=== PATIENT | male | born 1945 | race Caucasian/White ===

== ENCOUNTER 2018-04-17 08:20 | Day surgery (SDC) | payer MEDICARE, SELFPAY ==
[2018-04-17 08:44] VITALS: BP 129/64; PULSE 76; RESP 16; TEMP 36.2; O2SAT 94; BMI 36.3
[2018-04-17 09:40] LABS: Bedside Glucose 201 mg/dL (70-110)
--- NOTE | 2018-04-17 10:11 | PCM.OPRPT ---
Problem List (1) Personal history of colonic polyps Status: Acute Report of Operation Date of Procedure: 04/17/18 Pre-Operative Diagnosis: z86.010 personal history of colonic polyps Post-Operative Diagnosis: Same Surgery/Procedure Performed:: [id number] colonoscopy Type of Anesthesia:: MAC Description of Procedure: Patient was brought into the endoscopy suite. Placed in the left lateral decubitus position. Patient was given graded anesthesia. Colonoscope was inserted into the rectum. It was directed through the rectum, sigmoid colon, descending colon, transverse colon, ascending colon, to the cecum without difficulty operative findings: 1. Cecum: Normal appearance no mass lesions normal ileocecal valve. 2. Ascending colon: Normal appearance no mass lesions. 3. Transverse colon: Normal appearance no mass lesions 4. Descending colon: Normal in appearance no mass lesions. 5. Sigmoid colon: Normal appearance no mass lesions. 6. Rectum: Normal appearance no mass lesions retroflexion did show some internal hemorrhoids. Rectal exam showed no masses smooth prostate He will need another colonoscopy in 10 years - Admit VTE Documentation VTE Present on Admission: No VTE Mechan Device Prophylaxis: None VTE Pharm Prophylaxis ordered?: No Reason prophylaxis not ordered:: Treatment Not Indicated
--- NOTE | 2018-04-17 10:14 | OP.PCM_ITS ---
Problem List (1) Personal history of colonic polyps Status: Acute Report of Operation Date of Procedure: 04/17/18 Pre-Operative Diagnosis: z86.010 personal history of colonic polyps Post-Operative Diagnosis: Same Surgery/Procedure Performed:: [id number] colonoscopy Type of Anesthesia:: MAC Description of Procedure: Patient was brought into the endoscopy suite. Placed in the left lateral decubitus position. Patient was given graded anesthesia. Colonoscope was inserted into the rectum. It was directed through the rectum, sigmoid colon, descending colon, transverse colon, ascending colon, to the cecum without difficulty operative findings: 1. Cecum: Normal appearance no mass lesions normal ileocecal valve. 2. Ascending colon: Normal appearance no mass lesions. 3. Transverse colon: Normal appearance no mass lesions 4. Descending colon: Normal in appearance no mass lesions. 5. Sigmoid colon: Normal appearance no mass lesions. 6. Rectum: Normal appearance no mass lesions retroflexion did show some internal hemorrhoids. Rectal exam showed no masses smooth prostate He will need another colonoscopy in 10 years - Admit VTE Documentation VTE Present on Admission: No VTE Mechan Device Prophylaxis: None VTE Pharm Prophylaxis ordered?: No Reason prophylaxis not ordered:: Treatment Not Indicated
[2018-04-17 10:15] VITALS: BP 116/67; BP 129/64; PULSE 74; RESP 18; TEMP 36.7; O2SAT 94
[2018-04-17 10:20] VITALS: BP 107/80; BP 129/64; PULSE 124; RESP 18; O2SAT 95
[2018-04-17 10:25] VITALS: BP 123/72; BP 129/64; PULSE 73; RESP 18; O2SAT 93
[2018-04-17 10:29] VITALS: BP 123/72; BP 129/64; PULSE 79; RESP 18; TEMP 36.1; O2SAT 94
[2018-04-17 10:43] VITALS: BP 129/64
== END 2018-04-17 10:44 | disposition home or self-care (01) ==
LOC: EN 08:21 → AC 08:21
PROVIDERS: Family Provider Family Medicine; PCP Family Medicine; Visit Provider Surgery
PROC: 0DJD8ZZ Inspection of Lower Intestinal Tract, Via Natural or Artificial Opening Endoscopic (ICD-10-PCS; CPT 45378; principal; 2018-04-17 09:55)
DX: K64.8 Other hemorrhoids (principal); E11.9 Type 2 diabetes mellitus without complications; E78.00 Pure hypercholesterolemia, unspecified; I10 Essential (primary) hypertension; Z87.891 Personal history of nicotine dependence; Z86.010 Personal history of colon polyps
CPT/HCPCS: 45378; 82962; J7120; J1610

== ENCOUNTER → 2019-01-08 14:58 | Outpatient (CLI) | payer MEDICARE, SELFPAY ==
--- NOTE | 2019-01-08 15:02 | CT_ITS ---
We are attempting to reach Joaquim Travis, TANIA to discuss findings. An addendum with communication details will be sent when the communication is complete. STUDY: CT ABDOMEN AND PELVIS WITH CONTRAST REASON FOR EXAM: Male, 73 years old. Suspected partial intestinal obstruction RADIATION DOSAGE (If Supplied By Facility): CTDIvol = ( 19.34 ) mGy, DLP = ( 2257.15 ) mGycm TECHNIQUE: Transaxial images were obtained from the dome of the diaphragm to the symphysis pubis with oral contrast. 100 IV/Oral Isovue 300 was administered. Sagittal and coronal images were reconstructed. Individualized dose optimization techniques were used for this CT. COMPARISON: None. FINDINGS: The visualized lung bases are unremarkable. The visualized portions of the heart are within normal limits. Normal liver. There are layering gallstones within the otherwise normal gallbladder. Normal biliary ductal system. Normal spleen. Normal pancreas. Normal bilateral adrenal glands. There is mild stranding of the right. Nephric fat. The kidney appears grossly normal. There is no renal calculi and hydronephrosis. Normal right ureter. There is mild stranding of the left perinephric fat. There is there are at least 3 cortical cysts, 2 of which appear exophytic. There is no renal calculi. The left ureter appears minimally prominent at. There is a irregular calcific density at the level of the left UVJ which may be partially obstructing the ureter. Normal visualized stomach. Normal small intestine. Normal colon. The appendix is visualized and appears normal. There is diffuse atherosclerotic calcification of the abdominal aorta, without a demonstrated aneurysm. Normal inferior vena cava. Normal retroperitoneum. Urinary bladder is well distended. The prostate is enlarged and invaginates into the bladder floor. In the left pelvis adjacent to the projecting prostate is irregular star shaped calcification measuring 2.4 x 2.6 x 2 cm which is thought to partially obstruct the left ureter. No other masses are seen in the bladder lumen. No pelvic lymphadenopathy. No free air or free fluid is seen within the peritoneal cavity. Normal abdominal wall. There are diffuse degenerative changes of the visualized lumbar spine. CT/Abdomen/Pelvis WITH Contrast IMPRESSION: 1. Large irregular calcification left pelvis. This may be causing partial obstruction of the left ureter. This is thought to represent a bladder calculus. 2. Markedly enlarged prostate which invaginates in the bladder floor. 3. Mild stranding of the bilateral perinephric fat. 4. Left renal calculi. 5. Gallstones without acute cholecystitis. 6. Degenerative changes of the lumbar spine Electronically Signed: Arben Simmons DO at 16:01 EDT Tel [phone], Service support ,
[2019-01-08 15:16] LABS: CREATININE FINGERSTICK 1.2 mg/dL (0.70-1.30); EGFR FINGERSTICK > 60.0000 mL/min (>60)
== END ==
PROVIDERS: Family Provider Family Medicine; PCP Family Medicine; Referring Provider Physician Assistant; Visit Provider Physician Assistant
DX: K56.600 Partial intestinal obstruction, unspecified as to cause (principal)
CPT/HCPCS: 74177; Q9967

== ENCOUNTER 2019-02-07 10:22 | Day surgery (SDC) | payer MEDICARE, SELFPAY ==
[2019-02-07 11:14] VITALS: BP 143/66; PULSE 68; RESP 18; TEMP 36.4; O2SAT 99; BMI 36.4
[2019-02-07] MEDS: Cefazolin 2 GM in 0.9% Normal Saline 100 ML IV (13:35)
--- NOTE | 2019-02-07 13:39 | DCINST_ITS ---
Discharge Diet: Light diet - advance as tolerated Discharge Activity: Return to Normal Activity Call your doctor if you observe: Fever of 101 or Higher Suture Line Care: Avoid Pulling/Pushing, Avoid Pinching/Bending Instructions: Cystoscopy Allergies/Adverse Reactions: Allergies amoxicillin Allergy (Verified 02/07/19 11:13) Rash Medications to take at Discharge Atenolol [Tenormin (beta Marcela)] 50 mg PO DAILY 04/21/15 Glimepiride [Amaryl] 4 mg PO BID 04/21/15 Insulin Glargine,Hum.rec.anlog [Lantus] 70 unit SQ QHS 04/21/15 Lisinopril [Zestril] 10 mg PO DAILY 04/21/15 Metformin HCl [Glucophage] 1,000 mg PO BIDCM 04/21/15 Simvastatin [Zocor] 40 mg PO QHS 04/21/15 Ciprofloxacin [Cipro] 500 mg PO BID #6 tab 02/07/19 Primary Care Physician: Jeff Subramanian MD [Primary Care Provider] - Test Results: Test results from this visit will be discussed in further detail at your follow- up appointment, if applicable. Please Follow Up With: Tom Daley MD When: in 2 weeks, please call to make an appointment.
--- NOTE | 2019-02-07 14:20 | OP.PCM_ITS ---
Report of Operation Date of Procedure: 02/07/19 Pre-Operative Diagnosis: Bladder stone and BPH with obstruction Post-Operative Diagnosis: Same Surgery/Procedure Performed:: Cystoscopy and cystolitholapaxy and laser of a very large bladder stone and evacuation of stone fragments Description of Surgical Findings:: 73-year-old male with a large bladder stone presents to the office with frequency urgency in terms and BPH and obstructive symptoms in the office we found a very large bladder stone large obstructive prostate today we will proceed with a cystoscopy to evaluate the bladder stone removal bladder stones and then will just discuss options for treatment for his prostate. Patient was taken back to the operating room at the smooth induction of anesthesia he was placed in dorsolithotomy position the penis testicles were prepped and draped in usual sterile fashion. Went into the bladder with a 26 [place]inean continuous flow resectoscope put in the obturator sheath with the laser bridge to the resectoscope I then used a 2000 laser fiber encountered a large stone with multiple branches in the bladder base I then used the laser and laser the stone little tiny pieces all the stones then were flushed out of the bladder took quite a long time the laser the stone it was a very large stone and then once I got done lasering the stone then looked at the anatomy he had a very heavily trabeculated bladder with left lateral diverticuli a lot of heavy trabeculation the prostate was obstructed he had a large median lobe large lateral lobes probably his best treatment option would be a TURP I will talk to the patient after words regarding this for now we will start him on medical therapy with Flomax. At the end of the case he had a significant amount of trauma within the bladder and prostate because of the lesion is large stone I do not think he will be able to urinate successfully we left a 20 Guinean catheter into help drain the bladder over the weekend and he will be back on Sunday or Sunday to remove the catheter patient's anesthetic is currently being reversed. Type of Anesthesia:: General Drains: askew - Admit VTE Documentation VTE Present on Admission: No VTE Mechan Device Prophylaxis: SCD's
[2019-02-07 14:30] VITALS: BP 136/83; BP 143/66; PULSE 75; RESP 16; TEMP 36.6; O2SAT 94
[2019-02-07 14:45] VITALS: BP 143/66; BP 147/76; PULSE 71; RESP 18; O2SAT 93
[2019-02-07 14:56] LABS: Bedside Glucose 94 mg/dL (70-110)
[2019-02-07 15:00] VITALS: BP 143/66; BP 149/80; PULSE 77; RESP 18; TEMP 36.2; O2SAT 94
[2019-02-07 15:35] VITALS: BP 143/66; BP 152/75; PULSE 68; RESP 16; TEMP 36.1; O2SAT 94
[2019-02-11 05:06] LABS: Bedside Glucose 128 mg/dL (70-110)
== END 2019-02-07 16:55 | disposition home or self-care (01) ==
LOC: SDC 10:24 → AC 10:25
PROVIDERS: Family Provider Family Medicine; PCP Family Medicine; Referring Provider Urology; Visit Provider Urology
PROC: (CPT 52318; principal; 2019-02-07 12:40)
DX: N40.1 Benign prostatic hyperplasia with lower urinary tract symptoms (principal); N21.0 Calculus in bladder; N32.89 Other specified disorders of bladder; R33.8 Other retention of urine; R35.0 Frequency of micturition; R39.15 Urgency of urination; N13.8 Other obstructive and reflux uropathy; E11.9 Type 2 diabetes mellitus without complications; I10 Essential (primary) hypertension; Z87.891 Personal history of nicotine dependence; G47.30 Sleep apnea, unspecified; H26.9 Unspecified cataract; H91.90 Unspecified hearing loss, unspecified ear; E66.9 Obesity, unspecified; Z68.38 Body mass index [BMI] 38.0-38.9, adult
CPT/HCPCS: 00910; 52318; 82962; J7120; J2405

== ENCOUNTER 2019-11-18 08:38 | Emergency (ER) | payer MEDICARE, SELFPAY ==
[2019-11-18 08:41] VITALS: BP 168/89; PULSE 79; RESP 16; TEMP 36.4; O2SAT 96; BMI 37.3
--- NOTE | 2019-11-18 08:54 | CT_ITS ---
STUDY: CT ABDOMEN AND PELVIS WITH CONTRAST REASON FOR EXAM: Male, 74 years old. PT STATED LOWER ABDOM PAIN, HX OF HTN, DIABETIC RADIATION DOSAGE (If Supplied By Facility): CTDIvol = ( 16.98 ) mGy, DLP = ( 1501.70 ) mGycm TECHNIQUE: Transaxial images were obtained from the dome of the diaphragm to the symphysis pubis with oral contrast. Oral and amp; IV Gastrografin and amp; 100mL Isovue-300 was administered. Sagittal and coronal images were reconstructed. Individualized dose optimization techniques were used for this CT. COMPARISON: Comparison is made with prior study dated January 08, 2019. FINDINGS: Stable minimal increased markings at the lung bases suggestive of mild scarring. Coronary artery calcification. There is decreased attenuation of the liver consistent with steatosis. Multiple small layering gallstones along the dependent portion of the neck of the gallbladder. Normal spleen. Normal pancreas. Normal bilateral adrenal glands. Normal right kidney. Stable 1 cm cyst in the lower pole of the left kidney. Mild degree of nonspecific bilateral perinephric stranding. There is a small hiatal hernia. Normal small intestine. Normal colon. The appendix is visualized and appears normal. There is diffuse atherosclerotic calcification of the abdominal aorta, without a demonstrated aneurysm. Normal inferior vena cava. Normal retroperitoneum. Distended urinary bladder. Multiple tiny calculi are seen along the posterior bladder base. There are prostatic calcifications. Mild prostatic enlargement with indentation at the bladder base. There is a small umbilical hernia containing fat. Small bilateral inguinal hernias containing fat. There are degenerative changes of the visualized lumbar spine. CT/Abdomen/Pelvis WITH Contrast IMPRESSION: Fatty infiltration of the liver. Multiple small layering gallstones. Distended urinary bladder. Small calculi are seen at the base of the urinary bladder. Mild prostatic hypertrophy with prostatic calcifications. Electronically Signed: Александр Lei, at 11:08 EST , Service support ,
--- NOTE | 2019-11-18 08:56 | ED.VISSUMM ---
- ER Visit Summary Date of Service: 11/18/19 Chief Complaint: Abdominal pain History of Present Illness: The patient is a 74 M who presents with abdominal pain that began earlier this morning. Patient states the pain is constant throughout the morning. Patient describes the pain as aching. Patient states pain is over the lower abdomen. Patient states nothing makes it better or worse. Patient admits to some nausea and vomiting with dry heaves. Patient denies any hematemesis or coffee-ground emesis. Patient denies any diarrhea, melena, or hematochezia. Patient denies any dysuria or hematuria. Physical Examination: Vital signs are stable. Patient is afebrile. Patient is in no acute distress. Oral mucosa is pink and moist. Neck is supple. Trachea is midline. There is no JVD. Heart was regular rate and rhythm. Lungs are clear and equal bilateral. Abdomen is soft. Bowel sounds are normal. There is diffuse tenderness but worse over the lower abdomen. There is no rebound or guarding noted. There are no masses palpated. Cranial nerves II through XII are intact. There are no focal motor or sensory deficits noted. Test Results: CBC showed a mild leukocytosis of 17.4. Comprehensive metabolic profile showed a slightly elevated glucose of 220. CT scan of the abdomen and pelvis was obtained. There is a distended bladder. There is no acute process. Emergency Department Course and Treatment: Patient was given morphine and Zofran here. A straight cath was ordered. Patient was able to urinate 500 cc of urine prior to the straight catheter being placed. Patient felt better after this. Patient was advised of his findings. Patient was instructed to follow-up with his primary care physician in 5 to 7 days. Patient understood and was agreeable with the plan. All questions were answered. Disposition: Discharge home Impression: Abdominal pain This note was generated with [email or web address] dictation software. It may contain incorrect words, spelling, and punctuation that were not noted in review of the chart prior to signing ED Disposition - Plan for ED Patient: Disposition: Home or Assisted Living Diagnosis: Abdominal pain Instructions: URINARY RETENTION, Male, ABDOMINAL PAIN, Unkown Cause, (Male) Referrals: Jeff Subramanian MD [Primary Care Provider] - 5-7 Days
[2019-11-18] MEDS: 0.9% Normal Saline 1,000 ML 1000 ML IV (09:09)
[2019-11-18] MEDS: Morphine 4 MG/ML Syringe IV (09:10)
[2019-11-18] MEDS: Ondansetron 4 MG/2 ML Vial IV ×2 (09:10→11:05)
[2019-11-18 09:27] LABS: Absolute Lymphocyte Count 0.91 X10^3/uL (0.83-4.51); Absolute Neutrophil Count 15.4 X10^3/uL (2.0-7.7); Basophil# 0.04 X10^3/uL; Basophil% 0.2 % (0-1); Eosinophil# 0.03 X10^3/uL; Eosinophils% 0.2 % (0-5); Hematocrit 45.5 % (40-54); Hemoglobin 15.2 g/dL (13.0-16.5); Lymphocyte # 0.91 X10^3/ul (4.0); Lymphocyte % 5.2 % (19-41); Mean Corp Hgb Conc 33.4 g/dL (32-36); Mean Corpuscular Hgb 28.5 pg (27.0-32.0); Mean Corpuscular Volume 85.4 fL (80-94); Mean Platelet Vol. 11.4 fl (6.2-12.0); Monocyte# 0.91 X10^3/uL; Monocyte% 5.2 % (0-10); NRBC Flagged by Analyzer 0 % (0-5); Neutrophil # 15.41 X10^3/uL (2.7-7.7); Neutrophil % 88.8 % (47-70); Platelet Count 195 K/mm3 (150-450); RBC Distribution Width CV 12.6 % (11.6-14.6); RBC Distribution Width SD 38.7 fl (35.1-43.9); Red Blood Count 5.33 M/mm3 (4.6-6.2); White Blood Count 17.4 K/mm3 (4.4-11.0)
[2019-11-18 09:45] LABS: AST(SGOT) 20 U/L (15-37); Alanine Aminotransfer ALT/SGPT 38 U/L (16-61); Albumin, Serum 3.7 g/dL (3.2-5.0); Alkaline Phosphatase 79 U/L (45-117); Anion Gap 6 (5-15); BUN 17 mg/dL (7-18); BUN/Creat Ratio 16.5 RATIO (10-20); Calcium,Total 8.8 mg/dL (8.5-10.1); Chloride 104 mmol/L (98-107); Creatinine, Serum 1.03 mg/dL (0.70-1.30); EST Glomerular Filtration Rate 75 mL/min (>60); Est Glom Filt Rate - Afr Amer 90 mL/min (>60); Estimated Creatinine Clearance 70.03 ml/min; Globulin 3.7 g/dL (2.2-4.2); Glucose 220 mg/dL (74-106); Lipase 130 U/L (73-393); Protein, Total 7.4 g/dL (6.4-8.2); Sodium Level 136 mmol/L (136-145)
[2019-11-18] MEDS: HYDROmorphone 0.5 MG/0.5 ML SYRINGE IV (11:05)
[2019-11-18 11:08] VITALS: BP 145/76; PULSE 82; RESP 16; O2SAT 97
[2019-11-18 11:37] VITALS: BP 196/73; PULSE 91; RESP 19; O2SAT 98
--- NOTE | 2019-11-18 11:43 | NURSING ---
bladder scanned the pt and he had about 201 ml of urine in his bladder. doctor made aware and states that we will be placing a catheter.
--- NOTE | 2019-11-18 12:48 | NURSING ---
THE PT WAS ABLE TO URINATE WITHOUT HAVING TO BE STRAIGHT CATH, 500 CC OUT.
[2019-11-18 13:00] VITALS: BP 174/66; PULSE 92; RESP 16; O2SAT 93
[2019-11-18 13:27] VITALS: BP 174/66; PULSE 92; RESP 16; O2SAT 93
== END 2019-11-18 13:47 | disposition home or self-care (01) ==
PROVIDERS: Emergency Provider Emergency Medicine; PCP Family Medicine
DX: R10.9 Unspecified abdominal pain (principal); N32.89 Other specified disorders of bladder; J34.89 Other specified disorders of nose and nasal sinuses; E66.9 Obesity, unspecified; R11.2 Nausea with vomiting, unspecified; E11.9 Type 2 diabetes mellitus without complications; I10 Essential (primary) hypertension; N40.0 Benign prostatic hyperplasia without lower urinary tract symptoms; E78.00 Pure hypercholesterolemia, unspecified
CPT/HCPCS: 74177; 80053; 83690; 85025; 96361; 96374; 96375; 96376; 99283; Q9967; J2405

== ENCOUNTER 2019-11-19 09:27 | Observation (INO) | payer MEDICARE, SELFPAY ==
[2019-11-18 08:41] VITALS: BMI 37.3
[2019-11-19] VITALS (9 sets, daily range): BP systolic 142–166; BP diastolic 61–84; PULSE 74–109; RESP 16–18; TEMP 36.4–36.9; O2SAT 93–96; BMI 36.7
--- NOTE | 2019-11-19 09:31 | US_ITS ---
STUDY: ABDOMINAL ULTRASOUND - RIGHT UPPER QUADRANT REASON FOR VISIT: Male, 74 years old right abdominal pain x2 days TECHNIQUE: Ultrasound evaluation of the right upper quadrant was performed with real-time and static cesar-scale imaging. TECHNICAL QUALITY: Limited. Examination limited by bowel gas. COMPARISON: None. FINDINGS: Liver: The liver measures 21.2 cm. There is increased echogenicity consistent with fatty infiltration. The bile ducts are within normal limits. There is hepatic color flow. The direction of portal flow is hepatopetal. There is no demonstrated mass lesion. Gallbladder: Distended gallbladder. The gallbladder wall measures 3.1 mm. There is a positive sonographic Rivera''s sign. There is pericholecystic fluid. There are multiple echogenic structures within the gallbladder, consistent with multiple gallstones. Common Bile Duct (C.B.D.): The common bile duct measures 4.0 mm. Pancreas: Normal size of the head, body and tail of the pancreas. There is increased echogenicity of the pancreas. There is no demonstrated pancreatic mass or cyst. Right Kidney: Normal size of the right kidney. The right kidney measures 13.8 x 6.1 x 7.9 cm. Normal renal cortex. The right cortex measures 1.8 cm. There is no demonstrated renal mass or cyst. There is no right hydronephrosis. US/Abdomen Limited IMPRESSION: Cholelithiasis with gallbladder wall thickening, pericholecystic fluid, and electrical tech/project manager notes a positive Rivera sign. Findings are consistent with acute cholecystitis, surgical consultation recommended Hepatomegaly with diffuse fatty infiltration of the liver Nonspecific echogenic pancreas Electronically Signed: Jason Fitzgerald MD at 11:28 EST , Service support ,
[2019-11-19 10:04] LABS: Absolute Lymphocyte Count 1.08 X10^3/uL (0.83-4.51); Absolute Neutrophil Count 16.4 X10^3/uL (2.0-7.7); Basophil# 0.04 X10^3/uL; Basophil% 0.2 % (0-1); Hematocrit 47.2 % (40-54); Hemoglobin 15.6 g/dL (13.0-16.5); Lymphocyte # 1.08 X10^3/ul (4.0); Lymphocyte % 5.4 % (19-41); Mean Corp Hgb Conc 33.1 g/dL (32-36); Mean Corpuscular Hgb 28.2 pg (27.0-32.0); Mean Corpuscular Volume 85.4 fL (80-94); Mean Platelet Vol. 11.5 fl (6.2-12.0); Monocyte# 2.41 X10^3/uL; NRBC Flagged by Analyzer 0 % (0-5); Neutrophil # 16.42 X10^3/uL (2.7-7.7); Neutrophil % 81.9 % (47-70); POSITIVE DIFFERENTIAL YES; Platelet Count 203 K/mm3 (150-450); RBC Distribution Width SD 39.8 fl (35.1-43.9); Red Blood Count 5.53 M/mm3 (4.6-6.2); White Blood Count 20.1 K/mm3 (4.4-11.0)
[2019-11-19 10:13] LABS: Differential Indicated SCAN CRITERIA MET
[2019-11-19 10:16] LABS: ALB/GLOB Ratio 0.9 RATIO (0.9-2.4); AST(SGOT) 26 U/L (15-37); Alanine Aminotransfer ALT/SGPT 36 U/L (16-61); Albumin, Serum 3.7 g/dL (3.2-5.0); Alkaline Phosphatase 72 U/L (45-117); Anion Gap 9 (5-15); BUN 15 mg/dL (7-18); Calcium,Total 9.2 mg/dL (8.5-10.1); Chloride 106 mmol/L (98-107); Creatinine, Serum 1.07 mg/dL (0.70-1.30); EST Glomerular Filtration Rate 72 mL/min (>60); Est Glom Filt Rate - Afr Amer 87 mL/min (>60); Estimated Creatinine Clearance 67.41 ml/min; Globulin 4.1 g/dL (2.2-4.2); Glucose 172 mg/dL (74-106); Lipase 56 U/L (73-393); Potassium 3.9 mmol/L (3.5-5.1); Protein, Total 7.8 g/dL (6.4-8.2); Sodium Level 137 mmol/L (136-145)
[2019-11-19] MEDS: Morphine 4 MG/ML Syringe IV (10:18)
[2019-11-19] MEDS: 0.9% Normal Saline 1,000 ML 1000 ML IV (10:19)
[2019-11-19] MEDS: Ondansetron 4 MG/2 ML Vial IV (10:19)
[2019-11-19 11:09] LABS: Platelet Estimate ADEQUATE (ADEQ); Platelet Morphology LARGE; Red Cell Morphology NORM C+C NORMAL (NORM C&C)
[2019-11-19 11:50] LABS: Color, Urine Yellow (Yellow); Glucose, Dipstick 100 mg/dl (Normal); Leukocyte Esterase-Dipstick Negative /ul (Negative); Nitrite-Dipstick Negative (Negative); Occult Blood-Urine 25 /ul (Negative); Protein-Dipstick 30 mg/dl (Negative); Specific Gravity, Urine 1.025 (1.002-1.030); Urine Bilirubin Dipstick Negative (Negative); Urine Clarity Clear (Clear); Urine Urobilinogen Normal (Normal)
[2019-11-19 12:03] LABS: Ketone-Dipstick 150 mg/dl (Negative)
[2019-11-19 12:05] LABS: Bacteria 1+ /hpf (None Seen); Mucous, Urine 4+ /hpf (<or=2+); Red Blood Cells-Urine 0-5 SEEN /hpf (0-5); Squamous Epithelial Cells - UA 0-5 SEEN /hpf (0-5); White Blood Cells 0-5 SEEN /hpf (0-5)
--- NOTE | 2019-11-19 13:47 | ED.VISSUMM ---
- ER Visit Summary Date of Service: 11/19/19 Chief Complaint: Abdominal pain History of Present Illness: The patient is a 74 M who presents with abdominal pain that became worse today. Patient was seen here yesterday for lower abdominal pain. At that time CT scan showed a distended bladder and the patient felt better after urinating. CT scan also showed some gallstones but there was no pericholecystic fluid at that time. Patient states today the pain has progressed up to the right upper quadrant. Patient states his last meal was 230 yesterday afternoon and was toast. Patient states that he does not feel hungry. Patient denies any fevers or chills. Physical Examination: Vital signs are stable. Patient is afebrile. Patient is in no acute distress. Oral mucosa is pink and moist. Neck is supple. Trachea is midline. There is no JVD. Heart was regular rate and rhythm. Lungs are clear and equal bilateral. Abdomen is soft. Bowel sounds are normal. There is right upper quadrant tenderness. There is no rebound or guarding noted. Cranial nerves II through XII are intact. There are no focal motor or sensory deficits noted. Test Results: CBC shows a leukocytosis of 20.1. Comprehensive metabolic profile was essentially within normal limits. Right upper quadrant ultrasound was obtained. There are gallstones with pericholecystic fluid, gallbladder wall thickening, and a positive sonographic Rivera sign. Emergency Department Course and Treatment: Patient was given morphine and Zofran here. Message was left for Dr. Valle who was in surgery. Patient will be admitted to the service of Dr. Nuñez is a surgical outpatient for cholecystectomy. Patient and family understood and were agreeable with the plan. All questions were answered. Disposition: Admit for surgery Impression: Acute cholecystitis This note was generated with [employer] dictation software. It may contain incorrect words, spelling, and punctuation that were not noted in review of the chart prior to signing ED Disposition - Plan for ED Patient: Disposition: [facility] Care [facility] Diagnosis: Acute cholecystitis Referrals: Jeff Subramanian MD [Primary Care Provider] -
--- NOTE | 2019-11-19 14:03 | EKG12_ITS ---
Test Reason : PRE-OP Blood Pressure : / mmHG Vent. Rate : 130 BPM Atrial Rate : 130 BPM P-R Int : 196 ms QRS Dur : 128 ms QT Int : 316 ms P-R-T Axes : 038 263 -08 degrees QTc Int : 465 ms Sinus tachycardia with Premature atrial complexes Right bundle branch block Abnormal ECG When compared with ECG of 26-OCT-2001 05:01, Premature atrial complexes are now Present Right bundle branch block is now Present Confirmed by ROLAND SAMUEL, MIGUEL ANGEL ([id number]), pictures editor IFTIKHAR PEDRO ([id number]) on 11/24/2019 4:08:56 PM Referred By: Hayden Nuñez Confirmed By:MIGUEL ANGEL WATKINS MD
--- NOTE | 2019-11-19 14:28 | PCM.HP.STD ---
Problem List (1) Acute cholecystitis Status: Acute History of Present Illness Date of Admission: 11/19/19 The patient is a 74 year old M who reports that he has been having right upper quadrant pain since yesterday afternoon. He had nausea but no vomiting. No fevers or chills. He is never had anything like this in the past. Past Medical History Medical History: Medical History (Last Reviewed 04/06/18 @ 11:[address] Fito Mendez MD) Diabetes E11.9 hypercholesterolemia HTN (hypertension) I10 Allergies amoxicillin Allergy (Verified 11/19/19 09:29) Rash Home Medications: Ambulatory Orders Medication Instructions Recorded Atenolol [Tenormin (beta Marcela)] 50 mg PO DAILY 04/21/15 Glimepiride [Amaryl] 4 mg PO BID 04/21/15 Insulin Glargine,Hum.rec.anlog 70 unit SQ QHS 04/21/15 [Lantus] Lisinopril [Zestril] 10 mg PO DAILY 04/21/15 Simvastatin [Zocor] 40 mg PO QHS 04/21/15 metFORMIN HCl [Glucophage] 1,000 mg PO BIDCM 04/21/15 Tamsulosin HCl [Flomax] 0.4 mg PO DAILY #30 cap 02/07/19 Finasteride 5 mg PO DAILY 11/18/19 Surgical History: Surgical History (Last Reviewed 04/06/18 @ 11:[address] Fito Mendez MD) H/O hemorrhoidectomy Z98.890 h/o wrist surgery Surgical History: - - Umbilical hernia repair Smoking Status: Former smoker Tobacco Use: Cigarettes Review of Systems Constitutional: Denies: Anorexia, Fever, Night Sweats Cardiovascular: Denies: Chest Pain Respiratory: Denies: Cough, Shortness of Breath Gastrointestinal: Reports: Abdominal Pain, Nausea. Denies: Vomiting Musculoskeletal: Denies: Arm Pain, Back Pain, Joint Tenderness Skin: Denies: Dryness, Jaundice Neurological: Denies: Balance problems VTE Information - Inpt Only VTE Present on Admission: No VTE Mechan Device Prophylaxis: SCD's Patient Problems: Active and Suspected Problems (Last Reviewed 04/06/18 @ 11:[address] Fito Mendez MD) Acute cholecystitis (Acute) - Physical Exam Vitals/I&O's: Vital Signs Temp Pulse Resp BP Pulse Ox 98.4 F 74 16 152/74 H 95 11/19/19 14:04 11/19/19 14:04 11/19/19 14:04 11/19/19 14:04 11/19/19 14:04 Oxygen Delivery Method Room Air Weight: 278 lb 3.574 oz Body Mass Index (BMI) 36.7 Finger Stick Blood Glucose 94 Intake and Output for Last 24 Hours 11/17/19 11/18/19 11/19/19 23:59 23:59 23:59 Intake Total 1000 / 1000 Balance 1000 / 1000 General: Alert, Oriented x3 Neck: No JVD Lungs: Normal air movement Cardiovascular: Regular rate, Regular Rhythm Abdomen: Soft, Non-Distended, Tender - Tender in the right upper quadrant with no guarding Neurological: Cranial nerves II-XII grossly intact Psych/Mental Status: Normal Affect Laboratory Results 11/19/19 09:45: WBC 20.1 H, RBC 5.53, Hgb 15.6, Hct 47.2, MCV 85.4, MCH 28.2, MCHC 33.1, RDW Std Deviation 39.8, RDW Coeff of Lucia 13.0, Plt Count 203, MPV 11.5, Immature Gran % (Auto) 0.500, Neut % (Auto) 81.9 H, Lymph % (Auto) 5.4 L, [place] % (Auto) 12.0 H, Eos % (Auto) 0.0, Baso % (Auto) 0.2, Absolute Neuts (auto) 16.4 H, Absolute Lymphs (auto) 1.08, Nucleated RBC % 0, Diff Path Review January, Platelet Estimate ADEQUATE, Plt Morphology Comment LARGE, RBC Morphology NORM C+C 11/19/19 09:45: Sodium 137, Potassium 3.9, Chloride 106, Carbon Dioxide 22.0, Anion Gap 9, BUN 15, Creatinine 1.07, Estim Creat Clear Calc 67.41, Est GFR (MDRD) Af Amer 87, Est GFR (MDRD) Non-Af 72, BUN/Creatinine Ratio 14.0, Glucose 172 H, Calcium 9.2, Total Bilirubin 0.90, AST 26, ALT 36, Alkaline Phosphatase 72, Total Protein 7.8, Albumin 3.7, Globulin 4.1, Albumin/Globulin Ratio 0.9, Lipase 56 L 11/19/19 11:35: Urine Color Yellow, Urine Clarity Clear, Urine pH 5.0, Ur Specific [place] 1.025, Urine Protein 30 H, Urine Glucose (UA) 100 H, Urine Ketones 150 H, Urine Occult Blood 25 H, Urine Nitrite Negative, Urine Bilirubin Negative, Urine Urobilinogen Normal, Ur Leukocyte Esterase Negative, Urine RBC 0-5 SEEN, Urine WBC 0-5 SEEN, Ur Squamous Epith Cells 0-5 SEEN, Urine Bacteria 1+, Urine Mucus 4+ Clinical Impression(s) from Imaging Studies Abdomen Ultrasound 11/19/19 09:31 IMPRESSION: Cholelithiasis with gallbladder wall thickening, pericholecystic fluid, and wellness coordinator notes a positive Rivera sign. Findings are consistent with acute cholecystitis, surgical consultation recommended Hepatomegaly with diffuse fatty infiltration of the liver Nonspecific echogenic pancreas Electronically Signed: Jason Fitzgerald MD at 11:28 EST , Service support , Current Medications Clindamycin Phosphate 900 mg/ (Dextrose) 106 mls @ 150 mls/hr IV PREOP ONE Stop: 11/19/19 15:01 Assessment/Plan All Active Problems (Last Reviewed 04/06/18 @ 11:[address] Fito Mendez MD) Personal history of colonic polyps (Acute) Acute cholecystitis (Acute) 74-year-old male with acute cholecystitis 1. The patient has thickening of his gallbladder with pericholecystic fluid on the ultrasound. Patient also has an elevated white count with left shift. Patient likely has acute cholecystitis. I discussed this with the patient in detail and recommended laparoscopic cholecystectomy today. Patient is diabetic and will need diabetic management after surgery. Patient will be given clindamycin due to his amoxicillin allergy. Plan to take the patient today for laparoscopic cholecystectomy. 2. I discussed the procedure in detail with the patient. I discussed the risks, benefits, and alternatives of the procedure. I discussed the risks including but not limited to bleeding, infection, injury to surrounding organs such as the liver, bile duct, bowels. I did discuss the possibility of having to convert to an open procedure as well as the possibility that if any injuries occurred this may necessitate further surgery at a tertiary care center. Hayden Nuñez MD Pager: [facility] [address] [place] [address], [address] [place] [address] Office:
[2019-11-19 14:31] LABS: Bedside Glucose 189 mg/dL (70-110)
--- NOTE | 2019-11-19 14:45 | RAD_ITS ---
STUDY: INTRAOPERATIVE CHOLANGIOGRAM. REASON FOR EXAM: Male, 74 years old. LAP KRISTIAN -- 5 CINE RUNS, 81.14mGy, 77.8 FLUORO SEC FLUOROSCOPY TIME (if supplied): ( 77.8 seconds ) minutes/seconds TECHNIQUE: An intraoperative Cholangiogram was performed by the surgeon. Imaging was submitted. COMPARISON: None. FINDINGS: Contrast is seen within the gallbladder and the cystic duct. There is faint opacification of the common bile duct. RAD/Cholangiogram/ O R,Initial IMPRESSION: Limited examination. Electronically Signed: Александр Lei, at 11:10 EST , Service support ,
--- NOTE | 2019-11-19 15:05 | GALL_PTH ---
PATIENT: INGRIS BALBUENA LOC: MS3 U#:[id number] AGE/SX: 74/M [place] [facility] [place]: Dr. Hayden Nuñez MD : [id number] BED: 1 DIS: 11/21/2019 SPEC #: [id number] RECD: 11/20/19 09:11 STATUS: GIORGIO HDZ #: [id number] CHELSI: 11/19/19 15:[address]: Hayden Nuñez DEPT: SURGICAL PATHOLOGY RECD BY: Zeferino Bianchi ENTERED: 11/20/19 09:36 SP TYPE: DEN ESPOSITO DR: Dr. Jeff Subramanian MD Tissues: Gallbladder, NOS Procedures: Surgery Specimen Level III HEADER OPERATION: Laparoscopic cholecystectomy with IOC PRE-OP DIAGNOSIS: Acute cholecystitis TISSUE SUBMITTED: Gallbladder MICROSCOPIC DIAGNOSIS Gallbladder, cholecystectomy: Acute and chronic hemorrhagic and ulcerated cholecystitis and cholelithiasis. SJ:eugene 11/21/19 MICROSCOPIC DESCRIPTION Slides are reviewed. GROSS DESCRIPTION Received is one container labeled with the patient's name and designated gallbladder. The specimen consists of a gallbladder measuring 8 cm in length and up to 4 cm in diameter. The external surface is pink-pratt, smooth and glistening for the most part. Focally it is granular, hemorrhagic and contains cautery artifact. The gallbladder contains a small amount of hemorrhagic bile and multiple black-brown, slightly irregular stones measuring in aggregate 4 x 3 x 1 cm and 0.1 to 0.3 cm in greatest dimension. The mucosa is congested and ulcerated. The gallbladder wall measures up to 0.5 cm in thickness. Sections of the gallbladder wall reveal congested and hemorrhagic cut surfaces. Sample Grader sections from the gallbladder and the cystic duct are submitted in one cassette. / KAIN:eugene 11/20/19 TC:2 CPT: 98112
[2019-11-19] MEDS: Bupiv/Epi 0.25% 30 ML Vial (15:55)
--- NOTE | 2019-11-19 16:16 | PCM.OPRPT ---
Problem List (1) Acute cholecystitis Status: Acute Report of Operation Date of Procedure: 11/19/19 Pre-Operative Diagnosis: Acute cholecystitis Post-Operative Diagnosis: Same Surgery/Procedure Performed:: Laparoscopic cholecystectomy with attempted cholangiogram Specimen's removed: Gallbladder and contents Description of Procedure: After obtaining informed consent patient was brought back to the operating room. General anesthesia was induced. The abdomen was prepped and draped in usual sterile fashion. A small midline incision was made superior to the umbilicus and deepened to the level of fascia. The fascia was elevated and incised. Next the peritoneum was elevated and incised in the same fashion. Finger sweep was performed and the Rodriges trocar was placed into the abdomen. The balloon was inflated. The abdomen was inflated to 15 mmHg. Next a camera was introduced into the abdomen and the abdomen was inspected. Next under direct visualization three 5-mm ports were placed one subxiphoid and 2 subcostal. The gallbladder was very inflamed and gangrenous at the fundus. The contents were aspirated using an aspiration needle. Next the gallbladder was elevated and retracted toward the right shoulder. The peritoneum was stripped from the gallbladder. The infundibulum was located and retracted laterally. Next the triangle of Calot was dissected and the cystic duct and cystic artery were identified. Cholangiograms were performed. The Hunter clamp was used to clamp across the infundibulum and the catheter needle was inserted into the gallbladder. Under fluoroscopy contrast was instilled into the gallbladder. The contrast mostly flowed up into the gallbladder. Not much flow down into the cystic duct and into the common duct. There was a small trickle of contrast that went into the common bile duct indicating that this was in fact the cystic duct but not enough contrast entered the duct to show filling of the small bowel. The clamp was removed as well as the needle and the infundibulum was grasped once more. Three hemolock clips were placed across the cystic duct. The cystic duct was then divided leaving 2 clips on the stump. The cystic artery was clipped and divided in the same fashion. The hook cautery was then used to take the gallbladder off of the gallbladder bed. Hemostasis was obtained. Gallbladder fossa was irrigated and no active bleeding or bile leakage was noted. There was some spillage of stones from the gallbladder during dissection of the gallbladder fossa. These were suctioned up as much as possible. Next the camera was introduced in the subxiphoid port. An Endopouch bag was placed through the umbilical port and the gallbladder was placed into it. The gallbladder was then removed through the umbilical incision. The camera was then reinserted through the umbilical port. The gallbladder fossa was inspected once more and noted to be hemostatic with no leaking bile. The abdomen was suctioned dry. The 5 mm ports were removed under direct visualization. The umbilical port was then removed and the air was removed from the abdomen. Next using an 0 Vicryl suture the umbilical fascia was closed in a [id number] fashion. The umbilical port site was irrigated local anesthetic was administered to all the incisions. All the incisions were closed with interrupted subcuticular 4-0 Monocryl sutures followed by Steri-Strips and dressings. The patient was awoken and taken to PACU in stable condition. - Admit VTE Documentation VTE Mechan Device Prophylaxis: SCD's
[2019-11-19 16:36] LABS: Bedside Glucose 194 mg/dL (70-110)
[2019-11-19] MEDS: Lactated Ringers 1,000 ML 80 ML IV (16:49)
[2019-11-19] MEDS: Insulin Lispro 100 UNIT/ML INSULN.PEN SC ×2 (17:45→23:23)
[2019-11-19 17:55] LABS: Bedside Glucose 257 mg/dL (70-110)
[2019-11-19] MEDS: Atorvastatin Calcium 20 MG Tablet PO (20:46)
[2019-11-19 23:31] LABS: Bedside Glucose 195 mg/dL (70-110)
[2019-11-20] MEDS: oxyCODONE 5 MG Tablet PO (02:28)
--- NOTE | 2019-11-20 02:42 | NURSING ---
Patient walked 3 laps in the hallway with this RN at this time, tolerated well.
[2019-11-20 02:43] VITALS: BP 173/94; PULSE 88; RESP 18; TEMP 37.1; O2SAT 94
[2019-11-20] MEDS: Lactated Ringers 1,000 ML 80 ML IV ×2 (05:27→17:22)
[2019-11-20 05:45] LABS: Absolute Neutrophil Count 12.4 X10^3/uL (2.0-7.7); Basophil# 0.02 X10^3/uL; Basophil% 0.1 % (0-1); Eosinophil# 0.02 X10^3/uL; Eosinophils% 0.1 % (0-5); Hematocrit 43.4 % (40-54); Lymphocyte % 8.9 % (19-41); Mean Corp Hgb Conc 32.3 g/dL (32-36); Mean Corpuscular Hgb 27.8 pg (27.0-32.0); Mean Corpuscular Volume 86.3 fL (80-94); Mean Platelet Vol. 11.5 fl (6.2-12.0); Monocyte# 1.81 X10^3/uL; Monocyte% 11.5 % (0-10); NRBC Flagged by Analyzer 0 % (0-5); Neutrophil # 12.39 X10^3/uL (2.7-7.7); POSITIVE DIFFERENTIAL YES; Platelet Count 171 K/mm3 (150-450); RBC Distribution Width CV 13.1 % (11.6-14.6); RBC Distribution Width SD 40.8 fl (35.1-43.9); Red Blood Count 5.03 M/mm3 (4.6-6.2); White Blood Count 15.7 K/mm3 (4.4-11.0)
[2019-11-20] MEDS: Insulin Lispro 100 UNIT/ML INSULN.PEN SC ×3 (06:03→21:59)
[2019-11-20 06:11] LABS: Bedside Glucose 150 mg/dL (70-110)
[2019-11-20 06:18] LABS: Differential Indicated SCAN CRITERIA MET
[2019-11-20 06:26] LABS: ALB/GLOB Ratio 0.7 RATIO (0.9-2.4); AST(SGOT) 50 U/L (15-37); Alanine Aminotransfer ALT/SGPT 38 U/L (16-61); Albumin, Serum 2.9 g/dL (3.2-5.0); Alkaline Phosphatase 60 U/L (45-117); Anion Gap 5 (5-15); BUN 13 mg/dL (7-18); BUN/Creat Ratio 15.3 RATIO (10-20); Calcium,Total 8.3 mg/dL (8.5-10.1); Chloride 106 mmol/L (98-107); Creatinine, Serum 0.85 mg/dL (0.70-1.30); EST Glomerular Filtration Rate 93 mL/min (>60); Est Glom Filt Rate - Afr Amer 113 mL/min (>60); Estimated Creatinine Clearance 84.86 ml/min; Globulin 4.1 g/dL (2.2-4.2); Glucose 136 mg/dL (74-106); Potassium 3.7 mmol/L (3.5-5.1); Sodium Level 138 mmol/L (136-145)
[2019-11-20 08:03] VITALS: BP 158/77; PULSE 73; RESP 18; TEMP 36.2; O2SAT 95
[2019-11-20] MEDS: Finasteride 5 MG Tablet PO (08:09)
[2019-11-20] MEDS: Tamsulosin HCl 0.4 MG Capsule PO (08:09)
[2019-11-20] MEDS: Lisinopril 10 MG Tablet PO (08:10)
[2019-11-20] MEDS: Atenolol 50 MG Tablet PO (08:10)
[2019-11-20 09:24] LABS: Pathologist Review Reviewed
[2019-11-20 12:50] LABS: Bedside Glucose 179 mg/dL (70-110)
[2019-11-20 13:08] LABS: Pathologist Review Reviewed
[2019-11-20 14:20] VITALS: BP 120/70; PULSE 84; RESP 18; TEMP 36.7; O2SAT 95
--- NOTE | 2019-11-20 14:54 | CASEMGMT ---
NILDA BELLA NOTE: To room to review ADLER form. Pt sitting up in chair in room, sitting beside pt visiting. Pt states he is [place] and asks RN SHAYNE to review with his . ADLER form reviewed with and questions answered. Form signed by , copy made and placed on chart, and original given to . made aware if she has any further questions to ask for CM. She voices understanding. Cj SHINE RN CM
[2019-11-20] MEDS: metFORMIN HCl 1,000 MG Tablet 1000 MG PO (17:21)
[2019-11-20 17:25] LABS: Bedside Glucose 124 mg/dL (70-110)
[2019-11-20 21:54] VITALS: BP 135/68; PULSE 90; RESP 20; TEMP 36.5; O2SAT 98
[2019-11-20] MEDS: Atorvastatin Calcium 20 MG Tablet PO (21:59)
[2019-11-20 22:26] LABS: Bedside Glucose 181 mg/dL (70-110)
[2019-11-21 02:06] VITALS: BP 139/68; PULSE 87; RESP 18; TEMP 36.7; O2SAT 94
[2019-11-21 06:45] LABS: Bedside Glucose 137 mg/dL (70-110)
[2019-11-21 07:50] VITALS: BP 140/67; PULSE 78; RESP 18; TEMP 36.7; O2SAT 93
[2019-11-21] MEDS: Tamsulosin HCl 0.4 MG Capsule PO (07:51)
[2019-11-21] MEDS: Finasteride 5 MG Tablet PO (07:51)
[2019-11-21] MEDS: metFORMIN HCl 1,000 MG Tablet 1000 MG PO (07:56)
[2019-11-21] MEDS: Atenolol 50 MG Tablet PO (07:56)
[2019-11-21] MEDS: Lisinopril 10 MG Tablet PO (07:56)
--- NOTE | 2019-11-21 09:11 | DCINST_ITS ---
Discharge Diet: Light diet - advance as tolerated Discharge Activity: Return to Normal Activity, May Not Drive - for 2-3 days or while taking narcotic pain medicataions., - - Do not drive, work heavy equipment or sign legal documents for 24 hours. May shower in (days): 1 - with the bandage in place. Lifting Restrictions: 20 lbs for 2 weeks Additional Activity Instructions:: Pain medication may cause nausea. You should typically eat light foods as you take your pain medications. Pain medication may also cause constipation. If this is a problem for you, please discuss with your doctor. Call your doctor if your incision/area has: Continuous Slow Oozing, Sudden Increased Bleeding, Increased Pain/ Swelling, Increased Redness, Foul Smelling Discharge, Fever of 101 or Higher Call your doctor if you observe: Fever of 101 or Higher Suture Line Care: Avoid Pulling/Pushing, Avoid Pinching/Bending Additional Dressing/Incision Instructions:: Leave operative bandaids on for 2 days. When you remove dressing, leave Steri-Strips on until your follow-up appointment, or until the Steri-Strips fall off on their own. Allergies/Adverse Reactions: Allergies amoxicillin Allergy (Verified 11/19/19 09:29) Rash Medications to take at Discharge Atenolol [Tenormin (beta Marcela)] 50 mg PO DAILY 04/21/15 Glimepiride [Amaryl] 4 mg PO BID 04/21/15 Insulin Glargine,Hum.rec.anlog [Lantus] 70 unit SQ QHS 04/21/15 Lisinopril [Zestril] 10 mg PO DAILY 04/21/15 Simvastatin [Zocor] 40 mg PO QHS 04/21/15 metFORMIN HCl [Glucophage] 1,000 mg PO BIDCM 04/21/15 Tamsulosin HCl [Flomax] 0.4 mg PO DAILY #30 cap 02/07/19 Finasteride 5 mg PO DAILY 11/18/19 Test Results: Test results from this visit will be discussed in further detail at your follow- up appointment, if applicable. Please Follow Up With: Hayden Nuñez MD When: Please call to schedule 2 week follow up appointment. [phone]
--- NOTE | 2019-11-21 10:03 | DS.PCM_ITS ---
Discharge Date and Diagnosis Date of Admission: 11/19/19 Date of Discharge: 11/21/19 Hospital Course and Treatment Imaging Results: Clinical Impression(s) from Imaging Studies Abdomen Ultrasound 11/19/19 09:31 IMPRESSION: Cholelithiasis with gallbladder wall thickening, pericholecystic fluid, and director security management notes a positive Rivera sign. Findings are consistent with acute cholecystitis, surgical consultation recommended Hepatomegaly with diffuse fatty infiltration of the liver Nonspecific echogenic pancreas Electronically Signed: Jason Fitzgerald MD at 11:28 EST , Service support , Cholangiogram 11/19/19 14:45 IMPRESSION: Limited examination. Electronically Signed: Александр Lei, at 11:10 EST , Service support , Operations: cholecystecomy Procedures: None Summary of Care Provided: The patient is a 74 year old M presented with right upper quadrant pain and ultrasound and lab work confirmed acute cholecystitis. He was taken to the operating room for laparoscopic cholecystectomy and he was found to have gangrenous cholecystitis. Surgery went well and he was admitted to the floor but the following day he was not passing any flatus. He was kept on clear liquids until he started passing flatus in the evening and started on a regular diet. The following morning he was tolerating a regular diet and was discharged home in stable condition. - Physical Exam Vitals/I&O's: Vital Signs Temp Pulse Resp BP Pulse Ox 98.0 F 78 18 140/67 H 93 11/21/19 07:50 11/21/19 07:50 11/21/19 07:50 11/21/19 07:50 11/21/19 07:50 Oxygen Flow Rate (L/min) 4 Oxygen Delivery Method Room Air Weight: 278 lb 3.574 oz Body Mass Index (BMI) 36.7 Finger Stick Blood Glucose 194 Intake and Output for Last 24 Hours 11/19/19 11/20/19 11/21/19 23:59 23:59 23:59 Intake Total 1106 / 1106 2797.33 / 3254.33 694 / 694 Output Total 1750 / 1750 1750 / 1750 Balance -644 / -644 1047.33 / 1504.33 694 / 694 Laboratory Results 11/20/19 05:15: Diff Path Review Reviewed 11/20/19 11:37: POC Glucose 179 H 11/20/19 17:16: POC Glucose 124 H 11/20/19 21:49: POC Glucose 181 H 11/21/19 06:35: POC Glucose 137 H Discharge Diet: Light diet - advance as tolerated Discharge Activity: Return to Normal Activity, May Not Drive - for 2-3 days or while taking narcotic pain medicataions., - - Do not drive, work heavy equipment or sign legal documents for 24 hours. May shower in (days): 1 - with the bandage in place. Additional Activity Instructions:: Pain medication may cause nausea. You should typically eat light foods as you take your pain medications. Pain medication may also cause constipation. If this is a problem for you, please discuss with your doctor. Call your doctor if your incision/area has: Continuous Slow Oozing, Sudden Increased Bleeding, Increased Pain/ Swelling, Increased Redness, Foul Smelling Discharge, Fever of 101 or Higher Call your doctor if you observe: Fever of 101 or Higher Suture Line Care: Avoid Pulling/Pushing, Avoid Pinching/Bending Additional Dressing/Incision Instructions:: Leave operative bandaids on for 2 days. When you remove dressing, leave Steri-Strips on until your follow-up appointment, or until the Steri-Strips fall off on their own. Home Medications: Medications to take at Discharge Atenolol [Tenormin (beta salvador)] 50 mg PO DAILY 04/21/15 Glimepiride [Amaryl] 4 mg PO BID 04/21/15 Insulin Glargine,Hum.rec.anlog [Lantus] 70 unit SQ QHS 04/21/15 Lisinopril [Zestril] 10 mg PO DAILY 04/21/15 Simvastatin [Zocor] 40 mg PO QHS 04/21/15 metFORMIN HCl [Glucophage] 1,000 mg PO BIDCM 04/21/15 Tamsulosin HCl [Flomax] 0.4 mg PO DAILY #30 cap 02/07/19 Finasteride 5 mg PO DAILY 11/18/19 Acetaminophen [Tylenol Tablet] 650 mg PO Q4H PRN PRN tab 11/21/19 Primary Care Physician: Jeff Subramanian MD [Primary Care Provider] - Please Follow Up With: Hayden Nuñez MD When: Please call to schedule 2 week follow up appointment. [phone] Medical Necessity - Tobacco Use Smoking Status: Former smoker Tobacco Use: Cigarettes Meaningful Use Info Meaningful Use Diagnoses (Choose all that apply): None applicable
== END 2019-11-21 09:32 | disposition home or self-care (01) ==
LOC: ED 13:52 → SDC 13:59 → AC 13:59 → SDC 16:41 → MS3 16:41
PROVIDERS: Admitting Provider Surgery; Emergency Provider Emergency Medicine; PCP Family Medicine; Referring Provider Surgery; Visit Provider Surgery
PROC: (CPT 47610; principal; 2019-11-19 14:45)
DX: K80.12 Calculus of gallbladder with acute and chronic cholecystitis without obstruction (principal); E11.9 Type 2 diabetes mellitus without complications; I10 Essential (primary) hypertension; E78.00 Pure hypercholesterolemia, unspecified; F32.9 Major depressive disorder, single episode, unspecified; K76.0 Fatty (change of) liver, not elsewhere classified; I45.10 Unspecified right bundle-branch block; R00.0 Tachycardia, unspecified; I49.1 Atrial premature depolarization; Z79.899 Other long term (current) drug therapy; Z79.4 Long term (current) use of insulin; Z87.891 Personal history of nicotine dependence
CPT/HCPCS: 47563; 36415; 74300; 76000; 76705; 80053; 81001; 82962; 83690; 85025; 88304; 93005; 96361; 96374; 96375; 99218; 99251; 99284; J7030; J7120; A4216; G0378; G0463; J2405

== ENCOUNTER → 2019-12-20 07:22 | Outpatient (CLI) | payer MEDICARE, SELFPAY ==
[2019-11-19 17:01] VITALS: BMI 36.7
[2019-12-20 07:44] LABS: Absolute Lymphocyte Count 2.09 X10^3/uL (0.83-4.51); Absolute Neutrophil Count 5.1 X10^3/uL (2.0-7.7); Basophil# 0.05 X10^3/uL; Basophil% 0.6 % (0-1); Eosinophil# 0.45 X10^3/uL; Eosinophils% 5.3 % (0-5); Hematocrit 44.6 % (40-54); Hemoglobin 14.6 g/dL (13.0-16.5); Lymphocyte # 2.09 X10^3/ul (4.0); Lymphocyte % 24.4 % (19-41); Mean Corp Hgb Conc 32.7 g/dL (32-36); Mean Corpuscular Hgb 28.1 pg (27.0-32.0); Mean Corpuscular Volume 85.8 fL (80-94); Mean Platelet Vol. 11.3 fl (6.2-12.0); Monocyte# 0.88 X10^3/uL; Monocyte% 10.3 % (0-10); NRBC Flagged by Analyzer 0 % (0-5); Neutrophil # 5.07 X10^3/uL (2.7-7.7); Platelet Count 179 K/mm3 (150-450); RBC Distribution Width CV 12.6 % (11.6-14.6); RBC Distribution Width SD 39.1 fl (35.1-43.9); White Blood Count 8.6 K/mm3 (4.4-11.0)
[2019-12-20 08:12] LABS: ALB/GLOB Ratio 1.1 RATIO (0.9-2.4); AST(SGOT) 24 U/L (15-37); Alanine Aminotransfer ALT/SGPT 44 U/L (16-61); Albumin, Serum 3.7 g/dL (3.2-5.0); Alkaline Phosphatase 73 U/L (45-117); Anion Gap 7 (5-15); BUN 17 mg/dL (7-18); BUN/Creat Ratio 17.2 RATIO (10-20); Calcium,Total 8.7 mg/dL (8.5-10.1); Chloride 106 mmol/L (98-107); Creatinine, Serum 0.99 mg/dL (0.70-1.30); EST Glomerular Filtration Rate 78 mL/min (>60); Est Glom Filt Rate - Afr Amer 95 mL/min (>60); Globulin 3.5 g/dL (2.2-4.2); Glucose 298 mg/dL (74-106); Protein, Total 7.2 g/dL (6.4-8.2); Sodium Level 137 mmol/L (136-145)
== END ==
PROVIDERS: PCP Family Medicine; Referring Provider Surgery; Visit Provider Surgery
DX: K81.0 Acute cholecystitis (principal)
CPT/HCPCS: 36415; 80053; 85025

== ENCOUNTER → 2021-01-24 14:49 | Outpatient (CLI) | payer MEDICARE, SELFPAY ==
[2019-11-19 17:01] VITALS: BMI 36.7
[2021-01-24 15:36] LABS: Absolute Neutrophil Count 5.6 X10^3/uL (2.0-7.7); Basophil# 0.03 X10^3/uL; Basophil% 0.4 % (0-1); Eosinophil# 0.25 X10^3/uL; Eosinophils% 3.1 % (0-5); Hematocrit 45.6 % (40-54); Hemoglobin 14.9 g/dL (13.0-16.5); Lymphocyte % 18.4 % (19-41); Mean Corp Hgb Conc 32.7 g/dL (32-36); Mean Corpuscular Hgb 28.1 pg (27.0-32.0); Mean Corpuscular Volume 85.9 fL (80-94); Mean Platelet Vol. 11.3 fl (6.2-12.0); Monocyte# 0.78 X10^3/uL; Monocyte% 9.5 % (0-10); NRBC Flagged by Analyzer 0 % (0-5); Neutrophil # 5.59 X10^3/uL (2.7-7.7); Neutrophil % 68.4 % (47-70); Platelet Count 215 K/mm3 (150-450); RBC Distribution Width CV 12.5 % (11.6-14.6); RBC Distribution Width SD 38.9 fl (35.1-43.9); Red Blood Count 5.31 M/mm3 (4.6-6.2); White Blood Count 8.2 K/mm3 (4.4-11.0)
[2021-01-24 15:43] LABS: ALB/GLOB Ratio 0.9 RATIO (0.9-2.4); AST(SGOT) 17 U/L (15-37); Alanine Aminotransfer ALT/SGPT 30 U/L (16-61); Albumin, Serum 3.6 g/dL (3.2-5.0); Alkaline Phosphatase 93 U/L (45-117); Anion Gap 5 (5-15); BUN 18 mg/dL (7-18); Calcium,Total 9.1 mg/dL (8.5-10.1); Chloride 105 mmol/L (98-107); Creatinine, Serum 1.06 mg/dL (0.70-1.30); EST Glomerular Filtration Rate 72 mL/min (>60); Est Glom Filt Rate - Afr Amer 87 mL/min (>60); Globulin 3.8 g/dL (2.2-4.2); Glucose 210 mg/dL (74-106); Potassium 4.1 mmol/L (3.5-5.1); Protein, Total 7.4 g/dL (6.4-8.2); Sodium Level 136 mmol/L (136-145)
[2021-01-24 15:52] LABS: Erythrocyte Sedimentation Rate 20 mm/hr (0-20)
[2021-01-24 15:54] LABS: D-Dimer Quantitative (DVT/PE) <= 0.27 FEU/ug/m (0.27-0.49)
[2021-01-24 16:05] LABS: BNP,B-Type NATRIURETIC PEPTIDE 33.9 pg/mL (0-100)
== END ==
PROVIDERS: PCP Family Medicine; Visit Provider Nurse Practitioner Family
DX: R06.02 Shortness of breath (principal)
CPT/HCPCS: 36415; 80053; 83880; 85025; 85379; 85652

== ENCOUNTER 2021-02-05 18:12 | Inpatient (IN) | payer MEDICARE, SELFPAY ==
[2019-11-19 17:01] VITALS: BMI 36.7
[2021-02-05] VITALS (10 sets, daily range): BP systolic 146–185; BP diastolic 68–103; PULSE 89–114; RESP 13–23; TEMP 35.8–36.7; O2SAT 93–96; BMI 37.8; BMI 40.0
--- NOTE | 2021-02-05 18:19 | EKG12_ITS ---
Test Reason : CP Blood Pressure : / mmHG Vent. Rate : 104 BPM Atrial Rate : 326 BPM P-R Int : 000 ms QRS Dur : 138 ms QT Int : 366 ms P-R-T Axes : 000 -84 036 degrees QTc Int : 481 ms Atrial flutter with variable A-V block Left axis deviation Right bundle branch block Abnormal ECG Confirmed by LAURA SAMUEL, SMITHA ([id number]), chief of surgery [facility] ([id number]) on 02/08/2021 9:11:29 AM Referred By: Confirmed By:LUANA SANCHEZ MD
[2021-02-05 18:34] LABS: Absolute Lymphocyte Count 2.15 X10^3/uL (0.83-4.51); Absolute Neutrophil Count 5.7 X10^3/uL (2.0-7.7); Basophil# 0.05 X10^3/uL; Basophil% 0.5 % (0-1); Eosinophils% 3.3 % (0-5); Hemoglobin 15.6 g/dL (13.0-16.5); Lymphocyte # 2.15 X10^3/ul (0.83-4.51); Lymphocyte % 23.3 % (19-41); Mean Corp Hgb Conc 33.9 g/dL (32-36); Mean Corpuscular Hgb 28.5 pg (27.0-32.0); Mean Corpuscular Volume 83.9 fL (80-94); Mean Platelet Vol. 11.4 fl (6.2-12.0); Monocyte# 1.05 X10^3/uL; Monocyte% 11.4 % (0-10); NRBC Flagged by Analyzer 0 % (0-5); Neutrophil # 5.65 X10^3/uL (2.7-7.7); Neutrophil % 61.2 % (47-70); Platelet Count 228 K/mm3 (150-450); RBC Distribution Width SD 36.1 fl (35.1-43.9); Red Blood Count 5.48 M/mm3 (4.6-6.2); White Blood Count 9.2 K/mm3 (4.4-11.0)
--- NOTE | 2021-02-05 18:45 | RAD_ITS ---
STUDY: X-RAY CHEST REASON FOR EXAM: Male, 75 years old. chest pain, having a heart cath done on Sunday. TECHNIQUE: Single AP portable view of the chest. COMPARISON: None. FINDINGS: EKG leads project over the chest. The lungs are clear and expanded. There is no demonstrated pleural abnormality. Normal size heart. Normal mediastinum and shashi. Normal visualized pulmonary arteries. Normal visualized aortic arch and descending thoracic aorta. Normal visualized thoracic spine. Normal visualized ribs, clavicles, and shoulders. There is no demonstrated abnormality of the visualized soft tissue structures of the upper abdomen. RAD/Chest 1 View (Portable) IMPRESSION: Nonacute portable x-ray examination of the chest. Electronically Signed: Lázaro Koehler MD (Brooks) at 18:58 EDT , Service support ,
[2021-02-05 18:52] LABS: Anion Gap 9 (5-15); BUN 25 mg/dL (7-18); BUN/Creat Ratio 22.9 RATIO (10-20); Calcium,Total 9.4 mg/dL (8.5-10.1); Chloride 99 mmol/L (98-107); Creatinine, Serum 1.09 mg/dL (0.70-1.30); EST Glomerular Filtration Rate 70 mL/min (>60); Est Glom Filt Rate - Afr Amer 84 mL/min (>60); Estimated Creatinine Clearance 63.28 ml/min; Glucose 272 mg/dL (74-106); Potassium 4.1 mmol/L (3.5-5.1); Sodium Level 131 mmol/L (136-145)
--- NOTE | 2021-02-05 19:16 | EDS_ITS ---
HPI History of Present Illness Chief Complaint: Chest Pain Informant: patient Narrative Narrative: Patient is a 75-year-old male with a past medical history of diabetes, hypertension, hyperlipidemia who presents to the emergency department for right-sided chest pressure. He currently rates this as a 1 out of 10. He supposed to have a heart catheterization on Sunday. He was told to come to get checked out if he develops any worsening symptoms. He has been having exertional shortness of breath which prompted an echocardiogram and EKG. This is why they are doing the heart catheterization. He denies any shortness of breath past his baseline. No heart palpitations. He does take a baby aspirin daily which she took today. He denies any leg swelling or calf pain. No nausea or diaphoresis. Denies any recent illness. No radiation of the pain into his back or abdomen. Patient has a former smoking history. No history of heart attack, stroke or DVT/PE. He is not on blood thinning medications. [facility] Medical History (Updated 02/05/21 @ 23:[address] Ryland Freire DO) Diabetes Enlarged prostate HTN (hypertension) hypercholesterolemia Home Medications metformin 1,000 mg PO BIDCM 04/21/15 [History Last Taken Unknown] simvastatin 40 mg PO QHS 04/21/15 [History Last Taken Unknown] tamsulosin 0.4 mg PO DAILY #30 cap 02/07/19 [Rx Last Taken Unknown] Finasteride 5 mg PO DAILY 11/18/19 [History Last Taken Unknown] carvedilol [Coreg] 12.5 mg PO BID 02/05/21 [History Last Taken Unknown] colestipol 1 g PO DAILY 02/05/21 [History Last Taken Unknown] insulin glargine [Lantus Solostar U-100 Insulin] 66 unit SUBCUT QPM 02/05/21 [History Last Taken Unknown] insulin lispro [Humalog KwikPen Insulin] 4 unit SUBCUT TID 02/05/21 [History Last Taken Unknown] losartan 12.5 mg PO DAILY 02/05/21 [History Last Taken Unknown] Allergy/AdvReac Type Severity Reaction Status Date / Time amoxicillin Allergy Rash Verified 02/05/21 18:13 Family History (Updated 02/05/21 @ 21:[address] Mariza Stevenson MD) Sister Colon cancer Brother Diabetes Mother Diabetes Heart disease Cancer Father Heart disease Cancer Diabetes Surgical History H/O hemorrhoidectomy h/o wrist surgery Hx of cholecystectomy Hx of umbilical hernia repair Status post surgical manipulation of ankle joint Social History (Updated 02/05/21 @ 21:[address] Mariza Stevenson MD) household members: spouse Smoking Status: Former smoker alcohol intake: never substance use type: does not use ROS ROS ED Constitutional Constitutional ED: Denies chills or fever(s) Eyes Eyes: Denies change in vision ENT ENT ED: Denies epistaxis or rhinorrhea Cardiovascular Cardiovascular: Reports chest pain; Denies palpitations Respiratory/Chest Respiratory/Chest: Reports dyspnea on exertion; Denies cough or dyspnea Gastrointestinal Gastrointestinal: Denies abdominal pain, diarrhea, nausea or vomiting Genitourinary Genitourinary ED: Denies dysuria, hematuria or urinary frequency Musculoskeletal Musculoskeletal: Denies back pain or neck pain Integumentary Denies rash Neurologic Neurologic: Denies dizziness, headache(s) or weakness EXAM Physical Exam Const Vital Signs: 02/05/21 18:13 02/05/21 18:37 02/05/21 19:00 Temperature 96.5 F L Temperature Source Temporal Pulse Rate 89 99 Respiratory Rate 22 H 20 H Respiratory Effort Short of Breath Respiratory Pattern Normal Blood Pressure 153/100 H 185/79 H Blood Pressure Mean 117 114 Blood Pressure Source Blood Pressure Position Blood Pressure Location Pulse Ox 95 96 94 Oxygen Delivery Method Room Air Room Air Room Air 02/05/21 20:00 02/05/21 21:00 02/05/21 21:03 Temperature Temperature Source Pulse Rate 110 H 99 114 H Respiratory Rate 20 H 23 H 22 H Respiratory Effort Respiratory Pattern Blood Pressure 153/103 H 155/73 H 155/73 H Blood Pressure Mean 119 100 100 Blood Pressure Source Monitor Blood Pressure Position Semi-Fowlers Blood Pressure Location Right Arm Pulse Ox 95 94 94 Oxygen Delivery Method Room Air Room Air Positive well nourished and well developed General Appearance ED: well developed and NAD HEENT Reports normocephalic, head/scalp atraumatic and moist mucous membranes Eyes PERRL and EOMs intact bilaterally Neck supple Chest Wall inspection of chest normal Resp normal respiratory effort and clear to auscultation bilaterally Auscultation: Negative for rales, rhonchi or wheezes Cardio regular rate and no murmurs Rhythm: abnormal rhythm GI normal to inspection, nondistended, normoactive bowel sounds and non-tender Palpation: soft; Negative for guarding or rebound tenderness present Extremity normal to inspection General Extremety ED: Negative for edema or tenderness General Extremity: Negative for edema Neuro oriented x3, CN's II-XII intact bilaterally and no sensory deficits noted Sensorium / Orientation: alert Motor Exam: strength 5/5 throughout Psych mental status grossly normal Skin no rashes or lesions noted MDM MDM MDM Narrative Medical decision making narrative: Patient presents to the ED for chest discomfort. He supposed have a heart cath this coming Sunday. Upon arrival to the emergency department he is in an irregular heart rhythm. He denies any history of A. fib or a flutter in the past. He is not anticoagulated. He states that his pressure is currently minimal is a 1 out of 10. Basic lab work being obtained. He is supposed to go to [facility] for his further evaluation. Patient has remained in A. fib. His rates have gotten into the 120s and 130s. He is given a IV dose of Cardizem and started on an infusion for this. His glu cose is elevated but otherwise no significant acute abnormality. His troponin is negative. 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 Ramirez. He feels that the patient can be admitted to [place] for further evaluation and management and does not need to come to [facility] as patient has a preference to go there. I did discuss with the patient and his daughter and they are okay with being admitted here. He otherwise has been stable throughout ED stay. Lab Data Labs: Laboratory Results - last 24 hr 02/05/21 02/05/21 02/05/21 18:25 18:25 18:25 WBC 9.2 RBC 5.48 Hgb 15.6 Hct 46.0 MCV 83.9 MCH 28.5 MCHC 33.9 RDW Std Deviation 36.1 RDW Coeff of Lucia 12.0 Plt Count 228 MPV 11.4 Immature Gran % (Auto) 0.300 Neut % (Auto) 61.2 Lymph % (Auto) 23.3 Tillman % (Auto) 11.4 H Eos % (Auto) 3.3 Baso % (Auto) 0.5 Absolute Neuts (auto) 5.7 Absolute Lymphs (auto) 2.15 Nucleated RBC % 0 Sodium 131 L Potassium 4.1 Chloride 99 Carbon Dioxide 23.0 Anion Gap 9 BUN 25 H Creatinine 1.09 Estim Creat Clear Calc 63.28 Est GFR (MDRD) Af Amer 84 Est GFR (MDRD) Non-Af 70 BUN/Creatinine Ratio 22.9 H Glucose 272 H Calcium 9.4 Magnesium 1.9 Troponin I < 0.015 Radiography Chest X-Ray - ED: Read by ED Physician (Single view portable x-ray. Clear lung henderson. No large effusion. Normal mediastinum. Agree with radiologist interpretation.) Diagnostic Testing: Radiology Impression Chest X-Ray 02/05/21 18:45 IMPRESSION: Nonacute portable x-ray examination of the chest. Electronically Signed: Lázaro Koehler MD (Brooks) at 18:58 EDT , Service support , EKG Initial EKG: Attestation: I personally reviewed and interpreted this EKG as follows: (Rate of 104 bpm and an irregularly irregular rhythm. QRS prolonged with right bundle branch block.. Left axis deviation. No significant ST elevations or depressions.) Discharge Plan Dx/Rx/DC Orders Clinical Impression: Atrial fibrillation with RVR, Chest pain Disposition Disposition: Acute Care Hospital [facility] Discharge Date/Time: 02/05/21 22:26
[2021-02-05] MEDS: dilTIAZem 25 MG/5 ML Vial 10 MG IV BOLUS (21:00)
--- NOTE | 2021-02-05 21:06 | HP.PCM.HOS_ITS ---
HPI - General General Date of Admission: 02/05/21 Chief Complaint: Chest pain, dyspnea, irregular beat sensation. HPI Narrative The patient is a 75 y/o M w/ PMHx: Diabetes mellitus type II, HTN, HLD, Obesity, BPH who presents to the [facility] ED on 02/05/21 with onset chest pain ~ 1 hour prior to ED arrival noted to be midsternal, aching and pressure like in sensation with history of onset recently exertional dyspnea concurrently with outside evaluation including EKG and ECHO with planned 02/07/21 cardiac catheterization at [facility] per Dr. Cardenas.' Patient noted chest pain /10 in severity upon ED arrival. He denied any nausea, emesis, diaphoresis with his chest pressure onset. He did note mildly worsened sensation of dyspnea and also felt as though his heart was beating irregularly. He does report being told that his rhythm was irregular at his recent outside cardiology evaluation but unclear if atrial fib/flutter. Work-up in the ED included T 96.5, heart rate 89, BP 153/100, respiratory rate 22, 95% on room air, CBC with WC 9.2, hemoglobin 15.6, platelet 228 without marked shift, BMP with sodium 131, BUN/creatinine 25/1.06, glucose 272, troponin less than 0.015, chest x-rays no acute cardiopulmonary findings, EKG with AFlutter w/ RBBB with no acute evidence of ischemia with no prior history. In the ED initiated on cardizem drip. ED discussed case with [facility] Hand Almond Blancher who agreed for admission to [facility] and catheterization. [facility] Medical History (Updated 02/05/21 @ 21:[address] Mariza Stevenson MD) Diabetes Enlarged prostate HTN (hypertension) hypercholesterolemia Home Medications metformin 1,000 mg PO BIDCM 04/21/15 [History Last Taken Unknown] simvastatin 40 mg PO QHS 04/21/15 [History Last Taken Unknown] tamsulosin 0.4 mg PO DAILY #30 cap 02/07/19 [Rx Last Taken Unknown] Finasteride 5 mg PO DAILY 11/18/19 [History Last Taken Unknown] carvedilol [Coreg] 12.5 mg PO BID 02/05/21 [History Last Taken Unknown] colestipol 1 g PO DAILY 02/05/21 [History Last Taken Unknown] insulin glargine [Lantus Solostar U-100 Insulin] 66 unit SUBCUT QPM 02/05/21 [History Last Taken Unknown] insulin lispro [Humalog KwikPen Insulin] 4 unit SUBCUT TID 02/05/21 [History Last Taken Unknown] losartan 12.5 mg PO DAILY 02/05/21 [History Last Taken Unknown] Allergy/AdvReac Type Severity Reaction Status Date / Time amoxicillin Allergy Rash Verified 02/05/21 18:13 Family History (Updated 02/05/21 @ 21:[address] Mariza Stevenson MD) Sister Colon cancer Brother Diabetes Mother Diabetes Heart disease Cancer Father Heart disease Cancer Diabetes Surgical History (Updated 02/05/21 @ 21:[address] Mariza Stevenson MD) H/O hemorrhoidectomy h/o wrist surgery Hx of cholecystectomy Hx of umbilical hernia repair Status post surgical manipulation of ankle joint Social History (Updated 02/05/21 @ 21:[address] Mariza Stevenson MD) household members: spouse Smoking Status: Former smoker alcohol intake: never substance use type: does not use ROS ROS Narrative Admission Review of Systems: CONSTITUTIONAL: No weight loss, fever, chills, + weakness or fatigue. HEENT: Eyes: No visual loss, blurred vision, double vision or yellow sclerae. Ears, Nose, Throat: No hearing loss, sneezing, congestion, runny nose or sore throat. SKIN: No rash or itching, lesions, wounds. CARDIOVASCULAR: + chest pain, chest pressure or chest discomfort, palpitations, No edema, orthopnea, syncopal events. RESPIRATORY: + shortness of breath, No cough or sputum, wheezing, hemoptysis. GASTROINTESTINAL: No anorexia, nausea, vomiting or diarrhea, abdominal pain, melena, BRBPR. GENITOURINARY: + Chronic frequency, No urgency or retention. NEUROLOGICAL: No headache, dizziness, syncope, paralysis, ataxia, numbness or tingling in the extremities, focal weakness, change in bowel or bladder control, seizure. MUSCULOSKELETAL: + muscle, back pain, joint pain or stiffness. HEMATOLOGIC: No anemia, bleeding or bruising. LYMPHATICS: No enlarged nodes. No history of splenectomy. PSYCHIATRIC: No history of depression or anxiety. ENDOCRINOLOGIC: No reports of sweating, cold or heat intolerance. No polyuria or polydipsia. ALLERGIES: No history of asthma, hives, eczema or rhinitis. Vital Signs Vital Signs Vital Signs: 02/05/21 18:13 02/05/21 18:37 02/05/21 19:00 Temperature 96.5 F L Temperature Source Temporal Pulse Rate 89 99 Respiratory Rate 22 H 20 H Respiratory Effort Short of Breath Respiratory Pattern Normal Blood Pressure 153/100 H 185/79 H Blood Pressure Mean 117 114 Blood Pressure Source Blood Pressure Position Blood Pressure Location Pulse Ox 95 96 94 Oxygen Delivery Method Room Air Room Air Room Air 02/05/21 20:00 02/05/21 21:03 Temperature Temperature Source Pulse Rate 110 H 114 H Respiratory Rate 20 H 22 H Respiratory Effort Respiratory Pattern Blood Pressure 153/103 H 155/73 H Blood Pressure Mean 119 100 Blood Pressure Source Monitor Blood Pressure Position Semi-Fowlers Blood Pressure Location Right Arm Pulse Ox 95 94 Oxygen Delivery Method Room Air Physical Exam Narrative Physical Examination: General: awake, alert, oriented x 3 and cooperative, seated upright in the ED bed in no apparent distress, notes chest discomfort is subsiding. Skin: normal color, turgor, no icterus, cyanosis. HEENT: AT/NC, EOMI, PERRLA, mildly dry MM, no carotid bruits or JVD noted; however, thickened neck makes exam difficult. Lungs: CTA bilaterally, moderate effort, mild decrease BL bases, no rales, ronchi or wheezing. Heart: Irregular irregular; no gallop, rub audible. Abdomen: soft, obese, NTTP, ND, mildly hyperactive BS, no obvious HSM; however, habitus makes examination difficult. Extremities: no cyanosis, no clubbing, mild ankle nonpitting edema. Neurological: patient awake, alert, oriented as noted, cognitive function intact; pupils equally reactive to light and accommodation, cranial nerves II-XI I grossly normal, moving all 4 extremities, no focal deficits, strength mildly global decrease secondary to acute presentation. Psychiatric: affect appears normal, no acute evidence of depressive or anxiety feelings. Lab / Micro Data Result Diagrams: 02/05/21 18:25 02/05/21 18:25 Labs: Laboratory Results - last 24 hr 02/05/21 02/05/21 18:25 18:25 WBC 9.2 RBC 5.48 Hgb 15.6 Hct 46.0 MCV 83.9 MCH 28.5 MCHC 33.9 RDW Std Deviation 36.1 RDW Coeff of Lucia 12.0 Plt Count 228 MPV 11.4 Immature Gran % (Auto) 0.300 Neut % (Auto) 61.2 Lymph % (Auto) 23.3 Knott % (Auto) 11.4 H Eos % (Auto) 3.3 Baso % (Auto) 0.5 Absolute Neuts (auto) 5.7 Absolute Lymphs (auto) 2.15 Nucleated RBC % 0 Sodium 131 L Potassium 4.1 Chloride 99 Carbon Dioxide 23.0 Anion Gap 9 BUN 25 H Creatinine 1.09 Estim Creat Clear Calc 63.28 Est GFR (MDRD) Af Amer 84 Est GFR (MDRD) Non-Af 70 BUN/Creatinine Ratio 22.9 H Glucose 272 H Calcium 9.4 Troponin I < 0.015 Radiology Impression Chest X-Ray 02/05/21 18:45 IMPRESSION: Nonacute portable x-ray examination of the chest. Electronically Signed: Lázaro Koehler MD (Brooks) at 18:58 EDT , Service support , Assessment & Plan Assessment/Plan (1) Chest pain: QUALIFIERS: Chest pain type: unspecified Qualified Code(s): R07.9 - Chest pain, unspecified PLAN: The patient is a 75 y/o M w/ PMHx: Diabetes mellitus type II, HTN, HLD, Obesity, BPH who presents to the [facility] ED on 02/05/21 with onset chest pain ~ 1 hour prior to ED arrival noted to be midsternal, aching and pressure like in sensation with history of onset recently exertional dyspnea concurrently with outside evaluation including EKG and ECHO with planned 02/07/21 cardiac catheterization at [facility] per Dr. Cardenas.' 1 chest Pain: EKG in ED new onset atrial fibrillation eventually with RVR as noted, CXR w/ no acute cardiopulmonary findings, initial trop less than 0.015. Will admit to PCU, place on a monitored bed to assure no acute myocardial infarction with serial cardiac enzymes and EKGs. FLP in AM. Mag pending. Pending Cardiology assessment. NPO after midnight for cardiac catheterization Sunday. ASA, NG, morphine. 2. Paroxsymal atrial flutter: EKG in ED w/ atrial flutter with RVR. Increased rate in the ED eventually placed on cardizem drip which will be maintained. Will maintain on telemetry, obtain cardiac enzyme serial set, obtain magnesium level, ECHO reportedly recent obtained thus will attempt to obtain records, obtain TSH level. Maintain on therapeutic lovenox pending Cardiology evaluation, will need hold prior to OR sunday. 3. Diabetes mellitus type II: Hold oral home regimen, continue home insulin regimen, ADA diet, accu checks w/ ISS. 4. Hypertension: Continue home regimen including Coreg, losartan with hold parameters and alterations as needed pending further BP and rate/rhythm assessments, PRN hydralazine. 5. Hyperlipidemia: Continue home statin regimen. AM FLP. 6. Obesity: Weight loss and lifestyle changes encouraged. 7. BPH: We will continue patient home finasteride and Flomax regimen. 8. DVT prophylaxis: SCDs, Lovenox. 9. CODE status: Patient CORINE is his who is present and living will is currently in place. Discussed CODE status at length including difference between FULL code, DNR-CCA and DNR-CC status. Following discussions about the differences in these status, requested full CODE STATUS. Advanced Care Planning Face to Face Time: 16 minutes. Visit Charges Inpatient E&M: 06939 Init Hosp L3 Procedures Hospitalists Procedures: 45513 Advncd Care Plan 30 Min
[2021-02-05 22:06] LABS: Magnesium 1.9 mg/dL (1.6-2.6)
[2021-02-05] MEDS: Insulin Lispro 100 UNIT/ML INSULN.PEN SC ×2 (23:04→23:05)
[2021-02-05 23:10] LABS: Bedside Glucose 207 mg/dL (70-110)
[2021-02-06] VITALS (26 sets, daily range): BP systolic 112–183; BP diastolic 63–98; PULSE 72–155; RESP 16–24; TEMP 36.1–36.8; O2SAT 94–98
[2021-02-06] MEDS: Enoxaparin 150 MG/ML Syringe 130 MG SC ×3 (00:55→21:26)
[2021-02-06 04:13] LABS: Absolute Lymphocyte Count 2.66 X10^3/uL (0.83-4.51); Absolute Neutrophil Count 5.7 X10^3/uL (2.0-7.7); Basophil# 0.06 X10^3/uL; Basophil% 0.6 % (0-1); Eosinophil# 0.34 X10^3/uL; Eosinophils% 3.4 % (0-5); Hematocrit 47.1 % (40-54); Hemoglobin 15.9 g/dL (13.0-16.5); Lymphocyte # 2.66 X10^3/ul (0.83-4.51); Lymphocyte % 26.9 % (19-41); Mean Corp Hgb Conc 33.8 g/dL (32-36); Mean Corpuscular Hgb 28.5 pg (27.0-32.0); Mean Corpuscular Volume 84.4 fL (80-94); Mean Platelet Vol. 11.1 fl (6.2-12.0); Monocyte# 1.09 X10^3/uL; NRBC Flagged by Analyzer 0 % (0-5); Neutrophil % 57.8 % (47-70); Platelet Count 219 K/mm3 (150-450); RBC Distribution Width CV 12.2 % (11.6-14.6); RBC Distribution Width SD 37.3 fl (35.1-43.9); Red Blood Count 5.58 M/mm3 (4.6-6.2); White Blood Count 9.9 K/mm3 (4.4-11.0)
[2021-02-06 04:22] LABS: Prothrombin Time (Protime)PT. 12.3 SECONDS (11.7-14.9)
[2021-02-06 04:23] LABS: Partial Thromboplast Time 24.1 Seconds (24.1-36.2)
[2021-02-06 04:41] LABS: ALB/GLOB Ratio 0.9 RATIO (0.9-2.4); AST(SGOT) 19 U/L (15-37); Alanine Aminotransfer ALT/SGPT 29 U/L (16-61); Albumin, Serum 3.5 g/dL (3.2-5.0); Alkaline Phosphatase 88 U/L (45-117); Anion Gap 8 (5-15); BUN 21 mg/dL (7-18); BUN/Creat Ratio 21.5 RATIO (10-20); Calcium,Total 8.6 mg/dL (8.5-10.1); Chloride 100 mmol/L (98-107); Cholesterol 136 mg/dL (200); Creatinine, Serum 0.98 mg/dL (0.70-1.30); EST Glomerular Filtration Rate 79 mL/min (>60); Est Glom Filt Rate - Afr Amer 96 mL/min (>60); Estimated Creatinine Clearance 70.39 ml/min; Globulin 3.8 g/dL (2.2-4.2); Glucose 235 mg/dL (74-106); High Density Lipoprotein 42 mg/dL; Potassium 3.9 mmol/L (3.5-5.1); Protein, Total 7.3 g/dL (6.4-8.2); Sodium Level 133 mmol/L (136-145); Thyroid Stim Hormone (TSH) 3.15 uIU/mL (0.358-3.74); Triglycerides 187 mg/dL; Very Low Density Lipoprotein 37 mg/dL (5-40)
[2021-02-06 07:45] LABS: Bedside Glucose 195 mg/dL (70-110)
[2021-02-06] MEDS: Insulin Lispro 100 UNIT/ML INSULN.PEN SC ×6 (08:27→17:00)
[2021-02-06] MEDS: Aspirin 81 MG TAB.CHEW PO (09:42)
[2021-02-06] MEDS: Tamsulosin HCl 0.4 MG Capsule PO (09:44)
[2021-02-06] MEDS: Losartan Potassium 25 MG Tablet 12.5 MG PO (09:44)
[2021-02-06] MEDS: Carvedilol 12.5 MG Tablet PO ×2 (09:44→21:28)
[2021-02-06] MEDS: Famotidine 20 MG Tablet PO ×2 (09:45→21:28)
[2021-02-06] MEDS: Finasteride 5 MG Tablet PO (09:46)
[2021-02-06] MEDS: dilTIAZem 60 MG Tablet PO ×2 (09:58→16:59)
--- NOTE | 2021-02-06 11:39 | PN.HOSP_ITS ---
Documented by User: Deirdre Amaya NP, EMBEDDED SOFTWARE MANAGER-C 02/06/21 11:47 Subjective Subjective Patient seen and examined. Denies chest pain, palpitations, shortness of breath. Currently sinus rhythm. Objective Data Objective Data Vital Signs: Vital Signs Temp Pulse Resp BP Pulse Ox 98.3 F 85 20 H 161/77 H 95 02/06/21 07:52 02/06/21 07:52 02/06/21 07:52 02/06/21 07:52 02/06/21 11:39 Oxygen Delivery Method Room Air Weight: 289 lb 3.944 oz Body Mass Index (BMI) 40.0 Intake & Output: Intake and Output for Last 24 Hours 02/04/21 02/05/21 02/06/21 23:59 23:59 23:59 Intake Total 12.92 / 517.92 555.0 / 555.0 Balance 12.92 / 517.92 555.0 / 555.0 Lab / Micro Data Result Diagrams: 02/06/21 04:00 02/06/21 04:00 Labs: Laboratory Results - last 24 hr 02/05/21 02/05/21 02/05/21 18:25 18:25 18:25 WBC 9.2 RBC 5.48 Hgb 15.6 Hct 46.0 MCV 83.9 MCH 28.5 MCHC 33.9 RDW Std Deviation 36.1 RDW Coeff of Lucia 12.0 Plt Count 228 MPV 11.4 Immature Gran % (Auto) 0.300 Neut % (Auto) 61.2 Lymph % (Auto) 23.3 Jenkins % (Auto) 11.4 H Eos % (Auto) 3.3 Baso % (Auto) 0.5 Absolute Neuts (auto) 5.7 Absolute Lymphs (auto) 2.15 Nucleated RBC % 0 PT INR APTT Sodium 131 L Potassium 4.1 Chloride 99 Carbon Dioxide 23.0 Anion Gap 9 BUN 25 H Creatinine 1.09 Estim Creat Clear Calc 63.28 Est GFR (MDRD) Af Amer 84 Est GFR (MDRD) Non-Af 70 BUN/Creatinine Ratio 22.9 H Glucose 272 H Calcium 9.4 Magnesium 1.9 Total Bilirubin AST ALT Alkaline Phosphatase Troponin I < 0.015 Total Protein Albumin Globulin Albumin/Globulin Ratio Triglycerides Cholesterol LDL Cholesterol VLDL Cholesterol HDL Cholesterol TSH POC Glucose 02/05/21 02/05/21 02/06/21 22:58 23:10 04:00 WBC 9.9 RBC 5.58 Hgb 15.9 Hct 47.1 MCV 84.4 MCH 28.5 MCHC 33.8 RDW Std Deviation 37.3 RDW Coeff of Lucia 12.2 Plt Count 219 MPV 11.1 Immature Gran % (Auto) 0.300 Neut % (Auto) 57.8 Lymph % (Auto) 26.9 Jenkins % (Auto) 11.0 H Eos % (Auto) 3.4 Baso % (Auto) 0.6 Absolute Neuts (auto) 5.7 Absolute Lymphs (auto) 2.66 Nucleated RBC % 0 PT INR APTT Sodium Potassium Chloride Carbon Dioxide Anion Gap BUN Creatinine Estim Creat Clear Calc Est GFR (MDRD) Af Amer Est GFR (MDRD) Non-Af BUN/Creatinine Ratio Glucose Calcium Magnesium Total Bilirubin AST ALT Alkaline Phosphatase Troponin I < 0.015 Total Protein Albumin Globulin Albumin/Globulin Ratio Triglycerides Cholesterol LDL Cholesterol VLDL Cholesterol HDL Cholesterol TSH POC Glucose 207 H 02/06/21 02/06/21 02/06/21 04:00 04:00 04:00 WBC RBC Hgb Hct MCV MCH MCHC RDW Std Deviation RDW Coeff of Lucia Plt Count MPV Immature Gran % (Auto) Neut % (Auto) Lymph % (Auto) Jenkins % (Auto) Eos % (Auto) Baso % (Auto) Absolute Neuts (auto) Absolute Lymphs (auto) Nucleated RBC % PT 12.3 INR 1.0 APTT 24.1 Sodium 133 L Potassium 3.9 Chloride 100 Carbon Dioxide 25.0 Anion Gap 8 BUN 21 H Creatinine 0.98 Estim Creat Clear Calc 70.39 Est GFR (MDRD) Af Amer 96 Est GFR (MDRD) Non-Af 79 BUN/Creatinine Ratio 21.5 H Glucose 235 H Calcium 8.6 Magnesium Total Bilirubin 0.40 AST 19 ALT 29 Alkaline Phosphatase 88 Troponin I < 0.015 Total Protein 7.3 Albumin 3.5 Globulin 3.8 Albumin/Globulin Ratio 0.9 Triglycerides 187 Cholesterol 136 LDL Cholesterol 57 VLDL Cholesterol 37 HDL Cholesterol 42 TSH 3.15 POC Glucose 02/06/21 07:39 WBC RBC Hgb Hct MCV MCH MCHC RDW Std Deviation RDW Coeff of Lucia Plt Count MPV Immature Gran % (Auto) Neut % (Auto) Lymph % (Auto) Jenkins % (Auto) Eos % (Auto) Baso % (Auto) Absolute Neuts (auto) Absolute Lymphs (auto) Nucleated RBC % PT INR APTT Sodium Potassium Chloride Carbon Dioxide Anion Gap BUN Creatinine Estim Creat Clear Calc Est GFR (MDRD) Af Amer Est GFR (MDRD) Non-Af BUN/Creatinine Ratio Glucose Calcium Magnesium Total Bilirubin AST ALT Alkaline Phosphatase Troponin I Total Protein Albumin Globulin Albumin/Globulin Ratio Triglycerides Cholesterol LDL Cholesterol VLDL Cholesterol HDL Cholesterol TSH POC Glucose 195 H Radiography Diagnostic Testing: Radiology Impression Chest X-Ray 02/05/21 18:45 IMPRESSION: Nonacute portable x-ray examination of the chest. Electronically Signed: Lázaro Koehler MD (Brooks) at 18:58 EDT , Service support , Physical Exam Const alert, oriented x3 and no apparent distress Orientation / Consciousness: awake, oriented to person, oriented to place and oriented to time HEENT normocephalic and moist oral mucous membranes Eyes PERRL, EOMs intact bilaterally and conjunctivae normal Neck no lymphadenopathy Resp normal respiratory effort and clear to auscultation bilaterally Cardio regular rate, regular rhythm and no murmurs Peripheral Pulses: pulses 2+ throughout GI normal to inspection, nondistended, normoactive bowel sounds, non-tender and non-distended Extremity normal to inspection Skin no rashes or lesions noted Lesions: no lesions Rashes: no rashes Trauma: no lacerations or abrasions Neuro CN's II-XII intact bilaterally, no focal motor deficits, no sensory deficits noted and deep tendon reflexes 2+ bilaterally Psych mental status grossly normal and affect normal Assessment & Plan Assessment/Plan (1) Atrial fibrillation with RVR: (2) Chest pain: QUALIFIERS: Chest pain type: unspecified Qualified Code(s): R07.9 - Chest pain, unspecified PLAN: 1. New onset atrial fibrillation/atrial flutter-placed on Cardizem drip on admission. Patient currently sinus rhythm. Transition to oral Cardizem. Echocardiogram ordered. 2. Chest pain-previously planned for cardiac cath at [facility] 02/07/2021 for ongoing exertional dyspnea. Cardiology consulted. Troponin negative. Continue aspirin, statin, carvedilol. 3. Type 2 diabetes [id number] with sliding scale insulin. Continue home insulin regimen. 4. Hypertension-continue Coreg, losartan. 5. Hyperlipidemia-continue statin. 6. Obesity-encouraged diet lifestyle modifications. 7. BPH-on finasteride, Flomax. DVT prophylaxis-Lovenox This patient was seen by Deirdre Amaya NP-C under the supervision of Dr. Duncan. Documented by User: Dr. Jase Duncan, DO 02/06/21 12:36 Objective Data Lab / Micro Data Result Diagrams: 02/06/21 04:00 02/06/21 04:00 Addendum Addendum: Patient was seen and examined independently of Deirdre Amaya today, he has been at times in sinus rhythm today but currently he is in atrial fib with a well-controlled rate. I transitioned him over to oral Cardizem, he remains on a beta-salvador at this time also. Patient denies any shortness of breath or any chest discomfort. On examination he appeared in good health and spirits. Vital signs as documented. Skin warm and dry and without overt rashes. Neck without JVD, neck was supple, trachea midline, thyroid was normal. Lungs clear bilaterally, normal air movement was noted. Heart exam notable for irregular rhythm, normal sounds and absence of murmurs, rubs or gallops. Abdomen unremarkable and without evidence of organomegaly, masses, or abdominal aortic enlargement. Bowel sounds are present, abdomen is not distended. Extremities nonedematous, no cyanosis was noted, no clubbing was noted. Neuro: Cranial nerves II through XII are rick ssly intact, no focal motor deficits were noted, sensation to light touch and pinprick intact, motor exam 5/5 throughout. Psych: Patient is alert and oriented x3, he does not appear anxious or depressed, he does not appear agitated. Patient will be seen by cardiology today in consultation, I have reviewed Deirdre Amaya's progress note including her medical assessment and plan of care and endorse it. Visit Charges Inpatient E&M: 09554 Subs Hosp L2
--- NOTE | 2021-02-06 13:00 | NURSING ---
pt's lunch tray delivered to pt while this RN in [place] w/another pt. He has eaten nearly all of his tray. disc w/J Jose Luis ARRIAZA. orders recd
[2021-02-06 14:21] LABS: Bedside Glucose 335 mg/dL (70-110)
--- NOTE | 2021-02-06 14:51 | CON.PCM.CA_ITS ---
Assessment & Plan Assessment/Plan (1) Atrial fibrillation with RVR: PLAN: Continue beta-salvador. Patient will benefit from anticoagulation. He also needs coronary angiography. We can decide on anticoagulation after coronary angiography. (2) Chest pain: QUALIFIERS: Chest pain type: unspecified Qualified Code(s): R07.9 - Chest pain, unspecified PLAN: As an outpatient patient was scheduled for coronary angiography. Since patient presented with chest pain we will proceed with coronary angiography tomorrow. Risks and benefits discussed with the patient in detail. HPI Consult Data Date of Consult: 02/06/21 HPI Narrative Reason for Consultation: Chest pain, A. fib HPI Narrative: INGRIS BALBUENA, is a 75 M who presents with pressure-like retrosternal chest discomfort that started when he was working in the kitchen. He has been having the symptoms on and off over the last 1 month. He was scheduled to have coronary angiography at [facility] tomorrow. When he presented to the emergency room he was in A. fib with a heart rate of around 120 bpm. His heart rate is now controlled. Review of systems: All systems reviewed. All else is negative except that in the [facility] Medical History (Updated 02/05/21 @ 23:[address] Ryland Freire, DO) Diabetes Enlarged prostate HTN (hypertension) hypercholesterolemia Home Medications metformin 1,000 mg PO BIDCM 04/21/15 [History Last Taken Unknown] simvastatin 40 mg PO QHS 04/21/15 [History Last Taken Unknown] tamsulosin 0.4 mg PO DAILY #30 cap 02/07/19 [Rx Last Taken Unknown] Finasteride 5 mg PO DAILY 11/18/19 [History Last Taken Unknown] carvedilol [Coreg] 12.5 mg PO BID 02/05/21 [History Last Taken Unknown] colestipol 1 g PO DAILY 02/05/21 [History Last Taken Unknown] insulin glargine [Lantus Solostar U-100 Insulin] 66 unit SUBCUT QPM 02/05/21 [History Last Taken Unknown] insulin lispro [Humalog KwikPen Insulin] 4 unit SUBCUT TID 02/05/21 [History Last Taken Unknown] losartan 12.5 mg PO DAILY 02/05/21 [History Last Taken Unknown] Allergy/AdvReac Type Severity Reaction Status Date / Time amoxicillin Allergy Rash Verified 02/05/21 18:13 Family History (Updated 02/05/21 @ 21:[address] Mariza Stevenson MD) Sister Colon cancer Brother Diabetes Mother Diabetes Heart disease Cancer Father Heart disease Cancer Diabetes Surgical History H/O hemorrhoidectomy h/o wrist surgery Hx of cholecystectomy Hx of umbilical hernia repair Status post surgical manipulation of ankle joint Social History (Updated 02/05/21 @ 21:[address] Mariza Stevenson MD) household members: spouse Smoking Status: Former smoker alcohol intake: never substance use type: does not use Physical Exam Const alert and oriented x3 Orientation / Consciousness: awake HEENT normocephalic Eyes no scleral icterus Neck supple Chest inspection of chest normal Resp normal respiratory effort Cardio Cardio Narrative: Irregular Extremity no pedal edema Skin no rashes or lesions noted Neuro oriented x3 Psych mental status grossly normal Charges/Coding Visit Charges Inpatient E&M: 25292 Init Hosp L3
--- NOTE | 2021-02-06 14:53 | NURSING ---
report called to ULTRASOUND MANAGERNILDA Peacock. to PCU 103 per chair. LACE MENDER in attendance
[2021-02-06 16:40] LABS: Bedside Glucose 250 mg/dL (70-110)
[2021-02-06] MEDS: 0.9% Saline Lock 10 ML Syringe IV (21:28)
[2021-02-06] MEDS: Atorvastatin Calcium 20 MG Tablet PO (21:28)
[2021-02-06 21:40] LABS: Bedside Glucose 250 mg/dL (70-110)
[2021-02-07] VITALS (14 sets, daily range): BP systolic 112–144; BP diastolic 67–100; PULSE 66–88; RESP 16–18; TEMP 35.6–36.7; O2SAT 93–97
[2021-02-07] MEDS: dilTIAZem 60 MG Tablet PO ×2 (00:16→05:34)
[2021-02-07] MEDS: Nystatin Powder 15gm Bottle 1 APPLIC TOPICAL ×2 (00:16→05:34)
--- NOTE | 2021-02-07 05:00 | EKG12_ITS ---
Test Reason : AM EKG Blood Pressure : / mmHG Vent. Rate : 085 BPM Atrial Rate : 085 BPM P-R Int : 170 ms QRS Dur : 142 ms QT Int : 418 ms P-R-T Axes : 030 -86 008 degrees QTc Int : 497 ms Normal sinus rhythm Right bundle branch block Left anterior fascicular block Bifascicular block Abnormal ECG Confirmed by ALEXANDREA SAMUEL, REGAN ([id number]), book or script editor ENID CLINTON ([id number]) on 02/09/2021 9:48:19 AM Referred By: SCAR Confirmed By:REGAN LECHUGA MD
[2021-02-07 05:33] LABS: Absolute Lymphocyte Count 2.93 X10^3/uL (0.83-4.51); Absolute Neutrophil Count 5.5 X10^3/uL (2.0-7.7); Basophil# 0.07 X10^3/uL; Basophil% 0.7 % (0-1); Hematocrit 49.5 % (40-54); Hemoglobin 16.7 g/dL (13.0-16.5); Lymphocyte # 2.93 X10^3/ul (0.83-4.51); Lymphocyte % 29.4 % (19-41); Mean Corp Hgb Conc 33.7 g/dL (32-36); Mean Corpuscular Hgb 28.5 pg (27.0-32.0); Mean Corpuscular Volume 84.5 fL (80-94); Mean Platelet Vol. 11.1 fl (6.2-12.0); Monocyte# 1.02 X10^3/uL; Monocyte% 10.2 % (0-10); NRBC Flagged by Analyzer 0 % (0-5); Neutrophil # 5.52 X10^3/uL (2.7-7.7); Neutrophil % 55.4 % (47-70); Platelet Count 242 K/mm3 (150-450); RBC Distribution Width CV 12.2 % (11.6-14.6); RBC Distribution Width SD 37.3 fl (35.1-43.9); Red Blood Count 5.86 M/mm3 (4.6-6.2)
[2021-02-07] MEDS: Aspirin 81 MG TAB.CHEW PO (05:34)
[2021-02-07] MEDS: Carvedilol 12.5 MG Tablet PO (05:34)
[2021-02-07] MEDS: Losartan Potassium 25 MG Tablet 12.5 MG PO (05:34)
[2021-02-07 05:43] LABS: Prothrombin Time (Protime)PT. 12.8 SECONDS (11.7-14.9)
[2021-02-07 05:48] LABS: Anion Gap 8 (5-15); BUN 16 mg/dL (7-18); BUN/Creat Ratio 15.2 RATIO (10-20); Chloride 101 mmol/L (98-107); Creatinine, Serum 1.05 mg/dL (0.70-1.30); EST Glomerular Filtration Rate 73 mL/min (>60); Est Glom Filt Rate - Afr Amer 88 mL/min (>60); Estimated Creatinine Clearance 65.69 ml/min; Glucose 186 mg/dL (74-106); Potassium 3.9 mmol/L (3.5-5.1); Sodium Level 135 mmol/L (136-145)
[2021-02-07 06:10] LABS: Bedside Glucose 215 mg/dL (70-110)
--- NOTE | 2021-02-07 08:14 | PN.CARD_ITS ---
Subjective Subjective Patient seen and evaluated. Underwent cardiac catheterization today. Objective Data Vital Signs: Vital Signs Temp Pulse Resp BP Pulse Ox 96.8 F L 86 18 144/79 H 95 02/07/21 05:31 02/07/21 05:31 02/07/21 05:31 02/07/21 05:31 02/07/21 07:32 Oxygen Delivery Method Room Air Weight: 286 lb 9.615 oz Body Mass Index (BMI) 40.0 Intake & Output: Intake and Output for Last 24 Hours 02/05/21 02/06/21 02/07/21 23:59 23:59 23:59 Intake Total 12.92 / 517.92 1520.0 / 1620.0 100 / 100 Balance 12.92 / 517.92 1520.0 / 1620.0 100 / 100 Lab / Micro Data Result Diagrams: 02/07/21 05:26 02/07/21 05:26 Labs: Laboratory Results - last 24 hr 02/06/21 02/06/21 02/06/21 14:09 16:38 21:25 WBC RBC Hgb Hct MCV MCH MCHC RDW Std Deviation RDW Coeff of Lucia Plt Count MPV Immature Gran % (Auto) Neut % (Auto) Lymph % (Auto) Colbert % (Auto) Eos % (Auto) Baso % (Auto) Absolute Neuts (auto) Absolute Lymphs (auto) Nucleated RBC % PT INR Sodium Potassium Chloride Carbon Dioxide Anion Gap BUN Creatinine Estim Creat Clear Calc Est GFR (MDRD) Af Amer Est GFR (MDRD) Non-Af BUN/Creatinine Ratio Glucose Calcium POC Glucose 335 H 250 H 250 H 02/07/21 02/07/21 02/07/21 05:26 05:26 05:26 WBC 10.0 RBC 5.86 Hgb 16.7 H Hct 49.5 MCV 84.5 MCH 28.5 MCHC 33.7 RDW Std Deviation 37.3 RDW Coeff of Lucia 12.2 Plt Count 242 MPV 11.1 Immature Gran % (Auto) 0.300 Neut % (Auto) 55.4 Lymph % (Auto) 29.4 Colbert % (Auto) 10.2 H Eos % (Auto) 4.0 Baso % (Auto) 0.7 Absolute Neuts (auto) 5.5 Absolute Lymphs (auto) 2.93 Nucleated RBC % 0 PT 12.8 INR 1.0 Sodium 135 L Potassium 3.9 Chloride 101 Carbon Dioxide 26.0 Anion Gap 8 BUN 16 Creatinine 1.05 Estim Creat Clear Calc 65.69 Est GFR (MDRD) Af Amer 88 Est GFR (MDRD) Non-Af 73 BUN/Creatinine Ratio 15.2 Glucose 186 H Calcium 9.0 POC Glucose 02/07/21 06:05 WBC RBC Hgb Hct MCV MCH MCHC RDW Std Deviation RDW Coeff of Lucia Plt Count MPV Immature Gran % (Auto) Neut % (Auto) Lymph % (Auto) Colbert % (Auto) Eos % (Auto) Baso % (Auto) Absolute Neuts (auto) Absolute Lymphs (auto) Nucleated RBC % PT INR Sodium Potassium Chloride Carbon Dioxide Anion Gap BUN Creatinine Estim Creat Clear Calc Est GFR (MDRD) Af Amer Est GFR (MDRD) Non-Af BUN/Creatinine Ratio Glucose Calcium POC Glucose 215 H Cardiology Labs/Tests 02/07/21 05:26: WBC 10.0, RBC 5.86, Hgb 16.7 H, Hct 49.5, MCV 84.5, MCH 28.5, MCHC 33.7, Plt Count 242, MPV 11.1, Immature Gran % (Auto) 0.300, Neut % (Auto) 55.4, Lymph % (Auto) 29.4, Colbert % (Auto) 10.2 H, Eos % (Auto) 4.0, Baso % (Auto) 0.7, Absolute Neuts (auto) 5.5, Nucleated RBC % 0 02/07/21 05:26: PT 12.8, INR 1.0 02/07/21 05:26: Sodium 135 L, Potassium 3.9, Chloride 101, Carbon Dioxide 26.0, Anion Gap 8, BUN 16, Creatinine 1.05, Est GFR (MDRD) Af Amer 88, Est GFR (MDRD) Non-Af 73, BUN/Creatinine Ratio 15.2, Glucose 186 H, Calcium 9.0 Rhythm: EKG: ECHO: Stress Test: Cardiac Cath: PCI: CT Surgery: Holter monitor: EPS: PPM: CXR: Chest CT Scan: Physical Exam Const oriented x3 and healthy appearing Orientation / Consciousness: awake HEENT normocephalic Eyes PERRL and conjunctivae normal Neck supple, no JVD and no carotid bruits Chest inspection of chest normal Resp normal respiratory effort and clear to auscultation bilaterally Cardio Palpation: normal PMI Rate: regular rate Rhythm: regular rhythm and abnormal rhythm irregularly irregular Heart Sounds: S1 normal and S2 normal Peripheral Pulses: pulses 2+ throughout GI normal to inspection, nondistended, normoactive bowel sounds Extremity normal to inspection and no clubbing, cyanosis or edema Psych mental status grossly normal Assessment & Plan Assessment/Plan (1) Atrial fibrillation with RVR: PLAN: He does have atrial fibrillation with a rapid ventricular response rate. This appears to be controlled at this time. * Would recommend continuing carvedilol at 25 mg twice a day * [place] diltiazem long-acting at 120 mg once a day * Will recommend anticoagulation starting from tomorrow. This can be instituted by his primary care physician as an outpatient. (2) Chest pain: QUALIFIERS: Chest pain type: unspecified Qualified Code(s): R07.9 - Chest pain, unspecified PLAN: He underwent cardiac catheterization today which demonstrated minimal coronary artery disease. He can follow-up with his molecular biology scientist at the clinic if need be. Stable for discharge later today.
--- NOTE | 2021-02-07 08:20 | CL.D_ITS ---
Patient Name: INGRIS BALBUENA Study Date: 02/07/2021 Performing: Devante Ponce MD Ht: 72.04 inches 183 cm : 1945 Wt: 286.6 lbs 130 kg Age: 75 Gender: male BSA: 2.48 PROCEDURE(S) PERFORMED HH11-OWK/COR/LV CLINICAL PROFILE AND INDICATIONS Indications: Suspected CAD Heart Failure: None Stress/Imaging Stress/Image Study Performed: No CAD Presentations: Stable angina. CONCLUSIONS Mild nonobstructive CAD. Preserved left ventricular function. Atrial fibrillation. RECOMMENDATIONS Medical therapy DESCRIPTION OF PROCEDURE The patient arrived to the procedure lab. The risks and benefits of the procedure as well as a full d escription of our services here and current unavailability of surgical backup were fully explained to the patient and/or their significant other prior to the catheterization. The Timeout was completed, verifying the correct patient and procedure. The patient's procedural site was prepped and draped in the usual fashion. Local anesthetic was given subcutaneously to right radial region with Lidocaine 2% . Local anesthetic was given subcutaneously to right groin region with Lidocaine 2%. Using a modified Seldinger technique, arterial access was obtained via the right radial artery, a 6Fr sheath was inse rted., arterial access was obtained via the right femoral artery, a 5Fr sheath was inserted. Left Co ronary Artery selective angiography was performed in multiple views using a 5 Fr. JL4 catheter. Right Coronary Artery selective angiography was then performed in multiple views using a 5 Fr. 3DRC (Jethro) catheter. Left Ventriculography was performed in HERNANDEZ projection using a 5 Fr. Pigtail catheter. LV to AO pullback pressures were then recorded.Contrast was injected through the sheath an d the Right Iliac and Femoral artery were assessed for possible closure device.The arterial sheath wa s pulled and a Mynx closure device was deployed for hemostasis. The arterial sheath was pulled and a TR Band was applied for hemostasis 8cc air inserted CORONARY ANGIOGRAPHY DOMINANCE: Right Dominant LEFT HEART ASSESSMENT Left Ventricular Ejection Fraction: by LV Gram 65 % Normal LV wall motion Normal Left Ventricular systolic function LEFT MAIN: Non-obstructive LEFT ANTERIOR DESCENDING ARTERY: PROX LAD: smooth 40 % Stenosis CIRCUMFLEX ARTERY: Mild luminal irregularities RIGHT CORONARY ARTERY: Mild luminal irregularities COMPLICATIONS No Complications PROCEDURE MEDICATIONS Fentanyl 50 mcg IV Versed 1 mg IV Oxygen: 2 L/min via nasal cannula Heparin given IA 02/07/2021 07:41:05 Verapamil 2.5mg, Ntg 100mcgs, 3000 units of Heparin given IA 02/07/2021 07:41:05 SUMMARY OF HEMODYNAMIC DATA Time AIR REST ECG 07:24:47 Art 145/69 (95) 07:38:57 AO 112/77 (94) SA 07:48:29 LV 114/9, 13 08:02:25 LV 111/7, 14 08:02:37 LV 113/11, 19 08:03:15 LVp 108/12, 16 08:03:23 Signed By Devante Ponce MD On 02/07/2021 08:19:31 Devante Ponce MD
[2021-02-07] MEDS: Insulin Lispro 100 UNIT/ML INSULN.PEN SC ×4 (08:56→11:48)
[2021-02-07] MEDS: 0.9% Normal Saline 1,000 ML 75 ML IV (08:57)
[2021-02-07] MEDS: Finasteride 5 MG Tablet PO (09:00)
[2021-02-07] MEDS: Carvedilol 25 MG Tablet PO (09:00)
[2021-02-07] MEDS: Famotidine 20 MG Tablet PO (09:00)
[2021-02-07] MEDS: Tamsulosin HCl 0.4 MG Capsule PO (09:00)
[2021-02-07] MEDS: dilTIAZem CD 120 MG Capsule PO (09:03)
--- NOTE | 2021-02-07 09:20 | CASEMGMT ---
According to the [facility] website, the following are in-network tertiary facilities: [facility], [facility], [facility], and . Imelda MUNGUIA CM
[2021-02-07 10:20] LABS: Bedside Glucose 217 mg/dL (70-110)
--- NOTE | 2021-02-07 10:49 | DCINST_ITS ---
Discharge Instructions Diet Discharge Diet: Low fat / Low cholesterol Activity Discharge Activity: - (Follow post cath activity instructions) Dressing / Incision Call your doctor if you observe: Shortness of breath, Dizziness, Chest pain and Increased palpitations (irregular heartbeat) Follow Up Care Test Results: Test results from this visit will be discussed in further detail at your follow-up appointment, if applicable. Discharge Plan Admission Admit Date/Time: 02/05/21 21:21 Primary Reason for Your Visit: Chest pain, Atrial fibrillation Attending Provider: Marcelo Dixon Primary Care Provider: Jeff Subramanian Consulting Providers: Chloe Campuzano Discharge Orders/Prescriptions Prescriptions: New carvedilol 25 mg Tablet 25 mg PO BID Qty: 60 RF: 0 aspirin 81 mg Tablet,Chewable 81 mg PO DAILY@0800 Qty: 30 RF: 0 diltiazem HCl 120 mg Capsule,Extended Release 24hr 120 mg PO DAILY Qty: 30 RF: 0 Eliquis 5 mg tablet 5 mg PO BID Qty: 60 RF: 0 Continued simvastatin 40 MG tablet 40 mg PO QHS RF: 0 tamsulosin 0.4 MG capsule 0.4 mg PO DAILY Qty: 30 RF: 0 Finasteride 5 MG tablet 5 mg PO DAILY RF: 0 losartan 25 mg Tablet 12.5 mg PO DAILY RF: 0 colestipol 1 gram Tablet 1 g PO DAILY RF: 0 insulin lispro [Humalog KwikPen Insulin] 100 unit/mL Insulin Pen 4 unit SUBCUT TID RF: 0 Lantus Solostar U-100 Insulin 100 unit/mL (3 mL) Insulin Pen 66 unit SUBCUT QPM RF: 0 Held metformin 1,000 MG tablet 1,000 mg PO BIDCM RF: 0 Hold Instructions: Resume on 02/09/21. Discontinued carvedilol [Coreg] 12.5 mg Tablet 12.5 mg PO BID RF: 0 Referrals / Follow Up: Devante Ponce MD [STAFF PHYSICIAN] - See Referral Note (Follow-up with INTERNAL MEDICINE PHYSICIAN ASSISTANT/PA in 2 weeks.) Jeff Subramanian MD [Primary Care Provider] - In 1 Week Disposition Disposition (needs filled in before D/C Order can be placed): Home, self care
--- NOTE | 2021-02-07 10:53 | CASEMGMT ---
NILDA BELLA assessment: Face to Face with patient for initial transition planning/care coordination assessment. NILDA BELLA introduced self and role at [facility], pt voices understanding and consents to assessment. Pt is lying in bed in no distress. Pt is A/Ox4 and answers all questions appropriately. Care providers, pharmacy, and demographics verified. 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 Preferred Pharmacy: [facility] Insurance: [employer] Prescription Benefit: [employer] Living Will/HPOA: Pt states has LW/HPOA and is aware that they are not on file at [facility]. Pt states his daughter, Kaur Brooks, is HPOA. LNOK: Kaur Brooks, daughter/HPOA Living Arrangements: Pt states lives alone in mobile home with 7 steps in and states no concerns at home. Pt states is independent with ADL's. Transportation: Pt states drives self and states no transportation concerns. DME/HHC: Pt states has the following DME: cane, walker, w/c x2, grab bars, and shower chair. Pt states no need for any further DME. Pt states no hx of HHC or SNF in the past. Pt states no concerns with going home at time of discharge. Pt is retired. Pt states does not smoke cigarettes or drink ETOH. Pt states no further concerns or needs. CM to follow for Eliquis cost and any further discharge planning/needs. Pt was provided with 30 day free trial card. Advised pt to ask for CM if any further questions/concerns/needs arise, voices understanding. Pt Goal: Home Plan: [place] NILDA BELLA
--- NOTE | 2021-02-07 10:59 | DS.PCM_ITS ---
Documented by User: Deirdre Amaya NP, SYSTEM VALIDATION ENGINEER-C 02/07/21 11:04 Providers Date of Admission: 02/05/21 Date of Discharge: 02/07/21 Primary Care Physician: Dr. Jeff Subramanian MD Consultations 02/05/21 22:43 Consult: Cardiology Routine Consulting Provider: Chloe Campuzano Reason for Consult: Chest pain (recent [facility] eval, planned cath sunday), Afib RVR EMERGENT Consult: No MD Notified: Yes Date Notified:: 02/05/21 Time Notified: 21:19 Method of Notification: Text Reason For Visit: CHEST PAIN, PAF WITH RVR Diagnosis Discharge Diagnosis (1) Atrial fibrillation with RVR: Status: Acute Code(s): I48.91 - Unspecified atrial fibrillation (2) Chest pain: Status: Acute Code(s): R07.9 - Chest pain, unspecified Qualifiers: Chest pain type: unspecified Qualified Code(s): R07.9 - Chest pain, unspecified Medications at Discharge Home Medications metformin 1,000 mg PO BIDCM 04/21/15 simvastatin 40 mg PO QHS 04/21/15 tamsulosin 0.4 mg PO DAILY #30 cap 02/07/19 Finasteride 5 mg PO DAILY 11/18/19 Lantus Solostar U-100 Insulin 66 unit SUBCUT QPM 02/05/21 colestipol 1 g PO DAILY 02/05/21 insulin lispro [Humalog KwikPen Insulin] 4 unit SUBCUT TID 02/05/21 losartan 12.5 mg PO DAILY 02/05/21 apixaban [Eliquis] 5 mg PO BID #60 tab 02/07/21 aspirin 81 mg PO DAILY@0800 #30 tab 02/07/21 carvedilol 25 mg PO BID #60 tab 02/07/21 diltiazem HCl 120 mg PO DAILY #30 cap 02/07/21 Hospital Course Operations None Procedures Cardiac catheterization Summary of Care Provided Minutes Spent on Discharge: 35 Hospital Course: Patient is a 75-year-old male admitted 02/05/2021 due to chest pain, dyspnea and palpitations. 1. New onset atrial fibrillation/atrial flutter-placed on Cardizem drip on admission. Converted to sinus rhythm. Continue carvedilol 25 mg twice daily and long-acting Cardizem 120 mg daily. Begin Eliquis 5 mg twice daily starting 02/08/2021. Follow-up with cardiology in 2 weeks. 2. Chest pain-cardiology consulted. Patient underwent heart cath which demonstrated minimal CAD. Continue aspirin, statin, beta-salvador. Routine foll ow-up with cardiology as noted above. 3. Type 2 diabetes mellitus-continue home oral and insulin regimen. 4. Hypertension-continue Coreg, losartan. 5. Hyperlipidemia-continue statin. 6. Obesity-encouraged diet lifestyle modifications. 7. BPH-on finasteride, Flomax. Physical Exam Const alert, oriented x3 and no apparent distress Orientation / Consciousness: awake, oriented to person, oriented to place and oriented to time HEENT normocephalic and moist oral mucous membranes Eyes PERRL, EOMs intact bilaterally and conjunctivae normal Neck no lymphadenopathy Resp normal respiratory effort and clear to auscultation bilaterally Cardio regular rate, regular rhythm and no murmurs Peripheral Pulses: pulses 2+ throughout GI normal to inspection, nondistended, normoactive bowel sounds, non-tender and non-distended Extremity normal to inspection Skin no rashes or lesions noted Lesions: no lesions Rashes: no rashes Trauma: no lacerations or abrasions Neuro CN's II-XII intact bilaterally, no focal motor deficits, no sensory deficits noted and deep tendon reflexes 2+ bilaterally Psych mental status grossly normal and affect normal Patient seen and examined prior to discharge. Physical assessment as noted above. Patient is stable for discharge with follow up recommendations as noted above. This patient was seen by EZRA Mclain under the supervision of Dr. Dixon. ABG / Lab / Microbiology Data Result Diagrams: 02/07/21 05:26 02/07/21 05:26 Laboratory: Laboratory Results - last 24 hr 02/06/21 02/06/21 02/06/21 14:09 16:38 21:25 WBC RBC Hgb Hct MCV MCH MCHC RDW Std Deviation RDW Coeff of Lucia Plt Count MPV Immature Gran % (Auto) Neut % (Auto) Lymph % (Auto) Maverick % (Auto) Eos % (Auto) Baso % (Auto) Absolute Neuts (auto) Absolute Lymphs (auto) Nucleated RBC % PT INR Sodium Potassium Chloride Carbon Dioxide Anion Gap BUN Creatinine Estim Creat Clear Calc Est GFR (MDRD) Af Amer Est GFR (MDRD) Non-Af BUN/Creatinine Ratio Glucose Calcium POC Glucose 335 H 250 H 250 H 02/07/21 02/07/21 02/07/21 05:26 05:26 05:26 WBC 10.0 RBC 5.86 Hgb 16.7 H Hct 49.5 MCV 84.5 MCH 28.5 MCHC 33.7 RDW Std Deviation 37.3 RDW Coeff of Lucia 12.2 Plt Count 242 MPV 11.1 Immature Gran % (Auto) 0.300 Neut % (Auto) 55.4 Lymph % (Auto) 29.4 Maverick % (Auto) 10.2 H Eos % (Auto) 4.0 Baso % (Auto) 0.7 Absolute Neuts (auto) 5.5 Absolute Lymphs (auto) 2.93 Nucleated RBC % 0 PT 12.8 INR 1.0 Sodium 135 L Potassium 3.9 Chloride 101 Carbon Dioxide 26.0 Anion Gap 8 BUN 16 Creatinine 1.05 Estim Creat Clear Calc 65.69 Est GFR (MDRD) Af Amer 88 Est GFR (MDRD) Non-Af 73 BUN/Creatinine Ratio 15.2 Glucose 186 H Calcium 9.0 POC Glucose 02/07/21 02/07/21 06:05 08:52 WBC RBC Hgb Hct MCV MCH MCHC RDW Std Deviation RDW Coeff of Lucia Plt Count MPV Immature Gran % (Auto) Neut % (Auto) Lymph % (Auto) Maverick % (Auto) Eos % (Auto) Baso % (Auto) Absolute Neuts (auto) Absolute Lymphs (auto) Nucleated RBC % PT INR Sodium Potassium Chloride Carbon Dioxide Anion Gap BUN Creatinine Estim Creat Clear Calc Est GFR (MDRD) Af Amer Est GFR (MDRD) Non-Af BUN/Creatinine Ratio Glucose Calcium POC Glucose 215 H 217 H D/C Instructions Discharge Diet: Low fat / Low cholesterol Discharge Activity: - (Follow post cath activity instructions) Call your doctor if you observe: Shortness of breath, Dizziness, Chest pain and Increased palpitations (irregular heartbeat) Meaningful Use Info Meaningful Use Diagnoses (Choose all that apply): None applicable Discharge Plan Admission Admit Date/Time: 02/05/21 21:21 Primary Reason for Your Visit: Chest pain, Atrial fibrillation Attending Provider: Marcelo Dixon Primary Care Provider: Jeff Subramanian Consulting Providers: Nagajothi,Nagapradee Instructions Additional Instructions / Restrictions: Patient Problems: Altered Health Status related to Hospitalization Patient Goals: *Optimal Level of Health *Keep Appointments *Medication Compliance *Remain Safe Discharge Orders/Prescriptions Prescriptions: New carvedilol 25 mg Tablet 25 mg PO BID Qty: 60 RF: 0 aspirin 81 mg Tablet,Chewable 81 mg PO DAILY@0800 Qty: 30 RF: 0 diltiazem HCl 120 mg Capsule,Extended Release 24hr 120 mg PO DAILY Qty: 30 RF: 0 Eliquis 5 mg tablet 5 mg PO BID Qty: 60 RF: 0 Continued simvastatin 40 MG tablet 40 mg PO QHS RF: 0 tamsulosin 0.4 MG capsule 0.4 mg PO DAILY Qty: 30 RF: 0 Finasteride 5 MG tablet 5 mg PO DAILY RF: 0 losartan 25 mg Tablet 12.5 mg PO DAILY RF: 0 colestipol 1 gram Tablet 1 g PO DAILY RF: 0 insulin lispro [Humalog KwikPen Insulin] 100 unit/mL Insulin Pen 4 unit SUBCUT TID RF: 0 Lantus Solostar U-100 Insulin 100 unit/mL (3 mL) Insulin Pen 66 unit SUBCUT QPM RF: 0 Held metformin 1,000 MG tablet 1,000 mg PO BIDCM RF: 0 Hold Instructions: Resume on 02/09/21. Discontinued carvedilol [Coreg] 12.5 mg Tablet 12.5 mg PO BID RF: 0 Referrals / Follow Up: Devante Ponce MD [STAFF PHYSICIAN] - 02/22/21 2:30 pm (Follow-up with SYSTEM VALIDATION ENGINEER/PA in 2 weeks. Will have appointment with CASIMIRO Gilbert) Jeff Subramanian MD [Primary Care Provider] - 02/15/21 2:40 pm Disposition Disposition (needs filled in before D/C Order can be placed): Home, self care Documented by User: Dr. Marcelo Dixon DO 02/07/21 16:57 Providers Date of Admission: 02/05/21 Reason For Visit: CHEST PAIN, PAF WITH RVR Medications at Discharge Home Medications metformin 1,000 mg PO BIDCM 04/21/15 simvastatin 40 mg PO QHS 04/21/15 tamsulosin 0.4 mg PO DAILY #30 cap 02/07/19 Finasteride 5 mg PO DAILY 11/18/19 Lantus Solostar U-100 Insulin 66 unit SUBCUT QPM 02/05/21 colestipol 1 g PO DAILY 02/05/21 insulin lispro [Humalog KwikPen Insulin] 4 unit SUBCUT TID 02/05/21 losartan 12.5 mg PO DAILY 02/05/21 apixaban [Eliquis] 5 mg PO BID #60 tab 02/07/21 aspirin 81 mg PO DAILY@0800 #30 tab 02/07/21 carvedilol 25 mg PO BID #60 tab 02/07/21 diltiazem HCl 120 mg PO DAILY #30 cap 02/07/21 Hospital Course Operations None Procedures Cardiac catheterization Summary of Care Provided Minutes Spent on Discharge: 33 Hospital Course: Patient seen and examined independently. Data reviewed. I agree with the above note by the nurse practitioner. This is a 75-year-old male who presented with chest pain, dyspnea palpitations. Patient was found to be in A. fib/a flutter. Did convert to sinus rhythm with a diltiazem infusion. Patient would be discharged with carvedilol 25 mg twice daily plus diltiazem 120 mg daily. Patient also be anticoagulated with apixaban 5 mg twice daily. Patient will follow up with cardiology in 2 weeks. Patient with chest pain underwent work-up including a left heart catheterization that showed minimal coronary artery disease. No intervention was performed. Patient will be discharged home in stable condition. Physical Exam Const alert and oriented x3 General Appearance: cooperative Cardio regular rate, regular rhythm, S1 normal heart sound and S2 normal heart sound GI normal to inspection, nondistended, normoactive bowel sounds, non-tender and non-distended ABG / Lab / Microbiology Data Result Diagrams: 02/07/21 05:26 02/07/21 05:26 Discharge Plan Admission Admit Date/Time: 02/05/21 21:21 Primary Reason for Your Visit: Chest pain, Atrial fibrillation Attending Provider: Marcelo Dixon Primary Care Provider: Jeff Subramanian Consulting Providers: Nagajothi,Nagapradee Instructions Additional Instructions / Restrictions: Patient Problems: Altered Health Status related to Hospitalization Patient Goals: *Optimal Level of Health *Keep Appointments *Medication Compliance *Remain Safe Discharge Orders/Prescriptions Prescriptions: New carvedilol 25 mg Tablet 25 mg PO BID Qty: 60 RF: 0 aspirin 81 mg Tablet,Chewable 81 mg PO DAILY@0800 Qty: 30 RF: 0 diltiazem HCl 120 mg Capsule,Extended Release 24hr 120 mg PO DAILY Qty: 30 RF: 0 Eliquis 5 mg tablet 5 mg PO BID Qty: 60 RF: 0 Continued simvastatin 40 MG tablet 40 mg PO QHS RF: 0 tamsulosin 0.4 MG capsule 0.4 mg PO DAILY Qty: 30 RF: 0 Finasteride 5 MG tablet 5 mg PO DAILY RF: 0 losartan 25 mg Tablet 12.5 mg PO DAILY RF: 0 colestipol 1 gram Tablet 1 g PO DAILY RF: 0 insulin lispro [Humalog KwikPen Insulin] 100 unit/mL Insulin Pen 4 unit SUBCUT TID RF: 0 Lantus Solostar U-100 Insulin 100 unit/mL (3 mL) Insulin Pen 66 unit SUBCUT QPM RF: 0 Held metformin 1,000 MG tablet 1,000 mg PO BIDCM RF: 0 Hold Instructions: Resume on 02/09/21. Discontinued carvedilol [Coreg] 12.5 mg Tablet 12.5 mg PO BID RF: 0 Referrals / Follow Up: Devante Ponce MD [STAFF PHYSICIAN] - 02/22/21 2:30 pm (Follow-up with SYSTEM VALIDATION ENGINEER/PA in 2 weeks. Will have appointment with CASIMIRO Gilbert) Jeff Subramanian MD [Primary Care Provider] - 02/15/21 2:40 pm Disposition Disposition (needs filled in before D/C Order can be placed): Home, self care Visit Charges Inpatient E&M: 95421 Disch Hosp
--- NOTE | 2021-02-07 11:49 | CASEMGMT ---
Pt to be sent home on Eliquis at discharge and med e-scribe to [facility] previously. Call to [place] at [facility] and he states pt's co-pay is $42. Pt already provided with a 30 day free trial card. Imelda MUNGUIA CM
[2021-02-07 12:00] LABS: Bedside Glucose 223 mg/dL (70-110)
--- NOTE | 2021-02-07 14:16 | PHA.DC.MC ---
Pharmacy Service has performed discharge medication reconciliation and counseling for this patient. 1. ASPIRIN 81MG PO DAILY 2. DILTIAZEM CD 120MG PO DAILY 3. APIXABAN 5MG PO BID The patient's discharge medication list was reviewed for discrepancies and discrepancies were resolved. Home Medications metformin 1,000 mg PO BIDCM 04/21/15 simvastatin 40 mg PO QHS 04/21/15 tamsulosin 0.4 mg PO DAILY #30 cap 02/07/19 Finasteride 5 mg PO DAILY 11/18/19 Lantus Solostar U-100 Insulin 66 unit SUBCUT QPM 02/05/21 colestipol 1 g PO DAILY 02/05/21 insulin lispro [Humalog KwikPen Insulin] 4 unit SUBCUT TID 02/05/21 losartan 12.5 mg PO DAILY 02/05/21 apixaban [Eliquis] 5 mg PO BID #60 tab 02/07/21 aspirin 81 mg PO DAILY@0800 #30 tab 02/07/21 carvedilol 25 mg PO BID #60 tab 02/07/21 diltiazem HCl 120 mg PO DAILY #30 cap 02/07/21 The patient was counseled on the following discharge medications and changes in medications for homegoing were reviewed. The Reason for Use, instructions for use, and potential side effects were reviewed for all new medications. The patient's questions regarding all of their medications were answered. The patient was able to verbally demonstrate an understanding of their discharge medications. Patient counseled by customs collector
--- NOTE | 2021-02-08 12:05 | CASEMGMT ---
RN CM Discharge Follow Up Phone Call: JERO: Katerin Strata: 3 Call Date: 02.08.21 Discharge Date: 02.07.21 Time of Call: 1204 Duration:<1 min Admitting Dx: CP, PAF with RVR RN SHAYNE attempted to complete follow up phone call after recent hospitalization. Pt has a voicemail box that is not set up, unable to leave a message.
== END 2021-02-07 14:06 | disposition home or self-care (01) | DRG 287 ==
LOC: ED 19:03 → ICU 21:33 → PCU 02-06 15:31
PROVIDERS: Internal Medicine; Nurse Practitioner Family; Admitting Provider Family Medicine; Emergency Provider Emergency Medicine; PCP Family Medicine
DX: I48.91 Unspecified atrial fibrillation (principal); Z68.41 Body mass index [BMI] 40.0-44.9, adult; E11.9 Type 2 diabetes mellitus without complications; I48.92 Unspecified atrial flutter; I25.10 Atherosclerotic heart disease of native coronary artery without angina pectoris; E78.5 Hyperlipidemia, unspecified; I10 Essential (primary) hypertension; I45.10 Unspecified right bundle-branch block; E78.00 Pure hypercholesterolemia, unspecified; N40.0 Benign prostatic hyperplasia without lower urinary tract symptoms; E66.9 Obesity, unspecified; Z79.4 Long term (current) use of insulin; Z66 Do not resuscitate; Z79.01 Long term (current) use of anticoagulants; Z79.82 Long term (current) use of aspirin; Z79.899 Other long term (current) drug therapy; Z80.0 Family history of malignant neoplasm of digestive organs; Z82.49 Family history of ischemic heart disease and other diseases of the circulatory system; Z83.3 Family history of diabetes mellitus; Z87.891 Personal history of nicotine dependence; Z88.0 Allergy status to penicillin; Z90.49 Acquired absence of other specified parts of digestive tract
CPT/HCPCS: 36415; 71045; 80048; 80053; 80061; 82962; 83735; 84443; 84484; 85025; 85610; 85730; 93005; 93458; 99152; 99153; 99251; 99285; C1760; J7030; Q9967; A4216; C1769; C1894; G0463

== ENCOUNTER 2021-02-22 19:53 | Emergency (ER) | payer MEDICARE, SELFPAY ==
[2021-02-22 14:33] VITALS: BMI 38.0
[2021-02-22 19:53] VITALS: BP 161/69; PULSE 83; RESP 22; TEMP 36.4; O2SAT 95; BMI 38.0
--- NOTE | 2021-02-22 20:45 | RAD_ITS ---
STUDY: X-RAY CHEST REASON FOR EXAM: Male, 75 years old. Chest pain TECHNIQUE: Single frontal view of the chest. COMPARISON: 02/05/2021 FINDINGS: There is no new focal consolidation. Normal size heart. Normal mediastinum and shashi. Normal visualized pulmonary arteries. Normal visualized aortic arch and descending thoracic aorta. Normal visualized thoracic spine. Normal visualized ribs, clavicles, and shoulders. There is no demonstrated abnormality of the visualized soft tissue structures of the upper abdomen. RAD/Chest 1 View (Portable) IMPRESSION: No acute cardiopulmonary process. Electronically Signed: Maggie Thornton MD at 22:36 EDT Tel , Service support ,
--- NOTE | 2021-02-22 20:45 | EKG12_ITS ---
Test Reason : PALPS Blood Pressure : / mmHG Vent. Rate : 088 BPM Atrial Rate : 394 BPM P-R Int : 000 ms QRS Dur : 142 ms QT Int : 382 ms P-R-T Axes : 000 -75 045 degrees QTc Int : 462 ms Atrial fibrillation Right bundle branch block Left anterior fascicular block Bifascicular block Abnormal ECG Confirmed by ROLAND SAMUEL, MIGUEL ANGEL ([id number]), purchasing expeditor BALDOMERO HARRIS ([id number]) on 02/25/2021 8:34:01 AM Referred By: CANDICE Confirmed By:MIGUEL ANGEL WATKINS MD
--- NOTE | 2021-02-22 20:46 | EX.ED.DYSGE1 ---
HPI History of Present Illness Chief Complaint: Palpitations Informant: patient Narrative Narrative: Patient is a 75-year-old male with a past medical history of diabetes, hypertension, hyperlipidemia, A. fib who presents to the emergency department for an episode of chest discomfort and palpitations. This started just prior to arrival emergency department. He believes that it only lasted a few minutes. It was substernal. He is currently asymptomatic. He did have palpitations during that time. Patient actually saw his workforce development assistant today. He was in A. fib on their EKG. He is anticoagulated for this. They did increase his carvedilol to twice a day as he was only on it once a day previously. Shortly after taking the second dose today he developed the symptoms. He denies any recent illness including any cough, fever/chills. Denies any shortness of breath. No leg swelling or calf pain. He has not been nauseous or vomiting. No change in moving bowels. He states he has been compliant with all of his medications. [facility] Medical History (Updated 02/22/21 @ 22:[address] Ryland Freire, ) Arteriosclerotic heart disease (ASHD) Atrial fibrillation Atrial fibrillation with RVR (02/05/21) BPH (benign prostatic hyperplasia) Enlarged prostate Essential (primary) hypertension Hyperlipidemia Irregular heart beat New onset atrial fibrillation (02/05/21) Obesity Type 2 diabetes mellitus Home Medications metformin 1,000 mg PO BIDCM 04/21/15 [History Last Taken Unknown] simvastatin 40 mg PO QHS 04/21/15 [History Last Taken Unknown] tamsulosin 0.4 mg PO DAILY #30 cap 02/07/19 [Rx Last Taken Unknown] Finasteride 5 mg PO DAILY 11/18/19 [History Last Taken Unknown] Lantus Solostar U-100 Insulin 66 unit SUBCUT QPM 02/05/21 [History Last Taken Unknown] colestipol 1 g PO DAILY 02/05/21 [History Last Taken Unknown] insulin lispro [Humalog KwikPen Insulin] 4 unit SUBCUT TID 02/05/21 [History Last Taken Unknown] losartan 12.5 mg PO DAILY 02/05/21 [History Last Taken Unknown] apixaban 5 mg tablet 5 mg PO BID #180 tab 02/22/21 [Rx Last Taken Unknown] aspirin 81 mg tablet,delayed release 81 mg PO DAILY #90 tab 02/22/21 [Rx Last Taken Unknown] carvedilol 25 mg tablet 25 mg PO BID #180 tab 02/22/21 [Rx Last Taken Unknown] diltiazem HCl 120 mg capsule,extended release 24 hr 120 mg PO BID #180 cap 02/22/21 [Rx Last Taken Unknown] Allergy/AdvReac Type Severity Reaction Status Date / Time amoxicillin Allergy Rash Verified 02/22/21 19:53 Family History Sister Colon cancer Brother Diabetes Mother Diabetes Heart disease Cancer Father Heart disease Cancer Diabetes Surgical History H/O hemorrhoidectomy h/o wrist surgery History of left heart catheterization (02/07/21) Hx of cholecystectomy Hx of umbilical hernia repair Status post surgical manipulation of ankle joint Social History household members: spouse Smoking Status: Former smoker alcohol intake: never substance use type: does not use ROS ROS ED Constitutional Constitutional ED: Denies chills or fever(s) Eyes Eyes: Denies change in vision ENT ENT ED: Denies epistaxis or rhinorrhea Cardiovascular Cardiovascular: Reports chest pain and palpitations Respiratory/Chest Respiratory/Chest: Denies cough, dyspnea or dyspnea on exertion Gastrointestinal Gastrointestinal: Denies abdominal pain, diarrhea, nausea or vomiting Genitourinary Genitourinary ED: Denies dysuria, hematuria or urinary frequency Musculoskeletal Musculoskeletal: Denies back pain or neck pain Integumentary Denies rash Neurologic Neurologic: Denies dizziness, headache(s) or weakness EXAM Physical Exam Const Vital Signs: 02/22/21 19:53 02/22/21 20:09 02/22/21 21:00 Temperature 97.6 F L Temperature Source Temporal Pulse Rate 83 80 Respiratory Rate 22 H 22 H Respiratory Effort Normal Non-Labored Blood Pressure 161/69 H 146/77 H Blood Pressure Mean 99 100 Pulse Ox 95 93 Oxygen Delivery Method Room Air Room Air 02/22/21 22:15 Temperature Temperature Source Pulse Rate 76 Respiratory Rate 19 H Respiratory Effort Blood Pressure 142/72 H Blood Pressure Mean Pulse Ox 93 Oxygen Delivery Method Positive well nourished and well developed General Appearance ED: well developed and NAD HEENT Reports normocephalic, head/scalp atraumatic and moist mucous membranes Eyes PERRL and EOMs intact bilaterally Neck supple Resp normal respiratory effort and clear to auscultation bilaterally Auscultation: Negative for rales, rhonchi or wheezes Cardio regular rate and no murmurs Cardio Narrative: Irregularly irregular rhythm GI normal to inspection, nondistended, normoactive bowel sounds and non-tender Palpation: soft; Negative for guarding or rebound tenderness present Back/Spine no CVA tenderness Extremity normal to inspection General Extremety ED: Negative for edema or tenderness General Extremity: Negative for edema Neuro oriented x3, CN's II-XII intact bilaterally and no sensory deficits noted Sensorium / Orientation: alert Motor Exam: strength 5/5 throughout Psych mental status grossly normal Skin no rashes or lesions noted MDM MDM MDM Narrative Medical decision making narrative: Patient presents to the ED for short episode of chest pain and palpitations. Upon arrival to the emergency department he is in A. fib. He has been in this without symptoms earlier today. He is currently asymptomatic. The episode lasted a short while. Will check basic lab work and continue on networking administrator. Patient did just recently have a heart catheterization performed last month. This did not require any intervention. Single view chest x-ray interpreted by myself. Clear lung henderson bilaterally. No effusions. Normal cardiac silhouette. Normal mediastinum. Agree with radiologist. Patient has converted to normal sinus rhythm and bounce back into A. fib. No evidence of RVR. At time of reexamination he is back in normal sinus rhythm. Lab work did not reveal a significant acute abnormality. Has been asymptomatic throughout ED stay. With the recent negative heart cath and negative troponin without any signs of ischemia I have very low concern for CAD, PE, aortic catastrophe. I did offer her a repeat troponin test but they did not want to be discharged home at this time. They understand the reason for the repeat troponin test and still do not want it. They are going to follow-up with his workforce development assistant. Return precautions are reviewed. They understand and are agreeable this plan. All questions answered Lab Data Labs: Laboratory Results - last 24 hr 02/22/21 02/22/21 20:10 20:10 WBC 10.2 RBC 5.21 Hgb 14.9 Hct 44.0 MCV 84.5 MCH 28.6 MCHC 33.9 RDW Std Deviation 38.1 RDW Coeff of Lucia 12.4 Plt Count 221 MPV 11.3 Immature Gran % (Auto) 0.300 Neut % (Auto) 63.7 Lymph % (Auto) 22.0 [place] % (Auto) 9.0 Eos % (Auto) 4.2 Baso % (Auto) 0.8 Absolute Neuts (auto) 6.5 Absolute Lymphs (auto) 2.25 Nucleated RBC % 0 Sodium 135 L Potassium 3.6 Chloride 103 Carbon Dioxide 24.0 Anion Gap 8 BUN 15 Creatinine 0.95 Estim Creat Clear Calc 72.61 Est GFR (MDRD) Af Amer 99 Est GFR (MDRD) Non-Af 82 BUN/Creatinine Ratio 15.8 Glucose 196 H Calcium 9.1 Magnesium 1.8 Troponin I < 0.015 Radiography Diagnostic Testing: Radiology Impression Chest X-Ray 02/22/21 20:45 IMPRESSION: No acute cardiopulmonary process. Electronically Signed: Maggie Thornton MD at 22:36 EDT Tel , Service support , EKG Initial EKG: Attestation: I personally reviewed and interpreted this EKG as follows: (Rate of 88 bpm and an irregularly irregular rhythm. Prolonged QRS of 142 with right bundle branch block. Otherwise left axis deviation. No significant ST elevations or depressions.) Discharge Plan Triage Chief Complaint: Palpitations ED Provider: Ryland Freire Dx/Rx/DC Orders Clinical Impression: Atrial fibrillation, Heart palpitations Instructions: ED AFIB, ED Palpitations Prescriptions: No Action Eliquis 5 mg tablet 5 mg PO BID Qty: 180 RF: 3 aspirin 81 mg tablet,delayed release (DR/EC) 81 mg PO DAILY Qty: 90 RF: 3 carvedilol 25 mg tablet 25 mg PO BID Qty: 180 RF: 3 diltiazem HCl 120 mg capsule,extended release 24hr 120 mg PO BID Qty: 180 RF: 3 simvastatin 40 MG tablet 40 mg PO QHS RF: 0 metformin 1,000 MG tablet 1,000 mg PO BIDCM RF: 0 Hold Instructions: Resume on 02/09/21. tamsulosin 0.4 MG capsule 0.4 mg PO DAILY Qty: 30 RF: 0 Finasteride 5 MG tablet 5 mg PO DAILY RF: 0 losartan 25 mg Tablet 12.5 mg PO DAILY RF: 0 colestipol 1 gram Tablet 1 g PO DAILY RF: 0 insulin lispro [Humalog KwikPen Insulin] 100 unit/mL Insulin Pen 4 unit SUBCUT TID RF: 0 Lantus Solostar U-100 Insulin 100 unit/mL (3 mL) Insulin Pen 66 unit SUBCUT QPM RF: 0 Primary Care Provider: Jeff Subramanian Referrals: Jeff Subramanian MD [Primary Care Provider] - 2 Days Disposition Disposition: Home, self care Discharge Date/Time: 02/22/21 22:16
[2021-02-22 21:00] VITALS: BP 146/77; PULSE 80; RESP 22; O2SAT 93
[2021-02-22 21:07] LABS: Absolute Lymphocyte Count 2.25 X10^3/uL (0.83-4.51); Absolute Neutrophil Count 6.5 X10^3/uL (2.0-7.7); Basophil# 0.08 X10^3/uL; Basophil% 0.8 % (0-1); Eosinophil# 0.43 X10^3/uL; Eosinophils% 4.2 % (0-5); Hemoglobin 14.9 g/dL (13.0-16.5); Lymphocyte # 2.25 X10^3/ul (0.83-4.51); Mean Corp Hgb Conc 33.9 g/dL (32-36); Mean Corpuscular Hgb 28.6 pg (27.0-32.0); Mean Corpuscular Volume 84.5 fL (80-94); Mean Platelet Vol. 11.3 fl (6.2-12.0); Monocyte# 0.92 X10^3/uL; NRBC Flagged by Analyzer 0 % (0-5); Neutrophil # 6.53 X10^3/uL (2.7-7.7); Neutrophil % 63.7 % (47-70); Platelet Count 221 K/mm3 (150-450); RBC Distribution Width CV 12.4 % (11.6-14.6); RBC Distribution Width SD 38.1 fl (35.1-43.9); Red Blood Count 5.21 M/mm3 (4.6-6.2); White Blood Count 10.2 K/mm3 (4.4-11.0)
[2021-02-22 21:24] LABS: Anion Gap 8 (5-15); BUN 15 mg/dL (7-18); BUN/Creat Ratio 15.8 RATIO (10-20); Calcium,Total 9.1 mg/dL (8.5-10.1); Chloride 103 mmol/L (98-107); Creatinine, Serum 0.95 mg/dL (0.70-1.30); EST Glomerular Filtration Rate 82 mL/min (>60); Est Glom Filt Rate - Afr Amer 99 mL/min (>60); Estimated Creatinine Clearance 72.61 ml/min; Glucose 196 mg/dL (74-106); Magnesium 1.8 mg/dL (1.6-2.6); Potassium 3.6 mmol/L (3.5-5.1); Sodium Level 135 mmol/L (136-145)
[2021-02-22 22:15] VITALS: BP 142/72; PULSE 76; RESP 19; O2SAT 93
== END 2021-02-22 22:16 | disposition home or self-care (01) ==
PROVIDERS: Emergency Provider Emergency Medicine; PCP Family Medicine
DX: I48.91 Unspecified atrial fibrillation (principal); R00.2 Palpitations; I45.10 Unspecified right bundle-branch block; Z87.891 Personal history of nicotine dependence; Z90.49 Acquired absence of other specified parts of digestive tract; Z79.01 Long term (current) use of anticoagulants; Z79.4 Long term (current) use of insulin; Z79.82 Long term (current) use of aspirin; Z79.899 Other long term (current) drug therapy; N40.0 Benign prostatic hyperplasia without lower urinary tract symptoms; E11.9 Type 2 diabetes mellitus without complications; E78.5 Hyperlipidemia, unspecified; I10 Essential (primary) hypertension; I25.10 Atherosclerotic heart disease of native coronary artery without angina pectoris
CPT/HCPCS: 71045; 80048; 83735; 84484; 85025; 93005; 99285; A4216

== ENCOUNTER → 2021-05-18 14:53 | Outpatient (CLI) | payer MEDICARE, SELFPAY ==
--- NOTE | 2021-05-18 15:03 | US_ITS ---
HISTORY: renal calc TECHNIQUE: Ultrasound examination of the kidneys and bladder with b-mode, duplex, and color doppler. Prostate gland also imaged. COMPARISON: None FINDINGS: # of images incl. paperwork: 86 Enlarged prostate gland impressing upon the floor of urinary bladder. Prostate gland measures 7.5 x 4.8 x 5.6 cm. Right Kidney: Is normal in size and shape The right kidney measures 13.4 x 7.8 x 6.2 cm with cortical thickness of 1.4 cm. There is no evidence of renal mass, shadowing stones or cyst. There is no right hydronephrosis. Left Kidney: Is normal in size and shape. The left kidney measures 13.7 x 6.9 x 6.6 cm with cortical thickness of 1.7 cm. There are 2 separate anechoic, exophytic cysts arising from lower pole left kidney, largest measuring 2.1 x 1.4 x 1.6 cm and smaller measuring 1.4 x 1.2 x 1.2 cm. No shadowing stones demonstrated. There is no left hydronephrosis. Bladder: Prevoid distended urinary bladder volume of 427 mL with significant postvoid residual of 398 mL. Right but not left ureteral jet visualized. Cluster of mobile hyperechoic and shadowing stones within the dependent bladder lumen measuring up to 1.8 cm diameter. US/Kidney and Bladder IMPRESSION: 1. Enlarged prostate gland with significant urinary bladder postvoid residual. 2. Urolithiasis but no obstructing nephrolithiasis demonstrated. 3. Couple small, anechoic exophytic cysts at lower pole left kidney. No additional follow-up of renal cysts recommended at this time, based on these images. at [id number] Reported and signed by: Jase Gongora MD Electronically Signed: Jase Gongroa MD at 7:56 EDT Tel , Service support ,
== END ==
PROVIDERS: PCP Family Medicine; Visit Provider Urology
DX: Z87.442 Personal history of urinary calculi (principal); Z12.5 Encounter for screening for malignant neoplasm of prostate
CPT/HCPCS: 76770

== ENCOUNTER → 2021-05-26 12:20 | Outpatient (CLI) | payer MEDICARE, SELFPAY ==
[2021-05-26 13:06] LABS: Hematocrit 45.8 % (40-54); Hemoglobin 14.8 g/dL (13.0-16.5); Mean Corp Hgb Conc 32.3 g/dL (32-36); Mean Corpuscular Hgb 27.9 pg (27.0-32.0); Mean Corpuscular Volume 86.3 fL (80-94); Mean Platelet Vol. 11.1 fl (6.2-12.0); Platelet Count 238 K/mm3 (150-450); RBC Distribution Width CV 12.9 % (11.6-14.6); RBC Distribution Width SD 40.4 fl (35.1-43.9); Red Blood Count 5.31 M/mm3 (4.6-6.2); White Blood Count 9.8 K/mm3 (4.4-11.0)
[2021-05-26 13:25] LABS: Anion Gap 5 (5-15); BUN 24 mg/dL (7-18); BUN/Creat Ratio 22.9 RATIO (10-20); Calcium,Total 8.9 mg/dL (8.5-10.1); Chloride 104 mmol/L (98-107); Creatinine, Serum 1.05 mg/dL (0.70-1.30); EST Glomerular Filtration Rate 73 mL/min (>60); Est Glom Filt Rate - Afr Amer 88 mL/min (>60); Glucose 209 mg/dL (74-106); Sodium Level 135 mmol/L (136-145)
== END ==
PROVIDERS: PCP Family Medicine; Referring Provider Urology; Visit Provider Urology
DX: Z03.818 Encounter for observation for suspected exposure to other biological agents ruled out (principal); Z01.812 Encounter for preprocedural laboratory examination
CPT/HCPCS: 36415; 80048; 85027; 87635; C9803; U0005; U0003

== ENCOUNTER 2021-07-29 09:34 | Day surgery (SDC) | payer MEDICARE, SELFPAY ==
--- NOTE | 2021-07-28 11:59 | EKG12_ITS ---
Test Reason : PREOP Blood Pressure : / mmHG Vent. Rate : 081 BPM Atrial Rate : 081 BPM P-R Int : 196 ms QRS Dur : 144 ms QT Int : 416 ms P-R-T Axes : 026 -77 045 degrees QTc Int : 483 ms Normal sinus rhythm Right bundle branch block Left anterior fascicular block Bifascicular block Abnormal ECG Confirmed by ALEXANDREA SAMUEL, REGAN ([id number]), fashion editor ENID CLINTON ([id number]) on 07/29/2021 6:49:31 AM Referred By: Tom Daley Confirmed By:REGAN LECHUGA MD
[2021-07-28 12:58] LABS: Hematocrit 43.4 % (40-54); Hemoglobin 14.7 g/dL (13.0-16.5); Mean Corp Hgb Conc 33.9 g/dL (32-36); Mean Corpuscular Hgb 28.3 pg (27.0-32.0); Mean Corpuscular Volume 83.6 fL (80-94); Mean Platelet Vol. 11.1 fl (6.2-12.0); Platelet Count 270 K/mm3 (150-450); RBC Distribution Width CV 13.2 % (11.6-14.6); RBC Distribution Width SD 40.7 fl (35.1-43.9); Red Blood Count 5.19 M/mm3 (4.6-6.2); White Blood Count 11.3 K/mm3 (4.4-11.0)
[2021-07-28 13:25] LABS: Anion Gap 9 (5-15); BUN 21 mg/dL (7-18); BUN/Creat Ratio 19.4 RATIO (10-20); Chloride 105 mmol/L (98-107); Creatinine, Serum 1.08 mg/dL (0.70-1.30); EST Glomerular Filtration Rate 70 mL/min (>60); Est Glom Filt Rate - Afr Amer 85 mL/min (>60); Estimated Creatinine Clearance 62.87 ml/min; Glucose 119 mg/dL (74-106); Potassium 4.3 mmol/L (3.5-5.1); Sodium Level 137 mmol/L (136-145)
[2021-07-28 13:26] LABS: Hemoglobin A1c 8.6 % (3.8-5.6)
[2021-07-29] VITALS (13 sets, daily range): BP systolic 117–161; BP diastolic 42–108; PULSE 62–92; RESP 15–18; TEMP 35.8–37.1; O2SAT 92–99; BMI 39.6
--- NOTE | 2021-07-29 | PROS_PTH ---
PATIENT: INGRIS BALBUENA LOC: [facility] [place] U#:[id number] AGE/SX: 76/M ROOM: RE07/29/[address]: Dr. Tom Daley MD : 1945 BED: DIS: 07/30/2021 SPEC #: [id number] RECD: 07/29/21 15:57 STATUS: GIORGIO HDZ #: [id number] CHELSI: 07/29/21 00:[address]: Tom Daley DEPT: SURGICAL PATHOLOGY RECD BY: Triston Dubose ENTERED: 08/01/21 08:57 SP TYPE: TURP OTHR DR: Dr. Jeff Subramanian MD Tissues: Prostate, NOS Procedures: Surgery Specimen Level V HEADER OPERATION: Cysto, TUR prostate, Olymp[employer] PRE-OP DIAGNOSIS: BPH, bladder stones TISSUE SUBMITTED: Prostate chips MICROSCOPIC DIAGNOSIS Prostate chips, TUR: Prostatic adenocarcinoma. Benign prostatic hyperplasia, glandular and stromal type. Acute and chronic inflammation. Fragments of stone, clinically bladder stones. See cancer summary in the comment section. SJ:rg 08/03/2021 COMMENT PROSTATE CANCER (TUR) SUMMARY: Procedure - transurethral resection of prostate (TURP) Specimen size ? acinar adenocarcinoma Histologic type ? grade group 1 (Ada score 3+3=6) Estimated percentage of prostatic tissue involved by tumor - <5% Number of positive chips ? 8 Number of chips involved - ~120 Periprostatic fat invasion ? not applicable Seminal vesicle invasion ? not applicable Lymphvascular invasion ? not identified Perineural invasion ? not identified Additional pathologic findings ? benign prostatic hyperplasia, glandular and stromal type. - Acute and chronic inflammation. - Fragments of stone, clinically bladder stones. Treatment effect ? no known presurgical therapy. The above summary is in compliance with [employer] [place] [employer] (CAP) Cancer Protocols Checklist and [place] Joint Committee on Cancer (AJCC), Staging Manual, 8th Ed. Immunohistochemistry ([id number]) supports the above diagnosis. Clinical correlation and appropriate follow up are necessary. Case has been reviewed in consultation with Dr. Christianson who concurs with the above diagnosis. IDC:AM MICROSCOPIC DESCRIPTION Slides are reviewed. GROSS DESCRIPTION Received is one container labeled with the patient's name and designated prostate chips. The specimen consists of multiple irregular fragments of pink-pratt, rubbery, soft tissue that in aggregate weigh 27.7 gm and measure in aggregate 7 x 7 x 3 cm. A few fragments of pratt-brown stones are also present. Jack Strip Assembler tissue is submitted in ten cassettes. / KAIN:eugene 08/01/21 TC:0 CPT: 31683
--- NOTE | 2021-07-29 | IMM_PTH ---
PATIENT: INGRIS BALBUENA LOC: [facility] [place] U#:[id number] AGE/SX: 76/M ROOM: RE07/29/[address]: Dr. Tom Daley MD : 1945 BED: DIS: 07/30/2021 SPEC #: [id number] RECD: 08/02/21 13:00 STATUS: GIORGIO REQ #: [id number] CHELSI: 07/29/21 00:[address]: Tom Daley DEPT: IMMUNOHISTOCHEMISTRY RECD BY: Neva Watts ENTERED: 08/02/21 13:01 SP TYPE: IMMUNO OTHR DR: Dr. Jeff Subramanian MD Tissues: Prostate, NOS Procedures: 34BE12 (add) P40 (add) 34BE12 (initial) PHYSICIAN & INSTITUTION [place] [id number] SPECIMEN INFORMATION: Tissue Source: Prostate chips Clinical Info: BPH, bladder stones Specimen Number: [id number] #3-6, 8 & 9 CPT code: 16974, 97538 x11 METHODOLOGY: Deparaffinized sections of prefer/formalin-fixed tissue or PAP/DQ stained slides are incubated with monoclonal/polyclonal antibodies/oligonucleotide probes. Localization is made via biotin free immunoperoxidase method. Appropriate controls are performed and reacted as expected. Results on target cell population are indicated in the following table: RESULTS: ANTIBODY / CLONE RESULT Block 3 P40 (BC28) negative 34BE12 (34BE12) negative Block 4 P40 (BC28) negative 34BE12 (34BE12) negative Block 5 P40 (BC28) negative 34BE12 (34BE12) negative Block 6 P40 (BC28) negative 34BE12 (34BE12) negative Block 8 P40 (BC28) negative 34BE12 (34BE12) negative Block 9 P40 (BC28) negative 34BE12 (34BE12) negative These tests were developed and their performance characteristics determined by [facility]. They may not have been cleared or approved by the U.S. Food and Drug Administration. The FDA has determined that such clearance or approval is not necessary. The above immunohistochemical/dualISH markers are ordered and reviewed by the Pathologist. INTERPRETATION: Prostate chips, TUR: Adenocarcinoma. KAIN:eugene 08/03/2021
[2021-07-29] MEDS: Lactated Ringers 1,000 ML 15 ML IV (10:10)
--- NOTE | 2021-07-29 11:38 | PCM.HP.STD ---
HPI - General HPI Narrative 76-year-old male with large prostate and bladder stones presents today for treatment of the bladder stones with the laser and a transurethral section of prostate [facility] Medical History (Updated 07/22/21 @ 11:42 by Ashley Swift) Atrial fibrillation with RVR (02/05/21) Back pain BPH (benign prostatic hyperplasia) Cardiology follow-up encounter Dietary restriction Enlarged prostate Essential (primary) hypertension Former smoker High cholesterol History of atrial fibrillation Hyperlipidemia Hypertension Injury of back Insulin dependent diabetes mellitus New onset atrial fibrillation (02/05/21) Nonobstructive atherosclerosis of coronary artery Obesity Paroxysmal atrial fibrillation Prostate disease Psoriasis Restless legs Right bundle branch 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 Shortness of breath on exertion Type 2 diabetes mellitus Wears glasses Wears hearing aid Home Medications metformin 1,000 mg PO BIDCM 04/21/15 [History Last Taken Unknown] simvastatin 40 mg PO QHS 04/21/15 [History Last Taken Unknown] Lantus Solostar U-100 Insulin 72 unit SUBCUT QPM 02/05/21 [History Last Taken Unknown] colestipol 1 g PO DAILY 02/05/21 [History Last Taken Unknown] insulin lispro [Humalog KwikPen Insulin] 4 unit SUBCUT TID 02/05/21 [History Last Taken Unknown] apixaban 5 mg tablet 5 mg PO BID #180 tab 02/22/21 [Rx Last Taken Unknown] aspirin 81 mg tablet,delayed release 81 mg PO DAILY #90 tab 02/22/21 [Rx Last Taken 07/22/21] carvedilol 25 mg tablet 25 mg PO BID #180 tab 02/22/21 [Rx Last Taken Unknown] losartan 100 mg-hydrochlorothiazide 12.5 mg tablet 1 tab PO DAILY tab 06/23/21 [History Last Taken Unknown] diltiazem HCl 120 mg capsule,extended release 24 hr 120 mg PO DAILY #90 cap 07/18/21 [Rx Last Taken Unknown] albuterol sulfate 1 inh INHALATION Q6H PRN 07/25/21 [History Last Taken Unknown] doxycycline monohydrate 100 mg PO BID 07/25/21 [History Last Taken Unknown] Allergy/AdvReac Type Severity Reaction Status Date / Time amoxicillin Allergy Rash Verified 07/22/21 11:11 Family History Sister Colon cancer Brother Diabetes Mother Diabetes Heart disease Cancer Father Heart disease Cancer Diabetes Surgical History (Updated 07/22/21 @ 11:42 by Ashley Swift) H/O hemorrhoidectomy H/O wrist surgery History of left heart catheterization (02/07/21) Hx of cholecystectomy Hx of umbilical hernia repair Status post surgical manipulation of ankle joint Social History household members: spouse Smoking Status: Former smoker alcohol intake: never substance use type: does not use Vital Signs Vital Signs Vital Signs: 07/29/21 10:10 Temperature 96.4 F L Temperature Source Temporal Pulse Rate 75 Respiratory Rate 18 Respiratory Pattern Normal Blood Pressure 150/74 H Blood Pressure Mean 99 Blood Pressure Source Monitor Blood Pressure Position Sitting Blood Pressure Location Right Arm Pulse Ox 96 Oxygen Delivery Method Room Air Weight Weight: 132.7 kg Body Mass Index (BMI) 39.6 Results Lab / Micro Data Result Diagrams: 07/28/21 12:19 07/28/21 12:19 Labs: Laboratory Results - last 24 hr 07/28/21 12:19: Sodium 137, Potassium 4.3, Chloride 105, Carbon Dioxide 23.0, Anion Gap 9, BUN 21 H, Creatinine 1.08, Estim Creat Clear Calc 62.87, Est GFR (MDRD) Af Amer 85, Est GFR (MDRD) Non-Af 70, BUN/Creatinine Ratio 19.4, Glucose 119 H, Calcium 9.0 07/28/21 12:19: Hemoglobin A1c 8.6 H 07/28/21 12:19: WBC 11.3 H, RBC 5.19, Hgb 14.7, Hct 43.4, MCV 83.6, MCH 28.3, MCHC 33.9, RDW Std Deviation 40.7, RDW Coeff of Lucia 13.2, Plt Count 270, MPV 11.1 Micro: Microbiology 07/28/21 12:40 Interface Orders SARS-CoV-2 Antigen (Rapid) - Final
--- NOTE | 2021-07-29 11:39 | PCM.DC ---
Discharge Instructions Diet Discharge Diet: No restrictions Activity Discharge Activity: Return to Normal Activity and May Not Drive (while taking narcotic pain medications.) Dressing / Incision Call your doctor if you observe: Fever of 101 or Higher Follow Up Care Please Follow Up With: Tom Daley MD When: Call [phone] for an appointment Test Results: Test results from this visit will be discussed in further detail at your follow-up appointment, if applicable. Discharge Plan Admission Primary Reason for Your Visit: turp , laser bladder stones Attending Provider: Tom Daley Primary Care Provider: Jeff Subramanian Instructions Patient Instructions: TURP Home Recovery Discharge Orders/Prescriptions Prescriptions: Continued carvedilol 25 mg tablet 25 mg PO BID Qty: 180 RF: 3 losartan-hydrochlorothiazide 100-12.5 mg tablet 1 tab PO DAILY RF: 0 simvastatin 40 MG tablet 40 mg PO QHS RF: 0 metformin 1,000 MG tablet 1,000 mg PO BIDCM RF: 0 Hold Instructions: Resume on 02/09/21. colestipol 1 gram Tablet 1 g PO DAILY RF: 0 insulin lispro [Humalog KwikPen Insulin] 100 unit/mL Insulin Pen 4 unit SUBCUT TID RF: 0 Lantus Solostar U-100 Insulin 100 unit/mL (3 mL) Insulin Pen 72 unit SUBCUT QPM RF: 0 doxycycline monohydrate 100 mg Capsule 100 mg PO BID RF: 0 albuterol sulfate 90 mcg/actuation Hfa Aerosol Inhaler 1 inh INHALATION Q6H PRN (Reason: SOB) RF: 0 diltiazem HCl 120 mg capsule,extended release 24hr 120 mg PO DAILY Qty: 90 RF: 3 Held Eliquis 5 mg tablet 5 mg PO BID Qty: 180 RF: 3 Hold Instructions: Resume on 08/12/21. aspirin 81 mg tablet,delayed release (DR/EC) 81 mg PO DAILY Qty: 90 RF: 3 Hold Instructions: Resume on 08/12/21. Discontinued finasteride 5 mg tablet 5 mg PO DAILY RF: 0 tamsulosin 0.4 MG capsule 0.4 mg PO DAILY Qty: 30 RF: 0 Referrals / Follow Up: Tom Daley MD [STAFF PHYSICIAN] - Jeff Subramanian MD [Primary Care Provider] - Disposition Disposition (needs filled in before D/C Order can be placed): Home, Self Care
[2021-07-29] MEDS: Lactated Ringers 1,000 ML 100 ML IV ×2 (12:16→15:27)
--- NOTE | 2021-07-29 12:54 | PCM.OPRPT ---
Report of Operation Date of Procedure: 07/29/21 Pre-Operative Diagnosis: bph with obstruction and bladder stone Post-Operative Diagnosis: same Surgery/Procedure Performed:: TurP and cystolithalopaxy Description of Surgical Findings:: In the preoperative setting I discussed with the patient how the surgery would be done with expect afterwards. We discussed how a prostate resection is done and we discussed the risk of the surgery including, bleeding, infection, retrograde ejaculation, changes with ejaculation or intercourse,. We discussed the possibility that the resection of the prostate may not alleviate his urinary symptoms. We discussed the small risk of developing scar tissue along the urethral channel and strictures. We also discussed the chance of the prostate could grow back and he may need further surgery or treatment in the future for prostate problems. Patient was taken back to the operating room, timeout procedure was performed, he was identified and marked and placed on the operating room table. He underwent general anesthesia. He was placed in dorsolithotomy position. Penis and testicles were prepped and draped in usual sterile fashion. The urethra and genitals were prepped and draped in usual sterile fashion. Went into the bladder using a 24 Montenegrin cystoscope. We used the laser bridge through the scope for continuous irrigation. He had a multitude of stones in the base of the bladder and largest stone measured about 21/2cm in size. The stone was were then removed from the bladder in small little pieces all the pieces were evacuated on the bladder. After all the stones were removed then the scope was removed there was minimal bleeding. Went into the bladder using the visual obturator with a resectoscope. Once inside the bladder identified the right and left ureteral orifice. I then identified the prostate and the anatomy of the prostate. I marked out the area of the sphincter and the verumontanum was identified. I then proceeded with the prostate resection first resected the median lobe. And then resected the right lobe of the prostate. Then to resect the left lobe of the prostate. I then resected the apical tissue of the prostate. Made sure that there was no injury to the sphincter or the verumontanum was still intact. At the end of the resection all the chips were Ellik out of the bladder. I then identified the left and right ureteral orifice and these were confirmed to be in good position and effluxing and not injured. The resectoscope was removed, a 22 Montenegrin catheter was placed into the bladder on continuous irrigation. And the urine was fairly light pink color and draining normally. He was taken back to the PACU in good condition. Surgeon: renu Type of Anesthesia: General Drains: 22fr [address] way Admit VTE Documentation VTE Present on Admission: No VTE Mechan Device Prophylaxis: SCD's VTE Pharm Prophylaxis ordered?: No
[2021-07-29 15:31] LABS: Bedside Glucose 94 mg/dL (70-110)
[2021-07-29 17:05] LABS: Bedside Glucose 94 mg/dL (70-110)
[2021-07-29] MEDS: Insulin Lispro 100 UNIT/ML INSULN.PEN SC (17:33)
[2021-07-29] MEDS: metFORMIN HCl 1,000 MG Tablet 1000 MG PO (17:33)
[2021-07-29] MEDS: Ciprofloxacin 500 MG Tablet PO (21:03)
[2021-07-29] MEDS: Carvedilol 25 MG Tablet PO (21:04)
[2021-07-29] MEDS: Doxycycline 100 MG CAPSULE PO (21:05)
[2021-07-29] MEDS: Atorvastatin Calcium 20 MG Tablet PO (21:05)
[2021-07-29 21:06] LABS: Bedside Glucose 113 mg/dL (70-110)
[2021-07-30 03:50] VITALS: BP 132/61; PULSE 84; RESP 15; TEMP 36.3; O2SAT 94
--- NOTE | 2021-07-30 04:21 | NURSING ---
This RN reviewed SN charting and agree with charting.
[2021-07-30 08:00] VITALS: BP 144/71; PULSE 86; RESP 18; TEMP 36.9; O2SAT 92
[2021-07-30] MEDS: dilTIAZem CD 120 MG Capsule PO (08:07)
[2021-07-30] MEDS: Carvedilol 25 MG Tablet PO (08:07)
[2021-07-30] MEDS: Ciprofloxacin 500 MG Tablet PO (08:07)
[2021-07-30] MEDS: Doxycycline 100 MG CAPSULE PO (08:08)
[2021-07-30] MEDS: metFORMIN HCl 1,000 MG Tablet 1000 MG PO (08:08)
[2021-07-30] MEDS: Losartan Potassium 100 MG Tablet PO (08:09)
[2021-07-30] MEDS: hydroCHLOROthiazide 12.5mg 12.5 MG PO (08:09)
[2021-07-30 08:36] LABS: Bedside Glucose 107 mg/dL (70-110)
[2021-07-30] MEDS: Insulin Lispro 100 UNIT/ML INSULN.PEN SC (09:33)
== END 2021-07-30 11:00 | disposition home or self-care (01) ==
LOC: SDC 09:34 → AC 11:36 → MS3 07-30 09:08 → AC 08-01 09:47 → MS3 08-01 09:47
PROVIDERS: Anesthesiology; PCP Family Medicine; Referring Provider Urology; Visit Provider Urology
PROC: (CPT 52317; principal; 2021-07-29 11:30)
DX: N40.1 Benign prostatic hyperplasia with lower urinary tract symptoms (principal); C61 Malignant neoplasm of prostate; N21.0 Calculus in bladder; N13.8 Other obstructive and reflux uropathy; I10 Essential (primary) hypertension; E78.00 Pure hypercholesterolemia, unspecified; E11.9 Type 2 diabetes mellitus without complications; I48.0 Paroxysmal atrial fibrillation; I25.10 Atherosclerotic heart disease of native coronary artery without angina pectoris; Z87.891 Personal history of nicotine dependence; E78.5 Hyperlipidemia, unspecified; G25.81 Restless legs syndrome; Z79.4 Long term (current) use of insulin; Z79.01 Long term (current) use of anticoagulants; Z79.82 Long term (current) use of aspirin; Z90.49 Acquired absence of other specified parts of digestive tract
CPT/HCPCS: 00914; 52317; 52601; 36415; 80048; 82962; 83036; 85027; 87426; 88305; 88307; 88341; 88342; 93005; C9803; J7120; J2405

== ENCOUNTER 2021-09-19 15:33 | Inpatient (IN) | payer MEDICARE, SELFPAY ==
[2021-09-19 15:34] VITALS: BP 130/89; PULSE 93; RESP 22; TEMP 35.6; O2SAT 93; BMI 40.0
[2021-09-19 16:46] LABS: Bedside Glucose 146 mg/dL (70-110)
--- NOTE | 2021-09-19 17:19 | ED.RN ---
REPORTED TO TRIAGE NURSE, URINATING BLOOD. HAS BEEN FOR A LITTLE WHILE. DENIES DIZZINESS. VS REMAINS STABLE
[2021-09-19 18:09] VITALS: BP 113/85; PULSE 96; RESP 23; O2SAT 96
--- NOTE | 2021-09-19 19:01 | EKG12_ITS ---
Test Reason : ABD PAIN Blood Pressure : / mmHG Vent. Rate : 094 BPM Atrial Rate : 094 BPM P-R Int : 184 ms QRS Dur : 142 ms QT Int : 390 ms P-R-T Axes : 012 -83 043 degrees QTc Int : 487 ms Sinus rhythm with occasional Premature ventricular complexes Right bundle branch block INFERIOR GA , AGE UNDETERMINED, CANNOT BE EXCLUDED Abnormal ECG Confirmed by ALEXANDREA SAMUEL, REGAN ([id number]), restaurant expeditor CARLOTA SUTTON ([id number]) on 09/20/2021 11:24:53 AM Referred By: SMITH Confirmed By:REGAN LECHUGA MD
--- NOTE | 2021-09-19 19:02 | CT_ITS ---
STUDY: CT ABDOMEN AND PELVIS WITH CONTRAST REASON FOR EXAM: Male, 76 years old. left sided abd pain RADIATION DOSAGE (If Supplied By Facility): CTDIvol = ( 21.99 ) mGy, DLP = ( 1357.77 ) mGycm TECHNIQUE: Transaxial images were obtained from the dome of the diaphragm to the symphysis pubis without oral contrast. IV 100mL Isovue-370 was administered. Sagittal and coronal images were reconstructed. Individualized dose optimization techniques were used for this CT. COMPARISON: CT of abdomen and pelvis dated November 18, 2019. Chest x-ray dated September 19, 2021 FINDINGS: A small irregular focus of consolidation is present in the posterior lateral aspect of the left lower lobe. Mild diffuse interstitial thickening and several additional infiltrates are seen throughout the remaining bilateral lung henderson. Some of this may represent chronic scarring. The lungs are hyperinflated with cystic emphysematous changes. A small 3.3 mm semisolid nodule is present in the posterior lateral aspect of the right right upper lobe, see image 1/137 Normal liver. Normal gallbladder and extrahepatic biliary system. Normal spleen. Normal pancreas. Normal bilateral adrenal glands. Normal right kidney. There is mild cortical atrophy of the left kidney, consistent with chronic medical renal disease. Several cysts of the left kidney are present which are benign and stable and do not require any additional evaluation. There is a small hiatal hernia. Normal small intestine. Normal colon. The appendix is visualized and appears normal. There is diffuse atherosclerotic calcification of the abdominal aorta, without a demonstrated aneurysm. Normal inferior vena cava. Normal retroperitoneum. There is mild concentric thickening of the wall of the bladder with trabeculation. No visualized bladder masses or stones. The trigone of the bladder and ureteral junction is mildly dilated as well. These are new findings when compared to the prior study. Previously seen small bladder stones are no longer present. Small bilateral fat-containing inguinal hernias reidentified. There are diffuse degenerative changes of the visualized lumbar spine. IMPRESSION: Left lower lobe pneumonic infiltrate 1. A small irregular focus of consolidation is present in the posterior lateral aspect of the left lower lobe. Mild diffuse interstitial thickening and several additional infiltrates are seen throughout the remaining bilateral lung henderson. Some of this may represent chronic scarring. The lungs are hyperinflated with cystic emphysematous changes. 2. There is mild concentric thickening of the wall of the bladder with trabeculation. No visualized bladder masses or stones. The trigone of the bladder and ureteral junction is mildly dilated as well. These are new findings when compared to the prior study. Previously seen small bladder stones are no longer present. Electronically Signed: Toni Kee MD at 22:22 EST , Service support , CT/Abdomen/Pelvis W IV Cont ONLY
--- NOTE | 2021-09-19 19:37 | EX.ED.DYSGE1 ---
HPI History of Present Illness Chief Complaint: General Illness Informant: patient Narrative Narrative: Patient is a 76-year-old male with history of atrial fibrillation, on chronic anticoagulation, BPH status post TURP, schizophrenia, diabetes mellitus, hypertension and hyperlipidemia presenting with left-sided abdominal pain. Patient states that started at 10 AM this morning. He describes it as sharp in nature. He denies any radiation. Is worse with movement or cough. He has noticed that his urine is been darker and he is concerned there is been blood in it for some time. He denies any blood clots or bright red blood in his urine. He has had some mild associated nausea but no vomiting. Denies any fever. Does feel short of breath in the sense that it hurts to take a deep breath. Has had a prior cholecystectomy. Has not had a bowel movement today and is not passing gas today. No other complaints at this time. Prior similar symptoms: No PFSH PFS Medical History Atrial fibrillation with RVR (02/05/21) Back pain BPH (benign prostatic hyperplasia) Cardiology follow-up encounter Dietary restriction Enlarged prostate Essential (primary) hypertension Former smoker High cholesterol History of atrial fibrillation Hyperlipidemia Hypertension Injury of back Insulin dependent diabetes mellitus New onset atrial fibrillation (02/05/21) Nonobstructive atherosclerosis of coronary artery Obesity Paroxysmal atrial fibrillation Prostate disease Psoriasis Restless legs Right bundle branch 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 Shortness of breath on exertion Type 2 diabetes mellitus Wears glasses Wears hearing aid Home Medications metformin 1,000 mg PO BIDCM 04/21/15 [History Last Taken Unknown] simvastatin 40 mg PO QHS 04/21/15 [History Last Taken Unknown] Lantus Solostar U-100 Insulin 72 unit SUBCUT QPM 02/05/21 [History Last Taken Unknown] colestipol 1 g PO DAILY 02/05/21 [History Last Taken Unknown] insulin lispro [Humalog KwikPen Insulin] 17 unit SUBCUT TID 02/05/21 [History Last Taken Unknown] apixaban 5 mg tablet 5 mg PO BID #180 tab 02/22/21 [Rx Last Taken Unknown] aspirin 81 mg tablet,delayed release 81 mg PO DAILY #90 tab 02/22/21 [Rx Last Taken 07/22/21] carvedilol 25 mg tablet 25 mg PO BID #180 tab 02/22/21 [Rx Last Taken Unknown] losartan 100 mg-hydrochlorothiazide 12.5 mg tablet 1 tab PO DAILY tab 06/23/21 [History Last Taken Unknown] diltiazem HCl 120 mg capsule,extended release 24 hr 120 mg PO DAILY #90 cap 07/18/21 [Rx Last Taken Unknown] albuterol sulfate 1 inh INHALATION Q6H PRN 07/25/21 [History Last Taken Unknown] benzonatate 100 - 200 mg PO TID 09/20/21 [History Last Taken Unknown] finasteride 5 mg PO DAILY 09/20/21 [History Last Taken Unknown] Allergy/AdvReac Type Severity Reaction Status Date / Time amoxicillin Allergy Rash Verified 09/19/21 15:36 Family History Sister Colon cancer Brother Diabetes Mother Diabetes Heart disease Cancer Father Heart disease Cancer Diabetes Surgical History H/O hemorrhoidectomy H/O wrist surgery History of left heart catheterization (02/07/21) Hx of cholecystectomy Hx of umbilical hernia repair Status post surgical manipulation of ankle joint Social History household members: spouse Smoking Status: Former smoker alcohol intake: never substance use type: does not use ROS ROS ED Constitutional Constitutional ED: Denies chills or fever(s) Eyes Eyes: Denies change in vision ENT ENT ED: Denies ear pain or rhinorrhea Cardiovascular Cardiovascular: Denies chest pain Respiratory/Chest Respiratory/Chest: Reports cough and dyspnea; Denies dyspnea on exertion or sputum Gastrointestinal Gastrointestinal: Reports abdominal pain, constipation and nausea; Denies diarrhea or vomiting Genitourinary Genitourinary ED: Reports hematuria; Denies dysuria Musculoskeletal Musculoskeletal: Denies arthralgias or myalgias Integumentary Denies rash Neurologic Neurologic: Denies headache(s) or weakness Psychiatric Psychiatric: Denies depression EXAM Physical Exam Const Vital Signs: 09/19/21 15:34 09/19/21 18:04 09/19/21 18:09 Temperature 96.1 F L Temperature Source Temporal Pulse Rate 93 96 Respiratory Rate 22 H 23 H Respiratory Effort Normal Respiratory Pattern Normal Blood Pressure 130/89 H 113/85 H Blood Pressure Mean 102 94 Pulse Ox 93 96 Oxygen Delivery Method Room Air Room Air Oxygen Flow Rate (L/min) 09/19/21 20:07 09/19/21 23:03 09/19/21 23:37 Temperature Temperature Source Pulse Rate 98 109 H Respiratory Rate 25 H 18 Respiratory Effort Respiratory Pattern Blood Pressure 156/79 H Blood Pressure Mean 104 Pulse Ox 92 94 94 Oxygen Delivery Method Room Air Nasal Cannula Oxygen Flow Rate (L/min) 2 Positive well nourished, well developed and obese General Appearance ED: well developed Nutritional Appearance: obese HEENT Reports moist mucous membranes Negative for trauma Eyes PERRL Neck no lymphadenopathy and supple Chest Wall inspection of chest normal Resp normal respiratory effort and clear to auscultation bilaterally Auscultation: Negative for wheezes Cardio regular rate, regular rhythm and no murmurs GI Inspection: abdominal distention Auscultation: hypoactive bowel sounds Palpation: soft and tender LLQ; Negative for guarding or rebound tenderness present Back/Spine no CVA tenderness Extremity normal to inspection General Extremety ED: Negative for edema or tenderness General Extremity: Negative for edema Neuro oriented x3 Sensorium / Orientation: alert Motor Exam: general weakness Psych mental status grossly normal Skin no rashes or lesions noted and no wounds MDM MDM MDM Narrative Medical decision making narrative: Patient evaluated for left-sided abdominal pain that started at 10 AM. He also has been having blood in his urine states has been going on since he had a TURP procedure. He notes his abdominal pain is worse with movement and coughing. Describes as sharp in nature. Is also worse to take a deep breath. He denies any fever or chills. The pain seems to be more pleuritic in nature and is not reproducible on abdominal exam. He is mildly tachypneic in the ER. His Covid test came back positive and his CT showed a left lower lobe pulmonic infiltrate as well as mild diffuse interstitial thickening and additional infiltrates. He does not have a leukocytosis or fever but given the significant pleuritic pain my concern is that he has infiltrate superimposed on COVID-19 infection. He is given a dose of Rocephin and azithromycin. He is also given Decadron. Patient takes his home insulin. He takes his evening medications. He does go into atrial fibrillation when the emergency room but he has known history of this. Patient is ambulated and desaturates to 88%. Patient be admitted for IV antibiotics for concern for bacterial pneumonia as well as viral pneumonia. He is hemodynamically stable in the emergency room. He is placed on 2 L of nasal cannula. Lab Data Labs: Laboratory Results - last 24 hr 09/19/21 09/19/21 09/19/21 16:42 19:45 19:45 WBC 7.1 RBC 5.12 Hgb 14.3 Hct 41.4 MCV 80.9 MCH 27.9 MCHC 34.5 RDW Std Deviation 39.6 RDW Coeff of Lucia 13.6 Plt Count 207 MPV 11.4 Immature Gran % (Auto) 0.400 Neut % (Auto) 67.4 Lymph % (Auto) 17.9 L [place] % (Auto) 13.2 H Eos % (Auto) 1.0 Baso % (Auto) 0.1 Absolute Neuts (auto) 4.8 Absolute Lymphs (auto) 1.27 Nucleated RBC % 0 Sodium 135 L Potassium 3.6 Chloride 102 Carbon Dioxide 23.0 Anion Gap 10 BUN 24 H Creatinine 1.07 Estim Creat Clear Calc 63.46 Est GFR (MDRD) Af Amer 86 Est GFR (MDRD) Non-Af 71 BUN/Creatinine Ratio 22.4 H Glucose 198 H Lactic Acid Calcium 8.7 Total Bilirubin 0.50 AST 22 ALT 33 Alkaline Phosphatase 91 Troponin I High Sens 11 Total Protein 7.6 Albumin 3.3 Globulin 4.3 H Albumin/Globulin Ratio 0.8 L Lipase 73 POC Glucose 146 H 09/19/21 09/20/21 19:45 00:03 WBC RBC Hgb Hct MCV MCH MCHC RDW Std Deviation RDW Coeff of Lucia Plt Count MPV Immature Gran % (Auto) Neut % (Auto) Lymph % (Auto) [place] % (Auto) Eos % (Auto) Baso % (Auto) Absolute Neuts (auto) Absolute Lymphs (auto) Nucleated RBC % Sodium Potassium Chloride Carbon Dioxide Anion Gap BUN Creatinine Estim Creat Clear Calc Est GFR (MDRD) Af Amer Est GFR (MDRD) Non-Af BUN/Creatinine Ratio Glucose Lactic Acid 1.6 Calcium Total Bilirubin AST ALT Alkaline Phosphatase Troponin I High Sens Total Protein Albumin Globulin Albumin/Globulin Ratio Lipase POC Glucose 163 H Radiography Chest X-Ray - ED: 1 View, Read by ED Physician, Read by Radiologist, Right Infiltrate and Left Infiltrate Diagnostic Testing: Clinical Impression(s) from Imaging Studies Abdomen/Pelvis CT 09/19/21 19:02 Chest X-Ray 09/19/21 20:55 IMPRESSION: Mild patchy pneumonic infiltrates of both lungs. Electronically Signed: Toni Kee MD at 22:02 EST , Service support , Rhythm Strip Rhythm Strip: Sinus Rhythm Rate: 94 Ectopy: PVC(s) EKG Initial EKG: Attestation: I personally reviewed and interpreted this EKG as follows: Interpretation: Sinus Rhythm, RBBB and LAFB Comments: Normal sinus rhythm at a rate of 94 with PVCs Bifascicular block Normal intervals No left axis deviation Normal ST segments Follow-up EKG: Attestation: I personally reviewed and interpreted this EKG as follows: Interpretation: Atrial Fibrillation Comments: Atrial fibrillation at a rate of 113 Left axis Right bundle branch block Prolonged QTC at [address] segments Discharge Plan Dx/Rx/DC Orders Clinical Impression: Acute respiratory failure with hypoxia, COVID-19 virus infection, Left lower lobe pneumonia, Pleuritic chest pain Disposition Disposition: Acute Care Hospital [facility]
[2021-09-19] MEDS: Morphine 4 MG/ML Syringe IV (19:49)
[2021-09-19] MEDS: Ondansetron 4 MG/2 ML Vial IV (19:50)
[2021-09-19 20:07] VITALS: BP 156/79; PULSE 98; RESP 25; O2SAT 92
[2021-09-19 20:14] LABS: Absolute Lymphocyte Count 1.27 X10^3/uL (0.83-4.51); Absolute Neutrophil Count 4.8 X10^3/uL (2.0-7.7); Basophil# 0.01 X10^3/uL; Basophil% 0.1 % (0-1); Eosinophil# 0.07 X10^3/uL; Hematocrit 41.4 % (40-54); Hemoglobin 14.3 g/dL (13.0-16.5); Lymphocyte # 1.27 X10^3/ul (0.83-4.51); Lymphocyte % 17.9 % (19-41); Mean Corp Hgb Conc 34.5 g/dL (32-36); Mean Corpuscular Hgb 27.9 pg (27.0-32.0); Mean Corpuscular Volume 80.9 fL (80-94); Mean Platelet Vol. 11.4 fl (6.2-12.0); Monocyte# 0.94 X10^3/uL; Monocyte% 13.2 % (0-10); NRBC Flagged by Analyzer 0 % (0-5); Neutrophil # 4.78 X10^3/uL (2.7-7.7); Neutrophil % 67.4 % (47-70); Platelet Count 207 K/mm3 (150-450); RBC Distribution Width CV 13.6 % (11.6-14.6); RBC Distribution Width SD 39.6 fl (35.1-43.9); Red Blood Count 5.12 M/mm3 (4.6-6.2); White Blood Count 7.1 K/mm3 (4.4-11.0)
[2021-09-19 20:37] LABS: ALB/GLOB Ratio 0.8 RATIO (0.9-2.4); AST(SGOT) 22 U/L (15-37); Alanine Aminotransfer ALT/SGPT 33 U/L (16-61); Albumin, Serum 3.3 g/dL (3.2-5.0); Alkaline Phosphatase 91 U/L (45-117); Anion Gap 10 (5-15); BUN 24 mg/dL (7-18); BUN/Creat Ratio 22.4 RATIO (10-20); Calcium,Total 8.7 mg/dL (8.5-10.1); Chloride 102 mmol/L (98-107); Creatinine, Serum 1.07 mg/dL (0.70-1.30); EST Glomerular Filtration Rate 71 mL/min (>60); Est Glom Filt Rate - Afr Amer 86 mL/min (>60); Estimated Creatinine Clearance 63.46 ml/min; Globulin 4.3 g/dL (2.2-4.2); Glucose 198 mg/dL (74-106); Lipase 73 U/L (73-393); Potassium 3.6 mmol/L (3.5-5.1); Protein, Total 7.6 g/dL (6.4-8.2); Sodium Level 135 mmol/L (136-145); Troponin-I HS 11 pg/mL (3.0-78.0)
--- NOTE | 2021-09-19 20:55 | RAD_ITS ---
STUDY: X-RAY CHEST REASON FOR EXAM: Male, 76 years old. left side abdominal pain and cough TECHNIQUE: Single AP portable view of the chest. COMPARISON: February FINDINGS: Mild patchy infiltrates are scattered throughout both lungs sparing the apices. The lungs are hyperinflated with cystic emphysematous changes. There is no demonstrated pleural abnormality. There is mild cardiac enlargement. Normal mediastinum and shashi. Normal visualized pulmonary arteries. Normal visualized aortic arch and descending thoracic aorta. Normal visualized thoracic spine. Normal visualized ribs, clavicles, and shoulders. There is no demonstrated abnormality of the visualized soft tissue structures of the upper abdomen. RAD/Chest 1 View (Portable) IMPRESSION: Mild patchy pneumonic infiltrates of both lungs. Electronically Signed: Toni Kee MD at 22:02 EST , Service support ,
[2021-09-19 20:57] LABS: Lactic Acid 1.6 mmol/L (0.4-1.9)
[2021-09-19 23:03] VITALS: PULSE 109; RESP 18; O2SAT 94
[2021-09-19 23:37] VITALS: O2SAT 94
[2021-09-20] VITALS (10 sets, daily range): BP systolic 127–154; BP diastolic 59–67; PULSE 79–94; RESP 16–19; TEMP 35.6–36.6; O2SAT 89–95; BMI 37.8
--- NOTE | 2021-09-20 | EKG12_ITS ---
Test Reason : REPEAT Blood Pressure : / mmHG Vent. Rate : 113 BPM Atrial Rate : 163 BPM P-R Int : 000 ms QRS Dur : 140 ms QT Int : 384 ms P-R-T Axes : 000 -88 041 degrees QTc Int : 526 ms Atrial fibrillation Left axis deviation Right bundle branch block Inferior infarct , age undetermined CANNOT BE EXCLUDED Abnormal ECG Confirmed by ROLAND SAMUEL, MIGUEL ANGEL ([id number]), newspaper managing editor CARLOTA SUTTON ([id number]) on 09/21/2021 11:37:07 AM Referred By: SMITH Confirmed By:MIGUEL ANGEL WATKINS MD
--- NOTE | 2021-09-20 00:06 | ED.RN ---
under the encouragement of ed dr pt has taken his home medications for his pill pack. pt glucose 163 prior to giving himself [address] informed and plan of care is to admit patient to hospital. maria eugenia olson rn [id number]
[2021-09-20 00:10] LABS: Bedside Glucose 163 mg/dL (70-110)
--- NOTE | 2021-09-20 00:39 | PCM.HP.STD ---
HPI - General General Date of Admission: 09/20/21 HPI Narrative INGRIS BALBUENA, is a 76 M with a significant history of schizophrenia and atrial fibrillation who presents to the emergency department with progressively worsening left upper quadrant pain that started on the same day of presentation. He described the pain as severe. The pain is nonradiating. The pain worsens with movements. There are no ameliorating factors to the pain. Also reportedly patient has had a Covid-like symptoms. Home Covid test 6 days ago was positive. Patient does not know when his Covid-like symptoms started. Further patient has generalized weakness. Nurse reported and documented that with ambulation patient oxygen saturation dropped to 88%. Patient required supplemental oxygenation. Also patient reports dark urine to ED doctor. Reportedly patient reported to ED nurse that he has been having bloody urination. History is limited by patient history of schizophrenia. [facility] Medical History Atrial fibrillation with RVR (02/05/21) Back pain BPH (benign prostatic hyperplasia) Cardiology follow-up encounter Dietary restriction Enlarged prostate Essential (primary) hypertension Former smoker High cholesterol History of atrial fibrillation Hyperlipidemia Hypertension Injury of back Insulin dependent diabetes mellitus New onset atrial fibrillation (02/05/21) Nonobstructive atherosclerosis of coronary artery Obesity Paroxysmal atrial fibrillation Prostate disease Psoriasis Restless legs Right bundle branch 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 Shortness of breath on exertion Type 2 diabetes mellitus Wears glasses Wears hearing aid Home Medications metformin 1,000 mg PO BIDCM 04/21/15 [History Last Taken Unknown] simvastatin 40 mg PO QHS 04/21/15 [History Last Taken Unknown] Lantus Solostar U-100 Insulin 72 unit SUBCUT QPM 02/05/21 [History Last Taken Unknown] colestipol 1 g PO DAILY 02/05/21 [History Last Taken Unknown] insulin lispro [Humalog KwikPen Insulin] 17 unit SUBCUT TID 02/05/21 [History Last Taken Unknown] apixaban 5 mg tablet 5 mg PO BID #180 tab 02/22/21 [Rx Last Taken Unknown] aspirin 81 mg tablet,delayed release 81 mg PO DAILY #90 tab 02/22/21 [Rx Last Taken 07/22/21] carvedilol 25 mg tablet 25 mg PO BID #180 tab 02/22/21 [Rx Last Taken Unknown] losartan 100 mg-hydrochlorothiazide 12.5 mg tablet 1 tab PO DAILY tab 06/23/21 [History Last Taken Unknown] diltiazem HCl 120 mg capsule,extended release 24 hr 120 mg PO DAILY #90 cap 07/18/21 [Rx Last Taken Unknown] albuterol sulfate 1 inh INHALATION Q6H PRN 07/25/21 [History Last Taken Unknown] benzonatate 100 - 200 mg PO TID 09/20/21 [History Last Taken Unknown] finasteride 5 mg PO DAILY 09/20/21 [History Last Taken Unknown] Allergy/AdvReac Type Severity Reaction Status Date / Time amoxicillin Allergy Rash Verified 09/19/21 15:36 Family History Sister Colon cancer Brother Diabetes Mother Diabetes Heart disease Cancer Father Heart disease Cancer Diabetes Surgical History H/O hemorrhoidectomy H/O wrist surgery History of left heart catheterization (02/07/21) Hx of cholecystectomy Hx of umbilical hernia repair Status post surgical manipulation of ankle joint Social History household members: spouse Smoking Status: Former smoker alcohol intake: never substance use type: does not use ROS Review of Systems ROS Unobtainable: due to mental condition Vital Signs Vital Signs Vital Signs: 09/19/21 15:34 09/19/21 18:04 09/19/21 18:09 Temperature 96.1 F L Temperature Source Temporal Pulse Rate 93 96 Respiratory Rate 22 H 23 H Respiratory Effort Normal Respiratory Pattern Normal Blood Pressure 130/89 H 113/85 H Blood Pressure Mean 102 94 Pulse Ox 93 96 Oxygen Delivery Method Room Air Room Air Oxygen Flow Rate (L/min) 09/19/21 20:07 09/19/21 23:03 09/19/21 23:37 Temperature Temperature Source Pulse Rate 98 109 H Respiratory Rate 25 H 18 Respiratory Effort Respiratory Pattern Blood Pressure 156/79 H Blood Pressure Mean 104 Pulse Ox 92 94 94 Oxygen Delivery Method Room Air Nasal Cannula Oxygen Flow Rate (L/min) 2 Weight Weight: 133.81 kg Body Mass Index (BMI) 40.0 Physical Exam Narrative Physical exam: General: Well-nourished, well-developed. Head: Normocephalic, atraumatic, no tenderness Eyes: PERRLA, EOMI ENT, no trauma, moist mucous membranes, no rhinorrhea Neck: Nontender, full range of motion, no spinal tenderness, deformities, step-off CVS: Tachycardia irregularly irregular rate and rhythm.. S1-S2 present. No murmur, gallop or rub. Respiratory : Rales. Chest wall nontender, no wheezing Abdomen: Soft, nontender, nondistended, normal bowel sounds, no masses : Deferred Back: Nontender, no CVA tenderness, no midline spinal tenderness, deformities, step-offs Extremities: Nontender full range of motion, no trauma Skin: Normal color, no trauma, abrasions Neuro: Alert, oriented, cranial nerves II through XII grossly intact. Psychiatry: Normal mood. Normal affect. Not depressed. Not anxious. Results Lab / Micro Data Result Diagrams: 09/19/21 19:45 09/19/21 19:45 Labs: Laboratory Results - last 24 hr 09/19/21 16:42: POC Glucose 146 H 09/19/21 19:45: WBC 7.1, RBC 5.12, Hgb 14.3, Hct 41.4, MCV 80.9, MCH 27.9, MCHC 34.5, RDW Std Deviation 39.6, RDW Coeff of Lucia 13.6, Plt Count 207, MPV 11.4, Immature Gran % (Auto) 0.400, Neut % (Auto) 67.4, Lymph % (Auto) 17.9 L, [place] % (Auto) 13.2 H, Eos % (Auto) 1.0, Baso % (Auto) 0.1, Absolute Neuts (auto) 4.8, Absolute Lymphs (auto) 1.27, Nucleated RBC % 0 09/19/21 19:45: Sodium 135 L, Potassium 3.6, Chloride 102, Carbon Dioxide 23.0, Anion Gap 10, BUN 24 H, Creatinine 1.07, Estim Creat Clear Calc 63.46, Est GFR (MDRD) Af Amer 86, Est GFR (MDRD) Non-Af 71, BUN/Creatinine Ratio 22.4 H, Glucose 198 H, Calcium 8.7, Total Bilirubin 0.50, AST 22, ALT 33, Alkaline Phosphatase 91, Troponin I High Sens 11, Total Protein 7.6, Albumin 3.3, Globulin 4.3 H, Albumin/Globulin Ratio 0.8 L, Lipase 73 09/19/21 19:45: Lactic Acid 1.6 09/20/21 00:03: POC Glucose 163 H Micro: Microbiology 09/19/21 19:43 Nasal Secretion SARS-CoV-2 Antigen (Rapid) - Final SARS-CoV-2 (COVID 19) Rhythm Strip Rhythm Strip: Sinus Rhythm Rate: 94 Ectopy: PVC(s) Radiology Impression Abdomen/Pelvis CT 09/19/21 19:02 Chest X-Ray 09/19/21 20:55 IMPRESSION: Mild patchy pneumonic infiltrates of both lungs. Electronically Signed: Toni Kee MD at 22:02 EST , Service support , Assessment & Plan Assessment/Plan (1) Pneumonia due to COVID-19 virus: (2) Left lower lobe pneumonia: QUALIFIERS: Pneumonia type: due to unspecified organism Qualified Code(s): J18.9 - Pneumonia, unspecified organism (3) Paroxysmal atrial fibrillation: PLAN: Acute hypoxemic respiratory failure secondary to SARS- COV 2 Oxygen saturation of 88% with ambulation reported and documented by nurse. Reported positive home Covid test 6 days ago and positive rapid antigen on presentation. Chest x-ray independently interpreted showed patchy infiltrates and I agree with radiologist interpretation. Decadron started emergency department and continued. Procalcitonin was ordered. Unclear when patient symptoms started. Remdesivir would not be ordered at this time. Tylenol for fever PRN tessalon perlmadie ordered Pneumonia Gram-positive, gram-negative or viral. Per radiologist reputation abdomen pelvis CT with small irregular focus of consolidation in posterior aspect of left lung. Mild diffuse interstitial thickening and several infiltrates in bilateral lungs. Review of CBC showed normal white count with lymphopenia and monocytosis. Azithromycin and ceftriaxone started emergency department and continued. Will check procalcitonin. Incentive parameter and chest physiotherapy ordered. Strep pneumonia and Legionella urine antigen ordered. Atrial fibrillation with RVR. Telemetric strip at the emergency department showed A. fib with RVR. Discussed with medical doctor who gave atenolol Cardizem bolus. Will continue home Cardizem p.o. Continue carvedilol. Will admit to progressive care unit on telemetry. Eliquis continued. Generalized weakness PT and OT to work with patient for strengthening balance training. Thickened bladder wall with trabeculations/dilated bladder and ureteral junction/hematuria After Covid symptoms resolve recommend follow-up with urology. In the past patient has seen urologist Review of labs did not show anemia. Will continue Eliquis and aspirin at this time. DVT prophylaxis: Not indicated since patient is on Eliquis Eliquis continued. Charges/Coding Visit Charges Inpatient E&M: 62742 Init Hosp L3
[2021-09-20] MEDS: Ceftriaxone 1 GM/50 ML BAG IV (00:54)
[2021-09-20] MEDS: dexAMETHasone 4 MG Tablet 6 MG PO ×2 (00:54→09:13)
[2021-09-20] MEDS: Morphine 4 MG/ML Syringe IV (00:55)
[2021-09-20] MEDS: dilTIAZem 25 MG/5 ML Vial 10 MG IV BOLUS (01:27)
--- NOTE | 2021-09-20 02:10 | PCS.PANDOC ---
PANDEMIC DOCUMENTATION INITIATED: Date: 09/20/21 Time: 0200
[2021-09-20 02:51] LABS: Bedside Glucose 200 mg/dL (70-110)
[2021-09-20 04:10] LABS: Mucous, Urine 0 SEEN /hpf (<or=2+)
[2021-09-20 04:14] LABS: Color, Urine Yellow (Yellow); Glucose, Dipstick Normal (Normal); Ketone-Dipstick 5 mg/dl (Negative); Leukocyte Esterase-Dipstick 500 /ul (Negative); Nitrite-Dipstick Negative (Negative); Occult Blood-Urine 250 /ul (Negative); Protein-Dipstick 100 mg/dl (Negative); Urine Bilirubin Dipstick Negative (Negative); Urine Clarity Sl. Cloudy (Clear); Urine Urobilinogen Normal (Normal)
[2021-09-20 04:38] LABS: Red Blood Cells-Urine 25-50 SEEN /hpf (0-5); White Blood Cells 50-100 SEEN /hpf (0-5)
[2021-09-20 04:39] LABS: Amorphous Sediment 2+; Bacteria 2+ /hpf (None Seen); Squamous Epithelial Cells - UA 0-5 SEEN /hpf (0-5)
[2021-09-20 07:53] LABS: Absolute Lymphocyte Count 0.61 X10^3/uL (0.83-4.51); Absolute Neutrophil Count 5.4 X10^3/uL (2.0-7.7); Basophil# 0.01 X10^3/uL; Basophil% 0.2 % (0-1); Eosinophil# 0.01 X10^3/uL; Eosinophils% 0.2 % (0-5); Hematocrit 42.9 % (40-54); Lymphocyte # 0.61 X10^3/ul (0.83-4.51); Lymphocyte % 9.7 % (19-41); Mean Corp Hgb Conc 32.6 g/dL (32-36); Mean Corpuscular Hgb 27.5 pg (27.0-32.0); Mean Corpuscular Volume 84.3 fL (80-94); Mean Platelet Vol. 11.3 fl (6.2-12.0); Monocyte# 0.26 X10^3/uL; Monocyte% 4.1 % (0-10); NRBC Flagged by Analyzer 0 % (0-5); Neutrophil # 5.41 X10^3/uL (2.7-7.7); Neutrophil % 85.5 % (47-70); Platelet Count 223 K/mm3 (150-450); RBC Distribution Width CV 13.7 % (11.6-14.6); RBC Distribution Width SD 42.5 fl (35.1-43.9); Red Blood Count 5.09 M/mm3 (4.6-6.2); White Blood Count 6.3 K/mm3 (4.4-11.0)
[2021-09-20 08:29] LABS: ALB/GLOB Ratio 0.8 RATIO (0.9-2.4); AST(SGOT) 23 U/L (15-37); Alanine Aminotransfer ALT/SGPT 34 U/L (16-61); Albumin, Serum 3.3 g/dL (3.2-5.0); Alkaline Phosphatase 91 U/L (45-117); Anion Gap 10 (5-15); BUN 27 mg/dL (7-18); BUN/Creat Ratio 25.5 RATIO (10-20); Calcium,Total 8.8 mg/dL (8.5-10.1); Chloride 101 mmol/L (98-107); Creatinine, Serum 1.06 mg/dL (0.70-1.30); EST Glomerular Filtration Rate 72 mL/min (>60); Est Glom Filt Rate - Afr Amer 87 mL/min (>60); Estimated Creatinine Clearance 65.96 ml/min; Globulin 4.3 g/dL (2.2-4.2); Glucose 199 mg/dL (74-106); Potassium 4.3 mmol/L (3.5-5.1); Protein, Total 7.6 g/dL (6.4-8.2); Sodium Level 135 mmol/L (136-145)
[2021-09-20 09:00] LABS: Procalcitonin < 0.04 ng/mL (0.00-0.09)
[2021-09-20] MEDS: Carvedilol 25 MG Tablet PO (09:12)
[2021-09-20] MEDS: Insulin Lispro 100 UNIT/ML INSULN.PEN 15 UNIT SC ×2 (09:12→10:55)
[2021-09-20] MEDS: dilTIAZem CD 120 MG Capsule PO (09:12)
[2021-09-20] MEDS: Aspirin E.C. 81 MG Tablet PO (09:12)
[2021-09-20 09:20] LABS: Bedside Glucose 238 mg/dL (70-110)
[2021-09-20] MEDS: Finasteride 5 MG Tablet PO (10:51)
[2021-09-20] MEDS: hydroCHLOROthiazide 12.5mg 12.5 MG PO (10:51)
[2021-09-20] MEDS: Losartan Potassium 100 MG Tablet PO (10:51)
[2021-09-20] MEDS: APIXABAN 5 MG TABLET PO (10:51)
--- NOTE | 2021-09-20 14:00 | CASEMGMT ---
NILDA BELLA assessment: Face to Face with patient for initial transition planning/care coordination assessment. RN SHAYNE introduced self and role at [facility], pt voices understanding and consents to assessment. Pt is sitting up in chair in no distress on 2L nc. Pt is A/Ox4 and answers all questions appropriately. Pt states took at home test 6 days prior to presentation. Pt states no concerns getting resources at discharge and states daughter is not symptomatic. Care providers, pharmacy, and demographics verified. Presentation: Left sided abd pain with cough Admitting dx: COVID PCP: Marilynn Specialists: Rosario cardio Preferred Pharmacy: [facility] Insurance: [employer] Prescription Benefit: [employer] Living Will/HPOA: Pt has LW/HPOA and is aware that they are on file at [facility]. Pt's daughter, Kaur Brooks, is HPOA. LNOK: Kaur Brooks, daughter/HPOA Living Arrangements: Pt lives alone in mobile home with 7 steps in and states no concerns at home. Pt is independent with ADL's. Transportation: Pt states drives self and states no transportation concerns. DME/HHC: Pt has the following DME: cane, walker, w/c x2, grab bars, and shower chair. Pt states no need for any further DME and states no preference for DME company, if qualifies for home oxygen at discharge. Pt states no hx of HHC or SNF. Pt states no concerns with going home at time of discharge and states is ready for d/c at this time. Dr. Yadira grullon, voices understanding. Pt is retired. Pt states does not smoke cigarettes or drink ETOH. Pt voices no further concerns/needs. CM to follow for any further discharge planning/needs. Advised pt to ask for CM if any further questions/concerns/needs arise, voices understanding. Pt Goal: Home Plan[place] NILDA BELLA
[2021-09-20 14:51] LABS: Bedside Glucose 329 mg/dL (70-110)
--- NOTE | 2021-09-20 15:24 | CASEMGMT ---
Per therapy, pt does not need any further therapy at discharge and per Deirdre MUNGUIA, pt does not qualify for home oxygen at discharge. Pt voices no further questions/concerns/needs. Imelda MUNGUIA CM
--- NOTE | 2021-09-20 15:28 | PCM.DC.SUM ---
Providers Date of Admission: 09/20/21 Primary Care Physician: Dr. Jeff Subramanian MD Reason For Visit: COVID Diagnosis Discharge Diagnosis (1) Pneumonia due to COVID-19 virus: Status: Acute Code(s): U07.1 - COVID-19; J12.82 - Pneumonia due to coronavirus disease 2019 (2) Left lower lobe pneumonia: Status: Acute Code(s): J18.9 - Pneumonia, unspecified organism Qualifiers: Pneumonia type: due to unspecified organism Qualified Code(s): J18.9 - Pneumonia, unspecified organism (3) Paroxysmal atrial fibrillation: Status: Acute Code(s): I48.0 - Paroxysmal atrial fibrillation Medications at Discharge Home Medications metformin 1,000 mg PO BIDCM 04/21/15 simvastatin 40 mg PO QHS 04/21/15 Lantus Solostar U-100 Insulin 72 unit SUBCUT QPM 02/05/21 colestipol 1 g PO DAILY 02/05/21 insulin lispro [Humalog KwikPen Insulin] 17 unit SUBCUT TID 02/05/21 apixaban 5 mg tablet 5 mg PO BID #180 tab 02/22/21 aspirin 81 mg tablet,delayed release 81 mg PO DAILY #90 tab 02/22/21 carvedilol 25 mg tablet 25 mg PO BID #180 tab 02/22/21 losartan 100 mg-hydrochlorothiazide 12.5 mg tablet 1 tab PO DAILY tab 06/23/21 diltiazem HCl 120 mg capsule,extended release 24 hr 120 mg PO DAILY #90 cap 07/18/21 albuterol sulfate 1 inh INHALATION Q6H PRN 07/25/21 benzonatate 100 - 200 mg PO TID 09/20/21 dexamethasone 6 mg PO DAILY 8 Days #12 tab 09/20/21 finasteride 5 mg PO DAILY 09/20/21 Hospital Course Operations None Procedures None Summary of Care Provided Minutes Spent on Discharge: 45 Hospital Course: 76-year-old who presented with abdominal pain and Covid-like symptoms. Patient tested positive for Covid 6 days ago. Was found to be saturating 88% on room air. Patient was admitted to PCU, managed on oxygen, started on dexamethasone. Chest x-ray showed bilateral infiltrates. Patient's was started on IV antibiotics. Procalcitonin was negative. Antibiotics were stopped. Patient also had A. fib with RVR on admission that improved with Cardizem bolus. Patient continued to be rate controlled throughout his hospital stay. Shortly after his admission, patient improved and was off oxygen. He was eager to be discharged. He was evaluated for home oxygen and did not qualify. He refused to stay on further for monitoring. He was encouraged to use his incentive spirometer and monitor his blood sugars on the dexamethasone. He was encouraged to continue to quarantine for total of 20 days. Physical Exam Narrative Physical exam: General: Alert, Oriented x3, Cooperative, No apparent distress, Well developed HEENT: Atraumatic Oral: Moist Mucosa Neck: Supple Lungs: Clear to auscultation Cardiovascular: HS I+II, regular, no murmurs Abdomen: Bowel Sounds Present, Soft, Non Tender Extremities: No edema Weight / BMI Weight Weight: 130.1 kg Body Mass Index (BMI) 37.8 ABG / Lab / Microbiology Data Result Diagrams: 09/20/21 07:00 09/20/21 07:00 Laboratory: Laboratory Results - last 24 hr 09/19/21 16:42: POC Glucose 146 H 09/19/21 19:45: WBC 7.1, RBC 5.12, Hgb 14.3, Hct 41.4, MCV 80.9, MCH 27.9, MCHC 34.5, RDW Std Deviation 39.6, RDW Coeff of Lucia 13.6, Plt Count 207, MPV 11.4, Immature Gran % (Auto) 0.400, Neut % (Auto) 67.4, Lymph % (Auto) 17.9 L, [place] % (Auto) 13.2 H, Eos % (Auto) 1.0, Baso % (Auto) 0.1, Absolute Neuts (auto) 4.8, Absolute Lymphs (auto) 1.27, Nucleated RBC % 0 09/19/21 19:45: Sodium 135 L, Potassium 3.6, Chloride 102, Carbon Dioxide 23.0, Anion Gap 10, BUN 24 H, Creatinine 1.07, Estim Creat Clear Calc 63.46, Est GFR (MDRD) Af Amer 86, Est GFR (MDRD) Non-Af 71, BUN/Creatinine Ratio 22.4 H, Glucose 198 H, Calcium 8.7, Total Bilirubin 0.50, AST 22, ALT 33, Alkaline Phosphatase 91, Troponin I High Sens 11, Total Protein 7.6, Albumin 3.3, Globulin 4.3 H, Albumin/Globulin Ratio 0.8 L, Lipase 73 09/19/21 19:45: Lactic Acid 1.6 09/20/21 00:03: POC Glucose 163 H 09/20/21 02:27: POC Glucose 200 H 09/20/21 03:45: Urine Color Yellow, Urine Clarity Sl. Cloudy, Urine pH 5.0, Ur Specific [place] 1.020, Urine Protein 100 H, Urine Glucose (UA) Normal, Urine Ketones 5 H, Urine Occult Blood 250 H, Urine Nitrite Negative, Urine Bilirubin Negative, Urine Urobilinogen Normal, Ur Leukocyte Esterase 500 H, Urine RBC 25-50 SEEN, Urine WBC 50-100 SEEN, Ur Squamous Epith Cells 0-5 SEEN, Amorphous Sediment 2+, Urine Bacteria 2+, Urine Mucus 0 SEEN 09/20/21 07:00: Procalcitonin < 0.04 09/20/21 07:00: WBC 6.3, RBC 5.09, Hgb 14.0, Hct 42.9, MCV 84.3, MCH 27.5, MCHC 32.6 D, RDW Std Deviation 42.5, RDW Coeff of Lucia 13.7, Plt Count 223, MPV 11.3, Immature Gran % (Auto) 0.300, Neut % (Auto) 85.5 H, Lymph % (Auto) 9.7 L, [place] % (Auto) 4.1, Eos % (Auto) 0.2, Baso % (Auto) 0.2, Absolute Neuts (auto) 5.4, Absolute Lymphs (auto) 0.61 L, Nucleated RBC % 0 09/20/21 07:00: Sodium 135 L, Potassium 4.3, Chloride 101, Carbon Dioxide 24.0, Anion Gap 10, BUN 27 H, Creatinine 1.06, Estim Creat Clear Calc 65.96, Est GFR (MDRD) Af Amer 87, Est GFR (MDRD) Non-Af 72, BUN/Creatinine Ratio 25.5 H, Glucose 199 H, Calcium 8.8, Total Bilirubin 0.30, AST 23, ALT 34, Alkaline Phosphatase 91, Total Protein 7.6, Albumin 3.3, Globulin 4.3 H, Albumin/Globulin Ratio 0.8 L 09/20/21 09:02: POC Glucose 238 H 09/20/21 10:49: POC Glucose 329 H Microbiology: Microbiology 09/20/21 03:45 Urine, Clean Catch Legionella Antigen - Final 09/20/21 03:45 Urine, Clean Catch Streptococcus pneumoniae Antigen (M - Final 09/19/21 19:43 Nasal Secretion SARS-CoV-2 Antigen (Rapid) - Final SARS-CoV-2 (COVID 19) Radiography Diagnostic Testing: Radiology Impression Abdomen/Pelvis CT 09/19/21 19:02 Chest X-Ray 09/19/21 20:55 IMPRESSION: Mild patchy pneumonic infiltrates of both lungs. Electronically Signed: Toni Kee MD at 22:02 EST , Service support , D/C Instructions Discharge Diet: Low fat / Low cholesterol, 1800 Calorie Control Diet and 2000 mg Sodium Diet Weight Bearing Status: Weight bearing as tolerated Meaningful Use Info Meaningful Use Diagnoses (Choose all that apply): None applicable Discharge Plan Admission Admit Date/Time: 09/20/21 00:21 Primary Reason for Your Visit: Acute hypoxic respiratory failure secondary to COVID-19 pneumonia Attending Provider: Elaine May Primary Care Provider: Jeff Subramanian Instructions Additional Instructions / Restrictions: Continue to use your incentive spirometer. Continue to remain active and eat healthy. Let your doctor know if you develop fever >101.3F or have progressive worsening shortness of breath. Follow-up with your primary care doctor. Complete your Decadron as prescribed. Continue to use your inhaler as needed for shortness of breath. Continue to quarantine for 20 days total from the start of your symptoms. Discharge Orders/Prescriptions Prescriptions: New dexamethasone 4 mg Tablet 6 mg PO DAILY 8 Days Qty: 12 RF: 0 Continued Eliquis 5 mg tablet 5 mg PO BID Qty: 180 RF: 3 Hold Instructions: Resume on 08/12/21. aspirin 81 mg tablet,delayed release (DR/EC) 81 mg PO DAILY Qty: 90 RF: 3 Hold Instructions: Resume on 08/12/21. carvedilol 25 mg tablet 25 mg PO BID Qty: 180 RF: 3 losartan-hydrochlorothiazide 100-12.5 mg tablet 1 tab PO DAILY RF: 0 simvastatin 40 MG tablet 40 mg PO QHS RF: 0 metformin 1,000 MG tablet 1,000 mg PO BIDCM RF: 0 Hold Instructions: Resume on 02/09/21. colestipol 1 gram Tablet 1 g PO DAILY RF: 0 insulin lispro [Humalog KwikPen Insulin] 100 unit/mL Insulin Pen 17 unit SUBCUT TID RF: 0 Lantus Solostar U-100 Insulin 100 unit/mL (3 mL) Insulin Pen 72 unit SUBCUT QPM RF: 0 albuterol sulfate 90 mcg/actuation Hfa Aerosol Inhaler 1 inh INHALATION Q6H PRN (Reason: SOB) RF: 0 benzonatate 100 mg capsule 100 - 200 mg PO TID RF: 0 finasteride 5 mg tablet 5 mg PO DAILY RF: 0 diltiazem HCl 120 mg capsule,extended release 24hr 120 mg PO DAILY Qty: 90 RF: 3 Referrals / Follow Up: Jeff Subramanian MD [Primary Care Provider] - Disposition Disposition (needs filled in before D/C Order can be placed): Home, Self Care Charges/Coding Visit Charges Inpatient E&M: 43411 Disch Hosp
[2021-09-20 15:45] LABS: Bedside Glucose 341 mg/dL (70-110)
== END 2021-09-20 16:32 | disposition home or self-care (01) | DRG 177 ==
LOC: ED 09-20 00:43 → PCU 09-20 02:36
PROVIDERS: Admitting Provider Hospitalist; Emergency Provider Emergency Medicine; PCP Family Medicine; Visit Provider Internal Medicine
DX: U07.1 COVID-19 (principal); J12.82 Pneumonia due to coronavirus disease 2019; J96.01 Acute respiratory failure with hypoxia; Z68.41 Body mass index [BMI] 40.0-44.9, adult; I48.0 Paroxysmal atrial fibrillation; F20.9 Schizophrenia, unspecified; E78.5 Hyperlipidemia, unspecified; I10 Essential (primary) hypertension; E11.9 Type 2 diabetes mellitus without complications; E66.9 Obesity, unspecified; E78.00 Pure hypercholesterolemia, unspecified; I25.10 Atherosclerotic heart disease of native coronary artery without angina pectoris; G25.81 Restless legs syndrome; N40.0 Benign prostatic hyperplasia without lower urinary tract symptoms; Z79.4 Long term (current) use of insulin; Z79.01 Long term (current) use of anticoagulants; Z80.0 Family history of malignant neoplasm of digestive organs; Z82.49 Family history of ischemic heart disease and other diseases of the circulatory system; Z88.0 Allergy status to penicillin; Z97.4 Presence of external hearing-aid; Z87.891 Personal history of nicotine dependence; Z83.3 Family history of diabetes mellitus; Z90.49 Acquired absence of other specified parts of digestive tract
CPT/HCPCS: 36415; 71045; 74177; 80053; 81001; 82962; 83605; 83690; 84145; 84484; 85025; 87426; 87449; 93005; 94667; 97162; 99251; 99283; J7030; Q9967; G0463; J2405

== ENCOUNTER 2021-10-09 21:38 | Emergency (ER) | payer MEDICARE, SELFPAY ==
[2021-10-09 21:39] VITALS: BP 96/69; PULSE 135; RESP 23; TEMP 36.1; O2SAT 95; BMI 40.8
[2021-10-09 21:46] VITALS: BP 119/56; PULSE 118; RESP 25; O2SAT 95
--- NOTE | 2021-10-09 21:49 | EKG12_ITS ---
Test Reason : PALPS Blood Pressure : / mmHG Vent. Rate : 094 BPM Atrial Rate : 094 BPM P-R Int : 184 ms QRS Dur : 136 ms QT Int : 374 ms P-R-T Axes : 026 -84 049 degrees QTc Int : 467 ms Normal sinus rhythm Right bundle branch block Left anterior fascicular block Bifascicular block Abnormal ECG Confirmed by ROLAND SAMUEL, MIGUEL ANGEL ([id number]), videotape editor ENID CLINTON ([id number]) on 10/11/2021 9:40:11 AM Referred By: RAMYA Confirmed By:MIGUEL ANGEL WATKINS MD
[2021-10-09 22:09] VITALS: PULSE 131
--- NOTE | 2021-10-09 22:10 | ED.VIS.CHEST ---
HPI History of Present Illness Chief Complaint: Palpitations Narrative Narrative: 76-year-old male presenting with palpitations which started this evening. Patient states he has a history of atrial fibrillation and is anticoagulated on Eliquis. He denies any chest pain. He states he is not short of breath. He has no lower extremity edema. Patient is unsure what he takes for rate control but notes that he does take his Eliquis as prescribed. Patient previously had COVID-19 and was diagnosed on the third of this month. Previously had hypoxic respiratory failure and is now coming from home for evaluation of palpitations. Patient denies any fever, chills, cough. [facility] Medical History Atrial fibrillation with RVR (02/05/21) Back pain BPH (benign prostatic hyperplasia) Cardiology follow-up encounter Dietary restriction Enlarged prostate Essential (primary) hypertension Former smoker High cholesterol History of atrial fibrillation Hyperlipidemia Hypertension Injury of back Insulin dependent diabetes mellitus New onset atrial fibrillation (02/05/21) Nonobstructive atherosclerosis of coronary artery Obesity Paroxysmal atrial fibrillation Prostate disease Psoriasis Restless legs Right bundle branch 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 Shortness of breath on exertion Type 2 diabetes mellitus Wears glasses Wears hearing aid Home Medications metformin 1,000 mg PO BIDCM 04/21/15 [History Last Taken Unknown] simvastatin 40 mg PO QHS 04/21/15 [History Last Taken Unknown] Lantus Solostar U-100 Insulin 72 unit SUBCUT QPM 02/05/21 [History Last Taken Unknown] colestipol 1 g PO DAILY 02/05/21 [History Last Taken Unknown] insulin lispro [Humalog KwikPen Insulin] 17 unit SUBCUT TID 02/05/21 [History Last Taken Unknown] apixaban 5 mg tablet 5 mg PO BID #180 tab 02/22/21 [Rx Last Taken Unknown] aspirin 81 mg tablet,delayed release 81 mg PO DAILY #90 tab 02/22/21 [Rx Last Taken 07/22/21] carvedilol 25 mg tablet 25 mg PO BID #180 tab 02/22/21 [Rx Last Taken Unknown] losartan 100 mg-hydrochlorothiazide 12.5 mg tablet 1 tab PO DAILY tab 06/23/21 [History Last Taken Unknown] diltiazem HCl 120 mg capsule,extended release 24 hr 120 mg PO DAILY #90 cap 07/18/21 [Rx Last Taken Unknown] albuterol sulfate 1 inh INHALATION Q6H PRN 07/25/21 [History Last Taken Unknown] benzonatate 100 - 200 mg PO TID 09/20/21 [History Last Taken Unknown] dexamethasone 6 mg PO DAILY 8 Days #12 tab 09/20/21 [Rx Last Taken Unknown] finasteride 5 mg PO DAILY 09/20/21 [History Last Taken Unknown] Allergy/AdvReac Type Severity Reaction Status Date / Time amoxicillin Allergy Rash Verified 10/09/21 21:43 Family History Sister Colon cancer Brother Diabetes Mother Diabetes Heart disease Cancer Father Heart disease Cancer Diabetes Surgical History H/O hemorrhoidectomy H/O wrist surgery History of left heart catheterization (02/07/21) Hx of cholecystectomy Hx of umbilical hernia repair Status post surgical manipulation of ankle joint Social History household members: spouse Smoking Status: Former smoker alcohol intake: never substance use type: does not use ROS ROS ED Constitutional Constitutional ED: Denies chills or fever(s) Eyes Eyes: Denies blurry vision or change in vision ENT ENT ED: Denies rhinorrhea or sore throat Cardiovascular Cardiovascular: Reports palpitations and racing heartbeat; Denies chest pain Respiratory/Chest Respiratory/Chest: Denies cough or dyspnea Gastrointestinal Gastrointestinal: Denies abdominal pain, nausea or vomiting Genitourinary Genitourinary ED: Denies dysuria or hematuria Musculoskeletal Musculoskeletal: Denies arthralgias or myalgias Integumentary Denies Abrasions or rash Neurologic Neurologic: Denies headache(s), paresthesias or weakness EXAM Physical Exam Const Vital Signs: 10/09/21 21:39 10/09/21 21:46 10/09/21 21:57 Temperature 97.0 F L Temperature Source Oral Pulse Rate 135 H 118 H Respiratory Rate 23 H 25 H Respiratory Effort Normal Non-Labored Blood Pressure 96/69 119/56 L Blood Pressure Mean 78 77 Pulse Ox 95 95 Oxygen Delivery Method Room Air Room Air 10/09/21 22:09 10/09/21 22:17 10/09/21 22:29 Temperature Temperature Source Pulse Rate 131 H 88 100 Respiratory Rate Respiratory Effort Blood Pressure Blood Pressure Mean Pulse Ox 94 Oxygen Delivery Method Room Air 10/09/21 23:00 10/10/21 00:00 10/10/21 01:25 Temperature Temperature Source Pulse Rate 95 101 H 95 Respiratory Rate 21 H 22 H 18 Respiratory Effort Blood Pressure 123/77 H 135/81 H 151/80 H Blood Pressure Mean 92 99 Pulse Ox 93 93 96 Oxygen Delivery Method Room Air Room Air Positive obese General Appearance ED: NAD; Negative for pallor Nutritional Appearance: obese HEENT Reports moist mucous membranes normocephalic and atraumatic Eyes PERRL and EOMs intact bilaterally General Eye ED: Negative for pale conjunctiva Resp normal respiratory effort Effort and Inspection: respiratory distress Cardio Rate: tachycardic Rhythm: abnormal rhythm irregularly irregular Extremity normal to inspection General Extremety ED: Negative for edema or tenderness General Extremity: Negative for edema Neuro oriented x3 Sensorium / Orientation: awake and alert Psych mental status grossly normal Skin General Skin Exam: Negative for jaundice or pallor MDM MDM MDM Narrative Medical decision making narrative: Patient presenting with palpitations. Has a history of atrial fibrillation and is anticoagulated. Patient denying any chest pain. Patient does not have shortness of breath either. He states he feels otherwise well. EKG is obtained and on my interpretation his initial EKG looks like a normal sinus rhythm with right bundle branch block at a rate of 94 bpm. Chest x-ray on my interpretation shows patchy groundglass opacities however patient recently had COVID-19 pneumonia. High-sensitivity troponin is initially 14 and delta troponin is 13. I do believe this rules out ACS. D-dimer was not checked because patient is anticoagulated and I have low suspicion for PE. Patient is not hypoxic tachycardic or tachypneic currently. Renal function and electrolytes are normal. Magnesium is normal. Patient was given Cardizem because his initial heart rate was 135 and his repeat EKG shows a sinus rhythm with a ventricular rate of 90 bpm with PACs. I reviewed the EKGs with Dr. Hodge and he states that he believes this is a sinus rhythm and he did not recommend any medication changes. 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 Brent arreguin. Patient given return precautions. Impression: 1. Palpitations 2. History of A. fib 3. History of anticoagulation. 4. History of COVID-19 Lab Data Attestation: I reviewed the patient's lab results. Labs: Laboratory Results - last 24 hr 10/09/21 10/09/21 10/09/21 21:22 21:22 21:22 WBC 10.2 RBC 5.27 Hgb 14.3 Hct 44.0 MCV 83.5 MCH 27.1 MCHC 32.5 RDW Std Deviation 43.3 RDW Coeff of Lucia 14.5 Plt Count 184 MPV 11.7 Immature Gran % (Auto) 0.400 Neut % (Auto) 66.0 Lymph % (Auto) 20.9 [place] % (Auto) 9.5 Eos % (Auto) 2.9 Baso % (Auto) 0.3 Absolute Neuts (auto) 6.7 Absolute Lymphs (auto) 2.13 Nucleated RBC % 0 Sodium 137 Potassium 3.9 Chloride 106 Carbon Dioxide 22.0 Anion Gap 9 BUN 25 H Creatinine 1.21 Estim Creat Clear Calc 56.12 Est GFR (MDRD) Af Amer 75 Est GFR (MDRD) Non-Af 62 BUN/Creatinine Ratio 20.7 H Glucose 167 H Calcium 9.1 Magnesium Troponin I High Sens 14 B-Natriuretic Peptide 92.1 10/09/21 10/10/21 21:22 00:00 WBC RBC Hgb Hct MCV MCH MCHC RDW Std Deviation RDW Coeff of Lucia Plt Count MPV Immature Gran % (Auto) Neut % (Auto) Lymph % (Auto) [place] % (Auto) Eos % (Auto) Baso % (Auto) Absolute Neuts (auto) Absolute Lymphs (auto) Nucleated RBC % Sodium Potassium Chloride Carbon Dioxide Anion Gap BUN Creatinine Estim Creat Clear Calc Est GFR (MDRD) Af Amer Est GFR (MDRD) Non-Af BUN/Creatinine Ratio Glucose Calcium Magnesium 1.7 Troponin I High Sens 13 B-Natriuretic Peptide Radiography Diagnostic Testing: Clinical Impression(s) from Imaging Studies Chest X-Ray 10/09/21 22:19 IMPRESSION: Patchy ground glass opacities involving multiple lobes bilaterally. Consider pneumonia in the appropriate clinical setting. Electronically Signed: Mani Mujica MD at 22:57 EST Tel , Service support , Discharge Plan Triage Chief Complaint: Palpitations ED Provider: Tre Johnosn Dx/Rx/DC Orders Instructions: ED AFIB Prescriptions: No Action Eliquis 5 mg tablet 5 mg PO BID Qty: 180 RF: 3 Hold Instructions: Resume on 08/12/21. aspirin 81 mg tablet,delayed release (DR/EC) 81 mg PO DAILY Qty: 90 RF: 3 Hold Instructions: Resume on 08/12/21. carvedilol 25 mg tablet 25 mg PO BID Qty: 180 RF: 3 losartan-hydrochlorothiazide 100-12.5 mg tablet 1 tab PO DAILY RF: 0 simvastatin 40 MG tablet 40 mg PO QHS RF: 0 metformin 1,000 MG tablet 1,000 mg PO BIDCM RF: 0 Hold Instructions: Resume on 02/09/21. colestipol 1 gram Tablet 1 g PO DAILY RF: 0 insulin lispro [Humalog KwikPen Insulin] 100 unit/mL Insulin Pen 17 unit SUBCUT TID RF: 0 Lantus Solostar U-100 Insulin 100 unit/mL (3 mL) Insulin Pen 72 unit SUBCUT QPM RF: 0 albuterol sulfate 90 mcg/actuation Hfa Aerosol Inhaler 1 inh INHALATION Q6H PRN (Reason: SOB) RF: 0 benzonatate 100 mg capsule 100 - 200 mg PO TID RF: 0 finasteride 5 mg tablet 5 mg PO DAILY RF: 0 dexamethasone 4 mg Tablet 6 mg PO DAILY 8 Days Qty: 12 RF: 0 diltiazem HCl 120 mg capsule,extended release 24hr 120 mg PO DAILY Qty: 90 RF: 3 Primary Care Provider: Jeff Subramanian Referrals: Devante Ponce MD [STAFF PHYSICIAN] - As soon as possible Jeff Subramanian MD [Primary Care Provider] - Disposition Disposition: Home, Self Care
[2021-10-09] MEDS: dilTIAZem 25 MG/5 ML Vial 20 MG IV BOLUS (22:14)
[2021-10-09 22:17] VITALS: PULSE 88; O2SAT 94
[2021-10-09 22:18] LABS: Absolute Lymphocyte Count 2.13 X10^3/uL (0.83-4.51); Absolute Neutrophil Count 6.7 X10^3/uL (2.0-7.7); Basophil# 0.03 X10^3/uL; Basophil% 0.3 % (0-1); Eosinophils% 2.9 % (0-5); Hemoglobin 14.3 g/dL (13.0-16.5); Lymphocyte # 2.13 X10^3/ul (0.83-4.51); Lymphocyte % 20.9 % (19-41); Mean Corp Hgb Conc 32.5 g/dL (32-36); Mean Corpuscular Hgb 27.1 pg (27.0-32.0); Mean Corpuscular Volume 83.5 fL (80-94); Mean Platelet Vol. 11.7 fl (6.2-12.0); Monocyte# 0.97 X10^3/uL; Monocyte% 9.5 % (0-10); NRBC Flagged by Analyzer 0 % (0-5); Neutrophil # 6.71 X10^3/uL (2.7-7.7); Platelet Count 184 K/mm3 (150-450); RBC Distribution Width CV 14.5 % (11.6-14.6); RBC Distribution Width SD 43.3 fl (35.1-43.9); Red Blood Count 5.27 M/mm3 (4.6-6.2); White Blood Count 10.2 K/mm3 (4.4-11.0)
--- NOTE | 2021-10-09 22:19 | RAD_ITS ---
EXAM: XR CHEST, 1 VIEW CLINICAL INDICATION: chest pain TECHNIQUE: Frontal view of the chest. This report was created using [employer] report generation technology. COMPARISON: 09/19/2021 FINDINGS: LUNGS AND PLEURAL SPACES: Patchy ground glass opacities involving multiple lobes bilaterally. Consider pneumonia in the appropriate clinical setting. Subsegmental atelectasis and/or scarring at the lung bases. Age-indeterminate bronchitis suggested. No pneumothorax. No effusion. HEART: Unremarkable. Cardiac silhouette not enlarged. MEDIASTINUM: Central airways and mediastinal contour are unremarkable. BONES/JOINTS: Degenerative changes of the spine. SOFT TISSUES: Unremarkable. RAD/Chest 1 View (Portable) IMPRESSION: Patchy ground glass opacities involving multiple lobes bilaterally. Consider pneumonia in the appropriate clinical setting. Electronically Signed: Mani Mujica MD at 22:57 EST Tel , Service support ,
[2021-10-09 22:29] VITALS: PULSE 100
[2021-10-09 22:33] LABS: Anion Gap 9 (5-15); BUN 25 mg/dL (7-18); BUN/Creat Ratio 20.7 RATIO (10-20); Calcium,Total 9.1 mg/dL (8.5-10.1); Chloride 106 mmol/L (98-107); Creatinine, Serum 1.21 mg/dL (0.70-1.30); EST Glomerular Filtration Rate 62 mL/min (>60); Est Glom Filt Rate - Afr Amer 75 mL/min (>60); Estimated Creatinine Clearance 56.12 ml/min; Glucose 167 mg/dL (74-106); Potassium 3.9 mmol/L (3.5-5.1); Sodium Level 137 mmol/L (136-145); Troponin-I HS 14 pg/mL (3.0-78.0)
[2021-10-09 22:44] LABS: BNP,B-Type NATRIURETIC PEPTIDE 92.1 pg/mL (0-100)
[2021-10-09 22:57] LABS: Magnesium 1.7 mg/dL (1.6-2.6)
[2021-10-09 23:00] VITALS: BP 123/77; PULSE 95; RESP 21; O2SAT 93
--- NOTE | 2021-10-09 23:44 | EKG12_ITS ---
Test Reason : REPEAT Blood Pressure : / mmHG Vent. Rate : 090 BPM Atrial Rate : 090 BPM P-R Int : 166 ms QRS Dur : 136 ms QT Int : 422 ms P-R-T Axes : 050 -82 074 degrees QTc Int : 516 ms Sinus rhythm with Premature atrial complexes Right bundle branch block Left anterior fascicular block Bifascicular block Abnormal ECG Confirmed by ROLAND SAMUEL, MIGUEL ANGEL ([id number]), assistant editor ENID CLINTON ([id number]) on 10/11/2021 9:37:10 AM Referred By: CHAO Confirmed By:MIGUEL ANGEL WATKINS MD
[2021-10-10] VITALS: BP 135/81; PULSE 101; RESP 22; O2SAT 93
[2021-10-10 00:15] LABS: Troponin-I HS 13 pg/mL (3.0-78.0)
[2021-10-10 01:25] VITALS: BP 151/80; PULSE 95; RESP 18; O2SAT 96
== END 2021-10-10 01:36 | disposition home or self-care (01) ==
PROVIDERS: Emergency Provider Student in an Organized Health Care Education/Training Program; PCP Family Medicine; Visit Provider Student in an Organized Health Care Education/Training Program
DX: R00.2 Palpitations (principal); I48.0 Paroxysmal atrial fibrillation; Z68.41 Body mass index [BMI] 40.0-44.9, adult; Z79.4 Long term (current) use of insulin; E11.9 Type 2 diabetes mellitus without complications; L40.9 Psoriasis, unspecified; E78.5 Hyperlipidemia, unspecified; I10 Essential (primary) hypertension; I25.10 Atherosclerotic heart disease of native coronary artery without angina pectoris; Z87.891 Personal history of nicotine dependence; E78.00 Pure hypercholesterolemia, unspecified; N40.0 Benign prostatic hyperplasia without lower urinary tract symptoms; G25.81 Restless legs syndrome; E66.9 Obesity, unspecified; Z79.01 Long term (current) use of anticoagulants; Z79.899 Other long term (current) drug therapy; Z79.84 Long term (current) use of oral hypoglycemic drugs; Z79.82 Long term (current) use of aspirin; Z86.16 Personal history of COVID-19; I49.1 Atrial premature depolarization
CPT/HCPCS: 71045; 80048; 83735; 83880; 84484; 85025; 93005; 99285

== ENCOUNTER 2021-11-09 09:19 | Outpatient (CLI) | payer MEDICARE, SELFPAY ==
--- NOTE | 2021-11-09 13:23 | PFT ---
INTRODUCTION: The patient is a 76-year-old male that presents for pulmonary function studies secondary to a diagnosis of shortness of breath. Respiratory therapy reported good patient effort. Bronchodilators were used during testing. INTERPRETATION: Forced expiration spirometry demonstrates no evidence of a large airways obstructive ventilatory defect. There was no significant response to aerosolized bronchodilators. Spirograms are of good quality and plateau normally. Body plethysmography was performed and revealed a decreased TLC to 5.37 L, 75% of predicted, indicative of a mild restrictive ventilatory impairment. Diffusing capacity by single breath CO was within normal limits. IMPRESSION: Isolated mild restrictive ventilatory impairment, likely secondary to body habitus.
== END 2021-11-09 23:59 | disposition home or self-care (01) ==
LOC: PSN 09:20
PROVIDERS: PCP Family Medicine; Referring Provider Internal Medicine Critical Care Medicine; Visit Provider Internal Medicine Critical Care Medicine
DX: R06.02 Shortness of breath (principal)
CPT/HCPCS: 94060; 94726; 94729

== ENCOUNTER 2021-11-10 12:52 | Outpatient (CLI) | payer MEDICARE, SELFPAY ==
[2021-11-10 13:18] VITALS: PULSE 81; PULSE 84; PULSE 87; PULSE 88; PULSE 89; PULSE 93; PULSE 98; O2SAT 90; O2SAT 91; O2SAT 93; O2SAT 94; O2SAT 96
--- NOTE | 2021-11-11 10:07 | WT_ITS ---
PSN 6 Minute Walk Test 6 Minute Walk Test 6 Minute Walk Test: 6 Minute Walk Test PSN:6-Minute Walk Test Start: 11/10/21 13:17 Freq: Status: Active Protocol: RESP.6MINW Document 11/10/21 13:18 REPLACED BY [facility] (Rec: 11/10/21 13:22 REPLACED BY [facility] [id number]) 6 Minute Walk Test Date Performed 11/10/21 Time Performed 13:00 Height 6 ft 1 in Weight: 135.624 kg Weight in Pounds 299.[address]: Marvin Oliva Assistive device used: None Pre-test Oxygen Delivery Method Room Air Pulse Ox (%) 94 Pulse Rate (60-100 beats/min) 81 Dyspnea Bruce Scale (0-10) 0 1st minute Oxygen Delivery Method Room Air Pulse Ox (%) 93 Pulse Rate (60-100 beats/min) 84 Dyspnea Bruce Scale (0-10) 2 Number of Rests Taken 0 Reported Symptoms Increased Work of Breathing 2nd minute Oxygen Delivery Method Room Air Pulse Ox (%) 90 Pulse Rate (60-100 beats/min) 89 Dyspnea Bruce Scale (0-10) 3 Number of Rests Taken 1 Reported Symptoms Increased Work of Breathing 3rd minute Oxygen Delivery Method Room Air Pulse Ox (%) 91 Pulse Rate (60-100 beats/min) 87 Dyspnea Bruce Scale (0-10) 3 Number of Rests Taken 0 Reported Symptoms Increased Work of Breathing 4th minute Oxygen Delivery Method Room Air Pulse Ox (%) 94 Pulse Rate (60-100 beats/min) 88 Dyspnea Bruce Scale (0-10) 3 Number of Rests Taken 0 Reported Symptoms Increased Work of Breathing 5th minute Oxygen Delivery Method Room Air Pulse Ox (%) 94 Pulse Rate (60-100 beats/min) 93 Dyspnea Bruce Scale (0-10) 3 Number of Rests Taken 0 Reported Symptoms Increased Work of Breathing 6th minute Oxygen Delivery Method Room Air Pulse Ox (%) 93 Pulse Rate (60-100 beats/min) 98 Dyspnea Bruce Scale (0-10) 3 Number of Rests Taken 0 Reported Symptoms Increased Work of Breathing Post-test Oxygen Delivery Method Room Air Pulse Ox (%) 96 Pulse Rate (60-100 beats/min) 87 Dyspnea Bruce Scale (0-10) 1 Full Laps Walked 14 Partial Lap, Number of Tiles Walked 0 Total Distance Walked (ft) 826 Interpretation Interpretation: The patient ambulated 826 feet over the course of 6 minutes beginning on room air without assistive devices. Pretesting oxygen saturation was noted to be 94% on room air. With ambulation, the dylon oxygen saturation was 90%. This represents a significant exertional oxygen desaturation. Recommendations Recommendations: There is no indication for the use of supplemental oxygen at this time. However, close interval follow-up is recommended, given the degree of oxygen desaturation noted during this study.
== END 2021-11-10 23:59 | disposition home or self-care (01) ==
LOC: PSN 12:54
PROVIDERS: PCP Family Medicine; Referring Provider Internal Medicine Critical Care Medicine; Visit Provider Internal Medicine Critical Care Medicine
DX: R06.02 Shortness of breath (principal)
CPT/HCPCS: 94618

== ENCOUNTER → 2022-02-07 | Outpatient (CLI) | payer MEDICARE, SELFPAY ==
[2022-02-07 08:55] LABS: Anion Gap 7 (5-15); BUN 18 mg/dL (7-18); BUN/Creat Ratio 16.8 RATIO (10-20); Calcium,Total 8.8 mg/dL (8.5-10.1); Chloride 104 mmol/L (98-107); Creatinine, Serum 1.07 mg/dL (0.70-1.30); EST Glomerular Filtration Rate 71 mL/min (>60); Est Glom Filt Rate - Afr Amer 86 mL/min (>60); Glucose 197 mg/dL (74-106); Potassium 3.9 mmol/L (3.5-5.1); Sodium Level 136 mmol/L (136-145)
== END | disposition home or self-care (01) ==
LOC: LAB 08:08
PROVIDERS: PCP Family Medicine; Referring Provider Nurse Practitioner Family; Visit Provider Nurse Practitioner Family
DX: R06.00 Dyspnea, unspecified (principal); I48.0 Paroxysmal atrial fibrillation; I10 Essential (primary) hypertension
CPT/HCPCS: 36415; 80048

== ENCOUNTER 2022-04-08 15:01 | Emergency (ER) | payer MEDICARE, SELFPAY ==
[2022-04-08] VITALS (8 sets, daily range): BP systolic 106–154; BP diastolic 54–77; PULSE 74–78; RESP 15–21; TEMP 36.6; O2SAT 96–98; BMI 39.8
--- NOTE | 2022-04-08 15:29 | EKG12_ITS ---
Test Reason : cp Blood Pressure : / mmHG Vent. Rate : 076 BPM Atrial Rate : 076 BPM P-R Int : 248 ms QRS Dur : 166 ms QT Int : 432 ms P-R-T Axes : 002 -83 041 degrees QTc Int : 486 ms Sinus rhythm with 1st degree A-V block Right bundle branch block Left anterior fascicular block Bifascicular block Abnormal ECG Confirmed by ROLAND SAMUEL, MIGUEL ANGEL ([id number]), script editor ENID CLINTON ([id number]) on 04/11/2022 9:27:21 AM Referred By: Confirmed By:MIGUEL ANGEL WATKINS MD
--- NOTE | 2022-04-08 15:30 | ED.VIS.CHEST ---
HPI History of Present Illness Chief Complaint: Chest Pain Informant: patient Onset/Context/Timing Onset: Hours (1.5) Activity at onset: sudden, onset and rest Timing: Continuous Quality: Positive for Pain Location: Left Parasternal Current Severity: Moderate Maximum Severity: Moderate Worsened By: Nothing; Not Worsened By Movement of Arm, Movement of Torso or Breathing Relieved By: Nothing Associated Symptoms: Negative for Nausea, Vomiting, Diaphoresis, Dyspnea, Lightheadedness or Palpitations Narrative Narrative: Patient presents with chest discomfort a started at rest this morning. This is unusual for him. He has history of A. fib for which he is on apixaban and carvedilol, he does not have a history of coronary disease that he knows of and had a negative stress test several months ago. He states this morning he took his morning medications, then around noon he accidentally took his nighttime medications which include his second dose of a apixaban and second dose of carvedilol both of which he already took earlier this morning. He states chest discomfort started maybe about an hour later, he is not sure if it is related or not. He denies any dyspnea although he has chronic dyspnea with exertion, lightheadedness, palpitations, or other systemic symptoms with this today. [facility] Medical History Atrial fibrillation with RVR (02/05/21) Back pain BPH (benign prostatic hyperplasia) Cardiology follow-up encounter Dietary restriction Enlarged prostate Essential (primary) hypertension Former smoker High cholesterol History of atrial fibrillation Hyperlipidemia Hypertension Injury of back Insulin dependent diabetes mellitus New onset atrial fibrillation (02/05/21) Nonobstructive atherosclerosis of coronary artery Obesity Paroxysmal atrial fibrillation Prostate disease Psoriasis Restless legs Right bundle branch 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 Shortness of breath on exertion Type 2 diabetes mellitus Wears glasses Wears hearing aid Home Medications simvastatin 40 mg tablet 40 mg PO QHS cholesterol 04/21/15 [History Last Taken Unknown] apixaban 5 mg tablet (Eliquis) 5 mg PO BID #180 tabs 02/22/21 [Rx Last Taken Unknown] aspirin 81 mg tablet,delayed release 81 mg PO DAILY #90 tabs 02/22/21 [Rx Last Taken 07/22/21] carvedilol 25 mg tablet 25 mg PO BID #180 tabs 02/22/21 [Rx Last Taken Unknown] losartan 100 mg-hydrochlorothiazide 12.5 mg tablet 1 tab PO DAILY 06/23/21 [History Last Taken Unknown] diltiazem HCl 120 mg capsule,extended release 24 hr 120 mg PO DAILY #90 caps 07/18/21 [Rx Last Taken Unknown] flecainide 150 mg tablet 150 mg PO Q12H #60 tabs 10/10/21 [Rx Last Taken Unknown] dutasteride 0.5 mg capsule 0.5 mg PO DAILY 10/24/21 [History Last Taken Unknown] insulin lispro 100 unit/mL subcutaneous pen (Humalog KwikPen (U-100) Insulin) 26 unit subcut TID diabetes 10/24/21 [History Last Taken Unknown] metformin 500 mg tablet,extended release 24 hr 1,000 mg PO BID 10/24/21 [History Last Taken Unknown] albuterol sulfate 90 mcg/actuation aerosol inhaler 1 inh inhalation Q6H PRN SOB #8.5 grams 11/30/21 [Rx Last Taken Unknown] colestipol 1 gram tablet 1 g PO DAILY 01/30/22 [History Last Taken Unknown] insulin glargine 100 unit/mL (3 mL) subcutaneous pen (Lantus Solostar U-100 Insulin) 90 unit subcut QPM diabetes 01/30/22 [History Last Taken Unknown] spironolactone 25 mg tablet 25 mg PO DAILY #30 tabs 01/30/22 [Rx Last Taken Unknown] isosorbide mononitrate 30 mg tablet,extended release 24 hr 30 mg PO DAILY #30 tabs 04/08/22 [Rx Last Taken Unknown] Allergy/AdvReac Type Severity Reaction Status Date / Time amoxicillin Allergy Rash Verified 03/02/22 10:35 Family History Sister Colon cancer Brother Diabetes Mother Diabetes Heart disease Cancer Father Heart disease Cancer Diabetes Surgical History H/O hemorrhoidectomy H/O wrist surgery History of left heart catheterization (02/07/21) Hx of cholecystectomy Hx of umbilical hernia repair Status post surgical manipulation of ankle joint Social History household members: spouse Smoking Status: Former smoker how long ago did patient quit smokin years ago alcohol intake: never substance use type: does not use caffeine: Yes ROS ROS ED Constitutional Constitutional ED: Denies chills or fever(s) Eyes Eyes: Denies change in vision or diplopia ENT ENT ED: Denies rhinorrhea or sore throat Cardiovascular Cardiovascular: Reports chest pain; Denies palpitations Respiratory/Chest Respiratory/Chest: Reports dyspnea on exertion; Denies cough or dyspnea Gastrointestinal Gastrointestinal: Denies abdominal pain, diarrhea, nausea or vomiting Genitourinary Genitourinary ED: Denies dysuria or hematuria Musculoskeletal Musculoskeletal: Denies back pain or neck pain Integumentary Denies abscess or rash Neurologic Neurologic: Denies headache(s), paresthesias or weakness Psychiatric Psychiatric: Denies anxiety or suicidal thoughts EXAM Physical Exam Const Vital Signs: 04/08/22 15:02 04/08/22 15:43 04/08/22 16:02 Temperature 97.8 F Temperature Source Oral Pulse Rate 75 76 Respiratory Rate 15 Blood Pressure 154/65 H 138/62 H Blood Pressure Mean 94 Pulse Ox 98 96 Oxygen Delivery Method Room Air Room Air 04/08/22 16:03 04/08/22 16:11 04/08/22 17:28 Temperature Temperature Source Pulse Rate 76 77 74 Respiratory Rate 21 H 16 Blood Pressure 138/62 H 106/59 L 154/77 H Blood Pressure Mean 87 102 Pulse Ox 96 96 Oxygen Delivery Method Room Air Room Air 04/08/22 18:04 Temperature Temperature Source Pulse Rate 75 Respiratory Rate 16 Blood Pressure 145/76 H Blood Pressure Mean 99 Pulse Ox 96 Oxygen Delivery Method Room Air Positive well nourished, well developed and obese General Appearance ED: well developed and NAD Nutritional Appearance: obese HEENT Reports moist mucous membranes normocephalic and atraumatic Eyes PERRL and EOMs intact bilaterally Neck full ROM and supple Resp normal respiratory effort and clear to auscultation bilaterally Cardio regular rate, regular rhythm and no murmurs Rate: Negative for bradycardia or tachycardic GI non-tender and non-distended Auscultation: normoactive bowel sounds Palpation: soft Back/Spine no CVA tenderness General Back: other FROM Extremity normal to inspection General Extremety ED: Negative for edema, pulses abnormal or tenderness General Extremity: Negative for edema or pulses abnormal Neuro oriented x3, CN's II-XII intact bilaterally and no sensory deficits noted Sensorium / Orientation: awake and alert Motor Exam: strength 5/5 throughout Skin no rashes or lesions noted and no wounds Heart Score History: Moderately Suspicious ECG: Nonspecific Repolarization Age: >/= 65 years Risk Factors: >/= 3 Risk Factors or History of CAD Troponin: </= Normal Limit Score: 6 MDM MDM MDM Narrative Medical decision making narrative: EKG shows nothing acute and is unchanged compared with his old, his initial troponin is within normal limits at 10, he was given 2 nitroglycerin which made his discomfort completely resolve and he felt much better. Chest x-ray 1 view on my interpretation nothing acute. We did a delta troponin, it went from 10-9, he is still chest pain-free and feeling well. I discussed with Dr. Hodge. He advises discharging the patient home under the circumstances, prescribing him Imdur 30 mg daily just in case and have him follow-up for stress test in the near future. His family is concerned that his accidental ingestion of his usual medications early caused all this, I really do not think that they did. I think he can skip his nighttime doses tonight, we discussed that, and he can start Imdur tomorrow. Lab Data Attestation: I reviewed the patient's lab results. Labs: Laboratory Results - last 24 hr 04/08/22 04/08/22 04/08/22 15:10 15:10 17:26 WBC 10.4 RBC 5.10 Hgb 14.0 Hct 43.4 MCV 85.1 MCH 27.5 MCHC 32.3 RDW Std Deviation 45.3 H RDW Coeff of Lucia 14.5 Plt Count 247 MPV 11.5 Immature Gran % (Auto) 0.400 Neut % (Auto) 68.6 Lymph % (Auto) 16.4 L [place] % (Auto) 11.1 H Eos % (Auto) 3.1 Baso % (Auto) 0.4 Absolute Neuts (auto) 7.1 Absolute Lymphs (auto) 1.70 Nucleated RBC % 0 Sodium 137 Potassium 4.6 Chloride 103 Carbon Dioxide 26.0 Anion Gap 8 BUN 20 H Creatinine 1.16 Estim Creat Clear Calc 59.31 Est GFR (MDRD) Af Amer 78 Est GFR (MDRD) Non-Af 65 BUN/Creatinine Ratio 17.2 Glucose 138 H Calcium 9.2 Troponin I High Sens 10 9 Radiography Diagnostic Testing: Clinical Impression(s) from Imaging Studies Chest X-Ray 04/08/22 16:10 IMPRESSION: Nonacute portable x-ray examination of the chest. Electronically Signed: Lázaro Koehler MD ([place]) at 16:58 EDT Reading Location ID and State: [facility] / [place] , Service support , Rhythm Strip Rhythm Strip: Sinus Rhythm Rate: 75 Ectopy: None EKG Initial EKG: Attestation: I personally reviewed and interpreted this EKG as follows: Interpretation: Sinus Rhythm, No Acute Injury Pattern, AV Block (1st deg) and Non-Specific ST Changes Prior EKG tracings: available for review Prior: Unchanged Discharge Plan Triage Chief Complaint: Chest Pain ED Provider: [place] Dx/Rx/DC Orders Clinical Impression: Chest pain, Accidental drug ingestion Instructions: ED Chest Pain, Uncertain Cause Prescriptions: New isosorbide mononitrate 30 mg tablet extended release 24 hr 30 mg PO DAILY Qty: 30 0RF No Action Eliquis 5 mg tablet 5 mg PO BID Qty: 180 3RF Hold Instructions: Resume on 08/12/21. aspirin 81 mg tablet,delayed release (DR/EC) 81 mg PO DAILY Qty: 90 3RF Hold Instructions: Resume on 08/12/21. carvedilol 25 mg tablet 25 mg PO BID Qty: 180 3RF losartan-hydrochlorothiazide 100-12.5 mg tablet 1 tab PO DAILY dutasteride 0.5 mg capsule 0.5 mg PO DAILY Label Comments: take 1 capsule by mouth once daily metformin 500 mg tablet extended release 24 hr 1,000 mg PO BID flecainide 150 mg tablet 150 mg PO Q12H Qty: 60 6RF spironolactone 25 mg tablet 25 mg PO DAILY Qty: 30 2RF albuterol sulfate 90 mcg/actuation HFA aerosol inhaler 1 inh INHALATION Q6H PRN (Reason: SOB) Qty: 8.5 6RF simvastatin 40 MG tablet 40 mg PO QHS insulin lispro [Humalog KwikPen Insulin] 100 unit/mL insulin pen 26 unit SUBCUT TID colestipol 1 gram tablet 1 g PO DAILY Lantus Solostar U-100 Insulin 100 unit/mL (3 mL) insulin pen 90 unit SUBCUT QPM diltiazem HCl 120 mg capsule,extended release 24hr 120 mg PO DAILY Qty: 90 3RF Primary Care Provider: Jeff Subramanian Referrals: Devante Ponce MD [STAFF PHYSICIAN] - (Next week, call for appointment) Jeff Subraamnian MD [Primary Care Provider] - Activity Restrictions/Additional Instructions: Since you already took your nighttime medications, do not repeat them tonight; resume in the a.m. Disposition Disposition: Home, Self Care
[2022-04-08] MEDS: Nitroglycerin SL (ED/IMG/CATH) 0.4 MG TABLET SL ×2 (16:02→16:11)
--- NOTE | 2022-04-08 16:10 | RAD_ITS ---
STUDY: X-RAY CHEST REASON FOR EXAM: Male, 77 years old. chest pain TECHNIQUE: AP COMPARISON: 10/09/2021 FINDINGS: EKG leads project over the chest. There are interstitial fibrotic changes of the lungs. No airspace consolidation or pleural effusion. There is no demonstrated pleural abnormality. Normal size heart. Normal mediastinum and shashi. Normal visualized pulmonary arteries. Normal visualized aortic arch and descending thoracic aorta. Normal visualized thoracic spine. Normal visualized ribs, clavicles, and shoulders. There is no demonstrated abnormality of the visualized soft tissue structures of the upper abdomen. RAD/Chest 1 View (Portable) IMPRESSION: Nonacute portable x-ray examination of the chest. Electronically Signed: Lázaro Koehler MD ([place]) at 16:58 EDT ,
[2022-04-08 16:14] LABS: Absolute Neutrophil Count 7.1 X10^3/uL (2.0-7.7); Basophil# 0.04 X10^3/uL; Basophil% 0.4 % (0-1); Eosinophil# 0.32 X10^3/uL; Eosinophils% 3.1 % (0-5); Hematocrit 43.4 % (40-54); Lymphocyte % 16.4 % (19-41); Mean Corp Hgb Conc 32.3 g/dL (32-36); Mean Corpuscular Hgb 27.5 pg (27.0-32.0); Mean Corpuscular Volume 85.1 fL (80-94); Mean Platelet Vol. 11.5 fl (6.2-12.0); Monocyte# 1.15 X10^3/uL; Monocyte% 11.1 % (0-10); NRBC Flagged by Analyzer 0 % (0-5); Neutrophil # 7.14 X10^3/uL (2.7-7.7); Neutrophil % 68.6 % (47-70); Platelet Count 247 K/mm3 (150-450); RBC Distribution Width CV 14.5 % (11.6-14.6); RBC Distribution Width SD 45.3 fl (35.1-43.9); White Blood Count 10.4 K/mm3 (4.4-11.0)
[2022-04-08 16:40] LABS: Anion Gap 8 (5-15); BUN 20 mg/dL (7-18); BUN/Creat Ratio 17.2 RATIO (10-20); Calcium,Total 9.2 mg/dL (8.5-10.1); Chloride 103 mmol/L (98-107); Creatinine, Serum 1.16 mg/dL (0.70-1.30); EST Glomerular Filtration Rate 65 mL/min (>60); Est Glom Filt Rate - Afr Amer 78 mL/min (>60); Estimated Creatinine Clearance 59.31 ml/min; Glucose 138 mg/dL (74-106); Potassium 4.6 mmol/L (3.5-5.1); Sodium Level 137 mmol/L (136-145); Troponin-I HS (w/2H Reflex) 10 pg/mL (3.0-78.0)
[2022-04-08 18:10] LABS: Reflex Troponin-HS? (from REC) Y
[2022-04-08 18:44] LABS: Troponin-I HS 9 pg/mL (3.0-78.0)
[2022-04-08 19:11] LABS: Bedside Glucose 93 mg/dL (74-106)
== END 2022-04-08 19:08 | disposition home or self-care (01) ==
PROVIDERS: Emergency Provider Emergency Medicine; PCP Family Medicine; Visit Provider Emergency Medicine
DX: R07.9 Chest pain, unspecified (principal); I48.91 Unspecified atrial fibrillation; E11.9 Type 2 diabetes mellitus without complications; Z79.4 Long term (current) use of insulin; E78.5 Hyperlipidemia, unspecified; Z87.891 Personal history of nicotine dependence; I10 Essential (primary) hypertension; E78.00 Pure hypercholesterolemia, unspecified; I25.10 Atherosclerotic heart disease of native coronary artery without angina pectoris; T50.901A Poisoning by unspecified drugs, medicaments and biological substances, accidental (unintentional), initial encounter
CPT/HCPCS: 36415; 71045; 80048; 82962; 84484; 85025; 93005; 99284; A4216

== ENCOUNTER 2022-08-08 08:47 | Emergency (ER) | payer MEDICARE, SELFPAY ==
[2022-08-08 08:49] VITALS: BP 160/65; PULSE 86; RESP 14; TEMP 36.4; O2SAT 96; BMI 39.5
--- NOTE | 2022-08-08 09:17 | EX.ED.DYSGE1 ---
HPI History of Present Illness Chief Complaint: Foreign Body Informant: patient and family Narrative Narrative: 77-year-old male presenting to the emergency department with a chief complaint of foreign body. Patient states that on Sunday he gave himself an insulin shot and since that time has had discomfort just to the right lower aspect of his abdomen by his umbilicus. Family states they can feel a bump. He notes some discomfort there. He is on apixaban due to atrial fibrillation. He denies any fevers or drainage from the site. [facility] Medical History Atrial fibrillation with RVR (02/05/21) Back pain BPH (benign prostatic hyperplasia) Cardiology follow-up encounter Dietary restriction Enlarged prostate Essential (primary) hypertension Former smoker High cholesterol History of atrial fibrillation Hyperlipidemia Hypertension Injury of back Insulin dependent diabetes mellitus New onset atrial fibrillation (02/05/21) Nonobstructive atherosclerosis of coronary artery Obesity Paroxysmal atrial fibrillation Prostate disease Psoriasis Restless legs Right bundle branch 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 Shortness of breath on exertion Type 2 diabetes mellitus Wears glasses Wears hearing aid Home Medications simvastatin 40 mg tablet 40 mg PO QHS cholesterol 04/21/15 [History Last Taken Unknown] apixaban 5 mg tablet (Eliquis) 5 mg PO BID #180 tabs 02/22/21 [Rx Last Taken Unknown] aspirin 81 mg tablet,delayed release 81 mg PO DAILY #90 tabs 02/22/21 [Rx Last Taken 07/22/21] carvedilol 25 mg tablet 25 mg PO BID #180 tabs 02/22/21 [Rx Last Taken Unknown] losartan 100 mg-hydrochlorothiazide 12.5 mg tablet 1 tab PO DAILY 06/23/21 [History Last Taken Unknown] diltiazem HCl 120 mg capsule,extended release 24 hr 120 mg PO DAILY #90 caps 07/18/21 [Rx Last Taken Unknown] dutasteride 0.5 mg capsule 0.5 mg PO DAILY 10/24/21 [History Last Taken Unknown] insulin lispro 100 unit/mL subcutaneous pen (Humalog KwikPen (U-100) Insulin) 26 unit subcut TID diabetes 10/24/21 [History Last Taken Unknown] metformin 500 mg tablet,extended release 24 hr 1,000 mg PO BID 10/24/21 [History Last Taken Unknown] albuterol sulfate 90 mcg/actuation aerosol inhaler 1 inh inhalation Q6H PRN SOB #8.5 grams 11/30/21 [Rx Last Taken Unknown] colestipol 1 gram tablet 1 g PO DAILY 01/30/22 [History Last Taken Unknown] insulin glargine 100 unit/mL (3 mL) subcutaneous pen (Lantus Solostar U-100 Insulin) 90 unit subcut QPM diabetes 01/30/22 [History Last Taken Unknown] spironolactone 25 mg tablet 25 mg PO DAILY #30 tabs 01/30/22 [Rx Last Taken Unknown] flecainide 150 mg tablet 150 mg PO Q12H #60 tabs 05/08/22 [Rx Last Taken Unknown] Allergy/AdvReac Type Severity Reaction Status Date / Time amoxicillin Allergy Rash Verified 08/08/22 08:50 Family History Sister Colon cancer Brother Diabetes Mother Diabetes Heart disease Cancer Father Heart disease Cancer Diabetes Surgical History H/O hemorrhoidectomy H/O wrist surgery History of left heart catheterization (02/07/21) Hx of cholecystectomy Hx of umbilical hernia repair Status post surgical manipulation of ankle joint Social History household members: spouse Smoking Status: Former smoker how long ago did patient quit smokin years ago alcohol intake: never substance use type: does not use caffeine: Yes Type: coffee Number of servings: 1 ROS ROS ED Constitutional Constitutional ED: Denies chills or weight loss Eyes Eyes: Denies change in vision or diplopia ENT ENT ED: Denies ear pain, rhinorrhea or sore throat Cardiovascular Cardiovascular: Denies chest pain, orthopnea, palpitations or racing heartbeat Respiratory/Chest Respiratory/Chest: Denies cough, dyspnea or orthopnea Gastrointestinal Gastrointestinal: Reports abdominal pain; Denies diarrhea, nausea or vomiting Genitourinary Genitourinary ED: Denies dysuria, hematuria or urinary frequency Musculoskeletal Musculoskeletal: Denies arthralgias or myalgias Integumentary Denies abscess or rash Neurologic Neurologic: Denies headache(s) or weakness Psychiatric Psychiatric: Denies anxiety, depression, suicidal ideation or suicidal thoughts Endocrine Endocrinology: Denies polydipsia, polyphagia or polyuria Allergic/Immunologic Allergic/Immunologic ED: Denies mouth swelling, tongue swelling or urticaria EXAM Physical Exam Const Vital Signs: 08/08/22 08:49 Temperature 97.5 F L Temperature Source Temporal Pulse Rate 86 Respiratory Rate 14 Blood Pressure 160/65 H Blood Pressure Mean 96 Pulse Ox 96 Oxygen Delivery Method Room Air Positive well nourished, well developed and obese General Appearance ED: well developed Nutritional Appearance: obese HEENT Reports normocephalic, head/scalp atraumatic and moist mucous membranes Eyes PERRL and EOMs intact bilaterally Neck no lymphadenopathy, supple and no JVD Resp normal respiratory effort and clear to auscultation bilaterally Cardio regular rate, regular rhythm and no murmurs GI normal to inspection, nondistended, normoactive bowel sounds and non-tender Palpation: soft Back/Spine no CVA tenderness and normal ROM Extremity normal to inspection General Extremety ED: Negative for edema General Extremity: Negative for edema Neuro oriented x3 and CN's II-XII intact bilaterally Sensorium / Orientation: alert Motor Exam: strength 5/5 throughout Psych mental status grossly normal Mood & Affect: Negative for depressed or tearful Skin no rashes or lesions noted Skin Narrative: Located just a few finger breaths inferior and right lateral to the umbilicus is a small red skin lesion consistent with a puncture site. I do not appreciate any abscess or signs of secondary infection. I do not palpate any foreign body. He states it is mildly tender. MDM MDM MDM Narrative Medical decision making narrative: My impression of the lateral x-ray of the abdominal soft tissues is no obvious foreign bodies. Radiology concurs. At this point patient will be discharged home. Return if worsening or concerns Radiography Diagnostic Testing: Clinical Impression(s) from Imaging Studies KUB X-Ray 08/08/22 09:20 IMPRESSION: No radiopaque foreign body identified in the anterior abdominal wall. Electronically Signed: Amira Brewster MD at 9:44 EST , Discharge Plan Triage Chief Complaint: Foreign Body ED Provider: Fito Villalobos Dx/Rx/DC Orders Clinical Impression: Abdominal wall pain Instructions: ED Hematoma Prescriptions: No Action Eliquis 5 mg tablet 5 mg PO BID Qty: 180 3RF Hold Instructions: Resume on 08/12/21. aspirin 81 mg tablet,delayed release (DR/EC) 81 mg PO DAILY Qty: 90 3RF Hold Instructions: Resume on 08/12/21. carvedilol 25 mg tablet 25 mg PO BID Qty: 180 3RF losartan-hydrochlorothiazide 100-12.5 mg tablet 1 tab PO DAILY dutasteride 0.5 mg capsule 0.5 mg PO DAILY Label Comments: take 1 capsule by mouth once daily metformin 500 mg tablet extended release 24 hr 1,000 mg PO BID spironolactone 25 mg tablet 25 mg PO DAILY Qty: 30 2RF albuterol sulfate 90 mcg/actuation HFA aerosol inhaler 1 inh INHALATION Q6H PRN (Reason: SOB) Qty: 8.5 6RF simvastatin 40 MG tablet 40 mg PO QHS insulin lispro [Humalog KwikPen Insulin] 100 unit/mL insulin pen 26 unit SUBCUT TID colestipol 1 gram tablet 1 g PO DAILY Lantus Solostar U-100 Insulin 100 unit/mL (3 mL) insulin pen 90 unit SUBCUT QPM diltiazem HCl 120 mg capsule,extended release 24hr 120 mg PO DAILY Qty: 90 3RF flecainide 150 mg tablet 150 mg PO Q12H Qty: 60 6RF Primary Care Provider: Jeff Subramanian Referrals: Jeff Subramanian MD [Primary Care Provider] - As Needed Disposition Disposition: Home, Self Care
--- NOTE | 2022-08-08 09:20 | RAD_ITS ---
HISTORY: FOREIGN BODY -- LATERAL VIEW ATTN TO SOFT TISSUE OF THE UMBILICUS. TECHNIQUE: XR Abdomen 1 View. COMPARISON: CT 09/19/2021. FINDINGS: BOWEL GAS PATTERN: No dilated bowel loops identified. SOFT TISSUES: No radiopaque foreign body seen in the anterior abdominal wall. RAD/Abdomen Single View IMPRESSION: No radiopaque foreign body identified in the anterior abdominal wall. Electronically Signed: Amira Brewster MD at 9:44 EST ,
== END 2022-08-08 10:37 | disposition home or self-care (01) ==
PROVIDERS: Emergency Provider Emergency Medicine; PCP Family Medicine; Visit Provider Emergency Medicine
DX: R10.9 Unspecified abdominal pain (principal); I48.91 Unspecified atrial fibrillation; E11.9 Type 2 diabetes mellitus without complications; Z79.4 Long term (current) use of insulin; I25.10 Atherosclerotic heart disease of native coronary artery without angina pectoris; I10 Essential (primary) hypertension; E78.5 Hyperlipidemia, unspecified; Z87.891 Personal history of nicotine dependence; E78.00 Pure hypercholesterolemia, unspecified
CPT/HCPCS: 74018; 99282

== ENCOUNTER 2022-11-20 23:58 | Emergency (ER) | payer MEDICARE, SELFPAY ==
[2022-11-20 23:59] VITALS: BP 134/74; PULSE 80; RESP 25; TEMP 36.6; O2SAT 95; BMI 40.8
--- NOTE | 2022-11-21 00:13 | EKG12_ITS ---
Test Reason : CP Blood Pressure : / mmHG Vent. Rate : 079 BPM Atrial Rate : 079 BPM P-R Int : 228 ms QRS Dur : 160 ms QT Int : 438 ms P-R-T Axes : 022 -83 029 degrees QTc Int : 502 ms Sinus rhythm with 1st degree A-V block Right bundle branch block Left anterior fascicular block Bifascicular block Abnormal ECG Confirmed by ALEXANDREA SAMUEL, REGAN ([id number]), industrial editor ENID CLINTON ([id number]) on 11/22/2022 10:24:52 AM Referred By: PL Confirmed By:REGAN LECHUGA MD
--- NOTE | 2022-11-21 00:13 | RAD_ITS ---
EXAM: XR CHEST, 1 VIEW CLINICAL INDICATION: chest pain TECHNIQUE: Frontal view of the chest. This report was created using [employer] report generation technology. COMPARISON: April 08, 2022, September 19, 2021. FINDINGS: LUNGS AND PLEURAL SPACES: Stable mildly increased interstitial markings in the lungs. No pneumothorax. No effusion. HEART: Stable borderline cardiomegaly. MEDIASTINUM: Central airways and mediastinal contour are unremarkable. BONES/JOINTS: Unremarkable. SOFT TISSUES: Unremarkable. RAD/Chest 1 View (Portable) IMPRESSION: Stable chest. Mild chronic changes. Electronically Signed: Jie Malone MD at 1:43 EST ,
[2022-11-21 00:23] LABS: Absolute Lymphocyte Count 2.17 X10^3/uL (0.83-4.51); Absolute Neutrophil Count 7.9 X10^3/uL (2.0-7.7); Basophil# 0.06 X10^3/uL; Basophil% 0.5 % (0-1); Eosinophils% 3.3 % (0-5); Hemoglobin 14.7 g/dL (13.0-16.5); Lymphocyte # 2.17 X10^3/ul (0.83-4.51); Lymphocyte % 17.9 % (19-41); Mean Corp Hgb Conc 34.2 g/dL (32-36); Mean Corpuscular Hgb 29.2 pg (27.0-32.0); Mean Corpuscular Volume 85.5 fL (80-94); Mean Platelet Vol. 11.2 fl (6.2-12.0); Monocyte% 12.4 % (0-10); NRBC Flagged by Analyzer 0 % (0-5); Neutrophil # 7.92 X10^3/uL (2.7-7.7); Neutrophil % 65.5 % (47-70); Platelet Count 249 K/mm3 (150-450); RBC Distribution Width CV 13.2 % (11.6-14.6); RBC Distribution Width SD 41.1 fl (35.1-43.9); Red Blood Count 5.03 M/mm3 (4.6-6.2); White Blood Count 12.1 K/mm3 (4.4-11.0)
[2022-11-21 00:45] LABS: Anion Gap 8 (5-15); BUN 25 mg/dL (7-18); BUN/Creat Ratio 20.5 RATIO (10-20); Chloride 102 mmol/L (98-107); Creatinine, Serum 1.22 mg/dL (0.70-1.30); EST Glomerular Filtration Rate 61 mL/min (>60); Est Glom Filt Rate - Afr Amer 74 mL/min (>60); Glucose 153 mg/dL (74-106); Potassium 3.9 mmol/L (3.5-5.1); Sodium Level 134 mmol/L (136-145); Troponin-I HS (w/2H Reflex) 8 pg/mL (3.0-78.0)
[2022-11-21 01:08] VITALS: BP 136/76; PULSE 73; RESP 18; O2SAT 94
--- NOTE | 2022-11-21 01:08 | EDS_ITS ---
HPI History of Present Illness Chief Complaint: Chest Pain Informant: patient and spouse/S.O. Narrative Narrative: Patient presents with chest pain. This patient has a history of A-fib on Eliquis. He has had nonobstructive coronary artery disease. He always gets dyspneic on exertion. He states today at around 4:00 he walked a lot farther than he normally would or he should. He did get dyspnea on exertion. He had to pause a few times which is typical. But he also developed some left-sided chest pain that is not typical for him. He did not get diaphoretic or nauseated. The pain stayed there until ambulance gave him nitroglycerin in which case it went completely away and he is asymptomatic now. No change in medicines. He was feeling normal up to this and he is feeling normal now. He sees Dr. Ponce The following info was historic data taken from a recent cardiology outpatient visit: Echocardiogram from 01/27/2021: Conclusions: ?Technically difficult exam due to body habitus. ?Exam dictation: Shortness of breath ?The left ventricle is normal in size.? There is mild concentric left ventricular perjury.? Left ventricle systolic function is normal.? EF equals 65?5% (visual EST.)? Grade 1 left ventricular diastolic dysfunction. ?The right ventricle is normal in size.? Right ventricular systolic function is normal. ?There is no significant valvular abnormalities. ?Definity contrast could not be administered due to unavailability of staff. ?The patient has not had a prior [facility] echocardiographic exam for comparison. CORONARY ANGIOGRAPHY 01/2021: CONCLUSIONS Mild nonobstructive CAD.? Preserved left ventricular function.? Atrial fibrillation. RECOMMENDATIONS Medical therapy DOMINANCE:? Right Dominant LEFT HEART ASSESSMENT Left Ventricular Ejection Fraction: by LV Gram 65 % Normal LV wall motion Normal Left Ventricular systolic function LEFT MAIN: Non-obstructive LEFT ANTERIOR DESCENDING ARTERY: PROX LAD: smooth 40 % Stenosis CIRCUMFLEX ARTERY: Mild luminal irregularities RIGHT CORONARY ARTERY: Mild luminal irregularities [facility] Medical History (Updated 11/21/22 @ 01:[address] Kodi Taylor MD) Acute respiratory failure with hypoxia Atrial fibrillation with RVR (02/05/21) Back pain BPH (benign prostatic hyperplasia) Dietary restriction Enlarged prostate Essential (primary) hypertension Former smoker High cholesterol Hyperlipidemia Hypertension Injury of back Insulin dependent diabetes mellitus Left lower lobe pneumonia Morbid obesity Nonobstructive atherosclerosis of coronary artery Obesity Pneumonia due to COVID-19 virus Psoriasis Restless legs Restrictive airway disease Right bundle branch 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 Shortness of breath on exertion Type 2 diabetes mellitus Wears glasses Wears hearing aid Home Medications simvastatin 40 mg tablet 40 mg PO QHS cholesterol 04/21/15 [History Last Taken Unknown] apixaban 5 mg tablet (Eliquis) 5 mg PO BID #180 tabs 02/22/21 [Rx Last Taken Unknown] aspirin 81 mg tablet,delayed release 81 mg PO DAILY #90 tabs 02/22/21 [Rx Last Taken 07/22/21] carvedilol 25 mg tablet 25 mg PO BID #180 tabs 02/22/21 [Rx Last Taken Unknown] losartan 100 mg-hydrochlorothiazide 12.5 mg tablet 1 tab PO DAILY 06/23/21 [History Last Taken Unknown] diltiazem HCl 120 mg capsule,extended release 24 hr 120 mg PO DAILY #90 caps 07/18/21 [Rx Last Taken Unknown] insulin lispro 100 unit/mL subcutaneous pen (Humalog KwikPen (U-100) Insulin) 26 unit subcut TID diabetes 10/24/21 [History Last Taken Unknown] metformin 500 mg tablet,extended release 24 hr 1,000 mg PO BID 10/24/21 [History Last Taken Unknown] albuterol sulfate 90 mcg/actuation aerosol inhaler 1 inh inhalation Q6H PRN SOB #8.5 grams 11/30/21 [Rx Last Taken Unknown] colestipol 1 gram tablet 1 g PO DAILY 01/30/22 [History Last Taken Unknown] insulin glargine 100 unit/mL (3 mL) subcutaneous pen (Lantus Solostar U-100 Insulin) 90 unit subcut QPM diabetes 01/30/22 [History Last Taken Unknown] spironolactone 25 mg tablet 25 mg PO DAILY #30 tabs 01/30/22 [Rx Last Taken Unknown] flecainide 150 mg tablet 150 mg PO Q12H #60 tabs 05/08/22 [Rx Last Taken Unknown] finasteride 5 mg tablet 5 mg PO DAILY 10/27/22 [History Last Taken Unknown] Allergy/AdvReac Type Severity Reaction Status Date / Time amoxicillin Allergy Rash Verified 11/21/22 00:04 Family History Sister Colon cancer Brother Diabetes Mother Diabetes Heart disease Cancer Father Heart disease Cancer Diabetes Surgical History H/O hemorrhoidectomy H/O wrist surgery History of left heart catheterization (02/07/21) Hx of cholecystectomy Hx of umbilical hernia repair Status post surgical manipulation of ankle joint Social History household members: spouse Smoking Status: Former smoker how long ago did patient quit smokin years ago alcohol intake: never substance use type: does not use caffeine: Yes Type: coffee Number of servings: 1 ROS ROS ED Constitutional Constitutional ED: Denies chills, fever(s) or subjective Eyes Eyes: Denies change in vision ENT ENT ED: Denies rhinorrhea or sore throat Cardiovascular Cardiovascular: Reports chest pain Respiratory/Chest Respiratory/Chest: Reports dyspnea; Denies cough Gastrointestinal Gastrointestinal: Denies nausea or vomiting Genitourinary Genitourinary ED: Denies dysuria Musculoskeletal Musculoskeletal: Denies myalgias Integumentary Denies rash Neurologic Neurologic: Denies headache(s) Endocrine Endocrinology: Denies polydipsia or polyuria Hematologic/Lymphatic Hematologic/Lymphatic: Reports easy bleeding and easy bruising Allergic/Immunologic Allergic/Immunologic ED: Denies urticaria EXAM Physical Exam Narrative Exam Narrative: Patient is sitting in bed in no acute distress. Carries on normal conversation. HEENT shows no trauma Neck shows no obvious JVD but is difficult to assess due to size Lungs are clear to auscultation. No rales. Saturations are 94 to 96% on room air showing no hypoxia. Heart is regular. Has a rate about 75. No ectopy is noted on the monitor. Abdomen is obese but overall benign Extremities show no marked edema. They are not small but no significant edema and they are normal per patient Const Vital Signs: 11/20/22 23:59 11/21/22 00:09 11/21/22 00:23 Temperature 97.9 F Temperature Source Oral Pulse Rate 80 Respiratory Rate 25 H Respiratory Effort Normal Non-Labored Blood Pressure 134/74 H Blood Pressure Mean 94 Pulse Ox 95 Oxygen Delivery Method Room Air Room Air 11/21/22 01:08 Temperature Temperature Source Pulse Rate 73 Respiratory Rate 18 Respiratory Effort Blood Pressure 136/76 H Blood Pressure Mean 96 Pulse Ox 94 Oxygen Delivery Method Room Air MDM MDM MDM Narrative Medical decision making narrative: My independent interpretation of the patient's single view AP chest shows some increased markings that might be due to body habitus. But no other acute process. Radiology reading was similar. White count was minimally up at 12.1 which is nonspecific. Hemoglobin platelets are normal. Electrolytes showed no marked abnormalities. Sodium was minimally low at 134. Glucose was slightly up at 150. He may have minimal dehydration with a BUN to creatinine ratio of 20.5. I do not think this needs acute treatment. I rechecked the patient. He still asymptomatic. I did discuss the case with his sales department clerk, Dr. Ponce. This patient has exertional symptoms all the time and has had it for quite some time. He has a heart cath that shows no acute abnormality within the last 2 years. He did have 1 area of stenosis but it was only 40% and very smooth. Since he is asymptomatic, completely negative troponin, on all appropriate medications, has this heart cath, we will get him home with close follow-up at this time. We did discuss reasons to return. He should continue all his medications. Lab Data Attestation: I reviewed the patient's lab results. Labs: Laboratory Results - last 24 hr 11/21/22 11/21/22 00:05 00:05 WBC 12.1 H RBC 5.03 Hgb 14.7 Hct 43.0 MCV 85.5 MCH 29.2 MCHC 34.2 RDW Std Deviation 41.1 RDW Coeff of Lucia 13.2 Plt Count 249 MPV 11.2 Immature Gran % (Auto) 0.400 Neut % (Auto) 65.5 Lymph % (Auto) 17.9 L Rooks % (Auto) 12.4 H Eos % (Auto) 3.3 Baso % (Auto) 0.5 Absolute Neuts (auto) 7.9 H Absolute Lymphs (auto) 2.17 Nucleated RBC % 0 Sodium 134 L Potassium 3.9 Chloride 102 Carbon Dioxide 24.0 Anion Gap 8 BUN 25 H Creatinine 1.22 Estim Creat Clear Calc 56.40 Est GFR (MDRD) Af Amer 74 Est GFR (MDRD) Non-Af 61 BUN/Creatinine Ratio 20.5 H Glucose 153 H Calcium 9.0 Troponin I High Sens 8 Radiography Diagnostic Testing: Clinical Impression(s) from Imaging Studies Chest X-Ray 11/21/22 00:13 IMPRESSION: Stable chest. Mild chronic changes. Electronically Signed: Jie Malone MD at 1:43 EST , EKG Initial EKG: Comments: My independent interpretation of the patient's EKG shows sinus rhythm with first-degree AV block and overall rate of 79. There is a right bundle branch block with secondary changes but no sign of acute ST elevation or depression. DC interval QRS duration and QTc are all long. However, this EKG is quite similar to 1 from 08 April 2022 Discharge Plan Triage Chief Complaint: Chest Pain ED Provider: Kdoi Taylor Dx/Rx/DC Orders Clinical Impression: Chest pain, Exertional shortness of breath Instructions: ED Chest Pain, Uncertain Cause Prescriptions: No Action Eliquis 5 mg tablet 5 mg PO BID Qty: 180 3RF Hold Instructions: Resume on 08/12/21. aspirin 81 mg tablet,delayed release (DR/EC) 81 mg PO DAILY Qty: 90 3RF Hold Instructions: Resume on 08/12/21. carvedilol 25 mg tablet 25 mg PO BID Qty: 180 3RF losartan-hydrochlorothiazide 100-12.5 mg tablet 1 tab PO DAILY metformin 500 mg tablet extended release 24 hr 1,000 mg PO BID spironolactone 25 mg tablet 25 mg PO DAILY Qty: 30 2RF albuterol sulfate 90 mcg/actuation HFA aerosol inhaler 1 inh INHALATION Q6H PRN (Reason: SOB) Qty: 8.5 6RF simvastatin 40 MG tablet 40 mg PO QHS insulin lispro [Humalog KwikPen Insulin] 100 unit/mL insulin pen 26 unit SUBCUT TID colestipol 1 gram tablet 1 g PO DAILY Lantus Solostar U-100 Insulin 100 unit/mL (3 mL) insulin pen 90 unit SUBCUT QPM diltiazem HCl 120 mg capsule,extended release 24hr 120 mg PO DAILY Qty: 90 3RF flecainide 150 mg tablet 150 mg PO Q12H Qty: 60 6RF finasteride 5 mg tablet 5 mg PO DAILY Primary Care Provider: Jeff Subramanian Referrals: Devante Ponce MD [Med Staff - Active Staff] - 3-5 Days Jeff Subramanian MD [Primary Care Provider] - Disposition Disposition: Home, Self Care
[2022-11-21 01:50] VITALS: BP 150/77; PULSE 89; RESP 15; O2SAT 99
[2022-11-21 02:21] LABS: Reflex Troponin-HS? (from REC) Y
== END 2022-11-21 02:06 | disposition home or self-care (01) ==
PROVIDERS: Emergency Provider Emergency Medicine; PCP Family Medicine; Visit Provider Emergency Medicine
DX: R07.9 Chest pain, unspecified (principal); I48.91 Unspecified atrial fibrillation; Z79.4 Long term (current) use of insulin; E11.9 Type 2 diabetes mellitus without complications; Z87.891 Personal history of nicotine dependence; E86.0 Dehydration; E78.00 Pure hypercholesterolemia, unspecified; I10 Essential (primary) hypertension; I25.10 Atherosclerotic heart disease of native coronary artery without angina pectoris; E78.5 Hyperlipidemia, unspecified; R06.02 Shortness of breath
CPT/HCPCS: 71045; 80048; 84484; 85025; 93005; 99285; J7030; A4216

== ENCOUNTER 2022-11-21 06:10 | Observation (INO) | payer MEDICARE, SELFPAY ==
[2022-11-21 06:11] VITALS: BP 168/78; PULSE 82; RESP 26; TEMP 36.8; O2SAT 94; BMI 40.4
--- NOTE | 2022-11-21 06:20 | EKG12_ITS ---
Test Reason : CP Blood Pressure : / mmHG Vent. Rate : 080 BPM Atrial Rate : 080 BPM P-R Int : 250 ms QRS Dur : 162 ms QT Int : 436 ms P-R-T Axes : 045 -79 034 degrees QTc Int : 502 ms Sinus rhythm with 1st degree A-V block Right bundle branch block Left anterior fascicular block Bifascicular block Abnormal ECG Confirmed by ALEXANDREA SAMUEL, REGAN ([id number]), acquisitions editor ENID CLINTON ([id number]) on 11/23/2022 9:04:55 AM Referred By: NADINE Confirmed By:REGAN LECHUGA MD
--- NOTE | 2022-11-21 06:23 | EDS_ITS ---
HPI History of Present Illness Chief Complaint: Chest Pain Informant: patient Narrative Narrative: Arben presents with another episode of chest pain. I saw this patient last night. He had chest pain with exertion. He had negative work-up here. We did discuss the case with his placement coordinator. We all agreed to try outpatient follow-up. Patient states that he felt fine when he went home. But he woke up at around 5:00. He had a little bit of pain in his mid left chest. No shortness of breath with this. No nausea vomiting or diaphoresis. He states he might of had a little bit of lightheadedness. But it was so minor he should even mention it. The pain is better now but he still has some of it. No other changes. [facility] Medical History Acute respiratory failure with hypoxia Atrial fibrillation with RVR (02/05/21) Back pain BPH (benign prostatic hyperplasia) Dietary restriction Enlarged prostate Essential (primary) hypertension Former smoker High cholesterol Hyperlipidemia Hypertension Injury of back Insulin dependent diabetes mellitus Left lower lobe pneumonia Morbid obesity Nonobstructive atherosclerosis of coronary artery Obesity Pneumonia due to COVID-19 virus Psoriasis Restless legs Restrictive airway disease Right bundle branch 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 Shortness of breath on exertion Type 2 diabetes mellitus Wears glasses Wears hearing aid Home Medications simvastatin 40 mg tablet 40 mg PO QHS cholesterol 04/21/15 [History Last Taken Unknown] apixaban 5 mg tablet (Eliquis) 5 mg PO BID #180 tabs 02/22/21 [Rx Last Taken Unknown] aspirin 81 mg tablet,delayed release 81 mg PO DAILY #90 tabs 02/22/21 [Rx Last Taken 07/22/21] carvedilol 25 mg tablet 25 mg PO BID #180 tabs 02/22/21 [Rx Last Taken Unknown] losartan 100 mg-hydrochlorothiazide 12.5 mg tablet 1 tab PO DAILY 06/23/21 [History Last Taken Unknown] diltiazem HCl 120 mg capsule,extended release 24 hr 120 mg PO DAILY #90 caps 07/18/21 [Rx Last Taken Unknown] insulin lispro 100 unit/mL subcutaneous pen (Humalog KwikPen (U-100) Insulin) 26 unit subcut TID diabetes 10/24/21 [History Last Taken Unknown] metformin 500 mg tablet,extended release 24 hr 1,000 mg PO BID 10/24/21 [History Last Taken Unknown] albuterol sulfate 90 mcg/actuation aerosol inhaler 1 inh inhalation Q6H PRN SOB #8.5 grams 11/30/21 [Rx Last Taken Unknown] colestipol 1 gram tablet 1 g PO DAILY 01/30/22 [History Last Taken Unknown] insulin glargine 100 unit/mL (3 mL) subcutaneous pen (Lantus Solostar U-100 Insulin) 90 unit subcut QPM diabetes 01/30/22 [History Last Taken Unknown] spironolactone 25 mg tablet 25 mg PO DAILY #30 tabs 01/30/22 [Rx Last Taken Unknown] flecainide 150 mg tablet 150 mg PO Q12H #60 tabs 05/08/22 [Rx Last Taken Unknown] finasteride 5 mg tablet 5 mg PO DAILY 10/27/22 [History Last Taken Unknown] Allergy/AdvReac Type Severity Reaction Status Date / Time amoxicillin Allergy Rash Verified 11/21/22 06:16 Family History Sister Colon cancer Brother Diabetes Mother Diabetes Heart disease Cancer Father Heart disease Cancer Diabetes Surgical History H/O hemorrhoidectomy H/O wrist surgery History of left heart catheterization (02/07/21) Hx of cholecystectomy Hx of umbilical hernia repair Status post surgical manipulation of ankle joint Social History household members: spouse Smoking Status: Former smoker how long ago did patient quit smokin years ago alcohol intake: never substance use type: does not use caffeine: Yes Type: coffee Number of servings: 1 ROS ROS ED Constitutional Constitutional ED: Denies fever(s) ENT ENT ED: Denies rhinorrhea or sore throat Cardiovascular Cardiovascular: Reports as per HPI Respiratory/Chest Respiratory/Chest: Denies cough or dyspnea Gastrointestinal Gastrointestinal: Denies nausea or vomiting Musculoskeletal Musculoskeletal: Denies back pain or neck pain Neurologic Neurologic: Denies headache(s), paresthesias or weakness Hematologic/Lymphatic Hematologic/Lymphatic: Reports easy bleeding and easy bruising Allergic/Immunologic Allergic/Immunologic ED: Denies urticaria EXAM Physical Exam Narrative Exam Narrative: Patient is awake alert. He looks comfortable. He does not look ill or toxic. Pleasant. Carries on a normal conversation. HEENT shows no trauma. Mucous membranes moist. Neck is difficult to assess but no obvious JVD. Lungs are clear. Saturations are normal at 94% on room air. Heart sounds are regular. I am not hearing murmur. It is regular even though he has a history of intermittent A-fib. On the monitor he looks like sinus rhythm with bundle branch block. I see a rare PVC on the monitor. Abdomen is obese but benign. Extremities are at baseline. Mild edema but no pain. Neurologically he is awake alert and appropriate. He is hard of hearing which is not new. Const Vital Signs: 11/21/22 06:11 Temperature 98.2 F Temperature Source Temporal Pulse Rate 82 Respiratory Rate 26 H Blood Pressure 168/78 H Blood Pressure Mean 108 Pulse Ox 94 Oxygen Delivery Method Room Air MDM MDM MDM Narrative Medical decision making narrative: This patient Simona presents with chest pain. He did have a heart cath within the last 2 years. This showed 40% smooth obstruction and a single vessel. But he also has multiple risk factors. Since he has now had recurrent chest pain when he normally does not get chest pain and this episode occurred at rest rather than with exertion I will call about bringing him in the hospital for further evaluation. I am pending troponin at this time. But his repeat EKG while he is having some discomfort although less, shows no acute process and it looks similar to prior. Lab Data Labs: Laboratory Results - last 24 hr 11/21/22 11/21/22 06:35 06:35 Magnesium 2.0 Troponin I High Sens 8 EKG Initial EKG: Comments: My independent interpretation of the patient's EKG shows a sinus rhythm with first-degree AV block. Overall rate of 80. There is also a right bundle branch block. [place] interval, QRS duration and QTc are all long. This is similar to prior including subtle ST changes in lead III. Management Discussion w/another healthcare provider: Hospitalist Discharge Plan Dx/Rx/DC Orders Clinical Impression: Chest pain, History of atrial fibrillation, Dyspnea on minimal exertion Disposition Disposition: [facility]
--- NOTE | 2022-11-21 06:44 | PCM.HP.STD ---
HPI - General General Date of Admission: 11/21/22 Date of Service: 11/21/22 Chief Complaint: Chest pain. HPI Narrative The patient is a 77 y/o M w/ PMHx: PAF, BPH, HTN, HLD, IDDM, Nonobstructive CAD, Morbid obesity, Former tobacco use who presents to the [facility] ED on 11/21/22 initially earlier in the morning with dyspnea, worse with exertion which is chronic for him however he had onset of chest discomfort in the mid left chest region with no nausea, emesis or diaphoresis with but this subsided and his initial first ED evaluation was unremarkable with discharge to home with plan follow-up outpatient with agreement per Dr. Ponce who Dr. Taylor discussed the case was unfortunately upon returning home the patient had onset of recurrent chest discomfort upon awakening at 5 AM again in the left mid chest but denied specifically any severe dyspnea with this again nor any nausea, emesis or diaphoresis but mild lightheadedness somewhat improved upon ED arrival but still continued with EKG. patient noted his chest discomfort was approximately 3-4 out of 10 in severity initially but now is down to a 1 out of 10. He describes it more as an aching discomfort. Work-up in the ED included T98.2, heart rate 82, BP 160/78, respiratory rate 26, 94% on room air upon evaluation earlier in the morning, pending repeat troponin upon current presentation 6:30 AM, earlier in the morning labs included CBC with WC 12.1 coming 114.7, platelet 249 with left shift, BMP with sodium 134, BUN/creatinine 25/1.22, glucose 153, troponin 8, chest x-ray with stable mild chronic changes with no acute cardiopulmonary findings, previous EKG was sinus rhythm with first-degree AV block with right bundle branch block with no acute evidence of ischemia similar to prior EKGs and repeat this a.m. upon review presentation similar. In the ED patient administered NG. [facility] Medical History Acute respiratory failure with hypoxia Atrial fibrillation with RVR (02/05/21) Back pain BPH (benign prostatic hyperplasia) Dietary restriction Enlarged prostate Essential (primary) hypertension Former smoker High cholesterol Hyperlipidemia Hypertension Injury of back Insulin dependent diabetes mellitus Left lower lobe pneumonia Morbid obesity Nonobstructive atherosclerosis of coronary artery Obesity Pneumonia due to COVID-19 virus Psoriasis Restless legs Restrictive airway disease Right bundle branch 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 Shortness of breath on exertion Type 2 diabetes mellitus Wears glasses Wears hearing aid Home Medications simvastatin 40 mg tablet 40 mg PO QHS cholesterol 04/21/15 [History Last Taken Unknown] apixaban 5 mg tablet (Eliquis) 5 mg PO BID #180 tabs 02/22/21 [Rx Last Taken Unknown] aspirin 81 mg tablet,delayed release 81 mg PO DAILY #90 tabs 02/22/21 [Rx Last Taken 07/22/21] carvedilol 25 mg tablet 25 mg PO BID #180 tabs 02/22/21 [Rx Last Taken Unknown] losartan 100 mg-hydrochlorothiazide 12.5 mg tablet 1 tab PO DAILY 06/23/21 [History Last Taken Unknown] diltiazem HCl 120 mg capsule,extended release 24 hr 120 mg PO DAILY #90 caps 07/18/21 [Rx Last Taken Unknown] insulin lispro 100 unit/mL subcutaneous pen (Humalog KwikPen (U-100) Insulin) 26 unit subcut TID diabetes 10/24/21 [History Last Taken Unknown] metformin 500 mg tablet,extended release 24 hr 1,000 mg PO BID 10/24/21 [History Last Taken Unknown] albuterol sulfate 90 mcg/actuation aerosol inhaler 1 inh inhalation Q6H PRN SOB #8.5 grams 11/30/21 [Rx Last Taken Unknown] colestipol 1 gram tablet 1 g PO DAILY 01/30/22 [History Last Taken Unknown] insulin glargine 100 unit/mL (3 mL) subcutaneous pen (Lantus Solostar U-100 Insulin) 90 unit subcut QPM diabetes 01/30/22 [History Last Taken Unknown] spironolactone 25 mg tablet 25 mg PO DAILY #30 tabs 01/30/22 [Rx Last Taken Unknown] flecainide 150 mg tablet 150 mg PO Q12H #60 tabs 05/08/22 [Rx Last Taken Unknown] finasteride 5 mg tablet 5 mg PO DAILY 10/27/22 [History Last Taken Unknown] Allergy/AdvReac Type Severity Reaction Status Date / Time amoxicillin Allergy Rash Verified 11/21/22 06:16 Family History Sister Colon cancer Brother Diabetes Mother Diabetes Heart disease Cancer Father Heart disease Cancer Diabetes Surgical History H/O hemorrhoidectomy H/O wrist surgery History of left heart catheterization (02/07/21) Hx of cholecystectomy Hx of umbilical hernia repair Status post surgical manipulation of ankle joint Social History household members: spouse Smoking Status: Former smoker how long ago did patient quit smokin years ago alcohol intake: never substance use type: does not use caffeine: Yes Type: coffee Number of servings: 1 ROS ROS Narrative Admission Review of Systems: CONSTITUTIONAL: No weight loss, fever, chills, +weakness or fatigue. HEENT: Eyes: No visual loss, blurred vision, double vision or yellow sclerae. Ears, Nose, Throat: No hearing loss, sneezing, congestion, runny nose or sore throat. SKIN: No rash or itching, lesions, wounds. CARDIOVASCULAR: + Chest pain, lightheadedness. No palpitations, edema, orthopnea, syncopal events. RESPIRATORY: + shortness of breath. No cough or sputum, wheezing, hemoptysis. GASTROINTESTINAL: No anorexia, nausea, vomiting or diarrhea, abdominal pain, melena, BRBPR. GENITOURINARY: + Chronic frequency with BPH, unchanged. No dysuria, urgency or retention. NEUROLOGICAL: + lightheadedness. No headache, syncope, paralysis, ataxia, numbness or tingling in the extremities, focal weakness, change in bowel or bladder control, seizure. MUSCULOSKELETAL: + muscle, back pain, joint pain or stiffness. HEMATOLOGIC: + Easy bleeding or bruising. LYMPHATICS: No enlarged nodes. No history of splenectomy. PSYCHIATRIC: No history of depression or anxiety. ENDOCRINOLOGIC: No reports of sweating, cold or heat intolerance. No polyuria or polydipsia. ALLERGIES: No history of asthma, hives, eczema or rhinitis. Vital Signs Vital Signs Vital Signs: 11/21/22 06:11 Temperature 98.2 F Temperature Source Temporal Pulse Rate 82 Respiratory Rate 26 H Blood Pressure 168/78 H Blood Pressure Mean 108 Pulse Ox 94 Oxygen Delivery Method Room Air Weight Weight: 306 lb 14.135 oz Body Mass Index (BMI) 40.4 Physical Exam Narrative Physical Examination: General: Awake, alert, oriented x 3, extremely hard of hearing, cooperative, seated upright in the ED bed, fatigued but notes chest discomfort improved, currently 1 out of 10. Skin: Normal color, normal turgor, no icterus, no cyanosis. HEENT: AT/NC, EOMI, PERRLA, MMM, no carotid bruits or JVD noted; however, thickened neck makes evaluation difficult. Lungs: Mildly diminished, greater bases, appropriate effort, no rales, ronchi or wheezing. Heart: Regular rate and rhythm; no gallop, rub audible. Abdomen: Soft, morbidly obese, NTTP, difficult to assess distention given habitus, mildly hyperactive bowel sounds, unable to discern HSM secondary to habitus. Extremities: No cyanosis, clubbing, or any marked edema. Neurological: Patient awake, alert, oriented as noted, cognitive function intact; pupils equally reactive to light and accommodation, cranial nerves II-XII grossly normal, moving all 4 extremities, no focal deficits, strength mildly to moderately globally decreased secondary to acute complaints. Psychiatric: Affect appears mildly fatigued otherwise normal, no acute evidence of depressive or anxiety feelings. Assessment & Plan Assessment/Plan (1) Chest pain: PLAN: Plan The patient is a 77 y/o M w/ PMHx: PAF, BPH, HTN, HLD, IDDM, Nonobstructive CAD, Morbid obesity, Former tobacco use who presents to the [facility] ED on 11/21/22 initially earlier in the morning with dyspnea, worse with exertion which is chronic for him however he had onset of chest discomfort in the mid left chest region with no nausea, emesis or diaphoresis with mild lightheadedness but this subsided and his initial first ED evaluation was unremarkable with discharge to home with plan follow-up outpatient with agreement per Dr. Ponce who Dr. Taylor discussed the case was unfortunately upon returning home the patient had onset of recurrent chest discomfort upon awakening at 5 AM again in the left mid chest but denied specifically any severe dyspnea with this again nor any nausea, emesis or diaphoresis but mild lightheadedness somewhat improved upon ED arrival but still continued with EKG. #1. Chest Pain: EKG in ED initial and repeat upon representation with sinus rhythm with right bundle branch block with first-degree AV with no acute evidence of ischemia, CXR w/ chronic changes with no acute cardiopulmonary findings, initial troponin 8 upon prior presentation with repeat pending upon representation early this a.m. Will admit to PCU, place on a monitored bed to assure no acute myocardial infarction with serial cardiac enzymes and EKGs. If repeat serial cardiac enzymes and EKGs remain unremarkable will pursue a.m. cardiac stress testing. FLP in AM. Magnesium level requested. ASA, NG, morphine. #2. Nonobstructive CAD: Patient with prior cardiac catheterization with nonobstructive CAD, will continue aspirin, Eliquis, Coreg, losartan, statin Home regimen. #3. Diabetes mellitus type II: Hold oral home regimen, continue home insulin regimen, n.p.o. status given planned stress testing as noted, accu checks w/ ISS. #4. PAF: We will continue patient home Eliquis, flecainide and diltiazem and Coreg regimen. #5. Hypertension: Continue home regimen including Coreg, losartan, hydrochlorothiazide, spironolactone, diltiazem, PRN hydralazine. #6. Hyperlipidemia: We will continue patient on statin therapy, FLP in AM. #7. Morbid Obesity: Weight loss and lifestyle changes encouraged, nutrition consulted. #8. BPH: We will continue patient home finasteride regimen. #9. Former tobacco use: Encourage continued tobacco cessation. #10. DVT prophylaxis: SCDs, will continue patient on Eliquis regimen. #11. CODE status: Patient CORINE is his daughter who is present and living will is currently in place. Discussed CODE status at length including difference between FULL code, DNR-CCA and DNR-CC status. Following discussions about the differences in these status, requested Full Code status. Advanced Care Planning Face to Face Time: 16 minutes. Admission Evaluation Time spent evaluating chart, patient history, patient evaluation, care planning and discussion with specialists: 55 minutes. Charges/Coding Visit Charges Inpatient E&M: 31792 Init Hosp L2 Procedures Hospitalists Procedures: 52931 Advncd Care Plan 30 Min
--- NOTE | 2022-11-21 06:50 | NURSING ---
pcu obs white cp at rest
[2022-11-21 07:04] VITALS: BP 188/80; PULSE 80; RESP 18; TEMP 36.6; O2SAT 97
[2022-11-21 07:06] LABS: Troponin-I HS 8 pg/mL (3.0-78.0)
--- NOTE | 2022-11-21 08:08 | EKG12_ITS ---
Test Reason : Blood Pressure : / mmHG Vent. Rate : 073 BPM Atrial Rate : 073 BPM P-R Int : 240 ms QRS Dur : 164 ms QT Int : 440 ms P-R-T Axes : 046 -80 028 degrees QTc Int : 484 ms Sinus rhythm with 1st degree A-V block Left axis deviation Right bundle branch block Inferior infarct , age undetermined , cannot be excluded Abnormal ECG Confirmed by ALEXANDREA SAMUEL, REGAN ([id number]), scientific publications editor ENID CLINTON ([id number]) on 11/23/2022 9:10:42 AM Referred By: HERNAN Confirmed By:REGAN LECHUGA MD
[2022-11-21 08:28] VITALS: BMI 39.9
[2022-11-21 08:29] VITALS: BP 163/66; PULSE 77; RESP 16; TEMP 36.3; O2SAT 95
[2022-11-21 08:47] VITALS: BP 152/76; PULSE 82; RESP 16; TEMP 36.3; O2SAT 93
[2022-11-21] MEDS: 0.9% Normal Saline 1,000 ML 100 ML IV (09:21)
[2022-11-21] MEDS: Losartan Potassium 100 MG Tablet PO (09:23)
[2022-11-21] MEDS: Flecainide 150 MG Tablet PO (09:23)
[2022-11-21 09:33] LABS: Troponin-I HS 8 pg/mL (3.0-78.0)
[2022-11-21 09:51] LABS: Bedside Glucose 137 mg/dL (74-106)
[2022-11-21 12:11] LABS: Bedside Glucose 137 mg/dL (74-106)
--- NOTE | 2022-11-21 14:25 | STRESSREP ---
Stress Test Report Date: 11-21-2022 Procedure: Pharmacologic stress nuclear imaging study Indications: Chest pain; abnormal ECG/right bundle branch block pattern; history of CAD Consent: Per the patient Procedure: The patient underwent pharmacologic (Regadenoson 0.4mg ) evaluation with a peak heart rate of 87 beats per minute (61%predicted maximal heart rate) and a resting blood pressure of 150/78 mmHg and a peak blood pressure of 150/78 mmHg. The baseline ECG demonstrated normal sinus rhythm; right bundle branch block. The peak pharmacologic ECG demonstrated continued right bundle branch block with no obvious ECG changes. There were no cardiac dysrhythmias pretest, during pharmacologic infusion, or recovery. There was no complaint of chest discomfort during pharmacologic infusion or recovery. The examination was discontinued secondary to completion of protocol. Impression: 1. Pharmacologic (Regadenoson) evaluation 2. Peak pharmacologic ECG with continued right bundle branch block with no obvious ECG changes. 3. There were no cardiac dysrhythmias pretest, during pharmacologic infusion, or recovery. 4. Nuclear images pending Myocardial perfusion imaging study: Technique: The patient was injected with 14.0 millicuries of technetium 99m Cardiolite and subsequently rest SPECT Cardiolite nuclear imaging was obtained in the horizontal long, vertical long, and short axis views. The patient underwent pharmacologic (Regadenoson) evaluation with a peak heart rate of 87 beats per minute (61% percent predicted maximal heart rate) and a resting blood pressure of 150/78 mmHg and a peak blood pressure of 150/70 mmHg. The patient was injected with 45.0 millicuries of technetium 99m Cardiolite and subsequently stress SPECT Cardiolite nuclear imaging was obtained in the horizontal long, vertical long, and short axis views. A gated Cardiolite study at peak stress was obtained. Interpretation: Rest and stress SPECT Cardiolite nuclear imaging status post realignment, normalization, and attenuation correction demonstrate relative uniform tracer uptake and myocardial perfusion appearing within normal limits. There is end systolic thickening and brightening. The gated Cardiolite study demonstrates myocardial thickening and inward wall motion. The reported LVEF is 57%. Impression: 1. Rest and stress SPECT Cardiolite nuclear imaging demonstrate relative uniform tracer uptake and myocardial perfusion appearing within normal limits. 2. The gated Cardiolite study reports an LVEF of 57%. This note was generated with [employer] software. It may contain incorrect words, spelling, and punctuation that were not noted in checking the note before signing.
[2022-11-21 14:33] LABS: Troponin-I HS 8 pg/mL (3.0-78.0)
[2022-11-21 14:44] VITALS: BP 145/74; PULSE 78; RESP 16; TEMP 36.5; O2SAT 94
[2022-11-21] MEDS: Aspirin E.C. 81 MG Tablet PO (14:46)
[2022-11-21] MEDS: Carvedilol 25 MG Tablet PO (14:46)
[2022-11-21] MEDS: Finasteride 5 MG Tablet PO (14:46)
[2022-11-21] MEDS: dilTIAZem CD 120 MG Capsule PO (14:46)
--- NOTE | 2022-11-21 14:52 | CHAPLAIN ---
Type of Pastoral Visit _x__ Initial Visit ___ Follow-up Visit ___ On-call Visit ___ General Patient Visit ___ Spiritual Assessment ___ Family Conference ___ Bereavement ___ Rapid Response ___ Code Blue ___ Other (describe below) Pastoral Care Referral From _x__ Patient ___ Family ___ Nurse ___ Physician ___ Traffic Warehouse Supervisor ___ Epic Willow Analyst ___ Other (describe below) Sacrament/Intervention _x__ Active listening ___ Anointing ___ Mu-Ism ___ Bereavement ___ Communion _x__ Stephanie exploration ___ _x__ Life review _x__ Prayer ___ Reconciliation ___ Sacrament of Sick _x__ Supportive presence ___ Wedding ___ Other (describe below) Pastoral Comments patient has been seen before; pt reviews the of his two years ago and about his vacations with his daughter since that time; pt welcomes presence and prayer
--- NOTE | 2022-11-21 15:38 | EKG12_ITS ---
Test Reason : Blood Pressure : / mmHG Vent. Rate : 076 BPM Atrial Rate : 076 BPM P-R Int : 246 ms QRS Dur : 168 ms QT Int : 450 ms P-R-T Axes : 045 -80 036 degrees QTc Int : 506 ms Sinus rhythm with 1st degree A-V block Right bundle branch block Left anterior fascicular block Bifascicular block Abnormal ECG Confirmed by ALEXANDREA SAMUEL, REGAN ([id number]), continuity editor ENID CLINTON ([id number]) on 11/23/2022 9:11:25 AM Referred By: HERNAN Confirmed By:REGAN LECHUGA MD
--- NOTE | 2022-11-21 16:25 | PCM.DC.SUM ---
Providers Date of Admission: 11/21/22 Date of Discharge: 11/21/22 Primary Care Physician: Dr. Jeff Subramanian MD Reason For Visit: CHEST PAIN Diagnosis Discharge Diagnosis (1) Chest pain: Status: Acute Code(s): R07.9 - Chest pain, unspecified Medications at Discharge Home Medications simvastatin 40 mg tablet 40 mg PO QHS cholesterol 04/21/15 apixaban 5 mg tablet (Eliquis) 5 mg PO BID #180 tabs 02/22/21 aspirin 81 mg tablet,delayed release 81 mg PO DAILY #90 tabs 02/22/21 carvedilol 25 mg tablet 25 mg PO BID #180 tabs 02/22/21 losartan 100 mg-hydrochlorothiazide 12.5 mg tablet 1 tab PO DAILY 06/23/21 diltiazem HCl 120 mg capsule,extended release 24 hr 120 mg PO DAILY #90 caps 07/18/21 insulin lispro 100 unit/mL subcutaneous pen (Humalog KwikPen (U-100) Insulin) 26 unit subcut TID diabetes 10/24/21 metformin 500 mg tablet,extended release 24 hr 1,000 mg PO BID 10/24/21 albuterol sulfate 90 mcg/actuation aerosol inhaler 1 inh inhalation Q6H PRN SOB #8.5 grams 11/30/21 colestipol 1 gram tablet 1 g PO DAILY 01/30/22 insulin glargine 100 unit/mL (3 mL) subcutaneous pen (Lantus Solostar U-100 Insulin) 90 unit subcut QPM diabetes 01/30/22 spironolactone 25 mg tablet 25 mg PO DAILY #30 tabs 01/30/22 flecainide 150 mg tablet 150 mg PO Q12H #60 tabs 05/08/22 finasteride 5 mg tablet 5 mg PO DAILY 10/27/22 Hospital Course Summary of Care Provided Minutes Spent on Discharge: 35 Hospital Course: Patient is a 77-year-old gentleman with multiple comorbidities admitted with chest discomfort 1. Chest pain The patient was placed on a monitored bed [place] was ruled out with serial cardiac enzymes subsequently underwent nuclear stress test which was negative for stress-induced ischemia 2.Diabetes mellitus type II -patient's oral hypoglycemics held. Placed on long acting insulin, Accu-Cheks a.c. and at bedtime and covered with sliding scale insulin 3. Class II obesity with BMI of 39.9 ? Weight loss advised 4. Paroxysmal atrial fibrillation ? Rate controlled on flecainide diltiazem as well as Coreg patient is also on systemic anticoagulation with apixaban continue 5. Hypertension - Blood pressure controlled, home medications continued with dose adjustment as needed 6. Diabetes mellitus type II -patient's oral hypoglycemics held. Placed on long acting insulin, Accu-Cheks a.c. and at bedtime and covered with sliding scale insulin 7. Dyslipidemia -Patient is on statin therapy, continued at home dose 8. BPH ? Patient is on finasteride did continue 9. DVT prophylaxis ? Patient is on apixaban Weight / BMI Weight Weight: 137.3 kg Body Mass Index (BMI) 39.9 ABG / Lab / Microbiology Data Laboratory: Laboratory Results - last 24 hr 11/21/22 06:35: Troponin I High Sens 8 11/21/22 06:35: Magnesium 2.0 11/21/22 09:08: Troponin I High Sens 8 11/21/22 09:27: POC Glucose 137 H 11/21/22 11:52: POC Glucose 137 H 11/21/22 14:07: Troponin I High Sens 8 Meaningful Use Info Meaningful Use Diagnoses (Choose all that apply): None applicable Discharge Plan Admission Admit Date/Time: 11/21/22 06:45 Attending Provider: Sachin Kebede Primary Care Provider: Jeff Subramanian Consulting Providers: Mariza Stevenson Discharge Orders/Prescriptions Prescriptions: Continued Eliquis 5 mg tablet 5 mg PO BID Qty: 180 3RF Hold Instructions: Resume on 08/12/21. aspirin 81 mg tablet,delayed release (DR/EC) 81 mg PO DAILY Qty: 90 3RF Hold Instructions: Resume on 08/12/21. carvedilol 25 mg tablet 25 mg PO BID Qty: 180 3RF losartan-hydrochlorothiazide 100-12.5 mg tablet 1 tab PO DAILY metformin 500 mg tablet extended release 24 hr 1,000 mg PO BID spironolactone 25 mg tablet 25 mg PO DAILY Qty: 30 2RF albuterol sulfate 90 mcg/actuation HFA aerosol inhaler 1 inh INHALATION Q6H PRN (Reason: SOB) Qty: 8.5 6RF simvastatin 40 MG tablet 40 mg PO QHS insulin lispro [Humalog KwikPen Insulin] 100 unit/mL insulin pen 26 unit SUBCUT TID colestipol 1 gram tablet 1 g PO DAILY Lantus Solostar U-100 Insulin 100 unit/mL (3 mL) insulin pen 90 unit SUBCUT QPM diltiazem HCl 120 mg capsule,extended release 24hr 120 mg PO DAILY Qty: 90 3RF flecainide 150 mg tablet 150 mg PO Q12H Qty: 60 6RF finasteride 5 mg tablet 5 mg PO DAILY Referrals / Follow Up: Jeff Subramanian MD [Primary Care Provider] - Within 2 Weeks Disposition Disposition (needs filled in before D/C Order can be placed): Home, Self Care Charges/Coding Visit Charges Inpatient E&M: 43373 Disch Hosp >30min
[2022-11-21 17:35] LABS: Bedside Glucose 160 mg/dL (74-106)
== END 2022-11-21 18:06 | disposition home or self-care (01) ==
LOC: ED 06:28 → PCU 06:58
PROVIDERS: Admitting Provider Family Medicine; Emergency Provider Emergency Medicine; PCP Family Medicine; Visit Provider Internal Medicine
DX: R07.89 Other chest pain (principal); I48.0 Paroxysmal atrial fibrillation; E66.01 Morbid (severe) obesity due to excess calories; Z79.4 Long term (current) use of insulin; E11.9 Type 2 diabetes mellitus without complications; Z68.39 Body mass index [BMI] 39.0-39.9, adult; E78.00 Pure hypercholesterolemia, unspecified; I10 Essential (primary) hypertension; Z79.01 Long term (current) use of anticoagulants; I25.10 Atherosclerotic heart disease of native coronary artery without angina pectoris; Z87.891 Personal history of nicotine dependence; N40.0 Benign prostatic hyperplasia without lower urinary tract symptoms; Z79.899 Other long term (current) drug therapy; Z79.82 Long term (current) use of aspirin; I44.0 Atrioventricular block, first degree
CPT/HCPCS: 36415; 78452; 82962; 83735; 84484; 93005; 93017; 96360; 96361; 99221; 99285; A9500; J7030; A4216; G0378; J2785

== ENCOUNTER 2023-02-24 21:55 | Emergency (ER) | payer MEDICARE, SELFPAY ==
[2023-02-24 21:56] VITALS: BP 139/69; PULSE 65; RESP 27; TEMP 35.9; O2SAT 94; BMI 40.8
--- NOTE | 2023-02-24 22:12 | EKG12_ITS ---
Test Reason : SYNCOPE Blood Pressure : / mmHG Vent. Rate : 063 BPM Atrial Rate : 063 BPM P-R Int : 260 ms QRS Dur : 182 ms QT Int : 494 ms P-R-T Axes : -06 -74 016 degrees QTc Int : 505 ms Sinus rhythm with 1st degree A-V block Right bundle branch block Left anterior fascicular block Bifascicular block Abnormal ECG Confirmed by ROLAND SAMUEL, MIGUEL ANGEL ([id number]), assistant editor ENID CLINTON ([id number]) on 02/26/2023 1:26:27 PM Referred By: PANCHO Confirmed By:MIGUEL ANGEL WATKINS MD
[2023-02-24] MEDS: Dextrose 50%-Water 25 GM/50 ML DISP.SYRIN IV (22:17)
[2023-02-24 22:21] LABS: Bedside Glucose 79 mg/dL (74-106)
[2023-02-24 22:24] LABS: Absolute Lymphocyte Count 1.89 X10^3/uL (0.83-4.51); Absolute Neutrophil Count 6.7 X10^3/uL (2.0-7.7); Basophil# 0.04 X10^3/uL; Basophil% 0.4 % (0-1); Eosinophil# 0.44 X10^3/uL; Eosinophils% 4.3 % (0-5); Hematocrit 41.9 % (40-54); Hemoglobin 13.9 g/dL (13.0-16.5); Lymphocyte # 1.89 X10^3/ul (0.83-4.51); Lymphocyte % 18.5 % (19-41); Mean Corp Hgb Conc 33.2 g/dL (32-36); Mean Corpuscular Hgb 28.8 pg (27.0-32.0); Mean Corpuscular Volume 86.9 fL (80-94); Mean Platelet Vol. 10.7 fl (6.2-12.0); Monocyte# 1.09 X10^3/uL; Monocyte% 10.7 % (0-10); NRBC Flagged by Analyzer 0 % (0-5); Neutrophil % 65.7 % (47-70); Platelet Count 234 K/mm3 (150-450); RBC Distribution Width CV 13.4 % (11.6-14.6); RBC Distribution Width SD 42.4 fl (35.1-43.9); Red Blood Count 4.82 M/mm3 (4.6-6.2); White Blood Count 10.2 K/mm3 (4.4-11.0)
--- NOTE | 2023-02-24 22:41 | EX.ED.DYSGE1 ---
HPI History of Present Illness Chief Complaint: Hypoglycemia Informant: patient and EMS Narrative Narrative: Patient is a 77-year-old male with past medical history of paroxysmal atrial fibrillation hypertension hyperlipidemia and insulin-dependent diabetes. He states he takes Humalog after every meal and Lantus at night. He states that he did not check his blood sugars this evening but felt like he needed to use his medication so he injected what he believes was his Humalog into his abdomen as he normally does. He states he awoke a little while later feeling lightheaded and dizzy and secondary to his EMS was called. EMS reports when they arrived that the patient was awake and alert but just slow to respond and they checked his blood sugar and it was low at 40. Patient states that there has been no recent sick symptoms such as nausea vomiting fevers chills cough congestion or dysuria PFSH [facility] Medical History Acute respiratory failure with hypoxia Atrial fibrillation with RVR (02/05/21) Back pain BPH (benign prostatic hyperplasia) Dietary restriction Enlarged prostate Essential (primary) hypertension Former smoker High cholesterol Hyperlipidemia Hypertension Injury of back Insulin dependent diabetes mellitus Left lower lobe pneumonia Morbid obesity Nonobstructive atherosclerosis of coronary artery Obesity Pneumonia due to COVID-19 virus Psoriasis Restless legs Restrictive airway disease Right bundle branch 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 Shortness of breath on exertion Type 2 diabetes mellitus Wears glasses Wears hearing aid Home Medications simvastatin 40 mg tablet 40 mg PO QHS cholesterol 04/21/15 [History Last Taken Unknown] apixaban 5 mg tablet (Eliquis) 5 mg PO BID #180 tabs 02/22/21 [Rx Last Taken Unknown] aspirin 81 mg tablet,delayed release 81 mg PO DAILY #90 tabs 02/22/21 [Rx Last Taken 07/22/21] carvedilol 25 mg tablet 25 mg PO BID #180 tabs 02/22/21 [Rx Last Taken Unknown] losartan 100 mg-hydrochlorothiazide 12.5 mg tablet 1 tab PO DAILY 06/23/21 [History Last Taken Unknown] diltiazem HCl 120 mg capsule,extended release 24 hr 120 mg PO DAILY #90 caps 07/18/21 [Rx Last Taken Unknown] insulin lispro 100 unit/mL subcutaneous pen (Humalog KwikPen (U-100) Insulin) 26 unit subcut TID diabetes 02/07/22 [History Last Taken Unknown] metformin 500 mg tablet,extended release 24 hr 1,000 mg PO BID 10/24/21 [History Last Taken Unknown] albuterol sulfate 90 mcg/actuation aerosol inhaler 1 inh inhalation Q6H PRN SOB #8.5 grams 11/30/21 [Rx Last Taken Unknown] colestipol 1 gram tablet 1 g PO DAILY 01/30/22 [History Last Taken Unknown] insulin glargine 100 unit/mL (3 mL) subcutaneous pen (Lantus Solostar U-100 Insulin) 90 unit subcut QPM diabetes 01/30/22 [History Last Taken Unknown] spironolactone 25 mg tablet 25 mg PO DAILY #30 tabs 01/30/22 [Rx Last Taken Unknown] finasteride 5 mg tablet 5 mg PO DAILY 10/27/22 [History Last Taken Unknown] flecainide 150 mg tablet 150 mg PO Q12H #60 tabs 12/06/22 [Rx Last Taken Unknown] Allergy/AdvReac Type Severity Reaction Status Date / Time amoxicillin Allergy Rash Verified 02/24/23 21:59 Family History Sister Colon cancer Brother Diabetes Mother Diabetes Heart disease Cancer Father Heart disease Cancer Diabetes Surgical History H/O hemorrhoidectomy H/O wrist surgery History of left heart catheterization (02/07/21) Hx of cholecystectomy Hx of umbilical hernia repair Status post surgical manipulation of ankle joint Social History household members: spouse Smoking Status: Former smoker how long ago did patient quit smokin years ago alcohol intake: never substance use type: does not use caffeine: Yes Type: coffee Number of servings: 1 ROS ROS ED Constitutional Constitutional ED: Denies chills or fever(s) Eyes Eyes: Denies change in vision ENT ENT ED: Denies sore throat Cardiovascular Cardiovascular: Denies chest pain, palpitations or racing heartbeat Respiratory/Chest Respiratory/Chest: Denies cough or dyspnea Gastrointestinal Gastrointestinal: Reports nausea; Denies abdominal pain, diarrhea or vomiting Genitourinary Genitourinary ED: Denies dysuria or hematuria Musculoskeletal Musculoskeletal: Denies myalgias Integumentary Denies rash Neurologic Neurologic: Reports weakness; Denies headache(s) or paresthesias Hematologic/Lymphatic Hematologic/Lymphatic: Reports easy bleeding and easy bruising EXAM Physical Exam Const Vital Signs: 02/24/23 21:56 02/24/23 22:02 02/25/23 00:30 Temperature 96.6 F L Temperature Source Temporal Pulse Rate 65 62 Respiratory Rate 27 H 17 Respiratory Pattern Tachypnea Blood Pressure 139/69 H 160/80 H Blood Pressure Mean 92 104 Pulse Ox 94 98 Oxygen Delivery Method Room Air 02/25/23 01:15 02/25/23 01:30 02/25/23 01:45 Temperature Temperature Source Pulse Rate 60 61 62 Respiratory Rate 16 15 17 Respiratory Pattern Blood Pressure 152/77 H 144/75 H 145/74 H Blood Pressure Mean 98 96 95 Pulse Ox 98 97 98 Oxygen Delivery Method 02/25/23 02:00 02/25/23 02:53 Temperature Temperature Source Pulse Rate 67 69 Respiratory Rate 15 16 Respiratory Pattern Blood Pressure 148/78 H 151/67 H Blood Pressure Mean 101 95 Pulse Ox 95 95 Oxygen Delivery Method Room Air Room Air Positive well nourished, well developed and obese General Appearance ED: well developed Nutritional Appearance: obese HEENT Reports moist mucous membranes HEENT Narrative: No signs of infection noted in the posterior pharynx Eyes PERRL and EOMs intact bilaterally General Eye ED: Negative for scleral icterus Neck supple Resp normal respiratory effort and clear to auscultation bilaterally Cardio regular rate and regular rhythm Rate: other Other Details: Radial pulses are plus 2 out of 4 bilaterally are equal and symmetric GI normal to inspection, nondistended, normoactive bowel sounds, non-tender, non-distended and no masses GI Narrative: No voluntary guarding or rigidity no pulsatile mass or fluid wave Auscultation: normoactive bowel sounds Palpation: soft Extremity normal to inspection Neuro oriented x3, CN's II-XII intact bilaterally and no sensory deficits noted Neuro Narrative: Cranial nerves II through XII are grossly intact there are no focal neurologic deficits . No pronator drift no dysmetria no truncal ataxia . NIH stroke scale score of 0 Sensorium / Orientation: alert Motor Exam: strength 5/5 throughout Psych Psych Narrative: Patient has a depressed/flat affect Skin no rashes or lesions noted MDM MDM MDM Narrative Medical decision making narrative: Patient presented to the ER afebrile but slightly obtunded and Accu-Chek revealed a blood sugar of 46 consistent with the EMS report. Secondary to this patient had an IV established and was given an amp of D50. With improvement of the blood sugar the patient's mental status also improved. He reported that he did inject himself with insulin without checking his blood sugar but he cannot remember if he used his long-acting Lantus versus his postmeal Humalog. Based on the fact that his blood sugar dropped precipitously this is most likely Humalog that he used. In order to ensure that there is no other cause for his hypoglycemia such as UTI or pancreatitis basic labs were obtained. The patient does have a past medical history of atrial fibrillation but is currently on Eliquis and by exam there is no focal neurologic deficit to suggest stroke. Patient blood work was obtained and revealed no clinically significant findings other than his low blood sugar. However after receiving his amp of D50 his sugar increased to approximately 230 and he was watched in the ER for approximately 5 hours and his blood sugar only trended down to approximately 130. On reevaluation he is awake and alert and states he feels much better. His lipase was just slightly elevated by approximately 20 points but he does not have any midepigastric pain and he has not been having bouts of nausea or vomiting and therefore do not feel there is need for a CT scan. Also patient has been mildly hypertensive but has a history of this and blood pressures in each arm are relatively similar going against any type of dissection and patient has no chest discomfort to suggest this either. Therefore at this time as the patient's blood sugar has remained stable his mental status stable and his work-up overall negative other than hypoglycemia he is otherwise safe for discharge Lab Data Attestation: I reviewed the patient's lab results. Labs: Laboratory Results - last 24 hr 02/24/23 02/24/23 02/24/23 22:03 22:03 22:03 WBC 10.2 RBC 4.82 Hgb 13.9 Hct 41.9 MCV 86.9 MCH 28.8 MCHC 33.2 RDW Std Deviation 42.4 RDW Coeff of Lucia 13.4 Plt Count 234 MPV 10.7 Immature Gran % (Auto) 0.400 Neut % (Auto) 65.7 Lymph % (Auto) 18.5 L Reeves % (Auto) 10.7 H Eos % (Auto) 4.3 Baso % (Auto) 0.4 Absolute Neuts (auto) 6.7 Absolute Lymphs (auto) 1.89 Nucleated RBC % 0 Sodium 138 Potassium 3.9 Chloride 106 Carbon Dioxide 24.0 Anion Gap 8 BUN 20 H Creatinine 1.00 Estim Creat Clear Calc 68.80 Est GFR (MDRD) Af Amer 93 Est GFR (MDRD) Non-Af 77 BUN/Creatinine Ratio 20.0 Glucose 66 L Calcium 8.9 Total Bilirubin 0.20 Direct Bilirubin 0.10 AST 21 ALT 33 Alkaline Phosphatase 61 Troponin I High Sens 7 Total Protein 6.9 Albumin 3.3 Globulin 3.6 Lipase 96 H POC Glucose 79 02/24/23 02/25/23 02/25/23 22:41 00:01 01:50 WBC RBC Hgb Hct MCV MCH MCHC RDW Std Deviation RDW Coeff of Lucia Plt Count MPV Immature Gran % (Auto) Neut % (Auto) Lymph % (Auto) Reeves % (Auto) Eos % (Auto) Baso % (Auto) Absolute Neuts (auto) Absolute Lymphs (auto) Nucleated RBC % Sodium Potassium Chloride Carbon Dioxide Anion Gap BUN Creatinine Estim Creat Clear Calc Est GFR (MDRD) Af Amer Est GFR (MDRD) Non-Af BUN/Creatinine Ratio Glucose Calcium Total Bilirubin Direct Bilirubin AST ALT Alkaline Phosphatase Troponin I High Sens Total Protein Albumin Globulin Lipase POC Glucose 162 H 233 H 115 H Discharge Plan Triage Chief Complaint: Hypoglycemia ED Provider: Mani Esquivel Dx/Rx/DC Orders Clinical Impression: Hypoglycemia, Essential (primary) hypertension, Paroxysmal atrial fibrillation, Insulin dependent diabetes mellitus Instructions: Hypoglycemia (Low Blood Sugar), Blood Sugar Check Steps Prescriptions: No Action Eliquis 5 mg tablet 5 mg PO BID Qty: 180 3RF Hold Instructions: Resume on 08/12/21. aspirin 81 mg tablet,delayed release (DR/EC) 81 mg PO DAILY Qty: 90 3RF Hold Instructions: Resume on 08/12/21. carvedilol 25 mg tablet 25 mg PO BID Qty: 180 3RF losartan-hydrochlorothiazide 100-12.5 mg tablet 1 tab PO DAILY metformin 500 mg tablet extended release 24 hr 1,000 mg PO BID spironolactone 25 mg tablet 25 mg PO DAILY Qty: 30 2RF albuterol sulfate 90 mcg/actuation HFA aerosol inhaler 1 inh INHALATION Q6H PRN (Reason: SOB) Qty: 8.5 6RF simvastatin 40 MG tablet 40 mg PO QHS insulin lispro [Humalog KwikPen Insulin] 100 unit/mL insulin pen 26 unit SUBCUT TID colestipol 1 gram tablet 1 g PO DAILY Lantus Solostar U-100 Insulin 100 unit/mL (3 mL) insulin pen 90 unit SUBCUT QPM diltiazem HCl 120 mg capsule,extended release 24hr 120 mg PO DAILY Qty: 90 3RF finasteride 5 mg tablet 5 mg PO DAILY flecainide 150 mg tablet 150 mg PO Q12H Qty: 60 11RF Primary Care Provider: Jeff Subramanian Referrals: Jeff Subramanian MD [Primary Care Provider] - Disposition Disposition: Home, Self Care Discharge Date/Time: 02/25/23 03:09
[2023-02-24 23:00] LABS: Bedside Glucose 162 mg/dL (74-106)
[2023-02-24 23:12] LABS: AST(SGOT) 21 U/L (15-37); Alanine Aminotransfer ALT/SGPT 33 U/L (16-61); Albumin, Serum 3.3 g/dL (3.2-5.0); Alkaline Phosphatase 61 U/L (45-117); Anion Gap 8 (5-15); BUN 20 mg/dL (7-18); Calcium,Total 8.9 mg/dL (8.5-10.1); Chloride 106 mmol/L (98-107); EST Glomerular Filtration Rate 77 mL/min (>60); Est Glom Filt Rate - Afr Amer 93 mL/min (>60); Globulin 3.6 g/dL (2.2-4.2); Glucose 66 mg/dL (74-106); Lipase 96 U/L (13-75); Potassium 3.9 mmol/L (3.5-5.1); Protein, Total 6.9 g/dL (6.4-8.2); Sodium Level 138 mmol/L (136-145); Troponin-I HS 7 pg/mL (3.0-78.0)
[2023-02-25] VITALS (7 sets, daily range): BP systolic 144–160; BP diastolic 67–80; PULSE 60–69; RESP 14–22; O2SAT 95–98
[2023-02-25 00:22] LABS: Bedside Glucose 233 mg/dL (74-106)
[2023-02-25 02:09] LABS: Bedside Glucose 115 mg/dL (74-106)
[2023-02-25 03:04] LABS: Bedside Glucose 132 mg/dL (74-106)
== END 2023-02-25 03:09 | disposition home or self-care (01) ==
PROVIDERS: Emergency Provider Emergency Medicine; PCP Family Medicine; Visit Provider Emergency Medicine
DX: E11.649 Type 2 diabetes mellitus with hypoglycemia without coma (principal); I48.0 Paroxysmal atrial fibrillation; Z79.4 Long term (current) use of insulin; I10 Essential (primary) hypertension; I25.10 Atherosclerotic heart disease of native coronary artery without angina pectoris; E78.00 Pure hypercholesterolemia, unspecified; Z87.891 Personal history of nicotine dependence
CPT/HCPCS: 80048; 80076; 82962; 83690; 84484; 85025; 93005; 99285; A4216

== ENCOUNTER 2023-03-01 20:28 | Emergency (ER) | payer MEDICARE, SELFPAY ==
[2023-03-01 20:28] VITALS: BP 152/51; PULSE 85; RESP 18; TEMP 36.6; O2SAT 94; BMI 40.0
--- NOTE | 2023-03-01 20:49 | EKG12_ITS ---
Test Reason : ABD PAIN Blood Pressure : / mmHG Vent. Rate : 076 BPM Atrial Rate : 076 BPM P-R Int : 184 ms QRS Dur : 168 ms QT Int : 428 ms P-R-T Axes : 019 -77 028 degrees QTc Int : 481 ms Normal sinus rhythm Right bundle branch block Left anterior fascicular block Bifascicular block Abnormal ECG Confirmed by LAURA SAMUEL, SMITHA ([id number]), editor publications [employer] [place] ([id number]) on 03/05/2023 10:44:02 A M Referred By: Confirmed By:LUANA SANCHEZ MD
--- NOTE | 2023-03-01 20:50 | EDS_ITS ---
HPI HPI - GI History of Present Illness Chief Complaint: Abd Pain Informant: patient and family Narrative Narrative: Patient presents with a nauseated feeling in his abdomen. Patient denies any pain to me. He states his abdomen does not hurt but he feels like he might throw up. This started today. He did eat dinner but did not finish it because the nausea. But he has never vomited. His last bowel movement was yesterday and seemed normal. He does not think he has passed gas this afternoon but not 100% sure. He has no back pain. He has history of cholecystectomy but no other abdominal surgery. He denies known history of AAA. He was in the hospital here Sunday for low sugars. But that has been better. He was eating and drinking and doing well between then and now. He is on Eliquis but reports no bleeding that he knows of. No blood in the stool. Nothing specifically makes this better or worse. [facility] Medical History Acute respiratory failure with hypoxia Atrial fibrillation with RVR (02/05/21) Back pain BPH (benign prostatic hyperplasia) Dietary restriction Enlarged prostate Essential (primary) hypertension Former smoker High cholesterol Hyperlipidemia Hypertension Injury of back Insulin dependent diabetes mellitus Left lower lobe pneumonia Morbid obesity Nonobstructive atherosclerosis of coronary artery Obesity Pneumonia due to COVID-19 virus Psoriasis Restless legs Restrictive airway disease Right bundle branch 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 Shortness of breath on exertion Type 2 diabetes mellitus Wears glasses Wears hearing aid Home Medications simvastatin 40 mg tablet 40 mg PO QHS cholesterol 04/21/15 [History Last Taken Unknown] apixaban 5 mg tablet (Eliquis) 5 mg PO BID #180 tabs 02/22/21 [Rx Last Taken Unknown] aspirin 81 mg tablet,delayed release 81 mg PO DAILY #90 tabs 02/22/21 [Rx Last Taken 07/22/21] carvedilol 25 mg tablet 25 mg PO BID #180 tabs 02/22/21 [Rx Last Taken Unknown] losartan 100 mg-hydrochlorothiazide 12.5 mg tablet 1 tab PO DAILY 06/23/21 [History Last Taken Unknown] diltiazem HCl 120 mg capsule,extended release 24 hr 120 mg PO DAILY #90 caps 07/18/21 [Rx Last Taken Unknown] insulin lispro 100 unit/mL subcutaneous pen (Humalog KwikPen (U-100) Insulin) 26 unit subcut TID diabetes 10/24/21 [History Last Taken Unknown] metformin 500 mg tablet,extended release 24 hr 1,000 mg PO BID 10/24/21 [History Last Taken Unknown] albuterol sulfate 90 mcg/actuation aerosol inhaler 1 inh inhalation Q6H PRN SOB #8.5 grams 11/30/21 [Rx Last Taken Unknown] colestipol 1 gram tablet 1 g PO DAILY 01/30/22 [History Last Taken Unknown] insulin glargine 100 unit/mL (3 mL) subcutaneous pen (Lantus Solostar U-100 Insulin) 90 unit subcut QPM diabetes 01/30/22 [History Last Taken Unknown] spironolactone 25 mg tablet 25 mg PO DAILY #30 tabs 01/30/22 [Rx Last Taken Unknown] finasteride 5 mg tablet 5 mg PO DAILY 10/27/22 [History Last Taken Unknown] flecainide 150 mg tablet 150 mg PO Q12H #60 tabs 12/06/22 [Rx Last Taken Unknown] ondansetron 4 mg disintegrating tablet 4 mg PO Q8H PRN PRN Nausea #10 tabs 03/01/23 [Rx Last Taken Unknown] Allergy/AdvReac Type Severity Reaction Status Date / Time amoxicillin Allergy Rash Verified 03/01/23 20:35 Family History Sister Colon cancer Brother Diabetes Mother Diabetes Heart disease Cancer Father Heart disease Cancer Diabetes Surgical History H/O hemorrhoidectomy H/O wrist surgery History of left heart catheterization (02/07/21) Hx of cholecystectomy Hx of umbilical hernia repair Status post surgical manipulation of ankle joint Social History household members: spouse Smoking Status: Former smoker how long ago did patient quit smokin years ago alcohol intake: never substance use type: does not use caffeine: Yes Type: coffee Number of servings: 1 ROS ROS ED ROS Narrative A complete review of systems was performed and is negative except as documented in the history of present illness. Some specific details below. Constitutional: No recent fevers or chills. EYE: No visual complaints or pain. ENT: No difficulty swallowing. No swelling. No pain. No GERD. CV: No chest pain or palpitations. Respiratory: No dyspnea. No hemoptysis. No difficulty taking breaths. He has chronic dyspnea but is no different than normal. GI: Please see history of present illness. : No frequency dysuria or hematuria. Musculoskeletal: No recent trauma. No pains. No pain in his back. Skin: No rash. Nondiaphoretic. Neuro: No weakness or numbness. No paresthesias in his extremities. Endocrine: No polyuria or polydipsia. EXAM Physical Exam Narrative Exam Narrative: CONSTITUTIONAL: Patient is nontoxic in appearance. The patient looks comfortable. HEENT: No notable trauma. Mucous membranes minimally dry. No sinus tenderness. No indication of pain with swallowing. EYES: No conjunctival injection. No icterus. CARDIOVASCULAR: Regular rate. He has a history of atrial fibrillation but at this time it sounds like he has a regular rhythm. An EKG will also be done. No notable murmur. No JVD. RESPIRATORY: No respiratory distress. Breathing is unlabored. No wheezes. No rhonchi. No rales. No pain with a deep breath. GASTROINTESTINAL: Obesity limits exam but he and family member states that his abdomen does not look distended. Bowel sounds are hard to hear but do sound somewhat normal.. No tenderness in any area.. No guarding. No rebound. No palpable mass. No bruit. I do not feel any inguinal, umbilical or other hernia. GENITOURINARY: No tenderness over the bladder. No CVA tenderness. No erythema or tenderness or swelling. MUSCULOSKELETAL: Atraumatic. Trace equal peripheral edema. No cord. No tenderness along the deep venous system. No asymmetry. No mottling or indication of poor blood flow. NEUROLOGICAL: Patient is alert and appropriate. No focal deficit noted. SKIN: No noted rashes. No diaphoresis. PSYCHIATRIC: Patient is calm. Mood is appropriate. Const Vital Signs: 03/01/23 20:28 Temperature 97.8 F Temperature Source Temporal Pulse Rate 85 Respiratory Rate 18 Blood Pressure 152/51 H Blood Pressure Mean 84 Pulse Ox 94 Oxygen Delivery Method Room Air MDM MDM MDM Narrative Medical decision making narrative: Patient CBC shows a minimal nonspecific elevation in the white count. Hemoglobin is normal at 14. Platelets are normal. Patient's electrolytes are relatively normal other than he does have a slight bump of his BUN and creatinine. He was given a little bit of IV fluids here. Glucose is well controlled at 132. LFTs show no marked abnormalities. Lipase is 82 but this is down lower than a was on Sunday. Patient's urinalysis shows no sign of infection My independent interpretation of the CT of the abdomen really shows no acute process. No sign of obstruction or ileus or diverticulitis. Final reading does show some thickening of the bladder. But his urine is clean and he is not having dysuria so I do not think this represents an acute UTI. This can be followed as an outpatient. I checked with the patient again. He states his nausea essentially gone and he wants to go home. His was concerned why his sugars have been high and low and his blood pressures been high and low at home. I am not exactly sure the cause of this. Everything has been stable here. It is even possible that they are having problems with the machine at home which I think should be checked. We did discuss reasons to return. I will write for some Zofran to go. Lab Data Attestation: I reviewed the patient's lab results. Labs: Laboratory Results - last 24 hr 03/01/23 03/01/23 03/01/23 20:37 21:00 21:00 WBC 11.4 H RBC 4.89 Hgb 14.0 Hct 42.1 MCV 86.1 MCH 28.6 MCHC 33.3 RDW Std Deviation 41.3 RDW Coeff of Lucia 13.2 Plt Count 266 MPV 10.9 Immature Gran % (Auto) 0.300 Neut % (Auto) 62.9 Lymph % (Auto) 21.9 [place] % (Auto) 11.2 H Eos % (Auto) 3.2 Baso % (Auto) 0.5 Absolute Neuts (auto) 7.2 Absolute Lymphs (auto) 2.50 Nucleated RBC % 0 Sodium 133 L Potassium 3.8 Chloride 101 Carbon Dioxide 24.0 Anion Gap 8 BUN 35 H Creatinine 1.41 H Estim Creat Clear Calc 48.80 Est GFR (MDRD) Af Amer 62 Est GFR (MDRD) Non-Af 52 L BUN/Creatinine Ratio 24.8 H Glucose 132 H Calcium 9.1 Total Bilirubin 0.30 AST 16 ALT 33 Alkaline Phosphatase 73 Troponin I High Sens 7 Total Protein 7.1 Albumin 3.5 Globulin 3.6 Albumin/Globulin Ratio 1.0 Lipase 82 H Urine Color Yellow Urine Clarity Clear Urine pH 5.0 Ur Specific [place] 1.025 Urine Protein 15 H Urine Glucose (UA) 250 H Urine Ketones 5 H Urine Occult Blood 50 H Urine Nitrite Negative Urine Bilirubin Negative Urine Urobilinogen Normal Ur Leukocyte Esterase Negative Urine RBC 0-5 SEEN Urine WBC 0-5 SEEN Ur Squamous Epith Cells 0-5 SEEN Urine Bacteria 0 SEEN Hyaline Casts 0-5 SEEN Urine Mucus 0 SEEN Radiography Diagnostic Testing: Clinical Impression(s) from Imaging Studies Abdomen/Pelvis CT 03/01/23 21:38 IMPRESSION: Circumferential urinary bladder wall thickening suspicious for acute cystitis. Electronically Signed: Robert Almeida MD at 22:00 EDT , EKG Initial EKG: Comments: My independent interpretation the patient's EKG done for generalized weakness nausea in an elderly male shows normal sinus rhythm with a rate of 76. He does have a right bundle branch block. Mild nonspecific ST and T wave changes related to his bundle branch blocks but no sign of acute ST elevation or depression. LA interval is normal. QRS duration and QTc are bit long. Discharge Plan Triage Chief Complaint: Abd Pain ED Provider: Kodi Taylor Dx/Rx/DC Orders Clinical Impression: Nausea, Mild dehydration, Creatinine elevation Instructions: ED Dehydration (Adult) Prescriptions: New ondansetron [ondansetron] 4 mg tablet,disintegrating 4 mg PO Q8H PRN PRN (Reason: Nausea) Qty: 10 0RF No Action Eliquis 5 mg tablet 5 mg PO BID Qty: 180 3RF Hold Instructions: Resume on 08/12/21. aspirin 81 mg tablet,delayed release (DR/EC) 81 mg PO DAILY Qty: 90 3RF Hold Instructions: Resume on 08/12/21. carvedilol 25 mg tablet 25 mg PO BID Qty: 180 3RF losartan-hydrochlorothiazide 100-12.5 mg tablet 1 tab PO DAILY metformin 500 mg tablet extended release 24 hr 1,000 mg PO BID spironolactone 25 mg tablet 25 mg PO DAILY Qty: 30 2RF albuterol sulfate 90 mcg/actuation HFA aerosol inhaler 1 inh INHALATION Q6H PRN (Reason: SOB) Qty: 8.5 6RF simvastatin 40 MG tablet 40 mg PO QHS insulin lispro [Humalog KwikPen Insulin] 100 unit/mL insulin pen 26 unit SUBCUT TID colestipol 1 gram tablet 1 g PO DAILY Lantus Solostar U-100 Insulin 100 unit/mL (3 mL) insulin pen 90 unit SUBCUT QPM diltiazem HCl 120 mg capsule,extended release 24hr 120 mg PO DAILY Qty: 90 3RF finasteride 5 mg tablet 5 mg PO DAILY flecainide 150 mg tablet 150 mg PO Q12H Qty: 60 11RF Primary Care Provider: Jeff Subramanian Referrals: Jeff Subramanian MD [Primary Care Provider] - 3-5 Days Disposition Disposition: Home, Self Care
[2023-03-01] MEDS: Ondansetron 4 MG/2 ML Vial IV (21:04)
[2023-03-01 21:09] LABS: Absolute Neutrophil Count 7.2 X10^3/uL (2.0-7.7); Basophil# 0.06 X10^3/uL; Basophil% 0.5 % (0-1); Eosinophil# 0.36 X10^3/uL; Eosinophils% 3.2 % (0-5); Hematocrit 42.1 % (40-54); Lymphocyte % 21.9 % (19-41); Mean Corp Hgb Conc 33.3 g/dL (32-36); Mean Corpuscular Hgb 28.6 pg (27.0-32.0); Mean Corpuscular Volume 86.1 fL (80-94); Mean Platelet Vol. 10.9 fl (6.2-12.0); Monocyte# 1.28 X10^3/uL; Monocyte% 11.2 % (0-10); NRBC Flagged by Analyzer 0 % (0-5); Neutrophil # 7.16 X10^3/uL (2.7-7.7); Neutrophil % 62.9 % (47-70); Platelet Count 266 K/mm3 (150-450); RBC Distribution Width CV 13.2 % (11.6-14.6); RBC Distribution Width SD 41.3 fl (35.1-43.9); Red Blood Count 4.89 M/mm3 (4.6-6.2); White Blood Count 11.4 K/mm3 (4.4-11.0)
[2023-03-01 21:17] LABS: Color, Urine Yellow (Yellow); Glucose, Dipstick 250 mg/dl (Normal); Ketone-Dipstick 5 mg/dl (Negative); Leukocyte Esterase-Dipstick Negative /ul (Negative); Nitrite-Dipstick Negative (Negative); Occult Blood-Urine 50 /ul (Negative); Protein-Dipstick 15 mg/dl (Negative); Specific Gravity, Urine 1.025 (1.002-1.030); Urine Bilirubin Dipstick Negative (Negative); Urine Clarity Clear (Clear); Urine Urobilinogen Normal (Normal)
[2023-03-01 21:18] LABS: Bacteria 0 SEEN /hpf (None Seen); Mucous, Urine 0 SEEN /hpf (<or=2+)
[2023-03-01 21:25] LABS: Hyaline Cast 0-5 SEEN /lpf (0-5); Red Blood Cells-Urine 0-5 SEEN /hpf (0-5); Squamous Epithelial Cells - UA 0-5 SEEN /hpf (0-5); White Blood Cells 0-5 SEEN /hpf (0-5)
[2023-03-01 21:28] LABS: AST(SGOT) 16 U/L (15-37); Alanine Aminotransfer ALT/SGPT 33 U/L (16-61); Albumin, Serum 3.5 g/dL (3.2-5.0); Alkaline Phosphatase 73 U/L (45-117); Anion Gap 8 (5-15); BUN 35 mg/dL (7-18); BUN/Creat Ratio 24.8 RATIO (10-20); Calcium,Total 9.1 mg/dL (8.5-10.1); Chloride 101 mmol/L (98-107); Creatinine, Serum 1.41 mg/dL (0.70-1.30); EST Glomerular Filtration Rate 52 mL/min (>60); Est Glom Filt Rate - Afr Amer 62 mL/min (>60); Globulin 3.6 g/dL (2.2-4.2); Glucose 132 mg/dL (74-106); Lipase 82 U/L (13-75); Potassium 3.8 mmol/L (3.5-5.1); Protein, Total 7.1 g/dL (6.4-8.2); Sodium Level 133 mmol/L (136-145); Troponin-I HS 7 pg/mL (3.0-78.0)
--- NOTE | 2023-03-01 21:38 | CT_ITS ---
STUDY: CT ABDOMEN AND PELVIS WITH CONTRAST REASON FOR EXAM: Male, 77 years old. Pain, nausea RADIATION DOSAGE (If Supplied By Facility): CTDIvol = ( 17.05 ) mGy, DLP = ( 1458.46 ) mGycm TECHNIQUE: IV 100mL Isovue-370 was administered. Transaxial images were obtained from the dome of the diaphragm to the symphysis pubis. Multiplanar coronal and sagittal images were reformatted. Individualized Dose Optimization Techniques Were Used For This CT. COMPARISON: 09/19/2021 FINDINGS: Bibasilar chronic lung disease. Normal liver. Normal gallbladder and extrahepatic biliary system. Normal spleen. Normal pancreas. Normal bilateral adrenal glands. Normal visualized stomach. Normal small intestine. Normal colon. The appendix is visualized and appears normal. Normal abdominal aorta. No retroperitoneal adenopathy. Normal right kidney. Normal left kidney. Circumferential urinary bladder wall thickening. Normal visualized prostate gland. Normal abdominal wall. There are diffuse degenerative changes of the visualized lumbar spine. CT/Abdomen/Pelvis W IV Cont ONLY IMPRESSION: Circumferential urinary bladder wall thickening suspicious for acute cystitis. Electronically Signed: Robert Almeida MD at 22:00 EDT ,
[2023-03-01 22:57] VITALS: BP 132/67; PULSE 73; RESP 16; O2SAT 95
== END 2023-03-01 23:06 | disposition home or self-care (01) ==
PROVIDERS: Emergency Provider Emergency Medicine; PCP Family Medicine; Visit Provider Emergency Medicine
DX: R11.0 Nausea (principal); I48.91 Unspecified atrial fibrillation; Z79.4 Long term (current) use of insulin; E11.9 Type 2 diabetes mellitus without complications; E86.0 Dehydration; I10 Essential (primary) hypertension; I25.10 Atherosclerotic heart disease of native coronary artery without angina pectoris; Z87.891 Personal history of nicotine dependence; E78.00 Pure hypercholesterolemia, unspecified; R79.89 Other specified abnormal findings of blood chemistry; Z79.01 Long term (current) use of anticoagulants; Z79.899 Other long term (current) drug therapy; Z79.82 Long term (current) use of aspirin; Z79.84 Long term (current) use of oral hypoglycemic drugs; N40.0 Benign prostatic hyperplasia without lower urinary tract symptoms; Z90.49 Acquired absence of other specified parts of digestive tract
CPT/HCPCS: 74177; 80053; 81001; 83690; 84484; 85025; 93005; 96361; 96374; 99282; J7040; Q9967; A4216; J2405

== ENCOUNTER 2023-03-31 00:16 | Emergency (ER) | payer MEDICARE, SELFPAY ==
[2023-03-31 00:17] VITALS: BP 121/57; PULSE 67; RESP 18; TEMP 36.6; O2SAT 94
--- NOTE | 2023-03-31 00:40 | CT_ITS ---
STUDY: CT ABDOMEN AND PELVIS WITH CONTRAST - URINARY TRACT REASON FOR EXAM: Male, 77 years old. abd pain RADIATION DOSAGE (If Supplied By Facility): CTDIvol = ( 22.07 ) mGy, DLP = ( 1420.54 ) mGycm TECHNIQUE: IV 100mL Isovue-300 was administered. Transaxial images were obtained from the dome of the diaphragm to the symphysis pubis in the arterial, nephrographic and excretory phases. Multiplanar coronal and sagittal images were reformatted. Individualized Dose Optimization Techniques Were Used For This CT. COMPARISON: Mar 01 2023 FINDINGS: Subpleural reticular interstitial opacities in the lung bases suggesting mild chronic interstitial lung disease. The visualized portions of the heart are within normal limits. Normal liver. Normal gallbladder and extrahepatic biliary system. Normal spleen. Normal pancreas. Normal bilateral adrenal glands. Normal visualized stomach. Normal small intestine. Normal colon. The appendix is visualized and appears normal. Normal abdominal aorta. No retroperitoneal adenopathy. Normal right kidney. Normal left kidney. Normal urinary bladder. Normal abdominal wall. Normal osseous structures. CT/Abdomen/Pelvis W IV Cont ONLY IMPRESSION: There is no acute abnormality in the abdomen or pelvis. Electronically Signed: Zahira Wilson MD at 2:59 EDT ,
[2023-03-31 00:49] LABS: Absolute Lymphocyte Count 1.83 X10^3/uL (0.83-4.51); Absolute Neutrophil Count 8.5 X10^3/uL (2.0-7.7); Basophil# 0.06 X10^3/uL; Basophil% 0.5 % (0-1); Eosinophil# 0.42 X10^3/uL; Eosinophils% 3.4 % (0-5); Hematocrit 41.8 % (40-54); Hemoglobin 13.6 g/dL (13.0-16.5); Lymphocyte # 1.83 X10^3/ul (0.83-4.51); Lymphocyte % 14.8 % (19-41); Mean Corp Hgb Conc 32.5 g/dL (32-36); Mean Corpuscular Hgb 28.7 pg (27.0-32.0); Mean Corpuscular Volume 88.2 fL (80-94); Monocyte# 1.55 X10^3/uL; Monocyte% 12.5 % (0-10); NRBC Flagged by Analyzer 0 % (0-5); Neutrophil # 8.46 X10^3/uL (2.7-7.7); Neutrophil % 68.4 % (47-70); POSITIVE DIFFERENTIAL YES; Platelet Count 249 K/mm3 (150-450); RBC Distribution Width CV 13.1 % (11.6-14.6); RBC Distribution Width SD 42.4 fl (35.1-43.9); Red Blood Count 4.74 M/mm3 (4.6-6.2); White Blood Count 12.4 K/mm3 (4.4-11.0)
[2023-03-31] MEDS: 0.9% Normal Saline 1,000 ML 999 ML IV (00:58)
[2023-03-31 01:10] LABS: AST(SGOT) 27 U/L (15-37); Alanine Aminotransfer ALT/SGPT 32 U/L (16-61); Albumin, Serum 3.4 g/dL (3.2-5.0); Alkaline Phosphatase 72 U/L (45-117); Anion Gap 7 (5-15); BUN 25 mg/dL (7-18); BUN/Creat Ratio 14.8 RATIO (10-20); Bilirubin, Direct 0.07 mg/dL (0.00-0.30); Calcium,Total 8.7 mg/dL (8.5-10.1); Chloride 103 mmol/L (98-107); Creatinine, Serum 1.69 mg/dL (0.70-1.30); EST Glomerular Filtration Rate 42 mL/min (>60); Est Glom Filt Rate - Afr Amer 51 mL/min (>60); Globulin 3.8 g/dL (2.2-4.2); Glucose 81 mg/dL (74-106); Lipase 433 U/L (13-75); Potassium 4.6 mmol/L (3.5-5.1); Protein, Total 7.2 g/dL (6.4-8.2); Sodium Level 135 mmol/L (136-145)
[2023-03-31 01:12] LABS: Differential Indicated SCAN CRITERIA MET
[2023-03-31 01:16] LABS: Differential Comment SCANNED
[2023-03-31 04:25] VITALS: BP 133/63; PULSE 71; RESP 18; O2SAT 96
--- NOTE | 2023-03-31 04:37 | EX.ED.DYSGE1 ---
HPI History of Present Illness Chief Complaint: General Illness Informant: patient and family Narrative Narrative: Patient is a 77-year-old male with past medical history of paroxysmal atrial fibrillation hypertension hyperlipidemia as well as diabetes. Patient states that today he just did not feel good. Daughter states she was checking his blood pressure during this and he was running low at approximately 90/50. Patient does have a history of hypertension but daughter states she is the one that sets out his pills and that there is little chance he had an inadvertent overdose. Because the patient feels unwell and blood pressure has been low there was concern for an infectious process and secondary to his he presents to the hospital for evaluation [facility] Medical History Acute respiratory failure with hypoxia Atrial fibrillation with RVR (02/05/21) Back pain BPH (benign prostatic hyperplasia) Dietary restriction Enlarged prostate Essential (primary) hypertension Former smoker High cholesterol Hyperlipidemia Hypertension Injury of back Insulin dependent diabetes mellitus Left lower lobe pneumonia Morbid obesity Nonobstructive atherosclerosis of coronary artery Obesity Pneumonia due to COVID-19 virus Psoriasis Restless legs Restrictive airway disease Right bundle branch 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 Shortness of breath on exertion Type 2 diabetes mellitus Wears glasses Wears hearing aid Home Medications simvastatin 40 mg tablet 40 mg PO QHS cholesterol 04/21/15 [History Last Taken Unknown] apixaban 5 mg tablet (Eliquis) 5 mg PO BID #180 tabs 02/22/21 [Rx Last Taken Unknown] aspirin 81 mg tablet,delayed release 81 mg PO DAILY #90 tabs 02/22/21 [Rx Last Taken 07/22/21] carvedilol 25 mg tablet 25 mg PO BID #180 tabs 02/22/21 [Rx Last Taken Unknown] losartan 100 mg-hydrochlorothiazide 12.5 mg tablet 1 tab PO DAILY 06/23/21 [History Last Taken Unknown] diltiazem HCl 120 mg capsule,extended release 24 hr 120 mg PO DAILY #90 caps 07/18/21 [Rx Last Taken Unknown] insulin lispro 100 unit/mL subcutaneous pen (Humalog KwikPen (U-100) Insulin) 26 unit subcut TID diabetes 10/24/21 [History Last Taken Unknown] metformin 500 mg tablet,extended release 24 hr 1,000 mg PO BID 10/24/21 [History Last Taken Unknown] albuterol sulfate 90 mcg/actuation aerosol inhaler 1 inh inhalation Q6H PRN SOB #8.5 grams 11/30/21 [Rx Last Taken Unknown] colestipol 1 gram tablet 1 g PO DAILY 01/30/22 [History Last Taken Unknown] insulin glargine 100 unit/mL (3 mL) subcutaneous pen (Lantus Solostar U-100 Insulin) 90 unit subcut QPM diabetes 01/30/22 [History Last Taken Unknown] spironolactone 25 mg tablet 25 mg PO DAILY #30 tabs 01/30/22 [Rx Last Taken Unknown] finasteride 5 mg tablet 5 mg PO DAILY 10/27/22 [History Last Taken Unknown] flecainide 150 mg tablet 150 mg PO Q12H #60 tabs 12/06/22 [Rx Last Taken Unknown] ondansetron 4 mg disintegrating tablet 4 mg PO Q8H PRN PRN Nausea #10 tabs 03/01/23 [Rx Last Taken Unknown] Allergy/AdvReac Type Severity Reaction Status Date / Time amoxicillin Allergy Rash Verified 03/01/23 20:35 Family History Sister Colon cancer Brother Diabetes Mother Diabetes Heart disease Cancer Father Heart disease Cancer Diabetes Surgical History H/O hemorrhoidectomy H/O wrist surgery History of left heart catheterization (02/07/21) Hx of cholecystectomy Hx of umbilical hernia repair Status post surgical manipulation of ankle joint Social History household members: spouse Smoking Status: Former smoker how long ago did patient quit smokin years ago alcohol intake: never substance use type: does not use caffeine: Yes Type: coffee Number of servings: 1 ROS ROS ED Constitutional Constitutional ED: Denies chills or fever(s) Eyes Eyes: Denies change in vision ENT ENT ED: Denies sore throat Cardiovascular Cardiovascular: Denies chest pain, palpitations or racing heartbeat Respiratory/Chest Respiratory/Chest: Denies cough or dyspnea Gastrointestinal Gastrointestinal: Reports nausea; Denies abdominal pain, diarrhea or vomiting Genitourinary Genitourinary ED: Denies dysuria Musculoskeletal Musculoskeletal: Denies myalgias Integumentary Denies rash Neurologic Neurologic: Reports weakness; Denies headache(s) Hematologic/Lymphatic Hematologic/Lymphatic: Reports easy bleeding and easy bruising EXAM Physical Exam Const Vital Signs: 03/31/23 00:17 03/31/23 00:26 03/31/23 04:25 Temperature 97.8 F Temperature Source Oral Pulse Rate 67 71 Respiratory Rate 18 18 Respiratory Effort Normal Respiratory Pattern Normal Blood Pressure 121/57 H 133/63 H Blood Pressure Mean 78 86 Pulse Ox 94 96 Oxygen Delivery Method Room Air Room Air Positive well nourished, well developed and obese General Appearance ED: well developed Nutritional Appearance: obese HEENT Reports dry mucous membranes HEENT Narrative: Mucous membranes are dry and tacky. No tongue or lip swelling no oral lesions no airway edema or compromise. Mouth ED: Yes dry mucous membranes Mouth: dry mucous membranes Eyes PERRL and EOMs intact bilaterally General Eye ED: Negative for scleral icterus Neck supple and no JVD Resp normal respiratory effort and clear to auscultation bilaterally Resp Narrative: Breath sounds are diminished throughout but overall clear to auscultation without nasal flaring retractions tachypnea or accessory muscle use Cardio regular rate and regular rhythm Rate: other Other Details: Radial pulses are plus 2 out of 4 bilaterally are equal and symmetric GI non-distended GI Narrative: Abdomen is obese soft and nondistended with normal active bowel sounds. Patient has pain on palpation towards the left mid to lower portion of the abdomen. There is no voluntary guarding or rigidity. No pulsatile mass Auscultation: normoactive bowel sounds Palpation: soft Extremity normal to inspection Neuro oriented x3, CN's II-XII intact bilaterally and no sensory deficits noted Sensorium / Orientation: alert Motor Exam: strength 5/5 throughout Psych mental status grossly normal Skin no rashes or lesions noted Skin Narrative: Skin turgor is increased No jaundice noted No overlying soft tissue changes to suggest infection MDM MDM MDM Narrative Medical decision making narrative: Patient presented to the ER with spontaneous improvement of his blood pressure. He is a diabetic and blood sugar was checked and was normal as well. Daughter reported multiple readings of hypotension at home and as the patient also states he feels unwell and has pain towards the mid to left lower abdomen there is concern this could be an infectious process such as diverticulitis or atypical pancreatitis. Patient also could have inadvertently taken an extra blood pressure medication or developed acute kidney injury as his exam shows dehydration or potentially DKA as he is a diabetic. Blood work showed no elevation to his anion gap or decreased to his bicarb going against DKA. His lipase is elevated concerning for pancreatitis even though this is not clinically correlate with the location of his pain. However the CT report documents that the radiologist visualizes the pancreas and there is no signs of inflammation going against acute pancreatitis. The patient's physical exam showed dehydration and after he was given a liter of fluid had improvement of his blood pressure. He also reported feeling better. His neuro exam was normal and after IV hydration he was ambulated and did so without any difficulty. Therefore at this time as physical exam and work-up indicates this is most likely dehydration and has been improved with IV fluids and patient cannot ambulate without any difficulty or sensation of weakness he is otherwise safe for discharge History & Record Review Discussion w/independent historian: Patient and Family Lab Data Attestation: I reviewed the patient's lab results. Labs: Laboratory Results - last 24 hr 03/31/23 00:35 WBC 12.4 H RBC 4.74 Hgb 13.6 Hct 41.8 MCV 88.2 MCH 28.7 MCHC 32.5 RDW Std Deviation 42.4 RDW Coeff of Lucia 13.1 Plt Count 249 MPV 11.0 Immature Gran % (Auto) 0.400 Neut % (Auto) 68.4 Lymph % (Auto) 14.8 L Harris % (Auto) 12.5 H Eos % (Auto) 3.4 Baso % (Auto) 0.5 Absolute Neuts (auto) 8.5 H Absolute Lymphs (auto) 1.83 Nucleated RBC % 0 Differential Comment SCANNED Diff Path Review May foll Sodium 135 L Potassium 4.6 Chloride 103 Carbon Dioxide 25.0 Anion Gap 7 BUN 25 H Creatinine 1.69 H Est GFR (MDRD) Af Amer 51 L Est GFR (MDRD) Non-Af 42 L BUN/Creatinine Ratio 14.8 Glucose 81 Calcium 8.7 Total Bilirubin 0.30 Direct Bilirubin 0.07 AST 27 ALT 32 Alkaline Phosphatase 72 Total Protein 7.2 Albumin 3.4 Globulin 3.8 Lipase 433 H Radiography Diagnostic Testing: Clinical Impression(s) from Imaging Studies Abdomen/Pelvis CT 03/31/23 00:40 IMPRESSION: There is no acute abnormality in the abdomen or pelvis. Electronically Signed: Zahira Wilson MD at 2:59 EDT Reading Location ID and State: [facility] / [place] Tel , Service support , Discharge Plan Triage Chief Complaint: General Illness ED Provider: Mani Esquivel Dx/Rx/DC Orders Clinical Impression: Dehydration, Current use of senior care anticoagulation, Hyperlipidemia, History of atrial fibrillation Instructions: Dehydration Prescriptions: No Action Eliquis 5 mg tablet 5 mg PO BID Qty: 180 3RF Hold Instructions: Resume on 08/12/21. aspirin 81 mg tablet,delayed release (DR/EC) 81 mg PO DAILY Qty: 90 3RF Hold Instructions: Resume on 08/12/21. carvedilol 25 mg tablet 25 mg PO BID Qty: 180 3RF losartan-hydrochlorothiazide 100-12.5 mg tablet 1 tab PO DAILY metformin 500 mg tablet extended release 24 hr 1,000 mg PO BID spironolactone 25 mg tablet 25 mg PO DAILY Qty: 30 2RF albuterol sulfate 90 mcg/actuation HFA aerosol inhaler 1 inh INHALATION Q6H PRN (Reason: SOB) Qty: 8.5 6RF simvastatin 40 MG tablet 40 mg PO QHS insulin lispro [Humalog KwikPen Insulin] 100 unit/mL insulin pen 26 unit SUBCUT TID colestipol 1 gram tablet 1 g PO DAILY Lantus Solostar U-100 Insulin 100 unit/mL (3 mL) insulin pen 90 unit SUBCUT QPM ondansetron [ondansetron] 4 mg tablet,disintegrating 4 mg PO Q8H PRN PRN (Reason: Nausea) Qty: 10 0RF diltiazem HCl 120 mg capsule,extended release 24hr 120 mg PO DAILY Qty: 90 3RF finasteride 5 mg tablet 5 mg PO DAILY flecainide 150 mg tablet 150 mg PO Q12H Qty: 60 11RF Primary Care Provider: Jeff Subramanian Referrals: Jeff Subramanian MD [Primary Care Provider] - Activity Restrictions/Additional Instructions: Please continue all of your home medications as previously directed but keep yourself well-hydrated as your exam and laboratory studies showed elevation to your kidney function consistent with dehydration. If you have any further concerns please return the hospital for repeat evaluation Disposition Disposition: Home, Self Care Discharge Date/Time: 03/31/23 04:42
[2023-03-31 04:41] VITALS: BP 138/68; PULSE 65; RESP 16; O2SAT 98
[2023-04-03 12:19] LABS: Pathologist Review Reviewed
== END 2023-03-31 04:42 | disposition home or self-care (01) ==
PROVIDERS: Emergency Provider Emergency Medicine; PCP Family Medicine; Visit Provider Emergency Medicine
DX: E86.0 Dehydration (principal); I48.91 Unspecified atrial fibrillation; Z79.4 Long term (current) use of insulin; E11.9 Type 2 diabetes mellitus without complications; I10 Essential (primary) hypertension; Z79.01 Long term (current) use of anticoagulants; E78.00 Pure hypercholesterolemia, unspecified; Z87.891 Personal history of nicotine dependence; I25.10 Atherosclerotic heart disease of native coronary artery without angina pectoris; Z79.899 Other long term (current) drug therapy; Z79.82 Long term (current) use of aspirin; Z79.84 Long term (current) use of oral hypoglycemic drugs; N40.0 Benign prostatic hyperplasia without lower urinary tract symptoms; Z90.49 Acquired absence of other specified parts of digestive tract
CPT/HCPCS: 74177; 80048; 80076; 83690; 85025; 96360; 99284; J7030; Q9967; A4216

== ENCOUNTER 2023-06-26 10:33 | Outpatient (CLI) | payer MEDICARE, SELFPAY ==
--- NOTE | 2023-06-25 | LES_PTH ---
PATIENT: INGRIS BALBUENA LOC: [facility]#:[id number] AGE/SX: 78/M ROOM: RE06/26/[address]: Dr. Chris Faulkner MD : 1945 BED: DIS: 06/26/2023 SPEC #: [id number] RECD: 06/26/23 10:54 STATUS: GIORGIO REQ #: [id number] CHELSI: 06/25/23 00:[address]: Chris Faulkner DEPT: SURGICAL PATHOLOGY RECD BY: Triston Dubose ENTERED: 06/26/23 10:55 SP TYPE: Lesion OTHR DR: Dr. Jeff Subramanian MD Tissues: A - Skin of eyelid, NOS B - Skin of eyelid, NOS C - Skin of eyelid, NOS Procedures: Surgery Specimen Level III HEADER OPERATION: Right upper lid excisional biopsy PRE-OP DIAGNOSIS: Right upper lid lesions TISSUE SUBMITTED: A - Right lateral canthus, B - Right upper lid medial, C - Right upper lid lesion MICROSCOPIC DIAGNOSIS A. Right lateral canthus lesion, biopsy: Benign fibroepithelial polyp. B. Skin lesion of right upper medial eyelid, biopsy: Benign fibroepithelial polyp, mildly inflamed. C. Skin lesion of right upper eyelid, biopsy: Benign fibroepithelial polyp, mildly inflamed. AM:eugene 06/27/2023 MICROSCOPIC DESCRIPTION Slides are reviewed. GROSS DESCRIPTION A - Received in fixative is one container labeled with the patient's name and designated right lateral canthus. The specimen consists of an irregular fragment of light pratt soft tissue measuring 0.4 x 0.3 x 0.2 cm. The specimen is totally submitted in one cassette. B - Received in fixative is one container labeled with the patient's name and designated right upper lid medial. The specimen consists of an irregular fragment of light pratt soft tissue measuring 0.2 x 0.2 x 0.1 cm. The specimen is totally submitted in one cassette. C - Received in fixative is one container labeled with the patient's name and designated right upper lid lesion. The specimen consists of an irregular fragment of light pratt soft tissue measuring 0.7 x 0.5 x 0.3 cm. The specimen is totally submitted in one cassette. / AM:eugene 06/26/2023 TC:5 CPT: 38615 x3
== END 2023-06-26 23:59 | disposition home or self-care (01) ==
LOC: LABSPEC 10:38
PROVIDERS: PCP Family Medicine; Referring Provider Ophthalmology; Visit Provider Ophthalmology
DX: L91.8 Other hypertrophic disorders of the skin (principal)
CPT/HCPCS: 88304; 88305

== ENCOUNTER → 2023-07-11 | Outpatient (CLI) | payer MEDICARE, SELFPAY ==
--- NOTE | 2023-07-11 11:38 | LES_PTH ---
PATIENT: INGRIS BALBUENA [facility][id number] AGE/SX: 78/M ROOM: RE07/11/[address]: Dr. Chris Faulkner MD : 1945 BED: DIS: 07/11/2023 SPEC #: [id number] RECD: 07/11/23 15:27 STATUS: GIORGIO WILDER #: [id number] CHELSI: 07/11/23 11:[address]: Chris Faulkner DEPT: SURGICAL PATHOLOGY RECD BY: Lelia Bai ENTERED: 07/12/23 08:20 SP TYPE: Lesion OTHR DR: Dr. Jeff Subramanian MD Tissues: A - Skin of eyelid, NOS B - Skin of eyelid, NOS C - Skin of eyelid, NOS Procedures: Surgery Specimen Level IV HEADER OPERATION: Lesion removal PRE-OP DIAGNOSIS: Neoplasm TISSUE SUBMITTED: A - Left lower lid lesion, B - Left upper lid lesion, C - Left upper lid lesion MICROSCOPIC DIAGNOSIS A. Left lower lid lesion, biopsy: Squamous papilloma. B. Left upper lid lesion, biopsy: Squamous papilloma. C. Left upper lid lesion, biopsy: Fragments of squamous papilloma. KAIN:eugene 07/13/2023 MICROSCOPIC DESCRIPTION Slides are reviewed. GROSS DESCRIPTION A - Received in fixative is one container labeled with the patient's name and designated left lower lid. The specimen consists of two pieces of pratt-white skin measuring 0.4 x 0.4 x 0.3 cm and 0.2 x 0.2 x 0.1 cm. The specimen is totally submitted in one cassette. B - Received in fixative is one container labeled with the patient's name and designated left upper lid lesion. The specimen consists of a piece of pratt-white skin measuring 0.5 x 0.5 x 0.3 cm. The specimen is totally submitted in one cassette. C - Received in fixative is one container labeled with the patient's name and designated left upper lid lesion. The specimen consists of four variable sized pieces of pratt-white skin measuring in aggregate 1.0 x 1.0 x 0.4 cm and 0.2 to 0.6 cm in greatest dimension. The specimen is totally submitted in one cassette. / KAIN:eugene 07/12/2023 TC:1 CPT: 91577 x3
== END | disposition home or self-care (01) ==
LOC: LABSPEC 16:19
PROVIDERS: PCP Family Medicine; Visit Provider Ophthalmology
DX: D23.121 Other benign neoplasm of skin of left upper eyelid, including canthus (principal); D23.122 Other benign neoplasm of skin of left lower eyelid, including canthus
CPT/HCPCS: 88305

== ENCOUNTER 2023-09-22 10:12 | Emergency (ER) | payer MEDICARE, SELFPAY ==
[2023-09-22 10:13] VITALS: BP 157/67; PULSE 88; RESP 24; TEMP 36.1; O2SAT 94; BMI 38.2
--- NOTE | 2023-09-22 10:22 | EKG12_ITS ---
Test Reason : CP Blood Pressure : / mmHG Vent. Rate : 086 BPM Atrial Rate : 086 BPM P-R Int : 240 ms QRS Dur : 156 ms QT Int : 422 ms P-R-T Axes : 028 -76 046 degrees QTc Int : 504 ms Sinus rhythm with 1st degree A-V block with occasional Premature ventricular complexes Right bundle branch block Left anterior fascicular block Bifascicular block Abnormal ECG Confirmed by ROLAND SAMUEL, MIGUEL ANGEL ([id number]), development editor CARLOTA SUTTON ([id number]) on 09/24/2023 8:41:55 AM Referred By: BIANCA/SONI Confirmed By:MIGUEL ANGEL WATKINS MD
[2023-09-22] MEDS: Aspirin 81 MG TAB.CHEW 324 MG PO (10:41)
--- NOTE | 2023-09-22 10:56 | ED.VIS.CHEST ---
HPI History of Present Illness Chief Complaint: Chest Pain Narrative Narrative: 78-year-old male presenting with chest pain. Patient states chest pain started about 9. He believes his chest pain lasted about 10 minutes. He denies radiation of pain but points to his sternum where the pain is. He cannot describe the pain with anything other than it hurt. Patient denied feeling lightheaded, nauseous, dizziness. He denies that his heart was racing. He denies feeling short of breath. He states that EMS came and evaluated him and his symptoms were gone upon their arrival. He received no medication via EMS. Patient states he has a history of A-fib and is on Eliquis and available/diltiazem. Patient has not missed any medication. Patient denies fever, chills, cough. States he felt otherwise well up until this morning. Last meal was 6 PM yesterday and he states he ate a big Mac and fries. [facility] Medical History Acute respiratory failure with hypoxia Atrial fibrillation with RVR (02/05/21) Back pain BPH (benign prostatic hyperplasia) Dietary restriction Enlarged prostate Essential (primary) hypertension Former smoker High cholesterol Hyperlipidemia Hypertension Injury of back Insulin dependent diabetes mellitus Left lower lobe pneumonia Morbid obesity Nonobstructive atherosclerosis of coronary artery Obesity Pneumonia due to COVID-19 virus Psoriasis Restless legs Restrictive airway disease Right bundle branch 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 Shortness of breath on exertion Type 2 diabetes mellitus Wears glasses Wears hearing aid Home Medications simvastatin 40 mg tablet 40 mg PO QHS cholesterol 04/21/15 [History Last Taken Unknown] apixaban 5 mg tablet (Eliquis) 5 mg PO BID #180 tabs 02/22/21 [Rx Last Taken Unknown] aspirin 81 mg tablet,delayed release 81 mg PO DAILY #90 tabs 02/22/21 [Rx Last Taken 07/22/21] carvedilol 25 mg tablet 25 mg PO BID #180 tabs 02/22/21 [Rx Last Taken Unknown] losartan 100 mg-hydrochlorothiazide 12.5 mg tablet 1 tab PO DAILY 06/23/21 [History Last Taken Unknown] diltiazem HCl 120 mg capsule,extended release 24 hr 120 mg PO DAILY #90 caps 07/18/21 [Rx Last Taken Unknown] insulin lispro 100 unit/mL subcutaneous pen (Humalog KwikPen (U-100) Insulin) 26 unit subcut TID diabetes 10/24/21 [History Last Taken Unknown] metformin 500 mg tablet,extended release 24 hr 1,000 mg PO BID 10/24/21 [History Last Taken Unknown] albuterol sulfate 90 mcg/actuation aerosol inhaler 1 inh inhalation Q6H PRN SOB #8.5 grams 11/30/21 [Rx Last Taken Unknown] colestipol 1 gram tablet 1 g PO DAILY 01/30/22 [History Last Taken Unknown] insulin glargine 100 unit/mL (3 mL) subcutaneous pen (Lantus Solostar U-100 Insulin) 90 unit subcut QPM diabetes 01/30/22 [History Last Taken Unknown] spironolactone 25 mg tablet 25 mg PO DAILY #30 tabs 01/30/22 [Rx Last Taken Unknown] finasteride 5 mg tablet 5 mg PO DAILY 10/27/22 [History Last Taken Unknown] NUVOFLEX 2 cap PO DAILY 09/22/23 [History Last Taken Unknown] TUMERIC 1,000 mg PO DAILY 09/22/23 [History Last Taken Unknown] famotidine 20 mg tablet 20 mg PO BID 09/22/23 [History Last Taken Unknown] insulin glargine 100 unit/mL (3 mL) subcutaneous pen (Basaglar KwikPen U-100 Insulin) 90 unit subcut QHS 09/22/23 [History Last Taken Unknown] Allergy/AdvReac Type Severity Reaction Status Date / Time amoxicillin Allergy Rash Verified 03/01/23 20:35 Family History Sister Colon cancer Brother Diabetes Mother Diabetes Heart disease Cancer Father Heart disease Cancer Diabetes Surgical History H/O hemorrhoidectomy H/O wrist surgery History of left heart catheterization (02/07/21) Hx of cholecystectomy Hx of umbilical hernia repair Status post surgical manipulation of ankle joint Social History household members: spouse Smoking Status: Former smoker how long ago did patient quit smokin years ago alcohol intake: never substance use type: does not use caffeine: Yes Type: coffee Number of servings: 1 ROS ROS ED Constitutional Constitutional ED: Denies chills, fever(s) or sweats Eyes Eyes: Denies blurry vision or change in vision ENT ENT ED: Denies ear pain or sore throat Cardiovascular Cardiovascular: Reports chest pain; Denies palpitations or racing heartbeat Respiratory/Chest Respiratory/Chest: Denies cough, dyspnea or sputum Gastrointestinal Gastrointestinal: Denies abdominal pain, constipation, diarrhea, nausea or vomiting Genitourinary Genitourinary ED: Denies dysuria, hematuria or urinary frequency Musculoskeletal Musculoskeletal: Denies arthralgias, myalgias or neck pain Integumentary Denies abscess, Abrasions or rash Neurologic Neurologic: Denies headache(s), paresthesias or weakness Psychiatric Psychiatric: Denies anxiety, depression, suicidal ideation or suicidal thoughts Endocrine Endocrinology: Denies polydipsia or polyuria EXAM Physical Exam Const Vital Signs: 09/22/23 10:13 09/22/23 10:17 09/22/23 10:43 Temperature 96.9 F L Temperature Source Temporal Pulse Rate 88 Respiratory Rate 24 H Respiratory Effort Normal Non-Labored Blood Pressure 157/67 H Blood Pressure Mean 97 Pulse Ox 94 Oxygen Delivery Method Room Air Room Air 09/22/23 12:00 09/22/23 13:00 09/22/23 14:00 Temperature Temperature Source Pulse Rate 78 78 74 Respiratory Rate 12 16 16 Respiratory Effort Blood Pressure 154/91 H 163/87 H 117/57 L Blood Pressure Mean 112 112 77 Pulse Ox 95 93 97 Oxygen Delivery Method Room Air Room Air Room Air Positive well nourished General Appearance ED: NAD; Negative for pallor HEENT Reports moist mucous membranes normocephalic Eyes PERRL and EOMs intact bilaterally Resp normal respiratory effort and clear to auscultation bilaterally Auscultation: Negative for rales, rhonchi or wheezes Cardio regular rate and regular rhythm GI normal to inspection, nondistended, normoactive bowel sounds Neuro oriented x3 and CN's II-XII intact bilaterally Sensorium / Orientation: awake and alert Psych mental status grossly normal Skin no rashes or lesions noted General Skin Exam: Negative for jaundice or pallor Heart Score History: Slightly/Non-Suspicious ECG: Normal Age: >/= 65 years Risk Factors: >/= 3 Risk Factors or History of CAD Score: 4 MDM MDM MDM Narrative Medical decision making narrative: Patient presenting with resolved chest pain. Differential includes A-fib, a flutter, ACS, CHF, pneumonia, costochondritis, dehydration, anemia, or light abnormalities. Patient on Eliquis so low suspicion for PE. Patient's pain is resolved. Vital signs are stable he is afebrile. Patient declines any analgesia. CBC was obtained to assess white blood cell count, hemoglobin, platelets. BMP to assess renal function, electrolytes. High-sensitivity troponin EKG to assess for ischemia/dysrhythmia. Chest x-ray to rule out pneumonia. HEART score 4. Patient had normal stress test in November of last year. CBC shows mild leukocytosis 12.0. Hemoglobin stable 14.1. Platelets are normal at 210. Renal function electrolytes within normal limits. High-sensitivity troponin is 10. Delta troponin 9. There is no significant interval difference. EKG on my interpretation shows a normal sinus rhythm at a ventricular of 86 bpm with first-degree AV block. Chest x-ray my interpretation is no acute process. Given patient's workup is ultimately negative I feel he safe for discharge home. Return precautions were discussed. Impression: 1. Chest pain Lab Data Attestation: I reviewed the patient's lab results. Labs: Laboratory Results - last 24 hr 09/22/23 09/22/23 10:35 12:43 WBC 12.0 H RBC 5.22 Hgb 14.1 Hct 43.6 MCV 83.5 MCH 27.0 MCHC 32.3 RDW Std Deviation 43.0 RDW Coeff of Lucia 14.2 Plt Count 210 MPV 10.9 Immature Gran % (Auto) 0.400 Neut % (Auto) 71.2 H Lymph % (Auto) 14.7 L [place] % (Auto) 9.9 Eos % (Auto) 3.4 Baso % (Auto) 0.4 Absolute Neuts (auto) 8.5 H Absolute Lymphs (auto) 1.76 Nucleated RBC % 0 Sodium 137 Potassium 4.0 Chloride 106 Carbon Dioxide 25.0 Anion Gap 6 BUN 18 Creatinine 1.07 Estim Creat Clear Calc 63.26 Est GFR (MDRD) Af Amer 86 Est GFR (MDRD) Non-Af 71 BUN/Creatinine Ratio 16.8 Glucose 168 H Calcium 9.4 Troponin I High Sens 10 9 Radiography Diagnostic Testing: Clinical Impression(s) from Imaging Studies Chest X-Ray 09/22/23 11:11 IMPRESSION: No acute cardiopulmonary process identified. Electronically Signed: Amira Brewster MD at 11:54 EST , Discharge Plan Triage Chief Complaint: Chest Pain ED Provider: Tre Johnson Dx/Rx/DC Orders Instructions: ED Chest Pain, Uncertain Cause Prescriptions: No Action Eliquis 5 mg tablet 5 mg PO BID Qty: 180 3RF Hold Instructions: Resume on 08/12/21. aspirin 81 mg tablet,delayed release (DR/EC) 81 mg PO DAILY Qty: 90 3RF Hold Instructions: Resume on 08/12/21. carvedilol 25 mg tablet 25 mg PO BID Qty: 180 3RF losartan-hydrochlorothiazide 100-12.5 mg tablet 1 tab PO DAILY metformin 500 mg tablet extended release 24 hr 1,000 mg PO BID spironolactone 25 mg tablet 25 mg PO DAILY Qty: 30 2RF albuterol sulfate 90 mcg/actuation HFA aerosol inhaler 1 inh INHALATION Q6H PRN (Reason: SOB) Qty: 8.5 6RF simvastatin 40 MG tablet 40 mg PO QHS insulin lispro [Humalog KwikPen Insulin] 100 unit/mL insulin pen 26 unit SUBCUT TID colestipol 1 gram tablet 1 g PO DAILY Lantus Solostar U-100 Insulin 100 unit/mL (3 mL) insulin pen 90 unit SUBCUT QPM famotidine 20 mg tablet 20 mg PO BID Patient Comments: take 1 tablet by mouth twice a day TUMERIC 1,000 mg capsule 1,000 mg PO DAILY insulin glargine [Basaglar KwikPen U-100 Insulin] 100 unit/mL (3 mL) insulin pen 90 unit subcut QHS NUVOFLEX 2 cap PO DAILY diltiazem HCl 120 mg capsule,extended release 24hr 120 mg PO DAILY Qty: 90 3RF finasteride 5 mg tablet 5 mg PO DAILY Primary Care Provider: Jeff Subramanian Referrals: Jeff Subramanian MD [Primary Care Provider] - Disposition Disposition: Home, Self Care
[2023-09-22 10:59] LABS: Anion Gap 6 (5-15); BUN 18 mg/dL (7-18); BUN/Creat Ratio 16.8 RATIO (10-20); Calcium,Total 9.4 mg/dL (8.5-10.1); Chloride 106 mmol/L (98-107); Creatinine, Serum 1.07 mg/dL (0.70-1.30); EST Glomerular Filtration Rate 71 mL/min (>60); Est Glom Filt Rate - Afr Amer 86 mL/min (>60); Estimated Creatinine Clearance 63.26 ml/min; Glucose 168 mg/dL (74-106); Sodium Level 137 mmol/L (136-145); Troponin-I HS (w/2H Reflex) 10 pg/mL (3.0-78.0)
[2023-09-22 11:00] LABS: Absolute Lymphocyte Count 1.76 X10^3/uL (0.83-4.51); Absolute Neutrophil Count 8.5 X10^3/uL (2.0-7.7); Basophil# 0.05 X10^3/uL; Basophil% 0.4 % (0-1); Eosinophil# 0.41 X10^3/uL; Eosinophils% 3.4 % (0-5); Hematocrit 43.6 % (40-54); Hemoglobin 14.1 g/dL (13.0-16.5); Lymphocyte # 1.76 X10^3/ul (0.83-4.51); Lymphocyte % 14.7 % (19-41); Mean Corp Hgb Conc 32.3 g/dL (32-36); Mean Corpuscular Volume 83.5 fL (80-94); Mean Platelet Vol. 10.9 fl (6.2-12.0); Monocyte# 1.18 X10^3/uL; Monocyte% 9.9 % (0-10); NRBC Flagged by Analyzer 0 % (0-5); Neutrophil % 71.2 % (47-70); POSITIVE COUNT YES; RBC Distribution Width CV 14.2 % (11.6-14.6); Red Blood Count 5.22 M/mm3 (4.6-6.2)
--- OUTSIDE RECORDS SUMMARY | 2023-09-22 11:00 | XMS RPT_ITS | CCD ---
Author Name Unknown Address [address] [place] [address] Organization [facility] Care Team Providers Care Inspectors And Regulatory Officers Name Role Phone Jeff Virgen MD Primary Care Provider [phone] [facility], Keti Unavailable [facility], Kaitlyn Unavailable Jeff Virgen MD Primary Care Provider [facility], Kaitlyn Unavailable JEFF VIRGEN Primary Care Unavailable ANUM CHEUNG Attending Unavailable JEFF VIRGEN Primary Care Unavailable JARVIS NICOLE Referring Unavailab JEFF Kwong Primary Care Unavailable JEFF VIRGEN Referring Unavailable FITO RIVERA Attending Unavailable JEFF VIRGEN Primary Care Unavailable FITO RIVERA Attending Unavailable JEFF VIRGEN Primary Care Unavailable JEFF VIRGEN Attending Unavailable JEFF VIRGEN Primary Care Unavailable JARVIS NICOLE Attending Unavailab JEFF Kwong Referring Unavailable JEFF VIRGEN Primary Care Unavailable JEFF VIRGEN Primary Care Unavailable JEFF VIRGEN Primary Care Unavailable Osvaldo TRAVIS Attending Unavailable JEFF VIRGEN Primary Care Unavailable JEFF VIRGEN Primary Care Unavailable ANUM CHEUNG Referring Unavailable DENISHA SHEPARD Referring Unavailable JEFF VIRGEN Primary Care Unavailable JEFF VIRGEN Primary Care Unavailable JEFF VIRGEN Attending Unavailable DENISHA SHEPARD Attending Unavailable JEFF VIRGEN Primary Care Unavailable Osvaldo TRAVIS Attending Unavailable JEFF VIRGEN Primary Care Unavailable JEFF VIRGEN Primary Care Unavailable JEFF VIRGEN Referring Unavailable JEFF VIRGEN Referring Unavailable JEFF VIRGEN Primary Care Unavailable JEFF VIRGEN Attending Unavailable JEFF VIRGEN Primary Care Unavailable JEFF VIRGEN Primary Care Unavailable JARVIS NICOLE Attending UnavailOsvaldo Judd Attending Unavailable JEFF VIRGEN Primary Care Unavailable JEFF VIRGEN Primary Care Unavailable JEFF VIRGEN Attending Unavailable JEFF VIRGEN Primary Care Unavailable JEFF VIRGEN Referring Unavailable JEFF VIRGEN Primary Care Unavailable JARVIS NICOLE Referring Unavailab morris Allergies Allergy Classification Reported Allergen(s) Allergy Type Date of Onset Reaction(s) Facility (20 sources) Amoxicillin; Translations: [AMOXICILLIN] Drug Allergy 05-11-2005 [facility] Medications Current Medications Medication Drug Class(es) Dates Sig (Normalized) Sig (Original) colestipol hydrochloride 1000 mg oral tablet (20 sources) Bile Acid Sequestrant Start: 03-06-2022 End: 06-06-2024 take 1 tablet by mouth once daily colestipol (COLESTID) 1 gram tablet Indications: Diarrhea, unspecified type Take 1 tablet by mouth once daily. 90 tablet 3 06/07/2023 06/06/2024 Active Completed/Discontinued Medications Medication Drug Class(es) Dates Sig (Normalized) Sig (Original) [id number] 200 actuat albuterol 0.09 mg/actuat metered dose inhaler (7 sources) beta2-Adrenergic Agonist Start: 06-09-2023 take 2 puff(s) by inhalation every four hours as needed albuterol HFA (VENTOLIN HFA) 90 mcg/actuation inhaler Indications: Viral URI with cough , Bronchitis Inhale 2 Puffs as instructed every 4 hours as needed. 1 Each 1 06/09/2023 Active Problems Active Problems Problem Classification Problem Date Documented Da te Episodic/Chronic Blindness and vision defects (20 sources) Blindness AND/OR vision impairment level; Translations: [Blindness, one eye, unspecified eye] Onset: 11-24-2009 11-24-2009 Chronic Cardiac dysrhythmias (20 sources) Paroxysmal atrial fibrillation; Translations: [Paroxysmal atrial fibrillation] Onset: 02-15-2021 05-06-2021 Chronic Chronic obstructive pulmonary disease and bronchiectasis (2 sources) Bronchitis; Translations: [Bronchitis, not specified as acute or chronic] Onset: 09-06-2023 06-09-2023 Episodic Conduction disorders (10 sources) 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 fascicular block; Translations: [Bifascicular block] Onset: 06-06-2023 06-06-2023 Chronic Coronary atherosclerosis and other heart disease (10 sources) Non-obstructive atherosclerosis of coronary artery; Translations: [Atherosclerotic heart disease of [place] coronary artery without angina pectoris] Onset: 06-06-2023 06-06-2023 Chronic Diabetes mellitus with complications (20 sources) Type 2 diabetes mellitus; Translations: [Type 2 diabetes mellitus with other diabetic kidney complication] Onset: 05-11-2005 08-18-2021 Chronic Diabetes mellitus without complication (11 sources) Type 2 diabetes mellitus without complication; Translations: [Type 2 diabetes mellitus without complications] Chronic Diseases of white blood cells (4 sources) Monocytosis; 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)] Onset: 03-02-2023 Chronic Disorders of lipid metabolism (20 sources) Pure hypercholesterolemia; Translations: [Pure hypercholesterolemia, unspecified] Onset: 06-13-2005 06-09-2009 Chronic Essential hypertension (20 sources) Essential hypertension; Translations: [Essential (primary) hypertension] Onset: 05-11-2005 09-29-2015 Chronic Hyperplasia of prostate (1 source) Benign prostatic hyperplasia; Translations: [Benign prostatic hyperplasia with lower urinary tract symptoms] Chronic Immunizations and screening for infectious disease (4 sources) Viral screening status; Translations: [Encounter for screening for other viral diseases] Episodic Nonspecific chest pain (2 sources) Chest pain; Translations: [Chest pain, unspecified] Episodic Other aftercare (1 source) Wound ; Translations: [Encounter for other specified surgical aftercare] 05-01-2023 Episodic Other endocrine disorders (1 source) Hypoglycemia; Translations: [Hypoglycemia, unspecified] Chronic Other gastrointestinal disorders (3 sources) Diarrhea; Translations: [Diarrhea, unspecified] Episodic Other gastrointestinal disorders (1 source) Acute constipation; Translations: [Constipation, unspecified] Episodic Other inflammatory condition of skin (20 sources) Psoriasis; Translations: [Other psoriasis] Onset: 05-11-2005 05-11-2005 Chronic Other non-traumatic joint disorders (1 source) Acute ankle pain; Translations: [Pain in left ankle and joints of left foot] Episodic Other non-traumatic joint disorders (1 source) Hip pain; Translations: [Pain in right hip] 07-23-2023 Episodic Other non-traumatic joint disorders (1 source) Pain in right hip; Translations: [Acute hip pain, right] Onset: 07-23-2023 Episodic Other nutritional; endocrine; and metabolic disorders (20 sources) Obesity; Translations: [Obesity, unspecified] Onset: 05-11-2005 05-11-2005 Chronic Other nutritional; endocrine; and metabolic disorders (20 sources) Cholesterol level - finding; Translations: [Lipoprotein deficiency] Onset: 06-09-2011 06-09-2011 Chronic Other nutritional; endocrine; and metabolic disorders (20 sources) Obese class II; Translations: [Obesity, unspecified] Onset: 01-31-2021 01-31-2021 Chronic Other nutritional; endocrine; and metabolic disorders (3 sources) Morbid obesity; Translations: [Morbid (severe) obesity due to excess calories] Onset: 05-11-2005 05-18-2023 Chronic Other nutritional; endocrine; and metabolic disorders (1 source) Morbid (severe) obesity due to excess calories; Translations: [Morbid obesity (HCC)] Onset: 05-18-2023 Chronic Other skin disorders (1 source) Mass of skin; Translations: [Localized swelling, mass and lump, unspecified] Episodic Other skin disorders (1 source) Disorder of subcutaneous tissue; Translations: [Disorder of the skin and subcutaneous tissue, unspecified] Episodic Other skin disorders (1 source) Skin tag; Translations: [Other hypertrophic disorders of the skin] 04-30-2023 Episodic Other skin disorders (1 source) Inflamed seborrheic keratosis; Translations: [Inflamed seborrheic keratosis] 04-30-2023 Episodic Other upper respiratory infections (1 source) Chronic sinusitis, unspecified; Translations: [Sinobronchitis] Onset: 09-06-2023 Chronic Poisoning by other medications and drugs (1 source) Poisoning by unspecified drugs, medicaments and biological substances, accidental (unintentional), initial encounter; Translations: [Poisoning by unspecified drug or medicinal substance] Episodic Residual codes; unclassified (20 sources) Sleep apnea; Translations: [Sleep apnea, unspecified] Onset: 03-31-2009 01-10-2018 Chronic Schizophrenia and other psychotic disorders (20 sources) Chronic schizophrenia; Translations: [Schizophrenia, unspecified] Onset: 04-23-2017 04-23-2017 Chronic Spondylosis; intervertebral disc disorders; other back problems (20 sources) Intervertebral disc disorder of lumbar region with myelopathy; Translations: [Intervertebral disc disorders with myelopathy, lumbar region] Onset: 09-22-2005 09-22-2005 Chronic Sprains and strains (2 sources) Strain of calf muscle; Translations: [Strain of other muscle(s) and tendon(s) at lower leg level, right leg, initial encounter] Episodic Unclassified (1 source) OPENED IN ERROR Past or Other Problems Problem Classification Problem Date Documented Da te Episodic/Chronic E Codes: Fall (2 sources) Fall; Translations: [Unspecified fall, initial encounter] Onset: 05-18-2023 05-18-2023 Episodic Genitourinary symptoms and ill-defined conditions (2 sources) Retention of urine; Translations: [Retention of urine, unspecified] Onset: 08-18-2021 Episodic Nausea and vomiting (3 sources) Nausea; Translations: [Nausea] Onset: 03-02-2023 Episodic Other aftercare (20 sources) Long-term current use of anticoagulant; Translations: [shelter (current) use of anticoagulants] Onset: 02-15-2021 02-15-2021 Episodic Other aftercare (1 source) Encounter for other specified surgical aftercare; Translations: [Encounter for post surgical wound check] Onset: 05-01-2023 Episodic Other aftercare (1 source) roasterman (current) use of insulin; Translations: [Type 2 diabetes mellitus with microalbuminuria, with long-term current use of insulin (HCC)] Onset: 08-18-2021 Episodic Other and unspecified benign neoplasm (20 sources) Tubular adenoma of colon; Translations: [Benign neoplasm of colon, unspecified] Onset: 06-02-2015 06-02-2015 Episodic Other and unspecified benign neoplasm (10 sources) History of polyp of colon; Translations: [Personal history of colonic polyps] Onset: 06-06-2023 06-06-2023 Episodic Other liver diseases (1 source) Abnormal levels of other serum enzymes; Translations: [Abnormal serum level of lipase] Onset: 03-02-2023 Episodic Other lower respiratory disease (11 sources) Restrictive lung disease; Translations: [Other disorders of lung] Onset: 06-06-2023 06-06-2023 Episodic Other non-traumatic joint disorders (1 source) Pain in left ankle and joints of left foot; Translations: [Acute left ankle pain] Onset: 02-16-2023 Episodic Other screening for suspected conditions (not mental disorders or infectious disease) (14 sources) Liver function tests abnormal; Translations: [Abnormal results of liver function studies] Onset: 03-31-2009 04-02-2009 Episodic Other skin disorders (1 source) Other hypertrophic disorders of the skin; Translations: [Inflamed acrochordon] Onset: 04-30-2023 Episodic Other skin disorders (1 source) Inflamed seborrheic keratosis; Translations: [Seborrheic keratoses, inflamed] Onset: 04-30-2023 Episodic Other skin disorders (1 source) Disorder of the skin and subcutaneous tissue, unspecified; Translations: [Lesion of subcutaneous tissue] Onset: 02-06-2023 Episodic Other skin disorders (1 source) Localized swelling, mass and lump, unspecified; Translations: [Skin mass] Onset: 01-23-2023 Episodic Other upper respiratory infections (3 sources) Acute upper respiratory infection; Translations: [Acute upper respiratory infection, unspecified] Onset: 05-18-2023 05-18-2023 Episodic Syncope (2 sources) Near syncope; Translations: [Syncope and collapse] Onset: 05-18-2023 05-18-2023 Episodic Results Test Name Value Interpretation Reference Range Facil ity Vital Signs Date Time Vital Sign Value Performing Clinician Faci piper 07-23-2023 14:18-0500 Diastolic blood pressure 70 mm[Hg] Jarvis Nicole MD Work Phone: [facility] 07-23-2023 14:18-0500 Heart rate 64 /min Jarvis Nicole MD Work Phone: [facility] 07-23-2023 14:18-0500 Respiratory rate 20 /min Jarvis Nicole MD Work Phone: [facility] 07-23-2023 14:18-0500 SaO2% (BldA) [Mass fraction] 96 % Jarvis Nicole MD Work Phone: [facility] 07-23-2023 14:18-0500 Systolic blood pressure 128 mm[Hg] Jarvis Nicole MD Work Phone: [facility] 06-09-2023 10:41-0400 Body temperature 98.6 [degF] Jarvis Nicole MD Work Phone: [facility] 06-09-2023 10:41-0400 Body weight 132.45 kg Jarvis Nicole MD Work Phone: [facility] 06-09-2023 10:41-0400 Diastolic blood pressure 68 mm[Hg] Jarvis Nicole MD Work Phone: [facility] 06-09-2023 10:41-0400 Heart rate 79 /min Jarvis Nicole MD Work Phone: [facility] 06-09-2023 10:41-0400 Respiratory rate 30 /min Jarvis Nicole MD Work Phone: [facility] 06-09-2023 10:41-0400 SaO2% (BldA) [Mass fraction] 93 % Jarvis Nicole MD Work Phone: [facility] 06-09-2023 10:41-0400 Systolic blood pressure 124 mm[Hg] Jarvis Nicole MD Work Phone: [facility] 06-06-2023 10:25-0400 Body height 185.4 cm Jeff Virgen MD Work Phone: [facility] 06-06-2023 10:25-0400 Body weight 134.17 kg Jeff Virgen MD Work Phone: [facility] 06-06-2023 10:25-0400 Diastolic blood pressure 64 mm[Hg] Jeff Virgen MD Work Phone: [facility] 06-06-2023 10:25-0400 Heart rate 77 /min Jeff Virgen MD Work Phone: [facility] 06-06-2023 10:25-0400 SaO2% (BldA) [Mass fraction] 97 % Jeff Virgen MD Work Phone: [facility] 06-06-2023 10:25-0400 Systolic blood pressure 130 mm[Hg] Jeff Virgen MD Work Phone: [facility] 05-18-2023 15:03-0400 Body height 185.4 cm NA Travis PA-C Work Phone: [facility] 05-18-2023 15:03-0400 Body temperature 97.11 [degF] NA Travis PA-C Work Phone: [facility] 05-18-2023 15:03-0400 Body weight 131 kg NA Travis PA-C Work Phone: [facility] 05-18-2023 15:03-0400 Diastolic blood pressure 64 mm[Hg] NA Travis PA-C Work Phone: [facility] 05-18-2023 15:03-0400 Heart rate 72 /min NA Travis PA-C Work Phone: [facility] 05-18-2023 15:03-0400 SaO2% (BldA) [Mass fraction] 96 % NA Travis PA-C Work Phone: [facility] 05-18-2023 15:03-0400 Systolic blood pressure 104 mm[Hg] NA Travis PA-C Work Phone: [facility] 05-01-2023 14:23-0400 Body temperature 97.9 [degF] NA Travis PA-C Work Phone: [facility] 05-01-2023 14:23-0400 Diastolic blood pressure 70 mm[Hg] NA Travis PA-C Work Phone: [facility] 05-01-2023 14:23-0400 Heart rate 80 /min NA Travis PA-C Work Phone: [facility] 05-01-2023 14:23-0400 Respiratory rate 20 /min NA Travis PA-C Work Phone: [facility] 05-01-2023 14:23-0400 SaO2% (BldA) [Mass fraction] 96 % NA Travis PA-C Work Phone: [facility] 05-01-2023 14:23-0400 Systolic blood pressure 118 mm[Hg] NA Travis PA-C Work Phone: [facility] 04-30-2023 14:11-0400 Body weight 132.9 kg NA Travis PA-C Work Phone: [facility] 04-30-2023 14:11-0400 Diastolic blood pressure 68 mm[Hg] NA Travis PA-C Work Phone: [facility] 04-30-2023 14:11-0400 Heart rate 75 /min NA Travis PA-C Work Phone: [facility] 04-30-2023 14:11-0400 Respiratory rate 18 /min NA Travis PA-C Work Phone: [facility] 04-30-2023 14:11-0400 SaO2% (BldA) [Mass fraction] 95 % NA Travis PA-C Work Phone: [facility] 04-30-2023 14:11-0400 Systolic blood pressure 114 mm[Hg] NA Travis PA-C Work Phone: [facility] 03-05-2023 15:22-0400 Body temperature 97.3 [degF] Andrew Pendlebury [employer].MANAGER OF [employer]PLICATIONS DEVELOPMENT Work Phone: [facility] 03-05-2023 15:22-0400 Body weight 138.26 kg Andrew Pendlebury [employer] CEO.MANAGER OF [employer]PLICATIONS DEVELOPMENT Work Phone: [facility] 03-05-2023 15:22-0400 Diastolic blood pressure 62 mm[Hg] Andrew Pendlebury [employer]ER [employer] CEO.MANAGER OF [employer]PLICATIONS DEVELOPMENT Work Phone: [facility] 03-05-2023 15:22-0400 Heart rate 82 /min Andrew Pendlebury [employer]ER [employer] CEO.MANAGER OF [employer]PLICATIONS DEVELOPMENT Work Phone: [facility] 03-05-2023 15:22-0400 Respiratory rate 20 /min Andrew Pendlebury [employer]ER [employer] CEO.MANAGER OF [employer]PLICATIONS DEVELOPMENT Work Phone: [facility] 03-05-2023 15:22-0400 SaO2% (BldA) [Mass fraction] 94 % Andrew Pendlebury [employer] CEO.MANAGER OF [employer]PLICATIONS DEVELOPMENT Work Phone: [facility] 03-05-2023 15:22-0400 Systolic blood pressure 120 mm[Hg] Andrew Guallpa [employer]ER [employer] CEO.MANAGER OF [employer]PLICATIONS DEVELOPMENT Work Phone: [facility] 03-02-2023 16:23-0400 Body weight 137.44 kg Jeff Virgen MD Work Phone: [facility] 03-02-2023 16:23-0400 Diastolic blood pressure 60 mm[Hg] Jeff Virgen MD Work Phone: [facility] 03-02-2023 16:23-0400 Heart rate 76 /min Jeff Virgen MD Work Phone: [facility] 03-02-2023 16:23-0400 SaO2% (BldA) [Mass fraction] 93 % Jeff Virgen MD Work Phone: [facility] 03-02-2023 16:23-0400 Systolic blood pressure 112 mm[Hg] Jeff Virgen MD Work Phone: [facility] 02-16-2023 14:38-0400 Diastolic blood pressure 80 mm[Hg] Denisha Haagen [employer]ER [employer] CEO.MANAGER OF [employer]S DEVELOPMENT Work Phone: [facility] 02-16-2023 14:38-0400 Heart rate 82 /min Denisha Haagen [employer]ER [employer] CEO.MANAGER OF [employer]S DEVELOPMENT Work Phone: [facility] 02-16-2023 14:38-0400 Respiratory rate 16 /min Denisha Haagen [employer] F[employer]ER [employer] CEO.MANAGER OF [employer]PLICATIONS DEVELOPMENT Work Phone: [facility] 02-16-2023 14:38-0400 SaO2% (BldA) [Mass fraction] 94 % Denisha Haagen [employer] F[employer]ER [employer] CEO.MANAGER OF [employer]PLICATIONS DEVELOPMENT Work Phone: [facility] 02-16-2023 14:38-0400 Systolic blood pressure 142 mm[Hg] Denisha Haagen [employer] FOUNDER [employer] CEO.MANAGER OF [employer]PLICATIONS DEVELOPMENT Work Phone: [facility] 01-19-2023 14:18-0400 Body weight 137.44 kg Jeff Virgen MD Work Phone: [facility] 01-19-2023 14:18-0400 Diastolic blood pressure 72 mm[Hg] Jeff Virgen MD Work Phone: [facility] 01-19-2023 14:18-0400 Heart rate 86 /min Jeff Virgen MD Work Phone: [facility] 01-19-2023 14:18-0400 Respiratory rate 16 /min Jeff Virgen MD Work Phone: [facility] 01-19-2023 14:18-0400 Systolic blood pressure 134 mm[Hg] Jeff Virgen MD Work Phone: [facility] 11-29-2022 09:33-0400 Body height 185.4 cm Jeff Virgen MD Work Phone: [facility] 11-29-2022 09:33-0400 Body weight 137.89 kg Jeff Virgen MD Work Phone: [facility] 11-29-2022 09:33-0400 Diastolic blood pressure 68 mm[Hg] Jeff Virgen MD Work Phone: [facility] 11-29-2022 09:33-0400 Heart rate 85 /min Jeff Virgen MD Work Phone: [facility] 11-29-2022 09:33-0400 SaO2% (BldA) [Mass fraction] 96 % Jeff Virgen MD Work Phone: [facility] 11-29-2022 09:33-0400 Systolic blood pressure 136 mm[Hg] Jeff Virgen MD Work Phone: [facility] 05-31-2022 10:38-0400 Body height 185.4 cm Jeff Virgen MD Work Phone: [facility] 05-31-2022 10:38-0400 Body weight 136.08 kg Jeff Virgen MD Work Phone: [facility] 05-31-2022 10:38-0400 Diastolic blood pressure 68 mm[Hg] Jeff Virgen MD Work Phone: [facility] 05-31-2022 10:38-0400 Heart rate 87 /min Jeff Virgen MD Work Phone: [facility] 05-31-2022 10:38-0400 SaO2% (BldA) [Mass fraction] 94 % Jeff Virgen MD Work Phone: [facility] 05-31-2022 10:38-0400 Systolic blood pressure 136 mm[Hg] Jeff Virgen MD Work Phone: [facility] 04-08-2022 14:43-0400 Body temperature 97.5 [degF] Andrew Pendlebury [employer] CEO.MANAGER OF [employer] DEVELOPMENT Work Phone: [facility] 04-08-2022 14:43-0400 Body weight 137.26 kg Andrew Pendlebury [employer]ER [employer] CEO.MANAGER OF [employer]S DEVELOPMENT Work Phone: [facility] 04-08-2022 14:43-0400 Diastolic blood pressure 60 mm[Hg] Andrew Pendlebury [employer]ER [employer] CEO.MANAGER OF [employer]S DEVELOPMENT Work Phone: [facility] 04-08-2022 14:43-0400 Heart rate 80 /min Andrew Pendlebury [employer]ER [employer] CEO.MANAGER OF [employer]S DEVELOPMENT Work Phone: [facility] 04-08-2022 14:43-0400 Respiratory rate 21 /min Andrew Pendlebury [employer]ER [employer] CEO.MANAGER OF [employer] DEVELOPMENT Work Phone: [facility] 04-08-2022 14:43-0400 SaO2% (BldA) [Mass fraction] 97 % Andrew Pendlebury [employer]ER [employer] CEO.MANAGER OF [employer] DEVELOPMENT Work Phone: [facility] 04-08-2022 14:43-0400 Systolic blood pressure 136 mm[Hg] Andrew Pendlebury [employer]ER [employer] CEO.MANAGER OF [employer] DEVELOPMENT Work Phone: [facility] 03-03-2022 10:26-0400 Body weight 136.53 kg Jeff Virgen MD Work Phone: [facility] 03-03-2022 10:26-0400 Diastolic blood pressure 74 mm[Hg] Jeff Virgen MD Work Phone: [facility] 03-03-2022 10:26-0400 Heart rate 78 /min Jeff Virgen MD Work Phone: [facility] 03-03-2022 10:26-0400 SaO2% (BldA) [Mass fraction] 95 % Jeff Virgen MD Work Phone: [facility] 03-03-2022 10:26-0400 Systolic blood pressure 124 mm[Hg] Jeff Virgen MD Work Phone: [facility] 01-27-2022 14:46-0400 Body temperature 97.9 [degF] Saad Xavier [employer]ER [employer] CEO.MANAGER OF [employer]ELOPMENT Work Phone: [facility] 01-27-2022 14:46-0400 Body weight 136.62 kg Saad Xavier [employer] F[employer]ER [employer] CEO.MANAGER OF [employer] DEVELOPMENT Work Phone: [facility] 01-27-2022 14:46-0400 Diastolic blood pressure 74 mm[Hg] Saad Xavier [employer] F[employer]ER [employer] CEO.MANAGER OF [employer]S DEVELOPMENT Work Phone: [facility] 01-27-2022 14:46-0400 Heart rate 85 /min Saad Xavier [employer] FOUNDER [employer] CEO.MANAGER OF [employer] DEVELOPMENT Work Phone: [facility] 01-27-2022 14:46-0400 Respiratory rate 18 /min Saad Xavier [employer] FOUNDER [employer] CEO.MANAGER OF [employer]S DEVELOPMENT Work Phone: [facility] 01-27-2022 14:46-0400 SaO2% (BldA) [Mass fraction] 95 % Saad Xavier [employer] FOUNDER [employer] CEO.MANAGER OF [employer]S DEVELOPMENT Work Phone: [facility] 01-27-2022 14:46-0400 Systolic blood pressure 128 mm[Hg] Saad Xavier [employer] FOUNDER [employer] CEO.MANAGER OF [employer]S DEVELOPMENT Work Phone: [facility] 01-12-2022 14:41-0400 Diastolic blood pressure 75 mm[Hg] Kaitlyn Hernández [facility]ly [facility] Work Phone: [facility] 01-12-2022 14:41-0400 Heart rate 74 /min Kaitlyn Hernández [facility] Work Phone: [facility] 01-12-2022 14:41-0400 Systolic blood pressure 132 mm[Hg] Kaitlyn Hernández [facility] Work Phone: [facility] Encounters Encounter Date Encounter Type Care Provider Facility Start: 09-06-2023 End: 09-06-2023 ambulatory Jeff Virgen MD Work Phone: [facility] Procedures Date Procedure Procedure Detail Performing Clinician Start: 06-06-2023 INFLUENZA VACCINE, P RSV FREE, AGE 65+ YR, HIGH DOSE, QUADRIVALENT (FLUZONE HIGH-DOSE) Jeff Virgen MD Work Phone: Start: 05-31-2022 INFLUENZA SEASONAL QUADRIVALENT HIGH DOSE AGE 65+ Jeff Virgen MD Work Phone: Start: 03-03-2022 Adult depression screening assessment Jeff Virgen MD Work Phone: Start: 07-16-2018 Adult depression screening assessment Jeff Virgen MD Work Phone: Laboratory test resu lt abnormal Abnormal serum level of lipase Jeff Virgen MD Work Phone: Plan of Treatment Date Care Activity Detail Author Start: 09-06-2024 Annual PCP Team Cota myriam Disease Visit Annual PCP Team Chronic Disease Visit [facility] Start: 09-06-2024 BP Controlled (<130/80) BP Controlle d (<130/80) [facility] Start: 09-06-2024 RSV Vaccine (1 - 1-d ose 60+ series) RSV Vaccine (1 - 1-dose 60+ series) [facility] Immunizations Immunization Date Immunization Notes Care Provider Fa nadege 06-06-2023 influenza (HD-IIV4) vaccine, age 65+ yr, high dose, quadrivalent, PF (FLUZONE HIGH-DOSE) Jeff Virgen MD Work Phone: [facility] 05-31-2022 influenza, high-dose , quadrivalent vaccine (FLUZONE HIGH DOSE QUADRIVALENT) Jeff Viregn MD Work Phone: [facility] 05-31-2022 influenza virus vacc ine, unspecified formulation Jeff Virgen MD Work Phone: [facility] 06-17-2021 influenza, seasonal, injectable Jeff Virgen MD Work Phone: [facility] 06-17-2021 influenza, seasonal, injectable, preservative free Jeff Virgen MD Work Phone: [facility] 07-26-2020 influenza, high-dose , quadrivalent vaccine (FLUZONE HIGH DOSE QUADRIVALENT) Jeff Virgen MD Work Phone: [facility] 08-21-2019 influenza, seasonal, injectable Jeff Virgen MD Work Phone: [facility] 08-21-2019 influenza, seasonal, injectable, preservative free Jeff Virgen MD Work Phone: [facility] Work Phone: 07-04-2019 influenza, high dose seasonal, preservative-free Jeff Virgen MD Work Phone: [facility] 07-16-2018 influenza, high dose seasonal, preservative-free Jeff Virgen MD Work Phone: [facility] 08-27-2017 influenza, high dose seasonal, preservative-free Jeff Virgen MD Work Phone: [facility] 08-17-2016 pneumococcal polysaccharide vaccine, 23 valent Jeff Virgen MD Work Phone: [facility] 06-14-2016 influenza, high dose seasonal, preservative-free Jeff Virgen MD Work Phone: [facility] Work Phone: 07-14-2015 influenza, high dose seasonal, preservative-free Jeff Virgen MD Work Phone: [facility] Work Phone: 06-16-2015 pneumococcal conjuga te vaccine, 13 valent Jeff Virgen MD Work Phone: [facility] Work Phone: 06-25-2014 influenza, seasonal, injectable Jeff Virgen MD Work Phone: [facility] 07-12-2013 influenza virus vacc ine, unspecified formulation Jeff Virgen MD Work Phone: [facility] 06-15-2012 influenza virus vacc ine, unspecified formulation eJff Virgen MD Work Phone: [facility] Work Phone: 06-07-2011 influenza virus vacc ine, unspecified formulation Jeff Virgen MD Work Phone: [facility] Work Phone: 07-02-2010 influenza virus vacc ine, unspecified formulation Jeff Virgen MD Work Phone: [facility] Work Phone: 07-14-2009 pneumococcal polysaccharide vaccine, 23 valent Jeff Virgen MD Work Phone: [facility] 06-09-2009 influenza virus vacc ine, unspecified formulation Jeff Virgen MD Work Phone: [facility] 07-22-2008 influenza virus vacc ine, unspecified formulation Jeff Virgen MD Work Phone: [facility] 07-27-2007 influenza virus vacc ine, unspecified formulation Jeff Virgen MD Work Phone: [facility] Work Phone: 07-23-2006 influenza virus vacc ine, unspecified formulation Jeff Virgen MD Work Phone: [facility] Work Phone: 07-13-2005 influenza virus vacc ine, unspecified formulation Jeff Virgen MD Work Phone: [facility] Work Phone: Payers Date Payer Category Payer Unknown PRIMETIME PRIMET WES O POS [id number] 2014-Present [phone] [address] [place] [address] O [id number] 2014 Unknown [id number] 2014 Unknown [id number] Social History Date Type Detail Facility Start: 08-17-2016 End: 11-29-2022 Tobacco smoking status NHIS Ex-smoker [facility] End: 09-17-1980 History of tobacco use Current smoker [facility] End: 09-17-1980 History of tobacco use Cigarette Smoker [facility] Start: 11-21-2021 End: 09-06-2023 Alcohol intake Current non-drinker of alcohol (finding) [facility] Start: 1945 Sex Assigned At Not on file [facility] Start: 10-19-2021 End: 05-31-2022 Exposure to SARS-CoV-2 (event) Not sure [facility] Start: 03-29-2022 End: 04-08-2022 Exposure to SARS-CoV-2 (event) Unable to assess [facility] Work Phone: Start: 08-17-2016 End: 01-18-2023 Cigarettes smoked current (pack per day) - Reported 2 [facility] Start: 08-17-2016 End: 11-29-2022 Tobacco use and exposure Smokeless tobacco non-user [facility] Start: 01-19-2023 History SDOH Alcohol Frequency 1 [facility] Start: 01-19-2023 History SDOH Alcohol Std Drinks 0 [facility] Start: 01-19-2023 History SDOH Social Connections Phone 5 [facility] Start: 01-19-2023 History SDOH Social Connections Get Together 3 [facility] Start: 01-19-2023 History SDOH Social Connections Membership 2 [facility] Start: 01-19-2023 History SDOH Social Connections Living 4 [facility] Start: 1945 Sex Assigned At Male C [facility] Start: 01-18-2023 End: 06-06-2023 Social connection and isolation panel [facility] Do you belong to any clubs or organizations such as faith groups, unions, fraternal or athletic groups, or school groups? No [facility] Are you now , , , , never or living with a partner? [facility] How often to you hav e a drink containing alcohol? Never [facility] How many standard dr inks containing alcohol do you have on a typical day? Patient does not drink [facility] How hard is it for y ou to pay for the very basics like food, housing, medical care, and heating Not very hard [facility] Do you feel stress - tense, restless, nervous, or anxious, or unable to sleep at night because your mind is troubled all the time - these days [OSQ] Not at all [facility] (I/We) worried wheth er (my/our) food would run out before (I/we) got money to buy more. Never true [facility] Start: 01-18-2023 Gender identity Identifies as male gender (finding) [facility] Medical Equipment Procedure Code Equipment Code Equipment Origin al Text Equipment Identifier Dates 1 Each twice mónica ly. Accucheck compact test strips, dx-NIDDM Start: 08-20-2013 Clinical Notes 01-31-2021 to 09-06-2023 Telephone Encounter - Liyah Monroy RN - 09/06/2023 10:18 AM ESTTelephone Encounter - Christine Bob - 08/27/2023 7:18 PM ESTTelephone Encounter - Lulu Walls - 08/07/2023 2:34 PM EST Note Date & Type Note Facility 09-06-2023 Note HNO ID: [id number] Author: Hellen Lynch RT(R) Service: ? Author Type: Respiratory Care Program Director Type: Progress Notes Filed: 09/06/2023 3:28 PM Note Text: Radiology Service Progress Note PATIENT NAME: Faisal Alarcon DATE OF SERVICE: September 06, 2023 TIME: 3:17 PM PATIENT IDENTITY VERIFICATION COMPLETED USING TWO (2) IDENTIFIERS: Name and Date of confirmed by patient verbally. FALL SCREENING: Has the patient had 2 falls in the last year or 1 fall with injury or currently using an Ambulatory Assistive Device (Walker, Cane, Wheelchair, Crutches, etc.)? No PATIENT GENDER DATA: Male PATIENT RELEVANT IMPLANT DATA REVIEWED: Yes RADIOLOGY DEPARTMENT: General X-ray: Exam(s) Completed: Chest X-Ray PERIPHERAL IV DATA: Not applicable SIGNED BY: RT Margarita(R) September 06, 2023 3:17 PM [facility] 09-06-2023 Note HNO ID: [id number] Author: Anum Cheung APRN.MANAGER OF APPLICATIONS DEVELOPMENT Service: ? Author Type: Nurse Practitioner Type: Progress Notes Filed: 09/06/2023 3:13 PM Note Text: Chief Complaint Patient presents with: cough: Started 2-3 weeks ago , sinus drainage, so sore throat fevers or chills or body aches HPI Faisal Alarcon is a 78 year old male who presents here today for Above Complaints.. Faisal is an established patient of Dr. Marilynn MD. He is a new patient to me today. Concerns today... Per triage from today: Reason for Disposition [1] MILD difficulty breathing (e.g., minimal/no SOB at rest, SOB with walking, pulse <100) AND [2] still present when not coughing Answer Assessment - Initial Assessment Questions 1. ONSET: The cough began about a month ago. 2. SEVERITY: The cough today he states he has coughing spells it's pretty bad, but he can go a while in between. 3. SPUTUM: The color of his sputum clear/white and thick. 4. HEMOPTYSIS: Pt denies coughing up any blood. He states he is blowing out blood through his nose 2 in mucus from his nose and had a medium red cast to it. 5. DIFFICULTY BREATHING: - MILD: No SOB at rest, mild SOB with walking, speaks normally in sentences, can lie down, no retractions, pulse < 100. - MODERATE: SOB at rest, SOB with minimal exertion and prefers to sit, cannot lie down flat, speaks in phrases, mild retractions, audible wheezing, pulse 100-120. - SEVERE: Very SOB at rest, speaks in single words, struggling to breathe, sitting hunched forward, retractions, pulse > 120 Pt denies difficulty breathing, O2 96% HR 70s, mild SOB with exertion. 6. FEVER: Denies, but has not been checking. 7. CARDIAC HISTORY: Pt reports history of heart disease congestive heart failure. Pt denies heart attack. 8. LUNG HISTORY: Pt denies any history of lung disease such as pulmonary embolus, asthma, emphysema. 9. PE RISK FACTORS: Pt denies a history of blood clots, has not had recent major surgery, recent prolonged travel, bedridden. 10. OTHER SYMPTOMS: Pt reports a runny nose but now it's thick and he has now noticed a bloody cat to the mucus, weakness, and fatigue. Pt denies wheezing or chest pain. 11. : N/A 12. TRAVEL: Pt denies travel out of the country in the last month. Today in office... Congestion and cough with mucous x 2-3 weeks. Started as yellow/clear and now has blood streaks in the sputum. Hx of recurrent pneumonia. Last dx last year/winter. Pt reports wheezing just started today. No worsening SOB from baseline. No fevers/chills. Pt also reports R ear ache. No other concerns or complaints. Past medical history, appointments, medications, allergies reviewed. 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 Stable for years. Sleep apnea 03/31/2009 Pt declined my recs for testing as of 03-25 Previous Surgical History PAST SURGICAL HISTORY Procedure Laterality Date COLONOSCOPY FLX DX W/COLLJ SPEC WHEN PFRMD 01/12/2010 Colonoscopy COLSC FLX W/REMOVAL LESION BY HOT BX FORCEPS 04/21/15 CYSTOURETHROSCOPY 02/07/2019 Cystoscopy and cystolitholapaxy and laser of bladder stone with evacuation of stone fragments Dr Daley PAST SURGICAL HISTORY OF RIGHT WRIST SURGERY, had repair of fx RPR UMBILICAL HERNIA < 5 YRS REDUCIBLE Hernia repair, umbilical Family History FAMILY HISTORY Problem Relation Age of Onset Heart Father Hypertension Father Cancer Mother Colon Cancer Sister Cancer Sister Colon Cancer Brother Patient Allergies ALLERGIES Allergen Reactions Amoxicillin generalized erythema Current Medications Current Outpatient Medications on File Prior to Visit Medication Sig simvastatin (ZOCOR) 40 mg tablet Take 1 tablet by mouth daily at bedtime. flecainide (TAMBOCOR) 150 mg tablet Take 1 tablet by mouth every 12 hours. Prescribed by outside damage cutter famotidine (PEPCID) 20 mg tablet Take 1 tablet by mouth two times a day. albuterol HFA (VENTOLIN HFA) 90 mcg/actuation inhaler Inhale 2 Puffs as instructed every 4 hours as needed. colestipol (COLESTID) 1 gram tablet Take 1 tablet by mouth once daily. ELIQUIS 5 mg tab(s) Take 1 tablet by mouth twice daily. spironolactone (ALDACTONE) 25 mg tablet Take 1 tablet by mouth once daily. carvedilol (COREG) 25 mg tablet Take 1 tablet by mouth twice daily. senna (SENOKOT) 8.6 mg tab Take 1 tablet by mouth twice daily as needed for constipation. dilTIAZem CD (CARDIZEM CD, CARTIA XT) 120 mg 24 hr capsule Take 1 capsule by mouth once daily. insulin lispro (HUMALOG KWIKPEN INSULIN) 100 unit/mL Inject 22 Units subcutane (more content not included)... [facility] 09-06-2023 Miscellaneous Notes Reason for Disposition [1] MILD difficulty breathing (e.g., minimal/no SOB at rest, SOB with walking, pulse <100) AND [2] still present when not coughing Answer Assessment - Initial Assessment Questions 1. ONSET: The cough began about a month ago. 2. SEVERITY: The cough today he states he has coughing spells it's pretty bad, but he can go a while in between. 3. SPUTUM: The color of his sputum clear/white and thick. 4. HEMOPTYSIS: Pt denies coughing up any blood. He states he is blowing out blood through his nose 2 in mucus from his nose and had a medium red cast to it. 5. DIFFICULTY BREATHING: - MILD: No SOB at rest, mild SOB with walking, speaks normally in sentences, can lie down, no retractions, pulse < 100. - MODERATE: SOB at rest, SOB with minimal exertion and prefers to sit, cannot lie down flat, speaks in phrases, mild retractions, audible wheezing, pulse 100-120. - SEVERE: Very SOB at rest, speaks in single words, struggling to breathe, sitting hunched forward, retractions, pulse > 120 Pt denies difficulty breathing, O2 96% HR 70s, mild SOB with exertion. 6. FEVER: Denies, but has not been checking. 7. CARDIAC HISTORY: Pt reports history of heart disease congestive heart failure. Pt denies heart attack. 8. LUNG HISTORY: Pt denies any history of lung disease such as pulmonary embolus, asthma, emphysema. 9. PE RISK FACTORS: Pt denies a history of blood clots, has not had recent major surgery, recent prolonged travel, bedridden. 10. OTHER SYMPTOMS: Pt reports a runny nose but now it's thick and he has now noticed a bloody cat to the mucus, weakness, and fatigue. Pt denies wheezing or chest pain. 11. : N/A 12. TRAVEL: Pt denies travel out of the country in the last month. Protocols used: Cough - Acute [id number] documented in this encounter [facility] 08-27-2023 Miscellaneous Notes Patient phones requesting refills as follows: Requested Prescriptions Pending Prescriptions Disp Refills simvastatin (ZOCOR) 40 mg tablet 90 tablet 3 Sig: Take 1 tablet by mouth daily at bedtime. ALFA 07/23/23 NOV 12/05/23 Please review and advise. Christine Bob documented in this encounter [facility] 08-07-2023 Miscellaneous Notes Forms completed and signed and faxed back to [employer] at [phone]. Patient informed. Lulu Walls Type of form: Patient Assistance. [employer] Care Form received via walk in When form is completed, Fax form to number on form. Form has been forwarded to Physician Desk: Dr. Virgen. Lulu Walls documented in this encounter [facility] 07-23-2023 Note HNO ID: [id number] Author: Brenda Arrington RT(R) Service: Radiology Author Type: Technologist Type: Progress Notes Filed: 07/23/2023 3:10 PM Note Text: Radiology Service Progress Note PATIENT NAME: Faisal Alarcon DATE OF SERVICE: July 23, 2023 TIME: 2:55 PM PATIENT IDENTITY VERIFICATION COMPLETED USING TWO (2) IDENTIFIERS: Name and Date of confirmed by patient verbally. FALL SCREENING: Has the patient had 2 falls in the last year or 1 fall with injury or currently using an Ambulatory Assistive Device (Walker, Cane, Wheelchair, Crutches, etc.)? Yes, Patient High Risk for Falls What interventions were put in place to prevent falls during this visit? Instructed Patient to Call for Help if Needed, Offered Assistance with Transfers/Clothing, and Increased Observations by Caregivers PATIENT GENDER DATA: Male PATIENT RELEVANT IMPLANT DATA REVIEWED: Yes RADIOLOGY DEPARTMENT: General X-ray: Exam(s) Completed: Pelvis X-Ray: Pelvis with Hip Right PERIPHERAL IV DATA: Not applicable SIGNED BY: Brenda Arrington, RT(R) July 23, 2023 2:55 PM [facility] 07-23-2023 Note HNO ID: [id number] Author: Jarvis Nicole MD Service: ? Author Type: Physician Type: Progress Notes Filed: 07/23/2023 3:36 PM Note Text: Chief Complaint Patient presents with: Pain: Right hip pain x 3 days. Making walking difficult. Patient reports walker is helpful. HPI Faisal Alarcon is a 78 year old male who presents here today for Above Complaints.. Patient complaining of pain in his right hip which radiates down his right leg to his toes which started about 3 days ago without injury.Hip pain described as intermittent light throbbing, currently 10. Radiating pain described as a light shock. Exacerbated with walking. Improved with use of his walker. Has not tried OTC analgesics, ice/heat. Denies fall/injury to hip, erythema, swelling, fever/chills, back pain, loss of bowel or bladder control, saddle anesthesia, LE weakness. Past medical history, appointments, medications, allergies reviewed. 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 Stable for years. Sleep apnea 03/31/2009 Pt declined my recs for testing as of 03-25 Previous Surgical History PAST SURGICAL HISTORY Procedure Laterality Date COLONOSCOPY FLX DX W/COLLJ SPEC WHEN PFRMD 01/12/2010 Colonoscopy COLSC FLX W/REMOVAL LESION BY HOT BX FORCEPS 04/21/15 CYSTOURETHROSCOPY 02/07/2019 Cystoscopy and cystolitholapaxy and laser of bladder stone with evacuation of stone fragments Dr Daley PAST SURGICAL HISTORY OF RIGHT WRIST SURGERY, had repair of fx RPR UMBILICAL HERNIA < 5 YRS REDUCIBLE Hernia repair, umbilical Family History FAMILY HISTORY Problem Relation Age of Onset Heart Father Hypertension Father Cancer Mother Colon Cancer Sister Cancer Sister Colon Cancer Brother Patient Allergies ALLERGIES Allergen Reactions Amoxicillin generalized erythema Current Medications Current Outpatient Medications on File Prior to Visit Medication Sig flecainide (TAMBOCOR) 150 mg tablet Take 1 tablet by mouth every 12 hours. Prescribed by outside damage cutter famotidine (PEPCID) 20 mg tablet Take 1 tablet by mouth two times a day. albuterol HFA (VENTOLIN HFA) 90 mcg/actuation inhaler Inhale 2 Puffs as instructed every 4 hours as needed. colestipol (COLESTID) 1 gram tablet Take 1 tablet by mouth once daily. ELIQUIS 5 mg tab(s) Take 1 tablet by mouth twice daily. spironolactone (ALDACTONE) 25 mg tablet Take 1 tablet by mouth once daily. carvedilol (COREG) 25 mg tablet Take 1 tablet by mouth twice daily. dilTIAZem CD (CARDIZEM CD, CARTIA XT) 120 mg 24 hr capsule Take 1 capsule by mouth once daily. insulin lispro (HUMALOG KWIKPEN INSULIN) 100 unit/mL Inject 22 Units subcutaneously three times daily before meals. Getting [facility] metFORMIN ER (GLUCOPHAGE XR) 500 mg 24 hr tablet Take 2 tablets by mouth twice daily before meals. insulin glargine (BASAGLAR KWIKPEN U-100 INSULIN) 100 unit/mL (3 mL) Inject 90 Units subcutaneously daily at bedtime. simvastatin (ZOCOR) 40 mg tablet Take 1 tablet by mouth daily at bedtime. finasteride (PROSCAR) 5 mg tablet aspirin 81 mg chewable tablet Take 81 mg by mouth once daily. insulin needles, DISPOSABLE, (1ST TIER UNIFINE PENTIPS) 31 gauge x 5/16 ndle 1 Each once daily. DX: E11.9 Insulin: Yes Insulin Syringe-Needle U-100 1/2 mL 29 x 1/2 syrg 1 Each once daily. USE ONE SYRINGE FOR EACH DOSE/1PER DAY, (E11.9, Z79.4) Diabetes mellitus type 2, insulin dependent. Lancets (ACCU-CHEK SOFTCLIX LANCETS) lancets Test blood sugar(s) 1 times daily. Dx: 250.00. Insulin: Yes COMPOUNDED PRESCRIPTION 1 Each twice daily. Accucheck compact test strips, dx-NIDDM senna (SENOKOT) 8.6 mg tab Take 1 tablet by mouth twice daily as needed for constipation. losartan-hydroCHLOROthiazide (HYZAAR) 100-12.5 mg per tablet Take 1 tablet by mouth once daily. No current facility-administered medications on file prior to visit. Social History Social History Tobacco Use Smoking status: Former Packs/day: 2.00 Years: 10.00 Additional pack years: 0.00 Total pack years: 20.00 Types: Cigarettes Quit date: 09/17/1980 Years since quittin.8 Smokeless tobacco: Never Vaping Use Vaping Use: Never used Substance Use Topics Alcohol use: No Drug use: No Review of Symptoms REVIEW OF SYSTEMS See HPI EXAM: BP 128/70 Pulse 64 Resp 20 SpO2 96% General Appearance: Well appearing, alert, in no acute distress, well-hydrated, well nourished.. Skin: Skin color, texture, turgor normal, no suspicious rashes or lesions. Back:no pain to palpation of vertebrae, good flexion and extension, good (more content not included)... [facility] 07-23-2023 History of Presen t illness Narrative Chief Complaint Patient presents with: Pain: Right hip pain x 3 days. Making walking difficult. Patient reports walker is helpful. HPI Faisal Alarcon is a 78 year old male who presents here today for Above Complaints.. Patient complaining of pain in his right hip which radiates down his right leg to his toes which started about 3 days ago without injury.Hip pain described as intermittent light throbbing, currently 1/10. Radiating pain described as a light shock. Exacerbated with walking. Improved with use of his walker. Has not tried OTC analgesics, ice/heat. Denies fall/injury to hip, erythema, swelling, fever/chills, back pain, loss of bowel or bladder control, saddle anesthesia, LE weakness. Past medical history, appointments, medications, allergies reviewed. 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 Stable for years. Sleep apnea 03/31/2009 Pt declined my recs for testing as of 03-25 Previous Surgical History PAST SURGICAL HISTORY Procedure Laterality Date COLONOSCOPY FLX DX W/COLLJ SPEC WHEN PFRMD 01/12/2010 Colonoscopy COLSC FLX W/REMOVAL LESION BY HOT BX FORCEPS 04/21/15 CYSTOURETHROSCOPY 02/07/2019 Cystoscopy and cystolitholapaxy and laser of bladder stone with evacuation of stone fragments Dr Daley PAST SURGICAL HISTORY OF RIGHT WRIST SURGERY, had repair of fx RPR UMBILICAL HERNIA < 5 YRS REDUCIBLE Hernia repair, umbilical Family History FAMILY HISTORY Problem Relation Age of Onset Heart Father Hypertension Father Cancer Mother Colon Cancer Sister Cancer Sister Colon Cancer Brother Patient Allergies ALLERGIES Allergen Reactions Amoxicillin generalized erythema Current Medications Current Outpatient Medications on File Prior to Visit Medication Sig flecainide (TAMBOCOR) 150 mg tablet Take 1 tablet by mouth every 12 hours. Prescribed by outside damage cutter famotidine (PEPCID) 20 mg tablet Take 1 tablet by mouth two times a day. albuterol HFA (VENTOLIN HFA) 90 mcg/actuation inhaler Inhale 2 Puffs as instructed every 4 hours as needed. colestipol (COLESTID) 1 gram tablet Take 1 tablet by mouth once daily. ELIQUIS 5 mg tab(s) Take 1 tablet by mouth twice daily. spironolactone (ALDACTONE) 25 mg tablet Take 1 tablet by mouth once daily. carvedilol (COREG) 25 mg tablet Take 1 tablet by mouth twice daily. dilTIAZem CD (CARDIZEM CD, CARTIA XT) 120 mg 24 hr capsule Take 1 capsule by mouth once daily. insulin lispro (HUMALOG KWIKPEN INSULIN) 100 unit/mL Inject 22 Units subcutaneously three times daily before meals. Getting through [facility] metFORMIN ER (GLUCOPHAGE XR) 500 mg 24 hr tablet Take 2 tablets by mouth twice daily before meals. insulin glargine (BASAGLAR KWIKPEN U-100 INSULIN) 100 unit/mL (3 mL) Inject 90 Units subcutaneously daily at bedtime. simvastatin (ZOCOR) 40 mg tablet Take 1 tablet by mouth daily at bedtime. finasteride (PROSCAR) 5 mg tablet aspirin 81 mg chewable tablet Take 81 mg by mouth once daily. insulin needles, DISPOSABLE, (1ST TIER UNIFINE PENTIPS) 31 gauge x 5/16 ndle 1 Each once daily. DX: E11.9 Insulin: Yes Insulin Syringe-Needle U-100 1/2 mL 29 x 1/2 syrg 1 Each once daily. USE ONE SYRINGE FOR EACH DOSE/1PER DAY, (E11.9, Z79.4) Diabetes mellitus type 2, insulin dependent. Lancets (ACCU-CHEK SOFTCLIX LANCETS) lancets Test blood sugar(s) 1 times daily. Dx: 250.00. Insulin: Yes COMPOUNDED PRESCRIPTION 1 Each twice daily. Accucheck compact test strips, dx-NIDDM senna (SENOKOT) 8.6 mg tab Take 1 tablet by mouth twice daily as needed for constipation. losartan-hydroCHLOROthiazide (HYZAAR) 100-12.5 mg per tablet Take 1 tablet by mouth once daily. No current facility-administered medications on file prior to visit. Social History Social History Tobacco Use Smoking status: Former Packs/day: 2.00 Years: 10.00 Additional pack years: 0.00 Total pack years: 20.00 Types: Cigarettes Quit date: 09/17/1980 Years since quittin.8 Smokeless tobacco: Never Vaping Use Vaping Use: Never used Substance Use Topics Alcohol use: No Drug use: No Review of Symptoms REVIEW OF SYSTEMS See HPI EXAM: BP 128/70 Pulse 64 Resp 20 SpO2 96% General Appearance: Well appearing, alert, in no acute distress, well-hydrated, well nourished.. Skin: Skin color, texture, turgor normal, no suspicious rashes or lesions. Back:no pain to palpation of vertebrae, good flexion and extension, good range of motion, no muscle tenderness, reflexes are 2+ and symmetric, motor and sensory appear to be normal, no evidence of scoliosis HIP: Location: Right Redness: No. Warmth: No. Range of motion: Limited Tenderness over trochanteric bursa: No Pain with movement: Yes. Health Maintenance List RSV Vaccine(1 - 1-dose 60+ series) Never done Dilated Retinal Exam due on 10/18/2022 DTaP,Tdap,Td Vaccine(1 - Tdap) due on 04/30/2024 Shingrix Vaccine(1 of 2) due on 04/30/2024 Covid-19 Vaccine(1) due on 04/30/2024 Hepatitis B Vaccine(1 of 3 - Risk 3-dose series) due on 06/06/2024 HbA1C due on 11/16/2023 Urine Albumin:Creatinine Ratio due on 11/28/2023 LDL Cholesterol due on 11/28/2023 Diabetic Foot Exam due on 06/06/2024 Annual PCP Team Chronic Disease Visit due on 06/09/2024 BP Controlled (<130/80) due on 06/09/2024 Influenza Vaccine Completed Advance Directive Discussion Completed Depression Assessment Completed Pneumococcal Vaccine: 65+ Completed Colorectal Cancer Screening Discontinued ASSESSMENT/PLAN: 1. Acute hip pain, right - ICD9: 719.45, ICD10: M25.551 Suspect pain 2/2 OA of right hip vs sciatica. Will obtain xray to confirm and rule out AVN. Unable to take NSAIDs while on anticoagulation. Discussed OTC tylenol, ice/heat. If OA present, will refer to PT or ortho depending on severity. Continue use of walker with ambulation. - XR HIP GENERAL 3V PELV/AP/LAT RIGHT Jarvis Nicole MD documented in this encounter [facility] 07-13-2023 Miscellaneous Notes Notified that will place in medical records for package pick up. Can package pick up starting tomorrow 07/14/23. Printed. Received notification that patient will be due for re-enrollment for the [facility] patient assistance programs of Humalog and Basaglar starting 09/17/23. Call to daughter and advised her of this. She will start the process and get it to us. She is asking for a handicap placard to be completed for pt. Once done, call her for package pick up. Janet King Ma documented in this encounter [facility] 06-19-2023 Miscellaneous Notes Patient has been identified by name and date of : Yes, Jackelin Tinajero RN Date 06/19/2023 Time Daughter phones for refill(s): Requested Prescriptions Pending Prescriptions Disp Refills famotidine (PEPCID) 20 mg tablet 60 tablet 2 Sig: Take 1 tablet by mouth two times a day. Date of last office visit with pcp: 06/06/2023 Future appt: 12/04/2022 Last 2 Encounter Wt Readings: Date: Wt: 06/09/2023 132.5 kg (292 lb) 06/06/2023 134.2 kg (295 lb 12.8 oz) Previous labs/tests for medication: Blood Pressure: BUN (mg/dL) Date Value 05/18/2023 31 08/16/2021 20 Sodium (mmol/L) Date Value 05/18/2023 132 08/16/2021 134 Last 1 Encounter BP Readings: Date: BP: 06/09/2023 124/68 Liver Function: ALT (U/L) Date Value 05/18/2023 24 08/16/2021 17 AST (U/L) Date Value 05/18/2023 23 08/16/2021 19 Please advise. Thank you. Jackelin Tinajero RN documented in this encounter [facility] 06-09-2023 Note HNO ID: [id number] Author: Hellen Lynch RT(R) Service: ? Author Type: Respiratory Care Program Director Type: Progress Notes Filed: 06/09/2023 11:43 AM Note Text: Radiology Service Progress Note PATIENT NAME: Faisal Alarcon DATE OF SERVICE: June 09, 2023 TIME: 11:33 AM PATIENT IDENTITY VERIFICATION COMPLETED USING TWO (2) IDENTIFIERS: Name and Date of confirmed by patient verbally. FALL SCREENING: Has the patient had 2 falls in the last year or 1 fall with injury or currently using an Ambulatory Assistive Device (Walker, Cane, Wheelchair, Crutches, etc.)? No PATIENT GENDER DATA: Male PATIENT RELEVANT IMPLANT DATA REVIEWED: Yes RADIOLOGY DEPARTMENT: General X-ray: Exam(s) Completed: Chest X-Ray PERIPHERAL IV DATA: Not applicable SIGNED BY: Hellen Lynch RT(R) June 09, 2023 11:33 AM [facility] 06-09-2023 Note HNO ID: [id number] Author: Jarvis Nicole MD Service: ? Author Type: Physician Type: Progress Notes Filed: 06/09/2023 11:31 AM Note Text: Chief Complaint Patient presents with: Cough: X 3 days Fatigue: Slept most of the day yesterday Wheezing Shortness of Breath HPI Faisal Alarcon is a 78 year old male who presents here today for Above Complaints. Accompanied today by daughter Loan. COVID positive on 05/18. Too late to treat with antiviral at that time. Symptoms today are different than when he had COVID. Patient complaining of productive cough with yellow/clear sputum, wheezing, SOB, chest congestion, fatigue, new loss of taste or smell, nasal congestion, rhinorrhea. for the last 3 days. Started Mucinex yesterday, not sure if this is helping. Denies fever/chills, sore throat, headache, myalgias, chest pain, hemoptysis, nausea, vomiting, diarrhea. Symptoms stable. Has not been tested for COVID in the last 3 days. No sick contacts. Noted he got the flu shot 3 days ago. Past medical history, appointments, medications, allergies reviewed. 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 Stable for years. Sleep apnea 03/31/2009 Pt declined my recs for testing as of 03-25 Previous Surgical History PAST SURGICAL HISTORY Procedure Laterality Date COLONOSCOPY FLX DX W/COLLJ SPEC WHEN PFRMD 01/12/2010 Colonoscopy COLSC FLX W/REMOVAL LESION BY HOT BX FORCEPS 04/21/15 CYSTOURETHROSCOPY 02/07/2019 Cystoscopy and cystolitholapaxy and laser of bladder stone with evacuation of stone fragments Dr Daley PAST SURGICAL HISTORY OF RIGHT WRIST SURGERY, had repair of fx RPR UMBILICAL HERNIA < 5 YRS REDUCIBLE Hernia repair, umbilical Family History FAMILY HISTORY Problem Relation Age of Onset Heart Father Hypertension Father Cancer Mother Colon Cancer Sister Cancer Sister Colon Cancer Brother Patient Allergies ALLERGIES Allergen Reactions Amoxicillin generalized erythema Current Medications Current Outpatient Medications on File Prior to Visit Medication Sig colestipol (COLESTID) 1 gram tablet Take 1 tablet by mouth once daily. ELIQUIS 5 mg tab(s) Take 1 tablet by mouth twice daily. spironolactone (ALDACTONE) 25 mg tablet Take 1 tablet by mouth once daily. carvedilol (COREG) 25 mg tablet Take 1 tablet by mouth twice daily. senna (SENOKOT) 8.6 mg tab Take 1 tablet by mouth twice daily as needed for constipation. dilTIAZem CD (CARDIZEM CD, CARTIA XT) 120 mg 24 hr capsule Take 1 capsule by mouth once daily. insulin lispro (HUMALOG KWIKPEN INSULIN) 100 unit/mL Inject 22 Units subcutaneously three times daily before meals. Getting through [facility] metFORMIN ER (GLUCOPHAGE XR) 500 mg 24 hr tablet Take 2 tablets by mouth twice daily before meals. insulin glargine (BASAGLAR KWIKPEN U-100 INSULIN) 100 unit/mL (3 mL) Inject 90 Units subcutaneously daily at bedtime. simvastatin (ZOCOR) 40 mg tablet Take 1 tablet by mouth daily at bedtime. finasteride (PROSCAR) 5 mg tablet flecainide (TAMBOCOR) 150 mg tablet Take 1 tablet by mouth every 12 hours. Prescribed by outside damage cutter aspirin 81 mg chewable tablet Take 81 mg by mouth once daily. insulin needles, DISPOSABLE, (1ST TIER UNIFINE PENTIPS) 31 gauge x 5/16 ndle 1 Each once daily. DX: E11.9 Insulin: Yes Insulin Syringe-Needle U-100 1/2 mL 29 x 1/2 syrg 1 Each once daily. USE ONE SYRINGE FOR EACH DOSE/1PER DAY, (E11.9, Z79.4) Diabetes mellitus type 2, insulin dependent. Lancets (ACCU-CHEK SOFTCLIX LANCETS) lancets Test blood sugar(s) 1 times daily. Dx: 250.00. Insulin: Yes COMPOUNDED PRESCRIPTION 1 Each twice daily. Accucheck compact test strips, dx-NIDDM losartan-hydroCHLOROthiazide (HYZAAR) 100-12.5 mg per tablet Take 1 tablet by mouth once daily. No current facility-administered medications on file prior to visit. Social History Social History Tobacco Use Smoking status: Former Packs/day: 2.00 Years: 10.00 Additional pack years: 0.00 Total pack years: 20.00 Types: Cigarettes Quit date: 09/17/1980 Years since quittin.7 Smokeless tobacco: Never Vaping Use Vaping Use: Never used Substance Use Topics Alcohol use: No Drug use: No Review of Symptoms REVIEW OF SYSTEMS See HPI EXAM: BP 124/68 Pulse 79 Temp 37 ?C (98.6 ?F) Resp 30 Wt 132.5 kg (292 lb) SpO2 93% BMI 38.52 kg/m? General Appearance: Ill appearing. No acute distress. Skin: Skin color, texture, turgor normal, no suspicious rashes or lesions. Head: Normocephalic, no masses, lesions, tenderness or abnormalities. Eyes: Anicteric (more content not included)... [facility] 06-09-2023 History of Presen t illness Narrative Chief Complaint Patient presents with: Cough: X 3 days Fatigue: Slept most of the day yesterday Wheezing Shortness of Breath HPI Faisal Alarcon is a 78 year old male who presents here today for Above Complaints. Accompanied today by daughter Loan. COVID positive on 05/18. Too late to treat with antiviral at that time. Symptoms today are different than when he had COVID. Patient complaining of productive cough with yellow/clear sputum, wheezing, SOB, chest congestion, fatigue, new loss of taste or smell, nasal congestion, rhinorrhea. for the last 3 days. Started Mucinex yesterday, not sure if this is helping. Denies fever/chills, sore throat, headache, myalgias, chest pain, hemoptysis, nausea, vomiting, diarrhea. Symptoms stable. Has not been tested for COVID in the last 3 days. No sick contacts. Noted he got the flu shot 3 days ago. Past medical history, appointments, medications, allergies reviewed. 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 Stable for years. Sleep apnea 03/31/2009 Pt declined my recs for testing as of 03-25 Previous Surgical History PAST SURGICAL HISTORY Procedure Laterality Date COLONOSCOPY FLX DX W/COLLJ SPEC WHEN PFRMD 01/12/2010 Colonoscopy COLSC FLX W/REMOVAL LESION BY HOT BX FORCEPS 04/21/15 CYSTOURETHROSCOPY 02/07/2019 Cystoscopy and cystolitholapaxy and laser of bladder stone with evacuation of stone fragments Dr Daley PAST SURGICAL HISTORY OF RIGHT WRIST SURGERY, had repair of fx RPR UMBILICAL HERNIA < 5 YRS REDUCIBLE Hernia repair, umbilical Family History FAMILY HISTORY Problem Relation Age of Onset Heart Father Hypertension Father Cancer Mother Colon Cancer Sister Cancer Sister Colon Cancer Brother Patient Allergies ALLERGIES Allergen Reactions Amoxicillin generalized erythema Current Medications Current Outpatient Medications on File Prior to Visit Medication Sig colestipol (COLESTID) 1 gram tablet Take 1 tablet by mouth once daily. ELIQUIS 5 mg tab(s) Take 1 tablet by mouth twice daily. spironolactone (ALDACTONE) 25 mg tablet Take 1 tablet by mouth once daily. carvedilol (COREG) 25 mg tablet Take 1 tablet by mouth twice daily. senna (SENOKOT) 8.6 mg tab Take 1 tablet by mouth twice daily as needed for constipation. dilTIAZem CD (CARDIZEM CD, CARTIA XT) 120 mg 24 hr capsule Take 1 capsule by mouth once daily. insulin lispro (HUMALOG KWIKPEN INSULIN) 100 unit/mL Inject 22 Units subcutaneously three times daily before meals. Getting through [facility] metFORMIN ER (GLUCOPHAGE XR) 500 mg 24 hr tablet Take 2 tablets by mouth twice daily before meals. insulin glargine (BASAGLAR KWIKPEN U-100 INSULIN) 100 unit/mL (3 mL) Inject 90 Units subcutaneously daily at bedtime. simvastatin (ZOCOR) 40 mg tablet Take 1 tablet by mouth daily at bedtime. finasteride (PROSCAR) 5 mg tablet flecainide (TAMBOCOR) 150 mg tablet Take 1 tablet by mouth every 12 hours. Prescribed by outside damage cutter aspirin 81 mg chewable tablet Take 81 mg by mouth once daily. insulin needles, DISPOSABLE, (1ST TIER UNIFINE PENTIPS) 31 gauge x 5/16 ndle 1 Each once daily. DX: E11.9 Insulin: Yes Insulin Syringe-Needle U-100 1/2 mL 29 x 1/2 syrg 1 Each once daily. USE ONE SYRINGE FOR EACH DOSE/1PER DAY, (E11.9, Z79.4) Diabetes mellitus type 2, insulin dependent. Lancets (ACCU-CHEK SOFTCLIX LANCETS) lancets Test blood sugar(s) 1 times daily. Dx: 250.00. Insulin: Yes COMPOUNDED PRESCRIPTION 1 Each twice daily. Accucheck compact test strips, dx-NIDDM losartan-hydroCHLOROthiazide (HYZAAR) 100-12.5 mg per tablet Take 1 tablet by mouth once daily. No current facility-administered medications on file prior to visit. Social History Social History Tobacco Use Smoking status: Former Packs/day: 2.00 Years: 10.00 Additional pack years: 0.00 Total pack years: 20.00 Types: Cigarettes Quit date: 09/17/1980 Years since quittin.7 Smokeless tobacco: Never Vaping Use Vaping Use: Never used Substance Use Topics Alcohol use: No Drug use: No Review of Symptoms REVIEW OF SYSTEMS See HPI EXAM: BP 124/68 Pulse 79 Temp 37 C (98.6 F) Resp 30 Wt 132.5 kg (292 lb) SpO2 93% BMI 38.52 kg/m General Appearance: Ill appearing. No acute distress. Skin: Skin color, texture, turgor normal, no suspicious rashes or lesions. Head: Normocephalic, no masses, lesions, tenderness or abnormalities. Eyes: Anicteric sclera. Pupils are equally round and reactive to light. Extraocular movements are intact. . Ears: External ears normal, canals clear. Nose/Sinuses: Nares normal, septum midline, mucosa normal, no drainage or sinus tenderness. Oropharynx: Lips, mucosa, and tongue normal, teeth and gums normal, oropharynx normal. Neck: Supple, no adenopathy; thyroid symmetric, normal size, no bruits. Lungs: mildly decreased lung sounds bilaterally due to habitus. No wheezing, rhonchi, rales.. Heart: RRR without murmur, gallop, or rubs. No ectopy. Health Maintenance List BP Controlled (<130/80) Never done Dilated Retinal Exam due on 10/18/2022 DTaP,Tdap,Td Vaccine(1 - Tdap) due on 04/30/2024 Shingrix Vaccine(1 of 2) due on 04/30/2024 Covid-19 Vaccine(1) due on 04/30/2024 Hepatitis B Vaccine(1 of 3 - Risk 3-dose series) due on 06/06/2024 HbA1C due on 11/16/2023 Urine Albumin:Creatinine Ratio due on 11/28/2023 LDL Cholesterol due on 11/28/2023 Diabetic Foot Exam due on 06/06/2024 Annual PCP Team Chronic Disease Visit due on 06/06/2024 Influenza Vaccine Completed Advance Directive Discussion Completed Depression Assessment Completed Pneumococcal Vaccine: 65+ Completed Colorectal Cancer Screening Discontinued ASSESSMENT/PLAN: 1. Viral URI with cough - ICD9: 465.9, ICD10: J06.9 (primary diagnosis) - Discussed viral etiology and rationale for treatment. - Symptomatic treatment with prn analgesia - Supportive care with fluids and rest - The patient may also use OTC cough and cold meds as needed and nasal saline gtts and suction prn. - ALBUTEROL SULFATE HFA 90 MCG/ACTUATION AEROSOL INHALER - BENZONATATE 100 MG CAPSULE - XR CHEST 2V FRONTAL/LAT 2. Suspected COVID-19 virus infection - ICD9: V01.79, ICD10: Z20.822 Patient may have rebound COVID based on symptoms today. Will have him isolate and wear mask until results come back. Test for flu and RSV as well. See above for treatment and will call with results. Red flags for re-assessment reviewed with patient in detail. - COVID & INFLUENZA A/B & RSV NAAT, ROUTINE - COVID NAAT, UPPER RESPIRATORY, ROUTINE - ROUTINE FLU A/B + RSV 3. Bronchitis - ICD9: 490, ICD10: J40 Start albuterol PRN and obtain CXR today to rule out pneumonia. - ALBUTEROL SULFATE HFA 90 MCG/ACTUATION AEROSOL INHALER - BENZONATATE 100 MG CAPSULE - XR CHEST 2V FRONTAL/LAT Jarvis Nicole MD documented in this encounter [facility] 06-09-2023 Miscellaneous Notes Reason for Call: Cough, runny nose, chest congestion Outcome: Call PCP within [address] Jeff Sosa's office/[place] . Reason for Disposition Patient is HIGH RISK (e.g., age > 64 years, , HIV+, or chronic medical condition) Answer Assessment - Initial Assessment Questions 1. WORST SYMPTOM: Cough, chest congestion 2. ONSET: 06/07/23 3. COUGH: Productive, yellow mucus 4. RESPIRATORY DISTRESS: Wheezing 5. FEVER: Denies any fever 6. EXPOSURE: Denies any known exposure 7. FLU VACCINE 06/06/23 8. HIGH RISK DISEASE: Heart issues 9. : N/A 10. OTHER SYMPTOMS: Runny nose No medication changes within the last 30 days. Protocols used: Influenza - [id number] documented in this encounter [facility] 06-07-2023 Miscellaneous Notes Patient has been identified by name and date of : Yes, Provider Dr. Virgen Date 06/07/23 Time 1:51 pm Patient phones for refill(s): Requested Prescriptions Pending Prescriptions Disp Refills colestipol (COLESTID) 1 gram tablet 90 tablet 3 Sig: Take 1 tablet by mouth once daily. Date of last office visit in primary care: 06/06/23 next apt 12/05/23 Last 2 Encounter Wt Readings: Date: Wt: 06/06/2023 134.2 kg (295 lb 12.8 oz) 05/18/2023 131 kg (288 lb 12.8 oz) Previous labs/tests for medication: Not applicable Thank you. Kennedi Frey LPN documented in this encounter [facility] documented as of this encounter (statuses as of 06/06/2023) [facility] History of Past illness Narrative* Problem Noted Date Diagnosed Date Resolved Date Acute cholecystitis 06/06/2023 06/06/2023 06/06/20 Acute respiratory failure 06/06/2023 06/06/2023 History of atrial fibrillation 06/06/2023 06/06/2023 06/06/2023 Left lower lobe pneumonia 06/06/2023 06/06/2023 Mild dehydration 04/04/2023 06/06/2023 06/06/2023 Nausea 03/06/2023 06/06/2023 06/06/2023 Abdominal pain 08/18/2022 06/06/2023 06/06/2023 SOB (shortness of breath) 01/31/2021 Abnormal EKG 01/31/2021 05/06/2021 Low HDL (under 40) 06/09/2011 Nonspecific abnormal results of liver function study 03/31/2009 03/03/2022 Overview: ALT 57 in 02-22, 83 in 09-25, 75 in 03-25 Clarify when Crestor started as labs first abnl on 09-19-08 US 03-25: multiple, small GS with no GB wall thickening, liver with fatty infiltration Sciatica 06/15/2005 05/06/2021 Pure hypercholesterolemia 06/13/2005 Overview: LDL 62, HDL 31, TG 130 in 05-26 Morbid obesity 05/11/2005 06/06/2023 Paranoid schizophrenia, subc hronic condition with acute exacerbation 05/11/2005 04/23/2017 documented as of this encounter (statuses as of 06/08/2023) [facility] History of Past illness Narrative* Problem Noted Date Diagnosed Date Resolved Date Acute cholecystitis 06/06/2023 06/06/2023 06/06/20 23 Acute respiratory failure 06/06/2023 06/06/2023 History of atrial fibrillation 06/06/2023 06/06/2023 06/06/2023 Left lower lobe pneumonia 06/06/2023 06/06/2023 Mild dehydration 04/04/2023 06/06/2023 06/06/2023 Nausea 03/06/2023 06/06/2023 06/06/2023 Abdominal pain 08/18/2022 06/06/2023 06/06/2023 SOB (shortness of breath) 01/31/2021 Abnormal EKG 01/31/2021 05/06/2021 Low HDL (under 40) 06/09/2011 Nonspecific abnormal results of liver function study 03/31/2009 03/03/2022 Overview: ALT 57 in 02-22, 83 in 09-25, 75 in 03-25 Clarify when Crestor started as labs first abnl on 09-19-08 US 03-25: multiple, small GS with no GB wall thickening, liver with fatty infiltration Sciatica 06/15/2005 05/06/2021 Pure hypercholesterolemia 06/13/2005 Overview: LDL 62, HDL 31, TG 130 in 05-26 Morbid obesity 05/11/2005 06/06/2023 Paranoid schizophrenia, subc hronic condition with acute exacerbation 05/11/2005 04/23/2017 documented as of this encounter (statuses as of 06/09/2023) [facility] History of Past illness Narrative* Problem Noted Date Diagnosed Date Resolved Date Acute cholecystitis 06/06/2023 06/06/2023 06/06/20 Acute respiratory failure 06/06/2023 06/06/2023 History of atrial fibrillation 06/06/2023 06/06/2023 06/06/2023 Left lower lobe pneumonia 06/06/2023 06/06/2023 Mild dehydration 04/04/2023 06/06/2023 06/06/2023 Nausea 03/06/2023 06/06/2023 06/06/2023 Abdominal pain 08/18/2022 06/06/2023 06/06/2023 SOB (shortness of breath) 01/31/2021 Abnormal EKG 01/31/2021 05/06/2021 Low HDL (under 40) 06/09/2011 3 Nonspecific abnormal results of liver function study 03/31/2009 03/03/2022 Overview: ALT 57 in 6-08, 83 in 09-25, 75 in 03-25 Clarify when Crestor started as labs first abnl on 09-19-08 US 03-25: multiple, small GS with no GB wall thickening, liver with fatty infiltration Sciatica 06/15/2005 05/06/2021 Pure hypercholesterolemia 06/13/2005 Overview: LDL 62, HDL 31, TG 130 in 05-26 Morbid obesity 05/11/2005 06/06/2023 Paranoid schizophrenia, subc hronic condition with acute exacerbation 05/11/2005 04/23/2017 documented as of this encounter (statuses as of 06/09/2023) [facility] History of Past illness Narrative* Problem Noted Date Diagnosed Date Resolved Date Acute cholecystitis 06/06/2023 06/06/2023 06/06/20 Acute respiratory failure 06/06/2023 06/06/2023 History of atrial fibrillation 06/06/2023 06/06/2023 06/06/2023 Left lower lobe pneumonia 06/06/2023 06/06/2023 Mild dehydration 04/04/2023 06/06/2023 06/06/2023 Nausea 03/06/2023 06/06/2023 06/06/2023 Abdominal pain 08/18/2022 06/06/2023 06/06/2023 SOB (shortness of breath) 01/31/2021 Abnormal EKG 01/31/2021 05/06/2021 Low HDL (under 40) 06/09/2011 3 Nonspecific abnormal results of liver function study 03/31/2009 03/03/2022 Overview: ALT 57 in 6-08, 83 in 09-25, 75 in 03-25 Clarify when Crestor started as labs first abnl on 09-19-08 US 03-25: multiple, small GS with no GB wall thickening, liver with fatty infiltration Sciatica 06/15/2005 05/06/2021 Pure hypercholesterolemia 06/13/2005 Overview: LDL 62, HDL 31, TG 130 in 05-26 Morbid obesity 05/11/2005 06/06/2023 Paranoid schizophrenia, subc hronic condition with acute exacerbation 05/11/2005 04/23/2017 documented as of this encounter (statuses as of 06/21/2023) [facility] [facility] History of Past illness Narrative* Problem Noted Date Diagnosed Date Resolved Date Acute cholecystitis 06/06/2023 06/06/2023 06/06/20 Acute respiratory failure 06/06/2023 06/06/2023 History of atrial fibrillation 06/06/2023 06/06/2023 06/06/2023 Left lower lobe pneumonia 06/06/2023 06/06/2023 Mild dehydration 04/04/2023 06/06/2023 06/06/2023 Nausea 03/06/2023 06/06/2023 06/06/2023 Abdominal pain 08/18/2022 06/06/2023 06/06/2023 SOB (shortness of breath) 01/31/2021 Abnormal EKG 01/31/2021 05/06/2021 Low HDL (under 40) 06/09/2011 Nonspecific abnormal results of liver function study 03/31/2009 03/03/2022 Overview: ALT 57 in 02-22, 83 in 09-25, 75 in 03-25 Clarify when Crestor started as labs first abnl on 09-19-08 03-25: multiple, small GS with no GB wall thickening, liver with fatty infiltration Sciatica 06/15/2005 05/06/2021 Pure hypercholesterolemia 06/13/2005 Overview: LDL 62, HDL 31, TG 130 in 05-26 Morbid obesity 05/11/2005 06/06/2023 Paranoid schizophrenia, subc hronic condition with acute exacerbation 05/11/2005 04/23/2017 documented as of this encounter (statuses as of 07/13/2023) [facility] History of Past illness Narrative* Problem Noted Date Diagnosed Date Resolved Date Acute cholecystitis 06/06/2023 06/06/2023 06/06/20 Acute respiratory failure 06/06/2023 06/06/2023 History of atrial fibrillation 06/06/2023 06/06/2023 06/06/2023 Left lower lobe pneumonia 06/06/2023 06/06/2023 Mild dehydration 04/04/2023 06/06/2023 06/06/2023 Nausea 03/06/2023 06/06/2023 06/06/2023 Abdominal pain 08/18/2022 06/06/2023 06/06/2023 SOB (shortness of breath) 01/31/2021 Abnormal EKG 01/31/2021 05/06/2021 Low HDL (under 40) 06/09/2011 Nonspecific abnormal results of liver function study 03/31/2009 03/03/2022 Overview: ALT 57 in 02-22, 83 in 09-25, 75 in 03-25 Clarify when Crestor started as labs first abnl on 09-19-08 [place] 03-25: multiple, small GS with no GB wall thickening, liver with fatty infiltration Sciatica 06/15/2005 05/06/2021 Pure hypercholesterolemia 06/13/2005 Overview: LDL 62, HDL 31, TG 130 in 05-26 Morbid obesity 05/11/2005 06/06/2023 Paranoid schizophrenia, subc hronic condition with acute exacerbation 05/11/2005 04/23/2017 documented as of this encounter (statuses as of 07/24/2023) [facility]09[facility] History of Past illness Narrative* Problem Noted Date Diagnosed Date Resolved Date Acute cholecystitis 06/06/2023 06/06/2023 06/06/20 Acute respiratory failure 06/06/2023 06/06/2023 History of atrial fibrillation 06/06/2023 06/06/2023 06/06/2023 Left lower lobe pneumonia 06/06/2023 06/06/2023 Mild dehydration 04/04/2023 06/06/2023 06/06/2023 Nausea 03/06/2023 06/06/2023 06/06/2023 Abdominal pain 08/18/2022 06/06/2023 06/06/2023 SOB (shortness of breath) 01/31/2021 Abnormal EKG 01/31/2021 05/06/2021 Low HDL (under 40) 06/09/2011 Nonspecific abnormal results of liver function study 03/31/2009 03/03/2022 Overview: ALT 57 in 02-22, 83 in 09-25, 75 in 03-25 Clarify when Crestor started as labs first abnl on 09-19-08 [place] 03-25: multiple, small GS with no GB wall thickening, liver with fatty infiltration Sciatica 06/15/2005 05/06/2021 Pure hypercholesterolemia 06/13/2005 Overview: LDL 62, HDL 31, TG 130 in 05-26 Morbid obesity 05/11/2005 06/06/2023 Paranoid schizophrenia, subc hronic condition with acute exacerbation 05/11/2005 04/23/2017 documented as of this encounter (statuses as of 08/08/2023) [facility]09-20-[facility] History of Past illness Narrative* Problem Noted Date Diagnosed Date Resolved Date Acute cholecystitis 06/06/2023 06/06/2023 06/06/20 Acute respiratory failure 06/06/2023 06/06/2023 History of atrial fibrillation 06/06/2023 06/06/2023 06/06/2023 Left lower lobe pneumonia 06/06/2023 06/06/2023 Mild dehydration 04/04/2023 06/06/2023 06/06/2023 Nausea 03/06/2023 06/06/2023 06/06/2023 Abdominal pain 08/18/2022 06/06/2023 06/06/2023 SOB (shortness of breath) 01/31/2021 Abnormal EKG 01/31/2021 05/06/2021 Low HDL (under 40) 06/09/2011 3 Nonspecific abnormal results of liver function study 03/31/2009 03/03/2022 Overview: ALT 57 in 02-22, 83 in 09-25, 75 in 03-25 Clarify when Crestor started as labs first abnl on 09-19-08 [place] 03-25: multiple, small GS with no GB wall thickening, liver with fatty infiltration Sciatica 06/15/2005 05/06/2021 Pure hypercholesterolemia 06/13/2005 Overview: LDL 62, HDL 31, TG 130 in 05-26 Morbid obesity 05/11/2005 06/06/2023 Paranoid schizophrenia, subc hronic condition with acute exacerbation 05/11/2005 04/23/2017 documented as of this encounter (statuses as of 08/29/2023) [facility]09-20-2023 History of Past illness Narrative* Problem Noted Date Diagnosed Date Resolved Date Acute cholecystitis 06/06/2023 06/06/2023 06/06/20 Acute respiratory failure 06/06/2023 06/06/2023 History of atrial fibrillation 06/06/2023 06/06/2023 06/06/2023 Left lower lobe pneumonia 06/06/2023 06/06/2023 Mild dehydration 04/04/2023 06/06/2023 06/06/2023 Nausea 03/06/2023 06/06/2023 06/06/2023 Abdominal pain 08/18/2022 06/06/2023 06/06/2023 SOB (shortness of breath) 01/31/2021 Abnormal EKG 01/31/2021 05/06/2021 Low HDL (under 40) 06/09/2011 3 Nonspecific abnormal results of liver function study 03/31/2009 03/03/2022 Overview: ALT 57 in 02-22, 83 in 09-25, 75 in 03-25 Clarify when Crestor started as labs first abnl on 09-19-08 [place] 03-25: multiple, small GS with no GB wall thickening, liver with fatty infiltration Sciatica 06/15/2005 05/06/2021 Pure hypercholesterolemia 06/13/2005 Overview: LDL 62, HDL 31, TG 130 in 05-26 Morbid obesity 05/11/2005 06/06/2023 Paranoid schizophrenia, subc hronic condition with acute exacerbation 05/11/2005 04/23/2017 documented as of this encounter (statuses as of 09/07/2023) [facility]09-20-2023 NoteHNO ID: [id number] Author: Jeff Virgen MD Service: ? Author Type: Physician Type: Progress Notes Filed: 06/06/2023 12:35 PM Note Text: Patient presents with: 6 Month Exam HPI: Patient presents today for office visit for follow up. HTN: Patient is compliant with meds Yes Monitors bp at home: No. Denies side effects: Yes. Chest pain: No. Dyspnea: Yes. With exertion Edema: No. Palpitations: No. Syncope: No. Headache: No. Dizziness: No. DM: Reports overall feeling well. Medication side effects: No. Home sugar check frequency/results:does not check very often. Readings are fairly good when he does check. Hypoglycemic spells: No. Watching diet: No. Unexpected weight loss: No. Polyuria, polydipsia: No. Vision Changes: No. Foot lesions or numbness or pain: No. Still seeing Cardiology Still on Eliquis No bleeding risks. Reviewed recent visit with [facility]. His covid had been positive. Doing much better. No fever or chills. No cough. No dizziness. Component Latest Ref Rng AND Units 05/18/2023 05/18/2023 05/18/2023 05/18/2023 4:19 PM 4:29 PM 4:37 PM 4:37 PM WBC 3.70 - 11.00 k/uL 12.21 (H) RBC 4.20 - 6.00 m/uL 4.92 Hemoglobin 13.0 - 17.0 g/dL 14.0 Hematocrit 39.0 - 51.0 % 42.8 MCV 80.0 - 100.0 fL 87.0 MCH 26.0 - 34.0 pg 28.5 MCHC 30.5 - 36.0 g/dL 32.7 RDW-CV 11.5 - 15.0 % 13.2 Platelet Count 150 - 400 k/uL 255 MPV 9.0 - 12.7 fL 11.1 NRBC /100 WBC 0.0 Absolute nRBC <0.01 k/uL <0.01 Neut% % 76.7 Abs Neut (ANC) 1.45 - 7.50 k/uL 9.37 (H) Lymph% % 12.1 Abs Lymph 1.00 - 4.00 k/uL 1.48 Comal% % 9.5 Abs Comal <0.87 k/uL 1.16 (H) Eosin% % 1.7 Abs Eosin <0.46 k/uL 0.21 Baso% % 0.0 Abs Baso <0.11 k/uL 0.00 Platelet Estimate Adequate Red Cell Morph Reviewed: see results of individual morphologies Polychromasia Slight Ovalocytes Few DTYPE Manual Protein, Total 6.3 - 8.0 g/dL 7.0 Albumin 3.9 - 4.9 g/dL 4.1 Calcium 8.5 - 10.2 mg/dL 9.0 Bilirubin, Total 0.2 - 1.3 mg/dL 0.3 Alkaline Phosphatase 38 - 113 U/L 70 AST 14 - 40 U/L 23 ALT 10 - 54 U/L 24 Glucose 74 - 99 mg/dL 110 (H) BUN 9 - 24 mg/dL 31 (H) Creatinine 0.73 - 1.22 mg/dL 1.22 Sodium 136 - 144 mmol/L 132 (L) Potassium 3.7 - 5.1 mmol/L 4.3 Chloride 97 - 105 mmol/L 95 (L) CO2 22 - 30 mmol/L 24 Anion Gap 9 - 18 mmol/L 13 eGFR >=60 mL/min/1.73mA? 60 Color Yellow Light Yellow Light Yellow Clarity Clear Clear Clear Glucose, Urine Trace, Negative Negative Negative Bilirubin, Urine Negative Negative Negative Ketones, Urine Trace, Negative Negative Negative Specific Elizabeth, Ur 1.005 - 1.030 1.022 1.022 Hemoglobin/Blood,Ur Negative, Trace Negative Negative pH, Urine 5.0 - 8.0 5.5 5.5 Protein, Urine Trace, Negative Negative Trace Urobilinogen Negative Negative Negative Nitrites Negative Negative Negative Leukest Negative, 25 Rock/uL Negative Negative WBC, Urine 0-5 /HPF 0-5 /HPF RBC, Urine 0-3 /HPF 0-3 /HPF Epithelial Cells /HPF Few Hemoglobin A1C 4.3 - 5.6 % 7.2 (H) Estimated Average Glucose mg/dL 160 COVID 19 Result See comment Detected (A) CK 51 - 298 U/L 224 MEDICATIONS: Current Outpatient Medications Medication Sig ELIQUIS 5 mg tab(s) Take 1 tablet by mouth twice daily. spironolactone (ALDACTONE) 25 mg tablet Take 1 tablet by mouth once daily. carvedilol (COREG) 25 mg tablet Take 1 tablet by mouth twice daily. senna (SENOKOT) 8.6 mg tab Take 1 tablet by mouth twice daily as needed for constipation. dilTIAZem CD (CARDIZEM CD, CARTIA XT) 120 mg 24 hr capsule Take 1 capsule by mouth once daily. insulin lispro (HUMALOG KWIKPEN INSULIN) 100 unit/mL Inject 22 Units subcutaneously three times daily before meals. Getting through [facility] losartan-hydroCHLOROthiazide (HYZAAR) 100-12.5 mg per tablet Take 1 tablet by mouth once daily. metFORMIN ER (GLUCOPHAGE XR) 500 mg 24 hr tablet Take 2 tablets by mouth twice daily before meals. insulin glargine (BASAGLAR KWIKPEN U-100 INSULIN) 100 unit/mL (3 mL) Inject 90 Units subcutaneously daily at bedtime. simvastatin (ZOCOR) 40 mg tablet Take 1 tablet by mouth daily at bedtime. colestipol (COLESTID) 1 gram tablet Take 1 tablet by mouth once daily. finasteride (PROSCAR) 5 mg tablet flecainide (TAMBOCOR) 150 mg tablet Take 1 tablet by mouth every 12 hours. Prescribed by outside damage cutter aspirin 81 mg chewable tablet Take 81 mg by mouth once daily. insulin needles, DISPOSABLE, (1ST TIER UNIFINE PENTIPS) 31 gauge x 5/16 ndle 1 Each once daily. DX: E11.9 Insulin: Yes Insulin Syringe-Needle U-100 1/2 mL 29 x 1/2 syrg 1 Each once daily. USE ONE SYRINGE FOR EACH DOSE/1PER DAY, (E11.9, Z79.4) Diabetes mellitus type 2, insulin dependent. Lancets (ACCU-CHEK SOFTCLIX LANCETS) lancets Test blood sugar(s) 1 times daily. Dx: 250.00. Insulin: Yes COMPOUNDED PRESCRIPTION 1 Each twice daily. Accucheck compact test strips, dx-NIDDM No current facility-administered medications for this visit. ALLERGIES: (more content not included)...[facility]09-20-2023 History of Present illness Narrative* Jeff Virgen MD - 06/06/2023 10:25 AM EDT Patient presents with: 6 Month Exam HPI: Patient presents today for office visit for follow up. HTN: Patient is compliant with meds Yes Monitors bp at home: No. Denies side effects: Yes. Chest pain: No. Dyspnea: Yes. With exertion Edema: No. Palpitations: No. Syncope: No. Headache: No. Dizziness: No. DM: Reports overall feeling well. Medication side effects: No. Home sugar check frequency/results:does not check very often. Readings are fairly good when he does check. Hypoglycemic spells: No. Watching diet: No. Unexpected weight loss: No. Polyuria, polydipsia: No. Vision Changes: No. Foot lesions or numbness or pain: No. Still seeing Cardiology Still on Eliquis No bleeding risks. Reviewed recent visit with [facility]. His covid had been positive. Doing much better. No fever or chills. No cough. No dizziness. Component Latest Ref Rng & Units 05/18/2023 05/18/2023 05/18/2023 05/18/2023 4:19 PM 4:29 PM 4:37 PM 4:37 PM WBC 3.70 - 11.00 k/uL 12.21 (H) RBC 4.20 - 6.00 m/uL 4.92 Hemoglobin 13.0 - 17.0 g/dL 14.0 Hematocrit 39.0 - 51.0 % 42.8 MCV 80.0 - 100.0 fL 87.0 MCH 26.0 - 34.0 pg 28.5 MCHC 30.5 - 36.0 g/dL 32.7 RDW-CV 11.5 - 15.0 % 13.2 Platelet Count 150 - 400 k/uL 255 MPV 9.0 - 12.7 fL 11.1 NRBC /100 WBC 0.0 Absolute nRBC <0.01 k/uL <0.01 Neut% % 76.7 Abs Neut (ANC) 1.45 - 7.50 k/uL 9.37 (H) Lymph% % 12.1 Abs Lymph 1.00 - 4.00 k/uL 1.48 Comal% % 9.5 Abs Comal <0.87 k/uL 1.16 (H) Eosin% % 1.7 Abs Eosin <0.46 k/uL 0.21 Baso% % 0.0 Abs Baso <0.11 k/uL 0.00 Platelet Estimate Adequate Red Cell Morph Reviewed: see results of individual morphologies Polychromasia Slight Ovalocytes Few DTYPE Manual Protein, Total 6.3 - 8.0 g/dL 7.0 Albumin 3.9 - 4.9 g/dL 4.1 Calcium 8.5 - 10.2 mg/dL 9.0 Bilirubin, Total 0.2 - 1.3 mg/dL 0.3 Alkaline Phosphatase 38 - 113 U/L 70 AST 14 - 40 U/L 23 ALT 10 - 54 U/L 24 Glucose 74 - 99 mg/dL 110 (H) BUN 9 - 24 mg/dL 31 (H) Creatinine 0.73 - 1.22 mg/dL 1.22 Sodium 136 - 144 mmol/L 132 (L) Potassium 3.7 - 5.1 mmol/L 4.3 Chloride 97 - 105 mmol/L 95 (L) CO2 22 - 30 mmol/L 24 Anion Gap 9 - 18 mmol/L 13 eGFR >=60 mL/min/1.73m 60 Color Yellow Light Yellow Light Yellow Clarity Clear Clear Clear Glucose, Urine Trace, Negative Negative Negative Bilirubin, Urine Negative Negative Negative Ketones, Urine Trace, Negative Negative Negative Specific Elizabeth, Ur 1.005 - 1.030 1.022 1.022 Hemoglobin/Blood,Ur Negative, Trace Negative Negative pH, Urine 5.0 - 8.0 5.5 5.5 Protein, Urine Trace, Negative Negative Trace Urobilinogen Negative Negative Negative Nitrites Negative Negative Negative Leukest Negative, 25 Rock/uL Negative Negative WBC, Urine 0-5 /HPF 0-5 /HPF RBC, Urine 0-3 /HPF 0-3 /HPF Epithelial Cells /HPF Few Hemoglobin A1C 4.3 - 5.6 % 7.2 (H) Estimated Average Glucose mg/dL 160 COVID 19 Result See comment Detected (A) CK 51 - 298 U/L 224 MEDICATIONS: Current Outpatient Medications Medication Sig ELIQUIS 5 mg tab(s) Take 1 tablet by mouth twice daily. spironolactone (ALDACTONE) 25 mg tablet Take 1 tablet by mouth once daily. carvedilol (COREG) 25 mg tablet Take 1 tablet by mouth twice daily. senna (SENOKOT) 8.6 mg tab Take 1 tablet by mouth twice daily as needed for constipation. dilTIAZem CD (CARDIZEM CD, CARTIA XT) 120 mg 24 hr capsule Take 1 capsule by mouth once daily. insulin lispro (HUMALOG KWIKPEN INSULIN) 100 unit/mL Inject 22 Units subcutaneously three times daily before meals. Getting through [facility] losartan-hydroCHLOROthiazide (HYZAAR) 100-12.5 mg per tablet Take 1 tablet by mouth once daily. metFORMIN ER (GLUCOPHAGE XR) 500 mg 24 hr tablet Take 2 tablets by mouth twice daily before meals. insulin glargine (BASAGLAR KWIKPEN U-100 INSULIN) 100 unit/mL (3 mL) Inject 90 Units subcutaneouslydaily at bedtime. simvastatin (ZOCOR) 40 mg tablet Take 1 tablet by mouth daily at bedtime. colestipol (COLESTID) 1 gram tablet Take 1 tablet by mouth once daily. finasteride (PROSCAR) 5 mg tablet flecainide (TAMBOCOR) 150 mg tablet Take 1 tablet by mouth every 12 hours. Prescribed by outside damage cutter aspirin 81 mg chewable tablet Take 81 mg by mouth once daily. insulin needles, DISPOSABLE, (1ST TIER UNIFINE PENTIPS) 31 gauge x 5/16 ndle 1 Each once daily. DX: E11.9 Insulin: Yes Insulin Syringe-Needle U-100 1/2 mL 29 x 1/2 syrg 1 Each once daily. USE ONE SYRINGE FOR EACH DOSE/1PER DAY, (E11.9, Z79.4) Diabetes mellitus type 2, insulin dependent. Lancets (ACCU-CHEK SOFTCLIX LANCETS) lancets Test blood sugar(s) 1 times daily. Dx: 250.00. Insulin: Yes COMPOUNDED PRESCRIPTION 1 Each twice daily. Accucheck compact test strips, dx-NIDDM No current facility-administered medications for this visit. 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 Stable for years. Sleep apnea 03/31/2009 Pt declined my recs for testing as of 03-25 PAST SURGICAL HISTORY Procedure Laterality Date COLONOSCOPY FLX DX W/COLLJ SPEC WHEN PFRMD 01/12/2010 Colonoscopy COLSC FLX W/REMOVAL LESION BY HOT BX FORCEPS 04/21/15 CYSTOURETHROSCOPY 02/07/2019 Cystoscopy and cystolitholapaxy and laser of bladder stone with evacuation of stone fragments Dr Daley PAST SURGICAL HISTORY OF RIGHT WRIST SURGERY, had repair of fx RPR UMBILICAL HERNIA < 5 YRS REDUCIBLE Hernia repair, umbilical FAMILY HISTORY Problem Relation Age of Onset Heart Father Hypertension Father Cancer Mother Colon Cancer Sister Cancer Sister Colon Cancer Brother Social History Tobacco Use Smoking status: Former Packs/day: 2.00 Years: 10.00 Additional pack years: 0.00 Total pack years: 20.00 Types: Cigarettes Quit date: 09/17/1980 Years since quittin.7 Smokeless tobacco: Never Vaping Use Vaping Use: Never used Substance Use Topics Alcohol use: No Drug use: No Reviewed current medications, allergies, past medical history, surgical history, family history andsocial history today. REVIEW OF SYSTEMS All other reviewed and negative other than HPI. HEALTH MAINTENANCE: Reviewed health maintenance issues today and recommended the following in detail. Hepatitis B Vaccine(1 of 3 - Risk 3-dose series) Never done Depression Assessment Never done Dilated Retinal Exam -recommended. Influenza Vaccine(1) due on 05/18/2023 Diabetic Foot Exam due on 05/31/2023 VITALS: BP 130/64 Pulse 77 Ht 185.4 cm (6' 1 ) Wt 134.2 kg (295 lb 12.8 oz) SpO2 97% BMI 39.03 kg/m Last 4 Encounter Wt Readings: Date: Wt: 05/18/2023 131 kg (288 lb 12.8 oz) 04/30/2023 132.9 kg (293 lb) 03/05/2023 138.3 kg (304 lb 12.8 oz) 03/02/2023 137.4 kg (303 lb) PHYSICAL EXAMINATION: General appearance: Well appearing, alert, in no acute distress, well-hydrated, well nourished. Skin: Skin color, texture, turgor normal, no suspicious rashes or lesions Head: Normocephalic, no masses, lesions, tenderness or abnormalities Neck: Supple, no adenopathy; thyroid symmetric, normal size, no bruits Lungs: Lungs clear to auscultation. No wheezing, rhonchi, rales Heart: RRR without murmur, gallop, or rubs. No ectopy Abdomen: Normal abdominal exam, Abdomen soft, non-tender. Bowel sounds normal. No masses, organomegaly Extremities: No deformities, edema, skin discoloration, clubbing or cyanosis. Good capillary refill. Feet:Shoes and socks removed, No deformities, ulcers, calluses, normal distal pulses, and sensitiveto 10 gm monofilament ASSESSMENT/PLAN: 1. Essential hypertension - ICD9: 401.9, ICD10: I10 (primary diagnosis) - continue meds. - Continue current medications 2. Encounter for immunization - ICD9: V03.89, ICD10: Z23 - INFLUENZA VACCINE, PRSV FREE, AGE 65+ YR, HIGH DOSE, QUADRIVALENT (FLUZONE HIGH-DOSE) 3. Paroxysmal atrial fibrillation (HCC) - ICD9: 427.31, ICD10: I48.0 - stable. Stay on meds. See [facility] in the winter again. 4. Mixed hyperlipidemia - ICD9: 272.2, ICD10: E78.2 - Controlled - Continue current medications 5. Schizophrenia, chronic condition (HCC) - ICD9: 295.62, ICD10: F20.9 -stable. 6. Chronic anticoagulation - ICD9: V58.61, ICD10: Z79.01 - no issues. 7. Type 2 diabetes mellitus with microalbuminuria, with long-term current use of insulin (HCC) - ICD9: 250.40, 791.0, V58.67, ICD10: E11.29, R80.9, Z79.4 - doing well - CONSULT TO OPHTHALMOLOGY - CBC + DIFF - BASIC METABOLIC PNL - HGB A1C 8. Restrictive lung disease - ICD9: 518.89, ICD10: J98.4 - thought to be due to body habitus. See pulmonary if any worsening dyspnea or cough. Jeff Virgen MD documented in [facility] Miscellaneous Notes* Telephone Encounter - Angelina Bliss RN - 06/04/2023 2:00 PM EDT Daughter Loan returned call and given provider's message below. Angelina Bliss RN * Telephone Encounter - Jaylene Henley LPN - 06/04/2023 11:57 AM EDT Attempted to call and mailbox is full. * Telephone Encounter - Jeff Virgen MD - 06/04/2023 11:29 AM EDT no * Telephone Encounter - Kristina Higuera LPN - 06/04/2023 11:25 AM EDT Pt's daughter is calling about lab for A1C that pt was supposed to get done for 6 month f/u on 06/06. Chart shows lab was done on 05/18 along with other labs. Daughter is asking if pt needs to do anything before appt then on . Please review and advise. Kristina Higuera LPN documented in this encounterW[facility]09-[facility]23 NoteHNO ID: [id number] Author: Osvaldo Travis PA-C Service: ? Author Type: Physician Movie Shot Cameraman Type: Progress Notes Filed: 05/18/2023 5:46 PM Note Text: 78 year old male with c/o having URI sx over last 2 days with nausea, cough, nasal, and chest congestion. Nauseated, no vomiting. Did eat some today, chicken salad sandwich. No fever but didn't check. While mowing yesterday felt weak, dizzy, got off tractor and collapsed, not unconscious. Hollered for help and finally a neighbor came over to help. Refused to go to ER. No chest pain but SOB. Daughter checked BP later which was 110/65, blood sugar was 157. Had eaten before mowed, Biscuit and gravy from [employer]. Feels better today, but not quite right. More nauseated. 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 Stable for years. Sleep apnea 03/31/2009 Pt declined my recs for testing as of 03-25 PAST SURGICAL HISTORY Procedure Laterality Date COLONOSCOPY FLX DX W/COLLJ SPEC WHEN PFRMD 01/12/2010 Colonoscopy COLSC FLX W/REMOVAL LESION BY HOT BX FORCEPS 04/21/15 CYSTOURETHROSCOPY 02/07/2019 Cystoscopy and cystolitholapaxy and laser of bladder stone with evacuation of stone fragments Dr Daley PAST SURGICAL HISTORY OF RIGHT WRIST SURGERY, had repair of fx RPR UMBILICAL HERNIA < 5 YRS REDUCIBLE Hernia repair, umbilical Social History Tobacco Use Smoking status: Former Packs/day: 2.00 Years: 10.00 Additional pack years: 0.00 Total pack years: 20.00 Types: Cigarettes Quit date: 09/17/1980 Years since quittin.6 Smokeless tobacco: Never Vaping Use Vaping Use: Never used Substance Use Topics Alcohol use: No Drug use: No ACTIVE PROBLEM LIST Other Psoriasis Essential Hypertension Obesity, Unspecified 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) Pure Hypercholesterolemia Intervertebral Lumbar Disc Disorder With Myelopathy, Lumbar Region Sleep Apnea Blind One Eye Low Hdl (Under 40) Tubular Adenoma of Colon Schizophrenia, Chronic Condition (Hcc) Obesity, Class II, Bmi 35-39.9 Paroxysmal Atrial Fibrillation (Hcc) Chronic Anticoagulation Current Outpatient Medications Medication Sig Dispense Refill ELIQUIS 5 mg tab(s) Take 1 tablet by mouth twice daily. 28 tablet 0 spironolactone (ALDACTONE) 25 mg tablet Take 1 tablet by mouth once daily. 90 tablet 1 carvedilol (COREG) 25 mg tablet Take 1 tablet by mouth twice daily. 180 tablet 1 senna (SENOKOT) 8.6 mg tab Take 1 tablet by mouth twice daily as needed for constipation. 12 tablet 0 famotidine (PEPCID) 20 mg tablet Take 1 tablet by mouth twice daily. 60 tablet 2 dilTIAZem CD (CARDIZEM CD, CARTIA XT) 120 mg 24 hr capsule Take 1 capsule by mouth once daily. 90 capsule 3 insulin lispro (HUMALOG KWIKPEN INSULIN) 100 unit/mL Inject 22 Units subcutaneously three times daily before meals. Getting through [facility] 5 Each 1 losartan-hydroCHLOROthiazide (HYZAAR) 100-12.5 mg per tablet Take 1 tablet by mouth once daily. 90 tablet 1 metFORMIN ER (GLUCOPHAGE XR) 500 mg 24 hr tablet Take 2 tablets by mouth twice daily before meals. 360 tablet 3 insulin glargine (BASAGLAR KWIKPEN U-100 INSULIN) 100 unit/mL (3 mL) Inject 90 Units subcutaneously daily at bedtime. 15 mL 3 simvastatin (ZOCOR) 40 mg tablet Take 1 tablet by mouth daily at bedtime. 90 tablet 3 colestipol (COLESTID) 1 gram tablet Take 1 tablet by mouth once daily. 90 tablet 3 finasteride (PROSCAR) 5 mg tablet flecainide (TAMBOCOR) 150 mg tablet Take 1 tablet by mouth every 12 hours. Prescribed by outside damage cutter aspirin 81 mg chewable tablet Take 81 mg by mouth once daily. insulin needles, DISPOSABLE, (1ST TIER UNIFINE PENTIPS) 31 gauge x 5/16 ndle 1 Each once daily. DX: E11.9 Insulin: Yes 100 Each 11 Insulin Syringe-Needle U-100 1/2 mL 29 x 1/2 syrg 1 Each once daily. USE ONE SYRINGE FOR EACH DOSE/1PER DAY, (E11.9, Z79.4) Diabetes mellitus type 2, insulin dependent. 50 Syringe 11 Lancets (ACCU-CHEK SOFTCLIX LANCETS) lancets Test blood sugar(s) 1 times daily. Dx: 250.00. Insulin: Yes 100 Each 3 COMPOUNDED PRESCRIPTION 1 Each twice daily. Accucheck compact test strips, dx-NIDDM 6 Units 11 No current facility-administered medications for this visit. DEPRESSION ASSESSMENT Never done DILATED RETINAL EXAM due on 10/18/2022 INFLUENZA(1) due on 05/18/2023 DIABETIC FOOT EXAM due on 05/31/2023 EXAM: BP 104/64 Pulse 72 Temp 36.2 ?C (97.1 ?F) Ht 185.4 cm (6' (more content not included)...[facility]09-01-2023 Instructions* Patient Instructions* Osvaldo Travis PA-C - 05/18/2023 4:12 PM EDT Please push fluids with water, non-caffeinated and non-alcoholic beverages, 6-8 glasses today. If you feel weak, faint, or have chest pain, call 911 and have the squad take you to ER. Try to stay cool for the next few days and rest. documented in this encounterW[facility] History of Present illness Narrative* Osvaldo Travis PA-C - 05/18/2023 3:11 PM EDT 78 year old male with c/o having URI sx over last 2 days with nausea, cough, nasal, and chest congestion. Nauseated, no vomiting. Did eat some today, chicken salad sandwich. No fever but didn't check. While mowing yesterday felt weak, dizzy, got off tractor and collapsed, not unconscious. Hollered for help and finally a neighbor came over to help. Refused to go to ER. No chest pain but SOB. Daughter checked BP later which was 110/65, blood sugar was 157. Had eaten before mowed, Biscuit and gravy from [employer]. Feels better today, but not quite right. More nauseated. 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 Stable for years. Sleep apnea 03/31/2009 Pt declined my recs for testing as of 03-25 PAST SURGICAL HISTORY Procedure Laterality Date COLONOSCOPY FLX DX W/COLLJ SPEC WHEN PFRMD 01/12/2010 Colonoscopy COLSC FLX W/REMOVAL LESION BY HOT BX FORCEPS 04/21/15 CYSTOURETHROSCOPY 02/07/2019 Cystoscopy and cystolitholapaxy and laser of bladder stone with evacuation of stone fragments Dr Daley PAST SURGICAL HISTORY OF RIGHT WRIST SURGERY, had repair of fx RPR UMBILICAL HERNIA < 5 YRS REDUCIBLE Hernia repair, umbilical Social History Tobacco Use Smoking status: Former Packs/day: 2.00 Years: 10.00 Additional pack years: 0.00 Total pack years: 20.00 Types: Cigarettes Quit date: 09/17/1980 Years since quittin.6 Smokeless tobacco: Never Vaping Use Vaping Use: Never used Substance Use Topics Alcohol use: No Drug use: No ACTIVE PROBLEM LIST Other Psoriasis Essential Hypertension Obesity, Unspecified 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) Pure Hypercholesterolemia Intervertebral Lumbar Disc Disorder With Myelopathy, Lumbar Region Sleep Apnea Blind One Eye Low Hdl (Under 40) Tubular Adenoma of Colon Schizophrenia, Chronic Condition (Hcc) Obesity, Class II, Bmi 35-39.9 Paroxysmal Atrial Fibrillation (Hcc) Chronic Anticoagulation Current Outpatient Medications Medication Sig Dispense Refill ELIQUIS 5 mg tab(s) Take 1 tablet by mouth twice daily. 28 tablet 0 spironolactone (ALDACTONE) 25 mg tablet Take 1 tablet by mouth once daily. 90 tablet 1 carvedilol (COREG) 25 mg tablet Take 1 tablet by mouth twice daily. 180 tablet 1 senna (SENOKOT) 8.6 mg tab Take 1 tablet by mouth twice daily as needed for constipation. 12 tablet0 famotidine (PEPCID) 20 mg tablet Take 1 tablet by mouth twice daily. 60 tablet 2 dilTIAZem CD (CARDIZEM CD, CARTIA XT) 120 mg 24 hr capsule Take 1 capsule by mouth once daily. 90 capsule 3 insulin lispro (HUMALOG KWIKPEN INSULIN) 100 unit/mL Inject 22 Units subcutaneously three times daily before meals. Getting through [employer] Cares 5 Each 1 losartan-hydroCHLOROthiazide (HYZAAR) 100-12.5 mg per tablet Take 1 tablet by mouth once daily. 90 tablet 1 metFORMIN ER (GLUCOPHAGE XR) 500 mg 24 hr tablet Take 2 tablets by mouth twice daily before meals. 360 tablet 3 insulin glargine (BASAGLAR KWIKPEN U-100 INSULIN) 100 unit/mL (3 mL) Inject 90 Units subcutaneouslydaily at bedtime. 15 mL 3 simvastatin (ZOCOR) 40 mg tablet Take 1 tablet by mouth daily at bedtime. 90 tablet 3 colestipol (COLESTID) 1 gram tablet Take 1 tablet by mouth once daily. 90 tablet 3 finasteride (PROSCAR) 5 mg tablet flecainide (TAMBOCOR) 150 mg tablet Take 1 tablet by mouth every 12 hours. Prescribed by outside damage cutter aspirin 81 mg chewable tablet Take 81 mg by mouth once daily. insulin needles, DISPOSABLE, (1ST TIER UNIFINE PENTIPS) 31 gauge x 5/16 ndle 1 Each once daily. DX: E11.9 Insulin: Yes 100 Each 11 Insulin Syringe-Needle U-100 1/2 mL 29 x 1/2 syrg 1 Each once daily. USE ONE SYRINGE FOR EACH DOSE/1PER DAY, (E11.9, Z79.4) Diabetes mellitus type 2, insulin dependent. 50 Syringe 11 Lancets (ACCU-CHEK SOFTCLIX LANCETS) lancets Test blood sugar(s) 1 times daily. Dx: 250.00. Insulin: Yes 100 Each 3 COMPOUNDED PRESCRIPTION 1 Each twice daily. Accucheck compact test strips, dx- NIDDM 6 Units 11 No current facility-administered medications for this visit. DEPRESSION ASSESSMENT Never done DILATED RETINAL EXAM due on 10/18/2022 INFLUENZA(1) due on 05/18/2023 DIABETIC FOOT EXAM due on 05/31/2023 EXAM: BP 104/64 Pulse 72 Temp 36.2 C (97.1 F) Ht 185.4 cm (6' 1 ) Wt 131 kg (288 lb 12.8 oz) SpO2 96% BMI 38.10 kg/m Pleasant obese adult man in no acute distress. Alert and oriented all spheres. Normal affect and cognition. Speech normal. No deficits to learning or comprehension. Skin warm, dry, pink to lips and nailbeds. Normal turgor. Respirations regular and unlabored. HEENT: NCAT. No scleral icterus or conjunctival injection. TM's clear. Nose and oropharynx free from injection or lesion. Oral membranes moist and pink. No cervical lymph nodes. Thyroid non-tender, no masses, or enlargement. Carotids pulses 2+/4+ without bruits. No JVD with HOB at 30 degrees. Chest is normal shape. Lungs are clear to all henderson with good air exchange through out. HRRR without murmur or gallop. No lifts, heaves, or rubs. Abdomen: active bowel sounds throughout, soft, nontender, no masses or organomegaly. No CVAT. Extrem: no clubbing or cyanosis. Edema: none. Extremities are warm and pink with prompt capillary refill. Neuro: Cranial nerves II through XII are grossly intact. Has no evidence of pronator drift. No focal weakness upper or lower extremities. DTRs are blunted upper and lower, 0-1+, symmetric. Patient isable to walk on tiptoes and heels, shallow squat without difficulty. Does have some slight gait insecurity with turning on standing from a chair. Negative Romberg. No past-pointing, normal [id number]. Seems stiff which I think is affecting his gait. EKG demonstrates normal sinus rhythm with first-degree AV block with DC of 222 MS, otherwise metrics are normal. 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 There is no change from prior EKG 03/01/2023 online under [facility]: I was able to download and will have it scanned. ASSESSMENT/PLAN: 1. Near syncope - ICD9: 780.2, ICD10: R55 (primary diagnosis) Improved today - CBC + DIFF - COMP METABOLIC PANEL - URINALYSIS, DIPSTICK ONLY - ECG COMPLETE - CK CREATINE KINASE Unable to void in office. 2. Fall, initial encounter - ICD9: E888.9, ICD10: W19.XXXA Near syncope, weakness. - ECG COMPLETE 3. Acute upper respiratory infection - ICD9: 465.9, ICD10: J06.9 - Discussed viral etiology and rationale for treatment. - Symptomatic treatment with prn analgesia - Supportive care with fluids and rest - COVID NAAT, ROUTINE Patient is advised in the future if he is this week and particularly if he has falls should be seenin the emergency department to make sure there is been no cardiovascular event or cerebrovascular event. Strongly urged to push fluids of all kinds 6 to 8 glasses a day. Follow-up with any persistent symptoms. Patient states he will not be able to urinate here today despite drinking 4 to 5 glasses of water. He is going to the lab to have his blood work drawn and we will try there. Osvaldo Travis PA-C documented in this encounterWright[facility]08-30-2023 Miscellaneous Notes* Telephone Encounter - Jeff Virgen MD - 05/16/2023 2:25 PM EDT We have not filled his proscar here. Very current dose. * Telephone Encounter - Gin Khan - 05/16/2023 1:41 PM EDT Pt needs to get a short term dose of Eliquis 5 mg. He is out of the medication currently. His daughter is waiting for approved to get it at a discount cost but wanted some sent to the pharmacy until that got approved. Patient has been identified by name and date of : Yes Last office visit in this department: 05/01/2023 RX INSTRUCTIONS: Patient aware RX will be sent to pharmacy. No need to notify patient. Patient phones requesting refills as follows: Requested Prescriptions Pending Prescriptions Disp Refills finasteride (PROSCAR) 5 mg tablet ELIQUIS 5 mg tab(s) 28 tablet 0 Sig: Take 1 tablet by mouth twice daily. Please review and advise. Gin Khan documented in this encounterWright-[facility]08-25-2023 Miscellaneous Notes* Telephone Encounter - Jaylene Henley LPN - 05/11/2023 3:48 PM EDT Forms completed and faxed. * Telephone Encounter - Jaylene Henley LPN - 05/11/2023 3:08 PM EDT Type of form: Prescription Assistance Form received via walk in When form is completed, Fax form to [phone] Form has been forwarded to Physician Desk: Dr. Marilynn Henley LPN documented in this encounterWright-[facility]08-15-2023 NoteHNO ID: [id number] Author: Osvaldo Travsi PA-C Service: ? Author Type: Physician Movie Shot Cameraman Type: Progress Notes Filed: 05/01/2023 3:28 PM Note Text: Here to review bleeding area from largest skin tag removal yesterday. No areas bleeding on exam. Instructed if bleeding, hold pressure solidly for 5 minutes and recheck. BP 118/70 Pulse 80 Temp 36.6 ?C (97.9 ?F) (Left Tympanic) Resp 20 SpO2 96% [facility] History of Present illness Narrative* Osvaldo Travis PA-C - 05/01/2023 3:24 PM EDT Here to review bleeding area from largest skin tag removal yesterday. No areas bleeding on exam. Instructed if bleeding, hold pressure solidly for 5 minutes and recheck. BP 118/70 Pulse 80 Temp 36.6 C (97.9 F) (Left Tympanic) Resp 20 SpO2 96% Osvaldo Travis PA-C documented in this encounterWright-[facility]08-14-2023 NoteHNO ID: [id number] Author: Osvaldo Travis PA-C Service: ? Author Type: Physician Movie Shot Cameraman Type: Progress Notes Filed: 04/30/2023 8:18 PM Note Text: 78 year old male with c/o skin tag removal: multiple tags, worse one in groin area. Has multiple in axillae and groin bilaterallly. Also asking for lesion on right upper back be removed. Lesions are irritating, get caught on clothes or rubbed and then bleed or itch. 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 Stable for years. Sleep apnea 03/31/2009 Pt declined my recs for testing as of 03-25 PAST SURGICAL HISTORY Procedure Laterality Date COLONOSCOPY FLX DX W/COLLJ SPEC WHEN PFRMD 01/12/2010 Colonoscopy COLSC FLX W/REMOVAL LESION BY HOT BX FORCEPS 04/21/15 CYSTOURETHROSCOPY 02/07/2019 Cystoscopy and cystolitholapaxy and laser of bladder stone with evacuation of stone fragments Dr Daley PAST SURGICAL HISTORY OF RIGHT WRIST SURGERY, had repair of fx RPR UMBILICAL HERNIA < 5 YRS REDUCIBLE Hernia repair, umbilical Social History Tobacco Use Smoking status: Former Packs/day: 2.00 Years: 10.00 Additional pack years: 0.00 Total pack years: 20.00 Types: Cigarettes Quit date: 09/17/1980 Years since quittin.6 Smokeless tobacco: Never Vaping Use Vaping Use: Never used Substance Use Topics Alcohol use: No Drug use: No ACTIVE PROBLEM LIST Other Psoriasis Essential Hypertension Obesity, Unspecified 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 90 tablet 1 carvedilol (COREG) 25 mg tablet Take 1 tablet by mouth twice daily. 180 tablet 1 senna (SENOKOT) 8.6 mg tab Take 1 tablet by mouth twice daily as needed for constipation. 12 tablet 0 famotidine (PEPCID) 20 mg tablet Take 1 tablet by mouth twice daily. 60 tablet 2 dilTIAZem CD (CARDIZEM CD, CARTIA XT) 120 mg 24 hr capsule Take 1 capsule by mouth once daily. 90 capsule 3 insulin lispro (HUMALOG KWIKPEN INSULIN) 100 unit/mL Inject 22 Units subcutaneously three times daily before meals. Getting through [employer] Cares 5 Each 1 ELIQUIS 5 mg tab(s) Take 1 tablet by mouth twice daily. 180 tablet 3 losartan-hydroCHLOROthiazide (HYZAAR) 100-12.5 mg per tablet Take 1 tablet by mouth once daily. 90 tablet 1 metFORMIN ER (GLUCOPHAGE XR) 500 mg 24 hr tablet Take 2 tablets by mouth twice daily before meals. 360 tablet 3 insulin glargine (BASAGLAR KWIKPEN U-100 INSULIN) 100 unit/mL (3 mL) Inject 90 Units subcutaneously daily at bedtime. 15 mL 3 simvastatin (ZOCOR) 40 mg tablet Take 1 tablet by mouth daily at bedtime. 90 tablet 3 colestipol (COLESTID) 1 gram tablet Take 1 tablet by mouth once daily. 90 tablet 3 finasteride (PROSCAR) 5 mg tablet flecainide (TAMBOCOR) 150 mg tablet Take 1 tablet by mouth every 12 hours. Prescribed by outside damage cutter aspirin 81 mg chewable tablet Take 81 mg by mouth once daily. insulin needles, DISPOSABLE, (1ST TIER UNIFINE PENTIPS) 31 gauge x 5/16 ndle 1 Each once daily. DX: E11.9 Insulin: Yes 100 Each 11 Insulin Syringe-Needle U-100 1/2 mL 29 x 1/2 syrg 1 Each once daily. USE ONE SYRINGE FOR EACH DOSE/1PER DAY, (E11.9, Z79.4) Diabetes mellitus type 2, insulin dependent. 50 Syringe 11 Lancets (ACCU-CHEK SOFTCLIX LANCETS) lancets Test blood sugar(s) 1 times daily. Dx: 250.00. Insulin: Yes 100 Each 3 COMPOUNDED PRESCRIPTION 1 Each twice daily. Accucheck compact test strips, dx-NIDDM 6 Units 11 No current facility-administered medications for this visit. COVID-19 VACCINE(1) Never done DTAP,TDAP,TD(1 - Tdap) Never done SHINGRIX VACCINE(1 of 2) Never done ADVANCE DIRECTIVE DISCUSSION due on 09/17/2022 DEPRESSION ASSESSMENT Never done DILATED RETINAL EXAM due on 10/18/2022 EXAM: BP 114/68 Pulse 75 Resp 18 Wt 132.9 kg (293 lb) SpO2 95% BMI 38.66 kg/m? Pleasant obese older man in no acute distress. Alert and oriented all spheres. Normal affect and cognition. Speech normal. No deficits to learning or comprehension. Skin warm, dry, pink to lips and nailbe (more content not included)...[facility]08-14-[facility] Instructions* Patient Instructions* Osvaldo Travis PA-C - 04/30/2023 3:11 PM EDT Report any unusual symptoms. Area frozen: Areas should blister and peel over several days. Anticipate tenderness over treated areas. Using a corn pad or callus pad to alleviate pressure may help. If areas are draining, cover with Bacitracin ointment OTC and a dry sterile dressing. Usually areaswill not drain. If any unusual symptoms such as fever, pus, red streaks or signs of infections, call the office. Otherwise, recheck in three weeks. documented in this encounterW[facility]08-14-2023 History of Present illness Narrative* Osvaldo Travis PA-C - 04/30/2023 2:00 PM EDT 78 year old male with c/o skin tag removal: multiple tags, worse one in groin area. Has multiple in axillae and groin bilaterallly. Also asking for lesion on right upper back be removed. Lesions are irritating, get caught on clothes or rubbed and then bleed or itch. 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 Stable for years. Sleep apnea 03/31/2009 Pt declined my recs for testing as of 03-25 PAST SURGICAL HISTORY Procedure Laterality Date COLONOSCOPY FLX DX W/COLLJ SPEC WHEN PFRMD 01/12/2010 Colonoscopy COLSC FLX W/REMOVAL LESION BY HOT BX FORCEPS 04/21/15 CYSTOURETHROSCOPY 02/07/2019 Cystoscopy and cystolitholapaxy and laser of bladder stone with evacuation of stone fragments Dr Daley PAST SURGICAL HISTORY OF RIGHT WRIST SURGERY, had repair of fx RPR UMBILICAL HERNIA < 5 YRS REDUCIBLE Hernia repair, umbilical Social History Tobacco Use Smoking status: Former Packs/day: 2.00 Years: 10.00 Additional pack years: 0.00 Total pack years: 20.00 Types: Cigarettes Quit date: 09/17/1980 Years since quittin.6 Smokeless tobacco: Never Vaping Use Vaping Use: Never used Substance Use Topics Alcohol use: No Drug use: No ACTIVE PROBLEM LIST Other Psoriasis Essential Hypertension Obesity, Unspecified 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 90 tablet 1 carvedilol (COREG) 25 mg tablet Take 1 tablet by mouth twice daily. 180 tablet 1 senna (SENOKOT) 8.6 mg tab Take 1 tablet by mouth twice daily as needed for constipation. 12 tablet0 famotidine (PEPCID) 20 mg tablet Take 1 tablet by mouth twice daily. 60 tablet 2 dilTIAZem CD (CARDIZEM CD, CARTIA XT) 120 mg 24 hr capsule Take 1 capsule by mouth once daily. 90 capsule 3 insulin lispro (HUMALOG KWIKPEN INSULIN) 100 unit/mL Inject 22 Units subcutaneously three times daily before meals. Getting through [employer] [facility] 5 Each 1 ELIQUIS 5 mg tab(s) Take 1 tablet by mouth twice daily. 180 tablet 3 losartan-hydroCHLOROthiazide (HYZAAR) 100-12.5 mg per tablet Take 1 tablet by mouth once daily. 90 tablet 1 metFORMIN ER (GLUCOPHAGE XR) 500 mg 24 hr tablet Take 2 tablets by mouth twice daily before meals. 360 tablet 3 insulin glargine (BASAGLAR KWIKPEN U-100 INSULIN) 100 unit/mL (3 mL) Inject 90 Units subcutaneouslydaily at bedtime. 15 mL 3 simvastatin (ZOCOR) 40 mg tablet Take 1 tablet by mouth daily at bedtime. 90 tablet 3 colestipol (COLESTID) 1 gram tablet Take 1 tablet by mouth once daily. 90 tablet 3 finasteride (PROSCAR) 5 mg tablet flecainide (TAMBOCOR) 150 mg tablet Take 1 tablet by mouth every 12 hours. Prescribed by outside damage cutter aspirin 81 mg chewable tablet Take 81 mg by mouth once daily. insulin needles, DISPOSABLE, (1ST TIER UNIFINE PENTIPS) 31 gauge x 5/16 ndle 1 Each once daily. DX: E11.9 Insulin: Yes 100 Each 11 Insulin Syringe-Needle U-100 1/2 mL 29 x 1/2 syrg 1 Each once daily. USE ONE SYRINGE FOR EACH DOSE/1PER DAY, (E11.9, Z79.4) Diabetes mellitus type 2, insulin dependent. 50 Syringe 11 Lancets (ACCU-CHEK SOFTCLIX LANCETS) lancets Test blood sugar(s) 1 times daily. Dx: 250.00. Insulin: Yes 100 Each 3 COMPOUNDED PRESCRIPTION 1 Each twice daily. Accucheck compact test strips, dx- NIDDM 6 Units 11 No current facility-administered medications for this visit. COVID-19 VACCINE(1) Never done DTAP,TDAP,TD(1 - Tdap) Never done SHINGRIX VACCINE(1 of 2) Never done ADVANCE DIRECTIVE DISCUSSION due on 09/17/2022 DEPRESSION ASSESSMENT Never done DILATED RETINAL EXAM due on 10/18/2022 EXAM: BP 114/68 Pulse 75 Resp 18 Wt 132.9 kg (293 lb) SpO2 95% BMI 38.66 kg/m Pleasant obese older man in no acute distress. Alert and oriented all spheres. Normal affect and cognition. Speech normal. No deficits to learning or comprehension. Skin warm, dry, pink to lips and nailbeds. Normal turgor.multiple acrochordons in bilateral axilla and left groin, varying sizes and stalks. 1.5 x 1.6 x 0.5cm dark brown SK which is mild red on one edge Respirations regular and unlabored. Chest is normal shape. Lungs are clear to all henderson with good air exchange through out. HRRR without murmur or gallop. No lifts, heaves, or rubs. Extrem: no clubbing or cyanosis. Extremities are warm and pink with prompt capillary refill. UNIVERSAL PROTOCOL / SAFETY CHECKLIST Procedure to be Performed: removal and/ or cryo for above achrocordons, large SK on right upper back Sign In: A Moment of CARE was completed. Personnel directly involved with the procedure wore the appropriate PPE (Personal Protective Equipment). Patient/Surrogate Stated/Verified: PATIENT VERIFIED(optional for EMERGENT procedures): Patient name, Date of , Relevant allergies, and The intended procedure Time Out Communication: Intended patient and procedure match the source documents. Consent documented and matches the intended procedure. Sign Out: SIGN OUT (optional for EMERGENT procedures): No specimen collected. Osvaldo Travis PA-C PROCEDURE NOTE: Procedure explained in detail with review of cryotherapy Some of this note may have been copied and pasted for the purpose of history context and comparison. Areas prepped with Chlorprep bilateral axilla and left groin. Larger acrochordons were anesthestized with Xylocaine with Epi 1%, a total of 5mL 29 acrochordons removed with electric cautery SK on back treated with cryotherapy 15 sec x 2 ASSESSMENT/PLAN: 1. Inflamed acrochordon - ICD9: 701.9, 686.9, ICD10: L91.8 (primary diagnosis) Keep areas clean and dry Bandaids applied to a few lesions still bleeding. 2. Seborrheic keratoses, inflamed - ICD9: 702.11, ICD10: L82.0 Educated on expectation of bullous formation, possible purplish hue, anticipated discomfort, and eventual sloughing. He expressed understanding. 50 minute appointment Osvaldo Travis PA-C documented in this encounterWright-[facility]07-28-2023 Miscellaneous Notes* Telephone Encounter - Shaye Schafer OCCA - 04/13/2023 9:30 AM EDT Patient has been identified by name and date of : Yes Patient phones for refill(s): Requested Prescriptions Pending Prescriptions Disp Refills spironolactone (ALDACTONE) 25 mg tablet 90 tablet 1 Sig: Take 1 tablet by mouth once daily. Date of last office visit in primary care: ALFA 03/02/23 NOV 06/06/23 Last 2 Encounter Wt Readings: Date: Wt: 03/05/2023 138.3 kg (304 lb 12.8 oz) 03/02/2023 137.4 kg (303 lb) Please advise. Thank you. MANDI Santos documented in this encounterWright-Pat[facility]07-06-2023 Miscellaneous Notes* Telephone Encounter - Denisha Shepard APRN.CNP - 03/22/2023 12:48 PM EDT This encounter was opened in error. documented in this encounterWright-Patterson [facility]06-19-[facility]23 NoteHNO ID: [id number] Author: Andrew Guallpa APRN.CAESAR Service: ? Author Type: Nurse Practitioner Type: Progress Notes Filed: 03/05/2023 3:50 PM Note Text: Subjective HPI Nontoxic-appearing male presents urgent care chief complaint constipation issues. Duration of symptoms 5 days. Associated symptoms inability to have a soft bowel movement. Patient states has had issues with constipation of the last 5 days. Presents today for evaluation. Has not tried any OTC medications. Denies any abdominal pain or leaking of stool. No pain with bowel movements. No blood in bowel movements. No nausea or vomiting. Denies any fevers headaches body aches chills cough sore throat. Past medical history prescription medication use allergies reviewed. 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 Stable for years. Sleep apnea 03/31/2009 Pt declined my recs for testing as of 03-25 PAST SURGICAL HISTORY Procedure Laterality Date COLONOSCOPY FLX DX W/COLLJ SPEC WHEN PFRMD 01/12/2010 Colonoscopy COLSC FLX W/REMOVAL LESION BY HOT BX FORCEPS 04/21/15 CYSTOURETHROSCOPY 02/07/2019 Cystoscopy and cystolitholapaxy and laser of bladder stone with evacuation of stone fragments Dr Daley PAST SURGICAL HISTORY OF RIGHT WRIST SURGERY, had repair of fx RPR UMBILICAL HERNIA < 5 YRS REDUCIBLE Hernia repair, umbilical ALLERGIES Amoxicillin MEDICATIONS famotidine (PEPCID) 20 mg tablet Take 1 tablet by mouth twice daily. dilTIAZem CD (CARDIZEM CD, CARTIA XT) 120 mg 24 hr capsule Take 1 capsule by mouth once daily. insulin lispro (HUMALOG KWIKPEN INSULIN) 100 unit/mL Inject 22 Units subcutaneously three times daily before meals. Getting through [facility] ELIQUIS 5 mg tab(s) Take 1 tablet by mouth twice daily. losartan-hydroCHLOROthiazide (HYZAAR) 100-12.5 mg per tablet Take 1 tablet by mouth once daily. spironolactone (ALDACTONE) 25 mg tablet Take 1 tablet by mouth once daily. carvedilol (COREG) 25 mg tablet Take 1 tablet by mouth twice daily. metFORMIN ER (GLUCOPHAGE XR) 500 mg 24 hr tablet Take 2 tablets by mouth twice daily before meals. insulin glargine (BASAGLAR KWIKPEN U-100 INSULIN) 100 unit/mL (3 mL) Inject 90 Units subcutaneously daily at bedtime. simvastatin (ZOCOR) 40 mg tablet Take 1 tablet by mouth daily at bedtime. colestipol (COLESTID) 1 gram tablet Take 1 tablet by mouth once daily. finasteride (PROSCAR) 5 mg tablet flecainide (TAMBOCOR) 150 mg tablet Take 1 tablet by mouth every 12 hours. Prescribed by outside damage cutter aspirin 81 mg chewable tablet Take 81 mg by mouth once daily. insulin needles, DISPOSABLE, (1ST TIER UNIFINE PENTIPS) 31 gauge x 5/16 ndle 1 Each once daily. DX: E11.9 Insulin: Yes Insulin Syringe-Needle U-100 1/2 mL 29 x 1/2 syrg 1 Each once daily. USE ONE SYRINGE FOR EACH DOSE/1PER DAY, (E11.9, Z79.4) Diabetes mellitus type 2, insulin dependent. Lancets (ACCU-CHEK SOFTCLIX LANCETS) lancets Test blood sugar(s) 1 times daily. Dx: 250.00. Insulin: Yes COMPOUNDED PRESCRIPTION 1 Each twice daily. Accucheck compact test strips, dx-NIDDM FAMILY HISTORY Problem Relation Age of Onset Heart Father Hypertension Father Cancer Mother Colon Cancer Sister Cancer Sister Colon Cancer Brother Social History Tobacco Use Smoking status: Former Packs/day: 2.00 Years: 10.00 Pack years: 20.00 Types: Cigarettes Quit date: 09/17/1980 Years since quittin.4 Smokeless tobacco: Never Vaping Use Vaping Use: Never used Substance Use Topics Alcohol use: No Drug use: No BP 120/62 Pulse 82 Temp 36.3 ?C (97.3 ?F) Resp 20 Wt (!) 138.3 kg (304 lb 12.8 oz) SpO2 94% BMI 40.21 kg/m? Review of Systems Constitutional: Negative for chills, fever and malaise/fatigue. HENT: Negative for congestion, ear discharge, ear pain, sinus pain and sore throat. Eyes: Negative for blurred vision, pain, discharge and redness. Respiratory: Negative for cough, hemoptysis, sputum production, shortness of breath, wheezing and stridor. Cardiovascular: Negative for chest pain. Gastrointestinal: Positive for constipation. Negative for abdominal pain, blood in stool, diarrhea, melena, nausea and vomiting. Musculoskeletal: Negative for myalgias. Skin: Negative for itching and rash. Neurological: Negative for dizziness and headaches. Objective Physical Exam Constitutional: General: He is not in acute distress. Appearance: He is not diaphoretic. HENT: Head: Normocephalic. Mouth/Throat: Mouth: Mucous membranes are moist. Pharynx: Oropharynx is clear. No oropharyngeal exuda (more content not included)...[facility]06-19-2023 Instructions* Patient Instructions* Andrewdeirdre Guallpa APRN.[facility] - 03/05/2023 3:37 PM EDT Constipation Constipation can be an unpleasant topic to talk about. Most people have experienced constipation atsome point in their life. Though typically not serious, constipation can be both painful and frustrating. What is constipation? Constipation occurs when bowel movements become difficult or less frequent than normal. The frequency or time between bowel movements ranges widely from person to person. Some people have bowel movements several times a day while others only one to two times a week. Going longer than three days without a bowel movement is too long. After three days, the stool becomes harder and more difficult to pass. What causes constipation? Constipation is most commonly caused by inadequate fiber in the diet or a disruption of the regulardiet or routine. Chronic constipation may be due to a poor diet, dehydration, certain medications (such as antidepressants, strong pain medications), stress, or the pressure of other activities that force you to ignore the urge to empty the bowel. Various medical conditions can also cause or aggravate constipation. Some of the more common medical conditions that cause constipation include endocrine problems, such as decreased function of the thyroid gland or diabetes. Colorectal cancer is another medical condition that can cause constipationbut it usually also accompanied by other symptoms including blood in the stool and weight loss. Common causes of constipation include the following: A diet low in fiber Not drinking enough water Lack of exercise Travel or another change in routine Eating large amounts of milk or cheese Stress or resisting the urge to have a bowel movement Medications strong pain medicines such as narcotics antidepressants antacids containing calcium or aluminum such as TUMS iron pills allergy medications such as antihistamines certain blood pressure medicines psychiatric medications herbal supplements Irritable bowel syndrome (IBS) Neurologic disorders including spinal cord injury and multiple sclerosis (MS) Slow transit of the colon How is constipation evaluated? Most people do not need extensive testing to evaluate constipation. Only a small number of patientswith constipation have a serious underlying medical problem (such as poor function of the thyroid gland, diabetes, or colorectal cancer). If you have constipation that has persisted for more than two weeks, you should see a doctor to determine if you need further evaluation. For a patient who has colorectal cancer, early detection and treatment may be life-saving. Standard evaluation for constipation includes performing blood tests and examining the colon by colonoscopy, particularly for patients older than 50 years.. Other tests include colonic transit studies (time it takes for stools to move through the colon) and anal manometry (measures pressure and muscle function in the rectum and anus). Most patients with serious constipation, and without any obvious illness to explain their symptoms,suffer from one of two problems: Colonic inertia (also called lazy colon): a condition in which the colon contracts poorly and retains stool. This can be determined by colon transit studies. Obstructed defecation: a condition in which the colon contracts normally, but the patient is unableto expel stool from the rectum. This condition can be confirmed by a test called anal manometry. How can I prevent constipation? Eat a well-balanced diet with plenty of fiber. Good sources of fiber are fruits, vegetables, legumes, and whole-grain breads and cereals. Fiber and water help the colon pass stool. Most of the fiber in fruits is found in the skins, such as in apples. Fruits with seeds you can eat, like strawberries, have the most fiber. Bran is a great source of fiber: eat bran cereal or add bran cereal to other foods, like soup and yogurt. Drink eight 8-ounce glasses of water a day. (Note: Milk can cause constipation in some people.) Liquids that contain caffeine, such as coffee and soft drinks, have a dehydrating effect and may need to be avoided until your bowel habits return to normal. Exercise regularly. Move your bowels when you feel the urge. How is constipation treated? Drink two to four extra glasses of water a day. Try warm liquids, especially in the morning. Add fruits and vegetables to your diet. Eat prunes and/or bran cereal. Add supplemental fiber to your diet (there are several types, such as Metamucil, Citrucel, and Benefiber). If needed, use a very mild stool softener or laxative (such as colace [docusate] or Milk of Magnesia). Do not use laxatives for more than two weeks without calling your health care provider, as laxative overuse can aggravate your symptoms. When should I call my health care provider? Call your health care provider if: Constipation is a new problem for you. You have blood in your stool. You are losing weight unintentionally. You have severe pain with bowel movements. Your constipation has lasted more than three weeks. Where can I learn more? National Digestive Diseases Information Clearinghouse2 Information [place], [place] [address] www.digestive.niddk.nih.gov email: References: National Digestive Diseases Information Clearinghouse. Constipation. digestive.niddk.nih.gov Accessed June 21, 2012. [employer]. Understanding Constipation. www.gastro.org. Accessed June 21, 2012. Copyright 0848-9336 The [facility]. All rights reserved This information is provided by the [facility] and is not intended to replace the medical advice of your doctor or health care provider. Please consult your health care provider for advice about a specific medical condition. For additional health information, please contact the Center for Consumer Health Information at the [facility] or toll-free extension [phone]. If you prefer, you may visit [email or web address] or [email or web address]. This document was last reviewed on: 2012 index #[id number] documented in this encounterWright-Patterson [facility]06-19-2023 History of Present illness Narrative* Andrew Guallpa APRN.CNP - 03/05/2023 3:28 PM EDT Subjective HPI Nontoxic-appearing male presents urgent care chief complaint constipation issues. Duration of symptoms 5 days. Associated symptoms inability to have a soft bowel movement. Patient states has had issues with constipation of the last 5 days. Presents today for evaluation. Has not tried any OTC medications. Denies any abdominal pain or leaking of stool. No pain with bowel movements. No blood in bowel movements. No nausea or vomiting. Denies any fevers headaches body aches chills cough sore throat.Past medical history prescription medication use allergies reviewed. 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 Stable for years. Sleep apnea 03/31/2009 Pt declined my recs for testing as of 03-25 PAST SURGICAL HISTORY Procedure Laterality Date COLONOSCOPY FLX DX W/COLLJ SPEC WHEN PFRMD 01/12/2010 Colonoscopy COLSC FLX W/REMOVAL LESION BY HOT BX FORCEPS 04/21/15 CYSTOURETHROSCOPY 02/07/2019 Cystoscopy and cystolitholapaxy and laser of bladder stone with evacuation of stone fragments Dr Daley PAST SURGICAL HISTORY OF RIGHT WRIST SURGERY, had repair of fx RPR UMBILICAL HERNIA < 5 YRS REDUCIBLE Hernia repair, umbilical ALLERGIES Amoxicillin MEDICATIONS famotidine (PEPCID) 20 mg tablet Take 1 tablet by mouth twice daily. dilTIAZem CD (CARDIZEM CD, CARTIA XT) 120 mg 24 hr capsule Take 1 capsule by mouth once daily. insulin lispro (HUMALOG KWIKPEN INSULIN) 100 unit/mL Inject 22 Units subcutaneously three times daily before meals. Getting through [facility] ELI[facility]IS 5 mg tab(s) Take 1 tablet by mouth twice daily. losartan-hydroCHLOROthiazide (HYZAAR) 100-12.5 mg per tablet Take 1 tablet by mouth once daily. spironolactone (ALDACTONE) 25 mg tablet Take 1 tablet by mouth once daily. carvedilol (COREG) 25 mg tablet Take 1 tablet by mouth twice daily. metFORMIN ER (GLUCOPHAGE XR) 500 mg 24 hr tablet Take 2 tablets by mouth twice daily before meals. insulin glargine (BASAGLAR KWIKPEN U-100 INSULIN) 100 unit/mL (3 mL) Inject 90 Units subcutaneouslydaily at bedtime. simvastatin (ZOCOR) 40 mg tablet Take 1 tablet by mouth daily at bedtime. colestipol (COLESTID) 1 gram tablet Take 1 tablet by mouth once daily. finasteride (PROSCAR) 5 mg tablet flecainide (TAMBOCOR) 150 mg tablet Take 1 tablet by mouth every 12 hours. Prescribed by outside damage cutter aspirin 81 mg chewable tablet Take 81 mg by mouth once daily. insulin needles, DISPOSABLE, (1ST TIER UNIFINE PENTIPS) 31 gauge x 5/16 ndle 1 Each once daily. DX: E11.9 Insulin: Yes Insulin Syringe-Needle U-100 1/2 mL 29 x 1/2 syrg 1 Each once daily. USE ONE SYRINGE FOR EACH DOSE/1PER DAY, (E11.9, Z79.4) Diabetes mellitus type 2, insulin dependent. Lancets (ACCU-CHEK SOFTCLIX LANCETS) lancets Test blood sugar(s) 1 times daily. Dx: 250.00. Insulin: Yes COMPOUNDED PRESCRIPTION 1 Each twice daily. Accucheck compact test strips, dx-NIDDM FAMILY HISTORY Problem Relation Age of Onset Heart Father Hypertension Father Cancer Mother Colon Cancer Sister Cancer Sister Colon Cancer Brother Social History Tobacco Use Smoking status: Former Packs/day: 2.00 Years: 10.00 Pack years: 20.00 Types: Cigarettes Quit date: 09/17/1980 Years since quittin.4 Smokeless tobacco: Never Vaping Use Vaping Use: Never used Substance Use Topics Alcohol use: No Drug use: No BP 120/62 Pulse 82 Temp 36.3 C (97.3 F) Resp 20 Wt (!) 138.3 kg (304 lb 12.8 oz) SpO2 94% BMI 40.21 kg/m Review of Systems Constitutional: Negative for chills, fever and malaise/fatigue. HENT: Negative for congestion, ear discharge, ear pain, sinus pain and sore throat. Eyes: Negative for blurred vision, pain, discharge and redness. Respiratory: Negative for cough, hemoptysis, sputum production, shortness of breath, wheezing and stridor. Cardiovascular: Negative for chest pain. Gastrointestinal: Positive for constipation. Negative for abdominal pain, blood in stool, diarrhea,melena, nausea and vomiting. Musculoskeletal: Negative for myalgias. Skin: Negative for itching and rash. Neurological: Negative for dizziness and headaches. Objective Physical Exam Constitutional: General: He is not in acute distress. Appearance: He is not diaphoretic. HENT: Head: Normocephalic. Mouth/Throat: Mouth: Mucous membranes are moist. Pharynx: Oropharynx is clear. No oropharyngeal exudate or posterior oropharyngeal erythema. Eyes: Conjunctiva/sclera: Conjunctivae normal. Pupils: Pupils are equal, round, and reactive to light. Cardiovascular: Rate and Rhythm: Normal rate and regular rhythm. Heart sounds: Normal heart sounds. Pulmonary: Effort: Pulmonary effort is normal. No tachypnea, accessory muscle usage or respiratory distress. Breath sounds: Normal breath sounds. No stridor. No wheezing, rhonchi or rales. Abdominal: Palpations: Abdomen is soft. Tenderness: There is no abdominal tenderness. There is no right CVA tenderness, left CVA tenderness, guarding or rebound. Musculoskeletal: Cervical back: Normal range of motion and neck supple. No rigidity or tenderness. Lymphadenopathy: Cervical: No cervical adenopathy. Skin: General: Skin is warm and dry. Neurological: Mental Status: He is alert and oriented to person, place, and time. ASSESSMENT/PLAN: 1. Acute constipation - ICD9: 564.00, ICD10: K59.00 Patient diagnosed with acute constipation. No nausea vomiting or leaking of stool. No abdominal pain. We will treat conservatively at this time. Increase oral fluids and movement. Use OTC stool softener medications if no successful use Senokot. Red flags prompt reevaluation discussed. Patient was educated on supportive therapies. Patient will follow up with primary care provider as needed. Patient was instructed to immediately proceed to emergency room for any new, worsening, or symptoms lasting longer than anticipated. The patient's clinical presentation is otherwise unremarkable at this time. Based on exam and clinical finding, the patient is stable for discharge. Plan of care was discusse d with patient. Patient verbalizes understanding and agrees to plan of care. This note was generated using [employer] software. It may contain errors in wording, punctuation, or spelling. Andrew Guallpa APRN.CAESAR documented in this encounterWright-Patterson [facility] Center06-16-2023 NoteHNO ID: [id number] Author: Jeff Virgen MD Service: ? Author Type: Physician Type: Progress Notes Filed: 03/02/2023 5:07 PM Note Text: Patient presents with: ED Follow-up HPI: Patient presents today for office visit for ER follow up. HOSPITAL/ER FOLLOW UP: Reason for visit: 02/26/23 hypoglycemia (40) 03/01/23 abd pain and nausea Which facility: [facility] Diagnosis: mild dehydration, abd pain Testing done: CT abd/pelvis Treatment given: zofran Current symptoms: nausea but is improved, glucose is running high now today was 296 Denies any unusual shortness of breath, cough, fever. CT was negative other than circumferential bladder wall thickening. White count minimally up and renal function slightly down they felt due to dehydration. Lipase was very minimally up but ct was negative for pancreas issues. Has seen Dr Daley for urinary retention and bph He was seen the first time for a hypoglycemic episode. Squad gave him an amp of D50. They had thought he may have given himself short acting insulin before bed rather than long acting. Patient said it was possible. Had been a little nauseated and his appetite dropped. Currently: he is feeling better but he is taking zofran. Nausea medicine is making it better but still has some No vomiting. No fever. No diarrhea, constipation. No bloody or black stools. No one around him is ill. No hematuria. No dysuria. No frequency. No prostate pain. No cough. No shortness of breath. No med adjustments recently or med changes. No current abd pain. No chest pain. Drinking fluids well. No heartburn. No etoh. No saids. MEDICATIONS: Current Outpatient Medications Medication Sig dilTIAZem CD (CARDIZEM CD, CARTIA XT) 120 mg 24 hr capsule Take 1 capsule by mouth once daily. insulin lispro (HUMALOG KWIKPEN INSULIN) 100 unit/mL Inject 22 Units subcutaneously three times daily before meals. Getting through [facility] ELIQUIS 5 mg tab(s) Take 1 tablet by mouth twice daily. losartan-hydroCHLOROthiazide (HYZAAR) 100-12.5 mg per tablet Take 1 tablet by mouth once daily. spironolactone (ALDACTONE) 25 mg tablet Take 1 tablet by mouth once daily. carvedilol (COREG) 25 mg tablet Take 1 tablet by mouth twice daily. metFORMIN ER (GLUCOPHAGE XR) 500 mg 24 hr tablet Take 2 tablets by mouth twice daily before meals. insulin glargine (BASAGLAR KWIKPEN U-100 INSULIN) 100 unit/mL (3 mL) Inject 90 Units subcutaneously daily at bedtime. simvastatin (ZOCOR) 40 mg tablet Take 1 tablet by mouth daily at bedtime. colestipol (COLESTID) 1 gram tablet Take 1 tablet by mouth once daily. finasteride (PROSCAR) 5 mg tablet flecainide (TAMBOCOR) 150 mg tablet Take 1 tablet by mouth every 12 hours. Prescribed by outside damage cutter aspirin 81 mg chewable tablet Take 81 mg by mouth once daily. insulin needles, DISPOSABLE, (1ST TIER UNIFINE PENTIPS) 31 gauge x 5/16 ndle 1 Each once daily. DX: E11.9 Insulin: Yes Insulin Syringe-Needle U-100 1/2 mL 29 x 1/2 syrg 1 Each once daily. USE ONE SYRINGE FOR EACH DOSE/1PER DAY, (E11.9, Z79.4) Diabetes mellitus type 2, insulin dependent. Lancets (ACCU-CHEK SOFTCLIX LANCETS) lancets Test blood sugar(s) 1 times daily. Dx: 250.00. Insulin: Yes COMPOUNDED PRESCRIPTION 1 Each twice daily. Accucheck compact test strips, dx-NIDDM No current facility-administered medications for this visit. 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 Stable for years. Sleep apnea 03/31/2009 Pt declined my recs for testing as of 03-25 PAST SURGICAL HISTORY Procedure Laterality Date COLONOSCOPY FLX DX W/COLLJ SPEC WHEN PFRMD 01/12/2010 Colonoscopy COLSC FLX W/REMOVAL LESION BY HOT BX FORCEPS 04/21/15 CYSTOURETHROSCOPY 02/07/2019 Cystoscopy and cystolitholapaxy and laser of bladder stone with evacuation of stone fragments Dr Daley PAST SURGICAL HISTORY OF RIGHT WRIST SURGERY, had repair of fx RPR UMBILICAL HERNIA < 5 YRS REDUCIBLE Hernia repair, umbilical FAMILY HISTORY Problem Relation Age of Onset Heart Father Hypertension Father Cancer Mother Colon Cancer Sister Cancer Sister Colon Cancer Brother Social History Tobacco Use Smoking status: Former Packs/day: 2.00 Years: 10.00 Pack years: 20.00 Types: Cigarettes Quit date: 09/17/1980 Years since quittin.4 Smokeless tobacco: Never Vaping Use Vaping Use: Never used Substance Use Topics Alcohol use: No Drug use: No Reviewed current medications, allergies, past medical history, surgical history, family history and social history tod (more content not included)... [facility]06-16-2023 History of Present illness Narrative* Jeff Virgen MD - 03/02/2023 4:21 PM EDT Patient presents with: ED Follow-up HPI: Patient presents today for office visit for ER follow up. HOSPITAL/ER FOLLOW UP: Reason for visit: 02/26/23 hypoglycemia (40) 03/01/23 abd pain and nausea Which facility: [facility] Diagnosis: mild dehydration, abd pain Testing done: CT abd/pelvis Treatment given: zofran Current symptoms: nausea but is improved, glucose is running high now today was 296 Denies any unusual shortness of breath, cough, fever. CT was negative other than circumferential bladder wall thickening. White count minimally up and renal function slightly down they felt due to dehydration. Lipase was very minimally up but ct was negative for pancreas issues. Has seen Dr Daley for urinary retention and bph He was seen the first time for a hypoglycemic episode. Squad gave him an amp of D50. They had thought he may have given himself short acting insulin before bed rather than long acting.Patient said it was possible. Had been a little nauseated and his appetite dropped. Currently: he is feeling better but he is taking zofran. Nausea medicine is making it better but still has some No vomiting. No fever. No diarrhea, constipation. No bloody or black stools. No one around him is ill. No hematuria. No dysuria. No frequency. No prostate pain. No cough. No shortness of breath. No med adjustments recently or med changes. No current abd pain. No chest pain. Drinking fluids well. No heartburn. No etoh. No saids. MEDICATIONS: Current Outpatient Medications Medication Sig dilTIAZem CD (CARDIZEM CD, CARTIA XT) 120 mg 24 hr capsule Take 1 capsule by mouth once daily. insulin lispro (HUMALOG KWIKPEN INSULIN) 100 unit/mL Inject 22 Units subcutaneously three times daily before meals. Getting through [facility] ELI[facility]IS 5 mg tab(s) Take 1 tablet by mouth twice daily. losartan-hydroCHLOROthiazide (HYZAAR) 100-12.5 mg per tablet Take 1 tablet by mouth once daily. spironolactone (ALDACTONE) 25 mg tablet Take 1 tablet by mouth once daily. carvedilol (COREG) 25 mg tablet Take 1 tablet by mouth twice daily. metFORMIN ER (GLUCOPHAGE XR) 500 mg 24 hr tablet Take 2 tablets by mouth twice daily before meals. insulin glargine (BASAGLAR KWIKPEN U-100 INSULIN) 100 unit/mL (3 mL) Inject 90 Units subcutaneouslydaily at bedtime. simvastatin (ZOCOR) 40 mg tablet Take 1 tablet by mouth daily at bedtime. colestipol (COLESTID) 1 gram tablet Take 1 tablet by mouth once daily. finasteride (PROSCAR) 5 mg tablet flecainide (TAMBOCOR) 150 mg tablet Take 1 tablet by mouth every 12 hours. Prescribed by outside damage cutter aspirin 81 mg chewable tablet Take 81 mg by mouth once daily. insulin needles, DISPOSABLE, (1ST TIER UNIFINE PENTIPS) 31 gauge x 5/16 ndle 1 Each once daily. DX: E11.9 Insulin: Yes Insulin Syringe-Needle U-100 1/2 mL 29 x 1/2 syrg 1 Each once daily. USE ONE SYRINGE FOR EACH DOSE/1PER DAY, (E11.9, Z79.4) Diabetes mellitus type 2, insulin dependent. Lancets (ACCU-CHEK SOFTCLIX LANCETS) lancets Test blood sugar(s) 1 times daily. Dx: 250.00. Insulin: Yes COMPOUNDED PRESCRIPTION 1 Each twice daily. Accucheck compact test strips, dx-NIDDM No current facility-administered medications for this visit. 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 Stable for years. Sleep apnea 03/31/2009 Pt declined my recs for testing as of 03-25 PAST SURGICAL HISTORY Procedure Laterality Date COLONOSCOPY FLX DX W/COLLJ SPEC WHEN PFRMD 01/12/2010 Colonoscopy COLSC FLX W/REMOVAL LESION BY HOT BX FORCEPS 04/21/15 CYSTOURETHROSCOPY 02/07/2019 Cystoscopy and cystolitholapaxy and laser of bladder stone with evacuation of stone fragments Dr Daley PAST SURGICAL HISTORY OF RIGHT WRIST SURGERY, had repair of fx RPR UMBILICAL HERNIA < 5 YRS REDUCIBLE Hernia repair, umbilical FAMILY HISTORY Problem Relation Age of Onset Heart Father Hypertension Father Cancer Mother Colon Cancer Sister Cancer Sister Colon Cancer Brother Social History Tobacco Use Smoking status: Former Packs/day: 2.00 Years: 10.00 Pack years: 20.00 Types: Cigarettes Quit date: 09/17/1980 Years since quittin.4 Smokeless tobacco: Never Vaping Use Vaping Use: Never used Substance Use Topics Alcohol use: No Drug use: No Reviewed current medications, allergies, past medical history, surgical history, family history andsocial history today. REVIEW OF SYSTEMS All other reviewed and negative other than HPI. VITALS: BP 112/60 Pulse 76 Wt (!) 137.4 kg (303 lb) SpO2 93% BMI 39.98 kg/m Last 4 Encounter Wt Readings: Date: Wt: 01/23/2023 137.3 kg (302 lb 9.6 oz) 01/19/2023 137.4 kg (303 lb) 11/29/2022 137.9 kg (304 lb) 05/31/2022 136.1 kg (300 lb) PHYSICAL EXAMINATION: General appearance: Well appearing, alert, in no acute distress, well-hydrated, well nourished. Skin: Skin color, texture, turgor normal, no suspicious rashes or lesions Head: Normocephalic, no masses, lesions, tenderness or abnormalities Back: no cva tenderness. Lungs: Lungs clear to auscultation. No wheezing, rhonchi, rales Heart: RRR without murmur, gallop, or rubs. No ectopy Abdomen: Normal abdominal exam, Abdomen soft, non-tender. Bowel sounds normal. No masses, organomegaly Extremities: No deformities, edema, skin discoloration, clubbing or cyanosis. Good capillary refill. ASSESSMENT/PLAN: 1. Nausea - ICD9: 787.02, ICD10: R11.0 (primary diagnosis) - rule out gastritis or viral syndrome. Abd pain is better. Monitor intake. Red flags for re-assessment reviewed with patient in detail. - add pepcid. Follow up when I am back in town in 2 weeks or sooner prn. - CBC + DIFF - COMP METABOLIC PANEL - FAMOTIDINE 20 MG TABLET 2. Hypoglycemia - ICD9: 251.2, ICD10: E16.2 - monitor use of his insulin. Call if any issues. 3. Type 2 diabetes mellitus with microalbuminuria, with long-term current use of insulin (HCC) - ICD9: 250.40, 791.0, V58.67, ICD10: E11.29, R80.9, Z79.4 - has been o 4. Leukocytosis, unspecified type - ICD9: 288.60, ICD10: D72.829 - recheck labs. - CBC + DIFF 5. Abnormal serum level of lipase - ICD9: 790.5, ICD10: R74.8 - recheck labs. - LIPASE BLD 6. Benign prostatic hyperplasia with lower urinary tract symptoms, symptom details unspecified - ICD9: 600.01, ICD10: N40.1 - due to see his urologist anyway, his issues are likely what his thickened bladder wall is from - CONSULT TO UROLOGY 7. Urinary retention - ICD9: 788.20, ICD10: R33.9 - CONSULT TO UROLOGY Jeff Virgen MD documented in this encounterW[facility] Miscellaneous Notes* Telephone Encounter - Tammy Davies LPN - 02/22/2023 9:26 AM EDT Patient daughter Loan calling father can not get Diltiazem rx refilled the rx had been cancelled at the pharmacy. He has none left to take for his dose this morning. Computer shows rx had been cancelled, and Cartia XT showing on medication list. Daughter questioning he is to continue taking daily?If so will need new rx to [facility] pharmacy. Please advise documented in this encounterWright-Patterson [facility]06-02-2023 NoteHNO ID: [id number] Author: RT Margarita(R) Service: ? Author Type: Respiratory Care Program Director Type: Progress Notes Filed: 02/16/2023 3:30 PM Note Text: Radiology Service Progress Note PATIENT NAME: Faisal Alarcon DATE OF SERVICE: February 16, 2023 TIME: 3:18 PM PATIENT IDENTITY VERIFICATION COMPLETED USING TWO (2) IDENTIFIERS: Name and Date of confirmed by patient verbally. FALL SCREENING: Has the patient had 2 falls in the last year or 1 fall with injury or currently using an Ambulatory Assistive Device (Walker, Cane, Wheelchair, Crutches, etc.)? Yes, Patient High Risk for Falls What interventions were put in place to prevent falls during this visit? Instructed Patient to Remain Seated (Not on Exam Table) Until Exam PATIENT GENDER DATA: Male PATIENT RELEVANT IMPLANT DATA REVIEWED: Yes RADIOLOGY DEPARTMENT: General X-ray: Exam(s) Completed: Lower Extremity X-Ray(s): Ankle, Left PERIPHERAL IV DATA: Not applicable SIGNED BY: RT Margarita(R) February 16, 2023 3:18 [facility]06-02-2023 NoteHNO ID: [id number] Author: Denisha Shepard APRN.MANAGER OF APPLICATIONS DEVELOPMENT Service: ? Author Type: Nurse Practitioner Type: Progress Notes Filed: 02/16/2023 6:03 PM Note Text: This is a 77 year old male who presents today with: Patient presents with: Ankle Pain: L ankle pain- started yesterday; no known injury HISTORY OF PRESENT ILLNESS: Faisal Alarcon is a 77 year old male. Patient presents with: Ankle Pain: L ankle pain- started yesterday; no known injury Pt presents today with complaint of left ankle pain. Refers that it started yesterday. No known injury. Refers that it is on the medial aspect of the left ankle. Started when he was trying to raise from a seated position. Getting up is painful -- when he has to get to a standing position. Able to bear weight, but is uncomfortable, but not as painful as actually going through the motion of standing. Currently is aching . Never goes away. Hasn't taken anything for the pain. 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 Stable for years. Sleep apnea 03/31/2009 Pt declined my recs for testing as of 03-25 PAST SURGICAL HISTORY Procedure Laterality Date COLONOSCOPY FLX DX W/COLLJ SPEC WHEN PFRMD 01/12/2010 Colonoscopy COLSC FLX W/REMOVAL LESION BY HOT BX FORCEPS 04/21/15 CYSTOURETHROSCOPY 02/07/2019 Cystoscopy and cystolitholapaxy and laser of bladder stone with evacuation of stone fragments Dr Daley PAST SURGICAL HISTORY OF RIGHT WRIST SURGERY, had repair of fx RPR UMBILICAL HERNIA < 5 YRS REDUCIBLE Hernia repair, umbilical ALLERGIES Amoxicillin MEDICATIONS Current Outpatient Medications Medication Sig dilTIAZem CD (CARDIZEM CD, CARTIA XT) 120 mg 24 hr capsule insulin lispro (HUMALOG KWIKPEN INSULIN) 100 unit/mL Inject 22 Units subcutaneously three times daily before meals. Getting through [facility] ELIQUIS 5 mg tab(s) Take 1 tablet by mouth twice daily. losartan-hydroCHLOROthiazide (HYZAAR) 100-12.5 mg per tablet Take 1 tablet by mouth once daily. spironolactone (ALDACTONE) 25 mg tablet Take 1 tablet by mouth once daily. carvedilol (COREG) 25 mg tablet Take 1 tablet by mouth twice daily. metFORMIN ER (GLUCOPHAGE XR) 500 mg 24 hr tablet Take 2 tablets by mouth twice daily before meals. insulin glargine (BASAGLAR KWIKPEN U-100 INSULIN) 100 unit/mL (3 mL) Inject 90 Units subcutaneously daily at bedtime. simvastatin (ZOCOR) 40 mg tablet Take 1 tablet by mouth daily at bedtime. colestipol (COLESTID) 1 gram tablet Take 1 tablet by mouth once daily. finasteride (PROSCAR) 5 mg tablet flecainide (TAMBOCOR) 150 mg tablet Take 1 tablet by mouth every 12 hours. Prescribed by outside damage cutter aspirin 81 mg chewable tablet Take 81 mg by mouth once daily. insulin needles, DISPOSABLE, (1ST TIER UNIFINE PENTIPS) 31 gauge x 5/16 ndle 1 Each once daily. DX: E11.9 Insulin: Yes Insulin Syringe-Needle U-100 1/2 mL 29 x 1/2 syrg 1 Each once daily. USE ONE SYRINGE FOR EACH DOSE/1PER DAY, (E11.9, Z79.4) Diabetes mellitus type 2, insulin dependent. Lancets (ACCU-CHEK SOFTCLIX LANCETS) lancets Test blood sugar(s) 1 times daily. Dx: 250.00. Insulin: Yes COMPOUNDED PRESCRIPTION 1 Each twice daily. Accucheck compact test strips, dx-NIDDM No current facility-administered medications for this visit. FAMILY HISTORY Problem Relation Age of Onset Heart Father Hypertension Father Cancer Mother Colon Cancer Sister Cancer Sister Colon Cancer Brother Social History Tobacco Use Smoking status: Former Packs/day: 2.00 Years: 10.00 Pack years: 20.00 Types: Cigarettes Quit date: 09/17/1980 Years since quittin.4 Smokeless tobacco: Never Vaping Use Vaping Use: Never used Substance Use Topics Alcohol use: No Drug use: No EXAM: BP 142/80 Pulse 82 Resp 16 SpO2 94% PHYSICAL EXAM: General Appearance: Well appearing, alert, in no acute distress, well-hydrated, well nourished.. Skin: Skin color, texture, turgor normal, no suspicious rashes or lesions. Head: Normocephalic, no masses, lesions, tenderness or abnormalities. Eyes: Anicteric sclera. Extraocular movements are intact. . Extremities: No deformities, mild swelling of the LLE. No skin discoloration, clubbing or cyanosis. Good capillary refill. Mild tenderness to the the area below the medial malleolus. ROM intact, but with some discomfort with flexion and eversion/inversion. ASSESSMENT/PLAN: 1. Acute left ankle pain - ICD9: 719.47, ICD10: M25.572 Will get xray to r/o any fx. Suspect sprain. Discussed RICE. Discussed exercises for ROM. Tylenol as needed for pain. - XR ANKLE GENERAL 3V AP/LA (more content not included)...[facility]06-02-2023 Miscellaneous Notes* Telephone Encounter - Janet King Ma - 02/16/2023 4:16 PM EDT Patient was made aware of the results. Patient verbalizes understanding. Janet King Ma * Telephone Encounter - Denisha Shepard APRN.MANAGER OF APPLICATIONS DEVELOPMENT - 02/16/2023 3:54 PM EDT Can please let patient/daughter know that his xrays were reviewed by the radiologist and there wereno fractures seen in the ankle. There are some arthritic changes in the ankle and this could be a flare of that as well. However, with where the discomfort was located, I suspect moreso of an inflamed ligament or sprain. Please continue with our current plan with the compression, ice, and elevation. If the symptoms are persisting, then the xray should be repeated in 10-14 days. documented in this encounterWright[facility]06-02-2023 Instructions* Patient Instructions* Denisha Shepard APRN.CNP - 02/16/2023 3:08 PM EDT Tim wrap. Rest Ice Prop the foot. Tylenol as needed. documented in this encounterWright-[facility]06-02-2023 History of Present illness Narrative* Denisha Shepard APRN.CNP - 02/16/2023 2:43 PM EDT This is a 77 year old male who presents today with: Patient presents with: Ankle Pain: L ankle pain- started yesterday; no known injury HISTORY OF PRESENT ILLNESS: Faisal Alarcon is a 77 year old male. Patient presents with: Ankle Pain: L ankle pain- started yesterday; no known injury Pt presents today with complaint of left ankle pain. Refers that it started yesterday. No known injury. Refers that it is on the medial aspect of the left ankle. Started when he was trying to raise from a seated position. Getting up is painful -- when he has to get to a standing position. Able to bear weight, but is uncomfortable, but not as painful as actually going through the motion of standing. Currently is aching . Never goes away. Hasn't taken anything for the pain. 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 Stable for years. Sleep apnea 03/31/2009 Pt declined my recs for testing as of 03-25 PAST SURGICAL HISTORY Procedure Laterality Date COLONOSCOPY FLX DX W/COLLJ SPEC WHEN PFRMD 01/12/2010 Colonoscopy COLSC FLX W/REMOVAL LESION BY HOT BX FORCEPS 04/21/15 CYSTOURETHROSCOPY 02/07/2019 Cystoscopy and cystolitholapaxy and laser of bladder stone with evacuation of stone fragments Dr Daley PAST SURGICAL HISTORY OF RIGHT WRIST SURGERY, had repair of fx RPR UMBILICAL HERNIA < 5 YRS REDUCIBLE Hernia repair, umbilical ALLERGIES Amoxicillin MEDICATIONS Current Outpatient Medications Medication Sig dilTIAZem CD (CARDIZEM CD, CARTIA XT) 120 mg 24 hr capsule insulin lispro (HUMALOG KWIKPEN INSULIN) 100 unit/mL Inject 22 Units subcutaneously three times daily before meals. Getting through [facility] ELIQUIS 5 mg tab(s) Take 1 tablet by mouth twice daily. losartan-hydroCHLOROthiazide (HYZAAR) 100-12.5 mg per tablet Take 1 tablet by mouth once daily. spironolactone (ALDACTONE) 25 mg tablet Take 1 tablet by mouth once daily. carvedilol (COREG) 25 mg tablet Take 1 tablet by mouth twice daily. metFORMIN ER (GLUCOPHAGE XR) 500 mg 24 hr tablet Take 2 tablets by mouth twice daily before meals. insulin glargine (BASAGLAR KWIKPEN U-100 INSULIN) 100 unit/mL (3 mL) Inject 90 Units subcutaneouslydaily at bedtime. simvastatin (ZOCOR) 40 mg tablet Take 1 tablet by mouth daily at bedtime. colestipol (COLESTID) 1 gram tablet Take 1 tablet by mouth once daily. finasteride (PROSCAR) 5 mg tablet flecainide (TAMBOCOR) 150 mg tablet Take 1 tablet by mouth every 12 hours. Prescribed by outside damage cutter aspirin 81 mg chewable tablet Take 81 mg by mouth once daily. insulin needles, DISPOSABLE, (1ST TIER UNIFINE PENTIPS) 31 gauge x 5/16 ndle 1 Each once daily. DX: E11.9 Insulin: Yes Insulin Syringe-Needle U-100 1/2 mL 29 x 1/2 syrg 1 Each once daily. USE ONE SYRINGE FOR EACH DOSE/1PER DAY, (E11.9, Z79.4) Diabetes mellitus type 2, insulin dependent. Lancets (ACCU-CHEK SOFTCLIX LANCETS) lancets Test blood sugar(s) 1 times daily. Dx: 250.00. Insulin: Yes COMPOUNDED PRESCRIPTION 1 Each twice daily. Accucheck compact test strips, dx-NIDDM No current facility-administered medications for this visit. FAMILY HISTORY Problem Relation Age of Onset Heart Father Hypertension Father Cancer Mother Colon Cancer Sister Cancer Sister Colon Cancer Brother Social History Tobacco Use Smoking status: Former Packs/day: 2.00 Years: 10.00 Pack years: 20.00 Types: Cigarettes Quit date: 09/17/1980 Years since quittin.4 Smokeless tobacco: Never Vaping Use Vaping Use: Never used Substance Use Topics Alcohol use: No Drug use: No EXAM: BP 142/80 Pulse 82 Resp 16 SpO2 94% PHYSICAL EXAM: General Appearance: Well appearing, alert, in no acute distress, well-hydrated, well nourished.. Skin: Skin color, texture, turgor normal, no suspicious rashes or lesions. Head: Normocephalic, no masses, lesions, tenderness or abnormalities. Eyes: Anicteric sclera. Extraocular movements are intact. . Extremities: No deformities, mild swelling of the LLE. No skin discoloration, clubbing or cyanosis.Good capillary refill. Mild tenderness to the the area below the medial malleolus. ROM intact, but with some discomfort with flexion and eversion/inversion. ASSESSMENT/PLAN: 1. Acute left ankle pain - ICD9: 719.47, ICD10: M25.572 Will get xray to r/o any fx. Suspect sprain. Discussed RICE. Discussed exercises for ROM. Tylenol as needed for pain. - XR ANKLE GENERAL 3V AP/LAT/OBL LEFT Discussed treatment plan and patient voices understanding. Patient's questions answered appropriately. Medications and potential side effects were discussed and patient voices understanding. Return to the office as scheduled or as needed for worsening/no improvement. Denisha Shepard APRN.MANAGER OF APPLICATIONS DEVELOPMENT The patient indicates understanding of these issues and agrees with the plan. documented in this encounterWright[facility]05-31-2023 Nurse Note* Michelle Jara RN - 02/14/2023 10:05 AM EDT Faisal is here for a suture removal from his chest wall excision. The wound is clean, dry and intact with two sutures. The edges of the wound are well approximated and pink in color. Sutures were removed without difficulty and steri-strips were placed. Patient and were instructed on wound care, both voiced understanding. Pathology was reviewed with CASIMIRO Sands and reported to patient as a benign cyst. Patient tolerated the procedure well. Michelle Jara RN documented in this encounterWright-[facility]05-23-2023 NoteHNO ID: [id number] Author: Fito Rivera MD Service: ? Author Type: Physician Type: Progress Notes Filed: 02/10/2023 11:05 AM Note Text: Preoperative diagnosis: 2 cm subcutaneous lesion to anterior chest Postoperative diagnosis: The same Procedure: Excision of a 2 cm subcutaneous lesion to anterior chest Surgeon: Vanessa Procedure: Anterior chest sterilely prepped draped in usual fashion 1% lidocaine plain was injected. 2-1/2 cm incision was made. Dissection was carried down. Cystic lesion was removed in its entirety. I brought the wound together with deep dermal stitches of 3-0 Vicryl. 2 interrupted sutures of 4-0 nylon on the skin. Sterile dressings were applied and the patient tolerated the procedure well.[facility]05-[facility] Note HNO ID: [id number] Author: Fito Rivera MD Service: ? Author Type: Physician Type: Progress Notes Filed: 01/23/2023 3:08 PM Note Text: HISTORY AND PHYSICAL Faisal Alarcon 1945 REFERRING PHYSICIAN: Jeff Virgen MD CHIEF COMPLAINT: Consult (Chest mass) HPI: The patient is a 77 year old male with a complaint of subcutaneous lesion on his center chest. Is been gradually increasing in size its never been infected.. The patient is being seen by me today at the request of Dr. Jeff Virgen MD for my opinion and advice regarding Skin mass Lesion of subcutaneous tissue (primary encounter diagnosis). 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 Stable for years. Sleep apnea 03/31/2009 Pt declined my recs for testing as of 03-25 PAST SURGICAL HISTORY Procedure Laterality Date COLONOSCOPY FLX DX W/COLLJ SPEC WHEN PFRMD 01/12/2010 Colonoscopy COLSC FLX W/REMOVAL LESION BY HOT BX FORCEPS 04/21/15 CYSTOURETHROSCOPY 02/07/2019 Cystoscopy and cystolitholapaxy and laser of bladder stone with evacuation of stone fragments Dr Daley PAST SURGICAL HISTORY OF RIGHT WRIST SURGERY, had repair of fx RPR UMBILICAL HERNIA < 5 YRS REDUCIBLE Hernia repair, umbilical Current Outpatient Medications Medication Sig dilTIAZem CD (CARDIZEM CD, CARTIA XT) 120 mg 24 hr capsule insulin lispro (HUMALOG KWIKPEN INSULIN) 100 unit/mL Inject 22 Units subcutaneously three times daily before meals. Getting through [facility] EL[facility] 5 mg tab(s) Take 1 tablet by mouth twice daily. losartan-hydroCHLOROthiazide (HYZAAR) 100-12.5 mg per tablet Take 1 tablet by mouth once daily. spironolactone (ALDACTONE) 25 mg tablet Take 1 tablet by mouth once daily. carvedilol (COREG) 25 mg tablet Take 1 tablet by mouth twice daily. metFORMIN ER (GLUCOPHAGE XR) 500 mg 24 hr tablet Take 2 tablets by mouth twice daily before meals. insulin glargine (BASAGLAR KWIKPEN U-100 INSULIN) 100 unit/mL (3 mL) Inject 90 Units subcutaneously daily at bedtime. simvastatin (ZOCOR) 40 mg tablet Take 1 tablet by mouth daily at bedtime. colestipol (COLESTID) 1 gram tablet Take 1 tablet by mouth once daily. finasteride (PROSCAR) 5 mg tablet flecainide (TAMBOCOR) 150 mg tablet Take 1 tablet by mouth every 12 hours. Prescribed by outside damage cutter aspirin 81 mg chewable tablet Take 81 mg by mouth once daily. insulin needles, DISPOSABLE, (1ST TIER UNIFINE PENTIPS) 31 gauge x 5/16 ndle 1 Each once daily. DX: E11.9 Insulin: Yes Insulin Syringe-Needle U-100 1/2 mL 29 x 1/2 syrg 1 Each once daily. USE ONE SYRINGE FOR EACH DOSE/1PER DAY, (E11.9, Z79.4) Diabetes mellitus type 2, insulin dependent. Lancets (ACCU-CHEK SOFTCLIX LANCETS) lancets Test blood sugar(s) 1 times daily. Dx: 250.00. Insulin: Yes COMPOUNDED PRESCRIPTION 1 Each twice daily. Accucheck compact test strips, dx-NIDDM No current facility-administered medications for this visit. ALLERGIES: Amoxicillin PERSONAL HISTORY: Social History Tobacco Use Smoking status: Former Packs/day: 2.00 Years: 10.00 Pack years: 20.00 Types: Cigarettes Quit date: 09/17/1980 Years since quittin.3 Smokeless tobacco: Never Vaping Use Vaping Use: Never used Substance Use Topics Alcohol use: No Drug use: No FAMILY HISTORY: FAMILY HISTORY Problem Relation Age of Onset Heart Father Hypertension Father Cancer Mother Colon Cancer Sister Cancer Sister Colon Cancer Brother REVIEW OF SYMPTOMS: The review of systems data was entered by the nurse and reviewed by ne Nursing Notes: Neetu Winchester RN 01/23/2023 9:08 AM Signed REVIEW OF SYSTEMS: General: The patient NOTES fatigue, denies weight loss, denies weight gain, denies feeling hot, and denies feelings of cold. Eyes: The patient denies glaucoma, NOTES eye injury/surgery, wears glasses or contacts. Ear/Nose/Throat: The patient denies allergies, denies hayfever, denies ear infections, and denies bloody noses. Cardiovascular: The patient denies chest pain, denies heart disease, NOTES high blood pressure,denies cardiac stent, denies prior heart attack, NOTES irregular heart beat, denies high cholesterol, denies poor circulation, denies heart failure, other cardiac issues, denies claudication, denies cold feet, denies peripheral arterial stent. Respiratory: The patient denies tuberculosis, denies pneumonia, denies frequent cough, denies pulmonary embolism, denies shortness of breath, and denies coughing up blood. Gastrointestinal: The patient denies difficulty swallowing, denies acid reflux, denies ulcers, denies vomiting, denies jaundice/hepatitis, NOTES (more content not included)...[facility]05-05-2023 NoteHNO ID: [id number] Author: Jeff Virgen MD Service: ? Author Type: Physician Type: Progress Notes Filed: 01/19/2023 2:30 PM Note Text: Patient presents with: lump on chest HPI: Patient presents today for office visit for follow up. May have noticed it about a month ago. Seems to be enlarging Not hot or red. No drainage. No itching. No trauma. No pain. MEDICATIONS: Current Outpatient Medications Medication Sig insulin lispro (HUMALOG KWIKPEN INSULIN) 100 unit/mL Inject 22 Units subcutaneously three times daily before meals. Getting through [facility] ELIQUIS 5 mg tab(s) Take 1 tablet by mouth twice daily. dilTIAZem CD (CARDIZEM CD) 120 mg 24 hr capsule Take 1 capsule by mouth once daily. losartan-hydroCHLOROthiazide (HYZAAR) 100-12.5 mg per tablet Take 1 tablet by mouth once daily. spironolactone (ALDACTONE) 25 mg tablet Take 1 tablet by mouth once daily. carvedilol (COREG) 25 mg tablet Take 1 tablet by mouth twice daily. metFORMIN ER (GLUCOPHAGE XR) 500 mg 24 hr tablet Take 2 tablets by mouth twice daily before meals. insulin glargine (BASAGLAR KWIKPEN U-100 INSULIN) 100 unit/mL (3 mL) Inject 90 Units subcutaneously daily at bedtime. simvastatin (ZOCOR) 40 mg tablet Take 1 tablet by mouth daily at bedtime. colestipol (COLESTID) 1 gram tablet Take 1 tablet by mouth once daily. finasteride (PROSCAR) 5 mg tablet flecainide (TAMBOCOR) 150 mg tablet Take 1 tablet by mouth every 12 hours. Prescribed by outside damage cutter aspirin 81 mg chewable tablet Take 81 mg by mouth once daily. insulin needles, DISPOSABLE, (1ST TIER UNIFINE PENTIPS) 31 gauge x 5/16 ndle 1 Each once daily. DX: E11.9 Insulin: Yes Insulin Syringe-Needle U-100 1/2 mL 29 x 1/2 syrg 1 Each once daily. USE ONE SYRINGE FOR EACH DOSE/1PER DAY, (E11.9, Z79.4) Diabetes mellitus type 2, insulin dependent. Lancets (ACCU-CHEK SOFTCLIX LANCETS) lancets Test blood sugar(s) 1 times daily. Dx: 250.00. Insulin: Yes COMPOUNDED PRESCRIPTION 1 Each twice daily. Accucheck compact test strips, dx-NIDDM No current facility-administered medications for this visit. 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 Stable for years. Sleep apnea 03/31/2009 Pt declined my recs for testing as of 03-25 PAST SURGICAL HISTORY Procedure Laterality Date COLONOSCOPY FLX DX W/COLLJ SPEC WHEN PFRMD 01/12/2010 Colonoscopy COLSC FLX W/REMOVAL LESION BY HOT BX FORCEPS 04/21/15 CYSTOURETHROSCOPY 02/07/2019 Cystoscopy and cystolitholapaxy and laser of bladder stone with evacuation of stone fragments Dr Daley PAST SURGICAL HISTORY OF RIGHT WRIST SURGERY, had repair of fx RPR UMBILICAL HERNIA < 5 YRS REDUCIBLE Hernia repair, umbilical FAMILY HISTORY Problem Relation Age of Onset Heart Father Hypertension Father Cancer Mother Colon Cancer Sister Cancer Sister Colon Cancer Brother Social History Tobacco Use Smoking status: Former Packs/day: 2.00 Years: 10.00 Pack years: 20.00 Types: Cigarettes Quit date: 09/17/1980 Years since quittin.3 Smokeless tobacco: Never Vaping Use Vaping Use: Never used Substance Use Topics Alcohol use: No Drug use: No Reviewed current medications, allergies, past medical history, surgical history, family history and social history today. REVIEW OF SYSTEMS All other reviewed and negative other than HPI. VITALS: BP 134/72 Pulse 86 Resp 16 Wt (!) 137.4 kg (303 lb) BMI 39.98 kg/m? Last 4 Encounter Wt Readings: Date: Wt: 01/19/2023 137.4 kg (303 lb) 11/29/2022 137.9 kg (304 lb) 05/31/2022 136.1 kg (300 lb) 04/08/2022 137.3 kg (302 lb 9.6 oz) PHYSICAL EXAMINATION: General appearance: Well appearing, alert, in no acute distress, well-hydrated, well nourished. Skin: small lipoma like lesion on anterior chest. No redness or warmth. ASSESSMENT/PLAN: 1. Skin mass - ICD9: 782.2, ICD10: R22.9 - suspect lipoma. Since enlarging, asks to see surgery to have removed. - CONSULT TO GENERAL SURGERY Jeff Virgen [facility]05-05-2023 History of Present illness Narrative* Jeff Virgen MD - 01/19/2023 2:24 PM EDT Patient presents with: lump on chest HPI: Patient presents today for office visit for follow up. May have noticed it about a month ago. Seems to be enlarging Not hot or red. No drainage. No itching. No trauma. No pain. MEDICATIONS: Current Outpatient Medications Medication Sig insulin lispro (HUMALOG KWIKPEN INSULIN) 100 unit/mL Inject 22 Units subcutaneously three times daily before meals. Getting through [facility] ELIQUIS 5 mg tab(s) Take 1 tablet by mouth twice daily. dilTIAZem CD (CARDIZEM CD) 120 mg 24 hr capsule Take 1 capsule by mouth once daily. losartan-hydroCHLOROthiazide (HYZAAR) 100-12.5 mg per tablet Take 1 tablet by mouth once daily. spironolactone (ALDACTONE) 25 mg tablet Take 1 tablet by mouth once daily. carvedilol (COREG) 25 mg tablet Take 1 tablet by mouth twice daily. metFORMIN ER (GLUCOPHAGE XR) 500 mg 24 hr tablet Take 2 tablets by mouth twice daily before meals. insulin glargine (BASAGLAR KWIKPEN U-100 INSULIN) 100 unit/mL (3 mL) Inject 90 Units subcutaneouslydaily at bedtime. simvastatin (ZOCOR) 40 mg tablet Take 1 tablet by mouth daily at bedtime. colestipol (COLESTID) 1 gram tablet Take 1 tablet by mouth once daily. finasteride (PROSCAR) 5 mg tablet flecainide (TAMBOCOR) 150 mg tablet Take 1 tablet by mouth every 12 hours. Prescribed by outside damage cutter aspirin 81 mg chewable tablet Take 81 mg by mouth once daily. insulin needles, DISPOSABLE, (1ST TIER UNIFINE PENTIPS) 31 gauge x 5/16 ndle 1 Each once daily. DX: E11.9 Insulin: Yes Insulin Syringe-Needle U-100 1/2 mL 29 x 1/2 syrg 1 Each once daily. USE ONE SYRINGE FOR EACH DOSE/1PER DAY, (E11.9, Z79.4) Diabetes mellitus type 2, insulin dependent. Lancets (ACCU-CHEK SOFTCLIX LANCETS) lancets Test blood sugar(s) 1 times daily. Dx: 250.00. Insulin: Yes COMPOUNDED PRESCRIPTION 1 Each twice daily. Accucheck compact test strips, dx-NIDDM No current facility-administered medications for this visit. 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 Stable for years. Sleep apnea 03/31/2009 Pt declined my recs for testing as of 03-25 PAST SURGICAL HISTORY Procedure Laterality Date COLONOSCOPY FLX DX W/COLLJ SPEC WHEN PFRMD 01/12/2010 Colonoscopy COLSC FLX W/REMOVAL LESION BY HOT BX FORCEPS 04/21/15 CYSTOURETHROSCOPY 02/07/2019 Cystoscopy and cystolitholapaxy and laser of bladder stone with evacuation of stone fragments Dr Daley PAST SURGICAL HISTORY OF RIGHT WRIST SURGERY, had repair of fx RPR UMBILICAL HERNIA < 5 YRS REDUCIBLE Hernia repair, umbilical FAMILY HISTORY Problem Relation Age of Onset Heart Father Hypertension Father Cancer Mother Colon Cancer Sister Cancer Sister Colon Cancer Brother Social History Tobacco Use Smoking status: Former Packs/day: 2.00 Years: 10.00 Pack years: 20.00 Types: Cigarettes Quit date: 09/17/1980 Years since quittin.3 Smokeless tobacco: Never Vaping Use Vaping Use: Never used Substance Use Topics Alcohol use: No Drug use: No Reviewed current medications, allergies, past medical history, surgical history, family history andsocial history today. REVIEW OF SYSTEMS All other reviewed and negative other than HPI. VITALS: BP 134/72 Pulse 86 Resp 16 Wt (!) 137.4 kg (303 lb) BMI 39.98 kg/m Last 4 Encounter Wt Readings: Date: Wt: 01/19/2023 137.4 kg (303 lb) 11/29/2022 137.9 kg (304 lb) 05/31/2022 136.1 kg (300 lb) 04/08/2022 137.3 kg (302 lb 9.6 oz) PHYSICAL EXAMINATION: General appearance: Well appearing, alert, in no acute distress, well-hydrated, well nourished. Skin: small lipoma like lesion on anterior chest. No redness or warmth. ASSESSMENT/PLAN: 1. Skin mass - ICD9: 782.2, ICD10: R22.9 - suspect lipoma. Since enlarging, asks to see surgery to have removed. - CONSULT TO GENERAL SURGERY Jeff Virgen MD documented in this encounterWright[facility]03-[facility] NoteHNO ID: [id number] Author: Jeff Virgen MD Service: ? Author Type: Physician Type: Progress Notes Filed: 11/29/2022 10:08 AM Note Text: Patient presents with: Transition Of Care HPI: Patient presents today for office visit for hospital follow up. Seen in [facility] on 11/21/22. Discharged 11/21/22 Chest pain. No change in meds. Stress test negative. EF57% WBC elevated. Had previous heart cath. Had walked an excessive amount that he is not used to prior to the pain and overdid it. No cough or heart burn. Denies current chest pain. States he's always short of breath. No edema. Overall is doing better. Sugars are much better! He is watching his diet. Has seen pulmonary in the past for his shortness of breath. TCM note: TRANSITION CARE MANAGEMENT (TCM) INITIAL CONTACT [facility] Provider Action/FYI: -pt admitted to [facility] on 11/21/22 for 24hr observation d/t chest pain -stress testing negative -no change in meds -pt currently scheduled for follow up with PCP on 11/29 -phoned pt, no answer, unable to leave message. Initial contact with patient post discharge, contact not made. Phoned pt, no answer, unable to leave message. Patient identified by name and . Component Latest Ref Rng AND Units 11/27/2022 WBC 3.70 - 11.00 k/uL 11.08 (H) RBC 4.20 - 6.00 m/uL 5.26 Hemoglobin 13.0 - 17.0 g/dL 14.8 Hematocrit 39.0 - 51.0 % 45.3 MCV 80.0 - 100.0 fL 86.1 MCH 26.0 - 34.0 pg 28.1 MCHC 30.5 - 36.0 g/dL 32.7 RDW-CV 11.5 - 15.0 % 13.3 Platelet Count 150 - 400 k/uL 277 MPV 9.0 - 12.7 fL 11.3 Neut% % 67.5 Abs Neut (ANC) 1.45 - 7.50 k/uL 7.49 Lymph% % 17.6 Abs Lymph 1.00 - 4.00 k/uL 1.95 Comal% % 9.8 Abs Comal <0.87 k/uL 1.09 (H) Eosin% % 4.1 Abs Eosin <0.46 k/uL 0.45 Baso% % 0.5 Abs Baso <0.11 k/uL 0.05 Immature Gran % % 0.5 IMMATURE GRANS (ABS) <0.10 k/uL 0.05 NRBC /100 WBC 0.0 Absolute nRBC <0.01 k/uL <0.01 DTYPE Auto Protein, Total 6.3 - 8.0 g/dL 7.2 Albumin 3.9 - 4.9 g/dL 4.3 Calcium 8.5 - 10.2 mg/dL 9.4 Bilirubin, Total 0.2 - 1.3 mg/dL 0.4 Alkaline Phosphatase 38 - 113 U/L 66 AST 14 - 40 U/L 21 ALT 10 - 54 U/L 21 Glucose 74 - 99 mg/dL 164 (H) BUN 9 - 24 mg/dL 17 Creatinine 0.73 - 1.22 mg/dL 0.96 Sodium 136 - 144 mmol/L 135 (L) Potassium 3.7 - 5.1 mmol/L 4.5 Chloride 97 - 105 mmol/L 100 CO2 22 - 30 mmol/L 23 Anion Gap 9 - 18 mmol/L 12 eGFR >=60 mL/min/1.73mA? 81 Cholesterol, Total <200 mg/dL 117 Triglyceride <150 mg/dL 132 HDL Cholesterol >39 mg/dL 42 Non HDL Cholesterol <130 mg/dL 75 Fasting Time hrs 8 VLDL Cholesterol <30 mg/dL 26 TC:HDL Ratio <5.10 2.79 LDL Cholesterol <100 mg/dL 49 LDL:HDL Ratio <2.54 1.17 Creatinine, Ur Random (UCRR) 20.0 - 300.0 mg/dL 226.0 Albumin, Urine Random mg/L 25.1 Albumin/Creat Ratio <30 mg/g 11 Hemoglobin A1C 4.3 - 5.6 % 7.5 (H) Estimated Average Glucose mg/dL 169 MEDICATIONS: Current Outpatient Medications Medication Sig dilTIAZem CD (CARDIZEM CD) 120 mg 24 hr capsule Take 1 capsule by mouth once daily. losartan-hydroCHLOROthiazide (HYZAAR) 100-12.5 mg per tablet Take 1 tablet by mouth once daily. spironolactone (ALDACTONE) 25 mg tablet Take 1 tablet by mouth once daily. insulin glargine (LANTUS SOLOSTAR U-100 INSULIN) 100 unit/mL (3 mL) Inject 90 Units subcutaneously daily at bedtime. carvedilol (COREG) 25 mg tablet Take 1 tablet by mouth twice daily. metFORMIN ER (GLUCOPHAGE XR) 500 mg 24 hr tablet Take 2 tablets by mouth twice daily before meals. insulin glargine (BASAGLAR KWIKPEN U-100 INSULIN) 100 unit/mL (3 mL) Inject 90 Units subcutaneously daily at bedtime. simvastatin (ZOCOR) 40 mg tablet Take 1 tablet by mouth daily at bedtime. colestipol (COLESTID) 1 gram tablet Take 1 tablet by mouth once daily. insulin lispro (HUMALOG KWIKPEN INSULIN) 100 unit/mL Inject 26 Units subcutaneously three times daily before meals. finasteride (PROSCAR) 5 mg tablet ELIQUIS 5 mg tab(s) Take 1 tablet by mouth twice daily. flecainide (TAMBOCOR) 150 mg tablet Take 1 tablet by mouth every 12 hours. Prescribed by outside damage cutter aspirin 81 mg chewable tablet Take 81 mg by mouth once daily. insulin needles, DISPOSABLE, (1ST TIER UNIFINE PENTIPS) 31 gauge x 5/16 ndle 1 Each once daily. DX: E11.9 Insulin: Yes Insulin Syringe-Needle U-100 1/2 mL 29 x 1/2 syrg 1 Each once daily. USE ONE SYRINGE FOR EACH DOSE/1PER DAY, (E11.9, Z79.4) Diabetes mellitus type 2, insulin dependent. Lancets (ACCU-CHEK SOFTCLIX LANCETS) lancets Test blood sugar(s) 1 times daily. Dx: 250.00. Insulin: Yes COMPOUNDED PRESCRIPTION 1 Each twice daily. Accucheck compact test strips, dx-NIDDM No current facility-administered medications for this visit. ALLERGIES: ALLERGIES Allergen Reactions Amoxicillin generalized erythema PAST MEDICAL HISTORY Diagnosis Date DIABETES MELLITUS TYPE II UNCONTR UNCOMPL 05/11/2005 Diverticulosis of colon (without mention of hemorrhage) (more content not included)...[facility]03-15-2023 History of Present illness Narrative* Jeff Virgen MD - 11/29/2022 9:33 AM EDT Patient presents with: Transition Of Care HPI: Patient presents today for office visit for hospital follow up. Seen in [facility] on 11/21/22. Discharged 11/21/22 Chest pain. No change in meds. Stress test negative. EF57% WBC elevated. Had previous heart cath. Had walked an excessive amount that he is not used to prior to the pain and overdid it. No cough or heart burn. Denies current chest pain. States he's always short of breath. No edema. Overall is doing better. Sugars are much better! He is watching his diet. Has seen pulmonary in the past for his shortness of breath. TCM note: TRANSITION CARE MANAGEMENT (TCM) INITIAL CONTACT [facility] Provider Action/FYI: -pt admitted to [facility] on 11/21/22 for 24hr observation d/t chest pain -stress testing negative -no change in meds -pt currently scheduled for follow up with PCP on 11/29 -phoned pt, no answer, unable to leave message. Initial contact with patient post discharge, contact not made. Phoned pt, no answer, unable to leave message. Patient identified by name and . Component Latest Ref Rng & Units 11/27/2022 WBC 3.70 - 11.00 k/uL 11.08 (H) RBC 4.20 - 6.00 m/uL 5.26 Hemoglobin 13.0 - 17.0 g/dL 14.8 Hematocrit 39.0 - 51.0 % 45.3 MCV 80.0 - 100.0 fL 86.1 MCH 26.0 - 34.0 pg 28.1 MCHC 30.5 - 36.0 g/dL 32.7 RDW-CV 11.5 - 15.0 % 13.3 Platelet Count 150 - 400 k/uL 277 MPV 9.0 - 12.7 fL 11.3 Neut% % 67.5 Abs Neut (ANC) 1.45 - 7.50 k/uL 7.49 Lymph% % 17.6 Abs Lymph 1.00 - 4.00 k/uL 1.95 Comal% % 9.8 Abs Comal <0.87 k/uL 1.09 (H) Eosin% % 4.1 Abs Eosin <0.46 k/uL 0.45 Baso% % 0.5 Abs Baso <0.11 k/uL 0.05 Immature Gran % % 0.5 IMMATURE GRANS (ABS) <0.10 k/uL 0.05 NRBC /100 WBC 0.0 Absolute nRBC <0.01 k/uL <0.01 DTYPE Auto Protein, Total 6.3 - 8.0 g/dL 7.2 Albumin 3.9 - 4.9 g/dL 4.3 Calcium 8.5 - 10.2 mg/dL 9.4 Bilirubin, Total 0.2 - 1.3 mg/dL 0.4 Alkaline Phosphatase 38 - 113 U/L 66 AST 14 - 40 U/L 21 ALT 10 - 54 U/L 21 Glucose 74 - 99 mg/dL 164 (H) BUN 9 - 24 mg/dL 17 Creatinine 0.73 - 1.22 mg/dL 0.96 Sodium 136 - 144 mmol/L 135 (L) Potassium 3.7 - 5.1 mmol/L 4.5 Chloride 97 - 105 mmol/L 100 CO2 22 - 30 mmol/L 23 Anion Gap 9 - 18 mmol/L 12 eGFR >=60 mL/min/1.73m 81 Cholesterol, Total <200 mg/dL 117 Triglyceride <150 mg/dL 132 HDL Cholesterol >39 mg/dL 42 Non HDL Cholesterol <130 mg/dL 75 Fasting Time hrs 8 VLDL Cholesterol <30 mg/dL 26 TC:HDL Ratio <5.10 2.79 LDL Cholesterol <100 mg/dL 49 LDL:HDL Ratio <2.54 1.17 Creatinine, Ur Random (UCRR) 20.0 - 300.0 mg/dL 226.0 Albumin, Urine Random mg/L 25.1 Albumin/Creat Ratio <30 mg/g 11 Hemoglobin A1C 4.3 - 5.6 % 7.5 (H) Estimated Average Glucose mg/dL 169 MEDICATIONS: Current Outpatient Medications Medication Sig dilTIAZem CD (CARDIZEM CD) 120 mg 24 hr capsule Take 1 capsule by mouth once daily. losartan-hydroCHLOROthiazide (HYZAAR) 100-12.5 mg per tablet Take 1 tablet by mouth once daily. spironolactone (ALDACTONE) 25 mg tablet Take 1 tablet by mouth once daily. insulin glargine (LANTUS SOLOSTAR U-100 INSULIN) 100 unit/mL (3 mL) Inject 90 Units subcutaneously daily at bedtime. carvedilol (COREG) 25 mg tablet Take 1 tablet by mouth twice daily. metFORMIN ER (GLUCOPHAGE XR) 500 mg 24 hr tablet Take 2 tablets by mouth twice daily before meals. insulin glargine (BASAGLAR KWIKPEN U-100 INSULIN) 100 unit/mL (3 mL) Inject 90 Units subcutaneouslydaily at bedtime. simvastatin (ZOCOR) 40 mg tablet Take 1 tablet by mouth daily at bedtime. colestipol (COLESTID) 1 gram tablet Take 1 tablet by mouth once daily. insulin lispro (HUMALOG KWIKPEN INSULIN) 100 unit/mL Inject 26 Units subcutaneously three times daily before meals. finasteride (PROSCAR) 5 mg tablet ELIQUIS 5 mg tab(s) Take 1 tablet by mouth twice daily. flecainide (TAMBOCOR) 150 mg tablet Take 1 tablet by mouth every 12 hours. Prescribed by outside damage cutter aspirin 81 mg chewable tablet Take 81 mg by mouth once daily. insulin needles, DISPOSABLE, (1ST TIER UNIFINE PENTIPS) 31 gauge x 5/16 ndle 1 Each once daily. DX: E11.9 Insulin: Yes Insulin Syringe-Needle U-100 1/2 mL 29 x 1/2 syrg 1 Each once daily. USE ONE SYRINGE FOR EACH DOSE/1PER DAY, (E11.9, Z79.4) Diabetes mellitus type 2, insulin dependent. Lancets (ACCU-CHEK SOFTCLIX LANCETS) lancets Test blood sugar(s) 1 times daily. Dx: 250.00. Insulin: Yes COMPOUNDED PRESCRIPTION 1 Each twice daily. Accucheck compact test strips, dx-NIDDM No current facility-administered medications for this visit. 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 Stable for years. Sleep apnea 03/31/2009 Pt declined my recs for testing as of 03-25 PAST SURGICAL HISTORY Procedure Laterality Date COLONOSCOPY FLX DX W/COLLJ SPEC WHEN PFRMD 01/12/2010 Colonoscopy COLSC FLX W/REMOVAL LESION BY HOT BX FORCEPS 04/21/15 CYSTOURETHROSCOPY 02/07/2019 Cystoscopy and cystolitholapaxy and laser of bladder stone with evacuation of stone fragments Dr Daley PAST SURGICAL HISTORY OF RIGHT WRIST SURGERY, had repair of fx RPR UMBILICAL HERNIA < 5 YRS REDUCIBLE Hernia repair, umbilical FAMILY HISTORY Problem Relation Age of Onset Heart Father Hypertension Father Cancer Mother Colon Cancer Sister Cancer Sister Colon Cancer Brother Social History Tobacco Use Smoking status: Former Packs/day: 2.00 Years: 10.00 Pack years: 20.00 Types: Cigarettes Quit date: 09/17/1980 Years since quittin.2 Smokeless tobacco: Never Vaping Use Vaping Use: Never used Substance Use Topics Alcohol use: No Drug use: No Reviewed current medications, allergies, past medical history, surgical history, family history andsocial history today. REVIEW OF SYSTEMS All other reviewed and negative other than HPI. VITALS: BP 136/68 Pulse 85 Ht 185.4 cm (6' 1 ) Wt (!) 137.9 kg (304 lb) SpO2 96% BMI 40.11 kg/m Last 4 Encounter Wt Readings: Date: Wt: 05/31/2022 136.1 kg (300 lb) 04/08/2022 137.3 kg (302 lb 9.6 oz) 03/03/2022 136.5 kg (301 lb) 01/27/2022 136.6 kg (301 lb 3.2 oz) PHYSICAL EXAMINATION: General appearance: Well appearing, alert, in no acute distress, well-hydrated, well nourished. Skin: Skin color, texture, turgor normal, no suspicious rashes or lesions Head: Normocephalic, no masses, lesions, tenderness or abnormalities Lungs: Lungs clear to auscultation. No wheezing, rhonchi, rales Heart: RRR without murmur, gallop, or rubs. No ectopy Abdomen: Normal abdominal exam, Abdomen soft, non-tender. Bowel sounds normal. No masses, organomegaly Extremities: No deformities, edema, skin discoloration, clubbing or cyanosis. Good capillary refill. ASSESSMENT/PLAN: 1. Chest pain, unspecified type - ICD9: 786.50, ICD10: R07.9 (primary diagnosis) - call if recurs. 2. Leukocytosis, unspecified type - ICD9: 288.60, ICD10: D72.829 - PATHOLOGIST INTERPRETATION WITH CBC AND DIFF- do labs in one month 3. Type 2 diabetes mellitus with microalbuminuria, with long-term current use of insulin (HCC) - ICD9: 250.40, 791.0, V58.67, ICD10: E11.29, R80.9, Z79.4 - Improving control! - recheck labs in six months 4. Schizophrenia, chronic condition (HCC) - ICD9: 295.62, ICD10: F20.9 - stable. 5. Paroxysmal atrial fibrillation (HCC) - ICD9: 427.31, ICD10: I48.0 6. Essential hypertension - ICD9: 401.9, ICD10: I10 - good control - Continue current medication(s) - Goal of BP <130/80 7. Pure hypercholesterolemia - ICD9: 272.0, ICD10: E78.00 - stable. Jeff Virgen MD documented in this encounterWright-Pat[facility]03-13-2023 Miscellaneous Notes* Telephone Encounter - Sheila Twin WALKER - 11/27/2022 9:43 AM EDT PATIENT NOTIFIED OF SAME. * Telephone Encounter - Jeff Virgen MD - 11/27/2022 8:11 AM EDT Placed. * Telephone Encounter - Kennedi Frey LPN - 11/27/2022 8:06 AM EDT Daughter called back and requesting Hgb A1C and anything else you feel needed. Pt wants to come in as soon as you get the lab in. Pt is fasting now. Please call as soon as the lab orders are in. PH> [phone]. Kennedi Frey LPN * Telephone Encounter - Tammy Davies LPN - 11/27/2022 8:05 AM EDT Patient calling has appt scheduled with PCP for 11/29/2022 and is fasting this morning asking if anylab work is needed? Last labs were done 05/2022, pending orders if wanted, needs diagnosis. Please advise * Telephone Encounter - Michaelle Rudd - 11/25/2022 8:19 AM EST Pt came in for labs 11/25. No labs in active request to be done. Please advise and call patient if there are labs that need done. Thank you, Michaelle HERBERT documented in this encounterWright-Patterson [facility] Center03-08-2023 NotePatient Outreach (FAMPWS) ESHAFAISAL Leslee ([id number]) 1945 M Date Time Provider Department 11/22/22 JEFF VIRGEN During your visit today, we recorded the following information about you: Christine Bob PENSION FUND MANAGER 11/22/2022 9:37 AM Signed TRANSITION CARE MANAGEMENT (TCM) INITIAL CONTACT [facility] Provider Action/FYI: -pt admitted to [facility] on 11/21/22 for 24hr observation d/t chest pain -stress testing negative -no change in meds -pt currently scheduled for follow up with PCP on 11/29 -phoned pt, no answer, unable to leave message. Initial contact with patient post discharge, contact not made. Phoned pt, no answer, unable to leave message. Patient identified by name and . TRANSITION CARE MANAGEMENT INITIAL OUTREACH DOCUMENTATION: No flowsheet data found. SUMMARY: -Pt discharged from [facility] on 11/21/22. -Admitted for: Chest Pain Do you have a hospital follow up appointment with your PCP? Appointment on 11/[address] Virgen. Yes. Remind patient of appointment date, time, and location. If not within 14 calendar days of discharge - please reschedule accordingly. Medical records from recent hospitalization: [place] Placed in provider mailbox for further review. Allergies As of Date: 11/22/2022 Noted Allergy Reaction AMOXICILLIN 05/11/2005 Comments: generalized erythema Date Reviewed: 05/31/2022 Reviewed by: Lulu Walls - Fully Assessed Reason for Visit: Transition Of Care [4074] Cmt: [facility] 11/21-11/21 dx: chest pain Prescriptions as of 11/22/2022 - losartan-hydroCHLOROthiazide (HYZAAR) 100-12.5 mg per tablet Take 1 tablet by mouth once daily. - spironolactone (ALDACTONE) 25 mg tablet Take 1 tablet by mouth once daily. - insulin glargine (LANTUS SOLOSTAR U-100 INSULIN) 100 unit/mL (3 mL) Inject 90 Units subcutaneously daily at bedtime. - carvedilol (COREG) 25 mg tablet Take 1 tablet by mouth twice daily. - metFORMIN ER (GLUCOPHAGE XR) 500 mg 24 hr tablet Take 2 tablets by mouth twice daily before meals. - insulin glargine (BASAGLAR KWIKPEN U-100 INSULIN) 100 unit/mL (3 mL) Inject 90 Units subcutaneously daily at bedtime. - simvastatin (ZOCOR) 40 mg tablet Take 1 tablet by mouth daily at bedtime. - empagliflozin (JARDIANCE) 10 mg tablet Take 1 tablet by mouth daily with breakfast. - dilTIAZem CD (CARDIZEM CD) 120 mg 24 hr capsule Take 1 capsule by mouth once daily. - colestipol (COLESTID) 1 gram tablet Take 1 tablet by mouth once daily. - insulin lispro (HUMALOG KWIKPEN INSULIN) 100 unit/mL Inject 26 Units subcutaneously three times daily before meals. - finasteride (PROSCAR) 5 mg tablet - ELIQUIS 5 mg tab(s) Take 1 tablet by mouth twice daily. - flecainide (TAMBOCOR) 150 mg tablet Take 1 tablet by mouth every 12 hours. Prescribed by outside damage cutter - aspirin 81 mg chewable tablet Take 81 mg by mouth once daily. - insulin needles, DISPOSABLE, (1ST TIER UNIFINE PENTIPS) 31 gauge x 5/16 ndle 1 Each once daily. DX: E11.9 Insulin: Yes - tamsulosin ER (FLOMAX) 0.4 mg cap Take 0.4 mg by mouth once daily. Prescribed by Dr. Daley, Urologist - Insulin Syringe-Needle U-100 1/2 mL 29 x 1/2 syrg 1 Each once daily. USE ONE SYRINGE FOR EACH DOSE/1PER DAY, (E11.9, Z79.4) Diabetes mellitus type 2, insulin dependent. - Lancets (ACCU-CHEK SOFTCLIX LANCETS) lancets Test blood sugar(s) 1 times daily. Dx: 250.00. Insulin: Yes - COMPOUNDED PRESCRIPTION 1 Each twice daily. 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 Author Type: ? Type: Progress Notes Filed: 11/22/2022 9:37 AM Note Text: TRANSITION CARE MANAGEMENT (TCM) INITIAL CONTACT [facility] Provider Action/FYI: -pt admitted to [facility] on 11/21/22 for 24hr observation d/t chest pain -stress testing negative -no change in meds -pt currently scheduled for follow up with PCP on 11/29 -phoned pt, no answer, unable to leave message. Initial contact with patient post discharge, contact not made. Phoned pt, no answer, unable to leave message. Patient identified by name and . TRANSITION CARE MANAGEMENT INITIAL OUTREACH DOCUMENTATION: No flowsheet data found. SUMMARY: -Pt discharged from [facility] on 11/21/22. -Admitted for: Chest Pain Do you have a hospital follow up appointment with your PCP? Appointment on 11/[address] Virgen. Yes. Remind patient of appointment date, time, and location. If not within 14 calendar days of discharge - please reschedule accordingly. Medical records from recent hospitalization: Epic Placed in provider mailbox for further review.[facility] 11-22-2022 History of Present illness Narrative* Christine Bob LPN - 11/22/2022 9:23 AM EST TRANSITION CARE MANAGEMENT (TCM) INITIAL CONTACT [facility] Provider Action/FYI: -pt admitted to [facility] on 11/21/22 for 24hr observation d/t chest pain -stress testing negative -no change in meds -pt currently scheduled for follow up with PCP on 11/29 -phoned pt, no answer, unable to leave message. Initial contact with patient post discharge, contact not made. Phoned pt, no answer, unable to leave message. Patient identified by name and . TRANSITION CARE MANAGEMENT INITIAL OUTREACH DOCUMENTATION: No flowsheet data found. SUMMARY: -Pt discharged from [facility] on 11/21/22. -Admitted for: Chest Pain Do you have a hospital follow up appointment with your PCP? Appointment on 11/[address] Virgen. Yes. Remind patient of appointment date, time, and location. If not within 14 calendar days of discharge - please reschedule accordingly. Medical records from recent hospitalization: Epic Placed in provider mailbox for further review. documented in this encounterWright-Patterson [facility]02-25-2023 Miscellaneous Notes* Telephone Encounter - Christine Bob LPN - 11/11/2022 10:44 AM EST Patient phones requesting refills as follows: Requested Prescriptions Pending Prescriptions Disp Refills losartan-hydroCHLOROthiazide (HYZAAR) 100-12.5 mg per tablet 90 tablet 1 Sig: Take 1 tablet by mouth once daily. Please review and advise. Christine Bob LPN documented in this encounterWright-Patterson Medical Center02-24-2023 Miscellaneous Notes* Telephone Encounter - Gin Herbert - 11/10/2022 11:30 AM EST Pharmacy verified in Epic Patient has been identified by name and date of : Yes Patient aware RX will be sent to pharmacy. No need to notify patient. Loan phones for refill(s): Requested Prescriptions Pending Prescriptions Disp Refills losartan-hydroCHLOROthiazide (HYZAAR) 100-12.5 mg per tablet 90 tablet 1 Sig: Take 1 tablet by mouth once daily. Date of last office visit : 05/31/2022 Labs -05/26/22 Date of next office visit : 11/29/2022 Last 2 Encounter Wt Readings: Date: Wt: 05/31/2022 136.1 kg (300 lb) 04/08/2022 137.3 kg (302 lb 9.6 oz) Please advise. Gin Longoria Pss documented in this encounterWright-Patterson Medical Center02-09-2023 Miscellaneous Notes* Telephone Encounter - Kaitlyn Hernández RPh - 10/26/2022 3:29 PM EST Patient daughter, Loan, called and LMOM wanting to know what needs done to reapply for Eliquis PAPapplication for 2022. States patient will be out of medication next week. Returned call to daughter. Informed her that patient would need to spend at least 3% out of pocket before being eligible for the PAP. Reviewed med list, appears patient should still have active script of Eliquis at pharmacy. Advised daughter to call pharmacy to ensure patient can get med refilled. If script is , advised to contact PCP office to request new refill. Daughter expressed understanding. Kaitlyn Hernández PharmD, BCPS Primary Care Clinical Pharmacist documented in this encounterWright-Patterson Medical Center01-30-2023 Miscellaneous Notes* Addendum Note - Kaitlyn Hernández RPh - 10/16/2022 12:50 PM ESTAddended by: KAITLYN HERNÁNDEZ on: 10/16/2022 12:50 PM Modules accepted: Orders * Telephone Encounter - Kaitlyn Hernández RPh - 10/16/2022 12:46 PM EST Daughter returned call, states insurance needs a PA for Basaglar ([facility] reviewed formulary online and Basaglar is not a preferred insulin - Lantus, Toujeo, and Tresiba are). Patient used to be on Lantus. Discussed with daughter - will order Lantus to see what copay is. If affordable, she will package pick up supply. If not affordable, she will let me know and we will order Toujeo. The following approved medication requests have been transmitted electronically. Requested Prescriptions Signed Prescriptions Disp Refills insulin glargine (LANTUS SOLOSTAR U-100 INSULIN) 100 unit/mL (3 mL) 9 Each 5 Sig: Inject 90 Units subcutaneously daily at bedtime. Authorizing Provider: JEFF VIRGEN Ordering User: KAITLYN HERNÁNDEZ Will await daughter's call. Kaitlyn Hernández PharmD, [facility] Primary Care Clinical Pharmacist * Telephone Encounter - Kaitlyn Hernández RPh - 10/16/2022 12:24 PM EST Patient's daughter, Loan, called [facility] and LMOM stating patient will be running out of insulin tomorrow, needs another free trial card. Patient has application in for [employer] PAP. She called [employer] this AM, states they still have not processed application and it can take up to 30 days. States patient is going to be out of insulin tomorrow. She reports that she did not provide the pharmacy with the coupon card but the copayearlier this month was $0. Uncertain if pharmacy used their own coupon or if patient's insurance covered the cost of insulin. [facility] advised daughter to contact [employer] and ask them to process the Basaglar prescription on file. If there is a high copay, ask if the Free Trial offer card was utilized with last fill. If free trial card was NOT utilized, advised to use it. If the free trial card was previously used, advised her to contact me so a different insulin (likely Toujeo) could be ordered in the interim as a replacement). Daughter agreed to keep me informed. Kaitlyn Hernández PharmD, [facility] Primary Care Clinical Pharmacist documented in this encounterWright-Patterson Medical Center01-18-2023 Miscellaneous Notes* Telephone Encounter - Christine Bob LPN - 10/04/2022 9:32 AM EST Patient phones requesting refills as follows: Requested Prescriptions Pending Prescriptions Disp Refills metFORMIN ER (GLUCOPHAGE XR) 500 mg 24 hr tablet 360 tablet 3 Sig: Take 2 tablets by mouth twice daily before meals. ALFA 05/31/22 11/29/22 Please review and advise. Christine Bob LPN documented in this encounterWright-Patterson Medical Center01-18-2023 Miscellaneous Notes* Telephone Encounter - Christine Bob LPN - 10/04/2022 9:31 AM EST Patient phones requesting refills as follows: Requested Prescriptions Pending Prescriptions Disp Refills carvedilol (COREG) 25 mg tablet 180 tablet 1 Sig: Take 1 tablet by mouth twice daily. ALFA 05/31/22 11/29/22 Please review and advise. Christine Bob LPN documented in this encounterWright-Patterson Medical Center01-13-2023 Miscellaneous Notes* Telephone Encounter - Kaitlyn Hernández RPh - 09/29/2022 9:18 AM EST Patient's daughter, Loan, called PharmD and LMOM stating the [employer] application for insulins was submitted this week though likely won't be processed for a couple of weeks. Patient will run outof Lantus this coming Sunday but is not expecting to get shipment of new insulin in until next Sunday. Daughter wondering if there is an option for getting him insulin to last until his shipment arrives. Called and spoke with patient's daughter. Sent her a [employer] message with a Basaglar Free Trial Offer. Advised her to check with the pharmacy this morning to make sure the prescription goes through and to let me know by midday today if there is any issues. She expressed understanding. The following approved medication requests have been transmitted electronically. Requested Prescriptions Signed Prescriptions Disp Refills insulin glargine (BASAGLAR KWIKPEN U-100 INSULIN) 100 unit/mL (3 mL) 15 mL 3 Sig: Inject 90 Units subcutaneously daily at bedtime. Authorizing Provider: JEFF VIRGEN Ordering User: KAITLYN HERNÁNDEZ RPh documented in this encounterWright-Patterson Medical Center01-10-2023 Miscellaneous Notes* Telephone Encounter - Janet King Ma - 09/26/2022 9:51 AM EST Talked to daughter and advised of time and fax number. Janet King Ma * Telephone Encounter - Jaylene Henley LPN - 09/25/2022 8:01 PM EST Sent from [phone] at 8:00pm. (If no error report in the morning can let patient daughter know they were sent.) * Telephone Encounter - Jeff Virgen MD - 09/25/2022 5:53 PM EST done * Telephone Encounter - Janet King Ma - 09/25/2022 4:52 PM EST Daughter drops off forms. Needs forms to be filled out VASILE. Pt has a week's worth of insulin left. Need to document the time and fax number that the forms were faxed and give to daughter so she can have meds edon shipped for this week. * Telephone Encounter - Janet King Ma - 09/25/2022 1:08 PM EST Unable to locate forms. Advised daughter. She will reprint forms and fill them out and drop them off today. Janet King Ma * Telephone Encounter - Reanna Brannon RN - 09/25/2022 10:09 AM EST Patient's daughter Loan states that a month or so ago she had dropped of medications assistance forms for insulins through [employer]. Asking if these were received and fill out? Please fax this [phone]. Please contact Loan back either way. If provider does not have form Loan can come by and drop of other form. Please review and advise, Reanna Brannon RN documented in this encounterWright-Patterson Medical Center12-05-2022 Miscellaneous Notes* Telephone Encounter - Alejandrina Herbert - 08/21/2022 3:43 PM EST Patient has been identified by name and date of : Yes Requested Prescriptions Pending Prescriptions Disp Refills simvastatin (ZOCOR) 40 mg tablet 90 tablet 3 Sig: Take 1 tablet by mouth daily at bedtime. RX INSTRUCTIONS: Patient aware RX will be sent to pharmacy. No need to notify patient. Alejandrina Herbert documented in this encounterWright-Patterson Medical Center11-21-2022 Miscellaneous Notes* Telephone Encounter - Reanna Brannon RN - 08/07/2022 4:08 PM EST Patient call in for insulin needle broke off in abdomen. Unable to remove needle. Patient has hard area where needle was. No complaints of pain, denies it being red. Nurse Triage assessment completedwith protocol recommending for disposition of Go to ED now. Care advice reviewed with patient's daughter, patient's daughter stated understanding. Reason for Disposition Deeply embedded FB (e.g., needle or toothpick in foot) Answer Assessment - Initial Assessment Questions 1. MECHANISM: Patient was giving insulin and when patient pulled out the needle there was no needle in syringe 2. LOCATION: Right side of belly button 3. OBJECT: Insulin Needle 4. DEPTH: 1/4 inch 5. ONSET: Yesterday around 6 pm 6. PAIN: Has no pain 7. TETANUS: When was the last tetanus booster? Unsure Protocols used: Skin Foreign [id number] documented in this encounterWright-Patterson Medical Center10-06-2022 Miscellaneous Notes* Telephone Encounter - Kaitlyn Hernández RPh - 06/22/2022 11:52 AM EDT [facility] sent request to PAP technicians to assist with [employer] application for Jardiance 10mg daily. Kaitlyn Hernández PharmD, [facility] Primary Care Clinical Pharmacist documented in this encounterWright-Patterson Medical Center10-06-2022 History of Present illness Narrative* Kaitlyn Hernández RPh - 06/22/2022 11:00 AM EDT Primary Care Pharmacy Visit CC (Reason for Consult): Diabetes Goal: A1c < 7% Collaborating Provider: Dr. Virgen Last Provider Visit: 05/31/22 Faisal Alarcon is a 77 year old male presenting for follow up visit in person. Patient consents to pharmacy collaborative practice agreement. Patient is presenting today for f/up pharmacotherapy management appointment for diabetes. At last PharmD visit on 03/23, no med changes made because patient refused insulin dose adjustments and wanted to focus on dietary changes. Home BP monitoring encouraged. [facility] to concern of taking evening carvedilol dose 5 hours too early. Was encouraged to beseen in ED for chest pain work-up. At last PCP appt, no med changes made. Subjective: HPI: Reports sugars have not been great. He has been eating a lot of fair food. I need to watch myself. Says the fair is over this week. States his sugars are good if he does good with his diet. Desiresnot to add more medication. Big concern is cost of meds. Waking 1-2x/night to urinate. Personal goals: doesn't want sugars to be too bad so it causes problems; wants to avoid any problems with limbs or eyesight Current DM Medications: Metformin ER 500mg tabs - 1000mg BID Insulin glargine (Lantus) 90 units daily at bedtime (takes 2 injections of 45 units) Insulin lispro (Humalog) 26 units TIDCC Past DM Medications: Trulicity 0.75mg - GI issues (d/c'd in January 2019) GLYCEMIC CONTROL: Glucometer present at visit: Yes SMBG s: 14 day average: 190; 30 day avg 184 mg/dL Date Early AM Fasting AM 2 hr PP Before Lunch 2 hr PP Before Dinner 2 hr PP Bedtime 06/22 137 157 06/18 217 06/11 233 157 06/10 207 225 06/08 163 05/29 241 151 Hypoglycemia: none Preventative Medications: On TIM/ARB: Yes On Statin: Yes ROS: Patient denies CP, THAYER, blurred vision, dizziness or lightheadedness; reports SOB which is baseline for patient Patient denies symptoms of hypoglycemia (sweating, anxiety, palpitations, hunger, and tremor) Patient denies symptoms of hyperglycemia (polyuria, polydipsia, polyphagia) Patient denies potential medication adverse effects DIET/EXERCISE/SOCIAL Hx: Has been eating fair food a lot this summer; went to [employer] daily; goes several times per week Fried veggies, sandwiches Breakfast: couple of eggs, 4 pieces muñoz; occasionally will have waffle Lunch: yesterday had small serving mashed potatoes, baked beans, and steak Dinner: usually the same as lunch; occasionally will have salad No exercise MEDICATIONS: Pill bottles are not present Adherence: denies missed doses Pharmacy: [facility] in [place] Rx coverage: [employer] Affordability: Gets Eliquis, Humalog, and [employer] through PAPs Diabetes supplies: [employer] System: daughter sets up pill box, 2 weeks at a time ACTIVE PROBLEM LIST Other Psoriasis Essential Hypertension Obesity, Unspecified 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) Pure Hypercholesterolemia Intervertebral Lumbar Disc Disorder With Myelopathy, Lumbar Region Sleep Apnea Blind One Eye Low Hdl (Under 40) Tubular Adenoma of Colon Schizophrenia, Chronic Condition (Hcc) Obesity, Class II, Bmi 35-39.9 Paroxysmal Atrial Fibrillation (Hcc) Chronic Anticoagulation PAST MEDICAL HISTORY Diagnosis Date DIABETES MELLITUS TYPE II UNCONTR UNCOMPL 05/11/2005 Diverticulosis of colon (without mention of hemorrhage) HYPERTENSION NOS 05/11/2005 Low HDL (under 40) 06/09/2011 OBESITY NOS 05/11/2005 Other psoriasis 05/11/2005 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 Stable for years. Sleep apnea 03/31/2009 Pt declined my recs for testing as of 03-25 Past medical, family and social history reviewed and updated. ALLERGIES Allergen Reactions Amoxicillin generalized erythema Medication List Medication Directions Comments Action/Plan aspirin 81 mg chewable tablet Take 81 mg by mouth once daily. carvedilol (COREG) 25 mg tablet Take 1 tablet by mouth twice daily. colestipol (COLESTID) 1 gram tablet Take 1 tablet by mouth once daily. COMPOUNDED PRESCRIPTION 1 Each twice daily. Accucheck compact test strips, dx-NIDDM dilTIAZem CD (CARDIZEM CD) 120 mg 24 hr capsule Take 1 capsule by mouth once daily. ELIQUIS 5 mg tab(s) Take 1 tablet by mouth twice daily. finasteride (PROSCAR) 5 mg tablet None Entered flecainide (TAMBOCOR) 150 mg tablet Take 1 tablet by mouth every 12 hours. Prescribed by outside damage cutter insulin glargine (LANTUS SOLOSTAR U-100 INSULIN) 100 unit/mL (3 mL) Inject 90 Units subcutaneously daily at bedtime. Use this OR Semglee, not both. insulin lispro (HUMALOG KWIKPEN INSULIN) 100 unit/mL Inject 26 Units subcutaneously three times daily before meals. insulin needles, DISPOSABLE, (1ST TIER UNIFINE PENTIPS) 31 gauge x 5/16 ndle 1 Each once daily. DX: E11.9 Insulin: Yes Insulin Syringe-Needle U-100 1/2 mL 29 x 1/2 syrg 1 Each once daily. USE ONE SYRINGE FOR EACH DOSE/1PER DAY, (E11.9, Z79.4) Diabetes mellitus type 2, insulin dependent. Lancets (ACCU-CHEK SOFTCLIX LANCETS) lancets Test blood sugar(s) 1 times daily. Dx: 250.00. Insulin: Yes losartan-hydroCHLOROthiazide (HYZAAR) 100-12.5 mg per tablet Take 1 tablet by mouth once daily. metFORMIN ER (GLUCOPHAGE XR) 500 mg 24 hr tablet Take 2 tablets by mouth twice daily before meals. simvastatin (ZOCOR) 40 mg tablet Take 1 tablet by mouth daily at bedtime. spironolactone (ALDACTONE) 25 mg tablet Take 1 tablet by mouth once daily. tamsulosin ER (FLOMAX) 0.4 mg cap Take 0.4 mg by mouth once daily. Prescribed by Dr. Daley, Urologist Objective: Exam: Last 3 Encounter BP Readings: Date: BP: 05/31/2022 136/68 04/08/2022 136/60 03/03/2022 124/74 Wt: 136.1 kg (300 lb) BMI: 39.58 kg/(m^2) LABS: Reviewed Lab Results Component Value Date HBA1C 8.1 05/26/2022 HBA1C 7.9 02/27/2022 HBA1C 8.1 11/14/2021 HBA1C 8.6 08/16/2021 HBA1C 8.6 07/28/2021 HBA1C 8.8 05/03/2021 CMP: Glucose 130 05/26/2022 BUN 23 05/26/2022 Creatinine 0.99 05/26/2022 Sodium 134 05/26/2022 Potassium 4.4 05/26/2022 Chloride 99 05/26/2022 CO2 21 05/26/2022 Protein, Total 6.9 08/16/2021 Albumin 3.9 08/16/2021 Calcium 9.6 05/26/2022 Alkaline Phosphatase 86 08/16/2021 Bilirubin, Total 0.3 08/16/2021 AST 19 08/16/2021 ALT 17 08/16/2021 Estimated Creatinine Clearance: 89.1 mL/min (based on SCr of 0.99 mg/dL). Lab Results Component Value Date CHOL 115 08/16/2021 LDL 53 08/16/2021 HDL 36 08/16/2021 TG 130 08/16/2021 The ASCVD Risk score (Mariann DK, et al., 2019) failed to calculate for the following reasons: The valid total cholesterol range is 130 to 320 mg/dL Albumin/Creat Ratio (mg/g) Date Value 08/16/2021 231 (H) PHARMACOTHERAPY ASSESSMENT/PLAN: 1. Type 2 diabetes mellitus without complication, with long-term current use of insulin (HCC) - ICD9: 250.00, V58.67, ICD10: E11.9, Z79.4 A1c goal < 7%; uncontrolled (last A1c 8.1%); SMBGs show PPGs often elevated >200 mg/dL; patient has not been watching diet, eating a lot of fair food, doesn't seem to have much control or motivation to eat healthier; no issues with lows; patient would highly benefit from weight loss; personalgoals are better BG control to avoid complications; patient agreeable to trying Jardiance if not too expensive - he would also benefit from it weight loss benefits, kidney, and CV protections; renal fxn and LFTs sufficient for use INITIATE Jardiance 10mg daily Discussed potential risks of dehydration and genital bacterial/mycotic infxns - counseled to maintain good hydration and personal hygiene; advised patient to stop medication and contact doctor immediately if notices genital or perianal pain, erythema, tenderness, or swelling; counseled on risk of diabetic ketoacidosis - advised to go to ED if develops sudden nausea/vomiting, fatigue, confusion, SOB, and/or weakness If too costly, patient advised to contact PharmD --> will likely increase mealtime insulin at that time. Will schedule PharmD f/up accordingly. PharmD will start PAP application for Jardiance BMP with next round of labs CONTINUE metformin ER 1000mg BID, Lantus 90 units daily, and Humalog 26 units TIDAC Discussed with patient how dietary changes are important, and he continues to say he will make changes but he doesn't. Patient feels diet will improve with the fair being over this weekend. Encouraged him to create a plan of how to avoid over-eating with the upcoming holidays HbA1c: due 08/25 Follow-up Patient is scheduled to see PCP team on 11/29/22. Patient verbalized understanding of instructions. Kaitlyn Hernández PharmD, BCPS Primary Care Clinical Pharmacist The majority of the pharmacy visit (> 50%) was spent counseling and/or coordinating care for thepatient. interaction: face to face time was 35 minutes. documented in this encounterWright-Patterson Medical Center10-06-2022 Instructions* Patient Instructions* Kaitlyn Hernández RPh - 06/22/2022 11:00 AM EDT START Jardiance 10mg daily. If it is too expensive, let me know. Start to work on your diet. We want all blood sugars to be less than 200 mg/dL. documented in this encounterWright-Patterson Medical Center09-14-2022 History of Present illness Narrative* Jeff Virgen MD - 05/31/2022 10:33 AM EDT Patient presents with: Follow Up HPI: Patient presents today for office visit for 3 month follow up. HTN: Patient is compliant with meds Yes Monitors bp at home: No. Chest pain: No. Edema: No. Palpitations: No. Headache: No. Dizziness: No. DM: Reports overall feeling well. Medication side effects: No. Home sugar check frequency/results:Checks sugars every few days maybe. Watching diet: No. Unexpected weight loss: No. No Hypoglycemic spells His urine has been good. Breathing good. O2 around 95%. No dizziness or syncope. Remains on Eliquis. No bleeding issues. Had seen pulmonary. Still seeing cardiology. Still on eliquis. No bleeding issues. Has minimal monocytosis this time. Will follow. Component Latest Ref Rng & Units 05/26/2022 WBC 3.70 - 11.00 k/uL 10.19 RBC 4.20 - 6.00 m/uL 5.19 Hemoglobin 13.0 - 17.0 g/dL 14.9 Hematocrit 39.0 - 51.0 % 44.5 MCV 80.0 - 100.0 fL 85.7 MCH 26.0 - 34.0 pg 28.7 MCHC 30.5 - 36.0 g/dL 33.5 RDW-CV 11.5 - 15.0 % 14.2 Platelet Count 150 - 400 k/uL 262 MPV 9.0 - 12.7 fL 11.4 Neut% % 67.5 Abs Neut (ANC) 1.45 - 7.50 k/uL 6.88 Lymph% % 16.4 Abs Lymph 1.00 - 4.00 k/uL 1.67 Comal% % 11.8 Abs Comal <0.87 k/uL 1.20 (H) Eosin% % 3.3 Abs Eosin <0.46 k/uL 0.34 Baso% % 0.6 Abs Baso <0.11 k/uL 0.06 Immature Gran % % 0.4 IMMATURE GRANS (ABS) <0.10 k/uL 0.04 NRBC /100 WBC 0.0 Absolute nRBC <0.01 k/uL <0.01 DTYPE Auto Glucose 74 - 99 mg/dL 130 (H) BUN 9 - 24 mg/dL 23 Creatinine 0.73 - 1.22 mg/dL 0.99 Sodium 136 - 144 mmol/L 134 (L) Potassium 3.7 - 5.1 mmol/L 4.4 Chloride 97 - 105 mmol/L 99 CO2 22 - 30 mmol/L 21 (L) Anion Gap 9 - 18 mmol/L 14 Calcium 8.5 - 10.2 mg/dL 9.6 eGFR >=60 mL/min/1.73m 78 Hemoglobin A1C 4.3 - 5.6 % 8.1 (H) Estimated Average Glucose mg/dL 186 Hep C Antibody IA Negative Negative MEDICATIONS: Current Outpatient Medications Medication Sig losartan-hydroCHLOROthiazide (HYZAAR) 100-12.5 mg per tablet Take 1 tablet by mouth once daily. spironolactone (ALDACTONE) 25 mg tablet Take 1 tablet by mouth once daily. dilTIAZem CD (CARDIZEM CD) 120 mg 24 hr capsule Take 1 capsule by mouth once daily. carvedilol (COREG) 25 mg tablet Take 1 tablet by mouth twice daily. colestipol (COLESTID) 1 gram tablet Take 1 tablet by mouth once daily. insulin glargine (LANTUS SOLOSTAR U-100 INSULIN) 100 unit/mL (3 mL) Inject 90 Units subcutaneously daily at bedtime. Use this OR Semglee, not both. insulin lispro (HUMALOG KWIKPEN INSULIN) 100 unit/mL Inject 26 Units subcutaneously three times daily before meals. finasteride (PROSCAR) 5 mg tablet metFORMIN ER (GLUCOPHAGE XR) 500 mg 24 hr tablet Take 2 tablets by mouth twice daily before meals. ELIQUIS 5 mg tab(s) Take 1 tablet by mouth twice daily. flecainide (TAMBOCOR) 150 mg tablet Take 1 tablet by mouth every 12 hours. Prescribed by outside damage cutter simvastatin (ZOCOR) 40 mg tablet Take 1 tablet by mouth daily at bedtime. aspirin 81 mg chewable tablet Take 81 mg by mouth once daily. insulin needles, DISPOSABLE, (1ST TIER UNIFINE PENTIPS) 31 gauge x 5/16 ndle 1 Each once daily. DX: E11.9 Insulin: Yes tamsulosin ER (FLOMAX) 0.4 mg cap Take 0.4 mg by mouth once daily. Prescribed by Dr. Daley, Urologist Insulin Syringe-Needle U-100 1/2 mL 29 x 1/2 syrg 1 Each once daily. USE ONE SYRINGE FOR EACH DOSE/1PER DAY, (E11.9, Z79.4) Diabetes mellitus type 2, insulin dependent. Lancets (ACCU-CHEK SOFTCLIX LANCETS) lancets Test blood sugar(s) 1 times daily. Dx: 250.00. Insulin: Yes COMPOUNDED PRESCRIPTION 1 Each twice daily. Accucheck compact test strips, dx-NIDDM No current facility-administered medications for this visit. 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 Stable for years. Sleep apnea 03/31/2009 Pt declined my recs for testing as of 03-25 PAST SURGICAL HISTORY Procedure Laterality Date COLONOSCOPY FLX DX W/COLLJ SPEC WHEN PFRMD 01/12/2010 Colonoscopy COLSC FLX W/REMOVAL LESION BY HOT BX FORCEPS 04/21/15 CYSTOURETHROSCOPY 02/07/2019 Cystoscopy and cystolitholapaxy and laser of bladder stone with evacuation of stone fragments Dr Daley PAST SURGICAL HISTORY OF RIGHT WRIST SURGERY, had repair of fx RPR UMBILICAL HERNIA < 5 YRS REDUCIBLE Hernia repair, umbilical FAMILY HISTORY Problem Relation Age of Onset Heart Father Hypertension Father Cancer Mother Colon Cancer Sister Cancer Sister Colon Cancer Brother Social History Tobacco Use Smoking status: Former Packs/day: 2.00 Years: 10.00 Pack years: 20.00 Types: Cigarettes Quit date: 09/17/1980 Years since quittin.7 Smokeless tobacco: Never Vaping Use Vaping Use: Never used Substance Use Topics Alcohol use: No Drug use: No Reviewed current medications, allergies, past medical history, surgical history, family history andsocial history today. REVIEW OF SYSTEMS GI: no bowel changes. All other reviewed and negative other than HPI. HEALTH MAINTENANCE: Reviewed health maintenance issues today and recommended the following in detail. DIABETIC FOOT EXAM due on 05/06/2022 INFLUENZA(1) due on 05/18/2022 VITALS: BP 136/68 Pulse 87 Ht 185.4 cm (6' 1 ) Wt 136.1 kg (300 lb) SpO2 94% BMI 39.58 kg/m Last 4 Encounter Wt Readings: Date: Wt: 04/08/2022 137.3 kg (302 lb 9.6 oz) 03/03/2022 136.5 kg (301 lb) 01/27/2022 136.6 kg (301 lb 3.2 oz) 12/15/2021 133.8 kg (295 lb) PHYSICAL EXAMINATION: General appearance: Well appearing, alert, in no acute distress, well-hydrated, well nourished. Skin: Skin color, texture, turgor normal, no suspicious rashes or lesions Head: Normocephalic, no masses, lesions, tenderness or abnormalities Neck: Supple, no adenopathy; thyroid symmetric, normal size, no bruits Lungs: Lungs clear to auscultation. No wheezing, rhonchi, rales Heart: RRR without murmur, gallop, or rubs. No ectopy Abdomen: Normal abdominal exam, Abdomen soft, non-tender. Bowel sounds normal. No masses, organomegaly Extremities: No deformities, edema, skin discoloration, clubbing or cyanosis. Good capillary refill. Feet:Shoes and socks removed, No deformities, ulcers, calluses, normal distal pulses, and sensitiveto 10 gm monofilament ASSESSMENT/PLAN: 1. Essential hypertension - ICD9: 401.9, ICD10: I10 (primary diagnosis) - good control - Continue current medication(s) - Goal of BP <130/80 2. Paroxysmal atrial fibrillation (HCC) - ICD9: 427.31, ICD10: I48.0 - continue meds. 3. Pure hypercholesterolemia - ICD9: 272.0, ICD10: E78.00 - continue meds. 4. Type 2 diabetes mellitus with microalbuminuria, with long-term current use of insulin (HCC) - ICD9: 250.40, 791.0, V58.67, ICD10: E11.29, R80.9, Z79.4 poorly controlled - continue to follow with pharm d. - check labs in three months. Check sugars and bring list to see pharm d in JUN - HGB A1C 5. Chronic anticoagulation - ICD9: V58.61, ICD10: Z79.01 - stable 6. Monocytosis - ICD9: 288.63, ICD10: D72.82 - PATHOLOGIST INTERPRETATION WITH CBC AND DIFF 7. Need for influenza vaccination - ICD9: V04.81, ICD10: Z23 - INFLUENZA SEASONAL QUADRIVALENT HIGH DOSE AGE 65+ Jeff Virgen MD RTO in six month documented in this encounterWright[facility]08-22-[facility]22 Miscellaneous Notes* Telephone Encounter - Christine Bob LPN - 05/08/2022 5:59 PM EDT Patient phones requesting refills as follows: Requested Prescriptions Pending Prescriptions Disp Refills losartan-hydroCHLOROthiazide (HYZAAR) 100-12.5 mg per tablet 90 tablet 1 Sig: Take 1 tablet by mouth once daily. ALFA 03/03/22 NOV 05/31/22 Please review and advise. Christine Bob LPN documented in this encounterWright-Patterson [facility]07-23-2022 History of Present illness Narrative* Andrew Guallpa APRN.MANAGER OF APPLICATIONS DEVELOPMENT - 04/08/2022 2:52 PM EDT Subjective HPI Nontoxic-appearing male presents urgent care chief complaint medication concerns. Patient states hetook his evening carvedilol 4 to 5 hours to earlier today. States he is concerned because his heart feels funny . States my heart hurts . States for lunch he accidentally took his evening dose of carvedilol 5 hours too early and is concerned this is causing his chest pain. Denies any other concerns. States he is actively having chest pain. Denies any shortness of breath cough fever body aches chills nausea vomiting abdominal pain change in bowel or bladder habits. Past medical history prescription medication use allergies reviewed. 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 Stable for years. Sleep apnea 03/31/2009 Pt declined my recs for testing as of 03-25 PAST SURGICAL HISTORY Procedure Laterality Date COLONOSCOPY FLX DX W/COLLJ SPEC WHEN PFRMD 01/12/2010 Colonoscopy COLSC FLX W/REMOVAL LESION BY HOT BX FORCEPS 04/21/15 CYSTOURETHROSCOPY 02/07/2019 Cystoscopy and cystolitholapaxy and laser of bladder stone with evacuation of stone fragments Dr Daley PAST SURGICAL HISTORY OF RIGHT WRIST SURGERY, had repair of fx RPR UMBILICAL HERNIA < 5 YRS REDUCIBLE Hernia repair, umbilical ALLERGIES Amoxicillin MEDICATIONS spironolactone (ALDACTONE) 25 mg tablet Take 1 tablet by mouth once daily. losartan-hydroCHLOROthiazide (HYZAAR) 100-12.5 mg per tablet Take 1 tablet by mouth once daily. dilTIAZem CD (CARDIZEM CD) 120 mg 24 hr capsule Take 1 capsule by mouth once daily. carvedilol (COREG) 25 mg tablet Take 1 tablet by mouth twice daily. colestipol (COLESTID) 1 gram tablet Take 1 tablet by mouth once daily. insulin glargine (LANTUS SOLOSTAR U-100 INSULIN) 100 unit/mL (3 mL) Inject 90 Units subcutaneously daily at bedtime. Use this OR Semglee, not both. insulin lispro (HUMALOG KWIKPEN INSULIN) 100 unit/mL Inject 26 Units subcutaneously three times daily before meals. finasteride (PROSCAR) 5 mg tablet metFORMIN ER (GLUCOPHAGE XR) 500 mg 24 hr tablet Take 2 tablets by mouth twice daily before meals. ELIQUIS 5 mg tab(s) Take 1 tablet by mouth twice daily. flecainide (TAMBOCOR) 150 mg tablet Take 1 tablet by mouth every 12 hours. Prescribed by outside damage cutter simvastatin (ZOCOR) 40 mg tablet Take 1 tablet by mouth daily at bedtime. aspirin 81 mg chewable tablet Take 81 mg by mouth once daily. insulin needles, DISPOSABLE, (1ST TIER UNIFINE PENTIPS) 31 gauge x 5/16 ndle 1 Each once daily. DX: E11.9 Insulin: Yes tamsulosin ER (FLOMAX) 0.4 mg cap Take 0.4 mg by mouth once daily. Prescribed by Dr. Daley, Urologist Insulin Syringe-Needle U-100 1/2 mL 29 x 1/2 syrg 1 Each once daily. USE ONE SYRINGE FOR EACH DOSE/1PER DAY, (E11.9, Z79.4) Diabetes mellitus type 2, insulin dependent. Lancets (ACCU-CHEK SOFTCLIX LANCETS) lancets Test blood sugar(s) 1 times daily. Dx: 250.00. Insulin: Yes COMPOUNDED PRESCRIPTION 1 Each twice daily. Accucheck compact test strips, dx-NIDDM FAMILY HISTORY Problem Relation Age of Onset Heart Father Hypertension Father Cancer Mother Colon Cancer Sister Cancer Sister Colon Cancer Brother Social History Tobacco Use Smoking status: Former Smoker Packs/day: 2.00 Years: 10.00 Pack years: 20.00 Types: Cigarettes Quit date: 09/17/1980 Years since quittin.5 Smokeless tobacco: Never Used Vaping Use Vaping Use: Never used Substance Use Topics Alcohol use: No Drug use: No BP 136/60 Pulse 80 Temp 36.4 C (97.5 F) Resp 21 Wt (!) 137.3 kg (302 lb 9.6 oz) SpO2 97% BMI 39.92 kg/m Review of Systems Constitutional: Negative for chills, fever and malaise/fatigue. HENT: Negative for congestion, ear discharge, ear pain, sinus pain and sore throat. Eyes: Negative for blurred vision, pain, discharge and redness. Respiratory: Negative for cough, hemoptysis, sputum production, shortness of breath, wheezing and stridor. Cardiovascular: Positive for chest pain. Gastrointestinal: Negative for abdominal pain, diarrhea, nausea and vomiting. Musculoskeletal: Negative for myalgias. Skin: Negative for itching and rash. Neurological: Negative for dizziness and headaches. Objective Physical Exam Constitutional: General: He is not in acute distress. Appearance: He is not diaphoretic. HENT: Head: Normocephalic. Mouth/Throat: Mouth: Mucous membranes are moist. Pharynx: Oropharynx is clear. No oropharyngeal exudate or posterior oropharyngeal erythema. Eyes: Conjunctiva/sclera: Conjunctivae normal. Pupils: Pupils are equal, round, and reactive to light. Cardiovascular: Rate and Rhythm: Normal rate and regular rhythm. Heart sounds: Normal heart sounds. Pulmonary: Effort: Pulmonary effort is normal. No tachypnea, accessory muscle usage or respiratory distress. Breath sounds: Normal breath sounds. No stridor. Abdominal: Palpations: Abdomen is soft. Tenderness: There is no abdominal tenderness. Musculoskeletal: Cervical back: Normal range of motion and neck supple. No rigidity or tenderness. Lymphadenopathy: Cervical: No cervical adenopathy. Skin: General: Skin is warm and dry. Neurological: Mental Status: He is alert and oriented to person, place, and time. ASSESSMENT/PLAN: 1. Chest pain, unspecified type - ICD9: 786.50, ICD10: R07.9 (primary diagnosis) 2. Accidental medication error, initial encounter - ICD9: 977.9, E858.9, ICD10: T50.901A We discussed medication. Patient does take carvedilol 25 mg 2 times daily. We discussed taking medication 4 to 5 hours too early. I did explain the patient that I do not feel this is the cause of hischest pain. We discussed supportive therapies. I explained to patient if he is experiencing chest pain this is a concerning symptom must be seen in ED for further evaluation care. Patient/significantother verbalized understanding agrees with plan of care. Andrew Guallpa APRN.CAESAR documented in this encounterWright-[facility]07-07-2022 Miscellaneous Notes* Telephone Encounter - Kaitlyn Hernández RPh - 03/23/2022 1:22 PM EDT Lisy completed Rx section of [employer] inTouch application for Basaglar (to replace Lantus). Full application not required since patient already enrolled and receiving free Humalog. Rx placed on PCP's desk for signature. Kaitlyn Hernández PharmD, BCPS Primary Care Clinical Pharmacist Lisa Souza [facility] documented in this encounterWright-[facility]07-07-2022 History of Present illness Narrative* Kaitlyn Hernándze RPh - 03/23/2022 11:00 AM EDT Primary Care Pharmacy Visit CC (Reason for Consult): Diabetes Goal: A1c < 7% Collaborating Provider: Dr. Virgen Last Provider Visit: 03/03/22 Faisal Alarcon is a 76 year old male presenting for follow up visit in person. Patient consents to pharmacy collaborative practice agreement. . Patient is presenting today for f/up pharmacotherapy management appointment for diabetes. At last PharmD visit on 01/12, no med changes made at patient's request but dietary modifications encouraged and patient was advised to see if qualifies for Medicad. At last PCP appt, no med changes made. Subjective: HPI: Patient here with daughter. Needs refills on losartan, diltiazem, spironolactone, and carvedilol. Overall feels well. Is happy BGs are coming down with decreasing portion sizes. Patient doesn't qualify for Medicaid. Daughter asking about timing of BP medications. Says some of his BP meds (Carvedilol) are taken with breakfast and dinner, is concerned there is not enough separation. Patient has BP monitor at home but is not checking. Current DM Medications: Metformin ER 500mg tabs - 1000mg BID Insulin glargine (Lantus) 90 units daily at bedtime (takes 2 injections of 45 units) Insulin lispro (Humalog) 26 units TIDCC Past DM Medications: Trulicity 0.75mg - GI issues (d/c'd in January 2019) GLYCEMIC CONTROL: Glucometer present at visit: Yes SMBG s: 14 day average 168, 30 day average 171 Date Fasting AM 2 hr PP Before Lunch 2 hr PP Before Dinner 2 hr PP Bedtime 03/22 170 7/ 184 03/16 146 178 03/11 162 03/04 220 Hypoglycemia: none Preventative Medications: On TIM/ARB: Yes On Statin: Yes ROS: Patient denies CP, SOB, THAYER, blurred vision, dizziness or lightheadedness Patient denies symptoms of hypoglycemia (sweating, anxiety, palpitations, hunger, and tremor) Patient denies symptoms of hyperglycemia (polyuria, polydipsia, polyphagia) Patient denies potential medication adverse effects DIET/EXERCISE/SOCIAL Hx: Reports eating similar foods but having smaller portions MEDICATIONS: Pill bottles are not present Adherence: denies missed doses [facility]: [facility] Rx coverage: [employer] Affordability: Gets Eliquis, Humalog, and [employer] through PAPs Diabetes supplies: [employer] System: daughter sets up pill box, 2 weeks at a time ACTIVE PROBLEM LIST Other Psoriasis Essential Hypertension Obesity, Unspecified 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) Pure Hypercholesterolemia Intervertebral Lumbar Disc Disorder With Myelopathy, Lumbar Region Sleep Apnea Blind One Eye Low Hdl (Under 40) Tubular Adenoma of Colon Schizophrenia, Chronic Condition (Hcc) Obesity, Class II, Bmi 35-39.9 Paroxysmal Atrial Fibrillation (Hcc) Chronic Anticoagulation PAST MEDICAL HISTORY Diagnosis Date DIABETES MELLITUS TYPE II UNCONTR UNCOMPL 05/11/2005 Diverticulosis of colon (without mention of hemorrhage) HYPERTENSION NOS 05/11/2005 Low HDL (under 40) 06/09/2011 OBESITY NOS 05/11/2005 Other psoriasis 05/11/2005 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 Stable for years. Sleep apnea 03/31/2009 Pt declined my recs for testing as of 03-25 Past medical, family and social history reviewed and updated. ALLERGIES Allergen Reactions Amoxicillin generalized erythema Medication List Medication Directions Comments Action/Plan aspirin 81 mg chewable tablet Take 81 mg by mouth once daily. carvedilol (COREG) 25 mg tablet Take 25 mg by mouth twice daily. colestipol (COLESTID) 1 gram tablet Take 1 tablet by mouth once daily. COMPOUNDED PRESCRIPTION 1 Each twice daily. Accucheck compact test strips, dx-NIDDM dilTIAZem CD (CARDIZEM CD) 120 mg 24 hr capsule Take 1 capsule by mouth once daily. ELIQUIS 5 mg tab(s) Take 1 tablet by mouth twice daily. finasteride (PROSCAR) 5 mg tablet None Entered flecainide (TAMBOCOR) 150 mg tablet Take 1 tablet by mouth every 12 hours. Prescribed by outside damage cutter insulin glargine (LANTUS SOLOSTAR U-100 INSULIN) 100 unit/mL (3 mL) Inject 90 Units subcutaneously daily at bedtime. Use this OR Semglee, not both. insulin glargine-yfgn (SEMGLEE,INSULIN GLARG-YFGN,PEN) 100 unit/mL (3 mL) insulin pen Inject 90 Units subcutaneously daily at bedtime. Use this OR Lantus, not both. insulin lispro (HUMALOG KWIKPEN INSULIN) 100 unit/mL Inject 26 Units subcutaneously three times daily before meals. insulin needles, DISPOSABLE, (1ST TIER UNIFINE PENTIPS) 31 gauge x 5/16 ndle 1 Each once daily. DX: E11.9 Insulin: Yes Insulin Syringe-Needle U-100 1/2 mL 29 x 1/2 syrg 1 Each once daily. USE ONE SYRINGE FOR EACH DOSE/1PER DAY, (E11.9, Z79.4) Diabetes mellitus type 2, insulin dependent. Lancets (ACCU-CHEK SOFTCLIX LANCETS) lancets Test blood sugar(s) 1 times daily. Dx: 250.00. Insulin: Yes Losartan-hydroCHLOROthiazide 100-12.5 mg per tablet Take 1 tablet by mouth once daily. metFORMIN ER (GLUCOPHAGE XR) 500 mg 24 hr tablet Take 2 tablets by mouth twice daily before meals. simvastatin (ZOCOR) 40 mg tablet Take 1 tablet by mouth daily at bedtime. spironolactone (ALDACTONE) 25 mg tablet Take 25 mg by mouth once daily. tamsulosin ER (FLOMAX) 0.4 mg cap Take 0.4 mg by mouth once daily. Prescribed by Dr. Daley, Urologist Objective: Exam: VITALS: There were no vitals taken for this visit. (BP monitor malfunctioned) Last 3 Encounter BP Readings: Date: BP: 03/03/2022 124/74 01/27/2022 128/74 01/12/2022 132/75 Wt: 136.5 kg (301 lb) BMI: 39.71 kg/(m^2) LABS: Reviewed Lab Results Component Value Date HBA1C 7.9 02/27/2022 HBA1C 8.1 11/14/2021 HBA1C 8.6 08/16/2021 HBA1C 8.6 07/28/2021 HBA1C 8.8 05/03/2021 CMP: Glucose 205 02/27/2022 BUN 24 02/27/2022 Creatinine 0.96 02/27/2022 Sodium 133 02/27/2022 Potassium 4.5 02/27/2022 Chloride 98 02/27/2022 CO2 22 02/27/2022 Protein, Total 6.9 08/16/2021 Albumin 3.9 08/16/2021 Calcium 10.0 02/27/2022 Alkaline Phosphatase 86 08/16/2021 Bilirubin, Total 0.3 08/16/2021 AST 19 08/16/2021 ALT 17 08/16/2021 eGFR 81 (per BMP 02/27/22) Lab Results Component Value Date CHOL 115 08/16/2021 LDL 53 08/16/2021 HDL 36 08/16/2021 TG 130 08/16/2021 The ASCVD Risk score (Lucian PÉREZ Jr., et al., 2013) failed to calculate for the following reasons: The valid total cholesterol range is 130 to 320 mg/dL Albumin/Creat Ratio (mg/g) Date Value 08/16/2021 231 (H) PHARMACOTHERAPY ASSESSMENT/PLAN: 1. Type 2 diabetes mellitus without complication, with long-term current use of insulin (HCC) - ICD9: 250.00, V58.67, ICD10: E11.9, Z79.4 (primary diagnosis) A1c goal < 7% though could consider less strict goal of <7.5% or 8% given age and comorbidities; uncontrolled (last A1c 7.9%); minimal SMBGs to review but recorded readings are reasonably controlled; patient working to cut back on portion sizes; sounds like still eating a fair amount of carbs; patient only checking BG several times per week due to concerns about test strip cost; not having any lows; discussed either increasing insulin or focusing on lifestyle modifications - patient greatly prefers no med changes and to focus on lifestyle modification to see if A1c continues to come down in 3 mo; therefore no med changes today but will f/up after next A1c; renal fxn and LFTs sufficient for use CONTINUE current regimen PharmD will fill out Rx for Basaglar so he can get it through [employer] Cares to replace Lantus Applauded on reducing portion sizes. Strongly encouraged cutting back on high carb meals Encouraged more frequent SMBG, 2-3x/day is ideal ACEi/ARB for renal protection: yes Statin: yes HbA1c: due 05/30 2. Essential hypertension - ICD9: 401.9, ICD10: I10 BP goal < 130/80; unable to check BP today due to technical issues though BP was last checked several weeks ago and reading have been consistently well controlled; no sx of high or low BP; daughter concerned that he takes too many BP meds in AM which could be stacking up and causing some tiredness during the day, also concerned that carvedilol is not spaced exactly 12 hours apart; tolerating meds well; has BP monitor at home but not using it; no med changes today but will place refills at patient request; renal fxn and K+ sufficient for use CONTINUE current regimen Refilled losartan, diltiazem, spironolactone, and carvedilol Recommend home blood pressure monitoring, to bring results in on next visit. Requested he check BP today, if >140/90 advised to contact PharmD o Advised checking BP QAM before meds; if BP frequently >140/90 advised to switch his 2nd carvedilol tab from dinner to HS and/or switch timing of diltiazem from QAM to QPM Discussed need and benefit for weight loss Recommended no refined sugar, low refined starch, healthy oil intake (olive oil), healthy protein (fish) along the lines of the Mediterranean diet Patient is scheduled to see PCP on 05/31. Patient to have PharmD f/u on 06/22. Patient verbalized understanding of instructions. Kaitlyn Hernández PharmD, [facility] Primary Care Clinical Pharmacist Lisa Souza [facility] The majority of the pharmacy visit (> 50%) was spent counseling and/or coordinating care for thepatient. interaction: face to face time was 35 minutes. documented in this encounterWright-[facility]07-07-2022 Instructions* Patient Instructions* Kaitlyn Hernández RPh - 03/23/2022 11:00 AM EDT Images from the original note were not included. Start checking BP in the morning before your medications. If AM readings are elevated, try changingthe timing of your evening carvedilol from dinner to bedtime. You may also try changing the timing of diltiazem to evening. Check BP at home. If >140/90 please contact PharmD office. No medication changes today. Home Blood Pressure Monitoring: - Don't smoke, drink caffeinated beverages, or exercise for 30 minutes prior to checking your BP. Empty your bladder and allow for a minimum of 5 minutes of quiet rest. - Sit correctly with your feet flat on the floor and your back straight and supported. Rest your arm on a flat surface (ie a table) with your upper arm at heart level. Make sure your cuff is placed directly above the bend of your elbow. - Measure your blood pressure at the same time every day (morning, evening, before meds, after meds, etc). - Take multiple readings. Check your blood pressure 2-3 times in a row, waiting 1 minute between checks. Then calculate the average of your BP readings and record that result. - Don't take your measurement overtop of your clothing. - In general, arm cuffs are more accurate than wrist cuffs. documented in this encounterWright-Patterson Medical Center06-20-2022 Miscellaneous Notes* Telephone Encounter - Jeff Virgen MD - 03/06/2022 5:25 PM EDT He had told us at one point he was only taking it every other day which is how we have had it for some time. I will adjust since taking it every day * Telephone Encounter - Gin Longoria Pss - 03/06/2022 4:58 PM EDT Daughter is calling about patient's Colestid. The prescription currently reads every other day, but he should be taking it every day. Please review and resend to the [facility]. Daughter, Loan, can be reached at [phone] documented in this encounterWright-Patterson Medical Center06-20-2022 Miscellaneous Notes* Telephone Encounter - Jaylene Henley LPN - 03/06/2022 12:13 PM EDT Patient has been identified by name and date of : Yes Type of form: Prescription Assistance [facility] [employer] (humalog travon) Form received via: at visit form was given to Dr Marilynn Virgen completed form When form is completed, fax form to fax number provided. Form has been forwarded to: Nurse and faxed 03/06/22 Jaylene Henley LPN documented in this encounterWright-Patterson Medical Center06-17-2022 History of Present illness Narrative* Jeff Virgen MD - 03/03/2022 10:40 AM EDT Patient presents with: Follow Up: 3 month follow up diabetes HPI: Patient presents today for office visit for follow up Has followed with pharm d to help with DM control. Saw Dr. Castano recently for gastroc strain. In November saw Dr. Daley for bph Saw [facility] for shortness of breath. They feel is due to body habitus. Saw Cardiology for his a fib. He is doing better with his sugars. He has dropped his a1c an entire point in the last year. He is eating smaller portions. Checks sugars once in a while. No hypoglycemic spells. Breathing is about the same. No chest pain or palpitations. No dizziness or syncope. Remains on eliquis. No bleeding issues. His urine has been good. He has hearing aids. See previous ov: Can't hear recently. Pharmacy is adjusting insulin. Sugars are improving. Seeing cardiology and pulmonary. Cardiology felt his heart is stable. Pulmonary is working him up for shortness of breath. He had wondered if diastolic dysfunction could be contributing. No chest pain. No edema. No bleeding or bruising issues. No issues with cholesterol meds. Component Latest Ref Rng & Units 02/27/2022 Glucose 74 - 99 mg/dL 205 (H) BUN 9 - 24 mg/dL 24 Creatinine 0.73 - 1.22 mg/dL 0.96 Sodium 136 - 144 mmol/L 133 (L) Potassium 3.7 - 5.1 mmol/L 4.5 Chloride 97 - 105 mmol/L 98 CO2 22 - 30 mmol/L 22 Anion Gap 9 - 18 mmol/L 13 Calcium 8.5 - 10.2 mg/dL 10.0 eGFR >=60 mL/min/1.73m 81 Hemoglobin A1C 4.3 - 5.6 % 7.9 (H) Estimated Average Glucose mg/dL 180 MEDICATIONS: Current Outpatient Medications Medication Sig spironolactone (ALDACTONE) 25 mg tablet Take 25 mg by mouth once daily. insulin glargine-yfgn (SEMGLEE,INSULIN GLARG-YFGN,PEN) 100 unit/mL (3 mL) insulin pen Inject 90 Units subcutaneously daily at bedtime. Use this OR Lantus, not both. insulin glargine (LANTUS SOLOSTAR U-100 INSULIN) 100 unit/mL (3 mL) Inject 90 Units subcutaneously daily at bedtime. Use this OR Semglee, not both. colestipol (COLESTID) 1 gram tablet Take 1 tablet by mouth every other day. (Patient taking differently: Take 1 g by mouth once daily. ) insulin lispro (HUMALOG KWIKPEN INSULIN) 100 unit/mL Inject 26 Units subcutaneously three times daily before meals. finasteride (PROSCAR) 5 mg tablet metFORMIN ER (GLUCOPHAGE XR) 500 mg 24 hr tablet Take 2 tablets by mouth twice daily before meals. ELIQUIS 5 mg tab(s) Take 1 tablet by mouth twice daily. trimethoprim-polymyxin (POLYTRIM) 10,000 unit- 1 mg/mL ophthalmic solution Use 1 Drop in both eyes four times daily. Do not fill after 12/16/2021. (Patient not taking: Reported on 02/03/2022 ) flecainide (TAMBOCOR) 150 mg tablet Take 1 tablet by mouth every 12 hours. Prescribed by outside damage cutter Losartan-hydroCHLOROthiazide 100-12.5 mg per tablet Take 1 tablet by mouth once daily. simvastatin (ZOCOR) 40 mg tablet Take 1 tablet by mouth daily at bedtime. dilTIAZem CD (CARDIZEM CD) 120 mg 24 hr capsule Take 1 capsule by mouth once daily. carvedilol (COREG) 25 mg tablet Take 25 mg by mouth twice daily. aspirin 81 mg chewable tablet Take 81 mg by mouth once daily. insulin needles, DISPOSABLE, (1ST TIER UNIFINE PENTIPS) 31 gauge x 5/16 ndle 1 Each once daily. DX: E11.9 Insulin: Yes tamsulosin ER (FLOMAX) 0.4 mg cap Take 0.4 mg by mouth once daily. Prescribed by Dr. Daley, Urologist Insulin Syringe-Needle U-100 1/2 mL 29 x 1/2 syrg 1 Each once daily. USE ONE SYRINGE FOR EACH DOSE/1PER DAY, (E11.9, Z79.4) Diabetes mellitus type 2, insulin dependent. Lancets (ACCU-CHEK SOFTCLIX LANCETS) lancets Test blood sugar(s) 1 times daily. Dx: 250.00. Insulin: Yes COMPOUNDED PRESCRIPTION 1 Each twice daily. Accucheck compact test strips, dx-NIDDM Current Facility-Administered Medications Medication Dose Route Frequency perflutren lipid microspheres 1.3 mL in NaCl (PF) 0.9% 10 mL injection (DEFINITY) INTRAVENOUS DIRECTED PRN sodium chloride 0.9 % (flush) 10 mL (BD POSIFLUSH) 10 mL INTRAVENOUS DIRECTED PRN ALLERGIES: ALLERGIES Allergen Reactions Amoxicillin generalized erythema PAST MEDICAL HISTORY Diagnosis Date DIABETES MELLITUS TYPE II UNCONTR UNCOMPL 05/11/2005 Diverticulosis of colon (without mention of hemorrhage) HYPERTENSION NOS 05/11/2005 Low HDL (under 40) 06/09/2011 OBESITY NOS 05/11/2005 Other psoriasis 05/11/2005 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 Stable for years. Sleep apnea 03/31/2009 Pt declined my recs for testing as of 03-25 PAST SURGICAL HISTORY Procedure Laterality Date COLONOSCOPY FLX DX W/COLLJ SPEC WHEN PFRMD 01/12/2010 Colonoscopy COLSC FLX W/REMOVAL LESION BY HOT BX FORCEPS 04/21/15 CYSTOURETHROSCOPY 02/07/2019 Cystoscopy and cystolitholapaxy and laser of bladder stone with evacuation of stone fragments Dr Daley PAST SURGICAL HISTORY OF RIGHT WRIST SURGERY, had repair of fx RPR UMBILICAL HERNIA < 5 YRS REDUCIBLE Hernia repair, umbilical FAMILY HISTORY Problem Relation Age of Onset Heart Father Hypertension Father Cancer Mother Colon Cancer Sister Cancer Sister Colon Cancer Brother Social History Tobacco Use Smoking status: Former Smoker Packs/day: 2.00 Years: 10.00 Pack years: 20.00 Types: Cigarettes Quit date: 09/17/1980 Years since quittin.4 Smokeless tobacco: Never Used Vaping Use Vaping Use: Never used Substance Use Topics Alcohol use: No Drug use: No Reviewed current medications, allergies, past medical history, surgical history, family history andsocial history today. REVIEW OF SYSTEMS All other reviewed and negative other than HPI. HEALTH MAINTENANCE: Reviewed health maintenance issues today and recommended the following in detail. HEPATITIS C SCREENING Never done DEPRESSION SCREENING-. Depression Screening 04/13/2016 04/23/2017 07/16/2018 03/03/2022 PHQ-2 Score 0 0 0 0 Depression screening tool completed and reviewed. Based on score and interview, patient is not at risk for depression. Screening tool discussed with patient, and I recommended no further interventionat this time. ADVANCE DIRECTIVE DISCUSSION -on file. VITALS: BP 124/74 Pulse 78 Wt (!) 136.5 kg (301 lb) SpO2 95% BMI 39.71 kg/m Last 4 Encounter Wt Readings: Date: Wt: 03/03/2022 136.5 kg (301 lb) 01/27/2022 136.6 kg (301 lb 3.2 oz) 12/15/2021 133.8 kg (295 lb) 11/18/2021 137.4 kg (303 lb) PHYSICAL EXAMINATION: General appearance: Well appearing, alert, in no acute distress, well-hydrated, well nourished. Skin: Skin color, texture, turgor normal, no suspicious rashes or lesions Head: Normocephalic, no masses, lesions, tenderness or abnormalities Lungs: Lungs clear to auscultation. No wheezing, rhonchi, rales Heart: RRR without murmur, gallop, or rubs. No ectopy Abdomen: Normal abdominal exam, Abdomen soft, non-tender. Bowel sounds normal. No masses, organomegaly Extremities: No deformities, edema, skin discoloration, clubbing or cyanosis. Good capillary refill. Musculoskeletal: No joint swelling, deformity, or tenderness Peripheral pulses: Normal Neuro: Negative. ASSESSMENT/PLAN: 1. Essential hypertension - ICD9: 401.9, ICD10: I10 (primary diagnosis) - good control - Continue current medication(s) - Goal of BP <130/80 2. Pure hypercholesterolemia - ICD9: 272.0, ICD10: E78.00 - continue labs. 3. Paroxysmal atrial fibrillation (HCC) - ICD9: 427.31, ICD10: I48.0 - continue to see cardiology 4. Type 2 diabetes mellitus with microalbuminuria, with long-term current use of insulin (HCC) - ICD9: 250.40, 791.0, V58.67, ICD10: E11.29, R80.9, Z79.4 Controlled. - Continue current medications - CBC + DIFF - BASIC METABOLIC PNL - HGB A1C 5. Chronic anticoagulation - ICD9: V58.61, ICD10: Z79.01 - stable. 6. Need for hepatitis C screening test - ICD9: V73.89, ICD10: Z11.59 - HEP C AB IA W/CONF SCRN Jeff Virgen RTO in three months and prn. documented in this encounterWright-Patterson Medical Center05-26-2022 Miscellaneous Notes* Telephone Encounter - Jaylene Henley LPN - 02/09/2022 11:36 AM EDT [facility] [address] Chart Copy of medications dispensed to patient for home use February 09, 2022 Physician Initial: MIRANDA Alarcon Medication: Lantus Qty: 5 boxes Directions: Inject 90 units daily. Medications administered, dispensed and verified on the date indicated above Patient has been notified to package pick up medication in Dr. Virgen's office. Jaylene Henley LPN documented in this encounterWright-Patterson Medical Center05-24-2022 Miscellaneous Notes* Telephone Encounter - Kaitlyn Hernández RPh - 02/07/2022 10:17 AM EDT PharmClovis called daughter. She said they were able to get Lantus yesterday, got full box of Lantus for$35 (insurance covered it). PharmClovis spoke with daughter, will plan to apply for Basaglar PAP [facility] [employer] in March at next PharmD appt so patient doesn't have this issue again with [employer]. Kaitlyn Hernández PharmD, [facility] Primary Care Clinical Pharmacist [facility] * Telephone Encounter - Kaitlyn Hernández RP - 02/06/2022 4:01 PM EDT Daughter, Loan, called and said pharmacy can't give her a lee quote on insulins unless they havea prescription. Daughter requesting a prescription for a box of Semglee and Lantus to compare prices. PharmD sent over both scripts with very clear instructions that only 1 of these insulins should be used. Daughter is aware and plans to cancel out the script that she does not plan to use. Daughteragreed to keep me updated on status. Kaitlyn Hernández PharmD, [facility] Primary Care Clinical Pharmacist Lisa Souza [facility] * Telephone Encounter - Kaitlyn Hernández RP - 02/06/2022 2:37 PM EDT PharmD called and spoke with Loan. States patient is in need of 1 Lantus pen (which will last 3 more days). Will be out of insulin tonight. Shipment is today, will receive in 3-5 clinic days. She isvery frustrated because she said she called the office every day last week requesting refill for Lantus but refill didn't get submitted until Sunday and shipment will be today. PharmD informed patient of a Lantus generic called Semglee - can purchase a vial from [employer] with a GoodRx coupon for ~$60. Patient says patient can't afford that. She says that pharmacy can split abox of Lantus but cost per pen is too pricey. Semglee does come in pens, 1 box of 5 pens costs ~$92with GoodRx coupon (~$18/pen). Patient states this would be affordable for patient. PharmD advised her to call pharmacy, see if would be willing to split a box of Semglee so he could purchase 1 pen for ~$18. Daughter agreed to call this afternoon with plans to inform PharmD (PharmD will then send prescription to pharmacy). Patient has issues getting Lantus through [employer]. She has no issues getting Humalog through [employer]. Briefly discussed possibly switching patient from Lantus to Basaglar later this summer so no longer has issues with insulin supply. Daughter thought this would be a good idea so will do paperwork later this summer. PharmD will await daughter's call. Kaitlyn Hernández PharmD, [facility] Primary Care Clinical Pharmacist Kamala LUNSFORD [facility] * Telephone Encounter - Jaylene Henley LPN - 02/06/2022 1:26 PM EDT Spoke with Loan and given number for [employer]. She is also going to check with pharmacy about cost of medication. * Telephone Encounter - GURPREET Murray - 02/06/2022 10:41 AM EDT does not have any vouchers for Lantus that would work with patient insurance. Family could checkwith [employer]([phone]) for short term cost assistance. Negrita will also send note to Diana as Sw noted that patient follows with Kaitlyn in regards to hisdiabetes care and see if she has any short term assistance ideas. * Telephone Encounter - Jaylene Henley LPN - 02/06/2022 10:02 AM EDT Patient daughter states that [employer] sends refill form to our office 1 month ago. Our office is not receiving these forms? Sunday these forms did arrive in our mailbox and were completed as requested.We had processed her refill requests but the daughter feels we did not because [employer] tells her we did not. She is asking if there is any way to get some assistance for them to get a short term fill at pharmacy while waiting on this shipment? * Telephone Encounter - Nisha Wilson - 02/06/2022 8:24 AM EDT Patient's daughter, Loan,calling In regard this request; Refills have been requested for the following medications: insulin glargine (LANTUS SOLOSTAR U-100 INSULIN) 100 unit/mL (3 mL) [Jeff Virgen MD] Preferred pharmacy: [facility] [place] [address] - [address] - [phone] Delivery method: MailD Daughter says patient will be out of the medication tonight. The shipment for this medication does not go out until today so she is asking for a pen that he could have. Please return call to daughter, [phone] documented in this encounterWright-Patterson Medical Center05-20-2022 Instructions* Patient Instructions* Papito Castano V, DO - 02/03/2022 2:02 PM EDT Thank you for choosing the [facility] for your acute care needs. Express Care treats minor infections, rashes and injuries. It is our mission for our patients to be healthy. A primary care relationship with the physician allows for continuity of care, counseling, and maintenance of preventive health care needs. Express Care does not replace the relationship or need for a primary care physician. For information about establishing with a primary care physician or booking an appointment, please call [phone] or speak with any Patient Thermal Intelligence Analyst. Hours: Sunday through Sunday 7:30 am to 7:00 pm. Sunday and Sunday: 8:00 am to 2:30 pm. documented in this encounterWright-Patterson Medical Center05-20-2022 History of Present illness Narrative* Papito Castano V, DO - 02/03/2022 1:59 PM EDT SUBJECTIVE: Faisal Alarcon is a 76 year old male who is here for a right calf injury. It occurred 1 week ago today when he was climbing onto his riding lawnmower and felt a pop in the back of his calf followedby pain. Symptoms include swelling and bruising of the calf and leg. [facility]. 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 Stable for years. Sleep apnea 03/31/2009 Pt declined my recs for testing as of 03-25 PAST SURGICAL HISTORY Procedure Laterality Date COLONOSCOPY FLX DX W/COLLJ SPEC WHEN PFRMD 01/12/2010 Colonoscopy COLSC FLX W/REMOVAL LESION BY HOT BX FORCEPS 04/21/15 CYSTOURETHROSCOPY 02/07/2019 Cystoscopy and cystolitholapaxy and laser of bladder stone with evacuation of stone fragments Dr Daley PAST SURGICAL HISTORY OF RIGHT WRIST SURGERY, had repair of fx RPR UMBILICAL HERNIA < 5 YRS REDUCIBLE Hernia repair, umbilical Current Outpatient Medications on File Prior to Visit Medication Sig insulin glargine (LANTUS SOLOSTAR U-100 INSULIN) 100 unit/mL (3 mL) Inject 90 Units subcutaneously daily at bedtime. colestipol (COLESTID) 1 gram tablet Take 1 tablet by mouth every other day. insulin lispro (HUMALOG KWIKPEN INSULIN) 100 unit/mL Inject 26 Units subcutaneously three times daily before meals. finasteride (PROSCAR) 5 mg tablet metFORMIN ER (GLUCOPHAGE XR) 500 mg 24 hr tablet Take 2 tablets by mouth twice daily before meals. ELIQUIS 5 mg tab(s) Take 1 tablet by mouth twice daily. flecainide (TAMBOCOR) 150 mg tablet Take 1 tablet by mouth every 12 hours. Prescribed by outside damage cutter Losartan-hydroCHLOROthiazide 100-12.5 mg per tablet Take 1 tablet by mouth once daily. simvastatin (ZOCOR) 40 mg tablet Take 1 tablet by mouth daily at bedtime. dilTIAZem CD (CARDIZEM CD) 120 mg 24 hr capsule Take 1 capsule by mouth once daily. carvedilol (COREG) 25 mg tablet Take 25 mg by mouth twice daily. aspirin 81 mg chewable tablet Take 81 mg by mouth once daily. tamsulosin ER (FLOMAX) 0.4 mg cap Take 0.4 mg by mouth once daily. Prescribed by Dr. Daley, Urologist trimethoprim-polymyxin (POLYTRIM) 10,000 unit- 1 mg/mL ophthalmic solution Use 1 Drop in both eyes four times daily. Do not fill after 12/16/2021. (Patient not taking: Reported on 02/03/2022 ) flecainide (TAMBOCOR) 150 mg tablet Take 150 mg by mouth twice daily. insulin needles, DISPOSABLE, (1ST TIER UNIFINE PENTIPS) 31 gauge x 5/16 ndle 1 Each once daily. DX: E11.9 Insulin: Yes Insulin Syringe-Needle U-100 1/2 mL 29 x 1/2 syrg 1 Each once daily. USE ONE SYRINGE FOR EACH DOSE/1PER DAY, (E11.9, Z79.4) Diabetes mellitus type 2, insulin dependent. Lancets (ACCU-CHEK SOFTCLIX LANCETS) lancets Test blood sugar(s) 1 times daily. Dx: 250.00. Insulin: Yes COMPOUNDED PRESCRIPTION 1 Each twice daily. Accucheck compact test strips, dx-NIDDM Current Facility-Administered Medications on File Prior to Visit Medication perflutren lipid microspheres 1.3 mL in NaCl (PF) 0.9% 10 mL injection (DEFINITY) sodium chloride 0.9 % (flush) 10 mL (BD POSIFLUSH) Social History Tobacco Use Smoking status: Former Smoker Packs/day: 2.00 Years: 10.00 Pack years: 20.00 Types: Cigarettes Quit date: 09/17/1980 Years since quittin.4 Smokeless tobacco: Never Used Vaping Use Vaping Use: Never used Substance Use Topics Alcohol use: No Drug use: No EXAM: General: cooperative and NAD Location: Right leg: Ecchymosis and swelling along the calf region with tenderness over the medial head of the gastrocnemius muscle. No significant palpable deficit in the Achilles tendon. Patient isable to dorsiflex and plantarflex against resistance. IMPRESSION: Medial head gastrocnemius muscle tear right leg PLAN: Contrast treatment with alternating ice and heat 2-3 times per day Continue with ankle range of motion exercises, elevation, and compression wrapping Patient is referred for physical therapy to started about 2 weeks once he has had a chance to allowfor some healing to occur Recheck in 2 weeks Discussed risk of compartment syndrome and DVT from this type of injury. Patient is on Eliquis for anticoagulation and is recommended to continue on that as ordered. Papito Castano DO * Jimena Upton Ma - 02/03/2022 1:35 PM EDT AMB ROOMING INTAKE FLOWSHEET DATA Pain Pain Level: (unable to rate) Pain Location: Leg-Right Description: Aching, Sharp Duration Amount of Time: 1 Duration Units: Weeks Frequency: Continuous Intervention/Comfort measure: Medication documented in this encounterWright-Patterson Medical Center05-18-2022 Miscellaneous Notes* Telephone Encounter - Tammy Davies LPN - 02/01/2022 10:28 AM EDT Patient daughter Loan calling asking for refill on father Lantus insulin 90 day supply from Patient assistance with [employer]. Yesterday request was not sent correctly. She said gets faxed to [employer]. The Insulin gets mailed to his home. She did not have the fax number, she gave me phone number for [employer] [phone]. Father has 4 days Lantus left. Please advise documented in this encounterWright-Patterson Medical Center05-17-2022 Miscellaneous Notes* Telephone Encounter - Janet King Ma - 01/31/2022 4:54 PM EDT ALFA 11/21/21 NOV 03/03/22 Has pending labs due before next appt Being sent to mail order pahrmacy * Telephone Encounter - Radha Herbert - 01/31/2022 4:44 PM EDT Patient has been identified by name and date of : Yes Pending Prescriptions Disp Refills LANTUS SOLOSTAR U-100 INSULIN 100 UNIT/ML (3 ML) SUBCUTANEOUS PEN 27 Pen 1 Sig: Inject 90 Units subcutaneously daily at bedtime. JANET: No RX INSTRUCTIONS: Patient aware RX will be sent to pharmacy. No need to notify patient. Radha Frey Pss documented in this encounterWright-Patterson Medical Center05-13-2022 History of Present illness Narrative* Saad Park APRN.MANAGER OF APPLICATIONS DEVELOPMENT - 01/27/2022 3:27 PM EDT Images from the original note were not included. 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 This started today. Has tried nothing for relief. Symptoms are worsened by walking. Denies numbness/tingling of right lower extremity. 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 Stable for years. Sleep apnea 03/31/2009 Pt declined my recs for testing as of 03-25 PAST SURGICAL HISTORY Procedure Laterality Date COLONOSCOPY FLX DX W/COLLJ SPEC WHEN PFRMD 01/12/2010 Colonoscopy COLSC FLX W/REMOVAL LESION BY HOT BX FORCEPS 04/21/15 CYSTOURETHROSCOPY 02/07/2019 Cystoscopy and cystolitholapaxy and laser of bladder stone with evacuation of stone fragments Dr Daley PAST SURGICAL HISTORY OF RIGHT WRIST SURGERY, had repair of fx RPR UMBILICAL HERNIA < 5 YRS REDUCIBLE Hernia repair, umbilical ALLERGIES Amoxicillin MEDICATIONS colestipol (COLESTID) 1 gram tablet Take 1 tablet by mouth every other day. insulin lispro (HUMALOG KWIKPEN INSULIN) 100 unit/mL Inject 26 Units subcutaneously three times daily before meals. finasteride (PROSCAR) 5 mg tablet metFORMIN ER (GLUCOPHAGE XR) 500 mg 24 hr tablet Take 2 tablets by mouth twice daily before meals. ELIQUIS 5 mg tab(s) Take 1 tablet by mouth twice daily. trimethoprim-polymyxin (POLYTRIM) 10,000 unit- 1 mg/mL ophthalmic solution Use 1 Drop in both eyes four times daily. Do not fill after 12/16/2021. flecainide (TAMBOCOR) 150 mg tablet Take 150 mg by mouth twice daily. flecainide (TAMBOCOR) 150 mg tablet Take 1 tablet by mouth every 12 hours. Prescribed by outside damage cutter insulin glargine (LANTUS SOLOSTAR U-100 INSULIN) 100 unit/mL (3 mL) Inject 90 Units subcutaneously daily at bedtime. Losartan-hydroCHLOROthiazide 100-12.5 mg per tablet Take 1 tablet by mouth once daily. simvastatin (ZOCOR) 40 mg tablet Take 1 tablet by mouth daily at bedtime. dilTIAZem CD (CARDIZEM CD) 120 mg 24 hr capsule Take 1 capsule by mouth once daily. carvedilol (COREG) 25 mg tablet Take 25 mg by mouth twice daily. aspirin 81 mg chewable tablet Take 81 mg by mouth once daily. insulin needles, DISPOSABLE, (1ST TIER UNIFINE PENTIPS) 31 gauge x 5/16 ndle 1 Each once daily. DX: E11.9 Insulin: Yes tamsulosin ER (FLOMAX) 0.4 mg cap Take 0.4 mg by mouth once daily. Prescribed by Dr. Daley, Urologist Insulin Syringe-Needle U-100 1/2 mL 29 x 1/2 syrg 1 Each once daily. USE ONE SYRINGE FOR EACH DOSE/1PER DAY, (E11.9, Z79.4) Diabetes mellitus type 2, insulin dependent. Lancets (ACCU-CHEK SOFTCLIX LANCETS) lancets Test blood sugar(s) 1 times daily. Dx: 250.00. Insulin: Yes COMPOUNDED PRESCRIPTION 1 Each twice daily. Accucheck compact test strips, dx-NIDDM FAMILY HISTORY Problem Relation Age of Onset Heart Father Hypertension Father Cancer Mother Colon Cancer Sister Cancer Sister Colon Cancer Brother Social History Tobacco Use Smoking status: Former Smoker Packs/day: 2.00 Years: 10.00 Pack years: 20.00 Types: Cigarettes Quit date: 09/17/1980 Years since quittin.3 Smokeless tobacco: Never Used Substance Use Topics Alcohol use: No Drug use: No ROS Objective Blood pressure 128/74, pulse 85, temperature 36.6 C (97.9 F), temperature source Tympanic, resp. rate 18, weight (!) 136.6 kg (301 lb 3.2 oz), SpO2 95 %. Physical Exam Constitutional: General: He is not in acute distress. Appearance: He is not toxic-appearing or diaphoretic. HENT: Head: Normocephalic and atraumatic. Cardiovascular: Pulses: Dorsalis pedis pulses are 1+ on the right side. Posterior tibial pulses are 1+ on the right side. Pulmonary: Effort: Pulmonary effort is normal. No accessory muscle usage or respiratory distress. Musculoskeletal: Right knee: Normal. Right lower leg: Tenderness present. No swelling, deformity, lacerations or bony tenderness. No edema. Right ankle: Normal. Legs: Neurological: Mental Status: He is alert and oriented to person, place, and time. ASSESSMENT/PLAN: 1. Strain of calf muscle, right, initial encounter - ICD9: 844.8, ICD10: S86.811A Compression applied/tim Pain relief and rest discussed Has a walking boot at home can try for comfort. F/u for worsening symptoms Has walker at home advised to use. - CONSULT TO ORTHOPAEDICS - Agrees to plan Saad Park APRN.CNP documented in this encounterW[facility]04-28-[facility]22 Miscellaneous Notes* Telephone Encounter - Kaitlyn Hernández RPh - 01/12/2022 3:09 PM EDT During PharmD visit for DM today, patient's daughter reported patient needs a refill of colestipol.Refill order pended for PCP signature if appropriate. Pending Prescriptions Disp Refills COLESTIPOL 1 GRAM TABLET 60 tablet 5 Sig: Take 1 tablet by mouth twice daily. JANET: No Kaitlyn Hernández RPh documented in this encounterWright-Patterson [facility]04-28-2022 History of Present illness Narrative* Kaitlyn Hernández RPh - 01/12/2022 2:00 PM EDT Primary Care Pharmacy Visit CC (Reason for Consult): Diabetes Goal: A1c < 7% Collaborating Provider: Dr. Virgen Last Provider Visit: 11/21/21 Faisal Alarcon is a 76 year old male presenting for follow up visit in person. Patient consents to pharmacy collaborative practice agreement. . Patient is presenting today for f/up pharmacotherapy management appointment for diabetes. At PharmDvisit on 09/01, mealtime insulin was increased and dietary modifications recommended (particularly reviewing nutrition labels and trying to limit carb intake). PharmD also mailed patient's daughter, Loan Brooks, the PAP applications for Lantus, Eliquis, and Humalog. On 09/19 patient went to urgent care for severe abdominal pain from coughing - he was referred to ED for evaluation. Diagnosed with COVID pneumonia, spent a night at the hospital and was given steroids. Patient was advised to stay off metformin for [address] dye leaves system. Daughter called office yesterday to inform of elevated BGs. PCP increased mealtime insulin by 3 units. At PharmD visit on 09/22, BGs were very elevated as a result of steroids but PCP had just made med changes and metformin was restarted so no med changes were made. At PharmD visit on 11/03, Lantus was increased. At last PCP appt on 11/18, no med changesmade. At last PharmD visit on 12/15, PAP was started for Jardiance and daughter expressed interest in CGM. Subjective: HPI: Daughter called insurance, they would only cover 80% of CGM which is not affordable. Daughter is going to try to get him qualified for Medicaid, hopefully he would qualify. If qualifies, she would like to see if patient can get a CGM at this time. Daughter stated she talked with urologist about SGLT2i, said it would be OK to try. Patient not interested in trying new medication at this time. Feels his energy level is not great. Gets a lot of SOB because of A fib. Has some dry mouth occasionally. Waking up once at night to urinate. Was waking up every 2-3 hours prior to surgery. No new orworsening tingling/numbness of hands or feet. Not checking feet. Daughter gives him pedicure monthly Checking BP at home. Daughter states home readings are running a little high (in the 140s). Uses anarm cuff. Gets checked every 3 weeks. Patient stepped out of room to use the bathroom. Daughter informed PharmD that patient had really changed his eating habits because of money issues. Stopped eating out so much and instead is buying alot of cheap processed foods. She thinks she can help him to eat better and plans to talk to him after visit. Current DM Medications: Metformin ER 500mg tabs - 1000mg BID Insulin glargine (Lantus) 90 units daily at bedtime (takes 2 injections of 45 units) Insulin lispro (Humalog) 26 units TIDCC Past DM Medications: Trulicity 0.75mg - GI issues (d/c'd in January 2019) GLYCEMIC CONTROL: Glucometer present at visit: Yes SMBG s: 14 day average: 152 mg/dL; 30 day average: 162 mg/dL Date Fasting AM 2 hr PP Before Lunch 2 hr PP Before Dinner 2 hr PP Bedtime 01/12 184 01/11 163 01/10 175 01/07 240 01/06 131 01/05 145 01/04 130 01/02 114 01/01 112 12/31 167 12/30 115 12/29 135 155 Hypoglycemia: none Preventative Medications: On TIM/ARB: Yes On Statin: Yes ROS: Patient denies CP, SOB, THAYER, blurred vision, dizziness or lightheadedness Patient denies symptoms of hypoglycemia (sweating, anxiety, palpitations, hunger, and tremor) Patient denies symptoms of hyperglycemia (polyuria, polydipsia, polyphagia) Patient denies potential medication adverse effects DIET/EXERCISE/SOCIAL Hx: Sometimes gets a very early AM snack when wakes up Breakfast: 2 waffles and muñoz sandwich (2 slices bread) Lunch: can chicken noodle soup Snack: toast (2 slices) with butter Dinner: 1 baked potato with butter and muñoz bits, cup of coffee Snack: pretzels with peanut butter (eats a handful); Cheetos occasionally Beverages: coffee with milk and caffeine free diet coke; maybe has 1 glass of water per day (with meds) Exercise: not physically active MEDICATIONS: Pill bottles are not present Adherence: denies missed doses Pharmacy: [facility] Rx coverage: [employer] Affordability: Gets Eliquis, Humalog, and [employer] through PAPs Diabetes supplies: [employer] System: daughter sets up pill box, 2 weeks at a time ACTIVE PROBLEM LIST Other Psoriasis Essential Hypertension Obesity, Unspecified 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) Pure Hypercholesterolemia Intervertebral Lumbar Disc Disorder With Myelopathy, Lumbar Region Sleep Apnea Nonspecific Abnormal Results of Liver Function Study Blind One Eye Low Hdl (Under 40) Tubular Adenoma of Colon Schizophrenia, Chronic Condition (Hcc) Obesity, Class II, Bmi 35-39.9 Paroxysmal Atrial Fibrillation (Hcc) Chronic Anticoagulation PAST MEDICAL HISTORY Diagnosis Date DIABETES MELLITUS TYPE II UNCONTR UNCOMPL 05/11/2005 Diverticulosis of colon (without mention of hemorrhage) HYPERTENSION NOS 05/11/2005 Low HDL (under 40) 06/09/2011 OBESITY NOS 05/11/2005 Other psoriasis 05/11/2005 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 Stable for years. Sleep apnea 03/31/2009 Pt declined my recs for testing as of 03-25 Past medical, family and social history reviewed and updated. ALLERGIES Allergen Reactions Amoxicillin generalized erythema Medication List Medication Directions Comments Action/Plan aspirin 81 mg chewable tablet Take 81 mg by mouth once daily. carvedilol (COREG) 25 mg tablet Take 25 mg by mouth twice daily. colestipol (COLESTID) 1 gram tablet Take 1 tablet by mouth twice daily. Patient taking differently: Take 1 g by mouth every other day. COMPOUNDED PRESCRIPTION 1 Each twice daily. Accucheck compact test strips, dx-NIDDM dilTIAZem CD (CARDIZEM CD) 120 mg 24 hr capsule Take 1 capsule by mouth once daily. ELIQUIS 5 mg tab(s) Take 1 tablet by mouth twice daily. finasteride (PROSCAR) 5 mg tablet None Entered flecainide (TAMBOCOR) 150 mg tablet Take 1 tablet by mouth every 12 hours. Prescribed by outside damage cutter flecainide (TAMBOCOR) 150 mg tablet Take 150 mg by mouth twice daily. insulin glargine (LANTUS SOLOSTAR U-100 INSULIN) 100 unit/mL (3 mL) Inject 90 Units subcutaneously daily at bedtime. insulin lispro (HUMALOG KWIKPEN INSULIN) 100 unit/mL Inject 26 Units subcutaneously three times daily before meals. insulin needles, DISPOSABLE, (1ST TIER UNIFINE PENTIPS) 31 gauge x 5/16 ndle 1 Each once daily. DX: E11.9 Insulin: Yes Insulin Syringe-Needle U-100 1/2 mL 29 x 1/2 syrg 1 Each once daily. USE ONE SYRINGE FOR EACH DOSE/1PER DAY, (E11.9, Z79.4) Diabetes mellitus type 2, insulin dependent. Lancets (ACCU-CHEK SOFTCLIX LANCETS) lancets Test blood sugar(s) 1 times daily. Dx: 250.00. Insulin: Yes Losartan-hydroCHLOROthiazide 100-12.5 mg per tablet Take 1 tablet by mouth once daily. metFORMIN ER (GLUCOPHAGE XR) 500 mg 24 hr tablet Take 2 tablets by mouth twice daily before meals. simvastatin (ZOCOR) 40 mg tablet Take 1 tablet by mouth daily at bedtime. tamsulosin ER (FLOMAX) 0.4 mg cap Take 0.4 mg by mouth once daily. Prescribed by Dr. Daley, Urologist trimethoprim-polymyxin (POLYTRIM) 10,000 unit- 1 mg/mL ophthalmic solution Use 1 Drop in both eyes four times daily. Do not fill after 12/16/2021. Objective: Exam: VITALS: BP 132/75 Pulse 74 Last 3 Encounter BP Readings: Date: BP: 11/21/2021 124/70 11/18/2021 130/76 11/03/2021 126/72 Wt: 133.8 kg (295 lb) BMI: 38.92 kg/(m^2) LABS: Reviewed Lab Results Component Value Date HBA1C 8.1 11/14/2021 HBA1C 8.6 08/16/2021 HBA1C 8.6 07/28/2021 HBA1C 8.8 05/03/2021 CMP: Glucose 171 11/18/2021 BUN 13 11/18/2021 Creatinine 1.04 11/18/2021 Sodium 138 11/18/2021 Potassium 4.7 11/18/2021 Chloride 102 11/18/2021 CO2 24 11/18/2021 Protein, Total 6.9 08/16/2021 Albumin 3.9 08/16/2021 Calcium 9.4 11/18/2021 Alkaline Phosphatase 86 08/16/2021 Bilirubin, Total 0.3 08/16/2021 AST 19 08/16/2021 ALT 17 08/16/2021 eGFR 74 (per BMP on 11/18/21) Lab Results Component Value Date CHOL 115 08/16/2021 LDL 53 08/16/2021 HDL 36 08/16/2021 TG 130 08/16/2021 The ASCVD Risk score (Lucian PÉREZ Jr., et al., 2013) failed to calculate for the following reasons: The valid total cholesterol range is 130 to 320 mg/dL Albumin/Creat Ratio (mg/g) Date Value 08/16/2021 231 (H) PHARMACOTHERAPY ASSESSMENT/PLAN: 1. Type 2 diabetes mellitus without complication, with long-term current use of insulin (HCC) - ICD9: 250.00, V58.67, ICD10: E11.9, Z79.4 A1c goal < 7%; uncontrolled (last A1c 8.1%); SMBGs are minimal though most are <200 mg/dL; patient's diet is very high in carbs with little nutritional value - hardly any vegetables or protein;patient very hesitant for medication changes; discuss starting an SGLT2i for BG/weight reduction and kidney protection, also discussed increasing insulin but patient refused at this time; patient prefers to work on lifestyle modifications; therefore no med changes today at patient's request; will f/up after next PCP appt and labwork; renal fxn and LFTs sufficient for use CONTINUE metformin ER 1000mg BID, Lantus 90 units nightly, and Humalog 26 units TIDAC Educated on dietary modifications Try to limit to 30-45g of carbs/meal Eat more protein, vegetables Drink more water If eating canned fruit, get fruit in JUICE instead of syrup Discussed importance of DM control on overall health and importance for reducing complications Counseled on preventative foot health, advised to check feet daily HbA1c: due 02/11 Patient requesting refill of colestipol - will send refill request to PCP. Patient is scheduled to see PCP on 03/03. Patient to have PharmD f/u on 03/23. Patient verbalized understanding of instructions. Kaitlyn Hernández PharmD, [facility] Primary Care Clinical Pharmacist Lisa Souza [facility] The majority of the pharmacy visit (> 50%) was spent counseling and/or coordinating care for thepatient. interaction: face to face time was 35 minutes. documented in this encounterWright-Pat[facility]04-28-2022 Instructions* Patient Instructions* Kaitlyn Hernández RPh - 01/12/2022 2:00 PM EDT Try to limit your carbohydrate intake to 30-45g per meal. Try to eat more eggs and less waffles and toast for breakfast. Eat more protein with lunch and dinner. Eat lean meat, cheeses, nuts, etc. Try to incorporate more vegetables into your diet. It is OK to eat fruit. If eating canned fruit, get fruit in JUICE, NOT syrup. Ideas for snacks: Unsalted nuts Cottage cheese with nuts 1 slice toast with cheese or a nut butter Apple with cheese or nut butter DRINK MORE WATER documented in this encounterWright-Pat[facility]04-18-2022 Miscellaneous Notes* Telephone Encounter - Kaitlyn Hernández RPh - 01/02/2022 2:42 PM EDT [facility] called [facility] ([phone]) and spoke with a helpful branch service representative. She stated patient is due to have a shipment tomorrow. Packaging Specialist changed the delivery information so this shipment will be shipped to patient's home. PharmD called patient's daughter, Loan, and informed of the above information. Kaitlyn Hernández PharmD, [facility] Primary Care Clinical Pharmacist Lisa Souza [facility] * Telephone Encounter - Denisha Shepard APRN.CNP - 12/30/2021 5:51 PM EDT Is this something that can be done, or does it need to come here? * Telephone Encounter - Nisha Wilson - 12/30/2021 12:05 PM EDT Patient's daughter calling regarding patient's request for medicationi rebelulin lispro (HUMALOG KWIKPEN INSULIN) 100 unit/mL . Daughter, Loan says the medication is shipped by [facility], . Medication is being sent to [facility] instead of patient's home. Daughter is asking for this to be changed to being delivered to patient's home. Please return call to Loan ([phone]) when corrected. documented in this encounterWright-[facility]04-14-2022 Miscellaneous Notes* Telephone Encounter - Leslie Herbert - 12/29/2021 3:38 PM EDT Patient has been identified by name and date of : Yes Pending Prescriptions Disp Refills INSULIN LISPRO (U-100) 100 UNIT/ML SUBCUTANEOUS PEN 5 Pen 1 Sig: Inject 26 Units subcutaneously three times daily before meals. JANET: No RX INSTRUCTIONS: Patient aware RX escripted to mail away pharmacy. No need to notify patient. Leslie Herbert documented in this encounterWright-Pat[facility]04-14-2022 Miscellaneous Notes* Telephone Encounter - Janet King Ma - 12/29/2021 3:12 PM EDT refaxed to [facility] * Telephone Encounter - Julianna Lynn LPN - 12/13/2021 4:13 PM EDT Faxed to number provided. * Telephone Encounter - Jeff Virgen MD - 12/13/2021 4:02 PM EDT done * Telephone Encounter - Lila Mandel Ma - 12/13/2021 3:57 PM EDT Please print/sign rx and than fax to [facility] Lila Mandel Ma * Telephone Encounter - Grace Greene - 12/13/2021 3:45 PM EDT Faisal Alarcon's daughter is calling Jeff Virgen MD office today requesting a corrected script for Humalog is sent to [facility]. The last script sent was for 16 units and not 26 units. He is going to run out of insulin Please advise insulin lispro (HUMALOG KWIKPEN INSULIN) 100 unit/mL 5 Pen 1 11/03/2021 Sig: Inject 26 Units subcutaneously three times daily before meals. Class: Med Update Route: SUBCUTANEOUS documented in this encounterWright-Patterson [facility] Center03-31-2022 Miscellaneous Notes* Telephone Encounter - Janet King Ma - 12/15/2021 6:02 PM EDT PCP portion signed and returned to PharmD * Telephone Encounter - Kaitlyn Hernández RPh - 12/15/2021 3:12 PM EDT PharmD started PAP application for Jardiance today. Domenico completed by patient, only requires PCP signature. Domenico placed on PCP's desk for signature with instructions to return to PharmD office. Other portion of domenico is saved in PharmD file cabinet. Will plan to wait until patient's daughter, Loan, returns call regarding their decision to officially pursue Jardiance PAP (they plan to discuss with patient's urologist - can see PharmD note from 12/15 for details). Kaitlyn Hernández PharmD, BCPS Primary Care Clinical Pharmacist Lisa Souza [facility] documented in this encounterWright-Patterson [facility] Center05-17-2021 History of Past illness Narrative* Problem Noted Date Resolved Date SOB (shortness of breath) 01/31/20212020 Abnormal EKG 01/31/2021 05/06/2021 Sciatica 06/15/2005 05/06/2021 Paranoid schizophrenia, subc hronic condition with acute exacerbation 05/11/2005 04/23/2017 documented as of this encounter (statuses as of 12/12/2021) [address]17-2021 History of Past illness Narrative* Problem Noted Date Resolved Date SOB (shortness of breath) 01/31/20212020 Abnormal EKG 01/31/2021 05/06/2021 Sciatica 06/15/2005 05/06/2021 Paranoid schizophrenia, subc hronic condition with acute exacerbation 05/11/2005 04/23/2017 documented as of this encounter (statuses as of 12/15/2021) [address]17-2021 History of Past illness Narrative* Problem Noted Date Resolved Date SOB (shortness of breath) 01/31/20212020 Abnormal EKG 01/31/2021 05/06/2021 Sciatica 06/15/2005 05/06/2021 Paranoid schizophrenia, subc hronic condition with acute exacerbation 05/11/2005 04/23/2017 documented as of this encounter (statuses as of 12/29/2021) [address]17-2021 History of Past illness Narrative* Problem Noted Date Resolved Date SOB (shortness of breath) 01/31/20212020 Abnormal EKG 01/31/2021 05/06/2021 Sciatica 06/15/2005 05/06/2021 Paranoid schizophrenia, subc hronic condition with acute exacerbation 05/11/2005 04/23/2017 documented as of this encounter (statuses as of 01/02/2022) [address]17-2021 History of Past illness Narrative* Problem Noted Date Resolved Date SOB (shortness of breath) 01/31/20212020 Abnormal EKG 01/31/2021 05/06/2021 Sciatica 06/15/2005 05/06/2021 Paranoid schizophrenia, subc hronic condition with acute exacerbation 05/11/2005 04/23/2017 documented as of this encounter (statuses as of 01/12/2022) [facility] Narrative* Problem Noted Date Resolved Date SOB (shortness of breath) 01/31/20212020 Abnormal EKG 01/31/2021 05/06/2021 Sciatica 06/15/2005 05/06/2021 Paranoid schizophrenia, subc hronic condition with acute exacerbation 05/11/2005 04/23/2017 documented as of this encounter (statuses as of 01/12/2022) [facility] of [facility] illness Narrative* Problem Noted Date Resolved Date SOB (shortness of breath) 01/31/20212020 Abnormal EKG 01/31/2021 05/06/2021 Sciatica 06/15/2005 05/06/2021 Paranoid schizophrenia, subc hronic condition with acute exacerbation 05/11/2005 04/23/2017 documented as of this encounter (statuses as of 01/27/2022) [facility] Narrative* Problem Noted Date Resolved Date SOB (shortness of breath) 01/31/20212020 Abnormal EKG 01/31/2021 05/06/2021 Sciatica 06/15/2005 05/06/2021 Paranoid schizophrenia, subc hronic condition with acute exacerbation 05/11/2005 04/23/2017 documented as of this encounter (statuses as of 01/31/2022) [facility] illness Narrative* Problem Noted Date Resolved Date SOB (shortness of breath) 01/31/20212020 Abnormal EKG 01/31/2021 05/06/2021 Sciatica 06/15/2005 05/06/2021 Paranoid schizophrenia, subc hronic condition with acute exacerbation 05/11/2005 04/23/2017 documented as of this encounter (statuses as of 02/01/2022) [address]17-2021 History of Past illness Narrative* Problem Noted Date Resolved Date SOB (shortness of breath) 01/31/20212020 Abnormal EKG 01/31/2021 05/06/2021 Sciatica 06/15/2005 05/06/2021 Paranoid schizophrenia, subc hronic condition with acute exacerbation 05/11/2005 04/23/2017 documented as of this encounter (statuses as of 02/02/2022) [address]17-2021 History of Past illness Narrative* Problem Noted Date Resolved Date SOB (shortness of breath) 01/31/20212020 Abnormal EKG 01/31/2021 05/06/2021 Sciatica 06/15/2005 05/06/2021 Paranoid schizophrenia, subc hronic condition with acute exacerbation 05/11/2005 04/23/2017 documented as of this encounter (statuses as of 02/03/2022) [facility] Narrative* Problem Noted Date Resolved Date SOB (shortness of breath) 01/31/20212020 Abnormal EKG 01/31/2021 05/06/2021 Sciatica 06/15/2005 05/06/2021 Paranoid schizophrenia, subc hronic condition with acute exacerbation 05/11/2005 04/23/2017 documented as of this encounter (statuses as of 02/07/2022) [facility] Narrative* Problem Noted Date Resolved Date SOB (shortness of breath) 01/31/20212020 Abnormal EKG 01/31/2021 05/06/2021 Sciatica 06/15/2005 05/06/2021 Paranoid schizophrenia, subc hronic condition with acute exacerbation 05/11/2005 04/23/2017 documented as of this encounter (statuses as of 02/09/2022) [facility] Narrative* Problem Noted Date Resolved Date SOB (shortness of breath) 01/31/20212020 Abnormal EKG 01/31/2021 05/06/2021 Nonspecific abnormal results of liver function s andrewdy 03/31/2009 03/03/2022 Overview: ALT 57 in 02-22, 83 in 09-25, 75 in 03-25 Clarify when Crestor started as labs first abnl on 09-19-08 US 03-25: multiple, small GS with no GB wall thickening, liver with fatty infiltration Sciatica 06/15/2005 05/06/2021 Paranoid schizophrenia, subc hronic condition with acute exacerbation 05/11/2005 04/23/2017 documented as of this encounter (statuses as of 03/03/2022) [facility] Narrative* Problem Noted Date Resolved Date SOB (shortness of breath) 01/31/20212020 Abnormal EKG 01/31/2021 05/06/2021 Nonspecific abnormal results of liver function s dy 03/31/2009 03/03/2022 Overview: ALT 57 in 6-08, 83 in 1-09, 75 in 7- Clarify when Crestor started as labs first abnl on 09-19-08 US 7: multiple, small GS with no GB wall thickening, liver with fatty infiltration Sciatica 06/15/2005 05/06/2021 Paranoid schizophrenia, subc hronic condition with acute exacerbation 05/11/2005 04/23/2017 documented as of this encounter (statuses as of 03/06/2022) [facility] Narrative* Problem Noted Date Resolved Date SOB (shortness of breath) 01/31/20212020 Abnormal EKG 01/31/2021 05/06/2021 Nonspecific abnormal results of liver function s dy 03/31/2009 03/03/2022 Overview: ALT 57 in 6-08, 83 in -, 75 in - Clarify when Crestor started as labs first abnl on 09-19-08 US 7: multiple, small GS with no GB wall thickening, liver with fatty infiltration Sciatica 06/15/2005 05/06/2021 Paranoid schizophrenia, subc hronic condition with acute exacerbation 05/11/2005 04/23/2017 documented as of this encounter (statuses as of 03/06/2022) [facility]05-17-2021 History of Past illness Narrative* Problem Noted Date Resolved Date SOB (shortness of breath) 01/31/20212020 Abnormal EKG 01/31/2021 05/06/2021 Nonspecific abnormal results of liver function s [facility] 03/31/2009 03/03/2022 Overview: ALT 57 in 6-08, 83 in 09-25, 75 in 03-25 Clarify when [facility] started as labs first abnl on 09-19-08 US 03-25: multiple, small GS with no GB wall thickening, liver with fatty infiltration Sciatica 06/15/2005 05/06/2021 Paranoid schizophrenia, subc hronic condition with acute exacerbation 05/11/2005 04/23/2017 documented as of this encounter (statuses as of 03/23/2022) [facility]05[facility]21 History of Past illness Narrative* Problem Noted Date Resolved Date SOB (shortness of breath) 01/31/20212020 Abnormal EKG 01/31/2021 05/06/2021 Nonspecific abnormal results of liver function s [facility] 03/31/2009 03/03/2022 Overview: ALT 57 in 6-08, 83 in 09-25, 75 in 03-25 Clarify when [facility] started as labs first abnl on 09-19-08 03-25: multiple, small GS with no GB wall thickening, liver with fatty infiltration Sciatica 06/15/2005 05/06/2021 Paranoid schizophrenia, subc hronic condition with acute exacerbation 05/11/2005 04/23/2017 documented as of this encounter (statuses as of 03/23/2022) [facility]21 History of Past illness Narrative* Problem Noted Date Resolved Date SOB (shortness of breath) 01/31/20212020 Abnormal EKG 01/31/2021 05/06/2021 Nonspecific abnormal results of liver function s dy 03/31/2009 03/03/2022 Overview: ALT 57 in 6-08, 83 in 09-25, 75 in 03-25 Clarify when C[facility] started as labs first abnl on 09-19-08 US 03-25: multiple, small GS with no GB wall thickening, liver with fatty infiltration Sciatica 06/15/2005 05/06/2021 Paranoid schizophrenia, subc hronic condition with acute exacerbation 05/11/2005 04/23/2017 documented as of this encounter (statuses as of 04/08/2022) [facility]21 History of Past illness Narrative* Problem Noted Date Resolved Date SOB (shortness of breath) 01/31/20212020 Abnormal EKG 01/31/2021 05/06/2021 Nonspecific abnormal results of liver function s dy 03/31/2009 03/03/2022 Overview: ALT 57 in 6-08, 83 in -, 75 in - Clarify when [facility] started as labs first abnl on 09-19-08 US 03-25: multiple, small GS with no GB wall thickening, liver with fatty infiltration Sciatica 06/15/2005 05/06/2021 Paranoid schizophrenia, subc hronic condition with acute exacerbation 05/11/2005 04/23/2017 documented as of this encounter (statuses as of 05/08/2022) [facility] History of Past illness Narrative* Problem Noted Date Resolved Date SOB (shortness of breath) 01/31/20212020 Abnormal EKG 01/31/2021 05/06/2021 Nonspecific abnormal results of liver function s dy 03/31/2009 03/03/2022 Overview: ALT 57 in 6-08, 83 in 09-25, 75 in - Clarify when [facility] started as labs first abnl on 09-19-08 US 7: multiple, small GS with no GB wall thickening, liver with fatty infiltration Sciatica 06/15/2005 05/06/2021 Paranoid schizophrenia, subc hronic condition with acute exacerbation 05/11/2005 04/23/2017 documented as of this encounter (statuses as of 05/31/2022) [facility] History of Past illness Narrative* Problem Noted Date Resolved Date SOB (shortness of breath) 01/31/20212020 Abnormal EKG 01/31/2021 05/06/2021 Nonspecific abnormal results of liver function s dy 03/31/2009 03/03/2022 Overview: ALT 57 in 6-08, 83 in -, 75 in 7- Clarify when [facility] started as labs first abnl on 09-19-08 US 03-25: multiple, small GS with no GB wall thickening, liver with fatty infiltration Sciatica 06/15/2005 05/06/2021 Paranoid schizophrenia, subc hronic condition with acute exacerbation 05/11/2005 04/23/2017 documented as of this encounter (statuses as of 06/22/2022) [facility]21 History of Past illness Narrative* Problem Noted Date Resolved Date SOB (shortness of breath) 01/31/20212020 Abnormal EKG 01/31/2021 05/06/2021 Nonspecific abnormal results of liver function s dy 03/31/2009 03/03/2022 Overview: ALT 57 in -08, 83 in 09-25, 75 in 03-25 Clarify when [facility] started as labs first abnl on 09-19-08 US 03-25: multiple, small GS with no GB wall thickening, liver with fatty infiltration Sciatica 06/15/2005 05/06/2021 Paranoid schizophrenia, subc hronic condition with acute exacerbation 05/11/2005 04/23/2017 documented as of this encounter (statuses as of 06/22/2022) [facility]21 History of Past illness Narrative* Problem Noted Date Resolved Date SOB (shortness of breath) 01/31/20212020 Abnormal EKG 01/31/2021 05/06/2021 Nonspecific abnormal results of liver function s dy 03/31/2009 03/03/2022 Overview: ALT 57 in -, 83 in 09-25, 75 in 03-25 Clarify when [facility] started as labs first abnl on 09-19-08 US 03-25: multiple, small GS with no GB wall thickening, liver with fatty infiltration Sciatica 06/15/2005 05/06/2021 Paranoid schizophrenia, subc hronic condition with acute exacerbation 05/11/2005 04/23/2017 documented as of this encounter (statuses as of 08/14/2022) [facility]21 History of Past illness Narrative* Problem Noted Date Resolved Date SOB (shortness of breath) 01/31/20212020 Abnormal EKG 01/31/2021 05/06/2021 Nonspecific abnormal results of liver function s dy 03/31/2009 03/03/2022 Overview: ALT 57 in 6-08, 83 in 1-09, 75 in 03-25 Clarify when [facility] started as labs first abnl on 09-19-08 US 03-25: multiple, small GS with no GB wall thickening, liver with fatty infiltration Sciatica 06/15/2005 05/06/2021 Paranoid schizophrenia, subc hronic condition with acute exacerbation 05/11/2005 04/23/2017 documented as of this encounter (statuses as of 08/21/2022) [facility]21 History of Past illness Narrative* Problem Noted Date Resolved Date SOB (shortness of breath) 01/31/20212020 Abnormal EKG 01/31/2021 05/06/2021 Nonspecific abnormal results of liver function s dy 03/31/2009 03/03/2022 Overview: ALT 57 in 6-08, 83 in 09-25, 75 in 03-25 Clarify when [facility] started as labs first abnl on 09-19-08 US 03-25: multiple, small GS with no GB wall thickening, liver with fatty infiltration Sciatica 06/15/2005 05/06/2021 Paranoid schizophrenia, subc hronic condition with acute exacerbation 05/11/2005 04/23/2017 documented as of this encounter (statuses as of 09/26/2022) [facility]21 History of Past illness Narrative* Problem Noted Date Resolved Date SOB (shortness of breath) 01/31/20212020 Abnormal EKG 01/31/2021 05/06/2021 Nonspecific abnormal results of liver function s dy 03/31/2009 03/03/2022 Overview: ALT 57 in 6-08, 83 in 1-, 75 in 03-25 Clarify when [facility] started as labs first abnl on 09-19-08 US 03-25: multiple, small GS with no GB wall thickening, liver with fatty infiltration Sciatica 06/15/2005 05/06/2021 Paranoid schizophrenia, subc hronic condition with acute exacerbation 05/11/2005 04/23/2017 documented as of this encounter (statuses as of 09/29/2022) [facility]21 History of Past illness Narrative* Problem Noted Date Resolved Date SOB (shortness of breath) 01/31/20212020 Abnormal EKG 01/31/2021 05/06/2021 Nonspecific abnormal results of liver function s dy 03/31/2009 03/03/2022 Overview: ALT 57 in 6-08, 83 in 1-09, 75 in 7- Clarify when [facility] started as labs first abnl on 09-19-08 7: multiple, small GS with no GB wall thickening, liver with fatty infiltration Sciatica 06/15/2005 05/06/2021 Paranoid schizophrenia, subc hronic condition with acute exacerbation 05/11/2005 04/23/2017 documented as of this encounter (statuses as of 10/04/2022) [facility] History of Past illness Narrative* Problem Noted Date Resolved Date SOB (shortness of breath) 01/31/20212020 Abnormal EKG 01/31/2021 05/06/2021 Nonspecific abnormal results of liver function s dy 03/31/2009 03/03/2022 Overview: ALT 57 in 6-08, 83 in -, 75 in - Clarify when [facility] started as labs first abnl on 09-19-08 7: multiple, small GS with no GB wall thickening, liver with fatty infiltration Sciatica 06/15/2005 05/06/2021 Paranoid schizophrenia, subc hronic condition with acute exacerbation 05/11/2005 04/23/2017 documented as of this encounter (statuses as of 10/04/2022) [facility] History of Past illness Narrative* Problem Noted Date Resolved Date SOB (shortness of breath) 01/31/20212020 Abnormal EKG 01/31/2021 05/06/2021 Nonspecific abnormal results of liver function s dy 03/31/2009 03/03/2022 Overview: ALT 57 in 6-08, 83 in 09-25, 75 in 03-25 Clarify when [facility] started as labs first abnl on 09-19-08 US 03-25: multiple, small GS with no GB wall thickening, liver with fatty infiltration Sciatica 06/15/2005 05/06/2021 Paranoid schizophrenia, subc hronic condition with acute exacerbation 05/11/2005 04/23/2017 documented as of this encounter (statuses as of 10/16/2022) [facility] History of Past illness Narrative* Problem Noted Date Resolved Date SOB (shortness of breath) 01/31/20212020 Abnormal EKG 01/31/2021 05/06/2021 Nonspecific abnormal results of liver function s dy 03/31/2009 03/03/2022 Overview: ALT 57 in 6-08, 83 in 09-25, 75 in 03-25 Clarify when [facility] started as labs first abnl on 09-19-08 03-25: multiple, small GS with no GB wall thickening, liver with fatty infiltration Sciatica 06/15/2005 05/06/2021 Paranoid schizophrenia, subc hronic condition with acute exacerbation 05/11/2005 04/23/2017 documented as of this encounter (statuses as of 10/16/2022) [facility] History of Past illness Narrative* Problem Noted Date Resolved Date SOB (shortness of breath) 01/31/20212020 Abnormal EKG 01/31/2021 05/06/2021 Nonspecific abnormal results of liver function s dy 03/31/2009 03/03/2022 Overview: ALT 57 in 6-08, 83 in 09-25, 75 in 03-25 Clarify when [facility] started as labs first abnl on 09-19-08 US 03-25: multiple, small GS with no GB wall thickening, liver with fatty infiltration Sciatica 06/15/2005 05/06/2021 Paranoid schizophrenia, subc hronic condition with acute exacerbation 05/11/2005 04/23/2017 documented as of this encounter (statuses as of 10/26/2022) [facility]21 History of Past illness Narrative* Problem Noted Date Resolved Date SOB (shortness of breath) 01/31/20212020 Abnormal EKG 01/31/2021 05/06/2021 Nonspecific abnormal results of liver function s dy 03/31/2009 03/03/2022 Overview: ALT 57 in 6-08, 83 in -, 75 in - Clarify when [facility] started as labs first abnl on 09-19-08 03-25: multiple, small GS with no GB wall thickening, liver with fatty infiltration Sciatica 06/15/2005 05/06/2021 Paranoid schizophrenia, subc hronic condition with acute exacerbation 05/11/2005 04/23/2017 documented as of this encounter (statuses as of 11/10/2022) [facility] History of Past illness Narrative* Problem Noted Date Resolved Date SOB (shortness of breath) 01/31/20212020 Abnormal EKG 01/31/2021 05/06/2021 Nonspecific abnormal results of liver function s dy 03/31/2009 03/03/2022 Overview: ALT 57 in 6-08, 83 in 09-25, 75 in 03-25 Clarify when [facility] started as labs first abnl on 09-19-08 US 7: multiple, small GS with no GB wall thickening, liver with fatty infiltration Sciatica 06/15/2005 05/06/2021 Paranoid schizophrenia, subc hronic condition with acute exacerbation 05/11/2005 04/23/2017 documented as of this encounter (statuses as of 11/13/2022) [facility] History of Past illness Narrative* Problem Noted Date Resolved Date SOB (shortness of breath) 01/31/20212020 Abnormal EKG 01/31/2021 05/06/2021 Nonspecific abnormal results of liver function s dy 03/31/2009 03/03/2022 Overview: ALT 57 in 6-08, 83 in -, 75 in -09 Clarify when [facility] started as labs first abnl on 09-19-08 US 03-25: multiple, small GS with no GB wall thickening, liver with fatty infiltration Sciatica 06/15/2005 05/06/2021 Paranoid schizophrenia, subc hronic condition with acute exacerbation 05/11/2005 04/23/2017 documented as of this encounter (statuses as of 11/22/2022) [facility] History of Past illness Narrative* Problem Noted Date Resolved Date SOB (shortness of breath) 01/31/20212020 Abnormal EKG 01/31/2021 05/06/2021 Nonspecific abnormal results of liver function s dy 03/31/2009 03/03/2022 Overview: ALT 57 in 6-08, 83 in 09-25, 75 in 03-25 Clarify when [facility] started as labs first abnl on 09-19-08 US 03-25: multiple, small GS with no GB wall thickening, liver with fatty infiltration Sciatica 06/15/2005 05/06/2021 Paranoid schizophrenia, subc hronic condition with acute exacerbation 05/11/2005 04/23/2017 documented as of this encounter (statuses as of 11/27/2022) [facility] History of Past illness Narrative* Problem Noted Date Resolved Date SOB (shortness of breath) 01/31/20212020 Abnormal EKG 01/31/2021 05/06/2021 Nonspecific abnormal results of liver function s dy 03/31/2009 03/03/2022 Overview: ALT 57 in 6-08, 83 in 09-25, 75 in 03-25 Clarify when [facility] started as labs first abnl on 09-19-08 US 03-25: multiple, small GS with no GB wall thickening, liver with fatty infiltration Sciatica 06/15/2005 05/06/2021 Paranoid schizophrenia, subc hronic condition with acute exacerbation 05/11/2005 04/23/2017 documented as of this encounter (statuses as of 11/29/2022) [facility] History of Past illness Narrative* Problem Noted Date Resolved Date SOB (shortness of breath) 01/31/20212020 Abnormal EKG 01/31/2021 05/06/2021 Nonspecific abnormal results of liver function s dy 03/31/2009 03/03/2022 Overview: ALT 57 in 6-08, 83 in 1-09, 75 in - Clarify when [facility] started as labs first abnl on 09-19-08 US 7: multiple, small GS with no GB wall thickening, liver with fatty infiltration Sciatica 06/15/2005 05/06/2021 Paranoid schizophrenia, subc hronic condition with acute exacerbation 05/11/2005 04/23/2017 documented as of this encounter (statuses as of 01/19/2023) [facility] History of Past illness Narrative* Problem Noted Date Resolved Date SOB (shortness of breath) 01/31/20212020 Abnormal EKG 01/31/2021 05/06/2021 Nonspecific abnormal results of liver function s dy 03/31/2009 03/03/2022 Overview: ALT 57 in 6-08, 83 in 09-25, 75 in 03-25 Clarify when [facility] started as labs first abnl on 09-19-08 US 03-25: multiple, small GS with no GB wall thickening, liver with fatty infiltration Sciatica 06/15/2005 05/06/2021 Paranoid schizophrenia, subc hronic condition with acute exacerbation 05/11/2005 04/23/2017 documented as of this encounter (statuses as of 02/14/2023) [facility] History of Past illness Narrative* Problem Noted Date Resolved Date SOB (shortness of breath) 01/31/20212020 Abnormal EKG 01/31/2021 05/06/2021 Nonspecific abnormal results of liver function s dy 03/31/2009 03/03/2022 Overview: ALT 57 in 6-08, 83 in -, 75 in - Clarify when [facility] started as labs first abnl on 09-19-08 US 7: multiple, small GS with no GB wall thickening, liver with fatty infiltration Sciatica 06/15/2005 05/06/2021 Paranoid schizophrenia, subc hronic condition with acute exacerbation 05/11/2005 04/23/2017 documented as of this encounter (statuses as of 02/16/2023) [facility] History of Past illness Narrative* Problem Noted Date Resolved Date SOB (shortness of breath) 01/31/20212020 Abnormal EKG 01/31/2021 05/06/2021 Nonspecific abnormal results of liver function s paty 03/31/2009 03/03/2022 Overview: ALT 57 in 6-08, 83 in 1-09, 75 in 7- Clarify when [facility] started as labs first abnl on 09-19-08 US 7: multiple, small GS with no GB wall thickening, liver with fatty infiltration Sciatica 06/15/2005 05/06/2021 Paranoid schizophrenia, subc hronic condition with acute exacerbation 05/11/2005 04/23/2017 documented as of this encounter (statuses as of 02/17/2023) [facility] History of Past illness Narrative* Problem Noted Date Resolved Date SOB (shortness of breath) 01/31/20212020 Abnormal EKG 01/31/2021 05/06/2021 Nonspecific abnormal results of liver function s paty 03/31/2009 03/03/2022 Overview: ALT 57 in 6-08, 83 in 1-, 75 in - Clarify when [facility] started as labs first abnl on 09-19-08 US 7: multiple, small GS with no GB wall thickening, liver with fatty infiltration Sciatica 06/15/2005 05/06/2021 Paranoid schizophrenia, subc hronic condition with acute exacerbation 05/11/2005 04/23/2017 documented as of this encounter (statuses as of 02/22/2023) [facility] History of Past illness Narrative* Problem Noted Date Resolved Date SOB (shortness of breath) 01/31/20212020 Abnormal EKG 01/31/2021 05/06/2021 Nonspecific abnormal results of liver function s paty 03/31/2009 03/03/2022 Overview: ALT 57 in 6-08, 83 in 1-, 75 in 03-25 Clarify when [facility] started as labs first abnl on 09-19-08 US 03-25: multiple, small GS with no GB wall thickening, liver with fatty infiltration Sciatica 06/15/2005 05/06/2021 Paranoid schizophrenia, subc hronic condition with acute exacerbation 05/11/2005 04/23/2017 documented as of this encounter (statuses as of 03/03/2023) [facility] History of Past illness Narrative* Problem Noted Date Resolved Date SOB (shortness of breath) 01/31/20212020 Abnormal EKG 01/31/2021 05/06/2021 Nonspecific abnormal results of liver function s dy 03/31/2009 03/03/2022 Overview: ALT 57 in 6-08, 83 in 09-25, 75 in 03-25 Clarify when [facility] started as labs first abnl on 09-19-08 US 03-25: multiple, small GS with no GB wall thickening, liver with fatty infiltration Sciatica 06/15/2005 05/06/2021 Paranoid schizophrenia, subc hronic condition with acute exacerbation 05/11/2005 04/23/2017 documented as of this encounter (statuses as of 03/06/2023) [facility] History of Past illness Narrative* Problem Noted Date Resolved Date SOB (shortness of breath) 01/31/20212020 Abnormal EKG 01/31/2021 05/06/2021 Nonspecific abnormal results of liver function s dy 03/31/2009 03/03/2022 Overview: ALT 57 in 6-08, 83 in -, 75 in - Clarify when [facility] started as labs first abnl on 09-19-08 US 03-25: multiple, small GS with no GB wall thickening, liver with fatty infiltration Sciatica 06/15/2005 05/06/2021 Paranoid schizophrenia, subc hronic condition with acute exacerbation 05/11/2005 04/23/2017 documented as of this encounter (statuses as of 03/20/2023) [facility] History of Past illness Narrative* Problem Noted Date Resolved Date SOB (shortness of breath) 01/31/20212020 Abnormal EKG 01/31/2021 05/06/2021 Nonspecific abnormal results of liver function s tudy 03/31/2009 03/03/2022 Overview: ALT 57 in 6-08, 83 in 1-, 75 in - Clarify when [facility] started as labs first abnl on 09-19-08 7: multiple, small GS with no GB wall thickening, liver with fatty infiltration Sciatica 06/15/2005 05/06/2021 Paranoid schizophrenia, subc hronic condition with acute exacerbation 05/11/2005 04/23/2017 documented as of this encounter (statuses as of 03/22/2023) [facility] History of Past illness Narrative* Problem Noted Date Diagnosed Date Resolved Date SOB (shortness of breath) 01/31/2021 Abnormal EKG 01/31/2021 05/06/2021 Nonspecific abnormal results of liver function study 03/31/2009 03/03/2022 Overview: ALT 57 in 6-08, 83 in 09-25, 75 in - Clarify when [facility] started as labs first abnl on 09-19-08 7: multiple, small GS with no GB wall thickening, liver with fatty infiltration Sciatica 06/15/2005 05/06/2021 Paranoid schizophrenia, subc hronic condition with acute exacerbation 05/11/2005 04/23/2017 documented as of this encounter (statuses as of 04/13/2023) [facility] History of Past illness Narrative* Problem Noted Date Diagnosed Date Resolved Date SOB (shortness of breath) 01/31/2021 Abnormal EKG 01/31/2021 05/06/2021 Nonspecific abnormal results of liver function study 03/31/2009 03/03/2022 Overview: ALT 57 in 6-08, 83 in 1-09, 75 in 7-09 Clarify when [facility] started as labs first abnl on 09-19-08 US 03-25: multiple, small GS with no GB wall thickening, liver with fatty infiltration Sciatica 06/15/2005 05/06/2021 Paranoid schizophrenia, subc hronic condition with acute exacerbation 05/11/2005 04/23/2017 documented as of this encounter (statuses as of 04/26/2023) [facility] History of Past illness Narrative* Problem Noted Date Diagnosed Date Resolved Date SOB (shortness of breath) 01/31/2021 Abnormal EKG 01/31/2021 05/06/2021 Nonspecific abnormal results of liver function study 03/31/2009 03/03/2022 Overview: ALT 57 in 6-08, 83 in 09-25, 75 in 03-25 Clarify when [facility] started as labs first abnl on 09-19-08 US 03-25: multiple, small GS with no GB wall thickening, liver with fatty infiltration Sciatica 06/15/2005 05/06/2021 Paranoid schizophrenia, subc hronic condition with acute exacerbation 05/11/2005 04/23/2017 documented as of this encounter (statuses as of 05/01/2023) [facility] History of Past illness Narrative* Problem Noted Date Diagnosed Date Resolved Date SOB (shortness of breath) 01/31/2021 Abnormal EKG 01/31/2021 05/06/2021 Nonspecific abnormal results of liver function study 03/31/2009 03/03/2022 Overview: ALT 57 in 6-08, 83 in 09-25, 75 in 03-25 Clarify when [facility] started as labs first abnl on 09-19-08 US 03-25: multiple, small GS with no GB wall thickening, liver with fatty infiltration Sciatica 06/15/2005 05/06/2021 Paranoid schizophrenia, subc hronic condition with acute exacerbation 05/11/2005 04/23/2017 documented as of this encounter (statuses as of 05/02/2023) [facility] History of Past illness Narrative* Problem Noted Date Diagnosed Date Resolved Date SOB (shortness of breath) 01/31/2021 Abnormal EKG 01/31/2021 05/06/2021 Nonspecific abnormal results of liver function study 03/31/2009 03/03/2022 Overview: ALT 57 in 6-08, 83 in 1-, 75 in 7- Clarify when [facility] started as labs first abnl on 09-19-08 US 03-25: multiple, small GS with no GB wall thickening, liver with fatty infiltration Sciatica 06/15/2005 05/06/2021 Paranoid schizophrenia, subc hronic condition with acute exacerbation 05/11/2005 04/23/2017 documented as of this encounter (statuses as of 05/12/2023) [facility] History of Past illness Narrative* Problem Noted Date Diagnosed Date Resolved Date SOB (shortness of breath) 01/31/2021 Abnormal EKG 01/31/2021 05/06/2021 Nonspecific abnormal results of liver function study 03/31/2009 03/03/2022 Overview: ALT 57 in 6-08, 83 in 09-25, 75 in 03-25 Clarify when [facility] started as labs first abnl on 09-19-08 US 03-25: multiple, small GS with no GB wall thickening, liver with fatty infiltration Sciatica 06/15/2005 05/06/2021 Paranoid schizophrenia, subc hronic condition with acute exacerbation 05/11/2005 04/23/2017 documented as of this encounter (statuses as of 05/17/2023) [facility] of Past illness Narrative* Problem Noted Date Diagnosed Date Resolved Date SOB (shortness of breath) 01/31/2021 Abnormal EKG 01/31/2021 05/06/2021 Nonspecific abnormal results of liver function study 03/31/2009 03/03/2022 Overview: ALT 57 in 6-08, 83 in -, 75 in 03-25 Clarify when [facility] started as labs first abnl on 09-19-08 US 03-25: multiple, small GS with no GB wall thickening, liver with fatty infiltration Sciatica 06/15/2005 05/06/2021 Paranoid schizophrenia, subc hronic condition with acute exacerbation 05/11/2005 04/23/2017 documented as of this encounter (statuses as of 05/19/2023) [facility] of Past illness Narrative* Problem Noted Date Diagnosed Date Resolved Date SOB (shortness of breath) 01/31/2021 Abnormal EKG 01/31/2021 05/06/2021 Nonspecific abnormal results of liver function study 03/31/2009 03/03/2022 Overview: ALT 57 in -, 82 in 09-25, 74 in 03-25 Clarify when Crestor started as labs first abnl on 09-19-08 [place] 03-25: multiple, small GS with no GB wall thickening, liver with fatty infiltration Sciatica 06/15/2005 05/06/2021 Paranoid schizophrenia, subc hronic condition with acute exacerbation 05/11/2005 04/23/2017 documented as of this encounter (statuses as of 06/04/2023) [facility] Diagnosis Type 2 diabetes mellitus without complication, with long-term current use of insulin ([facility]) documented [facility] this [facility] Diagnosis Type 2 diabetes mellitus without complication, with long-term current use of insulin ([facility]) documented [facility] Diagnosis Type 2 diabetes mellitus without complication, with long-term current use of insulin ([facility]) [facility] Diagnosis Type 2 diabetes mellitus without complication, with long-term current use of insulin ([facility])- Primary documented in this [facility]* Diagnosis Diarrhea, unspecified type [facility] Diagnosis Strain of calf muscle, right, initial encounter- Primary [facility] Diagnosis Type 2 diabetes mellitus without complication, with long-term current use of insulin ([facility]) [facility] Diagnosis Gastrocnemius tear, right, initial encounter- Primary [facility] Diagnosis Type 2 diabetes mellitus without complication, with long-term current use of insulin ([facility]) documented [facility] Diagnosis Essential hypertension- Primary Unspecified essential hypertension Pure hypercholesterolemia Paroxysmal atrial fibrillation (HCC) Atrial fibrillation Type 2 diabetes mellitus with microalbuminuria, with long-term current use of insulin (HCC) Chronic anticoagulation Long-term (current) use of anticoagulants Need for hepatitis C screening test Special screening examination for other specified viral diseases [facility] Diagnosis Diarrhea, unspecified type [facility] Diagnosis Type 2 diabetes mellitus without complication, with long-term current use of insulin (HCC)- Primary Essential hypertension Unspecified essential hypertension [facility]* Diagnosis Chest pain, unspecified type- Primary Accidental medication error, initial encounter [facility] Diagnosis Essential hypertension Unspecified essential hypertension [facility] Diagnosis Essential hypertension- Primary Unspecified essential hypertension Paroxysmal atrial fibrillation (HCC) Atrial fibrillation Pure hypercholesterolemia Type 2 diabetes mellitus with microalbuminuria, with long-term current use of insulin (HCC) Chronic anticoagulation Long-term (current) use of anticoagulants Monocytosis Monocytosis (symptomatic) Need for influenza vaccination Need for prophylactic vaccination and inoculation against influenza [facility] Diagnosis Type 2 diabetes mellitus without complication, with long-term current use of insulin (HCC)- Primary [facility] Diagnosis Pure hypercholesterolemia [facility]* Diagnosis Type 2 diabetes mellitus without complication, with long-term current use of insulin (HCC) [facility]* Diagnosis Type 2 diabetes mellitus with microalbuminuria, with long-term current use of insulin (HCC)- Primary [facility]* Diagnosis Chest pain, unspecified type- Primary Leukocytosis, unspecified type Type 2 diabetes mellitus with microalbuminuria, 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, 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, chronic condition Paroxysmal atrial fibrillation (HCC) Atrial fibrillation Essential hypertension Unspecified essential hypertension Pure hypercholesterolemia [facility] Diagnosis Skin mass- Primary Localized superficial swelling, mass, or lump [facility] Diagnosis Lesion of subcutaneous tissue- Primary Unspecified disorder of skin and subcutaneous tissue documented [facility] Diagnosis Acute left ankle pain- Primary documented [facility]* Diagnosis Nausea- Primary Nausea alone Hypoglycemia Hypoglycemia, unspecified Type 2 diabetes mellitus with microalbuminuria, with long-term current use of insulin (HCC) Leukocytosis, unspecified type Abnormal serum level of lipase Other nonspecific abnormal serum enzyme levels Benign prostatic hyperplasia with lower urinary tract symptoms, symptom details unspecified Urinary retention Retention of urine, unspecified documented [facility] Diagnosis Acute constipation- Primary Unspecified constipation documented [facility] Diagnosis OPENED IN ERROR- Primary To allow closing an encounter opened in error (used in SmartSet) documented [facility] this encounter [facility]* Diagnosis Inflamed acrochordon- Primary Unspecified hypertrophic and atrophic condition of skin Seborrheic keratoses, inflamed Inflamed seborrheic keratosis documented [facility]* Diagnosis Encounter for post surgical wound check- Primary documented [facility] this encounter [facility]* Diagnosis Near syncope- Primary Syncope and collapse Fall, initial encounter Acute upper respiratory infection Acute upper respiratory infections of unspecified site Morbid obesity (HCC) Morbid obesity documented [facility] this [facility]* Diagnosis Essential hypertension- Primary Unspecified essential hypertension Encounter for immunization Need for other specified prophylactic vaccination against single bacterial disease Paroxysmal atrial fibrillation (HCC) Atrial fibrillation Mixed hyperlipidemia Schizophrenia, 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, chronic condition Chronic anticoagulation Long-term (current) use of anticoagulants Type 2 diabetes mellitus with microalbuminuria, with long-term current use of insulin (HCC) Restrictive lung disease Other diseases of lung, not elsewhere classified documented [facility] this encounter [facility]* Diagnosis Diarrhea, unspecified type documented [facility]* Diagnosis Viral URI with cough- Primary Acute upper respiratory infections of unspecified site Suspected COVID-19 virus infection Bronchitis Bronchitis, not specified as acute or chronic documented [facility] this encounter [facility]* Diagnosis Nausea Nausea alone documented [facility] this [facility]* Diagnosis Acute hip pain, right- Primary documented [facility] this encounter [facility]* Diagnosis Pure hypercholesterolemia documented in this encounter [facility] for referral (narrative)* Diagnostic Procedure Only (Urgent) - Closed Specialty Diagnoses / Procedures Referred By Shara t Referred To Contact XR IMAGING Diagnoses Acute left ankle pain Procedures XR ANKLE GENERAL 3V AP/LAT/OBL LEFT RADEX ANKLE COMPLETE MINIMUM 3 VIEWS Denisha Shepard APRN.CNP [address] [place] [address] Xr Imaging Referral ID Status Reason Start Date Expiration Date V isits Requested Visits Authorized [id number] Closed Auto-Generate d Referral 02/16/2023 03/17/2024 1 1 [facility] for referral (narrative)* Outpatient Procedure (Routine) - Authorized Specialty Diagnoses / Procedures Referred By Contac t Referred To Contact [facility] Diagnoses Near syncope Fall, initial encounter Procedures ECG COMPLETE ECG ROUTINE ECG W/LEAST 12 LDS W/I&R Osvaldo Travis PA-C [address] [place] [address] [facility] [place] [address] [place] [address] Referral ID Status Reason Start Date Expiration Date Visits Requested Visits Authorized [id number] Authorized Auto-Generat ed Referral 05/18/2023 05/17/2024 1 1 [facility] for referral (narrative)* Diagnostic Procedure Only (Routine) - Closed Specialty Diagnoses / Procedures Referred By Contac t Referred To Contact XR IMAGING Diagnoses Acute hip pain, right Procedures XR HIP GENERAL 3V PELV/AP/LAT RIGHT RADEX HIP UNILATERAL WITH PELVIS 2-3 VIEWS Jarvis Nicole MD [address] [place] [address] Xr Imaging [id number] Referral ID Status Reason Start Date Expiration Date V isits Requested Visits Authorized [id number] Closed Auto-Generate d Referral 07/23/2023 08/21/2024 1 1 [facility] Summary Purpose Family History No Family History Records FoundNo Family History Records Found Advance Directives No Advanced Directives Records FoundDocuments on File Type Date Recorded 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 Advance Directive(s) Advance Directive(s) 03/14/2021 10:51 AM Documents on File Type Date Recorded 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 Advance Directive(s) Advance Directive(s) 03/14/2021 10:51 AM Documents on File Type Date Recorded 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 Advance Directive(s) 03/14/2021 10:51 AM Documents on File Type Date Recorded 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 Advance Directive(s) 03/14/2021 10:51 AM Reason for Referral Specialty Diagnoses / Procedures Referred By Contac t Referred To Contact Orthopedics Diagnoses Strain of calf muscle, right, initial encounter Procedures CONSULT TO ORTHOPAEDICS OFFICE/OUTPATIENT [facility] 60-74 MINUTES Saad Park APRN.CNP [address] [place] [address] Referral ID Status Reason Start Date Expiration Date Visits Requested Visits Authorized [id number] Pending Review PCP Requested Referral 01/27/2022 01/27/2023 1 1 Specialty Diagnoses / Procedures Referred By Contac t Referred To Contact [facility] Diagnoses Gastrocnemius tear, right, initial encounter Procedures CONSULT TO PHYSICAL THERAPY PHYSICAL THERAPY EVALUATION HIGH COMPLEX 45 MINS Papito Castano V, DO [address] [place] [address] [facility] [place] [address] [place] [address] Referral ID Status Reason Start Date Expiration Date Visits Requested Visits Authorized [id number] Pending Review Auto-Generat ed Referral 02/03/2022 02/03/2023 1 1 Specialty Diagnoses / Procedures Referred By Contac t Referred To Contact General Surgery Diagnoses Skin mass Procedures CONSULT TO GENERAL SURGERY OFFICE/OUTPATIENT [facility] 60-74 MINUTES Jeff Virgen MD [address] [place] [address] Referral ID Status Reason Start Date Expiration Date Visits Requested Visits Authorized [id number] Pending Review PCP Requested Referral 01/19/2023 01/19/2024 1 1 Specialty Diagnoses / Procedures Referred By Contac t Referred To Contact Urology Diagnoses Benign prostatic hyperplasia with lower urinary tract symptoms, symptom details unspecified Urinary retention Procedures CONSULT TO UROLOGY Jeff Virgen MD [address] [place] [address] Referral ID Status Reason Start Date Expiration Date Visits Requested Visits Authorized [id number] Ref Not Required PCP Requested Referral 03/02/2023 03/01/2024 1 1 Specialty Diagnoses / Procedures Referred By Contluz maria t Referred To Contact Ophthalmology Diagnoses Type 2 diabetes mellitus with microalbuminuria, with long-term current use of insulin (HCC) Procedures CONSULT TO OPHTHALMOLOGY OFFICE/OUTPATIENT NEW HIGH MDM 60-74 MINUTES Jeff Virgen MD [address] [place] [address] Referral ID Status Reason Start Date Expiration Date Visits Requested Visits Authorized [id number] Pending Review PCP Requested Referral 06/06/2023 06/05/2024 1 1 Additional Source Comments (unrecognized sect ion and content) No Status Records FoundNo Status Records Found INFORMATION SOURCE (unrecogn ized section and content) DATE CREATED AUTHOR AUTHOR'S ORGANIZ ATION 09/13/2023 [facility] Source Comments (unrecognize d section and content) In the event this informatio n is protected by the Federal Confidentiality of Alcohol and Drug Abuse Patient Records regulations: The Federal rules restrict any use of the information to criminally investigate or prosecute any alcohol or drug abuse patient.[facility] the event this information is protected by the Federal Confidentiality of Alcohol and Drug Abuse Patient Records regulations: The Federal rules restrict any use of the information to criminally investigate or prosecute any alcohol or drug abuse patient.[facility] Center[facility] the event this information is protected by the Federal Confidentiality of Alcohol and Drug Abuse Patient Records regulations: The Federal rules restrict any use of the information to criminally investigate or prosecute any alcohol or drug abuse patient.[facility] Center[facility] the event this information is protected by the Federal Confidentiality of Alcohol and Drug Abuse Patient Records regulations: The Federal rules restrict any use of the information to criminally investigate or prosecute any alcohol or drug abuse patient.[facility] CenterIn the event this information is protected by the Federal Confidentiality of Alcohol and Drug Abuse Patient Records regulations: The Federal rules restrict any use of the information to criminally investigate or prosecute any alcohol or drug abuse patient.[facility] CenterIn the event this information is protected by the Federal Confidentiality of Alcohol and Drug Abuse Patient Records regulations: The Federal rules restrict any use of the information to criminally investigate or prosecute any alcohol or drug abuse patient.[facility] CenterIn the event this information is protected by the Federal Confidentiality of Alcohol and Drug Abuse Patient Records regulations: The Federal rules restrict any use of the information to criminally investigate or prosecute any alcohol or drug abuse patient.[facility] CenterIn the event this information is protected by the Federal Confidentiality of Alcohol and Drug Abuse Patient Records regulations: The Federal rules restrict any use of the information to criminally investigate or prosecute any alcohol or drug abuse patient.[facility] CenterIn the event this information is protected by the Federal Confidentiality of Alcohol and Drug Abuse Patient Records regulations: The Federal rules restrict any use of the information to criminally investigate or prosecute any alcohol or drug abuse patient.[facility] CenterIn the event this information is protected by the Federal Confidentiality of Alcohol and Drug Abuse Patient Records regulations: The Federal rules restrict any use of the information to criminally investigate or prosecute any alcohol or drug abuse patient.[facility] CenterIn the event this information is protected by the Federal Confidentiality of Alcohol and Drug Abuse Patient Records regulations: The Federal rules restrict any use of the information to criminally investigate or prosecute any alcohol or drug abuse patient.[facility] CenterIn the event this information is protected by the Federal Confidentiality of Alcohol and Drug Abuse Patient Records regulations: The Federal rules restrict any use of the information to criminally investigate or prosecute any alcohol or drug abuse patient.[facility] CenterIn the event this information is protected by the Federal Confidentiality of Alcohol and Drug Abuse Patient Records regulations: The Federal rules restrict any use of the information to criminally investigate or prosecute any alcohol or drug abuse patient.[facility] CenterIn the event this information is protected by the Federal Confidentiality of Alcohol and Drug Abuse Patient Records regulations: The Federal rules restrict any use of the information to criminally investigate or prosecute any alcohol or drug abuse patient.[facility] CenterIn the event this information is protected by the Federal Confidentiality of Alcohol and Drug Abuse Patient Records regulations: The Federal rules restrict any use of the information to criminally investigate or prosecute any alcohol or drug abuse patient.[facility] CenterIn the event this information is protected by the Federal Confidentiality of Alcohol and Drug Abuse Patient Records regulations: The Federal rules restrict any use of the information to criminally investigate or prosecute any alcohol or drug abuse patient.[facility] CenterIn the event this information is protected by the Federal Confidentiality of Alcohol and Drug Abuse Patient Records regulations: The Federal rules restrict any use of the information to criminally investigate or prosecute any alcohol or drug abuse patient.[facility] CenterIn the event this information is protected by the Federal Confidentiality of Alcohol and Drug Abuse Patient Records regulations: The Federal rules restrict any use of the information to criminally investigate or prosecute any alcohol or drug abuse patient.[facility] CenterIn the event this information is protected by the Federal Confidentiality of Alcohol and Drug Abuse Patient Records regulations: The Federal rules restrict any use of the information to criminally investigate or prosecute any alcohol or drug abuse patient.[facility] CenterIn the event this information is protected by the Federal Confidentiality of Alcohol and Drug Abuse Patient Records regulations: The Federal rules restrict any use of the information to criminally investigate or prosecute any alcohol or drug abuse patient.[facility] CenterIn the event this information is protected by the Federal Confidentiality of Alcohol and Drug Abuse Patient Records regulations: The Federal rules restrict any use of the information to criminally investigate or prosecute any alcohol or drug abuse patient.[facility] CenterIn the event this information is protected by the Federal Confidentiality of Alcohol and Drug Abuse Patient Records regulations: The Federal rules restrict any use of the information to criminally investigate or prosecute any alcohol or drug abuse patient.[facility] CenterIn the event this information is protected by the Federal Confidentiality of Alcohol and Drug Abuse Patient Records regulations: The Federal rules restrict any use of the information to criminally investigate or prosecute any alcohol or drug abuse patient.[facility] CenterIn the event this information is protected by the Federal Confidentiality of Alcohol and Drug Abuse Patient Records regulations: The Federal rules restrict any use of the information to criminally investigate or prosecute any alcohol or drug abuse patient.[facility] CenterIn the event this information is protected by the Federal Confidentiality of Alcohol and Drug Abuse Patient Records regulations: The Federal rules restrict any use of the information to criminally investigate or prosecute any alcohol or drug abuse patient.[facility] CenterIn the event this information is protected by the Federal Confidentiality of Alcohol and Drug Abuse Patient Records regulations: The Federal rules restrict any use of the information to criminally investigate or prosecute any alcohol or drug abuse patient.[facility] CenterIn the event this information is protected by the Federal Confidentiality of Alcohol and Drug Abuse Patient Records regulations: The Federal rules restrict any use of the information to criminally investigate or prosecute any alcohol or drug abuse patient.[facility] CenterIn the event this information is protected by the Federal Confidentiality of Alcohol and Drug Abuse Patient Records regulations: The Federal rules restrict any use of the information to criminally investigate or prosecute any alcohol or drug abuse patient.[facility] CenterIn the event this information is protected by the Federal Confidentiality of Alcohol and Drug Abuse Patient Records regulations: The Federal rules restrict any use of the information to criminally investigate or prosecute any alcohol or drug abuse patient.[facility] CenterIn the event this information is protected by the Federal Confidentiality of Alcohol and Drug Abuse Patient Records regulations: The Federal rules restrict any use of the information to criminally investigate or prosecute any alcohol or drug abuse patient.[facility] CenterIn the event this information is protected by the Federal Confidentiality of Alcohol and Drug Abuse Patient Records regulations: The Federal rules restrict any use of the information to criminally investigate or prosecute any alcohol or drug abuse patient.[facility] CenterIn the event this information is protected by the Federal Confidentiality of Alcohol and Drug Abuse Patient Records regulations: The Federal rules restrict any use of the information to criminally investigate or prosecute any alcohol or drug abuse patient.[facility] CenterIn the event this information is protected by the Federal Confidentiality of Alcohol and Drug Abuse Patient Records regulations: The Federal rules restrict any use of the information to criminally investigate or prosecute any alcohol or drug abuse patient.[facility] CenterIn the event this information is protected by the Federal Confidentiality of Alcohol and Drug Abuse Patient Records regulations: The Federal rules restrict any use of the information to criminally investigate or prosecute any alcohol or drug abuse patient.[facility] CenterIn the event this information is protected by the Federal Confidentiality of Alcohol and Drug Abuse Patient Records regulations: The Federal rules restrict any use of the information to criminally investigate or prosecute any alcohol or drug abuse patient.[facility] CenterIn the event this information is protected by the Federal Confidentiality of Alcohol and Drug Abuse Patient Records regulations: The Federal rules restrict any use of the information to criminally investigate or prosecute any alcohol or drug abuse patient.[facility] CenterIn the event this information is protected by the Federal Confidentiality of Alcohol and Drug Abuse Patient Records regulations: The Federal rules restrict any use of the information to criminally investigate or prosecute any alcohol or drug abuse patient.[facility] CenterIn the event this information is protected by the Federal Confidentiality of Alcohol and Drug Abuse Patient Records regulations: The Federal rules restrict any use of the information to criminally investigate or prosecute any alcohol or drug abuse patient.[facility] CenterIn the event this information is protected by the Federal Confidentiality of Alcohol and Drug Abuse Patient Records regulations: The Federal rules restrict any use of the information to criminally investigate or prosecute any alcohol or drug abuse patient.[facility] CenterIn the event this information is protected by the Federal Confidentiality of Alcohol and Drug Abuse Patient Records regulations: The Federal rules restrict any use of the information to criminally investigate or prosecute any alcohol or drug abuse patient.[facility] CenterIn the event this information is protected by the Federal Confidentiality of Alcohol and Drug Abuse Patient Records regulations: The Federal rules restrict any use of the information to criminally investigate or prosecute any alcohol or drug abuse patient.[facility] CenterIn the event this information is protected by the Federal Confidentiality of Alcohol and Drug Abuse Patient Records regulations: The Federal rules restrict any use of the information to criminally investigate or prosecute any alcohol or drug abuse patient.[facility] CenterIn the event this information is protected by the Federal Confidentiality of Alcohol and Drug Abuse Patient Records regulations: The Federal rules restrict any use of the information to criminally investigate or prosecute any alcohol or drug abuse patient.[facility] CenterIn the event this information is protected by the Federal Confidentiality of Alcohol and Drug Abuse Patient Records regulations: The Federal rules restrict any use of the information to criminally investigate or prosecute any alcohol or drug abuse patient.[facility] CenterIn the event this information is protected by the Federal Confidentiality of Alcohol and Drug Abuse Patient Records regulations: The Federal rules restrict any use of the information to criminally investigate or prosecute any alcohol or drug abuse patient.[facility] the event this information is protected by the Federal Confidentiality of Alcohol and Drug Abuse Patient Records regulations: The Federal rules restrict any use of the information to criminally investigate or prosecute any alcohol or drug abuse patient.[facility] CenterIn the event this information is protected by the Federal Confidentiality of Alcohol and Drug Abuse Patient Records regulations: The Federal rules restrict any use of the information to criminally investigate or prosecute any alcohol or drug abuse patient.[facility] CenterIn the event this information is protected by the Federal Confidentiality of Alcohol and Drug Abuse Patient Records regulations: The Federal rules restrict any use of the information to criminally investigate or prosecute any alcohol or drug abuse patient.[facility] CenterIn the event this information is protected by the Federal Confidentiality of Alcohol and Drug Abuse Patient Records regulations: The Federal rules restrict any use of the information to criminally investigate or prosecute any alcohol or drug abuse patient.[facility] CenterIn the event this information is protected by the Federal Confidentiality of Alcohol and Drug Abuse Patient Records regulations: The Federal rules restrict any use of the information to criminally investigate or prosecute any alcohol or drug abuse patient.[facility] CenterIn the event this information is protected by the Federal Confidentiality of Alcohol and Drug Abuse Patient Records regulations: The Federal rules restrict any use of the information to criminally investigate or prosecute any alcohol or drug abuse patient.[facility] CenterIn the event this information is protected by the Federal Confidentiality of Alcohol and Drug Abuse Patient Records regulations: The Federal rules restrict any use of the information to criminally investigate or prosecute any alcohol or drug abuse patient.[facility] CenterIn the event this information is protected by the Federal Confidentiality of Alcohol and Drug Abuse Patient Records regulations: The Federal rules restrict any use of the information to criminally investigate or prosecute any alcohol or drug abuse patient.[facility] CenterIn the event this information is protected by the Federal Confidentiality of Alcohol and Drug Abuse Patient Records regulations: The Federal rules restrict any use of the information to criminally investigate or prosecute any alcohol or drug abuse patient.[facility] CenterIn the event this information is protected by the Federal Confidentiality of Alcohol and Drug Abuse Patient Records regulations: The Federal rules restrict any use of the information to criminally investigate or prosecute any alcohol or drug abuse patient.[facility] CenterIn the event this information is protected by the Federal Confidentiality of Alcohol and Drug Abuse Patient Records regulations: The Federal rules restrict any use of the information to criminally investigate or prosecute any alcohol or drug abuse patient.[facility] CenterIn the event this information is protected by the Federal Confidentiality of Alcohol and Drug Abuse Patient Records regulations: The Federal rules restrict any use of the information to criminally investigate or prosecute any alcohol or drug abuse patient.[facility] CenterIn the event this information is protected by the Federal Confidentiality of Alcohol and Drug Abuse Patient Records regulations: The Federal rules restrict any use of the information to criminally investigate or prosecute any alcohol or drug abuse patient.[facility] CenterIn the event this information is protected by the Federal Confidentiality of Alcohol and Drug Abuse Patient Records regulations: The Federal rules restrict any use of the information to criminally investigate or prosecute any alcohol or drug abuse patient.[facility] CenterIn the event this information is protected by the Federal Confidentiality of Alcohol and Drug Abuse Patient Records regulations: The Federal rules restrict any use of the information to criminally investigate or prosecute any alcohol or drug abuse patient.[facility] CenterIn the event this information is protected by the Federal Confidentiality of Alcohol and Drug Abuse Patient Records regulations: The Federal rules restrict any use of the information to criminally investigate or prosecute any alcohol or drug abuse patient.[facility] CenterIn the event this information is protected by the Federal Confidentiality of Alcohol and Drug Abuse Patient Records regulations: The Federal rules restrict any use of the information to criminally investigate or prosecute any alcohol or drug abuse patient.[facility] CenterIn the event this information is protected by the Federal Confidentiality of Alcohol and Drug Abuse Patient Records regulations: The Federal rules restrict any use of the information to criminally investigate or prosecute any alcohol or drug abuse patient.[facility] CenterIn the event this information is protected by the Federal Confidentiality of Alcohol and Drug Abuse Patient Records regulations: The Federal rules restrict any use of the information to criminally investigate or prosecute any alcohol or drug abuse patient.[facility] CenterIn the event this information is protected by the Federal Confidentiality of Alcohol and Drug Abuse Patient Records regulations: The Federal rules restrict any use of the information to criminally investigate or prosecute any alcohol or drug abuse patient.[facility] Reason for Visit (unrecogniz ed section and content) Reason Comments Forms Jardiance PAP Reason Comments Medication Problem Reason Onset Date Comments Refill Request 12/29/2021 Reason Comments Diabetes Reason Onset Date Comments Refill Request 01/12/2022 Reason Comments right calf pain x 2 hours-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 Reason 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 Refills Reason Onset Date Comments Refill Request 02/01/2022 patient assistan ce Reason Onset Date Comments Refill Request 02/02/2022 Reason Comments New Patient Right calf muscle st rain REF: [facility] [place] Reason Comments Patient Request Reason Comments indigent med Reason Comments Follow Up 3 month follow up di abetes Reason Comments Forms Ashley Cares applicat ion Reason Comments Medication Question Reason Comments Forms Basaglar PAP Reason Comments Acute Visit took evening meds to [facility], worried about having affects with carvedilol Reason Onset Date Comments Refill Request 05/08/2022 Reason Onset Date Comments Follow Up Immunizations 05/31/2022 Flu vaccination Reason Comments Forms Jardiance patient as sistance application Reason Comments Insulin Needle broke in stomach Reason Onset Date Comments Refill Request 08/21/2022 Reason Comments Ashley Care Forms for Insulin Reason Onset Date Comments Refill Request 10/03/2022 Reason Onset Date Comments Refill Request 11/10/2022 Reason Onset Date Comments Transition Of Care 11/22/2022 [facility] 37-3 d x: chest pain Reason Comments Orders Reason Comments Transition Of Care Reason Comments lump on chest Reason Comments Nurse Visit Suture removal and r eview pathology. Reason Comments Results Reason Comments Ankle Pain L ankle pain- starte d yesterday; no known injury Reason Onset Date Comments Refill Request 02/22/2023 medication quest ion Reason Comments ED Follow-up Reason Comments Constipation X5 days Reason Onset Date Comments Opened In Error 03/22/2023 Reason Onset Date Comments Refill Request 04/12/2023 Reason Comments Derm Problem Skin tags Reason Comments Forms Reason Comments Refill Request Reason Comments Syncope Weakness Reason Comments patient question/labs Reason Comments 6 Month Exam Reason Onset Date Comments Refill Request 06/07/2023 Reason Comments Viral Syndrome Reason Comments Cough X 3 days Fatigue Slept most of the da y yesterday Wheezing Shortness of Breath Reason Onset Date Comments Refill Request 06/19/2023 Reason Comments Pain Right hip pain x 3 d ays. Making walking difficult. Patient reports walker is helpful. Reason Comments Patient Assistance Ashley Cares (Basagla r and Humalog) Reason Onset Date Comments Refill Request 08/27/2023 Reason Comments Coughing Up Blood Care Teams (unrecognized sec tion and content) Inspectors And Regulatory Officers Relationship Specialty Start Date End Date Jeff Virgen MD [address] [place] [address] PCP - General Family Practice 01/10/18 [facility] [address] [place] [address] Pharmacist Pharmacy 05/24/20 Kaitlyn HernándezCap[facility] [address] [place] [address] Pharmacist Pharmacy 03/31/21 Inspectors And Regulatory Officers Relationship Specialty Start Date End Date Jeff Virgen MD [address] [place], [place] [address] PCP - General Family Practice 01/10/18 [facility] [address] [place] [address] Pharmacist Pharmacy 05/24/20 Kaitlyn Hernández[facility] [address] [place] [address] Pharmacist Pharmacy 03/31/21 Inspectors And Regulatory Officers Relationship Specialty Start Date End Date Jeff Virgen MD [address] [place] [address] PCP - General Family Practice 01/10/18 [facility] [address] [place] [address] Pharmacist Pharmacy 05/24/20 Jaqueline HernándezilyCapital [facility] [address] [place] [address] Pharmacist Pharmacy 03/31/21 Inspectors And Regulatory Officers Relationship Specialty Start Date End Date Jeff Virgen MD [address] [place] [address] PCP - General Family Practice 01/10/18 [facility] [address] [place] [address] Pharmacist Pharmacy 05/24/20 Kaitlyn Hern[facility] [address] [place] [address] Pharmacist Pharmacy 03/31/21 Inspectors And Regulatory Officers Relationship Specialty Start Date End Date Jeff Virgen MD [address] [place] [address] PCP - General Family Practice 01/10/18 [facility] [address] [place] [address] Pharmacist Pharmacy 05/24/20 Kaitlyn Hernández, [facility] [address] [place] [address] Pharmacist Pharmacy 03/31/21 Inspectors And Regulatory Officers Relationship Specialty Start Date End Date Jeff Virgen MD [address] [place] [address] PCP - General Family Practice 01/10/18 [facility] [address] [place] [address] Pharmacist Pharmacy 05/24/20 Kaitlyn HernándezCap[facility] [address] [place] [address] Pharmacist Pharmacy 03/31/21 Inspectors And Regulatory Officers Relationship Specialty Start Date End Date Jeff Virgen MD [address] [place] [address] PCP - General Family Practice 01/10/18 [facility] [address] [place] [address] Pharmacist Pharmacy 05/24/20 Kaitlyn Hernández[facility] [address] [place] [address] Pharmacist Pharmacy 03/31/21 Inspectors And Regulatory Officers Relationship Specialty Start Date End Date Jeff Virgen MD [address] [place] [address] PCP - General Family Practice 01/10/18 [facility] [address] [place] [address] Pharmacist Pharmacy 05/24/20 Kaitlyn Hernández, [facility] [address] [place] [address] Pharmacist Pharmacy 03/31/21 Inspectors And Regulatory Officers Relationship Specialty Start Date End Date Jeff Virgen MD [address] [place] [address] PCP - General Family Practice 01/10/18 Asad Rothman, [facility] [address] [place] [address] Pharmacist Pharmacy 05/24/20 Kaitlyn Hernández [facility] [address] [place] [address] Pharmacist Pharmacy 03/31/21 Inspectors And Regulatory Officers Relationship Specialty Start Date End Date Jeff Virgen MD [address] [place] [address] PCP - General Family Practice 01/10/18 Asad Rothman, [facility] [address] [place] [address] Pharmacist Pharmacy 05/24/20 Kaitlyn Hernández, [facility] [address] [place] [address] Pharmacist Pharmacy 03/31/21 Inspectors And Regulatory Officers Relationship Specialty Start Date End Date Jeff Virgen MD [address] [place] [address] PCP - General Family Practice 01/10/18 Asad Rothman, [facility] [address] [place] [address] Pharmacist Pharmacy 05/24/20 [facility]lyn [facility] [address] [place] [address] Pharmacist Pharmacy 03/31/21 Inspectors And Regulatory Officers Relationship Specialty Start Date End Date Jeff Virgen MD [address] [place] [address] PCP - General Family Practice 01/10/18 Asad Rothman [facility] [address] [place] [address] Pharmacist Pharmacy 05/24/20 Kaitlyn Hernández, [facility] [address] [place] [address] Pharmacist Pharmacy 03/31/21 Inspectors And Regulatory Officers Relationship Specialty Start Date End Date Jeff Virgen MD [address] [place] [address] PCP - General Family Practice 01/10/18 [facility] [address] [facility] [place] [address] Pharmacist Pharmacy 05/24/20 Kaitlyn Hern[facility] [address] [facility] [place] [address] Pharmacist Pharmacy 03/31/21 Inspectors And Regulatory Officers Relationship Specialty Start Date End Date Jeff Virgen MD [address] [facility] [place] [address] PCP - General Family Medicine 01/10/18 [facility] [address] [facility] [place] [address] Pharmacist Pharmacy 05/24/20 Kaitlyn HernándezCap[facility] [address] [facility] [place] [address] Pharmacist Pharmacy 03/31/21 Inspectors And Regulatory Officers Relationship Specialty Start Date End Date Jeff Virgen MD [address] [place] [address] PCP - General Family Medicine 01/10/18 [facility] [address] [place] [address] Pharmacist Pharmacy 05/24/20 Kaitlyn Hernán[facility] [address] [place] [address] Pharmacist Pharmacy 03/31/21 Inspectors And Regulatory Officers Relationship Specialty Start Date End Date Jeff Virgen MD [address] [place] [address] PCP - General Family Medicine 01/10/18 [facility] [address] [facility] [place] [address] Pharmacist Pharmacy 05/24/20 Edgar, KaitlynCap[facility] [address] [facility] [place] [address] Pharmacist Pharmacy 03/31/21 Inspectors And Regulatory Officers Relationship Specialty Start Date End Date Jeff Virgen MD [address] [place] [address] PCP - General Family Medicine 01/10/18 [facility] [address] [place] [address] Pharmacist Pharmacy 05/24/20 Kaitlyn Hernán[facility]Cap[facility] [address] [place] [address] Pharmacist Pharmacy 03/31/21 Inspectors And Regulatory Officers Relationship Specialty Start Date End Date Jeff Virgen MD [address] [place] [address] PCP - General Family Medicine 01/10/18 Asad Rothman, [facility] [address] [place] [address] Pharmacist Pharmacy 05/24/20 Kaitlyn Hernández, [facility] [address] [place] [address] Pharmacist Pharmacy 03/31/21 Inspectors And Regulatory Officers Relationship Specialty Start Date End Date Jeff Virgen MD [address] [place] [address] PCP - General Family Medicine 01/10/18 Asad Rothman, [facility] [address] [place] [address] Pharmacist Pharmacy 05/24/20 [place], Kaitlyn, [facility] [address] [place] [address] Pharmacist Pharmacy 03/31/21 Inspectors And Regulatory Officers Relationship Specialty Start Date End Date Jeff Virgen MD [address] [place] [address] PCP - General Family Medicine 01/10/18 Asad Rothman, [facility] [address] [place] [address] Pharmacist Pharmacy 05/24/20 Kaitlyn Hernández, [facility] [address] [place] [address] Pharmacist Pharmacy 03/31/21 Inspectors And Regulatory Officers Relationship Specialty Start Date End Date Jeff Virgen MD [address] [place] [address] PCP - General Family Medicine 01/10/18 Asad Rothman, [facility] [address] [place] [address] Pharmacist Pharmacy 05/24/20 Kaitlyn Hernández, [facility] [address] [place] [address] Pharmacist Pharmacy 03/31/21 Inspectors And Regulatory Officers Relationship Specialty Start Date End Date Jeff Virgen MD [address] [place] [address] PCP - General Family Medicine 01/10/18 Asad Rothman, [facility] [address] [place] [address] Pharmacist Pharmacy 05/24/20 Kaitlyn Hernández, [facility] [address] [place] [address] Pharmacist Pharmacy 03/31/21 Inspectors And Regulatory Officers Relationship Specialty Start Date End Date Jeff Virgen MD [address] [facility] [place] [address] PCP - General Family Medicine 01/10/18 [facility] [address] [place] [address] Pharmacist Pharmacy 05/24/20 Kaitlyn Hernán[facility] [address] [facility] [place] [address] Pharmacist Pharmacy 03/31/21 Inspectors And Regulatory Officers Relationship Specialty Start Date End Date Jeff Virgen MD [address] [place] [address] PCP - General Family Medicine 01/10/18 Asad RtohmanCap[facility] [address] [facility] [place] [address] Pharmacist Pharmacy 05/24/20 Kaitlyn HernándezCap[facility] [address] [facility] [place] [address] Pharmacist Pharmacy 03/31/21 Inspectors And Regulatory Officers Relationship Specialty Start Date End Date Jeff Virgen MD [address] [facility] [place] [address] PCP - General Family Medicine 01/10/18 [facility] [address] [place] [address] Pharmacist Pharmacy 05/24/20 Kaitlyn HernándezCap[facility] [address] [facility] [place] [address] Pharmacist Pharmacy 03/31/21 Inspectors And Regulatory Officers Relationship Specialty Start Date End Date Jeff Virgen MD [address] [place] [address] PCP - General Family Medicine 01/10/18 [facility] [address] [place] [address] Pharmacist Pharmacy 05/24/20 Kaitlyn HernándezCap[facility] [address] [place] [address] Pharmacist Pharmacy 03/31/21 Inspectors And Regulatory Officers Relationship Specialty Start Date End Date Jeff Virgen MD [address] [place] [address] PCP - General Family Medicine 01/10/18 Asad Rothman, [facility] [address] [place] [address] Pharmacist Pharmacy 05/24/20 Kaitlyn Hernández[facility] [address] [place] [address] Pharmacist Pharmacy 03/31/21 Inspectors And Regulatory Officers Relationship Specialty Start Date End Date Jeff Virgen MD [address] [place] [address] PCP - General Family Medicine 01/10/18 [facility] [address] [place] [address] Pharmacist Pharmacy 05/24/20 Kaitlyn HernándezCap[facility] [address] [place] [address] Pharmacist Pharmacy 03/31/21 Inspectors And Regulatory Officers Relationship Specialty Start Date End Date Jeff Virgen MD [address] [place] [address] PCP - General Family Medicine 01/10/18 Asad Rothman, [facility] [address] [place] [address] Pharmacist Pharmacy 05/24/20 EdgarKaitlyn, [facility] [address] [place] [address] Pharmacist Pharmacy 03/31/21 Inspectors And Regulatory Officers Relationship Specialty Start Date End Date Jeff Virgen MD [address] [place] [address] PCP - General Family Medicine 01/10/18 Stephan Gregoriocj, [facility] [address] [place] [address] Pharmacist Pharmacy 05/24/20 [place], Kaitlyn, [facility] [address] [place] [address] Pharmacist Pharmacy 03/31/21 Inspectors And Regulatory Officers Relationship Specialty Start Date End Date Jeff Virgen MD [address] [place] [address] PCP - General Family Medicine 01/10/18 Asad Rothman, [facility] [address] [place] [address] Pharmacist Pharmacy 05/24/20 Edgar, Kaitlyn, [facility] [address] [place] [address] Pharmacist Pharmacy 03/31/21 Inspectors And Regulatory Officers Relationship Specialty Start Date End Date Jeff Virgen MD [address] [place] [address] PCP - General Family Medicine 01/10/18 Stephan Gregoriocj, [facility] [address] [place] [address] Pharmacist Pharmacy 05/24/20 Jaqueline Hernándezily, [facility] [address] [place] [address] Pharmacist Pharmacy 03/31/21 Inspectors And Regulatory Officers Relationship Specialty Start Date End Date Jeff Virgen MD [address] [place] [address] PCP - General Family Medicine 01/10/18 Faizandarcie Gregoriocj, [facility] [address] [place] [address] Pharmacist Pharmacy 05/24/20 Jaqueline HernándezilyCap[facility] [address] [place] [address] Pharmacist Pharmacy 03/31/21 Inspectors And Regulatory Officers Relationship Specialty Start Date End Date Jeff Virgen MD [address] [place] [address] PCP - General Family Medicine 01/10/18 Stephan Gregoriocj, Formerly [facility] [address] [place] [address] Pharmacist Pharmacy 05/24/20 Kaitlyn Hernández, Formerly [facility] [address] [place] [address] Pharmacist Pharmacy 03/31/21 [employer]ors [employer]ulatory Officers Relationship Specialty Start Date End Date Jeff Virgen MD [address] [place] [address] PCP - General Family Medicine 01/10/18 Stephan Gregoriocj, Formerly [facility] [address] [place] [address] Pharmacist Pharmacy 05/24/20 Kaitlyn Hernández, Formerly [facility] [address] [place] [address] Pharmacist Pharmacy 03/31/21 Inspectors And Regulatory Officers Relationship Specialty Start Date End Date Jeff Virgen MD [address] [place] [address] PCP - General Family Medicine 01/10/18 Stephan Gregoriocj, Formerly [facility] [address] [place] [address] Pharmacist Pharmacy 05/24/20 [facility] [address] [place] [address] Pharmacist Pharmacy 03/31/21 Inspectors And Regulatory Officers Relationship Specialty Start Date End Date Jeff Virgen MD [address] [place] [address] PCP - General Family Medicine 01/10/18 Asad Rothman, Formerly [facility] [address] [place] [address] Pharmacist Pharmacy 05/24/20 Kaitlyn Hernández, Formerly [facility] [address] [place] [address] Pharmacist Pharmacy 03/31/21 Inspectors And Regulatory Officers Relationship Specialty Start Date End Date Jeff Virgen MD [address] [place] [address] PCP - General Family Medicine 01/10/18 Asad Rothman, Formerly [facility] [address] [place] [address] Pharmacist Pharmacy 05/24/20 Kaitlyn Hernández, Formerly [facility] [address] [place] [address] Pharmacist Pharmacy 03/31/21 Inspectors And Regulatory Officers Relationship Specialty Start Date End Date Jeff Virgen MD [address] [place] [address] PCP - General Family Medicine 01/10/18 FaizanAsad sprague, Formerly [facility] [address] [place] [address] Pharmacist Pharmacy 05/24/20 [place] [address] [place] [address] Pharmacist Pharmacy 03/31/21 Inspectors And Regulatory Officers Relationship Specialty Start Date End Date Jeff Virgen MD [address] [place] [address] PCP - General Family Medicine 01/10/18 FaizanAsad sprague, Formerly [facility] [address] [place] [address] Pharmacist Pharmacy 05/24/20 Jaqueline Hernándezily, Formerly [facility] [address] [place] [address] Pharmacist Pharmacy 03/31/21 Inspectors And Regulatory Officers Relationship Specialty Start Date End Date Jeff Virgen MD [address] [place] [address] PCP - General Family Medicine 01/10/18 Stephan Gregoriocj, Formerly [facility] [address] [place] [address] Pharmacist Pharmacy 05/24/20 Jaqueline Hernándezily, Formerly [facility] [address] [place] [address] Pharmacist Pharmacy 03/31/21 Inspectors And Regulatory Officers Relationship Specialty Start Date End Date Jeff Virgen MD [address] [place] [address] PCP - General Family Medicine 01/10/18 Kaitlyn Hernández, Formerly [facility] [address] [place] [address] Pharmacist Pharmacy 03/31/21 Inspectors And Regulatory Officers Relationship Specialty Start Date End Date Jeff Virgen MD [address] [place] [address] PCP - General Family Medicine 01/10/18 Edgar Kaitlyn, Formerly [facility] [address] [place] [address] Pharmacist Pharmacy 03/31/21 Inspectors [employer] Regulatory Officers Relationship Specialty Start Date End Date Jeff Virgen MD [address] [place] [address] PCP - General Family Medicine 01/10/18 FOR RECORDS PERTAINING TO PATIENTS WHO ARE OR HAVE BEEN ENROLLED IN A CHEMICAL DEPENDENCY/SUBSTANCEABUSE PROGRAM, SOME INFORMATION MAY BE OMITTED. This clinical summary was aggregated from multiple sources. Caution should be exercised in using it in the provision of clinical care. This summary normalizes information from multiple sources, and as a consequence, information in this document may materially change the coding, format and clinical context of patient data. In addition, data may be omitted in some cases. CLINICAL DECISIONS SHOULD BE BASED ON THE PRIMARY CLINICAL RECORDS. [facility]. provides no warranty or guarantee of the accuracy or completeness of information in this document.
--- NOTE | 2023-09-22 11:11 | RAD_ITS ---
HISTORY: chest pain. TECHNIQUE: XR Chest 1 View. COMPARISON: 11/21/2022. FINDINGS: CARDIOMEDIASTINAL BORDERS: Cardiac silhouette and mediastinal contour unchanged with mild cardiomegaly. LUNGS: Chronic scarring in the lung bases. PLEURA: No pleural effusion or pneumothorax seen. OSSEOUS STRUCTURES: Old left seventh rib fracture. RAD/Chest 1 View (Portable) IMPRESSION: No acute cardiopulmonary process identified. Electronically Signed: Amira Brewster MD at 11:54 EST ,
[2023-09-22 11:22] LABS: Platelet Count 210 K/mm3 (150-450)
[2023-09-22 12:00] VITALS: BP 154/91; PULSE 78; RESP 12; O2SAT 95
[2023-09-22 12:38] LABS: Reflex Troponin-HS? (from REC) Y
[2023-09-22 13:00] VITALS: BP 163/87; PULSE 78; RESP 16; O2SAT 93
[2023-09-22 13:08] LABS: Troponin-I HS 9 pg/mL (3.0-78.0)
[2023-09-22 14:00] VITALS: BP 117/57; PULSE 74; RESP 16; O2SAT 97
[2023-09-22 14:49] VITALS: BP 121/56; PULSE 75; RESP 16; O2SAT 96
== END 2023-09-22 14:55 | disposition home or self-care (01) ==
PROVIDERS: Emergency Provider Student in an Organized Health Care Education/Training Program; PCP Family Medicine; Visit Provider Student in an Organized Health Care Education/Training Program
DX: R07.9 Chest pain, unspecified (principal); I48.91 Unspecified atrial fibrillation; Z79.4 Long term (current) use of insulin; E11.9 Type 2 diabetes mellitus without complications; Z87.891 Personal history of nicotine dependence; Z79.01 Long term (current) use of anticoagulants; I10 Essential (primary) hypertension; E78.00 Pure hypercholesterolemia, unspecified; Z79.899 Other long term (current) drug therapy; Z79.84 Long term (current) use of oral hypoglycemic drugs; N40.0 Benign prostatic hyperplasia without lower urinary tract symptoms; Z90.49 Acquired absence of other specified parts of digestive tract
CPT/HCPCS: 71045; 80048; 84484; 85025; 93005; 99284; A4216

== ENCOUNTER 2024-04-10 16:41 | Emergency (ER) | payer MEDICARE, SELFPAY ==
[2024-04-10] VITALS (15 sets, daily range): BP systolic 136–172; BP diastolic 62–112; PULSE 73–81; RESP 14–24; TEMP 35.9–37.1; O2SAT 92–95; BMI 40.8
[2024-04-10 17:49] LABS: Absolute Lymphocyte Count 1.77 X10^3/uL (0.83-4.51); Absolute Neutrophil Count 6.7 X10^3/uL (2.0-7.7); Basophil# 0.03 X10^3/uL; Basophil% 0.3 % (0-1); Eosinophil# 0.28 X10^3/uL; Eosinophils% 2.8 % (0-5); Hematocrit 38.9 % (40-54); Hemoglobin 12.7 g/dL (13.0-16.5); Lymphocyte # 1.77 X10^3/ul (0.83-4.51); Lymphocyte % 17.7 % (19-41); Mean Corp Hgb Conc 32.6 g/dL (32-36); Mean Corpuscular Volume 85.9 fL (80-94); Mean Platelet Vol. 10.6 fl (6.2-12.0); Monocyte# 1.14 X10^3/uL; Monocyte% 11.4 % (0-10); NRBC Flagged by Analyzer 0 % (0-5); Neutrophil # 6.71 X10^3/uL (2.7-7.7); Neutrophil % 67.3 % (47-70); Platelet Count 253 K/mm3 (150-450); RBC Distribution Width CV 13.2 % (11.6-14.6); RBC Distribution Width SD 41.4 fl (35.1-43.9); Red Blood Count 4.53 M/mm3 (4.6-6.2)
[2024-04-10 17:53] LABS: ALB/GLOB Ratio 0.8 RATIO (0.9-2.4); AST(SGOT) 19 U/L (15-37); Alanine Aminotransfer ALT/SGPT 28 U/L (16-61); Albumin, Serum 3.4 g/dL (3.2-5.0); Alkaline Phosphatase 74 U/L (45-117); Anion Gap 4 (5-15); BUN 23 mg/dL (7-18); BUN/Creat Ratio 18.5 RATIO (10-20); Calcium,Total 9.4 mg/dL (8.5-10.1); Chloride 102 mmol/L (98-107); Creatinine, Serum 1.24 mg/dL (0.70-1.30); EST Glomerular Filtration Rate 60 mL/min (>60); Est Glom Filt Rate - Afr Amer 72 mL/min (>60); Estimated Creatinine Clearance 70.02 ml/min; Glucose 129 mg/dL (74-106); Potassium 4.2 mmol/L (3.5-5.1); Protein, Total 7.4 g/dL (6.4-8.2); Sodium Level 134 mmol/L (136-145)
--- NOTE | 2024-04-10 18:36 | CT_ITS ---
EXAM: CT ABDOMEN AND PELVIS WITHOUT INTRAVENOUS CONTRAST CLINICAL INDICATION: back pain TECHNIQUE: Helically acquired images were obtained of the abdomen and pelvis without intravenous contrast. This CT exam was performed using one or more of the following dose reduction techniques: automated exposure control, adjustment of the mA and/or kV according to patient size, and/or use of iterative reconstruction technique. COMPARISON: 03/31/2023 FINDINGS: LOWER THORAX: Coronary artery calcifications. Mild dependent atelectasis and/or scarring in the basilar dependent lungs. No cardiomegaly. No significant pericardial effusion. ABDOMEN: LIVER: No significant abnormality. Homogeneous. GALLBLADDER AND BILE DUCTS: Status post cholecystectomy. No intra- or extrahepatic biliary ductal dilation. PANCREAS: No significant abnormality. No focal cystic mass. SPLEEN: No significant abnormality. Normal size without focal cystic or solid mass. ADRENALS: No significant abnormality. No nodules. KIDNEYS AND URETERS: There is no urolithiasis or hydronephrosis. Nonspecific bilateral perinephric stranding is similar to the prior examination. Left renal cysts are similar to the prior examination for which no follow-up is indicated. Normal renal size and position. STOMACH AND BOWEL: No significant abnormality. No stomach or bowel distention. No focal inflammatory change. PELVIS: APPENDIX: Normal appendix in the right lower quadrant. BLADDER: The urinary bladder is mostly decompressed. REPRODUCTIVE: Normal as visualized. No mass. ABDOMEN and PELVIS: INTRAPERITONEAL SPACE: No significant abnormality. No ascites or other fluid collection. No free air. BONES/JOINTS: Degenerative changes in the spine. Bilateral hip joint arthrosis, right greater than left. No suspicious lytic or blastic abnormality. SOFT TISSUES: Fat-containing bilateral inguinal hernias and small fat-containing umbilical hernia. VASCULATURE: Atherosclerosis of the aorta without aneurysm. LYMPH NODES: No significant abnormality. No enlarged lymph nodes. CT/Abdomen/Pelvis without Cont IMPRESSION: No urolithiasis or hydronephrosis and no additional acute renal pathology. No additional acute pathology in the abdomen or pelvis. Electronically Signed: Ever Nunez DO at 19:46 EDT ,
--- NOTE | 2024-04-10 18:39 | EDS_ITS ---
HPI History of Present Illness Chief Complaint: Complaint Narrative Narrative: 79-year-old male with history of bladder stones presenting with hematuria. He states has been ongoing for 4 days. He has urinary frequency as well. No fevers or chills. No systemic signs or symptoms. Patient states he was seen by Dr. Daley today and he was told that he does not blood in his urine. He was told that he would have to follow-up for scope. Patient is on Eliquis. Patient was told his urinalysis was negative for infection today. Patient developed back pain today in the lower back. He states it is more in the central region. [facility] Medical History Restrictive airway disease Morbid obesity Pneumonia due to COVID-19 virus Left lower lobe pneumonia Acute respiratory failure with hypoxia Wears hearing aid Wears glasses Insulin dependent diabetes mellitus Psoriasis High cholesterol Restless legs Back pain Injury of back Dietary restriction Former smoker Shortness of breath on exertion Hypertension Right bundle branch 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 Nonobstructive atherosclerosis of coronary artery Type 2 diabetes mellitus Obesity BPH (benign prostatic hyperplasia) Hyperlipidemia Essential (primary) hypertension Atrial fibrillation with RVR (02/05/21) Enlarged prostate Home Medications ?Medication ?Instructions ?Recorded ?Last Taken ?Type simvastatin 40 mg tablet 40 mg PO QHS cholesterol 04/21/15 Unknown History apixaban 5 mg tablet (Eliquis) 5 mg PO BID #180 tabs 02/22/21 Unknown Rx aspirin 81 mg tablet,delayed 81 mg PO DAILY #90 tabs 02/22/21 07/22/21 Rx release carvedilol 25 mg tablet 25 mg PO BID #180 tabs 02/22/21 Unknown Rx losartan 100 1 tab PO DAILY 06/23/21 Unknown History mg-hydrochlorothiazide 12.5 mg tablet diltiazem HCl 120 mg 120 mg PO DAILY #90 caps 07/18/21 Unknown Rx capsule,extended release 24 hr insulin lispro 100 unit/mL 26 unit subcut TID diabetes 10/24/21 Unknown History subcutaneous pen (Humalog KwikPen (U-100) Insulin) metformin 500 mg tablet,extended 1,000 mg PO BID 10/24/21 Unknown History release 24 hr albuterol sulfate 90 mcg/actuation 1 inh inhalation Q6H PRN SOB #8.5 11/30/21 Unknown Rx aerosol inhaler grams colestipol 1 gram tablet 1 g PO DAILY 01/30/22 Unknown History spironolactone 25 mg tablet 25 mg PO DAILY #30 tabs 01/30/22 Unknown Rx finasteride 5 mg tablet 5 mg PO DAILY 10/27/22 Unknown History NUVOFLEX 2 cap PO DAILY 09/22/23 Unknown History famotidine 20 mg tablet 20 mg PO BID 09/22/23 Unknown History insulin glargine 100 unit/mL (3 90 unit subcut QHS 09/22/23 Unknown History mL) subcutaneous pen (Basaglar KwikPen U-100 Insulin) flecainide 150 mg tablet 150 mg PO Q12H 10/24/23 Unknown History turmeric root extract 500 mg 1,000 mg PO DAILY 10/24/23 Unknown History capsule Allergy/AdvReac Type Severity Reaction Status Date / Time amoxicillin Allergy Rash Verified 04/10/24 16:43 Family History Sister Colon cancer Brother Diabetes Mother Diabetes Heart disease Cancer Father Heart disease Cancer Diabetes Surgical History H/O wrist surgery History of left heart catheterization (02/07/21) Hx of umbilical hernia repair Hx of cholecystectomy Status post surgical manipulation of ankle joint H/O hemorrhoidectomy Social History household members: spouse Smoking Status: Former smoker how long ago did patient quit smokin years ago alcohol intake: never substance use type: does not use caffeine: Yes Type: coffee Number of servings: 1 ROS ROS ED Constitutional Constitutional ED: Denies chills, fever(s) or sweats Eyes Eyes: Denies blurry vision or change in vision ENT ENT ED: Denies ear pain or sore throat Cardiovascular Cardiovascular: Denies chest pain, palpitations or racing heartbeat Respiratory/Chest Respiratory/Chest: Denies cough, dyspnea or sputum Gastrointestinal Gastrointestinal: Denies abdominal pain, constipation, diarrhea, nausea or vomiting Genitourinary Genitourinary ED: Reports hematuria and urinary frequency Musculoskeletal Musculoskeletal: Denies arthralgias, myalgias or neck pain Integumentary Denies abscess, Abrasions or rash Neurologic Neurologic: Denies headache(s), paresthesias or weakness Psychiatric Psychiatric: Denies anxiety, depression, suicidal ideation or suicidal thoughts Endocrine Endocrinology: Denies polydipsia or polyuria EXAM Physical Exam Const Vital Signs: 04/10/24 16:43 04/10/24 17:55 04/10/24 18:04 Temperature 98.7 F 97.6 F L Temperature Source Temporal Oral Pulse Rate 80 79 79 Respiratory Rate 18 16 21 H Blood Pressure 155/68 H 148/62 H Blood Pressure Mean 97 90 Pulse Ox 94 92 93 Oxygen Delivery Method Room Air Room Air 04/10/24 18:15 04/10/24 18:30 04/10/24 18:54 Temperature 96.6 F L Temperature Source Temporal Pulse Rate 78 77 81 Respiratory Rate 19 H 17 14 Blood Pressure 149/62 H 136/67 H 142/112 H Blood Pressure Mean 83 85 122 Pulse Ox 94 95 94 Oxygen Delivery Method Room Air 04/10/24 18:54 04/10/24 18:55 04/10/24 19:00 Temperature Temperature Source Pulse Rate 81 79 Respiratory Rate 14 21 H Blood Pressure 142/112 H 149/66 H Blood Pressure Mean 122 88 Pulse Ox 93 94 Oxygen Delivery Method 04/10/24 19:15 04/10/24 19:30 04/10/24 19:45 Temperature Temperature Source Pulse Rate 79 78 Respiratory Rate 21 H 22 H 15 Blood Pressure 171/87 H 152/98 H 160/80 H Blood Pressure Mean 110 104 102 Pulse Ox 93 93 94 Oxygen Delivery Method Room Air Room Air 04/10/24 20:00 04/10/24 20:15 04/10/24 20:30 Temperature Temperature Source Pulse Rate 78 77 78 Respiratory Rate 24 H 19 H 22 H Blood Pressure 164/105 H 149/78 H 172/93 H Blood Pressure Mean 119 100 116 Pulse Ox 93 94 93 Oxygen Delivery Method Room Air Room Air Room Air 04/10/24 21:00 Temperature 98.4 F Temperature Source Pulse Rate 73 Respiratory Rate 20 H Blood Pressure 168/80 H Blood Pressure Mean 109 Pulse Ox 93 Oxygen Delivery Method Positive well nourished General Appearance ED: NAD; Negative for pallor HEENT Reports moist mucous membranes Eyes PERRL and EOMs intact bilaterally Resp normal respiratory effort Cardio regular rate and regular rhythm GI non-tender and non-distended no CVA tenderness Back/Spine Back/Spine Narrative: Tenderness to palpation lower midline lumbar spine. No deformities or step-off. No rashes. Extremity normal to inspection Neuro oriented x3, CN's II-XII intact bilaterally, moves all extremities, no focal motor deficits and no sensory deficits noted Sensorium / Orientation: alert Motor Exam: strength 5/5 throughout Psych mental status grossly normal Skin General Skin Exam: Negative for jaundice or pallor MDM MDM MDM Narrative Medical decision making narrative: 29-year-old male presenting with hematuria and frequency. Differential includes UTI, pyelonephritis, kidney stone, bladder stone. IM established. Patient declines analgesia. CBC and CMP are obtained and within normal limits. Urinalysis is pending. Will obtain a CT of the abdomen pelvis to rule out kidney stone or other acute pathology. CBC was obtained which shows a normal white blood cell count 10.0. Hemoglobin 12.7. Platelets are 253. Renal function and electrolytes within normal limits. LFTs are normal. Urinalysis negative for infection but does show occult blood. Patient was able to urinate without any difficulty. We obtained a CT of the abdomen pelvis without contrast to rule out kidney stone as an etiology and there is nothing acute on the CT. Patient counseled he will need to follow-up with Dr. Daley at his scheduled appointment in April. Return precautions were discussed. Impression: 1. Hematuria 2. Back pain Lab Data Attestation: I reviewed the patient's lab results. Labs: Laboratory Results - last 24 hr 04/10/24 04/10/24 17:28 18:45 WBC 10.0 RBC 4.53 L Hgb 12.7 L Hct 38.9 L MCV 85.9 MCH 28.0 MCHC 32.6 RDW Std Deviation 41.4 RDW Coeff of Lucia 13.2 Plt Count 253 MPV 10.6 Immature Gran % (Auto) 0.500 Neut % (Auto) 67.3 Lymph % (Auto) 17.7 L [place] % (Auto) 11.4 H Eos % (Auto) 2.8 Baso % (Auto) 0.3 Absolute Neuts (auto) 6.7 Absolute Lymphs (auto) 1.77 Nucleated RBC % 0 Sodium 134 L Potassium 4.2 Chloride 102 Carbon Dioxide 28.0 Anion Gap 4 L BUN 23 H Creatinine 1.24 Estim Creat Clear Calc 70.02 Est GFR (MDRD) Af Amer 72 Est GFR (MDRD) Non-Af 60 BUN/Creatinine Ratio 18.5 Glucose 129 H Calcium 9.4 Total Bilirubin 0.30 AST 19 ALT 28 Alkaline Phosphatase 74 Total Protein 7.4 Albumin 3.4 Globulin 4.0 Albumin/Globulin Ratio 0.8 L Urine Color Yellow Urine Clarity Cloudy Urine pH 6.5 Ur Specific [place] 1.010 Urine Protein 30 H Urine Glucose (UA) Normal Urine Ketones Negative Urine Occult Blood 250 H Urine Nitrite Negative Urine Bilirubin Negative Urine Urobilinogen Normal Ur Leukocyte Esterase 25 H Urine RBC > 100 SEEN Urine WBC 0-5 SEEN Ur Squamous Epith Cells 0-5 SEEN Urine Bacteria 1+ Urine Mucus 0 SEEN Radiography Diagnostic Testing: Clinical Impression(s) from Imaging Studies Abdomen/Pelvis CT 04/10/24 18:36 IMPRESSION: No urolithiasis or hydronephrosis and no additional acute renal pathology. No additional acute pathology in the abdomen or pelvis. Electronically Signed: Ever Nunez DO at 19:46 EDT , Discharge Plan Triage Chief Complaint: Complaint ED Provider: Tre Johnson Dx/Rx/DC Orders Instructions: ED Back Care Tips, ED Hematuria Prescriptions: No Action Eliquis 5 mg tablet 5 mg PO BID Qty: 180 3RF aspirin 81 mg tablet,delayed release (DR/EC) 81 mg PO DAILY Qty: 90 3RF carvedilol 25 mg tablet 25 mg PO BID Qty: 180 3RF losartan-hydrochlorothiazide 100-12.5 mg tablet 1 tab PO DAILY metformin 500 mg tablet extended release 24 hr 1,000 mg PO BID spironolactone 25 mg tablet 25 mg PO DAILY Qty: 30 2RF albuterol sulfate 90 mcg/actuation HFA aerosol inhaler 1 inh INHALATION Q6H PRN (Reason: SOB) Qty: 8.5 6RF flecainide 150 mg tablet 150 mg PO Q12H turmeric root extract 500 mg capsule 1,000 mg PO DAILY simvastatin 40 MG tablet 40 mg PO QHS insulin lispro [Humalog KwikPen Insulin] 100 unit/mL insulin pen 26 unit SUBCUT TID colestipol 1 gram tablet 1 g PO DAILY famotidine 20 mg tablet 20 mg PO BID Patient Comments: take 1 tablet by mouth twice a day insulin glargine [Basaglar KwikPen U-100 Insulin] 100 unit/mL (3 mL) insulin pen 90 unit subcut QHS NUVOFLEX 2 cap PO DAILY diltiazem HCl 120 mg capsule,extended release 24hr 120 mg PO DAILY Qty: 90 3RF finasteride 5 mg tablet 5 mg PO DAILY Primary Care Provider: Jeff Subramanian Referrals: Jeff Subramanian MD [Primary Care Provider] - Print Language: St Helen[place] Disposition Disposition: Home, Self Care Discharge Date/Time: 04/10/24 21:08
[2024-04-10 19:02] LABS: Mucous, Urine 0 SEEN /hpf (<or=2+)
[2024-04-10 19:07] LABS: Color, Urine Yellow (Yellow); Glucose, Dipstick Normal (Normal); Ketone-Dipstick Negative (Negative); Leukocyte Esterase-Dipstick 25 /ul (Negative); Nitrite-Dipstick Negative (Negative); Occult Blood-Urine 250 /ul (Negative); Protein-Dipstick 30 mg/dl (Negative); Urine Bilirubin Dipstick Negative (Negative); Urine Clarity Cloudy (Clear); Urine Urobilinogen Normal (Normal); Urine pH 6.5 (5.0 - 8.0)
[2024-04-10 19:17] LABS: Red Blood Cells-Urine > 100 SEEN /hpf (0-5); Squamous Epithelial Cells - UA 0-5 SEEN /hpf (0-5); White Blood Cells 0-5 SEEN /hpf (0-5)
[2024-04-10 19:19] LABS: Bacteria 1+ /hpf (None Seen)
== END 2024-04-10 21:08 | disposition home or self-care (01) ==
PROVIDERS: Emergency Provider Student in an Organized Health Care Education/Training Program; PCP Family Medicine; Visit Provider Student in an Organized Health Care Education/Training Program
DX: M54.9 Dorsalgia, unspecified (principal); E11.9 Type 2 diabetes mellitus without complications; Z79.4 Long term (current) use of insulin; I25.10 Atherosclerotic heart disease of native coronary artery without angina pectoris; R35.0 Frequency of micturition; E78.5 Hyperlipidemia, unspecified; Z87.891 Personal history of nicotine dependence; I10 Essential (primary) hypertension; Z79.01 Long term (current) use of anticoagulants; R31.9 Hematuria, unspecified; Z86.16 Personal history of COVID-19
CPT/HCPCS: 74176; 80053; 81001; 85025; 99282; A4216

== ENCOUNTER 2024-05-07 10:40 | Day surgery (SDC) | payer MEDICARE, SELFPAY ==
[2024-05-07] VITALS (11 sets, daily range): BP systolic 103–175; BP diastolic 44–107; PULSE 61–69; RESP 14–18; TEMP 36–36.8; O2SAT 92–98; BMI 39.9
--- NOTE | 2024-05-07 | IMM_PTH ---
PATIENT: INGRIS BALBUENA LOC: [facility] U#:[id number] AGE/SX: 79/M ROOM: RE05/07/[address]: Dr. Tom Daley MD : [id number] BED: DIS: 05/07/2024 SPEC #: [id number] RECD: 05/09/24 10:08 STATUS: GIORGIO REQ #: [id number] CHELSI: 05/07/24 00:[address]: Tom Daley DEPT: IMMUNOHISTOCHEMISTRY RECD BY: Markos Mcgarry ENTERED: 05/09/24 10:09 SP TYPE: IMMUNO OTHR DR: Dr. Jeff Subramanian MD Tissues: Urinary bladder, NOS Procedures: CD31 (initial) DESMIN (add) FACTOR VIII (add) PHYSICIAN & INSTITUTION [place] [id number] SPECIMEN INFORMATION: Tissue Source: Bladder tumor Clinical Info: Bladder tumor and enlarged prostate Specimen Number: [id number] CPT code: 15383,97331q1 METHODOLOGY: Deparaffinized sections of prefer/formalin-fixed tissue or PAP/DQ stained slides are incubated with monoclonal/polyclonal antibodies/oligonucleotide probes. Localization is made via biotin free immunoperoxidase method. Appropriate controls are performed and reacted as expected. Results on target cell population are indicated in the following table: RESULTS: ANTIBODY / CLONE RESULT CD31 (SHAY/70A) negative Factor VIII (R Ag) negative Desmin (CE-R-11) positive These tests were developed and their performance characteristics determined by [facility]. They may not have been cleared or approved by the U.S. Food and Drug Administration. The FDA has determined that such clearance or approval is not necessary. The above immunohistochemical/dualISH markers are ordered and reviewed by the Pathologist. INTERPRETATION: Urinary bladder tumor, transurethral resection: Papillary urothelial carcinoma. Case has been reviewed in consultation with Dr. Arteaga who concurs with the above diagnosis. IDC:[id number] VAUGHN/ 05/12/2024
[2024-05-07] MEDS: Lactated Ringers 1,000 ML 15 ML IV (11:32)
--- NOTE | 2024-05-07 11:43 | PCM.PRE.AN2 ---
ASA Classification* ASA Classification ASA Classification: 3 Assessment & Plan Anesthesia* Anesthesia Assessment Anesthesia Assessment: Discussed sedation and/or anesthesia options, risks, benefits, and alternatives with patient/parents/legal guardian/POA. Questions invited. The patient/parents/legal guardian/POA seems to understand and agrees to proceed with anesthesia plan. Reviewed the physical assessment, medical history, allergy history and patient home medications list prior to surgery/procedure/anesthetic and documented any changes. Performed airway and anesthesia risk assessments. Anesthesia Type Anesthesia Type: General (see written pre anesthesia record for full assessment) Anesthesia Focused Assessment* Temperature: 97 F Pulse Rate: 69 Blood Pressure: 156/76 Respiratory Rate: 16 Pulse Ox: 95 Airway Assessment Mouth opens: >3 cm Mallampati Score: III Focused Labs Anesthesia Preop lab: CBC WBC 10.0 K/mm3 (4.4-11.0) 04/10/24 17:28 RBC 4.53 M/mm3 (4.6-6.2) L 04/10/24 17:28 Hgb 12.7 g/dL (13.0-16.5) L 04/10/24 17:28 Hct 38.9 % (40-54) L 04/10/24 17:28 Plt Count 253 K/mm3 (150-450) 04/10/24 17:28 CHEMISTRY Potassium 4.2 mmol/L (3.5-5.1) 04/10/24 17:28 Sodium 134 mmol/L (136-145) L 04/10/24 17:28 Magnesium 2.0 mg/dL (1.6-2.6) 11/21/22 06:35 BUN 23 mg/dL (7-18) H 04/10/24 17:28 Creatinine 1.24 mg/dL (0.70-1.30) 04/10/24 17:28 Glucose 129 mg/dL (74-106) H 04/10/24 17:28 POC Glucose 132 mg/dL (74-106) H 02/25/23 02:44 TSH 3.15 uIU/mL (0.358-3.74) 02/06/21 04:00 COAG PT 12.8 SECONDS (11.7-14.9) 02/07/21 05:26 Pre-Assessment Diagnosis/Proposed Procedure Planned Operative Procedure(s): TURBT LARGE MITOMYCIN C TURP Anesthesia History Anesthesia History - apprentice painter brush: Anesthesia History - apprentice painter brush Hx Hospitalization No 05/05/24 14:46 Any Problems With Anesthesia No 05/05/24 14:46 Cholinesterase deficiency No 05/05/24 14:46 You/Your Family Experience No 05/05/24 14:46 fever (hyperthermia) with Relationship Recent Exposure to Contagious No 05/07/24 11:15 Disease Does patient have nerve No 05/05/24 14:46 stimulator Patient instructed to have device shut off --Does patient have Pacemaker No 05/07/24 11:15 or ICD? When Was Last Pacemaker Check QUESTION #4 FULL TEXT: You/Your Family Experience fever (hyperthermia) with Anesthesia Last Oral Intake Last Oral intake: Last Oral Intake NPO since 09:30 05/07/24 11:15 Meds taken in AM with sips of Yes 05/07/24 11:15 water? Meds patient instructed to SEE MAR 05/07/24 11:15 take am of surgery PONV PONV - apprentice painter brush: PONV - apprentice painter brush Female No 05/05/24 14:46 HX of Motion Sickness No 05/05/24 14:46 HX of N/V After Surgery No 05/05/24 14:46 Non-Smoker Yes 05/05/24 14:46 Duration of Surgery greater Yes 05/05/24 14:46 than 60 minutes Number of Risk Factors 2 05/05/24 14:46 PONV Score Moderate Risk 05/05/24 14:46 Height & Weight Height & Weight: Anesthesia: Height & Weight Height 6 ft 1 in 05/07/24 11:15 Weight: 137.438 kg 05/07/24 11:15 Body Mass Index (BMI) 39.9 05/07/24 11:15 Respiratory Assessment Respiratory Assessment - apprentice painter brush: Respiratory Tract Infection Hx - apprentice painter brush Hx Respiratory Tract Infection No 05/05/24 14:46 STOP Sleep Apnea STOP Sleep Apnea - apprentice painter brush: STOP Sleep Apnea - apprentice painter brush Hx Hypertension Yes: CONTROLLED WITH MEDS 05/05/24 14:46 Hx Sleep Apnea Yes 05/05/24 14:46 CPAP Yes: NONCOMPLIANT 05/05/24 14:46 BIPAP No 05/05/24 14:46 Do you snore loudly (louder than talking or can be heard Do you often feel tired/ fatigued/ sleepy during daytime? Has anyone observed you stop breathing during sleep? STOP Results Positive 05/05/24 14:46 QUESTION #5 FULL TEXT : Do you snore loudly (louder than talking or can be heard through closed doors)? 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 Specify any problems Hx of Preganancy in last 3 N/A 05/05/24 14:46 Months Nurse Filling Out Transfusion DSCHRIBER 05/05/24 14:46 & Questions: Date: 05/05/24 05/05/24 14:46 Time: 14:48 05/05/24 14:46 Patient unable to answer at this time (ie. confused, unrespo /Reproduction History /Reproductive History - apprentice painter brush: /Reproductive Hx- apprentice painter brush Hx Now No 05/05/24 14:46 Gestational Age (in weeks): EDC: Hx Hx Para Hx Section SAB No 05/05/24 14:46 Active Medications Active Medications: Current Medications Generic Name Dose Route Start Last Admin Trade Name Freq PRN Reason Stop Dose Admin Cefazolin Sodium 3 gm/ Sodium 115 mls @ 150 mls/hr 05/07/24 14:00 Chloride IV 05/07/24 14:45 PREOP ONE Mitomycin 40 mg/ N/A 40 mls @ 2,400 mls/hr 05/07/24 14:00 INSTILLAT 05/07/24 14:01 X1 ONE Lactated Ringer's 1,000 mls @ 15 mls/hr 05/07/24 11:00 05/07/24 11:32 IV 15 mls/hr .Q48H SATYA Administration PFSH Medical History Cancer Walker as ambulation aid Arthritis Bladder disease Prostate disease Complete edentulism, class III Gastric reflux CPAP (continuous positive airway pressure) dependence History of pain when walking History of edema History of echocardiogram History of stress test Cardiology follow-up encounter Blindness Bladder cancer Restrictive airway disease Morbid obesity Pneumonia due to COVID-19 virus Left lower lobe pneumonia Acute respiratory failure with hypoxia Wears hearing aid Wears glasses Insulin dependent diabetes mellitus Psoriasis High cholesterol Restless legs Back pain Injury of back Dietary restriction Former smoker Shortness of breath on exertion Hypertension Right bundle branch 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 Nonobstructive atherosclerosis of coronary artery Obesity BPH (benign prostatic hyperplasia) Hyperlipidemia Essential (primary) hypertension Atrial fibrillation with RVR (02/05/21) Home Medications ?Medication ?Instructions ?Recorded ?Last Taken ?Type simvastatin 40 mg tablet 40 mg PO QHS cholesterol 04/21/15 Unknown History apixaban 5 mg tablet (Eliquis) 5 mg PO BID #180 tabs 02/22/21 05/03/24 Rx aspirin 81 mg tablet,delayed 81 mg PO DAILY #90 tabs 02/22/21 04/30/24 Rx release carvedilol 25 mg tablet 25 mg PO BID #180 tabs 02/22/21 05/07/24 09:30 Rx losartan 100 1 tab PO DAILY 06/23/21 Unknown History mg-hydrochlorothiazide 12.5 mg tablet diltiazem HCl 120 mg 120 mg PO DAILY #90 caps 07/18/21 05/07/24 09:30 Rx capsule,extended release 24 hr insulin lispro 100 unit/mL 26 unit subcut TID diabetes 10/24/21 Unknown History subcutaneous pen (Humalog KwikPen (U-100) Insulin) metformin 500 mg tablet,extended 1,000 mg PO BID 10/24/21 Unknown History release 24 hr albuterol sulfate 90 mcg/actuation 1 inh inhalation Q6H PRN SOB #8.5 11/30/21 Unknown Rx aerosol inhaler grams colestipol 1 gram tablet 1 g PO DAILY 01/30/22 Unknown History spironolactone 25 mg tablet 25 mg PO DAILY #30 tabs 01/30/22 Unknown Rx finasteride 5 mg tablet 5 mg PO DAILY 10/27/22 Unknown History NUVOFLEX 1 cap PO DAILY 09/22/23 Unknown History famotidine 20 mg tablet 20 mg PO BID 09/22/23 05/07/24 09:30 History insulin glargine 100 unit/mL (3 90 unit subcut QHS 09/22/23 Unknown History mL) subcutaneous pen (Basaglar KwikPen U-100 Insulin) flecainide 150 mg tablet 150 mg PO Q12H 10/24/23 05/07/24 09:30 History turmeric root extract 500 mg 1,000 mg PO DAILY 10/24/23 Unknown History capsule oxybutynin chloride 10 mg 10 mg PO DAILY 05/05/24 Unknown History tablet,extended release 24 hr Allergy/AdvReac Type Severity Reaction Status Date / Time amoxicillin Allergy Rash Verified 05/07/24 11:11 Family History Sister Colon cancer Brother Diabetes Mother Diabetes Heart disease Cancer Father Heart disease Cancer Diabetes Surgical History Hx of right cataract extraction Hx of colonoscopy Hx of transurethral resection of prostate H/O wrist surgery History of left heart catheterization (02/07/21) Hx of umbilical hernia repair Hx of cholecystectomy Status post surgical manipulation of ankle joint H/O hemorrhoidectomy Social History household members: spouse Smoking Status: Former smoker how long ago did patient quit smokin years ago alcohol intake: never substance use type: does not use caffeine: Yes Type: coffee Number of servings: 1 Review of Systems (Anesthesia) ROS Narrative System reviewed and no additional complaints, except as documented.
[2024-05-07 11:49] LABS: Bedside Glucose 155 mg/dL (74-106)
[2024-05-07 12:00] LABS: Hemoglobin A1c 7.2 % (3.8-5.6)
--- NOTE | 2024-05-07 12:32 | PCM.POST.ANE ---
Anesthesia: Postop Eval I Current Vital Signs Temperature: 98.2 F Pulse Rate: 61 Blood Pressure: 117/44 Respiratory Rate: 14 Pulse Ox: 98 Oxygen Delivery Method: Nasal Cannula Oxygen Flow Rate (L/min): 3 Assessment Airway patent: Yes Spontaneous unlabored respirations: Yes Mental status: Awake and Calm nausea: No Vomiting: No Anesthesia Complication: No Fluid Hydration Crystalloid volume administer (ml): 600 Total IV fluid infused: 600 Progress Note Anesthesia document: Postop Eval 1 completed: Yes
[2024-05-07] MEDS: Cefazolin 3 GM in 0.9% Normal Saline (100mL Bag) 100 ML IV (12:45)
--- NOTE | 2024-05-07 12:54 | HP.PCM_ITS ---
HPI - General General Date of Service: 05/07/24 Chief Complaint: Bladder tumor and enlarged prostate HPI Narrative INGRIS BALBUENA, is a 79 M who presents for transurethral section of bladder tumor and redo TURP for some regrowth in the channel [facility] Medical History Cancer Walker as ambulation aid Arthritis Bladder disease Prostate disease Complete edentulism, class III Gastric reflux CPAP (continuous positive airway pressure) dependence History of pain when walking History of edema History of echocardiogram History of stress test Cardiology follow-up encounter Blindness Bladder cancer Restrictive airway disease Morbid obesity Pneumonia due to COVID-19 virus Left lower lobe pneumonia Acute respiratory failure with hypoxia Wears hearing aid Wears glasses Insulin dependent diabetes mellitus Psoriasis High cholesterol Restless legs Back pain Injury of back Dietary restriction Former smoker Shortness of breath on exertion Hypertension Right bundle branch 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 Nonobstructive atherosclerosis of coronary artery Obesity BPH (benign prostatic hyperplasia) Hyperlipidemia Essential (primary) hypertension Atrial fibrillation with RVR (02/05/21) Home Medications ?Medication ?Instructions ?Recorded ?Last Taken ?Type simvastatin 40 mg tablet 40 mg PO QHS cholesterol 04/21/15 Unknown History apixaban 5 mg tablet (Eliquis) 5 mg PO BID #180 tabs 02/22/21 05/03/24 Rx aspirin 81 mg tablet,delayed 81 mg PO DAILY #90 tabs 02/22/21 04/30/24 Rx release carvedilol 25 mg tablet 25 mg PO BID #180 tabs 02/22/21 05/07/24 09:30 Rx losartan 100 1 tab PO DAILY 06/23/21 Unknown History mg-hydrochlorothiazide 12.5 mg tablet diltiazem HCl 120 mg 120 mg PO DAILY #90 caps 07/18/21 05/07/24 09:30 Rx capsule,extended release 24 hr insulin lispro 100 unit/mL 26 unit subcut TID diabetes 10/24/21 Unknown History subcutaneous pen (Humalog KwikPen (U-100) Insulin) metformin 500 mg tablet,extended 1,000 mg PO BID 10/24/21 Unknown History release 24 hr albuterol sulfate 90 mcg/actuation 1 inh inhalation Q6H PRN SOB #8.5 11/30/21 Unknown Rx aerosol inhaler grams colestipol 1 gram tablet 1 g PO DAILY 01/30/22 Unknown History spironolactone 25 mg tablet 25 mg PO DAILY #30 tabs 01/30/22 Unknown Rx finasteride 5 mg tablet 5 mg PO DAILY 10/27/22 Unknown History NUVOFLEX 1 cap PO DAILY 09/22/23 Unknown History famotidine 20 mg tablet 20 mg PO BID 09/22/23 05/07/24 09:30 History insulin glargine 100 unit/mL (3 90 unit subcut QHS 09/22/23 Unknown History mL) subcutaneous pen (Basaglar KwikPen U-100 Insulin) flecainide 150 mg tablet 150 mg PO Q12H 10/24/23 05/07/24 09:30 History turmeric root extract 500 mg 1,000 mg PO DAILY 10/24/23 Unknown History capsule oxybutynin chloride 10 mg 10 mg PO DAILY 05/05/24 Unknown History tablet,extended release 24 hr Allergy/AdvReac Type Severity Reaction Status Date / Time amoxicillin Allergy Rash Verified 05/07/24 11:11 Family History Sister Colon cancer Brother Diabetes Mother Diabetes Heart disease Cancer Father Heart disease Cancer Diabetes Surgical History Hx of right cataract extraction Hx of colonoscopy Hx of transurethral resection of prostate H/O wrist surgery History of left heart catheterization (02/07/21) Hx of umbilical hernia repair Hx of cholecystectomy Status post surgical manipulation of ankle joint H/O hemorrhoidectomy Social History household members: spouse Smoking Status: Former smoker how long ago did patient quit smokin years ago alcohol intake: never substance use type: does not use caffeine: Yes Type: coffee Number of servings: 1 Vital Signs Vital Signs Vital Signs: 05/07/24 11:15 05/07/24 11:15 05/07/24 11:43 Temperature 97 F L 97 F L Temperature Source Temporal Pulse Rate 69 69 Respiratory Rate 16 16 Respiratory Pattern Normal Blood Pressure 156/76 H 156/76 H Blood Pressure Mean 102 Blood Pressure Source Monitor Blood Pressure Position Semi-Fowlers Blood Pressure Location Left Arm Pulse Ox 95 95 Oxygen Delivery Method Room Air Oxygen Flow Rate (L/min) 05/07/24 12:33 Temperature 98.2 F Temperature Source Pulse Rate 61 Respiratory Rate 14 Respiratory Pattern Blood Pressure 117/44 L Blood Pressure Mean Blood Pressure Source Blood Pressure Position Blood Pressure Location Pulse Ox 98 Oxygen Delivery Method Nasal Cannula Oxygen Flow Rate (L/min) 3 Weight Weight: 137.438 kg Body Mass Index (BMI) 39.9 Results Lab / Micro Data Labs: Laboratory Results - last 24 hr 05/07/24 11:17: POC Glucose 155 H 05/07/24 11:27: Hemoglobin A1c 7.2 H
--- NOTE | 2024-05-07 12:55 | DCINST_ITS ---
Discharge Instructions Diet Discharge Diet: No restrictions Activity Discharge Activity: Return to Normal Activity and May Not Drive (while taking narcotic pain medications.) Follow Up Care Please Follow Up With: Tom Daley MD When: Call [phone] for an appointment Test Results: Test results from this visit will be discussed in further detail at your follow- up appointment, if applicable. Discharge Plan Admission Primary Reason for Your Visit: turbt Attending Provider: Tom Daley Primary Care Provider: Jeff Subramanian Instructions Patient Instructions: Bladder Cancer TUR, Transurethral Bladder Tumor Dc Print Language: [place] Discharge Orders/Prescriptions Prescriptions: Continued aspirin 81 mg tablet,delayed release (DR/EC) 81 mg PO DAILY Qty: 90 3RF carvedilol 25 mg tablet 25 mg PO BID Qty: 180 3RF losartan-hydrochlorothiazide 100-12.5 mg tablet 1 tab PO DAILY metformin 500 mg tablet extended release 24 hr 1,000 mg PO BID spironolactone 25 mg tablet 25 mg PO DAILY Qty: 30 2RF albuterol sulfate 90 mcg/actuation HFA aerosol inhaler 1 inh INHALATION Q6H PRN (Reason: SOB) Qty: 8.5 6RF flecainide 150 mg tablet 150 mg PO Q12H turmeric root extract 500 mg capsule 1,000 mg PO DAILY simvastatin 40 MG tablet 40 mg PO QHS insulin lispro [Humalog KwikPen Insulin] 100 unit/mL insulin pen 26 unit SUBCUT TID colestipol 1 gram tablet 1 g PO DAILY famotidine 20 mg tablet 20 mg PO BID Patient Comments: take 1 tablet by mouth twice a day insulin glargine [Basaglar KwikPen U-100 Insulin] 100 unit/mL (3 mL) insulin pen 90 unit subcut QHS NUVOFLEX 1 cap PO DAILY oxybutynin chloride 10 mg tablet extended release 24hr 10 mg PO DAILY diltiazem HCl 120 mg capsule,extended release 24hr 120 mg PO DAILY Qty: 90 3RF finasteride 5 mg tablet 5 mg PO DAILY Held Eliquis 5 mg tablet 5 mg PO BID Qty: 180 3RF Hold Instructions: Resume on 05/21/24. Referrals / Follow Up: Tom Daley MD [Med Staff - Active Staff] - Jeff Subramanian MD [Primary Care Provider] - Disposition Disposition (needs filled in before D/C Order can be placed): Home, Self Care
--- NOTE | 2024-05-07 13:05 | BLB_PTH ---
PATIENT: INGRIS BALBUENA [place] [facility] [id number] AGE/SX: 79/M ROOM: RE05/07/[address]: Dr. Tom Daley MD : 1945 BED: DIS: 05/07/2024 SPEC #: [id number] RECD: 05/07/24 16:59 STATUS: GIORGIO HDZ #: [id number] CHELSI: 05/07/24 13:[address]: Tom Daley DEPT: SURGICAL PATHOLOGY RECD BY: Germán Ortiz ENTERED: 05/08/24 09:14 SP TYPE: TURB OTHR DR: Dr. Jeff Subramanian MD Tissues: Urinary bladder, NOS Procedures: Surgery Specimen Level V HEADER OPERATION: Transurethral resection bladder tumor PRE-OP DIAGNOSIS: Bladder tumor and enlarged prostate TISSUE SUBMITTED: Bladder tumor MICROSCOPIC DIAGNOSIS Urinary bladder tumor, transurethral resection: Urothelial carcinoma. See synoptic report below. AM/mr 05/09/2024 COMMENT BLADDER CANCER (TUR) SUMMARY Procedure: Transurethral resection of bladder tumor (TURBT) Tumor site: Not specified Histologic type: Papillary urothelial carcinoma Associated epithelial lesions: None identified Histologic grade: 1/3 (WHO low grade) Tumor configuration: Papillary Muscularis propria presence: Focally present and free of carcinoma Lymph vascular invasion: Not identified Tumor extension: Confined to urothelium Additional pathologic findings: Focal chronic inflammation PATHOLOGIC STAGE: The above summary is in compliance with [employer] [place] Path[employer] (CAP) Cancer Protocols Checklist and [place] Joint Committee on Cancer (AJCC), Staging Manual, 8th Ed. Immunohistochemistry ([id number]) supports the above diagnosis. Case has been reviewed in consultation with Dr. Arteaga who concurs with the above diagnosis. IDC:SJ MICROSCOPIC DESCRIPTION Slides are reviewed. GROSS DESCRIPTION Received in fixative is one container labeled with the patient's name and designated Bladder tumor. The specimen consists of multiple irregular fragments of light pratt soft tissue that in aggregate measure 3.0 x 1.0 x 0.3 cm. The specimen is totally submitted in one cassette. SJ.mr 05/08/2024 TC:0 CPT:34841
[2024-05-07] MEDS: MitoMYcin 40 MG in Syringe 1 EACH 2400 MG INSTILLAT (13:48)
--- NOTE | 2024-05-07 13:54 | PCM.OPRPT ---
Report of Operation Date of Procedure: 05/07/24 Pre-Operative Diagnosis: Multiple large bladder tumors extensive throughout the bladder Post-Operative Diagnosis: Same Surgery/Procedure Performed:: Transurethral section of bladder tumors multiple Description of Surgical Findings:: Patient presented to the hospital for treatment of a tumor that was found in the bladder with a very large bladder tumor. Patient understands is possible it may not be able to resect the entire tumor. Patient also understands is possible that the patient may need multiple procedures or more invasive procedures to cure him of this cancer. Patient was taken back to the operating room after smooth induction of anesthesia the patient was placed supine on the table. The patient was placed in dorsolithotomy position. The urethra and genitals prepped and draped in usual sterile fashion. I went into the bladder with a 30 degree lens and a cystoscope was performed and identified the tumor the tumors which was about 5 centimeters in size and occupying the entire floor, posterior wall, lateral reyes the of the bladder. Like a large carpet of tumors about 5x 7 x 0.5 cm in size. He had a wide open channel from prior turp for TUrP was not done. I then switched over to the 70 degree lens and inspected the rest of the bladder with a 70 degree lens to make sure there is no other tumors in the bladder and to identify all the tumor locations. The right and left ureteral orifice were identified. The tumor was involved in the both ureteral orifice. I then placed the Olympus bipolar resectoscope with a large loop into the bladder. I then started resected the tumor and started superficially shaving small little pieces working my way to the base of the tumor. As I went along I then cauterize any bleeders that were encountered during the resection. The tumor pieces were then flushed out of the bladder and continued resecting the tumor until finally I got down to the base of the tumor and the muscle of the bladder was then identified a small little bit of muscle was taken with the resection. The Ellik was used then to evacuate all the tumor pieces out of the bladder. I then cauterized extensively the tumor base and also circumferentially around where the tumor was. Again we made sure to evacuate all the pieces out the bladder. I made sure there was no more bleeding from the base of the bladder and then over the tumor pieces were then evacuated out and sent off as a specimen. After the resection of the entire tumor was completed then treatment with Mitomycin-C was performed. We then placed the catheter in the bladder and the patient was taken back to the PACU in stable condition. Surgeon: Tom Daley Type of Anesthesia: General Drains: 18 fr askew Estimated Blood Loss (mL): 0 Admit VTE Documentation VTE Present on Admission: No VTE Mechan Device Prophylaxis: SCD's VTE Pharm Prophylaxis ordered?: No
--- NOTE | 2024-05-07 14:03 | PCM.POST.ANE ---
Anesthesia: Postop Eval I Current Vital Signs Temperature: 97.8 F Pulse Rate: 67 Blood Pressure: 103/57 Respiratory Rate: 14 Pulse Ox: 93 Oxygen Delivery Method: Room Air Assessment Airway patent: Yes Spontaneous unlabored respirations: Yes Mental status: Awake and Calm nausea: No Vomiting: No Anesthesia Complication: No Fluid Hydration Crystalloid volume administer (ml): 500 Total IV fluid infused: 500 Progress Note Anesthesia document: Postop Eval 1 completed: Yes
[2024-05-07] MEDS: Ketorolac 15 MG/ML Vial IV (14:28)
--- NOTE | 2024-05-07 14:32 | POSTOPAN2_ITS ---
Anesthesia Postop Eval I Sum Postop Eval Completion status Anesthesia document: Postop Eval 1 completed: Yes Anesthesia Postop Eval I Summary Anesthesia Postop Eval I Summary: Anesthesia Postop Eval I: Assessment Summary Airway patent Yes 05/07/24 14:11 [email or web address] Spontaneous unlabored Yes 05/07/24 14:11 GYM [email or web address] respirations Mental status Awake,Calm 05/07/24 14:11 GYM [email or web address] nausea No 05/07/24 14:11 GYM [email or web address] Vomiting No 05/07/24 14:11 GYM [email or web address] Anesthesia Postop Eval I: Fluid Summary Crystalloid volume administer 500 05/07/24 14:11 GYM [email or web address] (ml) Colloids volume administered ( ml) Blood Product volume administered (ml) Total IV fluid infused 500 05/07/24 14:11 GYM [email or web address] Anesthesia Postop Eval I: Summary Notes Anesthesia Complication No 05/07/24 14:11 GYM [email or web address] Anesthesia Complication Comment: Post-operative progress note Anesthesia: Postop Eval II Evaluation Mental status: Awake Pain Level: 0 nausea: No Vomiting: No
--- NOTE | 2024-05-07 14:32 | PCM.POSTANE2 ---
Anesthesia Postop Eval I Sum Postop Eval Completion status Anesthesia document: Postop Eval 1 completed: Yes Anesthesia Postop Eval I Summary Anesthesia Postop Eval I Summary: Anesthesia Postop Eval I: Assessment Summary Airway patent Yes 05/07/24 14:11 [email or web address] [email or web address] Spontaneous unlabored Yes 05/07/24 14:11 SEAM [email or web address] respirations Mental status Awake,Calm 05/07/24 14:11 SEAM [email or web address] nausea No 05/07/24 14:11 SEAM [email or web address] Vomiting No 05/07/24 14:11 SEAM [email or web address] Anesthesia Postop Eval I: Fluid Summary Crystalloid volume administer 500 05/07/24 14:11 SEAM [email or web address] (ml) Colloids volume administered ( ml) Blood Product volume administered (ml) Total IV fluid infused 500 05/07/24 14:11 SEAM [email or web address] Anesthesia Postop Eval I: Summary Notes Anesthesia Complication No 05/07/24 14:11 SEAM [email or web address].LISETH Anesthesia Complication Comment: Post-operative progress note Anesthesia: Postop Eval II Evaluation Mental status: Awake Pain Level: 0 nausea: No Vomiting: No
--- NOTE | 2024-05-07 14:43 | SUR.PHASEI ---
1440 ROSADO CATHETER UNCLAMPED, DRAINS RED URINE
== END 2024-05-07 17:02 | disposition home or self-care (01) ==
LOC: SDC 10:41 → AC 10:43
PROVIDERS: Anesthesiology; PCP Family Medicine; Referring Provider Urology; Visit Provider Urology
PROC: 0T5B8ZZ Destruction of Bladder, Via Natural or Artificial Opening Endoscopic (ICD-10-PCS; CPT 51720; principal; 2024-05-07 12:55)
DX: C67.9 Malignant neoplasm of bladder, unspecified (principal); I48.0 Paroxysmal atrial fibrillation; Z79.4 Long term (current) use of insulin; E11.9 Type 2 diabetes mellitus without complications; E78.00 Pure hypercholesterolemia, unspecified; Z87.891 Personal history of nicotine dependence; Z86.16 Personal history of COVID-19; Z80.0 Family history of malignant neoplasm of digestive organs; I25.10 Atherosclerotic heart disease of native coronary artery without angina pectoris; I10 Essential (primary) hypertension; R97.20 Elevated prostate specific antigen [PSA]; Z90.49 Acquired absence of other specified parts of digestive tract; Z87.19 Personal history of other diseases of the digestive system; I35.0 Nonrheumatic aortic (valve) stenosis
CPT/HCPCS: 52240; 00912; 51720; 82962; 83036; 88307; 88341; 88342; J7120; J9280; J0744; J2405

== ENCOUNTER 2024-05-08 04:02 | Observation (INO) | payer MEDICARE, SELFPAY ==
[2024-05-08] VITALS (11 sets, daily range): BP systolic 133–190; BP diastolic 45–113; PULSE 72–86; RESP 15–20; TEMP 36.2–37.1; O2SAT 90–98; BMI 40.6
--- NOTE | 2024-05-08 04:13 | EDS_ITS ---
HPI History of Present Illness Chief Complaint: Complaint Narrative Narrative: 79-year-old male past medical history of bladder carcinoma, presents with his daughter because of gross hematuria and frequent urination status post bladder surgery yesterday at 1 PM. This was approximately 15 hours ago. They state that he had bladder carcinoma and Dr. Daley perform cystoscopy and removed a bunch of masses and did chemotherapy washing of the bladder surface. Patient went home, and in the middle of the night, he has had bloody urination. He states that he has the urge to go and then cannot make it to the bathroom in time and urinates gross red blood everywhere. He denies any fevers or chills. While he used to take a blood thinner, it was held prior to his surgery. His daughter states that she called Dr. Daley and was told that he needs to come to the emergency department for Perez catheter placement. [facility] Medical History Cancer Walker as ambulation aid Arthritis Bladder disease Prostate disease Complete edentulism, class III Gastric reflux CPAP (continuous positive airway pressure) dependence History of pain when walking History of edema History of echocardiogram History of stress test Cardiology follow-up encounter Blindness Bladder cancer Restrictive airway disease Morbid obesity Pneumonia due to COVID-19 virus Left lower lobe pneumonia Acute respiratory failure with hypoxia Wears hearing aid Wears glasses Insulin dependent diabetes mellitus Psoriasis High cholesterol Restless legs Back pain Injury of back Dietary restriction Former smoker Shortness of breath on exertion Hypertension Right bundle branch 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 Nonobstructive atherosclerosis of coronary artery Obesity BPH (benign prostatic hyperplasia) Hyperlipidemia Essential (primary) hypertension Atrial fibrillation with RVR (02/05/21) Home Medications ?Medication ?Instructions ?Recorded ?Last Taken ?Type simvastatin 40 mg tablet 40 mg PO QHS cholesterol 04/21/15 Unknown History apixaban 5 mg tablet (Eliquis) 5 mg PO BID #180 tabs 02/22/21 05/03/24 Rx aspirin 81 mg tablet,delayed 81 mg PO DAILY #90 tabs 02/22/21 04/30/24 Rx release carvedilol 25 mg tablet 25 mg PO BID #180 tabs 02/22/21 05/07/24 09:30 Rx losartan 100 1 tab PO DAILY 06/23/21 Unknown History mg-hydrochlorothiazide 12.5 mg tablet diltiazem HCl 120 mg 120 mg PO DAILY #90 caps 07/18/21 05/07/24 09:30 Rx capsule,extended release 24 hr insulin lispro 100 unit/mL 26 unit subcut TID diabetes 10/24/21 Unknown History subcutaneous pen (Humalog KwikPen (U-100) Insulin) metformin 500 mg tablet,extended 1,000 mg PO BID 10/24/21 Unknown History release 24 hr albuterol sulfate 90 mcg/actuation 1 inh inhalation Q6H PRN SOB #8.5 11/30/21 Unknown Rx aerosol inhaler grams colestipol 1 gram tablet 1 g PO DAILY 01/30/22 Unknown History spironolactone 25 mg tablet 25 mg PO DAILY #30 tabs 01/30/22 Unknown Rx finasteride 5 mg tablet 5 mg PO DAILY 10/27/22 Unknown History NUVOFLEX 1 cap PO DAILY 09/22/23 Unknown History famotidine 20 mg tablet 20 mg PO BID 09/22/23 05/07/24 09:30 History insulin glargine 100 unit/mL (3 90 unit subcut QHS 09/22/23 Unknown History mL) subcutaneous pen (Basaglar KwikPen U-100 Insulin) flecainide 150 mg tablet 150 mg PO Q12H 10/24/23 05/07/24 09:30 History turmeric root extract 500 mg 1,000 mg PO DAILY 10/24/23 Unknown History capsule oxybutynin chloride 10 mg 10 mg PO DAILY 05/05/24 Unknown History tablet,extended release 24 hr Allergy/AdvReac Type Severity Reaction Status Date / Time amoxicillin Allergy Rash Verified 05/08/24 04:03 Family History Sister Colon cancer Brother Diabetes Mother Diabetes Heart disease Cancer Father Heart disease Cancer Diabetes Surgical History Hx of right cataract extraction Hx of colonoscopy Hx of transurethral resection of prostate H/O wrist surgery History of left heart catheterization (02/07/21) Hx of umbilical hernia repair Hx of cholecystectomy Status post surgical manipulation of ankle joint H/O hemorrhoidectomy Social History household members: spouse Smoking Status: Former smoker how long ago did patient quit smokin years ago alcohol intake: never substance use type: does not use caffeine: Yes Type: coffee Number of servings: 1 ROS ROS ED ROS Narrative Constitutional: No fever, no chills. HEENT: No sore throat. No neck pain. No loss of vision. No rhinorrhea. Cardiovascular: No chest pain. No palpitations. No pedal edema. Respiratory: No cough, no shortness of breath. Abdominal: No abdominal pain. No nausea. No vomiting. Genitourinary: No dysuria. Positive hematuria. Urinary frequency. Musculoskeletal: No myalgias. No arthralgias. Neurologic: No headaches. No dizziness. No lightheadedness. Skin: No rash. No change in color. Psychiatric: No depression. No anxiety. EXAM Physical Exam Narrative Exam Narrative: Afebrile. Vital signs noted. HEENT: Normocephalic. Atraumatic. PERRL, EOMI. Neck soft and supple. No point tenderness or step off. Cardiovascular: Regular rate and rhythm. No murmurs, rubs, or gallops appreciated. Respiratory: No tachypnea. Lungs clear to auscultation bilaterally. Gastrointestinal: Abdomen soft, nontender, with normoactive bowel sounds. No rebound or guarding. Genitourinary: Visual inspection shows no active bleeding, no blood at meatus of penis. Neurological: Awake. Alert. Nonfocal, nonlateralizing. Hard of hearing. Skin: No rash. Normal color. No pallor. Musculoskeletal: No pedal edema. Full range of motion extremities. Const Vital Signs: 05/08/24 04:03 05/08/24 04:07 05/08/24 04:46 Temperature 97.6 F L 97.6 F L Temperature Source Temporal Temporal Pulse Rate 83 83 Respiratory Rate 16 16 Blood Pressure 190/113 H 190/113 H 159/69 H Blood Pressure Mean 138 138 99 Pulse Ox 98 93 Oxygen Delivery Method Room Air Room Air 05/08/24 05:07 05/08/24 06:00 05/08/24 07:00 Temperature 98.6 F 98.6 F 97.5 F L Temperature Source Oral Oral Temporal Pulse Rate 86 72 72 Respiratory Rate 18 18 15 Blood Pressure 166/76 H 159/73 H 163/75 H Blood Pressure Mean 106 101 104 Pulse Ox 90 98 Oxygen Delivery Method Room Air Room Air MDM MDM MDM Narrative Medical decision making narrative: I reviewed the patient's prior outpatient records. Perez catheter/three-way will be placed. I will check a CBC and a BMP to look at his kidney function and his hemoglobin to make sure he is not grossly anemic. I do feel this is more likely postoperative bleeding. I reviewed the patient's laboratory work and he has slightly elevated white count of 12.6 which I think is nonspecific, hemoglobin stable at 12.6 with hematocrit 39.4. Platelet count normal at 247. Sodium slightly low at 131 with potassium normal at 4.9, BUN of 26 and creatinine 1.22. Glucose is elevated at 186 but he has normal anion gap of 6. Urinalysis was obtained and sent and is positive for red blood cells but 0 WBCs. I do not feel antibiotics are indicated. His Perez catheter after placement with Uro-Jet is draining dark red urine. I discussed patient with Dr. Daley, who requested that the bladder be irrigated. After 1 L of manual irrigation, while more clear there are in termittent periods where is turning darker red. He will be hooked up to the constant bladder irrigation. Initially after half of the 3 L bag, his urine became more clear, but when the bag was clamped, it turned dark red again. As he was almost done with the second half of the 3 L bag, small clot started to pass, and his urine started to turn darker again. Given that he has been irrigated with 4 L, I will discuss patient with Dr. Daley. Dr. Daley states he will come to the emergency department and evaluate the patient. He will assign the patient to observation on the medical surgical floor. Patient is in stable condition. History & Record Review Discussion w/independent historian: Patient and Family (Daughter) Additional record(s) reviewed:: Prior ED visit and Prior labs Lab Data Attestation: I reviewed the patient's lab results. Labs: Laboratory Results - last 24 hr 05/08/24 05/08/24 04:27 04:40 WBC 12.6 H RBC 4.57 L Hgb 12.6 L Hct 39.4 L MCV 86.2 MCH 27.6 MCHC 32.0 RDW Std Deviation 42.3 RDW Coeff of Lucia 13.4 Plt Count 247 MPV 10.7 Immature Gran % (Auto) 0.400 Neut % (Auto) 85.5 H Lymph % (Auto) 6.7 L [place] % (Auto) 7.1 Eos % (Auto) 0.1 Baso % (Auto) 0.2 Absolute Neuts (auto) 10.8 H Absolute Lymphs (auto) 0.84 Nucleated RBC % 0 Sodium 131 L Potassium 4.9 Chloride 100 Carbon Dioxide 25.0 Anion Gap 6 BUN 26 H Creatinine 1.22 Estim Creat Clear Calc 70.94 Est GFR (MDRD) Af Amer 74 Est GFR (MDRD) Non-Af 61 BUN/Creatinine Ratio 21.3 H Glucose 186 H Calcium 9.1 Urine Color Red Urine Clarity Turbid Urine pH 7.0 Ur Specific [place] 1.015 Urine Protein 500 H Urine Glucose (UA) Normal Urine Ketones 5 H Urine Occult Blood 150 H Urine Nitrite Negative Urine Bilirubin Negative Urine Urobilinogen Normal Ur Leukocyte Esterase Negative Urine RBC > 100 SEEN Urine WBC 0 SEEN Ur Squamous Epith Cells 0 SEEN Urine Bacteria 2+ Urine Mucus 0 SEEN Discharge Plan Dx/Rx/DC Orders Clinical Impression: Gross hematuria, Bladder cancer, Post-op bleeding Disposition Disposition: Acute Care Hospital [facility]
[2024-05-08] MEDS: Lidocaine Jelly 2% 20 ML Syringe (URO-JET) 1 APPLIC TOPICAL (04:26)
[2024-05-08 04:45] LABS: Mucous, Urine 0 SEEN /hpf (<or=2+); Squamous Epithelial Cells - UA 0 SEEN /hpf (0-5); White Blood Cells 0 SEEN /hpf (0-5)
[2024-05-08 04:46] LABS: Absolute Lymphocyte Count 0.84 X10^3/uL (0.83-4.51); Absolute Neutrophil Count 10.8 X10^3/uL (2.0-7.7); Basophil# 0.02 X10^3/uL; Basophil% 0.2 % (0-1); Eosinophil# 0.01 X10^3/uL; Eosinophils% 0.1 % (0-5); Hematocrit 39.4 % (40-54); Hemoglobin 12.6 g/dL (13.0-16.5); Lymphocyte # 0.84 X10^3/ul (0.83-4.51); Lymphocyte % 6.7 % (19-41); Mean Corpuscular Hgb 27.6 pg (27.0-32.0); Mean Corpuscular Volume 86.2 fL (80-94); Mean Platelet Vol. 10.7 fl (6.2-12.0); Monocyte% 7.1 % (0-10); NRBC Flagged by Analyzer 0 % (0-5); Neutrophil # 10.78 X10^3/uL (2.7-7.7); Neutrophil % 85.5 % (47-70); Platelet Count 247 K/mm3 (150-450); RBC Distribution Width CV 13.4 % (11.6-14.6); RBC Distribution Width SD 42.3 fl (35.1-43.9); Red Blood Count 4.57 M/mm3 (4.6-6.2); White Blood Count 12.6 K/mm3 (4.4-11.0)
[2024-05-08 04:48] LABS: Color, Urine Red (Yellow); Glucose, Dipstick Normal (Normal); Ketone-Dipstick 5 mg/dl (Negative); Leukocyte Esterase-Dipstick Negative /ul (Negative); Nitrite-Dipstick Negative (Negative); Occult Blood-Urine 150 /ul (Negative); Protein-Dipstick 500 mg/dl (Negative); Specific Gravity, Urine 1.015 (1.002-1.030); Urine Bilirubin Dipstick Negative (Negative); Urine Clarity Turbid (Clear); Urine Urobilinogen Normal (Normal)
[2024-05-08 05:02] LABS: Bacteria 2+ /hpf (None Seen); Red Blood Cells-Urine > 100 SEEN /hpf (0-5)
[2024-05-08 05:03] LABS: Anion Gap 6 (5-15); BUN 26 mg/dL (7-18); BUN/Creat Ratio 21.3 RATIO (10-20); Calcium,Total 9.1 mg/dL (8.5-10.1); Chloride 100 mmol/L (98-107); Creatinine, Serum 1.22 mg/dL (0.70-1.30); EST Glomerular Filtration Rate 61 mL/min (>60); Est Glom Filt Rate - Afr Amer 74 mL/min (>60); Estimated Creatinine Clearance 70.94 ml/min; Glucose 186 mg/dL (74-106); Potassium 4.9 mmol/L (3.5-5.1); Sodium Level 131 mmol/L (136-145)
--- NOTE | 2024-05-08 07:22 | ED.RN ---
another bag of fluids hung for cbi. as soon as the 1st bag ran out his urine became bright red.
--- NOTE | 2024-05-08 07:33 | PCM.HP.STD ---
HPI - General General Date of Service: 05/08/24 Chief Complaint: s/p TURBT HPI Narrative INGRIS BALBUENA, is a 79 M who presents with bleeding s/p turbt admit for hematuria and irrigation. [facility], [facility] Medical History Cancer Walker as ambulation aid Arthritis Bladder disease Prostate disease Complete edentulism, class III Gastric reflux CPAP (continuous positive airway pressure) dependence History of pain when walking History of edema History of echocardiogram History of stress test Cardiology follow-up encounter Blindness Bladder cancer Restrictive airway disease Morbid obesity Pneumonia due to COVID-19 virus Left lower lobe pneumonia Acute respiratory failure with hypoxia Wears hearing aid Wears glasses Insulin dependent diabetes mellitus Psoriasis High cholesterol Restless legs Back pain Injury of back Dietary restriction Former smoker Shortness of breath on exertion Hypertension Right bundle branch 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 Nonobstructive atherosclerosis of coronary artery Obesity BPH (benign prostatic hyperplasia) Hyperlipidemia Essential (primary) hypertension Atrial fibrillation with RVR (02/05/21) Home Medications ?Medication ?Instructions ?Recorded ?Last Taken ?Type simvastatin 40 mg tablet 40 mg PO QHS cholesterol 04/21/15 Unknown History apixaban 5 mg tablet (Eliquis) 5 mg PO BID #180 tabs 02/22/21 05/03/24 Rx aspirin 81 mg tablet,delayed 81 mg PO DAILY #90 tabs 02/22/21 04/30/24 Rx release carvedilol 25 mg tablet 25 mg PO BID #180 tabs 02/22/21 05/07/24 09:30 Rx losartan 100 1 tab PO DAILY 06/23/21 Unknown History mg-hydrochlorothiazide 12.5 mg tablet diltiazem HCl 120 mg 120 mg PO DAILY #90 caps 07/18/21 05/07/24 09:30 Rx capsule,extended release 24 hr insulin lispro 100 unit/mL 26 unit subcut TID diabetes 10/24/21 Unknown History subcutaneous pen (Humalog KwikPen (U-100) Insulin) metformin 500 mg tablet,extended 1,000 mg PO BID 10/24/21 Unknown History release 24 hr albuterol sulfate 90 mcg/actuation 1 inh inhalation Q6H PRN SOB #8.5 11/30/21 Unknown Rx aerosol inhaler grams colestipol 1 gram tablet 1 g PO DAILY 01/30/22 Unknown History spironolactone 25 mg tablet 25 mg PO DAILY #30 tabs 01/30/22 Unknown Rx finasteride 5 mg tablet 5 mg PO DAILY 10/27/22 Unknown History NUVOFLEX 1 cap PO DAILY 09/22/23 Unknown History famotidine 20 mg tablet 20 mg PO BID 09/22/23 05/07/24 09:30 History insulin glargine 100 unit/mL (3 90 unit subcut QHS 09/22/23 Unknown History mL) subcutaneous pen (Basaglar KwikPen U-100 Insulin) flecainide 150 mg tablet 150 mg PO Q12H 10/24/23 05/07/24 09:30 History turmeric root extract 500 mg 1,000 mg PO DAILY 10/24/23 Unknown History capsule oxybutynin chloride 10 mg 10 mg PO DAILY 05/05/24 Unknown History tablet,extended release 24 hr Allergy/AdvReac Type Severity Reaction Status Date / Time amoxicillin Allergy Rash Verified 05/08/24 04:03 Family History Sister Colon cancer Brother Diabetes Mother Diabetes Heart disease Cancer Father Heart disease Cancer Diabetes Surgical History Hx of right cataract extraction Hx of colonoscopy Hx of transurethral resection of prostate H/O wrist surgery History of left heart catheterization (02/07/21) Hx of umbilical hernia repair Hx of cholecystectomy Status post surgical manipulation of ankle joint H/O hemorrhoidectomy Social History household members: spouse Smoking Status: Former smoker how long ago did patient quit smokin years ago alcohol intake: never substance use type: does not use caffeine: Yes Type: coffee Number of servings: 1 Vital Signs Vital Signs Vital Signs: 05/08/24 04:03 05/08/24 04:07 05/08/24 04:46 Temperature 97.6 F L 97.6 F L Temperature Source Temporal Temporal Pulse Rate 83 83 Respiratory Rate 16 16 Blood Pressure 190/113 H 190/113 H 159/69 H Blood Pressure Mean 138 138 99 Pulse Ox 98 93 Oxygen Delivery Method Room Air Room Air 05/08/24 05:07 05/08/24 06:00 05/08/24 07:00 Temperature 98.6 F 98.6 F 97.5 F L Temperature Source Oral Oral Temporal Pulse Rate 86 72 72 Respiratory Rate 18 18 15 Blood Pressure 166/76 H 159/73 H 163/75 H Blood Pressure Mean 106 101 104 Pulse Ox 90 98 Oxygen Delivery Method Room Air Room Air Weight Weight: 139.8 kg Body Mass Index (BMI) 40.6 Results Lab / Micro Data 05/08/24 04:27 05/08/24 04:27 Labs: Laboratory Results - last 24 hr 05/08/24 04:27: WBC 12.6 H, RBC 4.57 L, Hgb 12.6 L, Hct 39.4 L, MCV 86.2, MCH 27.6, MCHC 32.0, RDW Std Deviation 42.3, RDW Coeff of Lucia 13.4, Plt Count 247, MPV 10.7, Immature Gran % (Auto) 0.400, Neut % (Auto) 85.5 H, Lymph % (Auto) 6.7 L, [place] % (Auto) 7.1, Eos % (Auto) 0.1, Baso % (Auto) 0.2, Absolute Neuts (auto) 10.8 H, Absolute Lymphs (auto) 0.84, Nucleated RBC % 0, Sodium 131 L, Potassium 4.9, Chloride 100, Carbon Dioxide 25.0, Anion Gap 6, BUN 26 H, Creatinine 1.22, Estim Creat Clear Calc 70.94, Est GFR (MDRD) Af Amer 74, Est GFR (MDRD) Non-Af 61, BUN/Creatinine Ratio 21.3 H, Glucose 186 H, Calcium 9.1 05/08/24 04:40: Urine Color Red, Urine Clarity Turbid, Urine pH 7.0, Ur Specific [place] 1.015, Urine Protein 500 H, Urine Glucose (UA) Normal, Urine Ketones 5 H, Urine Occult Blood 150 H, Urine Nitrite Negative, Urine Bilirubin Negative, Urine Urobilinogen Normal, Ur Leukocyte Esterase Negative, Urine RBC > 100 SEEN, Urine WBC 0 SEEN, Ur Squamous Epith Cells 0 SEEN, Urine Bacteria 2+, Urine Mucus 0 SEEN Assessment & Plan Assessment/Plan (1) Post-op bleeding: PLAN: reg diet admit for bleeding. (2) Gross hematuria:
[2024-05-08] MEDS: Cefazolin 1 GM/50 ML BAG IV ×2 (08:08→13:35)
--- NOTE | 2024-05-08 08:32 | ED.RN ---
#3 bag of cbi fluids hung
[2024-05-08 08:57] LABS: Bedside Glucose 161 mg/dL (74-106)
[2024-05-08] MEDS: Insulin Lispro 100 UNIT/ML INSULN.PEN 26 UNIT SC ×3 (08:58→16:36)
--- NOTE | 2024-05-08 10:00 | EKG12_ITS ---
Test Reason : FILIPPO Blood Pressure : / mmHG Vent. Rate : 081 BPM Atrial Rate : 081 BPM P-R Int : 266 ms QRS Dur : 168 ms QT Int : 432 ms P-R-T Axes : 036 -79 036 degrees QTc Int : 501 ms Sinus rhythm with 1st degree A-V block with occasional Premature ventricular complexes Right bundle branch block Left anterior fascicular block Bifascicular block Abnormal ECG Confirmed by LAURA SAMUEL, SMITHA ([id number]), pictures editor CARLOTA SUTTON ([id number]) on 05/09/2024 6:52:08 AM Referred By: Confirmed By:LUANA SANCHEZ MD
[2024-05-08] MEDS: Losartan Potassium 100 MG Tablet PO (10:40)
[2024-05-08] MEDS: Finasteride 5 MG Tablet PO (10:40)
[2024-05-08] MEDS: Colestipol 1 GM TABLET PO (10:40)
[2024-05-08] MEDS: Famotidine 20 MG Tablet PO ×2 (10:40→22:02)
[2024-05-08] MEDS: Flecainide 150 MG Tablet PO ×2 (10:40→22:03)
[2024-05-08] MEDS: dilTIAZem CD 120 MG Capsule PO (10:40)
[2024-05-08] MEDS: Spironolactone 25 MG Tablet PO (10:40)
[2024-05-08] MEDS: 0.9% Saline Lock 10 ML Syringe IV (10:40)
[2024-05-08] MEDS: Tolterodine Tartrate 2 MG CAP.SA PO (10:40)
[2024-05-08] MEDS: Carvedilol 25 MG Tablet PO ×2 (10:40→22:01)
[2024-05-08] MEDS: hydroCHLOROthiazide 12.5mg 12.5 MG PO (10:40)
--- NOTE | 2024-05-08 10:58 | NURSING ---
aware pt c/o chestpain. in to see pt. pt states was midsternal chest pressure. CPS completed EKG. printed old ekg for comparison and paged Dr. Daley
--- NOTE | 2024-05-08 11:09 | NURSING ---
left message w/ Dr. Daley's nurse regarding pt's c/o chest pressure with EKG obtained.
[2024-05-08] MEDS: Lactated Ringers 1,000 ML 125 ML IV ×2 (11:23→22:18)
[2024-05-08 11:48] LABS: Bedside Glucose 269 mg/dL (74-106)
[2024-05-08 12:40] LABS: Troponin-I HS 8 pg/mL (3.0-78.0)
--- NOTE | 2024-05-08 12:54 | PCM.PN.HOSP ---
Reason for Visit Reason for Visit: Diagnoses Gross hematuria (05/08/24) Subjective Subjective Patient admitted per urology secondary to gross hematuria following recent bladder surgery the day prior to presentation as well as frequent urination. Unfortunately following admission patient had onset of midsternal chest discomfort but denied any concurrent dyspnea, diaphoresis or nausea which quickly abated but given this presentation hospitalist consultation requested. Upon current evaluation patient reports complete resolution of chest discomfort and has had no reoccurrence. Discussed further his recent evaluation with unremarkable EKG and initial unremarkable cardiac enzymes. Patient denies fevers, chills, nausea, emesis, abdominal pain. Objective Data Objective Data Vital Signs: Vital Signs Temp Pulse Resp BP Pulse Ox O2 Del Method 98.7 F 85 20 H 160/65 H 96 Room Air 05/08/24 09:50 05/08/24 09:50 05/08/24 09:50 05/08/24 09:50 05/08/24 09:50 05/08/24 09:50 Oxygen Delivery Method Room Air Weight: 308 lb 3.3 oz Body Mass Index (BMI) 40.6 Intake & Output: Intake and Output for Last 24 Hours 05/06/24 05/07/24 05/08/24 23:59 23:59 23:59 Intake Total 50 / 50 Output Total 230 / 230 Balance -180 / -180 Lab / Micro Data 05/08/24 04:27 05/08/24 04:27 Labs: Laboratory Results - last 24 hr 05/08/24 04:27: WBC 12.6 H, RBC 4.57 L, Hgb 12.6 L, Hct 39.4 L, MCV 86.2, MCH 27.6, MCHC 32.0, RDW Std Deviation 42.3, RDW Coeff of Lucia 13.4, Plt Count 247, MPV 10.7, Immature Gran % (Auto) 0.400, Neut % (Auto) 85.5 H, Lymph % (Auto) 6.7 L, [place] % (Auto) 7.1, Eos % (Auto) 0.1, Baso % (Auto) 0.2, Absolute Neuts (auto) 10.8 H, Absolute Lymphs (auto) 0.84, Nucleated RBC % 0, Sodium 131 L, Potassium 4.9, Chloride 100, Carbon Dioxide 25.0, Anion Gap 6, BUN 26 H, Creatinine 1.22, Estim Creat Clear Calc 70.94, Est GFR (MDRD) Af Amer 74, Est GFR (MDRD) Non-Af 61, BUN/Creatinine Ratio 21.3 H, Glucose 186 H, Calcium 9.1 05/08/24 04:40: Urine Color Red, Urine Clarity Turbid, Urine pH 7.0, Ur Specific [place] 1.015, Urine Protein 500 H, Urine Glucose (UA) Normal, Urine Ketones 5 H, Urine Occult Blood 150 H, Urine Nitrite Negative, Urine Bilirubin Negative, Urine Urobilinogen Normal, Ur Leukocyte Esterase Negative, Urine RBC > 100 SEEN, Urine WBC 0 SEEN, Ur Squamous Epith Cells 0 SEEN, Urine Bacteria 2+, Urine Mucus 0 SEEN 05/08/24 08:39: POC Glucose 161 H 05/08/24 11:22: POC Glucose 269 H 05/08/24 12:13: Troponin I High Sens 8 Physical Exam Narrative Physical Examination: General: Awake, alert, oriented x 3 and cooperative, seated upright in the MS bed, no acute complaints, no recurrent chest discomfort. Skin: Normal color, normal turgor, no icterus, no cyanosis except occasional stage ecchymoses, mild bilateral lower extremity venous skin changes. HEENT: AT/NC, EOMI, PERRLA, MMM. Lungs: CTA bilaterally, moderate effort, mild decrease BL bases, no rales, ronchi or wheezing. Heart: Regular rate and rhythm; no gallop, rub audible. Abdomen: Soft, morbidly obese, NTTP, difficult to appreciate distention given habitus, distant BS. Extremities: No cyanosis, no clubbing, mild ankle not markedly pitting edema, see skin. Neurological: Patient awake, alert, oriented as noted, cognitive function intact; pupils equally reactive to light and accommodation, cranial nerves grossly normal, moving all 4 extremities, no focal deficits, strength mildly globally creased although difficult given patient currently maintained on constant bladder irrigation Psychiatric: Affect appears normal, no acute evidence of depressive or anxiety feelings. Assessment & Plan Assessment/Plan (1) Gross hematuria: PLAN: Plan The patient is an 79 y/o M w/ PMHx: HTN, HLD, Nonobstructive CAD, Diabetes mellitus type II, Morbid obesity, GERD, PAF, Former tobacco use, Bladder cancer with 05/07/24 transurethral resection of bladder tumors, multiple per Dr. Daley who presents to the [facility] ED on 05/08/2024 with onset of hematuria and urinary frequency with referral per urology to present to the ED for further evaluation. #1. Acute hematuria with frequent urination status post recent bladder surgery with history of underlying bladder carcinoma: Admitted per urology, ongoing continuous bladder irrigation per surgery discretion, recommend hold on aspirin and apixaban until clinically improved and amenable for resumption by surgery service, admission presentation hemoglobin 12.6 with most recently noted prior to this 04/10/2024 hemoglobin 12.7, continue to trend. #2. Chest pain, resolved: Noted onset of chest pain following presentation/admission, EKG with no acute concerning findings, magnesium 2.1, initial troponin 8 with repeat delta 8, will continue to trend cardiac enzymes, maintain on telemetry monitoring in the interim, temporarily holding aspirin, Eliquis as noted above number 1, add back once appropriate, continue Coreg, losartan as BP allows. #3. Hypertension: Continue home regimen including Coreg, losartan, hydrochlorothiazide, diltiazem with hold parameters as needed. #4. PAF: We will continue patient home flecainide regimen, given #1 hospital service amenable to temporarily holding apixaban, resume once hematuria has resolved per urology discretion. #5. Nonobstructive CAD: Temporally hold aspirin, Eliquis, continue losartan, Coreg and statin therapy. #6. Diabetes mellitus type II: May consider holding oral home regimen, continue home insulin regimen, ADA diet, accu checks w/ ISS. #7. Hyperlipidemia: Continue patient home statin therapy. #8. BPH: Continue patient home finasteride regimen. #9. GERD: Continue patient on famotidine regimen. #10. Former tobacco use: Encourage continued tobacco cessation #11. CJ: Continue CPAP therapy nightly. #12. DVT prophylaxis: Encourage SCDs, amenable to holding Eliquis given presentation #1, resume once hematuria completely resolved. Charges/Coding Visit Charges Inpatient E&M: 11411 [facility] L3
[2024-05-08 13:19] LABS: Magnesium 2.1 mg/dL (1.6-2.6)
[2024-05-08 14:09] LABS: Troponin-I HS 8 pg/mL (3.0-78.0)
--- NOTE | 2024-05-08 16:03 | CHAPLAIN ---
Type of Pastoral Visit _x__ Initial Visit ___ Follow-up Visit ___ On-call Visit ___ General Patient Visit ___ Spiritual Assessment ___ Family Conference ___ Bereavement ___ Rapid Response ___ Code Blue ___ Other (describe below) Pastoral Care Referral From _x__ Patient _x__ Family ___ Nurse ___ Physician ___ Geoscience Specialist ___ Firestopper Installer ___ Other (describe below) Sacrament/Intervention _x__ Active listening ___ Anointing ___ Mandaen ___ Bereavement ___ Communion _x__ Stephanie exploration ___ _x__ Life review _x__ Prayer ___ Reconciliation ___ Sacrament of Sick _x__ Supportive presence ___ Wedding ___ Other (describe below) Pastoral Comments patient has been seen previously in past admissions; pt gives updates on his health; daughter is present and adds to the information and conversation; pt shows humor throughout the visit and also affirms his stephanie in God for his future; daughter is interactive and very supportive with her father; prayers and presence were welcomed
[2024-05-08] MEDS: Insulin Lispro 100 UNIT/ML INSULN.PEN SC ×2 (16:36→21:50)
[2024-05-08] MEDS: metFORMIN (XR) 500 MG Tablet 1000 MG PO (16:37)
[2024-05-08 17:01] LABS: Bedside Glucose 290 mg/dL (74-106)
[2024-05-08 19:21] LABS: Troponin-I HS 10 pg/mL (3.0-78.0)
[2024-05-08] MEDS: Insulin Glargine-YFGN 100 UNIT/ML Pen 90 UNIT SC (21:48)
[2024-05-08] MEDS: Docusate Sodium 100 MG Capsule 200 MG PO (22:00)
[2024-05-08] MEDS: Atorvastatin Calcium 20 MG Tablet PO (22:02)
[2024-05-08 22:31] LABS: Bedside Glucose 192 mg/dL (74-106)
[2024-05-09 00:25] VITALS: BP 121/52; PULSE 71; RESP 16; TEMP 36.4; O2SAT 95
--- NOTE | 2024-05-09 03:05 | CPS ---
Patient refused PAP therapy for the night.
[2024-05-09 05:48] VITALS: BP 168/88; PULSE 72; RESP 22; TEMP 36; O2SAT 99
[2024-05-09 05:53] VITALS: BP 168/88; PULSE 72
[2024-05-09] MEDS: hydrALAZINE 20 MG/ML Vial 10 MG IV (05:53)
[2024-05-09] MEDS: 0.9% Saline Lock 10 ML Syringe IV ×2 (05:53→11:52)
[2024-05-09] MEDS: Lactated Ringers 1,000 ML 125 ML IV (06:00)
--- NOTE | 2024-05-09 06:18 | PN.HOSP_ITS ---
Reason for Visit Reason for Visit: Diagnoses Gross hematuria (05/08/24) Subjective Subjective Patient with no acute events overnight per self and per nursing report. He denies any recurrent chest discomfort but does report ongoing dark red appearing urine in the catheter. Discussed recent EKG which was unremarkable and full serial cardiac enzyme remained normal range. Also discussed that despite urine findings hemoglobin is remained stable fortunately. Patient denies fevers, chills, nausea, emesis, abdominal pain, chest pain or dyspnea. Objective Data Objective Data Vital Signs: Vital Signs Temp Pulse Resp BP Pulse Ox O2 Del Method 96.8 F L 72 22 H 168/88 H 99 Room Air 05/09/24 05:48 05/09/24 05:53 05/09/24 05:48 05/09/24 05:53 05/09/24 05:48 05/09/24 05:48 Oxygen Delivery Method Room Air Weight: 308 lb 3.3 oz Body Mass Index (BMI) 40.6 Intake & Output: Intake and Output for Last 24 Hours 05/07/24 05/08/24 05/09/24 23:59 23:59 23:59 Intake Total 1100 / 1300 1262.5 / 1262.5 Output Total 230 / 1930 3600 / 3600 Balance 870 / -630 -2337.5 / -2337.5 Lab / Micro Data 05/09/24 06:17 05/09/24 06:17 Labs: Laboratory Results - last 24 hr 05/08/24 08:39: POC Glucose 161 H 05/08/24 11:22: POC Glucose 269 H 05/08/24 12:13: Magnesium 2.1, Troponin I High Sens 8 05/08/24 13:32: Troponin I High Sens 8 05/08/24 16:33: POC Glucose 290 H 05/08/24 18:22: Troponin I High Sens 10 05/08/24 21:42: POC Glucose 192 H Physical Exam Narrative Physical Examination: General: Awake, alert, oriented x 3 and cooperative, seated upright in the [place] bed off the side, no acute complaints, denies any recurrent chest discomfort. Skin: Normal color, normal turgor, no icterus, no cyanosis except occasional stage ecchymoses, mild bilateral lower extremity venous skin changes. HEENT: AT/NC, EOMI, PERRLA, MMM. Lungs: CTA bilaterally, moderate effort, mild decrease BL bases, no rales, ronchi or wheezing. Heart: Regular rate and rhythm; no gallop, rub audible. Abdomen: Soft, morbidly obese, NTTP, difficult to appreciate distention given habitus, distant BS, Perez bag in place with still dark red appearing urine. Extremities: No cyanosis, no clubbing, mild ankle not markedly pitting edema, see skin. Neurological: Patient awake, alert, oriented as noted, cognitive function intact; pupils equally reactive to light and accommodation, cranial nerves grossly normal, moving all four extremities, no focal deficits, strength mildly globally creased. Psychiatric: Affect appears normal, no acute evidence of depressive or anxiety feelings. Assessment & Plan Assessment/Plan (1) Gross hematuria: PLAN: Plan The patient is an 79 y/o M w/ PMHx: HTN, HLD, Nonobstructive CAD, Diabetes mellitus type II, Morbid obesity, GERD, PAF, Former tobacco use, Bladder cancer with 05/07/24 transurethral resection of bladder tumors, multiple per Dr. Daley who presents to the [facility] ED on 05/08/2024 with onset of hematuria and urinary frequency with referral per urology to present to the ED for further evaluation. #1. Acute hematuria with frequent urination status post recent bladder surgery with history of underlying bladder carcinoma: Admitted per urology, ongoing continuous bladder irrigation per surgery discretion, recommend hold on aspirin and apixaban until clinically improved and amenable for resumption by surgery service, admission presentation hemoglobin 12.6 with most recently noted prior to this 04/10/2024 hemoglobin 12.7, 05/09/2024 hemoglobin 12.6, has remained stable. Unclear given ongoing hematuria if urology will opt to perform a cystoscopy to further assess. #2. Chest pain, resolved: Noted onset of chest pain following presentation/admission, EKG with no acute concerning findings, magnesium 2.1, initial troponin 8 with repeat delta 8-->10, no further events, at this point de-escalate off cardiac monitoring. Given presentation patient aspirin, Eliquis being held as noted #1, add back once appropriate. #3. Hypertension: Continue home regimen including Coreg, losartan, hydrochlorothiazide, diltiazem with hold parameters as needed. #4. PAF: We will continue patient home flecainide regimen, given #1 hospital service amenable to temporarily holding apixaban, resume once hematuria has resolved per urology discretion. #5. Nonobstructive CAD: Temporally hold aspirin, Eliquis, continue losartan, Coreg and statin therapy. #6. Diabetes mellitus type II: May consider holding oral home regimen, continue home insulin regimen, ADA diet, accu checks w/ ISS. #7. Hyperlipidemia: Continue patient home statin therapy. #8. BPH: Continue patient home finasteride regimen. #9. GERD: Continue patient on famotidine regimen. #10. Former tobacco use: Encourage continued tobacco cessation #11. CJ: Continue CPAP therapy nightly. #12. DVT prophylaxis: Encourage SCDs, amenable to holding Eliquis given presentation #1, resume once hematuria completely resolved. Charges/Coding Visit Charges Inpatient E&M: 31832 Subs Hosp L2
[2024-05-09 07:07] LABS: Absolute Neutrophil Count 12.2 X10^3/uL (2.0-7.7); Basophil# 0.05 X10^3/uL; Basophil% 0.3 % (0-1); Eosinophil# 0.09 X10^3/uL; Eosinophils% 0.6 % (0-5); Hemoglobin 12.6 g/dL (13.0-16.5); Lymphocyte % 12.9 % (19-41); Mean Corp Hgb Conc 32.3 g/dL (32-36); Mean Corpuscular Hgb 27.9 pg (27.0-32.0); Mean Corpuscular Volume 86.5 fL (80-94); Mean Platelet Vol. 10.9 fl (6.2-12.0); Monocyte# 1.73 X10^3/uL; Monocyte% 10.6 % (0-10); NRBC Flagged by Analyzer 0 % (0-5); Neutrophil # 12.23 X10^3/uL (2.7-7.7); Neutrophil % 75.1 % (47-70); POSITIVE DIFFERENTIAL YES; Platelet Count 251 K/mm3 (150-450); RBC Distribution Width CV 13.6 % (11.6-14.6); Red Blood Count 4.51 M/mm3 (4.6-6.2); White Blood Count 16.3 K/mm3 (4.4-11.0)
[2024-05-09 07:16] LABS: Differential Indicated SCAN CRITERIA MET
[2024-05-09 08:03] LABS: ALB/GLOB Ratio 0.9 RATIO (0.9-2.4); AST(SGOT) 33 U/L (15-37); Alanine Aminotransfer ALT/SGPT 26 U/L (16-61); Albumin, Serum 3.4 g/dL (3.2-5.0); Alkaline Phosphatase 67 U/L (45-117); Anion Gap 7 (5-15); BUN 23 mg/dL (7-18); BUN/Creat Ratio 21.9 RATIO (10-20); Calcium,Total 9.1 mg/dL (8.5-10.1); Chloride 102 mmol/L (98-107); Creatinine, Serum 1.05 mg/dL (0.70-1.30); EST Glomerular Filtration Rate 72 mL/min (>60); Est Glom Filt Rate - Afr Amer 87 mL/min (>60); Estimated Creatinine Clearance 82.43 ml/min; Globulin 3.7 g/dL (2.2-4.2); Glucose 134 mg/dL (74-106); Potassium 4.2 mmol/L (3.5-5.1); Protein, Total 7.1 g/dL (6.4-8.2); Sodium Level 135 mmol/L (136-145)
[2024-05-09] MEDS: Insulin Lispro 100 UNIT/ML INSULN.PEN 26 UNIT SC ×3 (08:32→17:00)
[2024-05-09] MEDS: metFORMIN (XR) 500 MG Tablet 1000 MG PO ×2 (08:37→17:07)
[2024-05-09] MEDS: Spironolactone 25 MG Tablet PO (08:37)
[2024-05-09] MEDS: Carvedilol 25 MG Tablet PO (08:37)
[2024-05-09] MEDS: Docusate Sodium 100 MG Capsule 200 MG PO (08:38)
[2024-05-09] MEDS: dilTIAZem CD 120 MG Capsule PO (08:38)
[2024-05-09] MEDS: Losartan Potassium 100 MG Tablet PO (08:38)
[2024-05-09] MEDS: Colestipol 1 GM TABLET PO (08:38)
[2024-05-09] MEDS: Flecainide 150 MG Tablet PO (08:40)
[2024-05-09] MEDS: Famotidine 20 MG Tablet PO (08:40)
[2024-05-09] MEDS: Tolterodine Tartrate 2 MG CAP.SA PO (08:40)
[2024-05-09] MEDS: hydroCHLOROthiazide 12.5mg 12.5 MG PO (08:40)
[2024-05-09] MEDS: Finasteride 5 MG Tablet PO (08:40)
[2024-05-09 09:00] VITALS: BP 132/62; PULSE 72; RESP 20; TEMP 36.8; O2SAT 98
--- NOTE | 2024-05-09 10:27 | CASEMGMT ---
Met with patient to complete ADLER form. ADLER form explained to patient who voiced understanding and signed form. Original form placed in pt?s chart and copy provided to patient. Julia Gonzalez, Discharge Planning Asst
[2024-05-09 11:03] LABS: Bedside Glucose 129 mg/dL (74-106)
[2024-05-09] MEDS: Insulin Lispro 100 UNIT/ML INSULN.PEN SC (11:55)
[2024-05-09 11:57] LABS: Bedside Glucose 291 mg/dL (74-106)
[2024-05-09 12:11] LABS: Pathologist Review Reviewed
--- NOTE | 2024-05-09 12:56 | NURSING ---
This RN spoke with Daughter that is in the room at this time regarding visiting hours. Daughter was confused as she was told different times. Visiting Hours policy printed and given to daughter and she is aware. Dr. Daley called to check on pt. Order from Dr. Daley to stop CBI at this time and depending how he does will send him home with askew. Daughter and pt updated but daughter stated, i'd rather him not go home with that. This RN listened to daughter but then education given and also reminded daughter that pt is A&OX3 and can make desciions.
[2024-05-09 17:17] VITALS: BP 109/83; PULSE 82; RESP 20; TEMP 37; O2SAT 97
--- NOTE | 2024-05-09 17:18 | PCM.DC ---
Discharge Instructions Diet Discharge Diet: No restrictions Activity Discharge Activity: Return to Normal Activity and May Not Drive (while taking narcotic pain medications.) Dressing / Incision Call your doctor if you observe: Fever of 101 or Higher Catheter: Perez to large bag Drain: [place] Follow Up Care Please Follow Up With: Tom Daley MD When: Call [phone] for an appointment Test Results: Test results from this visit will be discussed in further detail at your follow-up appointment, if applicable. Discharge Plan Admission Admit Date/Time: 05/08/24 07:32 Attending Provider: Tom Daley Primary Care Provider: Jeff Subramanian Consulting Providers: Mariza Stevenson Instructions Patient Instructions: ED Perez Catheter, Care, ED Hematuria Discharge Orders/Prescriptions Prescriptions: No Action Eliquis 5 mg tablet 5 mg PO BID Qty: 180 3RF aspirin 81 mg tablet,delayed release (DR/EC) 81 mg PO DAILY Qty: 90 3RF carvedilol 25 mg tablet 25 mg PO BID Qty: 180 3RF losartan-hydrochlorothiazide 100-12.5 mg tablet 1 tab PO DAILY metformin 500 mg tablet extended release 24 hr 1,000 mg PO BID spironolactone 25 mg tablet 25 mg PO DAILY Qty: 30 2RF albuterol sulfate 90 mcg/actuation HFA aerosol inhaler 1 inh INHALATION Q6H PRN (Reason: SOB) Qty: 8.5 6RF flecainide 150 mg tablet 150 mg PO Q12H turmeric root extract 500 mg capsule 1,000 mg PO DAILY simvastatin 40 MG tablet 40 mg PO QHS insulin lispro [Humalog KwikPen Insulin] 100 unit/mL insulin pen 26 unit SUBCUT TID colestipol 1 gram tablet 1 g PO DAILY famotidine 20 mg tablet 20 mg PO BID Patient Comments: take 1 tablet by mouth twice a day insulin glargine [Basaglar KwikPen U-100 Insulin] 100 unit/mL (3 mL) insulin pen 90 unit subcut QHS NUVOFLEX 1 cap PO DAILY oxybutynin chloride 10 mg tablet extended release 24hr 10 mg PO DAILY diltiazem HCl 120 mg capsule,extended release 24hr 120 mg PO DAILY Qty: 90 3RF finasteride 5 mg tablet 5 mg PO DAILY Referrals / Follow Up: Tom Daley MD [Med Staff - Active Staff] - 3-5 Days Jeff Subramanian MD [Primary Care Provider] -
[2024-05-09 17:25] LABS: Bedside Glucose 125 mg/dL (74-106)
--- NOTE | 2024-05-09 17:48 | CASEMGMT ---
RN SHAYNE note: Discharge order is in. Pt to discharge home w/ F/C and to f/u with Dr Daley next week. NILDA BELLA to room. Introduced self and role. Loan Ortiz, @ bedside. She is aware nursing to educate on F/C care prior to discharge. She states plan is for pt to discharge home to her home for a few weeks so she can assist pt. She has 4 steps to get into her home and states she will be able to assist him in. Pt is indep @ baseline, uses a WW PRN. Pt currently ambulating in room from BR w/[employer], using no WW or DME. Gait steady. Pt not homebound & does not qualify for [facility]. Loan Ortiz, is aware and voices understanding. She feels comfortable being educated on F/C care. Cj DOYLEN RN CM
== END 2024-05-09 18:51 | disposition home or self-care (01) ==
LOC: ED 07:36 → MS3 08:23
PROVIDERS: Family Medicine; Admitting Provider Urology; Emergency Provider Emergency Medicine; PCP Family Medicine; Visit Provider Urology
DX: N99.820 Postprocedural hemorrhage of a genitourinary system organ or structure following a genitourinary system procedure (principal); C67.9 Malignant neoplasm of bladder, unspecified; I48.91 Unspecified atrial fibrillation; E66.01 Morbid (severe) obesity due to excess calories; Z68.41 Body mass index [BMI] 40.0-44.9, adult; E11.9 Type 2 diabetes mellitus without complications; Z79.4 Long term (current) use of insulin; R31.0 Gross hematuria; I25.10 Atherosclerotic heart disease of native coronary artery without angina pectoris; Z87.891 Personal history of nicotine dependence; E78.00 Pure hypercholesterolemia, unspecified; I10 Essential (primary) hypertension; E78.5 Hyperlipidemia, unspecified; K21.9 Gastro-esophageal reflux disease without esophagitis; Z79.899 Other long term (current) drug therapy; Z79.01 Long term (current) use of anticoagulants; Z79.82 Long term (current) use of aspirin
CPT/HCPCS: 36415; 51702; 80048; 80053; 81001; 82962; 83735; 84484; 85025; 93005; 94668; 96361; 96365; 96366; 96375; 99221; 99284; J7120; A4216; G0378

== ENCOUNTER 2024-05-31 09:12 | Emergency (ER) | payer MEDICARE, SELFPAY ==
[2024-05-31 09:14] VITALS: BP 111/45; PULSE 73; RESP 18; TEMP 36.1; O2SAT 94
[2024-05-31 09:15] VITALS: BMI 39.3
--- NOTE | 2024-05-31 10:14 | EKG12_ITS ---
Test Reason : GENERAL Blood Pressure : / mmHG Vent. Rate : 071 BPM Atrial Rate : 071 BPM P-R Int : 246 ms QRS Dur : 160 ms QT Int : 438 ms P-R-T Axes : 100 -78 018 degrees QTc Int : 475 ms Sinus rhythm with 1st degree A-V block Right bundle branch block Left anterior fascicular block Bifascicular block Abnormal ECG Confirmed by Gabriel Lin ([id number]), editor dictionary CARLOTA SUTTON ([id number]) on 06/02/2024 10:06:32 AM Referred By: Confirmed By:Gabriel Lin
--- NOTE | 2024-05-31 10:16 | EDS_ITS ---
HPI History of Present Illness Chief Complaint: Weakness Informant: patient and family Narrative Narrative: 79-year-old male presenting with generalized weakness for the past 4 hours since he got up this morning. When he tried to stand up he was lightheaded, he did not have a syncopal episode. States he had some diarrhea this morning no blood or melena. Some nausea but no vomiting. No abdominal pain. No other symptoms other than just feeling generally weak and having trouble standing. Was okay but he went to bed last night. 3-4 weeks ago he had bladder tumor resection that went well and has been urinating normally. Daughter states he is on a medication to dehydrates him so he is usually dehydrated when they check. Patient states he has been drinking fluids recently. [facility] Medical History Dyspnea Diabetes Sleep apnea Atrial fibrillation Cancer Walker as ambulation aid Arthritis Bladder disease Prostate disease Complete edentulism, class III Gastric reflux CPAP (continuous positive airway pressure) dependence History of pain when walking History of edema History of echocardiogram History of stress test Cardiology follow-up encounter Blindness Bladder cancer Restrictive airway disease Morbid obesity Pneumonia due to COVID-19 virus Left lower lobe pneumonia Acute respiratory failure with hypoxia Wears hearing aid Wears glasses Insulin dependent diabetes mellitus Psoriasis High cholesterol Restless legs Back pain Injury of back Dietary restriction Former smoker Shortness of breath on exertion Hypertension Right bundle branch 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 Nonobstructive atherosclerosis of coronary artery Obesity BPH (benign prostatic hyperplasia) Hyperlipidemia Essential (primary) hypertension Atrial fibrillation with RVR (02/05/21) Home Medications ?Medication ?Instructions ?Recorded ?Last Taken ?Type simvastatin 40 mg tablet 40 mg PO QHS cholesterol 04/21/15 Unknown History apixaban 5 mg tablet (Eliquis) 5 mg PO BID #180 tabs 02/22/21 05/03/24 Rx aspirin 81 mg tablet,delayed 81 mg PO DAILY #90 tabs 02/22/21 04/30/24 Rx release carvedilol 25 mg tablet 25 mg PO BID #180 tabs 02/22/21 05/07/24 09:30 Rx losartan 100 1 tab PO DAILY 06/23/21 Unknown History mg-hydrochlorothiazide 12.5 mg tablet diltiazem HCl 120 mg 120 mg PO DAILY #90 caps 07/18/21 05/07/24 09:30 Rx capsule,extended release 24 hr insulin lispro 100 unit/mL 26 unit subcut TID diabetes 10/24/21 Unknown History subcutaneous pen (Humalog KwikPen (U-100) Insulin) metformin 500 mg tablet,extended 1,000 mg PO BID 10/24/21 Unknown History release 24 hr albuterol sulfate 90 mcg/actuation 1 inh inhalation Q6H PRN SOB #8.5 11/30/21 Unknown Rx aerosol inhaler grams colestipol 1 gram tablet 1 g PO DAILY 01/30/22 Unknown History spironolactone 25 mg tablet 25 mg PO DAILY #30 tabs 01/30/22 Unknown Rx finasteride 5 mg tablet 5 mg PO DAILY 10/27/22 Unknown History NUVOFLEX 1 cap PO DAILY 09/22/23 Unknown History famotidine 20 mg tablet 20 mg PO BID 09/22/23 05/07/24 09:30 History insulin glargine 100 unit/mL (3 90 unit subcut QHS 09/22/23 Unknown History mL) subcutaneous pen (Basaglar KwikPen U-100 Insulin) flecainide 150 mg tablet 150 mg PO Q12H 10/24/23 05/07/24 09:30 History turmeric root extract 500 mg 1,000 mg PO DAILY 10/24/23 Unknown History capsule oxybutynin chloride 10 mg 10 mg PO DAILY 05/05/24 Unknown History tablet,extended release 24 hr cephalexin 500 mg capsule 500 mg PO Q6 #28 CAPSULES 05/31/24 Unknown Rx Allergy/AdvReac Type Severity Reaction Status Date / Time amoxicillin Allergy Rash Verified 05/08/24 04:03 Family History Sister Colon cancer Brother Diabetes Mother Diabetes Heart disease Cancer Father Heart disease Cancer Diabetes Surgical History Hx of right cataract extraction Hx of colonoscopy Hx of transurethral resection of prostate H/O wrist surgery History of left heart catheterization (02/07/21) Hx of umbilical hernia repair Hx of cholecystectomy Status post surgical manipulation of ankle joint H/O hemorrhoidectomy Social History household members: spouse Smoking Status: Former smoker how long ago did patient quit smokin years ago alcohol intake: never substance use type: does not use caffeine: Yes Type: coffee Number of servings: 1 ROS ROS ED Constitutional Constitutional ED: Reports weakness; Denies chills or fever(s) Eyes Eyes: Denies change in vision or diplopia ENT ENT ED: Denies rhinorrhea or sore throat Cardiovascular Cardiovascular: Reports orthostatic symptoms; Denies chest pain, palpitations or syncope Respiratory/Chest Respiratory/Chest: Denies cough or dyspnea Gastrointestinal Gastrointestinal: Reports diarrhea and nausea; Denies abdominal pain or vomiting Genitourinary Genitourinary ED: Denies dysuria or hematuria Musculoskeletal Musculoskeletal: Denies back pain or neck pain Integumentary Denies abscess or rash Neurologic Neurologic: Denies headache(s), paresthesias or weakness Psychiatric Psychiatric: Denies anxiety or suicidal thoughts EXAM Physical Exam Const Vital Signs: 05/31/24 09:14 05/31/24 11:13 Temperature 96.9 F L Temperature Source Temporal Pulse Rate 73 68 Respiratory Rate 18 19 H Blood Pressure 111/45 L 158/81 H Blood Pressure Mean 67 106 Pulse Ox 94 98 Oxygen Delivery Method Room Air Room Air Positive well nourished, well developed and obese General Appearance ED: well developed and NAD Nutritional Appearance: obese HEENT Reports moist mucous membranes normocephalic and atraumatic Eyes PERRL and EOMs intact bilaterally Neck full ROM and supple Resp normal respiratory effort and clear to auscultation bilaterally Cardio regular rate and regular rhythm Cardio Narrative: Faint heart sounds GI non-tender and non-distended Auscultation: normoactive bowel sounds Palpation: soft Back/Spine no CVA tenderness General Back: other FROM Extremity normal to inspection General Extremety ED: Negative for edema, pulses abnormal or tenderness General Extremity: Negative for edema or pulses abnormal Neuro oriented x3, CN's II-XII intact bilaterally and no sensory deficits noted Sensorium / Orientation: awake and alert Motor Exam: strength 5/5 throughout Psych mental status grossly normal Skin no rashes or lesions noted and no wounds MDM MDM MDM Narrative Medical decision making narrative: Reviewed some history, he is on apixaban for a history of paroxysmal atrial fibrillation, and the only diuretic it appears he is on a spironolactone. We did run labs, his some mild renal insufficiency but no more dry than he usually is. A mild leukocytosis, COVID/influenza/RSV is negative, 1 view chest x-ray my interpretation negative for pneumonia, but his urinalysis shows multiple indicators for infection including pyuria and bacteriuria. He is having no acute urinary symptoms. He recently had a bladder procedure 3 weeks ago which is not likely to be immediately responsible for this if this is causing his weakness, but I feel it is best to treat this infection. I am sending for culture given a dose of IV Rocephin, and after some IV fluids we got him up out of bed and he is able to stand and walk, I offered admission he declines and prefers to go home. Placed him on cephalexin due to medication interactions with Cipro and sulfa medications, we will follow-up with Dr. Daley per daughter request for this. Lab Data Attestation: I reviewed the patient's lab results. Labs: Laboratory Results - last 24 hr 05/31/24 05/31/24 10:30 11:22 WBC 11.7 H RBC 4.73 Hgb 12.8 L Hct 40.0 MCV 84.6 MCH 27.1 MCHC 32.0 RDW Std Deviation 40.3 RDW Coeff of Lucia 13.1 Plt Count 301 MPV 10.5 Immature Gran % (Auto) 0.300 Neut % (Auto) 71.4 H Lymph % (Auto) 14.1 L Bowman % (Auto) 10.3 H Eos % (Auto) 3.5 Baso % (Auto) 0.4 Absolute Neuts (auto) 8.4 H Absolute Lymphs (auto) 1.65 Nucleated RBC % 0 Sodium 131 L Potassium 4.3 Chloride 97 L Carbon Dioxide 25.0 Anion Gap 9 BUN 24 H Creatinine 1.33 H Estim Creat Clear Calc 63.90 Est GFR (MDRD) Af Amer 67 Est GFR (MDRD) Non-Af 55 L BUN/Creatinine Ratio 18.0 Glucose 201 H Calcium 9.9 Total Bilirubin 0.30 AST 15 ALT 23 Alkaline Phosphatase 92 Troponin I High Sens 7 Total Protein 7.5 Albumin 3.3 Globulin 4.2 Albumin/Globulin Ratio 0.8 L Urine Color Yellow Urine Clarity Sl. Cloudy Urine pH 6.0 Ur Specific [place] 1.015 Urine Protein 30 H Urine Glucose (UA) Normal Urine Ketones Negative Urine Occult Blood 250 H Urine Nitrite Negative Urine Bilirubin Negative Urine Urobilinogen Normal Ur Leukocyte Esterase 500 H Urine RBC 5-10 SEEN Urine WBC 50-100 SEEN Ur Squamous Epith Cells 0 SEEN Urine Bacteria 1+ Urine Mucus 0 SEEN Radiography Diagnostic Testing: Clinical Impression(s) from Imaging Studies Chest X-Ray 05/31/24 10:40 IMPRESSION: Stable, nonacute portable x-ray examination of the chest. Electronically Signed: Lázaro Koehler MD ([place]) at 11:00 EDT Reading Location ID and State: [facility] / [place] , Service support , Rhythm Strip Rhythm Strip: Sinus Rhythm Rate: 70 Ectopy: None EKG Initial EKG: Attestation: I personally reviewed and interpreted this EKG as follows: Interpretation: Sinus Rhythm, No Acute Injury Pattern, RBBB and AV Block (1st deg) Prior EKG tracings: available for review Prior: Unchanged Discharge Plan Triage Chief Complaint: Weakness ED Provider: [place] Dx/Rx/DC Orders Clinical Impression: Acute UTI, Generalized weakness, Acute diarrhea Instructions: ED Bladder Infection, Male (Adult) Prescriptions: New cephalexin 500 mg capsule 500 mg PO Q6 Qty: 28 0RF No Action Eliquis 5 mg tablet 5 mg PO BID Qty: 180 3RF aspirin 81 mg tablet,delayed release (DR/EC) 81 mg PO DAILY Qty: 90 3RF carvedilol 25 mg tablet 25 mg PO BID Qty: 180 3RF losartan-hydrochlorothiazide 100-12.5 mg tablet 1 tab PO DAILY metformin 500 mg tablet extended release 24 hr 1,000 mg PO BID spironolactone 25 mg tablet 25 mg PO DAILY Qty: 30 2RF albuterol sulfate 90 mcg/actuation HFA aerosol inhaler 1 inh INHALATION Q6H PRN (Reason: SOB) Qty: 8.5 6RF flecainide 150 mg tablet 150 mg PO Q12H turmeric root extract 500 mg capsule 1,000 mg PO DAILY simvastatin 40 MG tablet 40 mg PO QHS insulin lispro [Humalog KwikPen Insulin] 100 unit/mL insulin pen 26 unit SUBCUT TID colestipol 1 gram tablet 1 g PO DAILY famotidine 20 mg tablet 20 mg PO BID Patient Comments: take 1 tablet by mouth twice a day insulin glargine [Basaglar KwikPen U-100 Insulin] 100 unit/mL (3 mL) insulin pen 90 unit subcut QHS NUVOFLEX 1 cap PO DAILY oxybutynin chloride 10 mg tablet extended release 24hr 10 mg PO DAILY diltiazem HCl 120 mg capsule,extended release 24hr 120 mg PO DAILY Qty: 90 3RF finasteride 5 mg tablet 5 mg PO DAILY Primary Care Provider: Jeff Subramanian Referrals: Jeff Subramanian MD [Primary Care Provider] - 3-5 Days (or Dr. Daley) Print Language: Tamazight Disposition Disposition: Home, Self Care
[2024-05-31] MEDS: 0.9% Normal Saline (500mL Bag) 500 ML 1000 ML IV (10:33)
[2024-05-31] MEDS: Ondansetron 4 MG/2 ML Vial IV (10:33)
--- NOTE | 2024-05-31 10:40 | RAD_ITS ---
STUDY: X-RAY CHEST REASON FOR EXAM: Male, 79 years old. weakness TECHNIQUE: Single AP portable view of the chest. COMPARISON: 09/22/2023. FINDINGS: EKG leads project over the chest. The lungs are clear and expanded. There is no demonstrated pleural abnormality. There is mild cardiac enlargement. Normal mediastinum and shashi. Normal visualized pulmonary arteries. Normal visualized aortic arch and descending thoracic aorta. Normal visualized thoracic spine. Normal visualized ribs, clavicles, and shoulders. There is no demonstrated abnormality of the visualized soft tissue structures of the upper abdomen. RAD/Chest 1 View (Portable) IMPRESSION: Stable, nonacute portable x-ray examination of the chest. Electronically Signed: Lázaro Koehler MD ([place]) at 11:00 EDT ,
[2024-05-31 10:41] LABS: Absolute Lymphocyte Count 1.65 X10^3/uL (0.83-4.51); Absolute Neutrophil Count 8.4 X10^3/uL (2.0-7.7); Basophil# 0.05 X10^3/uL; Basophil% 0.4 % (0-1); Eosinophil# 0.41 X10^3/uL; Eosinophils% 3.5 % (0-5); Hemoglobin 12.8 g/dL (13.0-16.5); Lymphocyte # 1.65 X10^3/ul (0.83-4.51); Lymphocyte % 14.1 % (19-41); Mean Corpuscular Hgb 27.1 pg (27.0-32.0); Mean Corpuscular Volume 84.6 fL (80-94); Mean Platelet Vol. 10.5 fl (6.2-12.0); Monocyte% 10.3 % (0-10); NRBC Flagged by Analyzer 0 % (0-5); Neutrophil # 8.35 X10^3/uL (2.7-7.7); Neutrophil % 71.4 % (47-70); Platelet Count 301 K/mm3 (150-450); RBC Distribution Width CV 13.1 % (11.6-14.6); RBC Distribution Width SD 40.3 fl (35.1-43.9); Red Blood Count 4.73 M/mm3 (4.6-6.2); White Blood Count 11.7 K/mm3 (4.4-11.0)
[2024-05-31 10:59] LABS: ALB/GLOB Ratio 0.8 RATIO (0.9-2.4); AST(SGOT) 15 U/L (15-37); Alanine Aminotransfer ALT/SGPT 23 U/L (16-61); Albumin, Serum 3.3 g/dL (3.2-5.0); Alkaline Phosphatase 92 U/L (45-117); Anion Gap 9 (5-15); BUN 24 mg/dL (7-18); Calcium,Total 9.9 mg/dL (8.5-10.1); Chloride 97 mmol/L (98-107); Creatinine, Serum 1.33 mg/dL (0.70-1.30); EST Glomerular Filtration Rate 55 mL/min (>60); Est Glom Filt Rate - Afr Amer 67 mL/min (>60); Globulin 4.2 g/dL (2.2-4.2); Glucose 201 mg/dL (74-106); Potassium 4.3 mmol/L (3.5-5.1); Protein, Total 7.5 g/dL (6.4-8.2); Sodium Level 131 mmol/L (136-145); Troponin-I HS 7 pg/mL (3.0-78.0)
[2024-05-31 11:13] VITALS: BP 158/81; PULSE 68; RESP 19; O2SAT 98
[2024-05-31 11:30] LABS: Mucous, Urine 0 SEEN /hpf (<or=2+); Squamous Epithelial Cells - UA 0 SEEN /hpf (0-5)
[2024-05-31 11:33] LABS: Color, Urine Yellow (Yellow); Glucose, Dipstick Normal (Normal); Ketone-Dipstick Negative (Negative); Leukocyte Esterase-Dipstick 500 /ul (Negative); Nitrite-Dipstick Negative (Negative); Occult Blood-Urine 250 /ul (Negative); Protein-Dipstick 30 mg/dl (Negative); Specific Gravity, Urine 1.015 (1.002-1.030); Urine Bilirubin Dipstick Negative (Negative); Urine Clarity Sl. Cloudy (Clear); Urine Urobilinogen Normal (Normal)
[2024-05-31 11:49] LABS: Bacteria 1+ /hpf (None Seen); Red Blood Cells-Urine 5-10 SEEN /hpf (0-5); White Blood Cells 50-100 SEEN /hpf (0-5)
[2024-05-31] MEDS: Ceftriaxone 1 GM/50 ML BAG IV (12:14)
[2024-05-31 13:00] VITALS: BP 126/69; PULSE 88
[2024-05-31 13:16] VITALS: BP 137/85; PULSE 79; RESP 16; TEMP 36.7; O2SAT 100
== END 2024-05-31 13:16 | disposition home or self-care (01) ==
PROVIDERS: Emergency Provider Emergency Medicine; PCP Family Medicine; Visit Provider Emergency Medicine
DX: R53.1 Weakness (principal); I48.0 Paroxysmal atrial fibrillation; Z79.4 Long term (current) use of insulin; E11.9 Type 2 diabetes mellitus without complications; N39.0 Urinary tract infection, site not specified; E78.00 Pure hypercholesterolemia, unspecified; R19.7 Diarrhea, unspecified; I25.10 Atherosclerotic heart disease of native coronary artery without angina pectoris; Z87.891 Personal history of nicotine dependence; I10 Essential (primary) hypertension; Z85.51 Personal history of malignant neoplasm of bladder; Z79.899 Other long term (current) drug therapy; Z79.01 Long term (current) use of anticoagulants; Z79.82 Long term (current) use of aspirin; Z79.84 Long term (current) use of oral hypoglycemic drugs; N40.0 Benign prostatic hyperplasia without lower urinary tract symptoms; Z98.41 Cataract extraction status, right eye; Z90.49 Acquired absence of other specified parts of digestive tract
CPT/HCPCS: 71045; 80053; 81001; 84484; 85025; 87086; 87631; 93005; 96365; 96375; 99283; J7050; A4216; J2405

== ENCOUNTER 2024-06-08 05:09 | Emergency (ER) | payer MEDICARE, SELFPAY ==
[2024-06-08 05:09] VITALS: BP 121/70; PULSE 70; RESP 20; TEMP 36.6; O2SAT 97; BMI 39.5
--- NOTE | 2024-06-08 05:34 | EKG12_ITS ---
Test Reason : CP Blood Pressure : / mmHG Vent. Rate : 069 BPM Atrial Rate : 069 BPM P-R Int : 280 ms QRS Dur : 174 ms QT Int : 440 ms P-R-T Axes : 002 -73 016 degrees QTc Int : 471 ms Sinus rhythm with 1st degree A-V block Right bundle branch block Left anterior fascicular block Bifascicular block Abnormal ECG Confirmed by Gabriel Lin ([id number]), script editor CARLOTA SUTTON ([id number]) on 06/10/2024 10:07:16 AM Referred By: BETSY Confirmed By:Gabriel Lin
--- NOTE | 2024-06-08 05:34 | RAD_ITS ---
INDICATION: chest pain EXAMINATION/TECHNIQUE: X-RAY - XR Chest 1 View COMPARISON: None. FINDINGS: LINES/DEVICES: None. LUNGS: No consolidation, edema or effusion. No pneumothorax. MEDIASTINUM AND CARDIOVASCULAR STRUCTURES: Mild cardiomegaly. BONES AND SOFT TISSUES: Unremarkable. RAD/Chest 1 View (Portable) IMPRESSION: Mild cardiomegaly without florid edema. No radiographic evidence of acute cardiopulmonary disease. Electronically Signed: Justin Cheney MD at 6:18 EDT ,
--- NOTE | 2024-06-08 05:35 | EDS_ITS ---
HPI History of Present Illness Chief Complaint: Chest Pain Informant: patient Onset/Context/Timing Onset: Hours (1.5) Activity at onset: - (after getting up to use toilet and sitting in chair) Timing: Continuous Quality: Positive for Pressure Location: Left Chest Current Severity: Gone Maximum Severity: Moderate Worsened By: Nothing Relieved By: Nothing Associated Symptoms: Positive for - (just didn't feel well); Negative for Nausea, Vomiting, Diaphoresis, Dyspnea or Palpitations Narrative Narrative: 79-year-old male presenting 1.5 hours after having discomfort in his chest that started after sitting in a chair after he got up to use the toilet in the middle of the night around 0330. Daughter presents most of the history saying that after he complained of that, he said he did not feel well, and he did not feel well and his head possibly suggesting he was lightheaded but he is not using those words or confirming that. He then described it moving down toward his left upper quadrant/abdomen, the patient states all of his symptoms are gone now. He did not feel near syncopal or syncopal. He denies any other associated symptoms. He was seen here recently for urinary infection and states that is doing better. Daughter concerned about a blood clot in his heart; states he recently had bleeding after bladder surgery and has had to hold his Eliquis lately. [facility] Medical History Dyspnea Diabetes Sleep apnea Atrial fibrillation Cancer Walker as ambulation aid Arthritis Bladder disease Prostate disease Complete edentulism, class III Gastric reflux CPAP (continuous positive airway pressure) dependence History of pain when walking History of edema History of echocardiogram History of stress test Cardiology follow-up encounter Blindness Bladder cancer Restrictive airway disease Morbid obesity Pneumonia due to COVID-19 virus Left lower lobe pneumonia Acute respiratory failure with hypoxia Wears hearing aid Wears glasses Insulin dependent diabetes mellitus Psoriasis High cholesterol Restless legs Back pain Injury of back Dietary restriction Former smoker Shortness of breath on exertion Hypertension Right bundle branch 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 Nonobstructive atherosclerosis of coronary artery Obesity BPH (benign prostatic hyperplasia) Hyperlipidemia Essential (primary) hypertension Atrial fibrillation with RVR (02/05/21) Home Medications ?Medication ?Instructions ?Recorded ?Last Taken ?Type simvastatin 40 mg tablet 40 mg PO QHS cholesterol 04/21/15 Unknown History apixaban 5 mg tablet (Eliquis) 5 mg PO BID #180 tabs 02/22/21 05/03/24 Rx aspirin 81 mg tablet,delayed 81 mg PO DAILY #90 tabs 02/22/21 04/30/24 Rx release carvedilol 25 mg tablet 25 mg PO BID #180 tabs 02/22/21 05/07/24 09:30 Rx losartan 100 1 tab PO DAILY 06/23/21 Unknown History mg-hydrochlorothiazide 12.5 mg tablet insulin lispro 100 unit/mL 26 unit subcut TID diabetes 10/24/21 Unknown History subcutaneous pen (Humalog KwikPen (U-100) Insulin) metformin 500 mg tablet,extended 1,000 mg PO BID 10/24/21 Unknown History release 24 hr albuterol sulfate 90 mcg/actuation 1 inh inhalation Q6H PRN SOB #8.5 11/30/21 Unknown Rx aerosol inhaler grams colestipol 1 gram tablet 1 g PO DAILY 01/30/22 Unknown History spironolactone 25 mg tablet 25 mg PO DAILY #30 tabs 01/30/22 Unknown Rx finasteride 5 mg tablet 5 mg PO DAILY 10/27/22 Unknown History NUVOFLEX 1 cap PO DAILY 09/22/23 Unknown History famotidine 20 mg tablet 20 mg PO BID 09/22/23 05/07/24 09:30 History insulin glargine 100 unit/mL (3 90 unit subcut QHS 09/22/23 Unknown History mL) subcutaneous pen (Basaglar KwikPen U-100 Insulin) flecainide 150 mg tablet 150 mg PO Q12H 10/24/23 05/07/24 09:30 History turmeric root extract 500 mg 1,000 mg PO DAILY 10/24/23 Unknown History capsule oxybutynin chloride 10 mg 15 mg PO DAILY 05/05/24 Unknown History tablet,extended release 24 hr cephalexin 500 mg capsule 500 mg PO Q6 06/08/24 Unknown History diltiazem HCl 120 mg 120 mg PO DAILY 06/08/24 Unknown History capsule,extended release 24 hr (Cartia XT) Allergy/AdvReac Type Severity Reaction Status Date / Time amoxicillin Allergy Rash Verified 06/08/24 05:09 Family History Sister Colon cancer Brother Diabetes Mother Diabetes Heart disease Cancer Father Heart disease Cancer Diabetes Surgical History Hx of right cataract extraction Hx of colonoscopy Hx of transurethral resection of prostate H/O wrist surgery History of left heart catheterization (02/07/21) Hx of umbilical hernia repair Hx of cholecystectomy Status post surgical manipulation of ankle joint H/O hemorrhoidectomy Social History household members: spouse Smoking Status: Former smoker how long ago did patient quit smokin years ago alcohol intake: never substance use type: does not use caffeine: Yes Type: coffee Number of servings: 1 ROS ROS ED Constitutional Constitutional ED: Denies chills or fever(s) Eyes Eyes: Denies change in vision or diplopia ENT ENT ED: Denies rhinorrhea or sore throat Cardiovascular Cardiovascular: Reports as per HPI and chest pain; Denies palpitations Respiratory/Chest Respiratory/Chest: Denies cough or dyspnea Gastrointestinal Gastrointestinal: Denies abdominal pain, diarrhea, nausea or vomiting Genitourinary Genitourinary ED: Denies dysuria or hematuria Musculoskeletal Musculoskeletal: Denies back pain or neck pain Integumentary Denies abscess or rash Neurologic Neurologic: Denies headache(s), paresthesias or weakness Psychiatric Psychiatric: Denies suicidal thoughts EXAM Physical Exam Const Vital Signs: 06/08/24 05:09 06/08/24 05:39 Temperature 97.9 F Temperature Source Oral Pulse Rate 70 Respiratory Rate 20 H Blood Pressure 121/70 H Blood Pressure Mean 87 Pulse Ox 97 Oxygen Delivery Method Room Air Positive well nourished and well developed Constitutional Narrative: well-appearing General Appearance ED: well developed and NAD HEENT Reports moist mucous membranes normocephalic and atraumatic Eyes PERRL and EOMs intact bilaterally Neck full ROM and supple Resp normal respiratory effort and clear to auscultation bilaterally Cardio regular rate and regular rhythm Peripheral Pulses: pulses 2+ throughout and radial pulses present GI non-tender and non-distended Auscultation: normoactive bowel sounds Palpation: soft Back/Spine no CVA tenderness General Back: other FROM Extremity normal to inspection General Extremety ED: Negative for edema, pulses abnormal or tenderness General Extremity: Negative for edema or pulses abnormal Neuro oriented x3, CN's II-XII intact bilaterally and no sensory deficits noted Sensorium / Orientation: awake and alert Motor Exam: strength 5/5 throughout Skin no rashes or lesions noted and no wounds Heart Score History: Moderately Suspicious ECG: Normal (same as prior 1 wk ago) Age: >/= 65 years Risk Factors: >/= 3 Risk Factors or History of CAD Troponin: </= Normal Limit Score: 5 MDM MDM MDM Narrative Medical decision making narrative: At this time patient is asymptomatic in a sinus rhythm with normal vital signs blood pressure 121/70, and he is asymptomatic. Differential includes an episode of A-fib, he has a history of paroxysmal A-fib; reflux; unstable angina thought to be less likely given the appearance of his EKG and the symptoms are fairly atypical; PE thought not to be the case since he is not tachycardic and his symptoms were very short-lived and transient, gone; not likely to be pericarditis or pleurisy since his symptoms are resolved. 1 view chest x-ray my interpretation shows a chronic changes, no change compared with his prior, no acute process including pneumonia or pneumothorax or widened mediastinum. Labs noted, initial troponin negative. Patient still asymptomatic with stable vital signs. Plan is to obtain a 2-hour repeat troponin, if negative, and patient develops no recurrent issues, I would support discharging home with close outpatient follow-up. This repeat level will be checked out to the morning physician at shift change. Lab Data Attestation: I reviewed the patient's lab results. Labs: Laboratory Results - last 24 hr 06/08/24 05:37 WBC 11.0 RBC 4.77 Hgb 13.0 Hct 40.6 MCV 85.1 MCH 27.3 MCHC 32.0 RDW Std Deviation 40.9 RDW Coeff of Lucia 13.2 Plt Count 323 MPV 10.8 Immature Gran % (Auto) 0.800 Neut % (Auto) 66.0 Lymph % (Auto) 15.9 L [place] % (Auto) 12.4 H Eos % (Auto) 4.5 Baso % (Auto) 0.4 Absolute Neuts (auto) 7.3 Absolute Lymphs (auto) 1.75 Nucleated RBC % 0 Sodium 134 L Potassium 4.2 Chloride 99 Carbon Dioxide 30.0 Anion Gap 5 BUN 27 H Creatinine 1.24 Estim Creat Clear Calc 68.78 Est GFR (MDRD) Af Amer 72 Est GFR (MDRD) Non-Af 60 BUN/Creatinine Ratio 21.8 H Glucose 128 H Calcium 9.6 Troponin I High Sens 6 Radiography Diagnostic Testing: Clinical Impression(s) from Imaging Studies Chest X-Ray 06/08/24 05:34 IMPRESSION: Mild cardiomegaly without florid edema. No radiographic evidence of acute cardiopulmonary disease. Electronically Signed: Justin Cheney MD at 6:18 EDT , Rhythm Strip Rhythm Strip: Sinus Rhythm Rate: 70 Ectopy: None EKG Initial EKG: Attestation: I personally reviewed and interpreted this EKG as follows: Interpretation: Sinus Rhythm, No Acute Injury Pattern, LBBB and LAFB Prior EKG tracings: available for review Prior: Unchanged Discharge Plan Triage Chief Complaint: Chest Pain ED Provider: [place] Dx/Rx/DC Orders Clinical Impression: Left-sided chest pain Instructions: ED Chest Pain, Uncertain Cause Prescriptions: No Action Eliquis 5 mg tablet 5 mg PO BID Qty: 180 3RF aspirin 81 mg tablet,delayed release (DR/EC) 81 mg PO DAILY Qty: 90 3RF carvedilol 25 mg tablet 25 mg PO BID Qty: 180 3RF losartan-hydrochlorothiazide 100-12.5 mg tablet 1 tab PO DAILY metformin 500 mg tablet extended release 24 hr 1,000 mg PO BID spironolactone 25 mg tablet 25 mg PO DAILY Qty: 30 2RF albuterol sulfate 90 mcg/actuation HFA aerosol inhaler 1 inh INHALATION Q6H PRN (Reason: SOB) Qty: 8.5 6RF flecainide 150 mg tablet 150 mg PO Q12H turmeric root extract 500 mg capsule 1,000 mg PO DAILY simvastatin 40 MG tablet 40 mg PO QHS insulin lispro [Humalog KwikPen Insulin] 100 unit/mL insulin pen 26 unit SUBCUT TID colestipol 1 gram tablet 1 g PO DAILY famotidine 20 mg tablet 20 mg PO BID Patient Comments: take 1 tablet by mouth twice a day insulin glargine [Basaglar KwikPen U-100 Insulin] 100 unit/mL (3 mL) insulin pen 90 unit subcut QHS NUVOFLEX 1 cap PO DAILY oxybutynin chloride 10 mg tablet extended release 24hr 15 mg PO DAILY diltiazem HCl [Cartia XT] 120 mg capsule,extended release 24hr 120 mg PO DAILY cephalexin 500 mg capsule 500 mg PO Q6 Rx Instructions: on more dose finasteride 5 mg tablet 5 mg PO DAILY Primary Care Provider: Jeff Subramanian Referrals: Jeff Subramanian MD [Primary Care Provider] - Print Language: Wolof
[2024-06-08] MEDS: Aspirin 81 MG TAB.CHEW 324 MG PO (05:42)
[2024-06-08 06:09] VITALS: BP 138/73; PULSE 68; RESP 18; O2SAT 95
[2024-06-08 06:11] LABS: Absolute Lymphocyte Count 1.75 X10^3/uL (0.83-4.51); Absolute Neutrophil Count 7.3 X10^3/uL (2.0-7.7); Basophil# 0.04 X10^3/uL; Basophil% 0.4 % (0-1); Eosinophil# 0.49 X10^3/uL; Eosinophils% 4.5 % (0-5); Hematocrit 40.6 % (40-54); Lymphocyte # 1.75 X10^3/ul (0.83-4.51); Lymphocyte % 15.9 % (19-41); Mean Corpuscular Hgb 27.3 pg (27.0-32.0); Mean Corpuscular Volume 85.1 fL (80-94); Mean Platelet Vol. 10.8 fl (6.2-12.0); Monocyte# 1.36 X10^3/uL; Monocyte% 12.4 % (0-10); NRBC Flagged by Analyzer 0 % (0-5); Neutrophil # 7.26 X10^3/uL (2.7-7.7); Platelet Count 323 K/mm3 (150-450); RBC Distribution Width CV 13.2 % (11.6-14.6); RBC Distribution Width SD 40.9 fl (35.1-43.9); Red Blood Count 4.77 M/mm3 (4.6-6.2)
[2024-06-08 06:26] LABS: Anion Gap 5 (5-15); BUN 27 mg/dL (7-18); BUN/Creat Ratio 21.8 RATIO (10-20); Calcium,Total 9.6 mg/dL (8.5-10.1); Chloride 99 mmol/L (98-107); Creatinine, Serum 1.24 mg/dL (0.70-1.30); EST Glomerular Filtration Rate 60 mL/min (>60); Est Glom Filt Rate - Afr Amer 72 mL/min (>60); Estimated Creatinine Clearance 68.78 ml/min; Glucose 128 mg/dL (74-106); Potassium 4.2 mmol/L (3.5-5.1); Sodium Level 134 mmol/L (136-145); Troponin-I HS (w/2H Reflex) 6 pg/mL (3.0-78.0)
[2024-06-08 07:00] VITALS: BP 139/74; PULSE 66; RESP 15; O2SAT 94
[2024-06-08 07:54] LABS: Reflex Troponin-HS? (from REC) Y
[2024-06-08 08:00] VITALS: BP 143/67; PULSE 67; RESP 14; O2SAT 96
[2024-06-08 08:32] LABS: Troponin-I HS 7 pg/mL (3.0-78.0)
[2024-06-08 09:12] VITALS: BP 128/68; PULSE 71; RESP 14; TEMP 36.1; O2SAT 97
== END 2024-06-08 09:13 | disposition home or self-care (01) ==
LOC: ED 06:00
PROVIDERS: Emergency Provider Emergency Medicine; PCP Family Medicine; Visit Provider Emergency Medicine
DX: R07.9 Chest pain, unspecified (principal); I48.0 Paroxysmal atrial fibrillation; E11.9 Type 2 diabetes mellitus without complications; Z79.4 Long term (current) use of insulin; Z87.891 Personal history of nicotine dependence; I10 Essential (primary) hypertension; I25.10 Atherosclerotic heart disease of native coronary artery without angina pectoris; E78.00 Pure hypercholesterolemia, unspecified; G47.30 Sleep apnea, unspecified; Z99.89 Dependence on other enabling machines and devices; Z79.899 Other long term (current) drug therapy; Z79.82 Long term (current) use of aspirin; Z79.84 Long term (current) use of oral hypoglycemic drugs; Z85.51 Personal history of malignant neoplasm of bladder; N40.0 Benign prostatic hyperplasia without lower urinary tract symptoms; Z98.41 Cataract extraction status, right eye; Z90.49 Acquired absence of other specified parts of digestive tract
CPT/HCPCS: 71045; 80048; 84484; 85025; 93005; 99283; A4216

== ENCOUNTER 2024-06-24 01:42 | Emergency (ER) | payer MEDICARE, SELFPAY ==
[2024-06-24 01:43] VITALS: BP 111/54; PULSE 63; RESP 16; TEMP 36.6; O2SAT 95; BMI 40.6
[2024-06-24 02:08] LABS: Bedside Glucose 84 mg/dL (74-106)
[2024-06-24 02:18] LABS: Absolute Lymphocyte Count 2.17 X10^3/uL (0.83-4.51); Absolute Neutrophil Count 6.9 X10^3/uL (2.0-7.7); Basophil# 0.07 X10^3/uL; Basophil% 0.6 % (0-1); Eosinophil# 0.51 X10^3/uL; Eosinophils% 4.6 % (0-5); Hematocrit 38.7 % (40-54); Hemoglobin 12.2 g/dL (13.0-16.5); Lymphocyte # 2.17 X10^3/ul (0.83-4.51); Lymphocyte % 19.5 % (19-41); Mean Corp Hgb Conc 31.5 g/dL (32-36); Mean Corpuscular Hgb 26.9 pg (27.0-32.0); Mean Corpuscular Volume 85.4 fL (80-94); Mean Platelet Vol. 10.4 fl (6.2-12.0); Monocyte% 12.6 % (0-10); NRBC Flagged by Analyzer 0 % (0-5); Neutrophil # 6.91 X10^3/uL (2.7-7.7); Neutrophil % 62.1 % (47-70); Platelet Count 314 K/mm3 (150-450); RBC Distribution Width CV 13.7 % (11.6-14.6); RBC Distribution Width SD 42.8 fl (35.1-43.9); Red Blood Count 4.53 M/mm3 (4.6-6.2); White Blood Count 11.1 K/mm3 (4.4-11.0)
[2024-06-24] MEDS: Dextrose 10%-Water 250 ML 999 ML IV (02:25)
[2024-06-24 02:32] LABS: Anion Gap 9 (5-15); BUN 21 mg/dL (7-18); BUN/Creat Ratio 19.3 RATIO (10-20); Calcium,Total 9.2 mg/dL (8.5-10.1); Chloride 102 mmol/L (98-107); Creatinine, Serum 1.09 mg/dL (0.70-1.30); EST Glomerular Filtration Rate 69 mL/min (>60); Est Glom Filt Rate - Afr Amer 84 mL/min (>60); Estimated Creatinine Clearance 79.37 ml/min; Glucose 56 mg/dL (74-106); Potassium 3.5 mmol/L (3.5-5.1); Sodium Level 136 mmol/L (136-145)
[2024-06-24 02:42] VITALS: BP 137/84; PULSE 74; RESP 16; O2SAT 99
[2024-06-24 03:00] VITALS: BP 138/85; PULSE 74; RESP 16; TEMP 36.6; O2SAT 97
[2024-06-24 03:25] LABS: Bedside Glucose 150 mg/dL (74-106)
--- NOTE | 2024-06-24 03:32 | EX.ED.DYSGE1 ---
HPI History of Present Illness Chief Complaint: Confusion Informant: patient and EMS Narrative Narrative: Patient is an 79-year-old male with past medical history of hypertension hyperlipidemia paroxysmal atrial fibrillation currently on Eliquis and insulin-dependent diabetes. He states that he was with his daughter throughout the day and ate dinner at her house. He states he took his insulin as directed. He reports he went to bed and then woke a few hours later not feeling right. He states he was trying to check his blood sugar but could not get a read and therefore he called EMS. EMS states when they arrived the patient was awake but slightly confused and they checked his blood sugar and it was low at 42 and secondary to this they tried giving him oral glucose tablets but his blood sugar was not improving so he was brought to the hospital for evaluation. Upon arrival to the ER the blood sugar is not elevated to 84 and patient has no complaints He denies taking any extra medication or feeling sick in any way [facility] Medical History Dyspnea Diabetes Sleep apnea Atrial fibrillation Cancer Walker as ambulation aid Arthritis Bladder disease Prostate disease Complete edentulism, class III Gastric reflux CPAP (continuous positive airway pressure) dependence History of pain when walking History of edema History of echocardiogram History of stress test Cardiology follow-up encounter Blindness Bladder cancer Restrictive airway disease Morbid obesity Pneumonia due to COVID-19 virus Left lower lobe pneumonia Acute respiratory failure with hypoxia Wears hearing aid Wears glasses Insulin dependent diabetes mellitus Psoriasis High cholesterol Restless legs Back pain Injury of back Dietary restriction Former smoker Shortness of breath on exertion Hypertension Right bundle branch 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 Nonobstructive atherosclerosis of coronary artery Obesity BPH (benign prostatic hyperplasia) Hyperlipidemia Essential (primary) hypertension Atrial fibrillation with RVR (02/05/21) Home Medications ?Medication ?Instructions ?Recorded ?Last Taken ?Type simvastatin 40 mg tablet 40 mg PO QHS cholesterol 04/21/15 Unknown History apixaban 5 mg tablet (Eliquis) 5 mg PO BID #180 tabs 02/22/21 05/03/24 Rx aspirin 81 mg tablet,delayed 81 mg PO DAILY #90 tabs 02/22/21 04/30/24 Rx release carvedilol 25 mg tablet 25 mg PO BID #180 tabs 02/22/21 05/07/24 09:30 Rx losartan 100 1 tab PO DAILY 06/23/21 Unknown History mg-hydrochlorothiazide 12.5 mg tablet insulin lispro 100 unit/mL 26 unit subcut TID diabetes 10/24/21 Unknown History subcutaneous pen (Humalog KwikPen (U-100) Insulin) metformin 500 mg tablet,extended 1,000 mg PO BID 10/24/21 Unknown History release 24 hr albuterol sulfate 90 mcg/actuation 1 inh inhalation Q6H PRN SOB #8.5 11/30/21 Unknown Rx aerosol inhaler grams colestipol 1 gram tablet 1 g PO DAILY 01/30/22 Unknown History finasteride 5 mg tablet 5 mg PO DAILY 10/27/22 Unknown History NUVOFLEX 1 cap PO DAILY 09/22/23 Unknown History famotidine 20 mg tablet 20 mg PO BID 09/22/23 05/07/24 09:30 History insulin glargine 100 unit/mL (3 90 unit subcut QHS 09/22/23 Unknown History mL) subcutaneous pen (Basaglar KwikPen U-100 Insulin) flecainide 150 mg tablet 150 mg PO Q12H 10/24/23 05/07/24 09:30 History turmeric root extract 500 mg 1,000 mg PO DAILY 10/24/23 Unknown History capsule oxybutynin chloride 10 mg 15 mg PO DAILY 05/05/24 Unknown History tablet,extended release 24 hr cephalexin 500 mg capsule 500 mg PO Q6 06/08/24 Unknown History diltiazem HCl 120 mg 120 mg PO DAILY 06/08/24 Unknown History capsule,extended release 24 hr (Cartia XT) Allergy/AdvReac Type Severity Reaction Status Date / Time amoxicillin Allergy Rash Verified 06/24/24 01:42 Family History Sister Colon cancer Brother Diabetes Mother Diabetes Heart disease Cancer Father Heart disease Cancer Diabetes Surgical History Hx of right cataract extraction Hx of colonoscopy Hx of transurethral resection of prostate H/O wrist surgery History of left heart catheterization (02/07/21) Hx of umbilical hernia repair Hx of cholecystectomy Status post surgical manipulation of ankle joint H/O hemorrhoidectomy Social History household members: spouse Smoking Status: Former smoker how long ago did patient quit smokin years ago alcohol intake: never substance use type: does not use caffeine: Yes Type: coffee Number of servings: 1 ROS ROS ED Constitutional Constitutional ED: Denies chills or fever(s) Eyes Eyes: Denies blurry vision or change in vision ENT ENT ED: Denies rhinorrhea or sore throat Cardiovascular Cardiovascular: Denies chest pain Respiratory/Chest Respiratory/Chest: Denies cough or dyspnea Gastrointestinal Gastrointestinal: Denies abdominal pain, diarrhea, nausea or vomiting Genitourinary Genitourinary ED: Denies dysuria Musculoskeletal Musculoskeletal: Denies myalgias Integumentary Denies rash Neurologic Neurologic: Denies headache(s) Hematologic/Lymphatic Hematologic/Lymphatic: Reports easy bleeding and easy bruising EXAM Physical Exam Const Vital Signs: 06/24/24 01:43 Temperature 98 F Temperature Source Temporal Pulse Rate 63 Respiratory Rate 16 Blood Pressure 111/54 L Blood Pressure Mean 73 Pulse Ox 95 Positive well nourished, well developed and obese General Appearance ED: well developed; Negative for pallor Nutritional Appearance: obese HEENT Reports moist mucous membranes HEENT Narrative: No tongue or lip swelling no oral lesions no airway edema or compromise No secondary findings to suggest infection in the posterior pharynx Eyes PERRL and EOMs intact bilaterally General Eye ED: Negative for scleral icterus Neck supple Neck Narrative: No nuchal rigidity or meningeal signs Chest Wall palpation of chest normal Resp normal respiratory effort and clear to auscultation bilaterally Resp Narrative: Breath sounds are diminished throughout but overall clear to auscultation without signs of respiratory distress Cardio regular rate and regular rhythm GI normal to inspection, nondistended, normoactive bowel sounds, non-tender, non-distended and no masses GI Narrative: No voluntary guarding or rigidity or pulsatile mass Auscultation: normoactive bowel sounds Palpation: soft Extremity Extremity Narrative: +1 pitting edema to the bilateral lower extremities that is equal and symmetric Neuro oriented x3, CN's II-XII intact bilaterally and no sensory deficits noted Neuro Narrative: Patient is awake alert and oriented to person place and time GCS of 15 No focal neurologic deficit noted Sensorium / Orientation: alert Motor Exam: strength 5/5 throughout Psych mental status grossly normal Skin no rashes or lesions noted General Skin Exam: Negative for jaundice or pallor MDM MDM MDM Narrative Medical decision making narrative: Patient arrived to the ER with stable vitals and had improvement in his mental status with his blood sugar increasing from approximately 40-80. He stated he took his medications as directed and denies any excessive medication use and also reports he has not been sick in any way. In order to ensure there is no signs of acute kidney injury or electrolyte abnormality or acute blood loss anemia or DKA or HHS I did elect to perform basic labs. Patient was given 25 g of D10 secondary to the hypoglycemia. Lab work revealed no clinically significant findings with stable H&H no left shift no signs of acute kidney injury or severe electro abnormality or derangement to his bicarb or anion gap. He was also able to eat and drink in the ER. On reevaluation his blood sugar is holding stable at 150. Therefore as he is not persistently hypoglycemic he does not need admitted for a D5 half-normal drip. He does not have physical exam findings or laboratory studies to suggest infection or metabolic derangement. Therefore he is otherwise safe for discharge History & Record Review Discussion w/independent historian: EMS personnel and Patient Lab Data Attestation: I reviewed the patient's lab results. Labs: Laboratory Results - last 24 hr 06/24/24 06/24/24 06/24/24 01:30 01:49 03:06 WBC 11.1 H RBC 4.53 L Hgb 12.2 L Hct 38.7 L MCV 85.4 MCH 26.9 L MCHC 31.5 L RDW Std Deviation 42.8 RDW Coeff of Lucia 13.7 Plt Count 314 MPV 10.4 Immature Gran % (Auto) 0.600 Neut % (Auto) 62.1 Lymph % (Auto) 19.5 [place] % (Auto) 12.6 H Eos % (Auto) 4.6 Baso % (Auto) 0.6 Absolute Neuts (auto) 6.9 Absolute Lymphs (auto) 2.17 Nucleated RBC % 0 Sodium 136 Potassium 3.5 Chloride 102 Carbon Dioxide 25.0 Anion Gap 9 BUN 21 H Creatinine 1.09 Estim Creat Clear Calc 79.37 Est GFR (MDRD) Af Amer 84 Est GFR (MDRD) Non-Af 69 BUN/Creatinine Ratio 19.3 Glucose 56 L Calcium 9.2 POC Glucose 84 150 H Discharge Plan Triage Chief Complaint: Confusion ED Provider: Mani Esquivel Dx/Rx/DC Orders Clinical Impression: Hypoglycemia, Essential (primary) hypertension, Hyperlipidemia, Paroxysmal atrial fibrillation, Current use of filler leaf cutter long anticoagulation Instructions: Hypoglycemia (Low Blood Sugar) Prescriptions: No Action Eliquis 5 mg tablet 5 mg PO BID Qty: 180 3RF aspirin 81 mg tablet,delayed release (DR/EC) 81 mg PO DAILY Qty: 90 3RF carvedilol 25 mg tablet 25 mg PO BID Qty: 180 3RF losartan-hydrochlorothiazide 100-12.5 mg tablet 1 tab PO DAILY metformin 500 mg tablet extended release 24 hr 1,000 mg PO BID albuterol sulfate 90 mcg/actuation HFA aerosol inhaler 1 inh INHALATION Q6H PRN (Reason: SOB) Qty: 8.5 6RF flecainide 150 mg tablet 150 mg PO Q12H turmeric root extract 500 mg capsule 1,000 mg PO DAILY simvastatin 40 MG tablet 40 mg PO QHS insulin lispro [Humalog KwikPen Insulin] 100 unit/mL insulin pen 26 unit SUBCUT TID colestipol 1 gram tablet 1 g PO DAILY famotidine 20 mg tablet 20 mg PO BID Patient Comments: take 1 tablet by mouth twice a day insulin glargine [Basaglar KwikPen U-100 Insulin] 100 unit/mL (3 mL) insulin pen 90 unit subcut QHS NUVOFLEX 1 cap PO DAILY oxybutynin chloride 10 mg tablet extended release 24hr 15 mg PO DAILY diltiazem HCl [Cartia XT] 120 mg capsule,extended release 24hr 120 mg PO DAILY cephalexin 500 mg capsule 500 mg PO Q6 Rx Instructions: on more dose finasteride 5 mg tablet 5 mg PO DAILY Primary Care Provider: Jeff Subramanian Referrals: Jeff Subramanian MD [Primary Care Provider] - Print Language: Micronesian Disposition Disposition: Home, Self Care
== END 2024-06-24 03:49 | disposition home or self-care (01) ==
PROVIDERS: Emergency Provider Emergency Medicine; PCP Family Medicine; Visit Provider Emergency Medicine
DX: E11.649 Type 2 diabetes mellitus with hypoglycemia without coma (principal); I48.0 Paroxysmal atrial fibrillation; Z79.4 Long term (current) use of insulin; I10 Essential (primary) hypertension; Z79.01 Long term (current) use of anticoagulants; Z87.891 Personal history of nicotine dependence; I25.10 Atherosclerotic heart disease of native coronary artery without angina pectoris; E78.5 Hyperlipidemia, unspecified; E66.9 Obesity, unspecified; Z90.49 Acquired absence of other specified parts of digestive tract; N40.0 Benign prostatic hyperplasia without lower urinary tract symptoms; Z86.16 Personal history of COVID-19
CPT/HCPCS: 80048; 82962; 85025; 99284; A4216

== ENCOUNTER → 2024-07-04 | Outpatient (CLI) | payer MEDICARE, SELFPAY ==
[2024-07-04 17:06] LABS: Anion Gap 5 (5-15); BUN 19 mg/dL (7-18); BUN/Creat Ratio 16.7 RATIO (10-20); Calcium,Total 9.6 mg/dL (8.5-10.1); Chloride 102 mmol/L (98-107); Creatinine, Serum 1.14 mg/dL (0.70-1.30); EST Glomerular Filtration Rate 66 mL/min (>60); Est Glom Filt Rate - Afr Amer 79 mL/min (>60); Glucose 111 mg/dL (74-106); Sodium Level 134 mmol/L (136-145)
== END | disposition home or self-care (01) ==
LOC: LAB 16:10
PROVIDERS: PCP Family Medicine; Referring Provider Nurse Practitioner Family; Visit Provider Nurse Practitioner Family
DX: E87.6 Hypokalemia (principal)
CPT/HCPCS: 36415; 80048

== ENCOUNTER → 2024-07-08 | Outpatient (CLI) | payer MEDICARE, SELFPAY | END | disposition home or self-care (01) | LOC: LABSPEC 15:41 | PROVIDERS: PCP Family Medicine; Referring Provider Urology; Visit Provider Urology | DX: R31.0 Gross hematuria (principal) | CPT/HCPCS: 87086; 87088 ==

== ENCOUNTER 2024-07-10 03:35 | Observation (INO) | payer MEDICARE, SELFPAY ==
[2024-07-10] VITALS (9 sets, daily range): BP systolic 130–163; BP diastolic 55–77; PULSE 74–88; RESP 14–26; TEMP 36.2–36.6; O2SAT 90–94; BMI 40.1; BMI 37.0
--- NOTE | 2024-07-10 03:47 | EKG12_ITS ---
Test Reason : REPEAT CP Blood Pressure : / mmHG Vent. Rate : 087 BPM Atrial Rate : 087 BPM P-R Int : 240 ms QRS Dur : 158 ms QT Int : 414 ms P-R-T Axes : 084 -73 039 degrees QTc Int : 498 ms Sinus rhythm with 1st degree A-V block Right bundle branch block Left anterior fascicular block Bifascicular block Abnormal ECG Confirmed by ROLAND SAMUEL, MIGUEL ANGEL ([id number]), story editor ENID CLINTON ([id number]) on 07/11/2024 10:08:44 AM Referred By: Confirmed By:MIGUEL ANGEL WATKINS MD
--- NOTE | 2024-07-10 03:48 | ED.VIS.CHEST ---
HPI History of Present Illness Chief Complaint: Chest Pain Narrative Narrative: 79-year-old male past medical history of atrial fibrillation on Eliquis, hypertension, presents with chest pain that began in the middle of the night and it woke him up from sleep. He states everything was fine when he went to bed. He awoke with sharp stabbing pain in the middle of his chest. No recent fevers or chills, no cough, no shortness of breath, no nausea or vomiting with this, no diaphoresis. He denies any leg swelling. He states that the symptoms only lasted for about 4 minutes. He called his daughter who told him to call 911. He states he is currently pain-free and that his chest pain has resolved. [facility] Medical History Dyspnea Diabetes Sleep apnea Atrial fibrillation Cancer Walker as ambulation aid Arthritis Bladder disease Prostate disease Complete edentulism, class III Gastric reflux CPAP (continuous positive airway pressure) dependence History of pain when walking History of edema History of echocardiogram History of stress test Cardiology follow-up encounter Blindness Bladder cancer Restrictive airway disease Morbid obesity Pneumonia due to COVID-19 virus Left lower lobe pneumonia Acute respiratory failure with hypoxia Wears hearing aid Wears glasses Insulin dependent diabetes mellitus Psoriasis High cholesterol Restless legs Back pain Injury of back Dietary restriction Former smoker Shortness of breath on exertion Hypertension Right bundle branch 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 Nonobstructive atherosclerosis of coronary artery Obesity BPH (benign prostatic hyperplasia) Hyperlipidemia Essential (primary) hypertension Atrial fibrillation with RVR (02/05/21) Home Medications ?Medication ?Instructions ?Recorded ?Last Taken ?Type simvastatin 40 mg tablet 40 mg PO QHS cholesterol 04/21/15 Unknown History apixaban 5 mg tablet (Eliquis) 5 mg PO BID #180 tabs 02/22/21 05/03/24 Rx aspirin 81 mg tablet,delayed 81 mg PO DAILY #90 tabs 02/22/21 04/30/24 Rx release carvedilol 25 mg tablet 25 mg PO BID #180 tabs 02/22/21 05/07/24 09:30 Rx losartan 100 1 tab PO DAILY 06/23/21 Unknown History mg-hydrochlorothiazide 12.5 mg tablet insulin lispro 100 unit/mL 26 unit subcut TID diabetes 10/24/21 Unknown History subcutaneous pen (Humalog KwikPen (U-100) Insulin) metformin 500 mg tablet,extended 1,000 mg PO BID 10/24/21 Unknown History release 24 hr albuterol sulfate 90 mcg/actuation 1 inh inhalation Q6H PRN SOB #8.5 11/30/21 Unknown Rx aerosol inhaler grams colestipol 1 gram tablet 1 g PO DAILY 01/30/22 Unknown History finasteride 5 mg tablet 5 mg PO DAILY 10/27/22 Unknown History NUVOFLEX 1 cap PO DAILY 09/22/23 Unknown History famotidine 20 mg tablet 20 mg PO BID 09/22/23 05/07/24 09:30 History insulin glargine 100 unit/mL (3 90 unit subcut QHS 09/22/23 Unknown History mL) subcutaneous pen (Basaglar KwikPen U-100 Insulin) flecainide 150 mg tablet 150 mg PO Q12H 10/24/23 05/07/24 09:30 History turmeric root extract 500 mg 1,000 mg PO DAILY 10/24/23 Unknown History capsule oxybutynin chloride 10 mg 15 mg PO DAILY 05/05/24 Unknown History tablet,extended release 24 hr diltiazem HCl 120 mg 120 mg PO DAILY 06/08/24 Unknown History capsule,extended release 24 hr (Cartia XT) Allergy/AdvReac Type Severity Reaction Status Date / Time amoxicillin Allergy Rash Verified 07/10/24 03:36 Family History Sister Colon cancer Brother Diabetes Mother Diabetes Heart disease Cancer Father Heart disease Cancer Diabetes Surgical History Hx of right cataract extraction Hx of colonoscopy Hx of transurethral resection of prostate H/O wrist surgery History of left heart catheterization (02/07/21) Hx of umbilical hernia repair Hx of cholecystectomy Status post surgical manipulation of ankle joint H/O hemorrhoidectomy Social History household members: spouse Smoking Status: Former smoker how long ago did patient quit smokin years ago alcohol intake: never substance use type: does not use caffeine: Yes Type: coffee Number of servings: 1 ROS ROS ED ROS Narrative Constitutional: No fever, no chills. HEENT: No sore throat. No neck pain. No loss of vision. No rhinorrhea. Cardiovascular: Positive midsternal, nonradiating chest pain. No palpitations. No pedal edema. Respiratory: No cough, no shortness of breath. Abdominal: No abdominal pain. No nausea. No vomiting. Genitourinary: No dysuria. No hematuria. Musculoskeletal: No myalgias. No arthralgias. Neurologic: No headaches. No dizziness. No lightheadedness. Skin: No rash. No change in color. Psychiatric: No depression. No anxiety. EXAM Physical Exam Narrative Exam Narrative: Afebrile. Vital signs noted. Regular rate and rhythm. Distant heart sounds. Positive murmur. Lungs clear to auscultation bilaterally. Abdomen soft and nontender with normal active bowel sounds. Neurological examination shows him to be awake, alert, and is nonfocal and nonlateralizing. Const Vital Signs: 07/10/24 03:36 07/10/24 03:40 07/10/24 04:02 Temperature 97.6 F L Temperature Source Oral Pulse Rate 87 Respiratory Rate 14 Respiratory Pattern Tachypnea Blood Pressure 153/73 H Blood Pressure Mean 99 Pulse Ox 90 Oxygen Delivery Method Room Air 07/10/24 04:47 Temperature Temperature Source Pulse Rate 87 Respiratory Rate 22 H Respiratory Pattern Blood Pressure 163/73 H Blood Pressure Mean 103 Pulse Ox 92 Oxygen Delivery Method Room Air MDM MDM MDM Narrative Medical decision making narrative: Differential diagnosis includes but not limited to acute coronary syndrome versus GERD versus pneumothorax versus pneumonia. Clinically, history and physical does not support pneumonia either, and I doubt pneumothorax as he has equal breath sounds bilaterally. Initial EKG was obtained and interpreted by myself independently as normal sinus rhythm at 87 bpm with bifascicular block, no acute ST changes. No STEMI. No significant change from prehospital EKG, no significant change from previous EKG from a month ago. I reviewed his initial laboratory work that returned and he has slightly elevated white count of 17.5/leukocytosis which I think is nonspecific thus far and when compared to previous laboratories, he almost has a chronic leukocytosis., hemoglobin stable at 12.5, hematocrit 39.2. Platelet count normal at 255. Review of his BMP shows BUN slightly elevated 27 with creatinine 1.24, glucose elevated 152 with a normal anion gap of 5. BNP is normal at 54.9 and initial high-sensitivity troponin is 8. Chest x-ray in 1 view interpreted by myself shows no acute process, no pneumothorax. I was called to the room to evaluate the patient because he stated to the RN that he was having excruciating left-sided chest pain. He states it happened 3 times, and although he might be having chest pain currently, he was asking for something to drink. Repeat EKG was performed. Second EKG interpreted by myself independently shows normal sinus rhythm at 87 bpm with a bifascicular block, no acute ST changes. No significant change from previous EKG. I reviewed his prior outpatient record. He did have an echocardiogram performed in March of this year which showed he had aortic stenosis from calcified valve which explains his holosystolic murmur. He has not had a stress test since November 2022, over a year and a half ago. Repeat troponin is also 8. However, since he continued to have chest pain intermittently in the emergency department, I discussed patient with Dr. Mcgrath for observation in the PCU. Given the patient's leukocytosis he would like a urinalysis added. Disposition is assigned observation. Patient is in stable condition. History & Record Review Discussion w/independent historian: Patient and Family (Daughter) Additional record(s) reviewed:: Prior labs Lab Data Attestation: I reviewed the patient's lab results. Labs: Laboratory Results - last 24 hr 07/10/24 03:40 WBC 17.5 H RBC 4.55 L Hgb 12.5 L Hct 39.2 L MCV 86.2 MCH 27.5 MCHC 31.9 L RDW Std Deviation 42.7 RDW Coeff of Lucia 13.7 Plt Count 255 MPV 11.3 Immature Gran % (Auto) 0.400 Neut % (Auto) 81.9 H Lymph % (Auto) 7.5 L [place] % (Auto) 7.9 Eos % (Auto) 2.0 Baso % (Auto) 0.3 Absolute Neuts (auto) 14.3 H Absolute Lymphs (auto) 1.31 Nucleated RBC % 0 Sodium 137 Potassium 3.8 Chloride 103 Carbon Dioxide 29.0 Anion Gap 5 BUN 27 H Creatinine 1.24 Estim Creat Clear Calc 69.31 Est GFR (MDRD) Af Amer 72 Est GFR (MDRD) Non-Af 60 BUN/Creatinine Ratio 21.8 H Glucose 152 H Calcium 9.4 Troponin I High Sens 8 B-Natriuretic Peptide 54.9 Radiography Chest X-Ray - ED: 1 View, Read by ED Physician and Read by Radiologist Diagnostic Testing: Clinical Impression(s) from Imaging Studies Chest X-Ray 07/10/24 04:00 IMPRESSION: Stable cardiomegaly. Interval development of slight blunting of the costophrenic angles suspicious for small pleural effusions. No pneumonia or pulmonary edema. Electronically Signed: Otis Bryan MD at 5:55 EDT , Management Discussion w/another healthcare provider: Hospitalist (Dr. Mcgrath) Discharge Plan Dx/Rx/DC Orders Clinical Impression: Chest pain, Right bundle branch 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, Leukocytosis Disposition Disposition: Acute Care Hospital [facility] Discharge Date/Time: 07/10/24 07:40
[2024-07-10 03:54] LABS: Absolute Lymphocyte Count 1.31 X10^3/uL (0.83-4.51); Absolute Neutrophil Count 14.3 X10^3/uL (2.0-7.7); Basophil# 0.05 X10^3/uL; Basophil% 0.3 % (0-1); Eosinophil# 0.35 X10^3/uL; Hematocrit 39.2 % (40-54); Hemoglobin 12.5 g/dL (13.0-16.5); Lymphocyte # 1.31 X10^3/ul (0.83-4.51); Lymphocyte % 7.5 % (19-41); Mean Corp Hgb Conc 31.9 g/dL (32-36); Mean Corpuscular Hgb 27.5 pg (27.0-32.0); Mean Corpuscular Volume 86.2 fL (80-94); Mean Platelet Vol. 11.3 fl (6.2-12.0); Monocyte# 1.37 X10^3/uL; Monocyte% 7.9 % (0-10); NRBC Flagged by Analyzer 0 % (0-5); Neutrophil % 81.9 % (47-70); Platelet Count 255 K/mm3 (150-450); RBC Distribution Width CV 13.7 % (11.6-14.6); RBC Distribution Width SD 42.7 fl (35.1-43.9); Red Blood Count 4.55 M/mm3 (4.6-6.2); White Blood Count 17.5 K/mm3 (4.4-11.0)
--- NOTE | 2024-07-10 04:00 | RAD_ITS ---
EXAM: XR CHEST, 1 VIEW CLINICAL INDICATION: chest pain TECHNIQUE: Frontal view of the chest. COMPARISON: Previous chest radiographs of 06/08/2024, 09/22/2023, and 11/21/2022. FINDINGS: LUNGS AND PLEURAL SPACES: Stable mild fibrotic changes in the mid to lower lungs. No consolidation or edema. No pneumothorax. Interval development of slight blunting of the costophrenic angles consistent with small pleural effusions. HEART: Heart size remains mildly enlarged. Normal pulmonary vasculature. MEDIASTINUM: Central airways and mediastinal contour are unremarkable. BONES/JOINTS: Thoracic degenerative spurring. No acute osseous abnormality. SOFT TISSUES: Unremarkable. RAD/Chest 1 View (Portable) IMPRESSION: Stable cardiomegaly. Interval development of slight blunting of the costophrenic angles suspicious for small pleural effusions. No pneumonia or pulmonary edema. Electronically Signed: Otis Bryan MD at 5:55 EDT ,
--- NOTE | 2024-07-10 04:15 | EKG12_ITS ---
Test Reason : CP Blood Pressure : / mmHG Vent. Rate : 087 BPM Atrial Rate : 000 BPM P-R Int : 000 ms QRS Dur : 160 ms QT Int : 418 ms P-R-T Axes : 000 -73 048 degrees QTc Int : 502 ms Normal sinus rhythm with 1st degree A-V block Right bundle branch block Left anterior fascicular block Bifascicular block Abnormal ECG Confirmed by ROLAND SAMUEL, MIGUEL ANGEL ([id number]), story editor ENID CLINTON ([id number]) on 07/11/2024 10:09:23 AM Referred By: LATOYA Confirmed By:MIGUEL ANGEL WATKINS MD
--- OUTSIDE RECORDS SUMMARY | 2024-07-10 04:19 | XMS RPT_ITS | CCD ---
Author Organization [facility] Care Team Providers Care Student Services Counselor Name Role Phone Jeff Virgen MD Primary Care Provider [facility], Keti Unavailable [facility], Kaitlyn Unavailable Jeff Virgen MD Primary Care Provider [facility], Kaitlyn Unavailable Jeff Virgen MD Primary Care Provider MELVIN BINGHAM Attending Unavailable JEFF VIRGEN Primary Care Unavailable [facility], Keti Unavailable [facility], Kaitlyn Unavailable JEFF VIRGEN Primary Care Unavailable JEFF VIRGEN Referring Unavailable ANUM CHEUNG Attending Unavailable JEFF VIRGEN Primary Care Unavailable ANUM CHEUNG Referring Unavailable JEFF VIRGEN Primary Care Unavailable JEFF VIRGEN Primary Care Unavailable JARVIS NICOLE Attending Unavailab JEFF Kwong Primary Care Unavailable JEFF VIRGEN Referring Unavailable JEFF VIRGEN Attending Unavailable JEFF VIRGEN Primary Care Unavailable Osvaldo TRAVIS Attending Unavailable JEFF VIRGEN Primary Care Unavailable Osvaldo TRAVIS Referring Unavailable SUNNY DUVAL Attending Unavailable JEFF VIRGEN Primary Care Unavailable JEFF VIRGEN Primary Care Unavailable JEFF VIRGEN Primary Care Unavailable JARVIS NICOLE Referring Unavailab Osvaldo Lewis Referring Unavailable JEFF VIRGEN Primary Care Unavailable Osvaldo TRAVIS Referring Unavailable JEFF VIRGEN Primary Care Unavailable Osvaldo TRAVIS Attending Unavailable JEFF VIRGEN Primary Care Unavailable Osvaldo TRAVIS Referring Unavailable JEFF VIRGEN Primary Care Unavailable Osvaldo TRAVIS Referring Unavailable JEFF VIRGEN Primary Care Unavailable Osvaldo TRAVIS Referring Unavailable JEFF VIRGEN Primary Care Unavailable JEFF VIRGEN Primary Care Unavailable JEFF VIRGEN Primary Care Unavailable JEFF VIRGEN Referring Unavailable JEFF VIRGEN Primary Care Unavailable JEFF VIRGEN Attending Unavailable Allergies Allergy Classification Reported Allergen(s) Allergy Type Date of Onset Reaction(s) Facility Penicillins (antibiotic) (2 sources) Amoxicillin Drug Allergy 05-11-2005 [facility] (20 sources) Amoxicillin; Translations: [AMOXICILLIN] Drug Allergy 05-11-2005 [facility] Medications Current Medications Medication Drug Class(es) Dates Sig (Normalized) Sig (Original) [id number] 200 actuat albuterol 0.09 mg/actuat metered dose inhaler (20 sources) beta2-Adrenergic Agonist Start: 06-09-2023 End: 01-18-2024 take 2 puff(s) by inhalation every four hours as needed albuterol HFA (VENTOLIN HFA) 90 mcg/actuation inhaler Indications: Viral URI with cough , Bronchitis Inhale 2 Puffs as instructed every 4 hours as needed. 1 Each 1 01/18/2024 Active Comment on above: Inhale 2 Puffs as in structed every 4 hours as needed. apixaban 5 mg oral tablet (20 sources) Factor Xa Inhibitor Start: 10-17-2021 End: 06-20-2025 take 1 tablet by mouth twice daily ELIQUIS 5 mg tab(s) Indications: Paroxysmal atrial fibrillation (HCC) Take 1 tablet by mouth two times a day. 60 tablet 11 06/20/2024 06/20/2025 Active Start: 02-07-2021 End: 10-14-2021 take 1 tablet by mouth twice daily ELIQUIS 5 mg tab(s) Take 5 mg by mouth twice daily. 02/07/2021 10/14/2021 Discontinued Comment on above: Take 1 tablet by srikanth th twice daily. Take 1 tablet by srikanth th two times a day. aspirin 81 mg chewable tablet (20 sources) Platelet Aggregation Inhibitor, Nonsteroidal Anti-inflammatory Drug Start: 02-08-20 take 1 tablet by mouth once daily aspirin 81 mg chewable tablet Take 81 mg by mouth once daily. 02/07/2021 Active Comment on above: Take 81 mg by mouth once daily. 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 6 Each 4 Active carvedilol 25 mg oral tablet (20 sources) alpha-Adrenergic Salvador, beta-Adrenergic Salvador Start: 04-09-20 End: 07-09-20 take 1 tablet by mouth twice daily carvedilol (COREG) 25 mg tablet Take 1 tablet by mouth two times a day. 180 tablet 1 07/09/2024 Active Start: 02-07-2021 End: 10-03-2022 take 1 tablet by mouth twice daily carvedilol (COREG) 25 mg tablet Take 25 mg by mouth twice daily. 02/07/2021 03/23/2022 Discontinued Comment on above: Take 25 mg by mouth twice daily. Take 1 tablet by srikanth th twice daily. Take 1 tablet by srikanth th two times a day. colestipol hydrochloride 1000 mg oral tablet (20 sources) Bile Acid Sequestrant Start: End: take 1 tablet by mouth once daily colestipol (COLESTID) 1 gram tablet Indications: Diarrhea, unspecified type Take 1 tablet by mouth once daily. 90 tablet 3 06/09/2024 06/09/2025 Active Start: 03-06-2022 End: 06-06-2024 take 1 tablet by mouth once daily colestipol (COLESTID) 1 gram tablet Indications: Diarrhea, unspecified type Take 1 tablet by mouth once daily. 90 tablet 3 06/07/2023 06/06/2024 Active Start: 01-12-2022 End: 01-12-2023 take 1 tablet by mouth every other day colestipol (COLESTID) 1 gram tablet Indications: Diarrhea, unspecified type Take 1 tablet by mouth every other day. 45 tablet 3 01/12/2022 03/06/2022 Discontinued Start: 07-26-2020 End: 01-12-2022 take 1 tablet by mouth twice daily colestipol (COLESTID) 1 gram tablet Indications: Diarrhea, unspecified type Take 1 tablet by mouth twice daily. 60 tablet 5 07/26/2020 01/12/2022 Discontinued Comment on above: Take 1 tablet by srikanth twice daily. Take 1 tablet by srikanth every other day. Take 1 tablet by srikanth once daily. 24 hr dilTIAZem hydrochloride 120 mg extended release oral capsule (20 sources) Calcium Channel Salvador Start: 02-22-2023 End: 11-13-2024 take 1 capsule by mouth once daily dilTIAZem CD (CARDIZEM CD, CARTIA XT) 120 mg 24 hr capsule Take 1 capsule by mouth once daily. 90 capsule 3 11/14/2023 11/13/2024 Active Start: 11-23-2022 End: 02-22-2023 dilTIAZem CD (CARDIZEM CD, C ARTIA XT) 120 mg 24 hr capsule Start: 11-23-2022 End: 01-19-2023 take 1 capsule by mouth once daily dilTIAZem CD (CARDIZEM CD) 120 mg 24 hr capsule Take 1 capsule by mouth once daily. 90 capsule 1 11/23/2022 01/19/2023 Discontinued Start: 03-02-2021 End: 03-23-2022 take 1 capsule by mouth once daily dilTIAZem CD (CARDIZEM CD) 120 mg 24 hr capsule Take 1 capsule by mouth once daily. 03/02/2021 03/23/2022 Discontinued Comment on above: Take 1 capsule by [facility] once daily. doxycycline hyclate 100 mg oral tablet (2 sources) Tetracycline-clas s Drug Start: 06-11-2023 End: 06-21-2023 take 1 tablet by mouth twice daily doxycycline (VIBRA-TABS) 100 mg tablet Take 1 tablet by mouth twice daily for 10 days. 20 tablet 0 06/11/2023 06/21/2023 Active Start: 05-21-2021 End: 05-31-2021 take 1 tablet by mouth twice daily doxycycline monohydrate 100 mg tablet Indications: Sebaceous cyst Take 1 tablet by mouth twice daily for 10 days. 20 tablet 05/21/2021 05/31/2021 Comment on above: Take 1 tablet by srikanth th twice daily for 10 days. famotidine 20 mg oral tablet (20 sources) Histamine-2 Receptor Antagonist Start: 01-18-2024 take 1 tablet by mouth twice daily famotidine (PEPCID) 20 mg tablet Indications: Nausea Take 1 tablet by mouth two times a day. 180 tablet 1 01/18/2024 Active Start: 09-24-2023 End: 12-23-2023 take 1 tablet by mouth twice daily famotidine (PEPCID) 20 mg tablet Indications: Nausea Take 1 tablet by mouth two times a day. 60 tablet 2 09/24/2023 12/23/2023 Active Start: 06-19-2023 End: 09-22-2023 take 1 tablet by mouth twice daily famotidine (PEPCID) 20 mg tablet Indications: Nausea Take 1 tablet by mouth two times a day. 60 tablet 2 06/19/2023 09/22/2023 Discontinued Start: 03-02-2023 End: 05-31-2023 take 1 tablet by mouth twice daily famotidine (PEPCID) 20 mg tablet Indications: Nausea Take 1 tablet by mouth twice daily. 60 tablet 2 03/02/2023 05/31/2023 Active Comment on above: Take 1 tablet by srikanth th twice daily. Take 1 tablet by srikanth th two times a day. finasteride 5 mg oral tablet (20 sources) 5-alpha Reductase Inhibitor Start: 12-13-2021 finasteride (PROSCAR) 5 mg tablet 12/13/2021 Active End: 11-03-2021 take 1 tablet by mouth once daily finasteride (PROSCAR) 5 mg tablet Take 5 mg by mouth once daily. Prescribed by Dr. Daley, Urologist 11/03/2021 Discontinued flecainide acetate 150 mg oral tablet (20 sources) Antiarrhythmic Start: 07-12-2023 End: 08-11-2023 take 1 tablet by mouth every twelve hours flecainide (TAMBOCOR) 150 mg tablet Take 1 tablet by mouth every 12 hours. Prescribed by outside fundraising specialist 60 tablet 07/12/2023 Active Start: 10-10-2021 take 1 tablet by srikanth th every twelve hours flecainide (TAMBOCOR) 150 mg tablet Take 1 tablet by mouth every 12 hours. Prescribed by outside fundraising specialist 0 10/10/2021 Active Start: 10-10-2021 End: 02-03-2022 take 1 tablet by mouth twice daily flecainide (TAMBOCOR) 150 mg tablet Take 150 mg by mouth twice daily. 0 10/10/2021 02/03/2022 Discontinued (Course of therapy completed) Comment on above: Take 1 tablet by srikanth th every 12 hours. Prescribed by outside fundraising specialist Take 150 mg by mouth twice daily. hydroCHLOROthiazide 12.5 mg / losartan potassium 100 mg oral tablet (20 sources) Thiazide Diuretic, Angiotensin 2 Receptor Salvador Start: End: 025 take 1 tablet by mouth once daily losartan-hydroCHLORO thiazide (HYZAAR) 100-12.5 mg per tablet Indications: Essential hypertension Take 1 tablet by mouth once daily. 90 tablet 1 05/05/2024 11/01/2024 Active Comment on above: Take 1 tablet by srikanth th once daily. 3 ml insulin glargine 100 unt/ml pen injector (20 sources) Insulin Analog Start: 023 insulin glargine (BASAGLAR KWIKPEN U-100 INSULIN) 100 unit/mL (3 mL) Inject 90 Units subcutaneously daily at bedtime. 15 mL 3 09/29/2022 Active Start: 11-03-2021 End: 09-29-2022 insulin glargine (BASAGLAR K CODYEN U-100 INSULIN) 100 unit/mL (3 mL) Inject 90 Units subcutaneously daily at bedtime. 15 mL 3 09/29/2022 Active Start: 04-21-2021 End: 09-23-2021 insulin glargine (LANTUS MARGARET OSTAR U-100 INSULIN) 100 unit/mL (3 mL) Indications: Type 2 diabetes mellitus without complication, with long-term current use of insulin (HCC) Inject 72 Units subcutaneously daily at bedtime. 8 Pen 5 07/07/2021 09/23/2021 Discontinued (Adjust Sig - Block E-Cancel) Start: 11-05-2020 End: 04-21-2021 insulin glargine (LANTUS MARGARET OSTAR U-100 INSULIN) 100 unit/mL (3 mL) Indications: Type 2 diabetes mellitus without complication, with long-term current use of insulin (HCC) Inject 66 Units subcutaneously daily at bedtime. 7 Pen 5 11/05/2020 04/21/2021 Discontinued Comment on above: Inject 90 Units subc utaneously daily at bedtime. Inject 90 Units subc utaneously daily at bedtime. Use this OR Semglee, not both. 3 ml insulin lispro 100 unt/ml pen injector (20 sources) Insulin Analog Start: 12-25-2023 insulin lispro (HUMALOG KWIKPEN INSULIN) 100 unit/mL Indications: Type 2 diabetes mellitus without complication, with long-term current use of insulin ([facility]) Inject 20 Units subcutaneously three times a day before meals. Getting through [employer] 5 Each 1 12/25/2023 Active Start: 12-06-2022 End: 12-25-2023 insulin lispro (HUMALOG KWIK PEN INSULIN) 100 unit/mL Indications: Type 2 diabetes mellitus without complication, with long-term current use of insulin ([facility]) Inject 22 Units subcutaneously three times daily before meals. Getting through [employer] 5 Each 1 12/06/2022 12/25/2023 Discontinued Start: 11-03-2021 End: 12-29-2021 insulin lispro (HUMALOG KWIK PEN INSULIN) 100 unit/mL Indications: Type 2 diabetes mellitus without complication, with long-term current use of insulin (HCC) Inject 26 Units subcutaneously three times daily before meals. 5 Pen 1 12/29/2021 Active Start: 05-25-2021 End: 08-18-2021 insulin lispro (HUMALOG KWIK PEN INSULIN) 100 unit/mL Indications: Type 2 diabetes mellitus without complication, with long-term current use of insulin (HCC) Inject 15 Units subcutaneously three times daily before meals for 14 days. 5 Pen 1 05/27/2021 08/18/2021 Discontinued Comment on above: Inject 26 Units subc utaneously three times daily before meals. Inject 22 Units subc utaneously three times daily before meals. Getting through [employer] Inject 20 Units subc utaneously three times a day before meals. Getting through [employer] Insulin Syringe-Needle U-100 1/2 mL 29 x 1/2 syrg (20 sources) Start: 2014 Insulin Syringe-Needle U-100 1/2 mL 29 x 1/2 syrg Indications: Diabetes mellitus type 2, insulin dependent (HCC) 1 Each once daily. USE ONE SYRINGE FOR EACH DOSE/1PER DAY, (E11.9, Z79.4) Diabetes mellitus type 2, insulin dependent. 50 Syringe 11 07/23/2015 Active Comment on above: 1 Each once daily. U SE ONE SYRINGE FOR EACH DOSE/1PER DAY, (E11.9, Z79.4) Diabetes mellitus type 2, insulin dependent. 24 hr metFORMIN hydrochloride 500 mg extended release oral tablet (20 sources) Biguanide Start: 2020 End: 2024 take 2 tablets by mouth twice daily before mealtime metFORMIN ER (GLUCOPHAGE XR) 500 mg 24 hr tablet Indications: Type 2 diabetes mellitus without complication, with long-term current use of insulin (HCC) Take 2 tablets by mouth two times a day before meals. 360 tablet 3 09/20/2023 09/19/2024 Active Comment on above: Take 2 tablets by mo ut twice daily before meals. Take 2 tablets by mo ut two times a day before meals. mupirocin 0.02 mg/mg topical ointment (5 sources) RNA Synthetase Inhibitor Antibacterial Start: 2023 End: 2023 mupirocin (BACTROBAN) 2 % ointment Apply to affected area three times a day for 5 days. 30 g 0 04/09/2024 04/14/2024 Active simvastatin 40 mg oral tablet (20 sources) HMG-CoA Reductase Inhibitor Start: 2019 End: 2022 take 1 tablet by mouth once daily at bedtime simvastatin (ZOCOR) 40 mg tablet Indications: Pure hypercholesterolemia Take 1 tablet by mouth daily at bedtime. 90 tablet 3 08/28/2023 Active Comment on above: Take 1 tablet by srikanth daily at bedtime. Completed/Discontinued Medications Medication Drug Class(es) Dates Sig (Normalized) Sig (Original) atenolol 50 mg oral tablet (1 source) beta-Adrenergic Salvador Start: 07-26-2020 End: 01-31-2021 take 1 tablet by mouth once daily atenolol (TENORMIN) 50 mg tablet Indications: Essential hypertension with goal blood pressure less than 140/90 Take 1 tablet by mouth once daily. 90 tablet 3 07/26/2020 01/31/2021 Discontinued (Course of therapy completed) benzonatate 100 mg oral capsule (2 sources) Non-narcotic Antitussive Start: 06-09-2023 End: 06-19-2023 take 1 capsule by mouth three times daily as needed benzonatate (TESSALON PERLE) 100 mg capsule Indications: Viral URI with cough , Bronchitis Take 1 capsule by mouth three times daily as needed for up to 10 days. 30 capsule 0 06/09/2023 06/19/2023 Comment on above: Take 1 capsule by [facility] three times daily as needed for up to 10 days. diclofenac sodium 0.01 mg/mg topical gel (20 sources) Nonsteroidal Anti-inflammatory Drug Start: 12-25-2023 End: 12-24-2024 diclofenac (VOLTAREN ARTHRITIS PAIN) 1 % topical gel Indications: Pain of right hip , Psoriatic arthritis (HCC) Apply 2 g to affected area four times daily. 240 g 11 12/25/2023 06/20/2024 Discontinued Comment on above: Apply 2 g to affecte d area four times daily. dutasteride 0.5 mg oral capsule (2 sources) 5-alpha Reductase Inhibitor Start: 09-22-2021 End: 12-15-2021 take 1 capsule by mouth once daily dutasteride (AVODART) 0.5 mg capsule Take 0.5 mg by mouth once daily. 0 09/22/2021 12/15/2021 Discontinued (Discontinued by another Health Care Provider) Comment on above: Take 0.5 mg by mouth once daily. empagliflozin 10 mg oral tablet (16 sources) Sodium-Glucose Cotransporter 2 Inhibitor Start: 06-22-2022 End: 11-29-2022 take 1 tablet by mouth once daily at breakfast empagliflozin (JARDIANCE) 10 mg tablet Take 1 tablet by mouth daily with breakfast. 30 tablet 5 06/22/2022 11/29/2022 Discontinued Comment on above: Take 1 tablet by srikanth daily with breakfast. furosemide 40 mg oral tablet (20 sources) Loop Diuretic Start: 02-04-2024 End: 06-20-2024 take 1 tablet by mouth once daily furosemide (LASIX) 40 mg tablet Indications: Varicose veins of both lower extremities with inflammation , Venous incompetence , Bilateral leg edema Take 1 tablet by mouth once daily. 3 tablet 02/28/2024 06/20/2024 Discontinued insulin glargine-yfgn (SEMGLEE,INSULIN GLARG-YFGN,PEN) 100 unit/mL (3 mL) insulin pen (6 sources) Start: 02-06-2022 End: 03-23-2022 insulin glargine-yfgn (SEMGLEE,INSULIN GLARG-YFGN,PEN) 100 unit/mL (3 mL) insulin pen Inject 90 Units subcutaneously daily at bedtime. Use this OR Lantus, not both. 5 Pen 0 02/06/2022 03/23/2022 Discontinued (Course of therapy completed) Start: 02-06-2022 insulin glargi ne-yfgn (SEMGLEE,INSULIN GLARG-YFGN,PEN) 100 unit/mL (3 mL) insulin pen Inject 90 Units subcutaneously daily at bedtime. Use this OR Lantus, not both. 5 Pen 0 02/06/2022 Active Comment on above: Inject 90 Units subc utaneously daily at bedtime. Use this OR Lantus, not both. lisinopril 20 mg oral tablet (1 source) Angiotensin Converting Enzyme Inhibitor Start: End: take 1 tablet by mouth once daily lisinopril (ZESTRIL) 20 mg tablet Indications: Essential hypertension Take 1 tablet by mouth once daily. 30 tablet 2 01/24/2021 01/31/2021 Discontinued (Course of therapy completed) perflutren lipid microspheres 1.3 mL in NaCl (PF) 0.9% 10 mL injection (DEFINITY) (20 sources) Start: End: perflutren lipid microspheres 1.3 mL in NaCl (PF) 0.9% 10 mL injection (DEFINITY) polymyxin b [id number] unt/ml / trimethoprim 1 mg/ml ophthalmic solution (17 sources) Dihydrofolate Reductase Inhibitor Antibacterial, Polymyxin-class Antibacterial Start: End: take 1 drop(s) into the eye(s) four times daily trimethoprim-polymyxi n (POLYTRIM) 10,000 unit- 1 mg/mL ophthalmic solution Indications: Conjunctivitis of both eyes, unspecified conjunctivitis type Use 1 Drop in both eyes four times daily. Do not fill after 12/16/2021. 10 mL 0 11/21/2021 03/06/2022 Discontinued Comment on above: Use 1 Drop in both e yes four times daily. Do not fill after 12/16/2021. sennosides, long-term 8.6 mg oral tablet (20 sources) Start: End: take 1 tablet by mouth every twelve hours as needed senna (SENOKOT) 8.6 mg tab Take 1 tablet by mouth twice daily as needed for constipation. 12 tablet 03/05/2023 11/14/2023 Discontinued Comment on above: Take 1 tablet by srikanth th twice daily as needed for constipation. 125 ml sodium chloride 9 mg/ml prefilled syringe (20 sources) Start: End: sodium chloride 0.9 % (flush) 10 mL (BD POSIFLUSH) spironolactone 25 mg oral tablet (20 sources) Aldosterone Antagonist Start: End: take 1 tablet by mouth once daily spironolactone (ALDACTONE) 25 mg tablet Take 1 tablet by mouth once daily. 90 tablet 1 04/14/2024 06/20/2024 Discontinued Start: 10-23-2022 End: 10-12-2023 take 1 tablet by mouth once daily spironolactone (ALDACTONE) 25 mg tablet Take 1 tablet by mouth once daily. 90 tablet 1 04/13/2023 10/12/2023 Discontinued Start: 02-22-2022 End: 03-23-2022 take 1 tablet by mouth once daily spironolactone (ALDACTONE) 25 mg tablet Take 1 tablet by mouth once daily. 90 tablet 1 03/23/2022 Active Comment on above: Take 25 mg by mouth once daily. Take 1 tablet by srikanth th once daily. tamsulosin hydrochloride 0.4 mg oral capsule (20 sources) alpha-Adrenergic Salvador End: take 1 capsule by mouth once daily tamsulosin ER (FLOMAX) 0.4 mg cap Take 0.4 mg by mouth once daily. Prescribed by Dr. Daley, Urologist 11/29/2022 Discontinued Comment on above: Take 0.4 mg by mouth once daily. Prescribed by Dr. Daley, Urologist Problems Active Problems Problem Classification Problem Date Documented Da te Episodic/Chronic Blindness and vision defects (20 sources) Blindness AND/OR vision impairment level; Translations: [Blindness, one eye, unspecified eye] Onset: 11-24-2009 11-24-2009 Chronic Cancer of bladder (8 sources) H/O: malignant neoplasm; Translations: [Personal history of malignant neoplasm of bladder] Onset: 06-20-2024 06-20-2024 Episodic Cardiac dysrhythmias (20 sources) Paroxysmal atrial fibrillation; Translations: [Paroxysmal atrial fibrillation] Onset: 02-15-2021 05-06-2021 Chronic Conditions associated with dizziness or vertigo (1 source) Dizziness and giddiness; Translations: [Lightheadedness] Onset: 04-12-2024 Episodic Conduction disorders (20 sources) 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 fascicular block; Translations: [Bifascicular block] Onset: 06-06-2023 06-06-2023 Chronic Coronary atherosclerosis and other heart disease (20 sources) Non-obstructive atherosclerosis of coronary artery; Translations: [Atherosclerotic heart disease of [place] coronary artery without angina pectoris] Onset: 06-06-2023 06-06-2023 Chronic Diabetes mellitus with complications (20 sources) Type 2 diabetes mellitus; Translations: [Type 2 diabetes mellitus with other diabetic kidney complication] Onset: 05-11-2005 08-18-2021 Chronic Diabetes mellitus without complication (14 sources) Type 2 diabetes mellitus without complication; Translations: [Type 2 diabetes mellitus without complications] Onset: 11-28-2023 Chronic Diseases of white blood cells (3 sources) Monocytosis; 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)] Chronic Disorders of lipid metabolism (20 sources) Pure hypercholesterolemia; Translations: [Pure hypercholesterolemia, unspecified] Onset: 06-13-2005 Resolved: 06-06-2023 06-09-2009 Chronic E Codes: Fall (1 source) Fall; Translations: [Unspecified fall, initial encounter] 05-18-2023 Episodic Essential hypertension (20 sources) Essential hypertension; Translations: [Essential (primary) hypertension] Onset: 05-11-2005 09-29-2015 Chronic Genitourinary symptoms and ill-defined conditions (6 sources) Retention of urine; Translations: [Retention of urine, unspecified] Onset: 08-18-2021 Episodic Hyperplasia of prostate (9 sources) Benign prostatic hyperplasia; Translations: [Benign prostatic hyperplasia with lower urinary tract symptoms] Onset: 06-20-2024 Chronic Immunizations and screening for infectious disease (6 sources) Viral screening status; Translations: [Encounter for screening for other viral diseases] Onset: 06-20-2024 Episodic Malaise and fatigue (3 sources) Asthenia; Translations: [Weakness] Onset: 06-20-2024 05-31-2024 Episodic Nonspecific chest pain (2 sources) Chest pain; Translations: [Chest pain, unspecified] Episodic Other aftercare (1 source) Wound ; Translations: [Encounter for other specified surgical aftercare] 05-01-2023 Episodic Other bone disease and musculoskeletal deformities (1 source) Disorder of bone, unspecified; Translations: [Disorder of bone] Onset: 06-20-2024 Episodic Other bone disease and musculoskeletal deformities (1 source) Disorder of bone; Translations: [Disorder of bone, unspecified] 06-20-2024 Episodic Other diseases of veins and lymphatics (2 sources) Lymphedema of left lower limb; Translations: [Lymphedema, not elsewhere classified] 03-21-2024 Chronic Other diseases of veins and lymphatics (1 source) Lymphedema, not elsewhere classified; Translations: [Lymphedema of left leg] Onset: 06-20-2024 Chronic Other diseases of veins and lymphatics (2 sources) Peripheral venous insufficiency; Translations: [Venous insufficiency (chronic) (peripheral)] 02-28-2024 Episodic Other endocrine disorders (1 source) Hypoglycemia; Translations: [Hypoglycemia, unspecified] Chronic Other gastrointestinal disorders (4 sources) Diarrhea; Translations: [Diarrhea, unspecified] Episodic Other gastrointestinal disorders (1 source) Acute constipation; Translations: [Constipation, unspecified] Episodic Other inflammatory condition of skin (20 sources) Psoriasis; Translations: [Other psoriasis] Onset: 05-11-2005 05-11-2005 Chronic Other inflammatory condition of skin (3 sources) Psoriatic arthritis; 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, unspecified] 12-25-2023 Chronic Other inflammatory condition of skin (1 source) Other psoriasis; Translations: [Other psoriasis] Onset: 05-11-2005 Chronic Other inflammatory condition of skin (1 source) Arthropathic psoriasis, unspecified; Translations: [Psoriatic arthritis (HCC)] Onset: 06-11-2024 Chronic Other lower respiratory disease (1 source) Rib pain; Translations: [Pleurodynia] 05-25-2021 Episodic Other lower respiratory disease (1 source) Snoring; Translations: [Snoring] Onset: 06-23-2024 Episodic Other lower respiratory disease (1 source) Apnea, not elsewhere classified; Translations: [Witnessed episode of apnea] Onset: 06-23-2024 Episodic Other lower respiratory disease (1 source) Snoring; Translations: [Snoring] 06-23-2024 Episodic Other lower respiratory disease (1 source) Apnea; Translations: [Apnea, not elsewhere classified] 06-23-2024 Episodic Other nervous system disorders (1 source) Other abnormal involuntary movements; Translations: [Nocturnal leg movements] Onset: 06-23-2024 Episodic Other nervous system disorders (1 source) Neurological finding; Translations: [Other abnormal involuntary movements] 06-23-2024 Episodic Other non-traumatic joint disorders (2 sources) Acute ankle pain; Translations: [Pain in left ankle and joints of left foot] Episodic Other non-traumatic joint disorders (2 sources) Hip pain; Translations: [Pain in right hip] 07-23-2023 Episodic Other non-traumatic joint disorders (2 sources) Pain in right hip joint; Translations: [Pain in right hip] 12-25-2023 Episodic Other nutritional; endocrine; and metabolic disorders (20 sources) Obesity; Translations: [Obesity, unspecified] Onset: 05-11-2005 05-11-2005 Chronic Other nutritional; endocrine; and metabolic disorders (20 sources) Obese class II; Translations: [Obesity, unspecified] Onset: 01-31-2021 01-31-2021 Chronic Other nutritional; endocrine; and metabolic disorders (3 sources) Weight gain; Translations: [Abnormal weight gain] 02-04-2024 Episodic Other skin disorders (1 source) Mass of [...] keratosis] 04-30-2023 Episodic Other upper respiratory infections (2 sources) Chronic sinusitis; Translations: [Chronic sinusitis, unspecified] Onset: 09-06-2023 09-06-2023 Chronic Other upper respiratory infections (4 sources) Acute upper respiratory infection; Translations: [Acute upper respiratory infection, unspecified] 05-18-2023 Episodic Poisoning by other medications and drugs (1 source) Poisoning by unspecified drugs, medicaments and biological substances, accidental (unintentional), initial encounter; Translations: [Poisoning by unspecified drug or medicinal substance] Episodic Residual codes; unclassified (20 sources) Sleep apnea; Translations: [Sleep apnea, unspecified] Onset: 03-31-2009 01-10-2018 Chronic Residual codes; unclassified (1 source) Obstructive sleep apnea syndrome; Translations: [Obstructive sleep apnea (adult) (pediatric)] 02-28-2024 Chronic Residual codes; unclassified (1 source) Hypersomnia; Translations: [Hypersomnia, unspecified] 02-28-2024 Chronic Residual codes; unclassified (3 sources) Bilateral lower limb edema; Translations: [Localized edema] 02-04-2024 Episodic Residual codes; unclassified (1 source) Cushingoid facies; Translations: [Other general symptoms and signs] 02-28-2024 Episodic Residual codes; unclassified (1 source) Insomnia, unspecified; Translations: [Frequent nocturnal awakening] Onset: 06-23-2024 Episodic Residual codes; unclassified (1 source) Frequent night waking; Translations: [Insomnia, unspecified] 06-23-2024 Episodic Schizophrenia and other psychotic disorders (20 sources) Chronic schizophrenia; Translations: [Schizophrenia, unspecified] Onset: 05-11-2005 Resolved: 04-23-2017 04-23-2017 Chronic Spondylosis; intervertebral disc disorders; other back problems (20 sources) Intervertebral disc disorder of lumbar region with myelopathy; Translations: [Intervertebral disc disorders with myelopathy, lumbar region] Onset: 09-22-2005 09-22-2005 Chronic Sprains and strains (2 sources) Strain of calf muscle; Translations: [Strain of other muscle(s) and tendon(s) at lower leg level, right leg, initial encounter] Episodic Superficial injury; contusion (1 source) Abrasion of left hand, initial encounter; Translations: [Abrasion or friction burn of hand(s) except finger(s) alone, without mention of infection] 04-09-2024 Episodic Syncope (1 source) Near syncope; Translations: [Syncope and collapse] 05-18-2023 Episodic Unclassified (1 source) OPENED IN ERROR Unclassified (1 source) Obesity, Class II, BMI 35-39.9; Translations: [Obesity, Class II, BMI 35-39.9] Onset: 01-31-2021 Past or Other Problems Problem Classification Problem Date Documented Date Episodic/Chronic Abdominal pain (20 sources) Abdominal pain; Translations: [Unspecified abdominal pain] Onset: 08-18-2022 Resolved: 06-06-2023 06-06-2023 Episodic Biliary tract disease (20 sources) Acute cholecystitis; Translations: [Acute cholecystitis] Onset: 06-06-2023 Resolved: 06-06-2023 06-06-2023 Episodic Chronic obstructive pulmonary disease and bronchiectasis (4 sources) Bronchitis; Translations: [Bronchitis, not specified as acute or chronic] Onset: 09-06-2023 06-09-2023 Episodic Fluid and electrolyte disorders (20 sources) Mild dehydration; Translations: [Dehydration] Onset: 04-04-2023 Resolved: 06-06-2023 06-06-2023 Episodic Nausea and vomiting (20 sources) Nausea; Translations: [Nausea] Onset: 03-06-2023 Resolved: 06-06-2023 Episodic Other aftercare (20 sources) Long-term current use of anticoagulant; Translations: [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] Onset: 02-15-2021 02-15-2021 Episodic Other aftercare (1 source) 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; Translations: [Chronic anticoagulation] Onset: 02-15-2021 Episodic Other aftercare (2 sources) 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 (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) use of insulin; Translations: [Type 2 diabetes mellitus with microalbuminuria, with long-term current use of insulin (HCC)] Onset: 08-18-2021 Episodic Other and unspecified benign neoplasm (20 sources) Tubular adenoma of colon; Translations: [Benign neoplasm of colon, unspecified] Onset: 06-02-2015 06-02-2015 Episodic Other and unspecified benign neoplasm (20 sources) History of polyp of colon; Translations: [Personal history of colonic polyps] Onset: 06-06-2023 06-06-2023 Episodic Other circulatory disease (20 sources) H/O: atrial fibrillation; Translations: [Personal history of other diseases of the circulatory system] Onset: 06-06-2023 Resolved: 06-06-2023 06-06-2023 Episodic Other diseases of veins and lymphatics (1 source) Venous insufficiency (chronic) (peripheral); Translations: [Venous incompetence] Onset: 02-28-2024 Episodic Other lower respiratory disease (20 sources) Restrictive lung disease; Translations: [Other disorders of lung] Onset: 06-06-2023 06-06-2023 Episodic Other lower respiratory disease (20 sources) Dyspnea; Translations: [Shortness of breath] Onset: 01-31-2021 Resolved: 05-06-2021 05-06-2021 Episodic Other lower respiratory disease (1 source) Shortness of breath; Translations: [SOB (shortness of breath)] Onset: 02-04-2024 Episodic Other non-traumatic joint disorders (1 source) Pain in right hip; Translations: [Acute hip pain, right] Onset: 07-23-2023 Episodic Other nutritional; endocrine; and metabolic disorders (20 sources) Cholesterol level - finding; Translations: [Lipoprotein deficiency] Onset: 06-09-2011 Resolved: 06-06-2023 06-09-2011 Chronic Other nutritional; endocrine; and metabolic disorders (20 sources) Morbid obesity; Translations: [Morbid (severe) obesity due to excess calories] Onset: 05-11-2005 Resolved: 06-06-2023 05-18-2023 Chronic Other nutritional; endocrine; and metabolic disorders (2 sources) Abnormal weight gain; Translations: [Weight gain] Onset: 02-04-2024 Episodic Other screening for suspected conditions (not mental disorders or infectious disease) (20 sources) Liver function tests abnormal; Translations: [Abnormal results of liver function studies] Onset: 03-31-2009 Resolved: 03-03-2022 04-02-2009 Episodic Pneumonia (except that caused by tuberculosis or sexually transmitted disease) (20 sources) Left lower zone pneumonia; Translations: [Pneumonia, unspecified organism] Onset: 06-06-2023 Resolved: 06-06-2023 06-06-2023 Episodic Residual codes; unclassified (1 source) Localized edema; Translations: [Bilateral leg edema] Onset: 02-04-2024 Episodic Respiratory failure; insufficiency; arrest (adult) (20 sources) Acute respiratory failure; Translations: [Acute respiratory failure, unspecified whether with hypoxia or hypercapnia] Onset: 06-06-2023 Resolved: 06-06-2023 06-06-2023 Episodic Spondylosis; intervertebral disc disorders; other back problems (20 sources) Sciatica; Translations: [Sciatica, unspecified side] Onset: 06-15-2005 Resolved: 05-06-2021 05-06-2021 Episodic Varicose veins of lower extremity (4 sources) Varicose vein of leg with phlebitis; Translations: [Varicose veins of right lower extremity with inflammation] Onset: 02-28-2024 02-28-2024 Episodic Results Test Name Value Interpretation Reference Range Facility CNOV 06-23-2024 CNOV Office Visit (SLEWST ) -------- FAISAL ALARCON ([id number]) 1945 M Date Time Provider Department 06/23/24 2:30 PM SUNNY DUVAL During your visit today, we recorded the following information about you: Pulse Respiration Blood pressure Weight 82/minute 18/minute 155/77 136 kg Sunny Duval APRN.CNP 06/23/2024 4:46 PM Signed [facility] New Patient Evaluation PATIENT NAME: Faisal Alarcon DATE OF SERVICE: June 22, 2024 CONSULTING PROVIDER: Osvaldo Travis [address] [facility] [address] REASON FOR CONSULT: Osvaldo Travis sends the patient for an opinion about CJ. My findings and recommendations will be transmitted electronically via shared medical record to the consulting provider. HPI: Faisal Alarcon is a 79 year old male. Accompanied by his daughter Loan. Sleep-related history: CJ, unclear if he has had a sleep study, never treated if he ever was officially diagnosed. He knew he didn't want CPAP. Per PCP note 06/20/24 he is tired. SLEEP-WAKE SCHEDULE Bedtime: 9 PM. He does not have a hard time falling asleep. Wake time: 9 AM After falling asleep: he wakes up 2 time(s) per night, because of the need to urinate. On weekends, he maintains the same sleep schedule. Average total sleep time (in a 24 hour period): 8 hours. SLEEP-RELATED DETAILS Preferred sleep position: side Breathing disturbances and other behaviors during sleep: snoring and stopping breathing during sleep and leg movements GERD or aspiration: No Waking up with heart pounding or racing: No Anxiety or rumination: No He does not report having an urge to move the legs in the evening (when resting) that is accompanied or caused by uncomfortable and/or unpleasant sensations in the legs. He has been told that he has leg kicking during sleep. He denies any history of parasomnias. Daytime sleepiness is not a problem. He does report sleep paralysis or sleep-related hallucinations WAKE-RELATED DETAILS He does not work. He does not have difficulty with memory or concentration. He denies falling asleep or dozing off when driving. He does take naps. Frequency: daily, Duration: 20 min to 2 hrs. Naps are refreshing. He does not drink caffeinated beverages. He has lost 10 pounds since 3 mos. Patient Questionnaires Sleep Scores 06/19/2024 PHQ-9 Score 5 06/19/2024 PROMIS Global Health - (T-Scores - the mean of general population = 50. Five points is a clinically meaningful difference.) Physical T-Score 26.7 26.7 Mental T-Score 45.8 45.8 Multiple values from one day are sorted in reverse-chronological order PAST TREATMENTS: None PRIOR SLEEP STUDIES: ? 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, Lumbar Region Sleep Apnea Blind One Eye Tubular Adenoma of Colon Schizophrenia, Chronic Condition (Hcc) Obesity, Class II, Bmi 35-39.9 Paroxysmal Atrial Fibrillation (Hcc) Chronic Anticoagulation History of Colonic Polyps Hyperlipidemia Nonobstructive Atherosclerosis of Coronary Artery Restrictive Lung Disease Right Bundle Branch Block (Rbbb) With Left Anterior Fascicular Block (Lafb) History of Bladder Cancer Benign Prostatic Hyperplasia Without Lower Urinary Tract Symptoms 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 Blood-Glucose Meter,Continuous (FREESTYLE JAMES 3 READER) [facility] Use to check blood sugar at least four (4) times daily. Uses insulin Blood-Glucose Sensor (FREESTYLE JAMES 3 PLUS SENSOR) sayra Apply new sensor every fifteen (15) days to upper arm. colestipol (COLESTID) 1 gram tablet Take 1 tablet (more content not included)... Normal [facility] Ema 06-23-2024 CAESARN Telephone (FAMPWS) -------- FAISAL ALARCON ([id number]) 1945 M Date Time Provider Department 06/23/24 JEFF VIRGEN During your visit today, we recorded the following information about you: Kennedi Frey LPN 06/23/2024 2:07 PM Signed ----- Message from Julianna Hood sent at 06/23/2024 1:51 PM EDT ----- Your vitamin D level is very low. Please consider [id number] vitamin D3-2000 units daily. Your white blood count is improving but now developing some mild anemia. Please recheck CBC in a month again. Kennedi Frey LPN 06/23/2024 2:08 PM Signed Attempted to reach pt by phone without success. Mailbox is full. Try later. DENISE Sams Kathryn, MA 06/24/2024 9:52 AM Signed Tried to reach pt, VM full, unable to leave message or call back number. [employer] message sent to pt, asking them to call back for results. JOSE ARMANDO Corrales M Robin, RN 06/24/2024 4:24 PM Signed Daughter returned call and given provider's message below with verbalized understanding. Daughter agreeable. Scheduled lab appt in 1 mth. Allergies As of Date: 06/23/2024 Noted Allergy Reaction AMOXICILLIN 05/11/2005 Comments: generalized erythema Date Reviewed: 06/23/2024 Reviewed by: Sunny Duval APRN.PECAN SHELLER - Fully Assessed Reason for Visit: Results [95] Prescriptions as of 06/24/2024 - ELIQUIS 5 mg tab(s) Take 1 tablet by mouth two times a day. - Blood-Glucose Meter,Continuous (FREESTYLE JAMES 3 READER) [facility] Use to check blood sugar at least four (4) times daily. Uses insulin - Blood-Glucose Sensor (FREESTYLE JAMES 3 PLUS SENSOR) sayra Apply new sensor every fifteen (15) days to upper arm. - colestipol (COLESTID) 1 gram tablet Take 1 tablet by mouth once daily. - losartan-hydroCHLOROthia zide (HYZAAR) 100-12.5 mg per tablet Take 1 tablet by mouth once daily. - carvedilol (COREG) 25 mg tablet Take 1 tablet by mouth two times a day. - albuterol HFA (VENTOLIN HFA) 90 mcg/actuation inhaler Inhale 2 Puffs as instructed every 4 hours as needed. - famotidine (PEPCID) 20 mg tablet Take 1 tablet by mouth two times a day. - insulin lispro (HUMALOG KWIKPEN INSULIN) 100 unit/mL Inject 20 Units subcutaneously three times a day before meals. Getting through [facility] - dilTIAZem CD (CARDIZEM CD, CARTIA XT) 120 mg 24 hr capsule Take 1 capsule by mouth once daily. - metFORMIN ER (GLUCOPHAGE XR) 500 mg 24 hr tablet Take 2 tablets by mouth two times a day before meals. - simvastatin (ZOCOR) 40 mg tablet Take 1 tablet by mouth daily at bedtime. - flecainide (TAMBOCOR) 150 mg tablet Take 1 tablet by mouth every 12 hours. Prescribed by outside fundraising specialist - insulin glargine (BASAGLAR KWIKPEN U-100 INSULIN) 100 unit/mL (3 mL) Inject 90 Units subcutaneously daily at bedtime. - finasteride (PROSCAR) 5 mg tablet - aspirin 81 mg chewable tablet Take 81 mg by mouth once daily. - insulin needles, DISPOSABLE, (1ST TIER UNIFINE PENTIPS) 31 gauge x 5/16 ndle 1 Each once daily. DX: E11.9 Insulin: Yes - Insulin Syringe-Needle U-100 1/2 mL 29 [...] of 08/20/2013: Problem List As Of Date 06/23/2024 Noted Resolved OTHER PSORIASIS [L40.8] 05/11/2005 Essential hypertension [I10] 05/11/2005 Morbid obesity (HCC) [E66.01] 05/11/2005 06/06/2023 Paranoid schizophrenia, subchronic condition wi*05/11/2005 04/23/2017 Type 2 diabetes mellitus with microalbuminuria *05/11/2005 Pure hypercholesterolemia [E78.00] 06/13/2005 06/06/2023 Sciatica [M54.30] 06/15/2005 05/06/2021 LUMB DISC DIS W MYELOPAT [M51.06] 09/22/2005 Sleep apnea [G47.30] 03/31/2009 Nonspecific abnormal results of liver function *03/31/2009 03/03/2022 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/24/2009 Low HDL (under 40) [E78.6] 06/09/2011 06/06/2023 Tubular adenoma of colon [D12.6] 06/02/2015 Schizophrenia, chronic condition (HCC) [F20.9] 04/23/2017 Obesity, Class II, BMI 35-39.9 [E66.812] 01/31/2021 SOB (shortness of breath) [R06.02] 01/31/2021 05/06/2021 Abnormal EKG [R94.31] 01/31/2021 05/06/2021 Paroxysmal atrial fibrillation (HCC) [I48.0] 02/15/2021 Chronic anticoagulation [Z79.01] 02/15/2021 Acute cholecystitis [K81.0] 06/06/2023 06/06/2023 Diagnosed: 06/06/2023 Acute respiratory failure (HCC) [J96.00] 06/06/2023 06/06/2023 Diagnosed: 06/06/2023 History of atrial fibrillation [Z86.79] 06/06/2023 06/06/2023 Diagnosed: 06/06/2023 History of colonic polyps [Z86.0100] 06/06/2023 Diagnosed: 06/06/2023 Hyperlipidemia [E78.5] 06/06/2023 Diagnosed: 06/06/2023 Left lower lobe pneumonia [J18.9] 09 (more content not included)... Normal [facility] 25-hydroxyvitamin D3 [Mass/Vol] 15.7 ng/mL Low 31.0-80.0 [facility] Comment on above: Order Comment: Speci men Type: BLOOD SPECIMENOrdering Facility: [facility] Address: [address] [place] [address] Result Comment: Clas sification of 25 OH Vitamin D status: Deficiency/Insufficiency: < or = 30 ng/ml. Sufficiency/Optimal Levels: 31-80 ng/mL Toxicity: > 100 ng/mL. Test performed by chemiluminescent immunoassay. Performed By: #### 1 989-3 ####[facility] LABCLIA [id number] [place] [address] [place] CBC W Auto Differential pane l (Bld)on 06-20-2024 Basophils (Bld) [#/Vol] 0.06 10*3/uL Normal <0.11 [facility] Comment on above: Order Comment: Speci men Type: BLOOD SPECIMENOrdering Facility: [facility] Address: [address] [place] [address] Performed By: #### 5 7021-8 ####[facility] LABCLIA [id number] [place] [address] [place] Basophils/100 WBC (Bld) 0.5 % Normal [facility] Comment on above: Order Comment: Speci men Type: BLOOD SPECIMENOrdering Facility: [facility] Address: [address] [place] [address] Performed By: #### 5 7021-8 ####[facility] LABIA [id number] [place] [address] [place] Differential cell count method Nom (Bld) Auto Normal [facility] Comment on above: Order Comment: Speci men Type: BLOOD SPECIMENOrdering Facility: [facility] Address: [address] [place] [address] Performed By: #### 5 7021-8 ####[facility] LABIA [id number] [place] [address] [place] Eosinophils (Bld) [#/Vol] 0.41 10*3/uL Normal <0.46 [facility] Comment on above: Order Comment: Speci men Type: BLOOD SPECIMENOrdering Facility: [facility] Address: [address] [place] [address] Performed By: #### 5 7021-8 ####[facility] LABCLIA [id number] [place] [address] [place] Eosinophils/100 WBC (Bld) 3.5 % Normal [facility] Comment on above: Order Comment: Speci men Type: BLOOD SPECIMENOrdering Facility: [facility] Address: [address] [place] [address] Performed By: #### 5 7021-8 ####[facility] LABIA [id number] [place] [address] [place] Erythrocyte distribution width (RBC) [Ratio] 13.7 % Normal 11.5-15.0 [facility] Comment on above: Order Comment: Speci men Type: BLOOD SPECIMENOrdering Facility: [facility] Address: [address] [place] [address] Performed By: #### 5 7021-8 ####[facility] LABIA [id number] [place] [address] [place] Hematocrit (Bld) [Volume fraction] 38.9 % Low 39.0-51.0 [facility] Comment on above: Order Comment: Speci men Type: BLOOD SPECIMENOrdering Facility: [facility] Address: [address] [place] [address] Performed By: #### 5 7021-8 ####[facility] LABIA [id number] [place] [address] [place] Hemoglobin (Bld) [Mass/Vol] 12.4 g/dL Low 13.0-17.0 [facility] Comment on above: Order Comment: Speci men Type: BLOOD SPECIMENOrdering Facility: [facility] Address: [address] [place] [address] Performed By: #### 5 7021-8 ####[facility] LABIA [id number] [place] [id number] [place] Immature granulocytes (Bld) [#/Vol] 0.05 10*3/uL Normal <0.10 [facility] Comment on above: Order Comment: Speci men Type: BLOOD SPECIMENOrdering Facility: [facility] Address: [address] [place] [address] Performed By: #### 5 7021-8 ####[facility] LABCLIA [id number] [place] [address] [place] Immature granulocytes/100 WBC (Bld) 0.4 % Normal [facility] Comment on above: Order Comment: Speci men Type: BLOOD SPECIMENOrdering Facility: [facility] Address: [address] [place] [address] Performed By: #### 5 7021-8 ####[facility] LABCLIA [id number] [place] [address] [place] Lymphocytes (Bld) [#/Vol] 1.53 10*3/uL Normal 1.00-4.00 [facility] Comment on above: Order Comment: Speci men Type: BLOOD SPECIMENOrdering Facility: [facility] Address: [address] [place] [address] Performed By: #### 5 7021-8 ####[facility] LABCLIA [id number] [place] [address] [place] Lymphocytes/100 WBC (Bld) 13.0 % Normal [facility] Comment on above: Order Comment: Speci men Type: BLOOD SPECIMENOrdering Facility: [facility] Address: [address] [place] [address] Performed By: #### 5 7021-8 ####[facility] LABCLIA [id number] [place] [address] [place] MCH (RBC) [Entitic mass] 27.7 pg Normal 26.0-34.0 [facility] Comment on above: Order Comment: Speci men Type: BLOOD SPECIMENOrdering Facility: [facility] Address: [address] [place] [address] Performed By: #### 5 7021-8 ####[facility] LABCLIA [id number] [place] [address] [place] MCHC (RBC) [Mass/Vol] 31.9 g/dL Normal 30.5-36.0 [facility] Comment on above: Order Comment: Speci men Type: BLOOD SPECIMENOrdering Facility: [facility] Address: [address] [place] [address] Performed By: #### 5 7021-8 ####[facility] LABIA [id number] [place] [address] [place] MCV (RBC) [Entitic vol] 86.8 fL Normal 80.0-100.0 [facility] Comment on above: Order Comment: Speci men Type: BLOOD SPECIMENOrdering Facility: [facility] Address: [address] [place] [address] Performed By: #### 5 7021-8 ####[facility] LABCLIA [id number] [place] [address] [place] Monocytes (Bld) [#/Vol] 1.41 10*3/uL High <0.87 [facility] Comment on above: Order Comment: Speci men Type: BLOOD SPECIMENOrdering Facility[facility] Address: [address] [place] [address] Performed By: #### 5 7021-8 ####[facility] LABCLIA [id number] [place] [address] [place] Monocytes/100 WBC (Bld) 12.0 % Normal [facility] Comment on above: Order Comment: Speci men Type: BLOOD SPECIMENOrdering Facility: [facility] Address: [address] [place] [address] Performed By: #### 5 7021-8 ####[facility] LABCLIA [id number] [place] [address] [place] Neutrophils (Bld) [#/Vol] 8.29 10*3/uL High 1.45-7.50 [facility] Comment on above: Order Comment: Speci men Type: BLOOD SPECIMENOrdering Facility: [facility] Address: [address] [place] [address] Performed By: #### 5 7021-8 ####[facility] LABCLIA [id number] [place] [address] [place] Neutrophils/100 WBC (Bld) 70.6 % Normal [facility] Comment on above: Order Comment: Speci men Type: BLOOD SPECIMENOrdering Facility: [facility] Address: [address] [place] [address] Performed By: #### 5 7021-8 ####[facility] LABCLIA [id number] [place] [address] [place] Nucleated RBC (Bld) [#/Vol] 10*3/uL Normal <0.01 [facility] Comment on above: Order Comment: Speci men Type: BLOOD SPECIMENOrdering Facility: [facility] Address: [address] [place] [address] Performed By: #### 5 7021-8 ####[facility] LABCLIA [id number] [place] [address] [place] Nucleated RBC/100 WBC (Bld) [Ratio] 0.0 /100 WBC Normal [facility] Comment on above: Order Comment: Speci men Type: BLOOD SPECIMENOrdering Facility: [facility] Address: [address] [place] [address] Performed By: #### 5 7021-8 ####[facility] LABCLIA [id number] [place] [address] [place] Platelet mean volume (Bld) [Entitic vol] 11.1 fL Normal 9.0-12.7 [facility] Comment on above: Order Comment: Speci men Type: BLOOD SPECIMENOrdering Facility: [facility] Address: [address] [place] [address] Performed By: #### 5 7021-8 ####[facility] LABIA [id number] [place] [address] [place] Platelets (Bld) [#/Vol] 294 10*3/uL Normal 150-400 [facility] Comment on above: Order Comment: Speci men Type: BLOOD SPECIMENOrdering Facility: [facility] Address: [address] [place] [address] Performed By: #### 5 7021-8 ####[facility] LABIA [id number] [place] [address] [place] RBC (Bld) [#/Vol] 4.48 10*6/uL Normal 4.20-6.00 [facility] Comment on above: Order Comment: Speci men Type: BLOOD SPECIMENOrdering Facility: [facility] Address: [address] [place] [address] Performed By: #### 5 7021-8 ####[facility] [id number] [place] [address] [place] WBC (Bld) [#/Vol] 11.75 10*3/uL High 3.70-11.00 [facility] Comment on above: Order Comment: Speci men Type: BLOOD SPECIMENOrdering Facility: [facility] Address: [address] [place] [address] Performed By: #### 5 7021-8 ####[facility] LABIA [id number] [place] [address] [place] CK SerPl-cCncon 06-20-2024 CK [Catalytic activity/Vol] 164 U/L Normal 51-298 [facility] Comment on above: Order Comment: Speci men Type: BLOOD SPECIMENOrdering Facility: [facility] Address: [address] [place] [address] Performed By: #### 3 016-3, 2157-6 ####[facility] RADHA [id number] [id number] [id number] [facility] [place] CNOVon 06-20-2024 CNOV Office Visit (FAMPWS ) -------- FAISAL ALARCON ([id number]) 1945 M Date Time Provider Department 06/20/24 3:40 PM [facility] During your visit today, we recorded the following information about you: Pulse Blood pressure Weight Height 80/minute 132/56 136.7 kg 1.854 m Jeff Virgen MD 06/20/2024 5:18 PM Signed Patient presents with: Diabetes HPI: Patient presents today for office visit for follow up on sugars. DM: Currently on Humalog 26 units with every meal Basaglar 90 units qhs Metformin 500 mg (2 tabs) BI A1c 7.4 Checking his sugars at least 4 x a day Admits to not watching his diet Denies any unexpected weight loss No hypoglycemic spells No vision concerns. Saw eye doctor today. No wounds on his feet. Denies any numbness or pain in feet. Had transurethral resection of a bladder tumor by Dr Daley. He is having issues with bladder control. They are waiting to hear back yet on next steps. Heart is doing doing well. Seeing cardiology. No new shortness of breath. No new chest pain No new palpitations. Work up in er recently for short lived discomfort was negative. Family had him stop the spironolactone. They are waiting to hear back from Dr Ponce. Discussed daily weights and reasons for recheck. No worsening swelling. Wants to have vit d tested. Is very tired. Does not treat his sleep apnea. Sees sleep medicine on Sunday. Free style james script needs sent through [employer] He is wanting us to send his scooter request to [employer]. They had requested a letter in the past for one but did not perform a face to face eval. Latest Ref Rng 06/11/2024 Protein, Total 6.3 - 8.0 g/dL 7.4 Albumin 3.9 - 4.9 g/dL 3.9 Calcium 8.5 - 10.2 mg/dL 9.8 Bilirubin, Total 0.2 - 1.3 mg/dL <0.2 (L) Alkaline Phosphatase 38 - 113 U/L 81 AST 14 - 40 U/L 26 ALT 10 - 54 U/L 23 Glucose 74 - 99 mg/dL 169 (H) BUN 9 - 24 mg/dL 28 (H) Creatinine 0.73 - 1.22 mg/dL 1.19 Sodium 136 - 144 mmol/L 133 (L) Potassium 3.7 - 5.1 mmol/L 4.8 Chloride 98 - 107 mmol/L 98 CO2 22 - 30 mmol/L 20 (L) Anion Gap 8 - 15 mmol/L 15 eGFR >=60 mL/min/1.73m? 62 Hemoglobin A1C 4.3 - 5.6 % 7.4 (H) Estimated Average Glucose mg/dL 166 MEDICATIONS: Current Outpatient Medications Medication Sig ELIQUIS 5 mg tab(s) Take 1 tablet by mouth two times a day. colestipol (COLESTID) 1 gram tablet Take 1 tablet by mouth once daily. losartan-hydroCHLOROthia zide (HYZAAR) 100-12.5 mg per tablet Take 1 tablet by mouth once daily. spironolactone (ALDACTONE) 25 mg tablet Take 1 tablet by mouth once daily. carvedilol (COREG) 25 mg tablet Take 1 tablet by mouth two times a day. albuterol HFA (VENTOLIN HFA) 90 mcg/actuation inhaler Inhale 2 Puffs as instructed every 4 hours as needed. famotidine (PEPCID) 20 mg tablet Take 1 tablet by mouth two times a day. insulin lispro (HUMALOG KWIKPEN INSULIN) 100 unit/mL Inject 20 Units subcutaneously three times a day before meals. Getting through [facility] dilTIAZem CD (CARDIZEM CD, CARTIA XT) 120 mg 24 hr capsule Take 1 capsule by mouth once daily. metFORMIN ER (GLUCOPHAGE XR) 500 mg 24 hr tablet Take 2 tablets by mouth two times a day before meals. simvastatin (ZOCOR) 40 mg tablet Take 1 tablet by mouth daily at bedtime. insulin glargine (BASAGLAR KWIKPEN U-100 INSULIN) 100 unit/mL (3 mL) Inject 90 Units subcutaneously daily at bedtime. finasteride (PROSCAR) 5 mg [...] twice daily. Accucheck compact test strips, dx-NIDDM flecainide (TAMBOCOR) 150 mg tablet Take 1 tablet by mouth every 12 hours. Prescribed by outside fundraising specialist No current facility-administered medications for this visit. [...] COLSC FLX W/REMOVAL LESION BY HOT BX FOR (more content not included)... Normal [facility] TSH SerPl-aCncon 06-20-2024 TSH Qn 1.840 m[IU]/L Normal 0.270-4.200 [facility] Comment on above: Order Comment: Speci men Type: BLOOD SPECIMENOrdering Facility: [facility] Address: [address] [place] [id number] Performed By: #### 3 016-3, 2157-6 ####[facility] LABNATALIIA [id number] [id number] [id number] [place] Ema 06-18-2024 [facility] -------- FAISAL ALARCON ([id number]) 1945 M Date Time Provider Department 06/18/24 JEFF VIRGEN [facility] During your visit today, we recorded the following information about you: Angelina Bliss RN 06/18/2024 4:31 PM Signed Patient's daughter Loan Brooks calling and requesting to speak specifically with PCP nurse, Anthony. This is in regard to patient's scooter and pt's insurance. Loan [phone]. Thank you. Anthony Henley LPN 06/20/2024 11:24 AM Signed Patient has visit today. Clinical staff can follow up with daughter at visit. Anthony Henley LPN 06/25/2024 3:34 PM Signed As of today order for scooter and last OV was faxed to [employer]. Allergies As of Date: 06/18/2024 Noted Allergy Reaction AMOXICILLIN 05/11/2005 Comments: generalized erythema Date Reviewed: 04/12/2024 Reviewed by: Izzy Vargas, NILDA - Fully Assessed Reason for Visit: Patient Question [1427] Prescriptions as of 06/25/2024 - ELIQUIS 5 mg tab(s) Take 1 tablet by mouth two times a day. - Blood-Glucose Meter,Continuous (FREESTYLE JAMES 3 READER) [facility] Use to check blood sugar at least four (4) times daily. Uses insulin - Blood-Glucose Sensor (FREESTYLE JAMES 3 PLUS SENSOR) [facility] Apply new sensor every fifteen (15) days to upper arm. - colestipol (COLESTID) 1 gram tablet Take 1 tablet by mouth once daily. - losartan-hydroCHLOROthia zide (HYZAAR) 100-12.5 mg per tablet Take 1 tablet by mouth once daily. - carvedilol (COREG) 25 mg tablet Take 1 tablet by mouth two times a day. - albuterol HFA (VENTOLIN HFA) 90 mcg/actuation inhaler Inhale 2 Puffs as instructed every 4 hours as needed. - famotidine (PEPCID) 20 mg tablet Take 1 tablet by mouth two times a day. - insulin lispro (HUMALOG KWIKPEN INSULIN) 100 unit/mL Inject 20 Units subcutaneously three times a day before meals. Getting through [facility] - dilTIAZem CD (CARDIZEM CD, CARTIA XT) 120 mg 24 hr capsule Take 1 capsule by mouth once daily. - metFORMIN ER (GLUCOPHAGE XR) 500 mg 24 hr tablet Take 2 tablets by mouth two times a day before meals. - simvastatin (ZOCOR) 40 mg tablet Take 1 tablet by mouth daily at bedtime. - flecainide (TAMBOCOR) 150 mg tablet Take 1 tablet by mouth every 12 hours. Prescribed by outside fundraising specialist - insulin glargine (BASAGLAR KWIKPEN U-100 INSULIN) 100 unit/mL (3 mL) Inject 90 Units subcutaneously daily at bedtime. - finasteride (PROSCAR) 5 mg tablet - aspirin 81 mg chewable tablet Take 81 mg by mouth once daily. - insulin needles, DISPOSABLE, (1ST TIER UNIFINE PENTIPS) 31 gauge x 5/16 ndle 1 Each once daily. DX: E11.9 Insulin: Yes - Insulin Syringe-Needle U-100 1/2 mL 29 [...] of 08/20/2013: Problem List As Of Date 06/18/2024 Noted Resolved OTHER PSORIASIS [L40.8] 05/11/2005 Essential hypertension [I10] 05/11/2005 Morbid obesity (HCC) [E66.01] 05/11/2005 06/06/2023 Paranoid schizophrenia, subchronic condition wi*05/11/2005 04/23/2017 Type 2 diabetes mellitus with microalbuminuria *05/11/2005 Pure hypercholesterolemia [E78.00] 06/13/2005 06/06/2023 Sciatica [M54.30] 06/15/2005 05/06/2021 LUMB DISC DIS W MYELOPAT [M51.06] 09/22/2005 Sleep apnea [G47.30] 03/31/2009 Nonspecific abnormal results of liver function *03/31/2009 03/03/2022 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/24/2009 Low HDL (under 40) [E78.6] 06/09/2011 06/06/2023 Tubular adenoma of colon [D12.6] 06/02/2015 Schizophrenia, chronic condition (HCC) [F20.9] 04/23/2017 Obesity, Class II, BMI 35-39.9 [E66.812] 01/31/2021 SOB (shortness of breath) [R06.02] 01/31/2021 05/06/2021 Abnormal EKG [R94.31] 01/31/2021 05/06/2021 Paroxysmal atrial fibrillation (HCC) [I48.0] 02/15/2021 Chronic anticoagulation [Z79.01] 02/15/2021 Acute cholecystitis [K81.0] 06/06/2023 06/06/2023 Diagnosed: 06/06/2023 Acute respiratory failure (HCC) [J96.00] 06/06/2023 06/06/2023 Diagnosed: 06/06/2023 History of atrial fibrillation [Z86.79] 06/06/2023 06/06/2023 Diagnosed: 06/06/2023 History of colonic polyps [Z86.0100] 06/06/2023 Diagnosed: 06/06/2023 Hyperlipidemia [E78.5] 06/06/2023 Diagnosed: 06/06/2023 Left lower lobe pneumonia [J18.9] 06/06/2023 06/06/2023 Diagnosed: 06/06/2023 Mild dehydration [E86.0] 04/04/2023 06/06/2023 Diagnosed: 06/06/2023 Nausea [R11.0] 03/06/2023 06/06/2023 Diagnosed: 06/06/2023 Nonobstructive atherosclerosis of coronary luis*06/06/2023 Diagnosed: 06/06/2023 Abdominal pain [R10.9] 08/18/2022 06/06/2023 Diagnosed: 06/06/2023 Restrictive lung disease [J98.4] 06/06/2023 Diagnosed: 06/06/20 (more content not included)... Normal [facility] CNPNon 06-17-2024 [facility] Telephone ([facility]) -------- FAISAL ALARCON ([id number]) 1945 Date Time Provider Department 06/17/24 JEFF VIRGEN [facility] During your visit today, we recorded the following information about you: Kennedi Frey LPN 06/17/2024 10:15 AM Signed Received a call from Alison with [facility]. PH: [phone]. She reports receiving information on a scooter. Alison reports this has to go thru pt's [employer] company and they will fax all information with details to [facility] to be done. I called daughter Loan and she reports they are using [employer] fax:[phone] PH: [phone] Spoke with [employer] and after they received the fax they will go thru it and send forms to be filled out and once those have been returned they will send to [facility] . Information fas been faxed. Kennedi Frey LPN Allergies As of Date: 06/17/2024 Noted Allergy Reaction AMOXICILLIN 05/11/2005 Comments: generalized erythema Date Reviewed: 04/12/2024 Reviewed by: Izzy Vargas, NILDA - Fully Assessed Prescriptions as of 06/17/2024 - colestipol (COLESTID) 1 gram tablet Take 1 tablet by mouth once daily. - losartan-hydroCHLOROthia zide (HYZAAR) 100-12.5 mg per tablet Take 1 tablet by mouth once daily. - spironolactone (ALDACTONE) 25 mg tablet Take 1 tablet by mouth once daily. - carvedilol (COREG) 25 mg tablet Take 1 tablet by mouth two times a day. - ELIQUIS 5 mg tab(s) take 1 tablet by mouth twice a day - furosemide (LASIX) 40 mg tablet Take 1 tablet by mouth once daily. - furosemide (LASIX) 40 mg tablet Take 1 tablet by mouth once daily. - blood sugar diagnostic (BLOOD GLUCOSE TEST) test strip Test blood sugar(s) two times daily. Dx: Type 2 DM - Controlled E11.9 Insulin: Yes - albuterol HFA (VENTOLIN HFA) 90 mcg/actuation inhaler Inhale 2 Puffs as instructed every 4 hours as needed. - famotidine (PEPCID) 20 mg tablet Take 1 tablet by mouth two times a day. - diclofenac (VOLTAREN ARTHRITIS PAIN) 1 % topical gel Apply 2 g to affected area four times daily. - insulin lispro (HUMALOG KWIKPEN INSULIN) 100 unit/mL Inject 20 Units subcutaneously three times a day before meals. [facility] - dilTIAZem CD (CARDIZEM CD, CARTIA XT) 120 mg 24 hr capsule Take 1 capsule by mouth once daily. - metFORMIN ER (GLUCOPHAGE XR) 500 mg 24 hr tablet Take 2 tablets by mouth two times a day before meals. - simvastatin (ZOCOR) 40 mg tablet Take 1 tablet by mouth daily at bedtime. - flecainide (TAMBOCOR) 150 mg tablet Take 1 tablet by mouth every 12 hours. Prescribed by outside fundraising specialist - insulin glargine (BASAGLAR KWIKPEN U-100 INSULIN) 100 unit/mL (3 mL) Inject 90 Units subcutaneously daily at bedtime. - finasteride (PROSCAR) 5 mg tablet - aspirin 81 mg chewable tablet Take 81 mg by mouth once daily. - insulin needles, DISPOSABLE, (1ST TIER UNIFINE PENTIPS) 31 gauge x 5/16 ndle 1 Each once daily. DX: E11.9 Insulin: Yes - Insulin Syringe-Needle U-100 1/2 mL 29 [...] of 08/20/2013: Problem List As Of Date 06/17/2024 Noted Resolved OTHER PSORIASIS [L40.8] 05/11/2005 Essential hypertension [I10] 05/11/2005 Morbid obesity (HCC) [E66.01] 05/11/2005 06/06/2023 Paranoid schizophrenia, subchronic condition wi*05/11/2005 04/23/2017 Type 2 diabetes mellitus with microalbuminuria *05/11/2005 Pure hypercholesterolemia [E78.00] 06/13/2005 06/06/2023 Sciatica [M54.30] 06/15/2005 05/06/2021 LUMB DISC DIS W MYELOPAT [M51.06] 09/22/2005 Sleep apnea [G47.30] 03/31/2009 Nonspecific abnormal results of liver function *03/31/2009 03/03/2022 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/24/2009 Low HDL (under 40) [E78.6] 06/09/2011 06/06/2023 Tubular adenoma of colon [D12.6] 06/02/2015 Schizophrenia, chronic condition (HCC) [F20.9] 04/23/2017 Obesity, Class II, BMI 35-39.9 [E66.812] 01/31/2021 SOB (shortness of breath) [R06.02] 01/31/2021 05/06/2021 Abnormal EKG [R94.31] 01/31/2021 05/06/2021 Paroxysmal atrial fibrillation (HCC) [I48.0] 02/15/2021 Chronic anticoagulation [Z79.01] 02/15/2021 Acute cholecystitis [K81.0] 06/06/2023 06/06/2023 Diagnosed: 06/06/2023 Acute respiratory failure (HCC) [J96.00] 06/06/2023 06/06/2023 Diagnosed: 06/06/2023 History of atrial fibrillation [Z86.79] 06/06/2023 06/06/2023 Diagnosed: 06/06/2023 History of colonic polyps [Z86.0100] 06/06/2023 Diagnosed: 06/06/2023 Hyperlipidemia [E78.5] 06/06/2023 Diagnosed: 06/06/2023 Left lower lobe pneumonia [J18.9] 06/06/2023 06/06/2023 Diagnosed: 06/06/2023 Mild dehydration [E (more content not included)... Normal [facility] Comprehensive metabolic 2000 panelon 06-11-2024 Albumin [Mass/Vol] 3.9 g/dL Normal 3.9-4.9 [facility] Comment on above: Order Comment: Speci men Type: BLOOD SPECIMENOrdering Facility: [facility] Address: [address] [place] [address] Performed By: #### 2 4323-8 ####[facility] LABCLIA [id number] [place] [address] [place] ALP [Catalytic activity/Vol] 81 U/L Normal 38-113 [facility] Comment on above: Order Comment: Speci men Type: BLOOD SPECIMENOrdering Facility: [facility] Address: [address] [place] [address] Performed By: #### 2 4323-8 ####[facility] LABCLIA [id number] [place] [address] [place] ALT [Catalytic activity/Vol] 23 U/L Normal 10-54 [facility] Comment on above: Order Comment: Speci men Type: BLOOD SPECIMENOrdering Facility: [facility] Address: [address] [place] [address] Performed By: #### 2 4323-8 ####[facility] LABCLIA [id number] [place] [address] [place] Anion gap [Moles/Vol] 15 mmol/L Normal 8-15 [facility] Comment on above: Order Comment: Speci men Type: BLOOD SPECIMENOrdering Facility: [facility] Address: [address] [place] [address] Performed By: #### 2 4323-8 ####[facility] LABCLIA [id number] [place] [address] [place] AST [Catalytic activity/Vol] 26 U/L Normal 14-40 [facility] Comment on above: Order Comment: Speci men Type: BLOOD SPECIMENOrdering Facility: [facility] Address: [address] [place] [address] Performed By: #### 2 4323-8 ####[facility] LABCLIA [id number] [place] [address] [place] Bilirubin [Mass/Vol] mg/dL Low 0.2-1.3 [facility] Comment on above: Order Comment: Speci men Type: BLOOD SPECIMENOrdering Facility: [facility] Address: [address] [place] [address] Performed By: #### 2 4323-8 ####[facility] LABCLIA [id number] [place] [address] [place] Calcium [Mass/Vol] 9.8 mg/dL Normal 8.5-10.2 [facility] Comment on above: Order Comment: Speci men Type: BLOOD SPECIMENOrdering Facility: [facility] Address: [address] [place] [address] Performed By: #### 2 4323-8 ####[facility] LABCLIA [id number] [place] [address] [place] Chloride [Moles/Vol] 98 mmol/L Normal 98-107 [facility] Comment on above: Order Comment: Speci men Type: BLOOD SPECIMENOrdering Facility: [facility] Address: [address] [place] [address] Performed By: #### 2 4323-8 ####[facility] LABCLIA [id number] [place] [address] [place] CO2 [Moles/Vol] 20 mmol/L Low 22-30 [facility] Comment on above: Order Comment: Speci men Type: BLOOD SPECIMENOrdering Facility: [facility] Address: [address] [place] [address] Performed By: #### 2 4323-8 ####[facility] LABCLIA [id number] [place] [address] [place] Creatinine [Mass/Vol] 1.19 mg/dL Normal 0.73-1.22 [facility] Comment on above: Order Comment: Speci men Type: BLOOD SPECIMENOrdering Facility: [facility] Address: [address] [place] [address] Performed By: #### 2 4323-8 ####[facility] LABIA [id number] [place] [address] [place] Creatinine and Glomerular filtration rate.predicted panel (S/P/Bld) 62 mL/min/1.73m??? Normal >=60 [facility] Comment on above: Order Comment: Speci men Type: BLOOD SPECIMENOrdering Facility: [facility] Address: [address] [place] [address] Result Comment: Racquel mated Glomerular Filtration Rate (eGFR) is calculated using the 2020 CKD-EPI creatinine equation. This equation utilizes serum creatinine, sex, and age as parameters. The creatinine assay has traceable calibration to isotope dilution-mass spectrometry. Refer to KDIGO guidelines for clinical interpretation. In patients with unstable renal function, e.g. those with acute kidney injury, the eGFR may not accurately reflect actual GFR. Performed By: #### 2 4323-8 ####[facility] LABCLIA [id number] [place] [address] [place] Glucose [Mass/Vol] 169 mg/dL High 74-99 [facility] Comment on above: Order Comment: Speci men Type: BLOOD SPECIMENOrdering Facility: [facility] Address: [address] [place] [address] Result Comment: The [place] [employer] (ADA) provides guidance for cutoff values for fasting glucose and random glucose. The ADA defines fasting as no caloric intake for at least 8 hours. Fasting plasma glucose results between 100 to 125 mg/dL indicate increased risk for diabetes (prediabetes). Fasting plasma glucose results greater than or equal to 126 mg/dL meet the criteria for diagnosis of diabetes. In the absence of unequivocal hyperglycemia, results should be confirmed by repeat testing. In a patient with classic symptoms of hyperglycemia or hyperglycemic crisis, random plasma glucose results greater than or equal to 200 mg/dL meet the criteria for diagnosis of diabetes. Reference: Standards of Medical Care in Diabetes 2016, [place] [employer]. Diabetes Care. 2016.39(Suppl 1). Performed By: #### 2 4323-8 ####[facility] LABCLIA [id number] [place] [address] [place] Potassium [Moles/Vol] 4.8 mmol/L Normal 3.7-5.1 [facility] Comment on above: Order Comment: Speci men Type: BLOOD SPECIMENOrdering Facility: [facility] Address: [address] [place] [address] Performed By: #### 2 4323-8 ####[facility] LABCLIA [id number] [place] [address] [place] Protein [Mass/Vol] 7.4 g/dL Normal 6.3-8.0 [facility] Comment on above: Order Comment: Speci men Type: BLOOD SPECIMENOrdering Facility: [facility] Address: [address] [place] [address] Performed By: #### 2 4323-8 ####[facility] LABCLIA [id number] [place] [address] [place] Sodium [Moles/Vol] 133 mmol/L Low 136-144 [facility] Comment on above: Order Comment: Speci men Type: BLOOD SPECIMENOrdering Facility: [facility] Address: [address] [place] [address] Performed By: #### 2 4323-8 ####[facility] LABCLIA [id number] [place] [address] [place] Urea nitrogen [Mass/Vol] 28 mg/dL High 9-24 [facility] Comment on above: Order Comment: Speci men Type: BLOOD SPECIMENOrdering Facility: [facility] Address: [address] [place] [address] Performed By: #### 2 4323-8 ####[facility] LABCLIA [id number] [place] [address] [place] HbA1c (Bld)on 06-11-2024 Average glucose Estimated from glycated hemoglobin (Bld) [Mass/Vol] 166 mg/dL Normal [facility] Comment on above: Order Comment: Speci men Type: BLOOD SPECIMENOrdering Facility: [facility] Address: [address] [place] [address] Result Comment: eAG: (Estimated average glucose) is a calculated value from HgbA1c and is car sales representative of the average blood glucose level in the last 2-3 month period. Performed By: #### 5 5454-3 ####[facility] LABCLIA [id number] [place] [address] [place] HbA1c (Bld) [Mass fraction] 7.4 % High 4.3-5.6 [facility] Comment on above: Order Comment: Speci men Type: BLOOD SPECIMENOrdering Facility: [facility] Address: [address] [place] [address] Result Comment: Amer ican Diabetes Association guidelines indicate that patients with HgbA1c in the range 5.7-6.4% are at increased risk for development of diabetes, and intervention by lifestyle modification may be beneficial. HgbA1c greater or equal to 6.5% is considered diagnostic of diabetes. Performed By: #### 5 5454-3 ####[facility] LABCLIA [id number] [place] [address] [place] CNOVon 05-31-2024 CNOV Office Visit (UCWSTR ) -------- FAISAL ALARCON ([id number]) 1945 Date Time Provider Department 05/31/24 9:00 AM AMAIRANI MCCLENDON [facility] During your visit today, we recorded the following information about you: Amairani Mcclendon APRN.PECAN SHELLER 05/31/2024 8:58 AM Signed Patient came in with complaints of lightheadedness dizziness and weakness. Patient says he feels like he collapsed. Patient does have significant cardiac history including A-fib. At this time patient is being referred to the ER for full evaluation. Patient was okay with this care plan. Patient's caregiver will take him now. Allergies As of Date: 05/31/2024 Noted Allergy Reaction AMOXICILLIN 05/11/2005 Comments: generalized erythema Date Reviewed: 04/12/2024 Reviewed by: Izzy Vargas, NILDA - Fully Assessed Primary Visit Diagnosis:Generalized weakness [R53.1] Prescriptions as of 05/31/2024 - losartan-hydroCHLOROthia zide (HYZAAR) 100-12.5 mg per tablet Take 1 tablet by mouth once daily. - spironolactone (ALDACTONE) 25 mg tablet Take 1 tablet by mouth once daily. - carvedilol (COREG) 25 mg tablet Take 1 tablet by mouth two times a day. - ELIQUIS 5 mg tab(s) take 1 tablet by mouth twice a day - furosemide (LASIX) 40 mg tablet Take 1 tablet by mouth once daily. - furosemide (LASIX) 40 mg tablet Take 1 tablet by mouth once daily. - blood sugar diagnostic (BLOOD GLUCOSE TEST) test strip Test blood sugar(s) two times daily. Dx: Type 2 DM - Controlled E11.9 Insulin: Yes - albuterol HFA (VENTOLIN HFA) 90 mcg/actuation inhaler Inhale 2 Puffs as instructed every 4 hours as needed. - famotidine (PEPCID) 20 mg tablet Take 1 tablet by mouth two times a day. - diclofenac (VOLTAREN ARTHRITIS PAIN) 1 % topical gel Apply 2 g to affected area four times daily. - insulin lispro (HUMALOG KWIKPEN INSULIN) 100 unit/mL Inject 20 Units subcutaneously three times a day before meals. [facility] dilTIAZem CD (CARDIZEM CD, CARTIA XT) 120 mg 24 hr capsule Take 1 capsule by mouth once daily. - metFORMIN ER (GLUCOPHAGE XR) 500 mg 24 hr tablet Take 2 tablets by mouth two times a day before meals. - simvastatin (ZOCOR) 40 mg tablet Take 1 tablet by mouth daily at bedtime. - flecainide (TAMBOCOR) 150 mg tablet Take 1 tablet by mouth every 12 hours. Prescribed by outside fundraising specialist - colestipol (COLESTID) 1 gram tablet Take 1 tablet by mouth once daily. - insulin glargine (BASAGLAR KWIKPEN U-100 INSULIN) 100 unit/mL (3 mL) Inject 90 Units subcutaneously daily at bedtime. - finasteride (PROSCAR) 5 mg tablet - aspirin 81 mg chewable tablet Take 81 mg by mouth once daily. - insulin needles, DISPOSABLE, (1ST TIER UNIFINE PENTIPS) 31 gauge x 5/16 ndle 1 Each once daily. DX: E11.9 Insulin: Yes - Insulin Syringe-Needle U-100 1/2 mL 29 [...] of 08/20/2013: Problem List As Of Date 05/31/2024 Noted Resolved OTHER PSORIASIS [L40.8] 05/11/2005 Essential hypertension [I10] 05/11/2005 Morbid obesity (HCC) [E66.01] 05/11/2005 06/06/2023 Paranoid schizophrenia, subchronic condition wi*05/11/2005 04/23/2017 Type 2 diabetes mellitus with microalbuminuria *05/11/2005 Pure hypercholesterolemia [E78.00] 06/13/2005 06/06/2023 Sciatica [M54.30] 06/15/2005 05/06/2021 LUMB DISC DIS W MYELOPAT [M51.06] 09/22/2005 Sleep apnea [G47.30] 03/31/2009 Nonspecific abnormal results of liver function *03/31/2009 03/03/2022 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/24/2009 Low HDL (under 40) [E78.6] 06/09/2011 06/06/2023 Tubular adenoma of colon [D12.6] 06/02/2015 Schizophrenia, chronic condition (HCC) [F20.9] 04/23/2017 Obesity, Class II, BMI 35-39.9 [E66.9] 01/31/2021 SOB (shortness of breath) [R06.02] 01/31/2021 05/06/2021 Abnormal EKG [R94.31] 01/31/2021 05/06/2021 Paroxysmal atrial fibrillation (HCC) [I48.0] 02/15/2021 Chronic anticoagulation [Z79.01] 02/15/2021 Acute cholecystitis [K81.0] 06/06/2023 06/06/2023 Diagnosed: 06/06/2023 Acute respiratory failure (HCC) [J96.00] 06/06/2023 06/06/2023 Diagnosed: 06/06/2023 History of atrial fibrillation [Z86.79] 06/06/2023 06/06/2023 Diagnosed: 06/06/2023 History of colonic polyps [Z86.010] 06/06/2023 Diagnosed: 06/06/2023 Hyperlipidemia [E78.5] 06/06/2023 Diagnosed: 06/06/2023 Left lower lobe pneumonia [J18.9] 06/06/2023 06/06/2023 Diagnosed: 06/06/2023 Mild dehydration [E86.0] 04/04/2023 06/06/2023 Diagnosed: 06/06/2023 Nausea [R11.0] 03/06/2023 06/06/2023 Diagnosed: 06/06/2023 Nonobstructive atherosclerosis of coronary luis*06/06/2023 Diagnosed: 06/06/2023 (more content not included)... Normal [facility] HBA1C (OUTSIDE)on 05-07-2024 HbA1c (Bld) [Mass fraction] 7.2 % [facility] Basic metabolic 2000 panelon 04-12-2024 Anion gap [Moles/Vol] 14 mmol/L Normal 8-15 [facility] Comment on above: Order Comment: Speci men Type: BLOOD SPECIMEN [facility] Address: [address] [place] [address] Performed By: #### 2 4321-2 #### [facility] CLIA [id number] 1 [place] [address] [place] Calcium [Mass/Vol] 9.6 mg/dL Normal 8.5-10.2 [facility] Comment on above: Order Comment: Speci men Type: BLOOD SPECIMEN [facility] Address: [address] [place] [address] Performed By: #### 2 4321-2 #### [facility] CLIA [id number] 1 [place] [address] [place] Chloride [Moles/Vol] 97 mmol/L Low 98-107 [facility] Comment on above: Order Comment: Speci men Type: BLOOD SPECIMEN [facility] Address: [address] [place] [address] Performed By: #### 2 4321-2 #### [facility] CLIA [id number] 1 [place] [address] [place] CO2 [Moles/Vol] 22 mmol/L Normal 22-30 [facility] Comment on above: Order Comment: Speci men Type: BLOOD SPECIMEN [facility] Address: [address] [place] [address] Performed By: #### 2 4321-2 #### [facility] CLIA [id number] 1 [place] [address] [place] Creatinine [Mass/Vol] 1.10 mg/dL Normal 0.73-1.22 [facility] Comment on above: Order Comment: Kayycj de la rosa Type: BLOOD SPECIMEN [facility] Address: [address] [place] [address] Performed By: #### 2 4321-2 #### [facility] CLIA [id number] [address] [place] Creatinine and Glomerular filtration rate.predicted panel (S/P/Bld) 68 mL/min/1.73m??? Normal >=60 [facility] Comment on above: Order Comment: Salvatore estrella Type: BLOOD SPECIMEN [facility] Address: [address] [place] [address] Result Comment: Racquel mated Glomerular Filtration Rate (eGFR) is calculated using the 2020 CKD-EPI creatinine equation. This equation utilizes serum creatinine, sex, and age as parameters. The creatinine assay has traceable calibration to isotope dilution-mass spectrometry. Refer to KDIGO guidelines for clinical interpretation. In patients with unstable renal function, e.g. those with acute kidney injury, the eGFR may not accurately reflect actual GFR. Performed By: #### 2 4321-2 #### [facility] CLIA [id number] [address] [place] [address] [place] Glucose [Mass/Vol] 199 mg/dL High 74-99 [facility] Comment on above: Order Comment: Salvatore de la rosa Type: BLOOD SPECIMEN [facility] Address: [address] [place] [address] Result Comment: The [place] Diabetes Association (ADA) provides guidance for cutoff values for fasting glucose and random glucose. The ADA defines fasting as no caloric intake for at least 8 hours. Fasting plasma glucose results between 100 to 125 mg/dL indicate increased risk for diabetes (prediabetes). Fasting plasma glucose results greater than or equal to 126 mg/dL meet the criteria for diagnosis of diabetes. In the absence of unequivocal hyperglycemia, results should be confirmed by repeat testing. In a patient with classic symptoms of hyperglycemia or hyperglycemic crisis, random plasma glucose results greater than or equal to 200 mg/dL meet the criteria for diagnosis of diabetes. Reference: Standards of Medical Care in Diabetes 2016, [place] Diabetes Association. Diabetes Care. 2016.39(Suppl 1). Performed By: #### 2 4321-2 #### [facility] CLIA [id number] 1 [place] [address] [place] Potassium [Moles/Vol] 4.2 mmol/L Normal 3.7-5.1 [facility] Comment on above: Order Comment: Speci men Type: BLOOD SPECIMEN [facility] Address: [address] [place] [address] Performed By: #### 2 4321-2 #### [facility] CLIA [id number] [address] [place] Sodium [Moles/Vol] 133 mmol/L Low 136-144 [facility] Comment on above: Order Comment: Speci men Type: BLOOD SPECIMEN [facility] Address: [address] [place] [address] Performed By: #### 2 4321-2 #### [facility] CLIA [id number] [address] [place] Urea nitrogen [Mass/Vol] 27 mg/dL High 9-24 [facility] Comment on above: Order Comment: Speci men Type: BLOOD SPECIMEN [facility] Address: [address] [place] [address] Performed By: #### 2 4321-2 #### [facility] CLIA [id number] [address] [place] CBC W Auto Differential pane l (Bld)on 04-12-2024 Basophils (Bld) [#/Vol] 0.06 10*3/uL Normal <0.11 [facility] Comment on above: Order Comment: Speci men Type: BLOOD SPECIMEN [facility] Address: [address] [place] [address] Performed By: #### 5 7021-8 #### [facility] CLIA [id number] [address] [place] Basophils/100 WBC (Bld) 0.5 % Normal [facility] Comment on above: Order Comment: Speci men Type: BLOOD SPECIMEN [facility] Address: [address] [place] [address] Performed By: #### 5 7021-8 #### [facility] CLIA [id number] [address] Differential cell count method Nom (Bld) Auto Normal [facility] Comment on above: Order Comment: Speci men Type: BLOOD SPECIMEN [facility] Address: [address] [place] [address] Performed By: #### 5 7021-8 #### [facility] CLIA [id number] [address] [place] Eosinophils (Bld) [#/Vol] 0.39 10*3/uL Normal <0.46 [facility] Comment on above: Order Comment: Speci men Type: BLOOD SPECIMEN [facility] Address: [address] [place] [address] Performed By: #### 5 7021-8 #### [facility] CLIA [id number] [address] Eosinophils/100 WBC (Bld) 3.2 % Normal [facility] Comment on above: Order Comment: Speci men Type: BLOOD SPECIMEN [facility] Address: [address] [place] [address] Performed By: #### 5 7021-8 #### [facility] CLIA [id number] [address] Erythrocyte distribution width (RBC) [Ratio] 13.3 % Normal 11.5-15.0 [facility] Comment on above: Order Comment: Speci men Type: BLOOD SPECIMEN [facility] Address: [address] [place] [address] Performed By: #### 5 7021-8 #### [facility] CLIA [id number] [address] [place] Hematocrit (Bld) [Volume fraction] 40.6 % Normal 39.0-51.0 [facility] Comment on above: Order Comment: Speci men Type: BLOOD SPECIMEN [facility] Address: [address] [place] [address] Performed By: #### 5 7021-8 #### [facility] CLIA [id number] [address] [place] Hemoglobin (Bld) [Mass/Vol] 13.4 g/dL Normal 13.0-17.0 [facility] Comment on above: Order Comment: Speci men Type: BLOOD SPECIMEN [facility] Address: [address] [place] [address] Performed By: #### 5 7021-8 #### [facility] CLIA [id number] [address] [place] Immature granulocytes (Bld) [#/Vol] 0.05 10*3/uL Normal <0.10 [facility] Comment on above: Order Comment: Speci men Type: BLOOD SPECIMEN [facility] Address: [address] [place] [address] Performed By: #### 5 7021-8 #### [facility] CLIA [id number] [address] [place] Immature granulocytes/100 WBC (Bld) 0.4 % Normal [facility] Comment on above: Order Comment: Speci men Type: BLOOD SPECIMEN [facility] Address: [address] [place] [address] Performed By: #### 5 7021-8 #### [facility] CLIA [id number] [address] [place] Lymphocytes (Bld) [#/Vol] 2.34 10*3/uL Normal 1.00-4.00 [facility] Comment on above: Order Comment: Speci men Type: BLOOD SPECIMEN [facility] Address: [address] [place] [address] Performed By: #### 5 7021-8 #### [facility] CLIA [id number] [address] [place] Lymphocytes/100 WBC (Bld) 19.1 % Normal [facility] Comment on above: Order Comment: Speci men Type: BLOOD SPECIMEN [facility] Address: [address] [place] [address] Performed By: #### 5 7021-8 #### [facility] CLIA [id number] [address] MCH (RBC) [Entitic mass] 28.4 pg Normal 26.0-34.0 [facility] Comment on above: Order Comment: Speci men Type: BLOOD SPECIMEN [facility] Address: [address] [place] [address] Performed By: #### 5 7021-8 #### [facility] CLIA [id number] [address] MCHC (RBC) [Mass/Vol] 33.0 g/dL Normal 30.5-36.0 [facility] Comment on above: Order Comment: Speci men Type: BLOOD SPECIMEN [facility] Address: [address] [place] [address] Performed By: #### 5 7021-8 #### [facility] CLIA [id number] [address] MCV (RBC) [Entitic vol] 86.0 fL Normal 80.0-100.0 [facility] Comment on above: Order Comment: Speci men Type: BLOOD SPECIMEN [facility] Address: [address] [place] [address] Performed By: #### 5 7021-8 #### [facility] CLIA [id number] [address] Monocytes (Bld) [#/Vol] 1.38 10*3/uL High <0.87 [facility] Comment on above: Order Comment: Speci men Type: BLOOD SPECIMEN [facility] Address: [address] [place] [address] Performed By: #### 5 7021-8 #### [facility] CLIA [id number] [address] [place] Monocytes/100 WBC (Bld) 11.3 % Normal [facility] Comment on above: Order Comment: Speci men Type: BLOOD SPECIMEN [facility] Address: [address] [place] [address] Performed By: #### 5 7021-8 #### [facility] CLIA [id number] [address] [place] Neutrophils (Bld) [#/Vol] 8.02 10*3/uL High 1.45-7.50 [facility] Comment on above: Order Comment: Speci men Type: BLOOD SPECIMEN [facility] Address: [address] [place] [address] Performed By: #### 5 7021-8 #### [facility] CLIA [id number] [address] Neutrophils/100 WBC (Bld) 65.5 % Normal [facility] Comment on above: Order Comment: Speci men Type: BLOOD SPECIMEN [facility] Address: [address] [place] [address] Performed By: #### 5 7021-8 #### [facility] CLIA [id number] [address] [place] Nucleated RBC (Bld) [#/Vol] 10*3/uL Normal <0.01 [facility] Comment on above: Order Comment: Speci men Type: BLOOD SPECIMEN [facility] Address: [address] [place] [address] Performed By: #### 5 7021-8 #### [facility] CLIA [id number] [address] [place] Nucleated RBC/100 WBC (Bld) [Ratio] 0.0 /100 WBC Normal [facility] Comment on above: Order Comment: Speci men Type: BLOOD SPECIMEN [facility] Address: [address] [place] [address] Performed By: #### 5 7021-8 #### [facility] CLIA [id number] [address] Platelet mean volume (Bld) [Entitic vol] 10.7 fL Normal 9.0-12.7 [facility] Comment on above: Order Comment: Speci men Type: BLOOD SPECIMEN [facility] Address: [address] [place] [address] Performed By: #### 5 7021-8 #### [facility] CLIA [id number] [address] Platelets (Bld) [#/Vol] 268 10*3/uL Normal 150-400 [facility] Comment on above: Order Comment: Speci men Type: BLOOD SPECIMEN [facility] Address: [address] [place] [address] Performed By: #### 5 7021-8 #### [facility] CLIA [id number] [address] RBC (Bld) [#/Vol] 4.72 10*6/uL Normal 4.20-6.00 [facility] Comment on above: Order Comment: Speci men Type: BLOOD SPECIMEN [facility] Address: [address] [place] [address] Performed By: #### 5 7021-8 #### [facility] CLIA [id number] [address] WBC (Bld) [#/Vol] 12.24 10*3/uL High 3.70-11.00 [facility] Comment on above: Order Comment: Speci men Type: BLOOD SPECIMEN [facility] Address: [address] [place] [address] Performed By: #### 5 7021-8 #### [facility] CLIA [id number] [address] ED PROV NOTEon 04-12-2024 ED PROV NOTE HNO ID: [id number] Author: MELVIN BINGHAM MD Service: Emergency Medicine Author Type: Resident Type: ED Provider Notes Filed: 05/18/2024 00:10 Note Text: -------- Attestation signed by Melvin Bingham MD at 05/18/2024 12:10 AM Attending Note I personally saw the patient and performed a substantive portion of the visit including all aspects of the medical decision making. I supervised and was present for jennings portions of any procedures performed by the resident. I agree with the resident's findings and plan with the following revisions and/or additions: Signature: Melvin Bingham MD -------- ED Provider Note Patient Name: Faisal Alarcon : 1945 SERVICE DATE: 04/12/24 History Patient presents with: Hematuria: Pt arrives with family stating patient has been having hematuria since Sunday- was seen in [place] ER and urologist this week. Pt states he is supposed to be getting scoped but tonight began feeling light headed, dizzy and legs felt weak. Pt does take eliquis. This is an 79-year-old male who presents to the emergency department for hematuria. History obtained from patient and daughter at bedside. Sunday of last week patient passed 4 inch blood clot. He went to the emergency department in [place] and was told to follow-up with urology outpatient. Patient had urology appointment in [place] on of this past week who planned for cystoscopy on April 29. They were told that if he had any new symptoms to go to the emergency department. Patient went back to the emergency department in [place] where they performed lab work that was negative for anemia. The patient is now reporting continued dizziness and headache. Patient inquiring if they can see urology for cystoscopy on a more urgent basis here at [facility]. Patient is well appearing in no acute distress upon my examination of him. PAST MEDICAL HISTORY Diagnosis Date DIABETES MELLITUS [...] 09/17/1980 Years since quittin.5 Smokeless tobacco: Never Vaping Use Vaping Use: Never used Substance and Sexual Activity Alcohol use: No Drug use: No Sexual activity: Not on file ALLERGIES Allergen Reactions Amoxicillin generalized erythema Review of Systems Constitutional: Negative for fatigue and fever. Respiratory: Negative for cough, choking, chest tightness and shortness of breath. Cardiovascular: Negative for chest pain and palpitations. Gastrointestinal: Negative for abdominal pain, constipation, diarrhea, nausea and vomiting. Genitourinary: Positive for hematuria. Negative for difficulty urinating, dysuria and urgency. Musculoskeletal: Negative for back pain and neck stiffness. Neurological: Positive for light-headedness and headaches. Negative for syncope, weakness and numbness. Physical Exam Vitals [04/12/24 0228] BP Pulse Temp Temp src Resp SpO2 Weight Height 146/56 78 36.5 ?C (97.7 ?F) Oral 16 100 % (!) 140.2 kg (309 lb) -- Physical Exam Constitutional: Appearance: Normal appearance. HENT: Head: Normocephalic and atraumatic. Cardiovascular: Rate and Rhythm: Normal rate and regular rhythm. Pulmonary: Effort: Pulmonary effort is normal. No respiratory distress. Breath sounds: Normal breath sounds. No wheezing. Abdominal: General: Abdomen is flat. Bowel sounds are normal. There is no distension. Tenderness: There is no abdominal tenderness. Skin: General: Skin is warm and dry. Coloration: Skin is not pale. Neurological: General: No focal deficit present. Mental Status: He is alert and oriented to person, place, and time. Diagnostic Testi (more content not included)... Normal [facility] Urinalysis complete panel (U )on 04-12-2024 Bacteria LM.HPF (Urine sed) [#/Area] Few Abnormal None Seen [facility] Comment on above: Order Comment: Speci men Type: URINE SPECIMEN Ordering Facility[facility] Address: [address] [place] [address] Performed By: #### 2 4356-8 #### [facility] CLIA [id number] [address] Bilirubin Ql (U) 1+ Abnormal Negative [facility] Comment on above: Order Comment: Speci men Type: URINE SPECIMEN Ordering Facility: [facility] Address: [address] [place] [address] Result Comment: Sugg est correlation with clinical findings and serum bilirubin if clinically indicated. Performed By: #### 2 4356-8 #### [facility] CLIA [id number] [address] OF [facility] Clarity (Unsp spec) Cloudy Abnormal Clear [facility] Comment on above: Order Comment: Speci men Type: URINE SPECIMEN Ordering Facility: [facility] Address: [facility] [place] [address] Performed By: #### 2 4356-8 #### [facility] CLIA [id number] [address] Color (U) Yellow Normal Yellow [facility] Comment on above: Order Comment: Speci men Type: URINE SPECIMEN Ordering Facility: [facility] Address: [address] [place] [address] Performed By: #### 2 4356-8 #### [facility] CLIA [id number] [address] Glucose Test strip (U) [Mass/Vol] Trace Abnormal Negative [facility] [facility] Comment on above: Order Comment: Speci men Type: URINE SPECIMEN Ordering Facility: [facility] Address: [address] [place] [address] Performed By: #### 2 4356-8 #### [facility] CLIA [id number] [address] Hemoglobin Ql (U) 3+ Abnormal Negative [facility] Comment on above: Order Comment: Speci men Type: URINE SPECIMEN Ordering Facility: [facility] Address: [address] [place] [address] Performed By: #### 2 4356-8 #### [facility] CLIA [id number] [address] Ketones Ql (U) Trace Abnormal Negative [facility] Comment on above: Order Comment: Speci men Type: URINE SPECIMEN Ordering Facility: [facility] Address: [address] [place] [address] Performed By: #### 2 4356-8 #### [facility] CLIA [id number] [address] Leukocyte esterase Test strip Ql (U) Negative Normal Negative [facility] Comment on above: Order Comment: Speci men Type: URINE SPECIMEN Ordering Facility: [facility] Address: [address] [place] [address] Performed By: #### 2 4356-8 #### [facility] CLIA [id number] [address] [place] Nitrite Ql (U) Negative Normal Negative [facility] Comment on above: Order Comment: Speci men Type: URINE SPECIMEN Ordering Facility: [facility] Address: [address] [place] [address] Performed By: #### 2 4356-8 #### [facility] CLIA [id number] [address] pH (U) 6.0 [pH] Normal 5.0-8.0 [facility] Comment on above: Order Comment: Speci men Type: URINE SPECIMEN Ordering Facility: [facility] Address: [address] [place] [address] Performed By: #### 2 4356-8 #### [facility] CLIA [id number] [address] Protein (U) [Mass/Vol] 1+ Abnormal Negative [facility] Comment on above: Order Comment: Speci men Type: URINE SPECIMEN Ordering Facility: [facility] Address: [address] [place] [address] Performed By: #### 2 4356-8 #### [facility] CLIA [id number] [address] RBC LM.HPF (Urine sed) [#/Area] /[HPF] Abnormal 0-3 /HPF [facility] Comment on above: Order Comment: Speci men Type: URINE SPECIMEN Ordering Facility: [facility] Address: [address] [place] [address] Performed By: #### 2 4356-8 #### [facility] CLIA [id number] [address] Specific gravity (U) [Rel density] >=1.030 High 1.005-1.030 [facility] Comment on above: Order Comment: Speci men Type: URINE SPECIMEN Ordering Facility: [facility] Address: [address] [place] [address] Performed By: #### 2 4356-8 #### [facility] CLIA [id number] [address] Urobilinogen Ql (U) 0.2 EU/dL Normal 0.2 EU/d L, 1.0 EU/dL [facility] Comment on above: Order Comment: Speci men Type: URINE SPECIMEN Ordering Facility: [facility] Address: [address] [facility] [place] [address] Performed By: #### 2 4356-8 #### [facility] CLIA [id number] [address] WBC LM.HPF (Urine sed) [#/Area] 6-10 /HPF Abnormal 0-5 /HPF [facility] Comment on above: Order Comment: Speci men Type: URINE SPECIMEN Ordering Facility: [facility] Address: [address] [address] Performed By: #### 2 4356-8 #### [facility] CLIA [id number] [address] CNOVon 04-09-2024 CNOV Office Visit (UCWSTR ) -------- FAISAL ALARCON ([id number]) 1945 M Date Time Provider Department 04/09/24 2:30 PM ANDREW GUALLPA [facility] During your visit today, we recorded the following information about you: Temperature Pulse Respiration Blood pressure 98.8 degrees 94/minute 20/minute 128/84 Weight 140.6 kg Andrew Guallpa, PAIGE.PECAN SHELLER 04/09/2024 2:44 PM Signed Subjective HPI Nontoxic-appearing male presents urgent care chief complaint left hand injury. Patient states was shutting door when he scraped his hand on the door frame. Presents today for evaluation. Has an abrasion on his hand. Does take blood thinning medications. States area was more swollen and swelling has improved. No numbness no tingling. Denies any other injuries. Overall feels well. Denies any fever body aches chills productive cough chest pain shortness of breath pleuritic pain hemoptysis nausea vomiting abdominal pain change in bowel or bladder habits. Past medical history prescription medication use and allergies reviewed. .Patient presents with: Edema: Left hand swollen x 1 day PAST MEDICAL HISTORY Diagnosis Date DIABETES MELLITUS [...] REDUCIBLE Hernia repair, umbilical ALLERGIES Amoxicillin MEDICATIONS ELIQUIS 5 mg tab(s) take 1 tablet by mouth twice a day blood sugar diagnostic (BLOOD GLUCOSE TEST) test strip Test blood sugar(s) two times daily. Dx: Type 2 DM - Controlled E11.9 Insulin: Yes albuterol HFA (VENTOLIN HFA) 90 mcg/actuation inhaler Inhale 2 Puffs as instructed every 4 hours as needed. famotidine (PEPCID) 20 mg tablet Take 1 tablet by mouth two times a day. diclofenac (VOLTAREN ARTHRITIS PAIN) 1 % topical gel Apply 2 g to affected area four times daily. insulin lispro (HUMALOG KWIKPEN INSULIN) 100 unit/mL Inject 20 Units subcutaneously three times a day before meals. Getting through [facility] dilTIAZem CD (CARDIZEM CD, CARTIA XT) 120 mg 24 hr capsule Take 1 capsule by mouth once daily. losartan-hydroCHLOROthia zide (HYZAAR) 100-12.5 mg per tablet Take 1 tablet by mouth once daily. spironolactone (ALDACTONE) 25 mg tablet Take 1 tablet by mouth once daily. carvedilol (COREG) 25 mg tablet Take 1 tablet by mouth two times a day. metFORMIN ER (GLUCOPHAGE XR) 500 mg 24 hr tablet Take 2 tablets by mouth two times a day before meals. simvastatin (ZOCOR) 40 mg tablet Take 1 tablet by mouth daily at bedtime. flecainide (TAMBOCOR) 150 mg tablet Take 1 tablet by mouth every 12 hours. Prescribed by outside fundraising specialist colestipol (COLESTID) 1 gram tablet Take 1 tablet by mouth once daily. insulin glargine (BASAGLAR KWIKPEN U-100 INSULIN) 100 unit/mL (3 mL) Inject 90 Units subcutaneously daily at bedtime. finasteride (PROSCAR) 5 mg [...] twice daily. Accucheck compact test strips, dx-NIDDM furosemide (LASIX) 40 mg tablet Take 1 tablet by mouth once daily. (Patient not taking: Reported on 04/09/2024) furosemide (LASIX) 40 mg tablet Take 1 tablet by mouth once daily. (Patient not taking: Reported on 02/28/2024) FAMILY HISTORY Problem Relation Age of Onset Heart Father Hypertension Father Cancer Mother Colon Cancer Sister Cancer Sister Colon Cancer Brother Social History Tobacco Use Smoking status: Former Packs/day: 2.00 Years: 10.00 Additional pack years: 0.00 Total pack years: 20.00 Types: Cigarettes Quit date: 09/17/1980 Years since quittin.5 Smokeless tobacco: Never Vaping Use Vaping Use: Never used Substance Use Topics Alcohol use: No Drug use: No BP 128/84 Pulse 94 Temp 37.1 ?C (98.8 ?F (more content not included)... Normal [facility] Ema 03-21-2024 [facility] Tele[facility] (FAMHamWS) -------- FAISAL ALARCON ([id number]) 1945 M Date Time Provider Department 03/21/24 Osvaldo TRAVIS During your visit today, we recorded the following information about you: Osvaldo Travis PA-C 03/21/2024 9:09 AM Signed Please advise: Ultrasound showed as expected venous incompetence in the left leg. None in the right and no blood clots. Both sides with large varicosities. Options for treatment would be: 1. compression stockings- they would need to be measured and fitted: zippered stockings would be easier to get on. 2. PT consult for lymphedema and possible home leg pumps to reduce swelling. Telephone on 03/21/24 VAIROX W ZIP KNEE HI 30-40WT CONSULT TO LYMPHEDEMA THERAPY Venous incompetence (primary encounter diagnosis) Lymphedema of left leg Varicose veins of both legs with edema Prosper Patel PA-C Hudson, M Robin, NILDA 03/21/2024 1:06 PM Signed Left vm on daughters vm to return call to nurse for provider's message, regarding patient's US results. Reanna Greenberg RN 03/21/2024 1:18 PM Signed Patient's daughter notified of results and provider's instructions. Patient daughter verbalizes understanding. 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 - furosemide (LASIX) 40 mg tablet Take 1 tablet by mouth once daily. - blood sugar diagnostic (BLOOD GLUCOSE TEST) test strip Test blood sugar(s) two times daily. Dx: Type 2 DM - Controlled E11.9 Insulin: Yes - albuterol HFA (VENTOLIN HFA) 90 mcg/actuation inhaler Inhale 2 Puffs as instructed every 4 hours as needed. - famotidine (PEPCID) 20 mg tablet Take 1 tablet by mouth two times a day. - diclofenac (VOLTAREN ARTHRITIS PAIN) 1 % topical gel Apply 2 g to affected area four times daily. - insulin lispro (HUMALOG KWIKPEN INSULIN) 100 unit/mL Inject 20 Units subcutaneously three times a day before meals. Getting through [facility] - dilTIAZem CD (CARDIZEM CD, CARTIA XT) 120 mg 24 hr capsule Take 1 capsule by mouth once daily. - losartan-hydroCHLOROthia zide (HYZAAR) 100-12.5 mg per tablet Take 1 tablet by mouth once daily. - spironolactone (ALDACTONE) 25 mg tablet Take 1 tablet by mouth once daily. - carvedilol (COREG) 25 mg tablet Take 1 tablet by mouth two times a day. - metFORMIN ER (GLUCOPHAGE XR) 500 mg 24 hr tablet Take 2 tablets by mouth two times a day before meals. - simvastatin (ZOCOR) 40 mg tablet Take 1 tablet by mouth daily at bedtime. - flecainide (TAMBOCOR) 150 mg tablet Take 1 tablet by mouth every 12 hours. Prescribed by outside fundraising specialist - colestipol (COLESTID) 1 gram tablet Take 1 tablet by mouth once daily. - insulin glargine (BASAGLAR KWIKPEN U-100 INSULIN) 100 unit/mL (3 mL) Inject 90 Units subcutaneously daily at bedtime. - finasteride (PROSCAR) 5 mg tablet - aspirin 81 mg chewable tablet Take 81 mg by mouth once daily. - insulin needles, DISPOSABLE, (1ST TIER UNIFINE PENTIPS) 31 gauge x 5/16 ndle 1 Each once daily. DX: E11.9 Insulin: Yes - Insulin Syringe-Needle U-100 1/2 mL 29 [...] of 08/20/2013: Problem List As Of Date 03/21/2024 Noted Resolved OTHER PSORIASIS [L40.8] 05/11/2005 Essential hypertension [I10] 05/11/2005 Morbid obesity (HCC) [E66.01] 05/11/2005 06/06/2023 Paranoid schizophrenia, subchronic condition wi*05/11/2005 04/23/2017 Type 2 diabetes mellitus with microalbuminuria *05/11/2005 Pure hypercholesterolemia [E78.00] 06/13/2005 06/06/2023 Sciatica [M54.30] 06/15/2005 05/06/2021 LUMB DISC DIS W MYELOPAT [M51.06] 09/22/2005 Sleep apnea [G47.30] 03/31/2009 Nonspecific abnormal results of liver function *03/31/2009 03/03/2022 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 Normal [facility] Ema 03-19-2024 CNPN Telephone (FAMPWS) -------- ESHAFAISAL Huirton ([id number]) 1945 Date Time Provider Department 03/19/24 Osvaldo TRAVIS During your visit today, we recorded the following information about you: Osvaldo Travis PA-C 03/19/2024 6:02 AM Signed Please advise Faisal that his echo shows normal pumping power though slightly less than prior study. The left ventricle is a little beefy which usually comes from high blood pressure, but he also mild to moderate aortic valve stenosis meaning the heart has to work harder to pump through that narrowed space: also a little worse than last time with some calcification on the valve. The peak gradient is 32mmHg, up from 13 mmHg. He follows with [facility]: please have him follow up with them in next few months and please have the echo sent there for them to review. Thanks, JERMAINE Godniez M Robin, NILDA 03/19/2024 8:20 AM Signed Phoned patient and given provider's message below. Patient reports he is [place] and asked this nurse to call his daughter, Loan, to give her the message. Left vm on Loan's vm asking her to return call to triage nurse for provider's message. Kennedi Frey LPN 03/19/2024 9:20 AM Signed Daughter notified with results below and report faxed to [facility]. Kennedi Frey LPN Allergies As of Date: 03/19/2024 Noted Allergy Reaction AMOXICILLIN 05/11/2005 Comments: generalized erythema Date Reviewed: 02/28/2024 Reviewed by: Carol Ann Lara LPN - Fully Assessed Reason for Visit: Results [95] Prescriptions as of 03/19/2024 - ELIQUIS 5 mg tab(s) take 1 tablet by mouth twice a day - furosemide (LASIX) 40 mg tablet Take 1 tablet by mouth once daily. - furosemide (LASIX) 40 mg tablet Take 1 tablet by mouth once daily. - blood sugar diagnostic (BLOOD GLUCOSE TEST) test strip Test blood sugar(s) two times daily. Dx: Type 2 DM - Controlled E11.9 Insulin: Yes - albuterol HFA (VENTOLIN HFA) 90 mcg/actuation inhaler Inhale 2 Puffs as instructed every 4 hours as needed. - famotidine (PEPCID) 20 mg tablet Take 1 tablet by mouth two times a day. - diclofenac (VOLTAREN ARTHRITIS PAIN) 1 % topical gel Apply 2 g to affected area four times daily. - insulin lispro (HUMALOG KWIKPEN INSULIN) 100 unit/mL Inject 20 Units subcutaneously three times a day before meals. Getting through [facility] - dilTIAZem CD (CARDIZEM CD, CARTIA XT) 120 mg 24 hr capsule Take 1 capsule by mouth once daily. - losartan-hydroCHLOROthia zide (HYZAAR) 100-12.5 mg per tablet Take 1 tablet by mouth once daily. - spironolactone (ALDACTONE) 25 mg tablet Take 1 tablet by mouth once daily. - carvedilol (COREG) 25 mg tablet Take 1 tablet by mouth two times a day. - metFORMIN ER (GLUCOPHAGE XR) 500 mg 24 hr tablet Take 2 tablets by mouth two times a day before meals. - simvastatin (ZOCOR) 40 mg tablet Take 1 tablet by mouth daily at bedtime. - flecainide (TAMBOCOR) 150 mg tablet Take 1 tablet by mouth every 12 hours. Prescribed by outside fundraising specialist - colestipol (COLESTID) 1 gram tablet Take 1 tablet by mouth once daily. - insulin glargine (BASAGLAR KWIKPEN U-100 INSULIN) 100 unit/mL (3 mL) Inject 90 Units subcutaneously daily at bedtime. - finasteride (PROSCAR) 5 mg tablet - aspirin 81 mg chewable tablet Take 81 mg by mouth once daily. - insulin needles, DISPOSABLE, (1ST TIER UNIFINE PENTIPS) 31 gauge x 5/16 ndle 1 Each once daily. DX: E11.9 Insulin: Yes - Insulin Syringe-Needle U-100 1/2 mL 29 [...] of 08/20/2013: Problem List As Of Date 03/19/2024 Noted Resolved OTHER PSORIASIS [L40.8] 05/11/2005 Essential hypertension [I10] 05/11/2005 Morbid obesity (HCC) [E66.01] 05/11/2005 06/06/2023 Paranoid schizophrenia, subchronic condition wi*05/11/2005 04/23/2017 Type 2 diabetes mellitus with microalbuminuria *05/11/2005 Pure hypercholesterolemia [E78.00] 06/13/2005 06/06/2023 Sciatica [M54.30] 06/15/2005 05/06/2021 LUMB DISC DIS W MYELOPAT [M51.06] 09/22/2005 Sleep apnea [G47.30] 03/31/2009 Nonspecific abnormal results of liver function *03/31/2009 03/03/2022 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 Normal [facility] VENOUS INCOMPETENCY JABARI V LABon 03-19-2024 VENOUS INCOMPETENCY JABARI VAS LAB Non-Invasive [facility] Venous Valvular Incompetency Bilateral/Complete Date of service/time: 03/19/2024 12:34:08 PM Name: MR. FAISAL ALARCON Date of : 1945 Age: 78 years Gender: M Clinical Indication Lower extremity swelling and varicose veins. TECHNIQUE -------- A venous duplex ultrasound examination was performed, including grayscale imaging with compression maneuvers and color Doppler and spectral Doppler examination with augmentation maneuvers and response to respiration of the below mentioned veins. FINDINGS -------- Patient position reverse Trendelenburg 45 degrees. RIGHT SIDE Method of augmentation: manual. Common femoral vein Doppler: normal flow. Compression: normal. Femoral vein Doppler: normal flow. Compression: normal. Popliteal vein Doppler: normal flow. Compression: normal. Great saphenous vein Compression: normal. Small saphenous vein Compression: normal. RIGHT GREAT SAPHENOUS VEIN Saphenofemoral junction Augmentation reflux none. Valsalva reflux none. Size 0.93 cm. Proximal thigh Augmentation reflux none. Valsalva reflux none. Size 0.31 cm. Mid thigh Augmentation reflux none. Valsalva reflux none. Size 0.27 cm. Distal thigh Augmentation reflux none. Valsalva reflux none. Size 0.32 cm. At Knee Augmentation reflux none. Size 0.24 cm. Proximal calf Augmentation reflux none. Size 0.24 cm. Mid calf Augmentation reflux none. Size 0.34 cm. Distal calf Augmentation reflux none. Size 0.29 cm. RIGHT SMALL SAPHENOUS VEIN Saphenopopliteal junction Augmentation reflux none. Size 0.40 cm. Proximal calf Augmentation reflux none. Size 0.29 cm. Mid calf Augmentation reflux none. Size 0.28 cm. Distal calf Augmentation reflux none. Size 0.22 cm. RIGHT BRANCHES AND PERFORATORS Varicosity mid calf Augmentation reflux none. Size 0.26 cm. Greenstone Polisher Operator vein distal calf Augmentation reflux none. Valsalva reflux none. Size 0.22 cm. Depth 0.19 cm. LEFT SIDE Method of augmentation: manual. Common femoral vein Doppler: normal flow. Compression: normal. Femoral vein Doppler: normal flow. Compression: normal. Popliteal vein Doppler: normal flow. Compression: normal. Great saphenous vein Compression: normal. Small saphenous vein Compression: normal. LEFT GREAT SAPHENOUS VEIN Saphenofemoral junction Augmentation reflux none. Valsalva reflux none. Size 0.59 cm. Proximal thigh Augmentation reflux none. Valsalva reflux none. Size 0.53 cm. Mid thigh Augmentation reflux none. Valsalva reflux none. Size 0.42 cm. Distal thigh Augmentation reflux none. Valsalva reflux none. Size 0.38 cm. At Knee Augmentation reflux greater than or equal to 0.5 second. Size 0.39 cm. Proximal calf Augmentation reflux none. Size 0.28 cm. Mid calf Augmentation reflux none. Size 0.30 cm. Distal calf Augmentation reflux none. Size 0.33 cm. LEFT SMALL SAPHENOUS VEIN Saphenopopliteal junction Augmentation reflux none. Size 0.33 cm. Proximal calf Augmentation reflux none. Size 0.28 cm. Mid calf Augmentation reflux none. Size 0.27 cm. Distal calf Augmentation reflux none. Size 0.19 cm. LEFT BRANCHES AND PERFORATORS Varicosity distal calf Augmentation reflux none. Size 0.28 cm. Greenstone Polisher Operator vein distal calf Augmentation reflux none. Valsalva reflux none. Size 0.32 cm. Depth 0.78 cm. IMPRESSION RIGHT SIDE - DEEP VEINS Negative for acute deep vein thrombosis in vessels visualized. RIGHT SIDE - SUPERFICIAL VEINS Negative for valvular incompetency in the great saphenous vein. Varicosities mid to distal calf. Negative for valvular incompetency in the small saphenous vein. LEFT SIDE - DEEP VEINS Negative for acute deep vein thrombosis in vessels visualized. LEFT SIDE - SUPERFICIAL VEINS Positive for valvular incompetency in the great saphenous vein. Reflux noted AT THE KNEE ONLY. Varicosities noted distal calf. Negative for valvular incompetency in the small saphenous vein. Technologist: Chrissy Mireles RVT, SHAMEKATX Ordering physician: Osvaldo TRAVIS Interpreting physician: Italo Neil MD, RPVI Final CC [employer] [facility] : [id number] ID See Link below for Image Normal [facility] ECHOon 03-17-2024 Echocardiography Echocardiography Rep ort: [facility]ansthoracic [facility] Date of service: 03/17/2024 2:48:35 PM INSPECTOR Ordering physician: Osvaldo TRAVIS Indication: Atrial fibrallation Technologist: Reanna Corcoran RD Interpreting physician: Halle Lake MD PATIENT: Name: MR. FAISAL WAITEN: [id number] : 1945 Age: 78 years Gender: M History of hypertension, diabetes mellitus and dyslipidemia. Primary rhythm: sinus. Height: 185.40 cm BSA: 2.68 m Weight: 139.89 kg BMI: 40.7 kg/m Heart rate 84 bpm Technically difficult exam due to body habitus and lung interference. Color Doppler was utilized to interrogate the cardiac valves assessed and spectral Doppler was utilized to determine the flow velocities and pressure gradients reported in this exam. MEASUREMENTS: Value Indexed Normal Max aortic dimension 3.7 cm Ao < 3.8 Left atrial volume 91 ml (biplane A-L) 34 ml/m Dior <= 34 LV ID (diastole) 4.9 cm (2D) 1.81 cm/m LV ID (systole) 2.8 cm (2D) 1.05 cm/m IVS, leaflet tips 1.2 cm (2D) Posterior wall thickness 1.3 cm (2D) Left ventricular mass 231 g (2D) 86 g/m LV stroke volume 79 ml (2D 4-ch.) LVOT stroke volume 65 ml 25 ml/m LV end diastolic volume 142 ml (2D 4-ch.) 52.9 ml/m 34<=EDVi<75 LV end systolic volume 63 ml (2D 4-ch.) 23.3 ml/m Ejection Fraction 56 % (2D 4-ch.) EF > 52 FINDINGS: LEFT VENTRICLE The left ventricle is normal in size. There is mild concentric left ventricular hypertrophy. Left ventricular systolic function is normal. Indeterminate left ventricular diastolic dysfunction. Mitral annular lateral E/e': 15.0. Wall Motion: All scored segments are normal. RIGHT VENTRICLE The right ventricle is normal in size. Right ventricular systolic function is normal. RV systolic tissue Doppler velocity is 14.0 cm/s. Tricuspid annular displacement is 2.1 cm. Estimated right ventricular systolic pressure is 46 mmHg consistent with mild pulmonary hypertension. Estimated right atrial pressure is 3 mmHg (although IVC not seen). LEFT ATRIUM The left atrial cavity is normal in size. RIGHT ATRIUM The right atrial cavity is normal in size. Inferior Vena Cava: The inferior vena cava appears normal measuring 1.9 cm. MITRAL VALVE There is mild mitral annular calcification observed anterior and posterior. There is mild (1+) mitral valve regurgitation. The pressure half time is 50 msec. The peak mitral E/A ratio is 1.20. The average mitral E/e' ratio is 15.0. The mitral flow deceleration time is 173 msec. TRICUSPID VALVE The tricuspid valve leaflets are structurally normal. There is trace (trace - 1+) tricuspid valve regurgitation. AORTIC VALVE There is mild to moderate aortic valve stenosis caused by calcified valve. There is no aortic valve regurgitation. There is mild thickening. There is moderate calcification. The peak gradient is 32 mmHg (peak velocity = 282.1 cm/s). The mean gradient is 17 mmHg. The LVOT mean velocity is 69.5 cm/s. The LVOT diameter is 2.0 cm. The aortic VTI is 50.6 cm. The mean velocity in the aortic valve is 195.7 cm/s. The dimensionless valve index is 0.42. AV area is 1.29 cm (0.48 cm /m ) by continuity, VTI. The LVOT stroke volume index is 25 ml/m . PULMONIC VALVE The pulmonic valve cusps are structurally normal. There is trace pulmonic valve regurgitation. AORT Measurements - Mid ascending aorta 3.4 cm. Distal ascending aorta 3.7 cm. PERICARDIUM There is no pericardial effusion. There is an epicardial fat pad. CONCLUSIONS: - Technically difficult exam due to body habitus and lung interference. - Exam indication: Atrial fibrallation - The left ventricle is normal in size. There is mild concentric left ventricular hypertrophy. Left ventricular systolic function is normal. EF = 56 5% (2D 4-ch.) Indeterminate left ventricular diastolic dysfunction. - The right ventricle is normal in size. Right ventricular systolic function is normal. - There is mild to moderate aortic valve stenosis caused by calcified valve. AV area is 1.29 cm (0.48 cm /m ) by continuity, VTI. The peak gradient is 32 mmHg, the mean gradient is 17 mmHg and the dimensionless valve index is 0.42. - Distal ascending aorta measured 3.7cm. - Exam was compared with the prior echocardiographic exam performed on 01/27/2021. Prior EF was reported to be 65%. * * * Final * * * [employer] : [id number] Normal [facility] Basic metabolic 2000 panelon 02-28-2024 Anion gap [Moles/Vol] 13 mmol/L Normal 8-15 [facility] Comment on above: Order Comment: Speci men Type: BLOOD SPECIMENOrdering Facility: [facility] Address: [address] [place] [address] Performed By: #### 2 4321-2, 20855-7 ####[facility] LABCLIA [id number] [place] [address] [place] Calcium [Mass/Vol] 10.0 mg/dL Normal 8.5-10.2 [facility] Comment on above: Order Comment: Speci men Type: BLOOD SPECIMENOrdering Facility: [facility] Address: [address] [place] [address] Performed By: #### 2 4321-2, 10118-1 ####[facility] LABCLIA [id number] [place] [address] [place] Chloride [Moles/Vol] 99 mmol/L Normal 98-107 [facility] Comment on above: Order Comment: Speci men Type: BLOOD SPECIMENOrdering Facility: [facility] Address: [address] [place] [address] Performed By: #### 2 4321-2, 97701-2 ####[facility] LABCLIA [id number] [place] [address] [place] CO2 [Moles/Vol] 22 mmol/L Normal 22-30 [facility] Comment on above: Order Comment: Speci men Type: BLOOD SPECIMENOrdering Facility: [facility] Address: [address] [place] [address] Performed By: #### 2 4321-2, 76398-2 ####[facility] LABCLIA [id number] [place] [address] [place] Creatinine [Mass/Vol] 1.04 mg/dL Normal 0.73-1.22 [facility] Comment on above: Order Comment: Salvatore de la rosa Type: BLOOD SPECIMENOrdering Facility: [facility] Address: [address] [place] [address] Performed By: #### 2 4321-2, 35249-1 ####[facility] LABCLIA [id number] [place] [address] [place] Creatinine and Glomerular filtration rate.predicted panel (S/P/Bld) 73 mL/min/1.73m??? Normal >=60 [facility] Comment on above: Order Comment: Salvatore de la rosa Type: BLOOD SPECIMENOrdering Facility: [facility] Address: [address] [place] [address] Result Comment: Racquel mated Glomerular Filtration Rate (eGFR) is calculated using the 2020 CKD-EPI creatinine equation. This equation utilizes serum creatinine, sex, and age as parameters. The creatinine assay has traceable calibration to isotope dilution-mass spectrometry. Refer to KDIGO guidelines for clinical interpretation. In patients with unstable renal function, e.g. those with acute kidney injury, the eGFR may not accurately reflect actual GFR. Performed By: #### 2 4321-2, 05481-4 ####[facility] LABCLIA [id number] [place] [address] [place] Glucose [Mass/Vol] 231 mg/dL High 74-99 [facility] Comment on above: Order Comment: Salvatore de la rosa Type: BLOOD SPECIMENOrdering Facility: [facility] Address: [address] [place] [address] Result Comment: The [place] [employer] (ADA) provides guidance for cutoff values for fasting glucose and random glucose. The ADA defines fasting as no caloric intake for at least 8 hours. Fasting plasma glucose results between 100 to 125 mg/dL indicate increased risk for diabetes (prediabetes). Fasting plasma glucose results greater than or equal to 126 mg/dL meet the criteria for diagnosis of diabetes. In the absence of unequivocal hyperglycemia, results should be confirmed by repeat testing. In a patient with classic symptoms of hyperglycemia or hyperglycemic crisis, random plasma glucose results greater than or equal to 200 mg/dL meet the criteria for diagnosis of diabetes. Reference: Standards of Medical Care in Diabetes 2016, [place] [employer]. Diabetes Care. 2016.39(Suppl 1). Performed By: #### 2 4321-2, 41916-5 ####[facility] LABCLIA [id number] [place] [address] [place] Potassium [Moles/Vol] 4.9 mmol/L Normal 3.7-5.1 [facility] Comment on above: Order Comment: Kayyi men Type: BLOOD SPECIMENOrdering Facility: [facility] Address: [address] [place] [address] Performed By: #### 2 4321-2, 37196-3 ####[facility] LABIA [id number] [place] [address] [place] Sodium [Moles/Vol] 134 mmol/L Low 136-144 [facility] Comment on above: Order Comment: Kayyi men Type: BLOOD SPECIMENOrdering Facility: [facility] Address: [address] [place] [address] Performed By: #### 2 4321-2, 45452-1 ####[facility] LABIA [id number] [place] [address] [place] Urea nitrogen [Mass/Vol] 28 mg/dL High 9-24 [facility] Comment on above: Order Comment: Salvatore men Type: BLOOD SPECIMENOrdering Facility: [facility] Address: [address] [place] [address] Performed By: #### 2 4321-2, 22620-6 ####[facility] LABIA [id number] [address] [place] CNOVon 02-28-2024 CNOV Office Visit (FAMPWS ) -------- ESHAFAISAL Huitron ([id number]) 1945 M Date Time Provider Department 02/28/24 11:00 AM Osvaldo TRAVIS During your visit today, we recorded the following information about you: Pulse Blood pressure Weight 85/minute 148/86 139.9 kg Osvaldo Travis PA-C 02/28/2024 2:02 PM Signed 78 year old male with c/ohx non-obstructive coronary artery disease, HTN, pAF on anticoag, restrictive lung disease here for 4 week follow up on SOB, leg swelling Lasix 40mg daily x 5 without change in weight , leg edema. From last visit notes: SOB if he tries to do anything, nothing new- attributes to beta salvador, but daughter states preceded. Reaffirms the following: Sleeps in bed, one pillow, usually lays on right side No chest/ neck/ shoulder or arm pain Not feeling weak. No recent colds or infections. No lower leg pain or tenderness 500 feet walking with dyspnea- not new. Sees [facility], last visit 10/24/2023: Notes identified paroxysmal atrial fibrillation appears stable, continue same medications, discussed repeating echo and stress EKG, no other changes. 09/22/2023 twelve-lead ECG: Normal sinus rhythm first-degree AV block 86 bpm, RBBB, QRS 156 11/21/2022 stress test negative for ischemia 01/27/2021 echocardiogram: LV size WNL, mild concentric LVH, LV SF WNL: EF 65?5%, grade 1 LVDD RV normal in size and RV SF, insufficient TR to estimate RVSP. RAP 8 mmHg per IVC LA size WNL RA size unable to measure due to technical limitation No significant valvular abnormalities 02/05/2024 CXR: No developing or acute process Today state always is this SOB, nothing new No recent infections or illness sx. Latest Ref Rng 11/28/2023 02/04/2024 WBC 3.70 - 11.00 k/uL 10.24 11.18 (H) RBC 4.20 - 6.00 m/uL 5.01 4.75 Hemoglobin 13.0 - 17.0 g/dL 14.1 13.5 Hematocrit 39.0 - 51.0 % 43.7 41.9 MCV 80.0 - 100.0 fL 87.2 88.2 MCH 26.0 - 34.0 pg 28.1 28.4 MCHC 30.5 - 36.0 g/dL 32.3 32.2 RDW-CV 11.5 - 15.0 % 13.9 12.9 Platelet Count 150 - 400 k/uL 280 256 MPV 9.0 - 12.7 fL 11.3 11.4 Neut% % 61.9 70.9 Abs Neut (ANC) 1.45 - 7.50 k/uL 6.34 7.91 (H) Lymph% % 22.6 14.2 Abs Lymph 1.00 - 4.00 k/uL 2.31 1.59 Shannon% % 11.1 11.1 Abs Shannon <0.87 k/uL 1.14 (H) 1.24 (H) Eosin% % 3.4 3.0 Abs Eosin <0.46 k/uL 0.35 0.34 Baso% % 0.5 0.4 Abs Baso <0.11 k/uL 0.05 0.05 Immature Gran % % 0.5 0.4 IMMATURE GRANS (ABS) <0.10 k/uL 0.05 0.05 NRBC /100 WBC 0.0 0.0 Absolute nRBC <0.01 k/uL <0.01 <0.01 DTYPE Auto Auto Protein, Total 6.3 - 8.0 g/dL 6.8 Albumin 3.9 - 4.9 g/dL 4.0 Calcium 8.5 - 10.2 mg/dL 9.8 9.4 Bilirubin, Total 0.2 - 1.3 mg/dL 0.3 Alkaline Phosphatase 38 - 113 U/L 78 AST 14 - 40 U/L 22 ALT 10 - 54 U/L 19 Glucose 74 - 99 mg/dL 117 (H) 150 (H) BUN 9 - 24 mg/dL 25 (H) 26 (H) Creatinine 0.73 - 1.22 mg/dL 1.06 0.90 Sodium 136 - 144 mmol/L 135 (L) 135 (L) Potassium 3.7 - 5.1 mmol/L 4.3 4.8 Chloride 97 - 105 mmol/L 100 98 CO2 22 - 30 mmol/L 24 21 (L) Anion Gap 9 - 18 mmol/L 11 16 eGFR >=60 mL/min/1.73m? 71 87 Cholesterol, Total <200 mg/dL 118 Triglyceride <150 mg/dL 131 HDL Cholesterol >39 mg/dL 37 (L) Non HDL Cholesterol <130 mg/dL 81 Fasting Time hrs 12 VLDL Cholesterol <30 mg/dL 26 TC:HDL Ratio <5.10 3.19 LDL Cholesterol <100 mg/dL 55 LDL:HDL Ratio <2.54 1.49 Creatinine, Ur Random (UCRR) 20.0 - 300.0 mg/dL 61.6 Albumin, Urine Random mg/L <12.0 Albumin/Creat Ratio <30 mg/g <19 Hemoglobin A1C 4.3 - 5.6 % 8.0 (H) Estimated Average Glucose mg/dL 183 NT Pro BNP <450 pg/mL 83 TSH 0.270 - 4.200 mIU/L 1.670 HISTORIES FAMILY HISTORY Problem Relation Age of [...] Types: Cigarettes Quit date: 09/17/1980 Years since quitting (more content not included)... Normal [facility] NT-proBNP [facility] 02-27 Natriuretic peptide.B prohormone N-Terminal [Mass/Vol] 142 pg/mL Normal <450 [facility] Comment on above: Order Comment: Speci men Type: BLOOD SPECIMENOrdering Facility: [facility] Address: [address] [place] [address] Performed By: #### 2 4321-2, 31887-1 ####[facility] LABCLIA [id number] [facility] [id number] [place] [address] OF [facility] XR Chest PA and Lateralon IMPRESSION: No developing abnormality or acute process Hog Killer: [facility] Transcribe Date/Time: Feb 05 2024 8:15A Dictated by : TRES CARSON MD This examination was interpreted and the report reviewed and electronically signed by: TRES CARSON MD on Feb 05 2024 8:16AM [facility] DIVISION OF RADIOLOGY * * *Final Report* * * DATE OF EXAM: Feb 04 2024 12:26PM WOX [id number] - XR CHEST 2V FRONTAL/LAT / PROCEDURE REASON: multiple diagnoses * * * * Physician Interpretation * * * * EXAMINATION: CHEST RADIOGRAPH (2 VIEW FRONTAL & LATERAL) CLINICAL HISTORY: SOB (shortness of breath) Bilateral leg edema MQ: XC2_6 EXAM DATE/TIME: 02/04/2024 12:26 PM COMPARISON: 09/06/2023 RESULT: Lines, tubes, and devices: None. Lungs and pleura: No consolidation. No lung mass. No pleural effusion. No pneumothorax. Minimal stable atelectasis or fibrosis at the lung bases. Mild stable coarsening of the lung markings. Cardiomediastinal silhouette: Stable cardiomediastinal silhouette. Bones and soft tissues: Multilevel degenerative change and osteophytosis. DIVISION OF RADIOLOGY Provider, [facility] Joel Barahona - 02/05/2024 * * *Final Report* * * DATE OF EXAM: Feb 04 2024 12:26PM WOX [id number] - XR CHEST 2V FRONTAL/LAT / PROCEDURE REASON: multiple diagnoses * * * * Physician Interpretation * * * * EXAMINATION: CHEST RADIOGRAPH (2 VIEW FRONTAL & LATERAL) CLINICAL HISTORY: SOB (shortness of breath) Bilateral leg edema MQ: XC2_6 EXAM DATE/TIME: 02/04/2024 12:26 PM COMPARISON: 09/06/2023 RESULT: Lines, tubes, and devices: None. Lungs and pleura: No consolidation. No lung mass. No pleural effusion. No pneumothorax. Minimal stable atelectasis or fibrosis at the lung bases. Mild stable coarsening of the lung markings. Cardiomediastinal silhouette: Stable cardiomediastinal silhouette. Bones and soft tissues: Multilevel degenerative change and osteophytosis. IMPRESSION IMPRESSION: No developing abnormality or acute process Hog Killer: [facility] Transcribe Date/Time: Feb 05 2024 8:15A Dictated by : TRES CARSON MD This examination was interpreted and the report reviewed and electronically signed by: TRES CARSON MD on Feb 05 2024 8:16AM EST [facility] XR Chest PA and LateralOrder ed By: [facility] Provider on 02-05-2024 [facility] CBC W Auto Differential pane l (Bld)on 02-04-2024 Basophils (Bld) [#/Vol] 0.05 10*3/uL [facility] Basophils/100 WBC (Bld) 0.4 % [facility] Differential cell count method Nom (Bld) Auto [facility] Eosinophils (Bld) [#/Vol] 0.34 10*3/uL [facility] Eosinophils/100 WBC (Bld) 3.0 % [facility] Erythrocyte distribution width (RBC) [Ratio] 12.9 % 11.5 - 15.0 % [facility] Hematocrit (Bld) [Volume fraction] 41.9 % 39.0 - 51.0 % [facility] Hemoglobin (Bld) [Mass/Vol] 13.5 g/dL 13.0 - 17.0 g/dL [facility] Immature granulocytes (Bld) [#/Vol] 0.05 10*3/uL [facility] Immature granulocytes/100 WBC (Bld) 0.4 % [facility] Interpretation and review of laboratory results Abnormal [facility] Lymphocytes (Bld) [#/Vol] 1.59 10*3/uL [facility] Lymphocytes/100 WBC (Bld) 14.2 % [facility] MCH (RBC) [Entitic mass] 28.4 pg 26.0 - 34.0 pg [facility] MCHC (RBC) [Mass/Vol] 32.2 g/dL 30.5 - 36.0 g/dL [facility] MCV (RBC) [Entitic vol] 88.2 fL 80.0 - 100.0 fL [facility] Monocytes (Bld) [#/Vol] 1.24 10*3/uL High NINF [facility] Monocytes/100 WBC (Bld) 11.1 % [facility] Neutrophils (Bld) [#/Vol] 7.91 10*3/uL High [facility] Neutrophils/100 WBC (Bld) 70.9 % [facility] Nucleated RBC (Bld) [#/Vol] NINF [facility] Nucleated RBC/100 WBC (Bld) [Ratio] 0.0 % /100 WBC [facility] Platelet mean volume (Bld) [Entitic vol] 11.4 fL 9.0 - 12.7 fL [facility] Platelets (Bld) [#/Vol] 256 10*3/uL [facility] RBC (Bld) [#/Vol] 4.75 10*6/uL 4.20 - 6.0 0 m/uL [facility] WBC (Bld) [#/Vol] 11.18 10*3/uL High [facility] Basophils (Bld) [#/Vol] 0.05 10*3/uL Normal <0.11 [facility] Comment on above: Order Comment: Speci men Type: BLOOD SPECIMENOrdering Facility: [facility] Address: [address] [place] [address] Performed By: #### 5 7021-8 ####[facility] LABCLIA [id number] [place] [address] [place] Basophils/100 WBC (Bld) 0.4 % Normal [facility] Comment on above: Order Comment: Speci men Type: BLOOD SPECIMENOrdering Facility: [facility] Address: [address] [place] [address] Performed By: #### 5 7021-8 ####[facility] LABCLIA [id number] [place] [address] [place] Differential cell count method Nom (Bld) Auto Normal [facility] Comment on above: Order Comment: Speci men Type: BLOOD SPECIMENOrdering Facility: [facility] Address: [address] [place] [address] Performed By: #### 5 7021-8 ####[facility] LABCLIA [id number] [place] [address] [place] Eosinophils (Bld) [#/Vol] 0.34 10*3/uL Normal <0.46 [facility] Comment on above: Order Comment: Speci men Type: BLOOD SPECIMENOrdering Facility: [facility] Address: [address] [place] [address] Performed By: #### 5 7021-8 ####[facility] LABIA [id number] [place] [address] [place] Eosinophils/100 WBC (Bld) 3.0 % Normal [facility] Comment on above: Order Comment: Speci men Type: BLOOD SPECIMENOrdering Facility: [facility] Address: [address] [place] [address] Performed By: #### 5 7021-8 ####[facility] LABIA [id number] [place] [address] [place] Erythrocyte distribution width (RBC) [Ratio] 12.9 % Normal 11.5-15.0 [facility] Comment on above: Order Comment: Speci men Type: BLOOD SPECIMENOrdering Facility: [facility] Address: [address] [place] [address] Performed By: #### 5 7021-8 ####[facility] LABIA [id number] [place] [address] [place] Hematocrit (Bld) [Volume fraction] 41.9 % Normal 39.0-51.0 [facility] Comment on above: Order Comment: Speci men Type: BLOOD SPECIMENOrdering Facility: [facility] Address: [address] [place] [address] Performed By: #### 5 7021-8 ####[facility] LABCLIA [id number] [place] [address] [place] Hemoglobin (Bld) [Mass/Vol] 13.5 g/dL Normal 13.0-17.0 [facility] Comment on above: Order Comment: Speci men Type: BLOOD SPECIMENOrdering Facility: [facility] Address: [address] [place] [address] Performed By: #### 5 7021-8 ####[facility] LABCLIA [id number] [place] [address] [place] Immature granulocytes (Bld) [#/Vol] 0.05 10*3/uL Normal <0.10 [facility] Comment on above: Order Comment: Speci men Type: BLOOD SPECIMENOrdering Facility: [facility] Address: [address] [place] [address] Performed By: #### 5 7021-8 ####[facility] LABIA [id number] [place] [address] [place] Immature granulocytes/100 WBC (Bld) 0.4 % Normal [facility] Comment on above: Order Comment: Speci men Type: BLOOD SPECIMENOrdering Facility: [facility] Address: [address] [place] [address] Performed By: #### 5 7021-8 ####[facility] LABIA [id number] [place] [address] [place] Lymphocytes (Bld) [#/Vol] 1.59 10*3/uL Normal 1.00-4.00 [facility] Comment on above: Order Comment: Speci men Type: BLOOD SPECIMENOrdering Facility: [facility] Address: [address] [place] [address] Performed By: #### 5 7021-8 ####[facility] LABIA [id number] [place] [address] [place] Lymphocytes/100 WBC (Bld) 14.2 % Normal [facility] Comment on above: Order Comment: Speci men Type: BLOOD SPECIMENOrdering Facility: [facility] Address: [address] [place] [address] Performed By: #### 5 7021-8 ####[facility] LABIA [id number] [place] [address] [place] MCH (RBC) [Entitic mass] 28.4 pg Normal 26.0-34.0 [facility] Comment on above: Order Comment: Speci men Type: BLOOD SPECIMENOrdering Facility: [facility] Address: [address] [place] [address] Performed By: #### 5 7021-8 ####[facility] LABIA [id number] [place] [address] [place] MCHC (RBC) [Mass/Vol] 32.2 g/dL Normal 30.5-36.0 [facility] Comment on above: Order Comment: Speci men Type: BLOOD SPECIMENOrdering Facility: [facility] Address: [address] [place] [address] Performed By: #### 5 7021-8 ####[facility] LABIA [id number] [place] [address] [place] MCV (RBC) [Entitic vol] 88.2 fL Normal 80.0-100.0 [facility] Comment on above: Order Comment: Speci men Type: BLOOD SPECIMENOrdering Facility: [facility] Address: [address] [place] [address] Performed By: #### 5 7021-8 ####[facility] LABIA [id number] [place] [address] [place] Monocytes (Bld) [#/Vol] 1.24 10*3/uL High <0.87 [facility] Comment on above: Order Comment: Speci men Type: BLOOD SPECIMENOrdering Facility: [facility] Address: [address] [place] [address] Performed By: #### 5 7021-8 ####[facility] LABCLIA [id number] [place] [address] [place] Monocytes/100 WBC (Bld) 11.1 % Normal [facility] Comment on above: Order Comment: Speci men Type: BLOOD SPECIMENOrdering Facility: [facility] Address: [address] [place] [address] Performed By: #### 5 7021-8 ####[facility] LABCLIA [id number] [place] [address] [place] Neutrophils (Bld) [#/Vol] 7.91 10*3/uL High 1.45-7.50 [facility] Comment on above: Order Comment: Speci men Type: BLOOD SPECIMENOrdering Facility: [facility] Address: [address] [place] [address] Performed By: #### 5 7021-8 ####[facility] LABCLIA [id number] [place] [address] [place] Neutrophils/100 WBC (Bld) 70.9 % Normal [facility] Comment on above: Order Comment: Speci men Type: BLOOD SPECIMENOrdering Facility: [facility] Address: [address] [place] [address] Performed By: #### 5 7021-8 ####[facility] LABCLIA [id number] [place] [address] [place] Nucleated RBC (Bld) [#/Vol] 10*3/uL Normal <0.01 [facility] Comment on above: Order Comment: Speci men Type: BLOOD SPECIMENOrdering Facility: [facility] Address: [address] [place] [address] Performed By: #### 5 7021-8 ####[facility] LABCLIA [id number] [place] [address] [place] Nucleated RBC/100 WBC (Bld) [Ratio] 0.0 /100 WBC Normal [facility] Comment on above: Order Comment: Speci men Type: BLOOD SPECIMENOrdering Facility: [facility] Address: [address] [place] [address] Performed By: #### 5 7021-8 ####[facility] LABCLIA [id number] [place] [address] [place] Platelet mean volume (Bld) [Entitic vol] 11.4 fL Normal 9.0-12.7 [facility] Comment on above: Order Comment: Speci men Type: BLOOD SPECIMENOrdering Facility: [facility] Address: [address] [place] [address] Performed By: #### 5 7021-8 ####[facility] LABCLIA [id number] [place] [address] [place] Platelets (Bld) [#/Vol] 256 10*3/uL Normal 150-400 [facility] Comment on above: Order Comment: Speci men Type: BLOOD SPECIMENOrdering Facility: [facility] Address: [address] [place] [address] Performed By: #### 5 7021-8 ####[facility] LABCLIA [id number] [place] [address] [place] RBC (Bld) [#/Vol] 4.75 10*6/uL Normal 4.20-6.00 [facility] Comment on above: Order Comment: Speci men Type: BLOOD SPECIMENOrdering Facility: [facility] Address: [address] [place] [address] Performed By: #### 5 7021-8 ####[facility] LABCLIA [id number] [place] [address] [place] WBC (Bld) [#/Vol] 11.18 10*3/uL High 3.70-11.00 [facility] Comment on above: Order Comment: Speci men Type: BLOOD SPECIMENOrdering Facility: [facility] Address: [address] [place] [address] Performed By: #### 5 7021-8 ####[facility] LABCLIA [id number] [place]EN [id number] [id number] [place] [facility] CNOVon 02-04-2024 CNOV Office Visit (FAMPWS ) -------- FAISAL ALARCON ([id number]) 1945 M Date Time Provider Department 02/04/24 11:20 AM [facility] visit today, we recorded the following information about you: Pulse Respiration Blood pressure Weight 73/minute 18/minute 113/69 134.7 kg Osvaldo Travis PA-C 02/04/2024 1:25 PM Signed 78 year old male with hx non-obstructive coronary artery disease, HTN, pAF on anticoag, restrictive lung disease c/o swelling in both legs over last three days SOB if he tries to do anything, nothing new- attributes to beta salvador. Sleeps in bed, one pillow, usually lays on right side No chest/ neck/ shoulder or arm pain Not feeling weak. No recent colds or infections. No lower leg pain or tenderness 500 feet walking with dyspnea- not new. Sees [facility], last visit 10/24/2023: Notes identified paroxysmal atrial fibrillation appears stable, continue same medications, discussed repeating echo and stress EKG, no other changes. 09/22/2023 twelve-lead ECG: Normal sinus rhythm first-degree AV block 86 bpm, RBBB, QRS 156 11/21/2022 stress test negative for ischemia 01/27/2021 echocardiogram: LV size WNL, mild concentric LVH, LV SF WNL: EF 65?5%, grade 1 LVDD RV normal in size and RV SF, insufficient TR to estimate RVSP. 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 Dx: Type 2 DM - Controlled E11.9 Insulin: Yes 200 Strip 3 albuterol HFA (VENTOLIN HFA) 90 mcg/actuation inhaler Inhale 2 Puffs as instructed every 4 hours as needed. 1 Each 1 famotidine (PEPCID) 20 mg tablet Take 1 tablet by mouth two times a day. 180 tablet 1 ELIQUIS 5 mg tab(s) Take 1 tablet by mouth two times a day. 60 tablet 1 diclofenac (VOLTAREN ARTHRITIS PAIN) 1 % topical gel Apply 2 g to affected area four times daily. 240 g 11 insulin lispro (HUMALOG KWIKPEN INSULIN) 100 unit/mL Inject 20 Units subcutaneously three times a day before meals. Getting through [facility] 5 Each 1 dilTIAZem CD (CARDIZEM CD, CARTIA XT) 120 mg 24 hr capsule Take 1 capsule by mouth once daily. 90 capsule 3 losartan-hydroCHLOROthia zide (HYZAAR) 100-12.5 mg per tablet Take 1 tablet by mouth once daily. 90 tablet 1 spironolactone (ALDACTONE) 25 mg tablet Take 1 tablet by mouth once daily. 90 tablet 1 carvedilol (COREG) 25 mg tablet Take 1 tablet by mouth two times a day. 180 tablet 1 metFORMIN ER (GLUCOPHAGE XR) 500 mg 24 hr tablet Take 2 tablets by mouth two times a day before meals. 360 tablet 3 simvastatin (ZOCOR) 40 mg tablet Take 1 tablet by mouth daily at bedtime. 90 tablet 3 colestipol (COLESTID) 1 gram tablet Take 1 tablet by mouth (more content not included)... Normal [facility] Comprehensive metabolic 2000 panelon 02-04-2024 Albumin [Mass/Vol] 4.0 g/dL Normal 3.9-4.9 [facility] Comment on above: Order Comment: Speci men Type: BLOOD SPECIMENOrdering Facility: [facility] Address: [address] [place] [address] Performed By: #### 3 3762-6, 70886-3, 3016-3 ####[facility] LABCLIA [id number] [place] [address] [place] ALP [Catalytic activity/Vol] 78 U/L Normal 38-113 [facility] Comment on above: Order Comment: Speci men Type: BLOOD SPECIMENOrdering Facility: [facility] Address: [address] [place] [address] Performed By: #### 3 3762-6, 81693-8, 3016-3 ####[facility] LABCLIA [id number] [place] [address] [place] ALT [Catalytic activity/Vol] 19 U/L Normal 10-54 [facility] Comment on above: Order Comment: Speci men Type: BLOOD SPECIMENOrdering Facility: [facility] Address: [address] [place] [address] Performed By: #### 3 3762-6, 46083-6, 3016-3 ####[facility] LABIA [id number] [place] [address] [place] Anion gap [Moles/Vol] 16 mmol/L Normal 9-18 [facility] Comment on above: Order Comment: Speci men Type: BLOOD SPECIMENOrdering Facility: [facility] Address: [address] [place] [address] Performed By: #### 3 3762-6, 53685-9, 3016-3 ####[facility] [id number] [place] [address] [place] AST [Catalytic activity/Vol] 22 U/L Normal 14-40 [facility] Comment on above: Order Comment: Speci men Type: BLOOD SPECIMENOrdering Facility: [facility] Address: [address] [place] [address] Result Comment: Resu lts may be falsely increased due to interference from hemolysis. Suggest reorder as clinically indicated. Performed By: #### 3 3762-6, 94008-2, 3016-3 ####[facility] LABIA [id number] [place] [address] [place] Bilirubin [Mass/Vol] 0.3 mg/dL Normal 0.2-1.3 [facility] Comment on above: Order Comment: Speci men Type: BLOOD SPECIMENOrdering Facility: [facility] Address: [address] [place] [address] Performed By: #### 3 3762-6, 25964-8, 6-3 ####[facility] LABCLIA [id number] [address] [address] [place] Calcium [Mass/Vol] 9.4 mg/dL Normal 8.5-10.2 [facility] Comment on above: Order Comment: Speci men Type: BLOOD SPECIMENOrdering Facility: [facility] Address: [address] [place], [place] [address] Performed By: #### 3 3762-6, 74584-5, 6-3 ####[facility] LABCLIA [id number] [place] [address] [place] Chloride [Moles/Vol] 98 mmol/L Normal 97-105 [facility] Comment on above: Order Comment: Speci men Type: BLOOD SPECIMENOrdering Facility: [facility] Address: [address] [place], [place] [address] Performed By: #### 3 3762-6, 44438-2, 6-3 ####[facility] LABCLIA [id number] [place] [address] [place] CO2 [Moles/Vol] 21 mmol/L Low 22-30 [facility] Comment on above: Order Comment: Speci men Type: BLOOD SPECIMENOrdering Facility: [facility] Address: [address] [place], [place] [address] Performed By: #### 3 3762-6, 17002-7, 6-3 ####[facility] LABCLIA [id number] [address] [address] [place] Creatinine [Mass/Vol] 0.90 mg/dL Normal 0.73-1.22 [facility] Comment on above: Order Comment: Speci men Type: BLOOD SPECIMENOrdering Facility: [facility] Address: [address] [place], [place] [address] Performed By: #### 3 3762-6, 51436-2, 3016-3 ####[facility] LABCLIA [id number] [place] [address] [place] Creatinine and Glomerular filtration rate.predicted panel (S/P/Bld) 87 mL/min/1.73m??? Normal >=60 [facility] Comment on above: Order Comment: Salvatore de la rosa Type: BLOOD SPECIMENOrdering Facility: [facility] Address: [address] [place] [address] Result Comment: Racquel mated Glomerular Filtration Rate (eGFR) is calculated using the 2020 CKD-EPI creatinine equation. This equation utilizes serum creatinine, sex, and age as parameters. The creatinine assay has traceable calibration to isotope dilution-mass spectrometry. Refer to KDIGO guidelines for clinical interpretation. In patients with unstable renal function, e.g. those with acute kidney injury, the eGFR may not accurately reflect actual GFR. Performed By: #### 3 3762-6, 28739-9, 3015-3 ####[facility] LABIA [id number] [place] [address] [place] Glucose [Mass/Vol] 150 mg/dL High 74-99 [facility] Comment on above: Order Comment: Salvatore de la rosa Type: BLOOD SPECIMENOrdering Facility: [facility] Address: [address] [place] [address] Result Comment: The [place] Diabetes [employer] (ADA) provides guidance for cutoff values for fasting glucose and random glucose. The ADA defines fasting as no caloric intake for at least 8 hours. Fasting plasma glucose results between 100 to 125 mg/dL indicate increased risk for diabetes (prediabetes). Fasting plasma glucose results greater than or equal to 126 mg/dL meet the criteria for diagnosis of diabetes. In the absence of unequivocal hyperglycemia, results should be confirmed by repeat testing. In a patient with classic symptoms of hyperglycemia or hyperglycemic crisis, random plasma glucose results greater than or equal to 200 mg/dL meet the criteria for diagnosis of diabetes. Reference: Standards of Medical Care in Diabetes 2016, [place] Diabetes Association. Diabetes Care. 2016.39(Suppl 1). Performed By: #### 3 3762-6, 70005-1, 3015-3 ####[facility] LABCLIA [id number] [address] [address] [place] Potassium [Moles/Vol] 4.8 mmol/L Normal 3.7-5.1 [facility] Comment on above: Order Comment: Speci men Type: BLOOD SPECIMENOrdering Facility: [facility] Address: [address] [place] [address] Performed By: #### 3 3762-6, 93947-4, 6-3 ####[facility] LABCLIA [id number] [place] [address] [place] Protein [Mass/Vol] 6.8 g/dL Normal 6.3-8.0 [facility] Comment on above: Order Comment: Speci men Type: BLOOD SPECIMENOrdering Facility: [facility] Address: [address] [place] [address] Performed By: #### 3 3762-6, 54709-5, 6-3 ####[facility] LABIA [id number] [place] [address] [place] Sodium [Moles/Vol] 135 mmol/L Low 136-144 [facility] Comment on above: Order Comment: Speci men Type: BLOOD SPECIMENOrdering Facility: [facility] Address: [address] [place] [address] Performed By: #### 3 3762-6, 39421-9, 6-3 ####[facility] LABIA [id number] [place] [id number] [place] Urea nitrogen [Mass/Vol] 26 mg/dL High 9-24 [facility] Comment on above: Order Comment: Speci men Type: BLOOD SPECIMENOrdering Facility: [facility] Address: [address] [place] [address] Performed By: #### 3 3762-6, 49735-9, 3016-3 ####[facility] LABIA [id number] [place] ECG COMPLETEon 02-04-2024 ECG COMPLETE Ventricular Rate : 7 2 BPM Atrial Rate : 72 BPM P-R Interval : 240 ms QRS Duration : 168 ms Q-T Interval : 446 ms QTC Calculation(Bazett) : 488 ms Calculated P [place] : 7 degrees Calculated R [place] : -77 degrees Calculated T [place] : 17 degrees SINUS RHYTHM WITH 1ST DEGREE AV BLOCK COMPLETE RIGHT BUNDLE BRANCH BLOCK LEFT ANTERIOR FASCICULAR BLOCK BIFASCICULAR BLOCK ABNORMAL ECG Confirmed by MD VICKERS GREGORY () on 02/05/2024 8:19:01 AM NAME : FAISAL ALARCON PID : [id number] : 1945 Gender : Male Race : ORD : [id number] Procedure Date : Feb 04 2024 11:01:53 Edit Date : Feb 05 2024 08:19:07 Diagnosis: SINUS RHYTHM WITH 1ST DEGREE AV BLOCK COMPLETE RIGHT BUNDLE BRANCH BLOCK LEFT ANTERIOR FASCICULAR BLOCK BIFASCICULAR BLOCK ABNORMAL ECG Confirmed by MD VICKERS GREGORY () on 02/05/2024 8:19:01 AM Test Reason : R06.02 SOB (shortness of breath) Location : 185 : [facility] Overread By : MD VICKERS GREGORY Edited By : MD VICKERS GREGORY Referred By : , Acquired by : , Normal [facility] NT-proBNP SerPl-mCncon 02-03 Natriuretic peptide.B prohormone N-Terminal [Mass/Vol] 83 pg/mL Normal <450 [facility] Comment on above: Order Comment: Speci men Type: BLOOD SPECIMENOrdering Facility: [facility] Address: [address] [place] [address] Performed By: #### 3 3762-6, 36998-3, 3016-3 ####[facility] LABCLIA [id number] [place] [address] [place] TSH SerPl-aCncon 02-04-2024 TSH Qn 1.670 m[IU]/L Normal 0.270-4.200 [facility] Comment on above: Order Comment: Speci men Type: BLOOD SPECIMENOrdering Facility: [facility] Address: [address] [place] [address] Performed By: #### 3 3762-6, 13491-7, 3016-3 ####[facility] LABCLIA [id number] [facility] [id number] [address] [place] XR CHEST 2V FRONTAL/LATon XR CHEST 2V FRONTAL/LAT * * *Final Report* * * DATE OF EXAM: Feb 04 2024 12:26PM WOX [id number] - XR CHEST 2V FRONTAL/LAT / PROCEDURE REASON: multiple diagnoses * * * * Physician Interpretation * * * * EXAMINATION: CHEST RADIOGRAPH (2 VIEW FRONTAL and LATERAL) CLINICAL HISTORY: SOB (shortness of breath) Bilateral leg edema MQ: XC2_6 EXAM DATE/TIME: 02/04/2024 12:26 PM COMPARISON: 09/06/2023 RESULT: Lines, tubes, and devices: None. Lungs and pleura: No consolidation. No lung mass. No pleural effusion. No pneumothorax. Minimal stable atelectasis or fibrosis at the lung bases. Mild stable coarsening of the lung markings. Cardiomediastinal silhouette: Stable cardiomediastinal silhouette. Bones and soft tissues: Multilevel degenerative change and osteophytosis. IMPRESSION: No developing abnormality or acute process Hog Killer: BERNIE Transcribe Date/Time: Feb 05 2024 8:15A Dictated by : TRES CARSON MD This examination was interpreted and the report reviewed and electronically signed by: TRES CARSON MD on Feb 05 2024 8:16AM EST [id number] Normal [facility] XR Chest PA and Lateralon Radiology Study observation (narrative) [facility] CNCOon 01-01-2024 CNCO Letter Text Normal [facility] CNPNon 01-01-2024 CNPN Telephone ([facility]) -------- FAISAL ALARCON ([id number]) 1945 M Date Time Provider Department 01/01/24 JEFF VIRGEN During your visit today, we recorded the following information about you: Osvaldo Regalado, RN 01/01/2024 12:11 PM Signed Daughter, Loan, reports she spoke with [employer] insurance, who informed her pcp would need to write a Prior Auth letter stating condition and diagnoses, and specify patient needs a lite weight, and fax [facility] at fax # [phone]. [facility] would then decide if they will cover it. Please phone Loan with any questions. Jeff Virgen MD 01/01/2024 2:12 PM Signed See other note Allergies As of Date: 01/01/2024 Noted Allergy Reaction AMOXICILLIN 05/11/2005 Comments: generalized erythema Date Reviewed: 12/25/2023 Reviewed by: Alice Haji MA - Fully Assessed Reason for Visit: Epi Gonzalez PA letter [Other] Prescriptions as of 01/01/2024 - diclofenac (VOLTAREN ARTHRITIS PAIN) 1 % topical gel Apply 2 g to affected area four times daily. - insulin lispro (HUMALOG KWIKPEN INSULIN) 100 unit/mL Inject 20 Units subcutaneously three times a day before meals. Getting through [facility] - ELIQUIS 5 mg tab(s) Take 1 tablet by mouth two times a day. - dilTIAZem CD (CARDIZEM CD, CARTIA XT) 120 mg 24 hr capsule Take 1 capsule by mouth once daily. - losartan-hydroCHLOROthia zide (HYZAAR) 100-12.5 mg per tablet Take 1 tablet by mouth once daily. - spironolactone (ALDACTONE) 25 mg tablet Take 1 tablet by mouth once daily. - carvedilol (COREG) 25 mg tablet Take 1 tablet by mouth two times a day. - metFORMIN ER (GLUCOPHAGE XR) 500 mg 24 hr tablet Take 2 tablets by mouth two times a day before meals. - simvastatin (ZOCOR) 40 mg tablet Take 1 tablet by mouth daily at bedtime. - flecainide (TAMBOCOR) 150 mg tablet Take 1 tablet by mouth every 12 hours. Prescribed by outside fundraising specialist - albuterol HFA (VENTOLIN HFA) 90 mcg/actuation inhaler Inhale 2 Puffs as instructed every 4 hours as needed. - colestipol (COLESTID) 1 gram tablet Take 1 tablet by mouth once daily. - insulin glargine (BASAGLAR KWIKPEN U-100 INSULIN) 100 unit/mL (3 mL) Inject 90 Units subcutaneously daily at bedtime. - finasteride (PROSCAR) 5 mg tablet - aspirin 81 mg chewable tablet Take 81 mg by mouth once daily. - insulin needles, DISPOSABLE, (1ST TIER UNIFINE PENTIPS) 31 gauge x 5/16 ndle 1 Each once daily. DX: E11.9 Insulin: Yes - Insulin Syringe-Needle U-100 1/2 mL 29 [...] of 08/20/2013: Problem List As Of Date 01/01/2024 Noted Resolved OTHER PSORIASIS [L40.8] 05/11/2005 Essential hypertension [I10] 05/11/2005 Morbid obesity (HCC) [E66.01] 05/11/2005 06/06/2023 Paranoid schizophrenia, subchronic condition wi*05/11/2005 04/23/2017 Type 2 diabetes mellitus with microalbuminuria *05/11/2005 Pure hypercholesterolemia [E78.00] 06/13/2005 06/06/2023 Sciatica [M54.30] 06/15/2005 05/06/2021 LUMB DISC DIS W MYELOPAT [M51.06] 09/22/2005 Sleep apnea [G47.30] 03/31/2009 Nonspecific abnormal results of liver function *03/31/2009 03/03/2022 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/24/2009 Low HDL (under 40) [E78.6] 06/09/2011 06/06/2023 Tubular adenoma of colon [D12.6] 06/02/2015 Schizophrenia, chronic condition (HCC) [F20.9] 04/23/2017 Obesity, Class II, BMI 35-39.9 [E66.9] 01/31/2021 SOB (shortness of breath) [R06.02] 01/31/2021 05/06/2021 Abnormal EKG [R94.31] 01/31/2021 05/06/2021 Paroxysmal atrial fibrillation (HCC) [I48.0] 02/15/2021 Chronic anticoagulation [Z79.01] 02/15/2021 Acute cholecystitis [K81.0] 06/06/2023 06/06/2023 Acute respiratory failure (HCC) [J96.00] 06/06/2023 06/06/2023 History of atrial fibrillation [Z86.79] 06/06/2023 06/06/2023 History of colonic polyps [Z86.010] 06/06/2023 Hyperlipidemia [E78.5] 06/06/2023 Left lower lobe pneumonia [J18.9] 06/06/2023 06/06/2023 Mild dehydration [E86.0] 04/04/2023 06/06/2023 Nausea [R11.0] 03/06/2023 06/06/2023 Nonobstructive atherosclerosis of coronary luis*06/06/2023 Abdominal pain [R10.9] 08/18/2022 06/06/2023 Restrictive lung disease [J98.4] 06/06/2023 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 CNCOon 12-25-2023 CNCO Letter Text Normal [facility] CNOVon 12-25-2023 CNOV Office Visit ([facility] ) -------- FAISAL ALARCON ([id number]) 1945 M Date Time Provider Department 12/25/23 1:40 PM EJFF VIRGEN During your visit today, we recorded the following information about you: Pulse Respiration Blood pressure Weight 73/minute 18/minute 122/80 130.2 kg Jeff Virgen MD 12/25/2023 2:10 PM Signed Patient presents with: F/U 6 months HPI: Patient presents today for office visit for follow up. Still with hip pain. Has psoriatic arthritis. Was using oral ibu. Advised to avoid oral antiinflammatories. Rec rheum vs ortho vs therapy. Declines all of them. Bp is good. No chest pain No new shortness of breath. Has seen pulmonary. Sugars are up but he had decreased his humalog when he should not have to avoid lows. It is still 8 which is probably ok given his age. Sugars are doing better since have adjusted meds. Still seeing cardiology. No bleeding or bruising issues. See previous ov: HTN: Patient is compliant with meds Yes [...] fever or chills. No cough. No dizziness. Latest Ref Rng 11/28/2023 WBC 3.70 - 11.00 k/uL 10.24 RBC 4.20 - 6.00 m/uL 5.01 Hemoglobin 13.0 - 17.0 g/dL 14.1 Hematocrit 39.0 - 51.0 % 43.7 MCV 80.0 - 100.0 fL 87.2 MCH 26.0 - 34.0 pg 28.1 MCHC 30.5 - 36.0 g/dL 32.3 RDW-CV 11.5 - 15.0 % 13.9 Platelet Count 150 - 400 k/uL 280 MPV 9.0 - 12.7 fL 11.3 Neut% % 61.9 Abs Neut (ANC) 1.45 - 7.50 k/uL 6.34 Lymph% % 22.6 Abs Lymph 1.00 - 4.00 k/uL 2.31 Shannon% % 11.1 Abs Shannon <0.87 k/uL 1.14 (H) Eosin% % 3.4 Abs Eosin <0.46 k/uL 0.35 Baso% % 0.5 Abs Baso <0.11 k/uL 0.05 Immature Gran % % 0.5 IMMATURE GRANS (ABS) <0.10 k/uL 0.05 NRBC /100 WBC 0.0 Absolute nRBC <0.01 k/uL <0.01 DTYPE Auto Glucose 74 - 99 mg/dL 117 (H) BUN 9 - 24 mg/dL 25 (H) Creatinine 0.73 - 1.22 mg/dL 1.06 Sodium 136 - 144 mmol/L 135 (L) Potassium 3.7 - 5.1 mmol/L 4.3 Chloride 97 - 105 mmol/L 100 CO2 22 - 30 mmol/L 24 Anion Gap 9 - 18 mmol/L 11 Calcium 8.5 - 10.2 mg/dL 9.8 eGFR >=60 mL/min/1.73m? 71 Cholesterol, Total <200 mg/dL 118 Triglyceride <150 mg/dL 131 HDL Cholesterol >39 mg/dL 37 (L) Non HDL Cholesterol <130 mg/dL 81 Fasting Time hrs 12 VLDL Cholesterol <30 mg/dL 26 TC:HDL Ratio <5.10 3.19 LDL Cholesterol <100 mg/dL 55 LDL:HDL Ratio <2.54 1.49 Creatinine, Ur Random (UCRR) 20.0 - 300.0 mg/dL 61.6 Albumin, Urine Random mg/L <12.0 Albumin/Creat Ratio <30 mg/g <19 Hemoglobin A1C 4.3 - 5.6 % 8.0 (H) Estimated Average Glucose mg/dL 183 Legend: (H) High (L) Low MEDICATIONS: Current Outpatient Medications Medication Sig ELIQUIS 5 mg tab(s) Take 1 tablet by mouth two times a day. dilTIAZem CD (CARDIZEM CD, CARTIA XT) 120 mg 24 hr capsule Take 1 capsule by mouth once daily. losartan-hydroCHLOROthia zide (HYZAAR) 100-12.5 mg per tablet Take 1 tablet by mouth once daily. spironolactone (ALDACTONE) 25 mg tablet Take 1 tablet by mouth once daily. carvedilol (COREG) 25 mg tablet Take 1 tablet by mouth two times a day. metFORMIN ER (GLUCOPHAGE XR) 500 mg 24 hr tablet Take 2 tablets by mouth two times a day before meals. simvastatin (ZOCOR) 40 mg tablet Take 1 tablet by mouth daily at bedtime. albuterol HFA (VENTOLIN HFA) 90 mcg/actuation inhaler Inhale 2 Puffs as instructed every 4 hours as needed. colestipol (COLESTID) 1 gram tablet Take 1 tablet by mouth once daily. insulin lispro (HUMALOG KWIKPEN INSULIN) 100 unit/mL Inject 22 Units subcutaneously three times daily before meals. Getting through [facility] (Patient taking differently: Inject 26 Units subcutaneously three times a day before meals. Getting through [facility]) insulin glargine (BASAGLAR KWIKPEN U-100 INSULIN) 100 unit/mL (3 mL) Inject 90 Units subcutaneously daily at bedtime. finasteride (PROSCAR) 5 mg [...] 2, insulin dependent. Lancets (ACCU-CHEK SOFTCLIX LANCETS) zbigniew (more content not included)... Normal [facility] ALBUMIN/CREAT RATIO RND URon 11-28-2023 Albumin DL <= 20 mg/L (U) [Mass/Vol] mg/dL Normal [facility] Comment on above: Order Comment: Speci men Type: URINE SPECIMENOrdering Facility: [facility] Address: [address] [place] [address] Performed By: #### U ACR ####[facility] LABCLIA [id number] [place] [address] [place] Albumin/Creatinine (U) [Mass ratio] <19 Normal <30 [facility] Comment on above: Order Comment: Speci men Type: URINE SPECIMENOrdering Facility: [facility] Address: [address] [place] [address] Result Comment: Adul t Male and Female Nephrotic Criteria: <30 mg/g is considered normal to mildly increased 30-300 mg/g is considered moderately increased >300 mg/g is considered severely increased KDIGO. (2013). KDIGO 2012 Clinical Practice Guideline for the Evaluation and Management of Chronic Kidney Disease. Official Journal of the International Society of Nephrology, 3(1), 1-150. Performed By: #### U ACR ####[facility] LABCLIA [id number] [place] [address] [place] Creatinine (U) [Mass/Vol] 61.6 mg/dL Normal 20.0-300.0 [facility] Comment on above: Order Comment: Speci men Type: URINE SPECIMENOrdering Facility: [facility] Address: [address] [place] [address] Performed By: #### U ACR ####[facility] LABCLIA [id number] [place] [address] [place] Basic metabolic 2000 panelon 11-28-2023 Anion gap [Moles/Vol] 11 mmol/L Normal 9-18 [facility] Comment on above: Order Comment: Speci men Type: BLOOD SPECIMENOrdering Facility: [facility] Address: [address] [place] [address] Performed By: #### 2 4331-1, 61465-3 ####[facility] LABCLIA [id number] [place] [address] [place] Calcium [Mass/Vol] 9.8 mg/dL Normal 8.5-10.2 [facility] Comment on above: Order Comment: Speci men Type: BLOOD SPECIMENOrdering Facility: [facility] Address: [address] [place] [address] Performed By: #### 2 4331-1, 30647-2 ####[facility] LABCLIA [id number] [place] [id number] [place] Chloride [Moles/Vol] 100 mmol/L Normal 97-105 [facility] Comment on above: Order Comment: Speci men Type: BLOOD SPECIMENOrdering Facility: [facility] Address: [address] [place] [address] Performed By: #### 2 4331-1, 65628-7 ####[facility] LABCLIA [id number] [place] [address] [place] CO2 [Moles/Vol] 24 mmol/L Normal 22-30 [facility] Comment on above: Order Comment: Speci men Type: BLOOD SPECIMENOrdering Facility: [facility] Address: [address] [place] [address] Performed By: #### 2 4331-1, 98039-9 ####[facility] LABCLIA [id number] [place] [address] [place] Creatinine [Mass/Vol] 1.06 mg/dL Normal 0.73-1.22 [facility] Comment on above: Order Comment: Speci men Type: BLOOD SPECIMENOrdering Facility: [facility] Address: [address] [place] [address] Performed By: #### 2 4331-1, 56228-1 ####[facility] LABIA [id number] [place] [address] [place] Creatinine and Glomerular filtration rate.predicted panel (S/P/Bld) 71 mL/min/1.73m??? Normal >=60 [facility] Comment on above: Order Comment: Speci men Type: BLOOD SPECIMENOrdering Facility: [facility] Address: [address] [place] [address] Result Comment: Racquel mated Glomerular Filtration Rate (eGFR) is calculated using the 2020 CKD-EPI creatinine equation. This equation utilizes serum creatinine, sex, and age as parameters. The creatinine assay has traceable calibration to isotope dilution-mass spectrometry. Refer to KDIGO guidelines for clinical interpretation. In patients with unstable renal function, e.g. those with acute kidney injury, the eGFR may not accurately reflect actual GFR. Performed By: #### 2 4331-1, 76250-3 ####[facility] LABCLIA [id number] [place] [address] [place] Glucose [Mass/Vol] 117 mg/dL High 74-99 [facility] Comment on above: Order Comment: Salvatore de la rosa Type: BLOOD SPECIMENOrdering Facility: [facility] Address: [address] [place] [address] Result Comment: The [place] Diabetes Association (ADA) provides guidance for cutoff values for fasting glucose and random glucose. The ADA defines fasting as no caloric intake for at least 8 hours. Fasting plasma glucose results between 100 to 125 mg/dL indicate increased risk for diabetes (prediabetes). Fasting plasma glucose results greater than or equal to 126 mg/dL meet the criteria for diagnosis of diabetes. In the absence of unequivocal hyperglycemia, results should be confirmed by repeat testing. In a patient with classic symptoms of hyperglycemia or hyperglycemic crisis, random plasma glucose results greater than or equal to 200 mg/dL meet the criteria for diagnosis of diabetes. Reference: Standards of Medical Care in Diabetes 2016, [place] Diabetes Association. Diabetes Care. 2016.39(Suppl 1). Performed By: #### 2 433-, 97817-5 ####[facility] LABCLIA [id number] [place] [address] [place] Potassium [Moles/Vol] 4.3 mmol/L Normal 3.7-5.1 [facility] Comment on above: Order Comment: Salvatore de la rosa Type: BLOOD SPECIMENOrdering Facility: [facility] Address: [address] [place] [address] Performed By: #### 2 4331-1, 27236-0 ####[facility] LABCLIA [id number] [place] [address] [place] Sodium [Moles/Vol] 135 mmol/L Low 136-144 [facility] Comment on above: Order Comment: Speci men Type: BLOOD SPECIMENOrdering Facility: [facility] Address: [address] [place] [address] Performed By: #### 2 4331-1, 94971-3 ####[facility] LABCLIA [id number] [place] [address] [place] Urea nitrogen [Mass/Vol] 25 mg/dL High 9-24 [facility] Comment on above: Order Comment: Speci men Type: BLOOD SPECIMENOrdering Facility: [facility] Address: [address] [place] [address] Performed By: #### 2 4331-1, 67943-7 ####[facility] LABCLIA [id number] [place] [address] [place] CBC W Auto Differential pane l (Bld)on 11-28-2023 Basophils (Bld) [#/Vol] 0.05 10*3/uL Normal <0.11 [facility] Comment on above: Order Comment: Speci men Type: BLOOD SPECIMENOrdering Facility: [facility] Address: [address] [place] [address] Performed By: #### 5 7021-8 ####[facility] LABCLIA [id number] [place] [address] [place] Basophils/100 WBC (Bld) 0.5 % Normal [facility] Comment on above: Order Comment: Speci men Type: BLOOD SPECIMENOrdering Facility: [facility] Address: [address] [place] [address] Performed By: #### 5 7021-8 ####[facility] LABCLIA [id number] [place] [address] [place] Differential cell count method Nom (Bld) Auto Normal [facility] Comment on above: Order Comment: Speci men Type: BLOOD SPECIMENOrdering Facility: [facility] Address: [address] [place] [address] Performed By: #### 5 7021-8 ####[facility] LABCLIA [id number] [place] [address] [place] Eosinophils (Bld) [#/Vol] 0.35 10*3/uL Normal <0.46 [facility] Comment on above: Order Comment: Speci men Type: BLOOD SPECIMENOrdering Facility: [facility] Address: [address] [place] [address] Performed By: #### 5 7021-8 ####[facility] LABCLIA [id number] [place] [address] [place] Eosinophils/100 WBC (Bld) 3.4 % Normal [facility] Comment on above: Order Comment: Speci men Type: BLOOD SPECIMENOrdering Facility: [facility] Address: [address] [place] [address] Performed By: #### 5 7021-8 ####[facility] LABCLIA [id number] [place] [address] [place] Erythrocyte distribution width (RBC) [Ratio] 13.9 % Normal 11.5-15.0 [facility] Comment on above: Order Comment: Speci men Type: BLOOD SPECIMENOrdering Facility: [facility] Address: [address] [place] [address] Performed By: #### 5 7021-8 ####[facility] LABCLIA [id number] [place] [address] [place] Hematocrit (Bld) [Volume fraction] 43.7 % Normal 39.0-51.0 [facility] Comment on above: Order Comment: Speci men Type: BLOOD SPECIMENOrdering Facility: [facility] Address: [address] [place] [address] Performed By: #### 5 7021-8 ####[facility] LABCLIA [id number] [address] [address] [place] Hemoglobin (Bld) [Mass/Vol] 14.1 g/dL Normal 13.0-17.0 [facility] Comment on above: Order Comment: Speci men Type: BLOOD SPECIMENOrdering Facility: [facility] Address: [address] [place] [address] Performed By: #### 5 7021-8 ####[facility] LABCLIA [id number] [place] [address] [place] Immature granulocytes (Bld) [#/Vol] 0.05 10*3/uL Normal <0.10 [facility] Comment on above: Order Comment: Speci men Type: BLOOD SPECIMENOrdering Facility: [facility] Address: [address] [place] [address] Performed By: #### 5 7021-8 ####[facility] LABCLIA [id number] [place] [address] [place] Immature granulocytes/100 WBC (Bld) 0.5 % Normal [facility] Comment on above: Order Comment: Speci men Type: BLOOD SPECIMENOrdering Facility: [facility] Address: [address] [place] [address] Performed By: #### 5 7021-8 ####[facility] LABCLIA [id number] [place] [address] [place] Lymphocytes (Bld) [#/Vol] 2.31 10*3/uL Normal 1.00-4.00 [facility] Comment on above: Order Comment: Speci men Type: BLOOD SPECIMENOrdering Facility: [facility] Address: [address] [place] [address] Performed By: #### 5 7021-8 ####[facility] LABCLIA [id number] [place] [address] [place] Lymphocytes/100 WBC (Bld) 22.6 % Normal [facility] Comment on above: Order Comment: Speci men Type: BLOOD SPECIMENOrdering Facility: [facility] Address: [address] [place] [address] Performed By: #### 5 7021-8 ####[facility] LABCLIA [id number] [place] [address] [place] MCH (RBC) [Entitic mass] 28.1 pg Normal 26.0-34.0 [facility] Comment on above: Order Comment: Speci men Type: BLOOD SPECIMENOrdering Facility: [facility] Address: [address] [place] [address] Performed By: #### 5 7021-8 ####[facility] LABIA [id number] [place] [address] [place] MCHC (RBC) [Mass/Vol] 32.3 g/dL Normal 30.5-36.0 [facility] Comment on above: Order Comment: Speci men Type: BLOOD SPECIMENOrdering Facility: [facility] Address: [address] [place] [address] Performed By: #### 5 7021-8 ####[facility] LABIA [id number] [place] [address] [place] MCV (RBC) [Entitic vol] 87.2 fL Normal 80.0-100.0 [facility] Comment on above: Order Comment: Speci men Type: BLOOD SPECIMENOrdering Facility: [facility] Address: [address] [place] [address] Performed By: #### 5 7021-8 ####[facility] LABCLIA [id number] [place] [address] [place] Monocytes (Bld) [#/Vol] 1.14 10*3/uL High <0.87 [facility] Comment on above: Order Comment: Speci men Type: BLOOD SPECIMENOrdering Facility: [facility] Address: [address] [place] [address] Performed By: #### 5 7021-8 ####[facility] LABCLIA [id number] [place] [address] [place] Monocytes/100 WBC (Bld) 11.1 % Normal [facility] Comment on above: Order Comment: Speci men Type: BLOOD SPECIMENOrdering Facility: [facility] Address: [address] [place] [address] Performed By: #### 5 7021-8 ####[facility] LABCLIA [id number] [place] [address] [place] Neutrophils (Bld) [#/Vol] 6.34 10*3/uL Normal 1.45-7.50 [facility] Comment on above: Order Comment: Speci men Type: BLOOD SPECIMENOrdering Facility: [facility] Address: [address] [place] [address] Performed By: #### 5 7021-8 ####[facility] LABCLIA [id number] [place] [address] [place] Neutrophils/100 WBC (Bld) 61.9 % Normal [facility] Comment on above: Order Comment: Speci men Type: BLOOD SPECIMENOrdering Facility: [facility] Address: [address] [place] [address] Performed By: #### 5 7021-8 ####[facility] LABIA [id number] [place] [address] [place] Nucleated RBC (Bld) [#/Vol] 10*3/uL Normal <0.01 [facility] Comment on above: Order Comment: Speci men Type: BLOOD SPECIMENOrdering Facility: [facility] Address: [address] [place] [address] Performed By: #### 5 7021-8 ####[facility] LABCLIA [id number] [place] [address] [place] Nucleated RBC/100 WBC (Bld) [Ratio] 0.0 /100 WBC Normal [facility] Comment on above: Order Comment: Speci men Type: BLOOD SPECIMENOrdering Facility: [facility] Address: [address] [place] [address] Performed By: #### 5 7021-8 ####[facility] LABIA [id number] [place] [address] [place] Platelet mean volume (Bld) [Entitic vol] 11.3 fL Normal 9.0-12.7 [facility] Comment on above: Order Comment: Speci men Type: BLOOD SPECIMENOrdering Facility: [facility] Address: [address] [place] [address] Performed By: #### 5 7021-8 ####[facility] LABIA [id number] [place] [address] [place] Platelets (Bld) [#/Vol] 280 10*3/uL Normal 150-400 [facility] Comment on above: Order Comment: Speci men Type: BLOOD SPECIMENOrdering Facility: [facility] Address: [address] [place] [address] Performed By: #### 5 7021-8 ####[facility] LABCLIA [id number] [place] [address] [place] RBC (Bld) [#/Vol] 5.01 10*6/uL Normal 4.20-6.00 [facility] Comment on above: Order Comment: Speci men Type: BLOOD SPECIMENOrdering Facility: [facility] Address: [address] [place] [address] Performed By: #### 5 7021-8 ####[facility] LABCLIA [id number] [place] [address] [place] WBC (Bld) [#/Vol] 10.24 10*3/uL Normal 3.70-11.00 [facility] Comment on above: Order Comment: Speci men Type: BLOOD SPECIMENOrdering Facility: [facility] Address: [address] [place] [address] Performed By: #### 5 7021-8 ####[facility] LABCLIA [id number] [address] OF [facility] HbA1c (Bld)on 11-28-2023 Average glucose Estimated from glycated hemoglobin (Bld) [Mass/Vol] 183 mg/dL Normal [facility] Comment on above: Order Comment: Salvatore de la rosa Type: BLOOD SPECIMENOrdering Facility: [facility] Address: [address] [place] [address] Result Comment: eAG: (Estimated average glucose) is a calculated value from HgbA1c and is car sales representative of the average blood glucose level in the last 2-3 month period. Performed By: #### 5 5454-3 ####[facility] LABIA [id number] [address] STATES [facility] HbA1c (Bld) [Mass fraction] 8.0 % High 4.3-5.6 [facility] Comment on above: Order Comment: Salvatore de la rosa Type: BLOOD SPECIMENOrdering Facility: [facility] Address: [address] [place] [address] Result Comment: Amer [place] Diabetes Association guidelines indicate that patients with HgbA1c in the range 5.7-6.4% are at increased risk for development of diabetes, and intervention by lifestyle modification may be beneficial. HgbA1c greater or equal to 6.5% is considered diagnostic of diabetes. Performed By: #### 5 5454-3 ####[facility] LABCLIA [id number] [address] [place] Lipid 1996 panelon 4 Cholesterol [Mass/Vol] 118 mg/dL Normal <200 [facility] Comment on above: Order Comment: Salvatore de la rosa Type: BLOOD SPECIMENOrdering Facility: [facility] Address: [address] [place] [address] Result Comment: <200 mg/dL, Desirable 200-239 mg/dL, Borderline high >239 mg/dL, High Performed By: #### 2 4331-1, 23499-1 ####[facility] LABCLIA [id number] [address] [place] Cholesterol in HDL [Mass/Vol] 37 mg/dL Low >39 [facility] Comment on above: Order Comment: Salvatore de la rosa Type: BLOOD SPECIMENOrdering Facility: [facility] Address: [address] [place] [address] Result Comment: 40-5 9 mg/dL, Acceptable >59 mg/dL, High: Negative risk factor for coronary heart disease <40 mg/dL, Low: Positive risk factor for coronary heart disease Performed By: #### 2 4331-1, 60341-9 ####[facility] LABCLIA [id number] [address] STATES [facility] Cholesterol in LDL [Mass/Vol] 55 mg/dL Normal <100 [facility] Comment on above: Order Comment: Salvatore de la rosa Type: BLOOD SPECIMENOrdering Facility: [facility] Address: [address] [place] [address] Result Comment: <100 mg/dL, Optimal 100-129 mg/dL, Near optimal/above optimal 130-159 mg/dL, Borderline high 160-189 mg/dL, High >189 mg/dL, Very high Secondary prevention optimal LDL Cholesterol levels are recommended to be < 70 mg/dL Performed By: #### 2 4331-1, 09698-1 ####[facility] LABCLIA [id number] [address] Cholesterol in LDL/Cholesterol in HDL [Mass ratio] 1.49 {ratio} Normal <2.54 [facility] Comment on above: Order Comment: Salvatore estrella Type: BLOOD SPECIMENOrdering Facility: [facility] Address: [address] [place] [address] Result Comment: David arshad: 1. National Cholesterol Education Program ATP III Guideline At-A-Glance Quick Desk Reference: National Heart, Lung, and Blood Benedict. National Institutes of Health. 2001: NIH Publication No. 01-3305. 2. An International Atherosclerosis Society position paper: global recommendations for the management of dyslipidemia: executive summary, Atherosclerosis. 2014: 232(2):410-413. Performed By: #### 2 4331-1, 37175-6 ####[facility] LABCLIA [id number] [place] [address] [place] Cholesterol in VLDL [Mass/Vol] 26 mg/dL Normal <30 [facility] Comment on above: Order Comment: Speci men Type: BLOOD SPECIMENOrdering Facility: [facility] Address: [address] [place] [address] Performed By: #### 2 4331-1, 45529-6 ####[facility] LABCLIA [id number] [place] [address] [place] Cholesterol non HDL [Mass/Vol] 81 mg/dL Normal <130 [facility] Comment on above: Order Comment: Speci men Type: BLOOD SPECIMENOrdering Facility: [facility] Address: [address] [place] [address] Result Comment: <130 mg/dL, Optimal 130-159 mg/dL, Near optimal/above optimal 160-189 mg/dL, Borderline high 190-219 mg/dL, High >219 mg/dL, Very high Secondary prevention optimal non HDL Cholesterol levels are recommended to be <100 mg/dL Performed By: #### 2 4331-1, 62488-1 ####[facility] LABCLIA [id number] [address] [address] [place] Cholesterol.total/Ch olesterol in HDL [Mass ratio] 3.19 {ratio} Normal <5.10 [facility] Comment on above: Order Comment: Speci men Type: BLOOD SPECIMENOrdering Facility: [facility] Address: [address] [place] [id number] Performed By: #### 2 4331-1, 39832-2 ####[facility] LABCLIA [id number] [place] [address] [place] FASTING TIME 12 hrs Normal [facility] Comment on above: Order Comment: Speci men Type: BLOOD SPECIMENOrdering Facility: [facility] Address: [address] [place] [address] Performed By: #### 2 4331-1, ####[facility] LABCLIA [id number] [place] [address] [place] Triglyceride [Mass/Vol] 131 mg/dL Normal <150 [facility] Comment on above: Order Comment: Speci men Type: BLOOD SPECIMENOrdering Facility: [facility] Address: [address] [place] [address] Result Comment: <150 mg/dL, Normal 150-199 mg/dL, Borderline high 200-499 mg/dL, High >499 mg/dL, Very high Performed By: #### 2 4331-1, 01677-4 ####[facility] LABCLIA [id number] [address] [place] CNPSharlene 11-14-2023 [facility] FAISAL ALARCON ([id number]) 1945 Date Time Provider Department 11/14/23 Osvaldo TRAVIS [facility] During your visit today, we recorded the following information about you: Julia Chilel LPN 11/14/2023 3:21 PM Signed Pt's daughter Loan Brooks calling in regarding Cartia XT 120mg. Med no longer on med list AND it looks like med was d/c'd on 09/06/24. Loan states pt is still taking it AND wonders if he is suppose to be taking it? If he is, he will need a refill. Pt has 6 tabs left, he will be out of meds before pcp returns to office. Please advise. Pt uses [facility] in [place]. DENISE Sal M Gregory, PA-C 11/14/2023 4:01 PM Signed It was d/c'd on 09/06/2023 by Bibiana Cheung CNP, not clear why. The following approved medication requests have been transmitted electronically. Requested Prescriptions Signed Prescriptions Disp Refills dilTIAZem CD (CARDIZEM CD, CARTIA XT) 120 mg 24 hr capsule 90 capsule 3 Sig: Take 1 capsule by mouth once daily. Authorizing Provider: Osvaldo TRAVIS PA-C Quattrocchi, Beth, LPN 11/14/2023 4:18 PM Signed Phoned patient daughter Loan went over notes below from Prosper KIRKPATRICK and aware rx sent to pharmacy. Allergies As of Date: 11/14/2023 Noted Allergy Reaction AMOXICILLIN 05/11/2005 Comments: generalized erythema Date Reviewed: 09/06/2023 Reviewed by: Anum Cheung APRN.PECAN SHELLER - Fully Assessed Reason for Visit: Medication Question [Other] Order(s):dilTIAZem CD (CARDIZEM CD, CARTIA XT) 120 mg 24 hr capsuleTake 1 capsule by mouth once daily.Disp: 90 capsuleRfl: 3 Prescriptions as of 11/14/2023 - ELIQUIS 5 mg tab(s) Take 1 tablet by mouth two times a day. - dilTIAZem CD (CARDIZEM CD, CARTIA XT) 120 mg 24 hr capsule Take 1 capsule by mouth once daily. - losartan-hydroCHLOROthia zide (HYZAAR) 100-12.5 mg per tablet Take 1 tablet by mouth once daily. - spironolactone (ALDACTONE) 25 mg tablet Take 1 tablet by mouth once daily. - carvedilol (COREG) 25 mg tablet Take 1 tablet by mouth two times a day. - famotidine (PEPCID) 20 mg tablet Take 1 tablet by mouth two times a day. - metFORMIN ER (GLUCOPHAGE XR) 500 mg 24 hr tablet Take 2 tablets by mouth two times a day before meals. - simvastatin (ZOCOR) 40 mg tablet Take 1 tablet by mouth daily at bedtime. - flecainide (TAMBOCOR) 150 mg tablet Take 1 tablet by mouth every 12 hours. Prescribed by outside fundraising specialist - albuterol HFA (VENTOLIN HFA) 90 mcg/actuation inhaler Inhale 2 Puffs as instructed every 4 hours as needed. - colestipol (COLESTID) 1 gram tablet Take 1 tablet by mouth once daily. - insulin lispro (HUMALOG KWIKPEN INSULIN) 100 unit/mL Inject 22 Units subcutaneously three times daily before meals. Getting through [facility] - insulin glargine (BASAGLAR KWIKPEN U-100 INSULIN) 100 unit/mL (3 mL) Inject 90 Units subcutaneously daily at bedtime. - finasteride (PROSCAR) 5 mg tablet - aspirin 81 mg chewable tablet Take 81 mg by mouth once daily. - insulin needles, DISPOSABLE, (1ST TIER UNIFINE PENTIPS) 31 gauge x 5/16 ndle 1 Each once daily. DX: E11.9 Insulin: Yes - Insulin Syringe-Needle U-100 1/2 mL 29 [...] of 08/20/2013: Problem List As Of Date 11/14/2023 Noted Resolved OTHER PSORIASIS [L40.8] 05/11/2005 Essential hypertension [I10] 05/11/2005 Morbid obesity (HCC) [E66.01] 05/11/2005 06/06/2023 Paranoid schizophrenia, subchronic condition wi*05/11/2005 04/23/2017 Type 2 diabetes mellitus with microalbuminuria *05/11/2005 Pure hypercholesterolemia [E78.00] 06/13/2005 06/06/2023 Sciatica [M54.30] 06/15/2005 05/06/2021 LUMB DISC DIS W MYELOPAT [M51.06] 09/22/2005 Sleep apnea [G47.30] 03/31/2009 Nonspecific abnormal results of liver function *03/31/2009 03/03/2022 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/24/2009 Low HDL (under 40) [E78.6] 06/09/2011 06/06/2023 Tubular adenoma of colon [D12.6] 06/02/2015 Schizophrenia, chronic condition (HCC) [F20.9] 04/23/2017 Obesity, Class II, BMI 35-39.9 [E66.9] 01/31/2021 SOB (shortness of breath) [R06.02] 01/31/2021 05/06/2021 Abnormal EKG [R94.31] 01/31/2021 05/06/2021 Paroxysmal atrial fibrillation (HCC) [I48.0] 02/15/2021 Chronic anticoagulation [Z79.01] 02/15/2021 Acute cholecystitis [K81.0] 06/06/2023 06/06/2023 Acute respiratory failure (HCC) [J96.00] 06/06/2023 06/06/2023 History of atrial fibrillation [Z86.79] 06/06/2023 06/06/2023 History of colonic polyps [Z86.010] 06/06/2023 Hyperlipidemia [E78.5] 06/06/2023 Left lower lobe pneumonia [J18.9] more content not included)... Normal [facility] CNPN Telephone ([facility]) -------- FAISAL ALARCON ([id number]) 1945 Date Time Provider Department 11/14/23 JEFF VIRGEN [facility] During your visit today, we recorded the following information about you: Tammy Davies LPN 11/14/2023 8:45 AM Signed Patient daughter Loan calling asking to have order for Albumin Creat urine put in computer for her father to complete on 11/28/2023 when he comes in to get his lab work done. Pending order to file. Please advise Julianna Hood APRN.SOCIAL MEDIA SR STRATEGY MANAGER 11/15/2023 12:49 PM Signed Ordered. Allergies As of Date: 11/14/2023 Noted Allergy Reaction AMOXICILLIN 05/11/2005 Comments: generalized erythema Date Reviewed: 09/06/2023 Reviewed by: Anum Cheung APRN.PECAN SHELLER - Fully Assessed Reason for Visit: Orders [681] Primary Visit Diagnosis:Type 2 diabetes mellitus without complication, with long-term current use of insulin (HCC) [E11.9, Z79.4] Order(s):ALBUMIN/CREAT RATIO RND UR [SQUACR] Order #: [id number] FUTURE Prescriptions as of 11/15/2023 - ELIQUIS 5 mg tab(s) Take 1 tablet by mouth two times a day. - dilTIAZem CD (CARDIZEM CD, CARTIA XT) 120 mg 24 hr capsule Take 1 capsule by mouth once daily. - losartan-hydroCHLOROthia zide (HYZAAR) 100-12.5 mg per tablet Take 1 tablet by mouth once daily. - spironolactone (ALDACTONE) 25 mg tablet Take 1 tablet by mouth once daily. - carvedilol (COREG) 25 mg tablet Take 1 tablet by mouth two times a day. - famotidine (PEPCID) 20 mg tablet Take 1 tablet by mouth two times a day. - metFORMIN ER (GLUCOPHAGE XR) 500 mg 24 hr tablet Take 2 tablets by mouth two times a day before meals. - simvastatin (ZOCOR) 40 mg tablet Take 1 tablet by mouth daily at bedtime. - flecainide (TAMBOCOR) 150 mg tablet Take 1 tablet by mouth every 12 hours. Prescribed by outside fundraising specialist - albuterol HFA (VENTOLIN HFA) 90 mcg/actuation inhaler Inhale 2 Puffs as instructed every 4 hours as needed. - colestipol (COLESTID) 1 gram tablet Take 1 tablet by mouth once daily. - insulin lispro (HUMALOG KWIKPEN INSULIN) 100 unit/mL Inject 22 Units subcutaneously three times daily before meals. Getting through [facility] - insulin glargine (BASAGLAR KWIKPEN U-100 INSULIN) 100 unit/mL (3 mL) Inject 90 Units subcutaneously daily at bedtime. - finasteride (PROSCAR) 5 mg tablet - aspirin 81 mg chewable tablet Take 81 mg by mouth once daily. - insulin needles, DISPOSABLE, (1ST TIER UNIFINE PENTIPS) 31 gauge x 5/16 ndle 1 Each once daily. DX: E11.9 Insulin: Yes - Insulin Syringe-Needle U-100 1/2 mL 29 [...] of 08/20/2013: Problem List As Of Date 11/14/2023 Noted Resolved OTHER PSORIASIS [L40.8] 05/11/2005 Essential hypertension [I10] 05/11/2005 Morbid obesity (HCC) [E66.01] 05/11/2005 06/06/2023 Paranoid schizophrenia, subchronic condition wi*05/11/2005 04/23/2017 Type 2 diabetes mellitus with microalbuminuria *05/11/2005 Pure hypercholesterolemia [E78.00] 06/13/2005 06/06/2023 Sciatica [M54.30] 06/15/2005 05/06/2021 LUMB DISC DIS W MYELOPAT [M51.06] 09/22/2005 Sleep apnea [G47.30] 03/31/2009 Nonspecific abnormal results of liver function *03/31/2009 03/03/2022 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/24/2009 Low HDL (under 40) [E78.6] 06/09/2011 06/06/2023 Tubular adenoma of colon [D12.6] 06/02/2015 Schizophrenia, chronic condition (HCC) [F20.9] 04/23/2017 Obesity, Class II, BMI 35-39.9 [E66.9] 01/31/2021 SOB (shortness of breath) [R06.02] 01/31/2021 05/06/2021 Abnormal EKG [R94.31] 01/31/2021 05/06/2021 Paroxysmal atrial fibrillation (HCC) [I48.0] 02/15/2021 Chronic anticoagulation [Z79.01] 02/15/2021 Acute cholecystitis [K81.0] 06/06/2023 06/06/2023 Acute respiratory failure (HCC) [J96.00] 06/06/2023 06/06/2023 History of atrial fibrillation [Z86.79] 06/06/2023 06/06/2023 History of colonic polyps [Z86.010] 06/06/2023 Hyperlipidemia [E78.5] 06/06/2023 Left lower lobe pneumonia [J18.9] 06/06/2023 06/06/2023 Mild dehydration [E86.0] 04/04/2023 06/06/2023 Nausea [R11.0] 03/06/2023 06/06/2023 Nonobstructive atherosclerosis of coronary luis*06/06/2023 Abdominal pain [R10.9] 08/18/2022 06/06/2023 Restrictive lung disease [J98.4] 06/06/2023 Right bundle branch block (RBBB) with left ante*06/06/2023 Encounter Status:Closed by JULIANNA HOOD on 11/15/23 [facility] Ema 09-12-2023 [facility] FAISAL ALARCON ([id number]) 1945 M Date Time Provider Department 09/12/23 [facility] During your visit today, we recorded the following information about you: Anum Cheung APRN.CAESAR 09/12/2023 2:44 PM Signed Please call patient and let him know that chest x-ray does not show any pneumonia. Continue regimen as is. Notify office if worsening symptoms. Thank you, Anum Cheung APRN.Alice Rosen 09/12/2023 6:26 PM Signed Attempted to contact pt with no answer or VM. Please try again. JOSE ARMANDO Mcbride Stephanie, RN 09/13/2023 9:07 AM Signed Patient notified of results and provider's instructions. Patient verbalizes understanding. Reanna Greenberg RN Allergies As of Date: 09/12/2023 Noted Allergy Reaction AMOXICILLIN 05/11/2005 Comments: generalized erythema Date Reviewed: 09/06/2023 Reviewed by: Anum Cheung APRN.PECAN SHELLER - Fully Assessed Reason for Visit: Results [95] Prescriptions as of 09/13/2023 - benzonatate (TESSALON PERLES) 100 mg capsule Take 1 capsule by mouth three times a day as needed. - doxycycline (VIBRA-TABS) 100 mg tablet Take 1 tablet by mouth two times a day for 10 days. - simvastatin (ZOCOR) 40 mg tablet Take 1 tablet by mouth daily at bedtime. - flecainide (TAMBOCOR) 150 mg tablet Take 1 tablet by mouth every 12 hours. Prescribed by outside fundraising specialist - famotidine (PEPCID) 20 mg tablet Take 1 tablet by mouth two times a day. - albuterol HFA (VENTOLIN HFA) 90 mcg/actuation inhaler Inhale 2 Puffs as instructed every 4 hours as needed. - colestipol (COLESTID) 1 gram tablet Take 1 tablet by mouth once daily. - ELIQUIS 5 mg tab(s) Take 1 tablet by mouth twice daily. - spironolactone (ALDACTONE) 25 mg tablet Take 1 tablet by mouth once daily. - carvedilol (COREG) 25 mg tablet Take 1 tablet by mouth twice daily. - senna (SENOKOT) 8.6 mg tab Take 1 tablet by mouth twice daily as needed for constipation. - insulin lispro (HUMALOG KWIKPEN INSULIN) 100 unit/mL Inject 22 Units subcutaneously three times daily before meals. Getting through [facility] - losartan-hydroCHLOROthia zide (HYZAAR) 100-12.5 mg per tablet Take 1 tablet by mouth once daily. - metFORMIN ER (GLUCOPHAGE XR) 500 mg 24 hr tablet Take 2 tablets by mouth twice daily before meals. - insulin glargine (BASAGLAR KWIKPEN U-100 INSULIN) 100 unit/mL (3 mL) Inject 90 Units subcutaneously daily at bedtime. - finasteride (PROSCAR) 5 mg tablet - aspirin 81 mg chewable tablet Take 81 mg by mouth once daily. - insulin needles, DISPOSABLE, (1ST TIER UNIFINE PENTIPS) 31 gauge x 5/16 ndle 1 Each once daily. DX: E11.9 Insulin: Yes - Insulin Syringe-Needle U-100 1/2 mL 29 [...] of 08/20/2013: Problem List As Of Date 09/12/2023 Noted Resolved OTHER PSORIASIS [L40.8] 05/11/2005 Essential hypertension [I10] 05/11/2005 Morbid obesity (HCC) [E66.01] 05/11/2005 06/06/2023 Paranoid schizophrenia, subchronic condition wi*05/11/2005 04/23/2017 Type 2 diabetes mellitus with microalbuminuria *05/11/2005 Pure hypercholesterolemia [E78.00] 06/13/2005 06/06/2023 Sciatica [M54.30] 06/15/2005 05/06/2021 LUMB DISC DIS W MYELOPAT [M51.06] 09/22/2005 Sleep apnea [G47.30] 03/31/2009 Nonspecific abnormal results of liver function *03/31/2009 03/03/2022 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/24/2009 Low HDL (under 40) [E78.6] 06/09/2011 06/06/2023 Tubular adenoma of colon [D12.6] 06/02/2015 Schizophrenia, chronic condition (HCC) [F20.9] 04/23/2017 Obesity, Class II, BMI 35-39.9 [E66.9] 01/31/2021 SOB (shortness of breath) [R06.02] 01/31/2021 05/06/2021 Abnormal EKG [R94.31] 01/31/2021 05/06/2021 Paroxysmal atrial fibrillation (HCC) [I48.0] 02/15/2021 Chronic anticoagulation [Z79.01] 02/15/2021 Acute cholecystitis [K81.0] 06/06/2023 06/06/2023 Acute respiratory failure (HCC) [J96.00] 06/06/2023 06/06/2023 History of atrial fibrillation [Z86.79] 06/06/2023 06/06/2023 History of colonic polyps [Z86.010] 06/06/2023 Hyperlipidemia [E78.5] 06/06/2023 Left lower lobe pneumonia [J18.9] 06/06/2023 06/06/2023 Mild dehydration [E86.0] 04/04/2023 06/06/2023 Nausea [R11.0] 03/06/2023 06/06/2023 Nonobstructive atherosclerosis of coronary luis*06/06/2023 Abdominal pain [R10.9] 08/18/2022 06/06/2023 Restrictive lung disease [J98.4] 06/06/2023 Right bundle branch block (RBBB) with left ante*06/06/2023 Encounter Status:Closed by REANNA GREENBERG on 09/13/23 Normal [facility] XR Chest PA and Lateralon IMPRESSION: Diffuse coarsening of the lung markings, with areas of linear atelectasis or fibrosis. Stable Cardiomegaly Hog Killer: BERNIE Transcribe Date/Time: Sep 11 2023 12:08P Dictated by : TRES CARSON MD This examination was interpreted and the report reviewed and electronically signed by: TRES CARSON MD on Sep 11 2023 12:10PM [facility] DIVISION OF RADIOLOGY * * *Final Report* * * DATE OF EXAM: Sep 06 2023 3:30PM WOX [id number] - XR CHEST 2V FRONTAL/LAT / PROCEDURE REASON: multiple diagnoses * * * * Physician Interpretation * * * * EXAMINATION: CHEST RADIOGRAPH (2 VIEW FRONTAL & LATERAL) CLINICAL HISTORY: Sinobronchitis MQ: XC2_6 EXAM DATE/TIME: 09/06/2023 3:30 PM COMPARISON: 06/09/2023 RESULT: Lines, tubes, and devices: None. Lungs and pleura: Diffuse coarsening of the lung markings with areas of linear atelectasis or fibrosis. No new significant collapse or consolidation. No pleural fluid or pneumothorax Cardiomediastinal silhouette: Mildly enlarged cardiomediastinal silhouette. Bones and soft tissues: Multilevel degenerative change. DIVISION OF RADIOLOGY Provider, Austin Barahona - 09/11/2023 * * *Final Report* * * DATE OF EXAM: Sep 06 2023 3:30PM WOX [id number] - XR CHEST 2V FRONTAL/LAT / PROCEDURE REASON: multiple diagnoses * * * * Physician Interpretation * * * * EXAMINATION: CHEST RADIOGRAPH (2 VIEW FRONTAL & LATERAL) CLINICAL HISTORY: Sinobronchitis MQ: XC2_6 EXAM DATE/TIME: 09/06/2023 3:30 PM COMPARISON: 06/09/2023 RESULT: Lines, tubes, and devices: None. Lungs and pleura: Diffuse coarsening of the lung markings with areas of linear atelectasis or fibrosis. No new significant collapse or consolidation. No pleural fluid or pneumothorax Cardiomediastinal silhouette: Mildly enlarged cardiomediastinal silhouette. Bones and soft tissues: Multilevel degenerative change. IMPRESSION IMPRESSION: Diffuse coarsening of the lung markings, with areas of linear atelectasis or fibrosis. Stable Cardiomegaly Hog Killer: PSCB Transcribe Date/Time: Sep 11 2023 12:08P Dictated by : TRES CARSON MD This examination was interpreted and the report reviewed and electronically signed by: TRES CARSON MD on Sep 11 2023 12:10PM [facility] XR Chest PA and LateralOrder ed By: Cc Provider on 09-11-2023 [facility] 09-07-2023 [facility] Telephone ([facility]) -------- FAISAL ALARCON ([id number]) 1945 M Date Time Provider Department 09/07/23 [facility] During your visit today, we recorded the following information about you: Reanna Greenberg, NILDA 09/07/2023 12:59 PM Signed Patient's daughter calls upset because chest x ray has not been read yet. Daughter states that she needs to know whether her father is contagious or not so that he can go to holiday gatherings. Daughter states that she needs to know whether or not patient has bronchitis or pneumonia. Patient was started on doxycycline, methylprednisolone, and benzonatate at appointment with Anum yesterday. Please advise on whether patient should go to family gatherings or not. Please review and advise, NILDA Colbert William J, MD 09/07/2023 1:02 PM Signed We have no control over radiology at [facility]. If he is sick, he is contagious no matter what it shows and is being treated for both. Reanna Greenberg RN 09/07/2023 1:11 PM Signed Loan notified of provider recommendations. Loan voices understanding. Reanna Greenberg RN Allergies As of Date: 09/07/2023 Noted Allergy Reaction AMOXICILLIN 05/11/2005 Comments: generalized erythema Date Reviewed: 09/06/2023 Reviewed by: Anum Cheung APRN.PECAN SHELLER - Fully Assessed Reason for Visit: Patient Update [1234] Prescriptions as of 09/07/2023 - benzonatate (TESSALON PERLES) 100 mg capsule Take 1 capsule by mouth three times a day as needed. - methylPREDNISolone (MEDROL, BINA,) 4 mg Dose-Pack Follow dosing instructions, take with food. - doxycycline (VIBRA-TABS) 100 mg tablet Take 1 tablet by mouth two times a day for 10 days. - simvastatin (ZOCOR) 40 mg tablet Take 1 tablet by mouth daily at bedtime. - flecainide (TAMBOCOR) 150 mg tablet Take 1 tablet by mouth every 12 hours. Prescribed by outside fundraising specialist - famotidine (PEPCID) 20 mg tablet Take 1 tablet by mouth two times a day. - albuterol HFA (VENTOLIN HFA) 90 mcg/actuation inhaler Inhale 2 Puffs as instructed every 4 hours as needed. - colestipol (COLESTID) 1 gram tablet Take 1 tablet by mouth once daily. - ELIQUIS 5 mg tab(s) Take 1 tablet by mouth twice daily. - spironolactone (ALDACTONE) 25 mg tablet Take 1 tablet by mouth once daily. - carvedilol (COREG) 25 mg tablet Take 1 tablet by mouth twice daily. - senna (SENOKOT) 8.6 mg tab Take 1 tablet by mouth twice daily as needed for constipation. - insulin lispro (HUMALOG KWIKPEN INSULIN) 100 unit/mL Inject 22 Units subcutaneously three times daily before meals. Getting through [facility] - losartan-hydroCHLOROthia zide (HYZAAR) 100-12.5 mg per tablet Take 1 tablet by mouth once daily. - metFORMIN ER (GLUCOPHAGE XR) 500 mg 24 hr tablet Take 2 tablets by mouth twice daily before meals. - insulin glargine (BASAGLAR KWIKPEN U-100 INSULIN) 100 unit/mL (3 mL) Inject 90 Units subcutaneously daily at bedtime. - finasteride (PROSCAR) 5 mg tablet - aspirin 81 mg chewable tablet Take 81 mg by mouth once daily. - insulin needles, DISPOSABLE, (1ST TIER UNIFINE PENTIPS) 31 gauge x 5/16 ndle 1 Each once daily. DX: E11.9 Insulin: Yes - Insulin Syringe-Needle U-100 1/2 mL 29 [...] of 08/20/2013: Problem List As Of Date 09/07/2023 Noted Resolved OTHER PSORIASIS [L40.8] 05/11/2005 Essential hypertension [I10] 05/11/2005 Morbid obesity (HCC) [E66.01] 05/11/2005 06/06/2023 Paranoid schizophrenia, subchronic condition wi*05/11/2005 04/23/2017 Type 2 diabetes mellitus with microalbuminuria *05/11/2005 Pure hypercholesterolemia [E78.00] 06/13/2005 06/06/2023 Sciatica [M54.30] 06/15/2005 05/06/2021 LUMB DISC DIS W MYELOPAT [M51.06] 09/22/2005 Sleep apnea [G47.30] 03/31/2009 Nonspecific abnormal results of liver function *03/31/2009 03/03/2022 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/24/2009 Low HDL (under 40) [E78.6] 06/09/2011 06/06/2023 Tubular adenoma of colon [D12.6] 06/02/2015 Schizophrenia, chronic condition (HCC) [F20.9] 04/23/2017 Obesity, Class II, BMI 35-39.9 [E66.9] 01/31/2021 SOB (shortness of breath) [R06.02] 01/31/2021 05/06/2021 Abnormal EKG [R94.31] 01/31/2021 05/06/2021 Paroxysmal atrial fibrillation (HCC) [I48.0] 02/15/2021 Chronic anticoagulation [Z79.01] 02/15/2021 Acute cholecystitis [K81.0] 06/06/2023 06/06/2023 Acute respiratory failure (HCC) [J96.00] 06/06/2023 06/06/2023 History of atrial fibrillation [Z86.79] 06/06/2023 06/06/2023 History of colonic polyps [Z86.010] 06/06/2023 Hyperlipidemia [E78.5] 06/06/2023 Left lower lobe pneumonia (more content not included)... Normal [facility] CNOVon 09-06-2023 CNOV Office Visit (FAMPWS ) -------- FAISAL ALARCON ([id number]) 1945 M Date Time Provider Department 09/06/23 2:40 PM ANUM CHEUNGPWS During your visit today, we recorded the following information about you: Temperature Pulse Respiration Blood pressure 96.4 degrees 68/minute 14/minute 120/64 Weight 132.4 kg Anum Cheung PAIGE.PECAN SHELLER 09/06/2023 3:13 PM Signed Chief Complaint Patient presents with: cough: Started [...] mouth every 12 hours. Prescribed by outside fundraising specialist famotidine (PEPCID) 20 mg tablet Take 1 [...] mg tablet Take 1 tablet by mouth (more content not included)... Normal [facility] XR CHEST 2V FRONTAL/LATon XR CHEST 2V FRONTAL/LAT * * *Final Report* * * DATE OF EXAM: Sep 06 2023 3:30PM WOX [id number] - XR CHEST 2V FRONTAL/LAT / PROCEDURE REASON: multiple diagnoses * * * * Physician Interpretation * * * * EXAMINATION: CHEST RADIOGRAPH (2 VIEW FRONTAL and LATERAL) CLINICAL HISTORY: Sinobronchitis MQ: XC2_6 EXAM DATE/TIME: 09/06/2023 3:30 PM COMPARISON: 06/09/2023 RESULT: Lines, tubes, and devices: None. Lungs and pleura: Diffuse coarsening of the lung markings with areas of linear atelectasis or fibrosis. No new significant collapse or consolidation. No pleural fluid or pneumothorax Cardiomediastinal silhouette: Mildly enlarged cardiomediastinal silhouette. Bones and soft tissues: Multilevel degenerative change. IMPRESSION: Diffuse coarsening of the lung markings, with areas of linear atelectasis or fibrosis. Stable Cardiomegaly Hog Killer: BERNIE Transcribe Date/Time: Sep 11 2023 12:08P Dictated by : TRES CARSON MD This examination was interpreted and the report reviewed and electronically signed by: TRES CARSON MD on Sep 11 2023 12:10PM EST [id number] Normal [facility] XR Chest PA and Lateralon Radiology Study observation (narrative) [facility] Ema 08-07-2023 [facility] Telephone ([facility]) -------- FAISAL ALARCON ([id number]) 1945 M Date Time Provider Department 08/07/23 JEFF VIRGEN During your visit today, we recorded the following information about you: Lulu Cleary 08/07/2023 2:16 PM Signed Type of form: Patient Assistance. [facility] Form received via walk in When form is completed, Fax form to number on form. Form has been forwarded to Physician Desk: Dr. Virgen. Lulu Liz 08/07/2023 2:34 PM Signed Forms completed and signed and faxed back to [place] at [phone]. Patient informed. Lulu Cleary Allergies As of Date: 08/07/2023 Noted Allergy Reaction AMOXICILLIN 05/11/2005 Comments: generalized erythema Date Reviewed: 07/23/2023 Reviewed by: Julia Lopez LPN - Fully Assessed Reason for Visit: Patient Assistance [8985] Cmt: [facility] (Basaglar and Humalog) Prescriptions as of 08/07/2023 - flecainide (TAMBOCOR) 150 mg tablet Take 1 tablet by mouth every 12 hours. Prescribed by outside fundraising specialist - famotidine (PEPCID) 20 mg tablet Take 1 tablet by mouth two times a day. - albuterol HFA (VENTOLIN HFA) 90 mcg/actuation inhaler Inhale 2 Puffs as instructed every 4 hours as needed. - colestipol (COLESTID) 1 gram tablet Take 1 tablet by mouth once daily. - ELIQUIS 5 mg tab(s) Take 1 tablet by mouth twice daily. - spironolactone (ALDACTONE) 25 mg tablet Take 1 tablet by mouth once daily. - carvedilol (COREG) 25 mg tablet Take 1 tablet by mouth twice daily. - senna (SENOKOT) 8.6 mg tab Take 1 tablet by mouth twice daily as needed for constipation. - dilTIAZem CD (CARDIZEM CD, CARTIA XT) 120 mg 24 hr capsule Take 1 capsule by mouth once daily. - insulin lispro (HUMALOG KWIKPEN INSULIN) 100 unit/mL Inject 22 Units subcutaneously three times daily before meals. Getting through [facility] - losartan-hydroCHLOROthia zide (HYZAAR) 100-12.5 mg per tablet Take 1 tablet by mouth once daily. - metFORMIN ER (GLUCOPHAGE XR) 500 mg 24 hr tablet Take 2 tablets by mouth twice daily before meals. - insulin glargine (BASAGLAR KWIKPEN U-100 INSULIN) 100 unit/mL (3 mL) Inject 90 Units subcutaneously daily at bedtime. - simvastatin (ZOCOR) 40 mg tablet Take 1 tablet by mouth daily at bedtime. - finasteride (PROSCAR) 5 mg tablet - aspirin 81 mg chewable tablet Take 81 mg by mouth once daily. - insulin needles, DISPOSABLE, (1ST TIER UNIFINE PENTIPS) 31 gauge x 5/16 ndle 1 Each once daily. DX: E11.9 Insulin: Yes - Insulin Syringe-Needle U-100 1/2 mL 29 [...] of 08/20/2013: Problem List As Of Date 08/07/2023 Noted Resolved OTHER PSORIASIS [L40.8] 05/11/2005 Essential hypertension [I10] 05/11/2005 Morbid obesity (HCC) [E66.01] 05/11/2005 06/06/2023 Paranoid schizophrenia, subchronic condition wi*05/11/2005 04/23/2017 Type 2 diabetes mellitus with microalbuminuria *05/11/2005 Pure hypercholesterolemia [E78.00] 06/13/2005 06/06/2023 Sciatica [M54.30] 06/15/2005 05/06/2021 LUMB DISC DIS W MYELOPAT [M51.06] 09/22/2005 Sleep apnea [G47.30] 03/31/2009 Nonspecific abnormal results of liver function *03/31/2009 03/03/2022 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/24/2009 Low HDL (under 40) [E78.6] 06/09/2011 06/06/2023 Tubular adenoma of colon [D12.6] 06/02/2015 Schizophrenia, chronic condition (HCC) [F20.9] 04/23/2017 Obesity, Class II, BMI 35-39.9 [E66.9] 01/31/2021 SOB (shortness of breath) [R06.02] 01/31/2021 05/06/2021 Abnormal EKG [R94.31] 01/31/2021 05/06/2021 Paroxysmal atrial fibrillation (HCC) [I48.0] 02/15/2021 Chronic anticoagulation [Z79.01] 02/15/2021 Acute cholecystitis [K81.0] 06/06/2023 06/06/2023 Acute respiratory failure (HCC) [J96.00] 06/06/2023 06/06/2023 History of atrial fibrillation [Z86.79] 06/06/2023 06/06/2023 History of colonic polyps [Z86.010] 06/06/2023 Hyperlipidemia [E78.5] 06/06/2023 Left lower lobe pneumonia [J18.9] 06/06/2023 06/06/2023 Mild dehydration [E86.0] 04/04/2023 06/06/2023 Nausea [R11.0] 03/06/2023 06/06/2023 Nonobstructive atherosclerosis of coronary luis*06/06/2023 Abdominal pain [R10.9] 08/18/2022 06/06/2023 Restrictive lung disease [J98.4] 06/06/2023 Right bundle branch block (RBBB) with left ante*06/06/2023 Encounter Status:Closed by LULU CLEARY on 08/07/23 Normal [facility] XR Pelvis and Hip - right AP and Lateral frogon 07-25-2023 IMPRESSION: Minimal right hip osteoarthritis without acute osseous abnormality. Hog Killer: PSCB Transcribe Date/Time: Jul 25 2023 9:21A Dictated by : CARINA IGLESIAS DO This examination was interpreted and the report reviewed and electronically signed by: CARINA IGLESIAS DO on Jul 25 2023 9:22AM [facility] DIVISION OF RADIOLOGY * * *Final Report* * * DATE OF EXAM: Jul 23 2023 3:10PM WOX [id number] - XR HIP 3V PELV+ AP/LAT RT / PROCEDURE REASON: Acute hip pain, right * * * * Physician Interpretation * * * * EXAMINATION: XR HIP 3V PELV+ AP/LAT RT CLINICAL HISTORY: Right posterior hip pain x 3-4 days without injury Acute hip pain, right Technique: XR HIP 3V PELV+ AP/LAT RT -- RIGHT with 3 views on 3 images Comparison: None RESULT: No acute fracture or dislocation. Minimal degenerative changes of the right hip with minimal axial joint space narrowing and small marginal osteophytes. Sacroiliac joints are maintained. Degenerative changes of the lower lumbar spine. Pelvic enthesopathy. DIVISION OF RADIOLOGY Provider, [facility] - 07/25/2023 * * *Final Report* * * DATE OF EXAM: Jul 23 2023 3:10PM WOX [id number] - XR HIP 3V PELV+ AP/LAT RT / PROCEDURE REASON: Acute hip pain, right * * * * Physician Interpretation * * * * EXAMINATION: XR HIP 3V PELV+ AP/LAT RT CLINICAL HISTORY: Right posterior hip pain x 3-4 days without injury Acute hip pain, right Technique: XR HIP 3V PELV+ AP/LAT RT -- RIGHT with 3 views on 3 images Comparison: None RESULT: No acute fracture or dislocation. Minimal degenerative changes of the right hip with minimal axial joint space narrowing and small marginal osteophytes. Sacroiliac joints are maintained. Degenerative changes of the lower lumbar spine. Pelvic enthesopathy. IMPRESSION IMPRESSION: Minimal right hip osteoarthritis without acute osseous abnormality. Hog Killer: PSCB Transcribe Date/Time: Jul 25 2023 9:21A Dictated by : CARINA IGLESIAS DO This examination was interpreted and the report reviewed and electronically signed by: CARINA IGLESIAS DO on Jul 25 2023 9:22AM EST [facility] XR Pelvis and Hip - right AP and Lateral frogOrdered By: Ccf Provider on 07-25-2023 [facility] CNOVon 07-23-2023 CNOV Office Visit (FAMPWS ) -------- FAISAL ALARCON ([id number]) 1945 M Date Time Provider Department 07/23/23 2:20 PM JARVIS NICOLE During your visit today, we recorded the following information about you: Pulse Respiration Blood pressure 64/minute 20/minute 128/70 Jarvis Nicole MD 07/23/2023 3:36 PM Signed Chief Complaint Patient presents with: Pain: Right [...] mouth every 12 hours. Prescribed by outside fundraising specialist famotidine (PEPCID) 20 mg tablet Take 1 [...] times daily before meals. Getting through [facility] metFORMIN ER (GLUCOPHAGE XR) 500 mg 24 [...] mouth twice daily as needed for constipation. losartan-hydroCHLOROthia zide (HYZAAR) 100-12.5 mg per tablet Take 1 [...] EXAM: BP 128/70 Pulse 64 Resp 20 (more content not included)... Normal [facility] XR HIP 3V PELV+ AP/LAT RTon 07-23-2023 XR HIP 3V PELV+ AP/LAT RT * * *Final Report* * * DATE OF EXAM: Jul 23 2023 3:10PM WOX [id number] - XR HIP 3V PELV+ AP/LAT RT / PROCEDURE REASON: Acute hip pain, right * * * * Physician Interpretation * * * * EXAMINATION: XR HIP 3V PELV+ AP/LAT RT CLINICAL HISTORY: Right posterior hip pain x 3-4 days without injury Acute hip pain, right Technique: XR HIP 3V PELV+ AP/LAT RT -- RIGHT with 3 views on 3 images Comparison: None RESULT: No acute fracture or dislocation. Minimal degenerative changes of the right hip with minimal axial joint space narrowing and small marginal osteophytes. Sacroiliac joints are maintained. Degenerative changes of the lower lumbar spine. Pelvic enthesopathy. IMPRESSION: Minimal right hip osteoarthritis without acute osseous abnormality. Hog Killer: PSCB Transcribe Date/Time: Jul 25 2023 9:21A Dictated by : CARINA IGLESIAS DO This examination was interpreted and the report reviewed and electronically signed by: CARINA IGLESIAS DO on Jul 25 2023 9:22AM EST [id number] Normal [facility] XR Pelvis and Hip - right AP and Lateral frogon 07-23-2023 Radiology Study observation (narrative) [facility] SEBASTIANOon 07-13-2023 [facility] (F[facility] -------- ESHAFAISAL PYLE ([id number]) 1945 M Date Time Provider Department 07/13/23 JEFF VIRGEN [facility] During your visit today, we recorded the following information about you: Janet King Ma 07/13/2023 1:55 PM Signed Received notification that patient will be due for re-enrollment for the [facility] patient assistance programs of Humalog and Basjillianar starting 09/17/23. Call to daughter and advised her of this. She will start the process and get it to us. She is asking for a handicap placard to be completed for pt. Once done, call her for shredder picker. Jeff Bray Ma, MD 07/13/2023 2:10 PM Signed Printed. Anthony Henley LPN 07/13/2023 4:20 PM Signed Notified that will place in medical records for shredder picker. Can shredder picker starting tomorrow 07/14/23. Allergies As of Date: 07/13/2023 Noted Allergy Reaction AMOXICILLIN 05/11/2005 Comments: generalized erythema Date Reviewed: 06/09/2023 Reviewed by: Julia Lopez LPN - Fully Assessed Prescriptions as of 07/13/2023 - flecainide (TAMBOCOR) 150 mg tablet Take 1 tablet by mouth every 12 hours. Prescribed by outside fundraising specialist - famotidine (PEPCID) 20 mg tablet Take 1 tablet by mouth two times a day. - albuterol HFA (VENTOLIN HFA) 90 mcg/actuation inhaler Inhale 2 Puffs as instructed every 4 hours as needed. - colestipol (COLESTID) 1 gram tablet Take 1 tablet by mouth once daily. - ELIQUIS 5 mg tab(s) Take 1 tablet by mouth twice daily. - spironolactone (ALDACTONE) 25 mg tablet Take 1 tablet by mouth once daily. - carvedilol (COREG) 25 mg tablet Take 1 tablet by mouth twice daily. - senna (SENOKOT) 8.6 mg tab Take 1 tablet by mouth twice daily as needed for constipation. - dilTIAZem CD (CARDIZEM CD, CARTIA XT) 120 mg 24 hr capsule Take 1 capsule by mouth once daily. - insulin lispro (HUMALOG KWIKPEN INSULIN) 100 unit/mL Inject 22 Units subcutaneously three times daily before meals. Getting through [facility] - losartan-hydroCHLOROthia zide (HYZAAR) 100-12.5 mg per tablet Take 1 tablet by mouth once daily. - metFORMIN ER (GLUCOPHAGE XR) 500 mg 24 hr tablet Take 2 tablets by mouth twice daily before meals. - insulin glargine (BASAGLAR KWIKPEN U-100 INSULIN) 100 unit/mL (3 mL) Inject 90 Units subcutaneously daily at bedtime. - simvastatin (ZOCOR) 40 mg tablet Take 1 tablet by mouth daily at bedtime. - finasteride (PROSCAR) 5 mg tablet - aspirin 81 mg chewable tablet Take 81 mg by mouth once daily. - insulin needles, DISPOSABLE, (1ST TIER UNIFINE PENTIPS) 31 gauge x 5/16 ndle 1 Each once daily. DX: E11.9 Insulin: Yes - Insulin Syringe-Needle U-100 1/2 mL 29 [...] of 08/20/2013: Problem List As Of Date 07/13/2023 Noted Resolved OTHER PSORIASIS [L40.8] 05/11/2005 Essential hypertension [I10] 05/11/2005 Morbid obesity (HCC) [E66.01] 05/11/2005 06/06/2023 Paranoid schizophrenia, subchronic condition wi*05/11/2005 04/23/2017 Type 2 diabetes mellitus with microalbuminuria *05/11/2005 Pure hypercholesterolemia [E78.00] 06/13/2005 06/06/2023 Sciatica [M54.30] 06/15/2005 05/06/2021 LUMB DISC DIS W MYELOPAT [M51.06] 09/22/2005 Sleep apnea [G47.30] 03/31/2009 Nonspecific abnormal results of liver function *03/31/2009 03/03/2022 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/24/2009 Low HDL (under 40) [E78.6] 06/09/2011 06/06/2023 Tubular adenoma of colon [D12.6] 06/02/2015 Schizophrenia, chronic condition (HCC) [F20.9] 04/23/2017 Obesity, Class II, BMI 35-39.9 [E66.9] 01/31/2021 SOB (shortness of breath) [R06.02] 01/31/2021 05/06/2021 Abnormal EKG [R94.31] 01/31/2021 05/06/2021 Paroxysmal atrial fibrillation (HCC) [I48.0] 02/15/2021 Chronic anticoagulation [Z79.01] 02/15/2021 Acute cholecystitis [K81.0] 06/06/2023 06/06/2023 Acute respiratory failure (HCC) [J96.00] 06/06/2023 06/06/2023 History of atrial fibrillation [Z86.79] 06/06/2023 06/06/2023 History of colonic polyps [Z86.010] 06/06/2023 Hyperlipidemia [E78.5] 06/06/2023 Left lower lobe pneumonia [J18.9] 06/06/2023 06/06/2023 Mild dehydration [E86.0] 04/04/2023 06/06/2023 Nausea [R11.0] 03/06/2023 06/06/2023 Nonobstructive atherosclerosis of coronary luis*06/06/2023 Abdominal pain [R10.9] 08/18/2022 06/06/2023 Restrictive lung disease [J98.4] 06/06/2023 Right bundle branch block (RBBB) with left ante*06/06/2023 Encounter Status:Closed by ANTHONY HENLEY LPN on 07/13/23 [facility]LATon [facility] XR Chest PA and Lateralon IMPRESSION: Question of some mild bilateral perihilar infiltrate. Hog Killer: BERNIE Transcribe Date/Time: Jun 09 2023 12:07P Dictated by : MAN ROSADO DO This examination was interpreted and the report reviewed and electronically signed by: MAN ROSADO DO on Jun 09 2023 12:08PM [facility] DIVISION OF RADIOLOGY * * *Final Report* * * DATE OF EXAM: Jun 09 2023 11:44AM WOX 5291 - XR CHEST 2V FRONTAL/LAT / PROCEDURE REASON: multiple diagnoses * * * * Physician Interpretation * * * * EXAMINATION: CHEST RADIOGRAPH (2 VIEW FRONTAL & LATERAL) CLINICAL HISTORY: Viral URI with cough Bronchitis MQ: XC2_6 EXAM DATE/TIME: 06/09/2023 11:44 AM COMPARISON: 07/13/2021 RESULT: Lines, tubes, and devices: None. Lungs and pleura: Suggestion some mild perihilar haziness bilaterally. No focal consolidation. No lung mass. No pleural effusion. No pneumothorax. Cardiomediastinal silhouette: Normal cardiomediastinal silhouette. Bones and soft tissues: Unremarkable. DIVISION OF RADIOLOGY Provider, Jammie Joel Barahona - 06/09/2023 * * *Final Report* * * DATE OF EXAM: Jun 09 2023 11:44AM WOX 5291 - XR CHEST 2V FRONTAL/LAT / PROCEDURE REASON: multiple diagnoses * * * * Physician Interpretation * * * * EXAMINATION: CHEST RADIOGRAPH (2 VIEW FRONTAL & LATERAL) CLINICAL HISTORY: Viral URI with cough Bronchitis MQ: XC2_6 EXAM DATE/TIME: 06/09/2023 11:44 AM COMPARISON: 07/13/2021 RESULT: Lines, tubes, and devices: None. Lungs and pleura: Suggestion some mild perihilar haziness bilaterally. No focal consolidation. No lung mass. No pleural effusion. No pneumothorax. Cardiomediastinal silhouette: Normal cardiomediastinal silhouette. Bones and soft tissues: Unremarkable. IMPRESSION IMPRESSION: Question of some mild bilateral perihilar infiltrate. Hog Killer: BERNIE Transcribe Date/Time: Jun 09 2023 12:07P Dictated by : MAN ROSADO DO This examination was interpreted and the report reviewed and electronically signed by: MAN ROSADO DO on Jun 09 2023 12:08PM EST [facility] Radiology Study observation (narrative) [facility] XR Chest PA and LateralOrder ed By: Ccf Provider on 06-09-2023 [facility] CBC W Auto Differential pane l (Bld)on 03-02-2023 Basophils (Bld) [#/Vol] 0.06 10*3/uL <0.11 k/uL [facility] Basophils/100 WBC (Bld) 0.5 % [facility] Differential cell count method Nom (Bld) Auto [facility] Eosinophils (Bld) [#/Vol] 0.44 10*3/uL <0.46 k/uL [facility] Eosinophils/100 WBC (Bld) 4.0 % [facility] Erythrocyte distribution width (RBC) [Ratio] 13.3 % 11.5 - 15.0 % [facility] Hematocrit (Bld) [Volume fraction] 44.9 % 39.0 - 51.0 % [facility] Hemoglobin (Bld) [Mass/Vol] 14.4 g/dL 13.0 - 17.0 g/dL [facility] Immature granulocytes (Bld) [#/Vol] 0.04 10*3/uL <0.10 k/uL [facility] Immature granulocytes/100 WBC (Bld) 0.4 % [facility] Lymphocytes (Bld) [#/Vol] 2.03 10*3/uL 1.00 - 4.00 k/uL [facility] Lymphocytes/100 WBC (Bld) 18.5 % [facility] MCH (RBC) [Entitic mass] 28.7 pg 26.0 - 34.0 pg [facility] MCHC (RBC) [Mass/Vol] 32.1 g/dL 30.5 - 36.0 g/dL [facility] MCV (RBC) [Entitic vol] 89.4 fL 80.0 - 100.0 fL [facility] Monocytes (Bld) [#/Vol] 1.22 10*3/uL High <0.87 k/uL [facility] Monocytes/100 WBC (Bld) 11.1 % [facility] Neutrophils (Bld) [#/Vol] 7.19 10*3/uL 1.45 - 7.50 k/uL [facility] Neutrophils/100 WBC (Bld) 65.5 % [facility] Nucleated RBC (Bld) [#/Vol] <0.01 k/uL [facility] Nucleated RBC/100 WBC (Bld) [Ratio] 0.0 /100 WBC [facility] Platelet mean volume (Bld) [Entitic vol] 11.5 fL 9.0 - 12.7 fL [facility] Platelets (Bld) [#/Vol] 259 10*3/uL 150 - 400 k/uL [facility] RBC (Bld) [#/Vol] 5.02 10*6/uL 4.20 - 6.0 0 m/uL [facility] WBC (Bld) [#/Vol] 10.98 10*3/uL 3.70 - 11 .00 k/uL [facility] XR ANKLE GENERAL 3V AP/LAT/O BL LEFTon 02-16-2023 [facility] XR Ankle - left AP and Later al and obliqueon 02-16-2023 IMPRESSION: Degenera tive changes in the left ankle with mild soft tissue swelling. No acute fracture seen. Patient can be reevaluated in 10-14 days if symptoms persist. Hog Killer: PSCB Transcribe Date/Time: Feb 16 2023 3:38P Dictated by : XOCHITL SHIPMAN MD This examination was interpreted and the report reviewed and electronically signed by: XOCHITL SHIPMAN MD on Feb 16 2023 3:40PM [facility] DIVISION OF RADIOLOGY * * *Final Report* * * DATE OF EXAM: Feb 16 2023 3:32PM WOX 5298 - XR ANKLE 3V AP/LAT/OBL LT / PROCEDURE REASON: Acute left ankle pain * * * * Physician Interpretation * * * * EXAM TITLE: XR ANKLE 3V AP/LAT/OBL LT EXAM DATE/TIME: 02/16/2023 3:32 PM COMPARISON: None. CLINICAL INDICATION/HISTORY: Acute ankle pain. TECHNIQUE: AP, mortise and lateral views of the left ankle are presented. FINDINGS: No acute fractures or subluxations are noted. Osteophyte formation noted. Calcaneal enthesophyte formation is present. The mortise joint spaces are well preserved. There is no ankle joint effusion. There appears be mild soft tissue swelling along the lateral malleolus. DIVISION OF RADIOLOGY Provider, [facility] - 02/16/2023 * * *Final Report* * * DATE OF EXAM: Feb 16 2023 3:32PM WOX 5298 - XR ANKLE 3V AP/LAT/OBL LT / PROCEDURE REASON: Acute left ankle pain * * * * Physician Interpretation * * * * EXAM TITLE: XR ANKLE 3V AP/LAT/OBL LT EXAM DATE/TIME: 02/16/2023 3:32 PM COMPARISON: None. CLINICAL INDICATION/HISTORY: Acute ankle pain. TECHNIQUE: AP, mortise and lateral views of the left ankle are presented. FINDINGS: No acute fractures or subluxations are noted. Osteophyte formation noted. Calcaneal enthesophyte formation is present. The mortise joint spaces are well preserved. There is no ankle joint effusion. There appears be mild soft tissue swelling along the lateral malleolus. IMPRESSION IMPRESSION: Degenerative changes in the left ankle with mild soft tissue swelling. No acute fracture seen. Patient can be reevaluated in 10-14 days if symptoms persist. Hog Killer: BERNIE Transcribe Date/Time: Feb 16 2023 3:38P Dictated by : XOCHITL SHIPMAN MD This examination was interpreted and the report reviewed and electronically signed by: XOCHITL SHIPMAN MD on Feb 16 2023 3:40PM [facility] Radiology Study observation (narrative) [facility] XR Ankle - left AP and Later al and obliqueOrdered By: Cc Provider on 02-16-2023 [facility] XR Chest PA and Lateralon IMPRESSION: No acute radiographic abnormality. [facility] Transcribe Date/Time: Jul 13 2021 10:18A Dictated by : SILVIO WORTHY MD This examination was interpreted and the report reviewed and electronically signed by: SILVIO WORTHY MD on Jul 13 2021 10:19AM [facility] DIVISION OF RADIOLOGY * * *Final Report* * * DATE OF EXAM: Jul 13 2021 10:16AM WOX 5291 - XR CHEST 2V FRONTAL/LAT / PROCEDURE REASON: multiple diagnoses * * * * Physician Interpretation * * * * EXAMINATION: CHEST RADIOGRAPH (2 VIEW FRONTAL & LATERAL) CLINICAL HISTORY: SOB (shortness of breath) LRTI (lower respiratory tract infection) MQ: XC2_6 EXAM DATE/TIME: 07/13/2021 10:16 AM COMPARISON: Chest x-ray dated January 24, 2021 RESULT: Lines, tubes, and devices: None. Lungs and pleura: No consolidation. No lung mass. No pleural effusion. No pneumothorax. Cardiomediastinal silhouette: Normal cardiomediastinal silhouette. Bones and soft tissues: Osteopenia and degenerative changes in the spine. DIVISION OF RADIOLOGY Provider, [facility] - 07/13/2021 * * *Final Report* * * DATE OF EXAM: Jul 13 2021 10:16AM WOX 5291 - XR CHEST 2V FRONTAL/LAT / PROCEDURE REASON: multiple diagnoses * * * * Physician Interpretation * * * * EXAMINATION: CHEST RADIOGRAPH (2 VIEW FRONTAL & LATERAL) CLINICAL HISTORY: SOB (shortness of breath) LRTI (lower respiratory tract infection) MQ: XC2_6 EXAM DATE/TIME: 07/13/2021 10:16 AM COMPARISON: Chest x-ray dated January 24, 2021 RESULT: Lines, tubes, and devices: None. Lungs and pleura: No consolidation. No lung mass. No pleural effusion. No pneumothorax. Cardiomediastinal silhouette: Normal cardiomediastinal silhouette. Bones and soft tissues: Osteopenia and degenerative changes in the spine. IMPRESSION IMPRESSION: No acute radiographic abnormality. Hog Killer: BERNIE Transcribe Date/Time: Jul 13 2021 10:18A Dictated by : SILVIO WORTHY MD This examination was interpreted and the report reviewed and electronically signed by: SILVIO WORTHY MD on Jul 13 2021 10:19AM EST [facility] Radiology Study observation (narrative) [facility] XR Chest PA and LateralOrder ed By: Ccf Provider on 07-13-2021 [facility] XR Ribs - right Views and est PAon 05-25-2021 IMPRESSION: No acute process is seen. Hog Killer: BERNIE Transcribe Date/Time: May 25 2021 4:16P Dictated by : SHAR ESTEBAN MD This examination was interpreted and the report reviewed and electronically signed by: SHAR ESTEBAN MD on May 25 2021 4:18PM EST DIVISION OF RADIOLOGY * * *Final Report* * * DATE OF EXAM: May 25 2021 3:14PM WOX 5244 - XR RIB/CHST 3V AP RIB/OBL/CHST R / PROCEDURE REASON: Rib pain * * * * Physician Interpretation * * * * History: Rib pain FINDINGS: Frontal view of the chest and additional views of the right ribs have been obtained. Correlation is made with prior chest x-ray of 01/24/2021. No acute parenchymal or pleural process is seen. There is no pleural effusion or pneumothorax. Visualized osseous structures demonstrate no acute bony abnormality. Degenerative change of the right acromioclavicular joint with narrowing and spurring noted. Degenerative changes of the thoracic spine appear stable. DIVISION OF RADIOLOGY Provider, Austin Maldonado [facility] - 05/25/2021 * * *Final Report* * * DATE OF EXAM: May 25 2021 3:14PM WOX 5244 - XR RIB/CHST 3V AP RIB/OBL/CHST R / PROCEDURE REASON: Rib pain * * * * Physician Interpretation * * * * History: Rib pain FINDINGS: Frontal view of the chest and additional views of the right ribs have been obtained. Correlation is made with prior chest x-ray of 01/24/2021. No acute parenchymal or pleural process is seen. There is no pleural effusion or pneumothorax. Visualized osseous structures demonstrate no acute bony abnormality. Degenerative change of the right acromioclavicular joint with narrowing and spurring noted. Degenerative changes of the thoracic spine appear stable. IMPRESSION IMPRESSION: No acute process is seen. Hog Killer: BERNIE Transcribe Date/Time: May 25 2021 4:16P Dictated by : SHAR ESTEBAN MD This examination was interpreted and the report reviewed and electronically signed by: SHAR ESTEBAN MD on May 25 2021 4:18PM EST [facility] Radiology Study observation (narrative) [facility] XR Ribs - right Views and Ch est PAOrdered By: Ccf Provider on 05-25-2021 [facility] XR Chest PA and Lateralon IMPRESSION: No acute radiographic abnormality is evident. Hog Killer: PSCB Transcribe Date/Time: Jan 24 2021 2:44P Dictated by : LILA SABA MD This examination was interpreted and the report reviewed and electronically signed by: LILA SABA MD on Jan 24 2021 2:47PM [facility] DIVISION OF RADIOLOGY * * *Final Report* * * DATE OF EXAM: Jan 24 2021 2:41PM WOX 5291 - XR CHEST 2V FRONTAL/LAT / PROCEDURE REASON: SOB (shortness of breath) * * * * Physician Interpretation * * * * EXAMINATION: CHEST RADIOGRAPH (2 VIEW FRONTAL & LATERAL) CLINICAL HISTORY: SOB (shortness of breath) MQ: XC2_6 EXAM DATE/TIME: 01/24/2021 2:41 PM COMPARISON: 04/02/2013 RESULT: Lines, tubes, and devices: None. Lungs and pleura: No focal consolidation, pleural effusion or pneumothorax. Cardiomediastinal silhouette: Stable Bones and soft tissues: No acute osseous abnormality. Degenerative changes are present in the thoracic spine. DIVISION OF RADIOLOGY Provider, [facility] - 01/24/2021 * * *Final Report* * * DATE OF EXAM: Jan 24 2021 2:41PM WOX 5291 - XR CHEST 2V FRONTAL/LAT / PROCEDURE REASON: SOB (shortness of breath) * * * * Physician Interpretation * * * * EXAMINATION: CHEST RADIOGRAPH (2 VIEW FRONTAL & LATERAL) CLINICAL HISTORY: SOB (shortness of breath) MQ: XC2_6 EXAM DATE/TIME: 01/24/2021 2:41 PM COMPARISON: 04/02/2013 RESULT: Lines, tubes, and devices: None. Lungs and pleura: No focal consolidation, pleural effusion or pneumothorax. Cardiomediastinal silhouette: Stable Bones and soft tissues: No acute osseous abnormality. Degenerative changes are present in the thoracic spine. IMPRESSION IMPRESSION: No acute radiographic abnormality is evident. Hog Killer: PSCB Transcribe Date/Time: Jan 24 2021 2:44P Dictated by : LILA SABA MD This examination was interpreted and the report reviewed and electronically signed by: LILA SABA MD on Jan 24 2021 2:47PM [facility] Radiology Study observation (narrative) [facility] XR Chest PA and LateralOrder ed By: Ccf Provider on 01-24-2021 [facility] Vital Signs Date Time Vital Sign Value Performing Clinician Lucho saldaña 06-23-2024 14:37-0400 Body mass index (BMI) [Ratio] 39.56 kg/m2 Sunny Simin SWEATBAND DECORATING 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.[employer]CAN SHELLER Work Phone: [facility] 06-23-2024 14:37-0400 Body weight 136 kg Sunny Simin SWEATBAND DECORATING 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.PECAN SHELLER Work Phone: [facility] 06-23-2024 14:37-0400 Diastolic blood pressure 77 mm[Hg] Sunny Simin SWEATBAND DECORATING 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.PECAN SHELLER Work Phone: [facility] 06-23-2024 14:37-0400 Heart rate 82 /min Sunny Simin SWEATBAND DECORATING 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.PECAN SHELLER Work Phone: [facility] 06-23-2024 14:37-0400 Respiratory rate 18 /min Sunny Simin SWEATBAND DECORATING 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.PECAN SHELLER Work Phone: [facility] 06-23-2024 14:37-0400 SaO2% (BldA) [Mass fraction] 95 % Sunny Simin SWEATBAND DECORATING 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.PECAN SHELLER Work Phone: [facility] 06-23-2024 14:37-0400 Systolic blood pressure 155 mm[Hg] Sunny Simin SWEATBAND DECORATING 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.PECAN SHELLER Work Phone: [facility] 06-20-2024 15:38-0400 Body height 185.4 cm Jeff Vigren MD Work Phone: [facility] 06-20-2024 15:38-0400 Body mass index (BMI) [Ratio] 39.76 kg/m2 Jeff Virgen MD Work Phone: [facility] 06-20-2024 15:38-0400 Body weight 136.71 kg Jeff Virgen MD Work Phone: [facility] 06-20-2024 15:38-0400 Diastolic blood pressure 56 mm[Hg] Jeff Virgen MD Work Phone: [facility] 06-20-2024 15:38-0400 Heart rate 80 /min Jeff Virgen MD Work Phone: [facility] 06-20-2024 15:38-0400 SaO2% (BldA) [Mass fraction] 94 % Jeff Virgen MD Work Phone: [facility] 06-20-2024 15:38-0400 Systolic blood pressure 132 mm[Hg] Jeff Virgen MD Work Phone: [facility] 04-09-2024 14:25-0400 Body mass index (BMI) [Ratio] 40.9 kg/m2 Andrew Pendlebury SWEATBAND DECORATING 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.PECAN SHELLER Work Phone: [facility] 04-09-2024 14:25-0400 Body temperature 98.8 [degF] [facility] SWEATBAND DECORATING 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.PECAN SHELLER Work Phone: [facility] 04-09-2024 14:25-0400 Body weight 140.6 kg [facility] SWEATBAND DECORATING 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.PECAN SHELLER Work Phone: [facility] 04-09-2024 14:25-0400 Diastolic blood pressure 84 mm[Hg] Andrew Pendlebury SWEATBAND DECORATING 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.PECAN SHELLER Work Phone: [facility] 04-09-2024 14:25-0400 Heart rate 94 /min Andrew Pendlebury SWEATBAND DECORATING 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.PECAN SHELLER Work Phone: [facility] 04-09-2024 14:25-0400 Respiratory rate 20 /min [facility] SWEATBAND DECORATING 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.PECAN SHELLER Work Phone: [facility] 04-09-2024 14:25-0400 SaO2% (BldA) [Mass fraction] 93 % [facility] SWEATBAND DECORATING 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.PECAN SHELLER Work Phone: [facility] 04-09-2024 14:25-0400 Systolic blood pressure 128 mm[Hg] Andrew Pendlebury SWEATBAND DECORATING 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.PECAN SHELLER Work Phone: [facility] 02-28-2024 11:50-0400 Diastolic blood pressure 86 mm[Hg] FERNY Travis PA-C Work Phone: [facility] 02-28-2024 11:50-0400 Systolic blood pressure 148 mm[Hg] NA Travis PA-C Work Phone: [facility] 02-28-2024 11:00-0400 Body mass index (BMI) [Ratio] 40.69 kg/m2 NA Travis PA-C Work Phone: [facility] 02-28-2024 11:00-0400 Body weight 139.89 kg NA Travis PA-C Work Phone: [facility] 02-28-2024 11:00-0400 Heart rate 85 /min NA Travis PA-C Work Phone: [facility] 02-28-2024 11:00-0400 SaO2% (BldA) [Mass fraction] 94 % NA Travis PA-C Work Phone: [facility] 02-04-2024 11:33-0400 Body mass index (BMI) [Ratio] 39.18 kg/m2 NA Travis PA-C Work Phone: [facility] 02-04-2024 11:33-0400 Body weight 134.72 kg NA Travis PA-C Work Phone: [facility] 02-04-2024 11:33-0400 Diastolic blood pressure 69 mm[Hg] NA Travis PA-C Work Phone: [facility] 02-04-2024 11:33-0400 Heart rate 73 /min NA Travis PA-C Work Phone: [facility] 02-04-2024 11:33-0400 Respiratory rate 18 /min NA Travis PA-C Work Phone: [facility] 02-04-2024 11:33-0400 SaO2% (BldA) [Mass fraction] 94 % NA Travis PA-C Work Phone: [facility] 02-04-2024 11:33-0400 Systolic blood pressure 113 mm[Hg] NA Travis PA-C Work Phone: [facility] 12-25-2023 13:44-0400 Body weight 130.18 kg Jeff Virgen MD Work Phone: [facility] 12-25-2023 13:44-0400 Diastolic blood pressure 80 mm[Hg] Jeff Virgen MD Work Phone: [facility] 12-25-2023 13:44-0400 Heart rate 73 /min Jeff Virgen MD Work Phone: [facility] 12-25-2023 13:44-0400 Respiratory rate 18 /min Jeff Virgen MD Work Phone: [facility] 12-25-2023 13:44-0400 SaO2% (BldA) [Mass fraction] 96 % Jeff Virgen MD Work Phone: [facility] 12-25-2023 13:44-0400 Systolic blood pressure 122 mm[Hg] Jeff Virgen MD Work Phone: [facility] 07-23-2023 14:18-0500 Diastolic blood pressure 70 mm[Hg] Jarvis Nicole MD Work Phone: [facility] 07-23-2023 14:18-0500 Heart rate 64 /min Jarvis Nicole MD Work Phone: [facility] 07-23-2023 14:18-0500 Respiratory rate 20 /min Jarvis Nicole MD Work Phone: [facility] 07-23-2023 14:18-0500 SaO2% (BldA) [Mass fraction] 96 % Jarvis Nicole MD Work Phone: [facility] 07-23-2023 14:18-0500 Systolic blood pressure 128 mm[Hg] Jarvis Nicole MD Work Phone: [facility] 06-09-2023 10:41-0400 Body temperature 98.6 [degF] Jarvis Nicole MD Work Phone: [facility] 06-09-2023 10:41-0400 Body weight 132.45 kg Jarvis Nicole MD Work Phone: [facility] 06-09-2023 10:41-0400 Diastolic blood pressure 68 mm[Hg] Jarvis Nicole MD Work Phone: [facility] 06-09-2023 10:41-0400 Heart rate 79 /min Jarvis Nicole MD Work Phone: [facility] 06-09-2023 10:41-0400 Respiratory rate 30 /min Jarvis Nicole MD Work Phone: [facility] 06-09-2023 10:41-0400 SaO2% (BldA) [Mass fraction] 93 % Jarvis Nicole MD Work Phone: [facility] 06-09-2023 10:41-0400 Systolic blood pressure 124 mm[Hg] Jarvis Nicole MD Work Phone: [facility] 06-06-2023 10:25-0400 Body height 185.4 cm Jeff Virgen MD Work Phone: [facility] 06-06-2023 10:25-0400 Body weight 134.17 kg Jeff Virgen MD Work Phone: [facility] 06-06-2023 10:25-0400 Diastolic blood pressure 64 mm[Hg] Jeff Virgen MD Work Phone: [facility] 06-06-2023 10:25-0400 Heart rate 77 /min Jeff Virgen MD Work Phone: [facility] 06-06-2023 10:25-0400 SaO2% (BldA) [Mass fraction] 97 % Jeff Virgen MD Work Phone: [facility] 06-06-2023 10:25-0400 Systolic blood pressure 130 mm[Hg] Jeff Virgen MD Work Phone: [facility] 05-18-2023 15:03-0400 Body height 185.4 cm NA Travis PA-C Work Phone: [facility] 05-18-2023 15:03-0400 Body temperature 97.11 [degF] NA Travis PA-C Work Phone: [facility] 05-18-2023 15:03-0400 Body weight 131 kg NA Travis PA-C Work Phone: [facility] 05-18-2023 15:03-0400 Diastolic blood pressure 64 mm[Hg] NA Travis PA-C Work Phone: [facility] 05-18-2023 15:03-0400 Heart rate 72 /min NA Travis PA-C Work Phone: [facility] 05-18-2023 15:03-0400 SaO2% (BldA) [Mass fraction] 96 % NA Travis PA-C Work Phone: [facility] 05-18-2023 15:03-0400 Systolic blood pressure 104 mm[Hg] NA Travis PA-C Work Phone: [facility] 05-01-2023 14:23-0400 Body temperature 97.9 [degF] NA Travis PA-C Work Phone: [facility] 05-01-2023 14:23-0400 Diastolic blood pressure 70 mm[Hg] NA Travis PA-C Work Phone: [facility] 05-01-2023 14:23-0400 Heart rate 80 /min NA Travis PA-C Work Phone: [facility] 05-01-2023 14:23-0400 Respiratory rate 20 /min NA Travis PA-C Work Phone: [facility] 05-01-2023 14:23-0400 SaO2% (BldA) [Mass fraction] 96 % NA Travis PA-C Work Phone: [facility] 05-01-2023 14:23-0400 Systolic blood pressure 118 mm[Hg] NA Travis PA-C Work Phone: [facility] 04-30-2023 14:11-0400 Body weight 132.9 kg NA Travis PA-C Work Phone: [facility] 04-30-2023 14:11-0400 Diastolic blood pressure 68 mm[Hg] NA Travis PA-C Work Phone: [facility] 04-30-2023 14:11-0400 Heart rate 75 /min NA Travis PA-C Work Phone: [facility] 04-30-2023 14:11-0400 Respiratory rate 18 /min NA Travis PA-C Work Phone: [facility] 04-30-2023 14:11-0400 SaO2% (BldA) [Mass fraction] 95 % NA Travis PA-C Work Phone: [facility] 04-30-2023 14:11-0400 Systolic blood pressure 114 mm[Hg] NA Travis PA-C Work Phone: [facility] 03-05-2023 15:22-0400 Body temperature 97.3 [degF] [facility] SWEATBAND DECORATING 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.PECAN SHELLER Work Phone: [facility] 03-05-2023 15:22-0400 Body weight 138.26 [facility] SWEATBAND DECORATING 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.PECAN SHELLER Work Phone: [facility] 03-05-2023 15:22-0400 Diastolic blood pressure 62 mm[Hg] Andrew Pendlebury SWEATBAND DECORATING 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.PECAN SHELLER Work Phone: [facility] 03-05-2023 15:22-0400 Heart rate 82 /min Andrew Pendlebury SWEATBAND DECORATING 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.PECAN SHELLER Work Phone: [facility] 03-05-2023 15:22-0400 Respiratory rate 20 /min [facility] SWEATBAND DECORATING 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.PECAN SHELLER Work Phone: [facility] 03-05-2023 15:22-0400 SaO2% (BldA) [Mass fraction] 94 % [facility] SWEATBAND DECORATING 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.PECAN SHELLER Work Phone: [facility] 03-05-2023 15:22-0400 Systolic blood pressure 120 mm[Hg] [facility] SWEATBAND DECORATING 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.PECAN SHELLER Work Phone: [facility] 03-02-2023 16:23-0400 Body weight 137.44 kg Jeff Virgen MD Work Phone: [facility] 03-02-2023 16:23-0400 Diastolic blood pressure 60 mm[Hg] Jeff Virgen MD Work Phone: [facility] 03-02-2023 16:23-0400 Heart rate 76 /min Jeff Virgen MD Work Phone: [facility] 03-02-2023 16:23-0400 SaO2% (BldA) [Mass fraction] 93 % Jeff Virgen MD Work Phone: [facility] 03-02-2023 16:23-0400 Systolic blood pressure 112 mm[Hg] Jeff Virgen MD Work Phone: [facility] 02-16-2023 14:38-0400 Diastolic blood pressure 80 mm[Hg] Denisha Haagen SWEATBAND DECORATING 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.PECAN SHELLER Work Phone: [facility] 02-16-2023 14:38-0400 Heart rate 82 /min Denisha Haagen SWEATBAND DECORATING 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.PECAN SHELLER Work Phone: [facility] 02-16-2023 14:38-0400 Respiratory rate 16 /min Denisha Haagen SWEATBAND DECORATING 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.PECAN SHELLER Work Phone: [facility] 02-16-2023 14:38-0400 SaO2% (BldA) [Mass fraction] 94 % Denisha Haagen SWEATBAND DECORATING 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.PECAN SHELLER Work Phone: [facility] 02-16-2023 14:38-0400 Systolic blood pressure 142 mm[Hg] Denisha Haagen SWEATBAND DECORATING 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.PECAN SHELLER Work Phone: [facility] 01-19-2023 14:18-0400 Body weight 137.44 kg Jeff Virgen MD Work Phone: [facility] 01-19-2023 14:18-0400 Diastolic blood pressure 72 mm[Hg] Jeff Virgen MD Work Phone: [facility] 01-19-2023 14:18-0400 Heart rate 86 /min Jeff Virgen MD Work Phone: [facility] 01-19-2023 14:18-0400 Respiratory rate 16 /min Jeff Virgen MD Work Phone: [facility] 01-19-2023 14:18-0400 Systolic blood pressure 134 mm[Hg] Jeff Virgen MD Work Phone: [facility] 11-29-2022 09:33-0400 Body height 185.4 cm Jeff Virgen MD Work Phone: [facility] 11-29-2022 09:33-0400 Body weight 137.89 kg Jeff Virgen MD Work Phone: [facility] 11-29-2022 09:33-0400 Diastolic blood pressure 68 mm[Hg] Jeff Virgen MD Work Phone: [facility] 11-29-2022 09:33-0400 Heart rate 85 /min Jeff Virgen MD Work Phone: [facility] 11-29-2022 09:33-0400 SaO2% (BldA) [Mass fraction] 96 % Jeff Virgen MD Work Phone: [facility] 11-29-2022 09:33-0400 Systolic blood pressure 136 mm[Hg] Jeff Virgen MD Work Phone: [facility] 05-31-2022 10:38-0400 Body height 185.4 cm Jeff Virgen MD Work Phone: [facility] 05-31-2022 10:38-0400 Body weight 136.08 kg Jeff Virgen MD Work Phone: [facility] 05-31-2022 10:38-0400 Diastolic blood pressure 68 mm[Hg] Jeff Virgen MD Work Phone: [facility] 05-31-2022 10:38-0400 Heart rate 87 /min Jeff Viregn MD Work Phone: [facility] 05-31-2022 10:38-0400 SaO2% (BldA) [Mass fraction] 94 % Jeff Virgen MD Work Phone: [facility] 05-31-2022 10:38-0400 Systolic blood pressure 136 mm[Hg] Jeff Virgen MD Work Phone: [facility] 04-08-2022 14:43-0400 Body temperature 97.5 [degF] Andrew Pendlebury SWEATBAND DECORATING 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.PECAN SHELLER Work Phone: [facility] 04-08-2022 14:43-0400 Body weight 137.26 kg [facility] SWEATBAND DECORATING 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.PECAN SHELLER Work Phone: [facility] 04-08-2022 14:43-0400 Diastolic blood pressure 60 mm[Hg] Andrew Pendlebury SWEATBAND DECORATING 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.PECAN SHELLER Work Phone: [facility] 04-08-2022 14:43-0400 Heart rate 80 /min Andrew Pendlebury SWEATBAND DECORATING 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.PECAN SHELLER Work Phone: [facility] 04-08-2022 14:43-0400 Respiratory rate 21 /min [facility] SWEATBAND DECORATING 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.PECAN SHELLER Work Phone: [facility] 04-08-2022 14:43-0400 SaO2% (BldA) [Mass fraction] 97 % [facility] SWEATBAND DECORATING 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.PECAN SHELLER Work Phone: [facility] 04-08-2022 14:43-0400 Systolic blood pressure 136 mm[Hg] Andrew Pendlebury SWEATBAND DECORATING 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.PECAN SHELLER Work Phone: [facility] 03-03-2022 10:26-0400 Body weight 136.53 kg Jeff Virgen MD Work Phone: [facility] 03-03-2022 10:26-0400 Diastolic blood pressure 74 mm[Hg] Jeff Virgen MD Work Phone: [facility] 03-03-2022 10:26-0400 Heart rate 78 /min Jeff Virgen MD Work Phone: [facility] 03-03-2022 10:26-0400 SaO2% (BldA) [Mass fraction] 95 % Jeff Virgen MD Work Phone: [facility] 03-03-2022 10:26-0400 Systolic blood pressure 124 mm[Hg] Jeff Virgen MD Work Phone: [facility] 01-27-2022 14:46-0400 Body temperature 97.9 [degF] Saad Park SWEATBAND DECORATING 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.PECAN SHELLER Work Phone: [facility] 01-27-2022 14:46-0400 Body weight 136.62 kg Saad Park SWEATBAND DECORATING 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.PECAN SHELLER Work Phone: [facility] 01-27-2022 14:46-0400 Diastolic blood pressure 74 mm[Hg] Saad Park SWEATBAND DECORATING 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.PECAN SHELLER Work Phone: [facility] 01-27-2022 14:46-0400 Heart rate 85 /min Saad Park SWEATBAND DECORATING 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.PECAN SHELLER Work Phone: [facility] 01-27-2022 14:46-0400 Respiratory rate 18 /min Saad Park SWEATBAND DECORATING 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.PECAN SHELLER Work Phone: [facility] 01-27-2022 14:46-0400 SaO2% (BldA) [Mass fraction] 95 % Saad Park SWEATBAND DECORATING 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.PECAN SHELLER Work Phone: [facility] 01-27-2022 14:46-0400 Systolic blood pressure 128 mm[Hg] Saad Park SWEATBAND DECORATING 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.PECAN SHELLER Work Phone: [facility] 01-12-2022 14:41-0400 Diastolic blood pressure 75 mm[Hg] Kaitlyn Cuevasgo formerly [facility] Work Phone: [facility] 01-12-2022 14:41-0400 Heart rate 74 [facility] 01-12-2022 14:41-0400 Systolic blood pressure 132 mm[Hg] [facility] Encounters Encounter Date Encounter Type Care Provider Facility Start: 07-09-2024 End: 07-09-2024 Refill Jeff Virgen MD Work Phone: [facility] Comment on above: Refill Request Start: 06-23-2024 End: 06-23-2024 ambulatory M LUIS TRAVIS Facility:[facility] Start: 06-23-2024 End: 06-23-2024 Patient encounter procedure Sunny Duval SWEATBAND DECORATING 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.PECAN SHELLER Work Phone: Neurology Comment on above: Snoring (Primary Dx) ; Witnessed episode of apnea; Nocturnal leg movements; Frequent nocturnal awakening; Nocturia Start: 06-23-2024 End: 06-24-2024 Telephone encounter Jeff Virgen MD Work Phone: [facility] Comment on above: Results Start: 06-20-2024 End: 06-20-2024 Refill Zoila Wright APRN.PECAN SHELLER Work Phone: [facility] Comment on above: Refill Request Essential hypertensi on (Primary Dx); Paroxysmal atrial fibrillation (HCC); Right bundle branch 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 (LAFB); 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); Other psoriasis; Schizophrenia, chronic condition (HCC); Obesity, Class II, BMI 35-39.9; Chronic anticoagulation; History of bladder cancer; Benign prostatic hyperplasia without lower urinary tract symptoms; Fatigue, unspecified type; Mixed hyperlipidemia; Disorder of bone; 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, macular edema presence unspecified, unspecified laterality (HCC); Need for vaccination; Lymphedema of left leg; Psoriatic arthritis (HCC) Start: 06-18-2024 End: 06-23-2024 Telephone encounter Jeff Virgen MD Work Phone: [facility] [place] Comment on above: Patient Question Start: 06-17-2024 End: 06-17-2024 Telephone encounter Jeff Virgen MD Work Phone: [facility] Start: 06-16-2024 End: 06-16-2024 ambulatory Jeff Virgen MD Work Phone: [facility] Comment on above: Scooter Start: 06-11-2024 End: 06-11-2024 ambulatory JEFF VIRGEN Facility:[facility] Start: 06-08-2024 End: 06-09-2024 Refill Jeff Virgen MD Work Phone: [facility] Comment on above: Refill Request Start: 05-31-2024 End: 05-31-2024 ambulatory Sachin Theodore RN NURSE SINTER FEEDER Comment on above: Dizziness Start: 05-31-2024 End: 05-31-2024 Patient encounter procedure Amairani Mcclendon APRN.PECAN SHELLER Work Phone: [facility] Comment on above: Generalized weakness (Primary Dx) Start: 05-07-2024 End: 05-07-2024 Chart abstracting Jeff Virgen MD Work Phone: [facility] Start: 05-05-2024 End: 05-05-2024 Refill Jeff Virgen MD Work Phone: [facility] [place] Comment on above: Refill Request Start: 04-14-2024 Refill Jeff Virgen MD Work Phone: [facility] Comment on above: Refill Request Start: 04-12-2024 End: 04-12-2024 [facility] Start: 04-11-2024 ambulatory Randi Turner RN NURSE SINTER FEEDER Comment on above: Patient Update; Bloo d In Urine Encounter for medica l assessment (Primary Dx) Start: 04-11-2024 Patient encounter status Magalie Bardales DO Work Phone: [facility] Work Phone: Start: 04-11-2024 Telemedicine consult ation with patient Magalie Bardaels DO Work Phone: [facility] Medicine Start: 04-10-2024 Refill Jeff Virgen MD Work Phone: [facility] Comment on above: Refill Request Start: 04-09-2024 End: 04-09-2024 ambulatory JEFF VIRGEN Facility:[facility] Start: 04-09-2024 End: 04-09-2024 Office outpatient visit 15 minutes Andrew Guallpa APRN.PECAN SHELLER Work Phone: [facility] Comment on above: Abrasion of left verma d, initial encounter (Primary Dx) Start: 04-08-2024 ambulatory Jeff Virgen MD Work Phone: [facility] [place] Comment on above: Scooter Start: 03-21-2024 ambulatory M Luis Brett on PA-C Work Phone: [facility] Comment on above: Test Results Start: 03-21-2024 Telephone encounter Osvaldo Travis PA-C Work Phone: [facility] [place] Start: 03-19-2024 Telephone encounter Osvaldo Travis PA-C Work Phone: [facility] [place] Comment on above: Results Start: 03-19-2024 End: 03-19-2024 ambulatory Osvaldo TRAVIS Facility:[facility] Start: 03-17-2024 End: 03-17-2024 ambulatory Osvaldo TRAVIS Facility:[facility] Start: 03-06-2024 Refill Zoila Wright APRN.CNP Work Phone: [facility] Comment on above: Refill Request Start: 02-28-2024 End: 02-28-2024 ambulatory Osvaldo TRAVIS Facility:[facility] Start: 02-28-2024 End: 02-28-2024 Patient encounter procedure Osvaldo Travis PA-C Work Phone: [facility] Comment on above: 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); Venous incompetence; Bilateral leg edema; SOB (shortness of breath); Weight gain; CJ (obstructive sleep apnea); Hypersomnolence; Cushingoid facies Start: 02-12-2024 End: 02-12-2024 ambulatory Nurse [facility] Work Phone: Nurse Phone Triage Start: 02-12-2024 End: 02-12-2024 Telephone follow-up Nurse Intm/[facility] Work Phone: Nurse Phone Triage Comment on above: Follow Up Start: 02-10-2024 ambulatory Osvaldo ruth PA-C Work Phone: [facility] [place] Start: 02-10-2024 Follow-up encounter Osvaldo Travis PA-C Work Phone: [facility] Comment on above: Follow Up Weight Start: 02-04-2024 End: 02-04-2024 ambulatory Jeff Virgen MD Work Phone: [facility] Comment on above: Edema Start: 02-04-2024 End: 02-04-2024 Subsequent hospital visit by physician [facility] Work Phone: Radiology Comment on above: SOB (shortness of br eath) [R06.02] Start: 02-04-2024 End: 02-04-2024 Patient encounter procedure Osvaldo Travis PA-C Work Phone: [facility] [place] Comment on above: SOB (shortness of br eath) (Primary Dx); Bilateral leg edema; Weight increase Start: 01-26-2024 ambulatory Jeff Virgen MD Work Phone: [facility] [place] Comment on above: ACCU CHECK TEST STRI PS Start: 01-18-2024 Refill Jarvis Nicole MD Work Phone: [facility] Comment on above: Refill Request Famotidine Start: 01-09-2024 Refill Zoila Wright SWEATBAND DECORATING 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.PECAN SHELLER Work Phone: [facility] [place] Comment on above: Refill Request Start: 01-01-2024 ambulatory Jeff Virgen MD Work Phone: [facility] [place] Comment on above: Scooter Start: 01-01-2024 Telephone encounter Jeff Virgen MD Work Phone: [facility] [place] Comment on above: Epi méndez Start: 12-30-2023 ambulatory Jeff Virgen MD Work Phone: [facility] Comment on above: Scooter Start: 12-25-2023 End: 12-25-2023 ambulatory JEFF VIRGEN Facility:[facility] Start: 12-25-2023 End: 12-25-2023 Patient encounter procedure Jeff Virgen MD Work Phone: [facility] [place] Comment on above: Paroxysmal atrial fi brillation (HCC) (Primary Dx); Essential hypertension; Mixed hyperlipidemia; Sleep apnea, unspecified type; Restrictive lung disease; 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); Schizophrenia, chronic condition (HCC); Obesity, Class II, BMI 35-39.9; Chronic anticoagulation; Pain of right hip; Psoriatic arthritis (HCC); Type 2 diabetes mellitus without complication, with long-term current use of insulin (HCC) Start: 11-28-2023 End: 11-28-2023 ambulatory JEFF VIRGEN Facility:[facility] Start: 11-14-2023 Refill Jeff Virgen MD Work Phone: [facility] Comment on above: Refill Request Medication Question Orders Start: 11-02-2023 Refill Osvaldo Warren Brett on PA-C Work Phone: [facility] Comment on above: Refill Request Start: 10-12-2023 Refill Jeff Virgen MD Work Phone: [facility] Comment on above: Refill Request Start: 09-06-2023 End: 09-06-2023 Subsequent hospital visit by physician [facility] Work Phone: Radiology Comment on above: Sinobronchitis [J32. 9, J40] Start: 09-06-2023 End: 09-06-2023 ambulatory [facility] MD [facility] Comment on above: Coughing Up Blood Start: 08-27-2023 Refill Jeff Virgen MD Work Phone[facility] Comment on above: Refill Request Start: 08-07-2023 Telephone encounter Jeff Virgen MD [facility] Comment on above: Patient Assistance ( [employer] (Basaglar and Humalog)) Start: 07-23-2023 End: 07-23-2023 Subsequent hospital visit by physician [facility] Work Phone: Radiology Comment on above: Acute hip pain, righ t [M25.551] Start: 07-23-2023 End: 07-23-2023 Patient encounter procedure Jarvis Nicole MD Work Phone: [facility] Comment on above: Acute hip pain, righ t (Primary Dx) Start: 07-23-2023 End: 07-23-2023 ambulatory JEFF VIRGEN Facility:[facility] Start: 07-13-2023 Telephone encounter Jeff Virgen MD Work Phone: [facility] Start: 06-19-2023 Refill Jeff Virgen MD Work Phone: [facility] Comment on above: Refill Request Start: 06-09-2023 ambulatory Adele murrieta RN NURSE [employer] FE[employer]ER Comment on above: Viral Syndrome Start: 06-09-2023 End: 06-09-2023 Subsequent hospital visit by physician [facility] Work Phone: Radiology Comment on above: Viral URI with cough [J06.9] Start: 06-09-2023 End: 06-09-2023 Patient encounter procedure Jarvis Nicole MD Work Phone: [facility] Comment on above: Viral URI with cough (Primary Dx); Suspected COVID-19 virus infection; Bronchitis Start: 06-07-2023 Refill Jeff Virgen MD Work Phone: [facility] [place] Comment on above: Refill Request Start: 06-06-2023 End: 06-06-2023 Patient encounter procedure Jeff Virgen MD Work Phone: [facility] Comment on above: Essential hypertensi on (Primary Dx); Encounter for immunization; Paroxysmal atrial fibrillation (HCC); Mixed hyperlipidemia; Schizophrenia, chronic condition (HCC); Chronic anticoagulation; Type 2 diabetes mellitus with microalbuminuria, with long-term current use of insulin (HCC); Restrictive lung disease Start: 06-04-2023 Telephone encounter Jeff Virgen MD Work Phone: [facility] Comment on above: patient question/lab s Start: 05-18-2023 End: 05-18-2023 Patient encounter procedure Osvaldo Travis PA-C Work Phone: [facility] Comment on above: Near syncope (Primar y Dx); Fall, initial encounter; Acute upper respiratory infection; Morbid obesity (HCC) Start: 05-16-2023 Refill Jeff Virgen MD Work Phone: [facility] Comment on above: Refill Request Start: 05-11-2023 Telephone encounter Jeff Virgen MD Work Phone: [facility] Comment on above: Forms Start: 05-01-2023 End: 05-01-2023 Patient encounter procedure Osvaldo Travis PA-C Work Phone: [facility] Comment on above: Encounter for post s urgical wound check (Primary Dx) Start: 04-30-2023 End: 04-30-2023 Patient encounter procedure Osvaldo Travis PA-C Work Phone: [facility] Comment on above: Inflamed acrochordon (Primary Dx); Seborrheic keratoses, inflamed Start: 04-26-2023 ambulatory Jeff Virgen MD Work Phone: [facility] Comment on above: Skin Tags Removal Start: 04-12-2023 Refill Jeff Virgen MD Work Phone: [facility] Comment on above: Refill Request Start: 03-19-2023 ambulatory Jeff Virgen MD Work Phone: [facility] Start: 03-19-2023 Patient encounter procedure Shannon Virgen MD Work Phone: [facility] Comment on above: Appointment Start: 03-05-2023 End: 03-05-2023 Office outpatient visit 15 minutes Andrew Guallpa APRN.CNP Work Phone: [facility] Comment on above: Acute constipation ( Primary Dx) Start: 03-02-2023 End: 03-02-2023 Patient encounter procedure Jeff Virgen MD Work Phone: [facility] Comment on above: Nausea (Primary Dx); Hypoglycemia; Type 2 diabetes mellitus with microalbuminuria, with long-term current use of insulin (HCC); Leukocytosis, unspecified type; Abnormal serum level of lipase; Benign prostatic hyperplasia with lower urinary tract symptoms, symptom details unspecified; Urinary retention Start: 02-22-2023 Refill Jeff Virgen MD Work Phone: [facility] Comment on above: Refill Request (medi cation question ) Start: 02-16-2023 End: 02-16-2023 Subsequent hospital visit by physician [facility] [place] Work Phone: Radiology Comment on above: Acute left ankle stone n [M25.572] Start: 02-16-2023 End: 02-16-2023 Office outpatient visit 15 minutes Denisha Shepard APRN.PECAN SHELLER Work Phone: [facility] Comment on above: Acute left ankle stone n (Primary Dx) Start: 02-16-2023 Telephone encounter Denisha hess APRN.PECAN SHELLER Work Phone: [facility] [place] Comment on above: Results Start: 02-16-2023 Unlisted evaluation and management service Denisha Shepard APRN.PECAN SHELLER Work Phone: [facility] Comment on above: Opened In Error Start: 02-14-2023 End: 02-14-2023 Nursing evaluation of patient and report Nurse [facility] Work Phone: General Surgery Comment on above: Lesion of subcutaneo us tissue (Primary Dx) Start: 01-19-2023 End: 01-19-2023 Patient encounter procedure Jeff Virgen MD Work Phone: [facility] Comment on above: Skin mass (Primary D x) Start: 11-29-2022 End: 11-29-2022 Patient encounter procedure Jeff Virgen MD Work Phone[facility] [facility] Comment on above: Chest pain, unspecif ied type (Primary Dx); Leukocytosis, unspecified type; Type 2 diabetes mellitus with microalbuminuria, with long-term current use of insulin (HCC); Schizophrenia, chronic condition (HCC); Paroxysmal atrial fibrillation (HCC); Essential hypertension; Pure hypercholesterolemia Start: 11-25-2022 Telephone encounter Jeff Virgen MD Work Phone: [facility] [place] Comment on above: Orders Start: 11-22-2022 Patient Outreach Jeff perez MD Work Phone: [facility] Comment on above: Transition Of Care ( [facility] 11/21-11/21 dx: chest pain) Start: 11-10-2022 Refill Jeff Virgen MD Work Phone: [facility] [place] Comment on above: Refill Request Start: 10-26-2022 Telephone encounter Kaitlyn perez formerly [facility] Work Phone: [facility] Comment on above: Medication Question Start: 10-16-2022 ambulatory Kaitlyn Hernández [facility] Work Phone: [facility] Comment on above: Carmela free trial ca rd Start: 10-16-2022 E-mail encounter deloris m caregiver Kaitlyn Hernández formerly [facility] Work Phone: [facility] Start: 10-16-2022 Telephone encounter Kaitlyn perez formerly [facility] Work Phone: [facility] Comment on above: Medication Question Start: 10-03-2022 Refill Jeff Virgen MD Work Phone: [facility] [place] Comment on above: Refill Request Start: 09-29-2022 Telephone encounter Kaitlyn perez formerly [facility] Work Phone: [facility] Comment on above: Medication Question Start: 09-25-2022 Telephone encounter Jeff Virgen MD Work Phone: [facility] [place] Comment on above: Ashley [employer] Forms for Insulin Start: 08-21-2022 Refill Jeff Virgen MD Work Phone: [facility] [place] Comment on above: Refill Request Start: 08-07-2022 ambulatory Jeff Virgen MD Work Phone: [facility] [place] Comment on above: Insulin Needle broke in stomach Start: 06-22-2022 Telephone encounter Kaitlyn perez formerly [facility] Work Phone: [facility] Comment on above: Forms (Wilmar good assistance application) Start: 06-22-2022 End: 06-22-2022 Patient encounter procedure Kaitlyn Hernández formerly [facility] Work Phone: [facility] Comment on above: Type 2 diabetes debbie itus without complication, with long-term current use of insulin ([facility]) (Primary Dx) Start: 05-31-2022 End: 05-31-2022 Patient encounter procedure Jeff Virgen MD Work Phone: [facility] [place] Comment on above: Essential hypertensi on (Primary Dx); Paroxysmal atrial fibrillation (HCC); Pure hypercholesterolemia; Type 2 diabetes mellitus with microalbuminuria, with long-term current use of insulin (HCC); Chronic anticoagulation; Monocytosis; Need for influenza vaccination Start: 05-08-2022 Refill Jeff Virgen MD Work Phone: [facility] Comment on above: Refill Request Start: 04-08-2022 End: 04-08-2022 Patient encounter procedure Andrew Guallpa APRN.[facility] Work Phone: [facility] Comment on above: Chest pain, unspecif ied type (Primary Dx); Accidental medication error, initial encounter Start: 03-23-2022 Telephone encounter Kaitlyn perez formerly [facility] Work Phone: [facility] Comment on above: Forms (Basaglar PAP) Start: 03-23-2022 End: 03-23-2022 Patient encounter procedure Kaitlyn Hernández formerly [facility] Work Phone: [facility] Comment on above: Type 2 diabetes debbie itus without complication, with long-term current use of insulin (HCC) (Primary Dx); Essential hypertension Start: 03-06-2022 Telephone encounter Jeff Virgen MD Work Phone: [facility] [place] Comment on above: Forms (Ashley [employer] a pplication) Medication Question Start: 03-03-2022 End: 03-03-2022 Patient encounter procedure Jeff Virgen MD Work Phone: [facility] [place] Comment on above: Essential hypertensi on (Primary Dx); Pure hypercholesterolemia; Paroxysmal atrial fibrillation (HCC); Type 2 diabetes mellitus with microalbuminuria, with long-term current use of insulin (HCC); Chronic anticoagulation; Need for hepatitis C screening test Start: 02-09-2022 Telephone encounter Jeff Virgen MD Work Phone: [facility] [place] Comment on above: indigent med Start: 02-06-2022 Telephone encounter Jeff Virgen MD Work Phone: [facility] [place] Comment on above: Patient Request Start: 02-03-2022 End: 02-03-2022 Patient encounter procedure Papito Castnao DO Work Phone: [facility] [place] Comment on above: Gastrocnemius tear, right, initial encounter (Primary Dx) Start: 02-02-2022 Refill Jeff Virgen MD Work Phone: Family [facility] [place] Comment on above: Refill Request Start: 02-01-2022 Refill Jeff Virgen MD Work Phone: [facility] [place] Comment on above: Refill Request (michael ent assistance ) Start: 01-31-2022 Refill Jeff Virgen MD Work Phone: [facility] [place] Comment on above: Prescription Refills Start: 01-27-2022 End: 01-27-2022 Patient encounter procedure Saad Park APRN.CNP Work Phone: [facility] Comment on above: Strain of calf muscl e, right, initial encounter (Primary Dx) Start: 01-12-2022 End: 01-12-2022 Patient encounter procedure Kaitlyn Hernández formerly [facility] Work Phone: [facility] Comment on above: Type 2 diabetes debbie itus without complication, with long-term current use of insulin (HCC) (Primary Dx) Refill Request Start: 12-30-2021 Telephone encounter Jeff Virgen MD Work Phone: Family [facility] [place] Comment on above: Medication Problem Start: 12-29-2021 Refill Jeff Virgen MD Work Phone: [facility] [place] Comment on above: Refill Request Start: 12-15-2021 Telephone encounter Kaitlyn perez formerly [facility] Work Phone: [facility] Comment on above: Forms (Jardiance PAP ) Start: 12-13-2021 Telephone encounter Jeff Virgen MD Work Phone: [facility] [place] Comment on above: Medication Problem Start: 12-12-2021 Refill Jeff Virgen MD Work Phone: [facility] [place] Comment on above: Refill Request Start: 07-13-2021 End: 07-13-2021 Subsequent hospital visit by physician [facility] [place] Work Phone: Radiology Comment on above: SOB (shortness of br eath) [R06.02] Start: 05-25-2021 End: 05-25-2021 Subsequent hospital visit by physician [facility] [place] Work Phone: Radiology Comment on above: phone apt Start: 01-24-2021 End: 01-24-2021 Subsequent hospital visit by physician [facility] [place] Work Phone: Radiology Comment on above: SOB (shortness of br eath) [R06.02] Procedures Date Procedure Procedure Detail Performing Clinician Start: 05-07-2024 Hemoglobin A1c/Hemoglobin.total in Blood [facility] Provider Start: 02-04-2024 Radiologic exam ches t 2 views M [place] Travis PA-C Work Phone: Start: 02-04-2024 Ecg routine ecg w/le ast 12 lds i&r only M [place] Travis PA-C Work Phone: Start: 12-25-2023 Adult depression screening assessment Jeff Virgen MD Work Phone: Start: 09-06-2023 Radiologic exam ches t 2 views Anum Cheung SWEATBAND DECORATING 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.PECAN SHELLER Work Phone: Start: 07-23-2023 Radex hip unilateral with pelvis 2-3 views Jarvis Nicole MD Work Phone: Start: 06-09-2023 Radiologic exam ches t 2 views Jarvis Nicole MD Work Phone: Start: 06-06-2023 INFLUENZA VACCINE, P RSV FREE, AGE 65+ YR, HIGH DOSE, QUADRIVALENT (FLUZONE HIGH-DOSE) Jeff Virgen MD Work Phone: Start: 02-16-2023 Radex ankle complete minimum 3 views Denisha Shepard SWEATBAND DECORATING 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.PECAN SHELLER Work Phone: Start: 05-31-2022 INFLUENZA SEASONAL QUADRIVALENT HIGH DOSE AGE 65+ Jeff Virgen MD Work Phone: Start: 03-03-2022 Adult depression screening assessment Jeff Virgen MD Work Phone: Start: 07-13-2021 Radiologic exam ches t 2 views Jeannette Garcia PA-C Work Phone: Start: 05-25-2021 Radex ribs uni w/posteroant ch minimum 3 views Jeff Virgen MD Work Phone: Start: 01-24-2021 Radiologic exam ches t 2 views Fito Membreno SWEATBAND DECORATING 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.PECAN SHELLER, DNP Work Phone: Start: 07-16-2018 Adult depression screening assessment Jeff Virgen MD Work Phone: Laboratory test resu lt abnormal Abnormal serum level of lipase Jeff Virgen MD Work Phone: Plan of Treatment Date Care Activity Detail Author Start: 06-20-2025 Annual PCP Team Acid Pumper myriam Disease Visit Annual PCP Team Chronic Disease Visit [facility] Start: 06-20-2025 Covid-19 Vaccine ( season) Covid-19 Vaccine ( season) [facility] Comment on above: Postponed from 05/18 (Declined at this time) Start: 06-20-2025 Diabetic foot examination Diabetic F oot Exam [facility] Start: 06-20-2025 Glaucoma screening Dilated Retinal E xam [facility] Start: 06-20-2025 Shingrix Vaccine (1 of 2) So grix Vaccine (1 of 2) [facility] Comment on above: Postponed from 04/07 (Declined at this time) Start: 06-20-2025 Urine microalbumin profile DTaP,Tdap,Td Vaccine (1 - Tdap) [facility] Comment on above: Postponed from 04/07 (Declined at this time) Start: 02-27-2025 Annual PCP Team Acid Pumper myriam Disease Visit Annual PCP Team Chronic Disease Visit [facility] Start: 02-03-2025 Annual PCP Team Acid Pumper myriam Disease Visit Annual PCP Team Chronic Disease Visit [facility] Start: 02-03-2025 BP Controlled (<130/80) BP Controlle d (<130/80) [facility] Start: 12-24-2024 Annual PCP Team Acid Pumper myriam Disease Visit Annual PCP Team Chronic Disease Visit [facility] Start: 12-24-2024 Anxiety Screening Anxiety Screening [facility] Start: 12-24-2024 Covid-19 Vaccine ( season) Covid-19 Vaccine ( season) [facility] Comment on above: Postponed from 05/18 (Declined at this time) Start: 12-24-2024 Depression Screening Depression Scre ening [facility] Start: 12-19-2024 End: 12-19-2024 Patient encounter procedure 12/19/2024 1:40 PM EDT Office Visit Family [facility] [address] [place] [id number] Jeff Virgen MD [address] [place] [id number] 6 mo follow up Family [facility] Comment on above: 6 mo follow up Start: 12-09-2024 Hemoglobin A1c measurement HbA1C [facility] Start: 11-27-2024 Hepatitis B screening Urine Al bumin:Creatinine Ratio [facility] Start: 11-27-2024 Hepatitis B surface antibody level LDL Cholesterol [facility] Start: 11-07-2024 Hemoglobin A1c measurement HbA1C [facility] Start: 09-06-2024 Annual PCP Team Acid Pumper myriam Disease Visit Annual PCP Team Chronic Disease Visit [facility] Start: 09-06-2024 BP Controlled (<130/80) BP Controlle d (<130/80) [facility] Start: 09-06-2024 RSV Vaccine (1 - 1-d ose 60+ series) RSV Vaccine (1 - 1-dose 60+ series) [facility] Comment on above: Postponed from 04/07 (Declined at this time) Start: 09-06-2024 RSV Vaccine (1 - 1-d ose 75+ series) RSV Vaccine (1 - 1-dose 75+ series) [facility] Comment on above: Postponed from 04/07 (Declined at this time) Start: 07-25-2024 End: 07-25-2024 ambulatory 07/25/2024 1:15 PM EST Results Only [facility] [address] [place] [address] Labs [facility] Comment on above: Labs Start: 07-23-2024 Annual PCP Team Acid Pumper myriam Disease Visit Annual PCP Team Chronic Disease Visit [facility] Start: 07-23-2024 BP Controlled (<130/80) BP Controlle d (<130/80) [facility] Start: 06-25-2024 End: 09-24-2024 Comprehensive metabolic 2000 panel - Serum or Plasma COMP METABOLIC PANEL Lab Routine Psoriatic arthritis (HCC) Expected: 06/25/2024, Expires: 09/24/2024 [facility] Work Phone: Comment on above: Expected: 06/25/2024 , Expires: 09/24/2024 Start: 06-25-2024 End: 09-24-2024 Hemoglobin A1c in Blood HGB A1C Lab Routine Type 2 diabetes mellitus without complication, with long-term current use of insulin ([facility]LY [facility]) Expected: 06/25/2024, Expires: 09/24/2024 [facility] Work Phone: Comment on above: Expected: 06/25/2024 , Expires: 09/24/2024 Start: 06-23-2024 End: 06-23-2024 Patient encounter procedure 06/23/2024 2:30 PM EDT Office Visit Neurology [address] [place], [place] [id number] Sunny Duval APRN.PECAN SHELLER [address] [place] [address] CJ (obstructive sleep apnea) [G47.33] Neurology Comment on above: CJ (obstructive sle ep apnea) [G47.33] Start: 06-20-2024 End: 06-20-2024 Patient encounter procedure 06/20/2024 3:40 PM EDT Office Visit [facility] [address] [place], [place] [id number] Jeff Virgen MD [address] [place], [place] [id number] Blood sugar levels [facility] [place] Comment on above: Blood sugar levels Start: 06-20-2024 End: 09-19-2024 25-hydroxyvitamin D3 [Mass/volume] in Serum or Plasma [facility] Work Phone: Comment on above: Expected: 06/20/2024 , Expires: 09/19/2024 Start: 06-20-2024 End: 09-19-2024 CBC W Auto Differential panel - Blood [facility] Comment on above: Expected: 06/20/2024 , Expires: 09/19/2024 Start: 06-20-2024 End: 09-19-2024 Creatine kinase [Enzymatic activity/volume] in Serum or Plasma [facility] Comment on above: Expected: 06/20/2024 , Expires: 09/19/2024 Start: 06-20-2024 End: 09-19-2024 Thyrotropin [Units/volume] in Serum or Plasma [facility] Comment on above: Expected: 06/20/2024 , Expires: 09/19/2024 Start: 06-18-2024 Glaucoma screening Dilated Retinal E xam [facility] Start: 06-09-2024 Annual PCP Team Acid Pumper myriam Disease Visit Annual PCP Team Chronic Disease Visit [facility] Start: 06-09-2024 BP Controlled (<130/80) BP Controlle d (<130/80) [facility] Start: 06-06-2024 3 comp foot exam completed Diabetic Foot Exam [facility] Start: 06-06-2024 Annual PCP Team Acid Pumper myriam Disease Visit Annual PCP Team Chronic Disease Visit [facility] Start: 06-06-2024 Diabetic foot examination Diabetic F oot Exam [facility] Start: 06-06-2024 Hepatitis B Vaccine (1 of 3 - Risk 3-dose series) Hepatitis B Vaccine (1 of 3 - Risk 3-dose series) [facility] Comment on above: Postponed from 04/07 (Declined at this time) Start: 05-18-2024 ANNUAL PCP TEAM 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 MYRIAM DISEASE VISIT ANNUAL PCP TEAM CHRONIC DISEASE VISIT [facility] Start: 05-18-2024 BP CONTROLLED (<130/80) BP CONTROLLE D (<130/80) [facility] Start: 05-18-2024 Covid-19 Vaccine (1 - 2023-24 season) Covid-19 Vaccine ( season) [facility] Start: 05-18-2024 Covid-19 Vaccine ( season) Covid-19 Vaccine () [facility] Start: 05-18-2024 Influenza vaccination Influenza Vacc ine (#1) [facility] Start: 05-01-2024 ANNUAL PCP TEAM 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 MYRIAM DISEASE VISIT ANNUAL PCP TEAM CHRONIC DISEASE VISIT [facility] Start: 05-01-2024 BP CONTROLLED (<130/80) BP CONTROLLE D (<130/80) [facility] Start: 04-30-2024 COVID-19 VACCINE (#1) COVID-19 VACCI NE (#1) [facility] Comment on above: Postponed from 10/08 (Declined at this time) Start: 04-30-2024 SHINGRIX VACCINE (1 of 2) SO GRIX VACCINE (1 of 2) [facility] Comment on above: Postponed from 04/07 (Insurance Coverage) Start: 04-30-2024 Urine microalbumin profile [facility] Comment on above: Postponed from 04/07 (Insurance Coverage) Start: 04-30-2024 End: 04-30-2024 ambulatory 04/30/2024 9:45 AM EDT OT/PT/Speech Visit [facility] [address] [place], [place] [phone] Rosa Orta, PT Venous incompetence [I87.2] [facility] Comment on above: Venous incompetence [I87.2] Start: 04-14-2024 End: 04-14-2024 Patient encounter procedure 04/14/2024 1:40 PM EDT Office Visit Family [facility] [place] [address] [place], [place] [phone] Julianna Hood APRN.PECAN SHELLER [address] [place], [place] [phone] Blood in Urine Family [facility] Comment on above: Blood in Urine Start: 04-10-2024 End: 04-10-2024 Patient encounter procedure 04/10/2024 11:40 AM EDT Office Visit Family Medicine [place] [address] [place] [address] Osvaldo Travis PA-C [address] [place] [address] 6 week f/u [facility] [place] Comment on above: 6 week f/u Start: 03-19-2024 End: 03-19-2024 Patient encounter procedure 03/19/2024 12:30 PM EDT Office Visit Vasculary Surgery [address] 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]; Venous incompetence [I87.2] [facility] Comment on above: Varicose veins of twila th lower extremities with inflammation [I83.11, I83.12]; Venous incompetence [I87.2] Start: 03-17-2024 End: 03-17-2024 Patient encounter procedure 03/17/2024 2:40 PM EDT Office Visit Cardiology [address] [place] [address] Bilateral leg edema [R60.0]; SOB (shortness of breath) [R06.02]; Weight gain [R63.5] Cardiology Comment on above: Bilateral leg edema [R60.0]; SOB (shortness of breath) [R06.02]; Weight gain [R63.5] Start: 03-05-2024 BP CONTROLLED (<130/80) BP CONTROLLE D (<130/80) [facility] Start: 03-02-2024 ANNUAL PCP TEAM 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 MYRIAM DISEASE VISIT ANNUAL PCP TEAM CHRONIC DISEASE VISIT [facility] Start: 03-02-2024 BP CONTROLLED (<130/80) BP CONTROLLE D (<130/80) [facility] Start: 02-28-2024 End: 05-29-2024 Basic metabolic 2000 panel - Serum or Plasma [facility] Work Phone: Comment on above: Expected: 02/28/2024 , Expires: 05/29/2024 Start: 02-28-2024 End: 05-29-2024 Cortisol [Mass/volume] in Serum or Plasma CORTISOL, SERUM Lab Routine Weight gain Hypersomnolence Cushingoid facies Expected: 02/28/2024, Expires: 05/29/2024 [facility] Comment on above: Expected: 02/28/2024 , Expires: 05/29/2024 Start: 02-28-2024 Hemoglobin A1c measurement HbA1C [facility] Start: 02-28-2024 End: 05-29-2024 Natriuretic peptide.B prohormone N-Terminal [Mass/volume] in Serum or Plasma [facility] Comment on above: Expected: 02/28/2024 , Expires: 05/29/2024 Start: 02-28-2024 End: 02-28-2024 Patient encounter procedure 02/28/2024 11:00 AM EDT Office Visit [facility] [place] [address] [place], [place] [phone] Osvaldo Travis PA-C [address] [place], [place] [phone] 4 week follow up [facility] [place] Comment on above: 4 week follow up Start: 02-17-2024 ANNUAL PCP TEAM 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 MYRIAM DISEASE VISIT ANNUAL PCP TEAM CHRONIC DISEASE VISIT [facility] Start: 02-04-2024 End: 05-05-2024 Comprehensive metabolic 2000 panel - Serum or Plasma [facility] Work Phone: Comment on above: Expected: 02/04/2024 , Expires: 05/05/2024 Start: 02-04-2024 End: 05-05-2024 Natriuretic peptide.B prohormone N-Terminal [Mass/volume] in Serum or Plasma [facility] Comment on above: Expected: 02/04/2024 , Expires: 05/05/2024 Start: 02-04-2024 End: 05-05-2024 Thyrotropin [Units/volume] in Serum or Plasma [facility] Comment on above: Expected: 02/04/2024 , Expires: 05/05/2024 Start: 01-20-2024 ANNUAL PCP TEAM 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 MYRIAM DISEASE VISIT ANNUAL PCP TEAM CHRONIC DISEASE VISIT [facility] Start: 12-05-2023 End: 02-04-2024 Basic metabolic 2000 panel - Serum or Plasma BASIC METABOLIC PNL Lab Routine Type 2 diabetes mellitus with microalbuminuria, with long-term current use of insulin (HCC) Expected: 12/05/2023, Expires: 02/04/2024 [facility] Work Phone: Comment on above: Expected: 12/05/2023 , Expires: 02/04/2024 Start: 12-05-2023 End: 02-04-2024 CBC W Auto Differential panel - Blood CBC + DIFF Lab Routine Type 2 diabetes mellitus with microalbuminuria, with long-term current use of insulin (HCC) Expected: 12/05/2023, Expires: 02/04/2024 [facility] Work Phone: Comment on above: Expected: 12/05/2023 , Expires: 02/04/2024 Start: 12-05-2023 End: 02-04-2024 Hemoglobin A1c in Blood HGB A1C Lab Routine Type 2 diabetes mellitus with microalbuminuria, with long-term current use of insulin (HCC) Expected: 12/05/2023, Expires: 02/04/2024 [facility] Work Phone: Comment on above: Expected: 12/05/2023 , Expires: 02/04/2024 Start: 12-05-2023 End: 02-04-2024 Lipid 1996 panel - Serum or Plasma LIPID PANEL BASIC Lab Routine Mixed hyperlipidemia Expected: 12/05/2023, Expires: 02/04/2024 [facility] Work Phone: Comment on above: Expected: 12/05/2023 , Expires: 02/04/2024 Start: 11-30-2023 ANNUAL PCP TEAM 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 MYRIAM DISEASE VISIT ANNUAL PCP TEAM CHRONIC DISEASE VISIT [facility] Start: 11-28-2023 End: 02-27-2024 ALBUMIN/CREAT RATIO RND UR ALBUMIN/CREAT RATIO RND UR Lab Routine Type 2 diabetes mellitus without complication, with long-term current use of insulin (HCC) Expected: 11/28/2023, Expires: 02/27/2024 [facility] Work Phone: Comment on above: Expected: 11/28/2023 , Expires: 02/27/2024 Start: 11-28-2023 Hepatitis B screening URINE AL BUMIN:CREATININE RATIO [facility] Start: 11-28-2023 Hepatitis B surface antibody level LDL CHOLESTEROL [facility] Start: 11-16-2023 Hemoglobin A1c measurement HbA1C [facility] Start: 11-16-2023 Hemoglobin A1c/Hemoglobin.total in Blood HbA1C [facility] Start: 09-17-2023 Advance Directive Discussion Advance Directive Discussion [facility] Start: 09-17-2023 Depression Assessment Depression Ass essment [facility] Start: 06-01-2023 End: 08-01-2023 Hemoglobin A1c in Blood HGB A1C Lab Routine Type 2 diabetes mellitus with microalbuminuria, with long-term current use of insulin (HCC) Expected: 06/01/2023, Expires: 08/01/2023 [facility] Work Phone: Comment on above: Expected: 06/01/2023 , Expires: 08/01/2023 Start: 05-31-2023 3 comp foot exam completed DIABETIC FOOT EXAM [facility] Start: 05-31-2023 ANNUAL PCP TEAM 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 MYRIAM DISEASE VISIT ANNUAL PCP TEAM CHRONIC DISEASE VISIT [facility] Start: 05-30-2023 Hemoglobin A1c/Hemoglobin.total in Blood HBA1C [facility] Start: 05-30-2023 End: 07-30-2023 Lipid 1996 panel - Serum or Plasma LIPID PANEL BASIC Lab Routine Type 2 diabetes mellitus with microalbuminuria, with long-term current use of insulin (HCC) Expected: 05/30/2023, Expires: 07/30/2023 [facility] Work Phone: Comment on above: Expected: 05/30/2023 , Expires: 07/30/2023 Start: 05-18-2023 End: 07-18-2023 Comprehensive metabolic 2000 panel - Serum or Plasma [facility] Work Phone: Comment on above: Expected: 05/18/2023 , Expires: 07/18/2023 Start: 05-18-2023 End: 07-18-2023 Creatine kinase [Enzymatic activity/volume] in Serum or Plasma [facility] Work Phone: Comment on above: Expected: 05/18/2023 , Expires: 07/18/2023 Start: 05-18-2023 Influenza vaccination C [facility] Start: 05-18-2023 End: 07-18-2023 Urinalysis complete panel - Urine [facility] Work Phone: Comment on above: Expected: 05/18/2023 , Expires: 07/18/2023 Start: 05-18-2023 End: 07-18-2023 URINALYSIS, DIPSTICK ONLY [facility] Work Phone: Comment on above: Expected: 05/18/2023 , Expires: 07/18/2023 Start: 03-03-2023 Adult depression screening assessment DEPRESSION SCREENING [facility] Start: 03-03-2023 ANNUAL PCP TEAM 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 MYRIAM DISEASE VISIT ANNUAL PCP TEAM CHRONIC DISEASE VISIT [facility] Start: 03-03-2023 BP CONTROLLED (<130/80) BP CONTROLLE D (<130/80) [facility] Start: 03-02-2023 End: 05-02-2023 Comprehensive metabolic 2000 panel - Serum or Plasma [facility] Work Phone: Comment on above: Expected: 03/02/2023 , Expires: 05/02/2023 Start: 03-02-2023 End: 05-02-2023 Lipase [Enzymatic activity/volume] in Serum or Plasma [facility] Work Phone: Comment on above: Expected: 03/02/2023 , Expires: 05/02/2023 Start: 01-27-2023 BP CONTROLLED (<130/80) BP CONTROLLE D (<130/80) [facility] Start: 11-29-2022 End: 01-29-2023 CBC W Ordered Manual Differential panel - Blood PATHOLOGIST INTERPRETATION WITH CBC AND DIFF Lab Routine Leukocytosis, unspecified type Expected: 11/29/2022, Expires: 01/29/2023 [facility] Work Phone: Comment on above: Expected: 11/29/2022 , Expires: 01/29/2023 Start: 11-27-2022 End: 01-27-2023 ALBUMIN/CREAT RATIO RND UR [facility] Work Phone: Comment on above: Expected: 11/27/2022 , Expires: 01/27/2023 Start: 11-27-2022 End: 01-27-2023 CBC W Auto Differential panel - Blood [facility] Work Phone: Comment on above: Expected: 11/27/2022 , Expires: 01/27/2023 Start: 11-27-2022 End: 01-27-2023 Comprehensive metabolic 2000 panel - Serum or Plasma [facility] Work Phone: Comment on above: Expected: 11/27/2022 , Expires: 01/27/2023 Start: 11-27-2022 End: 01-27-2023 Hemoglobin A1c in Blood [facility] Work Phone: Comment on above: Expected: 11/27/2022 , Expires: 01/27/2023 Start: 11-21-2022 ANNUAL PCP TEAM 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 MYRIAM DISEASE VISIT ANNUAL PCP TEAM CHRONIC DISEASE VISIT [facility] Start: 11-21-2022 BP CONTROLLED (<130/80) BP CONTROLLE D (<130/80) [facility] Start: 10-18-2022 Glaucoma screening Dilated Retinal E xam [facility] Start: 10-18-2022 Hepatitis C antibody , confirmatory test DILATED RETINAL EXAM [facility] Start: 09-17-2022 ADVANCE DIRECTIVE DISCUSSION ADVANCE DIRECTIVE DISCUSSION [facility] Start: 09-17-2022 DEPRESSION ASSESSMENT DEPRESSION ASS ESSMENT [facility] Start: 08-30-2022 End: 10-30-2022 Basic metabolic 2000 panel - Serum or Plasma BASIC METABOLIC PNL Lab Routine Type 2 diabetes mellitus without complication, with long-term current use of insulin (HCC) Expected: 08/30/2022, Expires: 10/30/2022 [facility] Work Phone: Comment on above: Expected: 08/30/2022 , Expires: 10/30/2022 Start: 08-30-2022 End: 10-30-2022 CBC W Ordered Manual Differential panel - Blood PATHOLOGIST INTERPRETATION WITH CBC AND DIFF Lab Routine Monocytosis Expected: 08/30/2022, Expires: 10/30/2022 [facility] Work Phone: Comment on above: Expected: 08/30/2022 , Expires: 10/30/2022 Start: 08-30-2022 End: 10-30-2022 Hemoglobin A1c in Blood HGB A1C Lab Routine Type 2 diabetes mellitus with microalbuminuria, with long-term current use of insulin (HCC) Expected: 08/30/2022, Expires: 10/30/2022 [facility] Work Phone: Comment on above: Expected: 08/30/2022 , Expires: 10/30/2022 Start: 08-29-2022 Hemoglobin A1c/Hemoglobin.total in Blood HBA1C [facility] Start: 08-25-2022 Hemoglobin A1c/Hemoglobin.total in Blood HBA1C [facility] Start: 08-16-2022 Hepatitis B screening URINE AL BUMIN:CREATININE RATIO [facility] Start: 08-16-2022 Hepatitis B surface antibody level LDL CHOLESTEROL [facility] Start: 06-03-2022 End: 08-03-2022 Basic metabolic 2000 panel - Serum or Plasma BASIC METABOLIC PNL Lab Routine Type 2 diabetes mellitus with microalbuminuria, with long-term current use of insulin (HCC) Expected: 06/03/2022, Expires: 08/03/2022 [facility] Work Phone: Comment on above: Expected: 06/03/2022 , Expires: 08/03/2022 Start: 06-03-2022 End: 08-03-2022 CBC W Auto Differential panel - Blood CBC + DIFF Lab Routine Type 2 diabetes mellitus with microalbuminuria, with long-term current use of insulin (HCC) Expected: 06/03/2022, Expires: 08/03/2022 [facility] Work Phone: Comment on above: Expected: 06/03/2022 , Expires: 08/03/2022 Start: 06-03-2022 End: 08-03-2022 Hemoglobin A1c in Blood HGB A1C Lab Routine Type 2 diabetes mellitus with microalbuminuria, with long-term current use of insulin (HCC) Expected: 06/03/2022, Expires: 08/03/2022 [facility] Work Phone: Comment on above: Expected: 06/03/2022 , Expires: 08/03/2022 Start: 06-03-2022 End: 08-03-2022 Hepatitis C virus Ab [Presence] in Serum HEP C AB IA W/CONF SCRN Lab Routine Need for hepatitis C screening test Expected: 06/03/2022, Expires: 08/03/2022 [facility] Work Phone: Comment on above: Expected: 06/03/2022 , Expires: 08/03/2022 Start: 05-18-2022 Influenza vaccination INFLUENZA (#1) [facility] Start: 05-06-2022 3 comp foot exam completed DIABETIC FOOT EXAM [facility] Start: 02-11-2022 End: 04-13-2022 Hemoglobin A1c/Hemoglobin.total in Blood [facility] Comment on above: Expected: 02/11/2022 , Expires: 04/13/2022 Start: 01-12-2022 End: 03-14-2022 Basic metabolic 2000 panel - Serum or Plasma BASIC METABOLIC PNL Lab Routine Type 2 diabetes mellitus without complication, with long-term current use of insulin (HCC) Expected: 01/12/2022, Expires: 03/14/2022 [facility] Work Phone: Comment on above: Expected: 01/12/2022 , Expires: 03/14/2022 Start: 09-17-2021 ADVANCE DIRECTIVE DISCUSSION ADVANCE DIRECTIVE DISCUSSION [facility] Start: 09-17-2021 DEPRESSION ASSESSMENT DEPRESSION ASS ESSMENT [facility] Start: 07-16-2019 Adult depression screening assessment DEPRESSION SCREENING [facility] Start: 2004 Hepatitis B Vaccine (1 of 3 - Risk 3-dose series) Hepatitis B Vaccine (1 of 3 - Risk 3-dose series) [facility] Start: 2004 RSV Vaccine (1 - 1-d ose 60+ series) RSV Vaccine (1 - 1-dose 60+ series) [facility] Start: 1994 SHINGRIX VACCINE (1 of 2) SO GRIX VACCINE (1 of 2) [facility] Start: 1963 Urine microalbumin profile [facility] Start: 1962 BP CONTROLLED (<130/80) BP CONTROLLE D (<130/80) [facility] Start: 1962 HEPATITIS C SCREENING HEPATITIS C SC REENING [facility] Start: 1950 PNEUMOCOCCAL: 65+ (1 - PCV) PNEUMOCOCCAL: 65+ (1 - PCV) [facility] Start: 1949 COVID-19 VACCINE (#1) COVID-19 VACCI NE (#1) [facility] Start: 1949 COVID-19 VACCINE (1) COVID-19 VACCIN E (1) [facility] Start: 1944 COVID-19 VACCINE (#1) COVID-19 VACCI NE (#1) [facility] CBC W Auto Different ial panel - Blood CBC + DIFF Lab Routine Near syncope 05/18/2023 4:29 PM EDT [facility] Work Phone: COVID & INFLUENZA A/ B & RSV NAAT, ROUTINE COVID & INFLUENZA A/B & RSV NAAT, ROUTINE Microbiology Routine Suspected COVID-19 virus infection 06/09/2023 11:25 AM EDT [facility] Work Phone: End: 05-18-2024 ECG COMPLETE ECG COMPLETE ECG Routine Near syncope Fall, initial encounter 1 Occurrences starting 05/18/2023 until 05/18/2024 [facility] Work Phone: Comment on above: 1 Occurrences starti ng 05/18/2023 until 05/18/2024 ECG COMPLETE ECG COMPLETE ECG Routine SOB (shortness of breath) Bilateral leg edema Weight increase 02/04/2024 11:01 AM EDT [facility] End: 02-27-2025 Echocardiography ECHO Cardiology Routine Bilateral leg edema SOB (shortness of breath) Weight gain 1 Occurrences starting 02/28/2024 until 02/27/2025 [facility] Comment on above: 1 Occurrences starti ng 02/28/2024 until 02/27/2025 Lipid 1996 panel - S leatha or Plasma LIPID PANEL BASIC Lab Routine Type 2 diabetes mellitus with microalbuminuria, with long-term current use of insulin ([facility]) 11/27/2022 9:20 AM EDT [facility] Work Phone: ROUTINE FLU A/B + RSV ROUTINE FL U A/B + RSV Lab Routine Suspected COVID-19 virus infection 06/09/2023 11:25 AM EDT [facility] Work Phone: SARS-CoV-2 (COVID-19 ) RNA [Presence] in Respiratory specimen by DARRIAN with probe detection COVID NAAT, ROUTINE Microbiology Routine Acute upper respiratory infection 05/18/2023 4:19 PM EDT [facility] Work Phone: SARS-CoV-2 (COVID-19 ) RNA [Presence] in Respiratory specimen by DARRIAN with probe detection COVID NAAT, UPPER RESPIRATORY, ROUTINE Microbiology Routine Suspected COVID-19 virus infection 06/09/2023 11:25 AM EDT [facility] Work Phone: End: 02-27-2025 US Vein - bilateral US VENOUS INCOMPETENCY [facility] Vascular Lab Routine Varicose veins of both lower extremities with inflammation 1 Occurrences starting 02/28/2024 until 02/27/2025 [facility] Comment on above: 1 Occurrences starti ng 02/28/2024 until 02/27/2025 End: 03-05-2025 XR Chest PA and Lateral XR CHEST 2V FRONTAL/LAT Radiology Routine SOB (shortness of breath) Bilateral leg edema Weight increase 1 Occurrences starting 02/04/2024 until 03/05/2025 [facility] Comment on above: 1 Occurrences starti ng 02/04/2024 until 03/05/2025 XR Chest PA and Lateral XR CHEST 2V FRONTAL/LAT Radiology Routine SOB (shortness of breath) Bilateral leg edema Weight increase 02/04/2024 12:26 PM EDT [facility] End: 08-21-2024 XR HIP GENERAL 3V PELV/AP/LAT RIGHT XR HIP GENERAL 3V PELV/AP/LAT RIGHT Radiology Routine Acute hip pain, right 1 Occurrences starting 07/23/2023 until 08/21/2024 [facility] Work Phone: Comment on above: 1 Occurrences starti ng 07/23/2023 until 08/21/2024 XR HIP GENERAL 3V PELV/AP/LAT RIGHT XR HIP GENERAL 3V PELV/AP/LAT RIGHT Radiology Routine Acute hip pain, right 07/23/2023 3:10 PM EST [facility] Work Phone: [facility] Immunizations Immunization Date Immunization Notes Care Provider Rashida light 06-20-2024 influenza, high dose seasonal, preservative-free Zoila Dickerhoof SWEATBAND DECORATING 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.PECAN SHELLER Work Phone: [facility] 06-06-2023 influenza (HD-IIV4) vaccine, age 65+ yr, high dose, quadrivalent, PF (FLUZONE HIGH-DOSE) Jeff Virgen MD Work Phone: [facility] 06-06-2023 influenza virus vacc ine, unspecified formulation FERNY Travis PA-C Work Phone: [facility] 05-31-2022 influenza, high-dose , quadrivalent vaccine (FLUZONE HIGH DOSE QUADRIVALENT) Jeff Virgen MD Work Phone: [facility] 05-31-2022 influenza virus vacc ine, unspecified formulation Jeff Virgen MD Work Phone: [facility] 06-17-2021 influenza, injectabl e, quadrivalent, preservative free Zoila Dickerhoof 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.PECAN SHELLER Work Phone: [facility] 06-17-2021 influenza, seasonal, injectable Jeff Virgen MD Work Phone: [facility] 06-17-2021 influenza, seasonal, injectable, preservative free Jeff Virgen MD Work Phone: [facility] 07-26-2020 influenza, high-dose , quadrivalent vaccine (FLUZONE HIGH DOSE QUADRIVALENT) Jeff Virgen MD Work Phone: [facility] 08-21-2019 influenza, injectabl e, quadrivalent, preservative free Zoila Dickerhoof 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.PECAN SHELLER Work Phone: [facility] 08-21-2019 influenza, seasonal, injectable Jeff Virgen MD Work Phone: [facility] 08-21-2019 influenza, seasonal, injectable, preservative free Jeff Virgen MD Work Phone: [facility] Work Phone: 07-04-2019 influenza, high dose seasonal, preservative-free Jeff Virgen MD Work Phone: [facility] 07-16-2018 influenza, high dose seasonal, preservative-free Jeff Virgen MD Work Phone: [facility] 08-27-2017 influenza, high dose seasonal, preservative-free Jeff Virgen MD Work Phone: [facility] 08-17-2016 pneumococcal polysaccharide vaccine, 23 valent Jeff Virgen MD Work Phone: [facility] 06-14-2016 influenza, high dose seasonal, preservative-free Jeff Virgen MD Work Phone: [facility] Work Phone: 07-14-2015 influenza, high dose seasonal, preservative-free Jeff Virgen MD Work Phone: [facility] Work Phone: 06-16-2015 pneumococcal conjuga te vaccine, 13 valent Jeff Virgen MD Work Phone: [facility] Work Phone: 06-25-2014 influenza, seasonal, injectable Jeff Virgen MD Work Phone: [facility] 07-12-2013 influenza virus vacc ine, unspecified formulation Jeff Virgen MD Work Phone: [facility] 06-15-2012 influenza virus vacc ine, unspecified formulation Jeff Virgen MD Work Phone: [facility] Work Phone: 06-07-2011 influenza virus vacc ine, unspecified formulation Jeff Virgen MD Work Phone: [facility] Work Phone: 07-02-2010 influenza virus vacc ine, unspecified formulation Jeff Virgen MD Work Phone: [facility] Work Phone: 07-14-2009 pneumococcal polysaccharide vaccine, 23 valent Jeff Virgen MD Work Phone: [facility] 06-09-2009 influenza virus vacc ine, unspecified formulation Jeff Virgen MD Work Phone: [facility] 07-22-2008 influenza virus vacc ine, unspecified formulation Jeff Virgen MD Work Phone: [facility] 07-27-2007 influenza virus vacc ine, unspecified formulation Jeff Virgen MD Work Phone: [facility] Work Phone: 07-23-2006 influenza virus vacc ine, unspecified formulation Jeff Virgen MD Work Phone: [facility] Work Phone: 07-13-2005 influenza virus vacc ine, unspecified formulation Jeff Virgen MD Work Phone: [facility] Work Phone: Payers Date Payer Category Payer Unknown PRIMETIME PRIMET WES HMO POS [id number] 2014-Present [phone] [address] [place] [address] O [id number] 2014 Unknown [id number] 2014 Unknown [id number] Social History Date Type Detail Facility Start: 08-17-2016 End: 06-20-2024 Tobacco smoking status NHIS Ex-smoker [facility] Start: 09-17-1970 End: 09-17-1980 History of tobacco use Current smoker [facility] Start: 09-17-1970 End: 09-17-1980 History of tobacco use Cigarette Smoker [facility] Start: 11-21-2021 End: 06-23-2024 Alcohol intake Current non-drinker of alcohol (finding) [facility] Start: 1945 Sex Assigned At Not on file [facility] Start: 12-25-2020 End: 05-31-2022 Exposure to SARS-CoV-2 (event) Not sure [facility] Start: 03-29-2022 End: 04-08-2022 Exposure to SARS-CoV-2 (event) Unable to assess [facility] Work Phone: Start: 08-17-2016 End: 01-18-2023 Cigarettes smoked current (pack per day) - Reported 2 [facility] Start: 08-17-2016 End: 06-20-2024 Tobacco use and exposure Smokeless tobacco non-user [facility] Start: 01-19-2023 History SDOH Alcohol Frequency 1 [facility] Start: 01-19-2023 History SDOH Alcohol Std Drinks 0 [facility] Start: 01-19-2023 History SDOH Social Connections Phone 5 [facility] Start: 01-19-2023 History SDOH Social Connections Get Together 3 [facility] Start: 01-19-2023 History SDOH Social Connections Membership 2 [facility] Start: 01-19-2023 History SDOH Social Connections Living 4 [facility] Start: 1945 Sex Assigned At Male C [facility] Start: 01-18-2023 End: 06-19-2024 Social connection and isolation panel [facility] Do you belong to any clubs or organizations such as muslim groups, unions, fraternal or athletic groups, or school groups? No [facility] Are you now , , , , never or living with a partner? [facility] How often to you hav e a drink containing alcohol? Never [facility] How many standard dr inks containing alcohol do you have on a typical day? Patient does not drink [facility] How hard is it for y ou to pay for the very basics like food, housing, medical care, and heating Not very hard [facility] Do you feel stress - tense, restless, nervous, or anxious, or unable to sleep at night because your mind is troubled all the time - these days [OSQ] Not at all [facility] (I/We) worried wheth er (my/our) food would run out before (I/we) got money to buy more. Never true [facility] Start: 01-18-2023 Gender identity Identifies as male gender (finding) [facility] Medical Equipment Procedure Code Equipment Code Equipment Origin al Text Equipment Identifier Dates 1 Each twice daily. Accucheck compact test strips, dx-NIDDM [id number] Start: 08-20-2013 Comment on above: 1 Each twice daily. Accucheck compact test strips, dx-NIDDM [id number], [id number], [id number] Start: 08-20-2013 End: 06-20-2024 Comment on above: 1 Each once daily. D X: E11.9 Insulin: Yes Test blood sugar(s) 1 times daily. Dx: 250.00. Insulin: Yes Clinical Notes 01-24-2021 to 07-09-2024 Telephone Encounter - Anthony Henley LPN - 07/09/2024 10:37 AM EDTTelephone Encounter - Anthony Henley LPN - 07/09/2024 10:37 AM EDTTelephone Encounter - Osvaldo Regalado RN - 06/24/2024 4:23 PM EDT Note Date & Type Note Facility 07-09-2024 Telephone encounter Note Prescription Refill Information The patient has been identified by name and date of : Yes Caregiver verified no other encounters exist for this prescription request: Yes Caregiver confirmed with patient/requestor that no other refills are due, in the near future, with this provider at this time: Yes The last office visit in the department: 06/20/24 Does the patient have a future office visit with this provider/department: Yes Requested Prescriptions Pending Prescriptions Disp Refills carvedilol (COREG) 25 mg tablet 180 tablet 1 Sig: Take 1 tablet by mouth two times a day. Anthony Henley LPN July 09, 2024 10:38 AM [facility] 07-09-2024 Miscellaneous Notes Prescription Refill Information The patient has been identified by name and date of : Yes Caregiver verified no other encounters exist for this prescription request: Yes Caregiver confirmed with patient/requestor that no other refills are due, in the near future, with this provider at this time: Yes The last office visit in the department: 06/20/24 Does the patient have a future office visit with this provider/department: Yes Requested Prescriptions Pending Prescriptions Disp Refills carvedilol (COREG) 25 mg tablet 180 tablet 1 Sig: Take 1 tablet by mouth two times a day. Anthony Henley LPN July 09, 2024 10:38 AM documented in this encounter [facility] 06-24-2024 Telephone encounter Note Daughter returned call and given provider's message below with verbalized understanding. Daughter agreeable. Scheduled lab appt in 1 mth. [facility] 06-24-2024 Miscellaneous Notes Daughter returned call and given provider's message below with verbalized understanding. Daughter agreeable. Scheduled lab appt in 1 mth. Tried to reach pt, VM full, unable to leave message or call back number. [employer] message sent to pt, asking them to call back for results. Miley Pemberton MA Attempted to reach pt by phone without success. Mailbox is full. Try later. Kennedi Frey LPN ----- Message from Julianna Hood sent at 06/23/2024 1:51 PM EDT ----- Your vitamin D level is very low. Please consider [id number] vitamin D3-2000 units daily. Your white blood count is improving but now developing some mild anemia. Please recheck CBC in a month again. documented in this encounter [facility] 06-24-2024 Telephone encounter Note Tried to reach pt, VM full, unable to leave message or call back number. [employer] message sent to pt, asking them to call back for results. Miley Pemberton MA [facility] 06-23-2024 Instructions Sunny Duval APRN.CAESAR - 06/23/2024 3:20 PM EDT Let me know if you would like to schedule a sleep study. We can have it done at [place] or [place]. documented in this encounter [facility] 06-23-2024 History of Presen t illness Narrative Images from the original note were not included. [facility] New Patient Evaluation PATIENT NAME: Faisal Alarcon DATE OF SERVICE: June 22, 2024 CONSULTING PROVIDER: Osvaldo Travis [address] [facility] [address] REASON FOR CONSULT: Osvaldo Travis sends the patient for an opinion about CJ. My findings and recommendations will be transmitted electronically via shared medical record to the consulting provider. HPI: Faisal Alarcon is a 79 year old male. Accompanied by his daughter Loan. Sleep-related history: CJ, unclear if he has had a sleep study, never treated if he ever was officially diagnosed. He knew he didn't want CPAP. Per PCP note 06/20/24 he is tired. SLEEP-WAKE SCHEDULE Bedtime: 9 PM. He does not have a hard time falling asleep. Wake time: 9 AM After falling asleep: he wakes up 2 time(s) per night, because of the need to urinate. On weekends, he maintains the same sleep schedule. Average total sleep time (in a 24 hour period): 8 hours. SLEEP-RELATED DETAILS Preferred sleep position: side Breathing disturbances and other behaviors during sleep: snoring and stopping breathing during sleep and leg movements GERD or aspiration: No Waking up with heart pounding or racing: No Anxiety or rumination: No He does not report having an urge to move the legs in the evening (when resting) that is accompanied or caused by uncomfortable and/or unpleasant sensations in the legs. He has been told that he has leg kicking during sleep. He denies any history of parasomnias. Daytime sleepiness is not a problem. He does report sleep paralysis or sleep-related hallucinations WAKE-RELATED DETAILS He does not work. He does not have difficulty with memory or concentration. He denies falling asleep or dozing off when driving. He does take naps. Frequency: daily, Duration: 20 min to 2 hrs. Naps are refreshing. He does not drink caffeinated beverages. He has lost 10 pounds since 3 mos. Patient Questionnaires Sleep Scores 06/19/2024 PHQ-9 Score 5 06/19/2024 PROMIS Global Health - (T-Scores - the mean of general population = 50. Five points is a clinically meaningful difference.) Physical T-Score 26.7 26.7 Mental T-Score 45.8 45.8 Multiple values from one day are sorted in reverse-chronological order PAST TREATMENTS: None PRIOR SLEEP STUDIES: ? 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 Schizophrenia, Chronic Condition (Hcc) Obesity, Class II, Bmi 35-39.9 Paroxysmal Atrial Fibrillation (Hcc) Chronic Anticoagulation History of Colonic Polyps Hyperlipidemia Nonobstructive Atherosclerosis of Coronary Artery Restrictive Lung Disease Right Bundle Branch Block (Rbbb) With Left Anterior Fascicular Block (Lafb) History of Bladder Cancer Benign Prostatic Hyperplasia Without Lower Urinary Tract Symptoms 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 Blood-Glucose Meter,Continuous (FREESTYLE JAMES 3 READER) [facility] Use to check blood sugar at least four (4) times daily. Uses insulin Blood-Glucose Sensor (FREESTYLE JAMES 3 PLUS SENSOR) sayra Apply new sensor every fifteen (15) days to upper arm. colestipol (COLESTID) 1 gram tablet Take 1 tablet by mouth once daily. losartan-hydroCHLOROthiazide (HYZAAR) 100-12.5 mg per tablet Take 1 tablet by mouth once daily. carvedilol (COREG) 25 mg tablet Take 1 tablet by mouth two times a day. albuterol HFA (VENTOLIN HFA) 90 mcg/actuation inhaler Inhale 2 Puffs as instructed every 4 hours as needed. famotidine (PEPCID) 20 mg tablet Take 1 tablet by mouth two times a day. insulin lispro (HUMALOG KWIKPEN INSULIN) 100 unit/mL Inject 20 Units subcutaneously three times a day before meals. Getting through [facility] [facility] dilTIAZem CD (CARDIZEM CD, CARTIA XT) 120 mg 24 hr capsule Take 1 capsule by mouth once daily. metFORMIN ER (GLUCOPHAGE XR) 500 mg 24 hr tablet Take 2 tablets by mouth two times a day before meals. simvastatin (ZOCOR) 40 mg tablet Take 1 tablet by mouth daily at bedtime. insulin glargine (BASAGLAR KWIKPEN U-100 INSULIN) 100 unit/mL (3 mL) Inject 90 Units subcutaneously daily at bedtime. finasteride (PROSCAR) 5 mg [...] twice daily. Accucheck compact test strips, dx-NIDDM flecainide (TAMBOCOR) 150 mg tablet Take 1 tablet by mouth every 12 hours. Prescribed by outside fundraising specialist Review of Systems Cardiovascular: Negative for palpitations. Gastrointestinal: Negative for heartburn (controlled with med). Genitourinary: Positive for nocturia. Musculoskeletal: Positive for arthralgias. Neurological: Negative for headaches and memory loss. SOCIAL HISTORY: Social History Tobacco Use Smoking status: Former Current packs/day: 0.00 Average packs/day: 2.0 packs/day for 10.0 years (20.0 ttl pk-yrs) Types: Cigarettes Start date: 09/17/1970 Quit date: 09/17/1980 Years since quittin.7 Smokeless tobacco: Never Vaping Use Vaping status: Never Used Substance Use Topics Alcohol use: No Drug use: No FAMILY HISTORY: FAMILY HISTORY Problem Relation Age of Onset Heart Father Hypertension Father Cancer Mother Colon Cancer Sister Cancer Sister Colon Cancer Brother There is no family history of sleep disorders. PHYSICAL EXAMINATION: Vital Signs: BP 155/77 Pulse 82 Resp 18 Wt 136 kg (299 lb 13.2 oz) SpO2 95% BMI 39.56 kg/m PHYSICAL EXAM: General appearance: pleasant, NAD Mental status: alert and oriented, able to provide own history Constitutional: obese Edentulous ENT : Posterior airspace: Henley tongue position 4, High arched palate present. Tongue scalloping/ridging present. IMPRESSION/PLAN: R06.83 Snoring (primary encounter diagnosis) R06.81 Witnessed episode of apnea R25.8 Nocturnal leg movements G47.00 Frequent nocturnal awakening R35.1 Nocturia Faisal Alarcon is a delightful 79 year old male with snoring, witnessed apneas, nocturnal leg movements, frequent nocturnal awakenings, nocturia. PMH of HTN, atrial fibrillation, HLD, CAD, DM2, bladder cancer, schizophrenia, obesity. We discussed CJ, risks of untreated CJ including but not limited to NH/HF/CVA, testing for CJ, treatment with PAP therapy. Not a candidate for OAT since he is edentulous. Briefly discussed hypoglossal nerve stimulation ([employer]). We discussed different mask options for PAP. He will consider a PSG, could schedule at [place] or [place], daughter Loan uses [employer] for him, she will let me know. Sunny Duval APRN.PECAN SHELLER documented in this encounter [facility] 06-23-2024 Note HNO ID: [id number] Author: SUNNY DUVAL APRN.CAESAR Service: ? Author Type: Nurse Practitioner Type: Progress Notes Filed: 06/23/2024 16:46 Note Text: [facility] New Patient Evaluation PATIENT NAME: Faisal Alarcon DATE OF SERVICE: June 22, 2024 CONSULTING PROVIDER: Osvaldo Travis [address] [facility] [address] REASON FOR CONSULT: Osvaldo Travis sends the patient for an opinion about CJ. My findings and recommendations will be transmitted electronically via shared medical record to the consulting provider. HPI: Faisal Alarcon is a 79 year old male. Accompanied by his daughter Loan. Sleep-related history: CJ, unclear if he has had a sleep study, never treated if he ever was officially diagnosed. He knew he didn't want CPAP. Per PCP note 06/20/24 he is tired. SLEEP-WAKE SCHEDULE Bedtime: 9 PM. He does not have a hard time falling asleep. Wake time: 9 AM After falling asleep: he wakes up 2 time(s) per night, because of the need to urinate. On weekends, he maintains the same sleep schedule. Average total sleep time (in a 24 hour period): 8 hours. SLEEP-RELATED DETAILS Preferred sleep position: side Breathing disturbances and other behaviors during sleep: snoring and stopping breathing during sleep and leg movements GERD or aspiration: No Waking up with heart pounding or racing: No Anxiety or rumination: No He does not report having an urge to move the legs in the evening (when resting) that is accompanied or caused by uncomfortable and/or unpleasant sensations in the legs. He has been told that he has leg kicking during sleep. He denies any history of parasomnias. Daytime sleepiness is not a problem. He does report sleep paralysis or sleep-related hallucinations WAKE-RELATED DETAILS He does not work. He does not have difficulty with memory or concentration. He denies falling asleep or dozing off when driving. He does take naps. Frequency: daily, Duration: 20 min to 2 hrs. Naps are refreshing. He does not drink caffeinated beverages. He has lost 10 pounds since 3 mos. Patient Questionnaires Sleep Scores 06/19/2024 PHQ-9 Score 5 06/19/2024 PROMIS Global Health - (T-Scores - the mean of general population = 50. Five points is a clinically meaningful difference.) Physical T-Score 26.7 26.7 Mental T-Score 45.8 45.8 Multiple values from one day are sorted in reverse-chronological order PAST TREATMENTS: None PRIOR SLEEP STUDIES: ? 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 Schizophrenia, Chronic Condition (Hcc) Obesity, Class II, Bmi 35-39.9 Paroxysmal Atrial Fibrillation (Hcc) Chronic Anticoagulation History of Colonic Polyps Hyperlipidemia Nonobstructive Atherosclerosis of Coronary Artery Restrictive Lung Disease Right Bundle Branch Block (Rbbb) With Left Anterior Fascicular Block (Lafb) History of Bladder Cancer Benign Prostatic Hyperplasia Without Lower Urinary Tract Symptoms 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 Blood-Glucose Meter,Continuous (FREESTYLE JAMES 3 READER) [facility] Use to check blood sugar at least four (4) times daily. Uses insulin Blood-Glucose Sensor (FREESTYLE JAMES 3 PLUS SENSOR) sayra Apply new sensor every fifteen (15) days to upper arm. colestipol (COLESTID) 1 gram tablet Take 1 tablet by mouth once daily. losartan-hydroCHLOROthiazide (HYZAAR) 100-12.5 mg per tablet Take 1 tablet by mouth once daily. carvedilol (COREG) 25 mg tablet Take 1 tablet by mouth two times a day. albuterol HFA (VENTOLIN HFA) 90 mcg/actuation inhaler Inhale 2 Puf (more content not included)... [facility] 06-23-2024 Telephone encounter Note Attempted to reach pt by phone without success. Mailbox is full. Try later. Kennedi Frey LPN [facility] 06-23-2024 Telephone encounter Note ----- Message from Julianna Hood sent at 06/23/2024 1:51 PM EDT ----- Your vitamin D level is very low. Please consider [id number] vitamin D3-2000 units daily. Your white blood count is improving but now developing some mild anemia. Please recheck CBC in a month again. [facility] 06-20-2024 Note HNO ID: [id number] Author: JEFF VIRGEN MD Service: ? Author Type: Physician Type: Progress Notes Filed: 06/20/2024 17:18 Note Text: Patient presents with: Diabetes HPI: Patient presents today for office visit for follow up on sugars. DM: Currently on Humalog 26 units with every meal Basaglar 90 units qhs Metformin 500 mg (2 tabs) BI A1c 7.4 Checking his sugars at least 4 x a day Admits to not watching his diet Denies any unexpected weight loss No hypoglycemic spells No vision concerns. Saw eye doctor today. No wounds on his feet. Denies any numbness or pain in feet. Had transurethral resection of a bladder tumor by Dr Daley. He is having issues with bladder control. They are waiting to hear back yet on next steps. Heart is doing doing well. Seeing cardiology. No new shortness of breath. No new chest pain No new palpitations. Work up in er recently for short lived discomfort was negative. Family had him stop the spironolactone. They are waiting to hear back from Dr Ponce. Discussed daily weights and reasons for recheck. No worsening swelling. Wants to have vit d tested. Is very tired. Does not treat his sleep apnea. Sees sleep medicine on Sunday. Free style james script needs sent through [employer] He is wanting us to send his scooter request to [employer]. They had requested a letter in the past for one but did not perform a face to face eval. Latest Ref Rng 06/11/2024 Protein, Total 6.3 - 8.0 g/dL 7.4 Albumin 3.9 - 4.9 g/dL 3.9 Calcium 8.5 - 10.2 mg/dL 9.8 Bilirubin, Total 0.2 - 1.3 mg/dL <0.2 (L) Alkaline Phosphatase 38 - 113 U/L 81 AST 14 - 40 U/L 26 ALT 10 - 54 U/L 23 Glucose 74 - 99 mg/dL 169 (H) BUN 9 - 24 mg/dL 28 (H) Creatinine 0.73 - 1.22 mg/dL 1.19 Sodium 136 - 144 mmol/L 133 (L) Potassium 3.7 - 5.1 mmol/L 4.8 Chloride 98 - 107 mmol/L 98 CO2 22 - 30 mmol/L 20 (L) Anion Gap 8 - 15 mmol/L 15 eGFR >=60 mL/min/1.73m? 62 Hemoglobin A1C 4.3 - 5.6 % 7.4 (H) Estimated Average Glucose mg/dL 166 MEDICATIONS: Current Outpatient Medications Medication Sig ELIQUIS 5 mg tab(s) Take 1 tablet by mouth two times a day. colestipol (COLESTID) 1 gram tablet Take 1 [...] as instructed every 4 hours as needed. famotidine (PEPCID) 20 mg tablet Take 1 tablet by mouth two times a day. insulin lispro (HUMALOG KWIKPEN INSULIN) 100 unit/mL Inject 20 Units subcutaneously three times a day before meals. Getting through [facility] dilTIAZem CD (CARDIZEM CD, CARTIA XT) 120 mg 24 hr capsule Take 1 capsule by mouth once daily. metFORMIN ER (GLUCOPHAGE XR) 500 mg 24 hr tablet Take 2 tablets by mouth two times a day before meals. simvastatin (ZOCOR) 40 mg tablet Take 1 tablet by mouth daily at bedtime. insulin glargine (BASAGLAR KWIKPEN U-100 INSULIN) 100 unit/mL (3 mL) Inject 90 Units subcutaneously daily at bedtime. finasteride (PROSCAR) 5 mg [...] twice daily. Accucheck compact test strips, dx-NIDDM flecainide (TAMBOCOR) 150 mg tablet Take 1 tablet by mouth every 12 hours. Prescribed by outside fundraising specialist No current facility-administered medications for this visit. [...] UMBILICAL HERNIA < 5 YRS REDUCIBLE Hernia r (more content not included)... [facility] 06-20-2024 History of Presen t illness Narrative Patient presents with: Diabetes HPI: Patient presents today for office visit for follow up on sugars. DM: Currently on Humalog 26 units with every meal Basaglar 90 units qhs Metformin 500 mg (2 tabs) BI A1c 7.4 Checking his sugars at least 4 x a day Admits to not watching his diet Denies any unexpected weight loss No hypoglycemic spells No vision concerns. Saw eye doctor today. No wounds on his feet. Denies any numbness or pain in feet. Had transurethral resection of a bladder tumor by Dr Daley. He is having issues with bladder control. They are waiting to hear back yet on next steps. Heart is doing doing well. Seeing cardiology. No new shortness of breath. No new chest pain No new palpitations. Work up in er recently for short lived discomfort was negative. Family had him stop the spironolactone. They are waiting to hear back from Dr Ponce. Discussed daily weights and reasons for recheck. No worsening swelling. Wants to have vit d tested. Is very tired. Does not treat his sleep apnea. Sees sleep medicine on Sunday. Free style james script needs [facility] He is wanting us to send his scooter request to [employer]. They had requested a letter in the past for one but did not perform a face to face eval. Latest Ref Rng 06/11/2024 Protein, Total 6.3 - 8.0 g/dL 7.4 Albumin 3.9 - 4.9 g/dL 3.9 Calcium 8.5 - 10.2 mg/dL 9.8 Bilirubin, Total 0.2 - 1.3 mg/dL <0.2 (L) Alkaline Phosphatase 38 - 113 U/L 81 AST 14 - 40 U/L 26 ALT 10 - 54 U/L 23 Glucose 74 - 99 mg/dL 169 (H) BUN 9 - 24 mg/dL 28 (H) Creatinine 0.73 - 1.22 mg/dL 1.19 Sodium 136 - 144 mmol/L 133 (L) Potassium 3.7 - 5.1 mmol/L 4.8 Chloride 98 - 107 mmol/L 98 CO2 22 - 30 mmol/L 20 (L) Anion Gap 8 - 15 mmol/L 15 eGFR >=60 mL/min/1.73m 62 Hemoglobin A1C 4.3 - 5.6 % 7.4 (H) Estimated Average Glucose mg/dL 166 MEDICATIONS: Current Outpatient Medications Medication Sig ELIQUIS 5 mg tab(s) Take 1 tablet by mouth two times a day. colestipol (COLESTID) 1 gram tablet Take 1 [...] as instructed every 4 hours as needed. famotidine (PEPCID) 20 mg tablet Take 1 tablet by mouth two times a day. insulin lispro (HUMALOG KWIKPEN INSULIN) 100 unit/mL Inject 20 Units subcutaneously three times a day before meals. Getting through [facility] dilTIAZem CD (CARDIZEM CD, CARTIA XT) 120 mg 24 hr capsule Take 1 capsule by mouth once daily. metFORMIN ER (GLUCOPHAGE XR) 500 mg 24 hr tablet Take 2 tablets by mouth two times a day before meals. simvastatin (ZOCOR) 40 mg tablet Take 1 tablet by mouth daily at bedtime. insulin glargine (BASAGLAR KWIKPEN U-100 INSULIN) 100 unit/mL (3 mL) Inject 90 Units subcutaneously daily at bedtime. finasteride (PROSCAR) 5 mg [...] twice daily. Accucheck compact test strips, dx-NIDDM flecainide (TAMBOCOR) 150 mg tablet Take 1 tablet by mouth every 12 hours. Prescribed by outside fundraising specialist No current facility-administered medications for this visit. [...] Social History Tobacco Use Smoking status: Former Current packs/day: 0.00 Average packs/day: 2.0 packs/day for 10.0 years (20.0 ttl pk-yrs) Types: Cigarettes Start date: 09/17/1970 Quit date: 09/17/1980 Years since quittin.7 Smokeless tobacco: Never Vaping Use Vaping status: Never Used Substance Use Topics Alcohol use: No Drug use: No Reviewed current medications, allergies, past medical history, surgical history, family history and social history today. REVIEW OF SYSTEMS Just saw eye doc and had some retinopathy. All other reviewed and negative other than HPI. HEALTH MAINTENANCE: Reviewed health maintenance issues today and recommended the following in detail. BP Controlled (<130/80) Never done DTaP,Tdap,Td Vaccine(1 - Tdap) Never done Shingrix Vaccine(1 of 2) Never done Influenza Vaccine(1) due on 05/18/2024 Covid-19 Vaccine( season) Never done Diabetic Foot Exam due on 06/06/2024 VITALS: BP 132/56 Pulse 80 Ht 185.4 cm (6' 1 ) Wt (!) 136.7 kg (301 lb 6.4 oz) SpO2 94% BMI 39.76 kg/m Last 4 Encounter Wt Readings: Date: Wt: 04/12/2024 140.2 kg (309 lb) 04/09/2024 140.6 kg (309 lb 15.5 oz) 02/28/2024 139.9 kg (308 lb 6.4 oz) 02/04/2024 134.7 kg (297 lb) PHYSICAL EXAMINATION: General appearance: Well appearing, alert, in no acute distress, well-hydrated, well nourished. Skin: Skin color, texture, turgor normal, no suspicious rashes or lesions Lungs: Lungs clear to auscultation. No wheezing, rhonchi, rales Heart: RRR without murmur, gallop, or rubs. No ectopy Abdomen: Normal abdominal exam, Abdomen soft, non-tender. Bowel sounds normal. No masses, organomegaly Extremities: No deformities,edema, skin discoloration, clubbing or cyanosis. Good capillary refill. Musculoskeletal: No joint swelling, deformity, or tenderness Feet:Shoes and socks removed, No deformities, ulcers, calluses, normal distal pulses, and sensitive to 10 gm monofilament ASSESSMENT/PLAN: 1. Essential hypertension - ICD9: 401.9, ICD10: I10 (primary diagnosis) - Controlled - Continue current medications 2. Paroxysmal atrial fibrillation (HCC) - ICD9: 427.31, ICD10: I48.0 - Continue current medications. Notify us if any difficulties are noted. - ELIQUIS 5 MG TABLET - COMPLETE BLOOD COUNT AND DIFFERENTIAL 3. Right bundle branch 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 (LAFB) - ICD9: 426.52, ICD10: I45.2 - stable. 4. 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 Other psoriasis - ICD9: 696.1, ICD10: L40.8 - stable. 6. Schizophrenia, chronic condition (HCC) - ICD9: 295.62, ICD10: F20.9 - stable. 7. Obesity, Class II, BMI 35-39.9 - ICD9: 278.00, ICD10: E66.812 - VITAMIN D 25 HYDROXY 8. Chronic anticoagulation - ICD9: V58.61, ICD10: Z79.01 - pau. 9. History of bladder cancer - ICD9: V10.51, ICD10: Z85.51 - per urology 10. Benign prostatic hyperplasia without lower urinary tract symptoms - ICD9: 600.00, ICD10: N40.0 - as above. 11. Fatigue, unspecified type - ICD9: 780.79, ICD10: R53.83 - check labs. - THYROID STIMULATING HORMONE 12. Mixed hyperlipidemia - ICD9: 272.2, ICD10: E78.2 - continue meds. - CREATINE KINASE/CK 13. Disorder of bone - ICD9: 733.90, ICD10: M89.9 - VITAMIN D 25 HYDROXY 14. 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, macular edema presence unspecified, unspecified laterality (HCC) - ICD9: 250.50, 362.05, ICD10: E11.3399 - per optho. 15. Need for vaccination - ICD9: V05.9, ICD10: Z23 - INFLUENZA VACCINE, PRSV FREE, AGE 65+ YR, HIGH DOSE, TRIVALENT (FLUZONE HIGH-DOSE) 16. Lymphedema of left leg - ICD9: 457.1, ICD10: I89. - DME SUPPLY OR ACCESSORY, NOS 17. Psoriatic arthritis (HCC) - ICD9: 696.0, ICD10: L40.50 - DME SUPPLY OR ACCESSORY, NOS Jeff Virgen MD documented in this encounter [facility] 06-20-2024 Telephone encounter Note Patient phones requesting refills as follows: Requested Prescriptions Pending Prescriptions Disp Refills ELIQUIS 5 mg tab(s) 60 tablet 1 Sig: Take 1 tablet by mouth two times a day. Please review and advise. Renetta Gant MA [facility] 06-20-2024 Miscellaneous Notes Patient phones requesting refills as follows: Requested Prescriptions Pending Prescriptions Disp Refills ELIQUIS 5 mg tab(s) 60 tablet 1 Sig: Take 1 tablet by mouth two times a day. Please review and advise. Renetta Gant MA documented in this encounter [facility] 06-20-2024 Telephone encounter Note Patient has visit today. Clinical staff can follow up with daughter at visit. [facility] 06-20-2024 Miscellaneous Notes Patient has visit today. Clinical staff can follow up with daughter at visit. Patient's daughter Loan Brooks calling and requesting to speak specifically with PCP nurse, Anthony. This is in regard to patient's scooter and pt's insurance. Loan [phone]. Thank you. documented in this encounter [facility] 06-18-2024 Telephone encounter Note Patient's daughter Loan Brooks calling and requesting to speak specifically with PCP nurse, Anthony. This is in regard to patient's scooter and pt's insurance. Loan [phone]. Thank you. [facility] 06-17-2024 Telephone encounter Note Received a call from Alison with [employer]. PH: [phone]. She reports receiving information on a scooter. Alison reports this has to go thru pt's [employer] [facility] and they will fax all information with details to [employer] to be done. I called daughter Loan and she reports they are using [employer] fax:[phone] PH: [phone] Spoke with Amairani and after they received the fax they will go thru it and send forms to be filled out and once those have been returned they will send to [facility] . Information fas been faxed. Kennedi Frey LPN [facility] 06-17-2024 Miscellaneous Notes Received a call from Alison with [employer]. PH: [phone]. She reports receiving information on a scooter. Alison reports this has to go thru pt's [employer] and they will fax all information with details to [employer] for [facility] to be done. I called caesar Cates and she reports they are using [employer] fax:[phone] PH: [phone] Spoke with Amairani and after they received the fax they will go thru it and send forms to be filled out and once those have been returned they will send to [facility] . Information fas been faxed. Kennedi Frey LPN documented in this encounter [facility] 06-16-2024 Telephone encounter Note Will fax letter again as requested. [facility] 06-16-2024 Miscellaneous Notes Will fax letter again as requested. documented in this encounter [facility] 06-09-2024 Telephone encounter Note Prescription Refill Information The patient has been identified by name and date of : Yes Caregiver verified no other encounters exist for this prescription request: Yes Caregiver confirmed with patient/requestor that no other refills are due, in the near future, with this provider at this time: Yes The last office visit in the department: 02/28/2024 Does the patient have a future office visit with this provider/department: Yes Requested Prescriptions Pending Prescriptions Disp Refills colestipol (COLESTID) 1 gram tablet 90 tablet 3 Sig: Take 1 tablet by mouth once daily. Julianna Lynn LPN June 09, 2024 8:49 AM [facility] 06-09-2024 Miscellaneous Notes Prescription Refill Information The patient has been identified by name and date of : Yes Caregiver verified no other encounters exist for this prescription request: Yes Caregiver confirmed with patient/requestor that no other refills are due, in the near future, with this provider at this time: Yes The last office visit in the department: 02/28/2024 Does the patient have a future office visit with this provider/department: Yes Requested Prescriptions Pending Prescriptions Disp Refills colestipol (COLESTID) 1 gram tablet 90 tablet 3 Sig: Take 1 tablet by mouth once daily. Julianna Lynn LPN June 09, 2024 8:49 AM documented in this encounter [facility] 05-31-2024 Note HNO ID: [id number] Author: AMAIRANI MCCLENDON APRN.PECAN SHELLER Service: ? Author Type: Nurse Practitioner Type: Progress Notes Filed: 05/31/2024 08:58 Note Text: Patient came in with complaints of lightheadedness dizziness and weakness. Patient says he feels like he collapsed. Patient does have significant cardiac history including A-fib. At this time patient is being referred to the ER for full evaluation. Patient was okay with this care plan. Patient's caregiver will take him now. [facility] 05-31-2024 History of Presen t illness Narrative Patient came in with complaints of lightheadedness dizziness and weakness. Patient says he feels like he collapsed. Patient does have significant cardiac history including A-fib. At this time patient is being referred to the ER for full evaluation. Patient was okay with this care plan. Patient's caregiver will take him now. documented in this encounter [facility] 05-31-2024 Telephone encounter Note Reason for Call: Family states that patient feels dizzy and near syncopal at this time and too week to stand with a blood pressure of 101/49. Outcome: Family advised to call 911 now for patient per guidelines. Family verbalized understanding of recommendation and care advice and will be calling 911 immediately. Reason for Disposition Shock suspected (e.g., cold/pale/clammy skin, too weak to stand, low BP, rapid pulse) Protocols used: Dizziness - [id number] [facility] 05-31-2024 Miscellaneous Notes Reason for Call: Family states that patient feels dizzy and near syncopal at this time and too week to stand with a blood pressure of 101/49. Outcome: Family advised to call 911 now for patient per guidelines. Family verbalized understanding of recommendation and care advice and will be calling 911 immediately. Reason for Disposition Shock suspected (e.g., cold/pale/clammy skin, too weak to stand, low BP, rapid pulse) Protocols used: Dizziness - [id number] documented in this encounter [facility] 05-05-2024 Telephone encounter Note Prescription Refill Information The patient has been identified by name and date of : Yes Caregiver verified no other encounters exist for this prescription request: Yes Caregiver confirmed with patient/requestor that no other refills are due, in the near future, with this provider at this time: Yes The last office visit in the department: 02/28/24 Does the patient have a future office visit with this provider/department: Yes, 06/20/24 Requested Prescriptions Pending Prescriptions Disp Refills losartan-hydroCHLOROthiazide (HYZAAR) 100-12.5 mg per tablet 90 tablet 1 Sig: Take 1 tablet by mouth once daily. Christian Bob LPN May 05, 2024 5:34 PM [facility] 05-05-2024 Miscellaneous Notes Prescription Refill Information The patient has been identified by name and date of : Yes Caregiver verified no other encounters exist for this prescription request: Yes Caregiver confirmed with patient/requestor that no other refills are due, in the near future, with this provider at this time: Yes The last office visit in the department: 02/28/24 Does the patient have a future office visit with this provider/department: Yes, 06/20/24 Requested Prescriptions Pending Prescriptions Disp Refills losartan-hydroCHLOROthiazide (HYZAAR) 100-12.5 mg per tablet 90 tablet 1 Sig: Take 1 tablet by mouth once daily. Christian Bob LPN May 05, 2024 5:34 PM documented in this encounter [facility] 04-14-2024 Telephone encounter Note Prescription Refill Information The patient has been identified by name and date of : Yes Caregiver verified no other encounters exist for this prescription request: Yes Caregiver confirmed with patient/requestor that no other refills are due, in the near future, with this provider at this time: Yes The last office visit in the department: 02/28/24 Does the patient have a future office visit with this provider/department: Yes, 06/20/24 Requested Prescriptions Pending Prescriptions Disp Refills spironolactone (ALDACTONE) 25 mg tablet 90 tablet 1 Sig: Take 1 tablet by mouth once daily. Christian Bob LPN April 14, 2024 11:53 AM [facility] 04-14-2024 Miscellaneous Notes Prescription Refill Information The patient has been identified by name and date of : Yes Caregiver verified no other encounters exist for this prescription request: Yes Caregiver confirmed with patient/requestor that no other refills are due, in the near future, with this provider at this time: Yes The last office visit in the department: 02/28/24 Does the patient have a future office visit with this provider/department: Yes, 06/20/24 Requested Prescriptions Pending Prescriptions Disp Refills spironolactone (ALDACTONE) 25 mg tablet 90 tablet 1 Sig: Take 1 tablet by mouth once daily. Christian Bob LPN April 14, 2024 11:53 AM documented in this encounter [facility] 04-11-2024 Note HNO ID: [id number] Author: MAGALIE BARDALES, DO Service: ? Author Type: Physician Type: Progress Notes Filed: 04/11/2024 17:32 Note Text: Virtualist Progress Note Triage Call I have communicated my name and active licensure. The patient's identity and physical location were verified at the time of this visit. Either the patient or their legal car sales representative has been informed of the risks and benefits of -- and alternatives to -- treatment through a remote evaluation and consents to proceed with the evaluation remotely. Triage source: Triage Call (Nurse Wardrobe Consultant, [facility] N[facility] Triage, [facility] Triage, [facility] Phone Triage) Was patient downgraded (i.e. disposition other than go to the ED was advised)? Yes Mode of contact: Audio Only Visit History/Physical Exam: 79 y/o male presents with hematuria. Went to ER in [place] yesterday. No records on care everywhere. Daughter states that urine showed blood but no infection. No stones or masses seen on xray. Advised to follow up with urology for cystoscopy. Cannot get in for an appt until April 29. Pt states he does not feel well but cannot put into words how he feels. I suggested getting an appt next week with pcp for follow up and repeat of BW but his daughter is considering taking him to [facility] ER to see if he can have cystoscopy. I stated that if he does not feel well that is a good option. Also rec scheduling an appt for next week and she can always cancel if not needed Nurse Triage Disposition (If call is from [facility], [facility] nurse triage, or an [facility] Care, the disposition is Go to ED Now ): Go to ED Now (or PCP Triage) Virtualist Recommended Disposition: See Provider > 2 days Signed in as Primary Virtualist, Secondary Virtualist, or [facility] Telehealth provider: [facility] 04-11-2024 History of Presen t illness Narrative Virtualist Progress Note Triage Call I have communicated my name and active licensure. The patient's identity and physical location were verified at the time of this visit. Either the patient or their legal car sales representative has been informed of the risks and benefits of -- and alternatives to -- treatment through a remote evaluation and consents to proceed with the evaluation remotely. Triage source: Triage Call (Nurse Wardrobe Consultant, [facility] Triage, [facility] Triage, [facility] Phone Triage) Was patient downgraded (i.e. disposition other than go to the ED was advised)? Yes Mode of contact: Audio Only Visit History/Physical Exam: 79 y/o male presents with hematuria. Went to ER in [place] yesterday. No records on care everywhere. Daughter states that urine showed blood but no infection. No stones or masses seen on xray. Advised to follow up with urology for cystoscopy. Cannot get in for an appt until April 29. Pt states he does not feel well but cannot put into words how he feels. I suggested getting an appt next week with pcp for follow up and repeat of BW but his daughter is considering taking him to [facility] ER to see if he can have cystoscopy. I stated that if he does not feel well that is a good option. Also rec scheduling an appt for next week and she can always cancel if not needed Nurse Triage Disposition (If call is from [facility], [facility] nurse triage, or an [facility] Care, the disposition is Go to ED Now ): Go to ED Now (or PCP Triage) Virtualist Recommended Disposition: See Provider > 2 days Signed in as Primary Virtualist, Secondary Virtualist, or [facility] Telehealth provider: Secondary documented in this encounter [facility] 04-11-2024 Telephone encounter Note Reason for Call: Patient and daughter calling with concerns of blood in urine Outcome: Recommendation to see HCP or PCP Triage within 4 hours Daughter refused ED. Stated they went to [place] ED yesterday and they could not do a Cystoscopy. Has appointment with Urology 04/29. Recommended [facility] ED, daughter wanted to speak to provider Name of Provider contacted for further advice: Dr. Magalie Bardales Provider's recommendation: PCP office visit Sunday or Sunday, go to ED if worsening symptoms Patient was conferenced to [facility] for Sunday appointment scheduling. Reason for Disposition Taking Coumadin (warfarin) or other strong blood thinner, or known bleeding disorder (e.g., thrombocytopenia) Answer Assessment - Initial Assessment Questions 1. COLOR of URINE: Blood in urine 04/10 went to Urologist then to ED in the afternoon, unable to do cystoscopy, scheduled with Urology for 04/29 2. ONSET: 04/06 3. EPISODES: Every urination 4. PAIN with URINATION: Denies 5. FEVER: Denies 6. ASSOCIATED SYMPTOMS: Denies 7. OTHER SYMPTOMS: 04/10 lower back pain , no pain today Protocols used: Urine - Blood In-ADULT- [facility] 04-11-2024 Miscellaneous Notes Reason for Call: Patient and daughter calling with concerns of blood in urine Outcome: Recommendation to see HCP or PCP Triage within 4 hours Daughter refused ED. Stated they went to [place] ED yesterday and they could not do a Cystoscopy. Has appointment with Urology 04/29. Recommended [facility] ED, daughter wanted to speak to provider Name of Provider contacted for further advice: Dr. Magalie Bardales Provider's recommendation: PCP office visit Sunday or Sunday, go to ED if worsening symptoms Patient was conferenced to [facility] for Sunday appointment scheduling. Reason for Disposition Taking Coumadin (warfarin) or other strong blood thinner, or known bleeding disorder (e.g., thrombocytopenia) Answer Assessment - Initial Assessment Questions 1. COLOR of URINE: Blood in urine 04/10 went to Urologist then to ED in the afternoon, unable to do cystoscopy, scheduled with Urology for 04/29 2. ONSET: 04/06 3. EPISODES: Every urination 4. PAIN with URINATION: Denies 5. FEVER: Denies 6. ASSOCIATED SYMPTOMS: Denies 7. OTHER SYMPTOMS: 04/10 lower back pain , no pain today Protocols used: Urine - Blood In-ADULT- documented in this encounter [facility] 04-11-2024 Telephone encounter Note Prescription Refill Information The patient has been identified by name and date of : Yes Caregiver verified no other encounters exist for this prescription request: Yes Caregiver confirmed with patient/requestor that no other refills are due, in the near future, with this provider at this time: Yes The last office visit in the department: 02/2024 Does the patient have a future office visit with this provider/department: Yes 06/2024 Last refill: 09/2023 Requested Prescriptions Pending Prescriptions Disp Refills carvedilol (COREG) 25 mg tablet 180 tablet 1 Sig: Take 1 tablet by mouth two times a day. Najma Mcclendon MA April 11, 2024 8:02 AM [facility] 04-11-2024 Miscellaneous Notes Prescription Refill Information The patient has been identified by name and date of : Yes Caregiver verified no other encounters exist for this prescription request: Yes Caregiver confirmed with patient/requestor that no other refills are due, in the near future, with this provider at this time: Yes The last office visit in the department: 02/2024 Does the patient have a future office visit with this provider/department: Yes 06/2024 Last refill: 09/2023 Requested Prescriptions Pending Prescriptions Disp Refills carvedilol (COREG) 25 mg tablet 180 tablet 1 Sig: Take 1 tablet by mouth two times a day. Najma Mcclendon MA April 11, 2024 8:02 AM documented in this encounter [facility] 04-09-2024 Note HNO ID: [id number] Author: ANDREW GUALLPA APRN.[employer]CAN SHELLER Service: ? Author Type: Nurse Practitioner Type: Progress Notes Filed: 04/09/2024 14:44 Note Text: Subjective HPI Nontoxic-appearing male presents urgent care chief complaint left hand injury. Patient states was shutting door when he scraped his hand on the door frame. Presents today for evaluation. Has an abrasion on his hand. Does take blood thinning medications. States area was more swollen and swelling has improved. No numbness no tingling. Denies any other injuries. Overall feels well. Denies any fever body aches chills productive cough chest pain shortness of breath pleuritic pain hemoptysis nausea vomiting abdominal pain change in bowel or bladder habits. Past medical history prescription medication use and allergies reviewed. .Patient presents with: Edema: Left hand swollen x 1 day PAST MEDICAL HISTORY Diagnosis Date DIABETES MELLITUS [...] REDUCIBLE Hernia repair, umbilical ALLERGIES Amoxicillin MEDICATIONS ELIQUIS 5 mg tab(s) take 1 tablet by mouth twice a day blood sugar diagnostic (BLOOD GLUCOSE TEST) test strip Test blood sugar(s) two times daily. Dx: Type 2 DM - Controlled E11.9 Insulin: Yes albuterol HFA (VENTOLIN HFA) 90 mcg/actuation inhaler Inhale 2 Puffs as instructed every 4 hours as needed. famotidine (PEPCID) 20 mg tablet Take 1 tablet by mouth two times a day. diclofenac (VOLTAREN ARTHRITIS PAIN) 1 % topical gel Apply 2 g to affected area four times daily. insulin lispro (HUMALOG KWIKPEN INSULIN) 100 unit/mL Inject 20 Units subcutaneously three times a day before meals. Getting through [facility] dilTIAZem CD (CARDIZEM CD, CARTIA XT) 120 mg 24 hr capsule Take 1 capsule by mouth once daily. losartan-hydroCHLOROthiazide (HYZAAR) 100-12.5 mg per tablet Take 1 tablet by mouth once daily. spironolactone (ALDACTONE) 25 mg tablet Take 1 tablet by mouth once daily. carvedilol (COREG) 25 mg tablet Take 1 tablet by mouth two times a day. metFORMIN ER (GLUCOPHAGE XR) 500 mg 24 hr tablet Take 2 tablets by mouth two times a day before meals. simvastatin (ZOCOR) 40 mg tablet Take 1 tablet by mouth daily at bedtime. flecainide (TAMBOCOR) 150 mg tablet Take 1 tablet by mouth every 12 hours. Prescribed by outside fundraising specialist colestipol (COLESTID) 1 gram tablet Take 1 tablet by mouth once daily. insulin glargine (BASAGLAR KWIKPEN U-100 INSULIN) 100 unit/mL (3 mL) Inject 90 Units subcutaneously daily at bedtime. finasteride (PROSCAR) 5 mg [...] twice daily. Accucheck compact test strips, dx-NIDDM furosemide (LASIX) 40 mg tablet Take 1 tablet by mouth once daily. (Patient not taking: Reported on 04/09/2024) furosemide (LASIX) 40 mg tablet Take 1 tablet by mouth once daily. (Patient not taking: Reported on 02/28/2024) FAMILY HISTORY Problem Relation Age of Onset Heart Father Hypertension Father Cancer Mother Colon Cancer Sister Cancer Sister Colon Cancer Brother Social History Tobacco Use Smoking status: Former Packs/day: 2.00 Years: 10.00 Additional pack years: 0.00 Total pack years: 20.00 Types: Cigarettes Quit date: 09/17/1980 Years since quittin.5 Smokeless tobacco: Never Vaping Use Vaping Use: Never used Substance Use Topics Alcohol use: No Drug use: No BP 128/84 Pulse 94 Temp 37.1 ?C (98.8 ?F) Resp 20 Wt (!) 140.6 kg (309 lb 15.5 oz) SpO2 93% BMI 40.90 kg/m? Review of Systems Constitutional: Negative for chills, fever and malaise/fatigue. HENT: Negative for congestion, ear discharge, ear pain, sinus pain and sore throat. Eyes: Negative for blurred vision, pain, dis (more content not included)... [facility] 04-09-2024 History of Presen t illness Narrative Images from the original note were not included. Subjective HPI Nontoxic-appearing male presents urgent care chief complaint left hand injury. Patient states was shutting door when he scraped his hand on the door frame. Presents today for evaluation. Has an abrasion on his hand. Does take blood thinning medications. States area was more swollen and swelling has improved. No numbness no tingling. Denies any other injuries. Overall feels well. Denies any fever body aches chills productive cough chest pain shortness of breath pleuritic pain hemoptysis nausea vomiting abdominal pain change in bowel or bladder habits. Past medical history prescription medication use and allergies reviewed. .Patient presents with: Edema: Left hand swollen x 1 day PAST MEDICAL HISTORY Diagnosis Date DIABETES MELLITUS [...] REDUCIBLE Hernia repair, umbilical ALLERGIES Amoxicillin MEDICATIONS ELIQUIS 5 mg tab(s) take 1 tablet by mouth twice a day blood sugar diagnostic (BLOOD GLUCOSE TEST) test strip Test blood sugar(s) two times daily. Dx: Type 2 DM - Controlled E11.9 Insulin: Yes albuterol HFA (VENTOLIN HFA) 90 mcg/actuation inhaler Inhale 2 Puffs as instructed every 4 hours as needed. famotidine (PEPCID) 20 mg tablet Take 1 tablet by mouth two times a day. diclofenac (VOLTAREN ARTHRITIS PAIN) 1 % topical gel Apply 2 g to affected area four times daily. insulin lispro (HUMALOG KWIKPEN INSULIN) 100 unit/mL Inject 20 Units subcutaneously three times a day before meals. Getting through [facility] dilTIAZem CD (CARDIZEM CD, CARTIA XT) 120 mg 24 hr capsule Take 1 capsule by mouth once daily. losartan-hydroCHLOROthiazide (HYZAAR) 100-12.5 mg per tablet Take 1 tablet by mouth once daily. spironolactone (ALDACTONE) 25 mg tablet Take 1 tablet by mouth once daily. carvedilol (COREG) 25 mg tablet Take 1 tablet by mouth two times a day. metFORMIN ER (GLUCOPHAGE XR) 500 mg 24 hr tablet Take 2 tablets by mouth two times a day before meals. simvastatin (ZOCOR) 40 mg tablet Take 1 tablet by mouth daily at bedtime. flecainide (TAMBOCOR) 150 mg tablet Take 1 tablet by mouth every 12 hours. Prescribed by outside fundraising specialist colestipol (COLESTID) 1 gram tablet Take 1 tablet by mouth once daily. insulin glargine (BASAGLAR KWIKPEN U-100 INSULIN) 100 unit/mL (3 mL) Inject 90 Units subcutaneously daily at bedtime. finasteride (PROSCAR) 5 mg [...] twice daily. Accucheck compact test strips, dx-NIDDM furosemide (LASIX) 40 mg tablet Take 1 tablet by mouth once daily. (Patient not taking: Reported on 04/09/2024) furosemide (LASIX) 40 mg tablet Take 1 tablet by mouth once daily. (Patient not taking: Reported on 02/28/2024) FAMILY HISTORY Problem Relation Age of Onset Heart Father Hypertension Father Cancer Mother Colon Cancer Sister Cancer Sister Colon Cancer Brother Social History Tobacco Use Smoking status: Former Packs/day: 2.00 Years: 10.00 Additional pack years: 0.00 Total pack years: 20.00 Types: Cigarettes Quit date: 09/17/1980 Years since quittin.5 Smokeless tobacco: Never Vaping Use Vaping Use: Never used Substance Use Topics Alcohol use: No Drug use: No BP 128/84 Pulse 94 Temp 37.1 C (98.8 F) Resp 20 Wt (!) 140.6 kg (309 lb 15.5 oz) SpO2 93% BMI 40.90 kg/m Review of Systems Constitutional: Negative for chills, fever and malaise/fatigue. HENT: Negative for congestion, ear discharge, ear pain, sinus pain and sore throat. Eyes: Negative for blurred vision, pain, discharge and redness. Respiratory: Negative for cough, hemoptysis, sputum production, shortness of breath, wheezing and stridor. Cardiovascular: Negative for chest pain. Gastrointestinal: Negative for abdominal pain, diarrhea, nausea and vomiting. Musculoskeletal: Negative for myalgias. Left hand abrasion Skin: Negative for itching and rash. Neurological: Negative for dizziness and headaches. Objective Physical Exam Constitutional: General: He is not in acute distress. Appearance: He is not toxic-appearing. HENT: Head: Normocephalic. Nose: Nose normal. Eyes: Pupils: Pupils are equal, round, and reactive to light. Cardiovascular: Rate and Rhythm: Normal rate. Pulmonary: Effort: Pulmonary effort is normal. No respiratory distress. Musculoskeletal: Hands: Cervical back: Normal range of motion. Comments: A 5 mm x 5 mm abrasion noted. Surrounding ecchymosis noted. No erythema. Mild edema. Neurovascular intact. No tenderness with palpation to metacarpals or phalanges. Skin: General: Skin is warm and dry. Neurological: General: No focal deficit present. Mental Status: He is alert. ASSESSMENT/PLAN: 1. Abrasion of left hand, initial encounter - ICD9: 914.0, ICD10: S60.512A Diagnosed with left hand abrasion. Placed on mupirocin. At this time no evidence of bacterial infection noted. Will treat conservatively. Patient was educated on supportive therapies. Patient will follow up with primary care provider as needed. Patient was instructed to immediately proceed to emergency room for any new, worsening, or symptoms lasting longer than anticipated. The patient's clinical presentation is otherwise unremarkable at this time. Based on exam and clinical finding, the patient is stable for discharge. Plan of care was discussed with patient. Patient verbalizes understanding and agrees to plan of care. This note was generated using localbacon software. It may contain errors in wording, punctuation, or spelling. Andrew Guallpa APRN.PECAN SHELLER documented in this encounter [facility] 03-24-2024 Telephone encounter Note Reviewed venous insuffiencey and labs. His diltiazem may be contributing. Offered to see him if need be. Discussed compression hose. Keep cool and elevated. Offered vascular eval as well. Daughter's questions answered. [facility] 03-24-2024 Miscellaneous Notes Reviewed venous insuffiencey and labs. His diltiazem may be contributing. Offered to see him if need be. Discussed compression hose. Keep cool and elevated. Offered vascular eval as well. Daughter's questions answered. This is her response to the message that Prosper sent from his lab results on 02/28/24. Please review message regarding pt. Marilin Stein MA documented in this encounter [facility] 03-24-2024 Telephone encounter Note This is her response to the message that Prosper sent from his lab results on 02/28/24. [facility] 03-22-2024 Telephone encounter Note Please review message regarding pt. Marilin Stein MA [facility] 03-21-2024 Telephone encounter Note Patient's daughter notified of results and provider's instructions. Patient daughter verbalizes understanding. Reanna Greenberg RN [facility] 03-21-2024 Miscellaneous Notes Patient's daughter notified of results and provider's instructions. Patient daughter verbalizes understanding. Reanna Greenberg RN Left vm on daughters vm to return call to nurse for provider's message, regarding patient's US results. Please advise: Ultrasound showed as expected venous incompetence in the left leg. None in the right and no blood clots. Both sides with large varicosities. Options for treatment would be: 1. compression stockings- they would need to be measured and fitted: zippered stockings would be easier to get on. 2. PT consult for lymphedema and possible home leg pumps to reduce swelling. [facility] 03[facility]21/24 [facility] CONSULT TO LYMPHEDEMA THERAPY Venous incompetence (primary encounter diagnosis) Lymphedema of left leg Varicose veins of both legs with edema Prosper Patel PA-C documented in this encounter [facility] 03-21-2024 Telephone encounter Note Left vm on daughters vm to return call to nurse for provider's message, regarding patient's US results. [facility] 03-21-2024 Telephone encounter Note Please advise: Ultrasound showed as expected venous incompetence in the left leg. None in the right and no blood clots. Both sides with large varicosities. Options for treatment would be: 1. compression stockings- they would need to be measured and fitted: zippered stockings would be easier to get on. 2. PT consult for lymphedema and possible home leg pumps to reduce swelling. Telephone on 03/21/24 [employer] KNEE HI 30-40WT CONSULT TO LYMPHEDEMA THERAPY Venous incompetence (primary encounter diagnosis) Lymphedema of left leg Varicose veins of both legs with edema Prosper Patel PA-C [facility] 03-19-2024 Telephone encounter Note Daughter notified with results below and report faxed to [facility]. Kennedi Frey LPN [facility] 03-19-2024 Miscellaneous Notes Daughter notified with results below and report faxed to [facility]. Kennedi Frey LPN Phoned patient and given provider's message below. Patient reports he is [employer] and asked this nurse to call his daughter, Loan, to give her the message. Left vm on Loan's vm asking her to return call to triage nurse for provider's message. Please advise Faisal that his echo shows normal pumping power though slightly less than prior study. The left ventricle is a little beefy which usually comes from high blood pressure, but he also mild to moderate aortic valve stenosis meaning the heart has to work harder to pump through that narrowed space: also a little worse than last time with some calcification on the valve. The peak gradient is 32mmHg, up from 13 mmHg. He follows with [facility]: please have him follow up with them in next few months and please have the echo sent there for them to review. Thanks, Prosper Travis PA-C documented in this encounter [facility] 03-19-2024 Telephone encounter Note Phoned patient and given provider's message below. Patient reports he is [employer] and asked this nurse to call his daughter, Loan, to give her the message. Left vm on Loan's vm asking her to return call to triage nurse for provider's message. [facility] 03-19-2024 Telephone encounter Note Please advise Faisal that his echo shows normal pumping power though slightly less than prior study. The left ventricle is a little beefy which usually comes from high blood pressure, but he also mild to moderate aortic valve stenosis meaning the heart has to work harder to pump through that narrowed space: also a little worse than last time with some calcification on the valve. The peak gradient is 32mmHg, up from 13 mmHg. He follows with [facility]: please have him follow up with them in next few months and please have the echo sent there for them to review. Thanks, Prosper Travis PA-C [facility] 03-06-2024 Telephone encounter Note Patient contacted pharmacy and requests refills as follows: Requested Prescriptions Pending Prescriptions Disp Refills ELIQUIS 5 mg tab(s) [Pharmacy Med Name: ELIQUIS 5 MG TABLET] 60 tablet 1 Sig: take 1 tablet by mouth twice a day TRX INSTRUCTIONS: Patient aware RX will be sent to pharmacy. No need to notify patient. Patient has been identified by name and date of : No Nasra Muñiz LPN [facility] 03-06-2024 Miscellaneous Notes Patient contacted pharmacy and requests refills as follows: Requested Prescriptions Pending Prescriptions Disp Refills ELIQUIS 5 mg tab(s) [Pharmacy Med Name: ELIQUIS 5 MG TABLET] 60 tablet 1 Sig: take 1 tablet by mouth twice a day TRX INSTRUCTIONS: Patient aware RX will be sent to pharmacy. No need to notify patient. Patient has been identified by name and date of : No Nasra Muñiz LPN documented in this encounter [facility] 02-28-2024 History of Presen t illness Narrative 78 year old male with c/ohx non-obstructive coronary artery disease, HTN, pAF on anticoag, restrictive lung disease here for 4 week follow up on SOB, leg swelling Lasix 40mg daily x 5 without change in weight , leg edema. From last visit notes: SOB if he tries to do anything, nothing new- attributes to beta salvador, but daughter states preceded. Reaffirms the following: Sleeps in bed, one pillow, usually lays on right side No chest/ neck/ shoulder or arm pain Not feeling weak. No recent colds or infections. No lower leg pain or tenderness 500 feet walking with dyspnea- not new. Sees [facility], last visit 10/24/2023: Notes identified paroxysmal atrial fibrillation appears stable, continue same medications, discussed repeating echo and stress EKG, no other changes. 09/22/2023 twelve-lead ECG: Normal sinus rhythm first-degree AV block 86 bpm, RBBB, QRS 156 11/21/2022 stress test negative for ischemia 01/27/2021 echocardiogram: LV size WNL, mild concentric LVH, LV SF WNL: EF 65 5%, grade 1 LVDD RV normal in size and RV SF, insufficient TR to estimate RVSP. RAP 8 mmHg per IVC LA size WNL RA size unable to measure due to technical limitation No significant valvular abnormalities 02/05/2024 CXR: No developing or acute process Today state always is this SOB, nothing new No recent infections or illness sx. Latest Ref Rng 11/28/2023 02/04/2024 WBC 3.70 - 11.00 k/uL 10.24 11.18 (H) RBC 4.20 - 6.00 m/uL 5.01 4.75 Hemoglobin 13.0 - 17.0 g/dL 14.1 13.5 Hematocrit 39.0 - 51.0 % 43.7 41.9 MCV 80.0 - 100.0 fL 87.2 88.2 MCH 26.0 - 34.0 pg 28.1 28.4 MCHC 30.5 - 36.0 g/dL 32.3 32.2 RDW-CV 11.5 - 15.0 % 13.9 12.9 Platelet Count 150 - 400 k/uL 280 256 MPV 9.0 - 12.7 fL 11.3 11.4 Neut% % 61.9 70.9 Abs Neut (ANC) 1.45 - 7.50 k/uL 6.34 7.91 (H) Lymph% % 22.6 14.2 Abs Lymph 1.00 - 4.00 k/uL 2.31 1.59 Shannon% % 11.1 11.1 Abs Shannon <0.87 k/uL 1.14 (H) 1.24 (H) Eosin% % 3.4 3.0 Abs Eosin <0.46 k/uL 0.35 0.34 Baso% % 0.5 0.4 Abs Baso <0.11 k/uL 0.05 0.05 Immature Gran % % 0.5 0.4 IMMATURE GRANS (ABS) <0.10 k/uL 0.05 0.05 NRBC /100 WBC 0.0 0.0 Absolute nRBC <0.01 k/uL <0.01 <0.01 DTYPE Auto Auto Protein, Total 6.3 - 8.0 g/dL 6.8 Albumin 3.9 - 4.9 g/dL 4.0 Calcium 8.5 - 10.2 mg/dL 9.8 9.4 Bilirubin, Total 0.2 - 1.3 mg/dL 0.3 Alkaline Phosphatase 38 - 113 U/L 78 AST 14 - 40 U/L 22 ALT 10 - 54 U/L 19 Glucose 74 - 99 mg/dL 117 (H) 150 (H) BUN 9 - 24 mg/dL 25 (H) 26 (H) Creatinine 0.73 - 1.22 mg/dL 1.06 0.90 Sodium 136 - 144 mmol/L 135 (L) 135 (L) Potassium 3.7 - 5.1 mmol/L 4.3 4.8 Chloride 97 - 105 mmol/L 100 98 CO2 22 - 30 mmol/L 24 21 (L) Anion Gap 9 - 18 mmol/L 11 16 eGFR >=60 mL/min/1.73m 71 87 Cholesterol, Total <200 mg/dL 118 Triglyceride <150 mg/dL 131 HDL Cholesterol >39 mg/dL 37 (L) Non HDL Cholesterol <130 mg/dL 81 Fasting Time hrs 12 VLDL Cholesterol <30 mg/dL 26 TC:HDL Ratio <5.10 3.19 LDL Cholesterol <100 mg/dL 55 LDL:HDL Ratio <2.54 1.49 Creatinine, Ur Random (UCRR) 20.0 - 300.0 mg/dL 61.6 Albumin, Urine Random mg/L <12.0 Albumin/Creat Ratio <30 mg/g <19 Hemoglobin A1C 4.3 - 5.6 % 8.0 (H) Estimated Average Glucose mg/dL 183 NT Pro BNP <450 pg/mL 83 TSH 0.270 - 4.200 mIU/L 1.670 HISTORIES FAMILY HISTORY Problem Relation Age of [...] ACTIVE PROBLEM LIST Other Psoriasis Essential Hypertension 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 5 tablet 0 blood sugar diagnostic (BLOOD GLUCOSE TEST) test strip Test blood sugar(s) two times daily. Dx: Type 2 DM - Controlled E11.9 Insulin: Yes 200 Strip 3 albuterol HFA (VENTOLIN HFA) 90 mcg/actuation inhaler Inhale 2 Puffs as instructed every 4 hours as needed. 1 Each 1 famotidine (PEPCID) 20 mg tablet Take 1 tablet by mouth two times a day. 180 tablet 1 ELIQUIS 5 mg tab(s) Take 1 tablet by mouth two times a day. 60 tablet 1 diclofenac (VOLTAREN ARTHRITIS PAIN) 1 % topical gel Apply 2 g to affected area four times daily. 240 g 11 insulin lispro (HUMALOG KWIKPEN INSULIN) 100 unit/mL Inject 20 Units subcutaneously three times a day before meals. Getting through [employer] [facility] 5 Each 1 dilTIAZem CD (CARDIZEM CD, CARTIA XT) 120 mg 24 hr capsule Take 1 capsule by mouth once daily. 90 capsule 3 losartan-hydroCHLOROthiazide (HYZAAR) 100-12.5 mg per tablet Take 1 tablet by mouth once daily. 90 tablet 1 spironolactone (ALDACTONE) 25 mg tablet Take 1 tablet by mouth once daily. 90 tablet 1 carvedilol (COREG) 25 mg tablet Take 1 tablet by mouth two times a day. 180 tablet 1 metFORMIN ER (GLUCOPHAGE XR) 500 mg 24 hr tablet Take 2 tablets by mouth two times a day before meals. 360 tablet 3 simvastatin (ZOCOR) 40 mg tablet Take 1 tablet by mouth daily at bedtime. 90 tablet 3 flecainide (TAMBOCOR) 150 mg tablet Take 1 tablet by mouth every 12 hours. Prescribed by outside fundraising specialist 60 tablet 0 colestipol (COLESTID) 1 gram tablet Take 1 tablet by mouth once daily. 90 tablet 3 insulin glargine (BASAGLAR KWIKPEN U-100 INSULIN) 100 unit/mL (3 mL) Inject 90 Units subcutaneously daily at bedtime. 15 mL 3 finasteride (PROSCAR) 5 mg tablet aspirin 81 [...] No current facility-administered medications for this visit. There are no preventive care reminders to display for this patient. EXAM: BP 162/68 (BP Site: Left Arm) Pulse 85 Wt (!) 139.9 kg (308 lb 6.4 oz) SpO2 94% BMI 40.69 kg/m BP 148/86 (BP Site: Left Arm, BP Position: Sitting) Pulse 85 Wt (!) 139.9 kg (308 lb 6.4 oz) SpO2 94% BMI 40.69 kg/m Pleasant morbidly obese adult man in no acute distress. Alert and oriented all spheres. Normal affect and cognition. Speech normal. No deficits to learning or comprehension. Hyper somnolent: drowsed 3-4 times during interview. Somewhat cushingoid facies, striae,increasing weight and edema. Skin warm, dry, pink to lips and nailbeds. Normal turgor. Respirations regular and unlabored. HEENT: NCAT. No scleral icterus or conjunctival injection. TM's clear. Nose and oropharynx free from injection or lesion. Oral membranes moist and pink. No cervical lymph nodes. Thyroid non-tender, no masses, or enlargement. Carotids pulses 2+/4+ without bruits. No JVD with HOB at 30 degrees. Extrem: no clubbing or cyanosis. Edema: 0-1/4+ RLL, 2/4+ LLL. Extremities are warm and pink with prompt capillary refill. Legs are non-tender. Multiple varicosities. ASSESSMENT/PLAN: 1. Varicose veins of both lower extremities with inflammation - ICD9: 454.1, ICD10: I83.11, I83.12 (primary diagnosis) Suspect incompetence Take lasix 40mg x 3 days with weight prior to starting and then daily until completed and report through mychart - FUROSEMIDE 40 MG TABLET - BASIC METABOLIC PANEL - NT PRO BNP - US VENOUS INCOMPETENCY [facility] 2. Venous incompetence - ICD9: 459.81, ICD10: I87.2 - FUROSEMIDE 40 MG TABLET - BASIC METABOLIC PANEL - NT PRO BNP 3. Bilateral leg edema - ICD9: 782.3, ICD10: R60.0 - FUROSEMIDE 40 MG TABLET - BASIC METABOLIC PANEL - NT PRO BNP - ECHO - PERFLUTREN LIPID MICROSPHERES 1.1 MG/ML INJECTION IN NS 10 ML - SODIUM CHLORIDE 0.9 % (FLUSH) INJECTION SYRINGE 4. SOB (shortness of breath) - ICD9: 786.05, ICD10: R06.02 - ECHO - PERFLUTREN LIPID MICROSPHERES 1.1 MG/ML INJECTION IN NS 10 ML - SODIUM CHLORIDE 0.9 % (FLUSH) INJECTION SYRINGE 5. Weight gain - ICD9: 783.1, ICD10: R63.5 - ECHO - PERFLUTREN LIPID MICROSPHERES 1.1 MG/ML INJECTION IN NS 10 ML - SODIUM CHLORIDE 0.9 % (FLUSH) INJECTION SYRINGE - CORTISOL, SERUM 6. CJ (obstructive sleep apnea) - ICD9: 327.23, ICD10: G47.33 - CONSULT TO SLEEP MEDICINE - ADULT 7. Hypersomnolence - ICD9: 780.54, ICD10: G47.10 - CONSULT TO SLEEP MEDICINE - ADULT - CORTISOL, SERUM 8. Cushingoid facies - ICD9: 799.89, ICD10: R68.89 - CORTISOL, SERUM F/u 6 weeks after testing completed. Osvaldo Travis PA-C documented in this encounter [facility] 02-28-2024 Note HNO ID: [id number] Author: Osvaldo TRAVIS PA-C Service: ? Author Type: Physician Quick Service Technician Type: Progress Notes Filed: 02/28/2024 14:02 Note Text: 78 year old male with c/ohx non-obstructive coronary artery disease, HTN, pAF on anticoag, restrictive lung disease here for 4 week follow up on SOB, leg swelling Lasix 40mg daily x 5 without change in weight , leg edema. From last visit notes: SOB if he tries to do anything, nothing new- attributes to beta salvador, but daughter states preceded. Reaffirms the following: Sleeps in bed, one pillow, usually lays on right side No chest/ neck/ shoulder or arm pain Not feeling weak. No recent colds or infections. No lower leg pain or tenderness 500 feet walking with dyspnea- not new. Sees [facility], last visit 10/24/2023: Notes identified paroxysmal atrial fibrillation appears stable, continue same medications, discussed repeating echo and stress EKG, no other changes. 09/22/2023 twelve-lead ECG: Normal sinus rhythm first-degree AV block 86 bpm, RBBB, QRS 156 11/21/2022 stress test negative for ischemia 01/27/2021 echocardiogram: LV size WNL, mild concentric LVH, LV SF WNL: EF 65?5%, grade 1 LVDD RV normal in size and RV SF, insufficient TR to estimate RVSP. RAP 8 mmHg per IVC LA size WNL RA size unable to measure due to technical limitation No significant valvular abnormalities 02/05/2024 CXR: No developing or acute process Today state always is this SOB, nothing new No recent infections or illness sx. Latest Ref Rng 11/28/2023 02/04/2024 WBC 3.70 - 11.00 k/uL 10.24 11.18 (H) RBC 4.20 - 6.00 m/uL 5.01 4.75 Hemoglobin 13.0 - 17.0 g/dL 14.1 13.5 Hematocrit 39.0 - 51.0 % 43.7 41.9 MCV 80.0 - 100.0 fL 87.2 88.2 MCH 26.0 - 34.0 pg 28.1 28.4 MCHC 30.5 - 36.0 g/dL 32.3 32.2 RDW-CV 11.5 - 15.0 % 13.9 12.9 Platelet Count 150 - 400 k/uL 280 256 MPV 9.0 - 12.7 fL 11.3 11.4 Neut% % 61.9 70.9 Abs Neut (ANC) 1.45 - 7.50 k/uL 6.34 7.91 (H) Lymph% % 22.6 14.2 Abs Lymph 1.00 - 4.00 k/uL 2.31 1.59 Shannon% % 11.1 11.1 Abs Shannon <0.87 k/uL 1.14 (H) 1.24 (H) Eosin% % 3.4 3.0 Abs Eosin <0.46 k/uL 0.35 0.34 Baso% % 0.5 0.4 Abs Baso <0.11 k/uL 0.05 0.05 Immature Gran % % 0.5 0.4 IMMATURE GRANS (ABS) <0.10 k/uL 0.05 0.05 NRBC /100 WBC 0.0 0.0 Absolute nRBC <0.01 k/uL <0.01 <0.01 DTYPE Auto Auto Protein, Total 6.3 - 8.0 g/dL 6.8 Albumin 3.9 - 4.9 g/dL 4.0 Calcium 8.5 - 10.2 mg/dL 9.8 9.4 Bilirubin, Total 0.2 - 1.3 mg/dL 0.3 Alkaline Phosphatase 38 - 113 U/L 78 AST 14 - 40 U/L 22 ALT 10 - 54 U/L 19 Glucose 74 - 99 mg/dL 117 (H) 150 (H) BUN 9 - 24 mg/dL 25 (H) 26 (H) Creatinine 0.73 - 1.22 mg/dL 1.06 0.90 Sodium 136 - 144 mmol/L 135 (L) 135 (L) Potassium 3.7 - 5.1 mmol/L 4.3 4.8 Chloride 97 - 105 mmol/L 100 98 CO2 22 - 30 mmol/L 24 21 (L) Anion Gap 9 - 18 mmol/L 11 16 eGFR >=60 mL/min/1.73m? 71 87 Cholesterol, Total <200 mg/dL 118 Triglyceride <150 mg/dL 131 HDL Cholesterol >39 mg/dL 37 (L) Non HDL Cholesterol <130 mg/dL 81 Fasting Time hrs 12 VLDL Cholesterol <30 mg/dL 26 TC:HDL Ratio <5.10 3.19 LDL Cholesterol <100 mg/dL 55 LDL:HDL Ratio <2.54 1.49 Creatinine, Ur Random (UCRR) 20.0 - 300.0 mg/dL 61.6 Albumin, Urine Random mg/L <12.0 Albumin/Creat Ratio <30 mg/g <19 Hemoglobin A1C 4.3 - 5.6 % 8.0 (H) Estimated Average Glucose mg/dL 183 NT Pro BNP <450 pg/mL 83 TSH 0.270 - 4.200 mIU/L 1.670 HISTORIES FAMILY HISTORY Problem Relation Age of [...] ACTIVE PROBLEM LIST Other Psoriasis Essential Hypertension 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 [facility] 02-12-2024 Telephone encounter Note Patient's daughter was made aware of the results and verbalizes understanding. Janet King Ma [facility] 02-12-2024 Miscellaneous Notes Patient's daughter was made aware of the results and verbalizes understanding. Janet King Ma Check weight daily and call if weight goes up over three lbs in 24 hours. Call if worsening swelling or shortness of breath. His EKG is unchanged. It was read the day he was here when Prosper saw him. Triage protocol Recommended: Provider to Advise. Please call pt's daughter Loan Brooks with response. Thank you. Reason for Disposition Nursing judgment or information in reference Answer Assessment - Initial Assessment Questions Spoke with pt's daughter Loan Brooks and patient-both were on phone together. 1. Daughter would like to inform Prosper Travis that patient completed his 5 day Lasix regimen that Prosper ordered for last week. Pt is down a total of 5 lbs since OV on 02/03 but legs and ankles remain swollen but a little bit better . SOB with exertion continues, has not worsened. No SOB at rest, currently. NO chest, neck, arm or shoulder pain. Pt has no complaints this morning. Pt to see Prosper on 02/27 for 4 week follow up. Daughter asking Prosper if pt needs more Lasix? 2. Daughter asking Prosper to advise on pt's recent EKG result. 1. REASON FOR CALL: see message from 02/09, as copied below. 2. ONSET: see OV note 02/03 3. SEVERITY: unchanged 4. FEVER: no 5. OTHER SYMPTOMS: as above 6. TREATMENTS AND RESPONSE: completed Lasix x 5 days as ordered Protocols used: No Guideline [id number] Message left for pt's daughter Loan Brooks, to call provider's office and ask for a nurse to discuss MC message received on 01/11/24, regarding patient, as copied: Faisal Alarcon to P [facility] My Chart Rx Pool (supporting M Luis Travis PA-C) 02/10/24 2:56 PM Hi Mr. Travis, After the five days of being on lasiks, dad has only lost three pounds. His ankles and feet are still swollen. So still have concern regarding this. Also, his EKG Rhythm Strip is quite concerning to me. Please advise! Angelina Bliss RN documented in this encounter [facility] 02-12-2024 Telephone encounter Note Check weight daily and call if weight goes up over three lbs in 24 hours. Call if worsening swelling or shortness of breath. His EKG is unchanged. It was read the day he was here when Prosper saw him. [facility] 02-12-2024 Telephone encounter Note Triage protocol Recommended: Provider to Advise. Please call pt's daughter Loan Brooks with response. Thank you. Reason for Disposition Nursing judgment or information in reference Answer Assessment - Initial Assessment Questions Spoke with pt's daughter Loan Brooks and patient-both were on phone together. 1. Daughter would like to inform Prosper Travis that patient completed his 5 day Lasix regimen that Prosper ordered for last week. Pt is down a total of 5 lbs since OV on 02/03 but legs and ankles remain swollen but a little bit better . SOB with exertion continues, has not worsened. No SOB at rest, currently. NO chest, neck, arm or shoulder pain. Pt has no complaints this morning. Pt to see Prosper on 02/27 for 4 week follow up. Daughter asking Prosper if pt needs more Lasix? 2. Daughter asking Prosper to advise on pt's recent EKG result. 1. REASON FOR CALL: see MC message from 02/09, as copied below. 2. ONSET: see OV note 02/03 3. SEVERITY: unchanged 4. FEVER: no 5. OTHER SYMPTOMS: as above 6. TREATMENTS AND RESPONSE: completed Lasix x 5 days as ordered Protocols used: No Guideline [id number] [facility] 02-12-2024 Telephone encounter Note Message left for pt's daughter Loan Brooks, to call provider's office and ask for a nurse to discuss MC message received on 01/11/24, regarding patient, as copied: Faisal Alarcon to P [facility] My Chart Rx Pool (supporting Osvaldo Travis PA-C) 02/10/24 2:56 PM Hi Mr. Travis, After the five days of being on lasiks, dad has only lost three pounds. His ankles and feet are still swollen. So still have concern regarding this. Also, his EKG Rhythm Strip is quite concerning to me. Please advise! Angelina Bliss RN [facility] 02-04-2024 Instructions Osvaldo Travis PA-C - 02/04/2024 12:49 PM EDT Trial lasix 40mg daily x 5 days Check weight at home prior to starting Recheck weight in 5 days and report to me documented in this encounter [facility] 02-04-2024 History of Presen t illness Narrative Radiology Service Progress Note PATIENT NAME: Faisal Alarcon DATE OF SERVICE: February 04, 2024 TIME: 12:16 PM PATIENT IDENTITY VERIFICATION COMPLETED USING TWO [...] Male PATIENT RELEVANT IMPLANT DATA REVIEWED: Yes PATIENT PRESENTS WITH AN IMPLANTABLE OR ATTACHED BOMB TECHNICIAN: No RADIOLOGY DEPARTMENT: General X-ray: Exam(s) Completed: Chest X-Ray PERIPHERAL IV DATA: Not applicable SIGNED BY: RT Griselda(Leslee) February 04, 2024 12:16 PM documented in this encounter [facility] 02-04-2024 Note HNO ID: [id number] Author: KAMERON ARRINGTON RT(R) Service: Radiology Author Type: Technologist Type: Progress Notes Filed: 02/04/2024 12:27 Note Text: Radiology Service Progress Note PATIENT NAME: Faisal Alarcon DATE OF SERVICE: February 04, 2024 TIME: 12:16 PM PATIENT IDENTITY VERIFICATION COMPLETED USING TWO [...] Male PATIENT RELEVANT IMPLANT DATA REVIEWED: Yes PATIENT PRESENTS WITH AN IMPLANTABLE OR ATTACHED BOMB TECHNICIAN: No RADIOLOGY DEPARTMENT: General X-ray: Exam(s) Completed: Chest X-Ray PERIPHERAL IV DATA: Not applicable SIGNED BY: RT Griselda(Leslee) February 04, 2024 12:16 PM [facility] 02-04-2024 Note HNO ID: [id number] Author: Osvaldo TRAVIS PA-C Service: ? Author Type: Physician Quick Service Technician Type: Progress Notes Filed: 02/04/2024 13:25 Note Text: 78 year old male with hx non-obstructive coronary artery disease, HTN, pAF on anticoag, restrictive lung disease c/o swelling in both legs over last three days SOB if he tries to do anything, nothing new- attributes to beta salvador. Sleeps in bed, one pillow, usually lays on right side No chest/ neck/ shoulder or arm pain Not feeling weak. No recent colds or infections. No lower leg pain or tenderness 500 feet walking with dyspnea- not new. Sees [facility], last visit 10/24/2023: Notes identified paroxysmal atrial fibrillation appears stable, continue same medications, discussed repeating echo and stress EKG, no other changes. 09/22/2023 twelve-lead ECG: Normal sinus rhythm first-degree AV block 86 bpm, RBBB, QRS 156 11/21/2022 stress test negative for ischemia 01/27/2021 echocardiogram: LV size WNL, mild concentric LVH, LV SF WNL: EF 65?5%, grade 1 LVDD RV normal in size and RV SF, insufficient TR to estimate RVSP. 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 Dx: Type 2 DM - Controlled E11.9 Insulin: Yes 200 Strip 3 albuterol HFA (VENTOLIN HFA) 90 mcg/actuation inhaler Inhale 2 Puffs as instructed every 4 hours as needed. 1 Each 1 famotidine (PEPCID) 20 mg tablet Take 1 tablet by mouth two times a day. 180 tablet 1 ELIQUIS 5 mg tab(s) Take 1 tablet by mouth two times a day. 60 tablet 1 diclofenac (VOLTAREN ARTHRITIS PAIN) 1 % topical gel Apply 2 g to affected area four times daily. 240 g 11 insulin lispro (HUMALOG KWIKPEN INSULIN) 100 unit/mL Inject 20 Units subcutaneously three times a day before meals. Getting through [employer] 5 Each 1 dilTIAZem CD (CARDIZEM CD, CARTIA XT) 120 mg 24 hr capsule Take 1 capsule by mouth once daily. 90 capsule 3 losartan-hydroCHLOROthiazide (HYZAAR) 100-12.5 mg per tablet Take 1 tablet by mouth once daily. 90 tablet 1 spironolactone (ALDACTONE) 25 mg tablet Take 1 tablet by mouth once daily. 90 tablet 1 carvedilol (COREG) 25 mg tablet Take 1 tablet by mouth two times a day. 180 tablet 1 metFORMIN ER (GLUCOPHAGE XR) 500 mg 24 hr tablet Take 2 tablets by mouth two times a day before meals. 360 tablet 3 simvastatin (ZOCOR) 40 mg tablet Take 1 tablet by mouth daily at bedtime. 90 tablet 3 colestipol (COLESTID) 1 gram tablet Take 1 tablet by mouth once daily. 90 tablet 3 insulin glargine (BASAGLAR KWIKPEN U-100 INSULIN) 100 unit/mL (3 mL) Inject 90 Units subcutaneously daily at bedtime. 15 mL 3 finasteride (PROSCAR) 5 mg tablet aspirin 81 mg chewable tablet Take 81 mg by mouth once daily. insulin needles, (more content not included)... [facility] 02-04-2024 History of Presen t illness Narrative 78 year old male with hx non-obstructive coronary artery disease, HTN, pAF on anticoag, restrictive lung disease c/o swelling in both legs over last three days SOB if he tries to do anything, nothing new- attributes to beta salvador. Sleeps in bed, one pillow, usually lays on right side No chest/ neck/ shoulder or arm pain Not feeling weak. No recent colds or infections. No lower leg pain or tenderness 500 feet walking with dyspnea- not new. Sees [facility], last visit 10/24/2023: Notes identified paroxysmal atrial fibrillation appears stable, continue same medications, discussed repeating echo and stress EKG, no other changes. 09/22/2023 twelve-lead ECG: Normal sinus rhythm first-degree AV block 86 bpm, RBBB, QRS 156 11/21/2022 stress test negative for ischemia 01/27/2021 echocardiogram: LV size WNL, mild concentric LVH, LV SF WNL: EF 65 5%, grade 1 LVDD RV normal in size and RV SF, insufficient TR to estimate RVSP. 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 Dx: Type 2 DM - Controlled E11.9 Insulin: Yes 200 Strip 3 albuterol HFA (VENTOLIN HFA) 90 mcg/actuation inhaler Inhale 2 Puffs as instructed every 4 hours as needed. 1 Each 1 famotidine (PEPCID) 20 mg tablet Take 1 tablet by mouth two times a day. 180 tablet 1 ELIQUIS 5 mg tab(s) Take 1 tablet by mouth two times a day. 60 tablet 1 diclofenac (VOLTAREN ARTHRITIS PAIN) 1 % topical gel Apply 2 g to affected area four times daily. 240 g 11 insulin lispro (HUMALOG KWIKPEN INSULIN) 100 unit/mL Inject 20 Units subcutaneously three times a day before meals. Getting through [facility] 5 Each 1 dilTIAZem CD (CARDIZEM CD, CARTIA XT) 120 mg 24 hr capsule Take 1 capsule by mouth once daily. 90 capsule 3 losartan-hydroCHLOROthiazide (HYZAAR) 100-12.5 mg per tablet Take 1 tablet by mouth once daily. 90 tablet 1 spironolactone (ALDACTONE) 25 mg tablet Take 1 tablet by mouth once daily. 90 tablet 1 carvedilol (COREG) 25 mg tablet Take 1 tablet by mouth two times a day. 180 tablet 1 metFORMIN ER (GLUCOPHAGE XR) 500 mg 24 hr tablet Take 2 tablets by mouth two times a day before meals. 360 tablet 3 simvastatin (ZOCOR) 40 mg tablet Take 1 tablet by mouth daily at bedtime. 90 tablet 3 colestipol (COLESTID) 1 gram tablet Take 1 tablet by mouth once daily. 90 tablet 3 insulin glargine (BASAGLAR KWIKPEN U-100 INSULIN) 100 unit/mL (3 mL) Inject 90 Units subcutaneously daily at bedtime. 15 mL 3 finasteride (PROSCAR) 5 mg tablet aspirin 81 [...] compact test strips, dx-NIDDM 6 Units 11 flecainide (TAMBOCOR) 150 mg tablet Take 1 tablet by mouth every 12 hours. Prescribed by outside fundraising specialist 60 tablet 0 No current facility-administered medications for this visit. BP Controlled (<130/80) Never done EXAM: BP 113/69 Pulse 73 Resp 18 Wt 134.7 kg (297 lb) SpO2 94% BMI 39.18 kg/m Pleasant morbidly obese adult male in no acute distress. Alert and oriented all spheres. Normal affect and cognition. Speech normal. No deficits to learning or comprehension. Skin warm, dry, pink to lips and nailbeds. Normal turgor. Respirations regular and unlabored. No resting shortness of breath or accessory muscle use. Mildly short of breath with walking and getting on and off table. HEENT: NCAT. No scleral icterus or conjunctival injection. TM's clear. Nose and oropharynx free from injection or lesion. Oral membranes moist and pink. No cervical lymph nodes. Thyroid non-tender, no masses, or enlargement. Carotids pulses 2+/4+ without bruits. No JVD with HOB at 30 degrees. Chest is normal shape. No dullness to percussion. Mildly diminished lung sounds in the bases otherwise lungs are clear to all henderson without rales or rhonchi. HRRR without murmur or gallop. Abdomen is morbidly obese causing difficulty for exam, no HJR, no abdominal edema. Extrem: no clubbing or cyanosis. Edema: Mid calf to foot with 2+ out of 4 pitting edema. Extremities are warm and pink with prompt capillary refill. Dorsal pedal pulses 2 out of 4 plus., Capillary refill. Mildly thick nails. 12 lead ECG: no significant change from 05/18/2023, NSR 1 degree AVB, LAFB pending fundraising specialist review. ASSESSMENT/PLAN: 1. SOB (shortness of breath) - ICD9: 786.05, ICD10: R06.02 (primary diagnosis) Suspect r/t body habitus and deconditioning, chronic lung disease In no acute distress. No chest pain or evidence of DVT. EKG stable Due to sudden weight gain will trial lasix 40mg daily x 5 days with weight onb 5th day to be reported through [facility]- daughter will see this gets completed If chest pain, worsening SOB, feeling worse:go to ER Will send note to [facility] for continuity of care. - COMPLETE BLOOD COUNT AND DIFFERENTIAL - COMPREHENSIVE METABOLIC PANEL - NT PRO BNP - ECG COMPLETE - XR CHEST 2V FRONTAL/LAT - THYROID STIMULATING HORMONE 2. Bilateral leg edema - ICD9: 782.3, ICD10: R60.0 As above, possibly stasis has has been sitting for hours with legs down - COMPLETE BLOOD COUNT AND DIFFERENTIAL - COMPREHENSIVE METABOLIC PANEL - NT PRO BNP - ECG COMPLETE - XR CHEST 2V FRONTAL/LAT - THYROID STIMULATING HORMONE 3. Weight increase - ICD9: 783.1, ICD10: R63.5 As above - COMPLETE BLOOD COUNT AND DIFFERENTIAL - COMPREHENSIVE METABOLIC PANEL - NT PRO BNP - ECG COMPLETE - XR CHEST 2V FRONTAL/LAT - THYROID STIMULATING HORMONE Will notify when labs are completed. 40 minute visit, 15 minutes in face to face counseling, education, and question answering Some of this note may have been copied and pasted for the purpose of history context and comparison. All questions listed were asked and adjusted for changes in prior data. Osvaldo Travis PA-C documented in this encounter [facility] 02-04-2024 Telephone encounter Note Daughter reports patient has swelling in jabari feet/ankles for 3 days, and never has swelling. No idea what is causing it- pt does eat salt b/c he has low sodium for about a year. Protocol recommends see provider in 4 hours. Patient agreeable. Appt scheduled. Reason for Disposition Swelling of both ankles (i.e., pedal edema) [1] Thigh, calf, or ankle swelling AND [2] bilateral AND [3] 1 side is more swollen Answer Assessment - Initial Assessment Questions 1. LOCATION: Jabari ankle and pedal edema. L > R. Top where toes are leaves a dent when pushed in. 2. ONSET: 3 days ago 3. SWELLING: Moderate. Limping. Limps on right side b/c right hip arthritis. 4. PAIN: No pain just tightness. 5. CAUSE: No idea. Patient eats salt b/c he has low sodium for about a year. 6. OTHER SYMPTOMS: No other symptoms. Hx afib- in control with medication- can tell when it's acting up and it's not acting up right now, restrictive lung disease. 7. : N/A Protocols used: Ankle Dupyzoym-OXVBC-AA, Leg Swelling and Yeyxt-[id number]-HP [facility] 02-04-2024 Miscellaneous Notes Daughter reports patient has swelling in jabari feet/ankles for 3 days, and never has swelling. No idea what is causing it- pt does eat salt b/c he has low sodium for about a year. Protocol recommends see provider in 4 hours. Patient agreeable. Appt scheduled. Reason for Disposition Swelling of both ankles (i.e., pedal edema) [1] Thigh, calf, or ankle swelling AND [2] bilateral AND [3] 1 side is more swollen Answer Assessment - Initial Assessment Questions 1. LOCATION: Jabari ankle and pedal edema. L > R. Top where toes are leaves a dent when pushed in. 2. ONSET: 3 days ago 3. SWELLING: Moderate. Limping. Limps on right side b/c right hip arthritis. 4. PAIN: No pain just tightness. 5. CAUSE: No idea. Patient eats salt b/c he has low sodium for about a year. 6. OTHER SYMPTOMS: No other symptoms. Hx afib- in control with medication- can tell when it's acting up and it's not acting up right now, restrictive lung disease. 7. : N/A Protocols used: Ankle Gfdronby-TFRXP-JE, Leg Swelling and Ifytl-VQJXA-NX documented in this encounter [facility] 01-18-2024 Telephone encounter Note Patient has been identified by name and date of : Yes Patient phones for refill(s): Requested Prescriptions Pending Prescriptions Disp Refills albuterol HFA (VENTOLIN HFA) 90 mcg/actuation inhaler 1 Each 1 Sig: Inhale 2 Puffs as instructed every 4 hours as needed. Date of last office visit in primary care: 12/25/2023 Date of next office visit in primary care: 06/20/2024 Please advise. Thank you. Christian Bob LPN. [facility] 01-18-2024 Miscellaneous Notes Patient has been identified by name and date of : Yes Patient phones for refill(s): Requested Prescriptions Pending Prescriptions Disp Refills albuterol HFA (VENTOLIN HFA) 90 mcg/actuation inhaler 1 Each 1 Sig: Inhale 2 Puffs as instructed every 4 hours as needed. Date of last office visit in primary care: 12/25/2023 Date of next office visit in primary care: 06/20/2024 Please advise. Thank you. Christian Bob LPN. documented in this encounter [facility] 01-09-2024 Miscellaneous Notes Patient phones requesting refills as follows: Requested Prescriptions Pending Prescriptions Disp Refills ELIQUIS 5 mg tab(s) 60 tablet 1 Sig: Take 1 tablet by mouth two times a day. Please review and advise. Renetta Gant MA documented in this encounter [facility] 01-09-2024 Telephone encounter Note Patient phones requesting refills as follows: Requested Prescriptions Pending Prescriptions Disp Refills ELIQUIS 5 mg tab(s) 60 tablet 1 Sig: Take 1 tablet by mouth two times a day. Please review and advise. Renetta Gant MA [facility] 01-01-2024 Miscellaneous Notes See letter. documented in this encounter [facility] 01-01-2024 Miscellaneous Notes See other note Daughter, Loan, reports she spoke with [employer] insurance, who informed her pcp would need to write a Prior Auth letter stating condition and diagnoses, and specify patient needs a lite weight, and [facility] fax # [phone]. [employer] would then decide if they will cover it. Please phone Loan with any questions. documented in this encounter [facility] 12-31-2023 Miscellaneous Notes Printed. See MyChart message needs it to be for this scooter please. documented in this encounter [facility] 12-25-2023 Miscellaneous Notes Addended by: JEFF VIRGEN on: 12/25/2023 02:15 PM Modules accepted: Orders documented in this encounter [facility] 12-25-2023 Note HNO ID: [id number] Author: JEFF VIRGEN MD Service: ? Author Type: Physician Type: Progress Notes Filed: 12/25/2023 14:15 Note Text: Wants scooter. Uses a walker. Does not have a walker. Wants a scooter to use groceries. Daughter says they they will cover it for that. [facility] 12-25-2023 History of Presen t illness Narrative Wants scooter. Uses a walker. Does not have a walker. Wants a scooter to use groceries. Daughter says they they will cover it for that. Patient presents with: F/U 6 months HPI: Patient presents today for office visit for follow up. Still with hip pain. Has psoriatic arthritis. Was using oral ibu. Advised to avoid oral antiinflammatories. Rec rheum vs ortho vs therapy. Declines all of them. Bp is good. No chest pain No new shortness of breath. Has seen pulmonary. Sugars are up but he had decreased his humalog when he should not have to avoid lows. It is still 8 which is probably ok given his age. Sugars are doing better since have adjusted meds. Still seeing cardiology. No bleeding or bruising issues. See previous ov: HTN: Patient is compliant with meds Yes [...] fever or chills. No cough. No dizziness. Latest Ref [facility] 11/28/2023 WBC 3.70 - 11.00 k/uL 10.24 RBC 4.20 - 6.00 m/uL 5.01 Hemoglobin 13.0 - 17.0 g/dL 14.1 Hematocrit 39.0 - 51.0 % 43.7 MCV 80.0 - 100.0 fL 87.2 MCH 26.0 - 34.0 pg 28.1 MCHC 30.5 - 36.0 g/dL 32.3 RDW-CV 11.5 - 15.0 % 13.9 Platelet Count 150 - 400 k/uL 280 MPV 9.0 - 12.7 fL 11.3 Neut% % 61.9 Abs Neut (ANC) 1.45 - 7.50 k/uL 6.34 Lymph% % 22.6 Abs Lymph 1.00 - 4.00 k/uL 2.31 Shannon% % 11.1 Abs Shannon <0.87 k/uL 1.14 (H) Eosin% % 3.4 Abs Eosin <0.46 k/uL 0.35 Baso% % 0.5 Abs Baso <0.11 k/uL 0.05 Immature Gran % % 0.5 IMMATURE GRANS (ABS) <0.10 k/uL 0.05 NRBC /100 WBC 0.0 Absolute nRBC <0.01 k/uL <0.01 DTYPE Auto Glucose 74 - 99 mg/dL 117 (H) BUN 9 - 24 mg/dL 25 (H) Creatinine 0.73 - 1.22 mg/dL 1.06 Sodium 136 - 144 mmol/L 135 (L) Potassium 3.7 - 5.1 mmol/L 4.3 Chloride 97 - 105 mmol/L 100 CO2 22 - 30 mmol/L 24 Anion Gap 9 - 18 mmol/L 11 Calcium 8.5 - 10.2 mg/dL 9.8 eGFR >=60 mL/min/1.73m 71 Cholesterol, Total <200 mg/dL 118 Triglyceride <150 mg/dL 131 HDL Cholesterol >39 mg/dL 37 (L) Non HDL Cholesterol <130 mg/dL 81 Fasting Time hrs 12 VLDL Cholesterol <30 mg/dL 26 TC:HDL Ratio <5.10 3.19 LDL Cholesterol <100 mg/dL 55 LDL:HDL Ratio <2.54 1.49 Creatinine, Ur Random (UCRR) 20.0 - 300.0 mg/dL 61.6 Albumin, Urine Random mg/L <12.0 Albumin/Creat Ratio <30 mg/g <19 Hemoglobin A1C 4.3 - 5.6 % 8.0 (H) Estimated Average Glucose mg/dL 183 Legend: (H) High (L) Low MEDICATIONS: Current Outpatient Medications Medication Sig ELIQUIS 5 mg tab(s) Take 1 tablet by mouth two times a day. dilTIAZem CD (CARDIZEM CD, CARTIA XT) 120 mg 24 hr capsule Take 1 capsule by mouth once daily. losartan-hydroCHLOROthiazide (HYZAAR) 100-12.5 mg per tablet Take 1 tablet by mouth once daily. spironolactone (ALDACTONE) 25 mg tablet Take 1 tablet by mouth once daily. carvedilol (COREG) 25 mg tablet Take 1 tablet by mouth two times a day. metFORMIN ER (GLUCOPHAGE XR) 500 mg 24 hr tablet Take 2 tablets by mouth two times a day before meals. simvastatin (ZOCOR) 40 mg tablet Take 1 tablet by mouth daily at bedtime. albuterol HFA (VENTOLIN HFA) 90 mcg/actuation inhaler Inhale 2 Puffs as instructed every 4 hours as needed. colestipol (COLESTID) 1 gram tablet Take 1 tablet by mouth once daily. insulin lispro (HUMALOG KWIKPEN INSULIN) 100 unit/mL Inject 22 Units subcutaneously three times daily before meals. Getting through [facility] (Patient taking differently: Inject 26 Units subcutaneously three times a day before meals. Getting through [facility]) insulin glargine (BASAGLAR KWIKPEN U-100 INSULIN) 100 unit/mL (3 mL) Inject 90 Units subcutaneously daily at bedtime. finasteride (PROSCAR) 5 mg [...] twice daily. Accucheck compact test strips, dx-NIDDM flecainide (TAMBOCOR) 150 mg tablet Take 1 tablet by mouth every 12 hours. Prescribed by outside fundraising specialist No current facility-administered medications for this visit. [...] and social history today. REVIEW OF SYSTEMS No issues with urine or bowels Saw optho recently. All other reviewed and negative other than HPI. HEALTH MAINTENANCE: Reviewed health maintenance issues today and recommended the following in detail. Covid-19 Vaccine( season) Never done Advance Directive Discussion due on 09/17/2023 Behavioral Health Screening Never done VITALS: BP 122/80 (BP Site: Left Arm, BP Position: Sitting, BP Cuff Size: Regular Adult) Pulse 73 Resp 18 Wt 130.2 kg (287 lb) SpO2 96% BMI 37.87 kg/m Last 4 Encounter Wt Readings: Date: Wt: 12/25/2023 130.2 kg (287 lb) 09/06/2023 132.4 kg (291 lb 12.8 oz) 06/09/2023 132.5 kg (292 lb) 06/06/2023 134.2 kg (295 lb 12.8 oz) PHYSICAL EXAMINATION: General appearance: Well appearing, [...] Musculoskeletal: No joint swelling, deformity, or tenderness ASSESSMENT/PLAN: 1. Paroxysmal atrial fibrillation (HCC) - ICD9: 427.31, ICD10: I48.0 (primary diagnosis) - doing well. Avoid ibu while on meds. See cardiology. 2. Essential hypertension - ICD9: 401.9, ICD10: I10 - Controlled - Continue current medications 3. Mixed hyperlipidemia - ICD9: 272.2, ICD10: E78.2 - Controlled - Continue current medications 4. Sleep apnea, unspecified type - ICD9: 780.57, ICD10: G47.30 - declines testing. 5. Restrictive lung disease - ICD9: 518.89, ICD10: J98.4 - has seen pulmonary, ? Related to build. 6. 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 Follow labs 7. Schizophrenia, chronic condition (HCC) - ICD9: 295.62, ICD10: F20.9 - stable. 8. Obesity, Class II, BMI 35-39.9 - ICD9: 278.00, ICD10: E66.9 - watch diet. 9. Chronic anticoagulation - ICD9: V58.61, ICD10: Z79.01 - avoid nsaids. 10. Pain of right hip - ICD9: 719.45, ICD10: M25.551 - Discussed risks and benefits of new medication with the patient. Advised them to call if any side effects or questions. - DICLOFENAC 1 % TOPICAL GEL 11. Psoriatic arthritis (HCC) - ICD9: 696.0, ICD10: L40.50 -as above. - DICLOFENAC 1 % TOPICAL GEL - COMP METABOLIC PANEL 12. Type 2 diabetes mellitus without complication, with long-term current use of insulin (HCC) - ICD9: 250.00, V58.67, ICD10: E11.9, Z79.4 - INSULIN LISPRO (U-100) 100 UNIT/ML SUBCUTANEOUS PEN - HGB A1C Jeff Virgen MD RTO in six months or prn documented in this encounter [facility] 12-25-2023 Note HNO ID: [id number] Author: JEFF VIRGEN MD Service: ? Author Type: Physician Type: Progress Notes Filed: 12/25/2023 14:10 Note Text: Patient presents with: F/U 6 months HPI: Patient presents today for office visit for follow up. Still with hip pain. Has psoriatic arthritis. Was using oral ibu. Advised to avoid oral antiinflammatories. Rec rheum vs ortho vs therapy. Declines all of them. Bp is good. No chest pain No new shortness of breath. Has seen pulmonary. Sugars are up but he had decreased his humalog when he should not have to avoid lows. It is still 8 which is probably ok given his age. Sugars are doing better since have adjusted meds. Still seeing cardiology. No bleeding or bruising issues. See previous ov: HTN: Patient is compliant with meds Yes [...] fever or chills. No cough. No dizziness. Latest Ref [facility] 11/28/2023 WBC 3.70 - 11.00 k/uL 10.24 RBC 4.20 - 6.00 m/uL 5.01 Hemoglobin 13.0 - 17.0 g/dL 14.1 Hematocrit 39.0 - 51.0 % 43.7 MCV 80.0 - 100.0 fL 87.2 MCH 26.0 - 34.0 pg 28.1 MCHC 30.5 - 36.0 g/dL 32.3 RDW-CV 11.5 - 15.0 % 13.9 Platelet Count 150 - 400 k/uL 280 MPV 9.0 - 12.7 fL 11.3 Neut% % 61.9 Abs Neut (ANC) 1.45 - 7.50 k/uL 6.34 Lymph% % 22.6 Abs Lymph 1.00 - 4.00 k/uL 2.31 Shannon% % 11.1 Abs Shannon <0.87 k/uL 1.14 (H) Eosin% % 3.4 Abs Eosin <0.46 k/uL 0.35 Baso% % 0.5 Abs Baso <0.11 k/uL 0.05 Immature Gran % % 0.5 IMMATURE GRANS (ABS) <0.10 k/uL 0.05 NRBC /100 WBC 0.0 Absolute nRBC <0.01 k/uL <0.01 DTYPE Auto Glucose 74 - 99 mg/dL 117 (H) BUN 9 - 24 mg/dL 25 (H) Creatinine 0.73 - 1.22 mg/dL 1.06 Sodium 136 - 144 mmol/L 135 (L) Potassium 3.7 - 5.1 mmol/L 4.3 Chloride 97 - 105 mmol/L 100 CO2 22 - 30 mmol/L 24 Anion Gap 9 - 18 mmol/L 11 Calcium 8.5 - 10.2 mg/dL 9.8 eGFR >=60 mL/min/1.73m? 71 Cholesterol, Total <200 mg/dL 118 Triglyceride <150 mg/dL 131 HDL Cholesterol >39 mg/dL 37 (L) Non HDL Cholesterol <130 mg/dL 81 Fasting Time hrs 12 VLDL Cholesterol <30 mg/dL 26 TC:HDL Ratio <5.10 3.19 LDL Cholesterol <100 mg/dL 55 LDL:HDL Ratio <2.54 1.49 Creatinine, Ur Random (UCRR) 20.0 - 300.0 mg/dL 61.6 Albumin, Urine Random mg/L <12.0 Albumin/Creat Ratio <30 mg/g <19 Hemoglobin A1C 4.3 - 5.6 % 8.0 (H) Estimated Average Glucose mg/dL 183 Legend: (H) High (L) Low MEDICATIONS: Current Outpatient Medications Medication Sig ELIQUIS 5 mg tab(s) Take 1 tablet by mouth two times a day. dilTIAZem CD (CARDIZEM CD, CARTIA XT) 120 mg 24 hr capsule Take 1 capsule by mouth once daily. losartan-hydroCHLOROthiazide (HYZAAR) 100-12.5 mg per tablet Take 1 tablet by mouth once daily. spironolactone (ALDACTONE) 25 mg tablet Take 1 tablet by mouth once daily. carvedilol (COREG) 25 mg tablet Take 1 tablet by mouth two times a day. metFORMIN ER (GLUCOPHAGE XR) 500 mg 24 hr tablet Take 2 tablets by mouth two times a day before meals. simvastatin (ZOCOR) 40 mg tablet Take 1 tablet by mouth daily at bedtime. albuterol HFA (VENTOLIN HFA) 90 mcg/actuation inhaler Inhale 2 Puffs as instructed every 4 hours as needed. colestipol (COLESTID) 1 gram tablet Take 1 tablet by mouth once daily. insulin lispro (HUMALOG KWIKPEN INSULIN) 100 unit/mL Inject 22 Units subcutaneously three times daily before meals. Getting through [facility] (Patient taking differently: Inject 26 Units subcutaneously three times a day before meals. Getting through [facility]) insulin glargine (BASAGLAR KWIKPEN U-100 INSULIN) 100 unit/mL (3 mL) Inject 90 Units subcutaneously daily at bedtime. finasteride (PROSCAR) 5 mg [...] twice daily. Accucheck compact test strips, dx-NIDDM flecainide (TAMBOCOR) 150 mg tablet Take 1 tablet by mouth every 12 hours. Prescribed by outside fundraising specialist No cu (more content not included)... [facility] 11-15-2023 Miscellaneous Notes Ordered. Patient daughter Loan calling asking to have order for Albumin Creat urine put in computer for her father to complete on 11/28/2023 when he comes in to get his lab work done. Pending order to file. Please advise documented in this encounter [facility] 11-14-2023 Miscellaneous Notes Phoned patient daughter Loan went over notes below from Prosper KIRKPATRICK and aware rx sent to pharmacy. It was d/c'd on 09/06/2023 by Bibiana Cheung CNP, not clear why. The following approved medication requests have been transmitted electronically. Requested Prescriptions Signed Prescriptions Disp Refills dilTIAZem CD (CARDIZEM CD, CARTIA XT) 120 mg 24 hr capsule 90 capsule 3 Sig: Take 1 capsule by mouth once daily. Authorizing Provider: Osvaldo TRAVIS PA-C Pt's daughter Loan Brooks calling in regarding Cartia XT 120mg. Med no longer on med list & it looks like med was d/c'd on 09/06/24. Loan states pt is still taking it & wonders if he is suppose to be taking it? If he is, he will need a refill. Pt has 6 tabs left, he will be out of meds before pcp returns to office. Please advise. Pt uses [facility] in [place]. Julia Chilel LPN documented in this encounter [facility] 11-14-2023 Miscellaneous Notes Patient daughter Loan calling father has one pill left and wanted to make sure request was taken care of today. She said father is not getting the medication free any longer asking for 30 day rx. Aware PCP is out of the office. Please advise Patient has been identified by name and date of : daughter phones for refill(s): Requested Prescriptions Pending Prescriptions Disp Refills ELIQUIS 5 mg tab(s) 60 tablet Sig: Take 1 tablet by mouth two times a day. Date of last office visit in primary care: 09/06/2023 Date of next office visit in primary care: 12/05/2023 Please advise. Thank you. Tammy Davies LPN. documented in this encounter [facility] 11-02-2023 Miscellaneous Notes Patient has been identified by name and date of : Yes Requested Prescriptions Pending Prescriptions Disp Refills losartan-hydroCHLOROthiazide (HYZAAR) 100-12.5 mg per tablet 90 tablet 1 Sig: Take 1 tablet by mouth once daily. RX INSTRUCTIONS: Patient aware RX will be sent to pharmacy. No need to notify patient. [facility] 06/06/23 Scheduled 12/05/23 Anthony Henley LPN documented in this encounter [facility] 10-13-2023 Miscellaneous Notes Patient has been identified by name and date of : Yes, Provider Jeff Virgen MD Date October 13, 2023 Time now Patient phones for refill(s): Requested Prescriptions Pending Prescriptions Disp Refills spironolactone (ALDACTONE) 25 mg tablet 90 tablet 1 Sig: Take 1 tablet by mouth once daily. Date of last office visit in primary care: 09/06/23 Date of next office visit in primary care: 12/05/23 Please advise. Thank you. Miley Pemberton Ma. documented in this encounter [facility] 09-06-2023 Note HNO ID: [id number] Author: Hellen Lynch RT(R) Service: ? Author Type: Manager Animal Type: Progress Notes Filed: 09/06/2023 3:28 PM [...] RT Margarita(R) September 06, 2023 3:17 PM [facility] 09-06-2023 Note HNO ID: [id number] Author: Anum Cheung APRN.PECAN SHELLER Service: ? Author Type: Nurse Practitioner Type: [...] mouth every 12 hours. Prescribed by outside fundraising specialist famotidine (PEPCID) 20 mg tablet Take 1 [...] 22 Units subcutane (more content not included)... [facility] 09-06-2023 Miscellaneous Notes Reason for Disposition [1] [...] last month. Protocols used: Cough - Acute [id number] documented in this encounter [facility] 08-27-2023 Miscellaneous Notes Patient phones requesting refills as follows: Requested Prescriptions Pending Prescriptions Disp Refills simvastatin (ZOCOR) 40 mg tablet 90 tablet 3 Sig: Take 1 tablet by mouth daily at bedtime. [facility] 07/23/23 NOV 12/05/23 Please review and advise. Christian Bob documented in this encounter [facility] 08-07-2023 Miscellaneous Notes Forms completed and signed and faxed back to [place] at [phone]. Patient informed. Lulu Cleary Type of form: Patient Assistance. [place] [facility] Form received via walk in When form is completed, Fax form to number on form. Form has been forwarded to Physician Desk: Dr. Virgen. Lulu Cleary documented in this encounter [facility] 07-23-2023 History of Presen t illness Narrative Radiology Service Progress Note PATIENT NAME: Faisal [...] PERIPHERAL IV DATA: Not applicable SIGNED BY: MIKE Villalobos) July 23, 2023 2:55 PM documented in this encounter [facility] 07-23-2023 Note HNO ID: [id number] Author: Kameron Arrington RT(R) Service: Radiology Author Type: Technologist [...] PERIPHERAL IV DATA: Not applicable SIGNED BY: Kameron Arrington, RT(R) July 23, 2023 2:55 PM [facility] 07-23-2023 Note HNO ID: [id number] Author: Jarvis Nicole MD Service: ? Author [...] pain described as intermittent light throbbing, currently 09/26. Radiating pain described as a light shock. [...] mouth every 12 hours. Prescribed by outside fundraising specialist famotidine (PEPCID) 20 mg tablet Take 1 [...] three times daily before meals. Getting through [facility] metFORMIN ER (GLUCOPHAGE XR) 500 mg 24 [...] Yes COMPOUNDED PRESCRIPTION 1 Each twice daily. AccuchIdea Device compact test strips, dx-NIDDM senna (SENOKOT) 8.6 [...] and extension, good (more content not included)... [facility] 07-23-2023 History of Presen t illness Narrative [...] pain described as intermittent light throbbing, currently 09/26. Radiating pain described as a light shock. [...] mouth every 12 hours. Prescribed by outside fundraising specialist famotidine (PEPCID) 20 mg tablet Take 1 [...] times daily before meals. Getting through [facility] metFORMIN ER (GLUCOPHAGE XR) 500 mg 24 [...] Jarvis Nicole MD documented in this encounter [facility] 07-13-2023 Miscellaneous Notes Notified that will place in medical records for shredder picker. Can shredder picker starting tomorrow 07/14/23. Printed. Received notification that patient will be due for re-enrollment for the [facility] patient assistance programs of Humalog and Basaglar starting 09/17/23. Call to daughter and advised her of this. She will start the process and get it to us. She is asking for a handicap placard to be completed for pt. Once done, call her for shredder picker. Janet King Ma documented in this encounter [facility] 06-19-2023 Miscellaneous Notes Patient has been identified [...] Jackelin Tinajero RN documented in this encounter [facility] 06-09-2023 History of Presen t illness [...] three times daily before meals. Getting through [facility] metFORMIN ER (GLUCOPHAGE XR) 500 mg 24 [...] mouth every 12 hours. Prescribed by outside fundraising specialist aspirin 81 mg chewable tablet Take 81 [...] Jarvis Nicole MD documented in this encounter [facility] 06-09-2023 Miscellaneous Notes Reason for Call: Cough, [...] last 30 days. Protocols used: Influenza - [id number] documented in this encounter [facility] 06-07-2023 Miscellaneous Notes Patient has been identified [...] Kennedi Frey LPN documented in this encounter [facility] 06-06-2023 History of Past i llness Narrative Problem Noted Date Diagnosed Date Resolved Date [...] of this encounter (statuses as of 06/06/2023) [facility] Narrative* Problem Noted [...] of this encounter (statuses as of 06/08/2023) [facility] Narrative* Problem Noted [...] of this encounter (statuses as of 06/09/2023) [facility] Narrative* Problem Noted [...] of this encounter (statuses as of 06/09/2023) [facility] Narrative* Problem Noted [...] of this encounter (statuses as of 06/21/2023) [facility] Narrative* Problem Noted [...] of this encounter (statuses as of 07/13/2023) [facility] Narrative* Problem Noted [...] of this encounter (statuses as of 07/24/2023) [facility] Narrative* Problem Noted [...] of this encounter (statuses as of 08/08/2023) [facility] N[facility]ative* Problem Noted [...] of this encounter (statuses as of 08/29/2023) [facility] N[facility]ative* Problem Noted [...] of this encounter (statuses as of 09/07/2023) [facility] Narrative* Problem Noted [...] as of this encounter (statuses as of 10/14/2023) [facility] N[facility]* Problem Noted [...] as of this encounter (statuses as of 11/02/2023) [facility] Narrative* Problem Noted Date Diagnosed Date Resolved Date Acute cholecystitis 06/06/2023 06/06/2023 06/06/20 23 Acute respiratory failure 06/06/2023 06/06/2023 History of atrial fibrillation 06/06/2023 06/06/202306/0606/06/2023 Left lower lobe pneumonia 06/06/2023 06/06/2023 Mild [...] as of this encounter (statuses as of 11/15/2023) [facility] Narrative* Problem Noted [...] as of this encounter (statuses as of 11/15/2023) [facility] Narrative* Problem Noted [...] as of this encounter (statuses as of 12/26/2023) [facility] Narrative* Problem Noted [...] as of this encounter (statuses as of 01/01/2024) [facility] N[facility]ative* Problem Noted [...] as of this encounter (statuses as of 01/02/2024) [facility] N[facility]ative* Problem Noted [...] as of this encounter (statuses as of 01/02/2024) [facility] of Present [facility] Narrative* Jeff [...] Abs Lymph 1.00 - 4.00 k/uL 1.48 Shannon% % 9.5 Abs Shannon <0.87 k/uL 1.16 (H) Eosin% % 1.7 [...] Ketones, Urine Trace, Negative Negative Negative Specific [place], Ur 1.005 - 1.030 1.022 1.022 Hemoglobin/Blood,Ur [...] three times daily before meals. Getting through [facility] losartan-hydroCHLOROthiazide (HYZAAR) 100-12.5 mg per tablet Take [...] mouth every 12 hours. Prescribed by outside fundraising specialist aspirin 81 mg chewable tablet Take 81 [...] I48.0 - stable. Stay on meds. See [place] [facility] in the winter again. 4. [...] cough. Jeff Virgen MD [facility] Miscellaneous Notes* Telephone Encounter - Angelina Bliss RN - 06/04/2023 2:00 PM EDT Daughter Loan returned call and given provider's message below. Angelina Bliss RN * Telephone Encounter - Anthony Henley LPN - 06/04/2023 11:57 AM EDT [...] advise. Kristina Higuera LPN documented [facility] Instructions* Patient Instructions* Osvaldo Travis PA-C - 05/18/2023 4:12 PM EDT Please push fluids with water, non-caffeinated and non-alcoholic beverages, 6-8 glasses today. If you feel weak, faint, or have chest pain, call 911 and have the squad take you to ER. Try to stay cool for the next few days and rest. documented in this [facility] History of Present illness Narrative* Osvaldo Travis [...] times daily before meals. Getting through [facility] 5 Each 1 losartan-hydroCHLOROthiazide (HYZAAR) 100-12.5 [...] mouth every 12 hours. Prescribed by outside fundraising specialist aspirin 81 mg chewable tablet Take 81 [...] a chair. Negative Romberg. No past-pointing, normal [id number]. Seems stiff which I think is affecting his gait. EKG demonstrates normal sinus rhythm with first-degree AV block with TN of 222 MS, otherwise metrics are normal. 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 There is no change from prior EKG 03/01/2023 online under [facility]: I was able to download and will [...] there. Osvaldo Travis PA-C documented in this [facility]23 Miscellaneous Notes* Telephone Encounter - Jeff Virgen [...] and advise. Gin Khan documented in this [facility]08-25-2023 Miscellaneous Notes* Telephone Encounter - Anthony Henley LPN - 05/11/2023 3:48 PM EDT Forms completed and faxed. * Telephone Encounter - Anthony Henley LPN - 05/11/2023 3:08 PM EDT Type of form: Prescription Assistance Form received via walk in When form is completed, Fax form to [phone] Form has been forwarded to Physician Desk: Dr. Marilynn Henley LPN documented in this [facility]08-15-2023 History of Present illness Narrative* Osvaldo Travis PA-C - 05/01/2023 3:24 PM EDT Here to review bleeding area from largest skin tag removal yesterday. No areas bleeding on exam. Instructed if bleeding, hold pressure solidly for 5 minutes and recheck. BP 118/70 Pulse 80 Temp 36.6 C (97.9 F) (Left Tympanic) Resp 20 SpO2 96% Osvaldo Travis PA-C documented in this [facility]-14-2023 Instructions* Patient Instructions* Osvaldo Travis PA-C [...] recheck in three weeks. documented in this encounter[facility]08-[facility]23 History of Present illness Narrative* Osvaldo Travis [...] three times daily before meals. Getting through [employer] 5 Each 1 ELIQUIS 5 mg tab(s) [...] mouth every 12 hours. Prescribed by outside fundraising specialist aspirin 81 mg chewable tablet Take 81 [...] appointment Osvaldo Travis PA-C documented in this [facility]23 Miscellaneous Notes* Telephone Encounter - Shaye Schafer [...] Thank you. MANDI Santos documented in this encounterDo[facility]07-[facility]-2023 Miscellaneous Notes* Telephone Encounter - Denisha Shepard APRN.CNP - 03/22/2023 12:48 PM EDT This encounter was opened in error. documented in this encounterDo[facility]06-19-2023 Instructions* Patient Instructions* Andrew Guallpa APRN.CNP - 03/05/2023 3:37 PM EDT Constipation Constipation [...] more? National Digestive Diseases Information Clearinghouse2 Information [place], [place] [address] www.digestive.niddk.nih.gov email: References: National Digestive Diseases Information Clearinghouse. Constipation. digestive.niddk.nih.gov Accessed June 21, 2012. [employer]. Understanding Constipation. www.gastro.org. Accessed June 21, 2012. Copyright 7084-0346 The [facility]. All rights reserved This information is provided by the [facility] and is not intended to replace the medical advice of your doctor or health care provider. Please consult your health care provider for advice about a specific medical condition. For additional health information, please contact the Center for Consumer Health Information at the [facility] or toll-free extension [phone]. If you prefer, you may visit [email or web address] or [email or web address]. This document was last reviewed on: 2012 index #4055 documented in this encounterDo[facility]06-[facility]-2023 History of Present illness Narrative* Andrew Guallpa [...] mouth every 12 hours. Prescribed by outside fundraising specialist aspirin 81 mg chewable tablet Take 81 [...] of care. This note was generated using localbacon software. It may contain errors in wording, punctuation, or spelling. Andrew Guallpa APRN.CAESAR documented in this encounterDo[facility] Hospital06-16-2023 History of Present illness Narrative* Jeff Virgen MD - 03/02/2023 4:21 PM EDT Patient presents with: ED Follow-up HPI: Patient presents today for office visit for ER follow up. HOSPITAL/ER FOLLOW UP: Reason for visit: 02/26/23 hypoglycemia (40) 03/01/23 abd pain and nausea Which facility: [facility] Diagnosis: mild dehydration, abd pain Testing [...] daily before meals. Getting through [facility] ELIQUIS 5 mg tab(s) Take 1 tablet [...] mouth every 12 hours. Prescribed by outside fundraising specialist aspirin 81 mg chewable tablet Take 81 [...] UROLOGY Jeff Virgen MD documented in this encounterDoctors Hospital06-08-2023 Miscellaneous Notes* Telephone Encounter - Tammy Davies [...] daily?If so will need new rx to [facility] pharmacy. Please advise documented in this encounterDoctors Hospital06-02-2023 Miscellaneous Notes* Telephone Encounter - Janet King Ma - 02/16/2023 4:16 PM EDT Patient was made aware of the results. Patient verbalizes understanding. Janet King Ma * Telephone Encounter - Denisha Shepard APRN.CAESAR - 02/16/2023 3:54 PM EDT Can please [...] repeated in 10-14 days. documented in this encounterDoctors Hospital06-02-2023 Instructions* Patient Instructions* Denisha Shepard APRN.CNP - 02/16/2023 3:08 PM EDT Tim wrap. Rest Ice Prop the foot. Tylenol as needed. documented in this encounterDoctors Hospital06-02-2023 History of Present illness Narrative* Denisha Shepard [...] mouth every 12 hours. Prescribed by outside fundraising specialist aspirin 81 mg chewable tablet Take 81 [...] as needed for worsening/no improvement. Denisha Shepard APRN.CAESAR The patient indicates understanding of these issues and agrees with the plan. documented in this encounterDoctors Hospital05-31-2023 Nurse Note* Michelle Jara RN - 02/14/2023 [...] well. Michelle Jara RN documented in this encounterDo[facility] Hospital05-05-2023 History of Present illness Narrative* Jeff Virgen [...] times daily before meals. Getting through [facility] ELIQUIS 5 mg tab(s) Take 1 [...] mouth every 12 hours. Prescribed by outside fundraising specialist aspirin 81 mg chewable tablet Take 81 [...] SURGERY Jeff Virgen MD documented in this encounterDoctors Hospital03-15-2023 History of Present illness Narrative* Jeff Virgen MD - 11/29/2022 9:33 AM EDT Patient presents with: Transition Of Care HPI: Patient presents today for office visit for hospital follow up. Seen in [facility] on 11/21/22. Discharged 11/21/22 Chest pain. [...] note: TRANSITION CARE MANAGEMENT (TCM) INITIAL CONTACT [employer] Extension Agent Outreach Provider Action/FYI: -pt admitted to [facility] on 11/21/22 for 24hr observation d/t [...] Abs Lymph 1.00 - 4.00 k/uL 1.95 Shannon% % 9.8 Abs Shannon <0.87 k/uL 1.09 (H) Eosin% % 4.1 [...] mouth every 12 hours. Prescribed by outside fundraising specialist aspirin 81 mg chewable tablet Take 81 [...] stable. Jeff Virgen MD documented in this encounterDoctors Hospital03-13-2023 Miscellaneous Notes* Telephone Encounter - Sheila Murcia LPN - 11/27/2022 9:43 AM EDT PATIENT NOTIFIED [...] as the lab orders are in. PH> [phone]. Kennedi Frey LPN * Telephone Encounter - [...] Thank you, Michaelle HERBERT documented in this encounterDoctors Hospital03-08-2023 History of Present illness Narrative* Christian Bob LPN - 11/22/2022 9:23 AM EST TRANSITION CARE MANAGEMENT (TCM) INITIAL CONTACT Marine Extension Agent Outreach Provider Action/FYI: -pt admitted to [facility] on 11/21/22 for 24hr observation d/t [...] flowsheet data found. SUMMARY: -Pt discharged from [facility] on 11/21/22. -Admitted for: Chest Pain Do you have a hospital follow up appointment with your PCP? Appointment on 11/[address] Virgen. Yes. Remind patient of appointment date, time, and location. If not within 14 calendar days of discharge - please reschedule accordingly. Medical records from recent hospitalization: Epic Placed in provider mailbox for further review. documented in this encounterDoctors Hospital02-25-2023 Miscellaneous Notes* Telephone Encounter - Christian Bob LPN - 11/11/2022 10:44 AM EST Patient phones requesting refills as follows: Requested Prescriptions Pending Prescriptions Disp Refills losartan-hydroCHLOROthiazide (HYZAAR) 100-12.5 mg per tablet 90 tablet 1 Sig: Take 1 tablet by mouth once daily. Please review and advise. Christian Bob LPN documented in this encounterDoctors Hospital02-24-2023 Miscellaneous Notes* Telephone Encounter - Gin Herbert [...] advise. Gin Longoria Pss documented in this encounterDoctors Hospital02-09-2023 Miscellaneous Notes* Telephone Encounter - Kaitlyn Hernández [...] refill. Daughter expressed understanding. Kaitlyn Hernández PharmD, [facility] Primary Care Clinical Pharmacist documented in this encounterDoctors Hospital01-30-2023 Miscellaneous Notes* Addendum Note - Kaitlyn Hernández RPh - 10/16/2022 12:50 PM ESTAddended by: KAITLYN HERNÁNDEZ on: 10/16/2022 12:50 PM Modules accepted: Orders * Telephone Encounter - Kaitlyn Hernández RPh - 10/16/2022 12:46 PM EST Daughter returned call, states insurance needs a PA for Basaglar (PharmD reviewed formulary online and Basaglar is not a preferred insulin - Lantus, Toujeo, and Tresiba are). Patient used to be on Lantus. Discussed with daughter - will order Lantus to see what copay is. If affordable, she will shredder picker supply. If not affordable, she will let [...] Will await daughter's call. Kaitlyn Hernández PharmD, [facility] Primary Care Clinical Pharmacist * Telephone Encounter - Kaitlyn Hernández RPh - 10/16/2022 12:24 PM EST Patient's daughter, Loan, called PharmD and LMOM stating patient will be running out of insulin tomorrow, needs another free trial card. Patient has application in for [employer] PAP. She called [employer] this AM, states they still have not [...] of insulin. PharmClovis advised daughter to contact [facility] Espar[facility] and ask them to process the Basaglar [...] to keep me informed. Kaitlyn Hernández PharmD, [facility] Primary Care Clinical Pharmacist documented in this encounterDoctors Hospital01-18-2023 Miscellaneous Notes* Telephone Encounter - Christian Bob LPN - 10/04/2022 9:32 AM EST Patient phones requesting refills as follows: Requested Prescriptions Pending Prescriptions Disp Refills metFORMIN ER (GLUCOPHAGE XR) 500 mg 24 hr tablet 360 tablet 3 Sig: Take 2 tablets by mouth twice daily before meals. ALFA 05/31/22 11/29/22 Please review and advise. Christian Bob LPN documented in this encounterDoctors Hospital01-18-2023 Miscellaneous Notes* Telephone Encounter - Christian Bob LPN - 10/04/2022 9:31 AM EST Patient phones requesting refills as follows: Requested Prescriptions Pending Prescriptions Disp Refills carvedilol (COREG) 25 mg tablet 180 tablet 1 Sig: Take 1 tablet by mouth twice daily. ALFA 05/31/22 11/29/22 Please review and advise. Christian Bob LPN documented in this encounterDoctors Hospital01-13-2023 Miscellaneous Notes* Telephone Encounter - Kaitlyn Edgar, formerly [facility] - 09/29/2022 9:18 AM EST Patient's daughter, Loan, called PharmD and LMOM stating the [employer] [facility] application for insulins was submitted this week [...] spoke with patient's daughter. Sent her a [employer] message with a Basaglar Free Trial Offer. [...] User: KAITLYN HERNÁNDEZ RPh documented in this encounterDoctors Hospital01-10-2023 Miscellaneous Notes* Telephone Encounter - Janet King Ma - 09/26/2022 9:51 AM EST Talked to daughter and advised of time and fax number. Janet King Ma * Telephone Encounter - Anthony Henley LPN - 09/25/2022 8:01 PM EST Sent from [phone] at 8:00pm. (If no error report in [...] give to daughter so she can have [facility] shipped for this week. * Telephone Encounter - Janet King Ma - 09/25/2022 1:08 PM EST Unable to locate forms. Advised daughter. She will reprint forms and fill them out and drop them off today. Janet King Ma * Telephone Encounter - Reanna Greenberg RN - 09/25/2022 10:09 AM EST Patient's daughter oLan states that a month or so ago she had dropped of medications assistance forms for insulins through [employer]. Asking if these were received and fill out? Please fax this [phone]. Please contact Loan back either way. If provider does not have form Loan can come by and drop of other form. Please review and advise, Reanna Greenberg RN documented in this encounterDoctors Hospital12-05-2022 Miscellaneous Notes* Telephone Encounter - Alejandrina Emmanuel Pss - 08/21/2022 3:43 PM EST Patient has been identified by name and date of : Yes Requested Prescriptions Pending Prescriptions Disp Refills simvastatin (ZOCOR) 40 mg tablet 90 tablet 3 Sig: Take 1 tablet by mouth daily at bedtime. RX INSTRUCTIONS: Patient aware RX will be sent to pharmacy. No need to notify patient. Alejandrina Emmanuel Pss documented in this encounterDoctors Hospital11-21-2022 Miscellaneous Notes* Telephone Encounter - Reanna Greenberg RN - 08/07/2022 4:08 PM EST Patient [...] tetanus booster? Unsure Protocols used: Skin Foreign [id number] documented in this encounterDoctors Hospital10-06-2022 Miscellaneous Notes* Telephone Encounter - Kaitlyn Hernández RP - 06/22/2022 11:52 AM EDT PharmD sent request to PAP technicians to assist with j[employer]store application for Jardiance 10mg daily. Kaitlyn Hernández PharmD, [facility] Primary Care Clinical Pharmacist documented in this encounterDoctors Hospital10-06-2022 History of Present illness Narrative* Kaitlyn Hernández formerly [facility] - 06/22/2022 11:00 AM EDT Primary Care Pharmacy Visit CC (Reason for Consult): Diabetes Goal: A1c < 7% Collaborating Provider: Dr. Virgen Last Provider Visit: 05/31/22 Faisal Alracon is a 77 year old male presenting [...] adverse effects DIET/EXERCISE/SOCIAL Hx: Has been eating [employer] food a lot this summer; went to [place] [employer] daily; goes several times per week Fried veggies, sandwiches Breakfast: couple of eggs, 4 pieces muñoz; occasionally will have waffle Lunch: yesterday had small serving mashed potatoes, baked beans, and steak Dinner: usually the same as lunch; occasionally will have salad No exercise MEDICATIONS: Pill bottles are not present Adherence: denies missed doses Pharmacy: [facility] in [place] Rx coverage: [employer] Affordability: Gets Eliquis, Humalog, and Sanofi through [employer] Diabetes supplies: [employer] System: daughter sets up pill box, [...] mouth every 12 hours. Prescribed by outside fundraising specialist insulin glargine (LANTUS SOLOSTAR U-100 INSULIN) 100 [...] verbalized understanding of instructions. Kaitlyn Hernández PharmD, [facility] Primary Care Clinical Pharmacist The majority of the pharmacy visit (> 50%) was spent counseling and/or coordinating care for thepatient. interaction: face to face time was 35 minutes. documented in this encounterDoctors Hospital10-06-2022 Instructions* Patient Instructions* Kaitlyn Hernández RPh - 06/22/2022 11:00 AM EDT START Jardiance 10mg daily. If it is too expensive, let me know. Start to work on your diet. We want all blood sugars to be less than 200 mg/dL. documented in this encounterDoctors Hospital09-14-2022 History of Present illness Narrative* Jeff Virgen [...] Abs Lymph 1.00 - 4.00 k/uL 1.67 Shannon% % 11.8 Abs Shannon <0.87 k/uL 1.20 (H) Eosin% % 3.3 [...] mouth every 12 hours. Prescribed by outside fundraising specialist simvastatin (ZOCOR) 40 mg tablet Take 1 [...] RTO in six month documented in this encounterDoctors Hospital08-22-2022 Miscellaneous Notes* Telephone Encounter - Christian Bob LPN - 05/08/2022 5:59 PM EDT Patient phones requesting refills as follows: Requested Prescriptions Pending Prescriptions Disp Refills losartan-hydroCHLOROthiazide (HYZAAR) 100-12.5 mg per tablet 90 tablet 1 Sig: Take 1 tablet by mouth once daily. ALFA 03/03/22 NOV 05/31/22 Please review and advise. Christian Bob LPN documented in this encounterDoctors Hospital07-23-2022 History of Present illness Narrative* Andrew Guallpa APRN.PECAN SHELLER - 04/08/2022 2:52 PM EDT Subjective HPI [...] mouth every 12 hours. Prescribed by outside fundraising specialist simvastatin (ZOCOR) 40 mg tablet Take 1 [...] care. Andrew Guallpa APRN.CAESAR documented in this encounterDoctors Hospital07-07-2022 Miscellaneous Notes* Telephone Encounter - Kaitlyn Hernández RPh - 03/23/2022 1:22 PM EDT PharmD completed Rx section of [employer] application for Basaglar (to replace Lantus). Full application not required since patient already enrolled and receiving free Humalog. Rx placed on PCP's desk for signature. Kaitlyn Hernández PharmD, [facility] Primary Care Clinical Pharmacist Lisa [facility] documented in this encounterDoctors Hospital07-07-2022 History of Present illness Narrative* Kaitlyn Hernández, formerly [facility] - 03/23/2022 11:00 AM EDT Primary Care [...] Dinner 2 hr PP Bedtime 03/22 170 / 184 03/16 146 178 03/11 162 03/04 [...] Adherence: denies missed doses Pharmacy: [facility] [place] Rx coverage: [employer] Affordability: Gets Eliquis, Humalog, and Sanofi through PAPs Diabetes supplies: [employer] System: daughter sets up pill box, 2 [...] mouth every 12 hours. Prescribed by outside fundraising specialist insulin glargine (LANTUS SOLOSTAR U-100 INSULIN) 100 [...] TG 130 08/16/2021 The ASCVD Risk score (Lucianboaz PÉREZ Jr., et al., 2013) failed to [...] Basaglar so he can get it through [employer] to replace Lantus Applauded on reducing portion [...] BCPS Primary Care Clinical Pharmacist Lisa Souza [facility] The majority of the pharmacy visit (> 50%) was spent counseling and/or coordinating care for thepatient. interaction: face to face time was 35 minutes. documented in this encounterDoctors Hospital07-07-2022 Instructions* Patient Instructions* Kaitlyn Hernández RPh - [...] accurate than wrist cuffs. documented in this encounterDoctors Hospital06-20-2022 Miscellaneous Notes* Telephone Encounter - Jeff Virgen [...] day. Please review and resend to the [facility]. Daughter, Loan, can be reached at [phone] documented in this encounterDoctors Hospital06-20-2022 Miscellaneous Notes* Telephone Encounter - Anthony Henley LPN - 03/06/2022 12:13 PM EDT Patient has been identified by name and date of : Yes Type of form: Prescription Assistance Ashley [employer]ares (humalog kwikpen) Form received via: at visit form was given to Dr Marilynn Virgen completed form When form is completed, fax form to fax number provided. Form has been forwarded to: Nurse and faxed 03/06/22 Anthony Henley LPN documented in this encounterDoctors Hospital06-17-2022 History of Present illness Narrative* Jeff Virgen [...] mouth every 12 hours. Prescribed by outside fundraising specialist Losartan-hydroCHLOROthiazide 100-12.5 mg per tablet Take 1 [...] three months and prn. documented in this encounterDoctors Hospital05-26-2022 Miscellaneous Notes* Telephone Encounter - Anthony Henley LPN - 02/09/2022 11:36 AM EDT [facility] [address] Chart Copy of medications dispensed to patient for home use February 09, 2022 Physician Initial: MIRANDA Alarcon Medication: Lantus Qty: 5 boxes Directions: Inject 90 units daily. Medications administered, dispensed and verified on the date indicated above Patient has been notified to shredder picker medication in Dr. Virgen's office. Anthony Henley LPN documented in this encounterDoctors Hospital05-24-2022 Miscellaneous Notes* Telephone Encounter - Kaitlyn Hernández RPh - 02/07/2022 10:17 AM EDT PharmClovis called daughter. She said they were able to get Lantus yesterday, got full box of Lantus for$35 (insurance covered it). PharmClovis spoke with daughter, will plan to apply for Basaglar PAP [place] [employer] in March at next PharmD appt so patient doesn't have this issue again with Sanofi. Kaitlyn Hernández PharmD, [facility] Primary Care Clinical Pharmacist Kamala [facility] * Telephone Encounter - Kaitlyn Hernández RPh - 02/06/2022 4:01 PM EDT Daughter, Loan, [...] me updated on status. Kaitlyn Hernández PharmD, [facility] Primary Care Clinical Pharmacist Lisa Souza [facility] * Telephone Encounter - Kaitlyn Hernández RPh - 02/06/2022 2:37 PM EDT PharmClovis called and spoke with Loan. States patient [...] Semglee - can purchase a vial from [employer] with a GoodRx coupon for ~$60. Patient says patient can't afford that. She says that pharmacy can split abox of Lantus but cost per pen is too pricey. Semglee does come in pens, 1 box of 5 pens costs ~$92with GoodRx coupon (~$18/pen). Patient states this would be affordable for patient. PharmClovis advised her to call pharmacy, see if would be willing to split a box of Semglee so he could purchase 1 pen for ~$18. Daughter agreed to call this afternoon with plans to inform PharmD (PharmClovis will then send prescription to pharmacy). Patient has issues getting Lantus through Sanofi. She has no issues getting Humalog through [employer]. Briefly discussed possibly switching patient from Lantus to Basaglar later this summer so no longer has issues with insulin supply. Daughter thought this would be a good idea so will do paperwork later this summer. PharmClovis will await daughter's call. Kaitlyn Hernández PharmD, [facility] Primary Care Clinical Pharmacist Kamala LUN[place]ORD Lisa [facility] * Telephone Encounter - Anthony Henley LPN - 02/06/2022 1:26 PM EDT Spoke with Loan and given number for [employer]. She is also going to check with pharmacy about cost of medication. * Telephone Encounter - GURPREET Murray - 02/06/2022 10:41 AM EDT [facility] does not have any vouchers for Lantus that would work with patient insurance. Family could checkwith [employer]([phone]) for short term cost assistance. Negrita will also send note to Diana as Sw noted that patient follows with Kaitlyn in regards to hisdiabetes care and see if she has any short term assistance ideas. * Telephone Encounter - Anthony Henley LPN - 02/06/2022 10:02 AM EDT Patient daughter states that [email or web address] sends refill form to our office 1 [...] Virgen MD] Preferred pharmacy: [facility] [address] - [address] - [phone] Delivery method: MailD Daughter says patient will be out of the medication tonight. The shipment for this medication does not go out until today so she is asking for a pen that he could have. Please return call to daughter, [phone] documented in this encounterDoctors Hospital05-20-2022 Instructions* Patient Instructions* Papito Castano V, DO - 02/03/2022 2:02 PM EDT [facility] for your [facility] [...] physician or booking an appointment, please call [phone] or speak with any Patient Bed Teacher. Hours: Sunday through Sunday 7:30 am to 7:00 pm. Sunday and Sunday: 8:00 am to 2:30 pm. documented in this encounterDoctors Hospital05-20-2022 History of Present illness Narrative* Papito Castano [...] calf [facility] leg. [facility]. PAST MEDICAL HISTORY [...] mouth every 12 hours. Prescribed by outside fundraising specialist Losartan-hydroCHLOROthiazide 100-12.5 mg per tablet Take 1 [...] Continuous Intervention/Comfort measure: Medication documented in this encounterDoctors Hospital05-18-2022 Miscellaneous Notes* Telephone Encounter - Tammy Davies LPN - 02/01/2022 10:28 AM EDT Patient daughter Loan calling asking for refill on father Lantus insulin 90 day supply from Patient assistance with [employer]. Yesterday request was not sent correctly. She said gets faxed to [employer]. The Insulin gets mailed to his home. She did not have the fax number, she gave me phone number for [email or web address] [phone]. Father has 4 days Lantus left. Please advise documented in this encounterDoctors Hospital05-17-2022 Miscellaneous Notes* Telephone Encounter - Janet King Ma - 01/31/2022 4:54 PM EDT ALFA 11/21/21 NOV 03/03/22 Has pending labs due before next appt Being sent to mail order pahrmacy * Telephone Encounter - Radha Frey Pss - 01/31/2022 4:44 PM EDT Patient has [...] patient. Radha Frey Pss documented in this encounterDoctors Hospital05-13-2022 History of Present illness Narrative* Saad Park APRN.PECAN SHELLER - 01/27/2022 3:27 PM EDT Images from the original note were not included. 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 This started today. Has tried nothing for relief. Symptoms are worsened by walking. Denies numbness/tingling of right lower extremity. 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 Prescribed by outside fundraising specialist insulin glargine (LANTUS SOLOSTAR U-100 INSULIN) 100 [...] ORTHOPAEDICS - Agrees to plan Saad Park APRN.CAESAR documented in this encounterDoctors Hospital04-28-2022 Miscellaneous Notes* Telephone Encounter - Kaitlyn Hernández RPh - 01/12/2022 3:09 PM EDT During PharmD visit for DM today, patient's daughter reported patient needs a refill of colestipol.Refill order pended for PCP signature if appropriate. Pending Prescriptions Disp Refills COLESTIPOL 1 GRAM TABLET 60 tablet 5 Sig: Take 1 tablet by mouth twice daily. JANET: No Kaitlyn Hernández RPh documented in this encounterDoctors Hospital04-28-2022 History of Present illness Narrative* Kaitlyn Hernández [...] Humalog, and Sanofi through PAPs Diabetes supplies: [employer] System: daughter sets up pill box, [...] mouth every 12 hours. Prescribed by outside fundraising specialist flecainide (TAMBOCOR) 150 mg tablet Take 150 [...] TG 130 08/16/2021 The ASCVD Risk score (Lucianboaz PÉREZ Jr., et al., 2013) failed to calculate for the following reasons: The valid total cholesterol range is 130 to 320 mg/dL Albumin/Creat Ratio (mg/g) Date Value 08/16/2021 231 (H) PHARMACOTHERAPY ASSESSMENT/PLAN: 1. Type 2 diabetes mellitus without complication, with long-term current use of insulin ([facility]) - ICD9: 250.00, V58.67, ICD10: E11.9, Z79.4 [...] BCPS Primary Care Clinical Pharmacist Lisa Souza [facility] The majority of the pharmacy visit (> 50%) was spent counseling and/or coordinating care for thepatient. interaction: face to face time was 35 minutes. documented in this encounterDoctors Hospital04-28-2022 Instructions* Patient Instructions* Kaitlyn Hernández RPh - [...] butter DRINK MORE WATER documented in this encounterDoctors Hospital04-18-2022 Miscellaneous Notes* Telephone Encounter - Kaitlyn Hernández RPh - 01/02/2022 2:42 PM EDT PharmClovis called [facility] ([phone]) and spoke with a helpful car sales representative. She stated patient is due to have a shipment tomorrow. Vacation Planner changed the delivery information so this shipment will be shipped to patient's home. PharmD called patient's daughter, Loan, and informed of the above information. Kaitlyn Hernández PharmD, [facility] Primary Care Clinical Pharmacist Lisa Souza [facility] * Telephone Encounter - Denisha Shepard APRN.CNP - 12/30/2021 5:51 PM EDT Is this something that can be done, or does it need to come here? * Telephone Encounter - Nisha Wilson - 12/30/2021 12:05 PM EDT Patient's daughter calling regarding patient's request for medicationi nsulin lispro (HUMALOG KWIKPEN INSULIN) 100 unit/mL . DaughterLoan says the medication is shipped by [facility], . Medication is being sent to [facility] instead of patient's home. Daughter is asking for this to be changed to being delivered to patient's home. Please return call to Loan ([phone]) when corrected. documented in this encounterDoctors Hospital04-14-2022 Miscellaneous Notes* Telephone Encounter - Leslie Herbert [...] notify patient. Leslie Herbert documented in this encounterDoctors Hospital04-14-2022 Miscellaneous Notes* Telephone Encounter - Janet King [...] corrected script for Humalog is sent to [facility] Patient [facility]. The last script sent was for 16 units and not 26 units. He is going to run out of insulin Please advise insulin lispro (HUMALOG KWIKPEN INSULIN) 100 unit/mL 5 Pen 1 11/03/2021 Sig: Inject 26 Units subcutaneously three times daily before meals. Class: Med Update Route: SUBCUTANEOUS documented in this encounterDoctors Hospital03-31-2022 Miscellaneous Notes* Telephone Encounter - Janet King Ma - 12/15/2021 6:02 PM EDT PCP portion signed and returned to PharmD * Telephone Encounter - Kaitlyn Hernández RPh - 12/15/2021 3:12 PM EDT PharmClovis started PAP application for Jardiance today. Domenico [...] BCPS Primary Care Clinical Pharmacist Lisa Souza [facility] documented in this encounterDoctors Hospital10-27-2021 History of Present illness Narrative* Maisha Ortiz RT(R) - 07/13/2021 10:10 AM EDT Radiology Service Progress Note PATIENT NAME: Faisal Alarcon DATE OF SERVICE: July 13, 2021 TIME: 10:08 AM PATIENT IDENTITY VERIFICATION COMPLETED USING TWO (2) IDENTIFIERS: Name and Date of confirmedby patient verbally. FALL SCREENING: Has the patient had 2 falls in the last year or 1 fall with injury or currently using an Ambulatory Assistive Device (Walker, Cane, Wheelchair, Crutches, etc.)? No PATIENT GENDER DATA: Male PATIENT RELEVANT IMPLANT DATA REVIEWED: Not Applicable RADIOLOGY DEPARTMENT: General X-ray: Exam(s) Completed: Chest X-Ray PERIPHERAL IV DATA: Not applicable SIGNED BY: RT Natalie(R) July 13, 2021 10:08 AM documented in this encounterDoctors Hospital09-08-2021 History of Present illness Narrative* Kameron Arrington RT(Leslee) - 05/25/2021 2:50 PM EDT Radiology Service Progress Note PATIENT NAME: Faisal Alarcon DATE OF SERVICE: May 25, 2021 TIME: 2:53 PM PATIENT IDENTITY VERIFICATION COMPLETED USING TWO (2) IDENTIFIERS: Name and Date of confirmedby patient verbally. FALL SCREENING: Has the patient had 2 falls in the last year or 1 fall with injury or currently using an Ambulatory Assistive Device (Walker, Cane, Wheelchair, Crutches, etc.)? No PATIENT GENDER DATA: Male PATIENT RELEVANT IMPLANT DATA REVIEWED: Yes RADIOLOGY DEPARTMENT: General X-ray: Exam(s) Completed: Rib X-Ray: Right PERIPHERAL IV DATA: Not applicable SIGNED BY: RT Griselda(Leslee) May 25, 2021 2:53 PM documented in this encounterDoctors Hospital05-17-2021 History of Past illness Narrative* Problem Noted Date Resolved Date SOB (shortness of breath) 01/31/20212020 Abnormal EKG 01/31/2021 05/06/2021 Sciatica 06/15/2005 05/06/2021 Paranoid schizophrenia, subc hronic condition with acute exacerbation 05/11/2005 04/23/2017 documented as of this encounter (statuses as of 12/12/2021) [address]17-2021 History of Past illness Narrative* Problem Noted Date Resolved Date SOB (shortness of breath) 01/31/20212020 Abnormal EKG 01/31/2021 05/06/2021 Sciatica 06/15/2005 05/06/2021 Paranoid schizophrenia, subc hronic condition with acute exacerbation 05/11/2005 04/23/2017 documented as of this encounter (statuses as of 12/15/2021) [facility] of Past illness Narrative* Problem Noted Date Resolved Date SOB (shortness of breath) 01/31/20212020 Abnormal EKG 01/31/2021 05/06/2021 Sciatica 06/15/2005 05/06/2021 Paranoid schizophrenia, subc hronic condition with acute exacerbation 05/11/2005 04/23/2017 documented as of this encounter (statuses as of 12/29/2021) [facility] History of Past illness Narrative* Problem Noted Date Resolved Date SOB (shortness of breath) 01/31/20212020 Abnormal EKG 01/31/2021 05/06/2021 Sciatica 06/15/2005 05/06/2021 Paranoid schizophrenia, subc hronic condition with acute exacerbation 05/11/2005 04/23/2017 documented as of this encounter (statuses as of 01/02/2022) [facility] of Past illness Narrative* Problem Noted Date Resolved Date SOB (shortness of breath) 01/31/20212020 Abnormal EKG 01/31/2021 05/06/2021 Sciatica 06/15/2005 05/06/2021 Paranoid schizophrenia, subc hronic condition with acute exacerbation 05/11/2005 04/23/2017 documented as of this encounter (statuses as of 01/12/2022) [facility] of Past illness Narrative* Problem Noted Date Resolved Date SOB (shortness of breath) 01/31/20212020 Abnormal EKG 01/31/2021 05/06/2021 Sciatica 06/15/2005 05/06/2021 Paranoid schizophrenia, subc hronic condition with acute exacerbation 05/11/2005 04/23/2017 documented as of this encounter (statuses as of 01/12/2022) [facility] of Past illness Narrative* Problem Noted Date Resolved Date SOB (shortness of breath) 01/31/20212020 Abnormal EKG 01/31/2021 05/06/2021 Sciatica 06/15/2005 05/06/2021 Paranoid schizophrenia, subc hronic condition with acute exacerbation 05/11/2005 04/23/2017 documented as of this encounter (statuses as of 01/27/2022) [facility] of Past illness Narrative* Problem Noted Date Resolved Date SOB (shortness of breath) 01/31/20212020 Abnormal EKG 01/31/2021 05/06/2021 Sciatica 06/15/2005 05/06/2021 Paranoid schizophrenia, subc hronic condition with acute exacerbation 05/11/2005 04/23/2017 documented as of this encounter (statuses as of 01/31/2022) [facility] Past illness Narrative* Problem Noted Date Resolved Date SOB (shortness of breath) 01/31/20212020 Abnormal EKG 01/31/2021 05/06/2021 Sciatica 06/15/2005 05/06/2021 Paranoid schizophrenia, subc hronic condition with acute exacerbation 05/11/2005 04/23/2017 documented as of this encounter (statuses as of 02/01/2022) [facility] Narrative* Problem Noted Date Resolved Date SOB (shortness of breath) 01/31/20212020 Abnormal EKG 01/31/2021 05/06/2021 Sciatica 06/15/2005 05/06/2021 Paranoid schizophrenia, subc hronic condition with acute exacerbation 05/11/2005 04/23/2017 documented as of this encounter (statuses as of 02/02/2022) [facility] Narrative* Problem Noted Date Resolved Date SOB (shortness of breath) 01/31/20212020 Abnormal EKG 01/31/2021 05/06/2021 Sciatica 06/15/2005 05/06/2021 Paranoid schizophrenia, subc hronic condition with acute exacerbation 05/11/2005 04/23/2017 documented as of this encounter (statuses as of 02/03/2022) [facility] Narrative* Problem Noted Date Resolved Date SOB (shortness of breath) 01/31/20212020 Abnormal EKG 01/31/2021 05/06/2021 Sciatica 06/15/2005 05/06/2021 Paranoid schizophrenia, subc hronic condition with acute exacerbation 05/11/2005 04/23/2017 documented as of this encounter (statuses as of 02/07/2022) [facility] Narrative* Problem Noted Date Resolved Date SOB (shortness of breath) 01/31/20212020 Abnormal EKG 01/31/2021 05/06/2021 Sciatica 06/15/2005 05/06/2021 Paranoid schizophrenia, subc hronic condition with acute exacerbation 05/11/2005 04/23/2017 documented as of this encounter (statuses as of 02/09/2022) [facility] Narrative* Problem Noted Date Resolved Date SOB (shortness of breath) 01/31/20212020 Abnormal EKG 01/31/2021 05/06/2021 Nonspecific abnormal results of liver function s julia 03/31/2009 03/03/2022 Overview: ALT 57 in -, 83 in 09-25, 75 in 03-25 Clarify when Crestor started as labs first abnl on 09-19-08 US 03-25: multiple, small GS with no GB wall thickening, liver with fatty infiltration Sciatica 06/15/2005 05/06/2021 Paranoid schizophrenia, subc hronic condition with acute exacerbation 05/11/2005 04/23/2017 documented as of this encounter (statuses as of 03/03/2022) [facility] Narrative* Problem Noted [...] of this encounter (statuses as of 03/06/2022) [facility] Narrative* Problem Noted [...] of this encounter (statuses as of 03/06/2022) [facility] Narrative* Problem Noted [...] of this encounter (statuses as of 03/23/2022) [facility] Narrative* Problem Noted [...] of this encounter (statuses as of 03/23/2022) [facility] Narrative* Problem Noted [...] of this encounter (statuses as of 04/08/2022) [facility] Narrative* Problem Noted [...] of this encounter (statuses as of 05/08/2022) [facility] Narrative* Problem Noted [...] of this encounter (statuses as of 05/31/2022) [facility] Narrative* Problem Noted [...] of this encounter (statuses as of 06/22/2022) [facility] Narrative* Problem Noted [...] of this encounter (statuses as of 06/22/2022) [facility] Narrative* Problem Noted [...] of this encounter (statuses as of 08/14/2022) [facility] Narrative* Problem Noted [...] of this encounter (statuses as of 08/21/2022) [facility] Narrative* Problem Noted [...] of this encounter (statuses as of 09/26/2022) [facility] Narrative* Problem Noted [...] of this encounter (statuses as of 09/29/2022) [facility] Narrative* Problem Noted [...] of this encounter (statuses as of 10/04/2022) [facility] Narrative* Problem Noted [...] of this encounter (statuses as of 10/04/2022) [facility] Narr[facility]* Problem Noted Date Resolved Date SOB (shortness of breath) 01/31/20212020 Abnormal EKG 01/31/2021 05/06/2021 Nonspecific abnormal results of liver function s dy 03/31/2009 03/03/2022 Overview: ALT 57 in 6-08, 83 in -, 75 in - Clarify when Crestor started as labs first abnl on 09-19-08 US 7-09: multiple, small GS with no GB wall thickening, liver with fatty infiltration Sciatica 06/15/2005 05/06/2021 Paranoid schizophrenia, subc hronic condition with acute exacerbation 05/11/2005 04/23/2017 documented as of this encounter (statuses as of 10/16/2022) [facility] Narr[facility]* Problem Noted [...] of this encounter (statuses as of 10/16/2022) [facility]* Problem Noted [...] of this encounter (statuses as of 10/26/2022) [facility]* Problem Noted [...] of this encounter (statuses as of 11/10/2022) [facility] Narrative* Problem Noted [...] of this encounter (statuses as of 11/13/2022) [facility] Narrative* Problem Noted [...] of this encounter (statuses as of 11/22/2022) [facility] Narrative* Problem Noted [...] of this encounter (statuses as of 11/27/2022) [facility] Narrative* Problem Noted [...] of this encounter (statuses as of 11/29/2022) [facility] Narrative* Problem Noted [...] of this encounter (statuses as of 01/19/2023) [facility] Narr[facility]* Problem Noted [...] of this encounter (statuses as of 02/14/2023) [facility]arr[facility]* Problem Noted [...] of this encounter (statuses as of 02/16/2023) [facility]* Problem Noted [...] of this encounter (statuses as of 02/17/2023) [facility]arr[facility]* Problem Noted [...] of this encounter (statuses as of 02/22/2023) [facility]* Problem Noted [...] of this encounter (statuses as of 03/03/2023) [facility]arr[facility]* Problem Noted [...] of this encounter (statuses as of 03/06/2023) [facility]* Problem Noted [...] of this encounter (statuses as of 03/20/2023) [facility]* Problem Noted Date Resolved Date SOB (shortness of breath) 01/31/20212020 Abnormal EKG 01/31/2021 05/06/2021 Nonspecific abnormal results of liver function s julia 03/31/2009 03/03/2022 Overview: ALT 57 in 6-08, 83 in 09-25, 75 in 03-25 Clarify when Crestor started as labs first abnl on 09-19-08 US 03-25: multiple, small GS with no GB wall thickening, liver with fatty infiltration Sciatica 06/15/2005 05/06/2021 Paranoid schizophrenia, subc hronic condition with acute exacerbation 05/11/2005 04/23/2017 documented as of this encounter (statuses as of 03/22/2023) [facility] N[facility]* Problem Noted [...] of this encounter (statuses as of 04/13/2023) [facility] History of Past illness Narrative* Problem Noted [...] of this encounter (statuses as of 04/26/2023) [facility] History of Past illness Narrative* Problem Noted [...] of this encounter (statuses as of 05/01/2023) [facility] History of Past illness Narrative* Problem Noted [...] of this encounter (statuses as of 05/02/2023) [facility] History of Past illness Narrative* Problem Noted [...] of this encounter (statuses as of 05/12/2023) [facility] History of Past illness Narrative* Problem Noted [...] of this encounter (statuses as of 05/17/2023) [facility] of Past illness Narrative* Problem Noted [...] of this encounter (statuses as of 05/19/2023) [facility] History of Past illness Narrative* Problem Noted [...] of this encounter (statuses as of 06/04/2023) [facility] History of Present illness Narrative* Maisha Ortiz RT(R) - 01/24/2021 2:40 PM EDT Radiology Service Progress Note PATIENT NAME: Faisal Alarcon DATE OF SERVICE: January 24, 2021 TIME: 2:41 PM PATIENT IDENTITY VERIFICATION COMPLETED USING TWO (2) IDENTIFIERS: Name and Date of confirmedby patient verbally. FALL SCREENING: Has the patient had 2 falls in the last year or 1 fall with injury or currently using an Ambulatory Assistive Device (Walker, Cane, Wheelchair, Crutches, etc.)? No PATIENT GENDER DATA: Male PATIENT RELEVANT IMPLANT DATA REVIEWED: Not Applicable RADIOLOGY DEPARTMENT: General X-ray: Exam(s) Completed: Chest X-Ray PERIPHERAL IV DATA: Not applicable SIGNED BY: RT Natalie(R) January 24, 2021 2:41 PM [facility] Diagnosis Type 2 diabetes mellitus without complication, with long-term current use of insulin (HCC) [facility] Diagnosis Type 2 diabetes mellitus without complication, with long-term current use of insulin (HCC) [facility] Diagnosis Type 2 diabetes mellitus without complication, with long-term current use of insulin (HCC) [facility] Diagnosis Type 2 diabetes mellitus without complication, with long-term current use of insulin (HCC)- Primary [facility] Diagnosis Diarrhea, unspecified type [facility] Diagnosis Strain of calf muscle, right, initial encounter- Primary [facility] Diagnosis Type 2 diabetes mellitus without complication, with long-term current use of insulin (HCC) [facility] Diagnosis Gastrocnemius tear, right, initial encounter- Primary [facility] Diagnosis Type 2 diabetes mellitus without complication, with long-term current use of insulin (HCC) [facility] Diagnosis Essential hypertension- Primary Unspecified essential hypertension Pure hypercholesterolemia Paroxysmal atrial fibrillation (HCC) Atrial fibrillation Type 2 diabetes mellitus with microalbuminuria, with long-term current use of insulin (HCC) Chronic anticoagulation Long-term (current) use of anticoagulants Need for hepatitis C screening test Special screening examination for other specified viral diseases [facility] Diagnosis Diarrhea, unspecified type [facility] Diagnosis Type 2 diabetes mellitus without complication, with long-term current use of insulin (HCC)- Primary Essential hypertension Unspecified essential hypertension [facility] Diagnosis Chest pain, unspecified type- Primary Accidental medication error, initial encounter [facility] Diagnosis Essential hypertension Unspecified essential hypertension [facility] Diagnosis Essential hypertension- Primary Unspecified essential hypertension Paroxysmal atrial fibrillation (HCC) Atrial fibrillation Pure hypercholesterolemia Type 2 diabetes mellitus with microalbuminuria, with long-term current use of insulin (HCC) Chronic anticoagulation Long-term (current) use of anticoagulants Monocytosis Monocytosis (symptomatic) Need for influenza vaccination Need for prophylactic vaccination and inoculation against influenza [facility] Diagnosis Type 2 diabetes mellitus without complication, with long-term current use of insulin (HCC)- Primary [facility] Diagnosis Pure hypercholesterolemia [facility] Diagnosis Type 2 diabetes mellitus without complication, with long-term current use of insulin (HCC) [facility] Diagnosis Type 2 diabetes mellitus with microalbuminuria, with long-term current use of insulin (HCC)- Primary [facility] Diagnosis Chest pain, unspecified type- Primary Leukocytosis, unspecified type Type 2 diabetes mellitus with microalbuminuria, 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, 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, chronic condition Paroxysmal atrial fibrillation (HCC) Atrial fibrillation Essential hypertension Unspecified essential hypertension Pure hypercholesterolemia [facility] Diagnosis Skin mass- Primary Localized superficial swelling, mass, or lump [facility] Diagnosis Lesion of subcutaneous tissue- Primary Unspecified disorder of skin and subcutaneous tissue [facility] Diagnosis Acute left ankle pain- Primary [facility] Diagnosis Nausea- Primary Nausea alone Hypoglycemia Hypoglycemia, unspecified Type 2 diabetes mellitus with microalbuminuria, with long-term current use of insulin (HCC) Leukocytosis, unspecified type Abnormal serum level of lipase Other nonspecific abnormal serum enzyme levels Benign prostatic hyperplasia with lower urinary tract symptoms, symptom details unspecified Urinary retention Retention of urine, unspecified [facility] Diagnosis Acute constipation- Primary Unspecified constipation [facility] Diagnosis OPENED IN ERROR- Primary To allow closing an encounter opened in error (used in SmartSet) [facility] Diagnosis Inflamed acrochordon- Primary Unspecified hypertrophic and atrophic condition of skin Seborrheic keratoses, inflamed Inflamed seborrheic keratosis [facility]* Diagnosis Encounter for post surgical wound check- Primary [facility] Diagnosis Near syncope- Primary Syncope and collapse Fall, initial encounter Acute upper respiratory infection Acute upper respiratory infections of unspecified site Morbid obesity (HCC) Morbid obesity [facility] Diagnosis Essential hypertension- Primary Unspecified essential [...] not elsewhere classified [facility]* Diagnosis Diarrhea, unspecified type [facility]* Diagnosis Viral URI with cough- Primary Acute upper respiratory infections of unspecified site Suspected COVID-19 virus infection Bronchitis Bronchitis, not specified as acute or chronic [facility]* Diagnosis Nausea Nausea alone [facility]* Diagnosis Acute hip pain, right- Primary [facility] Diagnosis Pure hypercholesterolemia [facility]* Diagnosis Essential hypertension Unspecified essential hypertension [facility]* Diagnosis Type 2 diabetes mellitus without complication, with long-term current use of insulin (HCC)- Primary [facility]* Diagnosis Paroxysmal atrial fibrillation (HCC)- Primary Atrial fibrillation Essential hypertension Unspecified essential hypertension Mixed hyperlipidemia Sleep apnea, unspecified type Restrictive lung disease Other diseases of lung, not elsewhere classified 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, 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, chronic condition Obesity, Class II, BMI 35-39.9 Obesity, unspecified Chronic anticoagulation Long-term (current) use of anticoagulants Pain of right hip Psoriatic arthritis (HCC) Psoriatic arthropathy Type 2 diabetes mellitus without complication, with long-term current use of insulin (HCC) [facility] Diagnosis Paroxysmal atrial fibrillation (HCC)- Primary Atrial fibrillation Restrictive lung disease Other diseases of lung, not elsewhere classified Pain of right hip Psoriatic arthritis (HCC) Psoriatic arthropathy [facility]* Diagnosis Viral URI with cough Acute upper respiratory infections of unspecified site Bronchitis Bronchitis, not specified as acute or chronic [facility]* Diagnosis Nausea Nausea alone [facility]* Diagnosis SOB (shortness of breath)- Primary Shortness of breath Bilateral leg edema Edema Weight increase Abnormal weight gain [facility] Diagnosis 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 Venous incompetence Unspecified venous (peripheral) insufficiency Bilateral leg edema Edema SOB (shortness of breath) Shortness of breath Weight gain Abnormal weight gain CJ (obstructive sleep apnea) Obstructive sleep apnea (adult) (pediatric) Hypersomnolence Hypersomnia, unspecified Cushingoid facies Other ill-defined conditions [facility] Diagnosis Venous incompetence- Primary Unspecified venous (peripheral) insufficiency Lymphedema of left leg Other lymphedema Varicose veins of both legs with edema documented in this encounter [facility]* Diagnosis Abrasion of left hand, initial encounter- Primary documented in this encounter [facility] note* Diagnosis Encounter for medical assessment- Primary [facility]* Diagnosis Essential hypertension Unspecified essential hypertension [facility]* Diagnosis SOB (shortness of breath) Shortness of breath Bilateral leg edema Edema Weight increase Abnormal weight gain [facility]* Diagnosis Generalized weakness- Primary Other malaise and fatigue [facility]* Diagnosis Sinobronchitis Unspecified sinusitis (chronic) [facility]* Diagnosis Viral URI with cough Acute upper respiratory infections of unspecified site Bronchitis Bronchitis, not specified as acute or chronic [facility]* Diagnosis Acute hip pain, right [facility]* Diagnosis Acute left ankle pain [facility]* Diagnosis Diarrhea, unspecified type documented in this encounter [facility] note* Diagnosis Rib pain Chest pain, unspecified [facility]* Diagnosis SOB (shortness of breath) Shortness of breath [facility]* Diagnosis Essential hypertension- Primary Unspecified essential hypertension Paroxysmal atrial fibrillation (HCC) Atrial fibrillation 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) Other psoriasis Schizophrenia, 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, chronic condition Obesity, Class II, BMI 35-39.9 Obesity, unspecified Chronic anticoagulation Long-term (current) use of anticoagulants History of bladder cancer Personal history of malignant neoplasm of bladder Benign prostatic hyperplasia without lower urinary tract symptoms Fatigue, unspecified type Mixed hyperlipidemia Disorder of bone Disorder of bone and cartilage, unspecified 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, macular edema presence unspecified, unspecified laterality (HCC) Need for vaccination Need for prophylactic vaccination and inoculation against unspecified single disease Lymphedema of left leg Other lymphedema Psoriatic arthritis (HCC) Psoriatic arthropathy [facility] Diagnosis Snoring- Primary Other dyspnea and respiratory abnormality Witnessed episode of apnea Nocturnal leg movements Abnormal involuntary movements Frequent nocturnal awakening Other sleep disturbances Nocturia documented in this encounter [facility] for referral (narrative)* Diagnostic Procedure Only (Urgent) - Closed Specialty Diagnoses / Procedures Referred By Contac t Referred To Contact XR IMAGING Diagnoses Acute left ankle pain Procedures XR ANKLE GENERAL 3V AP/LAT/OBL LEFT RADEX ANKLE COMPLETE MINIMUM 3 VIEWS Denisha Shepard APRN.CNP [address] [place] [address] Xr Imaging Referral ID Status Reason Start Date Expiration Date V isits Requested Visits Authorized [id number] Closed Auto-Generate d Referral 02/16/2023 03/17/2024 1 1 [facility] for referral (narrative)* Outpatient Procedure (Routine) - Authorized Specialty Diagnoses / Procedures [facility] Diagnoses Near syncope Fall, initial encounter Procedures ECG COMPLETE ECG ROUTINE ECG W/LEAST 12 LDS W/I&R Osvaldo Travis PA-C [address] [place] [address] [facility] [address] [place] [address] Referral ID Status Reason Start Date Expiration Date Visits Requested Visits Authorized [id number] Authorized Auto-Generat ed Referral 05/18/2023 05/17/2024 1 1 [facility] for referral (narrative)* Diagnostic Procedure Only (Routine) - Closed Specialty Diagnoses / Procedures Referred By Contac t Referred To Contact XR IMAGING Diagnoses Acute hip pain, right Procedures XR HIP GENERAL 3V PELV/AP/LAT RIGHT RADEX HIP UNILATERAL WITH PELVIS 2-3 VIEWS Jarvis Nicole MD [address] [place] [address] Xr Imaging [facility] Referral ID Status Reason Start Date Expiration Date V isits Requested Visits Authorized [id number] Closed Auto-Generate d Referral 07/23/2023 08/21/2024 1 1 [facility] for referral (narrative)* Outpatient Procedure (Routine) - Pending Review Specialty Diagnoses / Procedures Referred By Contac t Referred To Contact [facility] Diagnoses SOB (shortness of breath) Bilateral leg edema Weight increase Procedures ECG COMPLETE ECG ROUTINE ECG W/LEAST 12 LDS W/I&R Osvaldo Travis PA-C [address] [place] [address] [id number] [place] [address] Referral ID Status Reason Start Date Expiration Date Visits Requested Visits Authorized [id number] Pending Review Auto-Generat ed Referral 02/04/2024 02/03/2025 1 1 [facility] for referral (narrative)* Outpatient Procedure (Routine) - Pending Review Specialty Diagnoses / Procedures Referred By Contac t Referred To Contact [facility] Diagnoses Varicose veins of both lower extremities with inflammation Procedures US VENOUS INCOMPETENCY JABARI VAS LAB DUP-SCAN XTR VEINS COMPLETE BILATERAL STUDY Osvaldo Travis PA-C [address] [place] [address] [id number] [place] [address] Referral ID Status Reason Start Date Expiration Date Visits Requested Visits Authorized [id number] Pending Review Auto-Generat ed Referral 02/28/2024 02/27/2025 1 1 * Consult, Test, Treat (Routine) - Authorized Specialty Diagnoses / Procedures Referred By Contac t Referred To Contact Diagnoses CJ (obstructive sleep apnea) Hypersomnolence Procedures CONSULT TO SLEEP MEDICINE - ADULT OFFICE/OUTPATIENT [facility] 60 MINUTES Osvaldo Travis PA-C [address] [place] [address] Referral ID Status Reason Start Date Expiration Date Visits Requested Visits Authorized [id number] Authorized PCP Requested Referral 02/28/2024 02/27/2025 1 1 * Outpatient Procedure (Routine) - Authorized Specialty Diagnoses / Procedures Referred By Contac t Referred To Contact [facility] Diagnoses Bilateral leg edema SOB (shortness of breath) Weight gain Procedures ECHO ECHO TTHRC R-T 2D W/WOM-MODE COMPL SPEC&COLR D Osvaldo Travis PA-C [address] [place] [address] [facility] [address] [place] [address] Referral ID Status Reason Start Date Expiration Date Visits Requested Visits Authorized [id number] Authorized Auto-Generat ed Referral 02/28/2024 02/27/2025 1 1 [facility] for referral (narrative)* Diagnostic Procedure Only (Routine) - Closed Specialty Diagnoses / Procedures Referred By Contac t Referred To Contact XR IMAGING Diagnoses Acute hip pain, right Procedures XR HIP GENERAL 3V PELV/AP/LAT RIGHT RADEX HIP UNILATERAL WITH PELVIS 2-3 VIEWS Jarvis Nicole MD [address] [place] [address] [place] [address] Referral ID Status Reason Start Date Expiration Date V isits Requested Visits Authorized [id number] Closed Auto-Generate d Referral 07/23/2023 08/21/2024 1 1 [facility] for referral (narrative)* Diagnostic Procedure Only (Urgent) - Closed Specialty Diagnoses / Procedures Referred By Contac t Referred To Contact XR IMAGING Diagnoses Acute left ankle pain Procedures XR ANKLE GENERAL 3V AP/LAT/OBL LEFT RADEX ANKLE COMPLETE MINIMUM 3 VIEWS Denisha Shepard APRN.[employer] [address] [place] [address] [place] [address] Referral ID Status Reason Start Date Expiration Date V isits Requested Visits Authorized [id number] Closed Auto-Generate d Referral 02/16/2023 03/17/2024 1 1 [facility] for referral (narrative)* Diagnostic Procedure Only (Routine) - Closed Specialty Diagnoses / Procedures Referred By Contac t Referred To Contact XR IMAGING Diagnoses Rib pain Procedures XR RIBS/CHEST 3V AP RIB/OBLS/CXR RT X-RAY RIBS, CHEST 3+ VW Jeff Virgen MD [address] [place] [address] [place] [address] Referral ID Status Reason Start Date Expiration Date V isits Requested Visits Authorized [id number] Closed Auto-Generate d Referral 05/25/2021 09/16/2021 99 99 [facility] for visit Narrative* Diagnostic Procedure Only (Routine) - Closed Specialty Diagnoses / Procedures Referred By Contac t Referred To Contact XR IMAGING Diagnoses Acute hip pain, right Procedures XR HIP GENERAL 3V PELV/AP/LAT RIGHT RADEX HIP UNILATERAL WITH PELVIS 2-3 VIEWS Jarvis Nicole MD [address] [place] [address] [place] [address] Referral ID Status Reason Start Date Expiration Date V isits Requested Visits Authorized [id number] Closed Auto-Generate d Referral 07/23/2023 08/21/2024 1 1 [facility] for visit Narrative* Diagnostic Procedure Only (Urgent) - Closed Specialty Diagnoses / Procedures Referred By Contac t Referred To Contact XR IMAGING Diagnoses Acute left ankle pain Procedures XR ANKLE GENERAL 3V AP/LAT/OBL LEFT RADEX ANKLE COMPLETE MINIMUM 3 VIEWS Denisha Shepard APRN.[employer] [address] [place] [address] [place] [address] Referral ID Status Reason Start Date Expiration Date V isits Requested Visits Authorized [id number] Closed Auto-Generate d Referral 02/16/2023 03/17/2024 1 1 [facility] Diagnostic Procedure Only (Routine) - Closed Specialty Diagnoses / Procedures Referred By Contac t Referred To Contact XR IMAGING Diagnoses Rib pain Procedures XR RIBS/CHEST 3V AP RIB/OBLS/CXR RT X-RAY RIBS, CHEST 3+ VW Jeff Virgen MD [address] [place] [address] [place] [address] Referral ID Status Reason Start Date Expiration Date V isits Requested Visits Authorized [id number] Closed Auto-Generate d Referral 05/25/2021 09/16/2021 99 99 [facility] Advance Directives Documents on File Type Date Recorded 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 Advance Directive(s) Advance Directive(s) 03/14/2021 10:51 AM Documents on File Type Date Recorded 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 Advance Directive(s) Advance Directive(s) 03/14/2021 10:51 AM Documents on File Type Date Recorded 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 Advance Directive(s) 03/14/2021 10:51 AM Documents on File Type Date Recorded 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 Advance Directive(s) 03/14/2021 10:51 AM Reason for Referral Specialty Diagnoses / Procedures Referred By Contac t Referred To Contact Orthopedics Diagnoses Strain of calf muscle, right, initial encounter Procedures CONSULT TO ORTHOPAEDICS OFFICE/OUTPATIENT [facility] 60-74 MINUTES Saad Park APRN.[employer]ER [address] [place] [address] Referral ID Status Reason Start Date Expiration Date Visits Requested Visits Authorized [id number] Pending Review PCP Requested Referral 01/27/2022 01/27/2023 1 1 Specialty Diagnoses / Procedures Referred By Contac t Referred To Contact [facility] Diagnoses Gastrocnemius tear, right, initial encounter Procedures CONSULT TO PHYSICAL THERAPY PHYSICAL THERAPY EVALUATION HIGH COMPLEX 45 MINS Papito Castano, Aisha, DO [address] [place] [address] [facility] [address] [place] [address] Referral ID Status Reason Start Date Expiration Date Visits Requested Visits Authorized [id number] Pending Review Auto-Generat ed Referral 02/03/2022 02/03/2023 1 1 Specialty Diagnoses / Procedures Referred By Contac t Referred To Contact General Surgery Diagnoses Skin mass Procedures CONSULT TO GENERAL SURGERY OFFICE/OUTPATIENT [facility] 60-74 MINUTES Jeff Virgen MD [address] [place] [address] Referral ID Status Reason Start Date Expiration Date Visits Requested Visits Authorized [id number] Pending Review PCP Requested Referral 01/19/2023 01/19/2024 1 1 Specialty Diagnoses / Procedures Referred By Contac t Referred To Contact Urology Diagnoses Benign prostatic hyperplasia with lower urinary tract symptoms, symptom details unspecified Urinary retention Procedures CONSULT TO UROLOGY Jeff Virgen MD [address] [place] [address] Referral ID Status Reason Start Date Expiration Date Visits Requested Visits Authorized [id number] Ref Not Required PCP Requested Referral 03/02/2023 03/01/2024 1 1 Specialty Diagnoses / Procedures Referred By Contac t Referred To Contact Ophthalmology Diagnoses Type 2 diabetes mellitus with microalbuminuria, with long-term current use of insulin (HCC) Procedures CONSULT TO OPHTHALMOLOGY OFFICE/OUTPATIENT [facility]) 60-74 MINUTES Jeff Virgen MD [address] [place] [address] Referral ID Status Reason Start Date Expiration Date Visits Requested Visits Authorized [id number] Pending Review PCP Requested Referral 06/06/2023 06/05/2024 1 1 Specialty Diagnoses / Procedures Referred By Contac t Referred To Contact [facility] Diagnoses Venous incompetence Lymphedema of left leg Varicose veins of both legs with edema Procedures CONSULT TO LYMPHEDEMA THERAPY OFFICE/OUTPATIENT [facility] MDM 60 MINUTES Osvaldo Travis PA-C [address] [place] [address] [facility] [address] [place] [address] Referral ID Status Reason Start Date Expiration Date Visits Requested Visits Authorized [id number] Authorized Auto-Generat ed Referral 03/21/2024 03/21/2025 1 1 Summary Purpose Family History No Family History Records FoundNo Family History Records Found Additional Source Comments Source Comments (unrecognize d section and content) In the event this informatio n is protected by the Federal Confidentiality of Alcohol and Drug Abuse Patient Records regulations: The Federal rules restrict any use of the information to criminally investigate or prosecute any alcohol or drug abuse patient.[facility] HospitalIn the event this information is protected by the Federal Confidentiality of Alcohol and Drug Abuse Patient Records regulations: The Federal rules restrict any use of the information to criminally investigate or prosecute any alcohol or drug abuse patient.[facility] HospitalIn the event this information is protected by the Federal Confidentiality of Alcohol and Drug Abuse Patient Records regulations: The Federal rules restrict any use of the information to criminally investigate or prosecute any alcohol or drug abuse patient.[facility] HospitalIn the event this information is protected by the Federal Confidentiality of Alcohol and Drug Abuse Patient Records regulations: The Federal rules restrict any use of the information to criminally investigate or prosecute any alcohol or drug abuse patient.[facility] HospitalIn the event this information is protected by the Federal Confidentiality of Alcohol and Drug Abuse Patient Records regulations: The Federal rules restrict any use of the information to criminally investigate or prosecute any alcohol or drug abuse patient.[facility] HospitalIn the event this information is protected by the Federal Confidentiality of Alcohol and Drug Abuse Patient Records regulations: The Federal rules restrict any use of the information to criminally investigate or prosecute any alcohol or drug abuse patient.[facility] HospitalIn the event this information is protected by the Federal Confidentiality of Alcohol and Drug Abuse Patient Records regulations: The Federal rules restrict any use of the information to criminally investigate or prosecute any alcohol or drug abuse patient.[facility] HospitalIn the event this information is protected by the Federal Confidentiality of Alcohol and Drug Abuse Patient Records regulations: The Federal rules restrict any use of the information to criminally investigate or prosecute any alcohol or drug abuse patient.[facility] HospitalIn the event this information is protected by the Federal Confidentiality of Alcohol and Drug Abuse Patient Records regulations: The Federal rules restrict any use of the information to criminally investigate or prosecute any alcohol or drug abuse patient.[facility] HospitalIn the event this information is protected by the Federal Confidentiality of Alcohol and Drug Abuse Patient Records regulations: The Federal rules restrict any use of the information to criminally investigate or prosecute any alcohol or drug abuse patient.[facility] HospitalIn the event this information is protected by the Federal Confidentiality of Alcohol and Drug Abuse Patient Records regulations: The Federal rules restrict any use of the information to criminally investigate or prosecute any alcohol or drug abuse patient.[facility] HospitalIn the event this information is protected by the Federal Confidentiality of Alcohol and Drug Abuse Patient Records regulations: The Federal rules restrict any use of the information to criminally investigate or prosecute any alcohol or drug abuse patient.[facility] HospitalIn the event this information is protected by the Federal Confidentiality of Alcohol and Drug Abuse Patient Records regulations: The Federal rules restrict any use of the information to criminally investigate or prosecute any alcohol or drug abuse patient.[facility] HospitalIn the event this information is protected by the Federal Confidentiality of Alcohol and Drug Abuse Patient Records regulations: The Federal rules restrict any use of the information to criminally investigate or prosecute any alcohol or drug abuse patient.[facility] HospitalIn the event this information is protected by the Federal Confidentiality of Alcohol and Drug Abuse Patient Records regulations: The Federal rules restrict any use of the information to criminally investigate or prosecute any alcohol or drug abuse patient.[facility] HospitalIn the event this information is protected by the Federal Confidentiality of Alcohol and Drug Abuse Patient Records regulations: The Federal rules restrict any use of the information to criminally investigate or prosecute any alcohol or drug abuse patient.[facility] HospitalIn the event this information is protected by the Federal Confidentiality of Alcohol and Drug Abuse Patient Records regulations: The Federal rules restrict any use of the information to criminally investigate or prosecute any alcohol or drug abuse patient.[facility] HospitalIn the event this information is protected by the Federal Confidentiality of Alcohol and Drug Abuse Patient Records regulations: The Federal rules restrict any use of the information to criminally investigate or prosecute any alcohol or drug abuse patient.[facility] HospitalIn the event this information is protected by the Federal Confidentiality of Alcohol and Drug Abuse Patient Records regulations: The Federal rules restrict any use of the information to criminally investigate or prosecute any alcohol or drug abuse patient.[facility] HospitalIn the event this information is protected by the Federal Confidentiality of Alcohol and Drug Abuse Patient Records regulations: The Federal rules restrict any use of the information to criminally investigate or prosecute any alcohol or drug abuse patient.[facility] HospitalIn the event this information is protected by the Federal Confidentiality of Alcohol and Drug Abuse Patient Records regulations: The Federal rules restrict any use of the information to criminally investigate or prosecute any alcohol or drug abuse patient.[facility] HospitalIn the event this information is protected by the Federal Confidentiality of Alcohol and Drug Abuse Patient Records regulations: The Federal rules restrict any use of the information to criminally investigate or prosecute any alcohol or drug abuse patient.[facility] HospitalIn the event this information is protected by the Federal Confidentiality of Alcohol and Drug Abuse Patient Records regulations: The Federal rules restrict any use of the information to criminally investigate or prosecute any alcohol or drug abuse patient.[facility] HospitalIn the event this information is protected by the Federal Confidentiality of Alcohol and Drug Abuse Patient Records regulations: The Federal rules restrict any use of the information to criminally investigate or prosecute any alcohol or drug abuse patient.[facility] HospitalIn the event this information is protected by the Federal Confidentiality of Alcohol and Drug Abuse Patient Records regulations: The Federal rules restrict any use of the information to criminally investigate or prosecute any alcohol or drug abuse patient.[facility] HospitalIn the event this information is protected by the Federal Confidentiality of Alcohol and Drug Abuse Patient Records regulations: The Federal rules restrict any use of the information to criminally investigate or prosecute any alcohol or drug abuse patient.[facility] HospitalIn the event this information is protected by the Federal Confidentiality of Alcohol and Drug Abuse Patient Records regulations: The Federal rules restrict any use of the information to criminally investigate or prosecute any alcohol or drug abuse patient.[facility] HospitalIn the event this information is protected by the Federal Confidentiality of Alcohol and Drug Abuse Patient Records regulations: The Federal rules restrict any use of the information to criminally investigate or prosecute any alcohol or drug abuse patient.[facility] HospitalIn the event this information is protected by the Federal Confidentiality of Alcohol and Drug Abuse Patient Records regulations: The Federal rules restrict any use of the information to criminally investigate or prosecute any alcohol or drug abuse patient.[facility] HospitalIn the event this information is protected by the Federal Confidentiality of Alcohol and Drug Abuse Patient Records regulations: The Federal rules restrict any use of the information to criminally investigate or prosecute any alcohol or drug abuse patient.[facility] HospitalIn the event this information is protected by the Federal Confidentiality of Alcohol and Drug Abuse Patient Records regulations: The Federal rules restrict any use of the information to criminally investigate or prosecute any alcohol or drug abuse patient.[facility] HospitalIn the event this information is protected by the Federal Confidentiality of Alcohol and Drug Abuse Patient Records regulations: The Federal rules restrict any use of the information to criminally investigate or prosecute any alcohol or drug abuse patient.[facility] HospitalIn the event this information is protected by the Federal Confidentiality of Alcohol and Drug Abuse Patient Records regulations: The Federal rules restrict any use of the information to criminally investigate or prosecute any alcohol or drug abuse patient.[facility] HospitalIn the event this information is protected by the Federal Confidentiality of Alcohol and Drug Abuse Patient Records regulations: The Federal rules restrict any use of the information to criminally investigate or prosecute any alcohol or drug abuse patient.[facility] HospitalIn the event this information is protected by the Federal Confidentiality of Alcohol and Drug Abuse Patient Records regulations: The Federal rules restrict any use of the information to criminally investigate or prosecute any alcohol or drug abuse patient.[facility] HospitalIn the event this information is protected by the Federal Confidentiality of Alcohol and Drug Abuse Patient Records regulations: The Federal rules restrict any use of the information to criminally investigate or prosecute any alcohol or drug abuse patient.[facility] HospitalIn the event this information is protected by the Federal Confidentiality of Alcohol and Drug Abuse Patient Records regulations: The Federal rules restrict any use of the information to criminally investigate or prosecute any alcohol or drug abuse patient.[facility] HospitalIn the event this information is protected by the Federal Confidentiality of Alcohol and Drug Abuse Patient Records regulations: The Federal rules restrict any use of the information to criminally investigate or prosecute any alcohol or drug abuse patient.[facility] HospitalIn the event this information is protected by the Federal Confidentiality of Alcohol and Drug Abuse Patient Records regulations: The Federal rules restrict any use of the information to criminally investigate or prosecute any alcohol or drug abuse patient.[facility] HospitalIn the event this information is protected by the Federal Confidentiality of Alcohol and Drug Abuse Patient Records regulations: The Federal rules restrict any use of the information to criminally investigate or prosecute any alcohol or drug abuse patient.[facility] HospitalIn the event this information is protected by the Federal Confidentiality of Alcohol and Drug Abuse Patient Records regulations: The Federal rules restrict any use of the information to criminally investigate or prosecute any alcohol or drug abuse patient.[facility] HospitalIn the event this information is protected by the Federal Confidentiality of Alcohol and Drug Abuse Patient Records regulations: The Federal rules restrict any use of the information to criminally investigate or prosecute any alcohol or drug abuse patient.[facility] HospitalIn the event this information is protected by the Federal Confidentiality of Alcohol and Drug Abuse Patient Records regulations: The Federal rules restrict any use of the information to criminally investigate or prosecute any alcohol or drug abuse patient.[facility] HospitalIn the event this information is protected by the Federal Confidentiality of Alcohol and Drug Abuse Patient Records regulations: The Federal rules restrict any use of the information to criminally investigate or prosecute any alcohol or drug abuse patient.[facility] HospitalIn the event this information is protected by the Federal Confidentiality of Alcohol and Drug Abuse Patient Records regulations: The Federal rules restrict any use of the information to criminally investigate or prosecute any alcohol or drug abuse patient.[facility] HospitalIn the event this information is protected by the Federal Confidentiality of Alcohol and Drug Abuse Patient Records regulations: The Federal rules restrict any use of the information to criminally investigate or prosecute any alcohol or drug abuse patient.[facility] HospitalIn the event this information is protected by the Federal Confidentiality of Alcohol and Drug Abuse Patient Records regulations: The Federal rules restrict any use of the information to criminally investigate or prosecute any alcohol or drug abuse patient.[facility] HospitalIn the event this information is protected by the Federal Confidentiality of Alcohol and Drug Abuse Patient Records regulations: The Federal rules restrict any use of the information to criminally investigate or prosecute any alcohol or drug abuse patient.[facility] HospitalIn the event this information is protected by the Federal Confidentiality of Alcohol and Drug Abuse Patient Records regulations: The Federal rules restrict any use of the information to criminally investigate or prosecute any alcohol or drug abuse patient.[facility] HospitalIn the event this information is protected by the Federal Confidentiality of Alcohol and Drug Abuse Patient Records regulations: The Federal rules restrict any use of the information to criminally investigate or prosecute any alcohol or drug abuse patient.[facility] HospitalIn the event this information is protected by the Federal Confidentiality of Alcohol and Drug Abuse Patient Records regulations: The Federal rules restrict any use of the information to criminally investigate or prosecute any alcohol or drug abuse patient.[facility] HospitalIn the event this information is protected by the Federal Confidentiality of Alcohol and Drug Abuse Patient Records regulations: The Federal rules restrict any use of the information to criminally investigate or prosecute any alcohol or drug abuse patient.[facility] HospitalIn the event this information is protected by the Federal Confidentiality of Alcohol and Drug Abuse Patient Records regulations: The Federal rules restrict any use of the information to criminally investigate or prosecute any alcohol or drug abuse patient.[facility] HospitalIn the event this information is protected by the Federal Confidentiality of Alcohol and Drug Abuse Patient Records regulations: The Federal rules restrict any use of the information to criminally investigate or prosecute any alcohol or drug abuse patient.[facility] HospitalIn the event this information is protected by the Federal Confidentiality of Alcohol and Drug Abuse Patient Records regulations: The Federal rules restrict any use of the information to criminally investigate or prosecute any alcohol or drug abuse patient.[facility] HospitalIn the event this information is protected by the Federal Confidentiality of Alcohol and Drug Abuse Patient Records regulations: The Federal rules restrict any use of the information to criminally investigate or prosecute any alcohol or drug abuse patient.[facility] HospitalIn the event this information is protected by the Federal Confidentiality of Alcohol and Drug Abuse Patient Records regulations: The Federal rules restrict any use of the information to criminally investigate or prosecute any alcohol or drug abuse patient.[facility] HospitalIn the event this information is protected by the Federal Confidentiality of Alcohol and Drug Abuse Patient Records regulations: The Federal rules restrict any use of the information to criminally investigate or prosecute any alcohol or drug abuse patient.[facility] HospitalIn the event this information is protected by the Federal Confidentiality of Alcohol and Drug Abuse Patient Records regulations: The Federal rules restrict any use of the information to criminally investigate or prosecute any alcohol or drug abuse patient.[facility] HospitalIn the event this information is protected by the Federal Confidentiality of Alcohol and Drug Abuse Patient Records regulations: The Federal rules restrict any use of the information to criminally investigate or prosecute any alcohol or drug abuse patient.[facility] HospitalIn the event this information is protected by the Federal Confidentiality of Alcohol and Drug Abuse Patient Records regulations: The Federal rules restrict any use of the information to criminally investigate or prosecute any alcohol or drug abuse patient.[facility] HospitalIn the event this information is protected by the Federal Confidentiality of Alcohol and Drug Abuse Patient Records regulations: The Federal rules restrict any use of the information to criminally investigate or prosecute any alcohol or drug abuse patient.[facility] HospitalIn the event this information is protected by the Federal Confidentiality of Alcohol and Drug Abuse Patient Records regulations: The Federal rules restrict any use of the information to criminally investigate or prosecute any alcohol or drug abuse patient.[facility] HospitalIn the event this information is protected by the Federal Confidentiality of Alcohol and Drug Abuse Patient Records regulations: The Federal rules restrict any use of the information to criminally investigate or prosecute any alcohol or drug abuse patient.[facility] HospitalIn the event this information is protected by the Federal Confidentiality of Alcohol and Drug Abuse Patient Records regulations: The Federal rules restrict any use of the information to criminally investigate or prosecute any alcohol or drug abuse patient.[facility] HospitalIn the event this information is protected by the Federal Confidentiality of Alcohol and Drug Abuse Patient Records regulations: The Federal rules restrict any use of the information to criminally investigate or prosecute any alcohol or drug abuse patient.[facility] HospitalIn the event this information is protected by the Federal Confidentiality of Alcohol and Drug Abuse Patient Records regulations: The Federal rules restrict any use of the information to criminally investigate or prosecute any alcohol or drug abuse patient.[facility] HospitalIn the event this information is protected by the Federal Confidentiality of Alcohol and Drug Abuse Patient Records regulations: The Federal rules restrict any use of the information to criminally investigate or prosecute any alcohol or drug abuse patient.[facility] HospitalIn the event this information is protected by the Federal Confidentiality of Alcohol and Drug Abuse Patient Records regulations: The Federal rules restrict any use of the information to criminally investigate or prosecute any alcohol or drug abuse patient.[facility] HospitalIn the event this information is protected by the Federal Confidentiality of Alcohol and Drug Abuse Patient Records regulations: The Federal rules restrict any use of the information to criminally investigate or prosecute any alcohol or drug abuse patient.[facility] HospitalIn the event this information is protected by the Federal Confidentiality of Alcohol and Drug Abuse Patient Records regulations: The Federal rules restrict any use of the information to criminally investigate or prosecute any alcohol or drug abuse patient.[facility] HospitalIn the event this information is protected by the Federal Confidentiality of Alcohol and Drug Abuse Patient Records regulations: The Federal rules restrict any use of the information to criminally investigate or prosecute any alcohol or drug abuse patient.[facility] HospitalIn the event this information is protected by the Federal Confidentiality of Alcohol and Drug Abuse Patient Records regulations: The Federal rules restrict any use of the information to criminally investigate or prosecute any alcohol or drug abuse patient.[facility] HospitalIn the event this information is protected by the Federal Confidentiality of Alcohol and Drug Abuse Patient Records regulations: The Federal rules restrict any use of the information to criminally investigate or prosecute any alcohol or drug abuse patient.[facility] HospitalIn the event this information is protected by the Federal Confidentiality of Alcohol and Drug Abuse Patient Records regulations: The Federal rules restrict any use of the information to criminally investigate or prosecute any alcohol or drug abuse patient.[facility] HospitalIn the event this information is protected by the Federal Confidentiality of Alcohol and Drug Abuse Patient Records regulations: The Federal rules restrict any use of the information to criminally investigate or prosecute any alcohol or drug abuse patient.[facility] HospitalIn the event this information is protected by the Federal Confidentiality of Alcohol and Drug Abuse Patient Records regulations: The Federal rules restrict any use of the information to criminally investigate or prosecute any alcohol or drug abuse patient.[facility] HospitalIn the event this information is protected by the Federal Confidentiality of Alcohol and Drug Abuse Patient Records regulations: The Federal rules restrict any use of the information to criminally investigate or prosecute any alcohol or drug abuse patient.[facility] HospitalIn the event this information is protected by the Federal Confidentiality of Alcohol and Drug Abuse Patient Records regulations: The Federal rules restrict any use of the information to criminally investigate or prosecute any alcohol or drug abuse patient.[facility] HospitalIn the event this information is protected by the Federal Confidentiality of Alcohol and Drug Abuse Patient Records regulations: The Federal rules restrict any use of the information to criminally investigate or prosecute any alcohol or drug abuse patient.[facility] HospitalIn the event this information is protected by the Federal Confidentiality of Alcohol and Drug Abuse Patient Records regulations: The Federal rules restrict any use of the information to criminally investigate or prosecute any alcohol or drug abuse patient.[facility] HospitalIn the event this information is protected by the Federal Confidentiality of Alcohol and Drug Abuse Patient Records regulations: The Federal rules restrict any use of the information to criminally investigate or prosecute any alcohol or drug abuse patient.[facility] HospitalIn the event this information is protected by the Federal Confidentiality of Alcohol and Drug Abuse Patient Records regulations: The Federal rules restrict any use of the information to criminally investigate or prosecute any alcohol or drug abuse patient.[facility] HospitalIn the event this information is protected by the Federal Confidentiality of Alcohol and Drug Abuse Patient Records regulations: The Federal rules restrict any use of the information to criminally investigate or prosecute any alcohol or drug abuse patient.[facility] HospitalIn the event this information is protected by the Federal Confidentiality of Alcohol and Drug Abuse Patient Records regulations: The Federal rules restrict any use of the information to criminally investigate or prosecute any alcohol or drug abuse patient.[facility] HospitalIn the event this information is protected by the Federal Confidentiality of Alcohol and Drug Abuse Patient Records regulations: The Federal rules restrict any use of the information to criminally investigate or prosecute any alcohol or drug abuse patient.[facility] HospitalIn the event this information is protected by the Federal Confidentiality of Alcohol and Drug Abuse Patient Records regulations: The Federal rules restrict any use of the information to criminally investigate or prosecute any alcohol or drug abuse patient.[facility] HospitalIn the event this information is protected by the Federal Confidentiality of Alcohol and Drug Abuse Patient Records regulations: The Federal rules restrict any use of the information to criminally investigate or prosecute any alcohol or drug abuse patient.[facility] HospitalIn the event this information is protected by the Federal Confidentiality of Alcohol and Drug Abuse Patient Records regulations: The Federal rules restrict any use of the information to criminally investigate or prosecute any alcohol or drug abuse patient.[facility] HospitalIn the event this information is protected by the Federal Confidentiality of Alcohol and Drug Abuse Patient Records regulations: The Federal rules restrict any use of the information to criminally investigate or prosecute any alcohol or drug abuse patient.[facility] HospitalIn the event this information is protected by the Federal Confidentiality of Alcohol and Drug Abuse Patient Records regulations: The Federal rules restrict any use of the information to criminally investigate or prosecute any alcohol or drug abuse patient.[facility] HospitalIn the event this information is protected by the Federal Confidentiality of Alcohol and Drug Abuse Patient Records regulations: The Federal rules restrict any use of the information to criminally investigate or prosecute any alcohol or drug abuse patient.[facility] HospitalIn the event this information is protected by the Federal Confidentiality of Alcohol and Drug Abuse Patient Records regulations: The Federal rules restrict any use of the information to criminally investigate or prosecute any alcohol or drug abuse patient.[facility] HospitalIn the event this information is protected by the Federal Confidentiality of Alcohol and Drug Abuse Patient Records regulations: The Federal rules restrict any use of the information to criminally investigate or prosecute any alcohol or drug abuse patient.[facility] HospitalIn the event this information is protected by the Federal Confidentiality of Alcohol and Drug Abuse Patient Records regulations: The Federal rules restrict any use of the information to criminally investigate or prosecute any alcohol or drug abuse patient.[facility] HospitalIn the event this information is protected by the Federal Confidentiality of Alcohol and Drug Abuse Patient Records regulations: The Federal rules restrict any use of the information to criminally investigate or prosecute any alcohol or drug abuse patient.[facility] HospitalIn the event this information is protected by the Federal Confidentiality of Alcohol and Drug Abuse Patient Records regulations: The Federal rules restrict any use of the information to criminally investigate or prosecute any alcohol or drug abuse patient.[facility] HospitalIn the event this information is protected by the Federal Confidentiality of Alcohol and Drug Abuse Patient Records regulations: The Federal rules restrict any use of the information to criminally investigate or prosecute any alcohol or drug abuse patient.[facility] HospitalIn the event this information is protected by the Federal Confidentiality of Alcohol and Drug Abuse Patient Records regulations: The Federal rules restrict any use of the information to criminally investigate or prosecute any alcohol or drug abuse patient.[facility] HospitalIn the event this information is protected by the Federal Confidentiality of Alcohol and Drug Abuse Patient Records regulations: The Federal rules restrict any use of the information to criminally investigate or prosecute any alcohol or drug abuse patient.[facility] HospitalIn the event this information is protected by the Federal Confidentiality of Alcohol and Drug Abuse Patient Records regulations: The Federal rules restrict any use of the information to criminally investigate or prosecute any alcohol or drug abuse patient.[facility] HospitalIn the event this information is protected by the Federal Confidentiality of Alcohol and Drug Abuse Patient Records regulations: The Federal rules restrict any use of the information to criminally investigate or prosecute any alcohol or drug abuse patient.[facility] HospitalIn the event this information is protected by the Federal Confidentiality of Alcohol and Drug Abuse Patient Records regulations: The Federal rules restrict any use of the information to criminally investigate or prosecute any alcohol or drug abuse patient.[facility] HospitalIn the event this information is protected by the Federal Confidentiality of Alcohol and Drug Abuse Patient Records regulations: The Federal rules restrict any use of the information to criminally investigate or prosecute any alcohol or drug abuse patient.[facility] HospitalIn the event this information is protected by the Federal Confidentiality of Alcohol and Drug Abuse Patient Records regulations: The Federal rules restrict any use of the information to criminally investigate or prosecute any alcohol or drug abuse patient.[facility] HospitalIn the event this information is protected by the Federal Confidentiality of Alcohol and Drug Abuse Patient Records regulations: The Federal rules restrict any use of the information to criminally investigate or prosecute any alcohol or drug abuse patient.[facility] HospitalIn the event this information is protected by the Federal Confidentiality of Alcohol and Drug Abuse Patient Records regulations: The Federal rules restrict any use of the information to criminally investigate or prosecute any alcohol or drug abuse patient.[facility] HospitalIn the event this information is protected by the Federal Confidentiality of Alcohol and Drug Abuse Patient Records regulations: The Federal rules restrict any use of the information to criminally investigate or prosecute any alcohol or drug abuse patient.[facility] HospitalIn the event this information is protected by the Federal Confidentiality of Alcohol and Drug Abuse Patient Records regulations: The Federal rules restrict any use of the information to criminally investigate or prosecute any alcohol or drug abuse patient.[facility] HospitalIn the event this information is protected by the Federal Confidentiality of Alcohol and Drug Abuse Patient Records regulations: The Federal rules restrict any use of the information to criminally investigate or prosecute any alcohol or drug abuse patient.[facility] HospitalIn the event this information is protected by the Federal Confidentiality of Alcohol and Drug Abuse Patient Records regulations: The Federal rules restrict any use of the information to criminally investigate or prosecute any alcohol or drug abuse patient.[facility] HospitalIn the event this information is protected by the Federal Confidentiality of Alcohol and Drug Abuse Patient Records regulations: The Federal rules restrict any use of the information to criminally investigate or prosecute any alcohol or drug abuse patient.[facility] HospitalIn the event this information is protected by the Federal Confidentiality of Alcohol and Drug Abuse Patient Records regulations: The Federal rules restrict any use of the information to criminally investigate or prosecute any alcohol or drug abuse patient.Do[facility] HospitalIn the event this information is protected by the Federal Confidentiality of Alcohol and Drug Abuse Patient Records regulations: The Federal rules restrict any use of the information to criminally investigate or prosecute any alcohol or drug abuse patient.[facility] Reason for Visit (unrecogniz ed section and content) Reason Onset Date Comments Refill Request 12/12/2021 Reason Comments Forms [employer] PAP Reason Comments Medication Problem Reason Onset Date Comments Refill Request 12/29/2021 Reason Comments Diabetes Reason Onset Date Comments Refill Request 01/12/2022 Reason Comments right calf 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 Reason Onset Date [...] Onset Date Comments Transition Of Care 11/22/2022 [facility] 3/7-37 d x: chest pain Reason Comments Orders [...] Request 08/27/2023 Reason Comments Coughing Up Blood Reason Onset Date Comments Refill Request 10/12/2023 Reason Onset Date Comments Refill Request 11/02/2023 Reason Onset Date Comments Refill Request 11/14/2023 Reason Comments F/U 6 months Reason Comments Epi Gonzalez PA letter Reason Onset Date Comments Refill Request 01/09/2024 Reason Onset Date Comments Refill Request 01/18/2024 Reason Comments Edema Reason Comments Edema B/L ankles and feet L>R x 3 days Reason Comments Follow Up Reason Comments Recheck 4 week f/u edema in bilateral legs, SOB Reason Comments Edema Left hand swollen x 1 day Reason Onset Date Comments Refill Request 04/10/2024 Reason Comments Patient Update Blood In Urine Reason Onset Date Comments Escalation of Care 04/11/2024 Reason Onset Date Comments Refill Request 04/14/2024 Reason Onset Date Comments Refill Request 05/05/2024 Reason Comments Dizziness Reason Onset Date Comments Refill Request 06/08/2024 Reason Onset Date Comments Refill Request 06/20/2024 Reason Comments Patient Question Reason Comments New Patient Evaluation Specialty Diagnoses / Procedures Referred By Shara t Referred To Contact Diagnoses CJ (obstructive sleep apnea) Hypersomnolence Procedures CONSULT TO SLEEP MEDICINE - ADULT OFFICE/OUTPATIENT [facility] 60 MINUTES Osvaldo Travis PA-C [address] [place] [address] Referral ID Status Reason Start Date Expiration Date V isits Requested Visits Authorized [id number] Closed PCP Requested Referral 02/28/2024 02/27/2025 1 1 Reason Onset Date Comments Refill Request 07/09/2024 Care Teams (unrecognized sec tion and content) Student Services Counselor Relationship Specialty Start Date End Date Jeff Virgen MD [address] [place], [place] [id number] PCP - General Family Practice 01/10/18 Asad Rothman, formerly [facility] [address] [place], [place] [id number] Pharmacist Pharmacy 05/24/20 Kaitlyn eHrnández, formerly [facility] [address] [place], [place] [address] Pharmacist Pharmacy 03/31/21 Student Services Counselor Relationship Specialty Start Date End Date Jeff Virgen MD [address] [place] [address] PCP - General Family Practice 01/10/18 [facility] [address] [facility] [place] [address] Pharmacist Pharmacy 05/24/20 [facility] [address] [facility] [place] [address] Pharmacist Pharmacy 03/31/21 Student Services Counselor Relationship Specialty Start Date End Date Jeff Virgen MD [address] [facility] [place] [address] PCP - General Family Practice 01/10/18 [facility] [address] [facility] [place] [address] Pharmacist Pharmacy 05/24/20 [facility]lyn [facility] [address] [place] [address] Pharmacist Pharmacy 03/31/21 Student Services Counselor Relationship Specialty Start Date End Date Jeff Virgen MD [address] [place] [address] PCP - General Family Practice 01/10/18 [facility] [address] [facility] [place] [address] Pharmacist Pharmacy 05/24/20 [facility]lyn [facility] [address] [place] [address] Pharmacist Pharmacy 03/31/21 Student Services Counselor Relationship Specialty Start Date End Date Jeff Virgen MD [address] [facility] [place] [address] PCP - General Family Practice 01/10/18 [facility] [address] [place] [address] Pharmacist Pharmacy 05/24/20 Kaitlyn Hernández, formerly [facility] [address] [facility] [place] [address] Pharmacist Pharmacy 03/31/21 Student Services Counselor Relationship Specialty Start Date End Date Jeff Virgen MD [address] [facility] [place] [address] PCP - General Family Practice 01/10/18 [facility] [address] [facility] [place] [address] Pharmacist Pharmacy 05/24/20 Kaitlyn Hernández, formerly [facility] [address] [facility] [place] [address] Pharmacist Pharmacy 03/31/21 Student Services Counselor Relationship Specialty Start Date End Date Jeff Virgen MD [address] [facility] [place] [address] PCP - General Family Practice 01/10/18 [facility] [address] [facility] [place] [address] Pharmacist Pharmacy 05/24/20 [facility]lyn [facility] [address] [facility] [place] [address] Pharmacist Pharmacy 03/31/21 Student Services Counselor Relationship Specialty Start Date End Date Jeff Virgen MD [address] [facility] [place] [address] PCP - General Family Practice 01/10/18 Asad Rothman, formerly [facility] [address] [facility] [place] [address] Pharmacist Pharmacy 05/24/20 [facility]lyn [facility] [address] [facility] [place] [address] Pharmacist Pharmacy 03/31/21 Student Services Counselor Relationship Specialty Start Date End Date Jeff Virgen MD [address] [facility] [place] [address] PCP - General Family Practice 01/10/18 [facility] [address] [place] [address] Pharmacist Pharmacy 05/24/20 Kaitlyn [facility] [address] [place] [address] Pharmacist Pharmacy 03/31/21 Student Services Counselor Relationship Specialty Start Date End Date Jeff Virgen MD [address] [place] [address] PCP - General Family Practice 01/10/18 [facility] [address] [place] [address] Pharmacist Pharmacy 05/24/20 Kaitlyn [facility] [address] [place] [address] Pharmacist Pharmacy 03/31/21 Student Services Counselor Relationship Specialty Start Date End Date Jeff Virgen MD [address] [facility] [place] [address] PCP - General Family Practice 01/10/18 [facility] [address] [place] [address] Pharmacist Pharmacy 05/24/20 [facility]lyn [facility] [address] [place] [address] Pharmacist Pharmacy 03/31/21 Student Services Counselor Relationship Specialty Start Date End Date Jeff Virgen MD [address] [facility] [place] [address] PCP - General Family Practice 01/10/18 Faizandarcie Asad, formerly [facility] [address] [facility] [place] [address] Pharmacist Pharmacy 05/24/20 [place], [facility] [address] [facility] [place] [address] Pharmacist Pharmacy 03/31/21 Student Services Counselor Relationship Specialty Start Date End Date Jeff Virgen MD [address] [place] [address] PCP - General Family Practice 01/10/18 Stephna GregoriocjRay [facility] Hospital [address] [facility] [place] [address] Pharmacist Pharmacy 05/24/20 Kaitlyn [facility] [address] [place] [address] Pharmacist Pharmacy 03/31/21 Student Services Counselor Relationship Specialty Start Date End Date Jeff Virgen MD [address] [facility] [place] [address] PCP - General Family Practice 01/10/18 FaizanGregorio spraguecj, formerly [facility] [address] [facility] [place] [address] Pharmacist Pharmacy 05/24/20 Kaitlyn Hernández, formerly [facility] [address] [facility] [place] [address] Pharmacist Pharmacy 03/31/21 Student Services Counselor Relationship Specialty Start Date End Date Jeff Virgen MD [address] [facility] [place] [address] PCP - General Family Medicine 01/10/18 Stephan Gregoriocj, formerly [facility] [address] [place] [address] Pharmacist Pharmacy 05/24/20 Jaqueline Hernándezily, formerly [facility] [address] [facility] [place] [address] Pharmacist Pharmacy 03/31/21 Student Services Counselor Relationship Specialty Start Date End Date Jeff Virgen MD [address] [facility] [place] [address] PCP - General Family Medicine 01/10/18 Asad Rothman, formerly [facility] [address] [place] [address] Pharmacist Pharmacy 05/24/20 Kaitlyn Hernández, formerly [facility] [address] [facility] [place] [address] Pharmacist Pharmacy 03/31/21 Student Services Counselor Relationship Specialty Start Date End Date Jeff Virgen MD [address] [facility] [place] [address] PCP - General Family Medicine 01/10/18 Asad Rothman, formerly [facility] [address] [place] [address] Pharmacist Pharmacy 05/24/20 Kaitlyn Hernández, formerly [facility] [address] [place] [address] Pharmacist Pharmacy 03/31/21 Student Services Counselor Relationship Specialty Start Date End Date Jeff Virgen MD [address] [facility] [place] [address] PCP - General Family Medicine 01/10/18 Asad Rothman, formerly [facility] [address] [place] [address] Pharmacist Pharmacy 05/24/20 Kaitlyn Hernández, formerly [facility] [address] [place] [address] Pharmacist Pharmacy 03/31/21 Student Services Counselor Relationship Specialty Start Date End Date Jeff Virgen MD [address] [facility] [place] [address] PCP - General Family Medicine 01/10/18 [facility] [address] [place] [address] Pharmacist Pharmacy 05/24/20 Kaitlyn [facility]Ray [facility] [address] [place] [address] Pharmacist Pharmacy 03/31/21 Student Services Counselor Relationship Specialty Start Date End Date Jeff Virgen MD [address] [place] [address] PCP - General Family Medicine 01/10/18 [facility] [address] [facility] [place] [address] Pharmacist Pharmacy 05/24/20 Kaitlyn [facility]dez[facility] [address] [facility] [place] [address] Pharmacist Pharmacy 03/31/21 Student Services Counselor Relationship Specialty Start Date End Date Jeff Virgen MD [address] [place] [address] PCP - General Family Medicine 01/10/18 [facility] [address] [facility] [place] [address] Pharmacist Pharmacy 05/24/20 Kaitlyn Hernández, formerly [facility] [address] [facility] [place] [address] Pharmacist Pharmacy 03/31/21 Student Services Counselor Relationship Specialty Start Date End Date Jeff Virgen MD [address] [place] [address] PCP - General Family Medicine 01/10/18 Asad Rothman, formerly [facility] [address] [facility] [place] [address] Pharmacist Pharmacy 05/24/20 Kaitlyn [facility]dez[facility] [address] [facility] [place] [address] Pharmacist Pharmacy 03/31/21 Student Services Counselor Relationship Specialty Start Date End Date Jeff Virgen MD [address] [facility] [place] [address] PCP - General Family Medicine 01/10/18 [facility] [address] [facility] [place] [address] Pharmacist Pharmacy 05/24/20 Kaitlyn Hernández, formerly [facility] [address] [facility] [place] [address] Pharmacist Pharmacy 03/31/21 Student Services Counselor Relationship Specialty Start Date End Date Jeff Virgen MD [address] [facility] [place] [address] PCP - General Family Medicine 01/10/18 Asad Rothman, formerly [facility] [address] [facility] [place] [address] Pharmacist Pharmacy 05/24/20 Kaitlyn [facility]ándezRay [facility] [address] [facility] [place] [address] Pharmacist Pharmacy 03/31/21 Student Services Counselor Relationship Specialty Start Date End Date Jeff Virgen MD [address] [place] [address] PCP - General Family Medicine 01/10/18 Asad Rothman, formerly [facility] [address] [facility] [place] [address] Pharmacist Pharmacy 05/24/20 Kaitlyn Hernández, formerly [facility] [address] [place] [address] Pharmacist Pharmacy 03/31/21 Student Services Counselor Relationship Specialty Start Date End Date Jeff Virgen MD [address] [facility] [place] [address] PCP - General Family Medicine 01/10/18 [facility] [address] [place] [address] Pharmacist Pharmacy 05/24/20 Kaitlyn Hern[facility] [address] [place] [address] Pharmacist Pharmacy 03/31/21 Student Services Counselor Relationship Specialty Start Date End Date Jeff Virgen MD [address] [place] [address] PCP - General Family Medicine 01/10/18 Asad Rothman, formerly [facility] [address] [place] [address] Pharmacist Pharmacy 05/24/20 Kaitlyn [facility] [address] [facility] [place] [address] Pharmacist Pharmacy 03/31/21 Student Services Counselor Relationship Specialty Start Date End Date Jeff Virgen MD [address] [facility] [place] [address] PCP - General Family Medicine 01/10/18 Asad Rothman, formerly [facility] [address] [facility] [place] [address] Pharmacist Pharmacy 05/24/20 Kaitlyn Hernández, formerly [facility] [address] [place] [address] Pharmacist Pharmacy 03/31/21 Student Services Counselor Relationship Specialty Start Date End Date Jeff Virgen MD [address] [facility] [place] [address] PCP - General Family Medicine 01/10/18 Faizandarcie GregoriocjRay [facility] Hospital [address] [place] [address] Pharmacist Pharmacy 05/24/20 Edgar KaitlynRay County Memorial Hospital [address] [place] [address] Pharmacist Pharmacy 03/31/21 Student Services Counselor Relationship Specialty Start Date End Date Jeff Virgen MD [address] [place] [address] PCP - General Family Medicine 01/10/18 Stephan Gregoriocj, formerly [facility] [address] [place] [address] Pharmacist Pharmacy 05/24/20 Kaitlyn HernándezRay [facility] [address] [place] [address] Pharmacist Pharmacy 03/31/21 Student Services Counselor Relationship Specialty Start Date End Date Jeff Virgen MD [address] [place] [address] PCP - General Family Medicine 01/10/18 Asad Rothman, formerly [facility] [address] [place] [address] Pharmacist Pharmacy 05/24/20 Jaqueline Hernándezily, formerly [facility] [address] [place] [address] Pharmacist Pharmacy 03/31/21 Student Services Counselor Relationship Specialty Start Date End Date Jeff Virgen MD [address] [place] [address] PCP - General Family Medicine 01/10/18 Asad Rothman, formerly [facility] [address] [place] [address] Pharmacist Pharmacy 05/24/20 Edgar Kaitlyn, formerly [facility] [address] [place] [address] Pharmacist Pharmacy 03/31/21 Student Services Counselor Relationship Specialty Start Date End Date Jeff Virgen MD [address] [place] [address] PCP - General Family Medicine 01/10/18 Asad Rothman, formerly [facility] [address] [place] [address] Pharmacist Pharmacy 05/24/20 [place], Kaitlyn, formerly [facility] [address] [facility] [place] [address] Pharmacist Pharmacy 03/31/21 Student Services Counselor Relationship Specialty Start Date End Date Jeff Virgen MD [address] [place] [address] PCP - General Family Medicine 01/10/18 FaizanAsad sprague, formerly [facility] [address] [place] [address] Pharmacist Pharmacy 05/24/20 Edgar, Kaitlyn, formerly [facility] [address] [place] [address] Pharmacist Pharmacy 03/31/21 Student Services Counselor Relationship Specialty Start Date End Date Jeff Virgen MD [address] [facility] [place] [address] PCP - General Family Medicine 01/10/18 Faizandarcie Asad, formerly [facility] [address] [facility] [place] [address] Pharmacist Pharmacy 05/24/20 [place], [facility] [address] [place] [address] Pharmacist Pharmacy 03/31/21 Student Services Counselor Relationship Specialty Start Date End Date Jeff Virgen MD [address] [place] [address] PCP - General Family Medicine 01/10/18 [facility] [address] [place] [address] Pharmacist Pharmacy 05/24/20 Jaqueline Hernándezily, formerly [facility] [address] [place] [address] Pharmacist Pharmacy 03/31/21 Student Services Counselor Relationship Specialty Start Date End Date Jeff Virgen MD [address] [place] [address] PCP - General Family Medicine 01/10/18 [facility] [address] [place] [address] Pharmacist Pharmacy 05/24/20 [facility] [address] [facility] [place] [address] Pharmacist Pharmacy 03/31/21 Student Services Counselor Relationship Specialty Start Date End Date Jeff Virgen MD [address] [facility] [place] [address] PCP - General Family Medicine 01/10/18 [facility] [address] [place] [address] Pharmacist Pharmacy 05/24/20 [facility] [address] [place] [address] Pharmacist Pharmacy 03/31/21 Student Services Counselor Relationship Specialty Start Date End Date Jeff Virgen MD [address] [place] [address] PCP - General Family Medicine 01/10/18 Asad Rothman, formerly [facility] [address] [place] [address] Pharmacist Pharmacy 05/24/20 [facility] [address] [facility] [place] [address] Pharmacist Pharmacy 03/31/21 Student Services Counselor Relationship Specialty Start Date End Date Jeff Virgen MD [address] [facility] [place] [address] PCP - General Family Medicine 01/10/18 Asad Rothman, formerly [facility] [address] [facility] [place] [address] Pharmacist Pharmacy 05/24/20 Kaitlyn Hernández, formerly [facility] [address] [place] [address] Pharmacist Pharmacy 03/31/21 Student Services Counselor Relationship Specialty Start Date End Date Jeff Virgen MD [address] [place] [address] PCP - General Family Medicine 01/10/18 Asad Rothman, formerly [facility] [address] [facility] [place] [address] Pharmacist Pharmacy 05/24/20 Kaitlyn Hernández, formerly [facility] [address] [facility] [place] [address] Pharmacist Pharmacy 03/31/21 Student Services Counselor Relationship Specialty Start Date End Date Jeff Virgen MD [address] [place] [address] PCP - General Family Medicine 01/10/18 [facility] [address] [place] [address] Pharmacist Pharmacy 05/24/20 Edgar [facility] [address] [place] [address] Pharmacist Pharmacy 03/31/21 Student Services Counselor Relationship Specialty Start Date End Date Jeff Virgen MD [address] [place] [address] PCP - General Family Medicine 01/10/18 Edgar, [facility] [address] [place] [address] Pharmacist Pharmacy 03/31/21 Student Services Counselor Relationship Specialty Start Date End Date Jeff Virgen MD [address] [place] [address] PCP - General Family Medicine 01/10/18 Edgar [facility] [address] [place] [address] Pharmacist Pharmacy 03/31/21 Student Services Counselor Relationship Specialty Start Date End Date Jeff Virgen MD [address] [place] [address] PCP - General Family Medicine 01/10/18 Student Services Counselor Relationship Specialty Start Date End Date Jeff Virgen MD [address] [place] [address] PCP - General Family Medicine 01/10/18 Student Services Counselor Relationship Specialty Start Date End Date Jeff Virgen MD [address] [place] [address] PCP - General Family Medicine 01/10/18 Student Services Counselor Relationship Specialty Start Date End Date Jeff Virgen MD [address] [place] [address] PCP - General Family Medicine 01/10/18 Student Services Counselor Relationship Specialty Start Date End Date Jeff Virgen MD [address] [place] [address] PCP - General Family Medicine 01/10/18 Student Services Counselor Relationship Specialty Start Date End Date Jeff Virgen MD [address] [place] [address] PCP - General Family Medicine 01/10/18 Student Services Counselor Relationship Specialty Start Date End Date Jeff Virgen MD [address] [place] [address] PCP - General Family Medicine 01/10/18 Student Services Counselor Relationship Specialty Start Date End Date Jeff Virgen MD [address] [place] [address] PCP - General Family Medicine 01/10/18 Student Services Counselor Relationship Specialty Start Date End Date Jeff Virgen MD [address] [place], [place] [address] PCP - General Family Medicine 01/10/18 Student Services Counselor Relationship Specialty Start Date End Date Jeff Virgen MD [address] [place] [address] PCP - General Family Medicine 01/10/18 Student Services Counselor Relationship Specialty Start Date End Date Jeff Virgen MD [address] [place] [address] PCP - General Family Medicine 01/10/18 Student Services Counselor Relationship Specialty Start Date End Date Jeff Virgen MD [address] [place] [address] PCP - General Family Medicine 01/10/18 Student Services Counselor Relationship Specialty Start Date End Date Jeff Virgen MD [address] [place] [address] PCP - General Family Medicine 01/10/18 Student Services Counselor Relationship Specialty Start Date End Date Jeff Virgen MD [address] [place] [address] PCP - General Family Medicine 01/10/18 Student Services Counselor Relationship Specialty Start Date End Date Jeff Virgen MD [address] [place] [address] PCP - General Family Medicine 01/10/18 Student Services Counselor Relationship Specialty Start Date End Date Jeff Virgen MD [address] [place] [address] PCP - General Family Medicine 01/10/18 Student Services Counselor Relationship Specialty Start Date End Date Jeff Virgen MD [address] [place] [address] PCP - General Family Medicine 01/10/18 Student Services Counselor Relationship Specialty Start Date End Date Jeff Virgen MD [address] [place] [address] PCP - General Family Medicine 01/10/18 Student Services Counselor Relationship Specialty Start Date End Date Jeff Virgen MD [address] [place] [address] PCP - General Family Medicine 01/10/18 Asad Rothman, formerly [facility] [address] [place] [address] Pharmacist Pharmacy 05/24/20 07/30/23 Kaitlyn Hernández formerly [facility] [address] [place] [address] Pharmacist Pharmacy 03/31/21 08/29/23 Student Services Counselor Relationship Specialty Start Date End Date Jeff Virgen MD [address] [place] [address] PCP - General Family Medicine 01/10/18 Asad Rothman, formerly [facility] [address] [place] [address] Pharmacist Pharmacy 05/24/20 07/30/23 Kaitlyn Hernández, formerly [facility] [address] [place] [address] Pharmacist Pharmacy 03/31/21 08/29/23 Student Services Counselor Relationship Specialty Start Date End Date Jeff Virgen MD [address] [place] [address] PCP - General Family Medicine 01/10/18 Asad Rothman, formerly [facility] [address] [place] [address] Pharmacist Pharmacy 05/24/20 07/30/23 Kaitlyn Hernández, formerly [facility] [address] [place] [address] Pharmacist Pharmacy 03/31/21 08/29/23 Student Services Counselor Relationship Specialty Start Date End Date Jeff Virgen MD [address] [place] [address] PCP - General Family Medicine 01/10/18 Asad Rothman, formerly [facility] [address] [place] [address] Pharmacist Pharmacy 05/24/20 07/30/23 [place], Kaitlyn, formerly [facility] [address] [place] [address] Pharmacist Pharmacy 03/31/21 08/29/23 Student Services Counselor Relationship Specialty Start Date End Date Jeff Virgen MD [address] [place] [address] PCP - General Family Medicine 01/10/18 Asad Rothman, formerly [facility] [address] [place] [address] Pharmacist Pharmacy 05/24/20 07/30/23 Edgar, Kaitlyn, formerly [facility] [address] [place] [address] Pharmacist Pharmacy 03/31/21 08/29/23 Student Services Counselor Relationship Specialty Start Date End Date Jeff Virgen MD [address] [place] [address] PCP - General Family Medicine 01/10/18 Asad Rothman, formerly [facility] [address] [place] [address] Pharmacist Pharmacy 05/24/20 07/30/23 Student Services Counselor Relationship Specialty Start Date End Date Jeff Virgen MD [address] [place] [address] PCP - General Family Medicine 01/10/18 Student Services Counselor Relationship Specialty Start Date End Date Jeff Virgen MD [address] [place] [address] PCP - General Family Medicine 01/10/18 Student Services Counselor Relationship Specialty Start Date End Date Jeff Virgen MD [address] [place], [place] [address] PCP - General Family Medicine 01/10/18 (unrecognized sect ion and content) No Status Records FoundNo Status Records Found INFORMATION SOURCE (unrecogn ized section and content) DATE CREATED AUTHOR 05/18/2024 [facility] DATE CREATED AUTHOR 'S ORGANIZ ATION 06/27/2024 [facility] FOR RECORDS PERTAINING TO PATIENTS WHO ARE [...] BE BASED ON THE PRIMARY CLINICAL RECORDS. [employer] provides no warranty or guarantee of the accuracy or completeness of information in this document.
[2024-07-10 04:25] LABS: Anion Gap 5 (5-15); BUN 27 mg/dL (7-18); BUN/Creat Ratio 21.8 RATIO (10-20); Calcium,Total 9.4 mg/dL (8.5-10.1); Chloride 103 mmol/L (98-107); Creatinine, Serum 1.24 mg/dL (0.70-1.30); EST Glomerular Filtration Rate 60 mL/min (>60); Est Glom Filt Rate - Afr Amer 72 mL/min (>60); Estimated Creatinine Clearance 69.31 ml/min; Glucose 152 mg/dL (74-106); Potassium 3.8 mmol/L (3.5-5.1); Sodium Level 137 mmol/L (136-145); Troponin-I HS (w/2H Reflex) 8 pg/mL (3.0-78.0)
[2024-07-10 04:35] LABS: BNP,B-Type NATRIURETIC PEPTIDE 54.9 pg/mL (0-100)
[2024-07-10 05:52] LABS: Reflex Troponin-HS? (from REC) Y
--- NOTE | 2024-07-10 06:11 | PCM.HP.STD ---
[facility] - General General Date of Admission: 07/10/24 Date of Service: 07/10/24 Chief Complaint: Chest Pain, SOB and Hematuria. [facility] Narrative INGRIS ALARCON, is a 79 M with a past medical history of essential hypertension, hyperlipidemia, remote history of tobacco abuse; (quit 1975), morbid obesity; with BMI of 40.1 this admission, CJ; on CPAP, DM-2; of unknown control, former tobacco abuse, history of nonobstructive CAD, PAF; on diltiazem, flecainide and Eliquis, history of RBBB with LAFB, history of RAD, history of COVID-19 pneumonia, history of bladder cancer, history of gross hematuria, psoriasis, RLS, history of blindness in the Left eye, BPH; s/p TURP on Finasteride, OAB; on oxybutynin, history of cholecystectomy, history of umbilical hernia; s/p repair, GERD; on famotidine, OA; with chronic back pain and listed allergy to amoxicillin (rash) who presents to [facility] ER complaining of chest pain, SOB and hematuria. Mr. Alarcon reports his symptoms began approximately one hour prior to arrival with the abrupt-onset of chest pain that woke him up from a sound sleep and was substernal, sharp, stabbing and nonradiating with nothing seeming to make the pain better or worse with pain lasting approximately 4 minutes. He then called to inform his daughter who then instructed him to activate EMS. He states he felt fine prior to retiring for the evening. His daughter informed the ER physician that he was already scheduled to have an outpatient NST and she was very concerned about taking him home prior to these tests being done. A review of his records shows he underwent an echocardiogram in 03/2024 for an indication of atrial fibrillation that revealed a LVEF ~65% with [id number] aortic valve stenosis with an ANA of ~1.29 cm? and mild mitral annular calcification with mild 1+ mitral valve regurgitation. He denies associated fever, chills, nausea, vomiting, diaphoresis, lower extremity or edema but he does admit to SOB at rest and ongoing hematuria that seems unchanged from previous - and his chest pain was noted to recur in the ER. In the ER he was noted to have a normal troponin of 8 pg/mL along with an EKG that showed NSR @ 87 bpm with first-degree AV block with RBBB and LAFB and no acute ischemic changes along with Leukocytosis of 17.5 K present on admission with UA pending at this time in the setting of ongoing Hematuria and suspected UTI. His CXR is unremarkable for acute pathologic changes. He was then admitted to the PCU under observation status for ongoing care for a stay that is expected to be less than 2 midnights. [facility] Medical History Dyspnea Diabetes Sleep apnea Atrial fibrillation Cancer Walker as ambulation aid Arthritis Bladder disease Prostate disease Complete edentulism, class III Gastric reflux CPAP (continuous positive airway pressure) dependence History of pain when walking History of edema History of echocardiogram History of stress test Cardiology follow-up encounter Blindness Bladder cancer Restrictive airway disease Morbid obesity Pneumonia due to COVID-19 virus Left lower lobe pneumonia Acute respiratory failure with hypoxia Wears hearing aid Wears glasses Insulin dependent diabetes mellitus Psoriasis High cholesterol Restless legs Back pain Injury of back Dietary restriction Former smoker Shortness of breath on exertion Hypertension Right bundle branch 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 Nonobstructive atherosclerosis of coronary artery Obesity BPH (benign prostatic hyperplasia) Hyperlipidemia Essential (primary) hypertension Atrial fibrillation with RVR (02/05/21) Home Medications ?Medication ?Instructions ?Recorded ?Last Taken ?Type simvastatin 40 mg tablet 40 mg PO QHS cholesterol 04/21/15 Unknown History apixaban 5 mg tablet (Eliquis) 5 mg PO BID #180 tabs 02/22/21 05/03/24 Rx aspirin 81 mg tablet,delayed 81 mg PO DAILY #90 tabs 02/22/21 04/30/24 Rx release carvedilol 25 mg tablet 25 mg PO BID #180 tabs 02/22/21 05/07/24 09:30 Rx losartan 100 1 tab PO DAILY 06/23/21 Unknown History mg-hydrochlorothiazide 12.5 mg tablet insulin lispro 100 unit/mL 26 unit subcut TID diabetes 10/24/21 Unknown History subcutaneous pen (Humalog KwikPen (U-100) Insulin) metformin 500 mg tablet,extended 1,000 mg PO BID 10/24/21 Unknown History release 24 hr albuterol sulfate 90 mcg/actuation 1 inh inhalation Q6H PRN SOB #8.5 11/30/21 Unknown Rx aerosol inhaler grams colestipol 1 gram tablet 1 g PO DAILY 01/30/22 Unknown History finasteride 5 mg tablet 5 mg PO DAILY 10/27/22 Unknown History NUVOFLEX 1 cap PO DAILY 09/22/23 Unknown History famotidine 20 mg tablet 20 mg PO BID 09/22/23 05/07/24 09:30 History insulin glargine 100 unit/mL (3 90 unit subcut QHS 09/22/23 Unknown History mL) subcutaneous pen (Basaglar KwikPen U-100 Insulin) flecainide 150 mg tablet 150 mg PO Q12H 10/24/23 05/07/24 09:30 History turmeric root extract 500 mg 1,000 mg PO DAILY 10/24/23 Unknown History capsule oxybutynin chloride 10 mg 15 mg PO DAILY 05/05/24 Unknown History tablet,extended release 24 hr diltiazem HCl 120 mg 120 mg PO DAILY 06/08/24 Unknown History capsule,extended release 24 hr (Cartia XT) Allergy/AdvReac Type Severity Reaction Status Date / Time amoxicillin Allergy Rash Verified 07/10/24 03:36 Family History Sister Colon cancer Brother Diabetes Mother Diabetes Heart disease Cancer Father Heart disease Cancer Diabetes Surgical History Hx of right cataract extraction Hx of colonoscopy Hx of transurethral resection of prostate H/O wrist surgery History of left heart catheterization (02/07/21) Hx of umbilical hernia repair Hx of cholecystectomy Status post surgical manipulation of ankle joint H/O hemorrhoidectomy Social History household members: spouse Smoking Status: Former smoker how long ago did patient quit smokin years ago alcohol intake: never substance use type: does not use caffeine: Yes Type: coffee Number of servings: 1 ROS ROS Narrative Review of Systems: Constitutional: Patient denies fever or chills. Eyes: Patient is blind in Left eye. ENT: Patient denies runny nose, sore throat or ear pain but he is ycjh-hw-kakbyts. Resp: Patient admits to SOB at rest but he denies cough. CV: Patient admits to chest pain as per HPI. He denies palpitations or heart racing. GI: Patient denies abdominal pain, nausea, vomiting, diarrhea or constipation. : Patient admits to chronic hematuria. MSK: Patient denies arthralgias or myalgias. Skin: Patient denies rash, abscess or jaundice. Psych: Patient denies symptoms of uncontrolled depression or anxiety. Neuro: Patient denies headache, paresthesias or focal neurologic deficits. Allergy: Patient denies lip swelling, tongue swelling or urticaria. Hematology: Patient admits to easy bleeding on Eliquis. Endocrinology: Patient denies polyuria, polydipsia and polyphagia. 14 point ROS otherwise negative except for positives noted above in HPI. Vital Signs Vital Signs Vital Signs: 07/10/24 03:36 07/10/24 03:40 07/10/24 04:02 Temperature 97.6 F L Temperature Source Oral Pulse Rate 87 Respiratory Rate 14 Respiratory Pattern Tachypnea Blood Pressure 153/73 H Blood Pressure Mean 99 Pulse Ox 90 Oxygen Delivery Method Room Air 07/10/24 04:47 Temperature Temperature Source Pulse Rate 87 Respiratory Rate 22 H Respiratory Pattern Blood Pressure 163/73 H Blood Pressure Mean 103 Pulse Ox 92 Oxygen Delivery Method Room Air Weight Weight: 304 lb 3.806 oz Body Mass Index (BMI) 40.1 Physical Exam Const alert, oriented x3 and no apparent distress Constitutional Narrative: Morbidly obese. General Appearance: cooperative HEENT normocephalic, head/scalp atraumatic, hearing grossly normal bilaterally and moist oral mucous membranes Eyes PERRL Eyes Narrative: Patient is blind in Left eye. Neck no lymphadenopathy and supple Resp normal respiratory effort, no retractions, no use of accessory muscles and clear to auscultation bilaterally Resp Narrative: Mildly labored respirations noted. Cardio regular rate and regular rhythm GI normal to inspection, nondistended, normoactive bowel sounds, soft to palpation, non-tender and non-distended GI Narrative: Morbidly obese. Extremity normal to inspection, full ROM and no clubbing, cyanosis or edema Skin Skin Narrative: Patient has no evidence of rash, abscess or jaundice. Neuro oriented x3, CN's II-XII intact bilaterally, moves all extremities and no focal motor deficits Sensorium / Orientation: awake, alert, oriented to person, oriented to place and oriented to time Speech: speech normal Psych affect normal Results Medical Records Data Attestation: I reviewed the patient's medical records Lab / Micro Data Attestation: I reviewed the patient's lab results. 07/10/24 03:40 07/10/24 03:40 Labs: Laboratory Results - last 24 hr 07/10/24 03:40: WBC 17.5 H, RBC 4.55 L, Hgb 12.5 L, Hct 39.2 L, MCV 86.2, MCH 27.5, MCHC 31.9 L, RDW Std Deviation 42.7, RDW Coeff of Lucia 13.7, Plt Count 255, MPV 11.3, Immature Gran % (Auto) 0.400, Neut % (Auto) 81.9 H, Lymph % (Auto) 7.5 L, [place]on % (Auto) 7.9, Eos % (Auto) 2.0, Baso % (Auto) 0.3, Absolute Neuts (auto) 14.3 H, Absolute Lymphs (auto) 1.31, Nucleated RBC % 0, Sodium 137, Potassium 3.8, Chloride 103, Carbon Dioxide 29.0, Anion Gap 5, BUN 27 H, Creatinine 1.24, Estim Creat Clear Calc 69.31, Est GFR (MDRD) Af Amer 72, Est GFR (MDRD) Non-Af 60, BUN/Creatinine Ratio 21.8 H, Glucose 152 H, Calcium 9.4, Troponin I High Sens 8, B-Natriuretic Peptide 54.9 Imaging Radiology Impression Chest X-Ray 07/10/24 04:00 IMPRESSION: Stable cardiomegaly. Interval development of slight blunting of the costophrenic angles suspicious for small pleural effusions. No pneumonia or pulmonary edema. Electronically Signed: Otis Bryan MD at 5:55 EDT , Assessment & Plan Assessment/Plan (1) Chest pain: QUALIFIERS: Chest pain type: unspecified Qualified Code(s): R07.9 - Chest pain, unspecified (2) Leukocytosis: QUALIFIERS: Leukocytosis type: unspecified Qualified Code(s): D72.829 - Elevated white blood cell count, unspecified (3) Acute cystitis with hematuria: (4) Adverse drug reaction: QUALIFIERS: Encounter type: initial encounter Qualified Code(s): T50.905A - Adverse effect of unspecified drugs, medicaments and biological substances, initial encounter (5) Morbid obesity with BMI of 40.0-44.9, adult: (6) Paroxysmal atrial fibrillation: (7) Right bundle branch 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: (8) Essential (primary) hypertension: PLAN: Plan 1. Chest Pain with a history of non-obstructive CAD and bzfc-vn-shgldfie aortic valve stenosis with an ANA of ~1.29 cm? and mild mitral annular calcification with mild 1+ mitral valve regurgitation on recent echocardiogram - Admit to PCU under observation status. Serialize troponin. Check Lexiscan NST in AM to evaluate for underlying ischemia. Give NTG SL prn for angina. Give Tylenol prn for [id number] (level 1-5/10) pain or fever. Give IV Morphine prn for severe (level 6-10/10) pain. Doubt PE with patient already on chronic Eliquis plus BASA. 2. Leukocytosis of 17.5 K present on admission with UA pending at this time complicating #1 in the setting of known BPH; s/p TURP and history of bladder cancer with chronic hematuria likely due to Adverse Drug Reaction to BASA and Plavix with suspected UTI - Patient started on empiric IV Azactam given his listed allergy to Amoxil and possible QT-prolongation concerns with coadministration of quinolones with flecainide. Hold Eliquis and BASA with active hematuria and check CT of abdomen and pelvis to evaluate for possible bladder mass. Stop Azactam if UA is negative with unremarkable CXR and no other obvious source of infection. We will consult urology of CT is suggestive of worsening bladder cancer. 3. History of GERD; with possible esophageal spasm triggering #1 - Continue famotidine as before plus give prn GI cocktail for breakthrough symptoms. 4. Morbid obesity; with BMI of 40.1 this admission plus CJ; on CPAP - Weight loss will be recommended. Resume nocturnal CPAP as previous. Check TSH. This complicates his case and may hamper his recovery. 5. PAF; on diltiazem, flecainide and Eliquis with a known history of LAFB with RBBB - Stable with patient currently in NSR. Hold Eliquis with hematuria but otherwise resume home regimen as previous. 6. Essential hypertension - Maintain current antihypertensive regimen plus give prn IV Hydralazine for systolic blood pressure > 160 mmHg. 7. Hyperlipidemia - Continue statin and check Lipid Profile in light of #1. 8. DM-2; of unknown control - ADA diet after NST. FSBS q. AC/HS plus SSI. Check HgbA1c to objectively assess quality of diabetic control. 9. Remote history of tobacco abuse; (quit 1975) - Noted. 10. History of RAD - Stable with no evidence of active issues at this time. Resume nebulizers prn. 11. History of COVID-19 pneumonia - Noted. 12. History of bladder cancer - Noted. 13. History of gross hematuria - Noted with no signs of recurrence. 14. Psoriasis - Noted. 15. RLS - Stable. 16. History of blindness in the Left eye - Noted. 17. OAB; on oxybutynin - Continue oxybutynin as before. 18. History of cholecystectomy - Noted. 19. History of umbilical hernia; s/p repair - Noted. 20. OA; with chronic back pain - Stable. Give Tylenol prn. 21. DVT prophylaxis - SCD's only with active hematuria. Total time: Approximately (but not less than) 75 minutes. Charges/Coding Visit Charges OBSV E&M: 11183 Observ/hosp same date L2
--- OUTSIDE RECORDS SUMMARY | 2024-07-10 06:37 | XMS RPT_ITS | CCD ---
Author Organization [facility] Care Team Providers Care Manager Human Resources Name Role Phone Jeff Virgen MD Primary Care Provider [facility], Keti Unavailable [facility], Kaitlyn Unavailable Jeff Virgen MD Primary Care Provider [facility], Kaitlyn Unavailable Jeff Virgen MD Primary Care Provider MELVIN BINGHAM Attending Unavailable JEFF VIRGEN Primary Care Unavailable [facility], Keti Unavailable [facility], Kaitlyn Unavailable JEFF VIRGEN Primary Care [...] (antibiotic) (2 sources) Amoxicillin Drug Allergy 05-11-2005 [facility] (20 sources) Amoxicillin; Translations: [AMOXICILLIN] Drug Allergy 05-11-2005 [facility] Medications Current Medications Medication Drug Class(es) Dates Sig (Normalized) Sig (Original) [id number] 200 actuat albuterol 0.09 mg/actuat metered dose [...] Comment on above: Take 1 capsule by [facility] once daily. doxycycline hyclate 100 mg oral [...] mouth every 12 hours. Prescribed by outside financing analyst 60 tablet 07/12/2023 Active Start: 10-10-2021 take 1 tablet by srikanth th every twelve hours flecainide (TAMBOCOR) 150 mg tablet Take 1 tablet by mouth every 12 hours. Prescribed by outside financing analyst 0 10/10/2021 Active Start: 10-10-2021 End: 02-03-2022 take 1 tablet by mouth twice daily flecainide (TAMBOCOR) 150 mg tablet Take 150 mg by mouth twice daily. 0 10/10/2021 02/03/2022 Discontinued (Course of therapy completed) Comment on above: Take 1 tablet by srikanth th every 12 hours. Prescribed by outside financing analyst Take 150 mg by mouth twice daily. [...] complication, with long-term current use of insulin ([facility]) Inject 20 Units subcutaneously three times a day before meals. 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] Onset: 02-15-2021 02-15-2021 Episodic Other aftercare (1 source) 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; Translations: [Chronic anticoagulation] Onset: 02-15-2021 Episodic Other aftercare (2 sources) 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; Translations: [Type 2 [...] Office Visit (SLEWST ) -------- FAISAL ALARCON ([id number]) 1945 M Date Time Provider Department 06/23/24 2:30 PM SUNNY DUVAL During your visit today, we recorded the following information about you: Pulse Respiration Blood pressure Weight 82/minute 18/minute 155/77 136 kg Sunny Duval APRN.CNP 06/23/2024 4:46 PM Signed [facility] New Patient Evaluation PATIENT NAME: Faisal Alarcon DATE OF SERVICE: June 22, 2024 CONSULTING PROVIDER: Osvaldo Travis [id number] [facility] [address] REASON FOR CONSULT: Osvaldo Travis sends the [...] day. Blood-Glucose Meter,Continuous (FREESTYLE JAMES 3 READER) [facility] Use to check blood sugar at least four (4) times daily. Uses insulin Blood-Glucose Sensor (FREESTYLE JAMES 3 PLUS SENSOR) sayra Apply new sensor every fifteen (15) days to upper arm. colestipol (COLESTID) 1 gram tablet Take 1 tablet (more content not included)... Normal [facility] Ema 06-23-2024 CA[place]ARN Telephone (FAMPWS) -------- FAISAL ALARCON ([id number]) 1945 M Date Time Provider Department 06/23/24 JEFF VIRGEN During your visit today, we recorded the following information about you: Kennedi Frey LPN 06/23/2024 2:07 PM Signed ----- Message from Julianna Hood sent at 06/23/2024 1:51 PM EDT ----- Your vitamin D level is very low. Please consider yrus-pdf-gzgcl vitamin D3-2000 units daily. Your white blood [...] to leave message or call back number. [employer]o message sent to pt, asking them to call back for results. JOSE ARMANDO Corrales M Robin, RN 06/24/2024 4:24 PM Signed Daughter returned call and given provider's message below with verbalized understanding. Daughter agreeable. Scheduled lab appt in 1 mth. Allergies As of Date: 06/23/2024 Noted Allergy Reaction AMOXICILLIN 05/11/2005 Comments: generalized erythema Date Reviewed: 06/23/2024 Reviewed by: Sunny Duval APRN.JIG GRINDER - Fully Assessed Reason for Visit: Results [95] Prescriptions as of 06/24/2024 - ELIQUIS 5 mg tab(s) Take 1 tablet by mouth two times a day. - Blood-Glucose Meter,Continuous (FREESTYLE JAMES 3 READER) [facility] Use to check blood sugar at least [...] times a day before meals. Getting through [facility] - dilTIAZem CD (CARDIZEM CD, CARTIA XT) [...] mouth every 12 hours. Prescribed by outside financing analyst - insulin glargine (BASAGLAR KWIKPEN U-100 INSULIN) [...] [J18.9] 09 (more content not included)... Normal [facility] 25(OH)[facility]3 [facility] 25-hydroxyvitamin D3 [Mass/Vol] 15.7 ng/mL Low 31.0-80.0 [facility] Comment on above: Order Comment: Speci men Type: BLOOD SPECIMENOrdering Facility: [facility] Address: [address] [place] [address] Result Comment: Clas sification of 25 OH Vitamin D status: Deficiency/Insufficiency: < or = 30 ng/ml. Sufficiency/Optimal Levels: 31-80 ng/mL Toxicity: > 100 ng/mL. Test performed by chemiluminescent immunoassay. Performed By: #### 1 989-3 ####[facility] LABCLIA [id number] [place] [address] [place] CBC W Auto Differential pane l (Bld)on 06-20-2024 Basophils (Bld) [#/Vol] 0.06 10*3/uL Normal <0.11 [facility] Comment on above: Order Comment: Speci men Type: BLOOD SPECIMENOrdering Facility: [facility] Address: [address] [place] [address] Performed By: #### 5 7021-8 ####[facility] LABCLIA [id number] [place] [address] [place] Basophils/100 WBC (Bld) 0.5 % Normal [facility] Comment on above: Order Comment: Speci men Type: BLOOD SPECIMENOrdering Facility: [facility] Address: [address] [place] [address] Performed By: #### 5 7021-8 ####[facility] LABIA [id number] [place] [address] [place] Differential cell count method Nom (Bld) Auto Normal [facility] Comment on above: Order Comment: Speci men Type: BLOOD SPECIMENOrdering Facility: [facility] Address: [address] [place] [address] Performed By: #### 5 7021-8 ####[facility] LABIA [id number] [place] [address] [place] Eosinophils (Bld) [#/Vol] 0.41 10*3/uL Normal <0.46 [facility] Comment on above: Order Comment: Speci men Type: BLOOD SPECIMENOrdering Facility: [facility] Address: [address] [place] [address] Performed By: #### 5 7021-8 ####[facility] LABCLIA [id number] [place] [address] [place] Eosinophils/100 WBC (Bld) 3.5 % Normal [facility] Comment on above: Order Comment: Speci men Type: BLOOD SPECIMENOrdering Facility: [facility] Address: [address] [place] [address] Performed By: #### 5 7021-8 ####[facility] LABIA [id number] [place] [address] [place] Erythrocyte distribution width (RBC) [Ratio] 13.7 % Normal 11.5-15.0 [facility] Comment on above: Order Comment: Speci men Type: BLOOD SPECIMENOrdering Facility: [facility] Address: [address] [place] [address] Performed By: #### 5 7021-8 ####[facility] LABIA [id number] [place] [address] [place] Hematocrit (Bld) [Volume fraction] 38.9 % Low 39.0-51.0 [facility] Comment on above: Order Comment: Speci men Type: BLOOD SPECIMENOrdering Facility: [facility] Address: [address] [place] [address] Performed By: #### 5 7021-8 ####[facility] LABIA [id number] [place] [address] [place] Hemoglobin (Bld) [Mass/Vol] 12.4 g/dL Low 13.0-17.0 [facility] Comment on above: Order Comment: Speci men Type: BLOOD SPECIMENOrdering Facility: [facility] Address: [address] [place] [address] Performed By: #### 5 7021-8 ####[facility] LABIA [id number] [place] [id number] [place] Immature granulocytes (Bld) [#/Vol] 0.05 10*3/uL Normal <0.10 [facility] Comment on above: Order Comment: Speci men Type: BLOOD SPECIMENOrdering Facility: [facility] Address: [address] [place] [address] Performed By: #### 5 7021-8 ####[facility] LABCLIA [id number] [place] [address] [place] Immature granulocytes/100 WBC (Bld) 0.4 % Normal [facility] Comment on above: Order Comment: Speci men Type: BLOOD SPECIMENOrdering Facility: [facility] Address: [address] [place] [address] Performed By: #### 5 7021-8 ####[facility] LABCLIA [id number] [place] [address] [place] Lymphocytes (Bld) [#/Vol] 1.53 10*3/uL Normal 1.00-4.00 [facility] Comment on above: Order Comment: Speci men Type: BLOOD SPECIMENOrdering Facility: [facility] Address: [address] [place] [address] Performed By: #### 5 7021-8 ####[facility] LABCLIA [id number] [place] [address] [place] Lymphocytes/100 WBC (Bld) 13.0 % Normal [facility] Comment on above: Order Comment: Speci men Type: BLOOD SPECIMENOrdering Facility: [facility] Address: [address] [place] [address] Performed By: #### 5 7021-8 ####[facility] LABCLIA [id number] [place] [address] [place] MCH (RBC) [Entitic mass] 27.7 pg Normal 26.0-34.0 [facility] Comment on above: Order Comment: Speci men Type: BLOOD SPECIMENOrdering Facility: [facility] Address: [address] [place] [address] Performed By: #### 5 7021-8 ####[facility] LABCLIA [id number] [place] [address] [place] MCHC (RBC) [Mass/Vol] 31.9 g/dL Normal 30.5-36.0 [facility] Comment on above: Order Comment: Speci men Type: BLOOD SPECIMENOrdering Facility: [facility] Address: [address] [place] [address] Performed By: #### 5 7021-8 ####[facility] LABIA [id number] [place] [address] [place] MCV (RBC) [Entitic vol] 86.8 fL Normal 80.0-100.0 [facility] Comment on above: Order Comment: Speci men Type: BLOOD SPECIMENOrdering Facility: [facility] Address: [address] [place] [address] Performed By: #### 5 7021-8 ####[facility] LABCLIA [id number] [place] [address] [place] Monocytes (Bld) [#/Vol] 1.41 10*3/uL High <0.87 [facility] Comment on above: Order Comment: Speci men Type: BLOOD SPECIMENOrdering Facility: [facility] Address: [address] [place] [address] Performed By: #### 5 7021-8 ####[facility] LABCLIA [id number] [place] [address] [place] Monocytes/100 WBC (Bld) 12.0 % Normal [facility] Comment on above: Order Comment: Speci men Type: BLOOD SPECIMENOrdering Facility: [facility] Address: [address] [place] [address] Performed By: #### 5 7021-8 ####[facility] LABCLIA [id number] [place] [address] [place] Neutrophils (Bld) [#/Vol] 8.29 10*3/uL High 1.45-7.50 [facility] Comment on above: Order Comment: Speci men Type: BLOOD SPECIMENOrdering Facility: [facility] Address: [address] [place] [address] Performed By: #### 5 7021-8 ####[facility] LABCLIA [id number] [place] [address] [place] Neutrophils/100 WBC (Bld) 70.6 % Normal [facility] Comment on above: Order Comment: Speci men Type: BLOOD SPECIMENOrdering Facility: [facility] Address: [address] [place] [address] Performed By: #### 5 7021-8 ####[facility] LABCLIA [id number] [place] [address] [place] Nucleated RBC (Bld) [#/Vol] 10*3/uL Normal <0.01 [facility] Comment on above: Order Comment: Speci men Type: BLOOD SPECIMENOrdering Facility: [facility] Address: [address] [place] [address] Performed By: #### 5 7021-8 ####[facility] LABCLIA [id number] [place] [address] [place] Nucleated RBC/100 WBC (Bld) [Ratio] 0.0 /100 WBC Normal [facility] Comment on above: Order Comment: Speci men Type: BLOOD SPECIMENOrdering Facility: [facility] Address: [address] [place] [address] Performed By: #### 5 7021-8 ####[facility] LABCLIA [id number] [place] [address] [place] Platelet mean volume (Bld) [Entitic vol] 11.1 fL Normal 9.0-12.7 [facility] Comment on above: Order Comment: Speci men Type: BLOOD SPECIMENOrdering Facility: [facility] Address: [address] [place] [address] Performed By: #### 5 7021-8 ####[facility] LABIA [id number] [place] [address] [place] Platelets (Bld) [#/Vol] 294 10*3/uL Normal 150-400 [facility] Comment on above: Order Comment: Speci men Type: BLOOD SPECIMENOrdering Facility: [facility] Address: [address] [place] [address] Performed By: #### 5 7021-8 ####[facility] LABIA [id number] [place] [address] [place] RBC (Bld) [#/Vol] 4.48 10*6/uL Normal 4.20-6.00 [facility] Comment on above: Order Comment: Speci men Type: BLOOD SPECIMENOrdering Facility: [facility] Address: [address] [place] [address] Performed By: #### 5 7021-8 ####[facility] [id number] [place] [address] [place] WBC (Bld) [#/Vol] 11.75 10*3/uL High 3.70-11.00 [facility] Comment on above: Order Comment: Speci men Type: BLOOD SPECIMENOrdering Facility: [facility] Address: [address] [place] [address] Performed By: #### 5 7021-8 ####[facility] LABIA [id number] [place] [address] [place] CK SerPl-cCncon 06-20-2024 CK [Catalytic activity/Vol] 164 U/L Normal 51-298 [facility] Comment on above: Order Comment: Speci men Type: BLOOD SPECIMENOrdering Facility: [facility] Address: [address] [place] [address] Performed By: #### 3 016-3, 2157-6 ####[facility] RADHA [id number] [id number] [id number] [facility] [place] CNOVon 06-20-2024 CNOV Office Visit (FAMPWS ) -------- FAISAL ALARCON ([id number]) 1945 M Date Time Provider Department 06/20/24 3:40 PM [facility] During your visit today, we recorded the [...] Free style james script needs sent through [employer] He is wanting us to send his [...] mouth every 12 hours. Prescribed by outside financing analyst No current facility-administered medications for this visit. [...] BX FOR (more content not included)... Normal [facility] TSH SerPl-aCncon 06-20-2024 TSH Qn 1.840 m[IU]/L Normal 0.270-4.200 [facility] Comment on above: Order Comment: Speci men Type: BLOOD SPECIMENOrdering Facility: [facility] Address: [address] [place] [id number] Performed By: #### 3 016-3, 2157-6 ####[facility] LABNATALIIA [id number] [id number] [id number] [place] Ema 06-18-2024 CNPN [facility] FAISAL ALARCON ([id number]) 1945 M Date Time Provider Department 06/18/24 JEFF VIRGEN [facility] During your visit today, we recorded the following information about you: Angelina Bliss RN 06/18/2024 4:31 PM Signed Patient's daughter Loan Brooks calling and requesting to speak specifically with PCP nurse, Anthony. This is in regard to patient's scooter and pt's insurance. Loan [phone]. Thank you. Anthony Henley LPN 06/20/2024 11:24 AM Signed Patient has visit today. Clinical staff can follow up with daughter at visit. Anthony Henley LPN 06/25/2024 3:34 PM Signed As of today order for scooter and last OV was faxed to [employer]. Allergies As of Date: 06/18/2024 Noted Allergy Reaction AMOXICILLIN 05/11/2005 Comments: generalized erythema Date Reviewed: 04/12/2024 Reviewed by: Izzy Vargas, NILDA - Fully Assessed Reason for Visit: Patient Question [2087] Prescriptions as of 06/25/2024 - ELIQUIS 5 mg tab(s) Take 1 tablet by mouth two times a day. - Blood-Glucose Meter,Continuous (FREESTYLE JAMES 3 READER) [facility] Use to check blood sugar at least [...] times a day before meals. Getting through [facility] - dilTIAZem CD (CARDIZEM CD, CARTIA XT) [...] mouth every 12 hours. Prescribed by outside financing analyst - insulin glargine (BASAGLAR KWIKPEN U-100 INSULIN) [...] Diagnosed: 06/06/20 (more content not included)... Normal [facility] CNPNon 06-17-2024 [facility] ([facility]) -------- FAISAL ALARCON ([id number]) 1945 Date Time Provider Department 06/17/24 JEFF VIRGEN [facility] During your visit today, we recorded the following information about you: Kennedi Frey LPN 06/17/2024 10:15 AM Signed Received a call from Alison with [facility]. PH: [phone]. She reports receiving information on a scooter. Alison reports this has to go thru pt's [employer] company and they will fax all information with details to [facility] for [place] to be done. I called daughter Loan and she reports they are using [employer] fax:[phone] PH: [phone] Spoke with [employer] and after they received the fax they will go thru it and send forms to be filled out and once those have been returned they will send to [facility] for [facility] . Information fas been [...] times a day before meals. Getting through [facility] - dilTIAZem CD (CARDIZEM CD, CARTIA XT) [...] mouth every 12 hours. Prescribed by outside financing analyst - insulin glargine (BASAGLAR KWIKPEN U-100 INSULIN) [...] dehydration [E (more content not included)... Normal [facility] Comprehensive metabolic 2000 panelon 06-11-2024 Albumin [Mass/Vol] 3.9 g/dL Normal 3.9-4.9 [facility] Comment on above: Order Comment: Speci men Type: BLOOD SPECIMENOrdering Facility: [facility] Address: [address] [place] [address] Performed By: #### 2 4323-8 ####[facility] LABCLIA [id number] [place] [address] [place] ALP [Catalytic activity/Vol] 81 U/L Normal 38-113 [facility] Comment on above: Order Comment: Speci men Type: BLOOD SPECIMENOrdering Facility: [facility] Address: [address] [place] [address] Performed By: #### 2 4323-8 ####[facility] LABCLIA [id number] [place] [address] [place] ALT [Catalytic activity/Vol] 23 U/L Normal 10-54 [facility] Comment on above: Order Comment: Speci men Type: BLOOD SPECIMENOrdering Facility: [facility] Address: [address] [place] [address] Performed By: #### 2 4323-8 ####[facility] LABCLIA [id number] [place] [address] [place] Anion gap [Moles/Vol] 15 mmol/L Normal 8-15 [facility] Comment on above: Order Comment: Speci men Type: BLOOD SPECIMENOrdering Facility: [facility] Address: [address] [place] [address] Performed By: #### 2 4323-8 ####[facility] LABCLIA [id number] [place] [address] [place] AST [Catalytic activity/Vol] 26 U/L Normal 14-40 [facility] Comment on above: Order Comment: Speci men Type: BLOOD SPECIMENOrdering Facility: [facility] Address: [address] [place] [address] Performed By: #### 2 4323-8 ####[facility] LABCLIA [id number] [place] [address] [place] Bilirubin [Mass/Vol] mg/dL Low 0.2-1.3 [facility] Comment on above: Order Comment: Speci men Type: BLOOD SPECIMENOrdering Facility: [facility] Address: [address] [place] [address] Performed By: #### 2 4323-8 ####[facility] LABCLIA [id number] [place] [address] [place] Calcium [Mass/Vol] 9.8 mg/dL Normal 8.5-10.2 [facility] Comment on above: Order Comment: Speci men Type: BLOOD SPECIMENOrdering Facility: [facility] Address: [address] [place] [address] Performed By: #### 2 4323-8 ####[facility] LABCLIA [id number] [place] [address] [place] Chloride [Moles/Vol] 98 mmol/L Normal 98-107 [facility] Comment on above: Order Comment: Speci men Type: BLOOD SPECIMENOrdering Facility: [facility] Address: [address] [place] [address] Performed By: #### 2 4323-8 ####[facility] LABCLIA [id number] [place] [address] [place] CO2 [Moles/Vol] 20 mmol/L Low 22-30 [facility] Comment on above: Order Comment: Speci men Type: BLOOD SPECIMENOrdering Facility: [facility] Address: [address] [place] [address] Performed By: #### 2 4323-8 ####[facility] LABCLIA [id number] [place] [address] [place] Creatinine [Mass/Vol] 1.19 mg/dL Normal 0.73-1.22 [facility] Comment on above: Order Comment: Speci men Type: BLOOD SPECIMENOrdering Facility: [facility] Address: [address] [place] [address] Performed By: #### 2 4323-8 ####[facility] LABIA [id number] [place] [address] [place] Creatinine and Glomerular filtration rate.predicted panel (S/P/Bld) 62 mL/min/1.73m??? Normal >=60 [facility] Comment on above: Order Comment: Speci men Type: BLOOD SPECIMENOrdering Facility: [facility] Address: [address] [place] [address] Result Comment: Racquel mated Glomerular Filtration Rate [...] actual GFR. Performed By: #### 2 4323-8 ####[facility] LABCLIA [id number] [place] [address] [place] Glucose [Mass/Vol] 169 mg/dL High 74-99 [facility] Comment on above: Order Comment: Speci men Type: BLOOD SPECIMENOrdering Facility: [facility] Address: [address] [place] [address] Result Comment: The [place] [employer] Association (ADA) provides guidance for cutoff [...] Standards of Medical Care in Diabetes 2016, [place] [employer]. Diabetes Care. 2016.39(Suppl 1). Performed By: #### 2 4323-8 ####[facility] LABCLIA [id number] [place] [address] [place] Potassium [Moles/Vol] 4.8 mmol/L Normal 3.7-5.1 [facility] Comment on above: Order Comment: Speci men Type: BLOOD SPECIMENOrdering Facility: [facility] Address: [address] [place] [address] Performed By: #### 2 4323-8 ####[facility] LABCLIA [id number] [place] [address] [place] Protein [Mass/Vol] 7.4 g/dL Normal 6.3-8.0 [facility] Comment on above: Order Comment: Speci men Type: BLOOD SPECIMENOrdering Facility: [facility] Address: [address] [place] [address] Performed By: #### 2 4323-8 ####[facility] LABCLIA [id number] [place] [address] [place] Sodium [Moles/Vol] 133 mmol/L Low 136-144 [facility] Comment on above: Order Comment: Speci men Type: BLOOD SPECIMENOrdering Facility: [facility] Address: [address] [place] [address] Performed By: #### 2 4323-8 ####[facility] [id number] [place] [address] [place] Urea nitrogen [Mass/Vol] 28 mg/dL High 9-24 [facility] Comment on above: Order Comment: Speci men Type: BLOOD SPECIMENOrdering Facility: [facility] Address: [address] [place] [address] Performed By: #### 2 4323-8 ####[facility] [id number] [place] [address] [place] HbA1c (Bld)on 06-11-2024 Average glucose Estimated from glycated hemoglobin (Bld) [Mass/Vol] 166 mg/dL Normal [facility] Comment on above: Order Comment: Speci men Type: BLOOD SPECIMENOrdering Facility: [facility] Address: [address] [place] [address] Result Comment: eAG: (Estimated average glucose) is a calculated value from HgbA1c and is sales training representative of the average blood glucose level in the last 2-3 month period. Performed By: #### 5 5454-3 ####[facility] [id number] [place] [address] [place] HbA1c (Bld) [Mass fraction] 7.4 % High 4.3-5.6 [facility] Comment on above: Order Comment: Speci men Type: BLOOD SPECIMENOrdering Facility: [facility] Address: [address] [place] [address] Result Comment: Amer ican Diabetes Association guidelines indicate that patients with HgbA1c in the range 5.7-6.4% are at increased risk for development of diabetes, and intervention by lifestyle modification may be beneficial. HgbA1c greater or equal to 6.5% is considered diagnostic of diabetes. Performed By: #### 5 5454-3 ####[facility] [id number] [place] [address] [place] CNOVon 05-31-2024 CNOV Office Visit (UCWSTR ) -------- FAISAL ALARCON ([id number]) 1945 Date Time Provider Department 05/31/24 9:[address] [facility] During your visit today, we recorded the following information about you: Amairani Mcclendon APRN.JIG GRINDER 05/31/2024 8:58 AM Signed Patient came in [...] times a day before meals. Getting through [facility] - dilTIAZem CD (CARDIZEM CD, CARTIA XT) [...] mouth every 12 hours. Prescribed by outside financing analyst - colestipol (COLESTID) 1 gram tablet Take [...] Diagnosed: 06/06/2023 (more content not included)... Normal [facility] HBA1C (OUTSIDE)on 05-07-2024 HbA1c (Bld) [Mass fraction] 7.2 % [facility] Basic metabolic 2000 panelon 04-12-2024 Anion gap [Moles/Vol] 14 mmol/L Normal 8-15 [facility] Comment on above: Order Comment: Speci men Type: BLOOD SPECIMEN [facility] Address: [address] [place] [address] Performed By: #### 2 4321-2 #### [facility] CLIA [id number] 1 [place] [address] [place] Calcium [Mass/Vol] 9.6 mg/dL Normal 8.5-10.2 [facility] Comment on above: Order Comment: Speci men Type: BLOOD SPECIMEN [facility] Address: [address] [place] [address] Performed By: #### 2 4321-2 #### [facility] CLIA [id number] 1 [place] [address] [place] Chloride [Moles/Vol] 97 mmol/L Low 98-107 [facility] Comment on above: Order Comment: Speci men Type: BLOOD SPECIMEN [facility] Address: [address] [place] [address] Performed By: #### 2 4321-2 #### [facility] CLIA [id number] 1 [place] [address] [place] CO2 [Moles/Vol] 22 mmol/L Normal 22-30 [facility] Comment on above: Order Comment: Speci men Type: BLOOD SPECIMEN [facility] Address: [address] [place] [address] Performed By: #### 2 4321-2 #### [facility] CLIA [id number] 1 [place] [address] [place] Creatinine [Mass/Vol] 1.10 mg/dL Normal 0.73-1.22 [facility] Comment on above: Order Comment: Kayycj de la rosa Type: BLOOD SPECIMEN [facility] Address: [address] [place] [address] Performed By: #### 2 4321-2 #### [facility] CLIA [id number] [address] [place] Creatinine and Glomerular filtration rate.predicted panel (S/P/Bld) 68 mL/min/1.73m??? Normal >=60 [facility] Comment on above: Order Comment: Salvatore estrella Type: BLOOD SPECIMEN [facility] Address: [address] [place] [address] Result Comment: Racquel mated Glomerular Filtration Rate [...] GFR. Performed By: #### 2 4321-2 #### [facility] CLIA [id number] [address] [place] [address] [place] Glucose [Mass/Vol] 199 mg/dL High 74-99 [facility] Comment on above: Order Comment: Salvatore de la rosa Type: BLOOD SPECIMEN [facility] Address: [address] [place] [address] Result Comment: The [place] Diabetes Association (ADA) provides guidance for cutoff [...] Standards of Medical Care in Diabetes 2016, [place] Diabetes Association. Diabetes Care. 2016.39(Suppl 1). Performed By: #### 2 4321-2 #### [facility] CLIA [id number] 1 [place] [address] [place] Potassium [Moles/Vol] 4.2 mmol/L Normal 3.7-5.1 [facility] Comment on above: Order Comment: Speci men Type: BLOOD SPECIMEN [facility] Address: [address] [place] [address] Performed By: #### 2 4321-2 #### [facility] CLIA [id number] [address] [place] Sodium [Moles/Vol] 133 mmol/L Low 136-144 [facility] Comment on above: Order Comment: Speci men Type: BLOOD SPECIMEN [facility] Address: [address] [place] [address] Performed By: #### 2 4321-2 #### [facility] CLIA [id number] [address] [place] Urea nitrogen [Mass/Vol] 27 mg/dL High 9-24 [facility] Comment on above: Order Comment: Speci men Type: BLOOD SPECIMEN [facility] Address: [address] [place] [address] Performed By: #### 2 4321-2 #### [facility] CLIA [id number] [address] [place] CBC W Auto Differential pane l (Bld)on 04-12-2024 Basophils (Bld) [#/Vol] 0.06 10*3/uL Normal <0.11 [facility] Comment on above: Order Comment: Speci men Type: BLOOD SPECIMEN [facility] Address: [address] [place] [address] Performed By: #### 5 7021-8 #### [facility] CLIA [id number] [address] [place] Basophils/100 WBC (Bld) 0.5 % Normal [facility] Comment on above: Order Comment: Speci men Type: BLOOD SPECIMEN [facility] Address: [address] [place] [address] Performed By: #### 5 7021-8 #### [facility] CLIA [id number] [address] Differential cell count method Nom (Bld) Auto Normal [facility] Comment on above: Order Comment: Speci men Type: BLOOD SPECIMEN [facility] Address: [address] [place] [address] Performed By: #### 5 7021-8 #### [facility] CLIA [id number] [address] [place] Eosinophils (Bld) [#/Vol] 0.39 10*3/uL Normal <0.46 [facility] Comment on above: Order Comment: Speci men Type: BLOOD SPECIMEN [facility] Address: [address] [place] [address] Performed By: #### 5 7021-8 #### [facility] CLIA [id number] [address] Eosinophils/100 WBC (Bld) 3.2 % Normal [facility] Comment on above: Order Comment: Speci men Type: BLOOD SPECIMEN [facility] Address: [address] [place] [address] Performed By: #### 5 7021-8 #### [facility] CLIA [id number] [address] Erythrocyte distribution width (RBC) [Ratio] 13.3 % Normal 11.5-15.0 [facility] Comment on above: Order Comment: Speci men Type: BLOOD SPECIMEN [facility] Address: [address] [place] [address] Performed By: #### 5 7021-8 #### [facility] CLIA [id number] [address] [place] Hematocrit (Bld) [Volume fraction] 40.6 % Normal 39.0-51.0 [facility] Comment on above: Order Comment: Speci men Type: BLOOD SPECIMEN [facility] Address: [address] [place] [address] Performed By: #### 5 7021-8 #### [facility] CLIA [id number] [address] [place] Hemoglobin (Bld) [Mass/Vol] 13.4 g/dL Normal 13.0-17.0 [facility] Comment on above: Order Comment: Speci men Type: BLOOD SPECIMEN [facility] Address: [address] [place] [address] Performed By: #### 5 7021-8 #### [facility] CLIA [id number] [address] [place] Immature granulocytes (Bld) [#/Vol] 0.05 10*3/uL Normal <0.10 [facility] Comment on above: Order Comment: Speci men Type: BLOOD SPECIMEN [facility] Address: [address] [place] [address] Performed By: #### 5 7021-8 #### [facility] CLIA [id number] [address] [place] Immature granulocytes/100 WBC (Bld) 0.4 % Normal [facility] Comment on above: Order Comment: Speci men Type: BLOOD SPECIMEN [facility] Address: [address] [place] [address] Performed By: #### 5 7021-8 #### [facility] CLIA [id number] [address] [place] Lymphocytes (Bld) [#/Vol] 2.34 10*3/uL Normal 1.00-4.00 [facility] Comment on above: Order Comment: Speci men Type: BLOOD SPECIMEN [facility] Address: [address] [place] [address] Performed By: #### 5 7021-8 #### [facility] CLIA [id number] [address] [place] Lymphocytes/100 WBC (Bld) 19.1 % Normal [facility] Comment on above: Order Comment: Speci men Type: BLOOD SPECIMEN [facility] Address: [address] [place] [address] Performed By: #### 5 7021-8 #### [facility] CLIA [id number] [address] MCH (RBC) [Entitic mass] 28.4 pg Normal 26.0-34.0 [facility] Comment on above: Order Comment: Speci men Type: BLOOD SPECIMEN [facility] Address: [address] [place] [address] Performed By: #### 5 7021-8 #### [facility] CLIA [id number] [address] MCHC (RBC) [Mass/Vol] 33.0 g/dL Normal 30.5-36.0 [facility] Comment on above: Order Comment: Speci men Type: BLOOD SPECIMEN [facility] Address: [address] [place] [address] Performed By: #### 5 7021-8 #### [facility] CLIA [id number] [address] MCV (RBC) [Entitic vol] 86.0 fL Normal 80.0-100.0 [facility] Comment on above: Order Comment: Speci men Type: BLOOD SPECIMEN [facility] Address: [address] [place] [address] Performed By: #### 5 7021-8 #### [facility] CLIA [id number] [address] Monocytes (Bld) [#/Vol] 1.38 10*3/uL High <0.87 [facility] Comment on above: Order Comment: Speci men Type: BLOOD SPECIMEN [facility] Address: [address] [place] [address] Performed By: #### 5 7021-8 #### [facility] CLIA [id number] [address] [place] Monocytes/100 WBC (Bld) 11.3 % Normal [facility] Comment on above: Order Comment: Speci men Type: BLOOD SPECIMEN [facility] Address: [address] [place] [address] Performed By: #### 5 7021-8 #### [facility] CLIA [id number] [address] [place] Neutrophils (Bld) [#/Vol] 8.02 10*3/uL High 1.45-7.50 [facility] Comment on above: Order Comment: Speci men Type: BLOOD SPECIMEN [facility] Address: [address] [place] [address] Performed By: #### 5 7021-8 #### [facility] CLIA [id number] [address] Neutrophils/100 WBC (Bld) 65.5 % Normal [facility] Comment on above: Order Comment: Speci men Type: BLOOD SPECIMEN [facility] Address: [address] [place] [address] Performed By: #### 5 7021-8 #### [facility] CLIA [id number] [address] [place] Nucleated RBC (Bld) [#/Vol] 10*3/uL Normal <0.01 [facility] Comment on above: Order Comment: Speci men Type: BLOOD SPECIMEN [facility] Address: [address] [place] [address] Performed By: #### 5 7021-8 #### [facility] CLIA [id number] [address] [place] Nucleated RBC/100 WBC (Bld) [Ratio] 0.0 /100 WBC Normal [facility] Comment on above: Order Comment: Speci men Type: BLOOD SPECIMEN [facility] Address: [address] [place] [address] Performed By: #### 5 7021-8 #### [facility] CLIA [id number] [address] Platelet mean volume (Bld) [Entitic vol] 10.7 fL Normal 9.0-12.7 [facility] Comment on above: Order Comment: Speci men Type: BLOOD SPECIMEN [facility] Address: [address] [place] [address] Performed By: #### 5 7021-8 #### [facility] CLIA [id number] [address] Platelets (Bld) [#/Vol] 268 10*3/uL Normal 150-400 [facility] Comment on above: Order Comment: Speci men Type: BLOOD SPECIMEN [facility] Address: [address] [place] [address] Performed By: #### 5 7021-8 #### [facility] CLIA [id number] [address] RBC (Bld) [#/Vol] 4.72 10*6/uL Normal 4.20-6.00 [facility] Comment on above: Order Comment: Speci men Type: BLOOD SPECIMEN [facility] Address: [address] [place] [address] Performed By: #### 5 7021-8 #### [facility] CLIA [id number] [address] WBC (Bld) [#/Vol] 12.24 10*3/uL High 3.70-11.00 [facility] Comment on above: Order Comment: Speci men Type: BLOOD SPECIMEN [facility] Address: [address] [place] [address] Performed By: #### 5 7021-8 #### [facility] CLIA [id number] [address] ED PROV NOTEon 04-12-2024 ED PROV NOTE HNO ID: [id number] Author: MELVIN BINGHAM MD Service: Emergency Medicine [...] having hematuria since Sunday- was seen in [place] [facility] and urologist this week. Pt states [...] He went to the emergency department in [place] and was told to follow-up with urology outpatient. Patient had urology appointment in [place] on of this past week who planned for cystoscopy on April 29. They were told that if he had any new symptoms to go to the emergency department. Patient went back to the emergency department in [place] where they performed lab work that was negative for anemia. The patient is now reporting continued dizziness and headache. Patient inquiring if they can see urology for cystoscopy on a more urgent basis here at [facility]. Patient is well appearing in no [...] Diagnostic Testi (more content not included)... Normal [facility] Urinalysis complete panel (U )on 04-12-2024 Bacteria LM.HPF (Urine sed) [#/Area] Few Abnormal None Seen [facility] Comment on above: Order Comment: Speci men Type: URINE SPECIMEN [facility] Address: [address] [place] [address] Performed By: #### 2 4356-8 #### [facility] CLIA [id number] [address] Bilirubin Ql (U) 1+ Abnormal Negative [facility] Comment on above: Order Comment: Speci men Type: URINE SPECIMEN [facility] Address: [address] [place] [address] Result Comment: Sugg est correlation with clinical findings and serum bilirubin if clinically indicated. Performed By: #### 2 4356-8 #### [facility] CLIA [id number] [address] [facility] Clarity (Unsp spec) Cloudy Abnormal Clear [facility] Comment on above: Order Comment: Speci men Type: URINE SPECIMEN [facility] Address: [facility] [place] [address] Performed By: #### 2 4356-8 #### [facility] CLIA [id number] [address] Color (U) Yellow Normal Yellow [facility] Comment on above: Order Comment: Speci men Type: URINE SPECIMEN [facility] Address: [address] [place] [address] Performed By: #### 2 4356-8 #### [facility] CLIA [id number] [address] Glucose Test strip (U) [Mass/Vol] Trace Abnormal Negative [facility] Comment on above: Order Comment: Speci men Type: URINE SPECIMEN [facility] Address: [address] [place] [address] Performed By: #### 2 4356-8 #### [facility] CLIA [id number] [address] Hemoglobin Ql (U) 3+ Abnormal Negative [facility] Comment on above: Order Comment: Speci men Type: URINE SPECIMEN [facility] Address: [address] [place] [address] Performed By: #### 2 4356-8 #### [facility] CLIA [id number] [address] Ketones Ql (U) Trace Abnormal Negative [facility] Comment on above: Order Comment: Speci men Type: URINE SPECIMEN [facility] Address: [address] [place] [address] Performed By: #### 2 4356-8 #### [facility] CLIA [id number] [address] Leukocyte esterase Test strip Ql (U) Negative Normal Negative [facility] Comment on above: Order Comment: Speci men Type: URINE SPECIMEN [facility] Address: [address] [place] [address] Performed By: #### 2 4356-8 #### [facility] CLIA [id number] [address] [place] Nitrite Ql (U) Negative Normal Negative [facility] Comment on above: Order Comment: Speci men Type: URINE SPECIMEN [facility] Address: [address] [place] [address] Performed By: #### 2 4356-8 #### [facility] CLIA [id number] [address] pH (U) 6.0 [pH] Normal 5.0-8.0 [facility] Comment on above: Order Comment: Speci men Type: URINE SPECIMEN [facility] Address: [address] [place] [address] Performed By: #### 2 4356-8 #### [facility] CLIA [id number] [address] Protein (U) [Mass/Vol] 1+ Abnormal Negative [facility] Comment on above: Order Comment: Speci men Type: URINE SPECIMEN [facility] Address: [address] [place] [address] Performed By: #### 2 4356-8 #### [facility] CLIA [id number] [address] RBC LM.HPF (Urine sed) [#/Area] /[HPF] Abnormal 0-3 /HPF [facility] Comment on above: Order Comment: Speci men Type: URINE SPECIMEN [facility] Address: [address] [place] [address] Performed By: #### 2 4356-8 #### [facility] CLIA [id number] [address] Specific gravity (U) [Rel density] >=1.030 High 1.005-1.030 [facility] Comment on above: Order Comment: Speci men Type: URINE SPECIMEN [facility] Address: [address] [place] [address] Performed By: #### 2 4356-8 #### [facility] CLIA [id number] [address] Urobilinogen Ql (U) 0.2 EU/dL Normal 0.2 EU/d L, 1.0 EU/dL [facility] Comment on above: Order Comment: Speci men Type: URINE SPECIMEN [facility]: [address] [facility] [place] [address] Performed By: #### 2 4356-8 #### [facility] CLIA [id number] [address] WBC LM.HPF (Urine sed) [#/Area] 6-10 /HPF Abnormal 0-5 /HPF [facility] Comment on above: Order Comment: Speci men Type: URINE SPECIMEN [facility] Address: [address] [place] [address] Performed By: #### 2 4356-8 #### [facility] CLIA [id number] [address] CNOVon 04-09-2024 CNOV Office Visit (UCWSTR ) -------- FAISAL ALARCON ([id number]) 1945 M Date Time Provider Department 04/09/24 2:[address] [facility] During your visit today, we recorded the following information about you: Temperature Pulse Respiration Blood pressure 98.8 degrees 94/minute 20/minute 128/84 Weight 140.6 kg Andrew Guallpa, PAIGE.JIG GRINDER 04/09/2024 2:44 PM Signed Subjective HPI Nontoxic-appearing [...] times a day before meals. Getting through [facility] dilTIAZem CD (CARDIZEM CD, CARTIA XT) [...] mouth every 12 hours. Prescribed by outside financing analyst colestipol (COLESTID) 1 gram tablet Take 1 [...] (98.8 ?F (more content not included)... Normal [facility] FAISAL ALARCON ([id number]) 1945 M Date Time Provider Department 03/21/24 [...] [I83.893] Order(s):VAIROX W ZIP KNEE HI 30-40WT [[id number]] Order #: [id number] CONSULT TO LYMPHEDEMA THERAPY [[id number]] Order #: [id number]: 1 FUTURE Prescriptions as of 03/21/2024 - [...] times a day before meals. Getting through [facility] - dilTIAZem CD (CARDIZEM CD, CARTIA XT) [...] mouth every 12 hours. Prescribed by outside financing analyst - colestipol (COLESTID) 1 gram tablet Take [...] breath) [R (more content not included)... Normal [facility] Ema 03-19-2024 [facility] Telephone (FAMPWS) -------- ESHAFAISAL Huitron ([id number]) 1945 Date Time Provider Department 03/19/24 Osvaldo [...] up from 13 mmHg. He follows with [facility]: please have him follow up with them in next few months and please have the echo sent there for them to review. Thanks, JERMAINE Godinez M Robin, NILDA 03/19/2024 8:20 AM Signed Phoned patient and given provider's message below. Patient reports [place] and asked this nurse to call his [...] times a day before meals. Getting through [facility] - dilTIAZem CD (CARDIZEM CD, CARTIA XT) [...] mouth every 12 hours. Prescribed by outside financing analyst - colestipol (COLESTID) 1 gram tablet Take [...] anticoagulation [Z79.0 (more content not included)... Normal [facility] VENOUS INCOMPETENCY JABARI V LABon 03-19-2024 VENOUS INCOMPETENCY JABARI VAS LAB Non-Invasive Vascular Laboratory [facility] Venous Valvular Incompetency Bilateral/Complete Date of service/time: [...] calf Augmentation reflux none. Size 0.26 cm. Green End Worker vein distal calf Augmentation reflux none. Valsalva [...] calf Augmentation reflux none. Size 0.28 cm. Green End Worker vein distal calf Augmentation reflux none. Valsalva [...] small saphenous vein. Technologist: Chrissy Mireles RVT, [place] Ordering physician: Osvaldo TRAVIS Interpreting physician: Italo Neil MD, RPVI Final CC [facility] Image : [id number] ID See Link below for Image Normal [facility] ECHOon 03-17-2024 Echocardiography Echocardiography Rep ort: Transthoracic Echo [facility] Date of service: 03/17/2024 2:48:35 PM [employer] Ordering physician: Osvaldo TRAVIS Indication: Atrial fibrallation Technologist: Reanna Corcoran RD Interpreting physician: Halle Lake MD PATIENT: Name: MR. FAISAL WAITEN: [id number] : 1945 Age: 78 years Gender: M [...] * * * Final * * * [facility] : [id number] [facility] Basic metabolic 2000 panelon 02-28-2024 Anion gap [Moles/Vol] 13 mmol/L Normal 8-15 [facility] Comment on above: Order Comment: Speci men Type: BLOOD SPECIMENOrdering Facility: [facility] Address: [address] [place] [address] Performed By: #### 2 4321-2, 53728-0 ####[facility] LABCLIA [id number] [place] [address] [place] Calcium [Mass/Vol] 10.0 mg/dL Normal 8.5-10.2 [facility] Comment on above: Order Comment: Speci men Type: BLOOD SPECIMENOrdering Facility: [facility] Address: [address] [place] [address] Performed By: #### 2 4321-2, 35538-9 ####[facility] LABCLIA [id number] [place] [address] [place] Chloride [Moles/Vol] 99 mmol/L Normal 98-107 [facility] Comment on above: Order Comment: Speci men Type: BLOOD SPECIMENOrdering Facility: [facility] Address: [address] [place] [address] Performed By: #### 2 4321-2, 65890-7 ####[facility] LABCLIA [id number] [place] [address] [place] CO2 [Moles/Vol] 22 mmol/L Normal 22-30 [facility] Comment on above: Order Comment: Speci men Type: BLOOD SPECIMENOrdering Facility: [facility] Address: [address] [place] [address] Performed By: #### 2 4321-2, 95692-1 ####[facility] LABCLIA [id number] [place] [address] [place] Creatinine [Mass/Vol] 1.04 mg/dL Normal 0.73-1.22 [facility] Comment on above: Order Comment: Salvatore de la rosa Type: BLOOD SPECIMENOrdering Facility: [facility] Address: [address] [place] [address] Performed By: #### 2 4321-2, 73656-9 ####[facility] LABCLIA [id number] [place] [address] [place] Creatinine and Glomerular filtration rate.predicted panel (S/P/Bld) 73 mL/min/1.73m??? Normal >=60 [facility] Comment on above: Order Comment: Salvatore de la rosa Type: BLOOD SPECIMENOrdering Facility: [facility] Address: [address] [place] [address] Result Comment: Racquel mated Glomerular Filtration Rate [...] actual GFR. Performed By: #### 2 4321-2, 54480-1 ####[facility] LABCLIA [id number] [place] [address] [place] Glucose [Mass/Vol] 231 mg/dL High 74-99 [facility] Comment on above: Order Comment: Salvatore de la rosa Type: BLOOD SPECIMENOrdering Facility: [facility] Address: [address] [place] [address] Result Comment: The [place] Diabetes Association (ADA) provides guidance for cutoff [...] Standards of Medical Care in Diabetes 2016, [place] [employer]. Diabetes Care. 2016.39(Suppl 1). Performed By: #### 2 4321-2, 52850-7 ####[facility] LABCLIA [id number] [place] [address] [place] Potassium [Moles/Vol] 4.9 mmol/L Normal 3.7-5.1 [facility] Comment on above: Order Comment: Kayyi men Type: BLOOD SPECIMENOrdering Facility: [facility] Address: [address] [place] [address] Performed By: #### 2 4321-2, 72873-5 ####[facility] LABIA [id number] [place] [address] [place] Sodium [Moles/Vol] 134 mmol/L Low 136-144 [facility] Comment on above: Order Comment: Kayyi men Type: BLOOD SPECIMENOrdering Facility: [facility] Address: [address] [place] [address] Performed By: #### 2 4321-2, 69849-1 ####[facility] LABIA [id number] [place] [address] [place] Urea nitrogen [Mass/Vol] 28 mg/dL High 9-24 [facility] Comment on above: Order Comment: Salvatore men Type: BLOOD SPECIMENOrdering Facility: [facility] Address: [address] [place] [address] Performed By: #### 2 4321-2, 78241-6 ####[facility] LABIA [id number] [address] [place] CNOVon 02-28-2024 CNOV Office Visit (FAMPWS ) -------- ESHAFAISAL Huitron ([id number]) 1945 M Date Time Provider Department 02/28/24 [...] feet walking with dyspnea- not new. Sees [facility], last visit 10/24/2023: Notes identified paroxysmal [...] Lymph 1.00 - 4.00 k/uL 2.31 1.59 [place]% % 11.1 11.1 Abs [place] <0.87 k/uL 1.14 (H) 1.24 (H) Eosin% [...] since quitting (more content not included)... Normal [facility] NT-proBNP [facility] 02-27 Natriuretic peptide.B prohormone N-Terminal [Mass/Vol] 142 pg/mL Normal <450 [facility] Comment on above: Order Comment: Speci men Type: BLOOD SPECIMENOrdering Facility: [facility] Address: [address] [place] [address] Performed By: #### 2 4321-2, 92362-8 ####[facility] LABCLIA [id number] [facility] [id number] [place] [address] [facility] XR Chest PA and Lateralon IMPRESSION: No developing abnormality or acute process Head Of Visual Merchandising: [facility] Transcribe Date/Time: Feb 05 2024 8:15A Dictated by : TRES CARSON MD This examination was interpreted and the report reviewed and electronically signed by: TRES CARSON MD on Feb 05 2024 8:16AM [facility] DIVISION OF RADIOLOGY * * *Final [...] change and osteophytosis. DIVISION OF RADIOLOGY Provider, [facility] Joel Barahona - 02/05/2024 * * [...] IMPRESSION: No developing abnormality or acute process Head Of Visual Merchandising: [facility] Transcribe Date/Time: Feb 05 2024 8:15A Dictated by : TRES CARSON MD This examination was interpreted and the report reviewed and electronically signed by: TRES CARSON MD on Feb 05 2024 8:16AM EST [facility] XR Chest PA and LateralOrder ed By: Ccf Provider on 02-05-2024 [facility] CBC W Auto Differential pane l (Bld)on 02-04-2024 Basophils (Bld) [#/Vol] 0.05 10*3/uL [facility] Basophils/100 WBC (Bld) 0.4 % [facility] Differential cell count method Nom (Bld) Auto [facility] Eosinophils (Bld) [#/Vol] 0.34 10*3/uL [facility] Eosinophils/100 WBC (Bld) 3.0 % [facility] Erythrocyte distribution width (RBC) [Ratio] 12.9 % 11.5 - 15.0 % [facility] Hematocrit (Bld) [Volume fraction] 41.9 % 39.0 - 51.0 % [facility] Hemoglobin (Bld) [Mass/Vol] 13.5 g/dL 13.0 - 17.0 g/dL [facility] Immature granulocytes (Bld) [#/Vol] 0.05 10*3/uL [facility] Immature granulocytes/100 WBC (Bld) 0.4 % [facility] Interpretation and review of laboratory results Abnormal [facility] Lymphocytes (Bld) [#/Vol] 1.59 10*3/uL [facility] Lymphocytes/100 WBC (Bld) 14.2 % [facility] MCH (RBC) [Entitic mass] 28.4 pg 26.0 - 34.0 pg [facility] MCHC (RBC) [Mass/Vol] 32.2 g/dL 30.5 - 36.0 g/dL [facility] MCV (RBC) [Entitic vol] 88.2 fL 80.0 - 100.0 fL [facility] Monocytes (Bld) [#/Vol] 1.24 10*3/uL High NINF [facility] Monocytes/100 WBC (Bld) 11.1 % [facility] Neutrophils (Bld) [#/Vol] 7.91 10*3/uL High [facility] Neutrophils/100 WBC (Bld) 70.9 % [facility] Nucleated RBC (Bld) [#/Vol] NINF [facility] Nucleated RBC/100 WBC (Bld) [Ratio] 0.0 % /100 WBC [facility] Platelet mean volume (Bld) [Entitic vol] 11.4 fL 9.0 - 12.7 fL [facility] Platelets (Bld) [#/Vol] 256 10*3/uL [facility] RBC (Bld) [#/Vol] 4.75 10*6/uL 4.20 - 6.0 0 m/uL [facility] WBC (Bld) [#/Vol] 11.18 10*3/uL High [facility] Basophils (Bld) [#/Vol] 0.05 10*3/uL Normal <0.11 [facility] Comment on above: Order Comment: Speci men Type: BLOOD SPECIMENOrdering Facility: [facility] Address: [address] [place] [address] Performed By: #### 5 7021-8 ####[facility] LABCLIA [id number] [place] [address] [place] Basophils/100 WBC (Bld) 0.4 % Normal [facility] Comment on above: Order Comment: Speci men Type: BLOOD SPECIMENOrdering Facility: [facility] Address: [address] [place] [address] Performed By: #### 5 7021-8 ####[facility] LABCLIA [id number] [place] [address] [place] Differential cell count method Nom (Bld) Auto Normal [facility] Comment on above: Order Comment: Speci men Type: BLOOD SPECIMENOrdering Facility: [facility] Address: [address] [place] [address] Performed By: #### 5 7021-8 ####[facility] LABCLIA [id number] [place] [address] [place] Eosinophils (Bld) [#/Vol] 0.34 10*3/uL Normal <0.46 [facility] Comment on above: Order Comment: Speci men Type: BLOOD SPECIMENOrdering Facility: [facility] Address: [address] [place] [address] Performed By: #### 5 7021-8 ####[facility] LABIA [id number] [place] [address] [place] Eosinophils/100 WBC (Bld) 3.0 % Normal [facility] Comment on above: Order Comment: Speci men Type: BLOOD SPECIMENOrdering Facility: [facility] Address: [address] [place] [address] Performed By: #### 5 7021-8 ####[facility] LABIA [id number] [place] [address] [place] Erythrocyte distribution width (RBC) [Ratio] 12.9 % Normal 11.5-15.0 [facility] Comment on above: Order Comment: Speci men Type: BLOOD SPECIMENOrdering Facility: [facility] Address: [address] [place] [address] Performed By: #### 5 7021-8 ####[facility] LABIA [id number] [place] [address] [place] Hematocrit (Bld) [Volume fraction] 41.9 % Normal 39.0-51.0 [facility] Comment on above: Order Comment: Speci men Type: BLOOD SPECIMENOrdering Facility: [facility] Address: [address] [place] [address] Performed By: #### 5 7021-8 ####[facility] LABCLIA [id number] [place] [address] [place] Hemoglobin (Bld) [Mass/Vol] 13.5 g/dL Normal 13.0-17.0 [facility] Comment on above: Order Comment: Speci men Type: BLOOD SPECIMENOrdering Facility: [facility] Address: [address] [place] [address] Performed By: #### 5 7021-8 ####[facility] LABCLIA [id number] [place] [address] [place] Immature granulocytes (Bld) [#/Vol] 0.05 10*3/uL Normal <0.10 [facility] Comment on above: Order Comment: Speci men Type: BLOOD SPECIMENOrdering Facility: [facility] Address: [address] [place] [address] Performed By: #### 5 7021-8 ####[facility] LABIA [id number] [place] [address] [place] Immature granulocytes/100 WBC (Bld) 0.4 % Normal [facility] Comment on above: Order Comment: Speci men Type: BLOOD SPECIMENOrdering Facility: [facility] Address: [address] [place] [address] Performed By: #### 5 7021-8 ####[facility] LABIA [id number] [place] [address] [place] Lymphocytes (Bld) [#/Vol] 1.59 10*3/uL Normal 1.00-4.00 [facility] Comment on above: Order Comment: Speci men Type: BLOOD SPECIMENOrdering Facility: [facility] Address: [address] [place] [address] Performed By: #### 5 7021-8 ####[facility] LABIA [id number] [place] [address] [place] Lymphocytes/100 WBC (Bld) 14.2 % Normal [facility] Comment on above: Order Comment: Speci men Type: BLOOD SPECIMENOrdering Facility: [facility] Address: [address] [place] [address] Performed By: #### 5 7021-8 ####[facility] LABIA [id number] [place] [address] [place] MCH (RBC) [Entitic mass] 28.4 pg Normal 26.0-34.0 [facility] Comment on above: Order Comment: Speci men Type: BLOOD SPECIMENOrdering Facility: [facility] Address: [address] [place] [address] Performed By: #### 5 7021-8 ####[facility] LABIA [id number] [place] [address] [place] MCHC (RBC) [Mass/Vol] 32.2 g/dL Normal 30.5-36.0 [facility] Comment on above: Order Comment: Speci men Type: BLOOD SPECIMENOrdering Facility: [facility] Address: [address] [place] [address] Performed By: #### 5 7021-8 ####[facility] LABIA [id number] [place] [address] [place] MCV (RBC) [Entitic vol] 88.2 fL Normal 80.0-100.0 [facility] Comment on above: Order Comment: Speci men Type: BLOOD SPECIMENOrdering Facility: [facility] Address: [address] [place] [address] Performed By: #### 5 7021-8 ####[facility] LABIA [id number] [place] [address] [place] Monocytes (Bld) [#/Vol] 1.24 10*3/uL High <0.87 [facility] Comment on above: Order Comment: Speci men Type: BLOOD SPECIMENOrdering Facility: [facility] Address: [address] [place] [address] Performed By: #### 5 7021-8 ####[facility] LABCLIA [id number] [place] [address] [place] Monocytes/100 WBC (Bld) 11.1 % Normal [facility] Comment on above: Order Comment: Speci men Type: BLOOD SPECIMENOrdering Facility: [facility] Address: [address] [place] [address] Performed By: #### 5 7021-8 ####[facility] LABCLIA [id number] [place] [address] [place] Neutrophils (Bld) [#/Vol] 7.91 10*3/uL High 1.45-7.50 [facility] Comment on above: Order Comment: Speci men Type: BLOOD SPECIMENOrdering Facility: [facility] Address: [address] [place] [address] Performed By: #### 5 7021-8 ####[facility] LABCLIA [id number] [place] [address] [place] Neutrophils/100 WBC (Bld) 70.9 % Normal [facility] Comment on above: Order Comment: Speci men Type: BLOOD SPECIMENOrdering Facility: [facility] Address: [address] [place] [address] Performed By: #### 5 7021-8 ####[facility] LABCLIA [id number] [place] [address] [place] Nucleated RBC (Bld) [#/Vol] 10*3/uL Normal <0.01 [facility] Comment on above: Order Comment: Speci men Type: BLOOD SPECIMENOrdering Facility: [facility] Address: [address] [place] [address] Performed By: #### 5 7021-8 ####[facility] LABCLIA [id number] [place] [address] [place] Nucleated RBC/100 WBC (Bld) [Ratio] 0.0 /100 WBC Normal [facility] Comment on above: Order Comment: Speci men Type: BLOOD SPECIMENOrdering Facility: [facility] Address: [address] [place] [address] Performed By: #### 5 7021-8 ####[facility] LABCLIA [id number] [place] [address] [place] Platelet mean volume (Bld) [Entitic vol] 11.4 fL Normal 9.0-12.7 [facility] Comment on above: Order Comment: Speci men Type: BLOOD SPECIMENOrdering Facility: [facility] Address: [address] [place] [address] Performed By: #### 5 7021-8 ####[facility] LABCLIA [id number] [place] [address] [place] Platelets (Bld) [#/Vol] 256 10*3/uL Normal 150-400 [facility] Comment on above: Order Comment: Speci men Type: BLOOD SPECIMENOrdering Facility: [facility] Address: [address] [place] [address] Performed By: #### 5 7021-8 ####[facility] LABCLIA [id number] [place] [address] [place] RBC (Bld) [#/Vol] 4.75 10*6/uL Normal 4.20-6.00 [facility] Comment on above: Order Comment: Speci men Type: BLOOD SPECIMENOrdering Facility: [facility] Address: [address] [place] [address] Performed By: #### 5 7021-8 ####[facility] LABCLIA [id number] [place] [address] [place] WBC (Bld) [#/Vol] 11.18 10*3/uL High 3.70-11.00 [facility] Comment on above: Order Comment: Speci men Type: BLOOD SPECIMENOrdering Facility: [facility] Address: [address] [place] [address] Performed By: #### 5 7021-8 ####[facility] LABCLIA [id number] KAREN LOCKHART [id number] [id number] [place] [facility] CNOVon 02-04-2024 CNOV Office Visit (FAMPWS ) -------- FAISAL ALARCON ([id number]) 1945 M Date Time Provider Department 02/04/24 11:20 AM [facility] visit today, we recorded the [...] feet walking with dyspnea- not new. Sees [facility], last visit 10/24/2023: Notes identified paroxysmal [...] by mouth (more content not included)... Normal [facility] Comprehensive metabolic 2000 panelon 02-04-2024 Albumin [Mass/Vol] 4.0 g/dL Normal 3.9-4.9 [facility] Comment on above: Order Comment: Speci men Type: BLOOD SPECIMENOrdering Facility: [facility] Address: [address] [place] [address] Performed By: #### 3 3762-6, 09611-4, 3016-3 ####[facility] LABCLIA [id number] [place] [address] [place] ALP [Catalytic activity/Vol] 78 U/L Normal 38-113 [facility] Comment on above: Order Comment: Speci men Type: BLOOD SPECIMENOrdering Facility: [facility] Address: [address] [place] [address] Performed By: #### 3 3762-6, 14743-6, 3016-3 ####[facility] LABCLIA [id number] [place] [address] [place] ALT [Catalytic activity/Vol] 19 U/L Normal 10-54 [facility] Comment on above: Order Comment: Speci men Type: BLOOD SPECIMENOrdering Facility: [facility] Address: [address] [place] [address] Performed By: #### 3 3762-6, 40103-6, 3016-3 ####[facility] LABIA [id number] [place] [address] [place] Anion gap [Moles/Vol] 16 mmol/L Normal 9-18 [facility] Comment on above: Order Comment: Speci men Type: BLOOD SPECIMENOrdering Facility: [facility] Address: [address] [place] [address] Performed By: #### 3 3762-6, 25304-9, 3016-3 ####[facility] [id number] [place] [address] [place] AST [Catalytic activity/Vol] 22 U/L Normal 14-40 [facility] Comment on above: Order Comment: Speci men Type: BLOOD SPECIMENOrdering Facility: [facility] Address: [address] [place] [address] Result Comment: Resu lts may be falsely increased due to interference from hemolysis. Suggest reorder as clinically indicated. Performed By: #### 3 3762-6, 00816-7, 3016-3 ####[facility] LABIA [id number] [place] [address] [place] Bilirubin [Mass/Vol] 0.3 mg/dL Normal 0.2-1.3 [facility] Comment on above: Order Comment: Speci men Type: BLOOD SPECIMENOrdering Facility: [facility] Address: [address] [place] [address] Performed By: #### 3 3762-6, 35883-0, 6-3 ####[facility] LABCLIA [id number] [address] [address] [place] Calcium [Mass/Vol] 9.4 mg/dL Normal 8.5-10.2 [facility] Comment on above: Order Comment: Speci men Type: BLOOD SPECIMENOrdering Facility: [facility] Address: [address] [place], [place] [address] Performed By: #### 3 3762-6, 86316-7, 6-3 ####[facility] LABCLIA [id number] [place] [address] [place] Chloride [Moles/Vol] 98 mmol/L Normal 97-105 [facility] Comment on above: Order Comment: Speci men Type: BLOOD SPECIMENOrdering Facility: [facility] Address: [address] [place], [place] [address] Performed By: #### 3 3762-6, 46105-2, 6-3 ####[facility] LABCLIA [id number] [place] [address] [place] CO2 [Moles/Vol] 21 mmol/L Low 22-30 [facility] Comment on above: Order Comment: Speci men Type: BLOOD SPECIMENOrdering Facility: [facility] Address: [address] [place], [place] [address] Performed By: #### 3 3762-6, 85276-7, 6-3 ####[facility] LABCLIA [id number] [address] [address] [place] Creatinine [Mass/Vol] 0.90 mg/dL Normal 0.73-1.22 [facility] Comment on above: Order Comment: Speci men Type: BLOOD SPECIMENOrdering Facility: [facility] Address: [address] [place], [place] [address] Performed By: #### 3 3762-6, 33026-1, 3016-3 ####[facility] LABCLIA [id number] [place] [address] [place] Creatinine and Glomerular filtration rate.predicted panel (S/P/Bld) 87 mL/min/1.73m??? Normal >=60 [facility] Comment on above: Order Comment: Salvatore de la rosa Type: BLOOD SPECIMENOrdering Facility: [facility] Address: [address] [place] [address] Result Comment: Racquel mated Glomerular Filtration Rate [...] actual GFR. Performed By: #### 3 3762-6, 47830-4, 3015-3 ####[facility] LABIA [id number] [place] [address] [place] Glucose [Mass/Vol] 150 mg/dL High 74-99 [facility] Comment on above: Order Comment: Salvatore de la rosa Type: BLOOD SPECIMENOrdering Facility: [facility] Address: [address] [place] [address] Result Comment: The [place] Diabetes [employer] (ADA) provides guidance for cutoff [...] Standards of Medical Care in Diabetes 2016, [place] [employer]. Diabetes Care. 2016.39(Suppl 1). Performed By: #### 3 3762-6, 89406-6, 3015-3 ####[facility] LABCLIA [id number] [address] [address] [place] Potassium [Moles/Vol] 4.8 mmol/L Normal 3.7-5.1 [facility] Comment on above: Order Comment: Speci men Type: BLOOD SPECIMENOrdering Facility: [facility] Address: [address] [place] [address] Performed By: #### 3 3762-6, 31822-4, 6-3 ####[facility] LABCLIA [id number] [place] [address] [place] Protein [Mass/Vol] 6.8 g/dL Normal 6.3-8.0 [facility] Comment on above: Order Comment: Speci men Type: BLOOD SPECIMENOrdering Facility: [facility] Address: [address] [place] [address] Performed By: #### 3 3762-6, 84614-0, 6-3 ####[facility] LABIA [id number] [place] [address] [place] Sodium [Moles/Vol] 135 mmol/L Low 136-144 [facility] Comment on above: Order Comment: Speci men Type: BLOOD SPECIMENOrdering Facility: [facility] Address: [address] [place] [address] Performed By: #### 3 3762-6, 25899-9, 6-3 ####[facility] LABIA [id number] [place] [id number] [place] Urea nitrogen [Mass/Vol] 26 mg/dL High 9-24 [facility] Comment on above: Order Comment: Speci men Type: BLOOD SPECIMENOrdering Facility: [facility] Address: [address] [place] [address] Performed By: #### 3 3762-6, 39804-6, 3016-3 ####[facility] LABIA [id number] [place] ECG COMPLETEon 02-04-2024 ECG COMPLETE Ventricular Rate : 7 2 BPM Atrial Rate : 72 BPM P-R Interval : 240 ms QRS Duration : 168 ms Q-T Interval : 446 ms QTC Calculation(Bazett) : 488 ms Calculated P Altura : 7 degrees Calculated R Altura : -77 degrees Calculated T Altura : 17 degrees SINUS RHYTHM WITH 1ST DEGREE AV BLOCK COMPLETE RIGHT BUNDLE BRANCH BLOCK LEFT ANTERIOR FASCICULAR BLOCK BIFASCICULAR BLOCK ABNORMAL ECG Confirmed by MD VICKERS GREGORY () on 02/05/2024 8:19:01 AM NAME : FAISAL ALARCON PID : [id number] : 1945 Gender : Male Race : ORD : [id number] Procedure Date : Feb 04 2024 11:01:53 Edit Date : Feb 05 2024 08:19:07 Diagnosis: SINUS RHYTHM WITH 1ST DEGREE AV BLOCK COMPLETE RIGHT BUNDLE BRANCH BLOCK LEFT ANTERIOR FASCICULAR BLOCK BIFASCICULAR BLOCK ABNORMAL ECG Confirmed by MD VICKERS GREGORY () on 02/05/2024 8:19:01 AM Test Reason : R06.02 SOB (shortness of breath) Location : [facility] Overread By : MD VICKERS GREGORY Edited By : MD VICKERS GREGORY Referred By : , Acquired by : , Normal [facility] NT-proBNP SerPl-mCncon 02-03 Natriuretic peptide.B prohormone N-Terminal [Mass/Vol] 83 pg/mL Normal <450 [facility] Comment on above: Order Comment: Speci men Type: BLOOD SPECIMENOrdering Facility[facility] Address: [address] [place] [address] Performed By: #### 3 3762-6, 01771-8, 3016-3 ####[facility] LABCLIA [id number] [place] [address] [place] TSH SerPl-aCncon 02-04-2024 TSH Qn 1.670 m[IU]/L Normal 0.270-4.200 [facility] Comment on above: Order Comment: Speci men Type: BLOOD SPECIMENOrdering Facility: [facility] Address: [address] [place] [address] Performed By: #### 3 3762-6, 64403-6, 3016-3 ####[facility] LABCLIA [id number] [facility] [place] [address] [place] XR CHEST 2V [...] IMPRESSION: No developing abnormality or acute process Head Of Visual Merchandising: BERNIE Transcribe Date/Time: Feb 05 2024 8:15A Dictated by : TRES CARSON MD This examination was interpreted and the report reviewed and electronically signed by: TRES CARSON MD on Feb 05 2024 8:16AM EST [id number] Normal [facility] XR Chest PA and Lateralon Radiology Study observation (narrative) [facility] CNCOon 01-01-2024 CNCO Letter Text Normal [facility] CNPNon 01-01-2024 CNPN Telephone ([facility]) -------- FAISAL ALARCON ([id number]) 1945 M Date Time Provider Department 01/01/24 JEFF VIRGEN During your visit today, we recorded the following information about you: Osvaldo Regalado, RN 01/01/2024 12:11 PM Signed Daughter, Loan, reports she spoke with [employer], who informed her pcp would need to write a Prior Auth letter stating condition and diagnoses, and specify patient needs a lite weight, and fax it to [facility] at fax # [phone]. [facility] would then decide if they will [...] mouth every 12 hours. Prescribed by outside financing analyst - albuterol HFA (VENTOLIN HFA) 90 mcg/actuation [...] Encounter Status:Closed by JEFF VIRGEN on 01/01/24 [facility] CNCOon 12-25-2023 CNCO Letter Text Normal [facility] CNOVon 12-25-2023 CNOV Office Visit ([facility] ) -------- FAISAL ALARCON ([id number]) 1945 M Date Time Provider Department 12/25/23 1:40 PM JEFF VIRGEN During your visit today, we [...] Abs Lymph 1.00 - 4.00 k/uL 2.31 Sweet [place]% % 11.1 Abs [place] <0.87 k/uL 1.14 (H) Eosin% % 3.4 [...] LANCETS) zbigniew (more content not included)... Normal [facility] ALBUMIN/CREAT RATIO RND URon 11-28-2023 Albumin DL <= 20 mg/L (U) [Mass/Vol] mg/dL Normal [facility] Comment on above: Order Comment: Speci men Type: URINE SPECIMENOrdering Facility: [facility] Address: [address] [place] [address] Performed By: #### U ACR ####[facility] LABCLIA [id number] [place] [address] [place] Albumin/Creatinine (U) [Mass ratio] <19 Normal <30 [facility] Comment on above: Order Comment: Speci men Type: URINE SPECIMENOrdering Facility: [facility] Address: [address] [place] [address] Result Comment: Adul t Male and Female Nephrotic Criteria: <30 mg/g is considered normal to mildly increased 30-300 mg/g is considered moderately increased >300 mg/g is considered severely increased KDIGO. (2013). KDIGO 2012 Clinical Practice Guideline for the Evaluation and Management of Chronic Kidney Disease. Official Journal of the International Society of Nephrology, 3(1), 1-150. Performed By: #### U ACR ####[facility] LABCLIA [id number] [place] [address] [place] Creatinine (U) [Mass/Vol] 61.6 mg/dL Normal 20.0-300.0 [facility] Comment on above: Order Comment: Speci men Type: URINE SPECIMENOrdering Facility: [facility] Address: [address] [place] [address] Performed By: #### U ACR ####[facility] LABCLIA [id number] [place] [address] [place] Basic metabolic 2000 panelon 11-28-2023 Anion gap [Moles/Vol] 11 mmol/L Normal 9-18 [facility] Comment on above: Order Comment: Speci men Type: BLOOD SPECIMENOrdering Facility: [facility] Address: [address] [place] [address] Performed By: #### 2 4331-1, 78375-3 ####[facility] LABCLIA [id number] [place] [address] [place] Calcium [Mass/Vol] 9.8 mg/dL Normal 8.5-10.2 [facility] Comment on above: Order Comment: Speci men Type: BLOOD SPECIMENOrdering Facility: [facility] Address: [address] [place] [address] Performed By: #### 2 4331-1, 01657-5 ####[facility] LABCLIA [id number] [place] [id number] [place] Chloride [Moles/Vol] 100 mmol/L Normal 97-105 [facility] Comment on above: Order Comment: Speci men Type: BLOOD SPECIMENOrdering Facility: [facility] Address: [address] [place] [address] Performed By: #### 2 4331-1, 52394-6 ####[facility] LABCLIA [id number] [place] [address] [place] CO2 [Moles/Vol] 24 mmol/L Normal 22-30 [facility] Comment on above: Order Comment: Speci men Type: BLOOD SPECIMENOrdering Facility: [facility] Address: [address] [place] [address] Performed By: #### 2 4331-1, 11090-3 ####[facility] LABCLIA [id number] [place] [address] [place] Creatinine [Mass/Vol] 1.06 mg/dL Normal 0.73-1.22 [facility] Comment on above: Order Comment: Speci men Type: BLOOD SPECIMENOrdering Facility: [facility] Address: [address] [place] [address] Performed By: #### 2 4331-1, 51490-2 ####[facility] LABIA [id number] [place] [address] [place] Creatinine and Glomerular filtration rate.predicted panel (S/P/Bld) 71 mL/min/1.73m??? Normal >=60 [facility] Comment on above: Order Comment: Speci men Type: BLOOD SPECIMENOrdering Facility: [facility] Address: [address] [place] [address] Result Comment: Racquel mated Glomerular Filtration Rate [...] actual GFR. Performed By: #### 2 4331-1, 81631-1 ####[facility] LABCLIA [id number] [place] [address] [place] Glucose [Mass/Vol] 117 mg/dL High 74-99 [facility] Comment on above: Order Comment: Salvatore de la rosa Type: BLOOD SPECIMENOrdering Facility: [facility] Address: [address] [place] [address] Result Comment: The [place] Diabetes Association (ADA) provides guidance for cutoff [...] Standards of Medical Care in Diabetes 2016, [place] Diabetes Association. Diabetes Care. 2016.39(Suppl 1). Performed By: #### 2 433-, 84520-5 ####[facility] LABCLIA [id number] [place] [address] [place] Potassium [Moles/Vol] 4.3 mmol/L Normal 3.7-5.1 [facility] Comment on above: Order Comment: Salvatore de la rosa Type: BLOOD SPECIMENOrdering Facility: [facility] Address: [address] [place] [address] Performed By: #### 2 4331-1, 70932-9 ####[facility] LABCLIA [id number] [place] [address] [place] Sodium [Moles/Vol] 135 mmol/L Low 136-144 [facility] Comment on above: Order Comment: Speci men Type: BLOOD SPECIMENOrdering Facility: [facility] Address: [address] [place] [address] Performed By: #### 2 4331-1, 88690-9 ####[facility] LABCLIA [id number] [place] [address] [place] Urea nitrogen [Mass/Vol] 25 mg/dL High 9-24 [facility] Comment on above: Order Comment: Speci men Type: BLOOD SPECIMENOrdering Facility: [facility] Address: [address] [place] [address] Performed By: #### 2 4331-1, 36082-5 ####[facility] LABCLIA [id number] [place] [address] [place] CBC W Auto Differential pane l (Bld)on 11-28-2023 Basophils (Bld) [#/Vol] 0.05 10*3/uL Normal <0.11 [facility] Comment on above: Order Comment: Speci men Type: BLOOD SPECIMENOrdering Facility: [facility] Address: [address] [place] [address] Performed By: #### 5 7021-8 ####[facility] LABCLIA [id number] [place] [address] [place] Basophils/100 WBC (Bld) 0.5 % Normal [facility] Comment on above: Order Comment: Speci men Type: BLOOD SPECIMENOrdering Facility: [facility] Address: [address] [place] [address] Performed By: #### 5 7021-8 ####[facility] LABCLIA [id number] [place] [address] [place] Differential cell count method Nom (Bld) Auto Normal [facility] Comment on above: Order Comment: Speci men Type: BLOOD SPECIMENOrdering Facility: [facility] Address: [address] [place] [address] Performed By: #### 5 7021-8 ####[facility] LABCLIA [id number] [place] [address] [place] Eosinophils (Bld) [#/Vol] 0.35 10*3/uL Normal <0.46 [facility] Comment on above: Order Comment: Speci men Type: BLOOD SPECIMENOrdering Facility: [facility] Address: [address] [place] [address] Performed By: #### 5 7021-8 ####[facility] LABCLIA [id number] [place] [address] [place] Eosinophils/100 WBC (Bld) 3.4 % Normal [facility] Comment on above: Order Comment: Speci men Type: BLOOD SPECIMENOrdering Facility: [facility] Address: [address] [place] [address] Performed By: #### 5 7021-8 ####[facility] LABCLIA [id number] [place] [address] [place] Erythrocyte distribution width (RBC) [Ratio] 13.9 % Normal 11.5-15.0 [facility] Comment on above: Order Comment: Speci men Type: BLOOD SPECIMENOrdering Facility: [facility] Address: [address] [place] [address] Performed By: #### 5 7021-8 ####[facility] LABCLIA [id number] [place] [address] [place] Hematocrit (Bld) [Volume fraction] 43.7 % Normal 39.0-51.0 [facility] Comment on above: Order Comment: Speci men Type: BLOOD SPECIMENOrdering Facility: [facility] Address: [address] [place] [address] Performed By: #### 5 7021-8 ####[facility] LABCLIA [id number] [id number] [address] [place] Hemoglobin (Bld) [Mass/Vol] 14.1 g/dL Normal 13.0-17.0 [facility] Comment on above: Order Comment: Speci men Type: BLOOD SPECIMENOrdering Facility: [facility] Address: [address] [place] [address] Performed By: #### 5 7021-8 ####[facility] LABCLIA [id number] [place] [address] [place] Immature granulocytes (Bld) [#/Vol] 0.05 10*3/uL Normal <0.10 [facility] Comment on above: Order Comment: Speci men Type: BLOOD SPECIMENOrdering Facility: [facility] Address: [address] [place] [address] Performed By: #### 5 7021-8 ####[facility] LABCLIA [id number] [place] [address] [place] Immature granulocytes/100 WBC (Bld) 0.5 % Normal [facility] Comment on above: Order Comment: Speci men Type: BLOOD SPECIMENOrdering Facility: [facility] Address: [address] [place] [address] Performed By: #### 5 7021-8 ####[facility] LABCLIA [id number] [place] [address] [place] Lymphocytes (Bld) [#/Vol] 2.31 10*3/uL Normal 1.00-4.00 [facility] Comment on above: Order Comment: Speci men Type: BLOOD SPECIMENOrdering Facility: [facility] Address: [address] [place] [address] Performed By: #### 5 7021-8 ####[facility] LABCLIA [id number] [place] [address] [place] Lymphocytes/100 WBC (Bld) 22.6 % Normal [facility] Comment on above: Order Comment: Speci men Type: BLOOD SPECIMENOrdering Facility: [facility] Address: [address] [place] [address] Performed By: #### 5 7021-8 ####[facility] LABCLIA [id number] [place] [address] [place] MCH (RBC) [Entitic mass] 28.1 pg Normal 26.0-34.0 [facility] Comment on above: Order Comment: Speci men Type: BLOOD SPECIMENOrdering Facility: [facility] Address: [address] [place] [address] Performed By: #### 5 7021-8 ####[facility] LABIA [id number] [place] [address] [place] MCHC (RBC) [Mass/Vol] 32.3 g/dL Normal 30.5-36.0 [facility] Comment on above: Order Comment: Speci men Type: BLOOD SPECIMENOrdering Facility: [facility] Address: [address] [place] [address] Performed By: #### 5 7021-8 ####[facility] LABIA [id number] [place] [address] [place] MCV (RBC) [Entitic vol] 87.2 fL Normal 80.0-100.0 [facility] Comment on above: Order Comment: Speci men Type: BLOOD SPECIMENOrdering Facility: [facility] Address: [address] [place] [address] Performed By: #### 5 7021-8 ####[facility] LABCLIA [id number] [place] [address] [place] Monocytes (Bld) [#/Vol] 1.14 10*3/uL High <0.87 [facility] Comment on above: Order Comment: Speci men Type: BLOOD SPECIMENOrdering Facility: [facility] Address: [address] [place] [address] Performed By: #### 5 7021-8 ####[facility] LABCLIA [id number] [place] [address] [place] Monocytes/100 WBC (Bld) 11.1 % Normal [facility] Comment on above: Order Comment: Speci men Type: BLOOD SPECIMENOrdering Facility: [facility] Address: [address] [place] [address] Performed By: #### 5 7021-8 ####[facility] LABCLIA [id number] [place] [address] [place] Neutrophils (Bld) [#/Vol] 6.34 10*3/uL Normal 1.45-7.50 [facility] Comment on above: Order Comment: Speci men Type: BLOOD SPECIMENOrdering Facility: [facility] Address: [address] [place] [address] Performed By: #### 5 7021-8 ####[facility] LABCLIA [id number] [place] [address] [place] Neutrophils/100 WBC (Bld) 61.9 % Normal [facility] Comment on above: Order Comment: Speci men Type: BLOOD SPECIMENOrdering Facility: [facility] Address: [address] [place] [address] Performed By: #### 5 7021-8 ####[facility] LABIA [id number] [place] [address] [place] Nucleated RBC (Bld) [#/Vol] 10*3/uL Normal <0.01 [facility] Comment on above: Order Comment: Speci men Type: BLOOD SPECIMENOrdering Facility: [facility] Address: [address] [place] [address] Performed By: #### 5 7021-8 ####[facility] LABCLIA [id number] [place] [address] [place] Nucleated RBC/100 WBC (Bld) [Ratio] 0.0 /100 WBC Normal [facility] Comment on above: Order Comment: Speci men Type: BLOOD SPECIMENOrdering Facility: [facility] Address: [address] [place] [address] Performed By: #### 5 7021-8 ####[facility] LABIA [id number] [place] [address] [place] Platelet mean volume (Bld) [Entitic vol] 11.3 fL Normal 9.0-12.7 [facility] Comment on above: Order Comment: Speci men Type: BLOOD SPECIMENOrdering Facility: [facility] Address: [address] [place] [address] Performed By: #### 5 7021-8 ####[facility] LABIA [id number] [place] [address] [place] Platelets (Bld) [#/Vol] 280 10*3/uL Normal 150-400 [facility] Comment on above: Order Comment: Speci men Type: BLOOD SPECIMENOrdering Facility: [facility] Address: [address] [place] [address] Performed By: #### 5 7021-8 ####[facility] LABCLIA [id number] [place] [address] [place] RBC (Bld) [#/Vol] 5.01 10*6/uL Normal 4.20-6.00 [facility] Comment on above: Order Comment: Speci men Type: BLOOD SPECIMENOrdering Facility: [facility] Address: [address] [place] [address] Performed By: #### 5 7021-8 ####[facility] LABCLIA [id number] [place] [address] [place] WBC (Bld) [#/Vol] 10.24 10*3/uL Normal 3.70-11.00 [facility] Comment on above: Order Comment: Speci men Type: BLOOD SPECIMENOrdering Facility: [facility] Address: [address] [place] [address] Performed By: #### 5 7021-8 ####[facility] LABCLIA [id number] [address] [facility] HbA1c (Bld)on 11-28-2023 Average glucose Estimated from glycated hemoglobin (Bld) [Mass/Vol] 183 mg/dL Normal [facility] Comment on above: Order Comment: Salvatore de la rosa Type: BLOOD SPECIMENOrdering Facility: [facility] Address: [address] [place] [address] Result Comment: eAG: (Estimated average glucose) is a calculated value from HgbA1c and is sales training representative of the average blood glucose level in the last 2-3 month period. Performed By: #### 5 5454-3 ####[facility] LABIA [id number] [address] STATES [facility] HbA1c (Bld) [Mass fraction] 8.0 % High 4.3-5.6 [facility] Comment on above: Order Comment: Salvatore de la rosa Type: BLOOD SPECIMENOrdering Facility: [facility] Address: [address] [place] [address] Result Comment: Amer [place] Diabetes Association guidelines indicate that patients with HgbA1c in the range 5.7-6.4% are at increased risk for development of diabetes, and intervention by lifestyle modification may be beneficial. HgbA1c greater or equal to 6.5% is considered diagnostic of diabetes. Performed By: #### 5 5454-3 ####[facility] LABCLIA [id number] [address] [place] Lipid 1996 panelon 4 Cholesterol [Mass/Vol] 118 mg/dL Normal <200 [facility] Comment on above: Order Comment: Salvatore de la rosa Type: BLOOD SPECIMENOrdering Facility: [facility] Address: [address] [place] [address] Result Comment: <200 mg/dL, Desirable 200-239 mg/dL, Borderline high >239 mg/dL, High Performed By: #### 2 4331-1, 70269-7 ####[facility] LABCLIA [id number] [address] [place] Cholesterol in HDL [Mass/Vol] 37 mg/dL Low >39 [facility] Comment on above: Order Comment: Salvatore de la rosa Type: BLOOD SPECIMENOrdering Facility: [facility] Address: [address] [place] [address] Result Comment: 40-5 9 mg/dL, Acceptable >59 mg/dL, High: Negative risk factor for coronary heart disease <40 mg/dL, Low: Positive risk factor for coronary heart disease Performed By: #### 2 4331-1, 77499-7 ####[facility] LABCLIA [id number] [address] STATES [facility] Cholesterol in LDL [Mass/Vol] 55 mg/dL Normal <100 [facility] Comment on above: Order Comment: Salvatore de la rosa Type: BLOOD SPECIMENOrdering Facility: [facility] Address: [address] [place] [address] Result Comment: <100 mg/dL, Optimal 100-129 mg/dL, Near optimal/above optimal 130-159 mg/dL, Borderline high 160-189 mg/dL, High >189 mg/dL, Very high Secondary prevention optimal LDL Cholesterol levels are recommended to be < 70 mg/dL Performed By: #### 2 4331-1, 38104-5 ####[facility] LABCLIA [id number] [address] Cholesterol in LDL/Cholesterol in HDL [Mass ratio] 1.49 {ratio} Normal <2.54 [facility] Comment on above: Order Comment: Salvatore estrella Type: BLOOD SPECIMENOrdering Facility: [facility] Address: [address] [place] [address] Result Comment: David arshad: 1. National Cholesterol Education Program ATP III Guideline At-A-Glance Quick Desk Reference: National Heart, Lung, and Blood [place]. National Institutes of Health. 2001: NIH Publication No. 01-3305. 2. An International Atherosclerosis Society position paper: global recommendations for the management of dyslipidemia: executive summary, Atherosclerosis. 2014: 232(2):410-413. Performed By: #### 2 4331-1, 85998-7 ####[facility] LABCLIA [id number] [place] [address] [place] Cholesterol in VLDL [Mass/Vol] 26 mg/dL Normal <30 [facility] Comment on above: Order Comment: Speci men Type: BLOOD SPECIMENOrdering Facility: [facility] Address: [address] [place] [address] Performed By: #### 2 4331-1, 14734-4 ####[facility] LABCLIA [id number] [place] [address] [place] Cholesterol non HDL [Mass/Vol] 81 mg/dL Normal <130 [facility] Comment on above: Order Comment: Speci men Type: BLOOD SPECIMENOrdering Facility: [facility] Address: [address] [place] [address] Result Comment: <130 mg/dL, Optimal 130-159 mg/dL, Near optimal/above optimal 160-189 mg/dL, Borderline high 190-219 mg/dL, High >219 mg/dL, Very high Secondary prevention optimal non HDL Cholesterol levels are recommended to be <100 mg/dL Performed By: #### 2 4331-1, 24349-4 ####[facility] LABCLIA [id number] [address] [address] [place] Cholesterol.total/Ch olesterol in HDL [Mass ratio] 3.19 {ratio} Normal <5.10 [facility] Comment on above: Order Comment: Speci men Type: BLOOD SPECIMENOrdering Facility: [facility] Address: [address] [place] [id number] Performed By: #### 2 4331-1, 08570-6 ####[facility] LABCLIA [id number] [place] [id number] [place] FASTING TIME 12 hrs Normal [facility] Comment on above: Order Comment: Speci men Type: BLOOD SPECIMENOrdering Facility: [facility] Address: [address] [place] [address] Performed By: #### 2 4331-1, ####[facility] LABCLIA [id number] [place] [address] [place] Triglyceride [Mass/Vol] 131 mg/dL Normal <150 [facility] Comment on above: Order Comment: Speci men Type: BLOOD SPECIMENOrdering Facility: [facility] Address: [address] [place] [address] Result Comment: <150 mg/dL, Normal 150-199 mg/dL, Borderline high 200-499 mg/dL, High >499 mg/dL, Very high Performed By: #### 2 4331-1, 47182-7 ####[facility] LABCLIA [id number] [address] [place] CNPSharlene 11-14-2023 [facility] FAISAL ALARCON ([id number]) 1945 Date Time Provider Department 11/14/23 Osvaldo TRAVIS [facility] During your visit today, we recorded [...] Date Reviewed: 09/06/2023 Reviewed by: Anum Cheung APRN.JIG GRINDER - Fully Assessed Reason for Visit: Medication [...] mouth every 12 hours. Prescribed by outside financing analyst - albuterol HFA (VENTOLIN HFA) 90 mcg/actuation [...] pneumonia [J18.9] more content not included)... Normal [facility] CNPN Telephone ([facility]) -------- FAISAL ALARCON ([id number]) 1945 Date Time Provider Department 11/14/23 JEFF VIRGEN [facility] During your visit today, we recorded the following information about you: Tammy Davies LPN 11/14/2023 8:45 AM Signed Patient daughter Loan calling asking to have order for Albumin Creat urine put in computer for her father to complete on 11/28/2023 when he comes in to get his lab work done. Pending order to file. Please advise Julianna Hood APRN.CAKE ICER 11/15/2023 12:49 PM Signed Ordered. Allergies As of Date: 11/14/2023 Noted Allergy Reaction AMOXICILLIN 05/11/2005 Comments: generalized erythema Date Reviewed: 09/06/2023 Reviewed by: Anum Cheung APRN.JIG GRINDER - Fully Assessed Reason for Visit: Orders [681] Primary Visit Diagnosis:Type 2 diabetes mellitus without complication, with long-term current use of insulin (HCC) [E11.9, Z79.4] Order(s):ALBUMIN/CREAT RATIO RND UR [SQUACR] Order #: [id number] FUTURE Prescriptions as of 11/15/2023 - ELIQUIS [...] mouth every 12 hours. Prescribed by outside financing analyst - albuterol HFA (VENTOLIN HFA) 90 mcg/actuation [...] Encounter Status:Closed by JULIANNA HOOD on 11/15/23 [facility] FAISAL ALARCON ([id number]) 1945 M Date Time Provider Department 09/12/23 ANUM CHEUNG [place] [facility] During your visit today, we recorded [...] Date Reviewed: 09/06/2023 Reviewed by: Anum Cheung APRN.JIG GRINDER - Fully Assessed Reason for Visit: Results [...] mouth every 12 hours. Prescribed by outside financing analyst - famotidine (PEPCID) 20 mg tablet Take [...] three times daily before meals. Getting through [facility] - losartan-hydroCHLOROthia zide (HYZAAR) 100-12.5 mg per [...] Status:Closed by REANNA GREENBERG on 09/13/23 Normal [facility] XR Chest PA and Lateralon IMPRESSION: Diffuse coarsening of the lung markings, with areas of linear atelectasis or fibrosis. Stable Cardiomegaly Head Of Visual Merchandising: BERNIE Transcribe Date/Time: Sep 11 2023 12:08P Dictated by : TRES CARSON MD This examination was interpreted and the report reviewed and electronically signed by: TRES CARSON MD on Sep 11 2023 12:10PM [facility] DIVISION OF RADIOLOGY * * *Final [...] of linear atelectasis or fibrosis. Stable Cardiomegaly Head Of Visual Merchandising: PSCB Transcribe Date/Time: Sep 11 2023 12:08P Dictated by : TRES CARSON MD This examination was interpreted and the report reviewed and electronically signed by: TRES CARSON MD on Sep 11 2023 12:10PM [facility] XR Chest PA and LateralOrder ed By: Cc Provider on 09-11-2023 [facility] 09-07-2023 [facility] Telephone (COLIN) -------- FAISAL ALARCON ([id number]) 1945 M Date Time Provider Department 09/07/23 [facility] During your visit today, we recorded the [...] We have no control over radiology at [facility]. If he is sick, he is contagious no matter what it shows and is being treated for both. Reanna Greenberg RN 09/07/2023 1:11 PM Signed Loan notified of provider recommendations. Loan voices understanding. Reanna Greenberg RN Allergies As of Date: 09/07/2023 Noted Allergy Reaction AMOXICILLIN 05/11/2005 Comments: generalized erythema Date Reviewed: 09/06/2023 Reviewed by: Anum Cheung APRN.JIG GRINDER - Fully Assessed Reason for Visit: Patient [...] mouth every 12 hours. Prescribed by outside financing analyst - famotidine (PEPCID) 20 mg tablet Take [...] three times daily before meals. Getting through [facility] - losartan-hydroCHLOROthia zide (HYZAAR) 100-12.5 mg per [...] lobe pneumonia (more content not included)... Normal [facility] CNOVon 09-06-2023 CNOV Office Visit (FAMPWS ) -------- FAISAL ALARCON ([id number]) 1945 M Date Time Provider Department 09/06/23 2:40 PM ANUM CHEUNGPWS During your visit today, we recorded the following information about you: Temperature Pulse Respiration Blood pressure 96.4 degrees 68/minute 14/minute 120/64 Weight 132.4 kg Anum Cheung PAIGE.JIG GRINDER 09/06/2023 3:13 PM Signed Chief Complaint Patient [...] mouth every 12 hours. Prescribed by outside financing analyst famotidine (PEPCID) 20 mg tablet Take 1 [...] by mouth (more content not included)... Normal [facility] XR CHEST 2V FRONTAL/LATon XR [...] of linear atelectasis or fibrosis. Stable Cardiomegaly Head Of Visual Merchandising: BERNIE Transcribe Date/Time: Sep 11 2023 12:08P Dictated by : TRES CARSON MD This examination was interpreted and the report reviewed and electronically signed by: TRES CARSON MD on Sep 11 2023 12:10PM EST [id number] Normal [facility] XR Chest PA and Lateralon Radiology Study observation (narrative) [facility] Ema 08-07-2023 CNPN Telephone (FAMWS) -------- FAISAL ALARCON ([id number]) 1945 M Date Time Provider Department 08/07/23 JEFF VIRGEN During your visit today, we recorded the following information about you: Lulu Cleary 08/07/2023 2:16 PM Signed Type of form: Patient Assistance. [facility] Form received via walk in When form is completed, Fax form to number on form. Form has been forwarded to Physician Desk: Dr. Virgen. Lulu Liz 08/07/2023 2:34 PM Signed Forms completed and signed and faxed back to [place] at [phone]. Patient informed. Lulu Cleary Allergies As of Date: 08/07/2023 Noted Allergy Reaction AMOXICILLIN 05/11/2005 Comments: generalized erythema Date Reviewed: 07/23/2023 Reviewed by: Julia Lopez LPN - Fully Assessed Reason for Visit: Patient Assistance [4028] Cmt: [facility] (Basaglar and Humalog) Prescriptions as of 08/07/2023 - flecainide (TAMBOCOR) 150 mg tablet Take 1 tablet by mouth every 12 hours. Prescribed by outside financing analyst - famotidine (PEPCID) 20 mg tablet Take [...] three times daily before meals. Getting through [facility] - losartan-hydroCHLOROthia zide (HYZAAR) 100-12.5 mg per [...] Status:Closed by LULU CLEARY on 08/07/23 Normal [facility] XR Pelvis and Hip - right AP and Lateral frogon 07-25-2023 IMPRESSION: Minimal right hip osteoarthritis without acute osseous abnormality. Head Of Visual Merchandising: PSCB Transcribe Date/Time: Jul 25 2023 9:21A Dictated by : CARINA IGLESIAS DO This examination was interpreted and the report reviewed and electronically signed by: CARINA IGLESIAS DO on Jul 25 2023 9:22AM [facility] DIVISION OF RADIOLOGY * * *Final [...] spine. Pelvic enthesopathy. DIVISION OF RADIOLOGY Provider, [facility] - 07/25/2023 * * *Final Report* * [...] right hip osteoarthritis without acute osseous abnormality. Head Of Visual Merchandising: PSCB Transcribe Date/Time: Jul 25 2023 9:21A Dictated by : CARIAN IGLESIAS DO This examination was interpreted and the report reviewed and electronically signed by: CARINA IGLESIAS DO on Jul 25 2023 9:22AM EST [facility] XR Pelvis and Hip - right AP and Lateral frogOrdered By: Ccf Provider on 07-25-2023 [facility] CNOVon 07-23-2023 CNOV Office Visit (FAMPWS ) -------- FAISAL ALARCON ([id number]) 1945 M Date Time Provider Department 07/23/23 [...] mouth every 12 hours. Prescribed by outside financing analyst famotidine (PEPCID) 20 mg tablet Take 1 [...] times daily before meals. Getting through [facility] metFORMIN ER (GLUCOPHAGE XR) 500 [...] Resp 20 (more content not included)... Normal [facility] XR HIP 3V PELV+ AP/LAT [...] right hip osteoarthritis without acute osseous abnormality. Head Of Visual Merchandising: PSCB Transcribe Date/Time: Jul 25 2023 9:21A Dictated by : CARINA IGLESIAS DO This examination was interpreted and the report reviewed and electronically signed by: CARINA IGLESIAS DO on Jul 25 2023 9:22AM EST [id number] Normal [facility] XR Pelvis and Hip - right AP and Lateral frogon 07-23-2023 Radiology Study observation (narrative) [facility] SEBASTIANOon 07-13-2023 [facility] ESHAFAISAL PYLE ([id number]) 1945 M Date Time Provider Department 07/13/23 JEFF VIRGEN [facility] During your visit today, we recorded the following information about you: Janet King Ma 07/13/2023 1:55 PM Signed Received notification that patient will be due for re-enrollment for the [facility] patient assistance programs of Humalog and Basjillianar starting 09/17/23. Call to daughter and advised her of this. She will start the process and get it to us. She is asking for a handicap placard to be completed for pt. Once done, call her for cloth picker. Jeff Bray Ma, MD 07/13/2023 2:10 PM Signed Printed. Anthony Henley LPN 07/13/2023 4:20 PM Signed Notified that will place in medical records for cloth picker. Can cloth picker starting tomorrow 07/14/23. Allergies As of Date: 07/13/2023 Noted Allergy Reaction AMOXICILLIN 05/11/2005 Comments: generalized erythema Date Reviewed: 06/09/2023 Reviewed by: Julia Lopez LPN - Fully Assessed Prescriptions as of 07/13/2023 - flecainide (TAMBOCOR) 150 mg tablet Take 1 tablet by mouth every 12 hours. Prescribed by outside financing analyst - famotidine (PEPCID) 20 mg tablet Take [...] three times daily before meals. Getting through [facility] - losartan-hydroCHLOROthia zide (HYZAAR) 100-12.5 mg per [...] by ANTHONY HENLEY LPN on 07/13/23 [facility]/LATon [facility] XR Chest PA and Lateralon IMPRESSION: Question of some mild bilateral perihilar infiltrate. Head Of Visual Merchandising: BERNIE Transcribe Date/Time: Jun 09 2023 12:07P Dictated by : MAN ROSADO DO This examination was interpreted and the report reviewed and electronically signed by: MAN ROSADO DO on Jun 09 2023 12:08PM [facility] DIVISION OF RADIOLOGY * * *Final [...] Question of some mild bilateral perihilar infiltrate. Head Of Visual Merchandising: BERNIE Transcribe Date/Time: Jun 09 2023 12:07P Dictated by : MAN ROSADO DO This examination was interpreted and the report reviewed and electronically signed by: MAN ROSADO DO on Jun 09 2023 12:08PM EST [facility] Radiology Study observation (narrative) [facility] XR Chest PA and LateralOrder ed By: Ccf Provider on 06-09-2023 [facility] CBC W Auto Differential pane l (Bld)on 03-02-2023 Basophils (Bld) [#/Vol] 0.06 10*3/uL <0.11 k/uL [facility] Basophils/100 WBC (Bld) 0.5 % [facility] Differential cell count method Nom (Bld) Auto [facility] Eosinophils (Bld) [#/Vol] 0.44 10*3/uL <0.46 k/uL [facility] Eosinophils/100 WBC (Bld) 4.0 % [facility] Erythrocyte distribution width (RBC) [Ratio] 13.3 % 11.5 - 15.0 % [facility] Hematocrit (Bld) [Volume fraction] 44.9 % 39.0 - 51.0 % [facility] Hemoglobin (Bld) [Mass/Vol] 14.4 g/dL 13.0 - 17.0 g/dL [facility] Immature granulocytes (Bld) [#/Vol] 0.04 10*3/uL <0.10 k/uL [facility] Immature granulocytes/100 WBC (Bld) 0.4 % [facility] Lymphocytes (Bld) [#/Vol] 2.03 10*3/uL 1.00 - 4.00 k/uL [facility] Lymphocytes/100 WBC (Bld) 18.5 % [facility] MCH (RBC) [Entitic mass] 28.7 pg 26.0 - 34.0 pg [facility] MCHC (RBC) [Mass/Vol] 32.1 g/dL 30.5 - 36.0 g/dL [facility] MCV (RBC) [Entitic vol] 89.4 fL 80.0 - 100.0 fL [facility] Monocytes (Bld) [#/Vol] 1.22 10*3/uL High <0.87 k/uL [facility] Monocytes/100 WBC (Bld) 11.1 % [facility] Neutrophils (Bld) [#/Vol] 7.19 10*3/uL 1.45 - 7.50 k/uL [facility] Neutrophils/100 WBC (Bld) 65.5 % [facility] Nucleated RBC (Bld) [#/Vol] <0.01 k/uL [facility] Nucleated RBC/100 WBC (Bld) [Ratio] 0.0 /100 WBC [facility] Platelet mean volume (Bld) [Entitic vol] 11.5 fL 9.0 - 12.7 fL [facility] Platelets (Bld) [#/Vol] 259 10*3/uL 150 - 400 k/uL [facility] RBC (Bld) [#/Vol] 5.02 10*6/uL 4.20 - 6.0 0 m/uL [facility] WBC (Bld) [#/Vol] 10.98 10*3/uL 3.70 - 11 .00 k/uL [facility] XR ANKLE GENERAL 3V AP/LAT/O BL LEFTon 02-16-2023 [facility] XR Ankle - left AP and Later al and obliqueon 02-16-2023 IMPRESSION: Degenera tive changes in the left ankle with mild soft tissue swelling. No acute fracture seen. Patient can be reevaluated in 10-14 days if symptoms persist. Head Of Visual Merchandising: PSCB Transcribe Date/Time: Feb 16 2023 3:38P Dictated by : XOCHITL SHIPMAN MD This examination was interpreted and the report reviewed and electronically signed by: XOCHITL SHIPMAN MD on Feb 16 2023 3:40PM [facility] DIVISION OF RADIOLOGY * * *Final [...] the lateral malleolus. DIVISION OF RADIOLOGY Provider, [facility] - 02/16/2023 * * *Final Report* * [...] reevaluated in 10-14 days if symptoms persist. Head Of Visual Merchandising: BERNIE Transcribe Date/Time: Feb 16 2023 3:38P Dictated by : XOCHITL SHIPMAN MD This examination was interpreted and the report reviewed and electronically signed by: XOCHITL SHIPMAN MD on Feb 16 2023 3:40PM [facility] Radiology Study observation (narrative) [facility] XR Ankle - left AP and Later al and obliqueOrdered By: Cc Provider on 02-16-2023 [facility] XR Chest PA and Lateralon IMPRESSION: No acute radiographic abnormality. Head Of Visual Merchandising: [facility] Transcribe Date/Time: Jul 13 2021 10:18A Dictated by : SILVIO WORTHY MD This examination was interpreted and the report reviewed and electronically signed by: SILVIO WORTHY MD on Jul 13 2021 10:19AM [facility] DIVISION OF RADIOLOGY * * *Final [...] in the spine. DIVISION OF RADIOLOGY Provider, [facility] - 07/13/2021 * * *Final Report* * [...] spine. IMPRESSION IMPRESSION: No acute radiographic abnormality. Head Of Visual Merchandising: BERNIE Transcribe Date/Time: Jul 13 2021 10:18A Dictated by : SILVIO WORTHY MD This examination was interpreted and the report reviewed and electronically signed by: SILVIO WORTHY MD on Jul 13 2021 10:19AM EST [facility] Radiology Study observation (narrative) [facility] XR Chest PA and LateralOrder ed By: Ccf Provider on 07-13-2021 [facility] XR Ribs - right Views and est PAon 05-25-2021 IMPRESSION: No acute process is seen. Head Of Visual Merchandising: BERNIE Transcribe Date/Time: May 25 2021 4:16P [...] stable. DIVISION OF RADIOLOGY Provider, [facility] Maldonado [facility] - 05/25/2021 * * *Final Report* * [...] IMPRESSION IMPRESSION: No acute process is seen. Head Of Visual Merchandising: BERNIE Transcribe Date/Time: May 25 2021 4:16P Dictated by : SHAR ESTEBAN MD This examination was interpreted and the report reviewed and electronically signed by: SHAR ESTEBAN MD on May 25 2021 4:18PM EST [facility] Radiology Study observation (narrative) [facility] XR Ribs - right Views and Ch est PAOrdered By: Ccf Provider on 05-25-2021 [facility] XR Chest PA and Lateralon IMPRESSION: No acute radiographic abnormality is evident. Head Of Visual Merchandising: PSCB Transcribe Date/Time: Jan 24 2021 2:44P Dictated by : LILA SABA MD This examination was interpreted and the report reviewed and electronically signed by: LILA SABA MD on Jan 24 2021 2:47PM [facility] DIVISION OF RADIOLOGY * * *Final [...] the thoracic spine. DIVISION OF RADIOLOGY Provider, [facility] - 01/24/2021 * * *Final Report* * [...] IMPRESSION: No acute radiographic abnormality is evident. Head Of Visual Merchandising: PSCB Transcribe Date/Time: Jan 24 2021 2:44P Dictated by : LILA SABA MD This examination was interpreted and the report reviewed and electronically signed by: LILA SABA MD on Jan 24 2021 2:47PM [facility] Radiology Study observation (narrative) [facility] XR Chest PA and LateralOrder ed By: Ccf Provider on 01-24-2021 [facility] Vital Signs Date Time Vital Sign Value Performing Clinician Lucho saldaña 06-23-2024 14:37-0400 Body mass index (BMI) [Ratio] 39.56 kg/m2 Sunny Simin BIOMEDICAL ENGINEERING PROFESSOR.JIG GRINDER Work Phone: [facility] 06-23-2024 14:37-0400 Body weight 136 kg Sunny Simin BIOMEDICAL ENGINEERING PROFESSOR.JIG GRINDER Work Phone: [facility] 06-23-2024 14:37-0400 Diastolic blood pressure 77 mm[Hg] Sunny Simin BIOMEDICAL ENGINEERING PROFESSOR.JIG GRINDER Work Phone: [facility] 06-23-2024 14:37-0400 Heart rate 82 /min Sunny Simin BIOMEDICAL ENGINEERING PROFESSOR.JIG GRINDER Work Phone: [facility] 06-23-2024 14:37-0400 Respiratory rate 18 /min Sunny Simin BIOMEDICAL ENGINEERING PROFESSOR.JIG GRINDER Work Phone: [facility] 06-23-2024 14:37-0400 SaO2% (BldA) [Mass fraction] 95 % Sunny Simin BIOMEDICAL ENGINEERING PROFESSOR.JIG GRINDER Work Phone: [facility] 06-23-2024 14:37-0400 Systolic blood pressure 155 mm[Hg] Sunny Simin BIOMEDICAL ENGINEERING PROFESSOR.JIG GRINDER Work Phone: [facility] 06-20-2024 15:38-0400 Body height 185.4 cm Jeff Virgen MD Work Phone: [facility] 06-20-2024 15:38-0400 Body mass index (BMI) [Ratio] 39.76 kg/m2 Jeff Virgen MD Work Phone: [facility] 06-20-2024 15:38-0400 Body weight 136.71 kg Jeff Virgen MD Work Phone: [facility] 06-20-2024 15:38-0400 Diastolic blood pressure 56 mm[Hg] Jeff Virgen MD Work Phone: [facility] 06-20-2024 15:38-0400 Heart rate 80 /min Jeff Virgen MD Work Phone: [facility] 06-20-2024 15:38-0400 SaO2% (BldA) [Mass fraction] 94 % Jeff Virgen MD Work Phone: [facility] 06-20-2024 15:38-0400 Systolic blood pressure 132 mm[Hg] Jeff Virgen MD Work Phone: [facility] 04-09-2024 14:25-0400 Body mass index (BMI) [Ratio] 40.9 kg/m2 Andrew Pendlebury BIOMEDICAL ENGINEERING PROFESSOR.JIG GRINDER Work Phone: [facility] 04-09-2024 14:25-0400 Body temperature 98.8 [degF] [facility] BIOMEDICAL ENGINEERING PROFESSOR.JIG GRINDER Work Phone: [facility] 04-09-2024 14:25-0400 Body weight 140.6 kg [facility] BIOMEDICAL ENGINEERING PROFESSOR.JIG GRINDER Work Phone: [facility] 04-09-2024 14:25-0400 Diastolic blood pressure 84 mm[Hg] Andrew Pendlebury BIOMEDICAL ENGINEERING PROFESSOR.JIG GRINDER Work Phone: [facility] 04-09-2024 14:25-0400 Heart rate 94 /min Andrew Pendlebury BIOMEDICAL ENGINEERING PROFESSOR.JIG GRINDER Work Phone: [facility] 04-09-2024 14:25-0400 Respiratory rate 20 /min [facility] BIOMEDICAL ENGINEERING PROFESSOR.JIG GRINDER Work Phone: [facility] 04-09-2024 14:25-0400 SaO2% (BldA) [Mass fraction] 93 % [facility] BIOMEDICAL ENGINEERING PROFESSOR.JIG GRINDER Work Phone: [facility] 04-09-2024 14:25-0400 Systolic blood pressure 128 mm[Hg] Andrew Pendlebury BIOMEDICAL ENGINEERING PROFESSOR.JIG GRINDER Work Phone: [facility] 02-28-2024 11:50-0400 Diastolic blood pressure 86 mm[Hg] FERNY Travis PA-C Work Phone: [facility] 02-28-2024 11:50-0400 Systolic blood pressure 148 mm[Hg] NA Travis PA-C Work Phone: [facility] 02-28-2024 11:00-0400 Body mass index (BMI) [Ratio] 40.69 kg/m2 NA Travis PA-C Work Phone: [facility] 02-28-2024 11:00-0400 Body weight 139.89 kg NA Travis PA-C Work Phone: [facility] 02-28-2024 11:00-0400 Heart rate 85 /min NA Travis PA-C Work Phone: [facility] 02-28-2024 11:00-0400 SaO2% (BldA) [Mass fraction] 94 % NA Travis PA-C Work Phone: [facility] 02-04-2024 11:33-0400 Body mass index (BMI) [Ratio] 39.18 kg/m2 NA Travis PA-C Work Phone: [facility] 02-04-2024 11:33-0400 Body weight 134.72 kg NA Travis PA-C Work Phone: [facility] 02-04-2024 11:33-0400 Diastolic blood pressure 69 mm[Hg] NA Travis PA-C Work Phone: [facility] 02-04-2024 11:33-0400 Heart rate 73 /min NA Travis PA-C Work Phone: [facility] 02-04-2024 11:33-0400 Respiratory rate 18 /min NA Travis PA-C Work Phone: [facility] 02-04-2024 11:33-0400 SaO2% (BldA) [Mass fraction] 94 % NA Travis PA-C Work Phone: [facility] 02-04-2024 11:33-0400 Systolic blood pressure 113 mm[Hg] NA Travis PA-C Work Phone: [facility] 12-25-2023 13:44-0400 Body weight 130.18 kg Jeff Virgen MD Work Phone: [facility] 12-25-2023 13:44-0400 Diastolic blood pressure 80 mm[Hg] Jeff Virgen MD Work Phone: [facility] 12-25-2023 13:44-0400 Heart rate 73 /min Jeff Virgen MD Work Phone: [facility] 12-25-2023 13:44-0400 Respiratory rate 18 /min Jeff Virgen MD Work Phone: [facility] 12-25-2023 13:44-0400 SaO2% (BldA) [Mass fraction] 96 % Jeff Virgen MD Work Phone: [facility] 12-25-2023 13:44-0400 Systolic blood pressure 122 mm[Hg] Jeff Virgen MD Work Phone: [facility] 07-23-2023 14:18-0500 Diastolic blood pressure 70 mm[Hg] Jarvis Nicole MD Work Phone: [facility] 07-23-2023 14:18-0500 Heart rate 64 /min Jarvis Nicole MD Work Phone: [facility] 07-23-2023 14:18-0500 Respiratory rate 20 /min Jarvis Nicole MD Work Phone: [facility] 07-23-2023 14:18-0500 SaO2% (BldA) [Mass fraction] 96 % Jarvis Nicole MD Work Phone: [facility] 07-23-2023 14:18-0500 Systolic blood pressure 128 mm[Hg] Jarvis Nicole MD Work Phone: [facility] 06-09-2023 10:41-0400 Body temperature 98.6 [degF] Jarvis Nicole MD Work Phone: [facility] 06-09-2023 10:41-0400 Body weight 132.45 kg Jarvis Nicole MD Work Phone: [facility] 06-09-2023 10:41-0400 Diastolic blood pressure 68 mm[Hg] Jarvis Nicole MD Work Phone: [facility] 06-09-2023 10:41-0400 Heart rate 79 /min Jarvis Nicole MD Work Phone: [facility] 06-09-2023 10:41-0400 Respiratory rate 30 /min Jarvis Nicole MD Work Phone: [facility] 06-09-2023 10:41-0400 SaO2% (BldA) [Mass fraction] 93 % Jarvis Nicole MD Work Phone: [facility] 06-09-2023 10:41-0400 Systolic blood pressure 124 mm[Hg] Jarvis Nicole MD Work Phone: [facility] 06-06-2023 10:25-0400 Body height 185.4 cm Jeff Virgen MD Work Phone: [facility] 06-06-2023 10:25-0400 Body weight 134.17 kg Jeff Virgen MD Work Phone: [facility] 06-06-2023 10:25-0400 Diastolic blood pressure 64 mm[Hg] Jeff Virgen MD Work Phone: [facility] 06-06-2023 10:25-0400 Heart rate 77 /min Jeff Virgen MD Work Phone: [facility] 06-06-2023 10:25-0400 SaO2% (BldA) [Mass fraction] 97 % Jeff Virgen MD Work Phone: [facility] 06-06-2023 10:25-0400 Systolic blood pressure 130 mm[Hg] Jeff Virgen MD Work Phone: [facility] 05-18-2023 15:03-0400 Body height 185.4 cm NA Travis PA-C Work Phone: [facility] 05-18-2023 15:03-0400 Body temperature 97.11 [degF] NA Travis PA-C Work Phone: [facility] 05-18-2023 15:03-0400 Body weight 131 kg NA Travis PA-C Work Phone: [facility] 05-18-2023 15:03-0400 Diastolic blood pressure 64 mm[Hg] NA Travis PA-C Work Phone: [facility] 05-18-2023 15:03-0400 Heart rate 72 /min NA Travis PA-C Work Phone: [facility] 05-18-2023 15:03-0400 SaO2% (BldA) [Mass fraction] 96 % NA Travis PA-C Work Phone: [facility] 05-18-2023 15:03-0400 Systolic blood pressure 104 mm[Hg] NA Travis PA-C Work Phone: [facility] 05-01-2023 14:23-0400 Body temperature 97.9 [degF] NA Travis PA-C Work Phone: [facility] 05-01-2023 14:23-0400 Diastolic blood pressure 70 mm[Hg] NA Travis PA-C Work Phone: [facility] 05-01-2023 14:23-0400 Heart rate 80 /min NA Travis PA-C Work Phone: [facility] 05-01-2023 14:23-0400 Respiratory rate 20 /min NA Travis PA-C Work Phone: [facility] 05-01-2023 14:23-0400 SaO2% (BldA) [Mass fraction] 96 % NA Travis PA-C Work Phone: [facility] 05-01-2023 14:23-0400 Systolic blood pressure 118 mm[Hg] NA Travis PA-C Work Phone: [facility] 04-30-2023 14:11-0400 Body weight 132.9 kg NA Travis PA-C Work Phone: [facility] 04-30-2023 14:11-0400 Diastolic blood pressure 68 mm[Hg] NA Travis PA-C Work Phone: [facility] 04-30-2023 14:11-0400 Heart rate 75 /min NA Travis PA-C Work Phone: [facility] 04-30-2023 14:11-0400 Respiratory rate 18 /min NA Travis PA-C Work Phone: [facility] 04-30-2023 14:11-0400 SaO2% (BldA) [Mass fraction] 95 % NA Travis PA-C Work Phone: [facility] 04-30-2023 14:11-0400 Systolic blood pressure 114 mm[Hg] NA Travis PA-C Work Phone: [facility] 03-05-2023 15:22-0400 Body temperature 97.3 [degF] [facility] BIOMEDICAL ENGINEERING PROFESSOR.JIG GRINDER Work Phone: [facility] 03-05-2023 15:22-0400 Body weight 138.26 kg [facility] BIOMEDICAL ENGINEERING PROFESSOR.JIG GRINDER Work Phone: [facility] 03-05-2023 15:22-0400 Diastolic blood pressure 62 mm[Hg] Andrew Pendlebury BIOMEDICAL ENGINEERING PROFESSOR.JIG GRINDER Work Phone: [facility] 03-05-2023 15:22-0400 Heart rate 82 /min Andrew Pendlebury BIOMEDICAL ENGINEERING PROFESSOR.JIG GRINDER Work Phone: [facility] 03-05-2023 15:22-0400 Respiratory rate 20 /min [facility] BIOMEDICAL ENGINEERING PROFESSOR.JIG GRINDER Work Phone: [facility] 03-05-2023 15:22-0400 SaO2% (BldA) [Mass fraction] 94 % [facility] BIOMEDICAL ENGINEERING PROFESSOR.JIG GRINDER Work Phone: [facility] 03-05-2023 15:22-0400 Systolic blood pressure 120 mm[Hg] [facility] BIOMEDICAL ENGINEERING PROFESSOR.JIG GRINDER Work Phone: [facility] 03-02-2023 16:23-0400 Body weight 137.44 kg Jeff Virgen MD Work Phone: [facility] 03-02-2023 16:23-0400 Diastolic blood pressure 60 mm[Hg] Jeff Virgen MD Work Phone: [facility] 03-02-2023 16:23-0400 Heart rate 76 /min Jeff Virgen MD Work Phone: [facility] 03-02-2023 16:23-0400 SaO2% (BldA) [Mass fraction] 93 % Jeff Virgen MD Work Phone: [facility] 03-02-2023 16:23-0400 Systolic blood pressure 112 mm[Hg] Jeff Virgen MD Work Phone: [facility] 02-16-2023 14:38-0400 Diastolic blood pressure 80 mm[Hg] Denisha Haagen BIOMEDICAL ENGINEERING PROFESSOR.JIG GRINDER Work Phone: [facility] 02-16-2023 14:38-0400 Heart rate 82 /min Denisha Haagen BIOMEDICAL ENGINEERING PROFESSOR.JIG GRINDER Work Phone: [facility] 02-16-2023 14:38-0400 Respiratory rate 16 /min Denisha Haagen BIOMEDICAL ENGINEERING PROFESSOR.JIG GRINDER Work Phone: [facility] 02-16-2023 14:38-0400 SaO2% (BldA) [Mass fraction] 94 % Denisha Haagen BIOMEDICAL ENGINEERING PROFESSOR.JIG GRINDER Work Phone: [facility] 02-16-2023 14:38-0400 Systolic blood pressure 142 mm[Hg] Denisha Haagen BIOMEDICAL ENGINEERING PROFESSOR.JIG GRINDER Work Phone: [facility] 01-19-2023 14:18-0400 Body weight 137.44 kg Jeff Virgen MD Work Phone: [facility] 01-19-2023 14:18-0400 Diastolic blood pressure 72 mm[Hg] Jeff Virgen MD Work Phone: [facility] 01-19-2023 14:18-0400 Heart rate 86 /min Jeff Virgen MD Work Phone: [facility] 01-19-2023 14:18-0400 Respiratory rate 16 /min Jeff Virgen MD Work Phone: [facility] 01-19-2023 14:18-0400 Systolic blood pressure 134 mm[Hg] Jeff Virgen MD Work Phone: [facility] 11-29-2022 09:33-0400 Body height 185.4 cm Jeff Virgen MD Work Phone: [facility] 11-29-2022 09:33-0400 Body weight 137.89 kg Jeff Virgen MD Work Phone: [facility] 11-29-2022 09:33-0400 Diastolic blood pressure 68 mm[Hg] Jeff Virgen MD Work Phone: [facility] 11-29-2022 09:33-0400 Heart rate 85 /min Jeff Virgen MD Work Phone: [facility] 11-29-2022 09:33-0400 SaO2% (BldA) [Mass fraction] 96 % Jeff Virgen MD Work Phone: [facility] 11-29-2022 09:33-0400 Systolic blood pressure 136 mm[Hg] Jeff Virgen MD Work Phone: [facility] 05-31-2022 10:38-0400 Body height 185.4 cm Jeff Virgen MD Work Phone: [facility] 05-31-2022 10:38-0400 Body weight 136.08 kg Jeff Virgen MD Work Phone: [facility] 05-31-2022 10:38-0400 Diastolic blood pressure 68 mm[Hg] Jeff Virgen MD Work Phone: [facility] 05-31-2022 10:38-0400 Heart rate 87 /min Jeff Virgen MD Work Phone: [facility] 05-31-2022 10:38-0400 SaO2% (BldA) [Mass fraction] 94 % Jeff Virgen MD Work Phone: [facility] 05-31-2022 10:38-0400 Systolic blood pressure 136 mm[Hg] Jeff Virgen MD Work Phone: [facility] 04-08-2022 14:43-0400 Body temperature 97.5 [degF] Andrew Pendlebury BIOMEDICAL ENGINEERING PROFESSOR.JIG GRINDER Work Phone: [facility] 04-08-2022 14:43-0400 Body weight 137.26 kg [facility] BIOMEDICAL ENGINEERING PROFESSOR.JIG GRINDER Work Phone: [facility] 04-08-2022 14:43-0400 Diastolic blood pressure 60 mm[Hg] Andrew Pendlebury BIOMEDICAL ENGINEERING PROFESSOR.JIG GRINDER Work Phone: [facility] 04-08-2022 14:43-0400 Heart rate 80 /min Andrew Pendlebury BIOMEDICAL ENGINEERING PROFESSOR.JIG GRINDER Work Phone: [facility] 04-08-2022 14:43-0400 Respiratory rate 21 /min [facility] BIOMEDICAL ENGINEERING PROFESSOR.JIG GRINDER Work Phone: [facility] 04-08-2022 14:43-0400 SaO2% (BldA) [Mass fraction] 97 % [facility] BIOMEDICAL ENGINEERING PROFESSOR.JIG GRINDER Work Phone: [facility] 04-08-2022 14:43-0400 Systolic blood pressure 136 mm[Hg] Andrew Pendlebury BIOMEDICAL ENGINEERING PROFESSOR.JIG GRINDER Work Phone: [facility] 03-03-2022 10:26-0400 Body weight 136.53 kg Jeff Virgen MD Work Phone: [facility] 03-03-2022 10:26-0400 Diastolic blood pressure 74 mm[Hg] Jeff Virgen MD Work Phone: [facility] 03-03-2022 10:26-0400 Heart rate 78 /min Jeff Virgen MD Work Phone: [facility] 03-03-2022 10:26-0400 SaO2% (BldA) [Mass fraction] 95 % Jeff Virgen MD Work Phone: [facility] 03-03-2022 10:26-0400 Systolic blood pressure 124 mm[Hg] Jeff Virgen MD Work Phone: [facility] 01-27-2022 14:46-0400 Body temperature 97.9 [degF] Saad Park BIOMEDICAL ENGINEERING PROFESSOR.JIG GRINDER Work Phone: [facility] 01-27-2022 14:46-0400 Body weight 136.62 kg Saad Park BIOMEDICAL ENGINEERING PROFESSOR.JIG GRINDER Work Phone: [facility] 01-27-2022 14:46-0400 Diastolic blood pressure 74 mm[Hg] Saad Park BIOMEDICAL ENGINEERING PROFESSOR.JIG GRINDER Work Phone: [facility] 01-27-2022 14:46-0400 Heart rate 85 /min Saad Park BIOMEDICAL ENGINEERING PROFESSOR.JIG GRINDER Work Phone: [facility] 01-27-2022 14:46-0400 Respiratory rate 18 /min Saad Park BIOMEDICAL ENGINEERING PROFESSOR.JIG GRINDER Work Phone: [facility] 01-27-2022 14:46-0400 SaO2% (BldA) [Mass fraction] 95 % Saad Park BIOMEDICAL ENGINEERING PROFESSOR.JIG GRINDER Work Phone: [facility] 01-27-2022 14:46-0400 Systolic blood pressure 128 mm[Hg] Saad Park BIOMEDICAL ENGINEERING PROFESSOR.JIG GRINDER Work Phone: [facility] 01-12-2022 14:41-0400 Diastolic blood pressure 75 mm[Hg] Kaitlyn Cuevasgo [facility] Work Phone: [facility] 01-12-2022 14:41-0400 Heart rate 74 /[facility] 01-12-2022 14:41-0400 Systolic blood pressure 132 mm[Hg] [facility] Encounters Encounter Date Encounter Type Care Provider Facility Start: 07-09-2024 End: 07-09-2024 Refill Jeff Virgen MD Work Phone: [facility] Comment on above: Refill Request Start: 06-23-2024 End: 06-23-2024 ambulatory M LUIS TRAVIS Facility:[facility] Start: 06-23-2024 End: 06-23-2024 Patient encounter procedure Sunny Duval BIOMEDICAL ENGINEERING PROFESSOR.JIG GRINDER Work Phone: Neurology Comment on above: Snoring (Primary Dx) ; Witnessed episode of apnea; Nocturnal leg movements; Frequent nocturnal awakening; Nocturia Start: 06-23-2024 End: 06-24-2024 Telephone encounter Jeff Virgen MD Work Phone: [facility] [place] Comment on above: Results Start: 06-20-2024 End: 06-20-2024 Refill Zoila Wright APRN.JIG GRINDER Work Phone: [facility] Comment on above: Refill Request Essential [...] Telephone encounter Jeff Virgen MD Work Phone: [facility] [place] Comment on above: Patient Question Start: 06-17-2024 End: 06-17-2024 Telephone encounter Jeff Virgen MD Work Phone: [facility] [place] Start: 06-16-2024 End: 06-16-2024 ambulatory Jeff Virgen MD Work Phone: [facility] [place] Comment on above: Scooter Start: 06-11-2024 End: 06-11-2024 ambulatory JEFF VIRGEN Facility:[facility] Start: 06-08-2024 End: 06-09-2024 Refill Jeff Virgen MD Work Phone: [facility] [place] Comment on above: Refill Request Start: 05-31-2024 End: 05-31-2024 ambulatory Sachin Theodore RN NURSE [facility]OOK UP Comment on above: Dizziness Start: 05-31-2024 End: 05-31-2024 Patient encounter procedure Amairani Mcclendon APRN.JIG GRINDER Work Phone: [facility] Comment on above: Generalized weakness (Primary Dx) Start: 05-07-2024 End: 05-07-2024 Chart abstracting Jeff Virgen MD Work Phone: [facility] [place] Start: 05-05-2024 End: 05-05-2024 Refill Jeff Virgen MD Work Phone: [facility] [place] Comment on above: Refill Request Start: 04-14-2024 Refill Jeff Virgen MD Work Phone: [facility] Comment on above: Refill Request Start: 04-12-2024 End: 04-12-2024 Emergency department patient visit MELVINCOX BRANSON Facility:[facility] Start: 04-11-2024 ambulatory Randi Turner RN NURSE [facility] UP Comment on above: Patient Update; Bloo d In Urine Encounter for medica l assessment (Primary Dx) Start: 04-11-2024 Patient encounter status Magalie Bardales DO Work Phone: [facility] Work Phone: Start: 04-11-2024 Telemedicine consult ation with patient Magalie Bardales DO Work Phone: [facility] Start: 04-10-2024 Refill Jeff Virgen MD Work Phone: [facility] Comment on above: Refill Request Start: 04-09-2024 End: 04-09-2024 ambulatory JEFF VIRGEN Facility:[facility] Start: 04-09-2024 End: 04-09-2024 Office outpatient visit 15 minutes Andrew Guallpa APRN.JIG GRINDER Work Phone: [facility] Comment on above: Abrasion of left verma d, initial encounter (Primary Dx) Start: 04-08-2024 ambulatory Jeff Virgen MD Work Phone: [facility] [place] Comment on above: Scooter Start: 03-21-2024 ambulatory M Luis Brett on PA-C Work Phone: [facility] [place] Comment on above: Test Results Start: 03-21-2024 Telephone encounter Osvaldo Travis PA-C Work Phone: [facility] [place] Start: 03-19-2024 Telephone encounter Osvaldo Travis PA-C Work Phone: [facility] [place] Comment on above: Results Start: 03-19-2024 End: 03-19-2024 ambulatory Osvaldo TRAVIS Facility:[facility] Start: 03-17-2024 End: 03-17-2024 ambulatory Osvaldo TRAVIS Facility:[facility] Start: 03-06-2024 Refill Zoila Wright APRN.CNP Work Phone: [facility] [place] Comment on above: Refill Request Start: 02-28-2024 End: 02-28-2024 ambulatory Osvaldo TRAVIS Facility:[facility] Start: 02-28-2024 End: 02-28-2024 Patient encounter procedure Osvaldo Travis PA-C Work Phone: [facility] [place] Comment on above: 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); Venous incompetence; Bilateral leg edema; SOB (shortness of breath); Weight gain; CJ (obstructive sleep apnea); Hypersomnolence; Cushingoid facies Start: 02-12-2024 End: 02-12-2024 ambulatory Nurse Intm/Famp Triage [facility] Work Phone: Nurse Phone Triage Start: 02-12-2024 End: 02-12-2024 Telephone follow-up Nurse Intm/Famp Triage [facility] Work Phone: Nurse Phone Triage Comment on above: Follow Up Start: 02-10-2024 ambulatory Osvaldo ruth PA-C Work Phone: [facility] [place] Start: 02-10-2024 Follow-up encounter Osvaldo Travis PA-C Work Phone: [facility] [place] Comment on above: Follow Up Weight Start: 02-04-2024 End: 02-04-2024 ambulatory Jeff Virgen MD Work Phone: [facility] [place] Comment on above: Edema Start: 02-04-2024 End: 02-04-2024 Subsequent hospital visit by physician Dominick [facility] [place] Work Phone: Radiology Comment on above: SOB (shortness of br eath) [R06.02] Start: 02-04-2024 End: 02-04-2024 Patient encounter procedure Osvaldo Travis PA-C Work Phone: [facility] [place] Comment on above: SOB (shortness of br eath) (Primary Dx); Bilateral leg edema; Weight increase Start: 01-26-2024 ambulatory Jeff Virgen MD Work Phone: [facility] [place] Comment on above: ACCU CHECK TEST STRI PS Start: 01-18-2024 Refill Jarvis Nicole MD Work Phone: [facility] [place] Comment on above: Refill Request Famotidine Start: 01-09-2024 Refill Zoila Wright BIOMEDICAL ENGINEERING PROFESSOR.JIG GRINDER Work Phone: [facility] [place] Comment on above: Refill Request Start: 01-01-2024 ambulatory Jeff Virgen MD Work Phone: [facility] [place] Comment on above: Scooter Start: 01-01-2024 Telephone encounter Jeff Virgen MD Work Phone: [facility] [place] Comment on above: Epi méndez Start: 12-30-2023 ambulatory Jeff Virgen MD Work Phone: [facility] [place] Comment on above: Scooter Start: 12-25-2023 End: 12-25-2023 ambulatory JEFF VIRGEN Facility:[facility] Start: 12-25-2023 End: 12-25-2023 Patient encounter procedure Jeff Virgen MD Work Phone: [facility] [place] Comment on above: Paroxysmal atrial fi brillation [...] Start: 11-28-2023 End: 11-28-2023 ambulatory JEFF VIRGEN Facility:[facility] Start: 11-14-2023 Refill Jeff Virgen MD Work Phone: [facility] [place] Comment on above: Refill Request Medication Question Orders Start: 11-02-2023 Refill Osvaldo Warren Brett on PA-C Work Phone: [facility] [place] Comment on above: Refill Request Start: 10-12-2023 Refill Jeff Virgen MD Work Phone: [facility] Comment on above: Refill Request Start: 09-06-2023 End: 09-06-2023 Subsequent hospital visit by physician Xr [facility] [place] Work Phone: Radiology Comment on above: Sinobronchitis [J32. 9, J40] Start: 09-06-2023 End: 09-06-2023 ambulatory [facility] MD [facility] Comment on above: Coughing Up Blood Start: 08-27-2023 Refill [facility] MD [facility] Comment on above: Refill Request Start: 08-07-2023 Telephone encounter Jeff [facility]gen MD [facility] Comment on above: Patient Assistance ( [employer] (Basaglar and Humalog)) Start: 07-23-2023 End: 07-23-2023 Subsequent hospital visit by physician Xr [facility] [place] Work Phone: Radiology Comment on above: Acute hip pain, righ t [M25.551] Start: 07-23-2023 End: 07-23-2023 Patient encounter procedure Jarvis Nicole MD [facility] Comment on above: Acute hip pain, righ t (Primary Dx) Start: 07-23-2023 End: 07-23-2023 ambulatory JEFF VIRGEN Facility:[facility] Start: 07-13-2023 Telephone encounter Jeff Virgen MD Work Phone: [facility] [place] Start: 06-19-2023 Refill Jeff Virgen MD Work Phone: [facility] [place] Comment on above: Refill Request Start: 06-09-2023 ambulatory Adele murrieta RN NURSE [facility] UP Comment on above: Viral Syndrome Start: 06-09-2023 End: 06-09-2023 Subsequent hospital visit by physician Xr [facility] [place] Work Phone: Radiology Comment on above: Viral URI with cough [J06.9] Start: 06-09-2023 End: 06-09-2023 Patient encounter procedure Jarvis Nicole MD Work Phone: [facility] [place] Comment on above: Viral URI with cough (Primary Dx); Suspected COVID-19 virus infection; Bronchitis Start: 06-07-2023 Refill Jeff Virgen MD Work Phone: [facility] [place] Comment on above: Refill Request Start: 06-06-2023 End: 06-06-2023 Patient encounter procedure Jeff Virgen MD Work Phone: [facility] [place] Comment on above: Essential hypertensi on (Primary Dx); Encounter for immunization; Paroxysmal atrial fibrillation (HCC); Mixed hyperlipidemia; Schizophrenia, chronic condition (HCC); Chronic anticoagulation; Type 2 diabetes mellitus with microalbuminuria, with long-term current use of insulin (HCC); Restrictive lung disease Start: 06-04-2023 Telephone encounter Jeff Virgen MD Work Phone: [facility] [place] Comment on above: patient question/lab s Start: 05-18-2023 End: 05-18-2023 Patient encounter procedure Osvaldo Travis PA-C Work Phone: [facility] [place] Comment on above: Near syncope (Primar y Dx); Fall, initial encounter; Acute upper respiratory infection; Morbid obesity (HCC) Start: 05-16-2023 Refill Jeff Virgen MD Work Phone: [facility] [place] Comment on above: Refill Request Start: 05-11-2023 Telephone encounter Jeff Virgen MD Work Phone: [facility] Comment on above: Forms Start: 05-01-2023 End: 05-01-2023 Patient encounter procedure Osvaldo Travis PA-C Work Phone: [facility] [place] Comment on above: Encounter for post s urgical wound check (Primary Dx) Start: 04-30-2023 End: 04-30-2023 Patient encounter procedure Osvaldo Travis PA-C Work Phone: [facility] [place] Comment on above: Inflamed acrochordon (Primary Dx); Seborrheic keratoses, inflamed Start: 04-26-2023 ambulatory Jeff Virgen MD Work Phone: [facility] [place] Comment on above: Skin Tags Removal Start: 04-12-2023 Refill Jeff Virgen MD Work Phone: [facility] Comment on above: Refill Request Start: 03-19-2023 ambulatory Jeff Virgen MD Work Phone: [facility] Start: 03-19-2023 Patient encounter procedure Shannon Virgen MD Work Phone: [facility] [place] Comment on above: Appointment Start: 03-05-2023 End: 03-05-2023 Office outpatient visit 15 minutes Andrew Guallpa APRN.CNP Work Phone: [facility] Comment on above: Acute constipation ( Primary Dx) Start: 03-02-2023 End: 03-02-2023 Patient encounter procedure Jeff Virgen MD Work Phone: [facility] [place] Comment on above: Nausea (Primary Dx); Hypoglycemia; Type 2 diabetes mellitus with microalbuminuria, with long-term current use of insulin (HCC); Leukocytosis, unspecified type; Abnormal serum level of lipase; Benign prostatic hyperplasia with lower urinary tract symptoms, symptom details unspecified; Urinary retention Start: 02-22-2023 Refill Jeff Virgen MD Work Phone: [facility] [place] Comment on above: Refill Request (medi cation question ) Start: 02-16-2023 End: 02-16-2023 Subsequent hospital visit by physician Dominick [facility] [place] Work Phone: Radiology Comment on above: Acute left ankle stone n [M25.572] Start: 02-16-2023 End: 02-16-2023 Office outpatient visit 15 minutes Denisha Shepard APRN.JIG GRINDER Work Phone: [facility] [place] Comment on above: Acute left ankle stone n (Primary Dx) Start: 02-16-2023 Telephone encounter Denisha hess APRN.JIG GRINDER Work Phone: [facility] [place] Comment on above: Results Start: 02-16-2023 Unlisted evaluation and management service Denisha Shepard APRN.JIG GRINDER Work Phone: [facility] [place] Comment on above: Opened In Error Start: 02-14-2023 End: 02-14-2023 Nursing evaluation of patient and report Nurse Jerilyn [facility] Work Phone: General Surgery Comment on above: Lesion of subcutaneo us tissue (Primary Dx) Start: 01-19-2023 End: 01-19-2023 Patient encounter procedure Jeff Virgen MD Work Phone: [facility] [place] Comment on above: Skin mass (Primary D x) Start: 11-29-2022 End: 11-29-2022 Patient encounter procedure Jeff Virgen MD Work Phone: [facility] Comment on above: Chest pain, unspecif ied type (Primary Dx); Leukocytosis, unspecified type; Type 2 diabetes mellitus with microalbuminuria, with long-term current use of insulin (HCC); Schizophrenia, chronic condition (HCC); Paroxysmal atrial fibrillation (HCC); Essential hypertension; Pure hypercholesterolemia Start: 11-25-2022 Telephone encounter Jeff Virgen MD Work Phone: [facility] [place] Comment on above: Orders Start: 11-22-2022 Patient Outreach Jeff perez MD Work Phone: [facility] Comment on above: Transition Of Care ( [facility] 11/21-11/21 dx: chest pain) Start: 11-10-2022 Refill Jeff Virgen MD Work Phone: [facility] [place] Comment on above: Refill Request Start: 10-26-2022 Telephone encounter Kaitlyn perez [facility] Work Phone: [facility] Comment on above: Medication Question Start: 10-16-2022 ambulatory Kaitlyn Hernández [facility] Work Phone: [facility] Comment on above: Carmela free trial ca rd Start: 10-16-2022 E-mail encounter deloris m caregiver Kaitlyn Hernández [facility] Work Phone: [facility] Start: 10-16-2022 Telephone encounter Kaitlyn perez [facility] Work Phone: [facility] Comment on above: Medication Question Start: 10-03-2022 Refill Jeff Virgen MD Work Phone: [facility] [place] Comment on above: Refill Request Start: 09-29-2022 Telephone encounter Kaitlyn perez [facility] Work Phone: [facility] Comment on [...] stomach Start: 06-22-2022 Telephone encounter Kaitlyn perez [facility] Work Phone: [facility] Comment on above: Forms ([place] good assistance application) Start: 06-22-2022 End: 06-22-2022 Patient encounter procedure Kaitlyn Hernández [facility] Work Phone: [facility] Comment on above: Type 2 diabetes debbie itus without complication, with long-term current use of insulin ([facility]) (Primary Dx) Start: 05-31-2022 End: 05-31-2022 Patient encounter procedure Jeff Virgen MD Work Phone: [facility] [place] Comment on above: Essential hypertensi on (Primary Dx); Paroxysmal atrial fibrillation (HCC); Pure hypercholesterolemia; Type 2 diabetes mellitus with microalbuminuria, with long-term current use of insulin (HCC); Chronic anticoagulation; Monocytosis; Need for influenza vaccination Start: 05-08-2022 Refill Jeff Virgen MD Work Phone: [facility] Comment on above: Refill Request Start: 04-08-2022 End: 04-08-2022 Patient encounter procedure Andrew Guallpa APRN.[facility] Work Phone: [facility] Comment on above: Chest pain, unspecif ied type (Primary Dx); Accidental medication error, initial encounter Start: 03-23-2022 Telephone encounter Kaitlyn perez [facility] Work Phone: [facility] Comment on above: Forms (Basaglar PAP) Start: 03-23-2022 End: 03-23-2022 Patient encounter procedure Kaitlyn Hernández [facility] Work Phone: [facility] Comment on above: Type 2 diabetes debbie itus without complication, with long-term current use of insulin (HCC) (Primary Dx); Essential hypertension Start: 03-06-2022 Telephone encounter Jeff Virgen MD Work Phone: [facility] [place] Comment on above: Forms ([employer] a pplication) Medication Question Start: 03-03-2022 End: 03-03-2022 Patient encounter procedure Jeff Virgen MD Work Phone: [facility] [place] Comment on above: Essential hypertensi on (Primary Dx); Pure hypercholesterolemia; Paroxysmal atrial fibrillation (HCC); Type 2 diabetes mellitus with microalbuminuria, with long-term current use of insulin (HCC); Chronic anticoagulation; Need for hepatitis C screening test Start: 02-09-2022 Telephone encounter Jeff Virgen MD Work Phone: [facility] [place] Comment on above: indigent med Start: 02-06-2022 Telephone encounter Jeff Virgen MD Work Phone: [facility] [place] Comment on above: Patient Request Start: 02-03-2022 End: 02-03-2022 Patient encounter procedure Papito Castano DO Work Phone: [facility] [place] Comment on above: Gastrocnemius tear, right, initial encounter (Primary Dx) Start: 02-02-2022 Refill Jeff Virgen MD Work Phone: [facility] [place] Comment on above: Refill Request Start: 02-01-2022 Refill Jeff Virgen MD Work Phone: [facility] [place] Comment on above: Refill Request (michael ent assistance ) Start: 01-31-2022 Refill Jeff Virgen MD Work Phone: [facility] [place] Comment on above: Prescription Refills Start: 01-27-2022 End: 01-27-2022 Patient encounter procedure Saad Park APRN.CNP Work Phone: [facility] Comment on above: Strain of calf muscl e, right, initial encounter (Primary Dx) Start: 01-12-2022 End: 01-12-2022 Patient encounter procedure Kaitlyn Hern[facility]dez [facility] [facility] Work Phone: [facility] Comment on above: Type 2 diabetes debbie itus without complication, with long-term current use of insulin (HCC) (Primary Dx) Refill Request Start: 12-30-2021 Telephone encounter Jeff Virgen MD Work Phone: [facility] [place] Comment on above: Medication Problem Start: 12-29-2021 Refill Jeff Virgen MD Work Phone: [facility] [place] Comment on above: Refill Request Start: 12-15-2021 Telephone encounter Kaitlyn perez [facility] Work Phone: [facility] Comment on above: Forms ([employer] PAP ) Start: 12-13-2021 Telephone encounter Jeff Virgen MD Work Phone: [facility] [place] Comment on above: Medication Problem Start: 12-12-2021 Refill Jeff Virgen MD Work Phone: [facility] [place] Comment on above: Refill Request Start: 07-13-2021 End: 07-13-2021 Subsequent hospital visit by physician [facility]r [facility] [place] Work Phone: Radiology Comment on above: SOB (shortness of br eath) [R06.02] Start: 05-25-2021 End: 05-25-2021 Subsequent hospital visit by physician [facility] [place] Work Phone: Radiology Comment on above: phone apt Start: 01-24-2021 End: 01-24-2021 Subsequent hospital visit by physician [facility]r [facility] [place] Work Phone: Radiology Comment on [...] exam ches t 2 views Anum Cheung BIOMEDICAL ENGINEERING PROFESSOR.JIG GRINDER Work Phone: Start: 07-23-2023 Radex hip unilateral with pelvis 2-3 views Jarvis Nicole MD Work Phone: Start: 06-09-2023 Radiologic exam ches t 2 views Jarvis Nicole MD Work Phone: Start: 06-06-2023 INFLUENZA VACCINE, P RSV FREE, AGE 65+ YR, HIGH DOSE, QUADRIVALENT (FLUZONE HIGH-DOSE) Jeff Virgen MD Work Phone: Start: 02-16-2023 Radex ankle complete minimum 3 views Denisha Shepard BIOMEDICAL ENGINEERING PROFESSOR.JIG GRINDER Work Phone: Start: 05-31-2022 INFLUENZA SEASONAL QUADRIVALENT [...] exam ches t 2 views Fito Membreno BIOMEDICAL ENGINEERING PROFESSOR.JIG GRINDER, DNP Work Phone: Start: 07-16-2018 Adult depression screening assessment Jeff Virgen MD Work Phone: Laboratory test resu lt abnormal Abnormal serum level of lipase Jeff Virgen MD Work Phone: Plan of Treatment Date Care Activity Detail Author Start: 06-20-2025 Annual PCP Team People Greeter myriam Disease Visit Annual PCP Team Chronic Disease Visit [facility] Start: 06-20-2025 Covid-19 Vaccine ( season) Covid-19 Vaccine ( season) [facility] Comment on above: Postponed from 05/18 (Declined at this time) Start: 06-20-2025 Diabetic foot examination Diabetic F oot Exam [facility] Start: 06-20-2025 Glaucoma screening Dilated Retinal E xam [facility] Start: 06-20-2025 Shingrix Vaccine (1 of 2) So grix Vaccine (1 of 2) [facility] Comment on above: Postponed from 04/07 (Declined at this time) Start: 06-20-2025 Urine microalbumin profile DTaP,Tdap,Td Vaccine (1 - Tdap) [facility] Comment on above: Postponed from 04/07 (Declined at this time) Start: 02-27-2025 Annual PCP Team People Greeter myriam Disease Visit Annual PCP Team Chronic Disease Visit [facility] Start: 02-03-2025 Annual PCP Team People Greeter myriam Disease Visit Annual PCP Team Chronic Disease Visit [facility] Start: 02-03-2025 BP Controlled (<130/80) BP Controlle d (<130/80) [facility] Start: 12-24-2024 Annual PCP Team People Greeter myriam Disease Visit Annual PCP Team Chronic Disease Visit [facility] Start: 12-24-2024 Anxiety Screening Anxiety Screening [facility] Start: 12-24-2024 Covid-19 Vaccine ( season) Covid-19 Vaccine ( season) [facility] Comment on above: Postponed from 05/18 (Declined at this time) Start: 12-24-2024 Depression Screening Depression Scre ening [facility] Start: 12-19-2024 End: 12-19-2024 Patient encounter procedure 12/19/2024 1:40 PM EDT Office Visit Family [facility] [address] [place] [phone] Jeff Virgen MD [address] [place] [id number] 6 mo follow up Family [facility] Comment on above: 6 mo follow up Start: 12-09-2024 Hemoglobin A1c measurement HbA1C [facility] Start: 11-27-2024 Hepatitis B screening Urine Al bumin:Creatinine Ratio [facility] Start: 11-27-2024 Hepatitis B surface antibody level LDL Cholesterol [facility] Start: 11-07-2024 Hemoglobin A1c measurement HbA1C [facility] Start: 09-06-2024 Annual PCP Team People Greeter myriam Disease Visit Annual PCP Team Chronic Disease Visit [facility] Start: 09-06-2024 BP Controlled (<130/80) BP Controlle d (<130/80) [facility] Start: 09-06-2024 RSV Vaccine (1 - 1-d ose 60+ series) RSV Vaccine (1 - 1-dose 60+ series) [facility] Comment on above: Postponed from 04/07 (Declined at this time) Start: 09-06-2024 RSV Vaccine (1 - 1-d ose 75+ series) RSV Vaccine (1 - 1-dose 75+ series) [facility] Comment on above: Postponed from 04/07 (Declined at this time) Start: 07-25-2024 End: 07-25-2024 ambulatory 07/25/2024 1:15 PM EST Results Only [facility] [address] [place] [address] Labs [facility] Comment on above: Labs Start: 07-23-2024 Annual PCP Team People Greeter myriam Disease Visit Annual PCP Team Chronic Disease Visit [facility] Start: 07-23-2024 BP Controlled (<130/80) BP Controlle d (<130/80) [facility] Start: 06-25-2024 End: 09-24-2024 Comprehensive metabolic 2000 panel - Serum or Plasma COMP METABOLIC PANEL Lab Routine Psoriatic arthritis (HCC) Expected: 06/25/2024, Expires: 09/24/2024 [facility] Work Phone: Comment on above: Expected: 06/25/2024 , Expires: 09/24/2024 Start: 06-25-2024 End: 09-24-2024 Hemoglobin A1c in Blood HGB A1C Lab Routine Type 2 diabetes mellitus without complication, with long-term current use of insulin ([facility]) Expected: 06/25/2024, Expires: 09/24/2024 [facility] Work Phone: Comment on above: Expected: 06/25/2024 , Expires: 09/24/2024 Start: 06-23-2024 End: 06-23-2024 Patient encounter procedure 06/23/2024 2:30 PM EDT Office Visit Neurology [address] [place], [place] [id number] Sunny Duval APRN.JIG GRINDER [address] [place] [address] CJ (obstructive sleep apnea) [G47.33] Neurology Comment on above: CJ (obstructive sle ep apnea) [G47.33] Start: 06-20-2024 End: 06-20-2024 Patient encounter procedure 06/20/2024 3:40 PM EDT Office Visit [facility] [address] [place], [place] [address] Jeff Virgen MD [address] [place], [place] [id number] Blood sugar levels [facility] [place] Comment on above: Blood sugar levels Start: 06-20-2024 End: 09-19-2024 25-hydroxyvitamin D3 [Mass/volume] in Serum or Plasma [facility] Work Phone: Comment on above: Expected: 06/20/2024 , Expires: 09/19/2024 Start: 06-20-2024 End: 09-19-2024 CBC W Auto Differential panel - Blood [facility] Comment on above: Expected: 06/20/2024 , Expires: 09/19/2024 Start: 06-20-2024 End: 09-19-2024 Creatine kinase [Enzymatic activity/volume] in Serum or Plasma [facility] Comment on above: Expected: 06/20/2024 , Expires: 09/19/2024 Start: 06-20-2024 End: 09-19-2024 Thyrotropin [Units/volume] in Serum or Plasma [facility] Comment on above: Expected: 06/20/2024 , Expires: 09/19/2024 Start: 06-18-2024 Glaucoma screening Dilated Retinal E xam [facility] Start: 06-09-2024 Annual PCP Team People Greeter myriam Disease Visit Annual PCP Team Chronic Disease Visit [facility] Start: 06-09-2024 BP Controlled (<130/80) BP Controlle d (<130/80) [facility] Start: 06-06-2024 3 comp foot exam completed Diabetic Foot Exam [facility] Start: 06-06-2024 Annual PCP Team People Greeter myriam Disease Visit Annual PCP Team Chronic Disease Visit [facility] Start: 06-06-2024 Diabetic foot examination Diabetic F oot Exam [facility] Start: 06-06-2024 Hepatitis B Vaccine (1 of 3 - Risk 3-dose series) Hepatitis B Vaccine (1 of 3 - Risk 3-dose series) [facility] Comment on above: Postponed from 04/07 (Declined at this time) Start: 05-18-2024 ANNUAL PCP TEAM SAP TECHNICAL DEVELOPER MYRIAM DISEASE VISIT ANNUAL PCP TEAM CHRONIC DISEASE VISIT [facility] Start: 05-18-2024 BP CONTROLLED (<130/80) BP CONTROLLE D (<130/80) [facility] Start: 05-18-2024 Covid-19 Vaccine (1 - 2023-24 season) Covid-19 Vaccine ( season) [facility] Start: 05-18-2024 Covid-19 Vaccine ( season) Covid-19 Vaccine () [facility] Start: 05-18-2024 Influenza vaccination Influenza Vacc ine (#1) [facility] Start: 05-01-2024 ANNUAL PCP TEAM SAP TECHNICAL DEVELOPER MYRIAM DISEASE VISIT ANNUAL PCP TEAM CHRONIC DISEASE VISIT [facility] Start: 05-01-2024 BP CONTROLLED (<130/80) BP CONTROLLE D (<130/80) [facility] Start: 04-30-2024 COVID-19 VACCINE (#1) COVID-19 VACCI NE (#1) [facility] Comment on above: Postponed from 10/08 (Declined at this time) Start: 04-30-2024 SHINGRIX VACCINE (1 of 2) SO GRIX VACCINE (1 of 2) [facility] Comment on above: Postponed from 04/07 (Insurance Coverage) Start: 04-30-2024 Urine microalbumin profile [facility] Comment on above: Postponed from 04/07 (Insurance Coverage) Start: 04-30-2024 End: 04-30-2024 ambulatory 04/30/2024 9:45 AM EDT OT/PT/Speech Visit [facility] [address] [place], [place] [address] Rosa Orta, PT Venous incompetence [I87.2] [facility] Comment on above: Venous incompetence [I87.2] Start: 04-14-2024 End: 04-14-2024 Patient encounter procedure 04/14/2024 1:40 PM EDT Office Visit Family [facility] [place] [address] [place], [place] [phone] Julianna Hood APRN.JIG GRINDER [address] [place], [place] [phone] Blood in Urine Family [facility] Comment on above: Blood in Urine Start: 04-10-2024 End: 04-10-2024 Patient encounter procedure 04/10/2024 11:40 AM EDT Office Visit Family [facility] [place] [address] [place] [address] Osvaldo rTavis PA-C [address] [facility] [place] [address] 6 week f/u [facility] [place] Comment on above: 6 week f/u Start: 03-19-2024 End: 03-19-2024 Patient encounter procedure 03/19/2024 12:30 PM EDT Office Visit Vasculary Surgery [address] [place] [address] 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, 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]; Venous incompetence [I87.2] Vasculary Surgery Comment on above: Varicose veins of twila th lower extremities with inflammation [I83.11, I83.12]; Venous incompetence [I87.2] Start: 03-17-2024 End: 03-17-2024 Patient encounter procedure 03/17/2024 2:40 PM EDT Office Visit Cardiology [address] [place] [address] Bilateral leg edema [R60.0]; SOB (shortness of breath) [R06.02]; Weight gain [R63.5] Cardiology Comment on above: Bilateral leg edema [R60.0]; SOB (shortness of breath) [R06.02]; Weight gain [R63.5] Start: 03-05-2024 BP CONTROLLED (<130/80) BP CONTROLLE D (<130/80) [facility] Start: 03-02-2024 ANNUAL PCP TEAM SAP TECHNICAL DEVELOPER MYRIAM DISEASE VISIT ANNUAL PCP TEAM CHRONIC DISEASE VISIT [facility] Start: 03-02-2024 BP CONTROLLED (<130/80) BP CONTROLLE D (<130/80) [facility] Start: 02-28-2024 End: 05-29-2024 Basic metabolic 2000 panel - Serum or Plasma [facility] Work Phone: Comment on above: Expected: 02/28/2024 , Expires: 05/29/2024 Start: 02-28-2024 End: 05-29-2024 Cortisol [Mass/volume] in Serum or Plasma CORTISOL, SERUM Lab Routine Weight gain Hypersomnolence Cushingoid facies Expected: 02/28/2024, Expires: 05/29/2024 [facility] Comment on above: Expected: 02/28/2024 , Expires: 05/29/2024 Start: 02-28-2024 Hemoglobin A1c measurement HbA1C [facility] Start: 02-28-2024 End: 05-29-2024 Natriuretic peptide.B prohormone N-Terminal [Mass/volume] in Serum or Plasma [facility] Comment on above: Expected: 02/28/2024 , Expires: 05/29/2024 Start: 02-28-2024 End: 02-28-2024 Patient encounter procedure 02/28/2024 11:00 AM EDT Office Visit [facility] [place] [address] [place], [place] [address] Osvaldo Travis PA-C [address] [place], [place] [phone] 4 week follow up [facility] [place] Comment on above: 4 week follow up Start: 02-17-2024 ANNUAL PCP TEAM SAP TECHNICAL DEVELOPER MYRIAM DISEASE VISIT ANNUAL PCP TEAM CHRONIC DISEASE VISIT [facility] Start: 02-04-2024 End: 05-05-2024 Comprehensive metabolic 2000 panel - Serum or Plasma [facility] Work Phone: Comment on above: Expected: 02/04/2024 , Expires: 05/05/2024 Start: 02-04-2024 End: 05-05-2024 Natriuretic peptide.B prohormone N-Terminal [Mass/volume] in Serum or Plasma [facility] Comment on above: Expected: 02/04/2024 , Expires: 05/05/2024 Start: 02-04-2024 End: 05-05-2024 Thyrotropin [Units/volume] in Serum or Plasma [facility] Comment on above: Expected: 02/04/2024 , Expires: 05/05/2024 Start: 01-20-2024 ANNUAL PCP TEAM SAP TECHNICAL DEVELOPER MYRIAM DISEASE VISIT ANNUAL PCP TEAM CHRONIC DISEASE VISIT [facility] Start: 12-05-2023 End: 02-04-2024 Basic metabolic 2000 panel - Serum or Plasma BASIC METABOLIC PNL Lab Routine Type 2 diabetes mellitus with microalbuminuria, with long-term current use of insulin (HCC) Expected: 12/05/2023, Expires: 02/04/2024 [facility] Work Phone: Comment on above: Expected: 12/05/2023 , Expires: 02/04/2024 Start: 12-05-2023 End: 02-04-2024 CBC W Auto Differential panel - Blood CBC + DIFF Lab Routine Type 2 diabetes mellitus with microalbuminuria, with long-term current use of insulin (HCC) Expected: 12/05/2023, Expires: 02/04/2024 [facility] Work Phone: Comment on above: Expected: 12/05/2023 , Expires: 02/04/2024 Start: 12-05-2023 End: 02-04-2024 Hemoglobin A1c in Blood HGB A1C Lab Routine Type 2 diabetes mellitus with microalbuminuria, with long-term current use of insulin (HCC) Expected: 12/05/2023, Expires: 02/04/2024 [facility] Work Phone: Comment on above: Expected: 12/05/2023 , Expires: 02/04/2024 Start: 12-05-2023 End: 02-04-2024 Lipid 1996 panel - Serum or Plasma LIPID PANEL BASIC Lab Routine Mixed hyperlipidemia Expected: 12/05/2023, Expires: 02/04/2024 [facility] Work Phone: Comment on above: Expected: 12/05/2023 , Expires: 02/04/2024 Start: 11-30-2023 ANNUAL PCP TEAM SAP TECHNICAL DEVELOPER MYRIAM DISEASE VISIT ANNUAL PCP TEAM CHRONIC DISEASE VISIT [facility] Start: 11-28-2023 End: 02-27-2024 ALBUMIN/CREAT RATIO RND UR ALBUMIN/CREAT RATIO RND UR Lab Routine Type 2 diabetes mellitus without complication, with long-term current use of insulin (HCC) Expected: 11/28/2023, Expires: 02/27/2024 [facility] Work Phone: Comment on above: Expected: 11/28/2023 , Expires: 02/27/2024 Start: 11-28-2023 Hepatitis B screening URINE AL BUMIN:CREATININE RATIO [facility] Start: 11-28-2023 Hepatitis B surface antibody level LDL CHOLESTEROL [facility] Start: 11-16-2023 Hemoglobin A1c measurement HbA1C [facility] Start: 11-16-2023 Hemoglobin A1c/Hemoglobin.total in Blood HbA1C [facility] Start: 09-17-2023 Advance Directive Discussion Advance Directive Discussion [facility] Start: 09-17-2023 Depression Assessment Depression Ass essment [facility] Start: 06-01-2023 End: 08-01-2023 Hemoglobin A1c in Blood HGB A1C Lab Routine Type 2 diabetes mellitus with microalbuminuria, with long-term current use of insulin (HCC) Expected: 06/01/2023, Expires: 08/01/2023 [facility] Work Phone: Comment on above: Expected: 06/01/2023 , Expires: 08/01/2023 Start: 05-31-2023 3 comp foot exam completed DIABETIC FOOT EXAM [facility] Start: 05-31-2023 ANNUAL PCP TEAM SAP TECHNICAL DEVELOPER MYRIAM DISEASE VISIT ANNUAL PCP TEAM CHRONIC DISEASE VISIT [facility] Start: 05-30-2023 Hemoglobin A1c/Hemoglobin.total in Blood HBA1C [facility] Start: 05-30-2023 End: 07-30-2023 Lipid 1996 panel - Serum or Plasma LIPID PANEL BASIC Lab Routine Type 2 diabetes mellitus with microalbuminuria, with long-term current use of insulin (HCC) Expected: 05/30/2023, Expires: 07/30/2023 [facility] Work Phone: Comment on above: Expected: 05/30/2023 , Expires: 07/30/2023 Start: 05-18-2023 End: 07-18-2023 Comprehensive metabolic 2000 panel - Serum or Plasma [facility] Work Phone: Comment on above: Expected: 05/18/2023 , Expires: 07/18/2023 Start: 05-18-2023 End: 07-18-2023 Creatine kinase [Enzymatic activity/volume] in Serum or Plasma [facility] Work Phone: Comment on above: Expected: 05/18/2023 , Expires: 07/18/2023 Start: 05-18-2023 Influenza vaccination [facility] Start: 05-18-2023 End: 07-18-2023 Urinalysis complete panel - Urine [facility] Work Phone: Comment on above: Expected: 05/18/2023 , Expires: 07/18/2023 Start: 05-18-2023 End: 07-18-2023 URINALYSIS, DIPSTICK ONLY [facility] Work Phone: Comment on above: Expected: 05/18/2023 , Expires: 07/18/2023 Start: 03-03-2023 Adult depression screening assessment DEPRESSION SCREENING [facility] Start: 03-03-2023 ANNUAL PCP TEAM SAP TECHNICAL DEVELOPER MYRIAM DISEASE VISIT ANNUAL PCP TEAM CHRONIC DISEASE VISIT [facility] Start: 03-03-2023 BP CONTROLLED (<130/80) BP CONTROLLE D (<130/80) [facility] Start: 03-02-2023 End: 05-02-2023 Comprehensive metabolic 2000 panel - Serum or Plasma [facility] Work Phone: Comment on above: Expected: 03/02/2023 , Expires: 05/02/2023 Start: 03-02-2023 End: 05-02-2023 Lipase [Enzymatic activity/volume] in Serum or Plasma [facility] Work Phone: Comment on above: Expected: 03/02/2023 , Expires: 05/02/2023 Start: 01-27-2023 BP CONTROLLED (<130/80) BP CONTROLLE D (<130/80) [facility] Start: 11-29-2022 End: 01-29-2023 CBC W Ordered Manual Differential panel - Blood PATHOLOGIST INTERPRETATION WITH CBC AND DIFF Lab Routine Leukocytosis, unspecified type Expected: 11/29/2022, Expires: 01/29/2023 [facility] Work Phone: Comment on above: Expected: 11/29/2022 , Expires: 01/29/2023 Start: 11-27-2022 End: 01-27-2023 ALBUMIN/CREAT RATIO RND UR [facility] Work Phone: Comment on above: Expected: 11/27/2022 , Expires: 01/27/2023 Start: 11-27-2022 End: 01-27-2023 CBC W Auto Differential panel - Blood [facility] Work Phone: Comment on above: Expected: 11/27/2022 , Expires: 01/27/2023 Start: 11-27-2022 End: 01-27-2023 Comprehensive metabolic 2000 panel - Serum or Plasma [facility] Work Phone: Comment on above: Expected: 11/27/2022 , Expires: 01/27/2023 Start: 11-27-2022 End: 01-27-2023 Hemoglobin A1c in Blood [facility] Work Phone: Comment on above: Expected: 11/27/2022 , Expires: 01/27/2023 Start: 11-21-2022 ANNUAL PCP TEAM SAP TECHNICAL DEVELOPER MYRIAM DISEASE VISIT ANNUAL PCP TEAM CHRONIC DISEASE VISIT [facility] Start: 11-21-2022 BP CONTROLLED (<130/80) BP CONTROLLE D (<130/80) [facility] Start: 10-18-2022 Glaucoma screening Dilated Retinal E xam [facility] Start: 10-18-2022 Hepatitis C antibody , confirmatory test DILATED RETINAL EXAM [facility] Start: 09-17-2022 ADVANCE DIRECTIVE DISCUSSION ADVANCE DIRECTIVE DISCUSSION [facility] Start: 09-17-2022 DEPRESSION ASSESSMENT DEPRESSION ASS ESSMENT [facility] Start: 08-30-2022 End: 10-30-2022 Basic metabolic 2000 panel - Serum or Plasma BASIC METABOLIC PNL Lab Routine Type 2 diabetes mellitus without complication, with long-term current use of insulin (HCC) Expected: 08/30/2022, Expires: 10/30/2022 [facility] Work Phone: Comment on above: Expected: 08/30/2022 , Expires: 10/30/2022 Start: 08-30-2022 End: 10-30-2022 CBC W Ordered Manual Differential panel - Blood PATHOLOGIST INTERPRETATION WITH CBC AND DIFF Lab Routine Monocytosis Expected: 08/30/2022, Expires: 10/30/2022 [facility] Work Phone: Comment on above: Expected: 08/30/2022 , Expires: 10/30/2022 Start: 08-30-2022 End: 10-30-2022 Hemoglobin A1c in Blood HGB A1C Lab Routine Type 2 diabetes mellitus with microalbuminuria, with long-term current use of insulin (HCC) Expected: 08/30/2022, Expires: 10/30/2022 [facility] Work Phone: Comment on above: Expected: 08/30/2022 , Expires: 10/30/2022 Start: 08-29-2022 Hemoglobin A1c/Hemoglobin.total in Blood HBA1C [facility] Start: 08-25-2022 Hemoglobin A1c/Hemoglobin.total in Blood HBA1C [facility] Start: 08-16-2022 Hepatitis B screening URINE AL BUMIN:CREATININE RATIO [facility] Start: 08-16-2022 Hepatitis B surface antibody level LDL CHOLESTEROL [facility] Start: 06-03-2022 End: 08-03-2022 Basic metabolic 2000 panel - Serum or Plasma BASIC METABOLIC PNL Lab Routine Type 2 diabetes mellitus with microalbuminuria, with long-term current use of insulin (HCC) Expected: 06/03/2022, Expires: 08/03/2022 [facility] Work Phone: Comment on above: Expected: 06/03/2022 , Expires: 08/03/2022 Start: 06-03-2022 End: 08-03-2022 CBC W Auto Differential panel - Blood CBC + DIFF Lab Routine Type 2 diabetes mellitus with microalbuminuria, with long-term current use of insulin (HCC) Expected: 06/03/2022, Expires: 08/03/2022 [facility] Work Phone: Comment on above: Expected: 06/03/2022 , Expires: 08/03/2022 Start: 06-03-2022 End: 08-03-2022 Hemoglobin A1c in Blood HGB A1C Lab Routine Type 2 diabetes mellitus with microalbuminuria, with long-term current use of insulin (HCC) Expected: 06/03/2022, Expires: 08/03/2022 [facility] Work Phone: Comment on above: Expected: 06/03/2022 , Expires: 08/03/2022 Start: 06-03-2022 End: 08-03-2022 Hepatitis C virus Ab [Presence] in Serum HEP C AB IA W/CONF SCRN Lab Routine Need for hepatitis C screening test Expected: 06/03/2022, Expires: 08/03/2022 [facility] Work Phone: Comment on above: Expected: 06/03/2022 , Expires: 08/03/2022 Start: 05-18-2022 Influenza vaccination INFLUENZA (#1) [facility] Start: 05-06-2022 3 comp foot exam completed DIABETIC FOOT EXAM [facility] Start: 02-11-2022 End: 04-13-2022 Hemoglobin A1c/Hemoglobin.total in Blood [facility] Comment on above: Expected: 02/11/2022 , Expires: 04/13/2022 Start: 01-12-2022 End: 03-14-2022 Basic metabolic 2000 panel - Serum or Plasma BASIC METABOLIC PNL Lab Routine Type 2 diabetes mellitus without complication, with long-term current use of insulin (HCC) Expected: 01/12/2022, Expires: 03/14/2022 [facility] Work Phone: Comment on above: Expected: 01/12/2022 , Expires: 03/14/2022 Start: 09-17-2021 ADVANCE DIRECTIVE DISCUSSION ADVANCE DIRECTIVE DISCUSSION [facility] Start: 09-17-2021 DEPRESSION ASSESSMENT DEPRESSION ASS ESSMENT [facility] Start: 07-16-2019 Adult depression screening assessment DEPRESSION SCREENING [facility] Start: 2004 Hepatitis B Vaccine (1 of 3 - Risk 3-dose series) Hepatitis B Vaccine (1 of 3 - Risk 3-dose series) [facility] Start: 2004 RSV Vaccine (1 - 1-d ose 60+ series) RSV Vaccine (1 - 1-dose 60+ series) [facility] Start: 1994 SHINGRIX VACCINE (1 of 2) SO GRIX VACCINE (1 of 2) [facility] Start: 1963 Urine microalbumin profile [facility] Start: 1962 BP CONTROLLED (<130/80) BP CONTROLLE D (<130/80) [facility] Start: 1962 HEPATITIS C SCREENING HEPATITIS C SC REENING [facility] Start: 1950 PNEUMOCOCCAL: 65+ (1 - PCV) PNEUMOCOCCAL: 65+ (1 - PCV) [facility] Start: 1949 COVID-19 VACCINE (#1) COVID-19 VACCI NE (#1) [facility] Start: 1949 COVID-19 VACCINE (1) COVID-19 VACCIN E (1) [facility] Start: 1944 COVID-19 VACCINE (#1) COVID-19 VACCI NE (#1) [facility] CBC W Auto Different ial panel - Blood CBC + DIFF Lab Routine Near syncope 05/18/2023 4:29 PM EDT [facility] Work Phone: COVID & INFLUENZA A/ B & RSV NAAT, ROUTINE COVID & INFLUENZA A/B & RSV NAAT, ROUTINE Microbiology Routine Suspected COVID-19 virus infection 06/09/2023 11:25 AM EDT [facility] Work Phone: End: 05-18-2024 ECG COMPLETE ECG COMPLETE ECG Routine Near syncope Fall, initial encounter 1 Occurrences starting 05/18/2023 until 05/18/2024 [facility] Work Phone: Comment on above: 1 Occurrences starti ng 05/18/2023 until 05/18/2024 ECG COMPLETE ECG COMPLETE ECG Routine SOB (shortness of breath) Bilateral leg edema Weight increase 02/04/2024 11:01 AM EDT [facility] End: 02-27-2025 Echocardiography ECHO Cardiology Routine Bilateral leg edema SOB (shortness of breath) Weight gain 1 Occurrences starting 02/28/2024 until 02/27/2025 [facility] Comment on above: 1 Occurrences starti ng 02/28/2024 until 02/27/2025 Lipid 1996 panel - S leatha or Plasma LIPID PANEL BASIC Lab Routine Type 2 diabetes mellitus with microalbuminuria, with long-term current use of insulin ([facility]) 11/27/2022 9:20 AM EDT [facility] Work Phone: ROUTINE FLU A/B + RSV ROUTINE FL U A/B + RSV Lab Routine Suspected COVID-19 virus infection 06/09/2023 11:25 AM EDT [facility] Work Phone: SARS-CoV-2 (COVID-19 ) RNA [Presence] in Respiratory specimen by DARRIAN with probe detection COVID NAAT, ROUTINE Microbiology Routine Acute upper respiratory infection 05/18/2023 4:19 PM EDT [facility] Work Phone: SARS-CoV-2 (COVID-19 ) RNA [Presence] in Respiratory specimen by DARRIAN with probe detection COVID NAAT, UPPER RESPIRATORY, ROUTINE Microbiology Routine Suspected COVID-19 virus infection 06/09/2023 11:25 AM EDT [facility] Work Phone: End: 02-27-2025 US Vein - bilateral US VENOUS INCOMPETENCY [facility] Vascular Lab Routine Varicose veins of both lower extremities with inflammation 1 Occurrences starting 02/28/2024 until 02/27/2025 [facility] Comment on above: 1 Occurrences starti ng 02/28/2024 until 02/27/2025 End: 03-05-2025 XR Chest PA and Lateral XR CHEST 2V FRONTAL/LAT Radiology Routine SOB (shortness of breath) Bilateral leg edema Weight increase 1 Occurrences starting 02/04/2024 until 03/05/2025 [facility] Comment on above: 1 Occurrences starti ng 02/04/2024 until 03/05/2025 XR Chest PA and Lateral XR CHEST 2V FRONTAL/LAT Radiology Routine SOB (shortness of breath) Bilateral leg edema Weight increase 02/04/2024 12:26 PM EDT [facility] End: 08-21-2024 XR HIP GENERAL 3V PELV/AP/LAT RIGHT XR HIP GENERAL 3V PELV/AP/LAT RIGHT Radiology Routine Acute hip pain, right 1 Occurrences starting 07/23/2023 until 08/21/2024 [facility] Work Phone: Comment on above: 1 Occurrences starti ng 07/23/2023 until 08/21/2024 XR HIP GENERAL 3V PELV/AP/LAT RIGHT XR HIP GENERAL 3V PELV/AP/LAT RIGHT Radiology Routine Acute hip pain, right 07/23/2023 3:10 PM EST [facility] Work Phone: [facility] Immunizations Immunization Date Immunization Notes Care Provider Rashida light 06-20-2024 influenza, high dose seasonal, preservative-free Zoila Dickerhoof BIOMEDICAL ENGINEERING PROFESSOR.JIG GRINDER Work Phone: [facility] 06-06-2023 influenza (HD-IIV4) vaccine, age 65+ yr, high dose, quadrivalent, PF (FLUZONE HIGH-DOSE) Jeff Virgen MD Work Phone: [facility] 06-06-2023 influenza virus vacc ine, unspecified formulation FERNY Travis PA-C Work Phone: [facility] 05-31-2022 influenza, high-dose , quadrivalent vaccine (FLUZONE HIGH DOSE QUADRIVALENT) Jeff Virgen MD Work Phone: [facility] 05-31-2022 influenza virus vacc ine, unspecified formulation Jeff Virgen MD Work Phone: [facility] 06-17-2021 influenza, injectabl e, quadrivalent, preservative free Zoila Dickerhoof BIOMEDICAL ENGINEERING PROFESSOR.JIG GRINDER Work Phone: [facility] 06-17-2021 influenza, seasonal, injectable Jeff Virgen MD Work Phone: [facility] 06-17-2021 influenza, seasonal, injectable, preservative free Jeff Virgen MD Work Phone: [facility] 07-26-2020 influenza, high-dose , quadrivalent vaccine (FLUZONE HIGH DOSE QUADRIVALENT) Jeff Virgen MD Work Phone: [facility] 08-21-2019 influenza, injectabl e, quadrivalent, preservative free Zoila Dickerhoof BIOMEDICAL ENGINEERING PROFESSOR.JIG GRINDER Work Phone: [facility] 08-21-2019 influenza, seasonal, injectable Jeff Virgen MD Work Phone: [facility] 08-21-2019 influenza, seasonal, injectable, preservative free Jeff Virgen MD Work Phone: [facility] Work Phone: 07-04-2019 influenza, high dose seasonal, preservative-free Jeff Virgen MD Work Phone: [facility] 07-16-2018 influenza, high dose seasonal, preservative-free Jeff Virgen MD Work Phone: [facility] 08-27-2017 influenza, high dose seasonal, preservative-free Jeff Virgen MD Work Phone: [facility] 08-17-2016 pneumococcal polysaccharide vaccine, 23 valent Jeff Virgen MD Work Phone: [facility] 06-14-2016 influenza, high dose seasonal, preservative-free Jeff Virgen MD Work Phone: [facility] Work Phone: 07-14-2015 influenza, high dose seasonal, preservative-free Jeff Virgen MD Work Phone: [facility] Work Phone: 06-16-2015 pneumococcal conjuga te vaccine, 13 valent Jeff Virgen MD Work Phone: [facility] Work Phone: 06-25-2014 influenza, seasonal, injectable Jeff Virgen MD Work Phone: [facility] 07-12-2013 influenza virus vacc ine, unspecified formulation Jeff Virgen MD Work Phone: [facility] 06-15-2012 influenza virus vacc ine, unspecified formulation Jeff Virgen MD Work Phone: [facility] Work Phone: 06-07-2011 influenza virus vacc ine, unspecified formulation Jeff Virgen MD Work Phone: [facility] Work Phone: 07-02-2010 influenza virus vacc ine, unspecified formulation Jeff Virgen MD Work Phone: [facility] Work Phone: 07-14-2009 pneumococcal polysaccharide vaccine, 23 valent Jeff Virgen MD Work Phone: [facility] 06-09-2009 influenza virus vacc ine, unspecified formulation Jeff Virgen MD Work Phone: [facility] 07-22-2008 influenza virus vacc ine, unspecified formulation Jeff Virgen MD Work Phone: [facility] 07-27-2007 influenza virus vacc ine, unspecified formulation Jeff Virgen MD Work Phone: [facility] Work Phone: 07-23-2006 influenza virus vacc ine, unspecified formulation Jeff Virgen MD Work Phone: [facility] Work Phone: 07-13-2005 influenza virus vacc ine, unspecified formulation Jeff Virgen MD Work Phone: [facility] Work Phone: Payers Date Payer Category Payer Unknown [employer]IM[employer] WES HMO POS [id number] 2014-Present [phone] [address] [place] [address] O [id number] 2014 Unknown [id number] 2014 Unknown [id number] Social History Date Type Detail Facility Start: 08-17-2016 End: 06-20-2024 Tobacco smoking status NHIS Ex-smoker [facility] Start: 09-17-1970 End: 09-17-1980 History of tobacco use Current smoker [facility] Start: 09-17-1970 End: 09-17-1980 History of tobacco use Cigarette Smoker [facility] Start: 11-21-2021 End: 06-23-2024 Alcohol intake Current non-drinker of alcohol (finding) [facility] Start: 1945 Sex Assigned At Not on file [facility] Start: 12-25-2020 End: 05-31-2022 Exposure to SARS-CoV-2 (event) Not sure [facility] Start: 03-29-2022 End: 04-08-2022 Exposure to SARS-CoV-2 (event) Unable to assess [facility] Work Phone: Start: 08-17-2016 End: 01-18-2023 Cigarettes smoked current (pack per day) - Reported 2 [facility] Start: 08-17-2016 End: 06-20-2024 Tobacco use and exposure Smokeless tobacco non-user [facility] Start: 01-19-2023 History SDOH Alcohol Frequency 1 [facility] Start: 01-19-2023 History SDOH Alcohol Std Drinks 0 [facility] Start: 01-19-2023 History SDOH Social Connections Phone 5 [facility] Start: 01-19-2023 History SDOH Social Connections Get Together 3 [facility] Start: 01-19-2023 History SDOH Social Connections Membership 2 [facility] Start: 01-19-2023 History SDOH Social Connections Living 4 [facility] Start: 1945 Sex Assigned At Male [facility] Start: 01-18-2023 End: 06-19-2024 Social connection and isolation panel [facility] Do you belong to any clubs or organizations such as adventism groups, unions, fraternal or athletic groups, or school groups? No [facility] Are you now , , , , never or living with a partner? [facility] How often to you hav e a drink containing alcohol? Never [facility] How many standard dr inks containing alcohol do you have on a typical day? Patient does not drink [facility] How hard is it for y ou to pay for the very basics like food, housing, medical care, and heating Not very hard [facility] Do you feel stress - tense, restless, nervous, or anxious, or unable to sleep at night because your mind is troubled all the time - these days [OSQ] Not at all [facility] (I/We) worried wheth er (my/our) food would run out before (I/we) got money to buy more. Never true [facility] Start: 01-18-2023 Gender identity Identifies as male gender (finding) [facility] Medical Equipment Procedure Code Equipment Code Equipment Origin al Text Equipment Identifier Dates 1 Each twice daily. Accucheck compact test strips, dx-NIDDM [id number] Start: 08-20-2013 Comment on above: 1 Each twice daily. Accucheck compact test strips, dx-NIDDM [id number], [id number], [id number] Start: 08-20-2013 End: 06-20-2024 Comment on above: [...] Henley LPN July 09, 2024 10:38 AM [facility] 07-09-2024 Miscellaneous Notes Prescription Refill Information The [...] 2024 10:38 AM documented in this encounter [facility] 06-24-2024 Telephone encounter Note Daughter returned call and given provider's message below with verbalized understanding. Daughter agreeable. Scheduled lab appt in 1 mth. [facility] 06-24-2024 Miscellaneous Notes Daughter returned call and given provider's message below with verbalized understanding. Daughter agreeable. Scheduled lab appt in 1 mth. Tried to reach pt, VM full, unable to leave message or call back number. Kumo message sent to pt, asking them to call back for results. Miley Pemberton MA Attempted to reach pt by phone without success. Mailbox is full. Try later. Kennedi Frey LPN ----- Message from Julianna Hood sent at 06/23/2024 1:51 PM EDT ----- Your vitamin D level is very low. Please consider [id number] vitamin D3-2000 units daily. Your white blood count is improving but now developing some mild anemia. Please recheck CBC in a month again. documented in this encounter [facility] 06-24-2024 Telephone encounter Note Tried to reach pt, VM full, unable to leave message or call back number. Kumo message sent to pt, asking them to call back for results. Miley Pemberton MA [facility] 06-23-2024 Instructions Sunny Duval APRN.CAESAR - 06/23/2024 3:20 PM EDT Let me know if you would like to schedule a sleep study. We can have it done at [place] or [place]. documented in this encounter [facility] 06-23-2024 History of Presen t illness Narrative Images from the original note were not included. [facility] New Patient Evaluation PATIENT NAME: Faisal Alarcon DATE OF SERVICE: June 22, 2024 CONSULTING PROVIDER: Osvaldo Travis [address] [facility] [address] REASON FOR CONSULT: Osvaldo Travis sends the [...] 05/11/2005 PARAN SCHIZO-SUBCHR/EXAC 05/11/2005 Schizophrenia, chronic condition ([facility]) 04/23/2017 Well controlled, Dr Abebe. Stable for [...] day. Blood-Glucose Meter,Continuous (FREESTYLE JAMES 3 READER) [facility] Use to check blood sugar at least [...] mouth every 12 hours. Prescribed by outside financing analyst Review of Systems Cardiovascular: Negative for palpitations. [...] untreated CJ including but not limited to NV/HF/CVA, testing for CJ, treatment with PAP therapy. Not a candidate for OAT since he is edentulous. Briefly discussed hypoglossal nerve stimulation ([employer]). We discussed different mask options for PAP. He will consider a PSG, could schedule at [place] or [place], daughter Loan uses [employer] for him, she will let me know. Sunny Duval APRN.JIG GRINDER documented in this encounter [facility] 06-23-2024 Note HNO ID: [id number] Author: SUNNY DUVAL APRN.CAESAR Service: ? Author Type: Nurse Practitioner Type: Progress Notes Filed: 06/23/2024 16:46 Note Text: [facility] New Patient Evaluation PATIENT NAME: Faisal Alarcon DATE OF SERVICE: June 22, 2024 CONSULTING PROVIDER: Osvaldo Travis [address] [facility] [id number] REASON FOR CONSULT: Osvaldo Travis sends the [...] 05/11/2005 PARAN SCHIZO-SUBCHR/EXAC 05/11/2005 Schizophrenia, chronic condition ([facility]) 04/23/2017 Well controlled, Dr Abebe. Stable for [...] day. Blood-Glucose Meter,Continuous (FREESTYLE JAMES 3 READER) [facility] Use to check blood sugar at least [...] Inhale 2 Puf (more content not included)... [facility] 06-23-2024 Telephone encounter Note Attempted to reach pt by phone without success. Mailbox is full. Try later. Kennedi Frey LPN [facility] 06-23-2024 Telephone encounter Note ----- Message from Julianna Hood sent at 06/23/2024 1:51 PM EDT ----- Your vitamin D level is very low. Please consider ztrd-tnz-[id number] vitamin D3-2000 units daily. Your white blood count is improving but now developing some mild anemia. Please recheck CBC in a month again. [facility] 06-20-2024 Note HNO ID: [id number] Author: JEFF VIRGEN MD Service: ? Author [...] Free style james script needs sent through [employer] He is wanting us to send his scooter request to [employer]. They had requested a letter in the [...] mouth every 12 hours. Prescribed by outside financing analyst No current facility-administered medications for this visit. [...] REDUCIBLE Hernia r (more content not included)... [facility] 06-20-2024 History of Presen t [...] mouth every 12 hours. Prescribed by outside financing analyst No current facility-administered medications for this visit. [...] Jeff Virgen MD documented in this encounter [facility] 06-20-2024 Telephone encounter Note Patient phones requesting refills as follows: Requested Prescriptions Pending Prescriptions Disp Refills ELIQUIS 5 mg tab(s) 60 tablet 1 Sig: Take 1 tablet by mouth two times a day. Please review and advise. Renetta Gant MA [facility] 06-20-2024 Miscellaneous Notes Patient phones requesting refills as follows: Requested Prescriptions Pending Prescriptions Disp Refills ELIQUIS 5 mg tab(s) 60 tablet 1 Sig: Take 1 tablet by mouth two times a day. Please review and advise. Renetta Gant MA documented in this encounter [facility] 06-20-2024 Telephone encounter Note Patient has visit today. Clinical staff can follow up with daughter at visit. [facility] 06-20-2024 Miscellaneous Notes Patient has visit today. Clinical staff can follow up with daughter at visit. Patient's daughter Loan Brooks calling and requesting to speak specifically with PCP nurse, Anthony. This is in regard to patient's scooter and pt's insurance. Loan [phone]. Thank you. documented in this encounter [facility] 06-18-2024 Telephone encounter Note Patient's daughter Loan Brooks calling and requesting to speak specifically with PCP nurse, Anthony. This is in regard to patient's scooter and pt's insurance. Loan [phone]. Thank you. [facility] 06-17-2024 Telephone encounter Note Received a call from Alison with [employer]. PH: [phone]. She reports receiving information on a scooter. Alison reports this has to go thru pt's [employer] and they will fax all information with details to [employer] for PA to be done. I called daughter Loan and she reports they are using [employer] fax:[phone] PH: [phone] Spoke with Amairani and after they received the fax they will go thru it and send forms to be filled out and once those have been returned they will send to [facility] for PA . Information fas been faxed. Kennedi Frey LPN [facility] 06-17-2024 Miscellaneous Notes Received a call from Alison with [employer]. PH: [phone]. She reports receiving information on a scooter. Alison reports this has to go thru pt's [employer] and they will fax all information with details to [employer] for PA to be done. I called caesar Cates and she reports they are using [employer] fax:[phone] PH: [phone] Spoke with [employer] and after they received the fax they will go thru it and send forms to be filled out and once those have been returned they will send to [facility] for PA . Information fas been faxed. Kennedi Frey LPN documented in this encounter [facility] 06-16-2024 Telephone encounter Note Will fax letter again as requested. [facility] 06-16-2024 Miscellaneous Notes Will fax letter again as requested. documented in this encounter [facility] 06-09-2024 Telephone encounter Note Prescription Refill Information [...] Lynn LPN June 09, 2024 8:49 AM [facility] 06-09-2024 Miscellaneous Notes Prescription Refill Information The [...] 2024 8:49 AM documented in this encounter [facility] 05-31-2024 Note HNO ID: [id number] Author: AMAIRANI MCCLENDON APRN.JIG GRINDER Service: ? Author Type: Nurse Practitioner Type: [...] plan. Patient's caregiver will take him now. [facility] 05-31-2024 History of Presen t [...] take him now. documented in this encounter [facility] 05-31-2024 Telephone encounter Note Reason for Call: [...] BP, rapid pulse) Protocols used: Dizziness - [id number] [facility] 05-31-2024 Miscellaneous Notes Reason for Call: Family [...] BP, rapid pulse) Protocols used: Dizziness - [id number] documented in this encounter [facility] 05-05-2024 Telephone encounter Note Prescription Refill Information [...] Bob LPN May 05, 2024 5:34 PM [facility] 05-05-2024 Miscellaneous Notes Prescription Refill Information The [...] 2024 5:34 PM documented in this encounter [facility] 04-14-2024 Telephone encounter Note Prescription Refill Information [...] Bob LPN April 14, 2024 11:53 AM [facility] 04-14-2024 Miscellaneous Notes Prescription Refill Information The [...] 2024 11:53 AM documented in this encounter [facility] 04-11-2024 Note HNO ID: [id number] Author: MAGALIE BARDALES, DO Service: ? Author Type: Physician Type: Progress Notes Filed: 04/11/2024 17:32 Note Text: Virtualist Progress Note Triage Call I have communicated my name and active licensure. The patient's identity and physical location were verified at the time of this visit. Either the patient or their legal sales training representative has been informed of the risks and benefits of -- and alternatives to -- treatment through a remote evaluation and consents to proceed with the evaluation remotely. Triage source: Triage Call (Nurse Principal Automation Engineer, [facility] - NOC Triage, [facility] Triage, [facility] Phone Triage) Was patient downgraded (i.e. disposition other than go to the ED was advised)? Yes Mode of contact: Audio Only Visit History/Physical Exam: 79 y/o male presents with hematuria. Went to ER in [place] yesterday. No records on care everywhere. Daughter [...] his daughter is considering taking him to [facility] ER to see if he can have cystoscopy. I stated that if he does not feel well that is a good option. Also rec scheduling an appt for next week and she can always cancel if not needed Nurse Triage Disposition (If call is from [facility], [facility] nurse triage, or an [facility] Care, the disposition is Go to ED Now ): Go to ED Now (or PCP Triage) Virtualist Recommended Disposition: See Provider > 2 days Signed in as Primary Virtualist, Secondary Virtualist, or [facility] Telehealth provider: [facility] 04-11-2024 History of Presen t illness Narrative Virtualist Progress Note Triage Call I have communicated my name and active licensure. The patient's identity and physical location were verified at the time of this visit. Either the patient or their legal sales training representative has been informed of the risks and benefits of -- and alternatives to -- treatment through a remote evaluation and consents to proceed with the evaluation remotely. Triage source: Triage Call (Nurse Principal Automation Engineer, [facility] - NOC Triage, [facility] Triage, [facility] Phone Triage) Was patient downgraded (i.e. disposition other than go to the ED was advised)? Yes Mode of contact: Audio Only Visit History/Physical Exam: 79 y/o male presents with hematuria. Went to ER in [place] yesterday. No records on care everywhere. Daughter [...] his daughter is considering taking him to [facility] ER to see if he can have cystoscopy. I stated that if he does not feel well that is a good option. Also rec scheduling an appt for next week and she can always cancel if not needed Nurse Triage Disposition (If call is from [facility], [facility] nurse triage, or an [facility] Care, the disposition is Go to ED Now ): Go to ED Now (or PCP Triage) Virtualist Recommended Disposition: See Provider > 2 days Signed in as Primary Virtualist, Secondary Virtualist, or [facility] Telehealth provider: Secondary documented in this encounter [facility] 04-11-2024 Telephone encounter Note Reason for Call: Patient and daughter calling with concerns of blood in urine Outcome: Recommendation to see HCP or PCP Triage within 4 hours Daughter refused ED. Stated they went to [place] ED yesterday and they could not do a Cystoscopy. Has appointment with Urology 04/29. Recommended [facility] ED, daughter wanted to speak to provider Name of Provider contacted for further advice: Dr. Magalie Bardales Provider's recommendation: PCP office visit Sunday or Sunday, go to ED if worsening symptoms Patient was conferenced to [facility] in Appointment Center for Sunday appointment scheduling. [...] today Protocols used: Urine - Blood In-ADULT- [facility] 04-11-2024 Miscellaneous Notes Reason for Call: Patient and daughter calling with concerns of blood in urine Outcome: Recommendation to see HCP or PCP Triage within 4 hours Daughter refused ED. Stated they went to [place] ED yesterday and they could not do a Cystoscopy. Has appointment with Urology 04/29. Recommended [facility] ED, daughter wanted to speak to provider Name of Provider contacted for further advice: Dr. Magalie Bardales Provider's recommendation: PCP office visit Sunday or Sunday, go to ED if worsening symptoms Patient was conferenced to [facility] App[facility]ment Center for Sunday appointment scheduling. Reason [...] - Blood In-ADULT- documented in this encounter [facility] 04-11-2024 Telephone encounter Note Prescription Refill Information [...] Mcclendon MA April 11, 2024 8:02 AM [facility] 04-11-2024 Miscellaneous Notes Prescription Refill Information The [...] 2024 8:02 AM documented in this encounter [facility] 04-09-2024 Note HNO ID: [id number] Author: ANDREW GUALLPA APRN.JIG GRINDER Service: ? Author Type: Nurse Practitioner Type: [...] a day before meals. Getting through [facility] dilTIAZem CD (CARDIZEM CD, CARTIA XT) 120 [...] mouth every 12 hours. Prescribed by outside financing analyst colestipol (COLESTID) 1 gram tablet Take 1 [...] vision, pain, dis (more content not included)... [facility] 04-09-2024 History of Presen t [...] times a day before meals. Getting through [facility] dilTIAZem CD (CARDIZEM CD, CARTIA [...] mouth every 12 hours. Prescribed by outside financing analyst colestipol (COLESTID) 1 gram tablet Take 1 [...] of care. This note was generated using [employer] software. It may contain errors in wording, punctuation, or spelling. Andrew Guallpa APRN.JIG GRINDER documented in this encounter [facility] 03-24-2024 Telephone encounter Note Reviewed venous insuffiencey and labs. His diltiazem may be contributing. Offered to see him if need be. Discussed compression hose. Keep cool and elevated. Offered vascular eval as well. Daughter's questions answered. [facility] 03-24-2024 Miscellaneous Notes Reviewed venous insuffiencey and labs. His diltiazem may be contributing. Offered to see him if need be. Discussed compression hose. Keep cool and elevated. Offered vascular eval as well. Daughter's questions answered. This is her response to the message that Prosper sent from his lab results on 02/28/24. Please review message regarding pt. Marilin Stein MA documented in this encounter [facility] 03-24-2024 Telephone encounter Note This is her response to the message that Prosper sent from his lab results on 02/28/24. [facility] 03-22-2024 Telephone encounter Note Please review message regarding pt. Marilin Stein MA [facility] 03-21-2024 Telephone encounter Note Patient's daughter notified of results and provider's instructions. Patient daughter verbalizes understanding. Reanna Greenberg RN [facility] 03-21-2024 Miscellaneous Notes Patient's daughter notified of [...] pumps to reduce swelling. Telephone on 03/21/24 [facility] KNEE HI 30-40WT CONSULT TO LYMPHEDEMA THERAPY Venous incompetence (primary encounter diagnosis) Lymphedema of left leg Varicose veins of both legs with edema Prosper Patel PA-C documented in this encounter [facility] 03-21-2024 Telephone encounter Note Left vm on daughters vm to return call to nurse for provider's message, regarding patient's US results. [facility] 03-21-2024 Telephone encounter Note Please advise: Ultrasound [...] pumps to reduce swelling. Telephone on 03/21/24 [place] KNEE HI 30-40WT CONSULT TO LYMPHEDEMA THERAPY Venous incompetence (primary encounter diagnosis) Lymphedema of left leg Varicose veins of both legs with edema Prosper Patel PA-C [facility] 03-19-2024 Telephone encounter Note Daughter notified with results below and report faxed to [facility]. Kennedi Frey LPN [facility] 03-19-2024 Miscellaneous Notes Daughter notified with results below and report faxed to [facility]. Kennedi Frey LPN Phoned patient and given provider's message below. Patient [place] and asked this nurse to call his [...] up from 13 mmHg. He follows with [facility]: please have him follow up with them in next few months and please have the echo sent there for them to review. Thanks, Prosper Travis PA-C documented in this encounter [facility] 03-19-2024 Telephone encounter Note Phoned patient and given provider's message below. Patient reports he [place] and asked this nurse to call his daughter, Loan, to give her the message. Left vm on Loan's vm asking her to return call to triage nurse for provider's message. [facility] 03-19-2024 Telephone encounter Note Please advise Faisal [...] up from 13 mmHg. He follows with [facility]: please have him follow up with them in next few months and please have the echo sent there for them to review. Thanks, Prosper Travis PA-C [facility] 03-06-2024 Telephone encounter Note Patient contacted pharmacy [...] date of : No Nasra Muñiz LPN [facility] 03-06-2024 Miscellaneous Notes Patient contacted pharmacy and [...] Nasra Muñiz LPN documented in this encounter [facility] 02-28-2024 History of Presen t illness Narrative [...] feet walking with dyspnea- not new. Sees [facility], last visit 10/24/2023: Notes identified paroxysmal [...] Lymph 1.00 - 4.00 k/uL 2.31 1.59 [place]% % 11.1 11.1 Abs [place] <0.87 k/uL 1.14 (H) 1.24 (H) Eosin% [...] times a day before meals. Getting through [facility] 5 Each 1 dilTIAZem CD (CARDIZEM CD, [...] mouth every 12 hours. Prescribed by outside financing analyst 60 tablet 0 colestipol (COLESTID) 1 gram [...] Osvaldo Travis PA-C documented in this encounter [facility] 02-28-2024 Note HNO ID: [id number] Author: Osvaldo TRAVIS PA-C Service: ? Author Type: Physician Director Design Type: Progress Notes Filed: 02/28/2024 14:02 Note [...] feet walking with dyspnea- not new. Sees [facility], last visit 10/24/2023: Notes identified paroxysmal [...] Lymph 1.00 - 4.00 k/uL 2.31 1.59 [place]% % 11.1 11.1 Abs [place] <0.87 k/uL 1.14 (H) 1.24 (H) Eosin% [...] Microalbuminuria (Hcc) Int (more content not included)... [facility] 02-12-2024 Telephone encounter Note Patient's daughter was made aware of the results and verbalizes understanding. Janet King Ma [facility] 02-12-2024 Miscellaneous Notes Patient's daughter was made [...] days as ordered Protocols used: No Guideline Lnybnwtcq-VIHUJ-VX Message left for pt's daughter Loan Brooks, [...] Angelina Bliss RN documented in this encounter [facility] 02-12-2024 Telephone encounter Note Check weight daily and call if weight goes up over three lbs in 24 hours. Call if worsening swelling or shortness of breath. His EKG is unchanged. It was read the day he was here when Prosper saw him. [facility] 02-12-2024 Telephone encounter Note Triage protocol Recommended: [...] days as ordered Protocols used: No Guideline Fcfkuotje-SQNHT-GX [facility] 02-12-2024 Telephone encounter Note Message left for pt's daughter Loan Brooks, to call provider's office and ask for a nurse to discuss MC message received on 01/11/24, regarding patient, as copied: Faisal Alarcon to [facility] My Chart Rx Pool (supporting Osvaldo Travis PA-C) 02/10/24 2:56 PM Hi Mr. Travis, After the five days of being on lasiks, dad has only lost three pounds. His ankles and feet are still swollen. So still have concern regarding this. Also, his EKG Rhythm Strip is quite concerning to me. Please advise! Angelina Bliss RN [facility] 02-04-2024 Instructions Osvaldo Travis PA-C - 02/04/2024 12:49 PM EDT Trial lasix 40mg daily x 5 days Check weight at home prior to starting Recheck weight in 5 days and report to me documented in this encounter [facility] 02-04-2024 History of Presen t illness Narrative [...] PATIENT PRESENTS WITH AN IMPLANTABLE OR ATTACHED OPERATIONS LIAISON: No RADIOLOGY DEPARTMENT: General X-ray: Exam(s) Completed: Chest X-Ray PERIPHERAL IV DATA: Not applicable SIGNED BY: RT Griselda(Leslee) February 04, 2024 12:16 PM documented in this encounter [facility] 02-04-2024 Note HNO ID: [id number] Author: KAMERON ARRINGTON RT(R) Service: Radiology Author [...] PATIENT PRESENTS WITH AN IMPLANTABLE OR ATTACHED OPERATIONS LIAISON: No RADIOLOGY DEPARTMENT: General X-ray: Exam(s) Completed: Chest X-Ray PERIPHERAL IV DATA: Not applicable SIGNED BY: RT Griselda(Leslee) February 04, 2024 12:16 PM [facility] 02-04-2024 Note HNO ID: [id number] Author: Osvaldo TRAVIS PA-C Service: ? Author Type: Physician Director Design Type: Progress Notes Filed: 02/04/2024 13:25 Note [...] feet walking with dyspnea- not new. Sees [facility], last visit 10/24/2023: Notes identified paroxysmal [...] times a day before meals. Getting through [employer] 5 Each 1 dilTIAZem CD (CARDIZEM CD, [...] daily. insulin needles, (more content not included)... [facility] 02-04-2024 History of Presen t [...] feet walking with dyspnea- not new. Sees [facility], last visit 10/24/2023: Notes identified paroxysmal [...] mouth every 12 hours. Prescribed by outside financing analyst 60 tablet 0 No current facility-administered medications [...] 05/18/2023, NSR 1 degree AVB, LAFB pending financing analyst review. ASSESSMENT/PLAN: 1. SOB (shortness of breath) - ICD9: 786.05, ICD10: R06.02 (primary diagnosis) Suspect r/t body habitus and deconditioning, chronic lung disease In no acute distress. No chest pain or evidence of DVT. EKG stable Due to sudden weight gain will trial lasix 40mg daily x 5 days with weight onb 5th day to be reported through [employer]- daughter will see this gets completed If chest pain, worsening SOB, feeling worse:go to ER Will send note to [facility] for continuity of care. - COMPLETE [...] Osvaldo Travis PA-C documented in this encounter [facility] 02-04-2024 Telephone encounter Note Daughter reports patient [...] disease. 7. : N/A Protocols used: Ankle Mmvrqmff-HHJTA-WF, Leg Swelling and Xuluu-MGCHQ-ZM [facility] 02-04-2024 Miscellaneous Notes Daughter reports patient has [...] disease. 7. : N/A Protocols used: Ankle Ykzstgfg-MBPIB-EE, Leg Swelling and Uhtxx-YTKWD-TV documented in this encounter [facility] 01-18-2024 Telephone encounter Note Patient has been [...] Please advise. Thank you. Christian Bob LPN. [facility] 01-18-2024 Miscellaneous Notes Patient has been identified [...] Christian Bob LPN. documented in this encounter [facility] 01-09-2024 Miscellaneous Notes Patient phones requesting refills as follows: Requested Prescriptions Pending Prescriptions Disp Refills ELIQUIS 5 mg tab(s) 60 tablet 1 Sig: Take 1 tablet by mouth two times a day. Please review and advise. Renetta Gant MA documented in this encounter [facility] 01-09-2024 Telephone encounter Note Patient phones requesting refills as follows: Requested Prescriptions Pending Prescriptions Disp Refills ELIQUIS 5 mg tab(s) 60 tablet 1 Sig: Take 1 tablet by mouth two times a day. Please review and advise. Renetta Gant MA [facility] 01-01-2024 Miscellaneous Notes See letter. documented in this encounter [facility] 01-01-2024 Miscellaneous Notes See other note Daughter, Loan, reports she spoke with [employer], who informed her pcp would need to write a Prior Auth letter stating condition and diagnoses, and specify patient needs a lite weight, and [facility] at fax # [phone]. [employer] would then decide if they will cover it. Please phone Loan with any questions. documented in this encounter [facility] 12-31-2023 Miscellaneous Notes Printed. See MyChart message needs it to be for this scooter please. documented in this encounter [facility] 12-25-2023 Miscellaneous Notes Addended by: JEFF VIRGEN on: 12/25/2023 02:15 PM Modules accepted: Orders documented in this encounter [facility] 12-25-2023 Note HNO ID: [id number] Author: JEFF VIRGEN MD Service: ? Author Type: Physician Type: Progress Notes Filed: 12/25/2023 14:15 Note Text: Wants scooter. Uses a walker. Does not have a walker. Wants a scooter to use groceries. Daughter says they they will cover it for that. [facility] 12-25-2023 History of Presen t [...] chills. No cough. No dizziness. Latest Ref [facility] 11/28/2023 WBC 3.70 - 11.00 k/uL 10.24 [...] Abs Lymph 1.00 - 4.00 k/uL 2.31 Sweet Grass% % 11.1 Abs Sweet [place] <0.87 k/uL 1.14 (H) Eosin% % 3.4 [...] mouth every 12 hours. Prescribed by outside financing analyst No current facility-administered medications for this visit. [...] months or prn documented in this encounter [facility] 12-25-2023 Note HNO ID: [id number] Author: JEFF VIRGEN MD Service: ? Author [...] chills. No cough. No dizziness. Latest Ref [facility] 11/28/2023 WBC 3.70 - 11.00 k/uL 10.24 [...] Abs Lymph 1.00 - 4.00 k/uL 2.31 [place]% % 11.1 Abs [place] <0.87 k/uL 1.14 (H) Eosin% % 3.4 [...] mouth every 12 hours. Prescribed by outside financing analyst No cu (more content not included)... [facility] 11-15-2023 Miscellaneous Notes Ordered. Patient daughter Loan calling asking to have order for Albumin Creat urine put in computer for her father to complete on 11/28/2023 when he comes in to get his lab work done. Pending order to file. Please advise documented in this encounter [facility] 11-14-2023 Miscellaneous Notes Phoned patient daughter Loan [...] Please advise. Pt uses [facility] in [place]. Julia Chilel LPN documented in this encounter [facility] 11-14-2023 Miscellaneous Notes Patient daughter Loan calling [...] Tammy Davies LPN. documented in this encounter [facility] 11-02-2023 Miscellaneous Notes Patient has been identified by name and date of : Yes Requested Prescriptions Pending Prescriptions Disp Refills losartan-hydroCHLOROthiazide (HYZAAR) 100-12.5 mg per tablet 90 tablet 1 Sig: Take 1 tablet by mouth once daily. RX INSTRUCTIONS: Patient aware RX will be sent to pharmacy. No need to notify patient. [facility] 06/06/23 Scheduled 12/05/23 Anthony Henley LPN documented in this encounter [facility] 10-13-2023 Miscellaneous Notes Patient has been identified [...] Miley Pemberton Ma. documented in this encounter [facility] 09-06-2023 Note HNO ID: [id number] Author: Hellen Lynch RT(R) Service: ? Author Type: Wet Finisher Type: Progress Notes Filed: 09/06/2023 3:28 PM [...] RT Margarita(R) September 06, 2023 3:17 PM [facility] 09-06-2023 Note HNO ID: [id number] Author: Anum Cheung APRN.JIG GRINDER Service: ? Author Type: Nurse Practitioner Type: [...] mouth every 12 hours. Prescribed by outside financing analyst famotidine (PEPCID) 20 mg tablet Take 1 [...] 22 Units subcutane (more content not included)... [facility] 09-06-2023 Miscellaneous Notes Reason for [...] last month. Protocols used: Cough - Acute Xurpdulitq-DJZQU-AN documented in this encounter [facility] 08-27-2023 Miscellaneous Notes Patient phones requesting refills as follows: Requested Prescriptions Pending Prescriptions Disp Refills simvastatin (ZOCOR) 40 mg tablet 90 tablet 3 Sig: Take 1 tablet by mouth daily at bedtime. [facility] 07/23/23 NOV 12/05/23 Please review and advise. Christian Bob documented in this encounter [facility] 08-07-2023 Miscellaneous Notes Forms completed and signed and faxed back to [place] at [phone]. Patient informed. Lulu Cleary Type of form: Patient Assistance. [place] [employer] Form received via walk in When form is completed, Fax form to number on form. Form has been forwarded to Physician Desk: Dr. Virgen. Lulu Cleary documented in this encounter [facility] 07-23-2023 History of Presen t illness Narrative [...] 2023 2:55 PM documented in this encounter [facility] 07-23-2023 Note HNO ID: [id number] Author: Kameron Arrington RT(R) Service: Radiology Author [...] Arrington, RT(R) July 23, 2023 2:55 PM [facility] 07-23-2023 Note HNO ID: [id number] Author: Jarvis Nicole MD Service: ? Author [...] mouth every 12 hours. Prescribed by outside financing analyst famotidine (PEPCID) 20 mg tablet Take 1 [...] three times daily before meals. Getting through [facility] metFORMIN ER (GLUCOPHAGE XR) 500 [...] Yes COMPOUNDED PRESCRIPTION 1 Each twice daily. [employer] compact test strips, dx-NIDDM senna (SENOKOT) 8.6 [...] and extension, good (more content not included)... [facility] 07-23-2023 History of Presen t [...] mouth every 12 hours. Prescribed by outside financing analyst famotidine (PEPCID) 20 mg tablet Take 1 [...] times daily before meals. Getting through [facility] metFORMIN ER (GLUCOPHAGE XR) 500 [...] Jarvis Nicole MD documented in this encounter [facility] 07-13-2023 Miscellaneous Notes Notified that will place in medical records for cloth picker. Can cloth picker starting tomorrow 07/14/23. Printed. Received notification that patient will be due for re-enrollment for the [facility] patient assistance programs of Humalog and Basaglar starting 09/17/23. Call to daughter and advised her of this. She will start the process and get it to us. She is asking for a handicap placard to be completed for pt. Once done, call her for cloth picker. Janet King Ma documented in this encounter [facility] 06-19-2023 Miscellaneous Notes Patient has been identified [...] Jackelin Tinajero RN documented in this encounter [facility] 06-09-2023 History of Presen t illness Narrative [...] three times daily before meals. Getting through [facility] metFORMIN ER (GLUCOPHAGE XR) 500 [...] mouth every 12 hours. Prescribed by outside financing analyst aspirin 81 mg chewable tablet Take 81 [...] Jarvis Nicole MD documented in this encounter [facility] 06-09-2023 Miscellaneous Notes Reason for Call: Cough, [...] last 30 days. Protocols used: Influenza - Ucxtoipy-TFULC-MI documented in this encounter [facility] 06-07-2023 Miscellaneous Notes Patient has been identified [...] Kennedi Frey LPN documented in this encounter [facility] 06-06-2023 History of Past i llness Narrative [...] of this encounter (statuses as of 06/06/2023) [facility] History of Past illness Narrative* Problem Noted [...] of this encounter (statuses as of 06/08/2023) [facility] of Past illness Narrative* Problem Noted [...] of this encounter (statuses as of 06/09/2023) [facility] of Past illness Narrative* Problem Noted [...] of this encounter (statuses as of 06/09/2023) [facility] History of Past illness Narrative* Problem Noted [...] of this encounter (statuses as of 06/21/2023) [facility] History of Past illness Narrative* Problem Noted [...] of this encounter (statuses as of 07/13/2023) [facility] History of Past illness Narrative* Problem Noted [...] of this encounter (statuses as of 07/24/2023) [facility] History of Past illness Narrative* Problem Noted [...] of this encounter (statuses as of 08/08/2023) [facility] History of Past illness Narrative* Problem Noted [...] of this encounter (statuses as of 08/29/2023) [facility] History of Past illness Narrative* Problem Noted [...] of this encounter (statuses as of 09/07/2023) [facility] of Past illness Narrative* Problem Noted [...] of this encounter (statuses as of 10/14/2023) [facility] History of Past illness Narrative* Problem Noted [...] of this encounter (statuses as of 11/02/2023) [facility] of Past illness Narrative* Problem Noted [...] of this encounter (statuses as of 11/15/2023) [facility] of Past illness Narrative* Problem Noted [...] of this encounter (statuses as of 11/15/2023) [facility] History of Past illness Narrative* Problem Noted [...] of this encounter (statuses as of 12/26/2023) [facility] of Past illness Narrative* Problem Noted [...] of this encounter (statuses as of 01/01/2024) [facility] of Past illness Narrative* Problem Noted [...] of this encounter (statuses as of 01/02/2024) [facility] of Past illness Narrative* Problem Noted [...] of this encounter (statuses as of 01/02/2024) [facility] History of Present illness Narrative* Jeff Virgen [...] Abs Lymph 1.00 - 4.00 k/uL 1.48 Sweet Grass% % 9.5 Abs [place] <0.87 k/uL 1.16 (H) Eosin% % 1.7 [...] Ketones, Urine Trace, Negative Negative Negative Specific [place], Ur 1.005 - 1.030 1.022 1.022 Hemoglobin/Blood,Ur [...] three times daily before meals. Getting through [facility] losartan-hydroCHLOROthiazide (HYZAAR) 100-12.5 mg per tablet [...] mouth every 12 hours. Prescribed by outside financing analyst aspirin 81 mg chewable tablet Take 81 [...] I48.0 - stable. Stay on meds. See [facility] in the winter again. 4. [...] cough. Jeff Virgen MD [facility] Miscellaneous Notes* Telephone Encounter - Angelina Bliss [...] advise. Kristina Higuera LPN [facility] Instructions* Patient Instructions* Osvaldo Travis PA-C - 05/18/2023 4:12 PM EDT Please push fluids with water, non-caffeinated and non-alcoholic beverages, 6-8 glasses today. If you feel weak, faint, or have chest pain, call 911 and have the squad take you to ER. Try to stay cool for the next few days and rest. [facility] History of Present illness Narrative* Osvaldo Travis [...] times daily before meals. Getting through [facility] 5 Each 1 losartan-hydroCHLOROthiazide (HYZAAR) 100-12.5 mg [...] mouth every 12 hours. Prescribed by outside financing analyst aspirin 81 mg chewable tablet Take 81 [...] a chair. Negative Romberg. No past-pointing, normal zfxi-wy-ofje. Seems stiff which I think is affecting his gait. EKG demonstrates normal sinus rhythm with first-degree AV block with VA of 222 MS, otherwise metrics are normal. 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 There is no change from prior EKG 03/01/2023 online under [facility]: I was able to download [...] there. Osvaldo Travis PA-C [facility] Miscellaneous Notes* Telephone Encounter - Jeff Virgen [...] and advise. Gin Khan documented in this [facility]08-25-2023 Miscellaneous Notes* Telephone Encounter - Anthony Henley LPN - 05/11/2023 3:48 PM EDT Forms completed and faxed. * Telephone Encounter - Anthony Henley LPN - 05/11/2023 3:08 PM EDT Type of form: Prescription Assistance Form received via walk in When form is completed, Fax form to [phone] Form has been forwarded to Physician Desk: Dr. Marilynn Henley LPN documented in this [facility]08-15-2023 History of Present illness Narrative* Osvaldo Travis PA-C - 05/01/2023 3:24 PM EDT Here to review bleeding area from largest skin tag removal yesterday. No areas bleeding on exam. Instructed if bleeding, hold pressure solidly for 5 minutes and recheck. BP 118/70 Pulse 80 Temp 36.6 C (97.9 F) (Left Tympanic) Resp 20 SpO2 96% Osvaldo Travis PA-C documented in this [facility]08-14-2023 Instructions* Patient Instructions* Osvaldo Travis PA-C - [...] recheck in three weeks. [facility] History of Present illness Narrative* Osvaldo Travis [...] three times daily before meals. Getting through [employer] 5 Each 1 ELIQUIS 5 mg tab(s) [...] mouth every 12 hours. Prescribed by outside financing analyst aspirin 81 mg chewable tablet Take 81 [...] appointment Osvaldo Travis PA-C [facility] Miscellaneous Notes* Telephone Encounter - Shaye Schafer [...] Thank you. MANDI Santos [facility] Miscellaneous Notes* Telephone Encounter - Denisha Shepard APRN.CNP - 03/22/2023 12:48 PM EDT This encounter was opened in error. documented in [facility] Instructions* Patient Instructions* Andrew Guallpa APRN.CNP - [...] more? National Digestive Diseases Information Clearinghouse2 Information [place], [place] [address] www.digestive.niddk.nih.gov email: References: National Digestive Diseases Information Clearinghouse. Constipation. digestive.niddk.nih.gov Accessed June 21, 2012. [employer]. Understanding Constipation. www.gastro.org. Accessed June 21, 2012. Copyright 4641-9639 [facility]. All rights reserved This information is provided by the [facility] and is not intended to replace the medical advice of your doctor or health care provider. Please consult your health care provider for advice about a specific medical condition. For additional health information, please contact the Center for Consumer Health Information at the [facility] or toll-free extension [phone]. If you prefer, you may visit [email or web address] or [email or web address]. This document was last reviewed on: 2012 index #4051 documented in this encounterKindred Healthcare06-19-2023 History of Present illness Narrative* Andrew Guallpa [...] mouth every 12 hours. Prescribed by outside financing analyst aspirin 81 mg chewable tablet Take 81 [...] of care. This note was generated using [employer] software. It may contain errors in wording, punctuation, or spelling. Andrew Guallpa APRN.CAESAR documented in this encounterKindred Healthcare06-16-2023 History of Present illness Narrative* Jeff Virgen MD - 03/02/2023 4:21 PM EDT Patient presents with: ED Follow-up HPI: Patient presents today for office visit for ER follow up. HOSPITAL/ER FOLLOW UP: Reason for visit: 02/26/23 hypoglycemia (40) 03/01/23 abd pain and nausea Which facility: [facility] Diagnosis: mild dehydration, abd pain Testing done: [...] mouth every 12 hours. Prescribed by outside financing analyst aspirin 81 mg chewable tablet Take 81 [...] UROLOGY Jeff Virgen MD documented in this encounterKindred Healthcare06-08-2023 Miscellaneous Notes* Telephone Encounter - Tammy Davies [...] daily?If so will need new rx to [facility] pharmacy. Please advise documented in this encounterKindred Healthcare06-02-2023 Miscellaneous Notes* Telephone Encounter - Janet King [...] repeated in 10-14 days. documented in this encounterKindred Healthcare06-02-2023 Instructions* Patient Instructions* Denisha Shepard APRN.CNP - 02/16/2023 3:08 PM EDT Tim wrap. Rest Ice Prop the foot. Tylenol as needed. documented in this encounterKindred Healthcare06-02-2023 History of Present illness Narrative* Denisha Shepard [...] mouth every 12 hours. Prescribed by outside financing analyst aspirin 81 mg chewable tablet Take 81 [...] agrees with the plan. documented in this encounterKindred Healthcare05-31-2023 Nurse Note* Michelle Jara RN - 02/14/2023 [...] well. Michelle Jara RN documented in this encounterKindred Healthcare05-05-2023 History of Present illness Narrative* Jeff Virgen [...] times daily before meals. Getting through [facility] ELIQUIS 5 mg tab(s) Take 1 tablet [...] mouth every 12 hours. Prescribed by outside financing analyst aspirin 81 mg chewable tablet Take 81 [...] SURGERY Jeff Virgen MD documented in this encounterKindred Healthcare03-15-2023 History of Present illness Narrative* Jeff Virgen MD - 11/29/2022 9:33 AM EDT Patient presents with: Transition Of Care HPI: Patient presents today for office visit for hospital follow up. Seen in [facility] on 11/21/22. Discharged 11/21/22 Chest pain. No [...] note: TRANSITION CARE MANAGEMENT (TCM) INITIAL CONTACT Service Person Outreach Provider Action/FYI: -pt admitted to [facility] on 11/21/22 for 24hr observation d/t chest [...] Abs Lymph 1.00 - 4.00 k/uL 1.95 Sweet Grass% % 9.8 Abs Sweet Grass <0.87 k/uL 1.09 (H) Eosin% % 4.1 [...] mouth every 12 hours. Prescribed by outside financing analyst aspirin 81 mg chewable tablet Take 81 [...] stable. Jeff Virgen MD documented in this encounterKindred Healthcare03-13-2023 Miscellaneous Notes* Telephone Encounter - Sheila Murcia [...] as the lab orders are in. PH> [phone]. Kennedi Frey LPN * Telephone Encounter - [...] Thank you, Michaelle HERBERT documented in this encounterKindred Healthcare03-08-2023 History of Present illness Narrative* Christian Bob LPN - 11/22/2022 9:23 AM EST TRANSITION CARE MANAGEMENT (TCM) INITIAL CONTACT Service Person Outreach Provider Action/FYI: -pt admitted to [facility] on 11/21/22 for 24hr observation d/t chest [...] flowsheet data found. SUMMARY: -Pt discharged from [facility] on 11/21/22. -Admitted for: Chest Pain Do you have a hospital follow up appointment with your PCP? Appointment on 11/[address] Virgen. Yes. Remind patient of appointment date, time, and location. If not within 14 calendar days of discharge - please reschedule accordingly. Medical records from recent hospitalization: Epic Placed in provider mailbox for further review. documented in this encounterKindred Healthcare02-25-2023 Miscellaneous Notes* Telephone Encounter - Christian Bob LPN - 11/11/2022 10:44 AM EST Patient phones requesting refills as follows: Requested Prescriptions Pending Prescriptions Disp Refills losartan-hydroCHLOROthiazide (HYZAAR) 100-12.5 mg per tablet 90 tablet 1 Sig: Take 1 tablet by mouth once daily. Please review and advise. Christian Bob LPN documented in this encounterKindred Healthcare02-24-2023 Miscellaneous Notes* Telephone Encounter - Gin Herbert [...] advise. Gin Longoria Pss documented in this encounterKindred Healthcare02-09-2023 Miscellaneous Notes* Telephone Encounter - Kaitlyn Hernández [...] refill. Daughter expressed understanding. Kaitlyn Hernández PharmD, [facility] Primary Care Clinical Pharmacist documented in this encounterKindred Healthcare01-30-2023 Miscellaneous Notes* Addendum Note - Kaitlyn Hernández [...] what copay is. If affordable, she will cloth picker supply. If not affordable, she will [...] Will await daughter's call. Kaitlyn Hernández PharmD, [facility] Primary Care Clinical Pharmacist * Telephone Encounter - Kaitlyn Hernández RPh - 10/16/2022 12:24 PM EST Patient's daughter, Loan, called PharmD and LMOM stating patient will be running out of insulin tomorrow, needs another free trial card. Patient has application in for [employer] P[employer]. She called [employer] this AM, states they still have not [...] to keep me informed. Kaitlyn Hernández PharmD, [facility] Primary Care Clinical Pharmacist documented in this encounterKindred Healthcare01-18-2023 Miscellaneous Notes* Telephone Encounter - Christian Bob LPN - 10/04/2022 9:32 AM EST Patient phones requesting refills as follows: Requested Prescriptions Pending Prescriptions Disp Refills metFORMIN ER (GLUCOPHAGE XR) 500 mg 24 hr tablet 360 tablet 3 Sig: Take 2 tablets by mouth twice daily before meals. ALFA 05/31/22 11/29/22 Please review and advise. Christian Bob LPN documented in this encounterKindred Healthcare01-18-2023 Miscellaneous Notes* Telephone Encounter - Christian Bob LPN - 10/04/2022 9:31 AM EST Patient phones requesting refills as follows: Requested Prescriptions Pending Prescriptions Disp Refills carvedilol (COREG) 25 mg tablet 180 tablet 1 Sig: Take 1 tablet by mouth twice daily. ALFA 05/31/22 11/29/22 Please review and advise. Christian Bob LPN documented in this encounterKindred Healthcare01-13-2023 Miscellaneous Notes* Telephone Encounter - Kaitlyn Edgar, [facility] - 09/29/2022 9:18 AM EST Patient's daughter, Loan, called PharmD and LMOM stating the [facility] application for insulins was submitted this week [...] spoke with patient's daughter. Sent her a Kumo message with a Basaglar Free Trial Offer. [...] User: KAITLYN HERNÁNDEZ RPh documented in this encounterKindred Healthcare01-10-2023 Miscellaneous Notes* Telephone Encounter - Janet King Ma - 09/26/2022 9:51 AM EST Talked to daughter and advised of time and fax number. Janet King Ma * Telephone Encounter - Anthony Henley LPN - 09/25/2022 8:01 PM EST Sent from [phone] at 8:00pm. (If no error report in [...] give to daughter so she can have [facility] shipped for this week. * Telephone Encounter [...] of medications assistance forms for insulins through [employer]. Asking if these were received and fill out? Please fax this [phone]. Please contact Loan back either way. If provider does not have form Loan can come by and drop of other form. Please review and advise, Reanna Greenberg RN documented in this encounterKindred Healthcare12-05-2022 Miscellaneous Notes* Telephone Encounter - Alejandrina Emmanuel [...] patient. Alejandrina Emmanuel Pss documented in this encounterKindred Healthcare11-21-2022 Miscellaneous Notes* Telephone Encounter - Reanna Greenberg [...] tetanus booster? Unsure Protocols used: Skin Foreign [id number] documented in this encounterKindred Healthcare10-06-2022 Miscellaneous Notes* Telephone Encounter - Kaitlyn Hernández RP - 06/22/2022 11:52 AM EDT PharmD sent request to PAP technicians to assist with [facility] application for Jardiance 10mg daily. Kaitlyn Hernández PharmD, [facility] Primary Care Clinical Pharmacist Electronically signed by Kaitlyn Hernández [facility] at 06/22/2022 11:53 AM EDT documented in this encounterKindred Healthcare10-06-2022 History of Present illness Narrative* Kaitlyn Hernández [facility] - 06/22/2022 11:00 AM EDT Primary Care [...] adverse effects DIET/EXERCISE/SOCIAL Hx: Has been eating [employer] food a lot this summer; went to [place] [employer] daily; goes several times per week Fried veggies, sandwiches Breakfast: couple of eggs, 4 pieces muñoz; occasionally will have waffle Lunch: yesterday had small serving mashed potatoes, baked beans, and steak Dinner: usually the same as lunch; occasionally will have salad No exercise MEDICATIONS: Pill bottles are not present Adherence: denies missed doses Pharmacy: [facility] [place] Rx coverage: [employer] Affordability: Gets Eliquis, Humalog, [...] mouth every 12 hours. Prescribed by outside financing analyst insulin glargine (LANTUS SOLOSTAR U-100 INSULIN) 100 [...] verbalized understanding of instructions. Kaitlyn Hernández PharmD, [facility] Primary Care Clinical Pharmacist The majority of the pharmacy visit (> 50%) was spent counseling and/or coordinating care for thepatient. interaction: face to face time was 35 minutes. documented in this encounterKindred Healthcare10-06-2022 Instructions* Patient Instructions* Kaitlyn Hernández RPh - 06/22/2022 11:00 AM EDT START Jardiance 10mg daily. If it is too expensive, let me know. Start to work on your diet. We want all blood sugars to be less than 200 mg/dL. documented in this encounterKindred Healthcare09-14-2022 History of Present illness Narrative* Jeff Virgen [...] Abs Lymph 1.00 - 4.00 k/uL 1.67 Sweet Grass% % 11.8 Abs Sweet Grass <0.87 k/uL 1.20 (H) Eosin% % 3.3 [...] mouth every 12 hours. Prescribed by outside financing analyst simvastatin (ZOCOR) 40 mg tablet Take 1 [...] RTO in six month documented in this encounterKindred Healthcare08-22-2022 Miscellaneous Notes* Telephone Encounter - Christian Bob LPN - 05/08/2022 5:59 PM EDT Patient phones requesting refills as follows: Requested Prescriptions Pending Prescriptions Disp Refills losartan-hydroCHLOROthiazide (HYZAAR) 100-12.5 mg per tablet 90 tablet 1 Sig: Take 1 tablet by mouth once daily. ALFA 03/03/22 NOV 05/31/22 Please review and advise. Christian Bob LPN documented in this encounterKindred Healthcare07-23-2022 History of Present illness Narrative* Andrew Guallpa APRN.JIG GRINDER - 04/08/2022 2:52 PM EDT Subjective HPI [...] mouth every 12 hours. Prescribed by outside financing analyst simvastatin (ZOCOR) 40 mg tablet Take 1 [...] care. Andrew Guallpa APRN.CAESAR documented in this encounterKindred Healthcare07-07-2022 Miscellaneous Notes* Telephone Encounter - Kaitlyn Hernández RPh - 03/23/2022 1:22 PM EDT PharmD completed Rx section of [employer] application for Basaglar (to replace Lantus). Full application not required since patient already enrolled and receiving free Humalog. Rx placed on PCP's desk for signature. Kaitlyn Hernández PharmD, [facility] Primary Care Clinical Pharmacist Lisa Souza [facility] documented in this encounterKindred Healthcare07-07-2022 History of Present illness Narrative* Kaitlyn Hernández, [facility] - 03/23/2022 11:00 AM EDT Primary Care [...] Adherence: denies missed doses Pharmacy: [facility] [place] Rx coverage: [employer] Affordability: Gets Eliquis, Humalog, and Sanofi through [employer] Diabetes supplies: [employer] System: daughter sets up pill box, 2 [...] mouth every 12 hours. Prescribed by outside financing analyst insulin glargine (LANTUS SOLOSTAR U-100 INSULIN) 100 [...] Basaglar so he can get it through [employer] to replace Lantus Applauded on reducing portion [...] [facility]PS Primary Care Clinical Pharmacist Lisa Souza [facility] The majority of the pharmacy visit (> 50%) was spent counseling and/or coordinating care for thepatient. interaction: face to face time was 35 minutes. documented in this encounterKindred Healthcare07-07-2022 Instructions* Patient Instructions* Kaitlyn Hernández RPh - [...] cuffs are more accurate than wrist cuffs. Electronically signed by Kaitlyn Hernández [facility] at 03/23/2022 11:40 AM EDT documented in this encounterKindred Healthcare06-20-2022 Miscellaneous Notes* Telephone Encounter - Jeff Virgen [...] and resend to the [facility] on [address]. Daughter, Loan, can be reached at [phone] documented in this encounterKindred Healthcare06-20-2022 Miscellaneous Notes* Telephone Encounter - Anthony Helney LPN - 03/06/2022 12:13 PM EDT Patient [...] 03/06/22 Anthony Henley LPN documented in this encounterKindred Healthcare06-17-2022 History of Present illness Narrative* Jeff Virgen [...] mouth every 12 hours. Prescribed by outside financing analyst Losartan-hydroCHLOROthiazide 100-12.5 mg per tablet Take 1 [...] three months and prn. documented in this encounterKindred Healthcare05-26-2022 Miscellaneous Notes* Telephone Encounter - Anthony Henley LPN - 02/09/2022 11:36 AM EDT [facility] [address] Chart Copy of medications dispensed to patient for home use February 09, 2022 Physician Initial: MIRANDA Alarcon Medication: Lantus Qty: 5 boxes Directions: Inject 90 units daily. Medications administered, dispensed and verified on the date indicated above Patient has been notified to cloth picker medication in Dr. Virgen's office. Anthony Henley LPN documented in this encounterKindred Healthcare05-24-2022 Miscellaneous Notes* Telephone Encounter - Kaitlyn Hernández RPh - 02/07/2022 10:17 AM EDT PharmClovis called daughter. She said they were able to get Lantus yesterday, got full box of Lantus for$35 (insurance covered it). PharmClovis spoke with daughter, will plan to apply for Basaglar PAP [employer] in March at next PharmD appt so patient doesn't have this issue again with Sanofi. Kaitlyn Hernández PharmD, [facility] Primary Care Clinical Pharmacist Kamala [facility] * Telephone Encounter - Kaitlyn Hernández RPh [...] me updated on status. Kaitlyn Hernández PharmD, [facility] Primary Care Clinical Pharmacist Lisa Souza [facility] * Telephone Encounter - Kaitlyn Hernández RPh [...] Semglee - can purchase a vial from [employer] with a GoodRx coupon for ~$60. Patient [...] She has no issues getting Humalog through [employer]. Briefly discussed possibly switching patient from Lantus to Basaglar later this summer so no longer has issues with insulin supply. Daughter thought this would be a good idea so will do paperwork later this summer. PharmClovis will await daughter's call. Kaitlyn Hernández PharmD, [facility] Primary Care Clinical Pharmacist Kamala LUNSFORD Lisa [facility] * Telephone Encounter - Anthony Henley LPN [...] patient insurance. Family could checkwith [employer]([phone]) for short term cost assistance. Negrita will also send note to Diana as Sw noted that patient follows with Kaitlyn in regards to hisdiabetes care and see if she has any short term assistance ideas. * Telephone Encounter - Anthony Henley LPN - 02/06/2022 10:02 AM EDT Patient daughter states that [employer] sends refill form to our office 1 [...] MD] Preferred pharmacy: [facility] [address] - [address] - [phone] Delivery method: MailD Daughter says patient will be out of the medication tonight. The shipment for this medication does not go out until today so she is asking for a pen that he could have. Please return call to daughter, [phone] documented in this encounterKindred Healthcare05-20-2022 Instructions* Patient Instructions* Papito Castano V, DO - 02/03/2022 2:02 PM EDT Thank you for choosing the [facility] for your acute care needs. [...] physician or booking an appointment, please call [phone] or speak with any Patient [facility]. Hours: Sunday through Sunday 7:30 am to 7:00 pm. Sunday and Sunday: 8:00 am to 2:30 pm. documented in this encounterKindred Healthcare05-20-2022 History of Present illness Narrative* Papito Castano [...] [facility]. [facility] PAST MEDICAL HISTORY [...] mouth every 12 hours. Prescribed by outside financing analyst Losartan-hydroCHLOROthiazide 100-12.5 mg per tablet Take 1 [...] Continuous Intervention/Comfort measure: Medication documented in this encounterKindred Healthcare05-18-2022 Miscellaneous Notes* Telephone Encounter - Tammy Davies LPN - 02/01/2022 10:28 AM EDT Patient daughter Loan calling asking for refill on father Lantus insulin 90 day supply from Patient assistance with [employer]. Yesterday request was not sent correctly. She said gets faxed to [employer]. The Insulin gets mailed to his home. She did not have the fax number, she gave me phone number for [employer] [phone]. Father has 4 days Lantus left. Please advise documented in this encounterKindred Healthcare05-17-2022 Miscellaneous Notes* Telephone Encounter - Janet King [...] patient. Radha Frey Pss documented in this encounterKindred Healthcare05-13-2022 History of Present illness Narrative* Saad Park APRN.JIG GRINDER - 01/27/2022 3:27 PM EDT Images from the original note were not included. Subjective HPI HPI Faisal Alarcon is a 76 year old male who presents today for CC of sudden right calf pain while getting onto ancillary specialist. This started today. Has tried nothing for relief. Symptoms are worsened by walking. Denies numbness/tingling of right lower extremity. .Patient presents with: right calf pain: x 2 hours-pulled something getting on ancillary specialist PAST MEDICAL HISTORY Diagnosis Date DIABETES MELLITUS [...] mouth every 12 hours. Prescribed by outside financing analyst insulin glargine (LANTUS SOLOSTAR U-100 INSULIN) 100 [...] plan Saad Park APRN.CAESAR documented in this encounterKindred Healthcare04-28-2022 Miscellaneous Notes* Telephone Encounter - Kaitlyn Hernández RPh - 01/12/2022 3:09 PM EDT During PharmD visit for DM today, patient's daughter reported patient needs a refill of colestipol.Refill order pended for PCP signature if appropriate. Pending Prescriptions Disp Refills COLESTIPOL 1 GRAM TABLET 60 tablet 5 Sig: Take 1 tablet by mouth twice daily. JANET: No Kaitlyn Hernández RPh documented in this encounterKindred Healthcare04-28-2022 History of Present illness Narrative* Kaitlyn Hernández [...] mouth every 12 hours. Prescribed by outside financing analyst flecainide (TAMBOCOR) 150 mg tablet Take 150 [...] complication, with long-term current use of insulin ([facility]) - ICD9: 250.00, V58.67, ICD10: E11.9, Z79.4 [...] [facility] Primary Care Clinical Pharmacist Lisa Souza [facility] The majority of the pharmacy visit (> 50%) was spent counseling and/or coordinating care for thepatient. interaction: face to face time was 35 minutes. documented in this encounterKindred Healthcare04-28-2022 Instructions* Patient Instructions* Kaitlyn Hernández RPh - [...] butter DRINK MORE WATER documented in this encounterKindred Healthcare04-18-2022 Miscellaneous Notes* Telephone Encounter - Kaitlyn Hernández RPh - 01/02/2022 2:42 PM EDT PharmClovis called [facility] ([phone]) and spoke with a helpful sales training representative. She stated patient is due to have a shipment tomorrow. [employer] changed the delivery information so this shipment will be shipped to patient's home. PharmD called patient's daughter, Loan, and informed of the above information. Kaitlyn Hernández PharmD, [facility] Primary Care Clinical Pharmacist Lisa Souza [facility] * Telephone Encounter - Denisha Shepard APRN.CNP - 12/30/2021 5:51 PM EDT Is this something that can be done, or does it need to come here? * Telephone Encounter - Nisha Wilson - 12/30/2021 12:05 PM EDT Patient's daughter calling regarding patient's request for medicationi nsulin lispro (HUMALOG KWIKPEN INSULIN) 100 unit/mL . DaughterLoan says the medication is shipped by [employer], . Medication is being sent to [facility] instead of patient's home. Daughter is asking for this to be changed to being delivered to patient's home. Please return call to Loan ([phone]) when corrected. documented in this encounterKindred Healthcare04-14-2022 Miscellaneous Notes* Telephone Encounter - Leslie Herbert [...] notify patient. Leslie Herbert documented in this encounterKindred Healthcare04-14-2022 Miscellaneous Notes* Telephone Encounter - Janet King [...] corrected script for Humalog is sent to [facility]. The last script sent was for 16 units and not 26 units. He is going to run out of insulin Please advise insulin lispro (HUMALOG KWIKPEN INSULIN) 100 unit/mL 5 Pen 1 11/03/2021 Sig: Inject 26 Units subcutaneously three times daily before meals. Class: Med Update Route: SUBCUTANEOUS documented in this encounterKindred Healthcare03-31-2022 Miscellaneous Notes* Telephone Encounter - Janet King [...] [facility] Primary Care Clinical Pharmacist Lisa Souza [facility] documented in this encounterKindred Healthcare10-27-2021 History of Present illness Narrative* Maisha Ortiz [...] 13, 2021 10:08 AM documented in this encounterKindred Healthcare09-08-2021 History of Present illness Narrative* Kameron Arrington [...] 25, 2021 2:53 PM documented in this encounterKindred Healthcare05-17-2021 History of Past illness Narrative* Problem Noted Date Resolved Date SOB (shortness of breath) 01/31/20212020 Abnormal EKG 01/31/2021 05/06/2021 Sciatica 06/15/2005 05/06/2021 Paranoid schizophrenia, subc hronic condition with acute exacerbation 05/11/2005 04/23/2017 documented as of this encounter (statuses as of 12/12/2021) [address]17-2021 History of Past illness Narrative* Problem Noted Date Resolved Date SOB (shortness of breath) 01/31/20212020 Abnormal EKG 01/31/2021 05/06/2021 Sciatica 06/15/2005 05/06/2021 Paranoid schizophrenia, subc hronic condition with acute exacerbation 05/11/2005 04/23/2017 documented as of this encounter (statuses as of 12/15/2021) [facility] of Past illness Narrative* Problem Noted Date Resolved Date SOB (shortness of breath) 01/31/20212020 Abnormal EKG 01/31/2021 05/06/2021 Sciatica 06/15/2005 05/06/2021 Paranoid schizophrenia, subc hronic condition with acute exacerbation 05/11/2005 04/23/2017 documented as of this encounter (statuses as of 12/29/2021) [facility]17[facility] History of Past illness Narrative* Problem Noted Date Resolved Date SOB (shortness of breath) 01/31/20212020 Abnormal EKG 01/31/2021 05/06/2021 Sciatica 06/15/2005 05/06/2021 Paranoid schizophrenia, subc hronic condition with acute exacerbation 05/11/2005 04/23/2017 documented as of this encounter (statuses as of 01/02/2022) [facility]-17-[facility] History of Past illness Narrative* Problem Noted Date Resolved Date SOB (shortness of breath) 01/31/20212020 Abnormal EKG 01/31/2021 05/06/2021 Sciatica 06/15/2005 05/06/2021 Paranoid schizophrenia, subc hronic condition with acute exacerbation 05/11/2005 04/23/2017 documented as of this encounter (statuses as of 01/12/2022) [facility] History of Past illness Narrative* Problem Noted Date Resolved Date SOB (shortness of breath) 01/31/20212020 Abnormal EKG 01/31/2021 05/06/2021 Sciatica 06/15/2005 05/06/2021 Paranoid schizophrenia, subc hronic condition with acute exacerbation 05/11/2005 04/23/2017 documented as of this encounter (statuses as of 01/12/2022) [facility] History of Past illness Narrative* Problem Noted Date Resolved Date SOB (shortness of breath) 01/31/20212020 Abnormal EKG 01/31/2021 05/06/2021 Sciatica 06/15/2005 05/06/2021 Paranoid schizophrenia, subc hronic condition with acute exacerbation 05/11/2005 04/23/2017 documented as of this encounter (statuses as of 01/27/2022) [facility] History of Past illness Narrative* Problem Noted Date Resolved Date SOB (shortness of breath) 01/31/20212020 Abnormal EKG 01/31/2021 05/06/2021 Sciatica 06/15/2005 05/06/2021 Paranoid schizophrenia, subc hronic condition with acute exacerbation 05/11/2005 04/23/2017 documented as of this encounter (statuses as of 01/31/2022) [facility] History of Past illness Narrative* Problem Noted Date Resolved Date SOB (shortness of breath) 01/31/20212020 Abnormal EKG 01/31/2021 05/06/2021 Sciatica 06/15/2005 05/06/2021 Paranoid schizophrenia, subc hronic condition with acute exacerbation 05/11/2005 04/23/2017 documented as of this encounter (statuses as of 02/01/2022) [facility] History of Past illness Narrative* Problem Noted Date Resolved Date SOB (shortness of breath) 01/31/20212020 Abnormal EKG 01/31/2021 05/06/2021 Sciatica 06/15/2005 05/06/2021 Paranoid schizophrenia, subc hronic condition with acute exacerbation 05/11/2005 04/23/2017 documented as of this encounter (statuses as of 02/02/2022) [facility] History of Past illness Narrative* Problem Noted Date Resolved Date SOB (shortness of breath) 01/31/20212020 Abnormal EKG 01/31/2021 05/06/2021 Sciatica 06/15/2005 05/06/2021 Paranoid schizophrenia, subc hronic condition with acute exacerbation 05/11/2005 04/23/2017 documented as of this encounter (statuses as of 02/03/2022) [facility] History of Past illness Narrative* Problem Noted Date Resolved Date SOB (shortness of breath) 01/31/20212020 Abnormal EKG 01/31/2021 05/06/2021 Sciatica 06/15/2005 05/06/2021 Paranoid schizophrenia, subc hronic condition with acute exacerbation 05/11/2005 04/23/2017 documented as of this encounter (statuses as of 02/07/2022) [facility] History of Past illness Narrative* Problem Noted Date Resolved Date SOB (shortness of breath) 01/31/20212020 Abnormal EKG 01/31/2021 05/06/2021 Sciatica 06/15/2005 05/06/2021 Paranoid schizophrenia, subc hronic condition with acute exacerbation 05/11/2005 04/23/2017 documented as of this encounter (statuses as of 02/09/2022) [facility] History of Past illness Narrative* Problem Noted [...] of this encounter (statuses as of 03/03/2022) [facility] History of Past illness Narrative* Problem Noted [...] of this encounter (statuses as of 03/06/2022) [facility] History of Past illness Narrative* Problem Noted [...] of this encounter (statuses as of 03/06/2022) [facility] History of Past illness Narrative* Problem Noted [...] of this encounter (statuses as of 03/23/2022) [facility] History of Past illness Narrative* Problem Noted [...] of this encounter (statuses as of 03/23/2022) [facility] History of Past illness Narrative* Problem Noted [...] of this encounter (statuses as of 04/08/2022) [facility] History of Past illness Narrative* Problem Noted [...] of this encounter (statuses as of 05/08/2022) [facility] History of Past illness Narrative* Problem Noted [...] of this encounter (statuses as of 05/31/2022) [facility] History of Past illness Narrative* Problem Noted [...] of this encounter (statuses as of 06/22/2022) [facility] History of Past illness Narrative* Problem Noted [...] of this encounter (statuses as of 06/22/2022) [facility] History of Past illness Narrative* Problem Noted [...] of this encounter (statuses as of 08/14/2022) [facility] History of Past illness Narrative* Problem Noted [...] of this encounter (statuses as of 08/21/2022) [facility] History of Past illness Narrative* Problem Noted [...] of this encounter (statuses as of 09/26/2022) [facility] History of Past illness Narrative* Problem Noted [...] of this encounter (statuses as of 09/29/2022) [facility] History of Past illness Narrative* Problem Noted [...] of this encounter (statuses as of 10/04/2022) [facility] History of Past illness Narrative* Problem Noted [...] of this encounter (statuses as of 10/04/2022) [facility] History of Past illness Narrative* Problem Noted [...] of this encounter (statuses as of 10/16/2022) [facility] History of Past illness Narrative* Problem Noted [...] of this encounter (statuses as of 10/16/2022) [facility] History of Past illness Narrative* Problem Noted [...] of this encounter (statuses as of 10/26/2022) [facility] History of Past illness Narrative* Problem Noted [...] of this encounter (statuses as of 11/10/2022) [facility] History of Past illness Narrative* Problem Noted [...] of this encounter (statuses as of 11/13/2022) [facility] History [facility] Past illness Narrative* Problem Noted [...] of this encounter (statuses as of 11/22/2022) [facility] History of Past illness Narrative* Problem Noted [...] of this encounter (statuses as of 11/27/2022) [facility] History of Past illness Narrative* Problem Noted [...] of this encounter (statuses as of 11/29/2022) [facility] History of Past illness Narrative* Problem Noted [...] of this encounter (statuses as of 01/19/2023) [facility] History of Past illness Narrative* Problem Noted [...] of this encounter (statuses as of 02/14/2023) [facility] History of Past illness Narrative* Problem Noted [...] of this encounter (statuses as of 02/16/2023) [facility] History of Past illness Narrative* Problem Noted [...] of this encounter (statuses as of 02/17/2023) [facility] History of Past illness Narrative* Problem Noted [...] of this encounter (statuses as of 02/22/2023) [facility] History of Past illness Narrative* Problem Noted [...] of this encounter (statuses as of 03/03/2023) [facility] History of Past illness Narrative* Problem Noted [...] of this encounter (statuses as of 03/06/2023) [facility] History of Past illness Narrative* Problem Noted [...] of this encounter (statuses as of 03/20/2023) [facility] History of Past illness Narrative* Problem Noted [...] of this encounter (statuses as of 03/22/2023) [facility] History of Past illness Narrative* Problem Noted [...] of this encounter (statuses as of 04/13/2023) [facility] Past illness Narrative* Problem Noted [...] of this encounter (statuses as of 04/26/2023) [facility] of Past illness Narrative* Problem Noted [...] of this encounter (statuses as of 05/01/2023) [facility] History of Past illness Narrative* Problem Noted [...] of this encounter (statuses as of 05/02/2023) [facility] History of Past illness Narrative* Problem Noted [...] of this encounter (statuses as of 05/12/2023) [facility] History of Past illness Narrative* Problem Noted [...] of this encounter (statuses as of 05/17/2023) [facility] History of Past illness Narrative* Problem Noted [...] of this encounter (statuses as of 05/19/2023) [facility] History of Past illness Narrative* Problem Noted [...] of this encounter (statuses as of 06/04/2023) [facility] History of Present illness Narrative* Maisha Ortiz [...] 24, 2021 2:41 PM [facility] Diagnosis Type 2 diabetes mellitus without complication, with long-term current use of insulin (HCC) [facility] Diagnosis Type 2 diabetes mellitus without complication, with long-term current use of insulin (HCC) [facility] Diagnosis Type 2 diabetes mellitus without complication, with long-term current use of insulin (HCC) [facility] Diagnosis Type 2 diabetes mellitus without complication, with long-term current use of insulin (HCC)- Primary [facility] Diagnosis Diarrhea, unspecified type [facility] Diagnosis Strain of calf muscle, right, initial encounter- Primary [facility] Diagnosis Type 2 diabetes mellitus without complication, with long-term current use of insulin (HCC) [facility] Diagnosis Gastrocnemius tear, right, initial encounter- Primary [facility] Diagnosis Type 2 diabetes mellitus without complication, with long-term current use of insulin (HCC) [facility] Diagnosis Essential hypertension- Primary Unspecified essential hypertension Pure hypercholesterolemia Paroxysmal atrial fibrillation (HCC) Atrial fibrillation Type 2 diabetes mellitus with microalbuminuria, with long-term current use of insulin (HCC) Chronic anticoagulation Long-term (current) use of anticoagulants Need for hepatitis C screening test Special screening examination for other specified viral diseases [facility] Diagnosis Diarrhea, unspecified type [facility] Diagnosis Type 2 diabetes mellitus without complication, with long-term current use of insulin (HCC)- Primary Essential hypertension Unspecified essential hypertension [facility] Diagnosis Chest pain, unspecified type- Primary Accidental medication error, initial encounter [facility] Diagnosis Essential hypertension Unspecified essential hypertension [facility] Diagnosis Essential hypertension- Primary Unspecified essential hypertension Paroxysmal atrial fibrillation (HCC) Atrial fibrillation Pure hypercholesterolemia Type 2 diabetes mellitus with microalbuminuria, with long-term current use of insulin (HCC) Chronic anticoagulation Long-term (current) use of anticoagulants Monocytosis Monocytosis (symptomatic) Need for influenza vaccination Need for prophylactic vaccination and inoculation against influenza [facility] Diagnosis Type 2 diabetes mellitus without complication, with long-term current use of insulin (HCC)- Primary [facility] Diagnosis Pure hypercholesterolemia [facility] Diagnosis Type 2 diabetes mellitus without complication, with long-term current use of insulin (HCC) [facility] Diagnosis Type 2 diabetes mellitus with microalbuminuria, with long-term current use of insulin (HCC)- Primary [facility] Diagnosis Chest pain, unspecified type- Primary Leukocytosis, unspecified type Type 2 diabetes mellitus with microalbuminuria, 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, 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, chronic condition Paroxysmal atrial fibrillation (HCC) Atrial fibrillation Essential hypertension Unspecified essential hypertension Pure hypercholesterolemia [facility] Diagnosis Skin mass- Primary Localized superficial swelling, mass, or lump [facility] Diagnosis Lesion of subcutaneous tissue- Primary Unspecified disorder of skin and subcutaneous tissue [facility] Diagnosis Acute left ankle pain- Primary [facility] Diagnosis Nausea- Primary Nausea alone Hypoglycemia Hypoglycemia, unspecified Type 2 diabetes mellitus with microalbuminuria, with long-term current use of insulin (HCC) Leukocytosis, unspecified type Abnormal serum level of lipase Other nonspecific abnormal serum enzyme levels Benign prostatic hyperplasia with lower urinary tract symptoms, symptom details unspecified Urinary retention Retention of urine, unspecified [facility] Diagnosis Acute constipation- Primary Unspecified constipation [facility] Diagnosis OPENED IN ERROR- Primary To allow closing an encounter opened in error (used in SmartSet) [facility] Diagnosis Inflamed acrochordon- Primary Unspecified hypertrophic and atrophic condition of skin Seborrheic keratoses, inflamed Inflamed seborrheic keratosis [facility] Diagnosis Encounter for post surgical wound check- Primary [facility] Diagnosis Near syncope- Primary Syncope and collapse Fall, initial encounter Acute upper respiratory infection Acute upper respiratory infections of unspecified site Morbid obesity (HCC) Morbid obesity [facility] Diagnosis Essential hypertension- Primary Unspecified essential [...] not elsewhere classified [facility] Diagnosis Diarrhea, unspecified type [facility] Diagnosis Viral URI with cough- Primary Acute upper respiratory infections of unspecified site Suspected COVID-19 virus infection Bronchitis Bronchitis, not specified as acute or chronic [facility] Diagnosis Nausea Nausea alone [facility] Diagnosis Acute hip pain, right- Primary [facility] Diagnosis Pure hypercholesterolemia [facility] Diagnosis Essential hypertension Unspecified essential hypertension [facility] Diagnosis Type 2 diabetes mellitus without complication, with long-term current use of insulin (HCC)- Primary [facility]* Diagnosis Paroxysmal atrial fibrillation (HCC)- [...] of insulin (HCC) [facility] Diagnosis Paroxysmal atrial fibrillation (HCC)- [...] Nausea Nausea alone [facility] Diagnosis SOB (shortness of breath)- [...] Other ill-defined conditions [facility] Diagnosis Venous incompetence- Primary Unspecified venous (peripheral) insufficiency Lymphedema of left leg Other lymphedema Varicose veins of both legs with edema documented in this encounter [facility]* Diagnosis Abrasion of left hand, initial encounter- Primary documented in this encounter [facility] note* Diagnosis Encounter for medical assessment- Primary [facility] Diagnosis Essential hypertension Unspecified essential hypertension [facility]* Diagnosis SOB (shortness of breath) Shortness of breath Bilateral leg edema Edema Weight increase Abnormal weight gain [facility] Diagnosis Generalized weakness- Primary Other malaise and fatigue [facility]* Diagnosis Sinobronchitis Unspecified sinusitis (chronic) [facility]* Diagnosis Viral URI with cough Acute upper respiratory infections of unspecified site Bronchitis Bronchitis, not specified as acute or chronic [facility] Diagnosis Acute hip pain, right [facility] Diagnosis Acute left ankle pain [facility] Diagnosis Diarrhea, unspecified type documented in this encounter [facility] note* Diagnosis Rib pain Chest pain, unspecified [facility]* Diagnosis SOB (shortness of breath) Shortness of breath [facility] Diagnosis Essential hypertension- Primary Unspecified essential [...] (HCC) Psoriatic arthropathy [facility] Diagnosis Snoring- Primary Other dyspnea and respiratory abnormality Witnessed episode of apnea Nocturnal leg movements Abnormal involuntary movements Frequent nocturnal awakening Other sleep disturbances Nocturia documented in this encounter [facility] for referral (narrative)* Diagnostic Procedure Only (Urgent) - Closed Specialty Diagnoses / Procedures Referred By Contac t Referred To Contact XR IMAGING Diagnoses Acute left ankle pain Procedures XR ANKLE GENERAL 3V AP/LAT/OBL LEFT RADEX ANKLE COMPLETE MINIMUM 3 VIEWS Denisha Shepard APRN.CNP [address] [place] [address] Xr Imaging Referral ID Status Reason Start Date Expiration Date V isits Requested Visits Authorized [id number] Closed Auto-Generate d Referral 02/16/2023 03/17/2024 1 1 [facility] for referral (narrative)* Outpatient Procedure (Routine) - Authorized Specialty Diagnoses / Procedures [facility] Diagnoses Near syncope Fall, initial encounter Procedures ECG COMPLETE ECG ROUTINE ECG W/LEAST 12 LDS W/I&R Osvaldo Travis PA-C [address] [place] [address] [facility] [address] [place] [address] Referral ID Status Reason Start Date Expiration Date Visits Requested Visits Authorized [id number] Authorized Auto-Generat ed Referral 05/18/2023 05/17/2024 1 1 [facility] for referral (narrative)* Diagnostic Procedure Only (Routine) - Closed Specialty Diagnoses / Procedures Referred By Contac t Referred To Contact XR IMAGING Diagnoses Acute hip pain, right Procedures XR HIP GENERAL 3V PELV/AP/LAT RIGHT RADEX HIP UNILATERAL WITH PELVIS 2-3 VIEWS Jarvis Nicole MD [address] [place] [address] Xr Imaging [id number] Referral ID Status Reason Start Date Expiration Date V isits Requested Visits Authorized [id number] Closed Auto-Generate d Referral 07/23/2023 08/21/2024 1 1 [facility] for referral (narrative)* Outpatient Procedure (Routine) - Pending Review Specialty Diagnoses / Procedures Referred By Contac t Referred To Contact [facility] [place] Diagnoses SOB (shortness of breath) Bilateral leg edema Weight increase Procedures ECG COMPLETE ECG ROUTINE ECG W/LEAST 12 LDS W/I&R Osvaldo Travis PA-C [address] [place] [address] [id number] [place] [address] Referral ID Status Reason Start Date Expiration Date Visits Requested Visits Authorized [id number] Pending Review Auto-Generat ed Referral 02/04/2024 02/03/2025 1 1 [facility] for referral (narrative)* Outpatient Procedure (Routine) - Pending Review Specialty Diagnoses / Procedures Referred By Contac t Referred To Contact [facility] [place] Diagnoses Varicose veins of both lower extremities with inflammation Procedures US VENOUS INCOMPETENCY JABARI VAS LAB DUP-SCAN XTR VEINS COMPLETE BILATERAL STUDY Osvaldo Travis PA-C [address] [place] [address] [id number] [place] [address] Referral ID Status Reason Start Date Expiration Date Visits Requested Visits Authorized [id number] Pending Review Auto-Generat ed Referral 02/28/2024 02/27/2025 1 1 * Consult, Test, Treat (Routine) - Authorized Specialty Diagnoses / Procedures Referred By Contac t Referred To Contact Diagnoses CJ (obstructive sleep apnea) Hypersomnolence Procedures CONSULT TO SLEEP MEDICINE - ADULT OFFICE/OUTPATIENT [facility] 60 MINUTES Osvaldo Travis PA-C [address] [place] [address] Referral ID Status Reason Start Date Expiration Date Visits Requested Visits Authorized [id number] Authorized PCP Requested Referral 02/28/2024 02/27/2025 1 1 * Outpatient Procedure (Routine) - Authorized Specialty Diagnoses / Procedures Referred By Contac t Referred To Contact [facility] [place] Diagnoses Bilateral leg edema SOB (shortness of breath) Weight gain Procedures ECHO ECHO TTHRC R-T 2D W/WOM-MODE COMPL SPEC&COLR D Osvaldo Travis PA-C [address] [place] [address] [facility] [place] [address] [place] [address] Referral ID Status Reason Start Date Expiration Date Visits Requested Visits Authorized [id number] Authorized Auto-Generat ed Referral 02/28/2024 02/27/2025 1 1 [facility] for referral (narrative)* Diagnostic Procedure Only (Routine) - Closed Specialty Diagnoses / Procedures Referred By Contac t Referred To Contact XR IMAGING Diagnoses Acute hip pain, right Procedures XR HIP GENERAL 3V PELV/AP/LAT RIGHT RADEX HIP UNILATERAL WITH PELVIS 2-3 VIEWS Jarvis Nicole MD [address] [place] [address] [place] [address] Referral ID Status Reason Start Date Expiration Date V isits Requested Visits Authorized [id number] Closed Auto-Generate d Referral 07/23/2023 08/21/2024 1 1 [facility] for referral (narrative)* Diagnostic Procedure Only (Urgent) - Closed Specialty Diagnoses / Procedures Referred By Contac t Referred To Contact XR IMAGING Diagnoses Acute left ankle pain Procedures XR ANKLE GENERAL 3V AP/LAT/OBL LEFT RADEX ANKLE COMPLETE MINIMUM 3 VIEWS Denisha Shepard APRN.JIG GRINDER [address] [place] [address] [place] [address] Referral ID Status Reason Start Date Expiration Date V isits Requested Visits Authorized [id number] Closed Auto-Generate d Referral 02/16/2023 03/17/2024 1 1 [facility] for referral (narrative)* Diagnostic Procedure Only (Routine) - Closed Specialty Diagnoses / Procedures Referred By Contac t Referred To Contact XR IMAGING Diagnoses Rib pain Procedures XR RIBS/CHEST 3V AP RIB/OBLS/CXR RT X-RAY RIBS, CHEST 3+ VW Jeff Virgen MD [address] [place] [address] [place] [address] Referral ID Status Reason Start Date Expiration Date V isits Requested Visits Authorized [id number] Closed Auto-Generate d Referral 05/25/2021 09/16/2021 99 99 [facility] for visit Narrative* Diagnostic Procedure Only (Routine) - Closed Specialty Diagnoses / Procedures Referred By Contac t Referred To Contact XR IMAGING Diagnoses Acute hip pain, right Procedures XR HIP GENERAL 3V PELV/AP/LAT RIGHT RADEX HIP UNILATERAL WITH PELVIS 2-3 VIEWS Jarvis Nicole MD [address] [place] [address] [place] [address] Referral ID Status Reason Start Date Expiration Date V isits Requested Visits Authorized [id number] Closed Auto-Generate d Referral 07/23/2023 08/21/2024 1 1 [facility] for visit Narrative* Diagnostic Procedure Only (Urgent) - Closed Specialty Diagnoses / Procedures Referred By Contac t Referred To Contact XR IMAGING Diagnoses Acute left ankle pain Procedures XR ANKLE GENERAL 3V AP/LAT/OBL LEFT RADEX ANKLE COMPLETE MINIMUM 3 VIEWS Denisha Shepard APRN.JIG GRINDER [address] [place] [address] [place] [address] Referral ID Status Reason Start Date Expiration Date V isits Requested Visits Authorized [id number] Closed Auto-Generate d Referral 02/16/2023 03/17/2024 1 1 [facility] Diagnostic Procedure Only (Routine) - Closed Specialty Diagnoses / Procedures Referred By Contac t Referred To Contact XR IMAGING Diagnoses Rib pain Procedures XR RIBS/CHEST 3V AP RIB/OBLS/CXR RT X-RAY RIBS, CHEST 3+ VW Jeff Virgen MD [address] [place] [address] [place] [address] Referral ID Status Reason Start Date Expiration Date V isits Requested Visits Authorized [id number] Closed Auto-Generate d Referral 05/25/2021 09/16/2021 99 99 [facility] Advance Directives Documents on File Type Date 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) Advance Directive(s) 03/14/2021 10:51 AM Documents on File Type Date 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) Advance Directive(s) 03/14/2021 10:51 AM Documents on File Type Date 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) 03/14/2021 10:51 AM Documents on File Type Date 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) 03/14/2021 10:51 AM Reason for Referral Specialty Diagnoses / Procedures Referred By Contac t Referred To Contact Orthopedics Diagnoses Strain of calf muscle, right, initial encounter Procedures CONSULT TO ORTHOPAEDICS OFFICE/OUTPATIENT [facility] 60-74 MINUTES Saad Park APRN.J[employer]INDER [address] [place] [address] Referral ID Status Reason Start Date Expiration Date Visits Requested Visits Authorized [id number] Pending Review PCP Requested Referral 01/27/2022 01/27/2023 1 1 Specialty Diagnoses / Procedures Referred By Contac t Referred To Contact [facility] Diagnoses Gastrocnemius tear, right, initial encounter Procedures CONSULT TO PHYSICAL THERAPY PHYSICAL THERAPY EVALUATION HIGH COMPLEX 45 MINS Papito Castano, Aisha, DO [address] [place] [address] [facility] [address] [place] [address] Referral ID Status Reason Start Date Expiration Date Visits Requested Visits Authorized [id number] Pending Review Auto-Generat ed Referral 02/03/2022 02/03/2023 1 1 Specialty Diagnoses / Procedures Referred By Contac t Referred To Contact General Surgery Diagnoses Skin mass Procedures CONSULT TO GENERAL SURGERY OFFICE/OUTPATIENT [facility] 60-74 MINUTES Jeff Virgen MD [address] [place] [address] Referral ID Status Reason Start Date Expiration Date Visits Requested Visits Authorized [id number] Pending Review PCP Requested Referral 01/19/2023 01/19/2024 1 1 Specialty Diagnoses / Procedures Referred By Contac t Referred To Contact Urology Diagnoses Benign prostatic hyperplasia with lower urinary tract symptoms, symptom details unspecified Urinary retention Procedures CONSULT TO UROLOGY Jeff Virgen MD [address] [place] [address] Referral ID Status Reason Start Date Expiration Date Visits Requested Visits Authorized [id number] Ref Not Required PCP Requested Referral 03/02/2023 03/01/2024 1 1 Specialty Diagnoses / Procedures Referred By Contac t Referred To Contact Ophthalmology Diagnoses Type 2 diabetes mellitus with microalbuminuria, with long-term current use of insulin (HCC) Procedures CONSULT TO OPHTHALMOLOGY OFFICE/OUTPATIENT [facility] 60-74 MINUTES Jeff Virgen MD [address] [place] [address] Referral ID Status Reason Start Date Expiration Date Visits Requested Visits Authorized [id number] Pending Review PCP Requested Referral 06/06/2023 06/05/2024 1 1 Specialty Diagnoses / Procedures Referred By Contac t Referred To Contact [facility] Diagnoses Venous incompetence Lymphedema of left leg Varicose veins of both legs with edema Procedures CONSULT TO LYMPHEDEMA THERAPY OFFICE/OUTPATIENT [facility] MDM 60 MINUTES Osvaldo Travis PA-C [address] [place] [address] [facility] [place] [address] [place] [address] Referral ID Status Reason Start Date Expiration Date Visits Requested Visits Authorized [id number] Authorized Auto-Generat ed Referral 03/21/2024 03/21/2025 1 [...] or prosecute any alcohol or drug abuse patient.[facility] the event this information is protected by the Federal Confidentiality of Alcohol and Drug Abuse Patient Records regulations: The Federal rules restrict any use of the information to criminally investigate or prosecute any alcohol or drug abuse patient.[facility] HealthcareIn the event this information is protected by the Federal Confidentiality of Alcohol and Drug Abuse Patient Records regulations: The Federal rules restrict any use of the information to criminally investigate or prosecute any alcohol or drug abuse patient.[facility] HealthcareIn the event this information is protected by the Federal Confidentiality of Alcohol and Drug Abuse Patient Records regulations: The Federal rules restrict any use of the information to criminally investigate or prosecute any alcohol or drug abuse patient.[facility] HealthcareIn the event this information is protected by the Federal Confidentiality of Alcohol and Drug Abuse Patient Records regulations: The Federal rules restrict any use of the information to criminally investigate or prosecute any alcohol or drug abuse patient.[facility] HealthcareIn the event this information is protected by the Federal Confidentiality of Alcohol and Drug Abuse Patient Records regulations: The Federal rules restrict any use of the information to criminally investigate or prosecute any alcohol or drug abuse patient.[facility] HealthcareIn the event this information is protected by the Federal Confidentiality of Alcohol and Drug Abuse Patient Records regulations: The Federal rules restrict any use of the information to criminally investigate or prosecute any alcohol or drug abuse patient.[facility] HealthcareIn the event this information is protected by the Federal Confidentiality of Alcohol and Drug Abuse Patient Records regulations: The Federal rules restrict any use of the information to criminally investigate or prosecute any alcohol or drug abuse patient.[facility] HealthcareIn the event this information is protected by the Federal Confidentiality of Alcohol and Drug Abuse Patient Records regulations: The Federal rules restrict any use of the information to criminally investigate or prosecute any alcohol or drug abuse patient.[facility] HealthcareIn the event this information is protected by the Federal Confidentiality of Alcohol and Drug Abuse Patient Records regulations: The Federal rules restrict any use of the information to criminally investigate or prosecute any alcohol or drug abuse patient.[facility] HealthcareIn the event this information is protected by the Federal Confidentiality of Alcohol and Drug Abuse Patient Records regulations: The Federal rules restrict any use of the information to criminally investigate or prosecute any alcohol or drug abuse patient.[facility] HealthcareIn the event this information is protected by the Federal Confidentiality of Alcohol and Drug Abuse Patient Records regulations: The Federal rules restrict any use of the information to criminally investigate or prosecute any alcohol or drug abuse patient.[facility] HealthcareIn the event this information is protected by the Federal Confidentiality of Alcohol and Drug Abuse Patient Records regulations: The Federal rules restrict any use of the information to criminally investigate or prosecute any alcohol or drug abuse patient.[facility] HealthcareIn the event this information is protected by the Federal Confidentiality of Alcohol and Drug Abuse Patient Records regulations: The Federal rules restrict any use of the information to criminally investigate or prosecute any alcohol or drug abuse patient.[facility] HealthcareIn the event this information is protected by the Federal Confidentiality of Alcohol and Drug Abuse Patient Records regulations: The Federal rules restrict any use of the information to criminally investigate or prosecute any alcohol or drug abuse patient.[facility] HealthcareIn the event this information is protected by the Federal Confidentiality of Alcohol and Drug Abuse Patient Records regulations: The Federal rules restrict any use of the information to criminally investigate or prosecute any alcohol or drug abuse patient.[facility] HealthcareIn the event this information is protected by the Federal Confidentiality of Alcohol and Drug Abuse Patient Records regulations: The Federal rules restrict any use of the information to criminally investigate or prosecute any alcohol or drug abuse patient.[facility] HealthcareIn the event this information is protected by the Federal Confidentiality of Alcohol and Drug Abuse Patient Records regulations: The Federal rules restrict any use of the information to criminally investigate or prosecute any alcohol or drug abuse patient.[facility] HealthcareIn the event this information is protected by the Federal Confidentiality of Alcohol and Drug Abuse Patient Records regulations: The Federal rules restrict any use of the information to criminally investigate or prosecute any alcohol or drug abuse patient.[facility] HealthcareIn the event this information is protected by the Federal Confidentiality of Alcohol and Drug Abuse Patient Records regulations: The Federal rules restrict any use of the information to criminally investigate or prosecute any alcohol or drug abuse patient.[facility] HealthcareIn the event this information is protected by the Federal Confidentiality of Alcohol and Drug Abuse Patient Records regulations: The Federal rules restrict any use of the information to criminally investigate or prosecute any alcohol or drug abuse patient.[facility] HealthcareIn the event this information is protected by the Federal Confidentiality of Alcohol and Drug Abuse Patient Records regulations: The Federal rules restrict any use of the information to criminally investigate or prosecute any alcohol or drug abuse patient.[facility] HealthcareIn the event this information is protected by the Federal Confidentiality of Alcohol and Drug Abuse Patient Records regulations: The Federal rules restrict any use of the information to criminally investigate or prosecute any alcohol or drug abuse patient.[facility] HealthcareIn the event this information is protected by the Federal Confidentiality of Alcohol and Drug Abuse Patient Records regulations: The Federal rules restrict any use of the information to criminally investigate or prosecute any alcohol or drug abuse patient.[facility] HealthcareIn the event this information is protected by the Federal Confidentiality of Alcohol and Drug Abuse Patient Records regulations: The Federal rules restrict any use of the information to criminally investigate or prosecute any alcohol or drug abuse patient.[facility] HealthcareIn the event this information is protected by the Federal Confidentiality of Alcohol and Drug Abuse Patient Records regulations: The Federal rules restrict any use of the information to criminally investigate or prosecute any alcohol or drug abuse patient.[facility] HealthcareIn the event this information is protected by the Federal Confidentiality of Alcohol and Drug Abuse Patient Records regulations: The Federal rules restrict any use of the information to criminally investigate or prosecute any alcohol or drug abuse patient.[facility] HealthcareIn the event this information is protected by the Federal Confidentiality of Alcohol and Drug Abuse Patient Records regulations: The Federal rules restrict any use of the information to criminally investigate or prosecute any alcohol or drug abuse patient.[facility] HealthcareIn the event this information is protected by the Federal Confidentiality of Alcohol and Drug Abuse Patient Records regulations: The Federal rules restrict any use of the information to criminally investigate or prosecute any alcohol or drug abuse patient.[facility] HealthcareIn the event this information is protected by the Federal Confidentiality of Alcohol and Drug Abuse Patient Records regulations: The Federal rules restrict any use of the information to criminally investigate or prosecute any alcohol or drug abuse patient.[facility] HealthcareIn the event this information is protected by the Federal Confidentiality of Alcohol and Drug Abuse Patient Records regulations: The Federal rules restrict any use of the information to criminally investigate or prosecute any alcohol or drug abuse patient.[facility] HealthcareIn the event this information is protected by the Federal Confidentiality of Alcohol and Drug Abuse Patient Records regulations: The Federal rules restrict any use of the information to criminally investigate or prosecute any alcohol or drug abuse patient.[facility] HealthcareIn the event this information is protected by the Federal Confidentiality of Alcohol and Drug Abuse Patient Records regulations: The Federal rules restrict any use of the information to criminally investigate or prosecute any alcohol or drug abuse patient.[facility] HealthcareIn the event this information is protected by the Federal Confidentiality of Alcohol and Drug Abuse Patient Records regulations: The Federal rules restrict any use of the information to criminally investigate or prosecute any alcohol or drug abuse patient.[facility] HealthcareIn the event this information is protected by the Federal Confidentiality of Alcohol and Drug Abuse Patient Records regulations: The Federal rules restrict any use of the information to criminally investigate or prosecute any alcohol or drug abuse patient.[facility] HealthcareIn the event this information is protected by the Federal Confidentiality of Alcohol and Drug Abuse Patient Records regulations: The Federal rules restrict any use of the information to criminally investigate or prosecute any alcohol or drug abuse patient.[facility] HealthcareIn the event this information is protected by the Federal Confidentiality of Alcohol and Drug Abuse Patient Records regulations: The Federal rules restrict any use of the information to criminally investigate or prosecute any alcohol or drug abuse patient.[facility] HealthcareIn the event this information is protected by the Federal Confidentiality of Alcohol and Drug Abuse Patient Records regulations: The Federal rules restrict any use of the information to criminally investigate or prosecute any alcohol or drug abuse patient.[facility] HealthcareIn the event this information is protected by the Federal Confidentiality of Alcohol and Drug Abuse Patient Records regulations: The Federal rules restrict any use of the information to criminally investigate or prosecute any alcohol or drug abuse patient.[facility] HealthcareIn the event this information is protected by the Federal Confidentiality of Alcohol and Drug Abuse Patient Records regulations: The Federal rules restrict any use of the information to criminally investigate or prosecute any alcohol or drug abuse patient.[facility] HealthcareIn the event this information is protected by the Federal Confidentiality of Alcohol and Drug Abuse Patient Records regulations: The Federal rules restrict any use of the information to criminally investigate or prosecute any alcohol or drug abuse patient.[facility] HealthcareIn the event this information is protected by the Federal Confidentiality of Alcohol and Drug Abuse Patient Records regulations: The Federal rules restrict any use of the information to criminally investigate or prosecute any alcohol or drug abuse patient.[facility] HealthcareIn the event this information is protected by the Federal Confidentiality of Alcohol and Drug Abuse Patient Records regulations: The Federal rules restrict any use of the information to criminally investigate or prosecute any alcohol or drug abuse patient.[facility] HealthcareIn the event this information is protected by the Federal Confidentiality of Alcohol and Drug Abuse Patient Records regulations: The Federal rules restrict any use of the information to criminally investigate or prosecute any alcohol or drug abuse patient.[facility] HealthcareIn the event this information is protected by the Federal Confidentiality of Alcohol and Drug Abuse Patient Records regulations: The Federal rules restrict any use of the information to criminally investigate or prosecute any alcohol or drug abuse patient.[facility] HealthcareIn the event this information is protected by the Federal Confidentiality of Alcohol and Drug Abuse Patient Records regulations: The Federal rules restrict any use of the information to criminally investigate or prosecute any alcohol or drug abuse patient.[facility] HealthcareIn the event this information is protected by the Federal Confidentiality of Alcohol and Drug Abuse Patient Records regulations: The Federal rules restrict any use of the information to criminally investigate or prosecute any alcohol or drug abuse patient.[facility] HealthcareIn the event this information is protected by the Federal Confidentiality of Alcohol and Drug Abuse Patient Records regulations: The Federal rules restrict any use of the information to criminally investigate or prosecute any alcohol or drug abuse patient.[facility] HealthcareIn the event this information is protected by the Federal Confidentiality of Alcohol and Drug Abuse Patient Records regulations: The Federal rules restrict any use of the information to criminally investigate or prosecute any alcohol or drug abuse patient.[facility] HealthcareIn the event this information is protected by the Federal Confidentiality of Alcohol and Drug Abuse Patient Records regulations: The Federal rules restrict any use of the information to criminally investigate or prosecute any alcohol or drug abuse patient.[facility] HealthcareIn the event this information is protected by the Federal Confidentiality of Alcohol and Drug Abuse Patient Records regulations: The Federal rules restrict any use of the information to criminally investigate or prosecute any alcohol or drug abuse patient.[facility]In the event this information is protected by the Federal Confidentiality of Alcohol and Drug Abuse Patient Records regulations: The Federal rules restrict any use of the information to criminally investigate or prosecute any alcohol or drug abuse patient.[facility]In the event this information is protected by the Federal Confidentiality of Alcohol and Drug Abuse Patient Records regulations: The Federal rules restrict any use of the information to criminally investigate or prosecute any alcohol or drug abuse patient.[facility]In the event this information is protected by the Federal Confidentiality of Alcohol and Drug Abuse Patient Records regulations: The Federal rules restrict any use of the information to criminally investigate or prosecute any alcohol or drug abuse patient.[facility] HealthcareIn the event this information is protected by the Federal Confidentiality of Alcohol and Drug Abuse Patient Records regulations: The Federal rules restrict any use of the information to criminally investigate or prosecute any alcohol or drug abuse patient.[facility] HealthcareIn the event this information is protected by the Federal Confidentiality of Alcohol and Drug Abuse Patient Records regulations: The Federal rules restrict any use of the information to criminally investigate or prosecute any alcohol or drug abuse patient.[facility] HealthcareIn the event this information is protected by the Federal Confidentiality of Alcohol and Drug Abuse Patient Records regulations: The Federal rules restrict any use of the information to criminally investigate or prosecute any alcohol or drug abuse patient.[facility] HealthcareIn the event this information is protected by the Federal Confidentiality of Alcohol and Drug Abuse Patient Records regulations: The Federal rules restrict any use of the information to criminally investigate or prosecute any alcohol or drug abuse patient.[facility] HealthcareIn the event this information is protected by the Federal Confidentiality of Alcohol and Drug Abuse Patient Records regulations: The Federal rules restrict any use of the information to criminally investigate or prosecute any alcohol or drug abuse patient.[facility] HealthcareIn the event this information is protected by the Federal Confidentiality of Alcohol and Drug Abuse Patient Records regulations: The Federal rules restrict any use of the information to criminally investigate or prosecute any alcohol or drug abuse patient.[facility] HealthcareIn the event this information is protected by the Federal Confidentiality of Alcohol and Drug Abuse Patient Records regulations: The Federal rules restrict any use of the information to criminally investigate or prosecute any alcohol or drug abuse patient.[facility] HealthcareIn the event this information is protected by the Federal Confidentiality of Alcohol and Drug Abuse Patient Records regulations: The Federal rules restrict any use of the information to criminally investigate or prosecute any alcohol or drug abuse patient.[facility] HealthcareIn the event this information is protected by the Federal Confidentiality of Alcohol and Drug Abuse Patient Records regulations: The Federal rules restrict any use of the information to criminally investigate or prosecute any alcohol or drug abuse patient.[facility] HealthcareIn the event this information is protected by the Federal Confidentiality of Alcohol and Drug Abuse Patient Records regulations: The Federal rules restrict any use of the information to criminally investigate or prosecute any alcohol or drug abuse patient.[facility] HealthcareIn the event this information is protected by the Federal Confidentiality of Alcohol and Drug Abuse Patient Records regulations: The Federal rules restrict any use of the information to criminally investigate or prosecute any alcohol or drug abuse patient.[facility] HealthcareIn the event this information is protected by the Federal Confidentiality of Alcohol and Drug Abuse Patient Records regulations: The Federal rules restrict any use of the information to criminally investigate or prosecute any alcohol or drug abuse patient.[facility] HealthcareIn the event this information is protected by the Federal Confidentiality of Alcohol and Drug Abuse Patient Records regulations: The Federal rules restrict any use of the information to criminally investigate or prosecute any alcohol or drug abuse patient.[facility] HealthcareIn the event this information is protected by the Federal Confidentiality of Alcohol and Drug Abuse Patient Records regulations: The Federal rules restrict any use of the information to criminally investigate or prosecute any alcohol or drug abuse patient.[facility]red HealthcareIn the event this information is protected by the Federal Confidentiality of Alcohol and Drug Abuse Patient Records regulations: The Federal rules restrict any use of the information to criminally investigate or prosecute any alcohol or drug abuse patient.[facility] HealthcareIn the event this information is protected by the Federal Confidentiality of Alcohol and Drug Abuse Patient Records regulations: The Federal rules restrict any use of the information to criminally investigate or prosecute any alcohol or drug abuse patient.[facility] HealthcareIn the event this information is protected by the Federal Confidentiality of Alcohol and Drug Abuse Patient Records regulations: The Federal rules restrict any use of the information to criminally investigate or prosecute any alcohol or drug abuse patient.[facility] HealthcareIn the event this information is protected by the Federal Confidentiality of Alcohol and Drug Abuse Patient Records regulations: The Federal rules restrict any use of the information to criminally investigate or prosecute any alcohol or drug abuse patient.[facility] HealthcareIn the event this information is protected by the Federal Confidentiality of Alcohol and Drug Abuse Patient Records regulations: The Federal rules restrict any use of the information to criminally investigate or prosecute any alcohol or drug abuse patient.[facility] HealthcareIn the event this information is protected by the Federal Confidentiality of Alcohol and Drug Abuse Patient Records regulations: The Federal rules restrict any use of the information to criminally investigate or prosecute any alcohol or drug abuse patient.[facility] HealthcareIn the event this information is protected by the Federal Confidentiality of Alcohol and Drug Abuse Patient Records regulations: The Federal rules restrict any use of the information to criminally investigate or prosecute any alcohol or drug abuse patient.[facility] HealthcareIn the event this information is protected by the Federal Confidentiality of Alcohol and Drug Abuse Patient Records regulations: The Federal rules restrict any use of the information to criminally investigate or prosecute any alcohol or drug abuse patient.[facility] HealthcareIn the event this information is protected by the Federal Confidentiality of Alcohol and Drug Abuse Patient Records regulations: The Federal rules restrict any use of the information to criminally investigate or prosecute any alcohol or drug abuse patient.[facility] HealthcareIn the event this information is protected by the Federal Confidentiality of Alcohol and Drug Abuse Patient Records regulations: The Federal rules restrict any use of the information to criminally investigate or prosecute any alcohol or drug abuse patient.[facility] HealthcareIn the event this information is protected by the Federal Confidentiality of Alcohol and Drug Abuse Patient Records regulations: The Federal rules restrict any use of the information to criminally investigate or prosecute any alcohol or drug abuse patient.[facility] HealthcareIn the event this information is protected by the Federal Confidentiality of Alcohol and Drug Abuse Patient Records regulations: The Federal rules restrict any use of the information to criminally investigate or prosecute any alcohol or drug abuse patient.[facility] HealthcareIn the event this information is protected by the Federal Confidentiality of Alcohol and Drug Abuse Patient Records regulations: The Federal rules restrict any use of the information to criminally investigate or prosecute any alcohol or drug abuse patient.[facility] HealthcareIn the event this information is protected by the Federal Confidentiality of Alcohol and Drug Abuse Patient Records regulations: The Federal rules restrict any use of the information to criminally investigate or prosecute any alcohol or drug abuse patient.[facility] HealthcareIn the event this information is protected by the Federal Confidentiality of Alcohol and Drug Abuse Patient Records regulations: The Federal rules restrict any use of the information to criminally investigate or prosecute any alcohol or drug abuse patient.[facility] HealthcareIn the event this information is protected by the Federal Confidentiality of Alcohol and Drug Abuse Patient Records regulations: The Federal rules restrict any use of the information to criminally investigate or prosecute any alcohol or drug abuse patient.[facility] HealthcareIn the event this information is protected by the Federal Confidentiality of Alcohol and Drug Abuse Patient Records regulations: The Federal rules restrict any use of the information to criminally investigate or prosecute any alcohol or drug abuse patient.[facility] HealthcareIn the event this information is protected by the Federal Confidentiality of Alcohol and Drug Abuse Patient Records regulations: The Federal rules restrict any use of the information to criminally investigate or prosecute any alcohol or drug abuse patient.[facility] HealthcareIn the event this information is protected by the Federal Confidentiality of Alcohol and Drug Abuse Patient Records regulations: The Federal rules restrict any use of the information to criminally investigate or prosecute any alcohol or drug abuse patient.[facility] HealthcareIn the event this information is protected by the Federal Confidentiality of Alcohol and Drug Abuse Patient Records regulations: The Federal rules restrict any use of the information to criminally investigate or prosecute any alcohol or drug abuse patient.[facility] HealthcareIn the event this information is protected by the Federal Confidentiality of Alcohol and Drug Abuse Patient Records regulations: The Federal rules restrict any use of the information to criminally investigate or prosecute any alcohol or drug abuse patient.[facility] HealthcareIn the event this information is protected by the Federal Confidentiality of Alcohol and Drug Abuse Patient Records regulations: The Federal rules restrict any use of the information to criminally investigate or prosecute any alcohol or drug abuse patient.[facility] HealthcareIn the event this information is protected by the Federal Confidentiality of Alcohol and Drug Abuse Patient Records regulations: The Federal rules restrict any use of the information to criminally investigate or prosecute any alcohol or drug abuse patient.[facility] HealthcareIn the event this information is protected by the Federal Confidentiality of Alcohol and Drug Abuse Patient Records regulations: The Federal rules restrict any use of the information to criminally investigate or prosecute any alcohol or drug abuse patient.[facility] HealthcareIn the event this information is protected by the Federal Confidentiality of Alcohol and Drug Abuse Patient Records regulations: The Federal rules restrict any use of the information to criminally investigate or prosecute any alcohol or drug abuse patient.[facility] HealthcareIn the event this information is protected by the Federal Confidentiality of Alcohol and Drug Abuse Patient Records regulations: The Federal rules restrict any use of the information to criminally investigate or prosecute any alcohol or drug abuse patient.[facility] HealthcareIn the event this information is protected by the Federal Confidentiality of Alcohol and Drug Abuse Patient Records regulations: The Federal rules restrict any use of the information to criminally investigate or prosecute any alcohol or drug abuse patient.[facility] HealthcareIn the event this information is protected by the Federal Confidentiality of Alcohol and Drug Abuse Patient Records regulations: The Federal rules restrict any use of the information to criminally investigate or prosecute any alcohol or drug abuse patient.[facility] HealthcareIn the event this information is protected by the Federal Confidentiality of Alcohol and Drug Abuse Patient Records regulations: The Federal rules restrict any use of the information to criminally investigate or prosecute any alcohol or drug abuse patient.[facility] HealthcareIn the event this information is protected by the Federal Confidentiality of Alcohol and Drug Abuse Patient Records regulations: The Federal rules restrict any use of the information to criminally investigate or prosecute any alcohol or drug abuse patient.[facility] HealthcareIn the event this information is protected by the Federal Confidentiality of Alcohol and Drug Abuse Patient Records regulations: The Federal rules restrict any use of the information to criminally investigate or prosecute any alcohol or drug abuse patient.[facility] HealthcareIn the event this information is protected by the Federal Confidentiality of Alcohol and Drug Abuse Patient Records regulations: The Federal rules restrict any use of the information to criminally investigate or prosecute any alcohol or drug abuse patient.[facility] HealthcareIn the event this information is protected by the Federal Confidentiality of Alcohol and Drug Abuse Patient Records regulations: The Federal rules restrict any use of the information to criminally investigate or prosecute any alcohol or drug abuse patient.[facility] HealthcareIn the event this information is protected by the Federal Confidentiality of Alcohol and Drug Abuse Patient Records regulations: The Federal rules restrict any use of the information to criminally investigate or prosecute any alcohol or drug abuse patient.[facility] HealthcareIn the event this information is protected by the Federal Confidentiality of Alcohol and Drug Abuse Patient Records regulations: The Federal rules restrict any use of the information to criminally investigate or prosecute any alcohol or drug abuse patient.[facility] HealthcareIn the event this information is protected by the Federal Confidentiality of Alcohol and Drug Abuse Patient Records regulations: The Federal rules restrict any use of the information to criminally investigate or prosecute any alcohol or drug abuse patient.[facility] HealthcareIn the event this information is protected by the Federal Confidentiality of Alcohol and Drug Abuse Patient Records regulations: The Federal rules restrict any use of the information to criminally investigate or prosecute any alcohol or drug abuse patient.[facility] HealthcareIn the event this information is protected by the Federal Confidentiality of Alcohol and Drug Abuse Patient Records regulations: The Federal rules restrict any use of the information to criminally investigate or prosecute any alcohol or drug abuse patient.[facility] HealthcareIn the event this information is protected by the Federal Confidentiality of Alcohol and Drug Abuse Patient Records regulations: The Federal rules restrict any use of the information to criminally investigate or prosecute any alcohol or drug abuse patient.[facility] HealthcareIn the event this information is protected by the Federal Confidentiality of Alcohol and Drug Abuse Patient Records regulations: The Federal rules restrict any use of the information to criminally investigate or prosecute any alcohol or drug abuse patient.[facility] HealthcareIn the event this information is protected by the Federal Confidentiality of Alcohol and Drug Abuse Patient Records regulations: The Federal rules restrict any use of the information to criminally investigate or prosecute any alcohol or drug abuse patient.[facility] HealthcareIn the event this information is protected by the Federal Confidentiality of Alcohol and Drug Abuse Patient Records regulations: The Federal rules restrict any use of the information to criminally investigate or prosecute any alcohol or drug abuse patient.[facility] HealthcareIn the event this information is protected by the Federal Confidentiality of Alcohol and Drug Abuse Patient Records regulations: The Federal rules restrict any use of the information to criminally investigate or prosecute any alcohol or drug abuse patient.[facility] HealthcareIn the event this information is protected by the Federal Confidentiality of Alcohol and Drug Abuse Patient Records regulations: The Federal rules restrict any use of the information to criminally investigate or prosecute any alcohol or drug abuse patient.[facility] HealthcareIn the event this information is protected by the Federal Confidentiality of Alcohol and Drug Abuse Patient Records regulations: The Federal rules restrict any use of the information to criminally investigate or prosecute any alcohol or drug abuse patient.[facility] HealthcareIn the event this information is protected by the Federal Confidentiality of Alcohol and Drug Abuse Patient Records regulations: The Federal rules restrict any use of the information to criminally investigate or prosecute any alcohol or drug abuse patient.[facility] Reason for Visit (unrecogniz ed section and content) Reason Onset Date Comments Refill Request 12/12/2021 Reason Comments Forms Jardiance PAP Reason Comments Medication Problem Reason Onset Date Comments Refill Request 12/29/2021 Reason Comments Diabetes Reason Onset Date Comments Refill Request 01/12/2022 Reason Comments right calf pain x 2 hours-pulled joe ething getting on ancillary specialist Reason 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 Refills Reason Onset Date [...] Onset Date Comments Transition Of Care 11/22/2022 [facility] 3/7-37 d x: chest pain Reason Comments [...] CONSULT TO SLEEP MEDICINE - ADULT OFFICE/OUTPATIENT [facility] 60 MINUTES Osvaldo Travis PA-C [address] [place] [address] Referral ID Status Reason Start Date Expiration Date V isits Requested Visits Authorized [id number] Closed PCP Requested Referral 02/28/2024 02/27/2025 1 1 Reason Onset Date Comments Refill Request 07/09/2024 Care Teams (unrecognized sec tion and content) Manager Human Resources Relationship Specialty Start Date End Date Jeff Virgen MD [address] [place], [place] [address] PCP - General Family Practice 01/10/18 Asad Rothman, [facility] [address] [place], [place] [id number] Pharmacist Pharmacy 05/24/20 Kaitlyn Hernández, [facility] [address] [place], [place] [address] Pharmacist Pharmacy 03/31/21 Manager Human Resources Relationship Specialty Start Date End Date Jeff Virgen MD [address] [place] [address] PCP - General Family Practice 01/10/18 [facility] [address] [place] [address] Pharmacist Pharmacy 05/24/20 [facility] [address] [place] [address] Pharmacist Pharmacy 03/31/21 Manager Human Resources Relationship Specialty Start Date End Date Jeff Virgen MD [address] [facility] [place] [address] PCP - General Family Practice 01/10/18 [facility] [address] [place] [address] Pharmacist Pharmacy 05/24/20 [facility] [address] [place] [address] Pharmacist Pharmacy 03/31/21 Manager Human Resources Relationship Specialty Start Date End Date Jeff Virgen MD [address] [facility] [place] [address] PCP - General Family Practice 01/10/18 [facility] [address] [place] [address] Pharmacist Pharmacy 05/24/20 [facility] [address] [facility] [place] [address] Pharmacist Pharmacy 03/31/21 Manager Human Resources Relationship Specialty Start Date End Date Jeff Virgen MD [address] [facility] [place] [address] PCP - General Family Practice 01/10/18 [facility] [address] [place] [address] Pharmacist Pharmacy 05/24/20 Kaitlyn Hernández, [facility] [address] [facility] [place] [address] Pharmacist Pharmacy 03/31/21 Manager Human Resources Relationship Specialty Start Date End Date Jeff Virgen MD [address] [facility] [place] [address] PCP - General Family Practice 01/10/18 [facility] [address] [facility] [place] [address] Pharmacist Pharmacy 05/24/20 Kaitlyn Hernández, [facility] [address] [facility] [place] [address] Pharmacist Pharmacy 03/31/21 Manager Human Resources Relationship Specialty Start Date End Date Jeff Virgen MD [address] [facility] [place] [address] PCP - General Family Practice 01/10/18 [facility] [address] [facility] [place] [address] Pharmacist Pharmacy 05/24/20 [facility] [address] [facility] [place] [address] Pharmacist Pharmacy 03/31/21 Manager Human Resources Relationship Specialty Start Date End Date Jeff Virgen MD [address] [facility] [place] [address] PCP - General Family Practice 01/10/18 Asad Rothman, [facility] [address] [facility] [place] [address] Pharmacist Pharmacy 05/24/20 [facility] [address] [facility] [place] [address] Pharmacist Pharmacy 03/31/21 Manager Human Resources Relationship Specialty Start Date End Date Jeff Virgen MD [address] [facility] [place] [address] PCP - General Family Practice 01/10/18 [facility] [address] [place] [address] Pharmacist Pharmacy 05/24/20 [facility] [address] [place] [address] Pharmacist Pharmacy 03/31/21 Manager Human Resources Relationship Specialty Start Date End Date Jeff Virgen MD [address] [place] [address] PCP - General Family Practice 01/10/18 [facility] [address] [place] [address] Pharmacist Pharmacy 05/24/20 [facility] [address] [facility] [place] [address] Pharmacist Pharmacy 03/31/21 Manager Human Resources Relationship Specialty Start Date End Date Jeff Virgen MD [address] [facility] [place] [address] PCP - General Family Practice 01/10/18 [facility] [address] [place] [address] Pharmacist Pharmacy 05/24/20 [facility] [address] [place] [address] Pharmacist Pharmacy 03/31/21 Manager Human Resources Relationship Specialty Start Date End Date Jeff Virgen MD [address] [facility] [place] [address] PCP - General Family Practice 01/10/18 Faizandarcie Asad, [facility] [address] [place] [address] Pharmacist Pharmacy 05/24/20 [place], [facility]lynSc[facility] [address] [place] [address] Pharmacist Pharmacy 03/31/21 Manager Human Resources Relationship Specialty Start Date End Date Jeff Virgen MD [address] [facility] [place] [address] PCP - General Family Practice 01/10/18 Stephan [facility]ocjSc[facility] [address] [place] [address] Pharmacist Pharmacy 05/24/20 [facility] [address] [place] [address] Pharmacist Pharmacy 03/31/21 Manager Human Resources Relationship Specialty Start Date End Date Jeff Virgen MD [address] [facility] [place] [address] PCP - General Family Practice 01/10/18 FaizanGregorio spraguecj, [facility] [address] [place] [address] Pharmacist Pharmacy 05/24/20 Kaitlyn Hernández, [facility] [address] [place] [address] Pharmacist Pharmacy 03/31/21 Manager Human Resources Relationship Specialty Start Date End Date Jeff Virgen MD [address] [facility] [place] [address] PCP - General Family Medicine 01/10/18 Stephan Gregoriocj, [facility] [address] [facility] [place] [address] Pharmacist Pharmacy 05/24/20 Jaqueline Hernándezily, [facility] [address] [facility] [place] [address] Pharmacist Pharmacy 03/31/21 Manager Human Resources Relationship Specialty Start Date End Date Jeff Virgen MD [address] [facility] [place] [address] PCP - General Family Medicine 01/10/18 Asad Rothman, [facility] [address] [facility] [place] [address] Pharmacist Pharmacy 05/24/20 Kaitlyn Hernández, [facility] [address] [facility] [place] [address] Pharmacist Pharmacy 03/31/21 Manager Human Resources Relationship Specialty Start Date End Date Jeff Virgen MD [address] [facility] [place] [address] PCP - General Family Medicine 01/10/18 Asad Rothman, [facility] [address] [place] [address] Pharmacist Pharmacy 05/24/20 Kaitlyn Hernández, [facility] [address] [facility] [place] [address] Pharmacist Pharmacy 03/31/21 Manager Human Resources Relationship Specialty Start Date End Date Jeff Virgen MD [address] [facility] [place] [address] PCP - General Family Medicine 01/10/18 Asad Rothman, [facility] [address] [facility] [place] [address] Pharmacist Pharmacy 05/24/20 Kaitlyn Hernández, [facility] [address] [facility] [place] [address] Pharmacist Pharmacy 03/31/21 Manager Human Resources Relationship Specialty Start Date End Date Jeff Virgen MD [address] [place] [address] PCP - General Family Medicine 01/10/18 [facility] [address] [place] [address] Pharmacist Pharmacy 05/24/20 [facility]Sc[facility] [address] [place] [address] Pharmacist Pharmacy 03/31/21 Manager Human Resources Relationship Specialty Start Date End Date Jeff Virgen MD [address] [place] [address] PCP - General Family Medicine 01/10/18 [facility] [address] [place] [address] Pharmacist Pharmacy 05/24/20 [facility]Sc[facility] [address] [place] [address] Pharmacist Pharmacy 03/31/21 Manager Human Resources Relationship Specialty Start Date End Date Jeff Virgen MD [address] [place] [address] PCP - General Family Medicine 01/10/18 [facility] [address] [place] [address] Pharmacist Pharmacy 05/24/20 Kaitlyn Hernández, [facility] [address] [place] [address] Pharmacist Pharmacy 03/31/21 Manager Human Resources Relationship Specialty Start Date End Date Jeff Virgen MD [address] [place] [address] PCP - General Family Medicine 01/10/18 Asad Rothman, [facility] [address] [place] [address] Pharmacist Pharmacy 05/24/20 [facility] [address] [place] [address] Pharmacist Pharmacy 03/31/21 Manager Human Resources Relationship Specialty Start Date End Date Jeff Virgen MD [address] [place] [address] PCP - General Family Medicine 01/10/18 [facility] [address] [place] [address] Pharmacist Pharmacy 05/24/20 Kaitlyn Hernández, [facility] [address] [place] [address] Pharmacist Pharmacy 03/31/21 Manager Human Resources Relationship Specialty Start Date End Date Jeff Virgen MD [address] [place] [address] PCP - General Family Medicine 01/10/18 Asad Rothman, Formerly [facility] [address] [place] [address] Pharmacist Pharmacy 05/24/20 [facility]lyn [facility] [address] [place] [address] Pharmacist Pharmacy 03/31/21 Manager Human Resources Relationship Specialty Start Date End Date Jfef Virgen MD [address] [facility] [place] [address] PCP - General Family Medicine 01/10/18 Asad Rothman, Formerly [facility] [address] [place] [address] Pharmacist Pharmacy 05/24/20 Kaitlyn Hernández, Formerly [facility] [address] [place] [address] Pharmacist Pharmacy 03/31/21 Manager Human Resources Relationship Specialty Start Date End Date Jeff Virgen MD [address] [place] [address] PCP - General Family Medicine 01/10/18 [facility] [address] [facility] [place] [address] Pharmacist Pharmacy 05/24/20 Kaitlyn [facility] [address] [facility] [place] [address] Pharmacist Pharmacy 03/31/21 Manager Human Resources Relationship Specialty Start Date End Date Jeff Virgen MD [address] [facility] [place] [address] PCP - General Family Medicine 01/10/18 Asad Rothman, Formerly [facility] [address] [facility] [place] [address] Pharmacist Pharmacy 05/24/20 Kaitlyn [facility] [address] [place] [address] Pharmacist Pharmacy 03/31/21 Manager Human Resources Relationship Specialty Start Date End Date Jeff Virgen MD [address] [facility] [place] [address] PCP - General Family Medicine 01/10/18 Asad Rothman, Formerly [facility] [address] [facility] [place] [address] Pharmacist Pharmacy 05/24/20 Kaitlyn Hernández, Formerly [facility] [address] [facility] [place] [address] Pharmacist Pharmacy 03/31/21 Manager Human Resources Relationship Specialty Start Date End Date Jeff Virgen MD [address] [facility] [place] [address] PCP - General Family Medicine 01/10/18 Faizandarcie GregoriocjSc[facility] [address] [place] [address] Pharmacist Pharmacy 05/24/20 Edgar KaitlynSc[facility] [address] [place] [address] Pharmacist Pharmacy 03/31/21 Manager Human Resources Relationship Specialty Start Date End Date Jeff Virgen MD [address] [place] [address] PCP - General Family Medicine 01/10/18 Stephan Gregoriocj, Formerly [facility] [address] [place] [address] Pharmacist Pharmacy 05/24/20 Kaitlyn [facility] [address] [place] [address] Pharmacist Pharmacy 03/31/21 Manager Human Resources Relationship Specialty Start Date End Date Jeff Virgen MD [address] [place] [address] PCP - General Family Medicine 01/10/18 Asad Rothman, Formerly [facility] [address] [place] [address] Pharmacist Pharmacy 05/24/20 Jaqueline Hernándezily, Formerly [facility] [address] [place] [address] Pharmacist Pharmacy 03/31/21 Manager Human Resources Relationship Specialty Start Date End Date Jeff Virgen MD [address] [place] [address] PCP - General Family Medicine 01/10/18 Asad Rothman, Formerly [facility] [address] [place] [address] Pharmacist Pharmacy 05/24/20 Edgar Kaitlyn, Formerly [facility] [address] [place] [address] Pharmacist Pharmacy 03/31/21 Manager Human Resources Relationship Specialty Start Date End Date Jeff Virgen MD [address] [place] [address] PCP - General Family Medicine 01/10/18 Asad Rothman, Formerly [facility] [address] [place] [address] Pharmacist Pharmacy 05/24/20 [place], Kaitlyn, Formerly [facility] [address] [place] [address] Pharmacist Pharmacy 03/31/21 Manager Human Resources Relationship Specialty Start Date End Date Jeff Virgen MD [address] [place] [address] PCP - General Family Medicine 01/10/18 FaizanAsad sprague, Formerly [facility] [address] [place] [address] Pharmacist Pharmacy 05/24/20 Edgar, Kaitlyn, Formerly [facility] [address] [place] [address] Pharmacist Pharmacy 03/31/21 Manager Human Resources Relationship Specialty Start Date End Date Jeff Virgen MD [address] [place] [address] PCP - General Family Medicine 01/10/18 Faizandarcie Asad, Formerly [facility] [address] [place] [address] Pharmacist Pharmacy 05/24/20 [place], [facility]lynSc[facility] [address] [place] [address] Pharmacist Pharmacy 03/31/21 Manager Human Resources Relationship Specialty Start Date End Date Jeff Virgen MD [address] [place] [address] PCP - General Family Medicine 01/10/18 [facility] CenterAs[facility] spragueSc[facility] [address] [place] [address] Pharmacist Pharmacy 05/24/20 Jaqueline Hernándezily, Formerly [facility] [address] [place] [address] Pharmacist Pharmacy 03/31/21 Manager Human Resources Relationship Specialty Start Date End Date Jeff Virgen MD [address] [place] [address] PCP - General Family Medicine 01/10/18 Asad [facility]manSc[facility] [address] [place] [address] Pharmacist Pharmacy 05/24/20 Kaitlyn HernándezSc[facility] [address] [place] [address] Pharmacist Pharmacy 03/31/21 Manager Human Resources Relationship Specialty Start Date End Date Jeff Virgen MD [address] [place] [address] PCP - General Family Medicine 01/10/18 Asad [facility]manSc[facility] [address] [place] [address] Pharmacist Pharmacy 05/24/20 Kaitlyn HernándezSc[facility] [address] [facility] [place] [address] Pharmacist Pharmacy 03/31/21 Manager Human Resources Relationship Specialty Start Date End Date Jeff Virgen MD [address] [place] [address] PCP - General Family Medicine 01/10/18 Asad Rothman, Formerly [facility] [address] [place] [address] Pharmacist Pharmacy 05/24/20 Kaitlyn Hern[facility]dezSc[facility] [address] [place] [address] Pharmacist Pharmacy 03/31/21 Manager Human Resources Relationship Specialty Start Date End Date Jeff Virgen MD [address] [place] [address] PCP - General Family Medicine 01/10/18 Asad Rothman, Formerly [facility] [address] [place] [address] Pharmacist Pharmacy 05/24/20 Kaitlyn Hernández, Formerly [facility] [address] [place] [address] Pharmacist Pharmacy 03/31/21 Manager Human Resources Relationship Specialty Start Date End Date Jeff Virgen MD [address] [facility] [place] [address] PCP - General Family Medicine 01/10/18 Asad Rothman, Formerly [facility] [address] [place] [address] Pharmacist Pharmacy 05/24/20 Kaitlyn Hernández, Formerly [facility] [address] [place] [address] Pharmacist Pharmacy 03/31/21 Manager Human Resources Relationship Specialty Start Date End Date Jeff Virgen MD [address] [place] [address] PCP - General Family Medicine 01/10/18 [facility] [address] [place] [address] Pharmacist Pharmacy 05/24/20 Edgar KaitlynScotland County [facility] [address] [place] [address] Pharmacist Pharmacy 03/31/21 Manager Human Resources Relationship Specialty Start Date End Date Jeff Virgen MD [address] [place] [address] PCP - General Family Medicine 01/10/18 [place], [facility]lynSc[facility] [address] [place] [address] Pharmacist Pharmacy 03/31/21 Manager Human Resources Relationship Specialty Start Date End Date Jeff Virgen MD [address] [place] [address] PCP - General Family Medicine 01/10/18 Edgar [facility]lynSc[facility] [address] [place] [address] Pharmacist Pharmacy 03/31/21 Manager Human Resources Relationship Specialty Start Date End Date Jeff Virgen MD [address] [place] [address] PCP - General Family Medicine 01/10/18 Manager Human Resources Relationship Specialty Start Date End Date Jeff Virgen MD [address] [place] [address] PCP - General Family Medicine 01/10/18 Manager Human Resources Relationship Specialty Start Date End Date Jeff Virgen MD [address] [place] [address] PCP - General Family Medicine 01/10/18 Manager Human Resources Relationship Specialty Start Date End Date Jeff Virgen MD [address] [place] [address] PCP - General Family Medicine 01/10/18 Manager Human Resources Relationship Specialty Start Date End Date Jeff Virgen MD [address] [place] [address] PCP - General Family Medicine 01/10/18 Manager Human Resources Relationship Specialty Start Date End Date Jeff Virgen MD [address] [place] [address] PCP - General Family Medicine 01/10/18 Manager Human Resources Relationship Specialty Start Date End Date Jeff Virgen MD [address] [place] [address] PCP - General Family Medicine 01/10/18 Manager Human Resources Relationship Specialty Start Date End Date Jeff Virgen MD [address] [place] [address] PCP - General Family Medicine 01/10/18 Manager Human Resources Relationship Specialty Start Date End Date Jeff Virgen MD [address] [place], [place] [address] PCP - General Family Medicine 01/10/18 Manager Human Resources Relationship Specialty Start Date End Date Jeff Virgen MD [address] [place] [address] PCP - General Family Medicine 01/10/18 Manager Human Resources Relationship Specialty Start Date End Date Jeff Virgen MD [address] [place] [address] PCP - General Family Medicine 01/10/18 Manager Human Resources Relationship Specialty Start Date End Date Jeff Virgen MD [address] [place] [address] PCP - General Family Medicine 01/10/18 Manager Human Resources Relationship Specialty Start Date End Date Jeff Virgen MD [address] [place] [address] PCP - General Family Medicine 01/10/18 Manager Human Resources Relationship Specialty Start Date End Date Jeff Virgen MD [address] [place] [address] PCP - General Family Medicine 01/10/18 Manager Human Resources Relationship Specialty Start Date End Date Jeff Virgen MD [address] [place] [address] PCP - General Family Medicine 01/10/18 Manager Human Resources Relationship Specialty Start Date End Date Jeff Virgen MD [address] [place] [address] PCP - General Family Medicine 01/10/18 Manager Human Resources Relationship Specialty Start Date End Date Jeff Virgen MD [address] [place] [address] PCP - General Family Medicine 01/10/18 Manager Human Resources Relationship Specialty Start Date End Date Jeff Virgen MD [address] [place] [address] PCP - General Family Medicine 01/10/18 Manager Human Resources Relationship Specialty Start Date End Date Jeff Virgen MD [address] [place] [address] PCP - General Family Medicine 01/10/18 Asad Rothman, Formerly [facility] [address] [place] [address] Pharmacist Pharmacy 05/24/20 07/30/23 Kaitlyn Hernández Formerly [facility] [address] [place] [address] Pharmacist Pharmacy 03/31/21 08/29/23 Manager Human Resources Relationship Specialty Start Date End Date Jeff Virgen MD [address] [place] [address] PCP - General Family Medicine 01/10/18 Asad Rothman, Formerly [facility] [address] [place] [address] Pharmacist Pharmacy 05/24/20 07/30/23 Kaitlyn Hernández, Formerly [facility] [address] [place] [address] Pharmacist Pharmacy 03/31/21 08/29/23 Manager Human Resources Relationship Specialty Start Date End Date Jeff Virgen MD [address] [place] [address] PCP - General Family Medicine 01/10/18 Asad Rothman, Formerly [facility] [address] [place] [address] Pharmacist Pharmacy 05/24/20 07/30/23 Kaitlyn Hernández, Formerly [facility] [address] [place] [address] Pharmacist Pharmacy 03/31/21 08/29/23 Manager Human Resources Relationship Specialty Start Date End Date Jeff Virgen MD [address] [place] [address] PCP - General Family Medicine 01/10/18 Asad Rothman, Formerly [facility] [address] [place] [address] Pharmacist Pharmacy 05/24/20 07/30/23 [place], Kaitlyn, Formerly [facility] [address] [place] [address] Pharmacist Pharmacy 03/31/21 08/29/23 Manager Human Resources Relationship Specialty Start Date End Date Jeff Virgen MD [address] [place] [address] PCP - General Family Medicine 01/10/18 Asad Rothman, Formerly [facility] [address] [place] [address] Pharmacist Pharmacy 05/24/20 07/30/23 [place], Kaitlyn, Formerly [facility] [address] [place] [address] Pharmacist Pharmacy 03/31/21 08/29/23 Manager Human Resources Relationship Specialty Start Date End Date Jeff Virgen MD [address] [place] [address] PCP - General Family Medicine 01/10/18 Asad Rothman, Formerly [facility] [address] [place] [address] Pharmacist Pharmacy 05/24/20 07/30/23 Manager Human Resources Relationship Specialty Start Date End Date Jeff Virgen MD [address] [place] [address] PCP - General Family Medicine 01/10/18 Manager Human Resources Relationship Specialty Start Date End Date Jeff Virgen MD [address] [place] [address] PCP - General Family Medicine 01/10/18 Manager Human Resources Relationship Specialty Start Date End Date Jeff Virgen MD [address] [place], [place] [address] PCP - General Family Medicine 01/10/18 (unrecognized sect ion and content) No Status Records FoundNo Status Records Found INFORMATION SOURCE (unrecogn ized section and content) DATE CREATED AUTHOR 05/18/2024 [facility] DATE CREATED AUTHOR 'S ORGANIZ ATION 06/27/2024 [facility] FOR RECORDS PERTAINING TO PATIENTS [...] BE BASED ON THE PRIMARY CLINICAL RECORDS. [employer] provides no warranty or guarantee of the accuracy or completeness of information in this document.
[2024-07-10 07:05] LABS: Troponin-I HS 8 pg/mL (3.0-78.0)
--- NOTE | 2024-07-10 07:41 | CT_ITS ---
STUDY: CT ABDOMEN AND PELVIS WITHOUT CONTRAST REASON FOR EXAM: Male, 79 years old. Hematuria with history of Bladder CA and UTI. RADIATION DOSAGE (If Supplied By Facility): CTDIvol = ( 23.79 ) mGy, DLP = ( 1301.75 ) mGycm TECHNIQUE: Transaxial images were obtained from the dome of the diaphragm to the symphysis pubis without oral contrast, and without intravenous contrast. Sagittal and coronal images were reconstructed. Individualized dose optimization techniques were used for this CT. COMPARISON: Comparison is made with prior study dated April 10, 2024. FINDINGS: Minimal right pleural thickening. Increased interstitial markings at the lung bases slightly more prominent at the right lung base suggestive of a linear scarring. Coronary artery calcification. There is hepatomegaly with diffuse hepatic enlargement. The patient is status post cholecystectomy. Normal spleen. Normal pancreas. Normal bilateral adrenal glands. Normal right kidney. 1.5 cm cyst in the posterior midportion of the left kidney. Nonspecific bilateral perinephric stranding. Normal visualized stomach. Normal small intestine. Normal colon. The appendix is visualized and appears normal. There is diffuse atherosclerotic calcification of the abdominal aorta, without a demonstrated aneurysm. Normal inferior vena cava. Normal retroperitoneum. Diffuse heterogeneous bladder wall thickening. This is worse along the left lateral wall and the base of the bladder on the left side. Central prostatic calcifications. Small bilateral inguinal hernias containing fat. There are diffuse degenerative changes of the visualized lumbar spine. Straightening of the normal lumbar lordosis. Bilateral hip osteoarthritis. CT/Abdomen/Pelvis without Cont IMPRESSION: Diffuse irregular bladder wall thickening. Hepatomegaly. Status post cholecystectomy. Nonspecific bilateral perinephric stranding. Electronically Signed: Александр Lei MD at 9:13 EDT ,
[2024-07-10] MEDS: Losartan Potassium 100 MG Tablet PO (08:31)
[2024-07-10] MEDS: dilTIAZem CD 120 MG Capsule PO (08:31)
[2024-07-10] MEDS: Carvedilol 25 MG Tablet PO ×2 (08:31→21:41)
[2024-07-10] MEDS: Colestipol 1 GM TABLET PO (08:31)
[2024-07-10] MEDS: Tolterodine Tartrate 4 MG CAP.SA PO (08:31)
[2024-07-10] MEDS: Flecainide 150 MG Tablet PO ×2 (08:31→21:41)
[2024-07-10] MEDS: Famotidine 20 MG Tablet PO ×2 (08:31→21:41)
[2024-07-10] MEDS: Finasteride 5 MG Tablet PO (08:31)
[2024-07-10] MEDS: AZTREONAM IV ×3 (08:41→21:52)
[2024-07-10] MEDS: NORMAL SALINE 0.9% IV ×3 (08:41→21:52)
--- NOTE | 2024-07-10 08:45 | NURSING ---
Per nuclear med there will be no add on stress tests today, patients will be tomorrow, okay to give all meds today.
[2024-07-10 08:50] LABS: Cholesterol 93 mg/dL (200); High Density Lipoprotein 38 mg/dL; Triglycerides 77 mg/dL; Very Low Density Lipoprotein 15 mg/dL (5-40)
[2024-07-10 09:11] LABS: D-Dimer Quantitative (DVT/PE) 0.39 FEU/ug/m (0.27-0.49)
--- NOTE | 2024-07-10 09:15 | EKG12_ITS ---
Test Reason : Blood Pressure : / mmHG Vent. Rate : 087 BPM Atrial Rate : 087 BPM P-R Int : 232 ms QRS Dur : 160 ms QT Int : 420 ms P-R-T Axes : 002 -70 038 degrees QTc Int : 505 ms Sinus rhythm with 1st degree A-V block Right bundle branch block Left anterior fascicular block Bifascicular block Abnormal ECG When compared with ECG of 10-JUL-2024 04:15, MANUAL COMPARISON REQUIRED, DATA IS UNCONFIRMED Confirmed by ROLAND SAMUEL, MIGUEL ANGEL ([id number]), online editor ENID CLINTON ([id number]) on 07/10/2024 2:12:37 PM Referred By: STEPHANIE Confirmed By:MIGUEL ANGEL WATKINS MD
[2024-07-10] MEDS: Mag Hydrox/Al Hydrox/Simeth 30 ML UDC PO (09:19)
[2024-07-10] MEDS: Lidocaine 2% Viscous15 ML UDC 15 ML PO (09:19)
[2024-07-10 09:57] LABS: Troponin-I HS 6 pg/mL (3.0-78.0)
[2024-07-10] MEDS: hydroCHLOROthiazide 12.5mg 12.5 MG PO (10:31)
[2024-07-10 12:12] LABS: Bedside Glucose 173 mg/dL (74-106)
[2024-07-10] MEDS: Insulin Lispro 100 UNIT/ML INSULN.PEN 16 UNIT SC ×2 (12:13→16:48)
[2024-07-10 17:09] LABS: Bedside Glucose 155 mg/dL (74-106)
[2024-07-10 21:37] LABS: Color, Urine Red (Yellow); Glucose, Dipstick 50 mg/dl (Normal); Ketone-Dipstick Negative (Negative); Leukocyte Esterase-Dipstick 500 /ul (Negative); Nitrite-Dipstick Negative (Negative); Occult Blood-Urine 250 /ul (Negative); Protein-Dipstick 100 mg/dl (Negative); Urine Bilirubin Dipstick Negative (Negative); Urine Clarity Turbid (Clear); Urine Urobilinogen Normal (Normal)
[2024-07-10] MEDS: Atorvastatin Calcium 20 MG Tablet PO (21:41)
[2024-07-10] MEDS: Insulin Glargine-YFGN 100 UNIT/ML Pen 60 UNIT SC (21:42)
[2024-07-10 21:45] LABS: Bacteria 1+ /hpf (None Seen); Mucous, Urine 1+ /hpf (<or=2+); Red Blood Cells-Urine > 100 SEEN /hpf (0-5); Squamous Epithelial Cells - UA 5-10 SEEN /hpf (0-5); White Blood Cells 50-100 SEEN /hpf (0-5)
[2024-07-10] MEDS: 0.9% Saline Lock 10 ML Syringe IV (21:45)
[2024-07-10] MEDS: Tamsulosin HCl 0.4 MG Capsule PO (22:43)
[2024-07-11 01:01] LABS: Bedside Glucose 272 mg/dL (74-106)
[2024-07-11 02:20] VITALS: BP 148/43; PULSE 71; RESP 18; TEMP 36.3; O2SAT 92
[2024-07-11 05:51] LABS: Absolute Lymphocyte Count 1.67 X10^3/uL (0.83-4.51); Absolute Neutrophil Count 7.7 X10^3/uL (2.0-7.7); Basophil# 0.03 X10^3/uL; Basophil% 0.3 % (0-1); Eosinophil# 0.32 X10^3/uL; Eosinophils% 2.9 % (0-5); Hematocrit 34.7 % (40-54); Hemoglobin 11.2 g/dL (13.0-16.5); Lymphocyte # 1.67 X10^3/ul (0.83-4.51); Lymphocyte % 15.3 % (19-41); Mean Corp Hgb Conc 32.3 g/dL (32-36); Mean Corpuscular Hgb 27.2 pg (27.0-32.0); Mean Corpuscular Volume 84.2 fL (80-94); Mean Platelet Vol. 10.7 fl (6.2-12.0); NRBC Flagged by Analyzer 0 % (0-5); Neutrophil # 7.68 X10^3/uL (2.7-7.7); Platelet Count 239 K/mm3 (150-450); RBC Distribution Width CV 13.7 % (11.6-14.6); RBC Distribution Width SD 41.8 fl (35.1-43.9); Red Blood Count 4.12 M/mm3 (4.6-6.2)
--- NOTE | 2024-07-11 05:55 | EKG12_ITS ---
Test Reason : AM EKG Blood Pressure : / mmHG Vent. Rate : 071 BPM Atrial Rate : 071 BPM P-R Int : 250 ms QRS Dur : 166 ms QT Int : 442 ms P-R-T Axes : 010 -69 033 degrees QTc Int : 480 ms Sinus rhythm with 1st degree A-V block Right bundle branch block Left anterior fascicular block Bifascicular block Cannot rule out Inferior infarct (masked by fascicular block?) , age undetermined Abnormal ECG When compared with ECG of 10-JUL-2024 07:45, No significant change was found Confirmed by ROLAND SAMUEL, MIGUEL ANGEL ([id number]), social media editor ENID CLINTON ([id number]) on 07/11/2024 10:09:32 AM Referred By: PERZE Confirmed By:MIGUEL ANGEL WATKINS MD
[2024-07-11 06:30] VITALS: BP 116/46; PULSE 71; RESP 18; TEMP 36.4; O2SAT 93
[2024-07-11] MEDS: NORMAL SALINE 0.9% IV (06:41)
[2024-07-11] MEDS: AZTREONAM IV (06:41)
[2024-07-11 06:58] LABS: ALB/GLOB Ratio 0.8 RATIO (0.9-2.4); AST(SGOT) 14 U/L (15-37); Alanine Aminotransfer ALT/SGPT 18 U/L (16-61); Alkaline Phosphatase 69 U/L (45-117); Anion Gap 4 (5-15); BUN 22 mg/dL (7-18); Calcium,Total 8.7 mg/dL (8.5-10.1); Chloride 101 mmol/L (98-107); Cholesterol 97 mg/dL (200); EST Glomerular Filtration Rate 76 mL/min (>60); Est Glom Filt Rate - Afr Amer 92 mL/min (>60); Estimated Creatinine Clearance 82.35 ml/min; Globulin 3.8 g/dL (2.2-4.2); Glucose 185 mg/dL (74-106); High Density Lipoprotein 41 mg/dL; Magnesium 2.1 mg/dL (1.6-2.6); Phosphorus 2.7 mg/dL (2.5-4.9); Potassium 3.6 mmol/L (3.5-5.1); Protein, Total 6.8 g/dL (6.4-8.2); Sodium Level 132 mmol/L (136-145); Triglycerides 108 mg/dL; Very Low Density Lipoprotein 22 mg/dL (5-40)
[2024-07-11 07:10] LABS: Bedside Glucose 185 mg/dL (74-106)
[2024-07-11] MEDS: hydroCHLOROthiazide 12.5mg 12.5 MG PO (09:44)
[2024-07-11] MEDS: Tamsulosin HCl 0.4 MG Capsule PO (09:44)
[2024-07-11] MEDS: Flecainide 150 MG Tablet PO (09:44)
[2024-07-11] MEDS: Losartan Potassium 100 MG Tablet PO (09:44)
[2024-07-11] MEDS: dilTIAZem CD 120 MG Capsule PO (09:45)
[2024-07-11] MEDS: Carvedilol 25 MG Tablet PO (09:45)
[2024-07-11] MEDS: Tolterodine Tartrate 4 MG CAP.SA PO (09:45)
[2024-07-11] MEDS: Insulin Lispro 100 UNIT/ML INSULN.PEN 16 UNIT SC (09:45)
[2024-07-11] MEDS: Finasteride 5 MG Tablet PO (09:45)
[2024-07-11] MEDS: Colestipol 1 GM TABLET PO (09:45)
[2024-07-11] MEDS: Famotidine 20 MG Tablet PO (09:45)
--- NOTE | 2024-07-11 10:37 | STRESSREP_ITS ---
Stress Test Report Pharmacologic/Lexiscan myocardial perfusion stress test. Indication; 79-year-old patient history of hypertension, hyperlipidemia, remote history of tobacco abuse Had a history of nonobstructive CAD paroxysmal A-fib and CJ Based on the clinical presentation of symptoms of shortness of breath and chest pain he was evaluated with Lexiscan sestamibi. Stress protocol: Resting EKG demonstrates. Normal sinus rhythm. Right bundle branch block, left anterior fascicular block 0.4 mg of regadenoson was infused per usual protocol followed by rapid intravenous saline flush injection continuous EKG monitoring was performed. The maximum heart rate attained was 80 bpm which was 57% of maximum predicted heart . Stress EKG showed[, no significant change from the resting EKG, with maximum heart rate of 80 bpm. Arrhythmia: No arrhythmia demonstrated Symptoms: Patient had no symptoms of chest pain Blood pressure at rest: 138/72 mmHg blood pressure at the end of stress: 138/72 mmHg Myocardial perfusion protocol. [10 mCi ]of Technetium 99m Sestamibi was injected at rest. [ 0.4 mg ]of Regadenoson was infused per usual protocol peak infusion[32.9 mCi ]of Technetium 99m sestamibi was injected. Stress images were obtained stress and rest images were reconstructed and compared in the short axis vertical and horizontal long axis. Gated images were also obtained Perfusion SPECT analysis: Review of the images demonstrate normal uptake of sestamibi at rest, post stress images demonstrate similar uptake of sestamibi to the resting images, homogeneous tracer uptake With no evidence of reversible myocardial ischemia. Gated SPECT analysis: The gated ejection fraction is 66%. Normal LV wall motion and LV systolic function Conclusion: Negative Lexiscan sestamibi myocardial perfusion study with no evidence of fixed or reversible defect Normal LV systolic function No prior study to compare. Patient had no symptoms reported during the Lexiscan stress test. Marcus Hodge MD,FACC,[facility]
--- NOTE | 2024-07-11 11:13 | DCINST_ITS ---
Discharge Instructions Diet Discharge Diet: Low fat / Low cholesterol and Carb Control Diet Activity Discharge Activity: Return to Normal Activity Dressing / Incision Call your doctor if you observe: Fever of 101 or Higher, Shortness of breath, Dizziness, Fainting spells, Swelling in the ankles, Chest pain and Increased palpitations (irregular heartbeat) Follow Up Care Test Results: Test results from this visit will be discussed in further detail at your follow- up appointment, if applicable. Discharge Plan Admission Admit Date/Time: 07/10/24 06:13 Attending Provider: Ramiro Suárez Primary Care Provider: Jeff Subramanian Consulting Providers: Sachin Prather Discharge Orders/Prescriptions Prescriptions: New nitrofurantoin monohyd/m-cryst [Macrobid] 100 mg capsule 100 mg PO Q12H 3 Days Qty: 6 0RF Rx Instructions: must administer with a meal/food Continued carvedilol 25 mg tablet 25 mg PO BID Qty: 180 3RF losartan-hydrochlorothiazide 100-12.5 mg tablet 1 tab PO DAILY metformin 500 mg tablet extended release 24 hr 1,000 mg PO BID albuterol sulfate 90 mcg/actuation HFA aerosol inhaler 1 inh INHALATION Q6H PRN (Reason: SOB) Qty: 8.5 6RF flecainide 150 mg tablet 150 mg PO Q12H turmeric root extract 500 mg capsule 1,000 mg PO DAILY simvastatin 40 MG tablet 40 mg PO QHS insulin lispro [Humalog KwikPen Insulin] 100 unit/mL insulin pen 26 unit SUBCUT TID colestipol 1 gram tablet 1 g PO DAILY famotidine 20 mg tablet 20 mg PO BID Patient Comments: take 1 tablet by mouth twice a day insulin glargine [Basaglar KwikPen U-100 Insulin] 100 unit/mL (3 mL) insulin pen 90 unit subcut QHS NUVOFLEX 1 cap PO DAILY diltiazem HCl [Cartia XT] 120 mg capsule,extended release 24hr 120 mg PO DAILY tamsulosin 0.4 mg capsule 0.4 mg PO BID finasteride 5 mg tablet 5 mg PO DAILY Held Eliquis 5 mg tablet 5 mg PO BID Qty: 180 3RF Hold Instructions: Resume on 07/14/24. aspirin 81 mg tablet,delayed release (DR/EC) 81 mg PO DAILY Qty: 90 3RF Hold Instructions: Resume on 07/14/24. Referrals / Follow Up: Jeff Subramanian MD [Primary Care Provider] - Within 1 Week Disposition Disposition (needs filled in before D/C Order can be placed): Home, Self Care
--- NOTE | 2024-07-11 13:36 | PCM.DC.SUM ---
Providers Date of Admission: 07/10/24 Primary Care Physician: Dr. Jeff Subramanian MD Reason For Visit: CHEST PAIN AND LEUKOCYTOSIS Diagnosis Discharge Diagnosis (1) Chest pain: Status: Acute Code(s): R07.9 - Chest pain, unspecified Qualifiers: Chest pain type: unspecified Qualified Code(s): R07.9 - Chest pain, unspecified (2) Leukocytosis: Status: Acute Code(s): D72.829 - Elevated white blood cell count, unspecified Qualifiers: Leukocytosis type: unspecified Qualified Code(s): D72.829 - Elevated white blood cell count, unspecified (3) Acute cystitis with hematuria: Status: Acute Code(s): N30.01 - Acute cystitis with hematuria (4) Adverse drug reaction: Status: Acute Code(s): T50.905A - Adverse effect of unspecified drugs, medicaments and biological substances, initial encounter Qualifiers: Encounter type: initial encounter Qualified Code(s): T50.905A - Adverse effect of unspecified drugs, medicaments and biological substances, initial encounter (5) Morbid obesity with BMI of 40.0-44.9, adult: Status: Acute Code(s): E66.01 - Morbid (severe) obesity due to excess calories; Z68.41 - Body mass index [BMI] 40.0-44.9, adult (6) Paroxysmal atrial fibrillation: Status: Chronic Code(s): I48.0 - Paroxysmal atrial fibrillation (7) Right bundle branch 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: Status: Chronic Code(s): I45.2 - Bifascicular block (8) Essential (primary) hypertension: Status: Chronic Code(s): I10 - Essential (primary) hypertension Medications at Discharge Home Medications simvastatin 40 mg tablet 40 mg PO QHS cholesterol 04/21/15 apixaban 5 mg tablet (Eliquis) 5 mg PO BID #180 tabs 02/22/21 aspirin 81 mg tablet,delayed release 81 mg PO DAILY #90 tabs 02/22/21 carvedilol 25 mg tablet 25 mg PO BID #180 tabs 02/22/21 losartan 100 mg-hydrochlorothiazide 12.5 mg tablet 1 tab PO DAILY 06/23/21 insulin lispro 100 unit/mL subcutaneous pen (Humalog KwikPen (U-100) Insulin) 26 unit subcut TID diabetes 10/24/21 metformin 500 mg tablet,extended release 24 hr 1,000 mg PO BID 10/24/21 albuterol sulfate 90 mcg/actuation aerosol inhaler 1 inh inhalation Q6H PRN SOB #8.5 grams 11/30/21 colestipol 1 gram tablet 1 g PO DAILY 01/30/22 finasteride 5 mg tablet 5 mg PO DAILY 10/27/22 NUVOFLEX 1 cap PO DAILY 09/22/23 famotidine 20 mg tablet 20 mg PO BID 09/22/23 insulin glargine 100 unit/mL (3 mL) subcutaneous pen (Basaglar KwikPen U-100 Insulin) 90 unit subcut QHS 09/22/23 flecainide 150 mg tablet 150 mg PO Q12H 10/24/23 turmeric root extract 500 mg capsule 1,000 mg PO DAILY 10/24/23 diltiazem HCl 120 mg capsule,extended release 24 hr (Cartia XT) 120 mg PO DAILY 06/08/24 tamsulosin 0.4 mg capsule 0.4 mg PO BID 07/10/24 nitrofurantoin monohydrate/macrocrystals 100 mg capsule (Macrobid) 100 mg PO Q12H 3 days #6 caps 07/11/24 Hospital Course Operations None Procedures Stress test Summary of Care Provided Minutes Spent on Discharge: 37 Hospital Course: Per HPI: INGRIS ALARCON, is a 79 M with a past medical history of essential hypertension, hyperlipidemia, remote history of tobacco abuse; (quit 1975), morbid obesity; with BMI of 40.1 this admission, CJ; on CPAP, DM-2; of unknown control, former tobacco abuse, history of nonobstructive CAD, PAF; on diltiazem, flecainide and Eliquis, history of RBBB with LAFB, history of RAD, history of COVID-19 pneumonia, history of bladder cancer, history of gross hematuria, psoriasis, RLS, history of blindness in the Left eye, BPH; s/p TURP on Finasteride, OAB; on oxybutynin, history of cholecystectomy, history of umbilical hernia; s/p repair, GERD; on famotidine, OA; with chronic back pain and listed allergy to amoxicillin (rash) who presents to [facility] ER complaining of chest pain, SOB and hematuria. Mr. Alarcon reports his symptoms began approximately one hour prior to arrival with the abrupt-onset of chest pain that woke him up from a sound sleep and was substernal, sharp, stabbing and nonradiating with nothing seeming to make the pain better or worse with pain lasting approximately 4 minutes. He then called to inform his daughter who then instructed him to activate EMS. He states he felt fine prior to retiring for the evening. His daughter informed the ER physician that he was already scheduled to have an outpatient NST and she was very concerned about taking him home prior to these tests being done. A review of his records shows he underwent an echocardiogram in 03/2024 for an indication of atrial fibrillation that revealed a LVEF ~65% with [id number] aortic valve stenosis with an ANA of ~1.29 cm? and mild mitral annular calcification with mild 1+ mitral valve regurgitation. He denies associated fever, chills, nausea, vomiting, diaphoresis, lower extremity or edema but he does admit to SOB at rest and ongoing hematuria that seems unchanged from previous - and his chest pain was noted to recur in the ER. In the ER he was noted to have a normal troponin of 8 pg/mL along with an EKG that showed NSR @ 87 bpm with first-degree AV block with RBBB and LAFB and no acute ischemic changes along with Leukocytosis of 17.5 K present on admission with UA pending at this time in the setting of ongoing Hematuria and suspected UTI. His CXR is unremarkable for acute pathologic changes. He was then admitted to the PCU under observation status for ongoing care for a stay that is expected to be less than 2 midnights. Hospital course: 1. Chest pain with a history of nonobstructive CAD/paroxysmal A-fib/essential HTN/HLD?79-year-old male presents to the hospital with chest pain that was nonradiating for about 4 minutes. He presented yesterday morning however we did not have enough nuclear medicine material for stress test yesterday so he had it today. Stress test came back is nonischemic and his chest pain has completely resolved. I discussed with him the plan for discharge she expressed understanding the risk benefits going home and would like to go home today. Will resume all of his home medications except for his Eliquis as he was having a little bit of hematuria on the day of discharge which she states is chronic, hemoglobin is stable but will hold his Eliquis for a couple of days on discharge which was communicated to him. I do recommend they follow-up with his PCP in 3 to 5 days to monitor outpatient lab work and make any changes necessary. 2. UTI?thought to have a UTI on admission, his squamous cells were little bit elevated and it did come back as a mixed culture however with the hematuria and his white count on admission of 17 he was started on aztreonam and white count resolved to 11. Will provide him with Macrobid for a few more days on discharge as well. 3. Type 2 diabetes, history of bladder cancer, psoriasis, RLS all chronic medical conditions which complicates care. His home medications were continued where appropriate Physical Exam Narrative General: Alert, Oriented x3, Cooperative, No apparent distress HEENT: Atraumatic, blind in left eye, Normocephalic Oral: Moist Mucosa Neck: Supple, No JVD Lungs: Diminished, Normal air movement, No rhonchi, No wheeze, No rales Cardiovascular: Regular rate, Regular Rhythm, Normal S1, Normal S2, No murmurs Abdomen: Soft, Non Tender, Non-Distended, No Hepato-splenomegaly Extremities: No edema, Capillary Refill Less than 3 Seconds Skin: No rashes, No breakdown Musculoskeletal: No Tenderness to Palpation of Joints or Extremities Neurological: No focal neurological deficits, Motor Exam 5/5 strength throughout, Sensory exam intact to light touch and pain Psych/Mental Status: Normal Affect, Appropriate Weight / BMI Weight Weight: 280 lb 6.848 oz Body Mass Index (BMI) 37.0 ABG / Lab / Microbiology Data 07/11/24 05:25 07/11/24 05:25 Laboratory: Laboratory Results - last 24 hr 07/10/24 09:20: Hemoglobin A1c 7.0 H 07/10/24 16:47: POC Glucose 155 H 07/10/24 20:10: Urine Color Red, Urine Clarity Turbid, Urine pH 5.0, Ur Specific [place] 1.020, Urine Protein 100 H, Urine Glucose (UA) 50 H, Urine Ketones Negative, Urine Occult Blood 250 H, Urine Nitrite Negative, Urine Bilirubin Negative, Urine Urobilinogen Normal, Ur Leukocyte Esterase 500 H, Urine RBC > 100 SEEN, Urine WBC 50-100 SEEN, Ur Squamous Epith Cells 5-10 SEEN, Urine Bacteria 1+, Urine Mucus 1+ 07/10/24 21:39: POC Glucose 272 H 07/11/24 05:25: WBC 11.0, RBC 4.12 L, Hgb 11.2 L, Hct 34.7 L, MCV 84.2, MCH 27.2, MCHC 32.3, RDW Std Deviation 41.8, RDW Coeff of [place] 13.7, Plt Count 239, MPV 10.7, Immature Gran % (Auto) 0.500, Neut % (Auto) 70.0, Lymph % (Auto) 15.3 L, [place] % (Auto) 11.0 H, Eos % (Auto) 2.9, Baso % (Auto) 0.3, Absolute Neuts (auto) 7.7, Absolute Lymphs (auto) 1.67, Nucleated RBC % 0, Sodium 132 L, Potassium 3.6, Chloride 101, Carbon Dioxide 26.0, Anion Gap 4 L, BUN 22 H, Creatinine 1.00, Estim Creat Clear Calc 82.35, Est GFR (MDRD) Af Amer 92, Est GFR (MDRD) Non-Af 76, BUN/Creatinine Ratio 22.0 H, Glucose 185 H, Hemoglobin A1c 7.0 H, Calcium 8.7, Phosphorus 2.7, Magnesium 2.1, Total Bilirubin 0.40, AST 14 L, ALT 18, Alkaline Phosphatase 69, Total Protein 6.8, Albumin 3.0 L, Globulin 3.8, Albumin/Globulin Ratio 0.8 L, Triglycerides 108, Cholesterol 97, LDL Cholesterol 34, VLDL Cholesterol 22, HDL Cholesterol 41, TSH 1.450 07/11/24 06:38: POC Glucose 185 H D/C Instructions Discharge Diet: Low fat / Low cholesterol and Carb Control Diet Call your doctor if you observe: Fever of 101 or Higher, Shortness of breath, Dizziness, Fainting spells, Swelling in the ankles, Chest pain and Increased palpitations (irregular heartbeat) Meaningful Use Info Meaningful Use Meaningful Use Diagnoses (Choose all that apply): None applicable Ischemic Stroke Statin Dosing Therapy Reference: STATIN DOSE THERAPY REFERENCE: * Patients > 75 years receive moderate or high dose statin therapy. * Patients 75 years or YOUNGER should receive HIGH intensity statin dose unless contraindicated. You will be required to document reason for non-treatment if statin daily dose does not meet guidelines. HIGH DOSE STATIN THERAPY DAILY Atorvastatin > than or = to 40 mg Rosuvastatin > than or = to 20 mg Amlodipine + Atorvastatin > than or = to 2.5/40 mg Ezetimibe + Simvastatin 10/80 mg Simvastatin 80mg Discharge Plan Admission Admit Date/Time: 07/10/24 06:13 Attending Provider: Ramiro Suárez Primary Care Provider: Jeff Subramanian Consulting Providers: Sachin Prather Discharge Orders/Prescriptions Prescriptions: New nitrofurantoin monohyd/m-cryst [Macrobid] 100 mg capsule 100 mg PO Q12H 3 Days Qty: 6 0RF Rx Instructions: must administer with a meal/food Continued carvedilol 25 mg tablet 25 mg PO BID Qty: 180 3RF losartan-hydrochlorothiazide 100-12.5 mg tablet 1 tab PO DAILY metformin 500 mg tablet extended release 24 hr 1,000 mg PO BID albuterol sulfate 90 mcg/actuation HFA aerosol inhaler 1 inh INHALATION Q6H PRN (Reason: SOB) Qty: 8.5 6RF flecainide 150 mg tablet 150 mg PO Q12H turmeric root extract 500 mg capsule 1,000 mg PO DAILY simvastatin 40 MG tablet 40 mg PO QHS insulin lispro [Humalog KwikPen Insulin] 100 unit/mL insulin pen 26 unit SUBCUT TID colestipol 1 gram tablet 1 g PO DAILY famotidine 20 mg tablet 20 mg PO BID Patient Comments: take 1 tablet by mouth twice a day insulin glargine [Basaglar KwikPen U-100 Insulin] 100 unit/mL (3 mL) insulin pen 90 unit subcut QHS NUVOFLEX 1 cap PO DAILY diltiazem HCl [Cartia XT] 120 mg capsule,extended release 24hr 120 mg PO DAILY tamsulosin 0.4 mg capsule 0.4 mg PO BID finasteride 5 mg tablet 5 mg PO DAILY Held Eliquis 5 mg tablet 5 mg PO BID Qty: 180 3RF Hold Instructions: Resume on 07/14/24. aspirin 81 mg tablet,delayed release (DR/EC) 81 mg PO DAILY Qty: 90 3RF Hold Instructions: Resume on 07/14/24. Referrals / Follow Up: Jeff Subramanian MD [Primary Care Provider] - Within 1 Week Disposition Disposition (needs filled in before D/C Order can be placed): Home, Self Care Charges/Coding Visit Charges Inpatient E&M: 50139 Disch Hosp >30min
--- NOTE | 2024-07-11 14:04 | CASEMGMT ---
Patient has order for discharge. RN CM in to discuss needs at discharge, daugther at bedside. Patient denies needs or help at discharge. Patient and daughter had no further questions or concerns.
[2024-07-11 14:43] VITALS: BP 128/81; PULSE 70; RESP 18; TEMP 36.7; O2SAT 92
== END 2024-07-11 14:43 | disposition home or self-care (01) ==
LOC: ED 04:25 → PCU 06:33
PROVIDERS: Admitting Provider Internal Medicine; Emergency Provider Emergency Medicine; PCP Family Medicine; Visit Provider Family Medicine
DX: R07.89 Other chest pain (principal); I48.0 Paroxysmal atrial fibrillation; Z68.41 Body mass index [BMI] 40.0-44.9, adult; E66.01 Morbid (severe) obesity due to excess calories; Z79.4 Long term (current) use of insulin; E11.9 Type 2 diabetes mellitus without complications; I45.2 Bifascicular block; I44.0 Atrioventricular block, first degree; I25.10 Atherosclerotic heart disease of native coronary artery without angina pectoris; N30.01 Acute cystitis with hematuria; Z87.891 Personal history of nicotine dependence; D72.829 Elevated white blood cell count, unspecified; G47.33 Obstructive sleep apnea (adult) (pediatric); I10 Essential (primary) hypertension; G89.29 Other chronic pain; E78.00 Pure hypercholesterolemia, unspecified; Z79.899 Other long term (current) drug therapy; Z79.82 Long term (current) use of aspirin; Z79.84 Long term (current) use of oral hypoglycemic drugs; Z79.01 Long term (current) use of anticoagulants; K21.9 Gastro-esophageal reflux disease without esophagitis; R06.02 Shortness of breath
CPT/HCPCS: 36415; 71045; 74176; 78452; 80048; 80053; 80061; 81001; 82962; 83036; 83735; 83880; 84100; 84443; 84484; 85025; 85379; 93005; 93017; 94668; 96365; 96366; 97162; 97802; 99221; 99285; A9500; A4216; G0378; J2785

== ENCOUNTER 2024-07-22 12:12 | Inpatient (IN) | payer MEDICARE, SELFPAY ==
[2024-07-22] VITALS (11 sets, daily range): BP systolic 126–162; BP diastolic 48–86; PULSE 70–84; RESP 17–25; TEMP 35.9–36.6; O2SAT 88–97; BMI 43.1; BMI 39.7
--- NOTE | 2024-07-22 13:15 | RAD_ITS ---
STUDY: X-RAY CHEST REASON FOR EXAM: Male, 79 years old. Chest pain TECHNIQUE: Single AP portable view of the chest. COMPARISON: Comparison is made with prior study dated July 10, 2024. FINDINGS: EKG electrodes are seen. Vascular congestion and CHF. There is no demonstrated pleural abnormality. There is moderate cardiac enlargement. Normal mediastinum and shashi. Normal visualized pulmonary arteries. Normal visualized aortic arch and descending thoracic aorta. Normal visualized thoracic spine. Normal visualized ribs, clavicles, and shoulders. There is no demonstrated abnormality of the visualized soft tissue structures of the upper abdomen. RAD/Chest 1 View (Portable) IMPRESSION: Moderate cardiomegaly. Thoracic congestion and CHF. Electronically Signed: Александр Lei MD at 13:34 EST ,
--- NOTE | 2024-07-22 13:15 | EKG12_ITS ---
Test Reason : SOB Blood Pressure : */* mmHG Vent. Rate : 73 BPM Atrial Rate : 73 BPM P-R Int : 218 ms QRS Dur : 162 ms QT Int : 442 ms P-R-T Axes : 9 -66 41 degrees QTcB Int : 486 ms Sinus rhythm with 1st degree A-V block Right bundle branch block Left anterior fascicular block Bifascicular block Abnormal ECG Confirmed by Gabriel Lin ([id number]), editorial cartoonist ENID CLINTON ([id number]) on 07/23/2024 11:41:49 AM Referred By: Confirmed By: Gabriel Lin
[2024-07-22 13:29] LABS: Absolute Lymphocyte Count 0.98 X10^3/uL (0.83-4.51); Absolute Neutrophil Count 13.9 X10^3/uL (2.0-7.7); Basophil# 0.04 X10^3/uL; Basophil% 0.2 % (0-1); Eosinophil# 0.14 X10^3/uL; Eosinophils% 0.9 % (0-5); Hematocrit 40.3 % (40-54); Hemoglobin 12.6 g/dL (13.0-16.5); Lymphocyte # 0.98 X10^3/ul (0.83-4.51); Mean Corp Hgb Conc 31.3 g/dL (32-36); Mean Corpuscular Hgb 26.6 pg (27.0-32.0); Mean Corpuscular Volume 85.2 fL (80-94); Mean Platelet Vol. 10.9 fl (6.2-12.0); Monocyte# 1.27 X10^3/uL; Monocyte% 7.7 % (0-10); NRBC Flagged by Analyzer 0 % (0-5); Neutrophil # 13.89 X10^3/uL (2.7-7.7); Neutrophil % 84.7 % (47-70); Platelet Count 350 K/mm3 (150-450); RBC Distribution Width CV 14.1 % (11.6-14.6); RBC Distribution Width SD 43.6 fl (35.1-43.9); Red Blood Count 4.73 M/mm3 (4.6-6.2); White Blood Count 16.4 K/mm3 (4.4-11.0)
--- NOTE | 2024-07-22 13:36 | ED.VIS.DYS ---
HPI History of Present Illness Chief Complaint: Shortness of Breath Informant: patient and family Onset/Context/Timing Onset: Today Context: gradual Timing: Continuous Quality: Positive for Dyspnea on exertion and Wheezing Current Severity: Mild Maximum Severity: Mild Worsened by: Exertion Relieved by: Oxygen Associated Symptoms cough Chest Pain: Positive for None Narrative Narrative: 79-year-old male history of A-fib, CAD, right bundle branch block was on Eliquis recently stopped due to bladder cancer surgery through the scope. Typically not on home O2 with a history of restrictive lung disease. No history of DVT or PE. No history of leg pain or swelling. No chest pain or hemoptysis. He was in his urologist office today. They noted he was short of breath and sent in the ER for evaluation. Patient has had a recent nonproductive cough. PE Risk Factors: Negative for Cancer, OCP + Smoking + > 35, Prior DVT or PE or Recent travel Prior similar symptoms: Yes Recent Illness/Hospitalization: Yes PFSH PFSH Medical History Dyspnea Diabetes Sleep apnea Atrial fibrillation Cancer Walker as ambulation aid Arthritis Bladder disease Prostate disease Complete edentulism, class III Gastric reflux CPAP (continuous positive airway pressure) dependence History of pain when walking History of edema History of echocardiogram History of stress test Cardiology follow-up encounter Blindness Bladder cancer Restrictive airway disease Morbid obesity Pneumonia due to COVID-19 virus Left lower lobe pneumonia Acute respiratory failure with hypoxia Wears hearing aid Wears glasses Insulin dependent diabetes mellitus Psoriasis High cholesterol Restless legs Back pain Injury of back Dietary restriction Former smoker Shortness of breath on exertion Hypertension Right bundle branch 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 Nonobstructive atherosclerosis of coronary artery Obesity BPH (benign prostatic hyperplasia) Hyperlipidemia Essential (primary) hypertension Atrial fibrillation with RVR (02/05/21) Home Medications ?Medication ?Instructions ?Recorded ?Last Taken ?Type simvastatin 40 mg tablet 40 mg PO QHS cholesterol 04/21/15 Unknown History apixaban 5 mg tablet (Eliquis) 5 mg PO BID #180 tabs 02/22/21 05/03/24 Rx aspirin 81 mg tablet,delayed 81 mg PO DAILY #90 tabs 02/22/21 04/30/24 Rx release carvedilol 25 mg tablet 25 mg PO BID #180 tabs 02/22/21 05/07/24 09:30 Rx losartan 100 1 tab PO DAILY 06/23/21 Unknown History mg-hydrochlorothiazide 12.5 mg tablet insulin lispro 100 unit/mL 26 unit subcut TID diabetes 10/24/21 Unknown History subcutaneous pen (Humalog KwikPen (U-100) Insulin) metformin 500 mg tablet,extended 1,000 mg PO BID 10/24/21 Unknown History release 24 hr albuterol sulfate 90 mcg/actuation 1 inh inhalation Q6H PRN SOB #8.5 11/30/21 Unknown Rx aerosol inhaler grams colestipol 1 gram tablet 1 g PO DAILY 01/30/22 Unknown History finasteride 5 mg tablet 5 mg PO DAILY 10/27/22 Unknown History NUVOFLEX 1 cap PO DAILY 09/22/23 Unknown History famotidine 20 mg tablet 20 mg PO BID 09/22/23 05/07/24 09:30 History insulin glargine 100 unit/mL (3 90 unit subcut QHS 09/22/23 Unknown History mL) subcutaneous pen (Basaglar KwikPen U-100 Insulin) flecainide 150 mg tablet 150 mg PO Q12H 10/24/23 05/07/24 09:30 History turmeric root extract 500 mg 1,000 mg PO DAILY 10/24/23 Unknown History capsule diltiazem HCl 120 mg 120 mg PO DAILY 06/08/24 Unknown History capsule,extended release 24 hr (Cartia XT) tamsulosin 0.4 mg capsule 0.4 mg PO BID 07/10/24 07/09/24 History nitrofurantoin 100 mg PO Q12H 3 days #6 caps 07/11/24 Unknown Rx monohydrate/macrocrystals 100 mg capsule (Macrobid) Allergy/AdvReac Type Severity Reaction Status Date / Time amoxicillin Allergy Rash Verified 07/10/24 03:36 Family History Sister Colon cancer Brother Diabetes Mother Diabetes Heart disease Cancer Father Heart disease Cancer Diabetes Surgical History Hx of right cataract extraction Hx of colonoscopy Hx of transurethral resection of prostate H/O wrist surgery History of left heart catheterization (02/07/21) Hx of umbilical hernia repair Hx of cholecystectomy Status post surgical manipulation of ankle joint H/O hemorrhoidectomy Social History household members: spouse Smoking Status: Former smoker how long ago did patient quit smokin years ago alcohol intake: never substance use type: does not use caffeine: Yes Type: coffee Number of servings: 1 ROS ROS ED ROS Narrative Cough. Shortness of breath. Wheezing. No chest pain or leg swelling. Constitutional Constitutional ED: Denies chills or fever(s) Eyes Eyes: Denies blurry vision ENT ENT ED: Denies ear pain Cardiovascular Cardiovascular: Denies chest pain Respiratory/Chest Respiratory/Chest: Reports cough, dyspnea and dyspnea on exertion; Denies sputum Gastrointestinal Gastrointestinal: Reports diarrhea and nausea; Denies abdominal pain, constipation, melena or vomiting Genitourinary Genitourinary ED: Denies dysuria or hematuria Musculoskeletal Musculoskeletal: Denies arthralgias Integumentary Denies abscess Neurologic Neurologic: Denies headache(s) Psychiatric Psychiatric: Denies anxiety Endocrine Endocrinology: Denies cold intolerance Hematologic/Lymphatic Hematologic/Lymphatic: Denies easy bleeding Allergic/Immunologic Allergic/Immunologic ED: Denies mouth swelling EXAM Physical Exam Narrative Exam Narrative: 79-year-old male vital signs are stable he is afebrile. He does not look septic toxic. On room air his pulse ox is 88% consistent with hypoxia. On 2 L he is 93%. He does not look septic or toxic. H EENT exam unremarkable. Neck nontender JVD. Lungs few scattered wheezes. No rales or rhonchi. Equal symmetrical. Heart regular rate about 70. No murmur. Chest wall nontender. Abdomen soft nontender. Moving all 4 extremities. Calves are nontender with 1+ pitting edema bilaterally. Calves nontender. No cords. Normal ec teacher strength. Normal dorsi plantarflexion. He is awake and alert. Const Vital Signs: 07/22/24 12:15 07/22/24 12:30 07/22/24 12:39 Temperature 96.7 F L Temperature Source Temporal Pulse Rate 74 Respiratory Rate 19 H Respiratory Effort Respiratory Depth Respiratory Pattern Blood Pressure 141/68 H Blood Pressure Mean 92 Pulse Ox 93 88 95 Oxygen Delivery Method Room Air Room Air Nasal Cannula Oxygen Flow Rate (L/min) 3 07/22/24 12:39 07/22/24 13:15 07/22/24 13:45 Temperature Temperature Source Pulse Rate 73 Respiratory Rate 20 H Respiratory Effort Short of Breath Labored Accessory Muscle Use Respiratory Depth Shallow Respiratory Pattern Tachypnea Normal Blood Pressure Blood Pressure Mean Pulse Ox Oxygen Delivery Method Nasal Cannula Nasal Cannula Oxygen Flow Rate (L/min) 3 3 07/22/24 14:15 Temperature Temperature Source Pulse Rate 70 Respiratory Rate 17 Respiratory Effort Respiratory Depth Respiratory Pattern Blood Pressure 162/48 H Blood Pressure Mean 86 Pulse Ox 94 Oxygen Delivery Method Nasal Cannula Oxygen Flow Rate (L/min) 2 Positive well nourished and well developed; Negative for cachectic, contractures or unkempt General Appearance ED: well developed; Negative for unkempt, cachectic, contractures, NAD or pallor Nutritional Appearance: Negative for cachectic HEENT Reports moist mucous membranes atraumatic; Negative for trauma or tenderness Eyes PERRL and EOMs intact bilaterally General Eye ED: Negative for pale conjunctiva Neck no lymphadenopathy, supple, no meningeal signs and no JVD General: Negative for tenderness Resp No normal respiratory effort and No clear to auscultation bilaterally Resp Narrative: Increased respiratory rate. Expiratory wheezes. Prolonged expiratory phase. Auscultation: wheezes; Negative for rales or rhonchi Cardio regular rate, regular rhythm, S1 normal heart sound, S2 normal heart sound and no murmurs Rhythm: Negative for abnormal rhythm GI non-tender, non-distended and no masses Auscultation: normoactive bowel sounds Palpation: soft; Negative for tender, guarding or rebound tenderness present Back/Spine no CVA tenderness and normal to inspection Extremity Negative for normal to inspection Extremity Narrative: Bilateral lower extremities 1+ pitting edema. Patient states this is chronic. General Extremety ED: Yes edema; Negative for tenderness General Extremity: edema Neuro oriented x3 and CN's II-XII intact bilaterally Sensorium / Orientation: alert, oriented to person, oriented to place and oriented to time; Negative for orientation impaired Motor Exam: strength 5/5 throughout Psych mental status grossly normal Appearance: Negative for unkempt Attitude: No agitated Mood & Affect: Negative for depressed Thought Process: No normal thought process Skin no wounds and skin turgor normal General Skin Exam: Negative for jaundice or pallor Lesions: no lesions Rashes: no rashes MDM MDM MDM Narrative Medical decision making narrative: 79-year-old male with shortness of breath and wheezing. He has underlying restrictive lung disease. Clinically this could be respiratory infection versus role pneumonia versus possibly CHF with his lower extremity edema. Cardiac workup. COVID test. Chest x-ray and labs. Treated with DuoNeb and albuterol aerosols and Solu-Medrol IV. Repeat exam at 3:15 PM patient is resting comfortably on oxygen he is 93%. He and I discussed his test results. He is hypoxic without oxygen. He does not have oxygen at home. I think this is a combination of pulmonary edema, CHF and some underlying restrictive lung disease. I will speak to the hospitalist about admission. I written for Lasix. He has already received aerosols and Solu-Medrol. Patient is comfortable with the plan and okay with the admission. History & Record Review Discussion w/independent historian: Patient and Family Additional record(s) reviewed:: Prior inpatient record, Prior outpatient record, Prior ED visit and Prior labs Lab Data Attestation: I reviewed the patient's lab results. Lab results narrative: CBC shows a white count 16.4. H&H 12.6 and 40. Platelets 350. Chemistries show potassium of 3.2. Gap 4. BUN of 32 creatinine 0.9. Glucose 78. Troponin 14. Labs: Laboratory Results - last 24 hr 07/22/24 12:37 WBC 16.4 H RBC 4.73 Hgb 12.6 L Hct 40.3 MCV 85.2 MCH 26.6 L MCHC 31.3 L RDW Std Deviation 43.6 RDW Coeff of Lucia 14.1 Plt Count 350 MPV 10.9 Immature Gran % (Auto) 0.500 Neut % (Auto) 84.7 H Lymph % (Auto) 6.0 L Bath % (Auto) 7.7 Eos % (Auto) 0.9 Baso % (Auto) 0.2 Absolute Neuts (auto) 13.9 H Absolute Lymphs (auto) 0.98 Nucleated RBC % 0 Sodium 139 Potassium 3.2 L Chloride 107 Carbon Dioxide 29.0 Anion Gap 4 L BUN 32 H Creatinine 0.92 Est GFR (MDRD) Af Amer 102 Est GFR (MDRD) Non-Af 84 BUN/Creatinine Ratio 34.7 H Glucose 78 Calcium 9.2 Troponin I High Sens 14 Radiography Chest X-Ray - ED: 1 View, Read by ED Physician, Read by Radiologist, Mediastinum, Bony Structures, Chronic Changes, Cardiomegaly and CHF Diagnostic Testing: Clinical Impression(s) from Imaging Studies Chest X-Ray 07/22/24 13:15 IMPRESSION: Moderate cardiomegaly. Thoracic congestion and CHF. Electronically Signed: Александр Lei MD at 13:34 EST , Chest x-ray, portable, single view shows cardiomegaly with pulmonary edema. No effusion. No obvious pneumonia. Rhythm Strip Rhythm Strip: Sinus Rhythm Rate: 73 Ectopy: None EKG Initial EKG: Attestation: I personally reviewed and interpreted this EKG as follows: Interpretation: Sinus Rhythm and No Acute Injury Pattern Comments: Normal sinus rhythm rate of 70. No acute signs of ME or ischemia. Right bundle branch and left anterior fascicular block. Discharge Plan Triage Chief Complaint: Shortness of Breath ED Provider: Trung Faust Dx/Rx/DC Orders Clinical Impression: Acute dyspnea, History of atrial fibrillation, Hypoxia, Pulmonary edema, History of CAD (coronary artery disease) Prescriptions: No Action Eliquis 5 mg tablet 5 mg PO BID Qty: 180 3RF aspirin 81 mg tablet,delayed release (DR/EC) 81 mg PO DAILY Qty: 90 3RF carvedilol 25 mg tablet 25 mg PO BID Qty: 180 3RF losartan-hydrochlorothiazide 100-12.5 mg tablet 1 tab PO DAILY metformin 500 mg tablet extended release 24 hr 1,000 mg PO BID albuterol sulfate 90 mcg/actuation HFA aerosol inhaler 1 inh INHALATION Q6H PRN (Reason: SOB) Qty: 8.5 6RF flecainide 150 mg tablet 150 mg PO Q12H turmeric root extract 500 mg capsule 1,000 mg PO DAILY simvastatin 40 MG tablet 40 mg PO QHS insulin lispro [Humalog KwikPen Insulin] 100 unit/mL insulin pen 26 unit SUBCUT TID colestipol 1 gram tablet 1 g PO DAILY famotidine 20 mg tablet 20 mg PO BID Patient Comments: take 1 tablet by mouth twice a day insulin glargine [Basaglar KwikPen U-100 Insulin] 100 unit/mL (3 mL) insulin pen 90 unit subcut QHS NUVOFLEX 1 cap PO DAILY diltiazem HCl [Cartia XT] 120 mg capsule,extended release 24hr 120 mg PO DAILY tamsulosin 0.4 mg capsule 0.4 mg PO BID nitrofurantoin monohyd/m-cryst [Macrobid] 100 mg capsule 100 mg PO Q12H 3 Days Qty: 6 0RF Rx Instructions: must administer with a meal/food finasteride 5 mg tablet 5 mg PO DAILY Primary Care Provider: Jeff Subramanian Referrals: Jeff Subramanian MD [Primary Care Provider] - Print Language: Armenian Disposition Disposition: Acute Care Hospital [facility]
[2024-07-22] MEDS: MethylPREDNISolone 125 MG/2 ML Vial IV (13:39)
[2024-07-22] MEDS: Ipratropium/Albuterol Sulfate 3 ML AMPUL.NEB INHALATION (13:40)
[2024-07-22] MEDS: Albuterol 2.5 MG/3 ML VIAL.NEB. INHALATION (13:40)
[2024-07-22 13:48] LABS: Anion Gap 4 (5-15); BUN 32 mg/dL (7-18); BUN/Creat Ratio 34.7 RATIO (10-20); Calcium,Total 9.2 mg/dL (8.5-10.1); Chloride 107 mmol/L (98-107); Creatinine, Serum 0.92 mg/dL (0.70-1.30); EST Glomerular Filtration Rate 84 mL/min (>60); Est Glom Filt Rate - Afr Amer 102 mL/min (>60); Glucose 78 mg/dL (74-106); Potassium 3.2 mmol/L (3.5-5.1); Sodium Level 139 mmol/L (136-145); Troponin-I HS 14 pg/mL (3.0-78.0)
[2024-07-22] MEDS: Furosemide 20 MG/2 ML VIAL IV ×2 (15:16→18:05)
--- NOTE | 2024-07-22 15:56 | PCM.HP.STD ---
HPI - General General Date of Admission: 07/22/24 Date of Service: 07/22/24 Chief Complaint: Shortness of breath HPI Narrative INGRIS BALBUENA, is a 79 M with history of A-fib, sleep apnea, diabetes, bladder cancer with tumor resection, hypertension, chronic diarrhea who presented [facility] ED 07/22/2024 with increased work of breathing. Patient went to his urologist office today who sent him to the ED due to his increased work of breathing, in the ED he had slight elevation of BNP to 108.4 but did have chest x-ray concerning for overload as well as crackles and some peripheral edema. O2 sat 88% and patient placed on 3 L with improvement in saturations. There was initial concern that there may be some wheezing so he was given albuterol and methylprednisone however also given Lasix as he appears fluid overloaded. Hospitalist contacted for admission. Patient evaluated with daughter at bedside, he reports he has been short of breath for years but over the past several days has had increased work of breathing to the point where it is difficult for him to go room to room in his house, at home he was intermittently 88% and he does not wear home O2. Has had a little bit of a dry cough without any production of sputum, has had some bilateral lower extremity swelling more so than usual for him. A little bit of nausea, has had some diarrhea on and off for 4 days however he usually takes colestipol for that and had not taken it due to briefly being constipated. Does have history of CJ per patient and daughter but does not wear CPAP. No history of COPD or asthma. Is supposed to be on Eliquis chronically however this was stopped for tumor resection for his bladder cancer and has not yet been restarted. Patient denies any fevers or chills, denies any acute changes in urination, no other focal or acute complaints [facility] Medical History Dyspnea Diabetes Sleep apnea Atrial fibrillation Cancer Walker as ambulation aid Arthritis Bladder disease Prostate disease Complete edentulism, class III Gastric reflux CPAP (continuous positive airway pressure) dependence History of pain when walking History of edema History of echocardiogram History of stress test Cardiology follow-up encounter Blindness Bladder cancer Restrictive airway disease Morbid obesity Pneumonia due to COVID-19 virus Left lower lobe pneumonia Acute respiratory failure with hypoxia Wears hearing aid Wears glasses Insulin dependent diabetes mellitus Psoriasis High cholesterol Restless legs Back pain Injury of back Dietary restriction Former smoker Shortness of breath on exertion Hypertension Right bundle branch 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 Nonobstructive atherosclerosis of coronary artery Obesity BPH (benign prostatic hyperplasia) Hyperlipidemia Essential (primary) hypertension Atrial fibrillation with RVR (02/05/21) Home Medications ?Medication ?Instructions ?Recorded ?Last Taken ?Type simvastatin 40 mg tablet 40 mg PO QHS cholesterol 04/21/15 Unknown History apixaban 5 mg tablet (Eliquis) 5 mg PO BID blood thinner #180 tabs 02/22/21 05/03/24 Rx aspirin 81 mg tablet,delayed 81 mg PO DAILY #90 tabs 02/22/21 04/30/24 Rx release carvedilol 25 mg tablet 25 mg PO BID heart #180 tabs 02/22/21 05/07/24 09:30 Rx losartan 100 1 tab PO DAILY bp 06/23/21 Unknown History mg-hydrochlorothiazide 12.5 mg tablet insulin lispro 100 unit/mL 26 unit subcut TID diabetes 10/24/21 Unknown History subcutaneous pen (Humalog KwikPen (U-100) Insulin) metformin 500 mg tablet,extended 1,000 mg PO BID blood sugar 10/24/21 Unknown History release 24 hr albuterol sulfate 90 mcg/actuation 1 inh inhalation Q6H PRN SOB #8.5 11/30/21 Unknown Rx aerosol inhaler grams colestipol 1 gram tablet 1 g PO DAILY [facility] 01/30/22 Unknown History finasteride 5 mg tablet 5 mg PO DAILY bph 10/27/22 Unknown History NUVOFLEX 1 cap PO DAILY 09/22/23 Unknown History famotidine 20 mg tablet 20 mg PO BID misti 09/22/23 05/07/24 09:30 History insulin glargine 100 unit/mL (3 90 unit subcut QHS diabete 09/22/23 Unknown History mL) subcutaneous pen (Basaglar KwikPen U-100 Insulin) flecainide 150 mg tablet 150 mg PO Q12H 10/24/23 05/07/24 09:30 History turmeric root extract 500 mg 1,000 mg PO DAILY viatmin 10/24/23 Unknown History capsule diltiazem HCl 120 mg 120 mg PO DAILY heart 06/08/24 Unknown History capsule,extended release 24 hr (Cartia XT) tamsulosin 0.4 mg capsule 0.4 mg PO BID bph 07/10/24 07/09/24 History nitrofurantoin 100 mg PO Q12H 3 days #6 caps 07/11/24 Unknown Rx monohydrate/macrocrystals 100 mg capsule (Macrobid) Allergy/AdvReac Type Severity Reaction Status Date / Time amoxicillin Allergy Rash Verified 07/10/24 03:36 Family History Sister Colon cancer Brother Diabetes Mother Diabetes Heart disease Cancer Father Heart disease Cancer Diabetes Surgical History Hx of right cataract extraction Hx of colonoscopy Hx of transurethral resection of prostate H/O wrist surgery History of left heart catheterization (02/07/21) Hx of umbilical hernia repair Hx of cholecystectomy Status post surgical manipulation of ankle joint H/O hemorrhoidectomy Social History household members: spouse Smoking Status: Former smoker how long ago did patient quit smokin years ago alcohol intake: never substance use type: does not use caffeine: Yes Type: coffee Number of servings: 1 ROS ROS Narrative General: Denies fever/chills HENT: Denies headache EYES: Denies changes in vision Resp: Increased shortness of breath especially on exertion, dry cough Cardiac: Will feel a dull feeling in his chest at times GI: Denies abdominal pain, some chronic diarrhea has had episodes over the past several days due to stopping his colestipol, occasionally gets nausea : Denies changes in urination Extremity: Reports lower extremity swelling bilaterally MSK: Denies weakness Neuro: Denies any numbness/tingling Heme: Denies any bleeding or bruising Skin: Denies rashes Psychiatric: No complaints voiced Vital Signs Vital Signs Vital Signs: 07/22/24 12:15 07/22/24 12:30 07/22/24 12:39 Temperature 96.7 F L Temperature Source Temporal Pulse Rate 74 Respiratory Rate 19 H Respiratory Effort Respiratory Depth Respiratory Pattern Blood Pressure 141/68 H Blood Pressure Mean 92 Pulse Ox 93 88 95 Oxygen Delivery Method Room Air Room Air Nasal Cannula Oxygen Flow Rate (L/min) 3 07/22/24 12:39 07/22/24 13:15 07/22/24 13:45 Temperature Temperature Source Pulse Rate 73 Respiratory Rate 20 H Respiratory Effort Short of Breath Labored Accessory Muscle Use Respiratory Depth Shallow Respiratory Pattern Tachypnea Normal Blood Pressure Blood Pressure Mean Pulse Ox Oxygen Delivery Method Nasal Cannula Nasal Cannula Oxygen Flow Rate (L/min) 3 3 07/22/24 14:15 07/22/24 15:33 07/22/24 15:34 Temperature 97.9 F 98 F Temperature Source Temporal Pulse Rate 70 70 76 Respiratory Rate 17 17 25 H Respiratory Effort Respiratory Depth Respiratory Pattern Blood Pressure 162/48 H 162/48 H 126/86 H Blood Pressure Mean 86 86 99 Pulse Ox 94 94 94 Oxygen Delivery Method Nasal Cannula Nasal Cannula Oxygen Flow Rate (L/min) 2 3 Weight Weight: 148.2 kg Body Mass Index (BMI) 43.1 Physical Exam Narrative General: Alert HEENT: Atraumatic, normocephalic Eyes: Anicteric, normal conjunctiva, extraocular movements grossly intact Neck: Supple Respiratory: Crackles at the bases bilaterally, increased respiratory effort Cardiovascular: Regular rate and rhythm GI: Soft, nontender, nondistended Extremities: Mild bilateral lower extremity edema Musculoskeletal: Moving all extremities Neuro: No overt focal neurological deficits Skin: Patient with rash under abdominal pannus Psych: Cooperative Results Lab / Micro Data 07/22/24 12:37 07/22/24 12:37 Labs: Laboratory Results - last 24 hr 07/22/24 12:37: WBC 16.4 H, RBC 4.73, Hgb 12.6 L, Hct 40.3, MCV 85.2, MCH 26.6 L, MCHC 31.3 L, RDW Std Deviation 43.6, RDW Coeff of Lucia 14.1, Plt Count 350, MPV 10.9, Immature Gran % (Auto) 0.500, Neut % (Auto) 84.7 H, Lymph % (Auto) 6.0 L, [place] % (Auto) 7.7, Eos % (Auto) 0.9, Baso % (Auto) 0.2, Absolute Neuts (auto) 13.9 H, Absolute Lymphs (auto) 0.98, Nucleated RBC % 0, Sodium 139, Potassium 3.2 L, Chloride 107, Carbon Dioxide 29.0, Anion Gap 4 L, BUN 32 H, Creatinine 0.92, Est GFR (MDRD) Af Amer 102, Est GFR (MDRD) Non-Af 84, BUN/Creatinine Ratio 34.7 H, Glucose 78, Calcium 9.2, Troponin I High Sens 14 Micro: Microbiology 07/22/24 13:44 Mucosa - Nose SARS-CoV-2, Influenza & RSV (PCR) - Final Rhythm Strip Rhythm Strip: Sinus Rhythm Rate: 73 Ectopy: None Imaging Radiology Impression Chest X-Ray 07/22/24 13:15 IMPRESSION: Moderate cardiomegaly. Thoracic congestion and CHF. Electronically Signed: Александр Lei MD at 13:34 EST , Assessment & Plan Assessment/Plan (1) Acute dyspnea: PLAN: Plan #Hypoxemia suspected 2/2 fluid overload -Admit to telemetry -BNP 108 however CXR appears congested and pt w/ peripheral edema -Continue IV lasix -Last echo-per cardiology note patient had echo September 2021 with an EF of 65% and subsequent coronary angiogram with mild nonobstructive coronary disease -Repeat echo ordered -Daily weights, I's and O's -Fluid restriction, heart healthy diet -Patient with previous PFTs with mild restrictive disease, albuterol as needed, do not necessarily think patient needs steroids at this time, will diurese -Patient's symptoms were gradual and he does not have any unilateral swelling in his legs, if he does not improve with these measures could always consider workup for PE but with no tachycardia, stable blood pressure, chest x-ray overloaded with BNP mildly elevated from previous feel this is more consistent with fluid overload than PE #Leukocytosis -Unclear etiology, patient without productive cough, no fevers, no identified focal complaints aside from his worsening shortness of breath -COVID-negative, check respiratory panel -Will check UA -Repeat in a.m., will hold off on empiric antibiotics unless source identified or patient develops fever/other concerns for infection # Sleep apnea -Patient reportedly noncompliant with CPAP therapy but per patient and family he does have history of sleep apnea #hx afib -Continue home carvedilol and Cardizem, patient presently normal sinus rhythm -Patient's Eliquis has been on hold and he reports it is still on hold -Flecainide is on home med list and does appear that this had been filled within the past 90 days for 90-day supply, will continue #Hypertension -Continue home medications # Chronic diarrhea -Continue home colestipol -Patient had some intermittent diarrhea over the past 4 days however he had held his colestipol because he ate cheese and was constipated #Type 2 diabetes mellitus -Glucose checks and sliding scale insulin -Will start lower dose of patient's long-acting insulin and can uptitrate as tolerated but will be important to avoid hypoglycemia -Hold metformin #Bladder cancer -s/p resection, awaiting healing for BCG infusion -Follows w/ Dr. Daley #GERD -Continue famotidine #Chronic BPH with obstruction -Continue home medications #DVT ppx: Lovenox subcu twice daily Sara Landry MD Charges/Coding Visit Charges Inpatient E&M: 28935 Init Hosp L2
[2024-07-22 16:01] LABS: BNP,B-Type NATRIURETIC PEPTIDE 108.4 pg/mL (0-100)
--- NOTE | 2024-07-22 16:48 | ECHOCS_ITS ---
Reason For Study: CHF Procedure This was a 2D Doppler, Color Flow transthoracic echocardiogram. The study was technically difficult. Contrast injection was performed. Patient unable to hold still or stay in position for testing. Exam performed portable in patient room. Left Ventricle Mild concentric left ventricular hypertrophy. Normal LV size. The left ventricular ejection fraction is 70 %. Stage 2 diastolic dysfunction. Right Ventricle Normal right ventricle. Atria The left atrium is severely enlarged. Normal right atrium. Mitral Valve Mild mitral annular calcification. Mild (1+) mitral valve insufficiency. Tricuspid Valve Mild tricuspid valve insufficiency. Right ventricular systolic pressure estimated to be 50 mmHg. Aortic Valve Mild diffuse aortic valve calcification. Mild aortic stenosis. Pulmonic Valve The pulmonic valve is not well visualized. Great Vessels Normal sized aortic root. Pericardium/Pleural Trivial pericardial effusion. Medication Diluted definity 6.5ml given slow IV push to enhance endocardial definition. MMode/2D Measurements & Calculations LVIDd: 5.6 cm IVSd: 1.3 cm LVOT diam: 2.1 cm LVIDs: 3.6 cm LVPWd: 1.2 cm RVDd: 3.8 cm FS: 36.0 % LVOT area: 3.5 cm2 Ao root diam: 3.2 cm asc Aorta Diam: 3.3 cm LAV(MOD-bp): 77.1 ml LA dimension: 5.1 cm LAV(MOD-bp) Indexed: 30.4 ml/m2 LAV(MOD-sp2): 72.0 ml LAV(MOD-sp4): 78.2 ml SV(MOD-sp4): 54.7 ml SV(sp4-el): 56.2 ml LVAd ap4: 29.6 cm2 LVLd ap4: 8.1 cm SI(MOD-sp4): 21.6 ml/m2 EDV(MOD-sp4): 91.0 ml EDV(sp4-el): 91.9 ml LVAs ap4: 17.2 cm2 LVLs ap4: 7.0 cm ESV(MOD-sp4): 36.3 ml ESV(sp4-el): 35.7 ml EF(MOD-sp4): 60.1 % EF(sp4-el): 61.1 % LA A4 area: 25.7 cm2 RA A4 area: 25.2 cm2 TAPSE: 2.2 cm Time Measurements MV dec time: 0.21 sec Doppler Measurements & Calculations MV E max spenser: 116.5 cm/sec Lat Peak E' Spenser: 6.9 cm/sec Med Peak E' Spenser: 6.1 cm/sec MV A max spenser: 73.5 cm/sec E/E' lat: 16.8 E/E' med: 19.1 MV E/A: 1.6 MV V2 max: 140.6 cm/sec MV P1/2t max spenser: 140.9 cm/sec Ao V2 max: 232.5 cm/sec MV max P.0 mmHg MV P1/2t: 80.0 msec Ao max P.6 mmHg MV V2 mean: 71.1 cm/sec MV dec slope: 515.7 cm/sec2 Ao V2 mean: 160.6 cm/sec MV mean P.6 mmHg MVA(P1/2t): 2.7 cm2 Ao mean P.7 mmHg MV V2 VTI: 36.0 cm Ao V2 VTI: 51.3 cm MVA(VTI): 2.6 cm2 AV (velocity ratio): 0.52 ANA(I,D): 1.8 cm2 ANA(V,D): 1.8 cm2 LV V1 max: 121.3 cm/sec MR max spenser: 550.5 cm/sec SV(LVOT): 93.7 ml LV V1 max P.9 mmHg MR max P.3 mmHg LV V1 mean P.0 mmHg LV V1 mean: 80.6 cm/sec LV V1 VTI: 26.5 cm PA V2 max: 128.9 cm/sec TR max spenser: 294.1 cm/sec PA max PG (full): 2.2 mmHg TR max P.6 mmHg ECHO/Echo Complete W/ Contrast Interpretation Summary The left ventricular ejection fraction is 70 %. Stage 2 diastolic dysfunction. The left atrium is severely enlarged. Mild (1+) mitral valve insufficiency. Mild tricuspid valve insufficiency. Right ventricular systolic pressure estimated to be 50 mmHg. Mild aortic stenosis. Ordering Physician: Sara Landry Performed By: Clif Higuera and Student
[2024-07-22] MEDS: Potassium Chloride Oral Tablet 20 MEQ 60 MEQ PO (18:04)
[2024-07-22] MEDS: 0.9% Saline Lock 10 ML Syringe IV ×2 (18:05→20:13)
[2024-07-22 18:17] LABS: Bedside Glucose 206 mg/dL (74-106)
[2024-07-22] MEDS: Carvedilol 25 MG Tablet PO (20:20)
[2024-07-22] MEDS: Atorvastatin Calcium 20 MG Tablet PO (20:20)
[2024-07-22] MEDS: Famotidine 20 MG Tablet PO (20:20)
[2024-07-22] MEDS: Flecainide 150 MG Tablet PO (20:20)
[2024-07-22] MEDS: Tamsulosin HCl 0.4 MG Capsule PO (20:20)
[2024-07-22] MEDS: Nystatin Ointment 1 APPLIC TOPICAL (20:21)
[2024-07-22] MEDS: Nystatin Powder 15gm Bottle 1 APPLIC TOPICAL (20:23)
[2024-07-22] MEDS: Insulin Lispro 100 UNIT/ML INSULN.PEN SC (20:27)
[2024-07-22] MEDS: Insulin Glargine-YFGN 100 UNIT/ML Pen 60 UNIT SC (20:29)
[2024-07-22 21:00] LABS: Bedside Glucose 370 mg/dL (74-106)
[2024-07-22 21:29] LABS: Mucous, Urine 0 SEEN /hpf (<or=2+)
[2024-07-22 21:37] LABS: Color, Urine Yellow (Yellow); Glucose, Dipstick Normal (Normal); Ketone-Dipstick Negative (Negative); Leukocyte Esterase-Dipstick 25 /ul (Negative); Nitrite-Dipstick Negative (Negative); Occult Blood-Urine Negative /ul (Negative); Protein-Dipstick Negative (Negative); Urine Bilirubin Dipstick Negative (Negative); Urine Clarity Clear (Clear); Urine Urobilinogen Normal (Normal)
[2024-07-22 21:58] LABS: Red Blood Cells-Urine 0-5 SEEN /hpf (0-5); White Blood Cells 0-5 SEEN /hpf (0-5)
[2024-07-22 22:01] LABS: Bacteria RARE /hpf (None Seen); Squamous Epithelial Cells - UA 0-5 SEEN /hpf (0-5)
[2024-07-23 04:00] VITALS: BP 145/74; PULSE 78; RESP 18; TEMP 36.3; O2SAT 96
[2024-07-23 05:25] VITALS: BMI 39.0
[2024-07-23 05:26] LABS: Absolute Lymphocyte Count 0.66 X10^3/uL (0.83-4.51); Absolute Neutrophil Count 10.7 X10^3/uL (2.0-7.7); Basophil# 0.01 X10^3/uL; Basophil% 0.1 % (0-1); Hematocrit 37.3 % (40-54); Hemoglobin 11.7 g/dL (13.0-16.5); Lymphocyte # 0.66 X10^3/ul (0.83-4.51); Lymphocyte % 5.6 % (19-41); Mean Corp Hgb Conc 31.4 g/dL (32-36); Mean Corpuscular Hgb 26.4 pg (27.0-32.0); Mean Platelet Vol. 10.6 fl (6.2-12.0); Monocyte# 0.41 X10^3/uL; Monocyte% 3.5 % (0-10); NRBC Flagged by Analyzer 0 % (0-5); Neutrophil # 10.71 X10^3/uL (2.7-7.7); Neutrophil % 90.3 % (47-70); Platelet Count 339 K/mm3 (150-450); RBC Distribution Width SD 43.2 fl (35.1-43.9); Red Blood Count 4.44 M/mm3 (4.6-6.2); White Blood Count 11.9 K/mm3 (4.4-11.0)
[2024-07-23] MEDS: Nystatin Ointment 1 APPLIC TOPICAL ×3 (05:31→21:37)
[2024-07-23] MEDS: Insulin Lispro 100 UNIT/ML INSULN.PEN SC ×4 (05:32→21:33)
[2024-07-23 06:36] LABS: Anion Gap 7 (5-15); BUN 31 mg/dL (7-18); BUN/Creat Ratio 28.7 RATIO (10-20); Chloride 103 mmol/L (98-107); Cholesterol 114 mg/dL (200); Creatinine, Serum 1.08 mg/dL (0.70-1.30); EST Glomerular Filtration Rate 70 mL/min (>60); Est Glom Filt Rate - Afr Amer 85 mL/min (>60); Estimated Creatinine Clearance 78.41 ml/min; Glucose 330 mg/dL (74-106); High Density Lipoprotein 47 mg/dL; Potassium 3.9 mmol/L (3.5-5.1); Sodium Level 137 mmol/L (136-145); Triglycerides 57 mg/dL; Very Low Density Lipoprotein 11 mg/dL (5-40)
[2024-07-23 07:16] LABS: Bedside Glucose 301 mg/dL (74-106)
[2024-07-23 07:22] VITALS: O2SAT 96
--- NOTE | 2024-07-23 08:55 | PN.HOSP_ITS ---
Reason for Visit Reason for Visit: Shortness of breath Subjective Subjective Mr. Alarcon patient is a 79-year-old white male who presents emergency department at [facility] on 07/22/2024 with a chief complaint of shortness of breath and increased work of breathing. Daughter reported on admission that he has been short of breath for years but over the last several days he had a significant increase in his work of breathing to the point where is difficult for him to go from room to room. They measured his oxygen saturation at home and intermittently was 88%. He does not wear oxygen at home. A small amount of a dry cough was reported with no sputum production and he has had lower extremity edema that his family reported that was greater than his baseline. He is on Eliquis chronically for atrial fibrillation however it was recently held due to tumor resection with bladder cancer and has not yet been reinitiated. He does also have a diagnosis of obstructive sleep apnea but is not compliant with CPAP. Vital signs on presentation demonstrated temperature of 96.7, heart rate 74, respiratory rate 19, blood pressure 141/68, and pulse ox was 88% on room air with improvement to 95% on 3 L nasal cannula. CBC on presentation showed a leukocytosis with white count of 16.4, mild stable anemia with a hemoglobin of 12.6 and a left shift with an 84.7% neutrophilia. Chemistry panel showed normal electrolytes and baseline renal function. Troponin was 14 and BNP was 108.4. Lipid panel was obtained and his total cholesterol is 114, LDL 56, HDL 47 and triglycerides 57. COVID/flu/RSV was unremarkable. Respiratory viral panel was within normal limits. Chest x-ray showed moderate cardiomegaly with thoracic congestion and CHF. He was admitted to the telemetry floor and treated for suspected fluid overload with IV Lasix, daily I's and O's and weights, fluid restriction and repeat echocardiogram was ordered. Patient states he is feeling much better today. Feels like his breathing is better overall. Denies any complaints at this time. Is currently negative almost 2 L and his weight is down about 2.5 kg. Objective Data Objective Data Vital Signs: Vital Signs Temp Pulse Resp BP Pulse Ox O2 Del Method O2 Flow Rate 97.4 F L 78 18 145/74 H 96 Nasal Cannula 3 07/23/24 04:00 07/23/24 04:00 07/23/24 04:00 07/23/24 04:00 07/23/24 04:00 07/23/24 04:00 07/23/24 04:00 Oxygen Flow Rate (L/min) 3 Oxygen Delivery Method Nasal Cannula Weight: 134.2 kg Body Mass Index (BMI) 39.0 Intake & Output: Intake and Output for Last 24 Hours 07/21/24 07/22/24 07/23/24 23:59 23:59 23:59 Intake Total 240 / 490 450 / 450 Output Total 1450 / 1450 0 / 0 Balance -1210 / -960 450 / 450 Lab / Micro Data 07/23/24 04:45 07/23/24 04:45 Labs: Laboratory Results - last 24 hr 07/22/24 12:37: WBC 16.4 H, RBC 4.73, Hgb 12.6 L, Hct 40.3, MCV 85.2, MCH 26.6 L , MCHC 31.3 L, RDW Std Deviation 43.6, RDW Coeff of Lucia 14.1, Plt Count 350, MPV 10.9, Immature Gran % (Auto) 0.500, Neut % (Auto) 84.7 H, Lymph % (Auto) 6.0 L, [place] % (Auto) 7.7, Eos % (Auto) 0.9, Baso % (Auto) 0.2, Absolute Neuts (auto) 13.9 H, Absolute Lymphs (auto) 0.98, Nucleated RBC % 0, Sodium 139, Potassium 3.2 L, Chloride 107, Carbon Dioxide 29.0, Anion Gap 4 L, BUN 32 H, Creatinine 0.92, Est GFR (MDRD) Af Amer 102, Est GFR (MDRD) Non-Af 84, BUN/Creatinine Ratio 34.7 H, Glucose 78, Calcium 9.2, Troponin I High Sens 14, B-Natriuretic Peptide 108.4 H 07/22/24 16:57: Urine Color Yellow, Urine Clarity Clear, Urine pH 6.0, Ur Specific [place] 1.010, Urine Protein Negative, Urine Glucose (UA) Normal, Urine Ketones Negative, Urine Occult Blood Negative, Urine Nitrite Negative, Urine Bilirubin Negative, Urine Urobilinogen Normal, Ur Leukocyte Esterase 25 H, Urine RBC 0-5 SEEN, Urine WBC 0-5 SEEN, Ur Squamous Epith Cells 0-5 SEEN, Urine Bacteria RARE, Urine Mucus 0 SEEN 07/22/24 17:04: POC Glucose 206 H 07/22/24 20:25: POC Glucose 370 H 07/23/24 04:45: WBC 11.9 H, RBC 4.44 L, Hgb 11.7 L, Hct 37.3 L, MCV 84.0, MCH 26.4 L, MCHC 31.4 L, RDW Std Deviation 43.2, RDW Coeff of Lucia 14.0, Plt Count 339, MPV 10.6, Immature Gran % (Auto) 0.500, Neut % (Auto) 90.3 H, Lymph % (Auto) 5.6 L, [place] % (Auto) 3.5, Eos % (Auto) 0.0, Baso % (Auto) 0.1, Absolute Neuts (auto) 10.7 H, Absolute Lymphs (auto) 0.66 L, Nucleated RBC % 0, Sodium 137, Potassium 3.9, Chloride 103, Carbon Dioxide 27.0, Anion Gap 7, BUN 31 H, Creatinine 1.08, Estim Creat Clear Calc 78.41, Est GFR (MDRD) Af Amer 85, Est GFR (MDRD) Non-Af 70, BUN/Creatinine Ratio 28.7 H, Glucose 330 H, Calcium 9.0, Magnesium 2.0, Triglycerides 57, Cholesterol 114, LDL Cholesterol 56, VLDL Cholesterol 11, HDL Cholesterol 47 07/23/24 05:28: POC Glucose 301 H Micro: Microbiology 07/22/24 19:55 Mucosa - Nasopharyngeal Respiratory Panel (PCR) - Final 07/22/24 13:44 Mucosa - Nose SARS-CoV-2, Influenza & RSV (PCR) - Final Radiography Diagnostic Testing: Radiology Impression Chest X-Ray 07/22/24 13:15 IMPRESSION: Moderate cardiomegaly. Thoracic congestion and CHF. Electronically Signed: Александр Lei MD at 13:34 EST , Rhythm Strip Rhythm Strip: Sinus Rhythm Rate: 73 Ectopy: None Physical Exam Const alert, oriented x3, no apparent distress and well nourished; Negative for average body habitus or healthy appearing Constitutional Narrative: Morbidly obese, white male, sitting up in a chair at the bedside, dozing off while watching television, awakens easily and interacts appropriately, appears comfortable, nontoxic, currently stable on 2 L nasal cannula HEENT head/scalp atraumatic and moist oral mucous membranes HEENT Narrative: Mallampati 3-4, no thrush, moderate hearing loss Resp normal respiratory effort, no retractions, no use of accessory muscles and clear to auscultation bilaterally Resp Narrative: Diminished but clear, distant due to body habitus Auscultation: Negative for rales, rhonchi or wheezes Cardio regular rate, regular rhythm, S1 normal heart sound, S2 normal heart sound, no rub, no gallops and no clicks; Negative for no murmurs Cardio Narrative: Distant due to body habitus, 2+ systolic murmur loudest at right upper sternal border GI normal to inspection, nondistended, normoactive bowel sounds, soft to palpation and non-tender GI Narrative: Large protuberant abdomen Extremity Extremity Narrative: Trace bilateral lower extremity edema that is pitting in nature, no cyanosis or clubbing, radial and pedal pulses are 2+ bilaterally Neuro oriented x3 and moves all extremities Speech: speech normal Psych affect normal Psych Narrative: Very pleasant, interacts appropriately Assessment & Plan Assessment/Plan (1) Hypoxia: (2) Acute dyspnea: (3) Pulmonary edema: PLAN: Plan Acute hypoxia secondary to CHF of unknown type -Highly suspect this will be HFpEF with possible diastolic dysfunction and suspected RV dysfunction with pulmonary hypertension -Repeat echocardiogram is pending -Patient did have an echo in March 2024 that did show an EF of 56?5%, mild to moderate aortic valve stenosis, and normal RV at that time -Continue Lasix but increase from 40 daily to 40 twice daily IV push -Continue fluid restricted diet -Continue sodium restricted diet -Continue daily weights -Continue supplemental oxygen--> currently on 3 L -Wean as able -Check ambulatory pulse ox prior to discharge -BNP only mildly elevated however given his obesity this is likely more significant -Weight per our documentation July 10, 2024 was 127.2 kg--> current weight is 134.2 kg down from 136.8 kg on presentation. Leukocytosis -Etiology is unclear and infection highly suspected -COVID/flu/respiratory viral panel unremarkable -UA is not consistent with infection -White count has trended down despite steroids being given on admission Mild anemia -Hemoglobin appears to be stable when compared to previous -no further workup -Monitor Hypokalemia -Resolved -Will need to monitor with diuresis DM-2 with hyperglycemia -Marked blood sugar elevation this morning -Hold home oral agents -Patient is a known diabetic at baseline -likely related to steroid dosing yesterday in the emergency department should trend down as steroid wears off -Will hold off any insulin adjustments for now -Continue basal insulin 60 units at bedtime -Continue prandial insulin 26 units 3 times daily -SSI -Accu-Cheks as ordered CJ -Noncompliant at baseline -monitor overnight sats Paroxysmal atrial fibrillation -continue home carvedilol -Continue home Cardizem -continue home flecainide -Anticoagulation on hold due to recent bladder surgery -Restart as directed by urologist Essential hypertension/hyperlipidemia -Continue home statin -Continue home beta-salvador -continue home calcium channel salvador Overactive bladder -Continue home Solifenacin BPH with obstruction -Home Flomax on hold Can continue home finasteride -Ongoing outpatient follow-up with urology Bladder cancer -Status post resection -Awaiting healing for initiation of BCG infusion -Follows as an outpatient with Dr. Thuy CARO -Continue famotidine Obesity -BMI 39 -recommend weight loss -complicates treatment, prognosis, outcomes DVT prophylaxis -Lovenox subcu twice daily due to BMI CODE STATUS Full code as verified on admission Charges/Coding Visit Charges Inpatient E&M: 63700 Subs Hosp L2
[2024-07-23 10:00] VITALS: O2SAT 95
--- NOTE | 2024-07-23 10:00 | EKG12_ITS ---
Test Reason : AM EKG Blood Pressure : */* mmHG Vent. Rate : 77 BPM Atrial Rate : 77 BPM P-R Int : 240 ms QRS Dur : 160 ms QT Int : 454 ms P-R-T Axes : 49 -69 43 degrees QTcB Int : 513 ms Sinus rhythm with 1st degree A-V block with occasional Premature ventricular complexes Right bundle branch block Left anterior fascicular block Bifascicular block Abnormal ECG When compared with ECG of 22-Jul-2024 13:20, MANUAL COMPARISON REQUIRED DATA IS UNCONFIRMED Confirmed by Gabriel Lin ([id number]), market editor ENID CLINTON ([id number]) on 07/23/2024 1:10:12 PM Referred By: Confirmed By: Gabriel Lin
[2024-07-23 10:14] VITALS: BP 145/87; PULSE 79; RESP 24; TEMP 36.5; O2SAT 98
[2024-07-23] MEDS: Insulin Lispro 100 UNIT/ML INSULN.PEN 10 UNIT SC ×3 (10:17→16:31)
[2024-07-23] MEDS: Furosemide 40 MG/4 ML Vial IV ×2 (10:18→16:32)
[2024-07-23] MEDS: Carvedilol 25 MG Tablet PO ×2 (10:19→21:36)
[2024-07-23] MEDS: Tamsulosin HCl 0.4 MG Capsule PO ×2 (10:19→21:36)
[2024-07-23] MEDS: Losartan Potassium 100 MG Tablet PO (10:19)
[2024-07-23] MEDS: Nystatin Powder 15gm Bottle 1 APPLIC TOPICAL ×2 (10:20→21:36)
[2024-07-23] MEDS: Colestipol 1 GM TABLET PO (10:20)
[2024-07-23] MEDS: dilTIAZem CD 120 MG Capsule PO (10:20)
[2024-07-23] MEDS: Flecainide 150 MG Tablet PO ×2 (10:20→21:36)
[2024-07-23] MEDS: Finasteride 5 MG Tablet PO (10:20)
[2024-07-23] MEDS: Famotidine 20 MG Tablet PO ×2 (10:20→21:36)
[2024-07-23] MEDS: Cholecalciferol (VIT D3) 25 MCG TABLET (1,000 UNITS) 50 MCG PO (10:35)
[2024-07-23] MEDS: Tolterodine Tartrate 4 MG CAP.SA PO (10:36)
[2024-07-23] MEDS: Aspirin E.C. 81 MG Tablet PO (10:36)
--- NOTE | 2024-07-23 11:00 | CASEMGMT ---
NILDA BELLA Face to Face with patient for initial transition planning/care coordination assessment. RN CM introduced self and role at [facility]. Patient sitting in chair, alert and oriented. Patient willing to participate in assessment and is able to answer all questions appropriately. Care providers, pharmacy, and demographics verified. Strata: 3 PCP: Marilynn Specialists: Rosario, hydrogen cell tender; Thuy, urologist; Preferred Pharmacy: [facility] Insurance: [employer]. Prescription Benefit: yes Living Will/HPOA: yes, daughter Loan Brooks LNOK: daughter Living Arrangements: Patient lives alone in a mobile home with 7 steps and railing x2 to enter the home. Patient states he is independent at home. Transportation: self, daughter DME/HHC: Patient has shower chair, walker, and glucometer at home. No previous HHC or SNF. Will monitor for home oxygen, patient had no preferences for DME agency Patient wishes to discharge home, denies need for home health at this time. Patient states he has no further needs or concerns at this time. CM to follow for discharge planning needs that may arise. Disposition Plan: Patient to discharge home with family support and follow-up plans in place, will monitor for home oxygen. Ella SHINE, RN, CM
[2024-07-23 15:12] LABS: Bedside Glucose 350 mg/dL (74-106)
[2024-07-23 16:00] VITALS: BP 135/69; PULSE 71; RESP 20; TEMP 36.6; O2SAT 96
[2024-07-23] MEDS: 0.9% Saline Lock 10 ML Syringe IV ×2 (16:41→21:43)
[2024-07-23 17:09] LABS: Bedside Glucose 409 mg/dL (74-106)
[2024-07-23 21:30] VITALS: BP 146/68; PULSE 73; RESP 18; TEMP 36.3; O2SAT 94
[2024-07-23] MEDS: Insulin Glargine-YFGN 100 UNIT/ML Pen 60 UNIT SC (21:34)
[2024-07-23] MEDS: Atorvastatin Calcium 20 MG Tablet PO (21:36)
[2024-07-23 22:46] LABS: Bedside Glucose 352 mg/dL (74-106)
[2024-07-24] VITALS (10 sets, daily range): BP systolic 112–148; BP diastolic 55–84; PULSE 63–76; RESP 16–18; TEMP 36.3–36.7; O2SAT 87–97; BMI 39.1
[2024-07-24] MEDS: Insulin Lispro 100 UNIT/ML INSULN.PEN SC ×3 (06:59→18:07)
[2024-07-24] MEDS: Nystatin Ointment 1 APPLIC TOPICAL ×3 (06:59→22:36)
[2024-07-24 07:10] LABS: Absolute Neutrophil Count 8.9 X10^3/uL (2.0-7.7); Basophil# 0.04 X10^3/uL; Basophil% 0.3 % (0-1); Eosinophil# 0.12 X10^3/uL; Hemoglobin 11.5 g/dL (13.0-16.5); Mean Corp Hgb Conc 31.1 g/dL (32-36); Mean Corpuscular Hgb 26.6 pg (27.0-32.0); Mean Corpuscular Volume 85.6 fL (80-94); Mean Platelet Vol. 11.5 fl (6.2-12.0); Monocyte# 1.43 X10^3/uL; Monocyte% 11.4 % (0-10); NRBC Flagged by Analyzer 0 % (0-5); Neutrophil # 8.86 X10^3/uL (2.7-7.7); Neutrophil % 70.7 % (47-70); Platelet Count 302 K/mm3 (150-450); RBC Distribution Width CV 14.1 % (11.6-14.6); RBC Distribution Width SD 43.9 fl (35.1-43.9); Red Blood Count 4.32 M/mm3 (4.6-6.2); White Blood Count 12.5 K/mm3 (4.4-11.0)
[2024-07-24 07:20] LABS: Bedside Glucose 227 mg/dL (74-106)
[2024-07-24 07:59] LABS: Anion Gap 7 (5-15); BUN 38 mg/dL (7-18); BUN/Creat Ratio 41.7 RATIO (10-20); Calcium,Total 8.7 mg/dL (8.5-10.1); Chloride 104 mmol/L (98-107); Creatinine, Serum 0.91 mg/dL (0.70-1.30); EST Glomerular Filtration Rate 85 mL/min (>60); Est Glom Filt Rate - Afr Amer 103 mL/min (>60); Estimated Creatinine Clearance 93.17 ml/min; Glucose 221 mg/dL (74-106); Sodium Level 139 mmol/L (136-145)
[2024-07-24] MEDS: Cholecalciferol (VIT D3) 25 MCG TABLET (1,000 UNITS) 50 MCG PO (08:40)
[2024-07-24] MEDS: Colestipol 1 GM TABLET PO (08:40)
[2024-07-24] MEDS: Tolterodine Tartrate 4 MG CAP.SA PO (08:40)
[2024-07-24] MEDS: Flecainide 150 MG Tablet PO ×2 (08:40→22:36)
[2024-07-24] MEDS: Aspirin E.C. 81 MG Tablet PO (08:40)
[2024-07-24] MEDS: dilTIAZem CD 120 MG Capsule PO (08:40)
[2024-07-24] MEDS: Furosemide 40 MG/4 ML Vial IV ×2 (08:40→18:07)
[2024-07-24] MEDS: Losartan Potassium 100 MG Tablet PO (08:40)
[2024-07-24] MEDS: Famotidine 20 MG Tablet PO ×2 (08:40→22:36)
[2024-07-24] MEDS: Tamsulosin HCl 0.4 MG Capsule PO ×2 (08:40→22:35)
[2024-07-24] MEDS: Carvedilol 25 MG Tablet PO ×2 (08:40→22:34)
[2024-07-24] MEDS: Nystatin Powder 15gm Bottle 1 APPLIC TOPICAL ×2 (08:41→22:36)
[2024-07-24] MEDS: Finasteride 5 MG Tablet PO (08:41)
[2024-07-24] MEDS: 0.9% Saline Lock 10 ML Syringe IV ×2 (08:48→18:13)
[2024-07-24] MEDS: hydrALAZINE 25 MG Tablet PO (08:48)
[2024-07-24] MEDS: Insulin Lispro 100 UNIT/ML INSULN.PEN 10 UNIT SC (09:21)
[2024-07-24] MEDS: Empagliflozin 25 MG Tablet PO (12:45)
[2024-07-24 13:09] LABS: Bedside Glucose 227 mg/dL (74-106)
[2024-07-24] MEDS: Insulin Lispro 100 UNIT/ML INSULN.PEN 26 UNIT SC ×2 (14:15→18:07)
--- NOTE | 2024-07-24 15:36 | CHAPLAIN ---
Type of Pastoral Visit _x__ Initial Visit ___ Follow-up Visit ___ On-call Visit ___ General Patient Visit ___ Spiritual Assessment ___ Family Conference ___ Bereavement ___ Rapid Response ___ Code Blue ___ Other (describe below) Pastoral Care Referral From _x__ Patient ___ Family ___ Nurse ___ Physician ___ Cemetery Keeper ___ Premium Service Representative ___ Other (describe below) Sacrament/Intervention _x__ Active listening ___ Anointing ___ Jewish ___ Bereavement ___ Communion _x__ Stephanie exploration ___ _x__ Life review _x__ Prayer ___ Reconciliation ___ Sacrament of Sick _x__ Supportive presence ___ Wedding ___ Other (describe below) Pastoral Comments patient has been seen before and is welcoming of spiritual care; pt is talkative and expressive relief that he is feeling better since yesterday; pt talks about ongoing changes in health; pt speaks of support of daughter and how they have had vacations together in recent years; pt also openly speaks of his L[employer] stephanie and his study and listening to preachers; pt welcomes presence and prayer for support
--- NOTE | 2024-07-24 16:27 | PN.HOSP_ITS ---
Reason for Visit Reason for Visit: Shortness of breath Subjective Subjective Patient states he is overall feeling much better. Still requires oxygen with ambulation. We did discuss that he may ultimately need oxygen with ambulation at discharge however I would like to try to optimize him little bit better prior to this. He is -4-1/2 L for his hospitalization. Weight is down about 3 kg. Objective Data Objective Data Vital Signs: Vital Signs Temp Pulse Resp BP Pulse Ox O2 Del Method O2 Flow Rate 98.0 F 64 18 112/55 L 92 Room Air 2 07/24/24 12:37 07/24/24 12:37 07/24/24 12:37 07/24/24 12:37 07/24/24 12:37 07/24/24 12:37 07/24/24 08:33 Oxygen Flow Rate (L/min) [ 2 AMBULATING with Oxygen #1] Oxygen Flow Rate (L/min) [ 0 AMBULATING on Room Air] Oxygen Flow Rate (L/min) [At 0 REST on Room Air] Oxygen Flow Rate (L/min) 2 Oxygen Delivery Method Room Air Weight: 134.5 kg Body Mass Index (BMI) 39.1 Intake & Output: Intake and Output for Last 24 Hours 07/22/24 07/23/24 07/24/24 23:59 23:59 23:59 Intake Total 240 / 490 1180 / 1180 0 / 0 Output Total 1450 / 1450 4000 / 4000 450 / 450 Balance -1210 / -960 -2820 / -2820 -450 / -450 Lab / Micro Data 07/24/24 06:04 07/24/24 06:04 Labs: Laboratory Results - last 24 hr 07/23/24 16:22: POC Glucose 409 H 07/23/24 21:31: POC Glucose 352 H 07/24/24 06:04: WBC 12.5 H, RBC 4.32 L, Hgb 11.5 L, Hct 37.0 L, MCV 85.6, MCH 26.6 L, MCHC 31.1 L, RDW Std Deviation 43.9, RDW Coeff of Lucia 14.1, Plt Count 302, MPV 11.5, Immature Gran % (Auto) 0.600, Neut % (Auto) 70.7 H, Lymph % (Auto) 16.0 L, [place] % (Auto) 11.4 H, Eos % (Auto) 1.0, Baso % (Auto) 0.3, A bsolute Neuts (auto) 8.9 H, Absolute Lymphs (auto) 2.00, Nucleated RBC % 0, Sodium 139, Potassium 4.0, Chloride 104, Carbon Dioxide 28.0, Anion Gap 7, BUN 38 H, Creatinine 0.91, Estim Creat Clear Calc 93.17, Est GFR (MDRD) Af Amer 103, Est GFR (MDRD) Non-Af 85, BUN/Creatinine Ratio 41.7 H, Glucose 221 H, Calcium 8.7 07/24/24 06:57: POC Glucose 227 H 07/24/24 12:43: POC Glucose 227 H Micro: Microbiology 07/22/24 19:55 Mucosa - Nasopharyngeal Respiratory Panel (PCR) - Final 07/22/24 13:44 Mucosa - Nose SARS-CoV-2, Influenza & RSV (PCR) - Final Rhythm Strip Rhythm Strip: Sinus Rhythm Rate: 73 Ectopy: None Physical Exam Const alert, oriented x3, no apparent distress and well nourished; Negative for average body habitus or healthy appearing Constitutional Narrative: Morbidly obese, white male, sitting up in a chair at the bedside, daughter at the bedside, appears comfortable, nontoxic, currently on room air at rest HEENT head/scalp atraumatic and moist oral mucous membranes HEENT Narrative: Mallampati 3-4, no thrush Resp normal respiratory effort, no retractions, no use of accessory muscles and clear to auscultation bilaterally Resp Narrative: Diminished but clear, distant due to body habitus Auscultation: Negative for rales, rhonchi or wheezes Cardio regular rate, regular rhythm, S1 normal heart sound, S2 normal heart sound, no rub, no gallops and no clicks; Negative for no murmurs Cardio Narrative: Distant due to body habitus, 2+ systolic murmur loudest at right upper sternal border GI normal to inspection, nondistended, normoactive bowel sounds, soft to palpation and non-tender GI Narrative: Large protuberant abdomen Extremity no clubbing, cyanosis or edema Extremity Narrative: Pedal pulses and radial pulses are 2+, edema has resolved Neuro oriented x3 and moves all extremities Speech: speech normal Psych affect normal Psych Narrative: Very pleasant, interacts appropriately Assessment & Plan Assessment/Plan (1) Hypoxia: (2) Acute dyspnea: (3) Pulmonary edema: PLAN: Plan Acute hypoxia secondary to CHF of unknown type -Highly suspect this will be HFpEF with possible diastolic dysfunction and suspected RV dysfunction with pulmonary hypertension -Echocardiogram showed an EF of 70%, stage II diastolic dysfunction, severe left atrial enlargement, mild tricuspid valve insufficiency and a right ventricular systolic pressure of 50 mmHg with mild -Continue IV Lasix twice daily -Patient is down about 3 kg and negative about 4-1/2 L for the hospital stay thus far -Continue fluid restricted diet -Continue sodium restricted diet -Continue daily weights -Continue supplemental oxygen--> currently on room air at rest but did require oxygen with exertion as he dropped to 86% -Wean as able -Check ambulatory pulse ox prior to discharge--> daughter states he has been dropping to 88% at home with exertion will repeat tomorrow -BNP only mildly elevated however given his obesity this is likely more significant Leukocytosis -Still mildly elevated but no signs of infection and stable -COVID/flu/respiratory viral panel unremarkable -UA is not consistent with infection -White count has trended down despite steroids being given on admission Mild anemia -Remained stable -no further workup -Monitor DM-2 with hyperglycemia -Blood sugars remain elevated -Hold home oral agents -Patient is a known diabetic at baseline -Patient did receive steroids at admission -Continue basal insulin 60 units at bedtime -Increase prandial insulin from 10 units 3 times daily to 26 units 3 times daily -SSI -Accu-Cheks as ordered -Jardiance added and this should be beneficial for both his heart failure and his hyperglycemia -Will continue this at discharge if has insurance benefits for this medication or [facility] CJ -Noncompliant at baseline -Discussed extensively with the patient and his daughter and highly recommend repeat evaluation -Daughter states that he has been evaluated and does have sleep apnea but had not been compliant previously -monitor overnight sats Paroxysmal atrial fibrillation -continue home carvedilol -Continue home Cardizem -continue home flecainide -Anticoagulation on hold due to recent bladder surgery -Per documentation it appears that a restart date of 07/14/2024 was reported so we will go ahead and restart today Essential hypertension/hyperlipidemia -Continue home statin -Continue home beta-salvador -continue home calcium channel salvador Overactive bladder -Continue home Solifenacin BPH with obstruction -Home Flomax on hold -continue home finasteride -Ongoing outpatient follow-up with urology Bladder cancer -Status post resection -Awaiting healing for initiation of BCG infusion -Follows as an outpatient with Dr. Daley GERD -Continue famotidine Obesity -BMI 39 -recommend weight loss -complicates treatment, prognosis, outcomes DVT prophylaxis -Discontinue Lovenox as okay to restart home Eliquis CODE STATUS Full code as verified on admission Charges/Coding Visit Charges Inpatient E&M: 95683 Subs Hosp L2
[2024-07-24 17:35] LABS: Bedside Glucose 192 mg/dL (74-106)
[2024-07-24] MEDS: APIXABAN 5 MG TABLET PO (22:34)
[2024-07-24] MEDS: Insulin Glargine-YFGN 100 UNIT/ML Pen 60 UNIT SC (22:35)
[2024-07-24] MEDS: Atorvastatin Calcium 20 MG Tablet PO (22:36)
[2024-07-24 23:05] LABS: Bedside Glucose 108 mg/dL (74-106)
[2024-07-25 03:25] VITALS: BP 125/60; PULSE 70; RESP 16; TEMP 36; O2SAT 92
[2024-07-25 03:58] VITALS: BMI 39.2
[2024-07-25] MEDS: Nystatin Ointment 1 APPLIC TOPICAL ×2 (06:01→12:44)
[2024-07-25 08:02] LABS: Absolute Lymphocyte Count 2.18 X10^3/uL (0.83-4.51); Absolute Neutrophil Count 9.3 X10^3/uL (2.0-7.7); Basophil# 0.05 X10^3/uL; Basophil% 0.4 % (0-1); Eosinophil# 0.32 X10^3/uL; Eosinophils% 2.4 % (0-5); Hematocrit 38.3 % (40-54); Hemoglobin 12.3 g/dL (13.0-16.5); Lymphocyte # 2.18 X10^3/ul (0.83-4.51); Lymphocyte % 16.4 % (19-41); Mean Corp Hgb Conc 32.1 g/dL (32-36); Mean Corpuscular Hgb 26.6 pg (27.0-32.0); Mean Corpuscular Volume 82.9 fL (80-94); Mean Platelet Vol. 10.9 fl (6.2-12.0); Monocyte# 1.39 X10^3/uL; Monocyte% 10.5 % (0-10); NRBC Flagged by Analyzer 0 % (0-5); Neutrophil # 9.25 X10^3/uL (2.7-7.7); Neutrophil % 69.5 % (47-70); Platelet Count 360 K/mm3 (150-450); RBC Distribution Width CV 14.1 % (11.6-14.6); RBC Distribution Width SD 42.3 fl (35.1-43.9); Red Blood Count 4.62 M/mm3 (4.6-6.2); White Blood Count 13.3 K/mm3 (4.4-11.0)
[2024-07-25 08:31] VITALS: O2SAT 91
[2024-07-25 08:37] LABS: Anion Gap 8 (5-15); BUN 37 mg/dL (7-18); BUN/Creat Ratio 34.6 RATIO (10-20); Calcium,Total 8.9 mg/dL (8.5-10.1); Chloride 101 mmol/L (98-107); Creatinine, Serum 1.07 mg/dL (0.70-1.30); EST Glomerular Filtration Rate 71 mL/min (>60); Est Glom Filt Rate - Afr Amer 86 mL/min (>60); Glucose 114 mg/dL (74-106); Potassium 3.2 mmol/L (3.5-5.1); Sodium Level 138 mmol/L (136-145)
[2024-07-25 09:31] VITALS: O2SAT 90
[2024-07-25 09:45] VITALS: O2SAT 86; O2SAT 92
[2024-07-25 10:26] VITALS: BP 121/55; PULSE 79; RESP 18; TEMP 36.6; O2SAT 92
[2024-07-25] MEDS: Flecainide 150 MG Tablet PO (10:32)
[2024-07-25] MEDS: Colestipol 1 GM TABLET PO (10:32)
[2024-07-25] MEDS: Tamsulosin HCl 0.4 MG Capsule PO (10:32)
[2024-07-25] MEDS: Empagliflozin 25 MG Tablet PO (10:32)
[2024-07-25] MEDS: Tolterodine Tartrate 4 MG CAP.SA PO (10:32)
[2024-07-25] MEDS: Carvedilol 25 MG Tablet PO (10:32)
[2024-07-25] MEDS: Finasteride 5 MG Tablet PO (10:32)
[2024-07-25] MEDS: dilTIAZem CD 120 MG Capsule PO (10:32)
[2024-07-25] MEDS: APIXABAN 5 MG TABLET PO (10:32)
[2024-07-25] MEDS: Aspirin E.C. 81 MG Tablet PO (10:32)
[2024-07-25] MEDS: Cholecalciferol (VIT D3) 25 MCG TABLET (1,000 UNITS) 50 MCG PO (10:32)
[2024-07-25] MEDS: Famotidine 20 MG Tablet PO (10:32)
[2024-07-25] MEDS: Furosemide 40 MG/4 ML Vial IV (10:32)
[2024-07-25] MEDS: Nystatin Powder 15gm Bottle 1 APPLIC TOPICAL (10:33)
[2024-07-25] MEDS: 0.9% Saline Lock 10 ML Syringe IV (10:39)
[2024-07-25 11:52] LABS: Bedside Glucose 277 mg/dL (74-106)
[2024-07-25] MEDS: Insulin Lispro 100 UNIT/ML INSULN.PEN SC (12:41)
[2024-07-25] MEDS: Insulin Lispro 100 UNIT/ML INSULN.PEN 26 UNIT SC (12:42)
--- NOTE | 2024-07-25 12:49 | PCM.DC.SUM ---
Providers Date of Admission: 07/22/24 Primary Care Physician: Dr. Jeff Subramanian MD Reason For Visit: HYPOXIA, PUMNONARY EDEMA, CHF Diagnosis Discharge Diagnosis (1) Hypoxia: Status: Acute Code(s): R09.02 - Hypoxemia (2) Acute dyspnea: Status: Acute Code(s): R06.00 - Dyspnea, unspecified (3) Pulmonary edema: Status: Acute Code(s): J81.1 - Chronic pulmonary edema Plan Acute hypoxia secondary to CHF of unknown type -Highly suspect this will be HFpEF with possible diastolic dysfunction and suspected RV dysfunction with pulmonary hypertension -Echocardiogram showed an EF of 70%, stage II diastolic dysfunction, severe left atrial enlargement, mild tricuspid valve insufficiency and a right ventricular systolic pressure of 50 mmHg with mild -Continue IV Lasix twice daily -Patient is down about 3 kg and negative about 4-1/2 L for the hospital stay thus far -Continue fluid restricted diet -Continue sodium restricted diet -Continue daily weights -Continue supplemental oxygen--> currently on room air at rest but did require oxygen with exertion as he dropped to 86% -Wean as able -Check ambulatory pulse ox prior to discharge--> daughter states he has been dropping to 88% at home with exertion will repeat tomorrow -BNP only mildly elevated however given his obesity this is likely more significant Leukocytosis -Still mildly elevated but no signs of infection and stable -COVID/flu/respiratory viral panel unremarkable -UA is not consistent with infection -White count has trended down despite steroids being given on admission Mild anemia -Remained stable -no further workup -Monitor DM-2 with hyperglycemia -Blood sugars remain elevated -Hold home oral agents -Patient is a known diabetic at baseline -Patient did receive steroids at admission -Continue basal insulin 60 units at bedtime -Increase prandial insulin from 10 units 3 times daily to 26 units 3 times daily -SSI -Accu-Cheks as ordered -Jardiance added and this should be beneficial for both his heart failure and his hyperglycemia -Will continue this at discharge if has insurance benefits for this medication or Farxiga CJ -Noncompliant at baseline -Discussed extensively with the patient and his daughter and highly recommend repeat evaluation -Daughter states that he has been evaluated and does have sleep apnea but had not been compliant previously -monitor overnight sats Paroxysmal atrial fibrillation -continue home carvedilol -Continue home Cardizem -continue home flecainide -Anticoagulation on hold due to recent bladder surgery -Per documentation it appears that a restart date of 07/14/2024 was reported so we will go ahead and restart today Essential hypertension/hyperlipidemia -Continue home statin -Continue home beta-salvador -continue home calcium channel salvador Overactive bladder -Continue home Solifenacin BPH with obstruction -Home Flomax on hold -continue home finasteride -Ongoing outpatient follow-up with urology Bladder cancer -Status post resection -Awaiting healing for initiation of BCG infusion -Follows as an outpatient with Dr. Thuy CARO -Continue famotidine Obesity -BMI 39 -recommend weight loss -complicates treatment, prognosis, outcomes DVT prophylaxis -Discontinue Lovenox as okay to restart home Eliquis CODE STATUS Full code as verified on admission Medications at Discharge Home Medications simvastatin 40 mg tablet 40 mg PO QHS cholesterol 04/21/15 apixaban 5 mg tablet (Eliquis) 5 mg PO BID blood thinner #180 tabs 02/22/21 aspirin 81 mg tablet,delayed release 81 mg PO DAILY hematuria #90 tabs 02/22/21 carvedilol 25 mg tablet 25 mg PO BID heart #180 tabs 02/22/21 insulin lispro 100 unit/mL subcutaneous pen (Humalog KwikPen (U-100) Insulin) 26 unit subcut TID diabetes 10/24/21 metformin 500 mg tablet,extended release 24 hr 1,000 mg PO BID blood sugar 10/24/21 albuterol sulfate 90 mcg/actuation aerosol inhaler 1 inh inhalation Q6H PRN SOB #8.5 grams 11/30/21 colestipol 1 gram tablet 1 g PO DAILY gen health 01/30/22 finasteride 5 mg tablet 5 mg PO DAILY bph 10/27/22 NUVOFLEX 1 cap PO DAILY arthritis 09/22/23 famotidine 20 mg tablet 20 mg PO BID misti 09/22/23 insulin glargine 100 unit/mL (3 mL) subcutaneous pen (Basaglar KwikPen U-100 Insulin) 60 unit subcut QHS diabete 09/22/23 flecainide 150 mg tablet 150 mg PO Q12H heart 10/24/23 turmeric root extract 500 mg capsule 1,000 mg PO DAILY viatmin 10/24/23 diltiazem HCl 120 mg capsule,extended release 24 hr (Cartia XT) 120 mg PO DAILY heart 06/08/24 tamsulosin 0.4 mg capsule 0.4 mg PO BID bph 07/10/24 cholecalciferol (vitamin D3) 50 mcg (2,000 unit) capsule (Vitamin D3) 2,000 unit PO DAILY supplement 07/22/24 solifenacin 10 mg tablet 10 mg PO DAILY bladder 07/22/24 empagliflozin 25 mg tablet (Jardiance) 25 mg PO DAILY #30 tabs 07/25/24 furosemide 40 mg tablet (Lasix) 40 mg PO DAILY #30 tabs 07/25/24 losartan 100 mg tablet 100 mg PO DAILY #30 tabs 07/25/24 Weight / BMI Weight Weight: 134.7 kg Body Mass Index (BMI) 39.2 ABG / Lab / Microbiology Data 07/25/24 07:05 07/25/24 07:05 Laboratory: Laboratory Results - last 24 hr 07/24/24 12:43: POC Glucose 227 H 07/24/24 17:17: POC Glucose 192 H 07/24/24 22:28: POC Glucose 108 H 07/25/24 07:05: WBC 13.3 H, RBC 4.62, Hgb 12.3 L, Hct 38.3 L, MCV 82.9, MCH 26.6 L, MCHC 32.1, RDW Std Deviation 42.3, RDW Coeff of Lucia 14.1, Plt Count 360, MPV 10.9, Immature Gran % (Auto) 0.800, Neut % (Auto) 69.5, Lymph % (Auto) 16.4 L, [place] % (Auto) 10.5 H, Eos % (Auto) 2.4, Baso % (Auto) 0.4, Absolute Neuts (auto) 9.3 H, Absolute Lymphs (auto) 2.18, Nucleated RBC % 0, Sodium 138, Potassium 3.2 L, Chloride 101, Carbon Dioxide 30.0, Anion Gap 8, BUN 37 H, Creatinine 1.07, Estim Creat Clear Calc 79.30, Est GFR (MDRD) Af Amer 86, Est GFR (MDRD) Non-Af 71, BUN/Creatinine Ratio 34.6 H, Glucose 114 H, Calcium 8.9 07/25/24 11:05: POC Glucose 277 H Microbiology: Microbiology 07/22/24 19:55 Mucosa - Nasopharyngeal Respiratory Panel (PCR) - Final 07/22/24 13:44 Mucosa - Nose SARS-CoV-2, Influenza & RSV (PCR) - Final D/C Instructions Discharge Diet: Low fat / Low cholesterol (Limit fluid intake to 2 L or less daily/try to limit salt intake to 3 g or less daily) and 1800 Calorie Control Diet Discharge Activity: Return to Normal Activity Meaningful Use Info Meaningful Use Meaningful Use Diagnoses (Choose all that apply): None applicable Ischemic Stroke Statin Dosing Therapy Reference: STATIN DOSE THERAPY REFERENCE: * Patients > 75 years receive moderate or high dose statin therapy. * Patients 75 years or YOUNGER should receive HIGH intensity statin dose unless contraindicated. You will be required to document reason for non-treatment if statin daily dose does not meet guidelines. HIGH DOSE STATIN THERAPY DAILY Atorvastatin > than or = to 40 mg Rosuvastatin > than or = to 20 mg Amlodipine + Atorvastatin > than or = to 2.5/40 mg Ezetimibe + Simvastatin 10/80 mg Simvastatin 80mg Discharge Plan Admission Admit Date/Time: 07/22/24 15:56 Primary Reason for Your Visit: Shortness of breath Attending Provider: Miley Rodriguez Primary Care Provider: Jeff Subramanian Consulting Providers: Sara Landry Instructions Additional Instructions / Restrictions: 1. I would highly recommend you follow-up to get a sleep apnea test as I suspect this may be contributing to you retaining extra fluid 2. Please weigh yourself daily in the morning without clothes on and if you gain more than 2 to 3 pounds in a 24-hour period please take the extra dose of Lasix and call the heart doctor's office 3. Limit your fluid intake to 2 L or less daily 4. Please limit your salt intake to 3 g or less daily 5. Please ask the lung doctor or your primary care physician to recheck a basic metabolic profile in the next 5 to 7 days to check your kidney function and electrolytes with the addition of the Lasix 6. You need to wear oxygen of 2 L when you are exerting yourself. No oxygen is required at rest. Discharge Orders/Prescriptions Prescriptions: New Jardiance 25 mg Tablet 25 mg PO DAILY Qty: 30 2RF losartan 100 mg Tablet 100 mg PO DAILY Qty: 30 0RF furosemide [Lasix] 40 mg tablet 40 mg PO DAILY Qty: 30 0RF Continued Eliquis 5 mg tablet 5 mg PO BID Qty: 180 3RF aspirin 81 mg tablet,delayed release (DR/EC) 81 mg PO DAILY Qty: 90 3RF carvedilol 25 mg tablet 25 mg PO BID Qty: 180 3RF metformin 500 mg tablet extended release 24 hr 1,000 mg PO BID albuterol sulfate 90 mcg/actuation HFA aerosol inhaler 1 inh INHALATION Q6H PRN (Reason: SOB) Qty: 8.5 6RF flecainide 150 mg tablet 150 mg PO Q12H turmeric root extract 500 mg capsule 1,000 mg PO DAILY simvastatin 40 MG tablet 40 mg PO QHS insulin lispro [Humalog KwikPen Insulin] 100 unit/mL insulin pen 26 unit SUBCUT TID colestipol 1 gram tablet 1 g PO DAILY famotidine 20 mg tablet 20 mg PO BID Patient Comments: take 1 tablet by mouth twice a day insulin glargine [Basaglar KwikPen U-100 Insulin] 100 unit/mL (3 mL) insulin pen 60 unit subcut QHS NUVOFLEX 1 cap PO DAILY solifenacin 10 mg tablet 10 mg PO DAILY Patient Comments: per daughter hasn't started taking yet; Dr. Daley just added cholecalciferol (vitamin D3) [Vitamin D3] 50 mcg (2,000 unit) capsule 2,000 unit PO DAILY diltiazem HCl [Cartia XT] 120 mg capsule,extended release 24hr 120 mg PO DAILY tamsulosin 0.4 mg capsule 0.4 mg PO BID Patient Comments: per family hasn't started at home as was in & out of hospital though had prev taken during prev hospitalization. finasteride 5 mg tablet 5 mg PO DAILY Discontinued losartan-hydrochlorothiazide 100-12.5 mg tablet 1 tab PO DAILY Referrals / Follow Up: Julianna Craig CNS [Non-Staff] - 07/29/24 11:20 am Halle Pina NP, MALE INFERTILITY SPECIALIST-C [Med Staff - Adv Practice Prof] - (o/p sleep study) Megan Macario MALE INFERTILITY SPECIALIST-C [Med Staff - Adv Practice Prof] - 07/31/24 11:15 am Disposition Disposition (needs filled in before D/C Order can be placed): Home, Self Care Charges/Coding Visit Charges Inpatient E&M: 34515 Disch Hosp >30min
--- NOTE | 2024-07-25 12:58 | PCM.DC.SUM ---
Providers Date of Admission: 07/22/24 Date of Discharge: 07/25/24 Primary Care Physician: Dr. Jeff Subramanian MD Reason For Visit: HYPOXIA, PUMNONARY EDEMA, CHF Diagnosis Discharge Diagnosis (1) Hypoxia: Status: Acute Code(s): R09.02 - Hypoxemia (2) Acute dyspnea: Status: Acute Code(s): R06.00 - Dyspnea, unspecified (3) Pulmonary edema: Status: Acute Code(s): J81.1 - Chronic pulmonary edema Medications at Discharge Home Medications simvastatin 40 mg tablet 40 mg PO QHS cholesterol 04/21/15 apixaban 5 mg tablet (Eliquis) 5 mg PO BID blood thinner #180 tabs 02/22/21 aspirin 81 mg tablet,delayed release 81 mg PO DAILY hematuria #90 tabs 02/22/21 carvedilol 25 mg tablet 25 mg PO BID heart #180 tabs 02/22/21 insulin lispro 100 unit/mL subcutaneous pen (Humalog KwikPen (U-100) Insulin) 26 unit subcut TID diabetes 10/24/21 metformin 500 mg tablet,extended release 24 hr 1,000 mg PO BID blood sugar 10/24/21 albuterol sulfate 90 mcg/actuation aerosol inhaler 1 inh inhalation Q6H PRN SOB #8.5 grams 11/30/21 colestipol 1 gram tablet 1 g PO DAILY gen health 01/30/22 finasteride 5 mg tablet 5 mg PO DAILY bph 10/27/22 NUVOFLEX 1 cap PO DAILY arthritis 09/22/23 famotidine 20 mg tablet 20 mg PO BID misti 09/22/23 insulin glargine 100 unit/mL (3 mL) subcutaneous pen (Basaglar KwikPen U-100 Insulin) 60 unit subcut QHS diabete 09/22/23 flecainide 150 mg tablet 150 mg PO Q12H heart 10/24/23 turmeric root extract 500 mg capsule 1,000 mg PO DAILY viatmin 10/24/23 diltiazem HCl 120 mg capsule,extended release 24 hr (Cartia XT) 120 mg PO DAILY heart 06/08/24 tamsulosin 0.4 mg capsule 0.4 mg PO BID bph 07/10/24 cholecalciferol (vitamin D3) 50 mcg (2,000 unit) capsule (Vitamin D3) 2,000 unit PO DAILY supplement 07/22/24 solifenacin 10 mg tablet 10 mg PO DAILY bladder 07/22/24 empagliflozin 25 mg tablet (Jardiance) 25 mg PO DAILY #30 tabs 07/25/24 furosemide 40 mg tablet (Lasix) 40 mg PO DAILY #30 tabs 07/25/24 losartan 100 mg tablet 100 mg PO DAILY #30 tabs 07/25/24 Hospital Course Operations None Procedures 2-D Echocardiogram, EKG and - (Chest x-ray) Summary of Care Provided Minutes Spent on Discharge: 39 Hospital Course: Mr. Alarcon patient is a 79-year-old white male who presents emergency department at [facility] on 07/22/2024 with a chief complaint of shortness of breath and increased work of breathing. Daughter reported on admission that he has been short of breath for years but over the last several days he had a significant increase in his work of breathing to the point where is difficult for him to go from room to room. They measured his oxygen saturation at home and intermittently was 88%. He does not wear oxygen at home. A small amount of a dry cough was reported with no sputum production and he has had lower extremity edema that his family reported that was greater than his baseline. He is on Eliquis chronically for atrial fibrillation however it was recently held due to tumor resection with bladder cancer and has not yet been reinitiated. He does also have a diagnosis of obstructive sleep apnea but is not compliant with CPAP. Vital signs on presentation demonstrated temperature of 96.7, heart rate 74, respiratory rate 19, blood pressure 141/68, and pulse ox was 88% on room air with improvement to 95% on 3 L nasal cannula. CBC on presentation showed a leukocytosis with white count of 16.4, mild stable anemia with a hemoglobin of 12.6 and a left shift with an 84.7% neutrophilia. Chemistry panel showed normal electrolytes and baseline renal function. Troponin was 14 and BNP was 108.4. Lipid panel was obtained and his total cholesterol is 114, LDL 56, HDL 47 and triglycerides 57. COVID/flu/RSV was unremarkable. Respiratory viral panel was within normal limits. Chest x-ray showed moderate cardiomegaly with thoracic congestion and CHF. He was admitted to the telemetry floor and treated for suspected fluid overload with IV Lasix, daily I's and O's and weights, fluid restriction and repeat echocardiogram was ordered. Echocardiogram was performed on 07/22/2024 and showed a left ventricular ejection fraction of 70% with stage II diastolic dysfunction, severe left atrial enlargement, and a right ventricular systolic pressure of 50 mmHg with mild aortic stenosis. He responded well to IV diuretics. He was about 5 L negative for his hospital stay and lost about 6 to 8 pounds. I highly suspect his volume overload related to HFpEF is from his stage II diastolic dysfunction as well as his elevated right ventricular systolic pressure probably secondary to untreated sleep apnea. I did talk to the patient and his daughter extensively about obtaining a polysomnography in his outpatient and we did schedule an appointment for pulmonary medicine for follow-up to address this. We also added Jardiance to his medications for his heart failure and this should also help with his glycemic control. We discontinued the HCTZ component of his losartan HCTZ combo and kept him on losartan and added Lasix 40 mg daily. This may need to be uptitrated depending on clinical response as an outpatient. I have asked him to check daily weights in the morning without clothes on and keep track of these. 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 I do think if we can get him treated for sleep apnea this will markedly help decrease his right ventricular systolic pressure and his overall lower extremity edema. Prescriptions were sent to local pharmacy prior to discharge. Home O2 testing was performed and I have reviewed this testing. He did need no oxygen at rest but with ambulation his oxygen saturations dropped to 86%. Given the fact that he qualifies for home oxygen equipment with portability due to the fact that he is mobile in the home in the community case management set him up with home oxygen to be utilized with exertion. He is to follow-up with his primary care physician within the next 1 to 2 weeks, cardiology as recommended previously, and pulmonary medicine for assessment for sleep study. Patient was discharged home in stable condition on 07/25/2024. Discharge diagnoses: Acute hypoxia Acute on chronic HFpEF Stage II diastolic dysfunction Elevated right ventricular systolic pressures Physical Exam Narrative Patient states he feels better and wants to go home. Const alert, oriented x3, no apparent distress, no limitations and well nourished; Negative for average body habitus or healthy appearing Constitutional Narrative: Morbidly obese, white male, sitting up in a chair at the bedside, watching television, appears comfortable nontoxic General Appearance: cooperative, comfortable, well kempt and well developed Exam Limitations: no limitations Nutritional Appearance: morbidly obese HEENT normocephalic, head/scalp atraumatic and moist oral mucous membranes HEENT Narrative: Moderate hearing loss, Mallampati 3-4, no thrush, edentulous Eyes EOMs intact bilaterally and conjunctivae normal Eyes Narrative: No scleral icterus Neck no lymphadenopathy and supple Neck Narrative: Neck is short and thick, trachea midline Resp normal respiratory effort, no retractions, no use of accessory muscles and clear to auscultation bilaterally Resp Narrative: Diminished but clear, distant due to body habitus Auscultation: Negative for rales, rhonchi or wheezes Cardio regular rate, regular rhythm, S1 normal heart sound, S2 normal heart sound, no rub, no gallops and no clicks; Negative for no murmurs Cardio Narrative: Distant due to body habitus, 2+ systolic murmur loudest at right upper sternal border GI normal to inspection, nondistended, normoactive bowel sounds, soft to palpation and non-tender GI Narrative: Large protuberant abdomen Extremity Extremity Narrative: Pedal pulses and radial pulses are 2+, trace bilateral lower extremity edema Skin skin turgor normal, no jaundice, no petechiae and no mottling Neuro oriented x3, moves all extremities and no focal motor deficits Speech: speech normal Psych affect normal Psych Narrative: Very pleasant, interacts appropriately Weight / BMI Weight Weight: 134.7 kg Body Mass Index (BMI) 39.2 ABG / Lab / Microbiology Data 07/25/24 07:05 07/25/24 07:05 Laboratory: Laboratory Results - last 24 hr 07/24/24 12:43: POC Glucose 227 H 07/24/24 17:17: POC Glucose 192 H 07/24/24 22:28: POC Glucose 108 H 07/25/24 07:05: WBC 13.3 H, RBC 4.62, Hgb 12.3 L, Hct 38.3 L, MCV 82.9, MCH 26.6 L, MCHC 32.1, RDW Std Deviation 42.3, RDW Coeff of Lucia 14.1, Plt Count 360, MPV 10.9, Immature Gran % (Auto) 0.800, Neut % (Auto) 69.5, Lymph % (Auto) 16.4 L, Dade % (Auto) 10.5 H, Eos % (Auto) 2.4, Baso % (Auto) 0.4, Absolute Neuts (auto) 9.3 H, Absolute Lymphs (auto) 2.18, Nucleated RBC % 0, Sodium 138, Potassium 3.2 L, Chloride 101, Carbon Dioxide 30.0, Anion Gap 8, BUN 37 H, Creatinine 1.07, Estim Creat Clear Calc 79.30, Est GFR (MDRD) Af Amer 86, Est GFR (MDRD) Non-Af 71, BUN/Creatinine Ratio 34.6 H, Glucose 114 H, Calcium 8.9 07/25/24 11:05: POC Glucose 277 H Microbiology: Microbiology 07/22/24 19:55 Mucosa - Nasopharyngeal Respiratory Panel (PCR) - Final 07/22/24 13:44 Mucosa - Nose SARS-CoV-2, Influenza & RSV (PCR) - Final D/C Instructions Discharge Diet: Low fat / Low cholesterol (Limit fluid intake to 2 L or less daily/try to limit salt intake to 3 g or less daily) and 1800 Calorie Control Diet Meaningful Use Info Meaningful Use Meaningful Use Diagnoses (Choose all that apply): None applicable Ischemic Stroke Statin Dosing Therapy Reference: STATIN DOSE THERAPY REFERENCE: * Patients > 75 years receive moderate or high dose statin therapy. * Patients 75 years or YOUNGER should receive HIGH intensity statin dose unless contraindicated. You will be required to document reason for non-treatment if statin daily dose does not meet guidelines. HIGH DOSE STATIN THERAPY DAILY Atorvastatin > than or = to 40 mg Rosuvastatin > than or = to 20 mg Amlodipine + Atorvastatin > than or = to 2.5/40 mg Ezetimibe + Simvastatin 10/80 mg Simvastatin 80mg Discharge Plan Admission Admit Date/Time: 07/22/24 15:56 Primary Reason for Your Visit: Shortness of breath Attending Provider: Miley Rodriguez Primary Care Provider: Jeff Subramanian Consulting Providers: Sara Landry Instructions Additional Instructions / Restrictions: 1. I would highly recommend you follow-up to get a sleep apnea test as I suspect this may be contributing to you retaining extra fluid 2. Please weigh yourself daily in the morning without clothes on and if you gain more than 2 to 3 pounds in a 24-hour period please take the extra dose of Lasix and call the heart doctor's office 3. Limit your fluid intake to 2 L or less daily 4. Please limit your salt intake to 3 g or less daily 5. Please ask the lung doctor or your primary care physician to recheck a basic metabolic profile in the next 5 to 7 days to check your kidney function and electrolytes with the addition of the Lasix 6. You need to wear oxygen of 2 L when you are exerting yourself. No oxygen is required at rest. 7. I did review your discharge paperwork from your last hospitalization with regards to your aspirin and Eliquis. It is okay to restart these and these were continued at the time of your discharge. Discharge Orders/Prescriptions Prescriptions: New Jardiance 25 mg Tablet 25 mg PO DAILY Qty: 30 2RF losartan 100 mg Tablet 100 mg PO DAILY Qty: 30 0RF furosemide [Lasix] 40 mg tablet 40 mg PO DAILY Qty: 30 0RF Continued Eliquis 5 mg tablet 5 mg PO BID Qty: 180 3RF aspirin 81 mg tablet,delayed release (DR/EC) 81 mg PO DAILY Qty: 90 3RF carvedilol 25 mg tablet 25 mg PO BID Qty: 180 3RF metformin 500 mg tablet extended release 24 hr 1,000 mg PO BID albuterol sulfate 90 mcg/actuation HFA aerosol inhaler 1 inh INHALATION Q6H PRN (Reason: SOB) Qty: 8.5 6RF flecainide 150 mg tablet 150 mg PO Q12H turmeric root extract 500 mg capsule 1,000 mg PO DAILY simvastatin 40 MG tablet 40 mg PO QHS insulin lispro [Humalog KwikPen Insulin] 100 unit/mL insulin pen 26 unit SUBCUT TID colestipol 1 gram tablet 1 g PO DAILY famotidine 20 mg tablet 20 mg PO BID Patient Comments: take 1 tablet by mouth twice a day insulin glargine [Basaglar KwikPen U-100 Insulin] 100 unit/mL (3 mL) insulin pen 60 unit subcut QHS NUVOFLEX 1 cap PO DAILY solifenacin 10 mg tablet 10 mg PO DAILY Patient Comments: per daughter hasn't started taking yet; Dr. Daley just added cholecalciferol (vitamin D3) [Vitamin D3] 50 mcg (2,000 unit) capsule 2,000 unit PO DAILY diltiazem HCl [Cartia XT] 120 mg capsule,extended release 24hr 120 mg PO DAILY tamsulosin 0.4 mg capsule 0.4 mg PO BID Patient Comments: per family hasn't started at home as was in & out of hospital though had prev taken during prev hospitalization. finasteride 5 mg tablet 5 mg PO DAILY Discontinued losartan-hydrochlorothiazide 100-12.5 mg tablet 1 tab PO DAILY Referrals / Follow Up: Julianna Craig CNS [Non-Staff] - 07/29/24 11:20 am Megan Macario UNIX ANALYST-C [Med Staff - Adv Practice Prof] - 07/31/24 11:15 am (o/p sleep study) Disposition Disposition (needs filled in before D/C Order can be placed): Home, Self Care Charges/Coding Visit Charges Inpatient E&M: 59847 Disch Hosp >30min
[2024-07-25] MEDS: Potassium Chloride Oral Tablet 20 MEQ 60 MEQ PO (13:08)
--- NOTE | 2024-07-25 14:40 | CASEMGMT ---
NILDA BELLA NOTE: Pt being discharged. Home O2 testing has been completed. Pt qualifies for 2 l/m w/exertion. Script for O2 has been obtained from Dr Rodriguez and sent to [facility] via [employer]. Diego from [employer] aware and to deliver O2 to pt's room. NILDA CM to room. Pt sitting up in chair. Daughter, Loan, @ bedside. They are aware pt qualifies for 2l/m O2 w/exertion. Questions answered and they voice understanding. Pt verifies he has a pulse ox at home and does monitor this. Discussed Pt Link for hospital f/u, CHF. Questions answered. Both pt and daughter interested in referral. Referral order placed. Pt and daughter deny having other discharge needs or concerns. Cj SHINE RN CM
[2024-07-25 15:04] VITALS: BP 128/59; PULSE 71; RESP 18; TEMP 36.6; O2SAT 92
--- NOTE | 2024-07-25 16:32 | PHA.DC.MC.R ---
Pharmacy [facility] has performed discharge medication reconciliation and counseling for this patient. The patient's discharge medication list was reviewed for discrepancies and discrepancies were resolved. The patient was counseled on the following discharge medications and changes in medications for homegoing were reviewed. 1. LASIX 2. JARDIANCE 3. LOSARTAN The Reason for Use, instructions for use, and potential side effects were reviewed for all new medications. The patient's questions regarding all of their medications were answered. The patient was able to verbally demonstrate an understanding of their discharge medications. The patient was counselled by Zeferino galeas PharmD Candidate Medications at Discharge Home Medications simvastatin 40 mg tablet 40 mg PO QHS cholesterol 04/21/15 apixaban 5 mg tablet (Eliquis) 5 mg PO BID blood thinner #180 tabs 02/22/21 aspirin 81 mg tablet,delayed release 81 mg PO DAILY hematuria #90 tabs 02/22/21 carvedilol 25 mg tablet 25 mg PO BID heart #180 tabs 02/22/21 insulin lispro 100 unit/mL subcutaneous pen (Humalog KwikPen (U-100) Insulin) 26 unit subcut TID diabetes 10/24/21 metformin 500 mg tablet,extended release 24 hr 1,000 mg PO BID blood sugar 10/24/21 albuterol sulfate 90 mcg/actuation aerosol inhaler 1 inh inhalation Q6H PRN SOB #8.5 grams 11/30/21 colestipol 1 gram tablet 1 g PO DAILY gen health 01/30/22 finasteride 5 mg tablet 5 mg PO DAILY bph 10/27/22 NUVOFLEX 1 cap PO DAILY arthritis 09/22/23 famotidine 20 mg tablet 20 mg PO BID misti 09/22/23 insulin glargine 100 unit/mL (3 mL) subcutaneous pen (Basaglar KwikPen U-100 Insulin) 60 unit subcut QHS diabete 09/22/23 flecainide 150 mg tablet 150 mg PO Q12H heart 10/24/23 turmeric root extract 500 mg capsule 1,000 mg PO DAILY viatmin 10/24/23 diltiazem HCl 120 mg capsule,extended release 24 hr (Cartia XT) 120 mg PO DAILY heart 06/08/24 tamsulosin 0.4 mg capsule 0.4 mg PO BID bph 07/10/24 cholecalciferol (vitamin D3) 50 mcg (2,000 unit) capsule (Vitamin D3) 2,000 unit PO DAILY supplement 07/22/24 solifenacin 10 mg tablet 10 mg PO DAILY bladder 07/22/24 empagliflozin 25 mg tablet (Jardiance) 25 mg PO DAILY #30 tabs 07/25/24 furosemide 40 mg tablet (Lasix) 40 mg PO DAILY #30 tabs 07/25/24 losartan 100 mg tablet 100 mg PO DAILY #30 tabs 07/25/24
--- NOTE | 2024-07-28 10:11 | CCN.REFER ---
AGREEABLE TO CCN AND PATIENT LINK SERVICES.
--- NOTE | 2024-08-04 09:17 | CCN.REFER ---
HOME VISIT MADE TO SET UP PATIENT LINK DEVICE AND ADMIT INTO CCN. PATIENT HAS CHANGED HIS MIND, AND HE DOES NOT FEEL HE NEEDS DEVICE OR CCN TO MONITOR. PATIENT WAS PLEASANT, BUT HE WAS ADMANT TO [employer] OPERATOR THAT HE IS DECLINING SERVICES. T/C TO PATIENT'S DTR WHO WAS ORIGINALLY AGREEABLE TO SERVICES AND LEFT DETAILED VM MAKING HER AWARE OF PATIENTS DECISION AT SCHEDULED HOME VISIT.
== END 2024-07-25 17:07 | disposition home or self-care (01) | DRG 291 ==
LOC: ED 15:23 → PCU 15:55
PROVIDERS: Admitting Provider Internal Medicine; Emergency Provider Emergency Medicine; PCP Family Medicine; Visit Provider Internal Medicine
DX: I11.0 Hypertensive heart disease with heart failure (principal); I50.33 Acute on chronic diastolic (congestive) heart failure; N13.8 Other obstructive and reflux uropathy; J81.1 Chronic pulmonary edema; I27.20 Pulmonary hypertension, unspecified; C67.9 Malignant neoplasm of bladder, unspecified; D64.9 Anemia, unspecified; E11.65 Type 2 diabetes mellitus with hyperglycemia; I35.0 Nonrheumatic aortic (valve) stenosis; E66.9 Obesity, unspecified; I48.0 Paroxysmal atrial fibrillation; K21.9 Gastro-esophageal reflux disease without esophagitis; I25.10 Atherosclerotic heart disease of native coronary artery without angina pectoris; G47.33 Obstructive sleep apnea (adult) (pediatric); E78.5 Hyperlipidemia, unspecified; E87.6 Hypokalemia; Z79.4 Long term (current) use of insulin; I25.84 Coronary atherosclerosis due to calcified coronary lesion; D72.829 Elevated white blood cell count, unspecified; R19.7 Diarrhea, unspecified; Z79.01 Long term (current) use of anticoagulants; Z11.52 Encounter for screening for COVID-19; Z87.891 Personal history of nicotine dependence; Z80.0 Family history of malignant neoplasm of digestive organs; R09.02 Hypoxemia; Z86.16 Personal history of COVID-19; N32.81 Overactive bladder; Z68.39 Body mass index [BMI] 39.0-39.9, adult; Z79.84 Long term (current) use of oral hypoglycemic drugs; Z79.899 Other long term (current) drug therapy; N40.1 Benign prostatic hyperplasia with lower urinary tract symptoms
CPT/HCPCS: 36415; 71045; 80048; 80061; 81001; 82962; 83735; 83880; 84484; 85025; 87631; 87633; 93005; 93306; 94640; 94668; 97162; 97166; 97530; 97535; 99285; Q9957; A4216; C8929; J1940

== ENCOUNTER → 2024-07-28 | Outpatient (CLI) | payer MEDICARE, SELFPAY ==
[2024-07-28 16:10] LABS: Absolute Lymphocyte Count 1.39 X10^3/uL (0.83-4.51); Absolute Neutrophil Count 7.2 X10^3/uL (2.0-7.7); Basophil# 0.04 X10^3/uL; Basophil% 0.4 % (0-1); Hematocrit 38.9 % (40-54); Hemoglobin 12.1 g/dL (13.0-16.5); Lymphocyte # 1.39 X10^3/ul (0.83-4.51); Lymphocyte % 13.8 % (19-41); Mean Corp Hgb Conc 31.1 g/dL (32-36); Mean Corpuscular Hgb 26.1 pg (27.0-32.0); Mean Platelet Vol. 10.6 fl (6.2-12.0); Monocyte# 1.06 X10^3/uL; Monocyte% 10.6 % (0-10); NRBC Flagged by Analyzer 0 % (0-5); Neutrophil # 7.21 X10^3/uL (2.7-7.7); Neutrophil % 71.8 % (47-70); Platelet Count 321 K/mm3 (150-450); RBC Distribution Width CV 14.1 % (11.6-14.6); RBC Distribution Width SD 42.7 fl (35.1-43.9); Red Blood Count 4.63 M/mm3 (4.6-6.2)
[2024-07-28 16:49] LABS: Vitamin B12 310 pg/mL (211-911)
[2024-07-28 16:51] LABS: Ferritin 27 ng/mL (26-388); Iron 50 ug/dL (65-175); Iron Binding Capacity,Total 397 ug/dL (250-450); PERCENT IRON SATURATION 12.6 % (15.0-55.0)
== END | disposition home or self-care (01) ==
LOC: LAB 15:40
PROVIDERS: PCP Family Medicine; Referring Provider Clinical Nurse Specialist Adult Health; Visit Provider Clinical Nurse Specialist Adult Health
DX: R79.9 Abnormal finding of blood chemistry, unspecified (principal)
CPT/HCPCS: 36415; 82607; 82728; 82746; 83540; 83550; 85025

== ENCOUNTER → 2024-07-31 | Outpatient (CLI) | payer MEDICARE, SELFPAY ==
[2024-07-31 13:18] LABS: Absolute Lymphocyte Count 1.13 X10^3/uL (0.83-4.51); Absolute Neutrophil Count 6.1 X10^3/uL (2.0-7.7); Basophil# 0.03 X10^3/uL; Basophil% 0.4 % (0-1); Eosinophil# 0.22 X10^3/uL; Eosinophils% 2.6 % (0-5); Hemoglobin 11.8 g/dL (13.0-16.5); Lymphocyte # 1.13 X10^3/ul (0.83-4.51); Lymphocyte % 13.3 % (19-41); Mean Corp Hgb Conc 31.1 g/dL (32-36); Mean Corpuscular Hgb 26.3 pg (27.0-32.0); Mean Corpuscular Volume 84.8 fL (80-94); Mean Platelet Vol. 11.4 fl (6.2-12.0); Monocyte# 0.98 X10^3/uL; Monocyte% 11.5 % (0-10); NRBC Flagged by Analyzer 0 % (0-5); Neutrophil # 6.14 X10^3/uL (2.7-7.7); Platelet Count 282 K/mm3 (150-450); RBC Distribution Width CV 14.1 % (11.6-14.6); RBC Distribution Width SD 43.7 fl (35.1-43.9); Red Blood Count 4.48 M/mm3 (4.6-6.2); White Blood Count 8.5 K/mm3 (4.4-11.0)
[2024-07-31 13:38] LABS: Anion Gap 7 (5-15); BUN 22 mg/dL (7-18); BUN/Creat Ratio 17.5 RATIO (10-20); Chloride 107 mmol/L (98-107); Creatinine, Serum 1.26 mg/dL (0.70-1.30); EST Glomerular Filtration Rate 59 mL/min (>60); Est Glom Filt Rate - Afr Amer 71 mL/min (>60); Glucose 119 mg/dL (74-106); Magnesium 2.9 mg/dL (1.6-2.6); Potassium 3.6 mmol/L (3.5-5.1); Sodium Level 141 mmol/L (136-145)
== END | disposition home or self-care (01) ==
LOC: LAB 12:38
PROVIDERS: PCP Family Medicine; Referring Provider Clinical Nurse Specialist Adult Health; Visit Provider Clinical Nurse Specialist Adult Health
DX: I50.20 Unspecified systolic (congestive) heart failure (principal)
CPT/HCPCS: 36415; 80048; 83735; 85025

== ENCOUNTER → 2024-08-11 | Outpatient (CLI) | payer MEDICARE, SELFPAY ==
[2024-08-11 16:35] LABS: Absolute Lymphocyte Count 1.24 X10^3/uL (0.83-4.51); Basophil# 0.04 X10^3/uL; Basophil% 0.4 % (0-1); Eosinophil# 0.24 X10^3/uL; Eosinophils% 2.3 % (0-5); Hematocrit 42.3 % (40-54); Hemoglobin 13.4 g/dL (13.0-16.5); Lymphocyte # 1.24 X10^3/ul (0.83-4.51); Lymphocyte % 11.8 % (19-41); Mean Corp Hgb Conc 31.7 g/dL (32-36); Mean Corpuscular Hgb 26.4 pg (27.0-32.0); Mean Corpuscular Volume 83.3 fL (80-94); Mean Platelet Vol. 11.4 fl (6.2-12.0); Monocyte# 0.98 X10^3/uL; Monocyte% 9.3 % (0-10); NRBC Flagged by Analyzer 0 % (0-5); Neutrophil % 75.7 % (47-70); Platelet Count 241 K/mm3 (150-450); RBC Distribution Width CV 14.5 % (11.6-14.6); RBC Distribution Width SD 43.5 fl (35.1-43.9); Red Blood Count 5.08 M/mm3 (4.6-6.2); White Blood Count 10.6 K/mm3 (4.4-11.0)
[2024-08-11 17:30] LABS: ALB/GLOB Ratio 0.9 RATIO (0.9-2.4); AST(SGOT) 14 U/L (15-37); Alanine Aminotransfer ALT/SGPT 19 U/L (16-61); Albumin, Serum 3.6 g/dL (3.2-5.0); Alkaline Phosphatase 91 U/L (45-117); Anion Gap 8 (5-15); BUN 35 mg/dL (7-18); BUN/Creat Ratio 25.5 RATIO (10-20); Calcium,Total 9.6 mg/dL (8.5-10.1); Chloride 104 mmol/L (98-107); Creatinine, Serum 1.37 mg/dL (0.70-1.30); EST Glomerular Filtration Rate 53 mL/min (>60); Est Glom Filt Rate - Afr Amer 64 mL/min (>60); Globulin 3.9 g/dL (2.2-4.2); Glucose 168 mg/dL (74-106); Magnesium 2.2 mg/dL (1.6-2.6); Potassium 4.2 mmol/L (3.5-5.1); Protein, Total 7.5 g/dL (6.4-8.2); Sodium Level 136 mmol/L (136-145)
== END | disposition home or self-care (01) ==
LOC: LAB 15:46
PROVIDERS: PCP Family Medicine; Referring Provider Nurse Practitioner Family; Visit Provider Nurse Practitioner Family
DX: E87.6 Hypokalemia (principal); I48.0 Paroxysmal atrial fibrillation; I10 Essential (primary) hypertension; I49.3 Ventricular premature depolarization; R53.83 Other fatigue; Z79.01 Long term (current) use of anticoagulants
CPT/HCPCS: 36415; 80053; 83735; 84443; 85025

== ENCOUNTER → 2024-08-25 | Outpatient (CLI) | payer MEDICARE, SELFPAY | END | disposition home or self-care (01) | PROVIDERS: PCP Family Medicine; Referring Provider Nurse Practitioner Family; Visit Provider Nurse Practitioner Family | DX: G47.33 Obstructive sleep apnea (adult) (pediatric) (principal) | CPT/HCPCS: 95810 ==

== ENCOUNTER 2024-09-01 04:37 | Emergency (ER) | payer MEDICARE, SELFPAY ==
[2024-09-01 04:38] VITALS: BP 124/71; PULSE 72; RESP 21; TEMP 36.6; O2SAT 96; BMI 38.7
--- NOTE | 2024-09-01 05:01 | CT_ITS ---
INDICATION: LLQ pain COMPARISON: 07/10/[address] IV Contrast dosage and agent: 100 cc [id number] IV. A radiation dose optimization technique was used for this scan. RADIATION DOSAGE (If Supplied By Facility): CTDIvol/DLP = ( 23.59 ) / ( 1314.09 ) mGy/mGycm FINDINGS: Contrast enhanced serial CT axial images through the abdomen and pelvis with coronal and sagittal reformatted series. PANCREAS: No peripancreatic fat stranding. BOWEL/MESENTERY: No dilated bowel loops. No significant free fluid. No free air. GALLBLADDER: No pericholecystic fat stranding. LIVER/STOMACH: No obvious abnormality. URINARY COLLECTING SYSTEM/ KIDNEYS: No obstructing ureteral calculus. Simple fluid attenuating left renal lesions, likely renal cysts. APPENDIX: Normal caliber appendix. UTERUS/ADNEXA: Unremarkable CT appearance of the uterus and adnexae. LUNG BASES: Unremarkable. BONES: Moderate L5-S1 degenerative disc disease. CT/Abdomen/Pelvis W IV Cont ONLY IMPRESSION: No acute abdominal abnormality is identified, to include no evidence of obstructing ureteral calculus. Electronically Signed: Hayden Ayers MD at 6:51 EST ,
--- NOTE | 2024-09-01 05:01 | EKG12_ITS ---
Test Reason : CP Blood Pressure : */* mmHG Vent. Rate : 72 BPM Atrial Rate : 72 BPM P-R Int : 212 ms QRS Dur : 164 ms QT Int : 446 ms P-R-T Axes : 14 -79 17 degrees QTcB Int : 488 ms Sinus rhythm with 1st degree A-V block Right bundle branch block Left anterior fascicular block Bifascicular block Abnormal ECG Confirmed by ROLAND SAMUEL, MIGUEL ANGEL ([id number]), news videotape editor ENID CLINTON ([id number]) on 09/03/2024 6:29:17 AM Referred By: GRACY Confirmed By: MIGUEL ANGEL WATKINS MD
--- NOTE | 2024-09-01 05:01 | RAD_ITS ---
INDICATION: chest pain EXAMINATION/TECHNIQUE: X-RAY - XR Chest 2 Views COMPARISON: Chest radiograph 07/22/2024. Findings: Frontal and lateral views of the chest. LUNG PARENCHYMA: Streaky bilateral lower lung airspace disease. PLEURA: No pleural effusion. No pneumothorax. HEART/GREAT VESSELS: Cardiomediastinal silhouette is unremarkable. BONES: Osseous structures are unremarkable for age. RAD/Chest PA and Lateral IMPRESSION: Streaky bilateral lower lung airspace disease, to include pneumonia. Recommend follow-up to resolution is neoplastic process is not excluded. Electronically Signed: Hayden Ayers MD at 6:59 EST ,
--- NOTE | 2024-09-01 05:03 | EX.ED.DYSGE1 ---
HPI History of Present Illness Chief Complaint: Chest Pain Informant: patient and family Narrative Narrative: Patient is a 79-year-old male with past medical history of paroxysmal atrial fibrillation currently on Eliquis as well as hypertension hyperlipidemia and diabetes. He states he woke around 230/3 in the morning with left sided chest pain. He states the pain lasted for 15 to 30 minutes but there was no radiation. He states there is no nausea vomiting diaphoresis or shortness of breath associated with this. He states there is been no recent trauma or excessive activity. He does have a history of CAD and was concerned this could be cardiac and therefore presents for evaluation Of note patient states upon arrival to the hospital the pain has completely resolved [facility] Medical History Dyspnea Diabetes Sleep apnea Atrial fibrillation Cancer Walker as ambulation aid Arthritis Prostate disease Complete edentulism, class III Gastric reflux CPAP (continuous positive airway pressure) dependence History of pain when walking History of edema History of echocardiogram History of stress test Cardiology follow-up encounter Blindness Bladder cancer Restrictive airway disease Morbid obesity Pneumonia due to COVID-19 virus Left lower lobe pneumonia Acute respiratory failure with hypoxia Wears hearing aid Wears glasses Insulin dependent diabetes mellitus Psoriasis High cholesterol Restless legs Back pain Injury of back Dietary restriction Former smoker Shortness of breath on exertion Hypertension Right bundle branch 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 Nonobstructive atherosclerosis of coronary artery Obesity BPH (benign prostatic hyperplasia) Hyperlipidemia Essential (primary) hypertension Atrial fibrillation with RVR (02/05/21) Home Medications ?Medication ?Instructions ?Recorded ?Last Taken ?Type apixaban 5 mg tablet (Eliquis) 5 mg PO BID blood thinner #180 tabs 02/22/21 05/03/24 Rx aspirin 81 mg tablet,delayed 81 mg PO DAILY hematuria #90 tabs 02/22/21 04/30/24 Rx release carvedilol 25 mg tablet 25 mg PO BID heart #180 tabs 02/22/21 05/07/24 09:30 Rx insulin lispro 100 unit/mL 26 unit subcut TID diabetes 10/24/21 Unknown History subcutaneous pen (Humalog KwikPen (U-100) Insulin) metformin 500 mg tablet,extended 1,000 mg PO BID blood sugar 10/24/21 Unknown History release 24 hr albuterol sulfate 90 mcg/actuation 1 inh inhalation Q6H PRN SOB #8.5 11/30/21 Unknown Rx aerosol inhaler grams colestipol 1 gram tablet 1 g PO DAILY [facility] 01/30/22 Unknown History finasteride 5 mg tablet 5 mg PO DAILY bph 10/27/22 Unknown History NUVOFLEX 1 cap PO DAILY arthritis 09/22/23 Unknown History famotidine 20 mg tablet 20 mg PO BID misti 09/22/23 05/07/24 09:30 History insulin glargine 100 unit/mL (3 60 unit subcut QHS diabete 09/22/23 Unknown History mL) subcutaneous pen (Basaglar KwikPen U-100 Insulin) turmeric root extract 500 mg 1,000 mg PO DAILY viatmin 10/24/23 Unknown History capsule diltiazem HCl 120 mg 120 mg PO DAILY heart 06/08/24 Unknown History capsule,extended release 24 hr (Cartia XT) tamsulosin 0.4 mg capsule 0.4 mg PO BID bph 07/10/24 07/09/24 History cholecalciferol (vitamin D3) 50 2,000 unit PO DAILY supplement 07/22/24 Unknown History mcg (2,000 unit) capsule (Vitamin D3) solifenacin 10 mg tablet 10 mg PO DAILY bladder 07/22/24 Unknown History empagliflozin 25 mg tablet 25 mg PO DAILY #30 tabs 07/25/24 Unknown Rx (Jardiance) furosemide 40 mg tablet (Lasix) 40 mg PO DAILY #30 tabs 07/25/24 Unknown Rx flecainide 100 mg tablet 100 mg PO Q12H heart #180 tabs 08/13/24 Unknown Rx losartan 50 mg tablet 50 mg PO DAILY #90 tabs 08/13/24 Unknown Rx atorvastatin 20 mg tablet 20 mg PO DAILY 09/01/24 Unknown History cephalexin 500 mg capsule 500 mg PO TID 7 days #21 caps 09/01/24 Unknown Rx isosorbide mononitrate 30 mg 30 mg PO DAILY chest pain 09/01/24 Unknown History tablet,extended release 24 hr losartan 100 1 tab PO DAILY 09/01/24 Unknown History mg-hydrochlorothiazide 12.5 mg tablet Allergy/AdvReac Type Severity Reaction Status Date / Time amoxicillin Allergy Rash Verified 09/01/24 04:42 Family History Sister Colon cancer Brother Diabetes Mother Diabetes Heart disease Cancer Father Heart disease Cancer Diabetes Surgical History Bladder disease Hx of right cataract extraction Hx of colonoscopy Hx of transurethral resection of prostate H/O wrist surgery History of left heart catheterization (02/07/21) Hx of umbilical hernia repair Hx of cholecystectomy Status post surgical manipulation of ankle joint H/O hemorrhoidectomy Social History household members: spouse Smoking Status: Former smoker how long ago did patient quit smokin years ago alcohol intake: never substance use type: does not use caffeine: Yes Type: coffee Number of servings: 1 ROS ROS ED Constitutional Constitutional ED: Denies chills or fever(s) Eyes Eyes: Denies blurry vision or change in vision ENT ENT ED: Denies sore throat Cardiovascular Cardiovascular: Reports chest pain; Denies palpitations or racing heartbeat Respiratory/Chest Respiratory/Chest: Denies cough or dyspnea Gastrointestinal Gastrointestinal: Denies abdominal pain, diarrhea, nausea or vomiting Genitourinary Genitourinary ED: Denies dysuria, hematuria or urinary frequency Musculoskeletal Musculoskeletal: Denies back pain Integumentary Denies rash Neurologic Neurologic: Denies headache(s) Hematologic/Lymphatic Hematologic/Lymphatic: Reports easy bleeding and easy bruising EXAM Physical Exam Const Vital Signs: 09/01/24 04:38 09/01/24 04:44 09/01/24 05:38 Temperature 97.8 F Temperature Source Axillary Pulse Rate 72 70 Respiratory Rate 21 H 16 Respiratory Effort Normal Blood Pressure 124/71 H 114/55 L Blood Pressure Mean 88 74 Pulse Ox 96 96 Oxygen Delivery Method Nasal Cannula Nasal Cannula Oxygen Flow Rate (L/min) 2 2 09/01/24 06:00 09/01/24 06:57 Temperature Temperature Source Pulse Rate 68 68 Respiratory Rate 20 H 19 H Respiratory Effort Blood Pressure 132/50 H 114/72 Blood Pressure Mean 77 86 Pulse Ox 93 97 Oxygen Delivery Method Nasal Cannula Room Air Oxygen Flow Rate (L/min) 2 Positive well nourished, well developed and obese General Appearance ED: well developed; Negative for pallor Nutritional Appearance: obese HEENT HEENT Narrative: Normocephalic atraumatic Eyes PERRL and EOMs intact bilaterally General Eye ED: Negative for scleral icterus Neck supple and no JVD Neck Narrative: No nuchal rigidity or meningeal sign Chest Wall palpation of chest normal Chest Narrative: No reproducible pain with palpation No bony deformity or crepitance No overlying soft tissue changes to suggest trauma or infection Resp normal respiratory effort Resp Narrative: Breath sounds are diminished throughout with faint crackles noted in the bilateral bases No nasal flaring retractions or accessory muscle use Cardio regular rate and regular rhythm Rate: other Other Details: Heart is regular rate and rhythm Radial and carotid pulses are equal and symmetric GI non-distended and no masses GI Narrative: Abdomen is obese soft and nondistended with normal active bowel sounds. There is pain on palpation in the left lower quadrant and voluntary guarding at this site No pulsatile mass or fluid wave Auscultation: normoactive bowel sounds Palpation: soft Back/Spine no CVA tenderness Extremity Extremity Narrative: +2 pitting edema to the bilateral lower extremities that is equal and symmetric and chronic per patient Negative Homans' sign bilaterally Neuro oriented x3, CN's II-XII intact bilaterally and no sensory deficits noted Sensorium / Orientation: alert Psych mental status grossly normal Skin no rashes or lesions noted General Skin Exam: Negative for jaundice or pallor MDM MDM MDM Narrative Medical decision making narrative: Patient arrived to ER with stable vitals and had reported spontaneous improvement of his chest pain from this morning. Differential diagnosis is for acute coronary syndrome versus cardiac dysrhythmia versus lung pathology such as pneumonia pneumothorax or CHF exacerbation. Patient also had pain on physical exam with palpation in the left lower quadrant concerning for potential kidney stone or diverticulitis. Secondary to this a basic workup was obtained as well as a CT scan with IV contrast of the abdomen and pelvis. The patient's EKG was sinus without ischemic changes and similar nature to the EKG from July of this year and his troponins were normal and flat going against acute coronary syndrome. There was potential that the patient could have went into a bout of paroxysmal atrial fibrillation at home but on the monitor and there was no dysrhythmia noted. His urine does show changes concerning for potential infection versus contamination and therefore will be sent for culture and as he is a diabetic with large amount of glucose in the urine I will place him on antibiotics. However he does not have signs of acute kidney injury or urosepsis. CT scan does not show signs of urinary retention or hydronephrosis. The patient's chest x-ray does show CHF changes and the radiology questions bilateral lower airspace disease. However the patient is not coughing he is not febrile he is not requiring an increase above his baseline oxygen and therefore I feel this is most likely CHF and atelectasis and not a secondary infection. Therefore at this time as the patient's EKG is normal sinus without ischemic or STEMI changes he does not have changing troponins and his pain has spontaneously resolved and his workup does not show signs of urosepsis or CANDICE there is no need for further intervention and he is otherwise safe for discharge. History & Record Review Discussion w/independent historian: Patient and Family Lab Data Attestation: I reviewed the patient's lab results. Labs: Laboratory Results - last 24 hr 09/01/24 09/01/24 09/01/24 04:52 05:21 06:56 WBC 11.3 H RBC 5.00 Hgb 13.1 Hct 41.4 MCV 82.8 MCH 26.2 L MCHC 31.6 L RDW Std Deviation 46.0 H RDW Coeff of Lucia 15.3 H Plt Count 301 MPV 11.2 Immature Gran % (Auto) 0.300 Neut % (Auto) 66.4 Lymph % (Auto) 18.2 L Glenn % (Auto) 11.8 H Eos % (Auto) 2.9 Baso % (Auto) 0.4 Absolute Neuts (auto) 7.5 Absolute Lymphs (auto) 2.06 Nucleated RBC % 0 Sodium 138 Potassium 3.6 Chloride 106 Carbon Dioxide 24.0 Anion Gap 7 BUN 32 H Creatinine 1.14 Estim Creat Clear Calc 73.93 Est GFR (MDRD) Af Amer 79 Est GFR (MDRD) Non-Af 66 BUN/Creatinine Ratio 28.1 H Glucose 98 Calcium 9.3 Magnesium 2.2 Troponin I High Sens 10 11 Urine Color Yellow Urine Clarity Cloudy Urine pH 5.0 Ur Specific [place] 1.025 Urine Protein 30 H Urine Glucose (UA) 1000 H Urine Ketones Negative Urine Occult Blood 150 H Urine Nitrite Negative Urine Bilirubin Negative Urine Urobilinogen Normal Ur Leukocyte Esterase 500 H Urine RBC 10-25 SEEN Urine WBC 25-50 SEEN Ur Squamous Epith Cells 5-10 SEEN Urine Bacteria 4+ Urine Mucus 0 SEEN Radiography Diagnostic Testing: Clinical Impression(s) from Imaging Studies Abdomen/Pelvis CT 09/01/24 05:01 IMPRESSION: No acute abdominal abnormality is identified, to include no evidence of obstructing ureteral calculus. Electronically Signed: Hayden Ayers MD at 6:51 EST , ADDENDUM: 09/01/24 0708 IMPRESSION: undefined Chest X-Ray 09/01/24 05:01 IMPRESSION: Streaky bilateral lower lung airspace disease, to include pneumonia. Recommend follow-up to resolution is neoplastic process is not excluded. Electronically Signed: Haydne Ayers MD at 6:59 EST , 2 view chest x-ray as interpreted by the emergency medicine physician reveals mild cardiomegaly and mild vascular congestion consistent with underlying CHF without acute infiltrate pneumothorax or pleural effusion Discharge Plan Triage Chief Complaint: Chest Pain ED Provider: Mani Esquivel Dx/Rx/DC Orders Clinical Impression: Nonspecific chest pain, Congestive heart failure, UTI (urinary tract infection), Essential (primary) hypertension, Insulin dependent diabetes mellitus, Current use of assisted anticoagulation Instructions: Urinary Tract Infections in Men, ED Chest Pain, Uncertain Cause Prescriptions: New cephalexin 500 mg capsule 500 mg PO TID 7 Days Qty: 21 0RF No Action Eliquis 5 mg tablet 5 mg PO BID Qty: 180 3RF aspirin 81 mg tablet,delayed release (DR/EC) 81 mg PO DAILY Qty: 90 3RF carvedilol 25 mg tablet 25 mg PO BID Qty: 180 3RF metformin 500 mg tablet extended release 24 hr 1,000 mg PO BID albuterol sulfate 90 mcg/actuation HFA aerosol inhaler 1 inh INHALATION Q6H PRN (Reason: SOB) Qty: 8.5 6RF turmeric root extract 500 mg capsule 1,000 mg PO DAILY flecainide 100 mg tablet 100 mg PO Q12H Qty: 180 3RF losartan 50 mg tablet 50 mg PO DAILY Qty: 90 3RF insulin lispro [Humalog KwikPen Insulin] 100 unit/mL insulin pen 26 unit SUBCUT TID colestipol 1 gram tablet 1 g PO DAILY famotidine 20 mg tablet 20 mg PO BID Patient Comments: take 1 tablet by mouth twice a day insulin glargine [Basaglar KwikPen U-100 Insulin] 100 unit/mL (3 mL) insulin pen 60 unit subcut QHS NUVOFLEX 1 cap PO DAILY solifenacin 10 mg tablet 10 mg PO DAILY Patient Comments: per daughter hasn't started taking yet; Dr. Daley just added cholecalciferol (vitamin D3) [Vitamin D3] 50 mcg (2,000 unit) capsule 2,000 unit PO DAILY Jardiance 25 mg Tablet 25 mg PO DAILY Qty: 30 2RF furosemide [Lasix] 40 mg tablet 40 mg PO DAILY Qty: 30 0RF diltiazem HCl [Cartia XT] 120 mg capsule,extended release 24hr 120 mg PO DAILY tamsulosin 0.4 mg capsule 0.4 mg PO BID Patient Comments: per family hasn't started at home as was in & out of hospital though had prev taken during prev hospitalization. isosorbide mononitrate 30 mg tablet extended release 24 hr 30 mg PO DAILY atorvastatin 20 mg tablet 20 mg PO DAILY losartan-hydrochlorothiazide 100-12.5 mg tablet 1 tab PO DAILY finasteride 5 mg tablet 5 mg PO DAILY Primary Care Provider: Jeff Subramanian Referrals: Jeff Subramanian MD [Primary Care Provider] - Activity Restrictions/Additional Instructions: Your workup showed no signs of active heart damage. It did show changes consistent with urinary tract infection and therefore take the antibiotic as directed to help resolve this. If you have any further concerns or worsening symptoms please return to the ER for repeat evaluation. Also please continue all of your home medications as directed by your doctor Print Language: [place] Disposition Disposition: Home, Self Care
[2024-09-01 05:09] LABS: Absolute Lymphocyte Count 2.06 X10^3/uL (0.83-4.51); Absolute Neutrophil Count 7.5 X10^3/uL (2.0-7.7); Basophil# 0.05 X10^3/uL; Basophil% 0.4 % (0-1); Eosinophil# 0.33 X10^3/uL; Eosinophils% 2.9 % (0-5); Hematocrit 41.4 % (40-54); Hemoglobin 13.1 g/dL (13.0-16.5); Lymphocyte # 2.06 X10^3/ul (0.83-4.51); Lymphocyte % 18.2 % (19-41); Mean Corp Hgb Conc 31.6 g/dL (32-36); Mean Corpuscular Hgb 26.2 pg (27.0-32.0); Mean Corpuscular Volume 82.8 fL (80-94); Mean Platelet Vol. 11.2 fl (6.2-12.0); Monocyte# 1.33 X10^3/uL; Monocyte% 11.8 % (0-10); NRBC Flagged by Analyzer 0 % (0-5); Neutrophil % 66.4 % (47-70); Platelet Count 301 K/mm3 (150-450); RBC Distribution Width CV 15.3 % (11.6-14.6); White Blood Count 11.3 K/mm3 (4.4-11.0)
--- NOTE | 2024-09-01 05:25 | ED.RN ---
This RN entered room to collect urine sample and change pt into a gown before going to radiology. After changing pt into gown, pt's daughter informed this RN that pt's dexcom had been removed from left upper arm. Daughter stated that's not cool. RN apologized for accident occurring and placed dexcom needle in the sharps bin.
[2024-09-01 05:26] LABS: Mucous, Urine 0 SEEN /hpf (<or=2+)
[2024-09-01 05:27] LABS: Anion Gap 7 (5-15); BUN 32 mg/dL (7-18); BUN/Creat Ratio 28.1 RATIO (10-20); Calcium,Total 9.3 mg/dL (8.5-10.1); Chloride 106 mmol/L (98-107); Creatinine, Serum 1.14 mg/dL (0.70-1.30); EST Glomerular Filtration Rate 66 mL/min (>60); Est Glom Filt Rate - Afr Amer 79 mL/min (>60); Estimated Creatinine Clearance 73.93 ml/min; Glucose 98 mg/dL (74-106); Magnesium 2.2 mg/dL (1.6-2.6); Potassium 3.6 mmol/L (3.5-5.1); Sodium Level 138 mmol/L (136-145); Troponin-I HS 10 pg/mL (3.0-78.0)
[2024-09-01 05:27] LABS: Color, Urine Yellow (Yellow); Glucose, Dipstick 1000 mg/dl (Normal); Ketone-Dipstick Negative (Negative); Leukocyte Esterase-Dipstick 500 /ul (Negative); Nitrite-Dipstick Negative (Negative); Occult Blood-Urine 150 /ul (Negative); Protein-Dipstick 30 mg/dl (Negative); Specific Gravity, Urine 1.025 (1.002-1.030); Urine Bilirubin Dipstick Negative (Negative); Urine Clarity Cloudy (Clear); Urine Urobilinogen Normal (Normal)
[2024-09-01 05:36] LABS: Bacteria 4+ /hpf (None Seen); Red Blood Cells-Urine 10-25 SEEN /hpf (0-5); Squamous Epithelial Cells - UA 5-10 SEEN /hpf (0-5); White Blood Cells 25-50 SEEN /hpf (0-5)
[2024-09-01 05:38] VITALS: BP 114/55; PULSE 70; RESP 16; O2SAT 96
[2024-09-01 06:00] VITALS: BP 132/50; PULSE 68; RESP 20; O2SAT 93
[2024-09-01 06:57] VITALS: BP 114/72; PULSE 68; RESP 19; O2SAT 97
[2024-09-01] MEDS: Ceftriaxone 1 GM/50 ML BAG IV (07:18)
[2024-09-01 07:23] LABS: Troponin-I HS 11 pg/mL (3.0-78.0)
[2024-09-01 07:39] VITALS: BP 101/78; PULSE 65; RESP 18; TEMP 36.8; O2SAT 97
== END 2024-09-01 07:55 | disposition home or self-care (01) ==
PROVIDERS: Emergency Provider Emergency Medicine; PCP Family Medicine; Visit Provider Emergency Medicine
DX: R07.9 Chest pain, unspecified (principal); I50.9 Heart failure, unspecified; I11.0 Hypertensive heart disease with heart failure; I48.0 Paroxysmal atrial fibrillation; E11.9 Type 2 diabetes mellitus without complications; Z79.4 Long term (current) use of insulin; N39.0 Urinary tract infection, site not specified; E78.00 Pure hypercholesterolemia, unspecified; Z87.891 Personal history of nicotine dependence; I25.10 Atherosclerotic heart disease of native coronary artery without angina pectoris; Z79.01 Long term (current) use of anticoagulants; G47.30 Sleep apnea, unspecified; Z99.89 Dependence on other enabling machines and devices; Z79.82 Long term (current) use of aspirin; Z79.899 Other long term (current) drug therapy; Z79.84 Long term (current) use of oral hypoglycemic drugs; N40.0 Benign prostatic hyperplasia without lower urinary tract symptoms; Z98.41 Cataract extraction status, right eye; Z90.49 Acquired absence of other specified parts of digestive tract
CPT/HCPCS: 71046; 74177; 80048; 81001; 83735; 84484; 85025; 87086; 87088; 93005; 96365; 99282; Q9967; A4216

== ENCOUNTER 2024-09-20 15:45 | Emergency (ER) | payer MEDICARE, SELFPAY ==
[2024-09-20] VITALS (10 sets, daily range): BP systolic 114–132; BP diastolic 63–79; PULSE 74–79; RESP 16–25; TEMP 36.8; O2SAT 91–97; BMI 37.8
--- NOTE | 2024-09-20 16:03 | EKG12_ITS ---
Test Reason : CP Blood Pressure : */* mmHG Vent. Rate : 77 BPM Atrial Rate : 77 BPM P-R Int : 226 ms QRS Dur : 164 ms QT Int : 434 ms P-R-T Axes : 12 -82 15 degrees QTcB Int : 491 ms Sinus rhythm with 1st degree A-V block Right bundle branch block Left anterior fascicular block Bifascicular block Abnormal ECG Confirmed by MIGUEL ANGEL WATKINS MD ([id number]), film editor CARLOTA SUTTON ([id number]) on 09/22/2024 7:02:09 AM Referred By: AR/BB Confirmed By: MIGUEL ANGEL WATKINS MD
--- NOTE | 2024-09-20 16:03 | ED.VIS.CHEST ---
HPI History of Present Illness Chief Complaint: Chest Pain Narrative Narrative: 79-year-old male past medical history of coronary artery disease presents via EMS with chest pain that he has had since 830 this morning. He states when he awoke this morning he had little bit of pain that was intermittent throughout the day. He denies any nausea or vomiting, no diaphoresis or shortness of breath. However, prior to arrival he states that the pain on the left side of his chest became very intense. He rated it a 10 out of 10. He called EMS who gave him nitroglycerin and now he states his pain is now 1 out of 10 if present at all. He denies any exacerbating or alleviating factors until he received nitroglycerin. No exertional component. No recent leg swelling. Pain did not go through to his back or radiate. [facility] Medical History Dyspnea Diabetes Sleep apnea Atrial fibrillation Cancer Walker as ambulation aid Arthritis Prostate disease Complete edentulism, class III Gastric reflux CPAP (continuous positive airway pressure) dependence History of pain when walking History of edema History of echocardiogram History of stress test Cardiology follow-up encounter Blindness Bladder cancer Restrictive airway disease Morbid obesity Pneumonia due to COVID-19 virus Left lower lobe pneumonia Acute respiratory failure with hypoxia Wears hearing aid Wears glasses Insulin dependent diabetes mellitus Psoriasis High cholesterol Restless legs Back pain Injury of back Dietary restriction Former smoker Shortness of breath on exertion Hypertension Right bundle branch 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 Nonobstructive atherosclerosis of coronary artery Obesity BPH (benign prostatic hyperplasia) Hyperlipidemia Essential (primary) hypertension Atrial fibrillation with RVR (02/05/21) Home Medications ?Medication ?Instructions ?Recorded ?Last Taken ?Type apixaban 5 mg tablet (Eliquis) 5 mg PO BID blood thinner #180 tabs 02/22/21 05/03/24 Rx aspirin 81 mg tablet,delayed 81 mg PO DAILY hematuria #90 tabs 02/22/21 04/30/24 Rx release carvedilol 25 mg tablet 25 mg PO BID heart #180 tabs 02/22/21 05/07/24 09:30 Rx insulin lispro 100 unit/mL 26 unit subcut TID diabetes 10/24/21 Unknown History subcutaneous pen (Humalog KwikPen (U-100) Insulin) metformin 500 mg tablet,extended 1,000 mg PO BID blood sugar 10/24/21 Unknown History release 24 hr albuterol sulfate 90 mcg/actuation 1 inh inhalation Q6H PRN SOB #8.5 11/30/21 Unknown Rx aerosol inhaler grams finasteride 5 mg tablet 5 mg PO DAILY bph 10/27/22 Unknown History NUVOFLEX 1 cap PO DAILY arthritis 09/22/23 Unknown History famotidine 20 mg tablet 20 mg PO BID misti 09/22/23 05/07/24 09:30 History insulin glargine 100 unit/mL (3 60 unit subcut QHS diabete 09/22/23 Unknown History mL) subcutaneous pen (Basaglar KwikPen U-100 Insulin) turmeric root extract 500 mg 1,000 mg PO DAILY viatmin 10/24/23 Unknown History capsule diltiazem HCl 120 mg 120 mg PO DAILY heart 06/08/24 Unknown History capsule,extended release 24 hr (Cartia XT) tamsulosin 0.4 mg capsule 0.4 mg PO BID bph 07/10/24 07/09/24 History cholecalciferol (vitamin D3) 50 2,000 unit PO DAILY supplement 07/22/24 Unknown History mcg (2,000 unit) capsule (Vitamin D3) solifenacin 10 mg tablet 10 mg PO DAILY bladder 07/22/24 Unknown History empagliflozin 25 mg tablet 25 mg PO DAILY #30 tabs 07/25/24 Unknown Rx (Jardiance) flecainide 100 mg tablet 100 mg PO Q12H heart #180 tabs 08/13/24 Unknown Rx atorvastatin 20 mg tablet 20 mg PO DAILY 09/01/24 Unknown History cephalexin 500 mg capsule 500 mg PO TID 7 days #21 caps 09/01/24 Unknown Rx isosorbide mononitrate 30 mg 30 mg PO DAILY chest pain 09/01/24 Unknown History tablet,extended release 24 hr colestipol 1 gram tablet 1 g PO DAILY PRN gen health 09/03/24 Unknown History furosemide 40 mg tablet (Lasix) 40 mg PO BID #60 tabs 09/03/24 Unknown Rx losartan 25 mg tablet 25 mg PO DAILY #90 tabs 09/03/24 Unknown Rx potassium chloride 20 mEq 20 meq PO BID #60 tabs 09/03/24 Unknown Rx tablet,extended release isosorbide mononitrate 30 mg 30 mg PO DAILY #30 tabs 09/20/24 Unknown Rx tablet,extended release 24 hr Allergy/AdvReac Type Severity Reaction Status Date / Time amoxicillin Allergy Rash Verified 09/20/24 15:49 Family History Sister Colon cancer Brother Diabetes Mother Diabetes Heart disease Cancer Father Heart disease Cancer Diabetes Surgical History Bladder disease Hx of right cataract extraction Hx of colonoscopy Hx of transurethral resection of prostate H/O wrist surgery History of left heart catheterization (02/07/21) Hx of umbilical hernia repair Hx of cholecystectomy Status post surgical manipulation of ankle joint H/O hemorrhoidectomy Social History household members: spouse Smoking Status: Former smoker how long ago did patient quit smokin years ago alcohol intake: never substance use type: does not use caffeine: Yes Type: coffee Number of servings: 1 ROS ROS ED ROS Narrative Constitutional: No fever, no chills. No diaphoresis. HEENT: No sore throat. No neck pain. No loss of vision. No rhinorrhea. Cardiovascular: Left-sided chest pain. No palpitations. No pedal edema. Respiratory: No cough, no shortness of breath. Abdominal: No abdominal pain. No nausea. No vomiting. Genitourinary: No dysuria. No hematuria. Musculoskeletal: No myalgias. No arthralgias. Neurologic: No headaches. No dizziness. No lightheadedness. EXAM Physical Exam Narrative Exam Narrative: Afebrile. Vital signs noted. Cardiovascular examination feels a regular rate and rhythm. Lungs are clear to auscultation bilaterally. Abdomen is soft and nontender, and obese with positive bowel sounds. Neurological examination is nonfocal and nonlateralizing. Patient mildly hard of hearing. No noted pedal edema bilaterally. Const Vital Signs: 09/20/24 15:46 09/20/24 15:51 09/20/24 16:07 Temperature 98.2 F Temperature Source Oral Pulse Rate 79 Respiratory Rate 19 H Respiratory Effort Normal Non-Labored Blood Pressure 122/66 H Blood Pressure Mean 84 Pulse Ox 91 Oxygen Delivery Method Room Air Nasal Cannula Oxygen Flow Rate (L/min) 2 09/20/24 16:45 09/20/24 16:47 09/20/24 16:58 Temperature Temperature Source Pulse Rate 77 74 76 Respiratory Rate 25 H 20 H Respiratory Effort Blood Pressure 132/79 H 132/79 H Blood Pressure Mean 96 Pulse Ox 96 97 Oxygen Delivery Method Nasal Cannula Oxygen Flow Rate (L/min) 2 09/20/24 17:00 09/20/24 17:30 09/20/24 18:00 Temperature Temperature Source Pulse Rate 79 76 76 Respiratory Rate 20 H 21 H 20 H Respiratory Effort Blood Pressure 132/79 H 127/75 H 127/75 H Blood Pressure Mean 96 88 92 Pulse Ox 96 96 96 Oxygen Delivery Method Nasal Cannula Room Air Oxygen Flow Rate (L/min) 2 09/20/24 18:15 09/20/24 19:00 Temperature Temperature Source Pulse Rate 74 79 Respiratory Rate 16 19 H Respiratory Effort Blood Pressure 114/63 118/72 Blood Pressure Mean 79 87 Pulse Ox 97 96 Oxygen Delivery Method Oxygen Flow Rate (L/min) MDM MDM MDM Narrative Medical decision making narrative: Differential diagnosis includes but not limited to acute coronary syndrome/STEMI/non-STEMI versus pulmonary embolism versus aortic dissection versus pneumonia. History and physical does not support pneumonia, or pulmonary embolism. I do not think he has an aortic dissection as his blood pressure is appropriate in the ED, and pain did not radiate to his back. It was relieved with nitroglycerin. Comprehensive workup was pursued. EKG was obtained and interpreted by myself independently as normal sinus rhythm at 77 bpm with first-degree AV block and a bifascicular block. There is no significant change from the EKG dated 09/01/2024 on my review. I reviewed his laboratory work and he has slightly elevated white count of 11.4 with hemoglobin normal at 13.9, hematocrit 43.8, platelet count 284. BUN elevated at 27 with normal creatinine of 1.26, glucose 147 with anion gap normal at 8. Initial high-sensitivity troponin is 10. Patient reportedly had another set of chest pain so he was given nitroglycerin and EKG was obtained and interpreted by myself independently as sinus rhythm at [address] changes. No STEMI with his recent pain. While his second troponin is pending, I reviewed his previous inpatient and outpatient workup. He had a stress test in June of last year. He has normal ejection fraction of 66% and no inducible ischemia. He has history of atrial fibrillation on Eliquis and nonobstructive coronary artery disease as well. Daughter states that he also has history of pericardial effusion for which his Lasix had been increased. His repeat high-sensitivity troponin is 8. I will discuss patient with cardiology on-call, Dr. Ponce. In discussion with cardiology, he has had 2 negative enzymes, no significant change on his EKG, and in review of his echocardiogram in July of last year, approximately 1 month ago to 1-1/2 months ago, the pericardial effusion was trivial. Cardiology suggests placing the patient on Imdur 30 mg orally daily and outpatient follow-up with cardiology as it was thought that this was most likely noncardiac chest pain/atypical. Return instructions to the emergency department were reviewed. Disposition is discharged home in stable condition. History & Record Review Discussion w/independent historian: Patient and Family Lab Data Attestation: I reviewed the patient's lab results. Labs: Laboratory Results - last 24 hr 09/20/24 09/20/24 15:55 18:46 WBC 11.4 H RBC 5.45 Hgb 13.9 Hct 43.8 MCV 80.4 MCH 25.5 L MCHC 31.7 L RDW Std Deviation 43.9 RDW Coeff of Lucia 15.0 H Plt Count 284 MPV 11.3 Immature Gran % (Auto) 0.400 Neut % (Auto) 66.0 Lymph % (Auto) 16.3 L [place] % (Auto) 14.0 H Eos % (Auto) 2.9 Baso % (Auto) 0.4 Absolute Neuts (auto) 7.5 Absolute Lymphs (auto) 1.85 Nucleated RBC % 0 Differential Comment SCANNED Diff Path Review May foll Sodium 137 Potassium 3.8 Chloride 102 Carbon Dioxide 27.0 Anion Gap 8 BUN 27 H Creatinine 1.26 Estim Creat Clear Calc 66.12 Est GFR (MDRD) Af Amer 71 Est GFR (MDRD) Non-Af 59 L BUN/Creatinine Ratio 21.4 H Glucose 147 H Calcium 9.5 Troponin I High Sens 10 8 Radiography Chest X-Ray - ED: Read by ED Physician and Read by Radiologist Diagnostic Testing: Clinical Impression(s) from Imaging Studies Chest X-Ray 09/20/24 16:33 IMPRESSION: 1. Borderline cardiomegaly and/or pericardial effusion. 2. Interstitial prominence particularly in the basilar lungs likely secondary to scarring or other chronic interstitial changes rather than pneumonia. This is similar to the prior exam. Electronically Signed: Ever Nunez, DO at 17:03 EST , Management Discussion w/another healthcare provider: [employer] Super[employer] (Dr. Ponce, cardiology) Discharge Plan Triage Chief Complaint: Chest Pain ED Provider: Reji Smith Dx/Rx/DC Orders Clinical Impression: Chest pain, History of CAD (coronary artery disease), Atypical chest pain Instructions: ED Chest Pain, Uncertain Cause Prescriptions: New isosorbide mononitrate 30 mg tablet extended release 24 hr 30 mg PO DAILY Qty: 30 0RF No Action Eliquis 5 mg tablet 5 mg PO BID Qty: 180 3RF aspirin 81 mg tablet,delayed release (DR/EC) 81 mg PO DAILY Qty: 90 3RF carvedilol 25 mg tablet 25 mg PO BID Qty: 180 3RF metformin 500 mg tablet extended release 24 hr 1,000 mg PO BID albuterol sulfate 90 mcg/actuation HFA aerosol inhaler 1 inh INHALATION Q6H PRN (Reason: SOB) Qty: 8.5 6RF turmeric root extract 500 mg capsule 1,000 mg PO DAILY flecainide 100 mg tablet 100 mg PO Q12H Qty: 180 3RF losartan 25 mg tablet 25 mg PO DAILY Qty: 90 3RF furosemide [Lasix] 40 mg tablet 40 mg PO BID Qty: 60 11RF potassium chloride 20 mEq tablet extended release 20 meq PO BID Qty: 60 11RF insulin lispro [Humalog KwikPen Insulin] 100 unit/mL insulin pen 26 unit SUBCUT TID colestipol 1 gram tablet 1 g PO DAILY PRN (Reason: gen health) famotidine 20 mg tablet 20 mg PO BID Patient Comments: take 1 tablet by mouth twice a day insulin glargine [Basaglar KwikPen U-100 Insulin] 100 unit/mL (3 mL) insulin pen 60 unit subcut QHS NUVOFLEX 1 cap PO DAILY solifenacin 10 mg tablet 10 mg PO DAILY Patient Comments: per daughter hasn't started taking yet; Dr. Daley just added cholecalciferol (vitamin D3) [Vitamin D3] 50 mcg (2,000 unit) capsule 2,000 unit PO DAILY Jardiance 25 mg Tablet 25 mg PO DAILY Qty: 30 2RF diltiazem HCl [Cartia XT] 120 mg capsule,extended release 24hr 120 mg PO DAILY tamsulosin 0.4 mg capsule 0.4 mg PO BID Patient Comments: per family hasn't started at home as was in & out of hospital though had prev taken during prev hospitalization. isosorbide mononitrate 30 mg tablet extended release 24 hr 30 mg PO DAILY atorvastatin 20 mg tablet 20 mg PO DAILY cephalexin 500 mg capsule 500 mg PO TID 7 Days Qty: 21 0RF finasteride 5 mg tablet 5 mg PO DAILY Primary Care Provider: Jeff Subramanian Referrals: Jeff Subramanian MD [Primary Care Provider] - 3-5 Days Sergey Carreon NP, CERTIFIED FIRE INVESTIGATOR-C [Med Staff - Adv Practice Prof] - 1-2 Weeks Activity Restrictions/Additional Instructions: Return with fever, increased pain, new or worsening symptoms. Print Language: Liberian Disposition Disposition: Home, Self Care
[2024-09-20 16:16] LABS: Absolute Lymphocyte Count 1.85 X10^3/uL (0.83-4.51); Absolute Neutrophil Count 7.5 X10^3/uL (2.0-7.7); Basophil# 0.04 X10^3/uL; Basophil% 0.4 % (0-1); Eosinophil# 0.33 X10^3/uL; Eosinophils% 2.9 % (0-5); Hematocrit 43.8 % (40-54); Hemoglobin 13.9 g/dL (13.0-16.5); Lymphocyte # 1.85 X10^3/ul (0.83-4.51); Lymphocyte % 16.3 % (19-41); Mean Corp Hgb Conc 31.7 g/dL (32-36); Mean Corpuscular Hgb 25.5 pg (27.0-32.0); Mean Corpuscular Volume 80.4 fL (80-94); Mean Platelet Vol. 11.3 fl (6.2-12.0); Monocyte# 1.59 X10^3/uL; NRBC Flagged by Analyzer 0 % (0-5); POSITIVE DIFFERENTIAL YES; Platelet Count 284 K/mm3 (150-450); RBC Distribution Width SD 43.9 fl (35.1-43.9); Red Blood Count 5.45 M/mm3 (4.6-6.2); White Blood Count 11.4 K/mm3 (4.4-11.0)
[2024-09-20 16:19] LABS: Differential Indicated SCAN CRITERIA MET
[2024-09-20 16:33] LABS: Anion Gap 8 (5-15); BUN 27 mg/dL (7-18); BUN/Creat Ratio 21.4 RATIO (10-20); Calcium,Total 9.5 mg/dL (8.5-10.1); Chloride 102 mmol/L (98-107); Creatinine, Serum 1.26 mg/dL (0.70-1.30); EST Glomerular Filtration Rate 59 mL/min (>60); Est Glom Filt Rate - Afr Amer 71 mL/min (>60); Estimated Creatinine Clearance 66.12 ml/min; Glucose 147 mg/dL (74-106); Potassium 3.8 mmol/L (3.5-5.1); Sodium Level 137 mmol/L (136-145); Troponin-I HS (w/2H Reflex) 10 pg/mL (3.0-78.0)
--- NOTE | 2024-09-20 16:33 | RAD_ITS ---
EXAM: XR CHEST, 1 VIEW CLINICAL INDICATION: chest pain TECHNIQUE: Frontal view of the chest. COMPARISON: 09/01/2024 FINDINGS: LUNGS AND PLEURAL SPACES: Interstitial prominence particularly in the basilar lungs likely secondary to scarring or other chronic interstitial changes rather than pneumonia. This is similar to the prior exam. No pneumothorax. No effusion. HEART: Borderline cardiomegaly and/or pericardial effusion. MEDIASTINUM: Central airways and mediastinal contour are unremarkable. BONES/JOINTS: No significant abnormality. No acute fracture. SOFT TISSUES: No significant abnormality. RAD/Chest 1 View (Portable) IMPRESSION: 1. Borderline cardiomegaly and/or pericardial effusion. 2. Interstitial prominence particularly in the basilar lungs likely secondary to scarring or other chronic interstitial changes rather than pneumonia. This is similar to the prior exam. Electronically Signed: Ever Nunez DO at 17:03 EST ,
--- NOTE | 2024-09-20 16:42 | EKG12_ITS ---
Test Reason : REPEAT Blood Pressure : */* mmHG Vent. Rate : 75 BPM Atrial Rate : 75 BPM P-R Int : 224 ms QRS Dur : 162 ms QT Int : 426 ms P-R-T Axes : 8 -81 2 degrees QTcB Int : 475 ms Sinus rhythm with 1st degree A-V block Right bundle branch block Left anterior fascicular block Bifascicular block Cannot rule out Inferior infarct (masked by fascicular block?) , age undetermined Abnormal ECG Confirmed by MIGUEL ANGEL WATKINS MD ([id number]), television news video editor CARLOTA SUTTON ([id number]) on 09/22/2024 7:02:20 AM Referred By: Confirmed By: MIGUEL NAGEL WATKINS MD
[2024-09-20] MEDS: Nitroglycerin SL (ED/IMG/CATH) 0.4 MG TABLET SL (16:58)
[2024-09-20 17:02] LABS: Differential Comment SCANNED
[2024-09-20 18:11] LABS: Reflex Troponin-HS? (from REC) Y
[2024-09-20 19:13] LABS: Troponin-I HS 8 pg/mL (3.0-78.0)
[2024-09-22 13:21] LABS: Pathologist Review Reviewed
== END 2024-09-20 19:39 | disposition home or self-care (01) ==
PROVIDERS: Emergency Provider Emergency Medicine; PCP Family Medicine; Visit Provider Emergency Medicine
DX: R07.89 Other chest pain (principal); E11.9 Type 2 diabetes mellitus without complications; Z79.4 Long term (current) use of insulin; I25.10 Atherosclerotic heart disease of native coronary artery without angina pectoris; E78.00 Pure hypercholesterolemia, unspecified; Z87.891 Personal history of nicotine dependence; I10 Essential (primary) hypertension; Z79.82 Long term (current) use of aspirin; Z79.01 Long term (current) use of anticoagulants; Z90.49 Acquired absence of other specified parts of digestive tract; Z86.16 Personal history of COVID-19; Z99.89 Dependence on other enabling machines and devices; I45.2 Bifascicular block
CPT/HCPCS: 36415; 71045; 80048; 84484; 85025; 93005; 99285; A4216

== ENCOUNTER → 2024-10-07 | Outpatient (CLI) | payer MEDICARE, SELFPAY ==
[2024-10-07 11:05] LABS: Anion Gap 6 (5-15); BUN 32 mg/dL (7-18); BUN/Creat Ratio 26.7 RATIO (10-20); Calcium,Total 9.6 mg/dL (8.5-10.1); Chloride 104 mmol/L (98-107); EST Glomerular Filtration Rate 62 mL/min (>60); Est Glom Filt Rate - Afr Amer 75 mL/min (>60); Glucose 142 mg/dL (74-106); Potassium 4.3 mmol/L (3.5-5.1); Sodium Level 136 mmol/L (136-145)
== END | disposition home or self-care (01) ==
LOC: LAB 10:11
PROVIDERS: PCP Family Medicine; Referring Provider Physician Assistant Medical; Visit Provider Physician Assistant Medical
DX: I51.89 Other ill-defined heart diseases (principal)
CPT/HCPCS: 36415; 80048

== ENCOUNTER → 2024-10-23 | Outpatient (CLI) | payer MEDICARE, SELFPAY ==
[2024-10-23] MEDS: Zolpidem Tartrate 5 MG Tablet PO (21:48)
== END | disposition home or self-care (01) ==
LOC: SL 19:54
PROVIDERS: PCP Family Medicine; Visit Provider Nurse Practitioner Family
DX: G47.33 Obstructive sleep apnea (adult) (pediatric) (principal)
CPT/HCPCS: 95811

== ENCOUNTER 2024-11-03 00:03 | Emergency (ER) | payer MEDICARE, SELFPAY ==
[2024-11-03 00:05] VITALS: BP 132/85; PULSE 72; RESP 18; TEMP 37; O2SAT 97; BMI 35.9
[2024-11-03 00:25] LABS: Bedside Glucose 55 mg/dL (74-106)
--- NOTE | 2024-11-03 00:44 | EX.ED.DYSGE1 ---
HPI History of Present Illness Chief Complaint: Overdose Detail of Chief Complaint: Accidental insulin overdose Informant: patient Narrative Narrative: Patient presents with concern for hypoglycemia. He states that he had EMS out to his house yesterday because his blood sugar dropped down in the 50s. He refused to come in at that time. His daughter told him to take 60 units of Lantus as he was normally used to taking 80 units. He forgot to do the 60 units tonight and accidentally gave himself 80 units of the Lantus. He did not feel quite right so he checked his blood sugar and called EMS. Per EMS his blood sugar was 47. On arrival he was given orange juice and a meal. He really otherwise has no complaints. He has not been ill. He is been eating normally. He does live alone. [facility] Medical History (Updated 11/03/24 @ 02:[address] Qasim Senior, ) Diastolic dysfunction Dyspnea Diabetes Sleep apnea Atrial fibrillation Cancer Walker as ambulation aid Arthritis Prostate disease Complete edentulism, class III Gastric reflux CPAP (continuous positive airway pressure) dependence History of pain when walking History of edema History of echocardiogram History of stress test Cardiology follow-up encounter Blindness Bladder cancer Restrictive airway disease Morbid obesity Pneumonia due to COVID-19 virus Left lower lobe pneumonia Acute respiratory failure with hypoxia Wears hearing aid Wears glasses Insulin dependent diabetes mellitus Psoriasis High cholesterol Restless legs Back pain Injury of back Dietary restriction Former smoker Shortness of breath on exertion Hypertension Right bundle branch 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 Nonobstructive atherosclerosis of coronary artery Obesity BPH (benign prostatic hyperplasia) Hyperlipidemia Essential (primary) hypertension Atrial fibrillation with RVR (02/05/21) Home Medications ?Medication ?Instructions ?Recorded ?Last Taken ?Type apixaban 5 mg tablet (Eliquis) 5 mg PO BID blood thinner #180 tabs 02/22/21 05/03/24 Rx aspirin 81 mg tablet,delayed 81 mg PO DAILY hematuria #90 tabs 02/22/21 04/30/24 Rx release carvedilol 25 mg tablet 25 mg PO BID heart #180 tabs 02/22/21 05/07/24 09:30 Rx insulin lispro 100 unit/mL 26 unit subcut TID diabetes 10/24/21 Unknown History subcutaneous pen (Humalog KwikPen (U-100) Insulin) metformin 500 mg tablet,extended 1,000 mg PO BID blood sugar 10/24/21 Unknown History release 24 hr albuterol sulfate 90 mcg/actuation 1 inh inhalation Q6H PRN SOB #8.5 11/30/21 Unknown Rx aerosol inhaler grams finasteride 5 mg tablet 5 mg PO DAILY bph 10/27/22 Unknown History NUVOFLEX 1 cap PO DAILY arthritis 09/22/23 Unknown History famotidine 20 mg tablet 20 mg PO BID misti 09/22/23 05/07/24 09:30 History insulin glargine 100 unit/mL (3 60 unit subcut QHS diabete 09/22/23 Unknown History mL) subcutaneous pen (Basaglar KwikPen U-100 Insulin) turmeric root extract 500 mg 1,000 mg PO DAILY viatmin 10/24/23 Unknown History capsule diltiazem HCl 120 mg 120 mg PO DAILY heart 06/08/24 Unknown History capsule,extended release 24 hr (Cartia XT) tamsulosin 0.4 mg capsule 0.4 mg PO BID bph 07/10/24 07/09/24 History cholecalciferol (vitamin D3) 50 2,000 unit PO DAILY supplement 07/22/24 Unknown History mcg (2,000 unit) capsule (Vitamin D3) solifenacin 10 mg tablet 10 mg PO DAILY bladder 07/22/24 Unknown History empagliflozin 25 mg tablet 25 mg PO DAILY #30 tabs 07/25/24 Unknown Rx (Jardiance) flecainide 100 mg tablet 100 mg PO Q12H heart #180 tabs 08/13/24 Unknown Rx atorvastatin 20 mg tablet 20 mg PO DAILY 09/01/24 Unknown History colestipol 1 gram tablet 1 g PO DAILY PRN gen health 09/03/24 Unknown History losartan 25 mg tablet 25 mg PO DAILY #90 tabs 09/03/24 Unknown Rx furosemide 40 mg tablet (Lasix) 40 mg PO QAM #60 tabs 09/23/24 Unknown Rx spironolactone 25 mg tablet 25 mg PO DAILY #30 tabs 09/23/24 Unknown Rx isosorbide mononitrate 30 mg 30 mg PO DAILY #90 tabs 10/22/24 Unknown Rx tablet,extended release 24 hr Allergy/AdvReac Type Severity Reaction Status Date / Time amoxicillin Allergy Rash Verified 11/03/24 00:04 Family History Sister Colon cancer Brother Diabetes Mother Diabetes Heart disease Cancer Father Heart disease Cancer Diabetes Surgical History Bladder disease Hx of right cataract extraction Hx of colonoscopy Hx of transurethral resection of prostate H/O wrist surgery History of left heart catheterization (02/07/21) Hx of umbilical hernia repair Hx of cholecystectomy Status post surgical manipulation of ankle joint H/O hemorrhoidectomy Social History household members: spouse Smoking Status: Former smoker how long ago did patient quit smokin years ago alcohol intake: never substance use type: does not use caffeine: Yes Type: coffee Number of servings: 1 ROS ROS ED ROS Narrative Hypoglycemia Review of Systems ROS Unobtainable: other Constitutional Constitutional ED: Reports lethargy; Denies chills, fever(s), sweats or weight loss Eyes Eyes: Denies blurry vision, change in vision or diplopia ENT ENT ED: Denies rhinorrhea or sore throat Cardiovascular Cardiovascular: Denies chest pain, orthopnea or racing heartbeat Respiratory/Chest Respiratory/Chest: Reports dyspnea on exertion; Denies cough, dyspnea, orthopnea or sputum Gastrointestinal Gastrointestinal: Denies abdominal pain, diarrhea, nausea or vomiting Genitourinary Genitourinary ED: Denies dysuria, hematuria or urinary frequency Musculoskeletal Musculoskeletal: Denies arthralgias, back pain, myalgias or neck pain Integumentary Denies abscess, Abrasions or rash Neurologic Neurologic: Denies headache(s) or weakness Psychiatric Psychiatric: Denies anxiety, depression or suicidal thoughts Endocrine Endocrinology: Denies polydipsia, polyphagia or polyuria Hematologic/Lymphatic Hematologic/Lymphatic: Denies easy bleeding, easy bruising or lymphadenopathy Allergic/Immunologic Allergic/Immunologic ED: Denies mouth swelling, tongue swelling or urticaria EXAM Physical Exam Const Vital Signs: 11/03/24 00:05 Temperature 98.6 F Temperature Source Oral Pulse Rate 72 Respiratory Rate 18 Blood Pressure 132/85 H Blood Pressure Mean 100 Pulse Ox 97 Oxygen Delivery Method Room Air Positive well nourished and well developed General Appearance ED: well developed and NAD HEENT Reports TM's clear and moist mucous membranes normocephalic and atraumatic; Negative for trauma or tenderness Tympanic Membrane ED: Yes TM's clear Eyes PERRL and EOMs intact bilaterally General Eye ED: Negative for pale conjunctiva or scleral icterus Neck no lymphadenopathy, supple and no JVD General: Negative for tenderness Chest Wall inspection of chest normal and palpation of chest normal Chest: Negative for tenderness Resp normal respiratory effort and clear to auscultation bilaterally Effort and Inspection: Negative for respiratory distress or pain with movement Auscultation: Negative for rhonchi, wheezes or diminished lung sounds Cardio regular rate, regular rhythm, S1 normal heart sound, S2 normal heart sound and no murmurs Peripheral Pulses: pulses 2+ throughout GI normal to inspection, nondistended, normoactive bowel sounds, soft to palpation, non-tender, non-distended and no masses Back/Spine no CVA tenderness and no thoracic nor lumbar tenderness Extremity normal to inspection General Extremety ED: Negative for edema General Extremity: Negative for edema Neuro oriented x3, CN's II-XII intact bilaterally, no sensory deficits noted and gait normal Sensorium / Orientation: awake, alert, oriented to person, oriented to place and oriented to time Motor Exam: strength 5/5 throughout and strength abnormal Psych mental status grossly normal Skin no rashes or lesions noted and no wounds MDM MDM MDM Narrative Medical decision making narrative: Patient presents with hypoglycemia after accidentally given himself too much insulin Lantus. Patient awake and alert on arrival. Looks well. We did give him a meal tray. He was observed for 2 hours and blood glucose in the 130s. At this point I feel he can be safely discharged to home. I advised him to follow-up with his primary care physician within the next 1 to 2 days. I advised that he take 50 of Lantus at night instead of the 80 that he accidentally gave himself today. I advised him to eat protein throughout the day Lab Data Attestation: I reviewed the patient's lab results. Labs: Laboratory Results - last 24 hr 11/03/24 00:07 POC Glucose 55 L Discharge Plan Triage Chief Complaint: Overdose ED Provider: Qasim Senior Dx/Rx/DC Orders Clinical Impression: Hypoglycemia Instructions: Hypoglycemia (Low Blood Sugar) Prescriptions: No Action Eliquis 5 mg tablet 5 mg PO BID Qty: 180 3RF aspirin 81 mg tablet,delayed release (DR/EC) 81 mg PO DAILY Qty: 90 3RF carvedilol 25 mg tablet 25 mg PO BID Qty: 180 3RF metformin 500 mg tablet extended release 24 hr 1,000 mg PO BID albuterol sulfate 90 mcg/actuation HFA aerosol inhaler 1 inh INHALATION Q6H PRN (Reason: SOB) Qty: 8.5 6RF turmeric root extract 500 mg capsule 1,000 mg PO DAILY flecainide 100 mg tablet 100 mg PO Q12H Qty: 180 3RF losartan 25 mg tablet 25 mg PO DAILY Qty: 90 3RF furosemide [Lasix] 40 mg tablet 40 mg PO QAM Qty: 60 11RF spironolactone 25 mg tablet 25 mg PO DAILY Qty: 30 11RF insulin lispro [Humalog KwikPen Insulin] 100 unit/mL insulin pen 26 unit SUBCUT TID colestipol 1 gram tablet 1 g PO DAILY PRN (Reason: gen health) famotidine 20 mg tablet 20 mg PO BID Patient Comments: take 1 tablet by mouth twice a day insulin glargine [Basaglar KwikPen U-100 Insulin] 100 unit/mL (3 mL) insulin pen 60 unit subcut QHS NUVOFLEX 1 cap PO DAILY solifenacin 10 mg tablet 10 mg PO DAILY Patient Comments: per daughter hasn't started taking yet; Dr. Daley just added cholecalciferol (vitamin D3) [Vitamin D3] 50 mcg (2,000 unit) capsule 2,000 unit PO DAILY Jardiance 25 mg Tablet 25 mg PO DAILY Qty: 30 2RF diltiazem HCl [Cartia XT] 120 mg capsule,extended release 24hr 120 mg PO DAILY tamsulosin 0.4 mg capsule 0.4 mg PO BID Patient Comments: per family hasn't started at home as was in & out of hospital though had prev taken during prev hospitalization. atorvastatin 20 mg tablet 20 mg PO DAILY finasteride 5 mg tablet 5 mg PO DAILY isosorbide mononitrate 30 mg tablet extended release 24 hr 30 mg PO DAILY Qty: 90 3RF Primary Care Provider: Jeff Subramanian Referrals: Jeff Subramanian MD [Primary Care Provider] - Activity Restrictions/Additional Instructions: Recommend you take 50 units of Lantus at night instead of 80 units. Make sure you eat protein throughout the day. Print Language: [place] Disposition Disposition: Home, Self Care
[2024-11-03 01:08] LABS: Bedside Glucose 108 mg/dL (74-106)
[2024-11-03 02:03] VITALS: BP 127/103; PULSE 98; RESP 13; O2SAT 98
[2024-11-03 02:21] VITALS: BP 121/72; PULSE 72; RESP 18; TEMP 36.7; O2SAT 96
[2024-11-03 02:30] LABS: Bedside Glucose 132 mg/dL (74-106)
--- NOTE | 2024-11-03 02:31 | ED.RN ---
PT. STATES HIS DAUGHTER IS COMING TO GET HIM. TRANSPORT CANCELED AT THIS TIME.
== END 2024-11-03 02:31 | disposition home or self-care (01) ==
PROVIDERS: Emergency Provider Emergency Medicine; PCP Family Medicine; Visit Provider Emergency Medicine
DX: E11.649 Type 2 diabetes mellitus with hypoglycemia without coma (principal); Z79.4 Long term (current) use of insulin; E78.5 Hyperlipidemia, unspecified; I10 Essential (primary) hypertension; I25.10 Atherosclerotic heart disease of native coronary artery without angina pectoris; Z87.891 Personal history of nicotine dependence; Z99.89 Dependence on other enabling machines and devices; Z85.51 Personal history of malignant neoplasm of bladder; Z86.16 Personal history of COVID-19; Z90.49 Acquired absence of other specified parts of digestive tract
CPT/HCPCS: 82962; 99284

== ENCOUNTER → 2024-11-10 | Outpatient (CLI) | payer MEDICARE, SELFPAY | END | disposition home or self-care (01) | LOC: SL 11:03 | PROVIDERS: PCP Family Medicine; Visit Provider Nurse Practitioner Family | DX: Z46.89 Encounter for fitting and adjustment of other specified devices (principal) ==

== ENCOUNTER → 2024-11-27 | Outpatient (CLI) | payer MEDICARE, SELFPAY ==
[2024-11-27 10:46] LABS: Hematocrit 43.7 % (40-54); Hemoglobin 14.3 g/dL (13.0-16.5); Mean Corp Hgb Conc 32.7 g/dL (32-36); Mean Corpuscular Hgb 26.3 pg (27.0-32.0); Mean Corpuscular Volume 80.5 fL (80-94); Mean Platelet Vol. 10.6 fl (6.2-12.0); Platelet Count 272 K/mm3 (150-450); RBC Distribution Width SD 49.5 fl (35.1-43.9); Red Blood Count 5.43 M/mm3 (4.6-6.2); White Blood Count 11.5 K/mm3 (4.4-11.0)
[2024-11-27 23:52] LABS: Magnesium 2.3 mg/dL (1.5-2.2)
[2024-11-27 23:55] LABS: Anion Gap 17 (5-15); BUN 22 mg/dL (4-19); BUN/Creat Ratio 18.3 RATIO (10-20); Calcium,Total 9.3 mg/dL (7.6-11.0); Carbon Dioxide 18.9 mmol/L (21.0-32.0); Chloride 100 mmol/L (98-108); Creatinine, Serum 1.19 mg/dL (0.70-1.20); EST Glomerular Filtration Rate 62 (>60); Glucose 142 mg/dL (70-99); Sodium Level 136 mmol/L (133-145)
== END | disposition home or self-care (01) ==
LOC: LAB 10:19
PROVIDERS: PCP Family Medicine; Referring Provider Family Medicine; Visit Provider Family Medicine
DX: E11.29 Type 2 diabetes mellitus with other diabetic kidney complication (principal); R80.9 Proteinuria, unspecified; I10 Essential (primary) hypertension
CPT/HCPCS: 36415; 80048; 83735; 85027

== ENCOUNTER → 2024-11-28 | Outpatient (CLI) | payer MEDICARE, SELFPAY ==
[2024-11-28 13:33] LABS: Microalbumin:Creatinine Ratio 187.6 mg/g CRE
[2024-11-28 14:13] LABS: ALB/GLOB Ratio 1.2 RATIO (0.9-2.4); AST(SGOT) 19 U/L (<=37); Alanine Aminotransfer ALT/SGPT 15 U/L (<=46); Alkaline Phosphatase 110 U/L (40-129); Anion Gap 13 (5-15); BUN 20 mg/dL (4-19); BUN/Creat Ratio 19.6 RATIO (10-20); Calcium,Total 9.3 mg/dL (7.6-11.0); Carbon Dioxide 21.4 mmol/L (21.0-32.0); Chloride 101 mmol/L (98-108); Cholesterol 110 mg/dL (<=200); EST Glomerular Filtration Rate 76 (>60); Globulin 3.3 g/dL (2.2-4.2); Glucose 121 mg/dL (70-99); High Density Lipoprotein 36 mg/dL; Low Density Lipoprotein Calc. 52 mg/dL; Potassium 4.3 mmol/L (3.3-5.1); Protein, Total 7.3 g/dL (5.9-8.4); Sodium Level 136 mmol/L (133-145); Total Bilirubin 0.49 mg/dL (0.00-1.30); Triglycerides 108 mg/dL; Very Low Density Lipoprotein 22 mg/dL (5-40); cholesterol:hdl ratio screen 3.06
[2024-11-29 14:25] LABS: Hematocrit 44.1 % (40-54); Hemoglobin 14.6 g/dL (13.0-16.5); Mean Corp Hgb Conc 33.1 g/dL (32-36); Mean Corpuscular Hgb 26.6 pg (27.0-32.0); Mean Corpuscular Volume 80.3 fL (80-94); Mean Platelet Vol. 11.2 fl (6.2-12.0); Platelet Count 282 K/mm3 (150-450); RBC Distribution Width SD 49.3 fl (35.1-43.9); Red Blood Count 5.49 M/mm3 (4.6-6.2); White Blood Count 12.1 K/mm3 (4.4-11.0)
== END | disposition home or self-care (01) ==
LOC: LAB 12:08
PROVIDERS: PCP Family Medicine; Referring Provider Family Medicine; Visit Provider Family Medicine
DX: E11.29 Type 2 diabetes mellitus with other diabetic kidney complication (principal); R80.9 Proteinuria, unspecified; I10 Essential (primary) hypertension
CPT/HCPCS: 36415; 80053; 80061; 82043; 82570; 83036; 85027

== ENCOUNTER 2025-01-19 22:42 | Emergency (ER) | payer MEDICARE, SELFPAY ==
[2025-01-19 22:43] VITALS: BP 133/80; PULSE 82; RESP 15; TEMP 36; O2SAT 93; BMI 35.4
[2025-01-19 22:57] VITALS: O2SAT 91
--- NOTE | 2025-01-19 22:57 | EKG12_ITS ---
Test Reason : CP Blood Pressure : */* mmHG Vent. Rate : 75 BPM Atrial Rate : 75 BPM P-R Int : 228 ms QRS Dur : 164 ms QT Int : 442 ms P-R-T Axes : 78 -78 24 degrees QTcB Int : 493 ms Sinus rhythm with 1st degree A-V block Right bundle branch block Left anterior fascicular block Bifascicular block Abnormal ECG Confirmed by Gabriel Lin ([id number]), news editor CARLOTA SUTTON ([id number]) on 01/23/2025 11:56:28 AM Referred By: JASWANT Confirmed By: Gabriel Lin
[2025-01-19 23:06] LABS: Absolute Neutrophil Count 8.3 X10^3/uL (2.0-7.7); Basophil# 0.06 X10^3/uL; Basophil% 0.5 % (0-1); Eosinophil# 0.34 X10^3/uL; Eosinophils% 2.7 % (0-5); Hematocrit 44.8 % (40-54); Lymphocyte % 19.7 % (19-41); Mean Corp Hgb Conc 33.5 g/dL (32-36); Mean Corpuscular Hgb 26.9 pg (27.0-32.0); Mean Corpuscular Volume 80.3 fL (80-94); Mean Platelet Vol. 10.9 fl (6.2-12.0); Monocyte# 1.44 X10^3/uL; Monocyte% 11.4 % (0-10); NRBC Flagged by Analyzer 0 % (0-5); Neutrophil # 8.27 X10^3/uL (2.7-7.7); Neutrophil % 65.2 % (47-70); Platelet Count 273 K/mm3 (150-450); RBC Distribution Width SD 46.3 fl (35.1-43.9); Red Blood Count 5.58 M/mm3 (4.6-6.2); White Blood Count 12.7 K/mm3 (4.4-11.0)
--- NOTE | 2025-01-19 23:15 | RAD_ITS ---
PROCEDURE: CHEST 1 VIEW (PORTABLE) 01/19/2025 REASON FOR EXAM: CHEST PAIN TECHNIQUE: Frontal view of the chest. COMPARISON: 09/20/2019 FINDINGS: Hardware: None Heart: Stable mild cardiomegaly. Lungs: Patchy opacities in the lung base, compatible with atelectasis. Mild bilateral interstitial thickening. No pneumothorax. No pleural effusion. Bones: The bones are unremarkable. Other: RAD/Chest 1 View (Portable) IMPRESSION: Findings suggestive of vascular congestion. Reading Location: [facility]
[2025-01-19 23:30] VITALS: BP 145/81; PULSE 78; RESP 18; O2SAT 93
[2025-01-19 23:30] LABS: Anion Gap 14 (5-15); BUN 31 mg/dL (4-19); Calcium,Total 9.9 mg/dL (7.6-11.0); Carbon Dioxide 22.5 mmol/L (21.0-32.0); Chloride 98 mmol/L (98-108); Creatinine, Serum 1.25 mg/dL (0.70-1.20); EST Glomerular Filtration Rate 58 (>60); Glucose 156 mg/dL (70-99); Potassium 3.9 mmol/L (3.3-5.1); Sodium Level 134 mmol/L (133-145); Troponin T High Sensitivity 49 ng/L (<=22)
[2025-01-19] MEDS: Aspirin 81 MG TAB.CHEW 324 MG PO (23:41)
[2025-01-20] VITALS: BP 135/78; PULSE 75; RESP 18; O2SAT 92
--- NOTE | 2025-01-20 00:10 | ED.VIS.CHEST ---
HPI History of Present Illness Chief Complaint: Chest Pain Informant: patient and spouse/S.O. Narrative Narrative: Presents achy chest pain 45 minutes prior to arrival. With sitting when symptoms occurred. No dyspnea no nausea no diaphoresis. No radicular symptoms. History of paroxysmal A-fib on Eliquis compliant except has not taken tonight's dose. Symptoms subsided currently pain 1-2. Unclear if he has been cath. He has had stress test in the past. He is followed by cardiology Dr. Ponce. suspected yeah so they can information so symptoms control also toxic we will move this Prior Similar Symptoms: No PFSH PFSH Medical History Diastolic dysfunction Dyspnea Diabetes Sleep apnea Atrial fibrillation Cancer Walker as ambulation aid Arthritis Prostate disease Complete edentulism, class III Gastric reflux CPAP (continuous positive airway pressure) dependence History of pain when walking History of edema History of echocardiogram History of stress test Cardiology follow-up encounter Blindness Bladder cancer Restrictive airway disease Morbid obesity Pneumonia due to COVID-19 virus Left lower lobe pneumonia Acute respiratory failure with hypoxia Wears hearing aid Wears glasses Insulin dependent diabetes mellitus Psoriasis High cholesterol Restless legs Back pain Injury of back Dietary restriction Former smoker Shortness of breath on exertion Hypertension Right bundle branch 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 Nonobstructive atherosclerosis of coronary artery Obesity BPH (benign prostatic hyperplasia) Hyperlipidemia Essential (primary) hypertension Atrial fibrillation with RVR (02/05/21) Home Medications ?Medication ?Instructions ?Recorded ?Last Taken ?Type apixaban 5 mg tablet (Eliquis) 5 mg PO BID blood thinner #180 tabs 02/22/21 05/03/24 Rx carvedilol 25 mg tablet 25 mg PO BID heart #180 tabs 02/22/21 05/07/24 09:30 Rx metformin 500 mg tablet,extended 1,000 mg PO BID blood sugar 10/24/21 Unknown History release 24 hr albuterol sulfate 90 mcg/actuation 1 inh inhalation Q6H PRN SOB #8.5 11/30/21 Unknown Rx aerosol inhaler grams finasteride 5 mg tablet 5 mg PO DAILY bph 10/27/22 Unknown History NUVOFLEX 1 cap PO DAILY arthritis 09/22/23 Unknown History famotidine 20 mg tablet 20 mg PO BID misti 09/22/23 05/07/24 09:30 History insulin glargine 100 unit/mL (3 40 unit subcut QHS diabete 09/22/23 Unknown History mL) subcutaneous pen (Basaglar KwikPen U-100 Insulin) turmeric root extract 500 mg 1,000 mg PO DAILY viatmin 10/24/23 Unknown History capsule diltiazem HCl 120 mg 120 mg PO DAILY heart 06/08/24 Unknown History capsule,extended release 24 hr (Cartia XT) tamsulosin 0.4 mg capsule 0.4 mg PO BID bph 07/10/24 07/09/24 History cholecalciferol (vitamin D3) 50 2,000 unit PO DAILY supplement 07/22/24 Unknown History mcg (2,000 unit) capsule (Vitamin D3) solifenacin 10 mg tablet 10 mg PO DAILY bladder 07/22/24 Unknown History empagliflozin 25 mg tablet 25 mg PO DAILY #30 tabs 07/25/24 Unknown Rx (Jardiance) flecainide 100 mg tablet 100 mg PO Q12H heart #180 tabs 08/13/24 Unknown Rx atorvastatin 20 mg tablet 20 mg PO DAILY 09/01/24 Unknown History colestipol 1 gram tablet 1 g PO DAILY PRN gen health 09/03/24 Unknown History furosemide 40 mg tablet (Lasix) 40 mg PO QAM #60 tabs 09/23/24 Unknown Rx spironolactone 25 mg tablet 25 mg PO DAILY #30 tabs 09/23/24 Unknown Rx isosorbide mononitrate 30 mg 30 mg PO DAILY #90 tabs 10/22/24 Unknown Rx tablet,extended release 24 hr insulin aspart 22 unit subcut TID 01/19/25 Unknown History (niacinamide)(U-100) 100 unit/mL(3 mL) subcutaneous pen (Fiasp FlexTouch U-100 Insulin) mecobalamin (vitamin B12) 1,000 1,000 mcg PO DAILY 01/19/25 Unknown History mcg chewable tablet Allergy/AdvReac Type Severity Reaction Status Date / Time amoxicillin Allergy Rash Verified 01/19/25 22:43 Family History Sister Colon cancer Brother Diabetes Mother Diabetes Heart disease Cancer Father Heart disease Cancer Diabetes Surgical History Bladder disease Hx of right cataract extraction Hx of colonoscopy Hx of transurethral resection of prostate H/O wrist surgery History of left heart catheterization (02/07/21) Hx of umbilical hernia repair Hx of cholecystectomy Status post surgical manipulation of ankle joint H/O hemorrhoidectomy Social History household members: spouse Smoking Status: Former smoker how long ago did patient quit smokin years ago alcohol intake: never substance use type: does not use caffeine: Yes Type: coffee Number of servings: 1 ROS ROS ED Constitutional Constitutional ED: Denies chills, fever(s) or sweats ENT ENT ED: Denies sore throat Cardiovascular Cardiovascular: Reports chest pain; Denies leg edema, palpitations or racing heartbeat Respiratory/Chest Respiratory/Chest: Denies cough, dyspnea or dyspnea on exertion Gastrointestinal Gastrointestinal: Denies abdominal pain, diarrhea, nausea or vomiting Genitourinary Genitourinary ED: Denies dysuria, hematuria or urinary frequency Musculoskeletal Musculoskeletal: Denies back pain, extremity pain or neck pain Integumentary Denies rash or wounds Neurologic Neurologic: Denies headache(s), paresthesias or weakness EXAM Physical Exam Const Vital Signs: 01/19/25 22:43 01/19/25 22:57 01/19/25 23:30 Temperature 96.8 F L Temperature Source Temporal Pulse Rate 82 78 Respiratory Rate 15 18 Respiratory Effort Respiratory Pattern Blood Pressure 133/80 H 145/81 H Blood Pressure Mean 97 102 Pulse Ox 93 91 93 Oxygen Delivery Method Room Air Room Air Room Air 01/19/25 23:33 01/20/25 00:00 01/20/25 01:00 Temperature Temperature Source Pulse Rate 75 74 Respiratory Rate 18 17 Respiratory Effort Normal Non-Labored Respiratory Pattern Normal Blood Pressure 135/78 H 135/78 H Blood Pressure Mean 97 97 Pulse Ox 92 93 Oxygen Delivery Method Room Air Room Air 01/20/25 02:00 01/20/25 03:00 01/20/25 03:54 Temperature 98.1 F Temperature Source Pulse Rate 73 72 70 Respiratory Rate 16 16 18 Respiratory Effort Respiratory Pattern Blood Pressure 135/69 H 138/79 H 135/59 H Blood Pressure Mean 91 98 84 Pulse Ox 94 92 95 Oxygen Delivery Method Room Air Room Air Positive well nourished and well developed General Appearance ED: well developed and NAD HEENT Reports moist mucous membranes normocephalic and atraumatic Eyes General Eye ED: Yes normal appearance of both eyes Neck full ROM Chest Wall Chest: Negative for tenderness Resp normal respiratory effort and normal air movement Effort and Inspection: symmetric chest movement; Negative for respiratory distress Cardio regular rate, regular rhythm and no murmurs Peripheral Pulses: pulses 2+ throughout GI normal to inspection, nondistended, normoactive bowel sounds and non-tender Palpation: Negative for guarding or rebound tenderness present Extremity normal to inspection General Extremety ED: Negative for edema or tenderness General Extremity: Negative for edema Neuro oriented x3 and no sensory deficits noted Sensorium / Orientation: awake and alert Skin no rashes or lesions noted and no wounds MDM MDM MDM Narrative Medical decision making narrative: Interventions / MDM: Differential diagnosis: Atypical chest pain, history of paroxysmal A-fib, chronic anticoagulation Diagnosis considered but do not suspect: Pulmonary embolism however chronic anticoagulation. ACS however negative workup with labs, EKG with no ischemic findings. My EKG interpretation: Sinus first-degree AV block, no ST changes. Right bundle branch block with left anterior fascicular block. Similar EKG findings September 2024 Imaging independently reviewed and interpreted by myself: 1 view chest x-ray: Mild vascular congestion, also read by radiology. External documents reviewed: N/A Test considered but not ordered:N/A ED course: Patient reports chest achiness 45 minutes prior to arrival of symptoms without to a 1-2 at this time. EKG chronic findings. Cardiac workup initiated. Aspirin ordered. 2330: Initial troponin 49 creatinine 1.25. Hemoglobin 15. 0110: Patient currently symptom-free awaiting results of delta troponin. 0245: Delta troponin from 49 up to 51. He still remains symptom-free. Vague symptoms with aching on arrival. Will monitor and obtain a 4-hour troponin prior to disposition. 0344: 4-hour troponin 53. Per hospital algorithm delta change of less than 6. Repeat chest pain-free. ACS ruled out. He will follow-up with his cardiology team for further workup as needed. Return precaution discussed. All questions were answered. Re-evaluation: stable Disposition discussed with patient/family/significant other: Patient and spouse. Case discussed with consulting clinician: N/A This note was generated with Snaptripation software. It may contain incorrect words, spelling, and punctuation that were not noted in checking the note before signing. Lab Data Attestation: I reviewed the patient's lab results. Labs: Laboratory Results - last 24 hr 01/19/25 01/20/25 01/20/25 23:00 01:06 03:07 WBC 12.7 H RBC 5.58 Hgb 15.0 Hct 44.8 MCV 80.3 MCH 26.9 L MCHC 33.5 RDW Std Deviation 46.3 H RDW Coeff of Lucia 16.0 H Plt Count 273 MPV 10.9 Immature Gran % (Auto) 0.500 Neut % (Auto) 65.2 Lymph % (Auto) 19.7 [place] % (Auto) 11.4 H Eos % (Auto) 2.7 Baso % (Auto) 0.5 Absolute Neuts (auto) 8.3 H Absolute Lymphs (auto) 2.50 Nucleated RBC % 0 Sodium 134 Potassium 3.9 Chloride 98 Carbon Dioxide 22.5 Anion Gap 14 BUN 31 H Creatinine 1.25 H Estim Creat Clear Calc 64.50 Est GFR (MDRD) Non-Af 58 L BUN/Creatinine Ratio 25.0 H Glucose 156 H Calcium 9.9 Troponin T High Sens 49 H Troponin T Hi Sens 2 Hr 51 H Troponin T Hi Sens 4Hr 53 H Radiography Diagnostic Testing: Clinical Impression(s) from Imaging Studies Chest X-Ray 01/19/25 23:15 IMPRESSION: Findings suggestive of vascular congestion. Reading Location: [facility] Discharge Plan Triage Chief Complaint: Chest Pain ED Provider: Abraham Tierney Dx/Rx/DC Orders Clinical Impression: Chest pain, Paroxysmal atrial fibrillation, Chronic anticoagulation Instructions: ED Chest Pain, Uncertain Cause Prescriptions: No Action Eliquis 5 mg tablet 5 mg PO BID Qty: 180 3RF carvedilol 25 mg tablet 25 mg PO BID Qty: 180 3RF metformin 500 mg tablet extended release 24 hr 1,000 mg PO BID albuterol sulfate 90 mcg/actuation HFA aerosol inhaler 1 inh INHALATION Q6H PRN (Reason: SOB) Qty: 8.5 6RF turmeric root extract 500 mg capsule 1,000 mg PO DAILY flecainide 100 mg tablet 100 mg PO Q12H Qty: 180 3RF furosemide [Lasix] 40 mg tablet 40 mg PO QAM Qty: 60 11RF Patient Comments: takes two pills for weight gain >4lbs spironolactone 25 mg tablet 25 mg PO DAILY Qty: 30 11RF colestipol 1 gram tablet 1 g PO DAILY PRN (Reason: gen health) famotidine 20 mg tablet 20 mg PO BID Patient Comments: take 1 tablet by mouth twice a day insulin glargine [Basaglar KwikPen U-100 Insulin] 100 unit/mL (3 mL) insulin pen 40 unit subcut QHS NUVOFLEX 1 cap PO DAILY solifenacin 10 mg tablet 10 mg PO DAILY cholecalciferol (vitamin D3) [Vitamin D3] 50 mcg (2,000 unit) capsule 2,000 unit PO DAILY Jardiance 25 mg Tablet 25 mg PO DAILY Qty: 30 2RF Fiasp FlexTouch U-100 Insulin 100 unit/mL (3 mL) insulin pen 22 unit subcut TID mecobalamin (vitamin B12) 1,000 mcg tablet,chewable 1,000 mcg PO DAILY diltiazem HCl [Cartia XT] 120 mg capsule,extended release 24hr 120 mg PO DAILY tamsulosin 0.4 mg capsule 0.4 mg PO BID Patient Comments: per family hasn't started at home as was in & out of hospital though had prev taken during prev hospitalization. atorvastatin 20 mg tablet 20 mg PO DAILY finasteride 5 mg tablet 5 mg PO DAILY isosorbide mononitrate 30 mg tablet extended release 24 hr 30 mg PO DAILY Qty: 90 3RF Primary Care Provider: Jeff Subramanian Referrals: Devante Ponce MD [Med Staff - Active Staff] - 3-5 Days Jeff Subramanian MD [Primary Care Provider] - Activity Restrictions/Additional Instructions: Workup negative. Follow-up with your cardiology team. If you develop recurrent worsening symptoms, return to the ED for reevaluation. Print Language: [place] Disposition Disposition: Home, Self Care Discharge Date/Time: 01/20/25 03:54
[2025-01-20 01:00] VITALS: BP 135/78; PULSE 74; RESP 17; O2SAT 93
[2025-01-20 02:00] VITALS: BP 135/69; PULSE 73; RESP 16; O2SAT 94
[2025-01-20 03:00] VITALS: BP 138/79; PULSE 72; RESP 16; O2SAT 92
[2025-01-20 03:44] LABS: Troponin T High Sens 2 HR 51 ng/L (<=22)
[2025-01-20 03:51] LABS: Troponin T High Sens 4 HR 53 ng/L (<=22)
[2025-01-20 03:54] VITALS: BP 135/59; PULSE 70; RESP 18; TEMP 36.7; O2SAT 95
== END 2025-01-20 03:54 | disposition home or self-care (01) ==
PROVIDERS: Emergency Provider Emergency Medicine; PCP Family Medicine; Visit Provider Emergency Medicine
DX: R07.9 Chest pain, unspecified (principal); I48.0 Paroxysmal atrial fibrillation; Z79.4 Long term (current) use of insulin; E11.9 Type 2 diabetes mellitus without complications; E78.00 Pure hypercholesterolemia, unspecified; I44.0 Atrioventricular block, first degree; I45.2 Bifascicular block; Z79.01 Long term (current) use of anticoagulants; I25.10 Atherosclerotic heart disease of native coronary artery without angina pectoris; Z87.891 Personal history of nicotine dependence; Z90.49 Acquired absence of other specified parts of digestive tract; Z86.16 Personal history of COVID-19; Z99.89 Dependence on other enabling machines and devices
CPT/HCPCS: 71045; 80048; 84484; 85025; 93005; 99284; A4216

== ENCOUNTER → 2025-01-21 | Outpatient (CLI) | payer MEDICARE, SELFPAY ==
[2025-01-21 17:44] LABS: Absolute Lymphocyte Count 1.71 X10^3/uL (0.83-4.51); Absolute Neutrophil Count 7.3 X10^3/uL (2.0-7.7); Basophil# 0.03 X10^3/uL; Basophil% 0.3 % (0-1); Eosinophil# 0.25 X10^3/uL; Eosinophils% 2.4 % (0-5); Hematocrit 43.5 % (40-54); Hemoglobin 14.4 g/dL (13.0-16.5); Lymphocyte # 1.71 X10^3/ul (0.83-4.51); Lymphocyte % 16.5 % (19-41); Mean Corp Hgb Conc 33.1 g/dL (32-36); Mean Corpuscular Volume 81.5 fL (80-94); Mean Platelet Vol. 10.6 fl (6.2-12.0); Monocyte# 1.06 X10^3/uL; Monocyte% 10.2 % (0-10); NRBC Flagged by Analyzer 0 % (0-5); Neutrophil # 7.25 X10^3/uL (2.7-7.7); Neutrophil % 70.1 % (47-70); Platelet Count 241 K/mm3 (150-450); RBC Distribution Width CV 15.9 % (11.6-14.6); RBC Distribution Width SD 47.5 fl (35.1-43.9); Red Blood Count 5.34 M/mm3 (4.6-6.2); White Blood Count 10.4 K/mm3 (4.4-11.0)
[2025-01-22 07:47] LABS: Pathologist Review May foll
== END | disposition home or self-care (01) ==
LOC: LAB 17:06
PROVIDERS: PCP Family Medicine; Referring Provider Family Medicine; Visit Provider Family Medicine
DX: D72.829 Elevated white blood cell count, unspecified (principal)
CPT/HCPCS: 36415; 85025

== ENCOUNTER → 2025-01-30 | Outpatient (CLI) | payer MEDICARE, SELFPAY | END | disposition home or self-care (01) | LOC: PSN 09:26 | PROVIDERS: PCP Family Medicine; Referring Provider Nurse Practitioner Family; Visit Provider Nurse Practitioner Family | DX: R06.02 Shortness of breath (principal) | CPT/HCPCS: 94060; 94726; 94729 ==

== ENCOUNTER → 2025-02-26 | Outpatient (CLI) | payer MEDICARE, SELFPAY ==
[2025-02-26 14:00] VITALS: PULSE 82; PULSE 84; PULSE 87; PULSE 88; PULSE 89; PULSE 90; PULSE 91; O2SAT 89; O2SAT 90; O2SAT 91; O2SAT 92; O2SAT 94; O2SAT 95
--- NOTE | 2025-02-26 14:07 | CPS ---
PATIENT ARRIVED FOR WALK TESTING VIA MOTORIZED SCOOTER. HE SAID HE USES IT FOR LONG DISTANCES AND CAN WALK SHORT DISTANCES WITHOUT ASSISTANCE. HE DECLINED OFFER OF PUSHING W/C OR WHEELED WALKER FOR TESTING. HE WAS STABLE ON HIS FEET, WALKED SLOW, AND WAS ABLE TO WALK 366 FEET DURING THE TEST. HE STOPPED TO REST AT 4 MINUTES INTO TESTING AND RESTED FOR THE REMAINDER OF THE 6 MINUTES. REST WAS TAKEN D/T INCREASED WOB AND LEG FATIGUE. HE SAID HE DOESN'T USUALLY WALK THAT MUCH.
--- NOTE | 2025-03-02 10:15 | WT_ITS ---
PSN 6 Minute Walk Test 6 Minute Walk Test 6 Minute Walk Test: 6 Minute Walk Test PSN:6-Minute Walk Test Start: 02/26/25 14:00 Freq: Status: Active Protocol: [id number] Document 02/26/25 14:00 [facility] (Rec: 02/26/25 14:37 [facility] [id number]) 6 Minute Walk Test Date Performed 02/26/25 Time Performed 13:45 Height 6 ft 1 in Weight: 264 lb Weight in Pounds 264.[address]: Megan Macario Assistive device None used: Pre-test Oxygen Delivery Room Air Method Pulse Ox (%) 94 Pulse Rate (60-100 82 beats/min) Dyspnea Bruce Scale ( 0 0-10) Exertion Bruce Scale 6 (6-20) 1st minute Oxygen Delivery Room Air Method Pulse Ox (%) 95 Pulse Rate (60-100 88 beats/min) Dyspnea Bruce Scale ( 1 0-10) Number of Rests 0 Taken 2nd minute Oxygen Delivery Room Air Method Pulse Ox (%) 92 Pulse Rate (60-100 90 beats/min) Dyspnea Bruce Scale ( 1 0-10) Number of Rests 0 Taken 3rd minute Oxygen Delivery Room Air Method Pulse Ox (%) 91 Pulse Rate (60-100 89 beats/min) Dyspnea Bruce Scale ( 3 0-10) Number of Rests 0 Taken Reported Symptoms Increased Work of Breathing 4th minute Oxygen Delivery Room Air Method Pulse Ox (%) 89 Pulse Rate (60-100 91 beats/min) Dyspnea Bruce Scale ( 3 0-10) Exertion Bruce Scale 10 (6-20) Number of Rests 1 Taken Reported Symptoms Increased Work of Breathing 5th minute Oxygen Delivery Room Air Method Pulse Ox (%) 90 Pulse Rate (60-100 89 beats/min) Dyspnea Bruce Scale ( 3 0-10) Number of Rests 1 Taken Reported Symptoms Increased Work of Breathing 6th minute Oxygen Delivery Room Air Method Pulse Ox (%) 91 Pulse Rate (60-100 87 beats/min) Dyspnea Bruce Scale ( 2 0-10) Number of Rests 1 Taken Reported Symptoms Increased Work of Breathing Post-test Oxygen Delivery Room Air Method Pulse Ox (%) 95 Pulse Rate (60-100 84 beats/min) Dyspnea Bruce Scale ( 0 0-10) Full Laps Walked 6 Partial Lap, Number 12 of Tiles Walked Total Distance 366 Walked (ft) 02/26/25 14:07 Cardiopulmonary Services by Amna Richter PATIENT ARRIVED FOR WALK TESTING VIA MOTORIZED SCOOTER. HE SAID HE USES IT FOR LONG DISTANCES AND CAN WALK SHORT DISTANCES WITHOUT ASSISTANCE. HE DECLINED OFFER OF PUSHING W/C OR WHEELED WALKER FOR TESTING. HE WAS STABLE ON HIS FEET, WALKED SLOW, AND WAS ABLE TO WALK 366 FEET DURING THE TEST. HE STOPPED TO REST AT 4 MINUTES INTO TESTING AND RESTED FOR THE REMAINDER OF THE 6 MINUTES. REST WAS TAKEN D/T INCREASED WOB AND LEG FATIGUE. HE SAID HE DOESN'T USUALLY WALK THAT MUCH. Initialized on 02/26/25 14:07 - END OF NOTE Interpretation Interpretation: The patient ambulated 366 feet over the course of 6 minutes beginning on room air without assistive devices. Pretesting oxygen saturation was noted to be 94% on room air. With ambulation, the dylon oxygen saturation was 89%. This represents a significant exertional oxygen desaturation, consistent with a pulmonary limitation to exercise tolerance. Recommendations Recommendations: There is no indication for the use of supplemental oxygen at this time. However, close interval follow-up is recommended, given the degree of oxygen desaturation noted during this study.
== END | disposition home or self-care (01) ==
LOC: PSN 13:37
PROVIDERS: PCP Family Medicine; Referring Provider Nurse Practitioner Family; Visit Provider Nurse Practitioner Family
DX: R09.02 Hypoxemia (principal); R06.02 Shortness of breath
CPT/HCPCS: 94618

== ENCOUNTER → 2025-04-01 | Outpatient (CLI) | payer MEDICARE, SELFPAY ==
--- NOTE | 2025-04-01 15:45 | CT_ITS ---
PROCEDURE: CHEST WITHOUT CONTRAST 04/01/2025 REASON FOR EXAM: RESTRICTIVE LUNG DISEASE AND SHORTNESS OF BREATH TECHNIQUE: Chest CT without contrast. Coronal and Sagittal reconstruction series were provided. One or more dose reduction techniques were used (e.g., Automated exposure control, adjustment of the mA and/or kV according to patient size, use of iterative reconstruction technique COMPARISON: None FINDINGS: Mild cardiomegaly. Moderate LAD and circumflex coronary artery calcifications. Aortic valve calcifications. No significant pericardial effusion. Calcified nonaneurysmal thoracic aorta. Normal caliber pulmonary arteries. No bulky mediastinal or hilar adenopathy. Several calcified lymph nodes consistent with old granulomatous disease. No significant findings in the visualized upper abdomen. Gynecomastia. Central airways are patent. Mild diffuse bilateral subpleural reticulation, greatest at the bases. Mild middle and lower lobe bronchiectasis. No significant honeycombing at this time. Minimal punctate ground-glass subpleural nodules in the upper lobes. No focal consolidation, pleural effusion or pneumothorax. No dominant pulmonary mass. No acute osseous abnormality. Diffuse idiopathic skeletal hyperostosis. CT/Chest without Contrast IMPRESSION: 1. Mild pulmonary fibrotic changes as detailed above. No definite acute airspa ce abnormality. 2. Cardiomegaly and coronary artery disease. Reading Location: [facility]
== END | disposition home or self-care (01) ==
LOC: CT 15:41
PROVIDERS: PCP Family Medicine; Referring Provider Nurse Practitioner Family; Visit Provider Nurse Practitioner Family
DX: R06.02 Shortness of breath (principal)
CPT/HCPCS: 71250

== ENCOUNTER → 2025-04-08 | Outpatient (CLI) | payer MEDICARE, SELFPAY ==
[2025-04-08 11:57] LABS: Ferritin 44 ng/mL (37-417)
[2025-04-09 13:08] LABS: ANTINUCLEAR ANTIBODIES DIRECT Negative (Negative)
[2025-04-09 16:09] LABS: Cytoplasmic Ab (C-ANCA) <1:20 titer (Neg:<1:20); Perinuclear Ab (P-ANCA) <1:20 titer (Neg:<1:20)
== END | disposition home or self-care (01) ==
LOC: LAB 10:21
PROVIDERS: PCP Family Medicine; Referring Provider Nurse Practitioner Family; Visit Provider Nurse Practitioner Family
DX: R06.02 Shortness of breath (principal); D64.9 Anemia, unspecified
CPT/HCPCS: 36415; 82728; 86037; 86038; 86200; 86225; 86235; 86431

== ENCOUNTER 2025-04-29 15:27 | Observation (INO) | payer MEDICARE, SELFPAY ==
[2025-04-29] VITALS (8 sets, daily range): BP systolic 107–138; BP diastolic 55–75; PULSE 68–78; RESP 13–22; TEMP 36.1–36.6; O2SAT 94–98; BMI 33.5; BMI 33.2
--- NOTE | 2025-04-29 16:00 | EX.ED.DYSGE1 ---
HPI History of Present Illness Chief Complaint: Syncope Narrative Narrative: Patient is an 80-year-old male presenting to emergency department for a syncopal event. Patient has an extensive past medical history as below including A-fib, restrictive lung disease, sleep apnea, frequent PVCs, CAD and hypertension. Patient states that for the past month he has been off his Eliquis because of financial reasons. Reports that today he was exerting himself outside when he came in to talk to his daughter. States he was leaning against the counter talking to her when he lost consciousness. Daughter states it lasted less than a minute. Patient denies any prodromal symptoms including lightheadedness, dizziness, visual changes, chest pain. Patient reports that he has been short of breath for the past few months. He normally wears oxygen at nighttime only. Denies fever or chills. Denies productive cough. Denies abdominal pain, nausea, vomiting, diarrhea. Denies any dysuria or hematuria. States this is never happened to him before. He did eat and drink today. [facility] Medical History Diastolic dysfunction Dyspnea Diabetes Sleep apnea Atrial fibrillation Cancer Walker as ambulation aid Arthritis Prostate disease Complete edentulism, class III Gastric reflux CPAP (continuous positive airway pressure) dependence History of pain when walking History of edema History of echocardiogram History of stress test Cardiology follow-up encounter Blindness Bladder cancer Restrictive airway disease Morbid obesity Pneumonia due to COVID-19 virus Left lower lobe pneumonia Acute respiratory failure with hypoxia Wears hearing aid Wears glasses Insulin dependent diabetes mellitus Psoriasis High cholesterol Restless legs Back pain Injury of back Dietary restriction Former smoker Shortness of breath on exertion Hypertension Right bundle branch 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 Nonobstructive atherosclerosis of coronary artery Obesity BPH (benign prostatic hyperplasia) Hyperlipidemia Essential (primary) hypertension Atrial fibrillation with RVR (02/05/21) Home Medications ?Medication ?Instructions ?Recorded ?Last Taken ?Type apixaban 5 mg tablet (Eliquis) 5 mg PO BID blood thinner #180 tabs 02/22/21 05/03/24 Rx carvedilol 25 mg tablet 25 mg PO BID heart #180 tabs 02/22/21 05/07/24 09:30 Rx metformin 500 mg tablet,extended 1,000 mg PO BID blood sugar 10/24/21 Unknown History release 24 hr albuterol sulfate 90 mcg/actuation 1 inh inhalation Q6H PRN SOB #8.5 11/30/21 Unknown Rx aerosol inhaler grams finasteride 5 mg tablet 5 mg PO DAILY bph 10/27/22 Unknown History NUVOFLEX 1 cap PO DAILY arthritis 09/22/23 Unknown History famotidine 20 mg tablet 20 mg PO BID misti 09/22/23 05/07/24 09:30 History insulin glargine 100 unit/mL (3 40 unit subcut QHS diabete 09/22/23 Unknown History mL) subcutaneous pen (Basaglar KwikPen U-100 Insulin) turmeric root extract 500 mg 1,000 mg PO DAILY viatmin 10/24/23 Unknown History capsule diltiazem HCl 120 mg 120 mg PO DAILY heart 06/08/24 Unknown History capsule,extended release 24 hr (Cartia XT) tamsulosin 0.4 mg capsule 0.4 mg PO BID bph 07/10/24 07/09/24 History cholecalciferol (vitamin D3) 50 2,000 unit PO DAILY supplement 07/22/24 Unknown History mcg (2,000 unit) capsule (Vitamin D3) solifenacin 10 mg tablet 10 mg PO DAILY bladder 07/22/24 Unknown History empagliflozin 25 mg tablet 25 mg PO DAILY #30 tabs 07/25/24 Unknown Rx (Jardiance) flecainide 100 mg tablet 100 mg PO Q12H heart #180 tabs 08/13/24 Unknown Rx atorvastatin 20 mg tablet 20 mg PO DAILY 09/01/24 Unknown History colestipol 1 gram tablet 1 g PO DAILY PRN [facility] 09/03/24 Unknown History furosemide 40 mg tablet (Lasix) 40 mg PO QAM #60 tabs 09/23/24 Unknown Rx spironolactone 25 mg tablet 25 mg PO DAILY #30 tabs 09/23/24 Unknown Rx isosorbide mononitrate 30 mg 30 mg PO DAILY #90 tabs 10/22/24 Unknown Rx tablet,extended release 24 hr insulin aspart 22 unit subcut TID 01/19/25 Unknown History (niacinamide)(U-100) 100 unit/mL(3 mL) subcutaneous pen (Fiasp FlexTouch U-100 Insulin) mecobalamin (vitamin B12) 1,000 1,000 mcg PO DAILY 01/19/25 Unknown History mcg chewable tablet ferrous gluconate 324 mg (37.5 mg 324 mg PO BID #60 tabs 04/08/25 Unknown Rx iron) tablet Allergy/AdvReac Type Severity Reaction Status Date / Time amoxicillin Allergy Rash Verified 04/29/25 15:29 Family History Sister Colon cancer Brother Diabetes Mother Diabetes Heart disease Cancer Father Heart disease Cancer Diabetes Surgical History Bladder disease Hx of right cataract extraction Hx of colonoscopy Hx of transurethral resection of prostate H/O wrist surgery History of left heart catheterization (02/07/21) Hx of umbilical hernia repair Hx of cholecystectomy Status post surgical manipulation of ankle joint H/O hemorrhoidectomy Social History household members: spouse Smoking Status: Former smoker how long ago did patient quit smokin years ago alcohol intake: never substance use type: does not use caffeine: Yes Type: coffee Number of servings: 1 ROS ROS ED ROS Narrative see HPI EXAM Physical Exam Narrative Exam Narrative: Vital signs: Reviewed General: Alert and oriented. No acute distress. Chronically unwell appearing. HEENT: Head is normocephalic and atraumatic, sinuses nontender, pupils equal round and reactive. Nares are patent. Oropharynx and throat exams normal. Dry mucous membranes. Neck: Supple without lymphadenopathy nontender Cardiovascular: Regular rate and rhythm, no murmurs. No rubs or gallops. Normal S1 and S2 Respiratory: Clear to auscultation bilaterally. No wheezes, rales, rhonchi. On 2 L NC. Abdominal: Soft and nontender. Normal bowel sounds. No guarding or rebound. Nonsurgical abdomen Extremities: No tenderness. No lower extremity edema. No bruising. Normal range of motion. Normal sensation. Skin: No rash or redness. Neurological: Cranial nerves II through XII are grossly intact. Normal strength and sensation. Normal cerebellar function The rest of the physical exam is unremarkable Const Vital Signs: 04/29/25 15:29 04/29/25 15:44 04/29/25 15:44 Temperature 98 F Temperature Source Oral Pulse Rate 78 Respiratory Rate 20 H Respiratory Effort Respiratory Pattern Blood Pressure 115/65 Blood Pressure Mean 81 Pulse Ox 94 95 95 Oxygen Delivery Method Nasal Cannula Room Air Nasal Cannula Oxygen Flow Rate (L/min) 2 2 04/29/25 15:44 04/29/25 16:05 04/29/25 17:28 Temperature Temperature Source Pulse Rate 73 Respiratory Rate 13 Respiratory Effort Normal Non-Labored Respiratory Pattern Normal Blood Pressure 113/75 Blood Pressure Mean 87 Pulse Ox 97 Oxygen Delivery Method Nasal Cannula Nasal Cannula Oxygen Flow Rate (L/min) 2 2 MDM MDM MDM Narrative Medical decision making narrative: Patient is an 80-year-old male presenting to the emergency department for syncopal event. Patient was seen and examined. Vitals are stable. Patient resting in bed comfortably no acute distress. Differential includes but not limited to: ACS, PE, orthostatic hypotension, vasovagal episode, electrolyte abnormality EKG shows sinus rhythm with first-degree AV block. Bifascicular block. No significant ST elevation or depression. No arrhythmia. CBC with no leukocytosis and a normal hemoglobin. BMP with slightly elevated BUN of 24, otherwise no significant abnormalities. Troponin and reflex are baseline for him at 43 and 42. Magnesium within normal limits. CT shows no evidence of pulmonary embolism. No pneumonia or pneumothorax. Fluid bolus given, appears dry on exam and labs appear to be slightly hemoconcentrated. Will be slow with fluids given heart failure history. Discussed findings with patient and daughter at bedside. Recommended admission for further syncopal workup. They were agreeable. Admitted to the hospitalist for further management. Impression syncope hx of CAD Reactive lymph nodes hx of a fib Lab Data Attestation: I reviewed the patient's lab results. Labs: Laboratory Results - last 24 hr 04/29/25 04/29/25 16:00 17:50 WBC 10.3 RBC 5.23 Hgb 14.3 Hct 42.8 MCV 81.8 MCH 27.3 MCHC 33.4 RDW Std Deviation 44.9 H RDW Coeff of Lucia 14.9 H Plt Count 327 MPV 10.5 Immature Gran % (Auto) 0.400 Neut % (Auto) 71.4 H Lymph % (Auto) 14.5 L Trigg % (Auto) 10.5 H Eos % (Auto) 2.8 Baso % (Auto) 0.4 Absolute Neuts (auto) 7.3 Absolute Lymphs (auto) 1.49 Nucleated RBC % 0 Sodium 135 Potassium 4.1 Chloride 100 Carbon Dioxide 19.9 L Anion Gap 15 BUN 24 H Creatinine 1.20 Estim Creat Clear Calc 64.29 Est GFR (MDRD) Non-Af 61 BUN/Creatinine Ratio 19.8 Glucose 155 H Calcium 9.3 Magnesium 2.3 H Troponin T High Sens 43 H D Troponin T Hi Sens 2 Hr 42 H Radiography Diagnostic Testing: Clinical Impression(s) from Imaging Studies Chest CTA 04/29/25 17:15 IMPRESSION: 1. No pulmonary embolism. 2. Scattered mediastinal lymph nodes some of which are upper limits of normal in size and are most likely reactive lymph nodes. Reading Location: [id number] Management Discussion w/another healthcare provider: Hospitalist Discharge Plan Triage Chief Complaint: Syncope ED Provider: Yola Canales Dx/Rx/DC Orders Prescriptions: No Action Eliquis 5 mg tablet 5 mg PO BID Qty: 180 3RF carvedilol 25 mg tablet 25 mg PO BID Qty: 180 3RF metformin 500 mg tablet extended release 24 hr 1,000 mg PO BID albuterol sulfate 90 mcg/actuation HFA aerosol inhaler 1 inh INHALATION Q6H PRN (Reason: SOB) Qty: 8.5 6RF turmeric root extract 500 mg capsule 1,000 mg PO DAILY flecainide 100 mg tablet 100 mg PO Q12H Qty: 180 3RF furosemide [Lasix] 40 mg tablet 40 mg PO QAM Qty: 60 11RF Patient Comments: takes two pills for weight gain >4lbs spironolactone 25 mg tablet 25 mg PO DAILY Qty: 30 11RF ferrous gluconate 324 mg (37.5 mg iron) tablet 324 mg PO BID Qty: 60 3RF colestipol 1 gram tablet 1 g PO DAILY PRN (Reason: [facility]) famotidine 20 mg tablet 20 mg PO BID Patient Comments: take 1 tablet by mouth twice a day insulin glargine [Basaglar KwikPen U-100 Insulin] 100 unit/mL (3 mL) insulin pen 40 unit subcut QHS NUVOFLEX 1 cap PO DAILY solifenacin 10 mg tablet 10 mg PO DAILY cholecalciferol (vitamin D3) [Vitamin D3] 50 mcg (2,000 unit) capsule 2,000 unit PO DAILY Jardiance 25 mg Tablet 25 mg PO DAILY Qty: 30 2RF Fiasp FlexTouch U-100 Insulin 100 unit/mL (3 mL) insulin pen 22 unit subcut TID mecobalamin (vitamin B12) 1,000 mcg tablet,chewable 1,000 mcg PO DAILY diltiazem HCl [Cartia XT] 120 mg capsule,extended release 24hr 120 mg PO DAILY tamsulosin 0.4 mg capsule 0.4 mg PO BID Patient Comments: per family hasn't started at home as was in & out of hospital though had prev taken during prev hospitalization. atorvastatin 20 mg tablet 20 mg PO DAILY finasteride 5 mg tablet 5 mg PO DAILY isosorbide mononitrate 30 mg tablet extended release 24 hr 30 mg PO DAILY Qty: 90 3RF Primary Care Provider: Jeff Subramanian Referrals: Jeff Subramanian MD [Primary Care Provider] - Print Language: Indonesian
[2025-04-29 16:47] LABS: Hematocrit 42.8 % (40-54); Hemoglobin 14.3 g/dL (13.0-16.5); Immature Granulocytes Count 0.040 X10^3/uL (0.0-0.0); Mean Corp Hgb Conc 33.4 g/dL (32-36); Mean Corpuscular Volume 81.8 fL (80-94); Mean Platelet Vol. 10.5 fl (6.2-12.0); NRBC Flagged by Analyzer 0 % (0-5); Platelet Count 327 K/mm3 (150-450); RBC Distribution Width CV 14.9 % (11.6-14.6); RBC Distribution Width SD 44.9 fl (35.1-43.9); Red Blood Count 5.23 M/mm3 (4.6-6.2); White Blood Count 10.3 K/mm3 (4.4-11.0)
[2025-04-29 16:57] LABS: Anion Gap 15 (5-15); BUN 24 mg/dL (4-19); BUN/Creat Ratio 19.8 RATIO (10-20); Calcium,Total 9.3 mg/dL (7.6-11.0); Carbon Dioxide 19.9 mmol/L (21.0-32.0); Chloride 100 mmol/L (98-108); Estimated Creatinine Clearance 64.29 ml/min (50-250); Glucose 155 mg/dL (70-99); Magnesium 2.3 mg/dL (1.5-2.2); Potassium 4.1 mmol/L (3.3-5.1); Troponin T High Sensitivity 43 ng/L (<=22)
--- NOTE | 2025-04-29 17:15 | CT_ITS ---
EXAM: CT Angiography Chest Without and With Intravenous Contrast CLINICAL INDICATION: RULE OUT PE TECHNIQUE: Axial computed tomographic angiography images of the chest without and with intravenous contrast. This CT exam was performed using one or more of the following dose reduction techniques: automated exposure control, adjustment of the mA and/or kV according to patient size, and/or use of iterative reconstruction technique. MIP reconstructed images were created and reviewed. COMPARISON: No relevant prior studies available. FINDINGS: PULMONARY ARTERIES: Unremarkable. No pulmonary embolism. AORTA: No acute findings. No thoracic aortic aneurysm. LUNGS AND PLEURAL SPACES: Unremarkable. No mass. No consolidation. No significant effusion. No pneumothorax. HEART: Unremarkable. No cardiomegaly. No significant pericardial effusion. No evidence of RV dysfunction. MEDIASTINUM: Scattered mediastinal lymph nodes some of which are upper limits of normal in size and are most likely reactive lymph nodes. BONES/JOINTS: No acute fracture. No dislocation. SOFT TISSUES: Unremarkable. LYMPH NODES: See above. CT/CTA Chest W/WO Contrast IMPRESSION: 1. No pulmonary embolism. 2. Scattered mediastinal lymph nodes some of which are upper limits of normal in size and are most likely reactive lymph nodes. Reading Location: [id number]
[2025-04-29] MEDS: 0.9% Normal Saline (1000mL) 1,000 ML 1000 ML IV (17:29)
[2025-04-29 18:31] LABS: Troponin T High Sens 2 HR 42 ng/L (<=22)
--- NOTE | 2025-04-29 19:05 | PCM.HP.STD ---
[facility] - General General Date of Admission: 04/29/25 Date of Service: 04/29/25 Chief Complaint: Syncope. [facility] Narrative INGRIS ALARCON, is a 80 M with a past medical history of essential hypertension; on carvedilol, furosemide and spironolactone, hyperlipidemia; on atorvastatin and colestipol, remote history of tobacco abuse (quit 1975); with subsequent restrictive lung disease, chronic hypoxic respiratory failure; on 2L NC nocturnal, obesity (class I); with BMI of 33.6 this admission, CJ; on CPAP, CAD; nonobstructive on ISMO, paroxysmal atrial fibrillation; on diltiazem, flecainide and with patient noncompliant with apixaban due to prohibitive cost, history of RBBB with LAFB, history of frequent PVCs, DM-2; of unknown control on metformin, empagliflozin, insulin aspart 22 units subcu 3 times daily AC and insulin glargine 40 units SQ at bedtime, history of blindness in Left eye, JASMIN; on ferrous sulfate twice daily, RLS, history of pneumonia due to COVID-19, history of bladder cancer; s/p excision, OAB; on solifenacin, BPH; s/p TURP (2020) on finasteride and tamsulosin twice daily, GERD; on famotidine twice daily, psoriatic arthritis and OA; with chronic back pain on new nuvoflex causing patient to ambulate with a walker prn at baseline who presents to [facility] ER complaining of syncopal event. Mr. Alarcon reports his symptoms began earlier today when he was exerting himself outside and came in to talk to his daughter and was leaning against the counter talking when he suddenly lost consciousness without warning with no significant head injury or other trauma. His daughter informed the ER physician that he lost consciousness for ~1 minute with patient denying lightheadedness, dizziness, visual changes, chest pain, palpitations, heart racing or lower extremity edema but he does admit to increasing shortness of breath over the past few months. The patient states that he did eat and drink today. He denies similar previous episodes. He also denies associated fever, chills, runny nose, sore throat, ear pain, shortness of breath, productive cough, abdominal pain, nausea, vomiting, diarrhea, dysuria, hematuria, headache, rash, recent illness or recent medication changes other than patient stopping apixaban ~1 month ago. In the ER he underwent CTA of the chest with IV contrast that revealed no pulmonary embolism with scattered mediastinal lymph nodes some of which are upper limits of normal size and are most likely reactive with a mildly elevated troponin T of 43 ng/L suspected to be due to acute cardiac strain with otherwise unremarkable laboratory studies and vital signs and he was then admitted to the PCU under observation status for ongoing care for state that is expected to be less than 2 midnights. [facility] Medical History (Updated 04/29/25 @ 20:[address] Sachin Prather, DO) Chronic pain Kidney stones GERD (gastroesophageal reflux disease) Non-smoker Diastolic dysfunction Dyspnea Diabetes Sleep apnea Atrial fibrillation Cancer Walker as ambulation aid Arthritis Prostate disease Complete edentulism, class III Gastric reflux CPAP (continuous positive airway pressure) dependence History of pain when walking History of edema History of echocardiogram History of stress test Cardiology follow-up encounter Blindness Bladder cancer Restrictive airway disease Morbid obesity Pneumonia due to COVID-19 virus Left lower lobe pneumonia Acute respiratory failure with hypoxia Wears hearing aid Wears glasses Insulin dependent diabetes mellitus Psoriasis High cholesterol Restless legs Back pain Injury of back Dietary restriction Former smoker Shortness of breath on exertion Hypertension Right bundle branch 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 Nonobstructive atherosclerosis of coronary artery Obesity BPH (benign prostatic hyperplasia) Hyperlipidemia Essential (primary) hypertension Atrial fibrillation with RVR (02/05/21) Home Medications ?Medication ?Instructions ?Recorded ?Last Taken ?Type apixaban 5 mg tablet (Eliquis) 5 mg PO BID blood thinner #180 tabs 02/22/21 05/03/24 Rx carvedilol 25 mg tablet 25 mg PO BID heart #180 tabs 02/22/21 05/07/24 09:30 Rx metformin 500 mg tablet,extended 1,000 mg PO BID blood sugar 10/24/21 Unknown History release 24 hr albuterol sulfate 90 mcg/actuation 1 inh inhalation Q6H PRN SOB #8.5 11/30/21 Unknown Rx aerosol inhaler grams finasteride 5 mg tablet 5 mg PO DAILY bph 10/27/22 Unknown History NUVOFLEX 1 cap PO DAILY arthritis 09/22/23 Unknown History famotidine 20 mg tablet 20 mg PO BID misti 01/06/24 08/21/24 09:30 History insulin glargine 100 unit/mL (3 40 unit subcut QHS diabete 09/22/23 Unknown History mL) subcutaneous pen (Basaglar KwikPen U-100 Insulin) turmeric root extract 500 mg 1,000 mg PO DAILY viatmin 10/24/23 Unknown History capsule diltiazem HCl 120 mg 120 mg PO DAILY heart 06/08/24 Unknown History capsule,extended release 24 hr (Cartia XT) tamsulosin 0.4 mg capsule 0.4 mg PO BID bph 07/10/24 07/09/24 History cholecalciferol (vitamin D3) 50 2,000 unit PO DAILY supplement 07/22/24 Unknown History mcg (2,000 unit) capsule (Vitamin D3) solifenacin 10 mg tablet 10 mg PO DAILY bladder 07/22/24 Unknown History empagliflozin 25 mg tablet 25 mg PO DAILY #30 tabs 07/25/24 Unknown Rx (Jardiance) flecainide 100 mg tablet 100 mg PO Q12H heart #180 tabs 08/13/24 Unknown Rx atorvastatin 20 mg tablet 20 mg PO DAILY 09/01/24 Unknown History colestipol 1 gram tablet 1 g PO DAILY PRN gen health 09/03/24 Unknown History furosemide 40 mg tablet (Lasix) 40 mg PO QAM #60 tabs 09/23/24 Unknown Rx spironolactone 25 mg tablet 25 mg PO DAILY #30 tabs 09/23/24 Unknown Rx isosorbide mononitrate 30 mg 30 mg PO DAILY #90 tabs 10/22/24 Unknown Rx tablet,extended release 24 hr insulin aspart 22 unit subcut TID 01/19/25 Unknown History (niacinamide)(U-100) 100 unit/mL(3 mL) subcutaneous pen (Fiasp FlexTouch U-100 Insulin) mecobalamin (vitamin B12) 1,000 1,000 mcg PO DAILY 01/19/25 Unknown History mcg chewable tablet ferrous gluconate 324 mg (37.5 mg 324 mg PO BID #60 tabs 04/08/25 Unknown Rx iron) tablet Allergy/AdvReac Type Severity Reaction Status Date / Time amoxicillin Allergy Rash Verified 04/29/25 19:25 Family History Sister Colon cancer Brother Diabetes Mother Diabetes Heart disease Cancer Father Heart disease Cancer Diabetes Surgical History Bladder disease Hx of right cataract extraction Hx of colonoscopy Hx of transurethral resection of prostate H/O wrist surgery History of left heart catheterization (02/07/21) Hx of umbilical hernia repair Hx of cholecystectomy Status post surgical manipulation of ankle joint H/O hemorrhoidectomy Social History household members: spouse Smoking Status: Former smoker how long ago did patient quit smokin years ago alcohol intake: never substance use type: does not use caffeine: Yes Type: coffee Number of servings: 1 ROS ROS Narrative Review of Systems: Constitutional: Patient denies fever or chills. Eyes: Patient denies changes in vision or discharge from eyes with chronic blindness in Left eye as per HPI. ENT: Patient denies runny nose, sore throat or ear pain. Resp: Patient denies shortness of breath or productive cough. CV: Patient admits to syncopal event as per HPI. He denies related chest pain, palpitations, heart racing or lower extremity edema. GI: Patient denies abdominal pain, nausea, vomiting, diarrhea or constipation. : Patient denies dysuria or hematuria. MSK: Patient denies arthralgias or myalgias. Skin: Patient denies rash, abscess, wounds or jaundice. Psych: Patient denies symptoms of uncontrolled depression or anxiety. Neuro: Patient denies headache, paresthesias or focal neurologic deficits. Allergy: Patient denies lip swelling, tongue swelling or urticaria. Hematology: Patient denies easy bleeding or easy bruisability. Endocrinology: Patient denies polyuria, polydipsia, polyphagia or heat/cold intolerance. 14 point ROS otherwise negative except for positives noted above in HPI. Vital Signs Vital Signs Vital Signs: 04/29/25 15:29 04/29/25 15:44 04/29/25 15:44 Temperature 98 F Temperature Source Oral Pulse Rate 78 Respiratory Rate 20 H Respiratory Effort Respiratory Pattern Blood Pressure 115/65 Blood Pressure Mean 81 Pulse Ox 94 95 95 Oxygen Delivery Method Nasal Cannula Room Air Nasal Cannula Oxygen Flow Rate (L/min) 2 2 04/29/25 15:44 04/29/25 16:05 04/29/25 17:28 Temperature Temperature Source Pulse Rate 73 Respiratory Rate 13 Respiratory Effort Normal Non-Labored Respiratory Pattern Normal Blood Pressure 113/75 Blood Pressure Mean 87 Pulse Ox 97 Oxygen Delivery Method Nasal Cannula Nasal Cannula Oxygen Flow Rate (L/min) 2 2 Weight Weight: 254 lb 10.142 oz Body Mass Index (BMI) 33.5 Physical Exam Const alert, oriented x3 and no apparent distress Constitutional Narrative: Obese and nontoxic in appearance. General Appearance: cooperative HEENT normocephalic, head/scalp atraumatic, hearing grossly normal bilaterally and moist oral mucous membranes Eyes PERRL and EOMs intact bilaterally Neck no lymphadenopathy and supple Resp normal respiratory effort, no retractions, no use of accessory muscles and clear to auscultation bilaterally Cardio regular rate and regular rhythm GI normal to inspection, nondistended, normoactive bowel sounds, soft to palpation, non-tender and non-distended GI Narrative: Obese. Extremity normal to inspection, full ROM and no clubbing, cyanosis or edema Skin Skin Narrative: Patient has evidence of rash, abscess, wounds or jaundice. Neuro oriented x3, CN's II-XII intact bilaterally, moves all extremities and no focal motor deficits Sensorium / Orientation: awake, alert, oriented to person, oriented to place and oriented to time Speech: speech normal Psych affect normal Results Medical Records Data Attestation: I reviewed the patient's medical records Lab / Micro Data Attestation: I reviewed the patient's lab results. 04/29/25 16:00 04/29/25 16:00 Labs: Laboratory Results - last 24 hr 04/29/25 16:00: WBC 10.3, RBC 5.23, Hgb 14.3, Hct 42.8, MCV 81.8, MCH 27.3, MCHC 33.4, RDW Std Deviation 44.9 H, RDW Coeff of Lucia 14.9 H, Plt Count 327, MPV 10.5, Immature Gran % (Auto) 0.400, Neut % (Auto) 71.4 H, Lymph % (Auto) 14.5 L, Rains % (Auto) 10.5 H, Eos % (Auto) 2.8, Baso % (Auto) 0.4, Absolute Neuts (auto) 7.3, Absolute Lymphs (auto) 1.49, Nucleated RBC % 0, Sodium 135, Potassium 4.1, Chloride 100, Carbon Dioxide 19.9 L, Anion Gap 15, BUN 24 H, Creatinine 1.20, Estim Creat Clear Calc 64.29, Est GFR (MDRD) Non-Af 61, BUN/Creatinine Ratio 19.8, Glucose 155 H, Calcium 9.3, Magnesium 2.3 H, Troponin T High Sens 43 H D 04/29/25 17:50: Troponin T Hi Sens 2 Hr 42 H Imaging Radiology Impression Chest CTA 04/29/25 17:15 IMPRESSION: 1. No pulmonary embolism. 2. Scattered mediastinal lymph nodes some of which are upper limits of normal in size and are most likely reactive lymph nodes. Reading Location: [facility] Assessment & Plan Assessment/Plan (1) Syncope: QUALIFIERS: Syncope type: unspecified Qualified Code(s): R55 - Syncope and collapse (2) Medical non-compliance: (3) Elevated troponin: (4) Paroxysmal atrial fibrillation: (5) History of CAD (coronary artery disease): PLAN: Plan 1. Syncope - Admit to PCU under observation status. Check echocardiogram to evaluate LVEF. Check carotid Doppler to evaluate for stenosis. Check chemical stress test to evaluate for possible underlying ischemia. Serializes troponin. Give ondansetron IV as needed for nausea vomiting. Give acetaminophen as needed for pain or fever. 2. Paroxysmal atrial fibrillation; on diltiazem, flecainide and with patient noncompliant with apixaban due to prohibitive cost complicating #1 - Patient will be re-started on full regimen including apixaban. Patient strongly encouraged to take his medications as prescribed. 3. CAD; nonobstructive on ISMO compounding #1 & #2 - Resume ISMO as previous. 4. Obesity (class I); with BMI of 33.6 this admission plus CJ; on CPAP adding to the burden of disease outlined from #1 - #3 - Weight loss we recommended. Check TSH. Maintain nocturnal CPAP as before. This complicates his case and may hamper recovery. 5. Remote history of tobacco abuse (quit 1975); with subsequent restrictive lung disease plus chronic hypoxic respiratory failure; on 2L NC nocturnal adding to the medical complexity of #1 - #4 - Stable with no evidence of acute flare at this time. Continue as needed nebulizers. 6. Essential hypertension; on carvedilol, furosemide and spironolactone - Maintain current therapy. Give IV hydralazine as needed for systolic blood pressure greater than 160 mmHg. 7. History of RBBB with LAFB - Noted. 8. History of frequent PVCs - Noted. We will monitor closely on PCU for possible recurrence. 9. DM-2; of unknown control on metformin, empagliflozin, insulin aspart 22 units SQ 3 times daily AC and insulin glargine 40 units SQ at bedtime - ADA/cardiac diet. FSBS q. AC/HS plus SSI. Continue long and short acting insulins at ~60% of previous dose to prevent hypoglycemia. 10. Hyperlipidemia; on atorvastatin and colestipol - Resume present treatment and check Lipid Profile in light of #1. 11. History of blindness in Left eye - Noted. 12. JASMIN; on ferrous sulfate twice daily - Stable with hemoglobin of 14.3 g/dL and MCV of 81.8 fL present on admission. 13. RLS - Stable. 14. History of pneumonia due to COVID-19 - Noted with no signs of recurrence at this time. 15. History of bladder cancer; s/p excision - Noted. 16. OAB; on solifenacin - Continue solifenacin as before. 17. BPH; s/p TURP (2020) on finasteride and tamsulosin twice daily - Present treatment to be continued. 18. GERD; on famotidine twice daily - Maintain H2 salvador as before. 19. Psoriatic arthritis and OA; with chronic back pain on new nuvoflex causing patient to ambulate with a walker prn at baseline - Stable. PT/OT and case management consult treat on rounds in the a.m. further recommendations without appreciated in advance. 20. DVT prophylaxis - Patient re-started on apixaban for #2. Total time: Approximately (but not less than) 85 minutes. Charges/Coding Visit Charges OBSV E&M: 89256 Observ/hosp same date L3
--- NOTE | 2025-04-29 19:27 | ED.RN ---
Family worried about Pt getting too much IV fluids. Per Dr Canales ok to stop fluids at 500 ML
--- NOTE | 2025-04-29 19:45 | CDU_ITS ---
Reason For Study Reason For Study: Syncope Rt. Velocities/BP Lt. Velocities/BP Prox CCA 107.0/17.5 cm/sec. Prox CCA 103.4/17.5 cm/sec. Mid CCA 116.2/15.7 cm/sec. Mid CCA 121.6/21.2 cm/sec. Dist CCA 99.7/15.7 cm/sec. Dist CCA 112.5/17.5 cm/sec. Prox ICA 57.7/13.9 cm/sec. Prox ICA 66.6/21.5 cm/sec. Mid ICA 76.0/19.4 cm/sec. Mid ICA 86.4/19.3 cm/sec. Dist ICA 72.3/17.5 cm/sec. Dist ICA 77.2/21.7 cm/sec. Rt. ICA/CCA = 0.7. Lt. ICA/CCA = 0.7. Prox ECA 132.6/10.2 cm/sec. Prox ECA 94.2/8.4 cm/sec. Rt. Vert. 37.2/5.8 cm/sec. Lt. Vert. 45.0/6.6 cm/sec. Right Extracranial There is heterogeneous, irregular atherosclerotic plaque noted in the right common carotid artery. There is heterogeneous, irregular atherosclerotic plaque noted in the right internal carotid artery. There is heterogeneous, irregular atherosclerotic plaque noted in the right external carotid artery. Antegrade flow is noted in the right vertebral artery. Left Extracranial There is heterogeneous, irregular atherosclerotic plaque noted in the left common carotid artery. There is heterogeneous, irregular atherosclerotic plaque noted in the left internal carotid artery. There is heterogeneous, irregular atherosclerotic plaque noted in the left external carotid artery. Antegrade flow is noted in the left vertebral artery. Procedure Carotid Duplex 07122. This is a Carotid Duplex examination using B-mode, color flow and specral Doppler. The exam was diagnostic. Exam performed in department. VL/Carotid Duplex Ultrasound Interpretation Summary Mild (<50%) stenosis right extracranial internal carotid. Mild (<50%) stenosis left extracranial internal carotid. Acoustic shadowing is noted in the proximal internal carotid arteries bilateral ly, particularly on the right, which obscures cesar-scale imaging of the arterial lumens. Determination of the degree of stenosis is based solely upon velocity criteria. If additional evaluation is desired, an alternative imaging modality could be considered. Flow within the vertebral arteries is antegrade bilaterally. Ordering Physician: Sachin Prather Referring Physician: Yola Canales Performed By: Anoop Liu RVT
--- NOTE | 2025-04-29 19:45 | ECHOD_ITS ---
Reason For Study Reason For Study: SYNCOPE/NEAR SYNCOPE Procedure This was a 2D Doppler, Color Flow transthoracic echocardiogram. Exam performed in department. Left Ventricle Normal LV size. Mild concentric left ventricular hypertrophy. The estimated ejection fraction is 60 %. Normal diastololic function. Right Ventricle Normal RV size. Normal systolic function. Atria The left and right atria are normal. Mitral Valve The mitral valve is structurally normal. No prolapse or stenosis seen. Mild (1+) eccentric mitral valve insufficiency. Tricuspid Valve The tricuspid valve is not well visualized. Normal pulmonary artery pressure. Mild tricuspid valve insufficiency. Aortic Valve Trisinus/trileaflet aortic valve. Mild diffuse aortic valve thickening. Mild focal aortic valve calcification. Mild to moderate aortic stenosis. Peak aortic valve gradient 34 mmHg. Mean aortic valve gradient 17 mmHg. The aortic valve area dimensionless index is 0.46. Pulmonic Valve Trivial pulmonic valve insufficiency. Great Vessels Normal sized aortic root. Normal inferior vena cava. Pericardium/Pleural No pericardial effusion. MMode/2D Measurements & Calculations LVIDd: 5.2 cm IVSd: 1.3 cm LVOT diam: 2.2 cm LVIDs: 3.7 cm LVPWd: 1.3 cm LVOT area: 3.8 cm2 RVDd: 3.7 cm FS: 29.2 % Ao root diam: 3.4 cm LAV(MOD-sp2): 69.0 ml LVAd ap4: 25.7 cm2 LVLd ap4: 7.2 cm EDV(MOD-sp4): 75.1 ml EDV(sp4-el): 78.3 ml LVAs ap4: 15.2 cm2 LVLs ap4: 6.2 cm ESV(MOD-sp4): 30.9 ml ESV(sp4-el): 31.7 ml EF(MOD-sp4): 58.9 % EF(sp4-el): 59.6 % LVAd ap2: 24.0 cm2 SV(MOD-sp4): 44.2 ml SV(MOD-sp2): 42.4 ml LVLd ap2: 6.9 cm SI(MOD-sp4): 18.8 ml/m2 SI(MOD-sp2): 18.1 ml/m2 EDV(MOD-sp2): 69.3 ml EDV(sp2-el): 70.8 ml LVAs ap2: 13.8 cm2 LVLs ap2: 5.9 cm ESV(MOD-sp2): 26.9 ml ESV(sp2-el): 27.1 ml EF(MOD-sp2): 61.1 % SV(sp4-el): 46.7 ml LA dimension(2D): 5.5 cm TAPSE: 2.5 cm Time Measurements MV dec time: 0.21 sec Doppler Measurements & Calculations MV E max spenser: 94.3 cm/sec Lat Peak E' Spenser: 7.5 cm/sec Med Peak E' Spenser: 7.1 cm/sec MV A max spenser: 84.2 cm/sec E/E' lat: 12.5 E/E' med: 13.3 MV E/A: 1.1 MV V2 max: 103.5 cm/sec MV P1/2t max spenser: 114.9 cm/sec Ao V2 max: 286.3 cm/sec MV max P.3 mmHg MV P1/2t: 68.6 msec Ao max P.8 mmHg MV V2 mean: 61.4 cm/sec Ao V2 mean: 205.0 cm/sec MV mean P.7 mmHg MV dec slope: 490.3 cm/sec2 Ao mean P.8 mmHg MV V2 VTI: 27.5 cm MVA(P1/2t): 3.2 cm2 Ao V2 VTI: 67.3 cm AV (velocity ratio): 0.40 MVA(VTI): 3.7 cm2 ANA(I,D): 1.5 cm2 ANA(V,D): 1.6 cm2 LV V1 max: 119.2 cm/sec SV(LVOT): 102.1 ml PA V2 max: 117.9 cm/sec LV V1 max P.7 mmHg PA V2 mean: 85.9 cm/sec LV V1 mean P.2 mmHg LV V1 mean: 85.5 cm/sec LV V1 VTI: 27.0 cm PI dec slope: 121.8 cm/sec2 TR max spenser: 281.9 cm/sec TR max P.8 mmHg ECHO/Echo Complete Interpretation Summary Normal LV size. Mild concentric left ventricular hypertrophy. The estimated ejection fraction is 60 %. Normal diastololic function. Normal RV size. Normal systolic function. Mild (1+) eccentric mitral valve insufficiency. Normal pulmonary artery pressure. Peak aortic valve gradient 34 mmHg. Mean aortic valve gradient 17 mmHg. The aortic valve area dimensionless index is 0.46. When compared to previous echocardiographic study 2023, no significant change e xcept very mild increase in the mean aortic valve gradient from previously 11 to currently 17 Ordering Physician: Sachin Prather Referring Physician: Yola Canales Performed By: Gregoria Pichardo, RDCS, RVT
--- NOTE | 2025-04-29 19:52 | CASEMGMT ---
Care Management Face to Face with patient for initial transition planning/care coordination assessment in the ED.? This instructional writer introduced self and role at [facility]. Patient alert and oriented. Patient willing to have daughter participate in assessment.? Care providers, pharmacy, and demographics verified. Admitting Diagnosis: ?Syncope Other diagnosis history: ?Afib, restrictive lung disease, sleep apnea, PVCs, CAD, hypertension PCP: ?Marilynn Specialists: ?Rosario, Thuy, Modeling Agent ? plans to change after today. Preferred Pharmacy: [facility] Insurance: ?[employer] Prescription Benefit: ?yes Living Will/HPOA: ?Yes, daughter [employer]: daughter Living Arrangements: ?Patient lives alone in a mobile home with 7 steps to enter.? Daughter assists with most ADLs and IADLs.? Goes to patients house daily Transportation: ?daughter DME: O2 at night, 2 Liters thru [employer], shower chair, walker, glucometer, grab bars, scooter HHC: ?none SNF/Rehab: ?none Community Resources: ?none Behavioral Health History: none Patient goals: Patient wishes to discharge home, denies need for home health care at this time. Patient denies any further needs or concerns at this time. Disposition Plan: admission to acute; RN CM/SW to follow for discharge planning needs that may arise. Chelsea Coffey, CLINICAL DATA MANAGER, MANUAL ARTS THERAPY TEACHER
[2025-04-29 20:24] LABS: Troponin T High Sens 4 HR 38 ng/L (<=22)
--- OUTSIDE RECORDS SUMMARY | 2025-04-29 20:57 | XMS RPT_ITS | CCD ---
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, Keti Unavailable [facility], Kaitlyn Unavailable Param, Dr. Aguilar Primary Care Provider Dr. Mathieu Virgen Referring Provider Roof WOOD POLE TREATER, WOOD POLE TREATER-Lonnie Solares Attending Provider Dr. Marvin Reeves Attending Provider Dr. Marvin Reeves Referring Provider Dr. Marvin Reeves Other Provider Yovani WOOD POLE TREATER, ARSALAN-Lonnie Neri Attending Provider Dr. Mathieu Virgen Primary Care Provider Dr. Mathieu Virgen Referring Provider Roof WOOD POLE TREATER, WOOD POLE TREATER-Lonnie Solares Attending Provider Dr. Marvin Reeves Attending Provider Mathieu Virgen MD Primary Care Provider [facility], Keti Unavailable [facility], Kaitlyn Unavailable Mathieu Virgen MD Primary Care Provider [facility], Keti Unavailable [facility], [place] Unavailable Dr. Mathieu Virgen Primary Care Provider Dr. Mathieu Virgen Referring Provider Lauri WOOD POLE TREATER, WOOD POLE TREATER-Lonnie Solares Attending Provider Mathieu Virgen MD Primary Care Provider [facility], Keti Unavailable [facility], [place]aitlyn Unavailable Dr. Mathieu Virgen Primary Care Provider Dr. Mathieu Virgen Referring Provider Dr. Devante Ponce Attending Provider Dr. Kodi Taylor Emergency Provider Dr. Mariza Stevenson Admit Provider Dr. Mariza Stevenson Attending Provider Dr. Mariza Stevenson Other Provider Dr. Narda Kebede Other Provider Unavailable Dr. Robert Mcpherson Attending Provider Dr. Mathieu Virgen Primary Care Provider Dr. Kodi Taylor Emergency Provider Dr. Mariza Stevenson Admit Provider Dr. Mariza Stevenson Attending Provider Dr. Mariza Stevenson Other Provider Dr. Narda Kebede Other Provider Unavailable Dr. Robert Mcpherson Attending Provider Dr. Robert Mcpherson Referring Provider Dr. Mathieu Virgen Referring Provider Yovani WOOD POLE TREATER, WOOD POLE TREATERJosseline Neri Attending Provider [phone] Dr. Mathieu Virgen Primary Care Provider [facility], Keti Unavailable Mathieu Virgen MD Primary Care Provider MELVIN BINGHAM Attending Unavailable MATHIEU VIRGEN Primary Care Unavailable [facility], Keti Unavailable [facility], [place]aitlyn Unavailable [place]agen TOLL LINE INSPECTOR.RN ORTHOPAEDIC, Denisha Unavailable Suppan TOLL LINE INSPECTOR.RN ORTHOPAEDIC, Julianna A Unavailable Suppan TOLL LINE INSPECTOR.RN ORTHOPAEDIC, Julianna A Unavailable Suppan TOLL LINE INSPECTOR.RN ORTHOPAEDIC, Julianna A Unavailable Dr. Mathieu Virgen MD Primary Care Provider Lauri WOOD POLE TREATER-CSergey Attending Provider Lauri ARRIAZA-CSergey Referring Provider Dr. Mathieu Virgen MD Referring Provider Renaldo ARRIAZA-CMegan Attending Provider Renaldo ARRIAZA-CMegan Referring Provider Dr. Mani Esquivel DO Attending Provider Dr. Mani Esquivel DO Emergency Provider Reji Smith MD Attending Provider Reji Smith MD Emergency Provider Tierra Perdomo Attending Provider Tierra Perdomo Referring Provider Dr. Qasim Senior DO Attending Provider Dr. Qasim Senior DO Emergency Provider Dr. Mathieu Virgen MD Attending Provider Dr. Mathieu Vrigen MD Primary Care Provider Tierra Perodmo Attending Provider Renaldo ARRIAZA-Megan Fleming Attending Provider Dr. Mathieu Virgen MD Referring Provider Dr. Devante Ponce MD Attending Provider Dr. Abraham Tierney DO Attending Provider Dr. Abraham Tierney DO Emergency Provider Lauri ARRIAZA-CSergey Attending Provider Renaldo ARRIAZA-CMegan Referring Provider Param SAMUEL, Dr. Aguilar Primary Care Provider Renaldo ARRIAZA-CMegan Attending Provider Megan Blanco Other Provider [phone] Dr. Marvin Reeves DO Attending Provider Param SAMUEL, Dr. Aguilar Primary Care Provider [phone] Dr. Mathieu Virgen MD Referring Provider Renaldo ARRIAZA-CMegan Attending Provider Param SAMUEL, Dr. Aguilar Attending Provider [phone] Dr. Marvin Reeves DO Attending Provider [phone] PARAM, MATHIEU Nix Referring Unavailable PARAM, MATHIEU Nix Primary Care Unavailable ABRIL DUVAL Attending Unavailable CAYDEN TRAVIS Referring Unavailable PARAM, MATHIEU Nix Primary Care Unavailable JULIANNA HOOD Attending Unavailable PARAM, MATHIEU Nix Primary Care Unavailable PARAM, MATHIEU Nix Attending Unavailable PARAM, MATHIEU Nix Primary Care Unavailable DENISHA SHEPARD Attending Unavailable PARAM, MATHIEU Nix Primary Care Unavailable PARAM, MATIHEU Nix Attending Unavailable PARAM, MATHIEU Nix Primary Care Unavailable SUKH HALL Attending Unavailable PARAM, MATHIEU Nix Primary Care Unavailable PARAM, MATHIEU Nix Attending Unavailable PARAM, MATHIEU Nix Primary Care Unavailable PARAM, MATHIEU Nix Referring Unavailable PARAM, MATHIEU Nix Primary Care Unavailable JAMAL MACE Attending Unavailable PARAM, MATHIEU Nix Referring Unavailable PARAM, MATHIEU Nix Primary Care Unavailable JAMAL MACE Referring Unavailable PARAM, MATHIEU Nix Primary Care Unavailable PARAM, MATHIEU Nix Attending Unavailable PARAM, MATHIEU Nix Primary Care Unavailable PARAM, MATHIEU Nix Primary Care Unavailable PARAM, MATHIEU Nix Primary Care Unavailable PARAM, MATHIEU Nix Referring Unavailable PARAM, MATHIEU Nix Primary Care Unavailable Dr. Mathieu Virgen MD Primary Care Provider Dr. Mathieu Virgen MD Referring Provider Tierra Gilbert Attending Unavailabl e Param, Mathieu Primary Care Unavailable Tierra Gilbert Referring Unavailabl e Param, Mathieu Primary Care Unavailable Narda Prather Unavailable Narda Prather Admitting Unavailable Ramiro Suárez Attending Unavailable [facility] Primary Care Unavailable Sara Landry Consulting Unavailable Sara Landry Admitting Unavailable Miley Rodriguez Attending Unavailable [facility] Primary Care Unavailable Mariza Stevenson Attending Unavailable Mariza Stevenson Consulting Unavailable Thuy, Tom Carter Admitting Unavailable Thuy, Silvio Referring Unavailable Thuy, Tom Carter Consulting Unavailable [facility] Primary Care Unavailable Mariza Stevenson Consulting Unavailable Thuy, Silvio Admitting Unavailable Thuy, Tom Carter Attending Unavailable [facility] Primary Care Unavailable [place] Attending Unavailable Megan Macario Attending Unavailable [facility] Primary Care Unavailable [facility] Primary Care Unavailable Sergey Carreon NP Referring Unavailable Sergey Carreon NP Attending Unavailable [facility] Primary Care Unavailable Mani Esquivel Attending Unavailable [facility] Primary Care Unavailable [facility] Attending Unavailable [facility] Referring Unavailable [facility] Primary Care Unavailable Megan Macario Attending Unavailable Megan Macario Referring Unavailable [facility] Primary Care Unavailable Megan Macario Attending Unavailable Megan Macario Referring Unavailable [facility] Primary Care Unavailable [place] Attending Unavailable [facility] Primary Care Unavailable ThuyTom Attending Unavailable Thuy, Silvio Referring Unavailable SuppanHildaJulianna Referring Unavailable SuppJulianna arias Attending Unavailable [facility] Primary Care Unavailable Suppan Julianna Referring Unavailable [facility] Primary Care Unavailable Julianna Hood Attending Unavailable Megan Macario Referring Unavailable Megan Macario Attending Unavailable [facility] Primary Care Unavailable [facility] Primary Care Unavailable Megan Macario Attending Unavailable Megan Macario Referring Unavailable Sara Landry Consulting Unavailable Sara Landry Admitting Unavailable Miley Rodriguez Attending Unavailable [facility] Primary Care Unavailable Miley Rodriguez Consulting Unavailable Mani Esquivel Attending Unavailable [facility] Primary Care Unavailable [facility] Primary Care Unavailable Narda Prather Attending Unavailable Narda Prather Consulting Unavailable Narda Prather Admitting Unavailable Marcus Hodge Attending Unavailable Ramiro Suárez Consulting Unavailable Ramiro Suárez Attending Unavailable Sara Landry Attending Unavailable [place], [facility] Primary Care Unavailable Devante Ponce Attending Unavailable Narda Prather Referring Unavailable [place], [place] Referring Unavailable [place], [facility] Primary Care Unavailable Roof WOOD POLE TREATER, Sergey Solares Attending Unavailable Param, Mathieu Referring Unavailable [place], [facility] Primary Care Unavailable Roof WOOD POLE TREATER, Sergey Solares Attending Unavailable [place], Mathieu Referring Unavailable [place], [facility] Primary Care Unavailable Tierra Gilbert Attending Unavailabl e Devante Ponce Attending Unavailable Param, Mathieu Referring Unavailable Param, [facility] Primary Care Unavailable [place], [facility] Primary Care Unavailable Megan Macario Attending Unavailable [place], Mathieu Referring Unavailable Param, [facility] Primary Care Unavailable [place], Mathieu Referring Unavailable Roof WOOD POLE TREATER, Sergey Solares Attending Unavailable Param, Mathieu Referring Unavailable Megan Macario Attending Unavailable Param, [facility] Primary Care Unavailable Param, [facility] Primary Care Unavailable Talia oLpez Attending Unavailable JohnTalia arias Referring Unavailable Param, [facility] Primary Care Unavailable Megan Macario Referring Unavailable Marvin Reeves Attending Unavailable [place], [facility] Primary Care Unavailable Talia Lopez Attending Unavailable Param, [facility] Primary Care Unavailable Megan Macario Consulting Unavailable Megan Macario Referring Unavailable Marvin Reeves Attending Unavailable Param, [facility] Primary Care Unavailable Megan Macario Attending Unavailable Param, Mathieu Referring Unavailable [place], [facility] Primary Care Unavailable [place], Mathieu Referring Unavailable Roof WOOD POLE TREATER, Sergey Solares Attending Unavailable Param, [facility] Primary Care Unavailable [place], Mathieu Referring Unavailable Roof WOOD POLE TREATER, Sergey Solares Attending Unavailable Reji Smith Attending Unavailable [place], [facility] Primary Care Unavailable Qasim Senior Attending Unavailable [place], [facility] Primary Care Unavailable Abraham Tierney Attending Unavailable [place], [facility] Primary Care Unavailable [place], Mathieu Attending Unavailable [place], Mathieu Referring Unavailable [place], [facility] Primary Care Unavailable Param, [facility] Primary Care Unavailable Tom Daley Referring Unavailable Tom Daley Attending Unavailable [place], [facility] Primary Care Unavailable Megan Macario Attending Unavailable Megan Macario Referring Unavailable Megan Macario Attending Unavailable [place], [facility] Primary Care Unavailable [place], Mathieu Attending Unavailable Param, Mathieu Referring Unavailable [place], Mathieu Primary Care Unavailable [place], [facility] Primary Care Unavailable Roof WOOD POLE TREATER, Sergey Solares Attending Unavailable Roof WOOD POLE TREATER, Sergey Solares Referring Unavailable Allergies Allergy Classification Reported Allergen(s) Allergy Type Date of Onset Reaction(s) Facility Penicillins (antibiotic) (2 sources) Amoxicillin Drug Allergy 05-11-2005 [facility] (20 sources) Amoxicillin; Translations: [AMOXICILLIN] Drug Allergy 05-11-2005 Rash [facility] (1 source) Amoxicillin Drug Allergy 04-08-2025 [facility] Repository Medications Current Medications Medication Drug Class(es) Dates Sig (Normalized) Sig (Original) [id number] 200 actuat albuterol 0.09 mg/actuat metered dose inhaler (20 sources) beta2-Adrenergic Agonist Start: 06-09-2023 End: 01-18-2024 take 2 puff(s) by inhalation every four hours as needed albuterol HFA (VENTOLIN HFA) 90 mcg/actuation inhaler Indications: Viral URI with cough , Bronchitis Inhale 2 Puffs as instructed every 4 hours as needed. 1 Each 1 01/18/2024 Active Start: 11-30-2021 Albuterol Sulf ate Active 1 INH INHALATION EVERY 6 HOURS 8.November 30, 2021 11:36am Start: 07-25-2021 End: 11-30-2021 Albuterol Sulfate Discontinu ed 1 INH INHALATION EVERY 6 HOURS July 25, 2021 5:03pm November 30, 2021 11:37am Start: 07-25-2021 End: 11-30-2021 Albuterol Sulfate 90 mcg/act uation HFA aerosol inhaler Active 1 NMA INHALATION EVERY 6 HOURS as needed for SOB 8.5 6 November 30, 2021 11:36am Start: 07-25-2021 End: 11-30-2021 Albuterol Sulfate Active 1 I NH INHALATION EVERY 6 HOURS 8.5 November 30, 2021 10:36am Comment on above: Inhale 2 Puffs as in structed every 4 hours as needed. apixaban 5 mg oral tablet (20 sources) Factor Xa Inhibitor Start: 02-08-20 End: 03-27-20 26 take 1 tablet by mouth twice daily Apixaban (Eliquis) 5 mg tablet Active 5 mg PO TWICE A DAY 180 3 February 22, 2021 3:05pm blood thinner Comment on above: Take 1 tablet by srikanth th twice daily. Take 1 tablet by srikanth th two times a day. 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 6 Each 4 Active carvedilol 25 mg oral tablet (20 sources) alpha-Adrenergic Salvador, beta-Adrenergic Salvador Start: 02-07-2021 End: 01-13-2025 take 1 tablet by mouth twice daily Carvedilol 25 mg tablet Active 25 mg PO TWICE A DAY 180 3 February 22, 2021 3:06pm heart Start: 02-05-2021 End: 02-07-2021 take 1 tablet by mouth twice daily Carvedilol (Coreg) 12.5 mg Tablet Discontinued 12.5 mg PO TWICE A DAY February 05, 2021 12:00am February 07, 2021 10:53am blood pressure Comment on above: Take 25 mg by mouth twice daily. Take 1 tablet by srikanth twice daily. Take 1 tablet by [facility] two times a day. cholecalciferol 0.05 mg oral capsule (8 sources) Vitamin D Start: take 1 capsule by mouth once daily Cholecalciferol (Vitamin D3) (Vitamin D3) 50 mcg (2,000 unit) capsule Active 2000 U PO DAILY July 22, 2024 1:00am supplement colestipol hydrochloride 1000 mg oral tablet (20 sources) Bile Acid Sequestrant Start: 022 End: Colestipol 1 gram tablet Active 1 g PO DAILY as needed for gen health September 03, 2024 4:32pm Start: 01-12-2022 End: 01-12-2023 take 1 tablet by mouth every other day colestipol (COLESTID) 1 gram tablet Indications: Diarrhea, unspecified type Take 1 tablet by mouth every other day. 45 tablet 3 01/12/2022 03/06/2022 Discontinued Start: 02-05-2021 End: 10-24-2021 Colestipol 1 gram Tablet Discontinued 1 g PO DAILY February 05, 2021 12:00am October 24, 2021 12:27pm cholesterol Start: 07-26-2020 End: 01-30-2022 Colestipol 1 gram tablet Discontinued 1 g PO TWICE A DAY October 24, 2021 12:23pm January 30, 2022 11:32am cholesterol Comment on above: Take 1 tablet by [facility] twice daily. Take 1 tablet by [facility] every other day. Take 1 tablet by [facility] once daily. 24 hr dilTIAZem hydrochloride 120 mg extended release oral capsule (20 sources) Calcium Channel Salvador Start: 11-23-2022 End: 02-22-2023 dilTIAZem CD (CARDIZEM CD, CARTIA XT) 120 mg 24 hr capsule Start: 03-02-2021 End: 11-24-2025 take 1 capsule by mouth once daily Diltiazem Hcl 120 mg capsule,extended release 24hr Discontinued 120 mg PO DAILY 90 3 July 18, 2021 5:20pm June 08, 2024 5:28am Start: 02-22-2021 End: 06-23-2021 take 1 capsule by mouth twice daily Diltiazem Hcl 120 mg capsule,extended release 24hr Discontinued 120 mg PO TWICE A DAY 180 February 22, 2021 3:27pm June 23, 2021 3:35pm Start: 02-07-2021 End: 02-22-2021 take 1 capsule by mouth once daily Diltiazem Hcl 120 mg capsule,extended release 24hr Discontinued 120 mg PO DAILY 90 February 22, 2021 3:06pm February 22, 2021 3:28pm Comment on above: Take 1 capsule by mo [facility] once daily. doxycycline hyclate 100 mg oral tablet (18 sources) Tetracycline-clas s Drug Start: 06-11-2023 End: 06-21-2023 take 1 tablet by mouth twice daily doxycycline (VIBRA-TABS) 100 mg tablet Take 1 tablet by mouth twice daily for 10 days. 20 tablet 0 06/11/2023 06/21/2023 Active Start: 10-10-2021 End: 10-24-2021 take 1 capsule by mouth twice daily Doxycycline Hyclate 100 mg capsule Discontinued 100 mg PO TWICE A DAY October 10, 2021 1:00am October 24, 2021 12:23pm Start: 05-21-2021 End: 05-31-2021 take 1 tablet by mouth twice daily doxycycline monohydrate 100 mg tablet Indications: Sebaceous cyst Take 1 tablet by mouth twice daily for 10 days. 20 tablet 05/21/2021 05/31/2021 Comment on above: [facility] 10 [facility]. empagliflozin 25 mg oral tablet (20 sources) Sodium-Glucose Cotransporter 2 Inhibitor Start: 07-25-20 End: 07-29-20 take 1 tablet by mouth once daily Empagliflozin (Jardiance) 25 mg Tablet Active 25 mg PO DAILY 30 July 25, 2024 1:00am Start: 06-22-2022 End: 11-29-2022 take 1 tablet by mouth once daily at breakfast empagliflozin (JARDIANCE) 10 mg tablet Take 1 tablet by mouth daily with breakfast. 30 tablet 5 06/22/2022 11/29/2022 Discontinued Comment on above: Take 1 tablet by srikanth daily with breakfast. famotidine 20 mg oral tablet (20 sources) Histamine-2 Receptor Antagonist Start: 06-19-2023 End: 01-26-2025 take 1 tablet by mouth twice daily Famotidine 20 mg tablet Active 20 mg PO TWICE A DAY September 22, 2023 1:00am misti Start: 03-02-2023 End: 05-31-2023 take 1 tablet by mouth twice daily famotidine (PEPCID) 20 mg tablet Indications: Nausea Take 1 tablet by mouth twice daily. 60 tablet 2 03/02/2023 05/31/2023 Active Comment on above: Take 1 tablet by srikanth th twice daily. Take 1 tablet by srikanth th two times a day. ferrous gluconate 324 mg oral tablet (1 source) Start: 04-08-2025 take 1 tablet by mouth twice daily Ferrous Gluconate 324 mg (37.5 mg iron) tablet Active 324 mg PO TWICE A DAY 60 April 08, 2025 12:00am finasteride 5 mg oral tablet (20 sources) 5-alpha Reductase Inhibitor Start: 12-13-2021 End: 11-26-2025 take 1 tablet by mouth once daily Finasteride 5 mg tablet Active 5 mg PO DAILY October 27, 2022 1:00am bph Start: 11-18-2019 End: 11-03-2021 take 1 tablet by mouth once daily Finasteride 5 mg tablet Discontinued 5 mg PO DAILY September 20, 2021 1:00am October 24, 2021 12:25pm flecainide acetate 100 mg oral tablet (20 sources) Antiarrhythmic Start: 11-07-2024 take 1 tablet by mouth twice daily flecainide (TAMBOCOR) 100 mg tablet Take 100 mg by mouth two times a day. 11/07/2024 Active Start: 08-13-2024 take 1 tablet by srikanth th every twelve hours Flecainide 100 mg tablet Active 100 mg PO Q12H 180 August 13, 2024 2:53pm heart Start: 10-10-2021 End: 02-03-2022 take 1 tablet by mouth twice daily flecainide (TAMBOCOR) 150 mg tablet Take 150 mg by mouth twice daily. 0 10/10/2021 02/03/2022 Discontinued (Course of therapy completed) Start: 10-10-2021 End: 12-02-2024 take 1 tablet by mouth every twelve hours Flecainide 150 mg tablet Discontinued 150 mg PO Q12H 60 11 July 13, 2023 2:37pm September 22, 2023 11:44am Comment on above: Take 1 tablet by srikanth th every 12 hours. Prescribed by outside envelope folder Take 150 mg by mouth twice daily. 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 15 mL 3 04/03/2025 Active Start: 09-22-2023 Insulin Glargi ne (Basaglar Kwikpen U-100 Insulin) 100 unit/mL (3 mL) insulin pen Active 40 U SC AT BEDTIME September 22, 2023 1:00am diabete Start: 09-22-2023 Insulin Glargi ne (Basaglar Kwikpen U-100 Insulin) 100 unit/mL (3 mL) insulin pen Active 60 U SC AT BEDTIME September 22, 2023 1:00am Start: 09-22-2023 Insulin Glargi ne (Basaglar Kwikpen U-100 Insulin) 100 unit/mL (3 mL) insulin pen Active 90 UNIT SC AT BEDTIME September 22, 2023 12:00am Start: 09-29-2022 insulin glargi ne (BASAGLAR KWIKPEN U-100 INSULIN) 100 unit/mL (3 mL) Inject 90 Units subcutaneously daily at bedtime. 15 mL 3 09/29/2022 Active Start: 01-30-2022 End: 10-24-2023 Insulin Glargine (Lantus Margaret ostar U-100 Insulin) 100 unit/mL (3 mL) insulin pen Discontinued 90 U SC EVERY EVENING January 30, 2022 11:30am October 24, 2023 11:51am diabetes Start: 11-03-2021 End: 12-02-2024 insulin glargine (BASAGLAR K WIKPEN U-100 INSULIN) 100 unit/mL (3 mL) Inject 90 Units subcutaneously daily at bedtime. 15 mL 3 09/29/2022 12/02/2024 Discontinued Start: 10-24-2021 End: 01-30-2022 Insulin Glargine (Lantus Margaret ostar U-100 Insulin) 100 unit/mL (3 mL) insulin pen Discontinued 80 U SC EVERY EVENING October 24, 2021 12:24pm January 30, 2022 11:32am diabetes Start: 04-21-2021 End: 09-23-2021 insulin glargine (LANTUS MARGARET OSTAR U-100 INSULIN) 100 unit/mL (3 mL) Indications: Type 2 diabetes mellitus without complication, with long-term current use of insulin (HCC) Inject 72 Units subcutaneously daily at bedtime. 8 Pen 5 07/07/2021 09/23/2021 Discontinued (Adjust Sig - Block E-Cancel) Start: 02-05-2021 End: 10-24-2021 Insulin Glargine (Lantus Margaret ostar U-100 Insulin) 100 unit/mL (3 mL) Insulin Pen Discontinued 72 U SC EVERY EVENING February 05, 2021 12:00am October 24, 2021 12:27pm diabetes Start: 11-05-2020 End: 04-21-2021 insulin glargine (LANTUS [...] bedtime. Use this OR Semglee, not both. Insulin Syringe-Needle U-100 1/2 mL 29 x 1/2 syrg (20 sources) Start: 07-23-20 15 Insulin Syringe-Needle U-100 1/2 mL 29 x [...] Z79.4) Diabetes mellitus type 2, insulin dependent. mecobalamin 1 mg chewable tablet (6 sources) Start: 01-20-20 25 take 1 tablet by mouth once daily Mecobalamin (Vitamin B12) 1,000 mcg tablet,chewable Active 1000 ug PO DAILY January 19, 2025 12:00am 24 hr metFORMIN hydrochloride 500 mg extended release oral tablet (20 sources) Biguanide Start: 10-24-19 End: 10-09-19 26 Metformin 500 mg tablet extended release 24 hr Active 1000 mg PO TWICE A DAY October 24, 2021 1:00am blood sugar Start: 11-04-2020 End: 09-19-2024 take 2 tablets by mouth twice daily before mealtime metFORMIN ER (GLUCOPHAGE XR) 500 mg 24 hr tablet Indications: Type 2 diabetes mellitus without complication, with long-term current use of insulin (HCC) Take 2 tablets by mouth two times a day before meals. 360 tablet 3 09/20/2023 Active Start: 04-21-2015 End: 10-24-2021 take 1 tablet by mouth twice daily at mealtime Metformin 1,000 MG tablet Discontinued 1000 mg PO TWICE DAILY WITH MEALS April 21, 2015 12:00am October 24, 2021 12:26pm diabetes Comment on above: Take 2 tablets by mo uth twice daily before meals. Take 2 tablets by mo uth two times a day before meals. mupirocin 0.02 mg/mg topical ointment (5 sources) RNA Synthetase Inhibitor Antibacterial Start: 04-09-2024 End: 04-14-2024 mupirocin (BACTROBAN) 2 % ointment Apply to affected area three times a day for 5 days. 30 g 0 04/09/2024 04/14/2024 Active NUVOFLEX (9 sources) Start: 09-22-2023 NUVOFLEX Active 1 NMA PO DAILY September 22, 2023 1:00am arthritis Start: 09-22-2023 NUVOFLEX Activ e 1 NMA PO DAILY September 22, 2023 1:00am Start: 09-22-2023 take 2 capsules by m out once daily NUVOFLEX Active 2 CAP PO DAILY September 22, 2023 12:00am OTC NUTRITIONAL SUPPLEMENT (20 sources) OTC NUTRITIONAL SUPPLEMENT NUVOFLEX Active OXYGEN, HOME THERAPY, (20 sources) Start: 08-05-20 OXYGEN, HOME THERAPY, Indications: Chronic respiratory failure with hypoxia (HCC) 2 L/min by Nasal Cannula route continuous. 1 Each 08/05/2024 Active solifenacin succinate 10 mg oral tablet (20 sources) Cholinergic Muscarinic Antagonist Start: 07-22-20 take 1 tablet by mouth once daily Solifenacin 10 mg tablet Active 10 mg PO DAILY July 22, 2024 1:00am bladder spironolactone 25 mg oral tablet (20 sources) Aldosterone Antagonist Start: 09-23-19 take 1 tablet by mouth once daily Spironolactone 25 mg tablet Active 25 mg PO DAILY 30 September 23, 2024 1:00am Start: 01-30-2022 End: 06-20-2024 take 1 tablet by mouth once daily Spironolactone 25 mg tablet Discontinued 25 mg PO DAILY 30 January 30, 2022 12:00am June 16, 2024 4:48pm Comment on above: Take 25 mg by mouth once daily. Take 1 tablet by srikanth once daily. tamsulosin hydrochloride 0.4 mg oral capsule (20 sources) alpha-Adrenergic Salvador Start: 07-10-2024 take 1 capsule by mouth twice daily Tamsulosin 0.4 mg capsule Active 0.4 mg PO TWICE A DAY July 10, 2024 12:00am bph Start: 07-08-2024 take 1 capsule by mo [facility] every twelve hours tamsulosin (FLOMAX) 0.4 mg Take 1 capsule by mouth every 12 hours. 07/08/2024 Active Start: 02-07-2019 End: 11-29-2022 take 1 capsule by mouth once daily Tamsulosin (Flomax) 0.4 mg capsule Discontinued 0.4 mg PO DAILY October 10, 2021 1:00am January 30, 2022 11:34am Comment on above: Take 0.4 mg by mouth once daily. Prescribed by Dr. Daley, Urologist [facility] (1 source) Start: 09-22-2023 take 1000 mg by mouth once daily TUMERIC Active 1000 MG PO DAILY September 22, 2023 12:00am Turmeric extract (20 sources) TURMERIC ORAL Ta ke by mouth. Active Turmeric Root Extract 500 mg capsule (8 sources) Start: 10-24-2023 take 1 capsule by mouth once daily Turmeric Root Extract 500 mg capsule Active 1000 mg PO DAILY October 24, 2023 1:00am viatmin Start: 10-24-2023 take 1 capsule by mo uth once daily Turmeric Root Extract 500 mg capsule Active 1000 mg PO DAILY October 24, 2023 1:00am vitamin b12 1 mg oral tablet (20 sources) Vitamin B12 Start: 07-29-2024 End: 01-25-2025 take 1 tablet by mouth once daily cyanocobalamin (VITAMIN B-12) 1,000 mcg tab Indications: Vitamin B12 deficiency Take 1 tablet by mouth once daily. 30 tablet 5 07/29/2024 Active Completed/Discontinued Medications Medication Drug Class(es) Dates Sig (Normalized) Sig (Original) amiodarone hydrochloride 200 mg oral tablet (16 sources) Antiarrhythmic Start: 06-23-2021 End: 07-18-2021 take 1 tablet by mouth twice daily Amiodarone 200 mg tablet Discontinued 200 mg PO TWICE A DAY 28 0 June 23, 2021 12:00am July 18, 2021 5:19pm aspirin 81 mg delayed release oral tablet (20 sources) Platelet Aggregation Inhibitor, Nonsteroidal Anti-inflammatory Drug Start: 02-22-2021 End: 12-11-2024 take 1 tablet by mouth once daily Aspirin 81 mg tablet,delayed release (/EC) Discontinued 81 mg PO DAILY 90 3 February 22, 2021 12:00am December 11, 2024 1:40pm hematuria Start: 02-07-2021 End: 02-22-2021 take 1 tablet by mouth once daily Aspirin 81 mg Tablet,Chewable Discontinued 81 mg PO DAILY@0800 30 0 February 07, 2021 12:00am February 22, 2021 3:06pm Comment on above: Take 81 mg by mouth once daily. atenolol 50 mg oral tablet (1 source) beta-Adrenergic Salvador Start: 0 End: 1 take 1 tablet by mouth once daily atenolol (TENORMIN) 50 mg tablet Indications: Essential hypertension with goal blood pressure less than 140/90 Take 1 tablet by mouth once daily. 90 tablet 3 07/26/2020 01/31/2021 Discontinued (Course of therapy completed) benzonatate 100 mg oral capsule (18 sources) Non-narcotic Antitussive Start: 3 End: 3 take 1 capsule by mouth three times daily as needed benzonatate (TESSALON PERLE) 100 mg capsule Indications: Viral URI with cough , Bronchitis Take 1 capsule by mouth three times daily as needed for up to 10 days. 30 capsule 0 06/09/2023 06/19/2023 Start: 09-20-2021 End: 10-24-2021 take 100-200 mg by mouth three times daily Benzonatate 100 mg capsule Discontinued 100 - 200 mg PO THREE TIMES A DAY September 20, 2021 1:00am October 24, 2021 12:27pm Comment on above: Take 1 capsule by [facility] three times daily as needed for up to 10 days. cephalexin 500 mg oral capsule (20 sources) Cephalosporin Antibacterial Start: 4 End: 5 take 1 capsule by mouth three times daily Cephalexin 500 mg capsule Discontinued 500 mg PO THREE TIMES A DAY 21 7 0 September 01, 2024 1:00am September 23, 2024 4:46pm Start: 05-31-2024 End: 07-10-2024 take 1 capsule by mouth every six hours Cephalexin 500 mg capsule Discontinued 500 mg PO EVERY 6 HOURS June 08, 2024 12:00am July 10, 2024 3:45am on more dose dexamethasone 4 mg oral tablet (16 sources) Corticosteroid Start: 09-20-2021 End: 10-24-2021 take 6 mg by mouth once daily Dexamethasone 4 mg Tablet Discontinued 6 mg PO DAILY 12 8 0 September 20, 2021 1:00am October 24, 2021 12:26pm Start: 09-20-2021 End: 10-24-2021 take 6 mg by mouth once daily Dexamethasone Discontinu ed 6 MG PO DAILY 12 September 20, 2021 12:00am October 24, 2021 11:26am diclofenac sodium 0.01 mg/mg topical gel (20 [...] times daily. dutasteride 0.5 mg oral capsule (18 sources) 5-alpha Reductase Inhibitor Start: 09-22-2021 End: 10-27-2022 take 1 capsule by mouth once daily Dutasteride 0.5 mg capsule Discontinued 0.5 mg PO DAILY October 24, 2021 1:00am October 27, 2022 6:09pm Comment on above: Take 0.5 mg by mouth once daily. furosemide 40 mg oral tablet (20 sources) Loop Diuretic Start: 09-03-2024 End: 09-23-2024 take 1 tablet by mouth twice daily Furosemide (Lasix) 40 mg tablet Discontinued 40 mg PO TWICE A DAY 60 September 03, 2024 5:04pm September 23, 2024 4:58pm Start: 07-25-2024 End: 02-18-2025 take 1 tablet by mouth once daily in the morning Furosemide (Lasix) 40 mg tablet Active 40 mg PO EVERY MORNING 60 September 23, 2024 4:56pm Start: 02-04-2024 End: 06-20-2024 take 1 tablet by mouth once daily furosemide (LASIX) 40 mg tablet Indications: Varicose veins of both lower extremities with inflammation , Venous incompetence , Bilateral leg edema Take 1 tablet by mouth once daily. 3 tablet 02/28/2024 06/20/2024 Discontinued hydroCHLOROthiazide 12.5 mg / losartan potassium 100 mg oral tablet (20 sources) Thiazide Diuretic, Angiotensin 2 Receptor Salvador Start: 06-23-2021 take 1 tablet by mouth once daily Losartan-Hydrochlorothiazide Active 1 TABLET PO DAILY June 22, 2021 11:00pm Start: 05-21-2021 End: 11-01-2024 Losartan-Hydrochlorothiazide 100-12.5 mg tablet Discontinued 1 {tbl} PO DAILY September 01, 2024 1:00am September 03, 2024 4:34pm Comment on above: Take 1 tablet by srikanth th once daily. insulin glargine-yfgn (SEMGLEE,INSULIN GLARG-YFGN,PEN) 100 [...] bedtime. Use this OR Lantus, not both. 3 ml insulin lispro 100 unt/ml pen injector (20 sources) Insulin Analog Start: 12-25-2023 End: 12-02-2024 insulin lispro (HUMALOG KWIKPEN INSULIN) 100 unit/mL Indications: Type 2 diabetes mellitus without complication, with long-term current use of insulin (HCC) Inject 20 Units subcutaneously three times a day before meals. Getting through [facility] 5 Each 1 12/25/2023 12/02/2024 Discontinued Start: 12-06-2022 End: 12-25-2023 insulin lispro (HUMALOG KWIK PEN INSULIN) 100 unit/mL Indications: Type 2 diabetes mellitus without complication, with long-term current use of insulin (HCC) Inject 22 Units subcutaneously three times daily before meals. Getting through [facility] 5 Each 1 12/06/2022 12/25/2023 Discontinued Start: 11-03-2021 End: 12-29-2021 insulin lispro (HUMALOG KWIK PEN INSULIN) 100 unit/mL Indications: Type 2 diabetes mellitus without complication, with long-term current use of insulin (HCC) Inject 26 Units subcutaneously three times daily before meals. 5 Pen 1 12/29/2021 Active Start: 10-24-2021 End: 01-19-2025 Insulin Lispro (Humalog Kwik pen Insulin) 100 unit/mL insulin pen Discontinued 26 U SC THREE TIMES A DAY October 24, 2021 12:24pm January 19, 2025 11:35pm diabetes Start: 05-25-2021 End: 08-18-2021 insulin lispro (HUMALOG KWIK PEN INSULIN) 100 unit/mL Indications: Type 2 diabetes mellitus without complication, with long-term current use of insulin ([facility]) Inject 15 Units subcutaneously three times daily before meals for 14 days. 5 Pen 1 05/27/2021 08/18/2021 Discontinued Start: 02-05-2021 End: 10-24-2021 Insulin Lispro (Humalog Kwik pen Insulin) 100 unit/mL Insulin Pen Discontinued 17 U SC THREE TIMES A DAY February 05, 2021 12:00am October 24, 2021 12:27pm diabetes Comment on above: Inject 26 Units subc utaneously three times daily before meals. Inject 22 Units subc utaneously three times daily before meals. Getting through [facility] Inject 20 Units subc utaneously three times a day before meals. Getting through [facility] 24 hr isosorbide mononitrate 30 mg extended release oral tablet (20 sources) Nitrate Vasodilator Start: 09-01-20 End: 10-22-19 take 1 tablet by mouth once daily, then take 1 tablet by mouth every twenty-four hours Isosorbide Mononitrate 30 mg tablet extended release 24 hr Discontinued 30 mg PO DAILY 30 September 20, 2024 1:00am October 22, 2024 12:34pm Start: 04-08-2022 End: 05-04-2022 take 1 tablet by mouth once daily, then take 1 tablet by mouth every twenty-four hours Isosorbide Mononitrate 30 mg tablet extended release 24 hr Discontinued 30 mg PO DAILY 30 0 April 08, 2022 12:00am May 04, 2022 9:04am lisinopril 20 mg oral tablet (1 source) Angiotensin Converting Enzyme Inhibitor Start: 01-24-2021 End: 01-31-2021 take 1 tablet by mouth once daily lisinopril (ZESTRIL) 20 mg tablet Indications: Essential hypertension Take 1 tablet by mouth once daily. 30 tablet 2 01/24/2021 01/31/2021 Discontinued (Course of therapy completed) losartan potassium 25 mg oral tablet (20 sources) Angiotensin 2 Receptor Salvador Start: 12-02-2024 End: 12-02-2025 take 0.5 tablet by mouth once daily losartan (COZAAR) 25 mg tablet Indications: Essential hypertension Take 0.5 tablets by mouth once daily. 45 tablet 3 12/02/2024 01/26/2025 Discontinued Start: 09-03-2024 End: 11-12-2025 take 1 tablet by mouth once daily Losartan 25 mg tablet Discontinued 25 mg PO DAILY 90 3 September 03, 2024 5:04pm December 11, 2024 1:40pm Start: 08-13-2024 End: 09-03-2024 take 1 tablet by mouth once daily Losartan 50 mg tablet Discontinued 50 mg PO DAILY 90 3 August 13, 2024 2:53pm September 03, 2024 5:05pm Start: 07-25-2024 End: 07-29-2025 take 1 tablet by mouth once daily Losartan 100 mg Tablet Discontinued 100 mg PO DAILY 30 0 July 25, 2024 1:00am August 13, 2024 2:54pm Start: 02-05-2021 End: 06-23-2021 Losartan 25 mg Tablet Discon tinued 12.5 mg PO DAILY February 05, 2021 12:00am June 23, 2021 2:59pm blood pressure Start: 02-05-2021 End: 06-23-2021 take 12.5 mg by mouth once daily Losartan Discontinued 12.5 MG PO DAILY February 04, 2021 11:00pm June 23, 2021 1:59pm nitrofurantoin, macrocrystals 25 mg / nitrofurantoin, monohydrate 75 mg oral capsule (8 sources) Nitrofuran Antibacterial Start: 07-11-2024 End: 07-22-2024 take 1 capsule by mouth every twelve hours at mealtime Nitrofurantoin Monohyd/M-Cryst (Macrobid) 100 mg capsule Discontinued 100 mg PO Q12H 6 3 0 July 11, 2024 12:00am July 22, 2024 6:13pm must administer with a meal/food ondansetron 4 mg disintegrating oral tablet (12 sources) Serotonin-3 Receptor Antagonist Start: 03-01-2023 End: 09-22-2023 take 1 tablet by mouth every eight hours as needed for nausea Ondansetron 4 mg tablet,disintegrati ng Discontinued 4 mg PO EVERY 8 HOURS NEEDED as needed for Nausea 10 0 March 01, 2023 12:00am September 22, 2023 11:42am 24 hr oxybutynin chloride 10 mg extended release oral tablet (8 sources) Cholinergic Muscarinic Antagonist Start: 05-05-2024 End: 07-10-2024 take 1 tablet by mouth once daily Oxybutynin Chloride 10 mg tablet extended release 24hr Discontinued 15 mg PO DAILY May 05, 2024 12:00am July 10, 2024 9:36pm perflutren lipid microspheres 1.3 mL in NaCl (PF) 0.9% 10 mL injection ([employer]) (20 sources) Start: 01-24-2021 End: 04-25-2022 perflutren lipid microspheres 1.3 mL in NaCl (PF) 0.9% 10 mL injection (DEFINITY) polymyxin b [id number] unt/ml / trimethoprim 1 mg/ml ophthalmic solution (17 sources) Dihydrofolate Reductase Inhibitor Antibacterial, Polymyxin-class Antibacterial Start: 11-21-2021 End: 03-06-2022 take 1 drop(s) into the eye(s) four times daily trimethoprim-polymy devonte (POLYTRIM) 10,000 unit- 1 mg/mL ophthalmic solution Indications: Conjunctivitis of both eyes, unspecified conjunctivitis type Use 1 Drop in both eyes four times daily. Do not fill after 12/16/2021. 10 mL 0 11/21/2021 03/06/2022 Discontinued Comment on above: Use 1 Drop in both e yes four times daily. Do not fill after 12/16/2021. potassium chloride 20 meq extended release oral tablet (8 sources) Start: 09-03-2024 End: 09-23-2024 take 1 tablet by mouth twice daily Potassium Chloride 20 mEq tablet extended release Discontinued 20 meq PO TWICE A DAY 60 September 03, 2024 1:00am September 23, 2024 4:56pm sennosides[facility] group home 8.6 mg oral tablet (20 sources) Start: 03-05-2023 End: 11-14-2023 take 1 tablet by mouth every twelve hours as needed senna (SENOKOT) 8.6 mg tab Take 1 tablet by mouth twice daily as needed for constipation. 12 tablet 03/05/2023 11/14/2023 Discontinued Comment on above: Take 1 tablet by srikanth th twice daily as needed for constipation. simvastatin 40 mg oral tablet (20 sources) HMG-CoA Reductase Inhibitor Start: 04-21-2015 End: 12-02-2024 take 1 tablet by mouth at bedtime Simvastatin 40 MG tablet Discontinued 40 mg PO AT BEDTIME April 21, 2015 12:00am September 01, 2024 5:49am cholesterol Comment on above: Take 1 tablet by srikanth th daily at bedtime. 125 ml sodium chloride 9 mg/ml prefilled syringe (20 sources) Start: 01-24-2021 End: 04-25-2022 sodium chloride 0.9 % (flush) 10 mL (BD POSIFLUSH) TUMERIC 1,000 mg capsule (8 sources) Start: 09-22-2023 End: 10-24-2023 take 1 capsule by mouth once daily TUMERIC 1,000 mg capsule Discontinued 1000 mg PO DAILY September 22, 2023 1:00am October 24, 2023 11:52am Problems Active Problems Problem Classification Problem Date Documented Da te Episodic/Chronic Abdominal pain (20 sources) Abdominal pain; Translations: [Unspecified abdominal pain] Onset: 08-18-2022 Resolved: 06-06-2023 08-16-2022 Episodic Biliary tract disease (20 sources) Acute cholecystitis; Translations: [Acute cholecystitis] Onset: 06-06-2023 Resolved: 06-06-2023 02-07-2021 Episodic Blindness and vision defects (20 sources) Blindness AND/OR vision impairment level; Translations: [Blindness, one eye, unspecified eye] Onset: 11-24-2009 11-24-2009 Chronic Cancer of bladder (20 sources) Malignant tumor of urinary bladder; Translations: [Malignant neoplasm of bladder, unspecified] Onset: 07-04-2024 12-02-2024 Chronic Cardiac dysrhythmias (20 sources) Paroxysmal atrial fibrillation; Translations: [Paroxysmal atrial fibrillation] Onset: 02-05-2021 05-06-2021 Chronic Chronic obstructive pulmonary disease and bronchiectasis (3 sources) Bronchitis; Translations: [Bronchitis, not specified as acute or chronic] 06-09-2023 Episodic Complications of surgical procedures or medical care (8 sources) Postoperative hemorrhage; Translations: [Hemorrhage complicating a procedure] 05-08-2024 Episodic Conduction disorders (20 sources) 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 fascicular block; Translations: [Bifascicular block] Onset: 06-06-2023 10-25-2022 Chronic Congestive heart failure; nonhypertensive (20 sources) Congestive heart failure; Translations: [Unspecified systolic (congestive) heart failure] Onset: 08-29-2024 07-29-2024 Chronic Coronary atherosclerosis and other heart disease (20 sources) Non-obstructive atherosclerosis of coronary artery; Translations: [Atherosclerotic heart disease of [place] coronary artery without angina pectoris] Onset: 06-06-2023 06-22-2021 Chronic Deficiency and other anemia (1 source) Iron deficiency anemia; Translations: [Iron deficiency anemia, unspecified] 07-29-2024 Episodic Deficiency and other anemia (3 sources) Anemia; Translations: [Anemia, unspecified] 04-08-2025 Episodic Deficiency and other anemia (1 source) Anemia, unspecified; Translations: [Anemia, unspecified] Onset: 04-08-2025 Episodic Diabetes mellitus with complications (20 sources) Type 2 diabetes mellitus; Translations: [Type 2 diabetes mellitus with other diabetic kidney complication] Onset: 05-11-2005 08-18-2021 Chronic Diabetes mellitus without complication (20 sources) Type 2 diabetes mellitus without complication; Translations: [Type 2 diabetes mellitus without complications] Onset: 06-11-2024 Chronic Diseases of white blood cells (20 sources) Monocytosis; 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)] Onset: 07-23-2024 Chronic Disorders of lipid metabolism (20 sources) Pure hypercholesterolemia; Translations: [Pure hypercholesterolemia, unspecified] Onset: 06-13-2005 Resolved: 06-06-2023 06-09-2009 Chronic E Codes: Fall (1 source) Fall; Translations: [Unspecified fall, initial encounter] 05-18-2023 Episodic Essential hypertension (20 sources) Essential hypertension; Translations: [Essential (primary) hypertension] Onset: 05-11-2005 09-29-2015 Chronic Comment on above: CONTROLLED WITH MEDS Fracture of lower limb (6 sources) Closed fracture of foot; Translations: [Unspecified fracture of unspecified foot, initial encounter for closed fracture] Onset: 01-22-2025 01-15-2025 Episodic Hyperplasia of prostate (20 sources) Benign prostatic hyperplasia; Translations: [Benign prostatic hyperplasia with lower urinary tract symptoms] Onset: 06-20-2024 Chronic Nausea and vomiting (20 sources) Nausea; Translations: [Nausea] Onset: 03-06-2023 Resolved: 06-06-2023 03-01-2023 Episodic Nonspecific chest pain (20 sources) Chest pain; Translations: [Chest pain, unspecified] Onset: 07-23-2024 Episodic Nutritional deficiencies (1 source) Cobalamin deficiency; Translations: [Deficiency of other specified B group vitamins] 07-29-2024 Episodic Other aftercare (20 sources) Long-term current use of anticoagulant; Translations: [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] Onset: 02-15-2021 02-15-2021 Episodic Other aftercare (1 source) Wound ; Translations: [Encounter for other specified surgical aftercare] 05-01-2023 Episodic Other and ill-defined heart disease (8 sources) Diastolic dysfunction; Translations: [Other ill-defined heart diseases] 09-23-2024 Chronic Other and ill-defined heart disease (1 source) Other ill-defined heart diseases; Translations: [Other ill-defined heart diseases] Onset: 10-30-2024 Chronic Other and unspecified benign neoplasm (20 sources) History of polyp of colon; Translations: [Personal history of colonic polyps] Onset: 06-06-2023 02-07-2021 Episodic Other bone disease and musculoskeletal deformities (1 source) Disorder of bone; Translations: [Disorder of bone, unspecified] 06-20-2024 Episodic Other circulatory disease (20 sources) H/O: atrial fibrillation; Translations: [Personal history of other diseases of the circulatory system] Onset: 06-06-2023 Resolved: 06-06-2023 11-21-2022 Episodic Other circulatory disease (2 sources) Personal history of other diseases of the circulatory system; Translations: [Personal history of other diseases of circulatory system] 11-21-2022 Episodic Other circulatory disease (8 sources) H/O: heart disorder; Translations: [Personal history of other diseases of the circulatory system] 07-22-2024 Episodic Other connective tissue disease (4 sources) Pain in left foot; Translations: [Pain in left foot] 01-12-2025 Episodic Other connective tissue disease (1 source) Pain in left foot; Translations: [Foot pain, left] Onset: 01-12-2025 Episodic Other diseases of bladder and urethra (8 sources) Disorder of bladder; Translations: [Bladder disorder, unspecified] 08-13-2024 Chronic Comment on above: BLADDER TUMOR excisi on Other diseases of bladder and urethra (1 source) Bladder disorder, unspecified; Translations: [Bladder disorder, unspecified] Onset: 07-23-2024 Chronic Other diseases of veins and lymphatics (2 sources) Lymphedema of left lower limb; Translations: [Lymphedema, not elsewhere classified] 03-21-2024 Chronic Other diseases of veins and lymphatics (1 source) Lymphedema, not elsewhere classified; Translations: [Lymphedema of left leg] Onset: 06-20-2024 Chronic Other diseases of veins and lymphatics (2 sources) Peripheral venous insufficiency; Translations: [Venous insufficiency (chronic) (peripheral)] 02-28-2024 Episodic Other endocrine disorders (20 sources) Hypoglycemia; Translations: [Hypoglycemia, unspecified] 02-25-2023 Chronic Other endocrine disorders (1 source) Hypoglycemia, unspecified; Translations: [Hypoglycemia, unspecified] Onset: 11-18-2024 Chronic Other gastrointestinal disorders (4 sources) Diarrhea; Translations: [Diarrhea, unspecified] Episodic Other gastrointestinal disorders (1 source) Acute constipation; Translations: [Constipation, unspecified] Episodic Other gastrointestinal disorders (8 sources) Acute diarrhea; Translations: [Diarrhea, unspecified] 06-08-2024 Episodic Other inflammatory condition of skin (20 sources) Psoriasis; Translations: [Other psoriasis] Onset: 05-11-2005 05-11-2005 Chronic Other inflammatory condition of skin (20 sources) Psoriatic arthritis; 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, unspecified] Onset: 12-02-2024 12-25-2023 Chronic Other inflammatory condition of skin (1 source) Arthropathic psoriasis, unspecified; Translations: [Psoriatic arthritis (HCC)] Onset: 12-02-2024 Chronic Other inflammatory condition of skin (1 source) Other psoriasis; Translations: [Other psoriasis] Onset: 05-11-2005 Chronic Other lower respiratory disease (8 sources) Pulmonary edema; Translations: [Chronic pulmonary edema] 08-02-2024 Chronic Other lower respiratory disease (1 source) Chronic pulmonary edema; Translations: [Chronic pulmonary edema] Onset: 07-25-2024 Chronic Other lower respiratory disease (20 sources) Dyspnea on exertion; Translations: [Dyspnea, unspecified] 11-21-2022 Episodic Comment on above: WITH ANY EXERTION Other lower respiratory disease (20 sources) Dyspnea; Translations: [Shortness of breath] Onset: 01-31-2021 Resolved: 05-06-2021 11-21-2022 Episodic Other lower respiratory disease (16 sources) Pleuritic pain; Translations: [Pleurodynia] 09-28-2021 Episodic Other lower respiratory disease (6 sources) Shortness of breath; Translations: [Shortness of breath] Onset: 03-14-2025 Episodic Other lower respiratory disease (20 sources) Restrictive lung disease; Translations: [Other disorders of lung] Onset: 06-06-2023 10-25-2022 Episodic Comment on above: PRN INHALER Other lower respiratory disease (3 sources) Other disorders of lung; Translations: [Other diseases of lung, not elsewhere classified] Onset: 06-06-2023 Episodic Other lower respiratory disease (1 source) Rib pain; Translations: [Pleurodynia] 05-25-2021 Episodic Other lower respiratory disease (1 source) Snoring; Translations: [Snoring] 06-23-2024 Episodic Other lower respiratory disease (1 source) Apnea; Translations: [Apnea, not elsewhere classified] 06-23-2024 Episodic Other lower respiratory disease (16 sources) Hypoxia; Translations: [Hypoxemia] 07-22-2024 Episodic Other lower respiratory disease (2 sources) Hypoxemia; Translations: [Hypoxemia] Onset: 03-14-2025 Episodic Other nervous system disorders (1 source) [...] to excess calories] Onset: 05-11-2005 Resolved: 06-06-2023 10-25-2022 Chronic Other nutritional; endocrine; and metabolic disorders (4 sources) Morbid (severe) obesity due to excess calories; Translations: [Morbid obesity] Onset: 07-23-2024 Chronic Other nutritional; endocrine; and metabolic disorders (8 sources) Body mass index 40+ - severely obese; Translations: [Morbid (severe) obesity due to excess calories] 07-10-2024 Chronic Other nutritional; endocrine; and metabolic disorders (16 sources) Body mass index 30+ - obesity; Translations: [Obesity, unspecified] 07-31-2024 Chronic Other nutritional; endocrine; and metabolic disorders (1 source) Body mass index (BMI) 40.0-44.9, adult; Translations: [Body mass index [BMI] 40.0-44.9, adult] Onset: 07-23-2024 Chronic Other nutritional; endocrine; and metabolic disorders [...] Other upper respiratory infections (1 source) Chronic sinusitis; Translations: [Chronic sinusitis, unspecified] 09-06-2023 Chronic Other upper respiratory infections (4 sources) Acute upper respiratory infection; Translations: [Acute upper respiratory infection, unspecified] 05-18-2023 Episodic Pneumonia (except that caused by tuberculosis or sexually transmitted disease) (20 sources) Left lower zone pneumonia; Translations: [Pneumonia, unspecified organism] Onset: 06-06-2023 Resolved: 06-06-2023 10-25-2022 Episodic Poisoning by other medications and drugs (16 sources) Poisoning by unspecified drugs, medicaments and biological substances, accidental (unintentional), initial encounter; Translations: [Accidental drug ingestion] Episodic Rehabilitation care; fitting of prostheses; and adjustment of devices (1 source) Encounter for fitting and adjustment of other specified devices; Translations: [Encounter for fitting and adjustment of other specified devices] Onset: 11-20-2024 Chronic Residual codes; unclassified (20 sources) Sleep apnea; Translations: [Sleep apnea, unspecified] Onset: 03-31-2009 01-10-2018 Chronic Residual codes; unclassified (20 sources) Obstructive sleep apnea syndrome; Translations: [Obstructive sleep apnea (adult) (pediatric)] Onset: 03-31-2009 Resolved: 12-02-2024 02-28-2024 Chronic Comment on above: AHI is 81.9 from Aug Residual codes; unclassified (1 source) Hypersomnia; Translations: [Hypersomnia, unspecified] 02-28-2024 Chronic Residual codes; unclassified (8 sources) Daytime hypersomnia; Translations: [Hypersomnia, unspecified] 07-31-2024 Chronic Residual codes; unclassified (1 source) Sleep apnea, unspecified; Translations: [Sleep apnea, unspecified type] Onset: 01-10-2018 Chronic Residual codes; unclassified (2 sources) Obstructive sleep apnea (adult) (pediatric); Translations: [CJ (obstructive sleep apnea)] Onset: 11-07-2024 Chronic Residual codes; unclassified (1 source) Hypersomnia, unspecified; Translations: [Hypersomnia, unspecified] Onset: 07-31-2024 Chronic Residual codes; unclassified (3 sources) Bilateral lower limb edema; Translations: [Localized edema] 02-04-2024 Episodic Residual codes; unclassified (1 source) Cushingoid facies; Translations: [Other general symptoms and signs] 02-28-2024 Episodic Residual codes; unclassified (1 source) Frequent night waking; Translations: [Insomnia, unspecified] 06-23-2024 Episodic Residual codes; unclassified (8 sources) Creatinine level - finding 03-09-2023 Episodic Respiratory failure; insufficiency; arrest (adult) (1 source) Chronic hypoxemic respiratory failure; Translations: [Chronic respiratory failure with hypoxia] 08-05-2024 Chronic Respiratory failure; insufficiency; arrest (adult) (20 sources) Acute respiratory failure; Translations: [Acute respiratory failure with hypoxia] Onset: 06-06-2023 Resolved: 06-06-2023 10-25-2022 Episodic Schizophrenia and other psychotic disorders (20 sources) Chronic schizophrenia; Translations: [Schizophrenia, unspecified] Onset: 05-11-2005 Resolved: 04-23-2017 04-23-2017 Chronic Screening and history of mental health and substance abuse codes (2 sources) Patient encounter status; Translations: [Encounter for screening examination for other mental health and behavioral disorders] 12-02-2024 Episodic Spondylosis; intervertebral disc disorders; other back problems (20 sources) Intervertebral disc disorder of lumbar region with myelopathy; Translations: [Intervertebral disc disorders with myelopathy, lumbar region] Onset: 09-22-2005 09-22-2005 Chronic Sprains and strains (2 sources) Strain of calf muscle; Translations: [Strain of other muscle(s) and tendon(s) at lower leg level, right leg, initial encounter] Episodic Superficial injury; contusion (4 sources) Abrasion of left hand, initial encounter; Translations: [Abrasion or friction burn of hand(s) except finger(s) alone, without mention of infection] Onset: 01-12-2025 04-09-2024 Episodic Syncope (1 source) Near syncope; Translations: [Syncope and collapse] 05-18-2023 Episodic Unclassified (1 source) OPENED IN ERROR Unclassified (1 source) Obesity, Class II, BMI 35-39.9; Translations: [Obesity, Class II, BMI 35-39.9] Onset: 01-31-2021 Varicose veins of lower extremity (2 sources) Varicose vein of leg with phlebitis; Translations: [Varicose veins of right lower extremity with inflammation] 02-28-2024 Episodic Viral infection (20 sources) Disease caused by 2019-nCoV; Translations: [COVID-19] 11-21-2022 Episodic Past or Other Problems Problem Classification Problem Date Documented Da te Episodic/Chronic Cancer of bladder (20 sources) H/O: malignant neoplasm; Translations: [Personal history of malignant neoplasm of bladder] Onset: 06-20-2024 06-20-2024 Episodic Conditions associated with dizziness or vertigo (4 sources) Dizziness and giddiness; Translations: [Dizziness] Onset: 04-12-2024 09-23-2024 Episodic E Codes: Adverse effects of medical drugs (9 sources) Adverse reaction to drug; Translations: [Adverse effect of unspecified drugs, medicaments and biological substances, initial encounter] Onset: 07-23-2024 07-10-2024 Episodic Fluid and electrolyte disorders (20 sources) Mild dehydration; Translations: [Dehydration] Onset: 04-04-2023 Resolved: 06-06-2023 03-01-2023 Episodic Genitourinary symptoms and ill-defined conditions (15 sources) Retention of urine; Translations: [Retention of urine, unspecified] Onset: 08-18-2021 Episodic Heart valve disorders (1 source) Cardiac murmur, unspecified; Translations: [Cardiac murmur, unspecified] Onset: 07-04-2024 Episodic Immunizations and screening for infectious disease (6 sources) Viral screening status; Translations: [Encounter for screening for other viral diseases] Onset: 06-20-2024 Episodic Malaise and fatigue (12 sources) Asthenia; Translations: [Weakness] Onset: 06-20-2024 05-31-2024 Episodic Other aftercare (1 source) 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; Translations: [Chronic anticoagulation] Onset: 02-15-2021 Episodic Other aftercare (1 source) long-term (current) use of insulin; Translations: [Type 2 diabetes mellitus without complication, with long-term current use of insulin (HCC)] Onset: 06-11-2024 Episodic Other and unspecified benign neoplasm (20 sources) Tubular adenoma of colon; Translations: [Benign neoplasm of colon, unspecified] Onset: 06-02-2015 06-02-2015 Episodic Other bone disease and musculoskeletal deformities (1 source) Disorder of bone, unspecified; Translations: [Disorder of bone] Onset: 06-20-2024 Episodic Other lower respiratory disease (3 sources) Dyspnea, unspecified; Translations: [Other respiratory abnormalities] Onset: 07-25-2024 Episodic Other lower respiratory disease (5 sources) Other forms of dyspnea; Translations: [Other respiratory abnormalities] Onset: 07-04-2024 Episodic Other lower respiratory disease (1 source) Snoring; Translations: [Snoring] Onset: 06-23-2024 Episodic Other lower respiratory disease (1 source) Apnea, not elsewhere classified; Translations: [Witnessed episode of apnea] Onset: 06-23-2024 Episodic Other nervous system disorders (1 source) Other abnormal involuntary movements; Translations: [Nocturnal leg movements] Onset: 06-23-2024 Episodic Other nutritional; endocrine; and metabolic disorders (20 sources) Cholesterol level - finding; Translations: [Lipoprotein deficiency] Onset: 06-09-2011 Resolved: 06-06-2023 06-09-2011 Chronic Other screening for suspected conditions (not mental disorders or infectious disease) (20 sources) Liver function tests abnormal; Translations: [Abnormal results of liver function studies] Onset: 03-31-2009 Resolved: 03-03-2022 04-02-2009 Episodic Residual codes; unclassified (1 source) Insomnia, unspecified; Translations: [Frequent nocturnal awakening] Onset: 06-23-2024 Episodic Residual codes; unclassified (1 source) Disorientation, unspecified; Translations: [Disorientation, unspecified] Onset: 08-01-2024 Episodic Spondylosis; intervertebral disc disorders; other back problems (20 sources) Sciatica; Translations: [Sciatica, unspecified side] Onset: 06-15-2005 Resolved: 05-06-2021 05-06-2021 Episodic Unclassified (2 sources) Contusion of left foot 01-12-2025 Urinary tract infections (20 sources) Urinary tract infectious disease; Translations: [Urinary tract infection, site not specified] Onset: 07-23-2024 09-09-2024 Episodic Results Test Name Value Interpretation Reference Range Facility GAGANDEEP w/ Reflex Mult Confirmon 04-10-2025 ANTI-DNA (DS)AB TNP Normal [facility] Comment on above: Performed By: #### L 505.7010, L503.3550, L3100.5450, L3300.1200, L4600.0100 ####[facility] [address] [place], [place], [phone] ANTI-SS-A TNP Normal [facility] Comment on above: Performed By: #### L 505.7010, L503.6550, L3100.5450, L3300.1200, L4600.0100 ####[facility] [address] [place], [address] ANTI-SS-B TNP Normal [facility] Comment on above: Performed By: #### L 505.7010, L503.6550, L3100.5450, L3300.1200, L4600.0100 ####[facility] [address] [place], [address] ANCAon 04-09-2025 Atypical pANCA <1:20 Normal Neg:<1:20 [facility] Comment on above: Result Comment: The atypical pANCA pattern has been observed in asignificant percentage of patients with ulcerative colitis,primary sclerosing cholangitis and autoimmune hepatitis. Performed By: #### L 505.7010, L503.6550, L3100.5450, L3300.1200, L4600.0100 ####[facility] [address] [place], [address] Cytoplasmic Ab <1:20 Normal Neg:<1:20 [facility] Comment on above: Performed By: #### L 505.7010, L503.6550, L3100.5450, L3300.1200, L4600.0100 ####[facility] [address] [place], [address] Perinuclear Ab. <1:20 Normal Neg:<1:20 [facility] Comment on above: Result Comment: The presence of positive fluorescence exhibiting P-ANCA orC-ANCA patterns alone is not specific for the diagnosis ofWegener's Granulomatosis (WG) or microscopic polyangiitis.Decisions about treatment should not be based solely onANCA IFA results. The International ANCA Group Consensusrecommends follow up testing of positive sera with both AZ-3 and MPO-ANCA enzyme immunoassays. As many as 5% serumsamples are positive only by EIA. Ref. AM J Clin [id number];111:507-513. Performed By: #### L 505.7010, L503.6550, L3100.5450, L3300.1200, L4600.0100 ####[facility] [address] [place], [place], [id number] CCP IgG Antibodieson 025 CCP IgG Ab. 8 units Normal 0-19 [facility] Comment on above: Result Comment: Nega tive <20 Weak positive 20 - 39 Moderate positive 40 - 59 Strong positive >59Performed at: [facility] [employer] [id number] Director: Naresh Pruitt PhD, Phone: [phone] Performed By: #### L 505.7010, L503.6550, L3100.5450, L3300.1200, L4600.0100 ####[facility] [address] [place], [place], [id number] Ferritinon 04-08-2025 Ferritin [Mass/Vol] 44 ng/mL Normal 37-417 [facility] Comment on above: Performed By: #### L 505.7010, L503.6550, L3100.5450, L3300.1200, L4600.0100 ####[facility] [address] [place], [place], [id number] Pulmonary Visit Reporton Pulmonary Visit Report Normal [facility] Rheumatoid Factoron 04-08-20 25 RHEUMATOID FAC < 10.0 Normal <15 [facility] Comment on above: Performed By: #### L 505.7010, L503.6550, L3100.5450, L3300.1200, L4600.0100 ####[facility] [address] [place], [place], [id number] Serum DNA double strand anti body assay (units/volume)Ordered By: ARSALAN Macario on 04-08-2025 DNA double strand Ab Qn (S) TNP [facility] Comment on above: Test not performed Serum Scl-70 antibody assay (units/volume)Ordered By: ARSALAN Macario on 04-08-2025 SCL-70 extractable nuclear Ab Qn (S) [facility] Comment on above: Test not performed Serum classic neutrophil cyt oplasmic antibody assay (units/volume)Ordered By: ARSALAN Macario on 04-08-2025 Neutrophil cytoplasmic Ab.classic Qn (S) <1:20 titer Neg:<1:20 [facility] Serum or plasma cyclic citru llinated peptide IgG antibody assay (units/volume)Ordered By: ARSALAN Macario on 04-08-2025 Cyclic citrullinated peptide IgG Qn 8 units 0-19 [facility] Comment on above: Negative <20 Weak po sitive 20 - 39 Moderate positive 40 - 59 Strong positive >59Performed at: [employer] [place] [id number] Director: Naresh Pruitt PhD, Phone: [phone] Serum or plasma ferritin harsha surement (mass/volume)Ordered By: ARSALAN Macario on 04-08-2025 Ferritin [Mass/Vol] 44 ng/mL 37-417 [facility] Serum perinuclear neutrophil cytoplasmic antibody titer by immunofluorescenceOrdered By: ARSALAN Macario on 04-08-2025 Neutrophil cytoplasmic Ab.perinuclear IF (S) [Titer] <1:20 titer Neg:<1:20 [facility] Comment on above: The presence of posi tive fluorescence exhibiting P-ANCA orC-ANCA patterns alone is not specific for the diagnosis ofWegener's Granulomatosis (WG) or microscopic polyangiitis.Decisions about treatment should not be based solely onANCA IFA results. The [employer] ANCA Group Consensusrecommends follow up testing of positive sera with both AZ-3 and MPO-ANCA enzyme immunoassays. As many as 5% serumsamples are positive only by EIA. Ref. AM J Clin Nfyarx3522;111:507-513. Serum rheumatoid factor dete ctionOrdered By: ARSALAN Macario on 04-08-2025 Rheumatoid factor Ql (S) < 10.0 IU/mL <15 [facility] CNPNon 04-02-2025 CNPN Telephone (GDWYDU) FAISAL ALARCON ([id number]) 1945 M Date Time Provider Department 04/02/25 MATHIEU VIRGEN [facility] During your visit today, we recorded the following information about you: Janet King MA 04/02/2025 4:39 PM Signed Type of form: Prescription Assistance Form received via walk in When form is completed, Fax form to [facility] Form has been forwarded to Physician Desk: Dr. Virgen Prescription pended to go to [facility], as listed on form. JOSE ARMANDO Tee William J, MD 04/03/2025 10:45 AM Signed Jaylene Otoole LPN 04/03/2025 11:11 AM Signed Faxed application. 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 - ELIQUIS 5 mg tab(s) Take 1 tablet by mouth two times a day. - famotidine (PEPCID) 20 mg tablet Take 1 tablet by mouth two times a day. - carvedilol (COREG) 25 mg tablet Take 1 tablet by mouth two times a day. - insulin aspart, niacinamide, (FIASP FLEXTOUCH U-100 INSULIN) 100 unit/mL (3 mL) pen Inject 26 Units subcutaneously three times a day before meals. - finasteride (PROSCAR) 5 mg tablet Take 1 tablet by mouth once daily. - dilTIAZem CD (CARDIZEM CD, CARTIA XT) 120 mg 24 hr capsule Take 1 capsule by mouth once daily. - flecainide (TAMBOCOR) 100 mg tablet Take 100 mg by mouth two times a day. - spironolactone (ALDACTONE) 25 mg tablet Take 25 mg by mouth once daily. - isosorbide mononitrate ER (IMDUR) 30 mg 24 hr tablet Take 1 tablet by mouth every afternoon. Ordered by cardiology - Blood-Glucose Sensor ([employer] G7 SENSOR) sayra Apply new sensor every ten (10) days. - metFORMIN ER (GLUCOPHAGE XR) 500 mg 24 hr tablet Take 2 tablets by mouth two times a day before meals. - furosemide (LASIX) 40 mg tablet Take 1 tablet by mouth once daily. - atorvastatin (LIPITOR) 20 mg tablet Take 1 tablet by mouth once daily. Replaces simvastatin - OXYGEN, HOME THERAPY, 2 L/min by Nasal Cannula route continuous. - OTC NUTRITIONAL SUPPLEMENT NUVOFLEX - TURMERIC ORAL Take by mouth. - tamsulosin (FLOMAX) 0.4 mg Take 1 capsule by mouth every 12 hours. - solifenacin 10 mg tablet Take 1 tablet by mouth every afternoon. - empagliflozin (JARDIANCE) 25 mg tablet Take 1 tablet by mouth once daily. Take 1 tablet once daily in the morning - cyanocobalamin (VITAMIN B-12) 1,000 mcg tab Take 1 tablet by mouth once daily. - colestipol (COLESTID) 1 gram tablet Take 1 tablet by mouth once daily. - albuterol HFA (VENTOLIN HFA) 90 mcg/actuation inhaler Inhale 2 Puffs as instructed every 4 hours as needed. - aspirin 81 mg chewable tablet Take [...] of 08/20/2013: Problem List As Of Date 04/02/2025 Noted Resolved OTHER PSORIASIS [L40.8] 05/11/2005 Essential hypertension [I10] 05/11/2005 Morbid obesity (HCC) [E66.01] 05/11/2005 06/06/2023 Paranoid schizophrenia, subchronic condition wi*05/11/2005 04/23/2017 Type 2 diabetes mellitus with microalbuminuria *05/11/2005 Pure hypercholesterolemia [E78.00] 06/13/2005 06/06/2023 Sciatica [M54.30] 06/15/2005 05/06/2021 LUMB DISC DIS W MYELOPAT [M51.06] 09/22/2005 CJ (obstructive sleep apnea) [G47.33] 03/31/2009 12/02/2024 Nonspecific abnormal results of liver function *03/31/2009 [...] [Z79.01] 02/15/2021 Acute cholecystitis [K81.0] 06/06/2023 06/06/2023 Diagno (more content not included)... Normal [facility] Chest without Contraston Chest without Contrast [facility] 6 Minute Walk Teston 025 6 Minute Walk Test Normal [facility] CNPNon 02-11-2025 YAKOV Telephone (COLIN) ESHAAFISAL PYLE ([id number]) 1945 M Date Time Provider Department 02/11/25 MATHIEU VIRGEN During your visit today, we recorded the following information about you: Jaylene Henley LPN 02/11/2025 9:10 AM Signed [facility] requesting DM note faxed to them documenting diabetes visit. Sent as requested. Allergies As of Date: 02/11/2025 Noted Allergy Reaction AMOXICILLIN 05/11/2005 Comments: generalized erythema Date Reviewed: 01/22/2025 Reviewed by: Pricilla Kuhn LPN - Fully Assessed Reason for Visit: FYI-No Action Needed [265] Cmt: Diabetes note sent to DME Prescriptions as of 02/11/2025 - famotidine (PEPCID) 20 mg tablet Take 1 tablet by mouth two times a day. - carvedilol (COREG) 25 mg tablet Take 1 tablet by mouth two times a day. - insulin glargine (BASAGLAR KWIKPEN U-100 INSULIN) 100 unit/mL (3 mL) Inject 47 Units subcutaneously daily at bedtime. - insulin aspart, niacinamide, (FIASP FLEXTOUCH U-100 INSULIN) 100 unit/mL (3 mL) pen Inject 26 Units subcutaneously three times a day before meals. - finasteride (PROSCAR) 5 mg tablet Take 1 tablet by mouth once daily. - dilTIAZem CD (CARDIZEM CD, CARTIA XT) 120 mg 24 hr capsule Take 1 capsule by mouth once daily. - flecainide (TAMBOCOR) 100 mg tablet Take 100 mg by mouth two times a day. - spironolactone (ALDACTONE) 25 mg tablet Take 25 mg by mouth once daily. - isosorbide mononitrate ER (IMDUR) 30 mg 24 hr tablet Take 1 tablet by mouth every afternoon. Ordered by cardiology - Blood-Glucose Sensor ([employer] G7 SENSOR) sayra Apply new sensor every ten (10) days. - metFORMIN ER (GLUCOPHAGE XR) 500 mg 24 hr tablet Take 2 tablets by mouth two times a day before meals. - furosemide (LASIX) 40 mg tablet Take 1 tablet by mouth once daily. - atorvastatin (LIPITOR) 20 mg tablet Take 1 tablet by mouth once daily. Replaces simvastatin - OXYGEN, HOME THERAPY, 2 L/min by Nasal Cannula route continuous. - OTC NUTRITIONAL SUPPLEMENT NUVOFLEX - TURMERIC ORAL Take by mouth. - tamsulosin (FLOMAX) 0.4 mg Take 1 capsule by mouth every 12 hours. - solifenacin 10 mg tablet Take 1 tablet by mouth every afternoon. - empagliflozin (JARDIANCE) 25 mg tablet Take 1 tablet by mouth once daily. Take 1 tablet once daily in the morning - cyanocobalamin (VITAMIN B-12) 1,000 mcg tab Take 1 tablet by mouth once daily. - ELIQUIS 5 mg tab(s) Take 1 tablet by mouth two times a day. - colestipol (COLESTID) 1 gram tablet Take 1 tablet by mouth once daily. - albuterol HFA (VENTOLIN HFA) 90 mcg/actuation inhaler Inhale 2 Puffs as instructed every 4 hours as needed. - aspirin 81 mg chewable tablet Take [...] of 08/20/2013: Problem List As Of Date 02/11/2025 Noted Resolved OTHER PSORIASIS [L40.8] 05/11/2005 Essential hypertension [I10] 05/11/2005 Morbid obesity (HCC) [E66.01] 05/11/2005 06/06/2023 Paranoid schizophrenia, subchronic condition wi*05/11/2005 04/23/2017 Type 2 diabetes mellitus with microalbuminuria *05/11/2005 Pure hypercholesterolemia [E78.00] 06/13/2005 06/06/2023 Sciatica [M54.30] 06/15/2005 05/06/2021 LUMB DISC DIS W MYELOPAT [M51.06] 09/22/2005 CJ (obstructive sleep apnea) [G47.33] 03/31/2009 12/02/2024 Nonspecific abnormal results of liver function *03/31/2009 [...] 06/06/2023 Diagnosed: 06/06/2023 Nausea [R11.0] 03/06/2023 06/06/2023 Di (more content not included)... Normal [facility] CBC W/Diff, Automatedon - PATH REV Reviewed Normal [facility] Comment on above: Result Comment: SEE REPORT IN PATIENT'S EMR AMENDED REPORT 02/05/25 1603 PATH REV previously reported as: January Performed By: #### L 100.0100 ####[facility] [address] [place], [address] CNOVon 01-26-2025 CNOV Office Visit (FAMWS ) FAISAL ALARCON ([id number]) 1945 M Date Time Provider Department 01/26/25 2:40 PM [facility] During your visit today, we recorded the following information about you: Pulse Blood pressure Weight 82/minute 108/64 122 kg Mathieu Virgen MD 01/26/2025 2:53 PM Signed Patient presents with: Diabetes: A1C right now is 6.8 according to his marielle HPI: Patient presents today for office visit for follow up. Diabetes: Patient denies any low readings. Brings in his marielle which is readding very well. States that he did have a fall today getting out of truck. He just wasn't being careful like he should. Is wearing slide on sandals today. Did see podiatry for his left foot fracture. HTN: breathing is stable. . Denies any swelling. Bp is stable. No chest pain No dizziness. Bp is doing much getter. Still following with cardiology. He did fall getting his scooter off of his vehicle. No head injury. No loc. Has an abrasion on his elbow. No major injury. Is cleaned and covered. Last A1c recently was 7.0 MEDICATIONS: Current Outpatient Medications Medication Sig carvedilol (COREG) 25 mg tablet Take 1 tablet by mouth two times a day. insulin glargine (BASAGLAR KWIKPEN U-100 INSULIN) 100 unit/mL (3 mL) Inject 47 Units subcutaneously daily at bedtime. losartan (COZAAR) 25 mg tablet Take 0.5 tablets by mouth once daily. insulin aspart, niacinamide, (FIASP FLEXTOUCH U-100 INSULIN) 100 unit/mL (3 mL) pen Inject 26 Units subcutaneously three times a day before meals. finasteride (PROSCAR) 5 mg tablet Take 1 tablet by mouth once daily. dilTIAZem CD (CARDIZEM CD, CARTIA XT) 120 mg 24 hr capsule Take 1 capsule by mouth once daily. flecainide (TAMBOCOR) 100 mg tablet Take 100 mg by mouth two times a day. spironolactone (ALDACTONE) 25 mg tablet Take 25 mg by mouth once daily. isosorbide mononitrate ER (IMDUR) 30 mg 24 hr tablet Take 1 tablet by mouth every afternoon. Ordered by cardiology Blood-Glucose Sensor ([employer] G7 SENSOR) sayra Apply new sensor every ten (10) days. metFORMIN ER (GLUCOPHAGE XR) 500 mg 24 hr tablet Take 2 tablets by mouth two times a day before meals. furosemide (LASIX) 40 mg tablet Take 1 tablet by mouth once daily. atorvastatin (LIPITOR) 20 mg tablet Take 1 tablet by mouth once daily. Replaces simvastatin OXYGEN, HOME THERAPY, 2 L/min by Nasal Cannula route continuous. famotidine (PEPCID) 20 mg tablet Take 1 tablet by mouth two times a day. OTC NUTRITIONAL SUPPLEMENT NUVOFLEX TURMERIC ORAL Take by mouth. tamsulosin (FLOMAX) 0.4 mg Take 1 capsule by mouth every 12 hours. solifenacin 10 mg tablet Take 1 tablet by mouth every afternoon. empagliflozin (JARDIANCE) 25 mg tablet Take 1 tablet by mouth once daily. Take 1 tablet once daily in the morning cyanocobalamin (VITAMIN B-12) 1,000 mcg tab Take 1 tablet by mouth once daily. ELIQUIS 5 mg tab(s) Take 1 tablet by mouth two times a day. colestipol (COLESTID) 1 gram tablet Take 1 tablet by mouth once daily. albuterol HFA (VENTOLIN HFA) 90 mcg/actuation inhaler Inhale 2 Puffs as instructed every 4 hours as needed. aspirin 81 mg chewable tablet Take 81 [...] Father Cancer Mother Colon Cancer Sister Cancer (more content not included)... Normal [facility] Cardiology Visit Reporton Cardiology Visit Report Normal [facility] CNOVon 01-22-2025 CNOV Office Visit (PODIWS ) ESHAFAISAL Russo ([id number]) 1945 M Date Time Provider Department 01/22/25 3:15 PM JAMAL MACE PODIWS During your visit today, we recorded the following information about you: Pricilla Kuhn LPN 01/24/2025 7:08 AM Signed AMB ROOMING INTAKE FLOWSHEET DATA Pain Pain Level: 2 Pain Location: Foot-Left Description: Tenderness Duration Amount of Time: 2 Duration Units: Weeks Frequency: Intermittent Intervention/Comfort measure: Relaxation, Reposition Patient presents with: Left Foot - New, Pain, Swelling, Fracture DENISE Milan Matthew 01/22/2025 3:45 PM Signed Get an x-ray of your left foot today to check the healing of your fractured metatarsal necks. Schedule a repeat x-ray in about 3 weeks for follow?up monitoring of your fracture. Wear supportive, well-fitting footwear--avoid flip-flops or going barefoot--to protect your injured foot, especially as you have diabetes. Continue your usual diabetic foot care, checking your feet regularly and avoiding situations that might lead to injury, given the decreased vibratory sensation noted. Jamal Mace 01/24/2025 7:08 AM Signed Consultation requested by Dr. Virgen for an opinion regarding fracture of metatarsal. My final recommendations will be communicated back to the requesting physician by way of shared Medical record or letter to requesting physician via US mail. Subjective Faisal is an 79-year-old male with a history of type 2 diabetes mellitus, presenting for evaluation of left foot fractures. Left Foot Fractures: - Sustained fractures to the left foot after a fall approximately 2-3 weeks ago. - Denies knowing the exact mechanism of the fall. - Initially did not seek immediate medical attention; mentioned the incident to his family doctor, who ordered an X-ray. - X-ray taken on 01/12/2025 revealed minimally displaced fractures of the second, third, and fourth metatarsal necks of the left foot. - Reports feeling something's going on in the foot but denies significant pain. - Unable to obtain a wooden sole shoe due to size availability issues. - Tried using a boot but found it awkward. Type 2 Diabetes Mellitus: - Last HbA1c in May 2024 was 7.4%. - Recent blood glucose readings around 153 mg/dL. - Due for another HbA1c test next week. 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 Stable for years. Sleep apnea 03/31/2009 Pt declined my recs for testing as of 03-25 Current Outpatient Medications Medication Sig Dispense Refill carvedilol (COREG) 25 mg tablet Take 1 tablet by mouth two times a day. 180 tablet 1 insulin glargine (BASAGLAR KWIKPEN U-100 INSULIN) 100 unit/mL (3 mL) Inject 47 Units subcutaneously daily at bedtime. 15 mL 3 losartan (COZAAR) 25 mg tablet Take 0.5 tablets by mouth once daily. 45 tablet 3 insulin aspart, niacinamide, (FIASP FLEXTOUCH U-100 INSULIN) 100 unit/mL (3 mL) pen Inject 26 Units subcutaneously three times a day before meals. 8 Each 11 finasteride (PROSCAR) 5 mg tablet Take 1 tablet by mouth once daily. 90 tablet 3 dilTIAZem CD (CARDIZEM CD, CARTIA XT) 120 mg 24 hr capsule Take 1 capsule by mouth once daily. 90 capsule 3 flecainide (TAMBOCOR) 100 mg tablet Take 100 mg by mouth two times a day. spironolactone (ALDACTONE) 25 mg tablet Take 25 mg by mouth once daily. isosorbide mononitrate ER (IMDUR) 30 mg 24 hr tablet Take 1 tablet by mouth every afternoon. Ordered by cardiology Blood-Glucose Sensor (DEXCOM G7 SENSOR) sayra Apply new sensor every ten (10) days. 1 Each 1 metFORMIN ER (GLUCOPHAGE XR) 500 mg 24 hr tablet Take 2 tablets by mouth two times a day before meals. 360 tablet 3 furosemide (LASIX) 40 mg tablet Take 1 tablet by mouth once daily. 90 tablet 1 atorvastatin (LIPITOR) 20 mg tablet Take 1 tablet by mouth once daily. Replaces simvastatin 90 tablet 3 OXYGEN, HOME THERAPY, 2 L/min by Nasal Cannula route continuous. 1 Each 11 famotidine (PEPCID) 20 mg tablet Take 1 tablet by mouth two times a day. 180 tablet 1 OTC NUTRITIONAL SUPPLEMENT NUVOFLEX TURMERIC ORAL Take by mouth. tamsulosin (FLOMAX) 0.4 mg Take 1 capsule by mouth every 12 hours. solifenacin 10 mg tablet Take 1 tablet by mouth every afternoon. empagliflozin (JARDIANCE) 25 mg tablet Take 1 tablet by mouth once daily. Take 1 tablet once daily in the morning 30 tablet 0 cyanocobalamin (VITAMIN B-12) 1,000 mcg tab Take 1 tablet by mouth once (more content not included)... Normal [facility] 01-22-2025 [facility] Telephone ([facility]) FAISAL ALARCON ([id number]) 1945 M Date Time Provider Department 01/22/25 MATHIEU VIRGEN [facility] During your visit today, we recorded the following information about you: Liyah Monroy RN 01/22/2025 8:23 AM Signed Jacki with [facility] called in and need the diagnosis the provider put on the CBC for the pathologist interpretation. I let her know it was : Leukocytosis, unspecified type [D72.829] Liyah Monroy RN Allergies As of Date: 01/22/2025 Noted Allergy Reaction AMOXICILLIN 05/11/2005 Comments: generalized erythema Date Reviewed: 01/12/2025 Reviewed by: Jaylene Henley LPN - Fully Assessed Prescriptions as of 01/22/2025 - carvedilol (COREG) 25 mg tablet Take 1 tablet by mouth two times a day. - insulin glargine (BASAGLAR KWIKPEN U-100 INSULIN) 100 unit/mL (3 mL) Inject 47 Units subcutaneously daily at bedtime. - losartan (COZAAR) 25 mg tablet Take 0.5 tablets by mouth once daily. - insulin aspart, niacinamide, (FIASP FLEXTOUCH U-100 INSULIN) 100 unit/mL (3 mL) pen Inject 26 Units subcutaneously three times a day before meals. - finasteride (PROSCAR) 5 mg tablet Take 1 tablet by mouth once daily. - dilTIAZem CD (CARDIZEM CD, CARTIA XT) 120 mg 24 hr capsule Take 1 capsule by mouth once daily. - flecainide (TAMBOCOR) 100 mg tablet Take 100 mg by mouth two times a day. - spironolactone (ALDACTONE) 25 mg tablet Take 25 mg by mouth once daily. - isosorbide mononitrate ER (IMDUR) 30 mg 24 hr tablet Take 1 tablet by mouth every afternoon. Ordered by cardiology - Blood-Glucose Sensor ([employer] G7 SENSOR) sayra Apply new sensor every ten (10) days. - metFORMIN ER (GLUCOPHAGE XR) 500 mg 24 hr tablet Take 2 tablets by mouth two times a day before meals. - furosemide (LASIX) 40 mg tablet Take 1 tablet by mouth once daily. - atorvastatin (LIPITOR) 20 mg tablet Take 1 tablet by mouth once daily. Replaces simvastatin - OXYGEN, HOME THERAPY, 2 L/min by Nasal Cannula route continuous. - famotidine (PEPCID) 20 mg tablet Take 1 tablet by mouth two times a day. - OTC NUTRITIONAL SUPPLEMENT NUVOFLEX - TURMERIC ORAL Take by mouth. - tamsulosin (FLOMAX) 0.4 mg Take 1 capsule by mouth every 12 hours. - solifenacin 10 mg tablet Take 1 tablet by mouth every afternoon. - empagliflozin (JARDIANCE) 25 mg tablet Take 1 tablet by mouth once daily. Take 1 tablet once daily in the morning - cyanocobalamin (VITAMIN B-12) 1,000 mcg tab Take 1 tablet by mouth once daily. - ELIQUIS 5 mg tab(s) Take 1 tablet by mouth two times a day. - colestipol (COLESTID) 1 gram tablet Take 1 tablet by mouth once daily. - albuterol HFA (VENTOLIN HFA) 90 mcg/actuation inhaler Inhale 2 Puffs as instructed every 4 hours as needed. - aspirin 81 mg chewable tablet Take [...] of 08/20/2013: Problem List As Of Date 01/22/2025 Noted Resolved OTHER PSORIASIS [L40.8] 05/11/2005 Essential hypertension [I10] 05/11/2005 Morbid obesity (HCC) [E66.01] 05/11/2005 06/06/2023 Paranoid schizophrenia, subchronic condition wi*05/11/2005 04/23/2017 Type 2 diabetes mellitus with microalbuminuria *05/11/2005 Pure hypercholesterolemia [E78.00] 06/13/2005 06/06/2023 Sciatica [M54.30] 06/15/2005 05/06/2021 LUMB DISC DIS W MYELOPAT [M51.06] 09/22/2005 CJ (obstructive sleep apnea) [G47.33] 03/31/2009 12/02/2024 Nonspecific abnormal results of liver function *03/31/2009 [...] pneumonia [J18.9] 06/06/2023 06/06/2023 Diagnosed: 06/06/2023 Mild dehy (more content not included)... Normal [facility] XR FOOT 3V AP/LAT/OBL LTon 0 01-22-2025 XR FOOT 3V AP/LAT/OBL LT * * *Final Repo rt* * * DATE OF EXAM: Jan 22 2025 4:13PM WRX [id number] - XR FOOT 3V AP/LAT/OBL LT / PROCEDURE REASON: Closed fracture of foot, unspecified laterality, initial encounter * * * * Physician Interpretation * * * * PROCEDURE: Left foot INDICATION: Closed fracture of foot, unspecified laterality, initial encounter .2 week follow up for fx to metatarsal necks TECHNIQUE: XR FOOT 3V AP/LAT/OBL LT COMPARISON: 01/12/2025 FINDINGS: Healing 2nd, 3rd, and 4th metatarsal neck fractures in stable alignment. No articular extension. Joint spaces are maintained. Calcaneal spurs. IMPRESSION: Stable 2nd through 4th metatarsal neck fractures Communications Editor: BERNIE Transcribe Date/Time: Jan 28 2025 7:42A Dictated by : DANELLE BHAGAT MD This examination was interpreted and the report reviewed and electronically signed by: DANELLE BHAGAT MD on Jan 28 2025 7:45AM EST [id number] Normal [facility] Absolute lymphocyte countOrd ered By: Mathieu Virgen on 01-21-2025 Lymphocytes Auto (Unsp spec) [#/Vol] 1.71 10*3/uL 0.83-4.51 [facility] Absolute neutrophil countOrd ered By: Mathieu Virgen on 01-21-2025 Neutrophils (Bld) [#/Vol] 7.3 10*3/uL 2.0-7.7 [facility] Automated lymphocyte count a s percentage of total leukocytesOrdered By: Mathieu Virgen on 01-21-2025 Lymphocytes/100 WBC Auto (Unsp spec) 16.5 % Low 19-41 [facility] Basophil percentageOrdered B y: Mathieu Virgen on 01-21-2025 Basophils/100 WBC (Bld) 0.3 % 0-1 [facility] Eosinophil percentageOrdered By: Mathieu Virgen on 01-21-2025 Eosinophils/100 WBC (Bld) 2.4 % 0-5 [facility] Erythrocyte distribution wid th ratioOrdered By: Mathieu Virgen on 01-21-2025 Erythrocyte distribution width (RBC) [Ratio] 15.9 % High 11.6-14.6 [facility] Erythrocyte distribution wid th standard deviationOrdered By: Mathieu Virgen on 01-21-2025 Erythrocyte distribution width (RBC) [Ratio] 47.5 fl High 35.1-43.9 [facility] Hematocrit Auto (Bld) [Volum e fraction]Ordered By: Mathieu Virgen on 01-21-2025 Hematocrit (Bld) [Volume fraction] 43.5 % 40-54 [facility] Hemoglobin measurementOrdere d By: Mathieu Virgen on 01-21-2025 Hemoglobin (Bld) [Mass/Vol] 14.4 g/dL 13.0-16. 5 [facility] Immature granulocytes/100 WB C Auto (Bld)Ordered By: Mathieu Virgen on 01-21-2025 Immature granulocytes/100 WBC (Bld) 0.500 % 0.0-0.9 [facility] Comment on above: IG% - Immature Granu locytes (promyelocytes, myelocytes and metamyelocytes) > 1% indicates that a LEFT SHIFT is Present. MCV (mean corpuscular volume ) determinationOrdered By: Mathieu Virgen on 01-21-2025 MCV (RBC) [Entitic vol] 81.5 fL 80-94 [facility] Mean corpuscular hemoglobin (MCH) determinationOrdered By: Mathieu Virgen on 01-21-2025 MCH (RBC) [Entitic mass] 27.0 pg 27.0-32.0 [facility] Mean corpuscular hemoglobin concentration (MCHC) determinationOrdered By: Mathieu Virgen on 01-21-2025 MCHC (RBC) [Mass/Vol] 33.1 g/dL 32-36 [facility] Mean platelet volume determi nationOrdered By: Mathieu Virgen on 01-21-2025 Platelet mean volume (Bld) [Entitic vol] 10.6 fL 6.2-12.0 [facility] Monocyte percentageOrdered B y: Mathieu Virgen on 01-21-2025 Monocytes/100 WBC (Bld) 10.2 % High 0-10 [facility] Neutrophil percentageOrdered By: Mathieu Virgen on 01-21-2025 Neutrophils/100 WBC (Bld) 70.1 % High 47-70 [facility] Nucleated red blood cell per centageOrdered By: Mathieu Virgen on 01-21-2025 Nucleated RBC/100 WBC (Bld) [Ratio] 0 % 0-5 [facility] Platelet countOrdered By: Shannon Virgen on 01-21-2025 Platelets (Bld) [#/Vol] 241 10*3/uL 150-450 [facility] Pulmonary Visit Reporton Pulmonary Visit Report [facility] RBC Auto (Bld) [#/Vol]Ordere d By: Mathieu Virgen on 01-21-2025 RBC (Bld) [#/Vol] 5.34 10*6/uL 4.6-6.2 [facility] Review by pathologistOrdered By: Mathieu Virgen on 01-21-2025 Pathologist review Rey (Unsp spec) [Interp] Tamara bernard [facility] Pathologist review Rey (Unsp spec) [Interp] Reviewed [facility] Comment on above: Previous reported re sult: Tamara bernard Edited by: IRON on 02/05/25:1603SEE REPORT IN PATIENT'S EMR AMENDED REPORT 02/05/25 1603 PATH REV previously reported as: Tamara bernard White blood cell (WBC) count Ordered By: Mathieu Virgen on 01-21-2025 WBC (Bld) [#/Vol] 10.4 10*3/uL 4.4-11.0 [facility] Emergency Department Summary on 01-20-2025 Emergency Department Summary Normal [facility] L499.0042on 01-20-2025 Trop T High Sen 51 ng/L High <=22 [facility] Comment on above: Order Comment: *THIS IS ACTUALLY 4 HOUR TROP* Result Comment: Crit ical Result(s) Called at: by:??Results read back bysame. Performed By: #### L 499.0042 ####[facility] [address] [place], [place], [id number] L499.0043on 01-20-2025 Trop T High Sen 53 ng/L High <=22 [facility] Comment on above: Order Comment: *THIS IS ACTUALLY 2 HOUR TROP* Result Comment: Crit ical Result(s) Called at: 0349 by: LAUREN DAVIS Results read back by same. AMENDED REPORT 01/20/25 2251 Trop T HS 4HR previously reported as: 51 H ng/L Performed By: #### L 499.0043 ####[facility] [address] [facility] [place], [place], [id number] Troponin T.cardiac [Mass/vol ume] in Serum or Plasma by High sensitivity methodOrdered By: Abraham Tierney on 01-20-2025 Troponin T.cardiac High sensitivity method [Mass/Vol] 51 ng/L High <22 [facility] Comment on above: Critical Result(s) C alled at: by: Results read back by same. Troponin T.cardiac High sensitivity method [Mass/Vol] 53 ng/L High <22 [facility] Comment on above: Critical Result(s) C alled at: 0349 by: LAUREN THOMPSONMERS Results read back by same.Previous reported result: 51 ng/LEdited by: AUTOINS on 01/20/25:0351 AMENDED REPORT 01/20/25350 Trop T HS 4HR previously reported as: 51 H ng/L 12 Lead EKGon 01-19-2025 12 Lead EKG Normal [facility] Absolute lymphocyte countOrd ered By: Abraham Tierney on 01-19-2025 Lymphocytes Auto (Unsp spec) [#/Vol] 2.50 10*3/uL 0.83-4.51 [facility] Absolute neutrophil countOrd ered By: Abraham Tierney on 01-19-2025 Neutrophils (Bld) [#/Vol] 8.3 10*3/uL High 2.0-7.7 [facility] Anion gap in Serum or Plasma Ordered By: Abraham Tierney on 01-19-2025 Anion gap [Moles/Vol] 14 mmol/L 5-15 [facility] Automated blood erythrocyte countOrdered By: Abraham Tierney on 01-19-2025 RBC (Bld) [#/Vol] 5.58 10*6/uL Normal 4.6-6.2 [facility] Comment on above: Performed By: #### L 500.2500, L100.0100, L501.4021 ####[facility] [address] [place], [place], [id number] Automated blood hematocrit ( percentage)Ordered By: Abraham Tierney on 01-19-2025 Hematocrit (Bld) [Volume fraction] 44.8 % Normal 40-54 [facility] Comment on above: Performed By: #### L 500.2500, L100.0100, L501.4021 ####[facility] [address] [place], [address] Automated lymphocyte count a s percentage of total leukocytesOrdered By: Abraham Tierney on 01-19-2025 Lymphocytes/100 WBC Auto (Unsp spec) 19.7 % 19-41 [facility] BUN/creatinine ratioOrdered By: Abraham Tierney on 01-19-2025 Urea nitrogen/Creatinine [Mass ratio] 25.0 mg/mg High 10-20 [facility] Basic Metabolic Profile (BMP )on 01-19-2025 BUN/CRE 25.0 RATIO High -20 [facility] Comment on above: Performed By: #### L 500.2500, L100.0100, L501.4021 ####[facility] [address] [place], [address] ECRCL 64.50 ml/min Normal 50-250 [facility] Comment on above: Performed By: #### L 500.2500, L100.0100, L501.4021 ####[facility] [address] [place], [address] GAP 14 Normal 5-15 [facility] Comment on above: Performed By: #### L 500.2500, L100.0100, L501.4021 ####[facility] [address] [place], [address] Potassium [Moles/Vol] 3.9 mmol/L Normal 3.3-5.1 [facility] Comment on above: Performed By: #### L 500.2500, L100.0100, L501.4021 ####[facility] [address] [place], [address] Basophil percentageOrdered B y: Abraham Tierney on 01-19-2025 Basophils/100 WBC (Bld) 0.5 % Normal 0-1 [facility] Comment on above: Performed By: #### L 500.2500, L100.0100, L501.4021 ####[facility] [address] [place], [address] CBC W/Diff, Automatedon Absolute Lymph 2.50 X10 3/uL Normal 0.83-4.51 [facility] Comment on above: Performed By: #### L 500.2500, L100.0100, L501.4021 ####[facility] [address] [place], [address] Absolute Neut 8.3 X10 3/uL High 2.0-7.7 [facility] Comment on above: Performed By: #### L 500.2500, L100.0100, L501.4021 ####[facility] [address] [place], [address] IG% 0.500 Normal 0.0-0.9 [facility] Comment on above: Result Comment: IG% - Immature Granulocytes (promyelocytes, myelocytes andmetamyelocytes) > 1% indicates that a LEFT SHIFT is Present. Performed By: #### L 500.2500, L100.0100, L501.4021 ####[facility] [address] [place], [address] Lymphocytes/100 WBC (Bld) 19.7 % Normal 19-41 [facility] Comment on above: Performed By: #### L 500.2500, L100.0100, L501.4021 ####[facility] [address] [place], [address] Nucleated RBC (Bld) [#/Vol] 0 10*3/uL Normal 0-5 [facility] Comment on above: Performed By: #### L 500.2500, L100.0100, L501.4021 ####[facility] [address] [place], [address] RDW SD 46.3 fl High 35.1-43.9 [facility] Comment on above: Performed By: #### L 500.2500, L100.0100, L501.4021 ####[facility] [address] [place], [address] Carbon dioxide, total [Moles /volume] in Central venous bloodOrdered By: Abraham Tierney on 01-19-2025 CO2 [Moles/Vol] 22.5 mmol/L Normal 21.0-32.0 [facility] Comment on above: Performed By: #### L 500.2500, L100.0100, L501.4021 ####[facility] [address] [place], [address] Chest 1 View (Portable)on Chest 1 View (Portable) Normal [facility] Chloride assayOrdered By: Pineda Tierney on 01-19-2025 Chloride [Moles/Vol] 98 mmol/L Normal 98-108 [facility] Comment on above: Performed By: #### L 500.2500, L100.0100, L501.4021 ####[facility] [address] [place], [address] Eosinophil percentageOrdered By: Abraham Tierney on 01-19-2025 Eosinophils/100 WBC (Bld) 2.7 % Normal 0-5 [facility] Comment on above: Performed By: #### L 500.2500, L100.0100, L501.4021 ####[facility] [address] [place], [address] Erythrocyte distribution wid th ratioOrdered By: Abraham Tierney on 01-19-2025 Erythrocyte distribution width (RBC) [Ratio] 16.0 % High 11.6-14.6 [facility] Comment on above: Performed By: #### L 500.2500, L100.0100, L501.4021 ####[facility] [address] [place], [address] Erythrocyte distribution wid th standard deviationOrdered By: Abraham Tierney on 01-19-2025 Erythrocyte distribution width (RBC) [Ratio] 46.3 fl High 35.1-43.9 [facility] Glomerular filtration rate ( GFR) estimation/1.73 sq m using serum, plasma, or whole bOrdered By: Abraham Tierney on 01-19-2025 GFR/1.73 sq M.predicted among non-blacks MDRD (S/P/Bld) [Vol rate/Area] 58 mL/min/{1.73_m2} Low >60 [facility] Comment on above: mL/min/1.73m2 CKD-EP I Creatinine Equation (2020) Result Comment: mL/m in/1.73m2 CKD-EPI Creatinine Equation (2020) Performed By: #### L 500.2500, L100.0100, L501.4021 ####[facility] [address] [place], [address] Hemoglobin measurementOrdere d By: Abraham Tierney on 01-19-2025 Hemoglobin (Bld) [Mass/Vol] 15.0 g/dL Normal 13.0-16. 5 [facility] Comment on above: Performed By: #### L 500.2500, L100.0100, L501.4021 ####[facility] [address] [place], [address] Immature granulocytes/100 WB C Auto (Bld)Ordered By: Abraham Tierney on 01-19-2025 Immature granulocytes/100 WBC (Bld) 0.500 % 0.0-0.9 [facility] Comment on above: IG% - Immature Granu locytes (promyelocytes, myelocytes and metamyelocytes) > 1% indicates that a LEFT SHIFT is Present. L501.4021on 01-19-2025 Trop T High Sen 49 ng/L High <=22 [facility] Comment on above: Performed By: #### L 500.2500, L100.0100, L501.4021 ####[facility] [address] [place], [address] MCV (mean corpuscular volume ) determinationOrdered By: Abraham Tierney on 01-19-2025 MCV (RBC) [Entitic vol] 80.3 fL Normal 80-94 [facility] Comment on above: Performed By: #### L 500.2500, L100.0100, L501.4021 ####[facility] [address] [place], [address] Mean corpuscular hemoglobin (MCH) determinationOrdered By: Abraham Tierney on 01-19-2025 MCH (RBC) [Entitic mass] 26.9 pg Low 27.0-32.0 [facility] Comment on above: Performed By: #### L 500.2500, L100.0100, L501.4021 ####[facility] [address] [place], [address] Mean corpuscular hemoglobin concentration (MCHC) determinationOrdered By: Abraham Tierney on 01-19-2025 MCHC (RBC) [Mass/Vol] 33.5 g/dL Normal 32-36 [facility] Comment on above: Performed By: #### L 500.2500, L100.0100, L501.4021 ####[facility] [address] [place], [address] Mean platelet volume determi nationOrdered By: Abraham Tierney on 01-19-2025 Platelet mean volume (Bld) [Entitic vol] 10.9 fL Normal 6.2-12.0 [facility] Comment on above: Performed By: #### L 500.2500, L100.0100, L501.4021 ####[facility] [address] [place], [address] Monocyte percentageOrdered B y: Abraham Tierney on 01-19-2025 Monocytes/100 WBC (Bld) 11.4 % High 0-10 [facility] Comment on above: Performed By: #### L 500.2500, L100.0100, L501.4021 ####[facility] [address] [place], [address] Neutrophil percentageOrdered By: Abraham Tierney on 01-19-2025 Neutrophils/100 WBC (Bld) 65.2 % Normal 47-70 [facility] Comment on above: Performed By: #### L 500.2500, L100.0100, L501.4021 ####[facility] [address] [place], [address] Nucleated red blood cell per centageOrdered By: Abraham Tierney on 01-19-2025 Nucleated RBC/100 WBC (Bld) [Ratio] 0 % 0-5 [facility] Platelet countOrdered By: Pineda kimberly Kelsy on 01-19-2025 Platelets (Bld) [#/Vol] 273 10*3/uL Normal 150-450 [facility] Comment on above: Performed By: #### L 500.2500, L100.0100, L501.4021 ####[facility] [address] [place], [address] Potassium measurement (mass/ volume)Ordered By: Abraham Tierney on 01-19-2025 Potassium (Unsp spec) [Mass/Vol] 3.9 mmol/L 3.3-5.1 [facility] Serum creatinine measurement (mass/volume)Ordered By: Abraham Tierney on 01-19-2025 Creatinine [Mass/Vol] 1.25 mg/dL High 0.70-1.20 [facility] Comment on above: Performed By: #### L 500.2500, L100.0100, L501.4021 ####[facility] [address] [place], [address] Serum glucose measurement (m ass/volume)Ordered By: Abraham Tierney on 01-19-2025 Glucose [Mass/Vol] 156 mg/dL High 70-99 [facility] Comment on above: Performed By: #### L 500.2500, L100.0100, L501.4021 ####[facility] [address] [place], [address] Serum or plasma calcium nahomy urement (mass/volume)Ordered By: Abraham Tierney on 01-19-2025 Calcium [Mass/Vol] 9.9 mg/dL Normal 7.6-11.0 [facility] Comment on above: Performed By: #### L 500.2500, L100.0100, L501.4021 ####[facility] [address] [place], [address] Serum or plasma urea nitroge n measurement (mass/volume)Ordered By: Abraham Tierney on 01-19-2025 Urea nitrogen [Mass/Vol] 31 mg/dL High 4-19 [facility] Comment on above: Performed By: #### L 500.2500, L100.0100, L501.4021 ####[facility] [address] [place], [address] Sodium levelOrdered By: Abraham Tierney on 01-19-2025 Sodium [Moles/Vol] 134 mmol/L Normal 133-145 [facility] Comment on above: Performed By: #### L 500.2500, L100.0100, L501.4021 ####[facility] [address] [place], [address] Troponin T.cardiac [Mass/vol ume] in Serum or Plasma by High sensitivity methodOrdered By: Abraham Tierney on 01-19-2025 Troponin T.cardiac High sensitivity method [Mass/Vol] 49 ng/L High <22 [facility] White blood cell (WBC) count Ordered By: Abraham Tierney on 01-19-2025 WBC (Bld) [#/Vol] 12.7 10*3/uL High 4.4-11.0 [facility] Comment on above: Performed By: #### L 500.2500, L100.0100, L501.4021 ####[facility] [address] [place], [place], [address] CNOVon 01-12-2025 CNOV Office Visit (THERESAPWS ) FAISAL ALARCON ([id number]) 1945 M Date Time Provider Department 01/12/25 5:00 PM [facility] During your visit today, we recorded the following information about you: Pulse Blood pressure Weight 77/minute 112/62 121.6 kg Mathieu Virgen MD 01/12/2025 5:13 PM Signed Patient presents with: Pain (foot): Left foot. Red and swollen. Has been that way for awhile. Has really improved from what it was. Recalls no injury. HPI: Patient presents today for office visit for follow up. Had a fall a week ago. Is much better now. He noted his foot was swollen and red after. He had tripped over cats that he has. Had issues moving his toes. Can bear weight on it. Looks much better or feels much better than it was. Did not check for warmth. No fever. Ankle is fine. No head injury or LOC. Just elevated it. No treatment given. MEDICATIONS: Current Outpatient Medications Medication Sig insulin glargine (BASAGLAR KWIKPEN U-100 INSULIN) 100 unit/mL (3 mL) Inject 47 Units subcutaneously daily at bedtime. losartan (COZAAR) 25 mg tablet Take 0.5 tablets by mouth once daily. insulin aspart, niacinamide, (FIASP FLEXTOUCH U-100 INSULIN) 100 unit/mL (3 mL) pen Inject 26 Units subcutaneously three times a day before meals. finasteride (PROSCAR) 5 mg tablet Take 1 tablet by mouth once daily. dilTIAZem CD (CARDIZEM CD, CARTIA XT) 120 mg 24 hr capsule Take 1 capsule by mouth once daily. flecainide (TAMBOCOR) 100 mg tablet Take 100 mg by mouth two times a day. spironolactone (ALDACTONE) 25 mg tablet Take 25 mg by mouth once daily. isosorbide mononitrate ER (IMDUR) 30 mg 24 hr tablet Take 1 tablet by mouth every afternoon. Ordered by cardiology Blood-Glucose Sensor (DEXCOM G7 SENSOR) sayra Apply new sensor every ten (10) days. metFORMIN ER (GLUCOPHAGE XR) 500 mg 24 hr tablet Take 2 tablets by mouth two times a day before meals. furosemide (LASIX) 40 mg tablet Take 1 tablet by mouth once daily. atorvastatin (LIPITOR) 20 mg tablet Take 1 tablet by mouth once daily. Replaces simvastatin OXYGEN, HOME THERAPY, 2 L/min by Nasal Cannula route continuous. famotidine (PEPCID) 20 mg tablet Take 1 tablet by mouth two times a day. OTC NUTRITIONAL SUPPLEMENT NUVOFLEX TURMERIC ORAL Take by mouth. tamsulosin (FLOMAX) 0.4 mg Take 1 capsule by mouth every 12 hours. solifenacin 10 mg tablet Take 1 tablet by mouth every afternoon. empagliflozin (JARDIANCE) 25 mg tablet Take 1 tablet by mouth once daily. Take 1 tablet once daily in the morning cyanocobalamin (VITAMIN B-12) 1,000 mcg tab Take 1 tablet by mouth once daily. carvedilol (COREG) 25 mg tablet Take 1 tablet by mouth two times a day. ELIQUIS 5 mg tab(s) Take 1 tablet by mouth two times a day. colestipol (COLESTID) 1 gram tablet Take 1 tablet by mouth once daily. albuterol HFA (VENTOLIN HFA) 90 mcg/actuation inhaler Inhale 2 Puffs as instructed every 4 hours as needed. aspirin 81 mg chewable tablet Take 81 [...] packs/day for 10.0 years (20.0 ttl pk-yrs) Ty (more content not included)... [facility] CNPNon 01-12-2025 CNPN Telephone (FAMPWS) FAISAL ALARCON ([id number]) 1945 M Date Time Provider Department 01/12/25 MATHIEU VIRGEN [facility] During your visit today, we recorded the following information about you: Mathieu Virgen MD 01/12/2025 7:32 PM Signed Shows a fracture in his foot. See if can get into podiatry. See if we can get him in a post op shoe. Lulu Walls MA 01/13/2025 8:07 AM Signed Spoke with both patient and his daughter Farida. Informed of result. Farida states patient already has a boot at home he can wear. Sending to schedulers for Podiatry consult. JOSE ARMANDO Ramírez Stephanie 01/13/2025 8:28 AM Signed Attempted to contact daughter, Farida, but no answer and voicemail full. Should she call back, please schedule podiatry consult. Reanna Cloud 01/15/2025 8:44 AM Signed Spoke with daughter to schedule podiatry appointments but she has questions re: what the cytogenetic technician would do. Transferred to clinical for assistance. Mathieu Virgen MD 01/15/2025 12:05 PM Signed Let her know fractures of this type need followed by a specialist to ensure they heal correctly. Liyah Monroy RN 01/15/2025 12:55 PM Signed Pts daughter Farida called and is notified of providers message and instructions. She voices understanding and states they made and appointment for 01/22/25. She states they told them that Pts PCP has to order shoes for Pt for his insurance [employer] to pay for them. I told her I would send a message to provider and ask. Please call and advise. NILDA Montalvo William J, MD 01/15/2025 2:14 PM Signed See below. Already wrote for post op shoe that can be obtained here or elsewhere. Script is on this note. In addition, she said earlier she had a boot at home. ??? Lulu Walls MA 01/16/2025 3:35 PM Signed Patients daughter came into office and picked up hard Rx for post op shoe. Lulu Walls MA Allergies As of Date: 01/12/2025 Noted Allergy Reaction AMOXICILLIN 05/11/2005 Comments: generalized erythema Date Reviewed: 01/12/2025 Reviewed by: Jaylene Henley LPN - Fully Assessed Reason for Visit: Results [95] Primary Visit Diagnosis:Closed fracture of foot, unspecified laterality, initial encounter [S92.909A] Order(s):CONSULT TO PODIATRY [9034] Order #: [id number]: 1 FUTURE POST - OP SHOE [[id number]] Order #: [id number] Prescriptions as of 01/16/2025 - carvedilol (COREG) 25 mg tablet Take 1 tablet by mouth two times a day. - insulin glargine (BASAGLAR KWIKPEN U-100 INSULIN) 100 unit/mL (3 mL) Inject 47 Units subcutaneously daily at bedtime. - losartan (COZAAR) 25 mg tablet Take 0.5 tablets by mouth once daily. - insulin aspart, niacinamide, (FIASP FLEXTOUCH U-100 INSULIN) 100 unit/mL (3 mL) pen Inject 26 Units subcutaneously three times a day before meals. - finasteride (PROSCAR) 5 mg tablet Take 1 tablet by mouth once daily. - dilTIAZem CD (CARDIZEM CD, CARTIA XT) 120 mg 24 hr capsule Take 1 capsule by mouth once daily. - flecainide (TAMBOCOR) 100 mg tablet Take 100 mg by mouth two times a day. - spironolactone (ALDACTONE) 25 mg tablet Take 25 mg by mouth once daily. - isosorbide mononitrate ER (IMDUR) 30 mg 24 hr tablet Take 1 tablet by mouth every afternoon. Ordered by cardiology - Blood-Glucose Sensor (DEXCOM G7 SENSOR) sayra Apply new sensor every ten (10) days. - metFORMIN ER (GLUCOPHAGE XR) 500 mg 24 hr tablet Take 2 tablets by mouth two times a day before meals. - furosemide (LASIX) 40 mg tablet Take 1 tablet by mouth once daily. - atorvastatin (LIPITOR) 20 mg tablet Take 1 tablet by mouth once daily. Replaces simvastatin - OXYGEN, HOME THERAPY, 2 L/min by Nasal Cannula route continuous. - famotidine (PEPCID) 20 mg tablet Take 1 tablet by mouth two times a day. - OTC NUTRITIONAL SUPPLEMENT NUVOFLEX - TURMERIC ORAL Take by mouth. - tamsulosin (FLOMAX) 0.4 mg Take 1 capsule by mouth every 12 hours. - solifenacin 10 mg tablet Take 1 tablet by mouth every afternoon. - empagliflozin (JARDIANCE) 25 mg tablet Take 1 tablet by mouth once daily. Take 1 tablet once daily in the morning - cyanocobalamin (VITAMIN B-12) 1,000 mcg tab Take 1 tablet by mouth once daily. - ELIQUIS 5 mg tab(s) Take 1 tablet by mouth two times a day. - colestipol (COLESTID) 1 gram tablet Take 1 tablet by mouth once daily. - albuterol HFA (VENTOLIN HFA) 90 mcg/actuation inhaler Inhale 2 Puffs as instructed every 4 hours as needed. - aspirin 81 mg chewable tablet Take [...] dependent. - Lancets (ACCU-CHEK SOFTCLIX LANCETS) lancets (more content not included)... [facility] XR FOOT 3V AP/LAT/OBL LTon 0 01-12-2025 XR FOOT 3V AP/LAT/OBL LT * * *Final Repo rt* * * DATE OF EXAM: Jan 12 2025 5:33PM WOX [id number] - XR FOOT 3V AP/LAT/OBL LT / PROCEDURE REASON: multiple diagnoses * * * * Physician Interpretation * * * * EXAMINATION: LEFT FOOT X-RAY SERIES HISTORY: Contusion of left foot, subsequent encounter Foot pain, left COMPARISON: None available. TECHNIQUE: AP, lateral and oblique views. RESULT: There are acute appearing fractures through the distal neck of the second, third and fourth metatarsals. There is a moderate hallux abductovalgus deformity. Mild degenerative changes at the first MTP joint. There is a small plantar calcaneal heel spur and small posterior calcaneal enthesophyte. Mild soft tissue swelling over the dorsum of the forefoot. IMPRESSION: 1. Acute appearing fracture through the distal neck of the second third and fourth metatarsals. 2. Mild bunion deformity with mild degenerative changes at the first MTP joint. 3. Small plantar calcaneal heel spur. Communications Editor: BERNIE Transcribe Date/Time: Jan 12 2025 7:00P Dictated by : NARDA REEVES MD This examination was interpreted and the report reviewed and electronically signed by: NARDA REEVES MD on Jan 12 2025 7:02PM EST [id number] [facility] XR Foot - left AP and Latera l and obliqueon 01-12-2025 IMPRESSION: 1. Acute appearing fracture through the distal neck of the second third and fourth metatarsals. 2. Mild bunion deformity with mild degenerative changes at the first MTP joint. 3. Small plantar calcaneal heel spur. Communications Editor: BERNIE Transcribe Date/Time: Jan 12 2025 7:00P Dictated by : NARDA REEVES MD This examination was interpreted and the report reviewed and electronically signed by: NARDA REEVES MD on Jan 12 2025 7:02PM EST DIVISION OF RADIOLOGY * * *Final Report* * * DATE OF EXAM: Jan 12 2025 5:33PM [id number] - XR FOOT 3V AP/LAT/OBL LT / PROCEDURE REASON: multiple diagnoses * * * * Physician Interpretation * * * * EXAMINATION: LEFT FOOT X-RAY SERIES HISTORY: Contusion of left foot, subsequent encounter Foot pain, left COMPARISON: None available. TECHNIQUE: AP, lateral and oblique views. RESULT: There are acute appearing fractures through the distal neck of the second, third and fourth metatarsals. There is a moderate hallux abductovalgus deformity. Mild degenerative changes at the first MTP joint. There is a small plantar calcaneal heel spur and small posterior calcaneal enthesophyte. Mild soft tissue swelling over the dorsum of the forefoot. DIVISION OF RADIOLOGY Provider, [facility] - 01/12/2025 * * *Final Report* * * DATE OF EXAM: Jan 12 2025 5:33PM WOX [id number] - XR FOOT 3V AP/LAT/OBL LT / PROCEDURE REASON: multiple diagnoses * * * * Physician Interpretation * * * * EXAMINATION: LEFT FOOT X-RAY SERIES HISTORY: Contusion of left foot, subsequent encounter Foot pain, left COMPARISON: None available. TECHNIQUE: AP, lateral and oblique views. RESULT: There are acute appearing fractures through the distal neck of the second, third and fourth metatarsals. There is a moderate hallux abductovalgus deformity. Mild degenerative changes at the first MTP joint. There is a small plantar calcaneal heel spur and small posterior calcaneal enthesophyte. Mild soft tissue swelling over the dorsum of the forefoot. IMPRESSION IMPRESSION: 1. Acute appearing fracture through the distal neck of the second third and fourth metatarsals. 2. Mild bunion deformity with mild degenerative changes at the first MTP joint. 3. Small plantar calcaneal heel spur. Communications Editor: PSCB Transcribe Date/Time: Jan 12 2025 7:00P Dictated by : NARDA REEVES MD This examination was interpreted and the report reviewed and electronically signed by: NARDA REEVES MD on Jan 12 2025 7:02PM EST [facility] Radiology Study observation (narrative) [facility] XR Foot - left AP and Latera l and obliqueOrdered By: Ccf Provider on 01-12-2025 [facility] Cardiology Visit Reporton Cardiology Visit Report [facility] CNPNon 12-03-2024 CNPN Telephone (FAMPWS) ESHAFAISAL Camilo ([id number]) 1945 Date Time Provider Department 12/03/24 [facility] During your visit today, we recorded the following information about you: Aly Mandel MA 12/03/2024 6:43 PM Signed Received PA from pharmacy for Fiasp Flextouch. Tried to complete through [employer] but was instructed to call [employer] at . Spoke to [facility] who will submit info to pharmacy for PA. JOSE ARMANDO Starr Stephanie, RN 12/04/2024 11:18 AM Signed Medardo from [employer] calls and reports that patient's medication is approved until 09/06/2025. [employer]ardo is faxing over approval letter. NILDA Colbert Janice, LPN 12/04/2024 11:53 AM Signed Rec'd and in scanned documents. Pharmacy notified. Tonia Ellis LPN 12/04/2024 4:21 PM Signed Pt and caregiver notified via [employer]. 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 - losartan (COZAAR) 25 mg tablet Take 0.5 tablets by mouth once daily. - insulin aspart, niacinamide, (FIASP FLEXTOUCH U-100 INSULIN) 100 unit/mL (3 mL) pen Inject 26 Units subcutaneously three times a day before meals. - finasteride (PROSCAR) 5 mg tablet Take 1 tablet by mouth once daily. - dilTIAZem CD (CARDIZEM CD, CARTIA XT) 120 mg 24 hr capsule Take 1 capsule by mouth once daily. - flecainide (TAMBOCOR) 100 mg tablet Take 100 mg by mouth two times a day. - spironolactone (ALDACTONE) 25 mg tablet Take 25 mg by mouth once daily. - isosorbide mononitrate ER (IMDUR) 30 mg 24 hr tablet Take 1 tablet by mouth every afternoon. Ordered by cardiology - Blood-Glucose Sensor ([employer] G7 SENSOR) sayra Apply new sensor every ten (10) days. - metFORMIN ER (GLUCOPHAGE XR) 500 mg 24 hr tablet Take 2 tablets by mouth two times a day before meals. - furosemide (LASIX) 40 mg tablet Take 1 tablet by mouth once daily. - atorvastatin (LIPITOR) 20 mg tablet Take 1 tablet by mouth once daily. Replaces simvastatin - OXYGEN, HOME THERAPY, 2 L/min by Nasal Cannula route continuous. - famotidine (PEPCID) 20 mg tablet Take 1 tablet by mouth two times a day. - OTC NUTRITIONAL SUPPLEMENT NUVOFLEX - TURMERIC ORAL Take by mouth. - tamsulosin (FLOMAX) 0.4 mg Take 1 capsule by mouth every 12 hours. - solifenacin 10 mg tablet Take 1 tablet by mouth every afternoon. - empagliflozin (JARDIANCE) 25 mg tablet Take 1 tablet by mouth once daily. Take 1 tablet once daily in the morning - cyanocobalamin (VITAMIN B-12) 1,000 mcg tab Take 1 tablet by mouth once daily. - carvedilol (COREG) 25 mg tablet Take 1 tablet by mouth two times a day. - ELIQUIS 5 mg tab(s) Take 1 tablet by mouth two times a day. - colestipol (COLESTID) 1 gram tablet Take 1 tablet by mouth once daily. - albuterol HFA (VENTOLIN HFA) 90 mcg/actuation inhaler Inhale 2 Puffs as instructed every 4 hours as needed. - aspirin 81 mg chewable tablet Take [...] of 08/20/2013: Problem List As Of Date 12/03/2024 Noted Resolved OTHER PSORIASIS [L40.8] 05/11/2005 Essential hypertension [I10] 05/11/2005 Morbid obesity (HCC) [E66.01] 05/11/2005 06/06/2023 Paranoid schizophrenia, subchronic condition wi*05/11/2005 04/23/2017 Type 2 diabetes mellitus with microalbuminuria *05/11/2005 Pure hypercholesterolemia [E78.00] 06/13/2005 06/06/2023 Sciatica [M54.30] 06/15/2005 05/06/2021 LUMB DISC DIS W MYELOPAT [M51.06] 09/22/2005 CJ (obstructive sleep apnea) [G47.33] 03/31/2009 12/02/2024 Nonspecific abnormal results of liver function *03/31/2009 03/03/2022 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 [facility] CNOVon 12-02-2024 CNOV Office Visit (FAMPWS ) FAISAL ALARCON ([id number]) 1945 M Date Time Provider Department 12/02/24 3:40 PM MATHIEU VIRGENCHANI During your visit today, we recorded the following information about you: Pulse Blood pressure Weight Height 78/minute 92/54 123.8 kg 1.854 m Mathieu Virgen MD 12/02/2024 5:17 PM Signed Patient presents with: Follow Up HPI: Patient presents today for office visit for medication reconciliation per insurance. Labs done. Reviewed overall ar stable. His bmp is stable with gfr of 62. A1c is 7.0. lipids are good. White count is slightly up at 12. Has been following with [facility]. Seeing pulmonary. Uro: follows with Dr Daley. White count has been slightly minimally for the last year up and down. Now using bipap. He is still having some low sugars at night. They changed his basaglar to in the am. Is taking 50 mg of basaglar. Humalog is 26 units tid. Daughter wants to switch him to fiasp that is rapid acting. We discussed limiting hypoglycemic spells. Now diagnosed with diabetic retinopathy. Edema is doing or weight gain. No new shortness of breath. No chest pain. Pharmacist had called concerned that they were not following up on labs and meds etc which is not correct. Daughter is very involved and very much updated on his health. He has seen his specialist. Has seen Sukh recently in and is up to date on labs. His sugar control and labs are very good. Bp has continued to be tight. No symptoms. We talked about decreasing his meds slightly . MEDICATIONS: Current Outpatient Medications Medication Sig finasteride (PROSCAR) 5 mg tablet Take 1 tablet by mouth once daily. dilTIAZem CD (CARDIZEM CD, CARTIA XT) 120 mg 24 hr capsule Take 1 capsule by mouth once daily. flecainide (TAMBOCOR) 100 mg tablet Take 100 mg by mouth two times a day. losartan (COZAAR) 25 mg tablet Take 1 tablet by mouth once daily. spironolactone (ALDACTONE) 25 mg tablet Take 25 mg by mouth once daily. isosorbide mononitrate ER (IMDUR) 30 mg 24 hr tablet Take 1 tablet by mouth every afternoon. Ordered by cardiology Blood-Glucose Sensor (DEXCOM G7 SENSOR) sayra Apply new sensor every ten (10) days. metFORMIN ER (GLUCOPHAGE XR) 500 mg 24 hr tablet Take 2 tablets by mouth two times a day before meals. furosemide (LASIX) 40 mg tablet Take 1 tablet by mouth once daily. atorvastatin (LIPITOR) 20 mg tablet Take 1 tablet by mouth once daily. Replaces simvastatin OXYGEN, HOME THERAPY, 2 L/min by Nasal Cannula route continuous. famotidine (PEPCID) 20 mg tablet Take 1 tablet by mouth two times a day. OTC NUTRITIONAL SUPPLEMENT NUVOFLEX TURMERIC ORAL Take by mouth. tamsulosin (FLOMAX) 0.4 mg Take 1 capsule by mouth every 12 hours. solifenacin 10 mg tablet Take 1 tablet by mouth every afternoon. empagliflozin (JARDIANCE) 25 mg tablet Take 1 tablet by mouth once daily. Take 1 tablet once daily in the morning cyanocobalamin (VITAMIN B-12) 1,000 mcg tab Take 1 tablet by mouth once daily. carvedilol (COREG) 25 mg tablet Take 1 tablet by mouth two times a day. ELIQUIS 5 mg tab(s) Take 1 tablet by mouth two times a day. colestipol (COLESTID) 1 gram tablet Take 1 tablet by mouth once daily. albuterol HFA (VENTOLIN HFA) 90 mcg/actuation inhaler Inhale 2 Puffs as instructed every 4 hours as needed. insulin lispro (HUMALOG KWIKPEN INSULIN) 100 unit/mL Inject 20 Units subcutaneously three times a day before meals. Getting through [facility] insulin glargine (BASAGLAR KWIKPEN U-100 INSULIN) 100 unit/mL (3 mL) Inject 90 Units subcutaneously daily at bedtime. aspirin 81 mg chewable [...] mouth every 12 hours. Prescribed by outside envelope folder No current facility-administered medications for this visit. [...] Pt declined my recs for testing as (more content not included)... [facility] CBC-Complete Blood Cnt No Di ffon 11-29-2024 Erythrocyte distribution width (RBC) [Ratio] 17.0 % High 11.6-14.6 [facility] Comment on above: Performed By: #### L 500.4050, L502.0250, L500.4100, L501.9985, L100.0500 ####[facility] [id number] [place], [address] Hematocrit (Bld) [Volume fraction] 44.1 % Normal 40-54 [facility] Comment on above: Performed By: #### L 500.4050, L502.0250, L500.4100, L501.9985, L100.0500 ####[facility] [id number] [place], [address] Hemoglobin (Bld) [Mass/Vol] 14.6 g/dL Normal 13.0-16. 5 [facility] Comment on above: Performed By: #### L 500.4050, L502.0250, L500.4100, L501.9985, L100.0500 ####[facility] [address] [place], [address] MCH (RBC) [Entitic mass] 26.6 pg Low 27.0-32.0 [facility] Comment on above: Performed By: #### L 500.4050, L502.0250, L500.4100, L501.9985, L100.0500 ####[facility] [address] [place], [address] MCHC (RBC) [Mass/Vol] 33.1 g/dL Normal 32-36 [facility] Comment on above: Performed By: #### L 500.4050, L502.0250, L500.4100, L501.9985, L100.0500 ####[facility] [address] [place], [address] MCV (RBC) [Entitic vol] 80.3 fL Normal 80-94 [facility] Comment on above: Performed By: #### L 500.4050, L502.0250, L500.4100, L501.9985, L100.0500 ####[facility] [address] [place], [address] Platelet mean volume (Bld) [Entitic vol] 11.2 fL Normal 6.2-12.0 [facility] Comment on above: Performed By: #### L 500.4050, L502.0250, L500.4100, L501.9985, L100.0500 ####[facility] [address] [place], [address] Platelets (Bld) [#/Vol] 282 10*3/uL Normal 150-450 [facility] Comment on above: Performed By: #### L 500.4050, L502.0250, L500.4100, L501.9985, L100.0500 ####[facility] [address] [place], [address] RBC (Bld) [#/Vol] 5.49 10*6/uL Normal 4.6-6.2 [facility] Comment on above: Performed By: #### L 500.4050, L502.0250, L500.4100, L501.9985, L100.0500 ####[facility] [address] [place], [address] RDW SD 49.3 fl High 35.1-43.9 [facility] Comment on above: Performed By: #### L 500.4050, L502.0250, L500.4100, L501.9985, L100.0500 ####[facility] [address] [place], [address] WBC (Bld) [#/Vol] 12.1 10*3/uL High 4.4-11.0 [facility] Comment on above: Performed By: #### L 500.4050, L502.0250, L500.4100, L501.9985, L100.0500 ####[facility] [address] [place], [address] Erythrocyte distribution wid th ratioOrdered By: Mathieu Virgen on 11-29-2024 Erythrocyte distribution width (RBC) [Ratio] 17.0 % High 11.6-14.6 [facility] Erythrocyte distribution wid th standard deviationOrdered By: Mathieu Virgen on 11-29-2024 Erythrocyte distribution width (RBC) [Entitic vol] 49.3 fL High 35.1-43.9 [facility] Erythrocyte distribution width (RBC) [Ratio] 49.3 fl High 35.1-43.9 [facility] Hematocrit Auto (Bld) [Volum e fraction]Ordered By: Mathieu Virgen on 11-29-2024 Hematocrit (Bld) [Volume fraction] 44.1 % 40-54 [facility] Hemoglobin measurementOrdere d By: Mathieu Virgen on 11-29-2024 Hemoglobin (Bld) [Mass/Vol] 14.6 g/dL 13.0-16. 5 [facility] MCV (mean corpuscular volume ) determinationOrdered By: Mathieu Virgen on 11-29-2024 MCV (RBC) [Entitic vol] 80.3 fL 80-94 [facility] Mean corpuscular hemoglobin (MCH) determinationOrdered By: Mathieu Virgen on 11-29-2024 MCH (RBC) [Entitic mass] 26.6 pg Low 27.0-32.0 [facility] Mean corpuscular hemoglobin concentration (MCHC) determinationOrdered By: Mathieu Virgen on 11-29-2024 MCHC (RBC) [Mass/Vol] 33.1 g/dL 32-36 [facility] Mean platelet volume determi nationOrdered By: Mathieu Virgen on 11-29-2024 Platelet mean volume (Bld) [Entitic vol] 11.2 fL 6.2-12.0 [facility] Platelet countOrdered By: Shannon Virgen on 11-29-2024 Platelets (Bld) [#/Vol] 282 10*3/uL 150-450 [facility] RBC Auto (Bld) [#/Vol]Ordere d By: Mathieu Virgen on 11-29-2024 RBC (Bld) [#/Vol] 5.49 10*6/uL 4.6-6.2 [facility] White blood cell (WBC) count Ordered By: Mathieu Virgen on 11-29-2024 WBC (Bld) [#/Vol] 12.1 10*3/uL High 4.4-11.0 [facility] Albumin DL <= 20 mg/L (U) [M ass/Vol]Ordered By: Mathieu Virgen on 11-28-2024 Urine Random Microalbumin 17.0 mg/L NO RANGE EST. [facility] Anion gap in Serum or Plasma Ordered By: Mathieu Virgen on 11-28-2024 Anion gap [Moles/Vol] 13 mmol/L -15 [facility] BUN/creatinine ratioOrdered By: Mathieu Virgen on 11-28-2024 Urea nitrogen/Creatinine [Mass ratio] 19.6 mg/mg 10-20 [facility] Bilirubin, totalOrdered By: Mathieu Virgen on 11-28-2024 Bilirubin [Mass/Vol] 0.49 mg/dL 0.00-1.30 [facility] ESHAFAISAL Russo ([id number]) 1945 M Date Time Provider Department 11/28/24 MATHIEU VIRGEN [facility] During your visit today, we recorded the following information about you: Miley Pemberton MA 11/28/2024 4:58 PM Signed Pt had blood work done. View External Labs - Chemistry [ID [id number]] View External Labs - Miscellaneous Lab [ID [id number]] View External Labs - Chemistry [ID [id number]] JOSE ARMANDO Corrales William J, MD 11/29/2024 9:19 AM Signed Reviewed. Coming on . Await appt Allergies As of Date: 11/28/2024 Noted Allergy Reaction AMOXICILLIN 05/11/2005 Comments: generalized erythema Date Reviewed: 10/31/2024 Reviewed by: Miley Pemberton MA - Fully Assessed Reason for Visit: Results [95] Prescriptions as of 11/29/2024 - finasteride (PROSCAR) 5 mg tablet Take 1 tablet by mouth once daily. - dilTIAZem CD (CARDIZEM CD, CARTIA XT) 120 mg 24 hr capsule Take 1 capsule by mouth once daily. - flecainide (TAMBOCOR) 100 mg tablet Take 100 mg by mouth two times a day. - losartan (COZAAR) 25 mg tablet Take 1 tablet by mouth once daily. - spironolactone (ALDACTONE) 25 mg tablet Take 25 mg by mouth once daily. - isosorbide mononitrate ER (IMDUR) 30 mg 24 hr tablet Take 1 tablet by mouth every afternoon. Ordered by cardiology - Blood-Glucose Sensor (DEXCOM G7 SENSOR) sayra Apply new sensor every ten (10) days. - metFORMIN ER (GLUCOPHAGE XR) 500 mg 24 hr tablet Take 2 tablets by mouth two times a day before meals. - furosemide (LASIX) 40 mg tablet Take 1 tablet by mouth once daily. - atorvastatin (LIPITOR) 20 mg tablet Take 1 tablet by mouth once daily. Replaces simvastatin - OXYGEN, HOME THERAPY, 2 L/min by Nasal Cannula route continuous. - famotidine (PEPCID) 20 mg tablet Take 1 tablet by mouth two times a day. - OTC NUTRITIONAL SUPPLEMENT NUVOFLEX - TURMERIC ORAL Take by mouth. - tamsulosin (FLOMAX) 0.4 mg Take 1 capsule by mouth every 12 hours. - solifenacin 10 mg tablet Take 1 tablet by mouth every afternoon. - empagliflozin (JARDIANCE) 25 mg tablet Take 1 tablet by mouth once daily. Take 1 tablet once daily in the morning - cyanocobalamin (VITAMIN B-12) 1,000 mcg tab Take 1 tablet by mouth once daily. - carvedilol (COREG) 25 mg tablet Take 1 tablet by mouth two times a day. - ELIQUIS 5 mg tab(s) Take 1 tablet by mouth two times a day. - colestipol (COLESTID) 1 gram tablet Take 1 tablet by mouth once daily. - albuterol HFA (VENTOLIN HFA) 90 mcg/actuation inhaler Inhale 2 Puffs as instructed every 4 hours as needed. - insulin lispro (HUMALOG KWIKPEN INSULIN) 100 unit/mL Inject 20 Units subcutaneously three times a day before meals. Getting through [facility] - simvastatin (ZOCOR) 40 mg tablet Take 1 tablet by mouth daily at bedtime. - flecainide (TAMBOCOR) 150 mg tablet Take 1 tablet by mouth every 12 hours. Prescribed by outside envelope folder - insulin glargine (BASAGLAR KWIKPEN U-100 INSULIN) 100 unit/mL (3 mL) Inject 90 Units subcutaneously daily at bedtime. - aspirin 81 mg chewable tablet Take [...] of 08/20/2013: Problem List As Of Date 11/28/2024 Noted Resolved OTHER PSORIASIS [L40.8] 05/11/2005 Essential [...] 06/06/2023 Diagnosed: 06/06/2023 History of atrial fibrillation [ (more content not included)... Normal [facility] Calculated very low density lipoprotein (VLDL) cholesterol measurementOrdered By: Mathieu Virgen on 11-28-2024 Calculated very low density lipoprotein (VLDL) cholesterol measurement 22 mg/dL 5-40 [facility] VLDL Cholesterol 22 mg/dL 5-40 [facility] Carbon dioxide, total [Moles /volume] in Central venous bloodOrdered By: Mathieu Virgen on 11-28-2024 CO2 [Moles/Vol] 21.4 mmol/L 21.0-32.0 [facility] Chloride assayOrdered By: Shannon Virgen on 11-28-2024 Chloride [Moles/Vol] 101 mmol/L 98-108 [facility] Comprehensive Metabolic Prof ilon 11-28-2024 Albumin [Mass/Vol] 4.0 g/dL Normal 3.4-4.8 [facility] Comment on above: Order Comment: CBC Performed By: #### L 500.4050, L502.0250, L500.4100, L501.9985, L100.0500 ####[facility] [address] [place], [address] Albumin/Globulin [Mass ratio] 1.2 {ratio} Normal 0.9-2.4 [facility] Comment on above: Order Comment: CBC Performed By: #### L 500.4050, L502.0250, L500.4100, L501.9985, L100.0500 ####[facility] [address] [place], [address] ALK PHOS 110 U/L Normal 40-129 [facility] Comment on above: Order Comment: CBC Performed By: #### L 500.4050, L502.0250, L500.4100, L501.9985, L100.0500 ####[facility] [address] [place], [address] ALT [Catalytic activity/Vol] 15 U/L Normal <=46 [facility] Comment on above: Order Comment: CBC Performed By: #### L 500.4050, L502.0250, L500.4100, L501.9985, L100.0500 ####[facility] [address] [place], [address] AST [Catalytic activity/Vol] 19 U/L Normal <=37 [facility] Comment on above: Order Comment: CBC Performed By: #### L 500.4050, L502.0250, L500.4100, L501.9985, L100.0500 ####[facility] [address] [place], [address] Bilirubin [Mass/Vol] 0.49 mg/dL Normal 0.00-1.30 [facility] Comment on above: Order Comment: CBC Performed By: #### L 500.4050, L502.0250, L500.4100, L501.9985, L100.0500 ####[facility] [address] [place], [address] BUN/CRE 19.6 RATIO Normal 10-20 [facility] Comment on above: Order Comment: CBC Performed By: #### L 500.4050, L502.0250, L500.4100, L501.9985, L100.0500 ####[facility] [address] [place], [address] Calcium [Mass/Vol] 9.3 mg/dL Normal 7.6-11.0 [facility] Comment on above: Order Comment: CBC Performed By: #### L 500.4050, L502.0250, L500.4100, L501.9985, L100.0500 ####[facility] [address] [place], [address] Chloride [Moles/Vol] 101 mmol/L Normal 98-108 [facility] Comment on above: Order Comment: CBC Performed By: #### L 500.4050, L502.0250, L500.4100, L501.9985, L100.0500 ####[facility] [address] [place], [address] CO2 [Moles/Vol] 21.4 mmol/L Normal 21.0-32.0 [facility] Comment on above: Order Comment: CBC Performed By: #### L 500.4050, L502.0250, L500.4100, L501.9985, L100.0500 ####[facility] [address] [place], [address] Creatinine [Mass/Vol] 1.00 mg/dL Normal 0.70-1.20 [facility] Comment on above: Order Comment: CBC Performed By: #### L 500.4050, L502.0250, L500.4100, L501.9985, L100.0500 ####[facility] [address] [place], [address] GAP 13 Normal 5-15 [facility] Comment on above: Order Comment: CBC Performed By: #### L 500.4050, L502.0250, L500.4100, L501.9985, L100.0500 ####[facility] [address] [place], [address] GFR/1.73 sq M.predicted among non-blacks MDRD (S/P/Bld) [Vol rate/Area] 76 mL/min/{1.73_m2} Normal >60 [facility] Comment on above: Order Comment: CBC Result Comment: mL/m in/1.73m2 CKD-EPI Creatinine Equation (2020) Performed By: #### L 500.4050, L502.0250, L500.4100, L501.9985, L100.0500 ####[facility] [address] [place], [address] Globulin (S) [Mass/Vol] 3.3 g/dL Normal 2.2-4.2 [facility] Comment on above: Order Comment: CBC Performed By: #### L 500.4050, L502.0250, L500.4100, L501.9985, L100.0500 ####[facility] [address] [place], [address] Glucose [Mass/Vol] 121 mg/dL High 70-99 [facility] Comment on above: Order Comment: CBC Performed By: #### L 500.4050, L502.0250, L500.4100, L501.9985, L100.0500 ####[facility] [address] [place], [address] Potassium [Moles/Vol] 4.3 mmol/L Normal 3.3-5.1 [facility] Comment on above: Order Comment: CBC Performed By: #### L 500.4050, L502.0250, L500.4100, L501.9985, L100.0500 ####[facility] [address] [place], [address] Sodium [Moles/Vol] 136 mmol/L Normal 133-145 [facility] Comment on above: Order Comment: CBC Performed By: #### L 500.4050, L502.0250, L500.4100, L501.9985, L100.0500 ####[facility] [address] [place], [address] T PROT 7.3 g/dL Normal 5.9-8.4 [facility] Comment on above: Order Comment: CBC Performed By: #### L 500.4050, L502.0250, L500.4100, L501.9985, L100.0500 ####[facility] [address] [place], [address] Urea nitrogen [Mass/Vol] 20 mg/dL High 4-19 [facility] Comment on above: Order Comment: CBC Performed By: #### L 500.4050, L502.0250, L500.4100, L501.9985, L100.0500 ####[facility] [address] [place], [address] Creatinine Unsp time (U) [Ma ss/Vol]Ordered By: Mathieu Virgen on 11-28-2024 Creatinine (U) [Mass/Vol] 90.60 mg/dL 39-259 [facility] GFR/1.73 sq M.predicted ismael g non-blacks MDRD (S/P/Bld) [Vol rate/Area]Ordered By: Mathieu Virgen on 11-28-2024 Estimated GFR (MDRD) Non-Af Amer 76 >60 [facility] Comment on above: mL/min/1.73m2 CKD-EP I Creatinine Equation (2020) Glomerular filtration rate ( GFR) estimation/1.73 sq m using serum, plasma, or whole bOrdered By: Mathieu Virgen on 11-28-2024 GFR/1.73 sq M.predicted among non-blacks MDRD (S/P/Bld) [Vol rate/Area] 76 mL/min/{1.73_m2} >60 [facility] Comment on above: mL/min/1.73m2 CKD-EP I Creatinine Equation (2020) Hemoglobin A1con 11-28-2024 HbA1c (Bld) [Mass fraction] 7.0 % Normal <=5.6 [facility] Comment on above: Performed By: #### L 500.4050, L502.0250, L500.4100, L501.9985, L100.0500 ####[facility] [address] [place], [place], [address] Hemoglobin A1c percentageOrd ered By: Mathieu Virgen on 11-28-2024 HbA1c (Bld) [Mass fraction] 7.0 % >5.7 [facility] LDL calc ser/plasOrdered By: Mathieu Virgen on 11-28-2024 Cholesterol in LDL [Mass/Vol] 52 mg/dL [facility] Comment on above: Oetavpaetj=088-838 m g/dL & Higher Hlje=133 mg/dL or greater LDL Cholesterol, Calculated 52 mg/dL [facility] Comment on above: Ygorjklliy=210-249 m g/dL & Higher Pvqq=015 mg/dL or greater Laboratory - Chemistry and C hemistry - challengeOrdered By: Mathieu Virgen on 11-28-2024 AST [Catalytic activity/Vol] 19 U/L <38 [facility] Lipid Profileon 11-28-2024 CHOL:HDL 3.06 Normal [facility] Comment on above: Performed By: #### L 500.4050, L502.0250, L500.4100, L501.9985, L100.0500 ####[facility] [address] [place], [address] Cholesterol [Mass/Vol] 110 mg/dL Normal <=200 [facility] Comment on above: Result Comment: Chol esterol level, Desirable <200 mg/dLBorderline high cholesterol 200-239 mg/dLHigh cholesterol >=240 mg/dLRecommendations of the NCEP Adult Treatment Panel for thefollowing risk-cutoff thresholds for the [place] [facility]. Performed By: #### L 500.4050, L502.0250, L500.4100, L501.9985, L100.0500 ####[facility] [address] [place], [address] Cholesterol in HDL [Mass/Vol] 36 mg/dL Low [facility] Comment on above: Result Comment: [place] onal Cholesterol Education Program (NCEP) guidelines:<40 mg/dL: Low HDL-cholesterol (major risk factor for CHD)>= 60 mg/dL: High HDL-cholesterol (negative risk factor forCHD)HDL-cholesterol is affected by a number of factors, e.g.smoking, exercise, hormones, sex and age. Performed By: #### L 500.4050, L502.0250, L500.4100, L501.9985, L100.0500 ####[facility] [address] [place], [address] Cholesterol in LDL [Mass/Vol] 52 mg/dL Normal [facility] Comment on above: Result Comment: Bord wvtuhn=251-450 mg/dL Higher Tzac=915 mg/dL or greater Performed By: #### L 500.4050, L502.0250, L500.4100, L501.9985, L100.0500 ####[facility] [address] [place], [address] Cholesterol in VLDL [Mass/Vol] 22 mg/dL Normal 5-40 [facility] Comment on above: Performed By: #### L 500.4050, L502.0250, L500.4100, L501.9985, L100.0500 ####[facility] [address] [place], [address] Triglyceride [Mass/Vol] 108 mg/dL Normal [facility] Comment on above: Result Comment: The drugs N-Acetylcysteine and Metamizole may falselydepress this assay.Normal range: <150 mg/dLBorderline High: 150-199 mg/dLHigh: 200-499 mg/dLVery High: >500 mg/dL Performed By: #### L 500.4050, L502.0250, L500.4100, L501.9985, L100.0500 ####[facility] [address] [place], [address] Microalb:Creat Ratio,Random URon 11-28-2024 MALB:CREAT 187.6 mg/g CRE Normal [facility] Comment on above: Performed By: #### L 500.4050, L502.0250, L500.4100, L501.9985, L100.0500 ####[facility] [address] [place], [address] Creatinine [Mass/Vol] 90.60 mg/dL Normal 39-259 [facility] Comment on above: Performed By: #### L 500.4050, L502.0250, L500.4100, L501.9985, L100.0500 ####[facility] [address] [place], [address] MICROALBUMIN,UR 17.0 mg/L Normal NO RANGE EST. [facility] Comment on above: Performed By: #### L 500.4050, L502.0250, L500.4100, L501.9985, L100.0500 ####[facility] [address] [place], [address] Microalbumin/creat ratio urO rdered By: Mathieu Virgen on 11-28-2024 Urine Microalbumin/Creatinine Ratio 187.6 mg/g CRE [facility] Potassium (Unsp spec) [Mass/ Vol]Ordered By: Mathieu Virgen on 11-28-2024 Potassium [Moles/Vol] 4.3 mmol/L 3.3-5.1 [facility] Potassium measurement (mass/ volume)Ordered By: Mathieu Virgen on 11-28-2024 Potassium (Unsp spec) [Mass/Vol] 4.3 mmol/L 3.3-5.1 [facility] Random urine creatinine nahomy urement (mass/volume)Ordered By: Mathieu Virgen on 11-28-2024 Creatinine Unsp time (U) [Mass/Vol] 90.60 mg/dL 39-259 [facility] Screening total cholesterol/ high density lipoprotein (HDL) cholesterol ratioOrdered By: Mathieu Virgen on 11-28-2024 Cholesterol.total/Cholester ol in HDL [Mass ratio] 3.06 {ratio} [facility] Serum creatinine measurement (mass/volume)Ordered By: Mathieu Virgen on 11-28-2024 Creatinine [Mass/Vol] 1.00 mg/dL 0.70-1.20 [facility] Serum globulin measurementOr dered By: Mathieu Virgen on 11-28-2024 Globulin (S) [Mass/Vol] 3.3 g/dL 2.2-4.2 [facility] Serum glucose measurement (m ass/volume)Ordered By: Mathieu Virgen on 11-28-2024 Glucose [Mass/Vol] 121 mg/dL High 70-99 [facility] Serum or plasma alanine cottrell otransferase (ALT) measurementOrdered By: Mathieu Virgen on 11-28-2024 ALT [Catalytic activity/Vol] 15 U/L <47 [facility] Serum or plasma albumin nahomy urement (mass/volume)Ordered By: Mathieu Virgen on 11-28-2024 Albumin [Mass/Vol] 4.0 g/dL 3.4-4.8 [facility] Serum or plasma albumin/glob ulin mass ratioOrdered By: Mathieu Virgen on 11-28-2024 Albumin/Globulin [Mass ratio] 1.2 {ratio} 0.9-2.4 [facility] Serum or plasma alkaline ahsan sphatase measurementOrdered By: Mathieu Virgen on 11-28-2024 ALP [Catalytic activity/Vol] 110 U/L 40-129 [facility] Serum or plasma calcium nahomy urement (mass/volume)Ordered By: Mathieu Virgen on 11-28-2024 Calcium [Mass/Vol] 9.3 mg/dL 7.6-11.0 [facility] Serum or plasma cholesterol in HDL measurement (mass/volume)Ordered By: Mathieu Virgen on 11-28-2024 Cholesterol in HDL [Mass/Vol] 36 mg/dL Low >40 [facility] Comment on above: National Cholesterol Education Program (NCEP) guidelines:<40 mg/dL: Low HDL-cholesterol (major risk factor for CHD)>= 60 mg/dL: High HDL-cholesterol (negative risk factor for CHD)HDL-cholesterol is affected by a number of factors, e.g. smoking, exercise, hormones, sex and age. Serum or plasma cholesterol measurement (mass/volume)Ordered By: Mathieu Virgne on 11-28-2024 Cholesterol [Mass/Vol] 110 mg/dL <201 [facility] Comment on above: Cholesterol level, D esirable <200 mg/dLBorderline high cholesterol 200-239 mg/dLHigh cholesterol >=240 mg/dLRecommendations of the NCEP Adult Treatment Panel for the following risk-cutoff thresholds for the [place] population. Serum or plasma urea nitroge n measurement (mass/volume)Ordered By: Mathieu Virgen on 11-28-2024 Urea nitrogen [Mass/Vol] 20 mg/dL High 4-19 [facility] Sodium levelOrdered By: Keny Virgen on 03-14-2025 Sodium [Moles/Vol] 136 mmol/L 133-145 [facility] Total proteinOrdered By: Louis lambert Param on 11-28-2024 Protein [Mass/Vol] 7.3 g/dL 5.9-8.4 [facility] Triglycerides measurementOrd ered By: Mathieu Virgen on 11-28-2024 Triglyceride [Mass/Vol] 108 mg/dL <199 [facility] Comment on above: The drugs N-Acetylcy steine and Metamizole may falsely depress this assay. Normal range: <150 mg/dLBorderline High: 150-199 mg/dLHigh: 200-499 mg/dLVery High: >500 mg/dL Urine albumin measurement wi detection limit of 20 mg/L or less (mass/volume)Ordered By: Mathieu Virgen on 11-28-2024 Albumin DL <= 20 mg/L (U) [Mass/Vol] 17.0 mg/L NO RANGE EST. [facility] Anion gap in Serum or Plasma Ordered By: Mathieu Virgen on 11-27-2024 Anion gap [Moles/Vol] 17 mmol/L High 5-15 [facility] BUN/creatinine ratioOrdered By: Mathieu Virgen on 11-27-2024 Urea nitrogen/Creatinine [Mass ratio] 18.3 mg/mg - [facility] Basic Metabolic Profile (BMP )on 11-27-2024 BUN/CRE 18.3 RATIO Normal - [facility] Comment on above: Performed By: #### L 501.5200, L500.2500 ####[facility] [address] [place], [address] Calcium [Mass/Vol] 9.3 mg/dL Normal 7.6-11.0 [facility] Comment on above: Performed By: #### L 501.5200, L500.2500 ####[facility] [address] [place], [address] Chloride [Moles/Vol] 100 mmol/L Normal 98-108 [facility] Comment on above: Performed By: #### L 501.5200, L500.2500 ####[facility] [address] [place], [address] CO2 [Moles/Vol] 18.9 mmol/L Low 21.0-32.0 [facility] Comment on above: Performed By: #### L 501.5200, L500.2500 ####[facility] [address] [place], [address] Creatinine [Mass/Vol] 1.19 mg/dL Normal 0.70-1.20 [facility] Comment on above: Performed By: #### L 501.5200, L500.2500 ####[facility] [address] [place], [address] GAP 17 High 5-15 [facility] Comment on above: Performed By: #### L 501.5200, L500.2500 ####[facility] [address] [place], [address] GFR/1.73 sq M.predicted among non-blacks MDRD (S/P/Bld) [Vol rate/Area] 62 mL/min/{1.73_m2} Normal >60 [facility] Comment on above: Result Comment: mL/m in/1.73m2 CKD-EPI Creatinine Equation (2020) Performed By: #### L 501.5200, L500.2500 ####[facility] [address] [place], [address] Glucose [Mass/Vol] 142 mg/dL High 70-99 [facility] Comment on above: Performed By: #### L 501.5200, L500.2500 ####[facility] [address] [place], [address] Potassium [Moles/Vol] 5.0 mmol/L Normal 3.3-5.1 [facility] Comment on above: Result Comment: Hemo lysis present, Results??could be affected.?? Performed By: #### L 501.5200, L500.2500 ####[facility] [address] [place], [address] Sodium [Moles/Vol] 136 mmol/L Normal 133-145 [facility] Comment on above: Performed By: #### L 501.5200, L500.2500 ####[facility] [address] [place], [address] Urea nitrogen [Mass/Vol] 22 mg/dL High 4-19 [facility] Comment on above: Performed By: #### L 501.5200, L500.2500 ####[facility] [address] [place], [address] BUN Normal 4-19 [facility] Comment on above: Result Comment: NEED REORDERED DUE TO MEDITECH ISSUE. Performed By: #### L 501.5200, L500.2500, L100.0500 ####[facility] [address] [place], [address] BUN/CRE Normal 10-20 [facility] Comment on above: Result Comment: NEED REORDERED DUE TO MEDITECH ISSUE. Performed By: #### L 501.5200, L500.2500, L100.0500 ####[facility] [address] [place], [address] Calcium Normal 7.6-11.0 [facility] Comment on above: Result Comment: NEED REORDERED DUE TO MEDITECH ISSUE. Performed By: #### L 501.5200, L500.2500, L100.0500 ####[facility] [address] [place], [address] CL Normal 98-108 [facility] Comment on above: Result Comment: NEED REORDERED DUE TO MEDITECH ISSUE. Performed By: #### L 501.5200, L500.2500, L100.0500 ####[facility] [address] [place], [address] CO2 Normal 21.0-32.0 [facility] Comment on above: Result Comment: NEED REORDERED DUE TO MEDITECH ISSUE. Performed By: #### L 501.5200, L500.2500, L100.0500 ####[facility] [address] [place], [address] CREAT,SERUM Normal 0.70-1.20 [facility] Comment on above: Result Comment: NEED REORDERED DUE TO MEDITECH ISSUE. Performed By: #### L 501.5200, L500.2500, L100.0500 ####[facility] [address] [place], [address] eGFR Normal >60 [facility] Comment on above: Result Comment: NEED REORDERED DUE TO MEDITECH ISSUE. Performed By: #### L 501.5200, L500.2500, L100.0500 ####[facility] [address] [place], [address] GAP Normal 5-15 [facility] Comment on above: Result Comment: NEED REORDERED DUE TO MEDITECH ISSUE. Performed By: #### L 501.5200, L500.2500, L100.0500 ####[facility] [address] [place], [address] GLU Normal 70-99 [facility] Comment on above: Result Comment: NEED REORDERED DUE TO MEDITECH ISSUE. Performed By: #### L 501.5200, L500.2500, L100.0500 ####[facility] [address] [place], [address] Potassium Normal 3.3-5.1 [facility] Comment on above: Result Comment: NEED REORDERED DUE TO MEDITECH ISSUE. Performed By: #### L 501.5200, L500.2500, L100.0500 ####[facility] [address] [place], [address] Basic Metabolic Profile (BMP) Normal 133-145 [facility] Comment on above: Result Comment: NEED REORDERED DUE TO MEDITECH ISSUE. Performed By: #### L 501.5200, L500.2500, L100.0500 ####[facility] [address] [place], [address] CBC-Complete Blood Cnt No Di ffon 11-27-2024 Erythrocyte distribution width (RBC) [Ratio] 17.0 % High 11.6-14.6 [facility] Comment on above: Performed By: #### L 501.5200, L500.2500, L100.0500 ####[facility] [address] [place], [address] Hematocrit (Bld) [Volume fraction] 43.7 % Normal 40-54 [facility] Comment on above: Performed By: #### L 501.5200, L500.2500, L100.0500 ####[facility] [address] [place], [address] Hemoglobin (Bld) [Mass/Vol] 14.3 g/dL Normal 13.0-16. 5 [facility] Comment on above: Performed By: #### L 501.5200, L500.2500, L100.0500 ####[facility] [address] [place], [address] MCH (RBC) [Entitic mass] 26.3 pg Low 27.0-32.0 [facility] Comment on above: Performed By: #### L 501.5200, L500.2500, L100.0500 ####[facility] [address] [place], [address] MCHC (RBC) [Mass/Vol] 32.7 g/dL Normal 32-36 [facility] Comment on above: Performed By: #### L 501.5200, L500.2500, L100.0500 ####[facility] [address] [place], [address] MCV (RBC) [Entitic vol] 80.5 fL Normal 80-94 [facility] Comment on above: Performed By: #### L 501.5200, L500.2500, L100.0500 ####[facility] [address] [place], [address] Platelet mean volume (Bld) [Entitic vol] 10.6 fL Normal 6.2-12.0 [facility] Comment on above: Performed By: #### L 501.5200, L500.2500, L100.0500 ####[facility] [address] [place], [address] Platelets (Bld) [#/Vol] 272 10*3/uL Normal 150-450 [facility] Comment on above: Performed By: #### L 501.5200, L500.2500, L100.0500 ####[facility] [address] [place], [address] RBC (Bld) [#/Vol] 5.43 10*6/uL Normal 4.6-6.2 [facility] Comment on above: Performed By: #### L 501.5200, L500.2500, L100.0500 ####[facility] [address] [place], [address] RDW SD 49.5 fl High 35.1-43.9 [facility] Comment on above: Performed By: #### L 501.5200, L500.2500, L100.0500 ####[facility] [address] [place], [address] WBC (Bld) [#/Vol] 11.5 10*3/uL High 4.4-11.0 [facility] Comment on above: Performed By: #### L 501.5200, L500.2500, L100.0500 ####[facility] [address] [place], [address] CNPNon 11-27-2024 [facility] Telephone (FAMPWS) FAISAL ALARCON ([id number]) 1945 M Date Time Provider Department 11/27/24 MATHIEU VIRGEN [facility] During your visit today, we recorded the following information about you: Reanna Cloud 11/27/2024 9:56 AM Signed Patient and daughter are here for labs and Aung is stating that the patinet is due for an Urine Albumin:Creatinine Ration, A1C and LDL Cholesterol but those orders are not in the patient's chart. Patient/daughter want them done today while they are here. Please assist. Jaylene Awad LPN 11/27/2024 11:30 AM Signed Labs pending to review and file. Mathieu Virgen MD 11/27/2024 11:37 AM Signed ordered Jaylene Henley LPN 11/27/2024 11:40 AM Signed Left message for Farida that lab orders have been placed. 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 - dilTIAZem CD (CARDIZEM CD, CARTIA XT) 120 mg 24 hr capsule Take 1 capsule by mouth once daily. - flecainide (TAMBOCOR) 100 mg tablet Take 100 mg by mouth two times a day. - losartan (COZAAR) 25 mg tablet Take 1 tablet by mouth once daily. - spironolactone (ALDACTONE) 25 mg tablet Take 25 mg by mouth once daily. - isosorbide mononitrate ER (IMDUR) 30 mg 24 hr tablet Take 1 tablet by mouth every afternoon. Ordered by cardiology - Blood-Glucose Sensor ([employer] G7 SENSOR) sayra Apply new sensor every ten (10) days. - metFORMIN ER (GLUCOPHAGE XR) 500 mg 24 hr tablet Take 2 tablets by mouth two times a day before meals. - furosemide (LASIX) 40 mg tablet Take 1 tablet by mouth once daily. - atorvastatin (LIPITOR) 20 mg tablet Take 1 tablet by mouth once daily. Replaces simvastatin - OXYGEN, HOME THERAPY, 2 L/min by Nasal Cannula route continuous. - famotidine (PEPCID) 20 mg tablet Take 1 tablet by mouth two times a day. - OTC NUTRITIONAL SUPPLEMENT NUVOFLEX - TURMERIC ORAL Take by mouth. - tamsulosin (FLOMAX) 0.4 mg Take 1 capsule by mouth every 12 hours. - solifenacin 10 mg tablet Take 1 tablet by mouth every afternoon. - empagliflozin (JARDIANCE) 25 mg tablet Take 1 tablet by mouth once daily. Take 1 tablet once daily in the morning - cyanocobalamin (VITAMIN B-12) 1,000 mcg tab Take 1 tablet by mouth once daily. - carvedilol (COREG) 25 mg tablet Take 1 tablet by mouth two times a day. - ELIQUIS 5 mg tab(s) Take 1 tablet by mouth two times a day. - Blood-Glucose Meter,Continuous (FREESTYLE MARIELLE 3 READER) [facility] Use to check blood sugar at least four (4) times daily. Uses insulin - Blood-Glucose Sensor (FREESTYLE MARIELLE 3 PLUS SENSOR) sayra Apply new sensor every fifteen (15) days to upper arm. - colestipol (COLESTID) 1 gram tablet Take 1 tablet by mouth once daily. - albuterol HFA (VENTOLIN HFA) 90 mcg/actuation inhaler Inhale 2 Puffs as instructed every 4 hours as needed. - insulin lispro (HUMALOG KWIKPEN INSULIN) 100 unit/mL Inject 20 Units subcutaneously three times a day before meals. Getting through [facility] - simvastatin (ZOCOR) 40 mg tablet Take 1 tablet by mouth daily at bedtime. - flecainide (TAMBOCOR) 150 mg tablet Take 1 tablet by mouth every 12 hours. Prescribed by outside envelope folder - insulin glargine (BASAGLAR KWIKPEN U-100 INSULIN) 100 unit/mL (3 mL) Inject 90 Units subcutaneously daily at bedtime. - aspirin 81 mg chewable tablet Take [...] of 08/20/2013: Problem List As Of Date 11/27/2024 Noted Resolved OTHER PSORIASIS [L40.8] 05/11/2005 Essential hypertension [I10] (more content not included)... Normal [facility] Carbon dioxide, total [Moles /volume] in Central venous bloodOrdered By: Mathieu Virgen on 11-27-2024 CO2 [Moles/Vol] 18.9 mmol/L Low 21.0-32.0 [facility] Chloride assayOrdered By: Shannon Virgen on 11-27-2024 Chloride [Moles/Vol] 100 mmol/L 98-108 [facility] Erythrocyte distribution wid th ratioOrdered By: Mathieu Virgen on 11-27-2024 Erythrocyte distribution width (RBC) [Ratio] 17.0 % High 11.6-14.6 [facility] Erythrocyte distribution wid th standard deviationOrdered By: Mathieu Virgen on 11-27-2024 Erythrocyte distribution width (RBC) [Entitic vol] 49.5 fL High 35.1-43.9 [facility] Erythrocyte distribution width (RBC) [Ratio] 49.5 fl High 35.1-43.9 [facility] GFR/1.73 sq M.predicted ismael g non-blacks MDRD (S/P/Bld) [Vol rate/Area]Ordered By: Mathieu Virgen on 11-27-2024 Estimated GFR (MDRD) Non-Af Amer 62 >60 [facility] Comment on above: mL/min/1.73m2 CKD-EP I Creatinine Equation (2020) Glomerular filtration rate ( GFR) estimation/1.73 sq m using serum, plasma, or whole bOrdered By: Mathieu Virgen on 11-27-2024 GFR/1.73 sq M.predicted among non-blacks MDRD (S/P/Bld) [Vol rate/Area] 62 mL/min/{1.73_m2} >60 [facility] Comment on above: mL/min/1.73m2 CKD-EP I Creatinine Equation (2020) Hematocrit Auto (Bld) [Volum e fraction]Ordered By: Mathieu Virgen on 11-27-2024 Hematocrit (Bld) [Volume fraction] 43.7 % 40-54 [facility] Hemoglobin measurementOrdere d By: Mathieu Virgen on 11-27-2024 Hemoglobin (Bld) [Mass/Vol] 14.3 g/dL 13.0-16. 5 [facility] MCV (mean corpuscular volume ) determinationOrdered By: Mathieu Virgen on 11-27-2024 MCV (RBC) [Entitic vol] 80.5 fL 80-94 [facility] Magnesiumon 11-27-2024 Magnesium [Mass/Vol] 2.3 mg/dL High 1.5-2.2 [facility] Comment on above: Performed By: #### L 501.5200, L500.2500 ####[facility] [address] [place], [address] Magnesium [Mass/Vol] 2.3 mg/dL High 1.5-2.2 [facility] Comment on above: Order Comment: NEED REORDERED DUE TO MEDITECH ISSUE. Result Comment: NEED REORDERED DUE TO MEDITECH ISSUE. Performed By: #### L 501.5200, L500.2500, L100.0500 ####[facility] [address] [place], [address] Magnesium (Unsp spec) [Mass/ Vol]Ordered By: Mathieu Virgen on 11-27-2024 Magnesium [Mass/Vol] 2.3 mg/dL High 1.5-2.2 [facility] Magnesium measurement (mass/ volume)Ordered By: Mathieu Virgen on 11-27-2024 Magnesium (Unsp spec) [Mass/Vol] 2.3 mg/dL High 1.5-2.2 [facility] Mean corpuscular hemoglobin (MCH) determinationOrdered By: Mathieu Virgen on 11-27-2024 MCH (RBC) [Entitic mass] 26.3 pg Low 27.0-32.0 [facility] Mean corpuscular hemoglobin concentration (MCHC) determinationOrdered By: Mathieu Virgen on 11-27-2024 MCHC (RBC) [Mass/Vol] 32.7 g/dL 32-36 [facility] Mean platelet volume determi nationOrdered By: Mathieu Virgen on 11-27-2024 Platelet mean volume (Bld) [Entitic vol] 10.6 fL 6.2-12.0 [facility] Platelet countOrdered By: Shannon Virgen on 11-27-2024 Platelets (Bld) [#/Vol] 272 10*3/uL 150-450 [facility] Potassium (Unsp spec) [Mass/ Vol]Ordered By: Mathieu Virgen on 11-27-2024 Potassium [Moles/Vol] 5.0 mmol/L 3.3-5.1 [facility] Comment on above: Hemolysis present, R esults could be affected. Potassium measurement (mass/ volume)Ordered By: Mathieu Virgen on 11-27-2024 Potassium (Unsp spec) [Mass/Vol] 5.0 mmol/L 3.3-5.1 [facility] Comment on above: Hemolysis present, R esults could be affected. RBC Auto (Bld) [#/Vol]Ordere d By: Mathieu Virgen on 11-27-2024 RBC (Bld) [#/Vol] 5.43 10*6/uL 4.6-6.2 [facility] Serum creatinine measurement (mass/volume)Ordered By: Mathieu Virgen on 11-27-2024 Creatinine [Mass/Vol] 1.19 mg/dL 0.70-1.20 [facility] Serum glucose measurement (m ass/volume)Ordered By: Mathieu Virgen on 11-27-2024 Glucose [Mass/Vol] 142 mg/dL High 70-99 [facility] Serum or plasma calcium nahomy urement (mass/volume)Ordered By: Mathieu Virgen on 11-27-2024 Calcium [Mass/Vol] 9.3 mg/dL 7.6-11.0 [facility] Serum or plasma urea nitroge n measurement (mass/volume)Ordered By: Mathieu Virgen on 11-27-2024 Urea nitrogen [Mass/Vol] 22 mg/dL High 4-19 [facility] Sodium levelOrdered By: Keny Virgen on 11-27-2024 Sodium [Moles/Vol] 136 mmol/L 133-145 [facility] White blood cell (WBC) count Ordered By: Mathieu Virgen on 11-27-2024 WBC (Bld) [#/Vol] 11.5 10*3/uL High 4.4-11.0 [facility] CNPNon 11-26-2024 [facility] Telephone ([facility]) FAISAL ALARCON ([id number]) 1945 M Date Time Provider Department 11/26/24 MATHIEU VIRGEN During your visit today, we recorded the following information about you: Tierra Crawford, RN 11/26/2024 4:01 PM Signed patient daughter is calling in stating that Dr Daley left the office today without filling patients finasteride. daughter is requesting that pcp fill the medication for patient. please review and advise. if ok rx needs to sent to [facility] daughter needs called with information Mathieu Virgen MD 11/26/2024 5:08 PM Signed I am assuming he is taking it once a day. Rx sent Jaylene Henley LPN 11/26/2024 5:18 PM Signed Left detailed message on personalized [employer]. Allergies As of Date: 11/26/2024 Noted Allergy Reaction AMOXICILLIN 05/11/2005 Comments: generalized erythema Date Reviewed: 10/31/2024 Reviewed by: Miley Pemberton MA - Fully Assessed Reason for Visit: Medication Problem [65] Order(s):finasteride (PROSCAR) 5 mg tabletTake 1 tablet by mouth once daily.Disp: 90 tabletRfl: 3 Prescriptions as of 11/26/2024 - finasteride (PROSCAR) 5 mg tablet Take 1 tablet by mouth once daily. - dilTIAZem CD (CARDIZEM CD, CARTIA XT) 120 mg 24 hr capsule Take 1 capsule by mouth once daily. - flecainide (TAMBOCOR) 100 mg tablet Take 100 mg by mouth two times a day. - losartan (COZAAR) 25 mg tablet Take 1 tablet by mouth once daily. - spironolactone (ALDACTONE) 25 mg tablet Take 25 mg by mouth once daily. - isosorbide mononitrate ER (IMDUR) 30 mg 24 hr tablet Take 1 tablet by mouth every afternoon. Ordered by cardiology - Blood-Glucose Sensor ([employer] G7 SENSOR) sayra Apply new sensor every ten (10) days. - metFORMIN ER (GLUCOPHAGE XR) 500 mg 24 hr tablet Take 2 tablets by mouth two times a day before meals. - furosemide (LASIX) 40 mg tablet Take 1 tablet by mouth once daily. - atorvastatin (LIPITOR) 20 mg tablet Take 1 tablet by mouth once daily. Replaces simvastatin - OXYGEN, HOME THERAPY, 2 L/min by Nasal Cannula route continuous. - famotidine (PEPCID) 20 mg tablet Take 1 tablet by mouth two times a day. - OTC NUTRITIONAL SUPPLEMENT NUVOFLEX - TURMERIC ORAL Take by mouth. - tamsulosin (FLOMAX) 0.4 mg Take 1 capsule by mouth every 12 hours. - solifenacin 10 mg tablet Take 1 tablet by mouth every afternoon. - empagliflozin (JARDIANCE) 25 mg tablet Take 1 tablet by mouth once daily. Take 1 tablet once daily in the morning - cyanocobalamin (VITAMIN B-12) 1,000 mcg tab Take 1 tablet by mouth once daily. - carvedilol (COREG) 25 mg tablet Take 1 tablet by mouth two times a day. - ELIQUIS 5 mg tab(s) Take 1 tablet by mouth two times a day. - Blood-Glucose Meter,Continuous (FREESTYLE MARIELLE 3 READER) [facility] Use to check blood sugar at least four (4) times daily. Uses insulin - Blood-Glucose Sensor (FREESTYLE MARIELLE 3 PLUS SENSOR) sayra Apply new sensor every fifteen (15) days to upper arm. - colestipol (COLESTID) 1 gram tablet Take 1 tablet by mouth once daily. - albuterol HFA (VENTOLIN HFA) 90 mcg/actuation inhaler Inhale 2 Puffs as instructed every 4 hours as needed. - insulin lispro (HUMALOG KWIKPEN INSULIN) 100 unit/mL Inject 20 Units subcutaneously three times a day before meals. Getting through [facility] - simvastatin (ZOCOR) 40 mg tablet Take 1 tablet by mouth daily at bedtime. - flecainide (TAMBOCOR) 150 mg tablet Take 1 tablet by mouth every 12 hours. Prescribed by outside envelope folder - insulin glargine (BASAGLAR KWIKPEN U-100 INSULIN) 100 unit/mL (3 mL) Inject 90 Units subcutaneously daily at bedtime. 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 Normal [facility] FAISAL ALARCON ([id number]) 1945 M Date Time Provider Department 11/24/24 MATHIEU VIRGEN [facility] During your visit today, we recorded the following information about you: Nisha Wilson 11/24/2024 9:35 AM Signed Patient's daughter calling asking for an medication: dilTIAZem CD (CARDIZEM CD, CARTIA XT) 120 mg 24 hr capsule () Patient last seen 10/31/23 Future visit scheduled: yes PHARMACY: [facility]. Janet King MA 11/24/2024 10:17 AM Signed Next visit 12/02/24 Allergies As of Date: 11/24/2024 Noted Allergy Reaction AMOXICILLIN 05/11/2005 Comments: generalized erythema Date Reviewed: 10/31/2024 Reviewed by: Miley Pemberton MA - Fully Assessed Reason for Visit: requesting medication that is [Other] Order(s):dilTIAZem CD (CARDIZEM CD, CARTIA XT) 120 mg 24 hr capsuleTake 1 capsule by mouth once daily.Disp: 90 capsuleRfl: 3 Prescriptions as of 11/24/2024 - dilTIAZem CD (CARDIZEM CD, CARTIA XT) 120 mg 24 hr capsule Take 1 capsule by mouth once daily. - flecainide (TAMBOCOR) 100 mg tablet Take 100 mg by mouth two times a day. - losartan (COZAAR) 25 mg tablet Take 1 tablet by mouth once daily. - spironolactone (ALDACTONE) 25 mg tablet Take 25 mg by mouth once daily. - isosorbide mononitrate ER (IMDUR) 30 mg 24 hr tablet Take 1 tablet by mouth every afternoon. Ordered by cardiology - Blood-Glucose Sensor ([employer] G7 SENSOR) sayra Apply new sensor every ten (10) days. - metFORMIN ER (GLUCOPHAGE XR) 500 mg 24 hr tablet Take 2 tablets by mouth two times a day before meals. - furosemide (LASIX) 40 mg tablet Take 1 tablet by mouth once daily. - atorvastatin (LIPITOR) 20 mg tablet Take 1 tablet by mouth once daily. Replaces simvastatin - OXYGEN, HOME THERAPY, 2 L/min by Nasal Cannula route continuous. - famotidine (PEPCID) 20 mg tablet Take 1 tablet by mouth two times a day. - OTC NUTRITIONAL SUPPLEMENT NUVOFLEX - TURMERIC ORAL Take by mouth. - tamsulosin (FLOMAX) 0.4 mg Take 1 capsule by mouth every 12 hours. - solifenacin 10 mg tablet Take 1 tablet by mouth every afternoon. - empagliflozin (JARDIANCE) 25 mg tablet Take 1 tablet by mouth once daily. Take 1 tablet once daily in the morning - cyanocobalamin (VITAMIN B-12) 1,000 mcg tab Take 1 tablet by mouth once daily. - carvedilol (COREG) 25 mg tablet Take 1 tablet by mouth two times a day. - ELIQUIS 5 mg tab(s) Take 1 tablet by mouth two times a day. - Blood-Glucose Meter,Continuous (FREESTYLE MARIELLE 3 READER) [facility] Use to check blood sugar at least four (4) times daily. Uses insulin - Blood-Glucose Sensor (FREESTYLE MARIELLE 3 PLUS SENSOR) sayra Apply new sensor every fifteen (15) days to upper arm. - colestipol (COLESTID) 1 gram tablet Take 1 tablet by mouth once daily. - albuterol HFA (VENTOLIN HFA) 90 mcg/actuation inhaler Inhale 2 Puffs as instructed every 4 hours as needed. - insulin lispro (HUMALOG KWIKPEN INSULIN) 100 unit/mL Inject 20 Units subcutaneously three times a day before meals. Getting through [facility] - simvastatin (ZOCOR) 40 mg tablet Take 1 tablet by mouth daily at bedtime. - flecainide (TAMBOCOR) 150 mg tablet Take 1 tablet by mouth every 12 hours. Prescribed by outside envelope folder - insulin glargine (BASAGLAR KWIKPEN U-100 INSULIN) [...] of 08/20/2013: Problem List As Of Date 11/24/2024 Noted Resolved OTHER PSORIASIS [L40.8] 05/11/2005 Essential [...] [E66.812] 01/31/2021 SOB (shortness of breath) [R06.02] (more content not included)... Normal [facility] 11-12-2024 [facility] FAISAL ALARCON ([id number]) 1945 M Date Time Provider Department 11/12/24 [facility] During your visit today, we recorded the following information about you: Tammy Davies LPN 11/12/2024 3:26 PM Signed Rem from [facility] pharmacist calling patient daughter told her that her father is taking Aspirin 81 mg daily and he is also taking Eliquis 5 mg one tablet twice daily, he is also taking tumeric 500 mg 2 capsules daily, Nuvoflex daily, a joint supplement she is not familiar with. She is concerned since he has lots of medications and lots of providers he is seeing, not sure providers know all the medications he is taking? Patient insurance is making her talk to nurse in PCP office at length about this, having possible medication interactions causing QT elongation and risk of AV block with taking the Solifenacin 10 mg daily and a few others. She is concerned patient daughter is not keeping providers up to date with mediation changes, his Basaglar insulin dose is 50 mg and his Humalog insulin dose is 26 units 3 times daily, Colestipol 1 gram patient is taking as needed but is daughter keeping away from when he is taking other medications. Taking Flecainide 100 mg one tablet twice daily, started on Spironolactone 25 mg once daily, taken off the Potassium, Furosemide dropped to 40 mg once daily, Losartan 25 mg daily. She said his daughter is not checking his blood pressure readings and his blood sugars and getting his lab work done more frequently to monitor his kidneys. She is hoping patient may get more monitoring done with his medications. She plans to call office back tomorrow to see what PCP says with all of this. Please advise Mathieu Virgen MD 11/12/2024 3:38 PM Signed Looks like we were updated on all but the most recent med changes. He has been following aggressively with his labs etc. Most of his med changes are due to his recent cardiac changes and per cardiology. As far as his solifenacin. I do not prescribe that. That should be addressed with the writing provider. I would recommend he stop tumeric and nuvoflex. He literally was just seen by one of our providers who went over everything in the last two weeks See if we can get him into see me in a few weeks Lulu Walls MA 11/12/2024 4:50 PM Signed Has an appointment 12/19/24. Is that out too far? Mathieu Virgen MD 11/12/2024 4:52 PM Signed See if we can get him in sooner. Lulu Walls MA 11/13/2024 2:47 PM Signed Message left for daughter Farida to call back to schedule sooner appointment. JOSE ARMANDO Ramírez Lisa, MA 11/24/2024 10:44 AM Signed Scheduled 12/02/24 Allergies As of Date: 11/12/2024 Noted Allergy Reaction AMOXICILLIN 05/11/2005 Comments: generalized erythema Date Reviewed: 10/31/2024 Reviewed by: Miley Pemberton MA - Fully Assessed Reason for Visit: Medication Question [1478] Visit Diagnosis:Essential hypertension [I10] Order(s):losartan (COZAAR) 25 mg tabletTake 1 tablet by mouth once daily.Disp: 90 tabletRfl: 3 Prescriptions as of 11/24/2024 - dilTIAZem CD (CARDIZEM CD, CARTIA XT) 120 mg 24 hr capsule Take 1 capsule by mouth once daily. - flecainide (TAMBOCOR) 100 mg tablet Take 100 mg by mouth two times a day. - losartan (COZAAR) 25 mg tablet Take 1 tablet by mouth once daily. - spironolactone (ALDACTONE) 25 mg tablet Take 25 mg by mouth once daily. - isosorbide mononitrate ER (IMDUR) 30 mg 24 hr tablet Take 1 tablet by mouth every afternoon. Ordered by cardiology - Blood-Glucose Sensor (MobiVitaCOM G7 SENSOR) sayra Apply new sensor every ten (10) days. - metFORMIN ER (GLUCOPHAGE XR) 500 mg 24 hr tablet Take 2 tablets by mouth two times a day before meals. - furosemide (LASIX) 40 mg tablet Take 1 tablet by mouth once daily. - atorvastatin (LIPITOR) 20 mg tablet Take 1 tablet by mouth once daily. Replaces simvastatin - OXYGEN, HOME THERAPY, 2 L/min by Nasal Cannula route continuous. - famotidine (PEPCID) 20 mg tablet Take 1 tablet by mouth two times a day. - OTC NUTRITIONAL SUPPLEMENT NUVOFLEX - TURMERIC ORAL Take by mouth. - tamsulosin (FLOMAX) 0.4 mg Take 1 capsule by mouth every 12 hours. - solifenacin 10 mg tablet Take 1 tablet by mouth every afternoon. - empagliflozin (JARDIANCE) 25 mg tablet Take 1 tablet by mouth once daily. Take 1 tablet once daily in the morning - cyanocobalamin (VITAMIN B-12) 1,000 mcg tab Take 1 tablet by mouth once daily. - carvedilol (COREG) 25 mg tablet Take 1 tablet by mouth two times a day. - ELIQUIS 5 mg tab(s) Take 1 tablet by mouth two times a day. - Blood-Glucose Meter,Continuous (FREESTYLE MARIELLE 3 READER) [facility] Use to check blood sugar at least four (4) times daily. Uses insulin - Blood-Glucose Sensor (FREESTYLE MARIELLE 3 PLUS SENSOR) sayra Apply new sensor every fifteen (15 (more content not included)... Normal [facility] Bedside Glucoseon 11-03-2024 FINGERSTICK GLU 132 mg/dL High 74-106 [facility] Comment on above: Result Comment: URSULA GEMENT OF PATIENT CARE PER NURSING PROTOCOL Performed By: #### L 501.080 ####[facility] [address] [place], [address] FINGERSTICK GLU 108 mg/dL High 74-106 [facility] Comment on above: Result Comment: URSULA GEMENT OF PATIENT CARE PER NURSING PROTOCOL Performed By: #### L 501.080 ####[facility] [address] [place], [address] FINGERSTICK GLU 55 mg/dL Low 74-106 [facility] Comment on above: Result Comment: URSULA GEMENT OF PATIENT CARE PER NURSING PROTOCOL Performed By: #### L 501.080 ####[facility] [address] [place], [place], [address] Emergency Department Summary on 11-03-2024 Emergency Department Summary Normal [facility] Glucose measurement at [facility] deOrdered By: Qasim Senior on 11-03-2024 [facility] 132 mg/dL High 74-106 [facility] Comment on above: MANAGEMENT OF PATIEN T CARE PER NURSING PROTOCOL Glucose [Mass/Vol] 132 mg/dL High 74-106 [facility] Comment on above: MANAGEMENT OF PATIEN T CARE PER NURSING PROTOCOL CNOVon 10-31-2024 CNOV Office Visit (EIDSWS ) FAISAL ALARCON ([id number]) 1945 M Date Time Provider Department 10/31/24 3:00 PM KNOBLE, SUKH FAMPWS During your visit today, we recorded the following information about you: Pulse Respiration Blood pressure Weight 78/minute 18/minute 114/68 124.3 kg Sukh Hall APRN.RN ORTHOPAEDIC 10/31/2024 3:16 PM Signed Chief Complaint Patient presents with: F/U 3 Month HPI Faisal Alarcon is a 79 year old male who presents here today for Above Complaints.. Patient presents for routine follow up. Patient has been having ongoing dizziness for months. Has been to the ER multiple times and last saw [facility] 09/23/2024. Patient is currently on losartan, spironolactone, isosorbide, furosemide, carvedilol. Patient reports he is currently on 1.5L fluid restriction. Reports if he sticks to his fluid restriction he is dizzy if he increases fluid intake the dizziness goes away. Past medical history, appointments, medications, allergies reviewed. [...] on File Prior to Visit Medication Sig isosorbide mononitrate ER (IMDUR) 30 mg 24 hr tablet Take 1 tablet by mouth every afternoon. Ordered by cardiology Blood-Glucose Sensor (DEXCOM G7 SENSOR) sayra Apply new sensor every ten (10) days. metFORMIN ER (GLUCOPHAGE XR) 500 mg 24 hr tablet Take 2 tablets by mouth two times a day before meals. furosemide (LASIX) 40 mg tablet Take 1 tablet by mouth once daily. atorvastatin (LIPITOR) 20 mg tablet Take 1 tablet by mouth once daily. Replaces simvastatin OXYGEN, HOME THERAPY, 2 L/min by Nasal Cannula route continuous. famotidine (PEPCID) 20 mg tablet Take 1 tablet by mouth two times a day. OTC NUTRITIONAL SUPPLEMENT NUVOFLEX TURMERIC ORAL Take by mouth. tamsulosin (FLOMAX) 0.4 mg Take 1 capsule by mouth every 12 hours. solifenacin 10 mg tablet Take 1 tablet by mouth every afternoon. empagliflozin (JARDIANCE) 25 mg tablet Take 1 tablet by mouth once daily. Take 1 tablet once daily in the morning losartan (COZAAR) 100 mg tablet Take 1 tablet by mouth once daily. cyanocobalamin (VITAMIN B-12) 1,000 mcg tab Take 1 tablet by mouth once daily. carvedilol (COREG) 25 mg tablet Take 1 tablet by mouth two times a day. ELIQUIS 5 mg tab(s) Take 1 tablet by mouth two times a day. Blood-Glucose Meter,Continuous (FREESTYLE MARIELLE 3 READER) [facility] Use to check blood sugar at least four (4) times daily. Uses insulin Blood-Glucose Sensor (FREESTYLE MARIELLE 3 PLUS SENSOR) sayra Apply new sensor every fifteen (15) days to upper arm. colestipol (COLESTID) 1 gram tablet Take 1 tablet by mouth once daily. albuterol HFA (VENTOLIN HFA) 90 mcg/actuation inhaler Inhale 2 Puffs as instructed every 4 hours as needed. insulin lispro (HUMALOG KWIKPEN INSULIN) 100 unit/mL Inject 20 Units subcutaneously three times a day before meals. Getting through [facility] dilTIAZem CD (CARDIZEM CD, CARTIA XT) 120 mg 24 hr capsule Take 1 capsule by mouth once daily. simvastatin (ZOCOR) 40 [...] SOFTCLIX LANCETS) lancets Test blood sugar(s) 1 safia (more content not included)... Normal [facility] FAIS[facility] ([id number]) 1945 Date Time Provider Department 10/31/24 MTAHIEU VIRGEN [facility] During your visit today, we recorded the following information about you: Jackelin Tinajero, NILDA 10/31/2024 2:42 PM Signed Call placed to patient and spoke to daughter (Nisha). Nisha reports that patient has on-going dizziness/light-headed ness and has been to the ER multiple times for syncopal episodes. Patient was seen 09/23/2024 for ER follow up for CP and dizziness. Nisha reports that symptoms are not any worse just not improving. Patient is on fluid restrictions to 3 1/2 bottles of water daily and she thinks some of the problem is that he is dehydrated because he will often have dry lips and if he drinks then he feels better. Dizziness occurs most frequently in the am upon wakening. Nisha believes that to be related to low oxygen levels at night as he is waiting for a new C-pap machine from [facility]. (Nisha is calling them to ask about the machine as she is aware that we are not able to do anything about that). Patient wants to discuss the fluid restriction. Nisha aware that if he is dehydrated and needs fluids he should go to the ER but she said he is not to that point. Appointment remains. Jackelin Tinajero RN Allergies As of Date: 10/31/2024 Noted Allergy Reaction AMOXICILLIN 05/11/2005 Comments: generalized erythema Date Reviewed: 10/31/2024 Reviewed by: Miley Pemberton MA - Fully Assessed Reason for Visit: Appointment [186] Prescriptions as of 10/31/2024 - spironolactone (ALDACTONE) 25 mg tablet Take 25 mg by mouth once daily. - isosorbide mononitrate ER (IMDUR) 30 mg 24 hr tablet Take 1 tablet by mouth every afternoon. Ordered by cardiology - Blood-Glucose Sensor (MobiVitaCOM G7 SENSOR) sayra Apply new sensor every ten (10) days. - metFORMIN ER (GLUCOPHAGE XR) 500 mg 24 hr tablet Take 2 tablets by mouth two times a day before meals. - furosemide (LASIX) 40 mg tablet Take 1 tablet by mouth once daily. - atorvastatin (LIPITOR) 20 mg tablet Take 1 tablet by mouth once daily. Replaces simvastatin - OXYGEN, HOME THERAPY, 2 L/min by Nasal Cannula route continuous. - famotidine (PEPCID) 20 mg tablet Take 1 tablet by mouth two times a day. - OTC NUTRITIONAL SUPPLEMENT NUVOFLEX - TURMERIC ORAL Take by mouth. - tamsulosin (FLOMAX) 0.4 mg Take 1 capsule by mouth every 12 hours. - solifenacin 10 mg tablet Take 1 tablet by mouth every afternoon. - empagliflozin (JARDIANCE) 25 mg tablet Take 1 tablet by mouth once daily. Take 1 tablet once daily in the morning - losartan (COZAAR) 100 mg tablet Take 1 tablet by mouth once daily. - cyanocobalamin (VITAMIN B-12) 1,000 mcg tab Take 1 tablet by mouth once daily. - carvedilol (COREG) 25 mg tablet Take 1 tablet by mouth two times a day. - ELIQUIS 5 mg tab(s) Take 1 tablet by mouth two times a day. - Blood-Glucose Meter,Continuous (FREESTYLE MARIELLE 3 READER) [facility] Use to check blood sugar at least four (4) times daily. Uses insulin - Blood-Glucose Sensor (FREESTYLE MARIELLE 3 PLUS SENSOR) sayra Apply new sensor every fifteen (15) days to upper arm. - colestipol (COLESTID) 1 gram tablet Take 1 tablet by mouth once daily. - albuterol HFA (VENTOLIN HFA) 90 mcg/actuation inhaler Inhale 2 Puffs as instructed every 4 hours as needed. - insulin lispro (HUMALOG KWIKPEN INSULIN) 100 unit/mL Inject 20 Units subcutaneously three times a day before meals. Getting through [facility] - dilTIAZem CD (CARDIZEM CD, CARTIA XT) 120 mg 24 hr capsule Take 1 capsule by mouth once daily. - simvastatin (ZOCOR) 40 mg tablet Take 1 tablet by mouth daily at bedtime. - flecainide (TAMBOCOR) 150 mg tablet Take 1 tablet by mouth every 12 hours. Prescribed by outside envelope folder - insulin glargine (BASAGLAR KWIKPEN U-100 INSULIN) [...] of 08/20/2013: Problem List As Of Date 10/31/2024 Noted Resolved OTHER PSORIASIS [L40.8] 05/11/2005 Essential hypertension [I10] 05/11/2005 Morbid obesity (HCC) [E66.01] 05/11/2005 06/06/2023 Paranoid schizophrenia, subchronic condition wi*05/11/2005 04/23/2017 Type 2 diabetes mellitus with microalbuminuria *04/18 (more content not included)... [facility] (FAMPWS) FAISAL ALARCON ([id number]) 1945 M Date Time Provider Department 10/16/24 MATHIEU VIRGEN During your visit today, we recorded the following information about you: Osvaldo Regalado, RN 10/16/2024 10:34 AM Signed Daughter Farida reports patient had 3 Dexcom G 7 sensors that malfunctioned. They notified the company, but it takes 5-7 days to receive new one. Asking if pcp has samples of these sensors or knows how they can get one. Please phone Farida with reply: [phone] Mathieu Virgen MD 10/16/2024 10:35 AM Signed Do we have anything like that available? Might need to buy one if not Lulu Walls MA 10/16/2024 11:55 AM Signed We do not have samples. Spoke with daughter Farida and informed her of this. She is requesting a Rx for the Dexcom sensors (G7) to the [facility] in [place] while waiting for the [employer] to ship more. Patient has finger stick meter at home but daughter states this is not super convenient for them to check this way. 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 - metFORMIN ER (GLUCOPHAGE XR) 500 mg 24 hr tablet Take 2 tablets by mouth two times a day before meals. - furosemide (LASIX) 40 mg tablet Take 1 tablet by mouth once daily. - atorvastatin (LIPITOR) 20 mg tablet Take 1 tablet by mouth once daily. Replaces simvastatin - OXYGEN, HOME THERAPY, 2 L/min by Nasal Cannula route continuous. - famotidine (PEPCID) 20 mg tablet Take 1 tablet by mouth two times a day. - OTC NUTRITIONAL SUPPLEMENT NUVOFLEX - TURMERIC ORAL Take by mouth. - tamsulosin (FLOMAX) 0.4 mg Take 1 capsule by mouth every 12 hours. - solifenacin 10 mg tablet Take 1 tablet by mouth every afternoon. - empagliflozin (JARDIANCE) 25 mg tablet Take 1 tablet by mouth once daily. Take 1 tablet once daily in the morning - losartan (COZAAR) 100 mg tablet Take 1 tablet by mouth once daily. - cyanocobalamin (VITAMIN B-12) 1,000 mcg tab Take 1 tablet by mouth once daily. - carvedilol (COREG) 25 mg tablet Take 1 tablet by mouth two times a day. - ELIQUIS 5 mg tab(s) Take 1 tablet by mouth two times a day. - Blood-Glucose Meter,Continuous (FREESTYLE MARIELLE 3 READER) [facility] Use to check blood sugar at least four (4) times daily. Uses insulin - Blood-Glucose Sensor (FREESTYLE MARIELLE 3 PLUS SENSOR) sayra Apply new sensor every fifteen (15) days to upper arm. - colestipol (COLESTID) 1 gram tablet Take 1 tablet by mouth once daily. - albuterol HFA (VENTOLIN HFA) 90 mcg/actuation inhaler Inhale 2 Puffs as instructed every 4 hours as needed. - insulin lispro (HUMALOG KWIKPEN INSULIN) 100 unit/mL Inject 20 Units subcutaneously three times a day before meals. Getting through [facility] - dilTIAZem CD (CARDIZEM CD, CARTIA XT) 120 mg 24 hr capsule Take 1 capsule by mouth once daily. - simvastatin (ZOCOR) 40 mg tablet Take 1 tablet by mouth daily at bedtime. - flecainide (TAMBOCOR) 150 mg tablet Take 1 tablet by mouth every 12 hours. Prescribed by outside envelope folder - insulin glargine (BASAGLAR KWIKPEN U-100 INSULIN) [...] of 08/20/2013: Problem List As Of Date 10/16/2024 Noted Resolved OTHER PSORIASIS [L40.8] 05/11/2005 Essential [...] Low HDL (under 40) [E78.6] 06/09/2011 06/06/2023 Tu (more content not included)... Normal [facility] Basic Metabolic Profile (BMP )on 10-07-2024 BUN/CRE 26.7 RATIO High 07-06 [facility] Comment on above: Performed By: #### L 500.2500 ####[facility] [address] [place], [address] CA,Total 9.6 mg/dL Normal 8.5-10.1 [facility] Comment on above: Performed By: #### L 500.2500 ####[facility] [address] [place], [address] Chloride [Moles/Vol] 104 mmol/L Normal 98-107 [facility] Comment on above: Performed By: #### L 500.2500 ####[facility] [address] [place], [address] CO2 [Moles/Vol] 26.0 mmol/L Normal 21.0-32.0 [facility] Comment on above: Performed By: #### L 500.2500 ####[facility] [address] [place], [address] Creatinine [Mass/Vol] 1.20 mg/dL Normal 0.70-1.30 [facility] Comment on above: Result Comment: The validity of the calculated GFR GFRAA in patients over70 years has not been determined. Clinical correlation isessential. Performed By: #### L 500.2500 ####[facility] [address] [place], [address] EST GFR - AA 75 mL/min Normal >60 [facility] Comment on above: Result Comment: Afri can Malagasy GFR Calc Performed By: #### L 500.2500 ####[facility] [address] [place], [address] GAP 6 Normal 5-15 [facility] Comment on above: Performed By: #### L 500.2500 ####[facility] [address] [place], [address] GFR/1.73 sq M.predicted among non-blacks MDRD (S/P/Bld) [Vol rate/Area] 62 mL/min/{1.73_m2} Normal >60 [facility] Comment on above: Result Comment: Non- GFR Calc Performed By: #### L 500.2500 ####[facility] [address] [place], [address] Glucose [Mass/Vol] 142 mg/dL High 74-106 [facility] Comment on above: Result Comment: Fast ing Glucose result greater than or equal to 126 mg/dLsuggests DIABETES MELLITUS per A.D.A. criteria. Performed By: #### L 500.2500 ####[facility] [address] [place], [address] Potassium [Moles/Vol] 4.3 mmol/L Normal 3.5-5.1 [facility] Comment on above: Performed By: #### L 500.2500 ####[facility] [address] [place], [address] Sodium [Moles/Vol] 136 mmol/L Normal 136-145 [facility] Comment on above: Performed By: #### L 500.2500 ####[facility] [address] [place], [address] Urea nitrogen [Mass/Vol] 32 mg/dL High 7-18 [facility] Comment on above: Performed By: #### L 500.2500 ####[facility] [address] [place], [address] Blood urea nitrogen (BUN)/cr eatinine ratioOrdered By: Tierra Gilbert on 10-07-2024 Urea nitrogen/Creatinine [Mass ratio] 26.7 mg/mg High 10-20 [facility] Carbon dioxide measurementOr dered By: Tierra Gilbert on 10-07-2024 CO2 [Moles/Vol] 26.0 mmol/L 21.0-32.0 [facility] Chloride measurementOrdered By: Tierra Gilbert on 10-07-2024 Chloride [Moles/Vol] 104 mmol/L 98-107 [facility] Estimated glomerular filtrat ion rate (GFR) AmericanOrdered By: Tierra Gilbert on 10-07-2024 Estimated GFR (MDRD) Amer 75 mL/min >60 [facility] Comment on above: GFR Calc Glomerular filtration rate ( GFR) estimationOrdered By: Tierra Gilbert on 10-07-2024 Estimated GFR (MDRD) Non-Af Amer 62 mL/min >60 [facility] Comment on above: Non- GFR Calc GFR/1.73 sq M.predicted among non-blacks MDRD (S/P/Bld) [Vol rate/Area] 62 mL/min/{1.73_m2} >60 [facility] Comment on above: Non- GFR Calc Glucose measurementOrdered B y: Tierra Gilbert on 10-07-2024 Glucose [Mass/Vol] 142 mg/dL High 74-106 [facility] Comment on above: Fasting Glucose resu lt greater than or equal to 126 mg/dL suggests DIABETES MELLITUS per A.D.A. criteria. Potassium measurementOrdered By: Tierra Gilbert on 10-07-2024 Potassium [Moles/Vol] 4.3 mmol/L 3.5-5.1 [facility] Serum anion gap measurementO rdered By: Tierra Gilbert on 10-07-2024 Anion gap [Moles/Vol] 6 mmol/L 5-15 [facility] Serum or plasma calcium nahomy urement (mass/volume)Ordered By: Tierra Gilbert on 10-07-2024 Calcium [Mass/Vol] 9.6 mg/dL 8.5-10.1 [facility] Serum or plasma creatinine m easurement (mass/volume)Ordered By: Tierra Gilbert on 10-07-2024 Creatinine [Mass/Vol] 1.20 mg/dL 0.70-1.30 [facility] Comment on above: The validity of the calculated GFR & GFRAA in patients over 70 years has not been determined. Clinical correlation is essential. Serum or plasma urea nitroge n measurement (mass/volume)Ordered By: Tierra Gilbert on 10-07-2024 Urea nitrogen [Mass/Vol] 32 mg/dL High 7-18 [facility] Sodium levelOrdered By: Misbah Gilbert on 10-07-2024 Sodium [Moles/Vol] 136 mmol/L 136-145 [facility]20[facility] ([id number]) 1945 M Date Time Provider Department 09/23/24 2:40 PM DENISHA SHEPARD During your visit today, we recorded the following information about you: Pulse Respiration Blood pressure Weight 79/minute 16/minute 118/68 127.9 kg Denisha Shepard APRN.RN ORTHOPAEDIC 09/23/2024 6:18 PM Signed This is a 79 year old male who presents today with: Patient presents with: ER F/U: [facility] ER 09/20/24 dx:CP HISTORY OF PRESENT ILLNESS: Faisal Alarcon is a 79 year old male. Patient presents with: ER F/U: [facility] ER 09/20/24 dx:CP Patient presents today for emergency room follow-up. He went to the emergency room on 09/20/2024 with complaints of chest discomfort. He had been given nitroglycerin by EMS that did improve his pain. He had negative cardiac enzymes and stable lab work. There was no STEMI. The emergency room did consult patient's envelope folder, and it was recommended to start patient on Imdur. He was to follow-up with cardiology. Since he was in the emergency room they have been noticing some more lightheadedness/dizzin ess. Patient reports his mostly associated with position changes and when he gets up in the morning. They did reach out to cardiology and they have patient holding his losartan. Patient denies any further episodes of chest pain since his ER visit. They did hold his losartan and his dizziness has been improved today. PAST MEDICAL HISTORY: PAST MEDICAL HISTORY Diagnosis Date DIABETES MELLITUS TYPE II UNCONTR UNCOMPL 05/11/2005 Diverticulosis of colon (without mention of hemorrhage) HYPERTENSION NOS 05/11/2005 Low HDL (under 40) 06/09/2011 OBESITY NOS 05/11/2005 Other psoriasis 05/11/2005 PARAN SCHIZO-SUBCHR/EXAC 05/11/2005 Schizophrenia, chronic condition ([facility]) 04/23/2017 Well controlled, Dr Abebe. Stable for [...] Amoxicillin MEDICATIONS Current Outpatient Medications Medication Sig furosemide (LASIX) 40 mg tablet Take 1 tablet by mouth once daily. atorvastatin (LIPITOR) 20 mg tablet Take 1 tablet by mouth once daily. Replaces simvastatin OXYGEN, HOME THERAPY, 2 L/min by Nasal Cannula route continuous. famotidine (PEPCID) 20 mg tablet Take 1 tablet by mouth two times a day. OTC NUTRITIONAL SUPPLEMENT NUVOFLEX TURMERIC ORAL Take by mouth. tamsulosin (FLOMAX) 0.4 mg Take 1 capsule by mouth every 12 hours. solifenacin 10 mg tablet Take 1 tablet by mouth every afternoon. empagliflozin (JARDIANCE) 25 mg tablet Take 1 tablet by mouth once daily. Take 1 tablet once daily in the morning losartan (COZAAR) 100 mg tablet Take 1 tablet by mouth once daily. cyanocobalamin (VITAMIN B-12) 1,000 mcg tab Take 1 tablet by mouth once daily. carvedilol (COREG) 25 mg tablet Take 1 tablet by mouth two times a day. ELIQUIS 5 mg tab(s) Take 1 tablet by mouth two times a day. Blood-Glucose Meter,Continuous (FREESTYLE MARIELLE 3 READER) [facility] Use to check blood sugar at least four (4) times daily. Uses insulin Blood-Glucose Sensor (FREESTYLE MARIELLE 3 PLUS SENSOR) sayra Apply new sensor every fifteen (15) days to upper arm. colestipol (COLESTID) 1 gram tablet Take 1 tablet by mouth once daily. albuterol HFA (VENTOLIN HFA) 90 mcg/actuation inhaler Inhale 2 Puffs as instructed every 4 hours as needed. insulin lispro (HUMALOG KWIKPEN INSULIN) 100 unit/mL Inject 20 Units subcutaneously three times a day before meals. Getting through [facility] (Patient taking differently: Inject 26 Units subcutaneously three times a day before meals. Getting through [facility]) dilTIAZem CD (CARDIZEM CD, CARTIA XT) 120 [...] mouth every 12 hours. Prescribed by outside envelope folder insulin glargine (BASAGLAR KWIKPEN U-100 INSULIN) 100 unit/mL (3 mL) Inject 90 Units subcutaneously daily at bedtime. (Patient taking differently: Inject 60 Units subcutaneously daily at bedtime.) finasteride (PROSCAR) 5 mg tablet aspirin 81 mg chewable tablet Take 81 mg by mouth once daily. insulin needles, DISPOSABLE, (1ST TIER UNIFINE PENTIPS) 31 gauge x 5/16 ndle 1 Each once daily. DX: E11.9 Insulin: Yes Insulin Syri (more content not included)... Normal [facility] Cardiology Visit Reporton Cardiology Visit Report Normal [facility] CBC W/Diff, Automatedon PATH REV Reviewed Normal [facility] Comment on above: Result Comment: Leuk ocytosis.Clinical correlation necessary.Callum Arteaga M.D. 09/22/24 AMENDED REPORT 09/22/24 1321 PATH REV previously reported as: January Performed By: #### L 501.5425, L500.2500, L100.0100 ####[facility] [address] [place], [address] [facility] 09[facility]22-20[facility] FAISAL ALARCON ([id number]) 1945 M Date Time Provider Department 09/22/24 DENISHA SHEPARD During your visit today, we recorded the following information about you: Liyah Monroy, RN 09/22/2024 1:03 PM Signed Pts daughter called in and reports her father was in [facility] ER 09/20/24. She reports Pt was having chest pain and that is why he went to the ER. Pts daughter states they didn't find anything wrong with him, everything was the same as before. Pt scheduled with Denisha Shepard [employer] 09/23/24 at 240 pm. She reports he father has been feeling lightheaded and dizzy, and she thinks it's because on 09/13/[address] Ponce double his dose of Lasix. She said he has been to the ER multiple times and they have told him he has fluid around his heart. She said Pt didn't have any issues breathing, but he is on O2 and if he is off of that he has trouble breathing. She states she thinks the dizziness is from the increased dose of Lasix and Pt being dehydrated. She checked his O2, pulse, and BS today and they were fine. She wasn't able to check his BP as she didn't bring her cuff. She states his BP has been running a little lower at times like 100s/60s. Pt normally runs 120-mid 130s/70-80. I told her to call Cardiology as they would have to change the dosing on that as they prescribe it. She said she was going to, I also told her to see if she could get his appointment with them moved up since it is out a few weeks from now. Denisha Shepard APRN.CNP 09/23/2024 5:14 PM Signed See office notes. Has appt w/ cardiology today. Denisha Shepard APRN.CNP Allergies As of Date: 09/22/2024 Noted Allergy Reaction AMOXICILLIN 05/11/2005 Comments: generalized erythema Date Reviewed: 07/29/2024 Reviewed by: Julianna Hood APRN.CNP - Fully Assessed Reason for Visit: Patient Update [1234] Appointment [186] Prescriptions as of 09/23/2024 - furosemide (LASIX) 40 mg tablet Take 1 tablet by mouth once daily. - atorvastatin (LIPITOR) 20 mg tablet Take 1 tablet by mouth once daily. Replaces simvastatin - OXYGEN, HOME THERAPY, 2 L/min by Nasal Cannula route continuous. - famotidine (PEPCID) 20 mg tablet Take 1 tablet by mouth two times a day. - OTC NUTRITIONAL SUPPLEMENT NUVOFLEX - TURMERIC ORAL Take by mouth. - tamsulosin (FLOMAX) 0.4 mg Take 1 capsule by mouth every 12 hours. - solifenacin 10 mg tablet Take 1 tablet by mouth every afternoon. - empagliflozin (JARDIANCE) 25 mg tablet Take 1 tablet by mouth once daily. Take 1 tablet once daily in the morning - losartan (COZAAR) 100 mg tablet Take 1 tablet by mouth once daily. - cyanocobalamin (VITAMIN B-12) 1,000 mcg tab Take 1 tablet by mouth once daily. - carvedilol (COREG) 25 mg tablet Take 1 tablet by mouth two times a day. - ELIQUIS 5 mg tab(s) Take 1 tablet by mouth two times a day. - Blood-Glucose Meter,Continuous (FREESTYLE MARIELLE 3 READER) [facility] Use to check blood sugar at least four (4) times daily. Uses insulin - Blood-Glucose Sensor (FREESTYLE MARIELLE 3 PLUS SENSOR) sayra Apply new sensor every fifteen (15) days to upper arm. - colestipol (COLESTID) 1 gram tablet Take 1 tablet by mouth once daily. - albuterol HFA (VENTOLIN HFA) 90 mcg/actuation inhaler Inhale 2 Puffs as instructed every 4 hours as needed. - insulin lispro (HUMALOG KWIKPEN INSULIN) 100 unit/mL Inject 20 Units subcutaneously three times a day before meals. Getting through [facility] - dilTIAZem CD (CARDIZEM CD, CARTIA XT) [...] mouth every 12 hours. Prescribed by outside envelope folder - insulin glargine (BASAGLAR KWIKPEN U-100 INSULIN) [...] of 08/20/2013: Problem List As Of Date 09/22/2024 Noted Resolved OTHER PSORIASIS [L40.8] 05/11/2005 Essential hypertension [I10] 05/11/2005 Morbid obesity (HCC) [E66.01] 05/11/2005 06/06/2023 Paranoid schizophrenia, subchronic condition wi* (more content not included)... Normal [facility] 12 Lead EKGon 09-20-2024 12 Lead EKG Normal [facility] 12 Lead EKG Normal [facility] Absolute neutrophil countOrd ered By: Reji Smith on 09-20-2024 Neutrophils (Bld) [#/Vol] 7.5 10*3/uL 2.0-7.7 [facility] Basic Metabolic Profile (BMP )on 09-20-2024 BUN/CRE 21.4 RATIO High 10-20 [facility] Comment on above: Order Comment: 1Y Performed By: #### L 501.5425, L500.2500, L100.0100 ####[facility] [address] [place], [place], [id number] [place],Total 9.5 mg/dL Normal 8.5-10.1 [facility] Comment on above: Order Comment: 1Y Performed By: #### L 501.5425, L500.2500, L100.0100 ####[facility] [address] [place], [address] Chloride [Moles/Vol] 102 mmol/L Normal 98-107 [facility] Comment on above: Order Comment: 1Y Performed By: #### L 501.5425, L500.2500, L100.0100 ####[facility] [address] [place], [address] CO2 [Moles/Vol] 27.0 mmol/L Normal 21.0-32.0 [facility] Comment on above: Order Comment: 1Y Performed By: #### L 501.5425, L500.2500, L100.0100 ####[facility] [address] [place], [address] Creatinine [Mass/Vol] 1.26 mg/dL Normal 0.70-1.30 [facility] Comment on above: Order Comment: 1Y Result Comment: The validity of the calculated GFR GFRAA in patients over70 years has not been determined. Clinical correlation isessential. Performed By: #### L 501.5425, L500.2500, L100.0100 ####[facility] [address] [place], [address] ECRCL 66.12 ml/min Normal [facility] Comment on above: Order Comment: 1Y Performed By: #### L 501.5425, L500.2500, L100.0100 ####[facility] [address] [place], [address] EST GFR - AA 71 mL/min Normal >60 [facility] Comment on above: Order Comment: 1Y Result Comment: Afri can Malagasy GFR Calc Performed By: #### L 501.5425, L500.2500, L100.0100 ####[facility] [address] [place], [address] GAP 8 Normal 5-15 [facility] Comment on above: Order Comment: 1Y Performed By: #### L 501.5425, L500.2500, L100.0100 ####[facility] [address] [place], [address] GFR/1.73 sq M.predicted among non-blacks MDRD (S/P/Bld) [Vol rate/Area] 59 mL/min/{1.73_m2} Low >60 [facility] Comment on above: Order Comment: 1Y Result Comment: Non- GFR Calc Performed By: #### L 501.5425, L500.2500, L100.0100 ####[facility] [address] [place], [address] Glucose [Mass/Vol] 147 mg/dL High 74-106 [facility] Comment on above: Order Comment: 1Y Result Comment: Fast ing Glucose result greater than or equal to 126 mg/dLsuggests DIABETES MELLITUS per A.D.A. criteria. Performed By: #### L 501.5425, L500.2500, L100.0100 ####[facility] [address] [place], [address] Potassium [Moles/Vol] 3.8 mmol/L Normal 3.5-5.1 [facility] Comment on above: Order Comment: 1Y Performed By: #### L 501.5425, L500.2500, L100.0100 ####[facility] [address] [place], [address] Sodium [Moles/Vol] 137 mmol/L Normal 136-145 [facility] Comment on above: Order Comment: 1Y Performed By: #### L 501.5425, L500.2500, L100.0100 ####[facility] [address] [place], [address] Urea nitrogen [Mass/Vol] 27 mg/dL High 7-18 [facility] Comment on above: Order Comment: 1Y Performed By: #### L 501.5425, L500.2500, L100.0100 ####[facility] [address] [place], [address] Basophil percentageOrdered B y: Reji Smith on 09-20-2024 Basophils/100 WBC (Bld) 0.4 % 0-1 [facility] Blood urea nitrogen (BUN)/cr eatinine ratioOrdered By: Reji Smith on 09-20-2024 Urea nitrogen/Creatinine [Mass ratio] 21.4 mg/mg High 10-20 [facility] Carbon dioxide measurementOr dered By: Reji Smith on 09-20-2024 CO2 [Moles/Vol] 27.0 mmol/L 21.0-32.0 [facility] Chest 1 View (Portable)on Chest 1 View (Portable) Normal [facility] Chloride measurementOrdered By: Reji Smith on 09-20-2024 Chloride [Moles/Vol] 102 mmol/L 98-107 [facility] Emergency Department Summary on 09-20-2024 Emergency Department Summary Normal [facility] Eosinophil percentageOrdered By: Reji Smith on 09-20-2024 Eosinophils/100 WBC (Bld) 2.9 % 0-5 [facility] Erythrocyte distribution wid th ratioOrdered By: Reji Smith on 09-20-2024 Erythrocyte distribution width (RBC) [Ratio] 15.0 % High 11.6-14.6 [facility] Erythrocyte distribution wid th standard deviationOrdered By: Reji Smith on 09-20-2024 Erythrocyte distribution width (RBC) [Entitic vol] 43.9 fL 35.1-43.9 [facility] Estimated glomerular filtrat ion rate (GFR) AmericanOrdered By: Reji Smith on 09-20-2024 Estimated GFR (MDRD) Amer 71 mL/min >60 [facility] Comment on above: GFR Calc Estimation of creatinine ashley aranceOrdered By: Reji Smith on 09-20-2024 Estimated Creatinine Clearance Calc 66.12 ml/min [facility] Glomerular filtration rate ( GFR) estimationOrdered By: Reji Smith on 09-20-2024 Estimated GFR (MDRD) Non-Af Amer 59 mL/min Low >60 [facility] Comment on above: Non- GFR Calc Glucose measurementOrdered B y: Reji Alexandradede on 09-20-2024 Glucose [Mass/Vol] 147 mg/dL High 74-106 [facility] Comment on above: Fasting Glucose resu lt greater than or equal to 126 mg/dL suggests DIABETES MELLITUS per A.D.A. criteria. Hematocrit Auto (Bld) [Volum e fraction]Ordered By: Reji Smith on 09-20-2024 Hematocrit (Bld) [Volume fraction] 43.8 % 40-54 [facility] Hemoglobin measurementOrdere d By: Reji Smith on 09-20-2024 Hemoglobin (Bld) [Mass/Vol] 13.9 g/dL 13.0-16. 5 [facility] Immature granulocytes/100 WB C Auto (Bld)Ordered By: Reji Smith on 09-20-2024 Immature granulocytes/100 WBC (Bld) 0.400 % 0.0-0.9 [facility] Comment on above: IG% - Immature Granu locytes (promyelocytes, myelocytes and metamyelocytes) > 1% indicates that a LEFT SHIFT is Present. L501.4020on 09-20-2024 TROPONIN-I HS 8 pg/mL Normal 3.0-78.0 [facility] Comment on above: Result Comment: Plea se Note: New Test Units and Gender Specific Reference Ranges. For more information see Policy Stat Procedure Pierre High Sensitivity Troponin (TNIH) and attachments. Performed By: #### L 501.4020 ####[facility] [address] [place], [place], [address] L501.5425on 09-20-2024 TROPONIN-I HS 10 pg/mL Normal 3.0-78.0 [facility] Comment on above: Order Comment: 1Y Result Comment: Plea se Note: New Test Units and Gender Specific Reference Ranges. For more information see Policy Stat Procedure Pierre High Sensitivity Troponin (TNIH) and attachments. Performed By: #### L 501.5425, L500.2500, L100.0100 ####[facility] [address] [place], [address] Lymphocytes Auto (Unsp spec) [#/Vol]Ordered By: Reji Smith on 09-20-2024 Lymphocytes (Bld) [#/Vol] 1.85 10*3/uL 0.83-4.5 1 [facility] Lymphocytes/100 WBC Auto (Un sp spec)Ordered By: Reji Smith on 09-20-2024 Lymphocytes/100 WBC (Bld) 16.3 % Low 19-41 [facility] MCV (mean corpuscular volume ) determinationOrdered By: Reji Smith on 09-20-2024 MCV (RBC) [Entitic vol] 80.4 fL 80-94 [facility] Manual differential comment Rey (Bld) [Interp]Ordered By: Reji Smith on 09-20-2024 Differential Comment SCANNED [facility] Comment on above: MONOCYTOSIS NOTED Mean corpuscular hemoglobin (MCH) determinationOrdered By: Reji Smith on 09-20-2024 MCH (RBC) [Entitic mass] 25.5 pg Low 27.0-32.0 [facility] Mean corpuscular hemoglobin concentration (MCHC) determinationOrdered By: Reji Smith on 09-20-2024 MCHC (RBC) [Mass/Vol] 31.7 g/dL Low 32-36 [facility] Mean platelet volume determi nationOrdered By: Reji Smith on 09-20-2024 Platelet mean volume (Bld) [Entitic vol] 11.3 fL 6.2-12.0 [facility] Monocyte percentageOrdered B y: Reji Smith on 09-20-2024 Monocytes/100 WBC (Bld) 14.0 % High 0-10 [facility] Neutrophil percentageOrdered By: Reji Smith on 09-20-2024 Neutrophils/100 WBC (Bld) 66.0 % 47-70 [facility] Nucleated red blood cell per centageOrdered By: Reji Smith on 09-20-2024 Nucleated RBC/100 WBC (Bld) [Ratio] 0 % 0-5 [facility] Pathologist review Rey (Unsp spec) [Interp]Ordered By: Reji Smith on 09-20-2024 Differential Pathologist's Review Reviewed [facility] Comment on above: Previous reported re sult: Tamara bernard Edited by: IRON on 09/22/24:1321Leukocytosis.Clinical correlation necessary.Callum Arteaga M.D. 09/22/24 AMENDED REPORT 09/22/24 1321 PATH REV previously reported as: January Platelet countOrdered By: Kevin Smith on 09-20-2024 Platelets (Bld) [#/Vol] 284 10*3/uL 150-450 [facility] Potassium measurementOrdered By: Reji Smith on 09-20-2024 Potassium [Moles/Vol] 3.8 mmol/L 3.5-5.1 [facility] RBC Auto (Bld) [#/Vol]Ordere d By: Reji Smith on 09-20-2024 RBC (Bld) [#/Vol] 5.45 10*6/uL 4.6-6.2 [facility] Serum anion gap measurementO rdered By: Reji Smith on 09-20-2024 Anion gap [Moles/Vol] 8 mmol/L 5-15 [facility] Serum or plasma calcium nahomy urement (mass/volume)Ordered By: Reji Smith on 09-20-2024 Calcium [Mass/Vol] 9.5 mg/dL 8.5-10.1 [facility] Serum or plasma creatinine m easurement (mass/volume)Ordered By: Reji Smith on 09-20-2024 Creatinine [Mass/Vol] 1.26 mg/dL 0.70-1.30 [facility] Comment on above: The validity of the calculated GFR & GFRAA in patients over 70 years has not been determined. Clinical correlation is essential. Serum or plasma urea nitroge n measurement (mass/volume)Ordered By: Reji Smith on 09-20-2024 Urea nitrogen [Mass/Vol] 27 mg/dL High 7-18 [facility] Sodium levelOrdered By: Reji Smith on 09-20-2024 Sodium [Moles/Vol] 137 mmol/L 136-145 [facility] Troponin IOrdered By: Reji sawyer on 09-20-2024 Troponin I High Sensitivity 8 pg/mL 3.0-78.0 [facility] Comment on above: Please Note: New Carmen t Units and Gender Specific Reference Ranges. For more information see Policy Stat Procedure Pierre High Sensitivity Troponin (TNIH) and attachments. White blood cell (WBC) count Ordered By: Reji Smith on 09-20-2024 WBC (Bld) [#/Vol] 11.4 10*3/uL High 4.4-11.0 [facility] Cardiology Visit Reporton Cardiology Visit Report Normal [facility] Urine Cultureon 09-02-2024 [facility] Mixed Gram Positive Organisms Lawrence Count 80,000-100,000 [facility] Mixed contaminants. Submit a new specimen if indicated. Normal [facility] Comment on above: Performed By: #### M 100.2200 ####[facility] [address] [place], [address] 12 Lead EKGon 09-01-2024 12 Lead EKG Normal [facility] Abdomen/Pelvis W IV Cont ONL Yon 09-01-2024 Abdomen/Pelvis W IV Cont ONLY Normal [facility] Absolute neutrophil countOrd ered By: Mani Esquivel on 09-01-2024 Neutrophils (Bld) [#/Vol] 7.5 10*3/uL 2.0-7.7 [facility] Basic Metabolic Profile (BMP )on 09-01-2024 BUN/CRE 28.1 RATIO High 10-20 [facility] Comment on above: Order Comment: 'TROP ' Serial specimen #1, #2 or #3: 1 Performed By: #### L 501.5200, L500.2500, L100.0100, L501.4020 ####[facility] [address] [place], [address] CA,Total 9.3 mg/dL Normal 8.5-10.1 [facility] Comment on above: Order Comment: 'TROP ' Serial specimen #1, #2 or #3: 1 Performed By: #### L 501.5200, L500.2500, L100.0100, L501.4020 ####[facility] [address] [place], [address] Chloride [Moles/Vol] 106 mmol/L Normal 98-107 [facility] Comment on above: Order Comment: 'TROP ' Serial specimen #1, #2 or #3: 1 Performed By: #### L 501.5200, L500.2500, L100.0100, L501.4020 ####[facility] [address] [place], [address] CO2 [Moles/Vol] 24.0 mmol/L Normal 21.0-32.0 [facility] Comment on above: Order Comment: 'TROP ' Serial specimen #1, #2 or #3: 1 Performed By: #### L 501.5200, L500.2500, L100.0100, L501.4020 ####[facility] [address] [place], [address] Creatinine [Mass/Vol] 1.14 mg/dL Normal 0.70-1.30 [facility] Comment on above: Order Comment: 'TROP ' Serial specimen #1, #2 or #3: 1 Result Comment: The validity of the calculated GFR GFRAA in patients over70 years has not been determined. Clinical correlation isessential. Performed By: #### L 501.5200, L500.2500, L100.0100, L501.4020 ####[facility] [address] [place], [address] ECRCL 73.93 ml/min Normal [facility] Comment on above: Order Comment: 'TROP ' Serial specimen #1, #2 or #3: 1 Performed By: #### L 501.5200, L500.2500, L100.0100, L501.4020 ####[facility] [address] [place], [address] EST GFR - AA 79 mL/min Normal >60 [facility] Comment on above: Order Comment: 'TROP ' Serial specimen #1, #2 or #3: 1 Result Comment: Afri can Malagasy GFR Calc Performed By: #### L 501.5200, L500.2500, L100.0100, L501.4020 ####[facility] [address] [place], [address] GAP 7 Normal 5-15 [facility] Comment on above: Order Comment: 'TROP ' Serial specimen #1, #2 or #3: 1 Performed By: #### L 501.5200, L500.2500, L100.0100, L501.4020 ####[facility] [address] [place], [address] GFR/1.73 sq M.predicted among non-blacks MDRD (S/P/Bld) [Vol rate/Area] 66 mL/min/{1.73_m2} Normal >60 [facility] Comment on above: Order Comment: 'TROP ' Serial specimen #1, #2 or #3: 1 Result Comment: Non- GFR Calc Performed By: #### L 501.5200, L500.2500, L100.0100, L501.4020 ####[facility] [address] [place], [address] Glucose [Mass/Vol] 98 mg/dL Normal 74-106 [facility] Comment on above: Order Comment: 'TROP ' Serial specimen #1, #2 or #3: 1 Performed By: #### L 501.5200, L500.2500, L100.0100, L501.4020 ####[facility] [address] [place], [address] Potassium [Moles/Vol] 3.6 mmol/L Normal 3.5-5.1 [facility] Comment on above: Order Comment: 'TROP ' Serial specimen #1, #2 or #3: 1 Performed By: #### L 501.5200, L500.2500, L100.0100, L501.4020 ####[facility] [address] [place], [address] Sodium [Moles/Vol] 138 mmol/L Normal 136-145 [facility] Comment on above: Order Comment: 'TROP ' Serial specimen #1, #2 or #3: 1 Performed By: #### L 501.5200, L500.2500, L100.0100, L501.4020 ####[facility] [address] [place], [address] Urea nitrogen [Mass/Vol] 32 mg/dL High 04-03 [facility] Comment on above: Order Comment: 'TROP ' Serial specimen #1, #2 or #3: 1 Performed By: #### L 501.5200, L500.2500, L100.0100, L501.4020 ####[facility] [address] [place], [address] Basophil percentageOrdered B y: Mani Esquivel on 09-01-2024 Basophils/100 WBC (Bld) 0.4 % 0-1 [facility] Bilirubin Test strip Ql (U)O rdered By: Mani Esquivel on 09-01-2024 Bilirubin Ql (U) Negative Negative [facility] Blood urea nitrogen (BUN)/cr eatinine ratioOrdered By: Mani Esquivel on 09-01-2024 Urea nitrogen/Creatinine [Mass ratio] 28.1 mg/mg High - [facility] CBC W/Diff, Automatedon 08-17 Absolute Lymph 2.06 X10 3/uL Normal 0.83-4.51 [facility] Comment on above: Performed By: #### L 501.5200, L500.2500, L100.0100, L501.4020 ####[facility] [address] [place], [address] Absolute Neut 7.5 X10 3/uL Normal 2.0-7.7 [facility] Comment on above: Performed By: #### L 501.5200, L500.2500, L100.0100, L501.4020 ####[facility] [address] [place], [address] Basophils/100 WBC (Bld) 0.4 % Normal 0-1 [facility] Comment on above: Performed By: #### L 501.5200, L500.2500, L100.0100, L501.4020 ####[facility] [address] [place], [address] Eosinophils/100 WBC (Bld) 2.9 % Normal 0-5 [facility] Comment on above: Performed By: #### L 501.5200, L500.2500, L100.0100, L501.4020 ####[facility] [address] [place], [address] Erythrocyte distribution width (RBC) [Ratio] 15.3 % High 11.6-14.6 [facility] Comment on above: Performed By: #### L 501.5200, L500.2500, L100.0100, L501.4020 ####[facility] [address] [place], [address] Hematocrit (Bld) [Volume fraction] 41.4 % Normal 40-54 [facility] Comment on above: Performed By: #### L 501.5200, L500.2500, L100.0100, L501.4020 ####[facility] [address] [place], [address] Hemoglobin (Bld) [Mass/Vol] 13.1 g/dL Normal 13.0-16. 5 [facility] Comment on above: Performed By: #### L 501.5200, L500.2500, L100.0100, L501.4020 ####[facility] [address] [place], [address] IG% 0.300 Normal 0.0-0.9 [facility] Comment on above: Result Comment: IG% - Immature Granulocytes (promyelocytes, myelocytes andmetamyelocytes) > 1% indicates that a LEFT SHIFT is Present. Performed By: #### L 501.5200, L500.2500, L100.0100, L501.4020 ####[facility] [address] [place], [address] Lymphocytes/100 WBC (Bld) 18.2 % Low 19-41 [facility] Comment on above: Performed By: #### L 501.5200, L500.2500, L100.0100, L501.4020 ####[facility] [address] [place], [address] MCH (RBC) [Entitic mass] 26.2 pg Low 27.0-32.0 [facility] Comment on above: Performed By: #### L 501.5200, L500.2500, L100.0100, L501.4020 ####[facility] [address] [place], [address] MCHC (RBC) [Mass/Vol] 31.6 g/dL Low 32-36 [facility] Comment on above: Performed By: #### L 501.5200, L500.2500, L100.0100, L501.4020 ####[facility] [address] [place], [address] MCV (RBC) [Entitic vol] 82.8 fL Normal 80-94 [facility] Comment on above: Performed By: #### L 501.5200, L500.2500, L100.0100, L501.4020 ####[facility] [address] [place], [address] Monocytes/100 WBC (Bld) 11.8 % High 0-10 [facility] Comment on above: Performed By: #### L 501.5200, L500.2500, L100.0100, L501.4020 ####[facility] [address] [place], [address] Neutrophils/100 WBC (Bld) 66.4 % Normal 47-70 [facility] Comment on above: Performed By: #### L 501.5200, L500.2500, L100.0100, L501.4020 ####[facility] [address] [place], [address] Nucleated RBC (Bld) [#/Vol] 0 10*3/uL Normal 0-5 [facility] Comment on above: Performed By: #### L 501.5200, L500.2500, L100.0100, L501.4020 ####[facility] [address] [place], [address] Platelet mean volume (Bld) [Entitic vol] 11.2 fL Normal 6.2-12.0 [facility] Comment on above: Performed By: #### L 501.5200, L500.2500, L100.0100, L501.4020 ####[facility] [address] [place], [address] Platelets (Bld) [#/Vol] 301 10*3/uL Normal 150-450 [facility] Comment on above: Performed By: #### L 501.5200, L500.2500, L100.0100, L501.4020 ####[facility] [address] [place], [address] RBC (Bld) [#/Vol] 5.00 10*6/uL Normal 4.6-6.2 [facility] Comment on above: Performed By: #### L 501.5200, L500.2500, L100.0100, L501.4020 ####[facility] [address] [place], [address] RDW SD 46.0 fl High 35.1-43.9 [facility] Comment on above: Performed By: #### L 501.5200, L500.2500, L100.0100, L501.4020 ####[facility] [address] [place], [address] WBC (Bld) [#/Vol] 11.3 10*3/uL High 4.4-11.0 [facility] Comment on above: Performed By: #### L 501.5200, L500.2500, L100.0100, L501.4020 ####[facility] [address] [place], [address] Carbon dioxide measurementOr dered By: Mani Esquivel on 09-01-2024 CO2 [Moles/Vol] 24.0 mmol/L 21.0-32.0 [facility] Chest PA and Lateralon 09-01 Chest PA and Lateral Normal [facility] Chloride measurementOrdered By: Mani Esquivel on 09-01-2024 Chloride [Moles/Vol] 106 mmol/L 98-107 [facility] Emergency Department Summary on 09-01-2024 Emergency Department Summary Normal [facility] Eosinophil percentageOrdered By: Mani Esquivel on 09-01-2024 Eosinophils/100 WBC (Bld) 2.9 % 0-5 [facility] Epithelial cells.squamous LM Ql (Urine sed)Ordered By: Mani Esquivel on 09-01-2024 Epithelial cells.squamous LM.HPF (Urine sed) [#/Area] 5 /[HPF] 0-5 [facility] Erythrocyte distribution wid th ratioOrdered By: Mani Esquivel on 09-01-2024 Erythrocyte distribution width (RBC) [Ratio] 15.3 % High 11.6-14.6 [facility] Erythrocyte distribution wid th standard deviationOrdered By: Mani Esquivel on 09-01-2024 Erythrocyte distribution width (RBC) [Entitic vol] 46.0 fL High 35.1-43.9 [facility] Estimated glomerular filtrat ion rate (GFR) AmericanOrdered By: Mani Esquivel on 09-01-2024 Estimated GFR (MDRD) Amer 79 mL/min >60 [facility] Comment on above: GFR Calc Estimation of creatinine ashley aranceOrdered By: Mani Esquivel on 09-01-2024 Estimated Creatinine Clearance Calc 73.93 ml/min [facility] Glomerular filtration rate ( GFR) estimationOrdered By: Mani Esquivel on 09-01-2024 Estimated GFR (MDRD) Non-Af Amer 66 mL/min >60 [facility] Comment on above: Non- GFR Calc Glucose Ql (U)Ordered By: Brigitte Esquivel on 09-01-2024 Glucose (U) [Mass/Vol] 1000 mg/dL High Normal [facility] Glucose measurementOrdered B y: Mani Esquivel on 09-01-2024 Glucose [Mass/Vol] 98 mg/dL 74-106 [facility] Hematocrit Auto (Bld) [Volum e fraction]Ordered By: Mani Esquivel on 09-01-2024 Hematocrit (Bld) [Volume fraction] 41.4 % 40-54 [facility] Hemoglobin measurementOrdere d By: Mani Esquivel on 09-01-2024 Hemoglobin (Bld) [Mass/Vol] 13.1 g/dL 13.0-16. 5 [facility] Immature granulocytes/100 WB C Auto (Bld)Ordered By: Mani Esquivel on 09-01-2024 Immature granulocytes/100 WBC (Bld) 0.300 % 0.0-0.9 [facility] Comment on above: IG% - Immature Granu locytes (promyelocytes, myelocytes and metamyelocytes) > 1% indicates that a LEFT SHIFT is Present. Ketones Test strip Ql (U)Ord ered By: Mani Esquivel on 09-01-2024 Ketones Ql (U) Negative Negative [facility] L501.4020on 09-01-2024 TROPONIN-I HS 11 pg/mL Normal 3.0-78.0 [facility] Comment on above: Order Comment: 'TROP ' Serial specimen #1, #2 or #3: 2 Result Comment: Plea se Note: New Test Units and Gender Specific Reference Ranges. For more information see Policy Stat Procedure Pierre High Sensitivity Troponin (TNIH) and attachments. Performed By: #### L 501.4020 ####[facility] [address] [place], [place], [address] TROPONIN-I HS 10 pg/mL Normal 3.0-78.0 [facility] Comment on above: Order Comment: 'TROP ' Serial specimen #1, #2 or #3: 1 Result Comment: Plea se Note: New Test Units and Gender Specific Reference Ranges. For more information see Policy Stat Procedure Pierre High Sensitivity Troponin (TNIH) and attachments. Performed By: #### L 501.5200, L500.2500, L100.0100, L501.4020 ####[facility] [address] [place], [address] Lymphocytes Auto (Unsp spec) [#/Vol]Ordered By: Mani Esquivel on 09-01-2024 Lymphocytes (Bld) [#/Vol] 2.06 10*3/uL 0.83-4.5 1 [facility] Lymphocytes/100 WBC Auto (Un sp spec)Ordered By: Mani Esquivel on 09-01-2024 Lymphocytes/100 WBC (Bld) 18.2 % Low 19-41 [facility] MCV (mean corpuscular volume ) determinationOrdered By: Mani Esquivel on 09-01-2024 MCV (RBC) [Entitic vol] 82.8 fL 80-94 [facility] Magnesiumon 09-01-2024 Magnesium [Mass/Vol] 2.2 mg/dL Normal 1.6-2.6 [facility] Comment on above: Order Comment: 'TROP ' Serial specimen #1, #2 or #3: 1 Performed By: #### L 501.5200, L500.2500, L100.0100, L501.4020 ####[facility] [address] [place], [address] Magnesium measurementOrdered By: Mani Esquivel on 09-01-2024 Magnesium [Mass/Vol] 2.2 mg/dL 1.6-2.6 [facility] Mean corpuscular hemoglobin (MCH) determinationOrdered By: Mani Esquivel on 09-01-2024 MCH (RBC) [Entitic mass] 26.2 pg Low 27.0-32.0 [facility] Mean corpuscular hemoglobin concentration (MCHC) determinationOrdered By: Mani Esquivel on 09-01-2024 MCHC (RBC) [Mass/Vol] 31.6 g/dL Low 32-36 [facility] Mean platelet volume determi nationOrdered By: Mani Esquivel on 09-01-2024 Platelet mean volume (Bld) [Entitic vol] 11.2 fL 6.2-12.0 [facility] Microscopic analysis of urin e for red blood cells (RBC)Ordered By: Mani Esquivel on 09-01-2024 Urine RBC 10-25 SEEN /hpf 0-5 [facility] Monocyte percentageOrdered B y: Mani Esquivel on 09-01-2024 Monocytes/100 WBC (Bld) 11.8 % High 0-10 [facility] Mucus LM Ql (Urine sed)Order ed By: Mani Esquivel on 09-01-2024 Mucus Ql (Urine sed) 0 SEEN /hpf [facility] Neutrophil percentageOrdered By: Mani Esquivel on 09-01-2024 Neutrophils/100 WBC (Bld) 66.4 % 47-70 [facility] Nitrite Test strip Ql (U)Ord ered By: Mani Esquivel on 09-01-2024 Nitrite Ql (U) Negative Negative [facility] Nucleated red blood cell per centageOrdered By: Mani Esquivel on 09-01-2024 Nucleated RBC/100 WBC (Bld) [Ratio] 0 % 0-5 [facility] Platelet countOrdered By: Brigitte Esquivel on 09-01-2024 Platelets (Bld) [#/Vol] 301 10*3/uL 150-450 [facility] Potassium measurementOrdered By: Mani Esquivel on 09-01-2024 Potassium [Moles/Vol] 3.6 mmol/L 3.5-5.1 [facility] Protein Test strip Ql (U)Ord ered By: Mani Esquivel on 09-01-2024 Protein Ql (U) 30 mg/dl High Negative [facility] RBC Auto (Bld) [#/Vol]Ordere d By: Mani Esquivel on 09-01-2024 RBC (Bld) [#/Vol] 5.00 10*6/uL 4.6-6.2 [facility] Serum anion gap measurementO rdered By: Mani Esquivel on 09-01-2024 Anion gap [Moles/Vol] 7 mmol/L 5-15 [facility] Serum or plasma calcium nahomy urement (mass/volume)Ordered By: Mani Esquivel on 09-01-2024 Calcium [Mass/Vol] 9.3 mg/dL 8.5-10.1 [facility] Serum or plasma creatinine m easurement (mass/volume)Ordered By: Mani Esquivel on 09-01-2024 Creatinine [Mass/Vol] 1.14 mg/dL 0.70-1.30 [facility] Comment on above: The validity of the calculated GFR & GFRAA in patients over 70 years has not been determined. Clinical correlation is essential. Serum or plasma urea nitroge n measurement (mass/volume)Ordered By: Mani Esquivel on 09-01-2024 Urea nitrogen [Mass/Vol] 32 mg/dL High 7-18 [facility] Sodium levelOrdered By: Lit Esquivel on 09-01-2024 Sodium [Moles/Vol] 138 mmol/L 136-145 [facility] Troponin IOrdered By: Mani Esquivel on 09-01-2024 Troponin I High Sensitivity 11 pg/mL 3.0-78.0 [facility] Comment on above: Please Note: New Carmen t Units and Gender Specific Reference Ranges. For more information see Policy Stat Procedure Pierre High Sensitivity Troponin (TNIH) and attachments. Urinalysis, Completeon 09-01 BACTERIA 4+ /hpf Normal None Seen [facility] Comment on above: Order Comment: OG NGUYENOR TO SPECIFY Performed By: #### L 400.0001 ####[facility] [address] [place], [address] EPI,SQUAMOUS 5-10 SEEN Normal 0-5 [facility] Comment on above: Order Comment: GO CTOR TO SPECIFY Performed By: #### L 400.0001 ####[facility] [address] [place], [address] RBC 10-25 SEEN Normal 0-5 [facility] Comment on above: Order Comment: GO CTOR TO SPECIFY Performed By: #### L 400.0001 ####[facility] [address] [place], [address] WBC 25-50 SEEN Normal 0-5 [facility] Comment on above: Order Comment: GO CTOR TO SPECIFY Performed By: #### L 400.0001 ####[facility] [address] [place], [place], [id number] Mucus Ql (Urine sed) 0 SEEN Normal [facility] Comment on above: Order Comment: GO CTOR TO SPECIFY Performed By: #### L 400.0001 ####[facility] [address] [place], [place], [id number] Urine blood detectionOrdered By: Mani Esquivel on 09-01-2024 Urine Occult Blood 150 /ul High Negative [facility] Urine clarityOrdered By: Rashel Esquivel on 09-01-2024 Clarity (U) Cloudy Clear [facility] Urine color determinationOrd ered By: Mani Esquivel on 09-01-2024 Color (U) Yellow Yellow [facility] Urine cultureOrdered By: Rashel Esquivel on 09-01-2024 Bacteria identified Cx Nom (U) Positive Abnormal [facility] Urine leukocyte esterase det ection by dipstickOrdered By: Mani Esquivel on 09-01-2024 Leukocyte esterase Test strip Ql (U) 500 /ul High Negative [facility] Urine pHOrdered By: Mani khanna on 09-01-2024 pH (U) 5.0 [pH] 5.0 - 8.0 [facility] Urine sediment bacteria coun t by microscopy (number/high power field)Ordered By: Mani Esquivel on 09-01-2024 Bacteria LM.HPF (Urine sed) [#/Area] 4 /[HPF] None Seen [facility] Urine specific gravity measu rementOrdered By: Mani Esquivel on 09-01-2024 Specific gravity (U) [Rel density] 1.025 1.002-1.030 [facility] Urobilinogen Ql (U)Ordered B y: Mani Esquivel on 09-01-2024 Urine Urobilinogen Normal mg/dl Normal [facility] White blood cell (WBC) count Ordered By: Mani Esquivel on 09-01-2024 WBC (Bld) [#/Vol] 11.3 10*3/uL High 4.4-11.0 [facility] White blood cell countOrdere d By: Mani Esquivel on 09-01-2024 Urine WBC 25-50 SEEN /hpf 0-5 [facility] CNPSharlene 08-18-2024 YAKOV Telephone (COLIN) ESHAFAISAL ([id number]) 1945 M Date Time Provider Department 08/18/24 MATHIEU VIRGEN During your visit today, we recorded the following information about you: Kristina Higuera LPN 08/18/2024 12:58 PM Signed Kate with [facility] calls to check on status of order form that was faxed last week for Dexcom G7. Kate is asking if office did not receive order form if office would call back and let them know. DENISE Haro Tara, LPN 08/18/2024 1:15 PM Signed We did and faxed it back. Will fax again today. Allergies As of Date: 08/18/2024 Noted Allergy Reaction AMOXICILLIN 05/11/2005 Comments: generalized erythema Date Reviewed: 07/29/2024 Reviewed by: Julianna Hood APRN.RN ORTHOPAEDIC - Fully Assessed Reason for Visit: Orders [681] Prescriptions as of 08/18/2024 - OXYGEN, HOME THERAPY, 2 L/min by Nasal Cannula route continuous. - famotidine (PEPCID) 20 mg tablet Take 1 tablet by mouth two times a day. - OTC NUTRITIONAL SUPPLEMENT NUVOFLEX - TURMERIC ORAL Take by mouth. - tamsulosin (FLOMAX) 0.4 mg Take 1 capsule by mouth every 12 hours. - solifenacin 10 mg tablet Take 1 tablet by mouth every afternoon. - furosemide (LASIX) 40 mg tablet Take 1 tablet by mouth once daily. - empagliflozin (JARDIANCE) 25 mg tablet Take 1 tablet by mouth once daily. Take 1 tablet once daily in the morning - losartan (COZAAR) 100 mg tablet Take 1 tablet by mouth once daily. - cyanocobalamin (VITAMIN B-12) 1,000 mcg tab Take 1 tablet by mouth once daily. - carvedilol (COREG) 25 mg tablet Take 1 tablet by mouth two times a day. - ELIQUIS 5 mg tab(s) Take 1 tablet by mouth two times a day. - Blood-Glucose Meter,Continuous (FREESTYLE MARIELLE 3 READER) [facility] Use to check blood sugar at least four (4) times daily. Uses insulin - Blood-Glucose Sensor (FREESTYLE MARIELLE 3 PLUS SENSOR) sayra Apply new sensor every fifteen (15) days to upper arm. - colestipol (COLESTID) 1 gram tablet Take 1 tablet by mouth once daily. - losartan-hydroCHLOROth iazide (HYZAAR) 100-12.5 mg per tablet Take 1 tablet by mouth once daily. - albuterol HFA (VENTOLIN HFA) 90 mcg/actuation inhaler Inhale 2 Puffs as instructed every 4 hours as needed. - insulin lispro (HUMALOG KWIKPEN INSULIN) 100 unit/mL Inject 20 Units subcutaneously three times a day before meals. Getting through [facility] - dilTIAZem CD (CARDIZEM CD, CARTIA XT) [...] mouth every 12 hours. Prescribed by outside envelope folder - insulin glargine (BASAGLAR KWIKPEN U-100 INSULIN) [...] of 08/20/2013: Problem List As Of Date 08/18/2024 Noted Resolved OTHER PSORIASIS [L40.8] 05/11/2005 Essential [...] 06/06/2023 Diagnosed: 06/06/2023 History of colonic polyps [Z (more content not included)... [facility] E[facility] Leslee ([id number]) 1945 M Date Time Provider Department 08/15/24 MATHIEU VIRGEN [facility] During your visit today, we recorded the following information about you: Angelina Bliss RN 08/15/2024 9:05 AM Signed Summer calling with [employer], the company assisting patient with [employer] G7 CGM. Requesting recent OV note to further proceed with pt's CGM order. Faxed as requested to [phone]. Angelina Bliss RN Allergies As of Date: 08/15/2024 Noted Allergy Reaction AMOXICILLIN 05/11/2005 Comments: generalized erythema Date Reviewed: 07/29/2024 Reviewed by: Julianna Hood APRN.RN ORTHOPAEDIC - Fully Assessed Reason for Visit: CGM Order [Other] Prescriptions as of 08/15/2024 - OXYGEN, HOME THERAPY, 2 L/min by Nasal Cannula route continuous. - famotidine (PEPCID) 20 mg tablet Take 1 tablet by mouth two times a day. - OTC NUTRITIONAL SUPPLEMENT NUVOFLEX - TURMERIC ORAL Take by mouth. - tamsulosin (FLOMAX) 0.4 mg Take 1 capsule by mouth every 12 hours. - solifenacin 10 mg tablet Take 1 tablet by mouth every afternoon. - furosemide (LASIX) 40 mg tablet Take 1 tablet by mouth once daily. - empagliflozin (JARDIANCE) 25 mg tablet Take 1 tablet by mouth once daily. Take 1 tablet once daily in the morning - losartan (COZAAR) 100 mg tablet Take 1 tablet by mouth once daily. - cyanocobalamin (VITAMIN B-12) 1,000 mcg tab Take 1 tablet by mouth once daily. - carvedilol (COREG) 25 mg tablet Take 1 tablet by mouth two times a day. - ELIQUIS 5 mg tab(s) Take 1 tablet by mouth two times a day. - Blood-Glucose Meter,Continuous (FREESTYLE MARIELLE 3 READER) [facility] Use to check blood sugar at least four (4) times daily. Uses insulin - Blood-Glucose Sensor (FREESTYLE MARIELLE 3 PLUS SENSOR) sayra Apply new sensor every fifteen (15) days to upper arm. - colestipol (COLESTID) 1 gram tablet Take 1 tablet by mouth once daily. - losartan-hydroCHLOROth iazide (HYZAAR) 100-12.5 mg per tablet Take 1 tablet by mouth once daily. - albuterol HFA (VENTOLIN HFA) 90 mcg/actuation inhaler Inhale 2 Puffs as instructed every 4 hours as needed. - insulin lispro (HUMALOG KWIKPEN INSULIN) 100 unit/mL Inject 20 Units subcutaneously three times a day before meals. Getting through [facility] - dilTIAZem CD (CARDIZEM CD, CARTIA XT) [...] mouth every 12 hours. Prescribed by outside envelope folder - insulin glargine (BASAGLAR KWIKPEN U-100 INSULIN) [...] of 08/20/2013: Problem List As Of Date 08/15/2024 Noted Resolved OTHER PSORIASIS [L40.8] 05/11/2005 Essential [...] 06/06/2023 Hyperlipidemia [E78.5] 06/06/2023 Diagnosed: 06/06/2023 Left low (more content not included)... Normal [facility] Cardiology Visit Reporton Cardiology Visit Report Normal [facility] Absolute neutrophil countOrd ered By: Sergey Carreon on 08-11-2024 Neutrophils (Bld) [#/Vol] 8.0 10*3/uL High 2.0-7.7 [facility] Albumin to globulin ratioOrd ered By: Sergey Carreon on 08-11-2024 Albumin/Globulin [Mass ratio] 0.9 {ratio} 0.9-2.4 [facility] Basophil percentageOrdered B y: Sergey Carreon on 08-11-2024 Basophils/100 WBC (Bld) 0.4 % 0-1 [facility] Bilirubin, totalOrdered By: Sergey Carreon on 08-11-2024 Bilirubin [Mass/Vol] 0.30 mg/dL 0.20-1.00 [facility] Comment on above: For patients on eltr ombopag therapy, use of Dimension Pierre TBIL is not recommended. Blood urea nitrogen (BUN)/cr eatinine ratioOrdered By: Sergey Carreon on 08-11-2024 Urea nitrogen/Creatinine [Mass ratio] 25.5 mg/mg High 07-06 [facility] CBC W/Diff, Automatedon 07-19 Absolute Lymph 1.24 X10 3/uL Normal 0.83-4.51 [facility] Comment on above: Performed By: #### L 501.5200, L501.9520, L100.0100, L500.4050 ####[facility] [address] [place], [address] Absolute Neut 8.0 X10 3/uL High 2.0-7.7 [facility] Comment on above: Performed By: #### L 501.5200, L501.9520, L100.0100, L500.4050 ####[facility] [address] [place], [address] Basophils/100 WBC (Bld) 0.4 % Normal 0-1 [facility] Comment on above: Performed By: #### L 501.5200, L501.9520, L100.0100, L500.4050 ####[facility] [address] [place], [address] Eosinophils/100 WBC (Bld) 2.3 % Normal 0-5 [facility] Comment on above: Performed By: #### L 501.5200, L501.9520, L100.0100, L500.4050 ####[facility] [address] [place], [address] Erythrocyte distribution width (RBC) [Ratio] 14.5 % Normal 11.6-14.6 [facility] Comment on above: Performed By: #### L 501.5200, L501.9520, L100.0100, L500.4050 ####[facility] [address] [place], [address] Hematocrit (Bld) [Volume fraction] 42.3 % Normal 40-54 [facility] Comment on above: Performed By: #### L 501.5200, L501.9520, L100.0100, L500.4050 ####[facility] [address] [place], [address] Hemoglobin (Bld) [Mass/Vol] 13.4 g/dL Normal 13.0-16. 5 [facility] Comment on above: Performed By: #### L 501.5200, L501.9520, L100.0100, L500.4050 ####[facility] [address] [place], [address] IG% 0.500 Normal 0.0-0.9 [facility] Comment on above: Result Comment: IG% - Immature Granulocytes (promyelocytes, myelocytes andmetamyelocytes) > 1% indicates that a LEFT SHIFT is Present. Performed By: #### L 501.5200, L501.9520, L100.0100, L500.4050 ####[facility] [address] [place], [address] Lymphocytes/100 WBC (Bld) 11.8 % Low 19-41 [facility] Comment on above: Performed By: #### L 501.5200, L501.9520, L100.0100, L500.4050 ####[facility] [address] [place], [address] MCH (RBC) [Entitic mass] 26.4 pg Low 27.0-32.0 [facility] Comment on above: Performed By: #### L 501.5200, L501.9520, L100.0100, L500.4050 ####[facility] [address] [place], [address] MCHC (RBC) [Mass/Vol] 31.7 g/dL Low 32-36 [facility] Comment on above: Performed By: #### L 501.5200, L501.9520, L100.0100, L500.4050 ####[facility] [address] [place], [address] MCV (RBC) [Entitic vol] 83.3 fL Normal 80-94 [facility] Comment on above: Performed By: #### L 501.5200, L501.9520, L100.0100, L500.4050 ####[facility] [address] [place], [address] Monocytes/100 WBC (Bld) 9.3 % Normal 0-10 [facility] Comment on above: Performed By: #### L 501.5200, L501.9520, L100.0100, L500.4050 ####[facility] [address] [place], [address] Neutrophils/100 WBC (Bld) 75.7 % High 47-70 [facility] Comment on above: Performed By: #### L 501.5200, L501.9520, L100.0100, L500.4050 ####[facility] [address] [place], [address] Nucleated RBC (Bld) [#/Vol] 0 10*3/uL Normal 0-5 [facility] Comment on above: Performed By: #### L 501.5200, L501.9520, L100.0100, L500.4050 ####[facility] [address] [place], [address] Platelet mean volume (Bld) [Entitic vol] 11.4 fL Normal 6.2-12.0 [facility] Comment on above: Performed By: #### L 501.5200, L501.9520, L100.0100, L500.4050 ####[facility] [address] [place], [address] Platelets (Bld) [#/Vol] 241 10*3/uL Normal 150-450 [facility] Comment on above: Performed By: #### L 501.5200, L501.9520, L100.0100, L500.4050 ####[facility] [address] [place], [address] RBC (Bld) [#/Vol] 5.08 10*6/uL Normal 4.6-6.2 [facility] Comment on above: Performed By: #### L 501.5200, L501.9520, L100.0100, L500.4050 ####[facility] [address] [place], [address] RDW SD 43.5 fl Normal 35.1-43.9 [facility] Comment on above: Performed By: #### L 501.5200, L501.9520, L100.0100, L500.4050 ####[facility] [address] [place], [address] WBC (Bld) [#/Vol] 10.6 10*3/uL Normal 4.4-11.0 [facility] Comment on above: Performed By: #### L 501.5200, L501.9520, L100.0100, L500.4050 ####[facility] [address] [place], [address] [facility] FAISAL ALARCON ([id number]) 1945 Date Time Provider Department 08/11/24 MATHIEU VIRGEN [facility] During your visit today, we recorded the following information about you: Tammy Davies LPN 08/11/2024 1:12 PM Signed Patient daughter Farida raymond father is very pale, weak, has dizziness, nausea, voice hoarse, feels like he could vomit, says he is not feeling well at all for the past 2 days. He is not eating or drinking any fluids. Advised that he would need evaluated, needs to go to the ER probably will need IV fluids. Aware note is being sent to his PCP. Mathieu Virgen MD 08/11/2024 1:42 PM Signed agree Allergies As of Date: 08/11/2024 Noted Allergy Reaction AMOXICILLIN 05/11/2005 Comments: generalized erythema Date Reviewed: 07/29/2024 Reviewed by: Julianna Hood APRN.RN ORTHOPAEDIC - Fully Assessed Reason for Visit: Patient Update [1234] Prescriptions as of 08/11/2024 - OXYGEN, HOME THERAPY, 2 L/min by Nasal Cannula route continuous. - famotidine (PEPCID) 20 mg tablet Take 1 tablet by mouth two times a day. - OTC NUTRITIONAL SUPPLEMENT NUVOFLEX - TURMERIC ORAL Take by mouth. - tamsulosin (FLOMAX) 0.4 mg Take 1 capsule by mouth every 12 hours. - solifenacin 10 mg tablet Take 1 tablet by mouth every afternoon. - furosemide (LASIX) 40 mg tablet Take 1 tablet by mouth once daily. - empagliflozin (JARDIANCE) 25 mg tablet Take 1 tablet by mouth once daily. Take 1 tablet once daily in the morning - losartan (COZAAR) 100 mg tablet Take 1 tablet by mouth once daily. - cyanocobalamin (VITAMIN B-12) 1,000 mcg tab Take 1 tablet by mouth once daily. - carvedilol (COREG) 25 mg tablet Take 1 tablet by mouth two times a day. - ELIQUIS 5 mg tab(s) Take 1 tablet by mouth two times a day. - Blood-Glucose Meter,Continuous (FREESTYLE MARIELLE 3 READER) [facility] Use to check blood sugar at least four (4) times daily. Uses insulin - Blood-Glucose Sensor (FREESTYLE MARIELLE 3 PLUS SENSOR) sayra Apply new sensor every fifteen (15) days to upper arm. - colestipol (COLESTID) 1 gram tablet Take 1 tablet by mouth once daily. - losartan-hydroCHLOROth iazide (HYZAAR) 100-12.5 mg per tablet Take 1 tablet by mouth once daily. - albuterol HFA (VENTOLIN HFA) 90 mcg/actuation inhaler Inhale 2 Puffs as instructed every 4 hours as needed. - insulin lispro (HUMALOG KWIKPEN INSULIN) 100 unit/mL Inject 20 Units subcutaneously three times a day before meals. Getting through [employer] - dilTIAZem CD (CARDIZEM CD, CARTIA XT) [...] mouth every 12 hours. Prescribed by outside envelope folder - insulin glargine (BASAGLAR KWIKPEN U-100 INSULIN) [...] of 08/20/2013: Problem List As Of Date 08/11/2024 Noted Resolved OTHER PSORIASIS [L40.8] 05/11/2005 Essential [...] 06/06/2023 06/06/2023 Diagnosed: 06/06/2023 History of atrial fibrillatio (more content not included)... Normal [facility] Carbon dioxide measurementOr dered By: Sergey Carreon on 08-11-2024 CO2 [Moles/Vol] 25.0 mmol/L 21.0-32.0 [facility] Chloride measurementOrdered By: Sergey Carreon on 08-11-2024 Chloride [Moles/Vol] 104 mmol/L 98-107 [facility] Comprehensive Metabolic Prof ilon 08-11-2024 Albumin [Mass/Vol] 3.6 g/dL Normal 3.2-5.0 [facility] Comment on above: Performed By: #### L 501.5200, L501.9520, L100.0100, L500.4050 ####[facility] [address] [place], [address] Albumin/Globulin [Mass ratio] 0.9 {ratio} Normal 0.9-2.4 [facility] Comment on above: Performed By: #### L 501.5200, L501.9520, L100.0100, L500.4050 ####[facility] [address] [place], [address] ALK P 91 U/L Normal 45-117 [facility] Comment on above: Performed By: #### L 501.5200, L501.9520, L100.0100, L500.4050 ####[facility] [address] [place], [address] ALT [Catalytic activity/Vol] 19 U/L Normal 16-61 [facility] Comment on above: Performed By: #### L 501.5200, L501.9520, L100.0100, L500.4050 ####[facility] [address] [place], [address] AST [Catalytic activity/Vol] 14 U/L Low 15-37 [facility] Comment on above: Performed By: #### L 501.5200, L501.9520, L100.0100, L500.4050 ####[facility] [address] [place], [address] Bilirubin [Mass/Vol] 0.30 mg/dL Normal 0.20-1.00 [facility] Comment on above: Result Comment: For patients on eltrombopag therapy, use of Dimension Pierre TBIL is not recommended. Performed By: #### L 501.5200, L501.9520, L100.0100, L500.4050 ####[facility] [address] [place], [address] BUN/CRE 25.5 RATIO High 10-20 [facility] Comment on above: Performed By: #### L 501.5200, L501.9520, L100.0100, L500.4050 ####[facility] [address] [place], [address] CA,Total 9.6 mg/dL Normal 8.5-10.1 [facility] Comment on above: Performed By: #### L 501.5200, L501.9520, L100.0100, L500.4050 ####[facility] [address] [place], [address] Chloride [Moles/Vol] 104 mmol/L Normal 98-107 [facility] Comment on above: Performed By: #### L 501.5200, L501.9520, L100.0100, L500.4050 ####[facility] [address] [place], [address] CO2 [Moles/Vol] 25.0 mmol/L Normal 21.0-32.0 [facility] Comment on above: Performed By: #### L 501.5200, L501.9520, L100.0100, L500.4050 ####[facility] [address] [place], [address] Creatinine [Mass/Vol] 1.37 mg/dL High 0.70-1.30 [facility] Comment on above: Result Comment: The validity of the calculated GFR GFRAA in patients over70 years has not been determined. Clinical correlation isessential. Performed By: #### L 501.5200, L501.9520, L100.0100, L500.4050 ####[facility] [address] [place], [address] EST GFR - AA 64 mL/min Normal >60 [facility] Comment on above: Result Comment: Afri can Malagasy GFR Calc Performed By: #### L 501.5200, L501.9520, L100.0100, L500.4050 ####[facility] [address] [place], [address] GAP 8 Normal 5-15 [facility] Comment on above: Performed By: #### L 501.5200, L501.9520, L100.0100, L500.4050 ####[facility] [address] [place], [address] GFR/1.73 sq M.predicted among non-blacks MDRD (S/P/Bld) [Vol rate/Area] 53 mL/min/{1.73_m2} Low >60 [facility] Comment on above: Result Comment: Non- GFR Calc Performed By: #### L 501.5200, L501.9520, L100.0100, L500.4050 ####[facility] [address] [place], [address] Globulin (S) [Mass/Vol] 3.9 g/dL Normal 2.2-4.2 [facility] Comment on above: Performed By: #### L 501.5200, L501.9520, L100.0100, L500.4050 ####[facility] [address] [place], [address] Glucose [Mass/Vol] 168 mg/dL High 74-106 [facility] Comment on above: Result Comment: Fast ing Glucose result greater than or equal to 126 mg/dLsuggests DIABETES MELLITUS per A.D.A. criteria. Performed By: #### L 501.5200, L501.9520, L100.0100, L500.4050 ####[facility] [address] [place], [address] Potassium [Moles/Vol] 4.2 mmol/L Normal 3.5-5.1 [facility] Comment on above: Performed By: #### L 501.5200, L501.9520, L100.0100, L500.4050 ####[facility] [address] [place], [address] Sodium [Moles/Vol] 136 mmol/L Normal 136-145 [facility] Comment on above: Performed By: #### L 501.5200, L501.9520, L100.0100, L500.4050 ####[facility] [address] [place], [address] T PROT 7.5 g/dL Normal 6.4-8.2 [facility] Comment on above: Performed By: #### L 501.5200, L501.9520, L100.0100, L500.4050 ####[facility] [address] [place], [address] Urea nitrogen [Mass/Vol] 35 mg/dL High 7-18 [facility] Comment on above: Performed By: #### L 501.5200, L501.9520, L100.0100, L500.4050 ####[facility] [address] [place], [address] Eosinophil percentageOrdered By: Sergey Carreon on 08-11-2024 Eosinophils/100 WBC (Bld) 2.3 % 0-5 [facility] Erythrocyte distribution wid th ratioOrdered By: Sergey Carreon on 08-11-2024 Erythrocyte distribution width (RBC) [Ratio] 14.5 % 11.6-14.6 [facility] Erythrocyte distribution wid th standard deviationOrdered By: Sergey Carreon on 08-11-2024 Erythrocyte distribution width (RBC) [Entitic vol] 43.5 fL 35.1-43.9 [facility] Estimated glomerular filtrat ion rate (GFR) AmericanOrdered By: Sergey Carreon on 08-11-2024 Estimated GFR (MDRD) Amer 64 mL/min >60 [facility] Comment on above: GFR Calc Glomerular filtration rate ( GFR) estimationOrdered By: Sergey Carreon on 08-11-2024 Estimated GFR (MDRD) Non-Af Amer 53 mL/min Low >60 [facility] Comment on above: Non- GFR Calc Glucose measurementOrdered B y: Sergey Carreon on 08-11-2024 Glucose [Mass/Vol] 168 mg/dL High 74-106 [facility] Comment on above: Fasting Glucose resu lt greater than or equal to 126 mg/dL suggests DIABETES MELLITUS per A.D.A. criteria. Hematocrit Auto (Bld) [Volum e fraction]Ordered By: Sergey Carreon on 08-11-2024 Hematocrit (Bld) [Volume fraction] 42.3 % 40-54 [facility] Hemoglobin measurementOrdere d By: Sergey Carreon on 08-11-2024 Hemoglobin (Bld) [Mass/Vol] 13.4 g/dL 13.0-16. 5 [facility] Immature granulocytes/100 WB C Auto (Bld)Ordered By: Sergey Carreon on 08-11-2024 Immature granulocytes/100 WBC (Bld) 0.500 % 0.0-0.9 [facility] Comment on above: IG% - Immature Granu locytes (promyelocytes, myelocytes and metamyelocytes) > 1% indicates that a LEFT SHIFT is Present. Laboratory - Chemistry and C hemistry - challengeOrdered By: Sergey Carreon on 08-11-2024 AST [Catalytic activity/Vol] 14 U/L Low 15-37 [facility] Lymphocytes Auto (Unsp spec) [#/Vol]Ordered By: Sergey Carreon on 08-11-2024 Lymphocytes (Bld) [#/Vol] 1.24 10*3/uL 0.83-4.5 1 [facility] Lymphocytes/100 WBC Auto (Un sp spec)Ordered By: Sergey Carreon on 08-11-2024 Lymphocytes/100 WBC (Bld) 11.8 % Low 19-41 [facility] MCV (mean corpuscular volume ) determinationOrdered By: Sergey Carreon on 08-11-2024 MCV (RBC) [Entitic vol] 83.3 fL 80-94 [facility] Magnesiumon 08-11-2024 Magnesium [Mass/Vol] 2.2 mg/dL Normal 1.6-2.6 [facility] Comment on above: Performed By: #### L 501.5200, L501.9520, L100.0100, L500.4050 ####[facility] [address] [place], [address] Magnesium measurementOrdered By: Sergey Carreon on 08-11-2024 Magnesium [Mass/Vol] 2.2 mg/dL 1.6-2.6 [facility] Mean corpuscular hemoglobin (MCH) determinationOrdered By: Sergey Carreon on 08-11-2024 MCH (RBC) [Entitic mass] 26.4 pg Low 27.0-32.0 [facility] Mean corpuscular hemoglobin concentration (MCHC) determinationOrdered By: Sergey Carreon on 08-11-2024 MCHC (RBC) [Mass/Vol] 31.7 g/dL Low 32-36 [facility] Mean platelet volume determi nationOrdered By: Sergey Carreon on 08-11-2024 Platelet mean volume (Bld) [Entitic vol] 11.4 fL 6.2-12.0 [facility] Monocyte percentageOrdered B y: Sergey Carreon on 08-11-2024 Monocytes/100 WBC (Bld) 9.3 % 0-10 [facility] Neutrophil percentageOrdered By: Sergey Carreon on 08-11-2024 Neutrophils/100 WBC (Bld) 75.7 % High 47-70 [facility] Nucleated red blood cell per centageOrdered By: Sergey Carreon on 08-11-2024 Nucleated RBC/100 WBC (Bld) [Ratio] 0 % 0-5 [facility] Platelet countOrdered By: Marcelina Carreon on 08-11-2024 Platelets (Bld) [#/Vol] 241 10*3/uL 150-450 [facility] Potassium measurementOrdered By: Sergey Carreon on 08-11-2024 Potassium [Moles/Vol] 4.2 mmol/L 3.5-5.1 [facility] RBC Auto (Bld) [#/Vol]Ordere d By: Sergey Carreon on 08-11-2024 RBC (Bld) [#/Vol] 5.08 10*6/uL 4.6-6.2 [facility] Serum anion gap measurementO rdered By: Sergey Carreon on 08-11-2024 Anion gap [Moles/Vol] 8 mmol/L 5-15 [facility] Serum globulin measurementOr dered By: Sergey Carreon on 08-11-2024 Globulin (S) [Mass/Vol] 3.9 g/dL 2.2-4.2 [facility] Serum or plasma alanine cottrell otransferase (ALT) measurementOrdered By: Sergey Carreon on 08-11-2024 ALT [Catalytic activity/Vol] 19 U/L 16-61 [facility] Serum or plasma albumin nahomy urement (mass/volume)Ordered By: Sergey Carreon on 08-11-2024 Albumin [Mass/Vol] 3.6 g/dL 3.2-5.0 [facility] Serum or plasma alkaline ahsan sphatase measurementOrdered By: Sergey Carreon on 08-11-2024 ALP [Catalytic activity/Vol] 91 U/L 45-117 [facility] Serum or plasma calcium nahomy urement (mass/volume)Ordered By: Sergey Carreon on 08-11-2024 Calcium [Mass/Vol] 9.6 mg/dL 8.5-10.1 [facility] Serum or plasma creatinine m easurement (mass/volume)Ordered By: Sergey Carreon on 08-11-2024 Creatinine [Mass/Vol] 1.37 mg/dL High 0.70-1.30 [facility] Comment on above: The validity of the calculated GFR & GFRAA in patients over 70 years has not been determined. Clinical correlation is essential. Serum or plasma urea nitroge n measurement (mass/volume)Ordered By: Sergey Carreon on 08-11-2024 Urea nitrogen [Mass/Vol] 35 mg/dL High 7-18 [facility] Sodium levelOrdered By: Sergey Carreon on 08-11-2024 Sodium [Moles/Vol] 136 mmol/L 136-145 [facility] TSH QnOrdered By: Sergey Carreon on 08-11-2024 Thyroid Stimulating Hormone (TSH) 1.250 uIU/mL 0.358-3.740 [facility] Thyroid Stim Hormone (TSH)on 08-11-2024 TSH 1.250 uIU/mL Normal 0.358-3.740 [facility] Comment on above: Performed By: #### L 501.5200, L501.9520, L100.0100, L500.4050 ####[facility] [address] [place], [address] Total proteinOrdered By: Morgan Carreon on 08-11-2024 Protein [Mass/Vol] 7.5 g/dL 6.4-8.2 [facility] White blood cell (WBC) count Ordered By: Sergey Carreon on 08-11-2024 WBC (Bld) [#/Vol] 10.6 10*3/uL 4.4-11.0 [facility] Basic Metabolic Profile (BMP )on 07-31-2024 BUN/CRE 17.5 RATIO Normal 10-20 [facility] Comment on above: Performed By: #### L 501.5200, L500.2500, L100.0100 ####[facility] [address] [place], [address] CA,Total 9.0 mg/dL Normal 8.5-10.1 [facility] Comment on above: Performed By: #### L 501.5200, L500.2500, L100.0100 ####[facility] [address] [place], [address] Chloride [Moles/Vol] 107 mmol/L Normal 98-107 [facility] Comment on above: Performed By: #### L 501.5200, L500.2500, L100.0100 ####[facility] [address] [place], [address] CO2 [Moles/Vol] 27.0 mmol/L Normal 21.0-32.0 [facility] Comment on above: Performed By: #### L 501.5200, L500.2500, L100.0100 ####[facility] [address] [place], [address] Creatinine [Mass/Vol] 1.26 mg/dL Normal 0.70-1.30 [facility] Comment on above: Result Comment: The validity of the calculated GFR GFRAA in patients over70 years has not been determined. Clinical correlation isessential. Performed By: #### L 501.5200, L500.2500, L100.0100 ####[facility] [address] [place], [address] EST GFR - AA 71 mL/min Normal >60 [facility] Comment on above: Result Comment: Afri can Malagasy GFR Calc Performed By: #### L 501.5200, L500.2500, L100.0100 ####[facility] [address] [place], [address] GAP 7 Normal 5-15 [facility] Comment on above: Performed By: #### L 501.5200, L500.2500, L100.0100 ####[facility] [address] [place], [address] GFR/1.73 sq M.predicted among non-blacks MDRD (S/P/Bld) [Vol rate/Area] 59 mL/min/{1.73_m2} Low >60 [facility] Comment on above: Result Comment: Non- GFR Calc Performed By: #### L 501.5200, L500.2500, L100.0100 ####[facility] [address] [place], [address] Glucose [Mass/Vol] 119 mg/dL High 74-106 [facility] Comment on above: Result Comment: Fast ing Glucose result from 100 to 125 mg/dLsuggests IMPAIRED HOMEOSTASIS per A.D.A. criteria. Performed By: #### L 501.5200, L500.2500, L100.0100 ####[facility] [address] [place], [address] Potassium [Moles/Vol] 3.6 mmol/L Normal 3.5-5.1 [facility] Comment on above: Performed By: #### L 501.5200, L500.2500, L100.0100 ####[facility] [address] [place], [address] Sodium [Moles/Vol] 141 mmol/L Normal 136-145 [facility] Comment on above: Performed By: #### L 501.5200, L500.2500, L100.0100 ####[facility] [address] [place], [address] Urea nitrogen [Mass/Vol] 22 mg/dL High 7-18 [facility] Comment on above: Performed By: #### L 501.5200, L500.2500, L100.0100 ####[facility] [address] [place], [address] CBC W/Diff, Automatedon 11-1 Absolute Lymph 1.13 X10 3/uL Normal 0.83-4.51 [facility] Comment on above: Performed By: #### L 501.5200, L500.2500, L100.0100 ####[facility] [address] [place], [address] Absolute Neut 6.1 X10 3/uL Normal 2.0-7.7 [facility] Comment on above: Performed By: #### L 501.5200, L500.2500, L100.0100 ####[facility] [address] [place], [address] Basophils/100 WBC (Bld) 0.4 % Normal 0-1 [facility] Comment on above: Performed By: #### L 501.5200, L500.2500, L100.0100 ####[facility] [address] [place], [address] Eosinophils/100 WBC (Bld) 2.6 % Normal 0-5 [facility] Comment on above: Performed By: #### L 501.5200, L500.2500, L100.0100 ####[facility] [address] [place], [address] Erythrocyte distribution width (RBC) [Ratio] 14.1 % Normal 11.6-14.6 [facility] Comment on above: Performed By: #### L 501.5200, L500.2500, L100.0100 ####[facility] [address] [place], [address] Hematocrit (Bld) [Volume fraction] 38.0 % Low 40-54 [facility] Comment on above: Performed By: #### L 501.5200, L500.2500, L100.0100 ####[facility] [address] [place], [address] Hemoglobin (Bld) [Mass/Vol] 11.8 g/dL Low 13.0-16. 5 [facility] Comment on above: Performed By: #### L 501.5200, L500.2500, L100.0100 ####[facility] [address] [place], [address] IG% 0.200 Normal 0.0-0.9 [facility] Comment on above: Result Comment: IG% - Immature Granulocytes (promyelocytes, myelocytes andmetamyelocytes) > 1% indicates that a LEFT SHIFT is Present. Performed By: #### L 501.5200, L500.2500, L100.0100 ####[facility] [address] [place], [address] Lymphocytes/100 WBC (Bld) 13.3 % Low 19-41 [facility] Comment on above: Performed By: #### L 501.5200, L500.2500, L100.0100 ####[facility] [address] [place], [address] MCH (RBC) [Entitic mass] 26.3 pg Low 27.0-32.0 [facility] Comment on above: Performed By: #### L 501.5200, L500.2500, L100.0100 ####[facility] [address] [place], [address] MCHC (RBC) [Mass/Vol] 31.1 g/dL Low 32-36 [facility] Comment on above: Performed By: #### L 501.5200, L500.2500, L100.0100 ####[facility] [address] [place], [address] MCV (RBC) [Entitic vol] 84.8 fL Normal 80-94 [facility] Comment on above: Performed By: #### L 501.5200, L500.2500, L100.0100 ####[facility] [address] [place], [address] Monocytes/100 WBC (Bld) 11.5 % High 0-10 [facility] Comment on above: Performed By: #### L 501.5200, L500.2500, L100.0100 ####[facility] [address] [place], [address] Neutrophils/100 WBC (Bld) 72.0 % High 47-70 [facility] Comment on above: Performed By: #### L 501.5200, L500.2500, L100.0100 ####[facility] [address] [place], [address] Nucleated RBC (Bld) [#/Vol] 0 10*3/uL Normal 0-5 [facility] Comment on above: Performed By: #### L 501.5200, L500.2500, L100.0100 ####[facility] [address] [place], [address] Platelet mean volume (Bld) [Entitic vol] 11.4 fL Normal 6.2-12.0 [facility] Comment on above: Performed By: #### L 501.5200, L500.2500, L100.0100 ####[facility] [address] [place], [address] Platelets (Bld) [#/Vol] 282 10*3/uL Normal 150-450 [facility] Comment on above: Performed By: #### L 501.5200, L500.2500, L100.0100 ####[facility] [address] [place], [address] RBC (Bld) [#/Vol] 4.48 10*6/uL Low 4.6-6.2 [facility] Comment on above: Performed By: #### L 501.5200, L500.2500, L100.0100 ####[facility] [address] [place], [address] RDW SD 43.7 fl Normal 35.1-43.9 [facility] Comment on above: Performed By: #### L 501.5200, L500.2500, L100.0100 ####[facility] [address] [place], [address] WBC (Bld) [#/Vol] 8.5 10*3/uL Normal 4.4-11.0 [facility] Comment on above: Performed By: #### L 501.5200, L500.2500, L100.0100 ####[facility] [address] [place], [address] [facility] FA[facility] ([id number]) 1945 M Date Time Provider Department 07/31/24 [facility] During your visit today, we recorded the following information about you: Julianna Hood APRN.CNP 07/31/2024 5:32 PM Signed Lab work done July 31, 2024: Sodium 141, potassium 3.6, BUN 22, creatinine 1.26, glucose 119 WBC 8.5, hemoglobin 11.8, hematocrit 38.0, platelet count 282 Neutrophils elevated 72, monocytes elevated 11.5 Magnesium 2.9 Please let patient know that his anemia is a little worse and kidney function is slightly worse. Please report any black tarry stools or bright red bleeding. Also, magnesium is high. Stop any magnesium supplements. Janet King MA 08/01/2024 11:26 AM Signed Daughter, Farida, notified of results. Advised her of provider message to keep eye out for tarry, black stools or bright, red blood. She is agreeable with plan. Patient has follow up scheduled in October. Janet King MA August 01, 2024 11:26 AM Allergies As of Date: 07/31/2024 Noted Allergy Reaction AMOXICILLIN 05/11/2005 Comments: generalized erythema Date Reviewed: 07/29/2024 Reviewed by: Julianna Hood APRN.CNP - Fully Assessed Prescriptions as of 08/01/2024 - OTC NUTRITIONAL SUPPLEMENT NUVOFLEX - TURMERIC ORAL Take by mouth. - tamsulosin (FLOMAX) 0.4 mg Take 1 capsule by mouth every 12 hours. - solifenacin 10 mg tablet Take 1 tablet by mouth every afternoon. - furosemide (LASIX) 40 mg tablet Take 1 tablet by mouth once daily. - empagliflozin (JARDIANCE) 25 mg tablet Take 1 tablet by mouth once daily. Take 1 tablet once daily in the morning - losartan (COZAAR) 100 mg tablet Take 1 tablet by mouth once daily. - cyanocobalamin (VITAMIN B-12) 1,000 mcg tab Take 1 tablet by mouth once daily. - carvedilol (COREG) 25 mg tablet Take 1 tablet by mouth two times a day. - ELIQUIS 5 mg tab(s) Take 1 tablet by mouth two times a day. - Blood-Glucose Meter,Continuous (FREESTYLE MARIELLE 3 READER) [facility] Use to check blood sugar at least four (4) times daily. Uses insulin - Blood-Glucose Sensor (FREESTYLE MARIELLE 3 PLUS SENSOR) sayra Apply new sensor every fifteen (15) days to upper arm. - colestipol (COLESTID) 1 gram tablet Take 1 tablet by mouth once daily. - losartan-hydroCHLOROth iazide (HYZAAR) 100-12.5 mg per tablet Take 1 tablet by mouth once daily. - albuterol HFA (VENTOLIN HFA) 90 mcg/actuation inhaler Inhale 2 Puffs as instructed every 4 hours as needed. - famotidine (PEPCID) 20 mg tablet Take 1 tablet by mouth two times a day. - insulin lispro (HUMALOG KWIKPEN INSULIN) 100 unit/mL Inject 20 Units subcutaneously three times a day before meals. Getting through [facility] - dilTIAZem CD (CARDIZEM CD, CARTIA XT) [...] mouth every 12 hours. Prescribed by outside envelope folder - insulin glargine (BASAGLAR KWIKPEN U-100 INSULIN) [...] of 08/20/2013: Problem List As Of Date 07/31/2024 Noted Resolved OTHER PSORIASIS [L40.8] 05/11/2005 Essential [...] 05/06/2021 Paroxysmal atrial fibrillation (HCC) [I48.0] 02/15/2021 (more content not included)... Normal [facility] Pulido Magnesiumon 07-31-2024 Magnesium [Mass/Vol] 2.9 mg/dL High 1.6-2.6 [facility] Comment on above: Performed By: #### L 501.5200, L500.2500, L100.0100 ####[facility] [address] [place], [address] Pulmonary Visit Reporton Pulmonary Visit Report Normal [facility] CNOVon 07-29-2024 CNOV Office Visit (FAMPWS ) FAISAL ALARCON ([id number]) 1945 M Date Time Provider Department 07/29/24 11:20 AM [facility] During your visit today, we recorded the following information about you: Pulse Respiration Blood pressure Weight 70/minute 24/minute 104/50 135.2 kg Julianna Hood APRN.[facility] 07/31/2024 12:43 PM Addendum This is a 79 year old male who presents today with: No chief complaint on file. HISTORY OF PRESENT ILLNESS: Faisal Alarcon is a 79 year old male. No chief complaint on file. Pt. States he had been SOB that was increasing. Went to hospital and found that his heart was weak, Went to urology appt. And they sent him to ER. Feeling a little better since he was sent home. Oxygen has really helped. Wearing it continuous. 2 L continuous. No PND or orthopnea Denies palpitations. Lightheadedness on occasion but improved. No chest pain or pressure. No nausea. No constipation. Admitted to [facility] w/ pulmonary edeam, hypoxia Echo showed EF 70%, stage II diastolic dysfunction Okay I think so yeah looks severe atrial enlargement, mild tricuspid valve insufficiency, right ventricular systolic pressure of 50 mmHg with mild aortic stenosis. He was given IV Lasix, fluid restriction, sodium restriction, daily weights, supplemental oxygen. He was placed on supplemental oxygen with oxygen dropping to 86% with exertion. Daughter says 87 at home with exertion. Brain natruretic peptide was only mildly increased. Leukocytosis- WBC was elevated on discharge but no signs of infection. COVID, flu, respiratory viral panels are unremarkable and urinalysis is not consistent with infection Mild anemia with stable-no workup Blood sugars remain elevated. Home on oral agents and has home insulin. Jardiance was added both the benefit his heart failure and is high glucose. Sleep apnea does have sleep apnea but has been noncompliant. The CPAP machine that he has at home is his 's. Paroxysmal atrial fibrillation, continue carvedilol, Cardizem, flecainide, and DOAC Hypertension Overactive bladder BPH Bladder cancer s/p resection GERD Obesity DVT prophylaxis Medications were reconciled. Lab work: WBC 13.3, hemoglobin 12.3, hematocrit 38.3, platelet count 360 Sodium 138, potassium 3.2, BUN 37, creatinine 1.07, glucose 114 Patient was discharged on fluid restriction, low-fat, low-cholesterol with a 2 L or less daily intake of fluids and 3 g sodium diet, 1800-calorie ADA PAST MEDICAL HISTORY: PAST MEDICAL HISTORY Diagnosis [...] Amoxicillin MEDICATIONS Current Outpatient Medications Medication Sig losartan (COZAAR) 100 mg tablet Take 1 tablet by mouth every afternoon. JARDIANCE 25 mg tablet Take 25 mg by mouth daily with breakfast. furosemide (LASIX) 40 mg tablet Take 1 tablet by mouth every afternoon. OTC NUTRITIONAL SUPPLEMENT NUVOFLEX TURMERIC ORAL Take by mouth. tamsulosin (FLOMAX) 0.4 mg Take 1 capsule by mouth every 12 hours. solifenacin 10 mg tablet Take 1 tablet by mouth every afternoon. carvedilol (COREG) 25 mg tablet Take 1 tablet by mouth two times a day. ELIQUIS 5 mg tab(s) Take 1 tablet by mouth two times a day. Blood-Glucose Meter,Continuous (FREESTYLE MARIELLE 3 READER) [facility] Use to check blood sugar at least four (4) times daily. Uses insulin Blood-Glucose Sensor (FREESTYLE MARIELLE 3 PLUS SENSOR) sayra Apply new sensor every fifteen (15) days to upper arm. colestipol (COLESTID) 1 gram tablet Take 1 tablet by mouth once daily. albuterol HFA (VENTOLIN HFA) 90 mcg/actuation inhaler Inhale 2 Puffs as instructed every 4 hours as needed. famotidine (PEPCID) 20 mg tablet Take 1 tablet by mouth two times a day. insulin lispro (HUMALOG KWIKPEN INSULIN) 100 unit/mL Inject 20 Units subcutaneously three times a day before meals. Getting through [facility] (Patient taking differently: Inject 26 Units subcutaneously three times a day before meals. Getting through [facility]) dilTIAZem CD (CARDI (more content not included)... Normal [facility] CBC W/Diff, Automatedon 07-18 Absolute Lymph 1.39 X10 3/uL Normal 0.83-4.51 [facility] Comment on above: Performed By: #### L 503.2644, L503.0105, L100.0100, L506.0250, L503.6030 ####[facility] [address] [place], [place], [id number] Absolute Neut 7.2 X10 3/uL Normal 2.0-7.7 [facility] Comment on above: Performed By: #### L 503.6550, L503.0105, L100.0100, L506.0250, L503.6030 ####[facility] [address] [place], [address] Basophils/100 WBC (Bld) 0.4 % Normal 0-1 [facility] Comment on above: Performed By: #### L 503.6550, L503.0105, L100.0100, L506.0250, L503.6030 ####[facility] [address] [place], [address] Eosinophils/100 WBC (Bld) 3.0 % Normal 0-5 [facility] Comment on above: Performed By: #### L 503.6550, L503.0105, L100.0100, L506.0250, L503.6030 ####[facility] [address] [place], [address] Erythrocyte distribution width (RBC) [Ratio] 14.1 % Normal 11.6-14.6 [facility] Comment on above: Performed By: #### L 503.6550, L503.0105, L100.0100, L506.0250, L503.6030 ####[facility] [address] [place], [address] Hematocrit (Bld) [Volume fraction] 38.9 % Low 40-54 [facility] Comment on above: Performed By: #### L 503.6550, L503.0105, L100.0100, L506.0250, L503.6030 ####[facility] [address] [place], [address] Hemoglobin (Bld) [Mass/Vol] 12.1 g/dL Low 13.0-16. 5 [facility] Comment on above: Performed By: #### L 503.6550, L503.0105, L100.0100, L506.0250, L503.6030 ####[facility] [address] [place], [address] IG% 0.400 Normal 0.0-0.9 [facility] Comment on above: Result Comment: IG% - Immature Granulocytes (promyelocytes, myelocytes andmetamyelocytes) > 1% indicates that a LEFT SHIFT is Present. Performed By: #### L 503.6550, L503.0105, L100.0100, L506.0250, L503.6030 ####[facility] [address] [place], [address] Lymphocytes/100 WBC (Bld) 13.8 % Low 19-41 [facility] Comment on above: Performed By: #### L 503.6550, L503.0105, L100.0100, L506.0250, L503.6030 ####[facility] [address] [place], [address] MCH (RBC) [Entitic mass] 26.1 pg Low 27.0-32.0 [facility] Comment on above: Performed By: #### L 503.6550, L503.0105, L100.0100, L506.0250, L503.6030 ####[facility] [address] [place], [address] MCHC (RBC) [Mass/Vol] 31.1 g/dL Low 32-36 [facility] Comment on above: Performed By: #### L 503.6550, L503.0105, L100.0100, L506.0250, L503.6030 ####[facility] [address] [place], [address] MCV (RBC) [Entitic vol] 84.0 fL Normal 80-94 [facility] Comment on above: Performed By: #### L 503.6550, L503.0105, L100.0100, L506.0250, L503.6030 ####[facility] [address] [place], [address] Monocytes/100 WBC (Bld) 10.6 % High 0-10 [facility] Comment on above: Performed By: #### L 503.6550, L503.0105, L100.0100, L506.0250, L503.6030 ####[facility] [address] [place], [address] Neutrophils/100 WBC (Bld) 71.8 % High 47-70 [facility] Comment on above: Performed By: #### L 503.6550, L503.0105, L100.0100, L506.0250, L503.6030 ####[facility] [address] [place], [address] Nucleated RBC (Bld) [#/Vol] 0 10*3/uL Normal 0-5 [facility] Comment on above: Performed By: #### L 503.6550, L503.0105, L100.0100, L506.0250, L503.6030 ####[facility] [address] [place], [address] Platelet mean volume (Bld) [Entitic vol] 10.6 fL Normal 6.2-12.0 [facility] Comment on above: Performed By: #### L 503.6550, L503.0105, L100.0100, L506.0250, L503.6030 ####[facility] [address] [place], [address] Platelets (Bld) [#/Vol] 321 10*3/uL Normal 150-450 [facility] Comment on above: Performed By: #### L 503.6550, L503.0105, L100.0100, L506.0250, L503.6030 ####[facility] [address] [place], [address] RBC (Bld) [#/Vol] 4.63 10*6/uL Normal 4.6-6.2 [facility] Comment on above: Performed By: #### L 503.6550, L503.0105, L100.0100, L506.0250, L503.6030 ####[facility] [address] [place], [address] RDW SD 42.7 fl Normal 35.1-43.9 [facility] Comment on above: Performed By: #### L 503.6550, L503.0105, L100.0100, L506.0250, L503.6030 ####[facility] [address] [place], [address] WBC (Bld) [#/Vol] 10.0 10*3/uL Normal 4.4-11.0 [facility] Comment on above: Performed By: #### L 503.6550, L503.0105, L100.0100, L506.0250, L503.6030 ####[facility] [address] [place], [address] Ferritinon 07-28-2024 Ferritin [Mass/Vol] 27 ng/mL Normal 26-388 [facility] Comment on above: Order Comment: N Performed By: #### L 503.6550, L503.0105, L100.0100, L506.0250, L503.6030 ####[facility] [address] [place], [address] Folates, (Folic Acid)on 07-18 FOLATES 14.80 ng/mL Normal 3.1-55.4 [facility] Comment on above: Order Comment: N Performed By: #### L 503.6550, L503.0105, L100.0100, L506.0250, L503.6030 ####[facility] [address] [place], [address] Iron+Iron Binding Capacityon 07-28-2024 Iron [Mass/Vol] 50 ug/dL Low 65-175 [facility] Comment on above: Order Comment: N Performed By: #### L 503.6550, L503.0105, L100.0100, L506.0250, L503.6030 ####[facility] [address] [place], [address] IRON SATURATION 12.6 Low 15.0-55.0 [facility] Comment on above: Order Comment: N Performed By: #### L 503.6550, L503.0105, L100.0100, L506.0250, L503.6030 ####[facility] [address] [place], [address] TIBC 397 ug/dL Normal 250-450 [facility] Comment on above: Order Comment: N Performed By: #### L 503.6550, L503.0105, L100.0100, L506.0250, L503.6030 ####[facility] [address] [place], [address] Vitamin B12on 07-28-2024 Cobalamin (Vitamin B12) [Mass/Vol] 310 pg/mL Normal 211-911 [facility] Comment on above: Performed By: #### L 503.6550, L503.0105, L100.0100, L506.0250, L503.6030 ####[facility] [address] [place], [address] Basic Metabolic Profile (BMP )on 07-25-2024 BUN/CRE 34.6 RATIO High 10-20 [facility] Comment on above: Performed By: #### L 100.0100, L500.2500 ####[facility] [address] [place], [address] CA,Total 8.9 mg/dL Normal 8.5-10.1 [facility] Comment on above: Performed By: #### L 100.0100, L500.2500 ####[facility] [address] [place], [address] Chloride [Moles/Vol] 101 mmol/L Normal 98-107 [facility] Comment on above: Performed By: #### L 100.0100, L500.2500 ####[facility] [address] [place], [address] CO2 [Moles/Vol] 30.0 mmol/L Normal 21.0-32.0 [facility] Comment on above: Performed By: #### L 100.0100, L500.2500 ####[facility] [address] [place], [address] Creatinine [Mass/Vol] 1.07 mg/dL Normal 0.70-1.30 [facility] Comment on above: Result Comment: The validity of the calculated GFR GFRAA in patients over70 years has not been determined. Clinical correlation isessential. Performed By: #### L 100.0100, L500.2500 ####[facility] [address] [place], [address] ECRCL 79.30 ml/min Normal [facility] Comment on above: Performed By: #### L 100.0100, L500.2500 ####[facility] [address] [place], [address] EST GFR - AA 86 mL/min Normal >60 [facility] Comment on above: Result Comment: Afri can Malagasy GFR Calc Performed By: #### L 100.0100, L500.2500 ####[facility] [address] [place], [address] GAP 8 Normal 5-15 [facility] Comment on above: Performed By: #### L 100.0100, L500.2500 ####[facility] [address] [place], [address] GFR/1.73 sq M.predicted among non-blacks MDRD (S/P/Bld) [Vol rate/Area] 71 mL/min/{1.73_m2} Normal >60 [facility] Comment on above: Result Comment: Non- GFR Calc Performed By: #### L 100.0100, L500.2500 ####[facility] [address] [place], [address] Glucose [Mass/Vol] 114 mg/dL High 74-106 [facility] Comment on above: Result Comment: Fast ing Glucose result from 100 to 125 mg/dLsuggests IMPAIRED HOMEOSTASIS per A.D.A. criteria. Performed By: #### L 100.0100, L500.2500 ####[facility] [address] [place], [address] Potassium [Moles/Vol] 3.2 mmol/L Low 3.5-5.1 [facility] Comment on above: Performed By: #### L 100.0100, L500.2500 ####[facility] [address] [place], [address] Sodium [Moles/Vol] 138 mmol/L Normal 136-145 [facility] Comment on above: Performed By: #### L 100.0100, L500.2500 ####[facility] [address] [place], [address] Urea nitrogen [Mass/Vol] 37 mg/dL High 7-18 [facility] Comment on above: Performed By: #### L 100.0100, L500.2500 ####[facility] [address] [place], [address] Bedside Glucoseon 07-25-2024 FINGERSTICK GLU 277 mg/dL High 74-106 [facility] Comment on above: Result Comment: URSULA CHAMBERS OF PATIENT CARE PER NURSING PROTOCOL Performed By: #### L 501.080 ####[facility] [address] [place], [address] CBC W/Diff, Automatedon 11-0 8-4 Absolute Lymph 2.18 X10 3/uL Normal 0.83-4.51 [facility] Comment on above: Performed By: #### L 100.0100, L500.2500 ####[facility] [address] [place], [address] Absolute Neut 9.3 X10 3/uL High 2.0-7.7 [facility] Comment on above: Performed By: #### L 100.0100, L500.2500 ####[facility] [address] [place], [address] Basophils/100 WBC (Bld) 0.4 % Normal 0-1 [facility] Comment on above: Performed By: #### L 100.0100, L500.2500 ####[facility] [address] [place], [address] Eosinophils/100 WBC (Bld) 2.4 % Normal 0-5 [facility] Comment on above: Performed By: #### L 100.0100, L500.2500 ####[facility] [address] [place], [address] Erythrocyte distribution width (RBC) [Ratio] 14.1 % Normal 11.6-14.6 [facility] Comment on above: Performed By: #### L 100.0100, L500.2500 ####[facility] [address] [place], [address] Hematocrit (Bld) [Volume fraction] 38.3 % Low 40-54 [facility] Comment on above: Performed By: #### L 100.0100, L500.2500 ####[facility] [address] [place], [address] Hemoglobin (Bld) [Mass/Vol] 12.3 g/dL Low 13.0-16. 5 [facility] Comment on above: Performed By: #### L 100.0100, L500.2500 ####[facility] [address] [place], [address] IG% 0.800 Normal 0.0-0.9 [facility] Comment on above: Result Comment: IG% - Immature Granulocytes (promyelocytes, myelocytes andmetamyelocytes) > 1% indicates that a LEFT SHIFT is Present. Performed By: #### L 100.0100, L500.2500 ####[facility] [address] [place], [address] Lymphocytes/100 WBC (Bld) 16.4 % Low 19-41 [facility] Comment on above: Performed By: #### L 100.0100, L500.2500 ####[facility] [address] [place], [address] MCH (RBC) [Entitic mass] 26.6 pg Low 27.0-32.0 [facility] Comment on above: Performed By: #### L 100.0100, L500.2500 ####[facility] [address] [place], [address] MCHC (RBC) [Mass/Vol] 32.1 g/dL Normal 32-36 [facility] Comment on above: Performed By: #### L 100.0100, L500.2500 ####[facility] [address] [place], [address] MCV (RBC) [Entitic vol] 82.9 fL Normal 80-94 [facility] Comment on above: Performed By: #### L 100.0100, L500.2500 ####[facility] [address] [place], [address] Monocytes/100 WBC (Bld) 10.5 % High 0-10 [facility] Comment on above: Performed By: #### L 100.0100, L500.2500 ####[facility] [address] [place], [address] Neutrophils/100 WBC (Bld) 69.5 % Normal 47-70 [facility] Comment on above: Performed By: #### L 100.0100, L500.2500 ####[facility] [address] [place], [address] Nucleated RBC (Bld) [#/Vol] 0 10*3/uL Normal 0-5 [facility] Comment on above: Performed By: #### L 100.0100, L500.2500 ####[facility] [address] [place], [address] Platelet mean volume (Bld) [Entitic vol] 10.9 fL Normal 6.2-12.0 [facility] Comment on above: Performed By: #### L 100.0100, L500.2500 ####[facility] [address] [place], [address] Platelets (Bld) [#/Vol] 360 10*3/uL Normal 150-450 [facility] Comment on above: Performed By: #### L 100.0100, L500.2500 ####[facility] [address] [place], [address] RBC (Bld) [#/Vol] 4.62 10*6/uL Normal 4.6-6.2 [facility] Comment on above: Performed By: #### L 100.0100, L500.2500 ####[facility] [address] [place], [address] RDW SD 42.3 fl Normal 35.1-43.9 [facility] Comment on above: Performed By: #### L 100.0100, L500.2500 ####[facility] [address] [place], [address] WBC (Bld) [#/Vol] 13.3 10*3/uL High 4.4-11.0 [facility] Comment on above: Performed By: #### L 100.0100, L500.2500 ####[facility] [address] [place], [address] Basic Metabolic Profile (BMP )on 07-24-2024 BUN/CRE 41.7 RATIO High 10-20 [facility] Comment on above: Performed By: #### L 500.2500, L100.0100 ####[facility] [address] [place], [address] CA,Total 8.7 mg/dL Normal 8.5-10.1 [facility] Comment on above: Performed By: #### L 500.2500, L100.0100 ####[facility] [address] [place], [address] Chloride [Moles/Vol] 104 mmol/L Normal 98-107 [facility] Comment on above: Performed By: #### L 500.2500, L100.0100 ####[facility] [address] [place], [address] CO2 [Moles/Vol] 28.0 mmol/L Normal 21.0-32.0 [facility] Comment on above: Performed By: #### L 500.2500, L100.0100 ####[facility] [address] [place], [address] Creatinine [Mass/Vol] 0.91 mg/dL Normal 0.70-1.30 [facility] Comment on above: Result Comment: The validity of the calculated GFR GFRAA in patients over70 years has not been determined. Clinical correlation isessential. Performed By: #### L 500.2500, L100.0100 ####[facility] [address] [place], [address] ECRCL 93.17 ml/min Normal [facility] Comment on above: Performed By: #### L 500.2500, L100.0100 ####[facility] [address] [place], [address] EST GFR - AA 103 mL/min Normal >60 [facility] Comment on above: Result Comment: Afri can Malagasy GFR Calc Performed By: #### L 500.2500, L100.0100 ####[facility] [address] [place], [address] GAP 7 Normal 5-15 [facility] Comment on above: Performed By: #### L 500.2500, L100.0100 ####[facility] [address] [place], [address] GFR/1.73 sq M.predicted among non-blacks MDRD (S/P/Bld) [Vol rate/Area] 85 mL/min/{1.73_m2} Normal >60 [facility] Comment on above: Result Comment: Non- GFR Calc Performed By: #### L 500.2500, L100.0100 ####[facility] [address] [place], [address] Glucose [Mass/Vol] 221 mg/dL High 74-106 [facility] Comment on above: Result Comment: Gluc ose result greater than or equal to 200 mg/dLsuggests DIABETES MELLITUS per A.D.A. criteria. Performed By: #### L 500.2500, L100.0100 ####[facility] [address] [place], [address] Potassium [Moles/Vol] 4.0 mmol/L Normal 3.5-5.1 [facility] Comment on above: Performed By: #### L 500.2500, L100.0100 ####[facility] [address] [place], [address] Sodium [Moles/Vol] 139 mmol/L Normal 136-145 [facility] Comment on above: Performed By: #### L 500.2500, L100.0100 ####[facility] [address] [place], [address] Urea nitrogen [Mass/Vol] 38 mg/dL High 7-18 [facility] Comment on above: Performed By: #### L 500.2500, L100.0100 ####[facility] [address] [place], [address] Bedside Glucoseon 07-24-2024 FINGERSTICK GLU 108 mg/dL High 74-106 [facility] Comment on above: Result Comment: URSULA GEMENT OF PATIENT CARE PER NURSING PROTOCOL Performed By: #### L 501.080 ####[facility] [address] [place], [address] FINGERSTICK GLU 192 mg/dL High 74-106 [facility] Comment on above: Result Comment: URSULA GEMENT OF PATIENT CARE PER NURSING PROTOCOL Performed By: #### L 501.080 ####[facility] [address] [place], [address] FINGERSTICK GLU 227 mg/dL High 74-106 [facility] Comment on above: Result Comment: URSULA GEMENT OF PATIENT CARE PER NURSING PROTOCOL Performed By: #### L 501.080 ####[facility] [address] [place], [address] FINGERSTICK GLU 227 mg/dL High 74-106 [facility] Comment on above: Result Comment: URSULA GEMENT OF PATIENT CARE PER NURSING PROTOCOL Performed By: #### L 501.080 ####[facility] [address] [place], [address] CBC W/Diff, Automatedon 11-0 Absolute Lymph 2.00 X10 3/uL Normal 0.83-4.51 [facility] Comment on above: Performed By: #### L 500.2500, L100.0100 ####[facility] [address] [place], [address] Absolute Neut 8.9 X10 3/uL High 2.0-7.7 [facility] Comment on above: Performed By: #### L 500.2500, L100.0100 ####[facility] [address] [place], [address] Basophils/100 WBC (Bld) 0.3 % Normal 0-1 [facility] Comment on above: Performed By: #### L 500.2500, L100.0100 ####[facility] [address] [place], [address] Eosinophils/100 WBC (Bld) 1.0 % Normal 0-5 [facility] Comment on above: Performed By: #### L 500.2500, L100.0100 ####[facility] [address] [place], [address] Erythrocyte distribution width (RBC) [Ratio] 14.1 % Normal 11.6-14.6 [facility] Comment on above: Performed By: #### L 500.2500, L100.0100 ####[facility] [address] [place], [address] Hematocrit (Bld) [Volume fraction] 37.0 % Low 40-54 [facility] Comment on above: Performed By: #### L 500.2500, L100.0100 ####[facility] [address] [place], [address] Hemoglobin (Bld) [Mass/Vol] 11.5 g/dL Low 13.0-16. 5 [facility] Comment on above: Performed By: #### L 500.2500, L100.0100 ####[facility] [address] [place], [address] IG% 0.600 Normal 0.0-0.9 [facility] Comment on above: Result Comment: IG% - Immature Granulocytes (promyelocytes, myelocytes andmetamyelocytes) > 1% indicates that a LEFT SHIFT is Present. Performed By: #### L 500.2500, L100.0100 ####[facility] [address] [place], [address] Lymphocytes/100 WBC (Bld) 16.0 % Low 19-41 [facility] Comment on above: Performed By: #### L 500.2500, L100.0100 ####[facility] [address] [place], [address] MCH (RBC) [Entitic mass] 26.6 pg Low 27.0-32.0 [facility] Comment on above: Performed By: #### L 500.2500, L100.0100 ####[facility] [address] [place], [address] MCHC (RBC) [Mass/Vol] 31.1 g/dL Low 32-36 [facility] Comment on above: Performed By: #### L 500.2500, L100.0100 ####[facility] [address] [place], [address] MCV (RBC) [Entitic vol] 85.6 fL Normal 80-94 [facility] Comment on above: Performed By: #### L 500.2500, L100.0100 ####[facility] [address] [place], [address] Monocytes/100 WBC (Bld) 11.4 % High 0-10 [facility] Comment on above: Performed By: #### L 500.2500, L100.0100 ####[facility] [address] [place], [address] Neutrophils/100 WBC (Bld) 70.7 % High 47-70 [facility] Comment on above: Performed By: #### L 500.2500, L100.0100 ####[facility] [address] [place], [address] Nucleated RBC (Bld) [#/Vol] 0 10*3/uL Normal 0-5 [facility] Comment on above: Performed By: #### L 500.2500, L100.0100 ####[facility] [address] [place], [address] Platelet mean volume (Bld) [Entitic vol] 11.5 fL Normal 6.2-12.0 [facility] Comment on above: Performed By: #### L 500.2500, L100.0100 ####[facility] [address] [place], [address] Platelets (Bld) [#/Vol] 302 10*3/uL Normal 150-450 [facility] Comment on above: Performed By: #### L 500.2500, L100.0100 ####[facility] [address] [place], [address] RBC (Bld) [#/Vol] 4.32 10*6/uL Low 4.6-6.2 [facility] Comment on above: Performed By: #### L 500.2500, L100.0100 ####[facility] [address] [place], [address] RDW SD 43.9 fl Normal 35.1-43.9 [facility] Comment on above: Performed By: #### L 500.2500, L100.0100 ####[facility] [address] [place], [address] WBC (Bld) [#/Vol] 12.5 10*3/uL High 4.4-11.0 [facility] Comment on above: Performed By: #### L 500.2500, L100.0100 ####[facility] [address] [place], [address] 12 Lead EKGon 07-23-2024 12 Lead EKG Normal [facility] Basic Metabolic Profile (BMP )on 07-23-2024 BUN/CRE 28.7 RATIO High 10-20 [facility] Comment on above: Performed By: #### L 500.2500, L100.0100, L500.4100, L501.5200 ####[facility] [address] [place], [address] CA,Total 9.0 mg/dL Normal 8.5-10.1 [facility] Comment on above: Performed By: #### L 500.2500, L100.0100, L500.4100, L501.5200 ####[facility] [address] [place], [address] Chloride [Moles/Vol] 103 mmol/L Normal 98-107 [facility] Comment on above: Performed By: #### L 500.2500, L100.0100, L500.4100, L501.5200 ####[facility] [address] [place], [address] CO2 [Moles/Vol] 27.0 mmol/L Normal 21.0-32.0 [facility] Comment on above: Performed By: #### L 500.2500, L100.0100, L500.4100, L501.5200 ####[facility] [address] [place], [address] Creatinine [Mass/Vol] 1.08 mg/dL Normal 0.70-1.30 [facility] Comment on above: Result Comment: The validity of the calculated GFR GFRAA in patients over70 years has not been determined. Clinical correlation isessential. Performed By: #### L 500.2500, L100.0100, L500.4100, L501.5200 ####[facility] [address] [place], [address] ECRCL 78.41 ml/min Normal [facility] Comment on above: Performed By: #### L 500.2500, L100.0100, L500.4100, L501.5200 ####[facility] [address] [place], [address] EST GFR - AA 85 mL/min Normal >60 [facility] Comment on above: Result Comment: Afri can Malagasy GFR Calc Performed By: #### L 500.2500, L100.0100, L500.4100, L501.5200 ####[facility] [address] [place], [address] GAP 7 Normal 5-15 [facility] Comment on above: Performed By: #### L 500.2500, L100.0100, L500.4100, L501.5200 ####[facility] [address] [place], [address] GFR/1.73 sq M.predicted among non-blacks MDRD (S/P/Bld) [Vol rate/Area] 70 mL/min/{1.73_m2} Normal >60 [facility] Comment on above: Result Comment: Non- GFR Calc Performed By: #### L 500.2500, L100.0100, L500.4100, L501.5200 ####[facility] [address] [place], [address] Glucose [Mass/Vol] 330 mg/dL High 74-106 [facility] Comment on above: Result Comment: Gluc ose result greater than or equal to 200 mg/dLsuggests DIABETES MELLITUS per A.D.A. criteria. Performed By: #### L 500.2500, L100.0100, L500.4100, L501.5200 ####[facility] [address] [place], [address] Potassium [Moles/Vol] 3.9 mmol/L Normal 3.5-5.1 [facility] Comment on above: Performed By: #### L 500.2500, L100.0100, L500.4100, L501.5200 ####[facility] [address] [place], [address] Sodium [Moles/Vol] 137 mmol/L Normal 136-145 [facility] Comment on above: Performed By: #### L 500.2500, L100.0100, L500.4100, L501.5200 ####[facility] [address] [place], [address] Urea nitrogen [Mass/Vol] 31 mg/dL High 7-18 [facility] Comment on above: Performed By: #### L 500.2500, L100.0100, L500.4100, L501.5200 ####[facility] [address] [place], [address] Bedside Glucoseon 07-23-2024 FINGERSTICK GLU 352 mg/dL High 74-106 [facility] Comment on above: Result Comment: URSULA GEMENT OF PATIENT CARE PER NURSING PROTOCOL Performed By: #### L 501.080 ####[facility] [address] [place], [address] FINGERSTICK GLU 409 mg/dL High 74-106 [facility] Comment on above: Result Comment: URSULA GEMENT OF PATIENT CARE PER NURSING PROTOCOL Performed By: #### L 501.080 ####[facility] [address] [place], [address] FINGERSTICK GLU 350 mg/dL High 74-106 [facility] Comment on above: Result Comment: URSULA GEMENT OF PATIENT CARE PER NURSING PROTOCOL Performed By: #### L 501.080 ####[facility] [address] [place], [address] FINGERSTICK GLU 301 mg/dL High 74-106 [facility] Comment on above: Result Comment: URSULA GEMENT OF PATIENT CARE PER NURSING PROTOCOL Performed By: #### L 501.080 ####[facility] [address] [place], [address] CBC W/Diff, Automatedon 11-0 6-2024 Absolute Lymph 0.66 X10 3/uL Low 0.83-4.51 [facility] Comment on above: Performed By: #### L 500.2500, L100.0100, L500.4100, L501.5200 ####[facility] [address] [place], [address] Absolute Neut 10.7 X10 3/uL High 2.0-7.7 [facility] Comment on above: Performed By: #### L 500.2500, L100.0100, L500.4100, L501.5200 ####[facility] [address] [place], [address] Basophils/100 WBC (Bld) 0.1 % Normal 0-1 [facility] Comment on above: Performed By: #### L 500.2500, L100.0100, L500.4100, L501.5200 ####[facility] [address] [place], [address] Eosinophils/100 WBC (Bld) 0.0 % Normal 0-5 [facility] Comment on above: Performed By: #### L 500.2500, L100.0100, L500.4100, L501.5200 ####[facility] [address] [place], [address] Erythrocyte distribution width (RBC) [Ratio] 14.0 % Normal 11.6-14.6 [facility] Comment on above: Performed By: #### L 500.2500, L100.0100, L500.4100, L501.5200 ####[facility] [address] [place], [address] Hematocrit (Bld) [Volume fraction] 37.3 % Low 40-54 [facility] Comment on above: Performed By: #### L 500.2500, L100.0100, L500.4100, L501.5200 ####[facility] [address] [place], [address] Hemoglobin (Bld) [Mass/Vol] 11.7 g/dL Low 13.0-16. 5 [facility] Comment on above: Performed By: #### L 500.2500, L100.0100, L500.4100, L501.5200 ####[facility] [address] [place], [address] IG% 0.500 Normal 0.0-0.9 [facility] Comment on above: Result Comment: IG% - Immature Granulocytes (promyelocytes, myelocytes andmetamyelocytes) > 1% indicates that a LEFT SHIFT is Present. Performed By: #### L 500.2500, L100.0100, L500.4100, L501.5200 ####[facility] [address] [place], [address] Lymphocytes/100 WBC (Bld) 5.6 % Low 19-41 [facility] Comment on above: Performed By: #### L 500.2500, L100.0100, L500.4100, L501.5200 ####[facility] [address] [place], [address] MCH (RBC) [Entitic mass] 26.4 pg Low 27.0-32.0 [facility] Comment on above: Performed By: #### L 500.2500, L100.0100, L500.4100, L501.5200 ####[facility] [address] [place], [address] MCHC (RBC) [Mass/Vol] 31.4 g/dL Low 32-36 [facility] Comment on above: Performed By: #### L 500.2500, L100.0100, L500.4100, L501.5200 ####[facility] [address] [place], [address] MCV (RBC) [Entitic vol] 84.0 fL Normal 80-94 [facility] Comment on above: Performed By: #### L 500.2500, L100.0100, L500.4100, L501.5200 ####[facility] [address] [place], [address] Monocytes/100 WBC (Bld) 3.5 % Normal 0-10 [facility] Comment on above: Performed By: #### L 500.2500, L100.0100, L500.4100, L501.5200 ####[facility] [address] [place], [address] Neutrophils/100 WBC (Bld) 90.3 % High 47-70 [facility] Comment on above: Performed By: #### L 500.2500, L100.0100, L500.4100, L501.5200 ####[facility] [address] [place], [address] Nucleated RBC (Bld) [#/Vol] 0 10*3/uL Normal 0-5 [facility] Comment on above: Performed By: #### L 500.2500, L100.0100, L500.4100, L501.5200 ####[facility] [address] [place], [address] Platelet mean volume (Bld) [Entitic vol] 10.6 fL Normal 6.2-12.0 [facility] Comment on above: Performed By: #### L 500.2500, L100.0100, L500.4100, L501.5200 ####[facility] [address] [place], [address] Platelets (Bld) [#/Vol] 339 10*3/uL Normal 150-450 [facility] Comment on above: Performed By: #### L 500.2500, L100.0100, L500.4100, L501.5200 ####[facility] [address] [place], [address] RBC (Bld) [#/Vol] 4.44 10*6/uL Low 4.6-6.2 [facility] Comment on above: Performed By: #### L 500.2500, L100.0100, L500.4100, L501.5200 ####[facility] [address] [place], [address] RDW SD 43.2 fl Normal 35.1-43.9 [facility] Comment on above: Performed By: #### L 500.2500, L100.0100, L500.4100, L501.5200 ####[facility] [address] [place], [address] WBC (Bld) [#/Vol] 11.9 10*3/uL High 4.4-11.0 [facility] Comment on above: Performed By: #### L 500.2500, L100.0100, L500.4100, L501.5200 ####[facility] [address] [place], [address] Lipid Profileon 07-23-2024 Cholesterol [Mass/Vol] 114 mg/dL Normal 200 [facility] Comment on above: Result Comment: <200 mg/dL Desirable 200-240 mg/dL Borderline >240 mg/dL High Risk Performed By: #### L 500.2500, L100.0100, L500.4100, L501.5200 ####[facility] [address] [place], [address] Cholesterol in HDL [Mass/Vol] 47 mg/dL Normal [facility] Comment on above: Result Comment: The drugs N-Acetylcysteine and Metamizole may falselydepress this assay. Reference Range HDL <40 mg/dL Low HDL Cholesterol HDL >or= 60 mg/dL High HDL Cholesterol Performed By: #### L 500.2500, L100.0100, L500.4100, L501.5200 ####[facility] [address] [place], [address] Cholesterol in LDL [Mass/Vol] 56 mg/dL Normal 0-130 [facility] Comment on above: Performed By: #### L 500.2500, L100.0100, L500.4100, L501.5200 ####[facility] [address] [place], [address] Cholesterol in VLDL [Mass/Vol] 11 mg/dL Normal 5-40 [facility] Comment on above: Performed By: #### L 500.2500, L100.0100, L500.4100, L501.5200 ####[facility] [address] [place], [address] Triglyceride [Mass/Vol] 57 mg/dL Normal [facility] Comment on above: Result Comment: The drugs N-Acetylcysteine and Metamizole may falselydepress this assay.Serum Triglycerides Reference Interval Normal <150 mg/dL Borderline high 150 - 199 mg/dL High 200 - 499 mg/dL Very High > or = 500 mg/dL Performed By: #### L 500.2500, L100.0100, L500.4100, L501.5200 ####[facility] [address] [place], [address] Magnesiumon 07-23-2024 Magnesium [Mass/Vol] 2.0 mg/dL Normal 1.6-2.6 [facility] Comment on above: Performed By: #### L 500.2500, L100.0100, L500.4100, L501.5200 ####[facility] [address] [place], [address] RESPIRATORY PANEL MOLECULARo n 07-23-2024 RP PANEL Normal [facility] Comment on above: Performed By: #### M 100.638 ####[facility] [address] [place], [address] 12 Lead EKGon 07-22-2024 12 Lead EKG Normal [facility] BNP,B-Type NATRIURETIC PEPTI Suyapa 07-22-2024 Natriuretic peptide B (Bld) [Mass/Vol] 108.4 pg/mL High 0-100 [facility] Comment on above: Performed By: #### L 503.6676 ####[facility] [address] [place], [address] Basic Metabolic Profile (BMP )on 07-22-2024 BUN/CRE 34.7 RATIO High 10-20 [facility] Comment on above: Order Comment: 'TROP ' Serial specimen #1, #2 or #3: 1 Performed By: #### L 501.4020, L500.2500, L100.0100 ####[facility] [address] [place], [address] CA,Total 9.2 mg/dL Normal 8.5-10.1 [facility] Comment on above: Order Comment: 'TROP ' Serial specimen #1, #2 or #3: 1 Performed By: #### L 501.4020, L500.2500, L100.0100 ####[facility] [address] [place], [address] Chloride [Moles/Vol] 107 mmol/L Normal 98-107 [facility] Comment on above: Order Comment: 'TROP ' Serial specimen #1, #2 or #3: 1 Performed By: #### L 501.4020, L500.2500, L100.0100 ####[facility] [address] [place], [address] CO2 [Moles/Vol] 29.0 mmol/L Normal 21.0-32.0 [facility] Comment on above: Order Comment: 'TROP ' Serial specimen #1, #2 or #3: 1 Performed By: #### L 501.4020, L500.2500, L100.0100 ####[facility] [address] [place], [address] Creatinine [Mass/Vol] 0.92 mg/dL Normal 0.70-1.30 [facility] Comment on above: Order Comment: 'TROP ' Serial specimen #1, #2 or #3: 1 Result Comment: The validity of the calculated GFR GFRAA in patients over70 years has not been determined. Clinical correlation isessential. Performed By: #### L 501.4020, L500.2500, L100.0100 ####[facility] [address] [place], [address] EST GFR - AA 102 mL/min Normal >60 [facility] Comment on above: Order Comment: 'TROP ' Serial specimen #1, #2 or #3: 1 Result Comment: Afri can Malagasy GFR Calc Performed By: #### L 501.4020, L500.2500, L100.0100 ####[facility] [address] [place], [address] GAP 4 Low 5-15 [facility] Comment on above: Order Comment: 'TROP ' Serial specimen #1, #2 or #3: 1 Performed By: #### L 501.4020, L500.2500, L100.0100 ####[facility] [address] [place], [address] GFR/1.73 sq M.predicted among non-blacks MDRD (S/P/Bld) [Vol rate/Area] 84 mL/min/{1.73_m2} Normal >60 [facility] Comment on above: Order Comment: 'TROP ' Serial specimen #1, #2 or #3: 1 Result Comment: Non- GFR Calc Performed By: #### L 501.4020, L500.2500, L100.0100 ####[facility] [address] [place], [address] Glucose [Mass/Vol] 78 mg/dL Normal 74-106 [facility] Comment on above: Order Comment: 'TROP ' Serial specimen #1, #2 or #3: 1 Performed By: #### L 501.4020, L500.2500, L100.0100 ####[facility] [address] [place], [address] Potassium [Moles/Vol] 3.2 mmol/L Low 3.5-5.1 [facility] Comment on above: Order Comment: 'TROP ' Serial specimen #1, #2 or #3: 1 Performed By: #### L 501.4020, L500.2500, L100.0100 ####[facility] [address] [place], [address] Sodium [Moles/Vol] 139 mmol/L Normal 136-145 [facility] Comment on above: Order Comment: 'TROP ' Serial specimen #1, #2 or #3: 1 Performed By: #### L 501.4020, L500.2500, L100.0100 ####[facility] [address] [place], [address] Urea nitrogen [Mass/Vol] 32 mg/dL High 7-18 [facility] Comment on above: Order Comment: 'TROP ' Serial specimen #1, #2 or #3: 1 Performed By: #### L 501.4020, L500.2500, L100.0100 ####[facility] [address] [place], [address] Bedside Glucoseon 07-22-2024 FINGERSTICK GLU 370 mg/dL High 74-106 [facility] Comment on above: Result Comment: URSULA GEMENT OF PATIENT CARE PER NURSING PROTOCOL Performed By: #### L 501.080 ####[facility] [address] [place], [address] FINGERSTICK GLU 206 mg/dL High 74-106 [facility] Comment on above: Result Comment: URSULA GEMENT OF PATIENT CARE PER NURSING PROTOCOL Performed By: #### L 501.080 ####[facility] [address] [place], [address] CBC W/Diff, Automatedon 11-0 5-2024 Absolute Lymph 0.98 X10 3/uL Normal 0.83-4.51 [facility] Comment on above: Performed By: #### L 501.4020, L500.2500, L100.0100 ####[facility] [address] [place], [address] Absolute Neut 13.9 X10 3/uL High 2.0-7.7 [facility] Comment on above: Performed By: #### L 501.4020, L500.2500, L100.0100 ####[facility] [address] [place], [address] Basophils/100 WBC (Bld) 0.2 % Normal 0-1 [facility] Comment on above: Performed By: #### L 501.4020, L500.2500, L100.0100 ####[facility] [address] [place], [address] Eosinophils/100 WBC (Bld) 0.9 % Normal 0-5 [facility] Comment on above: Performed By: #### L 501.4020, L500.2500, L100.0100 ####[facility] [address] [place], [address] Erythrocyte distribution width (RBC) [Ratio] 14.1 % Normal 11.6-14.6 [facility] Comment on above: Performed By: #### L 501.4020, L500.2500, L100.0100 ####[facility] [address] [place], [address] Hematocrit (Bld) [Volume fraction] 40.3 % Normal 40-54 [facility] Comment on above: Performed By: #### L 501.4020, L500.2500, L100.0100 ####[facility] [address] [place], [address] Hemoglobin (Bld) [Mass/Vol] 12.6 g/dL Low 13.0-16. 5 [facility] Comment on above: Performed By: #### L 501.4020, L500.2500, L100.0100 ####[facility] [address] [place], [address] IG% 0.500 Normal 0.0-0.9 [facility] Comment on above: Result Comment: IG% - Immature Granulocytes (promyelocytes, myelocytes andmetamyelocytes) > 1% indicates that a LEFT SHIFT is Present. Performed By: #### L 501.4020, L500.2500, L100.0100 ####[facility] [address] [place], [address] Lymphocytes/100 WBC (Bld) 6.0 % Low 19-41 [facility] Comment on above: Performed By: #### L 501.4020, L500.2500, L100.0100 ####[facility] [address] [place], [address] MCH (RBC) [Entitic mass] 26.6 pg Low 27.0-32.0 [facility] Comment on above: Performed By: #### L 501.4020, L500.2500, L100.0100 ####[facility] [address] [place], [address] MCHC (RBC) [Mass/Vol] 31.3 g/dL Low 32-36 [facility] Comment on above: Performed By: #### L 501.4020, L500.2500, L100.0100 ####[facility] [address] [place], [address] MCV (RBC) [Entitic vol] 85.2 fL Normal 80-94 [facility] Comment on above: Performed By: #### L 501.4020, L500.2500, L100.0100 ####[facility] [address] [place], [address] Monocytes/100 WBC (Bld) 7.7 % Normal 0-10 [facility] Comment on above: Performed By: #### L 501.4020, L500.2500, L100.0100 ####[facility] [address] [place], [address] Neutrophils/100 WBC (Bld) 84.7 % High 47-70 [facility] Comment on above: Performed By: #### L 501.4020, L500.2500, L100.0100 ####[facility] [address] [place], [address] Nucleated RBC (Bld) [#/Vol] 0 10*3/uL Normal 0-5 [facility] Comment on above: Performed By: #### L 501.4020, L500.2500, L100.0100 ####[facility] [address] [place], [address] Platelet mean volume (Bld) [Entitic vol] 10.9 fL Normal 6.2-12.0 [facility] Comment on above: Performed By: #### L 501.4020, L500.2500, L100.0100 ####[facility] [address] [place], [address] Platelets (Bld) [#/Vol] 350 10*3/uL Normal 150-450 [facility] Comment on above: Performed By: #### L 501.4020, L500.2500, L100.0100 ####[facility] [address] [place], [address] RBC (Bld) [#/Vol] 4.73 10*6/uL Normal 4.6-6.2 [facility] Comment on above: Performed By: #### L 501.4020, L500.2500, L100.0100 ####[facility] [address] [place], [address] RDW SD 43.6 fl Normal 35.1-43.9 [facility] Comment on above: Performed By: #### L 501.4020, L500.2500, L100.0100 ####[facility] [address] [place], [address] WBC (Bld) [#/Vol] 16.4 10*3/uL High 4.4-11.0 [facility] Comment on above: Performed By: #### L 501.4020, L500.2500, L100.0100 ####[facility] [address] [place], [address] Chest 1 View (Portable)on Chest 1 View (Portable) Normal [facility] Echo Complete W/ Contraston 07-22-2024 Echo Complete W/ Contrast Normal [facility] Emergency Department Summary on 07-22-2024 Emergency Department Summary Normal [facility] H AND P Exam - Hospitaliston 07-22-2024 H&P Exam - Hospitalist Normal [facility] L501.4020on 07-22-2024 TROPONIN-I HS 14 pg/mL Normal 3.0-78.0 [facility] Comment on above: Order Comment: 'TROP ' Serial specimen #1, #2 or #3: 1 Result Comment: Plea se Note: New Test Units and Gender Specific Reference Ranges. For more information see Policy Stat Procedure Pierre High Sensitivity Troponin (TNIH) and attachments. Performed By: #### L 501.4020, L500.2500, L100.0100 ####[facility] [address] [place], [address] M100.678on 07-22-2024 M100.678 Pending SARS-CoV-2 (COVID 19) Negative INFLUENZA A Negative INFLUENZA B Negative RSV PCR Negative Normal [facility] Comment on above: Performed By: #### M 100.678 ####[facility] [address] [place], [address] Urinalysis, Completeon 07-22 BACTERIA RARE Normal None Seen [facility] Comment on above: Order Comment: CLEAN CATCH Performed By: #### L 400.0001 ####[facility] [address] [place], [address] EPI,SQUAMOUS 0-5 SEEN Normal 0-5 [facility] Comment on above: Order Comment: CLEAN CATCH Performed By: #### L 400.0001 ####[facility] [address] [place], [address] RBC 0-5 SEEN Normal 0-5 [facility] Comment on above: Order Comment: CLEAN CATCH Performed By: #### L 400.0001 ####[facility] [address] [place], [address] WBC 0-5 SEEN Normal 0-5 [facility] Comment on above: Order Comment: CLEAN CATCH Performed By: #### L 400.0001 ####[facility] [address] [place], [address] Mucus Ql (Urine sed) 0 SEEN Normal [facility] Comment on above: Order Comment: CLEAN CATCH Performed By: #### L 400.0001 ####[facility] [address] [place], [address] 12 Lead EKGon 07-11-2024 12 Lead EKG Normal [facility] Bedside Glucoseon 07-11-2024 FINGERSTICK GLU 185 mg/dL High 74-106 [facility] Comment on above: Result Comment: URSULA GEMENT OF PATIENT CARE PER NURSING PROTOCOL Performed By: #### L 501.080 ####[facility] [address] [place], [address] FINGERSTICK GLU 272 mg/dL High 74-106 [facility] Comment on above: Result Comment: URSULA GEMENT OF PATIENT CARE PER NURSING PROTOCOL Performed By: #### L 501.080 ####[facility] [address] [place], [address] CBC W/Diff, Automatedon 10-2 -2023 Absolute Lymph 1.67 X10 3/uL Normal 0.83-4.51 [facility] Comment on above: Performed By: #### L 501.5200, L100.0100, L500.4050, L501.9520, L500.4100, L501.9985, L501.2300 ####[facility] [address] [place], [address] Absolute Neut 7.7 X10 3/uL Normal 2.0-7.7 [facility] Comment on above: Performed By: #### L 501.5200, L100.0100, L500.4050, L501.9520, L500.4100, L501.9985, L501.2300 ####[facility] [address] [place], [address] Basophils/100 WBC (Bld) 0.3 % Normal 0-1 [facility] Comment on above: Performed By: #### L 501.5200, L100.0100, L500.4050, L501.9520, L500.4100, L501.9985, L501.2300 ####[facility] [address] [facility] [place], [address] Eosinophils/100 WBC (Bld) 2.9 % Normal 0-5 [facility] Comment on above: Performed By: #### L 501.5200, L100.0100, L500.4050, L501.9520, L500.4100, L501.9985, L501.2300 ####[facility] [address] [place], [address] Erythrocyte distribution width (RBC) [Ratio] 13.7 % Normal 11.6-14.6 [facility] Comment on above: Performed By: #### L 501.5200, L100.0100, L500.4050, L501.9520, L500.4100, L501.9985, L501.2300 ####[facility] [address] [place], [address] Hematocrit (Bld) [Volume fraction] 34.7 % Low 40-54 [facility] Comment on above: Performed By: #### L 501.5200, L100.0100, L500.4050, L501.9520, L500.4100, L501.9985, L501.2300 ####[facility] [address] [place], [address] Hemoglobin (Bld) [Mass/Vol] 11.2 g/dL Low 13.0-16. 5 [facility] Comment on above: Performed By: #### L 501.5200, L100.0100, L500.4050, L501.9520, L500.4100, L501.9985, L501.2300 ####[facility] [address] [place], [address] IG% 0.500 Normal 0.0-0.9 [facility] Comment on above: Result Comment: IG% - Immature Granulocytes (promyelocytes, myelocytes andmetamyelocytes) > 1% indicates that a LEFT SHIFT is Present. Performed By: #### L 501.5200, L100.0100, L500.4050, L501.9520, L500.4100, L501.9985, L501.2300 ####[facility] [address] [place], [address] Lymphocytes/100 WBC (Bld) 15.3 % Low 19-41 [facility] Comment on above: Performed By: #### L 501.5200, L100.0100, L500.4050, L501.9520, L500.4100, L501.9985, L501.2300 ####[facility] [address] [place], [address] MCH (RBC) [Entitic mass] 27.2 pg Normal 27.0-32.0 [facility] Comment on above: Performed By: #### L 501.5200, L100.0100, L500.4050, L501.9520, L500.4100, L501.9985, L501.2300 ####[facility] [address] [place], [address] MCHC (RBC) [Mass/Vol] 32.3 g/dL Normal 32-36 [facility] Comment on above: Performed By: #### L 501.5200, L100.0100, L500.4050, L501.9520, L500.4100, L501.9985, L501.2300 ####[facility] [address] [place], [address] MCV (RBC) [Entitic vol] 84.2 fL Normal 80-94 [facility] Comment on above: Performed By: #### L 501.5200, L100.0100, L500.4050, L501.9520, L500.4100, L501.9985, L501.2300 ####[facility] [address] [place], [address] Monocytes/100 WBC (Bld) 11.0 % High 0-10 [facility] Comment on above: Performed By: #### L 501.5200, L100.0100, L500.4050, L501.9520, L500.4100, L501.9985, L501.2300 ####[facility] [address] [place], [address] Neutrophils/100 WBC (Bld) 70.0 % Normal 47-70 [facility] Comment on above: Performed By: #### L 501.5200, L100.0100, L500.4050, L501.9520, L500.4100, L501.9985, L501.2300 ####[facility] [address] [place], [address] Nucleated RBC (Bld) [#/Vol] 0 10*3/uL Normal 0-5 [facility] Comment on above: Performed By: #### L 501.5200, L100.0100, L500.4050, L501.9520, L500.4100, L501.9985, L501.2300 ####[facility] [address] [place], [address] Platelet mean volume (Bld) [Entitic vol] 10.7 fL Normal 6.2-12.0 [facility] Comment on above: Performed By: #### L 501.5200, L100.0100, L500.4050, L501.9520, L500.4100, L501.9985, L501.2300 ####[facility] [address] [place], [address] Platelets (Bld) [#/Vol] 239 10*3/uL Normal 150-450 [facility] Comment on above: Performed By: #### L 501.5200, L100.0100, L500.4050, L501.9520, L500.4100, L501.9985, L501.2300 ####[facility] [address] [place], [address] RBC (Bld) [#/Vol] 4.12 10*6/uL Low 4.6-6.2 [facility] Comment on above: Performed By: #### L 501.5200, L100.0100, L500.4050, L501.9520, L500.4100, L501.9985, L501.2300 ####[facility] [address] [place], [address] RDW SD 41.8 fl Normal 35.1-43.9 [facility] Comment on above: Performed By: #### L 501.5200, L100.0100, L500.4050, L501.9520, L500.4100, L501.9985, L501.2300 ####[facility] [address] [place], [address] WBC (Bld) [#/Vol] 11.0 10*3/uL Normal 4.4-11.0 [facility] Comment on above: Performed By: #### L 501.5200, L100.0100, L500.4050, L501.9520, L500.4100, L501.9985, L501.2300 ####[facility] [address] [place], [address] Comprehensive Metabolic Prof ilon 07-11-2024 Albumin [Mass/Vol] 3.0 g/dL Low 3.2-5.0 [facility] Comment on above: Performed By: #### L 501.5200, L100.0100, L500.4050, L501.9520, L500.4100, L501.9985, L501.2300 ####[facility] [address] [place], [address] Albumin/Globulin [Mass ratio] 0.8 {ratio} Low 0.9-2.4 [facility] Comment on above: Performed By: #### L 501.5200, L100.0100, L500.4050, L501.9520, L500.4100, L501.9985, L501.2300 ####[facility] [address] [place], [address] ALK P 69 U/L Normal 45-117 [facility] Comment on above: Performed By: #### L 501.5200, L100.0100, L500.4050, L501.9520, L500.4100, L501.9985, L501.2300 ####[facility] [address] [place], [address] ALT [Catalytic activity/Vol] 18 U/L Normal 16-61 [facility] Comment on above: Performed By: #### L 501.5200, L100.0100, L500.4050, L501.9520, L500.4100, L501.9985, L501.2300 ####[facility] [address] [place], [address] AST [Catalytic activity/Vol] 14 U/L Low 15-37 [facility] Comment on above: Performed By: #### L 501.5200, L100.0100, L500.4050, L501.9520, L500.4100, L501.9985, L501.2300 ####[facility] [address] [place], [place], [phone] Bilirubin [Mass/Vol] 0.40 mg/dL Normal 0.20-1.00 [facility] Comment on above: Result Comment: For patients on eltrombopag therapy, use of Dimension Pierre TBIL is not recommended. Performed By: #### L 501.5200, L100.0100, L500.4050, L501.9520, L500.4100, L501.9985, L501.2300 ####[facility] [address] [place], [place], [phone] BUN/CRE 22.0 RATIO High 10-20 [facility] Comment on above: Performed By: #### L 501.5200, L100.0100, L500.4050, L501.9520, L500.4100, L501.9985, L501.2300 ####[facility] [address] [place], [address] CA,Total 8.7 mg/dL Normal 8.5-10.1 [facility] Comment on above: Performed By: #### L 501.5200, L100.0100, L500.4050, L501.9520, L500.4100, L501.9985, L501.2300 ####[facility] [address] [place], [address] Chloride [Moles/Vol] 101 mmol/L Normal 98-107 [facility] Comment on above: Performed By: #### L 501.5200, L100.0100, L500.4050, L501.9520, L500.4100, L501.9985, L501.2300 ####[facility] [address] [place], [address] CO2 [Moles/Vol] 26.0 mmol/L Normal 21.0-32.0 [facility] Comment on above: Performed By: #### L 501.5200, L100.0100, L500.4050, L501.9520, L500.4100, L501.9985, L501.2300 ####[facility] [address] [place], [address] Creatinine [Mass/Vol] 1.00 mg/dL Normal 0.70-1.30 [facility] Comment on above: Result Comment: The validity of the calculated GFR GFRAA in patients over70 years has not been determined. Clinical correlation isessential. Performed By: #### L 501.5200, L100.0100, L500.4050, L501.9520, L500.4100, L501.9985, L501.2300 ####[facility] [address] [place], [address] ECRCL 82.35 ml/min Normal [facility] Comment on above: Performed By: #### L 501.5200, L100.0100, L500.4050, L501.9520, L500.4100, L501.9985, L501.2300 ####[facility] [address] [place], [address] EST GFR - AA 92 mL/min Normal >60 [facility] Comment on above: Result Comment: Afri can Malagasy GFR Calc Performed By: #### L 501.5200, L100.0100, L500.4050, L501.9520, L500.4100, L501.9985, L501.2300 ####[facility] [address] [place], [place], [phone] GAP 4 Low 5-15 [facility] Comment on above: Performed By: #### L 501.5200, L100.0100, L500.4050, L501.9520, L500.4100, L501.9985, L501.2300 ####[facility] [address] [place], [place], [phone] GFR/1.73 sq M.predicted among non-blacks MDRD (S/P/Bld) [Vol rate/Area] 76 mL/min/{1.73_m2} Normal >60 [facility] Comment on above: Result Comment: Non- GFR Calc Performed By: #### L 501.5200, L100.0100, L500.4050, L501.9520, L500.4100, L501.9985, L501.2300 ####[facility] [address] [place], [place], [phone] Globulin (S) [Mass/Vol] 3.8 g/dL Normal 2.2-4.2 [facility] Comment on above: Performed By: #### L 501.5200, L100.0100, L500.4050, L501.9520, L500.4100, L501.9985, L501.2300 ####[facility] [address] [place], [place], [phone] Glucose [Mass/Vol] 185 mg/dL High 74-106 [facility] Comment on above: Result Comment: Fast ing Glucose result greater than or equal to 126 mg/dLsuggests DIABETES MELLITUS per A.D.A. criteria. Performed By: #### L 501.5200, L100.0100, L500.4050, L501.9520, L500.4100, L501.9985, L501.2300 ####[facility] [address] [place], [address] Potassium [Moles/Vol] 3.6 mmol/L Normal 3.5-5.1 [facility] Comment on above: Performed By: #### L 501.5200, L100.0100, L500.4050, L501.9520, L500.4100, L501.9985, L501.2300 ####[facility] [address] [place], [address] Sodium [Moles/Vol] 132 mmol/L Low 136-145 [facility] Comment on above: Performed By: #### L 501.5200, L100.0100, L500.4050, L501.9520, L500.4100, L501.9985, L501.2300 ####[facility] [address] [place], [address] T PROT 6.8 g/dL Normal 6.4-8.2 [facility] Comment on above: Performed By: #### L 501.5200, L100.0100, L500.4050, L501.9520, L500.4100, L501.9985, L501.2300 ####[facility] [address] [place], [address] Urea nitrogen [Mass/Vol] 22 mg/dL High 7-18 [facility] Comment on above: Performed By: #### L 501.5200, L100.0100, L500.4050, L501.9520, L500.4100, L501.9985, L501.2300 ####[facility] [address] [place], [address] Discharge Instructionon 06-18 Discharge Instruction Normal [facility] Hemoglobin A1con 07-11-2024 HbA1c (Bld) [Mass fraction] 7.0 % High 3.8-5.6 [facility] Comment on above: Result Comment: Norm al < 5.7 % Prediabetic 5.7 - 6.4 % Diabetic >or= 6.5 % Please note range changes. Performed By: #### L 501.5200, L100.0100, L500.4050, L501.9520, L500.4100, L501.9985, L501.2300 ####[facility] [address] [place], [address] Lipid Profileon 07-11-2024 Cholesterol [Mass/Vol] 97 mg/dL Normal 200 [facility] Comment on above: Result Comment: <200 mg/dL Desirable 200-240 mg/dL Borderline >240 mg/dL High Risk Performed By: #### L 501.5200, L100.0100, L500.4050, L501.9520, L500.4100, L501.9985, L501.2300 ####[facility] [address] [place], [place], [phone] Cholesterol in HDL [Mass/Vol] 41 mg/dL Normal [facility] Comment on above: Result Comment: The drugs N-Acetylcysteine and Metamizole may falselydepress this assay. Reference Range HDL <40 mg/dL Low HDL Cholesterol HDL >or= 60 mg/dL High HDL Cholesterol Performed By: #### L 501.5200, L100.0100, L500.4050, L501.9520, L500.4100, L501.9985, L501.2300 ####[facility] [address] [place], [place], [phone] Cholesterol in LDL [Mass/Vol] 34 mg/dL Normal 0-130 [facility] Comment on above: Performed By: #### L 501.5200, L100.0100, L500.4050, L501.9520, L500.4100, L501.9985, L501.2300 ####[facility] [address] [place], [address] Cholesterol in VLDL [Mass/Vol] 22 mg/dL Normal 5-40 [facility] Comment on above: Performed By: #### L 501.5200, L100.0100, L500.4050, L501.9520, L500.4100, L501.9985, L501.2300 ####[facility] [address] [place], [address] Triglyceride [Mass/Vol] 108 mg/dL Normal [facility] Comment on above: Result Comment: The drugs N-Acetylcysteine and Metamizole may falselydepress this assay.Serum Triglycerides Reference Interval Normal <150 mg/dL Borderline high 150 - 199 mg/dL High 200 - 499 mg/dL Very High > or = 500 mg/dL Performed By: #### L 501.5200, L100.0100, L500.4050, L501.9520, L500.4100, L501.9985, L501.2300 ####[facility] [address] [place], [address] Magnesiumon 07-11-2024 Magnesium [Mass/Vol] 2.1 mg/dL Normal 1.6-2.6 [facility] Comment on above: Performed By: #### L 501.5200, L100.0100, L500.4050, L501.9520, L500.4100, L501.9985, L501.2300 ####[facility] [address] [place], [address] Phosphoruson 4 Phosphate [Mass/Vol] 2.7 mg/dL Normal 2.5-4.9 [facility] Comment on above: Performed By: #### L 501.5200, L100.0100, L500.4050, L501.9520, L500.4100, L501.9985, L501.2300 ####[facility] [address] [place], [address] Stress Reporton 07-11-2024 Stress Report Normal [facility] Thyroid Stim Hormone (TSH)on 07-11-2024 TSH 1.450 uIU/mL Normal 0.358-3.740 [facility] Comment on above: Performed By: #### L 501.5200, L100.0100, L500.4050, L501.9520, L500.4100, L501.9985, L501.2300 ####[facility] [address] [place], [address] 12 Lead EKGon 07-10-2024 12 Lead EKG Normal [facility] 12 Lead EKG Normal [facility] 12 Lead EKG Normal [facility] Abdomen/Pelvis without Conto n 07-10-2024 Abdomen/Pelvis without Cont Normal [facility] BNP,B-Type NATRIURETIC PEPTI Suyapa 07-10-2024 Natriuretic peptide B (Bld) [Mass/Vol] 54.9 pg/mL Normal 0-100 [facility] Comment on above: Performed By: #### L 503.6620 ####[facility] [address] [place], [address] Basic Metabolic Profile (BMP )on 07-10-2024 BUN/CRE 21.8 RATIO High - [facility] Comment on above: Order Comment: 1Y Performed By: #### L 500.2500, L100.0100, L501.5425 ####[facility] [address] [place], [address] CA,Total 9.4 mg/dL Normal 8.5-10.1 [facility] Comment on above: Order Comment: 1Y Performed By: #### L 500.2500, L100.0100, L501.5425 ####[facility] [address] [place], [address] Chloride [Moles/Vol] 103 mmol/L Normal 98-107 [facility] Comment on above: Order Comment: 1Y Performed By: #### L 500.2500, L100.0100, L501.5425 ####[facility] [address] [place], [address] CO2 [Moles/Vol] 29.0 mmol/L Normal 21.0-32.0 [facility] Comment on above: Order Comment: 1Y Performed By: #### L 500.2500, L100.0100, L501.5425 ####[facility] [address] [place], [address] Creatinine [Mass/Vol] 1.24 mg/dL Normal 0.70-1.30 [facility] Comment on above: Order Comment: 1Y Result Comment: The validity of the calculated GFR GFRAA in patients over70 years has not been determined. Clinical correlation isessential. Performed By: #### L 500.2500, L100.0100, L501.5425 ####[facility] [address] [place], [address] ECRCL 69.31 ml/min Normal [facility] Comment on above: Order Comment: 1Y Performed By: #### L 500.2500, L100.0100, L501.5425 ####[facility] [address] [place], [address] EST GFR - AA 72 mL/min Normal >60 [facility] Comment on above: Order Comment: 1Y Result Comment: Afri can Malagasy GFR Calc Performed By: #### L 500.2500, L100.0100, L501.5425 ####[facility] [address] [place], [address] GAP 5 Normal 5-15 [facility] Comment on above: Order Comment: 1Y Performed By: #### L 500.2500, L100.0100, L501.5425 ####[facility] [address] [place], [address] GFR/1.73 sq M.predicted among non-blacks MDRD (S/P/Bld) [Vol rate/Area] 60 mL/min/{1.73_m2} Normal >60 [facility] Comment on above: Order Comment: 1Y Result Comment: Non- GFR Calc Performed By: #### L 500.2500, L100.0100, L501.5425 ####[facility] [address] [place], [address] Glucose [Mass/Vol] 152 mg/dL High 74-106 [facility] Comment on above: Order Comment: 1Y Result Comment: Fast ing Glucose result greater than or equal to 126 mg/dLsuggests DIABETES MELLITUS per A.D.A. criteria. Performed By: #### L 500.2500, L100.0100, L501.5425 ####[facility] [address] [place], [address] Potassium [Moles/Vol] 3.8 mmol/L Normal 3.5-5.1 [facility] Comment on above: Order Comment: 1Y Performed By: #### L 500.2500, L100.0100, L501.5425 ####[facility] [address] [place], [address] Sodium [Moles/Vol] 137 mmol/L Normal 136-145 [facility] Comment on above: Order Comment: 1Y Performed By: #### L 500.2500, L100.0100, L501.5425 ####[facility] [address] [place], [address] Urea nitrogen [Mass/Vol] 27 mg/dL High 7-18 [facility] Comment on above: Order Comment: 1Y Performed By: #### L 500.2500, L100.0100, L501.5425 ####[facility] [address] [place], [address] Bedside Glucoseon 10-24-2024 FINGERSTICK GLU 155 mg/dL High 74-106 [facility] Comment on above: Result Comment: URSULA GEMENT OF PATIENT CARE PER NURSING PROTOCOL Performed By: #### L 501.080 ####[facility] [address] [place], [address] FINGERSTICK GLU 173 mg/dL High 74-106 [facility] Comment on above: Result Comment: URSULA GEMENT OF PATIENT CARE PER NURSING PROTOCOL Performed By: #### L 501.080 ####[facility] [address] [place], [address] CBC W/Diff, Automatedon 06-18 Absolute Lymph 1.31 X10 3/uL Normal 0.83-4.51 [facility] Comment on above: Performed By: #### L 500.2500, L100.0100, L501.5425 ####[facility] [address] [place], [address] Absolute Neut 14.3 X10 3/uL High 2.0-7.7 [facility] Comment on above: Performed By: #### L 500.2500, L100.0100, L501.5425 ####[facility] [address] [place], [address] Basophils/100 WBC (Bld) 0.3 % Normal 0-1 [facility] Comment on above: Performed By: #### L 500.2500, L100.0100, L501.5425 ####[facility] [address] [place], [address] Eosinophils/100 WBC (Bld) 2.0 % Normal 0-5 [facility] Comment on above: Performed By: #### L 500.2500, L100.0100, L501.5425 ####[facility] [address] [place], [address] Erythrocyte distribution width (RBC) [Ratio] 13.7 % Normal 11.6-14.6 [facility] Comment on above: Performed By: #### L 500.2500, L100.0100, L501.5425 ####[facility] [address] [place], [address] Hematocrit (Bld) [Volume fraction] 39.2 % Low 40-54 [facility] Comment on above: Performed By: #### L 500.2500, L100.0100, L501.5425 ####[facility] [address] [place], [address] Hemoglobin (Bld) [Mass/Vol] 12.5 g/dL Low 13.0-16. 5 [facility] Comment on above: Performed By: #### L 500.2500, L100.0100, L501.5425 ####[facility] [address] [place], [address] IG% 0.400 Normal 0.0-0.9 [facility] Comment on above: Result Comment: IG% - Immature Granulocytes (promyelocytes, myelocytes andmetamyelocytes) > 1% indicates that a LEFT SHIFT is Present. Performed By: #### L 500.2500, L100.0100, L501.5425 ####[facility] [address] [place], [address] Lymphocytes/100 WBC (Bld) 7.5 % Low 19-41 [facility] Comment on above: Performed By: #### L 500.2500, L100.0100, L501.5425 ####[facility] [address] [place], [address] MCH (RBC) [Entitic mass] 27.5 pg Normal 27.0-32.0 [facility] Comment on above: Performed By: #### L 500.2500, L100.0100, L501.5425 ####[facility] [address] [place], [address] MCHC (RBC) [Mass/Vol] 31.9 g/dL Low 32-36 [facility] Comment on above: Performed By: #### L 500.2500, L100.0100, L501.5425 ####[facility] [address] [place], [address] MCV (RBC) [Entitic vol] 86.2 fL Normal 80-94 [facility] Comment on above: Performed By: #### L 500.2500, L100.0100, L501.5425 ####[facility] [address] [place], [address] Monocytes/100 WBC (Bld) 7.9 % Normal 0-10 [facility] Comment on above: Performed By: #### L 500.2500, L100.0100, L501.5425 ####[facility] [address] [place], [address] Neutrophils/100 WBC (Bld) 81.9 % High 47-70 [facility] Comment on above: Performed By: #### L 500.2500, L100.0100, L501.5425 ####[facility] [address] [place], [address] Nucleated RBC (Bld) [#/Vol] 0 10*3/uL Normal 0-5 [facility] Comment on above: Performed By: #### L 500.2500, L100.0100, L501.5425 ####[facility] [address] [place], [address] Platelet mean volume (Bld) [Entitic vol] 11.3 fL Normal 6.2-12.0 [facility] Comment on above: Performed By: #### L 500.2500, L100.0100, L501.5425 ####[facility] [address] [place], [address] Platelets (Bld) [#/Vol] 255 10*3/uL Normal 150-450 [facility] Comment on above: Performed By: #### L 500.2500, L100.0100, L501.5425 ####[facility] [address] [place], [address] RBC (Bld) [#/Vol] 4.55 10*6/uL Low 4.6-6.2 [facility] Comment on above: Performed By: #### L 500.2500, L100.0100, L501.5425 ####[facility] [address] [place], [address] RDW SD 42.7 fl Normal 35.1-43.9 [facility] Comment on above: Performed By: #### L 500.2500, L100.0100, L501.5425 ####[facility] [address] [place], [address] WBC (Bld) [#/Vol] 17.5 10*3/uL High 4.4-11.0 [facility] Comment on above: Performed By: #### L 500.2500, L100.0100, L501.5425 ####[facility] [address] [place], [address] Chest 1 View (Portable)on Chest 1 View (Portable) Normal [facility] D-Dimer Quantitative (DVT/PE )on 07-10-2024 D-DIMER QUANT 0.39 FEU/ug/m Normal 0.27-0.49 [facility] Comment on above: Result Comment: NORM AL D-Dimer level (<0.50) indicates no DVT or PE. Performed By: #### L 300.8000 ####[facility] [address] [place], [address] Emergency Department Summary on 07-10-2024 Emergency Department Summary Normal [facility] H AND P Exam - Hospitaliston 07-10-2024 H&P Exam - Hospitalist Normal [facility] Hemoglobin A1con 07-10-2024 HbA1c (Bld) [Mass fraction] 7.0 % High 3.8-5.6 [facility] Comment on above: Result Comment: Norm al < 5.7 % Prediabetic 5.7 - 6.4 % Diabetic >or= 6.5 % Please note range changes. Performed By: #### L 501.9985 ####[facility] [address] [place], [address] L501.4020on 07-10-2024 TROPONIN-I HS 6 pg/mL Normal 3.0-78.0 [facility] Comment on above: Order Comment: Comme nts: SPECIMEN #3'TROP' Serial specimen #1, #2 or #3: 3 Result Comment: Plea se Note: New Test Units and Gender Specific Reference Ranges. For more information see Policy Stat Procedure Pierre High Sensitivity Troponin (TNIH) and attachments. Performed By: #### L 501.4020 ####[facility] [address] [place], [address] TROPONIN-I HS 8 pg/mL Normal 3.0-78.0 [facility] Comment on above: Result Comment: Plea se Note: New Test Units and Gender Specific Reference Ranges. For more information see Policy Stat Procedure Pierre High Sensitivity Troponin (TNIH) and attachments. Performed By: #### L [id number] ####[facility] [id number] [place], [address] [id number] 07-10-2024 TROPONIN-I HS 8 pg/mL Normal 3.0-78.0 [facility] Comment on above: Order Comment: 1Y Result Comment: Plea se Note: New Test Units and Gender Specific Reference Ranges. For more information see Policy Stat Procedure Pierre High Sensitivity Troponin (TNIH) and attachments. Performed By: #### L 500.2500, L100.0100, L501.5425 ####[facility] [id number] [place], [address] Lipid Profileon 07-10-2024 Cholesterol [Mass/Vol] 93 mg/dL Normal [facility] Comment on above: Result Comment: <200 mg/dL Desirable 200-240 mg/dL Borderline >240 mg/dL High Risk Performed By: #### L 500.4100 ####[facility] [address] [place], [address] Cholesterol in HDL [Mass/Vol] 38 mg/dL Low [facility] Comment on above: Result Comment: The drugs N-Acetylcysteine and Metamizole may falselydepress this assay. Reference Range HDL <40 mg/dL Low HDL Cholesterol HDL >or= 60 mg/dL High HDL Cholesterol Performed By: #### L 500.4100 ####[facility] [id number] [place], [address] Cholesterol in LDL [Mass/Vol] 40 mg/dL Normal 0-130 [facility] Comment on above: Performed By: #### L 500.4100 ####[facility] [address] [place], [address] Cholesterol in VLDL [Mass/Vol] 15 mg/dL Normal 5-40 [facility] Comment on above: Performed By: #### L 500.4100 ####[facility] [address] [place], [address] Triglyceride [Mass/Vol] 77 mg/dL Normal [facility] Comment on above: Result Comment: The drugs N-Acetylcysteine and Metamizole may falselydepress this assay.Serum Triglycerides Reference Interval Normal <150 mg/dL Borderline high 150 - 199 mg/dL High 200 - 499 mg/dL Very High > or = 500 mg/dL Performed By: #### L 500.4100 ####[facility] [address] [place], [address] Urinalysis, Completeon 07-10 BACTERIA 1+ /hpf Normal None Seen [facility] Comment on above: Order Comment: COLOR OF URINE MAY AFFECT DIPSTICK RESULTS.CLEAN CATCH Performed By: #### L 400.0001 ####[facility] [address] [place], [address] EPI,SQUAMOUS 5-10 SEEN Normal 0-5 [facility] Comment on above: Order Comment: COLOR OF URINE MAY AFFECT DIPSTICK RESULTS.CLEAN CATCH Performed By: #### L 400.0001 ####[facility] [address] [place], [address] Mucus Ql (Urine sed) 1+ /hpf Normal [facility] Comment on above: Order Comment: COLOR OF URINE MAY AFFECT DIPSTICK RESULTS.CLEAN CATCH Performed By: #### L 400.0001 ####[facility] [address] [place], [address] RBC > 100 SEEN Normal 0-5 [facility] Comment on above: Order Comment: COLOR OF URINE MAY AFFECT DIPSTICK RESULTS.CLEAN CATCH Performed By: #### L 400.0001 ####[facility] [address] [place], [address] WBC 50-100 SEEN Normal 0-5 [facility] Comment on above: Order Comment: COLOR OF URINE MAY AFFECT DIPSTICK RESULTS.CLEAN CATCH Performed By: #### L 400.0001 ####[facility] [address] [place], [address] Urine Cultureon 07-10-2024 URC Mixed Gram Positive Organisms Lawrence Count 25,000-50,000 MIXC Mixed contaminants. Submit a new specimen if indicated. Normal [facility] Comment on above: Performed By: #### M 100.2200 ####[facility] [address] [place], [address] Basic Metabolic Profile (BMP )on 07-04-2024 BUN/CRE 16.7 RATIO Normal -20 [facility] Comment on above: Performed By: #### L 500.2500 ####[facility] [address] [place], [address] CA,Total 9.6 mg/dL Normal 8.5-10.1 [facility] Comment on above: Performed By: #### L 500.2500 ####[facility] [address] [place], [address] Chloride [Moles/Vol] 102 mmol/L Normal 98-107 [facility] Comment on above: Performed By: #### L 500.2500 ####[facility] [address] [place], [address] CO2 [Moles/Vol] 26.0 mmol/L Normal 21.0-32.0 [facility] Comment on above: Performed By: #### L 500.2500 ####[facility] [address] [place], [address] Creatinine [Mass/Vol] 1.14 mg/dL Normal 0.70-1.30 [facility] Comment on above: Result Comment: The validity of the calculated GFR GFRAA in patients over70 years has not been determined. Clinical correlation isessential. Performed By: #### L 500.2500 ####[facility] [address] [place], [address] EST GFR - AA 79 mL/min Normal >60 [facility] Comment on above: Result Comment: Afri can Malagasy GFR Calc Performed By: #### L 500.2500 ####[facility] [address] [place], [address] GAP 5 Normal 5-15 [facility] Comment on above: Performed By: #### L 500.2500 ####[facility] [address] [place], [address] GFR/1.73 sq M.predicted among non-blacks MDRD (S/P/Bld) [Vol rate/Area] 66 mL/min/{1.73_m2} Normal >60 [facility] Comment on above: Result Comment: Non- GFR Calc Performed By: #### L 500.2500 ####[facility] [address] [place], [address] Glucose [Mass/Vol] 111 mg/dL High 74-106 [facility] Comment on above: Result Comment: Fast ing Glucose result from 100 to 125 mg/dLsuggests IMPAIRED HOMEOSTASIS per A.D.A. criteria. Performed By: #### L 500.2500 ####[facility] [address] [place], [address] Potassium [Moles/Vol] 4.0 mmol/L Normal 3.5-5.1 [facility] Comment on above: Performed By: #### L 500.2500 ####[facility] [address] [place], [address] Sodium [Moles/Vol] 134 mmol/L Low 136-145 [facility] Comment on above: Performed By: #### L 500.2500 ####[facility] [address] [place], [address] Urea nitrogen [Mass/Vol] 19 mg/dL High 7-18 [facility] Comment on above: Performed By: #### L 500.2500 ####[facility] [address] [place], [address] Cardiology Visit Reporton Cardiology Visit Report Normal [facility] Basic Metabolic Profile (BMP )on 06-24-2024 BUN/CRE 19.3 RATIO Normal 10-20 [facility] Comment on above: Performed By: #### L 500.2500, L100.0100 ####[facility] [address] [place], [address] CA,Total 9.2 mg/dL Normal 8.5-10.1 [facility] Comment on above: Performed By: #### L 500.2500, L100.0100 ####[facility] [address] [place], [address] Chloride [Moles/Vol] 102 mmol/L Normal 98-107 [facility] Comment on above: Performed By: #### L 500.2500, L100.0100 ####[facility] [address] [place], [address] CO2 [Moles/Vol] 25.0 mmol/L Normal 21.0-32.0 [facility] Comment on above: Performed By: #### L 500.2500, L100.0100 ####[facility] [address] [place], [address] Creatinine [Mass/Vol] 1.09 mg/dL Normal 0.70-1.30 [facility] Comment on above: Result Comment: The validity of the calculated GFR GFRAA in patients over70 years has not been determined. Clinical correlation isessential. Performed By: #### L 500.2500, L100.0100 ####[facility] [address] [place], [address] ECRCL 79.37 ml/min Normal [facility] Comment on above: Performed By: #### L 500.2500, L100.0100 ####[facility] [address] [place], [address] EST GFR - AA 84 mL/min Normal >60 [facility] Comment on above: Result Comment: Afri can Malagasy GFR Calc Performed By: #### L 500.2500, L100.0100 ####[facility] [address] [place], [address] GAP 9 Normal 5-15 [facility] Comment on above: Performed By: #### L 500.2500, L100.0100 ####[facility] [address] [place], [address] GFR/1.73 sq M.predicted among non-blacks MDRD (S/P/Bld) [Vol rate/Area] 69 mL/min/{1.73_m2} Normal >60 [facility] Comment on above: Result Comment: Non- GFR Calc Performed By: #### L 500.2500, L100.0100 ####[facility] [address] [place], [address] Glucose [Mass/Vol] 56 mg/dL Low 74-106 [facility] Comment on above: Performed By: #### L 500.2500, L100.0100 ####[facility] [address] [place], [address] Potassium [Moles/Vol] 3.5 mmol/L Normal 3.5-5.1 [facility] Comment on above: Performed By: #### L 500.2500, L100.0100 ####[facility] [address], [address] Sodium [Moles/Vol] 136 mmol/L Normal 136-145 [facility] Comment on above: Performed By: #### L 500.2500, L100.0100 ####[facility] [address] [place], [address] Urea nitrogen [Mass/Vol] 21 mg/dL High 7-18 [facility] Comment on above: Performed By: #### L 500.2500, L100.0100 ####[facility] [address] [place], [address] Bedside Glucoseon 06-24-2024 FINGERSTICK GLU 150 mg/dL High 74-106 [facility] Comment on above: Result Comment: URSULA GEMENT OF PATIENT CARE PER NURSING PROTOCOL Performed By: #### L 501.080 ####[facility] [address] [place], [address] FINGERSTICK GLU 84 mg/dL Normal 74-106 [facility] Comment on above: Result Comment: URSULA GEMENT OF PATIENT CARE PER NURSING PROTOCOL Performed By: #### L 501.080 ####[facility] [address] [place], [address] CBC W/Diff, Automatedon 10-0 8-2024 Absolute Lymph 2.17 X10 3/uL Normal 0.83-4.51 [facility] Comment on above: Performed By: #### L 500.2500, L100.0100 ####[facility] [address] [place], [address] Absolute Neut 6.9 X10 3/uL Normal 2.0-7.7 [facility] Comment on above: Performed By: #### L 500.2500, L100.0100 ####[facility] [address] [place], [address] Basophils/100 WBC (Bld) 0.6 % Normal 0-1 [facility] Comment on above: Performed By: #### L 500.2500, L100.0100 ####[facility] [address] [place], [address] Eosinophils/100 WBC (Bld) 4.6 % Normal 0-5 [facility] Comment on above: Performed By: #### L 500.2500, L100.0100 ####[facility] [address] [place], [address] Erythrocyte distribution width (RBC) [Ratio] 13.7 % Normal 11.6-14.6 [facility] Comment on above: Performed By: #### L 500.2500, L100.0100 ####[facility] [address] [place], [address] Hematocrit (Bld) [Volume fraction] 38.7 % Low 40-54 [facility] Comment on above: Performed By: #### L 500.2500, L100.0100 ####[facility] [address] [place], [address] Hemoglobin (Bld) [Mass/Vol] 12.2 g/dL Low 13.0-16. 5 [facility] Comment on above: Performed By: #### L 500.2500, L100.0100 ####[facility] [address] [place], [address] IG% 0.600 Normal 0.0-0.9 [facility] Comment on above: Result Comment: IG% - Immature Granulocytes (promyelocytes, myelocytes andmetamyelocytes) > 1% indicates that a LEFT SHIFT is Present. Performed By: #### L 500.2500, L100.0100 ####[facility] [address] [place], [address] Lymphocytes/100 WBC (Bld) 19.5 % Normal 19-41 [facility] Comment on above: Performed By: #### L 500.2500, L100.0100 ####[facility] [address] [place], [address] MCH (RBC) [Entitic mass] 26.9 pg Low 27.0-32.0 [facility] Comment on above: Performed By: #### L 500.2500, L100.0100 ####[facility] [address] [place], [address] MCHC (RBC) [Mass/Vol] 31.5 g/dL Low 32-36 [facility] Comment on above: Performed By: #### L 500.2500, L100.0100 ####[facility] [address] [place], [address] MCV (RBC) [Entitic vol] 85.4 fL Normal 80-94 [facility] Comment on above: Performed By: #### L 500.2500, L100.0100 ####[facility] [address] [place], [address] Monocytes/100 WBC (Bld) 12.6 % High 0-10 [facility] Comment on above: Performed By: #### L 500.2500, L100.0100 ####[facility] [address] [place], [address] Neutrophils/100 WBC (Bld) 62.1 % Normal 47-70 [facility] Comment on above: Performed By: #### L 500.2500, L100.0100 ####[facility] [address] [place], [address] Nucleated RBC (Bld) [#/Vol] 0 10*3/uL Normal 0-5 [facility] Comment on above: Performed By: #### L 500.2500, L100.0100 ####[facility] [address] [place], [address] Platelet mean volume (Bld) [Entitic vol] 10.4 fL Normal 6.2-12.0 [facility] Comment on above: Performed By: #### L 500.2500, L100.0100 ####[facility] [address], [address] Platelets (Bld) [#/Vol] 314 10*3/uL Normal 150-450 [facility] Comment on above: Performed By: #### L 500.2500, L100.0100 ####[facility] [address] [place], [address] RBC (Bld) [#/Vol] 4.53 10*6/uL Low 4.6-6.2 [facility] Comment on above: Performed By: #### L 500.2500, L100.0100 ####[facility] [address] [place], [address] RDW SD 42.8 fl Normal 35.1-43.9 [facility] Comment on above: Performed By: #### L 500.2500, L100.0100 ####[facility] [address] [place], [address] WBC (Bld) [#/Vol] 11.1 10*3/uL High 4.4-11.0 [facility] Comment on above: Performed By: #### L 500.2500, L100.0100 ####[facility] [address] [place], [address] Emergency Department Summary on 06-24-2024 Emergency Department Summary Normal [facility] CNOVon 06-23-2024 CNOV Office Visit (SLEWST ) FAISAL ALARCON ([id number]) 1945 M Date Time Provider Department 06/23/24 2:30 PM ABRIL DUVAL During your visit today, we recorded the following information about you: Pulse Respiration Blood pressure Weight 82/minute 18/minute 155/77 136 kg Abril Duval, PAIGE.RN ORTHOPAEDIC 06/23/2024 4:46 PM Signed [facility] New Patient Evaluation PATIENT NAME: Faisal Alarcon DATE OF SERVICE: June 22, 2024 CONSULTING PROVIDER: Osvaldo Travis [address] [facility] [address] REASON FOR CONSULT: Osvaldo Travis sends the patient for an opinion about CJ. My findings and recommendations will be transmitted electronically via shared medical record to the consulting provider. HPI: Faisal Alarcon is a 79 year old male. Accompanied by his daughter Farida. Sleep-related history: CJ, unclear if he has [...] two times a day. Blood-Glucose Meter,Continuous (FREESTYLE MARIELLE 3 READER) [facility] Use to check blood sugar at least four (4) times daily. Uses insulin Blood-Glucose Sensor (FREESTYLE MARIELLE 3 PLUS SENSOR) sayra Apply new sensor every fifteen (15) days to upper arm. colestipol (COLESTID) 1 gram tablet Take 1 tablet (more content not included)... Normal [facility] Ema 06-23-2024 YAKOV Telephone (COLIN) FAISAL ALARCON ([id number]) 1945 M Date Time Provider Department 06/23/24 MATHIEU VIRGEN During your visit today, we recorded the following information about you: Kennedi Frey LPN 06/23/2024 2:07 PM Signed ----- Message from Julianna Hood sent at 06/23/2024 1:51 PM EDT ----- Your vitamin D level is very low. Please consider mhug-rqc-[id number] vitamin D3-2000 units daily. Your white blood [...] to leave message or call back number. Jooobz! message sent to pt, asking them to call back for results. JOSE ARMANDO Corrales M Robin, RN 06/24/2024 4:24 PM Signed Daughter returned call and given provider's message below with verbalized understanding. Daughter agreeable. Scheduled lab appt in 1 mth. Allergies As of Date: 06/23/2024 Noted Allergy Reaction AMOXICILLIN 05/11/2005 Comments: generalized erythema Date Reviewed: 06/23/2024 Reviewed by: Abril Duval APRN.RN ORTHOPAEDIC - Fully Assessed Reason for Visit: Results [95] Prescriptions as of 06/24/2024 - ELIQUIS 5 mg tab(s) Take 1 tablet by mouth two times a day. - Blood-Glucose Meter,Continuous (FREESTYLE MARIELLE 3 READER) [facility] Use to check blood sugar at least four (4) times daily. Uses insulin - Blood-Glucose Sensor (FREESTYLE MARIELLE 3 PLUS SENSOR) sayra Apply new sensor every fifteen (15) days to upper arm. - colestipol (COLESTID) 1 gram tablet Take 1 tablet by mouth once daily. - losartan-hydroCHLOROth iazide (HYZAAR) 100-12.5 mg per tablet Take 1 [...] times a day before meals. Getting through [facility] - dilTIAZem CD (CARDIZEM CD, CARTIA XT) [...] mouth every 12 hours. Prescribed by outside envelope folder - insulin glargine (BASAGLAR KWIKPEN U-100 INSULIN) [...] [J18.9] 09 (more content not included)... Normal [facility] 25(OH)D3 [facility] 2023 25-hydroxyvitamin D3 [Mass/Vol] 15.7 ng/mL Low 31.0-80.0 [facility] Comment on above: Order Comment: Speci men Type: BLOOD SPECIMENOrdering Facility: [facility] Address: [address] [place] [address] Result Comment: Clas sification of 25 [place] Vitamin D status: Deficiency/Insufficiency: < or = 30 ng/ml. Sufficiency/Optimal Levels: 31-80 ng/mL Toxicity: > 100 ng/mL. Test performed by chemiluminescent immunoassay. Performed By: #### 1 989-3 ####[facility] LABCLIA [id number] [address] [id number], [place] [address] [place] CBC W Auto Differential pane l (Bld)on 06-20-2024 Basophils (Bld) [#/Vol] 0.06 10*3/uL Normal <0.11 [facility] Comment on above: Order Comment: Speci men Type: BLOOD SPECIMENOrdering Facility: [facility] Address: [address] [place] [address] Performed By: #### 5 7021-8 ####[facility] LABCLIA [id number] [place] [address] [place] Basophils/100 WBC (Bld) 0.5 % Normal [facility] Comment on above: Order Comment: Speci men Type: BLOOD SPECIMENOrdering Facility: [facility] Address: [address] [place] [address] Performed By: #### 5 7021-8 ####[facility] LABCLIA [id number] [place] [address] [place] Differential cell count method Nom (Bld) Auto Normal [facility] Comment on above: Order Comment: Speci men Type: BLOOD SPECIMENOrdering Facility: [facility] Address: [address] [place] [address] Performed By: #### 5 7021-8 ####[facility] LABCLIA [id number] [place] [address] [place] Eosinophils (Bld) [#/Vol] 0.41 10*3/uL Normal <0.46 [facility] Comment on above: Order Comment: Speci men Type: BLOOD SPECIMENOrdering Facility: [facility] Address: [address] [place] [address] Performed By: #### 5 7021-8 ####[facility] LABCLIA [id number] [place] [address] [place] Eosinophils/100 WBC (Bld) 3.5 % Normal [facility] Comment on above: Order Comment: Speci men Type: BLOOD SPECIMENOrdering Facility: [facility] Address: [address] [place] [address] Performed By: #### 5 7021-8 ####[facility] LABCLIA [id number] [place] [address] [place] Erythrocyte distribution width (RBC) [Ratio] 13.7 % Normal 11.5-15.0 [facility] Comment on above: Order Comment: Speci men Type: BLOOD SPECIMENOrdering Facility: [facility] Address: [address] [place] [address] Performed By: #### 5 7021-8 ####[facility] LABIA [id number] [place] [address] [place] Hematocrit (Bld) [Volume fraction] 38.9 % Low 39.0-51.0 [facility] Comment on above: Order Comment: Speci men Type: BLOOD SPECIMENOrdering Facility: [facility] Address: [address] [place] [address] Performed By: #### 5 7021-8 ####[facility] LABIA [id number] [place] [address] [place] Hemoglobin (Bld) [Mass/Vol] 12.4 g/dL Low 13.0-17. 0 [facility] Comment on above: Order Comment: Speci men Type: BLOOD SPECIMENOrdering Facility: [facility] Address: [address] [place] [address] Performed By: #### 5 7021-8 ####[facility] LABCLIA [id number] [place] [address] [place] Immature granulocytes (Bld) [#/Vol] 0.05 10*3/uL Normal <0.10 [facility] Comment on above: Order Comment: Speci men Type: BLOOD SPECIMENOrdering Facility: [facility] Address: [address] [place] [address] Performed By: #### 5 7021-8 ####[facility] LABCLIA [id number] [place] [address] [place] Immature granulocytes/100 WBC (Bld) 0.4 % Normal [facility] Comment on above: Order Comment: Speci men Type: BLOOD SPECIMENOrdering Facility: [facility] Address: [address] [place] [address] Performed By: #### 5 7021-8 ####[facility] LABCLIA [id number] [place] [address] [place] Lymphocytes (Bld) [#/Vol] 1.53 10*3/uL Normal 1.00-4.0 0 [facility] Comment on above: Order Comment: Speci men Type: BLOOD SPECIMENOrdering Facility: [facility] Address: [address] [place] [address] Performed By: #### 5 7021-8 ####[facility] LABIA [id number] [place] [address] [place] Lymphocytes/100 WBC (Bld) 13.0 % Normal [facility] Comment on above: Order Comment: Speci men Type: BLOOD SPECIMENOrdering Facility: [facility] Address: [address] [place] [address] Performed By: #### 5 7021-8 ####[facility] LABCLIA [id number] [place] [address] [place] MCH (RBC) [Entitic mass] 27.7 pg Normal 26.0-34.0 [facility] Comment on above: Order Comment: Speci men Type: BLOOD SPECIMENOrdering Facility: [facility] Address: [address] [place] [address] Performed By: #### 5 7021-8 ####[facility] LABCLIA [id number] [place] [address] [place] MCHC (RBC) [Mass/Vol] 31.9 g/dL Normal 30.5-36.0 [facility] Comment on above: Order Comment: Speci men Type: BLOOD SPECIMENOrdering Facility: [facility] Address: [address] [place] [address] Performed By: #### 5 7021-8 ####[facility] LABCLIA [id number] [place] [address] [place] MCV (RBC) [Entitic vol] 86.8 fL Normal 80.0-100.0 C [facility] Comment on above: Order Comment: Speci men Type: BLOOD SPECIMENOrdering Facility: [facility] Address: [address] [place] [address] Performed By: #### 5 7021-8 ####[facility] LABIA [id number] [place] [address] [place] Monocytes (Bld) [#/Vol] 1.41 10*3/uL High <0.87 [facility] Comment on above: Order Comment: Speci men Type: BLOOD SPECIMENOrdering Facility: [facility] Address: [address] [place] [address] Performed By: #### 5 7021-8 ####[facility] LABIA [id number] [place] [address] [place] Monocytes/100 WBC (Bld) 12.0 % Normal C [facility] Comment on above: Order Comment: Speci men Type: BLOOD SPECIMENOrdering Facility: [facility] Address: [address] [place] [address] Performed By: #### 5 7021-8 ####[facility] LABIA [id number] [place] [address] [place] Neutrophils (Bld) [#/Vol] 8.29 10*3/uL High 1.45-7.5 0 [facility] Comment on above: Order Comment: Speci men Type: BLOOD SPECIMENOrdering Facility: [facility] Address: [address] [place] [address] Performed By: #### 5 7021-8 ####[facility] LABCLIA [id number] [place] [address] [place] Neutrophils/100 WBC (Bld) 70.6 % Normal [facility] Comment on above: Order Comment: Speci men Type: BLOOD SPECIMENOrdering Facility: [facility] Address: [address] [place] [address] Performed By: #### 5 7021-8 ####[facility] LABCLIA [id number] [place] [address] [place] Nucleated RBC (Bld) [#/Vol] 10*3/uL Normal <0.01 [facility] Comment on above: Order Comment: Speci men Type: BLOOD SPECIMENOrdering Facility: [facility] Address: [address] [place] [address] Performed By: #### 5 7021-8 ####[facility] LABCLIA [id number] [place] [address] [place] Nucleated RBC/100 WBC (Bld) [Ratio] 0.0 /100 WBC Normal [facility] Comment on above: Order Comment: Speci men Type: BLOOD SPECIMENOrdering Facility: [facility] [facility] Address: [address] [place] [address] Performed By: #### 5 7021-8 ####[facility] LABIA [id number] [place] [address] [place] Platelet mean volume (Bld) [Entitic vol] 11.1 fL Normal 9.0-12.7 [facility] Comment on above: Order Comment: Speci men Type: BLOOD SPECIMENOrdering Facility: [facility] Address: [address] [place] [address] Performed By: #### 5 7021-8 ####[facility] LABCLIA [id number] [place] [address] [place] Platelets (Bld) [#/Vol] 294 10*3/uL Normal 150-400 [facility] Comment on above: Order Comment: Speci men Type: BLOOD SPECIMENOrdering Facility: [facility] Address: [address] [place] [address] Performed By: #### 5 7021-8 ####[facility] LABCLIA [id number] [place] [address] [place] RBC (Bld) [#/Vol] 4.48 10*6/uL Normal 4.20-6.00 [facility] Comment on above: Order Comment: Speci men Type: BLOOD SPECIMENOrdering Facility: [facility] Address: [address] [place] [address] Performed By: #### 5 7021-8 ####[facility] LABIA [id number] [place] [address] [place] WBC (Bld) [#/Vol] 11.75 10*3/uL High 3.70-11.00 [facility] Comment on above: Order Comment: Speci men Type: BLOOD SPECIMENOrdering Facility: [facility] Address: [address] [place] [address] Performed By: #### 5 7021-8 ####[facility] LABIA [id number] [place] [address] [place] CK SerPl-cCncon 06-20-2024 CK [Catalytic activity/Vol] 164 U/L Normal 51-298 [facility] Comment on above: Order Comment: Speci men Type: BLOOD SPECIMENOrdering Facility: [facility] Address: [address] [place] [address] Performed By: #### 2 157-6, 3016-3 ####[facility] LABIA [id number] [place] [address] [place] CNOVon 06-20-2024 CNOV Office Visit (FAMPWS ) FAISAL ALARCON ([id number]) 1945 M Date Time Provider Department 06/20/24 3:40 PM MATHIEU VIRGEN During your visit today, we recorded the following information about you: Pulse Blood pressure Weight Height 80/minute 132/56 136.7 kg 1.854 m Mathieu Virgen MD 06/20/2024 5:18 PM Signed Patient [...] Sees sleep medicine on Sunday. Free style marielle script needs sent through [employer] He is wanting us to send his scooter request to [employer]. They had requested a letter in the [...] Take 1 tablet by mouth once daily. losartan-hydroCHLOROth iazide (HYZAAR) 100-12.5 mg per tablet Take 1 [...] times a day before meals. Getting through [facility] dilTIAZem CD (CARDIZEM CD, CARTIA XT) [...] mouth every 12 hours. Prescribed by outside envelope folder No current facility-administered medications for this visit. [...] BX FOR (more content not included)... Normal [facility] TSH SerPl-aCncon 06-20-2024 TSH Qn 1.840 m[IU]/L Normal 0.270-4.200 [facility] Comment on above: Order Comment: Speci men Type: BLOOD SPECIMENOrdering Facility: [facility] Address: [address] [place] [address] Performed By: #### 2 157-6, 3016-3 ####[facility] LABCLIA [id number] [place] [address] [place] CNPSharlene 06-18-2024 [facility]NPN [facility]phone [facility] FAISAL ALARCON ([id number]) 1945 M Date Time Provider Department 06/18/24 MATHIEU VIRGEN During your visit today, we recorded the following information about you: Angleina Bliss RN 06/18/2024 4:31 PM Signed Patient's daughter Farida Beck calling and requesting to speak specifically with PCP nurse, Jaylene. This is in regard to patient's scooter and pt's insurance. Farida [phone]. Thank you. Jaylene Henley LPN 06/20/2024 11:24 AM Signed Patient has visit today. Clinical staff can follow up with daughter at visit. Jaylene Henley LPN 06/25/2024 3:34 PM Signed As of today order for scooter and last OV was faxed to [employer]. Allergies As of Date: 06/18/2024 Noted Allergy Reaction AMOXICILLIN 05/11/2005 Comments: generalized erythema Date Reviewed: 04/12/2024 Reviewed by: Izzy Vargas RN - Fully Assessed Reason for Visit: Patient Question [1017] Prescriptions as of 06/25/2024 - ELIQUIS 5 mg tab(s) Take 1 tablet by mouth two times a day. - Blood-Glucose Meter,Continuous (FREESTYLE MARIELLE 3 READER) [facility] Use to check blood sugar at least four (4) times daily. Uses insulin - Blood-Glucose Sensor (FREESTYLE MARIELLE 3 PLUS SENSOR) [facility]ra Apply new sensor every fifteen (15) days to upper arm. - colestipol (COLESTID) 1 gram tablet Take 1 tablet by mouth once daily. - losartan-hydroCHLOROth iazide (HYZAAR) 100-12.5 mg per tablet Take 1 [...] times a day before meals. Getting through [facility] - dilTIAZem CD (CARDIZEM CD, CARTIA XT) [...] mouth every 12 hours. Prescribed by outside envelope folder - insulin glargine (BASAGLAR KWIKPEN U-100 INSULIN) [...] Diagnosed: 06/06/20 (more content not included)... [facility] YAKOV [facility] ([facility]) ESHAFAISAL PYLE ([id number]) 1945 M Date Time Provider Department 06/17/24 MATHIEU VIRGEN [facility] During your visit today, we recorded the following information about you: Kennedi Frey LPN 06/17/2024 10:15 AM Signed [facility] a [facility] PH: [phone]. She reports receiving information on a scooter. Alison reports this has to go thru pt's [employer] and they will fax all information with details to [facility] for [place] to be done. I called daughter Farida and she reports they are using [employer] fax:[phone] PH: [phone] Spoke with Amairani and after they received the fax they will go thru it and send forms to be filled out and once those have been returned they will [facility] to [facility] . Information fas been faxed. Kennedi Frey LPN Allergies As of Date: 06/17/2024 Noted Allergy Reaction AMOXICILLIN 05/11/2005 Comments: generalized erythema Date Reviewed: 04/12/2024 Reviewed by: Izzy Vargas, NILDA - Fully Assessed Prescriptions as of 06/17/2024 - colestipol (COLESTID) 1 gram tablet Take 1 tablet by mouth once daily. - losartan-hydroCHLOROth iazide (HYZAAR) 100-12.5 mg per tablet Take 1 [...] times a day before meals. Getting through [facility] - dilTIAZem CD (CARDIZEM CD, CARTIA XT) [...] mouth every 12 hours. Prescribed by outside envelope folder - insulin glargine (BASAGLAR KWIKPEN U-100 INSULIN) [...] dehydration [E (more content not included)... Normal [facility] Comprehensive metabolic 2000 panelon 06-11-2024 Albumin [Mass/Vol] 3.9 g/dL Normal 3.9-4.9 [facility] Comment on above: Order Comment: Speci men Type: BLOOD SPECIMENOrdering Facility: [facility] Address: [address] [place] [address] Performed By: #### 2 4323-8 ####[facility] LABCLIA [id number] [place] [address] [place] ALP [Catalytic activity/Vol] 81 U/L Normal 38-113 [facility] Comment on above: Order Comment: Speci men Type: BLOOD SPECIMENOrdering Facility: [facility] Address: [address] [place] [address] Performed By: #### 2 4323-8 ####[facility] LABCLIA [id number] [place] [address] [place] ALT [Catalytic activity/Vol] 23 U/L Normal 10-54 [facility] Comment on above: Order Comment: Speci men Type: BLOOD SPECIMENOrdering Facility: [facility] Address: [address] [place] [address] Performed By: #### 2 4323-8 ####[facility] LABCLIA [id number] [place] [address] [place] Anion gap [Moles/Vol] 15 mmol/L Normal 8-15 [facility] Comment on above: Order Comment: Speci men Type: BLOOD SPECIMENOrdering Facility: [facility] Address: [address] [place] [address] Performed By: #### 2 4323-8 ####[facility] LABCLIA [id number] [address] [id number], [place] [address] [place] AST [Catalytic activity/Vol] 26 U/L Normal 14-40 [facility] Comment on above: Order Comment: Speci men Type: BLOOD SPECIMENOrdering Facility: [facility] Address: [address] [place] [address] Performed By: #### 2 4323-8 ####[facility] LABCLIA [id number] [place] [address] [place] Bilirubin [Mass/Vol] mg/dL Low 0.2-1.3 [facility] Comment on above: Order Comment: Speci men Type: BLOOD SPECIMENOrdering Facility: [facility] Address: [address] [place] [address] Performed By: #### 2 4323-8 ####[facility] LABCLIA [id number] [place] [address] [place] Calcium [Mass/Vol] 9.8 mg/dL Normal 8.5-10.2 [facility] Comment on above: Order Comment: Speci men Type: BLOOD SPECIMENOrdering Facility: [facility] Address: [address] [place] [address] Performed By: #### 2 4323-8 ####[facility] LABCLIA [id number] [place] [address] [place] Chloride [Moles/Vol] 98 mmol/L Normal 98-107 [facility] Comment on above: Order Comment: Speci men Type: BLOOD SPECIMENOrdering Facility: [facility] Address: [address] [place] [address] Performed By: #### 2 4323-8 ####[facility] LABCLIA [id number] [place] [address] [place] CO2 [Moles/Vol] 20 mmol/L Low 22-30 [facility] Comment on above: Order Comment: Speci men Type: BLOOD SPECIMENOrdering Facility: [facility] Address: [address] [place] [address] Performed By: #### 2 4323-8 ####[facility] LABIA [id number] [place] [address] [place] Creatinine [Mass/Vol] 1.19 mg/dL Normal 0.73-1.22 [facility] Comment on above: Order Comment: Speci men Type: BLOOD SPECIMENOrdering Facility: [facility] Address: [address] [place] [address] Performed By: #### 2 4323-8 ####[facility] LABCLIA [id number] [place] [address] [place] Creatinine and Glomerular filtration rate.predicted panel (S/P/Bld) 62 mL/min/1.73m??? Normal >=60 [facility] Comment on above: Order Comment: Speci men Type: BLOOD SPECIMENOrdering Facility: [facility] Address: [address] [place] [address] Result Comment: Racquel mated Glomerular Filtration Rate [...] actual GFR. Performed By: #### 2 4323-8 ####[facility] LABIA [id number] [place] [address] [place] Glucose [Mass/Vol] 169 mg/dL High 74-99 [facility] Comment on above: Order Comment: Speci men Type: BLOOD SPECIMENOrdering Facility: [facility] Address: [address] [place] [address] Result Comment: The [place] Diabetes Association (ADA) provides guidance for cutoff [...] Standards of Medical Care in Diabetes 2016, [place] Diabetes Association. Diabetes Care. 2016.39(Suppl 1). Performed By: #### 2 4323-8 ####[facility] LABCLIA [id number] [place] [address] [place] Potassium [Moles/Vol] 4.8 mmol/L Normal 3.7-5.1 [facility] Comment on above: Order Comment: Speci men Type: BLOOD SPECIMENOrdering Facility: [facility] Address: [address] [place] [address] Performed By: #### 2 4323-8 ####[facility] LABCLIA [id number] [place] [address] [place] Protein [Mass/Vol] 7.4 g/dL Normal 6.3-8.0 [facility] Comment on above: Order Comment: Speci men Type: BLOOD SPECIMENOrdering Facility: [facility] Address: [address] [place] [address] Performed By: #### 2 4323-8 ####[facility] LABCLIA [id number] [place] [address] [place] Sodium [Moles/Vol] 133 mmol/L Low 136-144 [facility] Comment on above: Order Comment: Speci men Type: BLOOD SPECIMENOrdering Facility: [facility] Address: [address] [place] [address] Performed By: #### 2 4323-8 ####[facility] LABCLIA [id number] [place] [address] [place] Urea nitrogen [Mass/Vol] 28 mg/dL High 9-24 [facility] Comment on above: Order Comment: Speci men Type: BLOOD SPECIMENOrdering Facility: [facility] Address: [address] [place] [address] Performed By: #### 2 4323-8 ####[facility] LABIA [id number] [place] [address] [place] HbA1c (Bld)on 06-11-2024 Average glucose Estimated from glycated hemoglobin (Bld) [Mass/Vol] 166 mg/dL Normal [facility] Comment on above: Order Comment: Salvatore estrella Type: BLOOD SPECIMENOrdering Facility: [facility] Address: [address] [place] [address] Result Comment: eAG: (Estimated average glucose) is a calculated value from HgbA1c and is service support representative of the average blood glucose level in the last 2-3 month period. Performed By: #### 5 5454-3 ####[facility] [id number] [place] [address] [place] HbA1c (Bld) [Mass fraction] 7.4 % High 4.3-5.6 [facility] Comment on above: Order Comment: Kayycj de la rosa Type: BLOOD SPECIMENOrdering Facility: [facility] Address: [address] [place] [address] Result Comment: Amer [place] Diabetes Association guidelines indicate that patients with HgbA1c in the range 5.7-6.4% are at increased risk for development of diabetes, and intervention by lifestyle modification may be beneficial. HgbA1c greater or equal to 6.5% is considered diagnostic of diabetes. Performed By: #### 5 5454-3 ####[facility] LABIA [id number] [place] [address] [place] 12 Lead EKGon 06-08-2024 12 Lead EKG Normal [facility] Basic Metabolic Profile (BMP )on 06-08-2024 BUN/CRE 21.8 RATIO High 10-20 [facility] Comment on above: Order Comment: 1Y Performed By: #### L 501.5425, L100.0100, L500.2500 ####[facility] [address] [place], [address] CA,Total 9.6 mg/dL Normal 8.5-10.1 [facility] Comment on above: Order Comment: 1Y Performed By: #### L 501.5425, L100.0100, L500.2500 ####[facility] [address] [place], [address] Chloride [Moles/Vol] 99 mmol/L Normal 98-107 [facility] Comment on above: Order Comment: 1Y Performed By: #### L 501.5425, L100.0100, L500.2500 ####[facility] [address] [place], [address] CO2 [Moles/Vol] 30.0 mmol/L Normal 21.0-32.0 [facility] Comment on above: Order Comment: 1Y Performed By: #### L 501.5425, L100.0100, L500.2500 ####[facility] [address] [place], [address] Creatinine [Mass/Vol] 1.24 mg/dL Normal 0.70-1.30 [facility] Comment on above: Order Comment: 1Y Result Comment: The validity of the calculated GFR GFRAA in patients over70 years has not been determined. Clinical correlation isessential. Performed By: #### L 501.5425, L100.0100, L500.2500 ####[facility] [address] [place], [address] ECRCL 68.78 ml/min Normal [facility] Comment on above: Order Comment: 1Y Performed By: #### L 501.5425, L100.0100, L500.2500 ####[facility] [address] [place], [address] EST GFR - AA 72 mL/min Normal >60 [facility] Comment on above: Order Comment: 1Y Result Comment: Afri can Malagasy GFR Calc Performed By: #### L 501.5425, L100.0100, L500.2500 ####[facility] [address] [place], [address] GAP 5 Normal 5-15 [facility] Comment on above: Order Comment: 1Y Performed By: #### L 501.5425, L100.0100, L500.2500 ####[facility] [address] [place], [address] GFR/1.73 sq M.predicted among non-blacks MDRD (S/P/Bld) [Vol rate/Area] 60 mL/min/{1.73_m2} Normal >60 [facility] Comment on above: Order Comment: 1Y Result Comment: Non- GFR Calc Performed By: #### L 501.5425, L100.0100, L500.2500 ####[facility] [address] [place], [address] Glucose [Mass/Vol] 128 mg/dL High 74-106 [facility] Comment on above: Order Comment: 1Y Result Comment: Fast ing Glucose result greater than or equal to 126 mg/dLsuggests DIABETES MELLITUS per A.D.A. criteria. Performed By: #### L 501.5425, L100.0100, L500.2500 ####[facility] [address] [place], [address] Potassium [Moles/Vol] 4.2 mmol/L Normal 3.5-5.1 [facility] Comment on above: Order Comment: 1Y Performed By: #### L 501.5425, L100.0100, L500.2500 ####[facility] [address] [place], [address] Sodium [Moles/Vol] 134 mmol/L Low 136-145 [facility] Comment on above: Order Comment: 1Y Performed By: #### L 501.5425, L100.0100, L500.2500 ####[facility] [address] [place], [address] Urea nitrogen [Mass/Vol] 27 mg/dL High 7-18 [facility] Comment on above: Order Comment: 1Y Performed By: #### L 501.5425, L100.0100, L500.2500 ####[facility] [address] [place], [address] CBC W/Diff, Automatedon 05-19-2023 Absolute Lymph 1.75 X10 3/uL Normal 0.83-4.51 [facility] Comment on above: Performed By: #### L 501.5425, L100.0100, L500.2500 ####[facility] [address] [place], [address] Absolute Neut 7.3 X10 3/uL Normal 2.0-7.7 [facility] Comment on above: Performed By: #### L 501.5425, L100.0100, L500.2500 ####[facility] [address] [place], [address] Basophils/100 WBC (Bld) 0.4 % Normal 0-1 [facility] Comment on above: Performed By: #### L 501.5425, L100.0100, L500.2500 ####[facility] [address] [place], [address] Eosinophils/100 WBC (Bld) 4.5 % Normal 0-5 [facility] Comment on above: Performed By: #### L 501.5425, L100.0100, L500.2500 ####[facility] [address] [place], [address] Erythrocyte distribution width (RBC) [Ratio] 13.2 % Normal 11.6-14.6 [facility] Comment on above: Performed By: #### L 501.5425, L100.0100, L500.2500 ####[facility] [address] [place], [address] Hematocrit (Bld) [Volume fraction] 40.6 % Normal 40-54 [facility] Comment on above: Performed By: #### L 501.5425, L100.0100, L500.2500 ####[facility] [address] [place], [address] Hemoglobin (Bld) [Mass/Vol] 13.0 g/dL Normal 13.0-16. 5 [facility] Comment on above: Performed By: #### L 501.5425, L100.0100, L500.2500 ####[facility] [address] [place], [address] IG% 0.800 Normal 0.0-0.9 [facility] Comment on above: Result Comment: IG% - Immature Granulocytes (promyelocytes, myelocytes andmetamyelocytes) > 1% indicates that a LEFT SHIFT is Present. Performed By: #### L 501.5425, L100.0100, L500.2500 ####[facility] [address] [place], [address] Lymphocytes/100 WBC (Bld) 15.9 % Low 19-41 [facility] Comment on above: Performed By: #### L 501.5425, L100.0100, L500.2500 ####[facility] [address] [place], [address] MCH (RBC) [Entitic mass] 27.3 pg Normal 27.0-32.0 [facility] Comment on above: Performed By: #### L 501.5425, L100.0100, L500.2500 ####[facility] [address] [place], [address] MCHC (RBC) [Mass/Vol] 32.0 g/dL Normal 32-36 [facility] Comment on above: Performed By: #### L 501.5425, L100.0100, L500.2500 ####[facility] [address] [place], [address] MCV (RBC) [Entitic vol] 85.1 fL Normal 80-94 [facility] Comment on above: Performed By: #### L 501.5425, L100.0100, L500.2500 ####[facility] [address] [place], [address] Monocytes/100 WBC (Bld) 12.4 % High 0-10 [facility] Comment on above: Performed By: #### L 501.5425, L100.0100, L500.2500 ####[facility] [address] [place], [address] Neutrophils/100 WBC (Bld) 66.0 % Normal 47-70 [facility] Comment on above: Performed By: #### L 501.5425, L100.0100, L500.2500 ####[facility] [address] [place], [address] Nucleated RBC (Bld) [#/Vol] 0 10*3/uL Normal 0-5 [facility] Comment on above: Performed By: #### L 501.5425, L100.0100, L500.2500 ####[facility] [address] [place], [address] Platelet mean volume (Bld) [Entitic vol] 10.8 fL Normal 6.2-12.0 [facility] Comment on above: Performed By: #### L 501.5425, L100.0100, L500.2500 ####[facility] [address] [place], [address] Platelets (Bld) [#/Vol] 323 10*3/uL Normal 150-450 [facility] Comment on above: Performed By: #### L 501.5425, L100.0100, L500.2500 ####[facility] [address] [place], [address] RBC (Bld) [#/Vol] 4.77 10*6/uL Normal 4.6-6.2 [facility] Comment on above: Performed By: #### L 501.5425, L100.0100, L500.2500 ####[facility] [address] [place], [address] RDW SD 40.9 fl Normal 35.1-43.9 [facility] Comment on above: Performed By: #### L 501.5425, L100.0100, L500.2500 ####[facility] [address] [place], [address] WBC (Bld) [#/Vol] 11.0 10*3/uL Normal 4.4-11.0 [facility] Comment on above: Performed By: #### L 501.5425, L100.0100, L500.2500 ####[facility] [address] [place], [address] Chest 1 View (Portable)on Chest 1 View (Portable) Normal [facility] Emergency Department Summary on 06-08-2024 Emergency Department Summary Normal [facility] L501.4020on 06-08-2024 TROPONIN-I HS 7 pg/mL Normal 3.0-78.0 [facility] Comment on above: Result Comment: Plea se Note: New Test Units and Gender Specific Reference Ranges. For more information see Policy Stat Procedure Pierre High Sensitivity Troponin (TNIH) and attachments. Performed By: #### L 501.4020 ####[facility] [address] [place], [address] L501.5425on 06-08-2024 TROPONIN-I HS 6 pg/mL Normal 3.0-78.0 [facility] Comment on above: Order Comment: 1Y Result Comment: Plea se Note: New Test Units and Gender Specific Reference Ranges. For more information see Policy Stat Procedure Pierre High Sensitivity Troponin (TNIH) and attachments. Performed By: #### L 501.5425, L100.0100, L500.2500 ####[facility] [address] [place], [address] Urine Cultureon 06-01-2024 URC Culture exhibits no growth. Normal [facility] Comment on above: Performed By: #### M 100.2200 ####[facility] [address] [place], [address] 12 Lead EKGon 05-31-2024 12 Lead EKG Normal [facility] CBC W/Diff, Automatedon 05-18 Absolute Lymph 1.65 X10 3/uL Normal 0.83-4.51 [facility] Comment on above: Performed By: #### L 500.4050, L501.4020, L100.0100 ####[facility] [address] [place], [address] Absolute Neut 8.4 X10 3/uL High 2.0-7.7 [facility] Comment on above: Performed By: #### L 500.4050, L501.4020, L100.0100 ####[facility] [address] [place], [address] Basophils/100 WBC (Bld) 0.4 % Normal 0-1 [facility] Comment on above: Performed By: #### L 500.4050, L501.4020, L100.0100 ####[facility] [address] [place], [address] Eosinophils/100 WBC (Bld) 3.5 % Normal 0-5 [facility] Comment on above: Performed By: #### L 500.4050, L501.4020, L100.0100 ####[facility] [address] [place], [address] Erythrocyte distribution width (RBC) [Ratio] 13.1 % Normal 11.6-14.6 [facility] Comment on above: Performed By: #### L 500.4050, L501.4020, L100.0100 ####[facility] [address] [place], [address] Hematocrit (Bld) [Volume fraction] 40.0 % Normal 40-54 [facility] Comment on above: Performed By: #### L 500.4050, L501.4020, L100.0100 ####[facility] [address] [place], [address] Hemoglobin (Bld) [Mass/Vol] 12.8 g/dL Low 13.0-16. 5 [facility] Comment on above: Performed By: #### L 500.4050, L501.4020, L100.0100 ####[facility] [address] [place], [address] IG% 0.300 Normal 0.0-0.9 [facility] Comment on above: Result Comment: IG% - Immature Granulocytes (promyelocytes, myelocytes andmetamyelocytes) > 1% indicates that a LEFT SHIFT is Present. Performed By: #### L 500.4050, L501.4020, L100.0100 ####[facility] [address] [place], [address] Lymphocytes/100 WBC (Bld) 14.1 % Low 19-41 [facility] Comment on above: Performed By: #### L 500.4050, L501.4020, L100.0100 ####[facility] [address] [place], [address] MCH (RBC) [Entitic mass] 27.1 pg Normal 27.0-32.0 [facility] Comment on above: Performed By: #### L 500.4050, L501.4020, L100.0100 ####[facility] [address] [place], [address] MCHC (RBC) [Mass/Vol] 32.0 g/dL Normal 32-36 [facility] Comment on above: Performed By: #### L 500.4050, L501.4020, L100.0100 ####[facility] [address] [place], [address] MCV (RBC) [Entitic vol] 84.6 fL Normal 80-94 [facility] Comment on above: Performed By: #### L 500.4050, L501.4020, L100.0100 ####[facility] [address] [place], [address] Monocytes/100 WBC (Bld) 10.3 % High 0-10 [facility] Comment on above: Performed By: #### L 500.4050, L501.4020, L100.0100 ####[facility] [address] [place], [address] Neutrophils/100 WBC (Bld) 71.4 % High 47-70 [facility] Comment on above: Performed By: #### L 500.4050, L501.4020, L100.0100 ####[facility] [address] [place], [address] Nucleated RBC (Bld) [#/Vol] 0 10*3/uL Normal 0-5 [facility] Comment on above: Performed By: #### L 500.4050, L501.4020, L100.0100 ####[facility] [address] [place], [address] Platelet mean volume (Bld) [Entitic vol] 10.5 fL Normal 6.2-12.0 [facility] Comment on above: Performed By: #### L 500.4050, L501.4020, L100.0100 ####[facility] [address] [place], [address] Platelets (Bld) [#/Vol] 301 10*3/uL Normal 150-450 [facility] Comment on above: Performed By: #### L 500.4050, L501.4020, L100.0100 ####[facility] [address] [place], [address] RBC (Bld) [#/Vol] 4.73 10*6/uL Normal 4.6-6.2 [facility] Comment on above: Performed By: #### L 500.4050, L501.4020, L100.0100 ####[facility] [address] [place], [address] RDW SD 40.3 fl Normal 35.1-43.9 [facility] Comment on above: Performed By: #### L 500.4050, L501.4020, L100.0100 ####[facility] [address] [place], [address] WBC (Bld) [#/Vol] 11.7 10*3/uL High 4.4-11.0 [facility] Comment on above: Performed By: #### L 500.4050, L501.4020, L100.0100 ####[facility] [address] [place], [address] CNOVon 05-31-2024 [facility] FAISAL ALARCON ([id number]) 1945 M Date Time Provider Department 05/31/24 9:00 AM AMAIRANI MCCLENDON UCWSTR During your visit today, we recorded the following information about you: Amairani Mcclendon APRN.RN ORTHOPAEDIC 05/31/2024 8:58 AM Signed Patient came in [...] erythema Date Reviewed: 04/12/2024 Reviewed by: Izzy Vargas RN - Fully Assessed Primary Visit Diagnosis:Generalized weakness [R53.1] Prescriptions as of 05/31/2024 - losartan-hydroCHLOROth iazide (HYZAAR) 100-12.5 mg per tablet Take 1 [...] times a day before meals. Getting through [facility] - dilTIAZem CD (CARDIZEM CD, CARTIA XT) [...] mouth every 12 hours. Prescribed by outside envelope folder - colestipol (COLESTID) 1 gram tablet Take [...] Diagnosed: 06/06/2023 (more content not included)... Normal [facility] Chest 1 View (Portable)on Chest 1 View (Portable) Normal [facility] Comprehensive Metabolic Prof ilon 05-31-2024 Albumin [Mass/Vol] 3.3 g/dL Normal 3.2-5.0 [facility] Comment on above: Order Comment: 'TROP ' Serial specimen #1, #2 or #3: 1 Performed By: #### L 500.4050, L501.4020, L100.0100 ####[facility] [address] [place], [address] Albumin/Globulin [Mass ratio] 0.8 {ratio} Low 0.9-2.4 [facility] Comment on above: Order Comment: 'TROP ' Serial specimen #1, #2 or #3: 1 Performed By: #### L 500.4050, L501.4020, L100.0100 ####[facility] [address] [place], [address] ALK P 92 U/L Normal 45-117 [facility] Comment on above: Order Comment: 'TROP ' Serial specimen #1, #2 or #3: 1 Performed By: #### L 500.4050, L501.4020, L100.0100 ####[facility] [address] [place], [address] ALT [Catalytic activity/Vol] 23 U/L Normal 16-61 [facility] Comment on above: Order Comment: 'TROP ' Serial specimen #1, #2 or #3: 1 Performed By: #### L 500.4050, L501.4020, L100.0100 ####[facility] [address] [place], [address] AST [Catalytic activity/Vol] 15 U/L Normal 15-37 [facility] Comment on above: Order Comment: 'TROP ' Serial specimen #1, #2 or #3: 1 Performed By: #### L 500.4050, L501.4020, L100.0100 ####[facility] [address] [place], [address] Bilirubin [Mass/Vol] 0.30 mg/dL Normal 0.20-1.00 [facility] Comment on above: Order Comment: 'TROP ' Serial specimen #1, #2 or #3: 1 Result Comment: For patients on eltrombopag therapy, use of Dimension Pierre TBIL is not recommended. Performed By: #### L 500.4050, L501.4020, L100.0100 ####[facility] [address] [place], [address] BUN/CRE 18.0 RATIO Normal 10-20 [facility] Comment on above: Order Comment: 'TROP ' Serial specimen #1, #2 or #3: 1 Performed By: #### L 500.4050, L501.4020, L100.0100 ####[facility] [address] [place], [address] CA,Total 9.9 mg/dL Normal 8.5-10.1 [facility] Comment on above: Order Comment: 'TROP ' Serial specimen #1, #2 or #3: 1 Performed By: #### L 500.4050, L501.4020, L100.0100 ####[facility] [address] [place], [address] Chloride [Moles/Vol] 97 mmol/L Low 98-107 [facility] Comment on above: Order Comment: 'TROP ' Serial specimen #1, #2 or #3: 1 Performed By: #### L 500.4050, L501.4020, L100.0100 ####[facility] [address] [place], [address] CO2 [Moles/Vol] 25.0 mmol/L Normal 21.0-32.0 [facility] Comment on above: Order Comment: 'TROP ' Serial specimen #1, #2 or #3: 1 Performed By: #### L 500.4050, L501.4020, L100.0100 ####[facility] [address] [place], [address] Creatinine [Mass/Vol] 1.33 mg/dL High 0.70-1.30 [facility] Comment on above: Order Comment: 'TROP ' Serial specimen #1, #2 or #3: 1 Result Comment: The validity of the calculated GFR GFRAA in patients over70 years has not been determined. Clinical correlation isessential. Performed By: #### L 500.4050, L501.4020, L100.0100 ####[facility] [address] [place], [address] ECRCL 63.90 ml/min Normal [facility] Comment on above: Order Comment: 'TROP ' Serial specimen #1, #2 or #3: 1 Performed By: #### L 500.4050, L501.4020, L100.0100 ####[facility] [address] [place], [address] EST GFR - AA 67 mL/min Normal >60 [facility] Comment on above: Order Comment: 'TROP ' Serial specimen #1, #2 or #3: 1 Result Comment: Afri can Malagasy GFR Calc Performed By: #### L 500.4050, L501.4020, L100.0100 ####[facility] [address] [place], [address] GAP 9 Normal 5-15 [facility] Comment on above: Order Comment: 'TROP ' Serial specimen #1, #2 or #3: 1 Performed By: #### L 500.4050, L501.4020, L100.0100 ####[facility] [address] [place], [address] GFR/1.73 sq M.predicted among non-blacks MDRD (S/P/Bld) [Vol rate/Area] 55 mL/min/{1.73_m2} Low >60 [facility] Comment on above: Order Comment: 'TROP ' Serial specimen #1, #2 or #3: 1 Result Comment: Non- GFR Calc Performed By: #### L 500.4050, L501.4020, L100.0100 ####[facility] [address] [place], [address] Globulin (S) [Mass/Vol] 4.2 g/dL Normal 2.2-4.2 [facility] Comment on above: Order Comment: 'TROP ' Serial specimen #1, #2 or #3: 1 Performed By: #### L 500.4050, L501.4020, L100.0100 ####[facility] [address], [address] Glucose [Mass/Vol] 201 mg/dL High 74-106 [facility] Comment on above: Order Comment: 'TROP ' Serial specimen #1, #2 or #3: 1 Result Comment: Gluc ose result greater than or equal to 200 mg/dLsuggests DIABETES MELLITUS per A.D.A. criteria. Performed By: #### L 500.4050, L501.4020, L100.0100 ####[facility] [address] [place], [address] Potassium [Moles/Vol] 4.3 mmol/L Normal 3.5-5.1 [facility] Comment on above: Order Comment: 'TROP ' Serial specimen #1, #2 or #3: 1 Performed By: #### L 500.4050, L501.4020, L100.0100 ####[facility] [address] [place], [address] Sodium [Moles/Vol] 131 mmol/L Low 136-145 [facility] Comment on above: Order Comment: 'TROP ' Serial specimen #1, #2 or #3: 1 Performed By: #### L 500.4050, L501.4020, L100.0100 ####[facility] [address] [place], [address] T PROT 7.5 g/dL Normal 6.4-8.2 [facility] Comment on above: Order Comment: 'TROP ' Serial specimen #1, #2 or #3: 1 Performed By: #### L 500.4050, L501.4020, L100.0100 ####[facility] [address] [place], [address] Urea nitrogen [Mass/Vol] 24 mg/dL High 7-18 [facility] Comment on above: Order Comment: 'TROP ' Serial specimen #1, #2 or #3: 1 Performed By: #### L 500.4050, L501.4020, L100.0100 ####[facility] [address] [place], [address] Emergency Department Summary on 05-31-2024 Emergency Department Summary Normal [facility] L501.4020on 05-31-2024 TROPONIN-I HS 7 pg/mL Normal 3.0-78.0 [facility] Comment on above: Order Comment: 'TROP ' Serial specimen #1, #2 or #3: 1 Result Comment: Hannah irwin Note: New Test Units and Gender Specific Reference Ranges. For more information see Policy Stat Procedure Pierre High Sensitivity Troponin (TNIH) and attachments. Performed By: #### L 500.4050, L501.4020, L100.0100 ####[facility] [address] [place], [address] M100.678on 05-31-2024 M100.678 Pending SARS-CoV-2 (COVID 19) Negative INFLUENZA A Negative INFLUENZA B Negative RSV PCR Negative Normal [facility] Comment on above: Performed By: #### M 100.678 ####[facility] [address] [place], [address] Urinalysis, Completeon 05-31 BACTERIA 1+ /hpf Normal None Seen [facility] Comment on above: Order Comment: GO CTOR TO SPECIFY Performed By: #### L 400.0001 ####[facility] [address] [place], [address] RBC 5-10 SEEN Normal 0-5 [facility] Comment on above: Order Comment: COLLE CTOR TO SPECIFY Performed By: #### L 400.0001 ####[facility] [address] [place], [address] WBC 50-100 SEEN Normal 0-5 [facility] Comment on above: Order Comment: COLLE CTOR TO SPECIFY Performed By: #### L 400.0001 ####[facility] [address] [place], [address] EPI,SQUAMOUS 0 SEEN Normal 0-5 [facility] Comment on above: Order Comment: GO CTOR TO SPECIFY Performed By: #### L 400.0001 ####[facility] [address] [place], [address] Mucus Ql (Urine sed) 0 SEEN Normal [facility] Comment on above: Order Comment: GO CTOR TO SPECIFY Performed By: #### L 400.0001 ####[facility] [address] [place], [address] Bedside Glucoseon 05-09-2024 FINGERSTICK GLU 125 mg/dL High 74-106 [facility] Comment on above: Result Comment: URSULA GEMENT OF PATIENT CARE PER NURSING PROTOCOL Performed By: #### L 501.080 ####[facility] [address] [place], [address] FINGERSTICK GLU 291 mg/dL High 74-106 [facility] Comment on above: Result Comment: URSULA GEMENT OF PATIENT CARE PER NURSING PROTOCOL Performed By: #### L 501.080 ####[facility] [address] [place], [address] FINGERSTICK GLU 129 mg/dL High 74-106 [facility] Comment on above: Result Comment: URSULA GEMENT OF PATIENT CARE PER NURSING PROTOCOL Performed By: #### L 501.080 ####[facility] [address] [place], [address] CBC W/Diff, Automatedon 04-18 PATH REV Reviewed Normal [facility] Comment on above: Result Comment: Neut rophilic leukocytosis.Clinical correlation necessary.Callum Arteaga M.D. 05/09/24 AMENDED REPORT 05/09/24 1211 PATH REV previously reported as: May joana Performed By: #### L 500.4050, L100.0100 ####[facility] [address] [place], [address] Comprehensive Metabolic Prof ilon 05-09-2024 Albumin [Mass/Vol] 3.4 g/dL Normal 3.2-5.0 [facility] Comment on above: Performed By: #### L 500.4050, L100.0100 ####[facility] [address] [place], [address] Albumin/Globulin [Mass ratio] 0.9 {ratio} Normal 0.9-2.4 [facility] Comment on above: Performed By: #### L 500.4050, L100.0100 ####[facility] [address] [place], [address] ALK P 67 U/L Normal 45-117 [facility] Comment on above: Performed By: #### L 500.4050, L100.0100 ####[facility] [address] [place], [address] ALT [Catalytic activity/Vol] 26 U/L Normal 16-61 [facility] Comment on above: Performed By: #### L 500.4050, L100.0100 ####[facility] [address] [place], [address] AST [Catalytic activity/Vol] 33 U/L Normal 15-37 [facility] Comment on above: Performed By: #### L 500.4050, L100.0100 ####[facility] [address] [place], [address] Bilirubin [Mass/Vol] 0.30 mg/dL Normal 0.20-1.00 [facility] Comment on above: Result Comment: For patients on eltrombopag therapy, use of Dimension Pierre TBIL is not recommended. Performed By: #### L 500.4050, L100.0100 ####[facility] [address] [place], [address] BUN/CRE 21.9 RATIO High 10-20 [facility] Comment on above: Performed By: #### L 500.4050, L100.0100 ####[facility] [address] [place], [address] CA,Total 9.1 mg/dL Normal 8.5-10.1 [facility] Comment on above: Performed By: #### L 500.4050, L100.0100 ####[facility] [address] [place], [address] Chloride [Moles/Vol] 102 mmol/L Normal 98-107 [facility] Comment on above: Performed By: #### L 500.4050, L100.0100 ####[facility] [address] [place], [address] CO2 [Moles/Vol] 26.0 mmol/L Normal 21.0-32.0 [facility] Comment on above: Performed By: #### L 500.4050, L100.0100 ####[facility] [address] [place], [address] Creatinine [Mass/Vol] 1.05 mg/dL Normal 0.70-1.30 [facility] Comment on above: Result Comment: The validity of the calculated GFR GFRAA in patients over70 years has not been determined. Clinical correlation isessential. Performed By: #### L 500.4050, L100.0100 ####[facility] [address] [place], [address] ECRCL 82.43 ml/min Normal [facility] Comment on above: Performed By: #### L 500.4050, L100.0100 ####[facility] [address] [place], [address] EST GFR - AA 87 mL/min Normal >60 [facility] Comment on above: Result Comment: Afri can Malagasy GFR Calc Performed By: #### L 500.4050, L100.0100 ####[facility] [address] [place], [address] GAP 7 Normal 5-15 [facility] Comment on above: Performed By: #### L 500.4050, L100.0100 ####[facility] [address] [place], [address] GFR/1.73 sq M.predicted among non-blacks MDRD (S/P/Bld) [Vol rate/Area] 72 mL/min/{1.73_m2} Normal >60 [facility] Comment on above: Result Comment: Non- GFR Calc Performed By: #### L 500.4050, L100.0100 ####[facility] [address] [place], [address] Globulin (S) [Mass/Vol] 3.7 g/dL Normal 2.2-4.2 [facility] Comment on above: Performed By: #### L 500.4050, L100.0100 ####[facility] [address] [place], [address] Glucose [Mass/Vol] 134 mg/dL High 74-106 [facility] Comment on above: Result Comment: Fast ing Glucose result greater than or equal to 126 mg/dLsuggests DIABETES MELLITUS per A.D.A. criteria. Performed By: #### L 500.4050, L100.0100 ####[facility] [address] [place], [address] Potassium [Moles/Vol] 4.2 mmol/L Normal 3.5-5.1 [facility] Comment on above: Performed By: #### L 500.4050, L100.0100 ####[facility] [address] [place], [address] Sodium [Moles/Vol] 135 mmol/L Low 136-145 [facility] Comment on above: Performed By: #### L 500.4050, L100.0100 ####[facility] [address] [place], [address] T PROT 7.1 g/dL Normal 6.4-8.2 [facility] Comment on above: Performed By: #### L 500.4050, L100.0100 ####[facility] [address] [place], [address] Urea nitrogen [Mass/Vol] 23 mg/dL High 7-18 [facility] Comment on above: Performed By: #### L 500.4050, L100.0100 ####[facility] [address] [place], [address] Discharge Instructionon 04-18 Discharge Instruction Normal [facility] 12 Lead EKGon 05-08-2024 12 Lead EKG Normal [facility] Basic Metabolic Profile (BMP )on 05-08-2024 BUN/CRE 21.3 RATIO High 10-20 [facility] Comment on above: Performed By: #### L 500.2500, L100.0100 ####[facility] [address] [place], [address] CA,Total 9.1 mg/dL Normal 8.5-10.1 [facility] Comment on above: Performed By: #### L 500.2500, L100.0100 ####[facility] [address] [place], [address] Chloride [Moles/Vol] 100 mmol/L Normal 98-107 [facility] Comment on above: Performed By: #### L 500.2500, L100.0100 ####[facility] [address] [place], [address] CO2 [Moles/Vol] 25.0 mmol/L Normal 21.0-32.0 [facility] Comment on above: Performed By: #### L 500.2500, L100.0100 ####[facility] [address] [place], [address] Creatinine [Mass/Vol] 1.22 mg/dL Normal 0.70-1.30 [facility] Comment on above: Result Comment: The validity of the calculated GFR GFRAA in patients over70 years has not been determined. Clinical correlation isessential. Performed By: #### L 500.2500, L100.0100 ####[facility] [address] [place], [address] ECRCL 70.94 ml/min Normal [facility] Comment on above: Performed By: #### L 500.2500, L100.0100 ####[facility] [address] [place], [address] EST GFR - AA 74 mL/min Normal >60 [facility] Comment on above: Result Comment: Afri can Malagasy GFR Calc Performed By: #### L 500.2500, L100.0100 ####[facility] [address] [place], [address] GAP 6 Normal 5-15 [facility] Comment on above: Performed By: #### L 500.2500, L100.0100 ####[facility] [address] [place], [address] GFR/1.73 sq M.predicted among non-blacks MDRD (S/P/Bld) [Vol rate/Area] 61 mL/min/{1.73_m2} Normal >60 [facility] Comment on above: Result Comment: Non- GFR Calc Performed By: #### L 500.2500, L100.0100 ####[facility] [address] [place], [address] Glucose [Mass/Vol] 186 mg/dL High 74-106 [facility] Comment on above: Result Comment: Fast ing Glucose result greater than or equal to 126 mg/dLsuggests DIABETES MELLITUS per A.D.A. criteria. Performed By: #### L 500.2500, L100.0100 ####[facility] [address] [place], [address] Potassium [Moles/Vol] 4.9 mmol/L Normal 3.5-5.1 [facility] Comment on above: Performed By: #### L 500.2500, L100.0100 ####[facility] [address] [place], [address] Sodium [Moles/Vol] 131 mmol/L Low 136-145 [facility] Comment on above: Performed By: #### L 500.2500, L100.0100 ####[facility] [address] [place], [address] Urea nitrogen [Mass/Vol] 26 mg/dL High 7-18 [facility] Comment on above: Performed By: #### L 500.2500, L100.0100 ####[facility] [address] [place], [address] Bedside Glucoseon 05-08-2024 FINGERSTICK GLU 192 mg/dL High 74-106 [facility] Comment on above: Result Comment: URSULA GEMENT OF PATIENT CARE PER NURSING PROTOCOL Performed By: #### L 501.080 ####[facility] [address] [place], [address] FINGERSTICK GLU 290 mg/dL High 74-106 [facility] Comment on above: Result Comment: URSULA GEMENT OF PATIENT CARE PER NURSING PROTOCOL Performed By: #### L 501.080 ####[facility] [address] [place], [address] FINGERSTICK GLU 269 mg/dL High 74-106 [facility] Comment on above: Result Comment: URSULA GEMENT OF PATIENT CARE PER NURSING PROTOCOL Performed By: #### L 501.080 ####[facility] [address] [place], [address] FINGERSTICK GLU 161 mg/dL High 74-106 [facility] Comment on above: Result Comment: URSULA CHAMBERS OF PATIENT CARE PER NURSING PROTOCOL Performed By: #### L 501.080 ####[facility] [address] [place], [address] CBC W/Diff, Automatedon 08-2 -2023 Absolute Lymph 0.84 X10 3/uL Normal 0.83-4.51 [facility] Comment on above: Performed By: #### L 500.2500, L100.0100 ####[facility] [address] [place], [address] Absolute Neut 10.8 X10 3/uL High 2.0-7.7 [facility] Comment on above: Performed By: #### L 500.2500, L100.0100 ####[facility] [address] [place], [address] Basophils/100 WBC (Bld) 0.2 % Normal 0-1 [facility] Comment on above: Performed By: #### L 500.2500, L100.0100 ####[facility] [address] [place], [address] Eosinophils/100 WBC (Bld) 0.1 % Normal 0-5 [facility] Comment on above: Performed By: #### L 500.2500, L100.0100 ####[facility] [address] [place], [address] Erythrocyte distribution width (RBC) [Ratio] 13.4 % Normal 11.6-14.6 [facility] Comment on above: Performed By: #### L 500.2500, L100.0100 ####[facility] [address] [place], [address] Hematocrit (Bld) [Volume fraction] 39.4 % Low 40-54 [facility] Comment on above: Performed By: #### L 500.2500, L100.0100 ####[facility] [address] [place], [address] Hemoglobin (Bld) [Mass/Vol] 12.6 g/dL Low 13.0-16. 5 [facility] Comment on above: Performed By: #### L 500.2500, L100.0100 ####[facility] [address] [place], [address] IG% 0.400 Normal 0.0-0.9 [facility] Comment on above: Result Comment: IG% - Immature Granulocytes (promyelocytes, myelocytes andmetamyelocytes) > 1% indicates that a LEFT SHIFT is Present. Performed By: #### L 500.2500, L100.0100 ####[facility] [address] [place], [address] Lymphocytes/100 WBC (Bld) 6.7 % Low 19-41 [facility] Comment on above: Performed By: #### L 500.2500, L100.0100 ####[facility] [address] [place], [address] MCH (RBC) [Entitic mass] 27.6 pg Normal 27.0-32.0 [facility] Comment on above: Performed By: #### L 500.2500, L100.0100 ####[facility] [address] [place], [address] MCHC (RBC) [Mass/Vol] 32.0 g/dL Normal 32-36 [facility] Comment on above: Performed By: #### L 500.2500, L100.0100 ####[facility] [address] [place], [address] MCV (RBC) [Entitic vol] 86.2 fL Normal 80-94 [facility] Comment on above: Performed By: #### L 500.2500, L100.0100 ####[facility] [address] [place], [address] Monocytes/100 WBC (Bld) 7.1 % Normal 0-10 [facility] Comment on above: Performed By: #### L 500.2500, L100.0100 ####[facility] [address] [place], [address] Neutrophils/100 WBC (Bld) 85.5 % High 47-70 [facility] Comment on above: Performed By: #### L 500.2500, L100.0100 ####[facility] [address] [place], [address] Nucleated RBC (Bld) [#/Vol] 0 10*3/uL Normal 0-5 [facility] Comment on above: Performed By: #### L 500.2500, L100.0100 ####[facility] [address] [place], [address] Platelet mean volume (Bld) [Entitic vol] 10.7 fL Normal 6.2-12.0 [facility] Comment on above: Performed By: #### L 500.2500, L100.0100 ####[facility] [address] [place], [address] Platelets (Bld) [#/Vol] 247 10*3/uL Normal 150-450 [facility] Comment on above: Performed By: #### L 500.2500, L100.0100 ####[facility] [address] [place], [address] RBC (Bld) [#/Vol] 4.57 10*6/uL Low 4.6-6.2 [facility] Comment on above: Performed By: #### L 500.2500, L100.0100 ####[facility] [address] [place], [address] RDW SD 42.3 fl Normal 35.1-43.9 [facility] Comment on above: Performed By: #### L 500.2500, L100.0100 ####[facility] [address] [place], [address] WBC (Bld) [#/Vol] 12.6 10*3/uL High 4.4-11.0 [facility] Comment on above: Performed By: #### L 500.2500, L100.0100 ####[facility] [address] [place], [address] Emergency Department Summary on 05-08-2024 Emergency Department Summary Normal [facility] L501.4020on 05-08-2024 TROPONIN-I HS 10 pg/mL Normal 3.0-78.0 [facility] Comment on above: Order Comment: 'TROP ' Serial specimen #1, #2 or #3: 3 Result Comment: Plea se Note: New Test Units and Gender Specific Reference Ranges. For more information see Policy Stat Procedure Pierre High Sensitivity Troponin (TNIH) and attachments. Performed By: #### L 501.4020 ####[facility] [address] [place], [address] TROPONIN-I HS 8 pg/mL Normal 3.0-78.0 [facility] Comment on above: Order Comment: 'TROP ' Serial specimen #1, #2 or #3: 2 Result Comment: Plea se Note: New Test Units and Gender Specific Reference Ranges. For more information see Policy Stat Procedure Pierre High Sensitivity Troponin (TNIH) and attachments. Performed By: #### L 501.4020 ####[facility] [address] [place], [address] TROPONIN-I HS 8 pg/mL Normal 3.0-78.0 [facility] Comment on above: Order Comment: 'TROP ' Serial specimen #1, #2 or #3: 1 Result Comment: Plea se Note: New Test Units and Gender Specific Reference Ranges. For more information see Policy Stat Procedure Pierre High Sensitivity Troponin (TNIH) and attachments. Performed By: #### L 501.4020 ####[facility] [address] [place], [address] Magnesiumon 05-08-2024 Magnesium [Mass/Vol] 2.1 mg/dL Normal 1.6-2.6 [facility] Comment on above: Order Comment: Comme nts: may add to ED labs Performed By: #### L 501.5200 ####[facility] [address] [place], [address] Urinalysis, Completeon 05-08 BACTERIA 2+ /hpf Normal None Seen [facility] Comment on above: Order Comment: COLOR OF URINE MAY AFFECT DIPSTICK RESULTS.CATHETER SPECIMEN Performed By: #### L 400.0001 ####[facility] [address] [place], [address] RBC > 100 SEEN Normal 0-5 [facility] Comment on above: Order Comment: COLOR OF URINE MAY AFFECT DIPSTICK RESULTS.CATHETER SPECIMEN Result Comment: Micr oscopic field is filled. Other elements may beobscured. Performed By: #### L 400.0001 ####[facility] [address] [place], [address] EPI,SQUAMOUS 0 SEEN Normal 0-5 [facility] Comment on above: Order Comment: COLOR OF URINE MAY AFFECT DIPSTICK RESULTS.CATHETER SPECIMEN Performed By: #### L 400.0001 ####[facility] [address] [place], [address] Mucus Ql (Urine sed) 0 SEEN Normal [facility] Comment on above: Order Comment: COLOR OF URINE MAY AFFECT DIPSTICK RESULTS.CATHETER SPECIMEN Performed By: #### L 400.0001 ####[facility] [address] [place], [address] WBC 0 SEEN Normal 0-5 [facility] Comment on above: Order Comment: COLOR OF URINE MAY AFFECT DIPSTICK RESULTS.CATHETER SPECIMEN Performed By: #### L 400.0001 ####[facility] [address] [place], [address] Bedside Glucoseon 05-07-2024 FINGERSTICK GLU 155 mg/dL High 74-106 [facility] Comment on above: Result Comment: URSULA CHAMBERS OF PATIENT CARE PER NURSING PROTOCOL Performed By: #### L 501.080 ####[facility] [address] [place], [address] CD31 (initial)on 05-07-2024 CD31 (initial) Normal [facility] Comment on above: Performed By: #### P CD31 ####[facility] [address] [place], [address] Discharge Instructionon 04-18 Discharge Instruction Normal [facility] HBA1C (OUTSIDE)on 05-07-2024 [facility] Hemoglobin A1con 05-07-2024 HbA1c (Bld) [Mass fraction] 7.2 % High 3.8-5.6 [facility] Comment on above: Result Comment: Norm al < 5.7 % Prediabetic 5.7 - 6.4 % Diabetic >or= 6.5 % Please note range changes. Performed By: #### L 501.9985 ####[facility] [address] [place], [address] MR/POSTOP.ANEon 05-07-2024 MR/POSTOP.ANE Normal [facility] MR/POSTOP.ANE Normal [facility] MR/[id number] 05-07-2024 MR/POSTOPAN2 Normal [facility] Operative Reporton Operative Report Normal [facility] Surgery Specimen Level Von 0 05-07-2024 Surgery Specimen Level V Normal [facility] Comment on above: Performed By: #### P SUV ####[facility] [address] [place], [address] Cardiology Visit Reporton Cardiology Visit Report Normal [facility] Basic metabolic 2000 panelon 04-12-2024 Anion gap [Moles/Vol] 14 mmol/L Normal 8-15 [facility] Comment on above: Order Comment: Speci men Type: BLOOD SPECIMEN Ordering Facility: [facility] Address: [address] [place] [address] Performed By: #### 2 4321-2 #### [facility] CLIA [id number] [address] [place] [address] [place] Calcium [Mass/Vol] 9.6 mg/dL Normal 8.5-10.2 [facility] Comment on above: Order Comment: Speci men Type: BLOOD SPECIMEN Ordering Facility: [facility] Address: [address] [place] [address] Performed By: #### 2 4321-2 #### [facility] CLIA [id number] [address] [place] [address] [place] Chloride [Moles/Vol] 97 mmol/L Low 98-107 [facility] Comment on above: Order Comment: Speci men Type: BLOOD SPECIMEN Ordering Facility: [facility] Address: [address] [place] [address] Performed By: #### 2 4321-2 #### [facility] CLIA [id number] [address] [place] [address] [place] CO2 [Moles/Vol] 22 mmol/L Normal 22-30 [facility] Comment on above: Order Comment: Speci men Type: BLOOD SPECIMEN Ordering Facility: [facility] Address: [address] [place] [address] Performed By: #### 2 4321-2 #### [facility] CLIA [id number] [address] [place] [address] [place] Creatinine [Mass/Vol] 1.10 mg/dL Normal 0.73-1.22 [facility] Comment on above: Order Comment: Speci men Type: BLOOD SPECIMEN Ordering Facility: [facility] Address: [address] [place] [address] Performed By: #### 2 4321-2 #### [facility] CLIA [id number] [address] [place] [address] [place] Creatinine and Glomerular filtration rate.predicted panel (S/P/Bld) 68 mL/min/1.73m??? Normal >=60 [facility] Comment on above: Order Comment: Salvatore de la rosa Type: BLOOD SPECIMEN Ordering Facility: [facility] Address: [address] [place] [address] Result Comment: Racquel mated Glomerular Filtration Rate [...] GFR. Performed By: #### 2 4321-2 #### [facility] CLIA [id number] [address] [place] [address] [place] Glucose [Mass/Vol] 199 mg/dL High 74-99 [facility] Comment on above: Order Comment: Speccj de la rosa Type: BLOOD SPECIMEN Ordering Facility: [facility] Address: [address] [place] [address] Result Comment: The [place] [employer] (ADA) provides guidance for cutoff [...] Standards of Medical Care in Diabetes 2016, [place] [employer]. Diabetes Care. 2016.39(Suppl 1). Performed By: #### 2 4321-2 #### [facility] CLIA [id number] [address] [place] [address] [place] Potassium [Moles/Vol] 4.2 mmol/L Normal 3.7-5.1 [facility] Comment on above: Order Comment: Speci men Type: BLOOD SPECIMEN Ordering Facility: [facility] Address: [address] [place] [address] Performed By: #### 2 4321-2 #### [facility] CLIA [id number] [address] [place] Sodium [Moles/Vol] 133 mmol/L Low 136-144 [facility] Comment on above: Order Comment: Speci men Type: BLOOD SPECIMEN Ordering Facility: [facility] Address: [address] [place] [address] Performed By: #### 2 4321-2 #### [facility] CLIA [id number] [address] [place] Urea nitrogen [Mass/Vol] 27 mg/dL High 9-24 [facility] Comment on above: Order Comment: Speci men Type: BLOOD SPECIMEN Ordering Facility: [facility] Address: [address] [place] [address] Performed By: #### 2 4321-2 #### [facility] CLIA [id number] [address] [place] CBC W Auto Differential pane l (Bld)on 04-12-2024 Basophils (Bld) [#/Vol] 0.06 10*3/uL Normal <0.11 [facility] Comment on above: Order Comment: Speci men Type: BLOOD SPECIMEN Ordering Facility: [facility] Address: [address] [place] [address] Performed By: #### 5 7021-8 #### [facility] CLIA [id number] [address] [place] Basophils/100 WBC (Bld) 0.5 % Normal A [facility] Comment on above: Order Comment: Speci men Type: BLOOD SPECIMEN Ordering Facility: [facility] Address: [address] [place] [address] Performed By: #### 5 7021-8 #### [facility] CLIA [id number] [address] [place] [address] [place] Differential cell count method Nom (Bld) Auto Normal [facility] Comment on above: Order Comment: Speci men Type: BLOOD SPECIMEN Ordering Facility: [facility] Address: [address] [place] [address] Performed By: #### 5 7021-8 #### [facility] CLIA [id number] [address] [place] Eosinophils (Bld) [#/Vol] 0.39 10*3/uL Normal <0.46 [facility] Comment on above: Order Comment: Speci men Type: BLOOD SPECIMEN Ordering Facility: [facility] Address: [facility] [place] [address] Performed By: #### 5 7021-8 #### [facility] CLIA [id number] [address] Eosinophils/100 WBC (Bld) 3.2 % Normal [facility] Comment on above: Order Comment: Speci men Type: BLOOD SPECIMEN Ordering Facility: [facility] Address: [address] [place] [address] Performed By: #### 5 7021-8 #### [facility] CLIA [id number] [address] Erythrocyte distribution width (RBC) [Ratio] 13.3 % Normal 11.5-15.0 [facility] Comment on above: Order Comment: Speci men Type: BLOOD SPECIMEN Ordering Facility: [facility] Address: [address] [place] [address] Performed By: #### 5 7021-8 #### [facility] CLIA [id number] [address] [place] Hematocrit (Bld) [Volume fraction] 40.6 % Normal 39.0-51.0 [facility] Comment on above: Order Comment: Speci men Type: BLOOD SPECIMEN Ordering Facility: [facility] Address: [address] [place] [address] Performed By: #### 5 7021-8 #### [facility] CLIA [id number] [address] [place] [address] [place] Hemoglobin (Bld) [Mass/Vol] 13.4 g/dL Normal 13.0-17. 0 [facility] Comment on above: Order Comment: Speci men Type: BLOOD SPECIMEN Ordering Facility: [facility] Address: [facility] [place] [address] Performed By: #### 5 7021-8 #### [facility] CLIA [id number] [address] [place] Immature granulocytes (Bld) [#/Vol] 0.05 10*3/uL Normal <0.10 [facility] Comment on above: Order Comment: Speci men Type: BLOOD SPECIMEN Ordering Facility: [facility] Address: [address] [place] [address] Performed By: #### 5 7021-8 #### [facility] CLIA [id number] [address] [place] Immature granulocytes/100 WBC (Bld) 0.4 % Normal [facility] Comment on above: Order Comment: Speci men Type: BLOOD SPECIMEN Ordering Facility: [facility] Address: [address] [place] [address] Performed By: #### 5 7021-8 #### [facility] CLIA [id number] [address] [place] Lymphocytes (Bld) [#/Vol] 2.34 10*3/uL Normal 1.00-4.0 0 [facility] Comment on above: Order Comment: Speci men Type: BLOOD SPECIMEN Ordering Facility: [facility] Address: [address] [place] [address] Performed By: #### 5 7021-8 #### [facility] CLIA [id number] [address] [place] Lymphocytes/100 WBC (Bld) 19.1 % Normal [facility] Comment on above: Order Comment: Speci men Type: BLOOD SPECIMEN Ordering Facility: [facility] Address: [address] [place] [address] Performed By: #### 5 7021-8 #### [facility] CLIA [id number] [address] MCH (RBC) [Entitic mass] 28.4 pg Normal 26.0-34.0 [facility] Comment on above: Order Comment: Speci men Type: BLOOD SPECIMEN Ordering Facility: [facility] Address: [address] [place] [address] Performed By: #### 5 7021-8 #### [facility] CLIA [id number] [address] OF [facility] MCHC (RBC) [Mass/Vol] 33.0 g/dL Normal 30.5-36.0 [facility] Comment on above: Order Comment: Speci men Type: BLOOD SPECIMEN Ordering Facility: [facility] Address: [address] [place] [address] Performed By: #### 5 7021-8 #### [facility] CLIA [id number] [address] MCV (RBC) [Entitic vol] 86.0 fL Normal 80.0-100.0 [facility] Comment on above: Order Comment: Speci men Type: BLOOD SPECIMEN Ordering Facility: [facility] Address: [address] [place] [address] Performed By: #### 5 7021-8 #### [facility] CLIA [id number] [address] OF [facility] Monocytes (Bld) [#/Vol] 1.38 10*3/uL High <0.87 [facility] Comment on above: Order Comment: Speci men Type: BLOOD SPECIMEN Ordering Facility: [facility] Address: [address] [place] [address] Performed By: #### 5 7021-8 #### [facility] CLIA [id number] [address] Monocytes/100 WBC (Bld) 11.3 % Normal [facility] Comment on above: Order Comment: Speci men Type: BLOOD SPECIMEN Ordering Facility: [facility] Address: [address] [place] [address] Performed By: #### 5 7021-8 #### [facility] CLIA [id number] [address] [place] Neutrophils (Bld) [#/Vol] 8.02 10*3/uL High 1.45-7.5 0 [facility] Comment on above: Order Comment: Speci men Type: BLOOD SPECIMEN Ordering Facility: [facility] Address: [address] [place] [address] Performed By: #### 5 7021-8 #### [facility] CLIA [id number] [address] [place] Neutrophils/100 WBC (Bld) 65.5 % Normal [facility] Comment on above: Order Comment: Speci men Type: BLOOD SPECIMEN Ordering Facility: [facility] Address: [address] [place] [address] Performed By: #### 5 7021-8 #### [facility] CLIA [id number] [address] [place] Nucleated RBC (Bld) [#/Vol] 10*3/uL Normal <0.01 [facility] Comment on above: Order Comment: Speci men Type: BLOOD SPECIMEN Ordering Facility: [facility] Address: [address] [place] [address] Performed By: #### 5 7021-8 #### [facility] CLIA [id number] [address] [place] Nucleated RBC/100 WBC (Bld) [Ratio] 0.0 /100 WBC Normal [facility] Comment on above: Order Comment: Speci men Type: BLOOD SPECIMEN Ordering Facility: [facility] Address: [address] [place] [address] Performed By: #### 5 7021-8 #### [facility] CLIA [id number] [address] [place] Platelet mean volume (Bld) [Entitic vol] 10.7 fL Normal 9.0-12.7 [facility] Comment on above: Order Comment: Speci men Type: BLOOD SPECIMEN Ordering Facility: [facility] Address: [address] [place] [address] Performed By: #### 5 7021-8 #### [facility] CLIA [id number] [address] Platelets (Bld) [#/Vol] 268 10*3/uL Normal 150-400 [facility] Comment on above: Order Comment: Speci men Type: BLOOD SPECIMEN Ordering Facility: [facility] Address: [address] [place] [address] Performed By: #### 5 7021-8 #### [facility] CLIA [id number] [address] RBC (Bld) [#/Vol] 4.72 10*6/uL Normal 4.20-6.00 [facility] Comment on above: Order Comment: Speci men Type: BLOOD SPECIMEN Ordering Facility: [facility] Address: [address] [place] [address] Performed By: #### 5 7021-8 #### [facility] CLIA [id number] [address] WBC (Bld) [#/Vol] 12.24 10*3/uL High 3.70-11.00 [facility] Comment on above: Order Comment: Speci men Type: BLOOD SPECIMEN Ordering Facility: [facility] Address: [address] [place] [address] Performed By: #### 5 7021-8 #### [facility] CLIA [id number] [address] ED PROV NOTEon 04-12-2024 ED PROV NOTE HNO ID: [id number] Author: MELVIN BINGHAM MD Service: Emergency Medicine Author Type: Resident Type: ED Provider Notes Filed: 05/18/2024 00:10 Note Text: Attestation signed by Melvin Bingham MD at [...] revisions and/or additions: Signature: Melvin Bingham MD ED Provider Note Patient Name: Faisal Alarcon : 1945 SERVICE DATE: 04/12/24 History Patient presents with: Hematuria: Pt arrives with family stating patient has been having hematuria since Sunday- was seen [facility] and urologist this week. Pt states [...] He went to the emergency department in [place] and was told to follow-up with urology outpatient. Patient had urology appointment in [place] on of this past week who planned for cystoscopy on April 29. They were told that if he had any new symptoms to go to the emergency department. Patient went back to the emergency department in [place] where they performed lab work that was negative for anemia. The patient is now reporting continued dizziness and headache. Patient inquiring if they can see urology for cystoscopy on a more urgent basis here at [facility]. Patient is well appearing in no [...] Diagnostic Testi (more content not included)... Normal [facility] Urinalysis complete panel (U )on 04-12-2024 Bacteria LM.HPF (Urine sed) [#/Area] Few Abnormal None Seen [facility] Comment on above: Order Comment: Speci men Type: URINE SPECIMEN Ordering Facility: [facility] Address: [address] [place] [address] Performed By: #### 2 4356-8 #### [facility] CLIA [id number] [address] Bilirubin Ql (U) 1+ Abnormal Negative [facility] Comment on above: Order Comment: Speci men Type: URINE SPECIMEN Ordering Facility: [facility] Address: [address] [place] [address] Result Comment: Sugg est correlation with clinical findings and serum bilirubin if clinically indicated. Performed By: #### 2 4356-8 #### [facility] CLIA [id number] [address] Clarity (Unsp spec) Cloudy Abnormal Clear [facility] Comment on above: Order Comment: Speci men Type: URINE SPECIMEN Ordering Facility: [facility] Address: [address] [place] [address] Performed By: #### 2 4356-8 #### [facility] CLIA [id number] [address] Color (U) Yellow Normal Yellow [facility] Comment on above: Order Comment: Speci men Type: URINE SPECIMEN Ordering Facility: [facility] Address: [address] [place] [address] Performed By: #### 2 4356-8 #### [facility] CLIA [id number] [address] Glucose Test strip (U) [Mass/Vol] Trace Abnormal Negative [facility] Comment on above: Order Comment: Speci men Type: URINE SPECIMEN Ordering Facility: [facility] Address: [address] [place] [address] Performed By: #### 2 4356-8 #### [facility] CLIA [id number] [address] Hemoglobin Ql (U) 3+ Abnormal Negative [facility] Comment on above: Order Comment: Speci men Type: URINE SPECIMEN Ordering Facility: [facility] Address: [address] [place] [address] Performed By: #### 2 4356-8 #### [facility] CLIA [id number] [address] Ketones Ql (U) Trace Abnormal Negative [facility] Comment on above: Order Comment: Speci men Type: URINE SPECIMEN Ordering Facility: [facility] Address: [address] [place] [address] Performed By: #### 2 4356-8 #### [facility] CLIA [id number] [address] Leukocyte esterase Test strip Ql (U) Negative Normal Negative [facility] Comment on above: Order Comment: Speci men Type: URINE SPECIMEN Ordering Facility: [facility] Address: [address] [place] [address] Performed By: #### 2 4356-8 #### [facility] CLIA [id number] [address] Nitrite Ql (U) Negative Normal Negative [facility] Comment on above: Order Comment: Speci men Type: URINE SPECIMEN Ordering Facility: [facility] Address: [address] [place] [address] Performed By: #### 2 4356-8 #### [facility] CLIA [id number] [address] pH (U) 6.0 [pH] Normal 5.0-8.0 [facility] Comment on above: Order Comment: Speci men Type: URINE SPECIMEN Ordering Facility: [facility] Address: [address] [place] [address] Performed By: #### 2 4356-8 #### [facility] CLIA [id number] [address] Protein (U) [Mass/Vol] 1+ Abnormal Negative [facility] Comment on above: Order Comment: Speci men Type: URINE SPECIMEN Ordering Facility: [facility] Address: [address] [place] [address] Performed By: #### 2 4356-8 #### [facility] CLIA [id number] [address] RBC LM.HPF (Urine sed) [#/Area] /[HPF] Abnormal 0-3 /HPF [facility] Comment on above: Order Comment: Speci men Type: URINE SPECIMEN Ordering Facility: [facility] Address: [address] [place] [address] Performed By: #### 2 4356-8 #### [facility] CLIA [id number] [address] Specific gravity (U) [Rel density] >=1.030 High 1.005-1.030 [facility] Comment on above: Order Comment: Speci men Type: URINE SPECIMEN Ordering Facility: [facility] Address: [address] [place] [address] Performed By: #### 2 4356-8 #### [facility] CLIA [id number] [address] Urobilinogen Ql (U) 0.2 EU/dL Normal 0.2 EU/d L, 1.0 EU/dL [facility] Comment on above: Order Comment: Speci men Type: URINE SPECIMEN Ordering Facility: [facility] Address: [address] [place] [address] Performed By: #### 2 4356-8 #### [facility] CLIA [id number] [address] [place] [address] [place] WBC LM.HPF (Urine sed) [#/Area] 6-10 /HPF Abnormal 0-5 /HPF [facility] Comment on above: Order Comment: Speci men Type: URINE SPECIMEN Ordering Facility: [facility] Address: [facility] [place] [address] Performed By: #### 2 4356-8 #### [facility] CLIA [id number] [address] [place] [id number] [place] CNOVon 04-09-2024 CNOV Office Visit (UCWSTR ) FAISAL ALARCON ([id number]) 1945 M Date Time Provider Department 04/09/24 2:30 PM ANDREW GUALLPA [facility] During your visit today, we recorded the following information about you: Temperature Pulse Respiration Blood pressure 98.8 degrees 94/minute 20/minute 128/84 Weight 140.6 kg Andrew Guallpa APRN.RN ORTHOPAEDIC 04/09/2024 2:44 PM Signed Subjective HPI Nontoxic-appearing [...] times a day before meals. Getting through [facility] dilTIAZem CD (CARDIZEM CD, CARTIA XT) 120 mg 24 hr capsule Take 1 capsule by mouth once daily. losartan-hydroCHLOROth iazide (HYZAAR) 100-12.5 mg per tablet Take 1 [...] mouth every 12 hours. Prescribed by outside envelope folder colestipol (COLESTID) 1 gram tablet Take 1 [...] (98.8 ?F (more content not included)... Normal [facility] XR Chest PA and Lateralon IMPRESSION: No developing abnormality or acute process Communications Editor: BERNIE Transcribe Date/Time: Feb 05 2024 8:15A Dictated by : TRES CARSON MD This examination was interpreted and the report reviewed and electronically signed by: TRES CARSON MD on Feb 05 2024 8:16AM [facility] DIVISION OF RADIOLOGY * * *Final Report* [...] change and osteophytosis. DIVISION OF RADIOLOGY Provider, [facility] - 02/05/2024 * * *Final Report* * [...] IMPRESSION: No developing abnormality or acute process Communications Editor: BERNIE Transcribe Date/Time: Feb 05 2024 8:15A Dictated by : TRES CARSON MD This examination was interpreted and the report reviewed and electronically signed by: TRES CARSON MD on Feb 05 2024 8:16AM [facility] XR Chest PA and LateralOrder ed By: Cc Provider on 02-05-2024 [facility] CBC W Auto Differential pane l (Bld)on 02-04-2024 Basophils (Bld) [#/Vol] 0.05 10*3/uL [facility] Basophils/100 WBC (Bld) 0.4 % C [facility] Differential cell count method Nom (Bld) Auto [facility] Eosinophils (Bld) [#/Vol] 0.34 10*3/uL [facility] Eosinophils/100 WBC (Bld) 3.0 % [facility] Erythrocyte distribution width (RBC) [Ratio] 12.9 % 11.5 - 15.0 % [facility] Hematocrit (Bld) [Volume fraction] 41.9 % 39.0 - 51.0 % [facility] Hemoglobin (Bld) [Mass/Vol] 13.5 g/dL 13.0 - 17.0 g/dL [facility] Immature granulocytes (Bld) [#/Vol] 0.05 10*3/uL [facility] Immature granulocytes/100 WBC (Bld) 0.4 % [facility] Interpretation and review of laboratory results Abnormal [facility] Lymphocytes (Bld) [#/Vol] 1.59 10*3/uL [facility] Lymphocytes/100 WBC (Bld) 14.2 % [facility] MCH (RBC) [Entitic mass] 28.4 pg 26. 0 - 34.0 pg [facility] MCHC (RBC) [Mass/Vol] 32.2 g/dL 30.5 - 36.0 g/dL [facility] MCV (RBC) [Entitic vol] 88.2 fL 80.0 - 100.0 fL [facility] Monocytes (Bld) [#/Vol] 1.24 10*3/uL High [facility] Monocytes/100 WBC (Bld) 11.1 % C [facility] Neutrophils (Bld) [#/Vol] 7.91 10*3/uL High [facility] Neutrophils/100 WBC (Bld) 70.9 % [facility] Nucleated RBC (Bld) [#/Vol] [facility] Nucleated RBC/100 WBC (Bld) [Ratio] 0.0 % /100 WBC [facility] Platelet mean volume (Bld) [Entitic vol] 11.4 fL 9.0 - 12.7 fL [facility] Platelets (Bld) [#/Vol] 256 10*3/uL [facility] RBC (Bld) [#/Vol] 4.75 10*6/uL 4.20 - 6.0 0 m/uL [facility] WBC (Bld) [#/Vol] 11.18 10*3/uL [facility] XR Chest PA and Lateralon Radiology Study observation (narrative) [facility] Absolute lymphocyte countOrd ered By: Tre Johnson on 09-22-2023 Lymphocytes Auto (Unsp spec) [#/Vol] 1.76 10*3/uL 0.83-4.51 [facility] Basophil percentageOrdered B y: Tre Johnson on 09-22-2023 Basophils/100 WBC (Bld) 0.4 % 0-1 [facility] Chloride [Moles/Vol] 106 mmol/L 98-107 [facility] Eosinophils/100 WBC (Bld) 3.4 % 0-5 [facility] Glucose [Mass/Vol] 168 mg/dL 74-106 [facility] Comment on above: Fasting Glucose resu lt greater than or equal to 126 mg/dL suggests DIABETES MELLITUS per A.D.A. criteria. Neutrophils (Bld) [#/Vol] 8.5 10*3/uL 2.0-7.7 [facility] Neutrophils/100 WBC (Bld) 71.2 % 47-70 [facility] Potassium [Moles/Vol] 4.0 mmol/L 3.5-5.1 [facility] Sodium [Moles/Vol] 137 mmol/L 136-145 [facility] WBC (Bld) [#/Vol] 12.0 10*3/uL 4.4-11.0 [facility] Blood erythrocytes count (nu mber/volume)Ordered By: Tre Johnson on 09-22-2023 RBC (Bld) [#/Vol] 5.22 10*6/uL 4.6-6.2 [facility] Blood hemoglobin measurement (mass/volume)Ordered By: Tre Johnson on 09-22-2023 Hemoglobin (Bld) [Mass/Vol] 14.1 g/dL 13.0-16. 5 [facility] Blood lymphocytes/100 leukoc ytesOrdered By: Tre Johnson on 09-22-2023 Lymphocytes/100 WBC (Bld) 14.7 % 19-41 [facility] Blood monocytes/100 leukocyt esOrdered By: Tre Johnson on 09-22-2023 Monocytes/100 WBC (Bld) 9.9 % 0-10 [facility] Blood platelet mean volumeOr dered By: Tre Johnson on 09-22-2023 Platelet mean volume (Bld) [Entitic vol] 10.9 fL 6.2-12.0 [facility] Determination of erythrocyte mean corpuscular volume (MCV)Ordered By: Tre Johnson on 09-22-2023 MCV (RBC) [Entitic vol] 83.5 fL 80-94 [facility] Hematocrit Auto (Bld) [Volum e fraction]Ordered By: Tre Johnson on 09-22-2023 Hematocrit (Bld) [Volume fraction] 43.6 % 40-54 [facility] - Chemistry and C hemistry - challengeOrdered By: Tre Johnson on 09-22-2023 CO2 [Moles/Vol] 25.0 mmol/L 21.0-32.0 [facility] Urea nitrogen/Creatinine [Mass ratio] 16.8 mg/mg 10-20 [facility] - Hematology and Cell countsOrdered By: Tre Johnson on 09-22-2023 Erythrocyte distribution width (RBC) [Entitic vol] 43.0 fL 35.1-43.9 [facility] Erythrocyte distribution width (RBC) [Ratio] 14.2 % 11.6-14.6 [facility] Immature granulocytes/100 WBC (Bld) 0.400 % 0.0-0.9 [facility] Comment on above: IG% - Immature Granu locytes (promyelocytes, myelocytes and metamyelocytes) > 1% indicates that a LEFT SHIFT is Present. MCH (RBC) [Entitic mass] 27.0 pg 27.0-32.0 [facility] Nucleated RBC/100 WBC (Bld) [Ratio] 0 % 0-5 [facility] MCHC Auto (RBC) [Mass/Vol]Or dered By: Tre Johnson on 09-22-2023 MCHC (RBC) [Mass/Vol] 32.3 g/dL 32-36 [facility] No Panel InformationOrdered By: Tre Johnson on 09-22-2023 Troponin I High Sensitivity 9 pg/mL 3.0-78.0 [facility] Comment on above: Please Note: New [place] t Units and Gender Specific Reference Ranges. For more information see Policy Stat Procedure Pierre High Sensitivity Troponin (TNIH) and attachments. Estimated Creatinine Clearance Calc 63.26 ml/min [facility] Estimated GFR (MDRD) Amer 86 mL/min >60 [facility] Comment on above: GFR Calc Estimated GFR (MDRD) Non-Af Amer 71 mL/min >60 [facility] Comment on above: Non- GFR Calc Platelets bldOrdered By: Tashi Johnson on 09-22-2023 Platelets (Bld) [#/Vol] 210 10*3/uL 150-450 [facility] Comment on above: NO PLATELET CLUMPS Serum or plasma calcium nahomy urement (mass/volume)Ordered By: Tre Johnson on 09-22-2023 Calcium [Mass/Vol] 9.4 mg/dL 8.5-10.1 [facility] Serum or plasma creatinine m easurement (mass/volume)Ordered By: Tre Johnson on 09-22-2023 Creatinine [Mass/Vol] 1.07 mg/dL 0.70-1.30 [facility] Comment on above: The validity of the calculated GFR & GFRAA in patients over 70 years has not been determined. Clinical correlation is essential. Serum or plasma urea nitroge n measurement (mass/volume)Ordered By: Tre Johnson on 09-22-2023 Urea nitrogen [Mass/Vol] 18 mg/dL 7-18 [facility] Thin prep Papanicolaou smear with manual screeningOrdered By: Tre Johnson on 09-22-2023 Thin prep Papanicolaou smear with manual screening 6 5-15 [facility] XR Chest PA and Lateralon IMPRESSION: Diffuse coarsening of the lung markings, with areas of linear atelectasis or fibrosis. Stable Cardiomegaly Communications Editor: BERNIE Transcribe Date/Time: Sep 11 2023 12:08P Dictated by : TRES CARSON MD This examination was interpreted and the report reviewed and electronically signed by: TRES CARSON MD on Sep 11 2023 12:10PM [facility] DIVISION OF RADIOLOGY * * *Final Report* [...] Multilevel degenerative change. DIVISION OF RADIOLOGY Provider, [facility] - 09/11/2023 * * *Final Report* * [...] of linear atelectasis or fibrosis. Stable Cardiomegaly Communications Editor: PSCB Transcribe Date/Time: Sep 11 2023 12:08P Dictated by : TRES CARSON MD This examination was interpreted and the report reviewed and electronically signed by: TRES CARSON MD on Sep 11 2023 12:10PM EST [facility] XR Chest PA and LateralOrder ed By: Ccf Provider on 09-11-2023 [facility] XR Chest PA and Lateralon Radiology Study observation (narrative) [facility] XR Pelvis and Hip - right AP and Lateral frogon 07-25-2023 IMPRESSION: Minimal right hip osteoarthritis without acute osseous abnormality. Communications Editor: BERNIE Transcribe Date/Time: Jul 25 2023 9:21A Dictated by : CARINA IGLESIAS DO This examination was interpreted and the report reviewed and electronically signed by: CARINA IGLESIAS DO on Jul 25 2023 9:22AM [facility] DIVISION OF RADIOLOGY * * *Final Report* [...] spine. Pelvic enthesopathy. DIVISION OF RADIOLOGY Provider, [facility] * * *Final Report* [...] right hip osteoarthritis without acute osseous abnormality. Communications Editor: BERNIE Transcribe Date/Time: Jul 25 2023 9:21A Dictated by : CARINA IGLESIAS DO This examination was interpreted and the report reviewed and electronically signed by: CARINA IGLESIAS DO on Jul 25 2023 9:22AM EST [facility] XR Pelvis and Hip - right AP and Lateral frogOrdered By: Ccf Provider on 07-25-2023 [facility] XR Pelvis and Hip - right AP and Lateral frogon 07-23-2023 Radiology Study observation (narrative) [facility] XR CHEST 2V FRONTAL/LATon [facility] XR Chest PA and Lateralon IMPRESSION: Question of some mild bilateral perihilar infiltrate. Communications Editor: BERNIE Transcribe Date/Time: Jun 09 2023 12:07P Dictated by : MAN ROSADO DO This examination was interpreted and the report reviewed and electronically signed by: MAN ROSADO DO on Jun 09 2023 12:08PM EST DIVISION OF RADIOLOGY * * *Final [...] soft tissues: Unremarkable. DIVISION OF RADIOLOGY Provider, [facility] 06/09/2023 * * *Final Report* * [...] Question of some mild bilateral perihilar infiltrate. Communications Editor: PSCB Transcribe Date/Time: Jun 09 2023 12:07P Dictated by : MAN ROSADO DO This examination was interpreted and the report reviewed and electronically signed by: MAN ROSADO DO on Jun 09 2023 12:08PM EST [facility] Radiology Study observation (narrative) [facility] XR Chest PA and LateralOrder ed By: Ccf Provider on 06-09-2023 [facility] Absolute lymphocyte countOrd ered By: Mani Esquivel on 03-31-2023 Lymphocytes Auto (Unsp spec) [#/Vol] 1.83 10*3/uL 0.83-4.51 [facility] Basophil percentageOrdered B y: aMni Esquivel on 03-31-2023 Basophils/100 WBC (Bld) 0.5 % 0-1 [facility] Bilirubin [Mass/Vol] 0.30 mg/dL 0.20-1.00 [facility] Comment on above: For patients on eltr ombopag therapy, use of Dimension Pierre TBIL is not recommended. Chloride [Moles/Vol] 103 mmol/L 98-107 [facility] Eosinophils/100 WBC (Bld) 3.4 % 0-5 [facility] Glucose [Mass/Vol] 81 mg/dL 74-106 [facility] Neutrophils (Bld) [#/Vol] 8.5 10*3/uL 2.0-7.7 [facility] Neutrophils/100 WBC (Bld) 68.4 % 47-70 [facility] Potassium [Moles/Vol] 4.6 mmol/L 3.5-5.1 [facility] Comment on above: Moderate Hemolysis, Result may be falsely increased. Protein [Mass/Vol] 7.2 g/dL 6.4-8.2 [facility] Sodium [Moles/Vol] 135 mmol/L 136-145 [facility] WBC (Bld) [#/Vol] 12.4 10*3/uL 4.4-11.0 [facility] Blood erythrocytes count (nu mber/volume)Ordered By: Mani Esquivel on 03-31-2023 RBC (Bld) [#/Vol] 4.74 10*6/uL 4.6-6.2 [facility] Blood hemoglobin measurement (mass/volume)Ordered By: Mani Esquivel on 03-31-2023 Hemoglobin (Bld) [Mass/Vol] 13.6 g/dL 13.0-16. 5 [facility] Blood lymphocytes/100 leukoc ytesOrdered By: Mani Esquivel on 03-31-2023 Lymphocytes/100 WBC (Bld) 14.8 % 19-41 [facility] Blood manual differential co mment interpretation (narrative result)Ordered By: Mani Esquivel on 03-31-2023 Manual differential comment Rey (Bld) [Interp] SCANNED [facility] Comment on above: MONOCYTOSIS Blood monocytes/100 leukocyt esOrdered By: Mani Esquivel on 03-31-2023 Monocytes/100 WBC (Bld) 12.5 % 0-10 [facility] Blood platelet mean volumeOr dered By: Mani Esquivel on 03-31-2023 Platelet mean volume (Bld) [Entitic vol] 11.0 fL 6.2-12.0 [facility] Determination of erythrocyte mean corpuscular volume (MCV)Ordered By: Mani Esquivel on 03-31-2023 MCV (RBC) [Entitic vol] 88.2 fL 80-94 [facility] Direct bilirubinOrdered By: Mani Esquivel on 03-31-2023 Bilirubin.direct [Mass/Vol] 0.07 mg/dL 0.00-0.3 0 [facility] Hematocrit Auto (Bld) [Volum e fraction]Ordered By: Mani Esquivel on 03-31-2023 Hematocrit (Bld) [Volume fraction] 41.8 % 40-54 [facility] - Chemistry and C hemistry - challengeOrdered By: Mani Esquivel on 03-31-2023 ALP [Catalytic activity/Vol] 72 U/L 45-117 [facility] ALT [Catalytic activity/Vol] 32 U/L 16-61 [facility] CO2 [Moles/Vol] 25.0 mmol/L 21.0-32.0 [facility] Globulin (S) [Mass/Vol] 3.8 g/dL 2.2-4.2 [facility] Lipase [Catalytic activity/Vol] 433 U/L 13-75 [facility] Comment on above: Please note:LIPASE r evised reference range effective 22. New Lipase methodology. Expected to produce lower values than the previous assay method. NEW Reference Range: 13 - 75 U/L Urea nitrogen/Creatinine [Mass ratio] 14.8 mg/mg 10-20 [facility] - Hematology and Cell countsOrdered By: Mani Esquivel on 03-31-2023 Erythrocyte distribution width (RBC) [Entitic vol] 42.4 fL 35.1-43.9 [facility] Erythrocyte distribution width (RBC) [Ratio] 13.1 % 11.6-14.6 [facility] Immature granulocytes/100 WBC (Bld) 0.400 % 0.0-0.9 [facility] Comment on above: IG% - Immature Granu locytes (promyelocytes, myelocytes and metamyelocytes) > 1% indicates that a LEFT SHIFT is Present. MCH (RBC) [Entitic mass] 28.7 pg 27.0-32.0 [facility] Nucleated RBC/100 WBC (Bld) [Ratio] 0 % 0-5 [facility] MCHC Auto (RBC) [Mass/Vol]Or dered By: Mani Esquivel on 03-31-2023 MCHC (RBC) [Mass/Vol] 32.5 g/dL 32-36 [facility] No Panel InformationOrdered By: Mani Esquivel on 03-31-2023 Estimated GFR (MDRD) Amer 51 mL/min >60 [facility] Comment on above: GFR Calc Estimated GFR (MDRD) Non-Af Amer 42 mL/min >60 [facility] Comment on above: Non- GFR Calc Platelets bldOrdered By: Rashel Esquivel on 03-31-2023 Platelets (Bld) [#/Vol] 249 10*3/uL 150-450 [facility] Review by pathologistOrdered By: Mani Esquivel on 03-31-2023 Pathologist review Rey (Unsp spec) [Interp] Tamara joana [facility] Pathologist review Rey (Unsp spec) [Interp] Reviewed [facility] Comment on above: Previous reported re sult: Tamara joana Edited by: DEEPTHI on 04/03/23:1218Leukocytosis.Clinical correlation necessary.Callum Arteaga M.D. 04/03/23 AMENDED REPORT 04/03/23 1218 PATH REV previously reported as: Tamara bernard Serum or plasma albumin nahomy urement (mass/volume)Ordered By: Mani Esquivel on 03-31-2023 Albumin [Mass/Vol] 3.4 g/dL 3.2-5.0 [facility] Serum or plasma calcium nahomy urement (mass/volume)Ordered By: Mani Esquivel on 03-31-2023 Calcium [Mass/Vol] 8.7 mg/dL 8.5-10.1 [facility] Serum or plasma creatinine m easurement (mass/volume)Ordered By: Mani Esquivel on 03-31-2023 Creatinine [Mass/Vol] 1.69 mg/dL 0.70-1.30 [facility] Comment on above: The validity of the calculated GFR & GFRAA in patients over 70 years has not been determined. Clinical correlation is essential. Serum or plasma urea nitroge n measurement (mass/volume)Ordered By: Mani Esquivel on 03-31-2023 Urea nitrogen [Mass/Vol] 25 mg/dL 04-03 [facility] Thin prep Papanicolaou smear with manual screeningOrdered By: Mani Esquivel on 03-31-2023 Thin prep Papanicolaou smear with manual screening 27 U/L 15- [facility] Comment on above: Moderate Hemolysis, Result may be falsely increased. Thin prep Papanicolaou smear with manual screening 7 - [facility] CBC W Auto Differential pane l (Bld)on 03-02-2023 Basophils (Bld) [#/Vol] 0.06 10*3/uL <0.11 k/uL [facility] Basophils/100 WBC (Bld) 0.5 % C [facility] Differential cell count method Nom (Bld) Auto [facility] Eosinophils (Bld) [#/Vol] 0.44 10*3/uL <0.46 k/ uL [facility] Eosinophils/100 WBC (Bld) 4.0 % [facility] Erythrocyte distribution width (RBC) [Ratio] 13.3 % 11.5 - 15.0 % [facility] Hematocrit (Bld) [Volume fraction] 44.9 % 39.0 - 51.0 % [facility] Hemoglobin (Bld) [Mass/Vol] 14.4 g/dL 13.0 - 17.0 g/dL [facility] Immature granulocytes (Bld) [#/Vol] 0.04 10*3/uL <0.10 k/uL [facility] Immature granulocytes/100 WBC (Bld) 0.4 % [facility] Lymphocytes (Bld) [#/Vol] 2.03 10*3/uL 1. 00 - 4.00 k/uL [facility] Lymphocytes/100 WBC (Bld) 18.5 % [facility] MCH (RBC) [Entitic mass] 28.7 pg 26. 0 - 34.0 pg [facility] MCHC (RBC) [Mass/Vol] 32.1 g/dL 30.5 - 36.0 g/dL [facility] MCV (RBC) [Entitic vol] 89.4 fL 80.0 - 100.0 fL [facility] Monocytes (Bld) [#/Vol] 1.22 10*3/uL High <0.87 k/uL [facility] Monocytes/100 WBC (Bld) 11.1 % C [facility] Neutrophils (Bld) [#/Vol] 7.19 10*3/uL 1. 45 - 7.50 k/uL [facility] Neutrophils/100 WBC (Bld) 65.5 % [facility] Nucleated RBC (Bld) [#/Vol] <0.01 k/ uL [facility] Nucleated RBC/100 WBC (Bld) [Ratio] 0.0 /100 WBC [facility] Platelet mean volume (Bld) [Entitic vol] 11.5 fL 9.0 - 12.7 fL [facility] Platelets (Bld) [#/Vol] 259 10*3/uL 150 - 400 k/uL [facility] RBC (Bld) [#/Vol] 5.02 10*6/uL 4.20 - 6.0 0 m/uL [facility] WBC (Bld) [#/Vol] 10.98 10*3/uL 3.70 - 11.00 k/uL [facility] Absolute lymphocyte countOrd ered By: Dr. Taylor on 03-01-2023 Lymphocytes Auto (Unsp spec) [#/Vol] 2.50 10*3/uL 0.83-4.51 [facility] Basophil percentageOrdered B y: Dr. Taylor on 03-01-2023 Basophils/100 WBC (Bld) 0.5 % 0-1 [facility] Bilirubin [Mass/Vol] 0.30 mg/dL 0.20-1.00 [facility] Comment on above: For patients on eltr ombopag therapy, use of Dimension Pierre TBIL is not recommended. Chloride [Moles/Vol] 101 mmol/L 98-107 [facility] Eosinophils/100 WBC (Bld) 3.2 % 0-5 [facility] Glucose [Mass/Vol] 132 mg/dL 74-106 [facility] Comment on above: Fasting Glucose resu lt greater than or equal to 126 mg/dL suggests DIABETES MELLITUS per A.D.A. criteria. Neutrophils (Bld) [#/Vol] 7.2 10*3/uL 2.0-7.7 [facility] Neutrophils/100 WBC (Bld) 62.9 % 47-70 [facility] Potassium [Moles/Vol] 3.8 mmol/L 3.5-5.1 [facility] Protein [Mass/Vol] 7.1 g/dL 6.4-8.2 [facility] Sodium [Moles/Vol] 133 mmol/L 136-145 [facility] WBC (Bld) [#/Vol] 11.4 10*3/uL 4.4-11.0 [facility] Basophil percentage 0-5 SEEN /hpf 0-5 [facility] Bilirubin Test strip Ql (U)O rdered By: Dr. Taylor on 03-01-2023 Bilirubin Ql (U) Negative Negative [facility] Blood erythrocytes count (nu mber/volume)Ordered By: Dr. Taylor on 03-01-2023 RBC (Bld) [#/Vol] 4.89 10*6/uL 4.6-6.2 [facility] Blood hemoglobin measurement (mass/volume)Ordered By: Dr. Taylor on 03-01-2023 Hemoglobin (Bld) [Mass/Vol] 14.0 g/dL 13.0-16. 5 [facility] Blood lymphocytes/100 leukoc ytesOrdered By: Dr. Taylor on 03-01-2023 Lymphocytes/100 WBC (Bld) 21.9 % 19-41 [facility] Blood monocytes/100 leukocyt esOrdered By: Dr. Taylor on 03-01-2023 Monocytes/100 WBC (Bld) 11.2 % 0-10 [facility] Blood platelet mean volumeOr dered By: Dr. Taylor on 03-01-2023 Platelet mean volume (Bld) [Entitic vol] 10.9 fL 6.2-12.0 [facility] Determination of erythrocyte mean corpuscular volume (MCV)Ordered By: Dr. Taylor on 03-01-2023 MCV (RBC) [Entitic vol] 86.1 fL 80-94 [facility] Hematocrit Auto (Bld) [Volum e fraction]Ordered By: Dr. Taylor on 03-01-2023 Hematocrit (Bld) [Volume fraction] 42.1 % 40-54 [facility] Hyaline casts LM.LPF (Urine sed) [#/Area]Ordered By: Dr. Taylor on 03-01-2023 Hyaline casts (Urine sed) [#/Area] 0 /[LPF] 0-5 [facility] Ketones Test strip Ql (U)Ord ered By: Dr. Taylor on 03-01-2023 Ketones Ql (U) 5 mg/dl Negative [facility] Laboratory - Chemistry and C hemistry - challengeOrdered By: Dr. Taylor on 03-01-2023 ALP [Catalytic activity/Vol] 73 U/L 45-117 [facility] ALT [Catalytic activity/Vol] 33 U/L 16-61 [facility] CO2 [Moles/Vol] 24.0 mmol/L 21.0-32.0 [facility] Globulin (S) [Mass/Vol] 3.6 g/dL 2.2-4.2 [facility] Lipase [Catalytic activity/Vol] 82 U/L 13-75 [facility] Comment on above: Please note:LIPASE r evised reference range effective 22. New Lipase methodology. Expected to produce lower values than the previous assay method. NEW Reference Range: 13 - 75 U/L Urea nitrogen/Creatinine [Mass ratio] 24.8 mg/mg 10-20 [facility] Laboratory - Hematology and Cell countsOrdered By: Dr. Taylor on 03-01-2023 Erythrocyte distribution width (RBC) [Entitic vol] 41.3 fL 35.1-43.9 [facility] Erythrocyte distribution width (RBC) [Ratio] 13.2 % 11.6-14.6 [facility] Immature granulocytes/100 WBC (Bld) 0.300 % 0.0-0.9 [facility] Comment on above: IG% - Immature Granu locytes (promyelocytes, myelocytes and metamyelocytes) > 1% indicates that a LEFT SHIFT is Present. MCH (RBC) [Entitic mass] 28.6 pg 27.0-32.0 [facility] Nucleated RBC/100 WBC (Bld) [Ratio] 0 % 0-5 [facility] MCHC Auto (RBC) [Mass/Vol]Or dered By: Dr. Taylor on 03-01-2023 MCHC (RBC) [Mass/Vol] 33.3 g/dL 32-36 [facility] Mucus LM Ql (Urine sed)Order ed By: Dr. Taylor on 03-01-2023 Mucus Ql (Urine sed) 0 SEEN /hpf [facility] Nitrite Test strip Ql (U)Ord ered By: Dr. Taylor on 03-01-2023 Nitrite Ql (U) Negative Negative [facility] No Panel InformationOrdered By: Dr. Taylor on 03-01-2023 Estimated Creatinine Clearance Calc 48.80 ml/min [facility] Estimated GFR (MDRD) Amer 62 mL/min >60 [facility] Comment on above: GFR Calc Estimated GFR (MDRD) Non-Af Amer 52 mL/min >60 [facility] Comment on above: Non- GFR Calc Troponin I High Sensitivity 7 pg/mL 3.0-78.0 [facility] Comment on above: Please Note: New Carmen t Units and Gender Specific Reference Ranges. For more information see Policy Stat Procedure Pierre High Sensitivity Troponin (TNIH) and attachments. Platelets bldOrdered By: Dr. Taylor on 03-01-2023 Platelets (Bld) [#/Vol] 266 10*3/uL 150-450 [facility] Protein Test strip Ql (U)Ord ered By: Dr. Taylor on 03-01-2023 Protein Ql (U) 15 mg/dl Negative [facility] Serum or plasma albumin nahomy urement (mass/volume)Ordered By: Dr. Taylor on 03-01-2023 Albumin [Mass/Vol] 3.5 g/dL 3.2-5.0 [facility] Serum or plasma albumin/glob ulin mass ratioOrdered By: Dr. Taylor on 03-01-2023 Albumin/Globulin [Mass ratio] 1.0 {ratio} 0.9-2.4 [facility] Serum or plasma calcium nahomy urement (mass/volume)Ordered By: Dr. Taylor on 03-01-2023 Calcium [Mass/Vol] 9.1 mg/dL 8.5-10.1 [facility] Serum or plasma creatinine m easurement (mass/volume)Ordered By: Dr. Taylor on 03-01-2023 Creatinine [Mass/Vol] 1.41 mg/dL 0.70-1.30 [facility] Comment on above: The validity of the calculated GFR & GFRAA in patients over 70 years has not been determined. Clinical correlation is essential. Serum or plasma urea nitroge n measurement (mass/volume)Ordered By: Dr. Taylor on 03-01-2023 Urea nitrogen [Mass/Vol] 35 mg/dL 7-18 [facility] Squamous epithelial cells de tection in urine sediment by light microscopyOrdered By: Dr. Taylor on 03-01-2023 Epithelial cells.squamous LM Ql (Urine sed) 0-5 SEEN /hpf 0-5 [facility] Thin prep Papanicolaou smear with manual screeningOrdered By: Dr. Taylor on 03-01-2023 Thin prep Papanicolaou smear with manual screening 16 U/L 15-37 [facility] Thin prep Papanicolaou smear with manual screening 8 5-15 [facility] Urine blood detectionOrdered By: Dr. Taylor on 03-01-2023 RBC Ql (U) 50 /ul Negative [facility] RBC Ql (U) 0-5 SEEN /hpf 0-5 [facility] Urine clarityOrdered By: Dr. Taylor on 03-01-2023 Clarity (U) Clear Clear [facility] Urine color determinationOrd ered By: Dr. Taylor on 03-01-2023 Color (U) Yellow Yellow [facility] Urine glucose detectionOrder ed By: Dr. Taylor on 03-01-2023 Glucose Ql (U) 250 mg/dl Normal [facility] Urine leukocyte esterase det ection by dipstickOrdered By: Dr. Taylor on 03-01-2023 Leukocyte esterase Test strip Ql (U) Negative Negative [facility] Urine pHOrdered By: Dr. Katlyn burns on 03-01-2023 pH (U) 5.0 [pH] 5.0 - 8.0 [facility] Urine sediment bacteria coun t by microscopy (number/high power field)Ordered By: Dr. Taylor on 03-01-2023 Bacteria LM.HPF (Urine sed) [#/Area] 0 /[HPF] None Seen [facility] Urine specific gravity measu rementOrdered By: Dr. Taylor on 03-01-2023 Specific gravity (U) [Rel density] 1.025 1.002-1.030 [facility] Urobilinogen Auto test strip Ql (U)Ordered By: Dr. Taylor on 03-01-2023 Urobilinogen Ql (U) Normal mg/dl Normal [facility] Glucose Glucometer (BldC) [M ass/Vol]Ordered By: Mani Esquivel on 02-25-2023 Glucose [Mass/Vol] 132 mg/dL 74-106 [facility] Comment on above: MANAGEMENT OF PATIEN T CARE PER NURSING PROTOCOL Absolute lymphocyte countOrd ered By: Mani Esquivel on 02-24-2023 Lymphocytes Auto (Unsp spec) [#/Vol] 1.89 10*3/uL 0.83-4.51 [facility] Basophil percentageOrdered B y: Mani Esquivel on 02-24-2023 Basophils/100 WBC (Bld) 0.4 % 0-1 [facility] Bilirubin [Mass/Vol] 0.20 mg/dL 0.20-1.00 [facility] Comment on above: For patients on eltr ombopag therapy, use of Dimension Pierre TBIL is not recommended. Chloride [Moles/Vol] 106 mmol/L 98-107 [facility] Eosinophils/100 WBC (Bld) 4.3 % 0-5 [facility] Glucose [Mass/Vol] 66 mg/dL 74-106 [facility] Neutrophils (Bld) [#/Vol] 6.7 10*3/uL 2.0-7.7 [facility] Neutrophils/100 WBC (Bld) 65.7 % 47-70 [facility] Potassium [Moles/Vol] 3.9 mmol/L 3.5-5.1 [facility] Protein [Mass/Vol] 6.9 g/dL 6.4-8.2 [facility] Sodium [Moles/Vol] 138 mmol/L 136-145 [facility] WBC (Bld) [#/Vol] 10.2 10*3/uL 4.4-11.0 [facility] Blood erythrocytes count (nu mber/volume)Ordered By: Mani Esquivel on 02-24-2023 RBC (Bld) [#/Vol] 4.82 10*6/uL 4.6-6.2 [facility] Blood hemoglobin measurement (mass/volume)Ordered By: Mani Esquivel on 02-24-2023 Hemoglobin (Bld) [Mass/Vol] 13.9 g/dL 13.0-16. 5 [facility] Blood lymphocytes/100 leukoc ytesOrdered By: Mani Esquivel on 02-24-2023 Lymphocytes/100 WBC (Bld) 18.5 % 19-41 [facility] Blood monocytes/100 leukocyt esOrdered By: Mani Esquivel on 02-24-2023 Monocytes/100 WBC (Bld) 10.7 % 0-10 [facility] Blood platelet mean volumeOr dered By: Mani Esquivel on 02-24-2023 Platelet mean volume (Bld) [Entitic vol] 10.7 fL 6.2-12.0 [facility] Determination of erythrocyte mean corpuscular volume (MCV)Ordered By: Mani Esquivel on 02-24-2023 MCV (RBC) [Entitic vol] 86.9 fL 80-94 [facility] Direct bilirubinOrdered By: Mani Esquivel on 02-24-2023 Bilirubin.direct [Mass/Vol] 0.10 mg/dL 0.00-0.3 0 [facility] Hematocrit Auto (Bld) [Volum e fraction]Ordered By: Mani Esquivel on 02-24-2023 Hematocrit (Bld) [Volume fraction] 41.9 % 40-54 [facility] Laboratory - Chemistry and C hemistry - challengeOrdered By: Mani Esquivel on 02-24-2023 ALP [Catalytic activity/Vol] 61 U/L 45-117 [facility] ALT [Catalytic activity/Vol] 33 U/L 16-61 [facility] CO2 [Moles/Vol] 24.0 mmol/L 21.0-32.0 [facility] Globulin (S) [Mass/Vol] 3.6 g/dL 2.2-4.2 [facility] Lipase [Catalytic activity/Vol] 96 U/L 13-75 [facility] Comment on above: Please note:LIPASE r evised reference range effective 22. New Lipase methodology. Expected to produce lower values than the previous assay method. NEW Reference Range: 13 - 75 U/L Urea nitrogen/Creatinine [Mass ratio] 20.0 mg/mg 10-20 [facility] - Hematology and Cell countsOrdered By: Mani Esquivel on 02-24-2023 Erythrocyte distribution width (RBC) [Entitic vol] 42.4 fL 35.1-43.9 [facility] Erythrocyte distribution width (RBC) [Ratio] 13.4 % 11.6-14.6 [facility] Immature granulocytes/100 WBC (Bld) 0.400 % 0.0-0.9 [facility] Comment on above: IG% - Immature Granu locytes (promyelocytes, myelocytes and metamyelocytes) > 1% indicates that a LEFT SHIFT is Present. MCH (RBC) [Entitic mass] 28.8 pg 27.0-32.0 [facility] Nucleated RBC/100 WBC (Bld) [Ratio] 0 % 0-5 [facility] MCHC Auto (RBC) [Mass/Vol]Or dered By: Mani Esquivel on 02-24-2023 MCHC (RBC) [Mass/Vol] 33.2 g/dL 32-36 [facility] No Panel InformationOrdered By: Mani Esquivel on 02-24-2023 Estimated Creatinine Clearance Calc 68.80 ml/min [facility] Estimated GFR (MDRD) Amer 93 mL/min >60 [facility] Comment on above: GFR Calc Estimated GFR (MDRD) Non-Af Amer 77 mL/min >60 [facility] Comment on above: Non- GFR Calc Troponin I High Sensitivity 7 pg/mL 3.0-78.0 [facility] Comment on above: Please Note: New Carmen t Units and Gender Specific Reference Ranges. For more information see Policy Stat Procedure Pierre High Sensitivity Troponin (TNIH) and attachments. Platelets bldOrdered By: Rashel Esquivel on 02-24-2023 Platelets (Bld) [#/Vol] 234 10*3/uL 150-450 [facility] Serum or plasma albumin nahomy urement (mass/volume)Ordered By: Mani Esquivel on 02-24-2023 Albumin [Mass/Vol] 3.3 g/dL 3.2-5.0 [facility] Serum or plasma calcium nahomy urement (mass/volume)Ordered By: Main Esquivel on 02-24-2023 Calcium [Mass/Vol] 8.9 mg/dL 8.5-10.1 [facility] Serum or plasma creatinine m easurement (mass/volume)Ordered By: Mani Esquivel on 02-24-2023 Creatinine [Mass/Vol] 1.00 mg/dL 0.70-1.30 [facility] Comment on above: The validity of the calculated GFR & GFRAA in patients over 70 years has not been determined. Clinical correlation is essential. Serum or plasma urea nitroge n measurement (mass/volume)Ordered By: Mani Esquivel on 02-24-2023 Urea nitrogen [Mass/Vol] 20 mg/dL 7-18 [facility] Thin prep Papanicolaou smear with manual screeningOrdered By: Mani Esquivel on 02-24-2023 Thin prep Papanicolaou smear with manual screening 21 U/L 15-37 [facility] Thin prep Papanicolaou smear with manual screening 8 5-15 [facility] XR ANKLE GENERAL 3V AP/LAT/O BL LEFTon 02-16-2023 [facility] XR Ankle - left AP and Later al and obliqueon 02-16-2023 IMPRESSION: Degenerative changes in the left ankle with mild soft tissue swelling. No acute fracture seen. Patient can be reevaluated in 10-14 days if symptoms persist. Communications Editor: BERNIE Transcribe Date/Time: Feb 16 2023 3:38P Dictated by : XOCHITL SHIPMAN MD This examination was interpreted and the report reviewed and electronically signed by: XOCHITL SHIPMAN MD on Feb 16 2023 3:40PM [facility] DIVISION OF RADIOLOGY * * *Final Report* [...] the lateral malleolus. DIVISION OF RADIOLOGY Provider, [facility] - 02/16/2023 * * *Final Report* * [...] reevaluated in 10-14 days if symptoms persist. Communications Editor: BERNIE Transcribe Date/Time: Feb 16 2023 3:38P Dictated by : XOCHITL SHIPMAN MD This examination was interpreted and the report reviewed and electronically signed by: XOCHITL SHIPMAN MD on Feb 16 2023 3:40PM EST [facility] Radiology Study observation (narrative) [facility] XR Ankle - left AP and Later al and obliqueOrdered By: [facility] Provider on 02-16-2023 [facility] Absolute lymphocyte countOrd ered By: Dr. Taylor on 11-21-2022 Lymphocytes Auto (Unsp spec) [#/Vol] 2.17 10*3/uL 0.83-4.51 [facility] Basophil percentageOrdered B y: Dr. Taylor on 11-21-2022 Basophils/100 WBC (Bld) 0.5 % 0-1 [facility] Chloride [Moles/Vol] 102 mmol/L 98-107 [facility] Eosinophils/100 WBC (Bld) 3.3 % 0-5 [facility] Glucose [Mass/Vol] 153 mg/dL 74-106 [facility] Comment on above: Fasting Glucose resu lt greater than or equal to 126 mg/dL suggests DIABETES MELLITUS per A.D.A. criteria. Neutrophils (Bld) [#/Vol] 7.9 10*3/uL 2.0-7.7 [facility] Neutrophils/100 WBC (Bld) 65.5 % 47-70 [facility] Potassium [Moles/Vol] 3.9 mmol/L 3.5-5.1 [facility] Sodium [Moles/Vol] 134 mmol/L 136-145 [facility] WBC (Bld) [#/Vol] 12.1 10*3/uL 4.4-11.0 [facility] Blood erythrocytes count (nu mber/volume)Ordered By: Dr. Taylor on 11-21-2022 RBC (Bld) [#/Vol] 5.03 10*6/uL 4.6-6.2 [facility] Blood hemoglobin measurement (mass/volume)Ordered By: Dr. Taylor on 11-21-2022 Hemoglobin (Bld) [Mass/Vol] 14.7 g/dL 13.0-16. 5 [facility] Blood lymphocytes/100 leukoc ytesOrdered By: Dr. Taylor on 11-21-2022 Lymphocytes/100 WBC (Bld) 17.9 % 19-41 [facility] Blood monocytes/100 leukocyt esOrdered By: Dr. Taylor on 11-21-2022 Monocytes/100 WBC (Bld) 12.4 % 0-10 [facility] Blood platelet mean volumeOr dered By: Dr. Taylor on 11-21-2022 Platelet mean volume (Bld) [Entitic vol] 11.2 fL 6.2-12.0 [facility] Determination of erythrocyte mean corpuscular volume (MCV)Ordered By: Dr. Taylor on 11-21-2022 MCV (RBC) [Entitic vol] 85.5 fL 80-94 [facility] Glucose Glucometer (BldC) [M ass/Vol]Ordered By: Dr. Kebede on 11-21-2022 Glucose [Mass/Vol] 160 mg/dL 74-106 [facility] Comment on above: MANAGEMENT OF PATIEN T CARE PER NURSING PROTOCOL Hematocrit Auto (Bld) [Volum e fraction]Ordered By: Dr. Taylor on 11-21-2022 Hematocrit (Bld) [Volume fraction] 43.0 % 40-54 [facility] Laboratory - Chemistry and C hemistry - challengeOrdered By: Dr. Stevenson on 11-21-2022 Magnesium [Mass/Vol] 2.0 mg/dL 1.6-2.6 [facility] Laboratory - Chemistry and C hemistry - challengeOrdered By: Dr. Taylor on 11-21-2022 CO2 [Moles/Vol] 24.0 mmol/L 21.0-32.0 [facility] Urea nitrogen/Creatinine [Mass ratio] 20.5 mg/mg 10-20 [facility] Laboratory - Hematology and Cell countsOrdered By: Dr. Taylor on 11-21-2022 Erythrocyte distribution width (RBC) [Entitic vol] 41.1 fL 35.1-43.9 [facility] Erythrocyte distribution width (RBC) [Ratio] 13.2 % 11.6-14.6 [facility] Immature granulocytes/100 WBC (Bld) 0.400 % 0.0-0.9 [facility] Comment on above: IG% - Immature Granu locytes (promyelocytes, myelocytes and metamyelocytes) > 1% indicates that a LEFT SHIFT is Present. MCH (RBC) [Entitic mass] 29.2 pg 27.0-32.0 [facility] Nucleated RBC/100 WBC (Bld) [Ratio] 0 % 0-5 [facility] MCHC Auto (RBC) [Mass/Vol]Or dered By: Dr. Taylor on 11-21-2022 MCHC (RBC) [Mass/Vol] 34.2 g/dL 32-36 [facility] No Panel InformationOrdered By: Dr. Kebeed on 11-21-2022 Troponin I High Sensitivity 8 pg/mL 3.0-78.0 [facility] Comment on above: Please Note: New Carmen t Units and Gender Specific Reference Ranges. For more information see Policy Stat Procedure Pierre High Sensitivity Troponin (TNIH) and attachments. No Panel InformationOrdered By: Dr. Taylor on 11-21-2022 Estimated Creatinine Clearance Calc 56.40 ml/min [facility] Estimated GFR (MDRD) Amer 74 mL/min >60 [facility] Comment on above: GFR Calc Estimated GFR (MDRD) Non-Af Amer 61 mL/min >60 [facility] Comment on above: Non- GFR Calc Troponin I High Sensitivity 8 pg/mL 3.0-78.0 [facility] Comment on above: Please Note: New Carmen t Units and Gender Specific Reference Ranges. For more information see Policy Stat Procedure Pierre High Sensitivity Troponin (TNIH) and attachments. Platelets bldOrdered By: Dr. Taylor on 11-21-2022 Platelets (Bld) [#/Vol] 249 10*3/uL 150-450 [facility] Serum or plasma calcium nahomy urement (mass/volume)Ordered By: Dr. Taylor on 11-21-2022 Calcium [Mass/Vol] 9.0 mg/dL 8.5-10.1 [facility] Serum or plasma creatinine m easurement (mass/volume)Ordered By: Dr. Taylor on 11-21-2022 Creatinine [Mass/Vol] 1.22 mg/dL 0.70-1.30 [facility] Comment on above: The validity of the calculated GFR & GFRAA in patients over 70 years has not been determined. Clinical correlation is essential. Serum or plasma urea nitroge n measurement (mass/volume)Ordered By: Dr. Taylor on 11-21-2022 Urea nitrogen [Mass/Vol] 25 mg/dL 7-18 [facility] Thin prep Papanicolaou smear with manual screeningOrdered By: Dr. Taylor on 11-21-2022 Thin prep Papanicolaou smear with manual screening 8 5-15 [facility] Absolute lymphocyte counton 04-08-2022 Lymphocytes Auto (Unsp spec) [#/Vol] 1.70 10*3/uL 0.83-4.51 [facility] Work Phone: [phone] Basophil percentageon 2021 Basophils/100 WBC (Bld) 0.4 % 0-1 [facility] Work Phone: [phone] Chloride [Moles/Vol] 103 mmol/L 98-107 [facility] Work Phone: Eosinophils/100 WBC (Bld) 3.1 % 0-5 [facility] Work Phone: [phone] Glucose [Mass/Vol] 138 mg/dL 74-106 [facility] Work Phone: [phone] Comment on above: Fasting Glucose resu lt greater than or equal to 126 mg/dL suggests DIABETES MELLITUS per A.D.A. criteria. Neutrophils (Bld) [#/Vol] 7.1 10*3/uL 2.0-7.7 [facility] Work Phone: Neutrophils/100 WBC (Bld) 68.6 % 47-70 [facility] Work Phone: [phone] Potassium [Moles/Vol] 4.6 mmol/L 3.5-5.1 [facility] Work Phone: [phone] Comment on above: Slight Hemolysis, Re sult may be falsely increased. Sodium [Moles/Vol] 137 mmol/L 136-145 [facility] Work Phone: WBC (Bld) [#/Vol] 10.4 10*3/uL 4.4-11.0 [facility] Work Phone: Blood erythrocytes count (nu mber/volume)on 04-08-2022 RBC (Bld) [#/Vol] 5.10 10*6/uL 4.6-6.2 [facility] Work Phone: Blood hemoglobin measurement (mass/volume)on 04-08-2022 Hemoglobin (Bld) [Mass/Vol] 14.0 g/dL 13.0-16. 5 [facility] Work Phone: Blood lymphocytes/100 leukoc yteson 04-08-2022 Lymphocytes/100 WBC (Bld) 16.4 % 19-41 [facility] Work Phone: Blood monocytes/100 leukocyt eson 04-08-2022 Monocytes/100 WBC (Bld) 11.1 % 0-10 [facility] Work Phone: Blood platelet mean volumeon 04-08-2022 Platelet mean volume (Bld) [Entitic vol] 11.5 fL 6.2-12.0 [facility] Work Phone: [phone] Determination of erythrocyte mean corpuscular volume (MCV)on 04-08-2022 MCV (RBC) [Entitic vol] 85.1 fL 80-94 [facility] Work Phone: Hematocrit Auto (Bld) [Volum e fraction]on 04-08-2022 Hematocrit (Bld) [Volume fraction] 43.4 % 40-54 [facility] Work Phone: [phone] Laboratory - Chemistry and C hemistry - challengeon 04-08-2022 CO2 [Moles/Vol] 26.0 mmol/L 21.0-32.0 [facility] Work Phone: [phone] Urea nitrogen/Creatinine [Mass ratio] 17.2 mg/mg 10-20 [facility] Work Phone: [phone] Laboratory - Hematology and Cell countson 04-08-2022 Erythrocyte distribution width (RBC) [Entitic vol] 45.3 fL 35.1-43.9 [facility] Work Phone: Erythrocyte distribution width (RBC) [Ratio] 14.5 % 11.6-14.6 [facility] Work Phone: Immature granulocytes/100 WBC (Bld) 0.400 % 0.0-0.9 [facility] Work Phone: Comment on above: IG% - Immature Granu locytes (promyelocytes, myelocytes and metamyelocytes) > 1% indicates that a LEFT SHIFT is Present. MCH (RBC) [Entitic mass] 27.5 pg 27.0-32.0 [facility] Work Phone: Nucleated RBC/100 WBC (Bld) [Ratio] 0 % 0-5 [facility] Work Phone: MCHC Auto (RBC) [Mass/Vol]on 04-08-2022 MCHC (RBC) [Mass/Vol] 32.3 g/dL 32-36 [facility] Work Phone: No Panel Informationon 04-08 Troponin I High Sensitivity 9 pg/mL 3.0-78.0 [facility] Work Phone: Comment on above: Please Note: New Carmen t Units and Gender Specific Reference Ranges. For more information see Policy Stat Procedure Pierre High Sensitivity Troponin (TNIH) and attachments. Estimated Creatinine Clearance Calc 59.31 ml/min [facility] Work Phone: Estimated GFR (MDRD) Amer 78 mL/min >60 [facility] Work Phone: Comment on above: GFR Calc Estimated GFR (MDRD) Non-Af Amer 65 mL/min >60 [facility] Work Phone: Comment on above: Non- GFR Calc Platelets bldon 04-08-2022 Platelets (Bld) [#/Vol] 247 10*3/uL 150-450 [facility] Work Phone: Serum or plasma calcium nahomy urement (mass/volume)on 04-08-2022 Calcium [Mass/Vol] 9.2 mg/dL 8.5-10.1 [facility] Work Phone: Serum or plasma creatinine m easurement (mass/volume)on 04-08-2022 Creatinine [Mass/Vol] 1.16 mg/dL 0.70-1.30 [facility] Work Phone: Comment on above: The validity of the calculated GFR & GFRAA in patients over 70 years has not been determined. Clinical correlation is essential. Serum or plasma urea nitroge n measurement (mass/volume)on 04-08-2022 Urea nitrogen [Mass/Vol] 20 mg/dL 7-18 [facility] Work Phone: Thin prep Papanicolaou smear with manual screeningon 04-08-2022 Thin prep Papanicolaou smear with manual screening 8 5-15 [facility] Work Phone: Basophil percentageon 2021 Chloride [Moles/Vol] 104 mmol/L 98-107 [facility] Work Phone: Glucose [Mass/Vol] 197 mg/dL 74-106 [facility] Work Phone: Comment on above: Fasting Glucose resu lt greater than or equal to 126 mg/dL suggests DIABETES MELLITUS per A.D.A. criteria. Potassium [Moles/Vol] 3.9 mmol/L 3.5-5.1 [facility] Work Phone: Sodium [Moles/Vol] 136 mmol/L 136-145 [facility] Work Phone: Laboratory - Chemistry and C hemistry - challengeon 02-07-2022 CO2 [Moles/Vol] 25.0 mmol/L 21.0-32.0 [facility] Work Phone: Urea nitrogen/Creatinine [Mass ratio] 16.8 mg/mg 10-20 [facility] Work Phone: No Panel Informationon 02-07 Estimated GFR (MDRD) Amer 86 mL/min >60 [facility] Work Phone: Comment on above: GFR Calc Estimated GFR (MDRD) Non-Af Amer 71 mL/min >60 [facility] Work Phone: Comment on above: Non- GFR Calc Serum or plasma calcium nahomy urement (mass/volume)on 02-07-2022 Calcium [Mass/Vol] 8.8 mg/dL 8.5-10.1 [facility] Work Phone: Serum or plasma creatinine m easurement (mass/volume)on 02-07-2022 Creatinine [Mass/Vol] 1.07 mg/dL 0.70-1.30 [facility] Work Phone: Comment on above: The validity of the calculated GFR & GFRAA in patients over 70 years has not been determined. Clinical correlation is essential. Serum or plasma urea nitroge n measurement (mass/volume)on 02-07-2022 Urea nitrogen [Mass/Vol] 18 mg/dL 7-18 [facility] Work Phone: Thin prep Papanicolaou smear with manual screeningon 02-07-2022 Thin prep Papanicolaou smear with manual screening 7 5-15 [facility] Work Phone: XR Chest PA and Lateralon IMPRESSION: No acute radiographic abnormality. Communications Editor: BERNIE Transcribe Date/Time: Jul 13 2021 10:18A Dictated by : SILVIO WORTHY MD This examination was interpreted and the report reviewed and electronically signed by: SILVIO WORTHY MD on Jul 13 2021 10:19AM [facility] DIVISION OF RADIOLOGY * * *Final Report* [...] in the spine. DIVISION OF RADIOLOGY Provider, Dara Joel [facility] - 07/13/2021 * * *Final Report* * [...] spine. IMPRESSION IMPRESSION: No acute radiographic abnormality. Communications Editor: BERNIE Transcribe Date/Time: Jul 13 2021 10:18A Dictated by : SILVIO WORTHY MD This examination was interpreted and the report reviewed and electronically signed by: SILVIO WORTHY MD on Jul 13 2021 10:19AM EST [facility] Radiology Study observation (narrative) [facility] XR Chest PA and LateralOrder ed By: [facility] Provider on 07-13-2021 [facility] XR Ribs - right Views and est PAon 05-25-2021 IMPRESSION: No acute process is seen. Communications Editor: [facility] Transcribe Date/Time: May 25 2021 4:16P Dictated by : SHAR ESTEBAN MD This examination was interpreted and the report reviewed and electronically signed by: SHAR ESTEBAN MD on May 25 2021 4:18PM [facility] DIVISION OF RADIOLOGY * * *Final Report* [...] spine appear stable. DIVISION OF RADIOLOGY Provider, [facility] - 05/25/2021 * * *Final Report* * [...] IMPRESSION IMPRESSION: No acute process is seen. Communications Editor: [facility] Transcribe Date/Time: May 25 2021 4:16P Dictated by : SHAR ESTEBAN MD This examination was interpreted and the report reviewed and electronically signed by: SHAR ESTEBAN MD on May 25 2021 4:18PM EST [facility] Radiology Study observation (narrative) [facility] XR Ribs - right Views and Ch est PAOrdered By: [facility] Provider on 05-25-2021 [facility] XR Chest PA and Lateralon IMPRESSION: No acute radiographic abnormality is evident. Communications Editor: [facility] Transcribe Date/Time: Jan 24 2021 2:44P Dictated by : ALY SABA MD This examination was interpreted and the report reviewed and electronically signed by: ALY SABA MD on Jan 24 2021 2:47PM EST DIVISION OF RADIOLOGY * * *Final [...] the thoracic spine. DIVISION OF RADIOLOGY Provider, Dara Maldonado [facility] - 01/24/2021 * * *Final Report* * [...] IMPRESSION: No acute radiographic abnormality is evident. Communications Editor: [facility] Transcribe Date/Time: Jan 24 2021 2:44P Dictated by : ALY SABA MD This examination was interpreted and the report reviewed and electronically signed by: ALY SABA MD on Jan 24 2021 2:47PM EST [facility] Radiology Study observation (narrative) [facility] XR Chest PA and LateralOrder ed By: [facility] Provider on 01-24-2021 [facility] Vital Signs Date Time Vital Sign Value Performing Clinician Facility 04-08-2025 07:17-0400 Body mass index (BMI) [Ratio] 33.1 kg/m2 Dr. Mathieu Virgen MD Work Phone: 4(581)230-030536 [place] [address] 04-08-2025 07:17-0400 Body temperature 97.2 [degF] Dr. Mathieu Virgen MD Work Phone: 6(322)389-629717 [place] [address] 04-08-2025 07:17-0400 Body weight 113.[address] Mathieu Virgen MD Work Phone: 6(158)181-279917 [place] [address] 04-08-2025 07:17-0400 Diastolic blood pressure 59 mm[Hg] Dr. Mathieu Virgen MD Work Phone: 0(436)309-125317 [place] [address] 04-08-2025 07:17-0400 Heart rate 78 /min Dr. Mathieu Virgen MD Work Phone: 2(249)922-427817 [place] [address] 04-08-2025 07:17-0400 Respiratory rate 20 /min Dr. Mathieu Virgen MD Work Phone: 4(323)122-600717 [place] [address] 04-08-2025 07:17-0400 SaO2% (BldA) [Mass fraction] 95 % Dr. Mathieu Virgen MD Work Phone: 9(434)874-094717 [place] [address] 04-08-2025 07:17-0400 Systolic blood pressure 114 mm[Hg] Dr. Mathieu Virgen MD Work Phone: 7(974)274-041517 [place] [address] 02-26-2025 14:00-0400 Body height 185.[address] Mathieu Virgen MD Work Phone: 5(079)409-504117 [place] [address] 02-26-2025 14:00-0400 Body weight 119.[address] Mathieu Virgen MD Work Phone: 8(344)696-275617 [place] [address] 02-26-2025 14:00-0400 Heart rate 82 /min Dr. Mathieu Virgen MD Work Phone: 5(409)012-577617 [place] [address] 02-26-2025 14:00-0400 SaO2% (BldA) [Mass fraction] 94 % Dr. Mathieu Virgen MD Work Phone: 7(597)011-677317 [place] [address] 01-26-2025 14:24-0400 Body mass index (BMI) [Ratio] 35.49 kg/m2 Mathieu Virgen MD Work Phone: [facility] 01-26-2025 14:24-0400 Body weight 122.02 kg Mathieu Virgen MD Work Phone: [facility] 01-26-2025 14:24-0400 Diastolic blood pressure 64 mm[Hg] Mathieu Virgen MD Work Phone: [facility] 01-26-2025 14:24-0400 Heart rate 82 /min Mathieu Virgen MD Work Phone: [facility] 01-26-2025 14:24-0400 SaO2% (BldA) [Mass fraction] 94 % Mathieu Virgen MD Work Phone: [facility] 01-26-2025 14:24-0400 Systolic blood pressure 108 mm[Hg] Mathieu Virgen MD Work Phone: [facility] 01-26-2025 09:39-0400 Body height 185.[address] Mathieu Virgen MD Work Phone: [facility] 01-26-2025 09:39-0400 Body mass index (BMI) [Ratio] 35.2 kg/m2 Dr. Mathieu Virgen MD Work Phone: 5(919)381-596636 [place] [address] 01-26-2025 09:39-0400 Body weight 121.[address] Mathieu Virgen MD Work Phone: [facility] 01-26-2025 09:39-0400 Diastolic blood pressure 73 mm[Hg] Dr. Mathieu Virgen MD Work Phone: [facility] 01-26-2025 09:39-0400 Heart rate 80 /min Dr. Mathieu Virgen MD Work Phone: [facility] 01-26-2025 09:39-0400 Respiratory rate 20 /min Dr. Mathieu Virgen MD Work Phone: [facility] 01-26-2025 09:39-0400 Systolic blood pressure 141 mm[Hg] Dr. Mathieu Virgen MD Work Phone: 6(758)348-363536 [place] [address] 01-21-2025 08:57-0400 Body mass index (BMI) [Ratio] 35.4 kg/m2 Dr. Mathieu Virgen MD Work Phone: 4(204)099-602317 [place] [address] 01-21-2025 08:57-0400 Body temperature 97.7 [degF] Dr. Mathieu Virgen MD Work Phone: 3(445)671-206517 [place] [address] 01-21-2025 08:57-0400 Body weight 122.[address] Mathieu Virgen MD Work Phone: 4(995)445-710217 [place] [address] 01-21-2025 08:57-0400 Diastolic blood pressure 66 mm[Hg] Dr. Mathieu Virgen MD Work Phone: 0(579)537-713817 [place] [address] 01-21-2025 08:57-0400 Heart rate 75 /min Dr. Mahtieu Virgen MD Work Phone: 6(467)868-221017 [place] [address] 01-21-2025 08:57-0400 Respiratory rate 20 /min Dr. Mathieu Virgen MD Work Phone: 9(517)990-288817 [place] [address] 01-21-2025 08:57-0400 SaO2% (BldA) [Mass fraction] 94 % Dr. Mathieu Virgen MD Work Phone: 1(360)120-962317 [place] [address] 01-21-2025 08:57-0400 Systolic blood pressure 124 mm[Hg] Dr. Mathieu Virgen MD Work Phone: 4(873)544-938817 [place] [address] 01-20-2025 03:54-0400 Body temperature 98.1 [degF] Dr. Mathieu Virgen MD Work Phone: 1(282)504-072417 [place] [address] 01-20-2025 03:54-0400 Diastolic blood pressure 59 mm[Hg] Dr. Mathieu Virgen MD Work Phone: 1(021)327-387817 [place] [address] 01-20-2025 03:54-0400 Heart rate 70 /min Dr. Mathieu Virgen MD Work Phone: 4(406)665-001117 [place] [address] 01-20-2025 03:54-0400 Respiratory rate 18 /min Dr. Mathieu Virgen MD Work Phone: 1(868)785-702417 [place] [address] 01-20-2025 03:54-0400 SaO2% (BldA) [Mass fraction] 95 % Dr. Mathieu Virgen MD Work Phone: [facility] 01-20-2025 03:54-0400 Systolic blood pressure 135 mm[Hg] Dr. Mathieu Virgen MD Work Phone: [facility] 01-19-2025 22:43-0400 Body mass index (BMI) [Ratio] 35.4 kg/m2 Dr. Mathieu Virgen MD Work Phone: [facility] 01-19-2025 22:43-0400 Body weight 122.[address] Mathieu Virgen MD Work Phone: [facility] 01-12-2025 16:57-0400 Body mass index (BMI) [Ratio] 35.36 kg/m2 Mathieu Virgen MD Work Phone: [facility] 01-12-2025 16:57-0400 Body weight 121.56 kg Mathieu Virgen MD Work Phone: [facility] 01-12-2025 16:57-0400 Diastolic blood pressure 62 mm[Hg] Mathieu Virgen MD Work Phone: [facility] 01-12-2025 16:57-0400 Heart rate 77 /min Mathieu Virgen MD Work Phone: [facility] 01-12-2025 16:57-0400 SaO2% (BldA) [Mass fraction] 93 % Mathieu Virgen MD Work Phone: [facility] 01-12-2025 16:57-0400 Systolic blood pressure 112 mm[Hg] Mathieu Virgen MD Work Phone: [facility] 12-11-2024 13:10-0400 Body mass index (BMI) [Ratio] 36 kg/m2 Dr. Mathieu Virgen MD Work Phone: [facility] 12-11-2024 13:10-0400 Body weight 123.[address] Mathieu Virgen MD Work Phone: [facility] 12-11-2024 13:10-0400 Diastolic blood pressure 58 mm[Hg] Dr. Mathieu Virgen MD Work Phone: [facility] 12-11-2024 13:10-0400 Heart rate 72 /min Dr. Mathieu Virgen MD Work Phone: [facility] 12-11-2024 13:10-0400 Respiratory rate 18 /min Dr. Mathieu Virgen MD Work Phone: [facility] 12-11-2024 13:10-0400 Systolic blood pressure 113 mm[Hg] Dr. Mathieu Virgen MD Work Phone: [facility] 12-02-2024 15:36-0400 Body height 185.4 cm Mathieu Virgen MD Work Phone: [facility] 12-02-2024 15:36-0400 Body mass index (BMI) [Ratio] 36.02 kg/m2 Mathieu Virgen MD Work Phone: [facility] 12-02-2024 15:36-0400 Body weight 123.83 kg Mathieu Virgen MD Work Phone: [facility] 12-02-2024 15:36-0400 Diastolic blood pressure 54 mm[Hg] Mathieu Virgen MD Work Phone: [facility] 12-02-2024 15:36-0400 Heart rate 78 /min Mathieu Virgen MD Work Phone: [facility] 12-02-2024 15:36-0400 SaO2% (BldA) [Mass fraction] 95 % Mathieu Virgen MD Work Phone: [facility] 12-02-2024 15:36-0400 Systolic blood pressure 92 mm[Hg] Mathieu Virgen MD Work Phone: [facility] 11-03-2024 02:21-0500 Body temperature 98 [degF] Dr. Mathieu Virgen MD Work Phone: [facility] 11-03-2024 02:21-0500 Diastolic blood pressure 72 mm[Hg] Dr. Mathieu Virgen MD Work Phone: [facility] 11-03-2024 02:21-0500 Heart rate 72 /min Dr. Mathieu Virgen MD Work Phone: [facility] 11-03-2024 02:21-0500 Respiratory rate 18 /min Dr. Mathieu Virgen MD Work Phone: [facility] 11-03-2024 02:21-0500 SaO2% (BldA) [Mass fraction] 96 % Dr. Mathieu Virgen MD Work Phone: [facility] 11-03-2024 02:21-0500 Systolic blood pressure 121 mm[Hg] Dr. Mathieu Virgen MD Work Phone: 5(848)444-798036 [place] [address] 11-03-2024 00:05-0500 Body height 185.[address] Mathieu Virgen MD Work Phone: 0(454)381-672436 [place] [address] 11-03-2024 00:05-0500 Body mass index (BMI) [Ratio] 35.9 kg/m2 Dr. Mathieu Virgen MD Work Phone: [facility] 11-03-2024 00:05-0500 Body weight 123.[address] Mathieu Virgen MD Work Phone: [facility] 10-31-2024 14:40-0500 Body mass index (BMI) [Ratio] 36.15 kg/m2 Sukh Hall APRN.RN ORTHOPAEDIC Work Phone: [facility] 10-31-2024 14:40-0500 Body weight 124.29 kg Sukh Hall APRN.RN ORTHOPAEDIC Work Phone: [facility] 10-31-2024 14:40-0500 Diastolic blood pressure 68 mm[Hg] Sukh Hall APRN.RN ORTHOPAEDIC Work Phone: [facility] 10-31-2024 14:40-0500 Heart rate 78 /min Sukh Hall APRN.RN ORTHOPAEDIC Work Phone: [facility] 10-31-2024 14:40-0500 Respiratory rate 18 /min Sukh Hall APRN.RN ORTHOPAEDIC Work Phone: [facility] 10-31-2024 14:40-0500 SaO2% (BldA) [Mass fraction] 97 % Sukh Hall TOLL LINE INSPECTOR.RN ORTHOPAEDIC Work Phone: [facility] 10-31-2024 14:40-0500 Systolic blood pressure 114 mm[Hg] Sukh Hall TOLL LINE INSPECTOR.RN ORTHOPAEDIC Work Phone: [facility] 09-23-2024 15:27-0500 Body mass index (BMI) [Ratio] 37.2 kg/m2 Dr. Mathieu Virgen MD Work Phone: 0(554)827-353636 [place] [address] 09-23-2024 15:27-0500 Body weight 127.[address] Mathieu Virgen MD Work Phone: 5(809)252-554617 [place] [address] 09-23-2024 15:27-0500 Diastolic blood pressure 80 mm[Hg] Dr. Mathieu Virgen MD Work Phone: 4(661)322-158717 [place] [address] 09-23-2024 15:27-0500 Heart rate 74 /min Dr. Mathieu Virgen MD Work Phone: 0(034)951-846217 [place] [address] 09-23-2024 15:27-0500 Respiratory rate 18 /min Dr. Mathieu Virgen MD Work Phone: 1(925)069-502617 [place] [address] 09-23-2024 15:27-0500 SaO2% (BldA) [Mass fraction] 94 % Dr. Mathieu Virgen MD Work Phone: 9(117)475-442436 [place] [address] 09-23-2024 15:27-0500 Systolic blood pressure 162 mm[Hg] Dr. Mathieu Virgen MD Work Phone: [facility] 09-23-2024 14:42-0500 Body mass index (BMI) [Ratio] 37.21 kg/m2 Denisha Shepard TOLL LINE INSPECTOR.RN ORTHOPAEDIC Work Phone: [facility] 09-23-2024 14:42-0500 Body weight 127.91 kg Denisha Shepard TOLL LINE INSPECTOR.RN ORTHOPAEDIC Work Phone: [facility] 09-23-2024 14:42-0500 Diastolic blood pressure 68 mm[Hg] Denisha Shepard TOLL LINE INSPECTOR.RN ORTHOPAEDIC Work Phone: [facility] 09-23-2024 14:42-0500 Heart rate 79 /min Denisha Shepard TOLL LINE INSPECTOR.RN ORTHOPAEDIC Work Phone: [facility] 09-23-2024 14:42-0500 Respiratory rate 16 /min Denisha Shepard TOLL LINE INSPECTOR.RN ORTHOPAEDIC Work Phone: [facility] 09-23-2024 14:42-0500 SaO2% (BldA) [Mass fraction] 99 % Denisha Shepard TOLL LINE INSPECTOR.RN ORTHOPAEDIC Work Phone: [facility] 09-23-2024 14:42-0500 Systolic blood pressure 118 mm[Hg] Denisha Shepard TOLL LINE INSPECTOR.RN ORTHOPAEDIC Work Phone: 2(733)341-072448 [place] [address] 09-20-2024 19:33-0500 Body temperature 98.2 [degF] Dr. Mathieu Virgen MD Work Phone: 5(800)972-392236 [place] [address] 09-20-2024 19:33-0500 Diastolic blood pressure 72 mm[Hg] Dr. Mathieu Virgen MD Work Phone: 7(718)285-068836 [place] [address] 09-20-2024 19:33-0500 Heart rate 79 /min Dr. Mathieu Virgen MD Work Phone: 6(542)406-031936 [place] [address] 09-20-2024 19:33-0500 Respiratory rate 19 /min Dr. Mathieu Virgen MD Work Phone: 7(363)656-833636 [place] [address] 09-20-2024 19:33-0500 SaO2% (BldA) [Mass fraction] 96 % Dr. Mathieu Virgen MD Work Phone: 9(539)881-911436 [place] [address] 09-20-2024 19:33-0500 Systolic blood pressure 118 mm[Hg] Dr. Mathieu Virgen MD Work Phone: 4(529)678-332917 [place] [address] 09-20-2024 17:00-0500 Inhaled oxygen flow rate 2 L/min Dr. Mathieu Virgen MD Work Phone: 6(541)196-454517 [place] [address] 09-20-2024 15:46-0500 Body mass index (BMI) [Ratio] 37.8 kg/m2 Dr. Mathieu Virgen MD Work Phone: 5(298)226-352436 [place] [address] 01-04-2025 15:46-0500 Body weight 130.[address] Mathieu Virgen MD Work Phone: 9(713)368-442517 [place] [address] 09-03-2024 15:19-0500 Body mass index (BMI) [Ratio] 37.5 kg/m2 Dr. Mathieu Virgen MD Work Phone: 0(633)303-210517 [place] [address] 09-03-2024 15:19-0500 Body weight 129.[address] Mathieu Virgen MD Work Phone: 6(063)901-536017 [place] [address] 09-03-2024 15:19-0500 Diastolic blood pressure 69 mm[Hg] Dr. Mathieu Virgen MD Work Phone: 8(865)438-239517 [place] [address] 09-03-2024 15:19-0500 Heart rate 76 /min Dr. Mathieu Virgen MD Work Phone: 0(765)696-468917 [place] [address] 09-03-2024 15:19-0500 Inhaled oxygen flow rate 2 L/min Dr. Mathieu Virgen MD Work Phone: 9(581)194-854217 [place] [address] 09-03-2024 15:19-0500 Respiratory rate 18 /min Dr. Mathieu Virgen MD Work Phone: 5(288)706-760617 [place] [address] 09-03-2024 15:19-0500 Systolic blood pressure 109 mm[Hg] Dr. Mathieu Virgen MD Work Phone: 2(015)678-933717 [place] [address] 09-01-2024 07:39-0500 Body temperature 98.2 [degF] Dr. Mathieu Virgen MD Work Phone: 9(473)818-669417 [place] [address] 09-01-2024 07:39-0500 Diastolic blood pressure 78 mm[Hg] Dr. Mathieu Virgen MD Work Phone: 8(092)377-584517 [place] [address] 09-01-2024 07:39-0500 Heart rate 65 /min Dr. Mathieu Virgen MD Work Phone: 1(309)038-032617 [place] [address] 09-01-2024 07:39-0500 Respiratory rate 18 /min Dr. Mathieu Virgen MD Work Phone: 5(230)376-627017 [place] [address] 09-01-2024 07:39-0500 SaO2% (BldA) [Mass fraction] 97 % Dr. Mathieu Virgen MD Work Phone: 6(524)270-432017 [place] [address] 09-01-2024 07:39-0500 Systolic blood pressure 101 mm[Hg] Dr. Mathieu Virgen MD Work Phone: 9(816)847-987217 [place] [address] 09-01-2024 06:00-0500 Inhaled oxygen flow rate 2 L/min Dr. Mathieu Virgen MD Work Phone: 8(316)872-909717 [place] [address] 09-01-2024 04:38-0500 Body mass index (BMI) [Ratio] 38.7 kg/m2 Dr. Mathieu Virgen MD Work Phone: 2(486)634-530917 [place] [address] 09-01-2024 04:38-0500 Body weight [address] Mathieu Virgen MD Work Phone: 1(413)642-597017 [place] [address] 08-13-2024 13:17-0500 Body mass index (BMI) [Ratio] 38.1 kg/m2 Dr. Mathieu Virgen MD Work Phone: 8(223)024-831017 [place] [address] 08-13-2024 13:17-0500 Body weight 131.[address] Mathieu Virgen MD Work Phone: 0(329)869-141217 [place] [address] 08-13-2024 13:17-0500 Diastolic blood pressure 57 mm[Hg] Dr. Mathieu Virgen MD Work Phone: 1(585)278-793017 [place] [address] 08-13-2024 13:17-0500 Heart rate 73 /min Dr. Mathieu Virgen MD Work Phone: 1(066)475-012017 [place] [address] 08-13-2024 13:17-0500 Respiratory rate 16 /min Dr. Mathieu Virgen MD Work Phone: 6(932)956-447617 [place] [address] 08-13-2024 13:17-0500 Systolic blood pressure 99 mm[Hg] Dr. Mathieu Virgen MD Work Phone: 3(275)310-922817 [place] [address] 07-29-2024 12:14-0500 Diastolic blood pressure 50 mm[Hg] Julianna Hood TOLL LINE INSPECTOR.RN ORTHOPAEDIC Work Phone: 9(722)102-445150 [place] [address] 07-29-2024 12:14-0500 Systolic blood pressure 104 mm[Hg] Julianna Suppan TOLL LINE INSPECTOR.RN ORTHOPAEDIC Work Phone: [facility] 07-29-2024 11:29-0500 Body mass index (BMI) [Ratio] 39.32 kg/m2 Julianna Suppan TOLL LINE INSPECTOR.RN ORTHOPAEDIC Work Phone: [facility] 07-29-2024 11:29-0500 Body weight 135.17 kg Julianna Suppan TOLL LINE INSPECTOR.RN ORTHOPAEDIC Work Phone: [facility] 07-29-2024 11:29-0500 Heart rate 70 /min Julianna Suppan TOLL LINE INSPECTOR.RN ORTHOPAEDIC Work Phone: [facility] 07-29-2024 11:29-0500 Respiratory rate 24 /min Julianna Suppan TOLL LINE INSPECTOR.RN ORTHOPAEDIC Work Phone: [facility] 07-29-2024 11:29-0500 SaO2% (BldA) [Mass fraction] 92 % Julianna Suppan TOLL LINE INSPECTOR.RN ORTHOPAEDIC Work Phone: [facility] Comment on above: 2 liters 06-23-2024 14:37-0400 Body mass index (BMI) [Ratio] 39.56 kg/m2 Abril Simin TOLL LINE INSPECTOR.RN ORTHOPAEDIC Work Phone: [facility] 06-23-2024 14:37-0400 Body weight 136 kg Abril Simin TOLL LINE INSPECTOR.RN ORTHOPAEDIC Work Phone: [facility] 06-23-2024 14:37-0400 Diastolic blood pressure 77 mm[Hg] Abril Simin TOLL LINE INSPECTOR.RN ORTHOPAEDIC Work Phone: [facility] 06-23-2024 14:37-0400 Heart rate 82 /min Abril Simin TOLL LINE INSPECTOR.RN ORTHOPAEDIC Work Phone: [facility] 06-23-2024 14:37-0400 Respiratory rate 18 /min Abril Simin TOLL LINE INSPECTOR.RN ORTHOPAEDIC Work Phone: [facility] 06-23-2024 14:37-0400 SaO2% (BldA) [Mass fraction] 95 % Abril Simin TOLL LINE INSPECTOR.RN ORTHOPAEDIC Work Phone: [facility] 06-23-2024 14:37-0400 Systolic blood pressure 155 mm[Hg] Abril Duval TOLL LINE INSPECTOR.RN ORTHOPAEDIC Work Phone: [facility] 06-20-2024 15:38-0400 Body height 185.4 cm Mathieu Virgen MD Work Phone: [facility] 06-20-2024 15:38-0400 Body mass index (BMI) [Ratio] 39.76 kg/m2 Mathieu Virgen MD Work Phone: [facility] 06-20-2024 15:38-0400 Body weight 136.71 kg Mathieu Virgen MD Work Phone: [facility] 06-20-2024 15:38-0400 Diastolic blood pressure 56 mm[Hg] Mathieu Virgen MD Work Phone: [facility] 06-20-2024 15:38-0400 Heart rate 80 /min Mathieu Virgen MD Work Phone: [facility] 06-20-2024 15:38-0400 SaO2% (BldA) [Mass fraction] 94 % Mathieu Virgen MD Work Phone: [facility] 06-20-2024 15:38-0400 Systolic blood pressure 132 mm[Hg] Mathieu Virgen MD Work Phone: [facility] 04-09-2024 14:25-0400 Body mass index (BMI) [Ratio] 40.9 kg/m2 Andrew Guallpa APRN.RN ORTHOPAEDIC Work Phone: [facility] 04-09-2024 14:25-0400 Body temperature 98.8 [degF] Andrew Guallpa APRN.RN ORTHOPAEDIC Work Phone: [facility] 04-09-2024 14:25-0400 Body weight 140.6 kg Andrew Guallpa APRN.RN ORTHOPAEDIC Work Phone: [facility] 04-09-2024 14:25-0400 Diastolic blood pressure 84 mm[Hg] Andrew Guallpa APRN.RN ORTHOPAEDIC Work Phone: [facility] 04-09-2024 14:25-0400 Heart rate 94 /min Andrew Pendlebury TOLL LINE INSPECTOR.RN ORTHOPAEDIC Work Phone: [facility] 04-09-2024 14:25-0400 Respiratory rate 20 /min Andrew Pendlebury TOLL LINE INSPECTOR.RN ORTHOPAEDIC Work Phone: [facility] 04-09-2024 14:25-0400 SaO2% (BldA) [Mass fraction] 93 % Andrew Jasminbury TOLL LINE INSPECTOR.RN ORTHOPAEDIC Work Phone: [facility] 04-09-2024 14:25-0400 Systolic blood pressure 128 mm[Hg] Andrew Pendlebury TOLL LINE INSPECTOR.RN ORTHOPAEDIC Work Phone: [facility] 02-28-2024 11:50-0400 Diastolic blood pressure 86 mm[Hg] NA Travis PA-C Work Phone: [facility] 02-28-2024 11:50-0400 Systolic blood pressure 148 mm[Hg] NA Travis PA-C Work Phone: [facility] 02-28-2024 11:00-0400 Body mass index (BMI) [Ratio] 40.69 kg/m2 NA Travis PA-C Work Phone: [facility] 02-28-2024 11:00-0400 Body weight 139.89 kg NA Travis PA-C Work Phone: [facility] 02-28-2024 11:00-0400 Heart rate 85 /min NA Travis PA-C Work Phone: [facility] 02-28-2024 11:00-0400 SaO2% (BldA) [Mass fraction] 94 % NA Travis PA-C Work Phone: [facility] 02-04-2024 11:33-0400 Body mass index (BMI) [Ratio] 39.18 kg/m2 NA Travis PA-C Work Phone: [facility] 02-04-2024 11:33-0400 Body weight 134.72 kg NA Travis PA-C Work Phone: [facility] 02-04-2024 11:33-0400 Diastolic blood pressure 69 mm[Hg] NA Travis PA-C Work Phone: [facility] 02-04-2024 11:33-0400 Heart rate 73 /min NA Travis PA-C Work Phone: [facility] 02-04-2024 11:33-0400 Respiratory rate 18 /min NA Travis PA-C Work Phone: [facility] 02-04-2024 11:33-0400 SaO2% (BldA) [Mass fraction] 94 % NA Travis PA-C Work Phone: [facility] 02-04-2024 11:33-0400 Systolic blood pressure 113 mm[Hg] NA Travis PA-C Work Phone: [facility] 12-25-2023 13:44-0400 Body weight 130.18 kg Mathieu Virgen MD Work Phone: [facility] [facility] 12-25-2023 13:44-0400 Diastolic blood pressure 80 mm[Hg] Mathieu Virgen MD Work Phone: [facility] 12-25-2023 13:44-0400 Heart rate 73 /min Mathieu Virgen MD Work Phone: [facility] 12-25-2023 13:44-0400 Respiratory rate 18 /min Mathieu Virgen MD Work Phone: [facility] 12-25-2023 13:44-0400 SaO2% (BldA) [Mass fraction] 96 % Mathieu Virgen MD Work Phone: [facility] 12-25-2023 13:44-0400 Systolic blood pressure 122 mm[Hg] Mathieu Virgen MD Work Phone: [facility] 09-22-2023 14:49-0500 Diastolic blood pressure 56 mm[Hg] [facility] 09-22-2023 14:49-0500 Heart rate 75 /min [facility] 09-22-2023 14:49-0500 Respiratory rate 16 /min [facility] 09-22-2023 14:49-0500 SaO2% (BldA) [Mass fraction] 96 % [facility] 09-22-2023 14:49-0500 Systolic blood pressure 121 mm[Hg] [facility] 09-22-2023 10:13-0500 Body height 185.[address] [facility] 09-22-2023 10:13-0500 Body mass index (BMI) [Ratio] 38.2 kg/m2 [facility] 09-22-2023 10:13-0500 Body temperature 96.9 [degF] [facility] 09-22-2023 10:13-0500 Body weight 131.[address] [facility] 07-23-2023 14:18-0500 Diastolic blood pressure 70 mm[Hg] Pio Nicole MD Work Phone: [facility] 07-23-2023 14:18-0500 Heart rate 64 /min Pio Nicole MD Work Phone: [facility] 07-23-2023 14:18-0500 Respiratory rate 20 /min Pio Nicole MD Work Phone: [facility] 07-23-2023 14:18-0500 SaO2% (BldA) [Mass fraction] 96 % Pio Nicole MD Work Phone: [facility] 07-23-2023 14:18-0500 Systolic blood pressure 128 mm[Hg] Pio Nicole MD Work Phone: [facility] 06-09-2023 10:41-0400 Body temperature 98.6 [degF] Pio Nicole MD Work Phone: [facility] 06-09-2023 10:41-0400 Body weight 132.45 kg Pio Nicole MD Work Phone: [facility] 06-09-2023 10:41-0400 Diastolic blood pressure 68 mm[Hg] Pio Nicole MD Work Phone: [facility] 06-09-2023 10:41-0400 Heart rate 79 /min Pio Nicole MD Work Phone: [facility] 06-09-2023 10:41-0400 Respiratory rate 30 /min Pio Nicole MD Work Phone: [facility] 06-09-2023 10:41-0400 SaO2% (BldA) [Mass fraction] 93 % Pio Nicole MD Work Phone: [facility] 06-09-2023 10:41-0400 Systolic blood pressure 124 mm[Hg] Pio Nicole MD Work Phone: [facility] 06-06-2023 10:25-0400 Body height 185.4 cm Mathieu Virgen MD Work Phone: [facility] 06-06-2023 10:25-0400 Body weight 134.17 kg Mathieu Virgen MD Work Phone: [facility] 06-06-2023 10:25-0400 Diastolic blood pressure 64 mm[Hg] Mathieu Virgen MD Work Phone: [facility] 06-06-2023 10:25-0400 Heart rate 77 /min Mathieu Virgen MD Work Phone: [facility] 06-06-2023 10:25-0400 SaO2% (BldA) [Mass fraction] 97 % Mathieu Virgen MD Work Phone: [facility] 06-06-2023 10:25-0400 Systolic blood pressure 130 mm[Hg] Mathieu Virgen MD Work Phone: [facility] 05-18-2023 15:03-0400 Body height 185.4 cm NA Travis PA-C Work Phone: [facility] 05-18-2023 15:03-0400 Body temperature 97.11 [degF] NA Travis PA-C Work Phone: [facility] 05-18-2023 15:03-0400 Body weight 131 kg NA Travis PA-C Work Phone: [facility] 05-18-2023 15:03-0400 Diastolic blood pressure 64 mm[Hg] NA Travis PA-C Work Phone: [facility] 05-18-2023 15:03-0400 Heart rate 72 /min NA Travis PA-C Work Phone: [facility] 05-18-2023 15:03-0400 SaO2% (BldA) [Mass fraction] 96 % NA Travis PA-C Work Phone: [facility] 05-18-2023 15:03-0400 Systolic blood pressure 104 mm[Hg] NA Travis PA-C Work Phone: [facility] 05-01-2023 14:23-0400 Body temperature 97.9 [degF] NA Travis PA-C Work Phone: [facility] 05-01-2023 14:23-0400 Diastolic blood pressure 70 mm[Hg] NA Travis PA-C Work Phone: [facility] 05-01-2023 14:23-0400 Heart rate 80 /min NA Travis PA-C Work Phone: [facility] 05-01-2023 14:23-0400 Respiratory rate 20 /min NA Travis PA-C Work Phone: [facility] 05-01-2023 14:23-0400 SaO2% (BldA) [Mass fraction] 96 % NA Travis PA-C Work Phone: [facility] 05-01-2023 14:23-0400 Systolic blood pressure 118 mm[Hg] NA Travis PA-C Work Phone: [facility] 04-30-2023 14:11-0400 Body weight 132.9 kg NA Travis PA-C Work Phone: [facility] 04-30-2023 14:11-0400 Diastolic blood pressure 68 mm[Hg] NA Travis PA-C Work Phone: [facility] 04-30-2023 14:11-0400 Heart rate 75 /min NA Travis PA-C Work Phone: [facility] 04-30-2023 14:11-0400 Respiratory rate 18 /min NA Travis PA-C Work Phone: [facility] 04-30-2023 14:11-0400 SaO2% (BldA) [Mass fraction] 95 % NA Travis PA-C Work Phone: [facility] 04-30-2023 14:11-0400 Systolic blood pressure 114 mm[Hg] NA Travis PA-C Work Phone: [facility] 03-31-2023 04:41-0400 Diastolic blood pressure 68 mm[Hg] Dr. Mathieu Virgen Work Phone: [facility] 03-31-2023 04:41-0400 Heart rate 65 /min Dr. Mathieu Virgen Work Phone: [facility] 03-31-2023 04:41-0400 Respiratory rate 16 /min Dr. Mathieu Virgen Work Phone: [facility] 03-31-2023 04:41-0400 SaO2% (BldA) [Mass fraction] 98 % Dr. Mathieu Virgen Work Phone: [facility] 03-31-2023 04:41-0400 Systolic blood pressure 138 mm[Hg] Dr. Mathieu Virgen Work Phone: [facility] 03-31-2023 00:17-0400 Body height 184.[address] Mathieu Virgen Work Phone: [facility] 03-31-2023 00:17-0400 Body temperature 97.8 [degF] Dr. Mathieu Virgen Work Phone: [facility] 03-05-2023 15:22-0400 Body temperature 97.3 [degF] Andrew Guallpa APRN.RN ORTHOPAEDIC Work Phone: [facility] 03-05-2023 15:22-0400 Body weight 138.26 kg Andrew Guallpa APRN.RN ORTHOPAEDIC Work Phone: [facility] 03-05-2023 15:22-0400 Diastolic blood pressure 62 mm[Hg] Andrew Pendlebury TOLL LINE INSPECTOR.RN ORTHOPAEDIC Work Phone: [facility] 03-05-2023 15:22-0400 Heart rate 82 /min Andrew Pendlebury TOLL LINE INSPECTOR.RN ORTHOPAEDIC Work Phone: [facility] 03-05-2023 15:22-0400 Respiratory rate 20 /min [facility] INSPECT[facility].RN ORTHOPAEDIC Work Phone: [facility] 03-05-2023 15:22-0400 SaO2% (BldA) [Mass fraction] 94 % [facility] TOLL LINE INSPECTOR.RN ORTHOPAEDIC Work Phone: [facility] 03-05-2023 15:22-0400 Systolic blood pressure 120 mm[Hg] Andrew Pendlebury TOLL LINE INSPECTOR.RN ORTHOPAEDIC Work Phone: [facility] 03-02-2023 16:23-0400 Body weight 137.44 kg Mathieu Virgen MD Work Phone: [facility] 03-02-2023 16:23-0400 Diastolic blood pressure 60 mm[Hg] Mathieu Virgen MD Work Phone: [facility] 03-02-2023 16:23-0400 Heart rate 76 /min Mathieu Virgen MD Work Phone: [facility] 03-02-2023 16:23-0400 SaO2% (BldA) [Mass fraction] 93 % Mathieu Virgen MD Work Phone: [facility] 03-02-2023 16:23-0400 Systolic blood pressure 112 mm[Hg] Mathieu Virgen MD Work Phone: [facility] 03-01-2023 22:57-0400 Diastolic blood pressure 67 mm[Hg] Dr. Mathieu Virgen Work Phone: [facility] 03-01-2023 22:57-0400 Heart rate 73 /min Dr. Mathieu Virgen Work Phone: [facility] 03-01-2023 22:57-0400 Respiratory rate 16 /min Dr. Mathieu Virgen Work Phone: [facility] 03-01-2023 22:57-0400 SaO2% (BldA) [Mass fraction] 95 % Dr. Mathieu Virgen Work Phone: 8(534)537-030817 [place] [address] 03-01-2023 22:57-0400 Systolic blood pressure 132 mm[Hg] Dr. Mathieu Virgen Work Phone: 2(329)562-514717 [place] [address] 03-01-2023 20:28-0400 Body height 185.[address] Mathieu Virgen Work Phone: 4(001)574-325817 [place] [address] 03-01-2023 20:28-0400 Body mass index (BMI) [Ratio] 40 kg/m2 Dr. Mathieu Virgen Work Phone: 2(327)883-010017 [place] [address] 03-01-2023 20:28-0400 Body temperature 97.8 [degF] Dr. Mathieu Virgen Work Phone: 7(201)227-803117 [place] [address] 03-01-2023 20:28-0400 Body weight 137.[address] Mathieu Virgen Work Phone: 5(009)750-009317 [place] [address] 03-01-2023 07:54-0400 Body mass index (BMI) [Ratio] 39.2 kg/m2 Dr. Mathieu Virgen Work Phone: 0(122)410-588517 [place] [address] 03-01-2023 07:54-0400 Body temperature 97.7 [degF] Dr. Mathieu Virgen Work Phone: 4(203)075-297817 [place] [address] 03-01-2023 07:54-0400 Body weight 134.[address] Mathieu Virgen Work Phone: 7(945)474-624636 [place] [address] 03-01-2023 07:54-0400 Diastolic blood pressure 59 mm[Hg] Dr. Mathieu Virgen Work Phone: 4(983)142-132517 [place] [address] 03-01-2023 07:54-0400 Heart rate 84 /min Dr. Mathieu Virgen Work Phone: 6(371)910-938036 [place] [address] 03-01-2023 07:54-0400 Respiratory rate 20 /min Dr. Mathieu Virgen Work Phone: 8(697)670-126036 [place] [address] 03-01-2023 07:54-0400 SaO2% (BldA) [Mass fraction] 91 % Dr. Mathieu Virgen Work Phone: 7(149)169-928536 [place] [address] 03-01-2023 07:54-0400 Systolic blood pressure 131 mm[Hg] Dr. Mathieu Virgen Work Phone: 5(455)014-387717 [place] [address] 02-25-2023 03:07-0400 Diastolic blood pressure 75 mm[Hg] Dr. Mathieu Virgen Work Phone: 6(240)714-056217 [place] [address] 02-25-2023 03:07-0400 Heart rate 66 /min Dr. Mathieu Virgen Work Phone: 1(562)643-696717 [place] [address] 02-25-2023 03:07-0400 Respiratory rate 22 /min Dr. Mathieu Virgen Work Phone: 0(210)042-221317 [place] [address] 02-25-2023 03:07-0400 SaO2% (BldA) [Mass fraction] 96 % Dr. Mathieu Virgen Work Phone: 7(826)916-953617 [place] [address] 02-25-2023 03:07-0400 Systolic blood pressure 153 mm[Hg] Dr. Mathieu Virgen Work Phone: 9(575)431-168217 [place] [address] 02-24-2023 21:56-0400 Body mass index (BMI) [Ratio] 40.8 kg/m2 Dr. Mathieu Virgen Work Phone: 0(583)072-023817 [place] [address] 02-24-2023 21:56-0400 Body temperature 96.6 [degF] Dr. Mathieu Virgen Work Phone: 6(802)111-458117 [place] [address] 02-24-2023 21:56-0400 Body weight 140.[address] Mathieu Virgen Work Phone: 1(684)139-376036 [place] [address] 02-16-2023 14:38-0400 Diastolic blood pressure 80 mm[Hg] Denisha Shepard TOLL LINE INSPECTOR.RN ORTHOPAEDIC Work Phone: [facility] 02-16-2023 14:38-0400 Heart rate 82 /min Dneisha Shepard TOLL LINE INSPECTOR.RN ORTHOPAEDIC Work Phone: [facility] 02-16-2023 14:38-0400 Respiratory rate 16 /min Denisha Shepard TOLL LINE INSPECTOR.RN ORTHOPAEDIC Work Phone: [facility] 02-16-2023 14:38-0400 SaO2% (BldA) [Mass fraction] 94 % Denisha Shepard TOLL LINE INSPECTOR.RN ORTHOPAEDIC Work Phone: [facility] 02-16-2023 14:38-0400 Systolic blood pressure 142 mm[Hg] Denisha Shepard TOLL LINE INSPECTOR.RN ORTHOPAEDIC Work Phone: [facility] 01-19-2023 14:18-0400 Body weight 137.44 kg Mathieu Virgen MD Work Phone: [facility] 01-19-2023 14:18-0400 Diastolic blood pressure 72 mm[Hg] Mathieu Virgen MD Work Phone: [facility] 01-19-2023 14:18-0400 Heart rate 86 /min Mathieu Virgen MD Work Phone: [facility] 01-19-2023 14:18-0400 Respiratory rate 16 /min Mathieu Virgen MD Work Phone: [facility] 01-19-2023 14:18-0400 Systolic blood pressure 134 mm[Hg] Mathieu Virgen MD Work Phone: [facility] 11-29-2022 09:33-0400 Body height 185.4 cm Mathieu Virgen MD Work Phone: [facility] 11-29-2022 09:33-0400 Body weight 137.89 kg Mathieu Virgen MD Work Phone: [facility] 11-29-2022 09:33-0400 Diastolic blood pressure 68 mm[Hg] Mathieu Virgen MD Work Phone: [facility] 11-29-2022 09:33-0400 Heart rate 85 /min Mathieu Virgen MD Work Phone: [facility] 11-29-2022 09:33-0400 SaO2% (BldA) [Mass fraction] 96 % Mathieu Virgen MD Work Phone: [facility] 11-29-2022 09:33-0400 Systolic blood pressure 136 mm[Hg] Mathieu Virgen MD Work Phone: [facility] 11-21-2022 14:44-0500 Body temperature 97.7 [degF] Dr. Mathieu Virgen Work Phone: [facility] 11-21-2022 14:44-0500 Diastolic blood pressure 74 mm[Hg] Dr. Mathieu Virgen Work Phone: 3(519)554-528436 [place] [address] 11-21-2022 14:44-0500 Heart rate 78 /min Dr. Mathieu Virgen Work Phone: 6(564)899-380817 [place] [address] 11-21-2022 14:44-0500 Respiratory rate 16 /min Dr. Mathieu Virgen Work Phone: 7(765)933-692436 [place] [address] 11-21-2022 14:44-0500 SaO2% (BldA) [Mass fraction] 94 % Dr. Mathieu Virgen Work Phone: 9(716)684-793036 [place] [address] 11-21-2022 14:44-0500 Systolic blood pressure 145 mm[Hg] Dr. Mathieu Virgen Work Phone: 8(439)101-572436 [place] [address] 11-21-2022 08:28-0500 Body height 185.[address] Mathieu Virgen Work Phone: 4(087)439-237017 [place] [address] 11-21-2022 08:28-0500 Body mass index (BMI) [Ratio] 39.9 kg/m2 Dr. Mathieu Virgen Work Phone: 8(635)053-588217 [place] [address] 11-21-2022 08:28-0500 Body weight 137.[address] Mathieu Virgen Work Phone: 5(648)661-490917 [place] [address] 11-21-2022 01:50-0500 Diastolic blood pressure 77 mm[Hg] Dr. Mathieu Virgen Work Phone: 3(384)181-019836 [place] [address] 11-21-2022 01:50-0500 Heart rate 89 /min Dr. Mathieu Virgen Work Phone: 7(867)664-710036 [place] [address] 11-21-2022 01:50-0500 Respiratory rate 15 /min Dr. Mathieu Virgen Work Phone: 0(413)086-142036 [place] [address] 11-21-2022 01:50-0500 SaO2% (BldA) [Mass fraction] 99 % Dr. Mathieu Virgen Work Phone: 4(865)993-561517 [place] [address] 11-21-2022 01:50-0500 Systolic blood pressure 150 mm[Hg] Dr. Mathieu Virgen Work Phone: 8(755)709-094117 [place] [address] 11-20-2022 23:59-0500 Body mass index (BMI) [Ratio] 40.8 kg/m2 Dr. Mathieu Virgen Work Phone: 1(881)844-661017 [place] [address] 11-20-2022 23:59-0500 Body temperature 97.9 [degF] Dr. Mathieu Virgen Work Phone: 1(028)489-231917 [place] [address] 11-20-2022 23:59-0500 Body weight 140.[address] Mathieu Virgen Work Phone: 8(217)171-169417 [place] [address] 10-26-2022 11:24-0500 Body weight 138.[address] Mathieu Virgen Work Phone: 5(158)111-683217 [place] [address] 10-26-2022 11:24-0500 Diastolic blood pressure 66 mm[Hg] Dr. Mathieu Virgen Work Phone: 5(185)557-111917 [place] [address] 10-26-2022 11:24-0500 Heart rate 75 /min Dr. Mathieu Virgen Work Phone: 8(227)284-582817 [place] [address] 10-26-2022 11:24-0500 Respiratory rate 24 /min Dr. Mathieu Virgen Work Phone: 5(807)451-026717 [place] [address] 10-26-2022 11:24-0500 Systolic blood pressure 104 mm[Hg] Dr. Mathieu Virgen Work Phone: 3(865)332-671417 [place] [address] 08-08-2022 08:49-0500 Body height 185.[address] Mathieu Virgen Work Phone: 3(213)364-182417 [place] [address] Work Phone: 08-08-2022 08:49-0500 Body mass index (BMI) [Ratio] 39.5 kg/m2 Dr. Mathieu Virgen Work Phone: 2(174)201-211796 [address] 08-08-2022 08:49-0500 Body temperature 97.5 [degF] Dr. Mathieu Virgen Work Phone: [facility] 08-08-2022 08:49-0500 Body weight 136.[address] Mathieu Virgen Work Phone: [facility] 08-08-2022 08:49-0500 Diastolic blood pressure 65 mm[Hg] Dr. Mathieu Virgen Work Phone: [facility] 08-08-2022 08:49-0500 Heart rate 86 /min Dr. Mathieu Virgen Work Phone: [facility] 08-08-2022 08:49-0500 Respiratory rate 14 /min Dr. Mathieu Virgen Work Phone: [facility] 08-08-2022 08:49-0500 SaO2% (BldA) [Mass fraction] 96 % Dr. Mathieu Virgen Work Phone: [facility] 08-08-2022 08:49-0500 Systolic blood pressure 160 mm[Hg] Dr. Mathieu Virgen Work Phone: [facility] 05-31-2022 10:38-0400 Body height 185.4 cm Mathieu Virgen MD Work Phone: [facility] 05-31-2022 10:38-0400 Body weight 136.08 kg Mathieu Virgen MD Work Phone: [facility] 05-31-2022 10:38-0400 Diastolic blood pressure 68 mm[Hg] Mathieu Virgen MD Work Phone: [facility] 05-31-2022 10:38-0400 Heart rate 87 /min Mathieu Virgen MD Work Phone: [facility] 05-31-2022 10:38-0400 SaO2% (BldA) [Mass fraction] 94 % Mathieu Virgen MD Work Phone: [facility] 05-31-2022 10:38-0400 Systolic blood pressure 136 mm[Hg] Mathieu Virgen MD Work Phone: [facility] 05-04-2022 08:51-0400 Body mass index (BMI) [Ratio] 39.8 kg/m2 Dr. Mathieu Virgen Work Phone: [facility] Work Phone: 05-04-2022 08:51-0400 Body weight 136.[address] Mathieu Virgen Work Phone: [facility] Work Phone: 05-04-2022 08:51-0400 Diastolic blood pressure 69 mm[Hg] Dr. Mathieu Virgen Work Phone: [facility] Work Phone: 05-04-2022 08:51-0400 Heart rate 80 /min Dr. Mathieu Virgen Work Phone: [facility] Work Phone: 05-04-2022 08:51-0400 Respiratory rate 22 /min Dr. Mathieu Virgen Work Phone: [facility] Work Phone: 05-04-2022 08:51-0400 Systolic blood pressure 112 mm[Hg] Dr. Mathieu Virgen Work Phone: [facility] Work Phone: 04-08-2022 19:02-0400 Diastolic blood pressure 54 mm[Hg] Dr. Mathieu Virgen Work Phone: [facility] Work Phone: 04-08-2022 19:02-0400 Heart rate 78 /min Dr. Mathieu Virgen Work Phone: [facility] Work Phone: 04-08-2022 19:02-0400 Systolic blood pressure 137 mm[Hg] Dr. Mathieu Virgen Work Phone: [facility] Work Phone: 04-08-2022 18:04-0400 Respiratory rate 16 /min Dr. Mathieu Virgen Work Phone: [facility] Work Phone: 04-08-2022 18:04-0400 SaO2% (BldA) [Mass fraction] 96 % Dr. Mathieu Virgen Work Phone: [facility] Work Phone: 04-08-2022 15:02-0400 Body height 185.[address] Mathieu Virgen Work Phone: [facility] Work Phone: 04-08-2022 15:02-0400 Body mass index (BMI) [Ratio] 39.8 kg/m2 Dr. Mathieu Virgen Work Phone: [facility] Work Phone: 04-08-2022 15:02-0400 Body temperature 97.8 [degF] Dr. Mathieu Virgen Work Phone: [facility] Work Phone: 04-08-2022 15:02-0400 Body weight [address] Mathieu Virgen Work Phone: [facility] Work Phone: 04-08-2022 14:43-0400 Body temperature 97.5 [degF] Andrew Guallpa TOLL LINE INSPECTOR.RN ORTHOPAEDIC Work Phone: [facility] 04-08-2022 14:43-0400 Body weight 137.26 kg Andrew Guallpa TOLL LINE INSPECTOR.RN ORTHOPAEDIC Work Phone: [facility] 04-08-2022 14:43-0400 Diastolic blood pressure 60 mm[Hg] Andrew Guallpa TOLL LINE INSPECTOR.RN ORTHOPAEDIC Work Phone: [facility] 04-08-2022 14:43-0400 Heart rate 80 /min Andrew Guallpa TOLL LINE INSPECTOR.RN ORTHOPAEDIC Work Phone: [facility] 04-08-2022 14:43-0400 Respiratory rate 21 /min Andrew Guallpa TOLL LINE INSPECTOR.RN ORTHOPAEDIC Work Phone: [facility] 04-08-2022 14:43-0400 SaO2% (BldA) [Mass fraction] 97 % Andrew Guallpa TOLL LINE INSPECTOR.RN ORTHOPAEDIC Work Phone: [facility] 04-08-2022 14:43-0400 Systolic blood pressure 136 mm[Hg] Andrew Ramu GRANTRN ORTHOPAEDIC Work Phone: [facility] 03-03-2022 10:26-0400 Body weight 136.53 kg Mathieu Virgen MD Work Phone: [facility] 03-03-2022 10:26-0400 Diastolic blood pressure 74 mm[Hg] Mathieu Virgen MD Work Phone: [facility] 03-03-2022 10:26-0400 Heart rate 78 /min Mathieu Virgen MD Work Phone: [facility] 03-03-2022 10:26-0400 SaO2% (BldA) [Mass fraction] 95 % Mathieu Virgen MD Work Phone: [facility] 03-03-2022 10:26-0400 Systolic blood pressure 124 mm[Hg] Mathieu Virgen MD Work Phone: [facility] 03-02-2022 10:33-0400 Body mass index (BMI) [Ratio] 39.2 kg/m2 Dr. Mathieu Virgen Work Phone: [facility] Work Phone: 03-02-2022 10:33-0400 Body temperature 97.1 [degF] Dr. Mathieu Virgen Work Phone: [facility] Work Phone: 03-02-2022 10:33-0400 Body weight 134.[address] Mathieu Virgen Work Phone: [facility] Work Phone: 03-02-2022 10:33-0400 Diastolic blood pressure 52 mm[Hg] Dr. Mathieu Virgen Work Phone: [facility] Work Phone: 03-02-2022 10:33-0400 Heart rate 83 /min Dr. Mathieu Virgen Work Phone: [facility] Work Phone: 03-02-2022 10:33-0400 Respiratory rate 17 /min Dr. Mathieu Virgen Work Phone: [facility] Work Phone: 03-02-2022 10:33-0400 SaO2% (BldA) [Mass fraction] 93 % Dr. Mathieu Virgen Work Phone: [facility] Work Phone: 03-02-2022 10:33-0400 Systolic blood pressure 100 mm[Hg] Dr. Mathieu Virgen Work Phone: [facility] Work Phone: 01-30-2022 11:26-0400 Body mass index (BMI) [Ratio] 40.7 kg/m2 Dr. Mathieu Virgen Work Phone: [facility] Work Phone: 01-30-2022 11:26-0400 Body temperature 97.9 [degF] Dr. Mathieu Virgen Work Phone: [facility] Work Phone: 01-30-2022 11:26-0400 Body weight 140.[address] Mathieu Virgen Work Phone: [facility] Work Phone: 01-30-2022 11:26-0400 Diastolic blood pressure 78 mm[Hg] Dr. Mathieu Virgen Work Phone: [facility] Work Phone: 01-30-2022 11:26-0400 Heart rate 83 /min Dr. aMthieu Virgen Work Phone: [facility] Work Phone: 01-30-2022 11:26-0400 Respiratory rate 22 /min Dr. Mathieu Virgen Work Phone: [facility] Work Phone: 01-30-2022 11:26-0400 SaO2% (BldA) [Mass fraction] 93 % Dr. Mathieu Virgen Work Phone: [facility] Work Phone: 01-30-2022 11:26-0400 Systolic blood pressure 126 mm[Hg] Dr. Mathieu Virgen Work Phone: [facility] Work Phone: 01-30-2022 11:26-0400 Body height 185.[address] Mathieu Virgen Work Phone: [facility] Work Phone: 01-30-2022 11:26-0400 Body mass index (BMI) [Ratio] 40.7 kg/m2 Dr. Mathieu Virgen Work Phone: [facility] Work Phone: 01-30-2022 11:26-0400 Body temperature 97.9 [degF] Dr. Mathieu Virgen Work Phone: [facility] Work Phone: 01-30-2022 11:26-0400 Body weight 140.[address] Mathieu Virgen Work Phone: [facility] Work Phone: 01-30-2022 11:26-0400 Diastolic blood pressure 78 mm[Hg] Dr. Mathieu Virgen Work Phone: [facility] Work Phone: 01-30-2022 11:26-0400 Heart rate 83 /min Dr. Mathieu Virgen Work Phone: [facility] Work Phone: 01-30-2022 11:26-0400 Respiratory rate 22 /min Dr. Mathieu Virgen Work Phone: [facility] Work Phone: 01-30-2022 11:26-0400 SaO2% (BldA) [Mass fraction] 93 % Dr. Mathieu Virgen Work Phone: [facility] Work Phone: 01-30-2022 11:26-0400 Systolic blood pressure 126 mm[Hg] Dr. Mathieu Virgen Work Phone: [facility] Work Phone: 01-27-2022 14:46-0400 Body temperature 97.9 [degF] Saad Park TOLL LINE INSPECTOR.RN ORTHOPAEDIC Work Phone: [facility] 01-27-2022 14:46-0400 Body weight 136.62 kg Saad Park TOLL LINE INSPECTOR.RN ORTHOPAEDIC Work Phone: [facility] 01-27-2022 14:46-0400 Diastolic blood pressure 74 mm[Hg] Saad Park TOLL LINE INSPECTOR.RN ORTHOPAEDIC Work Phone: [facility] 01-27-2022 14:46-0400 Heart rate 85 /min Saad Park TOLL LINE INSPECTOR.RN ORTHOPAEDIC Work Phone: [facility] 01-27-2022 14:46-0400 Respiratory rate 18 /min Saad Park TOLL LINE INSPECTOR.RN ORTHOPAEDIC Work Phone: [facility] 01-27-2022 14:46-0400 SaO2% (BldA) [Mass fraction] 95 % Saad Park TOLL LINE INSPECTOR.RN ORTHOPAEDIC Work Phone: [facility] 01-27-2022 14:46-0400 Systolic blood pressure 128 mm[Hg] Saad Park TOLL LINE INSPECTOR.RN ORTHOPAEDIC Work Phone: [facility] 01-12-2022 14:41-0400 Diastolic blood pressure 75 mm[Hg] [facility] Work Phone: [facility] 01-12-2022 14:41-0400 Heart rate 74 /min [facility] Work Phone: [facility] 01-12-2022 14:41-0400 Systolic blood pressure 132 mm[Hg] [facility] Work Phone: [facility] 11-30-2021 11:14-0400 Body mass index (BMI) [Ratio] 39.4 kg/m2 Dr. Mathieu Virgen Work Phone: [facility] Work Phone: 11-30-2021 11:14-0400 Body temperature 96.9 [degF] Dr. Mathieu Virgen Work Phone: [facility] Work Phone: 11-30-2021 11:14-0400 Body weight 135.[address] Mathieu Virgen Work Phone: [facility] Work Phone: 11-30-2021 11:14-0400 Diastolic blood pressure 76 mm[Hg] Dr. Mathieu Virgen Work Phone: [facility] Work Phone: 11-30-2021 11:14-0400 Heart rate 78 /min Dr. Mathieu Virgen Work Phone: [facility] Work Phone: 11-30-2021 11:14-0400 Respiratory rate 18 /min Dr. Mathieu Virgen Work Phone: [facility] Work Phone: 11-30-2021 11:14-0400 SaO2% (BldA) [Mass fraction] 92 % Dr. Mathieu Virgen Work Phone: [facility] Work Phone: 11-30-2021 11:14-0400 Systolic blood pressure 132 mm[Hg] Dr. Mathieu Virgen Work Phone: [facility] Work Phone: 11-10-2021 12:18-0500 Body weight 135.[address] Mathieu Virgen Work Phone: [facility] Work Phone: 11-10-2021 12:18-0500 Heart rate 81 /min Dr. Mathieu Virgen Work Phone: [facility] Work Phone: 11-10-2021 12:18-0500 SaO2% (BldA) [Mass fraction] 94 % Dr. Mathieu Virgen Work Phone: [facility] Work Phone: 10-26-2021 10:42-0500 Body mass index (BMI) [Ratio] 40.4 kg/m2 Dr. Mathieu Virgen Work Phone: [facility] Work Phone: 10-26-2021 10:42-0500 Body temperature 97.5 [degF] Dr. Mathieu Virgen Work Phone: [facility] Work Phone: 10-26-2021 10:42-0500 Body weight 135.[address] Mathieu Virgen Work Phone: [facility] Work Phone: 10-26-2021 10:42-0500 Diastolic blood pressure 79 mm[Hg] Dr. Mathieu Virgen Work Phone: [facility] Work Phone: 10-26-2021 10:42-0500 Heart rate 79 /min Dr. Mathieu Virgen Work Phone: [facility] Work Phone: 10-26-2021 10:42-0500 Respiratory rate 16 /min Dr. Mathieu Virgen Work Phone: [facility] Work Phone: 10-26-2021 10:42-0500 SaO2% (BldA) [Mass fraction] 94 % Dr. Mathieu Virgen Work Phone: [facility] Work Phone: 10-26-2021 10:42-0500 Systolic blood pressure 118 mm[Hg] Dr. Mathieu Virgen Work Phone: [facility] Work Phone: 10-24-2021 10:15-0500 Body mass index (BMI) [Ratio] 40.5 kg/m2 Dr. Matheiu Virgen Work Phone: [facility] Work Phone: 10-24-2021 10:15-0500 Body weight 135.[address] Mathieu Virgen Work Phone: [facility] Work Phone: 10-24-2021 10:15-0500 Diastolic blood pressure 65 mm[Hg] Dr. Mathieu Viregn Work Phone: [facility] Work Phone: 10-24-2021 10:15-0500 Heart rate 76 /min Dr. Mathieu Virgen Work Phone: [facility] Work Phone: 10-24-2021 10:15-0500 Respiratory rate 24 /min Dr. Mathieu Virgen Work Phone: [facility] Work Phone: 10-24-2021 10:15-0500 SaO2% (BldA) [Mass fraction] 95 % Dr. Mathieu Virgen Work Phone: [facility] Work Phone: 10-24-2021 10:15-0500 Systolic blood pressure 123 mm[Hg] Dr. Mathieu Virgen Work Phone: [facility] Work Phone: Encounters Encounter Date Encounter Type Care Provider Facility Start: 04-08-2025 End: 04-08-[address] Mathieu Virgen MD Work Phone: -Laboratory Start: 04-08-2025 End: 04-08-2025 Patient encounter procedure WOOD POLE TREATER Megan aMcario -Laboratory Work Phone: Start: 04-08-2025 End: 04-08-2025 Patient encounter procedure WOOD POLE TREATER Megan Macario -[facility] Work Phone: Start: 04-08-2025 End: 04-08-[address] Mathieu Virgen MD Work Phone: -[facility] Start: 04-08-2025 End: 04-08-2025 ambulatory Mathieu Virgen Facility:[facility] Start: 04-02-2025 End: 04-03-2025 Telephone encounter Mathieu Virgen MD Work Phone: [facility] Comment on above: Patient Assistance ( [employer] form for favian) Start: 04-01-2025 End: 04-01-[address] Mathieu Virgen MD Work Phone: -Cat Scan [facility] Start: 04-01-2025 End: 04-01-2025 Patient encounter procedure WOOD POLE TREATER Megan Macario -Cat Scan [facility] Work Phone: Start: 04-01-2025 End: 04-01-2025 ambulatory [facility] Facility:[facility] Start: 03-27-2025 End: 03-27-2025 ambulatory Mathieu Virgen MD Work Phone: [facility] Comment on above: New Pharmacy Refill Request; refi ll status Start: 03-02-2025 ambulatory [facility] Facility:[facility] Start: 03-02-2025 Non-patient / Non-visit Dr. Marvin Morse own DO -[facility] Start: 02-26-2025 End: 02-26-[address] Mathieu Virgen MD Work Phone: [facility] Work Phone: Start: 02-26-2025 End: 02-26-2025 Patient encounter procedure WOOD POLE TREATER Megan Macario -Pulmonary Services/Neurology Work Phone: Start: 02-26-2025 End: 02-26-2025 ambulatory [facility] Facility:[facility] Start: 02-11-2025 End: 02-11-2025 Telephone encounter Mathieu Virgen MD Work Phone: [facility] Comment on above: FYI-No Action Needed (Diabetes note sent to DME) Start: 01-30-2025 End: 02-02-2025 Follow-up encounter Jamal Mace Work Phone: Podiatry Start: 01-30-2025 Non-patient / Non-visit Dr. Marvin Morse own DO -[facility] Start: 01-30-2025 End: 01-30-[address] 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) Start: 01-26-2025 End: 01-26-2025 ambulatory [facility] Facility:[facility] Start: 01-26-2025 End: 01-26-2025 Patient encounter procedure [facility] Work Phone: Start: 01-26-2025 End: 01-26-2025 ambulatory [facility] Facility:[facility] Start: 01-23-2025 End: 01-23-2025 ambulatory Mathieu Virgen MD Work Phone: [facility] Comment on above: labs Start: 01-23-2025 End: 01-23-2025 E-mail encounter from caregiver Mathieu Virgen MD Work Phone: [facility] [place] Start: 01-22-2025 End: 01-22-2025 Subsequent hospital visit by physician Dominick [facility] Rickey Work Phone: Radiology Comment on above: Closed fracture of f oot, unspecified laterality, initial encounter [S92.909A] Start: 01-22-2025 End: 01-22-2025 Patient encounter procedure Jamal Mace Work Phone: Podiatry Comment on above: Closed fracture of f oot, unspecified laterality, initial encounter Start: 01-22-2025 End: 01-22-2025 ambulatory JAMAL MACE Facility:[facility] Start: 01-22-2025 End: 01-22-2025 Telephone encounter Mathieu Virgen MD Work Phone: [facility] Start: 01-21-2025 End: 01-21-[address] Mathieu Virgen MD Work Phone: [facility] Work Phone: Start: 01-21-2025 End: 01-21-[address] Mathieu Virgen MD -Laboratory Work Phone: Start: 01-21-2025 End: 01-21-2025 Patient encounter procedure WOOD POLE TREATER Megan Macario [facility] Work Phone: Start: 01-21-2025 End: 01-21-2025 ambulatory [facility] Facility:[facility] Start: 01-21-2025 End: 01-21-2025 ambulatory [facility] Facility:[facility] Start: 01-19-2025 End: 01-20-2025 Emergency department patient visit Dr. Abraham Green -Emergency Department Work Phone: Start: 01-13-2025 End: 01-13-2025 Refill Mathieu Virgen MD Work Phone: [facility] Comment on above: Refill Request Start: 01-12-2025 End: 01-12-2025 Subsequent hospital visit by physician Dominick [facility] Work Phone: Radiology Comment on above: Contusion of left fo ot, subsequent encounter [S90.32XD] Start: 01-12-2025 End: 01-12-2025 Patient encounter procedure Mathieu Virgen MD Work Phone: [facility] Comment on above: Contusion of left fo ot, subsequent encounter (Primary Dx); Foot pain, left Start: 01-12-2025 End: 01-12-2025 ambulatory MATHIEU VIRGEN Facility:[facility] Start: 01-12-2025 End: 01-16-2025 Telephone encounter Mathieu Virgen MD Work Phone: [facility] Comment on above: Results Start: 12-11-2024 End: 12-11-[address] Devante Ponce MD -[facility] Work Phone: Start: 12-11-2024 End: 12-11-2024 ambulatory Devantepooja Ponce [facility] Start: 12-03-2024 End: 12-04-2024 Telephone encounter Mathieu Virgen MD Work Phone: [facility] Comment on above: Insurance Authorizat ion Start: 12-02-2024 End: 12-02-2024 ambulatory MATHIEU VIRGEN Facility:[facility] Start: 12-02-2024 End: 12-02-2024 Patient encounter procedure Mathieu Virgen MD Work Phone: [facility] Comment on above: Acute diastolic CHF (congestive heart failure) (HCC) (Primary Dx); Psoriatic arthritis (HCC); Schizophrenia, chronic condition (HCC); 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, macular edema presence unspecified, unspecified laterality (HCC); Paroxysmal atrial fibrillation (HCC); Mixed hyperlipidemia; Sleep apnea, unspecified type; Restrictive lung disease; 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); History of bladder cancer; Chronic anticoagulation; Malignant neoplasm of urinary bladder, unspecified site (HCC); 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 Mathieu Virgen MD Work Phone: [facility] Work Phone: Start: 11-28-2024 End: 11-28-[address] Mathieu Virgen MD -Laboratory Work Phone: Start: 11-27-2024 End: 11-27-2024 Telephone encounter Mathieu Virgen MD Work Phone: [facility] Comment on above: Orders Start: 11-27-2024 End: 11-28-[address] Mathieu Virgen MD Work Phone: [facility] Work Phone: Start: 11-27-2024 End: 11-27-[address] Mathieu Virgen MD -Laboratory Work Phone: Start: 11-26-2024 End: 11-27-2024 ambulatory Mathieu Virgen MD Work Phone: [facility] [place] Start: 11-26-2024 End: 11-27-2024 Patient encounter procedure Mathieu Virgen MD Work Phone: [facility] [place] Comment on above: Clinic Code Start: 11-26-2024 End: 11-26-2024 Telephone encounter Mathieu Virgen MD Work Phone: [facility] Comment on above: Medication Problem Start: 11-24-2024 End: 11-24-2024 Telephone encounter Mathieu Virgen MD Work Phone: Family [facility] Comment on above: requesting medicatio n that is Start: 11-13-2024 End: 11-13-2024 ambulatory Mathieu Virgen MD Work Phone: [facility] Comment on above: Lab Work Start: 11-12-2024 End: 11-24-2024 Telephone encounter Mathieu Virgen MD Work Phone: [facility] Comment on above: Medication Question Start: 11-10-2024 End: 11-10-2024 Patient encounter procedure WOOD POLE TREATER Megan Macario -Sleep Lab Work Phone: Start: 11-10-2024 End: 11-10-2024 ambulatory Megan Macario Facility:[facility] Start: 11-03-2024 End: 11-03-2024 Emergency department patient visit Dr. Qasim Senior DO -Emergency Department Work Phone: Start: 10-31-2024 End: 10-31-2024 ambulatory SUKH HALL Facility:[facility] Start: 10-31-2024 End: 10-31-2024 Patient encounter procedure Sukh Hall TOLL LINE INSPECTOR.RN ORTHOPAEDIC Work Phone: [facility] Comment on above: Essential hypertensi on (Primary Dx); Paroxysmal atrial fibrillation (HCC); Dizziness; Systolic congestive heart failure, unspecified HF chronicity (HCC) Start: 10-31-2024 End: 10-31-2024 Telephone encounter Mathieu Virgen MD Work Phone: [facility] Comment on above: Appointment Start: 10-23-2024 End: 10-23-2024 Patient encounter procedure ARSALAN Macario -Sleep Lab Work Phone: Start: 10-23-2024 End: 10-23-2024 ambulatory Megan Macario Facility:[facility] Start: 10-16-2024 End: 10-16-2024 Telephone encounter Mathieu Virgen MD Work Phone: [facility] Comment on above: Dexcom G7 sensors / issue Start: 10-08-2024 End: 10-09-2024 Refill Mathieu Virgen MD Work Phone: [facility] Comment on above: Refill Request Start: 10-07-2024 End: 10-07-2024 Patient encounter procedure Tierra Gilbert PA -Laboratory Work Phone: Start: 10-07-2024 End: 10-07-2024 ambulatory Tierra Gilbert Facility:[facility] Start: 09-23-2024 End: 09-23-2024 Patient encounter procedure Tierra KIRKPATRICK -[facility] Work Phone: Start: 09-23-2024 End: 09-23-2024 ambulatory Mathieu Virgen Facility:[facility] Start: 09-23-2024 End: 09-23-2024 Office outpatient visit 15 minutes Denisha Shepard APRN.RN ORTHOPAEDIC Work Phone: [facility] Comment on above: Dizziness (Primary D x); Chest pain, unspecified type Start: 09-23-2024 End: 09-23-2024 ambulatory DENISHA SHEPARD Facility:[facility] Start: 09-22-2024 End: 09-23-2024 Telephone encounter Denisha Shepard APRN.CNP Work Phone: [facility] Comment on above: Patient Update; Appo intment Start: 09-20-2024 End: 09-20-2024 Emergency department patient visit Dr. Reji Smith MD -Emergency Department Work Phone: Start: 09-03-2024 End: 09-03-2024 Patient encounter procedure Sergey Carreon NP-[facility] Work Phone: Start: 09-03-2024 End: 09-03-2024 ambulatory [facility] Facility:[facility] Start: 09-02-2024 End: 09-02-2024 ambulatory Mathieu Virgen MD Work Phone: [facility] Comment on above: Constipation Start: 09-01-2024 End: 09-01-2024 Emergency department patient visit Mani Esquivel -Emergency Department Work Phone: Start: 08-25-2024 End: 08-25-2024 Patient encounter procedure ARSALAN Macario -Sleep Lab Work Phone: Start: 08-25-2024 End: 08-25-2024 ambulatory Megan Macario Facility:[facility] Start: 08-22-2024 End: 08-25-2024 Refill Julianna A Suppan TOLL LINE INSPECTOR.RN ORTHOPAEDIC Work Phone: [facility] Comment on above: Refill Request Start: 08-18-2024 End: 08-18-2024 Telephone encounter Mathieu Virgen MD Work Phone: [facility] Comment on above: Orders Start: 08-15-2024 End: 08-15-2024 Refill Julianna A Suppan TOLL LINE INSPECTOR.RN ORTHOPAEDIC Work Phone: [facility] Comment on above: Refill Request CGM Order Start: 08-13-2024 End: 08-13-2024 Patient encounter procedure Sergey MUNGUIA -[facility] Work Phone: Start: 08-13-2024 End: 08-13-2024 ambulatory [facility] Start: 08-11-2024 End: 08-11-2024 Patient encounter procedure Sergey Solares Lauri WOOD POLE TREATER-C -Laboratory Work Phone: Start: 08-11-2024 End: 08-11-2024 Telephone encounter Mathieu Virgen MD Work Phone: [facility] Comment on above: Patient Update Start: 08-11-2024 End: 08-11-2024 ambulatory [facility] Facility:[facility] Start: 08-05-2024 End: 08-08-2024 Nurse Triage Nurse Intm/Famp Triage [facility] Work Phone: Nurse Phone Triage Comment on above: Oxygen Order Request Scooter Start: 08-02-2024 End: 08-04-2024 ambulatory Mathieu Virgen MD Work Phone: [facility] Comment on above: Dexcom G7 CGM Start: 08-01-2024 End: 08-01-2024 Refill Mathieu Virgen MD Work Phone: [facility] Comment on above: Refill Request Start: 07-31-2024 End: 08-01-2024 Telephone encounter Julianna Hood TOLL LINE INSPECTOR.RN ORTHOPAEDIC Work Phone: [facility] Start: 07-31-2024 End: 07-31-2024 ambulatory [facility] Start: 07-31-2024 End: 07-31-2024 ambulatory Julianna Suppan Facility:[facility] Start: 07-29-2024 End: 07-29-2024 ambulatory JULIANNA A SUPPAN Facility:[facility] Start: 07-29-2024 End: 07-29-2024 Office outpatient visit 25 minutes Julianna Dede Swiftan TOLL LINE INSPECTOR.RN ORTHOPAEDIC Work Phone: [facility] Comment on above: Type 2 diabetes debbie itus with microalbuminuria (HCC) (Primary Dx); Systolic congestive heart failure, unspecified HF chronicity (HCC); Essential hypertension; Paroxysmal atrial fibrillation (HCC); Restrictive lung disease; Schizophrenia, chronic condition (HCC); Chronic anticoagulation; Diastolic congestive heart failure, unspecified HF chronicity (HCC); Iron deficiency anemia, unspecified iron deficiency anemia type; Vitamin B12 deficiency Start: 07-28-2024 End: 07-28-2024 ambulatory Julianna Hood Facility:[facility] Start: 07-23-2024 ambulatory [facility] Start: 07-22-2024 ambulatory Sara Landry [facility] Start: 07-22-2024 End: 07-25-2024 Evaluation and management of inpatient [facility] Facility:[facility] Start: 07-10-2024 End: 07-10-2024 ambulatory [facility] Start: 07-10-2024 End: 07-11-2024 ambulatory [facility] Facility:[facility] Start: 07-09-2024 End: 07-09-2024 Refill Mathieu Virgen MD Work Phone: [facility] Comment on above: Refill Request Start: 07-08-2024 End: 07-08-2024 ambulatory [facility] Facility:[facility] Start: 07-04-2024 End: 07-04-2024 ambulatory [facility] Start: 07-04-2024 End: 07-04-2024 ambulatory [facility] Facility:[facility] Start: 06-24-2024 End: 06-24-2024 Emergency department patient visit [facility] Facility:[facility] Start: 06-23-2024 End: 06-23-2024 ambulatory ABRIL DUVAL Facility:[facility] Start: 06-23-2024 End: 06-23-2024 Patient encounter procedure Abril Duval TOLL LINE INSPECTOR.RN ORTHOPAEDIC Work Phone: Neurology Comment on above: Snoring (Primary Dx) ; Witnessed episode of apnea; Nocturnal leg movements; Frequent nocturnal awakening; Nocturia Start: 06-23-2024 End: 06-24-2024 Telephone encounter Mathieu Virgen MD Work Phone: [facility] Comment on above: Results Start: 06-20-2024 End: 06-20-2024 Refill Zoila Wright TOLL LINE INSPECTOR.RN ORTHOPAEDIC Work Phone: Family [facility] [address] Comment on above: Refill Request Essential hypertensi [...] (HCC) Start: 06-18-2024 End: 06-23-2024 Telephone encounter Mathieu Virgen MD Work Phone: [facility] Comment on above: Patient Question Start: 06-17-2024 End: 06-17-2024 Telephone encounter Mathieu Virgen MD Work Phone: [facility] Start: 06-16-2024 End: 06-16-2024 ambulatory Mathieu Virgen MD Work Phone: [facility] Comment on above: Scooter Start: 06-11-2024 End: 06-11-2024 ambulatory MATHIEU PARAM Facility:[facility] Start: 06-08-2024 End: 06-09-2024 Refill Mathieu Virgen MD Work Phone: [facility] Comment on above: Refill Request Start: 06-08-2024 End: 06-08-2024 Emergency department patient visit [facility] Facility:[facility] Start: 05-31-2024 End: 05-31-2024 Emergency department patient visit [facility] Facility:[facility] Start: 05-31-2024 End: 05-31-2024 ambulatory Narda Theodore RN NURSE TIN WORKER Comment on above: Dizziness Start: 05-31-2024 End: 05-31-2024 Patient encounter procedure Amairani Mcclendon APRN.CNP Work Phone: [facility] Comment on above: Generalized weakness (Primary Dx) Start: 05-08-2024 End: 05-08-2024 ambulatory [facility] Start: 05-08-2024 End: 05-09-2024 ambulatory [facility] Facility:[facility] Start: 05-07-2024 End: 05-07-2024 Chart abstracting Mathieu Virgen MD Work Phone: [facility] Start: 05-07-2024 End: 05-07-2024 ambulatory [facility] Facility:[facility] Start: 05-05-2024 End: 05-05-2024 Refill Mathieu Virgen MD Work Phone: [facility] Comment on above: Refill Request Start: 04-30-2024 End: 04-30-2024 ambulatory [facility] Facility:[facility] Start: 04-14-2024 Refill Mathieu Virgen MD Work Phone: [facility] Comment on above: Refill Request Start: 04-12-2024 End: 04-12-2024 Emergency department patient visit [facility] Facility:[facility] Start: 04-11-2024 ambulatory Randi Turner RN NURSE TIN WORKER Comment on above: Patient Update; Bloo d In Urine Encounter for medica l assessment (Primary Dx) Start: 04-11-2024 Patient encounter status Magalie Bardales DO Work Phone: [facility] Work Phone: Start: 04-11-2024 Telemedicine consult ation with patient Magalie Bardales DO Work Phone: [facility] Start: 04-10-2024 Refill Mathieu Virgen MD Work Phone: [facility] Comment on above: Refill Request Start: 04-09-2024 End: 04-09-2024 ambulatory MATHIEU Nix PARAM Facility:[facility] Start: 04-09-2024 End: 04-09-2024 Office outpatient visit 15 minutes Andrew Guallpa APRN.CNP Work Phone: [facility] Comment on above: Abrasion of left verma d, initial encounter (Primary Dx) Start: 04-08-2024 ambulatory Mathieu Virgen MD Work Phone: [facility] Comment on above: Scooter Start: 03-21-2024 ambulatory Osvaldo ruth PA-C Work Phone: [facility] Comment on above: Test Results Start: 03-21-2024 Telephone encounter Osvaldo Travis PA-C Work Phone: [facility] Start: 03-19-2024 Telephone encounter Osvaldo Travis PA-C Work Phone: [facility] Comment on above: Results Start: 03-06-2024 Refill Zoila Wright APRN.CNP Work Phone: [facility] [place] Comment on above: Refill Request Start: 02-28-2024 End: 02-28-2024 Patient encounter procedure Osvaldo Travis PA-C Work Phone: [facility] [place] Comment on above: 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); Venous incompetence; Bilateral leg edema; SOB (shortness of breath); Weight gain; CJ (obstructive sleep apnea); Hypersomnolence; Cushingoid facies Start: 02-12-2024 End: 02-12-2024 ambulatory Nurse Intm/Famp Triage [facility] Work Phone: Nurse Phone Triage Start: 02-12-2024 End: 02-12-2024 Telephone follow-up Nurse Intm/Famp Triage [facility] Work Phone: Nurse Phone Triage Comment on above: Follow Up Start: 02-10-2024 ambulatory Osvaldo ruth PA-C Work Phone: [facility] [place] Start: 02-10-2024 Follow-up encounter Osvaldo Travis PA-C Work Phone: [facility] [place] Comment on above: Follow Up Weight Start: 02-04-2024 ambulatory Mathieu Virgen MD Work Phone: [facility] [place] Comment on above: Edema Start: 02-04-2024 End: 02-04-2024 Subsequent hospital visit by physician Xr [facility] [place] Work Phone: Radiology Comment on above: SOB (shortness of br eath) [R06.02] Start: 02-04-2024 End: 02-04-2024 Patient encounter procedure Osvaldo Travis PA-C Work Phone: [facility] [place] Comment on above: SOB (shortness of br eath) (Primary Dx); Bilateral leg edema; Weight increase Start: 01-26-2024 ambulatory Mathieu Virgen MD Work Phone: [facility] [place] Comment on above: ACCU CHECK TEST STRI PS Start: 01-18-2024 Refill Pio Nicole MD Work Phone: [facility] [place] Comment on above: Refill Request Famotidine Start: 01-09-2024 Refill Zoila Wright APRN.RN ORTHOPAEDIC Work Phone: [facility] [place] Comment on above: Refill Request Start: 01-01-2024 ambulatory Mathieu Virgen MD Work Phone: [facility] [place] Comment on above: Scooter Start: 01-01-2024 Telephone encounter Mathieu Virgen MD Work Phone: [facility] [place] Comment on above: Epi Gonzalez PA donovan er Start: 12-30-2023 ambulatory Mathieu Virgen MD Work Phone: [facility] [place] Comment on above: Scooter Start: 12-25-2023 End: 12-25-2023 Patient encounter procedure Mathieu Virgen MD Work Phone: [facility] [place] Comment on above: Paroxysmal atrial fi brillation (HCC) (Primary Dx); Essential hypertension; Mixed hyperlipidemia; Sleep apnea, unspecified type; Restrictive lung disease; 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); Schizophrenia, chronic condition (HCC); Obesity, Class II, BMI 35-39.9; Chronic anticoagulation; Pain of right hip; Psoriatic arthritis (HCC); Type 2 diabetes mellitus without complication, with long-term current use of insulin (HCC) Start: 11-14-2023 Refill Mathieu Virgen MD Work Phone: [facility] [place] Comment on above: Refill Request Medication Question Orders Start: 11-02-2023 Refill Osvaldo ruth PA-C Work Phone: [facility] Comment on above: Refill Request Start: 10-12-2023 Refill Mathieu Virgen MD Work Phone: [facility] Comment on above: Refill Request Start: 09-22-2023 End: 09-22-2023 Emergency department patient visit [facility] Work Phone: Start: 09-06-2023 End: 09-06-2023 Subsequent hospital visit by physician Xr [facility] Work Phone: Radiology Comment on above: Sinobronchitis [J32. 9, J40] Start: 09-06-2023 ambulatory Mathieu Virgen MD Work Phone: [facility] Comment on above: Coughing Up Blood Start: 08-27-2023 Refill Mathieu Virgen MD Work Phone: [facility] Comment on above: Refill Request Start: 08-07-2023 Telephone encounter Mathieu Virgen MD Work Phone: [facility] Comment on above: Patient Assistance ( [employer] (Basaglar and Humalog)) Start: 07-23-2023 End: 07-23-2023 Subsequent hospital visit by physician Xr [facility] Work Phone: Radiology Comment on above: Acute hip pain, righ t [M25.551] Start: 07-23-2023 End: 07-23-2023 Patient encounter procedure Pio Nicole MD Work Phone: [facility] Comment on above: Acute hip pain, righ t (Primary Dx) Start: 07-13-2023 Telephone encounter Mathieu Virgen MD Work Phone: [facility] Start: 07-11-2023 End: 07-11-2023 Patient encounter procedure [facility] Specimen Work Phone: Start: 06-26-2023 End: 06-26-2023 ambulatory [facility] Work Phone: Start: 06-26-2023 End: 06-26-2023 Patient encounter procedure [facility], Specimen Work Phone: Start: 06-19-2023 Refill Mathieu Virgen MD Work Phone: [facility] [place] Comment on above: Refill Request Start: 06-09-2023 ambulatory Adele murrieta RN NURSE TIN WORKER Comment on above: Viral Syndrome Start: 06-09-2023 End: 06-09-2023 Subsequent hospital visit by physician Xr [facility] [place] Work Phone: Radiology Comment on above: Viral URI with cough [J06.9] Start: 06-09-2023 End: 06-09-2023 Patient encounter procedure Pio Nicole MD Work Phone: [facility] [place] Comment on above: Viral URI with cough (Primary Dx); Suspected COVID-19 virus infection; Bronchitis Start: 06-07-2023 Refill Mathieu Virgen MD Work Phone: [facility] [place] Comment on above: Refill Request Start: 06-06-2023 End: 06-06-2023 Patient encounter procedure Mathieu Virgen MD Work Phone: [facility] [place] Comment on above: Essential hypertensi on (Primary Dx); Encounter for immunization; Paroxysmal atrial fibrillation (HCC); Mixed hyperlipidemia; Schizophrenia, chronic condition (HCC); Chronic anticoagulation; Type 2 diabetes mellitus with microalbuminuria, with long-term current use of insulin (HCC); Restrictive lung disease Start: 06-04-2023 Telephone encounter Mathieu Virgen MD Work Phone: [facility] [place] Comment on above: patient question/lab s Start: 05-18-2023 End: 05-18-2023 Patient encounter procedure Osvaldo Travis PA-C Work Phone: [facility] [place] Comment on above: Near syncope (Primar y Dx); Fall, initial encounter; Acute upper respiratory infection; Morbid obesity (HCC) Start: 05-16-2023 Refill Mathieu Virgen MD Work Phone: [facility] [place] Comment on above: Refill Request Start: 05-11-2023 Telephone encounter Mathieu Virgen MD Work Phone: [facility] Comment on above: Forms Start: 05-01-2023 End: 05-01-2023 Patient encounter procedure Osvaldo Kelvin Travis PA-C Work Phone: [facility] Comment on above: Encounter for post s urgical wound check (Primary Dx) Start: 04-30-2023 End: 04-30-2023 Patient encounter procedure Osvaldo Kelvin Travis PA-C Work Phone: [facility] Comment on above: Inflamed acrochordon (Primary Dx); Seborrheic keratoses, inflamed Start: 04-26-2023 ambulatory Mathieu Virgen MD Work Phone: [facility] Comment on above: Skin Tags Removal Start: 04-12-2023 Refill Mathieu Virgen MD Work Phone: [facility] Comment on above: Refill Request Start: 03-31-2023 End: 03-31-2023 Emergency department patient visit Dr. Mathieu Virgen Work Phone: [facility] Work Phone: Start: 03-19-2023 ambulatory Mathieu Virgen MD Work Phone: [facility] Start: 03-19-2023 Patient encounter procedure Shannon Virgen MD Work Phone: [facility] Comment on above: Appointment Start: 03-05-2023 End: 03-05-2023 Office outpatient visit 15 minutes Andrew Guallpa APRN.CNP Work Phone: [facility] Comment on above: Acute constipation ( Primary Dx) Start: 03-02-2023 End: 03-02-2023 Patient encounter procedure Mathieu Virgen MD Work Phone: [facility] Comment on above: Nausea (Primary Dx); Hypoglycemia; Type 2 diabetes mellitus with microalbuminuria, with long-term current use of insulin (HCC); Leukocytosis, unspecified type; Abnormal serum level of lipase; Benign prostatic hyperplasia with lower urinary tract symptoms, symptom details unspecified; Urinary retention Start: 03-01-2023 End: 03-01-2023 Emergency department patient visit Dr. Mathieu Virgen Work Phone: [facility] Start: 03-01-2023 End: 03-01-[address] [facility] Start: 02-24-2023 End: 02-25-2023 Emergency department patient visit Dr. Mathieu Virgen Work Phone: [facility] Start: 02-22-2023 Refill Mathieu Virgen MD Work Phone: [facility] Comment on above: Refill Request (medi cation question ) Start: 02-16-2023 End: 02-16-2023 Subsequent hospital visit by physician Xr [facility] [place] Work Phone: Radiology Comment on above: Acute left ankle stone n [M25.572] Start: 02-16-2023 End: 02-16-2023 Office outpatient visit 15 minutes Denisha Shepard APRN.RN ORTHOPAEDIC Work Phone: [facility] Comment on above: Acute left ankle stone n (Primary Dx) Start: 02-16-2023 Telephone encounter Denisha hess APRN.RN ORTHOPAEDIC Work Phone: [facility] Comment on above: Results Start: 02-16-2023 Unlisted evaluation and management service Denisha Shepard APRN.RN ORTHOPAEDIC Work Phone: [facility] Comment on above: Opened In Error Start: 02-14-2023 End: 02-14-2023 Nursing evaluation of patient and report Nurse Jerilyn [facility] Work Phone: General Surgery Comment on above: Lesion of subcutaneo us tissue (Primary Dx) Start: 01-19-2023 End: 01-19-2023 Patient encounter procedure Mathieu Virgen MD Work Phone: [facility] Comment on above: Skin mass (Primary D x) Start: 11-29-2022 End: 11-29-2022 Patient encounter procedure Mathieu Virgen MD Work Phone: [facility] Comment on above: Chest pain, unspecif ied type (Primary Dx); Leukocytosis, unspecified type; Type 2 diabetes mellitus with microalbuminuria, with long-term current use of insulin (HCC); Schizophrenia, chronic condition (HCC); Paroxysmal atrial fibrillation (HCC); Essential hypertension; Pure hypercholesterolemia Start: 11-25-2022 Telephone encounter Mathieu Virgen MD Work Phone: [facility] Comment on above: Orders Start: 11-22-2022 Patient Outreach Mathieu perez MD Work Phone: [facility] Comment on above: Transition Of Care ( [facility] 11/21-11/21 dx: chest pain) Start: 11-21-2022 Non-patient / Non-visit Dr. Shannon Virgen Work Phone: [facility] Start: 11-21-2022 Non-patient / Non-visit Dr. Shannon Virgen Work Phone: [facility] Start: 11-21-2022 End: 11-21-2022 Evaluation and management of inpatient Dr. Mathieu Virgen Work Phone: [facility] Start: 11-21-2022 End: 11-21-[address] Mathieu Virgen Work Phone: [facility] Work Phone: Start: 11-20-2022 End: 11-21-2022 Emergency department patient visit Dr. Mathieu Virgen Work Phone: [facility] Start: 11-10-2022 Refill Mathieu Virgen MD Work Phone: [facility] Comment on above: Refill Request Start: 10-26-2022 Telephone encounter Kaitlyn perez [facility] Work Phone: [facility] Comment on above: Medication Question Start: 10-26-2022 End: 10-26-[address] Mathieu Virgen Work Phone: [facility] Start: 10-16-2022 ambulatory Kaitlyn Hernández [facility] Work Phone: [facility] Comment on above: Carmela mustafa trial ca rd Start: 10-16-2022 E-mail encounter deloris bean caregiver Kaitlyn Hernández [facility] Work Phone: [facility] Start: 10-16-2022 Telephone encounter Kaitlyn perez [facility] Work Phone: [facility] Comment on above: Medication Question Start: 10-03-2022 Refill Mathieu Virgen MD Work Phone: [facility] Comment on above: Refill Request Start: 09-29-2022 Telephone encounter Kaitlyn perez [facility] Work Phone: [facility] Comment on above: Medication Question Start: 09-25-2022 Telephone encounter Mathieu Virgen MD Work Phone: [facility] Comment on above: [employer] Forms for Insulin Start: 08-21-2022 Refill Mathieu Virgen MD Work Phone: [facility] Comment on above: Refill Request Start: 08-08-2022 End: 08-08-2022 Emergency department patient visit Dr. Mathieu Virgen Work Phone: [facility] Start: 08-07-2022 ambulatory Mathieu Virgen MD Work Phone: [facility] Comment on above: Insulin Needle broke in stomach Start: 06-22-2022 Telephone encounter Kaitlyn perez [facility] Work Phone: [facility] Comment on above: Forms (Wilmar good assistance application) Start: 06-22-2022 End: 06-22-2022 Patient encounter procedure Kaitlyn Hernández [facility] Work Phone: [facility] Comment on above: Type 2 diabetes debbie itus without complication, with long-term current use of insulin (HCC) (Primary Dx) Start: 05-31-2022 End: 05-31-2022 Patient encounter procedure Mathieu Virgen MD Work Phone: [facility] Comment on above: Essential hypertensi on (Primary Dx); Paroxysmal atrial fibrillation (HCC); Pure hypercholesterolemia; Type 2 diabetes mellitus with microalbuminuria, with long-term current use of insulin (HCC); Chronic anticoagulation; Monocytosis; Need for influenza vaccination Start: 05-08-2022 Refill Mathieu Virgen MD Work Phone: [facility] Comment on above: Refill Request Start: 05-04-2022 End: 05-04-[address] Mathieu Virgen Work Phone: [facility] Start: 04-08-2022 End: 04-08-2022 Emergency department patient visit Dr. Mathieu Virgen Work Phone: [facility] Start: 04-08-2022 End: 04-08-2022 Patient encounter procedure Andrew Guallpa APRN.[facility] Work Phone: [facility] Comment on above: Chest pain, unspecif ied type (Primary Dx); Accidental medication error, initial encounter Start: 03-23-2022 Telephone encounter Kaitlyn perez [facility] Work Phone: [facility] Comment on above: Forms (Basaglar PAP) Start: 03-23-2022 End: 03-23-2022 Patient encounter procedure Kaitlyn Hernández [facility] Work Phone: [facility] Comment on above: Type 2 diabetes debbie itus without complication, with long-term current use of insulin (HCC) (Primary Dx); Essential hypertension Start: 03-06-2022 Telephone encounter Mathieu Virgen MD Work Phone: [facility] Comment on above: Forms ([employer] a pplication) Medication Question Start: 03-03-2022 End: 03-03-2022 Patient encounter procedure Mathieu Virgen MD Work Phone: [facility] Comment on above: Essential hypertensi on (Primary Dx); Pure hypercholesterolemia; Paroxysmal atrial fibrillation (HCC); Type 2 diabetes mellitus with microalbuminuria, with long-term current use of insulin (HCC); Chronic anticoagulation; Need for hepatitis C screening test Start: 03-02-2022 End: 03-02-[address] Math[facility] Start: 02-09-2022 Telephone encounter Mathieu Virgen MD Work Phone: [facility] Comment on above: indigent med Start: 02-07-2022 End: 02-07-[address] Mathieu Virgen Work Phone: [facility] Start: 02-06-2022 Telephone encounter Mathieu Virgen MD Work Phone: [facility] Comment on above: Patient Request Start: 02-03-2022 End: 02-03-2022 Patient encounter procedure Papito Eyad PEDRO Work Phone: [facility] Comment on above: Gastrocnemius tear, right, initial encounter (Primary Dx) Start: 02-02-2022 Refill Mathieu Virgen MD Work Phone: [facility] Comment on above: Refill Request Start: 02-01-2022 Refill Mathieu Virgen MD Work Phone: [facility] Comment on above: Refill Request (michael ent assistance ) Start: 01-31-2022 Refill Mathieu Virgen MD Work Phone: [facility] Comment on above: Prescription Refills Start: 01-30-2022 End: 01-30-[address] Mathieu Virgen Work Phone: [facility] Start: 01-27-2022 End: 01-27-2022 Patient encounter procedure Saad Park APRN.CNP Work Phone: [facility] Comment on above: Strain of calf muscl e, right, initial encounter (Primary Dx) Start: 01-12-2022 End: 01-12-2022 Patient encounter procedure Kaitlyn Hernández [facility] Work Phone: [facility] Comment on above: Type 2 diabetes debbie itus without complication, with long-term current use of insulin (HCC) (Primary Dx) Refill Request Start: 12-30-2021 Telephone encounter Mathieu Virgen MD Work Phone: [facility] Comment on above: Medication Problem Start: 12-29-2021 Refill Mathieu Virgen MD Work Phone: [facility] Comment on above: Refill Request Start: 12-15-2021 Telephone encounter Kaitlyn Weaver ana [facility] Work Phone: [facility] Comment on above: Forms (Jardiance PAP ) Start: 12-13-2021 Telephone encounter Mathieu Virgen MD Work Phone: [facility] Comment on above: Medication Problem Start: 12-12-2021 Refill Mathieu Virgen MD Work Phone: [facility] Comment on above: Refill Request Start: 11-30-2021 End: 11-30-[address] Mathieu Virgen Work Phone: [facility] Start: 11-11-2021 Non-patient / Non-visit Dr. Shannon Virgen Work Phone: [facility] Start: 11-10-2021 End: 11-10-[address] [facility] Start: 11-09-2021 Non-patient / Non-visit Dr. Shannon Virgen Work Phone: [facility] Start: 11-09-2021 End: 11-09-[address] Math[facility] Start: 11-01-2021 End: 11-01-[address] Mathieu Virgen Work Phone: [facility] Start: 10-24-2021 End: 10-24-[address] Mathieu Virgen Work Phone: [facility] Start: 07-13-2021 End: 07-13-2021 Subsequent hospital visit by physician Xr [facility] Work Phone: Radiology Comment on above: SOB (shortness of br eath) [R06.02] Start: 05-25-2021 End: 05-25-2021 Subsequent hospital visit by physician Xr [facility] Work Phone: Radiology Comment on above: phone apt Start: 01-24-2021 End: 01-24-2021 Subsequent hospital visit by physician Xr [facility] Work Phone: Radiology Comment on above: SOB (shortness of br eath) [R06.02] Procedures Date Procedure Procedure Detail Performing Clinician Start: 04-08-[address] Louis Virgen MD Work Phone: Comment on above: Performed at: [place] [id number] Director: Naresh Pruitt PhD, Phone: [phone] Start: 04-08-[address] Roxanna Virgen MD Work Phone: Comment on above: The atypical pANCA p attern has been observed in asignificant percentage of patients with ulcerative colitis,primary sclerosing cholangitis and autoimmune hepatitis. Start: 04-08-2025 Antibody to centrome re measurement Dr. Mathieu Virgen MD Work Phone: Comment on above: Test not performed Start: 04-08-2025 Antibody to extracta ble nuclear antigen measurement Dr. Mathieu Virgen MD Work Phone: Comment on above: Test not performed Start: 04-08-2025 Antibody to MARCELINA-[address] Mathieu Virgen MD Work Phone: Comment on above: Test not performed Start: 04-08-2025 Antibody to lupus La protein measurement Dr. Mathieu Virgen MD Work Phone: Comment on above: Test not performed Start: 04-08-2025 Antibody to SS-A measurement Dr. Mathieu Virgen MD Work Phone: Comment on above: Test not performed Start: 04-08-[address] Mathieu Virgen MD Work Phone: Comment on above: Test not performed Start: 04-08-2025 ASSOCIATE FINANCIAL REPRESENTATIVE antibody measurement Dr. Mathieu Virgen MD Work Phone: Comment on above: Test not performed Start: 04-01-2025 CT of chest without contrast Dr. Mathieu Virgen MD Work Phone: Start: 01-19-2025 Plain chest X-ray Dr. Dung Virgen MD Work Phone: Start: 01-19-[address] Mathieu Virgen MD Work Phone: Start: 01-12-2025 Radex foot complete minimum 3 views Mathieu Virgen MD Work Phone: Start: 12-02-2024 Adult depression screening assessment Mathieu Virgen MD Work Phone: Start: 11-28-2024 Urine microalbumin/creatinine ratio measurement Dr. Mathieu Vrigen MD Work Phone: Start: 10-07-2024 Measurement of renal function Dr. Mathieu Virgen MD Work Phone: Comment on above: GFR Calc Start: 09-20-2024 Plain chest X-ray Dr. Dung Virgen MD Work Phone: Start: 09-01-[address] Augustin Virgen MD Work Phone: Start: 09-01-2024 Computed tomography of abdomen and pelvis with intravenous contrast Dr. Mathieu Virgen MD Work Phone: Start: 09-01-2024 X-ray of chest, PA a nd lateral views Dr. Mathieu Virgen MD Work Phone: Start: 05-07-2024 Hemoglobin A1c/Hemoglobin.total in Blood [facility] Provider Start: 02-04-2024 Radiologic exam ches t 2 views Osvaldo Travis PA-C Work Phone: Start: 02-04-2024 Ecg routine ecg w/le ast 12 lds i&r only Osvaldo SNYDERC Work Phone: Start: 12-25-2023 Adult depression screening assessment Mathieu Virgen MD Work Phone: Start: 09-22-2023 Plain chest X-ray Start: 09-06-2023 Radiologic exam ches t 2 views Anum Cheung TOLL LINE INSPECTOR.RN ORTHOPAEDIC Work Phone: Start: 07-23-2023 Radex hip unilateral with pelvis 2-3 views Pio Nicole MD Work Phone: Start: 06-09-2023 Radiologic exam ches t 2 views Pio Nicole MD Work Phone: Start: 06-06-2023 INFLUENZA VACCINE, P RSV FREE, AGE 65+ YR, HIGH DOSE, QUADRIVALENT (FLUZONE HIGH-DOSE) Mathieu Virgen MD Work Phone: Start: 03-31-2023 Computed tomography of abdomen and pelvis with intravenous contrast Dr. Mathieu Virgen Work Phone: Start: 03-01-2023 Computed tomography of abdomen and pelvis with intravenous contrast Dr. Mathieu Virgen Work Phone: Start: 02-16-2023 Radex ankle complete minimum 3 views Denisha Shepard TOLL LINE INSPECTOR.RN ORTHOPAEDIC Work Phone: Start: 11-21-2022 Cardiovascular stres s test using pharmacologic stress agent Dr. Mathieu Virgen Work Phone: Start: 11-21-2022 Plain chest X-ray Dr. Dung Virgen Work Phone: Start: 08-08-2022 Diagnostic radiograp hy of abdomen Dr. Mathieu Virgen Work Phone: Start: 05-31-2022 INFLUENZA SEASONAL QUADRIVALENT HIGH DOSE AGE 65+ Mathieu Virgen MD Work Phone: Start: 04-08-2022 Plain chest X-ray Dr. Dung Virgen Work Phone: Start: 03-03-2022 Adult depression screening assessment Mathieu Virgen MD Work Phone: Start: 07-13-2021 Radiologic exam ches t 2 views Jeannette Garcia PA-C Work Phone: Start: 05-25-2021 Radex ribs uni w/posteroant ch minimum 3 views Mathieu Virgen MD Work Phone: Start: 01-24-2021 Radiologic exam ches t 2 views Fito Haseeb TOLL LINE INSPECTOR.RN ORTHOPAEDIC, DNP Work Phone: Start: 07-16-2018 Adult depression screening assessment Mathieu Virgen MD Work Phone: H/O: surgery H/O wrist surgery Dr. Judi Virgen Work Phone: Laboratory test resu lt abnormal Abnormal serum level of lipase Mathieu Virgen MD Work Phone: Plan of Treatment Date Care Activity Detail Author Start: 01-26-2026 Annual PCP Team Chronic Disease Visit Annual PCP Team Chronic Disease Visit [facility] Start: 01-26-2026 BP Controlled (<130/80) BP Controlled (<130/80) [facility] Start: 01-12-2026 Annual PCP Team Chronic Disease Visit Annual PCP Team Chronic Disease Visit [facility] Start: 01-12-2026 BP Controlled (<130/80) BP Controlled (<130/80) [facility] Start: 12-02-2025 Annual PCP Team Chronic Disease Visit Annual PCP Team Chronic Disease Visit [facility] Start: 12-02-2025 Anxiety Screening Anxiety Screening [facility] Start: 12-02-2025 BP Controlled (<130/80) BP Controlled (<130/80) [facility] Start: 12-02-2025 Depression Screening Depression Screening [facility] Start: 12-02-2025 RSV Vaccine (1 - 1-dose 75+ series) RSV Vaccine (1 - 1-dose 75+ series) [facility] Comment on above: Postponed from 2019 (Declined at t his time) Start: 10-31-2025 Annual PCP Team Chronic Disease Visit Annual PCP Team Chronic Disease Visit [facility] Start: 10-31-2025 BP Controlled (<130/80) BP Controlled (<130/80) [facility] Start: 09-23-2025 Annual PCP Team Chronic Disease Visit Annual PCP Team Chronic Disease Visit [facility] Start: 09-23-2025 BP Controlled (<130/80) BP Controlled (<130/80) [facility] [facility] Start: 07-29-2025 BP Controlled (<130/80) BP Controlled (<130/80) [facility] Start: 07-08-2025 Measurement of respiratory function [facility] Start: 06-20-2025 Annual PCP Team Chronic Disease Visit Annual PCP Team Chronic Disease Visit [facility] Start: 06-20-2025 Covid-19 Vaccine ( season) Covid-19 Vaccine () [facility] Comment on above: Postponed from 05/18/2024 (Declined at t his time) Start: 06-20-2025 Diabetic foot examination Diabetic Foot Exam [facility] Start: 06-20-2025 Glaucoma screening Dilated Retinal Exam [facility] Start: 06-20-2025 Shingrix Vaccine (1 of 2) Shingrix Vaccine (1 of 2) [facility] Comment on above: Postponed from 1994 (Declined at t his time) Start: 06-20-2025 Urine microalbumin profile DTaP,Tdap,Td Vaccine (1 - Tdap) [facility] Comment on above: Postponed from 1963 (Declined at t his time) Start: 05-18-2025 Influenza vaccination Influenza Vaccine (#1) [facility] Start: 05-13-2025 End: 08-12-2025 Hemoglobin A1c in Blood HEMOGLOBIN A1C Lab Routine 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) Essential hypertension Expected: 05/13/2025, Expires: 08/12/2025 [facility] Comment on above: Expected: 05/13/2025, Expires: Start: 02-27-2025 Annual PCP Team Chronic Disease Visit Annual PCP Team Chronic Disease Visit [facility] Start: 02-26-2025 Walking distance 6 minutes [facility] Start: 02-03-2025 Annual PCP Team Chronic Disease Visit Annual PCP Team Chronic Disease Visit [facility] Start: 02-03-2025 BP Controlled (<130/80) BP Controlled (<130/80) [facility] Start: 01-26-2025 End: 01-26-2025 Patient encounter procedure 01/26/2025 2:40 PM EDT Office Visit Family Medicine [place] [address] [facility] [place] [address] Mathieu Virgen MD [address] [place] [address] Blood sugar regulation, blood pressure not too low [facility] [place] Comment on above: Blood sugar regulation, blood pressure n ot too low Start: 01-22-2025 End: 01-22-2025 Patient encounter procedure 01/22/2025 3:15 PM EDT Office Visit Podiatry [address] [place] [address] Jamal Mace [address] [facility] [place] [address] left foot fracture Podiatry Comment on above: left foot fracture Start: 01-20-2025 [facility] Start: 01-19-2025 [facility] Start: 12-24-2024 Annual PCP Team Chronic Disease Visit Annual PCP Team Chronic Disease Visit [facility] Start: 12-24-2024 Anxiety Screening Anxiety Screening [facility] Start: 12-24-2024 Covid-19 Vaccine () Covid-19 Vaccine () [facility] Comment on above: Postponed from 05/18/2023 (Declined at t his time) Start: 12-24-2024 Depression Screening Depression Screening [facility] Start: 12-19-2024 End: 12-19-2024 Patient encounter procedure 12/19/2024 1:40 PM EDT Office Visit [facility] [place] [address] [place] [address] Mathieu Virgen MD [address] [place] [address] 6 mo follow up [facility] [place] Comment on above: 6 mo follow up Start: 12-09-2024 Hemoglobin A1c measurement HbA1C [facility] Start: 12-02-2024 End: 12-02-2024 Patient encounter procedure 12/02/2024 3:40 PM EDT Office Visit Family Medicine [place] [address] [place] [address] Mathieu Virgen MD [address] [place] [id number] All lab results [facility] [place] Comment on above: All lab results Start: 12-02-2024 End: 03-03-2025 CBC W Ordered Manual Differential panel - Blood PATHOLOGIST INTERPRETATION WITH CBC AND DIFF Lab Routine Leukocytosis, unspecified type Expected: 12/02/2024, Expires: 03/03/2025 [facility] Work Phone: Comment on above: Expected: 12/02/2024, Expires: Start: 11-27-2024 End: 02-26-2025 CBC panel - Blood by Automated count COMPLETE BLOOD COUNT Lab Routine 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) Expected: 11/27/2024, Expires: 02/26/2025 [facility] Comment on above: Expected: 11/27/2024, Expires: Start: 11-27-2024 End: 02-26-2025 Comprehensive metabolic 2000 panel - Serum or Plasma COMPREHENSIVE METABOLIC PANEL Lab Routine 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) Expected: 11/27/2024, Expires: 02/26/2025 [facility] Comment on above: Expected: 11/27/2024, Expires: Start: 11-27-2024 End: 02-26-2025 Hemoglobin A1c in Blood HEMOGLOBIN A1C Lab Routine 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) Expected: 11/27/2024, Expires: 02/26/2025 [facility] Comment on above: Expected: 11/27/2024, Expires: Start: 11-27-2024 Hepatitis B screening Urine Albumin:Creatinine Ratio [facility] Start: 11-27-2024 Hepatitis B surface antibody level LDL Cholesterol [facility] Start: 11-27-2024 End: 02-26-2025 Lipid 1996 panel - Serum or Plasma LIPID PANEL BASIC Lab Routine Nonobstructive atherosclerosis of coronary artery Pure hypercholesterolemia Expected: 11/27/2024, Expires: 02/26/2025 [facility] Work Phone: Comment on above: Expected: 11/27/2024, Expires: Start: 11-27-2024 End: 02-26-2025 Microalbumin/Creatinine [Mass Ratio] in Urine ALBUMIN/CREATININE RATIO, URINE Lab Routine 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) Expected: 11/27/2024, Expires: 02/26/2025 [facility] Comment on above: Expected: 11/27/2024, Expires: Start: 11-13-2024 End: 02-12-2025 Basic metabolic 2000 panel - Serum or Plasma BASIC METABOLIC PANEL Lab Routine 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) Essential hypertension Expected: 11/13/2024, Expires: 02/12/2025 [facility] Comment on above: Expected: 11/13/2024, Expires: Start: 11-13-2024 End: 02-12-2025 CBC panel - Blood by Automated count COMPLETE BLOOD COUNT Lab Routine 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) Essential hypertension Expected: 11/13/2024, Expires: 02/12/2025 [facility] Work Phone: Comment on above: Expected: 11/13/2024, Expires: Start: 11-13-2024 End: 02-12-2025 Magnesium [Mass/volume] in Serum or Plasma MAGNESIUM Lab Routine 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) Essential hypertension Expected: 11/13/2024, Expires: 02/12/2025 [facility] Comment on above: Expected: 11/13/2024, Expires: Start: 11-07-2024 Hemoglobin A1c measurement HbA1C [facility] Start: 11-03-2024 [facility] Start: 10-31-2024 End: 10-31-2024 Patient encounter procedure 10/31/2024 1:40 PM EST Office Visit Family Medicine [place] [address] [place] [address] Mathieu Virgen MD [address] [place], [place] [address] 3 month f/u [facility] [place] Comment on above: 3 month f/u Start: 09-23-2024 Evaluation of diagnostic study results [facility] Start: 09-20-2024 [facility] Start: 09-20-2024 [facility] Start: 09-17-2024 Advance Directive Discussion Advance Directive Discussion [facility] Start: 09-17-2024 Medicare Advantage Annual Wellness Visit Medicare Advantage Annual Wellness Visit [facility] Start: 09-06-2024 Annual PCP Team Chronic Disease Visit Annual PCP Team Chronic Disease Visit [facility] Start: 09-06-2024 BP Controlled (<130/80) BP Controlled (<130/80) [facility] Start: 09-06-2024 RSV Vaccine (1 - 1-dose 60+ series) RSV Vaccine (1 - 1-dose 60+ series) [facility] Comment on above: Postponed from 2004 (Declined at t his time) Start: 09-06-2024 RSV Vaccine (1 - 1-dose 75+ series) RSV Vaccine (1 - 1-dose 75+ series) [facility] Comment on above: Postponed from 2019 (Declined at t his time) Start: 09-01-2024 [facility] Start: 07-29-2024 End: 10-28-2024 Basic metabolic 2000 panel - Serum or Plasma BASIC METABOLIC PANEL Lab Routine Systolic congestive heart failure, unspecified HF chronicity (HCC) Expected: 07/29/2024, Expires: 10/28/2024 [facility] Work Phone: Comment on above: Expected: 07/29/2024, Expires: Start: 07-29-2024 End: 10-28-2024 CBC W Auto Differential panel - Blood COMPLETE BLOOD COUNT AND DIFFERENTIAL Lab Routine Systolic congestive heart failure, unspecified HF chronicity (HCC) Expected: 07/29/2024, Expires: 10/28/2024 [facility] Comment on above: Expected: 07/29/2024, Expires: Start: 07-29-2024 End: 10-28-2024 Magnesium [Mass/volume] in Serum or Plasma MAGNESIUM Lab Routine Systolic congestive heart failure, unspecified HF chronicity (HCC) Expected: 07/29/2024, Expires: 10/28/2024 [facility] Comment on above: Expected: 07/29/2024, Expires: Start: 07-25-2024 End: 07-25-2024 ambulatory 07/25/2024 1:15 PM EST Results Only [facility] [address] [place] [address] Labs [facility] Comment on above: Labs Start: 07-23-2024 Annual PCP Team Chronic Disease Visit Annual PCP Team Chronic Disease Visit [facility] Start: 07-23-2024 BP Controlled (<130/80) BP Controlled (<130/80) [facility] in Start: 06-25-2024 End: 09-24-2024 Comprehensive metabolic 2000 panel - Serum or Plasma COMP METABOLIC PANEL Lab Routine Psoriatic arthritis (HCC) Expected: 06/25/2024, Expires: 09/24/2024 [facility] Work Phone: Comment on above: Expected: 06/25/2024, Expires: Start: 06-25-2024 End: 09-24-2024 Hemoglobin A1c in Blood HGB A1C Lab Routine Type 2 diabetes mellitus without complication, with long-term current use of insulin (HCC) Expected: 06/25/2024, Expires: 09/24/2024 [facility] Work Phone: Comment on above: Expected: 06/25/2024, Expires: Start: 06-23-2024 End: 06-23-2024 Patient encounter procedure 06/23/2024 2:30 PM EDT Office Visit Neurology [address] [place] [address] Abril Duval APRN.RN ORTHOPAEDIC [address] [place] [address] CJ (obstructive sleep apnea) [G47.33] Neurology Comment on above: CJ (obstructive sleep apnea) [G47.33] Start: 06-20-2024 End: 06-20-2024 Patient encounter procedure 06/20/2024 3:40 PM EDT Office Visit [facility] [place] [address] [place] [address] Mathieu Virgen MD [address] [place] [address] Blood sugar levels [facility] [place] Comment on above: Blood sugar levels Start: 06-20-2024 End: 09-19-2024 25-hydroxyvitamin D3 [Mass/volume] in Serum or Plasma [facility] Work Phone: Comment on above: Expected: 06/20/2024, Expires: Start: 06-20-2024 End: 09-19-2024 CBC W Auto Differential panel - Blood [facility] Comment on above: Expected: 06/20/2024, Expires: Start: 06-20-2024 End: 09-19-2024 Creatine kinase [Enzymatic activity/volume] in Serum or Plasma [facility] Comment on above: Expected: 06/20/2024, Expires: Start: 06-20-2024 End: 09-19-2024 Thyrotropin [Units/volume] in Serum or Plasma [facility] Comment on above: Expected: 06/20/2024, Expires: Start: 06-18-2024 Glaucoma screening Dilated Retinal Exam [facility] Start: 06-09-2024 Annual PCP Team Chronic Disease Visit Annual PCP Team Chronic Disease Visit [facility] Start: 06-09-2024 BP Controlled (<130/80) BP Controlled (<130/80) [facility] Start: 06-06-2024 3 comp foot exam completed Diabetic Foot Exam [facility] Start: 06-06-2024 Annual PCP Team Chronic Disease Visit Annual PCP Team Chronic Disease Visit [facility] Start: 06-06-2024 Diabetic foot examination Diabetic Foot Exam [facility] Start: 06-06-2024 Hepatitis B Vaccine (1 of 3 - Risk 3-dose series) Hepatitis B Vaccine (1 of 3 - Risk 3-dose series) [facility] Comment on above: Postponed from 2004 (Declined at t his time) Start: 05-18-2024 ANNUAL PCP TEAM CHRONIC DISEASE VISIT ANNUAL PCP TEAM CHRONIC DISEASE VISIT [facility] Start: 05-18-2024 BP CONTROLLED (<130/80) BP CONTROLLED (<130/80) [facility] Start: 05-18-2024 Covid-19 Vaccine ( season) Covid-19 Vaccine () [facility] Start: 05-18-2024 Covid-19 Vaccine () Covid-19 Vaccine () [facility] Start: 05-18-2024 Influenza vaccination Influenza Vaccine (#1) [facility] Start: 05-01-2024 ANNUAL PCP TEAM CHRONIC DISEASE VISIT ANNUAL PCP TEAM CHRONIC DISEASE VISIT [facility] Start: 05-01-2024 BP CONTROLLED (<130/80) BP CONTROLLED (<130/80) [facility] Start: 04-30-2024 COVID-19 VACCINE (#1) COVID-19 VACCINE (#1) [facility] Comment on above: Postponed from 1944 (Declined at t his time) Start: 04-30-2024 SHINGRIX VACCINE (1 of 2) SHINGRIX VACCINE (1 of 2) [facility] Comment on above: Postponed from 1994 (Insurance Cov erage) Start: 04-30-2024 Urine microalbumin profile [facility] Comment on above: Postponed from 1963 (Insurance Cov erage) Start: 04-30-2024 End: 04-30-2024 ambulatory 04/30/2024 9:45 AM EDT OT/PT/Speech Visit [facility] [address] [place] [address] Rosa Orta, PT Venous incompetence [I87.2] [facility] Comment on above: Venous incompetence [I87.2] Start: 04-14-2024 End: 04-14-2024 Patient encounter procedure 04/14/2024 1:40 PM EDT Office Visit Family Medicine [place] [address] [place] [address] Julianna Hood APRN.RN ORTHOPAEDIC [address] [place] [address] Blood in Urine [facility] [place] Comment on above: Blood in Urine Start: 04-10-2024 End: 04-10-2024 Patient encounter procedure 04/10/2024 11:40 AM EDT Office Visit [facility] Sumeet Gonzalez [address] [place] [address] Osvaldo Travis PA-C [address] [facility] [place] [address] 6 week f/u [facility] [place] Comment on above: 6 week f/u Start: 03-19-2024 End: 03-19-2024 Patient encounter procedure 03/19/2024 12:30 PM EDT Office Visit Vasculary Surgery [address] [place] [address] 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, 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]; Venous incompetence [I87.2] Vasculary Surgery Comment on above: 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, 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]; Venous incompetence [I87.2] Start: 03-17-2024 End: 03-17-2024 Patient encounter procedure 03/17/2024 2:40 PM EDT Office Visit Cardiology [address] [place] [address] Bilateral leg edema [R60.0]; SOB (shortness of breath) [R06.02]; Weight gain [R63.5] Cardiology Comment on above: Bilateral leg edema [R60.0]; SOB (shortn ess of breath) [R06.02]; Weight gain [R63.5] Start: 03-05-2024 BP CONTROLLED (<130/80) BP CONTROLLED (<130/80) [facility] Start: 03-02-2024 ANNUAL PCP TEAM CHRONIC DISEASE VISIT ANNUAL PCP TEAM CHRONIC DISEASE VISIT [facility] Start: 03-02-2024 BP CONTROLLED (<130/80) BP CONTROLLED (<130/80) [facility] Start: 02-28-2024 End: 05-29-2024 Basic metabolic 2000 panel - Serum or Plasma [facility] Work Phone: Comment on above: Expected: 02/28/2024, Expires: Start: 02-28-2024 End: 05-29-2024 Cortisol [Mass/volume] in Serum or Plasma CORTISOL, SERUM Lab Routine Weight gain Hypersomnolence Cushingoid facies Expected: 02/28/2024, Expires: 05/29/2024 [facility] Comment on above: Expected: 02/28/2024, Expires: Start: 02-28-2024 Hemoglobin A1c measurement HbA1C [facility] Start: 02-28-2024 End: 05-29-2024 Natriuretic peptide.B prohormone N-Terminal [Mass/volume] in Serum or Plasma [facility] Comment on above: Expected: 02/28/2024, Expires: Start: 02-28-2024 End: 02-28-2024 Patient encounter procedure 02/28/2024 11:00 AM EDT Office Visit Family Medicine [place] [address] [place] [address] Osvaldo Travis PA-C [address] [place] [address] 4 week follow up [facility] [place] Comment on above: 4 week follow up Start: 02-17-2024 ANNUAL PCP TEAM CHRONIC DISEASE VISIT ANNUAL PCP TEAM CHRONIC DISEASE VISIT [facility] Start: 02-04-2024 End: 05-05-2024 Comprehensive metabolic 2000 panel - Serum or Plasma [facility] Work Phone: Comment on above: Expected: 02/04/2024, Expires: Start: 02-04-2024 End: 05-05-2024 Natriuretic peptide.B prohormone N-Terminal [Mass/volume] in Serum or Plasma [facility] Comment on above: Expected: 02/04/2024, Expires: Start: 02-04-2024 End: 05-05-2024 Thyrotropin [Units/volume] in Serum or Plasma [facility] Comment on above: Expected: 02/04/2024, Expires: Start: 01-20-2024 ANNUAL PCP TEAM CHRONIC DISEASE VISIT ANNUAL PCP TEAM CHRONIC DISEASE VISIT [facility] Start: 12-05-2023 End: 02-04-2024 Basic metabolic 2000 panel - Serum or Plasma BASIC METABOLIC PNL Lab Routine Type 2 diabetes mellitus with microalbuminuria, with long-term current use of insulin (HCC) Expected: 12/05/2023, Expires: 02/04/2024 [facility] Work Phone: Comment on above: Expected: 12/05/2023, Expires: Start: 12-05-2023 End: 02-04-2024 CBC W Auto Differential panel - Blood CBC + DIFF Lab Routine Type 2 diabetes mellitus with microalbuminuria, with long-term current use of insulin (HCC) Expected: 12/05/2023, Expires: 02/04/2024 [facility] Work Phone: Comment on above: Expected: 12/05/2023, Expires: 4 Start: 12-05-2023 End: 02-04-2024 Hemoglobin A1c in Blood HGB A1C Lab Routine Type 2 diabetes mellitus with microalbuminuria, with long-term current use of insulin (HCC) Expected: 12/05/2023, Expires: 02/04/2024 [facility] Work Phone: Comment on above: Expected: 12/05/2023, Expires: 4 Start: 12-05-2023 End: 02-04-2024 Lipid 1996 panel - Serum or Plasma LIPID PANEL BASIC Lab Routine Mixed hyperlipidemia Expected: 12/05/2023, Expires: 02/04/2024 [facility] Work Phone: Comment on above: Expected: 12/05/2023, Expires: Start: 11-30-2023 ANNUAL PCP TEAM CHRONIC DISEASE VISIT ANNUAL PCP TEAM CHRONIC DISEASE VISIT [facility] Start: 11-28-2023 End: 02-27-2024 ALBUMIN/CREAT RATIO RND UR ALBUMIN/CREAT RATIO RND UR Lab Routine Type 2 diabetes mellitus without complication, with long-term current use of insulin (HCC) Expected: 11/28/2023, Expires: 02/27/2024 [facility] Work Phone: Comment on above: Expected: 11/28/2023, Expires: 4 Start: 11-28-2023 Hepatitis B screening URINE ALBUMIN:CREATININE RATIO [facility] Start: 11-28-2023 Hepatitis B surface antibody level LDL CHOLESTEROL [facility] Start: 11-16-2023 Hemoglobin A1c measurement HbA1C [facility] Start: 11-16-2023 Hemoglobin A1c/Hemoglobin.total in Blood HbA1C [facility] Start: 09-22-2023 [facility] Start: 09-22-2023 [facility] Start: 09-17-2023 Advance Directive Discussion Advance Directive Discussion [facility] Start: 09-17-2023 Depression Assessment Depression Assessment [facility] Start: 06-01-2023 End: 08-01-2023 Hemoglobin A1c in Blood HGB A1C Lab Routine Type 2 diabetes mellitus with microalbuminuria, with long-term current use of insulin (HCC) Expected: 06/01/2023, Expires: 08/01/2023 [facility] Work Phone: Comment on above: Expected: 06/01/2023, Expires: 3 Start: 05-31-2023 3 comp foot exam completed DIABETIC FOOT EXAM [facility] Start: 05-31-2023 ANNUAL PCP TEAM CHRONIC DISEASE VISIT ANNUAL PCP TEAM CHRONIC DISEASE VISIT [facility] Start: 05-30-2023 Hemoglobin A1c/Hemoglobin.total in Blood HBA1C [facility] Start: 05-30-2023 End: 07-30-2023 Lipid 1996 panel - Serum or Plasma LIPID PANEL BASIC Lab Routine Type 2 diabetes mellitus with microalbuminuria, with long-term current use of insulin (HCC) Expected: 05/30/2023, Expires: 07/30/2023 [facility] Work Phone: Comment on above: Expected: 05/30/2023, Expires: 3 Start: 05-18-2023 End: 07-18-2023 Comprehensive metabolic 2000 panel - Serum or Plasma [facility] Work Phone: Comment on above: Expected: 05/18/2023, Expires: 3 Start: 05-18-2023 End: 07-18-2023 Creatine kinase [Enzymatic activity/volume] in Serum or Plasma [facility] Work Phone: Comment on above: Expected: 05/18/2023, Expires: 3 Start: 05-18-2023 Influenza vaccination [facility] Start: 05-18-2023 End: 07-18-2023 Urinalysis complete panel - Urine [facility] Work Phone: Comment on above: Expected: 05/18/2023, Expires: 3 Start: 05-18-2023 End: 07-18-2023 URINALYSIS, DIPSTICK ONLY [facility] Work Phone: Comment on above: Expected: 05/18/2023, Expires: 3 Start: 03-03-2023 Adult depression screening assessment DEPRESSION SCREENING [facility] Start: 03-03-2023 ANNUAL PCP TEAM CHRONIC DISEASE VISIT ANNUAL PCP TEAM CHRONIC DISEASE VISIT [facility] Start: 03-03-2023 BP CONTROLLED (<130/80) BP CONTROLLED (<130/80) [facility] Start: 03-02-2023 End: 05-02-2023 Comprehensive metabolic 2000 panel - Serum or Plasma [facility] Work Phone: Comment on above: Expected: 03/02/2023, Expires: 3 Start: 03-02-2023 End: 05-02-2023 Lipase [Enzymatic activity/volume] in Serum or Plasma [facility] Work Phone: Comment on above: Expected: 03/02/2023, Expires: 3 Start: 01-27-2023 BP CONTROLLED (<130/80) BP CONTROLLED (<130/80) [place] [facility] Start: 11-29-2022 End: 01-29-2023 CBC W Ordered Manual Differential panel - Blood PATHOLOGIST INTERPRETATION WITH CBC AND DIFF Lab Routine Leukocytosis, unspecified type Expected: 11/29/2022, Expires: 01/29/2023 [facility] Work Phone: Comment on above: Expected: 11/29/2022, Expires: 3 Start: 11-27-2022 End: 01-27-2023 ALBUMIN/CREAT RATIO RND UR [facility] Work Phone: Comment on above: Expected: 11/27/2022, Expires: 3 Start: 11-27-2022 End: 01-27-2023 CBC W Auto Differential panel - Blood [facility] Work Phone: Comment on above: Expected: 11/27/2022, Expires: 3 Start: 11-27-2022 End: 01-27-2023 Comprehensive metabolic 2000 panel - Serum or Plasma [facility] Work Phone: Comment on above: Expected: 11/27/2022, Expires: 3 Start: 11-27-2022 End: 01-27-2023 Hemoglobin A1c in Blood [facility] Work Phone: Comment on above: Expected: 11/27/2022, Expires: 3 Start: 11-21-2022 Patient discharge [facility] Start: 11-21-2022 ANNUAL PCP TEAM CHRONIC DISEASE VISIT ANNUAL PCP TEAM CHRONIC DISEASE VISIT [facility] Start: 11-21-2022 BP CONTROLLED (<130/80) BP CONTROLLED (<130/80) [facility] Start: 11-21-2022 Following clinical pathway protocol [facility] Start: 11-21-2022 Assessment of risk of venous thromboembolism [facility] Start: 11-21-[address] [facility] Start: 11-21-2022 Fall prevention [facility] Start: 11-21-2022 Incentive spirometry [facility] Start: 11-21-2022 Inhalation therapy procedure [facility] Start: 11-21-2022 Insertion of catheter into peripheral vein [facility] Start: 11-21-2022 Introduction of urinary catheter [facility] Start: 11-21-2022 Measuring intake and output [facility] Start: 11-21-2022 Oxygen therapy [facility] Start: 11-21-2022 Providing care according to standard [facility] Start: 11-21-2022 Provision of activity privileges [facility] Start: 11-21-2022 Referral to service [facility] Start: 11-21-2022 [facility] Start: 11-21-2022 Admission procedure [facility] Start: 11-21-2022 [facility] Start: 10-18-2022 Glaucoma screening Dilated Retinal Exam [facility] Start: 10-18-2022 Hepatitis C antibody, confirmatory test DILATED RETINAL EXAM [facility] Start: 09-17-2022 ADVANCE DIRECTIVE DISCUSSION ADVANCE DIRECTIVE DISCUSSION [facility] Start: 09-17-2022 DEPRESSION ASSESSMENT DEPRESSION ASSESSMENT [facility] Start: 08-30-2022 End: 10-30-2022 Basic metabolic 2000 panel - Serum or Plasma BASIC METABOLIC PNL Lab Routine Type 2 diabetes mellitus without complication, with long-term current use of insulin (HCC) Expected: 08/30/2022, Expires: 10/30/2022 [facility] Work Phone: Comment on above: Expected: 08/30/2022, Expires: 3 Start: 08-30-2022 End: 10-30-2022 CBC W Ordered Manual Differential panel - Blood PATHOLOGIST INTERPRETATION WITH CBC AND DIFF Lab Routine Monocytosis Expected: 08/30/2022, Expires: 10/30/2022 [facility] Work Phone: Comment on above: Expected: 08/30/2022, Expires: 3 Start: 08-30-2022 End: 10-30-2022 Hemoglobin A1c in Blood HGB A1C Lab Routine Type 2 diabetes mellitus with microalbuminuria, with long-term current use of insulin (HCC) Expected: 08/30/2022, Expires: 10/30/2022 [facility] Work Phone: Comment on above: Expected: 08/30/2022, Expires: 3 Start: 08-29-2022 Hemoglobin A1c/Hemoglobin.total in Blood HBA1C [facility] Start: 08-25-2022 Hemoglobin A1c/Hemoglobin.total in Blood HBA1C [facility] Start: 08-16-2022 Hepatitis B screening URINE ALBUMIN:CREATININE RATIO [facility] Start: 08-16-2022 Hepatitis B surface antibody level LDL CHOLESTEROL [facility] Start: 06-03-2022 End: 08-03-2022 Basic metabolic 2000 panel - Serum or Plasma BASIC METABOLIC PNL Lab Routine Type 2 diabetes mellitus with microalbuminuria, with long-term current use of insulin (HCC) Expected: 06/03/2022, Expires: 08/03/2022 [facility] Work Phone: Comment on above: Expected: 06/03/2022, Expires: 2 Start: 06-03-2022 End: 08-03-2022 CBC W Auto Differential panel - Blood CBC + DIFF Lab Routine Type 2 diabetes mellitus with microalbuminuria, with long-term current use of insulin (HCC) Expected: 06/03/2022, Expires: 08/03/2022 [facility] Work Phone: Comment on above: Expected: 06/03/2022, Expires: 2 Start: 06-03-2022 End: 08-03-2022 Hemoglobin A1c in Blood HGB A1C Lab Routine Type 2 diabetes mellitus with microalbuminuria, with long-term current use of insulin (HCC) Expected: 06/03/2022, Expires: 08/03/2022 [facility] Work Phone: Comment on above: Expected: 06/03/2022, Expires: 2 Start: 06-03-2022 End: 08-03-2022 Hepatitis C virus Ab [Presence] in Serum HEP C AB IA W/CONF SCRN Lab Routine Need for hepatitis C screening test Expected: 06/03/2022, Expires: 08/03/2022 [facility] Work Phone: Comment on above: Expected: 06/03/2022, Expires: 2 Start: 05-18-2022 Influenza vaccination INFLUENZA (#1) [facility] Start: 05-06-2022 3 comp foot exam completed DIABETIC FOOT EXAM [facility] Start: 04-08-2022 [facility] Work Phone: Start: 02-11-2022 End: 04-13-2022 Hemoglobin A1c/Hemoglobin.total in Blood [facility] Comment on above: Expected: 02/11/2022, Expires: 2 Start: 01-12-2022 End: 03-14-2022 Basic metabolic 2000 panel - Serum or Plasma BASIC METABOLIC PNL Lab Routine Type 2 diabetes mellitus without complication, with long-term current use of insulin (HCC) Expected: 01/12/2022, Expires: 03/14/2022 [facility] Work Phone: Comment on above: Expected: 01/12/2022, Expires: 2 Start: 09-17-2021 ADVANCE DIRECTIVE DISCUSSION ADVANCE DIRECTIVE DISCUSSION [facility] Start: 09-17-2021 DEPRESSION ASSESSMENT DEPRESSION ASSESSMENT [facility] Start: 07-16-2019 Adult depression screening assessment DEPRESSION SCREENING [facility] Start: 2019 RSV Vaccine (1 - 1-dose 75+ series) RSV Vaccine (1 - 1-dose 75+ series) [facility] Start: 2004 Hepatitis B Vaccine (1 of 3 - Risk 3-dose series) Hepatitis B Vaccine (1 of 3 - Risk 3-dose series) [facility] Start: 2004 RSV Vaccine (1 - 1-dose 60+ series) RSV Vaccine (1 - 1-dose 60+ series) [facility] Start: 1994 SHINGRIX VACCINE (1 of 2) SHINGRIX VACCINE (1 of 2) [facility] Start: 1963 Urine microalbumin profile [facility] Start: 1962 BP CONTROLLED (<130/80) BP CONTROLLED (<130/80) [facility] Start: 1962 HEPATITIS C SCREENING HEPATITIS C SCREENING [facility] Start: 1950 PNEUMOCOCCAL: 65+ (1 - PCV) PNEUMOCOCCAL: 65+ (1 - PCV) [facility] Start: 1949 COVID-19 VACCINE (#1) COVID-19 VACCINE (#1) [facility] Start: 1949 COVID-19 VACCINE (1) COVID-19 VACCINE (1) [facility] Start: 1944 COVID-19 VACCINE (#1) COVID-19 VACCINE (#1) [facility] CBC W Auto Different ial panel - Blood CBC + DIFF Lab Routine Near syncope 05/18/2023 4:29 PM EDT [facility] Work Phone: COVID & INFLUENZA A/ B & RSV NAAT, ROUTINE COVID & INFLUENZA A/B & RSV NAAT, ROUTINE Microbiology Routine Suspected COVID-19 virus infection 06/09/2023 11:25 AM EDT [facility] Work Phone: End: 05-18-2024 ECG COMPLETE ECG COMPLETE ECG Routine Near syncope Fall, initial encounter 1 Occurrences starting 05/18/2023 until 05/18/2024 [facility] Work Phone: Comment on above: 1 Occurrences starting 05/18/2023 until 05/18/2024 ECG COMPLETE ECG COMPLETE ECG Routine SOB (shortness of breath) Bilateral leg edema Weight increase 02/04/2024 11:01 AM EDT [facility] End: 02-27-2025 Echocardiography ECHO Cardiology Routine Bilateral leg edema SOB (shortness of breath) Weight gain 1 Occurrences starting 02/28/2024 until 02/27/2025 [facility] Comment on above: 1 Occurrences starting 02/28/2024 until 02/27/2025 Ferritin [Mass/volum e] in Serum or Plasma [facility] Lipid 1996 panel - S leatha or Plasma LIPID PANEL BASIC Lab Routine Type 2 diabetes mellitus with microalbuminuria, with long-term current use of insulin (HCC) 11/27/2022 9:20 AM EDT [facility] Work Phone: Measurement of respiratory function [facility] Measurement of respiratory function [facility] Patient Education [facility] Work Phone: Patient referral [facility] Work Phone: ROUTINE FLU A/B + RSV ROUTINE FL U A/B + RSV Lab Routine Suspected COVID-19 virus infection 06/09/2023 11:25 AM EDT [facility] Work Phone: SARS-CoV-2 (COVID-19 ) RNA [Presence] in Respiratory specimen by DARRIAN with probe detection COVID NAAT, ROUTINE Microbiology Routine Acute upper respiratory infection 05/18/2023 4:19 PM EDT [facility] Work Phone: SARS-CoV-2 (COVID-19 ) RNA [Presence] in Respiratory specimen by DARRIAN with probe detection COVID NAAT, UPPER RESPIRATORY, ROUTINE Microbiology Routine Suspected COVID-19 virus infection 06/09/2023 11:25 AM EDT [facility] Work Phone: End: 02-27-2025 US Vein - bilateral US VENOUS INCOMPETENCY [facility] V[facility] Lab Routine Varicose veins of both lower extremities with inflammation 1 Occurrences starting 02/28/2024 until 02/27/2025 [facility] Comment on above: 1 Occurrences starting 02/28/2024 until 02/27/2025 Walking distance 6 minutes [facility] End: 03-05-2025 XR Chest PA and Lateral XR CHEST 2V FRONTAL/LAT Radiology Routine SOB (shortness of breath) Bilateral leg edema Weight increase 1 Occurrences starting 02/04/2024 until 03/05/2025 [facility] Comment on above: 1 Occurrences starting 02/04/2024 until 03/05/2025 XR Chest PA and Lateral XR CHEST 2V FRONTAL/LAT Radiology Routine SOB (shortness of breath) Bilateral leg edema Weight increase 02/04/2024 12:26 PM EDT [facility] XR Foot - left AP an d Lateral and oblique XR FOOT GENERAL 3V AP/LAT/OBL LEFT Radiology Routine Closed fracture of foot, unspecified laterality, initial encounter 01/22/2025 4:13 PM EDT [facility] Work Phone: End: 02-21-2026 XR Foot - left AP and Lateral and oblique XR FOOT GENERAL 3V AP/LAT/OBL LEFT Radiology Routine Closed fracture of foot, unspecified laterality, initial encounter 1 Occurrences starting 01/22/2025 until 02/21/2026 [facility] Work Phone: Comment on above: 1 Occurrences starting 01/22/2025 until 02/21/2026 End: 08-21-2024 XR HIP GENERAL 3V PELV/AP/LAT RIGHT XR HIP GENERAL 3V PELV/AP/LAT RIGHT Radiology Routine Acute hip pain, right 1 Occurrences starting 07/23/2023 until 08/21/2024 [facility] Work Phone: Comment on above: 1 Occurrences starting 07/23/2023 until 08/21/2024 XR HIP GENERAL 3V PELV/AP/LAT RIGHT XR HIP GENERAL 3V PELV/AP/LAT RIGHT Radiology Routine Acute hip pain, right 07/23/2023 3:10 PM EST [facility] Work Phone: [facility] Immunizations Immunization Date Immunization Notes Care Provider Rashida light 06-20-2024 influenza, high dose seasonal, preservative-free Zoila Wright APRN.CNP Work Phone: [facility] 06-20-2024 influenza virus vacc ine, unspecified formulation Mathieu Virgen MD Work Phone: [facility] 06-06-2023 influenza (HD-IIV4) vaccine, age 65+ yr, high dose, quadrivalent, PF (FLUZONE HIGH-DOSE) Mathieu Virgen MD Work Phone: [facility] 06-06-2023 influenza virus vacc ine, unspecified formulation FERNY Travis PA-C Work Phone: [facility] 05-31-2022 influenza, high-dose , quadrivalent vaccine (FLUZONE HIGH DOSE QUADRIVALENT) Mathieu Virgen MD Work Phone: [facility] 05-31-2022 influenza virus vacc ine, unspecified formulation Mathieu Virgen MD Work Phone: [facility] 06-17-2021 influenza, injectabl e, quadrivalent, preservative free [facility] 06-17-2021 influenza, seasonal, injectable Mathieu Virgen MD Work Phone: [facility] 06-17-2021 influenza, seasonal, injectable, preservative free Mathieu Virgen MD Work Phone: [facility] 07-26-2020 influenza, high-dose , quadrivalent vaccine (FLUZONE HIGH DOSE QUADRIVALENT) Mathieu Virgen MD Work Phone: [facility] 08-21-2019 influenza, injectabl e, quadrivalent, preservative free [facility] 08-21-2019 influenza, seasonal, injectable Mathieu Virgen MD Work Phone: [facility] 08-21-2019 influenza, seasonal, injectable, preservative free Mathieu Virgen MD Work Phone: [facility] Work Phone: 07-04-2019 influenza, high dose seasonal, preservative-free Mathieu Virgen MD Work Phone: [facility] 07-16-2018 influenza, high dose seasonal, preservative-free Mathieu Virgen MD Work Phone: [facility] 08-27-2017 influenza, high dose seasonal, preservative-free Mathieu Virgen MD Work Phone: [facility] 08-17-2016 pneumococcal polysaccharide vaccine, 23 valent Mathieu Virgen MD Work Phone: [facility] 06-14-2016 influenza, high dose seasonal, preservative-free Mathieu Virgen MD Work Phone: [facility] Work Phone: 07-14-2015 influenza, high dose seasonal, preservative-free Mathieu Virgen MD Work Phone: [facility] Work Phone: 06-16-2015 pneumococcal conjuga te vaccine, 13 valent Mathieu Virgen MD Work Phone: [facility] Work Phone: 06-25-2014 influenza, seasonal, injectable Mathieu Virgen MD Work Phone: [facility] 07-12-2013 influenza virus vacc ine, unspecified formulation Mathieu Virgen MD Work Phone: [facility] 06-15-2012 influenza virus vacc ine, unspecified formulation Mathieu Virgen MD Work Phone: [facility] Work Phone: 06-07-2011 influenza virus vacc ine, unspecified formulation Mathieu Virgen MD Work Phone: [facility] Work Phone: 07-02-2010 influenza virus vacc ine, unspecified formulation Mathieu Virgen MD Work Phone: [facility] Work Phone: 07-14-2009 pneumococcal polysaccharide vaccine, 23 valent Mathieu Virgen MD Work Phone: [facility] 06-09-2009 influenza virus vacc ine, unspecified formulation Mathieu Virgen MD Work Phone: [facility] 07-22-2008 influenza virus vacc ine, unspecified formulation Mathieu Virgen MD Work Phone: [facility] 07-27-2007 influenza virus vacc ine, unspecified formulation Mathieu Virgen MD Work Phone: [facility] Work Phone: 07-23-2006 influenza virus vacc ine, unspecified formulation Mathieu Virgen MD Work Phone: [facility] Work Phone: 07-13-2005 influenza virus vacc ine, unspecified formulation Mathieu Virgen MD Work Phone: [facility] Work Phone: Payers Date Payer Category Payer Self-pay [id number] 2014 Medicare (Managed Care) PRIMETIM E [id number] 2014 Unknown PRIMETIME PRIMET [employer] HMO POS [id number] 2014-Present [phone] [place] [id number] [facility] [id number] 2014 Unknown [id number]. [id number] 2014 Unknown [id number] Unknown [id number] 2.16.840.1.550015.3.579. 2.462 Unknown [id number] 2.16.840.1.118490.3.579. 2.462 Unknown [id number] 2.16.840.1.538498.3.579. 2.462 Unknown [id number] 2.16.840.1.910755.3.579. 2.462 Unknown [id number] 2.16.840.1.440141.3.579. 2.462 Unknown [id number] 2.16.840.1.702135.3.579. 2.462 Unknown [id number] 2.16.840.1.783788.3.579. 2.462 Unknown [id number] 2.16.840.1.601290.3.579. 2.462 Unknown [id number] 2.16.840.1.302456.3.579. 2.462 Unknown [id number] 2.16.840.1.438411.3.579. 2.462 Unknown [id number] 2.16.840.1.194062.3.579. 2.462 Unknown [id number] 2.16.840.1.716656.3.579. 2.462 Unknown [id number] 2.16.840.1.222370.3.579. 2.462 Unknown [id number] 2.16.840.1.800760.3.579. 2.462 Unknown [id number] 2.16.840.1.505165.3.579. 2.462 Unknown [id number] 2.16.840.1.176606.3.579. 2.462 Unknown [id number] 2.16.840.1.153930.3.579. 2.462 Unknown [id number] 2.16.840.1.056910.3.579. 2.462 Unknown [id number] 2.16.840.1.613310.3.579. 2.462 Unknown [id number] 2.16.840.1.503992.3.579. 2.462 Unknown [id number] 2.16840.1.611365.3.579. 2.462 Unknown [id number] 2.16840.1.087307.3.579. 2.462 Unknown [id number] 2.16840.1.036728.3.579. 2.462 Unknown [id number] 2.840.1.231340.3.579. 2.462 Unknown [id number] 2.840.1.739907.3.579. 2.462 Unknown [id number] 2.16840.1.382016.3.579. 2.462 Unknown [id number] 2.16840.1.097902.3.579. 2.462 Unknown [id number] 2.16840.1.026851.3.579. 2.462 Unknown [id number] 2.16840.1.295596.3.579. 2.462 Unknown [id number] 2.16840.1.031547.3.579. 2.462 Unknown [id number] 2.16.840.1.797703.3.579. 2.462 Unknown [id number] 2.16.840.1.796180.3.579. 2.462 Unknown [id number] 2.16.840.1.391315.3.579. 2.462 Unknown [id number] 2.16.840.1.270360.3.579. 2.462 Unknown [id number] 2.16.840.1.024542.3.579. 2.462 Unknown [id number] 2.16.840.1.897641.3.579. 2.462 Unknown [id number] 2.16.840.1.194485.3.579. 2.462 Unknown [id number] 2.16.840.1.816593.3.579. 2.462 Unknown [id number] 2.16.840.1.070751.3.579. 2.462 Unknown [id number] 2.16.840.1.004343.3.579. 2.462 Unknown [id number] 2.16.840.1.435599.3.579. 2.462 Unknown [id number] 2.840.1.267182.3.579. 2.462 Unknown [id number] 2.16840.1.622686.3.579. 2.462 Unknown [id number] 2.16.840.1.520356.3.579. 2.462 Unknown [id number] 2.16.840.1.196273.3.579. 2.462 Unknown [id number] 2.16.840.1.035640.3.579. 2.462 Unknown [id number] 2.16840.1.460816.3.579. 2.462 Unknown [id number] 2.16840.1.361846.3.579. 2.462 Unknown [id number] 2.16840.1.274620.3.579. 2.462 Unknown [id number] 2.16840.1.653151.3.579. 2.462 Unknown [id number] 2.16840.1.877367.3.579. 2.462 Social History Date Type Detail Facility Start: 08-17-2016 End: 01-19-2025 Tobacco smoking status NHIS Ex-smoker [facility] Start: 09-17-1970 End: 09-17-1980 History of tobacco use Current smoker [facility] Start: 09-17-1970 End: 09-17-1980 History of tobacco use Cigarette Smoker [facility] Start: 11-21-2021 End: 01-22-2025 Alcohol intake Current non-drinker of alcohol (finding) [facility] Start: 1945 Sex Assigned At Not on file C [facility] Start: 12-25-2020 End: 05-31-2022 Exposure to SARS-CoV-2 (event) Not sure [facility] Start: 01-30-2022 End: 09-22-2023 Tobacco smoking status [facility] Unknown if ever smoked [facility] Start: 10-26-2021 Cigarettes [facility] Start: 1945 Sex Assigned At Male [facility] Start: 03-29-2022 End: 04-08-2022 Exposure to SARS-CoV-2 (event) Unable to assess [facility] Work Phone: Start: 08-17-2016 End: 01-18-2023 Cigarettes smoked current (pack per day) - Reported 2 [facility] Start: 08-17-2016 End: 06-20-2024 Tobacco use and exposure Smokeless tobacco non-user [facility] Start: 01-19-2023 History SDOH Alcohol Frequency 1 [facility] Start: 01-19-2023 History SDOH Alcohol Std Drinks 0 [facility] Start: 01-19-2023 History SDOH Social Connections Phone 5 [facility] Start: 01-19-2023 History SDOH Social Connections Get Together 3 [facility] Start: 01-19-2023 History SDOH Social Connections Membership 2 [facility] Start: 01-19-2023 History SDOH Social Connections Living 4 [facility] Start: 01-18-2023 End: 06-19-2024 Social connection and isolation panel [facility] Do you belong to any clubs or organizations such as nondenominational groups, unions, fraternal or athletic groups, or school groups? No [facility] Are you now , , , , never or living with a partner? [facility] How often to you hav e a drink containing alcohol? Never [facility] How many standard dr inks containing alcohol do you have on a typical day? Patient does not drink [facility] How hard is it for y ou to pay for the very basics like food, housing, medical care, and heating Not very hard [facility] Do you feel stress - tense, restless, nervous, or anxious, or unable to sleep at night because your mind is troubled all the time - these days [OSQ] Not at all [facility] (I/We) worried wheth er (my/our) food would run out before (I/we) got money to buy more. Never true [facility] Start: 01-18-2023 Gender identity Identifies as male gender (finding) [facility] Start: 12-08-2024 End: 12-09-2024 Sex Male (finding) [facility] Medical Equipment Procedure Code Equipment Code Equipment Original Text Equipment Identifier Dates Total cholecystectomy with exploration of common bile duct CLIP,PRABHA WERI FDA Start: 11-19-2019 Total cholecystectomy with exploration of common bile duct CLIP,HEMMASOOD WEIR FDA Start: 11-19-2019 Total cholecystectomy with exploration of common bile duct CLIP,HEMMASOOD WEIR FDA Start: 11-19-2019 Total cholecystectomy with exploration of common bile duct CLIP,HEMMASOOD WEIR FDA Start: 11-19-2019 Total cholecystectomy with exploration of common bile duct CLIP,HEMMASOOD WEIR FDA Start: 11-19-2019 Total cholecystectomy with exploration of common bile duct CLIP,HEMMASOOD WEIR FDA Start: 11-19-2019 Total cholecystectomy with exploration of common bile duct CLIP,HEMMASOOD WEIR FDA Start: 11-19-2019 Total cholecystectomy with exploration of common bile duct CLIP,HEMMASOOD WEIR FDA Start: 11-19-2019 Total cholecystectomy with exploration of common bile duct CLIP,HEMMASOOD WEIR FDA Start: 11-19-2019 Total cholecystectomy with exploration of common bile duct CLIP,HEMMASOOD WEIR FDA Start: 11-19-2019 Total cholecystectomy with exploration of common bile duct CLIP,HEMMASOOD WEIR FDA Start: 11-19-2019 Total cholecystectomy with exploration of common bile duct CLIP,HEMMASOOD WEIR FDA Start: 11-19-2019 Total cholecystectomy with exploration of common bile duct CLIP,HEMANTHONYConecte Link WECK FDA Start: 11-19-2019 Total cholecystectomy with exploration of common bile duct CLIP,HEMOLOCK ANAHI WECK FDA Start: 11-19-2019 Total cholecystectomy with exploration of common bile duct CLIP,HEMOLOCK ANAHI WECK FDA Start: 11-19-2019 Total cholecystectomy with exploration of common bile duct CLIP,HEMOLOCK ANAHI WECK FDA Start: 11-19-2019 Total cholecystectomy with exploration of common bile duct CLIP,HEMOLOLILIA CHRISTIAN WECK FDA Start: 11-19-2019 Total cholecystectomy with exploration of common bile duct CLIP,HEMOLOCK ANAHI WECK FDA Start: 11-19-2019 Total cholecystectomy with exploration of common bile duct CLIP,HEMOLOCK ANAHI WECK FDA Start: 11-19-2019 Total cholecystectomy with exploration of common bile duct CLIP,HEMOLOCK ANAHI WECK FDA Start: 11-19-2019 Total cholecystectomy with exploration of common bile duct CLIP,HEMOLOLILIA CHRISTIAN WECK FDA Start: 11-19-2019 Total cholecystectomy with exploration of common bile duct CLIP,HEMOLOLILIA MORALESCK FDA Start: 11-19-2019 Total cholecystectomy with exploration of common bile duct CLIP,HEMOLOLILIA CHRISTIAN WECK FDA Start: 11-19-2019 Total cholecystectomy with exploration of common bile duct CLIP,HEMOLOCK ANAHI WECK FDA Start: 11-19-2019 Total cholecystectomy with exploration of common bile duct CLIP,HEMOLOCK ANAHI WECK FDA Start: 11-19-2019 Total cholecystectomy with exploration of common bile duct CLIP,HEMOLOCK ANAHI WECK FDA Start: 11-19-2019 Total cholecystectomy with exploration of common bile duct CLIP,HEMOLOLILIA CHRISTIAN WECK FDA Start: 11-19-2019 Total cholecystectomy with exploration of common bile duct CLIP,HEMOLOCK ANAHI WECK FDA Start: 11-19-2019 Total cholecystectomy with exploration of common bile duct CLIP,HEMOLOCK ANAHI WECK FDA Start: 11-19-2019 Total cholecystectomy with exploration of common bile duct CLIP,HEMOLOCK ANAHI WECK FDA Start: 11-19-2019 Total cholecystectomy with exploration of common bile duct CLIP,HEMOLOCK ANAHI WECK FDA Start: 11-19-2019 Total cholecystectomy with exploration of common bile duct CLIP,HEMOLOCK ANAHI WECK FDA Start: 11-19-2019 1 Each twice daily. Accuchbyyd compact test strips, dx-NIDDM [id number] Start: 08-20-2013 Comment on above: 1 Each twice daily. Accucheck compact test strips, dx-NIDDM [id number], [id number], [id number] Start: 08-20-2013 End: 06-20-2024 Comment on above: 1 Each once daily. D X: E11.9 Insulin: Yes Test blood sugar(s) 1 times daily. Dx: 250.00. Insulin: Yes Goals Date Patient Goal Desired Activity /State Functional Status Date Assessment Result Facility 11-21-2022 Functional status Activity Abili ty Independent [facility] Work Phone: 03-31-2015 Are you deaf, or do you have serious difficulty hearing No 03/31/2015 12:49 PM EDT Gregoria Moeller RN No [facility] 03-31-2015 Are you blind, or do you have serious difficulty seeing, even when wearing glasses No 03/31/2015 12:49 PM EDT Gregoria Moeller RN No [facility] 03-31-2015 Do you have serious difficulty walking or climbing stairs No 03/31/2015 12:49 PM EDT Gregoria Moeller RN No [facility] 03-31-2015 Do you have difficul ty dressing or bathing No 03/31/2015 12:49 PM EDT Gregoria Moeller RN No [facility] 03-31-2015 Because of a physica l, mental, or emotional condition, do you have difficulty doing errands alone such as visiting a physician's office or shopping No 03/31/2015 12:49 PM EDT Gregoria Moeller RN No [facility] Mental Status Date Assessment Result Facility 01-19-2025 Cognitive function Voice/Name [facility] Work Phone: 09-20-2024 Cognitive function Awake;Alert;A ppropriate;Fol lows Commands [facility] Work Phone: 09-01-2024 Cognitive function Level Of Cons ciousness Awake;Alert;Appropriate;Fol lows Commands [facility] Work Phone: 09-22-2023 Cognitive function Level Of Cons ciousness Awake;Alert;Appropriate;Fol lows Commands [facility] Work Phone: 07-15-2023 Cognitive function Level Of Cons ciousness Awake;Alert;Appropriate;Fol lows Commands [facility] Work Phone: 02-24-2023 Cognitive function Level Of Cons ciousness Drowsy [facility] Work Phone: 11-21-2022 Cognitive function Voice/Name [facility] Work Phone: 11-21-2022 Cognitive function Awake;Alert;Appropriat e [facility] Work Phone: 08-08-2022 Cognitive function Level Of Cons ciousness Awake;Alert;Appropriate;Fol lows Commands;Responds to vocal stimuli [facility] Work Phone: 04-08-2022 Cognitive function Level Of Cons ciousness Awake;Alert;Appropriate;Fol lows Commands [facility] Work Phone: 03-31-2015 Because of a physica l, mental, or emotional condition, do you have serious difficulty concentrating, remembering, or making decisions 03/31/2015 12:49 PM EDT Gregoria Moeller RN No [facility] Clinical Notes 01-24-2021 to 04-03-2025 Telephone Encounter - Jaylene Henley LPN - 04/03/2025 11:11 AM EDTTelephone Encounter - Jaylene Henley LPN - 04/03/2025 11:11 AM EDTTelephone Encounter - Mathieu Virgen MD - 04/03/2025 10:45 AM EDT Note Date & Type Note Facility 04-03-2025 Telephone encount er Note Faxed application. [facility] 04-03-2025 Miscellaneous Notes Formattin g of this note might be different from the original. Faxed application. done Type of form: Prescription Assistance Form received via walk in When form is completed, Fax form to [facility] Form has been forwarded to Physician Desk: Dr. Virgen Prescription pended to go to [facility], as listed on form. Janet King MA documented in this encounter [facility] 04-03-2025 Telephone encount er Note done [facility] 04-02-2025 Telephone encount er Note Type of form: Prescription Assistance Form received via walk in When form is completed, Fax form to [facility] Form has been forwarded to Physician Desk: Dr. Virgen Prescription pended to go to [facility], as listed on form. Janet King MA [facility] 04-01-2025 Radiology Diagnostic study note [facility] Imaging Services [address] [place] [id number] Chest without Contrast MR#: [id number] Acct: [id number] Name: FAISAL ALARCON Rep #: [id number] : 1945 M 79 From: Ernst Ngo DO PCP: Dr. Mathieu Virgen MD Status: REG C CLEM Study:Chest without Contrast Date of Exam: 04/01/25 Exam# [id number] Ordering Dr: Megan Macario [employer]-C PROCEDURE: CHEST WITHOUT CONTRAST 04/01/2025 REASON FOR EXAM: RESTRICTIVE LUNG DISEASE AND SHORTNESS OF BREATH TECHNIQUE: Chest CT without contrast. Coronal and Sagittal reconstruction series were provided. One or more dose reduction techniques were used (e.g., Automated exposure control, adjustment of the mA and/or kV according to patient size, use of iterative reconstruction technique COMPARISON: None FINDINGS: Mild cardiomegaly. Moderate LAD and circumflex coronary artery calcifications. Aortic valve calcifications. No significant pericardial effusion. Calcified nonaneurysmal thoracic aorta. Normal caliber pulmonary arteries. No bulky mediastinal or hilar adenopathy. Several calcified lymph nodes consistent with old granulomatous disease. No significant findings in the visualized upper abdomen. Gynecomastia. Central airways are patent. Mild diffuse bilateral subpleural reticulation, greatest at the bases. Mild middle and lower lobe bronchiectasis. No significant honeycombing at this time. Minimal punctate ground-glass subpleural nodules in the upper lobes. No focal consolidation, pleural effusion or pneumothorax. No dominant pulmonarymass. No acute osseous abnormality. Diffuse idiopathic skeletal hyperostosis. CT/Chest without Contrast IMPRESSION: 1. Mild pulmonary fibrotic changes as detailed above. No definite acute airspace abnormality. 2. Cardiomegaly and coronary artery disease. Reading Location: [facility] CC: Dr. Mathieu Virgen MD; Megan Macario NP ~ Communications Editor: Signed [facility] 03-27-2025 Telephone encount er Note Rx(s) need sent to [facility] is closing. Christian Bob LPN [facility] 03-27-2025 Miscellaneous Notes Formattin g of this note might be different from the original. Rx(s) need sent to [facility] is [facility]. Christian Bob LPN Patient's daughter, Farida calling today asking if the medication refill can be completed before the end of the day. Patient is out of the medication. documented in this encounter [facility] 03-27-2025 Telephone encount er Note Patient's daughter, Farida calling today asking if the medication refill can be completed before the end of the day. Patient is out of the medication. [facility] 03-02-2025 Procedure note [facility] 02-11-2025 Miscellaneous Notes [facility] requesting DM note faxed to them documenting diabetes visit. Sent as requested. documented in this encounter [facility] 02-11-2025 Telephone encounter Note [facility] requesting DM note faxed to them documenting diabetes visit. Sent as requested. [facility] 01-26-2025 Note HNO ID: [id number] Author: MATIHEU VIRGEN MD Service: ? Author Type: Physician Type: Progress Notes Filed: 01/26/2025 14:53 Note Text: Patient presents with: Diabetes: A1C right now is 6.8 according to his marielle HPI: Patient presents today for office visit for follow up. Diabetes: Patient denies any low readings. Brings in his marielle which is readding very well. States that he did have a fall today getting out of truck. He just wasn't being careful like he should. Is wearing slide on sandals today. Did see podiatry for his left foot fracture. HTN: breathing is stable. . Denies any swelling. Bp is stable. No chest pain No dizziness. Bp is doing much getter. Still following with cardiology. He did fall getting his scooter off of his vehicle. No head injury. No loc. Has an abrasion on his elbow. No major injury. Is cleaned and covered. Last A1c recently was 7.0 MEDICATIONS: Current Outpatient Medications Medication Sig carvedilol (COREG) 25 mg tablet Take 1 tablet by mouth two times a day. insulin glargine (BASAGLAR KWIKPEN U-100 INSULIN) 100 unit/mL (3 mL) Inject 47 Units subcutaneously daily at bedtime. losartan (COZAAR) 25 mg tablet Take 0.5 tablets by mouth once daily. insulin aspart, niacinamide, (FIASP FLEXTOUCH U-100 INSULIN) 100 unit/mL (3 mL) pen Inject 26 Units subcutaneously three times a day before meals. finasteride (PROSCAR) 5 mg tablet Take 1 tablet by mouth once daily. dilTIAZem CD (CARDIZEM CD, CARTIA XT) 120 mg 24 hr capsule Take 1 capsule by mouth once daily. flecainide (TAMBOCOR) 100 mg tablet Take 100 mg by mouth two times a day. spironolactone (ALDACTONE) 25 mg tablet Take 25 mg by mouth once daily. isosorbide mononitrate ER (IMDUR) 30 mg 24 hr tablet Take 1 tablet by mouth every afternoon. Ordered by cardiology Blood-Glucose Sensor ([employer] G7 SENSOR) sayra Apply new sensor every ten (10) days. metFORMIN ER (GLUCOPHAGE XR) 500 mg 24 hr tablet Take 2 tablets by mouth two times a day before meals. furosemide (LASIX) 40 mg tablet Take 1 tablet by mouth once daily. atorvastatin (LIPITOR) 20 mg tablet Take 1 tablet by mouth once daily. Replaces simvastatin OXYGEN, HOME THERAPY, 2 L/min by Nasal Cannula route continuous. famotidine (PEPCID) 20 mg tablet Take 1 tablet by mouth two times a day. OTC NUTRITIONAL SUPPLEMENT NUVOFLEX TURMERIC ORAL Take by mouth. tamsulosin (FLOMAX) 0.4 mg Take 1 capsule by mouth every 12 hours. solifenacin 10 mg tablet Take 1 tablet by mouth every afternoon. empagliflozin (JARDIANCE) 25 mg tablet Take 1 tablet by mouth once daily. Take 1 tablet once daily in the morning cyanocobalamin (VITAMIN B-12) 1,000 mcg tab Take 1 tablet by mouth once daily. ELIQUIS 5 mg tab(s) Take 1 tablet by mouth two times a day. colestipol (COLESTID) 1 gram tablet Take 1 tablet by mouth once daily. albuterol HFA (VENTOLIN HFA) 90 mcg/actuation inhaler Inhale 2 Puffs as instructed every 4 hours as needed. aspirin 81 mg chewable tablet Take 81 [...] Cigarettes Start date: 09/17/1970 Quit date: 09/17/1980 Year (more content not included)... [facility] 01-26-2025 History of Presen t illness Narrative Patient presents with: Diabetes: A1C right now is 6.8 according to his marielle HPI: Patient presents today for office visit for follow up. Diabetes: Patient denies any low readings. Brings in his marielle which is readding very well. States that he did have a fall today getting out of truck. He just wasn't being careful like he should. Is wearing slide on sandals today. Did see podiatry for his left foot fracture. HTN: breathing is stable. . Denies any swelling. Bp is stable. No chest pain No dizziness. Bp is doing much getter. Still following with cardiology. He did fall getting his scooter off of his vehicle. No head injury. No loc. Has an abrasion on his elbow. No major injury. Is cleaned and covered. Last A1c recently was 7.0 MEDICATIONS: Current Outpatient Medications Medication Sig carvedilol (COREG) 25 mg tablet Take 1 tablet by mouth two times a day. insulin glargine (BASAGLAR KWIKPEN U-100 INSULIN) 100 unit/mL (3 mL) Inject 47 Units subcutaneously daily at bedtime. losartan (COZAAR) 25 mg tablet Take 0.5 tablets by mouth once daily. insulin aspart, niacinamide, (FIASP FLEXTOUCH U-100 INSULIN) 100 unit/mL (3 mL) pen Inject 26 Units subcutaneously three times a day before meals. finasteride (PROSCAR) 5 mg tablet Take 1 tablet by mouth once daily. dilTIAZem CD (CARDIZEM CD, CARTIA XT) 120 mg 24 hr capsule Take 1 capsule by mouth once daily. flecainide (TAMBOCOR) 100 mg tablet Take 100 mg by mouth two times a day. spironolactone (ALDACTONE) 25 mg tablet Take 25 mg by mouth once daily. isosorbide mononitrate ER (IMDUR) 30 mg 24 hr tablet Take 1 tablet by mouth every afternoon. Ordered by cardiology Blood-Glucose Sensor (DEXCOM G7 SENSOR) sayra Apply new sensor every ten (10) days. metFORMIN ER (GLUCOPHAGE XR) 500 mg 24 hr tablet Take 2 tablets by mouth two times a day before meals. furosemide (LASIX) 40 mg tablet Take 1 tablet by mouth once daily. atorvastatin (LIPITOR) 20 mg tablet Take 1 tablet by mouth once daily. Replaces simvastatin OXYGEN, HOME THERAPY, 2 L/min by Nasal Cannula route continuous. famotidine (PEPCID) 20 mg tablet Take 1 tablet by mouth two times a day. OTC NUTRITIONAL SUPPLEMENT NUVOFLEX TURMERIC ORAL Take by mouth. tamsulosin (FLOMAX) 0.4 mg Take 1 capsule by mouth every 12 hours. solifenacin 10 mg tablet Take 1 tablet by mouth every afternoon. empagliflozin (JARDIANCE) 25 mg tablet Take 1 tablet by mouth once daily. Take 1 tablet once daily in the morning cyanocobalamin (VITAMIN B-12) 1,000 mcg tab Take 1 tablet by mouth once daily. ELIQUIS 5 mg tab(s) Take 1 tablet by mouth two times a day. colestipol (COLESTID) 1 gram tablet Take 1 tablet by mouth once daily. albuterol HFA (VENTOLIN HFA) 90 mcg/actuation inhaler Inhale 2 Puffs as instructed every 4 hours as needed. aspirin 81 mg chewable tablet Take 81 [...] date: 09/17/1970 Quit date: 09/17/1980 Years since quittin.3 Smokeless tobacco: Never Vaping Use Vaping status: Never Used Substance Use Topics Alcohol use: No Drug use: No Reviewed current medications, allergies, past medical history, surgical history, family history and social history today. REVIEW OF SYSTEMS All other reviewed and negative other than HPI. HEALTH MAINTENANCE: Reviewed health maintenance issues today and recommended the following in detail. Urine Albumin:Creatinine Ratio due on 11/27/2024 LDL Cholesterol due on 11/27/2024 HbA1C due on 12/09/2024 VITALS: BP 108/64 Pulse 82 Wt 122 kg (269 lb) SpO2 94% BMI 35.49 kg/m Last 4 Encounter Wt Readings: Date: Wt: 01/12/2025 121.6 kg (268 lb) 12/02/2024 123.8 kg (273 lb) 10/31/2024 124.3 kg (274 lb) 09/23/2024 127.9 kg (282 lb) PHYSICAL EXAMINATION: General appearance: Well appearing, alert, in no acute distress, well-hydrated, well nourished. Skin: mild abrasion on elbow. Lungs: Lungs clear to auscultation. No wheezing, rhonchi, rales Heart: RRR without murmur, gallop, or rubs. No ectopy Abdomen: Normal abdominal exam, Abdomen soft, non-tender. Bowel sounds normal. No masses, organomegaly Extremities: No deformities, edema, skin discoloration, clubbing or cyanosis. Good capillary refill. Musculoskeletal: No joint swelling, deformity, or tenderness, elbow appears benign. Red flags for re-assessment reviewed with patient in detail. ASSESSMENT/PLAN: 1. Essential hypertension - ICD9: 401.9, ICD10: I10 (primary diagnosis) - Controlled - Continue current medications 2. Nausea - ICD9: 787.02, ICD10: R11.0 - refille meds. - FAMOTIDINE 20 MG TABLET - doing well. Mathieu Virgen MD documented in this encounter [facility] 01-24-2025 Note HNO ID: [id number] Author: JAMAL MACE, ? Service: ? Author Type: Physician Type: Progress Notes Filed: 01/24/2025 07:08 Note Text: Consultation requested by Dr. Virgen for an opinion regarding fracture of metatarsal. My final recommendations will be communicated back to the requesting physician by way of shared Medical record or letter to requesting physician via US mail. Emma Malone is an 79-year-old male with a history of type 2 diabetes mellitus, presenting for evaluation of left foot fractures. Left Foot Fractures: - Sustained fractures to the left foot after a fall approximately 2-3 weeks ago. - Denies knowing the exact mechanism of the fall. - Initially did not seek immediate medical attention; mentioned the incident to his family doctor, who ordered an X-ray. - X-ray taken on 01/12/2025 revealed minimally displaced fractures of the second, third, and fourth metatarsal necks of the left foot. - Reports feeling something's going on in the foot but denies significant pain. - Unable to obtain a wooden sole shoe due to size availability issues. - Tried using a boot but found it awkward. Type 2 Diabetes Mellitus: - Last HbA1c in May 2024 was 7.4%. - Recent blood glucose readings around 153 mg/dL. - Due for another HbA1c test next week. 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 Stable for years. Sleep apnea 03/31/2009 Pt declined my recs for testing as of 03-25 Current Outpatient Medications Medication Sig Dispense Refill carvedilol (COREG) 25 mg tablet Take 1 tablet by mouth two times a day. 180 tablet 1 insulin glargine (BASAGLAR KWIKPEN U-100 INSULIN) 100 unit/mL (3 mL) Inject 47 Units subcutaneously daily at bedtime. 15 mL 3 losartan (COZAAR) 25 mg tablet Take 0.5 tablets by mouth once daily. 45 tablet 3 insulin aspart, niacinamide, (FIASP FLEXTOUCH U-100 INSULIN) 100 unit/mL (3 mL) pen Inject 26 Units subcutaneously three times a day before meals. 8 Each 11 finasteride (PROSCAR) 5 mg tablet Take 1 tablet by mouth once daily. 90 tablet 3 dilTIAZem CD (CARDIZEM CD, CARTIA XT) 120 mg 24 hr capsule Take 1 capsule by mouth once daily. 90 capsule 3 flecainide (TAMBOCOR) 100 mg tablet Take 100 mg by mouth two times a day. spironolactone (ALDACTONE) 25 mg tablet Take 25 mg by mouth once daily. isosorbide mononitrate ER (IMDUR) 30 mg 24 hr tablet Take 1 tablet by mouth every afternoon. Ordered by cardiology Blood-Glucose Sensor ([employer] G7 SENSOR) sayra Apply new sensor every ten (10) days. 1 Each 1 metFORMIN ER (GLUCOPHAGE XR) 500 mg 24 hr tablet Take 2 tablets by mouth two times a day before meals. 360 tablet 3 furosemide (LASIX) 40 mg tablet Take 1 tablet by mouth once daily. 90 tablet 1 atorvastatin (LIPITOR) 20 mg tablet Take 1 tablet by mouth once daily. Replaces simvastatin 90 tablet 3 OXYGEN, HOME THERAPY, 2 L/min by Nasal Cannula route continuous. 1 Each 11 famotidine (PEPCID) 20 mg tablet Take 1 tablet by mouth two times a day. 180 tablet 1 OTC NUTRITIONAL SUPPLEMENT NUVOFLEX TURMERIC ORAL Take by mouth. tamsulosin (FLOMAX) 0.4 mg Take 1 capsule by mouth every 12 hours. solifenacin 10 mg tablet Take 1 tablet by mouth every afternoon. empagliflozin (JARDIANCE) 25 mg tablet Take 1 tablet by mouth once daily. Take 1 tablet once daily in the morning 30 tablet 0 cyanocobalamin (VITAMIN B-12) 1,000 mcg tab Take 1 tablet by mouth once daily. 30 tablet 5 ELIQUIS 5 mg tab(s) Take 1 tablet by mouth two times a day. 60 tablet 11 colestipol (COLESTID) 1 gram tablet Take 1 tablet by mouth once daily. 90 tablet 3 albuterol HFA (VENTOLIN HFA) 90 mcg/actuation inhaler Inhale 2 Puffs as instructed every 4 hours as needed. 1 Each 1 aspirin 81 mg chewable tablet Take 81 [...] No current facility-administered medications for this visit. Family History Problem Relation Age of Onset Heart Father Hypertension Father Cancer Mother Colon Cancer Sister Cancer Sister Co (more content not included)... [facility] 01-24-2025 History of Presen t illness Narrative Consultation requested by Dr. Virgen for an opinion regarding fracture of metatarsal. My final recommendations will be communicated back to the requesting physician by way of shared Medical record or letter to requesting physician via [place] mail. Emma Malone is an 79-year-old male with a history of type 2 diabetes mellitus, presenting for evaluation of left foot fractures. Left Foot Fractures: - Sustained fractures to the left foot after a fall approximately 2-3 weeks ago. - Denies knowing the exact mechanism of the fall. - Initially did not seek immediate medical attention; mentioned the incident to his family doctor, who ordered an X-ray. - X-ray taken on 01/12/2025 revealed minimally displaced fractures of the second, third, and fourth metatarsal necks of the left foot. - Reports feeling something's going on in the foot but denies significant pain. - Unable to obtain a wooden sole shoe due to size availability issues. - Tried using a boot but found it awkward. Type 2 Diabetes Mellitus: - Last HbA1c in May 2024 was 7.4%. - Recent blood glucose readings around 153 mg/dL. - Due for another HbA1c test next week. 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 Stable for years. Sleep apnea 03/31/2009 Pt declined my recs for testing as of 03-25 Current Outpatient Medications Medication Sig Dispense Refill carvedilol (COREG) 25 mg tablet Take 1 tablet by mouth two times a day. 180 tablet 1 insulin glargine (BASAGLAR KWIKPEN U-100 INSULIN) 100 unit/mL (3 mL) Inject 47 Units subcutaneously daily at bedtime. 15 mL 3 losartan (COZAAR) 25 mg tablet Take 0.5 tablets by mouth once daily. 45 tablet 3 insulin aspart, niacinamide, (FIASP FLEXTOUCH U-100 INSULIN) 100 unit/mL (3 mL) pen Inject 26 Units subcutaneously three times a day before meals. 8 Each 11 finasteride (PROSCAR) 5 mg tablet Take 1 tablet by mouth once daily. 90 tablet 3 dilTIAZem CD (CARDIZEM CD, CARTIA XT) 120 mg 24 hr capsule Take 1 capsule by mouth once daily. 90 capsule 3 flecainide (TAMBOCOR) 100 mg tablet Take 100 mg by mouth two times a day. spironolactone (ALDACTONE) 25 mg tablet Take 25 mg by mouth once daily. isosorbide mononitrate ER (IMDUR) 30 mg 24 hr tablet Take 1 tablet by mouth every afternoon. Ordered by cardiology Blood-Glucose Sensor (DEXCOM G7 SENSOR) sayra Apply new sensor every ten (10) days. 1 Each 1 metFORMIN ER (GLUCOPHAGE XR) 500 mg 24 hr tablet Take 2 tablets by mouth two times a day before meals. 360 tablet 3 furosemide (LASIX) 40 mg tablet Take 1 tablet by mouth once daily. 90 tablet 1 atorvastatin (LIPITOR) 20 mg tablet Take 1 tablet by mouth once daily. Replaces simvastatin 90 tablet 3 OXYGEN, HOME THERAPY, 2 L/min by Nasal Cannula route continuous. 1 Each 11 famotidine (PEPCID) 20 mg tablet Take 1 tablet by mouth two times a day. 180 tablet 1 OTC NUTRITIONAL SUPPLEMENT NUVOFLEX TURMERIC ORAL Take by mouth. tamsulosin (FLOMAX) 0.4 mg Take 1 capsule by mouth every 12 hours. solifenacin 10 mg tablet Take 1 tablet by mouth every afternoon. empagliflozin (JARDIANCE) 25 mg tablet Take 1 tablet by mouth once daily. Take 1 tablet once daily in the morning 30 tablet 0 cyanocobalamin (VITAMIN B-12) 1,000 mcg tab Take 1 tablet by mouth once daily. 30 tablet 5 ELIQUIS 5 mg tab(s) Take 1 tablet by mouth two times a day. 60 tablet 11 colestipol (COLESTID) 1 gram tablet Take 1 tablet by mouth once daily. 90 tablet 3 albuterol HFA (VENTOLIN HFA) 90 mcg/actuation inhaler Inhale 2 Puffs as instructed every 4 hours as needed. 1 Each 1 aspirin 81 mg chewable tablet Take 81 [...] No current facility-administered medications for this visit. Family History Problem Relation Age of Onset Heart Father Hypertension Father Cancer Mother Colon Cancer Sister Cancer Sister Colon Cancer Brother Objective There were no vitals taken for this visit. - Cardiovascular: Dorsalis pedis and posterior tibial pulses palpable bilaterally; capillary refill time <5 seconds; skin temperature warm bilaterally; decreased hair growth. - Musculoskeletal: - Left Foot: - No tenderness to palpation of midfoot; mild swelling noted; moderate bunion deformity noted bilaterally. - Neurological: Protective sensation intact bilaterally; vibratory sensation diminished bilaterally. Labs: - (May 2024) Hemoglobin A1c: 7.4 - Blood sugar: 153 mg/dL Imaging: - (01/12/2025) X-ray of the left foot: Minimally displaced fractures of the second, third, and fourth metatarsal neck. Heel spur noted on the left heel. 1. Closed fracture of foot, unspecified laterality, initial encounter (S92.909A) - X-rays from January 12, 2025, show minimally displaced fractures of the second, third, and fourth metatarsal neck of the left foot; heel spur noted on the left heel. - Mild swelling in the left midfoot; no tenderness to palpation. - Discussed conservative management due to minimal displacement; ordered repeat x-ray today to assess for any changes. - Advised against wearing flip-flops to minimize motion across the fracture site. - Recommended wearing a supportive sneaker (e.g., New Balance, Hoka, Cespedes) if a surgical shoe or boot is not tolerated. - Plan to repeat x-ray in 3 weeks to monitor healing progress. - Educated patient on the importance of protecting the fracture to prevent further displacement. Attestation Recording using [email or web address] software for draft documentation of the visit was discussed with the patient/authorized service support representative; all questions welcomed and answered. Patient/authorized service support representative agreed to proceed Jamal Mace DPM AMB ROOMING INTAKE FLOWSHEET DATA Pain Pain Level: 2 Pain Location: Foot-Left Description: Tenderness Duration Amount of Time: 2 Duration Units: Weeks Frequency: Intermittent Intervention/Comfort measure: Relaxation, Reposition Patient presents with: Left Foot - New, Pain, Swelling, Fracture Pricilla Kuhn LPN documented in this encounter [facility] 01-22-2025 History of Presen t illness Narrative Radiology Service Progress Note PATIENT NAME: Faisal Alarcon DATE OF SERVICE: January 22, 2025 TIME: 4:02 PM PATIENT IDENTITY VERIFICATION COMPLETED USING TWO [...] place to prevent falls during this visit? done on table PATIENT GENDER DATA: Assigned male at PATIENT RELEVANT IMPLANT DATA REVIEWED: Not Applicable PATIENT PRESENTS WITH AN IMPLANTABLE OR ATTACHED BUDGET ASSISTANT: No RADIOLOGY DEPARTMENT: General X-ray: Exam(s) Completed: Lower Extremity X-Ray(s): Foot, Left PERIPHERAL IV DATA: Not applicable SIGNED BY: RT Natalie(Leslee) January 22, 2025 4:02 PM documented in this encounter [facility] 01-22-2025 Note HNO ID: [id number] Author: MALIK LUNA RT(R) Service: Radiology Author Type: Technologist Type: Progress Notes Filed: 01/22/2025 16:12 Note Text: Radiology Service Progress Note PATIENT NAME: Faisal Alarcon DATE OF SERVICE: January 22, 2025 TIME: 4:02 PM PATIENT IDENTITY VERIFICATION COMPLETED USING TWO [...] place to prevent falls during this visit? done on table PATIENT GENDER DATA: Assigned male at PATIENT RELEVANT IMPLANT DATA REVIEWED: Not Applicable PATIENT PRESENTS WITH AN IMPLANTABLE OR ATTACHED BUDGET ASSISTANT: No RADIOLOGY DEPARTMENT: General X-ray: Exam(s) Completed: Lower Extremity X-Ray(s): Foot, Left PERIPHERAL IV DATA: Not applicable SIGNED BY: RT Natalie(R) January 22, 2025 4:02 PM [facility] 01-22-2025 Instructions Jamal Mace - 01/22/2025 3:45 PM EDT Get an x-ray of your left foot today to check the healing of your fractured metatarsal necks. Schedule a repeat x-ray in about 3 weeks for follow?up monitoring of your fracture. Wear supportive, well-fitting footwear--avoid flip-flops or going barefoot--to protect your injured foot, especially as you have diabetes. Continue your usual diabetic foot care, checking your feet regularly and avoiding situations that might lead to injury, given the decreased vibratory sensation noted. documented in this encounter [facility] 01-22-2025 Note HNO ID: [id number] Author: PRICILLA KUHN LPN Service: ? Author Type: LICENSED NURSE Type: Progress Notes Filed: 01/24/2025 07:08 Note Text: AMB ROOMING INTAKE FLOWSHEET DATA Pain Pain Level: 2 Pain Location: Foot-Left Description: Tenderness Duration Amount of Time: 2 Duration Units: Weeks Frequency: Intermittent Intervention/Comfort measure: Relaxation, Reposition Patient presents with: Left Foot - New, Pain, Swelling, Fracture Pricilla Kuhn LPN [facility] 01-22-2025 Telephone encounter Note Jacki with [facility] called in and need the diagnosis the provider put on the CBC for the pathologist interpretation. I let her know it was : Leukocytosis, unspecified type [D72.829] Liyah Monroy RN [facility] 01-22-2025 Miscellaneous Notes Jacki with [facility] called in and need the diagnosis the provider put on the CBC for the pathologist interpretation. I let her know it was : Leukocytosis, unspecified type [D72.829] Liyah Monroy RN documented in this encounter [facility] 01-21-2025 Evaluation note Diagnosis Onset Date Resolution History of atrial fibrillation acute January 21, 2025 2:31pm Hypoxia acute January 21, 2025 2:31pm Obesity (BMI 30-39.9) acute January 21, 2025 2:31pm Obstructive sleep apnea acute M 2024 2:31pm Shortness of breath on exertion acute January 21, 2025 2:31pm Essential (primary) hypertension chronic January 26, 2025 9:38am Nonobstructive atherosclerosis of coronary artery chronic January 26, 2025 9:38am Paroxysmal atrial fibrillation chronic January 26, 2025 9:38am Anemia acute April 08 9:06am History of atrial fibrillation acute April 08, 2025 9:06am Hypoxia acute April 08 9:06am Obesity (BMI 30-39.9) acute Mar 9:06am Obstructive sleep apnea acute J monika2024 9:06am Restrictive lung disease acute April 08, 2025 9:06am Shortness of breath on exertion acute April 08, 2025 9:06am [facility] Work Phone: 1(323) 939-860305-02-2025 Telephone encounter Note* Telephone Encounter - Lulu Walls MA - 01/16/2025 3:35 PM EDT Patients daughter came into office and picked up hard Rx for post op shoe. Lulu Walls MA [facility]05-02-2025 Miscellaneous Notes* Telephone Encounter - Lulu Walls MA - 01/16/2025 3:35 PM EDT Patients daughter came into office and picked up hard Rx for post op shoe. Lulu Walls MA * Telephone Encounter - Mathieu Virgen MD - 01/15/2025 2:13 PM EDT See below. Already wrote for post op shoe that can be obtained here or elsewhere. Script is on thisnote. In addition, she said earlier she had a boot at home. ??? * Telephone Encounter - Liyah Monroy RN - 01/15/2025 12:47 PM EDT Pts daughter Farida called and is notified of providers message and instructions. She voices understanding and states they made and appointment for 01/22/25. She states they told them that Pts PCP has to order shoes for Pt for his insurance [employer] to pay for them. I told her I would send amessage to provider and ask. Please call and advise. Liyah Monroy, NILDA * Telephone Encounter - Mathieu Virgen MD - 01/15/2025 12:04 PM EDT Let her know fractures of this type need followed by a specialist to ensure they heal correctly. * Telephone Encounter - Reanna Cloud - 01/15/2025 8:42 AM EDT Spoke with daughter to schedule podiatry appointments but she has questions re: what the podiatristwould do. Transferred to clinical for assistance. * Telephone Encounter - Reanna Cloud - 01/13/2025 8:28 AM EDT Attempted to contact daughterFarida, but no answer and voicemail full. Should she call back, please schedule podiatry consult. * Telephone Encounter - Lulu Walls MA - 01/13/2025 8:06 AM EDT Spoke with both patient and his daughter Farida. Informed of result. Farida states patient already has a boot at home he can wear. Sending to schedulers for Podiatry consult. Lulu Walls MA * Telephone Encounter - Mathieu Virgen MD - 01/12/2025 7:30 PM EDT Shows a fracture in his foot. See if can get into podiatry. See if we can get him in a post op shoe. [facility] Telephone encounter Note * Telephone Encounter - Mathieu Virgen MD - 01/15/2025 2:13 PM EDT See below. Already wrote for post op shoe that can be obtained here or elsewhere. Script is on thisnote. In addition, she said earlier she had a boot at home. ??? [facility]05-01-2025 Telephone encounter Note* Telephone Encounter - Liyah Monroy RN - 01/15/2025 12:47 PM EDT Pts daughter Farida called and is notified of providers message and instructions. She voices understanding and states they made and appointment for 01/22/25. She states they told them that Pts PCP has to order shoes for Pt for his insurance [employer] to pay for them. I told her I would send amessage to provider and ask. Please call and advise. iLyah Monroy RN [facility]05-01-2025 Telephone encounter Note* Telephone Encounter - Mathieu Virgen MD - 01/15/2025 12:04 PM EDT Let her know fractures of this type need followed by a specialist to ensure they heal correctly. [facility]05-01-2025 Telephone encounter Note* Telephone Encounter - Reanna Cloud - 01/15/2025 8:42 AM EDT Spoke with daughter to schedule podiatry appointments but she has questions re: what the podiatristwould do. Transferred to [facility] for assistance. [facility]04-29-2025 Telephone encounter Note* Telephone Encounter - Reanna Colud - 01/13/2025 8:28 AM EDT Attempted to contact daughter, Farida, but no answer and voicemail full. Should she call back, please schedule podiatry consult. [facility]04-29-2025 Telephone encounter Note* Telephone Encounter - Lulu Walls MA - 01/13/2025 8:06 AM EDT Spoke with both patient and his daughter Farida. Informed of result. Farida states patient already has a boot at home he can wear. Sending to schedulers for Podiatry consult. Lulu Walls MA [facility]04-29-2025 Miscellaneous Notes* Telephone Encounter - Julianna Lynn LPN - 01/13/2025 7:03 AM EDT Prescription Refill Information The patient has been identified by name and date of : Yes Caregiver verified no other encounters exist for this prescription request: Yes Caregiver confirmed with patient/requestor that no other refills are due, in the near future, with this provider at this time: Yes The last office visit in the department: 01/12/2025 Does the patient have a future office visit with this provider/department: Yes Requested Prescriptions Pending Prescriptions Disp Refills carvedilol (COREG) 25 mg tablet 180 tablet 1 Sig: Take 1 tablet by mouth two times a day. Julianna Lynn LPN January 13, 2025 7:03 AM [facility] Telephone encounter Note * Telephone Encounter - Julianna Lynn LPN - 01/13/2025 7:03 AM EDT Prescription Refill Information The patient has been identified by name and date of : Yes Caregiver verified no other encounters exist for this prescription request: Yes Caregiver confirmed with patient/requestor that no other refills are due, in the near future, with this provider at this time: Yes The last office visit in the department: 01/12/2025 Does the patient have a future office visit with this provider/department: Yes Requested Prescriptions Pending Prescriptions Disp Refills carvedilol (COREG) 25 mg tablet 180 tablet 1 Sig: Take 1 tablet by mouth two times a day. Julianna Lynn LPN January 13, 2025 7:03 AM [facility]04-28-2025 Telephone encounter Note* Telephone Encounter - Mathieu Virgen MD - 01/12/2025 7:30 PM EDT Shows a fracture in his foot. See if can get into podiatry. See if we can get him in a post op shoe. [facility]04-28[facility] History of Present illness Narrative* Malik Luna RT(R) - 01/12/2025 5:30 PM EDT Radiology Service Progress Note PATIENT NAME: Faisal Alarcon DATE OF SERVICE: January 12, 2025 TIME: 5:23 PM PATIENT IDENTITY VERIFICATION COMPLETED USING TWO (2) IDENTIFIERS: Name and Date of confirmedby patient verbally. FALL SCREENING: Has the patient had 2 falls in the last year or 1 fall with injury or currently using an Ambulatory Assistive Device (Walker, Cane, Wheelchair, Crutches, etc.)? Yes, Patient High Riskfor Falls What interventions were put in place to prevent falls during this visit? Instructed Patient to Remain Seated (Not on Exam Table) Until Exam and Increased Observations by Caregivers PATIENT GENDER DATA: Assigned male at PATIENT RELEVANT IMPLANT DATA REVIEWED: Not Applicable PATIENT PRESENTS WITH AN IMPLANTABLE OR ATTACHED BUDGET ASSISTANT: No RADIOLOGY DEPARTMENT: General X-ray: Exam(s) Completed: Lower Extremity X- Ray(s): Foot, Left PERIPHERAL IV DATA: Not applicable SIGNED BY: RT Natalie(R) January 12, 2025 5:23 PM documented [facility] encounter[facility] NoteHNO ID: [id number] Author: MALIK LUNA RT(R) Service: Radiology Author Type: Technologist Type: Progress Notes Filed: 01/12/2025 17:32 Note Text: Radiology Service Progress Note PATIENT NAME: Faisal Alarcon DATE OF SERVICE: January 12, 2025 TIME: 5:23 PM PATIENT IDENTITY VERIFICATION COMPLETED USING TWO [...] Seated (Not on Exam Table) Until Exam and Increased Observations by Caregivers PATIENT GENDER DATA: Assigned male at PATIENT RELEVANT IMPLANT DATA REVIEWED: Not Applicable PATIENT PRESENTS WITH AN IMPLANTABLE OR ATTACHED BUDGET ASSISTANT: No RADIOLOGY DEPARTMENT: General X-ray: Exam(s) Completed: Lower Extremity X-Ray(s): Foot, Left PERIPHERAL IV DATA: Not applicable SIGNED BY: RT Natalie(R) January 12, 2025 5:23 [facility]04-28-2025 NoteHNO ID: [id number] Author: MATHIEU VIRGEN MD Service: ? Author Type: Physician Type: Progress Notes Filed: 01/12/2025 17:13 Note Text: Patient presents with: Pain (foot): Left foot. Red and swollen. Has been that way for awhile. Has really improved from what it was. Recalls no injury. HPI: Patient presents today for office visit for follow up. Had a fall a week ago. Is much better now. He noted his foot was swollen and red after. He had tripped over cats that he has. Had issues moving his toes. Can bear weight on it. Looks much better or feels much better than it was. Did not check for warmth. No fever. Ankle is fine. No head injury or LOC. Just elevated it. No treatment given. MEDICATIONS: Current Outpatient Medications Medication Sig insulin glargine (BASAGLAR KWIKPEN U-100 INSULIN) 100 unit/mL (3 mL) Inject 47 Units subcutaneously daily at bedtime. losartan (COZAAR) 25 mg tablet Take 0.5 tablets by mouth once daily. insulin aspart, niacinamide, (FIASP FLEXTOUCH U-100 INSULIN) 100 unit/mL (3 mL) pen Inject 26 Units subcutaneously three times a day before meals. finasteride (PROSCAR) 5 mg tablet Take 1 tablet by mouth once daily. dilTIAZem CD (CARDIZEM CD, CARTIA XT) 120 mg 24 hr capsule Take 1 capsule by mouth once daily. flecainide (TAMBOCOR) 100 mg tablet Take 100 mg by mouth two times a day. spironolactone (ALDACTONE) 25 mg tablet Take 25 mg by mouth once daily. isosorbide mononitrate ER (IMDUR) 30 mg 24 hr tablet Take 1 tablet by mouth every afternoon. Ordered by cardiology Blood-Glucose Sensor (DEXCOM G7 SENSOR) sayra Apply new sensor every ten (10) days. metFORMIN ER (GLUCOPHAGE XR) 500 mg 24 hr tablet Take 2 tablets by mouth two times a day before meals. furosemide (LASIX) 40 mg tablet Take 1 tablet by mouth once daily. atorvastatin (LIPITOR) 20 mg tablet Take 1 tablet by mouth once daily. Replaces simvastatin OXYGEN, HOME THERAPY, 2 L/min by Nasal Cannula route continuous. famotidine (PEPCID) 20 mg tablet Take 1 tablet by mouth two times a day. OTC NUTRITIONAL SUPPLEMENT NUVOFLEX TURMERIC ORAL Take by mouth. tamsulosin (FLOMAX) 0.4 mg Take 1 capsule by mouth every 12 hours. solifenacin 10 mg tablet Take 1 tablet by mouth every afternoon. empagliflozin (JARDIANCE) 25 mg tablet Take 1 tablet by mouth once daily. Take 1 tablet once daily in the morning cyanocobalamin (VITAMIN B-12) 1,000 mcg tab Take 1 tablet by mouth once daily. carvedilol (COREG) 25 mg tablet Take 1 tablet by mouth two times a day. ELIQUIS 5 mg tab(s) Take 1 tablet by mouth two times a day. colestipol (COLESTID) 1 gram tablet Take 1 tablet by mouth once daily. albuterol HFA (VENTOLIN HFA) 90 mcg/actuation inhaler Inhale 2 Puffs as instructed every 4 hours as needed. aspirin 81 mg chewable tablet Take 81 [...] date: 09/17/1970 Quit date: 09/17/1980 Years since quittin.3 Smokeless tobacco: Never Vaping Use Vaping status: Never Used Substance Use Topics Alcohol use: No Drug use: No Reviewed current medications, allergie (more content not included)...[facility]04-28-2025 History of Present illness Narrative* Mathieu Virgen MD - 01/12/2025 5:06 PM EDT Patient presents with: Pain (foot): Left foot. Red and swollen. Has been that way for awhile. Has really improved from what it was. Recalls no injury. HPI: Patient presents today for office visit for follow up. Had a fall a week ago. Is much better now. He noted his foot was swollen and red after. He had tripped over cats that he has. Had issues moving his toes. Can bear weight on it. Looks much better or feels much better than it was. Did not check for warmth. No fever. Ankle is fine. No head injury or LOC. Just elevated it. No treatment given. MEDICATIONS: Current Outpatient Medications Medication Sig insulin glargine (BASAGLAR KWIKPEN U-100 INSULIN) 100 unit/mL (3 mL) Inject 47 Units subcutaneouslydaily at bedtime. losartan (COZAAR) 25 mg tablet Take 0.5 tablets by mouth once daily. insulin aspart, niacinamide, (FIASP FLEXTOUCH U-100 INSULIN) 100 unit/mL (3 mL) pen Inject 26 Unitssubcutaneously three times a day before meals. finasteride (PROSCAR) 5 mg tablet Take 1 tablet by mouth once daily. dilTIAZem CD (CARDIZEM CD, CARTIA XT) 120 mg 24 hr capsule Take 1 capsule by mouth once daily. flecainide (TAMBOCOR) 100 mg tablet Take 100 mg by mouth two times a day. spironolactone (ALDACTONE) 25 mg tablet Take 25 mg by mouth once daily. isosorbide mononitrate ER (IMDUR) 30 mg 24 hr tablet Take 1 tablet by mouth every afternoon. Ordered by cardiology Blood-Glucose Sensor (DEXCOM G7 SENSOR) sayra Apply new sensor every ten (10) days. metFORMIN ER (GLUCOPHAGE XR) 500 mg 24 hr tablet Take 2 tablets by mouth two times a day before meals. furosemide (LASIX) 40 mg tablet Take 1 tablet by mouth once daily. atorvastatin (LIPITOR) 20 mg tablet Take 1 tablet by mouth once daily. Replaces simvastatin OXYGEN, HOME THERAPY, 2 L/min by Nasal Cannula route continuous. famotidine (PEPCID) 20 mg tablet Take 1 tablet by mouth two times a day. OTC NUTRITIONAL SUPPLEMENT NUVOFLEX TURMERIC ORAL Take by mouth. tamsulosin (FLOMAX) 0.4 mg Take 1 capsule by mouth every 12 hours. solifenacin 10 mg tablet Take 1 tablet by mouth every afternoon. empagliflozin (JARDIANCE) 25 mg tablet Take 1 tablet by mouth once daily. Take 1 tablet once daily in the morning cyanocobalamin (VITAMIN B-12) 1,000 mcg tab Take 1 tablet by mouth once daily. carvedilol (COREG) 25 mg tablet Take 1 tablet by mouth two times a day. ELIQUIS 5 mg tab(s) Take 1 tablet by mouth two times a day. colestipol (COLESTID) 1 gram tablet Take 1 tablet by mouth once daily. albuterol HFA (VENTOLIN HFA) 90 mcg/actuation inhaler Inhale 2 Puffs as instructed every 4 hours asneeded. aspirin 81 mg chewable tablet Take 81 [...] date: 09/17/1970 Quit date: 09/17/1980 Years since quittin.3 Smokeless tobacco: Never Vaping Use Vaping status: Never Used Substance Use Topics Alcohol use: No Drug use: No Reviewed current medications, allergies, past medical history, surgical history, family history andsocial history today. REVIEW OF SYSTEMS All other reviewed and negative other than HPI. VITALS: BP 112/62 Pulse 77 Wt 121.6 kg (268 lb) SpO2 93% BMI 35.36 kg/m Last 4 Encounter Wt Readings: Date: Wt: 01/12/2025 121.6 kg (268 lb) 12/02/2024 123.8 kg (273 lb) 10/31/2024 124.3 kg (274 lb) 09/23/2024 127.9 kg (282 lb) PHYSICAL EXAMINATION: General appearance: Well appearing, alert, in no acute distress, well-hydrated, well nourished. Skin: Skin color, texture, turgor normal, no suspicious rashes or lesions Extremities: dorsum of foot shows mild swelling. He has some bruising extending into the toes. No warmth. Slightly pink. Does not look infected. Normal range of motion. No calf tenderness or nusrat's ASSESSMENT/PLAN: 1. Contusion of left foot, subsequent encounter - ICD9: V58.89, 924.20, ICD10: S90.32XD (primary diagnosis) - ice and elevate Get xray. Red flags for re-assessment reviewed with patient in detail. - XR FOOT GENERAL 3V AP/LAT/OBL LEFT 2. Foot pain, left - ICD9: 729.5, ICD10: M79.672 - XR FOOT GENERAL 3V AP/LAT/OBL LEFT Mathieu Virgen MD documented [facility] Evaluation note* Diagnosis Onset Date Resolution Status Admit Date Essential (primary) hypertension [facility] December 11, 2024 1:09pm 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 December 11, 2024 1:09pm Paroxysmal atrial fibrillation [facility] December 11, 2024 1:09pm History of atrial fibrillation acute January 21, 2025 2:31pm Hypoxia acute January 21, 2025 2:31pm Obesity (BMI 30-39.9) acute January 21, 2025 2:31pm Obstructive sleep apnea acute M 2024 2:31pm Shortness of breath on exertion acut e January 21, 2025 2:31pm Essential (primary) hypertension [facility] on January 26, 2025 9:38am 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 January 26, 2025 9 :38am Paroxysmal atrial fibrillation chron ic January 26, 2025 9:38am [facility] Work Phone: 1(971) 120-121403-27-2025 Evaluation note* Diagnosis Onset Date Resolution Status Admit Date Essential (primary) hypertension [facility] on December 11, 2024 1:09pm 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 December 11, 2024 1:09pm Paroxysmal atrial fibrillation chron ic December 11, 2024 1:09pm History of atrial fibrillation acute January 21, 2025 2:31pm Hypoxia acute January 21, 2025 2:31pm Obesity (BMI 30-39.9) acute January 21, 2025 2:31pm Obstructive sleep apnea acute M 2024 2:31pm Shortness of breath on exertion acut e January 21, 2025 2:31pm Essential (primary) hypertension chr onic January 26, 2025 9:38am 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 January 26, 2025 9 :38am Paroxysmal atrial fibrillation chron ic January 26, 2025 9:38am History of atrial fibrillation acute April 08, 2025 9:06am Hypoxia acute April 08 9:06am Obesity (BMI 30-39.9) acute Louis y 2024 9:06am Obstructive sleep apnea acute J monika 2024 9:06am Shortness of breath on exertion acut e April 08, 2025 9:06am [email or web address] [email or web address] Work Phone: 1(287) 508-6802947859-49-2018 Telephone encounter Note* Telephone Encounter - Tonia Ellis LPN - 12/04/2024 4:20 PM EDT Pt and caregiver notified via [employer]. [facility]03-20-2025 Miscellaneous Notes* Telephone Encounter - Tonia Ellis LPN - 12/04/2024 4:20 PM EDT Pt and caregiver notified via [employer]. * Telephone Encounter - Tonia Ellis LPN - 12/04/2024 11:51 AM EDT Rec'd and in scanned documents. Pharmacy notified. * Telephone Encounter - Reanna Brannon RN - 12/04/2024 11:17 AM EDT Medardo from [employer] calls and reports that patient's medication is approved until 09/06/2025. CaseNumber: [id number] Medardo is faxing over approval letter. Reanna Brannon RN * Telephone Encounter - Aly Mandel MA - 12/03/2024 5:55 PM EDT Received PA from pharmacy for Fiasp Flextouch. Tried to complete through [employer]mymeds but was instructed to call [employer] at . Spoke to [facility] who will submit info to pharmacy for PA. Aly Mandel MA documented in this encounterTri[facility] Telephone encounter Note * Telephone Encounter - Tonia Ellis LPN - 12/04/2024 11:51 AM EDT Rec'd and in scanned documents. Pharmacy notified. [facility]03-20-2025 Telephone encounter Note* Telephone Encounter - Reanna Brannon RN - 12/04/2024 11:17 AM EDT Medardo from [employer] calls and reports that patient's medication is approved until 09/06/2025. CaseNumber: [id number] Medardo is faxing over approval letter. Reanna Brannon RN [facility]03-19-2025 Telephone encounter Note* Telephone Encounter - Aly Mandel MA - 12/03/2024 5:55 PM EDT Received PA from pharmacy for Fiasp Flextouch. Tried to complete through [employer]mymeds but was instructed to call [employer] at . Spoke to rep who will submit info to pharmacy for PA. Aly Mandel MA [facility]03-18-2025 NoteHNO ID: [id number] Author: MATHIEU VIRGEN MD Service: ? Author Type: Physician Type: Progress Notes Filed: 12/02/2024 17:17 Note Text: Patient presents with: Follow Up HPI: Patient presents today for office visit for medication reconciliation per insurance. Labs done. Reviewed overall ar stable. His bmp is stable with gfr of 62. A1c is 7.0. lipids are good. White count is slightly up at 12. Has been following with [facility]. Seeing pulmonary. Uro: follows with Dr Daley. White count has been slightly minimally for the last year up and down. Now using bipap. He is still having some low sugars at night. They changed his basaglar to in the am. Is taking 50 mg of basaglar. Humalog is 26 units tid. Daughter wants to switch him to fiasp that is rapid acting. We discussed limiting hypoglycemic spells. Now diagnosed with diabetic retinopathy. Edema is doing or weight gain. No new shortness of breath. No chest pain. Pharmacist had called concerned that they were not following up on labs and meds etc which is not correct. Daughter is very involved and very much updated on his health. He has seen his specialist. Has seen Sukh recently in [place] and is up to date on labs. His sugar control and labs are very good. Bp has continued to be tight. No symptoms. We talked about decreasing his meds slightly . MEDICATIONS: Current Outpatient Medications Medication Sig finasteride (PROSCAR) 5 mg tablet Take 1 tablet by mouth once daily. dilTIAZem CD (CARDIZEM CD, CARTIA XT) 120 mg 24 hr capsule Take 1 capsule by mouth once daily. flecainide (TAMBOCOR) 100 mg tablet Take 100 mg by mouth two times a day. losartan (COZAAR) 25 mg tablet Take 1 tablet by mouth once daily. spironolactone (ALDACTONE) 25 mg tablet Take 25 mg by mouth once daily. isosorbide mononitrate ER (IMDUR) 30 mg 24 hr tablet Take 1 tablet by mouth every afternoon. Ordered by cardiology Blood-Glucose Sensor (DEXCOM G7 SENSOR) sayra Apply new sensor every ten (10) days. metFORMIN ER (GLUCOPHAGE XR) 500 mg 24 hr tablet Take 2 tablets by mouth two times a day before meals. furosemide (LASIX) 40 mg tablet Take 1 tablet by mouth once daily. atorvastatin (LIPITOR) 20 mg tablet Take 1 tablet by mouth once daily. Replaces simvastatin OXYGEN, HOME THERAPY, 2 L/min by Nasal Cannula route continuous. famotidine (PEPCID) 20 mg tablet Take 1 tablet by mouth two times a day. OTC NUTRITIONAL SUPPLEMENT NUVOFLEX TURMERIC ORAL Take by mouth. tamsulosin (FLOMAX) 0.4 mg Take 1 capsule by mouth every 12 hours. solifenacin 10 mg tablet Take 1 tablet by mouth every afternoon. empagliflozin (JARDIANCE) 25 mg tablet Take 1 tablet by mouth once daily. Take 1 tablet once daily in the morning cyanocobalamin (VITAMIN B-12) 1,000 mcg tab Take 1 tablet by mouth once daily. carvedilol (COREG) 25 mg tablet Take 1 tablet by mouth two times a day. ELIQUIS 5 mg tab(s) Take 1 tablet by mouth two times a day. colestipol (COLESTID) 1 gram tablet Take 1 tablet by mouth once daily. albuterol HFA (VENTOLIN HFA) 90 mcg/actuation inhaler Inhale 2 Puffs as instructed every 4 hours as needed. insulin lispro (HUMALOG KWIKPEN INSULIN) 100 unit/mL Inject 20 Units subcutaneously three times a day before meals. Getting through [facility] insulin glargine (BASAGLAR KWIKPEN U-100 INSULIN) 100 unit/mL (3 mL) Inject 90 Units subcutaneously daily at bedtime. aspirin 81 mg chewable [...] mouth every 12 hours. Prescribed by outside envelope folder No current facility-administered medications for this visit. [...] Cystoscopy and cystolitholapaxy and laser of bladder (more content not included)...[facility]03-18-2025 History of Present illness Narrative* Mathieu Virgen MD - 12/02/2024 3:36 PM EDT Patient presents with: Follow Up HPI: Patient presents today for office visit for medication reconciliation per insurance. Labs done. Reviewed overall ar stable. His bmp is stable with gfr of 62. A1c is 7.0. lipids are good. White count is slightly up at 12. Has been following with [facility]. Seeing pulmonary. Uro: follows with Dr Daley. White count has been slightly minimally for the last year up and down. Now using bipap. He is still having some low sugars at night. They changed his basaglar to in the am. Is taking 50 mg of basaglar. Humalog is 26 units tid. Daughter wants to switch him to fiasp that is rapid acting. We discussed limiting hypoglycemic spells. Now diagnosed with diabetic retinopathy. Edema is doing or weight gain. No new shortness of breath. No chest pain. Pharmacist had called concerned that they were not following up on labs and meds etc which is not correct. Daughter is very involved and very much updated on his health. He has seen his specialist. Has seen Sukh recently in and is up to date on labs. His sugar control and labs are very good. Bp has continued to be tight. No symptoms. We talked about decreasing his meds slightly . MEDICATIONS: Current Outpatient Medications Medication Sig finasteride (PROSCAR) 5 mg tablet Take 1 tablet by mouth once daily. dilTIAZem CD (CARDIZEM CD, CARTIA XT) 120 mg 24 hr capsule Take 1 capsule by mouth once daily. flecainide (TAMBOCOR) 100 mg tablet Take 100 mg by mouth two times a day. losartan (COZAAR) 25 mg tablet Take 1 tablet by mouth once daily. spironolactone (ALDACTONE) 25 mg tablet Take 25 mg by mouth once daily. isosorbide mononitrate ER (IMDUR) 30 mg 24 hr tablet Take 1 tablet by mouth every afternoon. Ordered by cardiology Blood-Glucose Sensor (DEXCOM G7 SENSOR) sayra Apply new sensor every ten (10) days. metFORMIN ER (GLUCOPHAGE XR) 500 mg 24 hr tablet Take 2 tablets by mouth two times a day before meals. furosemide (LASIX) 40 mg tablet Take 1 tablet by mouth once daily. atorvastatin (LIPITOR) 20 mg tablet Take 1 tablet by mouth once daily. Replaces simvastatin OXYGEN, HOME THERAPY, 2 L/min by Nasal Cannula route continuous. famotidine (PEPCID) 20 mg tablet Take 1 tablet by mouth two times a day. OTC NUTRITIONAL SUPPLEMENT NUVOFLEX TURMERIC ORAL Take by mouth. tamsulosin (FLOMAX) 0.4 mg Take 1 capsule by mouth every 12 hours. solifenacin 10 mg tablet Take 1 tablet by mouth every afternoon. empagliflozin (JARDIANCE) 25 mg tablet Take 1 tablet by mouth once daily. Take 1 tablet once daily in the morning cyanocobalamin (VITAMIN B-12) 1,000 mcg tab Take 1 tablet by mouth once daily. carvedilol (COREG) 25 mg tablet Take 1 tablet by mouth two times a day. ELIQUIS 5 mg tab(s) Take 1 tablet by mouth two times a day. colestipol (COLESTID) 1 gram tablet Take 1 tablet by mouth once daily. albuterol HFA (VENTOLIN HFA) 90 mcg/actuation inhaler Inhale 2 Puffs as instructed every 4 hours asneeded. insulin lispro (HUMALOG KWIKPEN INSULIN) 100 unit/mL Inject 20 Units subcutaneously three times a day before meals. Getting through [facility] insulin glargine (BASAGLAR KWIKPEN U-100 INSULIN) 100 unit/mL (3 mL) Inject 90 Units subcutaneouslydaily at bedtime. aspirin 81 mg chewable tablet [...] mouth every 12 hours. Prescribed by outside envelope folder No current facility-administered medications for this visit. [...] date: 09/17/1970 Quit date: 09/17/1980 Years since quittin.2 Smokeless tobacco: Never Vaping Use Vaping status: Never Used Substance Use Topics Alcohol use: No Drug use: No Reviewed current medications, allergies, past medical history, surgical history, family history andsocial history today. REVIEW OF SYSTEMS All other reviewed and negative other than HPI. HEALTH MAINTENANCE: Reviewed health maintenance issues today and recommended the following in detail. RSV Vaccine(1 - 1-dose 75+ series) Never done Depression Screening due on 12/24/2024 Anxiety Screening due on 12/24/2024 Has hx of colon polyps. We discussed that once he is further out from recent issues, we can discusswhether or not he wishes to continue to pursue screening given his age. VITALS: BP 92/54 Pulse 78 Ht 185.4 cm (6' 1) Wt 123.8 kg (273 lb) SpO2 95% BMI 36.02 kg/m Last 4 Encounter Wt Readings: Date: Wt: 10/31/2024 124.3 kg (274 lb) 09/23/2024 127.9 kg (282 lb) 07/29/2024 135.2 kg (298 lb) 06/23/2024 136 kg (299 lb 13.2 oz) PHYSICAL EXAMINATION: General appearance: Well appearing, [...] Peripheral pulses: Normal Neuro: Negative. ASSESSMENT/PLAN: 1. Acute diastolic CHF (congestive heart failure) (HCC) - ICD9: 428.31, 428.0, ICD10: I50.31 (primary diagnosis) - no signs of overload. Overall is well compensated. Follow with cardiolgy. Continue current meds. 2. Psoriatic arthritis (HCC) - ICD9: 696.0, ICD10: L40.50 - stable. 3. Schizophrenia, chronic condition (HCC) - ICD9: 295.62, ICD10: F20.9 - doing well. No complaints. 4. 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, macularedema presence unspecified, unspecified laterality (HCC) - ICD9: 250.50, 362.05, ICD10: E11.3399 - following with optho. Discussed decreasing his basaglar slightly to avoid hypoglycemia. Switched to fiasp short acting insulin at daughter's request. Call sugars in two weeks. 5. Paroxysmal atrial fibrillation (HCC) - ICD9: 427.31, ICD10: I48.0 - stable. No signs of issues with meds. 6. Mixed hyperlipidemia - ICD9: 272.2, ICD10: E78.2 - Controlled - Continue current medications 7. Sleep apnea, unspecified type - ICD9: 780.57, ICD10: G47.30 - stable. On bipap 8. Restrictive lung disease - ICD9: 518.89, ICD10: J98.4 - no issues. 9. 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 - BASAGLAR KWIKPEN U-100 INSULIN 100 UNIT/ML (3 ML) SUBCUTANEOUS 10. History of bladder cancer - ICD9: V10.51, ICD10: Z85.51 - per urology 11. Chronic anticoagulation - ICD9: V58.61, ICD10: Z79.01 - stable. 12. Malignant neoplasm of urinary bladder, unspecified site (HCC) - ICD9: 188.9, ICD10: C67.9 No issues. 13. 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 Encounter for screening examination for other mental health and behavioral disorders - ICD9: V79.8, ICD10: Z13.39 - ANXIETY SCREENING 15. Screening for depression - ICD9: V79.0, ICD10: Z13.31 - DEPRESSION SCREENING 16. Leukocytosis, unspecified type - ICD9: 288.60, ICD10: D72.829 - PATHOLOGIST INTERPRETATION WITH CBC AND DIFF 17. Essential hypertension - ICD9: 401.9, ICD10: I10 - very tightly controlled. - Continue current medications - LOSARTAN 25 MG TABLET-cut dose to 12.5 mg a day. Recheck in four to six week or prn Mathieu Virgen documented in this encounterTri[facility] Telephone encounter Note * Telephone Encounter - Mathieu Virgen MD - 11/29/2024 9:18 AM EDT Reviewed. Coming on . Await appt [facility]03-15-2025 Miscellaneous Notes* Telephone Encounter - Mathieu Virgen MD - 11/29/2024 9:18 AM EDT Reviewed. Coming on . Await appt * Telephone Encounter - Miley Pemberton MA - 11/28/2024 4:55 PM EDT Pt had blood work done. View External Labs - Chemistry [ID [id number]] View External Labs - Miscellaneous Lab [ID [id number]] View External Labs - Chemistry [ID [id number]] Miley Pemberton MA documented in this encounterTrihealth [facility]03-[facility] Telephone encounter Note * Telephone Encounter - Miley Pemberton MA - 11/28/2024 4:55 PM EDT Pt had blood work done. View External Labs - Chemistry [ID [id number]] View External Labs - Miscellaneous Lab [ID [id number]] View External Labs - Chemistry [ID [id number]] Miley Pemberton MA [facility]03-13-2025 Telephone encounter Note* Telephone Encounter - Jaylene Henley LPN - 11/27/2024 11:40 AM EDT Left message for Farida that lab orders have been placed. [facility]03-13-2025 Miscellaneous Notes* Telephone Encounter - Jaylene Henley LPN - 11/27/2024 11:40 AM EDT Left message for Afrida that lab orders have been placed. * Telephone Encounter - Mathieu Virgen MD - 11/27/2024 11:37 AM EDT ordered * Telephone Encounter - Jaylene Henley LPN - 11/27/2024 11:30 AM EDT Labs pending to review and file. * Telephone Encounter - Reanna Cloud - 11/27/2024 9:52 AM EDT Patient and daughter are here for labs and MyChart is stating that the patinet is due for an Urine Albumin:Creatinine Ration, A1C and LDL Cholesterol but those orders are not in the patient's chart. Patient/daughter want them done today while they are here. Please assist. Reanna Cloud documented in this encounterTrihealth [facility]03-[facility] Telephone encounter Note * Telephone Encounter - Mathieu Virgen MD - 11/27/2024 11:37 AM EDT ordered [facility]03-13-2025 Telephone encounter Note* Telephone Encounter - Jaylene Henley LPN - 11/27/2024 11:30 AM EDT Labs pending to review and file. [facility]03-13-2025 Telephone encounter Note* Telephone Encounter - Reanna Cloud - 11/27/2024 9:52 AM EDT Patient and daughter are here for labs and MyChart is stating that the patinet is due for an Urine Albumin:Creatinine Ration, A1C and LDL Cholesterol but those orders are not in the patient's chart. Patient/daughter want them done today while they are here. Please assist. Reanna Cloud [facility]03-12-2025 Telephone encounter Note* Telephone Encounter - Jaylene Henley LPN - 11/26/2024 5:17 PM EDT Left detailed message on personalized voicemail. [facility]03-12-2025 Miscellaneous Notes* Telephone Encounter - Jaylene Henley LPN - 11/26/2024 5:17 PM EDT Left detailed message on personalized voicemail. * Telephone Encounter - Mathieu Virgen MD - 11/26/2024 5:07 PM EDT I am assuming he is taking it once a day. Rx sent * Telephone Encounter - Tierra Crawford RN - 11/26/2024 3:58 PM EDT patient daughter is calling in stating that Dr Daley left the office today without filling patients finasteride. daughter is requesting that pcp fill the medication for patient. please review and advise. if ok rx [facility] daughter needs called with information documented in this encounterTrihealth [facility]03[facility] Telephone encounter Note * Telephone Encounter - Mathieu Virgen MD - 11/26/2024 5:07 PM EDT I am assuming he is taking it once a day. Rx sent [facility]03-12-2025 Telephone encounter Note* Telephone Encounter - Tierra Crawford RN - 11/26/2024 3:58 PM EDT patient daughter is calling in stating that Dr Daley left the office today without filling patients finasteride. daughter is requesting that pcp fill the medication for patient. please review and advise. if ok [facility] daughter needs called with information [facility]03-10-2025 Telephone encounter Note* Telephone Encounter - Janet King MA - 11/24/2024 10:44 AM EDT Scheduled 12/02/24 [facility]03-10-2025 Miscellaneous Notes* Telephone Encounter - Janet King MA - 11/24/2024 10:44 AM EDT Scheduled 12/02/24 * Telephone Encounter - Lulu Walls MA - 11/13/2024 2:46 PM EST Message left for daughter Farida to call back to schedule sooner appointment. Lulu Walls MA * Telephone Encounter - Mathieu Virgen MD - 11/12/2024 4:52 PM EST See if we can get him in sooner. * Telephone Encounter - Lulu Walls MA - 11/12/2024 4:50 PM EST Has an appointment 12/19/24. Is that out too far? * Telephone Encounter - Mathieu Virgen MD - 11/12/2024 3:33 PM EST Looks like we were updated on all but the most recent med changes. He has been following aggressively with his labs etc. Most of his med changes are due to his recent cardiac changes and per cardiology. As far as his solifenacin. I do not prescribe that. That should be addressed with the writing provider. I would recommend he stop tumeric and nuvoflex. He literally was just seen by one of our providers who went over everything in the last two weeks See if we can get him into see me in a few weeks * Telephone Encounter - Tammy Davies LPN - 11/12/2024 2:31 PM EST Rem from [facility] pharmacist calling patient daughter told her that her father is taking Aspirin 81 mg daily and he is also taking Eliquis 5 mg one tablet twice daily, he is also taking tumeric 500 mg 2 capsules daily, Nuvoflex daily, a joint supplement she is not familiar with. She is concerned since he has lots of medications and lots of providers he is seeing, not sure providers know all the medications he is taking? Patient insurance is making her talk to nurse in PCP office at length about this, having possible medication interactions causing QT elongation and risk of AV block with taking the Solifenacin 10 mg daily and a few others. She is concerned patient daughter is not keeping providers up to date with mediation changes, his Basaglar insulin dose is 50 mg and his Humalog insulin dose is 26 units 3 times daily, Colestipol 1 gram patient is taking as needed but is daughter keeping away from when he is taking other medications. Taking Flecainide 100 mg one tablet twice daily, started on Spironolactone 25 mg once daily, taken off the Potassium, Furosemide dropped to 40 mg once daily, Losartan 25 mg daily. She said his daughter is not checking his blood pressure readings and his blood sugars and getting his lab work done more frequently to monitor his kidneys. She is hoping patient may get more monitoring done with his m edications. She plans to call office back tomorrow to see what PCP says with all of this. Please advise documented in this encounterTrihealth [facility]03-[facility] Telephone encounter Note * Telephone Encounter - Janet King MA - 11/24/2024 10:16 AM EDT Next visit 12/02/24 [facility]03-10-2025 Miscellaneous Notes* Telephone Encounter - Janet King MA - 11/24/2024 10:16 AM EDT Next visit 12/02/24 * Telephone Encounter - Nisha Wilson - 11/24/2024 9:33 AM EDT Patient's daughter calling asking for an medication: dilTIAZem CD (CARDIZEM CD, CARTIA XT) 120 mg 24 hr capsule () Patient last seen 10/31/23 Future visit scheduled: yes PHARMACY: [facility]. documented in this encounterTrihealth [facility]03-[facility] Telephone encounter Note * Telephone Encounter - Nisha Wilson - 11/24/2024 9:33 AM EDT Patient's daughter calling asking for an medication: dilTIAZem CD (CARDIZEM CD, CARTIA XT) 120 mg 24 hr capsule () Patient last seen 10/31/23 Future visit scheduled: yes PHARMACY: [facility]. [facility]02-27-2025 Telephone encounter Note* Telephone Encounter - Lulu Walls MA - 11/13/2024 2:46 PM EST Message left for daughter Farida to call back to schedule sooner appointment. Lulu Walls MA [facility]02-27-2025 Telephone encounter Note* Telephone Encounter - Marilin Stein MA - 11/13/2024 12:27 PM EST Please see message from pt's Daughter and advise if willing to order labs. Marilin Stein MA [facility]02-27-2025 Miscellaneous Notes* Telephone Encounter - Marilin Stein MA - 11/13/2024 12:27 PM EST Please see message from pt's Daughter and advise if willing to order labs. Marilin Stein MA documented in this encounterTrihealth [facility]02-[facility]25 Telephone encounter Note * Telephone Encounter - Mathieu Virgen MD - 11/12/2024 4:52 PM EST See if we can get him in sooner. [facility]02-26-[facility] Telephone encounter Note* Telephone Encounter - Lulu Walls MA - 11/12/2024 4:50 PM EST Has an appointment 12/19/24. Is that out too far? [facility] Telephone encounter Note* Telephone Encounter - Mathieu Virgen MD - 11/12/2024 3:33 PM EST Looks like we were updated on all but the most recent med changes. He has been following aggressively with his labs etc. Most of his med changes are due to his recent cardiac changes and per cardiology. As far as his solifenacin. I do not prescribe that. That should be addressed with the writing provider. I would recommend he stop tumeric and nuvoflex. He literally was just seen by one of our providers who went over everything in the last two weeks See if we can get him into see me in a few weeks [facility]02[facility]26[facility] Telephone encounter Note* Telephone Encounter - Tammy Davies LPN - 11/12/2024 2:31 PM EST Rem from [facility] pharmacist calling patient daughter told her that her father is taking Aspirin 81 mg daily and he is also taking Eliquis 5 mg one tablet twice daily, he is also taking tumeric 500 mg 2 capsules daily, Nuvoflex daily, a joint supplement she is not familiar with. She is concerned since he has lots of medications and lots of providers he is seeing, not sure providers know all the medications he is taking? Patient insurance is making her talk to nurse in PCP office at length about this, having possible medication interactions causing QT elongation and risk of AV block with taking the Solifenacin 10 mg daily and a few others. She is concerned patient daughter is not keeping providers up to date with mediation changes, his Basaglar insulin dose is 50 mg and his Humalog insulin dose is 26 units 3 times daily, Colestipol 1 gram patient is taking as needed but is daughter keeping away from when he is taking other medications. Taking Flecainide 100 mg one tablet twice daily, started on Spironolactone 25 mg once daily, taken off the Potassium, Furosemide dropped to 40 mg once daily, Losartan 25 mg daily. She said his daughter is not checking his blood pressure readings and his blood sugars and getting his lab work done more frequently to monitor his kidneys. She is hoping patient may get more monitoring done with his m edications. She plans to call office back tomorrow to see what PCP says with all of this. Please advise [facility]02-14[facility]25 NoteHNO ID: [id number] Author: SUKH HALL APRN.RN ORTHOPAEDIC Service: ? Author Type: Nurse Practitioner Type: Progress Notes Filed: 10/31/2024 15:16 Note Text: Chief Complaint Patient presents with: F/U 3 Month HPI Faisal Alarcon is a 79 year old male who presents here today for Above Complaints.. Patient presents for routine follow up. Patient has been having ongoing dizziness for months. Has been to the ER multiple times and last saw [facility] 09/23/2024. Patient is currently on losartan, spironolactone, isosorbide, furosemide, carvedilol. Patient reports he is currently on 1.5L fluid restriction. Reports if he sticks to his fluid restriction he is dizzy if he increases fluid intake the dizziness goes away. Past medical history, appointments, medications, allergies reviewed. [...] on File Prior to Visit Medication Sig isosorbide mononitrate ER (IMDUR) 30 mg 24 hr tablet Take 1 tablet by mouth every afternoon. Ordered by cardiology Blood-Glucose Sensor (DEXCOM G7 SENSOR) sayra Apply new sensor every ten (10) days. metFORMIN ER (GLUCOPHAGE XR) 500 mg 24 hr tablet Take 2 tablets by mouth two times a day before meals. furosemide (LASIX) 40 mg tablet Take 1 tablet by mouth once daily. atorvastatin (LIPITOR) 20 mg tablet Take 1 tablet by mouth once daily. Replaces simvastatin OXYGEN, HOME THERAPY, 2 L/min by Nasal Cannula route continuous. famotidine (PEPCID) 20 mg tablet Take 1 tablet by mouth two times a day. OTC NUTRITIONAL SUPPLEMENT NUVOFLEX TURMERIC ORAL Take by mouth. tamsulosin (FLOMAX) 0.4 mg Take 1 capsule by mouth every 12 hours. solifenacin 10 mg tablet Take 1 tablet by mouth every afternoon. empagliflozin (JARDIANCE) 25 mg tablet Take 1 tablet by mouth once daily. Take 1 tablet once daily in the morning losartan (COZAAR) 100 mg tablet Take 1 tablet by mouth once daily. cyanocobalamin (VITAMIN B-12) 1,000 mcg tab Take 1 tablet by mouth once daily. carvedilol (COREG) 25 mg tablet Take 1 tablet by mouth two times a day. ELIQUIS 5 mg tab(s) Take 1 tablet by mouth two times a day. Blood-Glucose Meter,Continuous (FREESTYLE MARIELLE 3 READER) [facility] Use to check blood sugar at least four (4) times daily. Uses insulin Blood-Glucose Sensor (FREESTYLE MARIELLE 3 PLUS SENSOR) sayra Apply new sensor every fifteen (15) days to upper arm. colestipol (COLESTID) 1 gram tablet Take 1 tablet by mouth once daily. albuterol HFA (VENTOLIN HFA) 90 mcg/actuation inhaler Inhale 2 Puffs as instructed every 4 hours as needed. insulin lispro (HUMALOG KWIKPEN INSULIN) 100 unit/mL Inject 20 Units subcutaneously three times a day before meals. Getting through [facility] dilTIAZem CD (CARDIZEM CD, CARTIA XT) 120 mg 24 hr capsule Take 1 capsule by mouth once daily. simvastatin (ZOCOR) 40 [...] mouth every 12 hours. Prescribed by outside envelope folder No current facility-admin (more content not included)...[facility]02-14-2025 History of Present illness Narrative* Sukh Hall, PAIGE.RN ORTHOPAEDIC - 10/31/2024 2:44 PM EST Chief Complaint Patient presents with: F/U 3 Month HPI Faisal Alarcon is a 79 year old male who presents here today for Above Complaints.. Patient presents for routine follow up. Patient has been having ongoing dizziness for months. Has been to the ER multiple times and last saw [facility] 09/23/2024. Patient is currently on losartan, spironolactone, isosorbide, furosemide, carvedilol. Patient reports he is currently on 1.5L fluid restriction.Reports if he sticks to his fluid restriction he is dizzy if he increases fluid intake the dizziness goes away. Past medical history, appointments, medications, allergies reviewed. [...] on File Prior to Visit Medication Sig isosorbide mononitrate ER (IMDUR) 30 mg 24 hr tablet Take 1 tablet by mouth every afternoon. Ordered by cardiology Blood-Glucose Sensor (DEXCOM G7 SENSOR) sayra Apply new sensor every ten (10) days. metFORMIN ER (GLUCOPHAGE XR) 500 mg 24 hr tablet Take 2 tablets by mouth two times a day before meals. furosemide (LASIX) 40 mg tablet Take 1 tablet by mouth once daily. atorvastatin (LIPITOR) 20 mg tablet Take 1 tablet by mouth once daily. Replaces simvastatin OXYGEN, HOME THERAPY, 2 L/min by Nasal Cannula route continuous. famotidine (PEPCID) 20 mg tablet Take 1 tablet by mouth two times a day. OTC NUTRITIONAL SUPPLEMENT NUVOFLEX TURMERIC ORAL Take by mouth. tamsulosin (FLOMAX) 0.4 mg Take 1 capsule by mouth every 12 hours. solifenacin 10 mg tablet Take 1 tablet by mouth every afternoon. empagliflozin (JARDIANCE) 25 mg tablet Take 1 tablet by mouth once daily. Take 1 tablet once daily in the morning losartan (COZAAR) 100 mg tablet Take 1 tablet by mouth once daily. cyanocobalamin (VITAMIN B-12) 1,000 mcg tab Take 1 tablet by mouth once daily. carvedilol (COREG) 25 mg tablet Take 1 tablet by mouth two times a day. ELIQUIS 5 mg tab(s) Take 1 tablet by mouth two times a day. Blood-Glucose Meter,Continuous (FREESTYLE MARIELLE 3 READER) [facility] Use to check blood sugar at least four (4) times daily. Uses insulin Blood-Glucose Sensor (FREESTYLE MARIELLE 3 PLUS SENSOR) sayra Apply new sensor every fifteen (15) days to upper arm. colestipol (COLESTID) 1 gram tablet Take 1 tablet by mouth once daily. albuterol HFA (VENTOLIN HFA) 90 mcg/actuation inhaler Inhale 2 Puffs as instructed every 4 hours asneeded. insulin lispro (HUMALOG KWIKPEN INSULIN) 100 unit/mL Inject 20 Units subcutaneously three times a day before meals. Getting through [facility] dilTIAZem CD (CARDIZEM CD, CARTIA XT) 120 mg 24 hr capsule Take 1 capsule by mouth once daily. simvastatin (ZOCOR) 40 mg tablet Take 1 tablet by mouth daily at bedtime. insulin glargine (BASAGLAR KWIKPEN U-100 INSULIN) 100 unit/mL (3 mL) Inject 90 Units subcutaneouslydaily at bedtime. finasteride (PROSCAR) 5 mg tablet [...] mouth every 12 hours. Prescribed by outside envelope folder No current facility-administered medications on file prior to visit. Social History Social History Tobacco Use Smoking status: Former Current packs/day: 0.00 Average packs/day: 2.0 packs/day for 10.0 years (20.0 ttl pk-yrs) Types: Cigarettes Start date: 09/17/1970 Quit date: 09/17/1980 Years since quittin.1 Smokeless tobacco: Never Vaping Use Vaping status: Never Used Substance Use Topics Alcohol use: No Drug use: No Review of Symptoms REVIEW OF SYSTEMS SEE HPI EXAM: BP 114/68 Pulse 78 Resp 18 Wt 124.3 kg (274 lb) SpO2 97% BMI 36.15 kg/m General Appearance: Well appearing, alert, in no acute distress, well-hydrated, well nourished. Lungs: Lungs clear to auscultation. No wheezing, rhonchi, rales.. Heart: RRR without murmur, gallop, or rubs. No ectopy. Health Maintenance List RSV Vaccine(1 - 1-dose 75+ series) Never done Advance Directive Discussion due on 09/17/2024 Urine Albumin:Creatinine Ratio due on 11/27/2024 LDL Cholesterol due on 11/27/2024 DTaP,Tdap,Td Vaccine(1 - Tdap) due on 06/20/2025 Shingrix Vaccine(1 of 2) due on 06/20/2025 Covid-19 Vaccine( - season) due on 06/20/2025 HbA1C due on 12/09/2024 Depression Screening due on 12/24/2024 Anxiety Screening due on 12/24/2024 Dilated Retinal Exam due on 06/20/2025 Diabetic Foot Exam due on 06/20/2025 Annual PCP Team Chronic Disease Visit due on 09/23/2025 BP Controlled (<130/80) due on 09/23/2025 Influenza Vaccine Completed Pneumococcal Vaccine: 50+ Completed Colorectal Cancer Screening Discontinued Data reviewed Last 5 Encounter BP Readings: Date: BP: 10/31/2024 114/68 09/23/2024 118/68 07/29/2024 104/50 06/23/2024 155/77 06/20/2024 132/56 ASSESSMENT/PLAN: 1. Essential hypertension - ICD9: 401.9, ICD10: I10 (primary diagnosis) - Controlled - Continue current medications - Recommend home blood pressure monitoring, to bring results to next visit - Encouraged sodium restriction, DASH or Mediterranean diet - Recommend regular aerobic exercise - Discussed need for and benefit of weight loss. BMI 36.15 kg/(m^2) - 2. Paroxysmal atrial fibrillation (HCC) - ICD9: 427.31, ICD10: I48.0 -Continue carvedilol and eliquis 3. Dizziness - ICD9: 780.4, ICD10: R42 -Increase fluid intake to 2L per day, discussed with Sergey Carreon at [facility]. Has follow up with Dr. Bailey aguilar. 4. Systolic congestive heart failure, unspecified HF chronicity (HCC) - ICD9: 428.20, 428.0, ICD10:I50.20 - Continue current medications - Encouraged sodium restriction - Encouraged daily weights Patient instructed if he develops swelling, weight gain or SOB to follow up with [facility] for guidance. Sukh Hall APRN.CAESAR documented in this encounterTri[facility] Telephone encounter Note * Telephone Encounter - Jackelin Tinajero RN - 10/31/2024 2:36 PM EST Call placed to patient and spoke to daughter (Nisha). Nisha reports that patient has on-going dizziness/light-headedness and has been to the ER multiple times for syncopal episodes. Patient was seen 09/23/2024 for ER follow up for CP and dizziness. Nisha reports that symptoms are not any worse just not improving. Patient is on fluid restrictions to 3 1/2 bottles of water daily and she thinks some of the problemis that he is dehydrated because he will often have dry lips and if he drinks then he feels better. Dizziness occurs most frequently in the am upon wakening. Nisha believes that to be related to low oxygen levels at night as he is waiting for a new C-pap machine from [facility]. (Nisha is calling them to ask about the machine as she is aware that we are not able to do anything about that). Patient wants to discuss the fluid restriction. Nisha aware that if he is dehydrated and needs fluids he should go to the ER but she said he is not to that point. Appointment remains. Jackelin Tinajero RN [facility]02-14-2025 Miscellaneous Notes* Telephone Encounter - Jackelin Tinajero RN - 10/31/2024 2:36 PM EST Call placed to patient and spoke to daughter (Nisha). Nisha reports that patient has on-going dizziness/light-headedness and has been to the ER multiple times for syncopal episodes. Patient was seen 09/23/2024 for ER follow up for CP and dizziness. Nisha reports that symptoms are not any worse just not improving. Patient is on fluid restrictions to 3 1/2 bottles of water daily and she thinks some of the problemis that he is dehydrated because he will often have dry lips and if he drinks then he feels better. Dizziness occurs most frequently in the am upon wakening. Nisha believes that to be related to low oxygen levels at night as he is waiting for a new C-pap machine from [facility]. (Nisha is calling them to ask about the machine as she is aware that we are not able to do anything about that). Patient wants to discuss the fluid restriction. Nisha aware that if he is dehydrated and needs fluids he should go to the ER but she said he is not to that point. Appointment remains. Jackelin Tinajero RN documented in this encounterTrihealth [facility]01-30-[facility]25 Telephone encounter Note * Telephone Encounter - Lulu Walls MA - 10/16/2024 11:52 AM EST We do not have samples. Spoke with daughter Farida and informed her of this. She is requesting a Rx for the Dexcom sensors (G7) to the [facility] in [place] while waiting for the company to ship more. Patient has finger stick meter at home but daughter states this is not super convenient for them to check this way. Lulu Walls MA [facility]01-30-2025 Miscellaneous Notes* Telephone Encounter - Lulu Walls MA - 10/16/2024 11:52 AM EST We do not have samples. Spoke with daughter Farida and informed her of this. She is requesting a Rx for the Dexcom sensors (G7) to the [facility] in [place] while waiting for the company to ship more. Patient has finger stick meter at home but daughter states this is not super convenient for them to check this way. Lulu Walls MA * Telephone Encounter - Mathieu Virgen MD - 10/16/2024 10:34 AM EST Do we have anything like that available? Might need to buy one if not * Telephone Encounter - Osvaldo Regalado RN - 10/16/2024 10:31 AM EST Daughter Farida reports patient had 3 Dexcom G 7 sensors that malfunctioned. They notified the company, but it takes 5-7 days to receive new one. Asking if pcp has samples of these sensors or knows how they can get one. Please phone Farida with reply: [phone] documented in this encounterTrihealth [facility]01-30-2025 Telephone encounter Note * Telephone Encounter - Mathieu Virgen MD - 10/16/2024 10:34 AM EST Do we have anything like that available? Might need to buy one if not [facility]01-30[facility] Telephone encounter Note* Telephone Encounter - Osvaldo Regalado RN - 10/16/2024 10:31 AM EST Daughter Farida reports patient had 3 Dexcom G 7 sensors that malfunctioned. They notified the company, but it takes 5-7 days to receive new one. Asking if pcp has samples of these sensors or knows how they can get one. Please phone Farida with reply: [phone] [facility]01-[facility] Telephone encounter Note* Telephone Encounter - Julianna Hood APRN.CNP - 10/09/2024 8:43 AM EST The following approved medication requests have been transmitted electronically. Requested Prescriptions Pending Prescriptions Disp Refills metFORMIN ER (GLUCOPHAGE XR) 500 mg 24 hr tablet 360 tablet 3 Sig: Take 2 tablets by mouth two times a day before meals. Julianna Hood APRN.CNP [facility]01-23-2025 Miscellaneous Notes* Telephone Encounter - Julianna Hood APRN.CNP - 10/09/2024 8:43 AM EST The following approved medication requests have been transmitted electronically. Requested Prescriptions Pending Prescriptions Disp Refills metFORMIN ER (GLUCOPHAGE XR) 500 mg 24 hr tablet 360 tablet 3 Sig: Take 2 tablets by mouth two times a day before meals. Julianna Hood APRN.CNP * Telephone Encounter - Kennedi Frey LPN - 10/09/2024 7:51 AM EST The patient has been identified by name and date of : Yes Caregiver verified no other encounters exist for this prescription request: Yes Caregiver confirmed with patient/requestor that no other refills are due, in the near future, with this provider at this time: Yes The last office visit in the department: 09/23/2024 Does the patient have a future office visit with this provider/department: Yes 10/31/2024 Requested Prescriptions Pending Prescriptions Disp Refills metFORMIN ER (GLUCOPHAGE XR) 500 mg 24 hr tablet 360 tablet 3 Sig: Take 2 tablets by mouth two times a day before meals. Kennedi Frey LPN October 09, 2024 7:52 AM documented in this encounterTrihealth [facility]01-23-2025 Telephone encounter Note * Telephone Encounter - Kennedi Frey LPN - 10/09/2024 7:51 AM EST The patient has been identified by name and date of : Yes Caregiver verified no other encounters exist for this prescription request: Yes Caregiver confirmed with patient/requestor that no other refills are due, in the near future, with this provider at this time: Yes The last office visit in the department: 09/23/2024 Does the patient have a future office visit with this provider/department: Yes 10/31/2024 Requested Prescriptions Pending Prescriptions Disp Refills metFORMIN ER (GLUCOPHAGE XR) 500 mg 24 hr tablet 360 tablet 3 Sig: Take 2 tablets by mouth two times a day before meals. Kennedi Frey LPN October 09, 2024 7:52 AM [facility]01-07-[facility]25 NoteHNO ID: [id number] Author: HAAGEN, DENISHA, TOLL LINE INSPECTOR.RN ORTHOPAEDIC Service: ? Author Type: Nurse Practitioner Type: Progress Notes Filed: 09/23/2024 18:18 Note Text: This is a 79 year old male who presents today with: Patient presents with: ER F/U: [facility] ER 09/20/24 dx:CP HISTORY OF PRESENT ILLNESS: Faisal Alarcon is a 79 year old male. Patient presents with: ER F/U: [facility] ER 09/20/24 dx:CP Patient presents today for emergency room follow-up. He went to the emergency room on 09/20/2024 with complaints of chest discomfort. He had been given nitroglycerin by EMS that did improve his pain. He had negative cardiac enzymes and stable lab work. There was no STEMI. The emergency room did consult patient's envelope folder, and it was recommended to start patient on Imdur. He was to follow-up with cardiology. Since he was in the emergency room they have been noticing some more lightheadedness/dizziness. Patient reports his mostly associated with position changes and when he gets up in the morning. They did reach out to cardiology and they have patient holding his losartan. Patient denies any further episodes of chest pain since his ER visit. They did hold his losartan and his dizziness has been improved today. PAST MEDICAL HISTORY: PAST MEDICAL HISTORY Diagnosis [...] Amoxicillin MEDICATIONS Current Outpatient Medications Medication Sig furosemide (LASIX) 40 mg tablet Take 1 tablet by mouth once daily. atorvastatin (LIPITOR) 20 mg tablet Take 1 tablet by mouth once daily. Replaces simvastatin OXYGEN, HOME THERAPY, 2 L/min by Nasal Cannula route continuous. famotidine (PEPCID) 20 mg tablet Take 1 tablet by mouth two times a day. OTC NUTRITIONAL SUPPLEMENT NUVOFLEX TURMERIC ORAL Take by mouth. tamsulosin (FLOMAX) 0.4 mg Take 1 capsule by mouth every 12 hours. solifenacin 10 mg tablet Take 1 tablet by mouth every afternoon. empagliflozin (JARDIANCE) 25 mg tablet Take 1 tablet by mouth once daily. Take 1 tablet once daily in the morning losartan (COZAAR) 100 mg tablet Take 1 tablet by mouth once daily. cyanocobalamin (VITAMIN B-12) 1,000 mcg tab Take 1 tablet by mouth once daily. carvedilol (COREG) 25 mg tablet Take 1 tablet by mouth two times a day. ELIQUIS 5 mg tab(s) Take 1 tablet by mouth two times a day. Blood-Glucose Meter,Continuous (FREESTYLE MARIELLE 3 READER) [facility] Use to check blood sugar at least four (4) times daily. Uses insulin Blood-Glucose Sensor (FREESTYLE MARIELLE 3 PLUS SENSOR) [facility] Apply new sensor every fifteen (15) days to upper arm. colestipol (COLESTID) 1 gram tablet Take 1 tablet by mouth once daily. albuterol HFA (VENTOLIN HFA) 90 mcg/actuation inhaler Inhale 2 Puffs as instructed every 4 hours as needed. insulin lispro (HUMALOG KWIKPEN INSULIN) 100 unit/mL Inject 20 Units subcutaneously three times a day before meals. Getting through [facility] (Patient taking differently: Inject 26 Units subcutaneously three times a day before meals. Getting through [facility]) dilTIAZem CD (CARDIZEM CD, CARTIA XT) 120 [...] mouth every 12 hours. Prescribed by outside envelope folder insulin glargine (BASAGLAR KWIKPEN U-100 INSULIN) 100 unit/mL (3 mL) Inject 90 Units subcutaneously daily at bedtime. (Patient taking differently: Inject 60 Units subcutaneously daily at bedtime.) finasteride (PROSCAR) 5 mg tablet aspirin 81 [...] blood sugar(s) 1 times daily. Dx: 250.00. Insul (more content not included)...[facility] 09-23-2024 History of Present illness Narrative* Denisha Shepard APRN.RN ORTHOPAEDIC - 09/23/2024 6:10 PM EST This is a 79 year old male who presents today with: Patient presents with: ER F/U: [facility] ER 09/20/24 dx:CP HISTORY OF PRESENT ILLNESS: Faisal Alarcon is a 79 year old male. Patient presents with: ER F/U: [facility] ER 09/20/24 dx:CP Patient presents today for emergency room follow-up. He went to the emergency room on 09/20/2024 with complaints of chest discomfort. He had been given nitroglycerin by EMS that did improve his pain. He had negative cardiac enzymes and stable lab work. There was no STEMI. The emergency room did consult patient's envelope folder, and it was recommended to start patient on Imdur. He was to follow-up with cardiology. Since he was in the emergency room they have been noticing some more lightheadedness/dizziness. Patient reports his mostly associated with position changes and when he gets up in the morning. They did reach out to cardiology and they have patient holding his losartan. Patient denies any further episodes of chest pain since his ER visit. They did hold his losartan and his dizziness has been improved today. PAST MEDICAL HISTORY: PAST MEDICAL HISTORY Diagnosis [...] Amoxicillin MEDICATIONS Current Outpatient Medications Medication Sig furosemide (LASIX) 40 mg tablet Take 1 tablet by mouth once daily. atorvastatin (LIPITOR) 20 mg tablet Take 1 tablet by mouth once daily. Replaces simvastatin OXYGEN, HOME THERAPY, 2 L/min by Nasal Cannula route continuous. famotidine (PEPCID) 20 mg tablet Take 1 tablet by mouth two times a day. OTC NUTRITIONAL SUPPLEMENT NUVOFLEX TURMERIC ORAL Take by mouth. tamsulosin (FLOMAX) 0.4 mg Take 1 capsule by mouth every 12 hours. solifenacin 10 mg tablet Take 1 tablet by mouth every afternoon. empagliflozin (JARDIANCE) 25 mg tablet Take 1 tablet by mouth once daily. Take 1 tablet once daily in the morning losartan (COZAAR) 100 mg tablet Take 1 tablet by mouth once daily. cyanocobalamin (VITAMIN B-12) 1,000 mcg tab Take 1 tablet by mouth once daily. carvedilol (COREG) 25 mg tablet Take 1 tablet by mouth two times a day. ELIQUIS 5 mg tab(s) Take 1 tablet by mouth two times a day. Blood-Glucose Meter,Continuous (FREESTYLE MARIELLE 3 READER) [facility] Use to check blood sugar at least four (4) times daily. Uses insulin Blood-Glucose Sensor (FREESTYLE MARIELLE 3 PLUS SENSOR) sayra Apply new sensor every fifteen (15) days to upper arm. colestipol (COLESTID) 1 gram tablet Take 1 tablet by mouth once daily. albuterol HFA (VENTOLIN HFA) 90 mcg/actuation inhaler Inhale 2 Puffs as instructed every 4 hours asneeded. insulin lispro (HUMALOG KWIKPEN INSULIN) 100 unit/mL Inject 20 Units subcutaneously three times a day before meals. Getting through [facility] (Patient taking differently: Inject 26 Units subcutaneously three times a day before meals. Getting through [facility]) dilTIAZem CD (CARDIZEM CD, CARTIA XT) 120 [...] mouth every 12 hours. Prescribed by outside envelope folder insulin glargine (BASAGLAR KWIKPEN U-100 INSULIN) 100 unit/mL (3 mL) Inject 90 Units subcutaneouslydaily at bedtime. (Patient taking differently: Inject 60 Units subcutaneously daily at bedtime.) finasteride (PROSCAR) 5 mg tablet aspirin 81 [...] date: 09/17/1970 Quit date: 09/17/1980 Years since quittin.0 Smokeless tobacco: Never Vaping Use Vaping status: Never Used Substance Use Topics Alcohol use: No Drug use: No EXAM: BP 118/68 Pulse 79 Resp 16 Wt 127.9 kg (282 lb) SpO2 99% BMI 37.21 kg/m PHYSICAL EXAM: General Appearance: Well appearing, alert, in no acute distress, well-hydrated, well nourished.. Skin: Skin color, texture, turgor normal, no suspicious rashes or lesions. Head: Normocephalic, no masses, lesions, tenderness or abnormalities. Eyes: Anicteric sclera. Extraocular movements are intact. . Lungs: Lungs clear to auscultation. No wheezing, rhonchi, rales.. Heart: RRR without murmur, gallop, or rubs. No ectopy. Abdomen: Abdomen soft, non-tender. Bowel sounds normal. No masses, organomegaly. Extremities: No deformities, trace edema, skin discoloration, clubbing or cyanosis. Good capillary refill. . Neurologic: Gait normal. Reflexes normal and symmetric. Sensation grossly intact.. ASSESSMENT/PLAN: 1. Dizziness - ICD9: 780.4, ICD10: R42 (primary diagnosis) Suspect adding the Imdur to other cardiac medications may be causing more postural hypotension. His daughter did reach out to cardiology, and they did put his losartan on hold. Patient does have an appointment with cardiology today at 3:30. Daughter encouraged to let us know outcome of today's visit. 2. Chest pain, unspecified type - ICD9: 786.50, ICD10: R07.9 No episodes since recent ER visit. Discussed treatment plan and patient voices understanding. Patient's questions answered appropriately. Medications and potential side effects were discussed and patient voices understanding. Return to the office as scheduled or as needed for worsening/no improvement. Denisha Shepard APRN.CAESAR documented in this encounterTrihealth [facility]01-07-[facility]25 Telephone encounter Note * Telephone Encounter - Denisha Shepard APRN.CNP - 09/23/2024 5:14 PM EST See office notes. Has appt w/ cardiology today. Denisha Shepard APRN.CAESAR [facility]01-07-2025 Miscellaneous Notes* Telephone Encounter - Denisha Shepard APRN.CNP - 09/23/2024 5:14 PM EST See office notes. Has appt w/ cardiology today. Denisha Shepard APRN.CNP * Telephone Encounter - Liyah Monroy RN - 09/22/2024 12:49 PM EST Pts daughter called in and reports her father was in [facility] ER 09/20/24. She reports Pt was having chestpain and that is why he went to the ER. Pts daughter states they didn't find anything wrong with him, everything was the same as before. Pt scheduled with Denisha Shepard WOOD POLE TREATER 09/23/24 at 240 pm. She reports he father has been feeling lightheaded and dizzy, and she thinks it's because on 09/13/[address] Ponce double his dose of Lasix. She said he has been to the ER multiple times and theyhave told him he has fluid around his heart. She said Pt didn't have any issues breathing, but he is on O2 and if he is off of that he has trouble breathing. She states she thinks the dizziness is from the increased dose of Lasix and Pt being dehydrated. She checked his O2, pulse, and BS today and they were fine. She wasn't able to check his BP as she didn't bring her cuff. She states his BP has been running a little lower at times like 100s/60s. Pt normally runs 120-mid 130s/70-80. I told her to call Cardiology as they would have to change the dosing on that as they prescribe it. She said she was going to, I also told her to see if she could get his appointment with them moved up since it is out a few weeks from now. documented in this encounterTrihealth [facility]01-06-2025 Telephone encounter Note * Telephone Encounter - Liyah Monroy RN - 09/22/2024 12:49 PM EST Pts daughter called in and reports her father was in [facility] ER 09/20/24. She reports Pt was having chestpain and that is why he went to the ER. Pts daughter states they didn't find anything wrong with him, everything was the same as before. Pt scheduled with Denisha Shepard [facility] 09/23/24 at 240 pm. She reports he father has been feeling lightheaded and dizzy, and she thinks it's because on 09/13/[address] Ponce double his dose of Lasix. She said he has been to the ER multiple times and theyhave told him he has fluid around his heart. She said Pt didn't have any issues breathing, but he is on O2 and if he is off of that he has trouble breathing. She states she thinks the dizziness is from the increased dose of Lasix and Pt being dehydrated. She checked his O2, pulse, and BS today and they were fine. She wasn't able to check his BP as she didn't bring her cuff. She states his BP has been running a little lower at times like 100s/60s. Pt normally runs 120-mid 130s/70-80. I told her to call Cardiology as they would have to change the dosing on that as they prescribe it. She said she was going to, I also told her to see if she could get his appointment with them moved up since it is out a few weeks from now. [facility]12-17-2024 Telephone encounter Note* Telephone Encounter - Angelina Bliss RN - 09/02/2024 3:51 PM EST Patient's daughter Farida, returned call and given provider's message below. Angelina Bliss RN [facility]12-17-2024 Miscellaneous Notes* Telephone Encounter - Angelina Bliss RN - 09/02/2024 3:51 PM EST Patient's daughter Farida, returned call and given provider's message below. Angelina Bliss RN * Telephone Encounter - Janet King MA - 09/02/2024 3:18 PM EST Left message for patient to return call and speak to triage nurse Janet King Ma * Telephone Encounter - Mathieu Virgen MD - 09/02/2024 1:07 PM EST If any pain, nausea or vomiting or distention to er for disimpaction if it is the rectum and can't use a suppository or enema. * Telephone Encounter - Jackelin Tinajero RN - 09/02/2024 12:46 PM EST Daughter calls to report that patient hasn't had a bowel movement in 4-5 days and patient reports that stool is in the rectum but won't come out. Reviewed care advice. Daughter reports that patient would not be able to utilize a suppository. Reviewed other options of Miralax or MOM with verbalized u nderstanding. Patient on fluid restrictions so not able to push fluids. Nurse triage also recommends see provider within 24 hours. Daughter declined scheduling. Will try care advice first. Requested sending this to Dr. Virgen for any other suggestions. Patient hasn't used the Colestipol in 2 weeks d/t having normal BM's. Reason for Disposition Last bowel movement (BM) > 4 days ago Answer Assessment - Initial Assessment Questions 1. STOOL PATTERN OR FREQUENCY: Normal BM daily to every 4 to 5 2. STRAINING: Yes 3. ONSET: In the last 4 days. Patient usually has diarrhea. Isn't taking Colestipol x 2 weeks d/t having normal bowel movements. 5. RECTAL PAIN: No 6. BM COMPOSITION: Not able to pass 7. BLOOD ON STOOLS: No 8. CHRONIC CONSTIPATION: No 8. CHANGES IN DIET OR HYDRATION: No, patient is on fluid restrictions. Daughter reports patient drink 4 bottles of water daily approximately. 9. MEDICINES: No 10. LAXATIVES: No 11. ACTIVITY: NO change in activity 12. CAUSE: Daughter not certain. 13. MEDICAL HISTORY: No history of hemorrhoids, rectal fissures, rectal surgery, or rectal abscess? 14. OTHER SYMPTOMS: No other symptoms that daughter knows of. Protocols used: [id number] documented in this encounterTri[facility] Telephone encounter Note * Telephone Encounter - Janet King MA - 09/02/2024 3:18 PM EST Left message for patient to return call and speak to triage nurse Janet King Ma [facility]12-17-2024 Telephone encounter Note* Telephone Encounter - Mathieu Virgen MD - 09/02/2024 1:07 PM EST If any pain, nausea or vomiting or distention to er for disimpaction if it is the rectum and can't use a suppository or enema. [facility]12-17-2024 Telephone encounter Note* Telephone Encounter - Jackelin Tinajero RN - 09/02/2024 12:46 PM EST Daughter calls to report that patient hasn't had a bowel movement in 4-5 days and patient reports that stool is in the rectum but won't come out. Reviewed care advice. Daughter reports that patient would not be able to utilize a suppository. Reviewed other options of Miralax or MOM with verbalized u nderstanding. Patient on fluid restrictions so not able to push fluids. Nurse triage also recommends see provider within 24 hours. Daughter declined scheduling. Will try care advice first. Requested sending this to Dr. Virgen for any other suggestions. Patient hasn't used the Colestipol in 2 weeks d/t having normal BM's. Reason for Disposition Last bowel movement (BM) > 4 days ago Answer Assessment - Initial Assessment Questions 1. STOOL PATTERN OR FREQUENCY: Normal BM daily to every 4 to 5 2. STRAINING: Yes 3. ONSET: In the last 4 days. Patient usually has diarrhea. Isn't taking Colestipol x 2 weeks d/t having normal bowel movements. 5. RECTAL PAIN: No 6. BM COMPOSITION: Not able to pass 7. BLOOD ON STOOLS: No 8. CHRONIC CONSTIPATION: No 8. CHANGES IN DIET OR HYDRATION: No, patient is on fluid restrictions. Daughter reports patient drink 4 bottles of water daily approximately. 9. MEDICINES: No 10. LAXATIVES: No 11. ACTIVITY: NO change in activity 12. CAUSE: Daughter not certain. 13. MEDICAL HISTORY: No history of hemorrhoids, rectal fissures, rectal surgery, or rectal abscess? 14. OTHER SYMPTOMS: No other symptoms that daughter knows of. Protocols used: [id number] [facility]12-09-2024 Telephone encounter Note* Telephone Encounter - Kennedi Frey LPN - 08/25/2024 8:12 AM EST Spoke with Farida, daughter of pt and message below given. Farida verbalizes understanding. Kennedi Frey LPN [facility]12-09-2024 Miscellaneous Notes* Telephone Encounter - Kennedi Frey LPN - 08/25/2024 8:12 AM EST Spoke with Farida, daughter of pt and message below given. Farida verbalizes understanding. Kennedi Frey LPN * Telephone Encounter - Janet King MA - 08/22/2024 1:35 PM EST Left message for patient to return call. Janet King Ma * Telephone Encounter - Julianna Hood APRN.CNP - 08/22/2024 12:55 PM EST Since patient has slightly weakened kidneys, I will replace simvastatin with a atorvastatin 20 mg daily. It is a little safer on the kidneys. * Telephone Encounter - Christian Bob LPN - 08/22/2024 11:53 AM EST Prescription Refill Information The patient has been identified by name and date of : Yes Caregiver verified no other encounters exist for this prescription request: Yes Caregiver confirmed with patient/requestor that no other refills are due, in the near future, with this provider at this time: Yes The last office visit in the department: 07/29/24 Does the patient have a future office visit with this provider/department: Yes, 10/31/24 Requested Prescriptions Pending Prescriptions Disp Refills simvastatin (ZOCOR) 40 mg tablet 90 tablet 3 Sig: Take 1 tablet by mouth daily at bedtime. Christian Bob LPN August 22, 2024 11:53 AM documented in this encounterTri[facility]12[facility] Telephone encounter Note * Telephone Encounter - Janet King MA - 08/22/2024 1:35 PM EST Left message for patient to return call. Janet King Ma [facility]12-06-2024 Telephone encounter Note* Telephone Encounter - Julianna Hood APRN.CNP - 08/22/2024 12:56 PM EST The following approved medication requests have been transmitted electronically. Requested Prescriptions Pending Prescriptions Disp Refills furosemide (LASIX) 40 mg tablet 90 tablet 1 Sig: Take 1 tablet by mouth once daily. Julianna Hood APRN.CNP [facility]12-06-2024 Miscellaneous Notes* Telephone Encounter - Julianna Hood APRN.CNP - 08/22/2024 12:56 PM EST The following approved medication requests have been transmitted electronically. Requested Prescriptions Pending Prescriptions Disp Refills furosemide (LASIX) 40 mg tablet 90 tablet 1 Sig: Take 1 tablet by mouth once daily. Julianna Hood APRN.CNP * Telephone Encounter - Christian Bob LPN - 08/22/2024 11:52 AM EST Prescription Refill Information The patient has been identified by name and date of : Yes Caregiver verified no other encounters exist for this prescription request: Yes Caregiver confirmed with patient/requestor that no other refills are due, in the near future, with this provider at this time: Yes The last office visit in the department: 07/29/24 Does the patient have a future office visit with this provider/department: Yes, 10/31/24 Requested Prescriptions Pending Prescriptions Disp Refills furosemide (LASIX) 40 mg tablet 90 tablet 1 Sig: Take 1 tablet by mouth once daily. Christian Bob LPN August 22, 2024 11:52 AM documented in this encounterTri[facility]12-[facility] Telephone encounter Note * Telephone Encounter - Julianna Hood APRN.CNP - 08/22/2024 12:55 PM EST Since patient has slightly weakened kidneys, I will replace simvastatin with a atorvastatin 20 mg daily. It is a little safer on the kidneys. [facility]12-06-2024 Telephone encounter Note* Telephone Encounter - Christian Bob LPN - 08/22/2024 11:53 AM EST Prescription Refill Information The patient has been identified by name and date of : Yes Caregiver verified no other encounters exist for this prescription request: Yes Caregiver confirmed with patient/requestor that no other refills are due, in the near future, with this provider at this time: Yes The last office visit in the department: 07/29/24 Does the patient have a future office visit with this provider/department: Yes, 10/31/24 Requested Prescriptions Pending Prescriptions Disp Refills simvastatin (ZOCOR) 40 mg tablet 90 tablet 3 Sig: Take 1 tablet by mouth daily at bedtime. Christian Bob LPN August 22, 2024 11:53 AM [facility]12-06-2024 Telephone encounter Note* Telephone Encounter - Christian Bob LPN - 08/22/2024 11:52 AM EST Prescription Refill Information The patient has been identified by name and date of : Yes Caregiver verified no other encounters exist for this prescription request: Yes Caregiver confirmed with patient/requestor that no other refills are due, in the near future, with this provider at this time: Yes The last office visit in the department: 07/29/24 Does the patient have a future office visit with this provider/department: Yes, 10/31/24 Requested Prescriptions Pending Prescriptions Disp Refills furosemide (LASIX) 40 mg tablet 90 tablet 1 Sig: Take 1 tablet by mouth once daily. Christian Bob LPN August 22, 2024 11:52 AM [facility]12-02-2024 Telephone encounter Note* Telephone Encounter - Jaylene Henley LPN - 08/18/2024 1:14 PM EST We did and faxed it back. Will fax again today. [facility]12-02-2024 Miscellaneous Notes* Telephone Encounter - Jaylene Henley LPN - 08/18/2024 1:14 PM EST We did and faxed it back. Will fax again today. * Telephone Encounter - Kristina Higuera LPN - 08/18/2024 12:55 PM EST Kate with [employer] calls to check on status of order form that was faxed last week for Dexcom G7. Kate is asking if office did not receive order form if office would call back and let them know. Kristina Higuera LPN documented in this encounterTrihealth [facility]12-02-2024 Telephone encounter Note * Telephone Encounter - Kristina Higuera LPN - 08/18/2024 12:55 PM EST Kate with [employer] calls to check on status of order form that was faxed last week for Dexcom G7. Kate is asking if office did not receive order form if office would call back and let them know. Kristina Higuera LPN [facility]11-29-2024 Telephone encounter Note* Telephone Encounter - Angelina Bliss RN - 08/15/2024 8:59 AM EST Summer calling with [employer], the company assisting patient with Dexcom G7 CGM. Requesting recent OV note to further proceed with pt's CGM order. Faxed as requested to [phone]. Angelina Wurst, RN [facility]11-29-2024 Miscellaneous Notes* Telephone Encounter - Angelina Bliss RN - 08/15/2024 8:59 AM EST Summer calling with [employer], the company assisting patient with Dexcom G7 CGM. Requesting recent OV note to further proceed with pt's CGM order. Faxed as requested to [phone]. 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 August 3:17pm Paroxysmal atrial fibrillation chron ic September 03, 2024 3:17pm Essential (primary) hypertension chronic September 23 3:25pm 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 September 23, 2024 3:25pm Paroxysmal atrial fibrillation chron ic September 23, 2024 3:25pm [facility] Work Phone: 1(255) 936-637211-25-2024 Telephone encounter Note* Telephone Encounter - Mathieu Virgen MD - 08/11/2024 1:42 PM EST agree [facility]11-25-2024 Miscellaneous Notes* Telephone Encounter - Mathieu Virgen MD - 08/11/2024 1:42 PM EST agree * Telephone Encounter - Tammy Davies LPN - 08/11/2024 1:05 PM EST Patient caesar hernandez is very pale, weak, has dizziness, nausea, voice hoarse, feels like he could vomit, says he is not feeling well at all for the past 2 days. He is not eating or drinking any fluids. Advised that he would need evaluated, needs to go to the ER probably will need IV fluids. Aware note is being sent to his PCP. documented in this encounterTrihealth [facility]11-25-2024 Telephone encounter Note * Telephone Encounter - Tammy Davies LPN - 08/11/2024 1:05 PM EST Patient daughter Farida hernandez is very pale, weak, has dizziness, nausea, voice hoarse, feels like he could vomit, says he is not feeling well at all for the past 2 days. He is not eating or drinking any fluids. Advised that he would need evaluated, needs to go to the ER probably will need IV fluids. Aware note is being sent to his PCP. [facility]11-19-2024 Telephone encounter Note* Telephone Encounter - Lulu Walls MA - 08/05/2024 5:00 PM EST Order faxed to Gilberto and daughter, Farida informed. Lulu Walls MA [facility]11-19-2024 Miscellaneous Notes* Telephone Encounter - Lulu Walls MA - 08/05/2024 5:00 PM EST Order faxed to [facility] and daughter, Farida informed. Lulu Walls MA * Telephone Encounter - Mathieu Virgen MD - 08/05/2024 3:52 PM EST printed * Telephone Encounter - Angelina Bliss RN - 08/05/2024 3:12 PM EST This triage nurse spoke with patient's daughter [employer] is for 2 liters of O2 PRN exertion. Daughter asking if Dr. Virgen can send new order to [employer] for 2 liters Oxygen continuous? Daughter states pt prefers to continue to use the tanks and does not want an electric concentrator, if possible. Daughter states patient does not have any worsening symptoms since recent OV on 07/29/24 and she will update PCP if pt does. Please call daughter Farida when order has been sent to [employer]. Thank you. documented in this encounterTrihealth [facility]11-[facility] Telephone encounter Note * Telephone Encounter - Mathieu Virgen MD - 08/05/2024 3:52 PM EST printed [facility]11-19-2024 Telephone encounter Note* Telephone Encounter - Angelina Bliss RN - 08/05/2024 3:12 PM EST This triage nurse spoke with patient's daughter [employer] is for 2 liters of O2 PRN exertion. Daughter asking if Dr. Virgen can send new order to [employer] for 2 liters Oxygen continuous? Daughter states pt prefers to continue to use the tanks and does not want an electric concentrator, if possible. Daughter states patient does not have any worsening symptoms since recent OV on 07/29/24 and she will update PCP if pt does. Please call daughter Farida when order has been sent to [employer]. Thank you. [facility]11-19-2024 Telephone encounter Note* Telephone Encounter - Marilin Stein MA - 08/05/2024 2:53 PM EST Watch for [employer] paperwork for pt from [employer]. Marilin Stein MA [facility]11-19-2024 Miscellaneous Notes* Telephone Encounter - Marilin Stein MA - 08/05/2024 2:53 PM EST Watch for [employer] paperwork for pt from [employer]. Marilin Stein MA documented in this encounterTrihealth [facility]11-15-2024 Telephone encounter Note * Telephone Encounter - Cristina Abdi LPN - 08/01/2024 12:53 PM EST Prescription Refill Information The patient has been [...] future office visit with this provider/department: Yes 12/19/24 Requested Prescriptions Pending Prescriptions Disp Refills famotidine (PEPCID) 20 mg tablet 180 tablet 1 Sig: Take 1 tablet by mouth two times a day. Cristina Abdi LPN August 01, 2024 12:54 PM [facility]11-15-2024 Miscellaneous Notes* Telephone Encounter - Cristina Abdi LPN - 08/01/2024 12:53 PM EST Prescription Refill Information The patient has been [...] future office visit with this provider/department: Yes 12/19/24 Requested Prescriptions Pending Prescriptions Disp Refills famotidine (PEPCID) 20 mg tablet 180 tablet 1 Sig: Take 1 tablet by mouth two times a day. Cristina Abdi LPN August 01, 2024 12:54 PM documented in this encounterTrihealth [facility]11-15-2024 Telephone encounter Note * Telephone Encounter - Janet King MA - 08/01/2024 11:19 AM EST DaughterFarida, notified of results. Advised her of provider message to keep eye out for tarry, black stools or bright, red blood. She is agreeable with plan. Patient has follow up scheduled in October. Janet King MA August 01, 2024 11:26 AM [facility]11-15-2024 Miscellaneous Notes* Telephone Encounter - Janet Knig MA - 08/01/2024 11:19 AM EST Daughter, Farida, notified of results. Advised her of provider message to keep eye out for tarry, black stools or bright, red blood. She is agreeable with plan. Patient has follow up scheduled in October. Janet King MA August 01, 2024 11:26 AM * Telephone Encounter - Julianna Hood APRN.CNP - 07/31/2024 5:29 PM EST Lab work done July 31, 2024: Sodium 141, potassium 3.6, BUN 22, creatinine 1.26, glucose 119 WBC 8.5, hemoglobin 11.8, hematocrit 38.0, platelet count 282 Neutrophils elevated 72, monocytes elevated 11.5 Magnesium 2.9 Please let patient know that his anemia is a little worse and kidney function is slightly worse. Please report any black tarry stools or bright red bleeding. Also, magnesium is high. Stop any magnesium supplements. documented in this encounterTrihealth [facility]11-14-2024 Telephone encounter Note * Telephone Encounter - Julianna Hood APRN.CNP - 07/31/2024 5:29 PM EST Lab work done July 31, 2024: Sodium 141, potassium 3.6, BUN 22, creatinine 1.26, glucose 119 WBC 8.5, hemoglobin 11.8, hematocrit 38.0, platelet count 282 Neutrophils elevated 72, monocytes elevated 11.5 Magnesium 2.9 Please let patient know that his anemia is a little worse and kidney function is slightly worse. Please report any black tarry stools or bright red bleeding. Also, magnesium is high. Stop any magnesium supplements. [facility]11-12-2024 Instructions* Patient Instructions* Julianna Hood APRN.CNP - 07/29/2024 12:10 PM EST 1) Check labs 2) Start OTC B12 1,000 mcg daily 3) Follow up in 3 months documented in this encounterTrihealth Bethes[facility]11-12-2024 NoteHNO ID: [id number] Author: JULIANNA HOOD APRN.CNP Service: ? Author Type: Clinical Nurse Specialist Type: Progress Notes Filed: 07/31/2024 12:43 Note Text: This is a 79 year old male who presents today with: No chief complaint on file. HISTORY OF PRESENT ILLNESS: Faisal Alarcon is a 79 year old male. No chief complaint on file. Pt. States he had been SOB that was increasing. Went to hospital and found that his heart was weak, Went to urology appt. And they sent him to ER. Feeling a little better since he was sent home. Oxygen has really helped. Wearing it continuous. 2 L continuous. No PND or orthopnea Denies palpitations. Lightheadedness on occasion but improved. No chest pain or pressure. No nausea. No constipation. Admitted to [facility] w/ pulmonary edeam, hypoxia Echo showed EF 70%, stage II diastolic dysfunction Okay I think so yeah looks severe atrial enlargement, mild tricuspid valve insufficiency, right ventricular systolic pressure of 50 mmHg with mild aortic stenosis. He was given IV Lasix, fluid restriction, sodium restriction, daily weights, supplemental oxygen. He was placed on supplemental oxygen with oxygen dropping to 86% with exertion. Daughter says 88 at home with exertion. Brain natruretic peptide was only mildly increased. Leukocytosis- WBC was elevated on discharge but no signs of infection. COVID, flu, respiratory viral panels are unremarkable and urinalysis is not consistent with infection Mild anemia with stable-no workup Blood sugars remain elevated. Home on oral agents and has home insulin. Jardiance was added both the benefit his heart failure and is high glucose. Sleep apnea does have sleep apnea but has been noncompliant. The CPAP machine that he has at home is his 's. Paroxysmal atrial fibrillation, continue carvedilol, Cardizem, flecainide, and DOAC Hypertension Overactive bladder BPH Bladder cancer s/p resection GERD Obesity DVT prophylaxis Medications were reconciled. Lab work: WBC 13.3, hemoglobin 12.3, hematocrit 38.3, platelet count 360 Sodium 138, potassium 3.2, BUN 37, creatinine 1.07, glucose 114 Patient was discharged on fluid restriction, low-fat, low-cholesterol with a 2 L or less daily intake of fluids and 3 g sodium diet, 1800-calorie ADA PAST MEDICAL HISTORY: PAST MEDICAL HISTORY Diagnosis [...] Amoxicillin MEDICATIONS Current Outpatient Medications Medication Sig losartan (COZAAR) 100 mg tablet Take 1 tablet by mouth every afternoon. JARDIANCE 25 mg tablet Take 25 mg by mouth daily with breakfast. furosemide (LASIX) 40 mg tablet Take 1 tablet by mouth every afternoon. OTC NUTRITIONAL SUPPLEMENT NUVOFLEX TURMERIC ORAL Take by mouth. tamsulosin (FLOMAX) 0.4 mg Take 1 capsule by mouth every 12 hours. solifenacin 10 mg tablet Take 1 tablet by mouth every afternoon. carvedilol (COREG) 25 mg tablet Take 1 tablet by mouth two times a day. ELIQUIS 5 mg tab(s) Take 1 tablet by mouth two times a day. Blood-Glucose Meter,Continuous (FREESTYLE MARIELLE 3 READER) [facility] Use to check blood sugar at least four (4) times daily. Uses insulin Blood-Glucose Sensor (FREESTYLE MARIELLE 3 PLUS SENSOR) [facility] Apply new sensor every fifteen (15) days to upper arm. colestipol (COLESTID) 1 gram tablet Take 1 tablet by mouth once daily. albuterol HFA (VENTOLIN HFA) 90 mcg/actuation inhaler Inhale 2 Puffs as instructed every 4 hours as needed. famotidine (PEPCID) 20 mg tablet Take 1 tablet by mouth two times a day. insulin lispro (HUMALOG KWIKPEN INSULIN) 100 unit/mL Inject 20 Units subcutaneously three times a day before meals. Getting through [facility] (Patient taking differently: Inject 26 Units subcutaneously three times a day before meals. Getting through [facility]) dilTIAZem CD (CARDIZEM CD, CARTIA XT) 120 mg 24 hr capsule Take 1 capsule by mouth once daily. metFORMIN ER (GLUCOPHAGE XR) 500 mg 24 hr tablet Take 2 tablets by mouth two times a day before meals. simvastatin (ZOCOR) 40 mg tablet Take 1 tablet by mouth daily at bedtime. flecaini (more content not included)...[facility]11-12-2024 History of Present illness Narrative* Julianna Hood APRN.RN ORTHOPAEDIC - 07/29/2024 11:36 AM EST This is a 79 year old male who presents today with: No chief complaint on file. HISTORY OF PRESENT ILLNESS: Faisal Alarcon is a 79 year old male. No chief complaint on file. Pt. States he had been SOB that was increasing. Went to hospital and found that his heart was weak, Went to urology appt. And they sent him to ER. Feeling a little better since he was sent home. Oxygen has really helped. Wearing it continuous. 2 L continuous. No PND or orthopnea Denies palpitations. Lightheadedness on occasion but improved. No chest pain or pressure. No nausea. No constipation. Admitted to [facility] w/ pulmonary edeam, hypoxia Echo showed EF 70%, stage II diastolic dysfunction Okay I think so yeah looks severe atrial enlargement, mild tricuspid valve insufficiency, right ventricular systolic pressure of 50 mmHg with mild aortic stenosis. He was given IV Lasix, fluid restriction, sodium restriction, daily weights, supplemental oxygen. He was placed on supplemental oxygen with oxygen dropping to 86% with exertion. Daughter says 88 athome with exertion. Brain natruretic peptide was only mildly increased. Leukocytosis- WBC was elevated on discharge but no signs of infection. COVID, flu, respiratory viral panels are unremarkable and urinalysis is not consistent with infection Mild anemia with stable-no workup Blood sugars remain elevated. Home on oral agents and has home insulin. Jardiance was added both the benefit his heart failure and is high glucose. Sleep apnea does have sleep apnea but has been noncompliant. The CPAP machine that he has at home is his 's. Paroxysmal atrial fibrillation, continue carvedilol, Cardizem, flecainide, and DOAC Hypertension Overactive bladder BPH Bladder cancer s/p resection GERD Obesity DVT prophylaxis Medications were reconciled. Lab work: WBC 13.3, hemoglobin 12.3, hematocrit 38.3, platelet count 360 Sodium 138, potassium 3.2, BUN 37, creatinine 1.07, glucose 114 Patient was discharged on fluid restriction, low-fat, low-cholesterol with a 2 L or less daily intake of fluids and 3 g sodium diet, 1800-calorie ADA PAST MEDICAL HISTORY: PAST MEDICAL HISTORY Diagnosis [...] Amoxicillin MEDICATIONS Current Outpatient Medications Medication Sig losartan (COZAAR) 100 mg tablet Take 1 tablet by mouth every afternoon. JARDIANCE 25 mg tablet Take 25 mg by mouth daily with breakfast. furosemide (LASIX) 40 mg tablet Take 1 tablet by mouth every afternoon. OTC NUTRITIONAL SUPPLEMENT NUVOFLEX TURMERIC ORAL Take by mouth. tamsulosin (FLOMAX) 0.4 mg Take 1 capsule by mouth every 12 hours. solifenacin 10 mg tablet Take 1 tablet by mouth every afternoon. carvedilol (COREG) 25 mg tablet Take 1 tablet by mouth two times a day. ELIQUIS 5 mg tab(s) Take 1 tablet by mouth two times a day. Blood-Glucose Meter,Continuous (FREESTYLE MARIELLE 3 READER) [facility] Use to check blood sugar at least four (4) times daily. Uses insulin Blood-Glucose Sensor (FREESTYLE MARIELLE 3 PLUS SENSOR) sayra Apply new sensor every fifteen (15) days to upper arm. colestipol (COLESTID) 1 gram tablet Take 1 tablet by mouth once daily. albuterol HFA (VENTOLIN HFA) 90 mcg/actuation inhaler Inhale 2 Puffs as instructed every 4 hours asneeded. famotidine (PEPCID) 20 mg tablet Take 1 tablet by mouth two times a day. insulin lispro (HUMALOG KWIKPEN INSULIN) 100 unit/mL Inject 20 Units subcutaneously three times a day before meals. Getting through [facility] (Patient taking differently: Inject 26 Units subcutaneously three times a day before meals. Getting through [facility]) dilTIAZem CD (CARDIZEM CD, CARTIA XT) 120 [...] mouth every 12 hours. Prescribed by outside envelope folder insulin glargine (BASAGLAR KWIKPEN U-100 INSULIN) 100 unit/mL (3 mL) Inject 90 Units subcutaneouslydaily at bedtime. (Patient taking differently: Inject 60 Units subcutaneously daily at bedtime.) finasteride (PROSCAR) 5 mg tablet aspirin 81 [...] date: 09/17/1970 Quit date: 09/17/1980 Years since quittin.8 Smokeless tobacco: Never Vaping Use Vaping status: Never Used Substance Use Topics Alcohol use: No Drug use: No Weight loss in hospital, none now- steady No fever or chills Sleep consult placed- has appt. Some SOB but better on continuous O2 Bowels and bladder working well Falls asleep easily during vist. Some swelling in feet EXAM: BP 142/70 Pulse 70 Resp 24 Wt 135.2 kg (298 lb) SpO2 92% BMI 39.32 kg/m PHYSICAL EXAM: Physical Exam Vitals reviewed. Constitutional: Appearance: Normal appearance. He is obese. He is not ill-appearing, toxic- appearing or diaphoretic. HENT: Head: Normocephalic. Cardiovascular: Rate and Rhythm: Normal rate and regular rhythm. Pulses: Normal pulses. Heart sounds: Normal heart sounds. No gallop. Comments: Very distant heart sounds, more diminished at apex Pulmonary: Effort: Pulmonary effort is normal. Breath sounds: Normal breath sounds. Abdominal: General: Bowel sounds are normal. There is no distension. Palpations: Abdomen is soft. Tenderness: There is no abdominal tenderness. Musculoskeletal: General: Normal range of motion. Comments: No edema Moves all ext. Generalized weakness Right hip OA- ongoing pain Skin: General: Skin is warm and dry. Neurological: Mental Status: He is alert and oriented to person, place, and time. Psychiatric: Mood and Affect: Mood normal. Behavior: Behavior normal. Comments: Falls asleep easily LABS: B12 low ASSESSMENT/PLAN: 1. 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 Systolic congestive heart failure, unspecified HF chronicity (HCC) - ICD9: 428.20, 428.0, ICD10:I50.20 - HFpEF 50+ - applying for empagliflozin assistance - FUROSEMIDE 40 MG TABLET - BASIC METABOLIC PANEL - MAGNESIUM - COMPLETE BLOOD COUNT AND DIFFERENTIAL 3. Essential hypertension - ICD9: 401.9, ICD10: I10 - Controlled - Recommend home blood pressure monitoring, to bring results to next visit - Encouraged sodium restriction, DASH or Mediterranean diet - Recommend regular aerobic exercise - LOSARTAN 100 MG TABLET 4. Paroxysmal atrial fibrillation (HCC) - ICD9: 427.31, ICD10: I48.0 anticoagulated 5. Restrictive lung disease - ICD9: 518.89, ICD10: J98.4 On continuous home O2 6. Schizophrenia, chronic condition (HCC) - ICD9: 295.62, ICD10: F20.9 Stable 7. Chronic anticoagulation - ICD9: V58.61, ICD10: Z79.01 On DOAC 8. Diastolic congestive heart failure, unspecified HF chronicity (HCC) - ICD9: 428.30, 428.0, ICD10: I50.30 - HFpEF 50+ - Continue current medications and applying for assistance for - EMPAGLIFLOZIN 25 MG TABLET 9. Iron deficiency anemia, unspecified iron deficiency anemia type - ICD9: 280.9, ICD10: D50.9 Check level 10. Vitamin B12 deficiency - ICD9: 266.2, ICD10: E53.8 Add B 12 1,000 mcg daily Discussed treatment plan and patient voices understanding. Patient's questions answered appropriately. Medications and potential side effects were discussed and patient voices understanding. Return to the office as scheduled or as needed for worsening/no improvement. Julianna Hood APRN.RN ORTHOPAEDIC documented in this encounterTri[facility]10-25-2024 [facility]10-23-2024 Telephone encounter Note* Telephone Encounter - Jaylene Henley LPN - 07/09/2024 10:37 AM EDT Prescription Refill Information The patient has been [...] tablet by mouth two times a day. Jaylene Henley LPN July 09, 2024 10:38 AM [facility]10-23-2024 Miscellaneous Notes* Telephone Encounter - Jaylene Henley LPN - 07/09/2024 10:37 AM EDT Prescription Refill Information The patient has been [...] tablet by mouth two times a day. Jaylene Henley LPN July 09, 2024 10:38 AM documented in this encounterTrihealth [facility]10-08-2024 Telephone encounter Note * Telephone Encounter - Osvaldo Regalado RN - 06/24/2024 4:23 PM EDT Daughter returned call and given provider's message below with verbalized understanding. Daughter agreeable. Scheduled lab appt in 1 mth. [facility] Miscellaneous Notes* Telephone Encounter - Osvaldo Regalado RN - 06/24/2024 4:23 PM EDT Daughter returned call and given provider's message below with verbalized understanding. Daughter agreeable. Scheduled lab appt in 1 mth. * Telephone Encounter - Miley Pemberton MA - 06/24/2024 9:50 AM EDT Tried to reach pt, VM full, unable to leave message or call back number. Mychart message sent to pt, asking them to call back for results. Miley Pemberton MA * Telephone Encounter - Kennedi Frey LPN - 06/23/2024 2:07 PM EDT Attempted to reach pt by phone without success. Mailbox is full. Try later. Kennedi Frey LPN * Telephone Encounter - Kennedi Frey LPN - 06/23/2024 2:07 PM EDT ----- Message from Julianna Hood sent at 06/23/2024 1:51 PM EDT ----- Your vitamin D level is very low. Please consider vboj-nzk-oivya vitamin D3-2000 units daily. Your white blood count is improving but now developing some mild anemia. Please recheck CBC in a month again. documented in this encounterTrihealth [facility]10-08-2024 Telephone encounter Note * Telephone Encounter - Miley Pemberton MA - 06/24/2024 9:50 AM EDT Tried to reach pt, VM full, unable to leave message or call back number. Cerecorhart message sent to pt, asking them to call back for results. Miley Pemberton MA [facility]10-07-2024 Instructions* Patient Instructions* Abril Duval APRN.RN ORTHOPAEDIC - 06/23/2024 3:20 PM EDT Let me know if you would like to schedule a sleep study. We can have it done at [place] or [place]. documented in this encounterTrihealth [facility]10-07-2024 History of Present illness Narrative* Abril Duval APRN.RN ORTHOPAEDIC - 06/23/2024 2:30 PM EDT Images from the original note were not included. [facility] New Patient Evaluation PATIENT NAME: Faisal Alarcon DATE OF SERVICE: June 22, 2024 CONSULTING PROVIDER: Osvaldo Travis [address] [facility] [id number] REASON FOR CONSULT: Osvaldo Travis sends the patient for an opinion about CJ. My findings and recommendations will be transmitted electronically via shared medical record to the consulting provider. HPI: Faisal Alarcon is a 79 year old male. Accompanied by his daughter Farida. Sleep-related history: CJ, unclear if he has [...] population = 50. Five points is a clinicallymeaningful difference.) Physical T-Score 26.7 26.7 Mental T-Score [...] stone with evacuation of stone fragments Dr aDley PAST SURGICAL HISTORY OF RIGHT WRIST SURGERY, [...] two times a day. Blood-Glucose Meter,Continuous (FREESTYLE MARIELLE 3 READER) mis Use to check blood sugar at least four (4) times daily. Uses insulin Blood-Glucose Sensor (FREESTYLE MARIELLE 3 PLUS SENSOR) sayra Apply new sensor [...] 2 Puffs as instructed every 4 hours asneeded. famotidine (PEPCID) 20 mg tablet Take 1 tablet by mouth two times a day. insulin lispro (HUMALOG KWIKPEN INSULIN) 100 unit/mL Inject 20 Units subcutaneously three times a day before meals. Getting through [facility] dilTIAZem CD (CARDIZEM CD, CARTIA XT) [...] mL) Inject 90 Units subcutaneouslydaily at bedtime. finasteride (PROSCAR) 5 mg tablet [...] mouth every 12 hours. Prescribed by outside envelope folder Review of Systems Cardiovascular: Negative for palpitations. [...] untreated CJ including but not limited to FL/HF/CVA, testing for CJ, treatment with PAP therapy. Not a candidate for OAT since he is edentulous. Briefly discussed hypoglossal nerve stimulation ([employer]). We discussed different mask options for PAP. He will consider a PSG, could schedule at [place] or [place], daughter Farida uses mychart for him, she will let me know. Abril Duval APRN.CAESAR documented in this encounterTrihealth [facility]10-07-2024 NoteHNO ID: [id number] Author: ABRIL DUVAL APRN.RN ORTHOPAEDIC Service: ? Author Type: Nurse Practitioner Type: Progress Notes Filed: 06/23/2024 16:46 Note Text: [facility] New Patient Evaluation PATIENT NAME: Faisal Alarcon DATE OF SERVICE: June 22, 2024 CONSULTING PROVIDER: Osvaldo Travis [address] [facility] [address] REASON FOR CONSULT: Osvaldo Travis sends the patient for an opinion about CJ. My findings and recommendations will be transmitted electronically via shared medical record to the consulting provider. HPI: Faisal Alarcon is a 79 year old male. Accompanied by his daughter Farida. Sleep-related history: CJ, unclear if he has [...] two times a day. Blood-Glucose Meter,Continuous (FREESTYLE MARIELLE 3 READER) mis Use to check blood sugar at least four (4) times daily. Uses insulin Blood-Glucose Sensor (FREESTYLE MARIELLE 3 PLUS SENSOR) sayra Apply new sensor [...] inhaler Inhale 2 Puf (more content not included)...[facility]10-07-2024 Telephone encounter Note* Telephone Encounter - Kennedi Frey LPN - 06/23/2024 2:07 PM EDT Attempted to reach pt by phone without success. Mailbox is full. Try later. Kennedi Frey LPN [facility]10-07-[facility] Telephone encounter Note* Telephone Encounter - Kennedi Frey LPN - 06/23/2024 2:07 PM EDT ----- Message from Julianna Hood sent at 06/23/2024 1:51 PM EDT ----- Your vitamin D level is very low. Please consider rkss-gcq-dnctm vitamin D3-2000 units daily. Your white blood count is improving but now developing some mild anemia. Please recheck CBC in a month again. [facility]10-04-2024 NoteHNO ID: [id number] Author: MATHIEU VIRGEN MD Service: ? Author Type: Physician [...] Sees sleep medicine on Sunday. Free style marielle script needs sent through [employer] He is wanting us to send his scooter request to [employer]. They had requested a letter in the [...] times a day before meals. Getting through [employer] dilTIAZem CD (CARDIZEM CD, CARTIA XT) 120 [...] mouth every 12 hours. Prescribed by outside envelope folder No current facility-administered medications for this visit. [...] YRS REDUCIBLE Hernia r (more content not included)...[facility]10-04-2024 History of Present illness Narrative* Mathieu Virgen MD - 06/20/2024 3:38 PM EDT Patient presents with: Diabetes HPI: Patient presents [...] Sees sleep medicine on Sunday. Free style marielle script needs sent through [employer] He is wanting us to send his scooter request to [employer]. They had requested a letter in thepast for one but did not perform a [...] 2 Puffs as instructed every 4 hours asneeded. famotidine (PEPCID) 20 mg tablet Take 1 tablet by mouth two times a day. insulin lispro (HUMALOG KWIKPEN INSULIN) 100 unit/mL Inject 20 Units subcutaneously three times a day before meals. Getting through [facility] dilTIAZem CD (CARDIZEM CD, CARTIA XT) [...] mL) Inject 90 Units subcutaneouslydaily at bedtime. finasteride (PROSCAR) 5 mg tablet [...] mouth every 12 hours. Prescribed by outside envelope folder No current facility-administered medications for this visit. [...] history andsocial history today. REVIEW OF SYSTEMS Just saw eye doc and had some retinopathy. All other reviewed and negative other than HPI. HEALTH MAINTENANCE: Reviewed health maintenance issues today and recommended the following in detail. BP Controlled (<130/80) Never done DTaP,Tdap,Td Vaccine(1 - Tdap) Never done Shingrix Vaccine(1 of 2) Never done Influenza Vaccine(1) due on 05/18/2024 Covid-19 Vaccine( - season) Never done Diabetic Foot Exam due on 06/06/2024 VITALS: BP 132/56 Pulse 80 Ht 185.4 cm (6' 1) Wt (!) 136.7 kg (301 lb 6.4 oz) SpO2 94% BMI 39.76kg/m Last 4 Encounter Wt Readings: Date: Wt: [...] 250.40, 791.0, ICD10: E11.29, R80.9 - FREESTYLE MARIELLE 3 READER - FREESTYLE MARIELLE 3 PLUS SENSOR DEVICE 5. Other psoriasis [...] L40.50 - DME SUPPLY OR ACCESSORY, NOS Mathieu Virgen MD documented in this encounterTrihealth [facility]10-04-2024 Telephone encounter Note * Telephone Encounter - Renetta Gant MA - 06/20/2024 1:34 PM EDT Patient phones requesting refills as follows: Requested Prescriptions Pending Prescriptions Disp Refills ELIQUIS 5 mg tab(s) 60 tablet 1 Sig: Take 1 tablet by mouth two times a day. Please review and advise. Renetta Gant MA [facility]10-04-2024 Miscellaneous Notes* Telephone Encounter - Renetta Gant MA - 06/20/2024 1:34 PM EDT Patient phones requesting refills as follows: Requested Prescriptions Pending Prescriptions Disp Refills ELIQUIS 5 mg tab(s) 60 tablet 1 Sig: Take 1 tablet by mouth two times a day. Please review and advise. Renetta Gant MA documented in this encounterTrihealth [facility]10-04-2024 Telephone encounter Note * Telephone Encounter - Jaylene Henley LPN - 06/20/2024 11:23 AM EDT Patient has visit today. Clinical staff can follow up with daughter at visit. [facility]10-04-2024 Miscellaneous Notes* Telephone Encounter - Jalyene Henley LPN - 06/20/2024 11:23 AM EDT Patient has visit today. Clinical staff can follow up with daughter at visit. * Telephone Encounter - Angelina Bliss RN - 06/18/2024 4:28 PM EDT Patient's daughter Farida Beck calling and requesting to speak specifically with PCP nurse, Jaylene. This is in regard to patient's scooter and pt's insurance. Farida [phone]. Thank you. documented in this encounterTrihealth [facility]10-02-2024 Telephone encounter Note * Telephone Encounter - Angelina Bliss RN - 06/18/2024 4:28 PM EDT Patient's daughter Farida Beck calling and requesting to speak specifically with PCP nurseJaylene. This is in regard to patient's scooter and pt's insurance. Farida [phone]. Thank you. [facility]10-01-2024 Telephone encounter Note* Telephone Encounter - Kennedi Frey LPN - 06/17/2024 9:36 AM EDT Received a call from Alison with [facility]. PH: [phone]. She reports receiving information on a scooter. Alison reports this has to go thru pt's [employer] and they will fax all information with details to [facility] [place] to be done. I called daughter Farida and she reports they are using [employer] fax:[phone] PH: [phone] Spoke with Amairani and after they received the fax they will go thru it and send forms to be filled out and once those have been returned they will send to [facility] . Information fas been faxed. Kennedi Frey LPN [facility]10-01-2024 Miscellaneous Notes* Telephone Encounter - Kennedi Frey LPN - 06/17/2024 9:36 AM EDT Received a call from Alison with [facility] [employer]. PH: [phone]. She reports receiving information on a scooter. Alison reports this has to go thru pt's [employer] and they will fax all information with details to [facility] to be done. I called daughter Farida and she reports they are using [employer] fax:[phone] PH: [phone] Spoke with Amairani and after they received the fax they will go thru it and send forms to be filled out and once those have been returned they will send to [facility] . Information fas been faxed. Kennedi Frey LPN documented in this encounterTrihealth [facility]09-30-2024 Telephone encounter Note * Telephone Encounter - Jaylene Henley LPN - 06/16/2024 4:24 PM EDT Will fax letter again as requested. [facility]-30[facility] Miscellaneous Notes* Telephone Encounter - Jaylene Henley LPN - 06/16/2024 4:24 PM EDT Will fax letter again as requested. documented in this encounterTrihealth [facility]09-23-2024 Telephone encounter Note * Telephone Encounter - Julianna Lynn LPN - 06/09/2024 8:49 AM EDT Prescription Refill Information The patient has been [...] Lynn LPN June 09, 2024 8:49 AM [facility]-23-[facility] Miscellaneous Notes* Telephone Encounter - Julianna Lynn LPN - 06/09/2024 8:49 AM EDT Prescription Refill Information The patient has been [...] 09, 2024 8:49 AM documented in this encounterTrihealth [facility]09-14-2024 NoteHNO ID: [id number] Author: AMAIRANI MCCLENDON APRN.RN ORTHOPAEDIC Service: ? Author Type: Nurse Practitioner Type: [...] care plan. Patient's caregiver will take him now.[facility]09-14-2024 History of Present illness Narrative* Amairani Mcclendon APRN.RN ORTHOPAEDIC - 05/31/2024 8:57 AM EDT Patient came in with complaints of lightheadedness dizziness and weakness. Patient says he feels like he collapsed. Patient does have significant cardiac history including A-fib. At this time patientis being referred to the ER for full evaluation. Patient was okay with this care plan. Patient's caregiver will take him now. documented in this encounterTrihealth [facility]09-14-2024 Telephone encounter Note * Telephone Encounter - Narda Theodore RN - 05/31/2024 6:21 AM EDT Reason for Call: Family states that patient feels dizzy and near syncopal at this time and too weekto stand with a blood pressure of 101/49. Outcome: Family advised to call 911 now for patient per guidelines. Family verbalized understandingof recommendation and care advice and will be calling 911 immediately. Reason for Disposition Shock suspected (e.g., cold/pale/clammy skin, too weak to stand, low BP, rapid pulse) Protocols used: Dizziness - [id number] [facility]09-14-2024 Miscellaneous Notes* Telephone Encounter - Narda Theodore RN - 05/31/2024 6:21 AM EDT Reason for Call: Family states that patient feels dizzy and near syncopal at this time and too weekto stand with a blood pressure of 101/49. Outcome: Family advised to call 911 now for patient per guidelines. Family verbalized understandingof recommendation and care advice and will be calling 911 immediately. Reason for Disposition Shock suspected (e.g., cold/pale/clammy skin, too weak to stand, low BP, rapid pulse) Protocols used: Dizziness - [id number] documented in this encounterTrihealth [facility]08-22-2024 [facility]08-21-2024 [facility]08-19-2024 Telephone encounter Note* Telephone Encounter - Christian Bob LPN - 05/05/2024 5:34 PM EDT Prescription Refill Information The patient has been [...] Bob LPN May 05, 2024 5:34 PM [facility]08-19-2024 Miscellaneous Notes* Telephone Encounter - Christian Bob LPN - 05/05/2024 5:34 PM EDT Prescription Refill Information The patient has been [...] 05, 2024 5:34 PM documented in this encounterTrihealth [facility]07-29-2024 Telephone encounter Note * Telephone Encounter - Christian Bob LPN - 04/14/2024 11:53 AM EDT Prescription Refill Information The patient has been [...] Bob LPN April 14, 2024 11:53 AM [facility]-29-[facility] Miscellaneous Notes* Telephone Encounter - Christian Bob LPN - 04/14/2024 11:53 AM EDT Prescription Refill Information The patient has been [...] 14, 2024 11:53 AM documented in this encounterTrihealth Bethes[facility]07-26-2024 NoteHNO ID: [id number] Author: MAGALIE BARDALES, DO Service: ? Author Type: Physician Type: Progress Notes Filed: 04/11/2024 17:32 Note Text: Virtualist Progress Note Triage Call I have communicated my name and active licensure. The patient's identity and physical location were verified at the time of this visit. Either the patient or their legal service support representative has been informed of the risks and benefits of -- and alternatives to -- treatment through a remote evaluation and consents to proceed with the evaluation remotely. Triage source: Triage Call (Nurse Building Performance Specialist, Medical Care at Home - NOC Triage, [facility] Triage, [facility] [place] Phone Triage) Was patient downgraded (i.e. disposition other than go to the ED was advised)? Yes Mode of contact: Audio Only Visit History/Physical Exam: 79 y/o male presents with hematuria. Went to ER in [place] yesterday. No records on care everywhere. Daughter [...] his daughter is considering taking him to [place] to see if he can have cystoscopy. I stated that if he does not feel well that is a good option. Also rec scheduling an appt for next week and she can always cancel if not needed Nurse Triage Disposition (If call is from [facility], [facility] nurse triage, or an Express Care, the disposition is Go to ED Now): Go to ED Now (or PCP Triage) Virtualist Recommended Disposition: See Provider > 2 days Signed in as Primary Virtualist, Secondary Virtualist, or [facility] Telehealth provider: [facility]07-26-2024 History of Present illness Narrative* Magalie Bardales, DO - 04/11/2024 5:27 PM EDT Virtualist Progress Note Triage Call I have communicated my name and active licensure. The patient's identity and physical location wereverified at the time of this visit. Either the patient or their legal service support representative has been informed of the risks and benefits of -- and alternatives to -- treatment through a remote evaluation andconsents to proceed with the evaluation remotely. Triage source: Triage Call (Nurse Building Performance Specialist, Medical [facility] at Home - NOC Triage, [facility] Triage, [facility] Phone Triage) Was patient downgraded (i.e. disposition other than go to the ED was advised)? Yes Mode of contact: Audio Only Visit History/Physical Exam: 79 y/o male presents with hematuria. Went to ER in [place] yesterday. No records on care everywhere. Daughter [...] his daughter is considering taking him to [facility] ER to see if he can have cystoscopy. I stated that if he does not feel well that is a good option. [facility] scheduling an appt for next week and she can always cancel if not needed Nurse Triage Disposition (If call is from [facility], [facility] nurse triage, or an [facility] Care, the disposition is Go to ED Now): Go to ED Now (or PCP Triage) Virtualist Recommended Disposition: See Provider > 2 days Signed in as Primary Virtualist, Secondary Virtualist, or [facility] Telehealth provider: Secondary documented in this encounterTrihealth [facility] Telephone encounter Note * Telephone Encounter - Randi Turner RN - 04/11/2024 4:49 PM EDT Reason for Call: Patient and daughter calling with concerns of blood in urine Outcome: Recommendation to see HCP or PCP Triage within 4 hours Daughter refused ED. Stated they went to [place] ED yesterday and they could not do a Cystoscopy. Has appointment with Urology 04/29. Recommended [facility] ED, daughter wanted to speak to provider Name of Provider contacted for further advice: Dr. Magalie Bardales Provider's recommendation: PCP office visit Sunday or Sunday, go to ED if worsening symptoms Patient was conferenced to [place] in Appointment Center for Sunday appointment scheduling. [...] today Protocols used: Urine - Blood In-ADULT- [facility]07-26-[facility]24 Miscellaneous Notes* Telephone Encounter - Randi Turner RN - 04/11/2024 4:49 PM EDT Reason for Call: Patient and daughter calling with concerns of blood in urine Outcome: Recommendation to see HCP or PCP Triage within 4 hours Daughter refused ED. Stated they went to [place] ED yesterday and they could not do a Cystoscopy. Has appointment with Urology 04/29. Recommended [facility] ED, daughter wanted to speak to provider Name of Provider contacted for further advice: Dr. Magalie Bardales Provider's recommendation: PCP office visit Sunday or Sunday, go to ED if worsening symptoms Patient was conferenced to [facility] for Sunday appointment scheduling. Reason [...] Urine - Blood In-ADULT- documented in this encounterTrihealth Bethes[facility]07-26-2024 Telephone encounter Note * Telephone Encounter - Najma Mcclendon MA - 04/11/2024 8:02 AM EDT Prescription Refill Information The patient has been [...] Mcclendon MA April 11, 2024 8:02 AM [facility]07-26-2024 Miscellaneous Notes* Telephone Encounter - Najma Mcclendon MA - 04/11/2024 8:02 AM EDT Prescription Refill Information The patient has been [...] 11, 2024 8:02 AM documented in this encounterTrihealth Bethes[facility]07-24-2024 NoteHNO ID: [id number] Author: ANDREW GUALLPA APRN.RN ORTHOPAEDIC Service: ? Author Type: Nurse Practitioner Type: [...] times a day before meals. Getting through [facility] dilTIAZem CD (CARDIZEM CD, CARTIA XT) [...] mouth every 12 hours. Prescribed by outside envelope folder colestipol (COLESTID) 1 gram tablet Take 1 [...] vision, pain, dis (more content not included)... [facility]07-24-2024 History of Present illness Narrative* Andrew Guallpa APRN.RN ORTHOPAEDIC - 04/09/2024 2:29 PM EDT Images from the original note were not included. Subjective HPI Nontoxic-appearing male presents urgent care chief complaint left hand injury. Patient states was shutting door when he scraped his hand on the door frame. Presents today for evaluation. Has an abrasion on his hand. Does take blood thinning medications. States area was more swollen and swelling hasimproved. No numbness no tingling. Denies any other [...] 2 Puffs as instructed every 4 hours asneeded. famotidine (PEPCID) 20 mg tablet Take 1 tablet by mouth two times a day. diclofenac (VOLTAREN ARTHRITIS PAIN) 1 % topical gel Apply 2 g to affected area four times daily. insulin lispro (HUMALOG KWIKPEN INSULIN) 100 unit/mL Inject 20 Units subcutaneously three times a day before meals. Getting through [facility] dilTIAZem CD (CARDIZEM CD, CARTIA XT) [...] mouth every 12 hours. Prescribed by outside envelope folder colestipol (COLESTID) 1 gram tablet Take 1 tablet by mouth once daily. insulin glargine (BASAGLAR KWIKPEN U-100 INSULIN) 100 unit/mL (3 mL) Inject 90 Units subcutaneouslydaily at bedtime. finasteride (PROSCAR) 5 mg tablet [...] mouth once daily. (Patient not taking: Reported on04/09/2024) furosemide (LASIX) 40 mg tablet Take 1 tablet by mouth once daily. (Patient not taking: Reported on02/28/2024) FAMILY HISTORY Problem Relation Age of Onset [...] of care. This note was generated using Endosense software. It may contain errors in wording, punctuation, or spelling. Andrew Guallpa APRN.RN ORTHOPAEDIC documented in this encounterTrihealth [facility]07-08-2024 Telephone encounter Note * Telephone Encounter - Mathieu Virgen MD - 03/24/2024 4:59 PM EDT Reviewed venous insuffiencey and labs. His diltiazem may be contributing. Offered to see him if need be. Discussed compression hose. Keep cool and elevated. Offered vascular eval as well. Daughter's questions answered. [facility]07-08-2024 Miscellaneous Notes* Telephone Encounter - Mathieu Virgen MD - 03/24/2024 4:59 PM EDT Reviewed venous insuffiencey and labs. His diltiazem may be contributing. Offered to see him if need be. Discussed compression hose. Keep cool and elevated. Offered vascular eval as well. Daughter's questions answered. * Telephone Encounter - Jaylene Henley LPN - 03/24/2024 4:07 PM EDT This is her response to the message that Prosper sent from his lab results on 02/28/24. * Telephone Encounter - Marilin Stein MA - 03/22/2024 8:27 AM EDT Please review message regarding pt. Marilin Stein MA documented in this encounterTrihealth Bet[facility]07-08-2024 Telephone encounter Note * Telephone Encounter - Jaylene Henley LPN - 03/24/2024 4:07 PM EDT This is her response to the message that Prosper sent from his lab results on 02/28/24. [facility]07-06-2024 Telephone encounter Note* Telephone Encounter - Marilin Stein MA - 03/22/2024 8:27 AM EDT Please review message regarding pt. Marilin Stein MA [facility]07-05-2024 Telephone encounter Note* Telephone Encounter - Reanna Brannon RN - 03/21/2024 1:17 PM EDT Patient's daughter notified of results and provider's instructions. Patient daughter verbalizes understanding. Reanna Brannon RN [facility]07-05-2024 Miscellaneous Notes* Telephone Encounter - Reanna Brannon RN - 03/21/2024 1:17 PM EDT Patient's daughter notified of results and provider's instructions. Patient daughter verbalizes understanding. Reanna Brannon RN * Telephone Encounter - Osvaldo Regalado RN - 03/21/2024 1:05 PM EDT Left vm on daughters vm to return call to nurse for provider's message, regarding patient's US results. * Telephone Encounter - Osvaldo Travis PA-C - 03/21/2024 9:03 AM EDT Please advise: Ultrasound showed as expected venous [...] pumps to reduce swelling. Telephone on 03/21/24 [employer] [facility] KNEE HI 30-40WT CONSULT TO LYMPHEDEMA THERAPY Venous incompetence (primary encounter diagnosis) Lymphedema of left leg Varicose veins of both legs with edema Prosper Patel PA-C documented in this encounterTrihealth [facility]hes[facility]07-05-2024 Telephone encounter Note * Telephone Encounter - Osvaldo Regalado RN - 03/21/2024 1:05 PM EDT Left vm on daughters vm to return call to nurse for provider's message, regarding patient's US results. [facility]07-05-[facility] Telephone encounter Note* Telephone Encounter - Osvaldo Travis PA-C - 03/21/2024 9:03 AM EDT Please advise: Ultrasound showed as expected venous [...] pumps to reduce swelling. Telephone on 03/21/24 [employer] [place] KNEE HI 30-40WT CONSULT TO LYMPHEDEMA THERAPY Venous incompetence (primary encounter diagnosis) Lymphedema of left leg Varicose veins of both legs with edema Prosper Patel PA-C [facility]07-03-2024 Telephone encounter Note* Telephone Encounter - Kennedi Frey LPN - 03/19/2024 9:20 AM EDT Daughter notified with results below and report faxed to [place] [facility]. Kennedi Frey LPN [facility]07-03-2024 Miscellaneous Notes* Telephone Encounter - Kennedi Frey LPN - 03/19/2024 9:20 AM EDT Daughter notified with results below and report faxed to [place]. Kennedi Frey LPN * Telephone Encounter - Osvaldo Regalado, NILDA - 03/19/2024 8:18 AM EDT Phoned patient and given provider's message below. Patient reports he is COWLITZ and asked this nurse to call his daughter, Farida, to give her the message. Left vm on Farida's vm asking her to return call to triage nurse for provider's message. * Telephone Encounter - Osvaldo Travis PA-C - 03/19/2024 6:00 AM EDT Please advise Faisal that his echo shows normal pumping power though slightly less than prior study. The left ventricle is a little beefy which usually comes from high blood pressure, but he also mildto moderate aortic valve stenosis meaning the heart has to work harder to pump through that narrowed space: also a little worse than last time with some calcification on the valve. The peak gradient is 32mmHg, up from 13 mmHg. He follows with [place] [facility]: please have him follow up with them in next few months and please have the echo sent there for them to review. Thanks, Prosper Travis PA-C documented in this encounterTrihealth Bethes[facility]07-03-2024 Telephone encounter Note * Telephone Encounter - Osvaldo Regalado, RN - 03/19/2024 8:18 AM EDT Phoned patient and given provider's message below. Patient reports he is COWLITZ and asked this nurse to call his daughter, Farida, to give her the message. Left vm on Farida's vm asking her to return call to triage nurse for provider's message. [facility]07-03-2024 Telephone encounter Note* Telephone Encounter - Osvaldo Travis PA-C - 03/19/2024 6:00 AM EDT Please advise Faisal that his echo shows normal pumping power though slightly less than prior study. The left ventricle is a little beefy which usually comes from high blood pressure, but he also mildto moderate aortic valve stenosis meaning the heart has to work harder to pump through that narrowed space: also a little worse than last time with some calcification on the valve. The peak gradient is 32mmHg, up from 13 mmHg. He follows with [place] [facility]: please have him follow up with them in next few months and please have the echo sent there for them to review. Thanks, Prosper Travis PA-C [facility]06-20-[facility] Telephone encounter Note* Telephone Encounter - Nasra Muñiz LPN - 03/06/2024 10:21 AM EDT Patient contacted pharmacy and requests refills as [...] date of : No Nasra Muñiz LPN [facility]06-20-2024 Miscellaneous Notes* Telephone Encounter - Nasra Muñiz LPN - 03/06/2024 10:21 AM EDT Patient contacted pharmacy and requests refills as [...] No Nasra Muñiz LPN documented in this encounterTrihealth [facility]06-13-2024 History of Present illness Narrative* Osvaldo Travis PA-C - 02/28/2024 11:00 AM EDT 78 year old male with c/ohx non-obstructive [...] feet walking with dyspnea- not new. Sees [place] [facility], last visit 10/24/2023: Notes identified paroxysmal [...] Lymph 1.00 - 4.00 k/uL 2.31 1.59 [place]% % 11.1 11.1 Abs [place] <0.87 k/uL 1.14 (H) 1.24 (H) Eosin% [...] 2 Puffs as instructed every 4 hours asneeded. 1 Each 1 famotidine (PEPCID) 20 mg [...] times a day before meals. Getting through [facility] 5 Each 1 dilTIAZem CD (CARDIZEM [...] mouth every 12 hours. Prescribed by outside envelope folder 60 tablet 0 colestipol (COLESTID) 1 gram tablet Take 1 tablet by mouth once daily. 90 tablet 3 insulin glargine (BASAGLAR KWIKPEN U-100 INSULIN) 100 unit/mL (3 mL) Inject 90 Units subcutaneouslydaily at bedtime. 15 mL 3 finasteride (PROSCAR) [...] then daily [facility] 40 MG TABLET - BASIC METABOLIC PANEL - NT PRO BNP - US VENOUS INCOMPETENCY [facility] 2. Venous incompetence - ICD9: [...] completed. Osvaldo Travis PA-C documented in this encounterTrihealth [facility]05-28-2024 Telephone encounter Note * Telephone Encounter - Janet King MA - 02/12/2024 5:11 PM EDT Patient's daughter was made aware of the results and verbalizes understanding. Janet King Ma [facility]05-28-2024 Miscellaneous Notes* Telephone Encounter - Janet King MA - 02/12/2024 5:11 PM EDT Patient's daughter was made aware of the results and verbalizes understanding. Janet iKng Ma * Telephone Encounter - Mathieu Virgen MD - 02/12/2024 4:31 PM EDT Check weight daily and call if weight goes up over three lbs in 24 hours. Call if worsening swelling or shortness of breath. His EKG is unchanged. It was read the day he was here when Prosper saw him. * Telephone Encounter - Angelina Bliss RN - 02/12/2024 8:41 AM EDT Triage protocol Recommended: Provider to Advise. Please call pt's daughter Farida Beck with response. Thank you. Reason for Disposition Nursing judgment or information in reference Answer Assessment - Initial Assessment Questions Spoke with pt's daughter Farida Beck and patient-both were on phone together. 1. Daughter would like to inform Prosper Travis that patient completed his 5 day Lasix regimen that Prosper ordered for last week. Pt is down a total of 5 lbs since OV on 02/03 but legs and ankles remainswollen but a little bit better. SOB with exertion continues, has not worsened. [...] days as ordered Protocols used: No Guideline Fpchemzgy-[id number] * Telephone Encounter - Angelina Bliss RN - 02/12/2024 8:12 AM EDT Message left for pt's daughter Farida Beck, to call provider's office and ask for a nurse to discussMC message received on 01/11/24, regarding patient, as copied: Faisal Alarcon to P Wstr Famp My Chart Rx Pool (supporting M Kelvin Travis PA-C) 02/10/24 2:56 PM Hi Mr. Travis, After the five days of being on lasiks, dad has only lost three pounds. His ankles and feet are still swollen. So still have concern regarding this. Also, his EKG Rhythm Strip is quite concerning to me. Please advise! Angelina Bliss RN documented in this encounterTrihealth Bet[facility]05-28-2024 Telephone encounter Note * Telephone Encounter - Mathieu Virgen MD - 02/12/2024 4:31 PM EDT Check weight daily and call if weight goes up over three lbs in 24 hours. Call if worsening swelling or shortness of breath. His EKG is unchanged. It was read the day he was here when Prosper saw him. [facility]05-28-[facility] Telephone encounter Note* Telephone Encounter - Angelina Bliss RN - 02/12/2024 8:41 AM EDT Triage protocol Recommended: Provider to Advise. Please call pt's daughter Farida Beck with response. Thank you. Reason for Disposition Nursing judgment or information in reference Answer Assessment - Initial Assessment Questions Spoke with pt's daughter Farida Beck and patient-both were on phone together. 1. Daughter would like to inform Prosper Travis that patient completed his 5 day Lasix regimen that Prosper ordered for last week. Pt is down a total of 5 lbs since OV on 02/03 but legs and ankles remainswollen but a little bit better. SOB with exertion continues, has not worsened. [...] days as ordered Protocols used: No Guideline Leuuiiozh-PGCRO-KS [facility]05-28-2024 Telephone encounter Note* Telephone Encounter - Angelina Bliss RN - 02/12/2024 8:12 AM EDT Message left for pt's daughter Farida Beck, to call provider's office and ask for a nurse to discussMC message received on 01/11/24, regarding patient, as copied: Faisal Alarcon to P Wstr [facility]amp My Chart Rx Pool (supporting M Kelvin Travis PA-C) 02/10/24 2:56 PM Hi Mr. Travis, After the five days of being on lasiks, dad has only lost three pounds. His ankles and feet are still swollen. So still have concern regarding this. Also, his EKG Rhythm Strip is quite concerning to me. Please advise! Angelina Bliss RN [facility]05-20-2024 Instructions* Patient Instructions* Osvaldo Travis PA-C - 02/04/2024 12:49 PM EDT Trial lasix 40mg daily x 5 days Check weight at home prior to starting Recheck weight in 5 days and report to me documented in this encounterTrihealth Bethes[facility]05-20-2024 History of Present illness Narrative* Brenda Arrington, RT(R) - 02/04/2024 12:20 PM EDT Radiology Service Progress Note PATIENT [...] Cane, Wheelchair, Crutches, etc.)? Yes, Patient High Riskfor Falls What interventions were put in place to prevent falls during this visit? Instructed Patient to Callfor Help if Needed, Offered Assistance with Transfers/Clothing, and Increased Observations by Caregivers PATIENT GENDER DATA: Male PATIENT RELEVANT IMPLANT DATA REVIEWED: Yes PATIENT PRESENTS WITH AN IMPLANTABLE OR ATTACHED BUDGET ASSISTANT: No RADIOLOGY DEPARTMENT: General X-ray: Exam(s) Completed: Chest X-Ray PERIPHERAL IV DATA: Not applicable SIGNED BY: RT Griselda(R) February 04, 2024 12:16 PM documented in this encounterTrihealth Bethes[facility]05-20-2024 History of Present illness Narrative* Osvaldo Travis PA-C - 02/04/2024 11:36 AM EDT 78 year old male with hx non-obstructive coronary artery disease, HTN, pAF on anticoag, restrictivelung disease c/o swelling in both legs over last three days SOB if he tries to do anything, nothing new- attributes to beta salvador. Sleeps in bed, one pillow, usually lays on right side No chest/ neck/ shoulder or arm pain Not feeling weak. No recent colds or infections. No lower leg pain or tenderness 500 feet walking with dyspnea- not new. Sees [place] [facility], last visit 10/24/2023: Notes identified paroxysmal [...] 2 Puffs as instructed every 4 hours asneeded. 1 Each 1 famotidine (PEPCID) 20 mg [...] times a day before meals. Getting through [facility] 5 Each 1 dilTIAZem CD (CARDIZEM [...] Units subcutaneouslydaily at bedtime. 15 mL 3 finasteride (PROSCAR) [...] test strips, dx- NIDDM 6 Units 11 flecainide (TAMBOCOR) 150 mg tablet Take 1 tablet by mouth every 12 hours. Prescribed by outside envelope folder 60 tablet 0 No current facility-administered medications [...] 05/18/2023, NSR 1 degree AVB, LAFB pending envelope folder review. ASSESSMENT/PLAN: 1. SOB (shortness of breath) - ICD9: 786.05, ICD10: R06.02 (primary diagnosis) Suspect r/t body habitus and deconditioning, chronic lung disease In no acute distress. No chest pain or evidence of DVT. EKG stable Due to sudden weight gain will trial lasix 40mg daily x 5 days with weight onb 5th day to be reported through [employer]- daughter will see this gets completed If chest pain, worsening SOB, feeling worse:go to ER Will send note to [place] [facility] for continuity of care. - COMPLETE [...] data. Osvaldo Travis PA-C documented in this encounterTrihealth Bethes[facility]05-20-2024 Telephone encounter Note * Telephone Encounter - Osvaldo Regalado RN - 02/04/2024 10:05 AM EDT Daughter reports patient has swelling in karon feet/ankles for 3 days, and never has [...] Assessment - Initial Assessment Questions 1. LOCATION: Karon ankle and pedal edema. L > R. [...] disease. 7. : N/A Protocols used: Ankle Ieiimvcl-QOSKC-IF, Leg Swelling and Irakj-WBEWO-RL [facility]05-20-2024 Miscellaneous Notes* Telephone Encounter - Osvaldo Regalado RN - 02/04/2024 10:05 AM EDT Daughter reports patient has swelling in karon feet/ankles for 3 days, and never has [...] Assessment - Initial Assessment Questions 1. LOCATION: [place] ankle and pedal edema. L > R. [...] disease. 7. : N/A Protocols used: Ankle Vquaypnl-MUVOH-XE, Leg Swelling and Ksrxw-UZDRB-JV documented in this encounterTrihealth Bethes[facility]05-03-2024 Telephone encounter Note * Telephone Encounter - Christian Bob LPN - 01/18/2024 2:52 PM EDT Patient has been identified by [...] Please advise. Thank you. Christian Bob LPN. [facility]05-03-2024 Miscellaneous Notes* Telephone Encounter - Christian Bob LPN - 01/18/2024 2:52 PM EDT Patient has been identified by [...] you. Christian Bob LPN. documented in this encounterTrihealth Bethesda [facility]04-24-2024 Miscellaneous Notes* Telephone Encounter - Renetta Gant MA - 01/09/2024 10:36 AM EDT Patient phones requesting refills as follows: Requested Prescriptions Pending Prescriptions Disp Refills ELIQUIS 5 mg tab(s) 60 tablet 1 Sig: Take 1 tablet by mouth two times a day. Please review and advise. Renetta Gant MA documented in this encounterTrihealth Bethes[facility]04-24-2024 Telephone encounter Note * Telephone Encounter - Renetta Gant MA - 01/09/2024 10:36 AM EDT Patient phones requesting refills as follows: Requested Prescriptions Pending Prescriptions Disp Refills ELIQUIS 5 mg tab(s) 60 tablet 1 Sig: Take 1 tablet by mouth two times a day. Please review and advise. Renetta Gant MA [facility]04-16-2024 Miscellaneous Notes* Telephone Encounter - Mathieu Virgen MD - 01/01/2024 2:13 PM EDT See letter. documented in this encounterTrihealth Bethesda [facility]04-16-2024 Miscellaneous Notes* Telephone Encounter - Mathieu Virgen MD - 01/01/2024 2:12 PM EDT See other note * Telephone Encounter - Osvaldo Regalado RN - 01/01/2024 12:07 PM EDT Daughter, Farida, reports she spoke with [employer], who informed her pcp would need to write a Prior Auth letter stating condition and diagnoses, and specify patient needs a lite weight, andfax it to [employer] at fax # [phone]. [facility] would then decide if they will cover it. Please phone Farida with any questions. documented in this encounterTrihealth Bethesda [facility]04-15-2024 Miscellaneous Notes* Telephone Encounter - Mathieu Virgen MD - 12/31/2023 9:37 AM EDT Printed. * Telephone Encounter - Jaylene Henley LPN - 12/31/2023 8:46 AM EDT See MyChart message needs it to be for this scooter please. documented in this encounterTrihealth [facility]04-09-2024 Miscellaneous Notes* Addendum Note - Mathieu Virgen MD - 12/25/2023 2:15 PM EDTAddended by: MATHIEU VIRGEN on: 12/25/2023 02:15 PM Modules accepted: Orders documented in this encounterTrihealth [facility]04-09-[facility] History of Present illness Narrative* Mathieu Virgen MD - 12/25/2023 2:12 PM EDT Wants scooter. Uses a walker. Does not have a walker. Wants a scooter to use groceries. Daughter says they they will cover it for that. * Mathieu Virgen MD - 12/25/2023 1:49 PM EDT Patient presents with: F/U 6 months HPI: [...] chills. No cough. No dizziness. Latest Ref Rn 11/28/2023 WBC 3.70 - 11.00 k/uL 10.24 [...] Abs Lymph 1.00 - 4.00 k/uL 2.31 Marinette% % 11.1 Abs Marinette <0.87 k/uL 1.14 (H) Eosin% % 3.4 [...] 2 Puffs as instructed every 4 hours asneeded. colestipol (COLESTID) 1 gram tablet Take 1 tablet by mouth once daily. insulin lispro (HUMALOG KWIKPEN INSULIN) 100 unit/mL Inject 22 Units subcutaneously three times daily before meals. Getting through [facility] (Patient taking differently: Inject 26 Units subcutaneously three times a day before meals. Getting through [facility]) insulin glargine (BASAGLAR KWIKPEN U-100 INSULIN) 100 unit/mL (3 mL) Inject 90 Units subcutaneouslydaily at bedtime. finasteride (PROSCAR) 5 mg tablet [...] mouth every 12 hours. Prescribed by outside envelope folder No current facility-administered medications for this visit. [...] history andsocial history today. REVIEW OF SYSTEMS No issues [...] patient. Advised them to call if any sideeffects or questions. - DICLOFENAC 1 % TOPICAL GEL 11. Psoriatic arthritis (HCC) - ICD9: 696.0, ICD10: L40.50 -as above. - DICLOFENAC 1 % TOPICAL GEL - COMP METABOLIC PANEL 12. Type 2 diabetes mellitus without complication, with long-term current use of insulin (HCC) - ICD9: 250.00, V58.67, ICD10: E11.9, Z79.4 - INSULIN LISPRO (U-100) 100 UNIT/ML SUBCUTANEOUS PEN - HGB A1C Mathieu Virgen MD RTO in six months or prn documented in this encounterTrihealth [facility]02-29-2024 Miscellaneous Notes* Telephone Encounter - Julianna Hood APRN.CNS - 11/15/2023 12:49 PM EST Ordered. * Telephone Encounter - Tammy Davies LPN - 11/14/2023 8:43 AM EST Patient daughter Farida calling asking to have order for Albumin Creat urine put in computer for herfather to complete on 11/28/2023 when he comes in to get his lab work done. Pending order to file. Please advise documented in this encounterTrihealth [facility]02-28-2024 Miscellaneous Notes* Telephone Encounter - Tammy Davies LPN - 11/14/2023 4:17 PM EST Phoned patient daughter Farida went over notes below from Prosper KIRKPATRICK and aware rx sent to pharmacy. * Telephone Encounter - Osvaldo Travis PA-C - 11/14/2023 3:46 PM EST It was d/c'd on 09/06/2023 by Bibiana Cheung CNP, not clear why. The following approved medication requests have been transmitted electronically. Requested Prescriptions Signed Prescriptions Disp Refills dilTIAZem CD (CARDIZEM CD, CARTIA XT) 120 mg 24 hr capsule 90 capsule 3 Sig: Take 1 capsule by mouth once daily. Authorizing Provider: Osvaldo TRAVIS PA-C * Telephone Encounter - Julia Chilel LPN - 11/14/2023 3:17 PM EST Pt's daughter Farida Beck calling in regarding Cartia XT 120mg. Med no longer on med list & it looks like med was d/c'd on 09/06/24. Farida states pt is still taking it & wonders if he is suppose to be taking it? If he is, he will need a refill. Pt has 6 tabs left, he will be out of meds before pcp returns to office. Please advise. Pt uses [facility] in [place]. Julia Chilel LPN documented in this encounterTrihealth [facility]02-28-2024 Miscellaneous Notes* Telephone Encounter - Tammy Davies LPN - 11/14/2023 8:39 AM EST Patient daughter Farida calling father has one pill left and [...] you. Tammy Davies LPN. documented in this encounterTrihealth [facility]02-16-2024 Miscellaneous Notes* Telephone Encounter - Jaylene Henley LPN - 11/02/2023 8:21 AM EST Patient has been identified by name and date of : Yes Requested Prescriptions Pending Prescriptions Disp Refills losartan-hydroCHLOROthiazide (HYZAAR) 100-12.5 mg per tablet 90 tablet 1 Sig: Take 1 tablet by mouth once daily. RX INSTRUCTIONS: Patient aware RX will be sent to pharmacy. No need to notify patient. ALFA 06/06/23 Scheduled 12/05/23 Jaylene Henley LPN documented in this encounterTrihealth [facility]01-27-2024 Miscellaneous Notes* Telephone Encounter - Miley Pemberton Ma - 10/13/2023 10:12 AM EST Patient has been identified by name and date of : Yes, Provider Mathieu Virgen MD Date October 13, 2023 Time now Patient phones for refill(s): Requested Prescriptions Pending Prescriptions Disp Refills spironolactone (ALDACTONE) 25 mg tablet 90 tablet 1 Sig: Take 1 tablet by mouth once daily. Date of last office visit in primary care: 09/06/23 Date of next office visit in primary care: 12/05/23 Please advise. Thank you. Miley Pemberton Ma. documented in this encounterTrihealth [facility]01-06-2024 Discharge summary Author Tre Johnson [facility] September 22, 2023 2:48pm Note Date/Time September 22, 2023 10 :58am [facility] [address] [place] [address] Emergency Department Summary 09/22/23 MR#: [id number] Acct: [id number] Name: FAISAL ALARCON Rep #:[id number] : 1945 78 From: Tre Johnson DO PCP: Dr. Mathieu Virgen MD Status:REG E R Location: ED HPI History of Present Illness Chief Complaint: Chest Pain Narrative Narrative: 78-year-old male presenting with chest pain. Patient states chest pain started about 9. He believes his chest pain lasted about 10 minutes. He denies radiation of pain but points to his sternum where the pain is. He cannot describe the pain with anything other than it hurt. Patient denied feeling lightheaded, nauseous, dizziness. He denies that his heart was racing. He denies feeling short of breath. He states that EMS came and evaluated him and his symptoms were gone upon their arrival. He received no medication via EMS. Patient states he has a history of A-fib and is on Eliquis and available/diltiazem. Patient has not missed any medication. Patient denies fever, chills, cough. States he felt otherwise well up until this morning. Last meal was 6 PMyesterday and he states he ate a big Mac and fries. [facility] Medical History Acute respiratory failure with hypoxia Atrial fibrillation with RVR (02/05/21) Back pain BPH (benign prostatic hyperplasia) Dietary restriction Enlarged prostate Essential (primary) hypertension Former smoker High cholesterol Hyperlipidemia Hypertension Injury of back Insulin dependent diabetes mellitus Left lower lobe pneumonia Morbid obesity Nonobstructive atherosclerosis of coronary artery Obesity Pneumonia due to COVID-19 virus Psoriasis Restless legs Restrictive airway disease Right bundle branch 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 Shortness of breath on exertion Type 2 diabetes mellitus Wears glasses Wears hearing aid Home Medications simvastatin 40 mg tablet 40 mg PO QHS cholesterol 04/21/15 [History Last Taken Unknown] apixaban 5 mg tablet (Eliquis) 5 mg PO BID #180 tabs 02/22/21 [Rx Last Taken Unknown] aspirin 81 mg tablet,delayed release 81 mg PO DAILY #90 tabs 02/22/21 [Rx Last Taken 07/22/21] carvedilol 25 mg tablet 25 mg PO BID #180 tabs 02/22/21 [Rx Last Taken Unknown] losartan 100 mg-hydrochlorothiazide 12.5 mg tablet 1 tab PO DAILY 06/23/21 [History Last Taken Unknown] diltiazem HCl 120 mg capsule,extended release 24 hr 120 mg PO DAILY #90 caps 07/18/21 [Rx Last Taken Unknown] insulin lispro 100 unit/mL subcutaneous pen (Humalog KwikPen (U-100) Insulin) 26unit subcut TID diabetes 10/24/21 [History Last Taken Unknown] metformin 500 mg tablet,extended release 24 hr 1,000 mg PO BID 10/24/21 [History Last Taken Unknown] albuterol sulfate 90 mcg/actuation aerosol inhaler 1 inh inhalation Q6H PRN SOB #8.5 grams 11/30/21 [Rx Last Taken Unknown] colestipol 1 gram tablet 1 g PO DAILY 01/30/22 [History Last Taken Unknown] insulin glargine 100 unit/mL (3 mL) subcutaneous pen (Lantus Solostar U-100 Insulin) 90 unit subcut QPM diabetes 01/30/22 [History Last Taken Unknown] spironolactone 25 mg tablet 25 mg PO DAILY #30 tabs 01/30/22 [Rx Last Taken Unknown] finasteride 5 mg tablet 5 mg PO DAILY 10/27/22 [History Last Taken Unknown] NUVOFLEX 2 cap PO DAILY 09/22/23 [History Last Taken Unknown] TUMERIC 1,000 mg PO DAILY 09/22/23 [History Last Taken Unknown] famotidine 20 mg tablet 20 mg PO BID 09/22/23 [History Last Taken Unknown] insulin glargine 100 unit/mL (3 mL) subcutaneous pen (Basaglar KwikPen U-100 Insulin) 90 unit subcut QHS 09/22/23 [History Last Taken Unknown] Allergy/AdvReac Type Severity Reaction Status Date / Time amoxicillin Allergy Rash Verified 03/01/23 20:35 Family History Sister Colon cancer Brother Diabetes Mother Diabetes Heart disease Cancer Father Heart disease Cancer Diabetes Surgical History H/O hemorrhoidectomy H/O wrist surgery History of left heart catheterization (02/07/21) Hx of cholecystectomy Hx of umbilical hernia repair Status post surgical manipulation of ankle joint Social History household members: spouse Smoking Status: Former smoker how long ago did patient quit smokin years ago alcohol intake: never substance use type: does not use caffeine: Yes Type: coffee Number of servings: 1 ROS ROS ED Constitutional Constitutional ED: Denies chills, fever(s) or sweats Eyes Eyes: Denies blurry vision or change in vision ENT ENT ED: Denies ear pain or sore throat Cardiovascular Cardiovascular: Reports chest pain; Denies palpitations or racing heartbeat Respiratory/Chest Respiratory/Chest: Denies cough, dyspnea or sputum Gastrointestinal Gastrointestinal: Denies abdominal pain, constipation, diarrhea, nausea or vomiting Genitourinary Genitourinary ED: Denies dysuria, hematuria or urinary frequency Musculoskeletal Musculoskeletal: Denies arthralgias, myalgias or neck pain Integumentary Denies abscess, Abrasions or rash Neurologic Neurologic: Denies headache(s), paresthesias or weakness Psychiatric Psychiatric: Denies anxiety, depression, suicidal ideation or suicidal thoughts Endocrine Endocrinology: Denies polydipsia or polyuria EXAM Physical Exam Const Vital Signs: 09/22/23 10:13 09/22/23 10:17 09/22/23 10:43 Temperature 96.9 F L Temperature Source Temporal Pulse Rate 88 Respiratory Rate 24 H Respiratory Effort Normal Non-Labored Blood Pressure 157/67 H Blood Pressure Mean 97 Pulse Ox 94 Oxygen Delivery Method Room Air Room Air 09/22/23 12:00 09/22/23 13:00 09/22/23 14:00 Temperature Temperature Source Pulse Rate 78 78 74 Respiratory Rate 12 16 16 Respiratory Effort Blood Pressure 154/91 H 163/87 H 117/57 L Blood Pressure Mean 112 112 77 Pulse Ox 95 93 97 Oxygen Delivery Method Room Air Room Air Room Air Positive well nourished General Appearance ED: NAD; Negative for pallor HEENT Reports moist mucous membranes normocephalic Eyes PERRL and EOMs intact bilaterally Resp normal respiratory effort and clear to auscultation bilaterally Auscultation: Negative for rales, rhonchi or wheezes Cardio regular rate and regular rhythm GI normal to inspection, nondistended, normoactive bowel sounds Neuro oriented x3 and CN's II-XII intact bilaterally Sensorium / Orientation: awake and alert Psych mental status grossly normal Skin no rashes or lesions noted General Skin Exam: Negative for jaundice or pallor Heart Score History: Slightly/Non-Suspicious ECG: Normal Age: >/= 65 years Risk Factors: >/= 3 Risk Factors or History of CAD Score: 4 MDM MDM MDM Narrative Medical decision making narrative: Patient presenting with resolved chest pain. Differential includes A-fib, a flutter, ACS, CHF, pneumonia, costochondritis, dehydration, anemia, or light abnormalities. Patient on Eliquis so low suspicion for PE. Patient's pain is resolved. Vital signs are stable he is afebrile. Patient declines any analgesia. CBC was obtained to assess white blood cell count, hemoglobin, platelets. BMP to assess renal function, electrolytes. High-sensitivity troponin EKG to assess for ischemia/dysrhythmia. Chest x-ray to rule out pneumonia. HEART score 4. Patient had normal stress test in November of last year. CBC shows mild leukocytosis 12.0. Hemoglobin stable 14.1. Platelets are normalat 210. Renal function electrolytes within normal limits. High-sensitivity troponin is 10. Delta troponin 9. There is no significant interval difference. EKG on my interpretation shows a normal sinus rhythm at a ventricular of 86 bpmwith first-degree AV block. Chest x-ray my interpretation is no acute process. Given patient's workup is ultimately negative I feel he safe for discharge home. Return precautions were discussed. Impression: 1. Chest pain Lab Data Attestation: I reviewed the patient's lab results. Labs: Laboratory Results - last 24 hr 09/22/23 09/22/23 10:35 12:43 WBC 12.0 H RBC 5.22 Hgb 14.1 Hct 43.6 MCV 83.5 MCH 27.0 MCHC 32.3 RDW Std Deviation 43.0 RDW Coeff of Lucia 14.2 Plt Count 210 MPV 10.9 Immature Gran % (Auto) 0.400 Neut % (Auto) 71.2 H Lymph % (Auto) 14.7 L Marinette % (Auto) 9.9 Eos % (Auto) 3.4 Baso % (Auto) 0.4 Absolute Neuts (auto) 8.5 H Absolute Lymphs (auto) 1.76 Nucleated RBC % 0 Sodium 137 Potassium 4.0 Chloride 106 Carbon Dioxide 25.0 Anion Gap 6 BUN 18 Creatinine 1.07 Estim Creat Clear Calc 63.26 Est GFR (MDRD) Af Amer 86 Est GFR (MDRD) Non-Af 71 BUN/Creatinine Ratio 16.8 Glucose 168 H Calcium 9.4 Troponin I High Sens 10 9 Radiography Diagnostic Testing: Clinical Impression(s) from Imaging Studies Chest X-Ray 09/22/23 11:11 IMPRESSION: No acute cardiopulmonary process identified. Electronically Signed: Amira Brewster MD at 11:54 EST Reading Location ID and State: [facility] / [place] Tel , Service support , Discharge Plan Triage Chief Complaint: Chest Pain ED Provider: Tre Johnson Dx/Rx/DC Orders Instructions: ED Chest Pain, Uncertain Cause Prescriptions: No Action Eliquis 5 mg tablet 5 mg PO BID Qty: 180 3RF Hold Instructions: Resume on 08/12/21. aspirin 81 mg tablet,delayed release (DR/EC) 81 mg PO DAILY Qty: 90 3RF Hold Instructions: Resume on 08/12/21. carvedilol 25 mg tablet 25 mg PO BID Qty: 180 3RF losartan-hydrochlorothiazide 100-12.5 mg tablet 1 tab PO DAILY metformin 500 mg tablet extended release 24 hr 1,000 mg PO BID spironolactone 25 mg tablet 25 mg PO DAILY Qty: 30 2RF albuterol sulfate 90 mcg/actuation HFA aerosol inhaler 1 inh INHALATION Q6H PRN (Reason: SOB) Qty: 8.5 6RF simvastatin 40 MG tablet 40 mg PO QHS insulin lispro [Humalog KwikPen Insulin] 100 unit/mL insulin pen 26 unit SUBCUT TID colestipol 1 gram tablet 1 g PO DAILY Lantus Solostar U-100 Insulin 100 unit/mL (3 mL) insulin pen 90 unit SUBCUT QPM famotidine 20 mg tablet 20 mg PO BID Patient Comments: take 1 tablet by mouth twice a day TUMERIC 1,000 mg capsule 1,000 mg PO DAILY insulin glargine [Basaglar KwikPen U-100 Insulin] 100 unit/mL (3 mL) insulin pen 90 unit subcut QHS NUVOFLEX 2 cap PO DAILY diltiazem HCl 120 mg capsule,extended release 24hr 120 mg PO DAILY Qty: 90 3RF finasteride 5 mg tablet 5 mg PO DAILY Primary Care Provider: Mathieu Virgen Referrals: Mathieu Virgen MD [Primary Care Provider] - Disposition Disposition: Home, Self Care What to do if you have Problems For any increased pain, shortness of breath, bleeding, nausea or vomiting, chestpain, or any unexpected problems, contact your Primary Care Provider. Call [facility] ([phone]) or report to the closest Emergency Room. Call 911 if necessary. 09/22/23 [id number] <Electronically signed by Tre Johnson DO> Cosigner Signature (if applicable): CC: Dr. Mathieu Virgen MD ~ Signed [facility] Work Phone: 1(107) 199-132012-21-2023 Miscellaneous Notes* Telephone Encounter - Liyah Monroy RN - 09/06/2023 10:18 AM EST Reason for Disposition [1] MILD difficulty breathing [...] prefers to sit, cannot lie down flat, speaksin phrases, mild retractions, audible wheezing, pulse 100-120. - SEVERE: Very SOB at rest, speaks in single words, struggling to breathe, sitting hunched forward,retractions, pulse > 120 Pt denies difficulty breathing, [...] last month. Protocols used: Cough - Acute [id number] documented in this encounterTrihealth [facility]12-11-2023 Miscellaneous Notes* Telephone Encounter - Christian Bob - 08/27/2023 7:18 PM EST Patient phones requesting refills as follows: Requested Prescriptions Pending Prescriptions Disp Refills simvastatin (ZOCOR) 40 mg tablet 90 tablet 3 Sig: Take 1 tablet by mouth daily at bedtime. [facility] 07/23/23 NOV 12/05/23 Please review and advise. Christian Bob documented in this encounterTrihealth [facility]11-21-2023 Miscellaneous Notes* Telephone Encounter - Lulu Walls - 08/07/2023 2:34 PM EST Forms completed and signed and faxed back to [facility] at [phone]. Patient informed. Lulu Walls * Telephone Encounter - Lulu Walls - 08/07/2023 2:14 PM EST Type of form: Patient Assistance. [facility] Form received via walk in When form is completed, Fax form to number on form. Form has been forwarded to Physician Desk: Dr. Virgen. Lulu Walls documented in this encounterTrihealth [facility]11-06-2023 History of Present illness Narrative* Brenda Arrington RT(R) - 07/23/2023 3:00 PM EST Radiology Service Progress Note PATIENT NAME: Faisal [...] Cane, Wheelchair, Crutches, etc.)? Yes, Patient High Riskfor Falls What interventions were put in place to prevent falls during this visit? Instructed Patient to Callfor Help if Needed, Offered Assistance with Transfers/Clothing, and Increased Observations by Caregivers PATIENT GENDER DATA: Male PATIENT RELEVANT IMPLANT DATA REVIEWED: Yes RADIOLOGY DEPARTMENT: General X-ray: Exam(s) Completed: Pelvis X-Ray: Pelvis with Hip Right PERIPHERAL IV DATA: Not applicable SIGNED BY: RT Griselda(R) July 23, 2023 2:55 PM documented in this encounterTrihealth [facility]11-06-2023 History of Present illness Narrative* Pio Nicole MD - 07/23/2023 2:23 PM EST Chief Complaint Patient presents with: Pain: Right [...] mouth every 12 hours. Prescribed by outside envelope folder famotidine (PEPCID) 20 mg tablet Take 1 tablet by mouth two times a day. albuterol HFA (VENTOLIN HFA) 90 mcg/actuation inhaler Inhale 2 Puffs as instructed every 4 hours asneeded. colestipol (COLESTID) 1 gram tablet Take 1 [...] three times daily before meals. [facility] metFORMIN ER (GLUCOPHAGE XR) 500 mg [...] and extension, good range of motion, no muscletenderness, reflexes are 2+ and symmetric, motor and [...] - XR HIP GENERAL 3V PELV/AP/LAT RIGHT Pio Nicole MD documented in this encounterTrihealth [facility]10-27-2023 Miscellaneous Notes* Telephone Encounter - Jaylene Henley LPN - 07/13/2023 4:19 PM EDT Notified that will place in medical records for case picker. Can case picker starting tomorrow 07/14/23. * Telephone Encounter - Mathieu Virgen MD - 07/13/2023 2:10 PM EDT Printed. * Telephone Encounter - Janet King Ma - 07/13/2023 1:49 PM EDT Received notification that patient will be due for re-enrollment for the [facility] patient assistance programs of Humalog and Basaglar starting 09/17/23. Call to daughter and advised her of this. She will start the process and get it to us. She is asking for a handicap placard to be completed for pt. Once done, call her for case picker. Janet King Ma documented in this encounterTrihealth [facility]10-03-2023 Miscellaneous Notes* Telephone Encounter - Jackelin Tinajero RN - 06/19/2023 3:50 PM EDT Patient has been identified by [...] you. Jackelin Tinajero RN documented in this encounterTrihealth [facility]09-23-2023 History of Present illness Narrative* Pio Nicole MD - 06/09/2023 11:01 AM EDT Chief Complaint Patient presents with: Cough: X 3 days Fatigue: Slept most of the day yesterday Wheezing Shortness of Breath HPI Faisal Alarcon is a 78 year old male who presents here today for Above Complaints. Accompanied today by daughter Farida. COVID positive on 05/18. Too late to [...] three times daily before meals. Getting through [facility] metFORMIN ER (GLUCOPHAGE XR) 500 mg [...] mouth every 12 hours. Prescribed by outside envelope folder aspirin 81 mg chewable tablet Take 81 [...] MG CAPSULE - XR CHEST 2V FRONTAL/LAT Pio Nicole MD documented in this encounterTrihealth [facility]09-23-2023 Miscellaneous Notes* Telephone Encounter - Adele Arteaga RN - 06/09/2023 9:45 AM EDT Reason for Call: Cough, runny nose, chest congestion Outcome: Call PCP within [address] Mathieu Sosa's office/[place] . Reason for Disposition Patient [...] last 30 days. Protocols used: Influenza - [id number] documented in this encounterTrihealth [facility]09-21-2023 Miscellaneous Notes* Telephone Encounter - Kennedi Frey LPN - 06/07/2023 1:51 PM EDT Patient has been identified by [...] you. Kennedi Frey LPN documented in this encounterTrihealth [facility]09-20-2023 History of Past illness Narrative* Problem Noted Date Diagnosed Date Resolved Date Acute cholecystitis 06/06/2023 06/06/2023 06/06/20 Acute respiratory failure 06/06/2023 06/06/2023 History of atrial fibrillation 06/06/2023 06/06/2023 06/06/2023 Left lower lobe pneumonia 06/06/2023 06/06/2023 Mild dehydration 04/04/2023 06/06/2023 06/06/2023 Nausea 03/06/2023 06/06/2023 06/06/2023 Abdominal pain 08/18/2022 06/06/2023 06/06/2023 SOB (shortness of breath) 01/31/2021 08 / Abnormal EKG 01/31/2021 05/06/2021 Low HDL (under [...] of this encounter (statuses as of 06/06/2023) [facility] of Past illness Narrative* Problem [...] of this encounter (statuses as of 06/08/2023) [facility] of Past illness Narrative* Problem [...] of this encounter (statuses as of 06/09/2023) [facility] of Past illness Narrative* Problem [...] of this encounter (statuses as of 06/09/2023) [facility] of Past illness Narrative* Problem [...] of this encounter (statuses as of 06/21/2023) [facility] of Past illness Narrative* Problem Noted Date Diagnosed Date Resolved Date Acute cholecystitis 06/06/2023 06/06/2023 06/06/20 Acute respiratory failure 06/06/2023 06/06/2023 History of atrial fibrillation 06/06/2023 06/06/2023 06/06/2023 Left lower lobe pneumonia 06/06/2023 06/06/2023 Mild dehydration 04/04/2023 06/06/2023 06/06/2023 Nausea 03/06/2023 06/06/202306/06/2023 Abdominal pain 08/18/2022 06/06/2023 06/06/2023 SOB (shortness [...] of this encounter (statuses as of 07/13/2023) [facility] of [facility] illness Narrative* Problem [...] of this encounter (statuses as of 07/24/2023) [facility] of [facility] Narrative* Problem [...] of this encounter (statuses as of 08/08/2023) [facility] of [facility] illness Narrative* Problem [...] of this encounter (statuses as of 08/29/2023) [facility] Narrative* Problem [...] of this encounter (statuses as of 09/07/2023) [facility] Narrative* Problem [...] of this encounter (statuses as of 10/14/2023) [facility] Narrative* Problem [...] of this encounter (statuses as of 11/02/2023) [facility] of Past illness Narrative* Problem [...] of this encounter (statuses as of 11/15/2023) [facility] of Past illness Narrative* Problem [...] of this encounter (statuses as of 11/15/2023) [facility] of Past illness Narrative* Problem [...] of this encounter (statuses as of 12/26/2023) [facility] Past illness Narrative* Problem [...] of this encounter (statuses as of 01/01/2024) [facility]09-20-2023 History of Past illness Narrative* Problem [...] of this encounter (statuses as of 01/02/2024) [facility] History of Past illness Narrative* Problem [...] of this encounter (statuses as of 01/02/2024) [facility] History of Present illness Narrative* Mathieu Virgen MD - 06/06/2023 10:25 AM EDT [...] Abs Lymph 1.00 - 4.00 k/uL 1.48 Marinette% % 9.5 Abs Marinette <0.87 k/uL 1.16 (H) Eosin% % 1.7 [...] Ketones, Urine Trace, Negative Negative Negative Specific [place], Ur 1.005 - 1.030 1.022 1.022 Hemoglobin/Blood,Ur [...] three times daily before meals. Getting through [facility] losartan-hydroCHLOROthiazide (HYZAAR) 100-12.5 mg per [...] mouth every 12 hours. Prescribed by outside envelope folder aspirin 81 mg chewable tablet Take 81 [...] 130/64 Pulse 77 Ht 185.4 cm (6' 1) Wt 134.2 kg (295 lb 12.8 oz) [...] I48.0 - stable. Stay on meds. See [facility] in the winter again. 4. [...] pulmonary if any worsening dyspnea or cough. Mathieu Virgen MD documented in this encounterTrihealth [facility]09-18-2023 Miscellaneous Notes* Telephone Encounter - Angelina Bliss RN - 06/04/2023 2:00 PM EDT Daughter Farida returned call and given provider's message below. Angelina Bliss RN * Telephone Encounter - Jaylene Henley LPN - 06/04/2023 11:57 AM EDT Attempted to call and mailbox is full. * Telephone Encounter - Mathieu Virgen MD - 06/04/2023 11:29 AM EDT [...] advise. Kristina Higuera LPN documented in this encounterTrihealth [facility]09-01-2023 Instructions* Patient Instructions* Osvaldo Travis PA-C - 05/18/2023 4:12 PM EDT Please push fluids with water, non-caffeinated and non-alcoholic beverages, 6-8 glasses today. If you feel weak, faint, or have chest pain, call 911 and have the squad take you to ER. Try to stay cool for the next few days and rest. documented in this encounterTrihealth [facility]09-01-2023 History of Present illness Narrative* Osvaldo [...] three times daily before meals. Getting through [facility] Each 1 losartan-hydroCHLOROthiazide (HYZAAR) 100-12.5 [...] mouth every 12 hours. Prescribed by outside envelope folder aspirin 81 mg chewable tablet Take 81 [...] C (97.1 F) Ht 185.4 cm (6' 1) Wt 131 kg (288 lb 12.8 oz) [...] a chair. Negative Romberg. No past-pointing, normal [id number]. Seems stiff which I think is affecting his gait. EKG demonstrates normal sinus rhythm with first-degree AV block with AZ of 222 MS, otherwise metrics are normal. 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 There is no change from prior EKG 03/01/2023 online under [facility]: I was able to download and [...] there. Osvaldo Travis PA-C documented in this encounterTrihealth [facility]08-30-2023 Miscellaneous Notes* Telephone Encounter - Mathieu Virgen MD - 05/16/2023 2:25 PM EDT [...] and advise. Gin Khan documented in this encounterTrihealth Bet[facility]08-25-2023 Miscellaneous Notes* Telephone Encounter - Jaylene Henley LPN - 05/11/2023 3:48 PM EDT Forms completed and faxed. * Telephone Encounter - Jaylene Henley LPN - 05/11/2023 3:08 PM EDT Type of form: Prescription Assistance Form received via walk in When form is completed, Fax form to [phone] Form has been forwarded to Physician Desk: Dr. Param Henley LPN documented in this encounterTrihealth [facility]08-15-2023 History of Present illness Narrative* Osvaldo Travis PA-C - 05/01/2023 3:24 PM EDT Here to review bleeding area from largest skin tag removal yesterday. No areas bleeding on exam. Instructed if bleeding, hold pressure solidly for 5 minutes and recheck. BP 118/70 Pulse 80 Temp 36.6 C (97.9 F) (Left Tympanic) Resp 20 SpO2 96% Osvaldo Travis PA-C documented in this [facility]08-14-2023 Instructions* Patient Instructions* Osvaldo Travis PA-C [...] recheck in three weeks. documented in this encounterTrihealth [facility]08-14-2023 History of Present illness Narrative* Osvaldo [...] three times daily before meals. Getting through [facility] Each 1 ELIQUIS 5 mg [...] mouth every 12 hours. Prescribed by outside envelope folder aspirin 81 mg chewable tablet Take 81 [...] appointment Osvaldo Travis PA-C documented in this encounterTrihealth [facility]07-28-2023 Miscellaneous Notes* Telephone Encounter - Shaye [...] Thank you. MANDI Santos documented in this encounterTrihealth [facility]07-06-2023 Miscellaneous Notes* Telephone Encounter - Denisha Shepard APRN.CNP - 03/22/2023 12:48 PM EDT This encounter was opened in error. documented in this encounterTrihealth [facility]06-19-2023 Instructions* Patient Instructions* Andrew Guallpa APRN.CNP [...] I learn more? National Digestive Diseases Information Clearinghouse Information [place], [place] [address] www.digestive.niddk.nih.gov email: References: National Digestive Diseases Information Clearinghouse. Constipation. digestive.niddk.nih.gov Accessed June 21, 2012. [employer]. Understanding Constipation. www.gastro.org. Accessed June 21, 2012. Copyright 3093-7692 The [facility]. All rights reserved This information is provided by the [facility] and is not intended to replace the medical advice of your doctor or health care provider. Please consult your health care provider for advice about a specific medical condition. For additional health information, please contact the Center for Consumer Health Information at the [facility] or toll-free extension [phone]. If you prefer, you may visit [email or web address] or [email or web address]. This document was last reviewed on: 2012 index #4059 documented in this encounterTrihealth Bethes[facility]06-19-2023 History of Present illness Narrative* Andrew Guallpa APRN.CAESAR - 03/05/2023 3:28 PM EDT Subjective HPI [...] three times daily before meals. Getting through [facility] ELIQUIS 5 mg tab(s) Take 1 [...] mouth every 12 hours. Prescribed by outside envelope folder aspirin 81 mg chewable tablet Take 81 [...] of care. This note was generated using Endosense software. It may contain errors in wording, punctuation, or spelling. Andrew Guallpa APRN.CAESAR documented in this encounterTrihealth [facility]06-16-2023 History of Present illness Narrative* Mathieu Virgen MD - 03/02/2023 4:21 PM EDT Patient presents with: ED Follow-up HPI: Patient presents today for office visit for ER follow up. HOSPITAL/ER FOLLOW UP: Reason for visit: 02/26/23 hypoglycemia (40) 03/01/23 abd pain and nausea Which facility: [facility] Diagnosis: mild dehydration, abd pain Testing [...] three times daily before meals. Getting through [facility] ELIQUIS 5 mg tab(s) Take 1 tablet [...] mouth every 12 hours. Prescribed by outside envelope folder aspirin 81 mg chewable tablet Take 81 [...] 788.20, ICD10: R33.9 - CONSULT TO UROLOGY Mathieu Virgen MD documented in this encounterTrihealth [facility]06-15-[address] Taylor [facility] March 01, 2023 10:43pm Note Date/Time March 01, 2023 8:54 pm [facility] Medical Records Department [address] [place] [address] Emergency Department Summary 03/01/23 MR#: [id number] Acct: [id number] Name: FAISAL ALARCON Rep #:[id number] : 1945 77 From: Kodi Taylor MD PCP: Dr. Mathieu Virgen MD Status:REG E R Location: ED HPI HPI - GI History of Present Illness Chief Complaint: Abd Pain Informant: patient and family Narrative Narrative: Patient presents with a nauseated feeling in his abdomen. Patient denies any pain to me. He states his abdomen does not hurt but he feelslike he might throw up. This started today. He did eat dinner but did not finish it because the nausea. But he has never vomited. His last bowel movement was yesterday and seemed normal. He does not think he has passed gas this afternoon but not 100% sure. He has no back pain. He has history of cholecystectomy but no other abdominal surgery. He denies known history of AAA. He was in the hospital here Sunday for low sugars. But that has been better. He was eating and drinking and doing well between then and now. He is on Eliquis but reports no bleeding that he knows of. No blood in the stool. Nothing specifically makes this better or worse. [facility] Medical History Acute respiratory failure with hypoxia Atrial fibrillation with RVR (02/05/21) Back pain BPH (benign prostatic hyperplasia) Dietary restriction Enlarged prostate Essential (primary) hypertension Former smoker High cholesterol Hyperlipidemia Hypertension Injury of back Insulin dependent diabetes mellitus Left lower lobe pneumonia Morbid obesity Nonobstructive atherosclerosis of coronary artery Obesity Pneumonia due to COVID-19 virus Psoriasis Restless legs Restrictive airway disease Right bundle branch 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 Shortness of breath on exertion Type 2 diabetes mellitus Wears glasses Wears hearing aid Home Medications simvastatin 40 mg tablet 40 mg PO QHS cholesterol 04/21/15 [History Last Taken Unknown] apixaban 5 mg tablet (Eliquis) 5 mg PO BID #180 tabs 02/22/21 [Rx Last Taken Unknown] aspirin 81 mg tablet,delayed release 81 mg PO DAILY #90 tabs 02/22/21 [Rx Last Taken 07/22/21] carvedilol 25 mg tablet 25 mg PO BID #180 tabs 02/22/21 [Rx Last Taken Unknown] losartan 100 mg-hydrochlorothiazide 12.5 mg tablet 1 tab PO DAILY 06/23/21 [History Last Taken Unknown] diltiazem HCl 120 mg capsule,extended release 24 hr 120 mg PO DAILY #90 caps 07/18/21 [Rx Last Taken Unknown] insulin lispro 100 unit/mL subcutaneous pen (Humalog KwikPen (U-100) Insulin) 26unit subcut TID diabetes 10/24/21 [History Last Taken Unknown] metformin 500 mg tablet,extended release 24 hr 1,000 mg PO BID 10/24/21 [History Last Taken Unknown] albuterol sulfate 90 mcg/actuation aerosol inhaler 1 inh inhalation Q6H PRN SOB #8.5 grams 11/30/21 [Rx Last Taken Unknown] colestipol 1 gram tablet 1 g PO DAILY 01/30/22 [History Last Taken Unknown] insulin glargine 100 unit/mL (3 mL) subcutaneous pen (Lantus Solostar U-100 Insulin) 90 unit subcut QPM diabetes 01/30/22 [History Last Taken Unknown] spironolactone 25 mg tablet 25 mg PO DAILY #30 tabs 01/30/22 [Rx Last Taken Unknown] finasteride 5 mg tablet 5 mg PO DAILY 10/27/22 [History Last Taken Unknown] flecainide 150 mg tablet 150 mg PO Q12H #60 tabs 12/06/22 [Rx Last Taken Unknown] ondansetron 4 mg disintegrating tablet 4 mg PO Q8H PRN PRN Nausea #10 tabs 03/01/23 [Rx Last Taken Unknown] Allergy/AdvReac Type Severity Reaction Status Date / Time amoxicillin Allergy Rash Verified 03/01/23 20:35 Family History Sister Colon cancer Brother Diabetes Mother Diabetes Heart disease Cancer Father Heart disease Cancer Diabetes Surgical History H/O hemorrhoidectomy H/O wrist surgery History of left heart catheterization (02/07/21) Hx of cholecystectomy Hx of umbilical hernia repair Status post surgical manipulation of ankle joint Social History household members: spouse Smoking Status: Former smoker how long ago did patient quit smokin years ago alcohol intake: never substance use type: does not use caffeine: Yes Type: coffee Number of servings: 1 ROS ROS ED ROS Narrative A complete review of systems was performed and is negative except as documented in the history of present illness. Some specific details below. Constitutional: No recent fevers or chills. EYE: No visual complaints or pain. ENT: No difficulty swallowing. No swelling. No pain. No GERD. CV: No chest pain or palpitations. Respiratory: No dyspnea. No hemoptysis. No difficulty taking breaths. He has chronic dyspnea but is no different than normal. GI: Please see history of present illness. : No frequency dysuria or hematuria. Musculoskeletal: No recent trauma. No pains. No pain in his back. Skin: No rash. Nondiaphoretic. Neuro: No weakness or numbness. No paresthesias in his extremities. Endocrine: No polyuria or polydipsia. EXAM Physical Exam Narrative Exam Narrative: CONSTITUTIONAL: Patient is nontoxic in appearance. The patient looks comfortable. HEENT: No notable trauma. Mucous membranes minimally dry. No sinus tenderness. No indication of pain with swallowing. EYES: No conjunctival injection. No icterus. CARDIOVASCULAR: Regular rate. He has a history of atrial fibrillation but at this time it sounds like he has a regular rhythm. An EKG will also be done. Nonotable murmur. No JVD. RESPIRATORY: No respiratory distress. Breathing is unlabored. No wheezes. No rhonchi. No rales. No pain with a deep breath. GASTROINTESTINAL: Obesity limits exam but he and family member states that his abdomen does not look distended. Bowel sounds are hard to hear but do sound somewhat normal.. No tenderness in any area.. No guarding. No rebound. No palpable mass. No bruit. I do not feel any inguinal, umbilical or other hernia. GENITOURINARY: No tenderness over the bladder. No CVA tenderness. No erythema or tenderness or swelling. MUSCULOSKELETAL: Atraumatic. Trace equal peripheral edema. No cord. No tenderness along the deep venous system. No asymmetry. No mottling or indication of poor blood flow. NEUROLOGICAL: Patient is alert and appropriate. No focal deficit noted. SKIN: No noted rashes. No diaphoresis. PSYCHIATRIC: Patient is calm. Mood is appropriate. Const Vital Signs: 03/01/23 20:28 Temperature 97.8 F Temperature Source Temporal Pulse Rate 85 Respiratory Rate 18 Blood Pressure 152/51 H Blood Pressure Mean 84 Pulse Ox 94 Oxygen Delivery Method Room Air MDM MDM MDM Narrative Medical decision making narrative: Patient CBC shows a minimal nonspecific elevation in the white count. Hemoglobin is normal at 14. Platelets are normal. Patient's electrolytes are relatively normal other than he does have a slight bump of his BUN and creatinine. He was given a little bit of IV fluids here. Glucose is well controlled at 132. LFTs show no marked abnormalities. Lipase is 82 but this is down lower than a was on Sunday. Patient's urinalysis shows no sign of infection My independent interpretation of the CT of the abdomen really shows no acute process. No sign of obstruction or ileus or diverticulitis. Final reading doesshow some thickening of the bladder. But his urine is clean and he is not having dysuria so I do not think this represents an acute UTI. This can be followed as an outpatient. I checked with the patient again. He states his nausea essentially gone and he wants to go home. His was concerned why his sugars have been high and low and his blood pressures been high and low at home. I am not exactly sure the cause of this. Everything has been stable here. It is even possible that they are having problems with the machine at home which I think should be checked. We did discuss reasons to return. I will write for some Zofran to go. Lab Data Attestation: I reviewed the patient's lab results. Labs: Laboratory Results - last 24 hr 03/01/23 03/01/23 03/01/23 20:37 21:00 21:00 WBC 11.4 H RBC 4.89 Hgb 14.0 Hct 42.1 MCV 86.1 MCH 28.6 MCHC 33.3 RDW Std Deviation 41.3 RDW Coeff of Lucia 13.2 Plt Count 266 MPV 10.9 Immature Gran % (Auto) 0.300 Neut % (Auto) 62.9 Lymph % (Auto) 21.9 [place] % (Auto) 11.2 H Eos % (Auto) 3.2 Baso % (Auto) 0.5 Absolute Neuts (auto) 7.2 Absolute Lymphs (auto) 2.50 Nucleated RBC % 0 Sodium 133 L Potassium 3.8 Chloride 101 Carbon Dioxide 24.0 Anion Gap 8 BUN 35 H Creatinine 1.41 H Estim Creat Clear Calc 48.80 Est GFR (MDRD) Af Amer 62 Est GFR (MDRD) Non-Af 52 L BUN/Creatinine Ratio 24.8 H Glucose 132 H Calcium 9.1 Total Bilirubin 0.30 AST 16 ALT 33 Alkaline Phosphatase 73 Troponin I High Sens 7 Total Protein 7.1 Albumin 3.5 Globulin 3.6 Albumin/Globulin Ratio 1.0 Lipase 82 H Urine Color Yellow Urine Clarity Clear Urine pH 5.0 Ur Specific [place] 1.025 Urine Protein 15 H Urine Glucose (UA) 250 H Urine Ketones 5 H Urine Occult Blood 50 H Urine Nitrite Negative Urine Bilirubin Negative Urine Urobilinogen Normal Ur Leukocyte Esterase Negative Urine RBC 0-5 SEEN Urine WBC 0-5 SEEN Ur Squamous Epith Cells 0-5 SEEN Urine Bacteria 0 SEEN Hyaline Casts 0-5 SEEN Urine Mucus 0 SEEN Radiography Diagnostic Testing: Clinical Impression(s) from Imaging Studies Abdomen/Pelvis CT 03/01/23 21:38 IMPRESSION: Circumferential urinary bladder wall thickening suspicious for acute cystitis. Electronically Signed: Robert Almeida MD at 22:00 EDT , EKG Initial EKG: Comments: My independent interpretation the patient's EKG done for generalized weakness nausea in an elderly male shows normal sinus rhythm with a rate of 76. He does have a right bundle branch block. Mild nonspecific ST and T wave changes related to his bundle branch blocks but no sign of acute ST elevation or depression. AZ interval is normal. QRS duration and QTc are bit long. Discharge Plan Triage Chief Complaint: Abd Pain ED Provider: Kodi Taylor Dx/Rx/DC Orders Clinical Impression: Nausea, Mild dehydration, Creatinine elevation Instructions: ED Dehydration (Adult) Prescriptions: New ondansetron [ondansetron] 4 mg tablet,disintegrating 4 mg PO Q8H PRN PRN (Reason: Nausea) Qty: 10 0RF No Action Eliquis 5 mg tablet 5 mg PO BID Qty: 180 3RF Hold Instructions: Resume on 08/12/21. aspirin 81 mg tablet,delayed release (DR/EC) 81 mg PO DAILY Qty: 90 3RF Hold Instructions: Resume on 08/12/21. carvedilol 25 mg tablet 25 mg PO BID Qty: 180 3RF losartan-hydrochlorothiazide 100-12.5 mg tablet 1 tab PO DAILY metformin 500 mg tablet extended release 24 hr 1,000 mg PO BID spironolactone 25 mg tablet 25 mg PO DAILY Qty: 30 2RF albuterol sulfate 90 mcg/actuation HFA aerosol inhaler 1 inh INHALATION Q6H PRN (Reason: SOB) Qty: 8.5 6RF simvastatin 40 MG tablet 40 mg PO QHS insulin lispro [Humalog KwikPen Insulin] 100 unit/mL insulin pen 26 unit SUBCUT TID colestipol 1 gram tablet 1 g PO DAILY Lantus Solostar U-100 Insulin 100 unit/mL (3 mL) insulin pen 90 unit SUBCUT QPM diltiazem HCl 120 mg capsule,extended release 24hr 120 mg PO DAILY Qty: 90 3RF finasteride 5 mg tablet 5 mg PO DAILY flecainide 150 mg tablet 150 mg PO Q12H Qty: 60 11RF Primary Care Provider: Mathieu Virgen Referrals: Mathieu Virgen MD [Primary Care Provider] - 3-5 Days Disposition Disposition: Home, Self Care What to do if you have Problems For any increased pain, shortness of breath, bleeding, nausea or vomiting, chestpain, or any unexpected problems, contact your Primary Care Provider. Call [facility] ([phone]) or report to the closest Emergency Room. Call 911 if necessary. 03/01/232242 <Electronically signed by Kodi Taylor MD> Cosigner Signature (if applicable): CC: Dr. Mathieu Virgen MD ~ Signed [facility] Work Phone: 1(264) 393-315306-08-2023 Miscellaneous Notes* Telephone Encounter - Tammy Davies DENISE - 02/22/2023 9:26 AM EDT Patient daughter Farida raymond father can not get Diltiazem rx refilled the rx had been cancelled at the pharmacy. He has none left to take for his dose this morning. Computer shows rx had been cancelled, and Cartia XT showing on medication list. Daughter questioning he is to continue taking daily?If so will need new rx to [facility] pharmacy. Please advise documented in this encounterTrihealth [facility]06-02-2023 Miscellaneous Notes* Telephone Encounter - Janet [...] repeated in 10-14 days. documented in this encounterTrihealth [facility]06-02-2023 Instructions* Patient Instructions* Denisha Shepard APRN.CNP - 02/16/2023 3:08 PM EDT Lurdes wrap. Rest Ice Prop the foot. Tylenol as needed. documented in this encounterTrihealth [facility]06-02-2023 History of Present illness Narrative* Denisha [...] through the motion of standing. Currently is aching. Never goes away. Hasn't taken anything for [...] three times daily before meals. Getting through [facility] ELIQUIS 5 mg tab(s) Take 1 [...] mouth every 12 hours. Prescribed by outside envelope folder aspirin 81 mg chewable tablet Take 81 [...] as needed for worsening/no improvement. Denisha Shepard APRN.RN ORTHOPAEDIC The patient indicates understanding of these issues and agrees with the plan. documented in this encounterTrihealth Bet[facility]05-31-2023 Nurse Note* Michelle Jara RN - [...] well. Michelle Jara RN documented in this encounterTrihealth [facility]hes[facility]05-05-2023 History of Present illness Narrative* Mathieu Virgen MD - 01/19/2023 2:24 PM EDT [...] three times daily before meals. Getting through [facility] ELIQUIS 5 mg tab(s) Take 1 tablet [...] mouth every 12 hours. Prescribed by outside envelope folder aspirin 81 mg chewable tablet Take 81 [...] have removed. - CONSULT TO GENERAL SURGERY Mathieu Virgen MD documented in this encounterTrihealth Bethes[facility]03-15-2023 History of Present illness Narrative* Mathieu Virgen MD - 11/29/2022 9:33 AM EDT Patient presents with: Transition Of Care HPI: Patient presents today for office visit for hospital follow up. Seen in [facility] on 11/21/22. Discharged 11/21/22 Chest pain. [...] note: TRANSITION CARE MANAGEMENT (TCM) INITIAL CONTACT [facility] Provider Action/FYI: -pt admitted to [facility] on 11/21/22 for 24hr observation d/t [...] Abs Lymph 1.00 - 4.00 k/uL 1.95 [place]% % 9.8 Abs [place] <0.87 k/uL 1.09 (H) Eosin% % 4.1 [...] mouth every 12 hours. Prescribed by outside envelope folder aspirin 81 mg chewable tablet Take 81 [...] 136/68 Pulse 85 Ht 185.4 cm (6' 1) Wt (!) 137.9 kg (304 lb) SpO2 [...] - ICD9: 272.0, ICD10: E78.00 - stable. Mathieu Virgen MD documented in this encounterTrihealth Bethes[facility]03-13-2023 Miscellaneous Notes* Telephone Encounter - Sheila Murcia LPN - 11/27/2022 9:43 AM EDT PATIENT NOTIFIED OF SAME. * Telephone Encounter - Mathieu Virgen MD - 11/27/2022 8:11 AM EDT Placed. * Telephone Encounter - Kennedi Frey LPN - 11/27/2022 8:06 AM EDT Daughter called back and requesting Hgb A1C and anything else you feel needed. Pt wants to come in as soon as you get the lab in. Pt is fasting now. Please call as soon as the lab orders are in. PH> [phone]. Kennedi Frey LPN * Telephone Encounter - Tammy Davies LPN - 11/27/2022 8:05 AM EDT Patient calling has appt scheduled with PCP for 11/29/2022 and is fasting this morning asking if anylab work is needed? Last labs were done 05/2022, pending orders if wanted, needs diagnosis. Please advise * Telephone Encounter - Michaelle Blaire - 11/25/2022 8:19 AM EST Pt came in for labs 11/25. No labs in active request to be done. Please advise and call patient if there are labs that need done. Thank you, Michaelle PSS documented in this encounterTrihealth Bethes[facility]03-08-2023 History of Present illness Narrative* Christian Bob LPN - 11/22/2022 9:23 AM EST TRANSITION CARE MANAGEMENT (TCM) INITIAL CONTACT [facility] Provider Action/FYI: -pt admitted to [facility] on 11/21/22 for 24hr observation d/t [...] flowsheet data found. SUMMARY: -Pt discharged from [facility] on 11/21/22. -Admitted for: Chest Pain Do you have a hospital follow up appointment with your PCP? Appointment on 11/[address] Virgen. Yes. Remind patient of appointment date, time, and location. If not within 14 calendar days of discharge - please reschedule accordingly. Medical records from recent hospitalization: Epic Placed in provider mailbox for further review. documented in this encounterTrihealth Bet[facility]03-07-2023 History and physical note Author Dr. Stevenson [facility] November 21, 2022 7:08am Note Date/Time November 21, 2022 6:46 am [facility] Medical Records Department [address] [place] [address] History & Physical Exam 11/21/22 0644 MR#: [id number] Acct: [id number] Name: FAISAL ALARCON Rep #:[id number] : 1945 77 From: Mariza Stevenson MD PCP: Dr. Mathieu Virgen MD Status:ADM I NO Location: [place] [address] HPI - General General Date of Admission: 11/21/22 Date of Service: 11/21/22 Chief Complaint: Chest pain. HPI Narrative The patient is a 77 y/o M w/ PMHx: PAF, BPH, HTN, HLD, IDDM, Nonobstructive CAD,Morbid obesity, Former tobacco use who presents to the [facility] ED on 11/21/22 initially earlier in the morning with dyspnea, worse with exertion which is chronic for him however he had onset of chest discomfort in the mid left chest region with no nausea, emesis or diaphoresis with but this subsided and his initial first ED evaluation was unremarkable with discharge to home with plan follow-up outpatient with agreement per Dr. Ponce who Dr. Taylor discussed the case was unfortunately upon returning home the patient had onset of recurrent chest discomfort upon awakening at 5 AM again in the left mid chest but denied specifically any severe dyspnea with this again nor any nausea, emesis or diaphoresis but mild lightheadedness somewhat improved upon ED arrivalbut still continued with EKG. patient noted his chest discomfort was approximately 3-4 out of 10 in severity initially but now is down to a 1 out of 10. Hedescribes it more as an aching discomfort. Work-up in the ED included T98.2, heart rate 82, BP 160/78, respiratory rate 26, 94% on room air upon evaluation earlier in the morning, pending repeat troponin upon current presentation 6:30 AM, earlier in the morning labs included CBC with WC 12.1 coming 114.7, [id number] with left shift, BMP with sodium 134, BUN/creatinine 25/1.22, glucose 153, troponin 8, chest x- ray with stable mild chronic changes with no acute cardiopulmonary findings, previous EKG was sinus rhythm with first-degree AV block with right bundle branch block with no acute evidence of ischemia similar to prior EKGs and repeat this a.m. upon review presentation similar. In the ED patient administered NG. [facility] Medical History Acute respiratory failure with hypoxia Atrial fibrillation with RVR (02/05/21) Back pain BPH (benign prostatic hyperplasia) Dietary restriction Enlarged prostate Essential (primary) hypertension Former smoker High cholesterol Hyperlipidemia Hypertension Injury of back Insulin dependent diabetes mellitus Left lower lobe pneumonia Morbid obesity Nonobstructive atherosclerosis of coronary artery Obesity Pneumonia due to COVID-19 virus Psoriasis Restless legs Restrictive airway disease Right bundle branch 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 Shortness of breath on exertion Type 2 diabetes mellitus Wears glasses Wears hearing aid Home Medications simvastatin 40 mg tablet 40 mg PO QHS cholesterol 04/21/15 [History Last Taken Unknown] apixaban 5 mg tablet (Eliquis) 5 mg PO BID #180 tabs 02/22/21 [Rx Last Taken Unknown] aspirin 81 mg tablet,delayed release 81 mg PO DAILY #90 tabs 02/22/21 [Rx Last Taken 07/22/21] carvedilol 25 mg tablet 25 mg PO BID #180 tabs 02/22/21 [Rx Last Taken Unknown] losartan 100 mg-hydrochlorothiazide 12.5 mg tablet 1 tab PO DAILY 06/23/21 [History Last Taken Unknown] diltiazem HCl 120 mg capsule,extended release 24 hr 120 mg PO DAILY #90 caps 07/18/21 [Rx Last Taken Unknown] insulin lispro 100 unit/mL subcutaneous pen (Humalog KwikPen (U-100) Insulin) 26unit subcut TID diabetes 10/24/21 [History Last Taken Unknown] metformin 500 mg tablet,extended release 24 hr 1,000 mg PO BID 10/24/21 [History Last Taken Unknown] albuterol sulfate 90 mcg/actuation aerosol inhaler 1 inh inhalation Q6H PRN SOB #8.5 grams 11/30/21 [Rx Last Taken Unknown] colestipol 1 gram tablet 1 g PO DAILY 01/30/22 [History Last Taken Unknown] insulin glargine 100 unit/mL (3 mL) subcutaneous pen (Lantus Solostar U-100 Insulin) 90 unit subcut QPM diabetes 01/30/22 [History Last Taken Unknown] spironolactone 25 mg tablet 25 mg PO DAILY #30 tabs 01/30/22 [Rx Last Taken Unknown] flecainide 150 mg tablet 150 mg PO Q12H #60 tabs 05/08/22 [Rx Last Taken Unknown] finasteride 5 mg tablet 5 mg PO DAILY 10/27/22 [History Last Taken Unknown] Allergy/AdvReac Type Severity Reaction Status Date / Time amoxicillin Allergy Rash Verified 11/21/22 06:16 Family History Sister Colon cancer Brother Diabetes Mother Diabetes Heart disease Cancer Father Heart disease Cancer Diabetes Surgical History H/O hemorrhoidectomy H/O wrist surgery History of left heart catheterization (02/07/21) Hx of cholecystectomy Hx of umbilical hernia repair Status post surgical manipulation of ankle joint Social History household members: spouse Smoking Status: Former smoker how long ago did patient quit smokin years ago alcohol intake: never substance use type: does not use caffeine: Yes Type: coffee Number of servings: 1 ROS ROS Narrative Admission Review of Systems: CONSTITUTIONAL: No weight loss, fever, chills, +weakness or fatigue. HEENT: Eyes: No visual loss, blurred vision, double vision or yellow sclerae. Ears, Nose, Throat: No hearing loss, sneezing, congestion, runny nose or sore throat. SKIN: No rash or itching, lesions, wounds. CARDIOVASCULAR: + Chest pain, lightheadedness. No palpitations, edema, orthopnea, syncopal events. RESPIRATORY: + shortness of breath. No cough or sputum, wheezing, hemoptysis. GASTROINTESTINAL: No anorexia, nausea, vomiting or diarrhea, abdominal pain, melena, BRBPR. GENITOURINARY: + Chronic frequency with BPH, unchanged. No dysuria, urgency or retention. NEUROLOGICAL: + lightheadedness. No headache, syncope, paralysis, ataxia, numbness or tingling in the extremities, focal weakness, change in bowel or bladder control, seizure. MUSCULOSKELETAL: + muscle, back pain, joint pain or stiffness. HEMATOLOGIC: + Easy bleeding or bruising. LYMPHATICS: No enlarged nodes. No history of splenectomy. PSYCHIATRIC: No history of depression or anxiety. ENDOCRINOLOGIC: No reports of sweating, cold or heat intolerance. No polyuria orpolydipsia. ALLERGIES: No history of asthma, hives, eczema or rhinitis. Vital Signs Vital Signs Vital Signs: 11/21/22 06:11 Temperature 98.2 F Temperature Source Temporal Pulse Rate 82 Respiratory Rate 26 H Blood Pressure 168/78 H Blood Pressure Mean 108 Pulse Ox 94 Oxygen Delivery Method Room Air Weight Weight: 306 lb 14.135 oz Body Mass Index (BMI) 40.4 Physical Exam Narrative Physical Examination: General: Awake, alert, oriented x 3, extremely hard of hearing, cooperative, seated upright in the ED bed, fatigued but notes chest discomfort improved, currently 1 out of 10. Skin: Normal color, normal turgor, no icterus, no cyanosis. HEENT: AT/NC, EOMI, PERRLA, MMM, no carotid bruits or JVD noted; however, thickened neck makes evaluation difficult. Lungs: Mildly diminished, greater bases, appropriate effort, no rales, ronchi orwheezing. Heart: Regular rate and rhythm; no gallop, rub audible. Abdomen: Soft, morbidly obese, NTTP, difficult to assess distention given habitus, mildly hyperactive bowel sounds, unable to discern HSM secondary to habitus. Extremities: No cyanosis, clubbing, or any marked edema. Neurological: Patient awake, alert, oriented as noted, cognitive function intact; pupils equally reactive to light and accommodation, cranial nerves II-XII grossly normal, moving all 4 extremities, no focal deficits, strength mildlyto moderately globally decreased secondary to acute complaints. Psychiatric: Affect appears mildly fatigued otherwise normal, no acute evidence of depressive or anxiety feelings. Assessment & Plan Assessment/Plan (1) Chest pain: PLAN: Plan The patient is a 77 y/o M w/ PMHx: PAF, BPH, HTN, HLD, IDDM, Nonobstructive CAD,Morbid obesity, Former tobacco use who presents to the [facility] ED on 11/21/22 initially earlier in the morning with dyspnea, worse with exertion which is chronic for him however he had onset of chest discomfort in the mid left chest region with no nausea, emesis or diaphoresis with mild lightheadedness but this subsided and his initial first ED evaluation was unremarkable with discharge to home with plan follow-up outpatient with agreement per Dr. Ponce who Dr. Taylor discussed the case was unfortunately upon returning home the patient had onset of recurrent chest discomfort upon awakening at 5 AM again in the leftmid chest but denied specifically any severe dyspnea with this again nor any nausea, emesis or diaphoresis but mild lightheadedness somewhat improved upon EDarrival but still continued with EKG. #1. Chest Pain: EKG in ED initial and repeat upon representation with sinus rhythm with right bundle branch block with first-degree AV with no acute evidence of ischemia, CXR w/ chronic changes with no acute cardiopulmonary findings, initial troponin 8 upon prior presentation with repeat pending upon representation early this a.m. Will admit to PCU, place on a monitored bed to assure no acute myocardial infarction with serial cardiac enzymes and EKGs. If repeat serial cardiac enzymes and EKGs remain unremarkable will pursue a.m. cardiac stress testing. FLP in AM. Magnesium level requested. ASA, NG, morphine. #2. Nonobstructive CAD: Patient with prior cardiac catheterization with nonobstructive CAD, will continue aspirin, Eliquis, Coreg, losartan, statin Homeregimen. #3. Diabetes mellitus type II: Hold oral home regimen, continue home insulin regimen, n.p.o. status given planned stress testing as noted, accu checks w/ ISS. #4. PAF: We will continue patient home Eliquis, flecainide and diltiazem and Coreg regimen. #5. Hypertension: Continue home regimen including Coreg, losartan, hydrochlorothiazide, spironolactone, diltiazem, PRN hydralazine. #6. Hyperlipidemia: We will continue patient on statin therapy, FLP in AM. #7. Morbid Obesity: Weight loss and lifestyle changes encouraged, nutrition consulted. #8. BPH: We will continue patient home finasteride regimen. #9. Former tobacco use: Encourage continued tobacco cessation. #10. DVT prophylaxis: SCDs, will continue patient on Eliquis regimen. #11. CODE status: Patient CORINE is his daughter who is present and living will is currently in place. Discussed CODE status at length including difference between FULL code, DNR-CCA and DNR-CC status. Following discussions about the differences in these status, requested Full Code status. Advanced Care Planning Face to Face Time: 16 minutes. Admission Evaluation Time spent evaluating chart, patient history, patient evaluation, care planning and discussion with specialists: 55 minutes. Charges/Coding Visit Charges Inpatient E&M: 56165 Init Hosp L2 Procedures Hospitalists Procedures: 91002 Advncd Care Plan 30 Min 11/21/22 0708 <Electronically signed by Mariza Stevenson MD> Cosigner Signature (if applicable): CC: Dr. Mariza Stevenson MD; Dr. Mathieu Virgen MD~ Signed [facility] Work Phone: [phone]) 501-651402-25-2023 Miscellaneous Notes* Telephone Encounter - Chrsitian Bob LPN - 11/11/2022 10:44 AM EST Patient phones requesting refills as follows: Requested Prescriptions Pending Prescriptions Disp Refills losartan-hydroCHLOROthiazide (HYZAAR) 100-12.5 mg per tablet 90 tablet 1 Sig: Take 1 tablet by mouth once daily. Please review and advise. Christian Bob LPN documented in this [facility]02-24-2023 Miscellaneous Notes* Telephone Encounter - Gin Longoria Pss - 11/10/2022 11:30 AM EST Pharmacy verified in Epic Patient has been identified by name and date of : Yes Patient aware RX will be sent to pharmacy. No need to notify patient. Farida phones for refill(s): Requested Prescriptions Pending Prescriptions [...] advise. Gin Longoria Pss documented in this encounterTri[facility]02-09-2023 Miscellaneous Notes* Telephone Encounter - Kaitlyn Hernández RP - 10/26/2022 3:29 PM EST Patient daughter, Farida, called and LMOM wanting to know what [...] refill. Daughter expressed understanding. Kaitlyn Hernández PharmD, [facility] Primary Care Clinical Pharmacist documented in this encounterTrihealth [facility]01-30-2023 Miscellaneous Notes* Addendum Note - Kaitlyn Hernández RPh - 10/16/2022 12:50 PM ESTAddended by: KAITLYN HERNÁNDEZ on: 10/16/2022 12:50 PM Modules accepted: Orders * Telephone Encounter - Kaitlyn Hernández RPh - 10/16/2022 12:46 PM EST Daughter returned call, [facility] insurance needs a PA for Basaglar (PharmD reviewed formulary online and Basaglar is not a preferred insulin - Lantus, Toujeo, and Tresiba are). Patient used to be on Lantus. Discussed with daughter - will order Lantus to see what copay is. If affordable, she will case picker supply. If not affordable, she will let me know and we will order Toujeo. The following approved medication requests have been transmitted electronically. Requested Prescriptions Signed Prescriptions Disp Refills insulin glargine (LANTUS SOLOSTAR U-100 INSULIN) 100 unit/mL (3 mL) 9 Each 5 Sig: Inject 90 Units subcutaneously daily at bedtime. Authorizing Provider: MATHIEU VIRGEN Ordering User: KAITLYN HERNÁNDEZ Will await daughter's call. Kaitlyn Hernández PharmD, [facility] Primary Care Clinical Pharmacist * Telephone Encounter - Kaitlyn Hernández RPh - 10/16/2022 12:24 PM EST Patient's daughter, Farida, called PharmD and LMOM stating patient will be running out of insulin tomorrow, needs another free trial card. Patient has application in for [employer] PAP. She called [employer] this AM, states they still have not processed application and it can take up to 30 days. States patient is going to be out of insulin tomorrow. She reports that she did not provide the pharmacy with the coupon card but the copayearlier this month was $0. Uncertain if pharmacy used their own coupon or if patient's insurance covered the cost of insulin. PharmD advised daughter to contact [email or web address] Morales and ask them to process the Basaglar [...] be ordered in the interim as a replace ment). Daughter agreed to keep me informed. Kaitlyn Hernández PharmD, [facility] Primary Care Clinical Pharmacist documented in this encounterTrihealth [facility]01-18-2023 Miscellaneous Notes* Telephone Encounter - Christian Bob LPN - 10/04/2022 9:32 AM EST Patient phones requesting refills as follows: Requested Prescriptions Pending Prescriptions Disp Refills metFORMIN ER (GLUCOPHAGE XR) 500 mg 24 hr tablet 360 tablet 3 Sig: Take 2 tablets by mouth twice daily before meals. ALFA 05/31/22 NOV 11/29/22 Please review and advise. Christian Bob LPN documented in this encounterTrihealth [facility]01-18-2023 Miscellaneous Notes* Telephone Encounter - Christian Bob LPN - 10/04/2022 9:31 AM EST Patient phones requesting refills as follows: Requested Prescriptions Pending Prescriptions Disp Refills carvedilol (COREG) 25 mg tablet 180 tablet 1 Sig: Take 1 tablet by mouth twice daily. ALFA 05/31/22 NOV 11/29/22 Please review and advise. Christian Bob LPN documented in this encounterTrihealth [facility]01-13-2023 Miscellaneous Notes* Telephone Encounter - Kaitlyn Hernández RPh - 09/29/2022 9:18 AM EST Patient's daughter, Farida, called PharmD and LMOM stating the [employer] application for insulins was submitted this week [...] spoke with patient's daughter. Sent her a [employer] message with a Basaglar Free Trial Offer. [...] Units subcutaneously daily at bedtime. Authorizing Provider: MATHIEU VIRGEN Ordering User: KAITLYN HERNÁNDEZ RPh documented in this encounterTrihealth [facility]01-10-2023 Miscellaneous Notes* Telephone Encounter - Janet King Ma - 09/26/2022 9:51 AM EST Talked to daughter and advised of time and fax number. Janet King Ma * Telephone Encounter - Jaylene Henley LPN - 09/25/2022 8:01 PM EST Sent from [phone] at 8:00pm. (If no error report in the morning can let patient daughter know they were sent.) * Telephone Encounter - Mathieu Virgen MD - 09/25/2022 5:53 PM EST done * Telephone Encounter - Janet King Ma - 09/25/2022 4:52 PM EST Daughter drops off forms. Needs forms to be filled out VASILE. Pt has a week's worth of insulin left. Need to document the time and fax number that the forms were faxed and give to daughter so she can have [facility] shipped for this week. * Telephone Encounter - Janet King Ma - 09/25/2022 1:08 PM EST Unable to locate forms. Advised daughter. She will reprint forms and fill them out and drop them off today. Janet King Ma * Telephone Encounter - Reanna Brannon RN - 09/25/2022 10:09 AM EST Patient's daughter Farida states that a month or so ago she had dropped of medications assistance forms for insulins through [employer]. Asking if these were received and fill out? Please fax this [phone]. Please contact Farida back either way. If provider does not have form Farida can come by and drop of other form. Please review and advise, Reanna Brannon, RN documented in this encounterTrihealth [facility]12-05-2022 Miscellaneous Notes* Telephone Encounter - Alejandrina [...] pharmacy. No need to notify patient. Alejandrina Cholo Pss documented in this encounterTrihealth [facility]11-21-2022 Miscellaneous Notes* Telephone Encounter - Reanna Brannon [...] tetanus booster? Unsure Protocols used: Skin Foreign [id number] documented in this encounterTrihealth [facility]10-06-2022 Miscellaneous Notes* Telephone Encounter - Kaitlyn Hernández RPh - 06/22/2022 11:52 AM EDT PharmD sent request to PAP technicians to assist with [facility] application for Jardiance 10mg daily. Kaitlyn Hernández PharmD, [facility] Primary Care Clinical Pharmacist documented in this encounterTrihealth [facility]10-06-2022 History of Present illness Narrative* Kaitlyn [...] 217 06/11 233 157 06/10 207 225 9/22 163 05/29 241 151 Hypoglycemia: none Preventative Medications: On LURDES/ARB: Yes On Statin: Yes ROS: Patient denies CP, THAYER, blurred vision, dizziness or lightheadedness; reports SOB which is baseline for patient Patient denies symptoms of hypoglycemia (sweating, anxiety, palpitations, hunger, and tremor) Patient denies symptoms of hyperglycemia (polyuria, polydipsia, polyphagia) Patient denies potential medication adverse effects DIET/EXERCISE/SOCIAL Hx: Has been eating fair food a lot this summer; went to [place] daily; goes several times per week Fried veggies, sandwiches Breakfast: couple of eggs, 4 pieces muñoz; occasionally will have waffle Lunch: yesterday had small serving mashed potatoes, baked beans, and steak Dinner: usually the same as lunch; occasionally will have salad No exercise MEDICATIONS: Pill bottles are not present Adherence: denies missed doses Pharmacy: [facility] in [place] Rx coverage: [employer] Affordability: Gets Eliquis, Humalog, and [employer]i through [employer] Diabetes supplies: [employer] Organization System: daughter sets up pill box, [...] mouth every 12 hours. Prescribed by outside envelope folder insulin glargine (LANTUS SOLOSTAR U-100 INSULIN) 100 [...] 130 08/16/2021 The ASCVD Risk score (Mariann GUIDRY, et al., 2019) failed to calculate for the following reasons: The valid total cholesterol range is 130 to 320 mg/dL Albumin/Creat Ratio (mg/g) Date Value 08/16/2021 231 (H) PHARMACOTHERAPY ASSESSMENT/PLAN: 1. Type 2 diabetes mellitus without complication, with long-term current use of insulin ([facility]) - ICD9: 250.00, V58.67, ICD10: E11.9, Z79.4 [...] verbalized understanding of instructions. Kaitlyn Hernández PharmD, [facility] Primary Care Clinical Pharmacist The majority of the pharmacy visit (> 50%) was spent counseling and/or coordinating care for thepatient. interaction: face to face time was 35 minutes. documented in this encounterTrihealth [facility]10-06-2022 Instructions* Patient Instructions* Kaitlyn Hernández RPh - 06/22/2022 11:00 AM EDT START Jardiance 10mg daily. If it is too expensive, let me know. Start to work on your diet. We want all blood sugars to be less than 200 mg/dL. documented in this encounterTrihealth [facility]09-14-2022 History of Present illness Narrative* Mathieu Virgen MD - 05/31/2022 10:33 AM EDT [...] Abs Lymph 1.00 - 4.00 k/uL 1.67 [place]% % 11.8 Abs [place] <0.87 k/uL 1.20 (H) Eosin% % 3.3 [...] mouth every 12 hours. Prescribed by outside envelope folder simvastatin (ZOCOR) 40 mg tablet Take 1 [...] 136/68 Pulse 87 Ht 185.4 cm (6' 1) Wt 136.1 kg (300 lb) SpO2 94% [...] INFLUENZA SEASONAL QUADRIVALENT HIGH DOSE AGE 65+ Mathieu Virgen MD RTO in six month documented in this encounterTrihealth [facility]08-22-2022 Miscellaneous Notes* Telephone Encounter - Christian Bob LPN - 05/08/2022 5:59 PM EDT Patient phones requesting refills as follows: Requested Prescriptions Pending Prescriptions Disp Refills losartan-hydroCHLOROthiazide (HYZAAR) 100-12.5 mg per tablet 90 tablet 1 Sig: Take 1 tablet by mouth once daily. ALFA 03/03/22 NOV 05/31/22 Please review and advise. Christian Bob LPN documented in this encounterTrihealth [facility]07-23-2022 History of Present illness Narrative* Andrew Guallpa, PAIGE.RN ORTHOPAEDIC - 04/08/2022 2:52 PM EDT Subjective HPI Nontoxic-appearing male presents urgent care chief complaint medication concerns. Patient states hetook his evening carvedilol 4 to 5 hours to earlier today. States he is concerned because his heart feels funny. States my heart hurts. States for lunch he accidentally took his [...] with: Acute Visit: took evening meds to [facility], worried about having affects with carvedilol PAST [...] mouth every 12 hours. Prescribed by outside envelope folder simvastatin (ZOCOR) 40 mg tablet Take 1 [...] care. Andrew Guallpa APRN.CAESAR documented in this encounterTrihealth [facility]07-07-2022 Miscellaneous Notes* Telephone Encounter - Kaitlyn Hernández RPh - 03/23/2022 1:22 PM EDT [employer] completed Rx section of [employer] application for Basaglar (to replace Lantus). Full application not required since patient already enrolled and receiving free Humalog. Rx placed on PCP's desk for signature. Kaitlyn Hernández PharmD, [facility] Primary Care Clinical Pharmacist Lisa Souza [facility] documented in this encounterTrihealth [facility]07-07-2022 History of Present illness Narrative* Kaitlyn Hernández RPh - 03/23/2022 11:00 AM EDT Primary [...] 03/04 220 Hypoglycemia: none Preventative Medications: On LURDES/ARB: Yes On Statin: Yes ROS: Patient denies [...] mouth every 12 hours. Prescribed by outside envelope folder insulin glargine (LANTUS SOLOSTAR U-100 INSULIN) 100 [...] TG 130 08/16/2021 The ASCVD Risk score ([place] ELISA Khan., et al., 2013) failed to calculate for the following reasons: The valid total cholesterol range is 130 to 320 mg/dL Albumin/Creat Ratio (mg/g) Date Value 08/16/2021 231 (H) PHARMACOTHERAPY ASSESSMENT/PLAN: 1. Type 2 diabetes mellitus without complication, with long-term current use of insulin ([facility]) - ICD9: 250.00, V58.67, ICD10: E11.9, Z79.4 [...] Basaglar so he can get it through [employer] to replace Lantus Applauded on reducing portion [...] verbalized understanding of instructions. Kaitlyn Hernández PharmD, [facility] Primary Care Clinical Pharmacist Lisa Souza [facility] The majority of the pharmacy visit (> 50%) was spent counseling and/or coordinating care for thepatient. interaction: face to face time was 35 minutes. documented in this encounterTrihealth [facility]07-07-2022 Instructions* Patient Instructions* Kaitlyn Hernández RPh [...] accurate than wrist cuffs. documented in this encounterTrihealth Bethes[facility]06-20-2022 Miscellaneous Notes* Telephone Encounter - Mathieu Virgen MD - 03/06/2022 5:25 PM EDT [...] day. Please review and resend to the [facility] Aid on [facility]. Daughter, Farida, can be reached at [phone] documented in this encounterTrihealth Bethesda Butler Hospital06-20-2022 Miscellaneous Notes* Telephone Encounter - Jaylene Henley LPN - 03/06/2022 12:13 PM EDT Patient has been identified by name and date of : Yes Type of form: Prescription Assistance [facility] (humalog kwikpen) Form received via: at visit form was given to Dr Param Virgen completed form When form is completed, fax form to fax number provided. Form has been forwarded to: Nurse and faxed 03/06/22 Jaylene Henley LPN documented in this encounterTrihealth Bethesda Butler Hospital06-17-2022 History of Present illness Narrative* Mathieu Virgen MD - 03/03/2022 10:40 AM EDT [...] mouth every 12 hours. Prescribed by outside envelope folder Losartan-hydroCHLOROthiazide 100-12.5 mg per tablet Take 1 [...] - HEP C AB IA W/CONF SCRN Mathieu Virgen RTO in three months and prn. documented in this encounterTrihealth Bethesda Butler Hospital05-26-2022 Miscellaneous Notes* Telephone Encounter - Jaylene Henley LPN - 02/09/2022 11:36 AM EDT [facility] [address] Chart Copy of medications dispensed to patient for home use February 09, 2022 Physician Initial: MIRANDA Alarcon Medication: Lantus Qty: 5 boxes Directions: Inject 90 units daily. Medications administered, dispensed and verified on the date indicated above Patient has been notified to case picker medication in Dr. Virgen's office. Jaylene Henley LPN documented in this encounterTrihealth Bethesda Butler Hospital05-24-2022 Miscellaneous Notes* Telephone Encounter - Kaitlyn Hernández RP - 02/07/2022 10:17 AM EDT PharmClovis called daughter. She said they were able to get Lantus yesterday, got full box of Lantus for$35 (insurance covered it). PharmClovis spoke with daughter, will plan to apply for Basaglar PAP [employer] in March at next PharmD appt so patient doesn't have this issue again with [employer]. Kaitlyn Hernández PharmD, [facility] Primary Care Clinical Pharmacist [facility] * Telephone Encounter - Kaitlyn Hernández RPh - 02/06/2022 4:01 PM EDT Daughter, Farida, called and said pharmacy can't give her [...] me updated on status. Kaitlyn Hernández PharmD, [facility] Primary Care Clinical Pharmacist [facility] * Telephone Encounter - Kaitlyn Hernández RPh - 02/06/2022 2:37 PM EDT PharmD called and spoke with Farida. States patient is in need of 1 [...] Semglee - can purchase a vial from [facility] with a GoodRx coupon for ~$60. Patient [...] She has no issues getting Humalog through [facility]. Briefly discussed possibly switching patient from Lantus to Basaglar later this summer so no longer has issues with insulin supply. Daughter thought this would be a good idea so will do paperwork later this summer. PharmD will await daughter's call. Kaitlyn Hernández PharmD, [facility] Primary Care Clinical Pharmacist Lisa Souza [facility] * Telephone Encounter - Jaylene Henley LPN - 02/06/2022 1:26 PM EDT Spoke with Farida and given number for [employer]. She is also going to check with pharmacy about cost of medication. * Telephone Encounter - GURPREET Murray - 02/06/2022 10:41 AM EDT [facility] does not have any vouchers for Lantus that would work with patient insurance. Family could checkwith [employer]([phone]) for short term cost assistance. [facility] will also send note to [facility] as Sw noted that patient follows with Kaitlyn in regards to hisdiabetes care and see if she has any short term assistance ideas. * Telephone Encounter - Jaylene Henley LPN - 02/06/2022 10:02 AM EDT Patient daughter states that [employer] sends refill form to our office 1 [...] - 02/06/2022 8:24 AM EDT Patient's daughter, Farida,calling In regard this request; Refills have been requested for the following medications: insulin glargine (LANTUS SOLOSTAR U-100 INSULIN) 100 unit/mL (3 mL) [Mathieu Virgen MD] Preferred pharmacy: [facility] [place] [address] - [id number] - [phone] Delivery method: MailD Daughter says patient will be out of the medication tonight. The shipment for this medication does not go out until today so she is asking for a pen that he could have. Please return call to daughter, [phone] documented in this encounterTrihealth Bethesda Butler Hospital05-20-2022 Instructions* Patient Instructions* Papito Castano V, DO - 02/03/2022 2:02 PM EDT Thank you for choosing the [facility] for your acute care [...] physician or booking an appointment, please call [phone] or speak with any Patient Geriatric Social Work Professor. Hours: Sunday through Sunday 7:30 am to 7:00 pm. Sunday and Sunday: 8:00 am to 2:30 pm. documented in this encounterTrihealth Bethesda Butler Hospital05-20-2022 History of Present illness Narrative* Papito [...] calf and leg. [facility], compression wrapping. PAST MEDICAL HISTORY [...] mouth every 12 hours. Prescribed by outside envelope folder Losartan-hydroCHLOROthiazide 100-12.5 mg per tablet Take 1 [...] Continuous Intervention/Comfort measure: Medication documented in this encounterTrihealth Bethesda Butler Hospital05-18-2022 Miscellaneous Notes* Telephone Encounter - Tammy Davies LPN - 02/01/2022 10:28 AM EDT Patient daughter Farida calling asking for refill on father Lantus insulin 90 day supply from Patient assistance with [employer]. Yesterday request was not sent correctly. She said gets faxed to [employer]. The Insulin gets mailed to his home. She did not have the fax number, she gave me phone number for [employer] [phone]. Father has 4 days Lantus left. Please advise documented in this [facility]05-17-2022 Miscellaneous Notes* Telephone Encounter - Janet King Ma - 01/31/2022 4:54 PM EDT ALFA 11/21/21 NOV 03/03/22 Has pending labs due before next appt Being sent to mail order pahrmacy * Telephone Encounter - Radha Estrada - 01/31/2022 4:44 PM EDT Patient has been identified by name and date of : Yes Pending Prescriptions Disp Refills LANTUS SOLOSTAR U-100 INSULIN 100 UNIT/ML (3 ML) SUBCUTANEOUS PEN 27 Pen 1 Sig: Inject 90 Units subcutaneously daily at bedtime. JANET: No RX INSTRUCTIONS: Patient aware RX will be sent to pharmacy. No need to notify patient. Radha Estrada documented in this encounterTrihealth Bethesda [facility] Hospital05-13-2022 History of Present illness Narrative* Saad Park APRN.RN ORTHOPAEDIC - 01/27/2022 3:27 PM EDT Images from the original note were not included. Subjective HPI HPI Faisal Alarcon is a 76 year old male who presents today for CC of sudden right calf pain while getting onto oracle engineer. This started today. Has tried nothing for relief. Symptoms are worsened by walking. Denies numbness/tingling of right lower extremity. .Patient presents with: right calf pain: x 2 hours-pulled something getting on oracle engineer PAST MEDICAL HISTORY Diagnosis Date DIABETES MELLITUS [...] mouth every 12 hours. Prescribed by outside envelope folder insulin glargine (LANTUS SOLOSTAR U-100 INSULIN) 100 [...] encounter - ICD9: 844.8, ICD10: S86.811A Compression applied/lurdes Pain relief and rest discussed Has a walking boot at home can try for comfort. F/u for worsening symptoms Has walker at home advised to use. - CONSULT TO ORTHOPAEDICS - Agrees to plan Saad Park APRN.RN ORTHOPAEDIC documented in this encounterTrihealth Bethes[facility] Hospital04-28-2022 Miscellaneous Notes* Telephone Encounter - Kaitlyn Hernández RPh - 01/12/2022 3:09 PM EDT During PharmD visit for DM today, patient's daughter reported patient needs a refill of colestipol.Refill order pended for PCP signature if appropriate. Pending Prescriptions Disp Refills COLESTIPOL 1 GRAM TABLET 60 tablet 5 Sig: Take 1 tablet by mouth twice daily. JANET: No Kaitlyn eHrnández RPh documented in this encounterTrihealth Bethesda [facility] Hospital04-28-2022 History of Present illness Narrative* Kaitlyn [...] carb intake). PharmD also mailed patient's daughter, Farida Beck, the PAP applications for Lantus, Eliquis, and [...] 135 155 Hypoglycemia: none Preventative Medications: On LURDES/ARB: Yes On Statin: Yes ROS: Patient denies [...] Adherence: denies missed doses [facility]: [facility] coverage: [employer] Affordability: Gets Eliquis, Humalog, [...] day. COMPOUNDED PRESCRIPTION 1 Each twice daily. Accuchbyyd compact test strips, dx-NIDDM dilTIAZem CD (CARDIZEM CD) 120 mg 24 hr capsule Take 1 capsule by mouth once daily. ELIQUIS 5 mg tab(s) Take 1 tablet by mouth twice daily. finasteride (PROSCAR) 5 mg tablet None Entered flecainide (TAMBOCOR) 150 mg tablet Take 1 tablet by mouth every 12 hours. Prescribed by outside envelope folder flecainide (TAMBOCOR) 150 mg tablet Take 150 [...] 130 08/16/2021 The ASCVD Risk score (Lucian DC Jr., et al., 2013) failed to calculate [...] BCPS Primary Care Clinical Pharmacist Lisa Souza [facility] The majority of the pharmacy visit (> 50%) was spent counseling and/or coordinating care for thepatient. interaction: face to face time was 35 minutes. documented in this encounterTrihealth Bethes[facility] Hospital04-28-2022 Instructions* Patient Instructions* Kaitlyn Hernández RPh [...] butter DRINK MORE WATER documented in this encounterTrihealth Bethes[facility] Hospital04-18-2022 Miscellaneous Notes* Telephone Encounter - Kaitlyn Hernández RPh - 01/02/2022 2:42 PM EDT PharmClovis called [facility] ([phone]) and spoke with a helpful service support representative. She stated patient is due to have a shipment tomorrow. Cl[employer] changed the delivery information so this shipment will be shipped to patient's home. PharmClovis called patient's daughter, Farida, and informed of the above information. Kaitlyn Hernández PharmD, [facility] Primary Care Clinical Pharmacist Lisa Souza [facility] * Telephone Encounter - Denisha Shepard APRN.CNP - 12/30/2021 5:51 PM EDT Is this something that can be done, or does it need to come here? * Telephone Encounter - Nisha Wilson - 12/30/2021 12:05 PM EDT Patient's daughter calling regarding patient's request for medicationi nsulin lispro (HUMALOG KWIKPEN INSULIN) 100 unit/mL . DaughterFarida [facility] . Medication is being sent to [facility] instead of patient's home. Daughter is asking for this to be changed to being delivered to patient's home. Please return call to Farida ([phone]) when corrected. documented in this encounterTrihealth Bethes[facility] Hospital04-14-2022 Miscellaneous Notes* Telephone Encounter - Leslie Estrada - 12/29/2021 3:38 PM EDT Patient has been identified by name and date of : Yes Pending Prescriptions Disp Refills INSULIN LISPRO (U-100) 100 UNIT/ML SUBCUTANEOUS PEN 5 Pen 1 Sig: Inject 26 Units subcutaneously three times daily before meals. JANET: No RX INSTRUCTIONS: Patient aware RX escripted to mail away pharmacy. No need to notify patient. Leslie Landin Pss documented in this encounterTrihealth Bethes[facility] Hospital04-14-2022 Miscellaneous Notes* Telephone Encounter - Janet King Ma - 12/29/2021 3:12 PM EDT refaxed to [facility] * Telephone Encounter - Julianna Lynn LPN - 12/13/2021 4:13 PM EDT Faxed to number provided. * Telephone Encounter - Mathieu Virgen MD - 12/13/2021 4:02 PM EDT done * Telephone Encounter - Aly Mandel Ma - 12/13/2021 3:57 PM EDT Please print/sign rx and than fax to [facility] Mandel [facility] * Telephone Encounter - Grace Greene - 12/13/2021 3:45 PM EDT Faisal Alarcon's daughter is calling Mathieu Virgen MD office today requesting a corrected script for Humalog is sent to [facility]. The last script sent was for 16 units and not 26 units. He is going to run out of insulin Please advise insulin lispro (HUMALOG KWIKPEN INSULIN) 100 unit/mL 5 Pen 1 11/03/2021 Sig: Inject 26 Units subcutaneously three times daily before meals. Class: Med Update Route: SUBCUTANEOUS documented in this encounterTrihealth Bethes[facility] Butler Hospital03-31-2022 Miscellaneous Notes* Telephone Encounter - Janet King Ma - 12/15/2021 6:02 PM EDT PCP portion signed and returned to PharmD * Telephone Encounter - Kaitlyn Henrández RPh - 12/15/2021 3:12 PM EDT PharmD started PAP application for Jardiance today. Tamiko completed by patient, only requires PCP signature. Tamiko placed on PCP's desk for signature with instructions to return to PharmD office. Other portion of tamiko is saved in PharmD file cabinet. Will plan to wait until patient's daughter, Farida, returns call regarding their decision to officially pursue Jardiance PAP (they plan to discuss with patient's urologist - can see PharmD note from 12/15 for details). Kaitlyn Hernández PharmD, BCPS Primary Care Clinical Pharmacist Lisa Souza [facility] documented in this encounterTrihealth Bethesda Butler Hospital10-27-2021 History of Present illness Narrative* Malik Luna RT(Leslee) - 07/13/2021 10:10 AM EDT Radiology Service [...] 13, 2021 10:08 AM documented in this encounterTrihealth Bethesda Butler Hospital09-08-2021 History of Present illness Narrative* Brenda Arrington RT(R) - 05/25/2021 2:50 PM EDT Radiology Service [...] IV DATA: Not applicable SIGNED BY: RT Griselda(R) May 25, 2021 2:53 PM documented in this encounterTrihealth Bethes[facility] Hospital05-17-2021 History of Past illness Narrative* Problem Noted Date Resolved Date SOB (shortness of breath) 01/31/20212020 Abnormal EKG 01/31/2021 05/06/2021 Sciatica 06/15/2005 05/06/2021 Paranoid schizophrenia, subc hronic condition with acute exacerbation 05/11/2005 04/23/2017 documented as of this encounter (statuses as of 12/12/2021) [facility]05-17-[facility] History of Past illness Narrative* Problem Noted Date Resolved Date SOB (shortness of breath) 01/31/20212020 Abnormal EKG 01/31/2021 05/06/2021 Sciatica 06/15/2005 05/06/2021 Paranoid schizophrenia, subc hronic condition with acute exacerbation 05/11/2005 04/23/2017 documented as of this encounter (statuses as of 12/15/2021) [facility] of Past illness Narrative* Problem Noted Date Resolved Date SOB (shortness of breath) 01/31/20212020 Abnormal EKG 01/31/2021 05/06/2021 Sciatica 06/15/2005 05/06/2021 Paranoid schizophrenia, subc hronic condition with acute exacerbation 05/11/2005 04/23/2017 documented as of this encounter (statuses as of 12/29/2021) [facility] of Past illness Narrative* Problem Noted Date Resolved Date SOB (shortness of breath) 01/31/20212020 Abnormal EKG 01/31/2021 05/06/2021 Sciatica 06/15/2005 05/06/2021 Paranoid schizophrenia, subc hronic condition with acute exacerbation 05/11/2005 04/23/2017 documented as of this encounter (statuses as of 01/02/2022) [facility] of Past illness Narrative* Problem Noted Date Resolved Date SOB (shortness of breath) 01/31/20212020 Abnormal EKG 01/31/2021 05/06/2021 Sciatica 06/15/2005 05/06/2021 Paranoid schizophrenia, subc hronic condition with acute exacerbation 05/11/2005 04/23/2017 documented as of this encounter (statuses as of 01/12/2022) [facility] of [facility] illness Narrative* Problem Noted Date Resolved Date SOB (shortness of breath) 01/31/20212020 Abnormal EKG 01/31/2021 05/06/2021 Sciatica 06/15/2005 05/06/2021 Paranoid schizophrenia, subc hronic condition with acute exacerbation 05/11/2005 04/23/2017 documented as of this encounter (statuses as of 01/12/2022) [facility] Narrative* Problem Noted Date Resolved Date SOB (shortness of breath) 01/31/20212020 Abnormal EKG 01/31/2021 05/06/2021 Sciatica 06/15/2005 05/06/2021 Paranoid schizophrenia, subc hronic condition with acute exacerbation 05/11/2005 04/23/2017 documented as of this encounter (statuses as of 01/27/2022) [facility] Narrative* Problem Noted Date Resolved Date SOB (shortness of breath) 01/31/20212020 Abnormal EKG 01/31/2021 05/06/2021 Sciatica 06/15/2005 05/06/2021 Paranoid schizophrenia, subc hronic condition with acute exacerbation 05/11/2005 04/23/2017 documented as of this encounter (statuses as of 01/31/2022) [facility] Narrative* Problem Noted Date Resolved Date SOB (shortness of breath) 01/31/20212020 Abnormal EKG 01/31/2021 05/06/2021 Sciatica 06/15/2005 05/06/2021 Paranoid schizophrenia, subc hronic condition with acute exacerbation 05/11/2005 04/23/2017 documented as of this encounter (statuses as of 02/01/2022) [facility] Narrative* Problem Noted Date Resolved Date SOB (shortness of breath) 01/31/20212020 Abnormal EKG 01/31/2021 05/06/2021 Sciatica 06/15/2005 05/06/2021 Paranoid schizophrenia, subc hronic condition with acute exacerbation 05/11/2005 04/23/2017 documented as of this encounter (statuses as of 02/02/2022) [facility] Narrative* Problem Noted Date Resolved Date SOB (shortness of breath) 01/31/20212020 Abnormal EKG 01/31/2021 05/06/2021 Sciatica 06/15/2005 05/06/2021 Paranoid schizophrenia, subc hronic condition with acute exacerbation 05/11/2005 04/23/2017 documented as of this encounter (statuses as of 02/03/2022) [facility] Narrative* Problem Noted Date Resolved Date SOB (shortness of breath) 01/31/20212020 Abnormal EKG 01/31/2021 05/06/2021 Sciatica 06/15/2005 05/06/2021 Paranoid schizophrenia, subc hronic condition with acute exacerbation 05/11/2005 04/23/2017 documented as of this encounter (statuses as of 02/07/2022) [facility] Narrative* Problem Noted Date Resolved Date SOB (shortness of breath) 01/31/20212020 Abnormal EKG 01/31/2021 05/06/2021 Sciatica 06/15/2005 05/06/2021 Paranoid schizophrenia, subc hronic condition with acute exacerbation 05/11/2005 04/23/2017 documented as of this encounter (statuses as of 02/09/2022) [facility] Narrative* Problem [...] of this encounter (statuses as of 03/03/2022) [facility] Narrative* Problem [...] of this encounter (statuses as of 03/06/2022) [facility] Narrative* Problem [...] of this encounter (statuses as of 03/06/2022) [facility] Narrative* Problem [...] of this encounter (statuses as of 03/23/2022) [facility] Narrative* Problem [...] of this encounter (statuses as of 03/23/2022) [facility] Narrative* Problem [...] of this encounter (statuses as of 04/08/2022) [facility] Narrative* Problem [...] of this encounter (statuses as of 05/08/2022) [facility] Narrative* Problem [...] of this encounter (statuses as of 05/31/2022) [facility] Narrative* Problem [...] of this encounter (statuses as of 06/22/2022) [facility] Narrative* Problem [...] of this encounter (statuses as of 06/22/2022) [facility] Narrative* Problem [...] of this encounter (statuses as of 08/14/2022) [facility] Narrative* Problem [...] of this encounter (statuses as of 08/21/2022) [facility] Narrative* Problem [...] of this encounter (statuses as of 09/26/2022) [facility] Narrative* Problem [...] of this encounter (statuses as of 09/29/2022) [facility] Narrative* Problem [...] of this encounter (statuses as of 10/04/2022) [facility] Narrative* Problem [...] of this encounter (statuses as of 10/04/2022) [facility]arrative* Problem [...] of this encounter (statuses as of 10/16/2022) [facility]arr[facility]* Problem [...] of this encounter (statuses as of 10/16/2022) [facility]arr[facility]* Problem [...] of this encounter (statuses as of 10/26/2022) [facility]arrative* Problem [...] of this encounter (statuses as of 11/10/2022) [facility]arrative* Problem [...] of this encounter (statuses as of 11/13/2022) [facility] Narrative* Problem [...] of this encounter (statuses as of 11/22/2022) [facility] Narrative* Problem [...] of this encounter (statuses as of 11/27/2022) [facility] Narrative* Problem [...] of this encounter (statuses as of 11/29/2022) [facility] Narrative* Problem [...] of this encounter (statuses as of 01/19/2023) [facility] Narrative* Problem [...] of this encounter (statuses as of 02/14/2023) [facility]arrative* Problem [...] of this encounter (statuses as of 02/16/2023) [facility]arrative* Problem [...] of this encounter (statuses as of 02/17/2023) [facility]arr[facility]* Problem [...] of this encounter (statuses as of 02/22/2023) [facility]arrative* Problem [...] of this encounter (statuses as of 03/03/2023) [facility]arrative* Problem [...] of this encounter (statuses as of 03/06/2023) [facility]* Problem [...] of this encounter (statuses as of 03/20/2023) [facility]arrative* Problem [...] of this encounter (statuses as of 03/22/2023) [facility]arrative* Problem [...] of this encounter (statuses as of 04/13/2023) [facility]* Problem [...] of this encounter (statuses as of 04/26/2023) [facility] Narrative* Problem Noted Date Diagnosed Date Resolved Date SOB (shortness of breath) 01/31/2021 Abnormal EKG 01/31/2021 05/06/2021 Nonspecific abnormal results of liver function study 03/31/2009 03/03/2022 Overview: ALT 57 in 6-08, 83 in -09, 75 in 7- Clarify when Crestor started as labs first abnl on 09-19-08 US 03-25: multiple, small GS with no GB wall thickening, liver with fatty infiltration Sciatica 06/15/2005 05/06/2021 Paranoid schizophrenia, subc hronic condition with acute exacerbation 05/11/2005 04/23/2017 documented as of this encounter (statuses as of 05/01/2023) [facility] [facility] History of Past illness Narrative* Problem Noted Date Diagnosed Date Resolved Date SOB (shortness of breath) 01/31/2021 Abnormal EKG 01/31/2021 05/06/2021 Nonspecific abnormal results of liver function study 03/31/2009 03/03/2022 Overview: ALT 57 in -08, 83 in 09-25, 75 in 03-25 Clarify when Crestor started as labs first abnl on 09-19-08 US 03-25: multiple, small GS with no GB wall thickening, liver with fatty infiltration Sciatica 06/15/2005 05/06/2021 Paranoid schizophrenia, subc hronic condition with acute exacerbation 05/11/2005 04/23/2017 documented as of this encounter (statuses as of 05/02/2023) [facility]05-17[facility] History of Past illness Narrative* Problem Noted Date Diagnosed Date Resolved Date SOB (shortness of breath) 01/31/2021 Abnormal EKG 01/31/2021 05/06/2021 Nonspecific abnormal results of liver function study 03/31/2009 03/03/2022 Overview: ALT 57 in -08, 83 in 09-25, 75 in 03-25 Clarify when Crestor started as labs first abnl on 09-19-08 US 03-25: multiple, small GS with no GB wall thickening, liver with fatty infiltration Sciatica 06/15/2005 05/06/2021 Paranoid schizophrenia, subc hronic condition with acute exacerbation 05/11/2005 04/23/2017 documented as of this encounter (statuses as of 05/12/2023) [facility]05-17[facility] History of Past illness Narrative* Problem [...] of this encounter (statuses as of 05/17/2023) [facility]-17[facility] History of Past illness Narrative* Problem [...] of this encounter (statuses as of 05/19/2023) [facility]05-17-[facility] History of Past illness Narrative* Problem [...] of this encounter (statuses as of 06/04/2023) [facility]05-10-[facility]21 History of Present illness Narrative* Malik Luna RT(R) - 01/24/2021 2:40 PM EDT Radiology [...] 24, 2021 2:41 PM documented [facility] encounter[facility]Dis[facility] summary Author Dr. Kebede [facility] November 21, 2022 4:33pm Note Date/Time November 21, 2022 4:26 pm [facility] Medical Records Department [address] [place] [id number] Discharge Summary 11/21/22 1625 MR#: [id number] Acct: [id number] Name: FAISAL ALARCON Rep #:[id number] : 1945 77 From: Narda Kebede MD PCP: Dr. Mathieu Virgen MD Status:ADM I NO Location: [place] [address] Providers Date of Admission: 11/21/22 Date of Discharge: 11/21/22 Primary Care Physician: Dr. Mathieu Virgen MD Reason For Visit: CHEST PAIN Diagnosis Discharge Diagnosis (1) Chest pain: Status: Acute Code(s): R07.9 - Chest pain, unspecified Medications at Discharge Home Medications simvastatin 40 mg tablet 40 mg PO QHS cholesterol 04/21/15 apixaban 5 mg tablet (Eliquis) 5 mg PO BID #180 tabs 02/22/21 aspirin 81 mg tablet,delayed release 81 mg PO DAILY #90 tabs 02/22/21 carvedilol 25 mg tablet 25 mg PO BID #180 tabs 02/22/21 losartan 100 mg-hydrochlorothiazide 12.5 mg tablet 1 tab PO DAILY 06/23/21 diltiazem HCl 120 mg capsule,extended release 24 hr 120 mg PO DAILY #90 caps 07/18/21 insulin lispro 100 unit/mL subcutaneous pen (Humalog KwikPen (U-100) Insulin) 26unit subcut TID diabetes 10/24/21 metformin 500 mg tablet,extended release 24 hr 1,000 mg PO BID 10/24/21 albuterol sulfate 90 mcg/actuation aerosol inhaler 1 inh inhalation Q6H PRN SOB #8.5 grams 11/30/21 colestipol 1 gram tablet 1 g PO DAILY 01/30/22 insulin glargine 100 unit/mL (3 mL) subcutaneous pen (Lantus Solostar U-100 Insulin) 90 unit subcut QPM diabetes 01/30/22 spironolactone 25 mg tablet 25 mg PO DAILY #30 tabs 01/30/22 flecainide 150 mg tablet 150 mg PO Q12H #60 tabs 05/08/22 finasteride 5 mg tablet 5 mg PO DAILY 10/27/22 Hospital Course Summary of Care Provided Minutes Spent on Discharge: 35 Hospital Course: Patient is a 77-year-old gentleman with multiple comorbidities admitted with chest discomfort 1. Chest pain The patient was placed on a monitored bed [place] was ruled out with serial cardiac enzymes subsequently underwent nuclear stress test which was negative for stress-induced ischemia 2.Diabetes mellitus type II -patient's oral hypoglycemics held. Placed on long acting insulin, Accu-Cheks a.c. and at bedtime and covered with sliding scale insulin 3. Class II obesity with BMI of 39.9 ? Weight loss advised 4. Paroxysmal atrial fibrillation ? Rate controlled on flecainide diltiazem as well as Coreg patient is also on systemic anticoagulation with apixaban continue 5. Hypertension - Blood pressure controlled, home medications continued with dose adjustment as needed 6. Diabetes mellitus type II -patient's oral hypoglycemics held. Placed on long acting insulin, Accu-Cheks a.c. and at bedtime and covered with sliding scale insulin 7. Dyslipidemia -Patient is on statin therapy, continued at home dose 8. BPH ? Patient is on finasteride did continue 9. DVT prophylaxis ? Patient is on apixaban Weight / BMI Weight Weight: 137.3 kg Body Mass Index (BMI) 39.9 ABG / Lab / Microbiology Data Laboratory: Laboratory Results - last 24 hr 11/21/22 06:35: Troponin I High Sens 8 11/21/22 06:35: Magnesium 2.0 11/21/22 09:08: Troponin I High Sens 8 11/21/22 09:27: POC Glucose 137 H 11/21/22 11:52: POC Glucose 137 H 11/21/22 14:07: Troponin I High Sens 8 Meaningful Use Info Meaningful Use Diagnoses (Choose all that apply): None applicable Discharge Plan Admission Admit Date/Time: 11/21/22 06:45 Attending Provider: aNrda Kebede Primary Care Provider: Mathieu Virgen Consulting Providers: Mariza Stevenson Discharge Orders/Prescriptions Prescriptions: Continued Eliquis 5 mg tablet 5 mg PO BID Qty: 180 3RF Hold Instructions: Resume on 08/12/21. aspirin 81 mg tablet,delayed release (DR/EC) 81 mg PO DAILY Qty: 90 3RF Hold Instructions: Resume on 08/12/21. carvedilol 25 mg tablet 25 mg PO BID Qty: 180 3RF losartan-hydrochlorothiazide 100-12.5 mg tablet 1 tab PO DAILY metformin 500 mg tablet extended release 24 hr 1,000 mg PO BID spironolactone 25 mg tablet 25 mg PO DAILY Qty: 30 2RF albuterol sulfate 90 mcg/actuation HFA aerosol inhaler 1 inh INHALATION Q6H PRN (Reason: SOB) Qty: 8.5 6RF simvastatin 40 MG tablet 40 mg PO QHS insulin lispro [Humalog KwikPen Insulin] 100 unit/mL insulin pen 26 unit SUBCUT TID colestipol 1 gram tablet 1 g PO DAILY Lantus Solostar U-100 Insulin 100 unit/mL (3 mL) insulin pen 90 unit SUBCUT QPM diltiazem HCl 120 mg capsule,extended release 24hr 120 mg PO DAILY Qty: 90 3RF flecainide 150 mg tablet 150 mg PO Q12H Qty: 60 6RF finasteride 5 mg tablet 5 mg PO DAILY Referrals / Follow Up: Mathieu Virgen MD [Primary Care Provider] - Within 2 Weeks Disposition Disposition (needs filled in before D/C Order can be placed): Home, Self Care Charges/Coding Visit Charges Inpatient E&M: 12126 Disch Hosp >30min 11/21/22 1633 <Electronically signed by Narda Kebede MD> Cosigner Signature (if applicable): CC: Dr. Narda Kebede MD; Dr. Mathieu Virgen MD~ Signed [facility] Work Phone: Evaluation note* Diagnosis Type 2 diabetes mellitus without complication, with long-term current use of insulin (HCC) documented in this encounter [facility] note* Diagnosis Type 2 diabetes mellitus without complication, with long-term current use of insulin (HCC) documented in this encounter [facility] note* Diagnosis Type 2 diabetes mellitus without complication, with long-term current use of insulin (HCC) documented in this encounter [facility] note* Diagnosis Type 2 diabetes mellitus without complication, with long-term current use of insulin (HCC)- Primary documented in this encounter [facility] note* Diagnosis Diarrhea, unspecified type documented in this encounter [facility] note* Diagnosis Strain of calf muscle, right, initial encounter- Primary documented in this encounter [facility] note* Diagnosis Type 2 diabetes mellitus without complication, with long-term current use of insulin (HCC) documented in this encounter [facility] note* Diagnosis Gastrocnemius tear, right, initial encounter- Primary documented in this encounter [facility] note* Diagnosis Type 2 diabetes mellitus without complication, with long-term current use of insulin ([facility]) documented in this encounter [facility] note* Diagnosis Onset Date Resolution Status Dyspnea on minimal exertion acute Paroxysmal atrial fibrillation acute Essential (primary) hypertension chronic Hyperlipidemia chronic Morbid obesity acute SOB (shortness of breath) [place] Morbid obesity acute SOB (shortness of breath) [place] Essential (primary) hypertension chronic Dyspnea on minimal exertion acute Paroxysmal atrial fibrillation acute Essential (primary) hypertension chronic Hyperlipidemia chronic [facility] Work Phone: Evaluation note* Diagnosis Essential hypertension- Primary Unspecified essential hypertension Pure hypercholesterolemia Paroxysmal atrial fibrillation (HCC) Atrial fibrillation Type 2 diabetes mellitus with microalbuminuria, with long-term current use of insulin (HCC) Chronic anticoagulation Long-term (current) use of anticoagulants Need for hepatitis C screening test Special screening examination for other specified viral diseases documented in this encounter [facility] note* Diagnosis Diarrhea, unspecified type documented in this encounter [facility] note* Diagnosis Type 2 diabetes mellitus without complication, with long-term current use of insulin (HCC)- Primary Essential hypertension Unspecified essential hypertension documented in this encounter [facility] note* Diagnosis Onset Date Resolution Status Dyspnea on minimal exertion acute Paroxysmal atrial fibrillation acute Essential (primary) hypertension chronic Hyperlipidemia chronic Morbid obesity acute Restrictive airway disease a [facility] Work Phone: evaluation note* Diagnosis Chest pain, unspecified type- Primary Accidental medication error, initial encounter documented [facility] this encounter [facility]* Diagnosis Essential hypertension Unspecified essential hypertension documented [facility] this encounter [facility]* Diagnosis Essential hypertension- Primary Unspecified essential hypertension Paroxysmal atrial fibrillation (HCC) Atrial fibrillation Pure hypercholesterolemia Type 2 diabetes mellitus with microalbuminuria, with long-term current use of insulin (HCC) Chronic anticoagulation Long-term (current) use of anticoagulants Monocytosis Monocytosis (symptomatic) Need for influenza vaccination Need for prophylactic vaccination and inoculation against influenza documented in this encounter [facility]* Diagnosis Type 2 diabetes mellitus without complication, with long-term current use of insulin (HCC)- Primary documented in this encounter [facility]* Diagnosis Onset Date Resolution Status Dyspnea on minimal exertion acute Paroxysmal atrial fibrillation acute Essential (primary) hypertension chronic Hyperlipidemia [facility] Work Phone: evaluation note* Diagnosis Pure hypercholesterolemia [facility]* Diagnosis Type 2 diabetes mellitus without complication, with long-term current use of insulin (HCC) documented in this encounter [facility]* Diagnosis Onset Date Resolution Status Essential (primary) hypertension chronic Nonobstructive atherosclerosis of coronary artery chronic Paroxysmal atrial fibrillation chronic Chest pain acute Dyspnea on minimal exertion acute History of atrial fibrillation acute [facility] Work Phone: evaluation note* Diagnosis Type 2 diabetes mellitus with microalbuminuria, with long-term current use of insulin (HCC)- Primary documented [facility] this encounter [facility]* Diagnosis Chest pain, unspecified type- Primary Leukocytosis, unspecified type Type 2 diabetes mellitus with microalbuminuria, 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, 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, chronic condition Paroxysmal atrial fibrillation (HCC) Atrial fibrillation Essential hypertension Unspecified essential hypertension Pure hypercholesterolemia documented in this encounter [facility]* Diagnosis Skin mass- Primary Localized superficial swelling, mass, or lump documented in this encounter [facility]* Diagnosis Lesion of subcutaneous tissue- Primary Unspecified disorder of skin and subcutaneous tissue documented [facility] this encounter [facility]* Diagnosis Acute left ankle pain- Primary [facility] Diagnosis Onset Date Resolution Status History of atrial fibrillation acute Chest pain resolved Dyspnea on minimal exertion resolved Shortness of breath on exertion acute [facility] Work Phone: Evaluation note* Diagnosis Nausea- Primary Nausea alone Hypoglycemia Hypoglycemia, unspecified Type 2 diabetes mellitus with microalbuminuria, with long-term current use of insulin ([facility]) Leukocytosis, unspecified type Abnormal serum level of lipase Other nonspecific abnormal serum enzyme levels Benign prostatic hyperplasia with lower urinary tract symptoms, symptom details unspecified Urinary retention Retention of urine, unspecified documented in this encounter [facility]* Diagnosis Acute constipation- Primary Unspecified constipation [facility] Diagnosis OPENED IN ERROR- Primary To allow closing an encounter opened in error (used in SmartSet) documented in this encounter [facility]* Diagnosis Onset Date Resolution Status Shortness of breath on exertion acute [facility] Work Phone: Evaluation note* Diagnosis Inflamed acrochordon- Primary Unspecified hypertrophic and atrophic condition of skin Seborrheic keratoses, inflamed Inflamed seborrheic keratosis documented [facility] this encounter [facility]* Diagnosis Encounter for post surgical wound check- Primary documented [facility] this encounter [facility]* Diagnosis Near syncope- Primary Syncope and collapse Fall, initial encounter Acute upper respiratory infection Acute upper respiratory infections of unspecified site Morbid obesity (HCC) Morbid obesity documented [facility] this encounter [facility]* Diagnosis Essential hypertension- [...] not elsewhere classified documented [facility] this encounter [facility]* Diagnosis Diarrhea, unspecified type documented [facility] this encounter [facility]* Diagnosis Viral URI with cough- Primary Acute upper respiratory infections of unspecified site Suspected COVID-19 virus infection Bronchitis Bronchitis, not specified as acute or chronic documented [facility] this encounter [facility]* Diagnosis Nausea Nausea alone documented [facility] this encounter [facility] noteNo assessment information availableWSamaritan [facility] Work Phone: Evaluation note* Diagnosis Acute hip pain, right- Primary documented [facility] this encounter [facility]* Diagnosis Pure hypercholesterolemia documented [facility] this encounter [facility]* Diagnosis Essential hypertension Unspecified essential hypertension documented in this encounter [facility] note* Diagnosis Type 2 diabetes mellitus without complication, with long-term current use of insulin (HCC)- Primary documented [facility] this encounter [facility]* Diagnosis Paroxysmal atrial fibrillation (HCC)- Primary [...] of insulin (HCC) documented [facility] this encounter [facility]* Diagnosis Paroxysmal atrial fibrillation (HCC)- Primary Atrial fibrillation Restrictive lung disease Other diseases of lung, not elsewhere classified Pain of right hip Psoriatic arthritis (HCC) Psoriatic arthropathy documented [facility] this encounter [facility]* Diagnosis Viral URI with cough Acute upper respiratory infections of unspecified site Bronchitis Bronchitis, not specified as acute or chronic documented [facility] this encounter [facility]* Diagnosis Nausea Nausea alone documented in this encounter [facility] note* Diagnosis SOB (shortness of breath)- Primary Shortness of breath Bilateral leg edema Edema Weight increase Abnormal weight gain documented in this encounter [facility] note* Diagnosis 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 Venous incompetence Unspecified venous (peripheral) insufficiency Bilateral leg edema Edema SOB (shortness of breath) Shortness of breath Weight gain Abnormal weight gain CJ (obstructive sleep apnea) Obstructive sleep apnea (adult) (pediatric) Hypersomnolence Hypersomnia, unspecified Cushingoid facies Other ill-defined conditions documented in this encounter [facility] note* Diagnosis Venous incompetence- Primary Unspecified venous (peripheral) insufficiency Lymphedema of left leg Other lymphedema Varicose veins of both legs with edema documented in this encounter [facility] note* Diagnosis Abrasion of left hand, initial encounter- Primary documented in this encounter [facility] note* Diagnosis Encounter for medical assessment- Primary documented in this encounter [facility] note* Diagnosis Essential hypertension Unspecified essential hypertension documented in this encounter [facility] note* Diagnosis SOB (shortness of breath) Shortness of breath Bilateral leg edema Edema Weight increase Abnormal weight gain documented in this encounter [facility] note* Diagnosis Generalized weakness- Primary Other malaise and fatigue documented [facility] this encounter [facility]* Diagnosis Sinobronchitis Unspecified sinusitis (chronic) documented [facility] this encounter [facility]* Diagnosis Viral URI with cough Acute upper respiratory infections of unspecified site Bronchitis Bronchitis, not specified as acute or chronic documented in this encounter [facility] note* Diagnosis Acute hip pain, right documented in this encounter [facility] note* Diagnosis Acute left ankle pain documented in this encounter [facility] note* Diagnosis Diarrhea, unspecified type documented in this encounter [facility] note* Diagnosis Rib pain Chest pain, unspecified documented in this encounter [facility] note* Diagnosis SOB (shortness of breath) Shortness of breath documented [facility] this encounter [facility]* Diagnosis Essential hypertension- [...] (HCC) Psoriatic arthropathy documented [facility] this encounter [facility]* Diagnosis Snoring- Primary Other dyspnea and respiratory abnormality Witnessed episode of apnea Nocturnal leg movements Abnormal involuntary movements Frequent nocturnal awakening Other sleep disturbances Nocturia [facility]* Diagnosis 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 Systolic congestive heart failure, unspecified HF chronicity (HCC) Essential hypertension Unspecified essential hypertension Paroxysmal atrial fibrillation (HCC) Atrial fibrillation Restrictive lung disease Other diseases of lung, not elsewhere classified Schizophrenia, 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, chronic condition Chronic anticoagulation Long-term (current) use of anticoagulants Diastolic congestive heart failure, unspecified HF chronicity (HCC) Iron deficiency anemia, unspecified iron deficiency anemia type Vitamin B12 deficiency Other B-complex deficiencies [facility]* Diagnosis Nausea Nausea alone [facility]* Diagnosis Chronic respiratory failure with hypoxia (HCC)- Primary Chronic respiratory failure [facility] encounter [facility]* Diagnosis Systolic congestive heart failure, unspecified HF chronicity (HCC) [facility]* Diagnosis Systolic congestive heart failure, unspecified HF chronicity (HCC) [facility]* Diagnosis Pure [facility]cholesterolemia [facility] Diagnosis Dizziness- Primary Dizziness and giddiness Chest pain, unspecified type [facility]* Diagnosis Type 2 diabetes mellitus without complication, with long-term current use of insulin (HCC) documented [facility] this encounter [facility]* Diagnosis 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 [facility] encounter [facility]* Diagnosis Essential hypertension- Primary Unspecified essential hypertension Paroxysmal atrial fibrillation (HCC) Atrial fibrillation Dizziness Dizziness and giddiness Systolic congestive heart failure, unspecified HF chronicity (HCC) documented [facility] encounter [facility]* Diagnosis 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 Essential hypertension Unspecified essential hypertension [facility]* Diagnosis Essential hypertension Unspecified essential hypertension documented in this encounter [facility] note* Diagnosis 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 Nonobstructive atherosclerosis of coronary artery Pure hypercholesterolemia documented in this encounter [facility] note* Diagnosis Acute diastolic CHF (congestive heart failure) (HCC)- Primary Acute diastolic heart failure Psoriatic arthritis (HCC) Psoriatic arthropathy Schizophrenia, 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, 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, macular edema presence unspecified, unspecified laterality (HCC) Paroxysmal atrial fibrillation (HCC) Atrial fibrillation Mixed hyperlipidemia Sleep apnea, unspecified type Restrictive lung disease Other diseases of lung, not elsewhere classified Type 2 diabetes mellitus with microalbuminuria ([facility]) History of bladder cancer Personal history of malignant neoplasm of bladder Chronic anticoagulation Long-term (current) use of anticoagulants Malignant neoplasm of urinary bladder, unspecified site (HCC) 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, macular edema presence unspecified, unspecified retinopathy severity ([facility]) Encounter for screening examination for other mental health and behavioral disorders Screening for depression Leukocytosis, unspecified type Essential hypertension Unspecified essential hypertension documented in this encounter [facility] note* Diagnosis 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, macular edema presence unspecified, unspecified retinopathy severity ([facility]) documented in this encounter [facility] note* Diagnosis Contusion of left foot, subsequent encounter- Primary Foot pain, left Pain in limb Contusion of left foot, subsequent encounter Foot pain, left Pain in limb documented in this encounter [facility] note* Diagnosis Contusion of left foot, subsequent encounter Foot pain, left Pain in limb documented in this encounter [facility] note* Diagnosis Closed fracture of foot, unspecified laterality, initial encounter- Primary documented in this encounter [facility] note* Diagnosis Closed fracture of foot, unspecified laterality, initial encounter documented in this encounter [facility] note* Diagnosis Closed fracture of foot, unspecified laterality, initial encounter [facility] Diagnosis Essential hypertension- Primary Unspecified essential hypertension Nausea Nausea alone 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) [facility] Diagnosis Paroxysmal atrial fibrillation (HCC) Atrial fibrillation 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 If you have any further concerns please return the [facility] Work Phone: Reason for referral (narrative)* Diagnostic Procedure Only (Urgent) - Closed Specialty Diagnoses / Procedures Referred By Shara russo Referred To Contact XR IMAGING Diagnoses Acute left ankle pain Procedures XR ANKLE GENERAL 3V AP/LAT/OBL LEFT RADEX ANKLE COMPLETE MINIMUM 3 VIEWS Denisha Shepard APRN.CNP [address] [place] [address] Xr Imaging Referral ID Status Reason Start Date Expiration Date V isits Requested Visits Authorized [id number] Closed Auto-Generate d Referral 02/16/2023 03/17/2024 1 1 [facility] Outpatient Procedure (Routine) - Authorized Specialty Diagnoses / Procedures Referred By Shara russo Referred To [facility] Diagnoses Near syncope Fall, initial encounter Procedures ECG COMPLETE ECG ROUTINE ECG W/LEAST 12 LDS W/I&R Osvaldo Travis PA-C [address] [place] [address] [facility] [address] [facility] [address] Referral ID Status Reason Start Date Expiration Date Visits Requested Visits Authorized [id number] Authorized Auto-Generat ed Referral 05/18/2023 05/17/2024 1 1 [facility] for referral (narrative)* Diagnostic Procedure Only (Routine) - Closed Specialty Diagnoses / Procedures [facility]erred To Contact X[facility] Diagnoses Acute hip pain, right Procedures XR HIP GENERAL 3V PELV/AP/LAT RIGHT RADEX HIP UNILATERAL WITH PELVIS 2-3 VIEWS Pio Nicole MD [address] [place] [address] Xr Imaging [id number] Referral ID Status Reason Start Date Expiration Date V isits Requested Visits Authorized [id number] Closed Auto-Generate d Referral 07/23/2023 08/21/2024 1 1 [facility] for referral (narrative)* Outpatient Procedure (Routine) - Pending Review Specialty Diagnoses / Procedures [facility] Referred To Contact [facility] Diagnoses SOB (shortness of breath) Bilateral leg edema Weight increase Procedures ECG COMPLETE ECG ROUTINE ECG W/LEAST 12 LDS W/I&R Osvaldo Travis PA-C [address] [id number] [facility] [place] [address] [place] [address] Referral ID Status Reason Start Date Expiration Date Visits Requested Visits Authorized [id number] Pending Review Auto-Generat ed Referral 02/04/2024 02/03/2025 1 1 [facility] for referral (narrative)* Outpatient Procedure (Routine) - Pending Review Specialty Diagnoses / Procedures [facility] Referred To Contact [facility] Diagnoses Varicose veins of both lower extremities with inflammation Procedures US VENOUS INCOMPETENCY KARON VAS LAB DUP-SCAN XTR VEINS COMPLETE BILATERAL STUDY Osvaldo Travis PA-C [address] [place] [address] [facility] [place] [address] [place] [address] Referral ID Status Reason Start Date Expiration Date Visits Requested Visits Authorized [id number] Pending Review Auto-Generat ed Referral 02/28/2024 02/27/2025 1 1 * Consult, Test, Treat (Routine) - Authorized Specialty Diagnoses / Procedures Referred By Shara russo Referred To Contact Diagnoses CJ (obstructive sleep apnea) Hypersomnolence Procedures CONSULT TO SLEEP MEDICINE - ADULT OFFICE/OUTPATIENT [facility] 60 MINUTES Osvaldo Travis PA-C [address] [place] [address] Referral ID Status Reason Start Date Expiration Date Visits Requested Visits Authorized [id number] Authorized PCP Requested Referral 02/28/2024 02/27/2025 1 1 * Outpatient Procedure (Routine) - Authorized Specialty Diagnoses / Procedures Referred By Shara rsuso Referred To [facility] Diagnoses Bilateral leg edema SOB (shortness of breath) Weight gain Procedures ECHO ECHO TTHRC R-T 2D W/WOM-MODE COMPL SPEC&COLR D Osvaldo Travis PA-C [address] [place] [address] [facility] [place] [address] [place] [address] Referral ID Status Reason Start Date Expiration Date Visits Requested Visits Authorized [id number] Authorized Auto-Generat ed Referral 02/28/2024 02/27/2025 1 1 [facility] for referral (narrative)* Diagnostic Procedure Only (Routine) - Closed Specialty Diagnoses / Procedures Referred By Shara russo Referred To Contact XR IMAGING Diagnoses Acute hip pain, right Procedures XR HIP GENERAL 3V PELV/AP/LAT RIGHT RADEX HIP UNILATERAL WITH PELVIS 2-3 VIEWS Pio Nicole MD [address] [place] [address] [place] [address] Referral ID Status Reason Start Date Expiration Date V isits Requested Visits Authorized [id number] Closed Auto-Generate d Referral 07/23/2023 08/21/2024 1 1 [facility] for referral (narrative)* Diagnostic Procedure Only (Urgent) - Closed Specialty Diagnoses / Procedures Referred By Contac t Referred To Contact XR IMAGING Diagnoses Acute left ankle pain Procedures XR ANKLE GENERAL 3V AP/LAT/OBL LEFT RADEX ANKLE COMPLETE MINIMUM 3 VIEWS Denisha Shepard APRN.CNP [address] [place] [address] [place] [address] Referral ID Status Reason Start Date Expiration Date V isits Requested Visits Authorized [id number] Closed Auto-Generate d Referral 02/16/2023 03/17/2024 1 1 [facility] for referral (narrative)* Diagnostic Procedure Only (Routine) - Closed Specialty Diagnoses / Procedures Referred By Contac t Referred To Contact XR IMAGING Diagnoses Rib pain Procedures XR RIBS/CHEST 3V AP RIB/OBLS/CXR RT X-RAY RIBS, CHEST 3+ VW Mathieu Virgen MD [address] [place] [address] [place] [address] Referral ID Status Reason Start Date Expiration Date V isits Requested Visits Authorized [id number] Closed Auto-Generate d Referral 05/25/2021 09/16/2021 99 99 [facility] for referral (narrative)No reason for referral information availableWS[facility] Work Phone: Reason for visit Narrative* Diagnostic Procedure Only (Routine) - Closed Specialty Diagnoses / Procedures Referred By Contac t Referred To Contact XR IMAGING Diagnoses Acute hip pain, right Procedures XR HIP GENERAL 3V PELV/AP/LAT RIGHT RADEX HIP UNILATERAL WITH PELVIS 2-3 VIEWS Pio Nicole MD [address] [place] [address] [place] [address] Referral ID Status Reason Start Date Expiration Date V isits Requested Visits Authorized [id number] Closed Auto-Generate d Referral 07/23/2023 08/21/2024 1 1 [facility] for visit Narrative* Diagnostic Procedure Only (Urgent) - Closed Specialty Diagnoses / Procedures Referred By Contac t Referred To Contact XR IMAGING Diagnoses Acute left ankle pain Procedures XR ANKLE GENERAL 3V AP/LAT/OBL LEFT RADEX ANKLE COMPLETE MINIMUM 3 VIEWS Denisha Shepard APRN.CNP [address] [place] [address] [place] [address] Referral ID Status Reason Start Date Expiration Date V isits Requested Visits Authorized [id number] Closed Auto-Generate d Referral 02/16/2023 03/17/2024 1 1 [facility] for visit Narrative* Diagnostic Procedure Only (Routine) - Closed Specialty Diagnoses / Procedures Referred By Contac t Referred To Contact XR IMAGING Diagnoses Rib pain Procedures XR RIBS/CHEST 3V AP RIB/OBLS/CXR RT X-RAY RIBS, CHEST 3+ VW Mathieu Virgen MD [address] [place] [address] [place] [address] Referral ID Status Reason Start Date Expiration Date V isits Requested Visits Authorized [id number] Closed Auto-Generate d Referral 05/25/2021 09/16/2021 99 99 [facility] for visit Narrative* Diagnostic Procedure Only (Urgent) - Closed Specialty Diagnoses / Procedures Referred By Contac t Referred To Contact XR IMAGING Diagnoses Contusion of left foot, subsequent encounter Foot pain, left Procedures XR FOOT GENERAL 3V AP/LAT/OBL LEFT RADEX FOOT COMPLETE MINIMUM 3 VIEWS Mathieu Virgen MD [address] [place] [address] Phone: tel: fax: [place] [address] Referral ID Status Reason Start Date Expiration Date V isits Requested Visits Authorized [id number] Closed Auto-Generate d Referral 01/12/2025 02/11/2026 1 1 [facility] for visit Narrative* Diagnostic Procedure Only (Routine) - Closed Specialty Diagnoses / Procedures Referred By Contac t Referred To Contact XR IMAGING Diagnoses Closed fracture of foot, unspecified laterality, initial encounter Procedures XR FOOT GENERAL 3V AP/LAT/OBL LEFT RADEX FOOT COMPLETE MINIMUM 3 VIEWS [address] [place] [address] Phone: tel: fax: [place] [address] Referral ID Status Reason Start Date Expiration Date V isits Requested Visits Authorized [id number] Closed Auto-Generate d Referral 01/22/2025 02/21/2026 1 1 [facility] Advance Directives No Advanced Directives Records FoundDocuments on File Type Date Recorded Patient Clam Sorter Expl anation Advance Directive(s) Advance Directive(s) 03/14/2021 10:51 AM Documents on File Type Date Recorded Patient Clam Sorter Expl anation Advance Directive(s) Advance Directive(s) 03/14/2021 10:51 AM Advance Directive Response Recorded Date/ Time Living Will No October 26 12:42pm Power of Healthcare Science Specialist Yes October 26, 2021 12:42pm Advance Directive Response Recorded Date/ Time Name of Medical Power of Healthcare Science Specialist farida beck April 08, 2022 4:03pm Living Will Yes April 08, 2022 4:03pm Power of Healthcare Science Specialist Yes April 08 4:03pm Documents on File Type Date Recorded Patient Clam Sorter Expl anation Advance Directive(s) 03/14/2021 10:51 AM Advance Directive Response Recorded Date/ Time Living Will No August 08 9:00am Power of Healthcare Science Specialist No August 08, 2022 9:00am Advance Directive Response Recorded Date/ Time Name of Medical Power of Healthcare Science Specialist Farida Beck November 21, 2022 8:28am Living Will Yes November 21, 2022 8:28am Power of Healthcare Science Specialist Yes November 21 8:28am Documents on File Type Date Recorded Patient Clam Sorter Expl anation Advance Directive(s) 03/14/2021 10:51 AM Advance Directive Response Recorded Date/ Time Name of Medical Power of Healthcare Science Specialist Farida Beck November 21, 2022 9:28am Name of Medical Power of Healthcare Science Specialist FÉLIX February 24, 2023 9:59pm Name of Medical Power of Healthcare Science Specialist Farida Beck March 01, 2023 9:06pm Living Will Yes March 01, 2023 9:06pm Power of Healthcare Science Specialist Yes March 01 9:06pm Advance Directive Response Recorded Date/ Time Name of Medical Power of Healthcare Science Specialist FÉLIX February 24, 2023 9:59pm Name of Medical Power of Healthcare Science Specialist Farida Beck March 01, 2023 9:06pm Name of Medical Power of Healthcare Science Specialist Farida Beck March 31, 2023 12:26am Living Will Yes March 31, 2023 12:26am Power of Healthcare Science Specialist Yes March 31 12:26am Advance Directive Response Recorded Date/ Time Living Will Yes March 31, 2023 12:26am Power of Healthcare Science Specialist Yes March 31 12:26am Name of Medical Power of Healthcare Science Specialist Farida Beck March 31, 2023 12:26am Advance Directive Response Recorded Date/ Time Living Will Yes September 22 10:15am Power of Healthcare Science Specialist Yes September 22 024 10:15am Name of Medical Power of Healthcare Science Specialist Farida September 22, 2023 10:15am Advance Directive Response Recorded Date/ Time Living Will Yes June 24 1:50am Do you have a Healthcare Pow er of Healthcare Science Specialist? Yes June 24, 2024 1:50am Living Will No September 20 4:50pm Do you have a Healthcare Pow er of Healthcare Science Specialist? Yes September 20, 2024 4:50pm Name of Medical Power of Healthcare Science Specialist FARIDA BECK September 20, 2024 4:50pm Living Will Yes November 03 025 1:12am Do you have a Healthcare Pow er of Healthcare Science Specialist? Yes November 03, 2024 1:12am Name of Medical Power of Healthcare Science Specialist daughter November 03, 2024 1:12am Living Will Yes September 01 024 5:43am Do you have a Healthcare Pow er of Healthcare Science Specialist? Yes September 01, 2024 5:43am Name of Medical Power of Healthcare Science Specialist Paulovanessa gilliam er September 01, 2024 5:43am Advance Directive Response Recorded Date/ Time Living Will Yes September 22 11:15am Do you have a Healthcare Power of Healthcare Science Specialist? Yes September 22, 2023 11:15am Living Will Yes November 03 025 1:12am Do you have a Healthcare Power of Healthcare Science Specialist? Yes November 03, 2024 1:12am Name of Medical Power of Healthcare Science Specialist daughter November 03, 2024 1:12am Do you have a Healthcare Power of Healthcare Science Specialist? Yes January 19, 2025 11:33pm Advance Directive Response Recorded Date/ Time Living Will Yes September 22 11:15am Do you have a Healthcare Power of Healthcare Science Specialist? Yes September 22, 2023 11:15am Do you have a Healthcare Power of Healthcare Science Specialist? Yes January 19, 2025 11:33pm Advance Directive Response Recorded Date/ Time Do you have a Healthcare Power of Healthcare Science Specialist? Yes January 19, 2025 11:33pm Reason for Referral Specialty Diagnoses / Procedures Referred By Contac t Referred To Contact Orthopedics Diagnoses Strain of calf muscle, right, initial encounter Procedures CONSULT TO ORTHOPAEDICS OFFICE/OUTPATIENT [facility] 60-74 MINUTES Saad Park APRN.CNP [address] [place] [address] Referral ID Status Reason Start Date Expiration Date Visits Requested Visits Authorized [id number] Pending Review PCP Requested Referral 01/27/2022 01/27/2023 1 1 Specialty Diagnoses / Procedures Referred By Contac t Referred To Contact [facility] Diagnoses Gastrocnemius tear, right, initial encounter Procedures CONSULT TO PHYSICAL THERAPY PHYSICAL THERAPY EVALUATION HIGH COMPLEX 45 MINS Papito Castano V, DO [address] [place] [address] [facility] [place] [address] [place] [address] Referral ID Status Reason Start Date Expiration Date Visits Requested Visits Authorized [id number] Pending Review Auto-Generat ed Referral 02/03/2022 02/03/2023 1 1 Specialty Diagnoses / Procedures Referred By Contac t Referred To Contact General Surgery Diagnoses Skin mass Procedures CONSULT TO GENERAL SURGERY OFFICE/OUTPATIENT [facility] 60-74 MINUTES Mathieu Virgen MD [address] [place] [address] Referral ID Status Reason Start Date Expiration Date Visits Requested Visits Authorized [id number] Pending Review PCP Requested Referral 01/19/2023 01/19/2024 1 1 Specialty Diagnoses / Procedures Referred By Contac t Referred To Contact Urology Diagnoses Benign prostatic hyperplasia with lower urinary tract symptoms, symptom details unspecified Urinary retention Procedures CONSULT TO UROLOGY Mathieu Virgen MD [address] [place] [address] Referral ID Status Reason Start Date Expiration Date Visits Requested Visits Authorized [id number] Ref Not Required PCP Requested Referral 03/02/2023 03/01/2024 1 1 Specialty Diagnoses / Procedures Referred By Shara t Referred To Contact Ophthalmology Diagnoses Type 2 diabetes mellitus with microalbuminuria, with long-term current use of insulin (HCC) Procedures CONSULT TO OPHTHALMOLOGY OFFICE/OUTPATIENT [facility] 60-74 MINUTES Mathieu Virgen MD [address] [place] [address] Referral ID Status Reason Start Date Expiration Date Visits Requested Visits Authorized [id number] Pending Review PCP Requested Referral 06/06/2023 06/05/2024 1 1 Specialty Diagnoses / Procedures Referred By Shara t Referred To Contact [facility] Diagnoses Venous incompetence Lymphedema of left leg Varicose veins of both legs with edema Procedures CONSULT TO LYMPHEDEMA THERAPY OFFICE/OUTPATIENT [facility] [place] 60 MINUTES Osvaldo Travis PA-C [address] [place] [address] [facility] [place] [address] [place] [address] Referral ID Status Reason Start Date Expiration Date Visits Requested Visits Authorized [id number] Authorized Auto-Generat ed Referral 03/21/2024 03/21/2025 1 1 Chief Complaint and Reason for Visit Chief Complaint 3 M FU SOB SOB Shortness of breath SOB Shortness of breath 1 M FU 3 m fu E ORDER Reason for Visit Dyspnea on minimal e xertion Paroxysmal atrial fibrillation Essential (primary) hypertension Hyperlipidemia Morbid obesity SOB (shortness of breath) Morbid obesity SOB (shortness of breath) Essential (primary) hypertension Dyspnea on minimal exertion Paroxysmal atrial fibrillation Essential (primary) hypertension Hyperlipidemia Chief Complaint 3 m fu E ORDER 3 M FU chest pain Reason for Visit Dyspnea on minimal e xertion Paroxysmal atrial fibrillation Essential (primary) hypertension Hyperlipidemia Morbid obesity Restrictive airway disease Chief Complaint 3 M FU foreign body Reason for Visit Dyspnea on minimal e xertion Paroxysmal atrial fibrillation Essential (primary) hypertension Hyperlipidemia Chief Complaint foreign body 1 y fu chest pain CHEST PAIN CHEST PAIN AT REST CHEST PAIN Reason for Visit Essential (primary) hypertension Nonobstructive atherosclerosis of coronary artery Paroxysmal atrial fibrillation Chest pain Dyspnea on minimal exertion History of atrial fibrillation Chief Complaint chest pain CHEST PAIN CHEST PAIN AT REST CHEST PAIN HYPOGLYCEMIA 1 Y FU ABDOMINAL PAIN Reason for Visit History of atrial fi brillation Chest pain Dyspnea on minimal exertion Shortness of breath on exertion Chief Complaint HYPOGLYCEMIA 1 Y FU ABDOMINAL PAIN general illness Reason for Visit Shortness of breath on exertion Chief Complaint general illness RUL EXCISIONAL BX Chief Complaint RUL EXCISIONAL BX LESION REMOVAL cp Chief Complaint Admit Date 1 M FU August 13, 2024 12:50pm daytime hypersomnia, history of a fib De cember 2023 8:36pm chest pain September 01, 2024 4:37am 4-6 W FU September 03, 2024 3:17pm CHEST PAIN September 20, 2024 3: 45pm Ok with MMM: ER for CP 09/21September 23, 2024 3:25pm severe disease October 23, 2024 7 :54pm took too much insulin November 03 12:03am CJ November 10, 2024 11:03am Reason for Visit Admit Date Hypokalemia August 13, 2024 12:50pm Essential (primary) hypertension Novembe r 2023 12:50pm Nonobstructive atherosclerosis of ford ry artery August 13, 2024 12:50pm Paroxysmal atrial fibrillation August 13, 2024 12:50pm Hypokalemia September 03, 2024 3:17pm Essential (primary) hypertension Decembe r 2023 3:17pm Nonobstructive atherosclerosis of ford ry artery September 03, 2024 3:17pm Paroxysmal atrial fibrillation September 03, 2024 3:17pm Essential (primary) hypertension September 23, 2024 3:25pm Nonobstructive atherosclerosis of ford ry artery September 23, 2024 3:25pm Paroxysmal atrial fibrillation September 232024 3:25pm Chief Complaint Admit Date severe disease October 23, 2024 7 :54pm took too much insulin November 03 12:03am CJ November 10, 2024 11:03am 1 Y FU December 11, 2024 1:0 9pm CHEST PAIN January 19, 2025 10:42p m Pap compliance January 21, 2025 2:31pm S/P [facility] 01/20January 26, 2025 9:38a m Reason for Visit Admit Date Essential (primary) hypertension November 162024 1:09pm Nonobstructive atherosclerosis of ford ry artery December 11, 2024 1:09pm Paroxysmal atrial fibrillation November 1:09pm History of atrial fibrillation January 21, 2025 2:31pm Hypoxia January 21, 2025 2:31pm Obesity (BMI 30-39.9) January 21, 2025 2:31 pm Obstructive sleep apnea January 21, 2025 2: 31pm Shortness of breath on exertion January 21, 2025 2:31pm Essential (primary) hypertension January 9:38am Nonobstructive atherosclerosis of ford ry artery January 26, 2025 9:38am Paroxysmal atrial fibrillation January 26, 2025 9:38am Chief Complaint Admit Date severe disease October 23, 2024 7 :54pm took too much insulin November 03 12:03am CJ November 10, 2024 11:03am 1 Y FU December 11, 2024 1:0 9pm CHEST PAIN January 19, 2025 10:42p m Pap compliance January 21, 2025 2:31pm S/P [facility] 01/20January 26, 2025 9:38a m R06.02 - Shortness of breath January 30, 2 025 9:25am Chief Complaint Admit Date CJ November 10, 2024 11:03am 1 Y FU December 11, 2024 1:0 9pm CHEST PAIN January 19, 2025 10:42p m Pap compliance January 21, 2025 2:31pm S/P [facility] 01/20January 26, 2025 9:38a m R06.02 - Shortness of breath January 30, 2 025 9:25am R09.02 - Hypoxemia February 26, 2025 1:35 pm R09.02 - Hypoxemia March 02, 2025 10:1 5am Chief Complaint Admit Date 1 Y FU December 11, 2024 1:0 9pm CHEST PAIN January 19, 2025 10:42p m Pap compliance January 21, 2025 2:31pm S/P [facility] 01/20January 26, 2025 9:38a m R06.02 - Shortness of breath January 30, 2 025 9:25am R06.02 - Shortness of breath January 30 025 9:32am R09.02 - Hypoxemia February 26, 2025 1:35 pm R09.02 - Hypoxemia March 02, 2025 10:1 5am SOB April 01, 2025 3:40 pm Chief Complaint Admit Date 1 Y FU December 11, 2024 1:0 9pm CHEST PAIN January 19, 2025 10:42p m Pap compliance January 21, 2025 2:31pm S/P [facility] 01/20January 26, 2025 9:38a m R06.02 - Shortness of breath January 30, 025 9:25am R06.02 - Shortness of breath January 30, 025 9:32am R09.02 - Hypoxemia February 26, 2025 1:35 pm R09.02 - Hypoxemia March 02, 2025 10:1 5am SOB April 01, 2025 3:40 pm 3 M FU April 08, 2025 9:06 am Reason for Visit Admit Date Essential (primary) hypertension November 162024 1:09pm Nonobstructive atherosclerosis of ford ry artery December 11, 2024 1:09pm Paroxysmal atrial fibrillation November 1:09pm History of atrial fibrillation January 21, 2025 2:31pm Hypoxia January 21, 2025 2:31pm Obesity (BMI 30-39.9) January 21, 2025 2:31 pm Obstructive sleep apnea January 21, 2025 2: 31pm Shortness of breath on exertion January 21, 2025 2:31pm Essential (primary) hypertension January 9:38am Nonobstructive atherosclerosis of ford ry artery January 26, 2025 9:38am Paroxysmal atrial fibrillation January 26, 2025 9:38am History of atrial fibrillation March 9:06am Hypoxia April 08, 2025 9:06 am Obesity (BMI 30-39.9) April 08, 2025 9: 06am Obstructive sleep apnea April 08, 2025 9:06am Shortness of breath on exertion March 9:06am Chief Complaint Admit Date CHEST PAIN January 19, 2025 10:42p m Pap compliance January 21, 2025 2:31pm S/P [facility] 01/20January 26, 2025 9:38a m R06.02 - Shortness of breath January 30 025 9:25am R06.02 - Shortness of breath January 30 025 9:32am R09.02 - Hypoxemia February 26, 2025 1:35 pm R09.02 - Hypoxemia March 02, 2025 10:1 5am SOB April 01, 2025 3:40 pm 3 M FU April 08, 2025 9:06 am Reason for Visit Admit Date History of atrial fibrillation January 21, 2025 2:31pm Hypoxia January 21, 2025 2:31pm Obesity (BMI 30-39.9) January 21, 2025 2:31 pm Obstructive sleep apnea January 21, 2025 2: 31pm Shortness of breath on exertion January 21, 2025 2:31pm Essential (primary) hypertension January 9:38am Nonobstructive atherosclerosis of ford ry artery January 26, 2025 9:38am Paroxysmal atrial fibrillation January 26, 2025 9:38am Anemia April 08, 2025 9:06 am History of atrial fibrillation March 9:06am Hypoxia April 08, 2025 9:06 am Obesity (BMI 30-39.9) April 08, 2025 9: 06am Obstructive sleep apnea April 08, 2025 9:06am Restrictive lung disease April 08, 2025 9:06am Shortness of breath on exertion March 9:06am Family History No Family History Records Found Relationship Condition Age at Onset Recorded Date/T franca sister Malignant neoplasm of colon Unknown brother Diabetes mellitus Unknown mother Diabetes mellitus Unknown Cardiac disease Unknown Malignant neoplasm Unknown father Cardiac disease Unknown Diabetes mellitus Unknown Summary Purpose Additional Source Comments Source Comments (unrecognize d section and content) In the event this informatio n is protected by the Federal Confidentiality of Alcohol and Drug Abuse Patient Records regulations: The Federal rules restrict any use of the information to criminally investigate or prosecute any alcohol or drug abuse patient.[facility]In the event this information is protected by the Federal Confidentiality of Alcohol and Drug Abuse Patient Records regulations: The Federal rules restrict any use of the information to criminally investigate or prosecute any alcohol or drug abuse patient.[facility] HospitalIn the event this information is protected by the Federal Confidentiality of Alcohol and Drug Abuse Patient Records regulations: The Federal rules restrict any use of the information to criminally investigate or prosecute any alcohol or drug abuse patient.[facility] HospitalIn the event this information is protected by the Federal Confidentiality of Alcohol and Drug Abuse Patient Records regulations: The Federal rules restrict any use of the information to criminally investigate or prosecute any alcohol or drug abuse patient.[facility] HospitalIn the event this information is protected by the Federal Confidentiality of Alcohol and Drug Abuse Patient Records regulations: The Federal rules restrict any use of the information to criminally investigate or prosecute any alcohol or drug abuse patient.[facility] HospitalIn the event this information is protected by the Federal Confidentiality of Alcohol and Drug Abuse Patient Records regulations: The Federal rules restrict any use of the information to criminally investigate or prosecute any alcohol or drug abuse patient.[facility] HospitalIn the event this information is protected by the Federal Confidentiality of Alcohol and Drug Abuse Patient Records regulations: The Federal rules restrict any use of the information to criminally investigate or prosecute any alcohol or drug abuse patient.[facility] HospitalIn the event this information is protected by the Federal Confidentiality of Alcohol and Drug Abuse Patient Records regulations: The Federal rules restrict any use of the information to criminally investigate or prosecute any alcohol or drug abuse patient.[facility] HospitalIn the event this information is protected by the Federal Confidentiality of Alcohol and Drug Abuse Patient Records regulations: The Federal rules restrict any use of the information to criminally investigate or prosecute any alcohol or drug abuse patient.[facility] HospitalIn the event this information is protected by the Federal Confidentiality of Alcohol and Drug Abuse Patient Records regulations: The Federal rules restrict any use of the information to criminally investigate or prosecute any alcohol or drug abuse patient.[facility] HospitalIn the event this information is protected by the Federal Confidentiality of Alcohol and Drug Abuse Patient Records regulations: The Federal rules restrict any use of the information to criminally investigate or prosecute any alcohol or drug abuse patient.[facility] HospitalIn the event this information is protected by the Federal Confidentiality of Alcohol and Drug Abuse Patient Records regulations: The Federal rules restrict any use of the information to criminally investigate or prosecute any alcohol or drug abuse patient.[facility] HospitalIn the event this information is protected by the Federal Confidentiality of Alcohol and Drug Abuse Patient Records regulations: The Federal rules restrict any use of the information to criminally investigate or prosecute any alcohol or drug abuse patient.[facility] HospitalIn the event this information is protected by the Federal Confidentiality of Alcohol and Drug Abuse Patient Records regulations: The Federal rules restrict any use of the information to criminally investigate or prosecute any alcohol or drug abuse patient.[facility] HospitalIn the event this information is protected by the Federal Confidentiality of Alcohol and Drug Abuse Patient Records regulations: The Federal rules restrict any use of the information to criminally investigate or prosecute any alcohol or drug abuse patient.[facility] HospitalIn the event this information is protected by the Federal Confidentiality of Alcohol and Drug Abuse Patient Records regulations: The Federal rules restrict any use of the information to criminally investigate or prosecute any alcohol or drug abuse patient.[facility] HospitalIn the event this information is protected by the Federal Confidentiality of Alcohol and Drug Abuse Patient Records regulations: The Federal rules restrict any use of the information to criminally investigate or prosecute any alcohol or drug abuse patient.[facility] HospitalIn the event this information is protected by the Federal Confidentiality of Alcohol and Drug Abuse Patient Records regulations: The Federal rules restrict any use of the information to criminally investigate or prosecute any alcohol or drug abuse patient.[facility] HospitalIn the event this information is protected by the Federal Confidentiality of Alcohol and Drug Abuse Patient Records regulations: The Federal rules restrict any use of the information to criminally investigate or prosecute any alcohol or drug abuse patient.[facility] HospitalIn the event this information is protected by the Federal Confidentiality of Alcohol and Drug Abuse Patient Records regulations: The Federal rules restrict any use of the information to criminally investigate or prosecute any alcohol or drug abuse patient.[facility] HospitalIn the event this information is protected by the Federal Confidentiality of Alcohol and Drug Abuse Patient Records regulations: The Federal rules restrict any use of the information to criminally investigate or prosecute any alcohol or drug abuse patient.[facility] HospitalIn the event this information is protected by the Federal Confidentiality of Alcohol and Drug Abuse Patient Records regulations: The Federal rules restrict any use of the information to criminally investigate or prosecute any alcohol or drug abuse patient.[facility] HospitalIn the event this information is protected by the Federal Confidentiality of Alcohol and Drug Abuse Patient Records regulations: The Federal rules restrict any use of the information to criminally investigate or prosecute any alcohol or drug abuse patient.[facility] HospitalIn the event this information is protected by the Federal Confidentiality of Alcohol and Drug Abuse Patient Records regulations: The Federal rules restrict any use of the information to criminally investigate or prosecute any alcohol or drug abuse patient.[facility] HospitalIn the event this information is protected by the Federal Confidentiality of Alcohol and Drug Abuse Patient Records regulations: The Federal rules restrict any use of the information to criminally investigate or prosecute any alcohol or drug abuse patient.[facility] HospitalIn the event this information is protected by the Federal Confidentiality of Alcohol and Drug Abuse Patient Records regulations: The Federal rules restrict any use of the information to criminally investigate or prosecute any alcohol or drug abuse patient.[facility] HospitalIn the event this information is protected by the Federal Confidentiality of Alcohol and Drug Abuse Patient Records regulations: The Federal rules restrict any use of the information to criminally investigate or prosecute any alcohol or drug abuse patient.[facility] HospitalIn the event this information is protected by the Federal Confidentiality of Alcohol and Drug Abuse Patient Records regulations: The Federal rules restrict any use of the information to criminally investigate or prosecute any alcohol or drug abuse patient.[facility] HospitalIn the event this information is protected by the Federal Confidentiality of Alcohol and Drug Abuse Patient Records regulations: The Federal rules restrict any use of the information to criminally investigate or prosecute any alcohol or drug abuse patient.[facility] HospitalIn the event this information is protected by the Federal Confidentiality of Alcohol and Drug Abuse Patient Records regulations: The Federal rules restrict any use of the information to criminally investigate or prosecute any alcohol or drug abuse patient.[facility] HospitalIn the event this information is protected by the Federal Confidentiality of Alcohol and Drug Abuse Patient Records regulations: The Federal rules restrict any use of the information to criminally investigate or prosecute any alcohol or drug abuse patient.[facility] HospitalIn the event this information is protected by the Federal Confidentiality of Alcohol and Drug Abuse Patient Records regulations: The Federal rules restrict any use of the information to criminally investigate or prosecute any alcohol or drug abuse patient.[facility] HospitalIn the event this information is protected by the Federal Confidentiality of Alcohol and Drug Abuse Patient Records regulations: The Federal rules restrict any use of the information to criminally investigate or prosecute any alcohol or drug abuse patient.[facility] HospitalIn the event this information is protected by the Federal Confidentiality of Alcohol and Drug Abuse Patient Records regulations: The Federal rules restrict any use of the information to criminally investigate or prosecute any alcohol or drug abuse patient.[facility] HospitalIn the event this information is protected by the Federal Confidentiality of Alcohol and Drug Abuse Patient Records regulations: The Federal rules restrict any use of the information to criminally investigate or prosecute any alcohol or drug abuse patient.[facility] HospitalIn the event this information is protected by the Federal Confidentiality of Alcohol and Drug Abuse Patient Records regulations: The Federal rules restrict any use of the information to criminally investigate or prosecute any alcohol or drug abuse patient.[facility] HospitalIn the event this information is protected by the Federal Confidentiality of Alcohol and Drug Abuse Patient Records regulations: The Federal rules restrict any use of the information to criminally investigate or prosecute any alcohol or drug abuse patient.[facility] HospitalIn the event this information is protected by the Federal Confidentiality of Alcohol and Drug Abuse Patient Records regulations: The Federal rules restrict any use of the information to criminally investigate or prosecute any alcohol or drug abuse patient.[facility] HospitalIn the event this information is protected by the Federal Confidentiality of Alcohol and Drug Abuse Patient Records regulations: The Federal rules restrict any use of the information to criminally investigate or prosecute any alcohol or drug abuse patient.[facility] HospitalIn the event this information is protected by the Federal Confidentiality of Alcohol and Drug Abuse Patient Records regulations: The Federal rules restrict any use of the information to criminally investigate or prosecute any alcohol or drug abuse patient.[facility] HospitalIn the event this information is protected by the Federal Confidentiality of Alcohol and Drug Abuse Patient Records regulations: The Federal rules restrict any use of the information to criminally investigate or prosecute any alcohol or drug abuse patient.[facility] HospitalIn the event this information is protected by the Federal Confidentiality of Alcohol and Drug Abuse Patient Records regulations: The Federal rules restrict any use of the information to criminally investigate or prosecute any alcohol or drug abuse patient.[facility] HospitalIn the event this information is protected by the Federal Confidentiality of Alcohol and Drug Abuse Patient Records regulations: The Federal rules restrict any use of the information to criminally investigate or prosecute any alcohol or drug abuse patient.[facility] HospitalIn the event this information is protected by the Federal Confidentiality of Alcohol and Drug Abuse Patient Records regulations: The Federal rules restrict any use of the information to criminally investigate or prosecute any alcohol or drug abuse patient.[facility] HospitalIn the event this information is protected by the Federal Confidentiality of Alcohol and Drug Abuse Patient Records regulations: The Federal rules restrict any use of the information to criminally investigate or prosecute any alcohol or drug abuse patient.[facility] HospitalIn the event this information is protected by the Federal Confidentiality of Alcohol and Drug Abuse Patient Records regulations: The Federal rules restrict any use of the information to criminally investigate or prosecute any alcohol or drug abuse patient.[facility] HospitalIn the event this information is protected by the Federal Confidentiality of Alcohol and Drug Abuse Patient Records regulations: The Federal rules restrict any use of the information to criminally investigate or prosecute any alcohol or drug abuse patient.[facility] HospitalIn the event this information is protected by the Federal Confidentiality of Alcohol and Drug Abuse Patient Records regulations: The Federal rules restrict any use of the information to criminally investigate or prosecute any alcohol or drug abuse patient.[facility] HospitalIn the event this information is protected by the Federal Confidentiality of Alcohol and Drug Abuse Patient Records regulations: The Federal rules restrict any use of the information to criminally investigate or prosecute any alcohol or drug abuse patient.[facility] HospitalIn the event this information is protected by the Federal Confidentiality of Alcohol and Drug Abuse Patient Records regulations: The Federal rules restrict any use of the information to criminally investigate or prosecute any alcohol or drug abuse patient.[facility] HospitalIn the event this information is protected by the Federal Confidentiality of Alcohol and Drug Abuse Patient Records regulations: The Federal rules restrict any use of the information to criminally investigate or prosecute any alcohol or drug abuse patient.[facility] HospitalIn the event this information is protected by the Federal Confidentiality of Alcohol and Drug Abuse Patient Records regulations: The Federal rules restrict any use of the information to criminally investigate or prosecute any alcohol or drug abuse patient.[facility] HospitalIn the event this information is protected by the Federal Confidentiality of Alcohol and Drug Abuse Patient Records regulations: The Federal rules restrict any use of the information to criminally investigate or prosecute any alcohol or drug abuse patient.[facility] HospitalIn the event this information is protected by the Federal Confidentiality of Alcohol and Drug Abuse Patient Records regulations: The Federal rules restrict any use of the information to criminally investigate or prosecute any alcohol or drug abuse patient.[facility] HospitalIn the event this information is protected by the Federal Confidentiality of Alcohol and Drug Abuse Patient Records regulations: The Federal rules restrict any use of the information to criminally investigate or prosecute any alcohol or drug abuse patient.[facility] HospitalIn the event this information is protected by the Federal Confidentiality of Alcohol and Drug Abuse Patient Records regulations: The Federal rules restrict any use of the information to criminally investigate or prosecute any alcohol or drug abuse patient.[facility] HospitalIn the event this information is protected by the Federal Confidentiality of Alcohol and Drug Abuse Patient Records regulations: The Federal rules restrict any use of the information to criminally investigate or prosecute any alcohol or drug abuse patient.[facility] HospitalIn the event this information is protected by the Federal Confidentiality of Alcohol and Drug Abuse Patient Records regulations: The Federal rules restrict any use of the information to criminally investigate or prosecute any alcohol or drug abuse patient.[facility] HospitalIn the event this information is protected by the Federal Confidentiality of Alcohol and Drug Abuse Patient Records regulations: The Federal rules restrict any use of the information to criminally investigate or prosecute any alcohol or drug abuse patient.[facility] HospitalIn the event this information is protected by the Federal Confidentiality of Alcohol and Drug Abuse Patient Records regulations: The Federal rules restrict any use of the information to criminally investigate or prosecute any alcohol or drug abuse patient.[facility] HospitalIn the event this information is protected by the Federal Confidentiality of Alcohol and Drug Abuse Patient Records regulations: The Federal rules restrict any use of the information to criminally investigate or prosecute any alcohol or drug abuse patient.[facility] HospitalIn the event this information is protected by the Federal Confidentiality of Alcohol and Drug Abuse Patient Records regulations: The Federal rules restrict any use of the information to criminally investigate or prosecute any alcohol or drug abuse patient.[facility] HospitalIn the event this information is protected by the Federal Confidentiality of Alcohol and Drug Abuse Patient Records regulations: The Federal rules restrict any use of the information to criminally investigate or prosecute any alcohol or drug abuse patient.[facility] HospitalIn the event this information is protected by the Federal Confidentiality of Alcohol and Drug Abuse Patient Records regulations: The Federal rules restrict any use of the information to criminally investigate or prosecute any alcohol or drug abuse patient.[facility] HospitalIn the event this information is protected by the Federal Confidentiality of Alcohol and Drug Abuse Patient Records regulations: The Federal rules restrict any use of the information to criminally investigate or prosecute any alcohol or drug abuse patient.[facility] HospitalIn the event this information is protected by the Federal Confidentiality of Alcohol and Drug Abuse Patient Records regulations: The Federal rules restrict any use of the information to criminally investigate or prosecute any alcohol or drug abuse patient.[facility] HospitalIn the event this information is protected by the Federal Confidentiality of Alcohol and Drug Abuse Patient Records regulations: The Federal rules restrict any use of the information to criminally investigate or prosecute any alcohol or drug abuse patient.[facility] HospitalIn the event this information is protected by the Federal Confidentiality of Alcohol and Drug Abuse Patient Records regulations: The Federal rules restrict any use of the information to criminally investigate or prosecute any alcohol or drug abuse patient.[facility] HospitalIn the event this information is protected by the Federal Confidentiality of Alcohol and Drug Abuse Patient Records regulations: The Federal rules restrict any use of the information to criminally investigate or prosecute any alcohol or drug abuse patient.[facility] HospitalIn the event this information is protected by the Federal Confidentiality of Alcohol and Drug Abuse Patient Records regulations: The Federal rules restrict any use of the information to criminally investigate or prosecute any alcohol or drug abuse patient.[facility] HospitalIn the event this information is protected by the Federal Confidentiality of Alcohol and Drug Abuse Patient Records regulations: The Federal rules restrict any use of the information to criminally investigate or prosecute any alcohol or drug abuse patient.[facility] HospitalIn the event this information is protected by the Federal Confidentiality of Alcohol and Drug Abuse Patient Records regulations: The Federal rules restrict any use of the information to criminally investigate or prosecute any alcohol or drug abuse patient.[facility] HospitalIn the event this information is protected by the Federal Confidentiality of Alcohol and Drug Abuse Patient Records regulations: The Federal rules restrict any use of the information to criminally investigate or prosecute any alcohol or drug abuse patient.[facility] HospitalIn the event this information is protected by the Federal Confidentiality of Alcohol and Drug Abuse Patient Records regulations: The Federal rules restrict any use of the information to criminally investigate or prosecute any alcohol or drug abuse patient.[facility] HospitalIn the event this information is protected by the Federal Confidentiality of Alcohol and Drug Abuse Patient Records regulations: The Federal rules restrict any use of the information to criminally investigate or prosecute any alcohol or drug abuse patient.[facility] HospitalIn the event this information is protected by the Federal Confidentiality of Alcohol and Drug Abuse Patient Records regulations: The Federal rules restrict any use of the information to criminally investigate or prosecute any alcohol or drug abuse patient.[facility] HospitalIn the event this information is protected by the Federal Confidentiality of Alcohol and Drug Abuse Patient Records regulations: The Federal rules restrict any use of the information to criminally investigate or prosecute any alcohol or drug abuse patient.[facility] HospitalIn the event this information is protected by the Federal Confidentiality of Alcohol and Drug Abuse Patient Records regulations: The Federal rules restrict any use of the information to criminally investigate or prosecute any alcohol or drug abuse patient.[facility] HospitalIn the event this information is protected by the Federal Confidentiality of Alcohol and Drug Abuse Patient Records regulations: The Federal rules restrict any use of the information to criminally investigate or prosecute any alcohol or drug abuse patient.[facility] HospitalIn the event this information is protected by the Federal Confidentiality of Alcohol and Drug Abuse Patient Records regulations: The Federal rules restrict any use of the information to criminally investigate or prosecute any alcohol or drug abuse patient.[facility] HospitalIn the event this information is protected by the Federal Confidentiality of Alcohol and Drug Abuse Patient Records regulations: The Federal rules restrict any use of the information to criminally investigate or prosecute any alcohol or drug abuse patient.[facility] HospitalIn the event this information is protected by the Federal Confidentiality of Alcohol and Drug Abuse Patient Records regulations: The Federal rules restrict any use of the information to criminally investigate or prosecute any alcohol or drug abuse patient.[facility] HospitalIn the event this information is protected by the Federal Confidentiality of Alcohol and Drug Abuse Patient Records regulations: The Federal rules restrict any use of the information to criminally investigate or prosecute any alcohol or drug abuse patient.[facility] HospitalIn the event this information is protected by the Federal Confidentiality of Alcohol and Drug Abuse Patient Records regulations: The Federal rules restrict any use of the information to criminally investigate or prosecute any alcohol or drug abuse patient.[facility] HospitalIn the event this information is protected by the Federal Confidentiality of Alcohol and Drug Abuse Patient Records regulations: The Federal rules restrict any use of the information to criminally investigate or prosecute any alcohol or drug abuse patient.[facility] HospitalIn the event this information is protected by the Federal Confidentiality of Alcohol and Drug Abuse Patient Records regulations: The Federal rules restrict any use of the information to criminally investigate or prosecute any alcohol or drug abuse patient.[facility] HospitalIn the event this information is protected by the Federal Confidentiality of Alcohol and Drug Abuse Patient Records regulations: The Federal rules restrict any use of the information to criminally investigate or prosecute any alcohol or drug abuse patient.[facility] HospitalIn the event this information is protected by the Federal Confidentiality of Alcohol and Drug Abuse Patient Records regulations: The Federal rules restrict any use of the information to criminally investigate or prosecute any alcohol or drug abuse patient.[facility] HospitalIn the event this information is protected by the Federal Confidentiality of Alcohol and Drug Abuse Patient Records regulations: The Federal rules restrict any use of the information to criminally investigate or prosecute any alcohol or drug abuse patient.[facility] HospitalIn the event this information is protected by the Federal Confidentiality of Alcohol and Drug Abuse Patient Records regulations: The Federal rules restrict any use of the information to criminally investigate or prosecute any alcohol or drug abuse patient.[facility] HospitalIn the event this information is protected by the Federal Confidentiality of Alcohol and Drug Abuse Patient Records regulations: The Federal rules restrict any use of the information to criminally investigate or prosecute any alcohol or drug abuse patient.[facility] HospitalIn the event this information is protected by the Federal Confidentiality of Alcohol and Drug Abuse Patient Records regulations: The Federal rules restrict any use of the information to criminally investigate or prosecute any alcohol or drug abuse patient.[facility] HospitalIn the event this information is protected by the Federal Confidentiality of Alcohol and Drug Abuse Patient Records regulations: The Federal rules restrict any use of the information to criminally investigate or prosecute any alcohol or drug abuse patient.[facility] HospitalIn the event this information is protected by the Federal Confidentiality of Alcohol and Drug Abuse Patient Records regulations: The Federal rules restrict any use of the information to criminally investigate or prosecute any alcohol or drug abuse patient.[facility] HospitalIn the event this information is protected by the Federal Confidentiality of Alcohol and Drug Abuse Patient Records regulations: The Federal rules restrict any use of the information to criminally investigate or prosecute any alcohol or drug abuse patient.[facility] HospitalIn the event this information is protected by the Federal Confidentiality of Alcohol and Drug Abuse Patient Records regulations: The Federal rules restrict any use of the information to criminally investigate or prosecute any alcohol or drug abuse patient.[facility] HospitalIn the event this information is protected by the Federal Confidentiality of Alcohol and Drug Abuse Patient Records regulations: The Federal rules restrict any use of the information to criminally investigate or prosecute any alcohol or drug abuse patient.[facility] HospitalIn the event this information is protected by the Federal Confidentiality of Alcohol and Drug Abuse Patient Records regulations: The Federal rules restrict any use of the information to criminally investigate or prosecute any alcohol or drug abuse patient.[facility] HospitalIn the event this information is protected by the Federal Confidentiality of Alcohol and Drug Abuse Patient Records regulations: The Federal rules restrict any use of the information to criminally investigate or prosecute any alcohol or drug abuse patient.[facility] HospitalIn the event this information is protected by the Federal Confidentiality of Alcohol and Drug Abuse Patient Records regulations: The Federal rules restrict any use of the information to criminally investigate or prosecute any alcohol or drug abuse patient.[facility] HospitalIn the event this information is protected by the Federal Confidentiality of Alcohol and Drug Abuse Patient Records regulations: The Federal rules restrict any use of the information to criminally investigate or prosecute any alcohol or drug abuse patient.[facility] HospitalIn the event this information is protected by the Federal Confidentiality of Alcohol and Drug Abuse Patient Records regulations: The Federal rules restrict any use of the information to criminally investigate or prosecute any alcohol or drug abuse patient.[facility] HospitalIn the event this information is protected by the Federal Confidentiality of Alcohol and Drug Abuse Patient Records regulations: The Federal rules restrict any use of the information to criminally investigate or prosecute any alcohol or drug abuse patient.[facility] HospitalIn the event this information is protected by the Federal Confidentiality of Alcohol and Drug Abuse Patient Records regulations: The Federal rules restrict any use of the information to criminally investigate or prosecute any alcohol or drug abuse patient.[facility] HospitalIn the event this information is protected by the Federal Confidentiality of Alcohol and Drug Abuse Patient Records regulations: The Federal rules restrict any use of the information to criminally investigate or prosecute any alcohol or drug abuse patient.[facility] HospitalIn the event this information is protected by the Federal Confidentiality of Alcohol and Drug Abuse Patient Records regulations: The Federal rules restrict any use of the information to criminally investigate or prosecute any alcohol or drug abuse patient.[facility] HospitalIn the event this information is protected by the Federal Confidentiality of Alcohol and Drug Abuse Patient Records regulations: The Federal rules restrict any use of the information to criminally investigate or prosecute any alcohol or drug abuse patient.[facility] HospitalIn the event this information is protected by the Federal Confidentiality of Alcohol and Drug Abuse Patient Records regulations: The Federal rules restrict any use of the information to criminally investigate or prosecute any alcohol or drug abuse patient.[facility] HospitalIn the event this information is protected by the Federal Confidentiality of Alcohol and Drug Abuse Patient Records regulations: The Federal rules restrict any use of the information to criminally investigate or prosecute any alcohol or drug abuse patient.[facility] HospitalIn the event this information is protected by the Federal Confidentiality of Alcohol and Drug Abuse Patient Records regulations: The Federal rules restrict any use of the information to criminally investigate or prosecute any alcohol or drug abuse patient.[facility] HospitalIn the event this information is protected by the Federal Confidentiality of Alcohol and Drug Abuse Patient Records regulations: The Federal rules restrict any use of the information to criminally investigate or prosecute any alcohol or drug abuse patient.[facility] HospitalIn the event this information is protected by the Federal Confidentiality of Alcohol and Drug Abuse Patient Records regulations: The Federal rules restrict any use of the information to criminally investigate or prosecute any alcohol or drug abuse patient.[facility] HospitalIn the event this information is protected by the Federal Confidentiality of Alcohol and Drug Abuse Patient Records regulations: The Federal rules restrict any use of the information to criminally investigate or prosecute any alcohol or drug abuse patient.[facility] HospitalIn the event this information is protected by the Federal Confidentiality of Alcohol and Drug Abuse Patient Records regulations: The Federal rules restrict any use of the information to criminally investigate or prosecute any alcohol or drug abuse patient.[facility] HospitalIn the event this information is protected by the Federal Confidentiality of Alcohol and Drug Abuse Patient Records regulations: The Federal rules restrict any use of the information to criminally investigate or prosecute any alcohol or drug abuse patient.[facility] HospitalIn the event this information is protected by the Federal Confidentiality of Alcohol and Drug Abuse Patient Records regulations: The Federal rules restrict any use of the information to criminally investigate or prosecute any alcohol or drug abuse patient.[facility] HospitalIn the event this information is protected by the Federal Confidentiality of Alcohol and Drug Abuse Patient Records regulations: The Federal rules restrict any use of the information to criminally investigate or prosecute any alcohol or drug abuse patient.[facility] HospitalIn the event this information is protected by the Federal Confidentiality of Alcohol and Drug Abuse Patient Records regulations: The Federal rules restrict any use of the information to criminally investigate or prosecute any alcohol or drug abuse patient.[facility] HospitalIn the event this information is protected by the Federal Confidentiality of Alcohol and Drug Abuse Patient Records regulations: The Federal rules restrict any use of the information to criminally investigate or prosecute any alcohol or drug abuse patient.[facility] HospitalIn the event this information is protected by the Federal Confidentiality of Alcohol and Drug Abuse Patient Records regulations: The Federal rules restrict any use of the information to criminally investigate or prosecute any alcohol or drug abuse patient.[facility] HospitalIn the event this information is protected by the Federal Confidentiality of Alcohol and Drug Abuse Patient Records regulations: The Federal rules restrict any use of the information to criminally investigate or prosecute any alcohol or drug abuse patient.[facility] HospitalIn the event this information is protected by the Federal Confidentiality of Alcohol and Drug Abuse Patient Records regulations: The Federal rules restrict any use of the information to criminally investigate or prosecute any alcohol or drug abuse patient.[facility] HospitalIn the event this information is protected by the Federal Confidentiality of Alcohol and Drug Abuse Patient Records regulations: The Federal rules restrict any use of the information to criminally investigate or prosecute any alcohol or drug abuse patient.[facility] HospitalIn the event this information is protected by the Federal Confidentiality of Alcohol and Drug Abuse Patient Records regulations: The Federal rules restrict any use of the information to criminally investigate or prosecute any alcohol or drug abuse patient.[facility] HospitalIn the event this information is protected by the Federal Confidentiality of Alcohol and Drug Abuse Patient Records regulations: The Federal rules restrict any use of the information to criminally investigate or prosecute any alcohol or drug abuse patient.[facility] HospitalIn the event this information is protected by the Federal Confidentiality of Alcohol and Drug Abuse Patient Records regulations: The Federal rules restrict any use of the information to criminally investigate or prosecute any alcohol or drug abuse patient.[facility] HospitalIn the event this information is protected by the Federal Confidentiality of Alcohol and Drug Abuse Patient Records regulations: The Federal rules restrict any use of the information to criminally investigate or prosecute any alcohol or drug abuse patient.[facility] HospitalIn the event this information is protected by the Federal Confidentiality of Alcohol and Drug Abuse Patient Records regulations: The Federal rules restrict any use of the information to criminally investigate or prosecute any alcohol or drug abuse patient.[facility] HospitalIn the event this information is protected by the Federal Confidentiality of Alcohol and Drug Abuse Patient Records regulations: The Federal rules restrict any use of the information to criminally investigate or prosecute any alcohol or drug abuse patient.[facility] HospitalIn the event this information is protected by the Federal Confidentiality of Alcohol and Drug Abuse Patient Records regulations: The Federal rules restrict any use of the information to criminally investigate or prosecute any alcohol or drug abuse patient.[facility] HospitalIn the event this information is protected by the Federal Confidentiality of Alcohol and Drug Abuse Patient Records regulations: The Federal rules restrict any use of the information to criminally investigate or prosecute any alcohol or drug abuse patient.[facility] HospitalIn the event this information is protected by the Federal Confidentiality of Alcohol and Drug Abuse Patient Records regulations: The Federal rules restrict any use of the information to criminally investigate or prosecute any alcohol or drug abuse patient.[facility] HospitalIn the event this information is protected by the Federal Confidentiality of Alcohol and Drug Abuse Patient Records regulations: The Federal rules restrict any use of the information to criminally investigate or prosecute any alcohol or drug abuse patient.[facility] HospitalIn the event this information is protected by the Federal Confidentiality of Alcohol and Drug Abuse Patient Records regulations: The Federal rules restrict any use of the information to criminally investigate or prosecute any alcohol or drug abuse patient.[facility] HospitalIn the event this information is protected by the Federal Confidentiality of Alcohol and Drug Abuse Patient Records regulations: The Federal rules restrict any use of the information to criminally investigate or prosecute any alcohol or drug abuse patient.[facility] HospitalIn the event this information is protected by the Federal Confidentiality of Alcohol and Drug Abuse Patient Records regulations: The Federal rules restrict any use of the information to criminally investigate or prosecute any alcohol or drug abuse patient.[facility] HospitalIn the event this information is protected by the Federal Confidentiality of Alcohol and Drug Abuse Patient Records regulations: The Federal rules restrict any use of the information to criminally investigate or prosecute any alcohol or drug abuse patient.[facility] HospitalIn the event this information is protected by the Federal Confidentiality of Alcohol and Drug Abuse Patient Records regulations: The Federal rules restrict any use of the information to criminally investigate or prosecute any alcohol or drug abuse patient.[facility] HospitalIn the event this information is protected by the Federal Confidentiality of Alcohol and Drug Abuse Patient Records regulations: The Federal rules restrict any use of the information to criminally investigate or prosecute any alcohol or drug abuse patient.[facility] HospitalIn the event this information is protected by the Federal Confidentiality of Alcohol and Drug Abuse Patient Records regulations: The Federal rules restrict any use of the information to criminally investigate or prosecute any alcohol or drug abuse patient.[facility] HospitalIn the event this information is protected by the Federal Confidentiality of Alcohol and Drug Abuse Patient Records regulations: The Federal rules restrict any use of the information to criminally investigate or prosecute any alcohol or drug abuse patient.[facility] HospitalIn the event this information is protected by the Federal Confidentiality of Alcohol and Drug Abuse Patient Records regulations: The Federal rules restrict any use of the information to criminally investigate or prosecute any alcohol or drug abuse patient.[facility] HospitalIn the event this information is protected by the Federal Confidentiality of Alcohol and Drug Abuse Patient Records regulations: The Federal rules restrict any use of the information to criminally investigate or prosecute any alcohol or drug abuse patient.[facility] HospitalIn the event this information is protected by the Federal Confidentiality of Alcohol and Drug Abuse Patient Records regulations: The Federal rules restrict any use of the information to criminally investigate or prosecute any alcohol or drug abuse patient.[facility] HospitalIn the event this information is protected by the Federal Confidentiality of Alcohol and Drug Abuse Patient Records regulations: The Federal rules restrict any use of the information to criminally investigate or prosecute any alcohol or drug abuse patient.[facility] HospitalIn the event this information is protected by the Federal Confidentiality of Alcohol and Drug Abuse Patient Records regulations: The Federal rules restrict any use of the information to criminally investigate or prosecute any alcohol or drug abuse patient.[facility] HospitalIn the event this information is protected by the Federal Confidentiality of Alcohol and Drug Abuse Patient Records regulations: The Federal rules restrict any use of the information to criminally investigate or prosecute any alcohol or drug abuse patient.[facility] HospitalIn the event this information is protected by the Federal Confidentiality of Alcohol and Drug Abuse Patient Records regulations: The Federal rules restrict any use of the information to criminally investigate or prosecute any alcohol or drug abuse patient.[facility] HospitalIn the event this information is protected by the Federal Confidentiality of Alcohol and Drug Abuse Patient Records regulations: The Federal rules restrict any use of the information to criminally investigate or prosecute any alcohol or drug abuse patient.[facility] HospitalIn the event this information is protected by the Federal Confidentiality of Alcohol and Drug Abuse Patient Records regulations: The Federal rules restrict any use of the information to criminally investigate or prosecute any alcohol or drug abuse patient.[facility] HospitalIn the event this information is protected by the Federal Confidentiality of Alcohol and Drug Abuse Patient Records regulations: The Federal rules restrict any use of the information to criminally investigate or prosecute any alcohol or drug abuse patient.[facility] HospitalIn the event this information is protected by the Federal Confidentiality of Alcohol and Drug Abuse Patient Records regulations: The Federal rules restrict any use of the information to criminally investigate or prosecute any alcohol or drug abuse patient.[facility] HospitalIn the event this information is protected by the Federal Confidentiality of Alcohol and Drug Abuse Patient Records regulations: The Federal rules restrict any use of the information to criminally investigate or prosecute any alcohol or drug abuse patient.[facility] HospitalIn the event this information is protected by the Federal Confidentiality of Alcohol and Drug Abuse Patient Records regulations: The Federal rules restrict any use of the information to criminally investigate or prosecute any alcohol or drug abuse patient.[facility] HospitalIn the event this information is protected by the Federal Confidentiality of Alcohol and Drug Abuse Patient Records regulations: The Federal rules restrict any use of the information to criminally investigate or prosecute any alcohol or drug abuse patient.[facility] HospitalIn the event this information is protected by the Federal Confidentiality of Alcohol and Drug Abuse Patient Records regulations: The Federal rules restrict any use of the information to criminally investigate or prosecute any alcohol or drug abuse patient.[facility] Reason for Visit (unrecogniz ed section and content) Reason Onset Date Comments Refill Request 12/12/2021 Reason Comments Forms [employer] PAP Reason Comments Medication Problem Reason Onset Date Comments Refill Request 12/29/2021 Reason Comments Diabetes Reason Onset Date Comments Refill Request 01/12/2022 Reason Comments right calf pain x 2 hours-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 Reason 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 Refills Reason Onset Date Comments Refill Request 02/01/2022 patient assistan ce Reason Onset Date Comments Refill Request 02/02/2022 Reason Comments New Patient Right calf muscle st rain REF: [place] Reason Comments Patient Request Reason Comments indigent med Reason Comments Follow Up 3 month follow up di abetes Reason Comments Forms [facility] applicat ion Reason Comments Medication Question [...] Date Comments Refill Request 08/21/2022 Reason Comments [facility] Forms for Insulin Reason Onset Date Comments Refill Request 10/03/2022 Reason Onset Date Comments Refill Request 11/10/2022 Reason Onset Date Comments Transition Of Care 11/22/2022 [facility] 3/7-3 d x: chest pain Reason Comments Orders [...] walker is helpful. Reason Comments Patient Assistance [facility] (Basagla r and Humalog) Reason Onset Date [...] Specialty Diagnoses / Procedures Referred By Shara russo Referred To Contact Diagnoses CJ (obstructive sleep apnea) Hypersomnolence Procedures CONSULT TO SLEEP MEDICINE - ADULT OFFICE/OUTPATIENT [facility] [place] 60 MINUTES Osvaldo Travis PA-C [address], [place] [id number] Referral ID Status Reason Start Date Expiration Date V isits Requested Visits Authorized [id number] Closed PCP Requested Referral 02/28/2024 02/27/2025 1 1 Reason Onset Date Comments Refill Request 07/09/2024 Reason Onset Date Comments Refill Request 08/01/2024 Reason Comments Oxygen Order Request Reason Comments Patient Update Reason Onset Date Comments Refill Request 08/15/2024 Reason Comments CGM Order Reason Onset Date Comments Refill Request 08/22/2024 Reason Comments Constipation Reason Comments Patient Update Appointment Reason Comments ER F/U [facility] ER 09/20/24 dx:CP Reason Onset Date Comments Refill Request 10/08/2024 Reason Comments Dexcom G7 sensors / issue Reason Comments F/U 3 Month Reason Comments Appointment Reason Onset Date Comments requesting medication that is 11/24/2024 Reason Comments Insurance Authorization Reason Comments Pain (foot) Left foot. Red and s wollen. Has been that way for awhile. Has really improved from what it was. Recalls no injury. Reason Onset Date Comments Refill Request 01/13/2025 Reason Comments Results Reason Comments New Pain Swelling Fracture Specialty Diagnoses / Procedures Referred By Shara russo Referred To Contact Podiatry Diagnoses Closed fracture of foot, unspecified laterality, initial encounter Procedures CONSULT TO PODIATRY OFFICE/OUTPATIENT [facility] [place] 60 MINUTES Mathieu Virgen MD [address] [place] [address] Phone: tel: fax: Referral ID Status Reason Start Date Expiration Date V isits Requested Visits Authorized [id number] Closed PCP Requested Referral 01/12/2025 01/12/2026 1 1 Reason Comments Diabetes A1C right now is 6.8 according to his marielle Reason Comments FYI-No Action Needed Diabetes note sent to DME Reason Onset Date Comments Refill Request 03/27/2025 refill status 03/27/2025 Reason Comments Patient Assistance [facility] form for [facility] Care Teams (unrecognized sec tion and content) 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 Specialty Start Date End Date Mathieu Virgen MD [address] [place] [address] PCP - General Family Practice 01/10/18 Asad Rothman, [facility] [address] [place] [address] Pharmacist Pharmacy 05/24/20 [facility] [address] [place] [address] Pharmacist Pharmacy 03/31/21 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 Specialty Start Date End Date Mathieu Virgen MD [address] [place] [address] PCP - General Family Practice 01/10/18 Asad Rothman, [facility] [address] [place] [address] Pharmacist Pharmacy 05/24/20 Kaitlyn Hernández, [facility] [address] [place] [address] Pharmacist Pharmacy 03/31/21 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 Specialty Start Date End Date Mathieu Virgen MD [address] [place] [address] PCP - General Family Practice 01/10/18 Asad Rothman, [facility] [address] [place] [address] Pharmacist Pharmacy 05/24/20 Kaitlyn Hernández, [facility] [address] [place] [address] Pharmacist Pharmacy 03/31/21 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 Specialty Start Date End Date Mathieu Virgen MD [address] [place] [address] PCP - General Family Practice 01/10/18 Asad Rothman, [facility] [address] [place] [address] Pharmacist Pharmacy 05/24/20 Kaitlyn Hernández [facility] [address] [place] [address] Pharmacist Pharmacy 03/31/21 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 Specialty Start Date End Date Mathieu Virgen MD [address] [place] [address] PCP - General Family Practice 01/10/18 Asad Rothman [facility] [address] [place] [address] Pharmacist Pharmacy 05/24/20 Kaitlyn Hernández, [facility] [address] [place] [address] Pharmacist Pharmacy 03/31/21 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 Specialty Start Date End Date Mathieu Virgen MD [address] [place] [address] PCP - General Family Practice 01/10/18 Asad Rothman, [facility] [address] [place] [address] Pharmacist Pharmacy 05/24/20 Kaitlyn Hernández, [facility] [address] [place] [address] Pharmacist Pharmacy 03/31/21 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 Specialty Start Date End Date Mathieu Virgen MD [address] [place] [address] PCP - General Family Practice 01/10/18 Asad Rothman, [facility] [address] [place] [address] Pharmacist Pharmacy 05/24/20 Kaitlyn Hernández, [facility] [address] [place] [address] Pharmacist Pharmacy 03/31/21 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 Specialty Start Date End Date Mathieu Virgen MD [address] [place] [address] PCP - General Family Practice 01/10/18 [facility] [address] [place] [address] Pharmacist Pharmacy 05/24/20 [facility] [address] [place] [address] Pharmacist Pharmacy 03/31/21 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 Specialty Start Date End Date Mathieu Virgen MD [address] [place] [address] PCP - General Family Practice 01/10/18 [facility] [address] [place] [address] Pharmacist Pharmacy 05/24/20 [facility]iatlyn [facility] [address] [place] [address] Pharmacist Pharmacy 03/31/21 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 Specialty Start Date End Date Mathieu Virgen MD [address] [place] [address] PCP - General Family Practice 01/10/18 Asad Rothman, [facility] [address] [place] [address] Pharmacist Pharmacy 05/24/20 Kaitlyn Hernández, [facility] [address] [place] [address] Pharmacist Pharmacy 03/31/21 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 Specialty Start Date End Date Mathieu Virgen MD [address] [place] [address] PCP - General Family Practice 01/10/18 [facility] [address] [place] [address] Pharmacist Pharmacy 05/24/20 [facility] [address] [place] [address] Pharmacist Pharmacy 03/31/21 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 Specialty Start Date End Date Mathieu Virgen MD [address] [place] [address] PCP - General Family Practice 01/10/18 Asad Rothman, [facility] [address] [place] [address] Pharmacist Pharmacy 05/24/20 [facility] [address] [place] [address] Pharmacist Pharmacy 03/31/21 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 Specialty Start Date End Date Mathieu Virgen MD [address] [place] [address] PCP - General Family Practice 01/10/18 [facility] [address] [place] [address] Pharmacist Pharmacy 05/24/20 Kaitlyn Hernández, [facility] [address] [place] [address] Pharmacist Pharmacy 03/31/21 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 Specialty Start Date End Date Mathieu Virgen MD [address] [place] [address] PCP - General Family Practice 01/10/18 Asad Rothman, [facility] [address] [place] [address] Pharmacist Pharmacy 05/24/20 Edgar, Kaitlyn, [facility] [address] [place] [address] Pharmacist Pharmacy 03/31/21 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 Specialty Start Date End Date Mathieu Virgen MD [address] [place] [address] PCP - General Family Medicine 01/10/18 [facility] [address] [place] [address] Pharmacist Pharmacy 05/24/20 [facility] [address] [place] [address] Pharmacist Pharmacy 03/31/21 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 Specialty Start Date End Date Mathieu Virgen MD [address] [place] [address] PCP - General Family Medicine 01/10/18 Asad Rothman, [facility] [address] [place] [address] Pharmacist Pharmacy 05/24/20 Kaitlyn Hernández, [facility] [address] [place] [address] Pharmacist Pharmacy 03/31/21 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 Specialty Start Date End Date Mathieu Virgen MD [address] [place] [address] PCP - General Family Medicine 01/10/18 Asad Rothman, [facility] [address] [place] [address] Pharmacist Pharmacy 05/24/20 [facility] [address] [place] [address] Pharmacist Pharmacy 03/31/21 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 Specialty Start Date End Date Mathieu Virgen MD [address] [place] [address] PCP - General Family Medicine 01/10/18 [facility] [address] [place] [address] Pharmacist Pharmacy 05/24/20 [facility] [address] [place] [address] Pharmacist Pharmacy 03/31/21 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 Specialty Start Date End Date Mathieu Virgen MD [address] [place] [address] PCP - General Family Medicine 01/10/18 [facility] [address] [place] [address] Pharmacist Pharmacy 05/24/20 [facility] [address] [place] [address] Pharmacist Pharmacy 03/31/21 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 Specialty Start Date End Date Mathieu Virgen MD [address] [place] [address] PCP - General Family Medicine 01/10/18 [facility] [address] [place] [address] Pharmacist Pharmacy 05/24/20 Kaitlyn Hernández, [facility] [address] [place] [address] Pharmacist Pharmacy 03/31/21 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 Mathieu Virgen MD Family Provider Active Dr. Mathieu Virgen MD Primary Care Provider Active Team Status: Inactive Member Role Status Dates Dr. Mathieu Virgen MD Primary Care Provider, Referring Provider Active Dr. Devante Ponce MD Attending Provider Active Team Status: Active Member Role Status Dates Dr. Mathieu Virgen MD Primary Care Provider Active Dr. Kodi Taylor MD Emergency Provider Active Dr. Mariza Stevenson MD Admit Provider, Attending Provider, Other Provider Active Team Status: Active Member Role Status Dates Dr. Mathieu Virgen MD Primary Care Provider Active Dr. Kodi Taylor MD Emergency Provider Active Dr. Mariza Stevenson MD Admit Provider, Other Provider Active Dr. Narda Kebede MD Other Provider Active Dr. Robert Mcpherson MD Attending Provider Active Team Status: Inactive Member Role Status Dates Dr. Mathieu Virgen MD Primary Care Provider Active Dr. Fito Villalobos DO Attending Provider, Emergency P teresa Active Team Status: Inactive Member Role Status Dates Dr. Mathieu Virgen MD Primary Care Provider Active Dr. Kodi Taylor MD Emergency Provider Active Team Status: Inactive Member Role Status Dates Dr. Mathieu Virgen MD Primary Care Provider Active Dr. Kodi Taylor MD Emergency Provider Active Dr. Mariza Stevenson MD Admit Provider, Other Provider Active Dr. 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 Specialty Start Date End Date Mathieu Virgen MD [address] [place] [address] PCP - General Family Medicine 01/10/18 [facility] [address] [place] [address] Pharmacist Pharmacy 05/24/20 [place], [facility] [address] [place] [address] Pharmacist Pharmacy 03/31/21 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 Specialty Start Date End Date Mathieu Virgen MD [address] [place] [address] PCP - General Family Medicine 01/10/18 [facility] [address] [place] [address] Pharmacist Pharmacy 05/24/20 [facility]lyn [facility] [address] [place] [address] Pharmacist Pharmacy 03/31/21 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 Specialty Start Date End Date Mathieu Virgen MD [address] [place] [address] PCP - General Family Medicine 01/10/18 Asad Rothman, [facility] [address] [place] [address] Pharmacist Pharmacy 05/24/20 GenevaJaqueline byrneily, [facility] [address] [place] [address] Pharmacist Pharmacy 03/31/21 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 Mathieu Virgen MD Primary Care Provider, Referring Provider Active Halle Pina WOOD POLE TREATER, WOOD POLE TREATER-C Attending Provider Active Team Status: Active Member Role Status Dates Dr. Mathieu Virgen MD Primary Care Provider Active Dr. Kodi Taylor MD Emergency Provider Active Dr. Mariza Stevenson MD Admit Provider, Other Provider Active Dr. Narda Kebede MD Other Provider Active Dr. Robert Mcpherson MD Attending Provider, Referring Provider Active Team Status: Inactive Member Role Status Dates Dr. Mathieu Virgen MD Primary Care Provider Active Dr. Kodi Taylor MD Attending Provider, Emergency Provider Active Team Status: Inactive Member Role Status Dates Dr. Mathieu Virgen MD Primary Care Provider Active Dr. 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 Mathieu Virgen MD Primary Care Provider Active Dr. 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 Specialty Start Date End Date Mathieu Virgen MD [address] [place] [address] PCP - General Family Medicine 01/10/18 Asad Rothman, [facility] [address] [place] [address] Pharmacist Pharmacy 05/24/20 Kaitlyn Hernández, [facility] [address] [place] [address] Pharmacist Pharmacy 03/31/21 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 Specialty Start Date End Date Mathieu Virgen MD [address] [place] [address] PCP - General Family Medicine 01/10/18 Asad Rothman, [facility] [address] [place] [address] Pharmacist Pharmacy 05/24/20 dEgar Kaitlyn, [facility] [address] [place] [address] Pharmacist Pharmacy 03/31/21 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 Specialty Start Date End Date Mathieu Virgen MD [address] [place] [address] PCP - General Family Medicine 01/10/18 Asad Rothman, [facility] [address] [place] [address] Pharmacist Pharmacy 05/24/20 Edgar, Kaitlyn, [facility] [address] [place] [address] Pharmacist Pharmacy 03/31/21 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 Specialty Start Date End Date Mathieu Virgen MD [address] [place] [address] PCP - General Family Medicine 01/10/18 FaizanAsad sprague, [facility] [address] [place] [address] Pharmacist Pharmacy 05/24/20 Edgar, Kaitlyn, [facility] [address] [place] [address] Pharmacist Pharmacy 03/31/21 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 Specialty Start Date End Date Mathieu Virgen MD [address] [place] [address] PCP - General Family Medicine 01/10/18 Faizandarcie Asad, [facility] [address] [place] [address] Pharmacist Pharmacy 05/24/20 [place], [facility] [address] [place] [address] Pharmacist Pharmacy 03/31/21 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 Specialty Start Date End Date Mathieu Virgen MD [address] [place] [address] PCP - General Family Medicine 01/10/18 [facility] spragueP[facility] [address] [place] [address] Pharmacist Pharmacy 05/24/20 Jaqueline Hernándezily, [facility] [address] [place] [address] Pharmacist Pharmacy 03/31/21 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 Specialty Start Date End Date Mathieu Virgen MD [address] [place] [address] PCP - General Family Medicine 01/10/18 [facility] [address] [place] [address] Pharmacist Pharmacy 05/24/20 Kaitlyn Hern[facility]dezP[facility] [address] [place] [address] Pharmacist Pharmacy 03/31/21 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 Specialty Start Date End Date Mathieu Virgen MD [address] [place] [address] PCP - General Family Medicine 01/10/18 [facility] [address] [place] [address] Pharmacist Pharmacy 05/24/20 Kaitlyn [facility] [address] [place] [address] Pharmacist Pharmacy 03/31/21 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 Specialty Start Date End Date Mathieu Virgen MD [address] [place] [address] PCP - General Family Medicine 01/10/18 Asad Rothman, [facility] [address] [place] [address] Pharmacist Pharmacy 05/24/20 Kaitlyn [facility] [address] [place] [address] Pharmacist Pharmacy 03/31/21 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 Specialty Start Date End Date Mathieu Virgen MD [address] [place] [address] PCP - General Family Medicine 01/10/18 Asad Rothman, [facility] [address] [place] [address] Pharmacist Pharmacy 05/24/20 Kaitlyn Hernández, [facility] [address] [place] [address] Pharmacist Pharmacy 03/31/21 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 Specialty Start Date End Date Mathieu Virgen MD [address] [place] [address] PCP - General Family Medicine 01/10/18 Asad Rothman, [facility] [address] [place] [address] Pharmacist Pharmacy 05/24/20 Kaitlyn Hernández, [facility] [address] [place] [address] Pharmacist Pharmacy 03/31/21 Team Status: Inactive Member Role Status Dates Dr. Mathieu Virgen MD Primary Care Provider Active Dr. 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 Specialty Start Date End Date Mathieu Virgen MD [address] [place] [address] PCP - General Family Medicine 01/10/18 [facility] Health[facility]ague, [facility] [address] [place] [address] Pharmacist Pharmacy 05/24/20 GenevaJaquelienKaitlynBanner [address] [place] [address] Pharmacist Pharmacy 03/31/21 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 Specialty Start Date End Date Mathieu Virgen MD [address] [place] [address] PCP - General Family Medicine 01/10/18 Asad Rothman, [facility] [address] [place] [address] Pharmacist Pharmacy 05/24/20 [place], [facility] [address] [place] [address] Pharmacist Pharmacy 03/31/21 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 Specialty Start Date End Date Mathieu Virgen MD [address] [place] [address] PCP - General Family Medicine 01/10/18 [facility] [address] [place] [address] Pharmacist Pharmacy 03/31/21 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 Specialty Start Date End Date Mathieu Virgen MD [address] [place] [address] PCP - General Family Medicine 01/10/18 Kaitlyn Hernández, [facility] [address] [place], [place] [address] Pharmacist Pharmacy 03/31/21 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 Mathieu Virgen MD Primary Care Provider Active Dr. Tre Johnson DO Emergency Provider Active Team Status: Inactive Member Role Status Dates Dr. Mathieu Virgen MD Primary Care Provider Active Dr. 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 Specialty Start Date End Date Mathieu Virgen MD [address] [place] [address] PCP - General Family Medicine 01/10/18 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 Specialty Start Date End Date Mathieu Virgen MD [address] [place], [place] [address] PCP - General Family Medicine 01/10/18 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 Specialty Start Date End Date Mathieu Virgen MD [address] [place], [place] [address] PCP - General Family Medicine 01/10/18 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 Specialty Start Date End Date Mathieu Virgen MD [address] [place], [place] [address] PCP - General Family Medicine 01/10/18 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 Specialty Start Date End Date Mathieu Virgen MD [address] [place], [place] [address] PCP - General Family Medicine 01/10/18 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 Specialty Start Date End Date Mathieu Virgen MD [address] [place] [address] PCP - General Family Medicine 01/10/18 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 Specialty Start Date End Date Mathieu Virgen MD [address] [place] [address] PCP - General Family Medicine 01/10/18 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 Specialty Start Date End Date Mathieu Virgen MD [address] [place] [address] PCP - General Family Medicine 01/10/18 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 Specialty Start Date End Date Mathieu Virgen MD [address] [place] [address] PCP - General Family Medicine 01/10/18 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 Specialty Start Date End Date Mathieu Virgen MD [address] [place] [address] PCP - General Family Medicine 01/10/18 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 Specialty Start Date End Date Mathieu Virgen MD [address] [place] [address] PCP - General Family Medicine 01/10/18 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 Specialty Start Date End Date Mathieu Virgen MD [address] [place], [place] [address] PCP - General Family Medicine 01/10/18 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 Specialty Start Date End Date Mathieu Virgen MD [address] [place] [address] PCP - General Family Medicine 01/10/18 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 Specialty Start Date End Date Mathieu Virgen MD [address] [place] [address] PCP - General Family Medicine 01/10/18 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 Specialty Start Date End Date Mathieu Virgen MD [address] [place] [address] PCP - General Family Medicine 01/10/18 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 Specialty Start Date End Date Mathieu Virgen MD [address] [facility] [place] [address] PCP - General Family Medicine 01/10/18 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 Specialty Start Date End Date Mathieu Virgen MD [address] [place] [address] PCP - General Family Medicine 01/10/18 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 Specialty Start Date End Date Mathieu Virgen MD 0 [place] [address] PCP - General Family Medicine 01/10/18 Asad Rothman, [facility] [address] [place] [address] Pharmacist Pharmacy 05/24/20 07/30/23 Kaitlyn Hernández [facility] [address] [place] [address] Pharmacist Pharmacy 03/31/21 08/29/23 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 Specialty Start Date End Date Mathieu Virgen MD [address] [place] [address] PCP - General Family Medicine 01/10/18 Asad Rothman, [facility] [address] [place] [address] Pharmacist Pharmacy 05/24/20 07/30/23 Kaitlyn Hernández, [facility] [address] [place] [address] Pharmacist Pharmacy 03/31/21 08/29/23 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 Specialty Start Date End Date Mathieu Virgen MD [address] [place] [address] PCP - General Family Medicine 01/10/18 Asad Rothman, [facility] [address] [place] [address] Pharmacist Pharmacy 05/24/20 07/30/23 Edgar, Kaitlyn, [facility] [address] [place] [address] Pharmacist Pharmacy 03/31/21 08/29/23 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 Specialty Start Date End Date Mathieu Virgen MD [address] [place] [address] PCP - General Family Medicine 01/10/18 Asad Rothman, [facility] [address] [place] [address] Pharmacist Pharmacy 05/24/20 07/30/23 Kaitlyn Hernández, [facility] [address] [place] [address] Pharmacist Pharmacy 03/31/21 08/29/23 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 Specialty Start Date End Date Mathieu Virgen MD [address] [place] [address] PCP - General Family Medicine 01/10/18 Asad Rothman, [facility] [address] [place] [address] Pharmacist Pharmacy 05/24/20 07/30/23 Kaitlyn Hernández, [facility] [address] [place] [address] Pharmacist Pharmacy 03/31/21 08/29/23 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 Specialty Start Date End Date Mathieu Virgen MD [address] [place] [address] PCP - General Family Medicine 01/10/18 Asad Rothman, [facility] [address] [place] [address] Pharmacist Pharmacy 05/24/20 07/30/23 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 Specialty Start Date End Date Mathieu Virgen MD [address] [place] [address] PCP - General Family Medicine 01/10/18 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 Specialty Start Date End Date Mathieu Virgen MD [address] [place] [address] PCP - General Family Medicine 01/10/18 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 Specialty Start Date End Date Mathieu Virgen MD [address] [place] [address] PCP - General Family Medicine 01/10/18 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 Specialty Start Date End Date Mathieu Virgen MD [address] [place] [address] PCP - General Family Medicine 01/10/18 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 Specialty Start Date End Date Mathieu Virgen MD [address] [place] [address] PCP - General Family Medicine 01/10/18 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 Specialty Start Date End Date Mathieu Virgen MD [address] [place] [address] PCP - General Family Medicine 01/10/18 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 Specialty Start Date End Date Mathieu Virgen MD [address] [place] [address] PCP - General Family Medicine 01/10/18 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 Specialty Start Date End Date Mathieu Virgen MD [address] [place] [address] PCP - General Family Medicine 01/10/18 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 Specialty Start Date End Date Mathieu Virgen MD [address] [place] [address] PCP - General Family Medicine 01/10/18 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 Specialty Start Date End Date aMthieu Virgen MD [address] [place] [address] PCP - General Family Medicine 01/10/18 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 Specialty Start Date End Date Mathieu Virgen MD [address] [place] [address] PCP - General Family Medicine 01/10/18 Denisha Shepard APRN.RN ORTHOPAEDIC [address] [facility] [place] [address] Sql Report Developer Family Medicine 08/25/24 Julianna Hood APRN.RN ORTHOPAEDIC [address] [place] [address] Sql Report Developer Family [facility] 08/25/24 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 Specialty Start Date End Date Mathieu Virgen MD [address] [place] [address] PCP - General Family Medicine 01/10/18 Denisha Shepard APRN.RN ORTHOPAEDIC [address] [facility] [place] [address] Sql Report Developer Family Medicine 08/25/24 Julianna Hood APRN.RN ORTHOPAEDIC [address] [place] [address] Sql [facility] 08/25/24 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 Specialty Start Date End Date Mathieu Virgen MD [address] [place] [address] PCP - General Family Medicine 01/10/18 Denisha Shepard APRN.RN ORTHOPAEDIC [address] [facility] [place] [address] Sql Report Developer Family Medicine 08/25/24 Julianna Hood APRN.RN ORTHOPAEDIC [address] [place] [address] Sql [facility] 08/25/24 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 Specialty Start Date End Date Mathieu Virgen MD [address] [place] [address] PCP - General Family Medicine 01/10/18 Denisha Shepard APRN.RN ORTHOPAEDIC [address] [facility] [place] [address] Sql Report Developer [facility] 08/25/24 Julianna Hood APRN.RN ORTHOPAEDIC [address] [place] [address] [facility] 08/25/24 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 Specialty Start Date End Date Mathieu Virgen MD [address] [place] [address] PCP - General Family Medicine 01/10/18 Denisha Shepard APRN.RN ORTHOPAEDIC [address] [facility] [place] [address] [facility] 08/25/24 Julianna Hood TOLL LINE INSPECTOR.RN ORTHOPAEDIC [address] [place] [address] [facility] 08/25/24 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 Specialty Start Date End Date Mathieu Virgen MD [address] [place] [address] PCP - General Family Medicine 01/10/18 Denisha Shepard APRN.RN ORTHOPAEDIC [address] [facility] [place] [address] [facility] 08/25/24 Julianna Hood TOLL LINE INSPECTOR.RN ORTHOPAEDIC [address] [place] [address] [facility] 08/25/24 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 Specialty Start Date End Date Mathieu Virgen MD [address] [place] [address] PCP - General Family Medicine 01/10/18 Denisha Shepard APRN.RN ORTHOPAEDIC [address] [place] [address] [facility] 08/25/24 Julianna Hood APRN.RN ORTHOPAEDIC [address] [facility] [address] [facility] 08/25/24 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 Specialty Start Date End Date Mathieu Virgen MD [address] [place] [address] PCP - General Family Medicine 01/10/18 Denisha Sheprad APRN.RN ORTHOPAEDIC [address] [place] [address] [facility] 08/25/24 Julianna Hood TOLL LINE INSPECTOR.RN ORTHOPAEDIC [address] [place] [address] [facility] 08/25/24 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 Specialty Start Date End Date Mathieu Virgen MD [address] [place] [address] PCP - General Family Medicine 01/10/18 Denisha Shepard APRN.RN ORTHOPAEDIC [address] [place] [address] [facility] 08/25/24 Julianna Hood APRN.RN ORTHOPAEDIC [address] [place] [address] [facility] 08/25/24 Team Status: Active Member Role Status Dates Dr. Mathieu Virgen MD Primary Care Provider Active Team Status: Inactive Member Role Status Dates Dr. Mtahieu Virgen MD Primary Care Provider Active Start: August 11, 2024 End: August 11, 2024 Sergey Carreon WOOD POLE TREATER, WOOD POLE TREATER-C Attending Provider Active S tart: August 11, 2024 End: August 11, 2024 Sergey Carreon WOOD POLE TREATER, WOOD POLE TREATER-C Referring Provider Active S tart: August 11, 2024 End: August 11, 2024 Team Status: Inactive Member Role Status Dates Dr. Mathieu Virgen MD Primary Care Provider Active Start: August 13, 2024 End: August 13, 2024 Dr. Mathieu Virgen MD Referring Provider Active Start: August 13, 2024 End: August 13, 2024 Sergey Carreon WOOD POLE TREATER, WOOD POLE TREATER-C Attending Provider Active S tart: August 13, 2024 End: August 13, 2024 Team Status: Inactive Member Role Status Dates Dr. Mathieu Virgen MD Primary Care Provider Active Start: August 25, 2024 End: August 25, 2024 Megan Macario NP-C Attending Provider Active Start: August 25, 2024 End: August 25, 2024 Megan Macario NP-C Referring Provider Active Start: August 25, 2024 End: August 25, 2024 Team Status: Inactive Member Role Status Dates Dr. Mathieu Virgen MD Primary Care Provider Active Start: September 01, 2024 End: September 01, 2024 Dr. Mani Esquivel DO Attending Provider Active Start: September 01, 2024 End: September 01, 2024 Dr. Mani Esquivel DO Emergency Provider Active Start: September 01, 2024 End: September 01, 2024 Team Status: Inactive Member Role Status Dates Dr. Mathieu Virgen MD Primary Care Provider Active Start: September 03, 2024 End: September 03, 2024 Dr. Mathieu Virgen MD Referring Provider Active Start: September 03, 2024 End: September 03, 2024 Sergey Carreon WOOD POLE TREATER, WOOD POLE TREATER-C Attending Provider Active S tart: September 03, 2024 End: September 03, 2024 Team Status: Inactive Member Role Status Dates Dr. Mathieu Virgen MD Primary Care Provider Active Start: September 20, 2024 End: September 20, 2024 Reji Smith MD Attending Provider Active Star t: September 20, 2024 End: September 20, 2024 Reji Smith MD Emergency Provider Active Star t: September 20, 2024 End: September 20, 2024 Team Status: Inactive Member Role Status Dates Dr. Mathieu Virgen MD Primary Care Provider Active Start: September 23, 2024 End: September 23, 2024 Dr. Mathieu Virgen MD Referring Provider Active Start: September 23, 2024 End: September 23, 2024 Tierra KIRKPATRICK PA Attending Provider Active Start: September 23, 2024 End: September 23, 2024 Team Status: Inactive Member Role Status Dates Dr. Mathieu Virgen MD Primary Care Provider Active Start: October 07, 2024 End: October 07, 2024 Tierra KIRKPATRICK PA Attending Provider Active Start: October 07, 2024 End: October 07, 2024 Tierra KIRKPATRICK PA Referring Provider Active Start: October 07, 2024 End: October 07, 2024 Team Status: Inactive Member Role Status Dates Dr. Mathieu Virgen MD Primary Care Provider Active Start: October 23, 2024 End: October 23, 2024 EZRA Welch Attending Provider Active Start: October 23, 2024 End: October 23, 2024 Team Status: Inactive Member Role Status Dates Dr. Mathieu Virgen MD Primary Care Provider Active Start: November 03, 2024 End: November 03, 2024 Dr. Qasim Senior DO Attending Provider Active S tart: November 03, 2024 End: November 03, 2024 Dr. Qasim Senior DO Emergency Provider Active S tart: November 03, 2024 End: November 03, 2024 Team Status: Inactive Member Role Status Dates Dr. Mathieu Virgen MD Primary Care Provider Active Start: November 10, 2024 End: November 10, 2024 EZRA Welch Attending Provider Active Start: November 10, 2024 End: November 10, 2024 Team Status: Inactive Member Role Status Dates Dr. Mathieu Virgen MD Primary Care Provider Active Start: November 27, 2024 End: November 27, 2024 Dr. Mathieu Virgen MD Attending Provider Active Start: November 27, 2024 End: November 27, 2024 Dr. Mathieu Virgen MD Referring Provider Active Start: November 27, 2024 End: November 27, 2024 Team Status: Active Member Role Status Dates Dr. Mathieu Virgen MD Primary Care Provider Active Start: November 28, 2024 Dr. Mathieu Virgen MD Attending Provider Active Start: November 28, 2024 Dr. Mathieu Virgen MD Referring Provider Active Start: November 28, 2024 Team Status: Inactive Member Role Status Dates Dr. Mathieu Virgen MD Primary Care Provider Active Start: November 28, 2024 End: November 28, 2024 Dr. Mathieu Virgen MD Attending Provider Active Start: November 28, 2024 End: November 28, 2024 Dr. Mathieu Virgen MD Referring Provider Active Start: November 28, 2024 End: November 28, 2024 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 Specialty Start Date End Date Mathieu Virgen MD [address] [place] [address] PCP - General Family Medicine 01/10/18 Denisha Shepard APRN.RN ORTHOPAEDIC [address] [facility] [place] [address] Sql Report Developer Family Medicine 08/25/24 Julianna Hood APRN.RN ORTHOPAEDIC [address] [place] [address] Sql Report Developer Family Medicine 08/25/24 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 Specialty Start Date End Date Mathieu Virgen MD [address] [place] [address] PCP - General Family Medicine 01/10/18 Denisha Shepard APRN.RN ORTHOPAEDIC [address] [facility] [place] [address] Sql Report Developer Family [facility] 08/25/24 Julianna Hood APRN.RN ORTHOPAEDIC [address] [place] [address] Sql Report Developer Family Medicine 08/25/24 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 Specialty Start Date End Date Mathieu Virgen MD [address] [facility] [place] [id number] PCP - General Family Medicine 01/10/18 Denisha Shepard APRN.RN ORTHOPAEDIC [address] [place] [address] Sql Report Developer Family Medicine 08/25/24 Julianna Hood APRN.RN ORTHOPAEDIC [address] [facility] [place] [address] Sql Report [facility] 08/25/24 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 Specialty Start Date End Date Mathieu Virgen MD [address] [facility] [place] [address] PCP - General Family Medicine 01/10/18 Denisha Shepard TOLL LINE INSPECTOR.RN ORTHOPAEDIC [address] [facility] [place] [address] Sql Report Developer Family Medicine 08/25/24 Julianna Hood TOLL LINE INSPECTOR.RN ORTHOPAEDIC [address] [facility] [place] [address] Sql Report Developer Family Medicine 08/25/24 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 Specialty Start Date End Date Mathieu Virgen MD [address] [place], [place] [address] PCP - General Family Medicine 01/10/18 Denisha Shepard TOLL LINE INSPECTOR.RN ORTHOPAEDIC [address] [place], [place] [address] [phone] [facility] 08/25/24 Julianna Hood TOLL LINE INSPECTOR.RN ORTHOPAEDIC [address] [facility], [place] [address] [facility] 08/25/24 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 Specialty Start Date End Date Mathieu Virgen MD [address] [place], [place] [address] PCP - General Family Medicine 01/10/18 Denisha Shepard APRN.RN ORTHOPAEDIC [address] [place], [place] [address] [facility] 08/25/24 Julianna Hood TOLL LINE INSPECTOR.RN ORTHOPAEDIC [address] [place], [place] [id number] [facility] 08/25/24 Team Status: Inactive Member Role Status Dates Dr. Mathieu Virgen MD Primary Care Provider Active Start: December 11, 2024 End: December 11, 2024 Dr. Mathieu Virgen MD Referring Provider Active Start: December 11, 2024 End: December 11, 2024 Dr. Devante Ponce MD Attending Provider Active S tart: December 11, 2024 End: December 11, 2024 Team Status: Inactive Member Role Status Dates Dr. Mathieu Virgen MD Primary Care Provider Active Start: January 19, 2025 End: January 20, 2025 Dr. Abraham Tierney DO Attending Provider Active Start : January 19, 2025 End: January 20, 2025 Dr. Abraham Tierney DO Emergency Provider Active Start : January 19, 2025 End: January 20, 2025 Team Status: Inactive Member Role Status Dates Dr. Mathieu Virgen MD Primary Care Provider Active Start: January 21, 2025 End: January 21, 2025 Dr. Mathieu Virgen MD Referring Provider Active Start: January 21, 2025 End: January 21, 2025 Megan Macario , ARSALAN-C Attending Provider Active Start: January 21, 2025 End: January 21, 2025 Team Status: Inactive Member Role Status Dates Dr. Mathieu Virgen MD Primary Care Provider Active Start: January 21, 2025 End: January 21, 2025 Dr. Mathieu Virgen MD Attending Provider Active Start: January 21, 2025 End: January 21, 2025 Dr. Mathieu Virgen MD Referring Provider Active Start: January 21, 2025 End: January 21, 2025 Team Status: Inactive Member Role Status Dates Dr. Mathieu Virgen MD Primary Care Provider Active Start: January 26, 2025 End: January 26, 2025 Dr. Mathieu Virgen MD Referring Provider Active Start: January 26, 2025 End: January 26, 2025 Sergey Carreon WOOD POLE TREATER, WOOD POLE TREATER-C Attending Provider Active S tart: January 26, 2025 End: January 26, 2025 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 Specialty Start Date End Date Mathieu Virgen MD [address] [place], [place] [address] PCP - General Family Medicine 01/10/18 Denisha Shepard, TOLL LINE INSPECTOR.RN ORTHOPAEDIC [address] [place], [place] [address] [facility] 08/25/24 Julianna Hood TOLL LINE INSPECTOR.RN ORTHOPAEDIC [address] [place], [place] [address] [facility] 08/25/24 Team Status: Inactive Member Role Status Dates Dr. Mathieu Virgen MD Primary Care Provider Active Start: January 30, 2025 End: January 30, 2025 EZRA Welch Attending Provider Active Start: January 30, 2025 End: January 30, 2025 EZRA Welch Referring Provider Active Start: January 30, 2025 End: January 30, 2025 Team Status: Inactive Member Role Status Dates Dr. Mathieu Virgen MD Primary Care Provider Active Start: February 26, 2025 End: February 26, 2025 EZRA Welch Attending Provider Active Start: February 26, 2025 End: February 26, 2025 Megan Macario NP-Lonnie Referring Provider Active Start: February 26, 2025 End: February 26, 2025 Team Status: Active Member Role Status Dates Dr. Mathieu Virgen MD Primary Care Provider Active Start: March 02, 2025 EZRA Welch Referring Provider Active Start: March 02, 2025 Megan Macario NP-C Other Provider Active St art: March 02, 2025 Dr. Marvin Reeves DO Attending Provider Active S tart: March 02, 2025 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 Specialty Start Date End Date Mathieu Virgen MD [address] [place], [place] [id number] PCP - General Family Medicine 01/10/18 Denisha Shepard APRN.RN ORTHOPAEDIC [address] [place], [place] [id number] Sql Report Developer Family Medicine 08/25/24 Julianna Hood TOLL LINE INSPECTOR.RN ORTHOPAEDIC [address] [place], [place] [id number] Sql Report Developer [facility] 08/25/24 Team Status: Active Member Role/Relationship Status Dates Dr. Mathieu Virgen MD Primary Care Provider Active Team Status: Inactive Member Role/Relationship Status Dates Dr. Mathieu Virgen MD Primary Care Provider Active Start: December 11, 2024 End: December 11, 2024 Dr. Mathieu Virgen MD Referring Provider Active Start: December 11, 2024 End: December 11, 2024 Dr. Devante Ponce MD Attending Provider Active S tart: December 11, 2024 End: December 11, 2024 Team Status: Inactive Member Role/Relationship Status Dates Dr. Mathieu Virgen MD Primary Care Provider Active Start: January 19, 2025 End: January 20, 2025 Dr. Abraham Tierney DO Attending Provider Active Start : January 19, 2025 End: January 20, 2025 Dr. Abraham Tierney DO Emergency Provider Active Start : January 19, 2025 End: January 20, 2025 Team Status: Inactive Member Role/Relationship Status Dates Dr. Mathieu Virgen MD Primary Care Provider Active Start: January 21, 2025 End: January 21, 2025 Dr. Mathieu Virgen MD Referring Provider Active Start: January 21, 2025 End: January 21, 2025 TALIA WelchC Attending Provider Active Start: January 21, 2025 End: January 21, 2025 Team Status: Inactive Member Role/Relationship Status Dates Dr. Mathieu Virgen MD Primary Care Provider Active Start: January 21, 2025 End: January 21, 2025 Dr. Mathieu Virgen MD Attending Provider Active Start: January 21, 2025 End: January 21, 2025 Dr. Mathieu Virgen MD Referring Provider Active Start: January 21, 2025 End: January 21, 2025 Team Status: Inactive Member Role/Relationship Status Dates Dr. Mathieu Virgen MD Primary Care Provider Active Start: January 26, 2025 End: January 26, 2025 Dr. Mathieu Virgen MD Referring Provider Active Start: January 26, 2025 End: January 26, 2025 Sergey Carreon NP, WOOD POLE TREATER-C Attending Provider Active S tart: January 26, 2025 End: January 26, 2025 Team Status: Inactive Member Role/Relationship Status Dates Dr. Mathieu Virgen MD Primary Care Provider Active Start: January 30, 2025 End: January 30, 2025 Megan Macario NP-C Attending Provider Active Start: January 30, 2025 End: January 30, 2025 Megan Macario NP-C Referring Provider Active Start: January 30, 2025 End: January 30, 2025 Team Status: Active Member Role/Relationship Status Dates Dr. Mathieu Virgen MD Primary Care Provider Active Start: January 30, 2025 Dr. Marvin Reeves DO Attending Provider Active S tart: January 30, 2025 Megan Macario NP-C Referring Provider Active Start: January 30, 2025 Team Status: Inactive Member Role/Relationship Status Dates Dr. Mathieu Virgen MD Primary Care Provider Active Start: February 26, 2025 End: February 26, 2025 EZRA Welch Attending Provider Active Start: February 26, 2025 End: February 26, 2025 TALIA WelchC Referring Provider Active Start: February 26, 2025 End: February 26, 2025 Team Status: Active Member Role/Relationship Status Dates Dr. Mathieu Virgen MD Primary Care Provider Active Start: March 02, 2025 EZRA Welch Referring Provider Active Start: March 02, 2025 EZRA Welch Other Provider Active St art: March 02, 2025 Dr. Marvin Reeves DO Attending Provider Active S tart: March 02, 2025 Team Status: Inactive Member Role/Relationship Status Dates Dr. Mathieu Virgen MD Primary Care Provider Active Start: April 01, 2025 End: April 01, 2025 EZRA Welch Attending Provider Active Start: April 01, 2025 End: April 01, 2025 EZRA Welch Referring Provider Active Start: April 01, 2025 End: April 01, 2025 Team Status: Inactive Member Role/Relationship Status Dates Dr. Mathieu Virgen MD Primary Care Provider Active Start: April 08, 2025 End: April 08, 2025 Dr. Mathieu Virgen MD Referring Provider Active Start: April 08, 2025 End: April 08, 2025 EZRA Welch Attending Provider Active Start: April 08, 2025 End: April 08, 2025 Team Status: Inactive Member Role/Relationship Status Dates Dr. Mathieu Virgen MD Primary Care Provider Active Start: January 19, 2025 End: January 20, 2025 Dr. Abraham Tierney DO Attending Provider Active Start : January 19, 2025 End: January 20, 2025 Dr. Abraham Tierney DO Emergency Provider Active Start : January 19, 2025 End: January 20, 2025 Team Status: Inactive Member Role/Relationship Status Dates Dr. Mathieu Virgen MD Primary Care Provider Active Start: January 21, 2025 End: January 21, 2025 Dr. Mathieu Virgen MD Referring Provider Active Start: January 21, 2025 End: January 21, 2025 EZRA Welch Attending Provider Active Start: January 21, 2025 End: January 21, 2025 Team Status: Inactive Member Role/Relationship Status Dates Dr. Mathieu Virgen MD Primary Care Provider Active Start: January 21, 2025 End: January 21, 2025 Dr. Mathieu Virgen MD Attending Provider Active Start: January 21, 2025 End: January 21, 2025 Dr. Mathieu Virgen MD Referring Provider Active Start: January 21, 2025 End: January 21, 2025 Team Status: Inactive Member Role/Relationship Status Dates Dr. Mathieu Virgen MD Primary Care Provider Active Start: January 26, 2025 End: January 26, 2025 Dr. Mathieu Virgen MD Referring Provider Active Start: January 26, 2025 End: January 26, 2025 Sergey Carreon NP WOOD POLE TREATER-C Attending Provider Active S tart: January 26, 2025 End: January 26, 2025 Team Status: Inactive Member Role/Relationship Status Dates Dr. Mathieu Virgen MD Primary Care Provider Active Start: January 30, 2025 End: January 30, 2025 TALIA WelchC Attending Provider Active Start: January 30, 2025 End: January 30, 2025 Megan Macario NP-C Referring Provider Active Start: January 30, 2025 End: January 30, 2025 Team Status: Active Member Role/Relationship Status Dates Dr. Mathieu Virgen MD Primary Care Provider Active Start: January 30, 2025 Dr. Marvin Reeves DO Attending Provider Active S tart: January 30, 2025 EZRA Welch Referring Provider Active Start: January 30, 2025 Team Status: Inactive Member Role/Relationship Status Dates Dr. Mathieu Virgen MD Primary Care Provider Active Start: February 26, 2025 End: February 26, 2025 Megan Macario NP-C Attending Provider Active Start: February 26, 2025 End: February 26, 2025 Megan Macario NP-Lonnie Referring Provider Active Start: February 26, 2025 End: February 26, 2025 Team Status: Active Member Role/Relationship Status Dates Dr. Mathieu Virgen MD Primary Care Provider Active Start: March 02, 2025 EZRA Welch Referring Provider Active Start: March 02, 2025 EZRA Welch Other Provider Active St art: March 02, 2025 Dr. Marvin Reeves DO Attending Provider Active S tart: March 02, 2025 Team Status: Inactive Member Role/Relationship Status Dates Dr. Mathieu Virgen MD Primary Care Provider Active Start: April 01, 2025 End: April 01, 2025 EZRA Welch Attending Provider Active Start: April 01, 2025 End: April 01, 2025 EZRA Welch Referring Provider Active Start: April 01, 2025 End: April 01, 2025 Team Status: Inactive Member Role/Relationship Status Dates Dr. Mathieu Virgen MD Primary Care Provider Active Start: April 08, 2025 End: April 08, 2025 Dr. Mathieu Virgen MD Referring Provider Active Start: April 08, 2025 End: April 08, 2025 EZRA Welch Attending Provider Active Start: April 08, 2025 End: April 08, 2025 Team Status: Inactive Member Role/Relationship Status Dates Dr. Mathieu Virgen MD Primary Care Provider Active Start: April 08, 2025 End: April 08, 2025 EZRA Welch Attending Provider Active Start: April 08, 2025 End: April 08, 2025 EZRA Welch Referring Provider Active Start: April 08, 2025 End: April 08, 2025 Goals (unrecognized section and content) Goals may be documented in a n alternate sectionGoals may be documented in an alternate sectionGoals may be documented in an alternate sectionGoals may be documented in an alternate sectionGoals may be documented in an alternate sectionGoals may be documented in an alternate sectionGoals may be documented in an alternate sectionGoals may be documented in an alternate sectionGoals may be documented in an alternate sectionGoals may be documented in an alternate sectionGoals may be documented in an alternate sectionGoals may be documented in an alternate sectionGoals may be documented in an alternate sectionGoals may be documented in an alternate section (unrecognized sect ion and content) No Status Records FoundNo Status Records FoundNo Status Records Found INFORMATION SOURCE (unrecogn ized section and content) DATE CREATED AUTHOR 05/18/2024 [facility] DATE CREATED AUTHOR AUTHOR'S ORGANIZ ATION 04/06/2025 [facility] DATE CREATED AUTHOR AUTHOR'S ORGANIZ ATION 04/16/2025 [facility] FOR RECORDS PERTAINING TO PATIENTS WHO ARE [...] BE BASED ON THE PRIMARY CLINICAL RECORDS. [facility]. provides no warranty or guarantee of the accuracy or completeness of information in this document.
[2025-04-29] MEDS: APIXABAN 5 MG TABLET PO (23:28)
[2025-04-29] MEDS: 0.9% Normal Saline (1000mL) 1,000 ML 100 ML IV (23:28)
[2025-04-29] MEDS: 0.9% Saline Lock 10 ML Syringe IV (23:31)
[2025-04-30 03:00] VITALS: BP 120/53; PULSE 65; PULSE 82; RESP 14; TEMP 36.4; O2SAT 96
[2025-04-30 03:13] LABS: Mucous, Urine 0 SEEN /hpf (<or=2+); Red Blood Cells-Urine 0 SEEN /hpf (0-5)
[2025-04-30 03:14] LABS: Color, Urine Straw (Yellow); Glucose, Dipstick 1000 mg/dl (Normal); Ketone-Dipstick Negative (Negative); Leukocyte Esterase-Dipstick 25 /ul (Negative); Nitrite-Dipstick Negative (Negative); Occult Blood-Urine Negative /ul (Negative); Protein-Dipstick 15 mg/dl (Negative); Specific Gravity, Urine 1.015 (1.002-1.030); Urine Bilirubin Dipstick Negative (Negative)
[2025-04-30 03:23] VITALS: BMI 33.2
[2025-04-30 03:34] LABS: Squamous Epithelial Cells - UA 0-5 SEEN /hpf (0-5)
--- NOTE | 2025-04-30 05:55 | EKG12_ITS ---
Test Reason : STRESS TEST Blood Pressure : */* mmHG Vent. Rate : 72 BPM Atrial Rate : 72 BPM P-R Int : 234 ms QRS Dur : 168 ms QT Int : 462 ms P-R-T Axes : 4 -64 6 degrees QTcB Int : 505 ms Sinus rhythm with 1st degree A-V block with occasional Premature ventricular complexes Right bundle branch block Left anterior fascicular block Bifascicular block Abnormal ECG When compared with ECG of 29-Apr-2025 16:09, MANUAL COMPARISON REQUIRED DATA IS UNCONFIRMED Confirmed by Gabriel Lin ([id number]), field map editor CARLOTA SUTTON ([id number]) on 05/01/2025 10:06:52 AM Referred By: Yola Canales Confirmed By: Gabriel Lin
[2025-04-30 06:15] LABS: Hematocrit 40.6 % (40-54); Hemoglobin 13.4 g/dL (13.0-16.5); Immature Granulocytes Count 0.050 X10^3/uL (0.0-0.0); Mean Corp Hgb Conc 33.0 g/dL (32-36); Mean Corpuscular Volume 82.2 fL (80-94); Mean Platelet Vol. 10.5 fl (6.2-12.0); NRBC Flagged by Analyzer 0 % (0-5); Platelet Count 284 K/mm3 (150-450); RBC Distribution Width CV 15.1 % (11.6-14.6); RBC Distribution Width SD 45.4 fl (35.1-43.9); Red Blood Count 4.94 M/mm3 (4.6-6.2); White Blood Count 8.8 K/mm3 (4.4-11.0)
[2025-04-30 07:10] LABS: AST(SGOT) 13 U/L (<=37); Alanine Aminotransfer ALT/SGPT 11 U/L (<=46); Albumin, Serum 3.4 g/dL (3.4-4.8); Alkaline Phosphatase 103 U/L (40-129); Anion Gap 11 (5-15); BUN 18 mg/dL (4-19); BUN/Creat Ratio 21.9 RATIO (10-20); Calcium,Total 8.9 mg/dL (7.6-11.0); Carbon Dioxide 21.9 mmol/L (21.0-32.0); Chloride 106 mmol/L (98-108); Estimated Creatinine Clearance 92.43 ml/min (50-250); Globulin 2.8 g/dL (2.2-4.2); Glucose 102 mg/dL (70-99); Potassium 4.2 mmol/L (3.3-5.1)
[2025-04-30] MEDS: 0.9% Saline Lock 10 ML Syringe IV (10:31)
--- NOTE | 2025-04-30 10:34 | STRESSREP_ITS ---
Stress Test Report Pharmacologic myocardial perfusion stress test. [80]-year-old [male] with a history of hypertension, hyperlipidemia, diabetes mellitus, CAD, tobacco use in the past, restrictive lung disease, paroxysmal atrial fibrillation, obstructive sleep apnea, bifascicular block, presenting with syncope Resting EKG demonstrates sinus bradycardia, right bundle branch block, left intrafascicular block.resting heart rate 68 bpm resting blood pressure is [138/80] mmHg. 0.4 mg of regadenoson was infused per usual protocol followed by rapid intravenous saline flush injection. Continuous EKG monitoring was performed. The maximum heart rate was [81] bpm which was [58]% of max impacted heart rate the maximum workload was 1 metabolic equivalent. At rest there were no ST or T wave changes noted to suggest ischemia and at peak infusion nonspecific ST changes were noted which did not meet the criteria for ischemia. No clinical angina is noted. The final blood pressure was [118/72]mmHg. Myocardial perfusion protocol. [15] mCi of technetium 99m sestamibi was injected at rest. 0.4 mg of regadenoson was infused per usual protocol. At peak infusion [45] mCi of technetium 99m sestamibi was injected stress images were obtained stress and rest images were reconstructed and compared in the short axis vertical long and horizontal long axis. Gated images were also obtained. Perfusion SPECT analysis: Review of the stress images demonstrate normal uptake of tracer noted in all areas of the myocardium. The resting images similar demonstrated normal uptake of tracer noted in all areas of the myocardium. No areas of reversibility are noted to suggest ischemia and no previous infarct is noted. Borderline TID ratio 1.22 however by visual inspection no definitive cavity dilatation noted Gated SPECT analysis: The gated ejection fraction is [ 75]%. Conclusion: [Normal] pharmacologic myocardial perfusion stress test. No evidence of isch emia or infarction [Preserved normal LV ejection fraction. Underlying sinus bradycardia with bifascicular block
[2025-04-30 10:35] VITALS: BP 151/88; PULSE 69; RESP 16; TEMP 36.4; O2SAT 94
[2025-04-30] MEDS: APIXABAN 5 MG TABLET PO (10:59)
[2025-04-30] MEDS: Tolterodine Tartrate 4 MG CAP.SA PO (10:59)
[2025-04-30] MEDS: Cholecalciferol (VIT D3) 25 MCG TABLET (1,000 UNITS) 50 MCG PO (11:01)
[2025-04-30] MEDS: Insulin Glargine-YFGN 100 UNIT/ML Pen 24 UNIT SC (11:57)
--- NOTE | 2025-04-30 12:45 | CASEMGMT ---
Addendum entered by Janet Walker 04/30/25 16:55: Discharge order is in . NILDA BELLA has attempted to contact daughter again x 2, but call just goes straight to . Pt states he has also tried to call her. Pt aware he is being discharged. He states he will try to call his son-in-law but he wants to wait until after 5, when he thinks his son-in-law may be off of work. Latoya MUNGUIA, in room and aware. List of Rx assist programs printed off along w/[employer] info and Eliquis support phone #. This was given to NILDA Klein, along w/30-day Eliquis free trial offer card, in case pt has never used this card in the past. Latoya to provide this information to family when they come in to pick pt up to take him home. Original Note: NILDA BELLA NOTE: NILDA BELLA to room. Pt sitting up in chair in room. Introduced self and role. Pt denies having any concerns w/discharging home when medically ready. His daughter will take him home @ ut. Per PT/OT no therapy recommended. Noted in H/P that pt has not been taking Eliquis d/t cost. NILDA BELLA inquired about this. He states he does not know who ordered the Eliquis or how long ago he was put on it. He states his daughter would know. NILDA BELLA attempted to contact daughter. Phone did not ring through, it went straight to . NLIDA BELLA will attempt at a later time. Cj SHINE RN, CM
--- NOTE | 2025-04-30 15:58 | PCM.DC ---
Discharge Instructions DC O2, CPAP, BIPAP needs Home O2 Discharge instructions: No Dressing / Incision Discharge Activity: No Restrictions Follow Up Care Test Results: Test results from this visit will be discussed in further detail at your follow-up appointment, if applicable. Discharge Plan Admission Admit Date/Time: 04/29/25 19:37 Primary Reason for Your Visit: Episode of passing out Attending Provider: Chilango Wheeler Primary Care Provider: Jeff Subramanian Consulting Providers: Sachin Prather Discharge Orders/Prescriptions Prescriptions: Continued Eliquis 5 mg tablet 5 mg PO BID Qty: 180 3RF carvedilol 25 mg tablet 25 mg PO BID Qty: 180 3RF metformin 500 mg tablet extended release 24 hr 1,000 mg PO BID albuterol sulfate 90 mcg/actuation HFA aerosol inhaler 1 inh INHALATION Q6H PRN (Reason: SOB) Qty: 8.5 6RF turmeric root extract 500 mg capsule 1,000 mg PO DAILY flecainide 100 mg tablet 100 mg PO Q12H Qty: 180 3RF spironolactone 25 mg tablet 25 mg PO DAILY Qty: 30 11RF famotidine 20 mg tablet 20 mg PO BID Patient Comments: take 1 tablet by mouth twice a day insulin glargine [Basaglar KwikPen U-100 Insulin] 100 unit/mL (3 mL) insulin pen 40 unit subcut .COMPLEX Rx Instructions: 40 units subcutaneously QAM; NUVOFLEX 1 cap PO DAILY solifenacin 10 mg tablet 10 mg PO DAILY cholecalciferol (vitamin D3) [Vitamin D3] 50 mcg (2,000 unit) capsule 2,000 unit PO DAILY Jardiance 25 mg Tablet 25 mg PO DAILY Qty: 30 2RF Fiasp FlexTouch U-100 Insulin 100 unit/mL (3 mL) insulin pen 20 unit subcut TID mecobalamin (vitamin B12) 1,000 mcg tablet,chewable 1,000 mcg PO DAILY diltiazem HCl [Cartia XT] 120 mg capsule,extended release 24hr 120 mg PO DAILY tamsulosin 0.4 mg capsule 0.4 mg PO BID Patient Comments: per family hasn't started at home as was in & out of hospital though had prev taken during prev hospitalization. atorvastatin 20 mg tablet 20 mg PO DAILY furosemide [Lasix] 40 mg tablet 40 mg PO .with lunch Patient Comments: takes two pills for weight gain >4lbs finasteride 5 mg tablet 5 mg PO DAILY isosorbide mononitrate 30 mg tablet extended release 24 hr 30 mg PO DAILY Qty: 90 3RF Changed ferrous gluconate 324 mg (37.5 mg iron) tablet 324 mg PO DAILY 30 Days 3RF Referrals / Follow Up: Jeff Subramanian MD [Primary Care Provider] - Disposition Disposition (needs filled in before D/C Order can be placed): Home, Self Care
--- NOTE | 2025-04-30 15:59 | PCM.DC.SUM ---
Providers Date of Admission: 04/29/25 Date of Discharge: 04/30/25 Primary Care Physician: Dr. Jeff Subramanian MD Reason For Visit: SYNCOPE Diagnosis Discharge Diagnosis (1) Syncope: Status: Acute Code(s): R55 - Syncope and collapse Qualifiers: Syncope type: unspecified Qualified Code(s): R55 - Syncope and collapse (2) Medical non-compliance: Status: Acute Code(s): Z91.199 - Patient's noncompliance with other medical treatment and regimen due to unspecified reason (3) Elevated troponin: Status: Acute Code(s): R79.89 - Other specified abnormal findings of blood chemistry (4) Paroxysmal atrial fibrillation: Status: Chronic Code(s): I48.0 - Paroxysmal atrial fibrillation (5) History of CAD (coronary artery disease): Status: Acute Code(s): Z86.79 - Personal history of other diseases of the circulatory system Medications at Discharge Home Medications metformin 500 mg tablet,extended release 24 hr 1,000 mg PO BID blood sugar 10/24/21 albuterol sulfate 90 mcg/actuation aerosol inhaler 1 inh inhalation Q6H PRN SOB #8.5 grams 11/30/21 finasteride 5 mg tablet 5 mg PO DAILY bph 10/27/22 NUVOFLEX 1 cap PO DAILY arthritis 09/22/23 famotidine 20 mg tablet 20 mg PO BID reflux 09/22/23 insulin glargine 100 unit/mL (3 mL) subcutaneous pen (Basaglar KwikPen U-100 Insulin) 40 unit subcut .COMPLEX diabetes 09/22/23 turmeric root extract 500 mg capsule 1,000 mg PO DAILY viatmin 10/24/23 diltiazem HCl 120 mg capsule,extended release 24 hr (Cartia XT) 120 mg PO DAILY heart 06/08/24 tamsulosin 0.4 mg capsule 0.4 mg PO BID bph 07/10/24 cholecalciferol (vitamin D3) 50 mcg (2,000 unit) capsule (Vitamin D3) 2,000 unit PO DAILY supplement 07/22/24 solifenacin 10 mg tablet 10 mg PO DAILY bladder 07/22/24 empagliflozin 25 mg tablet (Jardiance) 25 mg PO DAILY diabetes #30 tabs 07/25/24 flecainide 100 mg tablet 100 mg PO Q12H heart #180 tabs 08/13/24 atorvastatin 20 mg tablet 20 mg PO DAILY cholesterol 09/01/24 spironolactone 25 mg tablet 25 mg PO DAILY diuretic #30 tabs 09/23/24 isosorbide mononitrate 30 mg tablet,extended release 24 hr 30 mg PO DAILY heart #90 tabs 10/22/24 insulin aspart (niacinamide)(U-100) 100 unit/mL(3 mL) subcutaneous pen (Fiasp FlexTouch U-100 Insulin) 20 unit subcut TID diabetes 01/19/25 mecobalamin (vitamin B12) 1,000 mcg chewable tablet 1,000 mcg PO DAILY vitamin 01/19/25 ferrous gluconate 324 mg (37.5 mg iron) tablet 324 mg PO DAILY 30 days 04/30/25 carvedilol 12.5 mg tablet 12.5 mg PO BID heart #180 tabs 05/04/25 Hospital Course Operations None Procedures EKG, Stress test, Transthoracic echo and - (CTA chest, carotid duplex ) Summary of Care Provided Minutes Spent on Discharge: 35 Hospital Course: Patient is an 80-year-old male who presented to [facility] ED on 04/29/2025 with syncope. Short hospital course as noted below. Patient discharged home in stable condition on 04/30. 1. Syncope ? Unclear etiology but dehydration in setting of heavy medication regimen as below likely the role. Was exerting himself outside, then shortly after going back inside he was leaning at the counter talking to his daughter when he passed out. CTA chest with no PE, clear lung henderson. Echo with EF 60%, mild concentric LV hypertrophy, no other concerning findings. Nuclear stress test unremarkable. Carotid duplex ultrasound with less than 50% stenosis bilaterally. Mild creatinine elevation and mild elevated troponins as below, otherwise no significant lab abnormalities. Given IV fluids on admit and blood pressures remained stable, and patient had no presyncopal symptoms during hospitalization. Stable for discharge home on 04/30. 2. Mild creatinine elevation, resolved ? Creatinine 1.20 on admit, baseline around 0.8. Improved back to baseline by hospital day 2 after IV fluid resuscitation. Adequate urine output during hospitalization. 3. Elevated troponins ? Troponin trend 43 > 42 > 38. No EKG changes noted. Cardiac workup benign as above. Chronic medical conditions: ? Paroxysmal A-fib, history of CAD, hypertension, hyperlipidemia: Follows with [place] [facility]. In normal sinus rhythm during admission. Continue home flecainide, Coreg, diltiazem, spironolactone, nitrate and statin. Patient had been off Eliquis for 1 month due to financial issues; restarted during this hospitalization and strongly recommended he continue on discharge. ? BPH with obstructive symptoms: Stable. Continue home Flomax and finasteride. ? GERD: Continue home famotidine. ? Type 2 diabetes mellitus: Resume home regimen on discharge. Total clinical time spent by myself addressing the patient's medical issues, reviewing all the data, and collaborating with patient's care team: 35 minutes. Physical Exam Const alert, oriented x3 and no apparent distress Constitutional Narrative: Elderly male, class I obesity, sitting back comfortably in bed, conversing normally, in no acute distress. General Appearance: cooperative and comfortable HEENT normocephalic, head/scalp atraumatic, hearing grossly normal bilaterally, nasal mucous membranes and turbinates normal and moist oral mucous membranes Eyes PERRL, EOMs intact bilaterally and conjunctivae normal Neck full ROM Chest inspection of chest normal Resp normal respiratory effort, normal air movement, no use of accessory muscles and clear to auscultation bilaterally Cardio regular rate, regular rhythm, no murmurs and peripheral pulses 2+ throughout GI normal to inspection, nondistended, normoactive bowel sounds, soft to palpation, non-tender and non-distended Back/Spine normal ROM Extremity normal to inspection, full ROM and no pedal edema Skin no rashes or lesions noted Psych mental status grossly normal Weight / BMI Weight Weight: 114.2 kg Body Mass Index (BMI) 33.2 ABG / Lab / Microbiology Data 04/30/25 05:31 04/30/25 05:31 Laboratory: Laboratory Results - last 24 hr 04/29/25 16:00: WBC 10.3, RBC 5.23, Hgb 14.3, Hct 42.8, MCV 81.8, MCH 27.3, MCHC 33.4, RDW Std Deviation 44.9 H, RDW Coeff of Lucia 14.9 H, Plt Count 327, MPV 10.5, Immature Gran % (Auto) 0.400, Neut % (Auto) 71.4 H, Lymph % (Auto) 14.5 L, [place] % (Auto) 10.5 H, Eos % (Auto) 2.8, Baso % (Auto) 0.4, Absolute Neuts (auto) 7.3, Absolute Lymphs (auto) 1.49, Nucleated RBC % 0, Sodium 135, Potassium 4.1, Chloride 100, Carbon Dioxide 19.9 L, Anion Gap 15, BUN 24 H, Creatinine 1.20, Estim Creat Clear Calc 64.29, Est GFR (MDRD) Non-Af 61, BUN/Creatinine Ratio 19.8, Glucose 155 H, Calcium 9.3, Magnesium 2.3 H, Troponin T High Sens 43 H D 04/29/25 17:50: Troponin T Hi Sens 2 Hr 42 H 04/29/25 19:55: Troponin T Hi Sens 4Hr 38 H 04/29/25 21:57: POC Glucose 164 H 04/29/25 23:25: POC Glucose 177 H 04/30/25 03:04: Urine Color Straw, Urine Clarity Clear, Urine pH 6.0, Ur Specific [place] 1.015, Urine Protein 15 H, Urine Glucose (UA) 1000 H, Urine Ketones Negative, Urine Occult Blood Negative, Urine Nitrite Negative, Urine Bilirubin Negative, Urine Urobilinogen Normal, Ur Leukocyte Esterase 25 H, Urine RBC 0 SEEN, Urine WBC 10-25 SEEN, Ur Squamous Epith Cells 0-5 SEEN, Urine Bacteria 1+, Urine Mucus 0 SEEN 04/30/25 05:31: WBC 8.8, RBC 4.94, Hgb 13.4, Hct 40.6, MCV 82.2, MCH 27.1, MCHC 33.0, RDW Std Deviation 45.4 H, RDW Coeff of Lucia 15.1 H, Plt Count 284, MPV 10.5, Immature Gran % (Auto) 0.600, Neut % (Auto) 65.2, Lymph % (Auto) 17.7 L, [place] % (Auto) 11.7 H, Eos % (Auto) 4.2, Baso % (Auto) 0.6, Absolute Neuts (auto) 5.7, Absolute Lymphs (auto) 1.56, Nucleated RBC % 0, Sodium 138, Potassium 4.2, Chloride 106, Carbon Dioxide 21.9, Anion Gap 11, BUN 18, Creatinine 0.83, Estim Creat Clear Calc 92.43, Est GFR (MDRD) Non-Af 88, BUN/Creatinine Ratio 21.9 H, Glucose 102 H, Hemoglobin A1c 6.7 H, Calcium 8.9, Phosphorus 3.0, Total Bilirubin 0.34, AST 13, ALT 11, Alkaline Phosphatase 103, Total Protein 6.2, Albumin 3.4, Globulin 2.8, Albumin/Globulin Ratio 1.2, TSH 1.530 04/30/25 11:55: POC Glucose 136 H 04/30/25 14:20: POC Glucose 338 H Radiography Diagnostic Testing: Radiology Impression Carotid Duplex 04/29/25 19:45 Interpretation Summary Mild (<50%) stenosis right extracranial internal carotid. Mild (<50%) stenosis left extracranial internal carotid. Acoustic shadowing is noted in the proximal internal carotid arteries bilaterally, particularly on the right, which obscures cesar-scale imaging of the arterial lumens. Determination of the degree of stenosis is based solely upon velocity criteria. If additional evaluation is desired, an alternative imaging modality could be considered. Flow within the vertebral arteries is antegrade bilaterally. Ordering Physician: Sachin Prather Referring Physician: Yola Canales Performed By: Anoop Liu RVT D/C Instructions DC O2, CPAP, BIPAP Needs Home O2 Discharge instructions: No Meaningful Use Info Meaningful Use Meaningful Use Diagnoses (Choose all that apply): None applicable Discharge Plan Admission Admit Date/Time: 04/29/25 19:37 Primary Reason for Your Visit: Episode of passing out Attending Provider: Chilango Wheeler Primary Care Provider: Jeff Subramanian Consulting Providers: Sachin Prather Discharge Orders/Prescriptions Prescriptions: Continued metformin 500 mg tablet extended release 24 hr 1,000 mg PO BID albuterol sulfate 90 mcg/actuation HFA aerosol inhaler 1 inh INHALATION Q6H PRN (Reason: SOB) Qty: 8.5 6RF turmeric root extract 500 mg capsule 1,000 mg PO DAILY flecainide 100 mg tablet 100 mg PO Q12H Qty: 180 3RF spironolactone 25 mg tablet 25 mg PO DAILY Qty: 30 11RF famotidine 20 mg tablet 20 mg PO BID Patient Comments: take 1 tablet by mouth twice a day insulin glargine [Basaglar KwikPen U-100 Insulin] 100 unit/mL (3 mL) insulin pen 40 unit subcut .COMPLEX Rx Instructions: 40 units subcutaneously QAM; NUVOFLEX 1 cap PO DAILY solifenacin 10 mg tablet 10 mg PO DAILY cholecalciferol (vitamin D3) [Vitamin D3] 50 mcg (2,000 unit) capsule 2,000 unit PO DAILY Jardiance 25 mg Tablet 25 mg PO DAILY Qty: 30 2RF Fiasp FlexTouch U-100 Insulin 100 unit/mL (3 mL) insulin pen 20 unit subcut TID mecobalamin (vitamin B12) 1,000 mcg tablet,chewable 1,000 mcg PO DAILY diltiazem HCl [Cartia XT] 120 mg capsule,extended release 24hr 120 mg PO DAILY tamsulosin 0.4 mg capsule 0.4 mg PO BID Patient Comments: per family hasn't started at home as was in & out of hospital though had prev taken during prev hospitalization. atorvastatin 20 mg tablet 20 mg PO DAILY finasteride 5 mg tablet 5 mg PO DAILY isosorbide mononitrate 30 mg tablet extended release 24 hr 30 mg PO DAILY Qty: 90 3RF Changed ferrous gluconate 324 mg (37.5 mg iron) tablet 324 mg PO DAILY 30 Days 3RF No Action carvedilol 12.5 mg tablet 12.5 mg PO BID Qty: 180 3RF Referrals / Follow Up: Jeff Subramanian MD [Primary Care Provider] - Disposition Disposition (needs filled in before D/C Order can be placed): Home, Self Care Charges/Coding Visit Charges Inpatient E&M: 43861 Disch Hosp >30min
[2025-04-30 16:01] VITALS: BP 125/73; PULSE 64; RESP 16; TEMP 36.9; O2SAT 98
[2025-04-30 16:33] VITALS: BP 125/73; PULSE 64; RESP 16; TEMP 36.9; O2SAT 98
== END 2025-04-30 16:01 | disposition home or self-care (01) ==
LOC: ED 19:12 → PCU 19:56
PROVIDERS: Admitting Provider Internal Medicine; Emergency Provider Student in an Organized Health Care Education/Training Program; PCP Family Medicine; Referring Provider Student in an Organized Health Care Education/Training Program; Visit Provider Hospitalist
DX: R55 Syncope and collapse (principal); L40.50 Arthropathic psoriasis, unspecified; J96.11 Chronic respiratory failure with hypoxia; I48.0 Paroxysmal atrial fibrillation; Z79.4 Long term (current) use of insulin; E11.9 Type 2 diabetes mellitus without complications; I65.23 Occlusion and stenosis of bilateral carotid arteries; G47.33 Obstructive sleep apnea (adult) (pediatric); I45.2 Bifascicular block; Z83.3 Family history of diabetes mellitus; Z68.33 Body mass index [BMI] 33.0-33.9, adult; M19.90 Unspecified osteoarthritis, unspecified site; Z87.891 Personal history of nicotine dependence; I25.10 Atherosclerotic heart disease of native coronary artery without angina pectoris; G89.29 Other chronic pain; E86.0 Dehydration; K21.9 Gastro-esophageal reflux disease without esophagitis; Z86.16 Personal history of COVID-19; E78.00 Pure hypercholesterolemia, unspecified; Z91.199 Patient's noncompliance with other medical treatment and regimen due to unspecified reason; I44.0 Atrioventricular block, first degree; E66.811 Obesity, class 1; Z90.49 Acquired absence of other specified parts of digestive tract; Z99.89 Dependence on other enabling machines and devices; R79.89 Other specified abnormal findings of blood chemistry; I10 Essential (primary) hypertension; N40.1 Benign prostatic hyperplasia with lower urinary tract symptoms; N13.8 Other obstructive and reflux uropathy; D50.9 Iron deficiency anemia, unspecified; G25.81 Restless legs syndrome; Z87.01 Personal history of pneumonia (recurrent); N32.81 Overactive bladder; Z85.51 Personal history of malignant neoplasm of bladder; M54.9 Dorsalgia, unspecified
CPT/HCPCS: 71275; 78452; 80048; 80053; 81001; 82962; 83036; 83735; 84100; 84443; 84484; 85025; 93005; 93017; 93306; 93880; 94668; 96360; 96361; 97161; 99221; 99252; 99285; A9500; Q9967; A4216; G0378; G0463; J2785

== ENCOUNTER 2025-05-31 11:07 | Observation (INO) | payer MEDICARE, SELFPAY ==
[2025-05-31] VITALS (18 sets, daily range): BP systolic 111–154; BP diastolic 53–108; PULSE 74–96; RESP 12–23; TEMP 36.5–36.7; O2SAT 92–99; BMI 27.0; BMI 33.1
--- NOTE | 2025-05-31 11:24 | EDS_ITS ---
HPI History of Present Illness Chief Complaint: Chest Pain Informant: patient Onset/Context/Timing Onset: Yesterday Activity at onset: gradual Timing: Continuous Quality: Positive for Sharp Location: Substernal, Left Parasternal and Left Chest Worsened By: Movement of Torso and Breathing Relieved By: Rest Associated Symptoms: Positive for Dyspnea; Negative for Nausea, Vomiting, Diaphoresis, Cough, Fever, Lightheadedness, Acid Reflux or Palpitations Narrative Narrative: Patient presents with chest pain that began last night. Patient states it does constant. Patient describes it as sharp. Patient states it is worse when he takes a deep breath or when he moves. Patient states it is over the substernal area and left chest. Patient states it is better when he is at rest. Patient states he feels short of breath with exertion. Patient denies any nausea or vomiting. Patient denies any lightheadedness or dizziness. Patient denies any palpitations. CVD Risk Factors: Positive for Hypertension, Diabetes and Hypercholesterolemia; Negative for Family History 1' </=55 or Smoking [facility] Medical History History of CAD (coronary artery disease) Paroxysmal atrial fibrillation Chronic pain Kidney stones GERD (gastroesophageal reflux disease) Non-smoker Diastolic dysfunction Dyspnea Diabetes Sleep apnea Atrial fibrillation Cancer Walker as ambulation aid Arthritis Prostate disease Complete edentulism, class III Gastric reflux CPAP (continuous positive airway pressure) dependence History of pain when walking History of edema History of echocardiogram History of stress test Cardiology follow-up encounter Blindness Bladder cancer Restrictive airway disease Morbid obesity Pneumonia due to COVID-19 virus Left lower lobe pneumonia Acute respiratory failure with hypoxia Wears hearing aid Wears glasses Insulin dependent diabetes mellitus Psoriasis High cholesterol Restless legs Back pain Injury of back Dietary restriction Former smoker Shortness of breath on exertion Hypertension Right bundle branch 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 Nonobstructive atherosclerosis of coronary artery Obesity BPH (benign prostatic hyperplasia) Hyperlipidemia Essential (primary) hypertension Atrial fibrillation with RVR (02/05/21) Home Medications Medication Instructions Recorded Last Taken Type metformin 500 mg tablet,extended 1,000 mg PO BID blood sugar 10/24/21 05/30/25 History release 24 hr albuterol sulfate 90 mcg/actuation 1 inh inhalation Q6 H PRN SOB #8.5 11/30/21 Unknown Rx aerosol inhaler grams finasteride 5 mg tablet 5 mg PO DAILY bph 10/27/22 0 05/30/25 History famotidine 20 mg tablet 20 mg PO BID reflux 09/22/23 05/30/25 History insulin glargine 100 unit/mL (3 40 unit subcut .COMPLE X diabetes 09/22/23 05/27/25 History mL) subcutaneous pen (Basaglar KwikPen U-100 Insulin) turmeric root extract 500 mg 1,000 mg PO DAILY viatmin 10/24/23 05/30/25 History capsule diltiazem HCl 120 mg 120 mg PO DAILY heart 05/30/25 History capsule,extended release 24 hr (Cartia XT) tamsulosin 0.4 mg capsule 0.4 mg PO BID bph 07/10/24 0 05/30/25 History cholecalciferol (vitamin D3) 50 2,000 unit PO DAILY myles pplement 07/22/24 05/30/25 History mcg (2,000 unit) capsule (Vitamin D3) solifenacin 10 mg tablet 10 mg PO DAILY bladder 07/2205/30/25 History empagliflozin 25 mg tablet 25 mg PO DAILY diabetes #30 tabs 07/25/24 05/30/25 Rx (Jardiance) flecainide 100 mg tablet 100 mg PO Q12H heart #180 ta bs 08/13/24 05/30/25 Rx atorvastatin 20 mg tablet 20 mg PO DAILY cholesterol 1 11/02/23 05/30/25 History spironolactone 25 mg tablet 25 mg PO DAILY diuretic #3 0 tabs 09/23/24 05/30/25 Rx isosorbide mononitrate 30 mg 30 mg PO DAILY heart #90 tabs 10/22/24 05/30/25 Rx tablet,extended release 24 hr insulin aspart 20 unit subcut TID diabetes 01/19/25 05/30/25 History (niacinamide)(U-100) 100 unit/mL(3 mL) subcutaneous pen (Fiasp FlexTouch U-100 Insulin) mecobalamin (vitamin B12) 1,000 1,000 mcg PO DAILY vit cottrell 01/19/25 05/30/25 History mcg chewable tablet ferrous gluconate 324 mg (37.5 mg 324 mg PO DAILY 30 d ays 04/30/25 05/30/25 Rx iron) tablet furosemide 40 mg tablet (Lasix) 40 mg PO PRN 05/22/25 05/30/25 History apixaban 5 mg tablet (Eliquis) 5 mg PO BID BLOOD THINN ER 05/31/25 05/30/25 History carvedilol 25 mg tablet 25 mg PO BID 05/31/25 History Allergy/AdvReac Type Severity Reaction Status Date / Time amoxicillin Allergy Rash Verified 05/31/25 11:08 Family History Sister Colon cancer Brother Diabetes Mother Diabetes Heart disease Cancer Father Heart disease Cancer Diabetes Surgical History Bladder disease Hx of right cataract extraction Hx of colonoscopy Hx of transurethral resection of prostate H/O wrist surgery History of left heart catheterization (02/07/21) Hx of umbilical hernia repair Hx of cholecystectomy Status post surgical manipulation of ankle joint H/O hemorrhoidectomy Social History household members: spouse Smoking Status: Former smoker how long ago did patient quit smokin years ago alcohol intake: never substance use type: does not use caffeine: Yes Type: coffee Number of servings: 1 ROS ROS ED Constitutional Constitutional ED: Denies chills or fever(s) Eyes Eyes: Denies blurry vision or change in vision ENT ENT ED: Denies rhinorrhea or sore throat Cardiovascular Cardiovascular: Reports as per HPI and chest pain; Denies palpitations Respiratory/Chest Respiratory/Chest: Reports dyspnea; Denies cough Gastrointestinal Gastrointestinal: Denies nausea or vomiting Genitourinary Genitourinary ED: Denies dysuria or hematuria Musculoskeletal Musculoskeletal: Reports neck pain; Denies back pain Integumentary Denies abscess or rash Neurologic Neurologic: Denies headache(s) or weakness Allergic/Immunologic Allergic/Immunologic ED: Denies mouth swelling or urticaria EXAM Physical Exam Const Vital Signs: 05/31/25 11:08 05/31/25 11:11 05/31/25 11:19 Temperature 97.7 F L Temperature Source Oral Pulse Rate 79 78 Respiratory Rate 18 20 H Respiratory Effort Normal Blood Pressure 144/84 H Blood Pressure Mean 104 Pulse Ox 99 98 Oxygen Delivery Method Room Air 05/31/25 11:30 05/31/25 11:43 05/31/25 12:07 Temperature Temperature Source Pulse Rate 75 96 Respiratory Rate 17 12 Respiratory Effort Blood Pressure 154/108 H Blood Pressure Mean 123 Pulse Ox 99 99 99 Oxygen Delivery Method Room Air Room Air 05/31/25 12:15 05/31/25 13:02 05/31/25 13:15 Temperature Temperature Source Pulse Rate 74 76 75 Respiratory Rate 18 13 21 H Respiratory Effort Blood Pressure 121/75 H 144/83 H Blood Pressure Mean 88 101 Pulse Ox 96 96 94 Oxygen Delivery Method 05/31/25 13:30 05/31/25 13:45 05/31/25 14:00 Temperature Temperature Source Pulse Rate 75 74 75 Respiratory Rate 20 H 23 H 21 H Respiratory Effort Blood Pressure 151/82 H 144/80 H 134/76 H Blood Pressure Mean 101 99 93 Pulse Ox 93 93 93 Oxygen Delivery Method Positive well nourished and well developed Constitutional Narrative: BMI is 27.1. General Appearance ED: well developed and NAD HEENT Reports moist mucous membranes Neck supple and no JVD Chest Wall palpation of chest normal Resp normal respiratory effort and clear to auscultation bilaterally Cardio regular rate and regular rhythm Rhythm: abnormal rhythm ectopic beats GI soft to palpation, non-tender and non-distended Extremity normal to inspection General Extremety ED: Negative for edema or tenderness General Extremity: Negative for edema Neuro oriented x3, CN's II-XII intact bilaterally and no sensory deficits noted Sensorium / Orientation: awake and alert Motor Exam: strength 5/5 throughout Psych mental status grossly normal Heart Score History: Slightly/Non-Suspicious ECG: Nonspecific Repolarization Age: >/= 65 years Risk Factors: >/= 3 Risk Factors or History of CAD Troponin: >/=3 x Normal Limit Score: 7 MDM MDM MDM Narrative Medical decision making narrative: Differential diagnosis includes cardiac dysrhythmia, cardiac ischemia, pneumonia, bronchitis, congestive heart failure, pulmonary embolism, gastroesophageal reflux disease, and musculoskeletal pain. EKG will be obtained to assess for cardiac dysrhythmia and cardiac ischemia. Chest x-ray will be obtained to assess for pneumonia, congestive heart failure, and bronchitis. CBC will be obtained to assess for leukocytosis and anemia. Basic metabolic profile will be obtained to assess for electrolyte abnormality and renal function. High-sensitivity troponin will be obtained to assess for cardiac ischemia. 2- hour repeat high-sensitivity troponin will be obtained to assess for ongoing cardiac ischemia. PT with INR and PTT will be obtained to assess for coagulopathy. D-dimer will be obtained to assess for pulmonary embolism. BNP will be obtained to assess for congestive heart failure. History & Record Review Additional record(s) reviewed:: Prior inpatient record, Prior outpatient record, Prior ED visit and Prior labs Lab Data Attestation: I reviewed the patient's lab results. Lab results narrative: CBC was hydrated and was within normal limits. Basic metabolic profile was reviewed. Glucose was mildly elevated at 164. The remainder is within normal limits. Initial high-sensitivity troponin was reviewed and was elevated at 68. 2-hour repeat high-sensitivity troponin was reviewed and was improving at 59. BNP was reviewed and was normal at 121. Labs: Laboratory Results - last 24 hr 05/31/25 05/31/25 11:13 13:14 WBC 10.1 RBC 5.54 Hgb 15.3 Hct 44.8 MCV 80.9 MCH 27.6 MCHC 34.2 RDW Std Deviation 45.4 H RDW Coeff of Lucia 15.5 H Plt Count 300 MPV 10.7 Immature Gran % (Auto) 0.600 Neut % (Auto) 70.0 Lymph % (Auto) 17.4 L Marin % (Auto) 9.6 Eos % (Auto) 2.0 Baso % (Auto) 0.4 Absolute Neuts (auto) 7.1 Absolute Lymphs (auto) 1.76 Nucleated RBC % 0 D-Dimer Quant (PE/DVT) 0.31 Sodium 135 Potassium 4.1 Chloride 100 Carbon Dioxide 20.0 L Anion Gap 15 BUN 25 H Creatinine 0.99 Estim Creat Clear Calc 66.13 Est GFR (MDRD) Non-Af 77 BUN/Creatinine Ratio 25.2 H Glucose 164 H Calcium 9.5 Troponin T High Sens 68 H* D Troponin T Hi Sens 2 Hr 59 H* NT pro BNP II 121 Radiography Chest X-Ray - ED: 1 View, Read by ED Physician, Read by Radiologist and Cardiomegaly Diagnostic Testing: Clinical Impression(s) from Imaging Studies Chest X-Ray 05/31/25 12:00 IMPRESSION: Stable mild cardiomegaly with pulmonary vascular congestion and interstitial lung disease. Reading Location: [facility] Portable 1 view chest x-ray was obtained. On my independent interpretation, lung henderson show mild vascular congestion and interstitial lung disease. There is mild cardiomegaly. Bony thorax is normal. There is no acute process noted. Radiologist also interpreted the x-ray and agrees. EKG Initial EKG: Attestation: I personally reviewed and interpreted this EKG as follows: Interpretation: Sinus Rhythm (With frequent PVCs with rate of 78), RBBB and Non-Specific ST Changes Comments: EKG was obtained. On my independent interpretation, shows a sinus rhythm with frequent PVCs with a rate of 78. [place] interval was slightly prolonged at 214 ms. QRS interval was slightly prolonged at 152 ms. QTc interval was normal at 483 ms. There is left axis deviation at -74. There is a right bundle branch block pattern noted. There are no acute ST or T wave changes noted. Prior EKG tracings: available for review Prior: Unchanged (05/04/2025) Treatment and Re-Evaluation :: Patient was given aspirin. Patient was advised of this finding. Patient has a HEART score of 7. Patient was advised overnight increased risk of acute cardiac event. 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 Pulido. He recommended admission to the hospital. Case was discussed with the hospitalist. He will admit the patient to his service. Patient understood and was agreeable with the plan. All questions were answered. Discharge Plan Triage Chief Complaint: Chest Pain ED Provider: Marcelo Hernandez Dx/Rx/DC Orders Clinical Impression: Chest pain, Essential (primary) hypertension, Elevated troponin Prescriptions: No Action metformin 500 mg tablet extended release 24 hr 1,000 mg PO BID albuterol sulfate 90 mcg/actuation HFA aerosol inhaler 1 inh INHALATION Q6H PRN (Reason: SOB) Qty: 8.5 6RF turmeric root extract 500 mg capsule 1,000 mg PO DAILY flecainide 100 mg tablet 100 mg PO Q12H Qty: 180 3RF spironolactone 25 mg tablet 25 mg PO DAILY Qty: 30 11RF famotidine 20 mg tablet 20 mg PO BID Patient Comments: take 1 tablet by mouth twice a day insulin glargine [Basaglar KwikPen U-100 Insulin] 100 unit/mL (3 mL) insulin pen 40 unit subcut .COMPLEX Patient Comments: HAS NOT HAD FOR A FEW DAYS BECAUSE HE IS OUT AT HOME Rx Instructions: 40 units subcutaneously QAM; solifenacin 10 mg tablet 10 mg PO DAILY cholecalciferol (vitamin D3) [Vitamin D3] 50 mcg (2,000 unit) capsule 2,000 unit PO DAILY Jardiance 25 mg Tablet 25 mg PO DAILY Qty: 30 2RF Fiasp FlexTouch U-100 Insulin 100 unit/mL (3 mL) insulin pen 20 unit subcut TID Rx Instructions: 20-26 U PER DAUGHTER BASED ON WHAT PT EATS mecobalamin (vitamin B12) 1,000 mcg tablet,chewable 1,000 mcg PO DAILY carvedilol 25 mg tablet 25 mg PO BID Eliquis 5 mg tablet 5 mg PO BID diltiazem HCl [Cartia XT] 120 mg capsule,extended release 24hr 120 mg PO DAILY tamsulosin 0.4 mg capsule 0.4 mg PO BID atorvastatin 20 mg tablet 20 mg PO DAILY ferrous gluconate 324 mg (37.5 mg iron) tablet 324 mg PO DAILY 30 Days 3RF finasteride 5 mg tablet 5 mg PO DAILY isosorbide mononitrate 30 mg tablet extended release 24 hr 30 mg PO DAILY Qty: 90 3RF furosemide [Lasix] 40 mg tablet 40 mg PO PRN Primary Care Provider: Jeff Subramanian Referrals: Jeff Subramanian MD [Primary Care Provider] - Print Language: Azeri Disposition Disposition: Acute Care [facility]
--- NOTE | 2025-05-31 11:43 | EKG12_ITS ---
Test Reason : CP Blood Pressure : */* mmHG Vent. Rate : 78 BPM Atrial Rate : 78 BPM P-R Int : 214 ms QRS Dur : 152 ms QT Int : 424 ms P-R-T Axes : -2 -74 5 degrees QTcB Int : 483 ms Sinus rhythm with 1st degree A-V block with frequent Premature ventricular complexes LAFB Right bundle branch block Abnormal ECG Confirmed by Gabriel Lin ([id number]), industrial editor CARLOTA SUTTON ([id number]) on 06/01/2025 1:25:48 PM Referred By: ES/BB Confirmed By: Gabriel Lin
--- NOTE | 2025-05-31 12:00 | RAD_ITS ---
PROCEDURE: CHEST 1 VIEW (PORTABLE) 05/31/2025 REASON FOR EXAM: CHEST PAIN TECHNIQUE: Frontal view of the chest. COMPARISON: CT angio chest 04/29/2025, chest x-ray 01/19/2025 FINDINGS: Hardware: None. Heart: Heart size is mildly enlarged. Lungs: Diffuse pulmonary vascular congestion and interstitial lung opacities. No pneumothorax. Bones: Degenerative changes are identified within the thoracic spine. RAD/Chest 1 View (Portable) IMPRESSION: Stable mild cardiomegaly with pulmonary vascular congestion and interstitial [place] ng disease. [facility]
[2025-05-31 12:02] LABS: Hematocrit 44.8 % (40-54); Hemoglobin 15.3 g/dL (13.0-16.5); Immature Granulocytes Count 0.060 X10^3/uL (0.0-0.0); Mean Corp Hgb Conc 34.2 g/dL (32-36); Mean Corpuscular Volume 80.9 fL (80-94); Mean Platelet Vol. 10.7 fl (6.2-12.0); NRBC Flagged by Analyzer 0 % (0-5); Platelet Count 300 K/mm3 (150-450); RBC Distribution Width CV 15.5 % (11.6-14.6); RBC Distribution Width SD 45.4 fl (35.1-43.9); Red Blood Count 5.54 M/mm3 (4.6-6.2); White Blood Count 10.1 K/mm3 (4.4-11.0)
--- OUTSIDE RECORDS SUMMARY | 2025-05-31 12:07 | XMS RPT_ITS | CCD ---
Author Organization [facility] Care Team Providers Care Veneer Manufacturer Name Role Phone Mathieu Virgen MD Primary Care Provider [facility], Keti Unavailable [facility], Kaitlyn Unavailable Dr. Mathieu Virgen Primary Care Provider Dr. Mathieu Virgen Referring Provider Roof SENIOR PROCESS ANALYST, SENIOR PROCESS ANALYST-C Sergey Solares Attending Provider Dr. Marvin Reeves Attending Provider Dr. Marvin Reeves Referring Provider Dr. Marvin Reeves Other Provider Yovani ARRIAZA, SENIOR PROCESS ANALYST-Lonnie Neri Attending Provider Dr. Mathieu Virgen Primary Care Provider Dr. Mathieu Virgen Referring Provider Roof SENIOR PROCESS ANALYST, SENIOR PROCESS ANALYST-Lonnie Solares Attending Provider Dr. Marvin Reeves Attending Provider Mathieu Virgen MD Primary Care Provider [facility], Keti Unavailable [facility], Kaitlyn Unavailable Mathieu Virgen MD Primary Care Provider [facility], Keti Unavailable [facility], Kaitlyn Unavailable Dr. Mathieu Virgen Primary Care Provider Dr. Mathieu Virgen Referring Provider Roof SENIOR PROCESS ANALYST, SENIOR PROCESS ANALYSTJosseline Solares Attending Provider Mathieu Virgen MD Primary Care Provider [facility], Keti Unavailable [facility], Kaitlyn Unavailable Dr. Mathieu Virgen Primary Care [...] Provider Dr. Mathieu Virgen Referring Provider Yovani SENIOR PROCESS ANALYST, EZRA Neri Attending Provider Dr. Mathieu Virgen Primary Care Provider [facility], Keti Unavailable Mathieu Virgen MD Primary Care Provider MELVIN BINGHAM Attending Unavailable MATHIEU VIRGEN Primary Care Unavailable [facility], Keti Unavailable [facility], Kaitlyn Unavailable Devyn LABORER PETROLEUM REFINERY.PCU RN, Denisha Unavailable Suppan LABORER PETROLEUM REFINERY.PCU RN, Julianna A Unavailable Suppan LABORER PETROLEUM REFINERY.PCU RN, Julianna A Unavailable Suppan LABORER PETROLEUM REFINERY.PCU RN, Julianna A Unavailable Dr. Mathieu Virgen MD Primary Care Provider Lauri SENIOR PROCESS ANALYST-C, Sergey Solares Attending Provider Lauri SENIOR PROCESS ANALYST-C, Sergey Solares Referring Provider Dr. Mathieu Virgen MD Referring Provider Renaldo SENIOR PROCESS ANALYST-CMegan Attending Provider Renaldo SENIOR PROCESS ANALYST-CMegan Referring Provider Dr. Mani Esquivel DO Attending Provider Dr. Mani Esquivel DO Emergency Provider Reji Smith MD Attending Provider Reji Smith MD Emergency Provider Tierra Perdomo Attending Provider Tierra Perdomo Referring Provider Dr. Qasim Senior DO Attending Provider Dr. Qasim Senior DO Emergency Provider Dr. Mathieu Virgen MD Attending Provider Dr. Mathieu Virgen MD Primary Care Provider Tierra Perdomo Attending Provider Renaldo ARRIAZA-CMegan Attending Provider Dr. Mathieu Virgen MD Referring Provider Dr. Devante Ponce MD Attending Provider Dr. Abraham Tierney DO Attending Provider Dr. Abraham Tierney DO Emergency Provider Lauri SENIOR PROCESS ANALYST-CSergey Attending Provider Renaldo SENIOR PROCESS ANALYST-CMegan Referring Provider Param SAMUEL, Dr. Aguilar Primary Care Provider Renaldo SENIOR PROCESS ANALYST-CMegan Attending Provider Renaldo MELGARCMegan Other Provider Pj PEDRO, Dr. Wong Attending Provider Param SAUMEL, Dr. Aguilar Primary Care Provider [phone] Param SAMUEL, Dr. Aguilar Referring Provider Renaldo SENIOR PROCESS ANALYST-CMegan Attending Provider Param SAMUEL, Dr. Aguilar Attending Provider jP PEDRO, Dr. Wong Attending Provider Param SAMUEL, Dr. Aguilar Primary Care Provider Param SAMUEL, Dr. Aguilar Referring Provider Ally SAMUEL, Dr. Aceves Referring Provider Unavailab alexandra Canales MD, Dr. Aceves Emergency Provider Unavailab le de Jose G DO, Dr. Stephenson Admit Provider Unavail able de Jose G PEDRO, Dr. Stephenson Attending Provider Unav ailable Prather DO, Dr. Stephenson Other Provider Unavail able Dr. Chilango Wheeler DO Attending Provider Dr. Chilango Wheeler DO Other Provider Leila SAMUEL, Dr. Hernández Attending Provider Unavailab DENISHA Gilbert Attending Unavailable MATHIEU VIRGEN Primary Care Unavailable PARAM, MATHIEU Nix Primary Care Unavailable JULIANNA HOOD Attending Unavailable ABRIL DUVAL Attending Unavailable PARAM, MATHIEU Nix Primary Care Unavailable CAYDEN TRAVIS Referring Unavailable PARAM, MATHIEU Nix Primary Care Unavailable PARAM, MATHIEU Nix Referring Unavailable MATHIEU VIRGEN Primary Care Unavailable MATHIEU VIRGEN Attending Unavailable PARAM, MATHIEU Nix Primary Care Unavailable PARAM, MATHIEU Nix Referring Unavailable PARAM, MATHIEU Nix Primary Care Unavailable MATHIEU VIRGEN Attending Unavailable MATHIEU VIRGEN Primary Care Unavailable PARAM, MATHIEU Nix Primary Care Unavailable JAMAL MACE Referring Unavailable PARAM, MATHIEU Nix Referring Unavailable PARAM, MATHIEU Nix Primary Care Unavailable JAMAL MACE Attending Unavailable MATHIEU VIRGEN Referring Unavailable PARAM, MATHIEU J Primary Care Unavailable PARAM, MATHIEU J Attending Unavailable PARAM, MATHIEU J Primary Care Unavailable PARAM, MATHIEU J Attending Unavailable PARAM, MATHIEU J Primary Care Unavailable PARAM, MATHIEU J Primary Care Unavailable SUKH HALL Attending Unavailable Eduardo Mg Attending Provider [phone] Shelby, Mathieu Primary Care Unavailable Megan Macario Referring Unavailable Megan Macario Attending Unavailable Shelby, Mathieu Primary Care Unavailable Narda Prather Consulting Unavailable Narda Prather Admitting Unavailable Ramiro Suárez Attending Unavailable Yola Canales Referring Unavailable Shelby, Mathieu Primary Care Unavailable Chilango Wheeler Attending Unavailable Narda Prather Consulting Unavailable Narda Prather Admitting Unavailable Yola Canales Referring Unavailable Shelby, Mathieu Primary Care Unavailable de Narda Araiza Consulting Unavailable Narda Prather Attending Unavailable Narda Prather Admitting Unavailable Shelby, Mathieu Primary Care Unavailable Sara Landry Admitting Unavailable Sara Landry Consulting Unavailable Miley Rodriguez Attending Unavailable Eduardo Sweet Referring Unavailable Shelby, Mathieu Primary Care Unavailable Eduardo Sweet Attending Unavailable Shelby, Mathieu Primary Care Unavailable Megan Macario Referring Unavailable Megan Macario Attending Unavailable Tierra Perdomo Attending Unavail able Shelby, Mathieu Primary Care Unavailable Tierra Perdomo Referring Unavail able [facility] Primary Care Unavailable [place] Attending Unavailable Shelby, Mathieu Primary Care Unavailable Tom Daley Attending Unavailable Tom Daley Referring Unavailable Shelby, Mathieu Primary Care Unavailable Megan Macario Attending Unavailable Megan Macario Referring Unavailable Julianna Hood Referring Unavailable Shelby, Mathieu Primary Care Unavailable Julianna Hood Attending Unavailable Qasim Senior Attending Unavailable Shelby, Mathieu Primary Care Unavailable Shelby, Mathieu Primary Care Unavailable Megan Macario Attending Unavailable Megan Macario Attending Unavailable Shelby, Mathieu Primary Care Unavailable Shelby, Mathieu Referring Unavailable Param, Mathieu Attending Unavailable Shelby, Mathieu Primary Care Unavailable Shelby, Mathieu Referring Unavailable Param, Mathieu Attending Unavailable Shelby, Mathieu Primary Care Unavailable Julianna Hood Attending Unavailable Suppan Julianna Referring Unavailable Shelby, Mathieu Primary Care Unavailable Shelby, Mathieu Primary Care Unavailable de Narda Araiza Consulting Unavailable de Narda Araiza Attending Unavailable Narda Prather Admitting Unavailable Shelby, Mathieu Primary Care Unavailable [place] Attending Unavailable Edgar Dee Attending Unavailable Chilango Wheeler Consulting Unavailable Chilango Wheeler Attending Unavailable Sara Landry Consulting Unavailable Shelby, Mathieu Primary Care Unavailable Sara Landry Admitting Unavailable Miley Rodriguez Attending Unavailable Miley Rodriguez Consulting Unavailable Marcus Hodge Attending Unavailable Ramiro Suárez Consulting Unavailable Ramiro Suárez Attending Unavailable Sara Landry Attending Unavailable Megan Macario Attending Unavailable Shelby, Mathieu Referring Unavailable Shelby, Mathieu Primary Care Unavailable Param, Mathieu Primary Care Unavailable Param, Mathieu Referring Unavailable Roof SENIOR PROCESS ANALYST, Sergey Solares Attending Unavailable Shelby, Mathieu Primary Care Unavailable Shelby, Mathieu Referring Unavailable Roof SENIOR PROCESS ANALYST, Sergey Solares Attending Unavailable Shelby, Mathieu Referring Unavailable Shelby, Mathieu Primary Care Unavailable Megan Macario Attending Unavailable Eduardo Sweet Attending Unavailable Param, Mathieu Primary Care Unavailable Shelby, Mathieu Referring Unavailable Param, Mathieu Primary Care Unavailable Megan Macario Attending Unavailable Shelby, Mathieu Referring Unavailable Param, Mathieu Referring Unavailable Parma, Mathieu Primary Care Unavailable Devante Ponce Attending Unavailable Param, Mathieu Primary Care Unavailable Megan Macario Referring Unavailable Marvin Reeves Attending Unavailable Param, Mathieu Primary Care Unavailable de Narda Araiza Referring Unavailable Devante Ponce Attending Unavailable Shelby, Mathieu Primary Care Unavailable Talia Lopez Attending Unavailable Shelby, Mathieu Primary Care Unavailable Megan Macario Referring Unavailable Megan Macario Consulting Unavailable Marvin Reeves Attending Unavailable Shelby, Mathieu Referring Unavailable Shelby, Mathieu Primary Care Unavailable Roof SENIOR PROCESS ANALYST, Sergey Solares Attending Unavailable Param, Mathieu Referring Unavailable Param, Mathieu Primary Care Unavailable Roof SENIOR PROCESS ANALYST, Sergey Solares Attending Unavailable Shelby, Mathieu Referring Unavailable Tierra Perdomo Attending Unavail able Shelby, Mathieu Primary Care Unavailable Shelby, Mathieu Primary Care Unavailable Mani Esquivel Attending Unavailable Mani Esquivel Attending Unavailable Param, Mathieu Primary Care Unavailable Reji Smith Attending Unavailable Param, Mathieu Primary Care Unavailable Shelby, Mathieu Primary Care Unavailable Megan Macario Attending Unavailable Megan Macario Referring Unavailable [facility] Unavailable Megan Macario Referring Unavailable Megan Macario Attending Unavailable [facility] Unavailable Roof SENIOR PROCESS ANALYST, Sergey Solares Attending Unavailable Roof SENIOR PROCESS ANALYST, Sergey Solares Referring Unavailable Abraham Tierney Attending Unavailable [facility] Unavailable [facility] Unavailable Roof SENIOR PROCESS ANALYST, Sergey Solares Referring Unavailable Roof SENIOR PROCESS ANALYST, Sergey Solares Attending Unavailable [facility] Referring Unavailable [facility] Attending Unavailable [facility] Unavailable Allergies Allergy Classification Reported Allergen(s) Allergy Type Date of Onset Reaction(s) Facility Penicillins (antibiotic) (2 sources) Amoxicillin Drug Allergy 05-11-2005 [facility] (20 sources) Amoxicillin; Translations: [AMOXICILLIN] Drug Allergy 05-11-2005 Rash [facility] (1 source) Amoxicillin Drug Allergy 04-29-2025 [facility] Medications Current Medications Medication Drug Class(es) Dates Sig (Normalized) Sig (Original) [id number] 200 actuat albuterol 0.09 mg/actuat metered dose [...] in structed every 4 hours as needed. atorvastatin 20 mg oral tablet (20 sources) HMG-CoA Reductase Inhibitor Start: 08-22-20 End: 08-22-20 take 1 tablet by mouth once daily Atorvastatin 20 mg tablet Active 20 mg PO DAILY September 01, 2024 1:00am cholesterol Blood-Glucose Meter,Continuous (FREESTYLE MARIELLE 3 READER) misc [...] twice daily. Take 1 tablet by srikanth two times a day. cholecalciferol 0.05 mg oral capsule (11 sources) Vitamin D Start: 07-22-20 take 1 capsule by mouth once daily Cholecalciferol (Vitamin D3) (Vitamin D3) 50 mcg (2,000 unit) capsule Active 2000 U PO DAILY July 22, 2024 1:00am supplement 24 hr dilTIAZem hydrochloride 120 mg extended release oral capsule (20 sources) Calcium Channel Salvador Start: 11-24-19 End: 02-23-20 dilTIAZem CD (CARDIZEM CD, CARTIA XT) 120 [...] Comment on above: Take 1 capsule by [facility] once daily. doxycycline hyclate 100 mg oral tablet (20 sources) Tetracycline-clas s Drug Start: 06-11-2023 End: [...] above: Take 1 tablet by srikanth twice daily for 10 days. empagliflozin 25 mg oral tablet (20 sources) Sodium-Glucose Cotransporter 2 Inhibitor Start: 07-25-20 End: 07-29-20 take 1 tablet by mouth once daily Empagliflozin (Jardiance) 25 mg Tablet Active 25 mg PO DAILY 30 July 25, 2024 1:00am diabetes Start: 06-22-2022 End: 11-29-2022 take 1 tablet [...] TWICE A DAY September 22, 2023 1:00am reflux Start: 03-02-2023 End: 05-31-2023 take 1 tablet by mouth twice daily famotidine (PEPCID) 20 mg tablet Indications: Nausea Take 1 tablet by mouth twice daily. 60 tablet 2 03/02/2023 05/31/2023 Active Comment on above: Take 1 tablet by srikanth twice daily. Take 1 tablet by srikanth two times a day. ferrous gluconate 324 mg oral tablet (6 sources) Start: 04-30-2025 take 1 tablet by mouth once daily Ferrous Gluconate 324 mg (37.5 mg iron) tablet Active 324 mg PO DAILY 30 April 30, 2025 4:00pm Start: 04-08-2025 End: 04-30-2025 take 1 tablet by mouth twice daily Ferrous Gluconate 324 mg (37.5 mg iron) tablet Discontinued 324 mg PO TWICE A DAY 60 April 08, 2025 12:00am April 30, 2025 4:00pm finasteride 5 mg oral tablet (20 sources) [...] Active Start: 08-13-2024 take 1 tablet by sriaknth th every twelve hours Flecainide 100 mg [...] tablet Discontinued 150 mg PO Q12H 60 July 13, 2023 2:37pm September 22, 2023 11:44am Comment on above: Take 1 tablet by srikanth th every 12 hours. Prescribed by outside petroleum refinery operator Take 150 mg by mouth twice daily. 3 ml insulin aspart, human 100 unt/ml pen injector (20 sources) Insulin Analog Start: 01-19-2025 Insulin Aspart (Niacinamide) (Fiasp Flextouch U-100 Insulin) 100 unit/mL (3 mL) insulin pen Active 20 U SC THREE TIMES A DAY January 19, 2025 12:00am diabetes Start: 01-19-2025 Insulin Aspart (Niacinamide) (Fiasp Flextouch [...] mL) insulin pen Active 40 U SC .COMPLEX September 22, 2023 1:00am diabetes 40 units subcutaneously QAM; Start: 09-22-2023 Insulin Glargi ne (Basaglar Kwikpen [...] Insulin Syringe-Needle U-100 1/2 mL 29 x 1/2" syrg (20 sources) Start: 07-23-20 15 Insulin Syringe-Needle U-100 1/2 mL 29 x 1/2" syrg Indications: Diabetes mellitus type 2, insulin dependent (HCC) 1 Each once daily. USE ONE SYRINGE FOR EACH DOSE/1PER DAY, (E11.9, Z79.4) Diabetes mellitus type 2, insulin dependent. 50 Syringe 11 07/23/2015 Active Comment on above: 1 Each once daily. U SE ONE SYRINGE FOR EACH DOSE/1PER DAY, (E11.9, Z79.4) Diabetes mellitus type 2, insulin dependent. mecobalamin 1 mg chewable tablet (9 sources) Start: 01-20-20 25 take 1 tablet by mouth once daily Mecobalamin (Vitamin B12) 1,000 mcg tablet,chewable Active 1000 ug PO DAILY January 19, 2025 12:00am vitamin 24 hr metFORMIN hydrochloride 500 mg extended [...] Comment on above: Take 2 tablets by [facility] twice daily before meals. Take [address] [facility] two times a day before meals. mupirocin 0.02 mg/mg topical ointment (5 sources) RNA Synthetase Inhibitor Antibacterial Start: 04-09-2024 End: 04-14-2024 mupirocin (BACTROBAN) 2 % ointment Apply to affected area three times a day for 5 days. 30 g 0 04/09/2024 04/14/2024 Active NUVOFLEX (12 sources) Start: 09-22-2023 NUVOFLEX Active 1 NMA PO DAILY September 22, 2023 1:00am arthritis Start: 09-22-2023 NUVOFLEX Activ e 1 NMA PO DAILY September 22, 2023 1:00am Start: 09-22-2023 take 2 capsules by m outh once daily NUVOFLEX Active 2 CAP PO [...] mg tablet Active 25 mg PO DAILY 16 08September 23, 2024 1:00am diuretic Start: 01-30-2022 End: 06-20-2024 take 1 tablet by mouth once daily Spironolactone 25 mg tablet Discontinued 25 mg PO DAILY January 30, 2022 12:00am June 16, 2024 [...] Start: 07-08-2024 take [address] [facility] every twelve hours tamsulosin (FLOMAX) 0.4 mg Take 1 capsule by mouth every 12 hours. 07/08/2024 Active Start: 02-07-2019 End: 11-29-2022 take 1 capsule by mouth once daily Tamsulosin (Flomax) 0.4 mg capsule Discontinued 0.4 mg PO DAILY October 10, 2021 1:00am January 30, 2022 11:34am Comment on above: Take 0.4 mg by mouth once daily. Prescribed by Dr. Daley, Urologist TUMERIC (1 source) Start: 09-22-2023 take 1000 mg by mouth once daily TUMERIC Active 1000 MG PO DAILY September 22, 2023 12:00am Turmeric extract (20 sources) TURMERIC ORAL Ta ke by mouth. Active Turmeric Root Extract 500 mg capsule (11 sources) Start: 10-24-2023 take 1 capsule by [...] (Original) amiodarone hydrochloride 200 mg oral tablet (19 sources) Antiarrhythmic Start: 06-23-2021 End: 07-18-2021 take 1 tablet by mouth twice daily Amiodarone 200 mg tablet Discontinued 200 mg PO TWICE A DAY 28 June 23, 2021 12:00am July 18, 2021 5:19pm apixaban 5 mg oral tablet (20 sources) Factor Xa Inhibitor Start: 02-07-2021 End: 03-27-2026 take 1 tablet by mouth twice daily Apixaban (Eliquis) 5 mg tablet Discontinued 5 mg PO TWICE A DAY 180 February 22, 2021 3:05pm May 04, 2025 10:12am blood thinner Comment on above: Take 1 tablet by srikanth th twice daily. Take 1 tablet by srikanth th two times a day. aspirin 81 mg delayed release oral tablet (20 sources) Platelet Aggregation Inhibitor, Nonsteroidal Anti-inflammatory Drug Start: 02-22-2021 End: 12-11-2024 take 1 tablet by mouth once daily Aspirin 81 mg tablet,delayed release (DR/EC) Discontinued 81 mg PO DAILY 90 February 22, 2021 12:00am December 11, 2024 [...] therapy completed) benzonatate 100 mg oral capsule (20 sources) Non-narcotic Antitussive Start: 3 End: 3 [...] Comment on above: Take 1 capsule by [facility] three times daily as needed for [...] July 10, 2024 3:45am on more dose colestipol hydrochloride 1000 mg oral tablet (20 sources) Bile Acid Sequestrant Start: 01-30-2022 End: 06-09-2025 Colestipol 1 gram tablet Discontinued 1 g PO DAILY as needed for gen health September 03, 2024 4:32pm April 29, 2025 10:04pm Start: 01-12-2022 End: 01-12-2023 take 1 tablet [...] Take 1 tablet by srikanth once daily. dexamethasone 4 mg oral tablet (19 sources) Corticosteroid Start: 09-20-19 End: 10-24-19 take 6 mg by mouth once daily Dexamethasone 4 mg Tablet Discontinued 6 mg PO DAILY 12 September 20, 2021 1:00am October 24, 2021 12:26pm Start: 09-20-2021 End: 10-24-2021 take 6 mg by mouth once daily Dexamethasone Discontinu ed 6 MG PO DAILY 08 24September 20, 2021 12:00am October 24, 2021 11:26am [...] times daily. dutasteride 0.5 mg oral capsule (20 sources) 5-alpha Reductase Inhibitor Start: 09-22-2021 End: 10-27-2022 take 1 capsule by mouth once daily Dutasteride 0.5 mg capsule Discontinued 0.5 mg PO DAILY October 24, 2021 1:00am October 27, 2022 6:09pm Comment on above: Take 0.5 mg by mouth once daily. furosemide 40 mg oral tablet (20 sources) Loop Diuretic Start: 04-29-2025 End: 05-04-2025 take 1 tablet by mouth at lunch Furosemide (Lasix) 40 mg tablet Discontinued 40 mg PO .with lunch April 29, 2025 12:00am May 04, 2025 10:08am diuretic Start: 09-03-2024 End: 09-23-2024 take 1 tablet by mouth twice daily Furosemide (Lasix) 40 mg tablet Discontinued 40 mg PO TWICE A DAY 60 September 03, 2024 5:04pm September 23, 2024 4:58pm Start: 07-25-2024 End: 04-29-2025 take 1 tablet by mouth once daily in the morning Furosemide (Lasix) 40 mg tablet Discontinued 40 mg PO EVERY MORNING 60 September 23, 2024 4:56pm April 29, 2025 10:08pm Start: 02-04-2024 End: 06-20-2024 take 1 tablet [...] Getting through [facility] 5 Each 1 12/06/2022 12/25/2023 Discontinued [...] hr Discontinued 30 mg PO DAILY 30 April 08, 2022 12:00am May 04, 2022 [...] Tablet Discontinued 100 mg PO DAILY 30 July 25, 2024 1:00am August 13, 2024 [...] / nitrofurantoin, monohydrate 75 mg oral capsule (11 sources) Nitrofuran Antibacterial Start: 07-11-2024 End: 07-22-2024 take 1 capsule by mouth every twelve hours at mealtime Nitrofurantoin Monohyd/M-Cryst (Macrobid) 100 mg capsule Discontinued 100 mg PO Q12H 6 3 0 July 11, 2024 12:00am July 22, 2024 6:13pm must administer with a meal/food ondansetron 4 mg disintegrating oral tablet (15 sources) Serotonin-3 Receptor Antagonist Start: 03-01-2023 End: 09-22-2023 take 1 tablet by mouth every eight hours as needed for nausea Ondansetron 4 mg tablet,disintegrati ng Discontinued 4 mg PO EVERY 8 HOURS NEEDED as needed for Nausea March 01, 2023 12:00am September 22, 2023 11:42am 24 hr oxybutynin chloride 10 mg extended release oral tablet (11 sources) Cholinergic Muscarinic Antagonist Start: 05-05-2024 End: 07-10-2024 take 1 tablet by mouth once daily Oxybutynin Chloride 10 mg tablet extended release 24hr Discontinued 15 mg PO DAILY May 05, 2024 12:00am July 10, 2024 9:36pm perflutren lipid microspheres 1.3 mL in NaCl (PF) 0.9% 10 mL injection (DEFINITY) (20 sources) Start: 01-24-2021 End: 04-25-2022 perflutren lipid microspheres 1.3 mL in NaCl (PF) 0.9% 10 mL injection (DEFINITY) polymyxin b [id number] unt/ml / trimethoprim 1 mg/ml ophthalmic solution [...] chloride 20 meq extended release oral tablet (11 sources) Start: 09-03-2024 End: 09-23-2024 take 1 tablet by mouth twice daily Potassium Chloride 20 mEq tablet extended release Discontinued 20 meq PO TWICE A DAY 60 September 03, 2024 1:00am September 23, 2024 4:56pm sennosides, residential 8.6 mg oral tablet (20 sources) Start: 03-05-2023 End: 11-14-2023 take 1 tablet by mouth every twelve hours as needed senna (SENOKOT) 8.6 mg tab Take 1 tablet by mouth twice daily as needed for constipation. 12 tablet 03/05/2023 11/14/2023 Discontinued Comment on above: Take 1 tablet by srikanth twice daily as needed for constipation. simvastatin [...] mL (BD POSIFLUSH) TUMERIC 1,000 mg capsule (11 sources) Start: 09-22-2023 End: 10-24-2023 take 1 [...] Complications of surgical procedures or medical care (11 sources) Postoperative hemorrhage; Translations: [Hemorrhage complicating a [...] coronary artery; Translations: [Atherosclerotic heart disease of [place] coronary artery without angina pectoris] Onset: 06-06-2023 06-22-2021 Chronic Deficiency and other anemia (1 source) Iron deficiency anemia; Translations: [Iron deficiency anemia, unspecified] 07-29-2024 Episodic Deficiency and other anemia (9 sources) Anemia; Translations: [Anemia, unspecified] 04-08-2025 Episodic [...] Chronic Comment on above: CONTROLLED WITH MEDS Hyperplasia of prostate (20 sources) Benign prostatic hyperplasia; Translations: [Benign prostatic hyperplasia with lower urinary tract symptoms] Onset: 06-20-2024 Chronic Nausea and vomiting (20 sources) Nausea; Translations: [Nausea] Onset: 03-06-2023 Resolved: 06-06-2023 03-01-2023 Episodic Nutritional deficiencies (1 source) Cobalamin deficiency; Translations: [Deficiency of other specified B group vitamins] 07-29-2024 Episodic Other aftercare (20 sources) Long-term current use of anticoagulant; Translations: [assisted (current) use of anticoagulants] Onset: 02-15-2021 02-15-2021 Episodic Other aftercare (1 source) Wound ; Translations: [Encounter for other specified surgical aftercare] 05-01-2023 Episodic Other and ill-defined heart disease (11 sources) Diastolic dysfunction; Translations: [Other ill-defined heart [...] Resolved: 06-06-2023 11-21-2022 Episodic Other circulatory disease (4 sources) Personal history of other diseases of the circulatory system; Translations: [Personal history of other diseases of circulatory system] Onset: 05-04-2025 11-21-2022 Episodic Other circulatory disease (14 sources) H/O: heart disorder; Translations: [Personal history of other diseases of the circulatory system] 07-22-2024 Episodic Other connective tissue disease (4 sources) Pain in left foot; Translations: [Pain in left foot] 01-12-2025 Episodic Other diseases of bladder and urethra (11 sources) Disorder of bladder; Translations: [Bladder disorder, [...] Translations: [Constipation, unspecified] Episodic Other gastrointestinal disorders (11 sources) Acute diarrhea; Translations: [Diarrhea, unspecified] 06-08-2024 [...] Onset: 05-11-2005 Chronic Other lower respiratory disease (11 sources) Pulmonary edema; Translations: [Chronic pulmonary edema] [...] 05-06-2021 11-21-2022 Episodic Other lower respiratory disease (19 sources) Pleuritic pain; Translations: [Pleurodynia] 09-28-2021 Episodic [...] classified] 06-23-2024 Episodic Other lower respiratory disease (20 sources) Hypoxia; Translations: [Hypoxemia] 07-22-2024 Episodic Other [...] Chronic Other nutritional; endocrine; and metabolic disorders (11 sources) Body mass index 40+ - severely obese; Translations: [Morbid (severe) obesity due to excess calories] 07-10-2024 Chronic Other nutritional; endocrine; and metabolic disorders (20 sources) Body mass index 30+ - obesity; Translations: [Obesity, unspecified] 07-31-2024 Chronic Other nutritional; endocrine; and metabolic disorders (1 source) Body mass index (BMI) 40.0-44.9, adult; Translations: [Body mass index [BMI] 40.0-44.9, adult] Onset: 07-23-2024 Chronic Other nutritional; endocrine; and metabolic disorders (3 sources) Weight gain; Translations: [Abnormal weight gain] 02-04-2024 Episodic Other screening for suspected conditions (not mental disorders or infectious disease) (20 sources) Liver function tests abnormal; Translations: [Abnormal results of liver function studies] Onset: 03-31-2009 Resolved: 03-03-2022 04-02-2009 Episodic Other skin disorders (1 source) Mass [...] Episodic Poisoning by other medications and drugs (19 sources) Poisoning by unspecified drugs, medicaments and [...] Comment on above: AHI is 81.9 from Dec emb2023 Residual codes; unclassified (1 source) Hypersomnia; Translations: [Hypersomnia, unspecified] 02-28-2024 Chronic Residual codes; unclassified (11 sources) Daytime hypersomnia; Translations: [Hypersomnia, unspecified] 07-31-2024 [...] [Insomnia, unspecified] 06-23-2024 Episodic Residual codes; unclassified (11 sources) Creatinine level - finding 03-09-2023 Episodic Residual codes; unclassified (6 sources) Patient noncompliance - general; Translations: [General patient noncompliance] 04-29-2025 Episodic Respiratory failure; insufficiency; arrest (adult) (1 [...] leg level, right leg, initial encounter] Episodic Syncope (9 sources) Near syncope; Translations: [Syncope and collapse] Onset: 05-28-2025 05-18-2023 Episodic Unclassified (1 source) OPENED IN ERROR Unclassified (1 source) Obesity, Class II, BMI 35-39.9; Translations: [Obesity, Class II, BMI 35-39.9] Onset: 01-31-2021 Unclassified (1 source) Patient's noncompliance with other medical treatment and regimen due to unspecified reason; Translations: [Patient's noncompliance with other medical treatment and regimen due to unspecified reason] Onset: 05-28-2025 Varicose veins of lower extremity (2 sources) [...] E Codes: Adverse effects of medical drugs (12 sources) Adverse reaction to drug; Translations: [Adverse effect of unspecified drugs, medicaments and biological substances, initial encounter] Onset: 07-23-2024 07-10-2024 Episodic Fluid and electrolyte disorders (20 sources) Mild dehydration; Translations: [Dehydration] Onset: 04-04-2023 Resolved: 06-06-2023 03-01-2023 Episodic Fracture of lower limb (6 sources) Closed fracture of foot; Translations: [Unspecified fracture of unspecified foot, initial encounter for closed fracture] Onset: 01-22-2025 01-15-2025 Episodic Genitourinary symptoms and ill-defined conditions (18 sources) Retention of urine; Translations: [Retention of urine, unspecified] Onset: 08-18-2021 Episodic Heart valve disorders (1 source) Cardiac murmur, unspecified; Translations: [Cardiac murmur, unspecified] Onset: 07-04-2024 Episodic Immunizations and screening for infectious disease (6 sources) Viral screening status; Translations: [Encounter for screening for other viral diseases] Onset: 06-20-2024 Episodic Malaise and fatigue (15 sources) Asthenia; Translations: [Weakness] Onset: 06-20-2024 05-31-2024 Episodic Nonspecific chest pain (20 sources) Chest pain; Translations: [Chest pain, unspecified] Onset: 07-23-2024 Episodic Other aftercare (1 source) assisted (current) use of anticoagulants; Translations: [Chronic anticoagulation] Onset: 02-15-2021 Episodic Other aftercare (1 source) intermediate frame tender (current) use of insulin; Translations: [Type 2 diabetes mellitus without complication, with long-term current use of insulin (HCC)] Onset: 06-11-2024 Episodic Other and unspecified benign neoplasm (20 sources) Tubular adenoma of colon; Translations: [Benign neoplasm of colon, unspecified] Onset: 06-02-2015 06-02-2015 Episodic Other bone disease and musculoskeletal deformities (1 source) Disorder of bone, unspecified; Translations: [Disorder of bone] Onset: 06-20-2024 Episodic Other connective tissue disease (1 source) Pain in left foot; Translations: [Foot pain, left] Onset: 01-12-2025 Episodic Other lower respiratory disease (3 sources) [...] deficiency] Onset: 06-09-2011 Resolved: 06-06-2023 06-09-2011 Chronic Residual codes; unclassified (1 source) Insomnia, unspecified; Translations: [Frequent nocturnal awakening] Onset: 06-23-2024 Episodic Residual codes; unclassified (1 source) Disorientation, unspecified; Translations: [Disorientation, unspecified] Onset: 08-01-2024 Episodic Spondylosis; intervertebral disc disorders; other back problems (20 sources) Sciatica; Translations: [Sciatica, unspecified side] Onset: 06-15-2005 Resolved: 05-06-2021 05-06-2021 Episodic Superficial injury; contusion (4 sources) Abrasion of left hand, initial encounter; Translations: [Abrasion or friction burn of hand(s) except finger(s) alone, without mention of infection] Onset: 01-12-2025 04-09-2024 Episodic Unclassified (2 sources) Contusion of left foot 01-12-2025 Urinary tract infections (20 sources) Urinary tract infectious disease; Translations: [Urinary tract infection, site not specified] Onset: 07-23-2024 09-09-2024 Episodic Results Test Name Value Interpretation Reference Range Facility Cardiology Visit Reporton Cardiology Visit Report Normal [facility] Basic Metabolic Profile (BMP )on 05-02-2025 BUN Normal 01-03 [facility] Comment on above: Result Comment: Canc elled via OM: Order cancelled - Patient discharged Performed By: #### L 100.0500, L500.2500 ####[facility] [address] [place], [address] BUN/CRE Normal 10-20 [facility] Comment on above: Result Comment: Canc elled via OM: Order cancelled - Patient discharged Performed By: #### L 100.0500, L500.2500 ####[facility] [address] [place], [address] Calcium Normal 7.6-11.0 [facility] Comment on above: Result Comment: Canc elled via OM: Order cancelled - Patient discharged Performed By: #### L 100.0500, L500.2500 ####[facility] [address] [place], [address] CL Normal 98-108 [facility] Comment on above: Result Comment: Canc elled via OM: Order cancelled - Patient discharged Performed By: #### L 100.0500, L500.2500 ####[facility] [address] [place], [address] CO2 Normal 21.0-32.0 [facility] Comment on above: Result Comment: Canc elled via OM: Order cancelled - Patient discharged Performed By: #### L 100.0500, L500.2500 ####[facility] [address] [place], [address] CREAT,SERUM Normal 0.70-1.20 [facility] Comment on above: Result Comment: Canc elled via OM: Order cancelled - Patient discharged Performed By: #### L 100.0500, L500.2500 ####[facility] [address] [place], [address] eGFR Normal >60 [facility] Comment on above: Result Comment: Canc elled via OM: Order cancelled - Patient discharged Performed By: #### L 100.0500, L500.2500 ####[facility] [address] [place], [address] GAP Normal 5-15 [facility] Comment on above: Result Comment: Canc elled via OM: Order cancelled - Patient discharged Performed By: #### L 100.0500, L500.2500 ####[facility] [address] [place], [address] GLU Normal 70-99 [facility] Comment on above: Result Comment: Canc elled via OM: Order cancelled - Patient discharged Performed By: #### L 100.0500, L500.2500 ####[facility] [address] [place], [address] Potassium Normal 3.3-5.1 [facility] Comment on above: Result Comment: Canc elled via OM: Order cancelled - Patient discharged Performed By: #### L 100.0500, L500.2500 ####[facility] [address] [place], [address] Basic Metabolic Profile (BMP) Normal 133-145 [facility] Comment on above: Result Comment: Canc elled via OM: Order cancelled - Patient discharged Performed By: #### L 100.0500, L500.2500 ####[facility] [address] [place], [address] CBC-Complete Blood Cnt No Di ffon 05-02-2025 HCT Normal 40-54 [facility] Comment on above: Result Comment: Canc elled via OM: Order cancelled - Patient discharged Performed By: #### L 100.0500, L500.2500 ####[facility] [address] [place], [address] HGB Normal 13.0-16.5 [facility] Comment on above: Result Comment: Canc elled via OM: Order cancelled - Patient discharged Performed By: #### L 100.0500, L500.2500 ####[facility] [address] [place], [address] MCH Normal 27.0-32.0 [facility] Comment on above: Result Comment: Canc elled via OM: Order cancelled - Patient discharged Performed By: #### L 100.0500, L500.2500 ####[facility] [address] [place], [address] MCHC Normal 32-36 [facility] Comment on above: Result Comment: Canc elled via OM: Order cancelled - Patient discharged Performed By: #### L 100.0500, L500.2500 ####[facility] [address] [place], [address] MCV Normal 80-94 [facility] Comment on above: Result Comment: Canc elled via OM: Order cancelled - Patient discharged Performed By: #### L 100.0500, L500.2500 ####[facility] [address] [place], [address] PLT Normal 150-450 [facility] Comment on above: Result Comment: Canc elled via OM: Order cancelled - Patient discharged Performed By: #### L 100.0500, L500.2500 ####[facility] [address] [place], [address] RBC Normal 4.6-6.2 [facility] Comment on above: Result Comment: Canc elled via OM: Order cancelled - Patient discharged Performed By: #### L 100.0500, L500.2500 ####[facility] [address] [place], [address] RDW CV Normal 11.6-14.6 [facility] Comment on above: Result Comment: Canc elled via OM: Order cancelled - Patient discharged Performed By: #### L 100.0500, L500.2500 ####[facility] [address] [place], [address] RDW SD Normal 35.1-43.9 [facility] Comment on above: Result Comment: Canc elled via OM: Order cancelled - Patient discharged Performed By: #### L 100.0500, L500.2500 ####[facility] [address] [place], [address] WBC Normal 4.4-11.0 [facility] Comment on above: Result Comment: Canc elled via OM: Order cancelled - Patient discharged Performed By: #### L 100.0500, L500.2500 ####[facility] [address] [place], [address] 12 Lead EKGon 04-30-2025 12 Lead EKG Normal [facility] Absolute lymphocyte countOrd ered By: Narda Araiza on 04-30-2025 Lymphocytes Auto (Unsp spec) [#/Vol] 1.56 10*3/uL 0.83-4.51 [facility] Absolute neutrophil countOrd ered By: Narda Araiza on 04-30-2025 Neutrophils (Bld) [#/Vol] 5.7 10*3/uL 2.0-7.7 [facility] Anion gap in Serum or Plasma Ordered By: Narda Araiza on 04-30-2025 Anion gap [Moles/Vol] 11 mmol/L 5-15 [facility] Automated lymphocyte count a s percentage of total leukocytesOrdered By: Narda Araiza on 04-30-2025 Lymphocytes/100 WBC Auto (Unsp spec) 17.7 % Low 19-41 [facility] BUN/creatinine ratioOrdered By: Narda Araiza on 04-30-2025 Urea nitrogen/Creatinine [Mass ratio] 21.9 mg/mg High 10-20 [facility] Basophil percentageOrdered B y: Narda Araiza on 04-30-2025 Basophils/100 WBC (Bld) 0.6 % 0-1 [facility] Bedside Glucoseon 04-30-2025 FINGERSTICK GLU 191 mg/dL High 74-106 [facility] Comment on above: Result Comment: URSULA GEMENT OF PATIENT CARE PER NURSING PROTOCOL Performed By: #### L 501.080 ####[facility] [address] [place], [address] FINGERSTICK GLU 338 mg/dL High 74-106 [facility] Comment on above: Result Comment: URSULA GEMENT OF PATIENT CARE PER NURSING PROTOCOL Performed By: #### L 501.080 ####[facility] [address] [place], [address] FINGERSTICK GLU 136 mg/dL High 74-106 [facility] Comment on above: Result Comment: URSULA GEMENT OF PATIENT CARE PER NURSING PROTOCOL Performed By: #### L 501.080 ####[facility] [address] [place], [address] FINGERSTICK GLU 177 mg/dL High 74-106 [facility] Comment on above: Result Comment: URSULA GEMENT OF PATIENT CARE PER NURSING PROTOCOL Performed By: #### L 501.080 ####[facility] [address] [place], [address] Bilirubin Test strip Ql (U)O rdered By: Narda Araiza on 04-30-2025 Bilirubin Ql (U) Negative Negative [facility] Bilirubin, totalOrdered By: Narda Araiza on 04-30-2025 Bilirubin [Mass/Vol] 0.34 mg/dL 0.00-1.30 [facility] CBC W/Diff, Automatedon 04-17 Absolute Lymph 1.56 X10 3/uL Normal 0.83-4.51 [facility] Comment on above: Performed By: #### L 501.9985, L100.0100, L500.4050, L501.2300, L501.9520 ####[facility] [address] [place], [address] Absolute Neut 5.7 X10 3/uL Normal 2.0-7.7 [facility] Comment on above: Performed By: #### L 501.9985, L100.0100, L500.4050, L501.2300, L501.9520 ####[facility] [address] [place], [address] Basophils/100 WBC (Bld) 0.6 % Normal 0-1 [facility] Comment on above: Performed By: #### L 501.9985, L100.0100, L500.4050, L501.2300, L501.9520 ####[facility] [address] [place], [address] Eosinophils/100 WBC (Bld) 4.2 % Normal 0-5 [facility] Comment on above: Performed By: #### L 501.9985, L100.0100, L500.4050, L501.2300, L501.9520 ####[facility] [address] [place], [address] Erythrocyte distribution width (RBC) [Ratio] 15.1 % High 11.6-14.6 [facility] Comment on above: Performed By: #### L 501.9985, L100.0100, L500.4050, L501.2300, L501.9520 ####[facility] [address] [place], [address] Hematocrit (Bld) [Volume fraction] 40.6 % Normal 40-54 [facility] Comment on above: Performed By: #### L 501.9985, L100.0100, L500.4050, L501.2300, L501.9520 ####[facility] [address] [place], [address] Hemoglobin (Bld) [Mass/Vol] 13.4 g/dL Normal 13.0-16. 5 [facility] Comment on above: Performed By: #### L 501.9985, L100.0100, L500.4050, L501.2300, L501.9520 ####[facility] [address] [place], [address] IG% 0.600 Normal 0.0-0.9 [facility] Comment on above: Result Comment: IG% - Immature Granulocytes (promyelocytes, myelocytes andmetamyelocytes) > 1% indicates that a LEFT SHIFT is Present. Performed By: #### L 501.9985, L100.0100, L500.4050, L501.2300, L501.9520 ####[facility] [address] [place], [address] Lymphocytes/100 WBC (Bld) 17.7 % Low 19-41 [facility] Comment on above: Performed By: #### L 501.9985, L100.0100, L500.4050, L501.2300, L501.9520 ####[facility] [address] [place], [address] MCH (RBC) [Entitic mass] 27.1 pg Normal 27.0-32.0 [facility] Comment on above: Performed By: #### L 501.9985, L100.0100, L500.4050, L501.2300, L501.9520 ####[facility] [address] [place], [address] MCHC (RBC) [Mass/Vol] 33.0 g/dL Normal 32-36 [facility] Comment on above: Performed By: #### L 501.9985, L100.0100, L500.4050, L501.2300, L501.9520 ####[facility] [address] [place], [address] MCV (RBC) [Entitic vol] 82.2 fL Normal 80-94 [facility] Comment on above: Performed By: #### L 501.9985, L100.0100, L500.4050, L501.2300, L501.9520 ####[facility] [address] [place], [address] Monocytes/100 WBC (Bld) 11.7 % High 0-10 [facility] Comment on above: Performed By: #### L 501.9985, L100.0100, L500.4050, L501.2300, L501.9520 ####[facility] [address] [place], [address] Neutrophils/100 WBC (Bld) 65.2 % Normal 47-70 [facility] Comment on above: Performed By: #### L 501.9985, L100.0100, L500.4050, L501.2300, L501.9520 ####[facility] [address] [place], [address] Nucleated RBC (Bld) [#/Vol] 0 10*3/uL Normal 0-5 [facility] Comment on above: Performed By: #### L 501.9985, L100.0100, L500.4050, L501.2300, L501.9520 ####[facility] [address] [place], [address] Platelet mean volume (Bld) [Entitic vol] 10.5 fL Normal 6.2-12.0 [facility] Comment on above: Performed By: #### L 501.9985, L100.0100, L500.4050, L501.2300, L501.9520 ####[facility] [address] [place], [address] Platelets (Bld) [#/Vol] 284 10*3/uL Normal 150-450 [facility] Comment on above: Performed By: #### L 501.9985, L100.0100, L500.4050, L501.2300, L501.9520 ####[facility] [address] [place], [address] RBC (Bld) [#/Vol] 4.94 10*6/uL Normal 4.6-6.2 [facility] Comment on above: Performed By: #### L 501.9985, L100.0100, L500.4050, L501.2300, L501.9520 ####[facility] [address] [place], [address] RDW SD 45.4 fl High 35.1-43.9 [facility] Comment on above: Performed By: #### L 501.9985, L100.0100, L500.4050, L501.2300, L501.9520 ####[facility] [address] [place], [address] WBC (Bld) [#/Vol] 8.8 10*3/uL Normal 4.4-11.0 [facility] Comment on above: Performed By: #### L 501.9985, L100.0100, L500.4050, L501.2300, L501.9520 ####[facility] [address] [place], [address] Carbon dioxide, total [Moles /volume] in Central venous bloodOrdered By: Narda Araiza on 04-30-2025 CO2 [Moles/Vol] 21.9 mmol/L 21.0-32.0 [facility] Cardiovascular stress test r eportOrdered By: Edgar Dee on 04-30-2025 Study report [facility] [address] [place] [address] MR#: [id number] Acct: [id number] Name: FAISAL ALARCON Rep #: [id number] : 1945 80 From: Edgar Dee MD Primary Care: Dr. Mathieu Virgen MD Status : ADM CARLOS Referring Dr: Yola Canales MD Sex: M C Stress Test Report Pharmacologic myocardial perfusion stress test. [80]-year-old [male] with a history of hypertension, hyperlipidemia, diabetes mellitus, CAD, tobacco use in the past, restrictive lung disease, paroxysmal atrial fibrillation, obstructive sleep apnea, bifascicular block, presenting with syncope Resting EKG demonstrates sinus bradycardia, right bundle branch block, left intrafascicular block.resting heart rate 68 bpm resting blood pressure is [138/80] mmHg. 0.4 mg of regadenoson was infused per usual protocol followed by rapid intravenous saline flush injection. Continuous EKG monitoring was performed. The maximum heart rate was [81] bpm which was [58]% of max impacted heart rate the maximum workload was 1 metabolic equivalent. At rest there were no ST or T wave changes noted to suggest ischemia and at peak infusion nonspecific ST changes were noted which did not meet the criteria for ischemia. No clinical angina is noted. The final blood pressure was [118/72]mmHg. Myocardial perfusion protocol. [15] mCi of technetium 99m sestamibi was injected at rest. 0.4 mg of regadenoson was infused per usual protocol. At peak infusion [45] mCi of technetium 99m sestamibi was injected stress images were obtained stress and rest images were reconstructed and compared in the short axis vertical long and horizontal long axis. Gated images were also obtained. Perfusion SPECT analysis: Review of the stress images demonstrate normal uptake of tracer noted in all areas of the myocardium. The resting images similar demonstrated normal uptake of tracer noted in all areas of the myocardium. No areas of reversibility are noted to suggest ischemia and no previous infarct is noted. Borderline TID ratio 1.22 however by visual inspection no definitive cavity dilatation noted Gated SPECT analysis: The gated ejection fraction is [ 75]%. Conclusion: [Normal] pharmacologic myocardial perfusion stress test. No evidence of ischemia or infarction [Preserved normal LV ejection fraction. Underlying sinus bradycardia with bifascicular block 04/30/25 1046 Date _ Edgar Dee MD CC: Dr. Chilango Wheeler DO; Dr. Narda Prather DO; Dr. Yola Canales MD; Dr. Mathieu Virgen MD ~ Date Dictated: 04/30/25 1034 Date Transcribed: 04/30/25 103 [address] [place]: Signed [facility] Chloride assayOrdered By: Oracio Araiza on 04-30-2025 Chloride [Moles/Vol] 106 mmol/L 98-108 [facility] Comprehensive Metabolic Prof ilon 04-30-2025 Albumin [Mass/Vol] 3.4 g/dL Normal 3.4-4.8 [facility] Comment on above: Performed By: #### L 501.9985, L100.0100, L500.4050, L501.2300, L501.9520 ####[facility] [address] [place], [address] Albumin/Globulin [Mass ratio] 1.2 {ratio} Normal 0.9-2.4 [facility] Comment on above: Performed By: #### L 501.9985, L100.0100, L500.4050, L501.2300, L501.9520 ####[facility] [address] [place], [address] ALK PHOS 103 U/L Normal 40-129 [facility] Comment on above: Performed By: #### L 501.9985, L100.0100, L500.4050, L501.2300, L501.9520 ####[facility] [address] [place], [address] ALT [Catalytic activity/Vol] 11 U/L Normal <=46 [facility] Comment on above: Performed By: #### L 501.9985, L100.0100, L500.4050, L501.2300, L501.9520 ####[facility] [address] [place], [address] AST [Catalytic activity/Vol] 13 U/L Normal <=37 [facility] Comment on above: Performed By: #### L 501.9985, L100.0100, L500.4050, L501.2300, L501.9520 ####[facility] [address] [place], [address] Bilirubin [Mass/Vol] 0.34 mg/dL Normal 0.00-1.30 [facility] Comment on above: Performed By: #### L 501.9985, L100.0100, L500.4050, L501.2300, L501.9520 ####[facility] [address] [place], [address] BUN/CRE 21.9 RATIO High 10-20 [facility] Comment on above: Performed By: #### L 501.9985, L100.0100, L500.4050, L501.2300, L501.9520 ####[facility] [address] [place], [address] Calcium [Mass/Vol] 8.9 mg/dL Normal 7.6-11.0 [facility] Comment on above: Performed By: #### L 501.9985, L100.0100, L500.4050, L501.2300, L501.9520 ####[facility] [address] [place], [address] Chloride [Moles/Vol] 106 mmol/L Normal 98-108 [facility] Comment on above: Performed By: #### L 501.9985, L100.0100, L500.4050, L501.2300, L501.9520 ####[facility] [address] [place], [address] CO2 [Moles/Vol] 21.9 mmol/L Normal 21.0-32.0 [facility] Comment on above: Performed By: #### L 501.9985, L100.0100, L500.4050, L501.2300, L501.9520 ####[facility] [address] [place], [address] Creatinine [Mass/Vol] 0.83 mg/dL Normal 0.70-1.20 [facility] Comment on above: Performed By: #### L 501.9985, L100.0100, L500.4050, L501.2300, L501.9520 ####[facility] [address] [place], [address] ECRCL 92.43 ml/min Normal 50-250 [facility] Comment on above: Performed By: #### L 501.9985, L100.0100, L500.4050, L501.2300, L501.9520 ####[facility] [address] [place], [address] GAP 11 Normal 5-15 [facility] Comment on above: Performed By: #### L 501.9985, L100.0100, L500.4050, L501.2300, L501.9520 ####[facility] [address] [place], [address] GFR/1.73 sq M.predicted among non-blacks MDRD (S/P/Bld) [Vol rate/Area] 88 mL/min/{1.73_m2} Normal >60 [facility] Comment on above: Result Comment: mL/m in/1.73m2 CKD-EPI Creatinine Equation (2020) Performed By: #### L 501.9985, L100.0100, L500.4050, L501.2300, L501.9520 ####[facility] [address] [place], [address] Globulin (S) [Mass/Vol] 2.8 g/dL Normal 2.2-4.2 [facility] Comment on above: Performed By: #### L 501.9985, L100.0100, L500.4050, L501.2300, L501.9520 ####[facility] [address] [place], [address] Glucose [Mass/Vol] 102 mg/dL High 70-99 [facility] Comment on above: Performed By: #### L 501.9985, L100.0100, L500.4050, L501.2300, L501.9520 ####[facility] [address] [place], [address] Potassium [Moles/Vol] 4.2 mmol/L Normal 3.3-5.1 [facility] Comment on above: Performed By: #### L 501.9985, L100.0100, L500.4050, L501.2300, L501.9520 ####[facility] [address] [place], [address] Sodium [Moles/Vol] 138 mmol/L Normal 133-145 [facility] Comment on above: Performed By: #### L 501.9985, L100.0100, L500.4050, L501.2300, L501.9520 ####[facility] [address] [place], [address] T PROT 6.2 g/dL Normal 5.9-8.4 [facility] Comment on above: Performed By: #### L 501.9985, L100.0100, L500.4050, L501.2300, L501.9520 ####[facility] [address] [place], [address] Urea nitrogen [Mass/Vol] 18 mg/dL Normal 4-19 [facility] Comment on above: Performed By: #### L 501.9985, L100.0100, L500.4050, L501.2300, L501.9520 ####[facility] [address] [place], [address] Discharge Instructionon 04-17 Discharge Instruction Normal [facility] Echocardiogram study reportO rdered By: Edgar Dee on 04-30-2025 Study report [facility] [address] [place] [address] Echo Complete 04/30/2505 MR#: [id number] Acct: [id number] Name: FAISAL ALARCON Rep #:[id number] : 1945 80 From: Edgar Brannon Attending Dr: Dr. Chilango Wheeler, DO Status: ADM CARLOS Ordering Dr: Narda Prather DO Date: 04/29/25 Location: [facility] Sex: M C Admitted: 04/29/25 Reason For Study Reason For Study: SYNCOPE/NEAR SYNCOPE Procedure This was a 2D Doppler, Color Flow transthoracic echocardiogram. Exam performed in department. Left Ventricle Normal LV size. Mild concentric left ventricular hypertrophy. The estimated ejection fraction is 60 %. Normal diastololic function. Right Ventricle Normal RV size. Normal systolic function. Atria The left and right atria are normal. Mitral Valve The mitral valve is structurally normal. No prolapse or stenosis seen. Mild (1+)eccentric mitral valve insufficiency. Tricuspid Valve The tricuspid valve is not well visualized. Normal pulmonary artery pressure. Mild tricuspid valve insufficiency. Aortic Valve Trisinus/trileaflet aortic valve. Mild diffuse aortic valve thickening. Mild focal aortic valve calcification. Mild to moderate aortic stenosis. Peak aortic valve gradient 34 mmHg. Mean aortic valve gradient 17 mmHg. The aortic valve area dimensionless index is 0.46. Pulmonic Valve Trivial pulmonic valve insufficiency. Great Vessels Normal sized aortic root. Normal inferior vena cava. Pericardium/Pleural No pericardial effusion. MMode/2D Measurements & Calculations LVIDd: 5.2 cm IVSd: 1.3 cm LVOT diam: 2.2 cm LVIDs: 3.7 cm LVPWd: 1.3 cm LVOT area: 3.8 cm2 RVDd: 3.7 cm FS: 29.2 % Ao root diam: 3.4 cm LAV(MOD-sp2): 69.0 ml LVAd ap4: 25.7 cm2 LVLd ap4: 7.2 cm EDV(MOD-sp4): 75.1 ml EDV(sp4-el): 78.3 ml LVAs ap4: 15.2 cm2 LVLs ap4: 6.2 cm ESV(MOD-sp4): 30.9 ml ESV(sp4-el): 31.7 ml EF(MOD-sp4): 58.9 % EF(sp4-el): 59.6 % LVAd ap2: 24.0 cm2 SV(MOD-sp4): 44.2 ml SV(MOD-sp2): 42.4 ml LVLd ap2: 6.9 cm SI(MOD-sp4): 18.8 ml/m2 SI(MOD-sp2): 18.1 ml/m2 EDV(MOD-sp2): 69.3 ml EDV(sp2-el): 70.8 ml LVAs ap2: 13.8 cm2 LVLs ap2: 5.9 cm ESV(MOD-sp2): 26.9 ml ESV(sp2-el): 27.1 ml EF(MOD-sp2): 61.1 % SV(sp4-el): 46.7 ml LA dimension(2D): 5.5 cm TAPSE: 2.5 cm Time Measurements MV dec time: 0.21 sec Doppler Measurements & Calculations MV E max kahlil: 94.3 cm/sec Lat Peak E' Kahlil: 7.5 cm/sec Med Peak E' Kahlil: 7.1 cm/sec MV A max kahlil: 84.2 cm/sec E/E' lat: 12.5 E/E' med: 13.3 MV E/A: 1.1 MV V2 max: 103.5 cm/sec MV P1/2t max kahlil: 114.9 cm/sec Ao V2 max: 286.3 cm/sec MV max P.3 mmHg MV P1/2t: 68.6 msec Ao max P.8 mmHg MV V2 mean: 61.4 cm/sec Ao V2 mean: 205.0 cm/sec MV mean P.7 mmHg MV dec slope: 490.3 cm/sec2 Ao mean P.8 mmHg MV V2 VTI: 27.5 cm MVA(P1/2t): 3.2 cm2 Ao V2 VTI: 67.3 cm AV (velocity ratio): 0.40 MVA(VTI): 3.7 cm2 ANA(I,D): 1.5 cm2 ANA(V,D): 1.6 cm2 LV V1 max: 119.2 cm/sec SV(LVOT): 102.1 ml PA V2 max: 117.9 cm/sec LV V1 max P.7 mmHg PA V2 mean: 85.9 cm/sec LV V1 mean P.2 mmHg LV V1 mean: 85.5 cm/sec LV V1 VTI: 27.0 cm PI dec slope: 121.8 cm/sec2 TR max kahlil: 281.9 cm/sec TR max P.8 mmHg ECHO/Echo Complete Interpretation Summary Normal LV size. Mild concentric left ventricular hypertrophy. The estimated ejection fraction is 60 %. Normal diastololic function. Normal RV size. Normal systolic function. Mild (1+) eccentric mitral valve insufficiency. Normal pulmonary artery pressure. Peak aortic valve gradient 34 mmHg. Mean aortic valve gradient 17 mmHg. The aortic valve area dimensionless index is 0.46. When compared to previous echocardiographic study 2023, no significant change except very mild increase in the mean aortic valve gradient from previously 11 to currently 17 Ordering Physician: Narda Prather Referring Physician: Yola Canales Performed By: Gregoria Pichardo, DORI, RVT 04/30/25 1128 Date _ Edgar Dee MD CC: Dr. Chilango Wheeler DO; Dr. Narda Prather DO; Dr. Yola Canales MD;Dr. Mathieu Virgen MD ~ Date Dictated: 04/30/25904 Date Transcribed: 04/30/251127 Pipe Caulker: Signed [facility] Eosinophil percentageOrdered By: Narda Araiza on 04-30-2025 Eosinophils/100 WBC (Bld) 4.2 % 0-5 [facility] Erythrocyte distribution wid th ratioOrdered By: Narda Araiza on 04-30-2025 Erythrocyte distribution width (RBC) [Ratio] 15.1 % High 11.6-14.6 [facility] Erythrocyte distribution wid th standard deviationOrdered By: Narda Araiza on 04-30-2025 Erythrocyte distribution width (RBC) [Ratio] 45.4 fl High 35.1-43.9 [facility] Glomerular filtration rate ( GFR) estimation/1.73 sq m using serum, plasma, or whole bOrdered By: Narda Araiza on 04-30-2025 GFR/1.73 sq M.predicted among non-blacks MDRD (S/P/Bld) [Vol rate/Area] 88 mL/min/{1.73_m2} >60 [facility] Comment on above: mL/min/1.73m2 CKD-EP I Creatinine Equation (2020) Glucose measurement at bedsi deOrdered By: Chilango Wheeler on 04-30-2025 Glucose [Mass/Vol] 191 mg/dL High 74-106 [facility] Comment on above: MANAGEMENT OF PATIEN T CARE PER NURSING PROTOCOL Hematocrit Auto (Bld) [Volum e fraction]Ordered By: Narda Araiza on 04-30-2025 Hematocrit (Bld) [Volume fraction] 40.6 % 40-54 [facility] Hemoglobin A1con 04-30-2025 HbA1c (Bld) [Mass fraction] 6.7 % High <=5.6 [facility] Comment on above: Result Comment: Norm al < 5.7 % Prediabetic 5.7 - 6.4 % Diabetic >or= 6.5 % Please note range changes. Performed By: #### L 501.9985, L100.0100, L500.4050, L501.2300, L501.9520 ####[facility] [address] [place], [address] Hemoglobin A1c percentageOrd ered By: Narda Araiza on 04-30-2025 HbA1c (Bld) [Mass fraction] 6.7 % High <5.7 [facility] Comment on above: Normal < 5.7 % Predi abetic 5.7 - 6.4 % Diabetic >or= 6.5 % Please note range changes. Hemoglobin measurementOrdere d By: Narda Araiza on 04-30-2025 Hemoglobin (Bld) [Mass/Vol] 13.4 g/dL 13.0-16. 5 [facility] Immature granulocytes/100 WB C Auto (Bld)Ordered By: Narda Araiza on 04-30-2025 Immature granulocytes/100 WBC (Bld) 0.600 % 0.0-0.9 [facility] Comment on above: IG% - Immature Granu locytes (promyelocytes, myelocytes and metamyelocytes) > 1% indicates that a LEFT SHIFT is Present. Ketones Test strip Ql (U)Ord ered By: Narda Araiza on 04-30-2025 Ketones Ql (U) Negative Negative [facility] Laboratory - Chemistry and C hemistry - challengeOrdered By: Narda Araiza on 04-30-2025 AST [Catalytic activity/Vol] 13 U/L <38 [facility] MCV (mean corpuscular volume ) determinationOrdered By: Narda Araiza on 04-30-2025 MCV (RBC) [Entitic vol] 82.2 fL 80-94 [facility] Mean corpuscular hemoglobin (MCH) determinationOrdered By: Narda Araiza on 04-30-2025 MCH (RBC) [Entitic mass] 27.1 pg 27.0-32.0 [facility] Mean corpuscular hemoglobin concentration (MCHC) determinationOrdered By: Narda Araiza on 04-30-2025 MCHC (RBC) [Mass/Vol] 33.0 g/dL 32-36 [facility] Mean platelet volume determi nationOrdered By: Narda Araiza on 04-30-2025 Platelet mean volume (Bld) [Entitic vol] 10.5 fL 6.2-12.0 [facility] Microscopic analysis of urin e for red blood cells (RBC)Ordered By: Narda Araiza on 04-30-2025 Microscopic analysis of urine for red blood cells (RBC) 0 SEEN /hpf 0-5 [facility] Monocyte percentageOrdered B y: Narda Araiza on 04-30-2025 Monocytes/100 WBC (Bld) 11.7 % High 0-10 [facility] Mucus LM Ql (Urine sed)Order ed By: Narda Araiza on 04-30-2025 Mucus Ql (Urine sed) 0 SEEN /hpf [facility] Neutrophil percentageOrdered By: Narda Araiza on 04-30-2025 Neutrophils/100 WBC (Bld) 65.2 % 47-70 [facility] Nitrite Test strip Ql (U)Ord ered By: Narda Araiza on 04-30-2025 Nitrite Ql (U) Negative Negative [facility] Nucleated red blood cell per centageOrdered By: Narda Araiza on 04-30-2025 Nucleated RBC/100 WBC (Bld) [Ratio] 0 % 0-5 [facility] Phosphoruson 04-30-2025 Phosphate [Mass/Vol] 3.0 mg/dL Normal 2.7-4.5 [facility] Comment on above: Performed By: #### L 501.9985, L100.0100, L500.4050, L501.2300, L501.9520 ####[facility] [address] [place], [address] Platelet countOrdered By: Oracio Araiza on 04-30-2025 Platelets (Bld) [#/Vol] 284 10*3/uL 150-450 [facility] Potassium measurement (mass/ volume)Ordered By: Narda Araiza on 04-30-2025 Potassium (Unsp spec) [Mass/Vol] 4.2 mmol/L 3.3-5.1 [facility] Protein Test strip Ql (U)Ord ered By: Narda Araiza on 04-30-2025 Protein Ql (U) 15 mg/dl High Negative [facility] RBC Auto (Bld) [#/Vol]Ordere d By: Narda Araiza on 04-30-2025 RBC (Bld) [#/Vol] 4.94 10*6/uL 4.6-6.2 [facility] Serum creatinine measurement (mass/volume)Ordered By: Narda Araiza on 04-30-2025 Creatinine [Mass/Vol] 0.83 mg/dL 0.70-1.20 [facility] Serum globulin measurementOr dered By: Narda Araiza on 04-30-2025 Globulin (S) [Mass/Vol] 2.8 g/dL 2.2-4.2 [facility] Serum glucose measurement (m ass/volume)Ordered By: Narda Araiza on 04-30-2025 Glucose [Mass/Vol] 102 mg/dL High 70-99 [facility] Serum or plasma alanine cottrell otransferase (ALT) measurementOrdered By: Narda Araiza on 04-30-2025 ALT [Catalytic activity/Vol] 11 U/L <47 [facility] Serum or plasma albumin nahomy urement (mass/volume)Ordered By: Narda Araiza on 04-30-2025 Albumin [Mass/Vol] 3.4 g/dL 3.4-4.8 [facility] Serum or plasma albumin/glob ulin mass ratioOrdered By: Narda Araiza on 04-30-2025 Albumin/Globulin [Mass ratio] 1.2 {ratio} 0.9-2.4 [facility] Serum or plasma alkaline ahsan sphatase measurementOrdered By: Narda Araiza on 04-30-2025 ALP [Catalytic activity/Vol] 103 U/L 40-129 [facility] Serum or plasma calcium nahomy urement (mass/volume)Ordered By: Narda Araiza on 04-30-2025 Calcium [Mass/Vol] 8.9 mg/dL 7.6-11.0 [facility] Serum or plasma urea nitroge n measurement (mass/volume)Ordered By: Narda Aariza on 04-30-2025 Urea nitrogen [Mass/Vol] 18 mg/dL 4-19 [facility] Sodium levelOrdered By: Chaz Araiza on 04-30-2025 Sodium [Moles/Vol] 138 mmol/L 133-145 [facility] Squamous epithelial cells de tection in urine sediment by light microscopyOrdered By: Narda Araiza on 04-30-2025 Epithelial cells.squamous LM Ql (Urine sed) 0-5 SEEN /hpf 0-5 [facility] Stress Reporton 04-30-2025 Stress Report Normal [facility] TSH DL <= 0.005 mIU/L QnOrde red By: Narda Araiza on 04-30-2025 TSH Qn 1.530 uIU/mL 0.300-4.200 [facility] Thyroid Stim Hormone (TSH)on 04-30-2025 TSH 1.530 uIU/mL Normal 0.300-4.200 [facility] Comment on above: Performed By: #### L 706.3909, L100.0100, L500.4050, L501.2300, L501.9520 ####[facility] [address] [place], [address] Total proteinOrdered By: Ki Araiza on 04-30-2025 Protein [Mass/Vol] 6.2 g/dL 5.9-8.4 [facility] Urinalysis, Completeon 04-30 BACTERIA 1+ /hpf Normal None Seen [facility] Comment on above: Order Comment: CLEAN CATCH Performed By: #### L 400.0001 ####[facility] [address] [place], [address] EPI,SQUAMOUS 0-5 SEEN Normal 0-5 [facility] Comment on above: Order Comment: CLEAN CATCH Performed By: #### L 400.0001 ####[facility] [address] [place], [address] WBC 10-25 SEEN Normal 0-5 [facility] Comment on above: Order Comment: CLEAN CATCH Performed By: #### L 400.0001 ####[facility] [address] [place], [address] Mucus Ql (Urine sed) 0 SEEN Normal [facility] Comment on above: Order Comment: CLEAN CATCH Performed By: #### L 400.0001 ####[facility] [address] [place], [address] RBC 0 SEEN Normal 0-5 [facility] Comment on above: Order Comment: CLEAN CATCH Performed By: #### L 400.0001 ####[facility] [address] [place], [address] Urine clarityOrdered By: Ki Araiza on 04-30-2025 Clarity (U) Clear Clear [facility] Urine color determinationOrd ered By: Narda Araiza on 04-30-2025 Color (U) Straw Yellow [facility] Urine glucose detectionOrder ed By: Narda Araiza on 04-30-2025 Glucose Ql (U) 1000 mg/dl High Normal [facility] Urine leukocyte esterase det ection by dipstickOrdered By: Narda Araiza on 04-30-2025 Leukocyte esterase Test strip Ql (U) 25 /ul High Negative [facility] Urine pHOrdered By: Narda gabriel on 04-30-2025 pH (U) 6.0 [pH] 5.0 - 8.0 [facility] Urine sediment bacteria coun t by microscopy (number/high power field)Ordered By: Narda Araiza on 04-30-2025 Bacteria LM.HPF (Urine sed) [#/Area] 1 /[HPF] None Seen [facility] Urine specific gravity measu rementOrdered By: Narda Araiza on 04-30-2025 Specific gravity (U) [Rel density] 1.015 1.002-1.030 [facility] Urine urobilinogen measureme ntOrdered By: Narda Araiza on 04-30-2025 Urobilinogen Ql (U) Normal mg/dl Normal [facility] White blood cell (WBC) count Ordered By: Narda Araiza on 04-30-2025 WBC (Bld) [#/Vol] 8.8 10*3/uL 4.4-11.0 [facility] White blood cell countOrdere d By: Narda Araiza on 04-30-2025 White blood cell count 10-25 SEEN /hpf 0-5 [facility] Absolute lymphocyte countOrd ered By: Yola Canales on 04-29-2025 Lymphocytes Auto (Unsp spec) [#/Vol] 1.49 10*3/uL 0.83-4.51 [facility] Absolute neutrophil countOrd ered By: Yola Canales on 04-29-2025 Neutrophils (Bld) [#/Vol] 7.3 10*3/uL 2.0-7.7 [facility] Anion gap in Serum or Plasma Ordered By: Yola Canales on 04-29-2025 Anion gap [Moles/Vol] 15 mmol/L 5-15 [facility] Automated blood erythrocyte countOrdered By: Yola Canales on 04-29-2025 RBC (Bld) [#/Vol] 5.23 10*6/uL Normal 4.6-6.2 [facility] Comment on above: Performed By: #### L 500.2500, L501.5200, L501.4021, L100.0100 ####[facility] [address] [place], [address] Automated blood hematocrit ( percentage)Ordered By: Yola Canales on 04-29-2025 Hematocrit (Bld) [Volume fraction] 42.8 % Normal 40-54 [facility] Comment on above: Performed By: #### L 500.2500, L501.5200, L501.4021, L100.0100 ####[facility] [address] [place], [address] Automated lymphocyte count a s percentage of total leukocytesOrdered By: Yola Canales on 04-29-2025 Lymphocytes/100 WBC Auto (Unsp spec) 14.5 % Low 19-41 [facility] BUN/creatinine ratioOrdered By: Yola Canales on 04-29-2025 Urea nitrogen/Creatinine [Mass ratio] 19.8 mg/mg 10- [facility] Basic Metabolic Profile (BMP )on 04-29-2025 BUN/CRE 19.8 RATIO Normal - [facility] Comment on above: Performed By: #### L 500.2500, L501.5200, L501.4021, L100.0100 ####[facility] [address] [place], [address] ECRCL 64.29 ml/min Normal 50-250 [facility] Comment on above: Performed By: #### L 500.2500, L501.5200, L501.4021, L100.0100 ####[facility] [address] [place], [address] GAP 15 Normal 5-15 [facility] Comment on above: Performed By: #### L 500.2500, L501.5200, L501.4021, L100.0100 ####[facility] [address] [place], [address] Potassium [Moles/Vol] 4.1 mmol/L Normal 3.3-5.1 [facility] Comment on above: Performed By: #### L 500.2500, L501.5200, L501.4021, L100.0100 ####[facility] [address] [place], [address] Basophil percentageOrdered B y: Yola Canales on 04-29-2025 Basophils/100 WBC (Bld) 0.4 % Normal 0-1 [facility] Comment on above: Performed By: #### L 500.2500, L501.5200, L501.4021, L100.0100 ####[facility] [address] [place], [address] Bedside Glucoseon 04-29-2025 FINGERSTICK GLU 164 mg/dL High 74-106 [facility] Comment on above: Result Comment: URSULA CHAMBERS OF PATIENT CARE PER NURSING PROTOCOL Performed By: #### L 501.080 ####[facility] [address] [place], [address] CBC W/Diff, Automatedon 04-17 Absolute Lymph 1.49 X10 3/uL Normal 0.83-4.51 [facility] Comment on above: Performed By: #### L 500.2500, L501.5200, L501.4021, L100.0100 ####[facility] [address] [place], [address] Absolute Neut 7.3 X10 3/uL Normal 2.0-7.7 [facility] Comment on above: Performed By: #### L 500.2500, L501.5200, L501.4021, L100.0100 ####[facility] [address] [place], [address] IG% 0.400 Normal 0.0-0.9 [facility] Comment on above: Result Comment: IG% - Immature Granulocytes (promyelocytes, myelocytes andmetamyelocytes) > 1% indicates that a LEFT SHIFT is Present. Performed By: #### L 500.2500, L501.5200, L501.4021, L100.0100 ####[facility] [address] [place], [address] Lymphocytes/100 WBC (Bld) 14.5 % Low 19-41 [facility] Comment on above: Performed By: #### L 500.2500, L501.5200, L501.4021, L100.0100 ####[facility] [address] [place], [address] Nucleated RBC (Bld) [#/Vol] 0 10*3/uL Normal 0-5 [facility] Comment on above: Performed By: #### L 500.2500, L501.5200, L501.4021, L100.0100 ####[facility] [address] [place], [address] RDW SD 44.9 fl High 35.1-43.9 [facility] Comment on above: Performed By: #### L 500.2500, L501.5200, L501.4021, L100.0100 ####[facility] [address] [place], [address] CTA Chest W/WO Contraston CTA Chest W/WO Contrast Normal [facility] Carbon dioxide, total [Moles /volume] in Central venous bloodOrdered By: Yola Canales on 04-29-2025 CO2 [Moles/Vol] 19.9 mmol/L Low 21.0-32.0 [facility] Comment on above: Performed By: #### L 500.2500, L501.5200, L501.4021, L100.0100 ####[facility] [address] [place], [address] Carotid Duplex Ultrasoundon 04-29-2025 Carotid Duplex Ultrasound Normal [facility] Chloride assayOrdered By: Arnulfo Canales on 04-29-2025 Chloride [Moles/Vol] 100 mmol/L Normal 98-108 [facility] Comment on above: Performed By: #### L 500.2500, L501.5200, L501.4021, L100.0100 ####[facility] [address] [place], [address] Echo Completeon 04-29-2025 Echo Complete Normal [facility] Emergency Department Summary on 04-29-2025 Emergency Department Summary Normal [facility] Eosinophil percentageOrdered By: Yola Canales on 04-29-2025 Eosinophils/100 WBC (Bld) 2.8 % Normal 0-5 [facility] Comment on above: Performed By: #### L 500.2500, L501.5200, L501.4021, L100.0100 ####[facility] [address] [place], [place], [address] Erythrocyte distribution wid th ratioOrdered By: Yola Canales on 04-29-2025 Erythrocyte distribution width (RBC) [Ratio] 14.9 % High 11.6-14.6 [facility] Comment on above: Performed By: #### L 500.2500, L501.5200, L501.4021, L100.0100 ####[facility] [address] [place], [place], [address] Erythrocyte distribution wid th standard deviationOrdered By: Yola Canales on 04-29-2025 Erythrocyte distribution width (RBC) [Ratio] 44.9 fl High 35.1-43.9 [facility] Glomerular filtration rate ( GFR) estimation/1.73 sq m using serum, plasma, or whole bOrdered By: Yola Canales on 04-29-2025 GFR/1.73 sq M.predicted among non-blacks MDRD (S/P/Bld) [Vol rate/Area] 61 mL/min/{1.73_m2} Normal >60 [facility] Comment on above: mL/min/1.73m2 CKD-EP I Creatinine Equation (2020) Result Comment: mL/m in/1.73m2 CKD-EPI Creatinine Equation (2020) Performed By: #### L 500.2500, L501.5200, L501.4021, L100.0100 ####[facility] [address] [place], [address] H AND P Exam - Hospitaliston 04-29-2025 H&P Exam - Hospitalist Normal [facility] Hemoglobin measurementOrdere d By: Yola Canales on 04-29-2025 Hemoglobin (Bld) [Mass/Vol] 14.3 g/dL Normal 13.0-16. 5 [facility] Comment on above: Performed By: #### L 500.2500, L501.5200, L501.4021, L100.0100 ####[facility] [address] [place], [address] Immature granulocytes/100 WB C Auto (Bld)Ordered By: Yola Canales on 04-29-2025 Immature granulocytes/100 WBC (Bld) 0.400 % 0.0-0.9 [facility] Comment on above: IG% - Immature Granu locytes (promyelocytes, myelocytes and metamyelocytes) > 1% indicates that a LEFT SHIFT is Present. L501.4021on 04-29-2025 Trop T High Sen 43 ng/L High <=22 [facility] Comment on above: Performed By: #### L 500.2500, L501.5200, L501.4021, L100.0100 ####[facility] [address] [place], [address] MCV (mean corpuscular volume ) determinationOrdered By: Yola Canales on 04-29-2025 MCV (RBC) [Entitic vol] 81.8 fL Normal 80-94 [facility] Comment on above: Performed By: #### L 500.2500, L501.5200, L501.4021, L100.0100 ####[facility] [address] [place], [address] Magnesiumon 04-29-2025 Magnesium [Mass/Vol] 2.3 mg/dL High 1.5-2.2 [facility] Comment on above: Performed By: #### L 500.2500, L501.5200, L501.4021, L100.0100 ####[facility] [address] [place], [address] Magnesium measurement (mass/ volume)Ordered By: Yola Canales on 04-29-2025 Magnesium (Unsp spec) [Mass/Vol] 2.3 mg/dL High 1.5-2.2 [facility] Mean corpuscular hemoglobin (MCH) determinationOrdered By: Yola Canales on 04-29-2025 MCH (RBC) [Entitic mass] 27.3 pg Normal 27.0-32.0 [facility] Comment on above: Performed By: #### L 500.2500, L501.5200, L501.4021, L100.0100 ####[facility] [address] [place], [address] Mean corpuscular hemoglobin concentration (MCHC) determinationOrdered By: Yola Canales on 04-29-2025 MCHC (RBC) [Mass/Vol] 33.4 g/dL Normal 32-36 [facility] Comment on above: Performed By: #### L 500.2500, L501.5200, L501.4021, L100.0100 ####[facility] [address] [place], [place], [address] Mean platelet volume determi nationOrdered By: Yola Canales on 04-29-2025 Platelet mean volume (Bld) [Entitic vol] 10.5 fL Normal 6.2-12.0 [facility] Comment on above: Performed By: #### L 500.2500, L501.5200, L501.4021, L100.0100 ####[facility] [address] [place], [address] Monocyte percentageOrdered B y: Yola Canales on 04-29-2025 Monocytes/100 WBC (Bld) 10.5 % High 0-10 [facility] Comment on above: Performed By: #### L 500.2500, L501.5200, L501.4021, L100.0100 ####[facility] [address] [place], [address] Neutrophil percentageOrdered By: Yola Canales on 04-29-2025 Neutrophils/100 WBC (Bld) 71.4 % High 47-70 [facility] Comment on above: Performed By: #### L 500.2500, L501.5200, L501.4021, L100.0100 ####[facility] [address] [place], [address] Nucleated red blood cell per centageOrdered By: Yola Canales on 04-29-2025 Nucleated RBC/100 WBC (Bld) [Ratio] 0 % 0-5 [facility] Platelet countOrdered By: Arnulfo Canales on 04-29-2025 Platelets (Bld) [#/Vol] 327 10*3/uL Normal 150-450 [facility] Comment on above: Performed By: #### L 500.2500, L501.5200, L501.4021, L100.0100 ####[facility] [address] [place], [address] Potassium measurement (mass/ volume)Ordered By: Yola Canales on 04-29-2025 Potassium (Unsp spec) [Mass/Vol] 4.1 mmol/L 3.3-5.1 [facility] Serum creatinine measurement (mass/volume)Ordered By: Yola Canales on 04-29-2025 Creatinine [Mass/Vol] 1.20 mg/dL Normal 0.70-1.20 [facility] Comment on above: Performed By: #### L 500.2500, L501.5200, L501.4021, L100.0100 ####[facility] [address] [place], [address] Serum glucose measurement (m ass/volume)Ordered By: Yola Canales on 04-29-2025 Glucose [Mass/Vol] 155 mg/dL High 70-99 [facility] Comment on above: Performed By: #### L 500.2500, L501.5200, L501.4021, L100.0100 ####[facility] [address] [place], [address] Serum or plasma calcium nahomy urement (mass/volume)Ordered By: Yola Canales on 04-29-2025 Calcium [Mass/Vol] 9.3 mg/dL Normal 7.6-11.0 [facility] Comment on above: Performed By: #### L 500.2500, L501.5200, L501.4021, L100.0100 ####[facility] [address] [place], [address] Serum or plasma urea nitroge n measurement (mass/volume)Ordered By: Yola Canales on 04-29-2025 Urea nitrogen [Mass/Vol] 24 mg/dL High 4-19 [facility] Comment on above: Performed By: #### L 500.2500, L501.5200, L501.4021, L100.0100 ####[facility] [address] [place], [address] Sodium levelOrdered By: Marcelo Canales on 04-29-2025 Sodium [Moles/Vol] 135 mmol/L Normal 133-145 [facility] Comment on above: Performed By: #### L 500.2500, L501.5200, L501.4021, L100.0100 ####[facility] [address] [place], [address] Troponin T HS 2 HRon 025 Trop T High Sen Normal <=22 [facility] Comment on above: Result Comment: DUPL ICATE ORDER Performed By: #### L 499.0042 ####[facility] [address] [place], [address] Trop T High Sen 42 ng/L High <=22 [facility] Comment on above: Performed By: #### L 499.0042 ####[facility] [address] [place], [address] Troponin T HS 4 HRon 025 Trop T High Sen Normal <=22 [facility] Comment on above: Result Comment: DUPL ICATE ORDER Performed By: #### L 499.0043 ####[facility] [address] [place], [address] Trop T High Sen 38 ng/L High <=22 [facility] Comment on above: Performed By: #### L 499.0043 ####[facility] [address] [place], [address] Troponin T.cardiac [Mass/vol ume] in Serum or Plasma by High sensitivity methodOrdered By: Yola Canales on 04-29-2025 Troponin T.cardiac High sensitivity method [Mass/Vol] 38 ng/L High <22 [facility] Troponin T.cardiac High sensitivity method [Mass/Vol] 42 ng/L High <22 [facility] Troponin T.cardiac High sensitivity method [Mass/Vol] 43 ng/L High <22 [facility] Comment on above: Delta: 49 on 5-2300 White blood cell (WBC) count Ordered By: Yola Canales on 04-29-2025 WBC (Bld) [#/Vol] 10.3 10*3/uL Normal 4.4-11.0 [facility] Comment on above: Performed By: #### L 500.2500, L501.5200, L501.4021, L100.0100 ####[facility] [address] [place], [address] GAGANDEEP w/ Reflex Mult Confirmon 04-10-2025 ANTI-DNA (DS)AB TNP Normal [facility] Comment on above: Performed By: #### L 505.7010, L503.6550, L3100.5450, L3300.1200, L4600.0100 ####[facility] [address] [place], [address] ANTI-SS-A TNP Normal [facility] Comment on above: Performed By: #### L 505.7010, L503.6550, L3100.5450, L3300.1200, L4600.0100 ####[facility] [address] [place], [address] ANTI-SS-B TNP Normal [facility] Comment on above: Performed By: #### L 505.7010, L503.6550, L3100.5450, L3300.1200, L4600.0100 ####[facility] [address] [place], [place], [phone] ANCAon 04-09-2025 Atypical pANCA <1:20 Normal Neg:<1:20 [facility] Comment on above: Result Comment: The atypical pANCA pattern has been observed in asignificant percentage of patients with ulcerative colitis,primary sclerosing cholangitis and autoimmune hepatitis. Performed By: #### L 505.7010, L503.6550, L3100.5450, L3300.1200, L4600.0100 ####[facility] [address] [place], [address] Cytoplasmic Ab <1:20 Normal Neg:<1:20 [facility] Comment on above: Performed By: #### L 505.7010, L503.6550, L3100.5450, L3300.1200, L4600.0100 ####[facility] [address] [place], [address] Perinuclear Ab. <1:20 Normal Neg:<1:20 [facility] Comment on above: Result Comment: The presence of positive fluorescence exhibiting P-ANCA orC-ANCA patterns alone is not specific for the diagnosis ofWegener's Granulomatosis (WG) or microscopic polyangiitis.Decisions about treatment should not be based solely onANCA IFA results. The [employer] Consensusrecommends follow up testing of positive sera with both NE-3 and MPO-ANCA enzyme immunoassays. As many as 5% serumsamples are positive only by EIA. Ref. AM J Clin Lchrzh4852;111:507-513. Performed By: #### L 505.7010, L503.6550, L3100.5450, L3300.1200, L4600.0100 ####[facility] [address] [place], [place], [address] CCP IgG Antibodieson 025 CCP IgG Ab. 8 units Normal 0-19 [facility] Comment on above: Result Comment: Nega tive <20 Weak positive 20 - 39 Moderate positive 40 - 59 Strong positive >59Performed at: [facility] [address] [id number] Director: Naresh Pruitt PhD, Phone: [phone] Performed By: #### L 505.7010, L503.6550, L3100.5450, L3300.1200, L4600.0100 ####[facility] [address] [place], [address] Ferritinon 04-08-2025 Ferritin [Mass/Vol] 44 ng/mL Normal 37-417 [facility] Comment on above: Performed By: #### L 505.7010, L503.6550, L3100.5450, L3300.1200, L4600.0100 ####[facility] [address] [place], [place], [address] Pulmonary Visit Reporton Pulmonary Visit Report Normal [facility] Rheumatoid Factoron 04-08-20 25 RHEUMATOID FAC < 10.0 Normal <15 [facility] Comment on above: Performed By: #### L 505.7010, L503.6550, L3100.5450, L3300.1200, L4600.0100 ####[facility] [address] [place], [address] Serum DNA double strand anti body assay (units/volume)Ordered By: ARSALAN Macario on 04-08-2025 DNA double strand Ab Qn (S) [facility] Comment on above: Test not performed Serum Scl-70 antibody assay (units/volume)Ordered By: ARSALAN Macario on 04-08-2025 SCL-70 extractable nuclear Ab Qn (S) [facility] Comment on above: Test not performed Serum classic neutrophil cyt oplasmic antibody assay (units/volume)Ordered By: ARSALAN Macario on 04-08-2025 Neutrophil cytoplasmic Ab.classic Qn (S) <1:20 titer Neg:<1:20 [facility] Serum or plasma cyclic citru llinated peptide IgG antibody assay (units/volume)Ordered By: ARSALAN Macario on 04-08-2025 Cyclic citrullinated peptide IgG Qn 8 units 0-19 [facility] Comment on above: Negative <20 Weak po sitive 20 - 39 Moderate positive 40 - 59 Strong positive >59Performed at: [facility] [id number] Director: Naresh Pruitt PhD, Phone: [phone] Serum or plasma ferritin harsha surement (mass/volume)Ordered By: ARSALAN Macario on 04-08-2025 Ferritin [Mass/Vol] 44 ng/mL 37-417 [facility] Serum perinuclear neutrophil cytoplasmic antibody titer by immunofluorescenceOrdered By: ARSALAN Macario on 04-08-2025 Neutrophil cytoplasmic Ab.perinuclear IF (S) [Titer] <1:20 titer Neg:<1:20 [facility] Comment on above: The presence of posi tive fluorescence exhibiting P-ANCA orC-ANCA patterns alone is not specific for the diagnosis ofWegener's Granulomatosis (WG) or microscopic polyangiitis.Decisions about treatment should not be based solely onANCA IFA results. The [employer] Consensusrecommends follow up testing of positive sera with both NE-3 and MPO-ANCA enzyme immunoassays. As many as 5% serumsamples are positive only by EIA. Ref. AM J Clin Noziqc6605;111:507-513. Serum rheumatoid factor dete ctionOrdered By: ARSALAN Macario on 04-08-2025 Rheumatoid factor Ql (S) < 10.0 IU/mL <15 [facility] 04-02-2025 [facility] Telephone (FAMPWS) FAISAL ALARCON ([id number]) 1945 M Date Time Provider Department 04/02/25 MATHIEU VIRGEN [facility] During your visit today, we recorded the following information about you: Janet King MA 04/02/2025 4:39 PM Signed Type of form: Prescription Assistance Form received via walk in When form is completed, Fax form to [facility] Form has been forwarded to Physician Desk: Dr. Virgen Prescription pended to go to [facility], as listed on form. JOSE ARMANDO Tee William J, MD 04/03/2025 10:45 AM Signed Jaylene Otoole LPN 04/03/2025 11:11 AM Signed Faxed application. 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 Ordered by cardiology - Blood-Glucose Sensor ([employer] G7 SENSOR) sayra Apply new sensor every [...] (1ST TIER UNIFINE PENTIPS) 31 gauge x 5/16" ndle 1 Each once daily. DX: E11.9 Insulin: Yes - Insulin Syringe-Needle U-100 1/2 mL 29 x 1/2" syrg 1 Each once daily. USE ONE [...] 06/06/2023 Diagno (more content not included)... Normal [facility] Chest without Contraston Chest without Contrast Normal [facility] 6 Minute Walk Teston 025 6 Minute Walk Test Normal [facility] FAISAL ALARCON ([id number]) 1945 M Date Time Provider Department 02/11/25 MATHIEU VIRGEN [facility] During your visit today, we recorded the following information about you: Jaylene Henley LPN 02/11/2025 9:10 AM Signed [facility] requesting DM note faxed to them documenting [...] (1ST TIER UNIFINE PENTIPS) 31 gauge x 5/16" ndle 1 Each once daily. DX: E11.9 Insulin: Yes - Insulin Syringe-Needle U-100 1/2 mL 29 x 1/2" syrg 1 Each once daily. USE ONE [...] 06/06/2023 Di (more content not included)... Normal [facility] CNPNon 02-06-2025 [facility]NP[facility] Telephone (FAMWS) FAISAL ALARCON ([id number]) 1945 Date Time Provider Department 02/06/25 MATHIEU VIRGEN [facility] During your visit today, we recorded the following information about you: Jaylene Henley LPN 02/06/2025 1:16 PM Signed Scan on 02/05/2025 4:36 PM by Provider, JERMAINE Jordan: Hematology Allergies As of Date: 02/06/2025 Noted Allergy Reaction AMOXICILLIN 05/11/2005 Comments: generalized erythema Date Reviewed: 01/22/2025 Reviewed by: Pricilla Kuhn LPN - Fully Assessed Reason for Visit: Results [95] Prescriptions as of 05/01/2025 - insulin glargine (BASAGLAR KWIKPEN U-100 INSULIN) [...] afternoon. Ordered by cardiology - Blood-Glucose Sensor ([employer] G7 SENSOR) sayra Apply new sensor every [...] (1ST TIER UNIFINE PENTIPS) 31 gauge x 5/16" ndle 1 Each once daily. DX: E11.9 Insulin: Yes - Insulin Syringe-Needle U-100 1/2 mL 29 x 1/2" syrg 1 Each once daily. USE ONE SYRINGE FOR EACH DOSE/1PER DAY, (E11.9, Z79.4) Diabetes mellitus type 2, insulin dependent. - Lancets (ACCU-CHEK SOFTCLIX LANCETS) lancets Test blood sugar(s) 1 times daily. Dx: 250.00. Insulin: Yes - COMPOUNDED PRESCRIPTION 1 Each twice daily. Accucheck compact test strips, dx-NIDDM Meds Comments as of 08/20/2013: Problem List As Of Date 02/06/2025 Noted Resolved OTHER PSORIASIS [L40.8] 05/11/2005 Essential [...] 06/06/2023 Diagnosed: 06/06/2023 Nonobstructive atherosclerosis of coronary luis* (more content not included)... Normal [facility] CBC W/Diff, Automatedon - PATH REV Reviewed Normal [facility] Comment on above: Result Comment: SEE REPORT IN PATIENT'S EMR AMENDED REPORT 02/05/25 1603 PATH REV previously reported as: January Performed By: #### L 100.0100 ####[facility] [address] [place], [address] CNOVon 01-26-2025 CNOV Office Visit (FAMPWS ) FAISAL ALARCON ([id number]) 1945 M Date Time Provider Department 01/26/25 2:40 PM MATHIEU VIRGEN FAMPWS During your visit today, we recorded [...] (1ST TIER UNIFINE PENTIPS) 31 gauge x 5/16" ndle 1 Each once daily. DX: E11.9 Insulin: Yes Insulin Syringe-Needle U-100 1/2 mL 29 x 1/2" syrg 1 Each once daily. USE ONE [...] Sister Cancer (more content not included)... Normal [facility] Cardiology Visit Reporton Cardiology Visit Report Normal [facility] CNOVon 01-22-2025 CNOV Office Visit (PODIWS ) FAISAL ALARCON ([id number]) 1945 M Date Time Provider Department 01/22/25 [...] every afternoon. Ordered by cardiology Blood-Glucose Sensor ([employer] G7 SENSOR) sayra Apply new sensor every [...] mouth once (more content not included)... [facility] Telephone ([facility]) FAISAL ALARCON ([id number]) 1945 Vikas Date Time Provider Department 01/22/25 MATHIEU VIRGEN During your visit today, we recorded the following information about you: Liyah Monroy RN 01/22/2025 8:23 AM S[address] Jacki with [facility] called in and need the diagnosis [...] (1ST TIER UNIFINE PENTIPS) 31 gauge x 5/16" ndle 1 Each once daily. DX: E11.9 Insulin: Yes - Insulin Syringe-Needle U-100 1/2 mL 29 x 1/2" syrg 1 Each once daily. USE ONE [...] Mild dehy (more content not included)... Normal [facility] XR FOOT 3V AP/LAT/OBL LTon 0 01-22-2025 [...] Stable 2nd through 4th metatarsal neck fractures [facility]ipe Caulker[facility] Date/Time: Jan 28 2025 7:42A Dictated by : DANELLE BHAGAT MD This examination was interpreted and the report reviewed and electronically signed by: DANELLE BHAGAT MD on Jan 28 2025 7:45AM EST [id number] Normal [facility] Absolute lymphocyte countOrd ered By: Mathieu Virgen on 01-21-2025 Lymphocytes Auto (Unsp spec) [#/Vol] 1.71 10*3/uL 0.83-4.51 [facility] Absolute neutrophil countOrd ered By: Mathieu Virgen on 01-21-2025 Neutrophils (Bld) [#/Vol] 7.3 10*3/uL 2.0-7.7 [facility] Automated lymphocyte count a s percentage of total leukocytesOrdered By: Mathieu Virgen on 01-21-2025 Lymphocytes/100 WBC Auto (Unsp spec) 16.5 % Low 19-41 [facility] Basophil percentageOrdered B y: Mathieu Virgen on 01-21-2025 Basophils/100 WBC (Bld) 0.3 % 0-1 [facility] Eosinophil percentageOrdered By: Mathieu Virgen on 01-21-2025 Eosinophils/100 WBC (Bld) 2.4 % 0-5 [facility] Erythrocyte distribution wid th ratioOrdered By: Mathieu Virgen on 01-21-2025 Erythrocyte distribution width (RBC) [Ratio] 15.9 % High 11.6-14.6 [facility] Erythrocyte distribution wid th standard deviationOrdered By: Mathieu Virgen on 01-21-2025 Erythrocyte distribution width (RBC) [Ratio] 47.5 fl High 35.1-43.9 [facility] Hematocrit Auto (Bld) [Volum e fraction]Ordered By: Mathieu Virgen on 01-21-2025 Hematocrit (Bld) [Volume fraction] 43.5 % 40-54 [facility] Hemoglobin measurementOrdere d By: Mathieu Virgen on 01-21-2025 Hemoglobin (Bld) [Mass/Vol] 14.4 g/dL 13.0-16. 5 [facility] Immature granulocytes/100 WB C Auto (Bld)Ordered By: Mathieu Virgen on 01-21-2025 Immature granulocytes/100 WBC (Bld) 0.500 % 0.0-0.9 [facility] Comment on above: IG% - Immature Granu locytes (promyelocytes, myelocytes and metamyelocytes) > 1% indicates that a LEFT SHIFT is Present. MCV (mean corpuscular volume ) determinationOrdered By: Mathieu Virgen on 01-21-2025 MCV (RBC) [Entitic vol] 81.5 fL 80-94 [facility] Mean corpuscular hemoglobin (MCH) determinationOrdered By: Mathieu Virgen on 01-21-2025 MCH (RBC) [Entitic mass] 27.0 pg 27.0-32.0 [facility] Mean corpuscular hemoglobin concentration (MCHC) determinationOrdered By: Mathieu Virgen on 01-21-2025 MCHC (RBC) [Mass/Vol] 33.1 g/dL 32-36 [facility] Mean platelet volume determi nationOrdered By: Mathieu Virgen on 01-21-2025 Platelet mean volume (Bld) [Entitic vol] 10.6 fL 6.2-12.0 [facility] Monocyte percentageOrdered B y: Mathieu Virgen on 01-21-2025 Monocytes/100 WBC (Bld) 10.2 % High 0-10 [facility] Neutrophil percentageOrdered By: Mathieu Virgen on 01-21-2025 Neutrophils/100 WBC (Bld) 70.1 % High 47-70 [facility] Nucleated red blood cell per centageOrdered By: Mathieu Virgen on 01-21-2025 Nucleated RBC/100 WBC (Bld) [Ratio] 0 % 0-5 [facility] Platelet countOrdered By: Shannon Virgen on 01-21-2025 Platelets (Bld) [#/Vol] 241 10*3/uL 150-450 [facility] Pulmonary Visit Reporton Pulmonary Visit Report Normal [facility] RBC Auto (Bld) [#/Vol]Ordere d By: Mathieu Virgen on 01-21-2025 RBC (Bld) [#/Vol] 5.34 10*6/uL 4.6-6.2 [facility] Review by pathologistOrdered By: Mathieu Virgen on 01-21-2025 Pathologist review Rey (Unsp spec) [Interp] Tamara bernard [facility] Pathologist review Rey (Unsp spec) [Interp] Reviewed [facility] Comment on above: Previous reported re sult: Tamara bernard Edited by: IRON on 02/05/25:1603SEE REPORT IN PATIENT'S EMR AMENDED REPORT 02/05/25 1603 PATH REV previously reported as: Tamara bernard White blood cell (WBC) count Ordered By: Mathieu Virgen on 01-21-2025 WBC (Bld) [#/Vol] 10.4 10*3/uL 4.4-11.0 [facility] Emergency Department Summary on 01-20-2025 Emergency Department Summary Normal [facility] L499.0042on 01-20-2025 Trop T High Sen 51 ng/L High <=22 [facility] Comment on above: Order Comment: *THIS IS ACTUALLY 4 HOUR TROP* Result Comment: Crit ical Result(s) Called at: by:??Results read back bysanh. Performed By: #### L 499.0042 ####[facility] [address] [place], [place], [address] L499.0043on 01-20-2025 Trop T High Sen 53 ng/L High <=22 [facility] Comment on above: Order Comment: *THIS IS ACTUALLY 2 HOUR TROP* Result Comment: Crit ical Result(s) Called at: 0349 by: LAUREN DAVIS Results read back by same. AMENDED REPORT 01/20/25 2931 Trop T HS 4HR previously reported as: 51 H ng/L Performed By: #### L 499.0043 ####[facility] [address] [place], [place], [address] Troponin T.cardiac [Mass/vol ume] in Serum or Plasma by High sensitivity methodOrdered By: Abraham Tierney on 01-20-2025 Troponin T.cardiac High sensitivity method [Mass/Vol] 51 ng/L High <22 [facility] Comment on above: Critical Result(s) C alled at: by: Results read back by same. Troponin T.cardiac High sensitivity method [Mass/Vol] 53 ng/L High <22 [facility] Comment on above: Critical Result(s) C alled at: 3179 by: LAUREN LOPEZ TO DAGO DAVIS Results read back by same.Previous reported result: 51 ng/LEdited by: AUTOINS on 01/20/25:0351 AMENDED REPORT 01/20/25350 Trop T HS 4HR previously reported as: 51 H ng/L 12 Lead EKGon 01-19-2025 12 Lead EKG Normal [facility] Absolute lymphocyte countOrd ered By: Abraham Tierney on 01-19-2025 Lymphocytes Auto (Unsp spec) [#/Vol] 2.50 10*3/uL 0.83-4.51 [facility] Absolute neutrophil countOrd ered By: Abraham Tierney on 01-19-2025 Neutrophils (Bld) [#/Vol] 8.3 10*3/uL High 2.0-7.7 [facility] Anion gap in Serum or Plasma Ordered By: Abraham Tierney on 01-19-2025 Anion gap [Moles/Vol] 14 mmol/L 5-15 [facility] Automated blood erythrocyte countOrdered By: Abraham Tierney on 01-19-2025 RBC (Bld) [#/Vol] 5.58 10*6/uL Normal 4.6-6.2 [facility] Comment on above: Performed By: #### L 500.2500, L501.4021, L100.0100 ####[facility] [address] [place], [place], [address] Automated blood hematocrit ( percentage)Ordered By: Abraham Tierney on 01-19-2025 Hematocrit (Bld) [Volume fraction] 44.8 % Normal 40-54 [facility] Comment on above: Performed By: #### L 500.2500, L501.4021, L100.0100 ####[facility] [address] [place], [address] Automated lymphocyte count a s percentage of total leukocytesOrdered By: Abraham Tierney on 01-19-2025 Lymphocytes/100 WBC Auto (Unsp spec) 19.7 % 19-41 [facility] BUN/creatinine ratioOrdered By: Abraham Tierney on 01-19-2025 Urea nitrogen/Creatinine [Mass ratio] 25.0 mg/mg High 10-20 [facility] Basic Metabolic Profile (BMP )on 01-19-2025 BUN/CRE 25.0 RATIO High - [facility] Comment on above: Performed By: #### L 500.2500, L501.4021, L100.0100 ####[facility] [address] [place], [address] ECRCL 64.50 ml/min Normal 50-250 [facility] Comment on above: Performed By: #### L 500.2500, L501.4021, L100.0100 ####[facility] [address] [place], [address] GAP 14 Normal 5-15 [facility] Comment on above: Performed By: #### L 500.2500, L501.4021, L100.0100 ####[facility] [address] [place], [address] Potassium [Moles/Vol] 3.9 mmol/L Normal 3.3-5.1 [facility] Comment on above: Performed By: #### L 500.2500, L501.4021, L100.0100 ####[facility] [address] [place], [address] Basophil percentageOrdered B y: Abraham Tierney on 01-19-2025 Basophils/100 WBC (Bld) 0.5 % Normal 0-1 [facility] Comment on above: Performed By: #### L 500.2500, L501.4021, L100.0100 ####[facility] [address] [place], [address] CBC W/Diff, Automatedon 05-0 5-2025 Absolute Lymph 2.50 X10 3/uL Normal 0.83-4.51 [facility] Comment on above: Performed By: #### L 500.2500, L501.4021, L100.0100 ####[facility] [address] [place], [address] Absolute Neut 8.3 X10 3/uL High 2.0-7.7 [facility] Comment on above: Performed By: #### L 500.2500, L501.4021, L100.0100 ####[facility] [address] [place], [address] IG% 0.500 Normal 0.0-0.9 [facility] Comment on above: Result Comment: IG% - Immature Granulocytes (promyelocytes, myelocytes andmetamyelocytes) > 1% indicates that a LEFT SHIFT is Present. Performed By: #### L 500.2500, L501.4021, L100.0100 ####[facility] [address] [place], [address] Lymphocytes/100 WBC (Bld) 19.7 % Normal 19-41 [facility] Comment on above: Performed By: #### L 500.2500, L501.4021, L100.0100 ####[facility] [address] [place], [address] Nucleated RBC (Bld) [#/Vol] 0 10*3/uL Normal 0-5 [facility] Comment on above: Performed By: #### L 500.2500, L501.4021, L100.0100 ####[facility] [address] [place], [address] RDW SD 46.3 fl High 35.1-43.9 [facility] Comment on above: Performed By: #### L 500.2500, L501.4021, L100.0100 ####[facility] [address] [place], [address] Carbon dioxide, total [Moles /volume] in Central venous bloodOrdered By: Abraham Tierney on 01-19-2025 CO2 [Moles/Vol] 22.5 mmol/L Normal 21.0-32.0 [facility] Comment on above: Performed By: #### L 500.2500, L501.4021, L100.0100 ####[facility] [address] [place], [address] Chest 1 View (Portable)on Chest 1 View (Portable) Normal [facility] Chloride assayOrdered By: Pineda Tierney on 01-19-2025 Chloride [Moles/Vol] 98 mmol/L Normal 98-108 [facility] Comment on above: Performed By: #### L 500.2500, L501.4021, L100.0100 ####[facility] [address] [place], [address] Eosinophil percentageOrdered By: Abraham Tierney on 01-19-2025 Eosinophils/100 WBC (Bld) 2.7 % Normal 0-5 [facility] Comment on above: Performed By: #### L 500.2500, L501.4021, L100.0100 ####[facility] [address] [place], [address] Erythrocyte distribution wid th ratioOrdered By: Abraham Tierney on 01-19-2025 Erythrocyte distribution width (RBC) [Ratio] 16.0 % High 11.6-14.6 [facility] Comment on above: Performed By: #### L 500.2500, L501.4021, L100.0100 ####[facility] [address] [place], [address] Erythrocyte distribution wid th standard deviationOrdered By: Abraham Tierney on 01-19-2025 Erythrocyte distribution width (RBC) [Ratio] 46.3 fl High 35.1-43.9 [facility] Glomerular filtration rate ( GFR) estimation/1.73 sq m using serum, plasma, or whole bOrdered By: Abraham Tierney on 01-19-2025 GFR/1.73 sq M.predicted among non-blacks MDRD (S/P/Bld) [Vol rate/Area] 58 mL/min/{1.73_m2} Low >60 [facility] Comment on above: mL/min/1.73m2 CKD-EP I Creatinine Equation (2020) Result Comment: mL/m in/1.73m2 CKD-EPI Creatinine Equation (2020) Performed By: #### L 500.2500, L501.4021, L100.0100 ####[facility] [address] [place], [address] Hemoglobin measurementOrdere d By: Abraham Tierney on 01-19-2025 Hemoglobin (Bld) [Mass/Vol] 15.0 g/dL Normal 13.0-16. 5 [facility] Comment on above: Performed By: #### L 500.2500, L501.4021, L100.0100 ####[facility] [address] [place], [address] Immature granulocytes/100 WB C Auto (Bld)Ordered By: Abraham Tierney on 01-19-2025 Immature granulocytes/100 WBC (Bld) 0.500 % 0.0-0.9 [facility] Comment on above: IG% - Immature Granu locytes (promyelocytes, myelocytes and metamyelocytes) > 1% indicates that a LEFT SHIFT is Present. L501.4021on 01-19-2025 Trop T High Sen 49 ng/L High <=22 [facility] Comment on above: Performed By: #### L 500.2500, L501.4021, L100.0100 ####[facility] [address] [place], [address] MCV (mean corpuscular volume ) determinationOrdered By: Abraham Tierney on 01-19-2025 MCV (RBC) [Entitic vol] 80.3 fL Normal 80-94 [facility] Comment on above: Performed By: #### L 500.2500, L501.4021, L100.0100 ####[facility] [address] [place], [address] Mean corpuscular hemoglobin (MCH) determinationOrdered By: Abraham Tierney on 01-19-2025 MCH (RBC) [Entitic mass] 26.9 pg Low 27.0-32.0 [facility] Comment on above: Performed By: #### L 500.2500, L501.4021, L100.0100 ####[facility] [address] [place], [address] Mean corpuscular hemoglobin concentration (MCHC) determinationOrdered By: Abraham Tierney on 01-19-2025 MCHC (RBC) [Mass/Vol] 33.5 g/dL Normal 32-36 [facility] Comment on above: Performed By: #### L 500.2500, L501.4021, L100.0100 ####[facility] [address] [place], [address] Mean platelet volume determi nationOrdered By: Abraham Tierney on 01-19-2025 Platelet mean volume (Bld) [Entitic vol] 10.9 fL Normal 6.2-12.0 [facility] Comment on above: Performed By: #### L 500.2500, L501.4021, L100.0100 ####[facility] [address] [place], [address] Monocyte percentageOrdered B y: Abraham Tierney on 01-19-2025 Monocytes/100 WBC (Bld) 11.4 % High 0-10 [facility] Comment on above: Performed By: #### L 500.2500, L501.4021, L100.0100 ####[facility] [address] [place], [address] Neutrophil percentageOrdered By: Abraham Tierney on 01-19-2025 Neutrophils/100 WBC (Bld) 65.2 % Normal 47-70 [facility] Comment on above: Performed By: #### L 500.2500, L501.4021, L100.0100 ####[facility] [address] [place], [address] Nucleated red blood cell per centageOrdered By: Abraham Tierney on 01-19-2025 Nucleated RBC/100 WBC (Bld) [Ratio] 0 % 0-5 [facility] Platelet countOrdered By: Pineda Tierney on 01-19-2025 Platelets (Bld) [#/Vol] 273 10*3/uL Normal 150-450 [facility] Comment on above: Performed By: #### L 500.2500, L501.4021, L100.0100 ####[facility] [address] [place], [address] Potassium measurement (mass/ volume)Ordered By: Abraham Tierney on 01-19-2025 Potassium (Unsp spec) [Mass/Vol] 3.9 mmol/L 3.3-5.1 [facility] Serum creatinine measurement (mass/volume)Ordered By: Abraham Tierney on 01-19-2025 Creatinine [Mass/Vol] 1.25 mg/dL High 0.70-1.20 [facility] Comment on above: Performed By: #### L 500.2500, L501.4021, L100.0100 ####[facility] [address] [place], [address] Serum glucose measurement (m ass/volume)Ordered By: Abraham Tierney on 01-19-2025 Glucose [Mass/Vol] 156 mg/dL High 70-99 [facility] Comment on above: Performed By: #### L 500.2500, L501.4021, L100.0100 ####[facility] [address] [place], [address] Serum or plasma calcium nahomy urement (mass/volume)Ordered By: Abraham Tierney on 01-19-2025 Calcium [Mass/Vol] 9.9 mg/dL Normal 7.6-11.0 [facility] Comment on above: Performed By: #### L 500.2500, L501.4021, L100.0100 ####[facility] [address] [place], [address] Serum or plasma urea nitroge n measurement (mass/volume)Ordered By: Abraham Tierney on 01-19-2025 Urea nitrogen [Mass/Vol] 31 mg/dL High 4-19 [facility] Comment on above: Performed By: #### L 500.2500, L501.4021, L100.0100 ####[facility] [address] [place], [address] Sodium levelOrdered By: Abraham Tierney on 01-19-2025 Sodium [Moles/Vol] 134 mmol/L Normal 133-145 [facility] Comment on above: Performed By: #### L 500.2500, L501.4021, L100.0100 ####[facility] [address] [place], [address] Troponin T.cardiac [Mass/vol ume] in Serum or Plasma by High sensitivity methodOrdered By: Abraham Tierney on 01-19-2025 Troponin T.cardiac High sensitivity method [Mass/Vol] 49 ng/L High <22 [facility] White blood cell (WBC) count Ordered By: Abraham Tierney on 01-19-2025 WBC (Bld) [#/Vol] 12.7 10*3/uL High 4.4-11.0 [facility] Comment on above: Performed By: #### L 500.2500, L501.4021, L100.0100 ####[facility] [address] [place], [address] CNOVon 01-12-2025 [facility] FAISAL ALARCON ([id number]) 1945 M Date Time Provider Department 01/12/25 5:00 PM MATHIEU VIRGEN During your visit today, [...] (1ST TIER UNIFINE PENTIPS) 31 gauge x 5/16" ndle 1 Each once daily. DX: E11.9 Insulin: Yes Insulin Syringe-Needle U-100 1/2 mL 29 x 1/2" syrg 1 Each once daily. USE ONE [...] pk-yrs) Ty (more content not included)... Normal [facility] CNPSharlene 01-12-2025 [facility] FAISAL ALARCON ([id number]) 1945 M Date Time Provider Department 01/12/25 MATHIEU VIRGEN [facility] During your visit today, we recorded [...] to schedulers for Podiatry consult. JOSE ARMANDO RamírezJose schulzReanna 01/13/2025 8:28 AM Signed Attempted to contact daughter, Farida, but no answer and voicemail full. Should she call back, please schedule podiatry consult. AiSung schulzie 01/15/2025 8:44 AM Signed Spoke with daughter to schedule podiatry appointments but she has questions re: what the environment coordinator would do. Transferred to clinical for assistance. [...] [S92.909A] Order(s):CONSULT TO PODIATRY [9034] Order #: [id number]: 1 FUTURE POST - OP SHOE [[id number]] Order #: [id number] Prescriptions as of 01/16/2025 - carvedilol (COREG) [...] afternoon. Ordered by cardiology - Blood-Glucose Sensor ([employer] G7 SENSOR) sayra Apply new sensor every [...] (1ST TIER UNIFINE PENTIPS) 31 gauge x 5/16" ndle 1 Each once daily. DX: E11.9 Insulin: Yes - Insulin Syringe-Needle U-100 1/2 mL 29 x 1/2" syrg 1 Each once daily. USE ONE SYRINGE FOR EACH DOSE/1PER DAY, (E11.9, Z79.4) Diabetes mellitus type 2, insulin dependent. - Lancets (ACCU-CHEK SOFTCLIX LANCETS) lancets (more content not included)... Normal [facility] XR FOOT 3V AP/LAT/OBL LTon 0 01-12-2025 [...] joint. 3. Small plantar calcaneal heel spur. Pipe Caulker: PSCB Transcribe Date/Time: Jan 12 2025 7:00P Dictated by : NARDA REEVES MD This examination was interpreted and the report reviewed and electronically signed by: NARDA REEVES MD on Jan 12 2025 7:02PM EST [id number] Normal [facility] XR Foot - left AP and Latera l and obliqueon 04-28-2025 IMPRESSION: 1. Acute appearing fracture through the distal neck of the second third and fourth metatarsals. 2. Mild bunion deformity with mild degenerative changes at the first MTP joint. 3. Small plantar calcaneal heel spur. Pipe Caulker: PSCB Transcribe Date/Time: Jan 12 2025 7:00P Dictated by : NARDA REEVES MD This examination was interpreted and the report reviewed and electronically signed by: NARDA REEVES MD on Jan 12 2025 7:02PM [facility] DIVISION OF RADIOLOGY * * *Final [...] of the forefoot. DIVISION OF RADIOLOGY Provider, [facility] - 01/12/2025 * * *Final Report* * [...] joint. 3. Small plantar calcaneal heel spur. Pipe Caulker: PSCB Transcribe Date/Time: Jan 12 2025 7:00P Dictated by : NARDA REEVES MD This examination was interpreted and the report reviewed and electronically signed by: NARDA REEVES MD on Jan 12 2025 7:02PM EST [facility] Radiology Study observation (narrative) [facility] XR Foot - left AP and Latera l and obliqueOrdered By: [facility]cf Provider on 01-12-2025 [facility] Cardiology Visit Reporton Cardiology Visit Report Normal [facility] CNPNon 12-03-2024 CNPN Telephone ([facility]) FAISAL ALARCON ([id number]) 1945 M Date Time Provider Department 12/03/24 [facility] During your visit today, we recorded the following information about you: Aly Mandel MA 12/03/2024 6:43 PM Signed Received PA from pharmacy for Fiasp Flextouch. Tried to complete through covermymeds but was instructed to call [employer] at . Spoke to the [facility] who will submit info to pharmacy for PA. JOSE ARMANDO Starr Stephanie, RN 12/04/2024 11:18 AM Signed Medardo from [employer] calls and reports that patient's medication is approved until 09/06/2025. Medardo is faxing over approval letter. NILDA Colbert Janice, LPN 12/04/2024 11:53 AM Signed Rec'd and in scanned documents. Pharmacy notified. Tonia Ellis LPN 12/04/2024 4:21 PM Signed Pt and caregiver notified via [employer] Allergies As of Date: 12/03/2024 Noted Allergy [...] (1ST TIER UNIFINE PENTIPS) 31 gauge x 5/16" ndle 1 Each once daily. DX: E11.9 Insulin: Yes - Insulin Syringe-Needle U-100 1/2 mL 29 x 1/2" syrg 1 Each once daily. USE ONE [...] [E66.812] 01/31/2021 (more content not included)... Normal [facility] CNOVon 12-02-2024 CNOV Office Visit ([facility] ) FAISAL ALARCON ([id number]) 1945 M Date Time Provider Department 12/02/24 3:40 PM MATHIEU VIRGEN [facility] During your visit today, we recorded the following information about you: Pulse Blood pressure Weight Height 78/minute 92/54 123.8 kg 1.854 m Mahtieu Virgen MD 12/02/2024 5:17 PM Signed Patient presents with: Follow Up HPI: Patient presents today for office visit for medication reconciliation per insurance. Labs done. Reviewed overall ar stable. His bmp is stable with gfr of 62. A1c is 7.0. lipids are good. White count is slightly up at 12. Has been following with [facility]. Seeing pulmonary. Uro: follows with [...] every afternoon. Ordered by cardiology Blood-Glucose Sensor ([employer] G7 SENSOR) sayra Apply new sensor every [...] day before meals. Getting through [facility] insulin glargine (BASAGLAR KWIKPEN U-100 INSULIN) 100 unit/mL (3 mL) Inject 90 Units subcutaneously daily at bedtime. aspirin 81 mg chewable tablet Take 81 mg by mouth once daily. insulin needles, DISPOSABLE, (1ST TIER UNIFINE PENTIPS) 31 gauge x 5/16" ndle 1 Each once daily. DX: E11.9 Insulin: Yes Insulin Syringe-Needle U-100 1/2 mL 29 x 1/2" syrg 1 Each once daily. USE ONE SYRINGE FOR EACH DOSE/1PER DAY, (E11.9, Z79.4) Diabetes mellitus type 2, insulin dependent. Lancets (ACCU-CHEK SOFTCLIX LANCETS) lancets Test blood sugar(s) 1 times daily. Dx: 250.00. Insulin: Yes COMPOUNDED PRESCRIPTION 1 Each twice daily. Accucheck compact test strips, dx-NIDDM flecainide (TAMBOCOR) 150 mg tablet Take 1 tablet by mouth every 12 hours. 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 [...] testing as (more content not included)... Normal [facility] CBC-Complete Blood Cnt No Di ffon 11-29-2024 Erythrocyte distribution width (RBC) [Ratio] 17.0 % High 11.6-14.6 [facility] Comment on above: Performed By: #### L 500.4050, L502.0250, L500.4100, L501.9985, L100.0500 ####[facility] [address] [place], [address] Hematocrit (Bld) [Volume fraction] 44.1 % Normal 40-54 [facility] Comment on above: Performed By: #### L 500.4050, L502.0250, L500.4100, L501.9985, L100.0500 ####[facility] [address] [place], [address] Hemoglobin (Bld) [Mass/Vol] 14.6 g/dL Normal 13.0-16. 5 [facility] Comment on above: Performed By: #### L 500.4050, L502.0250, L500.4100, L501.9985, L100.0500 ####[facility] [address] [place], [address] MCH (RBC) [Entitic mass] 26.6 pg Low 27.0-32.0 [facility] Comment on above: Performed By: #### L 500.4050, L502.0250, L500.4100, L501.9985, L100.0500 ####[facility] [address] [place], [address] MCHC (RBC) [Mass/Vol] 33.1 g/dL Normal 32-36 [facility] Comment on above: Performed By: #### L 500.4050, L502.0250, L500.4100, L501.9985, L100.0500 ####[facility] [address] [place], [address] MCV (RBC) [Entitic vol] 80.3 fL Normal 80-94 [facility] Comment on above: Performed By: #### L 500.4050, L502.0250, L500.4100, L501.9985, L100.0500 ####[facility] [address] [place], [address] Platelet mean volume (Bld) [Entitic vol] 11.2 fL Normal 6.2-12.0 [facility] Comment on above: Performed By: #### L 500.4050, L502.0250, L500.4100, L501.9985, L100.0500 ####[facility] [address] [place], [address] Platelets (Bld) [#/Vol] 282 10*3/uL Normal 150-450 [facility] Comment on above: Performed By: #### L 500.4050, L502.0250, L500.4100, L501.9985, L100.0500 ####[facility] [address] [place], [address] RBC (Bld) [#/Vol] 5.49 10*6/uL Normal 4.6-6.2 [facility] Comment on above: Performed By: #### L 500.4050, L502.0250, L500.4100, L501.9985, L100.0500 ####[facility] [address] [place], [address] RDW SD 49.3 fl High 35.1-43.9 [facility] Comment on above: Performed By: #### L 500.4050, L502.0250, L500.4100, L501.9985, L100.0500 ####[facility] [address] [place], [address] WBC (Bld) [#/Vol] 12.1 10*3/uL High 4.4-11.0 [facility] Comment on above: Performed By: #### L 500.4050, L502.0250, L500.4100, L501.9985, L100.0500 ####[facility] [address] [place], [address] Erythrocyte distribution wid th ratioOrdered By: Mathieu Virgen on 11-29-2024 Erythrocyte distribution width (RBC) [Ratio] 17.0 % High 11.6-14.6 [facility] Erythrocyte distribution wid th standard deviationOrdered By: Mathieu Virgen on 11-29-2024 Erythrocyte distribution width (RBC) [Entitic vol] 49.3 fL High 35.1-43.9 [facility] Erythrocyte distribution width (RBC) [Ratio] 49.3 fl High 35.1-43.9 [facility] Hematocrit Auto (Bld) [Volum e fraction]Ordered By: Mathieu Virgen on 11-29-2024 Hematocrit (Bld) [Volume fraction] 44.1 % 40-54 [facility] Hemoglobin measurementOrdere d By: Mathieu Virgen on 11-29-2024 Hemoglobin (Bld) [Mass/Vol] 14.6 g/dL 13.0-16. 5 [facility] MCV (mean corpuscular volume ) determinationOrdered By: Mathieu Virgen on 11-29-2024 MCV (RBC) [Entitic vol] 80.3 fL 80-94 [facility] Mean corpuscular hemoglobin (MCH) determinationOrdered By: Mathieu Virgen on 11-29-2024 MCH (RBC) [Entitic mass] 26.6 pg Low 27.0-32.0 [facility] Mean corpuscular hemoglobin concentration (MCHC) determinationOrdered By: Mathieu Virgen on 11-29-2024 MCHC (RBC) [Mass/Vol] 33.1 g/dL 32-36 [facility] Mean platelet volume determi nationOrdered By: Mathieu Virgen on 11-29-2024 Platelet mean volume (Bld) [Entitic vol] 11.2 fL 6.2-12.0 [facility] Platelet countOrdered By: Shannon Virgen on 11-29-2024 Platelets (Bld) [#/Vol] 282 10*3/uL 150-450 [facility] RBC Auto (Bld) [#/Vol]Ordere d By: Mathieu Virgen on 11-29-2024 RBC (Bld) [#/Vol] 5.49 10*6/uL 4.6-6.2 [facility] White blood cell (WBC) count Ordered By: Mathieu Virgen on 11-29-2024 WBC (Bld) [#/Vol] 12.1 10*3/uL High 4.4-11.0 [facility] Albumin DL <= 20 mg/L (U) [M ass/Vol]Ordered By: Mathieu Virgen on 11-28-2024 Urine Random Microalbumin 17.0 mg/L NO RANGE EST. [facility] Anion gap in Serum or Plasma Ordered By: Mathieu Virgen on 11-28-2024 Anion gap [Moles/Vol] 13 mmol/L 5- [facility] BUN/creatinine ratioOrdered By: Mathieu Virgen on 11-28-2024 Urea nitrogen/Creatinine [Mass ratio] 19.6 mg/mg 10- [facility] Bilirubin, totalOrdered By: Mathieu Virgen on 11-28-2024 Bilirubin [Mass/Vol] 0.49 mg/dL 0.00-1.30 [facility] FA[facility]AL ALARCON ([id number]) 1945 M Date Time Provider Department 11/28/24 MATHIEU VIRGEN [facility] During your visit today, we recorded the following information about you: Miley Pemberton MA 11/28/2024 4:58 PM Signed Pt had blood work done. View External Labs - Chemistry [ID [id number]] View External Labs - Miscellaneous Lab [ID [id number]] View External Labs - Chemistry [ID [id number]] JOSE ARMANDO Corrales William J, MD 11/29/2024 9:19 AM Signed Reviewed. Coming on appt Allergies As of Date: 11/28/2024 Noted [...] afternoon. Ordered by cardiology - Blood-Glucose Sensor ([employer] G7 SENSOR) sayra Apply new sensor every [...] times a day before meals. Getting through [facility] - simvastatin (ZOCOR) 40 mg tablet Take 1 tablet by mouth daily at bedtime. - flecainide (TAMBOCOR) 150 mg tablet Take 1 tablet by mouth every 12 hours. 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 - aspirin 81 mg chewable tablet Take 81 mg by mouth once daily. - insulin needles, DISPOSABLE, (1ST TIER UNIFINE PENTIPS) 31 gauge x 5/16" ndle 1 Each once daily. DX: E11.9 Insulin: Yes - Insulin Syringe-Needle U-100 1/2 mL 29 x 1/2" syrg 1 Each once daily. USE ONE [...] fibrillation [ (more content not included)... Normal [facility] Calculated very low density lipoprotein (VLDL) cholesterol measurementOrdered By: Mathieu Virgen on 11-28-2024 Calculated very low density lipoprotein (VLDL) cholesterol measurement 22 mg/dL 5-40 [facility] VLDL Cholesterol 22 mg/dL 5-40 [facility] Carbon dioxide, total [Moles /volume] in Central venous bloodOrdered By: Mathieu Virgen on 11-28-2024 CO2 [Moles/Vol] 21.4 mmol/L 21.0-32.0 [facility] Chloride assayOrdered By: Shannon Virgen on 11-28-2024 Chloride [Moles/Vol] 101 mmol/L 98-108 [facility] Comprehensive Metabolic Prof ilon 11-28-2024 Albumin [Mass/Vol] 4.0 g/dL Normal 3.4-4.8 [facility] Comment on above: Order Comment: CBC Performed By: #### L 500.4050, L502.0250, L500.4100, L501.9985, L100.0500 ####[facility] [address] [place], [place], [id number] Albumin/Globulin [Mass ratio] 1.2 {ratio} Normal 0.9-2.4 [facility] Comment on above: Order Comment: CBC Performed By: #### L 500.4050, L502.0250, L500.4100, L501.9985, L100.0500 ####[facility] [address] [place], [address] ALK PHOS 110 U/L Normal 40-129 [facility] Comment on above: Order Comment: CBC Performed By: #### L 500.4050, L502.0250, L500.4100, L501.9985, L100.0500 ####[facility] [address] [place], [address] ALT [Catalytic activity/Vol] 15 U/L Normal <=46 [facility] Comment on above: Order Comment: CBC Performed By: #### L 500.4050, L502.0250, L500.4100, L501.9985, L100.0500 ####[facility] [address] [place], [address] AST [Catalytic activity/Vol] 19 U/L Normal <=37 [facility] Comment on above: Order Comment: CBC Performed By: #### L 500.4050, L502.0250, L500.4100, L501.9985, L100.0500 ####[facility] [address] [place], [address] Bilirubin [Mass/Vol] 0.49 mg/dL Normal 0.00-1.30 [facility] Comment on above: Order Comment: CBC Performed By: #### L 500.4050, L502.0250, L500.4100, L501.9985, L100.0500 ####[facility] [address] [place], [address] BUN/CRE 19.6 RATIO Normal 10-20 [facility] Comment on above: Order Comment: CBC Performed By: #### L 500.4050, L502.0250, L500.4100, L501.9985, L100.0500 ####[facility] [address] [place], [address] Calcium [Mass/Vol] 9.3 mg/dL Normal 7.6-11.0 [facility] Comment on above: Order Comment: CBC Performed By: #### L 500.4050, L502.0250, L500.4100, L501.9985, L100.0500 ####[facility] [address] [place], [address] Chloride [Moles/Vol] 101 mmol/L Normal 98-108 [facility] Comment on above: Order Comment: CBC Performed By: #### L 500.4050, L502.0250, L500.4100, L501.9985, L100.0500 ####[facility] [address] [place], [address] CO2 [Moles/Vol] 21.4 mmol/L Normal 21.0-32.0 [facility] Comment on above: Order Comment: CBC Performed By: #### L 500.4050, L502.0250, L500.4100, L501.9985, L100.0500 ####[facility] [address] [place], [address] Creatinine [Mass/Vol] 1.00 mg/dL Normal 0.70-1.20 [facility] [facility] Comment on above: Order Comment: CBC Performed By: #### L 500.4050, L502.0250, L500.4100, L501.9985, L100.0500 ####[facility] [address] [place], [address] GAP 13 Normal 5-15 [facility] Comment on above: Order Comment: CBC Performed By: #### L 500.4050, L502.0250, L500.4100, L501.9985, L100.0500 ####[facility] [address] [place], [address] GFR/1.73 sq M.predicted among non-blacks MDRD (S/P/Bld) [Vol rate/Area] 76 mL/min/{1.73_m2} Normal >60 [facility] Comment on above: Order Comment: CBC Result Comment: mL/m in/1.73m2 CKD-EPI Creatinine Equation (2020) Performed By: #### L 500.4050, L502.0250, L500.4100, L501.9985, L100.0500 ####[facility] [address] [place], [address] Globulin (S) [Mass/Vol] 3.3 g/dL Normal 2.2-4.2 [facility] Comment on above: Order Comment: CBC Performed By: #### L 500.4050, L502.0250, L500.4100, L501.9985, L100.0500 ####[facility] [address] [place], [address] Glucose [Mass/Vol] 121 mg/dL High 70-99 [facility] Comment on above: Order Comment: CBC Performed By: #### L 500.4050, L502.0250, L500.4100, L501.9985, L100.0500 ####[facility] [address] [place], [address] Potassium [Moles/Vol] 4.3 mmol/L Normal 3.3-5.1 [facility] Comment on above: Order Comment: CBC Performed By: #### L 500.4050, L502.0250, L500.4100, L501.9985, L100.0500 ####[facility] [address] [place], [address] Sodium [Moles/Vol] 136 mmol/L Normal 133-145 [facility] Comment on above: Order Comment: CBC Performed By: #### L 500.4050, L502.0250, L500.4100, L501.9985, L100.0500 ####[facility] [address] [place], [place], [id number] T PROT 7.3 g/dL Normal 5.9-8.4 [facility] Comment on above: Order Comment: CBC Performed By: #### L 500.4050, L502.0250, L500.4100, L501.9985, L100.0500 ####[facility] [address] [place], [place], [id number] Urea nitrogen [Mass/Vol] 20 mg/dL High 4-19 [facility] Comment on above: Order Comment: CBC Performed By: #### L 500.4050, L502.0250, L500.4100, L501.9985, L100.0500 ####[facility] [address] [place], [place], [id number] Creatinine Unsp time (U) [Ma ss/Vol]Ordered By: Mathieu Virgen on 11-28-2024 Creatinine (U) [Mass/Vol] 90.60 mg/dL 39-259 [facility] GFR/1.73 sq M.predicted ismael g non-blacks MDRD (S/P/Bld) [Vol rate/Area]Ordered By: Mathieu Virgen on 11-28-2024 Estimated GFR (MDRD) Non-Af Amer 76 >60 [facility] Comment on above: mL/min/1.73m2 CKD-EP I Creatinine Equation (2020) Glomerular filtration rate ( GFR) estimation/1.73 sq m using serum, plasma, or whole bOrdered By: Mathieu Virgen on 11-28-2024 GFR/1.73 sq M.predicted among non-blacks MDRD (S/P/Bld) [Vol rate/Area] 76 mL/min/{1.73_m2} >60 [facility] Comment on above: mL/min/1.73m2 CKD-EP I Creatinine Equation (2020) Hemoglobin A1con 11-28-2024 HbA1c (Bld) [Mass fraction] 7.0 % Normal <=5.6 [facility] Comment on above: Performed By: #### L 500.4050, L502.0250, L500.4100, L501.9985, L100.0500 ####[facility] [address] [place], [place], [id number] Hemoglobin A1c percentageOrd ered By: Mathieu Virgen on 11-28-2024 HbA1c (Bld) [Mass fraction] 7.0 % >5.7 [facility] LDL calc ser/plasOrdered By: Mathieu Virgen on 11-28-2024 Cholesterol in LDL [Mass/Vol] 52 mg/dL [facility] Comment on above: Ihuhanfcfc=943-157 m g/dL & Higher Lbqt=087 mg/dL or greater LDL Cholesterol, Calculated 52 mg/dL [facility] Comment on above: Awbggggohe=212-576 m g/dL & Higher Piqp=447 mg/dL or greater Laboratory - Chemistry and C hemistry - challengeOrdered By: Mathieu Virgen on 11-28-2024 AST [Catalytic activity/Vol] 19 U/L <38 [facility] Lipid Profileon 11-28-2024 CHOL:HDL 3.06 Normal [facility] Comment on above: Performed By: #### L 500.4050, L502.0250, L500.4100, L501.9985, L100.0500 ####[facility] [address] [place], [place], [phone] Cholesterol [Mass/Vol] 110 mg/dL Normal <=200 [facility] Comment on above: Result Comment: Chol esterol level, Desirable <200 mg/dLBorderline high cholesterol 200-239 mg/dLHigh cholesterol >=240 mg/dLRecommendations of the NCEP Adult Treatment Panel for thefollowing risk-cutoff thresholds for the [place] American[place]. Performed By: #### L 500.4050, L502.0250, L500.4100, L501.9985, L100.0500 ####[facility] [address] [place], [address] Cholesterol in HDL [Mass/Vol] 36 mg/dL Low [facility] Comment on above: Result Comment: [place] onal Cholesterol Education Program (NCEP) guidelines:<40 mg/dL: Low HDL-cholesterol (major risk factor for CHD)>= 60 mg/dL: High HDL-cholesterol (negative risk factor forCHD)HDL-cholesterol is affected by a number of factors, e.g.smoking, exercise, hormones, sex and age. Performed By: #### L 500.4050, L502.0250, L500.4100, L501.9985, L100.0500 ####[facility] [address] [place], [address] Cholesterol in LDL [Mass/Vol] 52 mg/dL Normal [facility] Comment on above: Result Comment: Bord ryenxj=294-955 mg/dL Higher Sqcv=539 mg/dL or greater Performed By: #### L 500.4050, L502.0250, L500.4100, L501.9985, L100.0500 ####[facility] [address] [place], [address] Cholesterol in VLDL [Mass/Vol] 22 mg/dL Normal 5-40 [facility] Comment on above: Performed By: #### L 500.4050, L502.0250, L500.4100, L501.9985, L100.0500 ####[facility] [address] [place], [address] Triglyceride [Mass/Vol] 108 mg/dL Normal [facility] Comment on above: Result Comment: The drugs N-Acetylcysteine and Metamizole may falselydepress this assay.Normal range: <150 mg/dLBorderline High: 150-199 mg/dLHigh: 200-499 mg/dLVery High: >500 mg/dL Performed By: #### L 500.4050, L502.0250, L500.4100, L501.9985, L100.0500 ####[facility] [address] [place], [address] Microalb:Creat Ratio,Random URon 11-28-2024 MALB:CREAT 187.6 mg/g CRE Normal [facility] Comment on above: Performed By: #### L 500.4050, L502.0250, L500.4100, L501.9985, L100.0500 ####[facility] [address] [place], [address] Creatinine [Mass/Vol] 90.60 mg/dL Normal 39-259 [facility] Comment on above: Performed By: #### L 500.4050, L502.0250, L500.4100, L501.9985, L100.0500 ####[facility] [address] [place], [address] MICROALBUMIN,UR 17.0 mg/L Normal NO RANGE EST. [facility] Comment on above: Performed By: #### L 500.4050, L502.0250, L500.4100, L501.9985, L100.0500 ####[facility] [address] [place], [address] Microalbumin/creat ratio urO rdered By: Mathieu Virgen on 11-28-2024 Urine Microalbumin/Creatinine Ratio 187.6 mg/g CRE [facility] Potassium (Unsp spec) [Mass/ Vol]Ordered By: Mathieu Virgen on 11-28-2024 Potassium [Moles/Vol] 4.3 mmol/L 3.3-5.1 [facility] Potassium measurement (mass/ volume)Ordered By: Mathieu Virgen on 11-28-2024 Potassium (Unsp spec) [Mass/Vol] 4.3 mmol/L 3.3-5.1 [facility] Random urine creatinine nahomy urement (mass/volume)Ordered By: Mathieu Virgen on 11-28-2024 Creatinine Unsp time (U) [Mass/Vol] 90.60 mg/dL 39-259 [facility] Screening total cholesterol/ high density lipoprotein (HDL) cholesterol ratioOrdered By: Mathieu Virgen on 11-28-2024 Cholesterol.total/Cholester ol in HDL [Mass ratio] 3.06 {ratio} [facility] Serum creatinine measurement (mass/volume)Ordered By: Mathieu Virgen on 11-28-2024 Creatinine [Mass/Vol] 1.00 mg/dL 0.70-1.20 [facility] Serum globulin measurementOr dered By: Mathieu Virgen on 11-28-2024 Globulin (S) [Mass/Vol] 3.3 g/dL 2.2-4.2 [facility] Serum glucose measurement (m ass/volume)Ordered By: Mathieu Virgen on 11-28-2024 Glucose [Mass/Vol] 121 mg/dL High 70-99 [facility] Serum or plasma alanine cottrell otransferase (ALT) measurementOrdered By: Mathieu Virgen on 11-28-2024 ALT [Catalytic activity/Vol] 15 U/L <47 [facility] Serum or plasma albumin nahomy urement (mass/volume)Ordered By: Mathieu Virgen on 11-28-2024 Albumin [Mass/Vol] 4.0 g/dL 3.4-4.8 [facility] Serum or plasma albumin/glob ulin mass ratioOrdered By: Mathieu Virgen on 11-28-2024 Albumin/Globulin [Mass ratio] 1.2 {ratio} 0.9-2.4 [facility] Serum or plasma alkaline ahsan sphatase measurementOrdered By: Mathieu Virgen on 11-28-2024 ALP [Catalytic activity/Vol] 110 U/L 40-129 [facility] Serum or plasma calcium nahomy urement (mass/volume)Ordered By: Mathieu Virgen on 11-28-2024 Calcium [Mass/Vol] 9.3 mg/dL 7.6-11.0 [facility] Serum or plasma cholesterol in HDL measurement (mass/volume)Ordered By: Mathieu Virgen on 11-28-2024 Cholesterol in HDL [Mass/Vol] 36 mg/dL Low >40 [facility] Comment on above: National Cholesterol Education Program (NCEP) guidelines:<40 mg/dL: Low HDL-cholesterol (major risk factor for CHD)>= 60 mg/dL: High HDL-cholesterol (negative risk factor for CHD)HDL-cholesterol is affected by a number of factors, e.g. smoking, exercise, hormones, sex and age. Serum or plasma cholesterol measurement (mass/volume)Ordered By: Mathieu Virgen on 11-28-2024 Cholesterol [Mass/Vol] 110 mg/dL <201 [facility] Comment on above: Cholesterol level, D esirable <200 mg/dLBorderline high cholesterol 200-239 mg/dLHigh cholesterol >=240 mg/dLRecommendations of the NCEP Adult Treatment Panel for the following risk-cutoff thresholds for the [place] population. Serum or plasma urea nitroge n measurement (mass/volume)Ordered By: Mathieu Virgen on 11-28-2024 Urea nitrogen [Mass/Vol] 20 mg/dL High - [facility] Sodium levelOrdered By: Keny Virgen on 11-28-2024 Sodium [Moles/Vol] 136 mmol/L 133-145 [facility] Total proteinOrdered By: Louis faustovikas Virgen on 11-28-2024 Protein [Mass/Vol] 7.3 g/dL 5.9-8.4 [facility] Triglycerides measurementOrd ered By: Mathieu Virgen on 11-28-2024 Triglyceride [Mass/Vol] 108 mg/dL <199 [facility] Comment on above: The drugs N-Acetylcy steine and Metamizole may falsely depress this assay. Normal range: <150 mg/dLBorderline High: 150-199 mg/dLHigh: 200-499 mg/dLVery High: >500 mg/dL Urine albumin measurement wi detection limit of 20 mg/L or less (mass/volume)Ordered By: Mathieu Virgen on 11-28-2024 Albumin DL <= 20 mg/L (U) [Mass/Vol] 17.0 mg/L NO RANGE EST. [facility] Anion gap in Serum or Plasma Ordered By: Mathieu Virgen on 11-27-2024 Anion gap [Moles/Vol] 17 mmol/L High 01-29 [facility] BUN/creatinine ratioOrdered By: Mathieu Virgen on 11-27-2024 Urea nitrogen/Creatinine [Mass ratio] 18.3 mg/mg 07-06 [facility] Basic Metabolic Profile (BMP )on 11-27-2024 BUN/CRE 18.3 RATIO Normal 07-06 [facility] Comment on above: Performed By: #### L 501.5200, L500.2500 ####[facility] [address] [place], [address] Calcium [Mass/Vol] 9.3 mg/dL Normal 7.6-11.0 [facility] Comment on above: Performed By: #### L 501.5200, L500.2500 ####[facility] [address] [place], [address] Chloride [Moles/Vol] 100 mmol/L Normal 98-108 [facility] Comment on above: Performed By: #### L 501.5200, L500.2500 ####[facility] [address] [place], [address] CO2 [Moles/Vol] 18.9 mmol/L Low 21.0-32.0 [facility] Comment on above: Performed By: #### L 501.5200, L500.2500 ####[facility] [address] [place], [address] Creatinine [Mass/Vol] 1.19 mg/dL Normal 0.70-1.20 [facility] Comment on above: Performed By: #### L 501.5200, L500.2500 ####[facility] [address] [place], [address] GAP 17 High 5-15 [facility] Comment on above: Performed By: #### L 501.5200, L500.2500 ####[facility] [address] [place], [address] GFR/1.73 sq M.predicted among non-blacks MDRD (S/P/Bld) [Vol rate/Area] 62 mL/min/{1.73_m2} Normal >60 [facility] Comment on above: Result Comment: mL/m in/1.73m2 CKD-EPI Creatinine Equation (2020) Performed By: #### L 501.5200, L500.2500 ####[facility] [address] [place], [address] Glucose [Mass/Vol] 142 mg/dL High 70-99 [facility] Comment on above: Performed By: #### L 501.5200, L500.2500 ####[facility] [address] [place], [address] Potassium [Moles/Vol] 5.0 mmol/L Normal 3.3-5.1 [facility] Comment on above: Result Comment: Hemo lysis present, Results??could be affected.?? Performed By: #### L 501.5200, L500.2500 ####[facility] [address] [place], [address] Sodium [Moles/Vol] 136 mmol/L Normal 133-145 [facility] Comment on above: Performed By: #### L 501.5200, L500.2500 ####[facility] [address] [place], [address] Urea nitrogen [Mass/Vol] 22 mg/dL High 4-19 [facility] Comment on above: Performed By: #### L 501.5200, L500.2500 ####[facility] [address] [place], [address] BUN Normal 4-19 [facility] Comment on above: Result Comment: NEED REORDERED DUE TO MEDITECH ISSUE. Performed By: #### L 501.5200, L500.2500, L100.0500 ####[facility] [address] [place], [address] BUN/CRE Normal 10-20 [facility] Comment on above: Result Comment: NEED REORDERED DUE TO MEDITECH ISSUE. Performed By: #### L 501.5200, L500.2500, L100.0500 ####[facility] [address] [place], [address] Calcium Normal 7.6-11.0 [facility] Comment on above: Result Comment: NEED REORDERED DUE TO MEDITECH ISSUE. Performed By: #### L 501.5200, L500.2500, L100.0500 ####[facility] [address] [place], [address] CL Normal 98-108 [facility] Comment on above: Result Comment: NEED REORDERED DUE TO MEDITECH ISSUE. Performed By: #### L 501.5200, L500.2500, L100.0500 ####[facility] [address] [place], [address] CO2 Normal 21.0-32.0 [facility] Comment on above: Result Comment: NEED REORDERED DUE TO MEDITECH ISSUE. Performed By: #### L 501.5200, L500.2500, L100.0500 ####[facility] [address] [place], [address] CREAT,SERUM Normal 0.70-1.20 [facility] Comment on above: Result Comment: NEED REORDERED DUE TO MEDITECH ISSUE. Performed By: #### L 501.5200, L500.2500, L100.0500 ####[facility] [address] [place], [address] eGFR Normal >60 [facility] Comment on above: Result Comment: NEED REORDERED DUE TO MEDITECH ISSUE. Performed By: #### L 501.5200, L500.2500, L100.0500 ####[facility] [address] [place], [address] GAP Normal 5-15 [facility] Comment on above: Result Comment: NEED REORDERED DUE TO MEDITECH ISSUE. Performed By: #### L 501.5200, L500.2500, L100.0500 ####[facility] [address] [place], [address] GLU Normal 70-99 [facility] Comment on above: Result Comment: NEED REORDERED DUE TO MEDITECH ISSUE. Performed By: #### L 501.5200, L500.2500, L100.0500 ####[facility] [address] [place], [address] Potassium Normal 3.3-5.1 [facility] Comment on above: Result Comment: NEED REORDERED DUE TO MEDITECH ISSUE. Performed By: #### L 501.5200, L500.2500, L100.0500 ####[facility] [address] [place], [address] Basic Metabolic Profile (BMP) Normal 133-145 [facility] Comment on above: Result Comment: NEED REORDERED DUE TO MEDITECH ISSUE. Performed By: #### L 501.5200, L500.2500, L100.0500 ####[facility] [address] [place], [address] CBC-Complete Blood Cnt No Di ffon 11-27-2024 Erythrocyte distribution width (RBC) [Ratio] 17.0 % High 11.6-14.6 [facility] Comment on above: Performed By: #### L 501.5200, L500.2500, L100.0500 ####[facility] [address] [place], [address] Hematocrit (Bld) [Volume fraction] 43.7 % Normal 40-54 [facility] Comment on above: Performed By: #### L 501.5200, L500.2500, L100.0500 ####[facility] [address] [place], [address] Hemoglobin (Bld) [Mass/Vol] 14.3 g/dL Normal 13.0-16. 5 [facility] Comment on above: Performed By: #### L 501.5200, L500.2500, L100.0500 ####[facility] [address] [place], [address] MCH (RBC) [Entitic mass] 26.3 pg Low 27.0-32.0 [facility] Comment on above: Performed By: #### L 501.5200, L500.2500, L100.0500 ####[facility] [address] [place], [address] MCHC (RBC) [Mass/Vol] 32.7 g/dL Normal 32-36 [facility] Comment on above: Performed By: #### L 501.5200, L500.2500, L100.0500 ####[facility] [address] [place], [address] MCV (RBC) [Entitic vol] 80.5 fL Normal 80-94 [facility] Comment on above: Performed By: #### L 501.5200, L500.2500, L100.0500 ####[facility] [address] [place], [address] Platelet mean volume (Bld) [Entitic vol] 10.6 fL Normal 6.2-12.0 [facility] Comment on above: Performed By: #### L 501.5200, L500.2500, L100.0500 ####[facility] [address] [place], [address] Platelets (Bld) [#/Vol] 272 10*3/uL Normal 150-450 [facility] Comment on above: Performed By: #### L 501.5200, L500.2500, L100.0500 ####[facility] [address] [place], [address] RBC (Bld) [#/Vol] 5.43 10*6/uL Normal 4.6-6.2 [facility] Comment on above: Performed By: #### L 501.5200, L500.2500, L100.0500 ####[facility] [address] [place], [address] RDW SD 49.5 fl High 35.1-43.9 [facility] Comment on above: Performed By: #### L 501.5200, L500.2500, L100.0500 ####[facility] [address] [place], [address] WBC (Bld) [#/Vol] 11.5 10*3/uL High 4.4-11.0 [facility] Comment on above: Performed By: #### L 501.5200, L500.2500, L100.0500 ####[facility] [address] [place], [address] CNPNon 11-27-2024 [facility] Telephone (FAMPWS) FAISAL ALARCON ([id number]) 1945 Date Time Provider Department 11/27/24 MATHIEU VIRGEN [facility] During your visit today, we recorded [...] Pure hypercholesterolemia [E78.00] Order(s):ADVANCE CARE PLAN DISCUSSION [3179877] Order #: [id number]: 1 LIPID PANEL BASIC [SQLIPB] Order #: [id number] FUTURE ALBUMIN/CREATININE RATIO, URINE [SQUACR] Order #: [id number] FUTURE HEMOGLOBIN A1C [SHOGC6N] Order #: [id number] FUTURE COMPLETE BLOOD COUNT [SQCBC] Order #: [id number] FUTURE COMPREHENSIVE METABOLIC PANEL [SQCMP] Order #: [id number] FUTURE Prescriptions as of 11/27/2024 - finasteride [...] - Blood-Glucose Meter,Continuous (FREESTYLE MARIELLE 3 READER) [facility] [place] Use to check blood sugar at least [...] times a day before meals. Getting through [facility] - simvastatin (ZOCOR) 40 mg tablet Take 1 tablet by mouth daily at bedtime. - flecainide (TAMBOCOR) 150 mg tablet Take 1 tablet by mouth every 12 hours. 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 - aspirin 81 mg chewable tablet Take 81 mg by mouth once daily. - insulin needles, DISPOSABLE, (1ST TIER UNIFINE PENTIPS) 31 gauge x 5/16" ndle 1 Each once daily. DX: E11.9 Insulin: Yes - Insulin Syringe-Needle U-100 1/2 mL 29 x 1/2" syrg 1 Each once daily. USE ONE [...] hypertension [I10] (more content not included)... Normal [facility] Carbon dioxide, total [Moles /volume] in Central venous bloodOrdered By: Mathieu Virgen on 11-27-2024 CO2 [Moles/Vol] 18.9 mmol/L Low 21.0-32.0 [facility] Chloride assayOrdered By: Shannon gaffneykisha Param on 11-27-2024 Chloride [Moles/Vol] 100 mmol/L 98-108 [facility] Erythrocyte distribution wid th ratioOrdered By: Mathieu Virgen on 11-27-2024 Erythrocyte distribution width (RBC) [Ratio] 17.0 % High 11.6-14.6 [facility] Erythrocyte distribution wid th standard deviationOrdered By: Mathieu Virgen on 11-27-2024 Erythrocyte distribution width (RBC) [Entitic vol] 49.5 fL High 35.1-43.9 [facility] Erythrocyte distribution width (RBC) [Ratio] 49.5 fl High 35.1-43.9 [facility] GFR/1.73 sq M.predicted ismael g non-blacks MDRD (S/P/Bld) [Vol rate/Area]Ordered By: Mathieu Virgen on 11-27-2024 Estimated GFR (MDRD) Non-Af Amer 62 >60 [facility] Comment on above: mL/min/1.73m2 CKD-EP I Creatinine Equation (2020) Glomerular filtration rate ( GFR) estimation/1.73 sq m using serum, plasma, or whole bOrdered By: Mathieu Virgen on 11-27-2024 GFR/1.73 sq M.predicted among non-blacks MDRD (S/P/Bld) [Vol rate/Area] 62 mL/min/{1.73_m2} >60 [facility] Comment on above: mL/min/1.73m2 CKD-EP I Creatinine Equation (2020) Hematocrit Auto (Bld) [Volum e fraction]Ordered By: Mathieu Virgen on 11-27-2024 Hematocrit (Bld) [Volume fraction] 43.7 % 40-54 [facility] Hemoglobin measurementOrdere d By: Mathieu Virgen on 11-27-2024 Hemoglobin (Bld) [Mass/Vol] 14.3 g/dL 13.0-16. 5 [facility] MCV (mean corpuscular volume ) determinationOrdered By: Mathieu Virgen on 11-27-2024 MCV (RBC) [Entitic vol] 80.5 fL 80-94 [facility] Magnesiumon 11-27-2024 Magnesium [Mass/Vol] 2.3 mg/dL High 1.5-2.2 [facility] Comment on above: Performed By: #### L 501.5200, L500.2500 ####[facility] [address] [place], [address] Magnesium [Mass/Vol] 2.3 mg/dL High 1.5-2.2 [facility] Comment on above: Order Comment: NEED REORDERED DUE TO MEDITECH ISSUE. Result Comment: NEED REORDERED DUE TO MEDITECH ISSUE. Performed By: #### L 501.5200, L500.2500, L100.0500 ####[facility] [address] [place], [address] Magnesium (Unsp spec) [Mass/ Vol]Ordered By: Mathieu Virgen on 11-27-2024 Magnesium [Mass/Vol] 2.3 mg/dL High 1.5-2.2 [facility] Magnesium measurement (mass/ volume)Ordered By: Mathieu Virgen on 11-27-2024 Magnesium (Unsp spec) [Mass/Vol] 2.3 mg/dL High 1.5-2.2 [facility] Mean corpuscular hemoglobin (MCH) determinationOrdered By: Mathieu Virgen on 11-27-2024 MCH (RBC) [Entitic mass] 26.3 pg Low 27.0-32.0 [facility] Mean corpuscular hemoglobin concentration (MCHC) determinationOrdered By: Mathieu Virgen on 11-27-2024 MCHC (RBC) [Mass/Vol] 32.7 g/dL 32-36 [facility] Mean platelet volume determi nationOrdered By: Mathieu Virgen on 11-27-2024 Platelet mean volume (Bld) [Entitic vol] 10.6 fL 6.2-12.0 [facility] Platelet countOrdered By: Shannon Virgen on 11-27-2024 Platelets (Bld) [#/Vol] 272 10*3/uL 150-450 [facility] Potassium (Unsp spec) [Mass/ Vol]Ordered By: Mathieu Virgen on 11-27-2024 Potassium [Moles/Vol] 5.0 mmol/L 3.3-5.1 [facility] Comment on above: Hemolysis present, R esults could be affected. Potassium measurement (mass/ volume)Ordered By: Mathieu Virgen on 11-27-2024 Potassium (Unsp spec) [Mass/Vol] 5.0 mmol/L 3.3-5.1 [facility] Comment on above: Hemolysis present, R esults could be affected. RBC Auto (Bld) [#/Vol]Ordere d By: Mathieu Virgen on 11-27-2024 RBC (Bld) [#/Vol] 5.43 10*6/uL 4.6-6.2 [facility] Serum creatinine measurement (mass/volume)Ordered By: Mathieu Virgen on 11-27-2024 Creatinine [Mass/Vol] 1.19 mg/dL 0.70-1.20 [facility] Serum glucose measurement (m ass/volume)Ordered By: Mathieu Virgen on 11-27-2024 Glucose [Mass/Vol] 142 mg/dL High 70-99 [facility] Serum or plasma calcium nahomy urement (mass/volume)Ordered By: Mathieu Virgen on 11-27-2024 Calcium [Mass/Vol] 9.3 mg/dL 7.6-11.0 [facility] Serum or plasma urea nitroge n measurement (mass/volume)Ordered By: Mathieu Virgen on 11-27-2024 Urea nitrogen [Mass/Vol] 22 mg/dL High 4-19 [facility] Sodium levelOrdered By: Keny Virgen on 11-27-2024 Sodium [Moles/Vol] 136 mmol/L 133-145 [facility] White blood cell (WBC) count Ordered By: Mathieu Virgen on 11-27-2024 WBC (Bld) [#/Vol] 11.5 10*3/uL High 4.4-11.0 [facility] CNPNon 11-26-2024 CNPN Telephone (PEEP) FAISAL ALARCON ([id number]) 1945 M Date Time Provider Department 11/26/24 [...] ok rx needs to sent to yanira ortiz daughter needs called with information Mathieu Virgen MD 11/26/2024 5:08 PM Signed I am assuming he is taking it once a day. Rx sent Jaylene Henley LPN 11/26/2024 5:18 PM Signed Left detailed message on [employer]. Allergies As of Date: 11/26/2024 Noted Allergy [...] - Blood-Glucose Meter,Continuous (FREESTYLE MARIELLE 3 READER) [facility] Use to check blood sugar at least [...] times a day before meals. Getting through [facility] - simvastatin (ZOCOR) 40 mg tablet Take 1 tablet by mouth daily at bedtime. - flecainide (TAMBOCOR) 150 mg tablet Take 1 tablet by mouth every 12 hours. 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 - aspirin 81 mg chewable tablet Take 81 mg by mouth once daily. - insulin needles, DISPOSABLE, (1ST TIER UNIFINE PENTIPS) 31 gauge x 5/16" ndle 1 Each once daily. DX: E11.9 Insulin: Yes - Insulin Syringe-Needle U-100 1/2 mL 29 x 1/2" syrg 1 Each once daily. USE ONE [...] 06/09/2011 0 (more content not included)... Normal [facility] Ema 11-24-2024 CAESARN Telephone (FAMPWS) FAISAL ALARCON ([id number]) 1945 M Date Time Provider Department 11/24/24 MATHIEU VIRGEN During your visit today, we recorded the following information about you: Nisha Wilson 11/24/2024 9:35 AM Signed Patient's daughter calling asking for an medication: dilTIAZem CD (CARDIZEM CD, CARTIA XT) 120 mg 24 hr capsule () Patient last seen 10/31/23 Future visit scheduled: yes PHARMACY: Yanira Esparza/Lisa. Janet King MA 11/24/2024 10:17 AM Signed [...] - Blood-Glucose Meter,Continuous (FREESTYLE MARIELLE 3 READER) [facility] Use to check blood sugar at least [...] mouth every 12 hours. 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 - finasteride (PROSCAR) 5 mg tablet - aspirin 81 mg chewable tablet Take 81 mg by mouth once daily. - insulin needles, DISPOSABLE, (1ST TIER UNIFINE PENTIPS) 31 gauge x 5/16" ndle 1 Each once daily. DX: E11.9 Insulin: Yes - Insulin Syringe-Needle U-100 1/2 mL 29 x 1/2" syrg 1 Each once daily. USE ONE [...] breath) [R06.02] (more content not included)... [facility] Telephone (COLIN) FAISAL ALARCON ([id number]) 1945 M Date Time Provider Department 11/12/24 [facility] During your visit today, we recorded the following information about you: Tammy Davies LPN 11/12/2024 3:26 PM Signed Rem from Lisa Esparza pharmacist calling patient daughter told her that [...] - Blood-Glucose Meter,Continuous (FREESTYLE MARIELLE 3 READER) misc Use to check blood sugar at least four (4) times daily. Uses insulin - Blood-Glucose Sensor (FREESTYLE MARIELLE 3 PLUS SENSOR) sayra Apply new sensor every fifteen (15 (more content not included)... Normal [facility] Bedside Glucoseon 11-03-2024 FINGERSTICK GLU 132 mg/dL High -106 [facility] Comment on above: Result Comment: URSULA GEMENT OF PATIENT CARE PER NURSING PROTOCOL Performed By: #### L 501.080 ####[facility] [address] [facility] [address] FINGERSTICK GLU 108 mg/dL High [address] [place] [address] Comment on above: Result Comment: URSULA GEMENT OF PATIENT CARE PER NURSING PROTOCOL Performed By: #### L 501.080 ####[facility] [address] [place], [address] FINGERSTICK GLU 55 mg/dL Low -[address] [place] [address] Comment on above: Result Comment: URSULA GEMENT OF PATIENT CARE PER NURSING PROTOCOL Performed By: #### L 501.080 ####[facility] [address] [place], [address] Emergency Department Summary on 11-03-2024 Emergency Department Summary Normal [facility] Glucose measurement at [facility] deOrdered By: Qasim Senior on 11-03-2024 Bedside [facility]) 132 mg/dL High 74-106 [facility] Comment on above: MANAGEMENT OF PATIEN T CARE PER NURSING PROTOCOL Glucose [Mass/Vol] 132 mg/dL High 74-106 [facility] Comment on above: MANAGEMENT OF PATIEN T CARE PER NURSING PROTOCOL CNOVon 10-31-2024 CNOV Office Visit (FAMPWS ) FAISAL ALARCON ([id number]) 1945 M Date Time Provider Department 10/31/24 3:00 PM [facility] During your visit today, we recorded the following information about you: Pulse Respiration Blood pressure Weight 78/minute 18/minute 114/68 124.3 kg Sukh Hall APRN.PCU RN 10/31/2024 3:16 PM Signed Chief Complaint Patient [...] day. Blood-Glucose Meter,Continuous (FREESTYLE MARIELLE 3 READER) [facility] Use to check blood sugar at least [...] (1ST TIER UNIFINE PENTIPS) 31 gauge x 5/16" ndle 1 Each once daily. DX: E11.9 Insulin: Yes Insulin Syringe-Needle U-100 1/2 mL 29 x 1/2" syrg 1 Each once daily. USE ONE SYRINGE FOR EACH DOSE/1PER DAY, (E11.9, Z79.4) Diabetes mellitus type 2, insulin dependent. Lancets (ACCU-CHEK SOFTCLIX LANCETS) lancets Test blood sugar(s) 1 safia (more content not included)... Normal [facility] FAISAL ALARCON ([id number]) 1945 M Date Time Provider Department 10/31/24 MATHIEU VIRGEN [facility] During your visit today, we recorded the following information about you: Jackelin Tinajero, RN 10/31/2024 2:42 PM Signed Call placed to [...] waiting for a new C-pap machine from [facility]. (Nisha is calling them to ask [...] - Blood-Glucose Meter,Continuous (FREESTYLE MARIELLE 3 READER) [facility] Use to check blood sugar at least [...] times a day before meals. Getting through [facility] - dilTIAZem CD (CARDIZEM CD, CARTIA XT) 120 mg 24 hr capsule Take 1 capsule by mouth once daily. - simvastatin (ZOCOR) 40 mg tablet Take 1 tablet by mouth daily at bedtime. - flecainide (TAMBOCOR) 150 mg tablet Take 1 tablet by mouth every 12 hours. 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 - finasteride (PROSCAR) 5 mg tablet - aspirin 81 mg chewable tablet Take 81 mg by mouth once daily. - insulin needles, DISPOSABLE, (1ST TIER UNIFINE PENTIPS) 31 gauge x 5/16" ndle 1 Each once daily. DX: E11.9 Insulin: Yes - Insulin Syringe-Needle U-100 1/2 mL 29 x 1/2" syrg 1 Each once daily. USE ONE [...] microalbuminuria *04/18 (more content not included)... Normal [facility] CNPNon 10-16-2024 [facility] (FAMPWS) FAISAL ALARCON ([id number]) 1945 Date Time Provider Department 10/16/24 MATHIEU VIRGEN [facility] During your visit today, we recorded the following information about you: Vikas Regalado RN 10/16/2024 10:34 AM Signed Daughter Farida reports patient had 3 Dexcom G 7 sensors that malfunctioned. They notified the company, but it takes 5-7 days to receive new one. Asking if pcp has samples of these sensors or knows how they can get one. Please phone Farida with reply: [phone] Mathieu Virgen MD 10/16/2024 10:35 AM Signed Do we have anything like that available? Might need to buy one if not Lulu Walls MA 10/16/2024 11:55 AM Signed We do not have samples. Spoke with daughter Farida and informed her of this. She is requesting a Rx for the Dexcom sensors (G7) to the [facility] in [place] while waiting for the company to ship [...] - Blood-Glucose Meter,Continuous (FREESTYLE MARIELLE 3 READER) [facility] Use to check blood sugar at least [...] mouth every 12 hours. 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 - finasteride (PROSCAR) 5 mg tablet - aspirin 81 mg chewable tablet Take 81 mg by mouth once daily. - insulin needles, DISPOSABLE, (1ST TIER UNIFINE PENTIPS) 31 gauge x 5/16" ndle 1 Each once daily. DX: E11.9 Insulin: Yes - Insulin Syringe-Needle U-100 1/2 mL 29 x 1/2" syrg 1 Each once daily. USE ONE [...] 06/06/2023 Tu (more content not included)... Normal [facility] Basic Metabolic Profile (BMP )on 10-07-2024 BUN/CRE 26.7 RATIO High 10-20 [facility] Comment on above: Performed By: #### L 500.2500 ####[facility] [address] [place], [address] CA,Total 9.6 mg/dL Normal 8.5-10.1 [facility] Comment on above: Performed By: #### L 500.2500 ####[facility] [address] [place], [address] Chloride [Moles/Vol] 104 mmol/L Normal 98-107 [facility] Comment on above: Performed By: #### L 500.2500 ####[facility] [address] [place], [address] CO2 [Moles/Vol] 26.0 mmol/L Normal 21.0-32.0 [facility] Comment on above: Performed By: #### L 500.2500 ####[facility] [address] [place], [address] Creatinine [Mass/Vol] 1.20 mg/dL Normal 0.70-1.30 [facility] Comment on above: Result Comment: The validity of the calculated GFR GFRAA in patients over70 years has not been determined. Clinical correlation isessential. Performed By: #### L 500.2500 ####[facility] [address] [place], [address] EST GFR - AA 75 mL/min Normal >60 [facility] Comment on above: Result Comment: Afri can Kuwaiti GFR Calc Performed By: #### L 500.2500 ####[facility] [address] [place], [address] GAP 6 Normal 5-15 [facility] Comment on above: Performed By: #### L 500.2500 ####[facility] [address] [place], [address] GFR/1.73 sq M.predicted among non-blacks MDRD (S/P/Bld) [Vol rate/Area] 62 mL/min/{1.73_m2} Normal >60 [facility] Comment on above: Result Comment: Non- GFR Calc Performed By: #### L 500.2500 ####[facility] [address] [place], [address] Glucose [Mass/Vol] 142 mg/dL High 74-106 [facility] Comment on above: Result Comment: Fast ing Glucose result greater than or equal to 126 mg/dLsuggests DIABETES MELLITUS per A.D.A. criteria. Performed By: #### L 500.2500 ####[facility] [address] [place], [address] Potassium [Moles/Vol] 4.3 mmol/L Normal 3.5-5.1 [facility] Comment on above: Performed By: #### L 500.2500 ####[facility] [address] [place], [address] Sodium [Moles/Vol] 136 mmol/L Normal 136-145 [facility] Comment on above: Performed By: #### L 500.2500 ####[facility] [address] [place], [address] Urea nitrogen [Mass/Vol] 32 mg/dL High 7-18 [facility] Comment on above: Performed By: #### L 500.2500 ####[facility] [address] [place], [address] Blood urea nitrogen (BUN)/cr eatinine ratioOrdered By: Tierra Gilbert on 10-07-2024 Urea nitrogen/Creatinine [Mass ratio] 26.7 mg/mg High 10-20 [facility] Carbon dioxide measurementOr dered By: Tierra Gilbert on 10-07-2024 CO2 [Moles/Vol] 26.0 mmol/L 21.0-32.0 [facility] Chloride measurementOrdered By: Tierra Gilbert on 10-07-2024 Chloride [Moles/Vol] 104 mmol/L 98-107 [facility] Estimated glomerular filtrat ion rate (GFR) AmericanOrdered By: Tierra Gilbert on 10-07-2024 Estimated GFR (MDRD) Amer 75 mL/min >60 [facility] Comment on above: GFR Calc Glomerular filtration rate ( GFR) estimationOrdered By: Tierra Gilbert on 10-07-2024 Estimated GFR (MDRD) Non-Af Amer 62 mL/min >60 [facility] Comment on above: Non- GFR Calc GFR/1.73 sq M.predicted among non-blacks MDRD (S/P/Bld) [Vol rate/Area] 62 mL/min/{1.73_m2} >60 [facility] Comment on above: Non- GFR Calc Glucose measurementOrdered B y: Tierra Gilbert on 10-07-2024 Glucose [Mass/Vol] 142 mg/dL High 74-106 [facility] Comment on above: Fasting Glucose resu lt greater than or equal to 126 mg/dL suggests DIABETES MELLITUS per A.D.A. criteria. Potassium measurementOrdered By: Tierra Gilbert on 10-07-2024 Potassium [Moles/Vol] 4.3 mmol/L 3.5-5.1 [facility] Serum anion gap measurementO rdered By: Tierra Gilbert on 10-07-2024 Anion gap [Moles/Vol] 6 mmol/L 5-15 [facility] Serum or plasma calcium nahomy urement (mass/volume)Ordered By: iTerra Gilbert on 10-07-2024 Calcium [Mass/Vol] 9.6 mg/dL 8.5-10.1 [facility] Serum or plasma creatinine m easurement (mass/volume)Ordered By: Tierra Gilbert on 10-07-2024 Creatinine [Mass/Vol] 1.20 mg/dL 0.70-1.30 [facility] Comment on above: The validity of the calculated GFR & GFRAA in patients over 70 years has not been determined. Clinical correlation is essential. Serum or plasma urea nitroge n measurement (mass/volume)Ordered By: Tierra Gilbert on 10-07-2024 Urea nitrogen [Mass/Vol] 32 mg/dL High 7-18 [facility] Sodium levelOrdered By: Misbah Gilbert on 10-07-2024 Sodium [Moles/Vol] 136 mmol/L 136-145 [facility] 09-23-2024 [facility] FAISAL ALARCON ([id number]) 1945 M Date Time Provider Department 09/23/24 2:40 PM DEN[facility] SHEPRAD [facility] During your visit today, we recorded the following information about you: Pulse Respiration Blood pressure Weight 79/minute 16/minute 118/68 127.9 kg Denisha Shepard APRN.PCU RN 09/23/2024 6:18 PM Signed This is a 79 year old male who presents today with: Patient presents with: ER F/U: [facility] ER 09/20/24 dx:CP HISTORY OF PRESENT ILLNESS: Faisal Alarcon is a 79 year old male. Patient presents with: ER F/U: [facility] ER 09/20/24 dx:CP Patient presents today for emergency room follow-up. He went to the emergency room on 09/20/2024 with complaints of chest discomfort. He had been given nitroglycerin by EMS that did improve his pain. He had negative cardiac enzymes and stable lab work. There was no STEMI. The emergency room did consult patient's petroleum refinery operator, and it was recommended to start patient [...] day. Blood-Glucose Meter,Continuous (FREESTYLE MARIELLE 3 READER) [facility] Use to check blood sugar at least [...] mouth every 12 hours. Prescribed by outside petroleum refinery operator insulin glargine (BASAGLAR KWIKPEN U-100 INSULIN) 100 unit/mL (3 mL) Inject 90 Units subcutaneously daily at bedtime. (Patient taking differently: Inject 60 Units subcutaneously daily at bedtime.) finasteride (PROSCAR) 5 mg tablet aspirin 81 mg chewable tablet Take 81 mg by mouth once daily. insulin needles, DISPOSABLE, (1ST TIER UNIFINE PENTIPS) 31 gauge x 5/16" ndle 1 Each once daily. DX: E11.9 Insulin: Yes Insulin Syri (more content not included)... Normal [facility] Cardiology Visit Reporton Cardiology Visit Report Normal [facility] CBC W/Diff, Automatedon PATH REV Reviewed Normal [facility] Comment on above: Result Comment: Leuk ocytosis.Clinical correlation necessary.Callum Arteaga M.D. 09/22/24 AMENDED REPORT 09/22/24 1321 PATH REV previously reported as: January joana Performed By: #### L 501.5484, L500.2500, L100.0100 ####[facility] [address] [place], [address] Ema 09-22-2024 YAKOV Telephone (EDISWS) FAISAL ALARCON ([id number]) 1945 M Date Time Provider Department 09/22/24 DEN[facility] SHEPARD [facility] During your visit today, we recorded the following information about you: Liyah Monroy, RN 09/22/2024 1:03 PM Signed Pts daughter called in and reports her father was in [facility] ER 09/20/24. She reports Pt was having chest pain and that is why he went to the ER. Pts daughter states they didn't find anything wrong with him, everything was the same as before. Pt scheduled with Denisha Shepard SENIOR PROCESS ANALYST 09/23/24 at 240 pm. She reports he father has been feeling lightheaded and dizzy, and she thinks it's because on 09/13/24 his Lead Ruby On Rails Developer Dr Ponce double his dose of Lasix. [...] - Blood-Glucose Meter,Continuous (FREESTYLE MARIELLE 3 READER) [facility] Use to check blood sugar at least [...] mouth every 12 hours. 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 - finasteride (PROSCAR) 5 mg tablet - aspirin 81 mg chewable tablet Take 81 mg by mouth once daily. - insulin needles, DISPOSABLE, (1ST TIER UNIFINE PENTIPS) 31 gauge x 5/16" ndle 1 Each once daily. DX: E11.9 Insulin: Yes - Insulin Syringe-Needle U-100 1/2 mL 29 x 1/2" syrg 1 Each once daily. USE ONE [...] condition wi* (more content not included)... Normal [facility] 12 Lead EKGon 09-20-2024 12 Lead EKG Normal [facility] 12 Lead EKG Normal [facility] Absolute neutrophil countOrd ered By: Reji Smith on 09-20-2024 Neutrophils (Bld) [#/Vol] 7.5 10*3/uL 2.0-7.7 [facility] Basic Metabolic Profile (BMP )on 01-04-2025 BUN/CRE 21.4 RATIO High 10-20 [facility] Comment on above: Order Comment: 1Y Performed By: #### L 501.5425, L500.2500, L100.0100 ####[facility] [address] [place], [address] CA,Total 9.5 mg/dL Normal 8.5-10.1 [facility] Comment on above: Order Comment: 1Y Performed By: #### L 501.5425, L500.2500, L100.0100 ####[facility] [address] [place], [address] Chloride [Moles/Vol] 102 mmol/L Normal 98-107 [facility] Comment on above: Order Comment: 1Y Performed By: #### L 501.5425, L500.2500, L100.0100 ####[facility] [address] [place], [address] CO2 [Moles/Vol] 27.0 mmol/L Normal 21.0-32.0 [facility] Comment on above: Order Comment: 1Y Performed By: #### L 501.5425, L500.2500, L100.0100 ####[facility] [address] [place], [address] Creatinine [Mass/Vol] 1.26 mg/dL Normal 0.70-1.30 [facility] Comment on above: Order Comment: 1Y Result Comment: The validity of the calculated GFR GFRAA in patients over70 years has not been determined. Clinical correlation isessential. Performed By: #### L 501.5425, L500.2500, L100.0100 ####[facility] [address] [place], [address] ECRCL 66.12 ml/min Normal [facility] Comment on above: Order Comment: 1Y Performed By: #### L 501.5425, L500.2500, L100.0100 ####[facility] [address] [place], [address] EST GFR - AA 71 mL/min Normal >60 [facility] Comment on above: Order Comment: 1Y Result Comment: Afri can Kuwaiti GFR Calc Performed By: #### L 501.5425, L500.2500, L100.0100 ####[facility] [address] [place], [address] GAP 8 Normal 5-15 [facility] Comment on above: Order Comment: 1Y Performed By: #### L 501.5425, L500.2500, L100.0100 ####[facility] [address] [place], [address] GFR/1.73 sq M.predicted among non-blacks MDRD (S/P/Bld) [Vol rate/Area] 59 mL/min/{1.73_m2} Low >60 [facility] Comment on above: Order Comment: 1Y Result Comment: Non- GFR Calc Performed By: #### L 501.5425, L500.2500, L100.0100 ####[facility] [address] [place], [address] Glucose [Mass/Vol] 147 mg/dL High 74-106 [facility] Comment on above: Order Comment: 1Y Result Comment: Fast ing Glucose result greater than or equal to 126 mg/dLsuggests DIABETES MELLITUS per A.D.A. criteria. Performed By: #### L 501.5425, L500.2500, L100.0100 ####[facility] [address] [place], [address] Potassium [Moles/Vol] 3.8 mmol/L Normal 3.5-5.1 [facility] Comment on above: Order Comment: 1Y Performed By: #### L 501.5425, L500.2500, L100.0100 ####[facility] [address] [place], [address] Sodium [Moles/Vol] 137 mmol/L Normal 136-145 [facility] Comment on above: Order Comment: 1Y Performed By: #### L 501.5425, L500.2500, L100.0100 ####[facility] [address] [place], [address] Urea nitrogen [Mass/Vol] 27 mg/dL High 7-18 [facility] Comment on above: Order Comment: 1Y Performed By: #### L 501.5425, L500.2500, L100.0100 ####[facility] [address] [place], [address] Basophil percentageOrdered B y: Reji Smith on 09-20-2024 Basophils/100 WBC (Bld) 0.4 % 0-1 [facility] Blood urea nitrogen (BUN)/cr eatinine ratioOrdered By: Reji Smith on 09-20-2024 Urea nitrogen/Creatinine [Mass ratio] 21.4 mg/mg High 10-20 [facility] Carbon dioxide measurementOr dered By: Reji Smith on 09-20-2024 CO2 [Moles/Vol] 27.0 mmol/L 21.0-32.0 [facility] Chest 1 View (Portable)on Chest 1 View (Portable) Normal [facility] Chloride measurementOrdered By: Reji Smith on 09-20-2024 Chloride [Moles/Vol] 102 mmol/L 98-107 [facility] Emergency Department Summary on 09-20-2024 Emergency Department Summary Normal [facility] Eosinophil percentageOrdered By: Reji Smith on 09-20-2024 Eosinophils/100 WBC (Bld) 2.9 % 0-5 [facility] Erythrocyte distribution wid th ratioOrdered By: Reji Smith on 09-20-2024 Erythrocyte distribution width (RBC) [Ratio] 15.0 % High 11.6-14.6 [facility] Erythrocyte distribution wid th standard deviationOrdered By: Reji Smith on 09-20-2024 Erythrocyte distribution width (RBC) [Entitic vol] 43.9 fL 35.1-43.9 [facility] Estimated glomerular filtrat ion rate (GFR) AmericanOrdered By: Reji Smith on 09-20-2024 Estimated GFR (MDRD) Amer 71 mL/min >60 [facility] Comment on above: GFR Calc Estimation of creatinine ashley aranceOrdered By: Reji Smith on 09-20-2024 Estimated Creatinine Clearance Calc 66.12 ml/min [facility] Glomerular filtration rate ( GFR) estimationOrdered By: Reji Smith on 09-20-2024 Estimated GFR (MDRD) Non-Af Amer 59 mL/min Low >60 [facility] Comment on above: Non- GFR Calc Glucose measurementOrdered B y: Reji Smith on 09-20-2024 Glucose [Mass/Vol] 147 mg/dL High 74-106 [facility] Comment on above: Fasting Glucose resu lt greater than or equal to 126 mg/dL suggests DIABETES MELLITUS per A.D.A. criteria. Hematocrit Auto (Bld) [Volum e fraction]Ordered By: Reji Smith on 09-20-2024 Hematocrit (Bld) [Volume fraction] 43.8 % 40-54 [facility] Hemoglobin measurementOrdere d By: Reji Smith on 09-20-2024 Hemoglobin (Bld) [Mass/Vol] 13.9 g/dL 13.0-16. 5 [facility] Immature granulocytes/100 WB C Auto (Bld)Ordered By: Reji Smith on 09-20-2024 Immature granulocytes/100 WBC (Bld) 0.400 % 0.0-0.9 [facility] Comment on above: IG% - Immature Granu locytes (promyelocytes, myelocytes and metamyelocytes) > 1% indicates that a LEFT SHIFT is Present. L501.4020on 09-20-2024 TROPONIN-I HS 8 pg/mL Normal 3.0-78.0 [facility] Comment on above: Result Comment: Plerodríguez irwin Note: New Test Units and Gender Specific Reference Ranges. For more information see Policy Stat Procedure Orient High Sensitivity Troponin (TNIH) and attachments. Performed By: #### L 501.4020 ####[facility] [address] [place], [address] L501.5425on 09-20-2024 TROPONIN-I HS 10 pg/mL Normal 3.0-78.0 [facility] Comment on above: Order Comment: 1Y Result Comment: Hannah irwin Note: New Test Units and Gender Specific Reference Ranges. For more information see Policy Stat Procedure Orient High Sensitivity Troponin (TNIH) and attachments. Performed By: #### L 501.5425, L500.2500, L100.0100 ####[facility] [address] [place], [address] Lymphocytes Auto (Unsp spec) [#/Vol]Ordered By: Reji Smith on 09-20-2024 Lymphocytes (Bld) [#/Vol] 1.85 10*3/uL 0.83-4.5 1 [facility] Lymphocytes/100 WBC Auto (Un sp spec)Ordered By: Reji Smith on 09-20-2024 Lymphocytes/100 WBC (Bld) 16.3 % Low 19-41 [facility] MCV (mean corpuscular volume ) determinationOrdered By: Reji Smith on 09-20-2024 MCV (RBC) [Entitic vol] 80.4 fL 80-94 [facility] Manual differential comment Rey (Bld) [Interp]Ordered By: Reji Smith on 09-20-2024 Differential Comment SCANNED [facility] Comment on above: MONOCYTOSIS NOTED Mean corpuscular hemoglobin (MCH) determinationOrdered By: Reji Smith on 09-20-2024 MCH (RBC) [Entitic mass] 25.5 pg Low 27.0-32.0 [facility] Mean corpuscular hemoglobin concentration (MCHC) determinationOrdered By: Reji Smith on 09-20-2024 MCHC (RBC) [Mass/Vol] 31.7 g/dL Low 32-36 [facility] Mean platelet volume determi nationOrdered By: Reji Smith on 09-20-2024 Platelet mean volume (Bld) [Entitic vol] 11.3 fL 6.2-12.0 [facility] Monocyte percentageOrdered B y: Reji Smith on 09-20-2024 Monocytes/100 WBC (Bld) 14.0 % High 0-10 [facility] Neutrophil percentageOrdered By: Reji Smith on 09-20-2024 Neutrophils/100 WBC (Bld) 66.0 % 47-70 [facility] Nucleated red blood cell per centageOrdered By: Reji Smith on 09-20-2024 Nucleated RBC/100 WBC (Bld) [Ratio] 0 % 0-5 [facility] Pathologist review Rey (Unsp spec) [Interp]Ordered By: Reji Smith on 09-20-2024 Differential Pathologist's Review Reviewed [facility] Comment on above: Previous reported re sult: January joana Edited by: IRON on 09/22/24:1321Leukocytosis.Clinical correlation necessary.Callum Arteaga M.D. 09/22/24 AMENDED REPORT 09/22/24 1321 PATH REV previously reported as: Tamara bernard Platelet countOrdered By: Kevin Smith on 09-20-2024 Platelets (Bld) [#/Vol] 284 10*3/uL 150-450 [facility] Potassium measurementOrdered By: Reji Smith on 09-20-2024 Potassium [Moles/Vol] 3.8 mmol/L 3.5-5.1 [facility] RBC Auto (Bld) [#/Vol]Ordere d By: Reji Smith on 09-20-2024 RBC (Bld) [#/Vol] 5.45 10*6/uL 4.6-6.2 [facility] Serum anion gap measurementO rdered By: Reji Smith on 09-20-2024 Anion gap [Moles/Vol] 8 mmol/L 5-15 [facility] Serum or plasma calcium nahomy urement (mass/volume)Ordered By: Reji Smith on 09-20-2024 Calcium [Mass/Vol] 9.5 mg/dL 8.5-10.1 [facility] Serum or plasma creatinine m easurement (mass/volume)Ordered By: Reji Smith on 09-20-2024 Creatinine [Mass/Vol] 1.26 mg/dL 0.70-1.30 [facility] Comment on above: The validity of the calculated GFR & GFRAA in patients over 70 years has not been determined. Clinical correlation is essential. Serum or plasma urea nitroge n measurement (mass/volume)Ordered By: Reji Smith on 09-20-2024 Urea nitrogen [Mass/Vol] 27 mg/dL High 04-03 [facility] Sodium levelOrdered By: Reji Smith on 09-20-2024 Sodium [Moles/Vol] 137 mmol/L 136-145 [facility] Troponin IOrdered By: Reji sawyer on 09-20-2024 Troponin I High Sensitivity 8 pg/mL 3.0-78.0 [facility] Comment on above: Please Note: New Carmen t Units and Gender Specific Reference Ranges. For more information see Policy Stat Procedure Orient High Sensitivity Troponin (TNIH) and attachments. White blood cell (WBC) count Ordered By: Reji Smith on 09-20-2024 WBC (Bld) [#/Vol] 11.4 10*3/uL High 4.4-11.0 [facility] [place] Cardiology Visit Reporton Cardiology Visit Report Normal [facility] Urine Cultureon 09-02-2024 URC Mixed Gram Positive Organisms English Count 80,000-100,000 MIXC Mixed contaminants. Submit a new specimen if indicated. Normal [facility] Comment on above: Performed By: #### M 100.2200 ####[facility] [address] [place], [address] 12 Lead EKGon 09-01-2024 12 Lead EKG Normal [facility] Abdomen/Pelvis W IV Cont ONL Yon 09-01-2024 Abdomen/Pelvis W IV Cont ONLY Normal [facility] Absolute neutrophil countOrd ered By: Mani Esquivel on 09-01-2024 Neutrophils (Bld) [#/Vol] 7.5 10*3/uL 2.0-7.7 [facility] Basic Metabolic Profile (BMP )on 09-01-2024 BUN/CRE 28.1 RATIO High - [facility] Comment on above: Order Comment: 'TROP ' Serial specimen #1, #2 or #3: 1 Performed By: #### L 501.5200, L500.2500, L100.0100, L501.4020 ####[facility] [address] [place], [address] CA,Total 9.3 mg/dL Normal 8.5-10.1 [facility] Comment on above: Order Comment: 'TROP ' Serial specimen #1, #2 or #3: 1 Performed By: #### L 501.5200, L500.2500, L100.0100, L501.4020 ####[facility] [address] [place], [address] Chloride [Moles/Vol] 106 mmol/L Normal 98-107 [facility] Comment on above: Order Comment: 'TROP ' Serial specimen #1, #2 or #3: 1 Performed By: #### L 501.5200, L500.2500, L100.0100, L501.4020 ####[facility] [address] [place], [address] CO2 [Moles/Vol] 24.0 mmol/L Normal 21.0-32.0 [facility] Comment on above: Order Comment: 'TROP ' Serial specimen #1, #2 or #3: 1 Performed By: #### L 501.5200, L500.2500, L100.0100, L501.4020 ####[facility] [address] [place], [address] Creatinine [Mass/Vol] 1.14 mg/dL Normal 0.70-1.30 [facility] Comment on above: Order Comment: 'TROP ' Serial specimen #1, #2 or #3: 1 Result Comment: The validity of the calculated GFR GFRAA in patients over70 years has not been determined. Clinical correlation isessential. Performed By: #### L 501.5200, L500.2500, L100.0100, L501.4020 ####[facility] [address] [place], [address] ECRCL 73.93 ml/min Normal [facility] Comment on above: Order Comment: 'TROP ' Serial specimen #1, #2 or #3: 1 Performed By: #### L 501.5200, L500.2500, L100.0100, L501.4020 ####[facility] [address] [place], [address] EST GFR - AA 79 mL/min Normal >60 [facility] Comment on above: Order Comment: 'TROP ' Serial specimen #1, #2 or #3: 1 Result Comment: Afri can Kuwaiti GFR Calc Performed By: #### L 501.5200, L500.2500, L100.0100, L501.4020 ####[facility] [address] [place], [address] GAP 7 Normal 5-15 [facility] Comment on above: Order Comment: 'TROP ' Serial specimen #1, #2 or #3: 1 Performed By: #### L 501.5200, L500.2500, L100.0100, L501.4020 ####[facility] [address] [place], [address] GFR/1.73 sq M.predicted among non-blacks MDRD (S/P/Bld) [Vol rate/Area] 66 mL/min/{1.73_m2} Normal >60 [facility] Comment on above: Order Comment: 'TROP ' Serial specimen #1, #2 or #3: 1 Result Comment: Non- GFR Calc Performed By: #### L 501.5200, L500.2500, L100.0100, L501.4020 ####[facility] [address] [place], [address] Glucose [Mass/Vol] 98 mg/dL Normal 74-106 [facility] Comment on above: Order Comment: 'TROP ' Serial specimen #1, #2 or #3: 1 Performed By: #### L 501.5200, L500.2500, L100.0100, L501.4020 ####[facility] [address] [place], [address] Potassium [Moles/Vol] 3.6 mmol/L Normal 3.5-5.1 [facility] Comment on above: Order Comment: 'TROP ' Serial specimen #1, #2 or #3: 1 Performed By: #### L 501.5200, L500.2500, L100.0100, L501.4020 ####[facility] [address] [place], [address] Sodium [Moles/Vol] 138 mmol/L Normal 136-145 [facility] Comment on above: Order Comment: 'TROP ' Serial specimen #1, #2 or #3: 1 Performed By: #### L 501.5200, L500.2500, L100.0100, L501.4020 ####[facility] [address] [place], [address] Urea nitrogen [Mass/Vol] 32 mg/dL High - [facility] Comment on above: Order Comment: 'TROP ' Serial specimen #1, #2 or #3: 1 Performed By: #### L 501.5200, L500.2500, L100.0100, L501.4020 ####[facility] [address] [place], [address] Basophil percentageOrdered B y: Mani Esquivel on 09-01-2024 Basophils/100 WBC (Bld) 0.4 % 0-1 [facility] Bilirubin Test strip Ql (U)O rdered By: Mani Esquivel on 09-01-2024 Bilirubin Ql (U) Negative Negative [facility] Blood urea nitrogen (BUN)/cr eatinine ratioOrdered By: Mani Esquivel on 09-01-2024 Urea nitrogen/Creatinine [Mass ratio] 28.1 mg/mg High 10-20 [facility] CBC W/Diff, Automatedon 08-17 Absolute Lymph 2.06 X10 3/uL Normal 0.83-4.51 [facility] Comment on above: Performed By: #### L 501.5200, L500.2500, L100.0100, L501.4020 ####[facility] [address] [place], [address] Absolute Neut 7.5 X10 3/uL Normal 2.0-7.7 [facility] Comment on above: Performed By: #### L 501.5200, L500.2500, L100.0100, L501.4020 ####[facility] [address] [place], [address] Basophils/100 WBC (Bld) 0.4 % Normal 0-1 [facility] Comment on above: Performed By: #### L 501.5200, L500.2500, L100.0100, L501.4020 ####[facility] [address] [place], [address] Eosinophils/100 WBC (Bld) 2.9 % Normal 0-5 [facility] Comment on above: Performed By: #### L 501.5200, L500.2500, L100.0100, L501.4020 ####[facility] [address] [place], [address] Erythrocyte distribution width (RBC) [Ratio] 15.3 % High 11.6-14.6 [facility] Comment on above: Performed By: #### L 501.5200, L500.2500, L100.0100, L501.4020 ####[facility] [address] [place], [address] Hematocrit (Bld) [Volume fraction] 41.4 % Normal 40-54 [facility] Comment on above: Performed By: #### L 501.5200, L500.2500, L100.0100, L501.4020 ####[facility] [address] [place], [address] Hemoglobin (Bld) [Mass/Vol] 13.1 g/dL Normal 13.0-16. 5 [facility] Comment on above: Performed By: #### L 501.5200, L500.2500, L100.0100, L501.4020 ####[facility] [address] [place], [address] IG% 0.300 Normal 0.0-0.9 [facility] Comment on above: Result Comment: IG% - Immature Granulocytes (promyelocytes, myelocytes andmetamyelocytes) > 1% indicates that a LEFT SHIFT is Present. Performed By: #### L 501.5200, L500.2500, L100.0100, L501.4020 ####[facility] [address] [place], [address] Lymphocytes/100 WBC (Bld) 18.2 % Low 19-41 [facility] Comment on above: Performed By: #### L 501.5200, L500.2500, L100.0100, L501.4020 ####[facility] [address] [place], [address] MCH (RBC) [Entitic mass] 26.2 pg Low 27.0-32.0 [facility] Comment on above: Performed By: #### L 501.5200, L500.2500, L100.0100, L501.4020 ####[facility] [address] [place], [address] MCHC (RBC) [Mass/Vol] 31.6 g/dL Low 32-36 [facility] Comment on above: Performed By: #### L 501.5200, L500.2500, L100.0100, L501.4020 ####[facility] [address] [place], [address] MCV (RBC) [Entitic vol] 82.8 fL Normal 80-94 [facility] Comment on above: Performed By: #### L 501.5200, L500.2500, L100.0100, L501.4020 ####[facility] [address] [place], [address] Monocytes/100 WBC (Bld) 11.8 % High 0-10 [facility] Comment on above: Performed By: #### L 501.5200, L500.2500, L100.0100, L501.4020 ####[facility] [address] [place], [address] Neutrophils/100 WBC (Bld) 66.4 % Normal 47-70 [facility] Comment on above: Performed By: #### L 501.5200, L500.2500, L100.0100, L501.4020 ####[facility] [address] [place], [address] Nucleated RBC (Bld) [#/Vol] 0 10*3/uL Normal 0-5 [facility] Comment on above: Performed By: #### L 501.5200, L500.2500, L100.0100, L501.4020 ####[facility] [address] [place], [address] Platelet mean volume (Bld) [Entitic vol] 11.2 fL Normal 6.2-12.0 [facility] Comment on above: Performed By: #### L 501.5200, L500.2500, L100.0100, L501.4020 ####[facility] [address] [place], [address] Platelets (Bld) [#/Vol] 301 10*3/uL Normal 150-450 [facility] Comment on above: Performed By: #### L 501.5200, L500.2500, L100.0100, L501.4020 ####[facility] [address] [place], [address] RBC (Bld) [#/Vol] 5.00 10*6/uL Normal 4.6-6.2 [facility] Comment on above: Performed By: #### L 501.5200, L500.2500, L100.0100, L501.4020 ####[facility] [address] [place], [address] RDW SD 46.0 fl High 35.1-43.9 [facility] Comment on above: Performed By: #### L 501.5200, L500.2500, L100.0100, L501.4020 ####[facility] [address] [place], [address] WBC (Bld) [#/Vol] 11.3 10*3/uL High 4.4-11.0 [facility] Comment on above: Performed By: #### L 501.5200, L500.2500, L100.0100, L501.4020 ####[facility] [address] [place], [address] Carbon dioxide measurementOr dered By: Mani Esquivel on 09-01-2024 CO2 [Moles/Vol] 24.0 mmol/L 21.0-32.0 [facility] Chest PA and Lateralon 09-01 Chest PA and Lateral Normal [facility] Chloride measurementOrdered By: Mani Esquivel on 09-01-2024 Chloride [Moles/Vol] 106 mmol/L 98-107 [facility] Emergency Department Summary on 09-01-2024 Emergency Department Summary Normal [facility] Eosinophil percentageOrdered By: Mani Esquivel on 09-01-2024 Eosinophils/100 WBC (Bld) 2.9 % 0-5 [facility] Epithelial cells.squamous LM Ql (Urine sed)Ordered By: Mani Esquivel on 09-01-2024 Epithelial cells.squamous LM.HPF (Urine sed) [#/Area] 5 /[HPF] 0-5 [facility] Erythrocyte distribution wid th ratioOrdered By: Mani Esquivel on 09-01-2024 Erythrocyte distribution width (RBC) [Ratio] 15.3 % High 11.6-14.6 [facility] Erythrocyte distribution wid th standard deviationOrdered By: Mani Esquivel on 09-01-2024 Erythrocyte distribution width (RBC) [Entitic vol] 46.0 fL High 35.1-43.9 [facility] Estimated glomerular filtrat ion rate (GFR) AmericanOrdered By: Mani Esquivel on 09-01-2024 Estimated GFR (MDRD) Amer 79 mL/min >60 [facility] Comment on above: GFR Calc Estimation of creatinine ashley aranceOrdered By: Mani Esquivel on 09-01-2024 Estimated Creatinine Clearance Calc 73.93 ml/min [facility] Glomerular filtration rate ( GFR) estimationOrdered By: Mani Esquivel on 09-01-2024 Estimated GFR (MDRD) Non-Af Amer 66 mL/min >60 [facility] Comment on above: Non- GFR Calc Glucose Ql (U)Ordered By: Brigitte Esquivel on 09-01-2024 Glucose (U) [Mass/Vol] 1000 mg/dL High Normal [facility] Glucose measurementOrdered B y: Mani Esquivel on 09-01-2024 Glucose [Mass/Vol] 98 mg/dL 74-106 [facility] Hematocrit Auto (Bld) [Volum e fraction]Ordered By: Mani Esquivel on 09-01-2024 Hematocrit (Bld) [Volume fraction] 41.4 % 40-54 [facility] Hemoglobin measurementOrdere d By: Mani Esquivel on 09-01-2024 Hemoglobin (Bld) [Mass/Vol] 13.1 g/dL 13.0-16. 5 [facility] Immature granulocytes/100 WB C Auto (Bld)Ordered By: Mani Esquivel on 09-01-2024 Immature granulocytes/100 WBC (Bld) 0.300 % 0.0-0.9 [facility] Comment on above: IG% - Immature Granu locytes (promyelocytes, myelocytes and metamyelocytes) > 1% indicates that a LEFT SHIFT is Present. Ketones Test strip Ql (U)Ord ered By: Mani Esquivel on 09-01-2024 Ketones Ql (U) Negative Negative [facility] L501.4020on 09-01-2024 TROPONIN-I HS 11 pg/mL Normal 3.0-78.0 [facility] Comment on above: Order Comment: 'TROP ' Serial specimen #1, #2 or #3: 2 Result Comment: Plea se Note: New Test Units and Gender Specific Reference Ranges. For more information see Policy Stat Procedure Orient High Sensitivity Troponin (TNIH) and attachments. Performed By: #### L 501.4020 ####[facility] [address] [place], [address] TROPONIN-I HS 10 pg/mL Normal 3.0-78.0 [facility] Comment on above: Order Comment: 'TROP ' Serial specimen #1, #2 or #3: 1 Result Comment: Plea se Note: New Test Units and Gender Specific Reference Ranges. For more information see Policy Stat Procedure Orient High Sensitivity Troponin (TNIH) and attachments. Performed By: #### L 501.5200, L500.2500, L100.0100, L501.4020 ####[facility] [address] [place], [address] Lymphocytes Auto (Unsp spec) [#/Vol]Ordered By: Mani Esquivel on 09-01-2024 Lymphocytes (Bld) [#/Vol] 2.06 10*3/uL 0.83-4.5 1 [facility] Lymphocytes/100 WBC Auto (Un sp spec)Ordered By: Mani Esquivel on 09-01-2024 Lymphocytes/100 WBC (Bld) 18.2 % Low 19-41 [facility] MCV (mean corpuscular volume ) determinationOrdered By: Mani Esquivel on 09-01-2024 MCV (RBC) [Entitic vol] 82.8 fL 80-94 [facility] Magnesiumon 09-01-2024 Magnesium [Mass/Vol] 2.2 mg/dL Normal 1.6-2.6 [facility] Comment on above: Order Comment: 'TROP ' Serial specimen #1, #2 or #3: 1 Performed By: #### L 501.5200, L500.2500, L100.0100, L501.4020 ####[facility] [address] [place], [address] Magnesium measurementOrdered By: Mani Esquivel on 09-01-2024 Magnesium [Mass/Vol] 2.2 mg/dL 1.6-2.6 [facility] Mean corpuscular hemoglobin (MCH) determinationOrdered By: Mani Esquivel on 09-01-2024 MCH (RBC) [Entitic mass] 26.2 pg Low 27.0-32.0 [facility] Mean corpuscular hemoglobin concentration (MCHC) determinationOrdered By: Mani Esquivel on 09-01-2024 MCHC (RBC) [Mass/Vol] 31.6 g/dL Low 32-36 [facility] Mean platelet volume determi nationOrdered By: Mani Esquivel on 09-01-2024 Platelet mean volume (Bld) [Entitic vol] 11.2 fL 6.2-12.0 [facility] Microscopic analysis of urin e for red blood cells (RBC)Ordered By: Mani Esquivel on 09-01-2024 Urine RBC 10-25 SEEN /hpf 0-5 [facility] Monocyte percentageOrdered B y: Mani Esquivel on 09-01-2024 Monocytes/100 WBC (Bld) 11.8 % High 0-10 [facility] Mucus LM Ql (Urine sed)Order ed By: Mani Esquivel on 09-01-2024 Mucus Ql (Urine sed) 0 SEEN /hpf [facility] Neutrophil percentageOrdered By: Mani Esquivel on 09-01-2024 Neutrophils/100 WBC (Bld) 66.4 % 47-70 [facility] Nitrite Test strip Ql (U)Ord ered By: Mani Esquivel on 09-01-2024 Nitrite Ql (U) Negative Negative [facility] Nucleated red blood cell per centageOrdered By: Mani Esquivel on 09-01-2024 Nucleated RBC/100 WBC (Bld) [Ratio] 0 % 0-5 [facility] Platelet countOrdered By: Brigitte Esquivel on 09-01-2024 Platelets (Bld) [#/Vol] 301 10*3/uL 150-450 [facility] Potassium measurementOrdered By: Mani Esquivel on 09-01-2024 Potassium [Moles/Vol] 3.6 mmol/L 3.5-5.1 [facility] Protein Test strip Ql (U)Ord ered By: Mani Esquivel on 09-01-2024 Protein Ql (U) 30 mg/dl High Negative [facility] RBC Auto (Bld) [#/Vol]Ordere d By: Mani Esquivel on 09-01-2024 RBC (Bld) [#/Vol] 5.00 10*6/uL 4.6-6.2 [facility] Serum anion gap measurementO rdered By: Mani Esquivel on 09-01-2024 Anion gap [Moles/Vol] 7 mmol/L 5-15 [facility] Serum or plasma calcium nahomy urement (mass/volume)Ordered By: Mani Esquivel on 09-01-2024 Calcium [Mass/Vol] 9.3 mg/dL 8.5-10.1 [facility] Serum or plasma creatinine m easurement (mass/volume)Ordered By: Mani Esquivel on 09-01-2024 Creatinine [Mass/Vol] 1.14 mg/dL 0.70-1.30 [facility] Comment on above: The validity of the calculated GFR & GFRAA in patients over 70 years has not been determined. Clinical correlation is essential. Serum or plasma urea nitroge n measurement (mass/volume)Ordered By: Mani Esquivel on 09-01-2024 Urea nitrogen [Mass/Vol] 32 mg/dL High 7-18 [facility] Sodium levelOrdered By: Lit Esquivel on 09-01-2024 Sodium [Moles/Vol] 138 mmol/L 136-145 [facility] Troponin IOrdered By: Mani Esquivel on 09-01-2024 Troponin I High Sensitivity 11 pg/mL 3.0-78.0 [facility] Comment on above: Please Note: New Carmen t Units and Gender Specific Reference Ranges. For more information see Policy Stat Procedure Orient High Sensitivity Troponin (TNIH) and attachments. Urinalysis, Completeon 09-01 BACTERIA 4+ /hpf Normal None Seen [facility] Comment on above: Order Comment: COLLE CTOR TO SPECIFY Performed By: #### L 400.0001 ####[facility] [address] [place], [address] EPI,SQUAMOUS 5-10 SEEN Normal 0-5 [facility] Comment on above: Order Comment: GO CTOR TO SPECIFY Performed By: #### L 400.0001 ####[facility] [address] [place], [address] RBC 10-25 SEEN Normal 0-5 [facility] Comment on above: Order Comment: GO CTOR TO SPECIFY Performed By: #### L 400.0001 ####[facility] [address] [place], [address] WBC 25-50 SEEN Normal 0-5 [facility] Comment on above: Order Comment: GO CTOR TO SPECIFY Performed By: #### L 400.0001 ####[facility] [address] [place], [address] Mucus Ql (Urine sed) 0 SEEN Normal [facility] Comment on above: Order Comment: GO CTOR TO SPECIFY Performed By: #### L 400.0001 ####[facility] [address] [place], [address] Urine blood detectionOrdered By: Mani Esquivel on 09-01-2024 Urine Occult Blood 150 /ul High Negative [facility] Urine clarityOrdered By: Rashel Esquivel on 09-01-2024 Clarity (U) Cloudy Clear [facility] Urine color determinationOrd ered By: Mani Esquivel on 09-01-2024 Color (U) Yellow Yellow [facility] Urine cultureOrdered By: Rashel Esquivel on 09-01-2024 Bacteria identified Cx Nom (U) Positive Abnormal [facility] Urine leukocyte esterase det ection by dipstickOrdered By: Mani Esquivel on 09-01-2024 Leukocyte esterase Test strip Ql (U) 500 /ul High Negative [facility] Urine pHOrdered By: Mani khanna on 09-01-2024 pH (U) 5.0 [pH] 5.0 - 8.0 [facility] Urine sediment bacteria coun t by microscopy (number/high power field)Ordered By: Mani Esquivel on 09-01-2024 Bacteria LM.HPF (Urine sed) [#/Area] 4 /[HPF] None Seen [facility] Urine specific gravity measu rementOrdered By: Mani Esquivel on 09-01-2024 Specific gravity (U) [Rel density] 1.025 1.002-1.030 [facility] Urobilinogen Ql (U)Ordered B y: Mani Esquivel on 09-01-2024 Urine Urobilinogen Normal mg/dl Normal [facility] White blood cell (WBC) count Ordered By: Mani Esquivel on 09-01-2024 WBC (Bld) [#/Vol] 11.3 10*3/uL High 4.4-11.0 [facility] White blood cell countOrdere d By: Mani Esquivel on 09-01-2024 Urine WBC 25-50 SEEN /hpf 0-5 [facility] FAISAL ALARCON ([id number]) 1945 M Date Time Provider Department [facility] During [facility], we recorded the following information about you: Kristina Higuera LPN 08/18/2024 12:58 PM Signed Kate with [facility] [facility] check on status of order form that was faxed last week for DexMobilligy G7. Kate is asking if office did not receive order form if office would call back and let them know. DENISE Haro Tara, LPN 08/18/2024 1:15 PM Signed We did and faxed it back. Will fax again today. Allergies As of Date: 08/18/2024 Noted Allergy Reaction AMOXICILLIN 05/11/2005 Comments: generalized erythema Date Reviewed: 07/29/2024 Reviewed by: Julianna Hood APRN.PCU RN - Fully Assessed Reason for Visit: Orders [...] - Blood-Glucose Meter,Continuous (FREESTYLE MARIELLE 3 READER) [facility] Use to check blood sugar at least [...] mouth every 12 hours. 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 - finasteride (PROSCAR) 5 mg tablet - aspirin 81 mg chewable tablet Take 81 mg by mouth once daily. - insulin needles, DISPOSABLE, (1ST TIER UNIFINE PENTIPS) 31 gauge x 5/16" ndle 1 Each once daily. DX: E11.9 Insulin: Yes - Insulin Syringe-Needle U-100 1/2 mL 29 x 1/2" syrg 1 Each once daily. USE ONE [...] polyps [Z (more content not included)... [facility] FAISAL ALARCON ([id number]) 1945 Date Time Provider Department 08/15/24 MATHIEU VIRGEN [facility] During your visit today, we recorded the following information about you: Angelina Bliss RN 08/15/2024 9:05 AM Signed Summer calling with [employer], the company assisting patient with Dexcom G7 CGM. Requesting recent OV note to further proceed with pt's CGM order. Faxed as requested to [phone]. Angelina Bliss RN Allergies As of Date: 08/15/2024 Noted Allergy Reaction AMOXICILLIN 05/11/2005 Comments: generalized erythema Date Reviewed: 07/29/2024 Reviewed by: Julianna Hood APRN.PCU RN - Fully Assessed Reason for Visit: CGM [...] - Blood-Glucose Meter,Continuous (FREESTYLE MARIELLE 3 READER) [facility] Use to check blood sugar at least [...] times a day before meals. Getting through [facility] - dilTIAZem CD (CARDIZEM CD, CARTIA XT) [...] mouth every 12 hours. 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 - finasteride (PROSCAR) 5 mg tablet - aspirin 81 mg chewable tablet Take 81 mg by mouth once daily. - insulin needles, DISPOSABLE, (1ST TIER UNIFINE PENTIPS) 31 gauge x 5/16" ndle 1 Each once daily. DX: E11.9 Insulin: Yes - Insulin Syringe-Needle U-100 1/2 mL 29 x 1/2" syrg 1 Each once daily. USE ONE [...] Left low (more content not included)... Normal [facility] Cardiology Visit Reporton Cardiology Visit Report Normal [facility] Absolute neutrophil countOrd ered By: Sergey Carreon on 08-11-2024 Neutrophils (Bld) [#/Vol] 8.0 10*3/uL High 2.0-7.7 [facility] Albumin to globulin ratioOrd ered By: Sergey Carreon on 08-11-2024 Albumin/Globulin [Mass ratio] 0.9 {ratio} 0.9-2.4 [facility] Basophil percentageOrdered B y: Sergey Carreon on 08-11-2024 Basophils/100 WBC (Bld) 0.4 % 0-1 [facility] Bilirubin, totalOrdered By: Sergey Carreon on 08-11-2024 Bilirubin [Mass/Vol] 0.30 mg/dL 0.20-1.00 [facility] Comment on above: For patients on eltr ombopag therapy, use of Dimension Orient TBIL is not recommended. Blood urea nitrogen (BUN)/cr eatinine ratioOrdered By: Sergey Carreon on 08-11-2024 Urea nitrogen/Creatinine [Mass ratio] 25.5 mg/mg High 10-20 [facility] CBC W/Diff, Automatedon 07-19 Absolute Lymph 1.24 X10 3/uL Normal 0.83-4.51 [facility] Comment on above: Performed By: #### L 501.5200, L501.9520, L100.0100, L500.4050 ####[facility] [address] [place], [address] Absolute Neut 8.0 X10 3/uL High 2.0-7.7 [facility] Comment on above: Performed By: #### L 501.5200, L501.9520, L100.0100, L500.4050 ####[facility] [address] [place], [address] Basophils/100 WBC (Bld) 0.4 % Normal 0-1 [facility] Comment on above: Performed By: #### L 501.5200, L501.9520, L100.0100, L500.4050 ####[facility] [address] [place], [address] Eosinophils/100 WBC (Bld) 2.3 % Normal 0-5 [facility] Comment on above: Performed By: #### L 501.5200, L501.9520, L100.0100, L500.4050 ####[facility] [address] [place], [address] Erythrocyte distribution width (RBC) [Ratio] 14.5 % Normal 11.6-14.6 [facility] Comment on above: Performed By: #### L 501.5200, L501.9520, L100.0100, L500.4050 ####[facility] [address] [place], [address] Hematocrit (Bld) [Volume fraction] 42.3 % Normal 40-54 [facility] Comment on above: Performed By: #### L 501.5200, L501.9520, L100.0100, L500.4050 ####[facility] [address] [place], [address] Hemoglobin (Bld) [Mass/Vol] 13.4 g/dL Normal 13.0-16. 5 [facility] Comment on above: Performed By: #### L 501.5200, L501.9520, L100.0100, L500.4050 ####[facility] [address] [place], [address] IG% 0.500 Normal 0.0-0.9 [facility] Comment on above: Result Comment: IG% - Immature Granulocytes (promyelocytes, myelocytes andmetamyelocytes) > 1% indicates that a LEFT SHIFT is Present. Performed By: #### L 501.5200, L501.9520, L100.0100, L500.4050 ####[facility] [address] [place], [address] Lymphocytes/100 WBC (Bld) 11.8 % Low 19-41 [facility] Comment on above: Performed By: #### L 501.5200, L501.9520, L100.0100, L500.4050 ####[facility] [address] [place], [address] MCH (RBC) [Entitic mass] 26.4 pg Low 27.0-32.0 [facility] Comment on above: Performed By: #### L 501.5200, L501.9520, L100.0100, L500.4050 ####[facility] [address] [place], [address] MCHC (RBC) [Mass/Vol] 31.7 g/dL Low 32-36 [facility] Comment on above: Performed By: #### L 501.5200, L501.9520, L100.0100, L500.4050 ####[facility] [address] [place], [address] MCV (RBC) [Entitic vol] 83.3 fL Normal 80-94 [facility] Comment on above: Performed By: #### L 501.5200, L501.9520, L100.0100, L500.4050 ####[facility] [address] [place], [address] Monocytes/100 WBC (Bld) 9.3 % Normal 0-10 [facility] Comment on above: Performed By: #### L 501.5200, L501.9520, L100.0100, L500.4050 ####[facility] [address] [place], [address] Neutrophils/100 WBC (Bld) 75.7 % High 47-70 [facility] Comment on above: Performed By: #### L 501.5200, L501.9520, L100.0100, L500.4050 ####[facility] [address] [place], [address] Nucleated RBC (Bld) [#/Vol] 0 10*3/uL Normal 0-5 [facility] Comment on above: Performed By: #### L 501.5200, L501.9520, L100.0100, L500.4050 ####[facility] [address] [place], [address] Platelet mean volume (Bld) [Entitic vol] 11.4 fL Normal 6.2-12.0 [facility] Comment on above: Performed By: #### L 501.5200, L501.9520, L100.0100, L500.4050 ####[facility] [address] [place], [address] Platelets (Bld) [#/Vol] 241 10*3/uL Normal 150-450 [facility] Comment on above: Performed By: #### L 501.5200, L501.9520, L100.0100, L500.4050 ####[facility] [address] [place], [address] RBC (Bld) [#/Vol] 5.08 10*6/uL Normal 4.6-6.2 [facility] Comment on above: Performed By: #### L 501.5200, L501.9520, L100.0100, L500.4050 ####[facility] [address] [place], [address] RDW SD 43.5 fl Normal 35.1-43.9 [facility] Comment on above: Performed By: #### L 501.5200, L501.9520, L100.0100, L500.4050 ####[facility] [address] [place], [address] WBC (Bld) [#/Vol] 10.6 10*3/uL Normal 4.4-11.0 [facility] Comment on above: Performed By: #### L 501.5200, L501.9520, L100.0100, L500.4050 ####[facility] [address] [place], [address] [facility] ([facility]) FAISAL ALARCON ([id number]) 1945 M Date Time Provider Department 08/11/24 MATHIEU VIRGEN [facility] During your visit today, we recorded [...] Date Reviewed: 07/29/2024 Reviewed by: Julianna Hood APRN.PCU RN - Fully Assessed Reason for Visit: [...] - Blood-Glucose Meter,Continuous (FREESTYLE MARIELLE 3 READER) [facility] Use to check blood sugar at least [...] mouth every 12 hours. 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 - finasteride (PROSCAR) 5 mg tablet - aspirin 81 mg chewable tablet Take 81 mg by mouth once daily. - insulin needles, DISPOSABLE, (1ST TIER UNIFINE PENTIPS) 31 gauge x 5/16" ndle 1 Each once daily. DX: E11.9 Insulin: Yes - Insulin Syringe-Needle U-100 1/2 mL 29 x 1/2" syrg 1 Each once daily. USE ONE [...] atrial fibrillatio (more content not included)... Normal [facility] Carbon dioxide measurementOr dered By: Sergey Carreon on 08-11-2024 CO2 [Moles/Vol] 25.0 mmol/L 21.0-32.0 [facility] Chloride measurementOrdered By: Sergey Carreon on 08-11-2024 Chloride [Moles/Vol] 104 mmol/L 98-107 [facility] Comprehensive Metabolic Prof ilon 08-11-2024 Albumin [Mass/Vol] 3.6 g/dL Normal 3.2-5.0 [facility] Comment on above: Performed By: #### L 501.5200, L501.9520, L100.0100, L500.4050 ####[facility] [address] [place], [place], [id number] Albumin/Globulin [Mass ratio] 0.9 {ratio} Normal 0.9-2.4 [facility] Comment on above: Performed By: #### L 501.5200, L501.9520, L100.0100, L500.4050 ####[facility] [address] [place], [address] ALK P 91 U/L Normal 45-117 [facility] Comment on above: Performed By: #### L 501.5200, L501.9520, L100.0100, L500.4050 ####[facility] [address] [place], [address] ALT [Catalytic activity/Vol] 19 U/L Normal 16-61 [facility] Comment on above: Performed By: #### L 501.5200, L501.9520, L100.0100, L500.4050 ####[facility] [address] [place], [address] AST [Catalytic activity/Vol] 14 U/L Low 15-37 [facility] Comment on above: Performed By: #### L 501.5200, L501.9520, L100.0100, L500.4050 ####[facility] [address] [place], [address] Bilirubin [Mass/Vol] 0.30 mg/dL Normal 0.20-1.00 [facility] Comment on above: Result Comment: For patients on eltrombopag therapy, use of Dimension Orient TBIL is not recommended. Performed By: #### L 501.5200, L501.9520, L100.0100, L500.4050 ####[facility] [address] [place], [address] BUN/CRE 25.5 RATIO High 10-20 [facility] Comment on above: Performed By: #### L 501.5200, L501.9520, L100.0100, L500.4050 ####[facility] [address] [place], [address] CA,Total 9.6 mg/dL Normal 8.5-10.1 [facility] Comment on above: Performed By: #### L 501.5200, L501.9520, L100.0100, L500.4050 ####[facility] [address] [place], [address] Chloride [Moles/Vol] 104 mmol/L Normal 98-107 [facility] Comment on above: Performed By: #### L 501.5200, L501.9520, L100.0100, L500.4050 ####[facility] [address] [place], [address] CO2 [Moles/Vol] 25.0 mmol/L Normal 21.0-32.0 [facility] Comment on above: Performed By: #### L 501.5200, L501.9520, L100.0100, L500.4050 ####[facility] [address] [place], [address] Creatinine [Mass/Vol] 1.37 mg/dL High 0.70-1.30 [facility] Comment on above: Result Comment: The validity of the calculated GFR GFRAA in patients over70 years has not been determined. Clinical correlation isessential. Performed By: #### L 501.5200, L501.9520, L100.0100, L500.4050 ####[facility] [address] [place], [address] EST GFR - AA 64 mL/min Normal >60 [facility] Comment on above: Result Comment: Afri can Kuwaiti GFR Calc Performed By: #### L 501.5200, L501.9520, L100.0100, L500.4050 ####[facility] [address] [place], [address] GAP 8 Normal 5-15 [facility] Comment on above: Performed By: #### L 501.5200, L501.9520, L100.0100, L500.4050 ####[facility] [address] [place], [address] GFR/1.73 sq M.predicted among non-blacks MDRD (S/P/Bld) [Vol rate/Area] 53 mL/min/{1.73_m2} Low >60 [facility] Comment on above: Result Comment: Non- GFR Calc Performed By: #### L 501.5200, L501.9520, L100.0100, L500.4050 ####[facility] [address] [place], [address] Globulin (S) [Mass/Vol] 3.9 g/dL Normal 2.2-4.2 [facility] Comment on above: Performed By: #### L 501.5200, L501.9520, L100.0100, L500.4050 ####[facility] [address] [place], [address] Glucose [Mass/Vol] 168 mg/dL High 74-106 [facility] Comment on above: Result Comment: Fast ing Glucose result greater than or equal to 126 mg/dLsuggests DIABETES MELLITUS per A.D.A. criteria. Performed By: #### L 501.5200, L501.9520, L100.0100, L500.4050 ####[facility] [address] [place], [address] Potassium [Moles/Vol] 4.2 mmol/L Normal 3.5-5.1 [facility] Comment on above: Performed By: #### L 501.5200, L501.9520, L100.0100, L500.4050 ####[facility] [address] [place], [address] Sodium [Moles/Vol] 136 mmol/L Normal 136-145 [facility] Comment on above: Performed By: #### L 501.5200, L501.9520, L100.0100, L500.4050 ####[facility] [address] [place], [address] T PROT 7.5 g/dL Normal 6.4-8.2 [facility] Comment on above: Performed By: #### L 501.5200, L501.9520, L100.0100, L500.4050 ####[facility] [address] [place], [address] Urea nitrogen [Mass/Vol] 35 mg/dL High 7-18 [facility] Comment on above: Performed By: #### L 501.5200, L501.9520, L100.0100, L500.4050 ####[facility] [address] [place], [address] Eosinophil percentageOrdered By: Sergey Carreon on 08-11-2024 Eosinophils/100 WBC (Bld) 2.3 % 0-5 [facility] Erythrocyte distribution wid th ratioOrdered By: Sergey Carreon on 08-11-2024 Erythrocyte distribution width (RBC) [Ratio] 14.5 % 11.6-14.6 [facility] Erythrocyte distribution wid th standard deviationOrdered By: Sergey Carreon on 08-11-2024 Erythrocyte distribution width (RBC) [Entitic vol] 43.5 fL 35.1-43.9 [facility] Estimated glomerular filtrat ion rate (GFR) AmericanOrdered By: Sergey Carreon on 08-11-2024 Estimated GFR (MDRD) Amer 64 mL/min >60 [facility] Comment on above: GFR Calc Glomerular filtration rate ( GFR) estimationOrdered By: Sergey Carreon on 08-11-2024 Estimated GFR (MDRD) Non-Af Amer 53 mL/min Low >60 [facility] Comment on above: Non- GFR Calc Glucose measurementOrdered B y: Sergey Carreon on 08-11-2024 Glucose [Mass/Vol] 168 mg/dL High 74-106 [facility] Comment on above: Fasting Glucose resu lt greater than or equal to 126 mg/dL suggests DIABETES MELLITUS per A.D.A. criteria. Hematocrit Auto (Bld) [Volum e fraction]Ordered By: Sergey Carreon on 08-11-2024 Hematocrit (Bld) [Volume fraction] 42.3 % 40-54 [facility] Hemoglobin measurementOrdere d By: Sergey Carreon on 08-11-2024 Hemoglobin (Bld) [Mass/Vol] 13.4 g/dL 13.0-16. 5 [facility] Immature granulocytes/100 WB C Auto (Bld)Ordered By: Sergey Carreon on 08-11-2024 Immature granulocytes/100 WBC (Bld) 0.500 % 0.0-0.9 [facility] Comment on above: IG% - Immature Granu locytes (promyelocytes, myelocytes and metamyelocytes) > 1% indicates that a LEFT SHIFT is Present. Laboratory - Chemistry and C hemistry - challengeOrdered By: Sergey Carreon on 08-11-2024 AST [Catalytic activity/Vol] 14 U/L Low 15-37 [facility] Lymphocytes Auto (Unsp spec) [#/Vol]Ordered By: Sergey Carreon on 08-11-2024 Lymphocytes (Bld) [#/Vol] 1.24 10*3/uL 0.83-4.5 1 [facility] Lymphocytes/100 WBC Auto (Un sp spec)Ordered By: Sergey Carreon on 08-11-2024 Lymphocytes/100 WBC (Bld) 11.8 % Low 19-41 [facility] MCV (mean corpuscular volume ) determinationOrdered By: Sergey Carreon on 08-11-2024 MCV (RBC) [Entitic vol] 83.3 fL 80-94 [facility] Magnesiumon 08-11-2024 Magnesium [Mass/Vol] 2.2 mg/dL Normal 1.6-2.6 [facility] Comment on above: Performed By: #### L 501.5200, L501.9520, L100.0100, L500.4050 ####[facility] [address] [place], [place], [id number] Magnesium measurementOrdered By: Sergey Carreon on 08-11-2024 Magnesium [Mass/Vol] 2.2 mg/dL 1.6-2.6 [facility] Mean corpuscular hemoglobin (MCH) determinationOrdered By: Sergey Carreon on 08-11-2024 MCH (RBC) [Entitic mass] 26.4 pg Low 27.0-32.0 [facility] Mean corpuscular hemoglobin concentration (MCHC) determinationOrdered By: Sergey Carreon on 08-11-2024 MCHC (RBC) [Mass/Vol] 31.7 g/dL Low 32-36 [facility] Mean platelet volume determi nationOrdered By: Sergey Carreon on 08-11-2024 Platelet mean volume (Bld) [Entitic vol] 11.4 fL 6.2-12.0 [facility] Monocyte percentageOrdered B y: Sergey Carreon on 08-11-2024 Monocytes/100 WBC (Bld) 9.3 % 0-10 [facility] Neutrophil percentageOrdered By: Sergey Carreon on 08-11-2024 Neutrophils/100 WBC (Bld) 75.7 % High 47-70 [facility] Nucleated red blood cell per centageOrdered By: Sergey Carreon on 08-11-2024 Nucleated RBC/100 WBC (Bld) [Ratio] 0 % 0-5 [facility] Platelet countOrdered By: Marcelina Carreon on 08-11-2024 Platelets (Bld) [#/Vol] 241 10*3/uL 150-450 [facility] Potassium measurementOrdered By: Sergey Carreon on 08-11-2024 Potassium [Moles/Vol] 4.2 mmol/L 3.5-5.1 [facility] RBC Auto (Bld) [#/Vol]Ordere d By: Sergey Carreon on 08-11-2024 RBC (Bld) [#/Vol] 5.08 10*6/uL 4.6-6.2 [facility] Serum anion gap measurementO rdered By: Sergey Carreon on 08-11-2024 Anion gap [Moles/Vol] 8 mmol/L 5-15 [facility] Serum globulin measurementOr dered By: Sergey Carreon on 08-11-2024 Globulin (S) [Mass/Vol] 3.9 g/dL 2.2-4.2 [facility] Serum or plasma alanine cottrell otransferase (ALT) measurementOrdered By: Sergey Carreon on 08-11-2024 ALT [Catalytic activity/Vol] 19 U/L 16-61 [facility] Serum or plasma albumin nahomy urement (mass/volume)Ordered By: Sergey Carreon on 08-11-2024 Albumin [Mass/Vol] 3.6 g/dL 3.2-5.0 [facility] Serum or plasma alkaline ahsan sphatase measurementOrdered By: Sergey Carreon on 08-11-2024 ALP [Catalytic activity/Vol] 91 U/L 45-117 [facility] Serum or plasma calcium nahomy urement (mass/volume)Ordered By: Sergey Carreon on 08-11-2024 Calcium [Mass/Vol] 9.6 mg/dL 8.5-10.1 [facility] Serum or plasma creatinine m easurement (mass/volume)Ordered By: Sergey Carreon on 08-11-2024 Creatinine [Mass/Vol] 1.37 mg/dL High 0.70-1.30 [facility] Comment on above: The validity of the calculated GFR & GFRAA in patients over 70 years has not been determined. Clinical correlation is essential. Serum or plasma urea nitroge n measurement (mass/volume)Ordered By: Sergey Carreon on 08-11-2024 Urea nitrogen [Mass/Vol] 35 mg/dL High 7-18 [facility] Sodium levelOrdered By: Sergey Carreon on 08-11-2024 Sodium [Moles/Vol] 136 mmol/L 136-145 [facility] TSH QnOrdered By: Sergey Carreon on 08-11-2024 Thyroid Stimulating Hormone (TSH) 1.250 uIU/mL 0.358-3.740 [facility] Thyroid Stim Hormone (TSH)on 08-11-2024 TSH 1.250 uIU/mL Normal 0.358-3.740 [facility] Comment on above: Performed By: #### L 501.5200, L501.9520, L100.0100, L500.4050 ####[facility] [address] [facility] [place], [place], [id number] Total proteinOrdered By: Morgan Carreon on 08-11-2024 Protein [Mass/Vol] 7.5 g/dL 6.4-8.2 [facility] White blood cell (WBC) count Ordered By: Sergey Carreon on 08-11-2024 WBC (Bld) [#/Vol] 10.6 10*3/uL 4.4-11.0 [facility] Basic Metabolic Profile (BMP )on 07-31-2024 BUN/CRE 17.5 RATIO Normal 10-20 [facility] Comment on above: Performed By: #### L 501.5200, L500.2500, L100.0100 ####[facility] [address] [place], [address] CA,Total 9.0 mg/dL Normal 8.5-10.1 [facility] Comment on above: Performed By: #### L 501.5200, L500.2500, L100.0100 ####[facility] [address] [place], [address] Chloride [Moles/Vol] 107 mmol/L Normal 98-107 [facility] Comment on above: Performed By: #### L 501.5200, L500.2500, L100.0100 ####[facility] [address] [place], [address] CO2 [Moles/Vol] 27.0 mmol/L Normal 21.0-32.0 [facility] Comment on above: Performed By: #### L 501.5200, L500.2500, L100.0100 ####[facility] [address] [place], [address] Creatinine [Mass/Vol] 1.26 mg/dL Normal 0.70-1.30 [facility] Comment on above: Result Comment: The validity of the calculated GFR GFRAA in patients over70 years has not been determined. Clinical correlation isessential. Performed By: #### L 501.5200, L500.2500, L100.0100 ####[facility] [address] [place], [address] EST GFR - AA 71 mL/min Normal >60 [facility] Comment on above: Result Comment: Afri can [place] GFR Calc Performed By: #### L 501.5200, L500.2500, L100.0100 ####[facility] [address] [place], [address] GAP 7 Normal 5-15 [facility] Comment on above: Performed By: #### L 501.5200, L500.2500, L100.0100 ####[facility] [address] [place], [address] GFR/1.73 sq M.predicted among non-blacks MDRD (S/P/Bld) [Vol rate/Area] 59 mL/min/{1.73_m2} Low >60 [facility] Comment on above: Result Comment: Non- GFR Calc Performed By: #### L 501.5200, L500.2500, L100.0100 ####[facility] [address] [place], [address] Glucose [Mass/Vol] 119 mg/dL High 74-106 [facility] Comment on above: Result Comment: Fast ing Glucose result from 100 to 125 mg/dLsuggests IMPAIRED HOMEOSTASIS per A.D.A. criteria. Performed By: #### L 501.5200, L500.2500, L100.0100 ####[facility] [address] [place], [address] Potassium [Moles/Vol] 3.6 mmol/L Normal 3.5-5.1 [facility] Comment on above: Performed By: #### L 501.5200, L500.2500, L100.0100 ####[facility] [address] [place], [address] Sodium [Moles/Vol] 141 mmol/L Normal 136-145 [facility] Comment on above: Performed By: #### L 501.5200, L500.2500, L100.0100 ####[facility] [address] [place], [address] Urea nitrogen [Mass/Vol] 22 mg/dL High 7-18 [facility] Comment on above: Performed By: #### L 501.5200, L500.2500, L100.0100 ####[facility] [address] [place], [address] CBC W/Diff, Automatedon 11-09 20-2023 Absolute Lymph 1.13 X10 3/uL Normal 0.83-4.51 [facility] Comment on above: Performed By: #### L 501.5200, L500.2500, L100.0100 ####[facility] [address] [place], [address] Absolute Neut 6.1 X10 3/uL Normal 2.0-7.7 [facility] Comment on above: Performed By: #### L 501.5200, L500.2500, L100.0100 ####[facility] [address] [place], [address] Basophils/100 WBC (Bld) 0.4 % Normal 0-1 [facility] Comment on above: Performed By: #### L 501.5200, L500.2500, L100.0100 ####[facility] [address] [place], [address] Eosinophils/100 WBC (Bld) 2.6 % Normal 0-5 [facility] Comment on above: Performed By: #### L 501.5200, L500.2500, L100.0100 ####[facility] [address] [place], [address] Erythrocyte distribution width (RBC) [Ratio] 14.1 % Normal 11.6-14.6 [facility] Comment on above: Performed By: #### L 501.5200, L500.2500, L100.0100 ####[facility] [address] [place], [address] Hematocrit (Bld) [Volume fraction] 38.0 % Low 40-54 [facility] Comment on above: Performed By: #### L 501.5200, L500.2500, L100.0100 ####[facility] [address] [place], [address] Hemoglobin (Bld) [Mass/Vol] 11.8 g/dL Low 13.0-16. 5 [facility] Comment on above: Performed By: #### L 501.5200, L500.2500, L100.0100 ####[facility] [address] [place], [address] IG% 0.200 Normal 0.0-0.9 [facility] Comment on above: Result Comment: IG% - Immature Granulocytes (promyelocytes, myelocytes andmetamyelocytes) > 1% indicates that a LEFT SHIFT is Present. Performed By: #### L 501.5200, L500.2500, L100.0100 ####[facility] [address] [place], [address] Lymphocytes/100 WBC (Bld) 13.3 % Low 19-41 [facility] Comment on above: Performed By: #### L 501.5200, L500.2500, L100.0100 ####[facility] [address] [place], [address] MCH (RBC) [Entitic mass] 26.3 pg Low 27.0-32.0 [facility] Comment on above: Performed By: #### L 501.5200, L500.2500, L100.0100 ####[facility] [address] [place], [address] MCHC (RBC) [Mass/Vol] 31.1 g/dL Low 32-36 [facility] Comment on above: Performed By: #### L 501.5200, L500.2500, L100.0100 ####[facility] [address] [place], [address] MCV (RBC) [Entitic vol] 84.8 fL Normal 80-94 [facility] Comment on above: Performed By: #### L 501.5200, L500.2500, L100.0100 ####[facility] [address] [place], [address] Monocytes/100 WBC (Bld) 11.5 % High 0-10 [facility] Comment on above: Performed By: #### L 501.5200, L500.2500, L100.0100 ####[facility] [address] [place], [address] Neutrophils/100 WBC (Bld) 72.0 % High 47-70 [facility] Comment on above: Performed By: #### L 501.5200, L500.2500, L100.0100 ####[facility] [address] [place], [address] Nucleated RBC (Bld) [#/Vol] 0 10*3/uL Normal 0-5 [facility] Comment on above: Performed By: #### L 501.5200, L500.2500, L100.0100 ####[facility] [address] [place], [address] Platelet mean volume (Bld) [Entitic vol] 11.4 fL Normal 6.2-12.0 [facility] Comment on above: Performed By: #### L 501.5200, L500.2500, L100.0100 ####[facility] [address] [place], [address] Platelets (Bld) [#/Vol] 282 10*3/uL Normal 150-450 [facility] Comment on above: Performed By: #### L 501.5200, L500.2500, L100.0100 ####[facility] [address] [place], [address] RBC (Bld) [#/Vol] 4.48 10*6/uL Low 4.6-6.2 [facility] Comment on above: Performed By: #### L 501.5200, L500.2500, L100.0100 ####[facility] [address] [place], [address] RDW SD 43.7 fl Normal 35.1-43.9 [facility] Comment on above: Performed By: #### L 501.5200, L500.2500, L100.0100 ####[facility] [address] [place], [address] WBC (Bld) [#/Vol] 8.5 10*3/uL Normal 4.4-11.0 [facility] Comment on above: Performed By: #### L 501.5200, L500.2500, L100.0100 ####[facility] [address] [place], [address] [facility] [place] 07-31-2024 [facility] Telephone ([facility]) FAISAL ALARCON ([id number]) 1945 M Date Time Provider Department 07/31/24 JULIANNA HOOD [facility] During your visit today, we recorded the following information about you: Julianna Hood APRN.PCU RN 07/31/2024 5:32 PM Signed Lab work done [...] Date Reviewed: 07/29/2024 Reviewed by: Julianna Hood APRN.PCU RN - Fully Assessed Prescriptions as of 08/01/2024 [...] - Blood-Glucose Meter,Continuous (FREESTYLE MARIELLE 3 READER) [facility] Use to check blood sugar at least [...] mouth every 12 hours. 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 - finasteride (PROSCAR) 5 mg tablet - aspirin 81 mg chewable tablet Take 81 mg by mouth once daily. - insulin needles, DISPOSABLE, (1ST TIER UNIFINE PENTIPS) 31 gauge x 5/16" ndle 1 Each once daily. DX: E11.9 Insulin: Yes - Insulin Syringe-Needle U-100 1/2 mL 29 x 1/2" syrg 1 Each once daily. USE ONE [...] [I48.0] 02/15/2021 (more content not included)... Normal [facility] Magnesiumon 07-31-2024 Magnesium [Mass/Vol] 2.9 mg/dL High 1.6-2.6 [facility] Comment on above: Performed By: #### L 501.5200, L500.2500, L100.0100 ####[facility] [address] [place], [address] Pulmonary Visit Reporton Pulmonary Visit Report Normal [facility] CNOVon 07-29-2024 CNOV Office Visit ([facility]AMPWS ) FAISAL ALARCON ([id number]) 1945 M Date Time Provider Department 07/29/24 11:20 AM [facility] During your visit today, we recorded the following information about you: Pulse Respiration Blood pressure Weight 70/minute 24/minute 104/50 135.2 kg Julianna Hood APRN.PCU RN 07/31/2024 12:43 PM Addendum This is a [...] pressure. No nausea. No constipation. Admitted to [facility] w/ pulmonary edeam, hypoxia Echo showed EF [...] day. Blood-Glucose Meter,Continuous (FREESTYLE MARIELLE 3 READER) [facility] [place] Use to check blood sugar at least [...] CD (CARDI (more content not included)... Normal [facility] CBC W/Diff, Automatedon 07-18 Absolute Lymph 1.39 X10 3/uL Normal 0.83-4.51 [facility] Comment on above: Performed By: #### L 506.0250, L503.6550, L503.0105, L100.0100, L503.6030 ####[facility] [address] [place], [address] Absolute Neut 7.2 X10 3/uL Normal 2.0-7.7 [facility] Comment on above: Performed By: #### L 506.0250, L503.6550, L503.0105, L100.0100, L503.6030 ####[facility] [address] [place], [address] Basophils/100 WBC (Bld) 0.4 % Normal 0-1 [facility] Comment on above: Performed By: #### L 506.0250, L503.6550, L503.0105, L100.0100, L503.6030 ####[facility] [address] [place], [address] Eosinophils/100 WBC (Bld) 3.0 % Normal 0-5 [facility] Comment on above: Performed By: #### L 506.0250, L503.6550, L503.0105, L100.0100, L503.6030 ####[facility] [address] [place], [address] Erythrocyte distribution width (RBC) [Ratio] 14.1 % Normal 11.6-14.6 [facility] Comment on above: Performed By: #### L 506.0250, L503.6550, L503.0105, L100.0100, L503.6030 ####[facility] [address] [place], [address] Hematocrit (Bld) [Volume fraction] 38.9 % Low 40-54 [facility] Comment on above: Performed By: #### L 506.0250, L503.6550, L503.0105, L100.0100, L503.6030 ####[facility] [address] [place], [address] Hemoglobin (Bld) [Mass/Vol] 12.1 g/dL Low 13.0-16. 5 [facility] Comment on above: Performed By: #### L 506.0250, L503.6550, L503.0105, L100.0100, L503.6030 ####[facility] [address] [place], [address] IG% 0.400 Normal 0.0-0.9 [facility] Comment on above: Result Comment: IG% - Immature Granulocytes (promyelocytes, myelocytes andmetamyelocytes) > 1% indicates that a LEFT SHIFT is Present. Performed By: #### L 506.0250, L503.6550, L503.0105, L100.0100, L503.6030 ####[facility] [address] [place], [address] Lymphocytes/100 WBC (Bld) 13.8 % Low 19-41 [facility] Comment on above: Performed By: #### L 506.0250, L503.6550, L503.0105, L100.0100, L503.6030 ####[facility] [address] [place], [address] MCH (RBC) [Entitic mass] 26.1 pg Low 27.0-32.0 [facility] Comment on above: Performed By: #### L 506.0250, L503.6550, L503.0105, L100.0100, L503.6030 ####[facility] [address] [place], [address] MCHC (RBC) [Mass/Vol] 31.1 g/dL Low 32-36 [facility] Comment on above: Performed By: #### L 506.0250, L503.6550, L503.0105, L100.0100, L503.6030 ####[facility] [address] [place], [address] MCV (RBC) [Entitic vol] 84.0 fL Normal 80-94 [facility] Comment on above: Performed By: #### L 506.0250, L503.6550, L503.0105, L100.0100, L503.6030 ####[facility] [address] [place], [address] Monocytes/100 WBC (Bld) 10.6 % High 0-10 [facility] Comment on above: Performed By: #### L 506.0250, L503.6550, L503.0105, L100.0100, L503.6030 ####[facility] [address] [place], [address] Neutrophils/100 WBC (Bld) 71.8 % High 47-70 [facility] Comment on above: Performed By: #### L 506.0250, L503.6550, L503.0105, L100.0100, L503.6030 ####[facility] [address] [place], [address] Nucleated RBC (Bld) [#/Vol] 0 10*3/uL Normal 0-5 [facility] Comment on above: Performed By: #### L 506.0250, L503.6550, L503.0105, L100.0100, L503.6030 ####[facility] [address] [place], [address] Platelet mean volume (Bld) [Entitic vol] 10.6 fL Normal 6.2-12.0 [facility] Comment on above: Performed By: #### L 506.0250, L503.6550, L503.0105, L100.0100, L503.6030 ####[facility] [address] [place], [address] Platelets (Bld) [#/Vol] 321 10*3/uL Normal 150-450 [facility] Comment on above: Performed By: #### L 506.0250, L503.6550, L503.0105, L100.0100, L503.6030 ####[facility] [address] [place], [address] RBC (Bld) [#/Vol] 4.63 10*6/uL Normal 4.6-6.2 [facility] Comment on above: Performed By: #### L 506.0250, L503.6550, L503.0105, L100.0100, L503.6030 ####[facility] [address] [place], [address] RDW SD 42.7 fl Normal 35.1-43.9 [facility] Comment on above: Performed By: #### L 506.0250, L503.6550, L503.0105, L100.0100, L503.6030 ####[facility] [address] [place], [address] WBC (Bld) [#/Vol] 10.0 10*3/uL Normal 4.4-11.0 [facility] Comment on above: Performed By: #### L 506.0250, L503.6550, L503.0105, L100.0100, L503.6030 ####[facility] [address] [place], [address] Ferritinon 07-28-2024 Ferritin [Mass/Vol] 27 ng/mL Normal 26-388 [facility] Comment on above: Order Comment: N Performed By: #### L 506.0250, L503.6550, L503.0105, L100.0100, L503.6030 ####[facility] [address] [place], [address] Folates, (Folic Acid)on 07-18 FOLATES 14.80 ng/mL Normal 3.1-55.4 [facility] Comment on above: Order Comment: N Performed By: #### L 506.0250, L503.6550, L503.0105, L100.0100, L503.6030 ####[facility] [address] [place], [address] Iron+Iron Binding Capacityon 07-28-2024 Iron [Mass/Vol] 50 ug/dL Low 65-175 [facility] Comment on above: Order Comment: N Performed By: #### L 506.0250, L503.6550, L503.0105, L100.0100, L503.6030 ####[facility] [address] [place], [address] IRON SATURATION 12.6 Low 15.0-55.0 [facility] Comment on above: Order Comment: N Performed By: #### L 506.0250, L503.6550, L503.0105, L100.0100, L503.6030 ####[facility] [address] [place], [address] TIBC 397 ug/dL Normal 250-450 [facility] Comment on above: Order Comment: N Performed By: #### L 506.0250, L503.6550, L503.0105, L100.0100, L503.6030 ####[facility] [address] [place], [address] Vitamin B12on 07-28-2024 Cobalamin (Vitamin B12) [Mass/Vol] 310 pg/mL Normal 211-911 [facility] Comment on above: Performed By: #### L 506.0250, L503.6550, L503.0105, L100.0100, L503.6030 ####[facility] [address] [place], [address] Basic Metabolic Profile (BMP )on 07-25-2024 BUN/CRE 34.6 RATIO High 10-20 [facility] Comment on above: Performed By: #### L 100.0100, L500.2500 ####[facility] [address] [place], [address] CA,Total 8.9 mg/dL Normal 8.5-10.1 [facility] Comment on above: Performed By: #### L 100.0100, L500.2500 ####[facility] [address] [place], [address] Chloride [Moles/Vol] 101 mmol/L Normal 98-107 [facility] Comment on above: Performed By: #### L 100.0100, L500.2500 ####[facility] [address] [place], [address] CO2 [Moles/Vol] 30.0 mmol/L Normal 21.0-32.0 [facility] Comment on above: Performed By: #### L 100.0100, L500.2500 ####[facility] [address] [place], [address] Creatinine [Mass/Vol] 1.07 mg/dL Normal 0.70-1.30 [facility] Comment on above: Result Comment: The validity of the calculated GFR GFRAA in patients over70 years has not been determined. Clinical correlation isessential. Performed By: #### L 100.0100, L500.2500 ####[facility] [address] [place], [address] ECRCL 79.30 ml/min Normal [facility] Comment on above: Performed By: #### L 100.0100, L500.2500 ####[facility] [address] [place], [address] EST GFR - AA 86 mL/min Normal >60 [facility] Comment on above: Result Comment: Afri can [place] GFR Calc Performed By: #### L 100.0100, L500.2500 ####[facility] [address] [place], [address] GAP 8 Normal 5-15 [facility] Comment on above: Performed By: #### L 100.0100, L500.2500 ####[facility] [address] [place], [address] GFR/1.73 sq M.predicted among non-blacks MDRD (S/P/Bld) [Vol rate/Area] 71 mL/min/{1.73_m2} Normal >60 [facility] Comment on above: Result Comment: Non- GFR Calc Performed By: #### L 100.0100, L500.2500 ####[facility] [address] [place], [address] Glucose [Mass/Vol] 114 mg/dL High 74-106 [facility] Comment on above: Result Comment: Fast ing Glucose result from 100 to 125 mg/dLsuggests IMPAIRED HOMEOSTASIS per A.D.A. criteria. Performed By: #### L 100.0100, L500.2500 ####[facility] [address] [place], [address] Potassium [Moles/Vol] 3.2 mmol/L Low 3.5-5.1 [facility] Comment on above: Performed By: #### L 100.0100, L500.2500 ####[facility] [address] [place], [address] Sodium [Moles/Vol] 138 mmol/L Normal 136-145 [facility] Comment on above: Performed By: #### L 100.0100, L500.2500 ####[facility] [address] [place], [address] Urea nitrogen [Mass/Vol] 37 mg/dL High 7-18 [facility] Comment on above: Performed By: #### L 100.0100, L500.2500 ####[facility] [address] [place], [address] Bedside Glucoseon 07-25-2023 FINGERSTICK GLU 277 mg/dL High 74-106 [facility] Comment on above: Result Comment: URSULA CHAMBERS OF PATIENT CARE PER NURSING PROTOCOL Performed By: #### L 501.080 ####[facility] [address] [place], [address] CBC W/Diff, Automatedon 11-0 Absolute Lymph 2.18 X10 3/uL Normal 0.83-4.51 [facility] Comment on above: Performed By: #### L 100.0100, L500.2500 ####[facility] [address] [place], [address] Absolute Neut 9.3 X10 3/uL High 2.0-7.7 [facility] Comment on above: Performed By: #### L 100.0100, L500.2500 ####[facility] [address] [place], [address] Basophils/100 WBC (Bld) 0.4 % Normal 0-1 [facility] Comment on above: Performed By: #### L 100.0100, L500.2500 ####[facility] [address] [place], [address] Eosinophils/100 WBC (Bld) 2.4 % Normal 0-5 [facility] Comment on above: Performed By: #### L 100.0100, L500.2500 ####[facility] [address] [place], [address] Erythrocyte distribution width (RBC) [Ratio] 14.1 % Normal 11.6-14.6 [facility] Comment on above: Performed By: #### L 100.0100, L500.2500 ####[facility] [address] [place], [address] Hematocrit (Bld) [Volume fraction] 38.3 % Low 40-54 [facility] Comment on above: Performed By: #### L 100.0100, L500.2500 ####[facility] [address] [place], [address] Hemoglobin (Bld) [Mass/Vol] 12.3 g/dL Low 13.0-16. 5 [facility] Comment on above: Performed By: #### L 100.0100, L500.2500 ####[facility] [address] [place], [address] IG% 0.800 Normal 0.0-0.9 [facility] Comment on above: Result Comment: IG% - Immature Granulocytes (promyelocytes, myelocytes andmetamyelocytes) > 1% indicates that a LEFT SHIFT is Present. Performed By: #### L 100.0100, L500.2500 ####[facility] [address] [place], [address] Lymphocytes/100 WBC (Bld) 16.4 % Low 19-41 [facility] Comment on above: Performed By: #### L 100.0100, L500.2500 ####[facility] [address] [place], [address] MCH (RBC) [Entitic mass] 26.6 pg Low 27.0-32.0 [facility] Comment on above: Performed By: #### L 100.0100, L500.2500 ####[facility] [address] [place], [address] MCHC (RBC) [Mass/Vol] 32.1 g/dL Normal 32-36 [facility] Comment on above: Performed By: #### L 100.0100, L500.2500 ####[facility] [address] [place], [address] MCV (RBC) [Entitic vol] 82.9 fL Normal 80-94 [facility] Comment on above: Performed By: #### L 100.0100, L500.2500 ####[facility] [address] [place], [address] Monocytes/100 WBC (Bld) 10.5 % High 0-10 [facility] Comment on above: Performed By: #### L 100.0100, L500.2500 ####[facility] [address] [place], [address] Neutrophils/100 WBC (Bld) 69.5 % Normal 47-70 [facility] Comment on above: Performed By: #### L 100.0100, L500.2500 ####[facility] [address] [place], [address] Nucleated RBC (Bld) [#/Vol] 0 10*3/uL Normal 0-5 [facility] Comment on above: Performed By: #### L 100.0100, L500.2500 ####[facility] [address] [place], [address] Platelet mean volume (Bld) [Entitic vol] 10.9 fL Normal 6.2-12.0 [facility] Comment on above: Performed By: #### L 100.0100, L500.2500 ####[facility] [address] [place], [address] Platelets (Bld) [#/Vol] 360 10*3/uL Normal 150-450 [facility] Comment on above: Performed By: #### L 100.0100, L500.2500 ####[facility] [address] [place], [address] RBC (Bld) [#/Vol] 4.62 10*6/uL Normal 4.6-6.2 [facility] Comment on above: Performed By: #### L 100.0100, L500.2500 ####[facility] [address] [place], [address] RDW SD 42.3 fl Normal 35.1-43.9 [facility] Comment on above: Performed By: #### L 100.0100, L500.2500 ####[facility] [address] [place], [address] WBC (Bld) [#/Vol] 13.3 10*3/uL High 4.4-11.0 [facility] Comment on above: Performed By: #### L 100.0100, L500.2500 ####[facility] [address] [place], [address] Basic Metabolic Profile (BMP )on 07-24-2024 BUN/CRE 41.7 RATIO High 10-20 [facility] Comment on above: Performed By: #### L 500.2500, L100.0100 ####[facility] [address] [place], [address] CA,Total 8.7 mg/dL Normal 8.5-10.1 [facility] Comment on above: Performed By: #### L 500.2500, L100.0100 ####[facility] [address] [place], [address] Chloride [Moles/Vol] 104 mmol/L Normal 98-107 [facility] Comment on above: Performed By: #### L 500.2500, L100.0100 ####[facility] [address] [place], [address] CO2 [Moles/Vol] 28.0 mmol/L Normal 21.0-32.0 [facility] Comment on above: Performed By: #### L 500.2500, L100.0100 ####[facility] [address] [place], [address] Creatinine [Mass/Vol] 0.91 mg/dL Normal 0.70-1.30 [facility] Comment on above: Result Comment: The validity of the calculated GFR GFRAA in patients over70 years has not been determined. Clinical correlation isessential. Performed By: #### L 500.2500, L100.0100 ####[facility] [address] [place], [address] ECRCL 93.17 ml/min Normal [facility] Comment on above: Performed By: #### L 500.2500, L100.0100 ####[facility] [address] [place], [address] EST GFR - AA 103 mL/min Normal >60 [facility] Comment on above: Result Comment: Afri can [place] GFR Calc Performed By: #### L 500.2500, L100.0100 ####[facility] [address] [place], [address] GAP 7 Normal 5-15 [facility] Comment on above: Performed By: #### L 500.2500, L100.0100 ####[facility] [address] [place], [address] GFR/1.73 sq M.predicted among non-blacks MDRD (S/P/Bld) [Vol rate/Area] 85 mL/min/{1.73_m2} Normal >60 [facility] Comment on above: Result Comment: Non- GFR Calc Performed By: #### L 500.2500, L100.0100 ####[facility] [address] [place], [address] Glucose [Mass/Vol] 221 mg/dL High 74-106 [facility] Comment on above: Result Comment: Gluc ose result greater than or equal to 200 mg/dLsuggests DIABETES MELLITUS per A.D.A. criteria. Performed By: #### L 500.2500, L100.0100 ####[facility] [address] [place], [address] Potassium [Moles/Vol] 4.0 mmol/L Normal 3.5-5.1 [facility] Comment on above: Performed By: #### L 500.2500, L100.0100 ####[facility] [address] [place], [address] Sodium [Moles/Vol] 139 mmol/L Normal 136-145 [facility] Comment on above: Performed By: #### L 500.2500, L100.0100 ####[facility] [address] [place], [address] Urea nitrogen [Mass/Vol] 38 mg/dL High 7-18 [facility] Comment on above: Performed By: #### L 500.2500, L100.0100 ####[facility] [address] [place], [address] Bedside Glucoseon 07-24-2024 FINGERSTICK GLU 108 mg/dL High 74-106 [facility] Comment on above: Result Comment: URSULA GEMENT OF PATIENT CARE PER NURSING PROTOCOL Performed By: #### L 501.080 ####[facility] [address] [place], [address] FINGERSTICK GLU 192 mg/dL High 74-106 [facility] Comment on above: Result Comment: URSULA GEMENT OF PATIENT CARE PER NURSING PROTOCOL Performed By: #### L 501.080 ####[facility] [address] [place], [address] FINGERSTICK GLU 227 mg/dL High 74-106 [facility] Comment on above: Result Comment: URSULA GEMENT OF PATIENT CARE PER NURSING PROTOCOL Performed By: #### L 501.080 ####[facility] [address] [place], [address] FINGERSTICK GLU 227 mg/dL High 74-106 [facility] Comment on above: Result Comment: URSULA CHAMBERS OF PATIENT CARE PER NURSING PROTOCOL Performed By: #### L 501.080 ####[facility] [address] [place], [address] CBC W/Diff, Automatedon 11-0 7-2024 Absolute Lymph 2.00 X10 3/uL Normal 0.83-4.51 [facility] Comment on above: Performed By: #### L 500.2500, L100.0100 ####[facility] [address] [place], [address] Absolute Neut 8.9 X10 3/uL High 2.0-7.7 [facility] Comment on above: Performed By: #### L 500.2500, L100.0100 ####[facility] [address] [place], [address] Basophils/100 WBC (Bld) 0.3 % Normal 0-1 [facility] Comment on above: Performed By: #### L 500.2500, L100.0100 ####[facility] [address] [place], [address] Eosinophils/100 WBC (Bld) 1.0 % Normal 0-5 [facility] Comment on above: Performed By: #### L 500.2500, L100.0100 ####[facility] [address] [place], [address] Erythrocyte distribution width (RBC) [Ratio] 14.1 % Normal 11.6-14.6 [facility] Comment on above: Performed By: #### L 500.2500, L100.0100 ####[facility] [address] [place], [address] Hematocrit (Bld) [Volume fraction] 37.0 % Low 40-54 [facility] Comment on above: Performed By: #### L 500.2500, L100.0100 ####[facility] [address] [place], [address] Hemoglobin (Bld) [Mass/Vol] 11.5 g/dL Low 13.0-16. 5 [facility] Comment on above: Performed By: #### L 500.2500, L100.0100 ####[facility] [address] [place], [address] IG% 0.600 Normal 0.0-0.9 [facility] Comment on above: Result Comment: IG% - Immature Granulocytes (promyelocytes, myelocytes andmetamyelocytes) > 1% indicates that a LEFT SHIFT is Present. Performed By: #### L 500.2500, L100.0100 ####[facility] [address] [place], [address] Lymphocytes/100 WBC (Bld) 16.0 % Low 19-41 [facility] Comment on above: Performed By: #### L 500.2500, L100.0100 ####[facility] [address] [place], [address] MCH (RBC) [Entitic mass] 26.6 pg Low 27.0-32.0 [facility] Comment on above: Performed By: #### L 500.2500, L100.0100 ####[facility] [address] [place], [address] MCHC (RBC) [Mass/Vol] 31.1 g/dL Low 32-36 [facility] Comment on above: Performed By: #### L 500.2500, L100.0100 ####[facility] [address] [place], [address] MCV (RBC) [Entitic vol] 85.6 fL Normal 80-94 [facility] Comment on above: Performed By: #### L 500.2500, L100.0100 ####[facility] [address] [place], [address] Monocytes/100 WBC (Bld) 11.4 % High 0-10 [facility] Comment on above: Performed By: #### L 500.2500, L100.0100 ####[facility] [address] [place], [address] Neutrophils/100 WBC (Bld) 70.7 % High 47-70 [facility] Comment on above: Performed By: #### L 500.2500, L100.0100 ####[facility] [address] [place], [address] Nucleated RBC (Bld) [#/Vol] 0 10*3/uL Normal 0-5 [facility] Comment on above: Performed By: #### L 500.2500, L100.0100 ####[facility] [address] [place], [address] Platelet mean volume (Bld) [Entitic vol] 11.5 fL Normal 6.2-12.0 [facility] Comment on above: Performed By: #### L 500.2500, L100.0100 ####[facility] [address] [place], [address] Platelets (Bld) [#/Vol] 302 10*3/uL Normal 150-450 [facility] Comment on above: Performed By: #### L 500.2500, L100.0100 ####[facility] [address] [place], [address] RBC (Bld) [#/Vol] 4.32 10*6/uL Low 4.6-6.2 [facility] Comment on above: Performed By: #### L 500.2500, L100.0100 ####[facility] [address] [place], [address] RDW SD 43.9 fl Normal 35.1-43.9 [facility] Comment on above: Performed By: #### L 500.2500, L100.0100 ####[facility] [address] [place], [address] WBC (Bld) [#/Vol] 12.5 10*3/uL High 4.4-11.0 [facility] Comment on above: Performed By: #### L 500.2500, L100.0100 ####[facility] [address] [place], [address] 12 Lead EKGon 07-23-2024 12 Lead EKG Normal [facility] Basic Metabolic Profile (BMP )on 07-23-2024 BUN/CRE 28.7 RATIO High 10-20 [facility] Comment on above: Performed By: #### L 500.2500, L100.0100, L500.4100, L501.5200 ####[facility] [address] [place], [address] CA,Total 9.0 mg/dL Normal 8.5-10.1 [facility] Comment on above: Performed By: #### L 500.2500, L100.0100, L500.4100, L501.5200 ####[facility] [address] [place], [address] Chloride [Moles/Vol] 103 mmol/L Normal 98-107 [facility] Comment on above: Performed By: #### L 500.2500, L100.0100, L500.4100, L501.5200 ####[facility] [address] [place], [address] CO2 [Moles/Vol] 27.0 mmol/L Normal 21.0-32.0 [facility] Comment on above: Performed By: #### L 500.2500, L100.0100, L500.4100, L501.5200 ####[facility] [address] [place], [address] Creatinine [Mass/Vol] 1.08 mg/dL Normal 0.70-1.30 [facility] Comment on above: Result Comment: The validity of the calculated GFR GFRAA in patients over70 years has not been determined. Clinical correlation isessential. Performed By: #### L 500.2500, L100.0100, L500.4100, L501.5200 ####[facility] [address] [place], [address] ECRCL 78.41 ml/min Normal [facility] Comment on above: Performed By: #### L 500.2500, L100.0100, L500.4100, L501.5200 ####[facility] [address] [place], [address] EST GFR - AA 85 mL/min Normal >60 [facility] Comment on above: Result Comment: Afri can [place]i GFR Calc Performed By: #### L 500.2500, L100.0100, L500.4100, L501.5200 ####[facility] [address] [place], [address] GAP 7 Normal 5-15 [facility] Comment on above: Performed By: #### L 500.2500, L100.0100, L500.4100, L501.5200 ####[facility] [address] [place], [address] GFR/1.73 sq M.predicted among non-blacks MDRD (S/P/Bld) [Vol rate/Area] 70 mL/min/{1.73_m2} Normal >60 [facility] Comment on above: Result Comment: Non- GFR Calc Performed By: #### L 500.2500, L100.0100, L500.4100, L501.5200 ####[facility] [address] [place], [address] Glucose [Mass/Vol] 330 mg/dL High 74-106 [facility] Comment on above: Result Comment: Gluc ose result greater than or equal to 200 mg/dLsuggests DIABETES MELLITUS per A.D.A. criteria. Performed By: #### L 500.2500, L100.0100, L500.4100, L501.5200 ####[facility] [address] [place], [address] Potassium [Moles/Vol] 3.9 mmol/L Normal 3.5-5.1 [facility] Comment on above: Performed By: #### L 500.2500, L100.0100, L500.4100, L501.5200 ####[facility] [address] [place], [address] Sodium [Moles/Vol] 137 mmol/L Normal 136-145 [facility] Comment on above: Performed By: #### L 500.2500, L100.0100, L500.4100, L501.5200 ####[facility] [address] [place], [address] Urea nitrogen [Mass/Vol] 31 mg/dL High 7-18 [facility] Comment on above: Performed By: #### L 500.2500, L100.0100, L500.4100, L501.5200 ####[facility] [address] [place], [address] Bedside Glucoseon 07-23-2024 FINGERSTICK GLU 352 mg/dL High 74-106 [facility] Comment on above: Result Comment: URSULA GEMENT OF PATIENT CARE PER NURSING PROTOCOL Performed By: #### L 501.080 ####[facility] [address] [place], [address] FINGERSTICK GLU 409 mg/dL High 74-106 [facility] Comment on above: Result Comment: URSULA GEMENT OF PATIENT CARE PER NURSING PROTOCOL Performed By: #### L 501.080 ####[facility] [address] [place], [address] FINGERSTICK GLU 350 mg/dL High 74-106 [facility] Comment on above: Result Comment: URSULA GEMENT OF PATIENT CARE PER NURSING PROTOCOL Performed By: #### L 501.080 ####[facility] [address] [place], [address] FINGERSTICK GLU 301 mg/dL High 74-106 [facility] Comment on above: Result Comment: URSULA GEMENT OF PATIENT CARE PER NURSING PROTOCOL Performed By: #### L 501.080 ####[facility] [address] [place], [address] CBC W/Diff, Automatedon 11-0 6-2023 Absolute Lymph 0.66 X10 3/uL Low 0.83-4.51 [facility] Comment on above: Performed By: #### L 500.2500, L100.0100, L500.4100, L501.5200 ####[facility] [address] [place], [address] Absolute Neut 10.7 X10 3/uL High 2.0-7.7 [facility] Comment on above: Performed By: #### L 500.2500, L100.0100, L500.4100, L501.5200 ####[facility] [address] [place], [address] Basophils/100 WBC (Bld) 0.1 % Normal 0-1 [facility] Comment on above: Performed By: #### L 500.2500, L100.0100, L500.4100, L501.5200 ####[facility] [address] [place], [address] Eosinophils/100 WBC (Bld) 0.0 % Normal 0-5 [facility] Comment on above: Performed By: #### L 500.2500, L100.0100, L500.4100, L501.5200 ####[facility] [address] [place], [address] Erythrocyte distribution width (RBC) [Ratio] 14.0 % Normal 11.6-14.6 [facility] Comment on above: Performed By: #### L 500.2500, L100.0100, L500.4100, L501.5200 ####[facility] [address] [place], [address] Hematocrit (Bld) [Volume fraction] 37.3 % Low 40-54 [facility] Comment on above: Performed By: #### L 500.2500, L100.0100, L500.4100, L501.5200 ####[facility] [address] [place], [address] Hemoglobin (Bld) [Mass/Vol] 11.7 g/dL Low 13.0-16. 5 [facility] Comment on above: Performed By: #### L 500.2500, L100.0100, L500.4100, L501.5200 ####[facility] [address] [place], [address] IG% 0.500 Normal 0.0-0.9 [facility] Comment on above: Result Comment: IG% - Immature Granulocytes (promyelocytes, myelocytes andmetamyelocytes) > 1% indicates that a LEFT SHIFT is Present. Performed By: #### L 500.2500, L100.0100, L500.4100, L501.5200 ####[facility] [address] [place], [address] Lymphocytes/100 WBC (Bld) 5.6 % Low 19-41 [facility] Comment on above: Performed By: #### L 500.2500, L100.0100, L500.4100, L501.5200 ####[facility] [address] [place], [address] MCH (RBC) [Entitic mass] 26.4 pg Low 27.0-32.0 [facility] Comment on above: Performed By: #### L 500.2500, L100.0100, L500.4100, L501.5200 ####[facility] [address] [place], [address] MCHC (RBC) [Mass/Vol] 31.4 g/dL Low 32-36 [facility] Comment on above: Performed By: #### L 500.2500, L100.0100, L500.4100, L501.5200 ####[facility] [address] [place], [address] MCV (RBC) [Entitic vol] 84.0 fL Normal 80-94 [facility] Comment on above: Performed By: #### L 500.2500, L100.0100, L500.4100, L501.5200 ####[facility] [address] [place], [address] Monocytes/100 WBC (Bld) 3.5 % Normal 0-10 [facility] Comment on above: Performed By: #### L 500.2500, L100.0100, L500.4100, L501.5200 ####[facility] [address] [place], [address] Neutrophils/100 WBC (Bld) 90.3 % High 47-70 [facility] Comment on above: Performed By: #### L 500.2500, L100.0100, L500.4100, L501.5200 ####[facility] [address] [place], [address] Nucleated RBC (Bld) [#/Vol] 0 10*3/uL Normal 0-5 [facility] Comment on above: Performed By: #### L 500.2500, L100.0100, L500.4100, L501.5200 ####[facility] [address] [place], [address] Platelet mean volume (Bld) [Entitic vol] 10.6 fL Normal 6.2-12.0 [facility] Comment on above: Performed By: #### L 500.2500, L100.0100, L500.4100, L501.5200 ####[facility] [address] [place], [address] Platelets (Bld) [#/Vol] 339 10*3/uL Normal 150-450 [facility] Comment on above: Performed By: #### L 500.2500, L100.0100, L500.4100, L501.5200 ####[facility] [address] [place], [address] RBC (Bld) [#/Vol] 4.44 10*6/uL Low 4.6-6.2 [facility] [place] Comment on above: Performed By: #### L 500.2500, L100.0100, L500.4100, L501.5200 ####[facility] [address] [place], [address] RDW SD 43.2 fl Normal 35.1-43.9 [facility] Comment on above: Performed By: #### L 500.2500, L100.0100, L500.4100, L501.5200 ####[facility] [address] [place], [address] WBC (Bld) [#/Vol] 11.9 10*3/uL High 4.4-11.0 [facility] [place] Comment on above: Performed By: #### L 500.2500, L100.0100, L500.4100, L501.5200 ####[facility] [address] [place], [address] Lipid Profileon 07-23-2024 Cholesterol [Mass/Vol] 114 mg/dL Normal 200 [facility] Comment on above: Result Comment: <200 mg/dL Desirable 200-240 mg/dL Borderline >240 mg/dL High Risk Performed By: #### L 500.2500, L100.0100, L500.4100, L501.5200 ####[facility] [address] [place], [address] Cholesterol in HDL [Mass/Vol] 47 mg/dL Normal [facility] Comment on above: Result Comment: The drugs N-Acetylcysteine and Metamizole may falselydepress this assay. Reference Range HDL <40 mg/dL Low HDL Cholesterol HDL >or= 60 mg/dL High HDL Cholesterol Performed By: #### L 500.2500, L100.0100, L500.4100, L501.5200 ####[facility] [address] [place], [address] Cholesterol in LDL [Mass/Vol] 56 mg/dL Normal 0-130 [facility] Comment on above: Performed By: #### L 500.2500, L100.0100, L500.4100, L501.5200 ####[facility] [address] [place], [address] Cholesterol in VLDL [Mass/Vol] 11 mg/dL Normal 5-40 [facility] Comment on above: Performed By: #### L 500.2500, L100.0100, L500.4100, L501.5200 ####[facility] [address] [place], [address] Triglyceride [Mass/Vol] 57 mg/dL Normal [facility] Comment on above: Result Comment: The drugs N-Acetylcysteine and Metamizole may falselydepress this assay.Serum Triglycerides Reference Interval Normal <150 mg/dL Borderline high 150 - 199 mg/dL High 200 - 499 mg/dL Very High > or = 500 mg/dL Performed By: #### L 500.2500, L100.0100, L500.4100, L501.5200 ####[facility] [address] [place], [address] Magnesiumon 07-23-2024 Magnesium [Mass/Vol] 2.0 mg/dL Normal 1.6-2.6 [facility] Comment on above: Performed By: #### L 500.2500, L100.0100, L500.4100, L501.5200 ####[facility] [address] [place], [address] RESPIRATORY PANEL MOLECULARo n 07-23-2024 RP PANEL Normal [facility] Comment on above: Performed By: #### M 100.638 ####[facility] [address] [place], [address] 12 Lead EKGon 07-22-2024 12 Lead EKG Normal [facility] BNP,B-Type NATRIURETIC PEPTI Suyapa 07-22-2024 Natriuretic peptide B (Bld) [Mass/Vol] 108.4 pg/mL High 0-100 [facility] Comment on above: Performed By: #### L 503.6620 ####[facility] [address] [place], [address] Basic Metabolic Profile (BMP )on 07-22-2024 BUN/CRE 34.7 RATIO High 10-20 [facility] Comment on above: Order Comment: 'TROP ' Serial specimen #1, #2 or #3: 1 Performed By: #### L 501.4020, L500.2500, L100.0100 ####[facility] [address] [place], [address] CA,Total 9.2 mg/dL Normal 8.5-10.1 [facility] Comment on above: Order Comment: 'TROP ' Serial specimen #1, #2 or #3: 1 Performed By: #### L 501.4020, L500.2500, L100.0100 ####[facility] [address] [place], [address] Chloride [Moles/Vol] 107 mmol/L Normal 98-107 [facility] Comment on above: Order Comment: 'TROP ' Serial specimen #1, #2 or #3: 1 Performed By: #### L 501.4020, L500.2500, L100.0100 ####[facility] [address] [place], [address] CO2 [Moles/Vol] 29.0 mmol/L Normal 21.0-32.0 [facility] Comment on above: Order Comment: 'TROP ' Serial specimen #1, #2 or #3: 1 Performed By: #### L 501.4020, L500.2500, L100.0100 ####[facility] [address] [place], [address] Creatinine [Mass/Vol] 0.92 mg/dL Normal 0.70-1.30 [facility] Comment on above: Order Comment: 'TROP ' Serial specimen #1, #2 or #3: 1 Result Comment: The validity of the calculated GFR GFRAA in patients over70 years has not been determined. Clinical correlation isessential. Performed By: #### L 501.4020, L500.2500, L100.0100 ####[facility] [address] [place], [address] EST GFR - AA 102 mL/min Normal >60 [facility] Comment on above: Order Comment: 'TROP ' Serial specimen #1, #2 or #3: 1 Result Comment: Afri can [place]i GFR Calc Performed By: #### L 501.4020, L500.2500, L100.0100 ####[facility] [address] [place], [address] GAP 4 Low 5-15 [facility] Comment on above: Order Comment: 'TROP ' Serial specimen #1, #2 or #3: 1 Performed By: #### L 501.4020, L500.2500, L100.0100 ####[facility] [address] [place], [address] GFR/1.73 sq M.predicted among non-blacks MDRD (S/P/Bld) [Vol rate/Area] 84 mL/min/{1.73_m2} Normal >60 [facility] Comment on above: Order Comment: 'TROP ' Serial specimen #1, #2 or #3: 1 Result Comment: Non- GFR Calc Performed By: #### L 501.4020, L500.2500, L100.0100 ####[facility] [address] [place], [address] Glucose [Mass/Vol] 78 mg/dL Normal 74-106 [facility] Comment on above: Order Comment: 'TROP ' Serial specimen #1, #2 or #3: 1 Performed By: #### L 501.4020, L500.2500, L100.0100 ####[facility] [address] [place], [address] Potassium [Moles/Vol] 3.2 mmol/L Low 3.5-5.1 [facility] Comment on above: Order Comment: 'TROP ' Serial specimen #1, #2 or #3: 1 Performed By: #### L 501.4020, L500.2500, L100.0100 ####[facility] [address] [place], [address] Sodium [Moles/Vol] 139 mmol/L Normal 136-145 [facility] Comment on above: Order Comment: 'TROP ' Serial specimen #1, #2 or #3: 1 Performed By: #### L 501.4020, L500.2500, L100.0100 ####[facility] [address] [place], [address] Urea nitrogen [Mass/Vol] 32 mg/dL High 7-18 [facility] Comment on above: Order Comment: 'TROP ' Serial specimen #1, #2 or #3: 1 Performed By: #### L 501.4020, L500.2500, L100.0100 ####[facility] [address] [place], [address] Bedside Glucoseon 11-05-2024 FINGERSTICK GLU 370 mg/dL High 74-106 [facility] Comment on above: Result Comment: URSULA GEMENT OF PATIENT CARE PER NURSING PROTOCOL Performed By: #### L 501.080 ####[facility] [address] [place], [address] FINGERSTICK GLU 206 mg/dL High 74-106 [facility] Comment on above: Result Comment: URSULA GEMENT OF PATIENT CARE PER NURSING PROTOCOL Performed By: #### L 501.080 ####[facility] [address] [place], [address] CBC W/Diff, Automatedon Absolute Lymph 0.98 X10 3/uL Normal 0.83-4.51 [facility] Comment on above: Performed By: #### L 501.4020, L500.2500, L100.0100 ####[facility] [address] [place], [address] Absolute Neut 13.9 X10 3/uL High 2.0-7.7 [facility] Comment on above: Performed By: #### L 501.4020, L500.2500, L100.0100 ####[facility] [address] [place], [address] Basophils/100 WBC (Bld) 0.2 % Normal 0-1 [facility] Comment on above: Performed By: #### L 501.4020, L500.2500, L100.0100 ####[facility] [address] [place], [address] Eosinophils/100 WBC (Bld) 0.9 % Normal 0-5 [facility] Comment on above: Performed By: #### L 501.4020, L500.2500, L100.0100 ####[facility] [address] [place], [address] Erythrocyte distribution width (RBC) [Ratio] 14.1 % Normal 11.6-14.6 [facility] Comment on above: Performed By: #### L 501.4020, L500.2500, L100.0100 ####[facility] [address] [place], [address] Hematocrit (Bld) [Volume fraction] 40.3 % Normal 40-54 [facility] Comment on above: Performed By: #### L 501.4020, L500.2500, L100.0100 ####[facility] [address] [place], [address] Hemoglobin (Bld) [Mass/Vol] 12.6 g/dL Low 13.0-16. 5 [facility] Comment on above: Performed By: #### L 501.4020, L500.2500, L100.0100 ####[facility] [address] [place], [address] IG% 0.500 Normal 0.0-0.9 [facility] Comment on above: Result Comment: IG% - Immature Granulocytes (promyelocytes, myelocytes andmetamyelocytes) > 1% indicates that a LEFT SHIFT is Present. Performed By: #### L 501.4020, L500.2500, L100.0100 ####[facility] [address] [place], [address] Lymphocytes/100 WBC (Bld) 6.0 % Low 19-41 [facility] Comment on above: Performed By: #### L 501.4020, L500.2500, L100.0100 ####[facility] [address] [place], [address] MCH (RBC) [Entitic mass] 26.6 pg Low 27.0-32.0 [facility] Comment on above: Performed By: #### L 501.4020, L500.2500, L100.0100 ####[facility] [address] [place], [address] MCHC (RBC) [Mass/Vol] 31.3 g/dL Low 32-36 [facility] Comment on above: Performed By: #### L 501.4020, L500.2500, L100.0100 ####[facility] [address] [place], [address] MCV (RBC) [Entitic vol] 85.2 fL Normal 80-94 [facility] Comment on above: Performed By: #### L 501.4020, L500.2500, L100.0100 ####[facility] [address] [place], [address] Monocytes/100 WBC (Bld) 7.7 % Normal 0-10 [facility] Comment on above: Performed By: #### L 501.4020, L500.2500, L100.0100 ####[facility] [address] [place], [address] Neutrophils/100 WBC (Bld) 84.7 % High 47-70 [facility] Comment on above: Performed By: #### L 501.4020, L500.2500, L100.0100 ####[facility] [address] [place], [address] Nucleated RBC (Bld) [#/Vol] 0 10*3/uL Normal 0-5 [facility] Comment on above: Performed By: #### L 501.4020, L500.2500, L100.0100 ####[facility] [address] [place], [address] Platelet mean volume (Bld) [Entitic vol] 10.9 fL Normal 6.2-12.0 [facility] Comment on above: Performed By: #### L 501.4020, L500.2500, L100.0100 ####[facility] [address] [place], [address] Platelets (Bld) [#/Vol] 350 10*3/uL Normal 150-450 [facility] Comment on above: Performed By: #### L 501.4020, L500.2500, L100.0100 ####[facility] [address] [place], [address] RBC (Bld) [#/Vol] 4.73 10*6/uL Normal 4.6-6.2 [facility] [place] Comment on above: Performed By: #### L 501.4020, L500.2500, L100.0100 ####[facility] [address] [place], [address] RDW SD 43.6 fl Normal 35.1-43.9 [facility] Comment on above: Performed By: #### L 501.4020, L500.2500, L100.0100 ####[facility] [address] [place], [address] WBC (Bld) [#/Vol] 16.4 10*3/uL High 4.4-11.0 [facility] Comment on above: Performed By: #### L 501.4020, L500.2500, L100.0100 ####[facility] [id number] [place], [address] Chest 1 View (Portable)on Chest 1 View (Portable) Normal [facility] Echo Complete W/ Contraston 07-22-2024 Echo Complete W/ Contrast Normal [facility] Emergency Department Summary on 07-22-2024 Emergency Department Summary Normal [facility] H AND P Exam - Hospitaliston 07-22-2024 H&P Exam - Hospitalist Normal [facility] L501.4020on 07-22-2024 TROPONIN-I HS 14 pg/mL Normal 3.0-78.0 [facility] Comment on above: Order Comment: 'TROP ' Serial specimen #1, #2 or #3: 1 Result Comment: Hannah irwin Note: New Test Units and Gender Specific Reference Ranges. For more information see Policy Stat Procedure Orient High Sensitivity Troponin (TNIH) and attachments. Performed By: #### L 501.4020, L500.2500, L100.0100 ####[facility] [address] [place], [address] M100.678on 07-22-2024 M100.678 Pending SARS-CoV-2 (COVID 19) Negative INFLUENZA A Negative INFLUENZA B Negative RSV PCR Negative Normal [facility] Comment on above: Performed By: #### M 100.678 ####[facility] [address] [place], [address] Urinalysis, Completeon 07-22 BACTERIA RARE Normal None Seen [facility] Comment on above: Order Comment: CLEAN CATCH Performed By: #### L 400.0001 ####[facility] [address] [place], [address] EPI,SQUAMOUS 0-5 SEEN Normal 0-5 [facility] Comment on above: Order Comment: CLEAN CATCH Performed By: #### L 400.0001 ####[facility] [address] [place], [address] RBC 0-5 SEEN Normal 0-5 [facility] Comment on above: Order Comment: CLEAN CATCH Performed By: #### L 400.0001 ####[facility] [address] [place], [address] WBC 0-5 SEEN Normal 0-5 [facility] Comment on above: Order Comment: CLEAN CATCH Performed By: #### L 400.0001 ####[facility] [address] [place], [address] Mucus Ql (Urine sed) 0 SEEN Normal [facility] Comment on above: Order Comment: CLEAN CATCH Performed By: #### L 400.0001 ####[facility] [address] [place], [address] 12 Lead EKGon 07-11-2024 12 Lead EKG Normal [facility] Bedside Glucoseon 07-11-2024 FINGERSTICK GLU 185 mg/dL High 74-106 [facility] Comment on above: Result Comment: URSULA GEMENT OF PATIENT CARE PER NURSING PROTOCOL Performed By: #### L 501.080 ####[facility] [address] [place], [address] FINGERSTICK GLU 272 mg/dL High 74-106 [facility] Comment on above: Result Comment: URSULA GEMENT OF PATIENT CARE PER NURSING PROTOCOL Performed By: #### L 501.080 ####[facility] [address] [place], [address] CBC W/Diff, Automatedon 06-18 Absolute Lymph 1.67 X10 3/uL Normal 0.83-4.51 [facility] Comment on above: Performed By: #### L 501.9520, L501.5200, L100.0100, L500.4050, L501.9985, L500.4100, L501.2300 ####[facility] [address] [place], [address] Absolute Neut 7.7 X10 3/uL Normal 2.0-7.7 [facility] Comment on above: Performed By: #### L 501.9520, L501.5200, L100.0100, L500.4050, L501.9985, L500.4100, L501.2300 ####[facility] [address] [place], [address] Basophils/100 WBC (Bld) 0.3 % Normal 0-1 [facility] Comment on above: Performed By: #### L 501.9520, L501.5200, L100.0100, L500.4050, L501.9985, L500.4100, L501.2300 ####[facility] [address] [place], [address] Eosinophils/100 WBC (Bld) 2.9 % Normal 0-5 [facility] Comment on above: Performed By: #### L 501.9520, L501.5200, L100.0100, L500.4050, L501.9985, L500.4100, L501.2300 ####[facility] [address] [place], [address] Erythrocyte distribution width (RBC) [Ratio] 13.7 % Normal 11.6-14.6 [facility] Comment on above: Performed By: #### L 501.9520, L501.5200, L100.0100, L500.4050, L501.9985, L500.4100, L501.2300 ####[facility] [address] [place], [address] Hematocrit (Bld) [Volume fraction] 34.7 % Low 40-54 [facility] Comment on above: Performed By: #### L 501.9520, L501.5200, L100.0100, L500.4050, L501.9985, L500.4100, L501.2300 ####[facility] [address] [place], [address] Hemoglobin (Bld) [Mass/Vol] 11.2 g/dL Low 13.0-16. 5 [facility] Comment on above: Performed By: #### L 501.9520, L501.5200, L100.0100, L500.4050, L501.9985, L500.4100, L501.2300 ####[facility] [address] [place], [address] IG% 0.500 Normal 0.0-0.9 [facility] Comment on above: Result Comment: IG% - Immature Granulocytes (promyelocytes, myelocytes andmetamyelocytes) > 1% indicates that a LEFT SHIFT is Present. Performed By: #### L 501.9520, L501.5200, L100.0100, L500.4050, L501.9985, L500.4100, L501.2300 ####[facility] [address] [place], [address] Lymphocytes/100 WBC (Bld) 15.3 % Low 19-41 [facility] Comment on above: Performed By: #### L 501.9520, L501.5200, L100.0100, L500.4050, L501.9985, L500.4100, L501.2300 ####[facility] [address] [place], [address] MCH (RBC) [Entitic mass] 27.2 pg Normal 27.0-32.0 [facility] Comment on above: Performed By: #### L 501.9520, L501.5200, L100.0100, L500.4050, L501.9985, L500.4100, L501.2300 ####[facility] [address] [place], [address] MCHC (RBC) [Mass/Vol] 32.3 g/dL Normal 32-36 [facility] Comment on above: Performed By: #### L 501.9520, L501.5200, L100.0100, L500.4050, L501.9985, L500.4100, L501.2300 ####[facility] [address] [place], [address] MCV (RBC) [Entitic vol] 84.2 fL Normal 80-94 [facility] Comment on above: Performed By: #### L 501.9520, L501.5200, L100.0100, L500.4050, L501.9985, L500.4100, L501.2300 ####[facility] [address] [place], [address] Monocytes/100 WBC (Bld) 11.0 % High 0-10 [facility] Comment on above: Performed By: #### L 501.9520, L501.5200, L100.0100, L500.4050, L501.9985, L500.4100, L501.2300 ####[facility] [address] [place], [address] Neutrophils/100 WBC (Bld) 70.0 % Normal 47-70 [facility] Comment on above: Performed By: #### L 501.9520, L501.5200, L100.0100, L500.4050, L501.9985, L500.4100, L501.2300 ####[facility] [address] [place], [address] Nucleated RBC (Bld) [#/Vol] 0 10*3/uL Normal 0-5 [facility] Comment on above: Performed By: #### L 501.9520, L501.5200, L100.0100, L500.4050, L501.9985, L500.4100, L501.2300 ####[facility] [address] [place], [address] Platelet mean volume (Bld) [Entitic vol] 10.7 fL Normal 6.2-12.0 [facility] Comment on above: Performed By: #### L 501.9520, L501.5200, L100.0100, L500.4050, L501.9985, L500.4100, L501.2300 ####[facility] [address] [place], [address] Platelets (Bld) [#/Vol] 239 10*3/uL Normal 150-450 [facility] Comment on above: Performed By: #### L 501.9520, L501.5200, L100.0100, L500.4050, L501.9985, L500.4100, L501.2300 ####[facility] [address] [place], [address] RBC (Bld) [#/Vol] 4.12 10*6/uL Low 4.6-6.2 [facility] Comment on above: Performed By: #### L 501.9520, L501.5200, L100.0100, L500.4050, L501.9985, L500.4100, L501.2300 ####[facility] [address] [place], [address] RDW SD 41.8 fl Normal 35.1-43.9 [facility] Comment on above: Performed By: #### L 501.9520, L501.5200, L100.0100, L500.4050, L501.9985, L500.4100, L501.2300 ####[facility] [address] [place], [address] WBC (Bld) [#/Vol] 11.0 10*3/uL Normal 4.4-11.0 [facility] Comment on above: Performed By: #### L 501.9520, L501.5200, L100.0100, L500.4050, L501.9985, L500.4100, L501.2300 ####[facility] [address] [place], [address] Comprehensive Metabolic Prof ilon 07-11-2024 Albumin [Mass/Vol] 3.0 g/dL Low 3.2-5.0 [facility] Comment on above: Performed By: #### L 501.9520, L501.5200, L100.0100, L500.4050, L501.9985, L500.4100, L501.2300 ####[facility] [address] [place], [address] Albumin/Globulin [Mass ratio] 0.8 {ratio} Low 0.9-2.4 [facility] Comment on above: Performed By: #### L 501.9520, L501.5200, L100.0100, L500.4050, L501.9985, L500.4100, L501.2300 ####[facility] [address] [place], [address] ALK P 69 U/L Normal 45-117 [facility] Comment on above: Performed By: #### L 501.9520, L501.5200, L100.0100, L500.4050, L501.9985, L500.4100, L501.2300 ####[facility] [address] [place], [place], [id number] ALT [Catalytic activity/Vol] 18 U/L Normal 16-61 [facility] Comment on above: Performed By: #### L 501.9520, L501.5200, L100.0100, L500.4050, L501.9985, L500.4100, L501.2300 ####[facility] [address] [place], [place], [id number] AST [Catalytic activity/Vol] 14 U/L Low 15-37 [facility] Comment on above: Performed By: #### L 501.9520, L501.5200, L100.0100, L500.4050, L501.9985, L500.4100, L501.2300 ####[facility] [address] [place], [address] Bilirubin [Mass/Vol] 0.40 mg/dL Normal 0.20-1.00 [facility] Comment on above: Result Comment: For patients on eltrombopag therapy, use of Dimension Orient TBIL is not recommended. Performed By: #### L 501.9520, L501.5200, L100.0100, L500.4050, L501.9985, L500.4100, L501.2300 ####[facility] [address] [place], [address] BUN/CRE 22.0 RATIO High 10-20 [facility] Comment on above: Performed By: #### L 501.9520, L501.5200, L100.0100, L500.4050, L501.9985, L500.4100, L501.2300 ####[facility] [address] [place], [address] CA,Total 8.7 mg/dL Normal 8.5-10.1 [facility] Comment on above: Performed By: #### L 501.9520, L501.5200, L100.0100, L500.4050, L501.9985, L500.4100, L501.2300 ####[facility] [address] [place], [address] Chloride [Moles/Vol] 101 mmol/L Normal 98-107 [facility] Comment on above: Performed By: #### L 501.9520, L501.5200, L100.0100, L500.4050, L501.9985, L500.4100, L501.2300 ####[facility] [address] [place], [address] CO2 [Moles/Vol] 26.0 mmol/L Normal 21.0-32.0 [facility] Comment on above: Performed By: #### L 501.9520, L501.5200, L100.0100, L500.4050, L501.9985, L500.4100, L501.2300 ####[facility] [address] [place], [address] Creatinine [Mass/Vol] 1.00 mg/dL Normal 0.70-1.30 [facility] Comment on above: Result Comment: The validity of the calculated GFR GFRAA in patients over70 years has not been determined. Clinical correlation isessential. Performed By: #### L 501.9520, L501.5200, L100.0100, L500.4050, L501.9985, L500.4100, L501.2300 ####[facility] [address] [place], [address] ECRCL 82.35 ml/min Normal [facility] Comment on above: Performed By: #### L 501.9520, L501.5200, L100.0100, L500.4050, L501.9985, L500.4100, L501.2300 ####[facility] [address] [place], [address] EST GFR - AA 92 mL/min Normal >60 [facility] Comment on above: Result Comment: Afri can [place]i GFR Calc Performed By: #### L 501.9520, L501.5200, L100.0100, L500.4050, L501.9985, L500.4100, L501.2300 ####[facility] [address] [place], [place], [id number] GAP 4 Low 5-15 [facility] Comment on above: Performed By: #### L 501.9520, L501.5200, L100.0100, L500.4050, L501.9985, L500.4100, L501.2300 ####[facility] [address] [place], [place], [address] GFR/1.73 sq M.predicted among non-blacks MDRD (S/P/Bld) [Vol rate/Area] 76 mL/min/{1.73_m2} Normal >60 [facility] Comment on above: Result Comment: Non- GFR Calc Performed By: #### L 501.9520, L501.5200, L100.0100, L500.4050, L501.9985, L500.4100, L501.2300 ####[facility] [address] [place], [place], [id number] Globulin (S) [Mass/Vol] 3.8 g/dL Normal 2.2-4.2 [facility] Comment on above: Performed By: #### L 501.9520, L501.5200, L100.0100, L500.4050, L501.9985, L500.4100, L501.2300 ####[facility] [address] [place], [address] Glucose [Mass/Vol] 185 mg/dL High 74-106 [facility] Comment on above: Result Comment: Fast ing Glucose result greater than or equal to 126 mg/dLsuggests DIABETES MELLITUS per A.D.A. criteria. Performed By: #### L 501.9520, L501.5200, L100.0100, L500.4050, L501.9985, L500.4100, L501.2300 ####[facility] [address] [place], [address] Potassium [Moles/Vol] 3.6 mmol/L Normal 3.5-5.1 [facility] Comment on above: Performed By: #### L 501.9520, L501.5200, L100.0100, L500.4050, L501.9985, L500.4100, L501.2300 ####[facility] [address] [place], [address] Sodium [Moles/Vol] 132 mmol/L Low 136-145 [facility] Comment on above: Performed By: #### L 501.9520, L501.5200, L100.0100, L500.4050, L501.9985, L500.4100, L501.2300 ####[facility] [address] [place], [address] T PROT 6.8 g/dL Normal 6.4-8.2 [facility] Comment on above: Performed By: #### L 501.9520, L501.5200, L100.0100, L500.4050, L501.9985, L500.4100, L501.2300 ####[facility] [address] [place], [place], [id number] Urea nitrogen [Mass/Vol] 22 mg/dL High 7-18 [facility] Comment on above: Performed By: #### L 501.9520, L501.5200, L100.0100, L500.4050, L501.9985, L500.4100, L501.2300 ####[facility] [address] [place], [place], [id number] Discharge Instructionon 06-18 Discharge Instruction Normal [facility] Hemoglobin A1con 07-11-2024 HbA1c (Bld) [Mass fraction] 7.0 % High 3.8-5.6 [facility] Comment on above: Result Comment: Norm al < 5.7 % Prediabetic 5.7 - 6.4 % Diabetic >or= 6.5 % Please note range changes. Performed By: #### L 501.9520, L501.5200, L100.0100, L500.4050, L501.9985, L500.4100, L501.2300 ####[facility] [address] [place], [place], [phone] Lipid Profileon 07-11-2024 Cholesterol [Mass/Vol] 97 mg/dL Normal 200 [facility] Comment on above: Result Comment: <200 mg/dL Desirable 200-240 mg/dL Borderline >240 mg/dL High Risk Performed By: #### L 501.9520, L501.5200, L100.0100, L500.4050, L501.9985, L500.4100, L501.2300 ####[facility] [address] [place], [place], [phone] Cholesterol in HDL [Mass/Vol] 41 mg/dL Normal [facility] Comment on above: Result Comment: The drugs N-Acetylcysteine and Metamizole may falselydepress this assay. Reference Range HDL <40 mg/dL Low HDL Cholesterol HDL >or= 60 mg/dL High HDL Cholesterol Performed By: #### L 501.9520, L501.5200, L100.0100, L500.4050, L501.9985, L500.4100, L501.2300 ####[facility] [address] [place], [address] Cholesterol in LDL [Mass/Vol] 34 mg/dL Normal 0-130 [facility] Comment on above: Performed By: #### L 501.9520, L501.5200, L100.0100, L500.4050, L501.9985, L500.4100, L501.2300 ####[facility] [address] [place], [address] Cholesterol in VLDL [Mass/Vol] 22 mg/dL Normal 5-40 [facility] Comment on above: Performed By: #### L 501.9520, L501.5200, L100.0100, L500.4050, L501.9985, L500.4100, L501.2300 ####[facility] [address] [place], [address] Triglyceride [Mass/Vol] 108 mg/dL Normal [facility] Comment on above: Result Comment: The drugs N-Acetylcysteine and Metamizole may falselydepress this assay.Serum Triglycerides Reference Interval Normal <150 mg/dL Borderline high 150 - 199 mg/dL High 200 - 499 mg/dL Very High > or = 500 mg/dL Performed By: #### L 501.9520, L501.5200, L100.0100, L500.4050, L501.9985, L500.4100, L501.2300 ####[facility] [address] [place], [address] Magnesiumon 07-11-2024 Magnesium [Mass/Vol] 2.1 mg/dL Normal 1.6-2.6 [facility] Comment on above: Performed By: #### L 501.9520, L501.5200, L100.0100, L500.4050, L501.9985, L500.4100, L501.2300 ####[facility] [address] [place], [address] Phosphoruson 07-11-2024 Phosphate [Mass/Vol] 2.7 mg/dL Normal 2.5-4.9 [facility] Comment on above: Performed By: #### L 501.9520, L501.5200, L100.0100, L500.4050, L501.9985, L500.4100, L501.2300 ####[facility] [address] [place], [place], [address] Stress Reporton 07-11-2024 Stress Report Normal [facility] Thyroid Stim Hormone (TSH)on 07-11-2024 TSH 1.450 uIU/mL Normal 0.358-3.740 [facility] Comment on above: Performed By: #### L 501.9520, L501.5200, L100.0100, L500.4050, L501.9985, L500.4100, L501.2300 ####[facility] [address] [place], [place], [address] 12 Lead EKGon 07-10-2024 12 Lead EKG Normal [facility] 12 Lead EKG Normal [facility] 12 Lead EKG Normal [facility] Abdomen/Pelvis without Conto n 07-10-2024 Abdomen/Pelvis without Cont Normal [facility] BNP,B-Type NATRIURETIC PEPTI Suyapa 07-10-2024 Natriuretic peptide B (Bld) [Mass/Vol] 54.9 pg/mL Normal 0-100 [facility] Comment on above: Performed By: #### L 503.6620 ####[facility] [address] [place], [place], [phone] Basic Metabolic Profile (BMP )on 07-10-2024 BUN/CRE 21.8 RATIO High - [facility] Comment on above: Order Comment: 1Y Performed By: #### L 500.2500, L100.0100, L501.5425 ####[facility] [address] [place], [address] CA,Total 9.4 mg/dL Normal 8.5-10.1 [facility] Comment on above: Order Comment: 1Y Performed By: #### L 500.2500, L100.0100, L501.5425 ####[facility] [address] [place], [address] Chloride [Moles/Vol] 103 mmol/L Normal 98-107 [facility] Comment on above: Order Comment: 1Y Performed By: #### L 500.2500, L100.0100, L501.5425 ####[facility] [address] [place], [address] CO2 [Moles/Vol] 29.0 mmol/L Normal 21.0-32.0 [facility] Comment on above: Order Comment: 1Y Performed By: #### L 500.2500, L100.0100, L501.5425 ####[facility] [address] [place], [address] Creatinine [Mass/Vol] 1.24 mg/dL Normal 0.70-1.30 [facility] Comment on above: Order Comment: 1Y Result Comment: The validity of the calculated GFR GFRAA in patients over70 years has not been determined. Clinical correlation isessential. Performed By: #### L 500.2500, L100.0100, L501.5425 ####[facility] [address] [place], [address] ECRCL 69.31 ml/min Normal [facility] Comment on above: Order Comment: 1Y Performed By: #### L 500.2500, L100.0100, L501.5425 ####[facility] [address] [place], [address] EST GFR - AA 72 mL/min Normal >60 [facility] Comment on above: Order Comment: 1Y Result Comment: Afri can [place] GFR Calc Performed By: #### L 500.2500, L100.0100, L501.5425 ####[facility] [address] [place], [address] GAP 5 Normal 5-15 [facility] Comment on above: Order Comment: 1Y Performed By: #### L 500.2500, L100.0100, L501.5425 ####[facility] [address] [place], [address] GFR/1.73 sq M.predicted among non-blacks MDRD (S/P/Bld) [Vol rate/Area] 60 mL/min/{1.73_m2} Normal >60 [facility] Comment on above: Order Comment: 1Y Result Comment: Non- GFR Calc Performed By: #### L 500.2500, L100.0100, L501.5425 ####[facility] [address] [place], [address] Glucose [Mass/Vol] 152 mg/dL High 74-106 [facility] Comment on above: Order Comment: 1Y Result Comment: Fast ing Glucose result greater than or equal to 126 mg/dLsuggests DIABETES MELLITUS per A.D.A. criteria. Performed By: #### L 500.2500, L100.0100, L501.5425 ####[facility] [address] [place], [address] Potassium [Moles/Vol] 3.8 mmol/L Normal 3.5-5.1 [facility] Comment on above: Order Comment: 1Y Performed By: #### L 500.2500, L100.0100, L501.5425 ####[facility] [address] [place], [address] Sodium [Moles/Vol] 137 mmol/L Normal 136-145 [facility] Comment on above: Order Comment: 1Y Performed By: #### L 500.2500, L100.0100, L501.5425 ####[facility] [address] [place], [address] Urea nitrogen [Mass/Vol] 27 mg/dL High 7-18 [facility] Comment on above: Order Comment: 1Y Performed By: #### L 500.2500, L100.0100, L501.5425 ####[facility] [address] [place], [address] Bedside Glucoseon --2023 FINGERSTICK GLU 155 mg/dL High 74-106 [facility] Comment on above: Result Comment: URSULA GEMENT OF PATIENT CARE PER NURSING PROTOCOL Performed By: #### L 501.080 ####[facility] [address] [place], [address] FINGERSTICK GLU 173 mg/dL High 74-106 [facility] Comment on above: Result Comment: URSULA GEMENT OF PATIENT CARE PER NURSING PROTOCOL Performed By: #### L 501.080 ####[facility] [address] [place], [address] CBC W/Diff, Automatedon 10-2 Absolute Lymph 1.31 X10 3/uL Normal 0.83-4.51 [facility] Comment on above: Performed By: #### L 500.2500, L100.0100, L501.5425 ####[facility] [address] [place], [address] Absolute Neut 14.3 X10 3/uL High 2.0-7.7 [facility] Comment on above: Performed By: #### L 500.2500, L100.0100, L501.5425 ####[facility] [address] [place], [address] Basophils/100 WBC (Bld) 0.3 % Normal 0-1 [facility] Comment on above: Performed By: #### L 500.2500, L100.0100, L501.5425 ####[facility] [address] [place], [address] Eosinophils/100 WBC (Bld) 2.0 % Normal 0-5 [facility] Comment on above: Performed By: #### L 500.2500, L100.0100, L501.5425 ####[facility] [address] [place], [address] Erythrocyte distribution width (RBC) [Ratio] 13.7 % Normal 11.6-14.6 [facility] Comment on above: Performed By: #### L 500.2500, L100.0100, L501.5425 ####[facility] [address] [place], [address] Hematocrit (Bld) [Volume fraction] 39.2 % Low 40-54 [facility] Comment on above: Performed By: #### L 500.2500, L100.0100, L501.5425 ####[facility] [address] [place], [address] Hemoglobin (Bld) [Mass/Vol] 12.5 g/dL Low 13.0-16. 5 [facility] Comment on above: Performed By: #### L 500.2500, L100.0100, L501.5425 ####[facility] [address] [place], [address] IG% 0.400 Normal 0.0-0.9 [facility] Comment on above: Result Comment: IG% - Immature Granulocytes (promyelocytes, myelocytes andmetamyelocytes) > 1% indicates that a LEFT SHIFT is Present. Performed By: #### L 500.2500, L100.0100, L501.5425 ####[facility] [address] [place], [address] Lymphocytes/100 WBC (Bld) 7.5 % Low 19-41 [facility] Comment on above: Performed By: #### L 500.2500, L100.0100, [id number] ####[facility] [address] [place], [address] MCH (RBC) [Entitic mass] 27.5 pg Normal 27.0-32.0 [facility] Comment on above: Performed By: #### L 500.2500, L100.0100, [id number] ####[facility] [address] [place], [address] MCHC (RBC) [Mass/Vol] 31.9 g/dL Low 32-36 [facility] Comment on above: Performed By: #### L 500.2500, L100.0100, [id number] ####[facility] [address] [place], [address] MCV (RBC) [Entitic vol] 86.2 fL Normal 80-94 [facility] Comment on above: Performed By: #### L 500.2500, L100.0100, [id number] ####[facility] [address] [place], [address] Monocytes/100 WBC (Bld) 7.9 % Normal 0-10 [facility] Comment on above: Performed By: #### L 500.2500, L100.0100, [id number] ####[facility] [address] [place], [address] Neutrophils/100 WBC (Bld) 81.9 % High 47-70 [facility] Comment on above: Performed By: #### L 500.2500, L100.0100, [id number] ####[facility] [address] [place], [address] Nucleated RBC (Bld) [#/Vol] 0 10*3/uL Normal 0-5 [facility] Comment on above: Performed By: #### L 500.2500, L100.0100, [id number] ####[facility] [address] [place], [address] Platelet mean volume (Bld) [Entitic vol] 11.3 fL Normal 6.2-12.0 [facility] Comment on above: Performed By: #### L 500.2500, L100.0100, L501.5425 ####[facility] [address] [place], [address] Platelets (Bld) [#/Vol] 255 10*3/uL Normal 150-450 [facility] Comment on above: Performed By: #### L 500.2500, L100.0100, L501.5425 ####[facility] [address] [place], [address] RBC (Bld) [#/Vol] 4.55 10*6/uL Low 4.6-6.2 [facility] [place] Comment on above: Performed By: #### L 500.2500, L100.0100, L501.5425 ####[facility] [address] [place], [address] RDW SD 42.7 fl Normal 35.1-43.9 [facility] Comment on above: Performed By: #### L 500.2500, L100.0100, L501.5425 ####[facility] [address] [place], [address] WBC (Bld) [#/Vol] 17.5 10*3/uL High 4.4-11.0 [facility] [place] Comment on above: Performed By: #### L 500.2500, L100.0100, L501.5425 ####[facility] [address] [place], [address] Chest 1 View (Portable)on Chest 1 View (Portable) Normal [facility] D-Dimer Quantitative (DVT/PE )on 07-10-2024 D-DIMER QUANT 0.39 FEU/ug/m Normal 0.27-0.49 [facility] Comment on above: Result Comment: NORM AL D-Dimer level (<0.50) indicates no DVT or PE. Performed By: #### L 300.8000 ####[facility] [address] [place], [place], [address] Emergency Department Summary on 07-10-2024 Emergency Department Summary Normal [facility] H AND P Exam - Hospitaliston 07-10-2024 H&P Exam - Hospitalist Normal [facility] Hemoglobin A1con 07-10-2024 HbA1c (Bld) [Mass fraction] 7.0 % High 3.8-5.6 [facility] Comment on above: Result Comment: Norm al < 5.7 % Prediabetic 5.7 - 6.4 % Diabetic >or= 6.5 % Please note range changes. Performed By: #### L 501.9928 ####[facility] [address] [place], [address] L501.4020on 07-10-2024 TROPONIN-I HS 6 pg/mL Normal 3.0-78.0 [facility] Comment on above: Order Comment: Comme nts: SPECIMEN #3'TROP' Serial specimen #1, #2 or #3: 3 Result Comment: Plea se Note: New Test Units and Gender Specific Reference Ranges. For more information see Policy Stat Procedure Orient High Sensitivity Troponin (TNIH) and attachments. Performed By: #### L 501.4020 ####[facility] [address] [place], [place], [address] TROPONIN-I HS 8 pg/mL Normal 3.0-78.0 [facility] Comment on above: Result Comment: Plea se Note: New Test Units and Gender Specific Reference Ranges. For more information see Policy Stat Procedure Orient High Sensitivity Troponin (TNIH) and attachments. Performed By: #### L 501.4020 ####[facility] [address] [place], [address] L501.5425on 07-10-2024 TROPONIN-I HS 8 pg/mL Normal 3.0-78.0 [facility] Comment on above: Order Comment: 1Y Result Comment: Hannah irwin Note: New Test Units and Gender Specific Reference Ranges. For more information see Policy Stat Procedure Orient High Sensitivity Troponin (TNIH) and attachments. Performed By: #### L 500.2500, L100.0100, L501.5425 ####[facility] [address] [place], [address] Lipid Profileon 07-10-2024 Cholesterol [Mass/Vol] 93 mg/dL Normal 200 [facility] Comment on above: Result Comment: <200 mg/dL Desirable 200-240 mg/dL Borderline >240 mg/dL High Risk Performed By: #### L 500.4100 ####[facility] [address] [place], [address] Cholesterol in HDL [Mass/Vol] 38 mg/dL Low [facility] Comment on above: Result Comment: The drugs N-Acetylcysteine and Metamizole may falselydepress this assay. Reference Range HDL <40 mg/dL Low HDL Cholesterol HDL >or= 60 mg/dL High HDL Cholesterol Performed By: #### L 500.4100 ####[facility] [address] [place], [address] Cholesterol in LDL [Mass/Vol] 40 mg/dL Normal 0-130 [facility] Comment on above: Performed By: #### L 500.4100 ####[facility] [address] [place], [address] Cholesterol in VLDL [Mass/Vol] 15 mg/dL Normal 5-40 [facility] Comment on above: Performed By: #### L 500.4100 ####[facility] [address] [place], [address] Triglyceride [Mass/Vol] 77 mg/dL Normal [facility] Comment on above: Result Comment: The drugs N-Acetylcysteine and Metamizole may falselydepress this assay.Serum Triglycerides Reference Interval Normal <150 mg/dL Borderline high 150 - 199 mg/dL High 200 - 499 mg/dL Very High > or = 500 mg/dL Performed By: #### L 500.4100 ####[facility] [address] [place], [address] Urinalysis, Completeon 07-10 BACTERIA 1+ /hpf Normal None Seen [facility] Comment on above: Order Comment: COLOR OF URINE MAY AFFECT DIPSTICK RESULTS.CLEAN CATCH Performed By: #### L 400.0001 ####[facility] [address] [place], [address] EPI,SQUAMOUS 5-10 SEEN Normal [address] [place] [address] Comment on above: Order Comment: COLOR OF URINE MAY AFFECT DIPSTICK RESULTS.CLEAN CATCH Performed By: #### L 400.0001 ####[facility] [address] [place], [address] Mucus Ql (Urine sed) 1+ /hpf Normal [facility] Comment on above: Order Comment: COLOR OF URINE MAY AFFECT DIPSTICK RESULTS.CLEAN CATCH Performed By: #### L 400.0001 ####[facility] [address] [place], [address] RBC > 100 SEEN Normal 0-5 [facility] Comment on above: Order Comment: COLOR OF URINE MAY AFFECT DIPSTICK RESULTS.CLEAN CATCH Performed By: #### L 400.0001 ####[facility] [address] [place], [address] WBC 50-100 SEEN Normal 0-[address] [place] [address] Comment on above: Order Comment: COLOR OF URINE MAY AFFECT DIPSTICK RESULTS.CLEAN CATCH Performed By: #### L 400.0001 ####[facility] [address] [place], [address] Urine Cultureon 07-10-2024 URC Mixed Gram Positive Organisms English Count 25,000-50,000 MIXC Mixed contaminants. Submit a new specimen if indicated. Normal [facility] Comment on above: Performed By: #### M 100.2200 ####[facility] [address] [place], [address] Basic Metabolic Profile (BMP )on 07-04-2024 BUN/CRE 16.7 RATIO Normal -20 [facility] Comment on above: Performed By: #### L 500.2500 ####[facility] [address] [place], [address] CA,Total 9.6 mg/dL Normal 8.5-10.1 [facility] Comment on above: Performed By: #### L 500.2500 ####[facility] [address] [place], [address] Chloride [Moles/Vol] 102 mmol/L Normal 98-107 [facility] Comment on above: Performed By: #### L 500.2500 ####[facility] [address] [place], [address] CO2 [Moles/Vol] 26.0 mmol/L Normal 21.0-32.0 [facility] Comment on above: Performed By: #### L 500.2500 ####[facility] [address] [place], [address] Creatinine [Mass/Vol] 1.14 mg/dL Normal 0.70-1.30 [facility] Comment on above: Result Comment: The validity of the calculated GFR GFRAA in patients over70 years has not been determined. Clinical correlation isessential. Performed By: #### L 500.2500 ####[facility] [address] [place], [address] EST GFR - AA 79 mL/min Normal >60 [facility] Comment on above: Result Comment: Afri can [place]i GFR Calc Performed By: #### L 500.2500 ####[facility] [address] [place], [address] GAP 5 Normal 5-15 [facility] Comment on above: Performed By: #### L 500.2500 ####[facility] [address] [place], [address] GFR/1.73 sq M.predicted among non-blacks MDRD (S/P/Bld) [Vol rate/Area] 66 mL/min/{1.73_m2} Normal >60 [facility] Comment on above: Result Comment: Non- GFR Calc Performed By: #### L 500.2500 ####[facility] [address] [place], [address] Glucose [Mass/Vol] 111 mg/dL High 74-106 [facility] Comment on above: Result Comment: Fast ing Glucose result from 100 to 125 mg/dLsuggests IMPAIRED HOMEOSTASIS per A.D.A. criteria. Performed By: #### L 500.2500 ####[facility] [address] [place], [address] Potassium [Moles/Vol] 4.0 mmol/L Normal 3.5-5.1 [facility] Comment on above: Performed By: #### L 500.2500 ####[facility] [address] [place], [address] Sodium [Moles/Vol] 134 mmol/L Low 136-145 [facility] Comment on above: Performed By: #### L 500.2500 ####[facility] [address] [place], [address] Urea nitrogen [Mass/Vol] 19 mg/dL High 7-18 [facility] Comment on above: Performed By: #### L 500.2500 ####[facility] [address] [place], [address] Cardiology Visit Reporton Cardiology Visit Report Normal [facility] Basic Metabolic Profile (BMP )on 06-24-2024 BUN/CRE 19.3 RATIO Normal 10-20 [facility] Comment on above: Performed By: #### L 500.2500, L100.0100 ####[facility] [address] [place], [address] CA,Total 9.2 mg/dL Normal 8.5-10.1 [facility] Comment on above: Performed By: #### L 500.2500, L100.0100 ####[facility] [address] [place], [address] Chloride [Moles/Vol] 102 mmol/L Normal 98-107 [facility] Comment on above: Performed By: #### L 500.2500, L100.0100 ####[facility] [address] [place], [address] CO2 [Moles/Vol] 25.0 mmol/L Normal 21.0-32.0 [facility] Comment on above: Performed By: #### L 500.2500, L100.0100 ####[facility] [address] [place], [address] Creatinine [Mass/Vol] 1.09 mg/dL Normal 0.70-1.30 [facility] Comment on above: Result Comment: The validity of the calculated GFR GFRAA in patients over70 years has not been determined. Clinical correlation isessential. Performed By: #### L 500.2500, L100.0100 ####[facility] [address] [place], [address] ECRCL 79.37 ml/min Normal [facility] Comment on above: Performed By: #### L 500.2500, L100.0100 ####[facility] [address] [place], [address] EST GFR - AA 84 mL/min Normal >60 [facility] Comment on above: Result Comment: Afri can [place]i GFR Calc Performed By: #### L 500.2500, L100.0100 ####[facility] [address] [place], [address] GAP 9 Normal 5-15 [facility] Comment on above: Performed By: #### L 500.2500, L100.0100 ####[facility] [address] [place], [address] GFR/1.73 sq M.predicted among non-blacks MDRD (S/P/Bld) [Vol rate/Area] 69 mL/min/{1.73_m2} Normal >60 [facility] Comment on above: Result Comment: Non- GFR Calc Performed By: #### L 500.2500, L100.0100 ####[facility] [address] [place], [address] Glucose [Mass/Vol] 56 mg/dL Low 74-106 [facility] Comment on above: Performed By: #### L 500.2500, L100.0100 ####[facility] [address] [place], [address] Potassium [Moles/Vol] 3.5 mmol/L Normal 3.5-5.1 [facility] Comment on above: Performed By: #### L 500.2500, L100.0100 ####[facility] [address] [place], [address] Sodium [Moles/Vol] 136 mmol/L Normal 136-145 [facility] Comment on above: Performed By: #### L 500.2500, L100.0100 ####[facility] [address] [place], [address] Urea nitrogen [Mass/Vol] 21 mg/dL High 7-18 [facility] Comment on above: Performed By: #### L 500.2500, L100.0100 ####[facility] [address] [place], [address] Bedside Glucoseon 06-24-2024 FINGERSTICK GLU 150 mg/dL High 74-106 [facility] Comment on above: Result Comment: URSULA GEMENT OF PATIENT CARE PER NURSING PROTOCOL Performed By: #### L 501.080 ####[facility] [address] [place], [address] FINGERSTICK GLU 84 mg/dL Normal 74-106 [facility] Comment on above: Result Comment: URSULA GEMENT OF PATIENT CARE PER NURSING PROTOCOL Performed By: #### L 501.080 ####[facility] [address] [place], [address] CBC W/Diff, Automatedon 10-0 Absolute Lymph 2.17 X10 3/uL Normal 0.83-4.51 [facility] Comment on above: Performed By: #### L 500.2500, L100.0100 ####[facility] [address] [place], [address] Absolute Neut 6.9 X10 3/uL Normal 2.0-7.7 [facility] Comment on above: Performed By: #### L 500.2500, L100.0100 ####[facility] [address] [place], [address] Basophils/100 WBC (Bld) 0.6 % Normal 0-1 [facility] Comment on above: Performed By: #### L 500.2500, L100.0100 ####[facility] [address] [place], [address] Eosinophils/100 WBC (Bld) 4.6 % Normal 0-5 [facility] Comment on above: Performed By: #### L 500.2500, L100.0100 ####[facility] [address] [place], [address] Erythrocyte distribution width (RBC) [Ratio] 13.7 % Normal 11.6-14.6 [facility] Comment on above: Performed By: #### L 500.2500, L100.0100 ####[facility] [address] [place], [address] Hematocrit (Bld) [Volume fraction] 38.7 % Low 40-54 [facility] Comment on above: Performed By: #### L 500.2500, L100.0100 ####[facility] [address] [place], [address] Hemoglobin (Bld) [Mass/Vol] 12.2 g/dL Low 13.0-16. 5 [facility] Comment on above: Performed By: #### L 500.2500, L100.0100 ####[facility] [address] [place], [address] IG% 0.600 Normal 0.0-0.9 [facility] Comment on above: Result Comment: IG% - Immature Granulocytes (promyelocytes, myelocytes andmetamyelocytes) > 1% indicates that a LEFT SHIFT is Present. Performed By: #### L 500.2500, L100.0100 ####[facility] [address] [place], [address] Lymphocytes/100 WBC (Bld) 19.5 % Normal 19-41 [facility] Comment on above: Performed By: #### L 500.2500, L100.0100 ####[facility] [address] [place], [address] MCH (RBC) [Entitic mass] 26.9 pg Low 27.0-32.0 [facility] Comment on above: Performed By: #### L 500.2500, L100.0100 ####[facility] [address] [place], [address] MCHC (RBC) [Mass/Vol] 31.5 g/dL Low 32-36 [facility] Comment on above: Performed By: #### L 500.2500, L100.0100 ####[facility] [address] [place], [address] MCV (RBC) [Entitic vol] 85.4 fL Normal 80-94 [facility] Comment on above: Performed By: #### L 500.2500, L100.0100 ####[facility] [address] [place], [address] Monocytes/100 WBC (Bld) 12.6 % High 0-10 [facility] Comment on above: Performed By: #### L 500.2500, L100.0100 ####[facility] [address] [place], [address] Neutrophils/100 WBC (Bld) 62.1 % Normal 47-70 [facility] Comment on above: Performed By: #### L 500.2500, L100.0100 ####[facility] [address] [place], [address] Nucleated RBC (Bld) [#/Vol] 0 10*3/uL Normal 0-5 [facility] Comment on above: Performed By: #### L 500.2500, L100.0100 ####[facility] [address] [place], [address] Platelet mean volume (Bld) [Entitic vol] 10.4 fL Normal 6.2-12.0 [facility] Comment on above: Performed By: #### L 500.2500, L100.0100 ####[facility] [address] [place], [address] Platelets (Bld) [#/Vol] 314 10*3/uL Normal 150-450 [facility] Comment on above: Performed By: #### L 500.2500, L100.0100 ####[facility] [address] [place], [address] RBC (Bld) [#/Vol] 4.53 10*6/uL Low 4.6-6.2 [facility] [place] Comment on above: Performed By: #### L 500.2500, L100.0100 ####[facility] [address] [place], [address] RDW SD 42.8 fl Normal 35.1-43.9 [facility] Comment on above: Performed By: #### L 500.2500, L100.0100 ####[facility] [address] [place], [address] WBC (Bld) [#/Vol] 11.1 10*3/uL High 4.4-11.0 [facility] Comment on above: Performed By: #### L 500.2500, L100.0100 ####[facility] [address] [place], [address] Emergency Department Summary on 06-24-2024 Emergency Department Summary Normal [facility] CNOVon 06-23-2024 CNOV Office Visit (SLEWST ) FAISAL ALARCON ([id number]) 1945 M Date Time Provider Department 06/23/24 2:30 PM ABRIL DUVAL During your visit today, we recorded the following information about you: Pulse Respiration Blood pressure Weight 82/minute 18/minute 155/77 136 kg Abril Duval APRN.CNP 06/23/2024 4:46 PM Signed [facility] New Patient Evaluation PATIENT NAME: Faisal Alarcon DATE OF SERVICE: June 22, 2024 CONSULTING PROVIDER: Vikas Travis [address] [place] [address] REASON FOR CONSULT: Vikas Travis sends the patient for an opinion [...] day. Blood-Glucose Meter,Continuous (FREESTYLE MARIELLE 3 READER) [facility] Use to check blood sugar at least four (4) times daily. Uses insulin Blood-Glucose Sensor (FREESTYLE MARIELLE 3 PLUS SENSOR) sayra Apply new sensor every fifteen (15) days to upper arm. colestipol (COLESTID) 1 gram tablet Take 1 tablet (more content not included)... Normal [facility] Ema 06-23-2024 CAESARN Telephone (FAMPWS) FAISAL ALARCON ([id number]) 1945 M Date Time Provider Department 06/23/24 MATHIEU VIRGEN During your visit today, we recorded the following information about you: Kennedi Frey LPN 06/23/2024 2:07 PM Signed ----- Message from Julianna Hood sent at 06/23/2024 1:51 PM EDT ----- Your vitamin D level is very low. Please consider ptfs-qvl-dzfzg vitamin D3-2000 units daily. Your white blood [...] to leave message or call back number. Badoo message sent to pt, asking them to call back for results. JOSE ARMANDO Corrales M Robin, RN 06/24/2024 4:24 PM Signed Daughter returned call and given provider's message below with verbalized understanding. Daughter agreeable. Scheduled lab appt in 1 mth. Allergies As of Date: 06/23/2024 Noted Allergy Reaction AMOXICILLIN 05/11/2005 Comments: generalized erythema Date Reviewed: 06/23/2024 Reviewed by: Abril Duval APRN.PCU RN - Fully Assessed Reason for Visit: Results [95] Prescriptions as of 06/24/2024 - ELIQUIS 5 mg tab(s) Take 1 tablet by mouth two times a day. - Blood-Glucose Meter,Continuous (FREESTYLE MARIELLE 3 READER) misc Use to check blood sugar at least [...] mouth every 12 hours. 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 - finasteride (PROSCAR) 5 mg tablet - aspirin 81 mg chewable tablet Take 81 mg by mouth once daily. - insulin needles, DISPOSABLE, (1ST TIER UNIFINE PENTIPS) 31 gauge x 5/16" ndle 1 Each once daily. DX: E11.9 Insulin: Yes - Insulin Syringe-Needle U-100 1/2 mL 29 x 1/2" syrg 1 Each once daily. USE ONE [...] [J18.9] 09 (more content not included)... Normal [facility] 25([place])D3 [facility] 2023 25-hydroxyvitamin D3 [Mass/Vol] 15.7 ng/mL Low 31.0-80.0 [facility] Comment on above: Order Comment: Speci men Type: BLOOD SPECIMENOrdering Facility: [facility] Address: [address] [place] [address] Result Comment: Clas sification of 25 [place] Vitamin D status: Deficiency/Insufficiency: < or = 30 ng/ml. Sufficiency/Optimal Levels: 31-80 ng/mL Toxicity: > 100 ng/mL. Test performed by chemiluminescent immunoassay. Performed By: #### 1 989-3 ####[facility] LABCLIA [id number] [place] [address] [place] CBC W Auto Differential pane l (Bld)on 06-20-2024 Basophils (Bld) [#/Vol] 0.06 10*3/uL Normal <0.11 [facility] Comment on above: Order Comment: Speci men Type: BLOOD SPECIMENOrdering Facility: [facility] Address: [address] [place] [address] Performed By: #### 5 7021-8 ####[facility] LABCLIA [id number] [address] [place] Basophils/100 WBC (Bld) 0.5 % Normal [facility] Comment on above: Order Comment: Speci men Type: BLOOD SPECIMENOrdering Facility: [facility] Address: [address] [place] [address] Performed By: #### 5 7021-8 ####[facility] LABCLIA [id number] [place] [address] [place] Differential cell count method Nom (Bld) Auto Normal [facility] Comment on above: Order Comment: Speci men Type: BLOOD SPECIMENOrdering Facility: [facility] Address: [address] [place] [address] Performed By: #### 5 7021-8 ####[facility] LABIA [id number] [place] [address] [place] Eosinophils (Bld) [#/Vol] 0.41 10*3/uL Normal <0.46 [facility] Comment on above: Order Comment: Speci men Type: BLOOD SPECIMENOrdering Facility: [facility] Address: [address] [place] [address] Performed By: #### 5 7021-8 ####[facility] LABCLIA [id number] [place] [address] [place] Eosinophils/100 WBC (Bld) 3.5 % Normal [facility] Comment on above: Order Comment: Speci men Type: BLOOD SPECIMENOrdering Facility: [facility] Address: [address] [place] [address] Performed By: #### 5 7021-8 ####[facility] LABCLIA [id number] [place] [address] [place] Erythrocyte distribution width (RBC) [Ratio] 13.7 % Normal 11.5-15.0 [facility] Comment on above: Order Comment: Speci men Type: BLOOD SPECIMENOrdering Facility: [facility] Address: [address] [place] [address] Performed By: #### 5 7021-8 ####[facility] LABCLIA [id number] [address] [place] Hematocrit (Bld) [Volume fraction] 38.9 % Low 39.0-51.0 [facility] Comment on above: Order Comment: Speci men Type: BLOOD SPECIMENOrdering Facility: [facility] Address: [address] [place] [address] Performed By: #### 5 7021-8 ####[facility] LABCLIA [id number] [place] [address] [place] Hemoglobin (Bld) [Mass/Vol] 12.4 g/dL Low 13.0-17. 0 [facility] Comment on above: Order Comment: Speci men Type: BLOOD SPECIMENOrdering Facility: [facility] Address: [address] [place] [address] Performed By: #### 5 7021-8 ####[facility] LABCLIA [id number] [place] [address] [place] Immature granulocytes (Bld) [#/Vol] 0.05 10*3/uL Normal <0.10 [facility] Comment on above: Order Comment: Speci men Type: BLOOD SPECIMENOrdering Facility: [facility] Address: [address] [place] [address] Performed By: #### 5 7021-8 ####[facility] LABCLIA [id number] [place] [address] [place] Immature granulocytes/100 WBC (Bld) 0.4 % Normal [facility] Comment on above: Order Comment: Speci men Type: BLOOD SPECIMENOrdering Facility: [facility] Address: [address] [place] [address] Performed By: #### 5 7021-8 ####[facility] LABIA [id number] [place] [address] [place] Lymphocytes (Bld) [#/Vol] 1.53 10*3/uL Normal 1.00-4.0 0 [facility] [place] Comment on above: Order Comment: Speci men Type: BLOOD SPECIMENOrdering Facility: [facility] Address: [address] [place] [address] Performed By: #### 5 7021-8 ####[facility] LABCLIA [id number] [place] [address] [place] Lymphocytes/100 WBC (Bld) 13.0 % Normal [facility] [place] Comment on above: Order Comment: Speci men Type: BLOOD SPECIMENOrdering Facility: [facility] Address: [address] [place] [address] Performed By: #### 5 7021-8 ####[facility] LABCLIA [id number] [place] [address] [place] MCH (RBC) [Entitic mass] 27.7 pg Normal 26.0-34.0 [facility] [place] Comment on above: Order Comment: Speci men Type: BLOOD SPECIMENOrdering Facility: [facility] Address: [address] [place] [address] Performed By: #### 5 7021-8 ####[facility] LABCLIA [id number] [place] [address] [place] MCHC (RBC) [Mass/Vol] 31.9 g/dL Normal 30.5-36.0 [facility] Comment on above: Order Comment: Speci men Type: BLOOD SPECIMENOrdering Facility: [facility] Address: [address] [place] [address] Performed By: #### 5 7021-8 ####[facility] LABCLIA [id number] [place] [address] [place] MCV (RBC) [Entitic vol] 86.8 fL Normal 80.0-100.0 C [facility] Comment on above: Order Comment: Speci men Type: BLOOD SPECIMENOrdering Facility: [facility] Address: [address] [place] [address] Performed By: #### 5 7021-8 ####[facility] LABCLIA [id number] [place] [address] [place] Monocytes (Bld) [#/Vol] 1.41 10*3/uL High <0.87 [facility] [place] Comment on above: Order Comment: Speci men Type: BLOOD SPECIMENOrdering Facility: [facility] Address: [address] [place] [address] Performed By: #### 5 7021-8 ####[facility] LABCLIA [id number] [place] [address] [place] Monocytes/100 WBC (Bld) 12.0 % Normal C [facility] Comment on above: Order Comment: Speci men Type: BLOOD SPECIMENOrdering Facility: [facility] Address: [address] [place] [address] Performed By: #### 5 7021-8 ####[facility] LABCLIA [id number] [place] [address] [place] Neutrophils (Bld) [#/Vol] 8.29 10*3/uL High 1.45-7.5 0 [facility] [place] Comment on above: Order Comment: Speci men Type: BLOOD SPECIMENOrdering Facility: [facility] Address: [address] [place] [address] Performed By: #### 5 7021-8 ####[facility] LABCLIA [id number] [place] [address] [place] Neutrophils/100 WBC (Bld) 70.6 % Normal [facility] [place] Comment on above: Order Comment: Speci men Type: BLOOD SPECIMENOrdering Facility: [facility] Address: [address] [place] [address] Performed By: #### 5 7021-8 ####[facility] LABCLIA [id number] [place] [address] [place] Nucleated RBC (Bld) [#/Vol] 10*3/uL Normal <0.01 [facility] [place] Comment on above: Order Comment: Speci men Type: BLOOD SPECIMENOrdering Facility: [facility] Address: [address] [place] [address] Performed By: #### 5 7021-8 ####[facility] LABCLIA [id number] [place] [address] [place] Nucleated RBC/100 WBC (Bld) [Ratio] 0.0 /100 WBC Normal [facility] [place] Comment on above: Order Comment: Speci men Type: BLOOD SPECIMENOrdering Facility: [facility] Address: [address] [place] [address] Performed By: #### 5 7021-8 ####[facility] LABCLIA [id number] [place] [address] [place] Platelet mean volume (Bld) [Entitic vol] 11.1 fL Normal 9.0-12.7 [facility] [place] Comment on above: Order Comment: Speci men Type: BLOOD SPECIMENOrdering Facility: [facility] Address: [address] [place] [address] Performed By: #### 5 7021-8 ####[facility] [id number] [place] [address] [place] Platelets (Bld) [#/Vol] 294 10*3/uL Normal 150-400 [facility] [place] Comment on above: Order Comment: Speci men Type: BLOOD SPECIMENOrdering Facility: [facility] Address: [address] [place] [address] Performed By: #### 5 7021-8 ####[facility] [id number] [place] [address] [place] RBC (Bld) [#/Vol] 4.48 10*6/uL Normal 4.20-6.00 [facility] Comment on above: Order Comment: Speci men Type: BLOOD SPECIMENOrdering Facility: [facility] Address: [address] [place] [address] Performed By: #### 5 7021-8 ####[facility] [id number] [place] [address] [place] WBC (Bld) [#/Vol] 11.75 10*3/uL High 3.70-11.00 [facility] Comment on above: Order Comment: Speci men Type: BLOOD SPECIMENOrdering Facility: [facility] Address: [address] [place] [address] Performed By: #### 5 7021-8 ####[facility] [id number] [place] [address] [place] CK SerPl-cCncon 06-20-2024 CK [Catalytic activity/Vol] 164 U/L Normal 51-298 [facility] [place] Comment on above: Order Comment: Speci men Type: BLOOD SPECIMENOrdering Facility: [facility] Address: [address] [place] [address] Performed By: #### 2 157-6, 3016-3 ####[facility] LABCLIA [id number] KAREN MORRISDESK [id number] [place] [id number] [facility] CNOVon 06-20-2024 CNOV Office Visit (FAMPWS ) FAISAL ALARCON ([id number]) 1945 Date Time Provider Department 06/20/24 3:40 PM [facility] During your visit today, we recorded the [...] Free style marielle script needs sent through [facility] He is wanting us to send [...] (1ST TIER UNIFINE PENTIPS) 31 gauge x 5/16" ndle 1 Each once daily. DX: E11.9 Insulin: Yes Insulin Syringe-Needle U-100 1/2 mL 29 x 1/2" syrg 1 Each once daily. USE ONE SYRINGE FOR EACH DOSE/1PER DAY, (E11.9, Z79.4) Diabetes mellitus type 2, insulin dependent. Lancets (ACCU-CHEK SOFTCLIX LANCETS) lancets Test blood sugar(s) 1 times daily. Dx: 250.00. Insulin: Yes COMPOUNDED PRESCRIPTION 1 Each twice daily. Accucheck compact test strips, dx-NIDDM flecainide (TAMBOCOR) 150 mg tablet Take 1 tablet by mouth every 12 hours. 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 [...] BX FOR (more content not included)... Normal [facility] TSH SerPl-aCncon 06-20-2024 TSH Qn 1.840 m[IU]/L Normal 0.270-4.200 [facility] [place] Comment on above: Order Comment: Speci men Type: BLOOD SPECIMENOrdering Facility: [facility] Address: [address] [place] [address] Performed By: #### 2 157-6, 3016-3 ####[facility] LABCLIA [id number] JEMIMAAdry AVENU[address]ES[address] [place]31JAEVCQURMJOANNA [place] [id number] [facility] CNPNon 06-18-2024 C[facility]N [facility] FAISAL ALARCON ([id number]) 1945 M Date Time Provider Department 06/18/24 MATHIEU VIRGEN [facility] During your visit today, we recorded the following information about you: Angelina Bliss RN 06/18/2024 4:31 PM Signed Patient's daughter Farida Beck calling and requesting to speak specifically with PCP nurse, Jaylene. This is in regard to patient's scooter and pt's insurance. Farida [phone]. Thank you. Jaylene Henley LPN 06/20/2024 11:24 AM Signed Patient has visit today. Clinical staff can follow up with daughter at visit. Jaylene Henley LPN 06/25/2024 3:34 PM Signed As of today order for scooter and last OV was faxed to [employer]. Allergies As of Date: 06/18/2024 Noted Allergy Reaction AMOXICILLIN 05/11/2005 Comments: generalized erythema Date Reviewed: 04/12/2024 Reviewed by: Izzy Vargas, NILDA - Fully Assessed Reason for Visit: Patient Question [5627] Prescriptions as of 06/25/2024 - ELIQUIS 5 mg tab(s) Take 1 tablet by mouth two times a day. - Blood-Glucose Meter,Continuous (FREESTYLE MARIELLE 3 READER) [facility] [place] Use to check blood sugar at least [...] times a day before meals. Getting through [facility] - dilTIAZem CD (CARDIZEM CD, CARTIA XT) [...] mouth every 12 hours. 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 - finasteride (PROSCAR) 5 mg tablet - aspirin 81 mg chewable tablet Take 81 mg by mouth once daily. - insulin needles, DISPOSABLE, (1ST TIER UNIFINE PENTIPS) 31 gauge x 5/16" ndle 1 Each once daily. DX: E11.9 Insulin: Yes - Insulin Syringe-Needle U-100 1/2 mL 29 x 1/2" syrg 1 Each once daily. USE ONE [...] Diagnosed: 06/06/20 (more content not included)... Normal [facility] 06-17-2024 [facility] Telephone ([facility]) FAISAL ALARCON ([id number]) 1945 M Date Time Provider Department 06/17/24 MATHIEU VIRGEN [facility] During your visit today, we recorded the following information about you: Kennedi Frey LPN 06/17/2024 10:15 AM Signed Received a call from Alison with [employer]. PH: [phone]. She reports receiving information on a scooter. Alison reports this has to go thru pt's [employer] and they will fax all information with details to [facility] for [facility] to be done. I called daughter Farida and she reports they are using [employer] fax:[phone] PH: [phone] Spoke with [employer]ir[employer] and after they received the fax they will go thru it and send forms to be filled out and once those have been returned they will send to [facility] for PA . Information fas been faxed. Kennedi Frey LPN Allergies As of Date: 06/17/2024 Noted Allergy Reaction AMOXICILLIN 05/11/2005 Comments: generalized erythema Date Reviewed: 04/12/2024 Reviewed by: Izzy Vargas, RN - Fully Assessed Prescriptions as of 06/17/2024 [...] mouth every 12 hours. 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 - finasteride (PROSCAR) 5 mg tablet - aspirin 81 mg chewable tablet Take 81 mg by mouth once daily. - insulin needles, DISPOSABLE, (1ST TIER UNIFINE PENTIPS) 31 gauge x 5/16" ndle 1 Each once daily. DX: E11.9 Insulin: Yes - Insulin Syringe-Needle U-100 1/2 mL 29 x 1/2" syrg 1 Each once daily. USE ONE [...] dehydration [E (more content not included)... Normal [facility] Comprehensive metabolic 2000 panelon 06-11-2024 Albumin [Mass/Vol] 3.9 g/dL Normal 3.9-4.9 [facility] Comment on above: Order Comment: Speci men Type: BLOOD SPECIMENOrdering Facility: [facility] Address: [address] [place] [address] Performed By: #### 2 4323-8 ####[facility] LABIA [id number] [place] [address] [place] ALP [Catalytic activity/Vol] 81 U/L Normal 38-113 [facility] [place] Comment on above: Order Comment: Speci men Type: BLOOD SPECIMENOrdering Facility: [facility] Address: [address] [place] [address] Performed By: #### 2 4323-8 ####[facility] LABIA [id number] [place] [address] [place] ALT [Catalytic activity/Vol] 23 U/L Normal 10-54 [facility] Comment on above: Order Comment: Speci men Type: BLOOD SPECIMENOrdering Facility: [facility] Address: [address] [place] [address] Performed By: #### 2 4323-8 ####[facility] LABCLIA [id number] [place] [address] [place] Anion gap [Moles/Vol] 15 mmol/L Normal 8-15 [facility] Comment on above: Order Comment: Speci men Type: BLOOD SPECIMENOrdering Facility: [facility] Address: [address] [place] [address] Performed By: #### 2 4323-8 ####[facility] LABCLIA [id number] [place] [address] [place] AST [Catalytic activity/Vol] 26 U/L Normal 14-40 [facility] [place] Comment on above: Order Comment: Speci men Type: BLOOD SPECIMENOrdering Facility: [facility] Address: [address] [place] [address] Performed By: #### 2 4323-8 ####[facility] LABCLIA [id number] [place] [address] [place] Bilirubin [Mass/Vol] mg/dL Low 0.2-1.3 [facility] Comment on above: Order Comment: Speci men Type: BLOOD SPECIMENOrdering Facility: [facility] Address: [address] [place] [address] Performed By: #### 2 4323-8 ####[facility] LABCLIA [id number] [place] [address] [place] Calcium [Mass/Vol] 9.8 mg/dL Normal 8.5-10.2 [facility] Comment on above: Order Comment: Speci men Type: BLOOD SPECIMENOrdering Facility: [facility] Address: [address] [place] [address] Performed By: #### 2 4323-8 ####[facility] LABCLIA [id number] [place] [address] [place] Chloride [Moles/Vol] 98 mmol/L Normal 98-107 [facility] Comment on above: Order Comment: Speci men Type: BLOOD SPECIMENOrdering Facility: [facility] Address: [address] [place] [address] Performed By: #### 2 4323-8 ####[facility] LABCLIA [id number] [place] [id number] [place] CO2 [Moles/Vol] 20 mmol/L Low 22-30 [facility] [place] Comment on above: Order Comment: Speci men Type: BLOOD SPECIMENOrdering Facility: [facility] Address: [address] [place] [address] Performed By: #### 2 4323-8 ####[facility] LABIA [id number] [place] [address] [place] Creatinine [Mass/Vol] 1.19 mg/dL Normal 0.73-1.22 [facility] Comment on above: Order Comment: Speci men Type: BLOOD SPECIMENOrdering Facility: [facility] Address: [address] [place] [address] Performed By: #### 2 4323-8 ####[facility] LABIA [id number] [place] [address] [place] Creatinine and Glomerular filtration rate.predicted panel (S/P/Bld) 62 mL/min/1.73m??? Normal >=60 [facility] Comment on above: Order Comment: Speci men Type: BLOOD SPECIMENOrdering Facility: [facility] Address: [address] [place] [address] Result Comment: Racquel mated Glomerular Filtration Rate [...] actual GFR. Performed By: #### 2 4323-8 ####[facility] LABCLIA [id number] [address] [address] [place] Glucose [Mass/Vol] 169 mg/dL High 74-99 [facility] Comment on above: Order Comment: Speci men Type: BLOOD SPECIMENOrdering Facility: [facility] Address: [address] [place] [address] Result Comment: The [place] Diabetes Association (ADA) provides guidance for cutoff [...] Standards of Medical Care in Diabetes 2016, [place] Diabetes Association. Diabetes Care. 2016.39(Suppl 1). Performed By: #### 2 4323-8 ####[facility] LABCLIA [id number] [place] [address] [place] Potassium [Moles/Vol] 4.8 mmol/L Normal 3.7-5.1 [facility] Comment on above: Order Comment: Speci men Type: BLOOD SPECIMENOrdering Facility: [facility] Address: [address] [place] [address] Performed By: #### 2 4323-8 ####[facility] LABCLIA [id number] [place] [id number] [place] Protein [Mass/Vol] 7.4 g/dL Normal 6.3-8.0 [facility] Comment on above: Order Comment: Speci men Type: BLOOD SPECIMENOrdering Facility: [facility] Address: [address] [place] [address] Performed By: #### 2 4323-8 ####[facility] LABCLIA [id number] [place] [address] [place] Sodium [Moles/Vol] 133 mmol/L Low 136-144 [facility] Comment on above: Order Comment: Kayyi men Type: BLOOD SPECIMENOrdering Facility: [facility] Address: [address] [place] [address] Performed By: #### 2 4323-8 ####[facility] LABIA [id number] [place] [address] [place] Urea nitrogen [Mass/Vol] 28 mg/dL High 9-24 [facility] Comment on above: Order Comment: Kayyi men Type: BLOOD SPECIMENOrdering Facility: [facility] Address: [address] [place] [address] Performed By: #### 2 4323-8 ####[facility] [id number] [place] [address] [place] HbA1c (Bld)on 06-11-2024 Average glucose Estimated from glycated hemoglobin (Bld) [Mass/Vol] 166 mg/dL Normal [facility] Comment on above: Order Comment: Kayyi men Type: BLOOD SPECIMENOrdering Facility: [facility] Address: [address] [place] [address] Result Comment: eAG: (Estimated average glucose) is a calculated value from HgbA1c and is billing customer service representative of the average blood glucose level in the last 2-3 month period. Performed By: #### 5 5454-3 ####[facility] [id number] [place] [address] [place] HbA1c (Bld) [Mass fraction] 7.4 % High 4.3-5.6 [facility] Comment on above: Order Comment: Salvatore de la rosa Type: BLOOD SPECIMENOrdering Facility: [facility] Address: [address] [place] [address] Result Comment: [place] Diabetes Association guidelines indicate that patients with HgbA1c in the range 5.7-6.4% are at increased risk for development of diabetes, and intervention by lifestyle modification may be beneficial. HgbA1c greater or equal to 6.5% is considered diagnostic of diabetes. Performed By: #### 5 5454-3 ####[facility] LABCLIA [id number] KAREN [facility] I[address]CLHMNFORT [place] [address] [place] 12 Lead EKGon 06-08-2024 12 Lead EKG Normal [facility] Basic Metabolic Profile (BMP )on 06-08-2024 BUN/CRE 21.8 RATIO High 10-20 [facility] Comment on above: Order Comment: 1Y Performed By: #### L 501.5425, L100.0100, L500.2500 ####[facility] [address] [place], [address] CA,Total 9.6 mg/dL Normal 8.5-10.1 [facility] Comment on above: Order Comment: 1Y Performed By: #### L 501.5425, L100.0100, L500.2500 ####[facility] [address] [place], [address] Chloride [Moles/Vol] 99 mmol/L Normal 98-107 [facility] Comment on above: Order Comment: 1Y Performed By: #### L 501.5425, L100.0100, L500.2500 ####[facility] [address] [place], [address] CO2 [Moles/Vol] 30.0 mmol/L Normal 21.0-32.0 [facility] Comment on above: Order Comment: 1Y Performed By: #### L 501.5425, L100.0100, L500.2500 ####[facility] [address] [place], [address] Creatinine [Mass/Vol] 1.24 mg/dL Normal 0.70-1.30 [facility] Comment on above: Order Comment: 1Y Result Comment: The validity of the calculated GFR GFRAA in patients over70 years has not been determined. Clinical correlation isessential. Performed By: #### L 501.5425, L100.0100, L500.2500 ####[facility] [address] [place], [address] ECRCL 68.78 ml/min Normal [facility] Comment on above: Order Comment: 1Y Performed By: #### L 501.5425, L100.0100, L500.2500 ####[facility] [address] [place], [address] EST GFR - AA 72 mL/min Normal >60 [facility] Comment on above: Order Comment: 1Y Result Comment: Afri can [place] GFR Calc Performed By: #### L 501.5425, L100.0100, L500.2500 ####[facility] [address] [place], [address] GAP 5 Normal 5-15 [facility] Comment on above: Order Comment: 1Y Performed By: #### L 501.5425, L100.0100, L500.2500 ####[facility] [address] [place], [address] GFR/1.73 sq M.predicted among non-blacks MDRD (S/P/Bld) [Vol rate/Area] 60 mL/min/{1.73_m2} Normal >60 [facility] Comment on above: Order Comment: 1Y Result Comment: Non- GFR Calc Performed By: #### L 501.5425, L100.0100, L500.2500 ####[facility] [address] [place], [address] Glucose [Mass/Vol] 128 mg/dL High 74-106 [facility] Comment on above: Order Comment: 1Y Result Comment: Fast ing Glucose result greater than or equal to 126 mg/dLsuggests DIABETES MELLITUS per A.D.A. criteria. Performed By: #### L 501.5425, L100.0100, L500.2500 ####[facility] [address] [place], [address] Potassium [Moles/Vol] 4.2 mmol/L Normal 3.5-5.1 [facility] Comment on above: Order Comment: 1Y Performed By: #### L 501.5425, L100.0100, L500.2500 ####[facility] [address] [place], [address] Sodium [Moles/Vol] 134 mmol/L Low 136-145 [facility] Comment on above: Order Comment: 1Y Performed By: #### L 501.5425, L100.0100, L500.2500 ####[facility] [address] [place], [address] Urea nitrogen [Mass/Vol] 27 mg/dL High 7-18 [facility] Comment on above: Order Comment: 1Y Performed By: #### L 501.5425, L100.0100, L500.2500 ####[facility] [address] [place], [address] CBC W/Diff, Automatedon 05-19 Absolute Lymph 1.75 X10 3/uL Normal 0.83-4.51 [facility] Comment on above: Performed By: #### L 501.5425, L100.0100, L500.2500 ####[facility] [address] [place], [address] Absolute Neut 7.3 X10 3/uL Normal 2.0-7.7 [facility] Comment on above: Performed By: #### L 501.5425, L100.0100, L500.2500 ####[facility] [address] [place], [address] Basophils/100 WBC (Bld) 0.4 % Normal 0-1 [facility] Comment on above: Performed By: #### L 501.5425, L100.0100, L500.2500 ####[facility] [address] [place], [address] Eosinophils/100 WBC (Bld) 4.5 % Normal 0-5 [facility] Comment on above: Performed By: #### L 501.5425, L100.0100, L500.2500 ####[facility] [address] [place], [address] Erythrocyte distribution width (RBC) [Ratio] 13.2 % Normal 11.6-14.6 [facility] Comment on above: Performed By: #### L 501.5425, L100.0100, L500.2500 ####[facility] [address] [place], [address] Hematocrit (Bld) [Volume fraction] 40.6 % Normal 40-54 [facility] Comment on above: Performed By: #### L 501.5425, L100.0100, L500.2500 ####[facility] [address] [place], [address] Hemoglobin (Bld) [Mass/Vol] 13.0 g/dL Normal 13.0-16. 5 [facility] Comment on above: Performed By: #### L 501.5425, L100.0100, L500.2500 ####[facility] [address] [place], [address] IG% 0.800 Normal 0.0-0.9 [facility] Comment on above: Result Comment: IG% - Immature Granulocytes (promyelocytes, myelocytes andmetamyelocytes) > 1% indicates that a LEFT SHIFT is Present. Performed By: #### L 501.5425, L100.0100, L500.2500 ####[facility] [address] [place], [address] Lymphocytes/100 WBC (Bld) 15.9 % Low 19-41 [facility] Comment on above: Performed By: #### L 501.5425, L100.0100, L500.2500 ####[facility] [address] [place], [address] MCH (RBC) [Entitic mass] 27.3 pg Normal 27.0-32.0 [facility] Comment on above: Performed By: #### L 501.5425, L100.0100, L500.2500 ####[facility] [address] [place], [address] MCHC (RBC) [Mass/Vol] 32.0 g/dL Normal 32-36 [facility] Comment on above: Performed By: #### L 501.5425, L100.0100, L500.2500 ####[facility] [address] [place], [address] MCV (RBC) [Entitic vol] 85.1 fL Normal 80-94 [facility] Comment on above: Performed By: #### L 501.5425, L100.0100, L500.2500 ####[facility] [address] [place], [address] Monocytes/100 WBC (Bld) 12.4 % High 0-10 [facility] Comment on above: Performed By: #### L 501.5425, L100.0100, L500.2500 ####[facility] [address] [place], [address] Neutrophils/100 WBC (Bld) 66.0 % Normal 47-70 [facility] Comment on above: Performed By: #### L 501.5425, L100.0100, L500.2500 ####[facility] [address] [place], [address] Nucleated RBC (Bld) [#/Vol] 0 10*3/uL Normal 0-5 [facility] Comment on above: Performed By: #### L 501.5425, L100.0100, L500.2500 ####[facility] [address] [place], [address] Platelet mean volume (Bld) [Entitic vol] 10.8 fL Normal 6.2-12.0 [facility] Comment on above: Performed By: #### L 501.5425, L100.0100, L500.2500 ####[facility] [address] [place], [address] Platelets (Bld) [#/Vol] 323 10*3/uL Normal 150-450 [facility] Comment on above: Performed By: #### L 501.5425, L100.0100, L500.2500 ####[facility] [address] [place], [address] RBC (Bld) [#/Vol] 4.77 10*6/uL Normal 4.6-6.2 [facility] Comment on above: Performed By: #### L 501.5425, L100.0100, L500.2500 ####[facility] [address] [place], [address] RDW SD 40.9 fl Normal 35.1-43.9 [facility] Comment on above: Performed By: #### L 501.5425, L100.0100, L500.2500 ####[facility] [address] [place], [address] WBC (Bld) [#/Vol] 11.0 10*3/uL Normal 4.4-11.0 [facility] Comment on above: Performed By: #### L 501.5425, L100.0100, L500.2500 ####[facility] [address] [place], [address] Chest 1 View (Portable)on Chest 1 View (Portable) Normal [facility] Emergency Department Summary on 06-08-2024 Emergency Department Summary Normal [facility] L501.4020on 06-08-2024 TROPONIN-I HS 7 pg/mL Normal 3.0-78.0 [facility] Comment on above: Result Comment: Plea se Note: New Test Units and Gender Specific Reference Ranges. For more information see Policy Stat Procedure Orient High Sensitivity Troponin (TNIH) and attachments. Performed By: #### L 501.4020 ####[facility] [address] [place], [address] L501.5425on 06-08-2024 TROPONIN-I HS 6 pg/mL Normal 3.0-78.0 [facility] Comment on above: Order Comment: 1Y Result Comment: Plea se Note: New Test Units and Gender Specific Reference Ranges. For more information see Policy Stat Procedure Orient High Sensitivity Troponin (TNIH) and attachments. Performed By: #### L 501.5425, L100.0100, L500.2500 ####[facility] [address] [place], [address] Urine Cultureon 06-01-2024 URC Culture exhibits no growth. Normal [facility] Comment on above: Performed By: #### M 100.2200 ####[facility] [address] [place], [address] 12 Lead EKGon 05-31-2024 12 Lead EKG Normal [facility] CBC W/Diff, Automatedon 05-18 Absolute Lymph 1.65 X10 3/uL Normal 0.83-4.51 [facility] Comment on above: Performed By: #### L 500.4050, L501.4020, L100.0100 ####[facility] [address] [place], [address] Absolute Neut 8.4 X10 3/uL High 2.0-7.7 [facility] Comment on above: Performed By: #### L 500.4050, L501.4020, L100.0100 ####[facility] [address] [place], [address] Basophils/100 WBC (Bld) 0.4 % Normal 0-1 [facility] Comment on above: Performed By: #### L 500.4050, L501.4020, L100.0100 ####[facility] [address] [place], [address] Eosinophils/100 WBC (Bld) 3.5 % Normal 0-5 [facility] Comment on above: Performed By: #### L 500.4050, L501.4020, L100.0100 ####[facility] [address] [place], [address] Erythrocyte distribution width (RBC) [Ratio] 13.1 % Normal 11.6-14.6 [facility] Comment on above: Performed By: #### L 500.4050, L501.4020, L100.0100 ####[facility] [address] [place], [address] Hematocrit (Bld) [Volume fraction] 40.0 % Normal 40-54 [facility] Comment on above: Performed By: #### L 500.4050, L501.4020, L100.0100 ####[facility] [address] [place], [address] Hemoglobin (Bld) [Mass/Vol] 12.8 g/dL Low 13.0-16. 5 [facility] Comment on above: Performed By: #### L 500.4050, L501.4020, L100.0100 ####[facility] [address] [place], [address] IG% 0.300 Normal 0.0-0.9 [facility] Comment on above: Result Comment: IG% - Immature Granulocytes (promyelocytes, myelocytes andmetamyelocytes) > 1% indicates that a LEFT SHIFT is Present. Performed By: #### L 500.4050, L501.4020, L100.0100 ####[facility] [address] [place], [address] Lymphocytes/100 WBC (Bld) 14.1 % Low 19-41 [facility] Comment on above: Performed By: #### L 500.4050, L501.4020, L100.0100 ####[facility] [address] [place], [address] MCH (RBC) [Entitic mass] 27.1 pg Normal 27.0-32.0 [facility] Comment on above: Performed By: #### L 500.4050, L501.4020, L100.0100 ####[facility] [address] [place], [address] MCHC (RBC) [Mass/Vol] 32.0 g/dL Normal 32-36 [facility] Comment on above: Performed By: #### L 500.4050, L501.4020, L100.0100 ####[facility] [address] [place], [address] MCV (RBC) [Entitic vol] 84.6 fL Normal 80-94 [facility] Comment on above: Performed By: #### L 500.4050, L501.4020, L100.0100 ####[facility] [address] [place], [address] Monocytes/100 WBC (Bld) 10.3 % High 0-10 [facility] Comment on above: Performed By: #### L 500.4050, L501.4020, L100.0100 ####[facility] [address] [place], [address] Neutrophils/100 WBC (Bld) 71.4 % High 47-70 [facility] Comment on above: Performed By: #### L 500.4050, L501.4020, L100.0100 ####[facility] [address] [place], [address] Nucleated RBC (Bld) [#/Vol] 0 10*3/uL Normal 0-5 [facility] Comment on above: Performed By: #### L 500.4050, L501.4020, L100.0100 ####[facility] [address] [place], [address] Platelet mean volume (Bld) [Entitic vol] 10.5 fL Normal 6.2-12.0 [facility] Comment on above: Performed By: #### L 500.4050, L501.4020, L100.0100 ####[facility] [address] [place], [address] Platelets (Bld) [#/Vol] 301 10*3/uL Normal 150-450 [facility] Comment on above: Performed By: #### L 500.4050, L501.4020, L100.0100 ####[facility] [address] [place], [address] RBC (Bld) [#/Vol] 4.73 10*6/uL Normal 4.6-6.2 [facility] Comment on above: Performed By: #### L 500.4050, L501.4020, L100.0100 ####[facility] [address] [place], [address] RDW SD 40.3 fl Normal 35.1-43.9 [facility] Comment on above: Performed By: #### L 500.4050, L501.4020, L100.0100 ####[facility] [address] [place], [address] WBC (Bld) [#/Vol] 11.7 10*3/uL High 4.4-11.0 [facility] Comment on above: Performed By: #### L 500.4050, L501.4020, L100.0100 ####[facility] [address] [place], [address] CNOVon 05-31-2024 CNOV Office Visit (UCWSTR ) FAISAL ALARCON ([id number]) 1945 M Date Time Provider Department 05/31/24 9:00 AM AMAIRANI MCCLENDON [facility] [place] During your visit today, we recorded the following information about you: Amairani Mcclendon APRN.PCU RN 05/31/2024 8:58 AM Signed Patient came in [...] times a day before meals. Getting through [facility] - dilTIAZem CD (CARDIZEM CD, CARTIA XT) [...] mouth every 12 hours. 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 - insulin glargine (BASAGLAR KWIKPEN U-100 INSULIN) 100 unit/mL (3 mL) Inject 90 Units subcutaneously daily at bedtime. - finasteride (PROSCAR) 5 mg tablet - aspirin 81 mg chewable tablet Take 81 mg by mouth once daily. - insulin needles, DISPOSABLE, (1ST TIER UNIFINE PENTIPS) 31 gauge x 5/16" ndle 1 Each once daily. DX: E11.9 Insulin: Yes - Insulin Syringe-Needle U-100 1/2 mL 29 x 1/2" syrg 1 Each once daily. USE ONE [...] Diagnosed: 06/06/2023 (more content not included)... Normal [facility] Chest 1 View (Portable)on Chest 1 View (Portable) Normal [facility] Comprehensive Metabolic Prof ilon 05-31-2024 Albumin [Mass/Vol] 3.3 g/dL Normal 3.2-5.0 [facility] Comment on above: Order Comment: 'TROP ' Serial specimen #1, #2 or #3: 1 Performed By: #### L 500.4050, L501.4020, L100.0100 ####[facility] [address] [place], [address] Albumin/Globulin [Mass ratio] 0.8 {ratio} Low 0.9-2.4 [facility] Comment on above: Order Comment: 'TROP ' Serial specimen #1, #2 or #3: 1 Performed By: #### L 500.4050, L501.4020, L100.0100 ####[facility] [address] [place], [address] ALK P 92 U/L Normal 45-117 [facility] Comment on above: Order Comment: 'TROP ' Serial specimen #1, #2 or #3: 1 Performed By: #### L 500.4050, L501.4020, L100.0100 ####[facility] [address] [place], [address] ALT [Catalytic activity/Vol] 23 U/L Normal 16-61 [facility] Comment on above: Order Comment: 'TROP ' Serial specimen #1, #2 or #3: 1 Performed By: #### L 500.4050, L501.4020, L100.0100 ####[facility] [address] [place], [address] AST [Catalytic activity/Vol] 15 U/L Normal 15-37 [facility] Comment on above: Order Comment: 'TROP ' Serial specimen #1, #2 or #3: 1 Performed By: #### L 500.4050, L501.4020, L100.0100 ####[facility] [address] [place], [address] Bilirubin [Mass/Vol] 0.30 mg/dL Normal 0.20-1.00 [facility] Comment on above: Order Comment: 'TROP ' Serial specimen #1, #2 or #3: 1 Result Comment: For patients on eltrombopag therapy, use of Dimension Orient TBIL is not recommended. Performed By: #### L 500.4050, L501.4020, L100.0100 ####[facility] [address] [place], [address] BUN/CRE 18.0 RATIO Normal 10-20 [facility] Comment on above: Order Comment: 'TROP ' Serial specimen #1, #2 or #3: 1 Performed By: #### L 500.4050, L501.4020, L100.0100 ####[facility] [address] [place], [address] CA,Total 9.9 mg/dL Normal 8.5-10.1 [facility] Comment on above: Order Comment: 'TROP ' Serial specimen #1, #2 or #3: 1 Performed By: #### L 500.4050, L501.4020, L100.0100 ####[facility] [address] [place], [address] Chloride [Moles/Vol] 97 mmol/L Low 98-107 [facility] Comment on above: Order Comment: 'TROP ' Serial specimen #1, #2 or #3: 1 Performed By: #### L 500.4050, L501.4020, L100.0100 ####[facility] [address] [place], [address] CO2 [Moles/Vol] 25.0 mmol/L Normal 21.0-32.0 [facility] Comment on above: Order Comment: 'TROP ' Serial specimen #1, #2 or #3: 1 Performed By: #### L 500.4050, L501.4020, L100.0100 ####[facility] [address] [place], [address] Creatinine [Mass/Vol] 1.33 mg/dL High 0.70-1.30 [facility] Comment on above: Order Comment: 'TROP ' Serial specimen #1, #2 or #3: 1 Result Comment: The validity of the calculated GFR GFRAA in patients over70 years has not been determined. Clinical correlation isessential. Performed By: #### L 500.4050, L501.4020, L100.0100 ####[facility] [address] [place], [address] ECRCL 63.90 ml/min Normal [facility] Comment on above: Order Comment: 'TROP ' Serial specimen #1, #2 or #3: 1 Performed By: #### L 500.4050, L501.4020, L100.0100 ####[facility] [address] [place], [address] EST GFR - AA 67 mL/min Normal >60 [facility] Comment on above: Order Comment: 'TROP ' Serial specimen #1, #2 or #3: 1 Result Comment: Afri can [place] GFR Calc Performed By: #### L 500.4050, L501.4020, L100.0100 ####[facility] [address] [place], [address] GAP 9 Normal 5-15 [facility] Comment on above: Order Comment: 'TROP ' Serial specimen #1, #2 or #3: 1 Performed By: #### L 500.4050, L501.4020, L100.0100 ####[facility] [address] [place], [address] GFR/1.73 sq M.predicted among non-blacks MDRD (S/P/Bld) [Vol rate/Area] 55 mL/min/{1.73_m2} Low >60 [facility] Comment on above: Order Comment: 'TROP ' Serial specimen #1, #2 or #3: 1 Result Comment: Non- GFR Calc Performed By: #### L 500.4050, L501.4020, L100.0100 ####[facility] [address] [place], [address] Globulin (S) [Mass/Vol] 4.2 g/dL Normal 2.2-4.2 [facility] Comment on above: Order Comment: 'TROP ' Serial specimen #1, #2 or #3: 1 Performed By: #### L 500.4050, L501.4020, L100.0100 ####[facility] [address] [place], [address] Glucose [Mass/Vol] 201 mg/dL High 74-106 [facility] Comment on above: Order Comment: 'TROP ' Serial specimen #1, #2 or #3: 1 Result Comment: Gluc ose result greater than or equal to 200 mg/dLsuggests DIABETES MELLITUS per A.D.A. criteria. Performed By: #### L 500.4050, L501.4020, L100.0100 ####[facility] [address] [place], [address] Potassium [Moles/Vol] 4.3 mmol/L Normal 3.5-5.1 [facility] Comment on above: Order Comment: 'TROP ' Serial specimen #1, #2 or #3: 1 Performed By: #### L 500.4050, L501.4020, L100.0100 ####[facility] [address] [place], [address] Sodium [Moles/Vol] 131 mmol/L Low 136-145 [facility] Comment on above: Order Comment: 'TROP ' Serial specimen #1, #2 or #3: 1 Performed By: #### L 500.4050, L501.4020, L100.0100 ####[facility] [address] [place], [address] T PROT 7.5 g/dL Normal 6.4-8.2 [facility] Comment on above: Order Comment: 'TROP ' Serial specimen #1, #2 or #3: 1 Performed By: #### L 500.4050, L501.4020, L100.0100 ####[facility] [address] [place], [address] Urea nitrogen [Mass/Vol] 24 mg/dL High 7-18 [facility] Comment on above: Order Comment: 'TROP ' Serial specimen #1, #2 or #3: 1 Performed By: #### L 500.4050, L501.4020, L100.0100 ####[facility] [address] [place], [address] Emergency Department Summary on 05-31-2024 Emergency Department Summary Normal [facility] L501.4020on 05-31-2024 TROPONIN-I HS 7 pg/mL Normal 3.0-78.0 [facility] Comment on above: Order Comment: 'TROP ' Serial specimen #1, #2 or #3: 1 Result Comment: Plea se Note: New Test Units and Gender Specific Reference Ranges. For more information see Policy Stat Procedure Orient High Sensitivity Troponin (TNIH) and attachments. Performed By: #### L 500.4050, L501.4020, L100.0100 ####[facility] [address] [place], [address] M100.678on 05-31-2024 M100.678 Pending SARS-CoV-2 (COVID 19) Negative INFLUENZA A Negative INFLUENZA B Negative RSV PCR Negative Normal [facility] Comment on above: Performed By: #### M 100.678 ####[facility] [address] [place], [address] Urinalysis, Completeon 05-31 BACTERIA 1+ /hpf Normal None Seen [facility] Comment on above: Order Comment: GO CTOR TO SPECIFY Performed By: #### L 400.0001 ####[facility] [address] [place], [address] RBC 5-10 SEEN Normal 0-5 [facility] Comment on above: Order Comment: GO CTOR TO SPECIFY Performed By: #### L 400.0001 ####[facility] [address] [place], [address] WBC 50-100 SEEN Normal 0-5 [facility] Comment on above: Order Comment: GO CTOR TO SPECIFY Performed By: #### L 400.0001 ####[facility] [address] [place], [address] EPI,SQUAMOUS 0 SEEN Normal 0-5 [facility] Comment on above: Order Comment: GO CTOR TO SPECIFY Performed By: #### L 400.0001 ####[facility] [address] [place], [address] Mucus Ql (Urine sed) 0 SEEN Normal [facility] Comment on above: Order Comment: GO CTOR TO SPECIFY Performed By: #### L 400.0001 ####[facility] [address] [place], [address] HBA1C (OUTSIDE)on 05-07-2024 HbA1c (Bld) [Mass fraction] 7.2 % [facility] Basic metabolic 2000 panelon 04-12-2024 Anion gap [Moles/Vol] 14 mmol/L Normal 8-15 [facility] Comment on above: Order Comment: Speci men Type: BLOOD SPECIMEN Ordering Facility: [facility] Address: [address] [place] [address] Performed By: #### 2 4321-2 #### [facility][1] [facility] CLIA [id number] [address] [place] [address] [place] Calcium [Mass/Vol] 9.6 mg/dL Normal 8.5-10.2 [facility] Comment on above: Order Comment: Speci men Type: BLOOD SPECIMEN Ordering Facility: [facility] Address: [facility] [place] [address] Performed By: #### 2 4321-2 #### [facility] CLIA [id number] [address] [place] Chloride [Moles/Vol] 97 mmol/L Low 98-107 [facility] Comment on above: Order Comment: Speci men Type: BLOOD SPECIMEN Ordering Facility: [facility] Address: [address] [place] [address] Performed By: #### 2 4321-2 #### [facility][1] [facility] CLIA [id number] [address] [place] CO2 [Moles/Vol] 22 mmol/L Normal 22-30 [facility] Comment on above: Order Comment: Speci men Type: BLOOD SPECIMEN Ordering Facility: [facility] Address: [address] [place] [address] Performed By: #### 2 4321-2 #### [facility][1] [facility] CLIA [id number] [address] [place] Creatinine [Mass/Vol] 1.10 mg/dL Normal 0.73-1.22 [facility] Comment on above: Order Comment: Speci men Type: BLOOD SPECIMEN Ordering Facility: [facility] Address: [address] [place] [address] Performed By: #### 2 4321-2 #### [facility] CLIA [id number] [address] [place] Creatinine and Glomerular filtration rate.predicted panel (S/P/Bld) 68 mL/min/1.73m??? Normal >=60 [facility] Comment on above: Order Comment: Speci men Type: BLOOD SPECIMEN Ordering Facility: [facility] Address: [address] [place] [address] Result Comment: Racquel mated Glomerular Filtration Rate [...] GFR. Performed By: #### 2 4321-2 #### [facility] CLIA [id number] 1 [place] [address] [place] Glucose [Mass/Vol] 199 mg/dL High 74-99 [facility] Comment on above: Order Comment: Salvatore de la rosa Type: BLOOD SPECIMEN Ordering Facility: [facility] Address: [address] [place] [address] Result Comment: The [place] [employer] Association (ADA) provides guidance for cutoff [...] Standards of Medical Care in Diabetes 2016, [place] [employer]. Diabetes Care. 2016.39(Suppl 1). Performed By: #### 2 4321-2 #### [facility] CLIA [id number] [address] [place] [address] [place] Potassium [Moles/Vol] 4.2 mmol/L Normal 3.7-5.1 [facility] Comment on above: Order Comment: Salvatore de la rosa Type: BLOOD SPECIMEN Ordering Facility: [facility] Address: [address] [id number] Performed By: #### 2 4321-2 #### [facility] CLIA [id number] [address] [place] [address] [place] Sodium [Moles/Vol] 133 mmol/L Low 136-144 [facility] Comment on above: Order Comment: Salvatore de la rosa Type: BLOOD SPECIMEN Ordering Facility: [facility] Address: [address] [place] [address] Performed By: #### 2 4321-2 #### [facility] CLIA [id number] [address] Urea nitrogen [Mass/Vol] 27 mg/dL High 9-24 [facility] Comment on above: Order Comment: Speci men Type: BLOOD SPECIMEN Ordering Facility: [facility] Address: [address] [place] [address] Performed By: #### 2 4321-2 #### [facility] CLIA [id number] [address] CBC W Auto Differential pane l (Bld)on 04-12-2024 Basophils (Bld) [#/Vol] 0.06 10*3/uL Normal <0.11 [facility] Comment on above: Order Comment: Speci men Type: BLOOD SPECIMEN Ordering Facility: [facility] Address: [address] [place] [address] Performed By: #### 5 7021-8 #### [facility] CLIA [id number] [address] Basophils/100 WBC (Bld) 0.5 % Normal [facility] Comment on above: Order Comment: Speci men Type: BLOOD SPECIMEN Ordering Facility: [facility] Address: [address] [place] [address] Performed By: #### 5 7021-8 #### [facility] CLIA [id number] [address] Differential cell count method Nom (Bld) Auto Normal [facility] Comment on above: Order Comment: Speci men Type: BLOOD SPECIMEN Ordering Facility: [facility] Address: [address] [place] [address] Performed By: #### 5 7021-8 #### [facility] CLIA [id number] [address] [place] Eosinophils (Bld) [#/Vol] 0.39 10*3/uL Normal <0.46 [facility] Comment on above: Order Comment: Speci men Type: BLOOD SPECIMEN Ordering Facility: [facility] Address: [address] [place] [address] Performed By: #### 5 7021-8 #### [facility] CLIA [id number] [address] [place] Eosinophils/100 WBC (Bld) 3.2 % Normal [facility] Comment on above: Order Comment: Speci men Type: BLOOD SPECIMEN Ordering Facility: [facility] Address: [address] [place] [address] Performed By: #### 5 7021-8 #### [facility] CLIA [id number] [address] [place] Erythrocyte distribution width (RBC) [Ratio] 13.3 % Normal 11.5-15.0 [facility] Comment on above: Order Comment: Speci men Type: BLOOD SPECIMEN Ordering Facility: [facility] Address: [address] [place] [address] Performed By: #### 5 7021-8 #### [facility] CLIA [id number] [address] [place] Hematocrit (Bld) [Volume fraction] 40.6 % Normal 39.0-51.0 [facility] Comment on above: Order Comment: Speci men Type: BLOOD SPECIMEN Ordering Facility: [facility] Address: [address] [place] [address] Performed By: #### 5 7021-8 #### [facility] CLIA [id number] [address] [place] Hemoglobin (Bld) [Mass/Vol] 13.4 g/dL Normal 13.0-17. 0 [facility] Comment on above: Order Comment: Speci men Type: BLOOD SPECIMEN Ordering Facility: [facility] Address: [address] [place] [address] Performed By: #### 5 7021-8 #### [facility] CLIA [id number] [address] [place] Immature granulocytes (Bld) [#/Vol] 0.05 10*3/uL Normal <0.10 [facility] Comment on above: Order Comment: Speci men Type: BLOOD SPECIMEN Ordering Facility: [facility] Address: [facility] [place] [address] Performed By: #### 5 7021-8 #### [facility] CLIA [id number] [address] Immature granulocytes/100 WBC (Bld) 0.4 % Normal [facility] Comment on above: Order Comment: Speci men Type: BLOOD SPECIMEN Ordering Facility: [facility] Address: [address] [place] [address] Performed By: #### 5 7021-8 #### [facility] CLIA [id number] [address] OF [facility] Lymphocytes (Bld) [#/Vol] 2.34 10*3/uL Normal 1.00-4.0 0 [facility] Comment on above: Order Comment: Speci men Type: BLOOD SPECIMEN Ordering Facility: [facility] Address: [address] [place] [address] Performed By: #### 5 7021-8 #### [facility] CLIA [id number] [address] Lymphocytes/100 WBC (Bld) 19.1 % Normal [facility] Comment on above: Order Comment: Speci men Type: BLOOD SPECIMEN Ordering Facility: [facility] Address: [address] [place] [address] Performed By: #### 5 7021-8 #### [facility] CLIA [id number] [address] [place] MCH (RBC) [Entitic mass] 28.4 pg Normal 26.0-34.0 [facility] Comment on above: Order Comment: Speci men Type: BLOOD SPECIMEN Ordering Facility: [facility] Address: [address] [place] [address] Performed By: #### 5 7021-8 #### [facility] CLIA [id number] [address] OF [facility] MCHC (RBC) [Mass/Vol] 33.0 g/dL Normal 30.5-36.0 [facility] Comment on above: Order Comment: Speci men Type: BLOOD SPECIMEN Ordering Facility: [facility] Address: [address] [place] [address] Performed By: #### 5 7021-8 #### [facility] CLIA [id number] [address] [place] MCV (RBC) [Entitic vol] 86.0 fL Normal 80.0-100.0 [facility] Comment on above: Order Comment: Speci men Type: BLOOD SPECIMEN Ordering Facility: [facility] Address: [address] [place] [address] Performed By: #### 5 7021-8 #### [facility] CLIA [id number] [address] Monocytes (Bld) [#/Vol] 1.38 10*3/uL High <0.87 [facility] Comment on above: Order Comment: Speci men Type: BLOOD SPECIMEN Ordering Facility: [facility] Address: [address] [place] [address] Performed By: #### 5 7021-8 #### [facility] CLIA [id number] [address] Monocytes/100 WBC (Bld) 11.3 % Normal [facility] Comment on above: Order Comment: Speci men Type: BLOOD SPECIMEN Ordering Facility: [facility] Address: [address] [place] [address] Performed By: #### 5 7021-8 #### [facility] CLIA [id number] [address] [place] Neutrophils (Bld) [#/Vol] 8.02 10*3/uL High 1.45-7.5 0 [facility] Comment on above: Order Comment: Speci men Type: BLOOD SPECIMEN Ordering Facility: [facility] Address: [address] [place] [address] Performed By: #### 5 7021-8 #### [facility] CLIA [id number] [address] Neutrophils/100 WBC (Bld) 65.5 % Normal [facility] Comment on above: Order Comment: Speci men Type: BLOOD SPECIMEN Ordering Facility: [facility] Address: [address] [place] [address] Performed By: #### 5 7021-8 #### [facility] CLIA [id number] [address] [place] Nucleated RBC (Bld) [#/Vol] 10*3/uL Normal <0.01 [facility] Comment on above: Order Comment: Speci men Type: BLOOD SPECIMEN Ordering Facility: [facility] Address: [address] [place] [address] Performed By: #### 5 7021-8 #### [facility] CLIA [id number] [address] Nucleated RBC/100 WBC (Bld) [Ratio] 0.0 /100 WBC Normal [facility] Comment on above: Order Comment: Speci men Type: BLOOD SPECIMEN Ordering Facility: [facility] Address: [address] [place] [address] Performed By: #### 5 7021-8 #### [facility] CLIA [id number] [address] Platelet mean volume (Bld) [Entitic vol] 10.7 fL Normal 9.0-12.7 [facility] Comment on above: Order Comment: Speci men Type: BLOOD SPECIMEN Ordering Facility: [facility] Address: [address] [place] [address] Performed By: #### 5 7021-8 #### [facility] CLIA [id number] [address] [place] Platelets (Bld) [#/Vol] 268 10*3/uL Normal 150-400 [facility] Comment on above: Order Comment: Speci men Type: BLOOD SPECIMEN Ordering Facility: [facility] Address: [address] [place] [id number] Performed By: #### 5 7021-8 #### [facility] CLIA [id number] [address] OF [facility] RBC (Bld) [#/Vol] 4.72 10*6/uL Normal 4.20-6.00 [facility] Comment on above: Order Comment: Speci men Type: BLOOD SPECIMEN Ordering Facility: [facility] Address: [address] [place] [address] Performed By: #### 5 7021-8 #### [facility] CLIA [id number] [address] WBC (Bld) [#/Vol] 12.24 10*3/uL High 3.70-11.00 [facility] Comment on above: Order Comment: Speci men Type: BLOOD SPECIMEN Ordering Facility: [facility] Address: [address] [place] [address] Performed By: #### 5 7021-8 #### [facility] CLIA [id number] [address] ED PROV NOTEon 04-12-2024 ED PROV NOTE HNO ID: [id number] Author: MELVIN BINGHMA MD Service: Emergency Medicine Author Type: Resident [...] having hematuria since Sunday- was seen in [place] [facility] and urologist this week. Pt states [...] He went to the emergency department in [place] and was told to follow-up with urology outpatient. Patient had urology appointment in [place] on of this past week who planned for cystoscopy on April 29. They were told that if he had any new symptoms to go to the emergency department. Patient went back to the emergency department in [place] where they performed lab work that was negative for anemia. The patient is now reporting continued dizziness and headache. Patient inquiring if they can see urology for cystoscopy on a more urgent basis here at [facility]. Patient is well appearing in no [...] Diagnostic Testi (more content not included)... Normal [facility] Urinalysis complete panel (U )on 04-12-2024 Bacteria LM.HPF (Urine sed) [#/Area] Few Abnormal None Seen [facility] Comment on above: Order Comment: Speci men Type: URINE SPECIMEN Ordering Facility: [facility] Address: [address] [place] [address] Performed By: #### 2 4356-8 #### [facility] CLIA [id number] [address] Bilirubin Ql (U) 1+ Abnormal Negative [facility] Comment on above: Order Comment: Speci men Type: URINE SPECIMEN Ordering Facility: [facility] Address: [address] [place] [address] Result Comment: Sugg est correlation with clinical findings and serum bilirubin if clinically indicated. Performed By: #### 2 4356-8 #### [facility] CLIA [id number] [address] Clarity (Unsp spec) Cloudy Abnormal Clear [facility] Comment on above: Order Comment: Speci men Type: URINE SPECIMEN Ordering Facility: [facility] Address: [address] [place] [address] Performed By: #### 2 4356-8 #### [facility] CLIA [id number] [address] OF [facility] Color (U) Yellow Normal Yellow [facility] Comment on above: Order Comment: Speci men Type: URINE SPECIMEN Ordering Facility: [facility] Address: [address] [place] [address] Performed By: #### 2 4356-8 #### [facility] CLIA [id number] [address] [place] Glucose Test strip (U) [Mass/Vol] Trace Abnormal Negative [facility] Comment on above: Order Comment: Speci men Type: URINE SPECIMEN Ordering Facility: [facility] Address: [address] [place] [address] Performed By: #### 2 4356-8 #### [facility] CLIA [id number] [address] OF [facility] Hemoglobin Ql (U) 3+ Abnormal Negative [facility] Comment on above: Order Comment: Speci men Type: URINE SPECIMEN Ordering Facility: [facility] Address: [address] [place] [address] Performed By: #### 2 4356-8 #### [facility] CLIA [id number] [address] OF [facility] Ketones Ql (U) Trace Abnormal Negative [facility] Comment on above: Order Comment: Speci men Type: URINE SPECIMEN Ordering Facility: [facility] Address: [address] [place] [address] Performed By: #### 2 4356-8 #### [facility] CLIA [id number] [address] Leukocyte esterase Test strip Ql (U) Negative Normal Negative [facility] Comment on above: Order Comment: Speci men Type: URINE SPECIMEN Ordering Facility: [facility] Address: [address] [place] [address] Performed By: #### 2 4356-8 #### [facility] CLIA [id number] [address] STATES [facility] Nitrite Ql (U) Negative Normal Negative [facility] Comment on above: Order Comment: Speci men Type: URINE SPECIMEN Ordering Facility: [facility] Address: [address] [place] [address] Performed By: #### 2 4356-8 #### [facility] CLIA [id number] [address] [place] pH (U) 6.0 [pH] Normal 5.0-8.0 [facility] Comment on above: Order Comment: Speci men Type: URINE SPECIMEN Ordering Facility: [facility] Address: [address] [place] [address] Performed By: #### 2 4356-8 #### [facility] CLIA [id number] 1 [place] [address] [place] Protein (U) [Mass/Vol] 1+ Abnormal Negative [facility] Comment on above: Order Comment: Speci men Type: URINE SPECIMEN Ordering Facility: [facility] Address: [address] [place] [address] Performed By: #### 2 4356-8 #### [facility] CLIA [id number] [address] RBC LM.HPF (Urine sed) [#/Area] /[HPF] Abnormal 0-3 /HPF [facility] Comment on above: Order Comment: Speci men Type: URINE SPECIMEN Ordering Facility: [facility] Address: [address] [place] [address] Performed By: #### 2 4356-8 #### [facility] CLIA [id number] [address] Specific gravity (U) [Rel density] >=1.030 High 1.005-1.030 [facility] Comment on above: Order Comment: Speci men Type: URINE SPECIMEN Ordering Facility: [facility] Address: [address] [place] [address] Performed By: #### 2 4356-8 #### [facility] CLIA [id number] [address] Urobilinogen Ql (U) 0.2 EU/dL Normal 0.2 EU/d L, 1.0 EU/dL [facility] Comment on above: Order Comment: Speci men Type: URINE SPECIMEN Ordering Facility: [facility] Address: [address] [place] [address] Performed By: #### 2 4356-8 #### [facility] CLIA [id number] [address] WBC LM.HPF (Urine sed) [#/Area] 6-10 /HPF Abnormal 0-5 /HPF [facility] Comment on above: Order Comment: Speci men Type: URINE SPECIMEN Ordering Facility: [facility] Address: [address] [place] [address] Performed By: #### 2 4356-8 #### [facility] CLIA [id number] 1 [place] [address] [place] XR Chest PA and Lateralon IMPRESSION: No developing abnormality or acute process Pipe Caulker: BERNIE Transcribe Date/Time: Feb 05 2024 8:15A Dictated by : TRES CARSON MD This examination was interpreted and the report reviewed and electronically signed by: TRES CARSON MD on Feb 05 2024 8:16AM [facility] DIVISION OF RADIOLOGY * * *Final [...] change and osteophytosis. DIVISION OF RADIOLOGY Provider, [facility] - 02/05/2024 * * *Final Report* * [...] IMPRESSION: No developing abnormality or acute process Pipe Caulker: PSCB Transcribe Date/Time: Feb 05 2024 8:15A Dictated by : TRES CARSON MD This examination was interpreted and the report reviewed and electronically signed by: TRES CARSON MD on Feb 05 2024 8:16AM EST [facility] XR Chest PA and LateralOrder ed By: Ccf Provider on 02-05-2024 [facility] CBC W Auto Differential pane l (Bld)on 02-04-2024 Basophils (Bld) [#/Vol] 0.05 10*3/uL [facility] Basophils/100 WBC (Bld) 0.4 % [facility] Differential cell count method Nom (Bld) Auto [facility] Eosinophils (Bld) [#/Vol] 0.34 10*3/uL [facility] Eosinophils/100 WBC (Bld) 3.0 % [facility] Erythrocyte distribution width (RBC) [Ratio] 12.9 % 11.5 - 15.0 % [facility] Hematocrit (Bld) [Volume fraction] 41.9 % 39.0 - 51.0 % [facility] Hemoglobin (Bld) [Mass/Vol] 13.5 g/dL 13.0 - 17.0 g/dL [facility] Immature granulocytes (Bld) [#/Vol] 0.05 10*3/uL [facility] Immature granulocytes/100 WBC (Bld) 0.4 % [facility] Interpretation and review of laboratory results Abnormal [facility] Lymphocytes (Bld) [#/Vol] 1.59 10*3/uL [facility] Lymphocytes/100 WBC (Bld) 14.2 % [facility] MCH (RBC) [Entitic mass] 28.4 pg 26. 0 - 34.0 pg [facility] MCHC (RBC) [Mass/Vol] 32.2 g/dL 30.5 - 36.0 g/dL [facility] MCV (RBC) [Entitic vol] 88.2 fL 80.0 - 100.0 fL [facility] Monocytes (Bld) [#/Vol] 1.24 10*3/uL High [facility] Monocytes/100 WBC (Bld) 11.1 % [facility] Neutrophils (Bld) [#/Vol] 7.91 10*3/uL High [facility] Neutrophils/100 WBC (Bld) 70.9 % [facility] Nucleated RBC (Bld) [#/Vol] NINF [facility] Nucleated RBC/100 WBC (Bld) [Ratio] 0.0 % /100 WBC [facility] Platelet mean volume (Bld) [Entitic vol] 11.4 fL 9.0 - 12.7 fL [facility] Platelets (Bld) [#/Vol] 256 10*3/uL [facility] RBC (Bld) [#/Vol] 4.75 10*6/uL 4.20 - 6.0 0 m/uL [facility] WBC (Bld) [#/Vol] 11.18 10*3/uL [facility] Radiology Study observation (narrative) [facility] Absolute lymphocyte countOrd ered By: Tre Johnson on 09-22-2023 Lymphocytes Auto (Unsp spec) [#/Vol] 1.76 10*3/uL 0.83-4.51 [facility] Basophil percentageOrdered B y: Tre Johnson on 09-22-2023 Basophils/100 WBC (Bld) 0.4 % 0-1 [facility] Chloride [Moles/Vol] 106 mmol/L 98-107 [facility] Eosinophils/100 WBC (Bld) 3.4 % 0-5 [facility] Glucose [Mass/Vol] 168 mg/dL 74-106 [facility] Comment on above: Fasting Glucose resu lt greater than or equal to 126 mg/dL suggests DIABETES MELLITUS per A.D.A. criteria. Neutrophils (Bld) [#/Vol] 8.5 10*3/uL 2.0-7.7 [facility] Neutrophils/100 WBC (Bld) 71.2 % 47-70 [facility] Potassium [Moles/Vol] 4.0 mmol/L 3.5-5.1 [facility] Sodium [Moles/Vol] 137 mmol/L 136-145 [facility] WBC (Bld) [#/Vol] 12.0 10*3/uL 4.4-11.0 [facility] Blood erythrocytes count (nu mber/volume)Ordered By: Tre Johnson on 09-22-2023 RBC (Bld) [#/Vol] 5.22 10*6/uL 4.6-6.2 [facility] Blood hemoglobin measurement (mass/volume)Ordered By: Tre Johnson on 09-22-2023 Hemoglobin (Bld) [Mass/Vol] 14.1 g/dL 13.0-16. 5 [facility] Blood lymphocytes/100 leukoc ytesOrdered By: Tre Johnson on 09-22-2023 Lymphocytes/100 WBC (Bld) 14.7 % 19-41 [facility] Blood monocytes/100 leukocyt esOrdered By: Tre Johnson on 09-22-2023 Monocytes/100 WBC (Bld) 9.9 % 0-10 [facility] Blood platelet mean volumeOr dered By: Tre Johnson on 09-22-2023 Platelet mean volume (Bld) [Entitic vol] 10.9 fL 6.2-12.0 [facility] Determination of erythrocyte mean corpuscular volume (MCV)Ordered By: Tre Johnson on 09-22-2023 MCV (RBC) [Entitic vol] 83.5 fL 80-94 [facility] Hematocrit Auto (Bld) [Volum e fraction]Ordered By: Tre Johnson on 09-22-2023 Hematocrit (Bld) [Volume fraction] 43.6 % 40-54 [facility] - Chemistry and C hemistry - challengeOrdered By: Tre Johnson on 09-22-2023 CO2 [Moles/Vol] 25.0 mmol/L 21.0-32.0 [facility] Urea nitrogen/Creatinine [Mass ratio] 16.8 mg/mg 10-20 [facility] - Hematology and Cell countsOrdered By: Tre Johnson on 09-22-2023 Erythrocyte distribution width (RBC) [Entitic vol] 43.0 fL 35.1-43.9 [facility] Erythrocyte distribution width (RBC) [Ratio] 14.2 % 11.6-14.6 [facility] Immature granulocytes/100 WBC (Bld) 0.400 % 0.0-0.9 [facility] Comment on above: IG% - Immature Granu locytes (promyelocytes, myelocytes and metamyelocytes) > 1% indicates that a LEFT SHIFT is Present. MCH (RBC) [Entitic mass] 27.0 pg 27.0-32.0 [facility] Nucleated RBC/100 WBC (Bld) [Ratio] 0 % 0-5 [facility] MCHC Auto (RBC) [Mass/Vol]Or dered By: Tre Johnson on 09-22-2023 MCHC (RBC) [Mass/Vol] 32.3 g/dL 32-36 [facility] No Panel InformationOrdered By: Tre Johnson on 09-22-2023 Troponin I High Sensitivity 9 pg/mL 3.0-78.0 [facility] Comment on above: Please Note: New Carmen t Units and Gender Specific Reference Ranges. For more information see Policy Stat Procedure Orient High Sensitivity Troponin (TNIH) and attachments. Estimated Creatinine Clearance Calc 63.26 ml/min [facility] Estimated GFR (MDRD) Amer 86 mL/min >60 [facility] Comment on above: GFR Calc Estimated GFR (MDRD) Non-Af Amer 71 mL/min >60 [facility] Comment on above: Non- GFR Calc Platelets bldOrdered By: Tashi Johnson on 09-22-2023 Platelets (Bld) [#/Vol] 210 10*3/uL 150-450 [facility] Comment on above: NO PLATELET CLUMPS Serum or plasma calcium nahomy urement (mass/volume)Ordered By: Tre Johnson on 09-22-2023 Calcium [Mass/Vol] 9.4 mg/dL 8.5-10.1 [facility] Serum or plasma creatinine m easurement (mass/volume)Ordered By: Tre Johnson on 09-22-2023 Creatinine [Mass/Vol] 1.07 mg/dL 0.70-1.30 [facility] Comment on above: The validity of the calculated GFR & GFRAA in patients over 70 years has not been determined. Clinical correlation is essential. Serum or plasma urea nitroge n measurement (mass/volume)Ordered By: Tre Johnson on 09-22-2023 Urea nitrogen [Mass/Vol] 18 mg/dL 7-18 [facility] Thin prep Papanicolaou smear with manual screeningOrdered By: Tre Johnson on 09-22-2023 Thin prep Papanicolaou smear with manual screening 6 5-15 [facility] XR Chest PA and Lateralon IMPRESSION: Diffuse coarsening of the lung markings, with areas of linear atelectasis or fibrosis. Stable Cardiomegaly Pipe Caulker: BERNIE Transcribe Date/Time: Sep 11 2023 12:08P Dictated by : TRES CARSON MD This examination was interpreted and the report reviewed and electronically signed by: TRES CARSON MD on Sep 11 2023 12:10PM [facility] DIVISION OF RADIOLOGY * * *Final [...] Multilevel degenerative change. DIVISION OF RADIOLOGY Provider, Jammie Joel garcia Conrad - 09/11/2023 * * *Final Report* * [...] of linear atelectasis or fibrosis. Stable Cardiomegaly Pipe Caulker: PSCB Transcribe Date/Time: Sep 11 2023 12:08P Dictated by : TRES CARSON MD This examination was interpreted and the report reviewed and electronically signed by: TRES CARSON MD on Sep 11 2023 12:10PM EST [facility] XR Chest PA and LateralOrder ed By: Ccf Provider on 09-11-2023 [facility] XR Chest PA and Lateralon Radiology Study observation (narrative) [facility] XR Pelvis and Hip - right AP and Lateral frogon 07-25-2023 IMPRESSION: Minimal right hip osteoarthritis without acute osseous abnormality. Pipe Caulker: BERNIE Transcribe Date/Time: Jul 25 2023 9:21A Dictated by : CARIAN IGLESIAS DO This examination was interpreted and the report reviewed and electronically signed by: CARINA IGLESIAS DO on Jul 25 2023 9:22AM EST DIVISION OF RADIOLOGY * * *Final [...] spine. Pelvic enthesopathy. DIVISION OF RADIOLOGY Provider, [facility] - 07/25/2023 * * *Final Report* * [...] right hip osteoarthritis without acute osseous abnormality. Pipe Caulker: BERNIE Transcribe Date/Time: Jul 25 2023 9:21A Dictated by : CARINA IGLESIAS DO This examination was interpreted and the report reviewed and electronically signed by: CARINA IGLESIAS DO on Jul 25 2023 9:22AM EST [facility] XR Pelvis and Hip - right AP and Lateral frogOrdered By: Cclloyd Provider on 07-25-2023 [facility] XR Pelvis and Hip - right AP and Lateral frogon 07-23-2023 Radiology Study observation (narrative) [facility] XR CHEST 2V FRONTAL/LATon [facility] XR Chest PA and Lateralon IMPRESSION: Question of some mild bilateral perihilar infiltrate. Pipe Caulker: BERNIE Transcribe Date/Time: Jun 09 2023 12:07P Dictated by : MAN ROSADO DO This examination was interpreted and the report reviewed and electronically signed by: MAN ROSADO DO on Jun 09 2023 12:08PM [facility] DIVISION OF RADIOLOGY * * *Final [...] soft tissues: Unremarkable. DIVISION OF RADIOLOGY Provider, Dara garcia Conrad - 06/09/2023 * * *Final Report* * [...] Question of some mild bilateral perihilar infiltrate. Pipe Caulker: BERNIE Transcribe Date/Time: Jun 09 2023 12:07P Dictated by : MAN ROSADO DO This examination was interpreted and the report reviewed and electronically signed by: MAN ROSADO DO on Jun 09 2023 12:08PM EST [facility] Radiology Study observation (narrative) [facility] XR Chest PA and LateralOrder ed By: Ccf Provider on 06-09-2023 [facility] Absolute lymphocyte countOrd ered By: Mani Esquivel on 03-31-2023 Lymphocytes Auto (Unsp spec) [#/Vol] 1.83 10*3/uL 0.83-4.51 [facility] Basophil percentageOrdered B y: Mani Esquivel on 03-31-2023 Basophils/100 WBC (Bld) 0.5 % 0-1 [facility] Bilirubin [Mass/Vol] 0.30 mg/dL 0.20-1.00 [facility] Comment on above: For patients on eltr ombopag therapy, use of Dimension [place] TBIL is not recommended. Chloride [Moles/Vol] 103 mmol/L 98-107 [facility] Eosinophils/100 WBC (Bld) 3.4 % 0-5 [facility] Glucose [Mass/Vol] 81 mg/dL 74-106 [facility] Neutrophils (Bld) [#/Vol] 8.5 10*3/uL 2.0-7.7 [facility] Neutrophils/100 WBC (Bld) 68.4 % 47-70 [facility] Potassium [Moles/Vol] 4.6 mmol/L 3.5-5.1 [facility] Comment on above: Moderate Hemolysis, Result may be falsely increased. Protein [Mass/Vol] 7.2 g/dL 6.4-8.2 [facility] Sodium [Moles/Vol] 135 mmol/L 136-145 [facility] WBC (Bld) [#/Vol] 12.4 10*3/uL 4.4-11.0 [facility] [place] Blood erythrocytes count (nu mber/volume)Ordered By: Mani Esquivel on 03-31-2023 RBC (Bld) [#/Vol] 4.74 10*6/uL 4.6-6.2 [facility] [place] Blood hemoglobin measurement (mass/volume)Ordered By: Mani Esquivel on 03-31-2023 Hemoglobin (Bld) [Mass/Vol] 13.6 g/dL 13.0-16. 5 [facility] Blood lymphocytes/100 leukoc ytesOrdered By: Mani Esquivel on 03-31-2023 Lymphocytes/100 WBC (Bld) 14.8 % 19-41 [facility] Blood manual differential co mment interpretation (narrative result)Ordered By: Mani Esquivel on 03-31-2023 Manual differential comment Rey (Bld) [Interp] SCANNED [facility] Comment on above: MONOCYTOSIS Blood monocytes/100 leukocyt esOrdered By: Mani Esquivel on 03-31-2023 Monocytes/100 WBC (Bld) 12.5 % 0-10 [facility] Blood platelet mean volumeOr dered By: Mani Esquivel on 03-31-2023 Platelet mean volume (Bld) [Entitic vol] 11.0 fL 6.2-12.0 [facility] Determination of erythrocyte mean corpuscular volume (MCV)Ordered By: Mani Esquivel on 03-31-2023 MCV (RBC) [Entitic vol] 88.2 fL 80-94 [facility] Direct bilirubinOrdered By: Mani Esquivel on 03-31-2023 Bilirubin.direct [Mass/Vol] 0.07 mg/dL 0.00-0.3 0 [facility] Hematocrit Auto (Bld) [Volum e fraction]Ordered By: Mani Esquivel on 03-31-2023 Hematocrit (Bld) [Volume fraction] 41.8 % 40-54 [facility] Laboratory - Chemistry and C hemistry - challengeOrdered By: Mani Esquivel on 03-31-2023 ALP [Catalytic activity/Vol] 72 U/L 45-117 [facility] ALT [Catalytic activity/Vol] 32 U/L 16-61 [facility] CO2 [Moles/Vol] 25.0 mmol/L 21.0-32.0 [facility] Globulin (S) [Mass/Vol] 3.8 g/dL 2.2-4.2 [facility] Lipase [Catalytic activity/Vol] 433 U/L 13-75 [facility] Comment on above: Please note:LIPASE r evised reference range effective 22. New Lipase methodology. Expected to produce lower values than the previous assay method. NEW Reference Range: 13 - 75 U/L Urea nitrogen/Creatinine [Mass ratio] 14.8 mg/mg 10-20 [facility] Laboratory - Hematology and Cell countsOrdered By: Mani Esquivel on 03-31-2023 Erythrocyte distribution width (RBC) [Entitic vol] 42.4 fL 35.1-43.9 [facility] Erythrocyte distribution width (RBC) [Ratio] 13.1 % 11.6-14.6 [facility] Immature granulocytes/100 WBC (Bld) 0.400 % 0.0-0.9 [facility] Comment on above: IG% - Immature Granu locytes (promyelocytes, myelocytes and metamyelocytes) > 1% indicates that a LEFT SHIFT is Present. MCH (RBC) [Entitic mass] 28.7 pg 27.0-32.0 [facility] Nucleated RBC/100 WBC (Bld) [Ratio] 0 % 0-5 [facility] MCHC Auto (RBC) [Mass/Vol]Or dered By: Mani Esquivel on 03-31-2023 MCHC (RBC) [Mass/Vol] 32.5 g/dL 32-36 [facility] No Panel InformationOrdered By: Mani Esquivel on 03-31-2023 Estimated GFR (MDRD) Amer 51 mL/min >60 [facility] Comment on above: GFR Calc Estimated GFR (MDRD) Non-Af Amer 42 mL/min >60 [facility] Comment on above: Non- GFR Calc Platelets bldOrdered By: Rashel Esquivel on 03-31-2023 Platelets (Bld) [#/Vol] 249 10*3/uL 150-450 [facility] Review by pathologistOrdered By: Mani Esquivel on 03-31-2023 Pathologist review Rey (Unsp spec) [Interp] Tamara bernard [facility] Pathologist review Rey (Unsp spec) [Interp] Reviewed [facility] Comment on above: Previous reported re sult: Tamara bernard Edited by: DEEPTHI on 04/03/23:1218Leukocytosis.Clinical correlation necessary.Callum Arteaga M.D. 04/03/23 AMENDED REPORT 04/03/23 1218 PATH REV previously reported as: Tamara bernard Serum or plasma albumin nahomy urement (mass/volume)Ordered By: Mani Esquivel on 03-31-2023 Albumin [Mass/Vol] 3.4 g/dL 3.2-5.0 [facility] Serum or plasma calcium nahomy urement (mass/volume)Ordered By: Mani Esquivel on 03-31-2023 Calcium [Mass/Vol] 8.7 mg/dL 8.5-10.1 [facility] Serum or plasma creatinine m easurement (mass/volume)Ordered By: Mani Esquivel on 03-31-2023 Creatinine [Mass/Vol] 1.69 mg/dL 0.70-1.30 [facility] Comment on above: The validity of the calculated GFR & GFRAA in patients over 70 years has not been determined. Clinical correlation is essential. Serum or plasma urea nitroge n measurement (mass/volume)Ordered By: Mani Esquivel on 03-31-2023 Urea nitrogen [Mass/Vol] 25 mg/dL -18 [facility] Thin prep Papanicolaou smear with manual screeningOrdered By: Mani Esquivel on 03-31-2023 Thin prep Papanicolaou smear with manual screening 27 U/L 15- [facility] Comment on above: Moderate Hemolysis, Result may be falsely increased. Thin prep Papanicolaou smear with manual screening 7 -15 [facility] CBC W Auto Differential pane l (Bld)on 03-02-2023 Basophils (Bld) [#/Vol] 0.06 10*3/uL <0.11 k/uL [facility] Basophils/100 WBC (Bld) 0.5 % [facility] Differential cell count method Nom (Bld) Auto [facility] Eosinophils (Bld) [#/Vol] 0.44 10*3/uL <0.46 k/ uL [facility] Eosinophils/100 WBC (Bld) 4.0 % [facility] Erythrocyte distribution width (RBC) [Ratio] 13.3 % 11.5 - 15.0 % [facility] Hematocrit (Bld) [Volume fraction] 44.9 % 39.0 - 51.0 % [facility] Hemoglobin (Bld) [Mass/Vol] 14.4 g/dL 13.0 - 17.0 g/dL [facility] Immature granulocytes (Bld) [#/Vol] 0.04 10*3/uL <0.10 k/uL [facility] Immature granulocytes/100 WBC (Bld) 0.4 % [facility] Lymphocytes (Bld) [#/Vol] 2.03 10*3/uL 1. 00 - 4.00 k/uL [facility] Lymphocytes/100 WBC (Bld) 18.5 % [facility] MCH (RBC) [Entitic mass] 28.7 pg 26. 0 - 34.0 pg [facility] MCHC (RBC) [Mass/Vol] 32.1 g/dL 30.5 - 36.0 g/dL [facility] MCV (RBC) [Entitic vol] 89.4 fL 80.0 - 100.0 fL [facility] Monocytes (Bld) [#/Vol] 1.22 10*3/uL High <0.87 k/uL [facility] Monocytes/100 WBC (Bld) 11.1 % [facility] Neutrophils (Bld) [#/Vol] 7.19 10*3/uL 1. 45 - 7.50 k/uL [facility] Neutrophils/100 WBC (Bld) 65.5 % [facility] Nucleated RBC (Bld) [#/Vol] <0.01 k/ uL [facility] Nucleated RBC/100 WBC (Bld) [Ratio] 0.0 /100 WBC [facility] Platelet mean volume (Bld) [Entitic vol] 11.5 fL 9.0 - 12.7 fL [facility] Platelets (Bld) [#/Vol] 259 10*3/uL 150 - 400 k/uL [facility] RBC (Bld) [#/Vol] 5.02 10*6/uL 4.20 - 6.0 0 m/uL [facility] WBC (Bld) [#/Vol] 10.98 10*3/uL 3.70 - 11.00 k/uL [facility] Absolute lymphocyte countOrd ered By: Dr. Taylor on 03-01-2023 Lymphocytes Auto (Unsp spec) [#/Vol] 2.50 10*3/uL 0.83-4.51 [facility] Basophil percentageOrdered B y: Dr. Taylor on 03-01-2023 Basophils/100 WBC (Bld) 0.5 % 0-1 [facility] Bilirubin [Mass/Vol] 0.30 mg/dL 0.20-1.00 [facility] Comment on above: For patients on eltr ombopag therapy, use of Dimension Orient TBIL is not recommended. Chloride [Moles/Vol] 101 mmol/L 98-107 [facility] Eosinophils/100 WBC (Bld) 3.2 % 0-5 [facility] Glucose [Mass/Vol] 132 mg/dL 74-106 [facility] Comment on above: Fasting Glucose resu lt greater than or equal to 126 mg/dL suggests DIABETES MELLITUS per A.D.A. criteria. Neutrophils (Bld) [#/Vol] 7.2 10*3/uL 2.0-7.7 [facility] Neutrophils/100 WBC (Bld) 62.9 % 47-70 [facility] Potassium [Moles/Vol] 3.8 mmol/L 3.5-5.1 [facility] Protein [Mass/Vol] 7.1 g/dL 6.4-8.2 [facility] Sodium [Moles/Vol] 133 mmol/L 136-145 [facility] WBC (Bld) [#/Vol] 11.4 10*3/uL 4.4-11.0 [facility] [place] Basophil percentage 0-5 SEEN /hpf 0-5 [facility] Bilirubin Test strip Ql (U)O rdered By: Dr. Taylor on 03-01-2023 Bilirubin Ql (U) Negative Negative [facility] Blood erythrocytes count (nu mber/volume)Ordered By: Dr. Taylor on 03-01-2023 RBC (Bld) [#/Vol] 4.89 10*6/uL 4.6-6.2 [facility] [place] Blood hemoglobin measurement (mass/volume)Ordered By: Dr. Taylor on 03-01-2023 Hemoglobin (Bld) [Mass/Vol] 14.0 g/dL 13.0-16. 5 [facility] Blood lymphocytes/100 leukoc ytesOrdered By: Dr. Taylor on 03-01-2023 Lymphocytes/100 WBC (Bld) 21.9 % 19-41 [facility] Blood monocytes/100 leukocyt esOrdered By: Dr. Taylor on 03-01-2023 Monocytes/100 WBC (Bld) 11.2 % 0-10 [facility] Blood platelet mean volumeOr dered By: Dr. Taylor on 03-01-2023 Platelet mean volume (Bld) [Entitic vol] 10.9 fL 6.2-12.0 [facility] Determination of erythrocyte mean corpuscular volume (MCV)Ordered By: Dr. Taylor on 03-01-2023 MCV (RBC) [Entitic vol] 86.1 fL 80-94 [facility] Hematocrit Auto (Bld) [Volum e fraction]Ordered By: Dr. Taylor on 03-01-2023 Hematocrit (Bld) [Volume fraction] 42.1 % 40-54 [facility] Hyaline casts LM.LPF (Urine sed) [#/Area]Ordered By: Dr. Taylor on 03-01-2023 Hyaline casts (Urine sed) [#/Area] 0 /[LPF] 0-5 [facility] Ketones Test strip Ql (U)Ord ered By: Dr. Taylor on 03-01-2023 Ketones Ql (U) 5 mg/dl Negative [facility] Laboratory - Chemistry and C hemistry - challengeOrdered By: Dr. Taylor on 03-01-2023 ALP [Catalytic activity/Vol] 73 U/L 45-117 [facility] ALT [Catalytic activity/Vol] 33 U/L 16-61 [facility] CO2 [Moles/Vol] 24.0 mmol/L 21.0-32.0 [facility] Globulin (S) [Mass/Vol] 3.6 g/dL 2.2-4.2 [facility] Lipase [Catalytic activity/Vol] 82 U/L 13-75 [facility] Comment on above: Please note:LIPASE r evised reference range effective 22. New Lipase methodology. Expected to produce lower values than the previous assay method. NEW Reference Range: 13 - 75 U/L Urea nitrogen/Creatinine [Mass ratio] 24.8 mg/mg 10-20 [facility] Laboratory - Hematology and Cell countsOrdered By: Dr. Taylor on 03-01-2023 Erythrocyte distribution width (RBC) [Entitic vol] 41.3 fL 35.1-43.9 [facility] Erythrocyte distribution width (RBC) [Ratio] 13.2 % 11.6-14.6 [facility] Immature granulocytes/100 WBC (Bld) 0.300 % 0.0-0.9 [facility] Comment on above: IG% - Immature Granu locytes (promyelocytes, myelocytes and metamyelocytes) > 1% indicates that a LEFT SHIFT is Present. MCH (RBC) [Entitic mass] 28.6 pg 27.0-32.0 [facility] Nucleated RBC/100 WBC (Bld) [Ratio] 0 % 0-5 [facility] MCHC Auto (RBC) [Mass/Vol]Or dered By: Dr. Taylor on 03-01-2023 MCHC (RBC) [Mass/Vol] 33.3 g/dL 32-36 [facility] Mucus LM Ql (Urine sed)Order ed By: Dr. Taylor on 03-01-2023 Mucus Ql (Urine sed) 0 SEEN /hpf [facility] Nitrite Test strip Ql (U)Ord ered By: Dr. Taylor on 03-01-2023 Nitrite Ql (U) Negative Negative [facility] No Panel InformationOrdered By: Dr. Taylor on 03-01-2023 Estimated Creatinine Clearance Calc 48.80 ml/min [facility] Estimated GFR (MDRD) Amer 62 mL/min >60 [facility] Comment on above: GFR Calc Estimated GFR (MDRD) Non-Af Amer 52 mL/min >60 [facility] Comment on above: Non- GFR Calc Troponin I High Sensitivity 7 pg/mL 3.0-78.0 [facility] Comment on above: Please Note: New Carmen t Units and Gender Specific Reference Ranges. For more information see Policy Stat Procedure Orient High Sensitivity Troponin (TNIH) and attachments. Platelets bldOrdered By: Dr. Taylor on 03-01-2023 Platelets (Bld) [#/Vol] 266 10*3/uL 150-450 [facility] Protein Test strip Ql (U)Ord ered By: Dr. Taylor on 03-01-2023 Protein Ql (U) 15 mg/dl Negative [facility] Serum or plasma albumin nahomy urement (mass/volume)Ordered By: Dr. Taylor on 03-01-2023 Albumin [Mass/Vol] 3.5 g/dL 3.2-5.0 [facility] Serum or plasma albumin/glob ulin mass ratioOrdered By: Dr. Taylor on 03-01-2023 Albumin/Globulin [Mass ratio] 1.0 {ratio} 0.9-2.4 [facility] Serum or plasma calcium nahomy urement (mass/volume)Ordered By: Dr. Taylor on 03-01-2023 Calcium [Mass/Vol] 9.1 mg/dL 8.5-10.1 [facility] Serum or plasma creatinine m easurement (mass/volume)Ordered By: Dr. Taylor on 03-01-2023 Creatinine [Mass/Vol] 1.41 mg/dL 0.70-1.30 [facility] Comment on above: The validity of the calculated GFR & GFRAA in patients over 70 years has not been determined. Clinical correlation is essential. Serum or plasma urea nitroge n measurement (mass/volume)Ordered By: Dr. Taylor on 03-01-2023 Urea nitrogen [Mass/Vol] 35 mg/dL 7-18 [facility] Squamous epithelial cells de tection in urine sediment by light microscopyOrdered By: Dr. Taylor on 03-01-2023 Epithelial cells.squamous LM Ql (Urine sed) 0-5 SEEN /hpf 0-5 [facility] Thin prep Papanicolaou smear with manual screeningOrdered By: Dr. Taylor on 03-01-2023 Thin prep Papanicolaou smear with manual screening 16 U/L 15-37 [facility] Thin prep Papanicolaou smear with manual screening 8 5-15 [facility] Urine blood detectionOrdered By: Dr. Taylor on 03-01-2023 RBC Ql (U) 50 /ul Negative [facility] RBC Ql (U) 0-5 SEEN /hpf 0-5 [facility] Urine clarityOrdered By: Dr. Taylor on 03-01-2023 Clarity (U) Clear Clear [facility] Urine color determinationOrd ered By: Dr. Taylor on 03-01-2023 Color (U) Yellow Yellow [facility] Urine glucose detectionOrder ed By: Dr. Taylor on 03-01-2023 Glucose Ql (U) 250 mg/dl Normal [facility] Urine leukocyte esterase det ection by dipstickOrdered By: Dr. Taylor on 03-01-2023 Leukocyte esterase Test strip Ql (U) Negative Negative [facility] Urine pHOrdered By: Dr. Katlyn burns on 03-01-2023 pH (U) 5.0 [pH] 5.0 - 8.0 [facility] Urine sediment bacteria coun t by microscopy (number/high power field)Ordered By: Dr. Taylor on 03-01-2023 Bacteria LM.HPF (Urine sed) [#/Area] 0 /[HPF] None Seen [facility] Urine specific gravity measu rementOrdered By: Dr. Taylor on 03-01-2023 Specific gravity (U) [Rel density] 1.025 1.002-1.030 [facility] Urobilinogen Auto test strip Ql (U)Ordered By: Dr. Taylor on 03-01-2023 Urobilinogen Ql (U) Normal mg/dl Normal [facility] Glucose Glucometer (BldC) [M ass/Vol]Ordered By: Mani Esquivel on 02-25-2023 Glucose [Mass/Vol] 132 mg/dL 74-106 [facility] Comment on above: MANAGEMENT OF PATIEN T CARE PER NURSING PROTOCOL Absolute lymphocyte countOrd ered By: Mani Esquivel on 02-24-2023 Lymphocytes Auto (Unsp spec) [#/Vol] 1.89 10*3/uL 0.83-4.51 [facility] Basophil percentageOrdered B y: Mani Esquivel on 02-24-2023 Basophils/100 WBC (Bld) 0.4 % 0-1 [facility] Bilirubin [Mass/Vol] 0.20 mg/dL 0.20-1.00 [facility] Comment on above: For patients on eltr ombopag therapy, use of Dimension Orient TBIL is not recommended. Chloride [Moles/Vol] 106 mmol/L 98-107 [facility] Eosinophils/100 WBC (Bld) 4.3 % 0-5 [facility] Glucose [Mass/Vol] 66 mg/dL 74-106 [facility] Neutrophils (Bld) [#/Vol] 6.7 10*3/uL 2.0-7.7 [facility] Neutrophils/100 WBC (Bld) 65.7 % 47-70 [facility] Potassium [Moles/Vol] 3.9 mmol/L 3.5-5.1 [facility] Protein [Mass/Vol] 6.9 g/dL 6.4-8.2 [facility] Sodium [Moles/Vol] 138 mmol/L 136-145 [facility] WBC (Bld) [#/Vol] 10.2 10*3/uL 4.4-11.0 [facility] [place] Blood erythrocytes count (nu mber/volume)Ordered By: Mani Esquivel on 02-24-2023 RBC (Bld) [#/Vol] 4.82 10*6/uL 4.6-6.2 [facility] [place] Blood hemoglobin measurement (mass/volume)Ordered By: Mani Esquivel on 02-24-2023 Hemoglobin (Bld) [Mass/Vol] 13.9 g/dL 13.0-16. 5 [facility] Blood lymphocytes/100 leukoc ytesOrdered By: Mani Esquivel on 02-24-2023 Lymphocytes/100 WBC (Bld) 18.5 % 19-41 [facility] Blood monocytes/100 leukocyt esOrdered By: Mani Esquivel on 02-24-2023 Monocytes/100 WBC (Bld) 10.7 % 0-10 [facility] Blood platelet mean volumeOr dered By: Mani Esquivel on 02-24-2023 Platelet mean volume (Bld) [Entitic vol] 10.7 fL 6.2-12.0 [facility] Determination of erythrocyte mean corpuscular volume (MCV)Ordered By: Mani Esquivel on 02-24-2023 MCV (RBC) [Entitic vol] 86.9 fL 80-94 [facility] Direct bilirubinOrdered By: Mani Esquivel on 02-24-2023 Bilirubin.direct [Mass/Vol] 0.10 mg/dL 0.00-0.3 0 [facility] Hematocrit Auto (Bld) [Volum e fraction]Ordered By: Mani Esquivel on 02-24-2023 Hematocrit (Bld) [Volume fraction] 41.9 % 40-54 [facility] Laboratory - Chemistry and C hemistry - challengeOrdered By: Mani Esquivel on 02-24-2023 ALP [Catalytic activity/Vol] 61 U/L 45-117 [facility] ALT [Catalytic activity/Vol] 33 U/L 16-61 [facility] CO2 [Moles/Vol] 24.0 mmol/L 21.0-32.0 [facility] Globulin (S) [Mass/Vol] 3.6 g/dL 2.2-4.2 [facility] Lipase [Catalytic activity/Vol] 96 U/L 13-75 [facility] Comment on above: Please note:LIPASE r evised reference range effective 22. New Lipase methodology. Expected to produce lower values than the previous assay method. NEW Reference Range: 13 - 75 U/L Urea nitrogen/Creatinine [Mass ratio] 20.0 mg/mg 10-20 [facility] Laboratory - Hematology and Cell countsOrdered By: Mani Esquivel on 02-24-2023 Erythrocyte distribution width (RBC) [Entitic vol] 42.4 fL 35.1-43.9 [facility] Erythrocyte distribution width (RBC) [Ratio] 13.4 % 11.6-14.6 [facility] Immature granulocytes/100 WBC (Bld) 0.400 % 0.0-0.9 [facility] Comment on above: IG% - Immature Granu locytes (promyelocytes, myelocytes and metamyelocytes) > 1% indicates that a LEFT SHIFT is Present. MCH (RBC) [Entitic mass] 28.8 pg 27.0-32.0 [facility] Nucleated RBC/100 WBC (Bld) [Ratio] 0 % 0-5 [facility] MCHC Auto (RBC) [Mass/Vol]Or dered By: Mani Esquivel on 02-24-2023 MCHC (RBC) [Mass/Vol] 33.2 g/dL 32-36 [facility] No Panel InformationOrdered By: Mani Esquivel on 02-24-2023 Estimated Creatinine Clearance Calc 68.80 ml/min [facility] Estimated GFR (MDRD) Amer 93 mL/min >60 [facility] Comment on above: GFR Calc Estimated GFR (MDRD) Non-Af Amer 77 mL/min >60 [facility] Comment on above: Non- GFR Calc Troponin I High Sensitivity 7 pg/mL 3.0-78.0 [facility] Comment on above: Please Note: New Carmen t Units and Gender Specific Reference Ranges. For more information see Policy Stat Procedure [place] High Sensitivity Troponin (TNIH) and attachments. Platelets bldOrdered By: Rashel Esquivel on 02-24-2023 Platelets (Bld) [#/Vol] 234 10*3/uL 150-450 [facility] Serum or plasma albumin nahomy urement (mass/volume)Ordered By: Mani Esquivel on 02-24-2023 Albumin [Mass/Vol] 3.3 g/dL 3.2-5.0 [facility] Serum or plasma calcium nahomy urement (mass/volume)Ordered By: Mani Esquivel on 02-24-2023 Calcium [Mass/Vol] 8.9 mg/dL 8.5-10.1 [facility] Serum or plasma creatinine m easurement (mass/volume)Ordered By: Mani Esquivel on 02-24-2023 Creatinine [Mass/Vol] 1.00 mg/dL 0.70-1.30 [facility] Comment on above: The validity of the calculated GFR & GFRAA in patients over 70 years has not been determined. Clinical correlation is essential. Serum or plasma urea nitroge n measurement (mass/volume)Ordered By: Mani Esquivel on 02-24-2023 Urea nitrogen [Mass/Vol] 20 mg/dL 7-18 [facility] Thin prep Papanicolaou smear with manual screeningOrdered By: Mani Esquivel on 02-24-2023 Thin prep Papanicolaou smear with manual screening 21 U/L 15-37 [facility] Thin prep Papanicolaou smear with manual screening 8 5-15 [facility] XR ANKLE GENERAL 3V AP/LAT/O BL LEFTon 02-16-2023 [facility] XR Ankle - left AP and Later al and obliqueon 02-16-2023 IMPRESSION: Degenerative changes in the left ankle with mild soft tissue swelling. No acute fracture seen. Patient can be reevaluated in 10-14 days if symptoms persist. Pipe Caulker: BERNIE Transcribe Date/Time: Feb 16 2023 3:38P Dictated by : XOCHITL SHIPMAN MD This examination was interpreted and the report reviewed and electronically signed by: XOCHITL SHIPMAN MD on Feb 16 2023 3:40PM [facility] DIVISION OF RADIOLOGY * * *Final [...] the lateral malleolus. DIVISION OF RADIOLOGY Provider, Dara Barahona - 02/16/2023 * * *Final Report* * [...] reevaluated in 10-14 days if symptoms persist. Pipe Caulker: PSCB Transcribe Date/Time: Feb 16 2023 3:38P Dictated by : XOCHITL SHIPMAN MD This examination was interpreted and the report reviewed and electronically signed by: XOCHITL SHIPMAN MD on Feb 16 2023 3:40PM EST [facility] Radiology Study observation (narrative) [facility] XR Ankle - left AP and Later al and obliqueOrdered By: [facility] Provider on 02-16-2023 [facility] Absolute lymphocyte countOrd ered By: Dr. Taylor on 11-21-2022 Lymphocytes Auto (Unsp spec) [#/Vol] 2.17 10*3/uL 0.83-4.51 [facility] Basophil percentageOrdered B y: Dr. Taylor on 11-21-2022 Basophils/100 WBC (Bld) 0.5 % 0-1 [facility] Chloride [Moles/Vol] 102 mmol/L 98-107 [facility] Eosinophils/100 WBC (Bld) 3.3 % 0-5 [facility] Glucose [Mass/Vol] 153 mg/dL 74-106 [facility] Comment on above: Fasting Glucose resu lt greater than or equal to 126 mg/dL suggests DIABETES MELLITUS per A.D.A. criteria. Neutrophils (Bld) [#/Vol] 7.9 10*3/uL 2.0-7.7 [facility] Neutrophils/100 WBC (Bld) 65.5 % 47-70 [facility] Potassium [Moles/Vol] 3.9 mmol/L 3.5-5.1 [facility] Sodium [Moles/Vol] 134 mmol/L 136-145 [facility] WBC (Bld) [#/Vol] 12.1 10*3/uL 4.4-11.0 [facility] [place] Blood erythrocytes count (nu mber/volume)Ordered By: Dr. Taylor on 11-21-2022 RBC (Bld) [#/Vol] 5.03 10*6/uL 4.6-6.2 [facility] [place] Blood hemoglobin measurement (mass/volume)Ordered By: Dr. Taylor on 11-21-2022 Hemoglobin (Bld) [Mass/Vol] 14.7 g/dL 13.0-16. 5 [facility] Blood lymphocytes/100 leukoc ytesOrdered By: Dr. Taylor on 11-21-2022 Lymphocytes/100 WBC (Bld) 17.9 % 19-41 [facility] Blood monocytes/100 leukocyt esOrdered By: Dr. Taylor on 11-21-2022 Monocytes/100 WBC (Bld) 12.4 % 0-10 [facility] Blood platelet mean volumeOr dered By: Dr. Taylor on 11-21-2022 Platelet mean volume (Bld) [Entitic vol] 11.2 fL 6.2-12.0 [facility] Determination of erythrocyte mean corpuscular volume (MCV)Ordered By: Dr. Taylor on 11-21-2022 MCV (RBC) [Entitic vol] 85.5 fL 80-94 [facility] Glucose Glucometer (BldC) [M ass/Vol]Ordered By: Dr. Kebede on 11-21-2022 Glucose [Mass/Vol] 160 mg/dL 74-106 [facility] Comment on above: MANAGEMENT OF PATIEN T CARE PER NURSING PROTOCOL Hematocrit Auto (Bld) [Volum e fraction]Ordered By: Dr. Taylor on 11-21-2022 Hematocrit (Bld) [Volume fraction] 43.0 % 40-54 [facility] Laboratory - Chemistry and C hemistry - challengeOrdered By: Dr. Stevenson on 11-21-2022 Magnesium [Mass/Vol] 2.0 mg/dL 1.6-2.6 [facility] Laboratory - Chemistry and C hemistry - challengeOrdered By: Dr. Taylor on 11-21-2022 CO2 [Moles/Vol] 24.0 mmol/L 21.0-32.0 [facility] Urea nitrogen/Creatinine [Mass ratio] 20.5 mg/mg 10-20 [facility] Laboratory - Hematology and Cell countsOrdered By: Dr. Taylor on 11-21-2022 Erythrocyte distribution width (RBC) [Entitic vol] 41.1 fL 35.1-43.9 [facility] Erythrocyte distribution width (RBC) [Ratio] 13.2 % 11.6-14.6 [facility] Immature granulocytes/100 WBC (Bld) 0.400 % 0.0-0.9 [facility] Comment on above: IG% - Immature Granu locytes (promyelocytes, myelocytes and metamyelocytes) > 1% indicates that a LEFT SHIFT is Present. MCH (RBC) [Entitic mass] 29.2 pg 27.0-32.0 [facility] Nucleated RBC/100 WBC (Bld) [Ratio] 0 % 0-5 [facility] MCHC Auto (RBC) [Mass/Vol]Or dered By: Dr. Taylor on 11-21-2022 MCHC (RBC) [Mass/Vol] 34.2 g/dL 32-36 [facility] No Panel InformationOrdered By: Dr. Kebede on 11-21-2022 Troponin I High Sensitivity 8 pg/mL 3.0-78.0 [facility] Comment on above: Please Note: New Carmen t Units and Gender Specific Reference Ranges. For more information see Policy Stat Procedure Orient High Sensitivity Troponin (TNIH) and attachments. No Panel InformationOrdered By: Dr. Taylor on 11-21-2022 Estimated Creatinine Clearance Calc 56.40 ml/min [facility] Estimated GFR (MDRD) Amer 74 mL/min >60 [facility] Comment on above: GFR Calc Estimated GFR (MDRD) Non-Af Amer 61 mL/min >60 [facility] Comment on above: Non- GFR Calc Troponin I High Sensitivity 8 pg/mL 3.0-78.0 [facility] Comment on above: Please Note: New Carmen t Units and Gender Specific Reference Ranges. For more information see Policy Stat Procedure Orient High Sensitivity Troponin (TNIH) and attachments. Platelets bldOrdered By: Dr. Taylor on 11-21-2022 Platelets (Bld) [#/Vol] 249 10*3/uL 150-450 [facility] Serum or plasma calcium nahomy urement (mass/volume)Ordered By: Dr. Taylor on 11-21-2022 Calcium [Mass/Vol] 9.0 mg/dL 8.5-10.1 [facility] Serum or plasma creatinine m easurement (mass/volume)Ordered By: Dr. Taylor on 11-21-2022 Creatinine [Mass/Vol] 1.22 mg/dL 0.70-1.30 [facility] Comment on above: The validity of the calculated GFR & GFRAA in patients over 70 years has not been determined. Clinical correlation is essential. Serum or plasma urea nitroge n measurement (mass/volume)Ordered By: Dr. Taylor on 11-21-2022 Urea nitrogen [Mass/Vol] 25 mg/dL 7-18 [facility] Thin prep Papanicolaou smear with manual screeningOrdered By: Dr. Taylor on 11-21-2022 Thin prep Papanicolaou smear with manual screening 8 5-15 [facility] Absolute lymphocyte counton 04-08-2022 Lymphocytes Auto (Unsp spec) [#/Vol] 1.70 10*3/uL 0.83-4.51 [facility] Work Phone: Basophil percentageon 2021 Basophils/100 WBC (Bld) 0.4 % 0-1 [facility] Work Phone: Chloride [Moles/Vol] 103 mmol/L 98-107 [facility] Work Phone: Eosinophils/100 WBC (Bld) 3.1 % 0-5 [facility] Work Phone: Glucose [Mass/Vol] 138 mg/dL 74-106 [facility] Work Phone: Comment on above: Fasting Glucose resu lt greater than or equal to 126 mg/dL suggests DIABETES MELLITUS per A.D.A. criteria. Neutrophils (Bld) [#/Vol] 7.1 10*3/uL 2.0-7.7 [facility] Work Phone: Neutrophils/100 WBC (Bld) 68.6 % 47-70 [facility] Work Phone: Potassium [Moles/Vol] 4.6 mmol/L 3.5-5.1 [facility] Work Phone: Comment on above: Slight Hemolysis, Re sult may be falsely increased. Sodium [Moles/Vol] 137 mmol/L 136-145 [facility] Work Phone: WBC (Bld) [#/Vol] 10.4 10*3/uL 4.4-11.0 [facility] [place] Work Phone: Blood erythrocytes count (nu mber/volume)on 04-08-2022 RBC (Bld) [#/Vol] 5.10 10*6/uL 4.6-6.2 [facility] [place] Work Phone: [phone] Blood hemoglobin measurement (mass/volume)on 04-08-2022 Hemoglobin (Bld) [Mass/Vol] 14.0 g/dL 13.0-16. 5 [facility] Work Phone: Blood lymphocytes/100 leukoc yteson 04-08-2022 Lymphocytes/100 WBC (Bld) 16.4 % 19-41 [facility] Work Phone: Blood monocytes/100 leukocyt eson 04-08-2022 Monocytes/100 WBC (Bld) 11.1 % 0-10 [facility] Work Phone: Blood platelet mean volumeon 04-08-2022 Platelet mean volume (Bld) [Entitic vol] 11.5 fL 6.2-12.0 [facility] Work Phone: [phone] Determination of erythrocyte mean corpuscular volume (MCV)on 04-08-2022 MCV (RBC) [Entitic vol] 85.1 fL 80-94 [facility] Work Phone: Hematocrit Auto (Bld) [Volum e fraction]on 04-08-2022 Hematocrit (Bld) [Volume fraction] 43.4 % 40-54 [facility] Work Phone: Laboratory - Chemistry and C hemistry - challengeon 04-08-2022 CO2 [Moles/Vol] 26.0 mmol/L 21.0-32.0 [facility] Work Phone: Urea nitrogen/Creatinine [Mass ratio] 17.2 mg/mg 10-20 [facility] Work Phone: Laboratory - Hematology and Cell countson 04-08-2022 Erythrocyte distribution width (RBC) [Entitic vol] 45.3 fL 35.1-43.9 [facility] Work Phone: Erythrocyte distribution width (RBC) [Ratio] 14.5 % 11.6-14.6 [facility] Work Phone: Immature granulocytes/100 WBC (Bld) 0.400 % 0.0-0.9 [facility] Work Phone: Comment on above: IG% - Immature Granu locytes (promyelocytes, myelocytes and metamyelocytes) > 1% indicates that a LEFT SHIFT is Present. MCH (RBC) [Entitic mass] 27.5 pg 27.0-32.0 [facility] Work Phone: Nucleated RBC/100 WBC (Bld) [Ratio] 0 % 0-5 [facility] Work Phone: MCHC Auto (RBC) [Mass/Vol]on 04-08-2022 MCHC (RBC) [Mass/Vol] 32.3 g/dL 32-36 [facility] Work Phone: No Panel Informationon 04-08 Troponin I High Sensitivity 9 pg/mL 3.0-78.0 [facility] Work Phone: Comment on above: Please Note: New Carmen t Units and Gender Specific Reference Ranges. For more information see Policy Stat Procedure Orient High Sensitivity Troponin (TNIH) and attachments. Estimated Creatinine Clearance Calc 59.31 ml/min [facility] Work Phone: Estimated GFR (MDRD) Amer 78 mL/min >60 [facility] Work Phone: Comment on above: GFR Calc Estimated GFR (MDRD) Non-Af Amer 65 mL/min >60 [facility] Work Phone: Comment on above: Non- GFR Calc Platelets bldon 04-08-2022 Platelets (Bld) [#/Vol] 247 10*3/uL 150-450 [facility] Work Phone: Serum or plasma calcium nahomy urement (mass/volume)on 04-08-2022 Calcium [Mass/Vol] 9.2 mg/dL 8.5-10.1 [facility] Work Phone: Serum or plasma creatinine m easurement (mass/volume)on 04-08-2022 Creatinine [Mass/Vol] 1.16 mg/dL 0.70-1.30 [facility] Work Phone: Comment on above: The validity of the calculated GFR & GFRAA in patients over 70 years has not been determined. Clinical correlation is essential. Serum or plasma urea nitroge n measurement (mass/volume)on 04-08-2022 Urea nitrogen [Mass/Vol] 20 mg/dL 7-18 [facility] Work Phone: Thin prep Papanicolaou smear with manual screeningon 04-08-2022 Thin prep Papanicolaou smear with manual screening 8 5-15 [facility] Work Phone: Basophil percentageon 2021 Chloride [Moles/Vol] 104 mmol/L 98-107 [facility] Work Phone: Glucose [Mass/Vol] 197 mg/dL 74-106 [facility] Work Phone: Comment on above: Fasting Glucose resu lt greater than or equal to 126 mg/dL suggests DIABETES MELLITUS per A.D.A. criteria. Potassium [Moles/Vol] 3.9 mmol/L 3.5-5.1 [facility] Work Phone: Sodium [Moles/Vol] 136 mmol/L 136-145 [facility] Work Phone: Laboratory - Chemistry and C hemistry - challengeon 02-07-2022 CO2 [Moles/Vol] 25.0 mmol/L 21.0-32.0 [facility] Work Phone: Urea nitrogen/Creatinine [Mass ratio] 16.8 mg/mg 10-20 [facility] Work Phone: No Panel Informationon 02-07 Estimated GFR (MDRD) Amer 86 mL/min >60 [facility] Work Phone: Comment on above: GFR Calc Estimated GFR (MDRD) Non-Af Amer 71 mL/min >60 [facility] Work Phone: Comment on above: Non- GFR Calc Serum or plasma calcium nahomy urement (mass/volume)on 02-07-2022 Calcium [Mass/Vol] 8.8 mg/dL 8.5-10.1 [facility] Work Phone: Serum or plasma creatinine m easurement (mass/volume)on 02-07-2022 Creatinine [Mass/Vol] 1.07 mg/dL 0.70-1.30 [facility] Work Phone: Comment on above: The validity of the calculated GFR & GFRAA in patients over 70 years has not been determined. Clinical correlation is essential. Serum or plasma urea nitroge n measurement (mass/volume)on 02-07-2022 Urea nitrogen [Mass/Vol] 18 mg/dL 7-18 [facility] Work Phone: Thin prep Papanicolaou smear with manual screeningon 02-07-2022 Thin prep Papanicolaou smear with manual screening 7 5-15 [facility] Work Phone: XR Chest PA and Lateralon IMPRESSION: No acute radiographic abnormality. Pipe Caulker: PSCB Transcribe Date/Time: Jul 13 2021 10:18A Dictated by : SILVIO WORTHY MD This examination was interpreted and the report reviewed and electronically signed by: SILVIO WORTHY MD on Jul 13 2021 10:19AM [facility] DIVISION OF RADIOLOGY * * *Final [...] in the spine. DIVISION OF RADIOLOGY Provider, [facility] - 07/13/2021 * * *Final Report* * [...] spine. IMPRESSION IMPRESSION: No acute radiographic abnormality. Pipe Caulker: BERNIE Transcribe Date/Time: Jul 13 2021 10:18A Dictated by : SILVIO WORTHY MD This examination was interpreted and the report reviewed and electronically signed by: SILVIO WORTHY MD on Jul 13 2021 10:19AM EST [facility] Radiology Study observation (narrative) [facility] XR Chest PA and LateralOrder ed By: [facility] Provider on 07-13-2021 [facility] XR Ribs - right Views and Ch est PAon 05-25-2021 IMPRESSION: No acute process is seen. Pipe Caulker: PSCB Transcribe Date/Time: May 25 2021 4:16P Dictated [...] spine appear stable. DIVISION OF RADIOLOGY Provider, [facility] - 05/25/2021 * * *Final Report* * [...] IMPRESSION IMPRESSION: No acute process is seen. Pipe Caulker: PSCB Transcribe Date/Time: May 25 2021 4:16P Dictated by : SHAR ESTEBAN MD This examination was interpreted and the report reviewed and electronically signed by: SHAR ESTEBAN MD on May 25 2021 4:18PM EST [facility] Radiology Study observation (narrative) [facility] XR Ribs - right Views and Ch est PAOrdered By: [facility] Provider on 05-25-2021 [facility] XR Chest PA and Lateralon IMPRESSION: No acute radiographic abnormality is evident. Pipe Caulker: BERNIE Transcribe Date/Time: Jan 24 2021 2:44P Dictated by : ALY SABA MD This examination was interpreted and the report reviewed and electronically signed by: ALY SABA MD on Jan 24 2021 2:47PM [facility] DIVISION OF RADIOLOGY * * *Final [...] the thoracic spine. DIVISION OF RADIOLOGY Provider, [facility] - 01/24/2021 * * *Final Report* * [...] IMPRESSION: No acute radiographic abnormality is evident. Pipe Caulker: BERNIE Transcribe Date/Time: Jan 24 2021 2:44P Dictated by : ALY SABA MD This examination was interpreted and the report reviewed and electronically signed by: ALY SABA MD on Jan 24 2021 2:47PM EST [facility] Radiology Study observation (narrative) [facility] XR Chest PA and LateralOrder ed By: [facility] Provider on 01-24-2021 [facility] Vital Signs Date Time Vital Sign Value Performing Clinician Facility 05-04-2025 10:46-0400 Diastolic blood pressure 62 mm[Hg] Dr. Mathieu Virgen MD Work Phone: 9(177)136-460537 [place] [address] 05-04-2025 10:46-0400 Systolic blood pressure 106 mm[Hg] Dr. Mathieu Virgen MD Work Phone: 8(344)429-464837 [place] [address] 05-04-2025 10:13-0400 Body height 185.[address] Mathieu Virgen MD Work Phone: 5(996)342-270337 [place] [address] 05-04-2025 07:28-0400 Body mass index (BMI) [Ratio] 32 kg/m2 Dr. Mathieu Virgen MD Work Phone: 1(233)556-791937 [place] [address] 05-04-2025 07:28-0400 Body weight 110.[address] Mathieu Virgen MD Work Phone: 3(969)136-790737 [place] [address] 05-04-2025 07:28-0400 Heart rate 72 /min Dr. Mathieu Virgen MD Work Phone: 2(421)276-039137 [place] [address] 05-04-2025 07:28-0400 SaO2% (BldA) [Mass fraction] 96 % Dr. Mathieu Virgen MD Work Phone: 8(450)390-698837 [place] [address] 04-30-2025 16:33-0400 Body temperature 98.4 [degF] Dr. Mathieu Virgen MD Work Phone: 1(155)474-528037 [place] [address] 04-30-2025 16:33-0400 Diastolic blood pressure 73 mm[Hg] Dr. Mathieu Virgen MD Work Phone: 7(985)741-306537 [place] [address] 04-30-2025 16:33-0400 Heart rate 64 /min Dr. Mathieu Virgen MD Work Phone: 1(642)768-926937 [place] [address] 04-30-2025 16:33-0400 Respiratory rate 16 /min Dr. Mathieu Virgen MD Work Phone: 9(650)437-623737 [place] [address] 04-30-2025 16:33-0400 SaO2% (BldA) [Mass fraction] 98 % Dr. Mathieu Virgen MD Work Phone: 3(134)483-948837 [place] [address] 04-30-2025 16:33-0400 Systolic blood pressure 125 mm[Hg] Dr. Mathieu Virgen MD Work Phone: 4(343)284-305937 [place] [address] 04-30-2025 07:15-0400 Inhaled oxygen flow rate 2 L/min Dr. Mathieu Virgen MD Work Phone: 9(288)661-755837 [place] [address] 04-30-2025 03:23-0400 Body mass index (BMI) [Ratio] 33.2 kg/m2 Dr. Mathieu Virgen MD Work Phone: 8(070)977-725437 [place] [address] 04-30-2025 03:23-0400 Body weight 114.[address] Mathieu Virgen MD Work Phone: 1(273)825-814237 [place] [address] 04-29-2025 21:47-0400 Body temperature 97 [degF] Dr. Mathieu Virgen MD Work Phone: 2(708)911-743437 [place] [address] 04-29-2025 21:47-0400 Diastolic blood pressure 71 mm[Hg] Dr. Mathieu Virgen MD Work Phone: 6(601)395-096237 [place] [address] 04-29-2025 21:47-0400 Heart rate 71 /min Dr. Mathieu Virgen MD Work Phone: 2(253)485-446337 [place] [address] 04-29-2025 21:47-0400 Respiratory rate 22 /min Dr. Mathieu Virgen MD Work Phone: 0(308)746-862637 [place] [address] 04-29-2025 21:47-0400 SaO2% (BldA) [Mass fraction] 98 % Dr. Mathieu Virgen MD Work Phone: 9(735)768-820037 [place] [address] 04-29-2025 21:47-0400 Systolic blood pressure 138 mm[Hg] Dr. Mathieu Virgen MD Work Phone: 2(120)307-702137 [place] [address] 04-29-2025 21:43-0400 Body height 185.[address] Mathieu Virgen MD Work Phone: 6(350)439-938837 [place] [address] 04-29-2025 17:28-0400 Inhaled oxygen flow rate 2 L/min Dr. Mathieu Virgen MD Work Phone: 6(291)899-769337 [place] [address] 04-29-2025 15:42-0400 Body mass index (BMI) [Ratio] 33.5 kg/m2 Dr. Mathieu Virgen MD Work Phone: 9(464)635-071137 [place] [address] 04-29-2025 15:42-0400 Body weight 115.[address] Mathieu Virgen MD Work Phone: 5(043)317-610637 [place] [address] 04-29-2025 15:29-0400 Body height 185.[address] Mathieu Virgen MD Work Phone: 2(722)097-786237 [place] [address] 04-08-2025 07:17-0400 Body mass index (BMI) [Ratio] 33.1 kg/m2 Dr. Mathieu Virgen MD Work Phone: 4(627)345-655537 [place] [address] 04-08-2025 07:17-0400 Body temperature 97.2 [degF] Dr. Mathieu Virgen MD Work Phone: 8(179)571-827237 [place] [address] 04-08-2025 07:17-0400 Body weight 113.[address] Mathieu Virgen MD Work Phone: 9(685)861-931937 [place] [address] 04-08-2025 07:17-0400 Diastolic blood pressure 59 mm[Hg] Dr. Mathieu Virgen MD Work Phone: 2(115)715-849137 [place] [address] 04-08-2025 07:17-0400 Heart rate 78 /min Dr. Mathieu Virgen MD Work Phone: 1(833)856-467637 [place] [address] 04-08-2025 07:17-0400 Respiratory rate 20 /min Dr. Mathieu Virgen MD Work Phone: 0(489)114-109937 [place] [address] 04-08-2025 07:17-0400 SaO2% (BldA) [Mass fraction] 95 % Dr. Mathieu Virgen MD Work Phone: 3(615)515-018737 [place] [address] 04-08-2025 07:17-0400 Systolic blood pressure 114 mm[Hg] Dr. Mathieu Virgen MD Work Phone: [facility] 02-26-2025 14:00-0400 Body height 185.[address] Mathieu Virgen MD Work Phone: [facility] 02-26-2025 14:00-0400 Body weight 119.[address] Mathieu Virgen MD Work Phone: [facility] 02-26-2025 14:00-0400 Heart rate 82 /min Dr. Mathieu Virgen MD Work Phone: [facility] 02-26-2025 14:00-0400 SaO2% (BldA) [Mass fraction] 94 % Dr. Mathieu Virgen MD Work Phone: [facility] 01-26-2025 14:24-0400 Body mass index (BMI) [Ratio] 35.49 kg/m2 Mathieu Virgen MD Work Phone: [facility] 01-26-2025 14:24-0400 Body weight 122.02 kg Mathieu Virgen MD Work Phone: [facility] 01-26-2025 14:24-0400 Diastolic blood pressure 64 mm[Hg] Mathieu Virgen MD Work Phone: [facility] 01-26-2025 14:24-0400 Heart rate 82 /min Mathieu Virgen MD Work Phone: [facility] 01-26-2025 14:24-0400 SaO2% (BldA) [Mass fraction] 94 % Mathieu Virgen MD Work Phone: [facility] 01-26-2025 14:24-0400 Systolic blood pressure 108 mm[Hg] Mathieu Virgen MD Work Phone: [facility] 01-26-2025 09:39-0400 Body height 185.[address] Mathieu Virgen MD Work Phone: [facility] 01-26-2025 09:39-0400 Body mass index (BMI) [Ratio] 35.2 kg/m2 Dr. Mathieu Virgen MD Work Phone: [facility] 01-26-2025 09:39-0400 Body weight 121.[address] Mathieu Virgen MD Work Phone: 1(667)176-202437 [place] [address] 01-26-2025 09:39-0400 Diastolic blood pressure 73 mm[Hg] Dr. Mathieu Virgen MD Work Phone: 2(889)021-438337 [place] [address] 01-26-2025 09:39-0400 Heart rate 80 /min Dr. Mathieu Virgen MD Work Phone: 1(642)283-544537 [place] [address] 01-26-2025 09:39-0400 Respiratory rate 20 /min Dr. Mathieu Virgen MD Work Phone: 7(491)813-903337 [place] [address] 01-26-2025 09:39-0400 Systolic blood pressure 141 mm[Hg] Dr. Mathieu Virgen MD Work Phone: 8(806)706-380537 [place] [address] 01-21-2025 08:57-0400 Body mass index (BMI) [Ratio] 35.4 kg/m2 Dr. Mathieu Virgen MD Work Phone: 5(066)367-643637 [place] [address] 01-21-2025 08:57-0400 Body temperature 97.7 [degF] Dr. Mathieu Virgen MD Work Phone: 3(806)939-485437 [place] [address] 01-21-2025 08:57-0400 Body weight 122.[address] Mathieu Virgen MD Work Phone: 4(788)674-561037 [place] [address] 01-21-2025 08:57-0400 Diastolic blood pressure 66 mm[Hg] Dr. Mathieu Virgen MD Work Phone: 3(520)052-561137 [place] [address] 01-21-2025 08:57-0400 Heart rate 75 /min Dr. Mathieu Virgen MD Work Phone: 2(837)809-872437 [place] [address] 01-21-2025 08:57-0400 Respiratory rate 20 /min Dr. Mathieu Virgen MD Work Phone: 1(269)069-111537 [place] [address] 01-21-2025 08:57-0400 SaO2% (BldA) [Mass fraction] 94 % Dr. Mathieu Virgen MD Work Phone: 4(564)479-179537 [place] [address] 01-21-2025 08:57-0400 Systolic blood pressure 124 mm[Hg] Dr. Mathieu Virgen MD Work Phone: [facility] 01-20-2025 03:54-0400 Body temperature 98.1 [degF] Dr. Mathieu Virgen MD Work Phone: [facility] 01-20-2025 03:54-0400 Diastolic blood pressure 59 mm[Hg] Dr. Mathieu Virgen MD Work Phone: 9(734)418-521289 [place] [address] 01-20-2025 03:54-0400 Heart rate 70 /min Dr. Mathieu Virgen MD Work Phone: 2(836)844-130437 [place] [address] 01-20-2025 03:54-0400 Respiratory rate 18 /min Dr. Mathieu Virgen MD Work Phone: 5(337)547-857637 [place] [address] 01-20-2025 03:54-0400 SaO2% (BldA) [Mass fraction] 95 % Dr. Mathieu Virgen MD Work Phone: [facility] 01-20-2025 03:54-0400 Systolic blood pressure 135 mm[Hg] Dr. Mathieu Virgen MD Work Phone: 6(482)001-029589 [place] [address] 01-19-2025 22:43-0400 Body mass index (BMI) [Ratio] 35.4 kg/m2 Dr. Mathieu Virgen MD Work Phone: [facility] 01-19-2025 22:43-0400 Body weight 122.[address] Mathieu Virgen MD Work Phone: [facility] 01-12-2025 16:57-0400 Body mass index (BMI) [Ratio] 35.36 kg/m2 Mathieu Virgen MD Work Phone: [facility] 01-12-2025 16:57-0400 Body weight 121.56 kg Mathieu Virgen MD Work Phone: [facility] 01-12-2025 16:57-0400 Diastolic blood pressure 62 mm[Hg] Mathieu Virgen MD Work Phone: [facility] 01-12-2025 16:57-0400 Heart rate 77 /min Mathieu Virgen MD Work Phone: [facility] 01-12-2025 16:57-0400 SaO2% (BldA) [Mass fraction] 93 % Mathieu Virgen MD Work Phone: [facility] 01-12-2025 16:57-0400 Systolic blood pressure 112 mm[Hg] Mathieu Virgen MD Work Phone: [facility] 12-11-2024 13:10-0400 Body mass index (BMI) [Ratio] 36 kg/m2 Dr. Mathieu Virgen MD Work Phone: [facility] 12-11-2024 13:10-0400 Body weight 123.[address] Mathieu Virgen MD Work Phone: [facility] 12-11-2024 13:10-0400 Diastolic blood pressure 58 mm[Hg] Dr. Mathieu Virgen MD Work Phone: 4(612)830-217889 [place] [address] 12-11-2024 13:10-0400 Heart rate 72 /min Dr. Mathieu Virgen MD Work Phone: [facility] 12-11-2024 13:10-0400 Respiratory rate 18 /min Dr. Mathieu Virgen MD Work Phone: [facility] 12-11-2024 13:10-0400 Systolic blood pressure 113 mm[Hg] Dr. Mathieu Virgen MD Work Phone: [facility] 12-02-2024 15:36-0400 Body height 185.4 cm Mathieu Virgen MD Work Phone: [facility] 12-02-2024 15:36-0400 Body mass index (BMI) [Ratio] 36.02 kg/m2 Mathieu Virgen MD Work Phone: [facility] 12-02-2024 15:36-0400 Body weight 123.83 kg Mathieu Virgen MD Work Phone: [facility] 12-02-2024 15:36-0400 Diastolic blood pressure 54 mm[Hg] Mathieu Virgen MD Work Phone: [facility] 12-02-2024 15:36-0400 Heart rate 78 /min Mathieu Virgen MD Work Phone: [facility] 12-02-2024 15:36-0400 SaO2% (BldA) [Mass fraction] 95 % Mathieu Virgen MD Work Phone: [facility] 12-02-2024 15:36-0400 Systolic blood pressure 92 mm[Hg] Mathieu Virgen MD Work Phone: [facility] 11-03-2024 02:21-0500 Body temperature 98 [degF] Dr. Mathieu Virgen MD Work Phone: [facility] 11-03-2024 02:21-0500 Diastolic blood pressure 72 mm[Hg] Dr. Mathieu Virgen MD Work Phone: [facility] 11-03-2024 02:21-0500 Heart rate 72 /min Dr. Mathieu Virgen MD Work Phone: 2(017)665-603163 [address] 11-03-2024 02:21-0500 Respiratory rate 18 /min Dr. Mathieu Virgen MD Work Phone: [facility] 11-03-2024 02:21-0500 SaO2% (BldA) [Mass fraction] 96 % Dr. Mathieu Virgen MD Work Phone: [facility] 11-03-2024 02:21-0500 Systolic blood pressure 121 mm[Hg] Dr. Mathieu Virgen MD Work Phone: [facility] 11-03-2024 00:05-0500 Body height 185.[address] Mathieu Virgen MD Work Phone: [facility] 11-03-2024 00:05-0500 Body mass index (BMI) [Ratio] 35.9 kg/m2 Dr. Mathieu Virgen MD Work Phone: 3(007)537-920037 [place] [address] 11-03-2024 00:05-0500 Body weight 123.[address] Mathieu Virgen MD Work Phone: 3(582)978-325237 [place] [address] 10-31-2024 14:40-0500 Body mass index (BMI) [Ratio] 36.15 kg/m2 Sukh Knoble [employer].PCU RN Work Phone: [facility] 10-31-2024 14:40-0500 Body weight 124.29 kg Sukh Hall [employer].PCU RN Work Phone: [facility] 10-31-2024 14:40-0500 Diastolic blood pressure 68 mm[Hg] Sukh Hall LAB[employer].PCU RN Work Phone: [facility] 10-31-2024 14:40-0500 Heart rate 78 /min Sukh Hall LAB[employer].PCU RN Work Phone: [facility] 10-31-2024 14:40-0500 Respiratory rate 18 /min Sukh Hall [employer].PCU RN Work Phone: [facility] 10-31-2024 14:40-0500 SaO2% (BldA) [Mass fraction] 97 % Sukh Hall [employer].PCU RN Work Phone: [facility] 10-31-2024 14:40-0500 Systolic blood pressure 114 mm[Hg] Sukh Hall [employer].PCU RN Work Phone: 4(734)810-514343 [place] [address] 09-23-2024 15:27-0500 Body mass index (BMI) [Ratio] 37.2 kg/m2 Dr. Mathieu Virgen MD Work Phone: 1(706)434-674889 [place] [address] 09-23-2024 15:27-0500 Body weight 127.[address] Mathieu Virgen MD Work Phone: 4(625)872-219189 [place] [address] 09-23-2024 15:27-0500 Diastolic blood pressure 80 mm[Hg] Dr. Mathieu Virgen MD Work Phone: 1(061)639-058637 [place] [address] 09-23-2024 15:27-0500 Heart rate 74 /min Dr. Mathieu Virgen MD Work Phone: 7(250)685-674037 [place] [address] 09-23-2024 15:27-0500 Respiratory rate 18 /min Dr. Mathieu Virgen MD Work Phone: 9(272)271-900237 [place] [address] 09-23-2024 15:27-0500 SaO2% (BldA) [Mass fraction] 94 % Dr. Mathieu Virgen MD Work Phone: [facility] 09-23-2024 15:27-0500 Systolic blood pressure 162 mm[Hg] Dr. Mathieu Virgen MD Work Phone: [facility] 09-23-2024 14:42-0500 Body mass index (BMI) [Ratio] 37.21 kg/m2 Denisha Haagen [employer].PCU RN Work Phone: [facility] 09-23-2024 14:42-0500 Body weight 127.91 kg Denisha Haagen [employer].PCU RN Work Phone: [facility] 09-23-2024 14:42-0500 Diastolic blood pressure 68 mm[Hg] Denisha Haagen [employer].PCU RN Work Phone: [facility] 09-23-2024 14:42-0500 Heart rate 79 /min Denisha Haagen [employer].PCU RN Work Phone: [facility] 09-23-2024 14:42-0500 Respiratory rate 16 /min Denisha Haagen [employer].PCU RN Work Phone: [facility] 09-23-2024 14:42-0500 SaO2% (BldA) [Mass fraction] 99 % Denisha Haagen [employer].PCU RN Work Phone: [facility] 09-23-2024 14:42-0500 Systolic blood pressure 118 mm[Hg] Denisha Haagen [employer].PCU RN Work Phone: [facility] 09-20-2024 19:33-0500 Body temperature 98.2 [degF] Dr. Mathieu Virgen MD Work Phone: [facility] 09-20-2024 19:33-0500 Diastolic blood pressure 72 mm[Hg] Dr. Mathieu Virgen MD Work Phone: [facility] 09-20-2024 19:33-0500 Heart rate 79 /min Dr. Mathieu Virgen MD Work Phone: 9(752)860-567889 [place] [address] 09-20-2024 19:33-0500 Respiratory rate 19 /min Dr. Mathieu Virgen MD Work Phone: 5(468)349-959437 [place] [address] 09-20-2024 19:33-0500 SaO2% (BldA) [Mass fraction] 96 % Dr. Mathieu Virgen MD Work Phone: 9(826)591-480437 [place] [address] 09-20-2024 19:33-0500 Systolic blood pressure 118 mm[Hg] Dr. Mathieu Virgen MD Work Phone: 5(759)615-762837 [place] [address] 09-20-2024 17:00-0500 Inhaled oxygen flow rate 2 L/min Dr. Mathieu Virgen MD Work Phone: 4(568)057-689237 [place] [address] 09-20-2024 15:46-0500 Body mass index (BMI) [Ratio] 37.8 kg/m2 Dr. Mathieu Virgen MD Work Phone: 4(440)506-363937 [place] [address] 09-20-2024 15:46-0500 Body weight 130.[address] Mathieu Virgen MD Work Phone: 5(385)999-624837 [place] [address] 09-03-2024 15:19-0500 Body mass index (BMI) [Ratio] 37.5 kg/m2 Dr. Mathieu Virgen MD Work Phone: 5(600)543-578437 [place] [address] 09-03-2024 15:19-0500 Body weight 129.[address] Mathieu Virgen MD Work Phone: 5(469)185-451537 [place] [address] 09-03-2024 15:19-0500 Diastolic blood pressure 69 mm[Hg] Dr. Mathieu Virgen MD Work Phone: 5(802)870-604437 [place] [address] 09-03-2024 15:19-0500 Heart rate 76 /min Dr. Mathieu Virgen MD Work Phone: 5(469)040-762837 [place] [address] 09-03-2024 15:19-0500 Inhaled oxygen flow rate 2 L/min Dr. Mathieu Virgen MD Work Phone: 6(230)361-673037 [place] [address] 09-03-2024 15:19-0500 Respiratory rate 18 /min Dr. Mathieu Virgen MD Work Phone: 3(358)599-016237 [place] [address] 09-03-2024 15:19-0500 Systolic blood pressure 109 mm[Hg] Dr. Mathieu Virgen MD Work Phone: 4(861)275-277037 [place] [address] 09-01-2024 07:39-0500 Body temperature 98.2 [degF] Dr. Mathieu Virgen MD Work Phone: 0(656)182-101937 [place] [address] 09-01-2024 07:39-0500 Diastolic blood pressure 78 mm[Hg] Dr. Mathieu Virgen MD Work Phone: 7(968)407-673437 [place] [address] 09-01-2024 07:39-0500 Heart rate 65 /min Dr. Mathieu Virgen MD Work Phone: 4(854)696-710637 [place] [address] 09-01-2024 07:39-0500 Respiratory rate 18 /min Dr. Mathieu Virgen MD Work Phone: 9(503)832-908537 [place] [address] 09-01-2024 07:39-0500 SaO2% (BldA) [Mass fraction] 97 % Dr. Mathieu Virgen MD Work Phone: 8(418)054-062537 [place] [address] 09-01-2024 07:39-0500 Systolic blood pressure 101 mm[Hg] Dr. Mathieu Virgen MD Work Phone: 3(101)066-018337 [place] [address] 09-01-2024 06:00-0500 Inhaled oxygen flow rate 2 L/min Dr. Mathieu Virgen MD Work Phone: 7(792)770-617337 [place] [address] 09-01-2024 04:38-0500 Body mass index (BMI) [Ratio] 38.7 kg/m2 Dr. Mathieu Virgen MD Work Phone: 1(351)912-729837 [place] [address] 09-01-2024 04:38-0500 Body weight [address] Mathieu Virgen MD Work Phone: 5(737)471-688637 [place] [address] 08-13-2024 13:17-0500 Body mass index (BMI) [Ratio] 38.1 kg/m2 Dr. Mathieu Virgen MD Work Phone: 8(103)449-582037 [place] [address] 08-13-2024 13:17-0500 Body weight 131.[address] Mathieu Virgen MD Work Phone: 2(075)001-806837 [place] [address] 08-13-2024 13:17-0500 Diastolic blood pressure 57 mm[Hg] Dr. Mathieu Virgen MD Work Phone: [facility] 08-13-2024 13:17-0500 Heart rate 73 /min Dr. Mathieu Virgen MD Work Phone: [facility] 08-13-2024 13:17-0500 Respiratory rate 16 /min Dr. Mathieu Virgen MD Work Phone: [facility] 08-13-2024 13:17-0500 Systolic blood pressure 99 mm[Hg] Dr. Mathieu Virgen MD Work Phone: [facility] 07-29-2024 12:14-0500 Diastolic blood pressure 50 mm[Hg] Julianna Suppan [employer].PCU RN Work Phone: [facility] 07-29-2024 12:14-0500 Systolic blood pressure 104 mm[Hg] Julianna Suppan [employer].PCU RN Work Phone: [facility] 07-29-2024 11:29-0500 Body mass index (BMI) [Ratio] 39.32 kg/m2 Julianna Suppan [employer].PCU RN Work Phone: [facility] 07-29-2024 11:29-0500 Body weight 135.17 kg Julianna Suppan [employer].PCU RN Work Phone: [facility] 07-29-2024 11:29-0500 Heart rate 70 /min Julianna Suppan [employer].PCU RN Work Phone: [facility] 07-29-2024 11:29-0500 Respiratory rate 24 /min Julianna Suppan [employer].PCU RN Work Phone: [facility] 07-29-2024 11:29-0500 SaO2% (BldA) [Mass fraction] 92 % Julianna Suppan [employer].PCU RN Work Phone: [facility] Comment on above: 2 liters 06-23-2024 14:37-0400 Body mass index (BMI) [Ratio] 39.56 kg/m2 Abril Duval [employer].PCU RN Work Phone: [facility] 06-23-2024 14:37-0400 Body weight 136 kg Abril Simin [employer].PCU RN Work Phone: [facility] 06-23-2024 14:37-0400 Diastolic blood pressure 77 mm[Hg] Abril Simin [employer].PCU RN Work Phone: [facility] 06-23-2024 14:37-0400 Heart rate 82 /min Abril Simin [employer].PCU RN Work Phone: [facility] 06-23-2024 14:37-0400 Respiratory rate 18 /min Abril Simin [employer].PCU RN Work Phone: [facility] 06-23-2024 14:37-0400 SaO2% (BldA) [Mass fraction] 95 % Abril Simin [employer].PCU RN Work Phone: [facility] 06-23-2024 14:37-0400 Systolic blood pressure 155 mm[Hg] Abril Simin [employer].PCU RN Work Phone: [facility] 06-20-2024 15:38-0400 Body height 185.4 cm Mathieu Virgen MD Work Phone: [facility] 06-20-2024 15:38-0400 Body mass index (BMI) [Ratio] 39.76 kg/m2 Mathieu Virgen MD Work Phone: [facility] 06-20-2024 15:38-0400 Body weight 136.71 kg Mathieu Virgen MD Work Phone: [facility] 06-20-2024 15:38-0400 Diastolic blood pressure 56 mm[Hg] Mathieu Virgen MD Work Phone: [facility] 06-20-2024 15:38-0400 Heart rate 80 /min Mathieu Virgen MD Work Phone: [facility] 06-20-2024 15:38-0400 SaO2% (BldA) [Mass fraction] 94 % Mathieu Virgen MD Work Phone: [facility] 06-20-2024 15:38-0400 Systolic blood pressure 132 mm[Hg] Mathieu Virgen MD Work Phone: [facility] 04-09-2024 14:25-0400 Body mass index (BMI) [Ratio] 40.9 kg/m2 [facility] [employer].PCU RN Work Phone: [facility] 04-09-2024 14:25-0400 Body temperature 98.8 [degF] [facility] [employer].PCU RN Work Phone: [facility] 04-09-2024 14:25-0400 Body weight 140.6 kg [facility] [employer].PCU RN Work Phone: [facility] 04-09-2024 14:25-0400 Diastolic blood pressure 84 mm[Hg] [facility] [employer].PCU RN Work Phone: [facility] 04-09-2024 14:25-0400 Heart rate 94 /min [facility] [employer].PCU RN Work Phone: [facility] 04-09-2024 14:25-0400 Respiratory rate 20 /min [facility] [employer].PCU RN Work Phone: [facility] 04-09-2024 14:25-0400 SaO2% (BldA) [Mass fraction] 93 % [facility] [employer].PCU RN Work Phone: [facility] 04-09-2024 14:25-0400 Systolic blood pressure 128 mm[Hg] [facility] [employer].PCU RN Work Phone: [facility] 02-28-2024 11:50-0400 Diastolic blood pressure 86 mm[Hg] NA Travis PA-C Work Phone: [facility] 02-28-2024 11:50-0400 Systolic blood pressure 148 mm[Hg] NA Travis PA-C Work Phone: [facility] 02-28-2024 11:00-0400 Body mass index (BMI) [Ratio] 40.69 kg/m2 NA Travis PA-C Work Phone: [facility] 02-28-2024 11:00-0400 Body weight 139.89 kg NA Travis PA-C Work Phone: [facility] 02-28-2024 11:00-0400 Heart rate 85 /min NA Travis PA-C Work Phone: [facility] 02-28-2024 11:00-0400 SaO2% (BldA) [Mass fraction] 94 % NA Travis PA-C Work Phone: [facility] 02-04-2024 11:33-0400 Body mass index (BMI) [Ratio] 39.18 kg/m2 NA Travis PA-C Work Phone: [facility] 02-04-2024 11:33-0400 Body weight 134.72 kg NA Travis PA-C Work Phone: [facility] 02-04-2024 11:33-0400 Diastolic blood pressure 69 mm[Hg] NA Travis PA-C Work Phone: [facility] 02-04-2024 11:33-0400 Heart rate 73 /min NA Travis PA-C Work Phone: [facility] 02-04-2024 11:33-0400 Respiratory rate 18 /min NA Travis PA-C Work Phone: [facility] 02-04-2024 11:33-0400 SaO2% (BldA) [Mass fraction] 94 % NA Travis PA-C Work Phone: [facility] 02-04-2024 11:33-0400 Systolic blood pressure 113 mm[Hg] NA Travis PA-C Work Phone: [facility] 12-25-2023 13:44-0400 Body weight 130.18 kg Mathieu Virgen MD Work Phone: [facility] 12-25-2023 13:44-0400 Diastolic blood pressure 80 mm[Hg] Mathieu Virgen MD Work Phone: [facility] 12-25-2023 13:44-0400 Heart rate 73 /min Mathieu Virgen MD Work Phone: [facility] 12-25-2023 13:44-0400 Respiratory rate 18 /min Mathieu Virgen MD Work Phone: [facility] 12-25-2023 13:44-0400 SaO2% (BldA) [Mass fraction] 96 % Mathieu Virgen MD Work Phone: [facility] 12-25-2023 13:44-0400 Systolic blood pressure 122 mm[Hg] Mathieu Virgen MD Work Phone: [facility] 09-22-2023 14:49-0500 Diastolic blood pressure 56 mm[Hg] [facility] 09-22-2023 14:49-0500 Heart rate 75 /min [facility] 09-22-2023 14:49-0500 Respiratory rate 16 /min [facility] 09-22-2023 14:49-0500 SaO2% (BldA) [Mass fraction] 96 % [facility] 09-22-2023 14:49-0500 Systolic blood pressure 121 mm[Hg] [facility] 09-22-2023 10:13-0500 Body height 185.42 cm [facility] 09-22-2023 10:13-0500 Body mass index (BMI) [Ratio] 38.2 kg/m2 [facility] 09-22-2023 10:13-0500 Body temperature 96.9 [degF] [facility] 09-22-2023 10:13-0500 Body weight 131.3 kg [facility] 07-23-2023 14:18-0500 Diastolic blood pressure 70 mm[Hg] Pio Nicole MD Work Phone: [facility] 07-23-2023 14:18-0500 Heart rate 64 /min Pio Nicole MD Work Phone: [facility] 07-23-2023 14:18-0500 Respiratory rate 20 /min Pio Nicole MD Work Phone: [facility] 07-23-2023 14:18-0500 SaO2% (BldA) [Mass fraction] 96 % Pio Nicole MD Work Phone: [facility] 07-23-2023 14:18-0500 Systolic blood pressure 128 mm[Hg] Pio Nicole MD Work Phone: [facility] 06-09-2023 10:41-0400 Body temperature 98.6 [degF] Pio Nicole MD Work Phone: [facility] 06-09-2023 10:41-0400 Body weight 132.45 kg Pio Nicole MD Work Phone: [facility] 06-09-2023 10:41-0400 Diastolic blood pressure 68 mm[Hg] Pio Nicole MD Work Phone: [facility] 06-09-2023 10:41-0400 Heart rate 79 /min Pio Nicole MD Work Phone: [facility] 06-09-2023 10:41-0400 Respiratory rate 30 /min Pio Nicole MD Work Phone: [facility] 06-09-2023 10:41-0400 SaO2% (BldA) [Mass fraction] 93 % Pio Nicole MD Work Phone: [facility] 06-09-2023 10:41-0400 Systolic blood pressure 124 mm[Hg] Pio Nicole MD Work Phone: [facility] 06-06-2023 10:25-0400 Body height 185.4 cm Mathieu Virgen MD Work Phone: [facility] 06-06-2023 10:25-0400 Body weight 134.17 kg Mathieu Virgen MD Work Phone: [facility] 06-06-2023 10:25-0400 Diastolic blood pressure 64 mm[Hg] Mathieu Virgen MD Work Phone: [facility] 06-06-2023 10:25-0400 Heart rate 77 /min Mathieu Virgen MD Work Phone: [facility] 06-06-2023 10:25-0400 SaO2% (BldA) [Mass fraction] 97 % Mathieu Virgen MD Work Phone: [facility] 06-06-2023 10:25-0400 Systolic blood pressure 130 mm[Hg] Mathieu Virgen MD Work Phone: [facility] 05-18-2023 15:03-0400 Body height 185.4 cm NA Travis PA-C Work Phone: [facility] 05-18-2023 15:03-0400 Body temperature 97.11 [degF] NA Travis PA-C Work Phone: [facility] 05-18-2023 15:03-0400 Body weight 131 kg NA Travis PA-C Work Phone: [facility] 05-18-2023 15:03-0400 Diastolic blood pressure 64 mm[Hg] NA Travis PA-C Work Phone: [facility] 05-18-2023 15:03-0400 Heart rate 72 /min NA Travis PA-C Work Phone: [facility] 05-18-2023 15:03-0400 SaO2% (BldA) [Mass fraction] 96 % NA Travis PA-C Work Phone: [facility] 05-18-2023 15:03-0400 Systolic blood pressure 104 mm[Hg] NA Travis PA-C Work Phone: [facility] 05-01-2023 14:23-0400 Body temperature 97.9 [degF] NA Travis PA-C Work Phone: [facility] 05-01-2023 14:23-0400 Diastolic blood pressure 70 mm[Hg] NA Travis PA-C Work Phone: [facility] 05-01-2023 14:23-0400 Heart rate 80 /min NA Travis PA-C Work Phone: [facility] 05-01-2023 14:23-0400 Respiratory rate 20 /min NA Travis PA-C Work Phone: [facility] 05-01-2023 14:23-0400 SaO2% (BldA) [Mass fraction] 96 % NA Travis PA-C Work Phone: [facility] 05-01-2023 14:23-0400 Systolic blood pressure 118 mm[Hg] NA Travis PA-C Work Phone: [facility] 04-30-2023 14:11-0400 Body weight 132.9 kg NA Travis PA-C Work Phone: [facility] 04-30-2023 14:11-0400 Diastolic blood pressure 68 mm[Hg] NA Travis PA-C Work Phone: [facility] 04-30-2023 14:11-0400 Heart rate 75 /min NA Travis PA-C Work Phone: [facility] 04-30-2023 14:11-0400 Respiratory rate 18 /min NA Travis PA-C Work Phone: [facility] 04-30-2023 14:11-0400 SaO2% (BldA) [Mass fraction] 95 % NA Travis PA-C Work Phone: [facility] 04-30-2023 14:11-0400 Systolic blood pressure 114 mm[Hg] NA Travis PA-C Work Phone: [facility] 03-31-2023 04:41-0400 Diastolic blood pressure 68 mm[Hg] Dr. Mathieu Virgen Work Phone: [facility] 03-31-2023 04:41-0400 Heart rate 65 /min Dr. Mathieu Virgen Work Phone: [facility] 03-31-2023 04:41-0400 Respiratory rate 16 /min Dr. Mathieu Virgen Work Phone: [facility] 03-31-2023 04:41-0400 SaO2% (BldA) [Mass fraction] 98 % Dr. Mathieu Virgen Work Phone: [facility] 03-31-2023 04:41-0400 Systolic blood pressure 138 mm[Hg] Dr. Mathieu Virgen Work Phone: [facility] 03-31-2023 00:17-0400 Body height 184.[address] Mathieu Vigren Work Phone: [facility] 03-31-2023 00:17-0400 Body temperature 97.8 [degF] Dr. Mathieu Virgen Work Phone: [facility] 03-05-2023 15:22-0400 Body temperature 97.3 [degF] Andrew Guallpa [employer].PCU RN Work Phone: [facility] 03-05-2023 15:22-0400 Body weight 138.26 kg Andrewdeirdre Guallpa [employer].PCU RN Work Phone: [facility] 03-05-2023 15:22-0400 Diastolic blood pressure 62 mm[Hg] Andrew Guallpa [employer].PCU RN Work Phone: [facility] 03-05-2023 15:22-0400 Heart rate 82 /min Andrew Guallpa [employer].PCU RN Work Phone: [facility] 03-05-2023 15:22-0400 Respiratory rate 20 /min Andrewdeirdre Guallpa [employer].PCU RN Work Phone: [facility] 03-05-2023 15:22-0400 SaO2% (BldA) [Mass fraction] 94 % Andrew Guallpa [employer].PCU RN Work Phone: [facility] 03-05-2023 15:22-0400 Systolic blood pressure 120 mm[Hg] Andrew Guallpa [employer].PCU RN Work Phone: [facility] 03-02-2023 16:23-0400 Body weight 137.44 kg Mathieu Virgen MD Work Phone: [facility] 03-02-2023 16:23-0400 Diastolic blood pressure 60 mm[Hg] Mathieu Virgen MD Work Phone: [facility] 03-02-2023 16:23-0400 Heart rate 76 /min Mathieu Virgen MD Work Phone: [facility] 03-02-2023 16:23-0400 SaO2% (BldA) [Mass fraction] 93 % Mathieu Virgen MD Work Phone: [facility] 03-02-2023 16:23-0400 Systolic blood pressure 112 mm[Hg] Mathieu Virgen MD Work Phone: [facility] 03-01-2023 22:57-0400 Diastolic blood pressure 67 mm[Hg] Dr. Mathieu Virgen Work Phone: [facility] 03-01-2023 22:57-0400 Heart rate 73 /min Dr. Mathieu Virgen Work Phone: [facility] 03-01-2023 22:57-0400 Respiratory rate 16 /min Dr. Mathieu Virgen Work Phone: [facility] 03-01-2023 22:57-0400 SaO2% (BldA) [Mass fraction] 95 % Dr. Mathieu Virgen Work Phone: [facility] 03-01-2023 22:57-0400 Systolic blood pressure 132 mm[Hg] Dr. Mathieu Virgen Work Phone: 0(970)262-873637 [place] [address] 03-01-2023 20:28-0400 Body height 185.[address] Mathieu Virgen Work Phone: 0(505)521-692137 [place] [address] 03-01-2023 20:28-0400 Body mass index (BMI) [Ratio] 40 kg/m2 Dr. Mathieu Virgen Work Phone: 9(397)282-209789 [place] [address] 03-01-2023 20:28-0400 Body temperature 97.8 [degF] Dr. Mathieu Virgen Work Phone: 4(773)836-863937 [place] [address] 03-01-2023 20:28-0400 Body weight 137.[address] Mathieu Virgen Work Phone: 1(629)695-772637 [place] [address] 03-01-2023 07:54-0400 Body mass index (BMI) [Ratio] 39.2 kg/m2 Dr. Mathieu Virgen Work Phone: 0(457)460-281937 [place] [address] 03-01-2023 07:54-0400 Body temperature 97.7 [degF] Dr. Mathieu Virgen Work Phone: 1(728)740-376337 [place] [address] 03-01-2023 07:54-0400 Body weight 134.[address] Mathieu Virgen Work Phone: 4(545)106-381437 [place] [address] 03-01-2023 07:54-0400 Diastolic blood pressure 59 mm[Hg] Dr. Mathieu Virgen Work Phone: 4(173)747-464137 [place] [address] 03-01-2023 07:54-0400 Heart rate 84 /min Dr. Mathieu Virgen Work Phone: 6(106)670-081337 [place] [address] 03-01-2023 07:54-0400 Respiratory rate 20 /min Dr. Mathieu Virgen Work Phone: 4(779)852-524137 [place] [address] 03-01-2023 07:54-0400 SaO2% (BldA) [Mass fraction] 91 % Dr. Mathieu Virgen Work Phone: 4(174)790-825337 [place] [address] 03-01-2023 07:54-0400 Systolic blood pressure 131 mm[Hg] Dr. Mathieu Virgen Work Phone: 7(784)150-442437 [place] [address] 02-25-2023 03:07-0400 Diastolic blood pressure 75 mm[Hg] Dr. Mathieu Virgen Work Phone: 6(149)101-856937 [place] [address] 02-25-2023 03:07-0400 Heart rate 66 /min Dr. Mathieu Virgen Work Phone: 3(055)924-583037 [place] [address] 02-25-2023 03:07-0400 Respiratory rate 22 /min Dr. Mathieu Virgen Work Phone: 1(590)230-969537 [place] [address] 02-25-2023 03:07-0400 SaO2% (BldA) [Mass fraction] 96 % Dr. Mathieu Virgen Work Phone: 9(874)871-423037 [place] [address] 02-25-2023 03:07-0400 Systolic blood pressure 153 mm[Hg] Dr. Mathieu Virgen Work Phone: 2(680)843-298637 [place] [address] 02-24-2023 21:56-0400 Body mass index (BMI) [Ratio] 40.8 kg/m2 Dr. Mathieu Virgen Work Phone: [facility] 02-24-2023 21:56-0400 Body temperature 96.6 [degF] Dr. Mathieu Virgen Work Phone: [facility] 02-24-2023 21:56-0400 Body weight 140.[address] Mathieu Virgen Work Phone: [facility] 02-16-2023 14:38-0400 Diastolic blood pressure 80 mm[Hg] Denisha Haagen [employer].PCU RN Work Phone: [facility] 02-16-2023 14:38-0400 Heart rate 82 /min Denisha Haagen [employer].PCU RN Work Phone: [facility] 02-16-2023 14:38-0400 Respiratory rate 16 /min Denisha Haagen [employer].PCU RN Work Phone: [facility] 02-16-2023 14:38-0400 SaO2% (BldA) [Mass fraction] 94 % Denisha Haagen [employer].PCU RN Work Phone: [facility] 02-16-2023 14:38-0400 Systolic blood pressure 142 mm[Hg] Denisha Haagen [employer].PCU RN Work Phone: [facility] 01-19-2023 14:18-0400 Body weight 137.44 kg Mathieu Virgen MD Work Phone: [facility] 01-19-2023 14:18-0400 Diastolic blood pressure 72 mm[Hg] Mathieu Virgen MD Work Phone: [facility] 01-19-2023 14:18-0400 Heart rate 86 /min Mathieu Virgen MD Work Phone: [facility] 01-19-2023 14:18-0400 Respiratory rate 16 /min Mathieu Virgen MD Work Phone: [facility] 01-19-2023 14:18-0400 Systolic blood pressure 134 mm[Hg] Mathieu Virgen MD Work Phone: [facility] 03-15-2023 09:33-0400 Body height 185.4 cm Mathieu Virgen MD Work Phone: [facility] 11-29-2022 09:33-0400 Body weight 137.89 kg Mathieu Virgen MD Work Phone: [facility] 11-29-2022 09:33-0400 Diastolic blood pressure 68 mm[Hg] Mathieu Virgen MD Work Phone: [facility] 11-29-2022 09:33-0400 Heart rate 85 /min Mathieu Virgen MD Work Phone: [facility] 11-29-2022 09:33-0400 SaO2% (BldA) [Mass fraction] 96 % Mathieu Virgen MD Work Phone: [facility] 11-29-2022 09:33-0400 Systolic blood pressure 136 mm[Hg] Mathieu Virgen MD Work Phone: [facility] 11-21-2022 14:44-0500 Body temperature 97.7 [degF] Dr. Mathieu Virgen Work Phone: [facility] 11-21-2022 14:44-0500 Diastolic blood pressure 74 mm[Hg] Dr. Mathieu Virgen Work Phone: [facility] 11-21-2022 14:44-0500 Heart rate 78 /min Dr. Mathieu Virgen Work Phone: [facility] 11-21-2022 14:44-0500 Respiratory rate 16 /min Dr. Mathieu Virgen Work Phone: [facility] 11-21-2022 14:44-0500 SaO2% (BldA) [Mass fraction] 94 % Dr. Mathieu Virgen Work Phone: [facility] 11-21-2022 14:44-0500 Systolic blood pressure 145 mm[Hg] Dr. Mathieu Virgen Work Phone: [facility] 11-21-2022 08:28-0500 Body height 185.[address] Mathieu Virgen Work Phone: [facility] 11-21-2022 08:28-0500 Body mass index (BMI) [Ratio] 39.9 kg/m2 Dr. Mathieu Virgen Work Phone: 0(378)417-642137 [place] [address] 11-21-2022 08:28-0500 Body weight 137.[address] Mathieu Virgen Work Phone: 5(572)632-322137 [place] [address] 11-21-2022 01:50-0500 Diastolic blood pressure 77 mm[Hg] Dr. Mathieu Virgen Work Phone: 1(552)700-395737 [place] [address] 11-21-2022 01:50-0500 Heart rate 89 /min Dr. Mathieu Virgen Work Phone: 8(475)864-309837 [place] [address] 11-21-2022 01:50-0500 Respiratory rate 15 /min Dr. Mathieu Virgen Work Phone: 1(855)553-179637 [place] [address] 11-21-2022 01:50-0500 SaO2% (BldA) [Mass fraction] 99 % Dr. Mathieu Virgen Work Phone: 2(246)374-041837 [place] [address] 11-21-2022 01:50-0500 Systolic blood pressure 150 mm[Hg] Dr. Mathieu Virgen Work Phone: 6(781)013-208837 [place] [address] 11-20-2022 23:59-0500 Body mass index (BMI) [Ratio] 40.8 kg/m2 Dr. Mathieu Virgen Work Phone: 8(665)386-302237 [place] [address] 11-20-2022 23:59-0500 Body temperature 97.9 [degF] Dr. Mathieu Virgen Work Phone: 5(308)[phone] [place] [address] 11-20-2022 23:59-0500 Body weight 140.[address] Mathieu Virgen Work Phone: 4(166)[phone] [place] [address] 10-26-2022 11:24-0500 Body weight 138.[address] Mathieu Virgen Work Phone: 6(432)[phone] [place] [address] 10-26-2022 11:24-0500 Diastolic blood pressure 66 mm[Hg] Dr. Mathieu Virgen Work Phone: 3(086)[phone] [place] [address] 10-26-2022 11:24-0500 Heart rate 75 /min Dr. Mathieu Viregn Work Phone: [facility] 10-26-2022 11:24-0500 Respiratory rate 24 /min Dr. Mathieu Virgen Work Phone: [facility] 10-26-2022 11:24-0500 Systolic blood pressure 104 mm[Hg] Dr. Mathieu Virgen Work Phone: [facility] 08-08-2022 08:49-0500 Body height 185.[address] Mathieu Virgen Work Phone: [facility] Work Phone: 08-08-2022 08:49-0500 Body mass index (BMI) [Ratio] 39.5 kg/m2 Dr. Mathieu Virgen Work Phone: [facility] 08-08-2022 08:49-0500 Body temperature 97.5 [degF] Dr. Mathieu Virgen Work Phone: [phone])[phone] [place] [address] 08-08-2022 08:49-0500 Body weight 136.[address] Mathieu Virgen Work Phone: 2(575)[phone] [address] 08-08-2022 08:49-0500 Diastolic blood pressure 65 mm[Hg] Dr. Mathieu Virgen Work Phone: [facility] 08-08-2022 08:49-0500 Heart rate 86 /min Dr. Mathieu Virgen Work Phone: [facility] 08-08-2022 08:49-0500 Respiratory rate 14 /min Dr. Mathieu Virgen Work Phone: [facility] 08-08-2022 08:49-0500 SaO2% (BldA) [Mass fraction] 96 % Dr. Mathieu Virgen Work Phone: [facility] 08-08-2022 08:49-0500 Systolic blood pressure 160 mm[Hg] Dr. Mathieu Virgen Work Phone: [facility] 05-31-2022 10:38-0400 Body height 185.4 cm Mathieu Virgen MD Work Phone: [facility] 05-31-2022 10:38-0400 Body weight 136.08 kg Mathieu Virgen MD Work Phone: [facility] 05-31-2022 10:38-0400 Diastolic blood pressure 68 mm[Hg] Mathieu Virgen MD Work Phone: [facility] 05-31-2022 10:38-0400 Heart rate 87 /min Mathieu Virgen MD Work Phone: [facility] 05-31-2022 10:38-0400 SaO2% (BldA) [Mass fraction] 94 % Mathieu Virgen MD Work Phone: [facility] 05-31-2022 10:38-0400 Systolic blood pressure 136 mm[Hg] Mathieu Virgen MD Work Phone: [facility] 05-04-2022 08:51-0400 Body mass index (BMI) [Ratio] 39.8 kg/m2 Dr. Mathieu Virgen Work Phone: [facility] Work Phone: 05-04-2022 08:51-0400 Body weight 136.[address] Mathieu Virgen Work Phone: [facility] Work Phone: 05-04-2022 08:51-0400 Diastolic blood pressure 69 mm[Hg] Dr. Mathieu Virgen Work Phone: [facility] Work Phone: 05-04-2022 08:51-0400 Heart rate 80 /min Dr. Mathieu Virgen Work Phone: [facility] Work Phone: 05-04-2022 08:51-0400 Respiratory rate 22 /min Dr. Mathieu Virgen Work Phone: [facility] Work Phone: 05-04-2022 08:51-0400 Systolic blood pressure 112 mm[Hg] Dr. Mathieu Virgen Work Phone: [facility] Work Phone: 04-08-2022 19:02-0400 Diastolic blood pressure 54 mm[Hg] Dr. Mathieu Virgen Work Phone: [facility] Work Phone: 04-08-2022 19:02-0400 Heart rate 78 /min Dr. Mathieu Virgen Work Phone: [facility] Work Phone: 04-08-2022 19:02-0400 Systolic blood pressure 137 mm[Hg] Dr. Mathieu Virgen Work Phone: [facility] Work Phone: 04-08-2022 18:04-0400 Respiratory rate 16 /min Dr. Mathieu Virgen Work Phone: [facility] Work Phone: 04-08-2022 18:04-0400 SaO2% (BldA) [Mass fraction] 96 % Dr. Mathieu Virgen Work Phone: [facility] Work Phone: 04-08-2022 15:02-0400 Body height 185.[address] Mathieu Virgen Work Phone: [facility] Work Phone: 04-08-2022 15:02-0400 Body mass index (BMI) [Ratio] 39.8 kg/m2 Dr. Mathieu Virgen Work Phone: [facility] Work Phone: 04-08-2022 15:02-0400 Body temperature 97.8 [degF] Dr. Mathieu Virgen Work Phone: [facility] Work Phone: 04-08-2022 15:02-0400 Body weight [address] Mathieu Virgen Work Phone: [facility] Work Phone: 04-08-2022 14:43-0400 Body temperature 97.5 [degF] Andrew Guallpa APRN.CNP Work Phone: [facility] 04-08-2022 14:43-0400 Body weight 137.26 kg Andrew Pendlebury LABORER [employer]ROLE[employer] REFINERY.PCU RN Work Phone: [facility] 04-08-2022 14:43-0400 Diastolic blood pressure 60 mm[Hg] Andrew Pendlebury LABORER PETROLEUM REFINERY.PCU RN Work Phone: [facility] 04-08-2022 14:43-0400 Heart rate 80 /min Andrew Pendlebury LABORER PETROLE[employer] REFINERY.PCU RN Work Phone: [facility] 04-08-2022 14:43-0400 Respiratory rate 21 /min [facility] LAB[facility]ER [employer]ROLEUM REFINERY.PCU RN Work Phone: [facility] 04-08-2022 14:43-0400 SaO2% (BldA) [Mass fraction] 97 % [facility] LABORER [employer]ROLE[employer] REFIN[employer].PCU RN Work Phone: [facility] 04-08-2022 14:43-0400 Systolic blood pressure 136 mm[Hg] Andrew Pendlebury LABORER PETROLE[employer] REFINERY.PCU RN Work Phone: [facility] 03-03-2022 10:26-0400 Body weight 136.53 kg Mathieu Virgen MD Work Phone: [facility] 03-03-2022 10:26-0400 Diastolic blood pressure 74 mm[Hg] Mathieu Virgen MD Work Phone: [facility] 03-03-2022 10:26-0400 Heart rate 78 /min Mathieu Virgen MD Work Phone: [facility] 03-03-2022 10:26-0400 SaO2% (BldA) [Mass fraction] 95 % Mathieu Virgen MD Work Phone: [facility] 03-03-2022 10:26-0400 Systolic blood pressure 124 mm[Hg] Mathieu Virgen MD Work Phone: [facility] 03-02-2022 10:33-0400 Body mass index (BMI) [Ratio] 39.2 kg/m2 Dr. Mathieu Virgen Work Phone: [facility] Work Phone: 03-02-2022 10:33-0400 Body temperature 97.1 [degF] Dr. Mathieu Virgen Work Phone: [facility] Work Phone: 03-02-2022 10:33-0400 Body weight 134.[address] Mathieu Virgen Work Phone: [facility] Work Phone: 03-02-2022 10:33-0400 Diastolic blood pressure 52 mm[Hg] Dr. Mathieu iVrgen Work Phone: [facility] Work Phone: 03-02-2022 10:33-0400 Heart rate 83 /min Dr. Mathieu Virgen Work Phone: [facility] Work Phone: 03-02-2022 10:33-0400 Respiratory rate 17 /min Dr. Mathieu Virgen Work Phone: [facility] Work Phone: 03-02-2022 10:33-0400 SaO2% (BldA) [Mass fraction] 93 % Dr. Mathieu Virgen Work Phone: [facility] Work Phone: 03-02-2022 10:33-0400 Systolic blood pressure 100 mm[Hg] Dr. Mathieu Virgen Work Phone: [facility] Work Phone: 01-30-2022 11:26-0400 Body mass index (BMI) [Ratio] 40.7 kg/m2 Dr. Mathieu Virgen Work Phone: [facility] Work Phone: 01-30-2022 11:26-0400 Body temperature 97.9 [degF] Dr. Mathieu Virgen Work Phone: [facility] Work Phone: 01-30-2022 11:26-0400 Body weight 140.[address] Mathieu Virgen Work Phone: [facility] Work Phone: 01-30-2022 11:26-0400 Diastolic blood pressure 78 mm[Hg] Dr. Mathieu Virgen Work Phone: [facility] Work Phone: 01-30-2022 11:26-0400 Heart rate 83 /min Dr. Mathieu Virgen Work Phone: [facility] Work Phone: 01-30-2022 11:26-0400 Respiratory rate 22 /min Dr. Mathieu Virgen Work Phone: [facility] Work Phone: 01-30-2022 11:26-0400 SaO2% (BldA) [Mass fraction] 93 % Dr. Mathieu Virgen Work Phone: [facility] Work Phone: 01-30-2022 11:26-0400 Systolic blood pressure 126 mm[Hg] Dr. Mathieu Virgen Work Phone: [facility] Work Phone: 01-30-2022 11:26-0400 Body height 185.[address] Mathieu Virgen Work Phone: [facility] Work Phone: 01-30-2022 11:26-0400 Body mass index (BMI) [Ratio] 40.7 kg/m2 Dr. Mathieu Virgen Work Phone: [facility] Work Phone: 01-30-2022 11:26-0400 Body temperature 97.9 [degF] Dr. Mathieu Virgen Work Phone: [facility] Work Phone: 01-30-2022 11:26-0400 Body weight 140.[address] Mathieu Virgen Work Phone: [facility] Work Phone: 01-30-2022 11:26-0400 Diastolic blood pressure 78 mm[Hg] Dr. Mathieu Virgen Work Phone: [facility] Work Phone: 01-30-2022 11:26-0400 Heart rate 83 /min Dr. Mathieu Virgen Work Phone: [facility] Work Phone: 01-30-2022 11:26-0400 Respiratory rate 22 /min Dr. Mathieu Virgen Work Phone: [facility] Work Phone: 01-30-2022 11:26-0400 SaO2% (BldA) [Mass fraction] 93 % Dr. Mathieu Virgen Work Phone: [facility] Work Phone: 01-30-2022 11:26-0400 Systolic blood pressure 126 mm[Hg] Dr. Mathieu Virgen Work Phone: [facility] Work Phone: 01-27-2022 14:46-0400 Body temperature 97.9 [degF] Saad Xavier LABORER PETROLEUM REFINERY.PCU RN Work Phone: [facility] 01-27-2022 14:46-0400 Body weight 136.62 kg Saad Xavier LABORER [employer]RO[employer] RE[employer]ERY.PCU RN Work Phone: [facility] 01-27-2022 14:46-0400 Diastolic blood pressure 74 mm[Hg] Saad Xavier LABORER [employer]ROLE[employer] REFINERY.PCU RN Work Phone: [facility] 01-27-2022 14:46-0400 Heart rate 85 /min Saad Xavier LABORER [employer].PCU RN Work Phone: [facility] 01-27-2022 14:46-0400 Respiratory rate 18 /min Saad Xavier LABORER [employer]ROLE[employer] RE[employer]ERY.PCU RN Work Phone: [facility] 01-27-2022 14:46-0400 SaO2% (BldA) [Mass fraction] 95 % Saad Xavier LABORER [employer]ROLE[employer] REFINERY.PCU RN Work Phone: [facility] 01-27-2022 14:46-0400 Systolic blood pressure 128 mm[Hg] Saad Park APRN.[facility] Work Phone: [facility] 01-12-2022 14:41-0400 Diastolic blood pressure 75 mm[Hg] Kaitlyn Hern[facility]dez [facility] Work Phone: [facility] 01-12-2022 14:41-0400 Heart rate 74 /[facility] 01-12-2022 14:41-0400 Systolic blood pressure 132 mm[Hg] [facility] 11-30-2021 11:14-0400 Body mass index (BMI) [Ratio] 39.4 kg/m2 Dr. Mathieu Virgen Work Phone: [facility] Work Phone: 11-30-2021 11:14-0400 Body temperature 96.9 [degF] Dr. Mathieu Virgen Work Phone: [facility] Work Phone: 11-30-2021 11:14-0400 Body weight 135.[address] Mathieu Virgen Work Phone: [facility] Work Phone: 11-30-2021 11:14-0400 Diastolic blood pressure 76 mm[Hg] Dr. Mathieu Virgen Work Phone: [facility] Work Phone: 11-30-2021 11:14-0400 Heart rate 78 /min Dr. Mathieu Virgen Work Phone: [facility] Work Phone: 11-30-2021 11:14-0400 Respiratory rate 18 /min Dr. Mathieu Virgen Work Phone: [facility] Work Phone: 11-30-2021 11:14-0400 SaO2% (BldA) [Mass fraction] 92 % Dr. Mathieu Virgen Work Phone: [facility] Work Phone: 11-30-2021 11:14-0400 Systolic blood pressure 132 mm[Hg] Dr. Mathieu Virgen Work Phone: [facility] Work Phone: 11-10-2021 12:18-0500 Body weight 135.[address] Mathieu Virgen Work Phone: [facility] Work Phone: 11-10-2021 12:18-0500 Heart rate 81 /min Dr. Mathieu Virgen Work Phone: [facility] Work Phone: 11-10-2021 12:18-0500 SaO2% (BldA) [Mass fraction] 94 % Dr. Mathieu Virgen Work Phone: [facility] Work Phone: 10-26-2021 10:42-0500 Body mass index (BMI) [Ratio] 40.4 kg/m2 Dr. Mathieu Virgen Work Phone: [facility] Work Phone: 10-26-2021 10:42-0500 Body temperature 97.5 [degF] Dr. Mathieu Virgen Work Phone: [facility] Work Phone: 10-26-2021 10:42-0500 Body weight 135.[address] Mathieu Virgen Work Phone: [facility] Work Phone: 10-26-2021 10:42-0500 Diastolic blood pressure 79 mm[Hg] Dr. Mathieu Virgen Work Phone: [facility] Work Phone: 10-26-2021 10:42-0500 Heart rate 79 /min Dr. Mathieu Virgen Work Phone: [facility] Work Phone: 10-26-2021 10:42-0500 Respiratory rate 16 /min Dr. Mathieu Virgen Work Phone: [facility] Work Phone: 10-26-2021 10:42-0500 SaO2% (BldA) [Mass fraction] 94 % Dr. Mathieu Virgen Work Phone: [facility] Work Phone: 10-26-2021 10:42-0500 Systolic blood pressure 118 mm[Hg] Dr. Mathieu Virgen Work Phone: [facility] Work Phone: 10-24-2021 10:15-0500 Body mass index (BMI) [Ratio] 40.5 kg/m2 Dr. Mathieu Virgen Work Phone: [facility] Work Phone: 10-24-2021 10:15-0500 Body weight 135.[address] Mathieu Virgen Work Phone: [facility] Work Phone: 10-24-2021 10:15-0500 Diastolic blood pressure 65 mm[Hg] Dr. Mathieu Virgen Work Phone: [facility] Work Phone: 10-24-2021 10:15-0500 Heart rate 76 /min Dr. Mathieu Virgen Work Phone: [facility] Work Phone: 10-24-2021 10:15-0500 Respiratory rate 24 /min Dr. Mathieu Virgen Work Phone: [facility] Work Phone: 10-24-2021 10:15-0500 SaO2% (BldA) [Mass fraction] 95 % Dr. Mathieu Virgen Work Phone: [facility] Work Phone: 10-24-2021 10:15-0500 Systolic blood pressure 123 mm[Hg] Dr. Mathieu Virgen Work Phone: [facility] Work Phone: Encounters Encounter Date Encounter Type Care Provider Facility Start: 06-02-2025 ambulatory Eduardo Sweet Facility :[facility] Start: 05-04-2025 End: 05-04-2025 Patient encounter procedure Eduardo Sweet [facility] -[facility] Work Phone: Start: 05-04-2025 End: 05-04-[address] Mathieu Virgen MD Work Phone: -[facility] Start: 04-30-2025 Non-patient / Non-visit Dr. Edgar ryan MD -[facility] Start: 04-29-2025 End: 04-30-2025 ambulatory Yola Canales Facility:[facility] Start: 04-29-2025 End: 04-30-2025 Evaluation and management of inpatient Dr. Narda Prather DO -Progressive Care Unit Work Phone: Start: 04-29-2025 End: 04-30-[address] Mathieu Virgen MD Work Phone: -Progressive Care Unit Start: 04-08-2025 End: 04-08-[address] Mathieu Vigren MD Work Phone: -Laboratory Start: 04-08-2025 End: 04-08-2025 Patient encounter procedure SENIOR PROCESS ANALYST Megan Macario -Laboratory Work Phone: Start: 04-08-2025 End: 04-08-2025 Patient encounter procedure ARSALAN Macario -[facility] Work Phone: Start: 04-08-2025 End: 04-08-[address] Mathieu Virgen MD Work Phone: -[facility] Start: 04-08-2025 End: 04-08-2025 ambulatory Mathieu Virgen Facility:[facility] Start: 04-02-2025 End: 04-03-2025 Telephone encounter Mathieu Virgen MD Work Phone: [facility] Comment on above: Patient Assistance ( [employer] form for [employer]) Start: 04-01-2025 End: 04-01-[address] Mathieu Virgen MD Work Phone: -Cat Scan [facility] Start: 04-01-2025 End: 04-01-2025 Patient encounter procedure SENIOR PROCESS ANALYST Megan Macario -Cat Scan [facility] Work Phone: Start: 04-01-2025 End: 04-01-2025 ambulatory [facility] Facility:[facility] Start: 03-27-2025 End: 03-27-2025 ambulatory Mathieu Virgen MD Work Phone: [facility] Comment on above: New Pharmacy Refill Request; refi ll status Start: 03-02-2025 ambulatory [facility] Facility:[facility] Start: 03-02-2025 Non-patient / Non-visit Dr. Marvin Morse own DO -[facility] Start: 02-26-2025 End: 02-26-[address] Mathieu Virgen MD Work Phone: [facility] Work Phone: Start: 02-26-2025 End: 02-26-2025 Patient encounter procedure SENIOR PROCESS ANALYST Megan Macario -Pulmonary Services/Neurology Work Phone: Start: 02-26-2025 End: 02-26-2025 ambulatory [facility] Facility:[facility] Start: 02-11-2025 End: 02-11-2025 Telephone encounter Mathieu Virgen MD Work Phone: [facility] Comment on above: FYI-No Action Needed (Diabetes note sent to DME) Start: 02-06-2025 End: 05-01-2025 Telephone encounter Mathieu Virgen MD Work Phone: [facility] Comment on above: Results Start: 01-30-2025 End: 02-02-2025 Follow-up encounter Jamal Mace Work Phone: Podiatry Start: 01-30-2025 Non-patient / Non-visit Dr. Marvin Morse own DO -[facility] Start: 01-30-2025 End: 01-30-[address] 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) Start: 01-26-2025 End: 01-26-2025 ambulatory [facility] Facility:[facility] Start: 01-26-2025 End: 01-26-2025 Patient encounter procedure [facility] Work Phone: Start: 01-26-2025 End: 01-26-2025 ambulatory [facility] Facility:[facility] Start: 01-23-2025 End: 01-23-2025 ambulatory Mathieu Virgen MD Work Phone: [facility] Comment on above: labs Start: 01-23-2025 End: 01-23-2025 E-mail encounter from caregiver Mathieu Virgen MD Work Phone: [facility] Start: 01-22-2025 End: 01-22-2025 Subsequent hospital visit by physician Dominick [facility] Lisa Lang Work Phone: Radiology Comment on above: Closed fracture of f oot, unspecified laterality, initial encounter [S92.909A] Start: 01-22-2025 End: 01-22-2025 Patient encounter procedure Jamal Mace Work Phone: Podiatry Comment on above: Closed fracture of f oot, unspecified laterality, initial encounter Start: 01-22-2025 End: 01-22-2025 ambulatory [facility] Facility:[facility] Start: 01-22-2025 End: 01-22-2025 Telephone encounter Mathieu Virgen MD Work Phone: [facility] Start: 01-21-2025 End: 01-21-[address] Mathieu Virgen MD Work Phone: [facility] Work Phone: Start: 01-21-2025 End: 01-21-[address] Mathieu Virgen MD -Laboratory Work Phone: Start: 01-21-2025 End: 01-21-2025 Patient encounter procedure SENIOR PROCESS ANALYST Megan Macario -[facility] Work Phone: Start: 01-21-2025 End: 01-21-2025 ambulatory Megan Macario Facility:[facility] Start: 01-21-2025 End: 01-21-2025 ambulatory Mathieu Param Facility:[facility] Start: 01-19-2025 End: 01-20-2025 Emergency department patient visit Dr. Abraham Green -Emergency Department Work Phone: Start: 01-13-2025 End: 01-13-2025 Refill Mathieu Virgen MD Work Phone: [facility] Comment on above: Refill Request Start: 01-12-2025 End: 01-12-2025 Subsequent hospital visit by physician Dominick [facility] Lisa Work Phone: Radiology Comment on above: Contusion of left fo ot, subsequent encounter [S90.32XD] Start: 01-12-2025 End: 01-12-2025 Patient encounter procedure Mathieu Virgen MD Work Phone: [facility] Comment on above: Contusion of left fo ot, subsequent encounter (Primary Dx); Foot pain, left Start: 01-12-2025 End: 01-12-2025 ambulatory MATHIEU VIRGEN Facility:[facility] Start: 01-12-2025 End: 01-16-2025 Telephone encounter Mathieu Virgen MD Work Phone: [facility] Comment on above: Results Start: 12-11-2024 End: 12-11-[address] Devante Ponce MD -[facility] Work Phone: Start: 12-11-2024 End: 12-11-2024 ambulatory Mathieu Virgen Facility:[facility] Start: 12-03-2024 End: 12-04-2024 Telephone encounter Mathieu Virgen MD Work Phone: [facility] Comment on above: Insurance Authorizat ion Start: 12-02-2024 End: 12-02-2024 ambulatory MATHIEU VIRGEN Facility:[facility] Start: 12-02-2024 End: 12-02-2024 Patient encounter procedure Mathieu Virgen MD Work Phone: [facility] Comment on above: Acute diastolic CHF (congestive [...] Telephone encounter Mathieu Virgen MD Work Phone: [facility] Comment on above: Results Start: 11-28-2024 End: 11-28-[address] Mathieu Virgen MD Work Phone: [facility] Work Phone: Start: 11-28-2024 End: 11-28-[address] Mathieu Virgen MD -Laboratory Work Phone: Start: 11-27-2024 End: 11-27-2024 Telephone encounter Mathieu Virgen MD Work Phone: [facility] Comment on above: Orders Start: 11-27-2024 End: 11-28-[address] Mathieu Virgen MD Work Phone: [facility] Work Phone: Start: 11-27-2024 End: 11-27-[address] Mathieu Virgen MD -Laboratory Work Phone: Start: 11-26-2024 End: 11-27-2024 ambulatory Mathieu Virgen MD Work Phone: [facility] Start: 11-26-2024 End: 11-27-2024 Patient encounter procedure Mathieu Virgen MD Work Phone: [facility] Comment on above: Clinic Code Start: 11-26-2024 End: 11-26-2024 Telephone encounter Mathieu Virgen MD Work Phone: [facility] Comment on above: Medication Problem Start: 11-24-2024 End: 11-24-2024 Telephone encounter Mathieu Virgen MD Work Phone: [facility] [place] Comment on above: requesting medicatio n that is Start: 11-13-2024 End: 11-13-2024 ambulatory Mathieu Virgen MD Work Phone: [facility] Comment on above: Lab Work Start: 11-12-2024 End: 11-24-2024 Telephone encounter Mathieu Virgen MD Work Phone: [facility] Comment on above: Medication Question Start: 11-10-2024 End: 11-10-2024 Patient encounter procedure ARSALAN Macario -Sleep Lab Work Phone: Start: 11-10-2024 End: 11-10-2024 ambulatory Megan Macario Facility:[facility] Start: 11-03-2024 End: 11-03-2024 Emergency department patient visit Dr. Qasim Senior DO -Emergency Department Work Phone: Start: 10-31-2024 End: 10-31-2024 ambulatory MATHIEU VIRGEN Facility:[facility] Start: 10-31-2024 End: 10-31-2024 Patient encounter procedure Sukh Hall APRN.PCU RN Work Phone: [facility] Comment on above: Essential hypertensi on (Primary Dx); Paroxysmal atrial fibrillation (HCC); Dizziness; Systolic congestive heart failure, unspecified HF chronicity (HCC) Start: 10-31-2024 End: 10-31-2024 Telephone encounter [facility] Comment on above: Appointment Start: 10-23-2024 End: 10-23-2024 Patient encounter procedure SENIOR PROCESS ANALYST Megan Macario -Sleep Lab Work Phone: Start: 10-23-2024 End: 10-23-2024 ambulatory [facility] Facility:[facility] Start: 10-16-2024 End: 10-16-2024 Telephone encounter Mathieu Virgen MD Work Phone: [facility] Comment on above: Dexcom G7 sensors / issue Start: 10-08-2024 End: 10-09-2024 Refill Mathieu Virgen MD Work Phone: [facility] Comment on above: Refill Request Start: 10-07-2024 End: 10-07-2024 Patient encounter procedure Tierra KIRKPATRICK -Laboratory Work Phone: Start: 10-07-2024 End: 10-07-2024 ambulatory Tierra KIRKPATRICK Facility:[facility] Start: 09-23-2024 End: 09-23-2024 Patient encounter procedure Tierra KIRKPATRICK -[facility] Work Phone: Start: 09-23-2024 End: 09-23-2024 ambulatory [facility] Facility:[facility] Start: 09-23-2024 End: 09-23-2024 Office outpatient visit 15 minutes Denisha Shepard APRN.PCU RN Work Phone: [facility] Comment on above: Dizziness (Primary D x); Chest pain, unspecified type Start: 09-23-2024 End: 09-23-2024 ambulatory DENISHA SHEPARD Facility:[facility] Start: 09-22-2024 End: 09-23-2024 Telephone encounter Denisha Shepard APRN.PCU RN Work Phone: [facility] Comment on above: Patient Update; Appo intment Start: 09-20-2024 End: 09-20-2024 Emergency department patient visit Dr. Reji Smith MD -Emergency Department Work Phone: Start: 09-03-2024 End: 09-03-2024 Patient encounter procedure [facility]y [facility] Work Phone: Start: 09-03-2024 End: 09-03-2024 ambulatory [facility] Facility:[facility] Start: 09-02-2024 End: 09-02-2024 ambulatory Mathieu Virgen MD Work Phone: [facility] Comment on above: Constipation Start: 09-01-2024 End: 09-01-2024 Emergency department patient visit Mani Esquivel -Emergency Department Work Phone: Start: 08-25-2024 End: 08-25-2024 Patient encounter procedure SENIOR PROCESS ANALYST Megan Macario -Sleep Lab Work Phone: Start: 08-25-2024 End: 08-25-2024 ambulatory [facility] Facility:[facility] Start: 08-22-2024 End: 08-25-2024 Refill Julianna A Suppan LABORER PETROLEUM REFINERY.PCU RN Work Phone: [facility] Comment on above: Refill Request Start: 08-18-2024 End: 08-18-2024 Telephone encounter Mathieu Virgen MD Work Phone: [facility] Comment on above: Orders Start: 08-15-2024 End: 08-15-2024 Refill Julianna A Suppan LABORER [employer]ROLEUM REFINERY.PCU RN Work Phone: [facility] Comment on above: Refill Request CGM Order Start: 08-13-2024 End: 08-13-2024 Patient encounter procedure [facility]y [facility] Work Phone: Start: 08-13-2024 End: 08-13-2024 ambulatory [facility] Start: 08-11-2024 End: 08-11-2024 Patient encounter procedure Sergey H Roof SENIOR PROCESS ANALYST-C -Laboratory Work Phone: Start: 08-11-2024 End: 08-11-2024 Telephone encounter Mathieu Virgen MD Work Phone: [facility] Comment on above: Patient Update Start: 08-11-2024 End: 08-11-2024 [facility] Facility:[facility] Start: 08-05-2024 End: 08-08-2024 Nurse Triage Nurse Intm/Famp Triage [facility] Work Phone: Nurse Phone Triage Comment on above: Oxygen Order Request Scooter Start: 08-02-2024 End: 08-04-2024 ambulatory Mathieu Virgen MD Work Phone: [facility] Comment on above: Dexcom G7 CGM Start: 08-01-2024 End: 08-01-2024 Refill Mathieu Virgen MD Work Phone: [facility] Comment on above: Refill Request Start: 07-31-2024 End: 08-01-2024 Telephone encounter Julianna Hood LABORER PETROLEUM REFINERY.PCU RN Work Phone: [facility] Start: 07-31-2024 End: 07-31-2024 [facility] Facility:[facility] Start: 07-31-2024 End: 07-31-2024 ambulatory Julianna Hood Facility:[facility] Start: 07-29-2024 End: 07-29-2024 [facility] Start: 07-29-2024 End: 07-29-2024 Office outpatient visit 25 minutes Julianna Hood LABORER PETROLEUM REFINERY.PCU RN Work Phone: [facility] Comment on above: Type 2 diabetes debbie itus with microalbuminuria (HCC) (Primary Dx); Systolic congestive heart failure, unspecified HF chronicity (HCC); Essential hypertension; Paroxysmal atrial fibrillation (HCC); Restrictive lung disease; Schizophrenia, chronic condition (HCC); Chronic anticoagulation; Diastolic congestive heart failure, unspecified HF chronicity (HCC); Iron deficiency anemia, unspecified iron deficiency anemia type; Vitamin B12 deficiency Start: 07-28-2024 End: 07-28-2024 ambulatory Julianna Hood Facility:[facility] Start: 07-23-2024 ambulatory [facility] Start: 07-22-2024 ambulatory Sara Landry [facility] Start: 07-22-2024 End: 07-25-2024 Evaluation and management of inpatient [facility] Facility:[facility] Start: 07-10-2024 End: 07-10-2024 ambulatory [facility] Start: 07-10-2024 End: 07-11-2024 ambulatory [facility] Facility:[facility] Start: 07-09-2024 End: 07-09-2024 Refill Mathieu Virgen MD Work Phone: [facility] Comment on above: Refill Request Start: 07-08-2024 End: 07-08-2024 ambulatory [facility] Facility:[facility] Start: 07-04-2024 End: 07-04-2024 ambulatory [facility] Start: 07-04-2024 End: 07-04-2024 ambulatory [facility] Facility:[facility] Start: 06-24-2024 End: 06-24-2024 Emergency department patient visit [facility] Facility:[facility] Start: 06-23-2024 End: 06-23-2024 ambulatory ABRIL DUVAL Facility:[facility] Start: 06-23-2024 End: 06-23-2024 Patient encounter procedure Abril Duval LABORER PETROLEUM REFINERY.PCU RN Work Phone: Neurology Comment on above: Snoring (Primary Dx) ; Witnessed episode of apnea; Nocturnal leg movements; Frequent nocturnal awakening; Nocturia Start: 06-23-2024 End: 06-24-2024 Telephone encounter Mathieu Virgen MD Work Phone: [facility] Comment on above: Results Start: 06-20-2024 End: 06-20-2024 Refill Zoila Wright LABORER PETROLEUM REFINERY.PCU RN Work Phone: [facility] Comment on above: Refill Request Essential [...] Telephone encounter Mathieu Virgen MD Work Phone: [facility] Comment on above: Patient Question Start: 06-17-2024 End: 06-17-2024 Telephone encounter Mathieu Virgen MD Work Phone: [facility] Start: 06-16-2024 End: 06-16-2024 ambulatory Mathieu Virgen MD Work Phone: [facility] [place] Comment on above: Scooter Start: 06-11-2024 End: 06-11-2024 ambulatory MATHIEU VIRGEN Facility:[facility] Start: 06-08-2024 End: 06-09-2024 Refill Mathieu Virgen MD Work Phone: [facility] [place] Comment on above: Refill Request Start: 06-08-2024 End: 06-08-2024 Emergency department patient visit [facility] Facility:[facility] Start: 05-31-2024 End: 05-31-2024 Emergency department patient visit [facility] Facility:[facility] Start: 05-31-2024 End: 05-31-2024 ambulatory Narda Theodore RN NURSE MANAGER BOOKS Comment on above: Dizziness Start: 05-31-2024 End: 05-31-2024 Patient encounter procedure Amairani Mcclendon APRN.CNP Work Phone: [facility] Comment on above: Generalized weakness (Primary Dx) Start: 05-07-2024 End: 05-07-2024 Chart abstracting Mathieu Virgen MD Work Phone: [facility] Start: 05-05-2024 End: 05-05-2024 Refill Mathieu Virgen MD Work Phone: [facility] [place] Comment on above: Refill Request Start: 04-14-2024 Refill Mathieu Virgen MD Work Phone: [facility] Comment on above: Refill Request Start: 04-12-2024 End: 04-12-2024 Emergency department patient visit MELVIN BINGHAM Facility:[facility] Start: 04-11-2024 ambulatory Randi Turner RN NURSE MANAGER BOOKS Comment on above: Patient Update; Bloo d In Urine Encounter for medica l assessment (Primary Dx) Start: 04-11-2024 Patient encounter status Mariaelena Curry DO Work Phone: [facility] Work Phone: Start: 04-11-2024 Telemedicine consult ation with patient Mariaelena Curry DO Work Phone: [facility] Start: 04-10-2024 Refill Mathieu Virgen MD Work Phone: [facility] Comment on above: Refill Request Start: 04-09-2024 End: 04-09-2024 Office outpatient visit 15 minutes Andrew Guallpa LABORER PETROLEUM REFINERY.PCU RN Work Phone: [facility] Comment on above: Abrasion of left verma adry, initial encounter (Primary Dx) Start: 04-08-2024 ambulatory Mathieu Virgen MD Work Phone: [facility] [place] Comment on above: Scooter Start: 03-21-2024 ambulatory Vikas ruth PA-C Work Phone: [facility] [place] Comment on above: Test Results Start: 03-21-2024 Telephone encounter Vikas Travis PA-C Work Phone: [facility] [place] Start: 03-19-2024 Telephone encounter Vikas Travis PA-C Work Phone: [facility] [place] Comment on above: Results Start: 03-06-2024 Refill Zoila Wright LABORER PETROLEUM REFINERY.PCU RN Work Phone: [facility] Comment on above: Refill Request Start: 02-28-2024 End: 02-28-2024 Patient encounter procedure Vikas Travis CASIMIRO-C Work Phone: [facility] [place] Comment on above: 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); Venous incompetence; Bilateral leg edema; SOB (shortness of breath); Weight gain; CJ (obstructive sleep apnea); Hypersomnolence; Cushingoid facies Start: 02-12-2024 End: 02-12-2024 ambulatory Nurse Intm/Famp Triage [facility] Work Phone: Nurse Phone Triage Start: 02-12-2024 End: 02-12-2024 Telephone follow-up Nurse Intm/Famp Triage [facility] Work Phone: Nurse Phone Triage Comment on above: Follow Up Start: 02-10-2024 ambulatory Vikas ruth CASIMIRO-C Work Phone: [facility] Start: 02-10-2024 Follow-up encounter Vikas Travis CASIMIRO-C Work Phone: [facility] [place] Comment on above: Follow Up Weight Start: 02-04-2024 ambulatory Mathieu Virgen MD Work Phone: [facility] Comment on above: Edema Start: 02-04-2024 End: 02-04-2024 Subsequent hospital visit by physician Xr [facility] [place] Work Phone: Radiology Comment on above: SOB (shortness of br eath) [R06.02] Start: 02-04-2024 End: 02-04-2024 Patient encounter procedure Vikas Travis CASIMIRO-C Work Phone: [facility] Comment on above: SOB (shortness of br eath) (Primary Dx); Bilateral leg edema; Weight increase Start: 01-26-2024 ambulatory [facility] MD [facility] Comment on above: ACCU CHECK TEST STRI PS Start: 01-18-2024 Refill Pio Nicole MD Work Phone: [facility] Comment on above: Refill Request Famotidine Start: 01-09-2024 Refill Zoila Dejesus Kyle KAM Work Phone: [facility] Comment on above: Refill Request Start: 01-01-2024 ambulatory Mathieu Virgen MD Work Phone: [facility] Comment on above: Scooter Start: 01-01-2024 Telephone encounter Mathieu Virgen MD Work Phone: [facility] Comment on above: Epi man er Start: 12-30-2023 ambulatory Mathieu Virgen MD Work Phone: [facility] Comment on above: Scooter Start: 12-25-2023 End: 12-25-2023 Patient encounter procedure Mathieu Virgen MD Work Phone: [facility] Comment on above: Paroxysmal atrial fi brillation [...] 11-14-2023 Refill Mathieu Virgen MD Work Phone: [facility] Comment on above: Refill Request Medication Question Orders Start: 11-02-2023 Refill Vikas ruth PA-C Work Phone: [facility] Comment on above: Refill Request Start: 10-12-2023 Refill Mathieu Virgen MD Work Phone: [facility] Comment on above: Refill Request Start: 09-22-2023 End: 09-22-2023 Emergency department patient visit [facility] Work Phone: Start: 09-06-2023 End: 09-06-2023 Subsequent hospital visit by physician Xr [facility] Work Phone: Radiology Comment on above: Sinobronchitis [J32. 9, J40] Start: 09-06-2023 ambulatory Mathieu Virgen MD Work Phone: [facility] Comment on above: Coughing Up Blood Start: 08-27-2023 Refill Mathieu Virgen MD Work Phone: [facility] Comment on above: Refill Request Start: 08-07-2023 Telephone encounter Mathieu Virgen MD Work Phone: [facility] Comment on above: Patient Assistance ( [employer] (Basaglar and Humalog)) Start: 07-23-2023 End: 07-23-2023 Subsequent hospital visit by physician Xr [facility] Work Phone: Radiology Comment on above: Acute hip pain, righ t [M25.551] Start: 07-23-2023 End: 07-23-2023 Patient encounter procedure Pio Nicole MD Work Phone: [facility] Comment on above: Acute hip pain, righ t (Primary Dx) Start: 07-13-2023 Telephone encounter Mathieu Virgen MD Work Phone: [facility] Start: 07-11-2023 End: 07-11-2023 [facility] Start: 06-26-2023 End: 06-26-2023 ambulatory [facility] Work Phone: Start: 06-26-2023 End: 06-26-2023 Patient encounter procedure [facility] y, Specimen Work Phone: Start: 06-19-2023 Refill Mathieu Virgen MD Work Phone: [facility] Comment on above: Refill Request Start: 06-09-2023 ambulatory Adele murrieta RN NURSE MANAGER BOOKS Comment on above: Viral Syndrome Start: 06-09-2023 End: 06-09-2023 Subsequent hospital visit by physician Xr [facility] [place] Work Phone: Radiology Comment on above: Viral URI with cough [J06.9] Start: 06-09-2023 End: 06-09-2023 Patient encounter procedure Pio Nicole MD Work Phone: [facility] [place] Comment on above: Viral URI with cough (Primary Dx); Suspected COVID-19 virus infection; Bronchitis Start: 06-07-2023 Refill Mathieu Virgen MD Work Phone: [facility] [place] Comment on above: Refill Request Start: 06-06-2023 End: 06-06-2023 Patient encounter procedure Mathieu Virgen MD Work Phone: [facility] [place] Comment on above: Essential hypertensi on (Primary Dx); Encounter for immunization; Paroxysmal atrial fibrillation (HCC); Mixed hyperlipidemia; Schizophrenia, chronic condition (HCC); Chronic anticoagulation; Type 2 diabetes mellitus with microalbuminuria, with long-term current use of insulin (HCC); Restrictive lung disease Start: 06-04-2023 Telephone encounter Mathieu Virgen MD Work Phone: [facility] [place] Comment on above: patient question/lab s Start: 05-18-2023 End: 05-18-2023 Patient encounter procedure Vikas Travis PA-C Work Phone: [facility] [place] Comment on above: Near syncope (Primar y Dx); Fall, initial encounter; Acute upper respiratory infection; Morbid obesity (HCC) Start: 05-16-2023 Refill Mathieu Virgen MD Work Phone: [facility] [place] Comment on above: Refill Request Start: 05-11-2023 Telephone encounter Mathieu Virgen MD Work Phone: [facility] Comment on above: Forms Start: 05-01-2023 End: 05-01-2023 Patient encounter procedure Vikas Travis PA-C Work Phone: [facility] [place] Comment on above: Encounter for post s urgical wound check (Primary Dx) Start: 04-30-2023 End: 04-30-2023 Patient encounter procedure Vikas Travis PA-C Work Phone: [facility] [place] Comment on above: Inflamed acrochordon (Primary Dx); Seborrheic keratoses, inflamed Start: 04-26-2023 ambulatory Mathieu Virgen MD Work Phone: [facility] Comment on above: Skin Tags Removal Start: 04-12-2023 Refill Mathieu Virgen MD Work Phone: [facility] Comment on above: Refill Request Start: 03-31-2023 End: 03-31-2023 Emergency department patient visit Dr. Mathieu Virgen Work Phone: [facility] Work Phone: Start: 03-19-2023 ambulatory Mathieu Virgen MD Work Phone: [facility] Start: 03-19-2023 Patient encounter procedure Shannon Virgen MD Work Phone: [facility] Comment on above: Appointment Start: 03-05-2023 End: 03-05-2023 Office outpatient visit 15 minutes Andrew Guallpa APRN.CNP Work Phone: [facility] Comment on above: Acute constipation ( Primary Dx) Start: 03-02-2023 End: 03-02-2023 Patient encounter procedure Mathieu Virgen MD Work Phone: [facility] Comment on above: Nausea (Primary Dx); Hypoglycemia; Type 2 diabetes mellitus with microalbuminuria, with long-term current use of insulin (HCC); Leukocytosis, unspecified type; Abnormal serum level of lipase; Benign prostatic hyperplasia with lower urinary tract symptoms, symptom details unspecified; Urinary retention Start: 03-01-2023 End: 03-01-2023 Emergency department patient visit Dr. Mathieu Virgen Work Phone: [facility] Start: 03-01-2023 End: 03-01-[address] [facility] Start: 02-24-2023 End: 02-25-2023 Emergency department patient visit Dr. Mathieu Virgen Work Phone: [facility] Start: 02-22-2023 Refill Mathieu Virgen MD Work Phone: [facility] [place] Comment on above: Refill Request (medi cation question ) Start: 02-16-2023 End: 02-16-2023 Subsequent hospital visit by physician Dominick [facility] [place] Work Phone: Radiology Comment on above: Acute left ankle stone n [M25.572] Start: 02-16-2023 End: 02-16-2023 Office outpatient visit 15 minutes Denisha Shepard APRN.PCU RN Work Phone: [facility] [place] Comment on above: Acute left ankle stone n (Primary Dx) Start: 02-16-2023 Telephone encounter Denisha hess APRN.PCU RN Work Phone: [facility] [place] Comment on above: Results Start: 02-16-2023 Unlisted evaluation and management service Denisha Shepard APRN.PCU RN Work Phone: [facility] [place] Comment on above: Opened In Error Start: 02-14-2023 End: 02-14-2023 Nursing evaluation of patient and report Nurse Jerilyn [facility] Work Phone: General Surgery Comment on above: Lesion of subcutaneo us tissue (Primary Dx) Start: 01-19-2023 End: 01-19-2023 Patient encounter procedure Mathieu Virgen MD Work Phone: [facility] [place] Comment on above: Skin mass (Primary D x) Start: 11-29-2022 End: 11-29-2022 Patient encounter procedure Mathieu Virgen MD Work Phone: [facility] [place] Comment on above: Chest pain, unspecif ied type (Primary Dx); Leukocytosis, unspecified type; Type 2 diabetes mellitus with microalbuminuria, with long-term current use of insulin (HCC); Schizophrenia, chronic condition (HCC); Paroxysmal atrial fibrillation (HCC); Essential hypertension; Pure hypercholesterolemia Start: 11-25-2022 Telephone encounter Mathieu Virgen MD Work Phone: [facility] [place] Comment on above: Orders Start: 11-22-2022 Patient Outreach Mathieu perez MD Work Phone: [facility] Comment on above: Transition Of Care ( [facility] 11/21-11/21 dx: chest pain) Start: 11-21-2022 Non-patient / Non-visit Dr. Shannon Virgen Work Phone: [facility] Start: 11-21-2022 Non-patient / Non-visit Dr. Shannon Virgen Work Phone: [facility] Start: 11-21-2022 End: 11-21-2022 Evaluation and management of inpatient Dr. Mathieu Virgen Work Phone: [facility] Start: 11-21-2022 End: 11-21-[address] Mathieu Virgen Work Phone: [facility] Work Phone: Start: 11-20-2022 End: 11-21-2022 Emergency department patient visit Dr. Mathieu Virgen Work Phone: [facility] Start: 11-10-2022 Refill Mathieu Virgen MD Work Phone: [facility] Comment on above: Refill Request Start: 10-26-2022 Telephone encounter Kaitlyn perez [facility] Work Phone: [facility] Comment on above: Medication Question Start: 10-26-2022 End: 10-26-[address] Mathieu Virgen Work Phone: [facility] Start: 10-16-2022 ambulatory Kaitlyn Hernández [facility] Work Phone: [facility] Comment on above: Touwilmer free trial ca rd Start: 10-16-2022 E-mail encounter fro m caregiver Kaitlyn Hernández [facility] Work Phone: [facility] Start: 10-16-2022 Telephone encounter Kaitlyn perez [facility] Work Phone: [facility] Comment on above: Medication Question Start: 10-03-2022 Refill Mathieu Virgen MD Work Phone: [facility] Comment on above: Refill Request Start: 09-29-2022 Telephone encounter Kaitlyn perez [facility] Work Phone: [facility] Comment on above: Medication Question Start: 09-25-2022 Telephone encounter Mathieu Virgen MD Work Phone: [facility] Comment on above: [employer] Forms for Insulin Start: 08-21-2022 Refill Mathieu Virgen MD Work Phone: [facility] Comment on above: Refill Request Start: 08-08-2022 End: 08-08-2022 Emergency department patient visit Dr. Mathieu Virgen Work Phone: [facility] Start: 08-07-2022 ambulatory Mathieu Virgen MD Work Phone: [facility] Comment on above: Insulin Needle broke in stomach Start: 06-22-2022 Telephone encounter Kaitlyn Weaver ana [facility] Work Phone: [facility] Comment on above: Forms (Jardireynaldo pat ient assistance application) Start: 06-22-2022 End: 06-22-2022 Patient encounter procedure Kaitlyn Hernández [facility] Work Phone: [facility] Comment on above: Type 2 diabetes debbie itus without complication, with long-term current use of insulin (HCC) (Primary Dx) Start: 05-31-2022 End: 05-31-2022 Patient encounter procedure Mathieu Virgen MD Work Phone: [facility] Comment on above: Essential hypertensi on (Primary Dx); Paroxysmal atrial fibrillation (HCC); Pure hypercholesterolemia; Type 2 diabetes mellitus with microalbuminuria, with long-term current use of insulin (HCC); Chronic anticoagulation; Monocytosis; Need for influenza vaccination Start: 05-08-2022 Refill Mathieu Virgen MD Work Phone: [facility] Comment on above: Refill Request Start: 05-04-2022 End: 05-04-[address] Mathieu Virgen Work Phone: [facility] Start: 04-08-2022 End: 04-08-2022 Emergency department patient visit Dr. Mathieu Virgen Work Phone: [facility] Start: 04-08-2022 End: 04-08-2022 Patient encounter procedure Andrew Castellanoscollette KAM Work Phone: [facility] Comment on above: Chest pain, unspecif ied type (Primary Dx); Accidental medication error, initial encounter Start: 03-23-2022 Telephone encounter Kaitlyn Weaver ana [facility] Work Phone: [facility] Comment on above: Forms (Basaglar PAP) Start: 03-23-2022 End: 03-23-2022 Patient encounter procedure Kaitlyn Hernández [facility] Work Phone: [facility] Comment on above: Type 2 diabetes debbie itus without complication, with long-term current use of insulin (HCC) (Primary Dx); Essential hypertension Start: 03-06-2022 Telephone encounter Mathieu Virgen MD Work Phone: [facility] Comment on above: Forms (S[employer] Cares a pplication) Medication Question Start: 03-03-2022 End: 03-03-2022 Patient encounter procedure Mathieu Virgen MD Work Phone: [facility] Comment on above: Essential hypertensi on (Primary Dx); Pure hypercholesterolemia; Paroxysmal atrial fibrillation (HCC); Type 2 diabetes mellitus with microalbuminuria, with long-term current use of insulin (HCC); Chronic anticoagulation; Need for hepatitis C screening test Start: 03-02-2022 End: 03-02-[address] [facility] Start: 02-09-2022 Telephone encounter Mathieu Virgen MD Work Phone: [facility] Comment on above: indigent med Start: 02-07-2022 End: 02-07-[address] Mathieu Virgen Work Phone: [facility] Start: 02-06-2022 Telephone encounter Mathieu Virgen MD Work Phone: [facility] Comment on above: Patient Request Start: 02-03-2022 End: 02-03-2022 Patient encounter procedure Papito Castano DO Work Phone: [facility] Comment on above: Gastrocnemius tear, right, initial encounter (Primary Dx) Start: 02-02-2022 Refill Mathieu Virgen MD Work Phone: [facility] Comment on above: Refill Request Start: 02-01-2022 Refill Mathieu Virgen MD Work Phone: [facility] Comment on above: Refill Request (michael ent assistance ) Start: 01-31-2022 Refill Mathieu Virgen MD Work Phone: [facility] Comment on above: Prescription Refills Start: 01-30-2022 End: 01-30-[address] Mathieu Virgen Work Phone: [facility] Start: 01-27-2022 End: 01-27-2022 Patient encounter procedure Saad Park NEGIN Work Phone: [facility] Comment on above: Strain of calf muscl e, right, initial encounter (Primary Dx) Start: 01-12-2022 End: 01-12-2022 Patient encounter procedure Kaitlyn Hernández [facility] Work Phone: [facility] Comment on above: Type 2 diabetes debbie itus without complication, with long-term current use of insulin (HCC) (Primary Dx) Refill Request Start: 12-30-2021 Telephone encounter Mathieu Virgen MD Work Phone: [facility] Comment on above: Medication Problem Start: 12-29-2021 Refill Mathieu Virgen MD Work Phone: [facility] Comment on above: Refill Request Start: 12-15-2021 Telephone encounter Kaitlyn Weaver [facility] Work Phone: [facility] Comment on above: Forms (Jardiance PAP ) Start: 12-13-2021 Telephone encounter Mathieu Virgen MD Work Phone: [facility] Comment on above: Medication Problem Start: 12-12-2021 Refill Mathieu Virgen MD Work Phone: [facility] Comment on above: Refill Request Start: 11-30-2021 End: 11-30-2021 Patient encounter procedure Dr. Mathieu Virgen Work Phone: [facility] Start: 11-11-2021 Non-patient / Non-visit Dr. Shannon Virgen Work Phone: [facility] Start: 11-10-2021 End: 11-10-[address] [facility] Start: 11-09-2021 Non-patient / Non-visit Dr. Shannon Virgen Work Phone: [facility] Start: 11-09-2021 End: 11-09-[address] Mathieu [facility] Start: 11-01-2021 End: 11-01-[address] Mathieu Virgen Work Phone: [facility] Start: 10-24-2021 End: 10-24-[address] Mathieu Virgen Work Phone: [facility] Start: 07-13-2021 End: 07-13-2021 Subsequent hospital visit by physician Xr [facility] Work Phone: Radiology Comment on above: SOB (shortness of br eat) [R06.02] Start: 05-25-2021 End: 05-25-2021 Subsequent hospital visit by physician Xr [facility] Work Phone: Radiology Comment on above: phone apt Start: 01-24-2021 End: 01-24-2021 Subsequent hospital visit by physician Xr [facility] Work Phone: Radiology Comment on above: SOB (shortness of br eath) [R06.02] Procedures Date Procedure Procedure Detail Performing Clinician Start: 04-30-[address] Mathieu Virgen MD Work Phone: Start: 04-30-2025 Serum inorganic phos phate measurement Dr. Mathieu Virgen MD Work Phone: Start: 04-30-2025 Urnls dip stick/tabl et reagent auto microscopy Dr. Mathieu Virgen MD Work Phone: Start: 04-29-2025 Cardiovascular stres s test using pharmacologic stress agent Dr. Mathieu Virgen MD Work Phone: Start: 04-29-2025 CT angiography of ch est with contrast Dr. Mathieu Virgen MD Work Phone: Start: 04-29-[address] Mathieu Virgen MD Work Phone: Start: 04-08-[address] Louis Virgen MD Work Phone: Comment on above: Performed at: [place] [id number] Director: Naresh Pruitt PhD, Phone: [phone] Start: 04-08-[address] Roxanna Virgen [...] on above: Test not performed Start: 04-08-2025 RADIOLOG[address] MANAGER antibody measurement Dr. Mathieu Virgen MD Work [...] 11-28-2024 Urine microalbumin/creatinine ratio measurement Dr. Mathieu Virgen MD Work Phone: Start: 10-07-2024 Measurement of [...] 02-04-2024 Radiologic exam ches t 2 views Vikas Kelvin Travis PA-C Work Phone: Start: 02-04-2024 Ecg routine ecg w/le ast 12 lds i&r only M Kelvin Travis PA-C Work Phone: Start: 12-25-2023 Adult depression screening assessment Mathieu Virgen MD Work Phone: Start: 09-22-2023 Plain chest X-ray Start: 09-06-2023 Radiologic exam ches t 2 views Anum Cheung [employer].PCU RN Work Phone: Start: 07-23-2023 Radex hip unilateral [...] ankle complete minimum 3 views Denisha Shepard [employer].PCU RN Work Phone: Start: 11-21-2022 Cardiovascular stres s [...] exam ches t 2 views Fito Membreno [employer].PCU RN, DNP Work Phone: Start: 07-16-2018 Adult depression screening assessment Mathieu Virgen MD Work Phone: H/O: surgery H/O wrist surgery Dr. Judi Virgen Work Phone: Laboratory test resu lt abnormal Abnormal serum level of lipase Mathieu Virgen MD Work Phone: Plan of Treatment Date Care Activity Detail Author Start: 01-26-2026 Annual PCP Team Chronic Disease Visit Annual PCP Team Chronic Disease Visit [facility] Start: 01-26-2026 BP Controlled (<130/80) BP Controlled (<130/80) [facility] Start: 01-12-2026 Annual PCP Team Chronic Disease Visit Annual PCP Team Chronic Disease Visit [facility] Start: 01-12-2026 BP Controlled (<130/80) BP Controlled (<130/80) [facility] Start: 12-02-2025 Annual PCP Team Chronic Disease Visit Annual PCP Team Chronic Disease Visit [facility] Start: 12-02-2025 Anxiety Screening Anxiety Screening [facility] Start: 12-02-2025 BP Controlled (<130/80) BP Controlled (<130/80) [facility] Start: 12-02-2025 Depression Screening Depression Screening [facility] Start: 12-02-2025 RSV Vaccine (1 - 1-dose 75+ series) RSV Vaccine (1 - 1-dose 75+ series) [facility] Comment on above: Postponed from 2019 (Declined at t his time) Start: 10-31-2025 Annual PCP Team Chronic Disease Visit Annual PCP Team Chronic Disease Visit [facility] Start: 10-31-2025 BP Controlled (<130/80) BP Controlled (<130/80) [facility] Start: 09-23-2025 Annual PCP Team Chronic Disease Visit Annual PCP Team Chronic Disease Visit [facility] Start: 09-23-2025 BP Controlled (<130/80) BP Controlled (<130/80) [facility] in Start: 07-29-2025 BP Controlled (<130/80) BP Controlled (<130/80) [facility] Start: 07-08-2025 Measurement of respiratory function [facility] Start: 06-20-2025 Annual PCP Team Chronic Disease Visit Annual PCP Team Chronic Disease Visit [facility] Start: 06-20-2025 Covid-19 Vaccine ( season) Covid-19 Vaccine ( season) [facility] Comment on above: Postponed from 05/18/2024 (Declined at t his time) Start: 06-20-2025 Diabetic foot examination Diabetic Foot Exam [facility] Start: 06-20-2025 Glaucoma screening Dilated Retinal Exam [facility] Start: 06-20-2025 Shingrix Vaccine (1 of 2) Shingrix Vaccine (1 of 2) [facility] Comment on above: Postponed from 1994 (Declined at t his time) Start: 06-20-2025 Urine microalbumin profile DTaP,Tdap,Td Vaccine (1 - Tdap) [facility] Comment on above: Postponed from 1963 (Declined at t his time) Start: 05-18-2025 Influenza vaccination Influenza Vaccine (#1) [facility] Start: 05-13-2025 End: 08-12-2025 Hemoglobin A1c in Blood HEMOGLOBIN A1C Lab Routine 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) Essential hypertension Expected: 05/13/2025, Expires: 08/12/2025 [facility] Comment on above: Expected: 05/13/2025, Expires: Start: 05-04-2025 Evaluation of diagnostic study results [facility] Start: 04-30-2025 Patient discharge [facility] Start: 04-30-2025 Consultation [facility] Start: 04-29-2025 Assessment of risk of venous thromboembolism [facility] Start: 04-29-2025 Care regimes management [facility] Start: 04-29-2025 Incentive spirometry [facility] Start: 04-29-2025 Insertion of catheter into peripheral vein [facility] Start: 04-29-2025 Measuring intake and output [facility] Start: 04-29-2025 Notification of physician [facility] Start: 04-29-2025 Oxygen therapy [facility] Start: 04-29-2025 Providing care according to standard [facility] Start: 04-29-2025 Provision of activity privileges [facility] Start: 04-29-2025 Referral to occupational therapist [facility] Start: 04-29-2025 Referral to service [facility] Start: 04-29-2025 End: 04-29-2025 [facility] Start: 04-29-2025 Following clinical pathway protocol [facility] Start: 04-29-2025 [facility] Start: 04-29-2025 Cardiovascular stress test using pharmacologic stress agent Nuclear Stress Test - Chemical [facility] Start: 04-29-2025 Urinalysis complete panel - Urine [facility] Start: 04-29-2025 Verification routine [facility] Start: 04-29-2025 Admission procedure [facility] Start: 04-29-2025 Hospital admission, emergency, from emergency room, medical nature [facility] Start: 04-29-2025 [facility] Start: 02-27-2025 Annual PCP Team Chronic Disease Visit Annual PCP Team Chronic Disease Visit [facility] Start: 02-26-2025 Walking distance 6 minutes [facility] Start: 02-03-2025 Annual PCP Team Chronic Disease Visit Annual PCP Team Chronic Disease Visit [facility] Start: 02-03-2025 BP Controlled (<130/80) BP Controlled (<130/80) [facility] in Start: 01-26-2025 End: 01-26-2025 Patient encounter procedure 01/26/2025 2:40 PM EDT Office Visit [facility] [place] [address] [place] [address] Mathieu Virgen MD [address] [place] [address] Blood sugar regulation, blood pressure not too low [facility] Sumeet Gonzalez Comment on above: Blood sugar regulation, blood pressure n ot too low Start: 01-22-2025 End: 01-22-2025 Patient encounter procedure 01/22/2025 3:15 PM EDT Office Visit Podiatry [address] [place] [address] Jamal Mace [address] [place] [address] left foot fracture Podiatry Comment on above: left foot fracture Start: 01-20-2025 [facility] Start: 01-19-2025 [facility] Start: 12-24-2024 Annual PCP Team Chronic Disease Visit Annual PCP Team Chronic Disease Visit [facility] Start: 12-24-2024 Anxiety Screening Anxiety Screening [facility] Start: 12-24-2024 Covid-19 Vaccine () Covid-19 Vaccine () [facility] Comment on above: Postponed from 05/18/2023 (Declined at t his time) Start: 12-24-2024 Depression Screening Depression Screening [facility] Start: 12-19-2024 End: 12-19-2024 Patient encounter procedure 12/19/2024 1:40 PM EDT Office Visit [facility] Sumeet Gonzalez [address] [place] [address] Mathieu Virgen MD [address] [facility] [place] [place] [address] 6 mo follow up [facility] Sumeet Gonzalez Comment on above: 6 mo follow up Start: 12-09-2024 Hemoglobin A1c measurement HbA1C [facility] Start: 12-02-2024 End: 12-02-2024 Patient encounter procedure 12/02/2024 3:40 PM EDT Office Visit [facility] Sumeet Gonzalez [address] [facility] [place] [address] Mathieu Virgen MD [address] [place], [place] [address] All lab results Family Sumeet Gonzalez Comment on above: All lab results Start: 12-02-2024 End: 03-03-2025 CBC W Ordered Manual Differential panel - Blood PATHOLOGIST INTERPRETATION WITH CBC AND DIFF Lab Routine Leukocytosis, unspecified type Expected: 12/02/2024, Expires: 03/03/2025 [facility] Work Phone: Comment on above: Expected: 12/02/2024, Expires: Start: 11-27-2024 End: 02-26-2025 CBC panel - Blood by Automated count COMPLETE BLOOD COUNT Lab Routine 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) Expected: 11/27/2024, Expires: 02/26/2025 [facility] Comment on above: Expected: 11/27/2024, Expires: Start: 11-27-2024 End: 02-26-2025 Comprehensive metabolic 2000 panel - Serum or Plasma COMPREHENSIVE METABOLIC PANEL Lab Routine 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) Expected: 11/27/2024, Expires: 02/26/2025 [facility] Comment on above: Expected: 11/27/2024, Expires: Start: 11-27-2024 End: 02-26-2025 Hemoglobin A1c in Blood HEMOGLOBIN A1C Lab Routine 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) Expected: 11/27/2024, Expires: 02/26/2025 [facility] Comment on above: Expected: 11/27/2024, Expires: Start: 11-27-2024 Hepatitis B screening Urine Albumin:Creatinine Ratio [facility] Start: 11-27-2024 Hepatitis B surface antibody level LDL Cholesterol [facility] Start: 11-27-2024 End: 02-26-2025 Lipid 1996 panel - Serum or Plasma LIPID PANEL BASIC Lab Routine Nonobstructive atherosclerosis of coronary artery Pure hypercholesterolemia Expected: 11/27/2024, Expires: 02/26/2025 [facility] Work Phone: Comment on above: Expected: 11/27/2024, Expires: Start: 11-27-2024 End: 02-26-2025 Microalbumin/Creatinine [Mass Ratio] in Urine ALBUMIN/CREATININE RATIO, URINE Lab Routine 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) Expected: 11/27/2024, Expires: 02/26/2025 [facility] Comment on above: Expected: 11/27/2024, Expires: Start: 11-13-2024 End: 02-12-2025 Basic metabolic 2000 panel - Serum or Plasma BASIC METABOLIC PANEL Lab Routine 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) Essential hypertension Expected: 11/13/2024, Expires: 02/12/2025 [facility] Comment on above: Expected: 11/13/2024, Expires: Start: 11-13-2024 End: 02-12-2025 CBC panel - Blood by Automated count COMPLETE BLOOD COUNT Lab Routine 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) Essential hypertension Expected: 11/13/2024, Expires: 02/12/2025 [facility] Work Phone: Comment on above: Expected: 11/13/2024, Expires: Start: 11-13-2024 End: 02-12-2025 Magnesium [Mass/volume] in Serum or Plasma MAGNESIUM Lab Routine 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) Essential hypertension Expected: 11/13/2024, Expires: 02/12/2025 [facility] Comment on above: Expected: 11/13/2024, Expires: Start: 11-07-2024 Hemoglobin A1c measurement HbA1C [facility] Start: 11-03-2024 [facility] Start: 10-31-2024 End: 10-31-2024 Patient encounter procedure 10/31/2024 1:40 PM EST Office Visit [facility] [place] [address] [place] [address] Mathieu Virgen MD [address] [place] [address] 3 month f/u [facility] [place] Comment on above: 3 month f/u Start: 09-23-2024 Evaluation of diagnostic study results [facility] Start: 09-20-2024 [facility] Start: 09-20-2024 [facility] Start: 09-17-2024 Advance Directive Discussion Advance Directive Discussion [facility] Start: 09-17-2024 Medicare Advantage Annual Wellness Visit Medicare Advantage Annual Wellness Visit [facility] Start: 09-06-2024 Annual PCP Team Chronic Disease Visit Annual PCP Team Chronic Disease Visit [facility] Start: 09-06-2024 BP Controlled (<130/80) BP Controlled (<130/80) [facility] Start: 09-06-2024 RSV Vaccine (1 - 1-dose 60+ series) RSV Vaccine (1 - 1-dose 60+ series) [facility] Comment on above: Postponed from 2004 (Declined at t his time) Start: 09-06-2024 RSV Vaccine (1 - 1-dose 75+ series) RSV Vaccine (1 - 1-dose 75+ series) [facility] Comment on above: Postponed from 2019 (Declined at t his time) Start: 09-01-2024 [facility] Start: 07-29-2024 End: 10-28-2024 Basic metabolic 2000 panel - Serum or Plasma BASIC METABOLIC PANEL Lab Routine Systolic congestive heart failure, unspecified HF chronicity (HCC) Expected: 07/29/2024, Expires: 10/28/2024 [facility] Work Phone: Comment on above: Expected: 07/29/2024, Expires: Start: 07-29-2024 End: 10-28-2024 CBC W Auto Differential panel - Blood COMPLETE BLOOD COUNT AND DIFFERENTIAL Lab Routine Systolic congestive heart failure, unspecified HF chronicity (HCC) Expected: 07/29/2024, Expires: 10/28/2024 [facility] Comment on above: Expected: 07/29/2024, Expires: Start: 07-29-2024 End: 10-28-2024 Magnesium [Mass/volume] in Serum or Plasma MAGNESIUM Lab Routine Systolic congestive heart failure, unspecified HF chronicity (HCC) Expected: 07/29/2024, Expires: 10/28/2024 [facility] Comment on above: Expected: 07/29/2024, Expires: Start: 07-25-2024 End: 07-25-2024 ambulatory 07/25/2024 1:15 PM EST Results Only [facility] [address] [place], [place] [id number] Labs [facility] Comment on above: Labs Start: 07-23-2024 Annual PCP Team Chronic Disease Visit Annual PCP Team Chronic Disease Visit [facility] Start: 07-23-2024 BP Controlled (<130/80) BP Controlled (<130/80) [facility] Start: 06-25-2024 End: 09-24-2024 Comprehensive metabolic 2000 panel - Serum or Plasma COMP METABOLIC PANEL Lab Routine Psoriatic arthritis (HCC) Expected: 06/25/2024, Expires: 09/24/2024 [facility] Work Phone: Comment on above: Expected: 06/25/2024, Expires: Start: 06-25-2024 End: 09-24-2024 Hemoglobin A1c in Blood HGB A1C Lab Routine Type 2 diabetes mellitus without complication, with long-term current use of insulin ([facility]) Expected: 06/25/2024, Expires: 09/24/2024 [facility] Work Phone: Comment on above: Expected: 06/25/2024, Expires: Start: 06-23-2024 End: 06-23-2024 Patient encounter procedure 06/23/2024 2:30 PM EDT Office Visit Neurology [address] [place], [place] [id number] Abril Duval APRN.PCU RN [address] [place] [address] CJ (obstructive sleep apnea) [G47.33] Neurology Comment on above: CJ (obstructive sleep apnea) [G47.33] Start: 06-20-2024 End: 06-20-2024 Patient encounter procedure 06/20/2024 3:40 PM EDT Office Visit [facility] [place] [address] [place], [place] [id number] Mathieu Virgen MD [address] [place], [place] [id number] Blood sugar levels [facility] [place] Comment on above: Blood sugar levels Start: 06-20-2024 End: 09-19-2024 25-hydroxyvitamin D3 [Mass/volume] in Serum or Plasma [facility] Work Phone: Comment on above: Expected: 06/20/2024, Expires: Start: 06-20-2024 End: 09-19-2024 CBC W Auto Differential panel - Blood [facility] Comment on above: Expected: 06/20/2024, Expires: Start: 06-20-2024 End: 09-19-2024 Creatine kinase [Enzymatic activity/volume] in Serum or Plasma [facility] Comment on above: Expected: 06/20/2024, Expires: Start: 06-20-2024 End: 09-19-2024 Thyrotropin [Units/volume] in Serum or Plasma [facility] Comment on above: Expected: 06/20/2024, Expires: Start: 06-18-2024 Glaucoma screening Dilated Retinal Exam [facility] Start: 06-09-2024 Annual PCP Team Chronic Disease Visit Annual PCP Team Chronic Disease Visit [facility] Start: 06-09-2024 BP Controlled (<130/80) BP Controlled (<130/80) [facility] Start: 06-06-2024 3 comp foot exam completed Diabetic Foot Exam [facility] Start: 06-06-2024 Annual PCP Team Chronic Disease Visit Annual PCP Team Chronic Disease Visit [facility] Start: 06-06-2024 Diabetic foot examination Diabetic Foot Exam [facility] Start: 06-06-2024 Hepatitis B Vaccine (1 of 3 - Risk 3-dose series) Hepatitis B Vaccine (1 of 3 - Risk 3-dose series) [facility] Comment on above: Postponed from 2004 (Declined at t his time) Start: 05-18-2024 ANNUAL PCP TEAM CHRONIC DISEASE VISIT ANNUAL PCP TEAM CHRONIC DISEASE VISIT [facility] Start: 05-18-2024 BP CONTROLLED (<130/80) BP CONTROLLED (<130/80) [facility] Start: 05-18-2024 Covid-19 Vaccine () Covid-19 Vaccine () [facility] Start: 05-18-2024 Covid-19 Vaccine ( season) Covid-19 Vaccine () [facility] Start: 05-18-2024 Influenza vaccination Influenza Vaccine (#1) [facility] Start: 05-01-2024 ANNUAL PCP TEAM CHRONIC DISEASE VISIT ANNUAL PCP TEAM CHRONIC DISEASE VISIT [facility] Start: 05-01-2024 BP CONTROLLED (<130/80) BP CONTROLLED (<130/80) [facility] Start: 04-30-2024 COVID-19 VACCINE (#1) COVID-19 VACCINE (#1) [facility] Comment on above: Postponed from 1944 (Declined at t his time) Start: 04-30-2024 SHINGRIX VACCINE (1 of 2) SHINGRIX VACCINE (1 of 2) [facility] Comment on above: Postponed from 1994 (Insurance Cov erage) Start: 04-30-2024 Urine microalbumin profile [facility] Comment on above: Postponed from 1963 (Insurance Cov erage) Start: 04-30-2024 End: 04-30-2024 ambulatory 04/30/2024 9:45 AM EDT OT/PT/Speech Visit [facility] [address] [place] [address] Rosa Orta, PT Venous incompetence [I87.2] [facility] Comment on above: Venous incompetence [I87.2] Start: 04-14-2024 End: 04-14-2024 Patient encounter procedure 04/14/2024 1:40 PM EDT Office Visit [facility] [place] [address] [place] [address] Julianna Hood APRN.PCU RN [address] [place], [place] [address] Blood in Urine [facility] [place] Comment on above: Blood in Urine Start: 04-10-2024 End: 04-10-2024 Patient encounter procedure 04/10/2024 11:40 AM EDT Office Visit [facility] [place] [address] [place] [address] Vikas Travis PA-C [address] [address] 6 week f/u [facility] [place] Comment on above: 6 week f/u Start: 03-19-2024 End: 03-19-2024 Patient encounter procedure 03/19/2024 12:30 PM EDT Office Visit Vasculary Surgery [address] [place] [address] 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, 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]; Venous incompetence [I87.2] [facility] Comment on above: 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, 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]; Venous incompetence [I87.2] Start: 03-17-2024 End: 03-17-2024 Patient encounter procedure 03/17/2024 2:40 PM EDT Office Visit Cardiology [address] [place] [address] Bilateral leg edema [R60.0]; SOB (shortness of breath) [R06.02]; Weight gain [R63.5] Cardiology Comment on above: Bilateral leg edema [R60.0]; SOB (shortn ess of breath) [R06.02]; Weight gain [R63.5] Start: 03-05-2024 BP CONTROLLED (<130/80) BP CONTROLLED (<130/80) [facility] Start: 03-02-2024 ANNUAL PCP TEAM CHRONIC DISEASE VISIT ANNUAL PCP TEAM CHRONIC DISEASE VISIT [facility] Start: 03-02-2024 BP CONTROLLED (<130/80) BP CONTROLLED (<130/80) [facility] Start: 02-28-2024 End: 05-29-2024 Basic metabolic 2000 panel - Serum or Plasma [facility] Work Phone: Comment on above: Expected: 02/28/2024, Expires: Start: 02-28-2024 End: 05-29-2024 Cortisol [Mass/volume] in Serum or Plasma CORTISOL, SERUM Lab Routine Weight gain Hypersomnolence Cushingoid facies Expected: 02/28/2024, Expires: 05/29/2024 [facility] Comment on above: Expected: 02/28/2024, Expires: Start: 02-28-2024 Hemoglobin A1c measurement HbA1C [facility] Start: 02-28-2024 End: 05-29-2024 Natriuretic peptide.B prohormone N-Terminal [Mass/volume] in Serum or Plasma [facility] Comment on above: Expected: 02/28/2024, Expires: 4 Start: 02-28-2024 End: 02-28-2024 Patient encounter procedure 02/28/2024 11:00 AM EDT Office Visit [facility] [place] [address] [place], [place] [id number] Vikas Travis PA-C [address] [place] [address] 4 week follow up [facility] [place] Comment on above: 4 week follow up Start: 02-17-2024 ANNUAL PCP TEAM CHRONIC DISEASE VISIT ANNUAL PCP TEAM CHRONIC DISEASE VISIT [facility] Start: 02-04-2024 End: 05-05-2024 Comprehensive metabolic 2000 panel - Serum or Plasma [facility] Work Phone: Comment on above: Expected: 02/04/2024, Expires: Start: 02-04-2024 End: 05-05-2024 Natriuretic peptide.B prohormone N-Terminal [Mass/volume] in Serum or Plasma [facility] Comment on above: Expected: 02/04/2024, Expires: 4 Start: 02-04-2024 End: 05-05-2024 Thyrotropin [Units/volume] in Serum or Plasma [facility] Comment on above: Expected: 02/04/2024, Expires: Start: 01-20-2024 ANNUAL PCP TEAM CHRONIC DISEASE VISIT ANNUAL PCP TEAM CHRONIC DISEASE VISIT [facility] Start: 12-05-2023 End: 02-04-2024 Basic metabolic 2000 panel - Serum or Plasma BASIC METABOLIC PNL Lab Routine Type 2 diabetes mellitus with microalbuminuria, with long-term current use of insulin (HCC) Expected: 12/05/2023, Expires: 02/04/2024 [facility] Work Phone: Comment on above: Expected: 12/05/2023, Expires: Start: 12-05-2023 End: 02-04-2024 CBC W Auto Differential panel - Blood CBC + DIFF Lab Routine Type 2 diabetes mellitus with microalbuminuria, with long-term current use of insulin (HCC) Expected: 12/05/2023, Expires: 02/04/2024 [facility] Work Phone: Comment on above: Expected: 12/05/2023, Expires: Start: 12-05-2023 End: 02-04-2024 Hemoglobin A1c in Blood HGB A1C Lab Routine Type 2 diabetes mellitus with microalbuminuria, with long-term current use of insulin (HCC) Expected: 12/05/2023, Expires: 02/04/2024 [facility] Work Phone: Comment on above: Expected: 12/05/2023, Expires: 4 Start: 12-05-2023 End: 02-04-2024 Lipid 1996 panel - Serum or Plasma LIPID PANEL BASIC Lab Routine Mixed hyperlipidemia Expected: 12/05/2023, Expires: 02/04/2024 [facility] Work Phone: Comment on above: Expected: 12/05/2023, Expires: Start: 11-30-2023 ANNUAL PCP TEAM CHRONIC DISEASE VISIT ANNUAL PCP TEAM CHRONIC DISEASE VISIT [facility] Start: 11-28-2023 End: 02-27-2024 ALBUMIN/CREAT RATIO RND UR ALBUMIN/CREAT RATIO RND UR Lab Routine Type 2 diabetes mellitus without complication, with long-term current use of insulin (HCC) Expected: 11/28/2023, Expires: 02/27/2024 [facility] Work Phone: Comment on above: Expected: 11/28/2023, Expires: Start: 11-28-2023 Hepatitis B screening URINE ALBUMIN:CREATININE RATIO [facility] Start: 11-28-2023 Hepatitis B surface antibody level LDL CHOLESTEROL [facility] Start: 11-16-2023 Hemoglobin A1c measurement HbA1C [facility] Start: 11-16-2023 Hemoglobin A1c/Hemoglobin.total in Blood HbA1C [facility] Start: 09-22-2023 [facility] Start: 09-22-2023 [facility] Start: 09-17-2023 Advance Directive Discussion Advance Directive Discussion [facility] Start: 09-17-2023 Depression Assessment Depression Assessment [facility] Start: 06-01-2023 End: 08-01-2023 Hemoglobin A1c in Blood HGB A1C Lab Routine Type 2 diabetes mellitus with microalbuminuria, with long-term current use of insulin ([facility]) Expected: 06/01/2023, Expires: 08/01/2023 [facility] Work Phone: Comment on above: Expected: 06/01/2023, Expires: Start: 05-31-2023 3 comp foot exam completed DIABETIC FOOT EXAM [facility] Start: 05-31-2023 ANNUAL PCP TEAM CHRONIC DISEASE VISIT ANNUAL PCP TEAM CHRONIC DISEASE VISIT [facility] Start: 05-30-2023 Hemoglobin A1c/Hemoglobin.total in Blood HBA1C [facility] Start: 05-30-2023 End: 07-30-2023 Lipid 1996 panel - Serum or Plasma LIPID PANEL BASIC Lab Routine Type 2 diabetes mellitus with microalbuminuria, with long-term current use of insulin (HCC) Expected: 05/30/2023, Expires: 07/30/2023 [facility] Work Phone: Comment on above: Expected: 05/30/2023, Expires: 3 Start: 05-18-2023 End: 07-18-2023 Comprehensive metabolic 2000 panel - Serum or Plasma [facility] Work Phone: Comment on above: Expected: 05/18/2023, Expires: 3 Start: 05-18-2023 End: 07-18-2023 Creatine kinase [Enzymatic activity/volume] in Serum or Plasma [facility] Work Phone: Comment on above: Expected: 05/18/2023, Expires: 3 Start: 05-18-2023 Influenza vaccination [facility] Start: 05-18-2023 End: 07-18-2023 Urinalysis complete panel - Urine [facility] Work Phone: Comment on above: Expected: 05/18/2023, Expires: 3 Start: 05-18-2023 End: 07-18-2023 URINALYSIS, DIPSTICK ONLY [facility] Work Phone: Comment on above: Expected: 05/18/2023, Expires: 3 Start: 03-03-2023 Adult depression screening assessment DEPRESSION SCREENING [facility] Start: 03-03-2023 ANNUAL PCP TEAM CHRONIC DISEASE VISIT ANNUAL PCP TEAM CHRONIC DISEASE VISIT [facility] Start: 03-03-2023 BP CONTROLLED (<130/80) BP CONTROLLED (<130/80) [facility] Start: 03-02-2023 End: 05-02-2023 Comprehensive metabolic 2000 panel - Serum or Plasma [facility] Work Phone: Comment on above: Expected: 03/02/2023, Expires: 3 Start: 03-02-2023 End: 05-02-2023 Lipase [Enzymatic activity/volume] in Serum or Plasma [facility] Work Phone: Comment on above: Expected: 03/02/2023, Expires: 3 Start: 01-27-2023 BP CONTROLLED (<130/80) BP CONTROLLED (<130/80) [facility] Start: 11-29-2022 End: 01-29-2023 CBC W Ordered Manual Differential panel - Blood PATHOLOGIST INTERPRETATION WITH CBC AND DIFF Lab Routine Leukocytosis, unspecified type Expected: 11/29/2022, Expires: 01/29/2023 [facility] Work Phone: Comment on above: Expected: 11/29/2022, Expires: 3 Start: 11-27-2022 End: 01-27-2023 ALBUMIN/CREAT RATIO RND UR [facility] Work Phone: Comment on above: Expected: 11/27/2022, Expires: 3 Start: 11-27-2022 End: 01-27-2023 CBC W Auto Differential panel - Blood [facility] Work Phone: Comment on above: Expected: 11/27/2022, Expires: 3 Start: 11-27-2022 End: 01-27-2023 Comprehensive metabolic 2000 panel - Serum or Plasma [facility] Work Phone: Comment on above: Expected: 11/27/2022, Expires: 3 Start: 11-27-2022 End: 01-27-2023 Hemoglobin A1c in Blood [facility] Work Phone: Comment on above: Expected: 11/27/2022, Expires: 3 Start: 11-21-2022 Patient discharge [facility] Start: 11-21-2022 ANNUAL PCP TEAM CHRONIC DISEASE VISIT ANNUAL PCP TEAM CHRONIC DISEASE VISIT [facility] Start: 11-21-2022 BP CONTROLLED (<130/80) BP CONTROLLED (<130/80) [facility] Start: 11-21-2022 Following clinical pathway protocol [facility] Start: 11-21-2022 Assessment of risk of venous thromboembolism [facility] Start: 11-21-2022 Care regimes management [facility] Start: 11-21-2022 Fall prevention [facility] Start: 11-21-2022 Incentive spirometry [facility] Start: 11-21-2022 Inhalation therapy procedure [facility] Start: 11-21-2022 Insertion of catheter into peripheral vein [facility] Start: 11-21-2022 Introduction of urinary catheter [facility] Start: 11-21-2022 Measuring intake and output [facility] Start: 11-21-2022 Oxygen therapy [facility] Start: 11-21-2022 Providing care according to standard [facility] Start: 11-21-2022 Provision of activity privileges [facility] Start: 11-21-2022 Referral to service [facility] Start: 11-21-2022 [facility] Start: 11-21-2022 Admission procedure [facility] Start: 11-21-2022 [facility] Start: 10-18-2022 Glaucoma screening Dilated Retinal Exam [facility] Start: 10-18-2022 Hepatitis C antibody, confirmatory test DILATED RETINAL EXAM [facility] Start: 09-17-2022 ADVANCE DIRECTIVE DISCUSSION ADVANCE DIRECTIVE DISCUSSION [facility] Start: 09-17-2022 DEPRESSION ASSESSMENT DEPRESSION ASSESSMENT [facility] Start: 08-30-2022 End: 10-30-2022 Basic metabolic 2000 panel - Serum or Plasma BASIC METABOLIC PNL Lab Routine Type 2 diabetes mellitus without complication, with long-term current use of insulin (HCC) Expected: 08/30/2022, Expires: 10/30/2022 [facility] Work Phone: Comment on above: Expected: 08/30/2022, Expires: 3 Start: 08-30-2022 End: 10-30-2022 CBC W Ordered Manual Differential panel - Blood PATHOLOGIST INTERPRETATION WITH CBC AND DIFF Lab Routine Monocytosis Expected: 08/30/2022, Expires: 10/30/2022 [facility] Work Phone: Comment on above: Expected: 08/30/2022, Expires: 3 Start: 08-30-2022 End: 10-30-2022 Hemoglobin A1c in Blood HGB A1C Lab Routine Type 2 diabetes mellitus with microalbuminuria, with long-term current use of insulin (HCC) Expected: 08/30/2022, Expires: 10/30/2022 [facility] Work Phone: Comment on above: Expected: 08/30/2022, Expires: 3 Start: 08-29-2022 Hemoglobin A1c/Hemoglobin.total in Blood HBA1C [facility] Start: 08-25-2022 Hemoglobin A1c/Hemoglobin.total in Blood HBA1C [facility] Start: 08-16-2022 Hepatitis B screening URINE ALBUMIN:CREATININE RATIO [facility] Start: 08-16-2022 Hepatitis B surface antibody level LDL CHOLESTEROL [facility] Start: 06-03-2022 End: 08-03-2022 Basic metabolic 2000 panel - Serum or Plasma BASIC METABOLIC PNL Lab Routine Type 2 diabetes mellitus with microalbuminuria, with long-term current use of insulin (HCC) Expected: 06/03/2022, Expires: 08/03/2022 [facility] Work Phone: Comment on above: Expected: 06/03/2022, Expires: 2 Start: 06-03-2022 End: 08-03-2022 CBC W Auto Differential panel - Blood CBC + DIFF Lab Routine Type 2 diabetes mellitus with microalbuminuria, with long-term current use of insulin (HCC) Expected: 06/03/2022, Expires: 08/03/2022 [facility] Work Phone: Comment on above: Expected: 06/03/2022, Expires: 2 Start: 06-03-2022 End: 08-03-2022 Hemoglobin A1c in Blood HGB A1C Lab Routine Type 2 diabetes mellitus with microalbuminuria, with long-term current use of insulin (HCC) Expected: 06/03/2022, Expires: 08/03/2022 [facility] Work Phone: Comment on above: Expected: 06/03/2022, Expires: 2 Start: 06-03-2022 End: 08-03-2022 Hepatitis C virus Ab [Presence] in Serum HEP C AB IA W/CONF SCRN Lab Routine Need for hepatitis C screening test Expected: 06/03/2022, Expires: 08/03/2022 [facility] Work Phone: Comment on above: Expected: 06/03/2022, Expires: 2 Start: 05-18-2022 Influenza vaccination INFLUENZA (#1) [facility] Start: 05-06-2022 3 comp foot exam completed DIABETIC FOOT EXAM [facility] Start: 04-08-2022 [facility] Work Phone: Start: 02-11-2022 End: 04-13-2022 Hemoglobin A1c/Hemoglobin.total in Blood [facility] Comment on above: Expected: 02/11/2022, Expires: 2 Start: 01-12-2022 End: 03-14-2022 Basic metabolic 2000 panel - Serum or Plasma BASIC METABOLIC PNL Lab Routine Type 2 diabetes mellitus without complication, with long-term current use of insulin (HCC) Expected: 01/12/2022, Expires: 03/14/2022 [facility] Work Phone: Comment on above: Expected: 01/12/2022, Expires: 2 Start: 09-17-2021 ADVANCE DIRECTIVE DISCUSSION ADVANCE DIRECTIVE DISCUSSION [facility] Start: 09-17-2021 DEPRESSION ASSESSMENT DEPRESSION ASSESSMENT [facility] Start: 07-16-2019 Adult depression screening assessment DEPRESSION SCREENING [facility] Start: 2019 RSV Vaccine (1 - 1-dose 75+ series) RSV Vaccine (1 - 1-dose 75+ series) [facility] Start: 2004 Hepatitis B Vaccine (1 of 3 - Risk 3-dose series) Hepatitis B Vaccine (1 of 3 - Risk 3-dose series) [facility] Start: 2004 RSV Vaccine (1 - 1-dose 60+ series) RSV Vaccine (1 - 1-dose 60+ series) [facility] Start: 1994 SHINGRIX VACCINE (1 of 2) SHINGRIX VACCINE (1 of 2) [facility] Start: 1963 Urine microalbumin profile [facility] Start: 1962 BP CONTROLLED (<130/80) BP CONTROLLED (<130/80) [facility] Start: 1962 HEPATITIS C SCREENING HEPATITIS C SCREENING [facility] Start: 1950 PNEUMOCOCCAL: 65+ (1 - PCV) PNEUMOCOCCAL: 65+ (1 - PCV) [facility] Start: 1949 COVID-19 VACCINE (#1) COVID-19 VACCINE (#1) [facility] Start: 1949 COVID-19 VACCINE (1) COVID-19 VACCINE (1) [facility] Start: 1944 COVID-19 VACCINE (#1) COVID-19 VACCINE (#1) [facility] CBC W Auto Different ial panel - Blood CBC + DIFF Lab Routine Near syncope 05/18/2023 4:29 PM EDT [facility] Work Phone: COVID & INFLUENZA A/ B & RSV NAAT, ROUTINE COVID & INFLUENZA A/B & RSV NAAT, ROUTINE Microbiology Routine Suspected COVID-19 virus infection 06/09/2023 11:25 AM EDT [facility] Work Phone: End: 05-18-2024 ECG COMPLETE ECG COMPLETE ECG Routine Near syncope Fall, initial encounter 1 Occurrences starting 05/18/2023 until 05/18/2024 [facility] Work Phone: Comment on above: 1 Occurrences starting 05/18/2023 until 05/18/2024 ECG COMPLETE ECG COMPLETE ECG Routine SOB (shortness of breath) Bilateral leg edema Weight increase 02/04/2024 11:01 AM T [facility] End: 02-27-2025 Echocardiography ECHO Cardiology Routine Bilateral leg edema SOB (shortness of breath) Weight gain 1 Occurrences starting 02/28/2024 until 02/27/2025 [facility] Comment on above: 1 Occurrences starting 02/28/2024 until 02/27/2025 Ferritin [Mass/volum e] in Serum or Plasma [facility] Lipid 1996 panel - S leatha or Plasma LIPID PANEL BASIC Lab Routine Type 2 diabetes mellitus with microalbuminuria, with long-term current use of insulin (HCC) 11/27/2022 9:20 AM T [facility] Work Phone: Measurement of respiratory function [facility] Measurement of respiratory function [facility] Patient Education [facility] Work Phone: Patient referral [facility] Work Phone: ROUTINE FLU A/B + RSV ROUTINE FL U A/B + RSV Lab Routine Suspected COVID-19 virus infection 06/09/2023 11:25 AM T [facility] Work Phone: SARS-CoV-2 (COVID-19 ) RNA [Presence] in Respiratory specimen by DARRIAN with probe detection COVID NAAT, ROUTINE Microbiology Routine Acute upper respiratory infection 05/18/2023 4:19 PM EDT [facility] Work Phone: SARS-CoV-2 (COVID-19 ) RNA [Presence] in Respiratory specimen by DARRIAN with probe detection COVID NAAT, UPPER RESPIRATORY, ROUTINE Microbiology Routine Suspected COVID-19 virus infection 06/09/2023 11:25 AM T [facility] Work Phone: End: 02-27-2025 US Vein - bilateral US VENOUS INCOMPETENCY [facility] Vascular Lab Routine Varicose veins of both lower extremities with inflammation 1 Occurrences starting 02/28/2024 until 02/27/2025 [facility] Comment on above: 1 Occurrences starting 02/28/2024 until 02/27/2025 Walking distance 6 minutes [facility] End: 03-05-2025 XR Chest PA and Lateral XR CHEST 2V FRONTAL/LAT Radiology Routine SOB (shortness of breath) Bilateral leg edema Weight increase 1 Occurrences starting 02/04/2024 until 03/05/2025 [facility] Comment on above: 1 Occurrences starting 02/04/2024 until 03/05/2025 XR Chest PA and Lateral XR CHEST 2V FRONTAL/LAT Radiology Routine SOB (shortness of breath) Bilateral leg edema Weight increase 02/04/2024 12:26 PM EDT [facility] XR Foot - left AP an d Lateral and oblique XR FOOT GENERAL 3V AP/LAT/OBL LEFT Radiology Routine Closed fracture of foot, unspecified laterality, initial encounter 01/22/2025 4:13 PM EDT [facility] Work Phone: End: 02-21-2026 XR Foot - left AP and Lateral and oblique XR FOOT GENERAL 3V AP/LAT/OBL LEFT Radiology Routine Closed fracture of foot, unspecified laterality, initial encounter 1 Occurrences starting 01/22/2025 until 02/21/2026 [facility] Work Phone: Comment on above: 1 Occurrences starting 01/22/2025 until 02/21/2026 End: 08-21-2024 XR HIP GENERAL 3V PELV/AP/LAT RIGHT XR HIP GENERAL 3V PELV/AP/LAT RIGHT Radiology Routine Acute hip pain, right 1 Occurrences starting 07/23/2023 until 08/21/2024 [facility] Work Phone: Comment on above: 1 Occurrences starting 07/23/2023 until 08/21/2024 XR HIP GENERAL 3V PELV/AP/LAT RIGHT XR HIP GENERAL 3V PELV/AP/LAT RIGHT Radiology Routine Acute hip pain, right 07/23/2023 3:10 PM EST [facility] Work Phone: [facility] Immunizations Immunization Date Immunization Notes Care Provider Rashida light 06-20-2024 influenza, high dose seasonal, preservative-free Zoila Wright [employer] Work Phone: [facility] 06-20-2024 influenza virus vacc ine, unspecified formulation Mathieu Virgen MD Work Phone: [facility] 06-06-2023 influenza (HD-IIV4) vaccine, age 65+ yr, high dose, quadrivalent, PF (FLUZONE HIGH-DOSE) aMthieu Virgen MD Work Phone: [facility] 06-06-2023 influenza virus vacc ine, unspecified formulation FERNY Travis PA-C Work Phone: [facility] 05-31-2022 influenza, high-dose , quadrivalent vaccine (FLUZONE HIGH DOSE QUADRIVALENT) Mathieu Virgen MD Work Phone: [facility] 05-31-2022 influenza virus vacc ine, unspecified formulation Mathieu Virgen MD Work Phone: [facility] 06-17-2021 influenza, injectabl e, quadrivalent, preservative free [facility] 06-17-2021 influenza, seasonal, injectable Mathieu Virgen MD Work Phone: [facility] 06-17-2021 influenza, seasonal, injectable, preservative free Mathieu Virgen MD Work Phone: [facility] 07-26-2020 influenza, high-dose , quadrivalent vaccine (FLUZONE HIGH DOSE QUADRIVALENT) Mathieu Virgen MD Work Phone: [facility] 08-21-2019 influenza, injectabl e, quadrivalent, preservative free [facility] 08-21-2019 influenza, seasonal, injectable Mathieu Virgen MD Work Phone: [facility] 08-21-2019 influenza, seasonal, injectable, preservative free Mathieu Virgen MD Work Phone: [facility] Work Phone: 07-04-2019 influenza, high dose seasonal, preservative-free Mathieu Virgen MD Work Phone: [facility] 07-16-2018 influenza, high dose seasonal, preservative-free Mathieu Virgen MD Work Phone: [facility] 08-27-2017 influenza, high dose seasonal, preservative-free Mathieu Virgen MD Work Phone: [facility] 08-17-2016 pneumococcal polysaccharide vaccine, 23 valent Mathieu Virgen MD Work Phone: [facility] 06-14-2016 influenza, high dose seasonal, preservative-free Mathieu Virgen MD Work Phone: [facility] Work Phone: 07-14-2015 influenza, high dose seasonal, preservative-free Mathieu Virgen MD Work Phone: [facility] Work Phone: 06-16-2015 pneumococcal conjuga te vaccine, 13 valent Mathieu Virgen MD Work Phone: [facility] Work Phone: 06-25-2014 influenza, seasonal, injectable Mathieu Virgen MD Work Phone: [facility] 07-12-2013 influenza virus vacc ine, unspecified formulation Mathieu Virgen MD Work Phone: [facility] 06-15-2012 influenza virus vacc ine, unspecified formulation Mathieu Virgen MD Work Phone: [facility] Work Phone: 06-07-2011 influenza virus vacc ine, unspecified formulation Mathieu Virgen MD Work Phone: [facility] Work Phone: 07-02-2010 influenza virus vacc ine, unspecified formulation Mathieu Virgen MD Work Phone: [facility] Work Phone: 07-14-2009 pneumococcal polysaccharide vaccine, 23 valent Mathieu Virgen MD Work Phone: [facility] 06-09-2009 influenza virus vacc ine, unspecified formulation Mathieu Virgen MD Work Phone: [facility] 07-22-2008 influenza virus vacc ine, unspecified formulation Mathieu Virgen MD Work Phone: [facility] 07-27-2007 influenza virus vacc ine, unspecified formulation Mathieu Virgen MD Work Phone: [facility] Work Phone: 07-23-2006 influenza virus vacc ine, unspecified formulation Mathieu Virgen MD Work Phone: [facility] Work Phone: 07-13-2005 influenza virus vacc ine, unspecified formulation Mathieu Virgen MD Work Phone: [facility] Work Phone: Payers Date Payer Category Payer Self-pay [id number] 2014 Medicare (Managed Care) PRIMETIM E [id number] 2014 Unknown PRIMETIME PRIMET [employer]ANCA HMO POS [id number] 2014-Present [phone] [address] [place] [address] [facility] [id number] 2014 Unknown [id number] 2014 Unknown [id number] Unknown [id number] 2.16.840.1.209560.3.579. 2.462 Unknown [id number] 2.16.840.1.634958.3.579. 2.462 Unknown [id number] 2.16.840.1.073156.3.579. 2.462 Unknown [id number] 2.16.840.1.046940.3.579. 2.462 Unknown [id number] 2.16.840.1.366407.3.579. 2.462 Unknown [id number] 2.16.840.1.120949.3.579. 2.462 Unknown [id number] 2.16.840.1.867905.3.579. 2.462 Unknown [id number] 2.16.840.1.240809.3.579. 2.462 Unknown [id number] 2.16.840.1.204967.3.579. 2.462 Unknown [id number] 2.16.840.1.983913.3.579. 2.462 Unknown [id number] 2.16.840.1.202561.3.579. 2.462 Unknown [id number] 2.16.840.1.619203.3.579. 2.462 Unknown [id number] 2.16.840.1.501443.3.579. 2.462 Unknown [id number] 2.16.840.1.664629.3.579. 2.462 Unknown [id number] 2.16.840.1.300203.3.579. 2.462 Unknown [id number] 2.16.840.1.825803.3.579. 2.462 Unknown [id number] 2.16.840.1.638860.3.579. 2.462 Unknown [id number] 2.16.840.1.064417.3.579. 2.462 Unknown [id number] 2.16.840.1.944404.3.579. 2.462 Unknown [id number] 2.16.840.1.974459.3.579. 2.462 Unknown [id number] 2.16.840.1.672711.3.579. 2.462 Unknown [id number] 2.16.840.1.634747.3.579. 2.462 Unknown [id number] 2.16.840.1.783436.3.579. 2.462 Unknown [id number] 2.840.1.797312.3.579. 2.462 Unknown [id number] 2.840.1.026559.3.579. 2.462 Unknown [id number] 2.840.1.876152.3.579. 2.462 Unknown [id number] 2.840.1.108988.3.579. 2.462 Unknown [id number] 2.840.1.128340.3.579. 2.462 Unknown [id number] 2.840.1.010519.3.579. 2.462 Unknown [id number] 2.16840.1.582850.3.579. 2.462 Unknown [id number] 2.840.1.637640.3.579. 2.462 Unknown [id number] 2.16840.1.447221.3.579. 2.462 Unknown [id number] 2.16840.1.988593.3.579. 2.462 Unknown [id number] 2.16.840.1.655643.3.579. 2.462 Unknown [id number] 2.16.840.1.679559.3.579. 2.462 Unknown [id number] 2.840.1.318842.3.579. 2.462 Unknown [id number] 2.16.840.1.689900.3.579. 2.462 Unknown [id number] 2.16.840.1.956747.3.579. 2.462 Unknown [id number] 2.16.840.1.653993.3.579. 2.462 Unknown [id number] 2.16.840.1.027757.3.579. 2.462 Unknown [id number] 2.16.840.1.163319.3.579. 2.462 Unknown [id number] 2.16.840.1.064896.3.579. 2.462 Unknown [id number] 2.16.840.1.974362.3.579. 2.462 Unknown [id number] 2.16.840.1.045887.3.579. 2.462 Unknown [id number] 2.16.840.1.217405.3.579. 2.462 Unknown [id number] 2.16.840.1.621845.3.579. 2.462 Unknown [id number] 2.16.840.1.842497.3.579. 2.462 Unknown [id number] 2.16.840.1.136123.3.579. 2.462 Unknown [id number] 2.16.840.1.429237.3.579. 2.462 Unknown [id number] 2.16.840.1.551658.3.579. 2.462 Unknown [id number] 2.16.840.1.248620.3.579. 2.462 Social History Date Type Detail Facility Start: 08-17-2016 End: 04-29-2025 Tobacco smoking status NHIS Ex-smoker [facility] Start: 09-17-1970 End: 09-17-1980 History of tobacco use Current smoker [facility] Start: 09-17-1970 End: 09-17-1980 History of tobacco use Cigarette Smoker [facility] Start: 11-21-2021 End: 01-22-2025 Alcohol intake Current non-drinker of alcohol (finding) [facility] Start: 1945 Sex Assigned At Not on file [facility] Start: 12-25-2020 End: 05-31-2022 Exposure to SARS-CoV-2 (event) Not sure [facility] Start: 01-30-2022 End: 09-22-2023 Tobacco smoking status NHIS Unknown if ever smoked [facility] Start: 10-26-2021 Cigarettes [facility] Start: 1945 Sex Assigned At Male [facility] Start: 03-29-2022 End: 04-08-2022 Exposure to SARS-CoV-2 (event) Unable to assess [facility] Work Phone: Start: 08-17-2016 End: 01-18-2023 Cigarettes smoked current (pack per day) - Reported 2 [facility] Start: 08-17-2016 End: 06-20-2024 Tobacco use and exposure Smokeless tobacco non-user [facility] Start: 01-19-2023 History SDOH Alcohol Frequency 1 [facility] Start: 01-19-2023 History SDOH Alcohol Std Drinks 0 [facility] Start: 01-19-2023 History SDOH Social Connections Phone 5 [facility] Start: 01-19-2023 History SDOH Social Connections Get Together 3 [facility] Start: 01-19-2023 History SDOH Social Connections Membership 2 [facility] Start: 01-19-2023 History SDOH Social Connections Living 4 [facility] Start: 01-18-2023 End: 06-19-2024 Social connection and isolation panel [facility] Do you belong to any clubs or organizations such as jainism groups, unions, fraternal or athletic groups, or school groups? No [facility] Are you now , , , , never or living with a partner? [facility] How often to you hav e a drink containing alcohol? Never [facility] Start: 08-18-[address] inks containing alcohol do you have on a typical day? Patient does not drink [facility] How hard is it for y ou to pay for the very basics like food, housing, medical care, and heating Not very hard [facility] Do you feel stress - tense, restless, nervous, or anxious, or unable to sleep at night because your mind is troubled all the time - these days [OSQ] Not at all [facility] (I/We) worried wheth er (my/our) food would run out before (I/we) got money to buy more. Never true [facility] Start: 01-18-2023 Gender identity Identifies as male gender (finding) [facility] Start: 12-08-2024 End: 12-09-2024 Sex Male (finding) [facility] Medical Equipment Procedure Code Equipment Code Equipment Original Text Equipment Identifier Dates Total cholecystectomy with exploration of common bile duct CLIP,HEMANTHONYCK ANAHI WELILIA FDA Start: 11-19-2019 Total cholecystectomy with exploration of common bile duct CLIP,HEMOLOLILIA CHRISTIAN WELILIA FDA Start: 11-19-2019 Total cholecystectomy with exploration of common bile duct CLIP,HEMOLOLILIA WEIR FDA Start: 11-19-2019 Total cholecystectomy with exploration of common bile duct CLIP,HEMMASOOD WEIR FDA Start: 11-19-2019 Total cholecystectomy with exploration of common bile duct CLIP,HEMOLOLILIA CHRISTIAN WELILIA FDA Start: 11-19-2019 Total cholecystectomy with exploration of common bile duct CLIP,HEMOLOCK MED WELILIA FDA Start: 11-19-2019 Total cholecystectomy with exploration of common bile duct CLIP,HEMOLOLILIA CHRISTIAN WELILIA FDA Start: 11-19-2019 Total cholecystectomy with exploration of common bile duct CLIP,HEMOLOCK ANAHI WELILIA FDA Start: 11-19-2019 Total cholecystectomy with exploration of common bile duct CLIP,HEMOLOLILIA CHRISTIAN WELILIA FDA Start: 11-19-2019 Total cholecystectomy with exploration of common bile duct CLIP,HEMOLOCK MED WELILIA FDA Start: 11-19-2019 Total cholecystectomy with exploration of common bile duct CLIP,HEMOLOCK MED WECK FDA Start: 11-19-2019 Total cholecystectomy with exploration of common bile duct CLIP,HEMOLOCK MED WECK FDA Start: 11-19-2019 Total cholecystectomy with exploration of common bile duct CLIP,HEMOLOCK MED WECK FDA Start: 11-19-2019 Total cholecystectomy with exploration of common bile duct CLIP,HEMOLOCK MED WECK FDA Start: 11-19-2019 Total cholecystectomy with exploration of common bile duct CLIP,HEMOLOLILIA CHRISTIAN WECK FDA Start: 11-19-2019 Total cholecystectomy with exploration of common bile duct CLIP,HEMOLOLILIA ANAHI WECK FDA Start: 11-19-2019 Total cholecystectomy with exploration of common bile duct CLIP,HEMOLOCK ANAHI WECK FDA Start: 11-19-2019 Total cholecystectomy with exploration of common bile duct CLIP,HEMOLOLILIA ANAHI WECK FDA Start: 11-19-2019 Total cholecystectomy with exploration of common bile duct CLIP,HEMOLOLILIA ANAHI WECK FDA Start: 11-19-2019 Total cholecystectomy with exploration of common bile duct CLIP,HEMOLOLILIA ANAHI WECK FDA Start: 11-19-2019 Total cholecystectomy with exploration of common bile duct CLIP,HEMOLOLILIA CHRISTIAN WECK FDA Start: 11-19-2019 Total cholecystectomy with exploration of common bile duct CLIP,HEMOLOCK ANAHI WECK FDA Start: 11-19-2019 Total cholecystectomy with exploration of common bile duct CLIP,HEMOLOLILIA ANAHI WECK FDA Start: 11-19-2019 Total cholecystectomy with exploration of common bile duct CLIP,HEMOLOLILIA ANAHI WELILIA FDA Start: 11-19-2019 Total cholecystectomy with exploration of common bile duct CLIP,HEMOLOLILIA ANAHI CARMELLA FDA Start: 11-19-2019 Total cholecystectomy with exploration of common bile duct CLIP,HEMOLOLILIA CHRISTIAN WELILIA FDA Start: 11-19-2019 Total cholecystectomy with exploration of common bile duct CLIP,HEMOLOCK ANAHI WECK FDA Start: 11-19-2019 Total cholecystectomy with exploration of common bile duct CLIP,HEMOLOLILIA ANAHI WELILIA FDA Start: 11-19-2019 Total cholecystectomy with exploration of common bile duct CLIP,HEMOLOLILIA ANAHI WELILIA FDA Start: 11-19-2019 Total cholecystectomy with exploration of common bile duct CLIP,HEMOLOLILIA ANAHI WECK FDA Start: 11-19-2019 Total cholecystectomy with exploration of common bile duct CLIP,HEMOLOLILIA ANAHI WECK FDA Start: 11-19-2019 Total cholecystectomy with exploration of common bile duct CLIP,HEMOLOCK ANAHI WECK FDA Start: 11-19-2019 Total cholecystectomy with exploration of common bile duct CLIP,HEMOLOLILIA CHRISTIAN WECK FDA Start: 11-19-2019 Total cholecystectomy with exploration of common bile duct CLIP,HEMOLOLILIA CHRISTIAN WELILIA FDA Start: 11-19-2019 Total cholecystectomy with exploration of common bile duct CLIP,HEMOLOLILIA CHRISTIAN WECK FDA Start: 11-19-2019 Total cholecystectomy with exploration of common bile duct CLIP,HEMOLOLILIA WEIR FDA Start: 11-19-2019 Total cholecystectomy with exploration of common bile duct CLIP,Who@ FDA Start: 11-19-2019 Total cholecystectomy with exploration of common bile duct CLIP,Who@ FDA Start: 11-19-2019 1 Each twice daily. Accucheck compact test strips, dx-NIDDM [id number] Start: 08-20-2013 Comment on above: 1 Each twice daily. Accucheck compact test strips, dx-NIDDM [id number], [id number], [id number] Start: 08-20-2013 End: 06-20-2024 Comment on above: 1 Each once daily. D X: E11.9 Insulin: Yes Test blood sugar(s) 1 times daily. Dx: 250.00. Insulin: Yes Goals Date Patient Goal Desired Activity /State Functional Status Date Assessment Result Facility 04-30-2025 Functional status Ambulates [facility] Work Phone: 04-29-2025 Functional status None [facility] Work Phone: 11-21-2022 Functional status Activity Abili ty Independent [facility] Work Phone: 03-31-2015 Are you deaf, or do you have serious difficulty hearing No 03/31/2015 12:49 PM Gregoria Martinez RN No [facility] 03-31-2015 Are you blind, or do you have serious difficulty seeing, even when wearing glasses No 03/31/2015 12:49 PM Gregoria Martinez RN No [facility] 03-31-2015 Do you have serious difficulty walking or climbing stairs No 03/31/2015 12:49 PM Gregoria Martinez RN No [facility] 03-31-2015 Do you have difficul ty dressing or bathing No 03/31/2015 12:49 PM Gregoria Martinez RN No [facility] 03-31-2015 Because of a physica l, mental, or emotional condition, do you have difficulty doing errands alone such as visiting a physician's office or shopping No 03/31/2015 12:49 PM Gregoria Martinez RN No [facility] Mental Status Date Assessment Result Facility 04-30-2025 Cognitive function Voice/Name [facility] Work Phone: 04-29-2025 Cognitive function Level Of Cons ciousness Awake;Alert;Appropriate;Fol lows Commands [facility] Work Phone: 01-19-2025 Cognitive function Voice/Name [facility] Work Phone: 09-20-2024 Cognitive function Awake;Alert;A ppropriate;Fol lows Commands [facility] Work Phone: 09-01-2024 Cognitive function Level Of Cons ciousness Awake;Alert;Appropriate;Fol lows Commands [facility] Work Phone: 09-22-2023 Cognitive function Level Of Cons ciousness Awake;Alert;Appropriate;Fol lows Commands [facility] Work Phone: 03-31-2023 Cognitive function Level Of Cons ciousness Awake;Alert;Appropriate;Fol lows Commands [facility] Work Phone: 02-24-2023 Cognitive function Level Of Cons ciousness Drowsy [facility] Work Phone: 11-21-2022 Cognitive function Voice/Name [facility] Work Phone: 11-21-2022 Cognitive function Awake;Alert;Appropriat e [facility] Work Phone: 08-08-2022 Cognitive function Level Of Cons ciousness Awake;Alert;Appropriate;Fol lows Commands;Responds to vocal stimuli [facility] Work Phone: 04-08-2022 Cognitive function Level Of Cons ciousness Awake;Alert;Appropriate;Fol lows Commands [facility] Work Phone: 03-31-2015 Because of a physica l, mental, or emotional condition, do you have serious difficulty concentrating, remembering, or making decisions No 03/31/2015 12:49 PM EDT Gregoria Moeller RN No [facility] Clinical Notes 01-24-2021 to 04-30-2025 Note Date & Type Note Facility 04-30-2025 Discharge summary Note Date/Time April 30, 2025 4:01pm [facility] Medical Records Department [address] [place] [address] Instructions for Home/Discharge Instructions 04/30/25 1558 MR#: [id number] Acct: [id number] Name: FAISAL ALARCON Rep #:[id number] : 1945 80 From: Chilango hanley DO PCP: Dr. Mathieu Virgen MD Status:ADM I NO Discharge Instructions DC O2, CPAP, BIPAP needs Home O2 Discharge instructions: No Dressing / Incision Discharge Activity: No Restrictions Follow Up Care Test Results: Test results from this visit will be discussed in further detail at your follow-up appointment, if applicable. Discharge Plan Admission Admit Date/Time: 04/29/25 19:37 Primary Reason for Your Visit: Episode of passing out Attending Provider: Chilango Wheeler Primary Care Provider: Mathieu Virgen Consulting Providers: Narda Prather Discharge Orders/Prescriptions Prescriptions: Continued Eliquis 5 mg tablet 5 mg PO BID Qty: 180 3RF carvedilol 25 mg tablet 25 mg PO BID Qty: 180 3RF metformin 500 mg tablet extended release 24 hr 1,000 mg PO BID albuterol sulfate 90 mcg/actuation HFA aerosol inhaler 1 inh INHALATION Q6H PRN (Reason: SOB) Qty: 8.5 6RF turmeric root extract 500 mg capsule 1,000 mg PO DAILY flecainide 100 mg tablet 100 mg PO Q12H Qty: 180 3RF spironolactone 25 mg tablet 25 mg PO DAILY Qty: 30 11RF famotidine 20 mg tablet 20 mg PO BID Patient Comments: take 1 tablet by mouth twice a day insulin glargine [Basaglar KwikPen U-100 Insulin] 100 unit/mL (3 mL) insulin pen 40 unit subcut .COMPLEX Rx Instructions: 40 units subcutaneously QAM; NUVOFLEX 1 cap PO DAILY solifenacin 10 mg tablet 10 mg PO DAILY cholecalciferol (vitamin D3) [Vitamin D3] 50 mcg (2,000 unit) capsule 2,000 unit PO DAILY Jardiance 25 mg Tablet 25 mg PO DAILY Qty: 30 2RF Fiasp FlexTouch U-100 Insulin 100 unit/mL (3 mL) insulin pen 20 unit subcut TID mecobalamin (vitamin B12) 1,000 mcg tablet,chewable 1,000 mcg PO DAILY diltiazem HCl [Cartia XT] 120 mg capsule,extended release 24hr 120 mg PO DAILY tamsulosin 0.4 mg capsule 0.4 mg PO BID Patient Comments: per family hasn't started at home as was in & out of hospital though had prevtaken during prev hospitalization. atorvastatin 20 mg tablet 20 mg PO DAILY furosemide [Lasix] 40 mg tablet 40 mg PO .with lunch Patient Comments: takes two pills for weight gain >4lbs finasteride 5 mg tablet 5 mg PO DAILY isosorbide mononitrate 30 mg tablet extended release 24 hr 30 mg PO DAILY Qty: 90 3RF Changed ferrous gluconate 324 mg (37.5 mg iron) tablet 324 mg PO DAILY 30 Days 3RF Referrals / Follow Up: Mathieu Virgen MD [Primary Care Provider] - Disposition Disposition (needs filled in before D/C Order can be placed): Home, Self Care 04/30/25 1601<Electronically signed by Chilango Wheeler DO>Chilango Wheeler DO CC: Dr. Narda Prather DO; Dr. Mathieu Virgen MD ~ Signed [facility] Work Phone: [phone]) 396-181008-14-2025 Discharge summary [facility] Medical Records Department [address] [place] [id number] Instructions for Home/Discharge Instructions 04/30/25 1558 MR#: [id number] Acct: [id number] Name: FAISAL ALARCON Rep #:[id number] : 1945 80 From: Chilango hanley DO PCP: Dr. Mathieu Virgen MD Status:ADM I NO Discharge Instructions DC O2, CPAP, BIPAP needs Home O2 Discharge instructions: No Dressing / Incision Discharge Activity: No Restrictions Follow Up Care Test Results: Test results from this visit will be discussed in further detail at your follow- up appointment, if applicable. Discharge Plan Admission Admit Date/Time: 04/29/25 19:37 Primary Reason for Your Visit: Episode of passing out Attending Provider: Chilango Wheeler Primary Care Provider: Mathieu Virgen Consulting Providers: Narda Prather Discharge Orders/Prescriptions Prescriptions: Continued Eliquis 5 mg tablet 5 mg PO BID Qty: 180 3RF carvedilol 25 mg tablet 25 mg PO BID Qty: 180 3RF metformin 500 mg tablet extended release 24 hr 1,000 mg PO BID albuterol sulfate 90 mcg/actuation HFA aerosol inhaler 1 inh INHALATION Q6H PRN (Reason: SOB) Qty: 8.5 6RF turmeric root extract 500 mg capsule 1,000 mg PO DAILY flecainide 100 mg tablet 100 mg PO Q12H Qty: 180 3RF spironolactone 25 mg tablet 25 mg PO DAILY Qty: 30 11RF famotidine 20 mg tablet 20 mg PO BID Patient Comments: take 1 tablet by mouth twice a day insulin glargine [Basaglar KwikPen U-100 Insulin] 100 unit/mL (3 mL) insulin pen 40 unit subcut .COMPLEX Rx Instructions: 40 units subcutaneously QAM; NUVOFLEX 1 cap PO DAILY solifenacin 10 mg tablet 10 mg PO DAILY cholecalciferol (vitamin D3) [Vitamin D3] 50 mcg (2,000 unit) capsule 2,000 unit PO DAILY Jardiance 25 mg Tablet 25 mg PO DAILY Qty: 30 2RF Fiasp FlexTouch U-100 Insulin 100 unit/mL (3 mL) insulin pen 20 unit subcut TID mecobalamin (vitamin B12) 1,000 mcg tablet,chewable 1,000 mcg PO DAILY diltiazem HCl [Cartia XT] 120 mg capsule,extended release 24hr 120 mg PO DAILY tamsulosin 0.4 mg capsule 0.4 mg PO BID Patient Comments: per family hasn't started at home as was in & out of hospital though had prevtaken during prev hospitalization. atorvastatin 20 mg tablet 20 mg PO DAILY furosemide [Lasix] 40 mg tablet 40 mg PO .with lunch Patient Comments: takes two pills for weight gain >4lbs finasteride 5 mg tablet 5 mg PO DAILY isosorbide mononitrate 30 mg tablet extended release 24 hr 30 mg PO DAILY Qty: 90 3RF Changed ferrous gluconate 324 mg (37.5 mg iron) tablet 324 mg PO DAILY 30 Days 3RF Referrals / Follow Up: Mathieu Virgen MD [Primary Care Provider] - Disposition Disposition (needs filled in before D/C Order can be placed): Home, Self Care 04/30/25 [facility] CC: Dr. Narda Prather DO; Dr. Mathieu Virgen MD ~ Signed [facility]08[facility]14[facility] History and physical note Author Narda Araiza [facility] Note Date/Time April 30, 2025 6: 45am [facility] Medical Records Department [address] [place] [address] H&P Exam - Hospitalist 04/29/25 1905 MR#: [id number] Acct: [id number] Name: FAISAL ALARCON Rep #:[id number] : 1945 80 From: Narda Musa DO PCP: Dr. Mathieu Virgen MD Status:ADM I NO Location: [place] [address] HPI - General General Date of Admission: 04/29/25 Date of Service: 04/29/25 Chief Complaint: Syncope. HPI Narrative FAISAL ALARCON, is a 80 M with a past medical history of essential hypertension;on carvedilol, furosemide and spironolactone, hyperlipidemia; on atorvastatin and colestipol, remote history of tobacco abuse (quit 1975); with subsequent restrictive lung disease, chronic hypoxic respiratory failure; on 2L NC nocturnal, obesity (class I); with BMI of 33.6 this admission, CJ; on CPAP, CAD; nonobstructive on ISMO, paroxysmal atrial fibrillation; on diltiazem, flecainide and with patient noncompliant with apixaban due to prohibitive cost, history of RBBB with LAFB, history of frequent PVCs, DM-2; of unknown control onmetformin, empagliflozin, insulin aspart 22 units subcu 3 times daily AC and insulin glargine 40 units SQ at bedtime, history of blindness in Left eye, JASMIN; on ferrous sulfate twice daily, RLS, history of pneumonia due to COVID-19, history of bladder cancer; s/p excision, OAB; on solifenacin, BPH; s/p TURP (2020) on finasteride and tamsulosin twice daily, GERD; on famotidine twice daily, psoriatic arthritis and OA; with chronic back pain on new nuvoflex causing patient to ambulate with a walker prn at baseline who presents to [facility] ER complaining of syncopal event. Mr. Alarcon reports his symptoms began earlier today when he was exerting himself outside and came in to talk to his daughter and was leaning against the counter talking when he suddenly lost consciousness without warning with no significant head injury or other trauma. His daughter informed the ER physicianthat he lost consciousness for ~1 minute with patient denying lightheadedness, dizziness, visual changes, chest pain, palpitations, heart racing or lower extremity edema but he does admit to increasing shortness of breath over the past few months. The patient states that he did eat and drink today. He deniessimilar previous episodes. He also denies associated fever, chills, runny nose,sore throat, ear pain, shortness of breath, productive cough, abdominal pain, nausea, vomiting, diarrhea, dysuria, hematuria, headache, rash, recent illness or recent medication changes other than patient stopping apixaban ~1 month ago. In the ER he underwent CTA of the chest with IV contrast that revealed no pulmonary embolism with scattered mediastinal lymph nodes some of which are upper limits of normal size and are most likely reactive with a mildly elevated troponin T of 43 ng/L suspected to be due to acute cardiac strain with otherwiseunremarkable laboratory studies and vital signs and he was then admitted to the PCU under observation status for ongoing care for state that is expected to be less than 2 midnights. [facility] Medical History (Updated 04/29/25 @ 20:[address] Narda Prather, ) Chronic pain Kidney stones GERD (gastroesophageal reflux disease) Non-smoker Diastolic dysfunction Dyspnea Diabetes Sleep apnea Atrial fibrillation Cancer Walker as ambulation aid Arthritis Prostate disease Complete edentulism, class III Gastric reflux CPAP (continuous positive airway pressure) dependence History of pain when walking History of edema History of echocardiogram History of stress test Cardiology follow-up encounter Blindness Bladder cancer Restrictive airway disease Morbid obesity Pneumonia due to COVID-19 virus Left lower lobe pneumonia Acute respiratory failure with hypoxia Wears hearing aid Wears glasses Insulin dependent diabetes mellitus Psoriasis High cholesterol Restless legs Back pain Injury of back Dietary restriction Former smoker Shortness of breath on exertion Hypertension Right bundle branch 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 Nonobstructive atherosclerosis of coronary artery Obesity BPH (benign prostatic hyperplasia) Hyperlipidemia Essential (primary) hypertension Atrial fibrillation with RVR (02/05/21) Home Medications ?Medication ?Instructions ?Recorded ?Last Taken ?Type apixaban 5 mg tablet (Eliquis) 5 mg PO BID blood thinn er #180 tabs 02/22/21 05/03/24 Rx carvedilol 25 mg tablet 25 mg PO BID heart #180 tabs 02/22/21 05/07/24 09:30 Rx metformin 500 mg tablet,extended 1,000 mg PO BID blood sugar 10/24/21 Unknown History release 24 hr albuterol sulfate 90 mcg/actuation 1 inh inhalation Q6 H PRN SOB #8.5 11/30/21 Unknown Rx aerosol inhaler grams finasteride 5 mg tablet 5 mg PO DAILY bph 10/27/22 U nknown History NUVOFLEX 1 cap PO DAILY arthritis 03/10 Unknown History famotidine 20 mg tablet 20 mg PO BID misti 09/22/23 09:30 History insulin glargine 100 unit/mL (3 40 unit subcut QHS alcides bete 09/22/23 Unknown History mL) subcutaneous pen (Basaglar Joel U-100 Insulin) turmeric root extract 500 mg 1,000 mg PO DAILY viatmin 10/24/23 Unknown History capsule diltiazem HCl 120 mg 120 mg PO DAILY heart Unknown History capsule,extended release 24 hr (Cartia XT) tamsulosin 0.4 mg capsule 0.4 mg PO BID bph 07/10/24 1 History cholecalciferol (vitamin D3) 50 2,000 unit PO DAILY myles pplement 07/22/24 Unknown History mcg (2,000 unit) capsule (Vitamin D3) solifenacin 10 mg tablet 10 mg PO DAILY bladder 07/22 Unknown History empagliflozin 25 mg tablet 25 mg PO DAILY #30 tabs 05/10 Unknown Rx (Jardiance) flecainide 100 mg tablet 100 mg PO Q12H heart #180 ta bs 08/13/24 Unknown Rx atorvastatin 20 mg tablet 20 mg PO DAILY 09/01/24 Unkn own History colestipol 1 gram tablet 1 g PO DAILY PRN gen health 09/03/24 Unknown History furosemide 40 mg tablet (Lasix) 40 mg PO QAM #60 tabs 09/23/24 Unknown Rx spironolactone 25 mg tablet 25 mg PO DAILY #30 tabs Unknown Rx isosorbide mononitrate 30 mg 30 mg PO DAILY #90 tabs 0 10/22/24 Unknown Rx tablet,extended release 24 hr insulin aspart 22 unit subcut TID 01/19/25 Unknown History (niacinamide)(U-100) 100 unit/mL(3 mL) subcutaneous pen (Fiasp FlexTouch U-100 Insulin) mecobalamin (vitamin B12) 1,000 1,000 mcg PO DAILY 02/08 Unknown History mcg chewable tablet ferrous gluconate 324 mg (37.5 mg 324 mg PO BID #60 ta bs 04/08/25 Unknown Rx iron) tablet Allergy/AdvReac Type Severity Reaction Status Date / Time amoxicillin Allergy Rash Verified 04/29/25 19:25 Family History Sister Colon cancer Brother Diabetes Mother Diabetes Heart disease Cancer Father Heart disease Cancer Diabetes Surgical History Bladder disease Hx of right cataract extraction Hx of colonoscopy Hx of transurethral resection of prostate H/O wrist surgery History of left heart catheterization (02/07/21) Hx of umbilical hernia repair Hx of cholecystectomy Status post surgical manipulation of ankle joint H/O hemorrhoidectomy Social History household members: spouse Smoking Status: Former smoker how long ago did patient quit smokin years ago alcohol intake: never substance use type: does not use caffeine: Yes Type: coffee Number of servings: 1 ROS ROS Narrative Review of Systems: Constitutional: Patient denies fever or chills. Eyes: Patient denies changes in vision or discharge from eyes with chronic blindness in Left eye as per HPI. ENT: Patient denies runny nose, sore throat or ear pain. Resp: Patient denies shortness of breath or productive cough. CV: Patient admits to syncopal event as per HPI. He denies related chest pain, palpitations, heart racing or lower extremity edema. GI: Patient denies abdominal pain, nausea, vomiting, diarrhea or constipation. : Patient denies dysuria or hematuria. MSK: Patient denies arthralgias or myalgias. Skin: Patient denies rash, abscess, wounds or jaundice. Psych: Patient denies symptoms of uncontrolled depression or anxiety. Neuro: Patient denies headache, paresthesias or focal neurologic deficits. Allergy: Patient denies lip swelling, tongue swelling or urticaria. Hematology: Patient denies easy bleeding or easy bruisability. Endocrinology: Patient denies polyuria, polydipsia, polyphagia or heat/cold intolerance. 14 point ROS otherwise negative except for positives noted above in HPI. Vital Signs Vital Signs Vital Signs: 04/29/25 15:29 04/29/25 15:44 04/29/25 15:44 Temperature 98 F Temperature Source Oral Pulse Rate 78 Respiratory Rate 20 H Respiratory Effort Respiratory Pattern Blood Pressure 115/65 Blood Pressure Mean 81 Pulse Ox 94 95 95 Oxygen Delivery Method Nasal Cannula Room Air Nasal Cannula Oxygen Flow Rate (L/min) 2 2 04/29/25 15:44 04/29/25 16:05 04/29/25 17:28 Temperature Temperature Source Pulse Rate 73 Respiratory Rate 13 Respiratory Effort Normal Non-Labored Respiratory Pattern Normal Blood Pressure 113/75 Blood Pressure Mean 87 Pulse Ox 97 Oxygen Delivery Method Nasal Cannula Nasal Cannula Oxygen Flow Rate (L/min) 2 2 Weight Weight: 254 lb 10.142 oz Body Mass Index (BMI) 33.5 Physical Exam Const alert, oriented x3 and no apparent distress Constitutional Narrative: Obese and nontoxic in appearance. General Appearance: cooperative HEENT normocephalic, head/scalp atraumatic, hearing grossly normal bilaterally and moist oral mucous membranes Eyes PERRL and EOMs intact bilaterally Neck no lymphadenopathy and supple Resp normal respiratory effort, no retractions, no use of accessory muscles and clearto auscultation bilaterally Cardio regular rate and regular rhythm GI normal to inspection, nondistended, normoactive bowel sounds, soft to palpation,non-tender and non-distended GI Narrative: Obese. Extremity normal to inspection, full ROM and no clubbing, cyanosis or edema Skin Skin Narrative: Patient has evidence of rash, abscess, wounds or jaundice. Neuro oriented x3, CN's II-XII intact bilaterally, moves all extremities and no focal motor deficits Sensorium / Orientation: awake, alert, oriented to person, oriented to place andoriented to time Speech: speech normal Psych affect normal Results Medical Records Data Attestation: I reviewed the patient's medical records Lab / Micro Data Attestation: I reviewed the patient's lab results. 04/29/25 16:00 04/29/25 16:00 Labs: Laboratory Results - last 24 hr 04/29/25 16:00: WBC 10.3, RBC 5.23, Hgb 14.3, Hct 42.8, MCV 81.8, MCH 27.3, MCHC33.4, RDW Std Deviation 44.9 H, RDW Coeff of Lucia 14.9 H, Plt Count 327, MPV 10.5, Immature Gran % (Auto) 0.400, Neut % (Auto) 71.4 H, Lymph % (Auto) 14.5 L,Lea % (Auto) 10.5 H, Eos % (Auto) 2.8, Baso % (Auto) 0.4, Absolute Neuts (auto)7.3, Absolute Lymphs (auto) 1.49, Nucleated RBC % 0, Sodium 135, Potassium 4.1, Chloride 100, Carbon Dioxide 19.9 L, Anion Gap 15, BUN 24 H, Creatinine 1.20, Estim Creat Clear Calc 64.29, Est GFR (MDRD) Non-Af 61, BUN/Creatinine Ratio 19.8, Glucose 155 H, Calcium 9.3, Magnesium 2.3 H, Troponin T High Sens 43 H D 04/29/25 17:50: Troponin T Hi Sens 2 Hr 42 H Imaging Radiology Impression Chest CTA 04/29/25 17:15 IMPRESSION: 1. No pulmonary embolism. 2. Scattered mediastinal lymph nodes some of which are upper limits of normal in size and are most likely reactive lymph nodes. Reading Location: [facility] Assessment & Plan Assessment/Plan (1) Syncope: QUALIFIERS: Syncope type: unspecified Qualified Code(s): R55 - Syncope and collapse (2) Medical non-compliance: (3) Elevated troponin: (4) Paroxysmal atrial fibrillation: (5) History of CAD (coronary artery disease): PLAN: Plan 1. Syncope - Admit to PCU under observation status. Check echocardiogram to evaluate LVEF. Check carotid Doppler to evaluate for stenosis. Check chemical stress test to evaluate for possible underlying ischemia. Serializes troponin. Give ondansetron IV as needed for nausea vomiting. Give acetaminophen as neededfor pain or fever. 2. Paroxysmal atrial fibrillation; on diltiazem, flecainide and with patient noncompliant with apixaban due to prohibitive cost complicating #1 - Patient will be re-started on full regimen including apixaban. Patient strongly encouraged to take his medications as prescribed. 3. CAD; nonobstructive on ISMO compounding #1 & #2 - Resume ISMO as previous. 4. Obesity (class I); with BMI of 33.6 this admission plus CJ; on CPAP adding to the burden of disease outlined from #1 - #3 - Weight loss we recommended. Check TSH. Maintain nocturnal CPAP as before. This complicates his case and may hamper recovery. 5. Remote history of tobacco abuse (quit 1975); with subsequent restrictive lung disease plus chronic hypoxic respiratory failure; on 2L NC nocturnal addingto the medical complexity of #1 - #4 - Stable with no evidence of acute flare atthis time. Continue as needed nebulizers. 6. Essential hypertension; on carvedilol, furosemide and spironolactone - Maintain current therapy. Give IV hydralazine as needed for systolic blood pressure greater than 160 mmHg. 7. History of RBBB with LAFB - Noted. 8. History of frequent PVCs - Noted. We will monitor closely on PCU for possible recurrence. 9. DM-2; of unknown control on metformin, empagliflozin, insulin aspart 22 units SQ 3 times daily AC and insulin glargine 40 units SQ at bedtime - ADA/cardiac diet. FSBS q. AC/HS plus SSI. Continue long and short acting insulins at ~60% of previous dose to prevent hypoglycemia. 10. Hyperlipidemia; on atorvastatin and colestipol - Resume present treatment and check Lipid Profile in light of #1. 11. History of blindness in Left eye - Noted. 12. JASMIN; on ferrous sulfate twice daily - Stable with hemoglobin of 14.3 g/dL and MCV of 81.8 fL present on admission. 13. RLS - Stable. 14. History of pneumonia due to COVID-19 - Noted with no signs of recurrence atthis time. 15. History of bladder cancer; s/p excision - Noted. 16. OAB; on solifenacin - Continue solifenacin as before. 17. BPH; s/p TURP (2020) on finasteride and tamsulosin twice daily - Present treatment to be continued. 18. GERD; on famotidine twice daily - Maintain H2 salvador as before. 19. Psoriatic arthritis and OA; with chronic back pain on new nuvoflex causing patient to ambulate with a walker prn at baseline - Stable. PT/OT and case management consult treat on rounds in the a.m. further recommendations without appreciated in advance. 20. DVT prophylaxis - Patient re-started on apixaban for #2. Total time: Approximately (but not less than) 85 minutes. Charges/Coding Visit Charges OBSV E&M: 98923 Observ/hosp same date L3 04/30/25 0645 <Electronically signed by Narda Prather DO> Cosigner Signature (if applicable): CC: Dr. Narda rPather DO; Dr. Mathieu Virgen MD~ Signed [facility] Work Phone: [phone] History and physical note [facility] Medical Records Department [address] [address] H&P Exam - Hospitalist 04/29/25 1905 MR#: [id number] Acct: [id number] Name: FAISAL ALARCON Rep #:[id number] : 1945 80 From: Narda Musa DO PCP: Dr. Mathieu Virgen MD Status:ADM I NO Location: [place] [address]- 1 HPI - General General Date of Admission: 04/29/25 Date of Service: 04/29/25 Chief Complaint: Syncope. HPI Narrative FAISAL ALARCON, is a 80 M with a past medical history of essential hypertension;on carvedilol, furosemide and spironolactone, hyperlipidemia; on atorvastatin and colestipol, remote history of tobaccoabuse (quit 1975); with subsequent restrictive lung disease, chronic hypoxic respiratory failure; on 2L NC nocturnal, obesity (class I); with BMI of 33.6 this admission, CJ; on CPAP, CAD; nonobstructive on ISMO, paroxysmal atrial fibrillation; on diltiazem, flecainide and with patient noncompliantwith apixaban due to prohibitive cost, history of RBBB with LAFB, history of frequent PVCs, DM-2; of unknown control onmetformin, empagliflozin, insulin aspart 22 units subcu 3 times daily AC and insulin glargine 40 units SQ at bedtime, history of blindness in Left eye, JASMIN; on ferrous sulfate twice daily, RLS, history of pneumonia due to COVID-19, history of bladder cancer; s/p excision, OAB; onsolifenacin, BPH; s/p TURP (2020) on finasteride and tamsulosin twice daily, GERD; on famotidine twice daily, psoriatic arthritis and OA; with chronic back pain on new nuvoflex causing patient to ambulate with a walker prn at baseline who presents to [facility] ER complaining of syncopal event. Mr. Alarcon reports his symptoms began earlier today when he was exerting himself outside and came in to talk to his daughter and was leaning against the counter talking when he suddenly lost consciousness without warning with no significant head injury or other trauma. His daughter informed the ER physicianthat he lost consciousness for ~1 minute with patient denying lightheadedness, dizziness, visual changes, chest pain, palpitations, heart racing or lower extremity edema but he does admit toincreasing shortness of breath over the past few months. The patient states that he did eat and drink today. He deniessimilar previous episodes. He also denies associated fever, chills, runny nose,sore throat, ear pain, shortness of breath, productive cough, abdominal pain, nausea, vomiting, diarrhea, dysuria, hematuria, headache, rash, recent illness or recent medication changes other than patient stopping apixaban ~1 month ago. In the ER he underwent CTA of the chest with IV contrast that reve aled no pulmonary embolism with scattered mediastinal lymph nodes some of which are upper limits ofnormal size and are most likely reactive with a mildly elevated troponin T of 43 ng/L suspected to be due to acute cardiac strain with otherwiseunremarkable laboratory studies and vital signs and he was then admitted to the PCU under observation status for ongoing care for state that is expected mansi less than 2 midnights. [facility] Medical History (Updated 04/29/25 @ 20:[address] Narda Prather, ) Chronic pain Kidney stones GERD (gastroesophageal reflux disease) Non-smoker Diastolic dysfunction Dyspnea Diabetes Sleep apnea Atrial fibrillation Cancer Walker as ambulation aid Arthritis Prostate disease Complete edentulism, class III Gastric reflux CPAP (continuous positive airway pressure) dependence History of pain when walking History of edema History of echocardiogram History of stress test Cardiology follow-up encounter Blindness Bladder cancer Restrictive airway disease Morbid obesity Pneumonia due to COVID-19 virus Left lower lobe pneumonia Acute respiratory failure with hypoxia Wears hearing aid Wears glasses Insulin dependent diabetes mellitus Psoriasis High cholesterol Restless legs Back pain Injury of back Dietary restriction Former smoker Shortness of breath on exertion Hypertension Right bundle branch 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 Nonobstructive atherosclerosis of coronary artery Obesity BPH (benign prostatic hyperplasia) Hyperlipidemia Essential (primary) hypertension Atrial fibrillation with RVR (02/05/21) Home Medications ?Medication ?Instructions ?Recorded ?Last Taken ?Type apixaban 5 mg tablet (Eliquis) 5 mg PO BID blood thinn er #180 tabs 02/22/21 05/03/24 Rx carvedilol 25 mg tablet 25 mg PO BID heart #180 tabs 02/22/21 05/07/24 09:30 Rx metformin 500 mg tablet,extended 1,000 mg PO BID blood sugar 10/24/21 Unknown History release 24 hr albuterol sulfate 90 mcg/actuation 1 inh inhalation Q6 H PRN SOB #8.5 11/30/21 Unknown Rx aerosol inhaler grams finasteride 5 mg tablet 5 mg PO DAILY bph 10/27/22 U nknown History NUVOFLEX 1 cap PO DAILY arthritis 03/10 Unknown History famotidine 20 mg tablet 20 mg PO BID misti 09/22/23 09:30 History insulin glargine 100 unit/mL (3 40 unit subcut QHS alcides bete 09/22/23 Unknown History mL) subcutaneous pen (Gianni Maldonado U-100 Insulin) turmeric root extract 500 mg 1,000 mg PO DAILY viatmin 10/24/23 Unknown History capsule diltiazem HCl 120 mg 120 mg PO DAILY heart Unknown History capsule,extended release 24 hr (Cartia XT) tamsulosin 0.4 mg capsule 0.4 mg PO BID bph 07/10/24 1 History cholecalciferol (vitamin D3) 50 2,000 unit PO DAILY myles pplement 07/22/24 Unknown History mcg (2,000 unit) capsule (Vitamin D3) solifenacin 10 mg tablet 10 mg PO DAILY bladder 07/22 Unknown History empagliflozin 25 mg tablet 25 mg PO DAILY #30 tabs 05/10 Unknown Rx (Jardiance) flecainide 100 mg tablet 100 mg PO Q12H heart #180 ta bs 08/13/24 Unknown Rx atorvastatin 20 mg tablet 20 mg PO DAILY 09/01/24 Unkn own History colestipol 1 gram tablet 1 g PO DAILY PRN [employer] [facility] 09/03/24 Unknown History furosemide 40 mg tablet (Lasix) 40 mg PO QAM #60 tabs 09/23/24 Unknown Rx spironolactone 25 mg tablet 25 mg PO DAILY #30 tabs Unknown Rx isosorbide mononitrate 30 mg 30 mg PO DAILY #90 tabs 0 10/22/24 Unknown Rx tablet,extended release 24 hr insulin aspart 22 unit subcut TID 01/19/25 Unknown History (niacinamide)(U-100) 100 unit/mL(3 mL) subcutaneous pen (Fiasp FlexTouch U-100 Insulin) mecobalamin (vitamin B12) 1,000 1,000 mcg PO DAILY 02/08 Unknown History mcg chewable tablet ferrous gluconate 324 mg (37.5 mg 324 mg PO BID #60 ta bs 04/08/25 Unknown Rx iron) tablet Allergy/AdvReac Type Severity Reaction Status Date / Time amoxicillin Allergy Rash Verified 04/29/25 19:25 Family History Sister Colon cancer Brother Diabetes Mother Diabetes Heart disease Cancer Father Heart disease Cancer Diabetes Surgical History Bladder disease Hx of right cataract extraction Hx of colonoscopy Hx of transurethral resection of prostate H/O wrist surgery History of left heart catheterization (02/07/21) Hx of umbilical hernia repair Hx of cholecystectomy Status post surgical manipulation of ankle joint H/O hemorrhoidectomy Social History household members: spouse Smoking Status: Former smoker how long ago did patient quit smokin years ago alcohol intake: never substance use type: does not use caffeine: Yes Type: coffee Number of servings: 1 ROS ROS Narrative Review of Systems: Constitutional: Patient denies fever or chills. Eyes: Patient denies changes in vision or discharge from eyes with chronic blindness in Left eye asper HPI. ENT: Patient denies runny nose, sore throat or ear pain. Resp: Patient denies shortness of breath or productive cough. CV: Patient admits to syncopal event as per HPI. He denies related chest pain, palpitations, heart racing or lower extremity edema. GI: Patient denies abdominal pain, nausea, vomiting, diarrhea or constipation. : Patient denies dysuria or hematuria. MSK: Patient denies arthralgias or myalgias. Skin: Patient denies rash, abscess, wounds or jaundice. Psych: Patient denies symptoms of uncontrolled depression or anxiety. Neuro: Patient denies headache, paresthesias or focal neurologic deficits. Allergy: Patient denies lip swelling, tongue swelling or urticaria. Hematology: Patient denies easy bleeding or easy bruisability. Endocrinology: Patient denies polyuria, polydipsia, polyphagia or heat/cold intolerance. 14 point ROS otherwise negative except for positives noted above in HPI. Vital Signs Vital Signs Vital Signs: 04/29/25 15:29 04/29/25 15:44 04/29/25 15:44 Temperature 98 F Temperature Source Oral Pulse Rate 78 Respiratory Rate 20 H Respiratory Effort Respiratory Pattern Blood Pressure 115/65 Blood Pressure Mean 81 Pulse Ox 94 95 95 Oxygen Delivery Method Nasal Cannula Room Air Nasal Cannula Oxygen Flow Rate (L/min) 2 2 04/29/25 15:44 04/29/25 16:05 04/29/25 17:28 Temperature Temperature Source Pulse Rate 73 Respiratory Rate 13 Respiratory Effort Normal Non-Labored Respiratory Pattern Normal Blood Pressure 113/75 Blood Pressure Mean 87 Pulse Ox 97 Oxygen Delivery Method Nasal Cannula Nasal Cannula Oxygen Flow Rate (L/min) 2 2 Weight Weight: 254 lb 10.142 oz Body Mass Index (BMI) 33.5 Physical Exam Const alert, oriented x3 and no apparent distress Constitutional Narrative: Obese and nontoxic in appearance. General Appearance: cooperative HEENT normocephalic, head/scalp atraumatic, hearing grossly normal bilaterally and moist oral mucous membranes Eyes PERRL and EOMs intact bilaterally Neck no lymphadenopathy and supple Resp normal respiratory effort, no retractions, no use of accessory muscles and clearto auscultation bilaterally Cardio regular rate and regular rhythm GI normal to inspection, nondistended, normoactive bowel sounds, soft to palpation,non-tender and non-distended GI Narrative: Obese. Extremity normal to inspection, full ROM and no clubbing, cyanosis or edema Skin Skin Narrative: Patient has evidence of rash, abscess, wounds or jaundice. Neuro oriented x3, CN's II-XII intact bilaterally, moves all extremities and no focal motor deficits Sensorium / Orientation: awake, alert, oriented to person, oriented to place andoriented to time Speech: speech normal Psych affect normal Results Medical Records Data Attestation: I reviewed the patient's medical records Lab / Micro Data Attestation: I reviewed the patient's lab results. 04/29/25 16:00 04/29/25 16:00 Labs: Laboratory Results - last 24 hr 04/29/25 16:00: WBC 10.3, RBC 5.23, Hgb 14.3, Hct 42.8, MCV 81.8, MCH 27.3, MCHC33.4, RDW Std Deviation 44.9 H, RDW Coeff of Lucia 14.9 H, Plt Count 327, MPV 10.5, Immature Gran % (Auto) 0.400, Neut % (Auto) 71.4 H, Lymph % (Auto) 14.5 L,Lea % (Auto) 10.5 H, Eos % (Auto) 2.8, Baso % (Auto) 0.4, Absolute Neuts (auto)7.3, Absolute Lymphs (auto) 1.49, Nucleated RBC % 0, Sodium 135, Potassium 4.1, Chloride 100, Carbon Dioxide 19.9 L, Anion Gap 15, BUN 24 H, Creatinine 1.20, Estim Creat Clear Calc 64.29, Est GFR (MDRD) Non-Af 61, BUN/Creatinine Ratio 19.8, Glucose 155 H, Calcium 9.3, Magnesium 2.3 H, Troponin T High Sens 43 H D 04/29/25 17:50: Troponin T Hi Sens 2 Hr 42 H Imaging Radiology Impression Chest CTA 04/29/25 17:15 IMPRESSION: 1. No pulmonary embolism. 2. Scattered mediastinal lymph nodes some of which are upper limits of normal in size and are most likely reactive lymph nodes. Reading Location: [facility] Assessment & Plan Assessment/Plan (1) Syncope: QUALIFIERS: Syncope type: unspecified Qualified Code(s): R55 - Syncope and collapse (2) Medical non-compliance: (3) Elevated troponin: (4) Paroxysmal atrial fibrillation: (5) History of CAD (coronary artery disease): PLAN: Plan 1. Syncope - Admit to PCU under observation status. Check echocardiogram to evaluate LVEF. Check carotid Doppler to evaluate for stenosis. Check chemical stress test to evaluate for possible underlying ischemia. Serializes troponin. Give ondansetron IV as needed for nausea vomiting. Give acetaminophen as neededfor pain or fever. 2. Paroxysmal atrial fibrillation; on diltiazem, flecainide and with patient noncompliant with apixaban due to prohibitive cost complicating #1 - Patient will be re-started on full regimen including apixaban. Patient strongly encouraged to take his medications as prescribed. 3. CAD; nonobstructive on ISMO compounding #1 & #2 - Resume ISMO as previous. 4. Obesity (class I); with BMI of 33.6 this admission plus CJ; on CPAP adding to the burden of disease outlined from #1 - #3 - Weight loss we recommended. Check TSH. Maintain nocturnal CPAP as before. This complicates his case and may hamper recovery. 5. Remote history of tobacco abuse (quit 1975); with subsequent restrictive lung disease plus chronic hypoxic respiratory failure; on 2L NC nocturnal addingto the medical complexity of #1 - #4 - Stable with no evidence of acute flare atthis time. Continue as needed nebulizers. 6. Essential hypertension; on carvedilol, furosemide and spironolactone - Maintain current therapy.Give IV hydralazine as needed for systolic blood pressure greater than 160 mmHg. 7. History of RBBB with LAFB - Noted. 8. History of frequent PVCs - Noted. We will monitor closely on PCU for possible recurrence. 9. DM-2; of unknown control on metformin, empagliflozin, insulin aspart 22 units SQ 3 times daily AC and insulin glargine 40 units SQ at bedtime - ADA/cardiac diet. FSBS q. AC/HS plus SSI. Continue long and short acting insulins at ~60% of previous dose to prevent hypoglycemia. 10. Hyperlipidemia; on atorvastatin and colestipol - Resume present treatment and check Lipid Profile in light of #1. 11. History of blindness in Left eye - Noted. 12. JASMIN; on ferrous sulfate twice daily - Stable with hemoglobin of 14.3 g/dL and MCV of 81.8 fL present on admission. 13. RLS - Stable. 14. History of pneumonia due to COVID-19 - Noted with no signs of recurrence atthis time. 15. History of bladder cancer; s/p excision - Noted. 16. OAB; on solifenacin - Continue solifenacin as before. 17. BPH; s/p TURP (2020) on finasteride and tamsulosin twice daily - Present treatment to be continued. 18. GERD; on famotidine twice daily - Maintain H2 salvador as before. 19. Psoriatic arthritis and OA; with chronic back pain on new nuvoflex causing patient to ambulate with a walker prn at baseline - Stable. PT/OT and case management consult treat on rounds in the a.m. further recommendations without appreciated in advance. 20. DVT prophylaxis - Patient re-started on apixaban for #2. Total time: Approximately (but not less than) 85 minutes. Charges/Coding Visit Charges OBSV E&M: 16544 Observ/hosp same date L3 04/30/25 0645 Cosigner Signature (if applicable): CC: Dr. Narda Prather DO; Dr. Mathieu Virgen MD~ Signed [facility]08-13-2025 Discharge summary Author Yola Canales [facility] Note Date/Time April 29, 2025 7: 15pm [facility] Medical Records Department [address] [place] [address] Emergency Department Summary 04/29/25 MR#: [id number] Acct: [id number] Name: FAISAL ALARCON Rep #:[id number] : 1945 80 From: Yola Canales MD PCP: Dr. Mathieu Virgen MD Status:REG E R Location: ED HPI History of Present Illness Chief Complaint: Syncope Narrative Narrative: Patient is an 80-year-old male presenting to emergency department for a syncopalevent. Patient has an extensive past medical history as below including A-fib, restrictive lung disease, sleep apnea, frequent PVCs, CAD and hypertension. Patient states that for the past month he has been off his Eliquis because of financial reasons. Reports that today he was exerting himself outside when he came in to talk to his daughter. States he was leaning against the counter talking to her when he lost consciousness. Daughter states it lasted less than a minute. Patient denies any prodromal symptoms including lightheadedness, dizziness, visual changes, chest pain. Patient reports that he has been short of breath for the past few months. He normally wears oxygen at nighttime only. Denies fever or chills. Denies productive cough. Denies abdominal pain, nausea, vomiting, diarrhea. Denies any dysuria or hematuria. States this is never happened to him before. He did eat and drink today. [facility] Medical History Diastolic dysfunction Dyspnea Diabetes Sleep apnea Atrial fibrillation Cancer Walker as ambulation aid Arthritis Prostate disease Complete edentulism, class III Gastric reflux CPAP (continuous positive airway pressure) dependence History of pain when walking History of edema History of echocardiogram History of stress test Cardiology follow-up encounter Blindness Bladder cancer Restrictive airway disease Morbid obesity Pneumonia due to COVID-19 virus Left lower lobe pneumonia Acute respiratory failure with hypoxia Wears hearing aid Wears glasses Insulin dependent diabetes mellitus Psoriasis High cholesterol Restless legs Back pain Injury of back Dietary restriction Former smoker Shortness of breath on exertion Hypertension Right bundle branch 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 Nonobstructive atherosclerosis of coronary artery Obesity BPH (benign prostatic hyperplasia) Hyperlipidemia Essential (primary) hypertension Atrial fibrillation with RVR (02/05/21) Home Medications ?Medication ?Instructions ?Recorded ?Last Taken ?Type apixaban 5 mg tablet (Eliquis) 5 mg PO BID blood thinn er #180 tabs 02/22/21 05/03/24 Rx carvedilol 25 mg tablet 25 mg PO BID heart #180 tabs 02/22/21 05/07/24 09:30 Rx metformin 500 mg tablet,extended 1,000 mg PO BID blood sugar 10/24/21 Unknown History release 24 hr albuterol sulfate 90 mcg/actuation 1 inh inhalation Q6 H PRN SOB #8.5 11/30/21 Unknown Rx aerosol inhaler grams finasteride 5 mg tablet 5 mg PO DAILY bph 10/27/22 U nknown History NUVOFLEX 1 cap PO DAILY arthritis 03/10 Unknown History famotidine 20 mg tablet 20 mg PO BID misti 09/22/23 09:30 History insulin glargine 100 unit/mL (3 40 unit subcut QHS alcides bete 09/22/23 Unknown History mL) subcutaneous pen (Basaglar KwikPen U-100 Insulin) turmeric root extract 500 mg 1,000 mg PO DAILY viatmin 10/24/23 Unknown History capsule diltiazem HCl 120 mg 120 mg PO DAILY heart Unknown History capsule,extended release 24 hr (Cartia XT) tamsulosin 0.4 mg capsule 0.4 mg PO BID bph 07/10/24 1 History cholecalciferol (vitamin D3) 50 2,000 unit PO DAILY myles pplement 07/22/24 Unknown History mcg (2,000 unit) capsule (Vitamin D3) solifenacin 10 mg tablet 10 mg PO DAILY bladder 07/22 Unknown History empagliflozin 25 mg tablet 25 mg PO DAILY #30 tabs 05/10 Unknown Rx (Jardiance) flecainide 100 mg tablet 100 mg PO Q12H heart #180 ta bs 08/13/24 Unknown Rx atorvastatin 20 mg tablet 20 mg PO DAILY 09/01/24 Unkn own History colestipol 1 gram tablet 1 g PO DAILY PRN [facility] 09/03/24 Unknown History furosemide 40 mg tablet (Lasix) 40 mg PO QAM #60 tabs 09/23/24 Unknown Rx spironolactone 25 mg tablet 25 mg PO DAILY #30 tabs Unknown Rx isosorbide mononitrate 30 mg 30 mg PO DAILY #90 tabs 0 10/22/24 Unknown Rx tablet,extended release 24 hr insulin aspart 22 unit subcut TID 01/19/25 Unknown History (niacinamide)(U-100) 100 unit/mL(3 mL) subcutaneous pen (Fiasp FlexTouch U-100 Insulin) mecobalamin (vitamin B12) 1,000 1,000 mcg PO DAILY 02/08 Unknown History mcg chewable tablet ferrous gluconate 324 mg (37.5 mg 324 mg PO BID #60 ta bs 04/08/25 Unknown Rx iron) tablet Allergy/AdvReac Type Severity Reaction Status Date / Time amoxicillin Allergy Rash Verified 04/29/25 15:29 Family History Sister Colon cancer Brother Diabetes Mother Diabetes Heart disease Cancer Father Heart disease Cancer Diabetes Surgical History Bladder disease Hx of right cataract extraction Hx of colonoscopy Hx of transurethral resection of prostate H/O wrist surgery History of left heart catheterization (02/07/21) Hx of umbilical hernia repair Hx of cholecystectomy Status post surgical manipulation of ankle joint H/O hemorrhoidectomy Social History household members: spouse Smoking Status: Former smoker how long ago did patient quit smokin years ago alcohol intake: never substance use type: does not use caffeine: Yes Type: coffee Number of servings: 1 ROS ROS ED ROS Narrative see HPI EXAM Physical Exam Narrative Exam Narrative: Vital signs: Reviewed General: Alert and oriented. No acute distress. Chronically unwell appearing. HEENT: Head is normocephalic and atraumatic, sinuses nontender, pupils equal round and reactive. Nares are patent. Oropharynx and throat exams normal. Dry mucous membranes. Neck: Supple without lymphadenopathy nontender Cardiovascular: Regular rate and rhythm, no murmurs. No rubs or gallops. Normal S1 and S2 Respiratory: Clear to auscultation bilaterally. No wheezes, rales, rhonchi. On 2 L NC. Abdominal: Soft and nontender. Normal bowel sounds. No guarding or rebound. Nonsurgical abdomen Extremities: No tenderness. No lower extremity edema. No bruising. Normal rangeof motion. Normal sensation. Skin: No rash or redness. Neurological: Cranial nerves II through XII are grossly intact. Normal strengthand sensation. Normal cerebellar function The rest of the physical exam is unremarkable Const Vital Signs: 04/29/25 15:29 04/29/25 15:44 04/29/25 15:44 Temperature 98 F Temperature Source Oral Pulse Rate 78 Respiratory Rate 20 H Respiratory Effort Respiratory Pattern Blood Pressure 115/65 Blood Pressure Mean 81 Pulse Ox 94 95 95 Oxygen Delivery Method Nasal Cannula Room Air Nasal Cannula Oxygen Flow Rate (L/min) 2 2 04/29/25 15:44 04/29/25 16:05 04/29/25 17:28 Temperature Temperature Source Pulse Rate 73 Respiratory Rate 13 Respiratory Effort Normal Non-Labored Respiratory Pattern Normal Blood Pressure 113/75 Blood Pressure Mean 87 Pulse Ox 97 Oxygen Delivery Method Nasal Cannula Nasal Cannula Oxygen Flow Rate (L/min) 2 2 MDM MDM MDM Narrative Medical decision making narrative: Patient is an 80-year-old male presenting to the emergency department for syncopal event. Patient was seen and examined. Vitals are stable. Patient resting in bed comfortably no acute distress. Differential includes but not limited to: ACS, PE, orthostatic hypotension, vasovagal episode, electrolyte abnormality EKG shows sinus rhythm with first-degree AV block. Bifascicular block. No significant ST elevation or depression. No arrhythmia. CBC with no leukocytosis and a normal hemoglobin. BMP with slightly elevated BUN of 24, otherwise no significant abnormalities. Troponin and reflex are baseline for him at 43 and 42. Magnesium within normal limits. CT shows no evidence of pulmonary embolism. No pneumonia or pneumothorax. Fluid bolus given, appears dry on exam and labs appear to be slightly hemoconcentrated. Will be slow with fluids given heart failure history. Discussed findings with patient and daughter at bedside. Recommended admission for further syncopal workup. They were agreeable. Admitted to the hospitalist for further management. Impression syncope hx of CAD Reactive lymph nodes hx of a fib Lab Data Attestation: I reviewed the patient's lab results. Labs: Laboratory Results - last 24 hr 04/29/25 04/29/25 16:00 17:50 WBC 10.3 RBC 5.23 Hgb 14.3 Hct 42.8 MCV 81.8 MCH 27.3 MCHC 33.4 RDW Std Deviation 44.9 H RDW Coeff of Lucia 14.9 H Plt Count 327 MPV 10.5 Immature Gran % (Auto) 0.400 Neut % (Auto) 71.4 H Lymph % (Auto) 14.5 L Lea % (Auto) 10.5 H Eos % (Auto) 2.8 Baso % (Auto) 0.4 Absolute Neuts (auto) 7.3 Absolute Lymphs (auto) 1.49 Nucleated RBC % 0 Sodium 135 Potassium 4.1 Chloride 100 Carbon Dioxide 19.9 L Anion Gap 15 BUN 24 H Creatinine 1.20 Estim Creat Clear Calc 64.29 Est GFR (MDRD) Non-Af 61 BUN/Creatinine Ratio 19.8 Glucose 155 H Calcium 9.3 Magnesium 2.3 H Troponin T High Sens 43 H D Troponin T Hi Sens 2 Hr 42 H Radiography Diagnostic Testing: Clinical Impression(s) from Imaging Studies Chest CTA 04/29/25 17:15 IMPRESSION: 1. No pulmonary embolism. 2. Scattered mediastinal lymph nodes some of which are upper limits of normal in size and are most likely reactive lymph nodes. Reading Location: [facility] Management Discussion w/another healthcare provider: Hospitalist Discharge Plan Triage Chief Complaint: Syncope ED Provider: Yola Canales Dx/Rx/DC Orders Prescriptions: No Action Eliquis 5 mg tablet 5 mg PO BID Qty: 180 3RF carvedilol 25 mg tablet 25 mg PO BID Qty: 180 3RF metformin 500 mg tablet extended release 24 hr 1,000 mg PO BID albuterol sulfate 90 mcg/actuation HFA aerosol inhaler 1 inh INHALATION Q6H PRN (Reason: SOB) Qty: 8.5 6RF turmeric root extract 500 mg capsule 1,000 mg PO DAILY flecainide 100 mg tablet 100 mg PO Q12H Qty: 180 3RF furosemide [Lasix] 40 mg tablet 40 mg PO QAM Qty: 60 11RF Patient Comments: takes two pills for weight gain >4lbs spironolactone 25 mg tablet 25 mg PO DAILY Qty: 30 11RF ferrous gluconate 324 mg (37.5 mg iron) tablet 324 mg PO BID Qty: 60 3RF colestipol 1 gram tablet 1 g PO DAILY PRN (Reason: [facility]) famotidine 20 mg tablet 20 mg PO BID Patient Comments: take 1 tablet by mouth twice a day insulin glargine [Basaglar KwikPen U-100 Insulin] 100 unit/mL (3 mL) insulin pen 40 unit subcut QHS NUVOFLEX 1 cap PO DAILY solifenacin 10 mg tablet 10 mg PO DAILY cholecalciferol (vitamin D3) [Vitamin D3] 50 mcg (2,000 unit) capsule 2,000 unit PO DAILY Jardiance 25 mg Tablet 25 mg PO DAILY Qty: 30 2RF Fiasp FlexTouch U-100 Insulin 100 unit/mL (3 mL) insulin pen 22 unit subcut TID mecobalamin (vitamin B12) 1,000 mcg tablet,chewable 1,000 mcg PO DAILY diltiazem HCl [Cartia XT] 120 mg capsule,extended release 24hr 120 mg PO DAILY tamsulosin 0.4 mg capsule 0.4 mg PO BID Patient Comments: per family hasn't started at home as was in & out of hospital though had prevtaken during prev hospitalization. atorvastatin 20 mg tablet 20 mg PO DAILY finasteride 5 mg tablet 5 mg PO DAILY isosorbide mononitrate 30 mg tablet extended release 24 hr 30 mg PO DAILY Qty: 90 3RF Primary Care Provider: Mathieu Virgen Referrals: Mathieu Virgen MD [Primary Care Provider] - Print Language: Australian What to do if you have Problems For any increased pain, shortness of breath, bleeding, nausea or vomiting, chestpain, or any unexpected problems, contact your Primary Care Provider. Call [facility] ([phone]) or report to the closest Emergency Room. Call 911 if necessary. 04/29/251914 <Electronically signed by Yola Canales MD> Cosigner Signature (if applicable): CC: Dr. Mathieu Virgen MD ~ Signed [facility] Work Phone: [phone] Discharge summary [facility] Medical Records Department [address] [place] [address] Emergency Department Summary 04/29/25 MR#: [id number] Acct: [id number] Name: FAISAL ALARCON Rep #:[id number] : 1945 80 From: Yola Canales MD PCP: Dr. Mathieu Virgen MD Status:REG E R Location: ED HPI History of Present Illness Chief Complaint: Syncope Narrative Narrative: Patient is an 80-year-old male presenting to emergency department for a syncopalevent. Patient has an extensive past medical history as below including A-fib, restrictive lung disease, sleep apnea, frequent PVCs, CAD and hypertension. Patient states that for the past month he has been off his Eliquis because of financial reasons. Reports that today he was exerting himself outside when he came in to talk to his daughter. States he was leaning against the counter talking to her when he lost consciousness. Daughter states it lasted less than a minute. Patient denies any prodromal symptoms including lightheadedness, dizziness, visual changes, chest pain. Patient reports that he has been short of breath for the past few months. He normally wears oxygen at nighttime only. Denies fever or chills. Denies productive cough. Denies abdominal pain, nausea, vomiting, diarrhea. Denies any dysuria or hematuria. States this is never happened to him before. He did eat and drink today. [facility] Medical History Diastolic dysfunction Dyspnea Diabetes Sleep apnea Atrial fibrillation Cancer Walker as ambulation aid Arthritis Prostate disease Complete edentulism, class III Gastric reflux CPAP (continuous positive airway pressure) dependence History of pain when walking History of edema History of echocardiogram History of stress test Cardiology follow-up encounter Blindness Bladder cancer Restrictive airway disease Morbid obesity Pneumonia due to COVID-19 virus Left lower lobe pneumonia Acute respiratory failure with hypoxia Wears hearing aid Wears glasses Insulin dependent diabetes mellitus Psoriasis High cholesterol Restless legs Back pain Injury of back Dietary restriction Former smoker Shortness of breath on exertion Hypertension Right bundle branch 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 Nonobstructive atherosclerosis of coronary artery Obesity BPH (benign prostatic hyperplasia) Hyperlipidemia Essential (primary) hypertension Atrial fibrillation with RVR (02/05/21) Home Medications ?Medication ?Instructions ?Recorded ?Last Taken ?Type apixaban 5 mg tablet (Eliquis) 5 mg PO BID blood thinn er #180 tabs 02/22/21 05/03/24 Rx carvedilol 25 mg tablet 25 mg PO BID heart #180 tabs 02/22/21 05/07/24 09:30 Rx metformin 500 mg tablet,extended 1,000 mg PO BID blood sugar 10/24/21 Unknown History release 24 hr albuterol sulfate 90 mcg/actuation 1 inh inhalation Q6 H PRN SOB #8.5 11/30/21 Unknown Rx aerosol inhaler grams finasteride 5 mg tablet 5 mg PO DAILY bph 10/27/22 U nknown History NUVOFLEX 1 cap PO DAILY arthritis 03/10 Unknown History famotidine 20 mg tablet 20 mg PO BID misti 09/22/23 09:30 History insulin glargine 100 unit/mL (3 40 unit subcut QHS alcides bete 09/22/23 Unknown History mL) subcutaneous pen (Gianni Maldonado U-100 Insulin) turmeric root extract 500 mg 1,000 mg PO DAILY viatmin 10/24/23 Unknown History capsule diltiazem HCl 120 mg 120 mg PO DAILY heart Unknown History capsule,extended release 24 hr (Cartia XT) tamsulosin 0.4 mg capsule 0.4 mg PO BID bph 07/10/24 1 History cholecalciferol (vitamin D3) 50 2,000 unit PO DAILY myles pplement 07/22/24 Unknown History mcg (2,000 unit) capsule (Vitamin D3) solifenacin 10 mg tablet 10 mg PO DAILY bladder 07/22 Unknown History empagliflozin 25 mg tablet 25 mg PO DAILY #30 tabs 05/10 Unknown Rx (Jardiance) flecainide 100 mg tablet 100 mg PO Q12H heart #180 ta bs 08/13/24 Unknown Rx atorvastatin 20 mg tablet 20 mg PO DAILY 09/01/24 Unkn own History colestipol 1 gram tablet 1 g PO DAILY PRN gen health 09/03/24 Unknown History furosemide 40 mg tablet (Lasix) 40 mg PO QAM #60 tabs 09/23/24 Unknown Rx spironolactone 25 mg tablet 25 mg PO DAILY #30 tabs Unknown Rx isosorbide mononitrate 30 mg 30 mg PO DAILY #90 tabs 0 10/22/24 Unknown Rx tablet,extended release 24 hr insulin aspart 22 unit subcut TID 01/19/25 Unknown History (niacinamide)(U-100) 100 unit/mL(3 mL) subcutaneous pen (Fiasp FlexTouch U-100 Insulin) mecobalamin (vitamin B12) 1,000 1,000 mcg PO DAILY 02/08 Unknown History mcg chewable tablet ferrous gluconate 324 mg (37.5 mg 324 mg PO BID #60 ta bs 04/08/25 Unknown Rx iron) tablet Allergy/AdvReac Type Severity Reaction Status Date / Time amoxicillin Allergy Rash Verified 04/29/25 15:29 Family History Sister Colon cancer Brother Diabetes Mother Diabetes Heart disease Cancer Father Heart disease Cancer Diabetes Surgical History Bladder disease Hx of right cataract extraction Hx of colonoscopy Hx of transurethral resection of prostate H/O wrist surgery History of left heart catheterization (02/07/21) Hx of umbilical hernia repair Hx of cholecystectomy Status post surgical manipulation of ankle joint H/O hemorrhoidectomy Social History household members: spouse Smoking Status: Former smoker how long ago did patient quit smokin years ago alcohol intake: never substance use type: does not use caffeine: Yes Type: coffee Number of servings: 1 ROS ROS ED ROS Narrative see HPI EXAM Physical Exam Narrative Exam Narrative: Vital signs: Reviewed General: Alert and oriented. No acute distress. Chronically unwell appearing. HEENT: Head is normocephalic and atraumatic, sinuses nontender, pupils equal round and reactive. Nares are patent. Oropharynx and throat exams normal. Dry mucous membranes. Neck: Supple without lymphadenopathy nontender Cardiovascular: Regular rate and rhythm, no murmurs. No rubs or gallops. Normal S1 and S2 Respiratory: Clear to auscultation bilaterally. No wheezes, rales, rhonchi. On 2 L NC. Abdominal: Soft and nontender. Normal bowel sounds. No guarding or rebound. Nonsurgical abdomen Extremities: No tenderness. No lower extremity edema. No bruising. Normal rangeof motion. Normal sensation. Skin: No rash or redness. Neurological: Cranial nerves II through XII are grossly intact. Normal strengthand sensation. Normal cerebellar function The rest of the physical exam is unremarkable Const Vital Signs: 04/29/25 15:29 04/29/25 15:44 04/29/25 15:44 Temperature 98 F Temperature Source Oral Pulse Rate 78 Respiratory Rate 20 H Respiratory Effort Respiratory Pattern Blood Pressure 115/65 Blood Pressure Mean 81 Pulse Ox 94 95 95 Oxygen Delivery Method Nasal Cannula Room Air Nasal Cannula Oxygen Flow Rate (L/min) 2 2 04/29/25 15:44 04/29/25 16:05 04/29/25 17:28 Temperature Temperature Source Pulse Rate 73 Respiratory Rate 13 Respiratory Effort Normal Non-Labored Respiratory Pattern Normal Blood Pressure 113/75 Blood Pressure Mean 87 Pulse Ox 97 Oxygen Delivery Method Nasal Cannula Nasal Cannula Oxygen Flow Rate (L/min) 2 2 MDM MDM MDM Narrative Medical decision making narrative: Patient is an 80-year-old male presenting to the emergency department for syncopal event. Patient was seen and examined. Vitals are stable. Patient resting in bed comfortably no acute distress. Differential includes but not limited to: ACS, PE, orthostatic hypotension, vasovagal episode, electrolyte abnormality EKG shows sinus rhythm with first-degree AV block. Bifascicular block. No significant ST elevation or depression. No arrhythmia. CBC with no leukocytosis and a normal hemoglobin. BMP with slightly elevated BUN of 24, otherwise no significant abnormalities. Troponin and reflex are baseline for him at 43 and 42. Magnesium within normal limits. CT shows no evidence of pulmonary embolism. No pneumonia or pneumothorax. Fluid bolus given, appears dry on exam and labs appear to be slightly hemoconcentrated. Will be slow with fluids given heart failure history. Discussed findings with patient and daughter at bedside. Recommended admission for further syncopal workup. They were agreeable. Admitted to the hospitalist for further management. Impression syncope hx of CAD Reactive lymph nodes hx of a fib Lab Data Attestation: I reviewed the patient's lab results. Labs: Laboratory Results - last 24 hr 04/29/25 04/29/25 16:00 17:50 WBC 10.3 RBC 5.23 Hgb 14.3 Hct 42.8 MCV 81.8 MCH 27.3 MCHC 33.4 RDW Std Deviation 44.9 H RDW Coeff of Lucia 14.9 H Plt Count 327 MPV 10.5 Immature Gran % (Auto) 0.400 Neut % (Auto) 71.4 H Lymph % (Auto) 14.5 L Lea % (Auto) 10.5 H Eos % (Auto) 2.8 Baso % (Auto) 0.4 Absolute Neuts (auto) 7.3 Absolute Lymphs (auto) 1.49 Nucleated RBC % 0 Sodium 135 Potassium 4.1 Chloride 100 Carbon Dioxide 19.9 L Anion Gap 15 BUN 24 H Creatinine 1.20 Estim Creat Clear Calc 64.29 Est GFR (MDRD) Non-Af 61 BUN/Creatinine Ratio 19.8 Glucose 155 H Calcium 9.3 Magnesium 2.3 H Troponin T High Sens 43 H D Troponin T Hi Sens 2 Hr 42 H Radiography Diagnostic Testing: Clinical Impression(s) from Imaging Studies Chest CTA 04/29/25 17:15 IMPRESSION: 1. No pulmonary embolism. 2. Scattered mediastinal lymph nodes some of which are upper limits of normal in size and are most likely reactive lymph nodes. Reading Location: [facility] Management Discussion w/another healthcare provider: Hospitalist Discharge Plan Triage Chief Complaint: Syncope ED Provider: Yola Canales Dx/Rx/DC Orders Prescriptions: No Action Eliquis 5 mg tablet 5 mg PO BID Qty: 180 3RF carvedilol 25 mg tablet 25 mg PO BID Qty: 180 3RF metformin 500 mg tablet extended release 24 hr 1,000 mg PO BID albuterol sulfate 90 mcg/actuation HFA aerosol inhaler 1 inh INHALATION Q6H PRN (Reason: SOB) Qty: 8.5 6RF turmeric root extract 500 mg capsule 1,000 mg PO DAILY flecainide 100 mg tablet 100 mg PO Q12H Qty: 180 3RF furosemide [Lasix] 40 mg tablet 40 mg PO QAM Qty: 60 11RF Patient Comments: takes two pills for weight gain >4lbs spironolactone 25 mg tablet 25 mg PO DAILY Qty: 30 11RF ferrous gluconate 324 mg (37.5 mg iron) tablet 324 mg PO BID Qty: 60 3RF colestipol 1 gram tablet 1 g PO DAILY PRN (Reason: [facility]) famotidine 20 mg tablet 20 mg PO BID Patient Comments: take 1 tablet by mouth twice a day insulin glargine [Basaglar KwikPen U-100 Insulin] 100 unit/mL (3 mL) insulin pen 40 unit subcut QHS NUVOFLEX 1 cap PO DAILY solifenacin 10 mg tablet 10 mg PO DAILY cholecalciferol (vitamin D3) [Vitamin D3] 50 mcg (2,000 unit) capsule 2,000 unit PO DAILY Jardiance 25 mg Tablet 25 mg PO DAILY Qty: 30 2RF Fiasp FlexTouch U-100 Insulin 100 unit/mL (3 mL) insulin pen 22 unit subcut TID mecobalamin (vitamin B12) 1,000 mcg tablet,chewable 1,000 mcg PO DAILY diltiazem HCl [Cartia XT] 120 mg capsule,extended release 24hr 120 mg PO DAILY tamsulosin 0.4 mg capsule 0.4 mg PO BID Patient Comments: per family hasn't started at home as was in & out of hospital though had prevtaken during prev hospitalization. atorvastatin 20 mg tablet 20 mg PO DAILY finasteride 5 mg tablet 5 mg PO DAILY isosorbide mononitrate 30 mg tablet extended release 24 hr 30 mg PO DAILY Qty: 90 3RF Primary Care Provider: Mathieu Virgen Referrals: Mathieu Virgen MD [Primary Care Provider] - Print Language: Australian What to do if you have Problems For any increased pain, shortness of breath, bleeding, nausea or vomiting, chestpain, or any unexpected problems, contact your Primary Care Provider. Call [facility] ([phone]) or report tothe closest Emergency Room. Call 911 if necessary. 04/29/251914 Cosigner Signature (if applicable): CC: Dr. Mathieu Virgen MD ~ Signed [facility]08-13-2025 Radiology Diagnostic study note [facility] Imaging Services [address] [place], [place] [id number] CTA Chest W/WO Contrast MR#: [id number] Acct: [id number] Name: FAISAL ALARCON Rep #: [id number] : 1945 M 80 From: Alcira Tierney MD PCP: Dr. Mathieu Virgen MD Status: REG E R Study:CTA Chest W/WO Contrast Date of Exam: 04/29/25 Exam# [id number] Ordering Dr: Arnulfo Canales MD EXAM: CT Angiography Chest Without and With Intravenous Contrast CLINICAL INDICATION: RULE OUT PE TECHNIQUE: Axial computed tomographic angiography images of the chest without and with intravenous contrast. This CT exam was performed using one or more of the following dose reduction techniques: automated exposure control,adjustment of the mA and/or kV according to patient size, and/or use of iterative reconstruction technique. MIP reconstructed images were created and reviewed. COMPARISON: No relevant prior studies available. FINDINGS: PULMONARY ARTERIES: Unremarkable. No pulmonary embolism. AORTA: No acute findings. No thoracic aortic aneurysm. LUNGS AND PLEURAL SPACES: Unremarkable. No mass. No consolidation. No significant effusion. No pneumothorax. HEART: Unremarkable. No cardiomegaly. No significant pericardial effusion. No evidence of RV dysfunction. MEDIASTINUM: Scattered mediastinal lymph nodes some of which are upper limits of normal in size andare most likely reactive lymph nodes. BONES/JOINTS: No acute fracture. No dislocation. SOFT TISSUES: Unremarkable. LYMPH NODES: See above. CT/CTA Chest W/WO Contrast IMPRESSION: 1. No pulmonary embolism. 2. Scattered mediastinal lymph nodes some of which are upper limits of normal in size and are most likely reactive lymph nodes. Reading Location: [facility] CC: Dr. Yola Canales MD; Dr. Mathieu Virgen MD ~ Pipe Caulker: Signed [facility]07-18-2025 Telephone encounter Note* Telephone Encounter - Jaylene Henley LPN - 04/03/2025 11:11 AM EDT Faxed application. [facility]07-18-2025 Miscellaneous Notes* Telephone Encounter - Jaylene Henley LPN - 04/03/2025 11:11 AM EDT Faxed application. * Telephone Encounter - Mathieu Virgen MD - 04/03/2025 10:45 AM EDT done * Telephone Encounter - Janet King MA - 04/02/2025 4:14 PM EDT Type of form: Prescription Assistance Form received via walk in When form is completed, Fax form to [facility] Form has been forwarded to Physician Desk: Dr. Virgen Prescription pended to go to [facility], as listed on form. Janet King MA [facility] Telephone encounter Note * Telephone Encounter - Mathieu Virgen MD - 04/03/2025 10:45 AM EDT done [facility]07-17-2025 Telephone encounter Note* Telephone Encounter - Janet King MA - 04/02/2025 4:14 PM EDT Type of form: Prescription Assistance Form received via walk in When form is completed, Fax form to [facility] Form has been forwarded to Physician Desk: Dr. Virgen Prescription pended to go to [facility], as listed on form. Janet King MA [facility]07-16-2025 Radiology Diagnostic study note [facility] Imaging Services [address] [place] [id number] Chest without Contrast MR#: [id number] Acct: [id number] Name: FAISAL ALARCON Rep #: [id number] : 1945 M 79 From: Ernst Ngo DO PCP: Dr. Mathieu Virgen MD Status: REG C CLEM Study:Chest without Contrast Date of Exam: 04/01/25 Exam# [id number] Ordering Dr: Megan Macario SENIOR PROCESS ANALYST-C PROCEDURE: CHEST WITHOUT CONTRAST 04/01/2025 REASON FOR [...] nonaneurysmal thoracic aorta. Normal caliber pulmonary arteries. Nobulky mediastinal or hilar adenopathy. Several calcified lymph nodes consistent with old granulomatous disease. No significantfindings in the visualized upper abdomen. Gynecomastia. Central [...] Mathieu Virgen MD; Megan Macario NP ~ Pipe Caulker: Signed [facility]07-11-2025 Telephone encounter Note* Telephone Encounter - Christian Bob LPN - 03/27/2025 4:01 PM EDT Rx(s) need sent to [facility] d/t [facility] is closing. Christian Bob LPN [facility]07-11-2025 Miscellaneous Notes* Telephone Encounter - Christian Bob LPN - 03/27/2025 4:01 PM EDT Rx(s) need sent to [facility] d/t [facility] is closing. Christian Bob LPN * Telephone Encounter - Nisha Wilson - 03/27/2025 3:38 PM EDT Patient's daughterFarida calling today asking if the medication refill can be completed before theend of the day. Patient is out of the medication. [facility] Telephone encounter Note * Telephone Encounter - Nisha Wilson - 03/27/2025 3:38 PM EDT Patient's daughterFarida calling today asking if the medication refill can be completed before theend of the day. Patient is out of the medication. [facility]06-16-2025 Procedure notey [facility] Pulmonary Services/Neurology [address] [place] [address] MR#: [id number] Acct: [id number] Name: FAISAL ALARCON Rep #:[id number] : 1945 79 From: Marvin Reeves DO Referring Dr: Megan Macario SENIOR PROCESS ANALYST-C Status: REG CLI Location: PSN Date: Sex: M C PSN 6 Minute Walk Test 6 Minute Walk Test 6 Minute Walk Test: 6 Minute Walk Test PSN:6-Minute Walk Test Start: 02/26/25 14:00 Freq: Status: Active Protocol: RESP.6MINW Document 02/26/25 14:00 [facility] (Rec: 02/26/25 14:37 [facility] [id number]) 6 Minute Walk Test Date Performed 02/26/25 Time Performed 13:45 Height 6 ft 1 in Weight: 264 lb Weight in Pounds 264.[address]: Megan Macario Assistive device None used: Pre-test Oxygen Delivery Room Air Method Pulse Ox (%) 94 Pulse Rate (60-100 82 beats/min) Dyspnea Bruce Scale ( 0 0-10) Exertion Bruce Scale 6 (6-20) 1st minute Oxygen Delivery Room Air Method Pulse Ox (%) 95 Pulse Rate (60-100 88 beats/min) Dyspnea Bruce Scale ( 1 0-10) Number of Rests 0 Taken 2nd minute Oxygen Delivery Room Air Method Pulse Ox (%) 92 Pulse Rate (60-100 90 beats/min) Dyspnea Bruce Scale ( 1 0-10) Number of Rests 0 Taken 3rd minute Oxygen Delivery Room Air Method Pulse Ox (%) 91 Pulse Rate (60-100 89 beats/min) Dyspnea Bruce Scale ( 3 0-10) Number of Rests 0 Taken Reported Symptoms Increased Work of Breathing 4th minute Oxygen Delivery Room Air Method Pulse Ox (%) 89 Pulse Rate (60-100 91 beats/min) Dyspnea Bruce Scale ( 3 0-10) Exertion Bruce Scale 10 (6-20) Number of Rests 1 Taken Reported Symptoms Increased Work of Breathing 5th minute Oxygen Delivery Room Air Method Pulse Ox (%) 90 Pulse Rate (60-100 89 beats/min) Dyspnea Bruce Scale ( 3 0-10) Number of Rests 1 Taken Reported Symptoms Increased Work of Breathing 6th minute Oxygen Delivery Room Air Method Pulse Ox (%) 91 Pulse Rate (60-100 87 beats/min) Dyspnea Bruce Scale ( 2 0-10) Number of Rests 1 Taken Reported Symptoms Increased Work of Breathing Post-test Oxygen Delivery Room Air Method Pulse Ox (%) 95 Pulse Rate (60-100 84 beats/min) Dyspnea Bruce Scale ( 0 0-10) Full Laps Walked 6 Partial Lap, Number 12 of Tiles Walked Total Distance 366 Walked (ft) 02/26/25 14:07 Cardiopulmonary Services by Amna Richter PATIENT ARRIVED FOR WALK TESTING VIA MOTORIZED SCOOTER. HE SAID HE USES IT FOR LONG DISTANCES AND CAN WALK SHORT DISTANCES WITHOUT ASSISTANCE. HE DECLINED OFFER OF PUSHING W/C OR WHEELED WALKER FOR TESTING. HE WAS STABLE ON HIS FEET, WALKED SLOW, AND WAS ABLE TO WALK 366 FEET DURING THE TEST. HE STOPPED TO REST AT 4 MINUTES INTO TESTING AND RESTED FOR THE REMAINDER OF THE 6 MINUTES. REST WAS TAKEN D/T INCREASED WOB AND LEG FATIGUE. HE SAID HE DOESN'T USUALLY WALK THATMUCH. Initialized on 02/26/25 14:07 - END OF NOTE Interpretation Interpretation: The patient ambulated 366 feet over the course of 6 minutes beginning on room air without assistivedevices. Pretesting oxygen saturation was noted to be 94%on room air. With ambulation, the dylon oxygen saturation was 89%. This represents a significant exertional oxygen desaturation, consistent with a pulmonary limitation to exercise tolerance. Recommendations Recommendations: There is no indication for the use of supplemental oxygen at this time. However, close interval follow-up is recommended, given the degree of oxygen desaturation noted during this study. 03/02/25 1016 O> Date _ Marvin Reeves DO CC: ~ Date Dictated: 03/02/25 1015 Date Transcribed: 03/02/25 1015 Pipe Caulker: Dr. Marvin Reeves DO Signed [facility]05-28-2025 Miscellaneous Notes* Telephone Encounter - Jaylene Henley LPN - 02/11/2025 9:09 AM EDT [facility] requesting DM note faxed to them documenting diabetes visit. Sent as requested. documented in this encounterSumma Health05-28-2025 Telephone encounter Note * Telephone Encounter - Jaylene Henley LPN - 02/11/2025 9:09 AM EDT [facility] requesting DM note faxed to them documenting diabetes visit. Sent as requested. [facility]05-23-2025 Telephone encounter Note* Telephone Encounter - Jaylene Henley LPN - 02/06/2025 1:16 PM EDT Scan on 02/05/2025 4:36 PM by ProviderJulian PAOlgaC: Hematology [facility]05-23-2025 Miscellaneous Notes* Telephone Encounter - Jaylene Henley LPN - 02/06/2025 1:16 PM EDT Scan on 02/05/2025 4:36 PM by ProviderJulian PA-C: Hematology documented in this encounterSumma Health05-12-2025 NoteHNO ID: [id number] Author: MATHIEU VIRGEN MD Service: ? Author [...] (1ST TIER UNIFINE PENTIPS) 31 gauge x 5/16" ndle 1 Each once daily. DX: E11.9 Insulin: Yes Insulin Syringe-Needle U-100 1/2 mL 29 x 1/2" syrg 1 Each once daily. USE ONE [...] Quit date: 09/17/1980 Year (more content not included)...[facility]05-12-2025 History of Present illness Narrative* Mathieu Virgen MD - 01/26/2025 2:19 PM EDT Patient presents with: Diabetes: A1C right now [...] (1ST TIER UNIFINE PENTIPS) 31 gauge x 5/16" ndle 1 Each once daily. DX: E11.9 Insulin: Yes Insulin Syringe-Needle U-100 1/2 mL 29 x 1/2" syrg 1 Each once daily. USE ONE [...] well. Mathieu Virgen MD documented in this encounterSumma Health05-10-2025 NoteHNO ID: [id number] Author: JAMAL MACE, ? Service: ? Author [...] of the left foot. - Reports feeling "something's going on" in the foot but denies significant pain. [...] (1ST TIER UNIFINE PENTIPS) 31 gauge x 5/16" ndle 1 Each once daily. DX: E11.9 Insulin: Yes 100 Each 11 Insulin Syringe-Needle U-100 1/2 mL 29 x 1/2" syrg 1 Each once daily. USE ONE [...] Sister Cancer Sister Co (more content not included)...[facility]05-10-2025 History of Present illness Narrative* Jamal Mace - 01/24/2025 7:08 AM EDT Consultation requested by Dr. Virgen for an opinion regarding fracture of metatarsal. My final recommendations will be communicated back to the requesting physician by way of shared Medical record or letter to requesting physician via US mail. Emma Malone is an 79-year-old male with a history of type 2 diabetes mellitus, presenting for evaluationof left foot fractures. Left Foot Fractures: - [...] of the left foot. - Reports feeling "something's going on" in the foot but denies significant pain. [...] mL) Inject 47 Units subcutaneouslydaily at bedtime. 15 mL 3 losartan (COZAAR) 25 mg tablet Take 0.5 tablets by mouth once daily. 45 tablet 3 insulin aspart, niacinamide, (FIASP FLEXTOUCH U-100 INSULIN) 100 unit/mL (3 mL) pen Inject 26 Unitssubcutaneously three times a day before meals. 8 [...] every afternoon. Ordered by cardiology Blood-Glucose Sensor ([employer] G7 SENSOR) sayra Apply new sensor every [...] every 4 hours asneeded. 1 Each 1 aspirin 81 mg chewable tablet Take 81 mg by mouth once daily. insulin needles, DISPOSABLE, (1ST TIER UNIFINE PENTIPS) 31 gauge x 5/16" ndle 1 Each once daily. DX: E11.9 Insulin: Yes 100 Each 11 Insulin Syringe-Needle U-100 1/2 mL 29 x 1/2" syrg 1 Each once daily. USE ONE [...] and posterior tibial pulses palpable bilaterally; capillary refilltime <5 seconds; skin temperature warm bilaterally; decreased [...] fracture of foot, unspecified laterality, initial encounter (S92.973L) - X-rays from January 12, 2025, show minimally displaced fractures of the second, third, and fourthmetatarsal neck of the left foot; heel spur [...] to prevent further displacement. Attestation Recording using ambient Eloqu[employer] software for draft documentation of the visit was discussed with the patient/authorized billing customer service representative; all questions welcomed and answered. Patient/authorized billing customer service representative agreed to proceed Jamal Mace DPM * Pricilla Kuhn LPN - 01/22/2025 3:23 PM EDT AMB ROOMING INTAKE FLOWSHEET DATA Pain Pain Level: 2 Pain Location: Foot-Left Description: Tenderness Duration Amount of Time: 2 Duration Units: Weeks Frequency: Intermittent Intervention/Comfort measure: Relaxation, Reposition Patient presents with: Left Foot - New, Pain, Swelling, Fracture Pricilla Kuhn LPN documented in this encounterSumma Health05-08-2025 History of Present illness Narrative* Malik Luna RT(R) - 01/22/2025 3:50 PM EDT Radiology Service Progress Note PATIENT [...] PATIENT PRESENTS WITH AN IMPLANTABLE OR ATTACHED HOGSHEAD WEIGHER: No RADIOLOGY DEPARTMENT: General X-ray: Exam(s) Completed: Lower Extremity X- Ray(s): Foot, Left PERIPHERAL IV DATA: Not applicable SIGNED BY: RT Natalie(R) January 22, 2025 4:02 PM documented in this encounterSumma Health05-08-2025 NoteHNO ID: [id number] Author: MALIK LUNA RT(R) Service: Radiology Author [...] PATIENT PRESENTS WITH AN IMPLANTABLE OR ATTACHED HOGSHEAD WEIGHER: No RADIOLOGY DEPARTMENT: General X-ray: Exam(s) Completed: Lower Extremity X-Ray(s): Foot, Left PERIPHERAL IV DATA: Not applicable SIGNED BY: RT Natalie(R) January 22, 2025 4:02 [facility]05-08-2025 Instructions* Patient Instructions* Jamal Mace - 01/22/2025 3:45 PM EDT Get an x-ray of your left foot today to check the healing of your fractured metatarsal necks. Schedule a repeat x-ray in about 3 weeks for follow?up monitoring of your fracture. Wear supportive, well-fitting footwear--avoid flip-flops or going barefoot--to protect your injuredfoot, especially as you have diabetes. Continue your usual diabetic foot care, checking your feet regularly and avoiding situations that might lead to injury, given the decreased vibratory sensation noted. documented in this encounterSumma Health05-08-2025 NoteHNO ID: [id number] Author: PRICILLA KUHN LPN Service: ? Author Type: LICENSED NURSE Type: Progress Notes Filed: 01/24/2025 07:08 Note Text: AMB ROOMING INTAKE FLOWSHEET DATA Pain Pain Level: 2 Pain Location: Foot-Left Description: Tenderness Duration Amount of Time: 2 Duration Units: Weeks Frequency: Intermittent Intervention/Comfort measure: Relaxation, Reposition Patient presents with: Left Foot - New, Pain, Swelling, Fracture [facility] Tele[facility] Note* Telephone Encounter - Liyah Monroy RN - 01/22/2025 8:17 AM EDT Jacki with [facility] called in and need the diagnosis the provider put on the CBC for the pathologistinterpretation. I let her know it was : Leukocytosis, unspecified type [D72.829] Liyah Monroy RN [facility]05-08-2025 Miscellaneous Notes* Telephone Encounter - Liyah Monroy RN - 01/22/2025 8:17 AM EDT Jacki with [facility] called in and need the diagnosis the provider put on the CBC for the pathologistinterpretation. I let her know it was : Leukocytosis, unspecified type [D72.829] Liyah Monroy RN documented in this encounterSumma Health05-07-2025 Evaluation note* Diagnosis Onset Date Resolution Status Admit Date History of atrial fibrillation acute January 21, [...] fibrillation chron ic January 26, 2025 9:38am Anemia acute April 08 9:06am History of atrial fibrillation acute April 08, 2025 9:06am Hypoxia acute April 08 9:06am Obesity (BMI 30-39.9) acute Mar 9:06am Obstructive sleep apnea acute J 2024 9:06am Restrictive lung disease acute April 08, 2025 9:06am Shortness of breath on exertion acut e April 08, 2025 9:06am [facility] Work Phone: 1(982) 252-216405-07-2025 Evaluation note* Diagnosis Onset Date Resolution Status Admit Date History of atrial fibrillation acute January 21, 2025 2:31pm Hypoxia acute January 21, 2025 2:31pm Obesity (BMI 30-39.9) acute January 21, 2025 2:31pm Obstructive sleep apnea acute 2024 2:31pm Shortness of breath on exertion acut e January 21, 2025 2:31pm Essential (primary) hypertension chr onic January 26, 2025 9:38am 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 January 26 9:38am Paroxysmal atrial fibrillation chron ic January 26, 2025 9:38am Anemia acute April 08 9:06am History of atrial fibrillation acute April 08, 2025 9:06am Hypoxia acute April 08 9:06am Obesity (BMI 30-39.9) acute Mar 9:06am Obstructive sleep apnea acute J monika2024 9:06am Restrictive lung disease acute April 08, 2025 9:06am Shortness of breath on exertion acut e April 08, 2025 9:06am Elevated troponin acute April 29, 2025 7:37pm History of CAD (coronary art andrey disease) acute April 29 7:37pm Medical non-compliance acute Au liz 2024 7:37pm Syncope acute April 29, 2 025 7:37pm Paroxysmal atrial fibrillation chron ic April 29, 2025 7:37pm [facility] Work Phone: 1(311) 264-930105-02-2025 Telephone encounter Note* Telephone Encounter - Lulu Walls MA - 01/16/2025 3:35 PM EDT Patients daughter came into office and picked up hard Rx for post op shoe. Lulu Walls MA [facility]05-02-2025 Miscellaneous Notes* Telephone Encounter - Lulu Walls [...] ask. Please call and advise. Liyah Monroy, RN * Telephone Encounter - Mathieu Virgen MD - 01/15/2025 12:04 PM EDT Let her know fractures of this type need followed by a specialist to ensure they heal correctly. * Telephone Encounter - Reanna Cloud - 01/15/2025 8:42 AM EDT Spoke with daughter to schedule podiatry appointments but she has questions re: what the podiatristwould do. Transferred to [facility] for assistance. * Telephone Encounter - Reanna [...] a post op shoe. documented in this encounterSumma Health05-01-2025 Telephone encounter Note * Telephone Encounter - Mathieu Virgen MD - 01/15/2025 2:13 PM EDT See below. Already wrote for post op shoe that can be obtained here or elsewhere. Script is on thisnote. In addition, she said earlier she had a boot at home. ??? [facility]05-01-2025 Telephone encounter Note* Telephone Encounter - Liyah Monroy, NILDA - 01/15/2025 12:47 PM EDT Pts daughter [...] Please call and advise. Liyah Monroy, NILDA [facility]05-01-2025 Telephone encounter Note* Telephone Encounter - Mathieu Virgen MD - 01/15/2025 12:04 PM EDT Let her know fractures of this type need followed by a specialist to ensure they heal correctly. [facility]05-01-2025 Telephone encounter Note* Telephone Encounter - Reanna Cloud - 01/15/2025 8:42 AM EDT Spoke with daughter to schedule podiatry appointments but she has questions re: what the podiatristwould do. Transferred to clinical for assistance. [facility]04-29-2025 Telephone encounter Note* Telephone Encounter - Reanna Cloud - 01/13/2025 8:28 AM EDT Attempted to contact daughter, Farida, but no answer and voicemail full. Should she call back, please schedule podiatry consult. [facility]04-29-2025 Telephone encounter Note* Telephone Encounter - Lulu Walls MA - 01/13/2025 8:06 AM EDT Spoke with both patient and his daughter Farida. Informed of result. Farida states patient already has a boot at home he can wear. Sending to schedulers for Podiatry consult. Lulu Walls MA [facility]04-29-2025 Miscellaneous Notes* Telephone Encounter - Julianna Lynn [...] 13, 2025 7:03 AM documented in this encounterSumma Health04-29-2025 Telephone encounter Note * Telephone Encounter - [...] Lynn LPN January 13, 2025 7:03 AM [facility]04-28-2025 Telephone encounter Note* Telephone Encounter - Mathieu Virgen MD - 01/12/2025 7:30 PM EDT Shows a fracture in his foot. See if can get into podiatry. See if we can get him in a post op shoe. [facility]04-28-2025 History of Present illness Narrative* Malik Luna [...] PATIENT PRESENTS WITH AN IMPLANTABLE OR ATTACHED HOGSHEAD WEIGHER: No RADIOLOGY DEPARTMENT: General X-ray: Exam(s) Completed: Lower Extremity X- Ray(s): Foot, Left PERIPHERAL IV DATA: Not applicable SIGNED BY: RT Natalie(Leslee) January 12, 2025 5:23 PM documented in this encounterSumma Health04-28-2025 NoteHNO ID: [id number] Author: MALIK LUNA RT(R) Service: Radiology Author [...] PATIENT PRESENTS WITH AN IMPLANTABLE OR ATTACHED HOGSHEAD WEIGHER: No RADIOLOGY DEPARTMENT: General X-ray: Exam(s) Completed: Lower Extremity X-Ray(s): Foot, Left PERIPHERAL IV DATA: Not applicable SIGNED BY: RT Natalie(R) January 12, 2025 5:23 [facility]04-28-2025 NoteHNO ID: [id number] Author: MATHIEU VIRGEN MD Service: ? Author [...] every afternoon. Ordered by cardiology Blood-Glucose Sensor ([employer] G7 SENSOR) sayra Apply new sensor every [...] (1ST TIER UNIFINE PENTIPS) 31 gauge x 5/16" ndle 1 Each once daily. DX: E11.9 Insulin: Yes Insulin Syringe-Needle U-100 1/2 mL 29 x 1/2" syrg 1 Each once daily. USE ONE [...] Reviewed current medications, allergie (more content not included)...[facility] [place]04-28-2025 History of Present illness Narrative* Mathieu Virgen [...] (1ST TIER UNIFINE PENTIPS) 31 gauge x 5/16" ndle 1 Each once daily. DX: E11.9 Insulin: Yes Insulin Syringe-Needle U-100 1/2 mL 29 x 1/2" syrg 1 Each once daily. USE ONE [...] LEFT Mathieu Virgen MD documented in this encounterCleveland [id number] Evaluation note* Diagnosis Onset Date Resolution Status Admit Date Essential (primary) hypertension chr onic December 11, 2024 1:09pm 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 December 11, 2024 1:09pm Paroxysmal atrial fibrillation chron ic December 11, 2024 1:09pm History of atrial fibrillation acute January 21, 2025 2:31pm Hypoxia acute January 21, 2025 2:31pm Obesity (BMI 30-39.9) acute January 21, 2025 2:31pm Obstructive sleep apnea acute M ay 2024 2:31pm Shortness of breath on exertion acut e January 21, 2025 2:31pm Essential (primary) hypertension chr onic January 26, 2025 9:38am 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 January 26, 2025 9 :38am Paroxysmal atrial fibrillation chron ic January 26, 2025 9:38am [facility] Work Phone: 1(504) 627-115303-27-2025 Evaluation note* Diagnosis Onset Date Resolution Status Admit Date Essential (primary) hypertension chr onic December 11, 2024 1:09pm 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 December 11, 2024 1:09pm Paroxysmal atrial fibrillation chron ic December 11, 2024 1:09pm History of atrial fibrillation acute January 21, 2025 2:31pm Hypoxia acute January 21, 2025 2:31pm Obesity (BMI 30-39.9) acute January 21, 2025 2:31pm Obstructive sleep apnea acute M ay 2024 2:31pm Shortness of breath on exertion [...] exertion acut e April 08, 2025 9:06am [facility] Work Phone: [phone]) [phone] Telephone encounter Note* Telephone Encounter - Tonia Ellis LPN - 12/04/2024 4:20 PM EDT Pt and caregiver notified via [employer] [facility]03-20-2025 Miscellaneous Notes* Telephone Encounter - Tonia Ellis LPN - 12/04/2024 4:20 PM EDT Pt and caregiver notified via [employer] * Telephone Encounter - Tonia Ellis LPN - 12/04/2024 11:51 AM EDT Rec'd and in scanned documents. Pharmacy notified. * Telephone Encounter - Reanna Brannon RN - 12/04/2024 11:17 AM EDT Medardo from [employer] calls and reports that patient's medication is approved until 09/06/2025. CaseNumber: [id number] Medardo is faxing over approval letter. Reanna Brannon RN * Telephone Encounter - Aly Mandel MA - 12/03/2024 5:55 PM EDT Received PA from pharmacy for Fiasp Flextouch. Tried to complete through covermymeds but was instructed to call [employer] at . Spoke to the [facility] who will submit info to pharmacy for PA. Aly Mandel MA documented in this encounterSumma Health03-20-2025 Telephone encounter Note * Telephone Encounter - Tonia Ellis LPN - 12/04/2024 11:51 AM EDT Rec'd and in scanned documents. Pharmacy notified. [facility]03-20-2025 Telephone encounter Note* Telephone Encounter - Reanna Brannon RN - 12/04/2024 11:17 AM EDT Medardo from [employer] calls and reports that patient's medication is approved until 09/06/2025. CaseNumber: [id number] Medardo is faxing over approval letter. Reanna Brannon RN [facility]03-19-2025 Telephone encounter Note* Telephone Encounter - Aly Mandel MA - 12/03/2024 5:55 PM EDT Received PA from pharmacy for Fiasp Flextouch. Tried to complete through covermymeds but was instructed to call [employer] at . Spoke to the [facility] who will submit info to pharmacy for PA. Aly Mandel MA [facility]03-18-2025 NoteHNO ID: [id number] Author: MATHIEU VIRGEN MD Service: ? Author [...] up at 12. Has been following with [facility]. Seeing pulmonary. Uro: follows with [...] a day before meals. Getting through [facility] insulin glargine (BASAGLAR KWIKPEN U-100 INSULIN) 100 unit/mL (3 mL) Inject 90 Units subcutaneously daily at bedtime. aspirin 81 mg chewable tablet Take 81 mg by mouth once daily. insulin needles, DISPOSABLE, (1ST TIER UNIFINE PENTIPS) 31 gauge x 5/16" ndle 1 Each once daily. DX: E11.9 Insulin: Yes Insulin Syringe-Needle U-100 1/2 mL 29 x 1/2" syrg 1 Each once daily. USE ONE SYRINGE FOR EACH DOSE/1PER DAY, (E11.9, Z79.4) Diabetes mellitus type 2, insulin dependent. Lancets (ACCU-CHEK SOFTCLIX LANCETS) lancets Test blood sugar(s) 1 times daily. Dx: 250.00. Insulin: Yes COMPOUNDED PRESCRIPTION 1 Each twice daily. Accucheck compact test strips, dx-NIDDM flecainide (TAMBOCOR) 150 mg tablet Take 1 tablet by mouth every 12 hours. 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 [...] and laser of bladder (more content not included)...[facility] [place]03-18-2025 History of Present illness Narrative* Mathieu Virgen [...] times a day before meals. Getting through [facility] insulin glargine (BASAGLAR KWIKPEN U-100 INSULIN) 100 unit/mL (3 mL) Inject 90 Units subcutaneouslydaily at bedtime. aspirin 81 mg chewable tablet Take 81 mg by mouth once daily. insulin needles, DISPOSABLE, (1ST TIER UNIFINE PENTIPS) 31 gauge x 5/16" ndle 1 Each once daily. DX: E11.9 Insulin: Yes Insulin Syringe-Needle U-100 1/2 mL 29 x 1/2" syrg 1 Each once daily. USE ONE SYRINGE FOR EACH DOSE/1PER DAY, (E11.9, Z79.4) Diabetes mellitus type 2, insulin dependent. Lancets (ACCU-CHEK SOFTCLIX LANCETS) lancets Test blood sugar(s) 1 times daily. Dx: 250.00. Insulin: Yes COMPOUNDED PRESCRIPTION 1 Each twice daily. Accucheck compact test strips, dx-NIDDM flecainide (TAMBOCOR) 150 mg tablet Take 1 tablet by mouth every 12 hours. 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 [...] 92/54 Pulse 78 Ht 185.4 cm (6' 1") Wt 123.8 kg (273 lb) SpO2 95% [...] or prn Mathieu Virgen [place] encounterBryan [place] [id number] Telephone encounter Note * Telephone Encounter - Mathieu Virgen MD - 11/29/2024 9:18 AM EDT Reviewed. Coming on . Await appt [facility]03-15-2025 Miscellaneous Notes* Telephone Encounter - Mathieu Virgen MD - 11/29/2024 9:18 AM EDT Reviewed. Coming on . Await appt * Telephone Encounter - Miley Pemberton MA - 11/28/2024 4:55 PM EDT Pt had blood work done. View External Labs - Chemistry [ID [id number]] View External Labs - Miscellaneous Lab [ID [id number]] View External Labs - Chemistry [ID [id number]] Miley Pemberton MA documented in this encounterSumma Health03-14-2025 Telephone encounter Note * Telephone Encounter - Miley Pemberton MA - 11/28/2024 4:55 PM EDT Pt had blood work done. View External Labs - Chemistry [ID [id number]] View External Labs - Miscellaneous Lab [ID [id number]] View External Labs - Chemistry [ID [id number]] Miley Pemberton MA [facility]03-13-2025 Telephone encounter Note* Telephone Encounter - Jaylene Henley LPN - 11/27/2024 11:40 AM EDT Left message for Farida that lab orders have been placed. [place] [id number] Miscellaneous Notes* Telephone Encounter - Jaylene Henley LPN - 11/27/2024 11:40 AM EDT Left message for Farida that lab orders have been placed. * [...] Please assist. Reanna Cloud documented in this encounterSumma Health03-13-2025 Telephone encounter Note * Telephone Encounter - Mathieu Virgen MD - 11/27/2024 11:37 AM EDT ordered [facility]03-13-2025 Telephone encounter Note* Telephone Encounter - Jaylene Henley LPN - 11/27/2024 11:30 AM EDT Labs pending to review and file. [facility]03-13-2025 Telephone encounter Note* Telephone Encounter - Reanna Cloud - 11/27/2024 9:52 AM EDT Patient and daughter are here for labs and MyChart is stating that the patinet is due for an Urine Albumin:Creatinine Ration, A1C and LDL Cholesterol but those orders are not in the patient's chart. Patient/daughter want them done today while they are here. Please assist. Reanna Cloud [facility]03-12-2025 Telephone encounter Note* Telephone Encounter - Jaylene Henley LPN - 11/26/2024 5:17 PM EDT Left detailed message on personalized voicemail. [facility]03-12-2025 Miscellaneous Notes* Telephone Encounter - Jaylene Henley [...] ok rx needs to sent to [facility] daughter needs called with information documented in this encounterSumma Health03-12-2025 Telephone encounter Note * Telephone Encounter - Mathieu Virgen MD - 11/26/2024 5:07 PM EDT I am assuming he is taking it once a day. Rx sent [facility]03-12-2025 Telephone encounter Note* Telephone Encounter - Tierra Crawford RN - 11/26/2024 3:58 PM EDT patient daughter is calling in stating that Dr Daley left the office today without filling patients finasteride. daughter is requesting that pcp fill the medication for patient. please review and advise. if ok rx needs [facility] daughter needs called with information [facility]03-10-2025 Telephone encounter Note* Telephone Encounter - Janet King MA - 11/24/2024 10:44 AM EDT Scheduled 12/02/24 [facility]03-10-2025 Miscellaneous Notes* Telephone Encounter - Janet King [...] - 11/12/2024 2:31 PM EST Rem from Lisa Esparza pharmacist calling patient daughter told her that [...] of this. Please advise documented in this encounterSumma Health03-10-2025 Telephone encounter Note * Telephone Encounter - Janet King MA - 11/24/2024 10:16 AM EDT Next visit 12/02/24 [facility]03-10-2025 Miscellaneous Notes* Telephone Encounter - Janet King MA - 11/24/2024 10:16 AM EDT Next visit 12/02/24 * Telephone Encounter - Nisha Wilson - 11/24/2024 9:33 AM EDT Patient's daughter calling asking for an medication: dilTIAZem CD (CARDIZEM CD, CARTIA XT) 120 mg 24 hr capsule () Patient last seen 10/31/23 Future visit scheduled: yes PHARMACY: Yanira Fernandez. documented in this encounterSumma Health03-10-2025 Telephone encounter Note * Telephone Encounter - Nisha Wilson - 11/24/2024 9:33 AM EDT Patient's daughter calling asking for an medication: dilTIAZem CD (CARDIZEM CD, CARTIA XT) 120 mg 24 hr capsule () Patient last seen 10/31/23 Future visit scheduled: yes PHARMACY: Yanira Esparza/Lisa. [facility]02-27-2025 Telephone encounter Note* Telephone Encounter - Lulu Walls MA - 11/13/2024 2:46 PM EST Message left for daughter Farida to call back to schedule sooner appointment. Lulu Walls MA [address]27-2025 Telephone encounter Note* Telephone Encounter - Marilin Stein MA - 11/13/2024 12:27 PM EST Please see message from pt's Daughter and advise if willing to order labs. Marilin Stein MA [facility]02-27-2025 Miscellaneous Notes* Telephone Encounter - Marilin Stein MA - 11/13/2024 12:27 PM EST Please see message from pt's Daughter and advise if willing to order labs. Marilin Stein MA documented in this encounterSumma Health02-26-2025 Telephone encounter Note * Telephone Encounter - Mathieu Virgen MD - 11/12/2024 4:52 PM EST See if we can get him in sooner. [address]26-2025 Telephone encounter Note* Telephone Encounter - Lulu Walls MA - 11/12/2024 4:50 PM EST Has an appointment 12/19/24. Is that out too far? [facility]02-26-2025 Telephone encounter Note* Telephone Encounter - Mathieu [...] into see me in a few weeks [facility]02-26-2025 Telephone encounter Note* Telephone Encounter - Tammy Davies LPN - 11/12/2024 2:31 PM EST Rem from Lisa Esparza pharmacist calling patient daughter told her that [...] says with all of this. Please advise [facility]02-14-2025 NoteHNO ID: [id number] Author: SUKH HALL APRN.PCU RN Service: ? Author Type: Nurse Practitioner Type: [...] day. Blood-Glucose Meter,Continuous (FREESTYLE MARIELLE 3 READER) [facility] Use to check blood sugar at least [...] (1ST TIER UNIFINE PENTIPS) 31 gauge x 5/16" ndle 1 Each once daily. DX: E11.9 Insulin: Yes Insulin Syringe-Needle U-100 1/2 mL 29 x 1/2" syrg 1 Each once daily. USE ONE SYRINGE FOR EACH DOSE/1PER DAY, (E11.9, Z79.4) Diabetes mellitus type 2, insulin dependent. Lancets (ACCU-CHEK SOFTCLIX LANCETS) lancets Test blood sugar(s) 1 times daily. Dx: 250.00. Insulin: Yes COMPOUNDED PRESCRIPTION 1 Each twice daily. Accucheck compact test strips, dx-NIDDM flecainide (TAMBOCOR) 150 mg tablet Take 1 tablet by mouth every 12 hours. Prescribed by outside petroleum refinery operator No current facility-admin (more content not included)...[facility]02-14-2025 History of Present illness Narrative* Sukh Hall, PAIGE.PCU RN - 10/31/2024 2:44 PM EST Chief Complaint [...] day. Blood-Glucose Meter,Continuous (FREESTYLE MARIELLE 3 READER) [facility] Use to check blood sugar at least [...] (1ST TIER UNIFINE PENTIPS) 31 gauge x 5/16" ndle 1 Each once daily. DX: E11.9 Insulin: Yes Insulin Syringe-Needle U-100 1/2 mL 29 x 1/2" syrg 1 Each once daily. USE ONE SYRINGE FOR EACH DOSE/1PER DAY, (E11.9, Z79.4) Diabetes mellitus type 2, insulin dependent. Lancets (ACCU-CHEK SOFTCLIX LANCETS) lancets Test blood sugar(s) 1 times daily. Dx: 250.00. Insulin: Yes COMPOUNDED PRESCRIPTION 1 Each twice daily. Accucheck compact test strips, dx-NIDDM flecainide (TAMBOCOR) 150 mg tablet Take 1 tablet by mouth every 12 hours. Prescribed by outside petroleum refinery operator No current facility-administered medications on file prior [...] per day, discussed with Sergey Carreon at [facility]. Has follow up with Dr. Bailey aguilar. 4. Systolic congestive heart failure, unspecified HF chronicity (HCC) - ICD9: 428.20, 428.0, ICD10:I50.20 - Continue current medications - Encouraged sodium restriction - Encouraged daily weights Patient instructed if he develops swelling, weight gain or SOB to follow up with [facility] for guidance. Sukh Hall APRN.CAESAR documented in this encounterSumma Health02-14-2025 Telephone encounter Note * Telephone Encounter - [...] waiting for a new C-pap machine from [facility]. (Nisha is calling them to ask about the machine as she is aware that we are not able to do anything about that). Patient wants to discuss the fluid restriction. Nisha aware that if he is dehydrated and needs fluids he should go to the ER but she said he is not to that point. Appointment remains. Jackelin Tinajero RN [facility]02-14-2025 Miscellaneous Notes* Telephone Encounter - Jackelin Tinajero [...] waiting for a new C-pap machine from [facility]. (Nisha is calling them to ask [...] remains. Jackelin Tinajero RN documented in this encounterSumma Health01-30-2025 Telephone encounter Note * Telephone Encounter - Lulu Walls MA - 10/16/2024 11:52 AM EST We do not have samples. Spoke with daughter Farida and informed her of this. She is requesting a Rx for the Dexcom sensors (G7) to the [facility] in [place] while waiting for the company to ship more. Patient has finger stick meter at home but daughter states this is not super convenient for them to check this way. Lulu Walls MA [facility]01-30-2025 Miscellaneous Notes* Telephone Encounter - Lulu Walls MA - 10/16/2024 11:52 AM EST We do not have samples. Spoke with daughter Farida and informed her of this. She is requesting a Rx for the Dexcom sensors (G7) to the [facility] in [place] while waiting for the company to ship more. Patient has finger stick meter at home but daughter states this is not super convenient for them to check this way. Lulu Walls MA * Telephone Encounter - Mathieu Virgen MD - 10/16/2024 10:34 AM EST Do we have anything like that available? Might need to buy one if not * Telephone Encounter - Vikas Regalado RN - 10/16/2024 10:31 AM EST Daughter Farida reports patient had 3 Dexcom G 7 sensors that malfunctioned. They notified the company, but it takes 5-7 days to receive new one. Asking if pcp has samples of these sensors or knows how they can get one. Please phone Farida with reply: [phone] documented in this encounterSumma Health01-30-2025 Telephone encounter Note * Telephone Encounter - Mathieu Virgen MD - 10/16/2024 10:34 AM EST Do we have anything like that available? Might need to buy one if not [facility]01-30-2025 Telephone encounter Note* Telephone Encounter - Vikas Regalado RN - 10/16/2024 10:31 AM EST Daughter Farida reports patient had 3 Dexcom G 7 sensors that malfunctioned. They notified the company, but it takes 5-7 days to receive new one. Asking if pcp has samples of these sensors or knows how they can get one. Please phone Farida with reply: [phone] [facility]01-23-2025 Telephone encounter Note* Telephone Encounter - Julianna Hood APRN.CNP - 10/09/2024 8:43 AM EST The following approved medication requests have been transmitted electronically. Requested Prescriptions Pending Prescriptions Disp Refills metFORMIN ER (GLUCOPHAGE XR) 500 mg 24 hr tablet 360 tablet 3 Sig: Take 2 tablets by mouth two times a day before meals. Julianna Hood APRN.CNP [facility]01-23-2025 Miscellaneous Notes* Telephone Encounter - Julianna Hood [...] 09, 2024 7:52 AM documented in this encounterSumma Health01-23-2025 Telephone encounter Note * Telephone Encounter - [...] Frey LPN October 09, 2024 7:52 AM [facility]01-07-2025 NoteHNO ID: [id number] Author: DENISHA SHEPARD APRN.PCU RN Service: ? Author Type: Nurse Practitioner Type: Progress Notes Filed: 09/23/2024 18:18 Note Text: This is a 79 year old male who presents today with: Patient presents with: ER F/U: [facility] ER 09/20/24 dx:CP HISTORY OF PRESENT ILLNESS: Faisal Alarcon is a 79 year old male. Patient presents with: ER F/U: [facility] ER 09/20/24 dx:CP Patient presents today for emergency room follow-up. He went to the emergency room on 09/20/2024 with complaints of chest discomfort. He had been given nitroglycerin by EMS that did improve his pain. He had negative cardiac enzymes and stable lab work. There was no STEMI. The emergency room did consult patient's petroleum refinery operator, and it was recommended to start patient [...] day. Blood-Glucose Meter,Continuous (FREESTYLE MARIELLE 3 READER) [facility] Use to check blood sugar at least [...] mouth every 12 hours. Prescribed by outside petroleum refinery operator insulin glargine (BASAGLAR KWIKPEN U-100 INSULIN) 100 unit/mL (3 mL) Inject 90 Units subcutaneously daily at bedtime. (Patient taking differently: Inject 60 Units subcutaneously daily at bedtime.) finasteride (PROSCAR) 5 mg tablet aspirin 81 mg chewable tablet Take 81 mg by mouth once daily. insulin needles, DISPOSABLE, (1ST TIER UNIFINE PENTIPS) 31 gauge x 5/16" ndle 1 Each once daily. DX: E11.9 Insulin: Yes Insulin Syringe-Needle U-100 1/2 mL 29 x 1/2" syrg 1 Each once daily. USE ONE SYRINGE FOR EACH DOSE/1PER DAY, (E11.9, Z79.4) Diabetes mellitus type 2, insulin dependent. Lancets (ACCU-CHEK SOFTCLIX LANCETS) lancets Test blood sugar(s) 1 times daily. Dx: 250.00. Insul (more content not included)...[facility] 09-23-2024 History of Present illness Narrative* Denisha Shepard APRN.PCU RN - 09/23/2024 6:10 PM EST This is a 79 year old male who presents today with: Patient presents with: ER F/U: [facility] ER 09/20/24 dx:CP HISTORY OF PRESENT ILLNESS: Faisal Alarcon is a 79 year old male. Patient presents with: ER F/U: [facility] ER 09/20/24 dx:CP Patient presents today for emergency room follow-up. He went to the emergency room on 09/20/2024 with complaints of chest discomfort. He had been given nitroglycerin by EMS that did improve his pain. He had negative cardiac enzymes and stable lab work. There was no STEMI. The emergency room did consult patient's petroleum refinery operator, and it was recommended to start patient [...] day. Blood-Glucose Meter,Continuous (FREESTYLE MARIELLE 3 READER) [facility] Use to check blood sugar at least [...] mouth every 12 hours. Prescribed by outside petroleum refinery operator insulin glargine (BASAGLAR KWIKPEN U-100 INSULIN) 100 unit/mL (3 mL) Inject 90 Units subcutaneouslydaily at bedtime. (Patient taking differently: Inject 60 Units subcutaneously daily at bedtime.) finasteride (PROSCAR) 5 mg tablet aspirin 81 mg chewable tablet Take 81 mg by mouth once daily. insulin needles, DISPOSABLE, (1ST TIER UNIFINE PENTIPS) 31 gauge x 5/16" ndle 1 Each once daily. DX: E11.9 Insulin: Yes Insulin Syringe-Needle U-100 1/2 mL 29 x 1/2" syrg 1 Each once daily. USE ONE [...] as needed for worsening/no improvement. Denisha Shepard APRN.CNP documented in this encounterSumma Health01-07-2025 Telephone encounter Note * Telephone Encounter - Denisha Shepard APRN.CNP - 09/23/2024 5:14 PM EST See office notes. Has appt w/ cardiology today. Denisha Shepard APRN.CNP [facility]01-07-2025 Miscellaneous Notes* Telephone Encounter - Denisha Shepard APRN.CNP - 09/23/2024 5:14 PM EST See office notes. Has appt w/ cardiology today. Denisha Shepard APRN.CNP * Telephone Encounter - Liyah Monroy RN - 09/22/2024 12:49 PM EST Pts daughter called in and reports her father was in [facility] ER 09/20/24. She reports Pt was having chestpain and that is why he went to the ER. Pts daughter states they didn't find anything wrong with him, everything was the same as before. Pt scheduled with Denisha Shepard SENIOR PROCESS ANALYST 09/23/24 at 240 pm. She reports he father has been feeling lightheaded and dizzy, and she thinks it's because on 09/13/24 his Lead Ruby On Rails Developer Dr Ponce double his dose of Lasix. [...] few weeks from now. documented in this encounterSumma Health01-06-2025 Telephone encounter Note * Telephone Encounter - Liyah Monroy RN - 09/22/2024 12:49 PM EST Pts daughter called in and reports her father was in [facility] ER 09/20/24. She reports Pt was having chestpain and that is why he went to the ER. Pts daughter states they didn't find anything wrong with him, everything was the same as before. Pt scheduled with Denisha Shepard SENIOR PROCESS ANALYST 09/23/24 at 240 pm. She reports he father has been feeling lightheaded and dizzy, and she thinks it's because on 09/13/24 his Lead Ruby On Rails Developer Dr Ponce double his dose of Lasix. [...] is out a few weeks from now. [facility]12-17-2024 Telephone encounter Note* Telephone Encounter - Angelina Bliss RN - 09/02/2024 3:51 PM EST Patient's daughter Farida, returned call and given provider's message below. Angelina Bliss RN [facility]12-17-2024 Miscellaneous Notes* Telephone Encounter - Angelina Bliss [...] symptoms that daughter knows of. Protocols used: [id number] documented in this encounterSumma Health12-17-2024 Telephone encounter Note * Telephone Encounter - Janet King MA - 09/02/2024 3:18 PM EST Left message for patient to return call and speak to triage nurse Janet King Ma [facility]12-17-2024 Telephone encounter Note* Telephone Encounter - Mathieu Virgen MD - 09/02/2024 1:07 PM EST If any pain, nausea or vomiting or distention to er for disimpaction if it is the rectum and can't use a suppository or enema. [facility]12-17-2024 Telephone encounter Note* Telephone Encounter - [...] symptoms that daughter knows of. Protocols used: [id number] [facility]12-09-2024 Telephone encounter Note* Telephone Encounter - Kennedi Frey LPN - 08/25/2024 8:12 AM EST Spoke with Farida, daughter of pt and message below given. Farida verbalizes understanding. Kennedi Frey LPN [facility]12-09-2024 Miscellaneous Notes* Telephone Encounter - Kennedi Frey [...] 22, 2024 11:53 AM documented in this encounterSumma Health12-06-2024 Telephone encounter Note * Telephone Encounter - Janet King MA - 08/22/2024 1:35 PM EST Left message for patient to return call. Janet King Ma [facility]12-06-2024 Telephone encounter Note* Telephone Encounter - Julianna Hood APRN.CNP - 08/22/2024 12:56 PM EST The following approved medication requests have been transmitted electronically. Requested Prescriptions Pending Prescriptions Disp Refills furosemide (LASIX) 40 mg tablet 90 tablet 1 Sig: Take 1 tablet by mouth once daily. Julianna Hood APRN.CNP [facility]12-06-2024 Miscellaneous Notes* Telephone Encounter - Julianna Hood [...] 22, 2024 11:52 AM documented in this encounterSumma Health12-06-2024 Telephone encounter Note * Telephone Encounter - Julianna Hood APRN.CNP - 08/22/2024 12:55 PM EST Since patient has slightly weakened kidneys, I will replace simvastatin with a atorvastatin 20 mg daily. It is a little safer on the kidneys. [facility]12-06-2024 Telephone encounter Note* Telephone Encounter - Christian [...] Bob LPN August 22, 2024 11:53 AM [place] [address]-06-2024 Telephone encounter Note* Telephone Encounter - Christian [...] Bob LPN August 22, 2024 11:52 AM [facility]12-02-2024 Telephone encounter Note* Telephone Encounter - Jaylene Henley LPN - 08/18/2024 1:14 PM EST We did and faxed it back. Will fax again today. [facility]12-02-2024 Miscellaneous Notes* Telephone Encounter - Jaylene Henley LPN - 08/18/2024 1:14 PM EST We did and faxed it back. Will fax again today. * Telephone Encounter - Kristina Higuera LPN - 08/18/2024 12:55 PM EST Kate with [facility] calls to check on status of order form that was faxed last week for Dexcom G7. Kate is asking if office did not receive order form if office would call back and let them know. Kristina Higuera LPN documented in this encounterSumma Health12-02-2024 Telephone encounter Note * Telephone Encounter - Kristina Higuera LPN - 08/18/2024 12:55 PM EST Kate with [employer] calls to check on status of order form that was faxed last week for Dexcom G7. Kate is asking if office did not receive order form if office would call back and let them know. Kristina Higuera LPN [facility]11-29-2024 Telephone encounter Note* Telephone Encounter - Angelina Bliss RN - 08/15/2024 8:59 AM EST Summer calling with [employer], the [facility] [employer] assisting patient with Dexcom G7 CGM. Requesting recent OV note to further proceed with pt's CGM order. Faxed as requested to [phone]. Angelina Bliss RN [facility]11-29-2024 Miscellaneous Notes* Telephone Encounter - Angelina Bliss RN - 08/15/2024 8:59 AM EST Summer calling with [employer], the company assisting patient with Dexcom G7 CGM. Requesting recent OV note to further proceed with pt's CGM order. Faxed as requested to [phone]. Angelina Bliss RN documented in this encounterSumma Health11-27-2024 Evaluation note* Diagnosis Onset Date Resolution Status [...] fibrillation chron ic September 23, 2024 3:25pm [facility] Work Phone: 1(131) 901-381011-25-2024 Telephone encounter Note* Telephone Encounter - Mathieu Virgen MD - 08/11/2024 1:42 PM EST agree [facility]11-25-2024 Miscellaneous Notes* Telephone Encounter - Mathieu Virgen [...] sent to his PCP. documented in this encounterSumma Health11-25-2024 Telephone encounter Note * Telephone Encounter - [...] note is being sent to his PCP. [facility]11-19-2024 Telephone encounter Note* Telephone Encounter - Lulu Walls MA - 08/05/2024 5:00 PM EST Order faxed to Gilberto and caesar Farida informed. Lulu Walls MA [facility]11-19-2024 Miscellaneous Notes* Telephone Encounter - Lulu Walls MA - 08/05/2024 5:00 PM EST Order faxed to Gilberto and Farida maynard informed. Lulu Walls MA * Telephone Encounter - Mathieu Virgen MD - 08/05/2024 3:52 PM EST printed * Telephone Encounter - Angelina Bliss RN - 08/05/2024 3:12 PM EST This triage nurse spoke with patient's daughter [facility] is for 2 liters of O2 PRN exertion. Daughter asking if Dr. Virgen can send new order to [facility] for 2 liters Oxygen continuous? Daughter states pt prefers to continue to use the tanks and does not want an electric concentrator, if possible. Daughter states patient does not have any worsening symptoms since recent OV on 07/29/24 and she will update PCP if pt does. Please call daughter Farida when order has been sent to [facility]. Thank you. documented in this encounterSumma Health11-19-2024 Telephone encounter Note * Telephone Encounter - Mathieu Virgen MD - 08/05/2024 3:52 PM EST printed [facility]11-19-2024 Telephone encounter Note* Telephone Encounter - Angelina Bliss RN - 08/05/2024 3:12 PM EST This triage nurse spoke with patient's daughter [employer] is for 2 liters of O2 PRN exertion. Daughter asking if Dr. Virgen can send new order to [facility] for 2 liters Oxygen continuous? Daughter states pt prefers to continue to use the tanks and does not want an electric concentrator, if possible. Daughter states patient does not have any worsening symptoms since recent OV on 07/29/24 and she will update PCP if pt does. Please call daughter Farida when order has been sent to [facility]. Thank you. [facility]11-19-2024 Telephone encounter Note* Telephone Encounter - Marilin Stein MA - 08/05/2024 2:53 PM EST Watch for Scooter paperwork for pt from [employer]. Marilin Stein MA [facility]11-19-2024 Miscellaneous Notes* Telephone Encounter - Marilin Stein MA - 08/05/2024 2:53 PM EST Watch for Sc[employer] paperwork for pt from [employer]. Marilin Stein MA documented in this encounterSumma Health11-15-2024 Telephone encounter Note * Telephone Encounter - [...] Abdi LPN August 01, 2024 12:54 PM [facility]11-15-2024 Miscellaneous Notes* Telephone Encounter - Cristina Abdi [...] 01, 2024 12:54 PM documented in this encounterSumma Health11-15-2024 Telephone encounter Note * Telephone Encounter - Janet King MA - 08/01/2024 11:19 AM EST Daughter, Farida, notified of results. Advised her of provider message to keep eye out for tarry, black stools or bright, red blood. She is agreeable with plan. Patient has follow up scheduled in October. Janet King MA August 01, 2024 11:26 AM [facility]11-15-2024 Miscellaneous Notes* Telephone Encounter - Janet King MA - 08/01/2024 11:19 AM EST Daughter, [...] Stop any magnesium supplements. documented in this encounterSumma Health11-14-2024 Telephone encounter Note * Telephone Encounter - [...] magnesium is high. Stop any magnesium supplements. [facility]11-12-2024 Instructions* Patient Instructions* Julianna Hood APRN.CNP - 07/29/2024 12:10 PM EST 1) Check labs 2) Start OTC B12 1,000 mcg daily 3) Follow up in 3 months documented in this encounterSumma Health11-12-2024 NoteHNO ID: [id number] Author: JULIANNA HOOD APRN.CNP Service: ? Author [...] pressure. No nausea. No constipation. Admitted to [facility] w/ pulmonary edeam, hypoxia Echo showed EF [...] mouth two times a day. Blood-Glucose Meter,Continuous (SummuS RenderSTYLE MARIELLE 3 READER) [facility] Use to check blood sugar at least [...] daily at bedtime. flecaini (more content not included)...[facility]11-12-2024 History of Present illness Narrative* Julianna Hood APRN.PCU RN - 07/29/2024 11:36 AM EST This is [...] pressure. No nausea. No constipation. Admitted to [facility] w/ pulmonary edeam, hypoxia Echo showed EF [...] day. Blood-Glucose Meter,Continuous (FREESTYLE MARIELLE 3 READER) [facility] Use to check blood sugar at least [...] mouth every 12 hours. Prescribed by outside petroleum refinery operator insulin glargine (BASAGLAR KWIKPEN U-100 INSULIN) 100 unit/mL (3 mL) Inject 90 Units subcutaneouslydaily at bedtime. (Patient taking differently: Inject 60 Units subcutaneously daily at bedtime.) finasteride (PROSCAR) 5 mg tablet aspirin 81 mg chewable tablet Take 81 mg by mouth once daily. insulin needles, DISPOSABLE, (1ST TIER UNIFINE PENTIPS) 31 gauge x 5/16" ndle 1 Each once daily. DX: E11.9 Insulin: Yes Insulin Syringe-Needle U-100 1/2 mL 29 x 1/2" syrg 1 Each once daily. USE ONE [...] as needed for worsening/no improvement. Julianna Hood APRN.PCU RN documented in this encounterSumma Health11-08-2024 [facility]11-08-2024 [facility]10-25-2024 [facility]10-23-2024 Telephone encounter Note* Telephone Encounter - Jaylene [...] Henley LPN July 09, 2024 10:38 AM [facility]10-23-2024 Miscellaneous Notes* Telephone Encounter - Jaylene Henley [...] 09, 2024 10:38 AM documented in this encounterSumma Health10-08-2024 Telephone encounter Note * Telephone Encounter - Vikas Regalado RN - 06/24/2024 4:23 PM EDT Daughter returned call and given provider's message below with verbalized understanding. Daughter agreeable. Scheduled lab appt in 1 mth. [facility]10-08-2024 Miscellaneous Notes* Telephone Encounter - Vikas Regalado RN - 06/24/2024 4:23 PM EDT Daughter returned call and given provider's message below with verbalized understanding. Daughter agreeable. Scheduled lab appt in 1 mth. * Telephone Encounter - Miley Pemberton MA - 06/24/2024 9:50 AM EDT Tried to reach pt, VM full, unable to leave message or call back number. Badoo message sent to pt, asking them to [...] D level is very low. Please consider xhny-bwo-ncmgs vitamin D3-2000 units daily. Your white blood count is improving but now developing some mild anemia. Please recheck CBC in a month again. documented in this encounterSumma Health10-08-2024 Telephone encounter Note * Telephone Encounter - Miley Pemberton MA - 06/24/2024 9:50 AM EDT Tried to reach pt, VM full, unable to leave message or call back number. Badoo message sent to pt, asking them to call back for results. Miley Pemberton MA [facility]10-07-2024 Instructions* Patient Instructions* Abril Duval APRN.CAESAR - 06/23/2024 3:20 PM EDT Let me know if you would like to schedule a sleep study. We can have it done at [facility] or [place]. documented in this encounterSumma Health10-07-2024 History of Present illness Narrative* Abril Duval APRN.CAESAR - 06/23/2024 2:30 PM EDT Images from the original note were not included. [facility] New Patient Evaluation PATIENT NAME: Faisal Alarcon DATE OF SERVICE: June 22, 2024 CONSULTING PROVIDER: Vikas Travis [address] [facility] [id number] REASON FOR CONSULT: Vikas Travis sends the patient for an opinion [...] day. Blood-Glucose Meter,Continuous (FREESTYLE MARIELLE 3 READER) [facility] Use to check blood sugar at least [...] (1ST TIER UNIFINE PENTIPS) 31 gauge x 5/16" ndle 1 Each once daily. DX: E11.9 Insulin: Yes Insulin Syringe-Needle U-100 1/2 mL 29 x 1/2" syrg 1 Each once daily. USE ONE SYRINGE FOR EACH DOSE/1PER DAY, (E11.9, Z79.4) Diabetes mellitus type 2, insulin dependent. Lancets (ACCU-CHEK SOFTCLIX LANCETS) lancets Test blood sugar(s) 1 times daily. Dx: 250.00. Insulin: Yes COMPOUNDED PRESCRIPTION 1 Each twice daily. Accucheck compact test strips, dx-NIDDM flecainide (TAMBOCOR) 150 mg tablet Take 1 tablet by mouth every 12 hours. Prescribed by outside petroleum refinery operator Review of Systems Cardiovascular: Negative for palpitations. [...] will consider a PSG, could schedule at [facility] or [place], daughter Farida uses [employer] for him, she will let me know. Abril Duval APRN.PCU RN documented in this encounterSumma Health10-07-2024 NoteHNO ID: [id number] Author: ABRIL DUVAL APRN.PCU RN Service: ? Author Type: Nurse Practitioner Type: Progress Notes Filed: 06/23/2024 16:46 Note Text: [facility] New Patient Evaluation PATIENT NAME: Faisal Alarcon DATE OF SERVICE: June 22, 2024 CONSULTING PROVIDER: Vikas Travis [address] [facility] [address] REASON FOR CONSULT: Vikas Travis sends the patient for an opinion [...] day. Blood-Glucose Meter,Continuous (FREESTYLE MARIELLE 3 READER) [facility] [place] Use to check blood sugar at least [...] inhaler Inhale 2 Puf (more content not included)...[facility] [place]10-07-2024 Telephone encounter Note* Telephone Encounter - Kennedi Frey LPN - 06/23/2024 2:07 PM EDT Attempted to reach pt by phone without success. Mailbox is full. Try later. Kennedi Frey LPN [facility]10-07-2024 Telephone encounter Note* Telephone Encounter - Kennedi Frey LPN - 06/23/2024 2:07 PM EDT ----- Message from Julianna Hood sent at 06/23/2024 1:51 PM EDT ----- Your vitamin D level is very low. Please consider fqth-ekp-qdrwa vitamin D3-2000 units daily. Your white blood count is improving but now developing some mild anemia. Please recheck CBC in a month again. [facility]10-04-2024 NoteHNO ID: [id number] Author: MATHIEU VIRGEN MD Service: ? Author [...] Free style marielle script needs sent through [employer] He is wanting us to send his [...] (1ST TIER UNIFINE PENTIPS) 31 gauge x 5/16" ndle 1 Each once daily. DX: E11.9 Insulin: Yes Insulin Syringe-Needle U-100 1/2 mL 29 x 1/2" syrg 1 Each once daily. USE ONE SYRINGE FOR EACH DOSE/1PER DAY, (E11.9, Z79.4) Diabetes mellitus type 2, insulin dependent. Lancets (ACCU-CHEK SOFTCLIX LANCETS) lancets Test blood sugar(s) 1 times daily. Dx: 250.00. Insulin: Yes COMPOUNDED PRESCRIPTION 1 Each twice daily. Accucheck compact test strips, dx-NIDDM flecainide (TAMBOCOR) 150 mg tablet Take 1 tablet by mouth every 12 hours. 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 [...] YRS REDUCIBLE Hernia r (more content not included)...[facility] [place]10-04-2024 History of Present illness Narrative* Mathieu Virgen [...] Free style marielle script needs sent through [employer] He is wanting us to send his scooter request to [employer]. They had requested a letter in thepast [...] (1ST TIER UNIFINE PENTIPS) 31 gauge x 5/16" ndle 1 Each once daily. DX: E11.9 Insulin: Yes Insulin Syringe-Needle U-100 1/2 mL 29 x 1/2" syrg 1 Each once daily. USE ONE SYRINGE FOR EACH DOSE/1PER DAY, (E11.9, Z79.4) Diabetes mellitus type 2, insulin dependent. Lancets (ACCU-CHEK SOFTCLIX LANCETS) lancets Test blood sugar(s) 1 times daily. Dx: 250.00. Insulin: Yes COMPOUNDED PRESCRIPTION 1 Each twice daily. Accucheck compact test strips, dx-NIDDM flecainide (TAMBOCOR) 150 mg tablet Take 1 tablet by mouth every 12 hours. 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 [...] Vaccine(1) due on 05/18/2024 Covid-19 Vaccine( - 2023- season) Never done Diabetic Foot Exam due on 06/06/2024 VITALS: BP 132/56 Pulse 80 Ht 185.4 cm (6' 1") Wt (!) 136.7 kg (301 lb 6.4 [...] NOS Mathieu Virgen MD documented in this encounterSumma Health10-04-2024 Telephone encounter Note * Telephone Encounter - Renetta Gant MA - 06/20/2024 1:34 PM EDT Patient phones requesting refills as follows: Requested Prescriptions Pending Prescriptions Disp Refills ELIQUIS 5 mg tab(s) 60 tablet 1 Sig: Take 1 tablet by mouth two times a day. Please review and advise. Renetta Gant MA [facility]10-04-2024 Miscellaneous Notes* Telephone Encounter - Renetta aGnt MA - 06/20/2024 1:34 PM EDT Patient phones requesting refills as follows: Requested Prescriptions Pending Prescriptions Disp Refills ELIQUIS 5 mg tab(s) 60 tablet 1 Sig: Take 1 tablet by mouth two times a day. Please review and advise. Renetta Gant MA documented in this encounterSumma Health10-04-2024 Telephone encounter Note * Telephone Encounter - Jaylene Henley LPN - 06/20/2024 11:23 AM EDT Patient has visit today. Clinical staff can follow up with daughter at visit. [facility]10-04-2024 Miscellaneous Notes* Telephone Encounter - Jaylene Henley LPN - 06/20/2024 11:23 AM EDT Patient has visit today. Clinical staff can follow up with daughter at visit. * Telephone Encounter - Angelina Bliss RN - 06/18/2024 4:28 PM EDT Patient's daughter Farida Beck calling and requesting to speak specifically with PCP Jaylene blackwell. This is in regard to patient's scooter and pt's insurance. Farida [phone]. Thank you. documented in this encounterSumma Health10-02-2024 Telephone encounter Note * Telephone Encounter - Angelina Bliss RN - 06/18/2024 4:28 PM EDT Patient's daughter Farida Beck calling and requesting to speak specifically with PCP Jaylene blackwell. This is in regard to patient's scooter and pt's insurance. Farida [phone]. Thank you. [facility]10-01-2024 Telephone encounter Note* Telephone Encounter - Kennedi Frey LPN - 06/17/2024 9:36 AM EDT Received a call from Alison with [employer]. PH: [phone]. She reports receiving information on a scooter. Alison reports this has to go thru pt's [employer] and they will fax all information with details to [employer] for PA to be done. I called daughter Farida and she reports they are using [employer] fax:[phone] PH: [phone] Spoke with [employer] and after they received the fax they will go thru it and send forms to be filled out and once those have been returned they will send to [employer] for PA . Information fas been faxed. Kennedi Frey LPN [facility]10-01-2024 Miscellaneous Notes* Telephone Encounter - Kennedi Frey LPN - 06/17/2024 9:36 AM EDT Received a call from Alison with [employer]. PH: [phone]. She reports receiving information on a scooter. Alison reports this has to go thru pt's [employer] and they will fax all information with details to [employer] for PA to be done. I called daughter Farida and she reports they are using [employer] fax:[phone] PH: [phone] Spoke with [employer] and after they received the fax they will go thru it and send forms to be filled out and once those have been returned they will send to [employer] for PA . Information fas been faxed. Kennedi Frey LPN documented in this encounterSumma Health09-30-2024 Telephone encounter Note * Telephone Encounter - Jaylene Henley LPN - 06/16/2024 4:24 PM EDT Will fax letter again as requested. [facility]09-30-2024 Miscellaneous Notes* Telephone Encounter - Jaylene Henley LPN - 06/16/2024 4:24 PM EDT Will fax letter again as requested. documented in this encounterSumma Health09-23-2024 Telephone encounter Note * Telephone Encounter - [...] Lynn LPN June 09, 2024 8:49 AM [facility]09-23-2024 Miscellaneous Notes* Telephone Encounter - Julianna Lynn [...] 09, 2024 8:49 AM documented in this encounterSumma Health09-14-2024 NoteHNO ID: [id number] Author: AMAIRANI MCCLENDON APRN.CAESAR Service: ? Author Type: Nurse Practitioner [...] care plan. Patient's caregiver will take him now.[facility] [place]09-14-2024 History of Present illness Narrative* Amairani Mcclendon APRN.CAESAR - 05/31/2024 8:57 AM EDT Patient came in with complaints of lightheadedness dizziness and weakness. Patient says he feels like he collapsed. Patient does have significant cardiac history including A-fib. At this time patientis being referred to the ER for full evaluation. Patient was okay with this care plan. Patient's caregiver will take him now. documented in this encounterSumma Health09-14-2024 Telephone encounter Note * Telephone Encounter - [...] BP, rapid pulse) Protocols used: Dizziness - Gigfhhvvredonwb-AWSIX-WV [facility]09-14-2024 Miscellaneous Notes* Telephone Encounter - Narda Theodore [...] BP, rapid pulse) Protocols used: Dizziness - Caxsbioxconhvfm-ROBAB-QV documented in this encounterSumma Health08-19-2024 Telephone encounter Note * Telephone Encounter - [...] Bob LPN May 05, 2024 5:34 PM [facility]08-19-2024 Miscellaneous Notes* Telephone Encounter - Christian Bob [...] 05, 2024 5:34 PM documented in this encounterSumma Health07-29-2024 Telephone encounter Note * Telephone Encounter - [...] Bob LPN April 14, 2024 11:53 AM [facility]07-29-2024 Miscellaneous Notes* Telephone Encounter - Christian Bob [...] 14, 2024 11:53 AM documented in this encounterSumma Health07-26-2024 History of Present illness Narrative* Mariaelena Curry, DO - 04/11/2024 5:27 PM EDT Virtualist Progress Note Triage Call I have communicated my name and active licensure. The patient's identity and physical location wereverified at the time of this visit. Either the patient or their legal billing customer service representative has been informed of the risks and benefits of -- and alternatives to -- treatment through a remote evaluation andconsents to proceed with the evaluation remotely. Triage source: Triage Call (Nurse Master Data Analyst, [facility] - [facility] Triage, [facility] Triage, [facility] Phone Triage) Was patient downgraded (i.e. disposition other than go to the ED was advised)? Yes Mode of contact: Audio Only Visit History/Physical Exam: 79 y/o male presents with hematuria. Went to ER in [place] yesterday. No records on care everywhere. Daughter [...] daughter is considering taking him to [place] ER to see if he can have cystoscopy. I stated that if he does not feel well that is a good option. [facility] scheduling an appt for next week and she can always cancel if not needed Nurse Triage Disposition (If call is from [facility], Home Care nurse triage, or an Express Care, the disposition is "Go to ED Now"): Go to ED Now (or PCP Triage) Virtualist Recommended Disposition: See Provider > 2 days Signed in as Primary Virtualist, Secondary Virtualist, or [facility] Telehealth provider: Secondary documented in this encounterSumma Health07-26-2024 Telephone encounter Note * Telephone Encounter - Randi Turner RN - 04/11/2024 4:49 PM EDT Reason for Call: Patient and daughter calling with concerns of blood in urine Outcome: Recommendation to see HCP or PCP Triage within 4 hours Daughter refused ED. Stated they went to [place] ED yesterday and they could not do a Cystoscopy. Has appointment with Urology 04/29. Recommended [facility] ED, daughter wanted to speak to provider Name of Provider contacted for further advice: Dr. Mariaelena Curry Provider's recommendation: PCP office visit Sunday or Sunday, go to ED if worsening symptoms Patient was conferenced to [place] in [facility]ointment Center for Sunday appointment scheduling. [...] today Protocols used: Urine - Blood In-ADULT- [facility]07-26-2024 Miscellaneous Notes* Telephone Encounter - Randi Turner RN - 04/11/2024 4:49 PM EDT Reason for Call: Patient and daughter calling with concerns of blood in urine Outcome: Recommendation to see HCP or PCP Triage within 4 hours Daughter refused ED. Stated they went to [place] ED yesterday and they could not do a Cystoscopy. Has appointment with Urology 04/29. Recommended [facility] ED, daughter wanted to speak to provider Name of Provider contacted for further advice: Dr. Mariaelena Curry Provider's recommendation: PCP office visit Sunday or Sunday, go to ED if worsening symptoms Patient was conferenced to [place] in [facility]ointment Center for Sunday appointment scheduling. [...] Urine - Blood In-ADULT- documented in this encounterSumma Health07-26-2024 Telephone encounter Note * Telephone Encounter - [...] Mcclendon MA April 11, 2024 8:02 AM [facility]07-26-2024 Miscellaneous Notes* Telephone Encounter - Najma Mcclendon [...] 11, 2024 8:02 AM documented in this encounterSumma Health07-24-2024 History of Present illness Narrative* Andrew Guallpa APRN.PCU RN - 04/09/2024 2:29 PM EDT Images from [...] times a day before meals. Getting through [employer] dilTIAZem CD (CARDIZEM CD, CARTIA XT) 120 [...] mouth every 12 hours. Prescribed by outside petroleum refinery operator colestipol (COLESTID) 1 gram tablet Take 1 tablet by mouth once daily. insulin glargine (BASAGLAR KWIKPEN U-100 INSULIN) 100 unit/mL (3 mL) Inject 90 Units subcutaneouslydaily at bedtime. finasteride (PROSCAR) 5 mg tablet aspirin 81 mg chewable tablet Take 81 mg by mouth once daily. insulin needles, DISPOSABLE, (1ST TIER UNIFINE PENTIPS) 31 gauge x 5/16" ndle 1 Each once daily. DX: E11.9 Insulin: Yes Insulin Syringe-Needle U-100 1/2 mL 29 x 1/2" syrg 1 Each once daily. USE ONE [...] of care. This note was generated using Sent[employer] software. It may contain errors in wording, punctuation, or spelling. Andrew Guallpa APRN.PCU RN documented in this encounterSumma Health07-08-2024 Telephone encounter Note * Telephone Encounter - Mathieu Virgen MD - 03/24/2024 4:59 PM EDT Reviewed venous insuffiencey and labs. His diltiazem may be contributing. Offered to see him if need be. Discussed compression hose. Keep cool and elevated. Offered vascular eval as well. Daughter's questions answered. [facility]07-08-2024 Miscellaneous Notes* Telephone Encounter - Mathieu Virgen [...] pt. Marilin Stein MA documented in this encounterSumma Health07-08-2024 Telephone encounter Note * Telephone Encounter - Jaylene Henley LPN - 03/24/2024 4:07 PM EDT This is her response to the message that Prosper sent from his lab results on 02/28/24. [facility]07-06-2024 Telephone encounter Note* Telephone Encounter - Marilin Stein MA - 03/22/2024 8:27 AM EDT Please review message regarding pt. Marilin Stein MA [facility]07-05-2024 Telephone encounter Note* Telephone Encounter - Reanna Brannon RN - 03/21/2024 1:17 PM EDT Patient's daughter notified of results and provider's instructions. Patient daughter verbalizes understanding. Reanna Brannon RN [facility]07-05-2024 Miscellaneous Notes* Telephone Encounter - Reanna Brannon RN - 03/21/2024 1:17 PM EDT Patient's daughter notified of results and provider's instructions. Patient daughter verbalizes understanding. Reanna Brannon RN * Telephone Encounter - Vikas Regalado RN - 03/21/2024 1:05 PM EDT Left vm on daughters vm to return call to nurse for provider's message, regarding patient's US results. * Telephone Encounter - Vikas Travis PA-C - 03/21/2024 9:03 AM EDT [...] pumps to reduce swelling. Telephone on 03/21/[email or web address] [facility] KNEE HI 30-40WT CONSULT TO LYMPHEDEMA THERAPY Venous incompetence (primary encounter diagnosis) Lymphedema of left leg Varicose veins of both legs with edema Prosper Patel PA-C documented in this encounterSumma Health07-05-2024 Telephone encounter Note * Telephone Encounter - Vikas Regalado RN - 03/21/2024 1:05 PM EDT Left vm on daughters vm to return call to nurse for provider's message, regarding patient's US results. [facility]07-05-2024 Telephone encounter Note* Telephone Encounter - Vikas Travis PA-C - 03/21/2024 9:03 AM EDT [...] pumps to reduce swelling. Telephone on 03/21/24 [employer] KNEE HI 30-40WT CONSULT TO LYMPHEDEMA THERAPY Venous incompetence (primary encounter diagnosis) Lymphedema of left leg Varicose veins of both legs with edema Prosper Patel PA-C [facility]07-03-2024 Telephone encounter Note* Telephone Encounter - Kennedi Frey LPN - 03/19/2024 9:20 AM EDT Daughter notified with results below and report faxed to [facility]. Kennedi Frey LPN [facility]07-03-2024 Miscellaneous Notes* Telephone Encounter - Kennedi Frey LPN - 03/19/2024 9:20 AM EDT Daughter notified with results below and report faxed to [facility]. Kennedi Frey LPN * Telephone Encounter - Vikas Regalado, RN - 03/19/2024 8:18 AM EDT Phoned patient and given provider's message below. Patient reports he is [place] and asked this nurse to call his daughter, Farida, to give her the message. Left vm on Farida's vm asking her to return call to triage nurse for provider's message. * Telephone Encounter - iVkas Travis PA-C - 03/19/2024 6:00 AM EDT [...] up from 13 mmHg. He follows with [facility]: please have him follow up with them in next few months and please have the echo sent there for them to review. Thanks, Prosper Travis PA-C documented in this encounterSumma Health07-03-2024 Telephone encounter Note * Telephone Encounter - Vikas Regalado RN - 03/19/2024 8:18 AM EDT Phoned patient and given provider's message below. Patient reports he is [place] and asked this nurse to call his daughter, Farida, to give her the message. Left vm on Farida's vm asking her to return call to triage nurse for provider's message. [facility]07-03-2024 Telephone encounter Note* Telephone Encounter - Vikas Travis PA-C - 03/19/2024 6:00 AM EDT [...] up from 13 mmHg. He follows with [facility]: please have him follow up with them in next few months and please have the echo sent there for them to review. Thanks, Prosper Travis PA-C [facility]06-20-2024 Telephone encounter Note* Telephone Encounter - Nasra [...] date of : No Nasra Muñiz LPN [facility]06-20-2024 Miscellaneous Notes* Telephone Encounter - Nasra Muñiz [...] No Nasra Muñiz LPN documented in this encounterSumma Health06-13-2024 History of Present illness Narrative* Vikas Travis PA-C - 02/28/2024 11:00 AM EDT [...] feet walking with dyspnea- not new. Sees [facility], last visit 10/24/2023: Notes identified paroxysmal [...] Lymph 1.00 - 4.00 k/uL 2.31 1.59 Lea% % 11.1 11.1 Abs Lea <0.87 k/uL 1.14 (H) 1.24 (H) Eosin% [...] times a day before meals. Getting through [facility] 5 Each 1 dilTIAZem CD (CARDIZEM CD, [...] mouth every 12 hours. Prescribed by outside petroleum refinery operator 60 tablet 0 colestipol (COLESTID) 1 gram [...] (1ST TIER UNIFINE PENTIPS) 31 gauge x 5/16" ndle 1 Each once daily. DX: E11.9 Insulin: Yes 100 Each 11 Insulin Syringe-Needle U-100 1/2 mL 29 x 1/2" syrg 1 Each once daily. USE ONE [...] SERUM F/u 6 weeks after testing completed. Vikas Travis PA-C documented in this encounterSumma Health05-28-2024 Telephone encounter Note * Telephone Encounter - Janet iKng MA - 02/12/2024 5:11 PM EDT Patient's daughter was made aware of the results and verbalizes understanding. Janet King Ma [facility]05-28-2024 Miscellaneous Notes* Telephone Encounter - Janet King MA - 02/12/2024 5:11 PM EDT Patient's daughter was made aware of the results and verbalizes understanding. Janet King Ma * Telephone [...] 02/03 but legs and ankles remainswollen but " a little bit better". SOB with exertion continues, has not worsened. [...] days as ordered Protocols used: No Guideline Mpaihgklk-PAAQG-IG * Telephone Encounter - Angelina Bliss RN [...] advise! Angelina Bliss RN documented in this encounterSumma Health05-28-2024 Telephone encounter Note * Telephone Encounter - Mathieu Virgen MD - 02/12/2024 4:31 PM EDT Check weight daily and call if weight goes up over three lbs in 24 hours. Call if worsening swelling or shortness of breath. His EKG is unchanged. It was read the day he was here when Prosper saw him. [facility]05-28-2024 Telephone encounter Note* Telephone Encounter - Angelina [...] day Lasix regimen that Prosper ordered for hm last week. Pt is down a total of 5 lbs since OV on 02/03 but legs and ankles remainswollen but " a little bit better". SOB with exertion continues, has not worsened. [...] days as ordered Protocols used: No Guideline Cckjiqftf-WYJMK-CW [facility]05-28-2024 Telephone encounter Note* Telephone Encounter - Angelina [...] to me. Please advise! Angelina Bliss RN [facility]05-20-2024 Instructions* Patient Instructions* Vikas Travis PA-C - 02/04/2024 12:49 PM EDT Trial lasix 40mg daily x 5 days Check weight at home prior to starting Recheck weight in 5 days and report to me documented in this encounterSumma Health05-20-2024 History of Present illness Narrative* Brenda Arrington RT(R) - 02/04/2024 12:20 PM EDT Radiology [...] PATIENT PRESENTS WITH AN IMPLANTABLE OR ATTACHED HOGSHEAD WEIGHER: No RADIOLOGY DEPARTMENT: General X-ray: Exam(s) Completed: Chest X-Ray PERIPHERAL IV DATA: Not applicable SIGNED BY: RT Griselda(R) February 04, 2024 12:16 PM documented in this encounterSumma Health05-20-2024 History of Present illness Narrative* Vikas Travis PA-C - 02/04/2024 11:36 AM EDT [...] feet walking with dyspnea- not new. Sees [facility], last visit 10/24/2023: Notes identified paroxysmal [...] times a day before meals. Getting through [facility] 5 Each 1 dilTIAZem CD (CARDIZEM CD, [...] (1ST TIER UNIFINE PENTIPS) 31 gauge x 5/16" ndle 1 Each once daily. DX: E11.9 Insulin: Yes 100 Each 11 Insulin Syringe-Needle U-100 1/2 mL 29 x 1/2" syrg 1 Each once daily. USE ONE [...] mouth every 12 hours. Prescribed by outside petroleum refinery operator 60 tablet 0 No current facility-administered medications [...] 05/18/2023, NSR 1 degree AVB, LAFB pending petroleum refinery operator review. ASSESSMENT/PLAN: 1. SOB (shortness of breath) - ICD9: 786.05, ICD10: R06.02 (primary diagnosis) Suspect r/t body habitus and deconditioning, chronic lung disease In no acute distress. No chest pain or evidence of DVT. EKG stable Due to sudden weight gain will trial lasix 40mg daily x 5 days with weight onb 5th day to be reported through [employer]- daughter will see this gets completed If chest pain, worsening SOB, feeling worse:go to ER Will send note to [facility] for continuity of care. - COMPLETE [...] and adjusted for changes in prior data. Vikas Travis PA-C documented in this encounterSumma Health05-20-2024 Telephone encounter Note * Telephone Encounter - Vikas Regalado RN - 02/04/2024 10:05 AM EDT [...] disease. 7. : N/A Protocols used: Ankle Ohnwgwav-ELYNH-ZC, Leg Swelling and Aqauh-QMSAZ-FJ [facility]05-20-2024 Miscellaneous Notes* Telephone Encounter - Vikas Regalado RN - 02/04/2024 10:05 AM EDT [...] disease. 7. : N/A Protocols used: Ankle Dypfurix-REQYW-UJ, Leg Swelling and Uiljp-YKZDJ-DG documented in this encounterSumma Health05-03-2024 Telephone encounter Note * Telephone Encounter - [...] Please advise. Thank you. Christian Bob LPN. [facility]05-03-2024 Miscellaneous Notes* Telephone Encounter - Christian Bob [...] you. Christian Bob LPN. documented in this encounterSumma Health04-24-2024 Miscellaneous Notes* Telephone Encounter - Renetta Gant MA - 01/09/2024 10:36 AM EDT Patient phones requesting refills as follows: Requested Prescriptions Pending Prescriptions Disp Refills ELIQUIS 5 mg tab(s) 60 tablet 1 Sig: Take 1 tablet by mouth two times a day. Please review and advise. Renetta Gant MA documented in this encounterSumma Health04-24-2024 Telephone encounter Note * Telephone Encounter - Renetta Gant MA - 01/09/2024 10:36 AM EDT Patient phones requesting refills as follows: Requested Prescriptions Pending Prescriptions Disp Refills ELIQUIS 5 mg tab(s) 60 tablet 1 Sig: Take 1 tablet by mouth two times a day. Please review and advise. Renetta Gant MA [facility]04-16-2024 Miscellaneous Notes* Telephone Encounter - Mathieu Virgen MD - 01/01/2024 2:13 PM EDT See letter. documented in this encounterSumma Health04-16-2024 Miscellaneous Notes* Telephone Encounter - Mathieu Virgen MD - 01/01/2024 2:12 PM EDT See other note * Telephone Encounter - Vikas Regalado RN - 01/01/2024 12:07 PM EDT Daughter, Farida, reports she spoke with [employer], who informed her pcp would need to write a Prior Auth letter stating condition and diagnoses, and specify patient needs a lite weight, andfax it to [employer] at fax # [phone]. [facility] would then decide if they will cover it. Please phone Farida with any questions. documented in this encounterSumma Health04-15-2024 Miscellaneous Notes* Telephone Encounter - Mathieu Virgen MD - 12/31/2023 9:37 AM EDT Printed. * Telephone Encounter - Jaylene Henley LPN - 12/31/2023 8:46 AM EDT See Indelsult message needs it to be for this scooter please. documented in this encounterSumma Health04-09-2024 Miscellaneous Notes* Addendum Note - Mathieu Virgen MD - 12/25/2023 2:15 PM EDTAddended by: MATHIEU VIRGEN on: 12/25/2023 02:15 PM Modules accepted: Orders documented in this encounterSumma Health04-09-2024 History of Present illness Narrative* Mathieu Virgen [...] frequency/results:does not check very often. Readings are "fairly" good when he does check. Hypoglycemic spells: No. Watching diet: No. Unexpected weight loss: No. Polyuria, polydipsia: No. Vision Changes: No. Foot lesions or numbness or pain: No. Still seeing Cardiology Still on Eliquis No bleeding risks. Reviewed recent visit with [facility]. His covid had been positive. Doing much better. No fever or chills. No cough. No dizziness. Latest Ref [facility] 11/28/2023 WBC 3.70 - 11.00 k/uL 10.24 [...] Abs Lymph 1.00 - 4.00 k/uL 2.31 Lea% % 11.1 Abs Lea <0.87 k/uL 1.14 (H) Eosin% % 3.4 [...] (1ST TIER UNIFINE PENTIPS) 31 gauge x 5/16" ndle 1 Each once daily. DX: E11.9 Insulin: Yes Insulin Syringe-Needle U-100 1/2 mL 29 x 1/2" syrg 1 Each once daily. USE ONE SYRINGE FOR EACH DOSE/1PER DAY, (E11.9, Z79.4) Diabetes mellitus type 2, insulin dependent. Lancets (ACCU-CHEK SOFTCLIX LANCETS) lancets Test blood sugar(s) 1 times daily. Dx: 250.00. Insulin: Yes COMPOUNDED PRESCRIPTION 1 Each twice daily. Accucheck compact test strips, dx-NIDDM flecainide (TAMBOCOR) 150 mg tablet Take 1 tablet by mouth every 12 hours. 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 [...] six months or prn documented in this encounterSumma Health02-29-2024 Miscellaneous Notes* Telephone Encounter - Julianna Hood [...] to file. Please advise documented in this encounterSumma Health02-28-2024 Miscellaneous Notes* Telephone Encounter - Tammy Davies LPN - 11/14/2023 4:17 PM EST Phoned patient daughter Farida went over notes below from [facility] KIRKPATRICK and aware rx sent to pharmacy. * Telephone Encounter - Vikas Travis PA-C - 11/14/2023 3:46 PM EST It was d/c'd on 09/06/2023 by Bibiana Cheung CNP, not clear why. The following approved medication requests have been transmitted electronically. Requested Prescriptions Signed Prescriptions Disp Refills dilTIAZem CD (CARDIZEM CD, CARTIA XT) 120 mg 24 hr capsule 90 capsule 3 Sig: Take 1 capsule by mouth once daily. Authorizing Provider: Vikas TRAVIS PA-C * Telephone Encounter - Julia [...] Please advise. Pt uses [facility] in [place]. Julia Chilel LPN documented in this encounterSumma Health02-28-2024 Miscellaneous Notes* Telephone Encounter - Tammy Davies [...] you. Tammy Davies LPN. documented in this encounterSumma Health02-16-2024 Miscellaneous Notes* Telephone Encounter - Jaylene Henley [...] 12/05/23 Jaylene Henley LPN documented in this encounterSumma Health01-27-2024 Miscellaneous Notes* Telephone Encounter - Miley Pemberton [...] you. Miley Pemberton Ma. documented in this encounterSumma Health01-06-2024 Discharge summary Author Tre Johnson [facility] September 22, 2023 2:48pm Note Date/Time September 22, 2023 10 :58am [facility] Medical Records Department [address] [place] [address] Emergency Department Summary 09/22/23 MR#: [id number] Acct: [id number] Name: FAISAL ALARCON Rep #:[id number] : 1945 78 From: Tre Johnson DO [...] he ate a big Mac and fries. [facility] Medical History Acute respiratory failure with [...] 71.2 H Lymph % (Auto) 14.7 L Lea % (Auto) 9.9 Eos % (Auto) 3.4 [...] 11:54 EST Reading Location ID and State: [facility] / [place] Tel , Service support , Discharge Plan [...] your Primary Care Provider. Call [facility] ([phone]) or report to the closest Emergency Room. Call 911 if necessary. 09/22/23 1448 <Electronically signed by Tre Johnson DO> Cosigner Signature (if applicable): CC: Dr. Mathieu Virgen MD ~ Signed [facility] Work Phone: 1(343) 299-538812-21-2023 Miscellaneous Notes* Telephone Encounter - Liyah Monroy [...] last month. Protocols used: Cough - Acute Rsiamnjdns-HQFIS-HE documented in this encounterSumma Health12-11-2023 Miscellaneous Notes* Telephone Encounter - Christian Bob - 08/27/2023 7:18 PM EST Patient phones requesting refills as follows: Requested Prescriptions Pending Prescriptions Disp Refills simvastatin (ZOCOR) 40 mg tablet 90 tablet 3 Sig: Take 1 tablet by mouth daily at bedtime. ALFA 07/23/23 NOV 12/05/23 Please review and advise. Christian Bob documented in this encounterSumma Health11-21-2023 Miscellaneous Notes* Telephone Encounter - Lulu Walls - 08/07/2023 2:34 PM EST Forms completed and signed and faxed back to [place] at [phone]. Patient informed. Lulu Walls * Telephone Encounter - Lulu Walls - 08/07/2023 2:14 PM EST Type of form: Patient Assistance. [facility] [employer] Form received via walk in When form is completed, Fax form to number on form. Form has been forwarded to Physician Desk: Dr. Virgen. Lulu Walls documented in this encounterSumma Health11-06-2023 History of Present illness Narrative* Brenda Arrington RT(Leslee) - 07/23/2023 3:00 PM EST Radiology Service [...] 23, 2023 2:55 PM documented in this encounterSumma Health11-06-2023 History of Present illness Narrative* Pio Nicole [...] pain described as intermittent light throbbing, currently /10. Radiating pain described as a light shock. [...] mouth every 12 hours. Prescribed by outside petroleum refinery operator famotidine (PEPCID) 20 mg tablet Take 1 [...] times daily before meals. Getting through [facility] metFORMIN ER (GLUCOPHAGE XR) 500 mg [...] (1ST TIER UNIFINE PENTIPS) 31 gauge x 5/16" ndle 1 Each once daily. DX: E11.9 Insulin: Yes Insulin Syringe-Needle U-100 1/2 mL 29 x 1/2" syrg 1 Each once daily. USE ONE [...] RIGHT Pio Nicole MD documented in this encounterSumma Health10-27-2023 Miscellaneous Notes* Telephone Encounter - Jaylene Henley LPN - 07/13/2023 4:19 PM EDT Notified that will place in medical records for picking machine operator helper. Can picking machine operator helper starting tomorrow 07/14/23. * Telephone Encounter - Mathieu Virgen MD - 07/13/2023 2:10 PM EDT Printed. * Telephone Encounter - Janet King Ma - 07/13/2023 1:49 PM EDT Received notification that patient will be due for re-enrollment for the [facility] patient assistance programs of Humalog and Gianni starting 09/17/23. Call to daughter and advised her of this. She will start the process and get it to us. She is asking for a handicap placard to be completed for pt. Once done, call her for picking machine operator helper. Janet King Ma documented in this encounterSumma Health10-03-2023 Miscellaneous Notes* Telephone Encounter - Jackelin Tinajero [...] you. Jackelin Tinajero RN documented in this encounterSumma Health09-23-2023 History of Present illness Narrative* Pio Nicole [...] three times daily before meals. Getting through [facility] metFORMIN ER (GLUCOPHAGE XR) 500 mg 24 [...] mouth every 12 hours. Prescribed by outside petroleum refinery operator aspirin 81 mg chewable tablet Take 81 mg by mouth once daily. insulin needles, DISPOSABLE, (1ST TIER UNIFINE PENTIPS) 31 gauge x 5/16" ndle 1 Each once daily. DX: E11.9 Insulin: Yes Insulin Syringe-Needle U-100 1/2 mL 29 x 1/2" syrg 1 Each once daily. USE ONE [...] FRONTAL/LAT Pio Nicole MD documented in this encounterSumma Health09-23-2023 Miscellaneous Notes* Telephone Encounter - Adele Arteaga [...] last 30 days. Protocols used: Influenza - Deyomomw-[id number]-YS documented in this encounterSumma Health09-21-2023 Miscellaneous Notes* Telephone Encounter - Kennedi Frey [...] you. Kennedi Frey LPN documented in this encounterSumma Health09-20-2023 History of Past illness Narrative* Problem Noted [...] of this encounter (statuses as of 06/06/2023) [facility]09-20-2023 History of Past illness Narrative* Problem Noted [...] of this encounter (statuses as of 06/08/2023) [facility]09-20-2023 History of Past illness Narrative* Problem Noted [...] of this encounter (statuses as of 06/09/2023) [facility]09-20-2023 History of Past illness Narrative* Problem Noted [...] of this encounter (statuses as of 06/09/2023) [facility]09-20-2023 History of Past illness Narrative* Problem Noted [...] of this encounter (statuses as of 06/21/2023) [facility]09-20-2023 History of Past illness Narrative* Problem Noted [...] of this encounter (statuses as of 07/13/2023) [facility]09-20-2023 History of Past illness Narrative* Problem Noted [...] of this encounter (statuses as of 07/24/2023) [facility]09-20-2023 History of Past illness Narrative* Problem Noted [...] of this encounter (statuses as of 08/08/2023) [facility]09-20-2023 History of Past illness Narrative* Problem Noted [...] of this encounter (statuses as of 08/29/2023) [facility]09-20-2023 History of Past illness Narrative* Problem Noted [...] of this encounter (statuses as of 09/07/2023) [facility]09-20-2023 History of Past illness Narrative* Problem Noted [...] of this encounter (statuses as of 10/14/2023) [facility]09-20-2023 History of Past illness Narrative* Problem Noted [...] of this encounter (statuses as of 11/02/2023) [facility]09-20-2023 History of Past illness Narrative* Problem Noted [...] of this encounter (statuses as of 11/15/2023) [facility]09-20-2023 History of Past illness Narrative* Problem Noted [...] of this encounter (statuses as of 11/15/2023) [facility]09-20-2023 History of Past illness Narrative* Problem Noted [...] of this encounter (statuses as of 12/26/2023) [facility]09-20-2023 History of Past illness Narrative* Problem Noted [...] of this encounter (statuses as of 01/01/2024) [facility]-20-[facility]23 History of Past illness Narrative* Problem Noted [...] of this encounter (statuses as of 01/02/2024) [facility]09-20-2023 History of Past illness Narrative* Problem Noted [...] of this encounter (statuses as of 01/02/2024) [facility]09-20-2023 History of Present illness Narrative* Mathieu Virgen [...] frequency/results:does not check very often. Readings are "fairly" good when he does check. Hypoglycemic spells: [...] Abs Lymph 1.00 - 4.00 k/uL 1.48 Lea% % 9.5 Abs Lea <0.87 k/uL 1.16 (H) Eosin% % 1.7 [...] Ketones, Urine Trace, Negative Negative Negative Specific [place], Ur 1.005 - 1.030 1.022 1.022 Hemoglobin/Blood,Ur Negative, Trace Negative Negative pH, Urine 5.0 - 8.0 5.5 5.5 Protein, Urine Trace, Negative Negative Trace Urobilinogen Negative Negative Negative Nitrites Negative Negative Negative Leukest Negative, 25 Rcok/uL Negative Negative WBC, Urine 0-5 /HPF 0-5 [...] three times daily before meals. Getting through [facility] losartan-hydroCHLOROthiazide (HYZAAR) 100-12.5 mg per tablet Take [...] mouth every 12 hours. Prescribed by outside petroleum refinery operator aspirin 81 mg chewable tablet Take 81 mg by mouth once daily. insulin needles, DISPOSABLE, (1ST TIER UNIFINE PENTIPS) 31 gauge x 5/16" ndle 1 Each once daily. DX: E11.9 Insulin: Yes Insulin Syringe-Needle U-100 1/2 mL 29 x 1/2" syrg 1 Each once daily. USE ONE [...] 130/64 Pulse 77 Ht 185.4 cm (6' 1") Wt 134.2 kg (295 lb 12.8 oz) [...] I48.0 - stable. Stay on meds. See [place] [facility] in the winter again. 4. [...] cough. Mathieu Virgen MD documented in this encounterSumma Health09-18-2023 Miscellaneous Notes* Telephone Encounter - Angelina Bliss [...] advise. Kristina Higuera LPN documented in this encounterSumma Health09-01-2023 Instructions* Patient Instructions* Vikas Travis PA-C - 05/18/2023 4:12 PM EDT Please push fluids with water, non-caffeinated and non-alcoholic beverages, 6-8 glasses today. If you feel weak, faint, or have chest pain, call 911 and have the squad take you to ER. Try to stay cool for the next few days and rest. documented in this encounterSumma Health09-01-2023 History of Present illness Narrative* Vikas Travis PA-C - 05/18/2023 3:11 PM EDT [...] mouth every 12 hours. Prescribed by outside petroleum refinery operator aspirin 81 mg chewable tablet Take 81 mg by mouth once daily. insulin needles, DISPOSABLE, (1ST TIER UNIFINE PENTIPS) 31 gauge x 5/16" ndle 1 Each once daily. DX: E11.9 Insulin: Yes 100 Each 11 Insulin Syringe-Needle U-100 1/2 mL 29 x 1/2" syrg 1 Each once daily. USE ONE [...] C (97.1 F) Ht 185.4 cm (6' 1") Wt 131 kg (288 lb 12.8 oz) [...] a chair. Negative Romberg. No past-pointing, normal extn-ga-ztdf. Seems stiff which I think is affecting his gait. EKG demonstrates normal sinus rhythm with first-degree AV block with NE of 222 MS, otherwise metrics are normal. 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 There is no change from prior EKG 03/01/2023 online under [facility]: I was able to download and [...] work drawn and we will try there. Vikas Travis PA-C documented in this encounterSumma Health08-30-2023 Miscellaneous Notes* Telephone Encounter - Mathieu Virgen [...] and advise. Gin Khan documented in this encounterSumma Health08-25-2023 Miscellaneous Notes* Telephone Encounter - Jaylene Henley LPN - 05/11/2023 3:48 PM EDT Forms completed and faxed. * Telephone Encounter - Jaylene Henley LPN - 05/11/2023 3:08 PM EDT Type of form: Prescription Assistance Form received via walk in When form is completed, Fax form to [phone] Form has been forwarded to Physician Desk: Dr. Param Henley LPN documented in this encounterSumma Health08-15-2023 History of Present illness Narrative* Vikas Travis PA-C - 05/01/2023 3:24 PM EDT Here to review bleeding area from largest skin tag removal yesterday. No areas bleeding on exam. Instructed if bleeding, hold pressure solidly for 5 minutes and recheck. BP 118/70 Pulse 80 Temp 36.6 C (97.9 F) (Left Tympanic) Resp 20 SpO2 96% Vikas Travis PA-C documented in this encounterSumma Health08-14-2023 Instructions* Patient Instructions* Vikas Travis PA-C - 04/30/2023 3:11 PM EDT [...] recheck in three weeks. documented in this encounterSumma Health08-14-2023 History of Present illness Narrative* Vikas Travis PA-C - 04/30/2023 2:00 PM EDT [...] times daily before meals. Getting through [facility] 5 Each 1 ELIQUIS 5 mg tab(s) [...] mouth every 12 hours. Prescribed by outside petroleum refinery operator aspirin 81 mg chewable tablet Take 81 mg by mouth once daily. insulin needles, DISPOSABLE, (1ST TIER UNIFINE PENTIPS) 31 gauge x 5/16" ndle 1 Each once daily. DX: E11.9 Insulin: Yes 100 Each 11 Insulin Syringe-Needle U-100 1/2 mL 29 x 1/2" syrg 1 Each once daily. USE ONE [...] (optional for EMERGENT procedures): No specimen collected. Vikas Travis PA-C PROCEDURE NOTE: Procedure explained in [...] sloughing. He expressed understanding. 50 minute appointment Vikas Travis PA-C documented in this encounterSumma Health07-28-2023 Miscellaneous Notes* Telephone Encounter - Shaye Schafer [...] Thank you. MANDI Santos documented in this encounterSumma Health07-06-2023 Miscellaneous Notes* Telephone Encounter - Denisha Shepard APRN.CNP - 03/22/2023 12:48 PM EDT This encounter was opened in error. documented in this encounterSumma Health06-19-2023 Instructions* Patient Instructions* Andrew Guallpa APRN.CNP - [...] more? National Digestive Diseases Information Clearinghouse2 Information [place], [place] [address] www.digestive.niddk.nih.gov email: References: National Digestive Diseases Information Clearinghouse. Constipation. digestive.niddk.nih.gov Accessed June 21, 2012. [employer] [employer]. Understanding Constipation. www.gastro.org. Accessed June 21, 2012. Copyright 2033-1370 [facility]. All rights reserved This information is provided by the [facility] and is not intended to replace the medical advice of your doctor or health care provider. Please consult your health care provider for advice about a specific medical condition. For additional health information, please contact the Center for Consumer Health Information at the [facility] or toll-free extension [phone]. If you prefer, you may visit [email or web address] or [email or web address]. This document was last reviewed on: 2012 index #405 documented in this encounterSumma Health06-19-2023 History of Present illness Narrative* Andrew Guallpa [...] mouth every 12 hours. Prescribed by outside petroleum refinery operator aspirin 81 mg chewable tablet Take 81 mg by mouth once daily. insulin needles, DISPOSABLE, (1ST TIER UNIFINE PENTIPS) 31 gauge x 5/16" ndle 1 Each once daily. DX: E11.9 Insulin: Yes Insulin Syringe-Needle U-100 1/2 mL 29 x 1/2" syrg 1 Each once daily. USE ONE [...] of care. This note was generated using Sentrigo software. It may contain errors in wording, punctuation, or spelling. Andrew Guallpa APRN.CAESAR documented in this encounterSumma Health06-16-2023 History of Present illness Narrative* Mathieu Virgen MD - 03/02/2023 4:21 PM EDT Patient presents with: ED Follow-up HPI: Patient presents today for office visit for ER follow up. HOSPITAL/ER FOLLOW UP: Reason for visit: 02/26/23 hypoglycemia (40) 03/01/23 abd pain and nausea Which facility: [facility] Diagnosis: mild dehydration, abd pain Testing done: [...] three times daily before meals. Getting through [facility] ELIQUIS 5 mg tab(s) Take 1 tablet [...] mouth every 12 hours. Prescribed by outside petroleum refinery operator aspirin 81 mg chewable tablet Take 81 mg by mouth once daily. insulin needles, DISPOSABLE, (1ST TIER UNIFINE PENTIPS) 31 gauge x 5/16" ndle 1 Each once daily. DX: E11.9 Insulin: Yes Insulin Syringe-Needle U-100 1/2 mL 29 x 1/2" syrg 1 Each once daily. USE ONE [...] UROLOGY Mathieu Virgen MD documented in this encounterSumma Health06-15-[address] Taylor [facility] March 01, 2023 10:43pm Note Date/Time March 01, 2023 8:54 pm [facility] Medical Records Department [address] [place] [address] Emergency Department Summary 03/01/23 MR#: [id number] Acct: [id number] Name: FAISAL ALARCON Rep #:[id number] : 1945 77 From: Kodi Taylor MD [...] Nothing specifically makes this better or worse. [facility] Medical History Acute respiratory failure with [...] % (Auto) 62.9 Lymph % (Auto) 21.9 Lea % (Auto) 11.2 H Eos % (Auto) [...] Clarity Clear Urine pH 5.0 Ur Specific [place] 1.025 Urine Protein 15 H Urine Glucose [...] sign of acute ST elevation or depression. NE interval is normal. QRS duration and QTc [...] your Primary Care Provider. Call [facility] ([phone]) or report to the closest Emergency Room. Call 911 if necessary. 03/01/232242 <Electronically signed by Kodi Taylor MD> Cosigner Signature (if applicable): CC: Dr. Mathieu Virgen MD ~ Signed [facility] Work Phone: 1(921) 867-601506-08-2023 Miscellaneous Notes* Telephone Encounter - Tammy Davies LPN - 02/22/2023 9:26 AM EDT Patient daughter Farida calling father can not get Diltiazem rx refilled the rx had been cancelled at the pharmacy. He has none left to take for his dose this morning. Computer shows rx had been cancelled, and Cartia XT showing on medication list. Daughter questioning he is to continue taking daily?If so will need new rx to [facility] pharmacy. Please advise documented in this encounterSumma Health06-02-2023 Miscellaneous Notes* Telephone Encounter - Janet King [...] repeated in 10-14 days. documented in this encounterSumma Health06-02-2023 Instructions* Patient Instructions* Denisha Shepard APRN.CNP - 02/16/2023 3:08 PM EDT Lurdes wrap. Rest Ice Prop the foot. Tylenol as needed. documented in this encounterSumma Health06-02-2023 History of Present illness Narrative* Denisha Shepard APRN.CAESAR - 02/16/2023 2:43 PM EDT This is [...] through the motion of standing. Currently is "aching". Never goes away. Hasn't taken anything for [...] mouth every 12 hours. Prescribed by outside petroleum refinery operator aspirin 81 mg chewable tablet Take 81 mg by mouth once daily. insulin needles, DISPOSABLE, (1ST TIER UNIFINE PENTIPS) 31 gauge x 5/16" ndle 1 Each once daily. DX: E11.9 Insulin: Yes Insulin Syringe-Needle U-100 1/2 mL 29 x 1/2" syrg 1 Each once daily. USE ONE [...] agrees with the plan. documented in this encounterSumma Health05-31-2023 Nurse Note* Michelle Jara RN - 02/14/2023 [...] well. Michelle Jara RN documented in this encounterSumma Health05-05-2023 History of Present illness Narrative* Mathieu Virgen [...] times daily before meals. Getting through [facility] ELIQUIS 5 mg tab(s) Take 1 [...] mouth every 12 hours. Prescribed by outside petroleum refinery operator aspirin 81 mg chewable tablet Take 81 mg by mouth once daily. insulin needles, DISPOSABLE, (1ST TIER UNIFINE PENTIPS) 31 gauge x 5/16" ndle 1 Each once daily. DX: E11.9 Insulin: Yes Insulin Syringe-Needle U-100 1/2 mL 29 x 1/2" syrg 1 Each once daily. USE ONE [...] SURGERY Mathieu Virgen MD documented in this encounterSumma Health03-15-2023 History of Present illness Narrative* Mathieu Virgen MD - 11/29/2022 9:33 AM EDT Patient presents with: Transition Of Care HPI: Patient presents today for office visit for hospital follow up. Seen in [facility] on 11/21/22. Discharged 11/21/22 Chest pain. No change in meds. Stress test negative. EF57% WBC elevated. Had previous heart cath. " Had walked an excessive amount that he [...] note: TRANSITION CARE MANAGEMENT (TCM) INITIAL CONTACT Interactive Media Marketing Strategist Outreach Provider Action/FYI: -pt admitted to [facility] on 11/21/22 for 24hr observation d/t chest [...] Abs Lymph 1.00 - 4.00 k/uL 1.95 Lea% % 9.8 Abs Lea <0.87 k/uL 1.09 (H) Eosin% % 4.1 [...] mouth every 12 hours. Prescribed by outside petroleum refinery operator aspirin 81 mg chewable tablet Take 81 mg by mouth once daily. insulin needles, DISPOSABLE, (1ST TIER UNIFINE PENTIPS) 31 gauge x 5/16" ndle 1 Each once daily. DX: E11.9 Insulin: Yes Insulin Syringe-Needle U-100 1/2 mL 29 x 1/2" syrg 1 Each once daily. USE ONE [...] 136/68 Pulse 85 Ht 185.4 cm (6' 1") Wt (!) 137.9 kg (304 lb) SpO2 [...] stable. Mathieu Virgen MD documented in this encounterSumma Health03-13-2023 Miscellaneous Notes* Telephone Encounter - Sheila Murcia [...] as the lab orders are in. PH> [phone]. Kennedi Frey LPN * Telephone Encounter - [...] Thank you, Michaelle HERBERT documented in this encounterSumma Health03-08-2023 History of Present illness Narrative* Christian Bob LPN - 11/22/2022 9:23 AM EST TRANSITION CARE MANAGEMENT (TCM) INITIAL CONTACT Interactive Media Marketing Strategist Outreach Provider Action/FYI: -pt admitted to [facility] on 11/21/22 for 24hr observation d/t chest [...] flowsheet data found. SUMMARY: -Pt discharged from [facility] on 11/21/22. -Admitted for: Chest Pain Do you have a hospital follow up appointment with your PCP? Appointment on 11/[address] Virgen. Yes. Remind patient of appointment date, time, and location. If not within 14 calendar days of discharge - please reschedule accordingly. Medical records from recent hospitalization: Epic Placed in provider mailbox for further review. documented in this encounterSumma Health03-07-2023 History and physical note Author Dr. Stevenson [facility] November 21, 2022 7:08am Note Date/Time November 21, 2022 6:46 am [facility] Medical Records Department [address] [place], [place] [id number] History & Physical Exam 11/21/22 0644 MR#: [id number] Acct: [id number] Name: FAISAL ALARCON Rep #:[id number] : 1945 77 From: Mariza Stevenson MD PCP: Dr. Mathieu Virgen MD Status:ADM I NO Location: [place] [address] HPI - General General Date of Admission: 11/21/22 Date of Service: 11/21/22 Chief Complaint: Chest pain. HPI Narrative The patient is a 77 y/o M w/ PMHx: PAF, BPH, HTN, HLD, IDDM, Nonobstructive CAD,Morbid obesity, Former tobacco use who presents to the [facility] ED on 11/21/22 initially earlier in the [...] included CBC with WC 12.1 coming 114.7, [id number] with left shift, BMP with sodium 134, [...] similar. In the ED patient administered NG. [facility] Medical History Acute respiratory failure with [...] Former tobacco use who presents to the [facility] ED on 11/21/22 initially earlier in the [...] 55 minutes. Charges/Coding Visit Charges Inpatient E&M: 35162 Init Hosp L2 Procedures Hospitalists Procedures: 25101 Advncd Care Plan 30 Min 11/21/22 0708 <Electronically signed by Mariza Stevenson MD> Cosigner Signature (if applicable): CC: Dr. Mariza Stevenson MD; Dr. Mathieu Virgen MD~ Signed [facility] Work Phone: [phone]) 697-546902-25-2023 Miscellaneous Notes* Telephone Encounter - Christian Bob LPN - 11/11/2022 10:44 AM EST Patient phones requesting refills as follows: Requested Prescriptions Pending Prescriptions Disp Refills losartan-hydroCHLOROthiazide (HYZAAR) 100-12.5 mg per tablet 90 tablet 1 Sig: Take 1 tablet by mouth once daily. Please review and advise. Christian Bob LPN documented in this encounterSumma Health02-24-2023 Miscellaneous Notes* Telephone Encounter - Gin Herbert - 11/10/2022 11:30 AM EST Pharmacy verified in [facility] Patient has been identified by name and [...] advise. Gin Longoria Pss documented in this encounterSumma Health02-09-2023 Miscellaneous Notes* Telephone Encounter - Kaitlyn Hernández [...] Primary Care Clinical Pharmacist documented in this encounterSumma Health01-30-2023 Miscellaneous Notes* Addendum Note - Kaitlyn Hernández [...] what copay is. If affordable, she will picking machine operator helper supply. If not affordable, she will let [...] Will await daughter's call. Kaitlyn Hernández PharmD, [facility] Primary Care Clinical Pharmacist * Telephone Encounter - Kaitlyn Hernández RPh - 10/16/2022 12:24 PM EST Patient's daughter, Farida, called PharmAdry and LMOM stating patient will be running out of insulin tomorrow, needs another free trial card. Patient has application in for [employer] P[employer]. She called [employer] this AM, states they still have not processed application and it can take up to 30 days. States patient is going to be out of insulin tomorrow. She reports that she did not provide the pharmacy with the coupon card but the copayearlier this month was $0. Uncertain if pharmacy used their own coupon or if patient's insurance covered the cost of insulin. PharmAdry advised daughter to contact [employer] and ask them to process the Basaglar [...] to keep me informed. Kaitlyn Hernández PharmD, [facility] Primary Care Clinical Pharmacist documented in this encounterSumma Health01-18-2023 Miscellaneous Notes* Telephone Encounter - Christian Bob LPN - 10/04/2022 9:32 AM EST Patient phones requesting refills as follows: Requested Prescriptions Pending Prescriptions Disp Refills metFORMIN ER (GLUCOPHAGE XR) 500 mg 24 hr tablet 360 tablet 3 Sig: Take 2 tablets by mouth twice daily before meals. ALFA 05/31/22 11/29/22 Please review and advise. Christian Bob LPN documented in this encounterSumma Health01-18-2023 Miscellaneous Notes* Telephone Encounter - Christian Bob LPN - 10/04/2022 9:31 AM EST Patient phones requesting refills as follows: Requested Prescriptions Pending Prescriptions Disp Refills carvedilol (COREG) 25 mg tablet 180 tablet 1 Sig: Take 1 tablet by mouth twice daily. [facility] 05/31/22 11/29/22 Please review and advise. Christian Bob LPN documented in this encounterSumma Health01-13-2023 Miscellaneous Notes* Telephone Encounter - Kaitlyn Hernández, [facility] - 09/29/2022 9:18 AM EST Patient's daughter, Farida, called PharmD and LMOM stating the [employer] [facility] application for insulins was submitted this [...] spoke with patient's daughter. Sent her a Badoo message with a Basaglar Free Trial Offer. [...] Provider: MATHIEU VIRGEN Ordering User: KAITLYN HERNÁNDEZ [facility] documented in this encounterSumma Health01-10-2023 Miscellaneous Notes* Telephone Encounter - Janet King Ma - 09/26/2022 9:51 AM EST Talked to daughter and advised of time and fax number. Janet King Ma * Telephone Encounter - Jaylene Henley LPN - 09/25/2022 8:01 PM EST Sent from [phone] at 8:00pm. (If no error report in [...] give to daughter so she can have [facility] shipped for this week. * Telephone Encounter [...] of medications assistance forms for insulins through [facility]. Asking if these were received and fill out? Please fax this [phone]. Please contact Farida back either way. If provider does not have form Farida can come by and drop of other form. Please review and advise, Reanna Brannon RN documented in this encounterSumma Health12-05-2022 Miscellaneous Notes* Telephone Encounter - Alejandrina Herbert [...] notify patient. Alejandrina Herbert documented in this encounterSumma Health11-21-2022 Miscellaneous Notes* Telephone Encounter - Reanna Brannon [...] 6. PAIN: Has no pain 7. TETANUS: "When was the last tetanus booster?" Unsure Protocols used: Skin Foreign [id number] documented in this encounterSumma Health10-06-2022 Miscellaneous Notes* Telephone Encounter - Kaitlyn Hernández RPh - 06/22/2022 11:52 AM EDT PharmAdry sent request to PAP technicians to assist with [employer] application for Jardiance 10mg daily. Kaitlyn Hernández PharmD, [facility] Primary Care Clinical Pharmacist documented in this encounterSumma Health10-06-2022 History of Present illness Narrative* Kaitlyn Hernández [...] been eating a lot of fair food. "I need to watch myself." Says the fair is over this week. [...] adverse effects DIET/EXERCISE/SOCIAL Hx: Has been eating [employer] food a lot this summer; went to [place] [employer] daily; goes several times per week Fried veggies, sandwiches Breakfast: couple of eggs, 4 pieces muñoz; occasionally will have waffle Lunch: yesterday had small serving mashed potatoes, baked beans, and steak Dinner: usually the same as lunch; occasionally will have salad No exercise MEDICATIONS: Pill bottles are not present Adherence: denies missed doses [facility]acy: [facility] in [place] Rx coverage: [employer] Affordability: Gets Eliquis, Humalog, [...] mouth every 12 hours. Prescribed by outside petroleum refinery operator insulin glargine (LANTUS SOLOSTAR U-100 INSULIN) 100 unit/mL (3 mL) Inject 90 Units subcutaneously daily at bedtime. Use this OR Semglee, not both. insulin lispro (HUMALOG KWIKPEN INSULIN) 100 unit/mL Inject 26 Units subcutaneously three times daily before meals. insulin needles, DISPOSABLE, (1ST TIER UNIFINE PENTIPS) 31 gauge x 5/16" ndle 1 Each once daily. DX: E11.9 Insulin: Yes Insulin Syringe-Needle U-100 1/2 mL 29 x 1/2" syrg 1 Each once daily. USE ONE [...] TG 130 08/16/2021 The ASCVD Risk score (Underwood DK, et al., 2019) failed to calculate [...] time was 35 minutes. documented in this encounterSumma Health10-06-2022 Instructions* Patient Instructions* Kaitlyn Hernández RPh - 06/22/2022 11:00 AM EDT START Jardiance 10mg daily. If it is too expensive, let me know. Start to work on your diet. We want all blood sugars to be less than 200 mg/dL. documented in this encounterSumma Health09-14-2022 History of Present illness Narrative* Mathieu Virgen [...] Abs Lymph 1.00 - 4.00 k/uL 1.67 Lea% % 11.8 Abs Lea <0.87 k/uL 1.20 (H) Eosin% % 3.3 [...] mouth every 12 hours. Prescribed by outside petroleum refinery operator simvastatin (ZOCOR) 40 mg tablet Take 1 tablet by mouth daily at bedtime. aspirin 81 mg chewable tablet Take 81 mg by mouth once daily. insulin needles, DISPOSABLE, (1ST TIER UNIFINE PENTIPS) 31 gauge x 5/16" ndle 1 Each once daily. DX: E11.9 Insulin: Yes tamsulosin ER (FLOMAX) 0.4 mg cap Take 0.4 mg by mouth once daily. Prescribed by Dr. Daley, Urologist Insulin Syringe-Needle U-100 1/2 mL 29 x 1/2" syrg 1 Each once daily. USE ONE [...] 136/68 Pulse 87 Ht 185.4 cm (6' 1") Wt 136.1 kg (300 lb) SpO2 94% [...] RTO in six month documented in this encounterSumma Health08-22-2022 Miscellaneous Notes* Telephone Encounter - Christian Bob LPN - 05/08/2022 5:59 PM EDT Patient phones requesting refills as follows: Requested Prescriptions Pending Prescriptions Disp Refills losartan-hydroCHLOROthiazide (HYZAAR) 100-12.5 mg per tablet 90 tablet 1 Sig: Take 1 tablet by mouth once daily. ALFA 03/03/22 NOV 05/31/22 Please review and advise. Christian Bob LPN documented in this encounterSumma Health07-23-2022 History of Present illness Narrative* Andrew Guallpa APRN.PCU RN - 04/08/2022 2:52 PM EDT Subjective HPI Nontoxic-appearing male presents urgent care chief complaint medication concerns. Patient states hetook his evening carvedilol 4 to 5 hours to earlier today. States he is concerned because his "heart feels funny". States "my heart hurts". States for lunch he accidentally took his [...] with: Acute Visit: [facility], worried about having affects with carvedilol [...] mouth every 12 hours. Prescribed by outside petroleum refinery operator simvastatin (ZOCOR) 40 mg tablet Take 1 tablet by mouth daily at bedtime. aspirin 81 mg chewable tablet Take 81 mg by mouth once daily. insulin needles, DISPOSABLE, (1ST TIER UNIFINE PENTIPS) 31 gauge x 5/16" ndle 1 Each once daily. DX: E11.9 Insulin: Yes tamsulosin ER (FLOMAX) 0.4 mg cap Take 0.4 mg by mouth once daily. Prescribed by Dr. Daley, Urologist Insulin Syringe-Needle U-100 1/2 mL 29 x 1/2" syrg 1 Each once daily. USE ONE [...] care. Andrew Guallpa APRN.CAESAR documented in this encounterSumma Health07-07-2022 Miscellaneous Notes* Telephone Encounter - Kaitlyn Hernández RPh - 03/23/2022 1:22 PM EDT Lisy completed Rx section of [facility] application for Basaglar (to replace Lantus). Full application not required since patient already enrolled and receiving free Humalog. Rx placed on PCP's desk for signature. Kaitlyn Hernández PharmD, [facility] Primary Care Clinical Pharmacist Lisa Souza [facility] documented in this encounterSumma Health07-07-2022 History of Present illness Narrative* Kaitlyn Hernández [...] present Adherence: denies missed doses [facility]: [facility] Rx coverage: [employer] Affordability: Gets Eliquis, Humalog, and Sanofi through [employer] Diabetes supplies: [employer] System: daughter sets up pill box, [...] mouth every 12 hours. Prescribed by outside petroleum refinery operator insulin glargine (LANTUS SOLOSTAR U-100 INSULIN) 100 [...] (1ST TIER UNIFINE PENTIPS) 31 gauge x 5/16" ndle 1 Each once daily. DX: E11.9 Insulin: Yes Insulin Syringe-Needle U-100 1/2 mL 29 x 1/2" syrg 1 Each once daily. USE ONE [...] Basaglar so he can get it through [employer] to replace Lantus Applauded on reducing [...] verbalized understanding of instructions. Kaitlyn Hernández PharmD, [facility] Primary Care Clinical Pharmacist Lisa Souza [facility] The majority of the pharmacy visit (> 50%) was spent counseling and/or coordinating care for thepatient. interaction: face to face time was 35 minutes. documented in this encounterSumma Health07-07-2022 Instructions* Patient Instructions* Kaitlyn Hernández RPh - [...] accurate than wrist cuffs. documented in this encounterSumma Health06-20-2022 Miscellaneous Notes* Telephone Encounter - Mathieu Virgen [...] and resend to the [facility] [address]. Daughter, Farida, can be reached at [phone] documented in this encounterSumma Health06-20-2022 Miscellaneous Notes* Telephone Encounter - Jaylene Henley LPN - 03/06/2022 12:13 PM EDT Patient has been identified by name and date of : Yes Type of form: Prescription Assistance [facility] (humalog kwconniepen) Form received via: at visit form was given to Dr Param Virgen completed form When form is completed, fax form to fax number provided. Form has been forwarded to: Nurse and faxed 03/06/22 Jaylene Henley LPN documented in this encounterSumma Health06-17-2022 History of Present illness Narrative* Mathieu Virgen [...] He is eating smaller portions. Checks sugars "once in a while." No hypoglycemic spells. Breathing is about the [...] mouth every 12 hours. Prescribed by outside petroleum refinery operator Losartan-hydroCHLOROthiazide 100-12.5 mg per tablet Take 1 [...] (1ST TIER UNIFINE PENTIPS) 31 gauge x 5/16" ndle 1 Each once daily. DX: E11.9 Insulin: Yes tamsulosin ER (FLOMAX) 0.4 mg cap Take 0.4 mg by mouth once daily. Prescribed by Dr. Daley, Urologist Insulin Syringe-Needle U-100 1/2 mL 29 x 1/2" syrg 1 Each once daily. USE ONE [...] three months and prn. documented in this encounterSumma Health05-26-2022 Miscellaneous Notes* Telephone Encounter - Jaylene Henley LPN - 02/09/2022 11:36 AM EDT [facility] [address]. Chart Copy of medications dispensed to patient for home use February 09, 2022 Physician Initial: MIRANDA Alarcon Medication: Lantus Qty: 5 boxes Directions: Inject 90 units daily. Medications administered, dispensed and verified on the date indicated above Patient has been notified to picking machine operator helper medication in Dr. Virgen's office. Jaylene Henley LPN documented in this encounterSumma Health05-24-2022 Miscellaneous Notes* Telephone Encounter - Kaitlyn Hernández RPh - 02/07/2022 10:17 AM EDT PharmAdry called daughter. She said they were able to get Lantus yesterday, got full box of Lantus for$35 (insurance covered it). PharmAdry spoke with daughter, will plan to apply for [employer] [facility] in March at next PharmD appt so patient doesn't have this issue again with Sanofi. Kaitlyn Hernández PharmD, [facility] Primary Care Clinical Pharmacist [facility] * Telephone Encounter - Kaitlyn Hernández, [facility] - 02/06/2022 4:01 PM EDT Daughter, Farida, [...] me updated on status. Kaitlyn Hernández PharmD, [facility] Primary Care Clinical Pharmacist Lisa Souza [facility] * Telephone Encounter - Kaitlyn [place], [facility] - 02/06/2022 2:37 PM EDT PharmD called [...] Semglee - can purchase a vial from [employer] with a GoodRx coupon for ~$60. Patient [...] pharmacy). Patient has issues getting Lantus through [employer]. She has no issues getting Humalog through [facility]. Briefly discussed possibly switching patient from Lantus to Basaglar later this summer so no longer has issues with insulin supply. Daughter thought this would be a good idea so will do paperwork later this summer. PharmD will await daughter's call. Kaitlyn Hernández PharmD, [facility] Primary Care Clinical Pharmacist Lisa Souza [facility] * Telephone Encounter - Jaylene Henley [...] patient insurance. Family could checkwith [employer]([phone]) for short term cost assistance. Negrita will also send note to Diana as Sw noted that patient follows with Kaitlyn in regards to hisdiabetes care and see if she has any short term assistance ideas. * Telephone Encounter - Jaylene Henley LPN - 02/06/2022 10:02 AM EDT Patient daughter states that [employer] sends refill form to our office 1 [...] Virgen MD] [facility]erred pharmacy: [facility] [place] [address] [address] - [phone] Delivery method: MailD Daughter says patient will be out of the medication tonight. The shipment for this medication does not go out until today so she is asking for a pen that he could have. Please return call to daughter, [phone] documented in this encounterSumma Health05-20-2022 Instructions* Patient Instructions* Papito Castano V, DO - 02/03/2022 2:02 PM EDT Thank you for choosing the [facility] for your acute care needs. [...] physician or booking an appointment, please call [phone] or speak with any Patient Lecturer Of Portuguese. Hours: Sunday through Sunday 7:30 am to 7:00 pm. Sunday and Sunday: 8:00 am to 2:30 pm. documented in this encounterSumma Health05-20-2022 History of Present illness Narrative* Papito Castano [...] calf and leg. [facility] was [facility] hastried elevation, compression wrapping. PAST MEDICAL [...] mouth every 12 hours. Prescribed by outside petroleum refinery operator Losartan-hydroCHLOROthiazide 100-12.5 mg per tablet Take 1 [...] (1ST TIER UNIFINE PENTIPS) 31 gauge x 5/16" ndle 1 Each once daily. DX: E11.9 Insulin: Yes Insulin Syringe-Needle U-100 1/2 mL 29 x 1/2" syrg 1 Each once daily. USE ONE [...] Continuous Intervention/Comfort measure: Medication documented in this encounterSumma Health05-18-2022 Miscellaneous Notes* Telephone Encounter - Tammy Davies LPN - 02/01/2022 10:28 AM EDT Patient daughter Farida calling asking for refill on father Lantus insulin 90 day supply from Patient assistance with [employer]. Yesterday request was not sent correctly. She said gets faxed to [employer]. The Insulin gets mailed to his home. She did not have the fax number, she gave me phone number for [employer] [phone]. Father has 4 days Lantus left. Please advise documented in this encounterSumma Health05-17-2022 Miscellaneous Notes* Telephone Encounter - Janet King [...] patient. Radha Frey Pss documented in this encounterSumma Health05-13-2022 History of Present illness Narrative* Saad Park APRN.PCU RN - 01/27/2022 3:27 PM EDT Images from the original note were not included. 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 This started today. Has tried nothing for relief. Symptoms are worsened by walking. Denies numbness/tingling of right lower extremity. 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 Prescribed by outside petroleum refinery operator insulin glargine (LANTUS SOLOSTAR U-100 INSULIN) 100 [...] (1ST TIER UNIFINE PENTIPS) 31 gauge x 5/16" ndle 1 Each once daily. DX: E11.9 Insulin: Yes tamsulosin ER (FLOMAX) 0.4 mg cap Take 0.4 mg by mouth once daily. Prescribed by Dr. Daley, Urologist Insulin Syringe-Needle U-100 1/2 mL 29 x 1/2" syrg 1 Each once daily. USE ONE [...] plan Saad Park APRN.CAESAR documented in this encounterSumma Health04-28-2022 Miscellaneous Notes* Telephone Encounter - Kaitlyn Hernández RPh - 01/12/2022 3:09 PM EDT During PharmD visit for DM today, patient's daughter reported patient needs a refill of colestipol.Refill order pended for PCP signature if appropriate. Pending Prescriptions Disp Refills COLESTIPOL 1 GRAM TABLET 60 tablet 5 Sig: Take 1 tablet by mouth twice daily. JANET: No Kaitlyn Hernández RPh documented in this encounterSumma Health04-28-2022 History of Present illness Narrative* Kaitlyn Hernández [...] Humalog, and Sanofi through [employer] Diabetes supplies: [employer]: daughter sets up pill box, 2 [...] mouth every 12 hours. Prescribed by outside petroleum refinery operator flecainide (TAMBOCOR) 150 mg tablet Take 150 mg by mouth twice daily. insulin glargine (LANTUS SOLOSTAR U-100 INSULIN) 100 unit/mL (3 mL) Inject 90 Units subcutaneously daily at bedtime. insulin lispro (HUMALOG KWIKPEN INSULIN) 100 unit/mL Inject 26 Units subcutaneously three times daily before meals. insulin needles, DISPOSABLE, (1ST TIER UNIFINE PENTIPS) 31 gauge x 5/16" ndle 1 Each once daily. DX: E11.9 Insulin: Yes Insulin Syringe-Needle U-100 1/2 mL 29 x 1/2" syrg 1 Each once daily. USE ONE [...] verbalized understanding of instructions. Kaitlyn Hernández PharmD, [facility] Primary Care Clinical Pharmacist iLsa Souza [facility] The majority of the pharmacy visit (> 50%) was spent counseling and/or coordinating care for thepatient. interaction: face to face time was 35 minutes. documented in this encounterSumma Health04-28-2022 Instructions* Patient Instructions* Kaitlyn Hernández RPh - [...] butter DRINK MORE WATER documented in this encounterSumma Health04-18-2022 Miscellaneous Notes* Telephone Encounter - Kaitlyn Hernández RPh - 01/02/2022 2:42 PM EDT PharmAdry called [employer] ([phone]) and spoke with a helpful billing customer service representative. She stated patient is due to have a shipment tomorrow. [employer] changed the delivery information so this shipment will be shipped to patient's home. PharmD called patient's daughter, Farida, and informed of the above information. Kaitlyn Hernández PharmD, [facility] Primary Care Clinical Pharmacist Lisa Souza [facility] * Telephone Encounter - Denisha Shepard APRN.CNP - 12/30/2021 5:51 PM EDT Is this something that can be done, or does it need to come here? * Telephone Encounter - Nisha Wilson - 12/30/2021 12:05 PM EDT Patient's daughter calling regarding patient's request for medicationi rebelulin lispro (HUMALOG KWIKPEN INSULIN) 100 unit/mL . Daughter, Farida says the medication is shipped by [facility], . Medication is being sent to [facility] instead of patient's home. Daughter is asking for this to be changed to being delivered to patient's home. Please return call to Farida ([phone]) when corrected. documented in this encounterSumma Health04-14-2022 Miscellaneous Notes* Telephone Encounter - Leslie Herbert [...] notify patient. Leslie Herbert documented in this encounterSumma Health04-14-2022 Miscellaneous Notes* Telephone Encounter - Janet King [...] corrected script for Humalog is sent to [facility] Patient Assistance. The last script sent was for 16 units and not 26 units. He is going to run out of insulin Please advise insulin lispro (HUMALOG KWIKPEN INSULIN) 100 unit/mL 5 Pen 1 11/03/2021 Sig: Inject 26 Units subcutaneously three times daily before meals. Class: Med Update Route: SUBCUTANEOUS documented in this encounterSumma Health03-31-2022 Miscellaneous Notes* Telephone Encounter - Janet King [...] [facility] Primary Care Clinical Pharmacist Lisa Souza [facility] documented in this encounterSumma Health10-27-2021 History of Present illness Narrative* Malik Luna RT(R) - 07/13/2021 10:10 AM EDT Radiology [...] 13, 2021 10:08 AM documented in this encounterSumma Health09-08-2021 History of Present illness Narrative* Brenda Arrington [...] 25, 2021 2:53 PM documented in this encounterSumma Health05-17-2021 History of Past illness Narrative* Problem Noted Date Resolved Date SOB (shortness of breath) 01/31/20212020 Abnormal EKG 01/31/2021 05/06/2021 Sciatica 06/15/2005 05/06/2021 Paranoid schizophrenia, subc hronic condition with acute exacerbation 05/11/2005 04/23/2017 documented as of this encounter (statuses as of 12/12/2021) [facility]05-17-2021 History of Past illness Narrative* Problem Noted Date Resolved Date SOB (shortness of breath) 01/31/20212020 Abnormal EKG 01/31/2021 05/06/2021 Sciatica 06/15/2005 05/06/2021 Paranoid schizophrenia, subc hronic condition with acute exacerbation 05/11/2005 04/23/2017 documented as of this encounter (statuses as of 12/15/2021) [facility]05-17-2021 History of Past illness Narrative* Problem Noted Date Resolved Date SOB (shortness of breath) 01/31/20212020 Abnormal EKG 01/31/2021 05/06/2021 Sciatica 06/15/2005 05/06/2021 Paranoid schizophrenia, subc hronic condition with acute exacerbation 05/11/2005 04/23/2017 documented as of this encounter (statuses as of 12/29/2021) [facility] History of Past illness Narrative* Problem Noted Date Resolved Date SOB (shortness of breath) 01/31/20212020 Abnormal EKG 01/31/2021 05/06/2021 Sciatica 06/15/2005 05/06/2021 Paranoid schizophrenia, subc hronic condition with acute exacerbation 05/11/2005 04/23/2017 documented as of this encounter (statuses as of 01/02/2022) [facility] History of Past illness Narrative* Problem Noted Date Resolved Date SOB (shortness of breath) 01/31/20212020 Abnormal EKG 01/31/2021 05/06/2021 Sciatica 06/15/2005 05/06/2021 Paranoid schizophrenia, subc hronic condition with acute exacerbation 05/11/2005 04/23/2017 documented as of this encounter (statuses as of 01/12/2022) [facility] History of Past illness Narrative* Problem Noted Date Resolved Date SOB (shortness of breath) 01/31/20212020 Abnormal EKG 01/31/2021 05/06/2021 Sciatica 06/15/2005 05/06/2021 Paranoid schizophrenia, subc hronic condition with acute exacerbation 05/11/2005 04/23/2017 documented as of this encounter (statuses as of 01/12/2022) [facility] History of Past illness Narrative* Problem Noted Date Resolved Date SOB (shortness of breath) 01/31/20212020 Abnormal EKG 01/31/2021 05/06/2021 Sciatica 06/15/2005 05/06/2021 Paranoid schizophrenia, subc hronic condition with acute exacerbation 05/11/2005 04/23/2017 documented as of this encounter (statuses as of 01/27/2022) [facility] History of Past illness Narrative* Problem Noted Date Resolved Date SOB (shortness of breath) 01/31/20212020 Abnormal EKG 01/31/2021 05/06/2021 Sciatica 06/15/2005 05/06/2021 Paranoid schizophrenia, subc hronic condition with acute exacerbation 05/11/2005 04/23/2017 documented as of this encounter (statuses as of 01/31/2022) [facility] History of Past illness Narrative* Problem Noted Date Resolved Date SOB (shortness of breath) 01/31/20212020 Abnormal EKG 01/31/2021 05/06/2021 Sciatica 06/15/2005 05/06/2021 Paranoid schizophrenia, subc hronic condition with acute exacerbation 05/11/2005 04/23/2017 documented as of this encounter (statuses as of 02/01/2022) [facility] History of Past illness Narrative* Problem Noted Date Resolved Date SOB (shortness of breath) 01/31/20212020 Abnormal EKG 01/31/2021 05/06/2021 Sciatica 06/15/2005 05/06/2021 Paranoid schizophrenia, subc hronic condition with acute exacerbation 05/11/2005 04/23/2017 documented as of this encounter (statuses as of 02/02/2022) [address]17-2021 History of Past illness Narrative* Problem Noted Date Resolved Date SOB (shortness of breath) 01/31/20212020 Abnormal EKG 01/31/2021 05/06/2021 Sciatica 06/15/2005 05/06/2021 Paranoid schizophrenia, subc hronic condition with acute exacerbation 05/11/2005 04/23/2017 documented as of this encounter (statuses as of 02/03/2022) [facility] History of Past illness Narrative* Problem Noted Date Resolved Date SOB (shortness of breath) 01/31/20212020 Abnormal EKG 01/31/2021 05/06/2021 Sciatica 06/15/2005 05/06/2021 Paranoid schizophrenia, subc hronic condition with acute exacerbation 05/11/2005 04/23/2017 documented as of this encounter (statuses as of 02/07/2022) [facility] History of Past illness Narrative* Problem Noted Date Resolved Date SOB (shortness of breath) 01/31/20212020 Abnormal EKG 01/31/2021 05/06/2021 Sciatica 06/15/2005 05/06/2021 Paranoid schizophrenia, subc hronic condition with acute exacerbation 05/11/2005 04/23/2017 documented as of this encounter (statuses as of 02/09/2022) [address]17-2021 History of Past illness Narrative* Problem Noted Date Resolved Date SOB (shortness of breath) 01/31/20212020 Abnormal EKG 01/31/2021 05/06/2021 Nonspecific abnormal results of liver function s tudy 03/31/2009 03/03/2022 Overview: ALT 57 in 02-22, 83 in 09-25, 75 in 03-25 Clarify when Crestor started as labs first abnl on 09-19-08 US 03-25: multiple, small GS with no GB wall thickening, liver with fatty infiltration Sciatica 06/15/2005 05/06/2021 Paranoid schizophrenia, subc hronic condition with acute exacerbation 05/11/2005 04/23/2017 documented as of this encounter (statuses as of 03/03/2022) [facility] History of Past illness Narrative* Problem Noted [...] of this encounter (statuses as of 03/06/2022) [facility] History of Past illness Narrative* Problem Noted [...] of this encounter (statuses as of 03/06/2022) [facility] History of Past illness Narrative* Problem Noted [...] of this encounter (statuses as of 03/23/2022) [facility] History of Past illness Narrative* Problem Noted [...] of this encounter (statuses as of 03/23/2022) [facility] History of Past illness Narrative* Problem Noted [...] of this encounter (statuses as of 04/08/2022) [facility] History of Past illness Narrative* Problem Noted [...] of this encounter (statuses as of 05/08/2022) [facility] History of Past illness Narrative* Problem Noted [...] of this encounter (statuses as of 05/31/2022) [facility] History of Past illness Narrative* Problem Noted [...] of this encounter (statuses as of 06/22/2022) [facility] History of Past illness Narrative* Problem Noted [...] of this encounter (statuses as of 06/22/2022) [facility] History of Past illness Narrative* Problem Noted [...] of this encounter (statuses as of 08/14/2022) [facility] History of Past illness Narrative* Problem Noted [...] of this encounter (statuses as of 08/21/2022) [facility] History of Past illness Narrative* Problem Noted [...] of this encounter (statuses as of 09/26/2022) [facility] History of Past illness Narrative* Problem Noted [...] of this encounter (statuses as of 09/29/2022) [facility] History of Past illness Narrative* Problem Noted [...] of this encounter (statuses as of 10/04/2022) [facility] History of Past illness Narrative* Problem Noted [...] of this encounter (statuses as of 10/04/2022) [facility] History of Past illness Narrative* Problem Noted [...] of this encounter (statuses as of 10/16/2022) [facility] History of Past illness Narrative* Problem Noted [...] of this encounter (statuses as of 10/16/2022) [facility] History of Past illness Narrative* Problem Noted [...] of this encounter (statuses as of 10/26/2022) [address]17-2021 History of Past illness Narrative* Problem [...] of this encounter (statuses as of 11/10/2022) [facility] History of Past illness Narrative* Problem Noted [...] of this encounter (statuses as of 11/13/2022) [facility] History of Past illness Narrative* Problem Noted [...] of this encounter (statuses as of 11/22/2022) [facility] History of Past illness Narrative* Problem Noted [...] of this encounter (statuses as of 11/27/2022) [facility] History of Past illness Narrative* Problem Noted [...] of this encounter (statuses as of 11/29/2022) [facility] of Past illness Narrative* Problem Noted [...] of this encounter (statuses as of 01/19/2023) [facility] History of Past illness Narrative* Problem Noted [...] of this encounter (statuses as of 02/14/2023) [facility] History of Past illness Narrative* Problem Noted [...] of this encounter (statuses as of 02/16/2023) [facility] Past illness Narrative* Problem Noted [...] of this encounter (statuses as of 02/17/2023) [facility] History of Past illness Narrative* Problem Noted [...] of this encounter (statuses as of 02/22/2023) [facility] History of Past illness Narrative* Problem Noted [...] of this encounter (statuses as of 03/03/2023) [facility] History of Past illness Narrative* Problem Noted [...] of this encounter (statuses as of 03/06/2023) [facility] History of Past illness Narrative* Problem Noted [...] of this encounter (statuses as of 03/20/2023) [facility] History of Past illness Narrative* Problem Noted [...] of this encounter (statuses as of 03/22/2023) [facility] History of Past illness Narrative* Problem Noted [...] of this encounter (statuses as of 04/13/2023) [facility] History of Past illness Narrative* Problem Noted [...] of this encounter (statuses as of 04/26/2023) [facility] History of Past illness Narrative* Problem Noted [...] of this encounter (statuses as of 05/01/2023) [facility] History of Past illness Narrative* Problem Noted [...] of this encounter (statuses as of 05/02/2023) [facility] History of Past illness Narrative* Problem Noted [...] of this encounter (statuses as of 05/12/2023) [facility] History of Past illness Narrative* Problem Noted [...] of this encounter (statuses as of 05/17/2023) [facility] History of Past illness Narrative* Problem Noted [...] of this encounter (statuses as of 05/19/2023) [facility] History of Past illness Narrative* Problem Noted [...] of this encounter (statuses as of 06/04/2023) [facility] History of Present illness Narrative* Malik Luna [...] 24, 2021 2:41 PM documented in this encounter[facility] November 21, 2022 4:33pm Note Date/Time November 21, 2022 4:26 pm [facility] Medical Records Department [address] [place] [address] Discharge Summary 11/21/22 1625 MR#: [id number] Acct: [id number] Name: FAISAL ALARCON Rep #:[id number] : 1945 77 From: Narda Kebede MD PCP: Dr. Mathieu Virgen MD Status:ADM I NO Location: [place] [address] 1 Providers Date of Admission: 11/21/22 Date of [...] patient was placed on a monitored bed NH was ruled out with serial cardiac enzymes [...] Admission Admit Date/Time: 11/21/22 06:45 Attending Provider: Narda Kebede Primary Care Provider: Mathieu Virgen Consulting [...] Self Care Charges/Coding Visit Charges Inpatient E&M: 21261 Disch Hosp >30min 11/21/22 1633 <Electronically signed by Narda Kebede MD> Cosigner Signature (if applicable): CC: Dr. Narda Kebede MD; Dr. Mathieu Virgen MD~ Signed [facility] Work Phone: Evaluation note* Diagnosis Type 2 diabetes mellitus without complication, with long-term current use of insulin (HCC) documented in this encounter [facility] note* Diagnosis Type 2 diabetes mellitus without complication, with long-term current use of insulin (HCC) [facility] Diagnosis Type 2 diabetes mellitus without complication, with long-term current use of insulin (HCC) [facility] Diagnosis Type 2 diabetes mellitus without complication, with long-term current use of insulin (HCC)- Primary documented in this encounter [facility] note* Diagnosis Diarrhea, unspecified type documented in this encounter [facility] note* Diagnosis Strain of calf muscle, right, initial encounter- Primary [facility] Diagnosis Type 2 diabetes mellitus without complication, with long-term current use of insulin (HCC) [facility] Diagnosis Gastrocnemius tear, right, initial encounter- Primary [facility]* Diagnosis Type 2 diabetes mellitus without complication, with long-term current use of insulin (HCC) [facility] Diagnosis Onset Date Resolution Status Dyspnea on minimal exertion acute Paroxysmal atrial fibrillation acute Essential (primary) hypertension chronic Hyperlipidemia chronic Morbid obesity acute SOB (shortness of breath) [place] Morbid obesity acute SOB (shortness of breath) [place] Essential (primary) hypertension chronic Dyspnea on minimal exertion acute Paroxysmal atrial fibrillation acute Essential (primary) hypertension chronic Hyperlipidemia [facility] Work Phone: Evaluation note* Diagnosis Essential hypertension- Primary Unspecified essential hypertension Pure hypercholesterolemia Paroxysmal atrial fibrillation (HCC) Atrial fibrillation Type 2 diabetes mellitus with microalbuminuria, with long-term current use of insulin (HCC) Chronic anticoagulation Long-term (current) use of anticoagulants Need for hepatitis C screening test Special screening examination for other specified viral diseases [facility] Diagnosis Diarrhea, unspecified type [facility] Diagnosis Type 2 diabetes mellitus without complication, with long-term current use of insulin (HCC)- Primary Essential hypertension Unspecified essential hypertension [facility] Diagnosis Onset Date Resolution Status Dyspnea on minimal exertion acute Paroxysmal atrial fibrillation acute Essential (primary) hypertension chronic Hyperlipidemia chronic Morbid obesity acute Restrictive airway disease a [facility] Work Phone: Evaluation note* Diagnosis Chest pain, unspecified type- Primary Accidental medication error, initial encounter [facility] Diagnosis Essential hypertension Unspecified essential hypertension [facility] Diagnosis Essential hypertension- Primary Unspecified essential hypertension Paroxysmal atrial fibrillation (HCC) Atrial fibrillation Pure hypercholesterolemia Type 2 diabetes mellitus with microalbuminuria, with long-term current use of insulin (HCC) Chronic anticoagulation Long-term (current) use of anticoagulants Monocytosis Monocytosis (symptomatic) Need for influenza vaccination Need for prophylactic vaccination and inoculation against influenza [facility] Diagnosis Type 2 diabetes mellitus without complication, with long-term current use of insulin (HCC)- Primary [facility] Diagnosis Onset Date Resolution Status Dyspnea on minimal exertion acute Paroxysmal atrial fibrillation acute Essential (primary) hypertension chronic Hyperlipidemia chronic [facility] Work Phone: Evaluation note* Diagnosis Pure hypercholesterolemia [facility]* Diagnosis Type 2 diabetes mellitus without complication, with long-term current use of insulin ([facility]) [facility] Diagnosis Onset Date Resolution Status Essential (primary) hypertension chronic Nonobstructive atherosclerosis of coronary artery chronic Paroxysmal atrial fibrillation chronic Chest pain acute Dyspnea on minimal exertion acute History of atrial fibrillation acute [facility] Work Phone: Evaluation note* Diagnosis Type 2 diabetes mellitus with microalbuminuria, with long-term current use of insulin (HCC)- Primary [facility]* Diagnosis Chest pain, unspecified type- Primary Leukocytosis, unspecified type Type 2 diabetes mellitus with microalbuminuria, with long-term current use of insulin ([facility]) Schizophrenia, 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, chronic condition Paroxysmal atrial fibrillation (HCC) Atrial fibrillation Essential hypertension Unspecified essential hypertension Pure hypercholesterolemia [facility]* Diagnosis Skin mass- Primary Localized superficial swelling, mass, or lump [facility] Diagnosis Lesion of subcutaneous tissue- Primary Unspecified disorder of skin and subcutaneous tissue [facility] Diagnosis Acute left ankle pain- Primary [facility] Diagnosis Onset Date Resolution Status History of atrial fibrillation acute Chest pain resolved Dyspnea on minimal exertion resolved Shortness of breath on exertion acute [facility] Work Phone: Evaluation note* Diagnosis Nausea- Primary Nausea alone Hypoglycemia Hypoglycemia, unspecified Type 2 diabetes mellitus with microalbuminuria, with long-term current use of insulin ([facility]) Leukocytosis, unspecified type Abnormal serum level of lipase Other nonspecific abnormal serum enzyme levels Benign prostatic hyperplasia with lower urinary tract symptoms, symptom details unspecified Urinary retention Retention of urine, unspecified [facility] Diagnosis Acute constipation- Primary Unspecified constipation [facility]* Diagnosis OPENED IN ERROR- Primary To allow closing an encounter opened in error (used in SmartSet) [facility] Diagnosis Onset Date Resolution Status Shortness of breath on exertion [facility] Work Phone: Evaluation note* Diagnosis Inflamed acrochordon- Primary Unspecified hypertrophic and atrophic condition of skin Seborrheic keratoses, inflamed Inflamed seborrheic keratosis [facility]* Diagnosis Encounter for post surgical wound check- Primary [facility]* Diagnosis Near syncope- Primary Syncope and collapse Fall, initial encounter Acute upper respiratory infection Acute upper respiratory infections of unspecified site Morbid obesity (HCC) Morbid obesity [facility]* Diagnosis Essential hypertension- Primary Unspecified essential [...] not elsewhere classified [facility]* Diagnosis Diarrhea, unspecified type [facility]* Diagnosis Viral URI with cough- Primary Acute upper respiratory infections of unspecified site Suspected COVID-19 virus infection Bronchitis Bronchitis, not specified as acute or chronic [facility]* Diagnosis Nausea Nausea alone [facility] noteNo assessment [facility]The [facility] Work [facility]: [facility]* Diagnosis Acute hip pain, right- Primary [facility]* Diagnosis Pure hypercholesterolemia [facility]* Diagnosis Essential hypertension Unspecified essential hypertension [facility]* Diagnosis Type 2 diabetes mellitus without complication, with long-term current use of insulin (HCC)- Primary [facility]* Diagnosis Paroxysmal atrial fibrillation (HCC)- Primary [...] of insulin (HCC) [facility]* Diagnosis Paroxysmal atrial fibrillation (HCC)- Primary Atrial fibrillation Restrictive lung disease Other diseases of lung, not elsewhere classified Pain of right hip Psoriatic arthritis (HCC) Psoriatic arthropathy [facility]* Diagnosis Viral URI with cough Acute upper respiratory infections of unspecified site Bronchitis Bronchitis, not specified as acute or chronic [facility] Diagnosis Nausea Nausea alone [facility]* Diagnosis SOB (shortness of breath)- Primary Shortness of breath Bilateral leg edema Edema Weight increase Abnormal weight gain [facility] Diagnosis 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 Venous incompetence Unspecified venous (peripheral) insufficiency Bilateral leg edema Edema SOB (shortness of breath) Shortness of breath Weight gain Abnormal weight gain CJ (obstructive sleep apnea) Obstructive sleep apnea (adult) (pediatric) Hypersomnolence Hypersomnia, unspecified Cushingoid facies Other ill-defined conditions [facility]* Diagnosis Venous incompetence- Primary Unspecified venous (peripheral) insufficiency Lymphedema of left leg Other lymphedema Varicose veins of both legs with edema [facility] Diagnosis Abrasion of left hand, initial encounter- Primary [facility]* Diagnosis Encounter for medical assessment- Primary [facility] Diagnosis Essential hypertension Unspecified essential hypertension [facility]* Diagnosis SOB (shortness of breath) Shortness of breath Bilateral leg edema Edema Weight increase Abnormal weight gain [facility]* Diagnosis Generalized weakness- Primary Other malaise and fatigue [facility]* Diagnosis Sinobronchitis Unspecified sinusitis (chronic) [facility]* Diagnosis Viral URI with cough Acute upper respiratory infections of unspecified site Bronchitis Bronchitis, not specified as acute or chronic [facility]* Diagnosis Acute hip pain, right [facility]* Diagnosis Acute left ankle pain documented in this encounter [facility] note* Diagnosis Diarrhea, unspecified type [facility]* Diagnosis Rib pain Chest pain, unspecified documented in this encounter [facility] note* Diagnosis SOB (shortness of breath) Shortness of breath documented in this encounter [facility] note* Diagnosis Essential hypertension- Primary Unspecified essential [...] (HCC) Psoriatic arthropathy documented in this encounter [facility] note* Diagnosis Snoring- Primary Other dyspnea and respiratory abnormality Witnessed episode of apnea Nocturnal leg movements Abnormal involuntary movements Frequent nocturnal awakening Other sleep disturbances Nocturia documented in this encounter [facility] note* Diagnosis Type 2 diabetes mellitus with [...] Other B-complex deficiencies documented in this encounter [facility] note* Diagnosis Nausea Nausea alone documented in this encounter [facility] note* Diagnosis Chronic respiratory failure with hypoxia (HCC)- Primary Chronic respiratory failure documented in this encounter [facility] note* Diagnosis Systolic congestive heart failure, unspecified HF chronicity (HCC) documented in this encounter [facility] note* Diagnosis Systolic congestive heart failure, unspecified HF chronicity (HCC) documented in this encounter [facility] note* Diagnosis Pure hypercholesterolemia documented in this encounter [facility] note* Diagnosis Dizziness- Primary Dizziness and giddiness Chest pain, unspecified type documented in this encounter [facility] note* Diagnosis Type 2 diabetes mellitus without complication, with long-term current use of insulin (HCC) documented in this encounter [facility] note* Diagnosis Type 2 diabetes mellitus with microalbuminuria ([facility])- Primary documented in this encounter [facility] note* Diagnosis Essential hypertension- Primary Unspecified essential hypertension Paroxysmal atrial fibrillation (HCC) Atrial fibrillation Dizziness Dizziness and giddiness Systolic congestive heart failure, unspecified HF chronicity (HCC) documented in this encounter [facility] note* Diagnosis 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 Essential hypertension Unspecified essential hypertension documented in this encounter [facility] note* Diagnosis Essential hypertension Unspecified essential hypertension documented in this encounter [facility] note* Diagnosis 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 Nonobstructive atherosclerosis of coronary artery Pure hypercholesterolemia documented in this encounter [facility] note* Diagnosis Acute diastolic CHF (congestive heart [...] 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) History of bladder cancer Personal history of malignant neoplasm of bladder Chronic anticoagulation Long-term (current) use of anticoagulants Malignant neoplasm of urinary bladder, unspecified site (HCC) 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, macular edema presence unspecified, unspecified retinopathy severity (HCC) Encounter for screening examination for other mental health and behavioral disorders Screening for depression Leukocytosis, unspecified type Essential hypertension Unspecified essential hypertension documented in this encounter [facility] note* Diagnosis 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, macular edema presence unspecified, unspecified retinopathy severity (HCC) documented in this encounter [facility] note* Diagnosis Contusion of left foot, subsequent encounter- Primary Foot pain, left Pain in limb Contusion of left foot, subsequent encounter Foot pain, left Pain in limb documented in this encounter [facility] note* Diagnosis Contusion of left foot, subsequent encounter Foot pain, left Pain in limb documented in this encounter [facility] note* Diagnosis Closed fracture of foot, unspecified laterality, initial encounter- Primary documented in this encounter [facility] note* Diagnosis Closed fracture of foot, unspecified laterality, initial encounter documented in this encounter [facility] note* Diagnosis Closed fracture of foot, unspecified laterality, initial encounter documented in this encounter [facility] note* Diagnosis Essential hypertension- Primary Unspecified essential hypertension Nausea Nausea alone 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 instructions Additional Instructions Please continue all of your home medications as previously directed but keep yourself well-hydrated as your exam and laboratory studies showed elevation to your kidney function consistent with dehydration. If you have any further concerns please return the [facility] Phone: Reason for referral (narrative)* Diagnostic Procedure Only (Urgent) - Closed Specialty Diagnoses / Procedures Referred By Shara t Referred To Contact XR IMAGING Diagnoses Acute left ankle pain Procedures XR ANKLE GENERAL 3V AP/LAT/OBL LEFT RADEX ANKLE COMPLETE MINIMUM 3 VIEWS Denisha Shepard, NEGIN [address] [place] [address] Xr Imaging Referral ID Status Reason Start Date Expiration Date V isits Requested Visits Authorized [id number] Closed Auto-Generate d Referral 02/16/2023 03/17/2024 1 1 [facility] for referral (narrative)* Outpatient Procedure (Routine) - Authorized Specialty Diagnoses / Procedures Referred By Contac t Referred To Contact [facility] [place] Diagnoses Near syncope Fall, initial encounter Procedures ECG COMPLETE ECG ROUTINE ECG W/LEAST 12 LDS W/I&R Vikas Travis PA-C [address] [place] [address] [facility] [place] [facility] [address] [address] Referral ID Status Reason Start Date Expiration Date Visits Requested Visits Authorized [id number] Authorized Auto-Generat ed Referral 05/18/2023 05/17/2024 1 1 [facility] for referral (narrative)* Diagnostic Procedure Only (Routine) - Closed Specialty Diagnoses / Procedures Referred By Contac t Referred To Contact XR IMAGING Diagnoses Acute hip pain, right Procedures XR HIP GENERAL 3V PELV/AP/LAT RIGHT RADEX HIP UNILATERAL WITH PELVIS 2-3 VIEWS Pio Nicole MD [address] [place] [address] [place] [address] Referral ID Status Reason Start Date Expiration Date V isits Requested Visits Authorized [id number] Closed Auto-Generate d Referral 07/23/2023 08/21/2024 1 1 [facility] for referral (narrative)* Outpatient Procedure (Routine) - Pending Review Specialty Diagnoses / Procedures Referred By Contac t Referred To Contact [facility] [place] Diagnoses SOB (shortness of breath) Bilateral leg edema Weight increase Procedures ECG COMPLETE ECG ROUTINE ECG W/LEAST 12 LDS W/I&R Vikas Travis PA-C [address] [place] [address] [facility] [place] [facility] [address] [place] [address] Referral ID Status Reason Start Date Expiration Date Visits Requested Visits Authorized [id number] Pending Review Auto-Generat ed Referral 02/04/2024 02/03/2025 1 1 [facility] for referral (narrative)* Outpatient Procedure (Routine) - Pending Review Specialty Diagnoses / Procedures Referred By Shara t Referred To Contact [facility] [place] Diagnoses Varicose veins of both lower extremities with inflammation Procedures US VENOUS INCOMPETENCY KARON VAS LAB DUP-SCAN XTR VEINS COMPLETE BILATERAL STUDY Vikas Travis PA-C [address] [place] [address] [facility] [address] [place] [address] Referral ID Status Reason Start Date Expiration Date Visits Requested Visits Authorized [id number] Pending Review Auto-Generat ed Referral 02/28/2024 02/27/2025 1 1 * Consult, Test, Treat (Routine) - Authorized Specialty Diagnoses / Procedures Referred By Shara russo Referred To Contact Diagnoses CJ (obstructive sleep apnea) Hypersomnolence Procedures CONSULT TO SLEEP MEDICINE - ADULT OFFICE/OUTPATIENT [facility] 60 MINUTES Vikas Travis PA-C [address] [place] [address] Referral ID Status Reason Start Date Expiration Date Visits Requested Visits Authorized [id number] Authorized PCP Requested Referral 02/28/2024 02/27/2025 1 1 * Outpatient Procedure (Routine) - Authorized Specialty Diagnoses / Procedures Referred By Contac t Referred To Contact [facility] [place] [place] Diagnoses Bilateral leg edema SOB (shortness of breath) Weight gain Procedures ECHO ECHO TTHRC R-T 2D W/WOM-MODE COMPL SPEC&COLR D Vikas Travis PA-C [address] [place] [address] [facility] [address] [place] [address] Referral ID Status Reason Start Date Expiration Date Visits Requested Visits Authorized [id number] Authorized Auto-Generat ed Referral 02/28/2024 02/27/2025 1 1 [facility] for referral (narrative)* Diagnostic Procedure Only (Routine) - Closed Specialty Diagnoses / Procedures Referred By Contac t Referred To Contact XR IMAGING Diagnoses Acute hip pain, right Procedures XR HIP GENERAL 3V PELV/AP/LAT RIGHT RADEX HIP UNILATERAL WITH PELVIS 2-3 VIEWS Pio Nicole MD [address] [place] [address] [place] [address] Referral ID Status Reason Start Date Expiration Date V isits Requested Visits Authorized [id number] Closed Auto-Generate d Referral 07/23/2023 08/21/2024 1 1 [facility] for referral (narrative)* Diagnostic Procedure Only (Urgent) - Closed Specialty Diagnoses / Procedures Referred By Contac t Referred To Contact XR IMAGING Diagnoses Acute left ankle pain Procedures XR ANKLE GENERAL 3V AP/LAT/OBL LEFT RADEX ANKLE COMPLETE MINIMUM 3 VIEWS Denisha Shepard APRN.CNP [address] [place] [address] [place] [address] Referral ID Status Reason Start Date Expiration Date V isits Requested Visits Authorized [id number] Closed Auto-Generate d Referral 02/16/2023 03/17/2024 1 1 [facility] for referral (narrative)* Diagnostic Procedure Only (Routine) - Closed Specialty Diagnoses / Procedures Referred By Contac t Referred To Contact XR IMAGING Diagnoses Rib pain Procedures XR RIBS/CHEST 3V AP RIB/OBLS/CXR RT X-RAY RIBS, CHEST 3+ VW Mathieu Virgen MD [address] [place] [address] [place] [address] Referral ID Status Reason Start Date Expiration Date V isits Requested Visits Authorized [id number] Closed Auto-Generate d Referral 05/25/2021 09/16/2021 99 99 [facility] for referral (narrative)No reason for referral information availableW[facility] Work Phone: Reason for visit Narrative* Diagnostic Procedure Only (Routine) - Closed Specialty Diagnoses / Procedures Referred By Contac t Referred To Contact XR IMAGING Diagnoses Acute hip pain, right Procedures XR HIP GENERAL 3V PELV/AP/LAT RIGHT RADEX HIP UNILATERAL WITH PELVIS 2-3 VIEWS Pio Nicole MD [address] [place] [address] [place] [address] Referral ID Status Reason Start Date Expiration Date V isits Requested Visits Authorized [id number] Closed Auto-Generate d Referral 07/23/2023 08/21/2024 1 1 [facility] for visit Narrative* Diagnostic Procedure Only (Urgent) - Closed Specialty Diagnoses / Procedures Referred By Contac t Referred To Contact XR IMAGING Diagnoses Acute left ankle pain Procedures XR ANKLE GENERAL 3V AP/LAT/OBL LEFT RADEX ANKLE COMPLETE MINIMUM 3 VIEWS Denisha Shepard APRN.CNP [address] [place] [id number] [place] [address] Referral ID Status Reason Start Date Expiration Date V isits Requested Visits Authorized [id number] Closed Auto-Generate d Referral 02/16/2023 03/17/2024 1 1 [facility] for visit Narrative* Diagnostic Procedure Only (Routine) - Closed Specialty Diagnoses / Procedures Referred By Contac t Referred To Contact XR IMAGING Diagnoses Rib pain Procedures XR RIBS/CHEST 3V AP RIB/OBLS/CXR RT X-RAY RIBS, CHEST 3+ VW Mathieu Virgen MD [address] [place] [address] [place] [address] Referral ID Status Reason Start Date Expiration Date V isits Requested Visits Authorized [id number] Closed Auto-Generate d Referral 05/25/2021 09/16/2021 99 99 [facility] for visit Narrative* Diagnostic Procedure Only (Urgent) - Closed Specialty Diagnoses / Procedures Referred By Contac t Referred To Contact XR IMAGING Diagnoses Contusion of left foot, subsequent encounter Foot pain, left Procedures XR FOOT GENERAL 3V AP/LAT/OBL LEFT RADEX FOOT COMPLETE MINIMUM 3 VIEWS Mathieu Virgen MD [address] [place] [address] Phone: tel: fax: [place] [address] Referral ID Status Reason Start Date Expiration Date V isits Requested Visits Authorized [id number] Closed Auto-Generate d Referral 01/12/2025 02/11/2026 [address] [facility] Diagnostic Procedure Only (Routine) - Closed Specialty Diagnoses / Procedures Referred By Contac t Referred To Contact XR IMAGING Diagnoses Closed fracture of foot, unspecified laterality, initial encounter Procedures XR FOOT GENERAL 3V AP/LAT/OBL LEFT RADEX FOOT COMPLETE MINIMUM 3 VIEWS Jamal Mace [address] [place] [address] Phone: tel: fax: [place] [address] Referral ID Status Reason Start Date Expiration Date V isits Requested Visits Authorized [id number] Closed Auto-Generate d Referral 01/22/2025 02/21/2026 1 1 [facility] Advance Directives No Advanced Directives Records FoundDocuments on File Type Date Recorded 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 Advance Directive(s) Advance Directive(s) 03/14/2021 10:51 AM Documents on File Type Date Recorded 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 Advance Directive(s) Advance Directive(s) 03/14/2021 10:51 AM Advance Directive Response Recorded Date/ Time Living Will No October 26 12:42pm Power of Rhinologist Yes October 26, 2021 12:42pm Advance Directive Response Recorded Date/ Time Name of Medical Power of Rhinologist farida harrisr April 08, 2022 4:03pm Living Will Yes April 08, 2022 4:03pm Power of Rhinologist Yes April 08 4:03pm Documents on File Type Date Recorded 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 Advance Directive(s) 03/14/2021 10:51 AM Advance Directive Response Recorded Date/ Time Living Will No November 22nd, 2 022 9:00am Power of Rhinologist No August 08, 2022 9:00am Advance Directive Response Recorded Date/ Time Name of Medical Power of Rhinologist Farida Harrisr November 21, 2022 8:28am Living Will Yes November 21, 2022 8:28am Power of Rhinologist Yes November 21 8:28am Documents on File Type Date Recorded 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 Advance Directive(s) 03/14/2021 10:51 AM Advance Directive Response Recorded Date/ Time Name of Medical Power of Rhinologist Farida Harrisr November 21, 2022 9:28am Name of Medical Power of Rhinologist FÉLIX February 24, 2023 9:59pm Name of Medical Power of Rhinologist Farida Harrisr March 01, 2023 9:06pm Living Will Yes March 01, 2023 9:06pm Power of Rhinologist Yes March 01 9:06pm Advance Directive Response Recorded Date/ Time Name of Medical Power of Rhinologist FÉLIX February 24, 2023 9:59pm Name of Medical Power of Rhinologist Farida Harrisr March 01, 2023 9:06pm Name of Medical Power of Rhinologist Farida Harrisr March 31, 2023 12:26am Living Will Yes March 31, 2023 12:26am Power of Rhinologist Yes March 31 12:26am Advance Directive Response Recorded Date/ Time Living Will Yes March 31, 2023 12:26am Power of Rhinologist Yes March 31 12:26am Name of Medical Power of Rhinologist Farida Harrisr March 31, 2023 12:26am Advance Directive Response Recorded Date/ Time Living Will Yes September 22 10:15am Power of Rhinologist Yes September 22 2 024 10:15am Name of Medical Power of Rhinologist Farida September 22, 2023 10:15am Advance Directive Response Recorded Date/ Time Living Will Yes June 24 1:50am Do you have a Healthcare Pow er of Rhinologist? Yes June 24, 2024 1:50am Living Will No September 20 4:50pm Do you have a Healthcare Pow er of Rhinologist? Yes September 20, 2024 4:50pm Name of Medical Power of Rhinologist FARIDA BECK September 20, 2024 4:50pm Living Will Yes November 03 025 1:12am Do you have a Healthcare Pow er of Rhinologist? Yes November 03, 2024 1:12am Name of Medical Power of Rhinologist daughter November 03, 2024 1:12am Living Will Yes September 01 024 5:43am Do you have a Healthcare Pow er of Rhinologist? Yes September 01, 2024 5:43am Name of Medical Power of Rhinologist vanessa Davalos er September 01, 2024 5:43am Advance Directive Response Recorded Date/ Time Living Will Yes September 22 11:15am Do you have a Healthcare Power of Rhinologist? Yes September 22, 2023 11:15am Living Will Yes November 03 1:12am Do you have a Healthcare Power of Rhinologist? Yes November 03, 2024 1:12am Name of Medical Power of Rhinologist daughter November 03, 2024 1:12am Do you have a Healthcare Power of Rhinologist? Yes January 19, 2025 11:33pm Advance Directive Response Recorded Date/ Time Living Will Yes September 22 11:15am Do you have a Healthcare Power of Rhinologist? Yes September 22, 2023 11:15am Do you have a Healthcare Power of Rhinologist? Yes January 19, 2025 11:33pm Advance Directive Response Recorded Date/ Time Do you have a Healthcare Power of Rhinologist? Yes January 19, 2025 11:33pm Advance Directive Response Recorded Date/ Time Do you have a Healthcare Power of Rhinologist? Yes January 19, 2025 11:33pm Do you have a Healthcare Power of Rhinologist? Yes April 29, 2025 3:41pm Advance Directive Response Recorded Date/ Time Do you have a Healthcare Power of Rhinologist? Yes January 19, 2025 11:33pm Do you have a Healthcare Power of Rhinologist? Yes April 29, 2025 9:43pm Reason for Referral Specialty Diagnoses / Procedures Referred By Shara russo Referred To Contact Orthopedics Diagnoses Strain of calf muscle, right, initial encounter Procedures CONSULT TO ORTHOPAEDICS OFFICE/OUTPATIENT [facility] 60-74 MINUTES Saad Park APRN.PCU RN [address] [place] [address] Referral ID Status Reason Start Date Expiration Date Visits Requested Visits Authorized [id number] Pending Review PCP Requested Referral 01/27/2022 01/27/2023 1 1 Specialty Diagnoses / Procedures Referred By Contac t Referred To Contact [facility] Diagnoses Gastrocnemius tear, right, initial encounter Procedures CONSULT TO PHYSICAL THERAPY PHYSICAL THERAPY EVALUATION HIGH COMPLEX 45 MINS Papito Castano V, DO [address] [place] [address] [facility] [address] [place] [address] Referral ID Status Reason Start Date Expiration Date Visits Requested Visits Authorized [id number] Pending Review Auto-Generat ed Referral 02/03/2022 02/03/2023 1 1 Specialty Diagnoses / Procedures Referred By Shara t Referred To Contact General Surgery Diagnoses Skin mass Procedures CONSULT TO GENERAL SURGERY OFFICE/OUTPATIENT [facility] 60-[place] [address] [place] [address] Referral ID Status Reason Start Date Expiration Date Visits Requested Visits Authorized [id number] Pending Review PCP Requested Referral 01/19/2023 01/19/2024 1 1 Specialty Diagnoses / Procedures Referred By Shara t Referred To Contact Urology Diagnoses Benign prostatic hyperplasia with lower urinary tract symptoms, symptom details unspecified Urinary retention Procedures CONSULT TO UROLOGY Mathieu Virgen MD [address] [place] [address] Referral ID Status Reason Start Date Expiration Date Visits Requested Visits Authorized [id number] Ref Not Required PCP Requested Referral 03/02/2023 03/01/2024 1 1 Specialty Diagnoses / Procedures Referred By Shara t Referred To Contact Ophthalmology Diagnoses Type 2 diabetes mellitus with microalbuminuria, with long-term current use of insulin (HCC) Procedures CONSULT TO OPHTHALMOLOGY OFFICE/OUTPATIENT [facility] 60-[place] [address] [place] [address] Referral ID Status Reason Start Date Expiration Date Visits Requested Visits Authorized [id number] Pending Review PCP Requested Referral 06/06/2023 06/05/2024 1 1 Specialty Diagnoses / Procedures Referred By Contluz maria t Referred To Contact [facility] Diagnoses Venous incompetence Lymphedema of left leg Varicose veins of both legs with edema Procedures CONSULT TO LYMPHEDEMA THERAPY OFFICE/OUTPATIENT [facility] 60 MINUTES Vikas Travis PA-C [address] [place] [address] [facility] [address] [place] [address] Referral ID Status Reason Start Date Expiration Date Visits Requested Visits Authorized [id number] Authorized Auto-Generat ed Referral 03/21/2024 03/21/2025 1 [...] 45pm Ok with MMM: ER for CP 1/05 Ирина 7th, 2025 3:25pm severe disease October 23, 2024 7 :54pm took too much insulin November 03 12:03am CJ November 10, 2024 11:03am Reason for Visit Admit Date Hypokalemia August 13, 2024 12:50pm Essential (primary) hypertension Novembe 2023 12:50pm Nonobstructive atherosclerosis of ford ry [...] Pap compliance January 21, 2025 2:31pm S/P WC 01/20January 26, 2025 9:38a m R06.02 - Shortness of breath January 30, 2 025 9:25am Chief Complaint Admit Date CJ November 10, 2024 11:03am 1 Y FU December 11, 2024 1:0 9pm CHEST PAIN January 19, 2025 10:42p m Pap compliance January 21, 2025 2:31pm S/P WC 01/20January 26, 2025 9:38a m R06.02 - Shortness of breath January 30, 2 025 9:25am R09.02 - Hypoxemia February 26, 2025 1:35 pm R09.02 - Hypoxemia March 02, 2025 10:1 5am Chief Complaint Admit Date 1 Y FU December 11, 2024 1:0 9pm CHEST PAIN January 19, 2025 10:42p m Pap compliance January 21, 2025 2:31pm S/P WC 01/20January 26, 2025 9:38a m R06.02 - Shortness of breath January 30, 2 025 9:25am R06.02 - Shortness of breath January 30, 2 025 9:32am R09.02 - Hypoxemia February 26, 2025 1:35 pm R09.02 - Hypoxemia March 02, 2025 10:1 5am SOB April 01, 2025 3:40 pm Chief Complaint Admit Date 1 Y FU December 11, 2024 1:0 9pm CHEST PAIN January 19, 2025 10:42p m Pap compliance January 21, 2025 2:31pm S/P WC 01/20January 26, 2025 9:38a m R06.02 - Shortness of breath January 30, 2 025 9:25am R06.02 - Shortness of breath January 30, 2 025 9:32am R09.02 - Hypoxemia February 26, [...] Shortness of breath January 30, 2 025 9:32am R09.02 - Hypoxemia February 26, [...] M FU April 08, 2025 9:06 am SYNCOPE April 29, 2025 7: 37pm Reason for Visit Admit Date History of [...] Shortness of breath on exertion March 9:06am Elevated troponin April 29, 2025 7: 37pm History of CAD (coronary artery disease) April 29, 2025 7:37pm Medical non-compliance April 29, 2025 7:37pm Syncope April 29, 2025 7: 37pm Paroxysmal atrial fibrillation April 292024 7:37pm Chief Complaint Admit Date CHEST PAIN January 19, 2025 10:42p m Pap compliance January 21, 2025 2:31pm S/P [facility] 01/20January 26, 2025 9:38a m R06.02 - Shortness of breath January 30, 2 025 9:25am R06.02 - Shortness of breath January 30, 025 9:32am R09.02 - Hypoxemia February 26, 2025 1:35 pm R09.02 - Hypoxemia March 02, 2025 10:1 5am SOB April 01, 2025 3:40 pm 3 M FU April 08, 2025 9:06 am SYNCOPE April 29, 2025 7: 37pm Syncope April 30, 2025 10 :34am Chief Complaint Admit Date CHEST PAIN January 19, 2025 10:42p m Pap compliance January 21, 2025 2:31pm S/P [facility] 01/20January 26, 2025 9:38a m R06.02 - Shortness of breath January 30, 2 025 9:25am R06.02 - Shortness of breath January 30, 2 025 9:32am R09.02 - Hypoxemia February 26, 2025 1:35 pm R09.02 - Hypoxemia March 02, 2025 10:1 5am SOB April 01, 2025 3:40 pm 3 M FU April 08, 2025 9:06 am SYNCOPE April 29, 2025 7: 37pm Syncope April 30, 2025 10 :34am S/P [facility] 04/30May 04, 2025 9: 43am Family History No Family History Records Found [...] this informatio n is protected by the [facility] Confidentiality of Alcohol and Drug Abuse Patient Records regulations: The Federal rules restrict any use of the information to criminally investigate or prosecute any alcohol or drug abuse patient.[facility] HealthIn the event this information is protected by the Federal Confidentiality of Alcohol and Drug Abuse Patient Records regulations: The Federal rules restrict any use of the information to criminally investigate or prosecute any alcohol or drug abuse patient.[facility] HealthIn the event this information is protected by the Federal Confidentiality of Alcohol and Drug Abuse Patient Records regulations: The Federal rules restrict any use of the information to criminally investigate or prosecute any alcohol or drug abuse patient.[facility] HealthIn the event this information is protected by the Federal Confidentiality of Alcohol and Drug Abuse Patient Records regulations: The Federal rules restrict any use of the information to criminally investigate or prosecute any alcohol or drug abuse patient.[facility] HealthIn the event this information is protected by the Federal Confidentiality of Alcohol and Drug Abuse Patient Records regulations: The Federal rules restrict any use of the information to criminally investigate or prosecute any alcohol or drug abuse patient.[facility] HealthIn the event this information is protected by the Federal Confidentiality of Alcohol and Drug Abuse Patient Records regulations: The Federal rules restrict any use of the information to criminally investigate or prosecute any alcohol or drug abuse patient.[facility] HealthIn the event this information is protected by the Federal Confidentiality of Alcohol and Drug Abuse Patient Records regulations: The Federal rules restrict any use of the information to criminally investigate or prosecute any alcohol or drug abuse patient.[facility] HealthIn the event this information is protected by the Federal Confidentiality of Alcohol and Drug Abuse Patient Records regulations: The Federal rules restrict any use of the information to criminally investigate or prosecute any alcohol or drug abuse patient.[facility]In the event this information is protected by the Federal Confidentiality of Alcohol and Drug Abuse Patient Records regulations: The Federal rules restrict any use of the information to criminally investigate or prosecute any alcohol or drug abuse patient.[facility]In the event this information is protected by the Federal Confidentiality of Alcohol and Drug Abuse Patient Records regulations: The Federal rules restrict any use of the information to criminally investigate or prosecute any alcohol or drug abuse patient.[facility]In the event this information is protected by the Federal Confidentiality of Alcohol and Drug Abuse Patient Records regulations: The Federal rules restrict any use of the information to criminally investigate or prosecute any alcohol or drug abuse patient.[facility]In the event this information is protected by the Federal Confidentiality of Alcohol and Drug Abuse Patient Records regulations: The Federal rules restrict any use of the information to criminally investigate or prosecute any alcohol or drug abuse patient.[facility]In the event this information is protected by the Federal Confidentiality of Alcohol and Drug Abuse Patient Records regulations: The Federal rules restrict any use of the information to criminally investigate or prosecute any alcohol or drug abuse patient.[facility]In the event this information is protected by the Federal Confidentiality of Alcohol and Drug Abuse Patient Records regulations: The Federal rules restrict any use of the information to criminally investigate or prosecute any alcohol or drug abuse patient.[facility]In the event this information is protected by the Federal Confidentiality of Alcohol and Drug Abuse Patient Records regulations: The Federal rules restrict any use of the information to criminally investigate or prosecute any alcohol or drug abuse patient.[facility]In the event this information is protected by the Federal Confidentiality of Alcohol and Drug Abuse Patient Records regulations: The Federal rules restrict any use of the information to criminally investigate or prosecute any alcohol or drug abuse patient.[facility]In the event this information is protected by the Federal Confidentiality of Alcohol and Drug Abuse Patient Records regulations: The Federal rules restrict any use of the information to criminally investigate or prosecute any alcohol or drug abuse patient.[facility]In the event this information is protected by the Federal Confidentiality of Alcohol and Drug Abuse Patient Records regulations: The Federal rules restrict any use of the information to criminally investigate or prosecute any alcohol or drug abuse patient.[facility]In the event this information is protected by the Federal Confidentiality of Alcohol and Drug Abuse Patient Records regulations: The Federal rules restrict any use of the information to criminally investigate or prosecute any alcohol or drug abuse patient.[facility]In the event this information is protected by the Federal Confidentiality of Alcohol and Drug Abuse Patient Records regulations: The Federal rules restrict any use of the information to criminally investigate or prosecute any alcohol or drug abuse patient.[facility]In the event this information is protected by the Federal Confidentiality of Alcohol and Drug Abuse Patient Records regulations: The Federal rules restrict any use of the information to criminally investigate or prosecute any alcohol or drug abuse patient.[facility]In the event this information is protected by the Federal Confidentiality of Alcohol and Drug Abuse Patient Records regulations: The Federal rules restrict any use of the information to criminally investigate or prosecute any alcohol or drug abuse patient.[facility]In the event this information is protected by the Federal Confidentiality of Alcohol and Drug Abuse Patient Records regulations: The Federal rules restrict any use of the information to criminally investigate or prosecute any alcohol or drug abuse patient.[facility]In the event this information is protected by the Federal Confidentiality of Alcohol and Drug Abuse Patient Records regulations: The Federal rules restrict any use of the information to criminally investigate or prosecute any alcohol or drug abuse patient.[facility]In the event this information is protected by the Federal Confidentiality of Alcohol and Drug Abuse Patient Records regulations: The Federal rules restrict any use of the information to criminally investigate or prosecute any alcohol or drug abuse patient.[facility]In the event this information is protected by the Federal Confidentiality of Alcohol and Drug Abuse Patient Records regulations: The Federal rules restrict any use of the information to criminally investigate or prosecute any alcohol or drug abuse patient.[facility]In the event this information is protected by the Federal Confidentiality of Alcohol and Drug Abuse Patient Records regulations: The Federal rules restrict any use of the information to criminally investigate or prosecute any alcohol or drug abuse patient.[facility]In the event this information is protected by the Federal Confidentiality of Alcohol and Drug Abuse Patient Records regulations: The Federal rules restrict any use of the information to criminally investigate or prosecute any alcohol or drug abuse patient.[facility]In the event this information is protected by the Federal Confidentiality of Alcohol and Drug Abuse Patient Records regulations: The Federal rules restrict any use of the information to criminally investigate or prosecute any alcohol or drug abuse patient.[facility]In the event this information is protected by the Federal Confidentiality of Alcohol and Drug Abuse Patient Records regulations: The Federal rules restrict any use of the information to criminally investigate or prosecute any alcohol or drug abuse patient.[facility]In the event this information is protected by the Federal Confidentiality of Alcohol and Drug Abuse Patient Records regulations: The Federal rules restrict any use of the information to criminally investigate or prosecute any alcohol or drug abuse patient.[facility]In the event this information is protected by the Federal Confidentiality of Alcohol and Drug Abuse Patient Records regulations: The Federal rules restrict any use of the information to criminally investigate or prosecute any alcohol or drug abuse patient.[facility]In the event this information is protected by the Federal Confidentiality of Alcohol and Drug Abuse Patient Records regulations: The Federal rules restrict any use of the information to criminally investigate or prosecute any alcohol or drug abuse patient.[facility]In the event this information is protected by the Federal Confidentiality of Alcohol and Drug Abuse Patient Records regulations: The Federal rules restrict any use of the information to criminally investigate or prosecute any alcohol or drug abuse patient.[facility]In the event this information is protected by the Federal Confidentiality of Alcohol and Drug Abuse Patient Records regulations: The Federal rules restrict any use of the information to criminally investigate or prosecute any alcohol or drug abuse patient.[facility]In the event this information is protected by the Federal Confidentiality of Alcohol and Drug Abuse Patient Records regulations: The Federal rules restrict any use of the information to criminally investigate or prosecute any alcohol or drug abuse patient.[facility]In the event this information is protected by the Federal Confidentiality of Alcohol and Drug Abuse Patient Records regulations: The Federal rules restrict any use of the information to criminally investigate or prosecute any alcohol or drug abuse patient.[facility]In the event this information is protected by the Federal Confidentiality of Alcohol and Drug Abuse Patient Records regulations: The Federal rules restrict any use of the information to criminally investigate or prosecute any alcohol or drug abuse patient.[facility]In the event this information is protected by the Federal Confidentiality of Alcohol and Drug Abuse Patient Records regulations: The Federal rules restrict any use of the information to criminally investigate or prosecute any alcohol or drug abuse patient.[facility]In the event this information is protected by the Federal Confidentiality of Alcohol and Drug Abuse Patient Records regulations: The Federal rules restrict any use of the information to criminally investigate or prosecute any alcohol or drug abuse patient.[facility]In the event this information is protected by the Federal Confidentiality of Alcohol and Drug Abuse Patient Records regulations: The Federal rules restrict any use of the information to criminally investigate or prosecute any alcohol or drug abuse patient.[facility]In the event this information is protected by the Federal Confidentiality of Alcohol and Drug Abuse Patient Records regulations: The Federal rules restrict any use of the information to criminally investigate or prosecute any alcohol or drug abuse patient.[facility]In the event this information is protected by the Federal Confidentiality of Alcohol and Drug Abuse Patient Records regulations: The Federal rules restrict any use of the information to criminally investigate or prosecute any alcohol or drug abuse patient.[facility]In the event this information is protected by the Federal Confidentiality of Alcohol and Drug Abuse Patient Records regulations: The Federal rules restrict any use of the information to criminally investigate or prosecute any alcohol or drug abuse patient.[facility]In the event this information is protected by the Federal Confidentiality of Alcohol and Drug Abuse Patient Records regulations: The Federal rules restrict any use of the information to criminally investigate or prosecute any alcohol or drug abuse patient.[facility]In the event this information is protected by the Federal Confidentiality of Alcohol and Drug Abuse Patient Records regulations: The Federal rules restrict any use of the information to criminally investigate or prosecute any alcohol or drug abuse patient.[facility]In the event this information is protected by the Federal Confidentiality of Alcohol and Drug Abuse Patient Records regulations: The Federal rules restrict any use of the information to criminally investigate or prosecute any alcohol or drug abuse patient.[facility]In the event this information is protected by the Federal Confidentiality of Alcohol and Drug Abuse Patient Records regulations: The Federal rules restrict any use of the information to criminally investigate or prosecute any alcohol or drug abuse patient.[facility]In the event this information is protected by the Federal Confidentiality of Alcohol and Drug Abuse Patient Records regulations: The Federal rules restrict any use of the information to criminally investigate or prosecute any alcohol or drug abuse patient.[facility]In the event this information is protected by the Federal Confidentiality of Alcohol and Drug Abuse Patient Records regulations: The Federal rules restrict any use of the information to criminally investigate or prosecute any alcohol or drug abuse patient.[facility]In the event this information is protected by the Federal Confidentiality of Alcohol and Drug Abuse Patient Records regulations: The Federal rules restrict any use of the information to criminally investigate or prosecute any alcohol or drug abuse patient.[facility]In the event this information is protected by the Federal Confidentiality of Alcohol and Drug Abuse Patient Records regulations: The Federal rules restrict any use of the information to criminally investigate or prosecute any alcohol or drug abuse patient.[facility]In the event this information is protected by the Federal Confidentiality of Alcohol and Drug Abuse Patient Records regulations: The Federal rules restrict any use of the information to criminally investigate or prosecute any alcohol or drug abuse patient.[facility]In the event this information is protected by the Federal Confidentiality of Alcohol and Drug Abuse Patient Records regulations: The Federal rules restrict any use of the information to criminally investigate or prosecute any alcohol or drug abuse patient.[facility]In the event this information is protected by the Federal Confidentiality of Alcohol and Drug Abuse Patient Records regulations: The Federal rules restrict any use of the information to criminally investigate or prosecute any alcohol or drug abuse patient.[facility]In the event this information is protected by the Federal Confidentiality of Alcohol and Drug Abuse Patient Records regulations: The Federal rules restrict any use of the information to criminally investigate or prosecute any alcohol or drug abuse patient.[facility]In the event this information is protected by the Federal Confidentiality of Alcohol and Drug Abuse Patient Records regulations: The Federal rules restrict any use of the information to criminally investigate or prosecute any alcohol or drug abuse patient.[facility]In the event this information is protected by the Federal Confidentiality of Alcohol and Drug Abuse Patient Records regulations: The Federal rules restrict any use of the information to criminally investigate or prosecute any alcohol or drug abuse patient.[facility]In the event this information is protected by the Federal Confidentiality of Alcohol and Drug Abuse Patient Records regulations: The Federal rules restrict any use of the information to criminally investigate or prosecute any alcohol or drug abuse patient.[facility]In the event this information is protected by the Federal Confidentiality of Alcohol and Drug Abuse Patient Records regulations: The Federal rules restrict any use of the information to criminally investigate or prosecute any alcohol or drug abuse patient.[facility]In the event this information is protected by the Federal Confidentiality of Alcohol and Drug Abuse Patient Records regulations: The Federal rules restrict any use of the information to criminally investigate or prosecute any alcohol or drug abuse patient.[facility]In the event this information is protected by the Federal Confidentiality of Alcohol and Drug Abuse Patient Records regulations: The Federal rules restrict any use of the information to criminally investigate or prosecute any alcohol or drug abuse patient.[facility]In the event this information is protected by the Federal Confidentiality of Alcohol and Drug Abuse Patient Records regulations: The Federal rules restrict any use of the information to criminally investigate or prosecute any alcohol or drug abuse patient.[facility]In the event this information is protected by the Federal Confidentiality of Alcohol and Drug Abuse Patient Records regulations: The Federal rules restrict any use of the information to criminally investigate or prosecute any alcohol or drug abuse patient.[facility]In the event this information is protected by the Federal Confidentiality of Alcohol and Drug Abuse Patient Records regulations: The Federal rules restrict any use of the information to criminally investigate or prosecute any alcohol or drug abuse patient.[facility]In the event this information is protected by the Federal Confidentiality of Alcohol and Drug Abuse Patient Records regulations: The Federal rules restrict any use of the information to criminally investigate or prosecute any alcohol or drug abuse patient.[facility]In the event this information is protected by the Federal Confidentiality of Alcohol and Drug Abuse Patient Records regulations: The Federal rules restrict any use of the information to criminally investigate or prosecute any alcohol or drug abuse patient.[facility]In the event this information is protected by the Federal Confidentiality of Alcohol and Drug Abuse Patient Records regulations: The Federal rules restrict any use of the information to criminally investigate or prosecute any alcohol or drug abuse patient.[facility]In the event this information is protected by the Federal Confidentiality of Alcohol and Drug Abuse Patient Records regulations: The Federal rules restrict any use of the information to criminally investigate or prosecute any alcohol or drug abuse patient.[facility]In the event this information is protected by the Federal Confidentiality of Alcohol and Drug Abuse Patient Records regulations: The Federal rules restrict any use of the information to criminally investigate or prosecute any alcohol or drug abuse patient.[facility]In the event this information is protected by the Federal Confidentiality of Alcohol and Drug Abuse Patient Records regulations: The Federal rules restrict any use of the information to criminally investigate or prosecute any alcohol or drug abuse patient.[facility]In the event this information is protected by the Federal Confidentiality of Alcohol and Drug Abuse Patient Records regulations: The Federal rules restrict any use of the information to criminally investigate or prosecute any alcohol or drug abuse patient.[facility]In the event this information is protected by the Federal Confidentiality of Alcohol and Drug Abuse Patient Records regulations: The Federal rules restrict any use of the information to criminally investigate or prosecute any alcohol or drug abuse patient.[facility]In the event this information is protected by the Federal Confidentiality of Alcohol and Drug Abuse Patient Records regulations: The Federal rules restrict any use of the information to criminally investigate or prosecute any alcohol or drug abuse patient.[facility]In the event this information is protected by the Federal Confidentiality of Alcohol and Drug Abuse Patient Records regulations: The Federal rules restrict any use of the information to criminally investigate or prosecute any alcohol or drug abuse patient.[facility]In the event this information is protected by the Federal Confidentiality of Alcohol and Drug Abuse Patient Records regulations: The Federal rules restrict any use of the information to criminally investigate or prosecute any alcohol or drug abuse patient.[facility]In the event this information is protected by the Federal Confidentiality of Alcohol and Drug Abuse Patient Records regulations: The Federal rules restrict any use of the information to criminally investigate or prosecute any alcohol or drug abuse patient.[facility]In the event this information is protected by the Federal Confidentiality of Alcohol and Drug Abuse Patient Records regulations: The Federal rules restrict any use of the information to criminally investigate or prosecute any alcohol or drug abuse patient.[facility]In the event this information is protected by the Federal Confidentiality of Alcohol and Drug Abuse Patient Records regulations: The Federal rules restrict any use of the information to criminally investigate or prosecute any alcohol or drug abuse patient.[facility]In the event this information is protected by the Federal Confidentiality of Alcohol and Drug Abuse Patient Records regulations: The Federal rules restrict any use of the information to criminally investigate or prosecute any alcohol or drug abuse patient.[facility]In the event this information is protected by the Federal Confidentiality of Alcohol and Drug Abuse Patient Records regulations: The Federal rules restrict any use of the information to criminally investigate or prosecute any alcohol or drug abuse patient.[facility]In the event this information is protected by the Federal Confidentiality of Alcohol and Drug Abuse Patient Records regulations: The Federal rules restrict any use of the information to criminally investigate or prosecute any alcohol or drug abuse patient.[facility]In the event this information is protected by the Federal Confidentiality of Alcohol and Drug Abuse Patient Records regulations: The Federal rules restrict any use of the information to criminally investigate or prosecute any alcohol or drug abuse patient.[facility]In the event this information is protected by the Federal Confidentiality of Alcohol and Drug Abuse Patient Records regulations: The Federal rules restrict any use of the information to criminally investigate or prosecute any alcohol or drug abuse patient.[facility]In the event this information is protected by the Federal Confidentiality of Alcohol and Drug Abuse Patient Records regulations: The Federal rules restrict any use of the information to criminally investigate or prosecute any alcohol or drug abuse patient.[facility]In the event this information is protected by the Federal Confidentiality of Alcohol and Drug Abuse Patient Records regulations: The Federal rules restrict any use of the information to criminally investigate or prosecute any alcohol or drug abuse patient.[facility]In the event this information is protected by the Federal Confidentiality of Alcohol and Drug Abuse Patient Records regulations: The Federal rules restrict any use of the information to criminally investigate or prosecute any alcohol or drug abuse patient.[facility]In the event this information is protected by the Federal Confidentiality of Alcohol and Drug Abuse Patient Records regulations: The Federal rules restrict any use of the information to criminally investigate or prosecute any alcohol or drug abuse patient.[facility]In the event this information is protected by the Federal Confidentiality of Alcohol and Drug Abuse Patient Records regulations: The Federal rules restrict any use of the information to criminally investigate or prosecute any alcohol or drug abuse patient.[facility]In the event this information is protected by the Federal Confidentiality of Alcohol and Drug Abuse Patient Records regulations: The Federal rules restrict any use of the information to criminally investigate or prosecute any alcohol or drug abuse patient.[facility]In the event this information is protected by the Federal Confidentiality of Alcohol and Drug Abuse Patient Records regulations: The Federal rules restrict any use of the information to criminally investigate or prosecute any alcohol or drug abuse patient.[facility]In the event this information is protected by the Federal Confidentiality of Alcohol and Drug Abuse Patient Records regulations: The Federal rules restrict any use of the information to criminally investigate or prosecute any alcohol or drug abuse patient.[facility] HealthIn the event this information is protected by the Federal Confidentiality of Alcohol and Drug Abuse Patient Records regulations: The Federal rules restrict any use of the information to criminally investigate or prosecute any alcohol or drug abuse patient.[facility] HealthIn the event this information is protected by the Federal Confidentiality of Alcohol and Drug Abuse Patient Records regulations: The Federal rules restrict any use of the information to criminally investigate or prosecute any alcohol or drug abuse patient.[facility] HealthIn the event this information is protected by the Federal Confidentiality of Alcohol and Drug Abuse Patient Records regulations: The Federal rules restrict any use of the information to criminally investigate or prosecute any alcohol or drug abuse patient.[facility] HealthIn the event this information is protected by the Federal Confidentiality of Alcohol and Drug Abuse Patient Records regulations: The Federal rules restrict any use of the information to criminally investigate or prosecute any alcohol or drug abuse patient.[facility] HealthIn the event this information is protected by the Federal Confidentiality of Alcohol and Drug Abuse Patient Records regulations: The Federal rules restrict any use of the information to criminally investigate or prosecute any alcohol or drug abuse patient.[facility] HealthIn the event this information is protected by the Federal Confidentiality of Alcohol and Drug Abuse Patient Records regulations: The Federal rules restrict any use of the information to criminally investigate or prosecute any alcohol or drug abuse patient.[facility] HealthIn the event this information is protected by the Federal Confidentiality of Alcohol and Drug Abuse Patient Records regulations: The Federal rules restrict any use of the information to criminally investigate or prosecute any alcohol or drug abuse patient.[facility] HealthIn the event this information is protected by the Federal Confidentiality of Alcohol and Drug Abuse Patient Records regulations: The Federal rules restrict any use of the information to criminally investigate or prosecute any alcohol or drug abuse patient.[facility] HealthIn the event this information is protected by the Federal Confidentiality of Alcohol and Drug Abuse Patient Records regulations: The Federal rules restrict any use of the information to criminally investigate or prosecute any alcohol or drug abuse patient.[facility] HealthIn the event this information is protected by the Federal Confidentiality of Alcohol and Drug Abuse Patient Records regulations: The Federal rules restrict any use of the information to criminally investigate or prosecute any alcohol or drug abuse patient.[facility] HealthIn the event this information is protected by the Federal Confidentiality of Alcohol and Drug Abuse Patient Records regulations: The Federal rules restrict any use of the information to criminally investigate or prosecute any alcohol or drug abuse patient.[facility] HealthIn the event this information is protected by the Federal Confidentiality of Alcohol and Drug Abuse Patient Records regulations: The Federal rules restrict any use of the information to criminally investigate or prosecute any alcohol or drug abuse patient.[facility] HealthIn the event this information is protected by the Federal Confidentiality of Alcohol and Drug Abuse Patient Records regulations: The Federal rules restrict any use of the information to criminally investigate or prosecute any alcohol or drug abuse patient.[facility] HealthIn the event this information is protected by the Federal Confidentiality of Alcohol and Drug Abuse Patient Records regulations: The Federal rules restrict any use of the information to criminally investigate or prosecute any alcohol or drug abuse patient.[facility] HealthIn the event this information is protected by the Federal Confidentiality of Alcohol and Drug Abuse Patient Records regulations: The Federal rules restrict any use of the information to criminally investigate or prosecute any alcohol or drug abuse patient.[facility] HealthIn the event this information is protected by the Federal Confidentiality of Alcohol and Drug Abuse Patient Records regulations: The Federal rules restrict any use of the information to criminally investigate or prosecute any alcohol or drug abuse patient.[facility] HealthIn the event this information is protected by the Federal Confidentiality of Alcohol and Drug Abuse Patient Records regulations: The Federal rules restrict any use of the information to criminally investigate or prosecute any alcohol or drug abuse patient.[facility] HealthIn the event this information is protected by the Federal Confidentiality of Alcohol and Drug Abuse Patient Records regulations: The Federal rules restrict any use of the information to criminally investigate or prosecute any alcohol or drug abuse patient.[facility] HealthIn the event this information is protected by the Federal Confidentiality of Alcohol and Drug Abuse Patient Records regulations: The Federal rules restrict any use of the information to criminally investigate or prosecute any alcohol or drug abuse patient.[facility] HealthIn the event this information is protected by the Federal Confidentiality of Alcohol and Drug Abuse Patient Records regulations: The Federal rules restrict any use of the information to criminally investigate or prosecute any alcohol or drug abuse patient.[facility] HealthIn the event this information is protected by the Federal Confidentiality of Alcohol and Drug Abuse Patient Records regulations: The Federal rules restrict any use of the information to criminally investigate or prosecute any alcohol or drug abuse patient.[facility] HealthIn the event this information is protected by the Federal Confidentiality of Alcohol and Drug Abuse Patient Records regulations: The Federal rules restrict any use of the information to criminally investigate or prosecute any alcohol or drug abuse patient.[facility] HealthIn the event this information is protected by the Federal Confidentiality of Alcohol and Drug Abuse Patient Records regulations: The Federal rules restrict any use of the information to criminally investigate or prosecute any alcohol or drug abuse patient.[facility] HealthIn the event this information is protected by the Federal Confidentiality of Alcohol and Drug Abuse Patient Records regulations: The Federal rules restrict any use of the information to criminally investigate or prosecute any alcohol or drug abuse patient.[facility] HealthIn the event this information is protected by the Federal Confidentiality of Alcohol and Drug Abuse Patient Records regulations: The Federal rules restrict any use of the information to criminally investigate or prosecute any alcohol or drug abuse patient.[facility] HealthIn the event this information is protected by the Federal Confidentiality of Alcohol and Drug Abuse Patient Records regulations: The Federal rules restrict any use of the information to criminally investigate or prosecute any alcohol or drug abuse patient.[facility] HealthIn the event this information is protected by the Federal Confidentiality of Alcohol and Drug Abuse Patient Records regulations: The Federal rules restrict any use of the information to criminally investigate or prosecute any alcohol or drug abuse patient.[facility] HealthIn the event this information is protected by the Federal Confidentiality of Alcohol and Drug Abuse Patient Records regulations: The Federal rules restrict any use of the information to criminally investigate or prosecute any alcohol or drug abuse patient.[facility] HealthIn the event this information is protected by the Federal Confidentiality of Alcohol and Drug Abuse Patient Records regulations: The Federal rules restrict any use of the information to criminally investigate or prosecute any alcohol or drug abuse patient.[facility] HealthIn the event this information is protected by the Federal Confidentiality of Alcohol and Drug Abuse Patient Records regulations: The Federal rules restrict any use of the information to criminally investigate or prosecute any alcohol or drug abuse patient.[facility] HealthIn the event this information is protected by the Federal Confidentiality of Alcohol and Drug Abuse Patient Records regulations: The Federal rules restrict any use of the information to criminally investigate or prosecute any alcohol or drug abuse patient.[facility] HealthIn the event this information is protected by the Federal Confidentiality of Alcohol and Drug Abuse Patient Records regulations: The Federal rules restrict any use of the information to criminally investigate or prosecute any alcohol or drug abuse patient.[facility] HealthIn the event this information is protected by the Federal Confidentiality of Alcohol and Drug Abuse Patient Records regulations: The Federal rules restrict any use of the information to criminally investigate or prosecute any alcohol or drug abuse patient.[facility] HealthIn the event this information is protected by the Federal Confidentiality of Alcohol and Drug Abuse Patient Records regulations: The Federal rules restrict any use of the information to criminally investigate or prosecute any alcohol or drug abuse patient.[facility] HealthIn the event this information is protected by the Federal Confidentiality of Alcohol and Drug Abuse Patient Records regulations: The Federal rules restrict any use of the information to criminally investigate or prosecute any alcohol or drug abuse patient.[facility] HealthIn the event this information is protected by the Federal Confidentiality of Alcohol and Drug Abuse Patient Records regulations: The Federal rules restrict any use of the information to criminally investigate or prosecute any alcohol or drug abuse patient.[facility] HealthIn the event this information is protected by the Federal Confidentiality of Alcohol and Drug Abuse Patient Records regulations: The Federal rules restrict any use of the information to criminally investigate or prosecute any alcohol or drug abuse patient.[facility] HealthIn the event this information is protected by the Federal Confidentiality of Alcohol and Drug Abuse Patient Records regulations: The Federal rules restrict any use of the information to criminally investigate or prosecute any alcohol or drug abuse patient.[facility] HealthIn the event this information is protected by the Federal Confidentiality of Alcohol and Drug Abuse Patient Records regulations: The Federal rules restrict any use of the information to criminally investigate or prosecute any alcohol or drug abuse patient.[facility] HealthIn the event this information is protected by the Federal Confidentiality of Alcohol and Drug Abuse Patient Records regulations: The Federal rules restrict any use of the information to criminally investigate or prosecute any alcohol or drug abuse patient.[facility] HealthIn the event this information is protected by the Federal Confidentiality of Alcohol and Drug Abuse Patient Records regulations: The Federal rules restrict any use of the information to criminally investigate or prosecute any alcohol or drug abuse patient.[facility] HealthIn the event this information is protected by the Federal Confidentiality of Alcohol and Drug Abuse Patient Records regulations: The Federal rules restrict any use of the information to criminally investigate or prosecute any alcohol or drug abuse patient.[facility] HealthIn the event this information is protected by the Federal Confidentiality of Alcohol and Drug Abuse Patient Records regulations: The Federal rules restrict any use of the information to criminally investigate or prosecute any alcohol or drug abuse patient.[facility] HealthIn the event this information is protected by the Federal Confidentiality of Alcohol and Drug Abuse Patient Records regulations: The Federal rules restrict any use of the information to criminally investigate or prosecute any alcohol or drug abuse patient.[facility] HealthIn the event this information is protected by the Federal Confidentiality of Alcohol and Drug Abuse Patient Records regulations: The Federal rules restrict any use of the information to criminally investigate or prosecute any alcohol or drug abuse patient.[facility] HealthIn the event this information is protected by the Federal Confidentiality of Alcohol and Drug Abuse Patient Records regulations: The Federal rules restrict any use of the information to criminally investigate or prosecute any alcohol or drug abuse patient.[facility] HealthIn the event this information is protected by the Federal Confidentiality of Alcohol and Drug Abuse Patient Records regulations: The Federal rules restrict any use of the information to criminally investigate or prosecute any alcohol or drug abuse patient.[facility] HealthIn the event this information is protected by the Federal Confidentiality of Alcohol and Drug Abuse Patient Records regulations: The Federal rules restrict any use of the information to criminally investigate or prosecute any alcohol or drug abuse patient.[facility] HealthIn the event this information is protected by the Federal Confidentiality of Alcohol and Drug Abuse Patient Records regulations: The Federal rules restrict any use of the information to criminally investigate or prosecute any alcohol or drug abuse patient.[facility] HealthIn the event this information is protected by the Federal Confidentiality of Alcohol and Drug Abuse Patient Records regulations: The Federal rules restrict any use of the information to criminally investigate or prosecute any alcohol or drug abuse patient.[facility] HealthIn the event this information is protected by the Federal Confidentiality of Alcohol and Drug Abuse Patient Records regulations: The Federal rules restrict any use of the information to criminally investigate or prosecute any alcohol or drug abuse patient.[facility] HealthIn the event this information is protected by the Federal Confidentiality of Alcohol and Drug Abuse Patient Records regulations: The Federal rules restrict any use of the information to criminally investigate or prosecute any alcohol or drug abuse patient.[facility] HealthIn the event this information is protected by the Federal Confidentiality of Alcohol and Drug Abuse Patient Records regulations: The Federal rules restrict any use of the information to criminally investigate or prosecute any alcohol or drug abuse patient.[facility] HealthIn the event this information is protected by the Federal Confidentiality of Alcohol and Drug Abuse Patient Records regulations: The Federal rules restrict any use of the information to criminally investigate or prosecute any alcohol or drug abuse patient.[facility] HealthIn the event this information is protected by the Federal Confidentiality of Alcohol and Drug Abuse Patient Records regulations: The Federal rules restrict any use of the information to criminally investigate or prosecute any alcohol or drug abuse patient.[facility] HealthIn the event this information is protected by the Federal Confidentiality of Alcohol and Drug Abuse Patient Records regulations: The Federal rules restrict any use of the information to criminally investigate or prosecute any alcohol or drug abuse patient.[facility] HealthIn the event this information is protected by the Federal Confidentiality of Alcohol and Drug Abuse Patient Records regulations: The Federal rules restrict any use of the information to criminally investigate or prosecute any alcohol or drug abuse patient.[facility] HealthIn the event this information is protected by the Federal Confidentiality of Alcohol and Drug Abuse Patient Records regulations: The Federal rules restrict any use of the information to criminally investigate or prosecute any alcohol or drug abuse patient.[facility] HealthIn the event this information is protected by the Federal Confidentiality of Alcohol and Drug Abuse Patient Records regulations: The Federal rules restrict any use of the information to criminally investigate or prosecute any alcohol or drug abuse patient.[facility] HealthIn the event this information is protected by the Federal Confidentiality of Alcohol and Drug Abuse Patient Records regulations: The Federal rules restrict any use of the information to criminally investigate or prosecute any alcohol or drug abuse patient.[facility] HealthIn the event this information is protected by the Federal Confidentiality of Alcohol and Drug Abuse Patient Records regulations: The Federal rules restrict any use of the information to criminally investigate or prosecute any alcohol or drug abuse patient.[facility] HealthIn the event this information is protected by the Federal Confidentiality of Alcohol and Drug Abuse Patient Records regulations: The Federal rules restrict any use of the information to criminally investigate or prosecute any alcohol or drug abuse patient.[facility] HealthIn the event this information is protected by the Federal Confidentiality of Alcohol and Drug Abuse Patient Records regulations: The Federal rules restrict any use of the information to criminally investigate or prosecute any alcohol or drug abuse patient.[facility] HealthIn the event this information is protected by the Federal Confidentiality of Alcohol and Drug Abuse Patient Records regulations: The Federal rules restrict any use of the information to criminally investigate or prosecute any alcohol or drug abuse patient.[facility] HealthIn the event this information is protected by the Federal Confidentiality of Alcohol and Drug Abuse Patient Records regulations: The Federal rules restrict any use of the information to criminally investigate or prosecute any alcohol or drug abuse patient.[facility] Reason for Visit (unrecogniz ed section and content) Reason Onset Date Comments Refill Request 12/12/2021 Reason Comments Forms [employer] PAP Reason Comments Medication Problem Reason Onset Date Comments Refill Request 12/29/2021 Reason Comments Diabetes Reason Onset Date Comments Refill Request 01/12/2022 Reason Comments right calf pain x 2 hours-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 3/7-3/7 d x: chest pain Reason Comments Orders [...] is helpful. Reason Comments Patient Assistance [facility] (Basagla r and Humalog) Reason Onset Date Comments Refill Request 08/27/2023 Reason Comments Coughing Up Blood Reason Onset Date Comments Refill Request 10/12/2023 Reason Onset Date Comments Refill Request 11/02/2023 Reason Onset Date Comments Refill Request 11/14/2023 Reason Comments F/U 6 months Reason Comments Epi KIRKPATRICK letter Reason Onset Date Comments Refill Request [...] TO SLEEP MEDICINE - ADULT OFFICE/OUTPATIENT [facility] 60 MINUTES Vikas Travis PA-C [address] [place] [address] Referral ID Status Reason Start Date Expiration Date V isits Requested Visits Authorized [id number] Closed PCP Requested Referral 02/28/2024 02/27/2025 1 1 Reason Onset Date Comments Refill Request 07/09/2024 Reason Onset Date Comments Refill Request 08/01/2024 Reason Comments Oxygen Order Request Reason Comments Patient Update Reason Onset Date Comments Refill Request 08/15/2024 Reason Comments CGM Order Reason Onset Date Comments Refill Request 08/22/2024 Reason Comments Constipation Reason Comments Patient Update Appointment Reason Comments ER F/U [facility] ER 09/20/24 dx:CP Reason Onset Date Comments [...] Fracture Specialty Diagnoses / Procedures Referred By Contac t Referred To Contact Podiatry Diagnoses Closed fracture of foot, unspecified laterality, initial encounter Procedures CONSULT TO PODIATRY OFFICE/OUTPATIENT [facility] 60 MINUTES Mathieu Virgen MD [address] [place] [address] Phone: tel: fax: Referral ID Status Reason Start Date Expiration Date V isits Requested Visits Authorized [id number] Closed PCP Requested Referral 01/12/2025 01/12/2026 1 1 Reason Comments Diabetes A1C right now is 6.8 according to his marielle Reason Comments FYI-No Action Needed Diabetes note sent to [facility] Reason Onset Date Comments Refill Request 03/27/2025 refill status 03/27/2025 Reason Comments Patient Assistance [facility] form for [facility] Teams (unrecognized sec tion and content) Veneer Manufacturer Relationship Specialty Start Date End Date Mathieu Virgen MD [address] [place], [place] [address] PCP - General Family Practice 01/10/18 [facility] [address] [place] [address] Pharmacist Pharmacy 05/24/20 [facility] [address] [place] [address] Pharmacist Pharmacy 03/31/21 Veneer Manufacturer Relationship Specialty Start Date End Date Mathieu Virgen MD [address] [place] [address] PCP - General Family Practice 01/10/18 [facility] [address] [place] [address] Pharmacist Pharmacy 05/24/20 [facility] [address] [place] [address] Pharmacist Pharmacy 03/31/21 Veneer Manufacturer Relationship Specialty Start Date End Date Mathieu Virgen MD [address] [place] [address] PCP - General Family Practice 01/10/18 [facility] [address] [facility] [place] [address] Pharmacist Pharmacy 05/24/20 [facility] [address] [facility] [place] [address] Pharmacist Pharmacy 03/31/21 Veneer Manufacturer Relationship Specialty Start Date End Date Mathieu Virgen MD [address] [facility] [place] [address] PCP - General Family Practice 01/10/18 [facility] [address] [facility] [place] [address] Pharmacist Pharmacy 05/24/20 [facility] [address] [place] [address] Pharmacist Pharmacy 03/31/21 Veneer Manufacturer Relationship Specialty Start Date End Date Mathieu Virgen MD [address] [place] [address] PCP - General Family Practice 01/10/18 [facility] [address] [facility] [place] [address] Pharmacist Pharmacy 05/24/20 [facility] [address] [facility] [place] [address] Pharmacist Pharmacy 03/31/21 Veneer Manufacturer Relationship Specialty Start Date End Date Mathieu Viregn MD [address] [facility] [place] [address] PCP - General Family Practice 01/10/18 [facility] [address] [place] [address] Pharmacist Pharmacy 05/24/20 [facility] [address] [facility] [place] [address] Pharmacist Pharmacy 03/31/21 Veneer Manufacturer Relationship Specialty Start Date End Date Mathieu Virgen MD [address] [facility] [place] [address] PCP - General Family Practice 01/10/18 [facility] [address] [facility] [place] [address] Pharmacist Pharmacy 05/24/20 Kaitlyn Hernández, [facility] [address] [facility] [place] [address] Pharmacist Pharmacy 03/31/21 Veneer Manufacturer Relationship Specialty Start Date End Date Mathieu Virgen MD [address] [facility] [place] [address] PCP - General Family Practice 01/10/18 [facility] [address] [facility] [place] [address] Pharmacist Pharmacy 05/24/20 [facility] [address] [facility] [place] [address] Pharmacist Pharmacy 03/31/21 Veneer Manufacturer Relationship Specialty Start Date End Date Mathieu Virgen MD [address] [facility] [place] [address] PCP - General Family Practice 01/10/18 Asad Rothman, [facility] [address] [facility] [place] [address] Pharmacist Pharmacy 05/24/20 [facility] [address] [facility] [place] [address] Pharmacist Pharmacy 03/31/21 Veneer Manufacturer Relationship Specialty Start Date End Date Mathieu Virgen MD [address] [facility] [place] [address] PCP - General Family Practice 01/10/18 Asad [facility] [address] [facility] [place] [address] Pharmacist Pharmacy 05/24/20 Kaitlyn [facility] [address] [facility] [place] [address] Pharmacist Pharmacy 03/31/21 Veneer Manufacturer Relationship Specialty Start Date End Date Mathieu Virgen MD [address] [place] [address] PCP - General Family Practice 01/10/18 Asad [facility] [address] [place] [address] Pharmacist Pharmacy 05/24/20 Kaitlyn [facility] [address] [facility] [place] [address] Pharmacist Pharmacy 03/31/21 Veneer Manufacturer Relationship Specialty Start Date End Date Mathieu Virgen MD [address] [place] [address] PCP - General Family Practice 01/10/18 [facility] [address] [facility] [place] [address] Pharmacist Pharmacy 05/24/20 Kaitlyn [facility] [address] [place] [address] Pharmacist Pharmacy 03/31/21 Veneer Manufacturer Relationship Specialty Start Date End Date Mathieu Virgen MD [address] [facility] [place] [address] PCP - General Family Practice 01/10/18 Stephan Gregoriocj, [facility] [address] [facility] [place] [address] Pharmacist Pharmacy 05/24/20 Edgar [facility] [address] [facility] [place] [address] Pharmacist Pharmacy 03/31/21 Veneer Manufacturer Relationship Specialty Start Date End Date Mathieu Virgen MD [address] [place] [address] PCP - General Family Practice 01/10/18 Asad Rothman, [facility] [address] [facility] [place] [address] Pharmacist Pharmacy 05/24/20 Kaitlyn [facility] [address] [facility] [place] [address] Pharmacist Pharmacy 03/31/21 Veneer Manufacturer Relationship Specialty Start Date End Date Mathieu Virgen MD [address] [facility] [place] [address] PCP - General Family Medicine 01/10/18 Stephan Gregoriocj, [facility] [address] [facility] [place] [address] Pharmacist Pharmacy 05/24/20 Kaitlyn Hernández, [facility] [address] [facility] [place] [address] Pharmacist Pharmacy 03/31/21 Veneer Manufacturer Relationship Specialty Start Date End Date Mathieu Virgen MD [address] [place] [address] PCP - General Family Medicine 01/10/18 Asad Rothamn, [facility] [address] [place] [address] Pharmacist Pharmacy 05/24/20 Jaqueline Hernándezily, [facility] [address] [place] [address] Pharmacist Pharmacy 03/31/21 Veneer Manufacturer Relationship Specialty Start Date End Date Mathieu Virgen MD [address] [facility] [place] [address] PCP - General Family Medicine 01/10/18 Asad Rothman, [facility] [address] [facility] [place] [address] Pharmacist Pharmacy 05/24/20 Kaitlyn Hernández, [facility] [address] [facility] [place] [address] Pharmacist Pharmacy 03/31/21 Veneer Manufacturer Relationship Specialty Start Date End Date Mathieu Virgen MD [address] [facility] [place] [address] PCP - General Family Medicine 01/10/18 Asad Rothman, [facility] [address] [place] [address] Pharmacist Pharmacy 05/24/20 Jaqueline Hernándezily, [facility] [address] [facility] [place] [address] Pharmacist Pharmacy 03/31/21 Veneer Manufacturer Relationship Specialty Start Date End Date Mathieu Virgen MD [address] [facility] [place] [address] PCP - General Family Medicine 01/10/18 Asad Rothman, [facility] [address] [place] [address] Pharmacist Pharmacy 05/24/20 Kaitlyn Hernández, [facility] [address] [place] [address] Pharmacist Pharmacy 03/31/21 Veneer Manufacturer Relationship Specialty Start Date End Date Mathieu Virgen MD [address] [facility] [place] [address] PCP - General Family Medicine 01/10/18 As[facility] [address] [facility] [place] [address] Pharmacist Pharmacy 05/24/20 Kaitlyn [facility] [address] [place] [address] Pharmacist Pharmacy 03/31/21 Veneer Manufacturer Relationship Specialty Start Date End Date Mathieu Virgen MD [address] [facility] [place] [address] PCP - General Family Medicine 01/10/18 Asad [facility] [address] [place] [address] Pharmacist Pharmacy 05/24/20 Kaitlyn [facility] [address] [facility] [place] [address] Pharmacist Pharmacy 03/31/21 Team Status: Active Member [...] Dr. Narda Kebede MD Attending Provider Active Veneer Manufacturer Relationship Specialty Start Date End Date Mathieu Virgen MD [address] [facility] [place] [address] PCP - General Family Medicine 01/10/18 [facility]As[facility] spragueBoth[facility] [address] [facility] [place] [address] Pharmacist Pharmacy 05/24/20 Kaitlyn [facility] [address] [facility] [place] [address] Pharmacist Pharmacy 03/31/21 Veneer Manufacturer Relationship Specialty Start Date End Date Mathieu Virgen MD [address] [facility] [place] [address] PCP - General Family Medicine 01/10/18 Asad [facility] [address] [facility] [place] [address] Pharmacist Pharmacy 05/24/20 Kaitlyn [facility] [address] [facility] [place] [address] Pharmacist Pharmacy 03/31/21 Veneer Manufacturer Relationship Specialty Start Date End Date Mathieu Virgne MD [address] [facility] [place] [address] PCP - General Family Medicine 01/10/18 Asad Rothman, [facility] [address] [facility] [place] [address] Pharmacist Pharmacy 05/24/20 Kaitlyn [facility] [address] [place] [address] Pharmacist Pharmacy 03/31/21 Veneer Manufacturer Relationship Specialty Start Date End Date Mathieu Virgen MD [address] [facility] [place] [address] PCP - General Family Medicine 01/10/18 Asad [facility] [address] [facility] [place] [address] Pharmacist Pharmacy 05/24/20 Kaitlyn [facility] [address] [facility] [place] [address] Pharmacist Pharmacy 03/31/21 Veneer Manufacturer Relationship Specialty Start Date End Date Mathieu Virgen MD [address] [facility] [place] [address] PCP - General Family Medicine 01/10/18 Asad Rothman, [facility] [address] [facility] [place] [address] Pharmacist Pharmacy 05/24/20 Kaitlyn [facility] [address] [facility] [place] [address] Pharmacist Pharmacy 03/31/21 Team Status: Inactive Member Role Status Dates Dr. Mathieu Virgen MD Primary Care Provider, Referring Provider Active Halle Pina SENIOR PROCESS ANALYST, SENIOR PROCESS ANALYST-C Attending Provider Active Team Status: Active Member [...] DO Attending Provider, Emergency Pr ovider Active Veneer Manufacturer Relationship Specialty Start Date End Date Mathieu Virgen MD [address] [facility] [place] [address] PCP - General Family Medicine 01/10/18 Asad Rothman, [facility] [address] [place] [address] Pharmacist Pharmacy 05/24/20 Kaitlyn [facility] [address] [facility] [place] [address] Pharmacist Pharmacy 03/31/21 Veneer Manufacturer Relationship Specialty Start Date End Date Mathieu Virgen MD [address] [facility] [place] [address] PCP - General Family Medicine 01/10/18 Asad Rothman, [facility] [address] [facility] [place] [address] Pharmacist Pharmacy 05/24/20 Kaitlyn [facility] [address] [facility] [place] [address] Pharmacist Pharmacy 03/31/21 Team Status: Inactive Member Role Status Dates Dr. Mathieu Virgen MD Primary Care Provider Active Dr. Mani Esquivel DO Emergency Provider Active Veneer Manufacturer Relationship Specialty Start Date End Date Mathieu Virgen MD [address] [facility] [place] [address] PCP - General Family Medicine 01/10/18 Asad Rothman, [facility] [address] [place] [address] Pharmacist Pharmacy 05/24/20 Kaitlyn Hernández, [facility] [address] [place] [address] Pharmacist Pharmacy 03/31/21 Veneer Manufacturer Relationship Specialty Start Date End Date Mathieu Virgen MD [address] [facility] [place] [address] PCP - General Family Medicine 01/10/18 FaizanAsad spragueBothwell Regional Health [facility] [address] [place] [address] Pharmacist Pharmacy 05/24/20 [place], [facility]lynBoth[facility] [address] [place] [address] Pharmacist Pharmacy 03/31/21 Veneer Manufacturer Relationship Specialty Start Date End Date Mathieu Virgen MD [address] [place] [address] PCP - General Family Medicine 01/10/18 Asad [facility]man[facility] [address] [place] [address] Pharmacist Pharmacy 05/24/20 Jaqueline HernándezilyBothwell [facility] [address] [place] [address] Pharmacist Pharmacy 03/31/21 Veneer Manufacturer Relationship Specialty Start Date End Date Mathieu Virgen MD [address] [place] [address] PCP - General Family Medicine 01/10/18 Stephan GregoriocjBoth[facility] [address] [place] [address] Pharmacist Pharmacy 05/24/20 Edgar KaitlynBothwell [facility] [address] [place] [address] Pharmacist Pharmacy 03/31/21 Veneer Manufacturer Relationship Specialty Start Date End Date Mathieu Virgen MD [address] [place] [address] PCP - General Family Medicine 01/10/18 Asad Rothman, [facility] [address] [place] [address] Pharmacist Pharmacy 05/24/20 Edgar Kaitlyn, [facility] [address] [place] [address] Pharmacist Pharmacy 03/31/21 Veneer Manufacturer Relationship Specialty Start Date End Date Mathieu Virgen MD [address] [place] [address] PCP - General Family Medicine 01/10/18 Asad Rothman, [facility] [address] [place] [address] Pharmacist Pharmacy 05/24/20 Edgar Kaitlyn, [facility] [address] [facility] [place] [address] Pharmacist Pharmacy 03/31/21 Veneer Manufacturer Relationship Specialty Start Date End Date Mathieu Virgen MD [address] [place] [address] PCP - General Family Medicine 01/10/18 FaizanAsad sprague, [facility] [address] [place] [address] Pharmacist Pharmacy 05/24/20 [place], Kaitlyn, [facility] [address] [place] [address] Pharmacist Pharmacy 03/31/21 Veneer Manufacturer Relationship Specialty Start Date End Date Mathieu Virgen MD [address] [place] [address] PCP - General Family Medicine 01/10/18 Stephan Gregoriocj, [facility] [address] [place] [address] Pharmacist Pharmacy 05/24/20 Kaitlyn Hernández, [facility] [address] [place] [address] Pharmacist Pharmacy 03/31/21 Veneer Manufacturer Relationship Specialty Start Date End Date Mathieu Virgen MD [address] [facility] [place] [address] PCP - General Family Medicine 01/10/18 Asad Rothman, [facility] [address] [facility] [place] [address] Pharmacist Pharmacy 05/24/20 Kaitlyn Hernández, [facility] [address] [place] [address] Pharmacist Pharmacy 03/31/21 Veneer Manufacturer Relationship Specialty Start Date End Date Mathieu Virgen MD [address] [place] [address] PCP - General Family Medicine 01/10/18 Asad Rothman, [facility] [address] [place] [address] Pharmacist Pharmacy 05/24/20 Kaitlyn [facility] [address] [facility] [place] [address] Pharmacist Pharmacy 03/31/21 Veneer Manufacturer Relationship Specialty Start Date End Date Mathieu Virgen MD [address] [facility] [place] [address] PCP - General Family Medicine 01/10/18 Asad Rothman, [facility] [address] [place] [address] Pharmacist Pharmacy 05/24/20 Kaitlyn Hernández, [facility] [address] [facility] [place] [address] Pharmacist Pharmacy 03/31/21 Veneer Manufacturer Relationship Specialty Start Date End Date Mathieu Virgen MD [address] [place] [address] PCP - General Family Medicine 01/10/18 Asad [facility]man[facility] [address] [place] [address] Pharmacist Pharmacy 05/24/20 EdgarKaitlyn byrneBothwell Regional Health Center [address] [facility] [place] [address] Pharmacist Pharmacy 03/31/21 Team Status: Inactive Member Role Status Dates Dr. Mathieu Virgen MD Primary Care Provider Active Dr. Chris Faulkner MD Attending Provider, Chun moore Active Veneer Manufacturer Relationship Specialty Start Date End Date Mathieu Virgen MD [address] [facility] [place] [address] PCP - General Family Medicine 01/10/18 Asad [facility]man[facility] [address] [facility] [place] [address] Pharmacist Pharmacy 05/24/20 Kaitlyn HernándezBoth[facility] [address] [facility] [place] [address] Pharmacist Pharmacy 03/31/21 Veneer Manufacturer Relationship Specialty Start Date End Date Mathieu Virgen MD [address] [facility] [place] [address] PCP - General Family Medicine 01/10/18 Asad Rothman, [facility] [address] [facility] [place] [address] Pharmacist Pharmacy 05/24/20 Kaitlyn Hernández, [facility] [address] [facility] [place] [address] Pharmacist Pharmacy 03/31/21 Veneer Manufacturer Relationship Specialty Start Date End Date Mathieu Virgen MD [address] [facility] [place] [address] PCP - General Family Medicine 01/10/18 Kaitlyn [facility]Both[facility] [address] [facility] [place] [address] Pharmacist Pharmacy 03/31/21 Veneer Manufacturer Relationship Specialty Start Date End Date Mathieu Virgen MD [address] [facility] [place] [address] PCP - General Family Medicine 01/10/18 [place]lynBoth[facility] [address] [place] [address] Pharmacist Pharmacy 03/31/21 Veneer Manufacturer Relationship Specialty Start Date End Date Mathieu Virgen MD [address] [place] [address] PCP - General Family Medicine 01/10/18 Team Status: Inactive Member Role Status Dates Dr. Mathieu Virgen MD Primary Care Provider Active Dr. Tre Johnson DO Emergency Provider Active Team Status: Inactive Member Role Status Dates Dr. Mathieu Virgen MD Primary Care Provider Active Dr. Chris Faulkner MD Attending Provider Active Veneer Manufacturer Relationship Specialty Start Date End Date Mathieu Virgen MD [address] [facility] [place] [address] PCP - General Family Medicine 01/10/18 Veneer Manufacturer Relationship Specialty Start Date End Date Mathieu Virgen MD [address] [place], [place] [address] PCP - General Family Medicine 01/10/18 Veneer Manufacturer Relationship Specialty Start Date End Date Mathieu Virgen MD [address] [place] [address] PCP - General Family Medicine 01/10/18 Veneer Manufacturer Relationship Specialty Start Date End Date Mathieu Virgen MD [address] [place] [address] PCP - General Family Medicine 01/10/18 Veneer Manufacturer Relationship Specialty Start Date End Date Mathieu Virgen MD [address] [place] [address] PCP - General Family Medicine 01/10/18 Veneer Manufacturer Relationship Specialty Start Date End Date Mathieu Virgen MD [address] [place] [address] PCP - General Family Medicine 01/10/18 Veneer Manufacturer Relationship Specialty Start Date End Date Mathieu Virgen MD [address] [place] [address] PCP - General Family Medicine 01/10/18 Veneer Manufacturer Relationship Specialty Start Date End Date Mathieu Virgen MD [address] [place] [address] PCP - General Family Medicine 01/10/18 Veneer Manufacturer Relationship Specialty Start Date End Date Mathieu Virgen MD [address] [place], [place] [address] PCP - General Family Medicine 01/10/18 Veneer Manufacturer Relationship Specialty Start Date End Date Mathieu Virgen MD [address] [place], [place] [address]41 PCP - General Family Medicine 01/10/18 Veneer Manufacturer Relationship Specialty Start Date End Date Mathieu Virgen MD [address] [place] [address] PCP - General Family Medicine 01/10/18 Veneer Manufacturer Relationship Specialty Start Date End Date Mathieu Virgen MD [address] [place] [address] PCP - General Family Medicine 01/10/18 Veneer Manufacturer Relationship Specialty Start Date End Date Mathieu Virgen MD [address] [place] [address] PCP - General Family Medicine 01/10/18 Veneer Manufacturer Relationship Specialty Start Date End Date Mathieu Virgen MD [address] [place] [address] PCP - General Family Medicine 01/10/18 Veneer Manufacturer Relationship Specialty Start Date End Date Mathieu Virgen MD [address] [place] [address] PCP - General Family Medicine 01/10/18 Veneer Manufacturer Relationship Specialty Start Date End Date Mathieu Virgen MD [address] [place] [address] PCP - General Family Medicine 01/10/18 Veneer Manufacturer Relationship Specialty Start Date End Date Mathieu Virgen MD [address] [place] [address] PCP - General Family Medicine 01/10/18 Veneer Manufacturer Relationship Specialty Start Date End Date Mathieu Virgen MD [address] [place] [address] PCP - General Family Medicine 01/10/18 FaizanAsad sprague, [facility] [address] [place] [address] Pharmacist Pharmacy 05/24/20 07/30/23 Edgar [facility]lynBoth[facility] [address] [place] [address] Pharmacist Pharmacy 03/31/21 08/29/23 Veneer Manufacturer Relationship Specialty Start Date End Date Mathieu Virgen MD [address] [place] [address] PCP - General Family Medicine 01/10/18 Asad Rothman, [facility] [address] [place] [address] Pharmacist Pharmacy 05/24/20 07/30/23 Kaitlyn Hernández, [facility] [address] [place] [address] Pharmacist Pharmacy 03/31/21 08/29/23 Veneer Manufacturer Relationship Specialty Start Date End Date Mathieu Virgen MD [address] [place] [address] PCP - General Family Medicine 01/10/18 FaizanAsad sprague, [facility] [address] [place] [address] Pharmacist Pharmacy 05/24/20 07/30/23 Kaitlyn Hernández, [facility] [address] [place] [address] Pharmacist Pharmacy 03/31/21 08/29/23 Veneer Manufacturer Relationship Specialty Start Date End Date Mathieu Virgen MD [address] [place] [address] PCP - General Family Medicine 01/10/18 Asad Rothman, [facility] [address] [place] [address] Pharmacist Pharmacy 05/24/20 07/30/23 [facility]lyn [facility] [address] [place] [address] Pharmacist Pharmacy 03/31/21 08/29/23 Veneer Manufacturer Relationship Specialty Start Date End Date Mtahieu Virgen MD [address] [place] [address] PCP - General Family Medicine 01/10/18 Asad Rothman, [facility] [address] [place] [address] Pharmacist Pharmacy 05/24/20 07/30/23 Kaitlyn Hernández, [facility] [address] [place] [address] Pharmacist Pharmacy 03/31/21 08/29/23 Veneer Manufacturer Relationship Specialty Start Date End Date Mathieu Virgen MD [address] [place] [address] PCP - General Family Medicine 01/10/18 Asad Rothman, [facility] [address] [place] [address] Pharmacist Pharmacy 05/24/20 07/30/23 Veneer Manufacturer Relationship Specialty Start Date End Date Mathieu Virgen MD [address] [place] [address] PCP - General Family Medicine 01/10/18 Veneer Manufacturer Relationship Specialty Start Date End Date Mathieu Virgen MD [address] [facility] [place] [address] PCP - General Family Medicine 01/10/18 Veneer Manufacturer Relationship Specialty Start Date End Date Mathieu Virgen MD [address] [facility] [place] [address] PCP - General Family Medicine 01/10/18 Veneer Manufacturer Relationship Specialty Start Date End Date Mathieu Virgen MD [address] [facility] [place] [address] PCP - General Family Medicine 01/10/18 Veneer Manufacturer Relationship Specialty Start Date End Date Mathieu Virgen MD [address] [facility] [place] [address] PCP - General Family Medicine 01/10/18 Veneer Manufacturer Relationship Specialty Start Date End Date Mathieu Virgen MD [address] [facility] [place] [address] PCP - General Family Medicine 01/10/18 Veneer Manufacturer Relationship Specialty Start Date End Date Mathieu Virgen MD [address] [facility] [place] [address] PCP - General Family Medicine 01/10/18 Veneer Manufacturer Relationship Specialty Start Date End Date Mathieu Virgen MD [address] [facility] [place] [address] PCP - General Family Medicine 01/10/18 Veneer Manufacturer Relationship Specialty Start Date End Date Mathieu Virgen MD [address] [facility] [place] [address] PCP - General Family Medicine 01/10/18 Veneer Manufacturer Relationship Specialty Start Date End Date Mathieu Virgen MD [address] [facility] [place] [address] PCP - General Family Medicine 01/10/18 Veneer Manufacturer Relationship Specialty Start Date End Date Mathieu Virgen MD [address] [facility] [place] [address] PCP - General Family Medicine 01/10/18 Denisha Shepard, LABORER [employer] REFINERY.PCU RN [address] [facility] [place] [address] Marine Services Technician Family Medicine 08/25/24 Julianna Hood LABORER [employer]RO[employer]UM REFINERY.PCU RN [address] [facility] [place] [address] Marine Services Technician Family Medicine 08/25/24 Veneer Manufacturer Relationship Specialty Start Date End Date Mathieu Virgen MD [address] [facility] [place] [address] PCP - General Family Medicine 01/10/18 Denisha Shepard, LABORER PETROLEUM REFINERY.PCU RN [address] [facility] [place] [address] Marine Services Technician Family Medicine 08/25/24 Julianna Hood LABORER PETROLEUM REFINERY.PCU RN [address] [facility] [place] [address] Marine Services Technician Family Medicine 08/25/24 Veneer Manufacturer Relationship Specialty Start Date End Date Mathieu Virgen MD [address] [facility] [place] [address] PCP - General Family Medicine 01/10/18 Denisha Shepard, LABORER [employer]ROLE[employer] REFINERY.PCU RN [address] [place] [address] Marine Services Technician Family Medicine 08/25/24 Julianna Hood APRN.PCU RN [address] [place] [address] Marine Services Technician Family Medicine 08/25/24 Veneer Manufacturer Relationship Specialty Start Date End Date Mathieu Virgen MD [address] [place] [address] PCP - General Family Medicine 01/10/18 Denisha Shepard APRN.PCU RN [address] [place] [address] Marine Services Technician Family Medicine 08/25/24 Julianna Hood LABORER PETROLEUM REFINERY.PCU RN [address] [place] [address] Marine Services Technician [facility] [facility] 08/25/24 Veneer Manufacturer Relationship Specialty Start Date End Date Mathieu Virgen MD [address] [place] [address] PCP - General Family Medicine 01/10/18 Denisha Shepard LABORER PETROLE[employer] REFINERY.PCU RN [address] [place] [address] Marine Services Technician Family Medicine 08/25/24 Julianna Hood LABORER [employer]RO[employer] REFINERY.PCU RN [address] [place] [address] Marine Services Technician Family [facility] 08/25/24 Veneer Manufacturer Relationship Specialty Start Date End Date Mathieu Virgen MD [address] [place] [address] PCP - General Family Medicine 01/10/18 Denisha Shepard APRN.PCU RN [address] [place] [address] Marine Services Technician Family Medicine 08/25/24 Julianna Hood APRN.PCU RN [address] [place] [address] Marine Services Technician Family Medicine 08/25/24 Veneer Manufacturer Relationship Specialty Start Date End Date Mathieu Virgen MD [address] [place] [address] PCP - General Family Medicine 01/10/18 Denisha Shepard APRN.PCU RN [address] [place] [address] Marine Services Technician Family Medicine 08/25/24 Julianna Hood APRN.PCU RN [address] [place] [address] [facility] Veneer Manufacturer Relationship Specialty Start Date End Date Mathieu Virgen MD [address] [place] [address] PCP - General Family Medicine 01/10/18 Denisha Shepard APRN.PCU RN [address] [place] [address] Marine Services Technician Family Medicine 08/25/24 Julianna Hood APRN.PCU RN [address] [place] [address] [facility] Veneer Manufacturer Relationship Specialty Start Date End Date Mathieu Virgen MD [address] [place], [place] [address] PCP - General Family Medicine 01/10/18 Denisha Shepard APRN.PCU RN [address] [place], [place] [address] [facility] 08/[facility]24 Julianna Hood APRN.PCU RN [address] [place], [place] [id number] [facility] Team Status: Active Member Role Status Dates Dr. Mathieu Virgen MD Primary Care Provider Active Team Status: Inactive Member Role Status Dates Dr. Mathieu Virgen MD Primary Care Provider Active Start: August 11, 2024 End: August 11, 2024 Sergey Carreon SENIOR PROCESS ANALYST, SENIOR PROCESS ANALYST-C Attending Provider Active S tart: August 11, 2024 End: August 11, 2024 Sergey Carreon NP, SENIOR PROCESS ANALYST-C Referring Provider Active S tart: August 11, 2024 End: August 11, 2024 Team Status: Inactive Member Role Status Dates Dr. Mathieu Virgen MD Primary Care Provider Active Start: August 13, 2024 End: August 13, 2024 Dr. Mathieu Virgen MD Referring Provider Active Start: August 13, 2024 End: August 13, 2024 Sergey Carreon NP, SENIOR PROCESS ANALYST-C Attending Provider Active S tart: August 13, 2024 End: August 13, 2024 Team Status: Inactive Member Role Status Dates Dr. Mathieu Virgen MD Primary Care Provider Active Start: August 25, 2024 End: August 25, 2024 EZRA Welch Attending Provider Active Start: August 25, 2024 End: August 25, 2024 EZRA Welch Referring Provider Active Start: August 25, 2024 [...] 2024 End: September 03, 2024 Sergey Carreon NP SENIOR PROCESS ANALYST-C Attending Provider Active S tart: September 03, [...] 07, 2024 End: October 07, 2024 Tierra Gilbert PA PA Attending Provider Active Start: October 07, 2024 End: October 07, 2024 Tierra Gilbert PA, PA Referring Provider Active Start: October 07, 2024 End: October 07, 2024 Team Status: Inactive Member Role Status Dates Dr. Mathieu Virgen MD Primary Care Provider Active Start: October 23, 2024 End: October 23, 2024 Megan Macario NP-C Attending Provider Active Start: October 23, 2024 [...] November 10, 2024 End: November 10, 2024 Megan Macario SENIOR PROCESS ANALYST-C Attending Provider Active Start: November 10, 2024 [...] November 28, 2024 End: November 28, 2024 Veneer Manufacturer Relationship Specialty Start Date End Date Mathieu Virgen MD [address] [place] [address] PCP - General Family Medicine 01/10/18 Denisha Shepard, PAIGE.PCU RN [address] [place] [address] Marine Services Technician Family Medicine 08/25/24 Julianna Hood, LABORER [employer]ROLEUM REFINERY.PCU RN [address] [place] [address] Marine Services Technician Family [facility] 08/25/24 Veneer Manufacturer Relationship Specialty Start Date End Date Mathieu Viregn MD [address] [place] [address] PCP - General Family Medicine 01/10/18 Denisha Shepard LABORER PETROLE[employer] REFINERY.PCU RN [address] [place] [address] Marine Services Technician Family Medicine 08/25/24 Julianna Hood LABORER PETROLEUM REFINERY.PCU RN [address] [place] [address] [facility] Veneer Manufacturer Relationship Specialty Start Date End Date Mathieu Virgen MD [address] [place] [address] PCP - General Family Medicine 01/10/18 Denisha Shepard, LABORER PETROLEUM REFINERY.PCU RN [address] [place] [address] [facility] 08/25/24 Julianna Hood LABORER PETROLEUM REFINERY.PCU RN [address] [place] [address] [facility] 08/25/24 Veneer Manufacturer Relationship Specialty Start Date End Date Mathieu Virgen MD [address] [place] [address] PCP - General Family Medicine 01/10/18 Denisha Shepard, LABORER PETROLEUM REFINERY.PCU RN [address] [place] [address] [facility] 08/25/24 Julianna Hood LABORER PETROLEUM REFINERY.PCU RN [address] [place] [address] [facility] 08/25/24 Veneer Manufacturer Relationship Specialty Start Date End Date Mathieu Virgen MD [address] [place] [address] PCP - General Family Medicine 01/10/18 Denisha Shepard, LABORER PETROLEUM REFINERY.PCU RN [address] [place] [address] [facility] 08/25/24 Julianna Hood LABORER PETROLEUM REFINERY.PCU RN [address] [place] [address] [facility] 08/25/24 Veneer Manufacturer Relationship Specialty Start Date End Date Mathieu Virgen MD [address] [place] [address] PCP - General Family Medicine 01/10/18 Denisha Shepard, LABORER PETROLEUM REFINERY.PCU RN [address] [place] [address] [facility] 08/25/24 Julianna Hood LABORER PETROLEUM REFINERY.PCU RN [address] [place] [address] [facility] 08/25/24 Team Status: Inactive Member Role Status [...] 2025 End: January 21, 2025 Megan Macario NP-C Attending Provider Active Start: January 21, 2025 [...] End: January 26, 2025 Sergey Carreon NP, SENIOR PROCESS ANALYST-C Attending Provider Active S tart: January 26, 2025 End: January 26, 2025 Veneer Manufacturer Relationship Specialty Start Date End Date Mathieu Virgen MD [address] [place], [place] [address] PCP - General Family Medicine 01/10/18 Denisha Shepard APRN.PCU RN [address] [place] [address] Marine Services Technician Family Medicine 08/25/24 Julianna Hood APRN.PCU RN [address] [facility], [place] [address] [facility] 08/25/24 Team Status: Inactive Member Role Status [...] 2025 End: February 26, 2025 EZRA Welch Referring Provider Active Start: February 26, 2025 End: February 26, 2025 Team Status: Active Member Role Status Dates Dr. Mathieu Virgen MD Primary Care Provider Active Start: March 02, 2025 EZRA Welch Referring Provider Active Start: March 02, 2025 EZRA Welch Other Provider Active St art: March 02, 2025 Dr. Marvin Reeves DO Attending Provider Active S tart: March 02, 2025 Veneer Manufacturer Relationship Specialty Start Date End Date Mathieu Virgen MD [address] [facility], [place] [address] PCP - General Family Medicine 01/10/18 Denisha Shepard, LABORER PETROLEUM REFINERY.PCU RN [address] [facility], [place] [id number] [facility] 08/25/24 Julianna Hood, LABORER PETROLEUM REFINERY.PCU RN [address] [facility], [place] [address] [facility] 08/25/24 Team Status: Active Member Role/Relationship [...] End: January 26, 2025 Sergey Carreon NP SENIOR PROCESS ANALYST-C Attending Provider Active S tart: January 26, 2025 End: January 26, 2025 Team Status: Inactive Member Role/Relationship Status Dates Dr. Mathieu Virgen MD Primary Care Provider Active Start: January 30, 2025 End: January 30, 2025 TALIA WelchC Attending Provider Active Start: January 30, 2025 End: January 30, 2025 Megan Macario SENIOR PROCESS ANALYST-C Referring Provider Active Start: January 30, 2025 End: January 30, 2025 Team Status: Active Member Role/Relationship Status Dates Dr. Mathieu Virgen MD Primary Care Provider Active Start: January 30, 2025 Dr. Marvin Reeves , Attending Provider Active S tart: January 30, 2025 Megan Macario SENIOR PROCESS ANALYST-C Referring Provider Active Start: January 30, 2025 Team Status: Inactive Member Role/Relationship Status Dates Dr. Mathieu Virgen MD Primary Care Provider Active Start: February 26, 2025 End: February 26, 2025 Megan Macario SENIOR PROCESS ANALYST-C Attending Provider Active Start: February 26, 2025 End: February 26, 2025 Megan Macario SENIOR PROCESS ANALYST-C Referring Provider Active Start: February 26, 2025 End: February 26, 2025 Team Status: Active Member Role/Relationship Status Dates Dr. Mathieu Virgen MD Primary Care Provider Active Start: March 02, 2025 Megan Macario SENIOR PROCESS ANALYST-C Referring Provider Active Start: March 02, 2025 Megan Macario NP-C Other Provider Active St art: March 02, 2025 Dr. Marvin Reeves , Attending Provider Active S tart: March 02, 2025 Team Status: Inactive Member Role/Relationship Status Dates Dr. Mathieu Virgen MD Primary Care Provider Active Start: April 01, 2025 End: April 01, 2025 Megan Macario SENIOR PROCESS ANALYST-C Attending Provider Active Start: April 01, 2025 End: April 01, 2025 Megan Macario NP-C Referring Provider Active Start: April 01, 2025 End: April 01, 2025 Team Status: Inactive Member Role/Relationship Status Dates Dr. Mathieu Virgen MD Primary Care Provider Active Start: April 08, 2025 End: April 08, 2025 Dr. Mathieu Virgen MD Referring Provider Active Start: April 08, 2025 End: April 08, 2025 Megan Macario NP-C Attending Provider Active Start: April 08, 2025 [...] 2025 End: January 21, 2025 Megan Macario NP-C Attending Provider Active Start: January 21, 2025 [...] End: January 26, 2025 Sergey Carreon NP, SENIOR PROCESS ANALYST-C Attending Provider Active S tart: January 26, [...] 2025 End: February 26, 2025 EZRA Welch Referring Provider Active Start: February 26, 2025 End: February 26, 2025 Team Status: Active Member Role/Relationship Status Dates Dr. Mathieu Virgen MD Primary Care Provider Active Start: March 02, 2025 Megan Macario NP-C Referring Provider Active Start: March 02, 2025 Megan Macario NP-C Other Provider Active St art: March 02, 2025 Dr. Marvin Reeves DO Attending Provider Active S tart: March 02, 2025 Team Status: Inactive Member Role/Relationship Status Dates Dr. Mathieu Virgen MD Primary Care Provider Active Start: April 01, 2025 End: April 01, 2025 Megan Macario NP-C Attending Provider Active Start: April 01, 2025 End: April 01, 2025 Megan Macario NP-C Referring Provider Active Start: April 01, 2025 End: April 01, 2025 Team Status: Inactive Member Role/Relationship Status Dates Dr. Mathieu Virgen MD Primary Care Provider Active Start: April 08, 2025 End: April 08, 2025 Dr. Mathieu Viregn MD Referring Provider Active Start: April 08, 2025 End: April 08, 2025 Megan Macario NP-Lonnie Attending Provider Active Start: April 08, 2025 End: April 08, 2025 Team Status: Inactive Member Role/Relationship Status Dates Dr. Mathieu Virgen MD Primary Care Provider Active Start: April 08, 2025 End: April 08, 2025 Megan Macario NP-Lonnie Attending Provider Active Start: April 08, 2025 End: April 08, 2025 Megan Macario NP-Lonnie Referring Provider Active Start: April 08, 2025 End: April 08, 2025 Team Status: Active Member Role/Relationship Status Dates Dr. Mathieu Virgen MD Primary Care Provider Active Start: April 29, 2025 Dr. Yola Canales MD Referring Provider Active S tart: April 29, 2025 Dr. Yola Canales MD Emergency Provider Active S tart: April 29, 2025 Dr. Narda Prather DO Admit Provider Active Start: April 29, 2025 Dr. Narda Prather DO Attending Provider Active Start: April 29, 2025 Team Status: Inactive Member Role/Relationship Status Dates Dr. Mathieu Virgen MD Primary Care Provider Active Start: April 29, 2025 End: April 30, 2025 Dr. Yola Canales MD Referring Provider Active S tart: April 29, 2025 End: April 30, 2025 Dr. Yola Canales MD Emergency Provider Active S tart: April 29, 2025 End: April 30, 2025 Dr. Narda Prather DO Admit Provider Active Start: April 29, 2025 End: April 30, 2025 Dr. Narda Prather DO Other Provider Active Start: April 29, 2025 End: April 30, 2025 Dr. Chilango Wheeler DO Attending Provider Active Start: April 29, 2025 End: April 30, 2025 Team Status: Active Member Role/Relationship Status Dates Dr. Mathieu Virgen MD Primary Care Provider Active Start: April 30, 2025 Dr. Yola Canales MD Referring Provider Active S tart: April 30, 2025 Dr. Yola Canales MD Emergency Provider Active S tart: April 30, 2025 Dr. Narda Prather DO Admit Provider Active Start: April 30, 2025 Dr. Narda Prather DO Other Provider Active Start: April 30, 2025 Dr. Chilango Wheeler DO Other Provider Active Start: April 30, 2025 Dr. 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 Mathieu Virgen MD Primary Care Provider Active Start: May 04, 2025 End: May 04, 2025 Dr. Mathieu Virgen MD Referring Provider Active Start: May 04, 2025 End: May 04, 2025 CASIMIRO Santana Attending Provider Active St art: May 04, 2025 End: May 04, 2025 Goals (unrecognized section and content) Goals [...] section and content) DATE CREATED AUTHOR 05/18/2024 [facility] DATE CREATED AUTHOR AUTHOR'S ORGANIZ ATION 05/03/2025 [facility] DATE CREATED AUTHOR AUTHOR'S ORGANIZ ATION 05/30/2025 [facility] FOR RECORDS PERTAINING TO PATIENTS WHO ARE [...] BE BASED ON THE PRIMARY CLINICAL RECORDS. [facility], [facility]. provides no warranty or guarantee of the accuracy or completeness of information in this document.
[2025-05-31 12:15] LABS: D-Dimer Quantitative (DVT/PE) 0.31 FEU/ug/m (0.27-0.49)
[2025-05-31 12:19] LABS: Anion Gap 15 (5-15); BUN 25 mg/dL (4-19); BUN/Creat Ratio 25.2 RATIO (10-20); Calcium,Total 9.5 mg/dL (7.6-11.0); Carbon Dioxide 20.0 mmol/L (21.0-32.0); Chloride 100 mmol/L (98-108); Estimated Creatinine Clearance 66.13 ml/min (50-250); Glucose 164 mg/dL (70-99); Potassium 4.1 mmol/L (3.3-5.1)
[2025-05-31 12:59] LABS: Pro- Brain NATRIURETIC PEPTIDE 121 pg/mL (<=1800); Troponin T High Sensitivity 68 ng/L (<=22)
[2025-05-31 14:16] LABS: Troponin T High Sens 2 HR 59 ng/L (<=22)
--- NOTE | 2025-05-31 14:53 | PCM.HP.STD ---
HPI - General General Date of Admission: 05/31/25 Date of Service: 05/31/25 Chief Complaint: Chest pain HPI Narrative INGRIS BALBUENA, is a 80 M who presented to [facility] ED on 05/31/2025 with chest pain. Patient follows with [place] [facility]. He was recently hospitalized here from 04/29-04/30 after an episode of syncope. History is significant for paroxysmal A-fib, nonobstructive CAD, hypertension, hyperlipidemia. Echo showed EF 60%, mild concentric LV hypertrophy, mild to moderate aortic stenosis, no other concerning findings. Stress test was negative. Was suspected that his syncopal episode was due to some degree of dehydration. He saw cardiology in the office shortly after discharge and they noted that he was hypotensive in the office, so they decreased his carvedilol dosing and held his Lasix. However, he began to have some weight gain after this so he was placed back on Lasix daily as needed. Patient has been taking the Lasix fairly regularly over the past few weeks with good urine output and denies any swelling of his lower extremities today. He began to have chest pain yesterday evening. He noted that the chest pain was constant and sharp, and it was worse with leaning forward, taking a deep breath and any movement. Pain located over the substernal area. He denied any palpitations, lightheadedness/dizziness or nausea/vomiting. In the ED he was hemodynamically stable on room air at rest. CBC and BMP were benign. However, troponin was elevated with trend 68 > 59. Chest x-ray with stable mild cardiomegaly with pulmonary vascular congestion and interstitial lung disease. EKG with no ischemic changes and appeared stable from previous. Given his elevated troponins and chest pain with chest x-ray findings, hospitalist was contacted for admission. I saw the patient at bedside in the ED, daughter was present. Patient is hard of hearing but is mentally sharp. He was sitting back in bed fairly comfortably and answering questions appropriately. He showed me that he has increasing pain and discomfort when he leans forward, and notes that the pain is in the left side of his chest and radiates up into the lower part of the left neck. On further discussion, patient notes having viral URI symptoms about 4 to 5 days ago that resolved in a few days. He denies any fevers or chills or any other concerns currently. Will be admitted for further management. FORMERLY [facility] Medical History History of CAD (coronary artery disease) Paroxysmal atrial fibrillation Chronic pain Kidney stones GERD (gastroesophageal reflux disease) Non-smoker Diastolic dysfunction Dyspnea Diabetes Sleep apnea Atrial fibrillation Cancer Walker as ambulation aid Arthritis Prostate disease Complete edentulism, class III Gastric reflux CPAP (continuous positive airway pressure) dependence History of pain when walking History of edema History of echocardiogram History of stress test Cardiology follow-up encounter Blindness Bladder cancer Restrictive airway disease Morbid obesity Pneumonia due to COVID-19 virus Left lower lobe pneumonia Acute respiratory failure with hypoxia Wears hearing aid Wears glasses Insulin dependent diabetes mellitus Psoriasis High cholesterol Restless legs Back pain Injury of back Dietary restriction Former smoker Shortness of breath on exertion Hypertension Right bundle branch 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 Nonobstructive atherosclerosis of coronary artery Obesity BPH (benign prostatic hyperplasia) Hyperlipidemia Essential (primary) hypertension Atrial fibrillation with RVR (02/05/21) Home Medications Medication Instructions Recorded Last Taken Type metformin 500 mg tablet,extended 1,000 mg PO BID blood sugar 10/24/21 05/30/25 History release 24 hr albuterol sulfate 90 mcg/actuation 1 inh inhalation Q6H PRN SOB #8.5 11/30/21 Unknown Rx aerosol inhaler grams finasteride 5 mg tablet 5 mg PO DAILY bph 10/27/22 05/30/25 History famotidine 20 mg tablet 20 mg PO BID reflux 09/22/23 05/30/25 History insulin glargine 100 unit/mL (3 40 unit subcut .COMPLEX diabetes 09/22/23 05/27/25 History mL) subcutaneous pen (Basaglar KwikPen U-100 Insulin) turmeric root extract 500 mg 1,000 mg PO DAILY viatmin 10/24/23 05/30/25 History capsule diltiazem HCl 120 mg 120 mg PO DAILY heart 06/08/24 05/30/25 History capsule,extended release 24 hr (Cartia XT) tamsulosin 0.4 mg capsule 0.4 mg PO BID bph 07/10/24 05/30/25 History cholecalciferol (vitamin D3) 50 2,000 unit PO DAILY supplement 07/22/24 05/30/25 History mcg (2,000 unit) capsule (Vitamin D3) solifenacin 10 mg tablet 10 mg PO DAILY bladder 07/22/24 05/30/25 History empagliflozin 25 mg tablet 25 mg PO DAILY diabetes #30 tabs 07/25/24 05/30/25 Rx (Jardiance) flecainide 100 mg tablet 100 mg PO Q12H heart #180 tabs 08/13/24 05/30/25 Rx atorvastatin 20 mg tablet 20 mg PO DAILY cholesterol 09/01/24 05/30/25 History spironolactone 25 mg tablet 25 mg PO DAILY diuretic #30 tabs 09/23/24 05/30/25 Rx isosorbide mononitrate 30 mg 30 mg PO DAILY heart #90 tabs 10/22/24 05/30/25 Rx tablet,extended release 24 hr insulin aspart 20 unit subcut TID diabetes 01/19/25 05/30/25 History (niacinamide)(U-100) 100 unit/mL(3 mL) subcutaneous pen (Fiasp FlexTouch U-100 Insulin) mecobalamin (vitamin B12) 1,000 1,000 mcg PO DAILY vitamin 01/19/25 05/30/25 History mcg chewable tablet ferrous gluconate 324 mg (37.5 mg 324 mg PO DAILY 30 days 04/30/25 05/30/25 Rx iron) tablet furosemide 40 mg tablet (Lasix) 40 mg PO PRN 05/22/25 05/30/25 History apixaban 5 mg tablet (Eliquis) 5 mg PO BID BLOOD THINNER 05/31/25 05/30/25 History carvedilol 25 mg tablet 25 mg PO BID 05/31/25 05/30/25 History Allergy/AdvReac Type Severity Reaction Status Date / Time amoxicillin Allergy Rash Verified 05/31/25 11:08 Family History Sister Colon cancer Brother Diabetes Mother Diabetes Heart disease Cancer Father Heart disease Cancer Diabetes Surgical History Bladder disease Hx of right cataract extraction Hx of colonoscopy Hx of transurethral resection of prostate H/O wrist surgery History of left heart catheterization (02/07/21) Hx of umbilical hernia repair Hx of cholecystectomy Status post surgical manipulation of ankle joint H/O hemorrhoidectomy Social History household members: spouse Smoking Status: Former smoker how long ago did patient quit smokin years ago alcohol intake: never substance use type: does not use caffeine: Yes Type: coffee Number of servings: 1 ROS Constitutional Constitutional: Reports fatigue; Denies chills, fever(s) or weakness Eyes Eyes: Denies change in vision Cardiovascular Cardiovascular: Reports chest pain; Denies dyspnea on exertion, edema, lightheadedness, orthopnea or palpitations Respiratory/Chest Respiratory/Chest: Reports shortness of breath with exertion; Denies cough, productive cough, shortness of breath at rest or wheezing Gastrointestinal Gastrointestinal: Denies abdominal pain Genitourinary Genitourinary: Denies dysuria Musculoskeletal Musculoskeletal: Denies arthralgias or myalgias Neurologic Neurologic: Denies dizziness, focal weakness or headache(s) Vital Signs Vital Signs Vital Signs: 05/31/25 11:08 05/31/25 11:11 05/31/25 11:19 Temperature 97.7 F L Temperature Source Oral Pulse Rate 79 78 Respiratory Rate 18 20 H Respiratory Effort Normal Blood Pressure 144/84 H Blood Pressure Mean 104 Pulse Ox 99 98 Oxygen Delivery Method Room Air 05/31/25 11:30 05/31/25 11:43 05/31/25 12:07 Temperature Temperature Source Pulse Rate 75 96 Respiratory Rate 17 12 Respiratory Effort Blood Pressure 154/108 H Blood Pressure Mean 123 Pulse Ox 99 99 99 Oxygen Delivery Method Room Air Room Air 05/31/25 12:15 05/31/25 13:02 05/31/25 13:15 Temperature Temperature Source Pulse Rate 74 76 75 Respiratory Rate 18 13 21 H Respiratory Effort Blood Pressure 121/75 H 144/83 H Blood Pressure Mean 88 101 Pulse Ox 96 96 94 Oxygen Delivery Method 05/31/25 13:30 05/31/25 13:45 05/31/25 14:00 Temperature Temperature Source Pulse Rate 75 74 75 Respiratory Rate 20 H 23 H 21 H Respiratory Effort Blood Pressure 151/82 H 144/80 H 134/76 H Blood Pressure Mean 101 99 93 Pulse Ox 93 93 93 Oxygen Delivery Method Weight Weight: 93 kg Body Mass Index (BMI) 27.0 Physical Exam Const alert, oriented x3, no apparent distress and average body habitus Constitutional Narrative: Elderly male, mildly fatigued appearing, hard of hearing, mentally sharp, sitting back fairly comfortably in bed, conversing normally, in no acute distress. General Appearance: cooperative and comfortable HEENT normocephalic, head/scalp atraumatic, nasal mucous membranes and turbinates normal and moist oral mucous membranes HEENT Narrative: Hard of hearing. Eyes PERRL, EOMs intact bilaterally and conjunctivae normal Neck full ROM Chest inspection of chest normal and palpation of chest normal Chest Narrative: Chest discomfort with deep breaths noted. Resp normal respiratory effort, normal air movement, no use of accessory muscles and clear to auscultation bilaterally Cardio regular rate, regular rhythm, no murmurs and peripheral pulses 2+ throughout GI normal to inspection, nondistended, normoactive bowel sounds, soft to palpation, non-tender and non-distended Back/Spine normal ROM Extremity normal to inspection, full ROM and no pedal edema Skin no rashes or lesions noted Psych mental status grossly normal Results Lab / Micro Data 05/31/25 11:13 05/31/25 11:13 Labs: Laboratory Results - last 24 hr 05/31/25 11:13: WBC 10.1, RBC 5.54, Hgb 15.3, Hct 44.8, MCV 80.9, MCH 27.6, MCHC 34.2, RDW Std Deviation 45.4 H, RDW Coeff of Lucia 15.5 H, Plt Count 300, MPV 10.7, Immature Gran % (Auto) 0.600, Neut % (Auto) 70.0, Lymph % (Auto) 17.4 L, Gonzales % (Auto) 9.6, Eos % (Auto) 2.0, Baso % (Auto) 0.4, Absolute Neuts (auto) 7.1, Absolute Lymphs (auto) 1.76, Nucleated RBC % 0, D-Dimer Quant (PE/DVT) 0.31, Sodium 135, Potassium 4.1, Chloride 100, Carbon Dioxide 20.0 L, Anion Gap 15, BUN 25 H, Creatinine 0.99, Estim Creat Clear Calc 66.13, Est GFR (MDRD) Non-Af 77, BUN/Creatinine Ratio 25.2 H, Glucose 164 H, Calcium 9.5, Troponin T High Sens 68 H* D, NT pro BNP II 121 05/31/25 13:14: Troponin T Hi Sens 2 Hr 59 H* Imaging Radiology Impression Chest X-Ray 05/31/25 12:00 IMPRESSION: Stable mild cardiomegaly with pulmonary vascular congestion and interstitial lung disease. Reading Location: [facility] Assessment & Plan Assessment/Plan (1) Chest pain: (2) Elevated troponin: PLAN: Plan Patient is an 80-year-old male who presented to [facility] ED on 05/31/2025 with chest pain. 1. Chest pain with elevated troponins – Admit under observation status to PCU. Cardiology consulted. Symptoms appear most consistent with pleuritic chest pain possibly secondary to recent viral URI with concern for pericarditis. Cannot rule out coronary disease but patient notably had stress test on 04/30 that was negative. Recent echo on 04/30 with EF 60%, mild concentric LV hypertrophy, mild to moderate aortic stenosis, otherwise was unremarkable. Hemodynamically stable on room air at rest in the ED. Troponin trend 68 > 59, third troponin pending. EKG with no ischemic changes and stable from previous. Chest x-ray with stable mild cardiomegaly with pulmonary vascular congestion and interstitial lung disease. BNP normal, and patient fairly dry appearing on exam. Respiratory PCR panel ordered. ESR and CRP ordered. Repeat limited echo ordered to evaluate for pericarditis. Continue home medications as below. Appreciate cardiology recommendations. Keep n.p.o. at midnight for consideration of heart cath tomorrow. Chronic medical conditions: – Nonobstructive CAD, paroxysmal A-fib, hypertension, hyperlipidemia, mild to moderate aortic stenosis: Follows with [place] [facility]. Recent hospitalization here for syncope on 04/29-04/30. Workup unremarkable including normal stress test and benign echo as above. In normal sinus rhythm and normotensive on admit. Continue home Eliquis, statin, nitrate, spironolactone, diltiazem and flecainide. Notably was recommended at last cardiology visit that patient decrease home dosing of carvedilol, so we will decrease to carvedilol 12.5 mg twice daily here. Will hold home Lasix for now as patient does appear somewhat hypovolemic on exam. – Type 2 diabetes mellitus: Blood glucose 164 on admit. Recent A1c 6.7% on 04/30. Will treat with reduced doses from home of Lantus 30 units in the morning and Humalog 10 units with meals plus sliding scale insulin, adjust as needed. – GERD: Continue home Pepcid. – BPH with obstructive symptoms: Continue home Flomax and finasteride. – CJ: Continue PAP therapy at night. DVT prophylaxis: Not indicated, on Eliquis CODE STATUS: Full code, verified Expected disposition: Home, 1 to 2 days Total clinical time spent by myself addressing the patient's medical issues, reviewing all the data, and collaborating with patient's care team: 76 minutes. Charges/Coding Visit Charges Inpatient E&M: 51148 Init Hosp L3
--- NOTE | 2025-05-31 15:00 | ECHOL_ITS ---
Reason For Study Reason For Study: CHEST PAIN- PERICARDITIS Procedure This was a limited 2D transthoracic echocardiogram. Exam performed portable in patient room. Left Ventricle Normal LV size. Mild concentric left ventricular hypertrophy. The left ventricular ejection fraction is 65 %. Stage I diastolic dysfunction with elevated left atrial filling pressures. Right Ventricle Normal right ventricle. Atria The left atrium is mildly enlarged. Normal right atrium. Mitral Valve Mild (1+) mitral valve insufficiency. Tricuspid Valve Trivial tricuspid valve insufficiency. Unable to estimate RV systolic pressure due to insufficient tricuspid regurgitant envelope. Aortic Valve Mildly calcified and thickened aortic valve leaflets. Restricted leaflet excursion. No Doppler available. Pulmonic Valve The pulmonic valve is not well visualized. Great Vessels Normal sized aortic root. Pericardium/Pleural No pericardial effusion. MMode/2D Measurements & Calculations LVIDd: 4.5 cm IVSd: 1.3 cm LAV(MOD- bp): 49.6 ml LVIDs: 2.7 cm LVPWd: 1.4 cm LAV(MOD- bp) Indexed: 22.8 ml/m2 RVDd: 3.7 cm FS: 39.6 % LAV(MOD- sp2): 36.8 ml LAV(MOD- sp4): 59.8 ml SV(MOD- sp4): 37.6 ml LVAd ap4: 22.1 cm2 LVAd ap2: 21.3 cm2 LVLd ap4: 7.1 cm LVLd ap2: 7.1 cm SI(MOD- sp4): 17.3 ml/m2 EDV(MOD-sp4): 58.9 ml EDV(MOD-sp2): 52.2 ml EDV(sp4-el): 58.8 ml EDV(sp2-el): 54.3 ml LVAs ap4: 12.6 cm2 LVAs ap2: 10.4 cm2 LVLs ap4: 6.7 cm LVLs ap2: 6.0 cm ESV(MOD-sp4): 21.3 ml ESV(MOD-sp2): 15.2 ml ESV(sp4-el): 20.1 ml ESV(sp2-el): 15.1 ml EF(MOD-sp4): 63.8 % EF(MOD-sp2): 70.8 % EF(sp4-el): 65.9 % SV(MOD-sp2): 37.0 ml SV(sp4-el): 38.7 ml LA A4 area: 22.2 cm2 SI(MOD-sp2): 17.0 ml/m2 LA dimension(2D): 4.7 cm TAPSE: 1.8 cm RA A4 area: 13.3 cm2 Time Measurements MV dec time: 0.23 sec Doppler Measurements & Calculations MV E max spenser: 76.8 cm/sec Lat Peak E' Spenser: 3.9 cm/sec Med Peak E' Spenser: 5.9 cm/sec MV A max spenser: 82.7 cm/sec E/E' lat: 19.7 E/E' med: 13.0 MV E/A: 0.93 MV dec slope: 336.5 cm/sec2 ECHO/Echo, Limited Study Interpretation Summary Mild concentric left ventricular hypertrophy. The left ventricular ejection fraction is 65 %. Stage I diastolic dysfunction with elevated left atrial filling pressures. The left atrium is mildly enlarged. Mild (1+) mitral valve insufficiency. Mildly calcified and thickened aortic valve leaflets. Restricted leaflet excurs ion. No Doppler available. Ordering Physician: Chilango Wheeler Performed By: Randi Villagran RDCS
[2025-05-31 15:39] LABS: CRP < 3.00 mg/L (0.0-3.0)
[2025-05-31 16:09] LABS: Troponin T High Sens 4 HR 53 ng/L (<=22)
--- OUTSIDE RECORDS SUMMARY | 2025-05-31 16:40 | XMS RPT_ITS | CCD ---
Author Organization [facility] Care Team Providers Care Chief Warden Name Role Phone Mathieu Virgen MD Primary Care Provider [facility], Keti Unavailable [facility], Kaitlyn Unavailable Dr. Mathieu Virgen Primary Care Provider Dr. Mathieu Virgen Referring Provider Roof ALIGNER TYPEWRITER, ALIGNER TYPEWRITER-C Sergey Solares Attending Provider Dr. Marvin Reeves Attending Provider Dr. Marvin Reeves Referring Provider Dr. Marvin Reeves Other Provider Yovani ARRIAZA, ALIGNER TYPEWRITER-Lonnie Neri Attending Provider Dr. Mathieu Virgen Primary Care Provider Dr. Mathieu Virgen Referring Provider Roof ALIGNER TYPEWRITER, ALIGNER TYPEWRITER-Lonnie Solares Attending Provider Dr. Marvin Reeves Attending Provider Mathieu Virgen MD Primary Care Provider [facility], Keti Unavailable [facility], Kaitlyn Unavailable Mathieu Virgen MD Primary Care Provider [facility], Keti Unavailable [facility], Kaitlyn Unavailable Dr. Mathieu Virgen Primary Care Provider Dr. Mathieu Virgen Referring Provider Roof ALIGNER TYPEWRITER, ALIGNER TYPEWRITERJosseline Solares Attending Provider Mathieu Virgen MD Primary Care Provider [facility], Keti Unavailable [facility], Kaitlyn Unavailable Dr. Mathieu Virgen Primary Care [...] Provider Dr. Mathieu Virgen Referring Provider Yovani ALIGNER TYPEWRITER, EZRA Neri Attending Provider [phone] Dr. Mathieu Virgen Primary Care Provider [facility], Keti Unavailable Mathieu Virgen MD Primary Care Provider MELVIN BINGHAM Attending Unavailable MATHIEU VIRGEN Primary Care Unavailable [facility], Keti Unavailable [facility], Kaitlyn Unavailable Devyn RAILWAY SIGNAL ELECTRICIAN.CBX OPERATOR, Denisha Unavailable Suppan RAILWAY SIGNAL ELECTRICIAN.CBX OPERATOR, Julianna A Unavailable [phone] Suppan RAILWAY SIGNAL ELECTRICIAN.CBX OPERATOR, Julianna A Unavailable Suppan RAILWAY SIGNAL ELECTRICIAN.CBX OPERATOR, Julianna A Unavailable Dr. Mathieu Virgen MD Primary Care Provider Lauri ALIGNER TYPEWRITER-C, Sergey Solares Attending Provider Lauri ALIGNER TYPEWRITER-C, Sergey Solares Referring Provider Dr. Mathieu Virgen MD Referring Provider Renaldo ALIGNER TYPEWRITER-CMegan Attending Provider Renaldo ALIGNER TYPEWRITER-CMegan Referring Provider Dr. Mani Esquivel DO Attending [...] Dr. Abraham Tierney DO Emergency Provider Lauri ALIGNER TYPEWRITER-CSergey Attending Provider Renaldo ALIGNER TYPEWRITER-CMegan Referring Provider Param SAMUEL, Dr. Aguilar Primary Care Provider Renaldo ALIGNER TYPEWRITER-CMegan Attending Provider Renaldo MELGARCMegan Other Provider Pj PEDRO, Dr. Wong Attending Provider Param SAMUEL, Dr. Aguilar Primary Care Provider Param SAMUEL, Dr. Aguilar Referring Provider Renaldo ALIGNER TYPEWRITER-CMegan Attending Provider Param SAMUEL, Dr. Aguilar Attending Provider Pj PEDRO, Dr. Wong Attending Provider [phone] Param SAMUEL, Dr. Aguilar Primary Care Provider [phone] Param SAMUEL, Dr. Aguilar Referring Provider [phone] Ally SAMUEL, Dr. Aceves Referring Provider Unavailab [...] HALL Attending Unavailable Eduardo Mg Attending Provider [place], Mathieu Primary Care Unavailable Megan Macario Referring Unavailable Megan Macario Attending Unavailable [place], Mathieu Primary Care Unavailable Narda Prather Consulting Unavailable Narda Prather Admitting Unavailable Ramiro Suárez Attending Unavailable Yola Canales Referring Unavailable [place], Mathieu Primary Care Unavailable Chilango Wheeler Attending Unavailable Narda Prather Consulting Unavailable Narda Prather Admitting Unavailable Yola Canales Referring Unavailable [place], Mathieu Primary Care Unavailable de Narda Araiza Consulting Unavailable Narda Prather Attending Unavailable Narda Prather Admitting Unavailable [place], Mathieu Primary Care Unavailable Sara Landry Admitting Unavailable Sara Landry Consulting Unavailable Miley Rodriguez Attending Unavailable Eduardo Sweet Referring Unavailable [place], Mathieu Primary Care Unavailable Eduardo Sweet Attending Unavailable [place], Mathieu Primary Care Unavailable Megan Macario Referring Unavailable Megan Macario Attending Unavailable Tierra Perdomo Attending Unavail able [place], Mathieu Primary Care Unavailable Tierra Perdomo Referring Unavail able [facility] Primary Care Unavailable [place] Attending Unavailable [place], Mathieu Primary Care Unavailable Tom Daley Attending Unavailable Tom Daley Referring Unavailable [place], Mathieu Primary Care Unavailable Megan Macario Attending Unavailable Megan Macario Referring Unavailable Julianna Hood Referring Unavailable [place], Mathieu Primary Care Unavailable Julianna Hood Attending Unavailable Qasim Senior Attending Unavailable [place], Mathieu Primary Care Unavailable [place], Mathieu Primary Care Unavailable Megan Macario Attending Unavailable Megan Macario Attending Unavailable [place], Mathieu Primary Care Unavailable [place], Mathieu Referring Unavailable Param, Mathieu Attending Unavailable [place], Mathieu Primary Care Unavailable [place], Mathieu Referring Unavailable Param, Mathieu Attending Unavailable [place], Mathieu Primary Care Unavailable Julianna Hood Attending Unavailable Suppan Julianna Referring Unavailable [place], Mathieu Primary Care Unavailable [place], Mathieu Primary Care Unavailable de Narda Araiza Consulting Unavailable de Narda Araiza Attending Unavailable Narda Prather Admitting Unavailable [place], Mathieu Primary Care Unavailable [place] Attending Unavailable Edgar Dee Attending Unavailable Chilango Wheeler Consulting Unavailable Chilango Wheeler Attending Unavailable Sara Landry Consulting Unavailable [place], Mathieu Primary Care Unavailable Sara Landry Admitting Unavailable Miley Rodriguez Attending Unavailable Miley Rodriguez Consulting Unavailable Marcus Hodge Attending Unavailable Ramiro Suárez Consulting Unavailable Ramiro Suárez Attending Unavailable Sara Landry Attending Unavailable Megan Macario Attending Unavailable [place], Mathieu Referring Unavailable [place], Mathieu Primary Care Unavailable Param, Mathieu Primary Care Unavailable Param, Mathieu Referring Unavailable Roof ALIGNER TYPEWRITER, Sergey Solarse Attending Unavailable [place], Mathieu Primary Care Unavailable [place], Mathieu Referring Unavailable Roof ALIGNER TYPEWRITER, Sergey Solares Attending Unavailable [place], Mathieu Referring Unavailable [place], Mathieu Primary Care Unavailable Megan Macario Attending Unavailable Eduardo Sweet Attending Unavailable Param, Mathieu Primary Care Unavailable [place], Mathieu Referring Unavailable Param, Mathieu Primary Care Unavailable Megan Macario Attending Unavailable [place], Mathieu Referring Unavailable Param, Mathieu Referring Unavailable Param, Mathieu Primary Care Unavailable Devante Ponce Attending Unavailable Param, Mathieu Primary Care Unavailable Megan Macario Referring Unavailable Marvin Reeves Attending Unavailable Param, Mathieu Primary Care Unavailable de Narda Araiza Referring Unavailable Devante Ponce Attending Unavailable [place], Mathieu Primary Care Unavailable Talia Lopez Attending Unavailable [place], Mathiue Primary Care Unavailable Megan Macario Referring Unavailable Megan Macario Consulting Unavailable Marvin Reeves Attending Unavailable [place], Mathieu Referring Unavailable [place], Mathieu Primary Care Unavailable Roof ALIGNER TYPEWRITER, Sergey Solares Attending Unavailable Param, Mathieu Referring Unavailable Param, Mathieu Primary Care Unavailable Roof ALIGNER TYPEWRITER, Sergey Solares Attending Unavailable [place], Mathieu Referring Unavailable Tierra Perdomo Attending Unavail able [place], Mathieu Primary Care Unavailable [place], Mathieu Primary Care Unavailable Mani Esquivel Attending Unavailable Mani Esquivel Attending Unavailable Param, Mathieu Primary Care Unavailable Reji Smith Attending Unavailable Param, Mathieu Primary Care Unavailable [place], Mathieu Primary Care Unavailable Megan Macario Attending Unavailable Megan Macario Referring Unavailable [facility] Unavailable Megan Macario Referring Unavailable Megan Macario Attending Unavailable [facility] Unavailable Roof ALIGNER TYPEWRITER, Sergey Solares Attending Unavailable Roof ALIGNER TYPEWRITER, Sergey Solares Referring Unavailable Abraham Tierney Attending Unavailable [facility] Unavailable [facility] Unavailable Roof ALIGNER TYPEWRITER, Sergey Solares Referring Unavailable Roof ALIGNER TYPEWRITER, Sergey Solares Attending Unavailable [facility] Referring Unavailable [facility] Attending Unavailable [facility] Unavailable Allergies Allergy Classification Reported Allergen(s) Allergy Type Date of Onset Reaction(s) Facility Penicillins (antibiotic) (2 sources) Amoxicillin Drug Allergy 05-11-2005 [facility] (20 sources) Amoxicillin; Translations: [AMOXICILLIN] Drug Allergy 05-11-2005 Rash [facility] (1 source) Amoxicillin Drug Allergy 04-29-2025 [facility] Repository Medications Current Medications Medication Drug Class(es) Dates Sig (Normalized) Sig (Original) [id number] 200 actuat albuterol 0.09 mg/actuat metered dose [...] Comment on above: Take 1 capsule by [facility] once daily. doxycycline hyclate 100 mg [...] th every 12 hours. Prescribed by outside supplier engineer Take 150 mg by mouth twice daily. [...] Comment on above: Take 2 tablets by [facility] twice daily before meals. Take 2 tablets by mo [facility] two times a day before meals. mupirocin [...] Start: 07-08-2024 take 1 capsule by mo [facility] every twelve hours tamsulosin (FLOMAX) 0.4 mg [...] Comment on above: Take 1 capsule by [facility] three times daily as needed [...] 0.9% 10 mL injection (DEFINITY) polymyxin b [id number] unt/ml / trimethoprim 1 mg/ml ophthalmic solution [...] 2024 1:00am September 23, 2024 4:56pm sennosides, senior living 8.6 mg oral tablet (20 sources) Start: [...] coronary artery; Translations: [Atherosclerotic heart disease of [place] coronary artery without angina pectoris] Onset: 06-06-2023 [...] sources) Long-term current use of anticoagulant; Translations: [long-term (current) use of anticoagulants] Onset: 02-15-2021 02-15-2021 [...] Onset: 07-23-2024 Episodic Other aftercare (1 source) long-term (current) use of anticoagulants; Translations: [Chronic anticoagulation] Onset: 02-15-2021 Episodic Other aftercare (1 source) 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, [address] BUN/CRE Normal 10-20 [facility] Comment on above: Result Comment: Canc elled via OM: Order cancelled - Patient discharged Performed By: #### L 100.0500, L500.2500 ####[facility] [address] [place], [address] Calcium Normal 7.6-11.0 [facility] Comment on above: Result Comment: Canc elled via OM: Order cancelled - Patient discharged Performed By: #### L 100.0500, L500.2500 ####[facility] [address] [place], [address] CL Normal 98-108 [facility] Comment on above: Result Comment: Canc elled via OM: Order cancelled - Patient discharged Performed By: #### L 100.0500, L500.2500 ####[facility] [address] [place], [address] CO2 Normal 21.0-32.0 [facility] Comment on above: Result Comment: Canc elled via OM: Order cancelled - Patient discharged Performed By: #### L 100.0500, L500.2500 ####[facility] [address] [place], [address] CREAT,SERUM Normal 0.70-1.20 [facility] Comment on above: Result Comment: Canc elled via OM: Order cancelled - Patient discharged Performed By: #### L 100.0500, L500.2500 ####[facility] [address] [place], [address] eGFR Normal >60 [facility] Comment on above: Result Comment: Canc elled via OM: Order cancelled - Patient discharged Performed By: #### L 100.0500, L500.2500 ####[facility] [address] [place], [address] GAP Normal 5-15 [facility] Comment on above: Result Comment: Canc elled via OM: Order cancelled - Patient discharged Performed By: #### L 100.0500, L500.2500 ####[facility] [address] [place], [address] GLU Normal 70-99 [facility] Comment on above: Result Comment: Canc elled via OM: Order cancelled - Patient discharged Performed By: #### L 100.0500, L500.2500 ####[facility] [address] [place], [address] Potassium Normal 3.3-5.1 [facility] Comment on above: Result Comment: Canc elled via OM: Order cancelled - Patient discharged Performed By: #### L 100.0500, L500.2500 ####[facility] [address] [place], [address] Basic Metabolic Profile (BMP) Normal 133-145 [facility] Comment on above: Result Comment: Canc elled via OM: Order cancelled - Patient discharged Performed By: #### L 100.0500, L500.2500 ####[facility] [address] [place], [address] CBC-Complete Blood Cnt No Di ffon 05-02-2025 HCT Normal 40-54 [facility] Comment on above: Result Comment: Canc elled via OM: Order cancelled - Patient discharged Performed By: #### L 100.0500, L500.2500 ####[facility] [address] [place], [address] HGB Normal 13.0-16.5 [facility] Comment on above: Result Comment: Canc elled via OM: Order cancelled - Patient discharged Performed By: #### L 100.0500, L500.2500 ####[facility] [address] [place], [address] MCH Normal 27.0-32.0 [facility] Comment on above: Result Comment: Canc elled via OM: Order cancelled - Patient discharged Performed By: #### L 100.0500, L500.2500 ####[facility] [address] [place], [address] MCHC Normal 32-36 [facility] Comment on above: Result Comment: Canc elled via OM: Order cancelled - Patient discharged Performed By: #### L 100.0500, L500.2500 ####[facility] [address] [place], [address] MCV Normal 80-94 [facility] Comment on above: Result Comment: Canc elled via OM: Order cancelled - Patient discharged Performed By: #### L 100.0500, L500.2500 ####[facility] [address] [place], [address] PLT Normal 150-450 [facility] Comment on above: Result Comment: Canc elled via OM: Order cancelled - Patient discharged Performed By: #### L 100.0500, L500.2500 ####[facility] [address] [place], [address] RBC Normal 4.6-6.2 [facility] Comment on above: Result Comment: Canc elled via OM: Order cancelled - Patient discharged Performed By: #### L 100.0500, L500.2500 ####[facility] [address] [place], [address] RDW CV Normal 11.6-14.6 [facility] Comment on above: Result Comment: Canc elled via OM: Order cancelled - Patient discharged Performed By: #### L 100.0500, L500.2500 ####[facility] [address] [place], [address] RDW SD Normal 35.1-43.9 [facility] Comment on above: Result Comment: Canc elled via OM: Order cancelled - Patient discharged Performed By: #### L 100.0500, L500.2500 ####[facility] [address] [place], [address] WBC Normal 4.4-11.0 [facility] Comment on above: Result Comment: Canc elled via OM: Order cancelled - Patient discharged Performed By: #### L 100.0500, L500.2500 ####[facility] [address] [place], [address] 12 Lead EKGon 04-30-2025 12 Lead EKG Normal [facility] Absolute lymphocyte countOrd ered By: Narda Araiza on 04-30-2025 Lymphocytes Auto (Unsp spec) [#/Vol] 1.56 10*3/uL 0.83-4.51 [facility] Absolute neutrophil countOrd ered By: Narda Araiza on 04-30-2025 Neutrophils (Bld) [#/Vol] 5.7 10*3/uL 2.0-7.7 [facility] Anion gap in Serum or Plasma Ordered By: Narda Araiza on 04-30-2025 Anion gap [Moles/Vol] 11 mmol/L 5-15 [facility] Automated lymphocyte count a s percentage of total leukocytesOrdered By: Narda Araiza on 04-30-2025 Lymphocytes/100 WBC Auto (Unsp spec) 17.7 % Low 19-41 [facility] BUN/creatinine ratioOrdered By: Narda Araiza on 04-30-2025 Urea nitrogen/Creatinine [Mass ratio] 21.9 mg/mg High 10-20 [facility] Basophil percentageOrdered B y: Narda Araiza on 04-30-2025 Basophils/100 WBC (Bld) 0.6 % 0-1 [facility] Bedside Glucoseon 04-30-2025 FINGERSTICK GLU 191 mg/dL High 74-106 [facility] Comment on above: Result Comment: URSULA GEMENT OF PATIENT CARE PER NURSING PROTOCOL Performed By: #### L 501.080 ####[facility] [address] [place], [address] FINGERSTICK GLU 338 mg/dL High 74-106 [facility] Comment on above: Result Comment: URSULA GEMENT OF PATIENT CARE PER NURSING PROTOCOL Performed By: #### L 501.080 ####[facility] [address] [place], [address] FINGERSTICK GLU 136 mg/dL High 74-106 [facility] Comment on above: Result Comment: URSULA GEMENT OF PATIENT CARE PER NURSING PROTOCOL Performed By: #### L 501.080 ####[facility] [address] [place], [address] FINGERSTICK GLU 177 mg/dL High 74-106 [facility] Comment on above: Result Comment: URSULA GEMENT OF PATIENT CARE PER NURSING PROTOCOL Performed By: #### L 501.080 ####[facility] [address] [place], [address] Bilirubin Test strip Ql (U)O rdered By: Narda Araiza on 04-30-2025 Bilirubin Ql (U) Negative Negative [facility] Bilirubin, totalOrdered By: Narda Araiza on 04-30-2025 Bilirubin [Mass/Vol] 0.34 mg/dL 0.00-1.30 [facility] CBC W/Diff, Automatedon 04-17 Absolute Lymph 1.56 X10 3/uL Normal 0.83-4.51 [facility] Comment on above: Performed By: #### L 501.9985, L100.0100, L500.4050, L501.2300, L501.9520 ####[facility] [address] [place], [address] Absolute Neut 5.7 X10 3/uL Normal 2.0-7.7 [facility] Comment on above: Performed By: #### L 501.9985, L100.0100, L500.4050, L501.2300, L501.9520 ####[facility] [address] [place], [address] Basophils/100 WBC (Bld) 0.6 % Normal 0-1 [facility] Comment on above: Performed By: #### L 501.9985, L100.0100, L500.4050, L501.2300, L501.9520 ####[facility] [address] [place], [address] Eosinophils/100 WBC (Bld) 4.2 % Normal 0-5 [facility] Comment on above: Performed By: #### L 501.9985, L100.0100, L500.4050, L501.2300, L501.9520 ####[facility] [address] [place], [address] Erythrocyte distribution width (RBC) [Ratio] 15.1 % High 11.6-14.6 [facility] Comment on above: Performed By: #### L 501.9985, L100.0100, L500.4050, L501.2300, L501.9520 ####[facility] [address] [place], [address] Hematocrit (Bld) [Volume fraction] 40.6 % Normal 40-54 [facility] Comment on above: Performed By: #### L 501.9985, L100.0100, L500.4050, L501.2300, L501.9520 ####[facility] [address] [place], [address] Hemoglobin (Bld) [Mass/Vol] 13.4 g/dL Normal 13.0-16. 5 [facility] Comment on above: Performed By: #### L 501.9985, L100.0100, L500.4050, L501.2300, L501.9520 ####[facility] [address] [place], [address] IG% 0.600 Normal 0.0-0.9 [facility] Comment on above: Result Comment: IG% - Immature Granulocytes (promyelocytes, myelocytes andmetamyelocytes) > 1% indicates that a LEFT SHIFT is Present. Performed By: #### L 501.9985, L100.0100, L500.4050, L501.2300, L501.9520 ####[facility] [address] [place], [address] Lymphocytes/100 WBC (Bld) 17.7 % Low 19-41 [facility] Comment on above: Performed By: #### L 501.9985, L100.0100, L500.4050, L501.2300, L501.9520 ####[facility] [address] [place], [address] MCH (RBC) [Entitic mass] 27.1 pg Normal 27.0-32.0 [facility] Comment on above: Performed By: #### L 501.9985, L100.0100, L500.4050, L501.2300, L501.9520 ####[facility] [address] [place], [address] MCHC (RBC) [Mass/Vol] 33.0 g/dL Normal 32-36 [facility] Comment on above: Performed By: #### L 501.9985, L100.0100, L500.4050, L501.2300, L501.9520 ####[facility] [address] [place], [address] MCV (RBC) [Entitic vol] 82.2 fL Normal 80-94 [facility] Comment on above: Performed By: #### L 501.9985, L100.0100, L500.4050, L501.2300, L501.9520 ####[facility] [address] [place], [address] Monocytes/100 WBC (Bld) 11.7 % High 0-10 [facility] Comment on above: Performed By: #### L 501.9985, L100.0100, L500.4050, L501.2300, L501.9520 ####[facility] [address] [place], [address] Neutrophils/100 WBC (Bld) 65.2 % Normal 47-70 [facility] Comment on above: Performed By: #### L 501.9985, L100.0100, L500.4050, L501.2300, L501.9520 ####[facility] [address] [place], [address] Nucleated RBC (Bld) [#/Vol] 0 10*3/uL Normal 0-5 [facility] Comment on above: Performed By: #### L 501.9985, L100.0100, L500.4050, L501.2300, L501.9520 ####[facility] [address] [place], [address] Platelet mean volume (Bld) [Entitic vol] 10.5 fL Normal 6.2-12.0 [facility] Comment on above: Performed By: #### L 501.9985, L100.0100, L500.4050, L501.2300, L501.9520 ####[facility] [address] [place], [address] Platelets (Bld) [#/Vol] 284 10*3/uL Normal 150-450 [facility] Comment on above: Performed By: #### L 501.9985, L100.0100, L500.4050, L501.2300, L501.9520 ####[facility] [address] [place], [address] RBC (Bld) [#/Vol] 4.94 10*6/uL Normal 4.6-6.2 [facility] Comment on above: Performed By: #### L 501.9985, L100.0100, L500.4050, L501.2300, L501.9520 ####[facility] [address] [place], [address] RDW SD 45.4 fl High 35.1-43.9 [facility] Comment on above: Performed By: #### L 501.9985, L100.0100, L500.4050, L501.2300, L501.9520 ####[facility] [address] [place], [address] WBC (Bld) [#/Vol] 8.8 10*3/uL Normal 4.4-11.0 [facility] Comment on above: Performed By: #### L 501.9985, L100.0100, L500.4050, L501.2300, L501.9520 ####[facility] [address] [place], [address] Carbon dioxide, total [Moles /volume] in Central venous bloodOrdered By: Narda Araiza on 04-30-2025 CO2 [Moles/Vol] 21.9 mmol/L 21.0-32.0 [facility] Cardiovascular stress test r eportOrdered By: Edgar Dee on 04-30-2025 Study report [facility] Cardiovascular Services [address] [place] [address] MR#: [id number] Acct: [id number] Name: FAISAL ALARCON Rep #: [id number] : 1945 80 From: Edgar Dee MD Primary Care: Dr. Matiheu Virgen MD Status : ADM CARLOS Referring [...] Dictated: 04/30/25 1034 Date Transcribed: 04/30/25 103 Bi Data Architect: Signed [facility] Chloride assayOrdered By: Oracio Araiza on 04-30-2025 Chloride [Moles/Vol] 106 mmol/L 98-108 [facility] Comprehensive Metabolic Prof ilon 04-30-2025 Albumin [Mass/Vol] 3.4 g/dL Normal 3.4-4.8 [facility] Comment on above: Performed By: #### L 501.9985, L100.0100, L500.4050, L501.2300, L501.9520 ####[facility] [address] [place], [address] Albumin/Globulin [Mass ratio] 1.2 {ratio} Normal 0.9-2.4 [facility] Comment on above: Performed By: #### L 501.9985, L100.0100, L500.4050, L501.2300, L501.9520 ####[facility] [address] [place], [address] ALK PHOS 103 U/L Normal 40-129 [facility] Comment on above: Performed By: #### L 501.9985, L100.0100, L500.4050, L501.2300, L501.9520 ####[facility] [address] [place], [address] ALT [Catalytic activity/Vol] 11 U/L Normal <=46 [facility] Comment on above: Performed By: #### L 501.9985, L100.0100, L500.4050, L501.2300, L501.9520 ####[facility] [address] [place], [address] AST [Catalytic activity/Vol] 13 U/L Normal <=37 [facility] Comment on above: Performed By: #### L 501.9985, L100.0100, L500.4050, L501.2300, L501.9520 ####[facility] [address] [place], [address] Bilirubin [Mass/Vol] 0.34 mg/dL Normal 0.00-1.30 [facility] Comment on above: Performed By: #### L 501.9985, L100.0100, L500.4050, L501.2300, L501.9520 ####[facility] [address] [place], [address] BUN/CRE 21.9 RATIO High 10-20 [facility] Comment on above: Performed By: #### L 501.9985, L100.0100, L500.4050, L501.2300, L501.9520 ####[facility] [address] [place], [address] Calcium [Mass/Vol] 8.9 mg/dL Normal 7.6-11.0 [facility] Comment on above: Performed By: #### L 501.9985, L100.0100, L500.4050, L501.2300, L501.9520 ####[facility] [address] [place], [address] Chloride [Moles/Vol] 106 mmol/L Normal 98-108 [facility] Comment on above: Performed By: #### L 501.9985, L100.0100, L500.4050, L501.2300, L501.9520 ####[facility] [address] [place], [address] CO2 [Moles/Vol] 21.9 mmol/L Normal 21.0-32.0 [facility] Comment on above: Performed By: #### L 501.9985, L100.0100, L500.4050, L501.2300, L501.9520 ####[facility] [address] [place], [address] Creatinine [Mass/Vol] 0.83 mg/dL Normal 0.70-1.20 [facility] Comment on above: Performed By: #### L 501.9985, L100.0100, L500.4050, L501.2300, L501.9520 ####[facility] [address] [place], [address] ECRCL 92.43 ml/min Normal 50-250 [facility] Comment on above: Performed By: #### L 501.9985, L100.0100, L500.4050, L501.2300, L501.9520 ####[facility] [address] [place], [address] GAP 11 Normal 5-15 [facility] Comment on above: Performed By: #### L 501.9985, L100.0100, L500.4050, L501.2300, L501.9520 ####[facility] [address] [place], [address] GFR/1.73 sq M.predicted among non-blacks MDRD (S/P/Bld) [Vol rate/Area] 88 mL/min/{1.73_m2} Normal >60 [facility] Comment on above: Result Comment: mL/m in/1.73m2 CKD-EPI Creatinine Equation (2020) Performed By: #### L 501.9985, L100.0100, L500.4050, L501.2300, L501.9520 ####[facility] [address] [place], [address] Globulin (S) [Mass/Vol] 2.8 g/dL Normal 2.2-4.2 [facility] Comment on above: Performed By: #### L 501.9985, L100.0100, L500.4050, L501.2300, L501.9520 ####[facility] [address] [place], [address] Glucose [Mass/Vol] 102 mg/dL High 70-99 [facility] Comment on above: Performed By: #### L 501.9985, L100.0100, L500.4050, L501.2300, L501.9520 ####[facility] [address] [place], [address] Potassium [Moles/Vol] 4.2 mmol/L Normal 3.3-5.1 [facility] Comment on above: Performed By: #### L 501.9985, L100.0100, L500.4050, L501.2300, L501.9520 ####[facility] [address] [place], [address] Sodium [Moles/Vol] 138 mmol/L Normal 133-145 [facility] Comment on above: Performed By: #### L 501.9985, L100.0100, L500.4050, L501.2300, L501.9520 ####[facility] [address] [place], [address] T PROT 6.2 g/dL Normal 5.9-8.4 [facility] Comment on above: Performed By: #### L 501.9985, L100.0100, L500.4050, L501.2300, L501.9520 ####[facility] [address] [place], [address] Urea nitrogen [Mass/Vol] 18 mg/dL Normal 4-19 [facility] Comment on above: Performed By: #### L 501.9985, L100.0100, L500.4050, L501.2300, L501.9520 ####[facility] [address] [place], [address] Discharge Instructionon 04-[address] [facility] Echocardiogram study reportO rdered By: Edgar Dee on 04-30-2025 Study report [facility] Cardi[facility] Services [address] [place] [address] Echo Complete 04/30/2505 MR#: [id number] Acct: [id number] Name: FAISAL ALARCON Rep #:[id number] : 1945 80 From: Edgar Brannon Attending Dr: Dr. Chilango Wheeler, DO Status: ADM CARLOS Ordering Dr: Narda Prather DO Date: 04/29/25 Location: [facility] Sex: M C Admitted: 04/29/25 Reason [...] ~ Date Dictated: 04/30/25904 Date Transcribed: 04/30/251127 Bi Data Architect: Signed [facility] Eosinophil percentageOrdered By: Narda Araiza on 04-30-2025 Eosinophils/100 WBC (Bld) 4.2 % 0-5 [facility] Erythrocyte distribution wid th ratioOrdered By: Narda Araiza on 04-30-2025 Erythrocyte distribution width (RBC) [Ratio] 15.1 % High 11.6-14.6 [facility] Erythrocyte distribution wid th standard deviationOrdered By: Narda Araiza on 04-30-2025 Erythrocyte distribution width (RBC) [Ratio] 45.4 fl High 35.1-43.9 [facility] Glomerular filtration rate ( GFR) estimation/1.73 sq m using serum, plasma, or whole bOrdered By: Narda Araiza on 04-30-2025 GFR/1.73 sq M.predicted among non-blacks MDRD (S/P/Bld) [Vol rate/Area] 88 mL/min/{1.73_m2} >60 [facility] Comment on above: mL/min/1.73m2 CKD-EP I Creatinine Equation (2020) Glucose measurement at bedsi deOrdered By: Chilango Wheeler on 04-30-2025 Glucose [Mass/Vol] 191 mg/dL High 74-106 [facility] Comment on above: MANAGEMENT OF PATIEN T CARE PER NURSING PROTOCOL Hematocrit Auto (Bld) [Volum e fraction]Ordered By: Narda Araiza on 04-30-2025 Hematocrit (Bld) [Volume fraction] 40.6 % 40-54 [facility] Hemoglobin A1con 04-30-2025 HbA1c (Bld) [Mass fraction] 6.7 % High <=5.6 [facility] Comment on above: Result Comment: Norm al < 5.7 % Prediabetic 5.7 - 6.4 % Diabetic >or= 6.5 % Please note range changes. Performed By: #### L 501.9985, L100.0100, L500.4050, L501.2300, L501.9520 ####[facility] [address] [place], [address] Hemoglobin A1c percentageOrd ered By: Narda Araiza on 04-30-2025 HbA1c (Bld) [Mass fraction] 6.7 % High <5.7 [facility] Comment on above: Normal < 5.7 % Predi abetic 5.7 - 6.4 % Diabetic >or= 6.5 % Please note range changes. Hemoglobin measurementOrdere d By: Narda Araiza on 04-30-2025 Hemoglobin (Bld) [Mass/Vol] 13.4 g/dL 13.0-16. 5 [facility] Immature granulocytes/100 WB C Auto (Bld)Ordered By: Narda Araiza on 04-30-2025 Immature granulocytes/100 WBC (Bld) 0.600 % 0.0-0.9 [facility] Comment on above: IG% - Immature Granu locytes (promyelocytes, myelocytes and metamyelocytes) > 1% indicates that a LEFT SHIFT is Present. Ketones Test strip Ql (U)Ord ered By: Narda Araiza on 04-30-2025 Ketones Ql (U) Negative Negative [facility] Laboratory - Chemistry and C hemistry - challengeOrdered By: Narda Araiza on 04-30-2025 AST [Catalytic activity/Vol] 13 U/L <38 [facility] MCV (mean corpuscular volume ) determinationOrdered By: Narda Araiza on 04-30-2025 MCV (RBC) [Entitic vol] 82.2 fL 80-94 [facility] Mean corpuscular hemoglobin (MCH) determinationOrdered By: Narda Araiza on 04-30-2025 MCH (RBC) [Entitic mass] 27.1 pg 27.0-32.0 [facility] Mean corpuscular hemoglobin concentration (MCHC) determinationOrdered By: Narda Araiza on 04-30-2025 MCHC (RBC) [Mass/Vol] 33.0 g/dL 32-36 [facility] Mean platelet volume determi nationOrdered By: Narda Araiza on 04-30-2025 Platelet mean volume (Bld) [Entitic vol] 10.5 fL 6.2-12.0 [facility] Microscopic analysis of urin e for red blood cells (RBC)Ordered By: Narda Araiza on 04-30-2025 Microscopic analysis of urine for red blood cells (RBC) 0 SEEN /hpf 0-5 [facility] Monocyte percentageOrdered B y: Narda Araiza on 04-30-2025 Monocytes/100 WBC (Bld) 11.7 % High 0-10 [facility] Mucus LM Ql (Urine sed)Order ed By: Narda Araiza on 04-30-2025 Mucus Ql (Urine sed) 0 SEEN /hpf [facility] Neutrophil percentageOrdered By: Narda Araiza on 04-30-2025 Neutrophils/100 WBC (Bld) 65.2 % 47-70 [facility] Nitrite Test strip Ql (U)Ord ered By: Narda Araiza on 04-30-2025 Nitrite Ql (U) Negative Negative [facility] Nucleated red blood cell per centageOrdered By: Narda Araiza on 04-30-2025 Nucleated RBC/100 WBC (Bld) [Ratio] 0 % 0-5 [facility] Phosphoruson 04-30-2025 Phosphate [Mass/Vol] 3.0 mg/dL Normal 2.7-4.5 [facility] Comment on above: Performed By: #### L 501.9985, L100.0100, L500.4050, L501.2300, L501.9520 ####[facility] [address] [place], [address] Platelet countOrdered By: Oracio Araiza on 04-30-2025 Platelets (Bld) [#/Vol] 284 10*3/uL 150-450 [facility] Potassium measurement (mass/ volume)Ordered By: Narda Araiza on 04-30-2025 Potassium (Unsp spec) [Mass/Vol] 4.2 mmol/L 3.3-5.1 [facility] Protein Test strip Ql (U)Ord ered By: Narda Araiza on 04-30-2025 Protein Ql (U) 15 mg/dl High Negative [facility] RBC Auto (Bld) [#/Vol]Ordere d By: Narda Araiza on 04-30-2025 RBC (Bld) [#/Vol] 4.94 10*6/uL 4.6-6.2 [facility] Serum creatinine measurement (mass/volume)Ordered By: Narda Araiza on 04-30-2025 Creatinine [Mass/Vol] 0.83 mg/dL 0.70-1.20 [facility] Serum globulin measurementOr dered By: Narda Araiza on 04-30-2025 Globulin (S) [Mass/Vol] 2.8 g/dL 2.2-4.2 [facility] Serum glucose measurement (m ass/volume)Ordered By: Narda Araiza on 04-30-2025 Glucose [Mass/Vol] 102 mg/dL High 70-99 [facility] Serum or plasma alanine cottrell otransferase (ALT) measurementOrdered By: Narda Araiza on 04-30-2025 ALT [Catalytic activity/Vol] 11 U/L <47 [facility] Serum or plasma albumin nahomy urement (mass/volume)Ordered By: Narda Araiza on 04-30-2025 Albumin [Mass/Vol] 3.4 g/dL 3.4-4.8 [facility] Serum or plasma albumin/glob ulin mass ratioOrdered By: Narda Araiza on 04-30-2025 Albumin/Globulin [Mass ratio] 1.2 {ratio} 0.9-2.4 [facility] Serum or plasma alkaline ahsan sphatase measurementOrdered By: Narda Araiza on 04-30-2025 ALP [Catalytic activity/Vol] 103 U/L 40-129 [facility] Serum or plasma calcium nahomy urement (mass/volume)Ordered By: Narda Araiza on 04-30-2025 Calcium [Mass/Vol] 8.9 mg/dL 7.6-11.0 [facility] Serum or plasma urea nitroge n measurement (mass/volume)Ordered By: Narda Araiza on 04-30-2025 Urea nitrogen [Mass/Vol] 18 mg/dL 4-19 [facility] Sodium levelOrdered By: Chaz Araiza on 04-30-2025 Sodium [Moles/Vol] 138 mmol/L 133-145 [facility] Squamous epithelial cells de tection in urine sediment by light microscopyOrdered By: Narda Araiza on 04-30-2025 Epithelial cells.squamous LM Ql (Urine sed) 0-5 SEEN /hpf 0-5 [facility] Stress Reporton 04-30-2025 Stress Report Normal [facility] TSH DL <= 0.005 mIU/L QnOrde red By: Narda Araiza on 04-30-2025 TSH Qn 1.530 uIU/mL 0.300-4.200 [facility] Thyroid Stim Hormone (TSH)on 04-30-2025 TSH 1.530 uIU/mL Normal 0.300-4.200 [facility] Comment on above: Performed By: #### L 003.0176, L100.0100, L500.4050, L501.2300, L501.9520 ####[facility] [address] [place], [address] Total proteinOrdered By: Ki Araiza on 04-30-2025 Protein [Mass/Vol] 6.2 g/dL 5.9-8.4 [facility] Urinalysis, Completeon 04-30 BACTERIA 1+ /hpf Normal None Seen [facility] Comment on above: Order Comment: CLEAN CATCH Performed By: #### L 400.0001 ####[facility] [address] [place], [address] EPI,SQUAMOUS 0-5 SEEN Normal 0-5 [facility] Comment on above: Order Comment: CLEAN CATCH Performed By: #### L 400.0001 ####[facility] [address] [place], [address] WBC 10-25 SEEN Normal 0-5 [facility] Comment on above: Order Comment: CLEAN CATCH Performed By: #### L 400.0001 ####[facility] [address] [place], [address] Mucus Ql (Urine sed) 0 SEEN Normal [facility] Comment on above: Order Comment: CLEAN CATCH Performed By: #### L 400.0001 ####[facility] [address] [place], [address] RBC 0 SEEN Normal 0-5 [facility] Comment on above: Order Comment: CLEAN CATCH Performed By: #### L 400.0001 ####[facility] [address] [place], [address] Urine clarityOrdered By: Ki Araiza on 04-30-2025 Clarity (U) Clear Clear [facility] Urine color determinationOrd ered By: Narda Araiza on 04-30-2025 Color (U) Straw Yellow [facility] Urine glucose detectionOrder ed By: Narda Araiza on 04-30-2025 Glucose Ql (U) 1000 mg/dl High Normal [facility] Urine leukocyte esterase det ection by dipstickOrdered By: Narda Araiza on 04-30-2025 Leukocyte esterase Test strip Ql (U) 25 /ul High Negative [facility] Urine pHOrdered By: Narda gabriel on 04-30-2025 pH (U) 6.0 [pH] 5.0 - 8.0 [facility] Urine sediment bacteria coun t by microscopy (number/high power field)Ordered By: Narda Araiza on 04-30-2025 Bacteria LM.HPF (Urine sed) [#/Area] 1 /[HPF] None Seen [facility] Urine specific gravity measu rementOrdered By: Narda Araiza on 04-30-2025 Specific gravity (U) [Rel density] 1.015 1.002-1.030 [facility] Urine urobilinogen measureme ntOrdered By: Narda Araiza on 04-30-2025 Urobilinogen Ql (U) Normal mg/dl Normal [facility] White blood cell (WBC) count Ordered By: Narda Araiza on 04-30-2025 WBC (Bld) [#/Vol] 8.8 10*3/uL 4.4-11.0 [facility] White blood cell countOrdere d By: Narda Araiza on 04-30-2025 White blood cell count 10-25 SEEN /hpf 0-5 [facility] Absolute lymphocyte countOrd ered By: Yola Canales on 04-29-2025 Lymphocytes Auto (Unsp spec) [#/Vol] 1.49 10*3/uL 0.83-4.51 [facility] Absolute neutrophil countOrd ered By: Yola Canales on 04-29-2025 Neutrophils (Bld) [#/Vol] 7.3 10*3/uL 2.0-7.7 [facility] Anion gap in Serum or Plasma Ordered By: Yola Canales on 04-29-2025 Anion gap [Moles/Vol] 15 mmol/L 5-15 [facility] Automated blood erythrocyte countOrdered By: Yola Canales on 04-29-2025 RBC (Bld) [#/Vol] 5.23 10*6/uL Normal 4.6-6.2 [facility] Comment on above: Performed By: #### L 500.2500, L501.5200, L501.4021, L100.0100 ####[facility] [address] [place], [address] Automated blood hematocrit ( percentage)Ordered By: Yola Canales on 04-29-2025 Hematocrit (Bld) [Volume fraction] 42.8 % Normal 40-54 [facility] Comment on above: Performed By: #### L 500.2500, L501.5200, L501.4021, L100.0100 ####[facility] [address] [place], [address] Automated lymphocyte count a s percentage of total leukocytesOrdered By: Yola Canales on 04-29-2025 Lymphocytes/100 WBC Auto (Unsp spec) 14.5 % Low 19-41 [facility] BUN/creatinine ratioOrdered By: Yola Canales on 04-29-2025 Urea nitrogen/Creatinine [Mass ratio] 19.8 mg/mg 10- [facility] Basic Metabolic Profile (BMP )on 04-29-2025 BUN/CRE 19.8 RATIO Normal - [facility] Comment on above: Performed By: #### L 500.2500, L501.5200, L501.4021, L100.0100 ####[facility] [address] [place], [address] ECRCL 64.29 ml/min Normal 50-250 [facility] Comment on above: Performed By: #### L 500.2500, L501.5200, L501.4021, L100.0100 ####[facility] [address] [place], [address] GAP 15 Normal 5-15 [facility] Comment on above: Performed By: #### L 500.2500, L501.5200, L501.4021, L100.0100 ####[facility] [address] [place], [address] Potassium [Moles/Vol] 4.1 mmol/L Normal 3.3-5.1 [facility] Comment on above: Performed By: #### L 500.2500, L501.5200, L501.4021, L100.0100 ####[facility] [address] [place], [address] Basophil percentageOrdered B y: Yola Canales on 04-29-2025 Basophils/100 WBC (Bld) 0.4 % Normal 0-1 [facility] Comment on above: Performed By: #### L 500.2500, L501.5200, L501.4021, L100.0100 ####[facility] [address] [place], [address] Bedside Glucoseon 04-29-2025 FINGERSTICK GLU 164 mg/dL High 74-106 [facility] Comment on above: Result Comment: URSULA CHAMBERS OF PATIENT CARE PER NURSING PROTOCOL Performed By: #### L 501.080 ####[facility] [address] [place], [address] CBC W/Diff, Automatedon 04-17 Absolute Lymph 1.49 X10 3/uL Normal 0.83-4.51 [facility] Comment on above: Performed By: #### L 500.2500, L501.5200, L501.4021, L100.0100 ####[facility] [address] [place], [address] Absolute Neut 7.3 X10 3/uL Normal 2.0-7.7 [facility] Comment on above: Performed By: #### L 500.2500, L501.5200, L501.4021, L100.0100 ####[facility] [address] [place], [address] IG% 0.400 Normal 0.0-0.9 [facility] Comment on above: Result Comment: IG% - Immature Granulocytes (promyelocytes, myelocytes andmetamyelocytes) > 1% indicates that a LEFT SHIFT is Present. Performed By: #### L 500.2500, L501.5200, L501.4021, L100.0100 ####[facility] [address] [place], [address] Lymphocytes/100 WBC (Bld) 14.5 % Low 19-41 [facility] Comment on above: Performed By: #### L 500.2500, L501.5200, L501.4021, L100.0100 ####[facility] [address] [place], [address] Nucleated RBC (Bld) [#/Vol] 0 10*3/uL Normal 0-5 [facility] Comment on above: Performed By: #### L 500.2500, L501.5200, L501.4021, L100.0100 ####[facility] [address] [place], [address] RDW SD 44.9 fl High 35.1-43.9 [facility] Comment on above: Performed By: #### L 500.2500, L501.5200, L501.4021, L100.0100 ####[facility] [address] [place], [address] CTA Chest W/WO Contraston CTA Chest W/WO Contrast Normal [facility] Carbon dioxide, total [Moles /volume] in Central venous bloodOrdered By: Yola Canales on 04-29-2025 CO2 [Moles/Vol] 19.9 mmol/L Low 21.0-32.0 [facility] Comment on above: Performed By: #### L 500.2500, L501.5200, L501.4021, L100.0100 ####[facility] [address] [place], [address] Carotid Duplex Ultrasoundon 04-29-2025 Carotid Duplex Ultrasound Normal [facility] Chloride assayOrdered By: Arnulfo Canales on 04-29-2025 Chloride [Moles/Vol] 100 mmol/L Normal 98-108 [facility] Comment on above: Performed By: #### L 500.2500, L501.5200, L501.4021, L100.0100 ####[facility] [address] [place], [address] Echo Completeon 04-29-2025 Echo Complete Normal [facility] Emergency Department Summary on 04-29-2025 Emergency Department Summary Normal [facility] Eosinophil percentageOrdered By: Yola Canales on 04-29-2025 Eosinophils/100 WBC (Bld) 2.8 % Normal 0-5 [facility] Comment on above: Performed By: #### L 500.2500, L501.5200, L501.4021, L100.0100 ####[facility] [address] [place], [place], [address] Erythrocyte distribution wid th ratioOrdered By: Yola Canales on 04-29-2025 Erythrocyte distribution width (RBC) [Ratio] 14.9 % High 11.6-14.6 [facility] Comment on above: Performed By: #### L 500.2500, L501.5200, L501.4021, L100.0100 ####[facility] [address] [place], [place], [address] Erythrocyte distribution wid th standard deviationOrdered By: Yola Canales on 04-29-2025 Erythrocyte distribution width (RBC) [Ratio] 44.9 fl High 35.1-43.9 [facility] Glomerular filtration rate ( GFR) estimation/1.73 sq m using serum, plasma, or whole bOrdered By: Yola Canales on 04-29-2025 GFR/1.73 sq M.predicted among non-blacks MDRD (S/P/Bld) [Vol rate/Area] 61 mL/min/{1.73_m2} Normal >60 [facility] Comment on above: mL/min/1.73m2 CKD-EP I Creatinine Equation (2020) Result Comment: mL/m in/1.73m2 CKD-EPI Creatinine Equation (2020) Performed By: #### L 500.2500, L501.5200, L501.4021, L100.0100 ####[facility] [address] [place], [address] H AND P Exam - Hospitaliston 04-29-2025 H&P Exam - Hospitalist Normal [facility] Hemoglobin measurementOrdere d By: Yola Canales on 04-29-2025 Hemoglobin (Bld) [Mass/Vol] 14.3 g/dL Normal 13.0-16. 5 [facility] Comment on above: Performed By: #### L 500.2500, L501.5200, L501.4021, L100.0100 ####[facility] [address] [place], [address] Immature granulocytes/100 WB C Auto (Bld)Ordered By: Yola Canales on 04-29-2025 Immature granulocytes/100 WBC (Bld) 0.400 % 0.0-0.9 [facility] Comment on above: IG% - Immature Granu locytes (promyelocytes, myelocytes and metamyelocytes) > 1% indicates that a LEFT SHIFT is Present. L501.4021on 04-29-2025 Trop T High Sen 43 ng/L High <=22 [facility] Comment on above: Performed By: #### L 500.2500, L501.5200, L501.4021, L100.0100 ####[facility] [address] [place], [address] MCV (mean corpuscular volume ) determinationOrdered By: Yola Canales on 04-29-2025 MCV (RBC) [Entitic vol] 81.8 fL Normal 80-94 [facility] Comment on above: Performed By: #### L 500.2500, L501.5200, L501.4021, L100.0100 ####[facility] [address] [place], [address] Magnesiumon 04-29-2025 Magnesium [Mass/Vol] 2.3 mg/dL High 1.5-2.2 [facility] Comment on above: Performed By: #### L 500.2500, L501.5200, L501.4021, L100.0100 ####[facility] [address] [place], [address] Magnesium measurement (mass/ volume)Ordered By: Yola Canales on 04-29-2025 Magnesium (Unsp spec) [Mass/Vol] 2.3 mg/dL High 1.5-2.2 [facility] Mean corpuscular hemoglobin (MCH) determinationOrdered By: Yola Canales on 04-29-2025 MCH (RBC) [Entitic mass] 27.3 pg Normal 27.0-32.0 [facility] Comment on above: Performed By: #### L 500.2500, L501.5200, L501.4021, L100.0100 ####[facility] [address] [place], [address] Mean corpuscular hemoglobin concentration (MCHC) determinationOrdered By: Yola Canales on 04-29-2025 MCHC (RBC) [Mass/Vol] 33.4 g/dL Normal 32-36 [facility] Comment on above: Performed By: #### L 500.2500, L501.5200, L501.4021, L100.0100 ####[facility] [address] [place], [address] Mean platelet volume determi nationOrdered By: Yola Canales on 04-29-2025 Platelet mean volume (Bld) [Entitic vol] 10.5 fL Normal 6.2-12.0 [facility] Comment on above: Performed By: #### L 500.2500, L501.5200, L501.4021, L100.0100 ####[facility] [address] [place], [address] Monocyte percentageOrdered B y: Yola Canales on 04-29-2025 Monocytes/100 WBC (Bld) 10.5 % High 0-10 [facility] Comment on above: Performed By: #### L 500.2500, L501.5200, L501.4021, L100.0100 ####[facility] [address] [place], [address] Neutrophil percentageOrdered By: Yola Canales on 04-29-2025 Neutrophils/100 WBC (Bld) 71.4 % High 47-70 [facility] Comment on above: Performed By: #### L 500.2500, L501.5200, L501.4021, L100.0100 ####[facility] [address] [place], [address] Nucleated red blood cell per centageOrdered By: Yola Canales on 04-29-2025 Nucleated RBC/100 WBC (Bld) [Ratio] 0 % 0-5 [facility] Platelet countOrdered By: Arnulfo Canales on 04-29-2025 Platelets (Bld) [#/Vol] 327 10*3/uL Normal 150-450 [facility] Comment on above: Performed By: #### L 500.2500, L501.5200, L501.4021, L100.0100 ####[facility] [address] [place], [address] Potassium measurement (mass/ volume)Ordered By: Yola Canales on 04-29-2025 Potassium (Unsp spec) [Mass/Vol] 4.1 mmol/L 3.3-5.1 [facility] Serum creatinine measurement (mass/volume)Ordered By: Yola Canales on 04-29-2025 Creatinine [Mass/Vol] 1.20 mg/dL Normal 0.70-1.20 [facility] Comment on above: Performed By: #### L 500.2500, L501.5200, L501.4021, L100.0100 ####[facility] [address] [place], [address] Serum glucose measurement (m ass/volume)Ordered By: Yola Canales on 04-29-2025 Glucose [Mass/Vol] 155 mg/dL High 70-99 [facility] Comment on above: Performed By: #### L 500.2500, L501.5200, L501.4021, L100.0100 ####[facility] [address] [place], [address] Serum or plasma calcium nahomy urement (mass/volume)Ordered By: Yola Canales on 04-29-2025 Calcium [Mass/Vol] 9.3 mg/dL Normal 7.6-11.0 [facility] Comment on above: Performed By: #### L 500.2500, L501.5200, L501.4021, L100.0100 ####[facility] [address] [place], [address] Serum or plasma urea nitroge n measurement (mass/volume)Ordered By: Yola Canales on 04-29-2025 Urea nitrogen [Mass/Vol] 24 mg/dL High 4-19 [facility] Comment on above: Performed By: #### L 500.2500, L501.5200, L501.4021, L100.0100 ####[facility] [address] [place], [address] Sodium levelOrdered By: Marcelo Canales on 04-29-2025 Sodium [Moles/Vol] 135 mmol/L Normal 133-145 [facility] Comment on above: Performed By: #### L 500.2500, L501.5200, L501.4021, L100.0100 ####[facility] [address] [place], [address] Troponin T HS 2 HRon 025 Trop T High Sen Normal <=22 [facility] Comment on above: Result Comment: DUPL ICATE ORDER Performed By: #### L 499.0042 ####[facility] [address] [place], [address] Trop T High Sen 42 ng/L High <=22 [facility] Comment on above: Performed By: #### L 499.0042 ####[facility] [address] [place], [address] Troponin T HS 4 HRon 025 Trop T High Sen Normal <=22 [facility] Comment on above: Result Comment: DUPL ICATE ORDER Performed By: #### L 499.0043 ####[facility] [address] [place], [address] Trop T High Sen 38 ng/L High <=22 [facility] Comment on above: Performed By: #### L 499.0043 ####[facility] [address] [place], [address] Troponin T.cardiac [Mass/vol ume] in Serum or Plasma by High sensitivity methodOrdered By: Yola Canales on 04-29-2025 Troponin T.cardiac High sensitivity method [Mass/Vol] 38 ng/L High <22 [facility] Troponin T.cardiac High sensitivity method [Mass/Vol] 42 ng/L High <22 [facility] Troponin T.cardiac High sensitivity method [Mass/Vol] 43 ng/L High <22 [facility] Comment on above: Delta: 49 on 5-2300 White blood cell (WBC) count Ordered By: Yola Canales on 04-29-2025 WBC (Bld) [#/Vol] 10.3 10*3/uL Normal 4.4-11.0 [facility] Comment on above: Performed By: #### L 500.2500, L501.5200, L501.4021, L100.0100 ####[facility] [address] [place], [address] GAGANDEEP w/ Reflex Mult Confirmon 04-10-2025 ANTI-DNA (DS)AB TNP Normal [facility] Comment on above: Performed By: #### L 505.7010, L503.6550, L3100.5450, L3300.1200, L4600.0100 ####[facility] [address] [place], [address] ANTI-SS-A TNP Normal [facility] Comment on above: Performed By: #### L 505.7010, L503.6550, L3100.5450, L3300.1200, L4600.0100 ####[facility] [address] [place], [address] ANTI-SS-B TNP Normal [facility] Comment on above: Performed By: #### L 505.7010, L503.6550, L3100.5450, L3300.1200, L4600.0100 ####[facility] [address] [place], [place], [phone] ANCAon 04-09-2025 Atypical pANCA <1:20 Normal Neg:<1:20 [facility] Comment on above: Result Comment: The atypical pANCA pattern has been observed in asignificant percentage of patients with ulcerative colitis,primary sclerosing cholangitis and autoimmune hepatitis. Performed By: #### L 505.7010, L503.6550, L3100.5450, L3300.1200, L4600.0100 ####[facility] [address] [place], [address] Cytoplasmic Ab <1:20 Normal Neg:<1:20 [facility] Comment on above: Performed By: #### L 505.7010, L503.6550, L3100.5450, L3300.1200, L4600.0100 ####[facility] [address] [place], [address] Perinuclear Ab. <1:20 Normal Neg:<1:20 [facility] Comment on above: Result Comment: The presence of positive fluorescence exhibiting P-ANCA orC-ANCA patterns alone is not specific for the diagnosis ofWegener's Granulomatosis (WG) or microscopic polyangiitis.Decisions about treatment should not be based solely onANCA IFA results. The [employer] Consensusrecommends follow up testing of positive sera with both SD-3 and MPO-ANCA enzyme immunoassays. As many as 5% serumsamples are positive only by EIA. Ref. AM J Clin Fbmvxh3078;111:507-513. Performed By: #### L 505.7010, L503.6550, L3100.5450, L3300.1200, L4600.0100 ####[facility] [address] [place], [place], [id number] CCP IgG Antibodieson 025 CCP IgG Ab. 8 units Normal 0-19 [facility] Comment on above: Result Comment: Nega tive <20 Weak positive 20 - 39 Moderate positive 40 - 59 Strong positive >59Performed at: [facility] [address] [id number] Director: Naresh Pruitt PhD, Phone: [phone] Performed By: #### L 505.7010, L503.6550, L3100.5450, L3300.1200, L4600.0100 ####[facility] [address] [place], [address] Ferritinon 04-08-2025 Ferritin [Mass/Vol] 44 ng/mL Normal 37-417 [facility] Comment on above: Performed By: #### L 505.7010, L503.6550, L3100.5450, L3300.1200, L4600.0100 ####[facility] [address] [place], [place], [id number] Pulmonary Visit Reporton Pulmonary Visit Report Normal [facility] Rheumatoid Factoron 04-08-20 25 RHEUMATOID FAC < 10.0 Normal <15 [facility] Comment on above: Performed By: #### L 505.7010, L503.6550, L3100.5450, L3300.1200, L4600.0100 ####[facility] [address] [place], [address] Serum DNA double strand anti body assay (units/volume)Ordered By: ARSALAN Macario on 04-08-2025 DNA double strand Ab Qn (S) [facility] Comment on above: Test not performed Serum Scl-70 antibody assay (units/volume)Ordered By: ARSALAN Macario on 04-08-2025 SCL-70 extractable nuclear Ab Qn (S) [facility] Comment on above: Test not performed Serum classic neutrophil cyt oplasmic antibody assay (units/volume)Ordered By: ARSALAN Macario on 04-08-2025 Neutrophil cytoplasmic Ab.classic Qn (S) <1:20 titer Neg:<1:20 [facility] Serum or plasma cyclic citru llinated peptide IgG antibody assay (units/volume)Ordered By: ARSALAN Macario on 04-08-2025 Cyclic citrullinated peptide IgG Qn 8 units 0-19 [facility] Comment on above: Negative <20 Weak po sitive 20 - 39 Moderate positive 40 - 59 Strong positive >59Performed at: [facility] [id number] Director: Naresh Pruitt PhD, Phone: [phone] Serum or plasma ferritin harsha surement (mass/volume)Ordered By: ARSALAN Macario on 04-08-2025 Ferritin [Mass/Vol] 44 ng/mL 37-417 [facility] Serum perinuclear neutrophil cytoplasmic antibody titer by immunofluorescenceOrdered By: ARSALAN Macario on 04-08-2025 Neutrophil cytoplasmic Ab.perinuclear IF (S) [Titer] <1:20 titer Neg:<1:20 [facility] Comment on above: The presence of posi tive fluorescence exhibiting P-ANCA orC-ANCA patterns alone is not specific for the diagnosis ofWegener's Granulomatosis (WG) or microscopic polyangiitis.Decisions about treatment should not be based solely onANCA IFA results. The [employer] Consensusrecommends follow up testing of positive sera with both SD-3 and MPO-ANCA enzyme immunoassays. As many as 5% serumsamples are positive only by EIA. Ref. AM J Clin Oheioi2205;111:507-513. Serum rheumatoid factor dete ctionOrdered By: ARSALAN Macario on 04-08-2025 Rheumatoid factor Ql (S) < 10.0 IU/mL <15 [facility] 04-02-2025 [facility] Telephone (FAMPWS) FAISAL ALARCON ([id number]) 1945 M Date Time Provider Department 04/02/25 MATHIEU VIRGEN [facility] During your visit today, we recorded the following information about you: Janet King MA 04/02/2025 4:39 PM Signed Type of form: Prescription Assistance Form received via walk in When form is completed, Fax form to [facility] Form has been forwarded to Physician Desk: Dr. Virgen Prescription pended to go to [facility], as listed on form. JOSE ARMANDO Tee William J, MD 04/03/2025 10:45 AM Signed Jaylene Otoole LPN 04/03/2025 11:11 AM Signed Faxed application. 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 Ordered by cardiology - Blood-Glucose Sensor ([email or web address] G7 SENSOR) sayra Apply new sensor every [...] 06/06/2023 Diagno (more content not included)... Normal [facility] Chest without Contraston Chest without Contrast Normal [facility] 6 Minute Walk Teston 025 6 Minute Walk Test Normal [facility] [facility] FAISAL ALARCON ([id number]) 1945 M Date Time Provider Department 02/11/25 MATHIEU VIRGEN [facility] During your visit today, we recorded the following information about you: Jaylene Henley LPN 02/11/2025 9:10 AM Signed [facility] requesting DM note faxed to [...] 06/06/2023 Di (more content not included)... Normal [facility] CNPNon 02-06-2025 CNPN Telephone (FAMWS) FAISAL ALARCON ([id number]) 1945 Date Time Provider Department 02/06/25 MATHIEU VIRGEN [facility] During your visit today, we [...] afternoon. Ordered by cardiology - Blood-Glucose Sensor ([email or web address] G7 SENSOR) sayra Apply new sensor every [...] coronary luis* (more content not included)... Normal [facility] CBC W/Diff, Automatedon - PATH REV Reviewed Normal [facility] Comment on above: Result Comment: SEE REPORT IN PATIENT'S EMR AMENDED REPORT 02/05/25 1603 PATH REV previously reported as: January Performed By: #### L 100.0100 ####[facility] [address] [place], [address] CNOVon 01-26-2025 CNOV Office Visit (FAMPWS ) FAISAL ALARCON ([id number]) 1945 M Date Time Provider Department 01/26/25 [...] Sister Cancer (more content not included)... Normal [facility] Cardiology Visit Reporton Cardiology Visit Report Normal [facility] CNOVon 01-22-2025 CNOV Office Visit (PODIWS ) FAISAL ALARCON ([id number]) 1945 M Date Time Provider Department 01/22/25 [...] every afternoon. Ordered by cardiology Blood-Glucose Sensor ([email or web address] G7 SENSOR) sayra Apply new sensor every [...] mouth once (more content not included)... [facility] ([facility]) FAISAL ALARCON ([id number]) 1945 Vikas Date Time Provider Department 01/22/25 MATHIEU VIRGEN During your visit today, we recorded the following information about you: Liyah Monroy RN 01/22/2025 8:23 AM Signed Jacki with [facility] Lab called in and need the diagnosis [...] Mild dehy (more content not included)... Normal [facility] XR FOOT 3V AP/LAT/OBL LTon 0 01-22-2025 [...] Stable 2nd through 4th metatarsal neck fractures Bi Data Architect[facility] Transcribe Date/Time: Jan 28 2025 7:42A Dictated by : DANELLE BHAGAT MD This examination was interpreted and the report reviewed and electronically signed by: DANELLE BHAGAT MD on Jan 28 2025 7:45AM EST [id number] Normal [facility] Absolute lymphocyte countOrd ered By: Mathieu Virgen on 01-21-2025 Lymphocytes Auto (Unsp spec) [#/Vol] 1.71 10*3/uL 0.83-4.51 [facility] Absolute neutrophil countOrd ered By: Mathieu Virgen on 01-21-2025 Neutrophils (Bld) [#/Vol] 7.3 10*3/uL 2.0-7.7 [facility] Automated lymphocyte count a s percentage of total leukocytesOrdered By: Mathieu Virgen on 01-21-2025 Lymphocytes/100 WBC Auto (Unsp spec) 16.5 % Low 19-41 [facility] Basophil percentageOrdered B y: Mathieu Virgen on 01-21-2025 Basophils/100 WBC (Bld) 0.3 % 0-1 [facility] Eosinophil percentageOrdered By: Mathieu Virgen on 01-21-2025 Eosinophils/100 WBC (Bld) 2.4 % 0-5 [facility] Erythrocyte distribution wid th ratioOrdered By: Mathieu Virgen on 01-21-2025 Erythrocyte distribution width (RBC) [Ratio] 15.9 % High 11.6-14.6 [facility] Erythrocyte distribution wid th standard deviationOrdered By: Mathieu Virgen on 01-21-2025 Erythrocyte distribution width (RBC) [Ratio] 47.5 fl High 35.1-43.9 [facility] Hematocrit Auto (Bld) [Volum e fraction]Ordered By: Mathieu Virgen on 01-21-2025 Hematocrit (Bld) [Volume fraction] 43.5 % 40-54 [facility] Hemoglobin measurementOrdere d By: Mathieu Virgen on 01-21-2025 Hemoglobin (Bld) [Mass/Vol] 14.4 g/dL 13.0-16. 5 [facility] Immature granulocytes/100 WB C Auto (Bld)Ordered By: Mathieu Virgen on 01-21-2025 Immature granulocytes/100 WBC (Bld) 0.500 % 0.0-0.9 [facility] Comment on above: IG% - Immature Granu locytes (promyelocytes, myelocytes and metamyelocytes) > 1% indicates that a LEFT SHIFT is Present. MCV (mean corpuscular volume ) determinationOrdered By: Mathieu Virgen on 01-21-2025 MCV (RBC) [Entitic vol] 81.5 fL 80-94 [facility] Mean corpuscular hemoglobin (MCH) determinationOrdered By: Mathieu Virgen on 01-21-2025 MCH (RBC) [Entitic mass] 27.0 pg 27.0-32.0 [facility] Mean corpuscular hemoglobin concentration (MCHC) determinationOrdered By: Mathieu Virgen on 01-21-2025 MCHC (RBC) [Mass/Vol] 33.1 g/dL 32-36 [facility] Mean platelet volume determi nationOrdered By: Mathieu Virgen on 01-21-2025 Platelet mean volume (Bld) [Entitic vol] 10.6 fL 6.2-12.0 [facility] Monocyte percentageOrdered B y: Mathieu Virgen on 01-21-2025 Monocytes/100 WBC (Bld) 10.2 % High 0-10 [facility] Neutrophil percentageOrdered By: Mathieu Virgen on 01-21-2025 Neutrophils/100 WBC (Bld) 70.1 % High 47-70 [facility] Nucleated red blood cell per centageOrdered By: Mathieu Virgen on 01-21-2025 Nucleated RBC/100 WBC (Bld) [Ratio] 0 % 0-5 [facility] Platelet countOrdered By: Shannon Virgen on 01-21-2025 Platelets (Bld) [#/Vol] 241 10*3/uL 150-450 [facility] Pulmonary Visit Reporton Pulmonary Visit Report Normal [facility] RBC Auto (Bld) [#/Vol]Ordere d By: Mathieu Virgen on 01-21-2025 RBC (Bld) [#/Vol] 5.34 10*6/uL 4.6-6.2 [facility] Review by pathologistOrdered By: Mathieu Virgen on 01-21-2025 Pathologist review Rey (Unsp spec) [Interp] Tamara bernard [facility] Pathologist review Rey (Unsp spec) [Interp] Reviewed [facility] Comment on above: Previous reported re sult: Tamara bernard Edited by: IRON on 02/05/25:1603SEE REPORT IN PATIENT'S EMR AMENDED REPORT 02/05/25 1603 PATH REV previously reported as: Tamara bernard White blood cell (WBC) count Ordered By: Mathieu Virgen on 01-21-2025 WBC (Bld) [#/Vol] 10.4 10*3/uL 4.4-11.0 [facility] Emergency Department Summary on 01-20-2025 Emergency Department Summary Normal [facility] L499.0042on 01-20-2025 Trop T High Sen 51 ng/L High <=22 [facility] Comment on above: Order Comment: *THIS IS ACTUALLY 4 HOUR TROP* Result Comment: Crit ical Result(s) Called at: by:??Results read back bysaca. Performed By: #### L 499.0042 ####[facility] [address] [place], [place], [address] L499.0043on 01-20-2025 Trop T High Sen 53 ng/L High <=22 [facility] Comment on above: Order Comment: *THIS IS ACTUALLY 2 HOUR TROP* Result Comment: Crit ical Result(s) Called at: 0349 by: LAUREN DAVIS Results read back by same. AMENDED REPORT 01/20/25 1831 Trop T HS 4HR previously reported as: 51 H ng/L Performed By: #### L 499.0043 ####[facility] [address] [place], [place], [address] Troponin T.cardiac [Mass/vol ume] in Serum or Plasma by High sensitivity methodOrdered By: Abraham Tierney on 01-20-2025 Troponin T.cardiac High sensitivity method [Mass/Vol] 51 ng/L High <22 [facility] Comment on above: Critical Result(s) C alled at: by: Results read back by same. Troponin T.cardiac High sensitivity method [Mass/Vol] 53 ng/L High <22 [facility] Comment on above: Critical Result(s) C alled at: 2939 by: LAUREN LOPEZ TO DAGO DAVIS Results read back by same.Previous reported result: 51 ng/LEdited by: AUTOINS on 01/20/25:0351 AMENDED REPORT 01/20/25350 Trop T HS 4HR previously reported as: 51 H ng/L 12 Lead EKGon 01-19-2025 12 Lead EKG Normal [facility] Absolute lymphocyte countOrd ered By: Abraham Tierney on 01-19-2025 Lymphocytes Auto (Unsp spec) [#/Vol] 2.50 10*3/uL 0.83-4.51 [facility] Absolute neutrophil countOrd ered By: Abraham Tierney on 01-19-2025 Neutrophils (Bld) [#/Vol] 8.3 10*3/uL High 2.0-7.7 [facility] Anion gap in Serum or Plasma Ordered By: Abraham Tierney on 01-19-2025 Anion gap [Moles/Vol] 14 mmol/L 5-15 [facility] Automated blood erythrocyte countOrdered By: Abraham Tierney on 01-19-2025 RBC (Bld) [#/Vol] 5.58 10*6/uL Normal 4.6-6.2 [facility] Comment on above: Performed By: #### L 500.2500, L501.4021, L100.0100 ####[facility] [address] [place], [place], [id number] Automated blood hematocrit ( percentage)Ordered By: Abraham Tierney on 01-19-2025 Hematocrit (Bld) [Volume fraction] 44.8 % Normal 40-54 [facility] Comment on above: Performed By: #### L 500.2500, L501.4021, L100.0100 ####[facility] [address] [place], [address] Automated lymphocyte count a s percentage of total leukocytesOrdered By: Abraham Tierney on 01-19-2025 Lymphocytes/100 WBC Auto (Unsp spec) 19.7 % 19-41 [facility] BUN/creatinine ratioOrdered By: Abraham Tierney on 01-19-2025 Urea nitrogen/Creatinine [Mass ratio] 25.0 mg/mg High 10-20 [facility] Basic Metabolic Profile (BMP )on 01-19-2025 BUN/CRE 25.0 RATIO High - [facility] Comment on above: Performed By: #### L 500.2500, L501.4021, L100.0100 ####[facility] [address] [place], [address] ECRCL 64.50 ml/min Normal 50-250 [facility] Comment on above: Performed By: #### L 500.2500, L501.4021, L100.0100 ####[facility] [address] [place], [address] GAP 14 Normal 5-15 [facility] Comment on above: Performed By: #### L 500.2500, L501.4021, L100.0100 ####[facility] [address] [place], [address] Potassium [Moles/Vol] 3.9 mmol/L Normal 3.3-5.1 [facility] Comment on above: Performed By: #### L 500.2500, L501.4021, L100.0100 ####[facility] [address] [place], [address] Basophil percentageOrdered B y: Abraham Tierney on 01-19-2025 Basophils/100 WBC (Bld) 0.5 % Normal 0-1 [facility] Comment on above: Performed By: #### L 500.2500, L501.4021, L100.0100 ####[facility] [address] [place], [address] CBC W/Diff, Automatedon 05-0 5-2025 Absolute Lymph 2.50 X10 3/uL Normal 0.83-4.51 [facility] Comment on above: Performed By: #### L 500.2500, L501.4021, L100.0100 ####[facility] [address] [place], [address] Absolute Neut 8.3 X10 3/uL High 2.0-7.7 [facility] Comment on above: Performed By: #### L 500.2500, L501.4021, L100.0100 ####[facility] [address] [place], [address] IG% 0.500 Normal 0.0-0.9 [facility] Comment on above: Result Comment: IG% - Immature Granulocytes (promyelocytes, myelocytes andmetamyelocytes) > 1% indicates that a LEFT SHIFT is Present. Performed By: #### L 500.2500, L501.4021, L100.0100 ####[facility] [address] [place], [address] Lymphocytes/100 WBC (Bld) 19.7 % Normal 19-41 [facility] Comment on above: Performed By: #### L 500.2500, L501.4021, L100.0100 ####[facility] [address] [place], [address] Nucleated RBC (Bld) [#/Vol] 0 10*3/uL Normal 0-5 [facility] Comment on above: Performed By: #### L 500.2500, L501.4021, L100.0100 ####[facility] [address] [place], [address] RDW SD 46.3 fl High 35.1-43.9 [facility] Comment on above: Performed By: #### L 500.2500, L501.4021, L100.0100 ####[facility] [address] [place], [address] Carbon dioxide, total [Moles /volume] in Central venous bloodOrdered By: Abraham Tierney on 01-19-2025 CO2 [Moles/Vol] 22.5 mmol/L Normal 21.0-32.0 [facility] Comment on above: Performed By: #### L 500.2500, L501.4021, L100.0100 ####[facility] [address] [place], [address] Chest 1 View (Portable)on Chest 1 View (Portable) Normal [facility] Chloride assayOrdered By: Pineda Tierney on 01-19-2025 Chloride [Moles/Vol] 98 mmol/L Normal 98-108 [facility] Comment on above: Performed By: #### L 500.2500, L501.4021, L100.0100 ####[facility] [address] [place], [address] Eosinophil percentageOrdered By: Abraham Tierney on 01-19-2025 Eosinophils/100 WBC (Bld) 2.7 % Normal 0-5 [facility] Comment on above: Performed By: #### L 500.2500, L501.4021, L100.0100 ####[facility] [address] [place], [address] Erythrocyte distribution wid th ratioOrdered By: Abraham Tierney on 01-19-2025 Erythrocyte distribution width (RBC) [Ratio] 16.0 % High 11.6-14.6 [facility] Comment on above: Performed By: #### L 500.2500, L501.4021, L100.0100 ####[facility] [address] [place], [address] Erythrocyte distribution wid th standard deviationOrdered By: Abraham Tierney on 01-19-2025 Erythrocyte distribution width (RBC) [Ratio] 46.3 fl High 35.1-43.9 [facility] Glomerular filtration rate ( GFR) estimation/1.73 sq m using serum, plasma, or whole bOrdered By: Abraham Tierney on 01-19-2025 GFR/1.73 sq M.predicted among non-blacks MDRD (S/P/Bld) [Vol rate/Area] 58 mL/min/{1.73_m2} Low >60 [facility] Comment on above: mL/min/1.73m2 CKD-EP I Creatinine Equation (2020) Result Comment: mL/m in/1.73m2 CKD-EPI Creatinine Equation (2020) Performed By: #### L 500.2500, L501.4021, L100.0100 ####[facility] [address] [place], [address] Hemoglobin measurementOrdere d By: Abraham Tierney on 01-19-2025 Hemoglobin (Bld) [Mass/Vol] 15.0 g/dL Normal 13.0-16. 5 [facility] Comment on above: Performed By: #### L 500.2500, L501.4021, L100.0100 ####[facility] [address] [place], [address] Immature granulocytes/100 WB C Auto (Bld)Ordered By: Abraham Tierney on 01-19-2025 Immature granulocytes/100 WBC (Bld) 0.500 % 0.0-0.9 [facility] Comment on above: IG% - Immature Granu locytes (promyelocytes, myelocytes and metamyelocytes) > 1% indicates that a LEFT SHIFT is Present. L501.4021on 01-19-2025 Trop T High Sen 49 ng/L High <=22 [facility] Comment on above: Performed By: #### L 500.2500, L501.4021, L100.0100 ####[facility] [address] [place], [address] MCV (mean corpuscular volume ) determinationOrdered By: Abraham Tierney on 01-19-2025 MCV (RBC) [Entitic vol] 80.3 fL Normal 80-94 [facility] Comment on above: Performed By: #### L 500.2500, L501.4021, L100.0100 ####[facility] [address] [place], [address] Mean corpuscular hemoglobin (MCH) determinationOrdered By: Abraham Tierney on 01-19-2025 MCH (RBC) [Entitic mass] 26.9 pg Low 27.0-32.0 [facility] Comment on above: Performed By: #### L 500.2500, L501.4021, L100.0100 ####[facility] [address] [place], [address] Mean corpuscular hemoglobin concentration (MCHC) determinationOrdered By: Abraham Tierney on 01-19-2025 MCHC (RBC) [Mass/Vol] 33.5 g/dL Normal 32-36 [facility] Comment on above: Performed By: #### L 500.2500, L501.4021, L100.0100 ####[facility] [address] [place], [address] Mean platelet volume determi nationOrdered By: Abraham Tierney on 01-19-2025 Platelet mean volume (Bld) [Entitic vol] 10.9 fL Normal 6.2-12.0 [facility] Comment on above: Performed By: #### L 500.2500, L501.4021, L100.0100 ####[facility] [address] [place], [address] Monocyte percentageOrdered B y: Abraham Tierney on 01-19-2025 Monocytes/100 WBC (Bld) 11.4 % High 0-10 [facility] Comment on above: Performed By: #### L 500.2500, L501.4021, L100.0100 ####[facility] [address] [place], [address] Neutrophil percentageOrdered By: Abraham Tierney on 01-19-2025 Neutrophils/100 WBC (Bld) 65.2 % Normal 47-70 [facility] Comment on above: Performed By: #### L 500.2500, L501.4021, L100.0100 ####[facility] [address] [place], [address] Nucleated red blood cell per centageOrdered By: Abraham Tierney on 01-19-2025 Nucleated RBC/100 WBC (Bld) [Ratio] 0 % 0-5 [facility] Platelet countOrdered By: Pineda Tierney on 01-19-2025 Platelets (Bld) [#/Vol] 273 10*3/uL Normal 150-450 [facility] Comment on above: Performed By: #### L 500.2500, L501.4021, L100.0100 ####[facility] [address] [place], [address] Potassium measurement (mass/ volume)Ordered By: Abraham Tierney on 01-19-2025 Potassium (Unsp spec) [Mass/Vol] 3.9 mmol/L 3.3-5.1 [facility] Serum creatinine measurement (mass/volume)Ordered By: Abraham Tierney on 01-19-2025 Creatinine [Mass/Vol] 1.25 mg/dL High 0.70-1.20 [facility] Comment on above: Performed By: #### L 500.2500, L501.4021, L100.0100 ####[facility] [address] [place], [address] Serum glucose measurement (m ass/volume)Ordered By: Abraham Tierney on 01-19-2025 Glucose [Mass/Vol] 156 mg/dL High 70-99 [facility] Comment on above: Performed By: #### L 500.2500, L501.4021, L100.0100 ####[facility] [address] [place], [address] Serum or plasma calcium nahomy urement (mass/volume)Ordered By: Abraham Tierney on 01-19-2025 Calcium [Mass/Vol] 9.9 mg/dL Normal 7.6-11.0 [facility] Comment on above: Performed By: #### L 500.2500, L501.4021, L100.0100 ####[facility] [address] [place], [address] Serum or plasma urea nitroge n measurement (mass/volume)Ordered By: Abraham Tierney on 01-19-2025 Urea nitrogen [Mass/Vol] 31 mg/dL High 4-19 [facility] Comment on above: Performed By: #### L 500.2500, L501.4021, L100.0100 ####[facility] [address] [place], [address] Sodium levelOrdered By: Abraham Tierney on 01-19-2025 Sodium [Moles/Vol] 134 mmol/L Normal 133-145 [facility] Comment on above: Performed By: #### L 500.2500, L501.4021, L100.0100 ####[facility] [address] [place], [address] Troponin T.cardiac [Mass/vol ume] in Serum or Plasma by High sensitivity methodOrdered By: Abraham Tierney on 01-19-2025 Troponin T.cardiac High sensitivity method [Mass/Vol] 49 ng/L High <22 [facility] White blood cell (WBC) count Ordered By: Abraham Tierney on 01-19-2025 WBC (Bld) [#/Vol] 12.7 10*3/uL High 4.4-11.0 [facility] Comment on above: Performed By: #### L 500.2500, L501.4021, L100.0100 ####[facility] [address] [place], [address] CNOVon 01-12-2025 CNOV Office Visit [facility] FAISAL ALARCON ([id number]) 1945 M Date Time Provider Department 01/12/25 [...] pk-yrs) Ty (more content not included)... Normal [facility] CNPSharlene 01-12-2025 [facility] FAISAL ALARCON ([id number]) 1945 M Date Time Provider Department 01/12/25 MATHIEU VIRGEN [facility] During your visit today, we recorded the following information about you: Mathieu Virgen MD 01/12/2025 7:32 PM Signed Shows a fracture in his foot. See if can get into podiatry. See if we can get him in a post op shoe. uLlu Walls MA 01/13/2025 8:07 AM Signed Spoke [...] but she has questions re: what the physics tutor would do. Transferred to clinical for assistance. [...] [S92.909A] Order(s):CONSULT TO PODIATRY [9034] Order #: [id number]: 1 FUTURE POST - OP SHOE [[id number]] Order #: [id number] Prescriptions as of 01/16/2025 - carvedilol (COREG) [...] afternoon. Ordered by cardiology - Blood-Glucose Sensor ([email or web address] G7 SENSOR) sayra Apply new sensor every [...] LANCETS) lancets (more content not included)... Normal [facility] XR FOOT 3V AP/LAT/OBL LTon 0 01-12-2025 [...] joint. 3. Small plantar calcaneal heel spur. Bi Data Architect: PSCB Transcribe Date/Time: Jan 12 2025 7:00P Dictated by : NARDA REEVES MD This examination was interpreted and the report reviewed and electronically signed by: NARDA REEVES MD on Jan 12 2025 7:02PM EST [id number] Normal [facility] XR Foot - left AP and Latera l and obliqueon 04-28-2025 IMPRESSION: 1. Acute appearing fracture through the distal neck of the second third and fourth metatarsals. 2. Mild bunion deformity with mild degenerative changes at the first MTP joint. 3. Small plantar calcaneal heel spur. Bi Data Architect: PSCB Transcribe Date/Time: Jan 12 2025 7:00P Dictated by : NARDA REEVES MD This examination was interpreted and the report reviewed and electronically signed by: NARDA REEVES MD on Jan 12 2025 7:02PM [facility] DIVISION OF RADIOLOGY * * *Final Report* [...] of the forefoot. DIVISION OF RADIOLOGY Provider, [facility] - 01/12/2025 * * *Final Report* * [...] joint. 3. Small plantar calcaneal heel spur. Bi Data Architect: PSCB Transcribe Date/Time: Jan 12 2025 7:00P Dictated by : NARDA REEVES MD This examination was interpreted and the report reviewed and electronically signed by: NARDA REEVES MD on Jan 12 2025 7:02PM EST [facility] Radiology Study observation (narrative) [facility] XR Foot - left AP and Latera l and obliqueOrdered By: [facility]cf Provider on 01-12-2025 [facility] Cardiology Visit Reporton Cardiology Visit Report Normal [facility] CNPNon 12-03-2024 CNPN Telephone ([facility]) FAISAL ALARCON ([id number]) 1945 M Date Time Provider Department 12/03/24 [facility] During your visit today, we recorded the following information about you: Aly Mandel MA 12/03/2024 6:43 PM Signed Received PA from pharmacy for Fiasp Flextouch. Tried to complete through covermymeds but was instructed to call [employer] at . Spoke to [facility] who will submit info to pharmacy for PA. JOSE ARMANDO Starr Stephanie, RN 12/04/2024 11:18 AM Signed Medardo from [employer] calls and reports that patient's medication is approved until 09/06/2025. [employer] is faxing over approval letter. NILDA Colbert Janice, LPN 12/04/2024 11:53 AM Signed Rec'd and in scanned documents. Pharmacy notified. Tonia Ellis LPN 12/04/2024 4:21 PM Signed Pt and caregiver notified via [employer]. Allergies As of Date: 12/03/2024 Noted Allergy [...] [E66.812] 01/31/2021 (more content not included)... Normal [facility] CNOVon 12-02-2024 CNOV Office Visit ([facility] ) FAISAL ALARCON ([id number]) 1945 M Date Time Provider Department 12/02/24 3:40 PM MATHIEU VIRGEN [facility] During your visit today, we [...] up at 12. Has been following with [facility]. Seeing pulmonary. Uro: follows with [...] every afternoon. Ordered by cardiology Blood-Glucose Sensor ([email or web address] G7 SENSOR) sayra Apply new sensor every [...] mouth every 12 hours. Prescribed by outside supplier engineer No current facility-administered medications for this visit. [...] testing as (more content not included)... Normal [facility] CBC-Complete Blood Cnt No Di ffon 11-29-2024 Erythrocyte distribution width (RBC) [Ratio] 17.0 % High 11.6-14.6 [facility] Comment on above: Performed By: #### L 500.4050, L502.0250, L500.4100, L501.9985, L100.0500 ####[facility] [address] [place], [address] Hematocrit (Bld) [Volume fraction] 44.1 % Normal 40-54 [facility] Comment on above: Performed By: #### L 500.4050, L502.0250, L500.4100, L501.9985, L100.0500 ####[facility] [address] [place], [address] Hemoglobin (Bld) [Mass/Vol] 14.6 g/dL Normal 13.0-16. 5 [facility] Comment on above: Performed By: #### L 500.4050, L502.0250, L500.4100, L501.9985, L100.0500 ####[facility] [address] [place], [address] MCH (RBC) [Entitic mass] 26.6 pg Low 27.0-32.0 [facility] Comment on above: Performed By: #### L 500.4050, L502.0250, L500.4100, L501.9985, L100.0500 ####[facility] [address] [place], [address] MCHC (RBC) [Mass/Vol] 33.1 g/dL Normal 32-36 [facility] Comment on above: Performed By: #### L 500.4050, L502.0250, L500.4100, L501.9985, L100.0500 ####[facility] [address] [place], [address] MCV (RBC) [Entitic vol] 80.3 fL Normal 80-94 [facility] Comment on above: Performed By: #### L 500.4050, L502.0250, L500.4100, L501.9985, L100.0500 ####[facility] [address] [place], [address] Platelet mean volume (Bld) [Entitic vol] 11.2 fL Normal 6.2-12.0 [facility] Comment on above: Performed By: #### L 500.4050, L502.0250, L500.4100, L501.9985, L100.0500 ####[facility] [address] [place], [address] Platelets (Bld) [#/Vol] 282 10*3/uL Normal 150-450 [facility] Comment on above: Performed By: #### L 500.4050, L502.0250, L500.4100, L501.9985, L100.0500 ####[facility] [address] [place], [address] RBC (Bld) [#/Vol] 5.49 10*6/uL Normal 4.6-6.2 [facility] Comment on above: Performed By: #### L 500.4050, L502.0250, L500.4100, L501.9985, L100.0500 ####[facility] [address] [place], [address] RDW SD 49.3 fl High 35.1-43.9 [facility] Comment on above: Performed By: #### L 500.4050, L502.0250, L500.4100, L501.9985, L100.0500 ####[facility] [address] [place], [address] WBC (Bld) [#/Vol] 12.1 10*3/uL High 4.4-11.0 [facility] Comment on above: Performed By: #### L 500.4050, L502.0250, L500.4100, L501.9985, L100.0500 ####[facility] [address] [place], [address] Erythrocyte distribution wid th ratioOrdered By: Mathieu Virgen on 11-29-2024 Erythrocyte distribution width (RBC) [Ratio] 17.0 % High 11.6-14.6 [facility] Erythrocyte distribution wid th standard deviationOrdered By: Mathieu Virgen on 11-29-2024 Erythrocyte distribution width (RBC) [Entitic vol] 49.3 fL High 35.1-43.9 [facility] Erythrocyte distribution width (RBC) [Ratio] 49.3 fl High 35.1-43.9 [facility] Hematocrit Auto (Bld) [Volum e fraction]Ordered By: Mathieu Virgen on 11-29-2024 Hematocrit (Bld) [Volume fraction] 44.1 % 40-54 [facility] Hemoglobin measurementOrdere d By: Mathieu Virgen on 11-29-2024 Hemoglobin (Bld) [Mass/Vol] 14.6 g/dL 13.0-16. 5 [facility] MCV (mean corpuscular volume ) determinationOrdered By: Mathieu Virgen on 11-29-2024 MCV (RBC) [Entitic vol] 80.3 fL 80-94 [facility] Mean corpuscular hemoglobin (MCH) determinationOrdered By: Mathieu Virgen on 11-29-2024 MCH (RBC) [Entitic mass] 26.6 pg Low 27.0-32.0 [facility] Mean corpuscular hemoglobin concentration (MCHC) determinationOrdered By: Mathieu Virgen on 11-29-2024 MCHC (RBC) [Mass/Vol] 33.1 g/dL 32-36 [facility] Mean platelet volume determi nationOrdered By: Mathieu Virgen on 11-29-2024 Platelet mean volume (Bld) [Entitic vol] 11.2 fL 6.2-12.0 [facility] Platelet countOrdered By: Shannon Virgen on 11-29-2024 Platelets (Bld) [#/Vol] 282 10*3/uL 150-450 [facility] RBC Auto (Bld) [#/Vol]Ordere d By: Mathieu Virgen on 11-29-2024 RBC (Bld) [#/Vol] 5.49 10*6/uL 4.6-6.2 [facility] White blood cell (WBC) count Ordered By: Mathieu Virgen on 11-29-2024 WBC (Bld) [#/Vol] 12.1 10*3/uL High 4.4-11.0 [facility] Albumin DL <= 20 mg/L (U) [M ass/Vol]Ordered By: Mathieu Virgen on 11-28-2024 Urine Random Microalbumin 17.0 mg/L NO RANGE EST. [facility] Anion gap in Serum or Plasma Ordered By: Mathieu Virgen on 11-28-2024 Anion gap [Moles/Vol] 13 mmol/L 5- [facility] BUN/creatinine ratioOrdered By: Mathieu Virgen on 11-28-2024 Urea nitrogen/Creatinine [Mass ratio] 19.6 mg/mg 10- [facility] Bilirubin, totalOrdered By: Mathieu Virgen on 11-28-2024 Bilirubin [Mass/Vol] 0.49 mg/dL 0.00-1.30 [facility] [facility] ([id number]) 1945 M Date Time Provider Department 11/28/24 MATHIEU VIRGEN [facility] During your visit today, we recorded the following information about you: Miley Pemberton MA 11/28/2024 4:58 PM Signed Pt had blood work done. View External Labs - Chemistry [ID [id number]] View External Labs - Miscellaneous Lab [ID [id number]] View External Labs - Chemistry [ID [id number]] JOSE ARMANDO Corrales William J, MD 11/29/2024 [...] afternoon. Ordered by cardiology - Blood-Glucose Sensor ([email or web address] G7 SENSOR) sayra Apply new sensor every [...] times a day before meals. Getting through [facility] - simvastatin (ZOCOR) 40 mg tablet Take 1 tablet by mouth daily at bedtime. - flecainide (TAMBOCOR) 150 mg tablet Take 1 tablet by mouth every 12 hours. Prescribed by outside supplier engineer - insulin glargine (BASAGLAR KWIKPEN U-100 INSULIN) [...] fibrillation [ (more content not included)... Normal [facility] Calculated very low density lipoprotein (VLDL) cholesterol measurementOrdered By: Mathieu Virgen on 11-28-2024 Calculated very low density lipoprotein (VLDL) cholesterol measurement 22 mg/dL 5-40 [facility] VLDL Cholesterol 22 mg/dL 5-40 [facility] Carbon dioxide, total [Moles /volume] in Central venous bloodOrdered By: Mathieu Virgen on 11-28-2024 CO2 [Moles/Vol] 21.4 mmol/L 21.0-32.0 [facility] Chloride assayOrdered By: Shannon Virgen on 11-28-2024 Chloride [Moles/Vol] 101 mmol/L 98-108 [facility] Comprehensive Metabolic Prof ilon 11-28-2024 Albumin [Mass/Vol] 4.0 g/dL Normal 3.4-4.8 [facility] Comment on above: Order Comment: CBC Performed By: #### L 500.4050, L502.0250, L500.4100, L501.9985, L100.0500 ####[facility] [address] [place], [place], [id number] Albumin/Globulin [Mass ratio] 1.2 {ratio} Normal 0.9-2.4 [facility] Comment on above: Order Comment: CBC Performed By: #### L 500.4050, L502.0250, L500.4100, L501.9985, L100.0500 ####[facility] [address] [place], [address] ALK PHOS 110 U/L Normal 40-129 [facility] Comment on above: Order Comment: CBC Performed By: #### L 500.4050, L502.0250, L500.4100, L501.9985, L100.0500 ####[facility] [address] [place], [address] ALT [Catalytic activity/Vol] 15 U/L Normal <=46 [facility] Comment on above: Order Comment: CBC Performed By: #### L 500.4050, L502.0250, L500.4100, L501.9985, L100.0500 ####[facility] [address] [place], [address] AST [Catalytic activity/Vol] 19 U/L Normal <=37 [facility] Comment on above: Order Comment: CBC Performed By: #### L 500.4050, L502.0250, L500.4100, L501.9985, L100.0500 ####[facility] [address] [place], [address] Bilirubin [Mass/Vol] 0.49 mg/dL Normal 0.00-1.30 [facility] Comment on above: Order Comment: CBC Performed By: #### L 500.4050, L502.0250, L500.4100, L501.9985, L100.0500 ####[facility] [address] [place], [address] BUN/CRE 19.6 RATIO Normal 10-20 [facility] Comment on above: Order Comment: CBC Performed By: #### L 500.4050, L502.0250, L500.4100, L501.9985, L100.0500 ####[facility] [address] [place], [address] Calcium [Mass/Vol] 9.3 mg/dL Normal 7.6-11.0 [facility] Comment on above: Order Comment: CBC Performed By: #### L 500.4050, L502.0250, L500.4100, L501.9985, L100.0500 ####[facility] [address] [place], [address] Chloride [Moles/Vol] 101 mmol/L Normal 98-108 [facility] Comment on above: Order Comment: CBC Performed By: #### L 500.4050, L502.0250, L500.4100, L501.9985, L100.0500 ####[facility] [address] [place], [address] CO2 [Moles/Vol] 21.4 mmol/L Normal 21.0-32.0 [facility] Comment on above: Order Comment: CBC Performed By: #### L 500.4050, L502.0250, L500.4100, L501.9985, L100.0500 ####[facility] [address] [place], [address] Creatinine [Mass/Vol] 1.00 mg/dL Normal 0.70-1.20 [facility] Comment on above: Order Comment: CBC Performed By: #### L 500.4050, L502.0250, L500.4100, L501.9985, L100.0500 ####[facility] [address] [place], [address] GAP 13 Normal 5-15 [facility] Comment on above: Order Comment: CBC Performed By: #### L 500.4050, L502.0250, L500.4100, L501.9985, L100.0500 ####[facility] [address] [place], [address] GFR/1.73 sq M.predicted among non-blacks MDRD (S/P/Bld) [Vol rate/Area] 76 mL/min/{1.73_m2} Normal >60 [facility] Comment on above: Order Comment: CBC Result Comment: mL/m in/1.73m2 CKD-EPI Creatinine Equation (2020) Performed By: #### L 500.4050, L502.0250, L500.4100, L501.9985, L100.0500 ####[facility] [address] [place], [address] Globulin (S) [Mass/Vol] 3.3 g/dL Normal 2.2-4.2 [facility] Comment on above: Order Comment: CBC Performed By: #### L 500.4050, L502.0250, L500.4100, L501.9985, L100.0500 ####[facility] [address] [place], [address] Glucose [Mass/Vol] 121 mg/dL High 70-99 [facility] Comment on above: Order Comment: CBC Performed By: #### L 500.4050, L502.0250, L500.4100, L501.9985, L100.0500 ####[facility] [address] [place], [address] Potassium [Moles/Vol] 4.3 mmol/L Normal 3.3-5.1 [facility] Comment on above: Order Comment: CBC Performed By: #### L 500.4050, L502.0250, L500.4100, L501.9985, L100.0500 ####[facility] [address] [place], [address] Sodium [Moles/Vol] 136 mmol/L Normal 133-145 [facility] Comment on above: Order Comment: CBC Performed By: #### L 500.4050, L502.0250, L500.4100, L501.9985, L100.0500 ####[facility] [address] [place], [place], [id number] T PROT 7.3 g/dL Normal 5.9-8.4 [facility] Comment on above: Order Comment: CBC Performed By: #### L 500.4050, L502.0250, L500.4100, L501.9985, L100.0500 ####[facility] [address] [place], [place], [id number] Urea nitrogen [Mass/Vol] 20 mg/dL High 4-19 [facility] Comment on above: Order Comment: CBC Performed By: #### L 500.4050, L502.0250, L500.4100, L501.9985, L100.0500 ####[facility] [address] [place], [place], [id number] Creatinine Unsp time (U) [Ma ss/Vol]Ordered By: Mathieu Virgen on 11-28-2024 Creatinine (U) [Mass/Vol] 90.60 mg/dL 39-259 [facility] GFR/1.73 sq M.predicted ismael g non-blacks MDRD (S/P/Bld) [Vol rate/Area]Ordered By: Mathieu Virgen on 11-28-2024 Estimated GFR (MDRD) Non-Af Amer 76 >60 [facility] Comment on above: mL/min/1.73m2 CKD-EP I Creatinine Equation (2020) Glomerular filtration rate ( GFR) estimation/1.73 sq m using serum, plasma, or whole bOrdered By: Mathieu Virgen on 11-28-2024 GFR/1.73 sq M.predicted among non-blacks MDRD (S/P/Bld) [Vol rate/Area] 76 mL/min/{1.73_m2} >60 [facility] Comment on above: mL/min/1.73m2 CKD-EP I Creatinine Equation (2020) Hemoglobin A1con 11-28-2024 HbA1c (Bld) [Mass fraction] 7.0 % Normal <=5.6 [facility] Comment on above: Performed By: #### L 500.4050, L502.0250, L500.4100, L501.9985, L100.0500 ####[facility] [address] [place], [place], [id number] Hemoglobin A1c percentageOrd ered By: Mathieu Virgen on 11-28-2024 HbA1c (Bld) [Mass fraction] 7.0 % >5.7 [facility] LDL calc ser/plasOrdered By: Mathieu Virgen on 11-28-2024 Cholesterol in LDL [Mass/Vol] 52 mg/dL [facility] Comment on above: Rqiozklxpd=019-630 m g/dL & Higher Nqok=594 mg/dL or greater LDL Cholesterol, Calculated 52 mg/dL [facility] Comment on above: Sdasgwtwgb=263-316 m g/dL & Higher Dktm=113 mg/dL or greater Laboratory - Chemistry and C hemistry - challengeOrdered By: Mathieu Virgen on 11-28-2024 AST [Catalytic activity/Vol] 19 U/L <38 [facility] Lipid Profileon 11-28-2024 CHOL:HDL 3.06 Normal [facility] Comment on above: Performed By: #### L 500.4050, L502.0250, L500.4100, L501.9985, L100.0500 ####[facility] [address] [place], [place], [id number]([phone]) Cholesterol [Mass/Vol] 110 mg/dL Normal <=200 [facility] Comment on above: Result Comment: Chol esterol level, Desirable <200 mg/dLBorderline high cholesterol 200-239 mg/dLHigh cholesterol >=240 mg/dLRecommendations of the NCEP Adult Treatment Panel for thefollowing risk-cutoff thresholds for the [place] Americanpulation. Performed By: #### L 500.4050, L502.0250, L500.4100, L501.9985, L100.0500 ####[facility] [address] [place], [address] Cholesterol in HDL [Mass/Vol] 36 mg/dL Low [facility] Comment on above: Result Comment: [place] onal Cholesterol Education Program (NCEP) guidelines:<40 mg/dL: Low HDL-cholesterol (major risk factor for CHD)>= 60 mg/dL: High HDL-cholesterol (negative risk factor forCHD)HDL-cholesterol is affected by a number of factors, e.g.smoking, exercise, hormones, sex and age. Performed By: #### L 500.4050, L502.0250, L500.4100, L501.9985, L100.0500 ####[facility] [address] [place], [address] Cholesterol in LDL [Mass/Vol] 52 mg/dL Normal [facility] Comment on above: Result Comment: Bord xqukof=926-996 mg/dL Higher Ijwx=974 mg/dL or greater Performed By: #### L 500.4050, L502.0250, L500.4100, L501.9985, L100.0500 ####[facility] [address] [place], [address] Cholesterol in VLDL [Mass/Vol] 22 mg/dL Normal 5-40 [facility] Comment on above: Performed By: #### L 500.4050, L502.0250, L500.4100, L501.9985, L100.0500 ####[facility] [address] [place], [address] Triglyceride [Mass/Vol] 108 mg/dL Normal [facility] Comment on above: Result Comment: The drugs N-Acetylcysteine and Metamizole may falselydepress this assay.Normal range: <150 mg/dLBorderline High: 150-199 mg/dLHigh: 200-499 mg/dLVery High: >500 mg/dL Performed By: #### L 500.4050, L502.0250, L500.4100, L501.9985, L100.0500 ####[facility] [address] [place], [address] Microalb:Creat Ratio,Random URon 11-28-2024 MALB:CREAT 187.6 mg/g CRE Normal [facility] Comment on above: Performed By: #### L 500.4050, L502.0250, L500.4100, L501.9985, L100.0500 ####[facility] [address] [place], [address] Creatinine [Mass/Vol] 90.60 mg/dL Normal 39-259 [facility] Comment on above: Performed By: #### L 500.4050, L502.0250, L500.4100, L501.9985, L100.0500 ####[facility] [address] [place], [address] MICROALBUMIN,UR 17.0 mg/L Normal NO RANGE EST. [facility] Comment on above: Performed By: #### L 500.4050, L502.0250, L500.4100, L501.9985, L100.0500 ####[facility] [address] [place], [address] Microalbumin/creat ratio urO rdered By: Mathieu Virgen on 11-28-2024 Urine Microalbumin/Creatinine Ratio 187.6 mg/g CRE [facility] Potassium (Unsp spec) [Mass/ Vol]Ordered By: Mathieu Virgen on 11-28-2024 Potassium [Moles/Vol] 4.3 mmol/L 3.3-5.1 [facility] Potassium measurement (mass/ volume)Ordered By: Mathieu Virgen on 11-28-2024 Potassium (Unsp spec) [Mass/Vol] 4.3 mmol/L 3.3-5.1 [facility] Random urine creatinine nahomy urement (mass/volume)Ordered By: Mathieu Virgen on 11-28-2024 Creatinine Unsp time (U) [Mass/Vol] 90.60 mg/dL 39-259 [facility] Screening total cholesterol/ high density lipoprotein (HDL) cholesterol ratioOrdered By: Mathieu Virgen on 11-28-2024 Cholesterol.total/Cholester ol in HDL [Mass ratio] 3.06 {ratio} [facility] Serum creatinine measurement (mass/volume)Ordered By: Mathieu Virgen on 11-28-2024 Creatinine [Mass/Vol] 1.00 mg/dL 0.70-1.20 [facility] Serum globulin measurementOr dered By: Mathieu Virgen on 11-28-2024 Globulin (S) [Mass/Vol] 3.3 g/dL 2.2-4.2 [facility] Serum glucose measurement (m ass/volume)Ordered By: Mathieu Virgen on 11-28-2024 Glucose [Mass/Vol] 121 mg/dL High 70-99 [facility] Serum or plasma alanine cottrell otransferase (ALT) measurementOrdered By: Mathieu Virgen on 11-28-2024 ALT [Catalytic activity/Vol] 15 U/L <47 [facility] Serum or plasma albumin nahomy urement (mass/volume)Ordered By: Mathieu Virgen on 11-28-2024 Albumin [Mass/Vol] 4.0 g/dL 3.4-4.8 [facility] Serum or plasma albumin/glob ulin mass ratioOrdered By: Mathieu Virgen on 11-28-2024 Albumin/Globulin [Mass ratio] 1.2 {ratio} 0.9-2.4 [facility] Serum or plasma alkaline ahsan sphatase measurementOrdered By: Mathieu Virgen on 11-28-2024 ALP [Catalytic activity/Vol] 110 U/L 40-129 [facility] Serum or plasma calcium nahomy urement (mass/volume)Ordered By: Mathieu Virgen on 11-28-2024 Calcium [Mass/Vol] 9.3 mg/dL 7.6-11.0 [facility] Serum or plasma cholesterol in HDL measurement (mass/volume)Ordered By: Mathieu Virgen on 11-28-2024 Cholesterol in HDL [Mass/Vol] 36 mg/dL Low >40 [facility] Comment on above: National Cholesterol Education Program (NCEP) guidelines:<40 mg/dL: Low HDL-cholesterol (major risk factor for CHD)>= 60 mg/dL: High HDL-cholesterol (negative risk factor for CHD)HDL-cholesterol is affected by a number of factors, e.g. smoking, exercise, hormones, sex and age. Serum or plasma cholesterol measurement (mass/volume)Ordered By: Mathieu Virgen on 11-28-2024 Cholesterol [Mass/Vol] 110 mg/dL <201 [facility] Comment on above: Cholesterol level, D esirable <200 mg/dLBorderline high cholesterol 200-239 mg/dLHigh cholesterol >=240 mg/dLRecommendations of the NCEP Adult Treatment Panel for the following risk-cutoff thresholds for the [place] population. Serum or plasma urea nitroge n measurement (mass/volume)Ordered By: Mathieu Virgen on 11-28-2024 Urea nitrogen [Mass/Vol] 20 mg/dL High - [facility] Sodium levelOrdered By: Keny Virgen on 11-28-2024 Sodium [Moles/Vol] 136 mmol/L 133-145 [facility] Total proteinOrdered By: Louis faustovikas Virgen on 11-28-2024 Protein [Mass/Vol] 7.3 g/dL 5.9-8.4 [facility] Triglycerides measurementOrd ered By: Mathieu Virgen on 11-28-2024 Triglyceride [Mass/Vol] 108 mg/dL <199 [facility] Comment on above: The drugs N-Acetylcy steine and Metamizole may falsely depress this assay. Normal range: <150 mg/dLBorderline High: 150-199 mg/dLHigh: 200-499 mg/dLVery High: >500 mg/dL Urine albumin measurement wi detection limit of 20 mg/L or less (mass/volume)Ordered By: Mathieu Virgen on 11-28-2024 Albumin DL <= 20 mg/L (U) [Mass/Vol] 17.0 mg/L NO RANGE EST. [facility] Anion gap in Serum or Plasma Ordered By: Mathieu Virgen on 11-27-2024 Anion gap [Moles/Vol] 17 mmol/L High 01-29 [facility] BUN/creatinine ratioOrdered By: Mathieu Virgen on 11-27-2024 Urea nitrogen/Creatinine [Mass ratio] 18.3 mg/mg 07-06 [facility] Basic Metabolic Profile (BMP )on 11-27-2024 BUN/CRE 18.3 RATIO Normal 07-06 [facility] Comment on above: Performed By: #### L 501.5200, L500.2500 ####[facility] [address] [place], [address] Calcium [Mass/Vol] 9.3 mg/dL Normal 7.6-11.0 [facility] Comment on above: Performed By: #### L 501.5200, L500.2500 ####[facility] [address] [place], [address] Chloride [Moles/Vol] 100 mmol/L Normal 98-108 [facility] Comment on above: Performed By: #### L 501.5200, L500.2500 ####[facility] [address] [place], [address] CO2 [Moles/Vol] 18.9 mmol/L Low 21.0-32.0 [facility] Comment on above: Performed By: #### L 501.5200, L500.2500 ####[facility] [address] [place], [address] Creatinine [Mass/Vol] 1.19 mg/dL Normal 0.70-1.20 [facility] Comment on above: Performed By: #### L 501.5200, L500.2500 ####[facility] [address] [place], [address] GAP 17 High 5-15 [facility] Comment on above: Performed By: #### L 501.5200, L500.2500 ####[facility] [address] [place], [address] GFR/1.73 sq M.predicted among non-blacks MDRD (S/P/Bld) [Vol rate/Area] 62 mL/min/{1.73_m2} Normal >60 [facility] Comment on above: Result Comment: mL/m in/1.73m2 CKD-EPI Creatinine Equation (2020) Performed By: #### L 501.5200, L500.2500 ####[facility] [address] [place], [address] Glucose [Mass/Vol] 142 mg/dL High 70-99 [facility] Comment on above: Performed By: #### L 501.5200, L500.2500 ####[facility] [address] [place], [address] Potassium [Moles/Vol] 5.0 mmol/L Normal 3.3-5.1 [facility] Comment on above: Result Comment: Hemo lysis present, Results??could be affected.?? Performed By: #### L 501.5200, L500.2500 ####[facility] [address] [place], [address] Sodium [Moles/Vol] 136 mmol/L Normal 133-145 [facility] Comment on above: Performed By: #### L 501.5200, L500.2500 ####[facility] [address] [place], [address] Urea nitrogen [Mass/Vol] 22 mg/dL High 4-19 [facility] Comment on above: Performed By: #### L 501.5200, L500.2500 ####[facility] [address] [place], [address] BUN Normal 4-19 [facility] Comment on above: Result Comment: NEED REORDERED DUE TO MEDITECH ISSUE. Performed By: #### L 501.5200, L500.2500, L100.0500 ####[facility] [address] [place], [address] BUN/CRE Normal 10-20 [facility] Comment on above: Result Comment: NEED REORDERED DUE TO MEDITECH ISSUE. Performed By: #### L 501.5200, L500.2500, L100.0500 ####[facility] [address] [place], [address] Calcium Normal 7.6-11.0 [facility] Comment on above: Result Comment: NEED REORDERED DUE TO MEDITECH ISSUE. Performed By: #### L 501.5200, L500.2500, L100.0500 ####[facility] [address] [place], [address] CL Normal 98-108 [facility] Comment on above: Result Comment: NEED REORDERED DUE TO MEDITECH ISSUE. Performed By: #### L 501.5200, L500.2500, L100.0500 ####[facility] [address] [place], [address] CO2 Normal 21.0-32.0 [facility] Comment on above: Result Comment: NEED REORDERED DUE TO MEDITECH ISSUE. Performed By: #### L 501.5200, L500.2500, L100.0500 ####[facility] [address] [place], [address] CREAT,SERUM Normal 0.70-1.20 [facility] Comment on above: Result Comment: NEED REORDERED DUE TO MEDITECH ISSUE. Performed By: #### L 501.5200, L500.2500, L100.0500 ####[facility] [address] [place], [address] eGFR Normal >60 [facility] Comment on above: Result Comment: NEED REORDERED DUE TO MEDITECH ISSUE. Performed By: #### L 501.5200, L500.2500, L100.0500 ####[facility] [address] [place], [address] GAP Normal 5-15 [facility] Comment on above: Result Comment: NEED REORDERED DUE TO MEDITECH ISSUE. Performed By: #### L 501.5200, L500.2500, L100.0500 ####[facility] [address] [place], [address] GLU Normal 70-99 [facility] Comment on above: Result Comment: NEED REORDERED DUE TO MEDITECH ISSUE. Performed By: #### L 501.5200, L500.2500, L100.0500 ####[facility] [address] [place], [address] Potassium Normal 3.3-5.1 [facility] Comment on above: Result Comment: NEED REORDERED DUE TO MEDITECH ISSUE. Performed By: #### L 501.5200, L500.2500, L100.0500 ####[facility] [address] [place], [address] Basic Metabolic Profile (BMP) Normal 133-145 [facility] Comment on above: Result Comment: NEED REORDERED DUE TO MEDITECH ISSUE. Performed By: #### L 501.5200, L500.2500, L100.0500 ####[facility] [address] [place], [address] CBC-Complete Blood Cnt No Di ffon 11-27-2024 Erythrocyte distribution width (RBC) [Ratio] 17.0 % High 11.6-14.6 [facility] Comment on above: Performed By: #### L 501.5200, L500.2500, L100.0500 ####[facility] [address] [place], [address] Hematocrit (Bld) [Volume fraction] 43.7 % Normal 40-54 [facility] Comment on above: Performed By: #### L 501.5200, L500.2500, L100.0500 ####[facility] [address] [place], [address] Hemoglobin (Bld) [Mass/Vol] 14.3 g/dL Normal 13.0-16. 5 [facility] Comment on above: Performed By: #### L 501.5200, L500.2500, L100.0500 ####[facility] [address] [place], [address] MCH (RBC) [Entitic mass] 26.3 pg Low 27.0-32.0 [facility] Comment on above: Performed By: #### L 501.5200, L500.2500, L100.0500 ####[facility] [address] [place], [address] MCHC (RBC) [Mass/Vol] 32.7 g/dL Normal 32-36 [facility] Comment on above: Performed By: #### L 501.5200, L500.2500, L100.0500 ####[facility] [address] [place], [address] MCV (RBC) [Entitic vol] 80.5 fL Normal 80-94 [facility] Comment on above: Performed By: #### L 501.5200, L500.2500, L100.0500 ####[facility] [address] [place], [address] Platelet mean volume (Bld) [Entitic vol] 10.6 fL Normal 6.2-12.0 [facility] Comment on above: Performed By: #### L 501.5200, L500.2500, L100.0500 ####[facility] [address] [place], [address] Platelets (Bld) [#/Vol] 272 10*3/uL Normal 150-450 [facility] Comment on above: Performed By: #### L 501.5200, L500.2500, L100.0500 ####[facility] [address] [place], [address] RBC (Bld) [#/Vol] 5.43 10*6/uL Normal 4.6-6.2 [facility] Comment on above: Performed By: #### L 501.5200, L500.2500, L100.0500 ####[facility] [address] [place], [address] RDW SD 49.5 fl High 35.1-43.9 [facility] Comment on above: Performed By: #### L 501.5200, L500.2500, L100.0500 ####[facility] [address] [place], [address] WBC (Bld) [#/Vol] 11.5 10*3/uL High 4.4-11.0 [facility] Comment on above: Performed By: #### L 501.5200, L500.2500, L100.0500 ####[facility] [address] [place], [address] CNPNon 11-27-2024 [facility] Telephone (FAMPWS) FAISAL ALARCON ([id number]) 1945 Date Time Provider Department 11/27/24 MATHIEU VIRGEN [facility] During your visit today, we [...] Pure hypercholesterolemia [E78.00] Order(s):ADVANCE CARE PLAN DISCUSSION [4228550] Order #: [id number]: 1 LIPID PANEL BASIC [SQLIPB] Order #: [id number] FUTURE ALBUMIN/CREATININE RATIO, URINE [SQUACR] Order #: [id number] FUTURE HEMOGLOBIN A1C [SOLWU7V] Order #: [id number] FUTURE COMPLETE BLOOD COUNT [SQCBC] Order #: [id number] FUTURE COMPREHENSIVE METABOLIC PANEL [SQCMP] Order #: [id number] FUTURE Prescriptions as of 11/27/2024 - finasteride [...] - Blood-Glucose Meter,Continuous (FREESTYLE MARIELLE 3 READER) [facility] Use to check blood sugar at least [...] times a day before meals. Getting through [facility] - simvastatin (ZOCOR) 40 mg tablet Take 1 tablet by mouth daily at bedtime. - flecainide (TAMBOCOR) 150 mg tablet Take 1 tablet by mouth every 12 hours. Prescribed by outside supplier engineer - insulin glargine (BASAGLAR KWIKPEN U-100 INSULIN) [...] hypertension [I10] (more content not included)... Normal [facility] Carbon dioxide, total [Moles /volume] in Central venous bloodOrdered By: Mathieu Virgen on 11-27-2024 CO2 [Moles/Vol] 18.9 mmol/L Low 21.0-32.0 [facility] Chloride assayOrdered By: Shannon gaffneykisha Param on 11-27-2024 Chloride [Moles/Vol] 100 mmol/L 98-108 [facility] Erythrocyte distribution wid th ratioOrdered By: Mathieu Virgen on 11-27-2024 Erythrocyte distribution width (RBC) [Ratio] 17.0 % High 11.6-14.6 [facility] Erythrocyte distribution wid th standard deviationOrdered By: Mathieu Virgen on 11-27-2024 Erythrocyte distribution width (RBC) [Entitic vol] 49.5 fL High 35.1-43.9 [facility] Erythrocyte distribution width (RBC) [Ratio] 49.5 fl High 35.1-43.9 [facility] GFR/1.73 sq M.predicted ismael g non-blacks MDRD (S/P/Bld) [Vol rate/Area]Ordered By: Mathieu Virgen on 11-27-2024 Estimated GFR (MDRD) Non-Af Amer 62 >60 [facility] Comment on above: mL/min/1.73m2 CKD-EP I Creatinine Equation (2020) Glomerular filtration rate ( GFR) estimation/1.73 sq m using serum, plasma, or whole bOrdered By: Mathieu Virgen on 11-27-2024 GFR/1.73 sq M.predicted among non-blacks MDRD (S/P/Bld) [Vol rate/Area] 62 mL/min/{1.73_m2} >60 [facility] Comment on above: mL/min/1.73m2 CKD-EP I Creatinine Equation (2020) Hematocrit Auto (Bld) [Volum e fraction]Ordered By: Mathieu Virgen on 11-27-2024 Hematocrit (Bld) [Volume fraction] 43.7 % 40-54 [facility] Hemoglobin measurementOrdere d By: Mathieu Virgen on 11-27-2024 Hemoglobin (Bld) [Mass/Vol] 14.3 g/dL 13.0-16. 5 [facility] MCV (mean corpuscular volume ) determinationOrdered By: Mathieu Virgen on 11-27-2024 MCV (RBC) [Entitic vol] 80.5 fL 80-94 [facility] Magnesiumon 11-27-2024 Magnesium [Mass/Vol] 2.3 mg/dL High 1.5-2.2 [facility] Comment on above: Performed By: #### L 501.5200, L500.2500 ####[facility] [address] [place], [address] Magnesium [Mass/Vol] 2.3 mg/dL High 1.5-2.2 [facility] Comment on above: Order Comment: NEED REORDERED DUE TO MEDITECH ISSUE. Result Comment: NEED REORDERED DUE TO MEDITECH ISSUE. Performed By: #### L 501.5200, L500.2500, L100.0500 ####[facility] [address] [place], [address] Magnesium (Unsp spec) [Mass/ Vol]Ordered By: Mathieu Virgen on 11-27-2024 Magnesium [Mass/Vol] 2.3 mg/dL High 1.5-2.2 [facility] Magnesium measurement (mass/ volume)Ordered By: Mathieu Virgen on 11-27-2024 Magnesium (Unsp spec) [Mass/Vol] 2.3 mg/dL High 1.5-2.2 [facility] Mean corpuscular hemoglobin (MCH) determinationOrdered By: Mathieu Virgen on 11-27-2024 MCH (RBC) [Entitic mass] 26.3 pg Low 27.0-32.0 [facility] Mean corpuscular hemoglobin concentration (MCHC) determinationOrdered By: Mathieu Virgen on 11-27-2024 MCHC (RBC) [Mass/Vol] 32.7 g/dL 32-36 [facility] Mean platelet volume determi nationOrdered By: Mathieu Virgen on 11-27-2024 Platelet mean volume (Bld) [Entitic vol] 10.6 fL 6.2-12.0 [facility] Platelet countOrdered By: Shannon Virgen on 11-27-2024 Platelets (Bld) [#/Vol] 272 10*3/uL 150-450 [facility] Potassium (Unsp spec) [Mass/ Vol]Ordered By: Mathieu Virgen on 11-27-2024 Potassium [Moles/Vol] 5.0 mmol/L 3.3-5.1 [facility] Comment on above: Hemolysis present, R esults could be affected. Potassium measurement (mass/ volume)Ordered By: Mathieu Virgen on 11-27-2024 Potassium (Unsp spec) [Mass/Vol] 5.0 mmol/L 3.3-5.1 [facility] Comment on above: Hemolysis present, R esults could be affected. RBC Auto (Bld) [#/Vol]Ordere d By: Mathieu Virgen on 11-27-2024 RBC (Bld) [#/Vol] 5.43 10*6/uL 4.6-6.2 [facility] Serum creatinine measurement (mass/volume)Ordered By: Mathieu Virgen on 11-27-2024 Creatinine [Mass/Vol] 1.19 mg/dL 0.70-1.20 [facility] Serum glucose measurement (m ass/volume)Ordered By: Mathieu Virgen on 11-27-2024 Glucose [Mass/Vol] 142 mg/dL High 70-99 [facility] Serum or plasma calcium nahomy urement (mass/volume)Ordered By: Mathieu Virgen on 11-27-2024 Calcium [Mass/Vol] 9.3 mg/dL 7.6-11.0 [facility] Serum or plasma urea nitroge n measurement (mass/volume)Ordered By: Mathieu Virgen on 11-27-2024 Urea nitrogen [Mass/Vol] 22 mg/dL High 4-19 [facility] Sodium levelOrdered By: Keny Virgen on 11-27-2024 Sodium [Moles/Vol] 136 mmol/L 133-145 [facility] White blood cell (WBC) count Ordered By: Mathieu Virgen on 11-27-2024 WBC (Bld) [#/Vol] 11.5 10*3/uL High 4.4-11.0 [facility] CNPNon 11-26-2024 CNPN Telephone (PEPE) FAISAL ALARCON ([id number]) 1945 M Date Time Provider Department 11/26/24 [...] 5:18 PM Signed Left detailed message on [employer]. Allergies As of Date: 11/26/2024 Noted Allergy [...] - Blood-Glucose Meter,Continuous (FREESTYLE MARIELLE 3 READER) [facility] Use to check blood sugar at least [...] times a day before meals. Getting through [facility] - simvastatin (ZOCOR) 40 mg tablet Take 1 tablet by mouth daily at bedtime. - flecainide (TAMBOCOR) 150 mg tablet Take 1 tablet by mouth every 12 hours. Prescribed by outside supplier engineer - insulin glargine (BASAGLAR KWIKPEN U-100 INSULIN) [...] 06/09/2011 0 (more content not included)... Normal [facility] Ema 11-24-2024 [facility] Telephone (FAMPWS) FAISAL ALARCON ([id number]) 1945 M Date Time Provider Department 11/24/24 [...] - Blood-Glucose Meter,Continuous (FREESTYLE MARIELLE 3 READER) [facility] Use to check blood sugar at least [...] mouth every 12 hours. Prescribed by outside supplier engineer - insulin glargine (BASAGLAR KWIKPEN U-100 INSULIN) [...] breath) [R06.02] (more content not included)... [facility] Telephone (COLIN) FAISAL ALARCON ([id number]) 1945 M Date Time Provider Department 11/12/24 [facility]IR[facility] During your visit today, we recorded the [...] back to schedule sooner appointment. JOSE ARMANDO Raímrez [place], [place] 11/24/2024 10:44 AM Signed Scheduled [...] fifteen (15 (more content not included)... Normal [facility] Bedside Glucoseon 11-03-2024 [facility] GLU 132 mg/dL High -106 [facility] Comment on above: Result Comment: URSULA GEMENT OF PATIENT CARE PER NURSING PROTOCOL Performed By: #### L 501.080 ####[facility] [address] [place]. [facility] [address] FINGERSTICK GLU 108 mg/dL High [address] [place] [address] Comment on above: Result Comment: URSULA GEMENT OF PATIENT CARE PER NURSING PROTOCOL Performed By: #### L 501.080 ####[facility] [address] [place], [address] FINGERSTICK GLU 55 mg/dL Low -[address] [place] [address] Comment on above: Result Comment: URSULA GEMENT OF PATIENT CARE PER NURSING PROTOCOL Performed By: #### L 501.080 ####[facility] [address] [place], [address] Emergency Department Summary on 11-03-2024 Emergency Department Summary Normal [facility] Glucose measurement at [facility] deOrdered By: Qasim Senior on 11-03-2024 [facility] 132 mg/dL High 74-106 [facility] Comment on above: MANAGEMENT OF PATIEN T CARE PER NURSING PROTOCOL Glucose [Mass/Vol] 132 mg/dL High 74-106 [facility] Comment on above: MANAGEMENT OF PATIEN T CARE PER NURSING PROTOCOL CNOVon 10-31-2024 CNOV Office Visit (FAMPWS ) FAISAL ALARCON ([id number]) 1945 M Date Time Provider Department 10/31/24 3:00 PM [facility]ALL [facility] During your visit today, we recorded the following information about you: Pulse Respiration Blood pressure Weight 78/minute 18/minute 114/68 124.3 kg Sukh Hall APRN.CBX OPERATOR 10/31/2024 3:16 PM Signed Chief Complaint Patient [...] day. Blood-Glucose Meter,Continuous (FREESTYLE MARIELLE 3 READER) [facility] Use to check blood sugar at least [...] 1 safia (more content not included)... Normal [facility] [facility] FAISAL ALARCON ([id number]) 1945 M Date Time Provider Department 10/31/24 MATHIEU VIRGEN [facility] During your visit today, we recorded the following information about you: Jackelin Tinajeor, RN 10/31/2024 2:42 PM Signed Call placed [...] waiting for a new C-pap machine from [facility]. (Nisha is calling them to ask [...] - Blood-Glucose Meter,Continuous (FREESTYLE MARIELLE 3 READER) [facility] Use to check blood sugar at least [...] times a day before meals. Getting through [facility] - dilTIAZem CD (CARDIZEM CD, CARTIA XT) 120 mg 24 hr capsule Take 1 capsule by mouth once daily. - simvastatin (ZOCOR) 40 mg tablet Take 1 tablet by mouth daily at bedtime. - flecainide (TAMBOCOR) 150 mg tablet Take 1 tablet by mouth every 12 hours. Prescribed by outside supplier engineer - insulin glargine (BASAGLAR KWIKPEN U-100 INSULIN) [...] microalbuminuria *04/18 (more content not included)... Normal [facility]NPNon 10-16-[address] [facility] [facility] [facility] FAISAL ALARCON ([id number]) 1945 Date Time Provider Department 10/16/24 MATHIEU VIRGEN [facility] During your visit today, we [...] get one. Please phone Farida with reply: [phone] Mathieu Virgen MD 10/16/2024 10:35 AM Signed Do we have anything like that available? Might need to buy one if not Lulu Walls MA 10/16/2024 11:55 AM Signed We do not have samples. Spoke with daughter Farida and informed her of this. She is requesting a Rx for the Dexcom sensors (G7) to the [facility] in [place] while waiting for the company to ship [...] - Blood-Glucose Meter,Continuous (FREESTYLE MARIELLE 3 READER) [facility] Use to check blood sugar at least [...] mouth every 12 hours. Prescribed by outside supplier engineer - insulin glargine (BASAGLAR KWIKPEN U-100 INSULIN) [...] 06/06/2023 Tu (more content not included)... Normal [facility] Basic Metabolic Profile (BMP )on 10-07-2024 BUN/CRE 26.7 RATIO High 10-20 [facility] Comment on above: Performed By: #### L 500.2500 ####[facility] [address] [place], [address] CA,Total 9.6 mg/dL Normal 8.5-10.1 [facility] Comment on above: Performed By: #### L 500.2500 ####[facility] [address] [place], [address] Chloride [Moles/Vol] 104 mmol/L Normal 98-107 [facility] Comment on above: Performed By: #### L 500.2500 ####[facility] [address] [place], [address] CO2 [Moles/Vol] 26.0 mmol/L Normal 21.0-32.0 [facility] Comment on above: Performed By: #### L 500.2500 ####[facility] [address] [place], [address] Creatinine [Mass/Vol] 1.20 mg/dL Normal 0.70-1.30 [facility] Comment on above: Result Comment: The validity of the calculated GFR GFRAA in patients over70 years has not been determined. Clinical correlation isessential. Performed By: #### L 500.2500 ####[facility] [address] [place], [address] EST GFR - AA 75 mL/min Normal >60 [facility] Comment on above: Result Comment: Afri can Tanzanian GFR Calc Performed By: #### L 500.2500 ####[facility] [address] [place], [address] GAP 6 Normal 5-15 [facility] Comment on above: Performed By: #### L 500.2500 ####[facility] [address] [place], [address] GFR/1.73 sq M.predicted among non-blacks MDRD (S/P/Bld) [Vol rate/Area] 62 mL/min/{1.73_m2} Normal >60 [facility] Comment on above: Result Comment: Non- GFR Calc Performed By: #### L 500.2500 ####[facility] [address] [place], [address] Glucose [Mass/Vol] 142 mg/dL High 74-106 [facility] Comment on above: Result Comment: Fast ing Glucose result greater than or equal to 126 mg/dLsuggests DIABETES MELLITUS per A.D.A. criteria. Performed By: #### L 500.2500 ####[facility] [address] [place], [address] Potassium [Moles/Vol] 4.3 mmol/L Normal 3.5-5.1 [facility] Comment on above: Performed By: #### L 500.2500 ####[facility] [address] [place], [address] Sodium [Moles/Vol] 136 mmol/L Normal 136-145 [facility] Comment on above: Performed By: #### L 500.2500 ####[facility] [address] [place], [address] Urea nitrogen [Mass/Vol] 32 mg/dL High 7-18 [facility] Comment on above: Performed By: #### L 500.2500 ####[facility] [address] [place], [address] Blood urea nitrogen (BUN)/cr eatinine ratioOrdered By: Tierra Gilbert on 10-07-2024 Urea nitrogen/Creatinine [Mass ratio] 26.7 mg/mg High 10-20 [facility] Carbon dioxide measurementOr dered By: Tierra Gilbert on 10-07-2024 CO2 [Moles/Vol] 26.0 mmol/L 21.0-32.0 [facility] Chloride measurementOrdered By: Tierra Gilbert on 10-07-2024 Chloride [Moles/Vol] 104 mmol/L 98-107 [facility] Estimated glomerular filtrat ion rate (GFR) AmericanOrdered By: Tierra Gilbert on 10-07-2024 Estimated GFR (MDRD) Amer 75 mL/min >60 [facility] Comment on above: GFR Calc Glomerular filtration rate ( GFR) estimationOrdered By: Tierra Gilbert on 10-07-2024 Estimated GFR (MDRD) Non-Af Amer 62 mL/min >60 [facility] Comment on above: Non- GFR Calc GFR/1.73 sq M.predicted among non-blacks MDRD (S/P/Bld) [Vol rate/Area] 62 mL/min/{1.73_m2} >60 [facility] Comment on above: Non- GFR Calc Glucose measurementOrdered B y: Tierra Gilbert on 10-07-2024 Glucose [Mass/Vol] 142 mg/dL High 74-106 [facility] Comment on above: Fasting Glucose resu lt greater than or equal to 126 mg/dL suggests DIABETES MELLITUS per A.D.A. criteria. Potassium measurementOrdered By: Tierra Gilbert on 10-07-2024 Potassium [Moles/Vol] 4.3 mmol/L 3.5-5.1 [facility] Serum anion gap measurementO rdered By: Tierra Gilbert on 10-07-2024 Anion gap [Moles/Vol] 6 mmol/L 5-15 [facility] Serum or plasma calcium nahomy urement (mass/volume)Ordered By: Tierra Gilbert on 10-07-2024 Calcium [Mass/Vol] 9.6 mg/dL 8.5-10.1 [facility] Serum or plasma creatinine m easurement (mass/volume)Ordered By: Tierra Gilbert on 10-07-2024 Creatinine [Mass/Vol] 1.20 mg/dL 0.70-1.30 [facility] Comment on above: The validity of the calculated GFR & GFRAA in patients over 70 years has not been determined. Clinical correlation is essential. Serum or plasma urea nitroge n measurement (mass/volume)Ordered By: Tierra Gilbert on 10-07-2024 Urea nitrogen [Mass/Vol] 32 mg/dL High 7-18 [facility] Sodium levelOrdered By: Misbah Gilbert on 10-07-2024 Sodium [Moles/Vol] 136 mmol/L 136-145 [facility] CNOVon 09-23-2024 CNOV Office Visit [facility] FAISAL ALARCON ([id number]) 1945 M Date Time Provider Department 09/23/24 2:40 PM [facility] During your visit today, we recorded the following information about you: Pulse Respiration Blood pressure Weight 79/minute 16/minute 118/68 127.9 kg Denisha Shepard APRN.CBX OPERATOR 09/23/2024 6:18 PM Signed This is a 79 year old male who presents today with: Patient presents with: ER F/U: [facility] ER 09/20/24 dx:CP HISTORY OF PRESENT ILLNESS: Faisal Alarcon is a 79 year old male. Patient presents with: ER F/U: [facility] ER 09/20/24 dx:CP Patient presents today for emergency room follow-up. He went to the emergency room on 09/20/2024 with complaints of chest discomfort. He had been given nitroglycerin by EMS that did improve his pain. He had negative cardiac enzymes and stable lab work. There was no STEMI. The emergency room did consult patient's supplier engineer, and it was recommended to start patient [...] day. Blood-Glucose Meter,Continuous (FREESTYLE MARIELLE 3 READER) [facility] Use to check blood sugar at least [...] mouth every 12 hours. Prescribed by outside supplier engineer insulin glargine (BASAGLAR KWIKPEN U-100 INSULIN) 100 [...] Insulin Syri (more content not included)... Normal [facility] Cardiology Visit Reporton Cardiology Visit Report Normal [facility] CBC W/Diff, Automatedon PATH REV Reviewed Normal [facility] Comment on above: Result Comment: Leuk ocytosis.Clinical correlation necessary.Callum Arteaga M.D. 09/22/24 AMENDED REPORT 09/22/24 1321 PATH REV previously reported as: January joana Performed By: #### L 501.5463, L500.2500, L100.0100 ####[facility] [address] [place], [address] Ema 09-22-2024 YAKOV Telephone (EDISWS) FAISAL ALARCON ([id number]) 1945 M Date Time Provider Department 09/22/24 DEN[facility]HA SHEPARD [facility] During your visit today, we recorded the following information about you: Liyah Monroy, RN 09/22/2024 1:03 PM Signed Pts daughter called in and reports her father was in [facility] ER 09/20/24. She reports Pt was having chest pain and that is why he went to the ER. Pts daughter states they didn't find anything wrong with him, everything was the same as before. Pt scheduled with Denisha Shepard ALIGNER TYPEWRITER 09/23/24 at 240 pm. She reports he father has been feeling lightheaded and dizzy, and she thinks it's because on 09/13/[address] Ponce double his dose of Lasix. [...] - Blood-Glucose Meter,Continuous (FREESTYLE MARIELLE 3 READER) [facility] Use to check blood sugar at least [...] mouth every 12 hours. Prescribed by outside supplier engineer - insulin glargine (BASAGLAR KWIKPEN U-100 INSULIN) [...] condition wi* (more content not included)... Normal [facility] 12 Lead EKGon 09-20-2024 12 Lead EKG Normal [facility] 12 Lead EKG Normal [facility] Absolute neutrophil countOrd ered By: Reji Smith on 09-20-2024 Neutrophils (Bld) [#/Vol] 7.5 10*3/uL 2.0-7.7 [facility] Basic Metabolic Profile (BMP )on 01-04-2025 BUN/CRE 21.4 RATIO High 10-20 [facility] Comment on above: Order Comment: 1Y Performed By: #### L 501.5425, L500.2500, L100.0100 ####[facility] [address] [place], [address] CA,Total 9.5 mg/dL Normal 8.5-10.1 [facility] Comment on above: Order Comment: 1Y Performed By: #### L 501.5425, L500.2500, L100.0100 ####[facility] [address] [place], [address] Chloride [Moles/Vol] 102 mmol/L Normal 98-107 [facility] Comment on above: Order Comment: 1Y Performed By: #### L 501.5425, L500.2500, L100.0100 ####[facility] [address] [place], [address] CO2 [Moles/Vol] 27.0 mmol/L Normal 21.0-32.0 [facility] Comment on above: Order Comment: 1Y Performed By: #### L 501.5425, L500.2500, L100.0100 ####[facility] [address] [place], [address] Creatinine [Mass/Vol] 1.26 mg/dL Normal 0.70-1.30 [facility] Comment on above: Order Comment: 1Y Result Comment: The validity of the calculated GFR GFRAA in patients over70 years has not been determined. Clinical correlation isessential. Performed By: #### L 501.5425, L500.2500, L100.0100 ####[facility] [address] [place], [address] ECRCL 66.12 ml/min Normal [facility] Comment on above: Order Comment: 1Y Performed By: #### L 501.5425, L500.2500, L100.0100 ####[facility] [address] [place], [address] EST GFR - AA 71 mL/min Normal >60 [facility] Comment on above: Order Comment: 1Y Result Comment: Afri can Tanzanian GFR Calc Performed By: #### L 501.5425, L500.2500, L100.0100 ####[facility] [address] [place], [address] GAP 8 Normal 5-15 [facility] Comment on above: Order Comment: 1Y Performed By: #### L 501.5425, L500.2500, L100.0100 ####[facility] [address] [place], [address] GFR/1.73 sq M.predicted among non-blacks MDRD (S/P/Bld) [Vol rate/Area] 59 mL/min/{1.73_m2} Low >60 [facility] Comment on above: Order Comment: 1Y Result Comment: Non- GFR Calc Performed By: #### L 501.5425, L500.2500, L100.0100 ####[facility] [address] [place], [address] Glucose [Mass/Vol] 147 mg/dL High 74-106 [facility] Comment on above: Order Comment: 1Y Result Comment: Fast ing Glucose result greater than or equal to 126 mg/dLsuggests DIABETES MELLITUS per A.D.A. criteria. Performed By: #### L 501.5425, L500.2500, L100.0100 ####[facility] [address] [place], [address] Potassium [Moles/Vol] 3.8 mmol/L Normal 3.5-5.1 [facility] Comment on above: Order Comment: 1Y Performed By: #### L 501.5425, L500.2500, L100.0100 ####[facility] [address] [place], [address] Sodium [Moles/Vol] 137 mmol/L Normal 136-145 [facility] Comment on above: Order Comment: 1Y Performed By: #### L 501.5425, L500.2500, L100.0100 ####[facility] [address] [place], [address] Urea nitrogen [Mass/Vol] 27 mg/dL High 7-18 [facility] Comment on above: Order Comment: 1Y Performed By: #### L 501.5425, L500.2500, L100.0100 ####[facility] [address] [place], [address] Basophil percentageOrdered B y: Reji Smith on 09-20-2024 Basophils/100 WBC (Bld) 0.4 % 0-1 [facility] Blood urea nitrogen (BUN)/cr eatinine ratioOrdered By: Reji Smith on 09-20-2024 Urea nitrogen/Creatinine [Mass ratio] 21.4 mg/mg High 10-20 [facility] Carbon dioxide measurementOr dered By: Reji Smith on 09-20-2024 CO2 [Moles/Vol] 27.0 mmol/L 21.0-32.0 [facility] Chest 1 View (Portable)on Chest 1 View (Portable) Normal [facility] Chloride measurementOrdered By: Reji Smith on 09-20-2024 Chloride [Moles/Vol] 102 mmol/L 98-107 [facility] Emergency Department Summary on 09-20-2024 Emergency Department Summary Normal [facility] Eosinophil percentageOrdered By: Reji Smith on 09-20-2024 Eosinophils/100 WBC (Bld) 2.9 % 0-5 [facility] Erythrocyte distribution wid th ratioOrdered By: Reji Smith on 09-20-2024 Erythrocyte distribution width (RBC) [Ratio] 15.0 % High 11.6-14.6 [facility] Erythrocyte distribution wid th standard deviationOrdered By: Reji Smith on 09-20-2024 Erythrocyte distribution width (RBC) [Entitic vol] 43.9 fL 35.1-43.9 [facility] Estimated glomerular filtrat ion rate (GFR) AmericanOrdered By: Reji Smith on 09-20-2024 Estimated GFR (MDRD) Amer 71 mL/min >60 [facility] Comment on above: GFR Calc Estimation of creatinine ashley aranceOrdered By: Reji Smith on 09-20-2024 Estimated Creatinine Clearance Calc 66.12 ml/min [facility] Glomerular filtration rate ( GFR) estimationOrdered By: Reji Smith on 09-20-2024 Estimated GFR (MDRD) Non-Af Amer 59 mL/min Low >60 [facility] Comment on above: Non- GFR Calc Glucose measurementOrdered B y: Reji Smith on 09-20-2024 Glucose [Mass/Vol] 147 mg/dL High 74-106 [facility] Comment on above: Fasting Glucose resu lt greater than or equal to 126 mg/dL suggests DIABETES MELLITUS per A.D.A. criteria. Hematocrit Auto (Bld) [Volum e fraction]Ordered By: Reji Smith on 09-20-2024 Hematocrit (Bld) [Volume fraction] 43.8 % 40-54 [facility] Hemoglobin measurementOrdere d By: Reji Smith on 09-20-2024 Hemoglobin (Bld) [Mass/Vol] 13.9 g/dL 13.0-16. 5 [facility] Immature granulocytes/100 WB C Auto (Bld)Ordered By: Reji Smith on 09-20-2024 Immature granulocytes/100 WBC (Bld) 0.400 % 0.0-0.9 [facility] Comment on above: IG% - Immature Granu locytes (promyelocytes, myelocytes and metamyelocytes) > 1% indicates that a LEFT SHIFT is Present. L501.4020on 09-20-2024 TROPONIN-I HS 8 pg/mL Normal 3.0-78.0 [facility] Comment on above: Result Comment: Plerodríguez irwin Note: New Test Units and Gender Specific Reference Ranges. For more information see Policy Stat Procedure [place] High Sensitivity Troponin (TNIH) and attachments. Performed By: #### L 501.4020 ####[facility] [address] [place], [address] L501.5425on 09-20-2024 TROPONIN-I HS 10 pg/mL Normal 3.0-78.0 [facility] Comment on above: Order Comment: 1Y Result Comment: Hannah irwin Note: New Test Units and Gender Specific Reference Ranges. For more information see Policy Stat Procedure [place] High Sensitivity Troponin (TNIH) and attachments. Performed By: #### L 501.5425, L500.2500, L100.0100 ####[facility] [address] [place], [address] Lymphocytes Auto (Unsp spec) [#/Vol]Ordered By: Reji Smith on 09-20-2024 Lymphocytes (Bld) [#/Vol] 1.85 10*3/uL 0.83-4.5 1 [facility] Lymphocytes/100 WBC Auto (Un sp spec)Ordered By: Reji Smith on 09-20-2024 Lymphocytes/100 WBC (Bld) 16.3 % Low 19-41 [facility] MCV (mean corpuscular volume ) determinationOrdered By: Reji Smith on 09-20-2024 MCV (RBC) [Entitic vol] 80.4 fL 80-94 [facility] Manual differential comment Rey (Bld) [Interp]Ordered By: Reji Smith on 09-20-2024 Differential Comment SCANNED [facility] Comment on above: MONOCYTOSIS NOTED Mean corpuscular hemoglobin (MCH) determinationOrdered By: Reji Smith on 09-20-2024 MCH (RBC) [Entitic mass] 25.5 pg Low 27.0-32.0 [facility] Mean corpuscular hemoglobin concentration (MCHC) determinationOrdered By: Reji Smith on 09-20-2024 MCHC (RBC) [Mass/Vol] 31.7 g/dL Low 32-36 [facility] Mean platelet volume determi nationOrdered By: Reji Smith on 09-20-2024 Platelet mean volume (Bld) [Entitic vol] 11.3 fL 6.2-12.0 [facility] Monocyte percentageOrdered B y: Reji Smith on 09-20-2024 Monocytes/100 WBC (Bld) 14.0 % High 0-10 [facility] Neutrophil percentageOrdered By: Reji Smith on 09-20-2024 Neutrophils/100 WBC (Bld) 66.0 % 47-70 [facility] Nucleated red blood cell per centageOrdered By: Reji Smith on 09-20-2024 Nucleated RBC/100 WBC (Bld) [Ratio] 0 % 0-5 [facility] Pathologist review Rey (Unsp spec) [Interp]Ordered By: Reji Smith on 09-20-2024 Differential Pathologist's Review Reviewed [facility] Comment on above: Previous reported re sult: January joana Edited by: IRON on 09/22/24:1321Leukocytosis.Clinical correlation necessary.Callum Arteaga M.D. 09/22/24 AMENDED REPORT 09/22/24 1321 PATH REV previously reported as: Tamara bernard Platelet countOrdered By: Kevin Smith on 09-20-2024 Platelets (Bld) [#/Vol] 284 10*3/uL 150-450 [facility] Potassium measurementOrdered By: Reji Smith on 09-20-2024 Potassium [Moles/Vol] 3.8 mmol/L 3.5-5.1 [facility] RBC Auto (Bld) [#/Vol]Ordere d By: Reji Smith on 09-20-2024 RBC (Bld) [#/Vol] 5.45 10*6/uL 4.6-6.2 [facility] Serum anion gap measurementO rdered By: Reji mSith on 09-20-2024 Anion gap [Moles/Vol] 8 mmol/L 5-15 [facility] Serum or plasma calcium nahomy urement (mass/volume)Ordered By: Reji Smith on 09-20-2024 Calcium [Mass/Vol] 9.5 mg/dL 8.5-10.1 [facility] Serum or plasma creatinine m easurement (mass/volume)Ordered By: Reji Smith on 09-20-2024 Creatinine [Mass/Vol] 1.26 mg/dL 0.70-1.30 [facility] Comment on above: The validity of the calculated GFR & GFRAA in patients over 70 years has not been determined. Clinical correlation is essential. Serum or plasma urea nitroge n measurement (mass/volume)Ordered By: Reji Smith on 09-20-2024 Urea nitrogen [Mass/Vol] 27 mg/dL High 04-03 [facility] Sodium levelOrdered By: Reji Smith on 09-20-2024 Sodium [Moles/Vol] 137 mmol/L 136-145 [facility] Troponin IOrdered By: Reji sawyer on 09-20-2024 Troponin I High Sensitivity 8 pg/mL 3.0-78.0 [facility] Comment on above: Please Note: New Carmen t Units and Gender Specific Reference Ranges. For more information see Policy Stat Procedure [place] High Sensitivity Troponin (TNIH) and attachments. White blood cell (WBC) count Ordered By: Reji Smith on 09-20-2024 WBC (Bld) [#/Vol] 11.4 10*3/uL High 4.4-11.0 [facility] Cardiology Visit Reporton Cardiology Visit Report Normal [facility] Urine Cultureon 09-02-2024 [facility] Mixed Gram Positive Organisms [place] Count 80,000-100,000 [facility] Mixed contaminants. Submit a new specimen if indicated. Normal [facility] Comment on above: Performed By: #### M 100.2200 ####[facility] [address] [place], [address] 12 Lead EKGon 09-01-2024 12 Lead EKG Normal [facility] Abdomen/Pelvis W IV Cont ONL Yon 09-01-2024 Abdomen/Pelvis W IV Cont ONLY Normal [facility] Absolute neutrophil countOrd ered By: Mani Esquivel on 09-01-2024 Neutrophils (Bld) [#/Vol] 7.5 10*3/uL 2.0-7.7 [facility] Basic Metabolic Profile (BMP )on 09-01-2024 BUN/CRE 28.1 RATIO High - [facility] Comment on above: Order Comment: 'TROP ' Serial specimen #1, #2 or #3: 1 Performed By: #### L 501.5200, L500.2500, L100.0100, L501.4020 ####[facility] [address] [place], [address] CA,Total 9.3 mg/dL Normal 8.5-10.1 [facility] Comment on above: Order Comment: 'TROP ' Serial specimen #1, #2 or #3: 1 Performed By: #### L 501.5200, L500.2500, L100.0100, L501.4020 ####[facility] [address] [place], [address] Chloride [Moles/Vol] 106 mmol/L Normal 98-107 [facility] Comment on above: Order Comment: 'TROP ' Serial specimen #1, #2 or #3: 1 Performed By: #### L 501.5200, L500.2500, L100.0100, L501.4020 ####[facility] [address] [place], [address] CO2 [Moles/Vol] 24.0 mmol/L Normal 21.0-32.0 [facility] Comment on above: Order Comment: 'TROP ' Serial specimen #1, #2 or #3: 1 Performed By: #### L 501.5200, L500.2500, L100.0100, L501.4020 ####[facility] [address] [place], [address] Creatinine [Mass/Vol] 1.14 mg/dL Normal 0.70-1.30 [facility] Comment on above: Order Comment: 'TROP ' Serial specimen #1, #2 or #3: 1 Result Comment: The validity of the calculated GFR GFRAA in patients over70 years has not been determined. Clinical correlation isessential. Performed By: #### L 501.5200, L500.2500, L100.0100, L501.4020 ####[facility] [address] [place], [address] ECRCL 73.93 ml/min Normal [facility] Comment on above: Order Comment: 'TROP ' Serial specimen #1, #2 or #3: 1 Performed By: #### L 501.5200, L500.2500, L100.0100, L501.4020 ####[facility] [address] [place], [address] EST GFR - AA 79 mL/min Normal >60 [facility] Comment on above: Order Comment: 'TROP ' Serial specimen #1, #2 or #3: 1 Result Comment: Afri can Tanzanian GFR Calc Performed By: #### L 501.5200, L500.2500, L100.0100, L501.4020 ####[facility] [address] [place], [address] GAP 7 Normal 5-15 [facility] Comment on above: Order Comment: 'TROP ' Serial specimen #1, #2 or #3: 1 Performed By: #### L 501.5200, L500.2500, L100.0100, L501.4020 ####[facility] [address] [place], [address] GFR/1.73 sq M.predicted among non-blacks MDRD (S/P/Bld) [Vol rate/Area] 66 mL/min/{1.73_m2} Normal >60 [facility] Comment on above: Order Comment: 'TROP ' Serial specimen #1, #2 or #3: 1 Result Comment: Non- GFR Calc Performed By: #### L 501.5200, L500.2500, L100.0100, L501.4020 ####[facility] [address] [place], [address] Glucose [Mass/Vol] 98 mg/dL Normal 74-106 [facility] Comment on above: Order Comment: 'TROP ' Serial specimen #1, #2 or #3: 1 Performed By: #### L 501.5200, L500.2500, L100.0100, L501.4020 ####[facility] [address] [place], [address] Potassium [Moles/Vol] 3.6 mmol/L Normal 3.5-5.1 [facility] Comment on above: Order Comment: 'TROP ' Serial specimen #1, #2 or #3: 1 Performed By: #### L 501.5200, L500.2500, L100.0100, L501.4020 ####[facility] [address] [place], [address] Sodium [Moles/Vol] 138 mmol/L Normal 136-145 [facility] Comment on above: Order Comment: 'TROP ' Serial specimen #1, #2 or #3: 1 Performed By: #### L 501.5200, L500.2500, L100.0100, L501.4020 ####[facility] [address] [place], [address] Urea nitrogen [Mass/Vol] 32 mg/dL High - [facility] Comment on above: Order Comment: 'TROP ' Serial specimen #1, #2 or #3: 1 Performed By: #### L 501.5200, L500.2500, L100.0100, L501.4020 ####[facility] [address] [place], [address] Basophil percentageOrdered B y: Mani Esquivel on 09-01-2024 Basophils/100 WBC (Bld) 0.4 % 0-1 [facility] Bilirubin Test strip Ql (U)O rdered By: Mani Esquivel on 09-01-2024 Bilirubin Ql (U) Negative Negative [facility] Blood urea nitrogen (BUN)/cr eatinine ratioOrdered By: Mani Esquivel on 09-01-2024 Urea nitrogen/Creatinine [Mass ratio] 28.1 mg/mg High 10-20 [facility] CBC W/Diff, Automatedon 08-17 Absolute Lymph 2.06 X10 3/uL Normal 0.83-4.51 [facility] Comment on above: Performed By: #### L 501.5200, L500.2500, L100.0100, L501.4020 ####[facility] [address] [place], [address] Absolute Neut 7.5 X10 3/uL Normal 2.0-7.7 [facility] Comment on above: Performed By: #### L 501.5200, L500.2500, L100.0100, L501.4020 ####[facility] [address] [place], [address] Basophils/100 WBC (Bld) 0.4 % Normal 0-1 [facility] Comment on above: Performed By: #### L 501.5200, L500.2500, L100.0100, L501.4020 ####[facility] [address] [place], [address] Eosinophils/100 WBC (Bld) 2.9 % Normal 0-5 [facility] Comment on above: Performed By: #### L 501.5200, L500.2500, L100.0100, L501.4020 ####[facility] [address] [place], [address] Erythrocyte distribution width (RBC) [Ratio] 15.3 % High 11.6-14.6 [facility] Comment on above: Performed By: #### L 501.5200, L500.2500, L100.0100, L501.4020 ####[facility] [address] [place], [address] Hematocrit (Bld) [Volume fraction] 41.4 % Normal 40-54 [facility] Comment on above: Performed By: #### L 501.5200, L500.2500, L100.0100, L501.4020 ####[facility] [address] [place], [address] Hemoglobin (Bld) [Mass/Vol] 13.1 g/dL Normal 13.0-16. 5 [facility] Comment on above: Performed By: #### L 501.5200, L500.2500, L100.0100, L501.4020 ####[facility] [address] [place], [address] IG% 0.300 Normal 0.0-0.9 [facility] Comment on above: Result Comment: IG% - Immature Granulocytes (promyelocytes, myelocytes andmetamyelocytes) > 1% indicates that a LEFT SHIFT is Present. Performed By: #### L 501.5200, L500.2500, L100.0100, L501.4020 ####[facility] [address] [place], [address] Lymphocytes/100 WBC (Bld) 18.2 % Low 19-41 [facility] Comment on above: Performed By: #### L 501.5200, L500.2500, L100.0100, L501.4020 ####[facility] [address] [place], [address] MCH (RBC) [Entitic mass] 26.2 pg Low 27.0-32.0 [facility] Comment on above: Performed By: #### L 501.5200, L500.2500, L100.0100, L501.4020 ####[facility] [address] [place], [address] MCHC (RBC) [Mass/Vol] 31.6 g/dL Low 32-36 [facility] Comment on above: Performed By: #### L 501.5200, L500.2500, L100.0100, L501.4020 ####[facility] [address] [place], [address] MCV (RBC) [Entitic vol] 82.8 fL Normal 80-94 [facility] Comment on above: Performed By: #### L 501.5200, L500.2500, L100.0100, L501.4020 ####[facility] [address] [place], [address] Monocytes/100 WBC (Bld) 11.8 % High 0-10 [facility] Comment on above: Performed By: #### L 501.5200, L500.2500, L100.0100, L501.4020 ####[facility] [address] [place], [address] Neutrophils/100 WBC (Bld) 66.4 % Normal 47-70 [facility] Comment on above: Performed By: #### L 501.5200, L500.2500, L100.0100, L501.4020 ####[facility] [address] [place], [address] Nucleated RBC (Bld) [#/Vol] 0 10*3/uL Normal 0-5 [facility] Comment on above: Performed By: #### L 501.5200, L500.2500, L100.0100, L501.4020 ####[facility] [address] [place], [address] Platelet mean volume (Bld) [Entitic vol] 11.2 fL Normal 6.2-12.0 [facility] Comment on above: Performed By: #### L 501.5200, L500.2500, L100.0100, L501.4020 ####[facility] [address] [place], [address] Platelets (Bld) [#/Vol] 301 10*3/uL Normal 150-450 [facility] Comment on above: Performed By: #### L 501.5200, L500.2500, L100.0100, L501.4020 ####[facility] [address] [place], [address] RBC (Bld) [#/Vol] 5.00 10*6/uL Normal 4.6-6.2 [facility] Comment on above: Performed By: #### L 501.5200, L500.2500, L100.0100, L501.4020 ####[facility] [address] [place], [address] RDW SD 46.0 fl High 35.1-43.9 [facility] Comment on above: Performed By: #### L 501.5200, L500.2500, L100.0100, L501.4020 ####[facility] [address] [place], [address] WBC (Bld) [#/Vol] 11.3 10*3/uL High 4.4-11.0 [facility] Comment on above: Performed By: #### L 501.5200, L500.2500, L100.0100, L501.4020 ####[facility] [address] [place], [address] Carbon dioxide measurementOr dered By: Mani Esquivel on 09-01-2024 CO2 [Moles/Vol] 24.0 mmol/L 21.0-32.0 [facility] Chest PA and Lateralon 09-01 Chest PA and Lateral Normal [facility] Chloride measurementOrdered By: Mani Esquivel on 09-01-2024 Chloride [Moles/Vol] 106 mmol/L 98-107 [facility] Emergency Department Summary on 09-01-2024 Emergency Department Summary Normal [facility] Eosinophil percentageOrdered By: Mani Esquivel on 09-01-2024 Eosinophils/100 WBC (Bld) 2.9 % 0-5 [facility] Epithelial cells.squamous LM Ql (Urine sed)Ordered By: Mani Esquivel on 09-01-2024 Epithelial cells.squamous LM.HPF (Urine sed) [#/Area] 5 /[HPF] 0-5 [facility] Erythrocyte distribution wid th ratioOrdered By: Mani Esquivel on 09-01-2024 Erythrocyte distribution width (RBC) [Ratio] 15.3 % High 11.6-14.6 [facility] Erythrocyte distribution wid th standard deviationOrdered By: Mani Esquivel on 09-01-2024 Erythrocyte distribution width (RBC) [Entitic vol] 46.0 fL High 35.1-43.9 [facility] Estimated glomerular filtrat ion rate (GFR) AmericanOrdered By: Mani Esquivel on 09-01-2024 Estimated GFR (MDRD) Amer 79 mL/min >60 [facility] Comment on above: GFR Calc Estimation of creatinine ashley aranceOrdered By: Mani Esquivel on 09-01-2024 Estimated Creatinine Clearance Calc 73.93 ml/min [facility] Glomerular filtration rate ( GFR) estimationOrdered By: Mani Esquivel on 09-01-2024 Estimated GFR (MDRD) Non-Af Amer 66 mL/min >60 [facility] Comment on above: Non- GFR Calc Glucose Ql (U)Ordered By: Brigitte Esquivel on 09-01-2024 Glucose (U) [Mass/Vol] 1000 mg/dL High Normal [facility] Glucose measurementOrdered B y: Mani Esquivel on 09-01-2024 Glucose [Mass/Vol] 98 mg/dL 74-106 [facility] Hematocrit Auto (Bld) [Volum e fraction]Ordered By: Mani Esquivel on 09-01-2024 Hematocrit (Bld) [Volume fraction] 41.4 % 40-54 [facility] Hemoglobin measurementOrdere d By: Mani Esquivel on 09-01-2024 Hemoglobin (Bld) [Mass/Vol] 13.1 g/dL 13.0-16. 5 [facility] Immature granulocytes/100 WB C Auto (Bld)Ordered By: Mani Esquivel on 09-01-2024 Immature granulocytes/100 WBC (Bld) 0.300 % 0.0-0.9 [facility] Comment on above: IG% - Immature Granu locytes (promyelocytes, myelocytes and metamyelocytes) > 1% indicates that a LEFT SHIFT is Present. Ketones Test strip Ql (U)Ord ered By: Mani Esquivel on 09-01-2024 Ketones Ql (U) Negative Negative [facility] L501.4020on 09-01-2024 TROPONIN-I HS 11 pg/mL Normal 3.0-78.0 [facility] Comment on above: Order Comment: 'TROP ' Serial specimen #1, #2 or #3: 2 Result Comment: Plea se Note: New Test Units and Gender Specific Reference Ranges. For more information see Policy Stat Procedure [place] High Sensitivity Troponin (TNIH) and attachments. Performed By: #### L 501.4020 ####[facility] [address] [place], [address] TROPONIN-I HS 10 pg/mL Normal 3.0-78.0 [facility] Comment on above: Order Comment: 'TROP ' Serial specimen #1, #2 or #3: 1 Result Comment: Plea se Note: New Test Units and Gender Specific Reference Ranges. For more information see Policy Stat Procedure [place] High Sensitivity Troponin (TNIH) and attachments. Performed By: #### L 501.5200, L500.2500, L100.0100, L501.4020 ####[facility] [address] [place], [address] Lymphocytes Auto (Unsp spec) [#/Vol]Ordered By: Mani Esquivel on 09-01-2024 Lymphocytes (Bld) [#/Vol] 2.06 10*3/uL 0.83-4.5 1 [facility] Lymphocytes/100 WBC Auto (Un sp spec)Ordered By: Mani Esquivel on 09-01-2024 Lymphocytes/100 WBC (Bld) 18.2 % Low 19-41 [facility] MCV (mean corpuscular volume ) determinationOrdered By: Mani Esquivel on 09-01-2024 MCV (RBC) [Entitic vol] 82.8 fL 80-94 [facility] Magnesiumon 09-01-2024 Magnesium [Mass/Vol] 2.2 mg/dL Normal 1.6-2.6 [facility] Comment on above: Order Comment: 'TROP ' Serial specimen #1, #2 or #3: 1 Performed By: #### L 501.5200, L500.2500, L100.0100, L501.4020 ####[facility] [address] [place], [address] Magnesium measurementOrdered By: Mani Esquivel on 09-01-2024 Magnesium [Mass/Vol] 2.2 mg/dL 1.6-2.6 [facility] Mean corpuscular hemoglobin (MCH) determinationOrdered By: Mani Esquivel on 09-01-2024 MCH (RBC) [Entitic mass] 26.2 pg Low 27.0-32.0 [facility] Mean corpuscular hemoglobin concentration (MCHC) determinationOrdered By: Mani Esquivel on 09-01-2024 MCHC (RBC) [Mass/Vol] 31.6 g/dL Low 32-36 [facility] Mean platelet volume determi nationOrdered By: Mani Esquivel on 09-01-2024 Platelet mean volume (Bld) [Entitic vol] 11.2 fL 6.2-12.0 [facility] Microscopic analysis of urin e for red blood cells (RBC)Ordered By: Mani Esquivel on 09-01-2024 Urine RBC 10-25 SEEN /hpf 0-5 [facility] Monocyte percentageOrdered B y: Mani Esquivel on 09-01-2024 Monocytes/100 WBC (Bld) 11.8 % High 0-10 [facility] Mucus LM Ql (Urine sed)Order ed By: Mani Esquivel on 09-01-2024 Mucus Ql (Urine sed) 0 SEEN /hpf [facility] Neutrophil percentageOrdered By: Mani Esquivel on 09-01-2024 Neutrophils/100 WBC (Bld) 66.4 % 47-70 [facility] Nitrite Test strip Ql (U)Ord ered By: Mani Esquivel on 09-01-2024 Nitrite Ql (U) Negative Negative [facility] Nucleated red blood cell per centageOrdered By: Mani Esquivel on 09-01-2024 Nucleated RBC/100 WBC (Bld) [Ratio] 0 % 0-5 [facility] Platelet countOrdered By: Brigitte Esquivel on 09-01-2024 Platelets (Bld) [#/Vol] 301 10*3/uL 150-450 [facility] Potassium measurementOrdered By: Mani Esquivel on 09-01-2024 Potassium [Moles/Vol] 3.6 mmol/L 3.5-5.1 [facility] Protein Test strip Ql (U)Ord ered By: Mani Esquivel on 09-01-2024 Protein Ql (U) 30 mg/dl High Negative [facility] RBC Auto (Bld) [#/Vol]Ordere d By: Mani Esquivel on 09-01-2024 RBC (Bld) [#/Vol] 5.00 10*6/uL 4.6-6.2 [facility] Serum anion gap measurementO rdered By: Mani Esquivel on 09-01-2024 Anion gap [Moles/Vol] 7 mmol/L 5-15 [facility] Serum or plasma calcium nahomy urement (mass/volume)Ordered By: Mani Esquivel on 09-01-2024 Calcium [Mass/Vol] 9.3 mg/dL 8.5-10.1 [facility] Serum or plasma creatinine m easurement (mass/volume)Ordered By: Mani Esquivel on 09-01-2024 Creatinine [Mass/Vol] 1.14 mg/dL 0.70-1.30 [facility] Comment on above: The validity of the calculated GFR & GFRAA in patients over 70 years has not been determined. Clinical correlation is essential. Serum or plasma urea nitroge n measurement (mass/volume)Ordered By: Mani Esquivel on 09-01-2024 Urea nitrogen [Mass/Vol] 32 mg/dL High 7-18 [facility] Sodium levelOrdered By: Lit Esquivel on 09-01-2024 Sodium [Moles/Vol] 138 mmol/L 136-145 [facility] Troponin IOrdered By: Mani Esquivel on 09-01-2024 Troponin I High Sensitivity 11 pg/mL 3.0-78.0 [facility] Comment on above: Please Note: New [place] t Units and Gender Specific Reference Ranges. For more information see Policy Stat Procedure [place] High Sensitivity Troponin (TNIH) and attachments. Urinalysis, Completeon 09-01 BACTERIA 4+ /hpf Normal None Seen [facility] Comment on above: Order Comment: COLLE CTOR TO SPECIFY Performed By: #### L 400.0001 ####[facility] [address] [place], [address] EPI,SQUAMOUS 5-10 SEEN Normal 0-5 [facility] Comment on above: Order Comment: GO CTOR TO SPECIFY Performed By: #### L 400.0001 ####[facility] [address] [place], [address] RBC 10-25 SEEN Normal 0-5 [facility] Comment on above: Order Comment: GO CTOR TO SPECIFY Performed By: #### L 400.0001 ####[facility] [address] [place], [address] WBC 25-50 SEEN Normal 0-5 [facility] Comment on above: Order Comment: GO CTOR TO SPECIFY Performed By: #### L 400.0001 ####[facility] [address] [place], [address] Mucus Ql (Urine sed) 0 SEEN Normal [facility] Comment on above: Order Comment: GO CTOR TO SPECIFY Performed By: #### L 400.0001 ####[facility] [address] [place], [address] Urine blood detectionOrdered By: Mani Esquivel on 09-01-2024 Urine Occult Blood 150 /ul High Negative [facility] Urine clarityOrdered By: Rashel Esquivel on 09-01-2024 Clarity (U) Cloudy Clear [facility] Urine color determinationOrd ered By: Mani Esquivel on 09-01-2024 Color (U) Yellow Yellow [facility] Urine cultureOrdered By: Rashel Esquivel on 09-01-2024 Bacteria identified Cx Nom (U) Positive Abnormal [facility] Urine leukocyte esterase det ection by dipstickOrdered By: Mani Esquivel on 09-01-2024 Leukocyte esterase Test strip Ql (U) 500 /ul High Negative [facility] Urine pHOrdered By: Mani khanna on 09-01-2024 pH (U) 5.0 [pH] 5.0 - 8.0 [facility] Urine sediment bacteria coun t by microscopy (number/high power field)Ordered By: Mani Esquivel on 09-01-2024 Bacteria LM.HPF (Urine sed) [#/Area] 4 /[HPF] None Seen [facility] Urine specific gravity measu rementOrdered By: Mani Esquivel on 09-01-2024 Specific gravity (U) [Rel density] 1.025 1.002-1.030 [facility] Urobilinogen Ql (U)Ordered B y: Mani Esquivel on 09-01-2024 Urine Urobilinogen Normal mg/dl Normal [facility] White blood cell (WBC) count Ordered By: Mani Esquivel on 09-01-2024 WBC (Bld) [#/Vol] 11.3 10*3/uL High 4.4-11.0 [facility] White blood cell countOrdere d By: Mani Esquivel on 09-01-2024 Urine WBC 25-50 SEEN /hpf 0-5 [facility] [facility] FA[facility]AL [facility] ([id number]) 1945 M Date Time Provider Department 08/18/24 [facility] During your visit today, we recorded the following information about you: Kristina Higuera LPN 08/18/2024 12:58 PM Signed Kate with [facility] calls to check on status of order form that was faxed last week for DexLiquidHub G7. Kate is asking if office did not receive order form if office would call back and let them know. DENISE Haro Tara, LPN 08/18/2024 1:15 PM Signed We did and faxed it back. Will fax again today. Allergies As of Date: 08/18/2024 Noted Allergy Reaction AMOXICILLIN 05/11/2005 Comments: generalized erythema Date Reviewed: 07/29/2024 Reviewed by: Julianna Hodo APRN.CBX OPERATOR - Fully Assessed Reason for Visit: Orders [...] - Blood-Glucose Meter,Continuous (FREESTYLE MARIELLE 3 READER) [facility] Use to check blood sugar at least [...] mouth every 12 hours. Prescribed by outside supplier engineer - insulin glargine (BASAGLAR KWIKPEN U-100 INSULIN) [...] polyps [Z (more content not included)... [facility] [facility] FAISAL ALARCON ([id number]) 1945 Date Time Provider Department 08/15/24 MATHIEU VIRGEN [facility] During your visit today, we recorded the following information about you: Angelina Bliss RN 08/15/2024 9:05 AM Signed Summer calling with [employer], the company assisting patient with Dexcom G7 CGM. Requesting recent OV note to further proceed with pt's CGM order. Faxed as requested to [phone]. Angelina Bliss RN Allergies As of Date: 08/15/2024 Noted Allergy Reaction AMOXICILLIN 05/11/2005 Comments: generalized erythema Date Reviewed: 07/29/2024 Reviewed by: Julianna Hood APRN.CBX OPERATOR - Fully Assessed Reason for Visit: CGM [...] - Blood-Glucose Meter,Continuous (FREESTYLE MARIELLE 3 READER) [facility] Use to check blood sugar at least [...] a day before meals. [facility] dilTIAZem CD (CARDIZEM CD, CARTIA XT) [...] mouth every 12 hours. Prescribed by outside supplier engineer - insulin glargine (BASAGLAR KWIKPEN U-100 INSULIN) [...] Left low (more content not included)... Normal [facility] Cardiology Visit Reporton Cardiology Visit Report Normal [facility] Absolute neutrophil countOrd ered By: Sergey Carreon on 08-11-2024 Neutrophils (Bld) [#/Vol] 8.0 10*3/uL High 2.0-7.7 [facility] Albumin to globulin ratioOrd ered By: Sergey Carreon on 08-11-2024 Albumin/Globulin [Mass ratio] 0.9 {ratio} 0.9-2.4 [facility] Basophil percentageOrdered B y: Sergey Carreon on 08-11-2024 Basophils/100 WBC (Bld) 0.4 % 0-1 [facility] Bilirubin, totalOrdered By: Sergey Carreon on 08-11-2024 Bilirubin [Mass/Vol] 0.30 mg/dL 0.20-1.00 [facility] Comment on above: For patients on eltr ombopag therapy, use of Dimension [place] TBIL is not recommended. Blood urea nitrogen (BUN)/cr eatinine ratioOrdered By: Sergey Carreon on 08-11-2024 Urea nitrogen/Creatinine [Mass ratio] 25.5 mg/mg High 10-20 [facility] CBC W/Diff, Automatedon 07-19 Absolute Lymph 1.24 X10 3/uL Normal 0.83-4.51 [facility] Comment on above: Performed By: #### L 501.5200, L501.9520, L100.0100, L500.4050 ####[facility] [address] [place], [address] Absolute Neut 8.0 X10 3/uL High 2.0-7.7 [facility] Comment on above: Performed By: #### L 501.5200, L501.9520, L100.0100, L500.4050 ####[facility] [address] [place], [address] Basophils/100 WBC (Bld) 0.4 % Normal 0-1 [facility] Comment on above: Performed By: #### L 501.5200, L501.9520, L100.0100, L500.4050 ####[facility] [address] [place], [address] Eosinophils/100 WBC (Bld) 2.3 % Normal 0-5 [facility] Comment on above: Performed By: #### L 501.5200, L501.9520, L100.0100, L500.4050 ####[facility] [address] [place], [address] Erythrocyte distribution width (RBC) [Ratio] 14.5 % Normal 11.6-14.6 [facility] Comment on above: Performed By: #### L 501.5200, L501.9520, L100.0100, L500.4050 ####[facility] [address] [place], [address] Hematocrit (Bld) [Volume fraction] 42.3 % Normal 40-54 [facility] Comment on above: Performed By: #### L 501.5200, L501.9520, L100.0100, L500.4050 ####[facility] [address] [place], [address] Hemoglobin (Bld) [Mass/Vol] 13.4 g/dL Normal 13.0-16. 5 [facility] Comment on above: Performed By: #### L 501.5200, L501.9520, L100.0100, L500.4050 ####[facility] [address] [place], [address] IG% 0.500 Normal 0.0-0.9 [facility] Comment on above: Result Comment: IG% - Immature Granulocytes (promyelocytes, myelocytes andmetamyelocytes) > 1% indicates that a LEFT SHIFT is Present. Performed By: #### L 501.5200, L501.9520, L100.0100, L500.4050 ####[facility] [address] [place], [address] Lymphocytes/100 WBC (Bld) 11.8 % Low 19-41 [facility] Comment on above: Performed By: #### L 501.5200, L501.9520, L100.0100, L500.4050 ####[facility] [address] [place], [address] MCH (RBC) [Entitic mass] 26.4 pg Low 27.0-32.0 [facility] Comment on above: Performed By: #### L 501.5200, L501.9520, L100.0100, L500.4050 ####[facility] [address] [place], [address] MCHC (RBC) [Mass/Vol] 31.7 g/dL Low 32-36 [facility] Comment on above: Performed By: #### L 501.5200, L501.9520, L100.0100, L500.4050 ####[facility] [address] [place], [address] MCV (RBC) [Entitic vol] 83.3 fL Normal 80-94 [facility] Comment on above: Performed By: #### L 501.5200, L501.9520, L100.0100, L500.4050 ####[facility] [address] [place], [address] Monocytes/100 WBC (Bld) 9.3 % Normal 0-10 [facility] Comment on above: Performed By: #### L 501.5200, L501.9520, L100.0100, L500.4050 ####[facility] [address] [place], [address] Neutrophils/100 WBC (Bld) 75.7 % High 47-70 [facility] Comment on above: Performed By: #### L 501.5200, L501.9520, L100.0100, L500.4050 ####[facility] [address] [place], [address] Nucleated RBC (Bld) [#/Vol] 0 10*3/uL Normal 0-5 [facility] Comment on above: Performed By: #### L 501.5200, L501.9520, L100.0100, L500.4050 ####[facility] [address] [place], [address] Platelet mean volume (Bld) [Entitic vol] 11.4 fL Normal 6.2-12.0 [facility] Comment on above: Performed By: #### L 501.5200, L501.9520, L100.0100, L500.4050 ####[facility] [address] [place], [address] Platelets (Bld) [#/Vol] 241 10*3/uL Normal 150-450 [facility] Comment on above: Performed By: #### L 501.5200, L501.9520, L100.0100, L500.4050 ####[facility] [address] [place], [address] RBC (Bld) [#/Vol] 5.08 10*6/uL Normal 4.6-6.2 [facility] Comment on above: Performed By: #### L 501.5200, L501.9520, L100.0100, L500.4050 ####[facility] [address] [place], [address] RDW SD 43.5 fl Normal 35.1-43.9 [facility] Comment on above: Performed By: #### L 501.5200, L501.9520, L100.0100, L500.4050 ####[facility] [address] [place], [address] WBC (Bld) [#/Vol] 10.6 10*3/uL Normal 4.4-11.0 [facility] Comment on above: Performed By: #### L 501.5200, L501.9520, L100.0100, L500.4050 ####[facility] [address] [place], [address] [facility] Telephone ([facility]) FAISAL ALARCON ([id number]) 1945 M Date Time Provider Department 08/11/24 MATHIEU VIRGEN [facility] During your visit today, we [...] Date Reviewed: 07/29/2024 Reviewed by: Julianna Hood APRN.CBX OPERATOR - Fully Assessed Reason for Visit: Patient [...] - Blood-Glucose Meter,Continuous (FREESTYLE MARIELLE 3 READER) [facility] Use to check blood sugar at least [...] mouth every 12 hours. Prescribed by outside supplier engineer - insulin glargine (BASAGLAR KWIKPEN U-100 INSULIN) [...] atrial fibrillatio (more content not included)... Normal [facility] Carbon dioxide measurementOr dered By: Sergey Carreon on 08-11-2024 CO2 [Moles/Vol] 25.0 mmol/L 21.0-32.0 [facility] Chloride measurementOrdered By: Sergey Carreon on 08-11-2024 Chloride [Moles/Vol] 104 mmol/L 98-107 [facility] Comprehensive Metabolic Prof ilon 08-11-2024 Albumin [Mass/Vol] 3.6 g/dL Normal 3.2-5.0 [facility] Comment on above: Performed By: #### L 501.5200, L501.9520, L100.0100, L500.4050 ####[facility] [address] [place], [place], [id number] Albumin/Globulin [Mass ratio] 0.9 {ratio} Normal 0.9-2.4 [facility] Comment on above: Performed By: #### L 501.5200, L501.9520, L100.0100, L500.4050 ####[facility] [address] [place], [address] ALK P 91 U/L Normal 45-117 [facility] Comment on above: Performed By: #### L 501.5200, L501.9520, L100.0100, L500.4050 ####[facility] [address] [place], [address] ALT [Catalytic activity/Vol] 19 U/L Normal 16-61 [facility] Comment on above: Performed By: #### L 501.5200, L501.9520, L100.0100, L500.4050 ####[facility] [address] [place], [address] AST [Catalytic activity/Vol] 14 U/L Low 15-37 [facility] Comment on above: Performed By: #### L 501.5200, L501.9520, L100.0100, L500.4050 ####[facility] [address] [place], [address] Bilirubin [Mass/Vol] 0.30 mg/dL Normal 0.20-1.00 [facility] Comment on above: Result Comment: For patients on eltrombopag therapy, use of Dimension [place] TBIL is not recommended. Performed By: #### L 501.5200, L501.9520, L100.0100, L500.4050 ####[facility] [address] [place], [address] BUN/CRE 25.5 RATIO High 10-20 [facility] Comment on above: Performed By: #### L 501.5200, L501.9520, L100.0100, L500.4050 ####[facility] [address] [place], [address] CA,Total 9.6 mg/dL Normal 8.5-10.1 [facility] Comment on above: Performed By: #### L 501.5200, L501.9520, L100.0100, L500.4050 ####[facility] [address] [place], [address] Chloride [Moles/Vol] 104 mmol/L Normal 98-107 [facility] Comment on above: Performed By: #### L 501.5200, L501.9520, L100.0100, L500.4050 ####[facility] [address] [place], [address] CO2 [Moles/Vol] 25.0 mmol/L Normal 21.0-32.0 [facility] Comment on above: Performed By: #### L 501.5200, L501.9520, L100.0100, L500.4050 ####[facility] [address] [place], [address] Creatinine [Mass/Vol] 1.37 mg/dL High 0.70-1.30 [facility] Comment on above: Result Comment: The validity of the calculated GFR GFRAA in patients over70 years has not been determined. Clinical correlation isessential. Performed By: #### L 501.5200, L501.9520, L100.0100, L500.4050 ####[facility] [address] [place], [address] EST GFR - AA 64 mL/min Normal >60 [facility] Comment on above: Result Comment: Afri can Tanzanian GFR Calc Performed By: #### L 501.5200, L501.9520, L100.0100, L500.4050 ####[facility] [address] [place], [address] GAP 8 Normal 5-15 [facility] Comment on above: Performed By: #### L 501.5200, L501.9520, L100.0100, L500.4050 ####[facility] [address] [place], [address] GFR/1.73 sq M.predicted among non-blacks MDRD (S/P/Bld) [Vol rate/Area] 53 mL/min/{1.73_m2} Low >60 [facility] Comment on above: Result Comment: Non- GFR Calc Performed By: #### L 501.5200, L501.9520, L100.0100, L500.4050 ####[facility] [address] [place], [address] Globulin (S) [Mass/Vol] 3.9 g/dL Normal 2.2-4.2 [facility] Comment on above: Performed By: #### L 501.5200, L501.9520, L100.0100, L500.4050 ####[facility] [address] [place], [address] Glucose [Mass/Vol] 168 mg/dL High 74-106 [facility] Comment on above: Result Comment: Fast ing Glucose result greater than or equal to 126 mg/dLsuggests DIABETES MELLITUS per A.D.A. criteria. Performed By: #### L 501.5200, L501.9520, L100.0100, L500.4050 ####[facility] [address] [place], [address] Potassium [Moles/Vol] 4.2 mmol/L Normal 3.5-5.1 [facility] Comment on above: Performed By: #### L 501.5200, L501.9520, L100.0100, L500.4050 ####[facility] [address] [place], [address] Sodium [Moles/Vol] 136 mmol/L Normal 136-145 [facility] Comment on above: Performed By: #### L 501.5200, L501.9520, L100.0100, L500.4050 ####[facility] [address] [place], [address] T PROT 7.5 g/dL Normal 6.4-8.2 [facility] Comment on above: Performed By: #### L 501.5200, L501.9520, L100.0100, L500.4050 ####[facility] [address] [place], [address] Urea nitrogen [Mass/Vol] 35 mg/dL High 7-18 [facility] Comment on above: Performed By: #### L 501.5200, L501.9520, L100.0100, L500.4050 ####[facility] [address] [place], [address] Eosinophil percentageOrdered By: Sergey Carreon on 08-11-2024 Eosinophils/100 WBC (Bld) 2.3 % 0-5 [facility] Erythrocyte distribution wid th ratioOrdered By: Sergey Carreon on 08-11-2024 Erythrocyte distribution width (RBC) [Ratio] 14.5 % 11.6-14.6 [facility] Erythrocyte distribution wid th standard deviationOrdered By: Sergey Carreon on 08-11-2024 Erythrocyte distribution width (RBC) [Entitic vol] 43.5 fL 35.1-43.9 [facility] Estimated glomerular filtrat ion rate (GFR) AmericanOrdered By: Sergey Carreon on 08-11-2024 Estimated GFR (MDRD) Amer 64 mL/min >60 [facility] Comment on above: GFR Calc Glomerular filtration rate ( GFR) estimationOrdered By: Sergey Carreon on 08-11-2024 Estimated GFR (MDRD) Non-Af Amer 53 mL/min Low >60 [facility] Comment on above: Non- GFR Calc Glucose measurementOrdered B y: Sergey Carreon on 08-11-2024 Glucose [Mass/Vol] 168 mg/dL High 74-106 [facility] Comment on above: Fasting Glucose resu lt greater than or equal to 126 mg/dL suggests DIABETES MELLITUS per A.D.A. criteria. Hematocrit Auto (Bld) [Volum e fraction]Ordered By: Sergey Carreon on 08-11-2024 Hematocrit (Bld) [Volume fraction] 42.3 % 40-54 [facility] Hemoglobin measurementOrdere d By: Sergey Carreon on 08-11-2024 Hemoglobin (Bld) [Mass/Vol] 13.4 g/dL 13.0-16. 5 [facility] Immature granulocytes/100 WB C Auto (Bld)Ordered By: Sergey Carreon on 08-11-2024 Immature granulocytes/100 WBC (Bld) 0.500 % 0.0-0.9 [facility] Comment on above: IG% - Immature Granu locytes (promyelocytes, myelocytes and metamyelocytes) > 1% indicates that a LEFT SHIFT is Present. Laboratory - Chemistry and C hemistry - challengeOrdered By: Sergey Carreon on 08-11-2024 AST [Catalytic activity/Vol] 14 U/L Low 15-37 [facility] Lymphocytes Auto (Unsp spec) [#/Vol]Ordered By: Sergey Carreon on 08-11-2024 Lymphocytes (Bld) [#/Vol] 1.24 10*3/uL 0.83-4.5 1 [facility] Lymphocytes/100 WBC Auto (Un sp spec)Ordered By: Sergey Carreon on 08-11-2024 Lymphocytes/100 WBC (Bld) 11.8 % Low 19-41 [facility] MCV (mean corpuscular volume ) determinationOrdered By: Sergey Carreon on 08-11-2024 MCV (RBC) [Entitic vol] 83.3 fL 80-94 [facility] Magnesiumon 08-11-2024 Magnesium [Mass/Vol] 2.2 mg/dL Normal 1.6-2.6 [facility] Comment on above: Performed By: #### L 501.5200, L501.9520, L100.0100, L500.4050 ####[facility] [address] [place], [place], [id number] Magnesium measurementOrdered By: Sergey Carreon on 08-11-2024 Magnesium [Mass/Vol] 2.2 mg/dL 1.6-2.6 [facility] Mean corpuscular hemoglobin (MCH) determinationOrdered By: Sergey Carreon on 08-11-2024 MCH (RBC) [Entitic mass] 26.4 pg Low 27.0-32.0 [facility] Mean corpuscular hemoglobin concentration (MCHC) determinationOrdered By: Sergey Carreon on 08-11-2024 MCHC (RBC) [Mass/Vol] 31.7 g/dL Low 32-36 [facility] Mean platelet volume determi nationOrdered By: Sergey Carreon on 08-11-2024 Platelet mean volume (Bld) [Entitic vol] 11.4 fL 6.2-12.0 [facility] Monocyte percentageOrdered B y: Sergey Carreon on 08-11-2024 Monocytes/100 WBC (Bld) 9.3 % 0-10 [facility] Neutrophil percentageOrdered By: Sergey Carreon on 08-11-2024 Neutrophils/100 WBC (Bld) 75.7 % High 47-70 [facility] Nucleated red blood cell per centageOrdered By: Sergey Carreon on 08-11-2024 Nucleated RBC/100 WBC (Bld) [Ratio] 0 % 0-5 [facility] Platelet countOrdered By: Marcelina Carreon on 08-11-2024 Platelets (Bld) [#/Vol] 241 10*3/uL 150-450 [facility] Potassium measurementOrdered By: Sergey Carreon on 08-11-2024 Potassium [Moles/Vol] 4.2 mmol/L 3.5-5.1 [facility] RBC Auto (Bld) [#/Vol]Ordere d By: Sergey Carreon on 08-11-2024 RBC (Bld) [#/Vol] 5.08 10*6/uL 4.6-6.2 [facility] Serum anion gap measurementO rdered By: Sergey Carreon on 08-11-2024 Anion gap [Moles/Vol] 8 mmol/L 5-15 [facility] Serum globulin measurementOr dered By: Sergey Carreon on 08-11-2024 Globulin (S) [Mass/Vol] 3.9 g/dL 2.2-4.2 [facility] Serum or plasma alanine cottrell otransferase (ALT) measurementOrdered By: Sergey Carreon on 08-11-2024 ALT [Catalytic activity/Vol] 19 U/L 16-61 [facility] Serum or plasma albumin nahomy urement (mass/volume)Ordered By: Sergey Carreon on 08-11-2024 Albumin [Mass/Vol] 3.6 g/dL 3.2-5.0 [facility] Serum or plasma alkaline ahsan sphatase measurementOrdered By: Sergey Carreon on 08-11-2024 ALP [Catalytic activity/Vol] 91 U/L 45-117 [facility] Serum or plasma calcium nahomy urement (mass/volume)Ordered By: Sergey Carreon on 08-11-2024 Calcium [Mass/Vol] 9.6 mg/dL 8.5-10.1 [facility] Serum or plasma creatinine m easurement (mass/volume)Ordered By: Sergey Carreon on 08-11-2024 Creatinine [Mass/Vol] 1.37 mg/dL High 0.70-1.30 [facility] Comment on above: The validity of the calculated GFR & GFRAA in patients over 70 years has not been determined. Clinical correlation is essential. Serum or plasma urea nitroge n measurement (mass/volume)Ordered By: Sergey Carreon on 08-11-2024 Urea nitrogen [Mass/Vol] 35 mg/dL High 7-18 [facility] Sodium levelOrdered By: Sergey Carreon on 08-11-2024 Sodium [Moles/Vol] 136 mmol/L 136-145 [facility] TSH QnOrdered By: Sergey Carreon on 08-11-2024 Thyroid Stimulating Hormone (TSH) 1.250 uIU/mL 0.358-3.740 [facility] Thyroid Stim Hormone (TSH)on 08-11-2024 TSH 1.250 uIU/mL Normal 0.358-3.740 [facility] Comment on above: Performed By: #### L 501.5200, L501.9520, L100.0100, L500.4050 ####[facility] [address] [facility] [place], [place], [id number] Total proteinOrdered By: Morgan Carreon on 08-11-2024 Protein [Mass/Vol] 7.5 g/dL 6.4-8.2 [facility] White blood cell (WBC) count Ordered By: Sergey Carreon on 08-11-2024 WBC (Bld) [#/Vol] 10.6 10*3/uL 4.4-11.0 [facility] Basic Metabolic Profile (BMP )on 07-31-2024 BUN/CRE 17.5 RATIO Normal 10-20 [facility] Comment on above: Performed By: #### L 501.5200, L500.2500, L100.0100 ####[facility] [address] [place], [address] CA,Total 9.0 mg/dL Normal 8.5-10.1 [facility] Comment on above: Performed By: #### L 501.5200, L500.2500, L100.0100 ####[facility] [address] [place], [address] Chloride [Moles/Vol] 107 mmol/L Normal 98-107 [facility] Comment on above: Performed By: #### L 501.5200, L500.2500, L100.0100 ####[facility] [address] [place], [address] CO2 [Moles/Vol] 27.0 mmol/L Normal 21.0-32.0 [facility] Comment on above: Performed By: #### L 501.5200, L500.2500, L100.0100 ####[facility] [address] [place], [address] Creatinine [Mass/Vol] 1.26 mg/dL Normal 0.70-1.30 [facility] Comment on above: Result Comment: The validity of the calculated GFR GFRAA in patients over70 years has not been determined. Clinical correlation isessential. Performed By: #### L 501.5200, L500.2500, L100.0100 ####[facility] [address] [place], [address] EST GFR - AA 71 mL/min Normal >60 [facility] Comment on above: Result Comment: Afri can Tanzanian GFR Calc Performed By: #### L 501.5200, L500.2500, L100.0100 ####[facility] [address] [place], [address] GAP 7 Normal 5-15 [facility] Comment on above: Performed By: #### L 501.5200, L500.2500, L100.0100 ####[facility] [address] [place], [address] GFR/1.73 sq M.predicted among non-blacks MDRD (S/P/Bld) [Vol rate/Area] 59 mL/min/{1.73_m2} Low >60 [facility] Comment on above: Result Comment: Non- GFR Calc Performed By: #### L 501.5200, L500.2500, L100.0100 ####[facility] [address] [place], [address] Glucose [Mass/Vol] 119 mg/dL High 74-106 [facility] Comment on above: Result Comment: Fast ing Glucose result from 100 to 125 mg/dLsuggests IMPAIRED HOMEOSTASIS per A.D.A. criteria. Performed By: #### L 501.5200, L500.2500, L100.0100 ####[facility] [address] [place], [address] Potassium [Moles/Vol] 3.6 mmol/L Normal 3.5-5.1 [facility] Comment on above: Performed By: #### L 501.5200, L500.2500, L100.0100 ####[facility] [address] [place], [address] Sodium [Moles/Vol] 141 mmol/L Normal 136-145 [facility] Comment on above: Performed By: #### L 501.5200, L500.2500, L100.0100 ####[facility] [address] [place], [address] Urea nitrogen [Mass/Vol] 22 mg/dL High 7-18 [facility] Comment on above: Performed By: #### L 501.5200, L500.2500, L100.0100 ####[facility] [address] [place], [address] CBC W/Diff, Automatedon 11-09 20-2023 Absolute Lymph 1.13 X10 3/uL Normal 0.83-4.51 [facility] Comment on above: Performed By: #### L 501.5200, L500.2500, L100.0100 ####[facility] [address] [place], [address] Absolute Neut 6.1 X10 3/uL Normal 2.0-7.7 [facility] Comment on above: Performed By: #### L 501.5200, L500.2500, L100.0100 ####[facility] [address] [place], [address] Basophils/100 WBC (Bld) 0.4 % Normal 0-1 [facility] Comment on above: Performed By: #### L 501.5200, L500.2500, L100.0100 ####[facility] [address] [place], [address] Eosinophils/100 WBC (Bld) 2.6 % Normal 0-5 [facility] Comment on above: Performed By: #### L 501.5200, L500.2500, L100.0100 ####[facility] [address] [place], [address] Erythrocyte distribution width (RBC) [Ratio] 14.1 % Normal 11.6-14.6 [facility] Comment on above: Performed By: #### L 501.5200, L500.2500, L100.0100 ####[facility] [address] [place], [address] Hematocrit (Bld) [Volume fraction] 38.0 % Low 40-54 [facility] Comment on above: Performed By: #### L 501.5200, L500.2500, L100.0100 ####[facility] [address] [place], [address] Hemoglobin (Bld) [Mass/Vol] 11.8 g/dL Low 13.0-16. 5 [facility] Comment on above: Performed By: #### L 501.5200, L500.2500, L100.0100 ####[facility] [address] [place], [address] IG% 0.200 Normal 0.0-0.9 [facility] Comment on above: Result Comment: IG% - Immature Granulocytes (promyelocytes, myelocytes andmetamyelocytes) > 1% indicates that a LEFT SHIFT is Present. Performed By: #### L 501.5200, L500.2500, L100.0100 ####[facility] [address] [place], [address] Lymphocytes/100 WBC (Bld) 13.3 % Low 19-41 [facility] Comment on above: Performed By: #### L 501.5200, L500.2500, L100.0100 ####[facility] [address] [place], [address] MCH (RBC) [Entitic mass] 26.3 pg Low 27.0-32.0 [facility] Comment on above: Performed By: #### L 501.5200, L500.2500, L100.0100 ####[facility] [address] [place], [address] MCHC (RBC) [Mass/Vol] 31.1 g/dL Low 32-36 [facility] Comment on above: Performed By: #### L 501.5200, L500.2500, L100.0100 ####[facility] [address] [place], [address] MCV (RBC) [Entitic vol] 84.8 fL Normal 80-94 [facility] Comment on above: Performed By: #### L 501.5200, L500.2500, L100.0100 ####[facility] [address] [place], [address] Monocytes/100 WBC (Bld) 11.5 % High 0-10 [facility] Comment on above: Performed By: #### L 501.5200, L500.2500, L100.0100 ####[facility] [address] [place], [address] Neutrophils/100 WBC (Bld) 72.0 % High 47-70 [facility] Comment on above: Performed By: #### L 501.5200, L500.2500, L100.0100 ####[facility] [address] [place], [address] Nucleated RBC (Bld) [#/Vol] 0 10*3/uL Normal 0-5 [facility] Comment on above: Performed By: #### L 501.5200, L500.2500, L100.0100 ####[facility] [address] [place], [address] Platelet mean volume (Bld) [Entitic vol] 11.4 fL Normal 6.2-12.0 [facility] Comment on above: Performed By: #### L 501.5200, L500.2500, L100.0100 ####[facility] [address] [place], [address] Platelets (Bld) [#/Vol] 282 10*3/uL Normal 150-450 [facility] Comment on above: Performed By: #### L 501.5200, L500.2500, L100.0100 ####[facility] [address] [place], [address] RBC (Bld) [#/Vol] 4.48 10*6/uL Low 4.6-6.2 [facility] Comment on above: Performed By: #### L 501.5200, L500.2500, L100.0100 ####[facility] [address] [place], [address] RDW SD 43.7 fl Normal 35.1-43.9 [facility] Comment on above: Performed By: #### L 501.5200, L500.2500, L100.0100 ####[facility] [address] [place], [address] WBC (Bld) [#/Vol] 8.5 10*3/uL Normal 4.4-11.0 [facility] Comment on above: Performed By: #### L 501.5200, L500.2500, L100.0100 ####[facility] [address] [place], [address] [facility] 07-31-2024 [facility] Telephone ([facility]) FAISAL ALARCON ([id number]) 1945 M Date Time Provider Department 07/31/24 JULIANNA HOOD [facility] During your visit today, we recorded the following information about you: Julianna Hood APRN.CBX OPERATOR 07/31/2024 5:32 PM Signed Lab work done [...] Date Reviewed: 07/29/2024 Reviewed by: Julianna Hood APRN.CBX OPERATOR - Fully Assessed Prescriptions as of 08/01/2024 [...] - Blood-Glucose Meter,Continuous (FREESTYLE MARIELLE 3 READER) [facility] Use to check blood sugar at least [...] mouth every 12 hours. Prescribed by outside supplier engineer - insulin glargine (BASAGLAR KWIKPEN U-100 INSULIN) [...] [I48.0] 02/15/2021 (more content not included)... Normal [facility] Magnesiumon 07-31-2024 Magnesium [Mass/Vol] 2.9 mg/dL High 1.6-2.6 [facility] Comment on above: Performed By: #### L 501.5200, L500.2500, L100.0100 ####[facility] [address] [place], [address] Pulmonary Visit Reporton Pulmonary Visit Report Normal [facility] CNOVon 07-29-2024 CNOV Office Visit ([facility]AMPWS ) FAISAL ALARCON ([id number]) 1945 M Date Time Provider Department 07/29/24 11:20 AM JULIANNA HOOD [facility] During your visit today, we recorded the following information about you: Pulse Respiration Blood pressure Weight 70/minute 24/minute 104/50 135.2 kg Julianna Hood APRN.CBX OPERATOR 07/31/2024 12:43 PM Addendum This is a [...] pressure. No nausea. No constipation. Admitted to [facility] w/ pulmonary edeam, hypoxia Echo showed EF [...] day. Blood-Glucose Meter,Continuous (FREESTYLE MARIELLE 3 READER) [facility] Use to check blood sugar at least four (4) times daily. Uses insulin Blood-Glucose Sensor (FREESTYLE MARIELLE 3 PLUS SENSOR) syara Apply new sensor every fifteen (15) days [...] CD (CARDI (more content not included)... Normal [facility] CBC W/Diff, Automatedon 07-18 Absolute Lymph 1.39 X10 3/uL Normal 0.83-4.51 [facility] Comment on above: Performed By: #### L 506.0250, L503.6550, L503.0105, L100.0100, L503.6030 ####[facility] [address] [place], [address] Absolute Neut 7.2 X10 3/uL Normal 2.0-7.7 [facility] Comment on above: Performed By: #### L 506.0250, L503.6550, L503.0105, L100.0100, L503.6030 ####[facility] [address] [place], [address] Basophils/100 WBC (Bld) 0.4 % Normal 0-1 [facility] Comment on above: Performed By: #### L 506.0250, L503.6550, L503.0105, L100.0100, L503.6030 ####[facility] [address] [place], [address] Eosinophils/100 WBC (Bld) 3.0 % Normal 0-5 [facility] Comment on above: Performed By: #### L 506.0250, L503.6550, L503.0105, L100.0100, L503.6030 ####[facility] [address] [place], [address] Erythrocyte distribution width (RBC) [Ratio] 14.1 % Normal 11.6-14.6 [facility] Comment on above: Performed By: #### L 506.0250, L503.6550, L503.0105, L100.0100, L503.6030 ####[facility] [address] [place], [address] Hematocrit (Bld) [Volume fraction] 38.9 % Low 40-54 [facility] Comment on above: Performed By: #### L 506.0250, L503.6550, L503.0105, L100.0100, L503.6030 ####[facility] [address] [place], [address] Hemoglobin (Bld) [Mass/Vol] 12.1 g/dL Low 13.0-16. 5 [facility] Comment on above: Performed By: #### L 506.0250, L503.6550, L503.0105, L100.0100, L503.6030 ####[facility] [address] [place], [address] IG% 0.400 Normal 0.0-0.9 [facility] Comment on above: Result Comment: IG% - Immature Granulocytes (promyelocytes, myelocytes andmetamyelocytes) > 1% indicates that a LEFT SHIFT is Present. Performed By: #### L 506.0250, L503.6550, L503.0105, L100.0100, L503.6030 ####[facility] [address] [place], [address] Lymphocytes/100 WBC (Bld) 13.8 % Low 19-41 [facility] Comment on above: Performed By: #### L 506.0250, L503.6550, L503.0105, L100.0100, L503.6030 ####[facility] [address] [place], [address] MCH (RBC) [Entitic mass] 26.1 pg Low 27.0-32.0 [facility] Comment on above: Performed By: #### L 506.0250, L503.6550, L503.0105, L100.0100, L503.6030 ####[facility] [address] [place], [address] MCHC (RBC) [Mass/Vol] 31.1 g/dL Low 32-36 [facility] Comment on above: Performed By: #### L 506.0250, L503.6550, L503.0105, L100.0100, L503.6030 ####[facility] [address] [place], [address] MCV (RBC) [Entitic vol] 84.0 fL Normal 80-94 [facility] Comment on above: Performed By: #### L 506.0250, L503.6550, L503.0105, L100.0100, L503.6030 ####[facility] [address] [place], [address] Monocytes/100 WBC (Bld) 10.6 % High 0-10 [facility] Comment on above: Performed By: #### L 506.0250, L503.6550, L503.0105, L100.0100, L503.6030 ####[facility] [address] [place], [address] Neutrophils/100 WBC (Bld) 71.8 % High 47-70 [facility] Comment on above: Performed By: #### L 506.0250, L503.6550, L503.0105, L100.0100, L503.6030 ####[facility] [address] [place], [address] Nucleated RBC (Bld) [#/Vol] 0 10*3/uL Normal 0-5 [facility] Comment on above: Performed By: #### L 506.0250, L503.6550, L503.0105, L100.0100, L503.6030 ####[facility] [address] [place], [address] Platelet mean volume (Bld) [Entitic vol] 10.6 fL Normal 6.2-12.0 [facility] Comment on above: Performed By: #### L 506.0250, L503.6550, L503.0105, L100.0100, L503.6030 ####[facility] [address] [place], [address] Platelets (Bld) [#/Vol] 321 10*3/uL Normal 150-450 [facility] Comment on above: Performed By: #### L 506.0250, L503.6550, L503.0105, L100.0100, L503.6030 ####[facility] [address] [place], [address] RBC (Bld) [#/Vol] 4.63 10*6/uL Normal 4.6-6.2 [facility] Comment on above: Performed By: #### L 506.0250, L503.6550, L503.0105, L100.0100, L503.6030 ####[facility] [address] [place], [address] RDW SD 42.7 fl Normal 35.1-43.9 [facility] Comment on above: Performed By: #### L 506.0250, L503.6550, L503.0105, L100.0100, L503.6030 ####[facility] [address] [place], [address] WBC (Bld) [#/Vol] 10.0 10*3/uL Normal 4.4-11.0 [facility] Comment on above: Performed By: #### L 506.0250, L503.6550, L503.0105, L100.0100, L503.6030 ####[facility] [address] [place], [address] Ferritinon 07-28-2024 Ferritin [Mass/Vol] 27 ng/mL Normal 26-388 [facility] Comment on above: Order Comment: N Performed By: #### L 506.0250, L503.6550, L503.0105, L100.0100, L503.6030 ####[facility] [address] [place], [address] Folates, (Folic Acid)on 07-18 FOLATES 14.80 ng/mL Normal 3.1-55.4 [facility] Comment on above: Order Comment: N Performed By: #### L 506.0250, L503.6550, L503.0105, L100.0100, L503.6030 ####[facility] [address] [place], [address] Iron+Iron Binding Capacityon 07-28-2024 Iron [Mass/Vol] 50 ug/dL Low 65-175 [facility] Comment on above: Order Comment: N Performed By: #### L 506.0250, L503.6550, L503.0105, L100.0100, L503.6030 ####[facility] [address] [place], [address] IRON SATURATION 12.6 Low 15.0-55.0 [facility] Comment on above: Order Comment: N Performed By: #### L 506.0250, L503.6550, L503.0105, L100.0100, L503.6030 ####[facility] [address] [place], [address] TIBC 397 ug/dL Normal 250-450 [facility] Comment on above: Order Comment: N Performed By: #### L 506.0250, L503.6550, L503.0105, L100.0100, L503.6030 ####[facility] [address] [place], [address] Vitamin B12on 07-28-2024 Cobalamin (Vitamin B12) [Mass/Vol] 310 pg/mL Normal 211-911 [facility] Comment on above: Performed By: #### L 506.0250, L503.6550, L503.0105, L100.0100, L503.6030 ####[facility] [address] [place], [address] Basic Metabolic Profile (BMP )on 07-25-2024 BUN/CRE 34.6 RATIO High 10-20 [facility] Comment on above: Performed By: #### L 100.0100, L500.2500 ####[facility] [address] [place], [address] CA,Total 8.9 mg/dL Normal 8.5-10.1 [facility] Comment on above: Performed By: #### L 100.0100, L500.2500 ####[facility] [address] [place], [address] Chloride [Moles/Vol] 101 mmol/L Normal 98-107 [facility] Comment on above: Performed By: #### L 100.0100, L500.2500 ####[facility] [address] [place], [address] CO2 [Moles/Vol] 30.0 mmol/L Normal 21.0-32.0 [facility] Comment on above: Performed By: #### L 100.0100, L500.2500 ####[facility] [address] [place], [address] Creatinine [Mass/Vol] 1.07 mg/dL Normal 0.70-1.30 [facility] Comment on above: Result Comment: The validity of the calculated GFR GFRAA in patients over70 years has not been determined. Clinical correlation isessential. Performed By: #### L 100.0100, L500.2500 ####[facility] [address] [place], [address] ECRCL 79.30 ml/min Normal [facility] Comment on above: Performed By: #### L 100.0100, L500.2500 ####[facility] [address] [place], [address] EST GFR - AA 86 mL/min Normal >60 [facility] Comment on above: Result Comment: Afri can Tanzanian GFR Calc Performed By: #### L 100.0100, L500.2500 ####[facility] [address] [place], [address] GAP 8 Normal 5-15 [facility] Comment on above: Performed By: #### L 100.0100, L500.2500 ####[facility] [address] [place], [address] GFR/1.73 sq M.predicted among non-blacks MDRD (S/P/Bld) [Vol rate/Area] 71 mL/min/{1.73_m2} Normal >60 [facility] Comment on above: Result Comment: Non- GFR Calc Performed By: #### L 100.0100, L500.2500 ####[facility] [address] [place], [address] Glucose [Mass/Vol] 114 mg/dL High 74-106 [facility] Comment on above: Result Comment: Fast ing Glucose result from 100 to 125 mg/dLsuggests IMPAIRED HOMEOSTASIS per A.D.A. criteria. Performed By: #### L 100.0100, L500.2500 ####[facility] [address] [place], [address] Potassium [Moles/Vol] 3.2 mmol/L Low 3.5-5.1 [facility] Comment on above: Performed By: #### L 100.0100, L500.2500 ####[facility] [address] [place], [address] Sodium [Moles/Vol] 138 mmol/L Normal 136-145 [facility] Comment on above: Performed By: #### L 100.0100, L500.2500 ####[facility] [address] [place], [address] Urea nitrogen [Mass/Vol] 37 mg/dL High 7-18 [facility] Comment on above: Performed By: #### L 100.0100, L500.2500 ####[facility] [address] [place], [address] Bedside Glucoseon 07-25-2023 FINGERSTICK GLU 277 mg/dL High 74-106 [facility] Comment on above: Result Comment: URSULA CHAMBERS OF PATIENT CARE PER NURSING PROTOCOL Performed By: #### L 501.080 ####[facility] [address] [place], [address] CBC W/Diff, Automatedon 11-0 Absolute Lymph 2.18 X10 3/uL Normal 0.83-4.51 [facility] Comment on above: Performed By: #### L 100.0100, L500.2500 ####[facility] [address] [place], [address] Absolute Neut 9.3 X10 3/uL High 2.0-7.7 [facility] Comment on above: Performed By: #### L 100.0100, L500.2500 ####[facility] [address] [place], [address] Basophils/100 WBC (Bld) 0.4 % Normal 0-1 [facility] Comment on above: Performed By: #### L 100.0100, L500.2500 ####[facility] [address] [place], [address] Eosinophils/100 WBC (Bld) 2.4 % Normal 0-5 [facility] Comment on above: Performed By: #### L 100.0100, L500.2500 ####[facility] [address] [place], [address] Erythrocyte distribution width (RBC) [Ratio] 14.1 % Normal 11.6-14.6 [facility] Comment on above: Performed By: #### L 100.0100, L500.2500 ####[facility] [address] [place], [address] Hematocrit (Bld) [Volume fraction] 38.3 % Low 40-54 [facility] Comment on above: Performed By: #### L 100.0100, L500.2500 ####[facility] [address] [place], [address] Hemoglobin (Bld) [Mass/Vol] 12.3 g/dL Low 13.0-16. 5 [facility] Comment on above: Performed By: #### L 100.0100, L500.2500 ####[facility] [address] [place], [address] IG% 0.800 Normal 0.0-0.9 [facility] Comment on above: Result Comment: IG% - Immature Granulocytes (promyelocytes, myelocytes andmetamyelocytes) > 1% indicates that a LEFT SHIFT is Present. Performed By: #### L 100.0100, L500.2500 ####[facility] [address] [place], [address] Lymphocytes/100 WBC (Bld) 16.4 % Low 19-41 [facility] Comment on above: Performed By: #### L 100.0100, L500.2500 ####[facility] [address] [place], [address] MCH (RBC) [Entitic mass] 26.6 pg Low 27.0-32.0 [facility] Comment on above: Performed By: #### L 100.0100, L500.2500 ####[facility] [address] [place], [address] MCHC (RBC) [Mass/Vol] 32.1 g/dL Normal 32-36 [facility] Comment on above: Performed By: #### L 100.0100, L500.2500 ####[facility] [address] [place], [address] MCV (RBC) [Entitic vol] 82.9 fL Normal 80-94 [facility] Comment on above: Performed By: #### L 100.0100, L500.2500 ####[facility] [address] [place], [address] Monocytes/100 WBC (Bld) 10.5 % High 0-10 [facility] Comment on above: Performed By: #### L 100.0100, L500.2500 ####[facility] [address] [place], [address] Neutrophils/100 WBC (Bld) 69.5 % Normal 47-70 [facility] Comment on above: Performed By: #### L 100.0100, L500.2500 ####[facility] [address] [place], [address] Nucleated RBC (Bld) [#/Vol] 0 10*3/uL Normal 0-5 [facility] Comment on above: Performed By: #### L 100.0100, L500.2500 ####[facility] [address] [place], [address] Platelet mean volume (Bld) [Entitic vol] 10.9 fL Normal 6.2-12.0 [facility] Comment on above: Performed By: #### L 100.0100, L500.2500 ####[facility] [address] [place], [address] Platelets (Bld) [#/Vol] 360 10*3/uL Normal 150-450 [facility] Comment on above: Performed By: #### L 100.0100, L500.2500 ####[facility] [address] [place], [address] RBC (Bld) [#/Vol] 4.62 10*6/uL Normal 4.6-6.2 [facility] Comment on above: Performed By: #### L 100.0100, L500.2500 ####[facility] [address] [place], [address] RDW SD 42.3 fl Normal 35.1-43.9 [facility] Comment on above: Performed By: #### L 100.0100, L500.2500 ####[facility] [address] [place], [address] WBC (Bld) [#/Vol] 13.3 10*3/uL High 4.4-11.0 [facility] Comment on above: Performed By: #### L 100.0100, L500.2500 ####[facility] [address] [place], [address] Basic Metabolic Profile (BMP )on 07-24-2024 BUN/CRE 41.7 RATIO High 10-20 [facility] Comment on above: Performed By: #### L 500.2500, L100.0100 ####[facility] [address] [place], [address] CA,Total 8.7 mg/dL Normal 8.5-10.1 [facility] Comment on above: Performed By: #### L 500.2500, L100.0100 ####[facility] [address] [place], [address] Chloride [Moles/Vol] 104 mmol/L Normal 98-107 [facility] Comment on above: Performed By: #### L 500.2500, L100.0100 ####[facility] [address] [place], [address] CO2 [Moles/Vol] 28.0 mmol/L Normal 21.0-32.0 [facility] Comment on above: Performed By: #### L 500.2500, L100.0100 ####[facility] [address] [place], [address] Creatinine [Mass/Vol] 0.91 mg/dL Normal 0.70-1.30 [facility] Comment on above: Result Comment: The validity of the calculated GFR GFRAA in patients over70 years has not been determined. Clinical correlation isessential. Performed By: #### L 500.2500, L100.0100 ####[facility] [address] [place], [address] ECRCL 93.17 ml/min Normal [facility] Comment on above: Performed By: #### L 500.2500, L100.0100 ####[facility] [address] [place], [address] EST GFR - AA 103 mL/min Normal >60 [facility] Comment on above: Result Comment: Afri can Tanzanian GFR Calc Performed By: #### L 500.2500, L100.0100 ####[facility] [address] [place], [address] GAP 7 Normal 5-15 [facility] Comment on above: Performed By: #### L 500.2500, L100.0100 ####[facility] [address] [place], [address] GFR/1.73 sq M.predicted among non-blacks MDRD (S/P/Bld) [Vol rate/Area] 85 mL/min/{1.73_m2} Normal >60 [facility] Comment on above: Result Comment: Non- GFR Calc Performed By: #### L 500.2500, L100.0100 ####[facility] [address] [place], [address] Glucose [Mass/Vol] 221 mg/dL High 74-106 [facility] Comment on above: Result Comment: Gluc ose result greater than or equal to 200 mg/dLsuggests DIABETES MELLITUS per A.D.A. criteria. Performed By: #### L 500.2500, L100.0100 ####[facility] [address] [place], [address] Potassium [Moles/Vol] 4.0 mmol/L Normal 3.5-5.1 [facility] Comment on above: Performed By: #### L 500.2500, L100.0100 ####[facility] [address] [place], [address] Sodium [Moles/Vol] 139 mmol/L Normal 136-145 [facility] Comment on above: Performed By: #### L 500.2500, L100.0100 ####[facility] [address] [place], [address] Urea nitrogen [Mass/Vol] 38 mg/dL High 7-18 [facility] Comment on above: Performed By: #### L 500.2500, L100.0100 ####[facility] [address] [place], [address] Bedside Glucoseon 07-24-2024 FINGERSTICK GLU 108 mg/dL High 74-106 [facility] Comment on above: Result Comment: URSULA GEMENT OF PATIENT CARE PER NURSING PROTOCOL Performed By: #### L 501.080 ####[facility] [address] [place], [address] FINGERSTICK GLU 192 mg/dL High 74-106 [facility] Comment on above: Result Comment: URSULA GEMENT OF PATIENT CARE PER NURSING PROTOCOL Performed By: #### L 501.080 ####[facility] [address] [place], [address] FINGERSTICK GLU 227 mg/dL High 74-106 [facility] Comment on above: Result Comment: URSULA GEMENT OF PATIENT CARE PER NURSING PROTOCOL Performed By: #### L 501.080 ####[facility] [address] [place], [address] FINGERSTICK GLU 227 mg/dL High 74-106 [facility] Comment on above: Result Comment: URSULA CHAMBERS OF PATIENT CARE PER NURSING PROTOCOL Performed By: #### L 501.080 ####[facility] [address] [place], [address] CBC W/Diff, Automatedon 11-0 7-2024 Absolute Lymph 2.00 X10 3/uL Normal 0.83-4.51 [facility] Comment on above: Performed By: #### L 500.2500, L100.0100 ####[facility] [address] [place], [address] Absolute Neut 8.9 X10 3/uL High 2.0-7.7 [facility] Comment on above: Performed By: #### L 500.2500, L100.0100 ####[facility] [address] [place], [address] Basophils/100 WBC (Bld) 0.3 % Normal 0-1 [facility] Comment on above: Performed By: #### L 500.2500, L100.0100 ####[facility] [address] [place], [address] Eosinophils/100 WBC (Bld) 1.0 % Normal 0-5 [facility] Comment on above: Performed By: #### L 500.2500, L100.0100 ####[facility] [address] [place], [address] Erythrocyte distribution width (RBC) [Ratio] 14.1 % Normal 11.6-14.6 [facility] Comment on above: Performed By: #### L 500.2500, L100.0100 ####[facility] [address] [place], [address] Hematocrit (Bld) [Volume fraction] 37.0 % Low 40-54 [facility] Comment on above: Performed By: #### L 500.2500, L100.0100 ####[facility] [address] [place], [address] Hemoglobin (Bld) [Mass/Vol] 11.5 g/dL Low 13.0-16. 5 [facility] Comment on above: Performed By: #### L 500.2500, L100.0100 ####[facility] [address] [place], [address] IG% 0.600 Normal 0.0-0.9 [facility] Comment on above: Result Comment: IG% - Immature Granulocytes (promyelocytes, myelocytes andmetamyelocytes) > 1% indicates that a LEFT SHIFT is Present. Performed By: #### L 500.2500, L100.0100 ####[facility] [address] [place], [address] Lymphocytes/100 WBC (Bld) 16.0 % Low 19-41 [facility] Comment on above: Performed By: #### L 500.2500, L100.0100 ####[facility] [address] [place], [address] MCH (RBC) [Entitic mass] 26.6 pg Low 27.0-32.0 [facility] Comment on above: Performed By: #### L 500.2500, L100.0100 ####[facility] [address] [place], [address] MCHC (RBC) [Mass/Vol] 31.1 g/dL Low 32-36 [facility] Comment on above: Performed By: #### L 500.2500, L100.0100 ####[facility] [address] [place], [address] MCV (RBC) [Entitic vol] 85.6 fL Normal 80-94 [facility] Comment on above: Performed By: #### L 500.2500, L100.0100 ####[facility] [address] [place], [address] Monocytes/100 WBC (Bld) 11.4 % High 0-10 [facility] Comment on above: Performed By: #### L 500.2500, L100.0100 ####[facility] [address] [place], [address] Neutrophils/100 WBC (Bld) 70.7 % High 47-70 [facility] Comment on above: Performed By: #### L 500.2500, L100.0100 ####[facility] [address] [place], [address] Nucleated RBC (Bld) [#/Vol] 0 10*3/uL Normal 0-5 [facility] Comment on above: Performed By: #### L 500.2500, L100.0100 ####[facility] [address] [place], [address] Platelet mean volume (Bld) [Entitic vol] 11.5 fL Normal 6.2-12.0 [facility] Comment on above: Performed By: #### L 500.2500, L100.0100 ####[facility] [address] [place], [address] Platelets (Bld) [#/Vol] 302 10*3/uL Normal 150-450 [facility] Comment on above: Performed By: #### L 500.2500, L100.0100 ####[facility] [address] [place], [address] RBC (Bld) [#/Vol] 4.32 10*6/uL Low 4.6-6.2 [facility] Comment on above: Performed By: #### L 500.2500, L100.0100 ####[facility] [address] [place], [address] RDW SD 43.9 fl Normal 35.1-43.9 [facility] Comment on above: Performed By: #### L 500.2500, L100.0100 ####[facility] [address] [place], [address] WBC (Bld) [#/Vol] 12.5 10*3/uL High 4.4-11.0 [facility] Comment on above: Performed By: #### L 500.2500, L100.0100 ####[facility] [address] [place], [address] 12 Lead EKGon 07-23-2024 12 Lead EKG Normal [facility] Basic Metabolic Profile (BMP )on 07-23-2024 BUN/CRE 28.7 RATIO High 10-20 [facility] Comment on above: Performed By: #### L 500.2500, L100.0100, L500.4100, L501.5200 ####[facility] [address] [place], [address] CA,Total 9.0 mg/dL Normal 8.5-10.1 [facility] Comment on above: Performed By: #### L 500.2500, L100.0100, L500.4100, L501.5200 ####[facility] [address] [place], [address] Chloride [Moles/Vol] 103 mmol/L Normal 98-107 [facility] Comment on above: Performed By: #### L 500.2500, L100.0100, L500.4100, L501.5200 ####[facility] [address] [place], [address] CO2 [Moles/Vol] 27.0 mmol/L Normal 21.0-32.0 [facility] Comment on above: Performed By: #### L 500.2500, L100.0100, L500.4100, L501.5200 ####[facility] [address] [place], [address] Creatinine [Mass/Vol] 1.08 mg/dL Normal 0.70-1.30 [facility] Comment on above: Result Comment: The validity of the calculated GFR GFRAA in patients over70 years has not been determined. Clinical correlation isessential. Performed By: #### L 500.2500, L100.0100, L500.4100, L501.5200 ####[facility] [address] [place], [address] ECRCL 78.41 ml/min Normal [facility] Comment on above: Performed By: #### L 500.2500, L100.0100, L500.4100, L501.5200 ####[facility] [address] [place], [address] EST GFR - AA 85 mL/min Normal >60 [facility] Comment on above: Result Comment: Afri can Tanzanian GFR Calc Performed By: #### L 500.2500, L100.0100, L500.4100, L501.5200 ####[facility] [address] [place], [address] GAP 7 Normal 5-15 [facility] Comment on above: Performed By: #### L 500.2500, L100.0100, L500.4100, L501.5200 ####[facility] [address] [place], [address] GFR/1.73 sq M.predicted among non-blacks MDRD (S/P/Bld) [Vol rate/Area] 70 mL/min/{1.73_m2} Normal >60 [facility] Comment on above: Result Comment: Non- GFR Calc Performed By: #### L 500.2500, L100.0100, L500.4100, L501.5200 ####[facility] [address] [place], [address] Glucose [Mass/Vol] 330 mg/dL High 74-106 [facility] Comment on above: Result Comment: Gluc ose result greater than or equal to 200 mg/dLsuggests DIABETES MELLITUS per A.D.A. criteria. Performed By: #### L 500.2500, L100.0100, L500.4100, L501.5200 ####[facility] [address] [place], [address] Potassium [Moles/Vol] 3.9 mmol/L Normal 3.5-5.1 [facility] Comment on above: Performed By: #### L 500.2500, L100.0100, L500.4100, L501.5200 ####[facility] [address] [place], [address] Sodium [Moles/Vol] 137 mmol/L Normal 136-145 [facility] Comment on above: Performed By: #### L 500.2500, L100.0100, L500.4100, L501.5200 ####[facility] [address] [place], [address] Urea nitrogen [Mass/Vol] 31 mg/dL High 7-18 [facility] Comment on above: Performed By: #### L 500.2500, L100.0100, L500.4100, L501.5200 ####[facility] [address] [place], [address] Bedside Glucoseon 07-23-2024 FINGERSTICK GLU 352 mg/dL High 74-106 [facility] Comment on above: Result Comment: URSULA GEMENT OF PATIENT CARE PER NURSING PROTOCOL Performed By: #### L 501.080 ####[facility] [address] [place], [address] FINGERSTICK GLU 409 mg/dL High 74-106 [facility] Comment on above: Result Comment: URSULA GEMENT OF PATIENT CARE PER NURSING PROTOCOL Performed By: #### L 501.080 ####[facility] [address] [place], [address] FINGERSTICK GLU 350 mg/dL High 74-106 [facility] Comment on above: Result Comment: URSULA GEMENT OF PATIENT CARE PER NURSING PROTOCOL Performed By: #### L 501.080 ####[facility] [address] [place], [address] FINGERSTICK GLU 301 mg/dL High 74-106 [facility] Comment on above: Result Comment: URSULA GEMENT OF PATIENT CARE PER NURSING PROTOCOL Performed By: #### L 501.080 ####[facility] [address] [place], [address] CBC W/Diff, Automatedon 11-0 6-2023 Absolute Lymph 0.66 X10 3/uL Low 0.83-4.51 [facility] Comment on above: Performed By: #### L 500.2500, L100.0100, L500.4100, L501.5200 ####[facility] [address] [place], [address] Absolute Neut 10.7 X10 3/uL High 2.0-7.7 [facility] Comment on above: Performed By: #### L 500.2500, L100.0100, L500.4100, L501.5200 ####[facility] [address] [place], [address] Basophils/100 WBC (Bld) 0.1 % Normal 0-1 [facility] Comment on above: Performed By: #### L 500.2500, L100.0100, L500.4100, L501.5200 ####[facility] [address] [place], [address] Eosinophils/100 WBC (Bld) 0.0 % Normal 0-5 [facility] Comment on above: Performed By: #### L 500.2500, L100.0100, L500.4100, L501.5200 ####[facility] [address] [place], [address] Erythrocyte distribution width (RBC) [Ratio] 14.0 % Normal 11.6-14.6 [facility] Comment on above: Performed By: #### L 500.2500, L100.0100, L500.4100, L501.5200 ####[facility] [address] [place], [address] Hematocrit (Bld) [Volume fraction] 37.3 % Low 40-54 [facility] Comment on above: Performed By: #### L 500.2500, L100.0100, L500.4100, L501.5200 ####[facility] [address] [place], [address] Hemoglobin (Bld) [Mass/Vol] 11.7 g/dL Low 13.0-16. 5 [facility] Comment on above: Performed By: #### L 500.2500, L100.0100, L500.4100, L501.5200 ####[facility] [address] [place], [address] IG% 0.500 Normal 0.0-0.9 [facility] Comment on above: Result Comment: IG% - Immature Granulocytes (promyelocytes, myelocytes andmetamyelocytes) > 1% indicates that a LEFT SHIFT is Present. Performed By: #### L 500.2500, L100.0100, L500.4100, L501.5200 ####[facility] [address] [place], [address] Lymphocytes/100 WBC (Bld) 5.6 % Low 19-41 [facility] Comment on above: Performed By: #### L 500.2500, L100.0100, L500.4100, L501.5200 ####[facility] [address] [place], [address] MCH (RBC) [Entitic mass] 26.4 pg Low 27.0-32.0 [facility] Comment on above: Performed By: #### L 500.2500, L100.0100, L500.4100, L501.5200 ####[facility] [address] [place], [address] MCHC (RBC) [Mass/Vol] 31.4 g/dL Low 32-36 [facility] Comment on above: Performed By: #### L 500.2500, L100.0100, L500.4100, L501.5200 ####[facility] [address] [place], [address] MCV (RBC) [Entitic vol] 84.0 fL Normal 80-94 [facility] Comment on above: Performed By: #### L 500.2500, L100.0100, L500.4100, L501.5200 ####[facility] [address] [place], [address] Monocytes/100 WBC (Bld) 3.5 % Normal 0-10 [facility] Comment on above: Performed By: #### L 500.2500, L100.0100, L500.4100, L501.5200 ####[facility] [address] [place], [address] Neutrophils/100 WBC (Bld) 90.3 % High 47-70 [facility] Comment on above: Performed By: #### L 500.2500, L100.0100, L500.4100, L501.5200 ####[facility] [address] [place], [address] Nucleated RBC (Bld) [#/Vol] 0 10*3/uL Normal 0-5 [facility] Comment on above: Performed By: #### L 500.2500, L100.0100, L500.4100, L501.5200 ####[facility] [address] [place], [address] Platelet mean volume (Bld) [Entitic vol] 10.6 fL Normal 6.2-12.0 [facility] Comment on above: Performed By: #### L 500.2500, L100.0100, L500.4100, L501.5200 ####[facility] [address] [place], [address] Platelets (Bld) [#/Vol] 339 10*3/uL Normal 150-450 [facility] Comment on above: Performed By: #### L 500.2500, L100.0100, L500.4100, L501.5200 ####[facility] [address] [place], [address] RBC (Bld) [#/Vol] 4.44 10*6/uL Low 4.6-6.2 [facility] Comment on above: Performed By: #### L 500.2500, L100.0100, L500.4100, L501.5200 ####[facility] [address] [place], [address] RDW SD 43.2 fl Normal 35.1-43.9 [facility] Comment on above: Performed By: #### L 500.2500, L100.0100, L500.4100, L501.5200 ####[facility] [address] [place], [address] WBC (Bld) [#/Vol] 11.9 10*3/uL High 4.4-11.0 [facility] Comment on above: Performed By: #### L 500.2500, L100.0100, L500.4100, L501.5200 ####[facility] [address] [place], [address] Lipid Profileon 07-23-2024 Cholesterol [Mass/Vol] 114 mg/dL Normal 200 [facility] Comment on above: Result Comment: <200 mg/dL Desirable 200-240 mg/dL Borderline >240 mg/dL High Risk Performed By: #### L 500.2500, L100.0100, L500.4100, L501.5200 ####[facility] [address] [place], [address] Cholesterol in HDL [Mass/Vol] 47 mg/dL Normal [facility] Comment on above: Result Comment: The drugs N-Acetylcysteine and Metamizole may falselydepress this assay. Reference Range HDL <40 mg/dL Low HDL Cholesterol HDL >or= 60 mg/dL High HDL Cholesterol Performed By: #### L 500.2500, L100.0100, L500.4100, L501.5200 ####[facility] [address] [place], [address] Cholesterol in LDL [Mass/Vol] 56 mg/dL Normal 0-130 [facility] Comment on above: Performed By: #### L 500.2500, L100.0100, L500.4100, L501.5200 ####[facility] [address] [place], [address] Cholesterol in VLDL [Mass/Vol] 11 mg/dL Normal 5-40 [facility] Comment on above: Performed By: #### L 500.2500, L100.0100, L500.4100, L501.5200 ####[facility] [address] [place], [address] Triglyceride [Mass/Vol] 57 mg/dL Normal [facility] Comment on above: Result Comment: The drugs N-Acetylcysteine and Metamizole may falselydepress this assay.Serum Triglycerides Reference Interval Normal <150 mg/dL Borderline high 150 - 199 mg/dL High 200 - 499 mg/dL Very High > or = 500 mg/dL Performed By: #### L 500.2500, L100.0100, L500.4100, L501.5200 ####[facility] [address] [place], [address] Magnesiumon 07-23-2024 Magnesium [Mass/Vol] 2.0 mg/dL Normal 1.6-2.6 [facility] Comment on above: Performed By: #### L 500.2500, L100.0100, L500.4100, L501.5200 ####[facility] [address] [place], [address] RESPIRATORY PANEL MOLECULARo n 07-23-2024 RP PANEL Normal [facility] Comment on above: Performed By: #### M 100.638 ####[facility] [address] [place], [address] 12 Lead EKGon 07-22-2024 12 Lead EKG Normal [facility] BNP,B-Type NATRIURETIC PEPTI Suyapa 07-22-2024 Natriuretic peptide B (Bld) [Mass/Vol] 108.4 pg/mL High 0-100 [facility] Comment on above: Performed By: #### L 503.6620 ####[facility] [address] [place], [address] Basic Metabolic Profile (BMP )on 07-22-2024 BUN/CRE 34.7 RATIO High 10-20 [facility] Comment on above: Order Comment: 'TROP ' Serial specimen #1, #2 or #3: 1 Performed By: #### L 501.4020, L500.2500, L100.0100 ####[facility] [address] [place], [address] CA,Total 9.2 mg/dL Normal 8.5-10.1 [facility] Comment on above: Order Comment: 'TROP ' Serial specimen #1, #2 or #3: 1 Performed By: #### L 501.4020, L500.2500, L100.0100 ####[facility] [address] [place], [address] Chloride [Moles/Vol] 107 mmol/L Normal 98-107 [facility] Comment on above: Order Comment: 'TROP ' Serial specimen #1, #2 or #3: 1 Performed By: #### L 501.4020, L500.2500, L100.0100 ####[facility] [address] [place], [address] CO2 [Moles/Vol] 29.0 mmol/L Normal 21.0-32.0 [facility] Comment on above: Order Comment: 'TROP ' Serial specimen #1, #2 or #3: 1 Performed By: #### L 501.4020, L500.2500, L100.0100 ####[facility] [address] [place], [address] Creatinine [Mass/Vol] 0.92 mg/dL Normal 0.70-1.30 [facility] Comment on above: Order Comment: 'TROP ' Serial specimen #1, #2 or #3: 1 Result Comment: The validity of the calculated GFR GFRAA in patients over70 years has not been determined. Clinical correlation isessential. Performed By: #### L 501.4020, L500.2500, L100.0100 ####[facility] [address] [place], [address] EST GFR - AA 102 mL/min Normal >60 [facility] Comment on above: Order Comment: 'TROP ' Serial specimen #1, #2 or #3: 1 Result Comment: Afri can Tanzanian GFR Calc Performed By: #### L 501.4020, L500.2500, L100.0100 ####[facility] [address] [place], [address] GAP 4 Low 5-15 [facility] Comment on above: Order Comment: 'TROP ' Serial specimen #1, #2 or #3: 1 Performed By: #### L 501.4020, L500.2500, L100.0100 ####[facility] [address] [place], [address] GFR/1.73 sq M.predicted among non-blacks MDRD (S/P/Bld) [Vol rate/Area] 84 mL/min/{1.73_m2} Normal >60 [facility] Comment on above: Order Comment: 'TROP ' Serial specimen #1, #2 or #3: 1 Result Comment: Non- GFR Calc Performed By: #### L 501.4020, L500.2500, L100.0100 ####[facility] [address] [place], [address] Glucose [Mass/Vol] 78 mg/dL Normal 74-106 [facility] Comment on above: Order Comment: 'TROP ' Serial specimen #1, #2 or #3: 1 Performed By: #### L 501.4020, L500.2500, L100.0100 ####[facility] [address] [place], [address] Potassium [Moles/Vol] 3.2 mmol/L Low 3.5-5.1 [facility] Comment on above: Order Comment: 'TROP ' Serial specimen #1, #2 or #3: 1 Performed By: #### L 501.4020, L500.2500, L100.0100 ####[facility] [address] [place], [address] Sodium [Moles/Vol] 139 mmol/L Normal 136-145 [facility] Comment on above: Order Comment: 'TROP ' Serial specimen #1, #2 or #3: 1 Performed By: #### L 501.4020, L500.2500, L100.0100 ####[facility] [address] [place], [address] Urea nitrogen [Mass/Vol] 32 mg/dL High 7-18 [facility] Comment on above: Order Comment: 'TROP ' Serial specimen #1, #2 or #3: 1 Performed By: #### L 501.4020, L500.2500, L100.0100 ####[facility] [address] [place], [address] Bedside Glucoseon 11-05-2024 FINGERSTICK GLU 370 mg/dL High 74-106 [facility] Comment on above: Result Comment: URSULA GEMENT OF PATIENT CARE PER NURSING PROTOCOL Performed By: #### L 501.080 ####[facility] [address] [place], [address] FINGERSTICK GLU 206 mg/dL High 74-106 [facility] Comment on above: Result Comment: URSULA GEMENT OF PATIENT CARE PER NURSING PROTOCOL Performed By: #### L 501.080 ####[facility] [address] [place], [address] CBC W/Diff, Automatedon Absolute Lymph 0.98 X10 3/uL Normal 0.83-4.51 [facility] Comment on above: Performed By: #### L 501.4020, L500.2500, L100.0100 ####[facility] [address] [place], [address] Absolute Neut 13.9 X10 3/uL High 2.0-7.7 [facility] Comment on above: Performed By: #### L 501.4020, L500.2500, L100.0100 ####[facility] [address] [place], [address] Basophils/100 WBC (Bld) 0.2 % Normal 0-1 [facility] Comment on above: Performed By: #### L 501.4020, L500.2500, L100.0100 ####[facility] [address] [place], [address] Eosinophils/100 WBC (Bld) 0.9 % Normal 0-5 [facility] Comment on above: Performed By: #### L 501.4020, L500.2500, L100.0100 ####[facility] [address] [place], [address] Erythrocyte distribution width (RBC) [Ratio] 14.1 % Normal 11.6-14.6 [facility] Comment on above: Performed By: #### L 501.4020, L500.2500, L100.0100 ####[facility] [address] [place], [address] Hematocrit (Bld) [Volume fraction] 40.3 % Normal 40-54 [facility] Comment on above: Performed By: #### L 501.4020, L500.2500, L100.0100 ####[facility] [address] [place], [address] Hemoglobin (Bld) [Mass/Vol] 12.6 g/dL Low 13.0-16. 5 [facility] Comment on above: Performed By: #### L 501.4020, L500.2500, L100.0100 ####[facility] [address] [place], [address] IG% 0.500 Normal 0.0-0.9 [facility] Comment on above: Result Comment: IG% - Immature Granulocytes (promyelocytes, myelocytes andmetamyelocytes) > 1% indicates that a LEFT SHIFT is Present. Performed By: #### L 501.4020, L500.2500, L100.0100 ####[facility] [address] [place], [address] Lymphocytes/100 WBC (Bld) 6.0 % Low 19-41 [facility] Comment on above: Performed By: #### L 501.4020, L500.2500, L100.0100 ####[facility] [address] [place], [address] MCH (RBC) [Entitic mass] 26.6 pg Low 27.0-32.0 [facility] Comment on above: Performed By: #### L 501.4020, L500.2500, L100.0100 ####[facility] [address] [place], [address] MCHC (RBC) [Mass/Vol] 31.3 g/dL Low 32-36 [facility] Comment on above: Performed By: #### L 501.4020, L500.2500, L100.0100 ####[facility] [address] [place], [address] MCV (RBC) [Entitic vol] 85.2 fL Normal 80-94 [facility] Comment on above: Performed By: #### L 501.4020, L500.2500, L100.0100 ####[facility] [address] [place], [address] Monocytes/100 WBC (Bld) 7.7 % Normal 0-10 [facility] Comment on above: Performed By: #### L 501.4020, L500.2500, L100.0100 ####[facility] [address] [place], [address] Neutrophils/100 WBC (Bld) 84.7 % High 47-70 [facility] Comment on above: Performed By: #### L 501.4020, L500.2500, L100.0100 ####[facility] [address] [place], [address] Nucleated RBC (Bld) [#/Vol] 0 10*3/uL Normal 0-5 [facility] Comment on above: Performed By: #### L 501.4020, L500.2500, L100.0100 ####[facility] [address] [place], [address] Platelet mean volume (Bld) [Entitic vol] 10.9 fL Normal 6.2-12.0 [facility] Comment on above: Performed By: #### L 501.4020, L500.2500, L100.0100 ####[facility] [address] [place], [address] Platelets (Bld) [#/Vol] 350 10*3/uL Normal 150-450 [facility] Comment on above: Performed By: #### L 501.4020, L500.2500, L100.0100 ####[facility] [address] [place], [address] RBC (Bld) [#/Vol] 4.73 10*6/uL Normal 4.6-6.2 [facility] Comment on above: Performed By: #### L 501.4020, L500.2500, L100.0100 ####[facility] [address] [place], [address] RDW SD 43.6 fl Normal 35.1-43.9 [facility] Comment on above: Performed By: #### L 501.4020, L500.2500, L100.0100 ####[facility] [address] [place], [address] WBC (Bld) [#/Vol] 16.4 10*3/uL High 4.4-11.0 [facility] Comment on above: Performed By: #### L 501.4020, L500.2500, L100.0100 ####[facility] [address] [place], [address] Chest 1 View (Portable)on Chest 1 View (Portable) Normal [facility] Echo Complete W/ Contraston 07-22-2024 Echo Complete W/ Contrast Normal [facility] Emergency Department Summary on 07-22-2024 Emergency Department Summary Normal [facility] H AND P Exam - Hospitaliston 07-22-2024 H&P Exam - Hospitalist Normal [facility] L501.4020on 07-22-2024 TROPONIN-I HS 14 pg/mL Normal 3.0-78.0 [facility] Comment on above: Order Comment: 'TROP ' Serial specimen #1, #2 or #3: 1 Result Comment: Hannah irwin Note: New Test Units and Gender Specific Reference Ranges. For more information see Policy Stat Procedure [place] High Sensitivity Troponin (TNIH) and attachments. Performed By: #### L 501.4020, L500.2500, L100.0100 ####[facility] [address] [place], [address] M100.678on 07-22-2024 M100.678 Pending SARS-CoV-2 (COVID 19) Negative INFLUENZA A Negative INFLUENZA B Negative RSV PCR Negative Normal [facility] Comment on above: Performed By: #### M 100.678 ####[facility] [address] [place], [address] Urinalysis, Completeon 07-22 BACTERIA RARE Normal None Seen [facility] Comment on above: Order Comment: CLEAN CATCH Performed By: #### L 400.0001 ####[facility] [address] [place], [address] EPI,SQUAMOUS 0-5 SEEN Normal 0-5 [facility] Comment on above: Order Comment: CLEAN CATCH Performed By: #### L 400.0001 ####[facility] [address] [place], [address] RBC 0-5 SEEN Normal 0-5 [facility] Comment on above: Order Comment: CLEAN CATCH Performed By: #### L 400.0001 ####[facility] [address] [place], [address] WBC 0-5 SEEN Normal 0-5 [facility] Comment on above: Order Comment: CLEAN CATCH Performed By: #### L 400.0001 ####[facility] [address] [place], [address] Mucus Ql (Urine sed) 0 SEEN Normal [facility] Comment on above: Order Comment: CLEAN CATCH Performed By: #### L 400.0001 ####[facility] [address] [place], [address] 12 Lead EKGon 07-11-2024 12 Lead EKG Normal [facility] Bedside Glucoseon 07-11-2024 FINGERSTICK GLU 185 mg/dL High 74-106 [facility] Comment on above: Result Comment: URSULA GEMENT OF PATIENT CARE PER NURSING PROTOCOL Performed By: #### L 501.080 ####[facility] [address] [place], [address] FINGERSTICK GLU 272 mg/dL High 74-106 [facility] Comment on above: Result Comment: URSULA GEMENT OF PATIENT CARE PER NURSING PROTOCOL Performed By: #### L 501.080 ####[facility] [address] [place], [address] CBC W/Diff, Automatedon 06-18 Absolute Lymph 1.67 X10 3/uL Normal 0.83-4.51 [facility] Comment on above: Performed By: #### L 501.9520, L501.5200, L100.0100, L500.4050, L501.9985, L500.4100, L501.2300 ####[facility] [address] [place], [address] Absolute Neut 7.7 X10 3/uL Normal 2.0-7.7 [facility] Comment on above: Performed By: #### L 501.9520, L501.5200, L100.0100, L500.4050, L501.9985, L500.4100, L501.2300 ####[facility] [address] [place], [address] Basophils/100 WBC (Bld) 0.3 % Normal 0-1 [facility] Comment on above: Performed By: #### L 501.9520, L501.5200, L100.0100, L500.4050, L501.9985, L500.4100, L501.2300 ####[facility] [address] [place], [address] Eosinophils/100 WBC (Bld) 2.9 % Normal 0-5 [facility] Comment on above: Performed By: #### L 501.9520, L501.5200, L100.0100, L500.4050, L501.9985, L500.4100, L501.2300 ####[facility] [address] [place], [address] Erythrocyte distribution width (RBC) [Ratio] 13.7 % Normal 11.6-14.6 [facility] [facility] Comment on above: Performed By: #### L 501.9520, L501.5200, L100.0100, L500.4050, L501.9985, L500.4100, L501.2300 ####[facility] [address] [place], [address] Hematocrit (Bld) [Volume fraction] 34.7 % Low 40-54 [facility] Comment on above: Performed By: #### L 501.9520, L501.5200, L100.0100, L500.4050, L501.9985, L500.4100, L501.2300 ####[facility] [address] [place], [address] Hemoglobin (Bld) [Mass/Vol] 11.2 g/dL Low 13.0-16. 5 [facility] Comment on above: Performed By: #### L 501.9520, L501.5200, L100.0100, L500.4050, L501.9985, L500.4100, L501.2300 ####[facility] [address] [place], [address] IG% 0.500 Normal 0.0-0.9 [facility] Comment on above: Result Comment: IG% - Immature Granulocytes (promyelocytes, myelocytes andmetamyelocytes) > 1% indicates that a LEFT SHIFT is Present. Performed By: #### L 501.9520, L501.5200, L100.0100, L500.4050, L501.9985, L500.4100, L501.2300 ####[facility] [address] [place], [address] Lymphocytes/100 WBC (Bld) 15.3 % Low 19-41 [facility] Comment on above: Performed By: #### L 501.9520, L501.5200, L100.0100, L500.4050, L501.9985, L500.4100, L501.2300 ####[facility] [address] [place], [address] MCH (RBC) [Entitic mass] 27.2 pg Normal 27.0-32.0 [facility] Comment on above: Performed By: #### L 501.9520, L501.5200, L100.0100, L500.4050, L501.9985, L500.4100, L501.2300 ####[facility] [address] [place], [address] MCHC (RBC) [Mass/Vol] 32.3 g/dL Normal 32-36 [facility] Comment on above: Performed By: #### L 501.9520, L501.5200, L100.0100, L500.4050, L501.9985, L500.4100, L501.2300 ####[facility] [address] [place], [address] MCV (RBC) [Entitic vol] 84.2 fL Normal 80-94 [facility] Comment on above: Performed By: #### L 501.9520, L501.5200, L100.0100, L500.4050, L501.9985, L500.4100, L501.2300 ####[facility] [address] [place], [address] Monocytes/100 WBC (Bld) 11.0 % High 0-10 [facility] Comment on above: Performed By: #### L 501.9520, L501.5200, L100.0100, L500.4050, L501.9985, L500.4100, L501.2300 ####[facility] [address] [place], [address] Neutrophils/100 WBC (Bld) 70.0 % Normal 47-70 [facility] Comment on above: Performed By: #### L 501.9520, L501.5200, L100.0100, L500.4050, L501.9985, L500.4100, L501.2300 ####[facility] [address] [place], [address] Nucleated RBC (Bld) [#/Vol] 0 10*3/uL Normal 0-5 [facility] Comment on above: Performed By: #### L 501.9520, L501.5200, L100.0100, L500.4050, L501.9985, L500.4100, L501.2300 ####[facility] [address] [place], [address] Platelet mean volume (Bld) [Entitic vol] 10.7 fL Normal 6.2-12.0 [facility] Comment on above: Performed By: #### L 501.9520, L501.5200, L100.0100, L500.4050, L501.9985, L500.4100, L501.2300 ####[facility] [address] [place], [address] Platelets (Bld) [#/Vol] 239 10*3/uL Normal 150-450 [facility] Comment on above: Performed By: #### L 501.9520, L501.5200, L100.0100, L500.4050, L501.9985, L500.4100, L501.2300 ####[facility] [address] [place], [address] RBC (Bld) [#/Vol] 4.12 10*6/uL Low 4.6-6.2 [facility] Comment on above: Performed By: #### L 501.9520, L501.5200, L100.0100, L500.4050, L501.9985, L500.4100, L501.2300 ####[facility] [address] [place], [address] RDW SD 41.8 fl Normal 35.1-43.9 [facility] Comment on above: Performed By: #### L 501.9520, L501.5200, L100.0100, L500.4050, L501.9985, L500.4100, L501.2300 ####[facility] [address] [place], [address] WBC (Bld) [#/Vol] 11.0 10*3/uL Normal 4.4-11.0 [facility] Comment on above: Performed By: #### L 501.9520, L501.5200, L100.0100, L500.4050, L501.9985, L500.4100, L501.2300 ####[facility] [address] [place], [address] Comprehensive Metabolic Prof ilon 07-11-2024 Albumin [Mass/Vol] 3.0 g/dL Low 3.2-5.0 [facility] Comment on above: Performed By: #### L 501.9520, L501.5200, L100.0100, L500.4050, L501.9985, L500.4100, L501.2300 ####[facility] [address] [place], [address] Albumin/Globulin [Mass ratio] 0.8 {ratio} Low 0.9-2.4 [facility] Comment on above: Performed By: #### L 501.9520, L501.5200, L100.0100, L500.4050, L501.9985, L500.4100, L501.2300 ####[facility] [address] [place], [address] ALK P 69 U/L Normal 45-117 [facility] Comment on above: Performed By: #### L 501.9520, L501.5200, L100.0100, L500.4050, L501.9985, L500.4100, L501.2300 ####[facility] [address] [place], [place], [id number] ALT [Catalytic activity/Vol] 18 U/L Normal 16-61 [facility] Comment on above: Performed By: #### L 501.9520, L501.5200, L100.0100, L500.4050, L501.9985, L500.4100, L501.2300 ####[facility] [address] [place], [place], [id number] AST [Catalytic activity/Vol] 14 U/L Low 15-37 [facility] Comment on above: Performed By: #### L 501.9520, L501.5200, L100.0100, L500.4050, L501.9985, L500.4100, L501.2300 ####[facility] [address] [place], [address] Bilirubin [Mass/Vol] 0.40 mg/dL Normal 0.20-1.00 [facility] Comment on above: Result Comment: For patients on eltrombopag therapy, use of Dimension [place] TBIL is not recommended. Performed By: #### L 501.9520, L501.5200, L100.0100, L500.4050, L501.9985, L500.4100, L501.2300 ####[facility] [address] [place], [address] BUN/CRE 22.0 RATIO High 10-20 [facility] Comment on above: Performed By: #### L 501.9520, L501.5200, L100.0100, L500.4050, L501.9985, L500.4100, L501.2300 ####[facility] [address] [place], [address] CA,Total 8.7 mg/dL Normal 8.5-10.1 [facility] Comment on above: Performed By: #### L 501.9520, L501.5200, L100.0100, L500.4050, L501.9985, L500.4100, L501.2300 ####[facility] [address] [place], [address] Chloride [Moles/Vol] 101 mmol/L Normal 98-107 [facility] Comment on above: Performed By: #### L 501.9520, L501.5200, L100.0100, L500.4050, L501.9985, L500.4100, L501.2300 ####[facility] [address] [place], [address] CO2 [Moles/Vol] 26.0 mmol/L Normal 21.0-32.0 [facility] Comment on above: Performed By: #### L 501.9520, L501.5200, L100.0100, L500.4050, L501.9985, L500.4100, L501.2300 ####[facility] [address] [place], [address] Creatinine [Mass/Vol] 1.00 mg/dL Normal 0.70-1.30 [facility] Comment on above: Result Comment: The validity of the calculated GFR GFRAA in patients over70 years has not been determined. Clinical correlation isessential. Performed By: #### L 501.9520, L501.5200, L100.0100, L500.4050, L501.9985, L500.4100, L501.2300 ####[facility] [address] [place], [address] ECRCL 82.35 ml/min Normal [facility] Comment on above: Performed By: #### L 501.9520, L501.5200, L100.0100, L500.4050, L501.9985, L500.4100, L501.2300 ####[facility] [address] [place], [address] EST GFR - AA 92 mL/min Normal >60 [facility] Comment on above: Result Comment: Afri can Tanzanian GFR Calc Performed By: #### L 501.9520, L501.5200, L100.0100, L500.4050, L501.9985, L500.4100, L501.2300 ####[facility] [address] [place], [place], [id number] GAP 4 Low 5-15 [facility] Comment on above: Performed By: #### L 501.9520, L501.5200, L100.0100, L500.4050, L501.9985, L500.4100, L501.2300 ####[facility] [address] [place], [place], [address] GFR/1.73 sq M.predicted among non-blacks MDRD (S/P/Bld) [Vol rate/Area] 76 mL/min/{1.73_m2} Normal >60 [facility] Comment on above: Result Comment: Non- GFR Calc Performed By: #### L 501.9520, L501.5200, L100.0100, L500.4050, L501.9985, L500.4100, L501.2300 ####[facility] [address] [place], [place], [id number] Globulin (S) [Mass/Vol] 3.8 g/dL Normal 2.2-4.2 [facility] Comment on above: Performed By: #### L 501.9520, L501.5200, L100.0100, L500.4050, L501.9985, L500.4100, L501.2300 ####[facility] [address] [place], [address] Glucose [Mass/Vol] 185 mg/dL High 74-106 [facility] Comment on above: Result Comment: Fast ing Glucose result greater than or equal to 126 mg/dLsuggests DIABETES MELLITUS per A.D.A. criteria. Performed By: #### L 501.9520, L501.5200, L100.0100, L500.4050, L501.9985, L500.4100, L501.2300 ####[facility] [address] [place], [address] Potassium [Moles/Vol] 3.6 mmol/L Normal 3.5-5.1 [facility] Comment on above: Performed By: #### L 501.9520, L501.5200, L100.0100, L500.4050, L501.9985, L500.4100, L501.2300 ####[facility] [address] [place], [address] Sodium [Moles/Vol] 132 mmol/L Low 136-145 [facility] Comment on above: Performed By: #### L 501.9520, L501.5200, L100.0100, L500.4050, L501.9985, L500.4100, L501.2300 ####[facility] [address] [place], [address] T PROT 6.8 g/dL Normal 6.4-8.2 [facility] Comment on above: Performed By: #### L 501.9520, L501.5200, L100.0100, L500.4050, L501.9985, L500.4100, L501.2300 ####[facility] [address] [place], [place], [id number] Urea nitrogen [Mass/Vol] 22 mg/dL High 7-18 [facility] Comment on above: Performed By: #### L 501.9520, L501.5200, L100.0100, L500.4050, L501.9985, L500.4100, L501.2300 ####[facility] [address] [place], [place], [id number] Discharge Instructionon 06-[address] [facility] Hemoglobin A1con 07-11-2024 HbA1c (Bld) [Mass fraction] 7.0 % High 3.8-5.6 [facility] Comment on above: Result Comment: Norm al < 5.7 % Prediabetic 5.7 - 6.4 % Diabetic >or= 6.5 % Please note range changes. Performed By: #### L 501.9520, L501.5200, L100.0100, L500.4050, L501.9985, L500.4100, L501.2300 ####[facility] [address] [place], [place], [id number] Lipid Profileon 07-11-2024 Cholesterol [Mass/Vol] 97 mg/dL Normal 200 [facility] Comment on above: Result Comment: <200 mg/dL Desirable 200-240 mg/dL Borderline >240 mg/dL High Risk Performed By: #### L 501.9520, L501.5200, L100.0100, L500.4050, L501.9985, L500.4100, L501.2300 ####[facility] [address] [place], [place], [id number] Cholesterol in HDL [Mass/Vol] 41 mg/dL Normal [facility] Comment on above: Result Comment: The drugs N-Acetylcysteine and Metamizole may falselydepress this assay. Reference Range HDL <40 mg/dL Low HDL Cholesterol HDL >or= 60 mg/dL High HDL Cholesterol Performed By: #### L 501.9520, L501.5200, L100.0100, L500.4050, L501.9985, L500.4100, L501.2300 ####[facility] [address] [place], [address] Cholesterol in LDL [Mass/Vol] 34 mg/dL Normal 0-130 [facility] Comment on above: Performed By: #### L 501.9520, L501.5200, L100.0100, L500.4050, L501.9985, L500.4100, L501.2300 ####[facility] [address] [place], [address] Cholesterol in VLDL [Mass/Vol] 22 mg/dL Normal 5-40 [facility] Comment on above: Performed By: #### L 501.9520, L501.5200, L100.0100, L500.4050, L501.9985, L500.4100, L501.2300 ####[facility] [address] [place], [address] Triglyceride [Mass/Vol] 108 mg/dL Normal [facility] Comment on above: Result Comment: The drugs N-Acetylcysteine and Metamizole may falselydepress this assay.Serum Triglycerides Reference Interval Normal <150 mg/dL Borderline high 150 - 199 mg/dL High 200 - 499 mg/dL Very High > or = 500 mg/dL Performed By: #### L 501.9520, L501.5200, L100.0100, L500.4050, L501.9985, L500.4100, L501.2300 ####[facility] [address] [place], [address] Magnesiumon 07-11-2024 Magnesium [Mass/Vol] 2.1 mg/dL Normal 1.6-2.6 [facility] Comment on above: Performed By: #### L 501.9520, L501.5200, L100.0100, L500.4050, L501.9985, L500.4100, L501.2300 ####[facility] [address] [place], [address] Phosphoruson 07-11-2024 Phosphate [Mass/Vol] 2.7 mg/dL Normal 2.5-4.9 [facility] Comment on above: Performed By: #### L 501.9520, L501.5200, L100.0100, L500.4050, L501.9985, L500.4100, L501.2300 ####[facility] [address] [place], [place], [address] Stress Reporton 07-11-2024 Stress Report Normal [facility] Thyroid Stim Hormone (TSH)on 07-11-2024 TSH 1.450 uIU/mL Normal 0.358-3.740 [facility] Comment on above: Performed By: #### L 501.9520, L501.5200, L100.0100, L500.4050, L501.9985, L500.4100, L501.2300 ####[facility] [address] [place], [place], [address] 12 Lead EKGon 07-10-2024 12 Lead EKG Normal [facility] 12 Lead EKG Normal [facility] 12 Lead EKG Normal [facility] Abdomen/Pelvis without Conto n 07-10-2024 Abdomen/Pelvis without Cont Normal [facility] BNP,B-Type NATRIURETIC PEPTI Suyapa 07-10-2024 Natriuretic peptide B (Bld) [Mass/Vol] 54.9 pg/mL Normal 0-100 [facility] Comment on above: Performed By: #### L 503.6620 ####[facility] [address] [place], [place], [id number] Basic Metabolic Profile (BMP )on 07-10-2024 BUN/CRE 21.8 RATIO High - [facility] Comment on above: Order Comment: 1Y Performed By: #### L 500.2500, L100.0100, L501.5425 ####[facility] [address] [place], [address] CA,Total 9.4 mg/dL Normal 8.5-10.1 [facility] Comment on above: Order Comment: 1Y Performed By: #### L 500.2500, L100.0100, L501.5425 ####[facility] [address] [place], [address] Chloride [Moles/Vol] 103 mmol/L Normal 98-107 [facility] Comment on above: Order Comment: 1Y Performed By: #### L 500.2500, L100.0100, L501.5425 ####[facility] [address] [place], [address] CO2 [Moles/Vol] 29.0 mmol/L Normal 21.0-32.0 [facility] Comment on above: Order Comment: 1Y Performed By: #### L 500.2500, L100.0100, L501.5425 ####[facility] [address] [place], [address] Creatinine [Mass/Vol] 1.24 mg/dL Normal 0.70-1.30 [facility] Comment on above: Order Comment: 1Y Result Comment: The validity of the calculated GFR GFRAA in patients over70 years has not been determined. Clinical correlation isessential. Performed By: #### L 500.2500, L100.0100, L501.5425 ####[facility] [address] [place], [address] ECRCL 69.31 ml/min Normal [facility] Comment on above: Order Comment: 1Y Performed By: #### L 500.2500, L100.0100, L501.5425 ####[facility] [address] [place], [address] EST GFR - AA 72 mL/min Normal >60 [facility] Comment on above: Order Comment: 1Y Result Comment: Afri can Tanzanian GFR Calc Performed By: #### L 500.2500, L100.0100, L501.5425 ####[facility] [address] [place], [address] GAP 5 Normal 5-15 [facility] Comment on above: Order Comment: 1Y Performed By: #### L 500.2500, L100.0100, L501.5425 ####[facility] [address] [place], [address] GFR/1.73 sq M.predicted among non-blacks MDRD (S/P/Bld) [Vol rate/Area] 60 mL/min/{1.73_m2} Normal >60 [facility] Comment on above: Order Comment: 1Y Result Comment: Non- GFR Calc Performed By: #### L 500.2500, L100.0100, L501.5425 ####[facility] [address] [place], [address] Glucose [Mass/Vol] 152 mg/dL High 74-106 [facility] Comment on above: Order Comment: 1Y Result Comment: Fast ing Glucose result greater than or equal to 126 mg/dLsuggests DIABETES MELLITUS per A.D.A. criteria. Performed By: #### L 500.2500, L100.0100, L501.5425 ####[facility] [address] [place], [address] Potassium [Moles/Vol] 3.8 mmol/L Normal 3.5-5.1 [facility] Comment on above: Order Comment: 1Y Performed By: #### L 500.2500, L100.0100, L501.5425 ####[facility] [address] [place], [address] Sodium [Moles/Vol] 137 mmol/L Normal 136-145 [facility] Comment on above: Order Comment: 1Y Performed By: #### L 500.2500, L100.0100, L501.5425 ####[facility] [address] [place], [address] Urea nitrogen [Mass/Vol] 27 mg/dL High 7-18 [facility] Comment on above: Order Comment: 1Y Performed By: #### L 500.2500, L100.0100, L501.5425 ####[facility] [address] [place], [address] Bedside Glucoseon --2023 FINGERSTICK GLU 155 mg/dL High 74-106 [facility] Comment on above: Result Comment: URSULA GEMENT OF PATIENT CARE PER NURSING PROTOCOL Performed By: #### L 501.080 ####[facility] [address] [place], [address] FINGERSTICK GLU 173 mg/dL High 74-106 [facility] Comment on above: Result Comment: URSULA GEMENT OF PATIENT CARE PER NURSING PROTOCOL Performed By: #### L 501.080 ####[facility] [address] [place], [address] CBC W/Diff, Automatedon 10-2 Absolute Lymph 1.31 X10 3/uL Normal 0.83-4.51 [facility] Comment on above: Performed By: #### L 500.2500, L100.0100, L501.5425 ####[facility] [address] [place], [address] Absolute Neut 14.3 X10 3/uL High 2.0-7.7 [facility] Comment on above: Performed By: #### L 500.2500, L100.0100, L501.5425 ####[facility] [address] [place], [address] Basophils/100 WBC (Bld) 0.3 % Normal 0-1 [facility] Comment on above: Performed By: #### L 500.2500, L100.0100, L501.5425 ####[facility] [address] [place], [address] Eosinophils/100 WBC (Bld) 2.0 % Normal 0-5 [facility] Comment on above: Performed By: #### L 500.2500, L100.0100, L501.5425 ####[facility] [address] [place], [address] Erythrocyte distribution width (RBC) [Ratio] 13.7 % Normal 11.6-14.6 [facility] Comment on above: Performed By: #### L 500.2500, L100.0100, L501.5425 ####[facility] [address] [place], [address] Hematocrit (Bld) [Volume fraction] 39.2 % Low 40-54 [facility] Comment on above: Performed By: #### L 500.2500, L100.0100, L501.5425 ####[facility] [address] [place], [address] Hemoglobin (Bld) [Mass/Vol] 12.5 g/dL Low 13.0-16. 5 [facility] Comment on above: Performed By: #### L 500.2500, L100.0100, L501.5425 ####[facility] [address] [place], [address] IG% 0.400 Normal 0.0-0.9 [facility] Comment on above: Result Comment: IG% - Immature Granulocytes (promyelocytes, myelocytes andmetamyelocytes) > 1% indicates that a LEFT SHIFT is Present. Performed By: #### L 500.2500, L100.0100, L501.5425 ####[facility] [address] [place], [address] Lymphocytes/100 WBC (Bld) 7.5 % Low 19-41 [facility] Comment on above: Performed By: #### L 500.2500, L100.0100, L501.5425 ####[facility] [address] [place], [address] MCH (RBC) [Entitic mass] 27.5 pg Normal 27.0-32.0 [facility] Comment on above: Performed By: #### L 500.2500, L100.0100, L501.5425 ####[facility] [address] [place], [address] MCHC (RBC) [Mass/Vol] 31.9 g/dL Low 32-36 [facility] Comment on above: Performed By: #### L 500.2500, L100.0100, L501.5425 ####[facility] [address] [place], [address] MCV (RBC) [Entitic vol] 86.2 fL Normal 80-94 [facility] Comment on above: Performed By: #### L 500.2500, L100.0100, L501.5425 ####[facility] [address] [place], [address] Monocytes/100 WBC (Bld) 7.9 % Normal 0-10 [facility] Comment on above: Performed By: #### L 500.2500, L100.0100, L501.5425 ####[facility] [address] [place], [address] Neutrophils/100 WBC (Bld) 81.9 % High 47-70 [facility] Comment on above: Performed By: #### L 500.2500, L100.0100, L501.5425 ####[facility] [address] [place], [address] Nucleated RBC (Bld) [#/Vol] 0 10*3/uL Normal 0-5 [facility] Comment on above: Performed By: #### L 500.2500, L100.0100, L501.5425 ####[facility] [address] [place], [address] Platelet mean volume (Bld) [Entitic vol] 11.3 fL Normal 6.2-12.0 [facility] Comment on above: Performed By: #### L 500.2500, L100.0100, L501.5425 ####[facility] [address] [place], [address] Platelets (Bld) [#/Vol] 255 10*3/uL Normal 150-450 [facility] Comment on above: Performed By: #### L 500.2500, L100.0100, L501.5425 ####[facility] [address] [place], [address] RBC (Bld) [#/Vol] 4.55 10*6/uL Low 4.6-6.2 [facility] Comment on above: Performed By: #### L 500.2500, L100.0100, L501.5425 ####[facility] [address] [place], [address] RDW SD 42.7 fl Normal 35.1-43.9 [facility] Comment on above: Performed By: #### L 500.2500, L100.0100, L501.5425 ####[facility] [address] [place], [address] WBC (Bld) [#/Vol] 17.5 10*3/uL High 4.4-11.0 [facility] Comment on above: Performed By: #### L 500.2500, L100.0100, L501.5425 ####[facility] [address] [place], [address] Chest 1 View (Portable)on Chest 1 View (Portable) Normal [facility] D-Dimer Quantitative (DVT/PE )on 07-10-2024 D-DIMER QUANT 0.39 FEU/ug/m Normal 0.27-0.49 [facility] Comment on above: Result Comment: NORM AL D-Dimer level (<0.50) indicates no DVT or PE. Performed By: #### L 300.8000 ####[facility] [address] [place], [place], [address] Emergency Department Summary on 07-10-2024 Emergency Department Summary Normal [facility] H AND P Exam - [facility] 07-10-2024 H&P Exam - Hospitalist Normal [facility] Hemoglobin A1con 07-10-2024 HbA1c (Bld) [Mass fraction] 7.0 % High 3.8-5.6 [facility] Comment on above: Result Comment: Norm al < 5.7 % Prediabetic 5.7 - 6.4 % Diabetic >or= 6.5 % Please note range changes. Performed By: #### L [id number] ####[facility] [address] [place], [address] [id number] 07-10-2024 TROPONIN-I HS 6 pg/mL Normal 3.0-78.0 [facility] Comment on above: Order Comment: Comme nts: SPECIMEN #3'TROP' Serial specimen #1, #2 or #3: 3 Result Comment: Plea se Note: New Test Units and Gender Specific Reference Ranges. For more information see Policy Stat Procedure [employer] High Sensitivity Troponin (TNIH) and attachments. Performed By: #### L [id number] ####[facility] [id number] [address] [place], [place], [address] TROPONIN-I HS 8 pg/mL Normal 3.0-78.0 [facility] Comment on above: Result Comment: Plea se Note: New Test Units and Gender Specific Reference Ranges. For more information see Policy Stat Procedure [place] High Sensitivity Troponin (TNIH) and attachments. Performed By: #### L 501.4020 ####[facility] [address] [place], [address] L501.5425on 07-10-2024 TROPONIN-I HS 8 pg/mL Normal 3.0-78.0 [facility] Comment on above: Order Comment: 1Y Result Comment: Hannah irwin Note: New Test Units and Gender Specific Reference Ranges. For more information see Policy Stat Procedure [place] High Sensitivity Troponin (TNIH) and attachments. Performed By: #### L 500.2500, L100.0100, L501.5425 ####[facility] [address] [place], [address] Lipid Profileon 07-10-2024 Cholesterol [Mass/Vol] 93 mg/dL Normal 200 [facility] Comment on above: Result Comment: <200 mg/dL Desirable 200-240 mg/dL Borderline >240 mg/dL High Risk Performed By: #### L 500.4100 ####[facility] [address] [place], [address] Cholesterol in HDL [Mass/Vol] 38 mg/dL Low [facility] Comment on above: Result Comment: The drugs N-Acetylcysteine and Metamizole may falselydepress this assay. Reference Range HDL <40 mg/dL Low HDL Cholesterol HDL >or= 60 mg/dL High HDL Cholesterol Performed By: #### L 500.4100 ####[facility] [address] [place], [address] Cholesterol in LDL [Mass/Vol] 40 mg/dL Normal 0-130 [facility] Comment on above: Performed By: #### L 500.4100 ####[facility] [address] [place], [address] Cholesterol in VLDL [Mass/Vol] 15 mg/dL Normal 5-40 [facility] Comment on above: Performed By: #### L 500.4100 ####[facility] [address] [place], [address] Triglyceride [Mass/Vol] 77 mg/dL Normal [facility] Comment on above: Result Comment: The drugs N-Acetylcysteine and Metamizole may falselydepress this assay.Serum Triglycerides Reference Interval Normal <150 mg/dL Borderline high 150 - 199 mg/dL High 200 - 499 mg/dL Very High > or = 500 mg/dL Performed By: #### L 500.4100 ####[facility] [address] [place], [address] Urinalysis, Completeon 07-10 BACTERIA 1+ /hpf Normal None Seen [facility] Comment on above: Order Comment: COLOR OF URINE MAY AFFECT DIPSTICK RESULTS.CLEAN CATCH Performed By: #### L 400.0001 ####[facility] [address] [place], [address] EPI,SQUAMOUS 5-10 SEEN Normal [address] [place] [address] Comment on above: Order Comment: COLOR OF URINE MAY AFFECT DIPSTICK RESULTS.CLEAN CATCH Performed By: #### L 400.0001 ####[facility] [address] [place], [address] Mucus Ql (Urine sed) 1+ /hpf Normal [facility] Comment on above: Order Comment: COLOR OF URINE MAY AFFECT DIPSTICK RESULTS.CLEAN CATCH Performed By: #### L 400.0001 ####[facility] [address] [place], [address] RBC > 100 SEEN Normal 0-5 [facility] Comment on above: Order Comment: COLOR OF URINE MAY AFFECT DIPSTICK RESULTS.CLEAN CATCH Performed By: #### L 400.0001 ####[facility] [address] [place], [address] WBC 50-100 SEEN Normal 0-[address] [place] [address] Comment on above: Order Comment: COLOR OF URINE MAY AFFECT DIPSTICK RESULTS.CLEAN CATCH Performed By: #### L 400.0001 ####[facility] [address] [place], [address] Urine Cultureon 07-10-2024 [facility] Mixed Gram Positive Organisms [place] Count 25,000-50,000 MIXC Mixed contaminants. Submit a new specimen if indicated. Normal [facility] Comment on above: Performed By: #### M 100.2200 ####[facility] [address] [place], [address] Basic Metabolic Profile (BMP )on 07-04-2024 BUN/CRE 16.7 RATIO Normal -20 [facility] Comment on above: Performed By: #### L 500.2500 ####[facility] [address] [place], [address] CA,Total 9.6 mg/dL Normal 8.5-10.1 [facility] Comment on above: Performed By: #### L 500.2500 ####[facility] [address] [place], [address] Chloride [Moles/Vol] 102 mmol/L Normal 98-107 [facility] Comment on above: Performed By: #### L 500.2500 ####[facility] [address] [place], [address] CO2 [Moles/Vol] 26.0 mmol/L Normal 21.0-32.0 [facility] Comment on above: Performed By: #### L 500.2500 ####[facility] [address] [place], [address] Creatinine [Mass/Vol] 1.14 mg/dL Normal 0.70-1.30 [facility] Comment on above: Result Comment: The validity of the calculated GFR GFRAA in patients over70 years has not been determined. Clinical correlation isessential. Performed By: #### L 500.2500 ####[facility] [address] [place], [address] EST GFR - AA 79 mL/min Normal >60 [facility] Comment on above: Result Comment: Afri can Tanzanian GFR Calc Performed By: #### L 500.2500 ####[facility] [address] [place], [address] GAP 5 Normal 5-15 [facility] Comment on above: Performed By: #### L 500.2500 ####[facility] [address] [place], [address] GFR/1.73 sq M.predicted among non-blacks MDRD (S/P/Bld) [Vol rate/Area] 66 mL/min/{1.73_m2} Normal >60 [facility] Comment on above: Result Comment: Non- GFR Calc Performed By: #### L 500.2500 ####[facility] [address] [place], [address] Glucose [Mass/Vol] 111 mg/dL High 74-106 [facility] Comment on above: Result Comment: Fast ing Glucose result from 100 to 125 mg/dLsuggests IMPAIRED HOMEOSTASIS per A.D.A. criteria. Performed By: #### L 500.2500 ####[facility] [address] [place], [address] Potassium [Moles/Vol] 4.0 mmol/L Normal 3.5-5.1 [facility] Comment on above: Performed By: #### L 500.2500 ####[facility] [address] [place], [address] Sodium [Moles/Vol] 134 mmol/L Low 136-145 [facility] Comment on above: Performed By: #### L 500.2500 ####[facility] [address] [place], [address] Urea nitrogen [Mass/Vol] 19 mg/dL High 7-18 [facility] Comment on above: Performed By: #### L 500.2500 ####[facility] [address] [place], [address] Cardiology Visit Reporton Cardiology Visit Report Normal [facility] Basic Metabolic Profile (BMP )on 06-24-2024 BUN/CRE 19.3 RATIO Normal 10-20 [facility] Comment on above: Performed By: #### L 500.2500, L100.0100 ####[facility] [address] [place], [address] CA,Total 9.2 mg/dL Normal 8.5-10.1 [facility] Comment on above: Performed By: #### L 500.2500, L100.0100 ####[facility] [address] [place], [address] Chloride [Moles/Vol] 102 mmol/L Normal 98-107 [facility] Comment on above: Performed By: #### L 500.2500, L100.0100 ####[facility] [address] [place], [address] CO2 [Moles/Vol] 25.0 mmol/L Normal 21.0-32.0 [facility] Comment on above: Performed By: #### L 500.2500, L100.0100 ####[facility] [address] [place], [address] Creatinine [Mass/Vol] 1.09 mg/dL Normal 0.70-1.30 [facility] Comment on above: Result Comment: The validity of the calculated GFR GFRAA in patients over70 years has not been determined. Clinical correlation isessential. Performed By: #### L 500.2500, L100.0100 ####[facility] [address] [place], [address] ECRCL 79.37 ml/min Normal [facility] Comment on above: Performed By: #### L 500.2500, L100.0100 ####[facility] [address] [place], [address] EST GFR - AA 84 mL/min Normal >60 [facility] Comment on above: Result Comment: Afri can Tanzanian GFR Calc Performed By: #### L 500.2500, L100.0100 ####[facility] [address] [place], [address] GAP 9 Normal 5-15 [facility] Comment on above: Performed By: #### L 500.2500, L100.0100 ####[facility] [address] [place], [address] GFR/1.73 sq M.predicted among non-blacks MDRD (S/P/Bld) [Vol rate/Area] 69 mL/min/{1.73_m2} Normal >60 [facility] Comment on above: Result Comment: Non- GFR Calc Performed By: #### L 500.2500, L100.0100 ####[facility] [address] [place], [address] Glucose [Mass/Vol] 56 mg/dL Low 74-106 [facility] Comment on above: Performed By: #### L 500.2500, L100.0100 ####[facility] [address] [place], [address] Potassium [Moles/Vol] 3.5 mmol/L Normal 3.5-5.1 [facility] Comment on above: Performed By: #### L 500.2500, L100.0100 ####[facility] [address] [place], [address] Sodium [Moles/Vol] 136 mmol/L Normal 136-145 [facility] Comment on above: Performed By: #### L 500.2500, L100.0100 ####[facility] [address] [place], [address] Urea nitrogen [Mass/Vol] 21 mg/dL High 7-18 [facility] Comment on above: Performed By: #### L 500.2500, L100.0100 ####[facility] [address] [place], [address] Bedside Glucoseon 06-24-2024 FINGERSTICK GLU 150 mg/dL High 74-106 [facility] Comment on above: Result Comment: URSULA GEMENT OF PATIENT CARE PER NURSING PROTOCOL Performed By: #### L 501.080 ####[facility] [address] [place], [address] FINGERSTICK GLU 84 mg/dL Normal 74-106 [facility] Comment on above: Result Comment: URSULA GEMENT OF PATIENT CARE PER NURSING PROTOCOL Performed By: #### L 501.080 ####[facility] [address] [place], [address] CBC W/Diff, Automatedon 10-0 Absolute Lymph 2.17 X10 3/uL Normal 0.83-4.51 [facility] Comment on above: Performed By: #### L 500.2500, L100.0100 ####[facility] [address] [place], [address] Absolute Neut 6.9 X10 3/uL Normal 2.0-7.7 [facility] Comment on above: Performed By: #### L 500.2500, L100.0100 ####[facility] [address] [place], [address] Basophils/100 WBC (Bld) 0.6 % Normal 0-1 [facility] Comment on above: Performed By: #### L 500.2500, L100.0100 ####[facility] [address] [place], [address] Eosinophils/100 WBC (Bld) 4.6 % Normal 0-5 [facility] Comment on above: Performed By: #### L 500.2500, L100.0100 ####[facility] [address] [place], [address] Erythrocyte distribution width (RBC) [Ratio] 13.7 % Normal 11.6-14.6 [facility] Comment on above: Performed By: #### L 500.2500, L100.0100 ####[facility] [address] [place], [address] Hematocrit (Bld) [Volume fraction] 38.7 % Low 40-54 [facility] Comment on above: Performed By: #### L 500.2500, L100.0100 ####[facility] [address] [place], [address] Hemoglobin (Bld) [Mass/Vol] 12.2 g/dL Low 13.0-16. 5 [facility] Comment on above: Performed By: #### L 500.2500, L100.0100 ####[facility] [address] [place], [address] IG% 0.600 Normal 0.0-0.9 [facility] Comment on above: Result Comment: IG% - Immature Granulocytes (promyelocytes, myelocytes andmetamyelocytes) > 1% indicates that a LEFT SHIFT is Present. Performed By: #### L 500.2500, L100.0100 ####[facility] [address] [place], [address] Lymphocytes/100 WBC (Bld) 19.5 % Normal 19-41 [facility] Comment on above: Performed By: #### L 500.2500, L100.0100 ####[facility] [address] [place], [address] MCH (RBC) [Entitic mass] 26.9 pg Low 27.0-32.0 [facility] Comment on above: Performed By: #### L 500.2500, L100.0100 ####[facility] [address] [place], [address] MCHC (RBC) [Mass/Vol] 31.5 g/dL Low 32-36 [facility] Comment on above: Performed By: #### L 500.2500, L100.0100 ####[facility] [address] [place], [address] MCV (RBC) [Entitic vol] 85.4 fL Normal 80-94 [facility] Comment on above: Performed By: #### L 500.2500, L100.0100 ####[facility] [address] [place], [address] Monocytes/100 WBC (Bld) 12.6 % High 0-10 [facility] Comment on above: Performed By: #### L 500.2500, L100.0100 ####[facility] [address] [place], [address] Neutrophils/100 WBC (Bld) 62.1 % Normal 47-70 [facility] Comment on above: Performed By: #### L 500.2500, L100.0100 ####[facility] [address] [place], [address] Nucleated RBC (Bld) [#/Vol] 0 10*3/uL Normal 0-5 [facility] Comment on above: Performed By: #### L 500.2500, L100.0100 ####[facility] [address] [place], [address] Platelet mean volume (Bld) [Entitic vol] 10.4 fL Normal 6.2-12.0 [facility] Comment on above: Performed By: #### L 500.2500, L100.0100 ####[facility] [address] [place], [address] Platelets (Bld) [#/Vol] 314 10*3/uL Normal 150-450 [facility] Comment on above: Performed By: #### L 500.2500, L100.0100 ####[facility] [address] [place], [address] RBC (Bld) [#/Vol] 4.53 10*6/uL Low 4.6-6.2 [facility] Comment on above: Performed By: #### L 500.2500, L100.0100 ####[facility] [address] [place], [address] RDW SD 42.8 fl Normal 35.1-43.9 [facility] Comment on above: Performed By: #### L 500.2500, L100.0100 ####[facility] [address] [place], [address] WBC (Bld) [#/Vol] 11.1 10*3/uL High 4.4-11.0 [facility] Comment on above: Performed By: #### L 500.2500, L100.0100 ####[facility] [address] [place], [address] Emergency Department Summary on 06-24-2024 Emergency Department Summary Normal [facility] CNOVon 06-23-2024 CNOV Office Visit (SLEWST ) FAISAL ALARCON ([id number]) 1945 M Date Time Provider Department 06/23/24 2:30 PM ABRIL DUVAL During your visit today, we recorded the following information about you: Pulse Respiration Blood pressure Weight 82/minute 18/minute 155/77 136 kg Abril Duval APRN.CNP 06/23/2024 4:46 PM Signed [facility] New Patient Evaluation PATIENT NAME: Faisal Alarcon DATE OF SERVICE: June 22, 2024 CONSULTING PROVIDER: Vikas Travis [address] [facility] [place] [address] REASON FOR CONSULT: Vikas Travis sends the [...] day. Blood-Glucose Meter,Continuous (FREESTYLE MARIELLE 3 READER) [facility] Use to check blood sugar at least four (4) times daily. Uses insulin Blood-Glucose Sensor (FREESTYLE MARIELLE 3 PLUS SENSOR) sayra Apply new sensor every fifteen (15) days to upper arm. colestipol (COLESTID) 1 gram tablet Take 1 tablet (more content not included)... Normal [facility] Ema 06-23-2024 CAESARN Telephone (FAMPWS) FAISAL ALARCON ([id number]) 1945 M Date Time Provider Department 06/23/24 MATHIEU VIRGEN During your visit today, we recorded the following information about you: Kennedi Frey LPN 06/23/2024 2:07 PM Signed ----- Message from Julianna Hood sent at 06/23/2024 1:51 PM EDT ----- Your vitamin D level is very low. Please consider ctra-tgo-matkn vitamin D3-2000 units daily. Your white blood [...] to leave message or call back number. [employer] message sent to pt, asking them to call back for results. JOSE ARMANDO Corrales M Robin, RN 06/24/2024 4:24 PM Signed Daughter returned call and given provider's message below with verbalized understanding. Daughter agreeable. Scheduled lab appt in 1 mth. Allergies As of Date: 06/23/2024 Noted Allergy Reaction AMOXICILLIN 05/11/2005 Comments: generalized erythema Date Reviewed: 06/23/2024 Reviewed by: Abril Duval APRN.CBX OPERATOR - Fully Assessed Reason for Visit: Results [...] mouth every 12 hours. Prescribed by outside supplier engineer - insulin glargine (BASAGLAR KWIKPEN U-100 INSULIN) [...] [J18.9] 09 (more content not included)... Normal [facility] 25(OH)D3 [facility] 2023 25-hydroxyvitamin D3 [Mass/Vol] 15.7 ng/mL Low 31.0-80.0 [facility] Comment on above: Order Comment: Speci men Type: BLOOD SPECIMENOrdering Facility: [facility] Address: [address] [place] [address] Result Comment: Clas sification of 25 [place] Vitamin D status: Deficiency/Insufficiency: < or = 30 ng/ml. Sufficiency/Optimal Levels: 31-80 ng/mL Toxicity: > 100 ng/mL. Test performed by chemiluminescent immunoassay. Performed By: #### 1 989-3 ####[facility] LABCLIA [id number] [place] [address] [place] CBC W Auto Differential pane l (Bld)on 06-20-2024 Basophils (Bld) [#/Vol] 0.06 10*3/uL Normal <0.11 [facility] Comment on above: Order Comment: Speci men Type: BLOOD SPECIMENOrdering Facility: [facility] Address: [address] [place] [address] Performed By: #### 5 7021-8 ####[facility] LABCLIA [id number] [address] [place] Basophils/100 WBC (Bld) 0.5 % Normal [facility] Comment on above: Order Comment: Speci men Type: BLOOD SPECIMENOrdering Facility: [facility] Address: [address] [place] [address] Performed By: #### 5 7021-8 ####[facility] LABCLIA [id number] [place] [address] [place] Differential cell count method Nom (Bld) Auto Normal [facility] Comment on above: Order Comment: Speci men Type: BLOOD SPECIMENOrdering Facility: [facility] Address: [address] [place] [address] Performed By: #### 5 7021-8 ####[facility] LABIA [id number] [place] [address] [place] Eosinophils (Bld) [#/Vol] 0.41 10*3/uL Normal <0.46 [facility] Comment on above: Order Comment: Speci men Type: BLOOD SPECIMENOrdering Facility: [facility] Address: [address] [place] [address] Performed By: #### 5 7021-8 ####[facility] LABCLIA [id number] [place] [address] [place] Eosinophils/100 WBC (Bld) 3.5 % Normal [facility] Comment on above: Order Comment: Speci men Type: BLOOD SPECIMENOrdering Facility: [facility] Address: [address] [place] [address] Performed By: #### 5 7021-8 ####[facility] LABCLIA [id number] [place] [address] [place] Erythrocyte distribution width (RBC) [Ratio] 13.7 % Normal 11.5-15.0 [facility] Comment on above: Order Comment: Speci men Type: BLOOD SPECIMENOrdering Facility: [facility] Address: [address] [place] [address] Performed By: #### 5 7021-8 ####[facility] LABCLIA [id number] [address] [place] Hematocrit (Bld) [Volume fraction] 38.9 % Low 39.0-51.0 [facility] Comment on above: Order Comment: Speci men Type: BLOOD SPECIMENOrdering Facility: [facility] Address: [address] [place] [address] Performed By: #### 5 7021-8 ####[facility] LABCLIA [id number] [place] [address] [place] Hemoglobin (Bld) [Mass/Vol] 12.4 g/dL Low 13.0-17. 0 [facility] Comment on above: Order Comment: Speci men Type: BLOOD SPECIMENOrdering Facility: [facility] Address: [address] [place] [address] Performed By: #### 5 7021-8 ####[facility] LABCLIA [id number] [place] [address] [place] Immature granulocytes (Bld) [#/Vol] 0.05 10*3/uL Normal <0.10 [facility] Comment on above: Order Comment: Speci men Type: BLOOD SPECIMENOrdering Facility: [facility] Address: [address] [place] [address] Performed By: #### 5 7021-8 ####[facility] LABCLIA [id number] [place] [address] [place] Immature granulocytes/100 WBC (Bld) 0.4 % Normal [facility] Comment on above: Order Comment: Speci men Type: BLOOD SPECIMENOrdering Facility: [facility] Address: [address] [place] [address] Performed By: #### 5 7021-8 ####[facility] LABIA [id number] [place] [address] [place] Lymphocytes (Bld) [#/Vol] 1.53 10*3/uL Normal 1.00-4.0 0 [facility] Comment on above: Order Comment: Speci men Type: BLOOD SPECIMENOrdering Facility: [facility] Address: [address] [place] [address] Performed By: #### 5 7021-8 ####[facility] LABCLIA [id number] [place] [address] [place] Lymphocytes/100 WBC (Bld) 13.0 % Normal [facility] Comment on above: Order Comment: Speci men Type: BLOOD SPECIMENOrdering Facility: [facility] Address: [address] [place] [address] Performed By: #### 5 7021-8 ####[facility] LABCLIA [id number] [place] [address] [place] MCH (RBC) [Entitic mass] 27.7 pg Normal 26.0-34.0 [facility] Comment on above: Order Comment: Speci men Type: BLOOD SPECIMENOrdering Facility: [facility] Address: [address] [place] [address] Performed By: #### 5 7021-8 ####[facility] LABCLIA [id number] [place] [address] [place] MCHC (RBC) [Mass/Vol] 31.9 g/dL Normal 30.5-36.0 [facility] Comment on above: Order Comment: Speci men Type: BLOOD SPECIMENOrdering Facility: [facility] Address: [address] [place] [address] Performed By: #### 5 7021-8 ####[facility] LABCLIA [id number] [place] [address] [place] MCV (RBC) [Entitic vol] 86.8 fL Normal 80.0-100.0 [facility] Comment on above: Order Comment: Speci men Type: BLOOD SPECIMENOrdering Facility: [facility] Address: [address] [place] [address] Performed By: #### 5 7021-8 ####[facility] LABCLIA [id number] [place] [address] [place] Monocytes (Bld) [#/Vol] 1.41 10*3/uL High <0.87 [facility] Comment on above: Order Comment: Speci men Type: BLOOD SPECIMENOrdering Facility: [facility] Address: [address] [place] [address] Performed By: #### 5 7021-8 ####[facility] LABCLIA [id number] [place] [address] [place] Monocytes/100 WBC (Bld) 12.0 % Normal [facility] Comment on above: Order Comment: Speci men Type: BLOOD SPECIMENOrdering Facility: [facility] Address: [address] [place] [address] Performed By: #### 5 7021-8 ####[facility] LABCLIA [id number] [place] [address] [place] Neutrophils (Bld) [#/Vol] 8.29 10*3/uL High 1.45-7.5 0 [facility] Comment on above: Order Comment: Speci men Type: BLOOD SPECIMENOrdering Facility: [facility] Address: [address] [place] [address] Performed By: #### 5 7021-8 ####[facility] LABCLIA [id number] [place] [address] [place] Neutrophils/100 WBC (Bld) 70.6 % Normal [facility] Comment on above: Order Comment: Speci men Type: BLOOD SPECIMENOrdering Facility[facility] Address: [address] [place] [address] Performed By: #### 5 7021-8 ####[facility] LABCLIA [id number] [place] [address] [place] Nucleated RBC (Bld) [#/Vol] 10*3/uL Normal <0.01 [facility] Comment on above: Order Comment: Speci men Type: BLOOD SPECIMENOrdering Facility: [facility] Address: [address] [place] [address] Performed By: #### 5 7021-8 ####[facility] LABCLIA [id number] [place] [address] [place] Nucleated RBC/100 WBC (Bld) [Ratio] 0.0 /100 WBC Normal [facility] Comment on above: Order Comment: Speci men Type: BLOOD SPECIMENOrdering Facility: [facility] Address: [address] [place] [address] Performed By: #### 5 7021-8 ####[facility] LABCLIA [id number] [place] [address] [place] Platelet mean volume (Bld) [Entitic vol] 11.1 fL Normal 9.0-12.7 [facility] Comment on above: Order Comment: Speci men Type: BLOOD SPECIMENOrdering Facility: [facility] Address: [address] [place] [address] Performed By: #### 5 7021-8 ####[facility] [id number] [place] [address] [place] Platelets (Bld) [#/Vol] 294 10*3/uL Normal 150-400 [facility] Comment on above: Order Comment: Speci men Type: BLOOD SPECIMENOrdering Facility: [facility] Address: [address] [place] [address] Performed By: #### 5 7021-8 ####[facility] [id number] [place] [address] [place] RBC (Bld) [#/Vol] 4.48 10*6/uL Normal 4.20-6.00 [facility] Comment on above: Order Comment: Speci men Type: BLOOD SPECIMENOrdering Facility: [facility] Address: [address] [place] [address] Performed By: #### 5 7021-8 ####[facility] [id number] [place] [address] [place] WBC (Bld) [#/Vol] 11.75 10*3/uL High 3.70-11.00 [facility] Comment on above: Order Comment: Speci men Type: BLOOD SPECIMENOrdering Facility: [facility] Address: [address] [place] [address] Performed By: #### 5 7021-8 ####[facility] [id number] [place] [address] [place] CK SerPl-cCncon 06-20-2024 CK [Catalytic activity/Vol] 164 U/L Normal 51-298 [facility] Comment on above: Order Comment: Speci men Type: BLOOD SPECIMENOrdering Facility: [facility] Address: [address] [place] [address] Performed By: #### 2 157-6, 3016-3 ####[facility] LABCLIA [id number] KAREN MORRISDESK [id number] [id number] [facility] CNOVon 06-20-2024 CNOV Office Visit (FAMPWS ) FAISAL ALARCON ([id number]) 1945 Date Time Provider Department 06/20/24 3:40 PM [facility] During your visit today, we recorded the [...] Free style marielle script needs sent through [employer] He is wanting us to send [...] mouth every 12 hours. Prescribed by outside supplier engineer No current facility-administered medications for this visit. [...] BX FOR (more content not included)... Normal [facility] TSH SerPl-aCncon 06-20-2024 TSH Qn 1.840 m[IU]/L Normal 0.270-4.200 [facility] Comment on above: Order Comment: Speci men Type: BLOOD SPECIMENOrdering Facility: [facility] Address: [address] [address] Performed By: #### 2 157-6, 3016-3 ####[facility] LABCLIA [id number] JEMIMAAdry AVENUEDESK [id number] VIL[place] [id number] [facility] CNPNon 06-18-2024 CNPN Telephone ([facility] FAISAL ALARCON ([id number]) 1945 M Date Time Provider Department 06/18/24 MATHIEU VIRGEN [facility] During your visit today, we recorded the following information about you: Angelina Bliss RN 06/18/2024 4:31 PM Signed Patient's daughter Farida Beck calling and requesting to speak specifically with PCP nurse, Jaylene. This is in regard to patient's scooter and pt's insurance. Farida [phone]. Thank you. Jaylene Henley LPN 06/20/2024 11:24 AM Signed Patient has visit today. Clinical staff can follow up with daughter at visit. Jaylene Henley LPN 06/25/2024 3:34 PM Signed As of today order for scooter and last OV was faxed to [employer]. Allergies As of Date: 06/18/2024 Noted Allergy Reaction AMOXICILLIN 05/11/2005 Comments: generalized erythema Date Reviewed: 04/12/2024 Reviewed by: Izzy Vargas, NILDA - Fully Assessed Reason for Visit: Patient Question [6257] Prescriptions as of 06/25/2024 - ELIQUIS 5 mg tab(s) Take 1 tablet by mouth two times a day. - Blood-Glucose Meter,Continuous (FREESTYLE MARIELLE 3 READER) [facility] Use to check blood sugar at least [...] times a day before meals. Getting through [facility] - dilTIAZem CD (CARDIZEM [...] mouth every 12 hours. Prescribed by outside supplier engineer - insulin glargine (BASAGLAR KWIKPEN U-100 INSULIN) [...] Diagnosed: 06/06/20 (more content not included)... Normal [facility] 06-17-2024 [facility] Telephone ([facility]) FAISAL ALARCON ([id number]) 1945 M Date Time Provider Department 06/17/24 MATHIEU VIRGEN [facility] During your visit today, we recorded the following information about you: Kennedi Frey LPN 06/17/2024 10:15 AM Signed Received a call from Alison with [employer]. PH: [phone]. She reports receiving information on a scooter. Alison reports this has to go thru pt's [employer] and they will fax all information with details to [facility] for [facility] to be done. I called daughter Farida and she reports they are using [employer] fax:[phone] PH: [phone] Spoke with [employer]ir[employer] and after they received the fax they will go thru it and send forms to be filled out and once those have been returned they will send to [facility] for PA . Information fas been [...] mouth every 12 hours. Prescribed by outside supplier engineer - insulin glargine (BASAGLAR KWIKPEN U-100 INSULIN) [...] dehydration [E (more content not included)... Normal [facility] Comprehensive metabolic 2000 panelon 06-11-2024 Albumin [Mass/Vol] 3.9 g/dL Normal 3.9-4.9 [facility] Comment on above: Order Comment: Speci men Type: BLOOD SPECIMENOrdering Facility: [facility] Address: [address] [place] [address] Performed By: #### 2 4323-8 ####[facility] LABIA [id number] [place] [address] [place] ALP [Catalytic activity/Vol] 81 U/L Normal 38-113 [facility] Comment on above: Order Comment: Speci men Type: BLOOD SPECIMENOrdering Facility: [facility] Address: [address] [place] [address] Performed By: #### 2 4323-8 ####[facility] LABIA [id number] [place] [address] [place] ALT [Catalytic activity/Vol] 23 U/L Normal 10-54 [facility] Comment on above: Order Comment: Speci men Type: BLOOD SPECIMENOrdering Facility: [facility] Address: [address] [place] [address] Performed By: #### 2 4323-8 ####[facility] LABCLIA [id number] [place] [address] [place] Anion gap [Moles/Vol] 15 mmol/L Normal 8-15 [facility] Comment on above: Order Comment: Speci men Type: BLOOD SPECIMENOrdering Facility: [facility] Address: [address] [place] [address] Performed By: #### 2 4323-8 ####[facility] LABCLIA [id number] [place] [address] [place] AST [Catalytic activity/Vol] 26 U/L Normal 14-40 [facility] Comment on above: Order Comment: Speci men Type: BLOOD SPECIMENOrdering Facility: [facility] Address: [address] [place] [address] Performed By: #### 2 4323-8 ####[facility] LABCLIA [id number] [place] [address] [place] Bilirubin [Mass/Vol] mg/dL Low 0.2-1.3 [facility] Comment on above: Order Comment: Speci men Type: BLOOD SPECIMENOrdering Facility: [facility] Address: [address] [place] [address] Performed By: #### 2 4323-8 ####[facility] LABCLIA [id number] [place] [address] [place] Calcium [Mass/Vol] 9.8 mg/dL Normal 8.5-10.2 [facility] Comment on above: Order Comment: Speci men Type: BLOOD SPECIMENOrdering Facility: [facility] Address: [address] [place] [address] Performed By: #### 2 4323-8 ####[facility] LABCLIA [id number] [place] [address] [place] Chloride [Moles/Vol] 98 mmol/L Normal 98-107 [facility] Comment on above: Order Comment: Speci men Type: BLOOD SPECIMENOrdering Facility: [facility] Address: [address] [place] [address] Performed By: #### 2 4323-8 ####[facility] LABCLIA [id number] [place] [id number] [place] CO2 [Moles/Vol] 20 mmol/L Low 22-30 [facility] Comment on above: Order Comment: Speci men Type: BLOOD SPECIMENOrdering Facility: [facility] Address: [address] [place] [address] Performed By: #### 2 4323-8 ####[facility] LABIA [id number] [place] [address] [place] Creatinine [Mass/Vol] 1.19 mg/dL Normal 0.73-1.22 [facility] Comment on above: Order Comment: Speci men Type: BLOOD SPECIMENOrdering Facility: [facility] Address: [address] [place] [address] Performed By: #### 2 4323-8 ####[facility] LABIA [id number] [place] [address] [place] Creatinine and Glomerular filtration rate.predicted panel (S/P/Bld) 62 mL/min/1.73m??? Normal >=60 [facility] Comment on above: Order Comment: Speci men Type: BLOOD SPECIMENOrdering Facility: [facility] Address: [address] [place] [address] Result Comment: Racquel mated Glomerular Filtration Rate [...] actual GFR. Performed By: #### 2 4323-8 ####[facility] LABCLIA [id number] [address] [address] [place] Glucose [Mass/Vol] 169 mg/dL High 74-99 [facility] Comment on above: Order Comment: Speci men Type: BLOOD SPECIMENOrdering Facility: [facility] Address: [address] [place] [address] Result Comment: The [place] Diabetes Association (ADA) provides guidance for cutoff [...] Standards of Medical Care in Diabetes 2016, [place] Diabetes Association. Diabetes Care. 2016.39(Suppl 1). Performed By: #### 2 4323-8 ####[facility] LABCLIA [id number] [place] [address] [place] Potassium [Moles/Vol] 4.8 mmol/L Normal 3.7-5.1 [facility] Comment on above: Order Comment: Speci men Type: BLOOD SPECIMENOrdering Facility: [facility] Address: [address] [place] [address] Performed By: #### 2 4323-8 ####[facility] LABCLIA [id number] [place] [id number] [place] Protein [Mass/Vol] 7.4 g/dL Normal 6.3-8.0 [facility] Comment on above: Order Comment: Speci men Type: BLOOD SPECIMENOrdering Facility: [facility] Address: [address] [place] [address] Performed By: #### 2 4323-8 ####[facility] LABCLIA [id number] [place] [address] [place] Sodium [Moles/Vol] 133 mmol/L Low 136-144 [facility] Comment on above: Order Comment: Kayyi men Type: BLOOD SPECIMENOrdering Facility: [facility] Address: [address] [place] [address] Performed By: #### 2 4323-8 ####[facility] LABIA [id number] [place] [address] [place] Urea nitrogen [Mass/Vol] 28 mg/dL High 9-24 [facility] Comment on above: Order Comment: Kayyi men Type: BLOOD SPECIMENOrdering Facility: [facility] Address: [address] [place] [address] Performed By: #### 2 4323-8 ####[facility] [id number] [place] [address] [place] HbA1c (Bld)on 06-11-2024 Average glucose Estimated from glycated hemoglobin (Bld) [Mass/Vol] 166 mg/dL Normal [facility] Comment on above: Order Comment: Kayyi men Type: BLOOD SPECIMENOrdering Facility: [facility] Address: [address] [place] [address] Result Comment: eAG: (Estimated average glucose) is a calculated value from HgbA1c and is charter representative of the average blood glucose level in the last 2-3 month period. Performed By: #### 5 5454-3 ####[facility] [id number] [place] [address] [place] HbA1c (Bld) [Mass fraction] 7.4 % High 4.3-5.6 [facility] Comment on above: Order Comment: Salvatore de la rosa Type: BLOOD SPECIMENOrdering Facility: [facility] Address: [address] [place] [address] Result Comment: [place] Diabetes Association guidelines indicate that patients with HgbA1c in the range 5.7-6.4% are at increased risk for development of diabetes, and intervention by lifestyle modification may be beneficial. HgbA1c greater or equal to 6.5% is considered diagnostic of diabetes. Performed By: #### 5 5454-3 ####[facility] LABCLIA [id number] KAREN [facility] [id number] [address] [place] 12 Lead EKGon 06-08-2024 12 Lead EKG Normal [facility] Basic Metabolic Profile (BMP )on 06-08-2024 BUN/CRE 21.8 RATIO High 10-20 [facility] Comment on above: Order Comment: 1Y Performed By: #### L 501.5425, L100.0100, L500.2500 ####[facility] [address] [place], [address] CA,Total 9.6 mg/dL Normal 8.5-10.1 [facility] Comment on above: Order Comment: 1Y Performed By: #### L 501.5425, L100.0100, L500.2500 ####[facility] [address] [place], [address] Chloride [Moles/Vol] 99 mmol/L Normal 98-107 [facility] Comment on above: Order Comment: 1Y Performed By: #### L 501.5425, L100.0100, L500.2500 ####[facility] [address] [place], [address] CO2 [Moles/Vol] 30.0 mmol/L Normal 21.0-32.0 [facility] Comment on above: Order Comment: 1Y Performed By: #### L 501.5425, L100.0100, L500.2500 ####[facility] [address] [place], [address] Creatinine [Mass/Vol] 1.24 mg/dL Normal 0.70-1.30 [facility] Comment on above: Order Comment: 1Y Result Comment: The validity of the calculated GFR GFRAA in patients over70 years has not been determined. Clinical correlation isessential. Performed By: #### L 501.5425, L100.0100, L500.2500 ####[facility] [address] [place], [address] ECRCL 68.78 ml/min Normal [facility] Comment on above: Order Comment: 1Y Performed By: #### L 501.5425, L100.0100, L500.2500 ####[facility] [address] [place], [address] EST GFR - AA 72 mL/min Normal >60 [facility] Comment on above: Order Comment: 1Y Result Comment: Afri can [place] GFR Calc Performed By: #### L 501.5425, L100.0100, L500.2500 ####[facility] [address] [place], [address] GAP 5 Normal 5-15 [facility] Comment on above: Order Comment: 1Y Performed By: #### L 501.5425, L100.0100, L500.2500 ####[facility] [address] [place], [address] GFR/1.73 sq M.predicted among non-blacks MDRD (S/P/Bld) [Vol rate/Area] 60 mL/min/{1.73_m2} Normal >60 [facility] Comment on above: Order Comment: 1Y Result Comment: Non- GFR Calc Performed By: #### L 501.5425, L100.0100, L500.2500 ####[facility] [address] [place], [address] Glucose [Mass/Vol] 128 mg/dL High 74-106 [facility] Comment on above: Order Comment: 1Y Result Comment: Fast ing Glucose result greater than or equal to 126 mg/dLsuggests DIABETES MELLITUS per A.D.A. criteria. Performed By: #### L 501.5425, L100.0100, L500.2500 ####[facility] [address] [place], [address] Potassium [Moles/Vol] 4.2 mmol/L Normal 3.5-5.1 [facility] Comment on above: Order Comment: 1Y Performed By: #### L 501.5425, L100.0100, L500.2500 ####[facility] [address] [place], [address] Sodium [Moles/Vol] 134 mmol/L Low 136-145 [facility] Comment on above: Order Comment: 1Y Performed By: #### L 501.5425, L100.0100, L500.2500 ####[facility] [address] [place], [address] Urea nitrogen [Mass/Vol] 27 mg/dL High 7-18 [facility] Comment on above: Order Comment: 1Y Performed By: #### L 501.5425, L100.0100, L500.2500 ####[facility] [address] [place], [address] CBC W/Diff, Automatedon 05-19 Absolute Lymph 1.75 X10 3/uL Normal 0.83-4.51 [facility] Comment on above: Performed By: #### L 501.5425, L100.0100, L500.2500 ####[facility] [address] [place], [address] Absolute Neut 7.3 X10 3/uL Normal 2.0-7.7 [facility] Comment on above: Performed By: #### L 501.5425, L100.0100, L500.2500 ####[facility] [address] [place], [address] Basophils/100 WBC (Bld) 0.4 % Normal 0-1 [facility] Comment on above: Performed By: #### L 501.5425, L100.0100, L500.2500 ####[facility] [address] [place], [address] Eosinophils/100 WBC (Bld) 4.5 % Normal 0-5 [facility] Comment on above: Performed By: #### L 501.5425, L100.0100, L500.2500 ####[facility] [address] [place], [address] Erythrocyte distribution width (RBC) [Ratio] 13.2 % Normal 11.6-14.6 [facility] Comment on above: Performed By: #### L 501.5425, L100.0100, L500.2500 ####[facility] [address] [place], [address] Hematocrit (Bld) [Volume fraction] 40.6 % Normal 40-54 [facility] Comment on above: Performed By: #### L 501.5425, L100.0100, L500.2500 ####[facility] [address] [place], [address] Hemoglobin (Bld) [Mass/Vol] 13.0 g/dL Normal 13.0-16. 5 [facility] Comment on above: Performed By: #### L 501.5425, L100.0100, L500.2500 ####[facility] [address] [place], [address] IG% 0.800 Normal 0.0-0.9 [facility] Comment on above: Result Comment: IG% - Immature Granulocytes (promyelocytes, myelocytes andmetamyelocytes) > 1% indicates that a LEFT SHIFT is Present. Performed By: #### L 501.5425, L100.0100, L500.2500 ####[facility] [address] [place], [address] Lymphocytes/100 WBC (Bld) 15.9 % Low 19-41 [facility] Comment on above: Performed By: #### L 501.5425, L100.0100, L500.2500 ####[facility] [address] [place], [address] MCH (RBC) [Entitic mass] 27.3 pg Normal 27.0-32.0 [facility] Comment on above: Performed By: #### L 501.5425, L100.0100, L500.2500 ####[facility] [address] [place], [address] MCHC (RBC) [Mass/Vol] 32.0 g/dL Normal 32-36 [facility] Comment on above: Performed By: #### L 501.5425, L100.0100, L500.2500 ####[facility] [address] [place], [address] MCV (RBC) [Entitic vol] 85.1 fL Normal 80-94 [facility] Comment on above: Performed By: #### L 501.5425, L100.0100, L500.2500 ####[facility] [address] [place], [address] Monocytes/100 WBC (Bld) 12.4 % High 0-10 [facility] Comment on above: Performed By: #### L 501.5425, L100.0100, L500.2500 ####[facility] [address] [place], [address] Neutrophils/100 WBC (Bld) 66.0 % Normal 47-70 [facility] Comment on above: Performed By: #### L 501.5425, L100.0100, L500.2500 ####[facility] [address] [place], [address] Nucleated RBC (Bld) [#/Vol] 0 10*3/uL Normal 0-5 [facility] Comment on above: Performed By: #### L 501.5425, L100.0100, L500.2500 ####[facility] [address] [place], [address] Platelet mean volume (Bld) [Entitic vol] 10.8 fL Normal 6.2-12.0 [facility] Comment on above: Performed By: #### L 501.5425, L100.0100, L500.2500 ####[facility] [address] [place], [address] Platelets (Bld) [#/Vol] 323 10*3/uL Normal 150-450 [facility] Comment on above: Performed By: #### L 501.5425, L100.0100, L500.2500 ####[facility] [address] [place], [address] RBC (Bld) [#/Vol] 4.77 10*6/uL Normal 4.6-6.2 [facility] Comment on above: Performed By: #### L 501.5425, L100.0100, L500.2500 ####[facility] [address] [place], [address] RDW SD 40.9 fl Normal 35.1-43.9 [facility] Comment on above: Performed By: #### L 501.5425, L100.0100, L500.2500 ####[facility] [address] [place], [address] WBC (Bld) [#/Vol] 11.0 10*3/uL Normal 4.4-11.0 [facility] Comment on above: Performed By: #### L 501.5425, L100.0100, L500.2500 ####[facility] [address] [place], [address] Chest 1 View (Portable)on Chest 1 View (Portable) Normal [facility] Emergency Department Summary on 06-08-2024 Emergency Department Summary Normal [facility] L501.4020on 06-08-2024 TROPONIN-I HS 7 pg/mL Normal 3.0-78.0 [facility] Comment on above: Result Comment: Plea se Note: New Test Units and Gender Specific Reference Ranges. For more information see Policy Stat Procedure [place] High Sensitivity Troponin (TNIH) and attachments. Performed By: #### L 501.4020 ####[facility] [address] [place], [address] L501.5425on 06-08-2024 TROPONIN-I HS 6 pg/mL Normal 3.0-78.0 [facility] Comment on above: Order Comment: 1Y Result Comment: Plea se Note: New Test Units and Gender Specific Reference Ranges. For more information see Policy Stat Procedure [place] High Sensitivity Troponin (TNIH) and attachments. Performed By: #### L 501.5425, L100.0100, L500.2500 ####[facility] [address] [place], [address] Urine Cultureon 06-01-2024 URC Culture exhibits no growth. Normal [facility] Comment on above: Performed By: #### M 100.2200 ####[facility] [address] [place], [address] 12 Lead EKGon 05-31-2024 12 Lead EKG Normal [facility] CBC W/Diff, Automatedon 05-18 Absolute Lymph 1.65 X10 3/uL Normal 0.83-4.51 [facility] Comment on above: Performed By: #### L 500.4050, L501.4020, L100.0100 ####[facility] [address] [place], [address] Absolute Neut 8.4 X10 3/uL High 2.0-7.7 [facility] Comment on above: Performed By: #### L 500.4050, L501.4020, L100.0100 ####[facility] [address] [place], [address] Basophils/100 WBC (Bld) 0.4 % Normal 0-1 [facility] Comment on above: Performed By: #### L 500.4050, L501.4020, L100.0100 ####[facility] [address] [place], [address] Eosinophils/100 WBC (Bld) 3.5 % Normal 0-5 [facility] Comment on above: Performed By: #### L 500.4050, L501.4020, L100.0100 ####[facility] [address] [place], [address] Erythrocyte distribution width (RBC) [Ratio] 13.1 % Normal 11.6-14.6 [facility] Comment on above: Performed By: #### L 500.4050, L501.4020, L100.0100 ####[facility] [address] [place], [address] Hematocrit (Bld) [Volume fraction] 40.0 % Normal 40-54 [facility] Comment on above: Performed By: #### L 500.4050, L501.4020, L100.0100 ####[facility] [address] [place], [address] Hemoglobin (Bld) [Mass/Vol] 12.8 g/dL Low 13.0-16. 5 [facility] Comment on above: Performed By: #### L 500.4050, L501.4020, L100.0100 ####[facility] [address] [place], [address] IG% 0.300 Normal 0.0-0.9 [facility] Comment on above: Result Comment: IG% - Immature Granulocytes (promyelocytes, myelocytes andmetamyelocytes) > 1% indicates that a LEFT SHIFT is Present. Performed By: #### L 500.4050, L501.4020, L100.0100 ####[facility] [address] [place], [address] Lymphocytes/100 WBC (Bld) 14.1 % Low 19-41 [facility] Comment on above: Performed By: #### L 500.4050, L501.4020, L100.0100 ####[facility] [address] [place], [address] MCH (RBC) [Entitic mass] 27.1 pg Normal 27.0-32.0 [facility] Comment on above: Performed By: #### L 500.4050, L501.4020, L100.0100 ####[facility] [address] [place], [address] MCHC (RBC) [Mass/Vol] 32.0 g/dL Normal 32-36 [facility] Comment on above: Performed By: #### L 500.4050, L501.4020, L100.0100 ####[facility] [address] [place], [address] MCV (RBC) [Entitic vol] 84.6 fL Normal 80-94 [facility] Comment on above: Performed By: #### L 500.4050, L501.4020, L100.0100 ####[facility] [address] [place], [address] Monocytes/100 WBC (Bld) 10.3 % High 0-10 [facility] Comment on above: Performed By: #### L 500.4050, L501.4020, L100.0100 ####[facility] [address] [place], [address] Neutrophils/100 WBC (Bld) 71.4 % High 47-70 [facility] Comment on above: Performed By: #### L 500.4050, L501.4020, L100.0100 ####[facility] [address] [place], [address] Nucleated RBC (Bld) [#/Vol] 0 10*3/uL Normal 0-5 [facility] Comment on above: Performed By: #### L 500.4050, L501.4020, L100.0100 ####[facility] [address] [place], [address] Platelet mean volume (Bld) [Entitic vol] 10.5 fL Normal 6.2-12.0 [facility] Comment on above: Performed By: #### L 500.4050, L501.4020, L100.0100 ####[facility] [address] [place], [address] Platelets (Bld) [#/Vol] 301 10*3/uL Normal 150-450 [facility] Comment on above: Performed By: #### L 500.4050, L501.4020, L100.0100 ####[facility] [address] [place], [address] RBC (Bld) [#/Vol] 4.73 10*6/uL Normal 4.6-6.2 [facility] Comment on above: Performed By: #### L 500.4050, L501.4020, L100.0100 ####[facility] [address] [place], [address] RDW SD 40.3 fl Normal 35.1-43.9 [facility] Comment on above: Performed By: #### L 500.4050, L501.4020, L100.0100 ####[facility] [address] [place], [address] WBC (Bld) [#/Vol] 11.7 10*3/uL High 4.4-11.0 [facility] Comment on above: Performed By: #### L 500.4050, L501.4020, L100.0100 ####[facility] [address] [place], [address] CNOVon 05-31-2024 CNOV Office Visit (UCWSTR ) FAISAL ALARCON ([id number]) 1945 M Date Time Provider Department 05/31/24 9:00 AM [facility] During your visit today, we recorded the following information about you: Amairani Mcclendon APRN.CBX OPERATOR 05/31/2024 8:58 AM Signed Patient came in [...] times a day before meals. Getting through [facility] - dilTIAZem CD (CARDIZEM [...] mouth every 12 hours. Prescribed by outside supplier engineer - colestipol (COLESTID) 1 gram tablet Take [...] Diagnosed: 06/06/2023 (more content not included)... Normal [facility] Chest 1 View (Portable)on Chest 1 View (Portable) Normal W [facility] Comprehensive Metabolic Prof ilon 05-31-2024 Albumin [Mass/Vol] 3.3 g/dL Normal 3.2-5.0 [facility] Comment on above: Order Comment: 'TROP ' Serial specimen #1, #2 or #3: 1 Performed By: #### L 500.4050, L501.4020, L100.0100 ####[facility] [address] [place], [address] Albumin/Globulin [Mass ratio] 0.8 {ratio} Low 0.9-2.4 [facility] Comment on above: Order Comment: 'TROP ' Serial specimen #1, #2 or #3: 1 Performed By: #### L 500.4050, L501.4020, L100.0100 ####[facility] [address] [place], [address] ALK P 92 U/L Normal 45-117 [facility] Comment on above: Order Comment: 'TROP ' Serial specimen #1, #2 or #3: 1 Performed By: #### L 500.4050, L501.4020, L100.0100 ####[facility] [address] [place], [address] ALT [Catalytic activity/Vol] 23 U/L Normal 16-61 [facility] Comment on above: Order Comment: 'TROP ' Serial specimen #1, #2 or #3: 1 Performed By: #### L 500.4050, L501.4020, L100.0100 ####[facility] [address] [place], [address] AST [Catalytic activity/Vol] 15 U/L Normal 15-37 [facility] Comment on above: Order Comment: 'TROP ' Serial specimen #1, #2 or #3: 1 Performed By: #### L 500.4050, L501.4020, L100.0100 ####[facility] [address] [place], [address] Bilirubin [Mass/Vol] 0.30 mg/dL Normal 0.20-1.00 [facility] Comment on above: Order Comment: 'TROP ' Serial specimen #1, #2 or #3: 1 Result Comment: For patients on eltrombopag therapy, use of Dimension [place] TBIL is not recommended. Performed By: #### L 500.4050, L501.4020, L100.0100 ####[facility] [address] [place], [address] BUN/CRE 18.0 RATIO Normal 10-20 [facility] Comment on above: Order Comment: 'TROP ' Serial specimen #1, #2 or #3: 1 Performed By: #### L 500.4050, L501.4020, L100.0100 ####[facility] [address] [place], [address] CA,Total 9.9 mg/dL Normal 8.5-10.1 [facility] Comment on above: Order Comment: 'TROP ' Serial specimen #1, #2 or #3: 1 Performed By: #### L 500.4050, L501.4020, L100.0100 ####[facility] [address] [place], [address] Chloride [Moles/Vol] 97 mmol/L Low 98-107 [facility] Comment on above: Order Comment: 'TROP ' Serial specimen #1, #2 or #3: 1 Performed By: #### L 500.4050, L501.4020, L100.0100 ####[facility] [address] [place], [address] CO2 [Moles/Vol] 25.0 mmol/L Normal 21.0-32.0 [facility] Comment on above: Order Comment: 'TROP ' Serial specimen #1, #2 or #3: 1 Performed By: #### L 500.4050, L501.4020, L100.0100 ####[facility] [address] [place], [address] Creatinine [Mass/Vol] 1.33 mg/dL High 0.70-1.30 [facility] Comment on above: Order Comment: 'TROP ' Serial specimen #1, #2 or #3: 1 Result Comment: The validity of the calculated GFR GFRAA in patients over70 years has not been determined. Clinical correlation isessential. Performed By: #### L 500.4050, L501.4020, L100.0100 ####[facility] [address] [place], [address] ECRCL 63.90 ml/min Normal [facility] Comment on above: Order Comment: 'TROP ' Serial specimen #1, #2 or #3: 1 Performed By: #### L 500.4050, L501.4020, L100.0100 ####[facility] [address] [place], [address] EST GFR - AA 67 mL/min Normal >60 [facility] Comment on above: Order Comment: 'TROP ' Serial specimen #1, #2 or #3: 1 Result Comment: Afri can [place] GFR Calc Performed By: #### L 500.4050, L501.4020, L100.0100 ####[facility] [address] [place], [address] GAP 9 Normal 5-15 [facility] Comment on above: Order Comment: 'TROP ' Serial specimen #1, #2 or #3: 1 Performed By: #### L 500.4050, L501.4020, L100.0100 ####[facility] [address] [place], [address] GFR/1.73 sq M.predicted among non-blacks MDRD (S/P/Bld) [Vol rate/Area] 55 mL/min/{1.73_m2} Low >60 [facility] Comment on above: Order Comment: 'TROP ' Serial specimen #1, #2 or #3: 1 Result Comment: Non- GFR Calc Performed By: #### L 500.4050, L501.4020, L100.0100 ####[facility] [address] [place], [address] Globulin (S) [Mass/Vol] 4.2 g/dL Normal 2.2-4.2 [facility] Comment on above: Order Comment: 'TROP ' Serial specimen #1, #2 or #3: 1 Performed By: #### L 500.4050, L501.4020, L100.0100 ####[facility] [address] [place], [address] Glucose [Mass/Vol] 201 mg/dL High 74-106 [facility] Comment on above: Order Comment: 'TROP ' Serial specimen #1, #2 or #3: 1 Result Comment: Gluc ose result greater than or equal to 200 mg/dLsuggests DIABETES MELLITUS per A.D.A. criteria. Performed By: #### L 500.4050, L501.4020, L100.0100 ####[facility] [address] [place], [address] Potassium [Moles/Vol] 4.3 mmol/L Normal 3.5-5.1 [facility] Comment on above: Order Comment: 'TROP ' Serial specimen #1, #2 or #3: 1 Performed By: #### L 500.4050, L501.4020, L100.0100 ####[facility] [address] [place], [address] Sodium [Moles/Vol] 131 mmol/L Low 136-145 [facility] Comment on above: Order Comment: 'TROP ' Serial specimen #1, #2 or #3: 1 Performed By: #### L 500.4050, L501.4020, L100.0100 ####[facility] [address] [place], [address] T PROT 7.5 g/dL Normal 6.4-8.2 [facility] Comment on above: Order Comment: 'TROP ' Serial specimen #1, #2 or #3: 1 Performed By: #### L 500.4050, L501.4020, L100.0100 ####[facility] [address] [place], [address] Urea nitrogen [Mass/Vol] 24 mg/dL High 7-18 [facility] Comment on above: Order Comment: 'TROP ' Serial specimen #1, #2 or #3: 1 Performed By: #### L 500.4050, L501.4020, L100.0100 ####[facility] [address] [place], [address] Emergency Department Summary on 05-31-2024 Emergency Department Summary Normal [facility] L501.4020on 05-31-2024 TROPONIN-I HS 7 pg/mL Normal 3.0-78.0 [facility] Comment on above: Order Comment: 'TROP ' Serial specimen #1, #2 or #3: 1 Result Comment: Plea se Note: New Test Units and Gender Specific Reference Ranges. For more information see Policy Stat Procedure [employer] High Sensitivity Troponin (TNIH) and attachments. Performed By: #### L 500.4050, L501.4020, L100.0100 ####[facility] [address] [place], [address] M100.678on 05-31-2024 M100.678 Pending SARS-CoV-2 (COVID 19) Negative INFLUENZA A Negative INFLUENZA B Negative RSV PCR Negative Normal [facility] Comment on above: Performed By: #### M 100.678 ####[facility] [address] [place], [address] Urinalysis, Completeon 05-31 BACTERIA 1+ /hpf Normal None Seen [facility] Comment on above: Order Comment: GO CTOR TO SPECIFY Performed By: #### L 400.0001 ####[facility] [address] [place], [address] RBC 5-10 SEEN Normal 0-5 [facility] Comment on above: Order Comment: GO CTOR TO SPECIFY Performed By: #### L 400.0001 ####[facility] [address] [place], [address] WBC 50-100 SEEN Normal 0-5 [facility] Comment on above: Order Comment: GO CTOR TO SPECIFY Performed By: #### L 400.0001 ####[facility] [address] [place], [address] EPI,SQUAMOUS 0 SEEN Normal 0-5 [facility] Comment on above: Order Comment: GO CTOR TO SPECIFY Performed By: #### L 400.0001 ####[facility] [address] [place], [address] Mucus Ql (Urine sed) 0 SEEN Normal [facility] Comment on above: Order Comment: GO CTOR TO SPECIFY Performed By: #### L 400.0001 ####[facility] [address] [place], [address] HBA1C (OUTSIDE)on 05-07-2024 HbA1c (Bld) [Mass fraction] 7.2 % [facility] Basic metabolic 2000 panelon 04-12-2024 Anion gap [Moles/Vol] 14 mmol/L Normal 8-15 [facility] Comment on above: Order Comment: Speci men Type: BLOOD SPECIMEN Ordering Facility: [facility] Address: [address] [place] [address] Performed By: #### 2 4321-2 #### [facility] CLIA [id number] [address] [place] [address] [place] Calcium [Mass/Vol] 9.6 mg/dL Normal 8.5-10.2 [facility] Comment on above: Order Comment: Speci men Type: BLOOD SPECIMEN Ordering Facility: [facility] Address: [facility] [place] [address] Performed By: #### 2 4321-2 #### [facility] CLIA [id number] [address] [place] Chloride [Moles/Vol] 97 mmol/L Low 98-107 [facility] Comment on above: Order Comment: Speci men Type: BLOOD SPECIMEN Ordering Facility: [facility] Address: [address] [place] [address] Performed By: #### 2 4321-2 #### [facility] CLIA [id number] [address] [place] CO2 [Moles/Vol] 22 mmol/L Normal 22-30 [facility] Comment on above: Order Comment: Speci men Type: BLOOD SPECIMEN Ordering Facility: [facility] Address: [address] [place] [address] Performed By: #### 2 4321-2 #### [facility] CLIA [id number] [address] [place] Creatinine [Mass/Vol] 1.10 mg/dL Normal 0.73-1.22 [facility] Comment on above: Order Comment: Speci men Type: BLOOD SPECIMEN Ordering Facility: [facility] Address: [address] [place] [address] Performed By: #### 2 4321-2 #### [facility] CLIA [id number] [address] [place] Creatinine and Glomerular filtration rate.predicted panel (S/P/Bld) 68 mL/min/1.73m??? Normal >=60 [facility] Comment on above: Order Comment: Speci men Type: BLOOD SPECIMEN Ordering Facility: [facility] Address: [address] [place] [address] Result Comment: Racquel mated Glomerular Filtration Rate [...] GFR. Performed By: #### 2 4321-2 #### [facility] CLIA [id number] 1 [place] [address] [place] Glucose [Mass/Vol] 199 mg/dL High 74-99 [facility] Comment on above: Order Comment: Salvatore de la rosa Type: BLOOD SPECIMEN Ordering Facility: [facility] Address: [address] [place] [address] Result Comment: The [place] Diabetes Association (ADA) provides guidance for cutoff [...] Standards of Medical Care in Diabetes 2016, [place] [employer] Association. Diabetes Care. 2016.39(Suppl 1). Performed By: #### 2 4321-2 #### [facility] CLIA [id number] 1 [place] [address] [place] Potassium [Moles/Vol] 4.2 mmol/L Normal 3.7-5.1 [facility] Comment on above: Order Comment: Salvatore de la rosa Type: BLOOD SPECIMEN Ordering Facility: [facility] Address: [address] [id number] Performed By: #### 2 4321-2 #### [facility] CLIA [id number] [address] [place] [address] [place] Sodium [Moles/Vol] 133 mmol/L Low 136-144 [facility] Comment on above: Order Comment: Salvatore de la rosa Type: BLOOD SPECIMEN Ordering Facility: [facility] Address: [address] [place] [address] Performed By: #### 2 4321-2 #### [facility] CLIA [id number] [address] Urea nitrogen [Mass/Vol] 27 mg/dL High 9-24 [facility] Comment on above: Order Comment: Speci men Type: BLOOD SPECIMEN Ordering Facility: [facility] Address: [address] [place] [address] Performed By: #### 2 4321-2 #### [facility] CLIA [id number] [address] CBC W Auto Differential pane l (Bld)on 04-12-2024 Basophils (Bld) [#/Vol] 0.06 10*3/uL Normal <0.11 [facility] Comment on above: Order Comment: Speci men Type: BLOOD SPECIMEN Ordering Facility: [facility] Address: [address] [place] [address] Performed By: #### 5 7021-8 #### [facility] CLIA [id number] [address] Basophils/100 WBC (Bld) 0.5 % Normal A [facility] Comment on above: Order Comment: Speci men Type: BLOOD SPECIMEN Ordering Facility: [facility] Address: [address] [place] [address] Performed By: #### 5 7021-8 #### [facility] CLIA [id number] [address] Differential cell count method Nom (Bld) Auto Normal [facility] Comment on above: Order Comment: Speci men Type: BLOOD SPECIMEN Ordering Facility: [facility] Address: [address] [place] [address] Performed By: #### 5 7021-8 #### [facility] CLIA [id number] [address] [place] Eosinophils (Bld) [#/Vol] 0.39 10*3/uL Normal <0.46 [facility] Comment on above: Order Comment: Speci men Type: BLOOD SPECIMEN Ordering Facility: [facility] Address: [address] [place] [address] Performed By: #### 5 7021-8 #### [facility] CLIA [id number] [address] [place] Eosinophils/100 WBC (Bld) 3.2 % Normal [facility] Comment on above: Order Comment: Speci men Type: BLOOD SPECIMEN Ordering Facility: [facility] Address: [address] [place] [address] Performed By: #### 5 7021-8 #### [facility] CLIA [id number] [address] [place] Erythrocyte distribution width (RBC) [Ratio] 13.3 % Normal 11.5-15.0 [facility] Comment on above: Order Comment: Speci men Type: BLOOD SPECIMEN Ordering Facility: [facility] Address: [address] [place] [address] Performed By: #### 5 7021-8 #### [facility] CLIA [id number] [address] [place] Hematocrit (Bld) [Volume fraction] 40.6 % Normal 39.0-51.0 [facility] Comment on above: Order Comment: Speci men Type: BLOOD SPECIMEN Ordering Facility: [facility] Address: [address] [place] [address] Performed By: #### 5 7021-8 #### [facility] CLIA [id number] [address] [place] Hemoglobin (Bld) [Mass/Vol] 13.4 g/dL Normal 13.0-17. 0 [facility] Comment on above: Order Comment: Speci men Type: BLOOD SPECIMEN Ordering Facility: [facility] Address: [address] [place] [address] Performed By: #### 5 7021-8 #### [facility] CLIA [id number] [address] [place] Immature granulocytes (Bld) [#/Vol] 0.05 10*3/uL Normal <0.10 [facility] Comment on above: Order Comment: Speci men Type: BLOOD SPECIMEN Ordering Facility: [facility] Address: [facility] [place] [address] Performed By: #### 5 7021-8 #### [facility] CLIA [id number] [address] Immature granulocytes/100 WBC (Bld) 0.4 % Normal [facility] Comment on above: Order Comment: Speci men Type: BLOOD SPECIMEN Ordering Facility: [facility] Address: [address] [place] [address] Performed By: #### 5 7021-8 #### [facility] CLIA [id number] [address] OF [facility] Lymphocytes (Bld) [#/Vol] 2.34 10*3/uL Normal 1.00-4.0 0 [facility] Comment on above: Order Comment: Speci men Type: BLOOD SPECIMEN Ordering Facility: [facility] Address: [address] [place] [address] Performed By: #### 5 7021-8 #### [facility] CLIA [id number] [address] Lymphocytes/100 WBC (Bld) 19.1 % Normal [facility] Comment on above: Order Comment: Speci men Type: BLOOD SPECIMEN Ordering Facility: [facility] Address: [address] [place] [address] Performed By: #### 5 7021-8 #### [facility] CLIA [id number] [address] [place] MCH (RBC) [Entitic mass] 28.4 pg Normal 26.0-34.0 [facility] Comment on above: Order Comment: Speci men Type: BLOOD SPECIMEN Ordering Facility: [facility] Address: [address] [place] [address] Performed By: #### 5 7021-8 #### [facility] CLIA [id number] [address] OF [facility] MCHC (RBC) [Mass/Vol] 33.0 g/dL Normal 30.5-36.0 [facility] Comment on above: Order Comment: Speci men Type: BLOOD SPECIMEN Ordering Facility: [facility] Address: [address] [place] [address] Performed By: #### 5 7021-8 #### [facility] CLIA [id number] [address] [place] MCV (RBC) [Entitic vol] 86.0 fL Normal 80.0-100.0 [facility] Comment on above: Order Comment: Speci men Type: BLOOD SPECIMEN Ordering Facility: [facility] Address: [address] [place] [address] Performed By: #### 5 7021-8 #### [facility] CLIA [id number] [address] Monocytes (Bld) [#/Vol] 1.38 10*3/uL High <0.87 [facility] Comment on above: Order Comment: Speci men Type: BLOOD SPECIMEN Ordering Facility: [facility] Address: [address] [place] [address] Performed By: #### 5 7021-8 #### [facility] CLIA [id number] [address] Monocytes/100 WBC (Bld) 11.3 % Normal [facility] Comment on above: Order Comment: Speci men Type: BLOOD SPECIMEN Ordering Facility: [facility] Address: [address] [place] [address] Performed By: #### 5 7021-8 #### [facility] CLIA [id number] [address] [place] Neutrophils (Bld) [#/Vol] 8.02 10*3/uL High 1.45-7.5 0 [facility] Comment on above: Order Comment: Speci men Type: BLOOD SPECIMEN Ordering Facility: [facility] Address: [address] [place] [address] Performed By: #### 5 7021-8 #### [facility] CLIA [id number] [address] Neutrophils/100 WBC (Bld) 65.5 % Normal [facility] Comment on above: Order Comment: Speci men Type: BLOOD SPECIMEN Ordering Facility: [facility] Address: [address] [place] [address] Performed By: #### 5 7021-8 #### [facility] CLIA [id number] [address] [place] Nucleated RBC (Bld) [#/Vol] 10*3/uL Normal <0.01 [facility] Comment on above: Order Comment: Speci men Type: BLOOD SPECIMEN Ordering Facility: [facility] Address: [address] [place] [address] Performed By: #### 5 7021-8 #### [facility] CLIA [id number] [address] Nucleated RBC/100 WBC (Bld) [Ratio] 0.0 /100 WBC Normal [facility] Comment on above: Order Comment: Speci men Type: BLOOD SPECIMEN Ordering Facility: [facility] Address: [address] [place] [address] Performed By: #### 5 7021-8 #### [facility] CLIA [id number] [address] Platelet mean volume (Bld) [Entitic vol] 10.7 fL Normal 9.0-12.7 [facility] Comment on above: Order Comment: Speci men Type: BLOOD SPECIMEN Ordering Facility: [facility] Address: [address] [place] [address] Performed By: #### 5 7021-8 #### [facility] CLIA [id number] [address] [place] Platelets (Bld) [#/Vol] 268 10*3/uL Normal 150-400 [facility] Comment on above: Order Comment: Speci men Type: BLOOD SPECIMEN Ordering Facility: [facility] Address: [address] [place] [id number] Performed By: #### 5 7021-8 #### [facility] CLIA [id number] [address] OF [facility] RBC (Bld) [#/Vol] 4.72 10*6/uL Normal 4.20-6.00 [facility] Comment on above: Order Comment: Speci men Type: BLOOD SPECIMEN Ordering Facility: [facility] Address: [address] [place] [address] Performed By: #### 5 7021-8 #### [facility] CLIA [id number] [address] WBC (Bld) [#/Vol] 12.24 10*3/uL High 3.70-11.00 [facility] Comment on above: Order Comment: Speci men Type: BLOOD SPECIMEN Ordering Facility: [facility] Address: [address] [place] [address] Performed By: #### 5 7021-8 #### [facility] CLIA [id number] [address] ED PROV NOTEon 04-12-2024 ED PROV NOTE HNO ID: [id number] Author: MELVIN BINGHAM MD Service: Emergency Medicine [...] having hematuria since Sunday- was seen in [place] [facility] and urologist this week. Pt states [...] He went to the emergency department in [place] and was told to follow-up with urology outpatient. Patient had urology appointment in [place] on of this past week who planned for cystoscopy on April 29. They were told that if he had any new symptoms to go to the emergency department. Patient went back to the emergency department in [place] where they performed lab work that was negative for anemia. The patient is now reporting continued dizziness and headache. Patient inquiring if they can see urology for cystoscopy on a more urgent basis here at [facility]. Patient is well appearing in no [...] Diagnostic Testi (more content not included)... Normal [facility] Urinalysis complete panel (U )on 04-12-2024 Bacteria LM.HPF (Urine sed) [#/Area] Few Abnormal None Seen [facility] Comment on above: Order Comment: Speci men Type: URINE SPECIMEN Ordering Facility: [facility] Address: [address] [place] [address] Performed By: #### 2 4356-8 #### [facility] CLIA [id number] [address] Bilirubin Ql (U) 1+ Abnormal Negative [facility] Comment on above: Order Comment: Speci men Type: URINE SPECIMEN Ordering Facility: [facility] Address: [address] [place] [address] Result Comment: Sugg est correlation with clinical findings and serum bilirubin if clinically indicated. Performed By: #### 2 4356-8 #### [facility] CLIA [id number] [address] Clarity (Unsp spec) Cloudy Abnormal Clear [facility] Comment on above: Order Comment: Speci men Type: URINE SPECIMEN Ordering Facility: [facility] Address: [address] [place] [address] Performed By: #### 2 4356-8 #### [facility] CLIA [id number] [address] [facility] Color (U) Yellow Normal Yellow [facility] Comment on above: Order Comment: Speci men Type: URINE SPECIMEN Ordering Facility: [facility] Address: [address] [place] [address] Performed By: #### 2 4356-8 #### [facility] CLIA [id number] [address] [place] Glucose Test strip (U) [Mass/Vol] Trace Abnormal Negative [facility] Comment on above: Order Comment: Speci men Type: URINE SPECIMEN Ordering Facility: [facility] Address: [address] [place] [address] Performed By: #### 2 4356-8 #### [facility] CLIA [id number] [address] [facility] Hemoglobin Ql (U) 3+ Abnormal Negative [facility] Comment on above: Order Comment: Speci men Type: URINE SPECIMEN Ordering Facility: [facility] Address: [address] [place] [address] Performed By: #### 2 4356-8 #### [facility] CLIA [id number] [address] [facility] Ketones Ql (U) Trace Abnormal Negative [facility] Comment on above: Order Comment: Speci men Type: URINE SPECIMEN Ordering Facility: [facility] Address: [address] [place] [address] Performed By: #### 2 4356-8 #### [facility] CLIA [id number] [address] Leukocyte esterase Test strip Ql (U) Negative Normal Negative [facility] Comment on above: Order Comment: Speci men Type: URINE SPECIMEN Ordering Facility: [facility] Address: [address] [place] [address] Performed By: #### 2 4356-8 #### [facility] CLIA [id number] [address] STATES [facility] Nitrite Ql (U) Negative Normal Negative [facility] Comment on above: Order Comment: Speci men Type: URINE SPECIMEN Ordering Facility: [facility] Address: [address] [place] [address] Performed By: #### 2 4356-8 #### [facility] CLIA [id number] [address] [place] pH (U) 6.0 [pH] Normal 5.0-8.0 [facility] Comment on above: Order Comment: Speci men Type: URINE SPECIMEN Ordering Facility: [facility] Address: [address] [place] [address] Performed By: #### 2 4356-8 #### [facility] CLIA [id number] 1 [place] [address] [place] Protein (U) [Mass/Vol] 1+ Abnormal Negative [facility] Comment on above: Order Comment: Speci men Type: URINE SPECIMEN Ordering Facility: [facility] Address: [address] [place] [address] Performed By: #### 2 4356-8 #### [facility] CLIA [id number] [address] RBC LM.HPF (Urine sed) [#/Area] /[HPF] Abnormal 0-3 /HPF [facility] Comment on above: Order Comment: Speci men Type: URINE SPECIMEN Ordering Facility: [facility] Address: [address] [place] [address] Performed By: #### 2 4356-8 #### [facility] CLIA [id number] [address] Specific gravity (U) [Rel density] >=1.030 High 1.005-1.030 [facility] Comment on above: Order Comment: Speci men Type: URINE SPECIMEN Ordering Facility: [facility] Address: [address] [place] [address] Performed By: #### 2 4356-8 #### [facility] CLIA [id number] [address] Urobilinogen Ql (U) 0.2 EU/dL Normal 0.2 EU/d L, 1.0 EU/dL [facility] Comment on above: Order Comment: Speci men Type: URINE SPECIMEN Ordering Facility: [facility] Address: [address] [place] [address] Performed By: #### 2 4356-8 #### [facility] CLIA [id number] [address] WBC LM.HPF (Urine sed) [#/Area] 6-10 /HPF Abnormal 0-5 /HPF [facility] Comment on above: Order Comment: Speci men Type: URINE SPECIMEN Ordering Facility: [facility] Address: [address] [place] [address] Performed By: #### 2 4356-8 #### [facility] CLIA [id number] 1 [place] [address] [place] XR Chest PA and Lateralon IMPRESSION: No developing abnormality or acute process Bi Data Architect: BERNIE Transcribe Date/Time: Feb 05 2024 8:15A Dictated by : TRES CARSON MD This examination was interpreted and the report reviewed and electronically signed by: TRES CARSON MD on Feb 05 2024 8:16AM [facility] DIVISION OF RADIOLOGY * * *Final Report* [...] change and osteophytosis. DIVISION OF RADIOLOGY Provider, [facility] - 02/05/2024 * * *Final Report* * [...] IMPRESSION: No developing abnormality or acute process Bi Data Architect: PSCB Transcribe Date/Time: Feb 05 2024 8:15A Dictated by : TRES CARSON MD This examination was interpreted and the report reviewed and electronically signed by: TRES CARSON MD on Feb 05 2024 8:16AM EST [facility] XR Chest PA and LateralOrder ed By: Ccf Provider on 02-05-2024 [facility] CBC W Auto Differential pane l (Bld)on 02-04-2024 Basophils (Bld) [#/Vol] 0.05 10*3/uL [facility] Basophils/100 WBC (Bld) 0.4 % [facility] Differential cell count method Nom (Bld) Auto [facility] Eosinophils (Bld) [#/Vol] 0.34 10*3/uL [facility] Eosinophils/100 WBC (Bld) 3.0 % [facility] Erythrocyte distribution width (RBC) [Ratio] 12.9 % 11.5 - 15.0 % [facility] Hematocrit (Bld) [Volume fraction] 41.9 % 39.0 - 51.0 % [facility] Hemoglobin (Bld) [Mass/Vol] 13.5 g/dL 13.0 - 17.0 g/dL [facility] Immature granulocytes (Bld) [#/Vol] 0.05 10*3/uL [facility] Immature granulocytes/100 WBC (Bld) 0.4 % [facility] Interpretation and review of laboratory results Abnormal [facility] Lymphocytes (Bld) [#/Vol] 1.59 10*3/uL [facility] Lymphocytes/100 WBC (Bld) 14.2 % [facility] MCH (RBC) [Entitic mass] 28.4 pg 26. 0 - 34.0 pg [facility] MCHC (RBC) [Mass/Vol] 32.2 g/dL 30.5 - 36.0 g/dL [facility] MCV (RBC) [Entitic vol] 88.2 fL 80.0 - 100.0 fL [facility] Monocytes (Bld) [#/Vol] 1.24 10*3/uL High [facility] Monocytes/100 WBC (Bld) 11.1 % [facility] Neutrophils (Bld) [#/Vol] 7.91 10*3/uL High [facility] Neutrophils/100 WBC (Bld) 70.9 % [facility] Nucleated RBC (Bld) [#/Vol] NINF [facility] Nucleated RBC/100 WBC (Bld) [Ratio] 0.0 % /100 WBC [facility] Platelet mean volume (Bld) [Entitic vol] 11.4 fL 9.0 - 12.7 fL [facility] Platelets (Bld) [#/Vol] 256 10*3/uL [facility] RBC (Bld) [#/Vol] 4.75 10*6/uL 4.20 - 6.0 0 m/uL [facility] WBC (Bld) [#/Vol] 11.18 10*3/uL [facility] and Lateralon Radiology Study observation (narrative) [facility] Absolute lymphocyte countOrd ered By: Tre Johnson on 09-22-2023 Lymphocytes Auto (Unsp spec) [#/Vol] 1.76 10*3/uL 0.83-4.51 [facility] Basophil percentageOrdered B y: Tre Johnson on 09-22-2023 Basophils/100 WBC (Bld) 0.4 % 0-1 [facility] Chloride [Moles/Vol] 106 mmol/L 98-107 [facility] Eosinophils/100 WBC (Bld) 3.4 % 0-5 [facility] Glucose [Mass/Vol] 168 mg/dL 74-106 [facility] Comment on above: Fasting Glucose resu lt greater than or equal to 126 mg/dL suggests DIABETES MELLITUS per A.D.A. criteria. Neutrophils (Bld) [#/Vol] 8.5 10*3/uL 2.0-7.7 [facility] Neutrophils/100 WBC (Bld) 71.2 % 47-70 [facility] Potassium [Moles/Vol] 4.0 mmol/L 3.5-5.1 [facility] Sodium [Moles/Vol] 137 mmol/L 136-145 [facility] WBC (Bld) [#/Vol] 12.0 10*3/uL 4.4-11.0 [facility] Blood erythrocytes count (nu mber/volume)Ordered By: Tre Johnson on 09-22-2023 RBC (Bld) [#/Vol] 5.22 10*6/uL 4.6-6.2 [facility] Blood hemoglobin measurement (mass/volume)Ordered By: Tre Johnson on 09-22-2023 Hemoglobin (Bld) [Mass/Vol] 14.1 g/dL 13.0-16. 5 [facility] Blood lymphocytes/100 leukoc ytesOrdered By: Tre Johnson on 09-22-2023 Lymphocytes/100 WBC (Bld) 14.7 % 19-41 [facility] Blood monocytes/100 leukocyt esOrdered By: Tre Johnson on 09-22-2023 Monocytes/100 WBC (Bld) 9.9 % 0-10 [facility] Blood platelet mean volumeOr dered By: Tre Johnson on 09-22-2023 Platelet mean volume (Bld) [Entitic vol] 10.9 fL 6.2-12.0 [facility] Determination of erythrocyte mean corpuscular volume (MCV)Ordered By: Tre Johnson on 09-22-2023 MCV (RBC) [Entitic vol] 83.5 fL 80-94 [facility] Hematocrit Auto (Bld) [Volum e fraction]Ordered By: Tre Johnson on 09-22-2023 Hematocrit (Bld) [Volume fraction] 43.6 % 40-54 [facility] Laboratory - Chemistry and C hemistry - challengeOrdered By: Tre Johnson on 09-22-2023 CO2 [Moles/Vol] 25.0 mmol/L 21.0-32.0 [facility] Urea nitrogen/Creatinine [Mass ratio] 16.8 mg/mg 10-20 [facility] - Hematology and Cell countsOrdered By: Tre Johnson on 09-22-2023 Erythrocyte distribution width (RBC) [Entitic vol] 43.0 fL 35.1-43.9 [facility] Erythrocyte distribution width (RBC) [Ratio] 14.2 % 11.6-14.6 [facility] Immature granulocytes/100 WBC (Bld) 0.400 % 0.0-0.9 [facility] Comment on above: IG% - Immature Granu locytes (promyelocytes, myelocytes and metamyelocytes) > 1% indicates that a LEFT SHIFT is Present. MCH (RBC) [Entitic mass] 27.0 pg 27.0-32.0 [facility] Nucleated RBC/100 WBC (Bld) [Ratio] 0 % 0-5 [facility] MCHC Auto (RBC) [Mass/Vol]Or dered By: Tre Johnson on 09-22-2023 MCHC (RBC) [Mass/Vol] 32.3 g/dL 32-36 [facility] No Panel InformationOrdered By: Tre Johnson on 09-22-2023 Troponin I High Sensitivity 9 pg/mL 3.0-78.0 [facility] Comment on above: Please Note: New Carmen t Units and Gender Specific Reference Ranges. For more information see Policy Stat Procedure [place] High Sensitivity Troponin (TNIH) and attachments. Estimated Creatinine Clearance Calc 63.26 ml/min [facility] Estimated GFR (MDRD) Amer 86 mL/min >60 [facility] Comment on above: GFR Calc Estimated GFR (MDRD) Non-Af Amer 71 mL/min >60 [facility] Comment on above: Non- GFR Calc Platelets bldOrdered By: Tashi Johnson on 09-22-2023 Platelets (Bld) [#/Vol] 210 10*3/uL 150-450 [facility] Comment on above: NO PLATELET CLUMPS Serum or plasma calcium nahomy urement (mass/volume)Ordered By: Tre Johnson on 09-22-2023 Calcium [Mass/Vol] 9.4 mg/dL 8.5-10.1 [facility] Serum or plasma creatinine m easurement (mass/volume)Ordered By: Tre Johnson on 09-22-2023 Creatinine [Mass/Vol] 1.07 mg/dL 0.70-1.30 [facility] Comment on above: The validity of the calculated GFR & GFRAA in patients over 70 years has not been determined. Clinical correlation is essential. Serum or plasma urea nitroge n measurement (mass/volume)Ordered By: Tre Johnson on 09-22-2023 Urea nitrogen [Mass/Vol] 18 mg/dL 7-18 [facility] Thin prep Papanicolaou smear with manual screeningOrdered By: Tre Johnson on 09-22-2023 Thin prep Papanicolaou smear with manual screening 6 5-15 [facility] XR Chest PA and Lateralon IMPRESSION: Diffuse coarsening of the lung markings, with areas of linear atelectasis or fibrosis. Stable Cardiomegaly Bi Data Architect: BERNIE Transcribe Date/Time: Sep 11 2023 12:08P Dictated by : TRES CARSON MD This examination was interpreted and the report reviewed and electronically signed by: TRES CARSON MD on Sep 11 2023 12:10PM [facility] DIVISION OF RADIOLOGY * * *Final Report* [...] DIVISION OF RADIOLOGY Provider, Jammie Joel garcia [place] - 09/11/2023 * * *Final Report* * [...] of linear atelectasis or fibrosis. Stable Cardiomegaly Bi Data Architect: PSCB Transcribe Date/Time: Sep 11 2023 12:08P Dictated by : TRES CARSON MD This examination was interpreted and the report reviewed and electronically signed by: TRES CARSON MD on Sep 11 2023 12:10PM EST [facility] XR Chest PA and LateralOrder ed By: Ccf Provider on 09-11-2023 [facility] XR Chest PA and Lateralon Radiology Study observation (narrative) [facility] XR Pelvis and Hip - right AP and Lateral frogon 07-25-2023 IMPRESSION: Minimal right hip osteoarthritis without acute osseous abnormality. Bi Data Architect: BERNIE Transcribe Date/Time: Jul 25 2023 9:21A [...] spine. Pelvic enthesopathy. DIVISION OF RADIOLOGY Provider, [facility] - 07/25/2023 * * *Final Report* [...] right hip osteoarthritis without acute osseous abnormality. Bi Data Architect: BERNIE Transcribe Date/Time: Jul 25 2023 9:21A Dictated by : CARINA IGLESIAS DO This examination was interpreted and the report reviewed and electronically signed by: CARINA IGLESIAS DO on Jul 25 2023 9:22AM EST [facility] XR Pelvis and Hip - right AP and Lateral frogOrdered By: Cclloyd Provider on 07-25-2023 [facility] XR Pelvis and Hip - right AP and Lateral frogon 07-23-2023 Radiology Study observation (narrative) [facility] XR CHEST 2V FRONTAL/LATon [facility] XR Chest PA and Lateralon IMPRESSION: Question of some mild bilateral perihilar infiltrate. Bi Data Architect: BERNIE Transcribe Date/Time: Jun 09 2023 12:07P Dictated by : MAN ROSADO DO This examination was interpreted and the report reviewed and electronically signed by: MAN ROSADO DO on Jun 09 2023 12:08PM [facility] DIVISION OF RADIOLOGY * * *Final Report* [...] Unremarkable. DIVISION OF RADIOLOGY Provider, Dara garcia [place] - 06/09/2023 * * *Final Report* * [...] Question of some mild bilateral perihilar infiltrate. Bi Data Architect: BERNIE Transcribe Date/Time: Jun 09 2023 12:07P Dictated by : MAN ROSADO DO This examination was interpreted and the report reviewed and electronically signed by: MAN ROSADO DO on Jun 09 2023 12:08PM EST [facility] Radiology Study observation (narrative) [facility] XR Chest PA and LateralOrder ed By: Ccf Provider on 06-09-2023 [facility] Absolute lymphocyte countOrd ered By: Mani Esquivel on 03-31-2023 Lymphocytes Auto (Unsp spec) [#/Vol] 1.83 10*3/uL 0.83-4.51 [facility] Basophil percentageOrdered B y: Mani Esquivel on 03-31-2023 Basophils/100 WBC (Bld) 0.5 % 0-1 [facility] Bilirubin [Mass/Vol] 0.30 mg/dL 0.20-1.00 [facility] Comment on above: For patients on eltr ombopag therapy, use of Dimension [place] TBIL is not recommended. Chloride [Moles/Vol] 103 mmol/L 98-107 [facility] Eosinophils/100 WBC (Bld) 3.4 % 0-5 [facility] Glucose [Mass/Vol] 81 mg/dL 74-106 [facility] Neutrophils (Bld) [#/Vol] 8.5 10*3/uL 2.0-7.7 [facility] Neutrophils/100 WBC (Bld) 68.4 % 47-70 [facility] Potassium [Moles/Vol] 4.6 mmol/L 3.5-5.1 [facility] Comment on above: Moderate Hemolysis, Result may be falsely increased. Protein [Mass/Vol] 7.2 g/dL 6.4-8.2 [facility] Sodium [Moles/Vol] 135 mmol/L 136-145 [facility] WBC (Bld) [#/Vol] 12.4 10*3/uL 4.4-11.0 [facility] Blood erythrocytes count (nu mber/volume)Ordered By: Mani Esquivel on 03-31-2023 RBC (Bld) [#/Vol] 4.74 10*6/uL 4.6-6.2 [facility] Blood hemoglobin measurement (mass/volume)Ordered By: Mani Esquivel on 03-31-2023 Hemoglobin (Bld) [Mass/Vol] 13.6 g/dL 13.0-16. 5 [facility] Blood lymphocytes/100 leukoc ytesOrdered By: Mani Esquivel on 03-31-2023 Lymphocytes/100 WBC (Bld) 14.8 % 19-41 [facility] Blood manual differential co mment interpretation (narrative result)Ordered By: Mani Esquivel on 03-31-2023 Manual differential comment Rey (Bld) [Interp] SCANNED [facility] Comment on above: MONOCYTOSIS Blood monocytes/100 leukocyt esOrdered By: Mani Esquivel on 03-31-2023 Monocytes/100 WBC (Bld) 12.5 % 0-10 [facility] Blood platelet mean volumeOr dered By: Mani Esquivel on 03-31-2023 Platelet mean volume (Bld) [Entitic vol] 11.0 fL 6.2-12.0 [facility] Determination of erythrocyte mean corpuscular volume (MCV)Ordered By: Mani Esquivel on 03-31-2023 MCV (RBC) [Entitic vol] 88.2 fL 80-94 [facility] Direct bilirubinOrdered By: Mani Esquivel on 03-31-2023 Bilirubin.direct [Mass/Vol] 0.07 mg/dL 0.00-0.3 0 [facility] Hematocrit Auto (Bld) [Volum e fraction]Ordered By: Mani Esquivel on 03-31-2023 Hematocrit (Bld) [Volume fraction] 41.8 % 40-54 [facility] Laboratory - Chemistry and C hemistry - challengeOrdered By: Mani Esquivel on 03-31-2023 ALP [Catalytic activity/Vol] 72 U/L 45-117 [facility] ALT [Catalytic activity/Vol] 32 U/L 16-61 [facility] CO2 [Moles/Vol] 25.0 mmol/L 21.0-32.0 [facility] Globulin (S) [Mass/Vol] 3.8 g/dL 2.2-4.2 [facility] Lipase [Catalytic activity/Vol] 433 U/L 13-75 [facility] Comment on above: Please note:LIPASE r evised reference range effective 22. New Lipase methodology. Expected to produce lower values than the previous assay method. NEW Reference Range: 13 - 75 U/L Urea nitrogen/Creatinine [Mass ratio] 14.8 mg/mg 10-20 [facility] - Hematology and Cell countsOrdered By: Mani Esquivel on 03-31-2023 Erythrocyte distribution width (RBC) [Entitic vol] 42.4 fL 35.1-43.9 [facility] Erythrocyte distribution width (RBC) [Ratio] 13.1 % 11.6-14.6 [facility] Immature granulocytes/100 WBC (Bld) 0.400 % 0.0-0.9 [facility] Comment on above: IG% - Immature Granu locytes (promyelocytes, myelocytes and metamyelocytes) > 1% indicates that a LEFT SHIFT is Present. MCH (RBC) [Entitic mass] 28.7 pg 27.0-32.0 [facility] Nucleated RBC/100 WBC (Bld) [Ratio] 0 % 0-5 [facility] MCHC Auto (RBC) [Mass/Vol]Or dered By: Mani Esquivel on 03-31-2023 MCHC (RBC) [Mass/Vol] 32.5 g/dL 32-36 [facility] No Panel InformationOrdered By: Mani Esquivel on 03-31-2023 Estimated GFR (MDRD) Amer 51 mL/min >60 [facility] Comment on above: GFR Calc Estimated GFR (MDRD) Non-Af Amer 42 mL/min >60 [facility] Comment on above: Non- GFR Calc Platelets bldOrdered By: Rashel Esquivel on 03-31-2023 Platelets (Bld) [#/Vol] 249 10*3/uL 150-450 [facility] Review by pathologistOrdered By: Mani Esquivel on 03-31-2023 Pathologist review Rey (Unsp spec) [Interp] Tamara bernard [facility] Pathologist review Rey (Unsp spec) [Interp] Reviewed [facility] Comment on above: Previous reported re sult: Tamara bernard Edited by: DEEPTHI on 04/03/23:1218Leukocytosis.Clinical correlation necessary.Callum Arteaga M.D. 04/03/23 AMENDED REPORT 04/03/23 1218 PATH REV previously reported as: Tamara bernard Serum or plasma albumin nahomy urement (mass/volume)Ordered By: Mani Esquivel on 03-31-2023 Albumin [Mass/Vol] 3.4 g/dL 3.2-5.0 [facility] Serum or plasma calcium nahomy urement (mass/volume)Ordered By: Mani Esquivel on 03-31-2023 Calcium [Mass/Vol] 8.7 mg/dL 8.5-10.1 [facility] Serum or plasma creatinine m easurement (mass/volume)Ordered By: Mani Esquivel on 03-31-2023 Creatinine [Mass/Vol] 1.69 mg/dL 0.70-1.30 [facility] Comment on above: The validity of the calculated GFR & GFRAA in patients over 70 years has not been determined. Clinical correlation is essential. Serum or plasma urea nitroge n measurement (mass/volume)Ordered By: Mani Esquivel on 03-31-2023 Urea nitrogen [Mass/Vol] 25 mg/dL -18 [facility] Thin prep Papanicolaou smear with manual screeningOrdered By: Mani Esquivel on 03-31-2023 Thin prep Papanicolaou smear with manual screening 27 U/L 15- [facility] Comment on above: Moderate Hemolysis, Result may be falsely increased. Thin prep Papanicolaou smear with manual screening 7 -15 [facility] CBC W Auto Differential pane l (Bld)on 03-02-2023 Basophils (Bld) [#/Vol] 0.06 10*3/uL <0.11 k/uL [facility] Basophils/100 WBC (Bld) 0.5 % [facility] Differential cell count method Nom (Bld) Auto [facility] Eosinophils (Bld) [#/Vol] 0.44 10*3/uL <0.46 k/ uL [facility] Eosinophils/100 WBC (Bld) 4.0 % [facility] Erythrocyte distribution width (RBC) [Ratio] 13.3 % 11.5 - 15.0 % [facility] Hematocrit (Bld) [Volume fraction] 44.9 % 39.0 - 51.0 % [facility] Hemoglobin (Bld) [Mass/Vol] 14.4 g/dL 13.0 - 17.0 g/dL [facility] Immature granulocytes (Bld) [#/Vol] 0.04 10*3/uL <0.10 k/uL [facility] Immature granulocytes/100 WBC (Bld) 0.4 % [facility] Lymphocytes (Bld) [#/Vol] 2.03 10*3/uL 1. 00 - 4.00 k/uL [facility] Lymphocytes/100 WBC (Bld) 18.5 % [facility] MCH (RBC) [Entitic mass] 28.7 pg 26. 0 - 34.0 pg [facility] MCHC (RBC) [Mass/Vol] 32.1 g/dL 30.5 - 36.0 g/dL [facility] MCV (RBC) [Entitic vol] 89.4 fL 80.0 - 100.0 fL [facility] Monocytes (Bld) [#/Vol] 1.22 10*3/uL High <0.87 k/uL [facility] Monocytes/100 WBC (Bld) 11.1 % [facility] Neutrophils (Bld) [#/Vol] 7.19 10*3/uL 1. 45 - 7.50 k/uL [facility] Neutrophils/100 WBC (Bld) 65.5 % [facility] Nucleated RBC (Bld) [#/Vol] <0.01 k/ uL [facility] Nucleated RBC/100 WBC (Bld) [Ratio] 0.0 /100 WBC [facility] Platelet mean volume (Bld) [Entitic vol] 11.5 fL 9.0 - 12.7 fL [facility] Platelets (Bld) [#/Vol] 259 10*3/uL 150 - 400 k/uL [facility] RBC (Bld) [#/Vol] 5.02 10*6/uL 4.20 - 6.0 0 m/uL [facility] WBC (Bld) [#/Vol] 10.98 10*3/uL 3.70 - 11.00 k/uL [facility] Absolute lymphocyte countOrd ered By: Dr. Taylor on 03-01-2023 Lymphocytes Auto (Unsp spec) [#/Vol] 2.50 10*3/uL 0.83-4.51 [facility] Basophil percentageOrdered B y: Dr. Taylor on 03-01-2023 Basophils/100 WBC (Bld) 0.5 % 0-1 [facility] Bilirubin [Mass/Vol] 0.30 mg/dL 0.20-1.00 [facility] Comment on above: For patients on eltr ombopag therapy, use of Dimension [place] TBIL is not recommended. Chloride [Moles/Vol] 101 mmol/L 98-107 [facility] Eosinophils/100 WBC (Bld) 3.2 % 0-5 [facility] Glucose [Mass/Vol] 132 mg/dL 74-106 [facility] Comment on above: Fasting Glucose resu lt greater than or equal to 126 mg/dL suggests DIABETES MELLITUS per A.D.A. criteria. Neutrophils (Bld) [#/Vol] 7.2 10*3/uL 2.0-7.7 [facility] Neutrophils/100 WBC (Bld) 62.9 % 47-70 [facility] Potassium [Moles/Vol] 3.8 mmol/L 3.5-5.1 [facility] Protein [Mass/Vol] 7.1 g/dL 6.4-8.2 [facility] Sodium [Moles/Vol] 133 mmol/L 136-145 [facility] WBC (Bld) [#/Vol] 11.4 10*3/uL 4.4-11.0 [facility] Basophil percentage 0-5 SEEN /hpf 0-5 [facility] Bilirubin Test strip Ql (U)O rdered By: Dr. Taylor on 03-01-2023 Bilirubin Ql (U) Negative Negative [facility] Blood erythrocytes count (nu mber/volume)Ordered By: Dr. Taylor on 03-01-2023 RBC (Bld) [#/Vol] 4.89 10*6/uL 4.6-6.2 [facility] Blood hemoglobin measurement (mass/volume)Ordered By: Dr. Taylor on 03-01-2023 Hemoglobin (Bld) [Mass/Vol] 14.0 g/dL 13.0-16. 5 [facility] Blood lymphocytes/100 leukoc ytesOrdered By: Dr. Taylor on 03-01-2023 Lymphocytes/100 WBC (Bld) 21.9 % 19-41 [facility] Blood monocytes/100 leukocyt esOrdered By: Dr. Taylor on 03-01-2023 Monocytes/100 WBC (Bld) 11.2 % 0-10 [facility] Blood platelet mean volumeOr dered By: Dr. Taylor on 03-01-2023 Platelet mean volume (Bld) [Entitic vol] 10.9 fL 6.2-12.0 [facility] Determination of erythrocyte mean corpuscular volume (MCV)Ordered By: Dr. Taylor on 03-01-2023 MCV (RBC) [Entitic vol] 86.1 fL 80-94 [facility] Hematocrit Auto (Bld) [Volum e fraction]Ordered By: Dr. Taylor on 03-01-2023 Hematocrit (Bld) [Volume fraction] 42.1 % 40-54 [facility] Hyaline casts LM.LPF (Urine sed) [#/Area]Ordered By: Dr. Taylor on 03-01-2023 Hyaline casts (Urine sed) [#/Area] 0 /[LPF] 0-5 [facility] Ketones Test strip Ql (U)Ord ered By: Dr. Taylor on 03-01-2023 Ketones Ql (U) 5 mg/dl Negative [facility] Laboratory - Chemistry and C hemistry - challengeOrdered By: Dr. Taylor on 03-01-2023 ALP [Catalytic activity/Vol] 73 U/L 45-117 [facility] ALT [Catalytic activity/Vol] 33 U/L 16-61 [facility] CO2 [Moles/Vol] 24.0 mmol/L 21.0-32.0 [facility] Globulin (S) [Mass/Vol] 3.6 g/dL 2.2-4.2 [facility] Lipase [Catalytic activity/Vol] 82 U/L 13-75 [facility] Comment on above: Please note:LIPASE r evised reference range effective 22. New Lipase methodology. Expected to produce lower values than the previous assay method. NEW Reference Range: 13 - 75 U/L Urea nitrogen/Creatinine [Mass ratio] 24.8 mg/mg 10-20 [facility] Laboratory - Hematology and Cell countsOrdered By: Dr. Taylor on 03-01-2023 Erythrocyte distribution width (RBC) [Entitic vol] 41.3 fL 35.1-43.9 [facility] Erythrocyte distribution width (RBC) [Ratio] 13.2 % 11.6-14.6 [facility] Immature granulocytes/100 WBC (Bld) 0.300 % 0.0-0.9 [facility] Comment on above: IG% - Immature Granu locytes (promyelocytes, myelocytes and metamyelocytes) > 1% indicates that a LEFT SHIFT is Present. MCH (RBC) [Entitic mass] 28.6 pg 27.0-32.0 [facility] Nucleated RBC/100 WBC (Bld) [Ratio] 0 % 0-5 [facility] MCHC Auto (RBC) [Mass/Vol]Or dered By: Dr. Taylor on 03-01-2023 MCHC (RBC) [Mass/Vol] 33.3 g/dL 32-36 [facility] Mucus LM Ql (Urine sed)Order ed By: Dr. Taylor on 03-01-2023 Mucus Ql (Urine sed) 0 SEEN /hpf [facility] Nitrite Test strip Ql (U)Ord ered By: Dr. Taylor on 03-01-2023 Nitrite Ql (U) Negative Negative [facility] No Panel InformationOrdered By: Dr. Taylor on 03-01-2023 Estimated Creatinine Clearance Calc 48.80 ml/min [facility] Estimated GFR (MDRD) Amer 62 mL/min >60 [facility] Comment on above: GFR Calc Estimated GFR (MDRD) Non-Af Amer 52 mL/min >60 [facility] Comment on above: Non- GFR Calc Troponin I High Sensitivity 7 pg/mL 3.0-78.0 [facility] Comment on above: Please Note: New [place] Units and Gender Specific Reference Ranges. For more information see Policy Stat Procedure [place] High Sensitivity Troponin (TNIH) and attachments. Platelets bldOrdered By: Dr. Taylor on 03-01-2023 Platelets (Bld) [#/Vol] 266 10*3/uL 150-450 [facility] Protein Test strip Ql (U)Ord ered By: Dr. Taylor on 03-01-2023 Protein Ql (U) 15 mg/dl Negative [facility] Serum or plasma albumin nahomy urement (mass/volume)Ordered By: Dr. Taylor on 03-01-2023 Albumin [Mass/Vol] 3.5 g/dL 3.2-5.0 [facility] Serum or plasma albumin/glob ulin mass ratioOrdered By: Dr. Taylor on 03-01-2023 Albumin/Globulin [Mass ratio] 1.0 {ratio} 0.9-2.4 [facility] Serum or plasma calcium nahomy urement (mass/volume)Ordered By: Dr. Taylor on 03-01-2023 Calcium [Mass/Vol] 9.1 mg/dL 8.5-10.1 [facility] Serum or plasma creatinine m easurement (mass/volume)Ordered By: Dr. Taylor on 03-01-2023 Creatinine [Mass/Vol] 1.41 mg/dL 0.70-1.30 [facility] Comment on above: The validity of the calculated GFR & GFRAA in patients over 70 years has not been determined. Clinical correlation is essential. Serum or plasma urea nitroge n measurement (mass/volume)Ordered By: Dr. Taylor on 03-01-2023 Urea nitrogen [Mass/Vol] 35 mg/dL 7-18 [facility] Squamous epithelial cells de tection in urine sediment by light microscopyOrdered By: Dr. Taylor on 03-01-2023 Epithelial cells.squamous LM Ql (Urine sed) 0-5 SEEN /hpf 0-5 [facility] Thin prep Papanicolaou smear with manual screeningOrdered By: Dr. Taylor on 03-01-2023 Thin prep Papanicolaou smear with manual screening 16 U/L 15-37 [facility] Thin prep Papanicolaou smear with manual screening 8 5-15 [facility] Urine blood detectionOrdered By: Dr. Taylor on 03-01-2023 RBC Ql (U) 50 /ul Negative [facility] RBC Ql (U) 0-5 SEEN /hpf 0-5 [facility] Urine clarityOrdered By: Dr. Taylor on 03-01-2023 Clarity (U) Clear Clear [facility] Urine color determinationOrd ered By: Dr. Taylor on 03-01-2023 Color (U) Yellow Yellow [facility] Urine glucose detectionOrder ed By: Dr. Taylor on 03-01-2023 Glucose Ql (U) 250 mg/dl Normal [facility] Urine leukocyte esterase det ection by dipstickOrdered By: Dr. Taylor on 03-01-2023 Leukocyte esterase Test strip Ql (U) Negative Negative [facility] Urine pHOrdered By: Dr. Katlyn burns on 03-01-2023 pH (U) 5.0 [pH] 5.0 - 8.0 [facility] Urine sediment bacteria coun t by microscopy (number/high power field)Ordered By: Dr. Taylor on 03-01-2023 Bacteria LM.HPF (Urine sed) [#/Area] 0 /[HPF] None Seen [facility] Urine specific gravity measu rementOrdered By: Dr. Taylor on 03-01-2023 Specific gravity (U) [Rel density] 1.025 1.002-1.030 [facility] Urobilinogen Auto test strip Ql (U)Ordered By: Dr. Taylor on 03-01-2023 Urobilinogen Ql (U) Normal mg/dl Normal [facility] Glucose Glucometer (BldC) [M ass/Vol]Ordered By: Mani Esquivel on 02-25-2023 Glucose [Mass/Vol] 132 mg/dL 74-106 [facility] Comment on above: MANAGEMENT OF PATIEN T CARE PER NURSING PROTOCOL Absolute lymphocyte countOrd ered By: Mani Esquivel on 02-24-2023 Lymphocytes Auto (Unsp spec) [#/Vol] 1.89 10*3/uL 0.83-4.51 [facility] Basophil percentageOrdered B y: Mani Esquivel on 02-24-2023 Basophils/100 WBC (Bld) 0.4 % 0-1 [facility] Bilirubin [Mass/Vol] 0.20 mg/dL 0.20-1.00 [facility] Comment on above: For patients on eltr ombopag therapy, use of Dimension [place] TBIL is not recommended. Chloride [Moles/Vol] 106 mmol/L 98-107 [facility] Eosinophils/100 WBC (Bld) 4.3 % 0-5 [facility] Glucose [Mass/Vol] 66 mg/dL 74-106 [facility] Neutrophils (Bld) [#/Vol] 6.7 10*3/uL 2.0-7.7 [facility] Neutrophils/100 WBC (Bld) 65.7 % 47-70 [facility] Potassium [Moles/Vol] 3.9 mmol/L 3.5-5.1 [facility] Protein [Mass/Vol] 6.9 g/dL 6.4-8.2 [facility] Sodium [Moles/Vol] 138 mmol/L 136-145 [facility] WBC (Bld) [#/Vol] 10.2 10*3/uL 4.4-11.0 [facility] Blood erythrocytes count (nu mber/volume)Ordered By: Mani Esquivel on 02-24-2023 RBC (Bld) [#/Vol] 4.82 10*6/uL 4.6-6.2 [facility] Blood hemoglobin measurement (mass/volume)Ordered By: Mani Esquivel on 02-24-2023 Hemoglobin (Bld) [Mass/Vol] 13.9 g/dL 13.0-16. 5 [facility] Blood lymphocytes/100 leukoc ytesOrdered By: Mani Esquivel on 02-24-2023 Lymphocytes/100 WBC (Bld) 18.5 % 19-41 [facility] Blood monocytes/100 leukocyt esOrdered By: Mani Esquivel on 02-24-2023 Monocytes/100 WBC (Bld) 10.7 % 0-10 [facility] Blood platelet mean volumeOr dered By: Mani Esquivel on 02-24-2023 Platelet mean volume (Bld) [Entitic vol] 10.7 fL 6.2-12.0 [facility] Determination of erythrocyte mean corpuscular volume (MCV)Ordered By: Mani Esquivel on 02-24-2023 MCV (RBC) [Entitic vol] 86.9 fL 80-94 [facility] Direct bilirubinOrdered By: Mani Esquivel on 02-24-2023 Bilirubin.direct [Mass/Vol] 0.10 mg/dL 0.00-0.3 0 [facility] Hematocrit Auto (Bld) [Volum e fraction]Ordered By: Mani Esquivel on 02-24-2023 Hematocrit (Bld) [Volume fraction] 41.9 % 40-54 [facility] Laboratory - Chemistry and C hemistry - challengeOrdered By: Mani Esquivel on 02-24-2023 ALP [Catalytic activity/Vol] 61 U/L 45-117 [facility] ALT [Catalytic activity/Vol] 33 U/L 16-61 [facility] CO2 [Moles/Vol] 24.0 mmol/L 21.0-32.0 [facility] Globulin (S) [Mass/Vol] 3.6 g/dL 2.2-4.2 [facility] Lipase [Catalytic activity/Vol] 96 U/L 13-75 [facility] Comment on above: Please note:LIPASE r evised reference range effective 22. New Lipase methodology. Expected to produce lower values than the previous assay method. NEW Reference Range: 13 - 75 U/L Urea nitrogen/Creatinine [Mass ratio] 20.0 mg/mg 10-20 [facility] Laboratory - Hematology and Cell countsOrdered By: Mani Esquivel on 02-24-2023 Erythrocyte distribution width (RBC) [Entitic vol] 42.4 fL 35.1-43.9 [facility] Erythrocyte distribution width (RBC) [Ratio] 13.4 % 11.6-14.6 [facility] Immature granulocytes/100 WBC (Bld) 0.400 % 0.0-0.9 [facility] Comment on above: IG% - Immature Granu locytes (promyelocytes, myelocytes and metamyelocytes) > 1% indicates that a LEFT SHIFT is Present. MCH (RBC) [Entitic mass] 28.8 pg 27.0-32.0 [facility] Nucleated RBC/100 WBC (Bld) [Ratio] 0 % 0-5 [facility] MCHC Auto (RBC) [Mass/Vol]Or dered By: Mani Esquivel on 02-24-2023 MCHC (RBC) [Mass/Vol] 33.2 g/dL 32-36 [facility] No Panel InformationOrdered By: Mani Esquivel on 02-24-2023 Estimated Creatinine Clearance Calc 68.80 ml/min [facility] Estimated GFR (MDRD) Amer 93 mL/min >60 [facility] Comment on above: GFR Calc Estimated GFR (MDRD) Non-Af Amer 77 mL/min >60 [facility] Comment on above: Non- GFR Calc Troponin I High Sensitivity 7 pg/mL 3.0-78.0 [facility] Comment on above: Please Note: New [place] Units and Gender Specific Reference Ranges. For more information see Policy Stat Procedure [place] High Sensitivity Troponin (TNIH) and attachments. Platelets bldOrdered By: Rashel Esquivel on 02-24-2023 Platelets (Bld) [#/Vol] 234 10*3/uL 150-450 [facility] Serum or plasma albumin nahomy urement (mass/volume)Ordered By: Mani Esquivel on 02-24-2023 Albumin [Mass/Vol] 3.3 g/dL 3.2-5.0 [facility] Serum or plasma calcium nahomy urement (mass/volume)Ordered By: Mani Esquivel on 02-24-2023 Calcium [Mass/Vol] 8.9 mg/dL 8.5-10.1 [facility] Serum or plasma creatinine m easurement (mass/volume)Ordered By: Mani Esquivel on 02-24-2023 Creatinine [Mass/Vol] 1.00 mg/dL 0.70-1.30 [facility] Comment on above: The validity of the calculated GFR & GFRAA in patients over 70 years has not been determined. Clinical correlation is essential. Serum or plasma urea nitroge n measurement (mass/volume)Ordered By: Mani Esquivel on 02-24-2023 Urea nitrogen [Mass/Vol] 20 mg/dL 7-18 [facility] Thin prep Papanicolaou smear with manual screeningOrdered By: Mani Esquivel on 02-24-2023 Thin prep Papanicolaou smear with manual screening 21 U/L 15-37 [facility] Thin prep Papanicolaou smear with manual screening 8 5-15 [facility] XR ANKLE GENERAL 3V AP/LAT/O BL LEFTon 02-16-2023 [facility] XR Ankle - left AP and Later al and obliqueon 02-16-2023 IMPRESSION: Degenerative changes in the left ankle with mild soft tissue swelling. No acute fracture seen. Patient can be reevaluated in 10-14 days if symptoms persist. Bi Data Architect: [email or web address] Transcribe Date/Time: Feb 16 2023 3:38P Dictated by : XOCHITL SHIPMAN MD This examination was interpreted and the report reviewed and electronically signed by: XOCHITL SHIPMAN MD on Feb 16 2023 3:40PM [facility] DIVISION OF RADIOLOGY * * *Final Report* [...] reevaluated in 10-14 days if symptoms persist. Bi Data Architect: [email or web address] Transcribe Date/Time: Feb 16 2023 3:38P Dictated by : XOCHITL SHIPMAN MD This examination was interpreted and the report reviewed and electronically signed by: XOCHITL SHIPMAN MD on Feb 16 2023 3:40PM EST [facility] Radiology Study observation (narrative) [facility] XR Ankle - left AP and Later al and obliqueOrdered By: [facility] Provider on 02-16-2023 [facility] Absolute lymphocyte countOrd ered By: Dr. Taylor on 11-21-2022 Lymphocytes Auto (Unsp spec) [#/Vol] 2.17 10*3/uL 0.83-4.51 [facility] Basophil percentageOrdered B y: Dr. Taylor on 11-21-2022 Basophils/100 WBC (Bld) 0.5 % 0-1 [facility] Chloride [Moles/Vol] 102 mmol/L 98-107 [facility] Eosinophils/100 WBC (Bld) 3.3 % 0-5 [facility] Glucose [Mass/Vol] 153 mg/dL 74-106 [facility] Comment on above: Fasting Glucose resu lt greater than or equal to 126 mg/dL suggests DIABETES MELLITUS per A.D.A. criteria. Neutrophils (Bld) [#/Vol] 7.9 10*3/uL 2.0-7.7 [facility] Neutrophils/100 WBC (Bld) 65.5 % 47-70 [facility] Potassium [Moles/Vol] 3.9 mmol/L 3.5-5.1 [facility] Sodium [Moles/Vol] 134 mmol/L 136-145 [facility] WBC (Bld) [#/Vol] 12.1 10*3/uL 4.4-11.0 [facility] Blood erythrocytes count (nu mber/volume)Ordered By: Dr. Taylor on 11-21-2022 RBC (Bld) [#/Vol] 5.03 10*6/uL 4.6-6.2 [facility] Blood hemoglobin measurement (mass/volume)Ordered By: Dr. Taylor on 11-21-2022 Hemoglobin (Bld) [Mass/Vol] 14.7 g/dL 13.0-16. 5 [facility] Blood lymphocytes/100 leukoc ytesOrdered By: Dr. Taylor on 11-21-2022 Lymphocytes/100 WBC (Bld) 17.9 % 19-41 [facility] Blood monocytes/100 leukocyt esOrdered By: Dr. Taylor on 11-21-2022 Monocytes/100 WBC (Bld) 12.4 % 0-10 [facility] Blood platelet mean volumeOr dered By: Dr. Taylor on 11-21-2022 Platelet mean volume (Bld) [Entitic vol] 11.2 fL 6.2-12.0 [facility] Determination of erythrocyte mean corpuscular volume (MCV)Ordered By: Dr. Taylor on 11-21-2022 MCV (RBC) [Entitic vol] 85.5 fL 80-94 [facility] Glucose Glucometer (BldC) [M ass/Vol]Ordered By: Dr. Kebede on 11-21-2022 Glucose [Mass/Vol] 160 mg/dL 74-106 [facility] Comment on above: MANAGEMENT OF PATIEN T CARE PER NURSING PROTOCOL Hematocrit Auto (Bld) [Volum e fraction]Ordered By: Dr. Taylor on 11-21-2022 Hematocrit (Bld) [Volume fraction] 43.0 % 40-54 [facility] Laboratory - Chemistry and C hemistry - challengeOrdered By: Dr. Stevenson on 11-21-2022 Magnesium [Mass/Vol] 2.0 mg/dL 1.6-2.6 [facility] Laboratory - Chemistry and C hemistry - challengeOrdered By: Dr. Taylor on 11-21-2022 CO2 [Moles/Vol] 24.0 mmol/L 21.0-32.0 [facility] Urea nitrogen/Creatinine [Mass ratio] 20.5 mg/mg 10-20 [facility] Laboratory - Hematology and Cell countsOrdered By: Dr. Taylor on 11-21-2022 Erythrocyte distribution width (RBC) [Entitic vol] 41.1 fL 35.1-43.9 [facility] Erythrocyte distribution width (RBC) [Ratio] 13.2 % 11.6-14.6 [facility] Immature granulocytes/100 WBC (Bld) 0.400 % 0.0-0.9 [facility] Comment on above: IG% - Immature Granu locytes (promyelocytes, myelocytes and metamyelocytes) > 1% indicates that a LEFT SHIFT is Present. MCH (RBC) [Entitic mass] 29.2 pg 27.0-32.0 [facility] Nucleated RBC/100 WBC (Bld) [Ratio] 0 % 0-5 [facility] MCHC Auto (RBC) [Mass/Vol]Or dered By: Dr. Taylor on 11-21-2022 MCHC (RBC) [Mass/Vol] 34.2 g/dL 32-36 [facility] No Panel InformationOrdered By: Dr. Kebede on 11-21-2022 Troponin I High Sensitivity 8 pg/mL 3.0-78.0 [facility] Comment on above: Please Note: New [place] Units and Gender Specific Reference Ranges. For more information see Policy Stat Procedure [place] High Sensitivity Troponin (TNIH) and attachments. No Panel InformationOrdered By: Dr. Taylor on 11-21-2022 Estimated Creatinine Clearance Calc 56.40 ml/min [facility] Estimated GFR (MDRD) Amer 74 mL/min >60 [facility] Comment on above: GFR Calc Estimated GFR (MDRD) Non-Af Amer 61 mL/min >60 [facility] Comment on above: Non- GFR Calc Troponin I High Sensitivity 8 pg/mL 3.0-78.0 [facility] Comment on above: Please Note: New [place] t Units and Gender Specific Reference Ranges. For more information see Policy Stat Procedure [place] High Sensitivity Troponin (TNIH) and attachments. Platelets bldOrdered By: Dr. Taylor on 11-21-2022 Platelets (Bld) [#/Vol] 249 10*3/uL 150-450 [facility] Serum or plasma calcium nahomy urement (mass/volume)Ordered By: Dr. Taylor on 11-21-2022 Calcium [Mass/Vol] 9.0 mg/dL 8.5-10.1 [facility] Serum or plasma creatinine m easurement (mass/volume)Ordered By: Dr. Taylor on 11-21-2022 Creatinine [Mass/Vol] 1.22 mg/dL 0.70-1.30 [facility] Comment on above: The validity of the calculated GFR & GFRAA in patients over 70 years has not been determined. Clinical correlation is essential. Serum or plasma urea nitroge n measurement (mass/volume)Ordered By: Dr. Taylor on 11-21-2022 Urea nitrogen [Mass/Vol] 25 mg/dL 7-18 [facility] Thin prep Papanicolaou smear with manual screeningOrdered By: Dr. Taylor on 11-21-2022 Thin prep Papanicolaou smear with manual screening 8 5-15 [facility] Absolute lymphocyte counton 04-08-2022 Lymphocytes Auto (Unsp spec) [#/Vol] 1.70 10*3/uL 0.83-4.51 [facility] Work Phone: Basophil percentageon 2021 Basophils/100 WBC (Bld) 0.4 % 0-1 [facility] Work Phone: Chloride [Moles/Vol] 103 mmol/L 98-107 [facility] Work Phone: Eosinophils/100 WBC (Bld) 3.1 % 0-5 [facility] Work Phone: Glucose [Mass/Vol] 138 mg/dL 74-106 [facility] Work Phone: Comment on above: Fasting Glucose resu lt greater than or equal to 126 mg/dL suggests DIABETES MELLITUS per A.D.A. criteria. Neutrophils (Bld) [#/Vol] 7.1 10*3/uL 2.0-7.7 [facility] Work Phone: Neutrophils/100 WBC (Bld) 68.6 % 47-70 [facility] Work Phone: Potassium [Moles/Vol] 4.6 mmol/L 3.5-5.1 [facility] Work Phone: Comment on above: Slight Hemolysis, Re sult may be falsely increased. Sodium [Moles/Vol] 137 mmol/L 136-145 [facility]: WBC (Bld) [#/Vol] 10.4 10*3/uL 4.4-11.0 [facility] Work Phone: Blood erythrocytes count (nu mber/volume)on 04-08-2022 RBC (Bld) [#/Vol] 5.10 10*6/uL 4.6-6.2 [facility] Work Phone: [phone] Blood hemoglobin measurement (mass/volume)on 04-08-2022 Hemoglobin (Bld) [Mass/Vol] 14.0 g/dL 13.0-16. 5 [facility] Work Phone: Blood lymphocytes/100 leukoc yteson 04-08-2022 Lymphocytes/100 WBC (Bld) 16.4 % 19-41 [facility] Work Phone: Blood monocytes/100 leukocyt eson 04-08-2022 Monocytes/100 WBC (Bld) 11.1 % 0-10 [facility] Work Phone: Blood platelet mean volumeon 04-08-2022 Platelet mean volume (Bld) [Entitic vol] 11.5 fL 6.2-12.0 [facility] Work Phone: [phone] Determination of erythrocyte mean corpuscular volume (MCV)on 04-08-2022 MCV (RBC) [Entitic vol] 85.1 fL 80-94 [facility] Work Phone: Hematocrit Auto (Bld) [Volum e fraction]on 04-08-2022 Hematocrit (Bld) [Volume fraction] 43.4 % 40-54 [facility] Work Phone: Laboratory - Chemistry and C hemistry - challengeon 04-08-2022 CO2 [Moles/Vol] 26.0 mmol/L 21.0-32.0 [facility] Work Phone: Urea nitrogen/Creatinine [Mass ratio] 17.2 mg/mg 10-20 [facility] Work Phone: Laboratory - Hematology and Cell countson 04-08-2022 Erythrocyte distribution width (RBC) [Entitic vol] 45.3 fL 35.1-43.9 [facility] Work Phone: Erythrocyte distribution width (RBC) [Ratio] 14.5 % 11.6-14.6 [facility] Work Phone: Immature granulocytes/100 WBC (Bld) 0.400 % 0.0-0.9 [facility] Work Phone: Comment on above: IG% - Immature Granu locytes (promyelocytes, myelocytes and metamyelocytes) > 1% indicates that a LEFT SHIFT is Present. MCH (RBC) [Entitic mass] 27.5 pg 27.0-32.0 [facility] Work Phone: Nucleated RBC/100 WBC (Bld) [Ratio] 0 % 0-5 [facility] Work Phone: MCHC Auto (RBC) [Mass/Vol]on 04-08-2022 MCHC (RBC) [Mass/Vol] 32.3 g/dL 32-36 [facility] Work Phone: No Panel Informationon 04-08 Troponin I High Sensitivity 9 pg/mL 3.0-78.0 [facility] Work Phone: Comment on above: Please Note: New [place] t Units and Gender Specific Reference Ranges. For more information see Policy Stat Procedure [place] High Sensitivity Troponin (TNIH) and attachments. Estimated Creatinine Clearance Calc 59.31 ml/min [facility] Work Phone: Estimated GFR (MDRD) Amer 78 mL/min >60 [facility] Work Phone: Comment on above: GFR Calc Estimated GFR (MDRD) Non-Af Amer 65 mL/min >60 [facility] Work Phone: Comment on above: Non- GFR Calc Platelets bldon 04-08-2022 Platelets (Bld) [#/Vol] 247 10*3/uL 150-450 [facility] Work Phone: Serum or plasma calcium nahomy urement (mass/volume)on 04-08-2022 Calcium [Mass/Vol] 9.2 mg/dL 8.5-10.1 [facility] Work Phone: Serum or plasma creatinine m easurement (mass/volume)on 04-08-2022 Creatinine [Mass/Vol] 1.16 mg/dL 0.70-1.30 [facility] Work Phone: Comment on above: The validity of the calculated GFR & GFRAA in patients over 70 years has not been determined. Clinical correlation is essential. Serum or plasma urea nitroge n measurement (mass/volume)on 04-08-2022 Urea nitrogen [Mass/Vol] 20 mg/dL 7-18 [facility] Work Phone: Thin prep Papanicolaou smear with manual screeningon 04-08-2022 Thin prep Papanicolaou smear with manual screening 8 5-15 [facility] Work Phone: Basophil percentageon 2021 Chloride [Moles/Vol] 104 mmol/L 98-107 [facility] Work Phone: Glucose [Mass/Vol] 197 mg/dL 74-106 [facility] Work Phone: Comment on above: Fasting Glucose resu lt greater than or equal to 126 mg/dL suggests DIABETES MELLITUS per A.D.A. criteria. Potassium [Moles/Vol] 3.9 mmol/L 3.5-5.1 [facility] Work Phone: Sodium [Moles/Vol] 136 mmol/L 136-145 [facility] Work Phone: Laboratory - Chemistry and C hemistry - challengeon 02-07-2022 CO2 [Moles/Vol] 25.0 mmol/L 21.0-32.0 [facility] Work Phone: Urea nitrogen/Creatinine [Mass ratio] 16.8 mg/mg 10-20 [facility] Work Phone: No Panel Informationon 02-07 Estimated GFR (MDRD) Amer 86 mL/min >60 [facility] Work Phone: Comment on above: GFR Calc Estimated GFR (MDRD) Non-Af Amer 71 mL/min >60 [facility] Work Phone: Comment on above: Non- GFR Calc Serum or plasma calcium nahomy urement (mass/volume)on 02-07-2022 Calcium [Mass/Vol] 8.8 mg/dL 8.5-10.1 [facility] Work Phone: Serum or plasma creatinine m easurement (mass/volume)on 02-07-2022 Creatinine [Mass/Vol] 1.07 mg/dL 0.70-1.30 [facility] Work Phone: Comment on above: The validity of the calculated GFR & GFRAA in patients over 70 years has not been determined. Clinical correlation is essential. Serum or plasma urea nitroge n measurement (mass/volume)on 02-07-2022 Urea nitrogen [Mass/Vol] 18 mg/dL 7-18 [facility] Work Phone: Thin prep Papanicolaou smear with manual screeningon 02-07-2022 Thin prep Papanicolaou smear with manual screening 7 5-15 [facility] Work Phone: XR Chest PA and Lateralon IMPRESSION: No acute radiographic abnormality. Bi Data Architect: PSCB Transcribe Date/Time: Jul 13 2021 10:18A Dictated by : SILVIO WORTHY MD This examination was interpreted and the report reviewed and electronically signed by: SILVIO WORTHY MD on Jul 13 2021 10:19AM [facility] DIVISION OF RADIOLOGY * * *Final Report* [...] in the spine. DIVISION OF RADIOLOGY Provider, [facility] - 07/13/2021 * * *Final Report* [...] spine. IMPRESSION IMPRESSION: No acute radiographic abnormality. Bi Data Architect: BERNIE Transcribe Date/Time: Jul 13 2021 10:18A Dictated by : SILVIO WORTHY MD This examination was interpreted and the report reviewed and electronically signed by: SILVIO WORTHY MD on Jul 13 2021 10:19AM EST [facility] Radiology Study observation (narrative) [facility] XR Chest PA and LateralOrder ed By: [facility] Provider on 07-13-2021 [facility] XR Ribs - right Views and Ch est PAon 05-25-2021 IMPRESSION: No acute process is seen. Bi Data Architect: PSCB Transcribe Date/Time: May 25 2021 4:16P [...] spine appear stable. DIVISION OF RADIOLOGY Provider, [facility] - 05/25/2021 * * *Final Report* [...] IMPRESSION IMPRESSION: No acute process is seen. Bi Data Architect: PSCB Transcribe Date/Time: May 25 2021 4:16P Dictated by : SHAR ESTEBAN MD This examination was interpreted and the report reviewed and electronically signed by: SHAR ESTEBAN MD on May 25 2021 4:18PM EST [facility] Radiology Study observation (narrative) [facility] XR Ribs - right Views and Ch est PAOrdered By: [facility] Provider on 05-25-2021 [facility] XR Chest PA and Lateralon IMPRESSION: No acute radiographic abnormality is evident. Bi Data Architect: BERNIE Transcribe Date/Time: Jan 24 2021 2:44P Dictated by : ALY SABA MD This examination was interpreted and the report reviewed and electronically signed by: ALY SABA MD on Jan 24 2021 2:47PM [facility] DIVISION OF RADIOLOGY * * *Final Report* [...] the thoracic spine. DIVISION OF RADIOLOGY Provider, [facility] - 01/24/2021 * * *Final Report* [...] IMPRESSION: No acute radiographic abnormality is evident. Bi Data Architect: BERNIE Transcribe Date/Time: Jan 24 2021 2:44P Dictated by : ALY SABA MD This examination was interpreted and the report reviewed and electronically signed by: ALY SABA MD on Jan 24 2021 2:47PM EST [facility] Radiology Study observation (narrative) [facility] XR Chest PA and LateralOrder ed By: [facility] Provider on 01-24-2021 [facility] Vital Signs Date Time Vital Sign Value Performing Clinician Facility 05-04-2025 10:46-0400 Diastolic blood pressure 62 mm[Hg] Dr. Mathieu Virgen MD Work Phone: 5(744)511-491640 [place] [address] 05-04-2025 10:46-0400 Systolic blood pressure 106 mm[Hg] Dr. Mathieu Virgen MD Work Phone: 8(999)159-138540 [place] [address] 05-04-2025 10:13-0400 Body height 185.[address] Mathieu Virgen MD Work Phone: 5(912)608-286840 [place] [address] 05-04-2025 07:28-0400 Body mass index (BMI) [Ratio] 32 kg/m2 Dr. Mathieu Virgen MD Work Phone: 5(279)258-793340 [place] [address] 05-04-2025 07:28-0400 Body weight 110.[address] Mathieu Virgen MD Work Phone: 7(789)449-796440 [place] [address] 05-04-2025 07:28-0400 Heart rate 72 /min Dr. Mathieu Virgen MD Work Phone: 5(898)560-719040 [place] [address] 05-04-2025 07:28-0400 SaO2% (BldA) [Mass fraction] 96 % Dr. Mathieu Virgen MD Work Phone: 5(115)482-820440 [place] [address] 04-30-2025 16:33-0400 Body temperature 98.4 [degF] Dr. Mathieu Virgen MD Work Phone: 1(056)284-000140 [place] [address] 04-30-2025 16:33-0400 Diastolic blood pressure 73 mm[Hg] Dr. Mathieu Virgen MD Work Phone: 0(324)758-189340 [place] [address] 04-30-2025 16:33-0400 Heart rate 64 /min Dr. Mathieu Virgen MD Work Phone: 8(457)202-897740 [place] [address] 04-30-2025 16:33-0400 Respiratory rate 16 /min Dr. Mathieu Virgen MD Work Phone: 3(623)107-111940 [place] [address] 04-30-2025 16:33-0400 SaO2% (BldA) [Mass fraction] 98 % Dr. Mathieu Virgen MD Work Phone: 9(858)940-012040 [place] [address] 04-30-2025 16:33-0400 Systolic blood pressure 125 mm[Hg] Dr. Mathieu Virgen MD Work Phone: 1(247)225-843740 [place] [address] 04-30-2025 07:15-0400 Inhaled oxygen flow rate 2 L/min Dr. Mathieu Virgen MD Work Phone: 7(805)579-833140 [place] [address] 04-30-2025 03:23-0400 Body mass index (BMI) [Ratio] 33.2 kg/m2 Dr. Mathieu Virgen MD Work Phone: 4(822)289-070240 [place] [address] 04-30-2025 03:23-0400 Body weight 114.[address] Mathieu Virgen MD Work Phone: 3(258)854-909640 [place] [address] 04-29-2025 21:47-0400 Body temperature 97 [degF] Dr. Mathieu Virgen MD Work Phone: 1(211)715-778340 [place] [address] 04-29-2025 21:47-0400 Diastolic blood pressure 71 mm[Hg] Dr. Mathieu Virgen MD Work Phone: 6(902)195-983740 [place] [address] 04-29-2025 21:47-0400 Heart rate 71 /min Dr. Mathieu Virgen MD Work Phone: 6(713)446-638240 [place] [address] 04-29-2025 21:47-0400 Respiratory rate 22 /min Dr. Mathieu Virgen MD Work Phone: 1(854)041-897340 [place] [address] 04-29-2025 21:47-0400 SaO2% (BldA) [Mass fraction] 98 % Dr. Mathieu Virgen MD Work Phone: 9(026)243-770240 [place] [address] 04-29-2025 21:47-0400 Systolic blood pressure 138 mm[Hg] Dr. Mathieu Virgen MD Work Phone: 2(633)595-737040 [place] [address] 04-29-2025 21:43-0400 Body height 185.[address] Mathieu Virgen MD Work Phone: 6(960)612-263040 [place] [address] 04-29-2025 17:28-0400 Inhaled oxygen flow rate 2 L/min Dr. Mathieu Vrigen MD Work Phone: 2(208)464-019240 [place] [address] 04-29-2025 15:42-0400 Body mass index (BMI) [Ratio] 33.5 kg/m2 Dr. Mathieu Virgen MD Work Phone: 1(564)773-244740 [place] [address] 04-29-2025 15:42-0400 Body weight 115.[address] Mathieu Virgen MD Work Phone: 0(634)763-185240 [place] [address] 04-29-2025 15:29-0400 Body height 185.[address] Mathieu Virgen MD Work Phone: 1(349)149-499640 [place] [address] 04-08-2025 07:17-0400 Body mass index (BMI) [Ratio] 33.1 kg/m2 Dr. Mathieu Virgen MD Work Phone: 5(946)712-945640 [place] [address] 04-08-2025 07:17-0400 Body temperature 97.2 [degF] Dr. Mathieu Virgen MD Work Phone: 8(235)254-322340 [place] [address] 04-08-2025 07:17-0400 Body weight 113.[address] Mathieu Virgen MD Work Phone: 2(908)691-628440 [place] [address] 04-08-2025 07:17-0400 Diastolic blood pressure 59 mm[Hg] Dr. Mathieu Virgen MD Work Phone: 1(246)560-839540 [place] [address] 04-08-2025 07:17-0400 Heart rate 78 /min Dr. Mathieu Virgen MD Work Phone: 7(344)570-450640 [place] [address] 04-08-2025 07:17-0400 Respiratory rate 20 /min Dr. Mathieu Virgen MD Work Phone: 6(210)011-494340 [place] [address] 04-08-2025 07:17-0400 SaO2% (BldA) [Mass fraction] 95 % Dr. Mathieu Virgen MD Work Phone: 1(341)354-506540 [place] [address] 04-08-2025 07:17-0400 Systolic blood pressure 114 mm[Hg] Dr. Mathieu Virgen MD Work Phone: [facility] 02-26-2025 14:00-0400 Body height 185.[address] Mathieu Virgen MD Work Phone: [facility] 02-26-2025 14:00-0400 Body weight 119.[address] Mathieu Virgen MD Work Phone: [facility] 02-26-2025 14:00-0400 Heart rate 82 /min Dr. Mathieu Virgen MD Work Phone: [facility] 02-26-2025 14:00-0400 SaO2% (BldA) [Mass fraction] 94 % Dr. Mathieu Virgen MD Work Phone: [facility] 01-26-2025 14:24-0400 Body mass index (BMI) [Ratio] 35.49 kg/m2 Mathieu Virgen MD Work Phone: [facility] 01-26-2025 14:24-0400 Body weight 122.02 kg Mathieu Virgen MD Work Phone: [facility] 01-26-2025 14:24-0400 Diastolic blood pressure 64 mm[Hg] Mathieu Virgen MD Work Phone: [facility] 01-26-2025 14:24-0400 Heart rate 82 /min Mathieu Virgen MD Work Phone: [facility] 01-26-2025 14:24-0400 SaO2% (BldA) [Mass fraction] 94 % Mathieu Virgen MD Work Phone: [facility] 01-26-2025 14:24-0400 Systolic blood pressure 108 mm[Hg] Mathieu Virgen MD Work Phone: [facility] 01-26-2025 09:39-0400 Body height 185.[address] Mathieu Virgen MD Work Phone: [facility] 01-26-2025 09:39-0400 Body mass index (BMI) [Ratio] 35.2 kg/m2 Dr. Mathieu Virgen MD Work Phone: [facility] 01-26-2025 09:39-0400 Body weight 121.[address] Mathieu Virgen MD Work Phone: 7(662)202-316540 [place] [address] 01-26-2025 09:39-0400 Diastolic blood pressure 73 mm[Hg] Dr. Mathieu Virgen MD Work Phone: 3(422)348-893640 [place] [address] 01-26-2025 09:39-0400 Heart rate 80 /min Dr. Mathieu Virgen MD Work Phone: 2(792)926-971340 [place] [address] 01-26-2025 09:39-0400 Respiratory rate 20 /min Dr. Mathieu Virgen MD Work Phone: 1(139)513-745640 [place] [address] 01-26-2025 09:39-0400 Systolic blood pressure 141 mm[Hg] Dr. Mathieu Virgen MD Work Phone: 5(803)975-798840 [place] [address] 01-21-2025 08:57-0400 Body mass index (BMI) [Ratio] 35.4 kg/m2 Dr. Mathieu Virgen MD Work Phone: 8(392)925-390940 [place] [address] 01-21-2025 08:57-0400 Body temperature 97.7 [degF] Dr. Mathieu Virgen MD Work Phone: 6(852)326-565640 [place] [address] 01-21-2025 08:57-0400 Body weight 122.[address] Mathieu Virgen MD Work Phone: 1(429)197-680240 [place] [address] 01-21-2025 08:57-0400 Diastolic blood pressure 66 mm[Hg] Dr. Mathieu Virgen MD Work Phone: 9(397)155-429640 [place] [address] 01-21-2025 08:57-0400 Heart rate 75 /min Dr. Mathieu Virgen MD Work Phone: 6(019)707-354640 [place] [address] 01-21-2025 08:57-0400 Respiratory rate 20 /min Dr. Mathieu Virgen MD Work Phone: 9(721)352-391440 [place] [address] 01-21-2025 08:57-0400 SaO2% (BldA) [Mass fraction] 94 % Dr. Mathieu Virgen MD Work Phone: 1(632)134-676040 [place] [address] 01-21-2025 08:57-0400 Systolic blood pressure 124 mm[Hg] Dr. Mathieu Virgen MD Work Phone: [facility] 01-20-2025 03:54-0400 Body temperature 98.1 [degF] Dr. Mathieu Virgen MD Work Phone: [facility] 01-20-2025 03:54-0400 Diastolic blood pressure 59 mm[Hg] Dr. Mathieu Virgen MD Work Phone: 7(783)284-217602 [place] [address] 01-20-2025 03:54-0400 Heart rate 70 /min Dr. Mathieu Virgen MD Work Phone: 4(997)395-156840 [place] [address] 01-20-2025 03:54-0400 Respiratory rate 18 /min Dr. Mathieu Virgen MD Work Phone: 6(691)796-032440 [place] [address] 01-20-2025 03:54-0400 SaO2% (BldA) [Mass fraction] 95 % Dr. Mathieu Virgen MD Work Phone: [facility] 01-20-2025 03:54-0400 Systolic blood pressure 135 mm[Hg] Dr. Mathieu Virgen MD Work Phone: 9(019)547-093502 [place] [address] 01-19-2025 22:43-0400 Body mass index (BMI) [Ratio] 35.4 kg/m2 Dr. Mathieu Virgen MD Work Phone: [facility] 01-19-2025 22:43-0400 Body weight 122.[address] Mathieu Virgen MD Work Phone: [facility] 01-12-2025 16:57-0400 Body mass index (BMI) [Ratio] 35.36 kg/m2 Mathieu Virgen MD Work Phone: [facility] 01-12-2025 16:57-0400 Body weight 121.56 kg Mathieu Virgen MD Work Phone: [facility] 01-12-2025 16:57-0400 Diastolic blood pressure 62 mm[Hg] Mathieu Virgen MD Work Phone: [facility] 01-12-2025 16:57-0400 Heart rate 77 /min Mathieu Virgen MD Work Phone: [facility] 01-12-2025 16:57-0400 SaO2% (BldA) [Mass fraction] 93 % Mathieu Virgen MD Work Phone: [facility] 01-12-2025 16:57-0400 Systolic blood pressure 112 mm[Hg] Mathieu Virgen MD Work Phone: [facility] 12-11-2024 13:10-0400 Body mass index (BMI) [Ratio] 36 kg/m2 Dr. Mtahieu Virgen MD Work Phone: [facility] 12-11-2024 13:10-0400 Body weight 123.[address] Mathieu Virgen MD Work Phone: [facility] 12-11-2024 13:10-0400 Diastolic blood pressure 58 mm[Hg] Dr. Mathieu Virgen MD Work Phone: 0(520)997-587102 [place] [address] 12-11-2024 13:10-0400 Heart rate 72 /min Dr. Mathieu Virgen MD Work Phone: [facility] 12-11-2024 13:10-0400 Respiratory rate 18 /min Dr. Mathieu Virgen MD Work Phone: [facility] 12-11-2024 13:10-0400 Systolic blood pressure 113 mm[Hg] Dr. Mathieu Virgen MD Work Phone: [facility] 12-02-2024 15:36-0400 Body height 185.4 cm Mathieu Virgen MD Work Phone: [facility] 12-02-2024 15:36-0400 Body mass index (BMI) [Ratio] 36.02 kg/m2 Mathieu Virgen MD Work Phone: [facility] 12-02-2024 15:36-0400 Body weight 123.83 kg Mathieu Virgen MD Work Phone: [facility] 12-02-2024 15:36-0400 Diastolic blood pressure 54 mm[Hg] Mathieu Virgen MD Work Phone: [facility] 12-02-2024 15:36-0400 Heart rate 78 /min Mathieu Virgen MD Work Phone: [facility] 12-02-2024 15:36-0400 SaO2% (BldA) [Mass fraction] 95 % Mathieu Virgen MD Work Phone: [facility] 12-02-2024 15:36-0400 Systolic blood pressure 92 mm[Hg] Mathieu Virgen MD Work Phone: [facility] 11-03-2024 02:21-0500 Body temperature 98 [degF] Dr. Mathieu Virgen MD Work Phone: [facility] 11-03-2024 02:21-0500 Diastolic blood pressure 72 mm[Hg] Dr. Mathieu Virgen MD Work Phone: [facility] 11-03-2024 02:21-0500 Heart rate 72 /min Dr. Mathieu Virgen MD Work Phone: 0(502)225-639894 [address] 11-03-2024 02:21-0500 Respiratory rate 18 /min Dr. Mathieu Virgen MD Work Phone: [facility] 11-03-2024 02:21-0500 SaO2% (BldA) [Mass fraction] 96 % Dr. Mathieu Virgen MD Work Phone: [facility] 11-03-2024 02:21-0500 Systolic blood pressure 121 mm[Hg] Dr. Mathieu Virgen MD Work Phone: [facility] 11-03-2024 00:05-0500 Body height 185.[address] Mathieu Virgen MD Work Phone: [facility] 11-03-2024 00:05-0500 Body mass index (BMI) [Ratio] 35.9 kg/m2 Dr. Mathieu Virgen MD Work Phone: 5(978)963-273840 [place] [address] 11-03-2024 00:05-0500 Body weight 123.[address] Mathieu Virgen MD Work Phone: 5(755)228-052740 [place] [address] 10-31-2024 14:40-0500 Body mass index (BMI) [Ratio] 36.15 kg/m2 Sukh Knoble [employer] OPERATOR Work Phone: [facility] 10-31-2024 14:40-0500 Body weight 124.29 kg Sukh Hall [employer] OPERATOR Work Phone: [facility] 10-31-2024 14:40-0500 Diastolic blood pressure 68 mm[Hg] Sukh Hall [employer] OPERATOR Work Phone: [facility] 10-31-2024 14:40-0500 Heart rate 78 /min Sukh Hall [employer]NAL ELECT[employer]IAN.[employer] OPERATOR Work Phone: [facility] 10-31-2024 14:40-0500 Respiratory rate 18 /min Sukh Hall [employer] SIGNAL ELECT[employer]ICIAN.[employer] OPERATOR Work Phone: [facility] 10-31-2024 14:40-0500 SaO2% (BldA) [Mass fraction] 97 % Sukh Hall [employer]NAL ELECT[employer]ICIAN.[employer] OPERATOR Work Phone: [facility] 10-31-2024 14:40-0500 Systolic blood pressure 114 mm[Hg] Sukh Hall [employer]NAL ELECT[employer]IAN.[employer] OPERATOR Work Phone: 8(942)345-706368 [place] [address] 09-23-2024 15:27-0500 Body mass index (BMI) [Ratio] 37.2 kg/m2 Dr. Mathieu Virgen MD Work Phone: 3(608)965-120102 [place] [address] 09-23-2024 15:27-0500 Body weight 127.[address] Mathieu Virgen MD Work Phone: 6(733)984-606102 [place] [address] 09-23-2024 15:27-0500 Diastolic blood pressure 80 mm[Hg] Dr. Mathieu Virgen MD Work Phone: 4(465)912-953640 [place] [address] 09-23-2024 15:27-0500 Heart rate 74 /min Dr. Mathieu Virgen MD Work Phone: 4(685)049-893140 [place] [address] 09-23-2024 15:27-0500 Respiratory rate 18 /min Dr. Mathieu Virgen MD Work Phone: 7(928)031-070040 [place] [address] 09-23-2024 15:27-0500 SaO2% (BldA) [Mass fraction] 94 % Dr. Mathieu Virgen MD Work Phone: [facility] 09-23-2024 15:27-0500 Systolic blood pressure 162 mm[Hg] Dr. Mathieu Virgen MD Work Phone: [facility] 09-23-2024 14:42-0500 Body mass index (BMI) [Ratio] 37.21 kg/m2 Denisha Haagen [employer] OPERATOR Work Phone: [facility] 09-23-2024 14:42-0500 Body weight 127.91 kg Denisha Haagen [employer]IAN.[employer] OPERATOR Work Phone: [facility] 09-23-2024 14:42-0500 Diastolic blood pressure 68 mm[Hg] Denisha Haagen [employer] E[employer]IAN.[employer] OPERATOR Work Phone: [facility] 09-23-2024 14:42-0500 Heart rate 79 /min Denisha Haagen [employer]NAL E[employer]IAN.[employer] OPERATOR Work Phone: [facility] 09-23-2024 14:42-0500 Respiratory rate 16 /min Denisha Haagen [employer]NAL ELECT[employer]ICIAN.[employer] OPERATOR Work Phone: [facility] 09-23-2024 14:42-0500 SaO2% (BldA) [Mass fraction] 99 % Denisha Haagen [employer]NAL ELECTRICIAN.[employer]X OPERATOR Work Phone: [facility] 09-23-2024 14:42-0500 Systolic blood pressure 118 mm[Hg] Denisha Haagen [employer] ELECT[employer]IAN.[employer] OPERATOR Work Phone: [facility] 09-20-2024 19:33-0500 Body temperature 98.2 [degF] Dr. Mathieu Virgen MD Work Phone: [facility] 09-20-2024 19:33-0500 Diastolic blood pressure 72 mm[Hg] Dr. Mathieu Virgen MD Work Phone: [facility] 09-20-2024 19:33-0500 Heart rate 79 /min Dr. Mathieu Virgen MD Work Phone: 2(519)790-751902 [place] [address] 09-20-2024 19:33-0500 Respiratory rate 19 /min Dr. Mathieu Virgen MD Work Phone: 7(376)212-590640 [place] [address] 09-20-2024 19:33-0500 SaO2% (BldA) [Mass fraction] 96 % Dr. Mathieu Virgen MD Work Phone: 0(992)936-567240 [place] [address] 09-20-2024 19:33-0500 Systolic blood pressure 118 mm[Hg] Dr. Mathieu Virgen MD Work Phone: 7(832)890-471440 [place] [address] 09-20-2024 17:00-0500 Inhaled oxygen flow rate 2 L/min Dr. Mathieu Virgen MD Work Phone: 5(151)407-183340 [place] [address] 09-20-2024 15:46-0500 Body mass index (BMI) [Ratio] 37.8 kg/m2 Dr. Mathieu Virgen MD Work Phone: 5(672)650-853040 [place] [address] 09-20-2024 15:46-0500 Body weight 130.[address] Mathieu Virgen MD Work Phone: 5(242)733-172240 [place] [address] 09-03-2024 15:19-0500 Body mass index (BMI) [Ratio] 37.5 kg/m2 Dr. Mathieu Virgen MD Work Phone: 0(935)153-260540 [place] [address] 09-03-2024 15:19-0500 Body weight 129.[address] Mathieu Virgen MD Work Phone: 5(561)674-013340 [place] [address] 09-03-2024 15:19-0500 Diastolic blood pressure 69 mm[Hg] Dr. Mathieu Virgen MD Work Phone: 0(118)365-422840 [place] [address] 09-03-2024 15:19-0500 Heart rate 76 /min Dr. Mathieu Virgen MD Work Phone: 8(385)553-981240 [place] [address] 09-03-2024 15:19-0500 Inhaled oxygen flow rate 2 L/min Dr. Mathieu Virgen MD Work Phone: 5(763)539-339840 [place] [address] 09-03-2024 15:19-0500 Respiratory rate 18 /min Dr. Mathieu Virgen MD Work Phone: 2(614)112-189640 [place] [address] 09-03-2024 15:19-0500 Systolic blood pressure 109 mm[Hg] Dr. Mathieu Virgen MD Work Phone: 8(251)549-888340 [place] [address] 09-01-2024 07:39-0500 Body temperature 98.2 [degF] Dr. Mathieu Virgen MD Work Phone: 5(952)915-143940 [place] [address] 09-01-2024 07:39-0500 Diastolic blood pressure 78 mm[Hg] Dr. Mathieu Virgen MD Work Phone: 0(251)608-640040 [place] [address] 09-01-2024 07:39-0500 Heart rate 65 /min Dr. Mathieu Virgen MD Work Phone: 0(612)722-462440 [place] [address] 09-01-2024 07:39-0500 Respiratory rate 18 /min Dr. Mathieu Virgen MD Work Phone: 2(483)865-257440 [place] [address] 09-01-2024 07:39-0500 SaO2% (BldA) [Mass fraction] 97 % Dr. Mathieu Virgen MD Work Phone: 7(843)829-189640 [place] [address] 09-01-2024 07:39-0500 Systolic blood pressure 101 mm[Hg] Dr. Mathieu Virgen MD Work Phone: 2(369)809-601540 [place] [address] 09-01-2024 06:00-0500 Inhaled oxygen flow rate 2 L/min Dr. Mathieu Virgen MD Work Phone: 3(744)637-178840 [place] [address] 09-01-2024 04:38-0500 Body mass index (BMI) [Ratio] 38.7 kg/m2 Dr. Mathieu Virgen MD Work Phone: 1(598)440-326140 [place] [address] 09-01-2024 04:38-0500 Body weight [address] Mathieu Virgen MD Work Phone: 0(201)632-387840 [place] [address] 08-13-2024 13:17-0500 Body mass index (BMI) [Ratio] 38.1 kg/m2 Dr. Mathieu Virgen MD Work Phone: 7(798)675-157340 [place] [address] 08-13-2024 13:17-0500 Body weight 131.[address] Mathieu Virgen MD Work Phone: 4(882)504-852940 [place] [address] 08-13-2024 13:17-0500 Diastolic blood pressure 57 mm[Hg] Dr. Mathieu Virgen MD Work Phone: [facility] 08-13-2024 13:17-0500 Heart rate 73 /min Dr. Mathieu Virgen MD Work Phone: [facility] 08-13-2024 13:17-0500 Respiratory rate 16 /min Dr. Mathieu Virgen MD Work Phone: [facility] 08-13-2024 13:17-0500 Systolic blood pressure 99 mm[Hg] Dr. Mathieu Virgen MD Work Phone: [facility] 07-29-2024 12:14-0500 Diastolic blood pressure 50 mm[Hg] Julianna Suppan [employer] ELECT[employer]IAN.CBX OPERATOR Work Phone: [facility] 07-29-2024 12:14-0500 Systolic blood pressure 104 mm[Hg] Julianna Suppan [employer] SIGNAL ELECTRICIAN.CBX OPERATOR Work Phone: [facility] 07-29-2024 11:29-0500 Body mass index (BMI) [Ratio] 39.32 kg/m2 Julianna Suppan [employer] SIGNAL ELECTRICIAN.CBX OPERATOR Work Phone: [facility] 07-29-2024 11:29-0500 Body weight 135.17 kg Julianna Suppan [employer] SIGNAL ELECTRICIAN.CBX OPERATOR Work Phone: [facility] 07-29-2024 11:29-0500 Heart rate 70 /min Julianna Suppan [employer] SIGNAL ELECTRICIAN.CBX OPERATOR Work Phone: [facility] 07-29-2024 11:29-0500 Respiratory rate 24 /min Julianna Suppan [employer] SIGNAL ELECTRICIAN.CBX OPERATOR Work Phone: [facility] 07-29-2024 11:29-0500 SaO2% (BldA) [Mass fraction] 92 % Julianna Suppan [employer] SIGNAL ELECTRICIAN.CBX OPERATOR Work Phone: [facility] Comment on above: 2 liters 06-23-2024 14:37-0400 Body mass index (BMI) [Ratio] 39.56 kg/m2 Abril Duval [employer] SIGNAL ELECTRICIAN.CBX OPERATOR Work Phone: [facility] 06-23-2024 14:37-0400 Body weight 136 kg Abril Simin [employer] SIGNAL ELECTRICIAN.CBX OPERATOR Work Phone: [facility] 06-23-2024 14:37-0400 Diastolic blood pressure 77 mm[Hg] Abril Simin [employer] SIGNAL ELECTRICIAN.CBX OPERATOR Work Phone: [facility] 06-23-2024 14:37-0400 Heart rate 82 /min Abril Simin [employer] SIGNAL ELECTRICIAN.CBX OPERATOR Work Phone: [facility] 06-23-2024 14:37-0400 Respiratory rate 18 /min Abril Simin [employer] SIGNAL ELECTRICIAN.CBX OPERATOR Work Phone: [facility] 06-23-2024 14:37-0400 SaO2% (BldA) [Mass fraction] 95 % Abril Simin [employer] SIGNAL ELECTRICIAN.CBX OPERATOR Work Phone: [facility] 06-23-2024 14:37-0400 Systolic blood pressure 155 mm[Hg] Abril Simin [employer] SIGNAL ELECTRICIAN.CBX OPERATOR Work Phone: [facility] 06-20-2024 15:38-0400 Body height 185.4 cm Mathieu Virgen MD Work Phone: [facility] 06-20-2024 15:38-0400 Body mass index (BMI) [Ratio] 39.76 kg/m2 Mathieu Virgen MD Work Phone: [facility] 06-20-2024 15:38-0400 Body weight 136.71 kg Mathieu Virgen MD Work Phone: [facility] 06-20-2024 15:38-0400 Diastolic blood pressure 56 mm[Hg] Mathieu Virgen MD Work Phone: [facility] 06-20-2024 15:38-0400 Heart rate 80 /min Mathieu Virgen MD Work Phone: [facility] 06-20-2024 15:38-0400 SaO2% (BldA) [Mass fraction] 94 % Mathieu Virgen MD Work Phone: [facility] 06-20-2024 15:38-0400 Systolic blood pressure 132 mm[Hg] Mathieu Virgen MD Work Phone: [facility] 04-09-2024 14:25-0400 Body mass index (BMI) [Ratio] 40.9 kg/m2 [facility] [employer] SIGNAL ELECTRICIAN.CBX OPERATOR Work Phone: [facility] 04-09-2024 14:25-0400 Body temperature 98.8 [degF] [facility] RAIL[employer]AY SIGNAL ELECTRICIAN.CBX OPERATOR Work Phone: [facility] 04-09-2024 14:25-0400 Body weight 140.6 kg [facility] RA[employer]AY SIGNAL ELECTRICIAN.CBX OPERATOR Work Phone: [facility] 04-09-2024 14:25-0400 Diastolic blood pressure 84 mm[Hg] [facility] RA[employer]WAY SIGNAL ELECTRICIAN.CBX OPERATOR Work Phone: [facility] 04-09-2024 14:25-0400 Heart rate 94 /min Andrew Vinny[facility] RAILWAY SIGNAL ELECTRICIAN.CBX OPERATOR Work Phone: [facility] 04-09-2024 14:25-0400 Respiratory rate 20 /min [facility] RAIL[employer]AY SIGNAL ELECTRICIAN.CBX OPERATOR Work Phone: [facility] 04-09-2024 14:25-0400 SaO2% (BldA) [Mass fraction] 93 % [facility] RAIL[employer]AY SIGNAL ELECTRICIAN.CBX OPERATOR Work Phone: [facility] 04-09-2024 14:25-0400 Systolic blood pressure 128 mm[Hg] Andrew Vinnyday [facility] RAIL[employer]AY SIGNAL ELECTRICIAN.CBX OPERATOR Work Phone: [facility] 02-28-2024 11:50-0400 Diastolic blood pressure 86 mm[Hg] NA Travis PA-C Work Phone: [facility] 02-28-2024 11:50-0400 Systolic blood pressure 148 mm[Hg] NA Travis PA-C Work Phone: [facility] 02-28-2024 11:00-0400 Body mass index (BMI) [Ratio] 40.69 kg/m2 NA Travis PA-C Work Phone: [facility] 02-28-2024 11:00-0400 Body weight 139.89 kg NA Travis PA-C Work Phone: [facility] 02-28-2024 11:00-0400 Heart rate 85 /min NA Travis PA-C Work Phone: [facility] 02-28-2024 11:00-0400 SaO2% (BldA) [Mass fraction] 94 % NA Travis PA-C Work Phone: [facility] 02-04-2024 11:33-0400 Body mass index (BMI) [Ratio] 39.18 kg/m2 NA Travis PA-C Work Phone: [facility] 02-04-2024 11:33-0400 Body weight 134.72 kg NA Travis PA-C Work Phone: [facility] 02-04-2024 11:33-0400 Diastolic blood pressure 69 mm[Hg] NA Travis PA-C Work Phone: [facility] 02-04-2024 11:33-0400 Heart rate 73 /min NA Travis PA-C Work Phone: [facility] 02-04-2024 11:33-0400 Respiratory rate 18 /min NA Travis PA-C Work Phone: [facility] 02-04-2024 11:33-0400 SaO2% (BldA) [Mass fraction] 94 % NA Travis PA-C Work Phone: [facility] 02-04-2024 11:33-0400 Systolic blood pressure 113 mm[Hg] NA Travis PA-C Work Phone: [facility] 12-25-2023 13:44-0400 Body weight 130.18 kg Mathieu Virgen MD Work Phone: [facility] 12-25-2023 13:44-0400 Diastolic blood pressure 80 mm[Hg] Mathieu Virgen MD Work Phone: [facility] 12-25-2023 13:44-0400 Heart rate 73 /min Mathieu Virgen MD Work Phone: [facility] 12-25-2023 13:44-0400 Respiratory rate 18 /min Mathieu Virgen MD Work Phone: [facility] 12-25-2023 13:44-0400 SaO2% (BldA) [Mass fraction] 96 % Mathieu Virgen MD Work Phone: [facility] 12-25-2023 13:44-0400 Systolic blood pressure 122 mm[Hg] Mathieu Virgen MD Work Phone: [facility] 09-22-2023 14:49-0500 Diastolic blood pressure 56 mm[Hg] [facility] 09-22-2023 14:49-0500 Heart rate 75 /min [facility] 09-22-2023 14:49-0500 Respiratory rate 16 /min [facility] 09-22-2023 14:49-0500 SaO2% (BldA) [Mass fraction] 96 % [facility] 09-22-2023 14:49-0500 Systolic blood pressure 121 mm[Hg] [facility] 09-22-2023 10:13-0500 Body height 185.42 cm [facility] 09-22-2023 10:13-0500 Body mass index (BMI) [Ratio] 38.2 kg/m2 [facility] 09-22-2023 10:13-0500 Body temperature 96.9 [degF] [facility] 09-22-2023 10:13-0500 Body weight 131.3 kg [facility] 07-23-2023 14:18-0500 Diastolic blood pressure 70 mm[Hg] Pio Nicole MD Work Phone: [facility] 07-23-2023 14:18-0500 Heart rate 64 /min Pio Nicole MD Work Phone: [facility] 07-23-2023 14:18-0500 Respiratory rate 20 /min Pio Nicole MD Work Phone: [facility] 07-23-2023 14:18-0500 SaO2% (BldA) [Mass fraction] 96 % Pio Nicole MD Work Phone: [facility] 07-23-2023 14:18-0500 Systolic blood pressure 128 mm[Hg] Pio Nicole MD Work Phone: [facility] 06-09-2023 10:41-0400 Body temperature 98.6 [degF] Pio Nicole MD Work Phone: [facility] 06-09-2023 10:41-0400 Body weight 132.45 kg Pio Nicole MD Work Phone: [facility] 06-09-2023 10:41-0400 Diastolic blood pressure 68 mm[Hg] Pio Nicole MD Work Phone: [facility] 06-09-2023 10:41-0400 Heart rate 79 /min Pio Nicole MD Work Phone: [facility] 06-09-2023 10:41-0400 Respiratory rate 30 /min Pio Nicole MD Work Phone: [facility] 06-09-2023 10:41-0400 SaO2% (BldA) [Mass fraction] 93 % Pio Nicole MD Work Phone: [facility] 06-09-2023 10:41-0400 Systolic blood pressure 124 mm[Hg] Pio Nicole MD Work Phone: [facility] 06-06-2023 10:25-0400 Body height 185.4 cm Mathieu Virgen MD Work Phone: [facility] 06-06-2023 10:25-0400 Body weight 134.17 kg Mathieu Virgen MD Work Phone: [facility] 06-06-2023 10:25-0400 Diastolic blood pressure 64 mm[Hg] Mathieu Virgen MD Work Phone: [facility] 06-06-2023 10:25-0400 Heart rate 77 /min Mathieu Virgen MD Work Phone: [facility] 06-06-2023 10:25-0400 SaO2% (BldA) [Mass fraction] 97 % Mathieu Virgen MD Work Phone: [facility] 06-06-2023 10:25-0400 Systolic blood pressure 130 mm[Hg] Mathieu Virgen MD Work Phone: [facility] 05-18-2023 15:03-0400 Body height 185.4 cm NA Travis PA-C Work Phone: [facility] 05-18-2023 15:03-0400 Body temperature 97.11 [degF] NA Travis PA-C Work Phone: [facility] 05-18-2023 15:03-0400 Body weight 131 kg NA Travis PA-C Work Phone: [facility] 05-18-2023 15:03-0400 Diastolic blood pressure 64 mm[Hg] NA Travis PA-C Work Phone: [facility] 05-18-2023 15:03-0400 Heart rate 72 /min NA Travis PA-C Work Phone: [facility] 05-18-2023 15:03-0400 SaO2% (BldA) [Mass fraction] 96 % NA Travis PA-C Work Phone: [facility] 05-18-2023 15:03-0400 Systolic blood pressure 104 mm[Hg] NA Travis PA-C Work Phone: [facility] 05-01-2023 14:23-0400 Body temperature 97.9 [degF] NA Travis PA-C Work Phone: [facility] 05-01-2023 14:23-0400 Diastolic blood pressure 70 mm[Hg] NA Travis PA-C Work Phone: [facility] 05-01-2023 14:23-0400 Heart rate 80 /min NA Travis PA-C Work Phone: [facility] 05-01-2023 14:23-0400 Respiratory rate 20 /min NA Travis PA-C Work Phone: [facility] 05-01-2023 14:23-0400 SaO2% (BldA) [Mass fraction] 96 % NA Travis PA-C Work Phone: [facility] 05-01-2023 14:23-0400 Systolic blood pressure 118 mm[Hg] NA Travis PA-C Work Phone: [facility] 04-30-2023 14:11-0400 Body weight 132.9 kg NA Travis PA-C Work Phone: [facility] 04-30-2023 14:11-0400 Diastolic blood pressure 68 mm[Hg] NA Travis PA-C Work Phone: [facility] 04-30-2023 14:11-0400 Heart rate 75 /min NA Travis PA-C Work Phone: [facility] 04-30-2023 14:11-0400 Respiratory rate 18 /min NA Travis PA-C Work Phone: [facility] 04-30-2023 14:11-0400 SaO2% (BldA) [Mass fraction] 95 % NA Travis PA-C Work Phone: [facility] 04-30-2023 14:11-0400 Systolic blood pressure 114 mm[Hg] NA Travis PA-C Work Phone: [facility] 03-31-2023 04:41-0400 Diastolic blood pressure 68 mm[Hg] Dr. Mathieu Virgen Work Phone: [facility] 03-31-2023 04:41-0400 Heart rate 65 /min Dr. Mathieu Virgen Work Phone: [facility] 03-31-2023 04:41-0400 Respiratory rate 16 /min Dr. Mathieu Virgen Work Phone: [facility] 03-31-2023 04:41-0400 SaO2% (BldA) [Mass fraction] 98 % Dr. Mathieu Virgen Work Phone: [facility] 03-31-2023 04:41-0400 Systolic blood pressure 138 mm[Hg] Dr. Mathieu Virgen Work Phone: [facility] 03-31-2023 00:17-0400 Body height 184.[address] Mathieu Virgen Work Phone: [facility] 03-31-2023 00:17-0400 Body temperature 97.8 [degF] Dr. Mathieu Virgen Work Phone: [facility] 03-05-2023 15:22-0400 Body temperature 97.3 [degF] Andrew Guallpa [employer] SIGNAL ELECTRICIAN.CBX OPERATOR Work Phone: [facility] 03-05-2023 15:22-0400 Body weight 138.26 kg Andrewdeirdre Guallpa [employer] SIGNAL ELECTRICIAN.CBX OPERATOR Work Phone: [facility] 03-05-2023 15:22-0400 Diastolic blood pressure 62 mm[Hg] Andrew Guallpa [employer]ILW[employer] SIGNAL ELECTRICIAN.CBX OPERATOR Work Phone: [facility] 03-05-2023 15:22-0400 Heart rate 82 /min Andrew Guallpa [employer]ILW[employer] SIGNAL ELECTRICIAN.CBX OPERATOR Work Phone: [facility] 03-05-2023 15:22-0400 Respiratory rate 20 /min Andrewdeirdre Guallpa [employer] SIGNAL ELECTRICIAN.CBX OPERATOR Work Phone: [facility] 03-05-2023 15:22-0400 SaO2% (BldA) [Mass fraction] 94 % Andrew Guallpa [employer]IL[employer] SIGNAL ELECTRICIAN.CBX OPERATOR Work Phone: [facility] 03-05-2023 15:22-0400 Systolic blood pressure 120 mm[Hg] Andrew Guallpa RAILW[employer] SIGNAL ELECTRICIAN.CBX OPERATOR Work Phone: [facility] 03-02-2023 16:23-0400 Body weight 137.44 kg Mathieu Virgen MD Work Phone: [facility] 03-02-2023 16:23-0400 Diastolic blood pressure 60 mm[Hg] Mathieu Virgen MD Work Phone: [facility] 03-02-2023 16:23-0400 Heart rate 76 /min Mathieu Virgen MD Work Phone: [facility] 03-02-2023 16:23-0400 SaO2% (BldA) [Mass fraction] 93 % Mathieu Virgen MD Work Phone: [facility] 03-02-2023 16:23-0400 Systolic blood pressure 112 mm[Hg] Mathieu Virgen MD Work Phone: [facility] 03-01-2023 22:57-0400 Diastolic blood pressure 67 mm[Hg] Dr. Mathieu Vrigen Work Phone: [facility] 03-01-2023 22:57-0400 Heart rate 73 /min Dr. Mathieu Virgen Work Phone: [facility] 03-01-2023 22:57-0400 Respiratory rate 16 /min Dr. Mathieu Virgen Work Phone: [facility] 03-01-2023 22:57-0400 SaO2% (BldA) [Mass fraction] 95 % Dr. Mathieu Virgen Work Phone: [facility] 03-01-2023 22:57-0400 Systolic blood pressure 132 mm[Hg] Dr. Mathieu Virgen Work Phone: 2(396)795-729540 [place] [address] 03-01-2023 20:28-0400 Body height 185.[address] Mathieu Virgen Work Phone: 3(205)826-816840 [place] [address] 03-01-2023 20:28-0400 Body mass index (BMI) [Ratio] 40 kg/m2 Dr. Mathieu Virgen Work Phone: 6(870)670-022502 [place] [address] 03-01-2023 20:28-0400 Body temperature 97.8 [degF] Dr. Mathieu Virgen Work Phone: 1(224)822-810040 [place] [address] 03-01-2023 20:28-0400 Body weight 137.[address] Mathieu Virgen Work Phone: 7(449)766-985940 [place] [address] 03-01-2023 07:54-0400 Body mass index (BMI) [Ratio] 39.2 kg/m2 Dr. Mathieu Virgen Work Phone: 2(148)860-406840 [place] [address] 03-01-2023 07:54-0400 Body temperature 97.7 [degF] Dr. Mathieu Virgen Work Phone: 8(764)607-616340 [place] [address] 03-01-2023 07:54-0400 Body weight 134.[address] Mathieu Virgen Work Phone: 4(869)888-365640 [place] [address] 03-01-2023 07:54-0400 Diastolic blood pressure 59 mm[Hg] Dr. Mathieu Virgen Work Phone: 6(917)040-800440 [place] [address] 03-01-2023 07:54-0400 Heart rate 84 /min Dr. Mathieu Virgen Work Phone: 3(192)589-589640 [place] [address] 03-01-2023 07:54-0400 Respiratory rate 20 /min Dr. Mathieu Virgen Work Phone: 3(809)112-198940 [place] [address] 03-01-2023 07:54-0400 SaO2% (BldA) [Mass fraction] 91 % Dr. Mathieu Virgen Work Phone: 5(365)667-854240 [place] [address] 03-01-2023 07:54-0400 Systolic blood pressure 131 mm[Hg] Dr. Mathieu Virgen Work Phone: 2(730)867-350840 [place] [address] 02-25-2023 03:07-0400 Diastolic blood pressure 75 mm[Hg] Dr. Mathieu Virgen Work Phone: 3(745)879-699540 [place] [address] 02-25-2023 03:07-0400 Heart rate 66 /min Dr. Mathieu Virgen Work Phone: 9(547)450-442640 [place] [address] 02-25-2023 03:07-0400 Respiratory rate 22 /min Dr. Mathieu Virgen Work Phone: 8(480)733-704840 [place] [address] 02-25-2023 03:07-0400 SaO2% (BldA) [Mass fraction] 96 % Dr. Mathieu Virgen Work Phone: 0(840)811-781340 [place] [address] 02-25-2023 03:07-0400 Systolic blood pressure 153 mm[Hg] Dr. Mathieu Virgen Work Phone: 2(898)090-808640 [place] [address] 02-24-2023 21:56-0400 Body mass index (BMI) [Ratio] 40.8 kg/m2 Dr. Mathieu Virgen Work Phone: [facility] 02-24-2023 21:56-0400 Body temperature 96.6 [degF] Dr. Mathieu Virgen Work Phone: [facility] 02-24-2023 21:56-0400 Body weight 140.[address] Mathieu Virgen Work Phone: [facility] 02-16-2023 14:38-0400 Diastolic blood pressure 80 mm[Hg] Denisha Haagen [employer]NAL ELECTRICIAN.CBX OPERATOR Work Phone: [facility] 02-16-2023 14:38-0400 Heart rate 82 /min Denisha Haagen [employer] SIGNAL ELECTRICIAN.CBX OPERATOR Work Phone: [facility] 02-16-2023 14:38-0400 Respiratory rate 16 /min Denisha Haagen [employer] SIGNAL ELECTRICIAN.CBX OPERATOR Work Phone: [facility] 02-16-2023 14:38-0400 SaO2% (BldA) [Mass fraction] 94 % Denisha Haagen [employer] SIGNAL ELECTRICIAN.CBX OPERATOR Work Phone: [facility] 02-16-2023 14:38-0400 Systolic blood pressure 142 mm[Hg] Denisha Haagen [employer] SIGNAL ELECTRICIAN.CBX OPERATOR Work Phone: [facility] 01-19-2023 14:18-0400 Body weight 137.44 kg Mathieu Virgen MD Work Phone: [facility] 01-19-2023 14:18-0400 Diastolic blood pressure 72 mm[Hg] Mathieu Virgen MD Work Phone: [facility] 01-19-2023 14:18-0400 Heart rate 86 /min Mathieu Virgen MD Work Phone: [facility] 01-19-2023 14:18-0400 Respiratory rate 16 /min Mathieu Virgen MD Work Phone: [facility] 01-19-2023 14:18-0400 Systolic blood pressure 134 mm[Hg] Mathieu Virgen MD Work Phone: [facility] 03-15-2023 09:33-0400 Body height 185.4 cm Mathieu Virgen MD Work Phone: [facility] 11-29-2022 09:33-0400 Body weight 137.89 kg Mathieu Virgen MD Work Phone: [facility] 11-29-2022 09:33-0400 Diastolic blood pressure 68 mm[Hg] Mathieu Virgen MD Work Phone: [facility] 11-29-2022 09:33-0400 Heart rate 85 /min Mathieu Virgen MD Work Phone: [facility] 11-29-2022 09:33-0400 SaO2% (BldA) [Mass fraction] 96 % Mathieu Virgen MD Work Phone: [facility] 11-29-2022 09:33-0400 Systolic blood pressure 136 mm[Hg] Mathieu Virgen MD Work Phone: [facility] 11-21-2022 14:44-0500 Body temperature 97.7 [degF] Dr. Mathieu Virgen Work Phone: [facility] 11-21-2022 14:44-0500 Diastolic blood pressure 74 mm[Hg] Dr. Mathieu Virgen Work Phone: [facility] 11-21-2022 14:44-0500 Heart rate 78 /min Dr. Mathieu Virgen Work Phone: [facility] 11-21-2022 14:44-0500 Respiratory rate 16 /min Dr. Mathieu Virgen Work Phone: [facility] 11-21-2022 14:44-0500 SaO2% (BldA) [Mass fraction] 94 % Dr. Mathieu Virgen Work Phone: [facility] 11-21-2022 14:44-0500 Systolic blood pressure 145 mm[Hg] Dr. Mathieu Virgen Work Phone: [facility] 11-21-2022 08:28-0500 Body height 185.[address] Mathieu Virgen Work Phone: [facility] 11-21-2022 08:28-0500 Body mass index (BMI) [Ratio] 39.9 kg/m2 Dr. Mathiue Virgen Work Phone: 9(746)637-464740 [place] [address] 11-21-2022 08:28-0500 Body weight 137.[address] Mathieu Virgen Work Phone: 2(171)808-770640 [place] [address] 11-21-2022 01:50-0500 Diastolic blood pressure 77 mm[Hg] Dr. Mathieu Virgen Work Phone: 3(207)691-109740 [place] [address] 11-21-2022 01:50-0500 Heart rate 89 /min Dr. Mathieu Virgen Work Phone: 5(002)811-170940 [place] [address] 11-21-2022 01:50-0500 Respiratory rate 15 /min Dr. Mathieu Virgen Work Phone: 9(880)087-794740 [place] [address] 11-21-2022 01:50-0500 SaO2% (BldA) [Mass fraction] 99 % Dr. Mathieu Virgen Work Phone: 2(858)494-042340 [place] [address] 11-21-2022 01:50-0500 Systolic blood pressure 150 mm[Hg] Dr. Mathieu Virgen Work Phone: 8(422)525-665540 [place] [address] 11-20-2022 23:59-0500 Body mass index (BMI) [Ratio] 40.8 kg/m2 Dr. Mathieu Virgen Work Phone: 3(720)469-510740 [place] [address] 11-20-2022 23:59-0500 Body temperature 97.9 [degF] Dr. Mathieu Virgen Work Phone: 9(525)991-296240 [place] [address] 11-20-2022 23:59-0500 Body weight 140.[address] Mathieu Virgen Work Phone: 9(067)198-113540 [place] [address] 10-26-2022 11:24-0500 Body weight 138.[address] Mathieu Virgen Work Phone: 1(396)898-651940 [place] [address] 10-26-2022 11:24-0500 Diastolic blood pressure 66 mm[Hg] Dr. Mathieu Virgen Work Phone: 9(732)827-552440 [place] [address] 10-26-2022 11:24-0500 Heart rate 75 /min Dr. Mathieu Virgen Work Phone: [facility] 10-26-2022 11:24-0500 Respiratory rate 24 /min Dr. Mathieu Virgen Work Phone: [facility] 10-26-2022 11:24-0500 Systolic blood pressure 104 mm[Hg] Dr. Mathieu Virgen Work Phone: [facility] 08-08-2022 08:49-0500 Body height 185.[address] Mathieu Virgen Work Phone: [facility] Work Phone: 08-08-2022 08:49-0500 Body mass index (BMI) [Ratio] 39.5 kg/m2 Dr. Mathieu Virgen Work Phone: [facility] 08-08-2022 08:49-0500 Body temperature 97.5 [degF] Dr. Mathieu Virgen Work Phone: 6(470)887-979902 [place] [address] 08-08-2022 08:49-0500 Body weight 136.[address] Mathieu Virgen Work Phone: 7(249)860-286794 [address] 08-08-2022 08:49-0500 Diastolic blood pressure 65 mm[Hg] Dr. Mathieu Virgen Work Phone: [facility] 08-08-2022 08:49-0500 Heart rate 86 /min Dr. Mathieu Virgen Work Phone: [facility] 08-08-2022 08:49-0500 Respiratory rate 14 /min Dr. Mathieu Virgen Work Phone: [facility] 08-08-2022 08:49-0500 SaO2% (BldA) [Mass fraction] 96 % Dr. Mathieu Virgen Work Phone: [facility] 08-08-2022 08:49-0500 Systolic blood pressure 160 mm[Hg] Dr. Mathieu Virgen Work Phone: [facility] 05-31-2022 10:38-0400 Body height 185.4 cm Mathieu Virgen MD Work Phone: [facility] 05-31-2022 10:38-0400 Body weight 136.08 kg Mathieu Virgen MD Work Phone: [facility] 05-31-2022 10:38-0400 Diastolic blood pressure 68 mm[Hg] Mathieu Virgen MD Work Phone: [facility] 05-31-2022 10:38-0400 Heart rate 87 /min Mathieu Virgen MD Work Phone: [facility] 05-31-2022 10:38-0400 SaO2% (BldA) [Mass fraction] 94 % Mathieu Virgen MD Work Phone: [facility] 05-31-2022 10:38-0400 Systolic blood pressure 136 mm[Hg] Mathieu Virgen MD Work Phone: [facility] 05-04-2022 08:51-0400 Body mass index (BMI) [Ratio] 39.8 kg/m2 Dr. Mathieu Virgen Work Phone: [facility] Work Phone: 05-04-2022 08:51-0400 Body weight 136.[address] Mathieu Virgen Work Phone: [facility] Work Phone: 05-04-2022 08:51-0400 Diastolic blood pressure 69 mm[Hg] Dr. Mathieu Virgen Work Phone: [facility] Work Phone: 05-04-2022 08:51-0400 Heart rate 80 /min Dr. Mathieu Virgen Work Phone: [facility] Work Phone: 05-04-2022 08:51-0400 Respiratory rate 22 /min Dr. Mathieu Virgen Work Phone: [facility] Work Phone: 05-04-2022 08:51-0400 Systolic blood pressure 112 mm[Hg] Dr. Mathieu Virgen Work Phone: [facility] Work Phone: 04-08-2022 19:02-0400 Diastolic blood pressure 54 mm[Hg] Dr. Mathieu Virgen Work Phone: [facility] Work Phone: 04-08-2022 19:02-0400 Heart rate 78 /min Dr. Mathieu Virgen Work Phone: [facility] Work Phone: 04-08-2022 19:02-0400 Systolic blood pressure 137 mm[Hg] Dr. Mathieu Virgen Work Phone: [facility] Work Phone: 04-08-2022 18:04-0400 Respiratory rate 16 /min Dr. Mathieu Virgen Work Phone: [facility] Work Phone: 04-08-2022 18:04-0400 SaO2% (BldA) [Mass fraction] 96 % Dr. Mathieu Virgen Work Phone: [facility] Work Phone: 04-08-2022 15:02-0400 Body height 185.[address] Mathieu Virgen Work Phone: [facility] Work Phone: 04-08-2022 15:02-0400 Body mass index (BMI) [Ratio] 39.8 kg/m2 Dr. Mathieu Virgen Work Phone: [facility] Work Phone: 04-08-2022 15:02-0400 Body temperature 97.8 [degF] Dr. Mathieu Virgen Work Phone: [facility] Work Phone: 04-08-2022 15:02-0400 Body weight [address] Mathieu Virgen Work Phone: [facility] Work Phone: 04-08-2022 14:43-0400 Body temperature 97.5 [degF] Andrew Guallpa APRN.CNP Work Phone: [facility] 04-08-2022 14:43-0400 Body weight 137.26 kg Andrew Pendlebury [employer]NAL ELECTRICIAN.CBX OPERATOR Work Phone: [facility] 04-08-2022 14:43-0400 Diastolic blood pressure 60 mm[Hg] Andrew Pendlebury RAILWAY SIGNAL ELECTRICIAN.CBX OPERATOR Work Phone: [facility] 04-08-2022 14:43-0400 Heart rate 80 /min Andrew Pendlebury RAILWAY SIGNAL ELECTRICIAN.CBX OPERATOR Work Phone: [facility] 04-08-2022 14:43-0400 Respiratory rate 21 /min [facility] [employer]NAL ELECTRICIAN.CBX OPERATOR Work Phone: [facility] 04-08-2022 14:43-0400 SaO2% (BldA) [Mass fraction] 97 % [facility] [employer] SIGNAL ELECTRICIAN.CBX OPERATOR Work Phone: [facility] 04-08-2022 14:43-0400 Systolic blood pressure 136 mm[Hg] Andrew [facility] [employer] SIGNAL ELECTRICIAN.CBX OPERATOR Work Phone: [facility] 03-03-2022 10:26-0400 Body weight 136.53 kg Mathieu Virgen MD Work Phone: [facility] 03-03-2022 10:26-0400 Diastolic blood pressure 74 mm[Hg] Mathieu Vigren MD Work Phone: [facility] 03-03-2022 10:26-0400 Heart rate 78 /min Mathieu Virgen MD Work Phone: [facility] 03-03-2022 10:26-0400 SaO2% (BldA) [Mass fraction] 95 % Mathieu Virgen MD Work Phone: [facility] 03-03-2022 10:26-0400 Systolic blood pressure 124 mm[Hg] Mathieu Virgen MD Work Phone: [facility] 03-02-2022 10:33-0400 Body mass index (BMI) [Ratio] 39.2 kg/m2 Dr. Mathieu Virgen Work Phone: [facility] Work Phone: 03-02-2022 10:33-0400 Body temperature 97.1 [degF] Dr. Mathieu Virgen Work Phone: [facility] Work Phone: 03-02-2022 10:33-0400 Body weight 134.[address] Mathieu Virgen Work Phone: [facility] Work Phone: 03-02-2022 10:33-0400 Diastolic blood pressure 52 mm[Hg] Dr. Mathieu Virgen Work Phone: [facility] Work Phone: 03-02-2022 10:33-0400 Heart rate 83 /min Dr. Mathieu Virgen Work Phone: [facility] Work Phone: 03-02-2022 10:33-0400 Respiratory rate 17 /min Dr. Mathieu Virgen Work Phone: [facility] Work Phone: 03-02-2022 10:33-0400 SaO2% (BldA) [Mass fraction] 93 % Dr. Mathieu Virgen Work Phone: [facility] Work Phone: 03-02-2022 10:33-0400 Systolic blood pressure 100 mm[Hg] Dr. Mathieu Virgen Work Phone: [facility] Work Phone: 01-30-2022 11:26-0400 Body mass index (BMI) [Ratio] 40.7 kg/m2 Dr. Mathieu Virgen Work Phone: [facility] Work Phone: 01-30-2022 11:26-0400 Body temperature 97.9 [degF] Dr. Mathieu Virgen Work Phone: [facility] Work Phone: 01-30-2022 11:26-0400 Body weight 140.[address] Mathieu Virgen Work Phone: [facility] Work Phone: 01-30-2022 11:26-0400 Diastolic blood pressure 78 mm[Hg] Dr. Mathieu Virgen Work Phone: [facility] Work Phone: 01-30-2022 11:26-0400 Heart rate 83 /min Dr. Mathieu Virgen Work Phone: [facility] Work Phone: 01-30-2022 11:26-0400 Respiratory rate 22 /min Dr. Mathieu Virgen Work Phone: [facility] Work Phone: 01-30-2022 11:26-0400 SaO2% (BldA) [Mass fraction] 93 % Dr. Mathieu Virgen Work Phone: [facility] Work Phone: 01-30-2022 11:26-0400 Systolic blood pressure 126 mm[Hg] Dr. Mathieu Virgen Work Phone: [facility] Work Phone: 01-30-2022 11:26-0400 Body height 185.[address] Mathieu Virgen Work Phone: [facility] Work Phone: 01-30-2022 11:26-0400 Body mass index (BMI) [Ratio] 40.7 kg/m2 Dr. Mathieu Virgen Work Phone: [facility] Work Phone: 01-30-2022 11:26-0400 Body temperature 97.9 [degF] Dr. Mathieu Virgen Work Phone: [facility] Work Phone: 01-30-2022 11:26-0400 Body weight 140.[address] Mathieu Virgen Work Phone: [facility] Work Phone: 01-30-2022 11:26-0400 Diastolic blood pressure 78 mm[Hg] Dr. Mathieu Virgen Work Phone: [facility] Work Phone: 01-30-2022 11:26-0400 Heart rate 83 /min Dr. Mathieu Virgen Work Phone: [facility] Work Phone: 01-30-2022 11:26-0400 Respiratory rate 22 /min Dr. Mathieu Virgen Work Phone: [facility] Work Phone: 01-30-2022 11:26-0400 SaO2% (BldA) [Mass fraction] 93 % Dr. Mathieu Virgen Work Phone: [facility] Work Phone: 01-30-2022 11:26-0400 Systolic blood pressure 126 mm[Hg] Dr. Mathieu Virgen Work Phone: [facility] Work Phone: 01-27-2022 14:46-0400 Body temperature 97.9 [degF] Saad Xavier RAILWAY SIGNAL ELECTRICIAN.CBX OPERATOR Work Phone: [facility] 01-27-2022 14:46-0400 Body weight 136.62 kg Saad Xavier RAILWAY SIGNAL ELECTRICIAN.CBX OPERATOR Work Phone: [facility] 01-27-2022 14:46-0400 Diastolic blood pressure 74 mm[Hg] Saad Xavier RAILWAY SIGNAL ELECTRICIAN.CBX OPERATOR Work Phone: [facility] 01-27-2022 14:46-0400 Heart rate 85 /min Saad Xavier RAILWAY SIGNAL ELECTRICIAN.CBX OPERATOR Work Phone: [facility] 01-27-2022 14:46-0400 Respiratory rate 18 /min Saad Xavier RAILWAY SIGNAL ELECTRICIAN.CBX OPERATOR Work Phone: [facility] 01-27-2022 14:46-0400 SaO2% (BldA) [Mass fraction] 95 % Saad Xavier RAILWAY SIGNAL ELECTRICIAN.CBX OPERATOR Work Phone: [facility] 01-27-2022 14:46-0400 Systolic blood pressure 128 mm[Hg] Saad Park APRN.[facility] Work Phone: [facility] 01-12-2022 14:41-0400 Diastolic blood pressure 75 mm[Hg] Kaitlyn Hernández [facility] Work Phone: [facility] 01-12-2022 14:41-0400 Heart rate 74 /[facility] 01-12-2022 14:41-0400 Systolic blood pressure 132 mm[Hg] [facility] 11-30-2021 11:14-0400 Body mass index (BMI) [Ratio] 39.4 kg/m2 Dr. Mathieu Virgen Work Phone: [facility] Work Phone: 11-30-2021 11:14-0400 Body temperature 96.9 [degF] Dr. Mathieu Virgen Work Phone: [facility] Work Phone: 11-30-2021 11:14-0400 Body weight 135.[address] Mathieu Virgen Work Phone: [facility] Work Phone: 11-30-2021 11:14-0400 Diastolic blood pressure 76 mm[Hg] Dr. Mathieu Virgen Work Phone: [facility] Work Phone: 11-30-2021 11:14-0400 Heart rate 78 /min Dr. Mathieu Virgen Work Phone: [facility] Work Phone: 11-30-2021 11:14-0400 Respiratory rate 18 /min Dr. Mathieu Virgen Work Phone: [facility] Work Phone: 11-30-2021 11:14-0400 SaO2% (BldA) [Mass fraction] 92 % Dr. Mathieu Virgen Work Phone: [facility] Work Phone: 11-30-2021 11:14-0400 Systolic blood pressure 132 mm[Hg] Dr. Mathieu Virgen Work Phone: [facility] Work Phone: 11-10-2021 12:18-0500 Body weight 135.[address] Mathieu Virgen Work Phone: [facility] Work Phone: 11-10-2021 12:18-0500 Heart rate 81 /min Dr. Mathieu Virgen Work Phone: [facility] Work Phone: 11-10-2021 12:18-0500 SaO2% (BldA) [Mass fraction] 94 % Dr. Mathieu Virgen Work Phone: [facility] Work Phone: 10-26-2021 10:42-0500 Body mass index (BMI) [Ratio] 40.4 kg/m2 Dr. Mathieu Virgen Work Phone: [facility] Work Phone: 10-26-2021 10:42-0500 Body temperature 97.5 [degF] Dr. Mathieu Virgen Work Phone: [facility] Work Phone: 10-26-2021 10:42-0500 Body weight 135.[address] Mathieu Virgen Work Phone: [facility] Work Phone: 10-26-2021 10:42-0500 Diastolic blood pressure 79 mm[Hg] Dr. Mathieu Virgen Work Phone: [facility] Work Phone: 10-26-2021 10:42-0500 Heart rate 79 /min Dr. Mathieu Virgen Work Phone: [facility] Work Phone: 10-26-2021 10:42-0500 Respiratory rate 16 /min Dr. Mathieu Virgen Work Phone: [facility] Work Phone: 10-26-2021 10:42-0500 SaO2% (BldA) [Mass fraction] 94 % Dr. Mathieu Virgen Work Phone: [facility] Work Phone: 10-26-2021 10:42-0500 Systolic blood pressure 118 mm[Hg] Dr. Mathieu Virgen Work Phone: [facility] Work Phone: 10-24-2021 10:15-0500 Body mass index (BMI) [Ratio] 40.5 kg/m2 Dr. Mahtieu Virgen Work Phone: [facility] Work Phone: 10-24-2021 10:15-0500 Body weight 135.[address] Mathieu Virgen Work Phone: [facility] Work Phone: 10-24-2021 10:15-0500 Diastolic blood pressure 65 mm[Hg] Dr. Mathieu Virgen Work Phone: [facility] Work Phone: 10-24-2021 10:15-0500 Heart rate 76 /min Dr. Mathieu Virgen Work Phone: [facility] Work Phone: 10-24-2021 10:15-0500 Respiratory rate 24 /min Dr. Mathieu Virgen Work Phone: [facility] Work Phone: 10-24-2021 10:15-0500 SaO2% (BldA) [Mass fraction] 95 % Dr. Mathieu Virgen Work Phone: [facility] Work Phone: 10-24-2021 10:15-0500 Systolic blood pressure 123 mm[Hg] Dr. Mathieu Virgen Work Phone: [facility] Work Phone: Encounters Encounter Date Encounter Type Care Provider Facility Start: 06-02-2025 ambulatory Eduardo Sweet Facility :[facility] Start: 05-04-2025 End: 05-04-2025 Patient encounter procedure Eduardo Sweet [place] -[facility] Work Phone: Start: 05-04-2025 End: 05-04-[address] Mathieu Virgen MD Work Phone: -[facility] Start: 04-30-2025 Non-patient / Non-visit Dr. Edgar ryan MD -[facility] Start: 04-29-2025 End: 04-30-2025 ambulatory Yola Canales Facility:[facility] Start: 04-29-2025 End: 04-30-2025 Evaluation and management of inpatient Dr. Narda Prather DO -Progressive Care Unit Work Phone: Start: 04-29-2025 End: 04-30-[address] Mathieu Virgen MD Work Phone: -[facility] Care [facility] Start: 04-08-2025 End: 04-08-[address] Mathieu Virgen MD Work Phone: -Laboratory Start: 04-08-2025 End: 04-08-2025 Patient encounter procedure ALIGNER TYPEWRITER Megan Macario -Laboratory Work Phone: Start: 04-08-2025 End: 04-08-2025 Patient encounter procedure ARSALAN Macario -[facility] Work Phone: Start: 04-08-2025 End: 04-08-[address] Mathieu Virgen MD Work Phone: -[facility] Start: 04-08-2025 End: 04-08-2025 ambulatory Mathieu Virgen Facility:[facility] Start: 04-02-2025 End: 04-03-2025 Telephone encounter Mathieu Virgen MD Work Phone: [facility] Comment on above: Patient Assistance ( [employer] form for basaglar) Start: 04-01-2025 End: 04-01-[address] Mathieu Virgen MD Work Phone: -Cat Scan [facility] Start: 04-01-2025 End: 04-01-2025 Patient encounter procedure ALIGNER TYPEWRITER Megan Macario -[facility] Work Phone: Start: 04-01-2025 End: 04-01-2025 ambulatory [facility] Facility:[facility] Start: 03-27-2025 End: 03-27-2025 ambulatory Mathieu Virgen MD Work Phone: [facility] Comment on above: New Pharmacy Refill Request; refi ll status Start: 03-02-2025 ambulatory [facility] Facility:[facility] Start: 03-02-2025 Non-patient / Non-visit Dr. Marvin Morse own DO -[facility] Start: 02-26-2025 End: 02-26-[address] Mathieu Virgen MD Work Phone: [facility] Work Phone: Start: 02-26-2025 End: 02-26-2025 Patient encounter procedure ALIGNER TYPEWRITER Megan Macario -Pulmonary Services/Neurology Work Phone: Start: 02-26-2025 End: 02-26-2025 ambulatory [facility] Facility:[facility] Start: 02-11-2025 End: 02-11-2025 Telephone encounter Mathieu Virgen MD Work Phone: [facility] Comment on above: FYI-No Action Needed (Diabetes note sent to DME) Start: 02-06-2025 End: 05-01-2025 Telephone encounter Mathieu Virgen MD Work Phone: [facility] Comment on above: Results Start: 01-30-2025 End: 02-02-2025 Follow-up encounter Jamal Mace Work Phone: Podiatry Start: 01-30-2025 Non-patient / Non-visit Dr. Marvin Morse own DO -[facility] Start: 01-30-2025 End: 01-30-[address] 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) Start: 01-26-2025 End: 01-26-2025 ambulatory [facility] Facility:[facility] Start: 01-26-2025 End: 01-26-2025 Patient encounter procedure [facility] Work Phone: Start: 01-26-2025 End: 01-26-2025 ambulatory [facility] Facility:[facility] Start: 01-23-2025 End: 01-23-2025 ambulatory Mathieu Virgen MD Work Phone: [facility] Comment on above: labs Start: 01-23-2025 End: 01-23-2025 E-mail encounter from caregiver Mathieu Virgen MD Work Phone: [facility] Start: 01-22-2025 End: 01-22-2025 Subsequent hospital visit by physician Domin[facility] Lisa Lang Work Phone: Radiology Comment on above: Closed fracture of f oot, unspecified laterality, initial encounter [S92.909A] Start: 01-22-2025 End: 01-22-2025 Patient encounter procedure Jamal Mace Work Phone: Podiatry Comment on above: Closed fracture of f oot, unspecified laterality, initial encounter Start: 01-22-2025 End: 01-22-2025 ambulatory [facility] Facility:[facility] Start: 01-22-2025 End: 01-22-2025 Telephone encounter Mathieu Virgen MD Work Phone: [facility] Start: 01-21-2025 End: 01-21-[address] Mathieu Virgen MD Work Phone: [facility] Work Phone: Start: 01-21-2025 End: 01-21-[address] Mathieu Virgen MD -Laboratory Work Phone: Start: 01-21-2025 End: 01-21-2025 Patient encounter procedure ALIGNER TYPEWRITER Megan Macario -[facility] Work Phone: Start: 01-21-2025 End: 01-21-2025 ambulatory Megan Macario Facility:[facility] Start: 01-21-2025 End: 01-21-2025 ambulatory Mathieu Param Facility:[facility] Start: 01-19-2025 End: 01-20-2025 Emergency department patient visit Dr. Abraham Green -Emergency Department Work Phone: Start: 01-13-2025 End: 01-13-2025 Refill Mathieu Virgen MD Work Phone: [facility] Comment on above: Refill Request Start: 01-12-2025 End: 01-12-2025 Subsequent hospital visit by physician Dominick [facility] Lisa Work Phone: Radiology Comment on above: Contusion of left fo ot, subsequent encounter [S90.32XD] Start: 01-12-2025 End: 01-12-2025 Patient encounter procedure Mathieu Virgen MD Work Phone: [facility] Comment on above: Contusion of left fo ot, subsequent encounter (Primary Dx); Foot pain, left Start: 01-12-2025 End: 01-12-2025 ambulatory MATHIEU VIRGEN Facility:[facility] Start: 01-12-2025 End: 01-16-2025 Telephone encounter Mathieu Virgen MD Work Phone: [facility] Comment on above: Results Start: 12-11-2024 End: 12-11-[address] Devante Ponce MD -[facility] Work Phone: Start: 12-11-2024 End: 12-11-2024 ambulatory Mathieu Virgen Facility:[facility] Start: 12-03-2024 End: 12-04-2024 Telephone encounter Mathieu Virgen MD Work Phone: [facility] Comment on above: Insurance Authorizat ion Start: 12-02-2024 End: 12-02-2024 ambulatory MATHIEU VIRGEN Facility:[facility] Start: 12-02-2024 End: 12-02-2024 Patient encounter procedure Mathieu Virgen MD Work Phone: [facility] Comment on above: Acute diastolic CHF (congestive [...] Mathieu Virgen MD Work Phone: [facility] Comment on above: Results Start: 11-28-2024 End: 11-28-[address] Mathieu Virgen MD Work Phone: [facility] Work Phone: Start: 11-28-2024 End: 11-28-[address] Mathieu Virgen MD -Laboratory Work Phone: Start: 11-27-2024 End: 11-27-2024 Telephone encounter Mathieu Virgen MD Work Phone: [facility] Comment on above: Orders Start: 11-27-2024 End: 11-28-[address] Mathieu Virgen MD Work Phone: [facility] Work Phone: Start: 11-27-2024 End: 11-27-2024 Patient [...] Mathieu Virgen MD Work Phone: [facility] [place] Comment on above: requesting medicatio n that [...] Start: 11-10-2024 End: 11-10-2024 ambulatory Megan Macario Facility:[facility] Start: 11-03-2024 End: 11-03-2024 Emergency department patient visit Dr. Qasim Senior DO -Emergency Department Work Phone: Start: 10-31-2024 End: 10-31-2024 ambulatory MATHIEU VIRGEN Facility:[facility] Start: 10-31-2024 End: 10-31-2024 Patient encounter procedure Sukh Hall APRN.CBX OPERATOR Work Phone: [facility] Comment on above: Essential hypertensi on (Primary Dx); Paroxysmal atrial fibrillation (HCC); Dizziness; Systolic congestive heart failure, unspecified HF chronicity (HCC) Start: 10-31-2024 End: 10-31-2024 Telephone encounter [facility] Comment on above: Appointment Start: 10-23-2024 End: 10-23-2024 Patient encounter procedure ALIGNER TYPEWRITER Megan Macario -Sleep Lab Work Phone: Start: 10-23-2024 End: 10-23-2024 ambulatory [facility] Facility:[facility] Start: 10-16-2024 End: 10-16-2024 Telephone encounter Mathieu Virgen MD Work Phone: [facility] Comment on above: Dexcom G7 sensors / issue Start: 10-08-2024 End: 10-09-2024 Refill Mathieu Virgen MD Work Phone: [facility] Comment on above: Refill Request Start: 10-07-2024 End: 10-07-2024 Patient encounter procedure Tierra KIRKPATRICK -Laboratory Work Phone: Start: 10-07-2024 End: 10-07-2024 ambulatory Tierra KIRKPATRICK Facility:[facility] Start: 09-23-2024 End: 09-23-2024 Patient encounter procedure Tierra KIRKPATRICK -[facility] Work Phone: Start: 09-23-2024 End: 09-23-2024 ambulatory [facility] Facility:[facility] Start: 09-23-2024 End: 09-23-2024 Office outpatient visit 15 minutes Denisha Shepard APRN.CBX OPERATOR Work Phone: [facility] Comment on above: Dizziness (Primary D x); Chest pain, unspecified type Start: 09-23-2024 End: 09-23-2024 ambulatory DENISHA SHEPARD Facility:[facility] Start: 09-22-2024 End: 09-23-2024 Telephone encounter Denisha Shepard APRN.CBX OPERATOR Work Phone: [facility] Comment on above: Patient Update; Appo intment Start: 09-20-2024 End: 09-20-2024 Emergency department patient visit Dr. Reji Smith MD -Emergency Department Work Phone: Start: 09-03-2024 End: 09-03-2024 Patient encounter procedure Sergey [facility] Work Phone: Start: 09-03-2024 End: 09-03-2024 ambulatory [facility] Facility:[facility] Start: 09-02-2024 End: 09-02-2024 ambulatory Math[facility]gen MD [facility] Comment on above: Constipation Start: 09-01-2024 End: 09-01-2024 Emergency department patient visit Mani Esquivel -Emergency Department Work Phone: Start: 08-25-2024 End: 08-25-2024 Patient encounter procedure ALIGNER TYPEWRITER Megan Macario -Sleep Lab Work Phone: Start: 08-25-2024 End: 08-25-2024 ambulatory [facility] Facility:[facility] Start: 08-22-2024 End: 08-25-2024 Refill Julianna A Suppan RAILWAY SIGNAL ELECTRICIAN.CBX OPERATOR Work Phone: [facility] Comment on above: Refill Request Start: 08-18-2024 End: 08-18-2024 Telephone encounter Mathieu Virgen MD Work Phone: [facility] Comment on above: Orders Start: 08-15-2024 End: 08-15-2024 Refill Julianna A Suppan RAILWAY SIGNAL ELECTRICIAN.CBX OPERATOR Work Phone: [facility] Comment on above: Refill Request CGM Order Start: 08-13-2024 End: 08-13-2024 Patient encounter procedure Sergey [facility] Work Phone: Start: 08-13-2024 End: 08-13-2024 ambulatory [facility] Start: 08-11-2024 End: 08-11-2024 Patient encounter procedure Sergey H Roof ALIGNER TYPEWRITER-C -Laboratory Work Phone: Start: 08-11-2024 End: 08-11-2024 Telephone encounter Mathieu Virgen MD Work Phone: [facility] Comment on above: Patient Update Start: 08-11-2024 End: 08-11-2024 [facility] Facility:[facility] Start: 08-05-2024 End: 08-08-2024 Nurse Triage Nurse Intm/Famp Triage [facility] Work Phone: Nurse Phone Triage Comment on above: Oxygen Order Request Scooter Start: 08-02-2024 End: 08-04-2024 ambulatory Mathieu Virgen MD Work Phone: [facility] Comment on above: Dexcom G7 CGM Start: 08-01-2024 End: 08-01-2024 Refill Mathieu Virgen MD Work Phone: [facility] Comment on above: Refill Request Start: 07-31-2024 End: 08-01-2024 Telephone encounter Julianna Hood RAILWAY SIGNAL ELECTRICIAN.CBX OPERATOR Work Phone: [facility] Start: 07-31-2024 End: 07-31-2024 [facility] Facility:[facility] Start: 07-31-2024 End: 07-31-2024 ambulatory Julianna Hood Facility:[facility] Start: 07-29-2024 End: 07-29-2024 [facility] Start: 07-29-2024 End: 07-29-2024 Office outpatient visit 25 minutes Julianna Hood RAILWAY SIGNAL ELECTRICIAN.CBX OPERATOR Work Phone: [facility] Comment on above: Type 2 diabetes debbie itus with microalbuminuria (HCC) (Primary Dx); Systolic congestive heart failure, unspecified HF chronicity (HCC); Essential hypertension; Paroxysmal atrial fibrillation (HCC); Restrictive lung disease; Schizophrenia, chronic condition (HCC); Chronic anticoagulation; Diastolic congestive heart failure, unspecified HF chronicity (HCC); Iron deficiency anemia, unspecified iron deficiency anemia type; Vitamin B12 deficiency Start: 07-28-2024 End: 07-28-2024 ambulatory Julianna Hood Facility:[facility] Start: 07-23-2024 ambulatory [facility] Facility:[facility] Start: 07-22-2024 ambulatory Sara Landry [facility] Start: 07-22-2024 End: 07-25-2024 Evaluation and management of inpatient [facility] Facility:[facility] Start: 07-10-2024 End: 07-10-2024 ambulatory [facility] Facility:[facility] Start: 07-10-2024 End: 07-11-2024 ambulatory [facility] Facility:[facility] Start: 07-09-2024 End: 07-09-2024 Refill Mathieu Virgen MD Work Phone: [facility] Comment on above: Refill Request Start: 07-08-2024 End: 07-08-2024 ambulatory [facility] Facility:[facility] Start: 07-04-2024 End: 07-04-2024 ambulatory [facility] Facility:[facility] Start: 07-04-2024 End: 07-04-2024 ambulatory [facility] Facility:[facility] Start: 06-24-2024 End: 06-24-2024 Emergency department patient visit [facility] Facility:[facility] Start: 06-23-2024 End: 06-23-2024 ambulatory ABRIL DUVAL Facility:[facility] Start: 06-23-2024 End: 06-23-2024 Patient encounter procedure Abril Duval RAILWAY SIGNAL ELECTRICIAN.CBX OPERATOR Work Phone: Neurology Comment on above: Snoring (Primary Dx) ; Witnessed episode of apnea; Nocturnal leg movements; Frequent nocturnal awakening; Nocturia Start: 06-23-2024 End: 06-24-2024 Telephone encounter Mathieu Virgen MD Work Phone: [facility] Comment on above: Results Start: 06-20-2024 End: 06-20-2024 Refill Zoila Wright RAILWAY SIGNAL ELECTRICIAN.CBX OPERATOR Work Phone: [facility] Comment on above: Refill Request Essential [...] Telephone encounter Mathieu Virgen MD Work Phone: [facility] Comment on above: Patient Question Start: 06-17-2024 End: 06-17-2024 Telephone encounter Mathieu Virgen MD Work Phone: [facility] Start: 06-16-2024 End: 06-16-2024 ambulatory Mathieu Virgen MD Work Phone: [facility] Comment on above: Scooter Start: 06-11-2024 End: 06-11-2024 ambulatory MATHIEU VIRGEN Facility:[facility] Start: 06-08-2024 End: 06-09-2024 Refill Mathieu Virgen MD Work Phone: [facility] Comment on above: Refill Request Start: 06-08-2024 End: 06-08-2024 Emergency department patient visit [facility] Facility:[facility] Start: 05-31-2024 End: 05-31-2024 Emergency department patient visit [facility] Facility:[facility] Start: 05-31-2024 End: 05-31-2024 ambulatory Narda Theodore RN NURSE BESSEMER REGULATOR Comment on above: Dizziness Start: 05-31-2024 End: 05-31-2024 Patient encounter procedure Amairani Mcclendon APRN.CNP Work Phone: [facility] Comment on above: Generalized weakness (Primary Dx) Start: 05-07-2024 End: 05-07-2024 Chart abstracting Mathieu Virgen MD Work Phone: [facility] [place] Start: 05-05-2024 End: 05-05-2024 Refill Mathieu Virgen MD Work Phone: [facility] [place] Comment on above: Refill Request Start: 04-14-2024 Refill Mathieu Virgen MD Work Phone: [facility] Comment on above: Refill Request Start: 04-12-2024 End: 04-12-2024 Emergency department patient visit MELVIN BINGHAM Facility:[facility] Start: 04-11-2024 ambulatory Randi Turner RN NURSE BESSEMER REGULATOR Comment on above: Patient Update; Bloo d In Urine Encounter for medica l assessment (Primary Dx) Start: 04-11-2024 Patient encounter status Mariaelena Curry DO Work Phone: [facility] Work Phone: Start: 04-11-2024 Telemedicine consult ation with patient Mariaelena Curry DO Work Phone: [facility] Start: 04-10-2024 Refill Mathieu Virgen MD Work Phone: [facility] Comment on above: Refill Request Start: 04-09-2024 End: 04-09-2024 Office outpatient visit 15 minutes Andrew Guallpa RAILWAY SIGNAL ELECTRICIAN.CBX OPERATOR Work Phone: [facility] Comment on above: Abrasion of left verma adry, initial encounter (Primary Dx) Start: 04-08-2024 ambulatory Mathieu Virgen MD Work Phone: [facility] [place] Comment on above: Scooter Start: 03-21-2024 ambulatory Vikas ruth PA-C Work Phone: [facility] [place] Comment on above: Test Results Start: 03-21-2024 Telephone encounter Vikas Travis PA-C Work Phone: [facility] [place] Start: 03-19-2024 Telephone encounter Vikas Travis PA-C Work Phone: [facility] [place] Comment on above: Results Start: 03-06-2024 Refill Zoila Wright RAILWAY SIGNAL ELECTRICIAN.CBX OPERATOR Work Phone: Family [facility] [place] Comment on above: Refill Request Start: 02-28-2024 End: 02-28-2024 Patient encounter procedure Vikas Travis CASIMIRO-C Work Phone: [facility] [place] Comment on above: 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); Venous incompetence; Bilateral leg edema; SOB (shortness of breath); Weight gain; CJ (obstructive sleep apnea); Hypersomnolence; Cushingoid facies Start: 02-12-2024 End: 02-12-2024 ambulatory Nurse Intm/Famp Triage [facility] Work Phone: Nurse Phone Triage Start: 02-12-2024 End: 02-12-2024 Telephone follow-up Nurse Intm/Famp Triage [facility] Work Phone: Nurse Phone Triage Comment on above: Follow Up Start: 02-10-2024 ambulatory Vikas ruth CASIMIRO-C Work Phone: [facility] [place] Start: 02-10-2024 Follow-up encounter Vikas Travis CASIMIRO-C Work Phone: [facility] [place] Comment on above: Follow Up Weight Start: 02-04-2024 ambulatory Mathieu Virgen MD Work Phone: [facility] Comment on above: Edema Start: 02-04-2024 End: 02-04-2024 Subsequent hospital visit by physician Xr [facility] [place] Work Phone: Radiology Comment on above: SOB (shortness of br eath) [R06.02] Start: 02-04-2024 End: 02-04-2024 Patient encounter procedure Vikas Travis CASIMIRO-C Work Phone: [facility] [place] Comment on above: SOB (shortness of br eath) (Primary Dx); Bilateral leg edema; Weight increase Start: 01-26-2024 ambulatory [facility] Comment on above: ACCU CHECK TEST STRI PS Start: 01-18-2024 Refill Pio Nicole MD [facility] Comment on above: Refill Request Famotidine Start: 01-09-2024 Refill Zoila Dejesus Kyle KAM Work Phone: [facility] Comment on above: Refill Request Start: 01-01-2024 ambulatory Mathieu Virgen MD Work Phone: [facility] Comment on above: Scooter Start: 01-01-2024 Telephone encounter Mathieu Virgen MD Work Phone: [facility] Comment on above: Epi man er Start: 12-30-2023 ambulatory Mathieu Virgen MD Work Phone: [facility] Comment on above: Scooter Start: 12-25-2023 End: 12-25-2023 Patient encounter procedure Mathieu Virgen MD Work Phone: [facility] Comment on above: Paroxysmal atrial fi brillation [...] 11-14-2023 Refill Mathieu Virgen MD Work Phone: [facility] Comment on above: Refill Request Medication Question Orders Start: 11-02-2023 Refill Vikas ruth PA-C Work Phone: [facility] Comment on above: Refill Request Start: 10-12-2023 Refill Mathieu Virgen MD Work Phone: [facility] Comment on above: Refill Request Start: 09-22-2023 End: 09-22-2023 Emergency department patient visit [facility] Work Phone: Start: 09-06-2023 End: 09-06-2023 Subsequent hospital visit by physician Xr [facility] Work Phone: Radiology Comment on above: Sinobronchitis [J32. 9, J40] Start: 09-06-2023 ambulatory Mathieu Virgen MD Work Phone: [facility] Comment on above: Coughing Up Blood Start: 08-27-2023 Refill Mathieu Virgen MD Work Phone: [facility] Comment on above: Refill Request Start: 08-07-2023 Telephone encounter Mathieu Virgen MD Work Phone: [facility] Comment on above: Patient Assistance ( [employer] (Basaglar and Humalog)) Start: 07-23-2023 End: 07-23-2023 Subsequent hospital visit by physician Xr [facility] Work Phone: Radiology Comment on above: Acute hip pain, righ t [M25.551] Start: 07-23-2023 End: 07-23-2023 Patient encounter procedure Pio Nicole MD Work Phone: [facility] Comment on above: Acute hip pain, righ t (Primary Dx) Start: 07-13-2023 Telephone encounter Mathieu Virgen MD Work Phone: [facility] Start: 07-11-2023 End: 07-11-2023 [facility] Work [facility] Start: 06-26-2023 End: 06-26-2023 ambulatory [facility] Work Phone: Start: 06-26-2023 End: 06-26-2023 Patient encounter procedure [facility] y, Specimen Work Phone: Start: 06-19-2023 Refill Mathieu Virgen MD Work Phone: [facility] Comment on above: Refill Request Start: 06-09-2023 ambulatory Adele murrieta RN NURSE BESSEMER REGULATOR Comment on above: Viral Syndrome Start: 06-09-2023 End: 06-09-2023 Subsequent hospital visit by physician Xr [facility] [place] Work Phone: Radiology Comment on above: Viral URI with cough [J06.9] Start: 06-09-2023 End: 06-09-2023 Patient encounter procedure Pio Nicole MD Work Phone: [facility] [place] Comment on above: Viral URI with cough (Primary Dx); Suspected COVID-19 virus infection; Bronchitis Start: 06-07-2023 Refill Mathieu Virgen MD Work Phone: [facility] [place] Comment on above: Refill Request Start: 06-06-2023 End: 06-06-2023 Patient encounter procedure Mathieu Virgen MD Work Phone: [facility] [place] Comment on above: Essential hypertensi on (Primary Dx); Encounter for immunization; Paroxysmal atrial fibrillation (HCC); Mixed hyperlipidemia; Schizophrenia, chronic condition (HCC); Chronic anticoagulation; Type 2 diabetes mellitus with microalbuminuria, with long-term current use of insulin (HCC); Restrictive lung disease Start: 06-04-2023 Telephone encounter Mathieu Virgen MD Work Phone: [facility] [place] Comment on above: patient question/lab s Start: 05-18-2023 End: 05-18-2023 Patient encounter procedure Vikas Travis PA-C Work Phone: [facility] Comment on above: Near syncope (Primar y Dx); Fall, initial encounter; Acute upper respiratory infection; Morbid obesity (HCC) Start: 05-16-2023 Refill Mathieu Virgen MD Work Phone: [facility] Comment on above: Refill Request Start: 05-11-2023 Telephone encounter Mathieu Virgen MD Work Phone: [facility] Comment on above: Forms Start: 05-01-2023 End: 05-01-2023 Patient encounter procedure Vikas Travis PA-C Work Phone: [facility] [place] Comment on above: Encounter for post s urgical wound check (Primary Dx) Start: 04-30-2023 End: 04-30-2023 Patient encounter procedure Vikas Travis PA-C Work Phone: [facility] [place] Comment on above: Inflamed acrochordon (Primary Dx); Seborrheic keratoses, inflamed Start: 04-26-2023 ambulatory Mathieu Virgen MD Work Phone: [facility] Comment on above: Skin Tags Removal Start: 04-12-2023 Refill Mathieu Virgen MD Work Phone: [facility] Comment on above: Refill Request Start: 03-31-2023 End: 03-31-2023 Emergency department patient visit Dr. Mathieu Virgen Work Phone: [facility] Work Phone: Start: 03-19-2023 ambulatory Mathieu Virgen MD Work Phone: [facility] Start: 03-19-2023 Patient encounter procedure Shannon Virgen MD Work Phone: [facility] Comment on above: Appointment Start: 03-05-2023 End: 03-05-2023 Office outpatient visit 15 minutes Andrew Guallpa APRN.CNP Work Phone: [facility] Comment on above: Acute constipation ( Primary Dx) Start: 03-02-2023 End: 03-02-2023 Patient encounter procedure Mathieu Virgen MD Work Phone: [facility] Comment on above: Nausea (Primary Dx); Hypoglycemia; Type 2 diabetes mellitus with microalbuminuria, with long-term current use of insulin (HCC); Leukocytosis, unspecified type; Abnormal serum level of lipase; Benign prostatic hyperplasia with lower urinary tract symptoms, symptom details unspecified; Urinary retention Start: 03-01-2023 End: 03-01-2023 Emergency department patient visit Dr. Mathieu Virgen Work Phone: [facility] Start: 03-01-2023 End: 03-01-[address] [facility] Start: 02-24-2023 End: 02-25-2023 Emergency department patient visit Dr. Mathieu Virgen Work Phone: [facility] Start: 02-22-2023 Refill Mathieu Virgen MD Work Phone: [facility] [place] Comment on above: Refill Request (medi cation question ) Start: 02-16-2023 End: 02-16-2023 Subsequent hospital visit by physician Dominick [facility] Work Phone: Radiology Comment on above: Acute left ankle stone n [M25.572] Start: 02-16-2023 End: 02-16-2023 Office outpatient visit 15 minutes Denisha Shepard APRN.CBX OPERATOR Work Phone: [facility] [place] Comment on above: Acute left ankle stone n (Primary Dx) Start: 02-16-2023 Telephone encounter Denisha hess APRN.CBX OPERATOR Work Phone: [facility] [place] Comment on above: Results Start: 02-16-2023 Unlisted evaluation and management service Denisha Shepard APRN.CBX OPERATOR Work Phone: [facility] Comment on above: Opened In Error Start: 02-14-2023 End: 02-14-2023 Nursing evaluation of patient and report Nurse Jerilyn [facility] Work Phone: General Surgery Comment on above: Lesion of subcutaneo us tissue (Primary Dx) Start: 01-19-2023 End: 01-19-2023 Patient encounter procedure Mathieu Virgen MD Work Phone: [facility] [place] Comment on above: Skin mass (Primary D x) Start: 11-29-2022 End: 11-29-2022 Patient encounter procedure Mathieu Virgen MD Work Phone: [facility] [place] Comment on above: Chest pain, unspecif ied type (Primary Dx); Leukocytosis, unspecified type; Type 2 diabetes mellitus with microalbuminuria, with long-term current use of insulin (HCC); Schizophrenia, chronic condition (HCC); Paroxysmal atrial fibrillation (HCC); Essential hypertension; Pure hypercholesterolemia Start: 11-25-2022 Telephone encounter Mathieu Virgen MD Work Phone: [facility] Comment on above: Orders Start: 11-22-2022 Patient Outreach Mathieu perez MD Work Phone: [facility] Comment on above: Transition Of Care ( [facility] 11/21-11/21 dx: chest pain) Start: 11-21-2022 Non-patient / Non-visit Dr. Shannon Virgen Work Phone: [facility] Start: 11-21-2022 Non-patient / Non-visit Dr. Shannon Virgen Work Phone: [facility] In[facility] Phys[facility] Start: 11-21-2022 End: 11-21-2022 Evaluation and management of inpatient Dr. Mathieu Virgen Work Phone: [facility] Start: 11-21-2022 End: 11-21-[address] Mathieu Virgen Work Phone: [facility] Work Phone: Start: 11-20-2022 End: 11-21-2022 Emergency department patient visit Dr. Mathieu Virgen Work Phone: [facility] Start: 11-10-2022 Refill Mathieu Virgen MD Work Phone: [facility] Comment on above: Refill Request Start: 10-26-2022 Telephone encounter Kaitlyn perez [facility] Work Phone: [facility] Comment on above: Medication Question Start: 10-26-2022 End: 10-26-[address] Mathieu Virgen Work Phone: [facility] Start: 10-16-2022 ambulatory Kaitlyn Hernández [facility] Work Phone: [facility] Comment on above: Touwilmer free trial ca rd Start: 10-16-2022 E-mail encounter fro m caregiver Kaitlyn Hernández [facility] Work Phone: [facility] Start: 10-16-2022 Telephone encounter Kaitlyn perez [facility] Work Phone: [facility] Comment on above: Medication Question Start: 10-03-2022 Refill Mathieu Virgen MD Work Phone: [facility] Comment on above: Refill Request Start: 09-29-2022 Telephone encounter Kaitlyn perez [facility] Work Phone: [facility] Comment on above: Medication Question Start: 09-25-2022 Telephone encounter Mathieu Virgen MD Work Phone: [facility] Comment on above: [employer] Forms for Insulin Start: 08-21-2022 Refill Mathieu Virgen MD Work Phone: [facility] Comment on above: Refill Request Start: 08-08-2022 End: 08-08-2022 Emergency department patient visit Dr. Mathieu Virgen Work Phone: [facility] Start: 08-07-2022 ambulatory Mathieu Virgen MD Work Phone: [facility] Comment on above: Insulin Needle broke in stomach Start: 06-22-2022 Telephone encounter Kaitlyn Weaver ana [facility] Work Phone: [facility] Comment on above: Forms (Jardireynaldo pat ient assistance application) Start: 06-22-2022 End: 06-22-2022 Patient encounter procedure Kaitlyn Hernández [facility] Work Phone: [facility] Comment on above: Type 2 diabetes debbie itus without complication, with long-term current use of insulin (HCC) (Primary Dx) Start: 05-31-2022 End: 05-31-2022 Patient encounter procedure Mathieu Virgen MD Work Phone: [facility] Comment on above: Essential hypertensi on (Primary Dx); Paroxysmal atrial fibrillation (HCC); Pure hypercholesterolemia; Type 2 diabetes mellitus with microalbuminuria, with long-term current use of insulin (HCC); Chronic anticoagulation; Monocytosis; Need for influenza vaccination Start: 05-08-2022 Refill Mathieu Virgen MD Work Phone: [facility] Comment on above: Refill Request Start: 05-04-2022 End: 05-04-[address] Mathieu Virgen Work Phone: [facility] Start: 04-08-2022 End: 04-08-2022 Emergency department patient visit Dr. Mathieu Virgen Work Phone: [facility] Start: 04-08-2022 End: 04-08-2022 Patient encounter procedure Andrew Castellanoscollette KAM Work Phone: [facility] Comment on above: Chest pain, unspecif ied type (Primary Dx); Accidental medication error, initial encounter Start: 03-23-2022 Telephone encounter Kaitlyn Weaver ana [facility] Work Phone: [facility] Comment on above: Forms (Basaglar PAP) Start: 03-23-2022 End: 03-23-2022 Patient encounter procedure Kaitlyn Hernández [facility] Work Phone: [facility] Comment on above: Type 2 diabetes debbie itus without complication, with long-term current use of insulin (HCC) (Primary Dx); Essential hypertension Start: 03-06-2022 Telephone encounter Mathieu Virgen MD Work Phone: [facility] Comment on above: Forms (Sangita Cares a pplication) Medication Question Start: 03-03-2022 End: 03-03-2022 Patient encounter procedure Mathieu Virgen MD Work Phone: [facility] Comment on above: Essential hypertensi on (Primary Dx); Pure hypercholesterolemia; Paroxysmal atrial fibrillation (HCC); Type 2 diabetes mellitus with microalbuminuria, with long-term current use of insulin (HCC); Chronic anticoagulation; Need for hepatitis C screening test Start: 03-02-2022 End: 03-02-[address] Mathieu Vir[facility] Start: 02-09-2022 Telephone encounter Mathieu Virgen MD Work Phone: [facility] Comment on above: indigent med Start: 02-07-2022 End: 02-07-[address] Mathieu Virgen Work Phone: [facility] Start: 02-06-2022 Telephone encounter Mathieu Virgen MD Work Phone: [facility] Comment on above: Patient Request Start: 02-03-2022 End: 02-03-2022 Patient encounter procedure Papito Castano DO Work Phone: [facility] Comment on above: Gastrocnemius tear, right, initial encounter (Primary Dx) Start: 02-02-2022 Refill Mathieu Virgen MD Work Phone: [facility] Comment on above: Refill Request Start: 02-01-2022 Refill Mathieu Virgen MD Work Phone: [facility] Comment on above: Refill Request (michael ent assistance ) Start: 01-31-2022 Refill Mathieu Virgen MD Work Phone: [facility] Comment on above: Prescription Refills Start: 01-30-2022 End: 01-30-[address] Mathieu Virgen Work Phone: [facility] Start: 01-27-2022 End: 01-27-2022 Patient encounter procedure Saad Park NEGIN Work Phone: [facility] Comment on above: Strain of calf muscl e, right, initial encounter (Primary Dx) Start: 01-12-2022 End: 01-12-2022 Patient encounter procedure Kaitlyn Hernández [facility] Work Phone: [facility] Comment on above: Type 2 diabetes debbie itus without complication, with long-term current use of insulin (HCC) (Primary Dx) Refill Request Start: 12-30-2021 Telephone encounter Mathieu Virgen MD Work Phone: [facility] Comment on above: Medication Problem Start: 12-29-2021 Refill Mathieu Virgen MD Work Phone: [facility] Comment on above: Refill Request Start: 12-15-2021 Telephone encounter Kaitlyn Weaver [facility] Work Phone: [facility] Comment on above: Forms (Jardiance PAP ) Start: 12-13-2021 Telephone encounter Mathieu Virgen MD Work Phone: [facility] Comment on above: Medication Problem Start: 12-12-2021 Refill Mathieu Virgen MD Work Phone: [facility] Comment on above: Refill Request Start: 11-30-2021 End: 11-30-[address] Mathieu Virgen Work Phone: [facility] Start: 11-11-2021 Non-patient / Non-visit Dr. Shannon Virgen Work Phone: [facility] Start: 11-10-2021 End: 11-10-[address] Math[facility] Start: 11-09-2021 Non-patient / Non-visit Dr. Shannon Virgen Work Phone: [facility] Start: 11-09-2021 End: 11-09-[address] Mathieu Vir[facility] Start: 11-01-2021 End: 11-01-[address] Mathieu Virgen Work Phone: [facility] Start: 10-24-2021 End: 10-24-[address] Mathieu Virgen Work Phone: [facility] Start: 07-13-2021 End: 07-13-2021 Subsequent hospital visit by physician Xr [facility] Work Phone: Radiology Comment on above: SOB (shortness of br eat) [R06.02] Start: 05-25-2021 End: 05-25-2021 Subsequent hospital visit by physician Xr [facility] Work Phone: Radiology Comment on above: phone apt Start: 01-24-2021 End: 01-24-2021 Subsequent hospital visit by physician Xr [facility] Work Phone: Radiology Comment on [...] Work Phone: Comment on above: Performed at: [place] [id number] Director: Naresh Pruitt PhD, Phone: [phone] Start: 04-08-[address] Roxanna Virgen [...] on above: Test not performed Start: 04-08-2025 BILINGUAL MANAGER antibody measurement Dr. Mathieu Virgen MD [...] exam ches t 2 views Anum Cheung RAILWAY SIGNAL ELECTRICIAN.CBX OPERATOR Work Phone: Start: 07-23-2023 Radex hip unilateral [...] ankle complete minimum 3 views Denisha Shepard RAILWAY SIGNAL ELECTRICIAN.CBX OPERATOR Work Phone: Start: 11-21-2022 Cardiovascular stres s [...] exam ches t 2 views Fito Membreno RAILWAY SIGNAL ELECTRICIAN.CBX OPERATOR, DNP Work Phone: Start: 07-16-2018 Adult depression screening assessment Mathieu iVrgen MD Work Phone: H/O: surgery H/O wrist surgery Dr. Judi Virgen Work Phone: Laboratory test resu lt abnormal Abnormal serum level of lipase Mathieu Virgen MD Work Phone: Plan of Treatment Date Care Activity Detail Author Start: 01-26-2026 Annual PCP Team Chronic Disease Visit Annual PCP Team Chronic Disease Visit [facility] Start: 01-26-2026 BP Controlled (<130/80) BP Controlled (<130/80) [facility] Start: 01-12-2026 Annual PCP Team Chronic Disease Visit Annual PCP Team Chronic Disease Visit [facility] Start: 01-12-2026 BP Controlled (<130/80) BP Controlled (<130/80) [facility] Start: 12-02-2025 Annual PCP Team Chronic Disease Visit Annual PCP Team Chronic Disease Visit [facility] Start: 12-02-2025 Anxiety Screening Anxiety Screening [facility] Start: 12-02-2025 BP Controlled (<130/80) BP Controlled (<130/80) [facility] Start: 12-02-2025 Depression Screening Depression Screening [facility] Start: 12-02-2025 RSV Vaccine (1 - 1-dose 75+ series) RSV Vaccine (1 - 1-dose 75+ series) [facility] Comment on above: Postponed from 2019 (Declined at t his time) Start: 10-31-2025 Annual PCP Team Chronic Disease Visit Annual PCP Team Chronic Disease Visit [facility] Start: 10-31-2025 BP Controlled (<130/80) BP Controlled (<130/80) [facility] Start: 09-23-2025 Annual PCP Team Chronic Disease Visit Annual PCP Team Chronic Disease Visit [facility] Start: 09-23-2025 BP Controlled (<130/80) BP Controlled (<130/80) [facility] Start: 07-29-2025 BP Controlled (<130/80) BP Controlled (<130/80) [facility] Start: 07-08-2025 Measurement of respiratory function [facility] Start: 06-20-2025 Annual PCP Team Chronic Disease Visit Annual PCP Team Chronic Disease Visit [facility] Start: 06-20-2025 Covid-19 Vaccine ( season) Covid-19 Vaccine ( season) [facility] Comment on above: Postponed from 05/18/2024 (Declined at t his time) Start: 06-20-2025 Diabetic foot examination Diabetic Foot Exam [facility] Start: 06-20-2025 Glaucoma screening Dilated Retinal Exam [facility] Start: 06-20-2025 Shingrix Vaccine (1 of 2) Shingrix Vaccine (1 of 2) [facility] Comment on above: Postponed from 1994 (Declined at t his time) Start: 06-20-2025 Urine microalbumin profile DTaP,Tdap,Td Vaccine (1 - Tdap) [facility] Comment on above: Postponed from 1963 (Declined at t his time) Start: 05-18-2025 Influenza vaccination Influenza Vaccine (#1) [facility] [facility] Start: 05-13-2025 End: 08-12-2025 Hemoglobin A1c in Blood HEMOGLOBIN A1C Lab Routine 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) Essential hypertension Expected: 05/13/2025, Expires: 08/12/2025 [facility] Comment on above: Expected: 05/13/2025, Expires: Start: 05-04-2025 Evaluation of diagnostic study results [facility] Start: 04-30-2025 Patient discharge [facility] Start: 04-30-2025 Consultation [facility] Start: 04-29-2025 Assessment of risk of venous thromboembolism [facility] Start: 04-29-2025 Care regimes management [facility] Start: 04-29-2025 Incentive spirometry [facility] Start: 04-29-2025 Insertion of catheter into peripheral vein [facility] Start: 04-29-2025 Measuring intake and output [facility] Start: 04-29-2025 Notification of physician [facility] Start: 04-29-2025 Oxygen therapy [facility] Start: 04-29-2025 Providing care according to standard [facility] Start: 04-29-2025 Provision of activity privileges [facility] Start: 04-29-2025 Referral to occupational therapist [facility] Start: 04-29-2025 Referral to service [facility] Start: 04-29-2025 End: 04-29-2025 [facility] Start: 04-29-2025 Following clinical pathway protocol [facility] Start: 04-29-2025 [facility] Start: 04-29-2025 Cardiovascular stress test using pharmacologic stress agent Nuclear Stress Test - Chemical [facility] Start: 04-29-2025 Urinalysis complete panel - Urine [facility] Start: 04-29-2025 Verification routine [facility] Start: 04-29-2025 Admission procedure [facility] Start: 04-29-2025 Hospital admission, emergency, from emergency room, medical nature [facility] Start: 04-29-2025 [facility] Start: 02-27-2025 Annual PCP Team Chronic Disease Visit Annual PCP Team Chronic Disease Visit [facility] Start: 02-26-2025 Walking distance 6 minutes [facility] Start: 02-03-2025 Annual PCP Team Chronic Disease Visit Annual PCP Team Chronic Disease Visit [facility] Start: 02-03-2025 BP Controlled (<130/80) BP Controlled (<130/80) [facility] in Start: 01-26-2025 End: 01-26-2025 Patient encounter procedure 01/26/2025 2:40 PM EDT Office Visit [facility] [place] [address] [place] [address] Mathieu Virgen MD [address] [place] [address] Blood sugar regulation, blood pressure not too low [facility] Sumeet Gonzalez Comment on above: Blood sugar regulation, blood pressure n ot too low Start: 01-22-2025 End: 01-22-2025 Patient encounter procedure 01/22/2025 3:15 PM EDT Office Visit Podiatry [address] [place] [address] Jamal Mace [address] [place] [address] left foot fracture Podiatry Comment on above: left foot fracture Start: 01-20-2025 [facility] Start: 01-19-2025 [facility] Start: 12-24-2024 Annual PCP Team Chronic Disease Visit Annual PCP Team Chronic Disease Visit [facility] Start: 12-24-2024 Anxiety Screening Anxiety Screening [facility] Start: 12-24-2024 Covid-19 Vaccine () Covid-19 Vaccine () [facility] Comment on above: Postponed from 05/18/2023 (Declined at t his time) Start: 12-24-2024 Depression Screening Depression Screening [facility] Start: 12-19-2024 End: 12-19-2024 Patient encounter procedure 12/19/2024 1:40 PM EDT Office Visit [facility] Sumeet Gonzalez [address] [facility] [place] [address] Mathieu Virgen MD [address] [place] [address] 6 mo follow up [facility] Sumeet Gonzalez Comment on above: 6 mo follow up Start: 12-09-2024 Hemoglobin A1c measurement HbA1C [facility] Start: 12-02-2024 End: 12-02-2024 Patient encounter procedure 12/02/2024 3:40 PM EDT Office Visit [facility] Sumeet Gonzalez [address] [facility], [place] [id number] Mathieu Virgen MD [address] [facility] [place] [address] All lab results Family Sumeet Gonzalez Comment on above: All lab results Start: 12-02-2024 End: 03-03-2025 CBC W Ordered Manual Differential panel - Blood PATHOLOGIST INTERPRETATION WITH CBC AND DIFF Lab Routine Leukocytosis, unspecified type Expected: 12/02/2024, Expires: 03/03/2025 [facility] Work Phone: Comment on above: Expected: 12/02/2024, Expires: Start: 11-27-2024 End: 02-26-2025 CBC panel - Blood by Automated count COMPLETE BLOOD COUNT Lab Routine 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) Expected: 11/27/2024, Expires: 02/26/2025 [facility] Comment on above: Expected: 11/27/2024, Expires: Start: 11-27-2024 End: 02-26-2025 Comprehensive metabolic 2000 panel - Serum or Plasma COMPREHENSIVE METABOLIC PANEL Lab Routine 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) Expected: 11/27/2024, Expires: 02/26/2025 [facility] Comment on above: Expected: 11/27/2024, Expires: Start: 11-27-2024 End: 02-26-2025 Hemoglobin A1c in Blood HEMOGLOBIN A1C Lab Routine 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) Expected: 11/27/2024, Expires: 02/26/2025 [facility] Comment on above: Expected: 11/27/2024, Expires: Start: 11-27-2024 Hepatitis B screening Urine Albumin:Creatinine Ratio [facility] Start: 11-27-2024 Hepatitis B surface antibody level LDL Cholesterol [facility] Start: 11-27-2024 End: 02-26-2025 Lipid 1996 panel - Serum or Plasma LIPID PANEL BASIC Lab Routine Nonobstructive atherosclerosis of coronary artery Pure hypercholesterolemia Expected: 11/27/2024, Expires: 02/26/2025 [facility] Work Phone: Comment on above: Expected: 11/27/2024, Expires: Start: 11-27-2024 End: 02-26-2025 Microalbumin/Creatinine [Mass Ratio] in Urine ALBUMIN/CREATININE RATIO, URINE Lab Routine 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) Expected: 11/27/2024, Expires: 02/26/2025 [facility] Comment on above: Expected: 11/27/2024, Expires: Start: 11-13-2024 End: 02-12-2025 Basic metabolic 2000 panel - Serum or Plasma BASIC METABOLIC PANEL Lab Routine 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) Essential hypertension Expected: 11/13/2024, Expires: 02/12/2025 [facility] Comment on above: Expected: 11/13/2024, Expires: Start: 11-13-2024 End: 02-12-2025 CBC panel - Blood by Automated count COMPLETE BLOOD COUNT Lab Routine 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) Essential hypertension Expected: 11/13/2024, Expires: 02/12/2025 [facility] Work Phone: Comment on above: Expected: 11/13/2024, Expires: Start: 11-13-2024 End: 02-12-2025 Magnesium [Mass/volume] in Serum or Plasma MAGNESIUM Lab Routine 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) Essential hypertension Expected: 11/13/2024, Expires: 02/12/2025 [facility] Comment on above: Expected: 11/13/2024, Expires: Start: 11-07-2024 Hemoglobin A1c measurement HbA1C [facility] Start: 11-03-2024 [facility] Start: 10-31-2024 End: 10-31-2024 Patient encounter procedure 10/31/2024 1:40 PM EST Office Visit [facility] [place] [address] [place] [address] Mathieu Virgen MD [address] [place] [address] 3 month f/u [facility] [place] Comment on above: 3 month f/u Start: 09-23-2024 Evaluation of diagnostic study results [facility] Start: 09-20-2024 [facility] Start: 09-20-2024 [facility] Start: 09-17-2024 Advance Directive Discussion Advance Directive Discussion [facility] Start: 09-17-2024 Medicare Advantage Annual Wellness Visit Medicare Advantage Annual Wellness Visit [facility] Start: 09-06-2024 Annual PCP Team Chronic Disease Visit Annual PCP Team Chronic Disease Visit [facility] Start: 09-06-2024 BP Controlled (<130/80) BP Controlled (<130/80) [facility] Start: 09-06-2024 RSV Vaccine (1 - 1-dose 60+ series) RSV Vaccine (1 - 1-dose 60+ series) [facility] Comment on above: Postponed from 2004 (Declined at t his time) Start: 09-06-2024 RSV Vaccine (1 - 1-dose 75+ series) RSV Vaccine (1 - 1-dose 75+ series) [facility] Comment on above: Postponed from 2019 (Declined at t his time) Start: 09-01-2024 [facility] Start: 07-29-2024 End: 10-28-2024 Basic metabolic 2000 panel - Serum or Plasma BASIC METABOLIC PANEL Lab Routine Systolic congestive heart failure, unspecified HF chronicity (HCC) Expected: 07/29/2024, Expires: 10/28/2024 [facility] Work Phone: Comment on above: Expected: 07/29/2024, Expires: Start: 07-29-2024 End: 10-28-2024 CBC W Auto Differential panel - Blood COMPLETE BLOOD COUNT AND DIFFERENTIAL Lab Routine Systolic congestive heart failure, unspecified HF chronicity (HCC) Expected: 07/29/2024, Expires: 10/28/2024 [facility] Comment on above: Expected: 07/29/2024, Expires: Start: 07-29-2024 End: 10-28-2024 Magnesium [Mass/volume] in Serum or Plasma MAGNESIUM Lab Routine Systolic congestive heart failure, unspecified HF chronicity (HCC) Expected: 07/29/2024, Expires: 10/28/2024 [facility] Comment on above: Expected: 07/29/2024, Expires: Start: 07-25-2024 End: 07-25-2024 ambulatory 07/25/2024 1:15 PM EST Results Only [facility] [address] [place], [place] [id number] Labs [facility] Comment on above: Labs Start: 07-23-2024 Annual PCP Team Chronic Disease Visit Annual PCP Team Chronic Disease Visit [facility] Start: 07-23-2024 BP Controlled (<130/80) BP Controlled (<130/80) [facility] in Start: 06-25-2024 End: 09-24-2024 Comprehensive metabolic 2000 panel - Serum or Plasma COMP METABOLIC PANEL Lab Routine Psoriatic arthritis (HCC) Expected: 06/25/2024, Expires: 09/24/2024 [facility] Work Phone: Comment on above: Expected: 06/25/2024, Expires: Start: 06-25-2024 End: 09-24-2024 Hemoglobin A1c in Blood HGB A1C Lab Routine Type 2 diabetes mellitus without complication, with long-term current use of insulin ([facility]) Expected: 06/25/2024, Expires: 09/24/2024 [facility] Work Phone: Comment on above: Expected: 06/25/2024, Expires: Start: 06-23-2024 End: 06-23-2024 Patient encounter procedure 06/23/2024 2:30 PM EDT Office Visit Neurology [address] [place], [place] [address] Abril Duval APRN.CBX OPERATOR [address] [place] [address] CJ (obstructive sleep apnea) [G47.33] Neurology Comment on above: CJ (obstructive sleep apnea) [G47.33] Start: 06-20-2024 End: 06-20-2024 Patient encounter procedure 06/20/2024 3:40 PM EDT Office Visit [facility] [place] [address] [place], [place] [address] Mathieu Virgen MD [address] [place], [place] [id number] Blood sugar levels [facility] [place] Comment on above: Blood sugar levels Start: 06-20-2024 End: 09-19-2024 25-hydroxyvitamin D3 [Mass/volume] in Serum or Plasma [facility] Work Phone: Comment on above: Expected: 06/20/2024, Expires: Start: 06-20-2024 End: 09-19-2024 CBC W Auto Differential panel - Blood [facility] Comment on above: Expected: 06/20/2024, Expires: Start: 06-20-2024 End: 09-19-2024 Creatine kinase [Enzymatic activity/volume] in Serum or Plasma [facility] Comment on above: Expected: 06/20/2024, Expires: Start: 06-20-2024 End: 09-19-2024 Thyrotropin [Units/volume] in Serum or Plasma [facility] Comment on above: Expected: 06/20/2024, Expires: Start: 06-18-2024 Glaucoma screening Dilated Retinal Exam [facility] Start: 06-09-2024 Annual PCP Team Chronic Disease Visit Annual PCP Team Chronic Disease Visit [facility] Start: 06-09-2024 BP Controlled (<130/80) BP Controlled (<130/80) [facility] Start: 06-06-2024 3 comp foot exam completed Diabetic Foot Exam [facility] Start: 06-06-2024 Annual PCP Team Chronic Disease Visit Annual PCP Team Chronic Disease Visit [facility] Start: 06-06-2024 Diabetic foot examination Diabetic Foot Exam [facility] Start: 06-06-2024 Hepatitis B Vaccine (1 of 3 - Risk 3-dose series) Hepatitis B Vaccine (1 of 3 - Risk 3-dose series) [facility] Comment on above: Postponed from 2004 (Declined at t his time) Start: 05-18-2024 ANNUAL PCP TEAM CHRONIC DISEASE VISIT ANNUAL PCP TEAM CHRONIC DISEASE VISIT [facility] Start: 05-18-2024 BP CONTROLLED (<130/80) BP CONTROLLED (<130/80) [facility] Start: 05-18-2024 Covid-19 Vaccine () Covid-19 Vaccine () [facility] Start: 05-18-2024 Covid-19 Vaccine ( season) Covid-19 Vaccine () [facility] Start: 05-18-2024 Influenza vaccination Influenza Vaccine (#1) [facility] Start: 05-01-2024 ANNUAL PCP TEAM CHRONIC DISEASE VISIT ANNUAL PCP TEAM CHRONIC DISEASE VISIT [facility] Start: 05-01-2024 BP CONTROLLED (<130/80) BP CONTROLLED (<130/80) [facility] Start: 04-30-2024 COVID-19 VACCINE (#1) COVID-19 VACCINE (#1) [facility] Comment on above: Postponed from 1944 (Declined at t his time) Start: 04-30-2024 SHINGRIX VACCINE (1 of 2) SHINGRIX VACCINE (1 of 2) [facility] Comment on above: Postponed from 1994 (Insurance Cov erage) Start: 04-30-2024 Urine microalbumin profile [facility] Comment on above: Postponed from 1963 (Insurance Cov erage) Start: 04-30-2024 End: 04-30-2024 ambulatory 04/30/2024 9:45 AM EDT OT/PT/Speech Visit [facility] Physical Therapy [address] [place] [address] Rosa Orta, PT Venous incompetence [I87.2] [facility] Comment on above: Venous incompetence [I87.2] Start: 04-14-2024 End: 04-14-2024 Patient encounter procedure 04/14/2024 1:40 PM EDT Office Visit [facility] [place] [address] [place] [address] Julianna Hood APRN.CBX OPERATOR [address] [place], [place] [id number] Blood in Urine [facility] [place] Comment on above: Blood in Urine Start: 04-10-2024 End: 04-10-2024 Patient encounter procedure 04/10/2024 11:40 AM EDT Office Visit [facility] [place] [address] [facility] [place] [address] Vikas Travis PA-C [address] [place] [address] 6 week f/u [facility] [place] Comment on above: 6 week f/u Start: 03-19-2024 End: 03-19-2024 Patient encounter procedure 03/19/2024 12:30 PM EDT Office Visit Vasculary Surgery [address] [place] [address] 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, 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]; Venous incompetence [I87.2] Vascul[facility] Surgery Comment on above: 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 Start: 03-02-2024 ANNUAL PCP TEAM CHRONIC DISEASE VISIT ANNUAL PCP TEAM CHRONIC DISEASE VISIT [facility] Start: 03-02-2024 BP CONTROLLED (<130/80) BP CONTROLLED (<130/80) [facility] Start: 02-28-2024 End: 05-29-2024 Basic metabolic 2000 panel - Serum or Plasma [facility] Work Phone: Comment on above: Expected: 02/28/2024, Expires: Start: 02-28-2024 End: 05-29-2024 Cortisol [Mass/volume] in Serum or Plasma CORTISOL, SERUM Lab Routine Weight gain Hypersomnolence Cushingoid facies Expected: 02/28/2024, Expires: 05/29/2024 [facility] Comment on above: Expected: 02/28/2024, Expires: Start: 02-28-2024 Hemoglobin A1c measurement HbA1C [facility] Start: 02-28-2024 End: 05-29-2024 Natriuretic peptide.B prohormone N-Terminal [Mass/volume] in Serum or Plasma [facility] Comment on above: Expected: 02/28/2024, Expires: 4 Start: 02-28-2024 End: 02-28-2024 Patient encounter procedure 02/28/2024 11:00 AM EDT Office Visit [facility] [place] [address] [place], [place] [id number] Vikas Travis PA-C [address] [place] [address] 4 week follow up [facility] [place] Comment on above: 4 week follow up Start: 02-17-2024 ANNUAL PCP TEAM CHRONIC DISEASE VISIT ANNUAL PCP TEAM CHRONIC DISEASE VISIT [facility] Start: 02-04-2024 End: 05-05-2024 Comprehensive metabolic 2000 panel - Serum or Plasma [facility] Work Phone: Comment on above: Expected: 02/04/2024, Expires: Start: 02-04-2024 End: 05-05-2024 Natriuretic peptide.B prohormone N-Terminal [Mass/volume] in Serum or Plasma [facility] Comment on above: Expected: 02/04/2024, Expires: 4 Start: 02-04-2024 End: 05-05-2024 Thyrotropin [Units/volume] in Serum or Plasma [facility] Comment on above: Expected: 02/04/2024, Expires: Start: 01-20-2024 ANNUAL PCP TEAM CHRONIC DISEASE VISIT ANNUAL PCP TEAM CHRONIC DISEASE VISIT [facility] Start: 12-05-2023 End: 02-04-2024 Basic metabolic 2000 panel - Serum or Plasma BASIC METABOLIC PNL Lab Routine Type 2 diabetes mellitus with microalbuminuria, with long-term current use of insulin (HCC) Expected: 12/05/2023, Expires: 02/04/2024 [facility] Work Phone: Comment on above: Expected: 12/05/2023, Expires: Start: 12-05-2023 End: 02-04-2024 CBC W Auto Differential panel - Blood CBC + DIFF Lab Routine Type 2 diabetes mellitus with microalbuminuria, with long-term current use of insulin (HCC) Expected: 12/05/2023, Expires: 02/04/2024 [facility] Work Phone: Comment on above: Expected: 12/05/2023, Expires: Start: 12-05-2023 End: 02-04-2024 Hemoglobin A1c in Blood HGB A1C Lab Routine Type 2 diabetes mellitus with microalbuminuria, with long-term current use of insulin (HCC) Expected: 12/05/2023, Expires: 02/04/2024 [facility] Work Phone: Comment on above: Expected: 12/05/2023, Expires: 4 Start: 12-05-2023 End: 02-04-2024 Lipid 1996 panel - Serum or Plasma LIPID PANEL BASIC Lab Routine Mixed hyperlipidemia Expected: 12/05/2023, Expires: 02/04/2024 [facility] Work Phone: Comment on above: Expected: 12/05/2023, Expires: Start: 11-30-2023 ANNUAL PCP TEAM CHRONIC DISEASE VISIT ANNUAL PCP TEAM CHRONIC DISEASE VISIT [facility] Start: 11-28-2023 End: 02-27-2024 ALBUMIN/CREAT RATIO RND UR ALBUMIN/CREAT RATIO RND UR Lab Routine Type 2 diabetes mellitus without complication, with long-term current use of insulin (HCC) Expected: 11/28/2023, Expires: 02/27/2024 [facility] Work Phone: Comment on above: Expected: 11/28/2023, Expires: Start: 11-28-2023 Hepatitis B screening URINE ALBUMIN:CREATININE RATIO [facility] Start: 11-28-2023 Hepatitis B surface antibody level LDL CHOLESTEROL [facility] Start: 11-16-2023 Hemoglobin A1c measurement HbA1C [facility] Start: 11-16-2023 Hemoglobin A1c/Hemoglobin.total in Blood HbA1C [facility] Start: 09-22-2023 [facility] Start: 09-22-2023 [facility] Start: 09-17-2023 Advance Directive Discussion Advance Directive Discussion [facility] Start: 09-17-2023 Depression Assessment Depression Assessment [facility] Start: 06-01-2023 End: 08-01-2023 Hemoglobin A1c in Blood HGB A1C Lab Routine Type 2 diabetes mellitus with microalbuminuria, with long-term current use of insulin ([facility]) Expected: 06/01/2023, Expires: 08/01/2023 [facility] Work Phone: Comment on above: Expected: 06/01/2023, Expires: Start: 05-31-2023 3 comp foot exam completed DIABETIC FOOT EXAM [facility] Start: 05-31-2023 ANNUAL PCP TEAM CHRONIC DISEASE VISIT ANNUAL PCP TEAM CHRONIC DISEASE VISIT [facility] Start: 05-30-2023 Hemoglobin A1c/Hemoglobin.total in Blood HBA1C [facility] Start: 05-30-2023 End: 07-30-2023 Lipid 1996 panel - Serum or Plasma LIPID PANEL BASIC Lab Routine Type 2 diabetes mellitus with microalbuminuria, with long-term current use of insulin (HCC) Expected: 05/30/2023, Expires: 07/30/2023 [facility] Work Phone: Comment on above: Expected: 05/30/2023, Expires: 3 Start: 05-18-2023 End: 07-18-2023 Comprehensive metabolic 2000 panel - Serum or Plasma [facility] Work Phone: Comment on above: Expected: 05/18/2023, Expires: 3 Start: 05-18-2023 End: 07-18-2023 Creatine kinase [Enzymatic activity/volume] in Serum or Plasma [facility] Work Phone: Comment on above: Expected: 05/18/2023, Expires: 3 Start: 05-18-2023 Influenza vaccination [facility] Start: 05-18-2023 End: 07-18-2023 Urinalysis complete panel - Urine [facility] Work Phone: Comment on above: Expected: 05/18/2023, Expires: 3 Start: 05-18-2023 End: 07-18-2023 URINALYSIS, DIPSTICK ONLY [facility] Work Phone: Comment on above: Expected: 05/18/2023, Expires: 3 Start: 03-03-2023 Adult depression screening assessment DEPRESSION SCREENING [facility] Start: 03-03-2023 ANNUAL PCP TEAM CHRONIC DISEASE VISIT ANNUAL PCP TEAM CHRONIC DISEASE VISIT [facility] Start: 03-03-2023 BP CONTROLLED (<130/80) BP CONTROLLED (<130/80) [facility] Start: 03-02-2023 End: 05-02-2023 Comprehensive metabolic 2000 panel - Serum or Plasma [facility] Work Phone: Comment on above: Expected: 03/02/2023, Expires: 3 Start: 03-02-2023 End: 05-02-2023 Lipase [Enzymatic activity/volume] in Serum or Plasma [facility] Work Phone: Comment on above: Expected: 03/02/2023, Expires: 3 Start: 01-27-2023 BP CONTROLLED (<130/80) BP CONTROLLED (<130/80) [facility] Start: 11-29-2022 End: 01-29-2023 CBC W Ordered Manual Differential panel - Blood PATHOLOGIST INTERPRETATION WITH CBC AND DIFF Lab Routine Leukocytosis, unspecified type Expected: 11/29/2022, Expires: 01/29/2023 [facility] Work Phone: Comment on above: Expected: 11/29/2022, Expires: 3 Start: 11-27-2022 End: 01-27-2023 ALBUMIN/CREAT RATIO RND UR [facility] Work Phone: Comment on above: Expected: 11/27/2022, Expires: 3 Start: 11-27-2022 End: 01-27-2023 CBC W Auto Differential panel - Blood [facility] Work Phone: Comment on above: Expected: 11/27/2022, Expires: 3 Start: 11-27-2022 End: 01-27-2023 Comprehensive metabolic 2000 panel - Serum or Plasma [facility] Work Phone: Comment on above: Expected: 11/27/2022, Expires: 3 Start: 11-27-2022 End: 01-27-2023 Hemoglobin A1c in Blood [facility] Work Phone: Comment on above: Expected: 11/27/2022, Expires: 3 Start: 11-21-2022 Patient discharge [facility] Start: 11-21-2022 ANNUAL PCP TEAM CHRONIC DISEASE VISIT ANNUAL PCP TEAM CHRONIC DISEASE VISIT [facility] Start: 11-21-2022 BP CONTROLLED (<130/80) BP CONTROLLED (<130/80) [facility] Start: 11-21-2022 Following clinical pathway protocol [facility] Start: 11-21-2022 Assessment of risk of venous thromboembolism [facility] Start: 11-21-2022 Care regimes management [facility] Start: 11-21-2022 Fall prevention [facility] Start: 11-21-2022 Incentive spirometry [facility] Start: 11-21-2022 Inhalation therapy procedure [facility] Start: 11-21-2022 Insertion of catheter into peripheral vein [facility] Start: 11-21-2022 Introduction of urinary catheter [facility] Start: 11-21-2022 Measuring intake and output [facility] Start: 11-21-2022 Oxygen therapy [facility] Start: 11-21-2022 Providing care according to standard [facility] Start: 11-21-2022 Provision of activity privileges [facility] Start: 11-21-2022 Referral to service [facility] Start: 11-21-2022 [facility] Start: 11-21-2022 Admission procedure [facility] Start: 11-21-2022 [facility] Start: 10-18-2022 Glaucoma screening Dilated Retinal Exam [facility] Start: 10-18-2022 Hepatitis C antibody, confirmatory test DILATED RETINAL EXAM [facility] Start: 09-17-2022 ADVANCE DIRECTIVE DISCUSSION ADVANCE DIRECTIVE DISCUSSION [facility] Start: 09-17-2022 DEPRESSION ASSESSMENT DEPRESSION ASSESSMENT [facility] Start: 08-30-2022 End: 10-30-2022 Basic metabolic 2000 panel - Serum or Plasma BASIC METABOLIC PNL Lab Routine Type 2 diabetes mellitus without complication, with long-term current use of insulin (HCC) Expected: 08/30/2022, Expires: 10/30/2022 [facility] Work Phone: Comment on above: Expected: 08/30/2022, Expires: 3 Start: 08-30-2022 End: 10-30-2022 CBC W Ordered Manual Differential panel - Blood PATHOLOGIST INTERPRETATION WITH CBC AND DIFF Lab Routine Monocytosis Expected: 08/30/2022, Expires: 10/30/2022 [facility] Work Phone: Comment on above: Expected: 08/30/2022, Expires: 3 Start: 08-30-2022 End: 10-30-2022 Hemoglobin A1c in Blood HGB A1C Lab Routine Type 2 diabetes mellitus with microalbuminuria, with long-term current use of insulin (HCC) Expected: 08/30/2022, Expires: 10/30/2022 [facility] Work Phone: Comment on above: Expected: 08/30/2022, Expires: 3 Start: 08-29-2022 Hemoglobin A1c/Hemoglobin.total in Blood HBA1C [facility] Start: 08-25-2022 Hemoglobin A1c/Hemoglobin.total in Blood HBA1C [facility] Start: 08-16-2022 Hepatitis B screening URINE ALBUMIN:CREATININE RATIO [facility] Start: 08-16-2022 Hepatitis B surface antibody level LDL CHOLESTEROL [facility] Start: 06-03-2022 End: 08-03-2022 Basic metabolic 2000 panel - Serum or Plasma BASIC METABOLIC PNL Lab Routine Type 2 diabetes mellitus with microalbuminuria, with long-term current use of insulin (HCC) Expected: 06/03/2022, Expires: 08/03/2022 [facility] Work Phone: Comment on above: Expected: 06/03/2022, Expires: 2 Start: 06-03-2022 End: 08-03-2022 CBC W Auto Differential panel - Blood CBC + DIFF Lab Routine Type 2 diabetes mellitus with microalbuminuria, with long-term current use of insulin (HCC) Expected: 06/03/2022, Expires: 08/03/2022 [facility] Work Phone: Comment on above: Expected: 06/03/2022, Expires: 2 Start: 06-03-2022 End: 08-03-2022 Hemoglobin A1c in Blood HGB A1C Lab Routine Type 2 diabetes mellitus with microalbuminuria, with long-term current use of insulin (HCC) Expected: 06/03/2022, Expires: 08/03/2022 [facility] Work Phone: Comment on above: Expected: 06/03/2022, Expires: 2 Start: 06-03-2022 End: 08-03-2022 Hepatitis C virus Ab [Presence] in Serum HEP C AB IA W/CONF SCRN Lab Routine Need for hepatitis C screening test Expected: 06/03/2022, Expires: 08/03/2022 [facility] Work Phone: Comment on above: Expected: 06/03/2022, Expires: 2 Start: 05-18-2022 Influenza vaccination INFLUENZA (#1) [facility] Start: 05-06-2022 3 comp foot exam completed DIABETIC FOOT EXAM [facility] Start: 04-08-2022 [facility] Work Phone: Start: 02-11-2022 End: 04-13-2022 Hemoglobin A1c/Hemoglobin.total in Blood [facility] Comment on above: Expected: 02/11/2022, Expires: 2 Start: 01-12-2022 End: 03-14-2022 Basic metabolic 2000 panel - Serum or Plasma BASIC METABOLIC PNL Lab Routine Type 2 diabetes mellitus without complication, with long-term current use of insulin (HCC) Expected: 01/12/2022, Expires: 03/14/2022 [facility] Work Phone: Comment on above: Expected: 01/12/2022, Expires: 2 Start: 09-17-2021 ADVANCE DIRECTIVE DISCUSSION ADVANCE DIRECTIVE DISCUSSION [facility] Start: 09-17-2021 DEPRESSION ASSESSMENT DEPRESSION ASSESSMENT [facility] Start: 07-16-2019 Adult depression screening assessment DEPRESSION SCREENING [facility] Start: 2019 RSV Vaccine (1 - 1-dose 75+ series) RSV Vaccine (1 - 1-dose 75+ series) [facility] Start: 2004 Hepatitis B Vaccine (1 of 3 - Risk 3-dose series) Hepatitis B Vaccine (1 of 3 - Risk 3-dose series) [facility] Start: 2004 RSV Vaccine (1 - 1-dose 60+ series) RSV Vaccine (1 - 1-dose 60+ series) [facility] Start: 1994 SHINGRIX VACCINE (1 of 2) SHINGRIX VACCINE (1 of 2) [facility] Start: 1963 Urine microalbumin profile [facility] Start: 1962 BP CONTROLLED (<130/80) BP CONTROLLED (<130/80) [facility] in Start: 1962 HEPATITIS C SCREENING HEPATITIS C SCREENING [facility] Start: 1950 PNEUMOCOCCAL: 65+ (1 - PCV) PNEUMOCOCCAL: 65+ (1 - PCV) [facility] Start: 1949 COVID-19 VACCINE (#1) COVID-19 VACCINE (#1) [facility] Start: 1949 COVID-19 VACCINE (1) COVID-19 VACCINE (1) [facility] Start: 1944 COVID-19 VACCINE (#1) COVID-19 VACCINE (#1) [facility] CBC W Auto Different ial panel - Blood CBC + DIFF Lab Routine Near syncope 05/18/2023 4:29 PM EDT [facility] Work Phone: COVID & INFLUENZA A/ B & RSV NAAT, ROUTINE COVID & INFLUENZA A/B & RSV NAAT, ROUTINE Microbiology Routine Suspected COVID-19 virus infection 06/09/2023 11:25 AM EDT [facility] Work Phone: End: 05-18-2024 ECG COMPLETE ECG COMPLETE ECG Routine Near syncope Fall, initial encounter 1 Occurrences starting 05/18/2023 until 05/18/2024 [facility] Work Phone: Comment on above: 1 Occurrences starting 05/18/2023 until 05/18/2024 ECG COMPLETE ECG COMPLETE ECG Routine SOB (shortness of breath) Bilateral leg edema Weight increase 02/04/2024 11:01 AM T [facility] End: 02-27-2025 Echocardiography ECHO Cardiology Routine Bilateral leg edema SOB (shortness of breath) Weight gain 1 Occurrences starting 02/28/2024 until 02/27/2025 [facility] Comment on above: 1 Occurrences starting 02/28/2024 until 02/27/2025 Ferritin [Mass/volum e] in Serum or Plasma [facility] Lipid 1996 panel - S leatha or Plasma LIPID PANEL BASIC Lab Routine Type 2 diabetes mellitus with microalbuminuria, with long-term current use of insulin (HCC) 11/27/2022 9:20 AM T [facility] Work Phone: Measurement of respiratory function [facility] Measurement of respiratory function [facility] Patient Education [facility] Work Phone: Patient referral [facility] Work Phone: ROUTINE FLU A/B + RSV ROUTINE FL U A/B + RSV Lab Routine Suspected COVID-19 virus infection 06/09/2023 11:25 AM T [facility] Work Phone: SARS-CoV-2 (COVID-19 ) RNA [Presence] in Respiratory specimen by DARRIAN with probe detection COVID NAAT, ROUTINE Microbiology Routine Acute upper respiratory infection 05/18/2023 4:19 PM EDT [facility] Work Phone: SARS-CoV-2 (COVID-19 ) RNA [Presence] in Respiratory specimen by DARRIAN with probe detection COVID NAAT, UPPER RESPIRATORY, ROUTINE Microbiology Routine Suspected COVID-19 virus infection 06/09/2023 11:25 AM T [facility] Work Phone: End: 02-27-2025 US Vein - bilateral US VENOUS INCOMPETENCY [facility] Vascular Lab Routine Varicose veins of both lower extremities with inflammation 1 Occurrences starting 02/28/2024 until 02/27/2025 [facility] Comment on above: 1 Occurrences starting 02/28/2024 until 02/27/2025 Walking distance 6 minutes [facility] End: 03-05-2025 XR Chest PA and Lateral XR CHEST 2V FRONTAL/LAT Radiology Routine SOB (shortness of breath) Bilateral leg edema Weight increase 1 Occurrences starting 02/04/2024 until 03/05/2025 [facility] Comment on above: 1 Occurrences starting 02/04/2024 until 03/05/2025 XR Chest PA and Lateral XR CHEST 2V FRONTAL/LAT Radiology Routine SOB (shortness of breath) Bilateral leg edema Weight increase 02/04/2024 12:26 PM EDT [facility] XR Foot - left AP an d Lateral and oblique XR FOOT GENERAL 3V AP/LAT/OBL LEFT Radiology Routine Closed fracture of foot, unspecified laterality, initial encounter 01/22/2025 4:13 PM EDT [facility] Work Phone: End: 02-21-2026 XR Foot - left AP and Lateral and oblique XR FOOT GENERAL 3V AP/LAT/OBL LEFT Radiology Routine Closed fracture of foot, unspecified laterality, initial encounter 1 Occurrences starting 01/22/2025 until 02/21/2026 [facility] Work Phone: Comment on above: 1 Occurrences starting 01/22/2025 until 02/21/2026 End: 08-21-2024 XR HIP GENERAL 3V PELV/AP/LAT RIGHT XR HIP GENERAL 3V PELV/AP/LAT RIGHT Radiology Routine Acute hip pain, right 1 Occurrences starting 07/23/2023 until 08/21/2024 [facility] Work Phone: Comment on above: 1 Occurrences starting 07/23/2023 until 08/21/2024 XR HIP GENERAL 3V PELV/AP/LAT RIGHT XR HIP GENERAL 3V PELV/AP/LAT RIGHT Radiology Routine Acute hip pain, right 07/23/2023 3:10 PM EST [facility] Work Phone: [facility] Immunizations Immunization Date Immunization Notes Care Provider Rashida light 06-20-2024 influenza, high dose seasonal, preservative-free Zoila Wright [employer] Work Phone: [facility] 06-20-2024 influenza virus vacc ine, unspecified formulation Mathieu Virgen MD Work Phone: [facility] 06-06-2023 influenza (HD-IIV4) vaccine, age 65+ yr, high dose, quadrivalent, PF (FLUZONE HIGH-DOSE) Mathieu Virgen MD Work Phone: [facility] 06-06-2023 influenza virus vacc ine, unspecified formulation FERNY Travis PA-C Work Phone: [facility] 05-31-2022 influenza, high-dose , quadrivalent vaccine (FLUZONE HIGH DOSE QUADRIVALENT) Mathieu Virgen MD Work Phone: [facility] 05-31-2022 influenza virus vacc ine, unspecified formulation Mathieu Virgen MD Work Phone: [facility] 06-17-2021 influenza, injectabl e, quadrivalent, preservative free [facility] 06-17-2021 influenza, seasonal, injectable Mathieu Virgen MD Work Phone: [facility] 06-17-2021 influenza, seasonal, injectable, preservative free Mathieu Virgen MD Work Phone: [facility] 07-26-2020 influenza, high-dose , quadrivalent vaccine (FLUZONE HIGH DOSE QUADRIVALENT) Mathieu Virgen MD Work Phone: [facility] 08-21-2019 influenza, injectabl e, quadrivalent, preservative free [facility] 08-21-2019 influenza, seasonal, injectable Mathieu Virgen MD Work Phone: [facility] 08-21-2019 influenza, seasonal, injectable, preservative free Mathieu Virgen MD Work Phone: [facility] Work Phone: 07-04-2019 influenza, high dose seasonal, preservative-free Mathieu Virgen MD Work Phone: [facility] 07-16-2018 influenza, high dose seasonal, preservative-free Mathieu Virgen MD Work Phone: [facility] 08-27-2017 influenza, high dose seasonal, preservative-free Mathieu Virgen MD Work Phone: [facility] 08-17-2016 pneumococcal polysaccharide vaccine, 23 valent Mathieu Virgen MD Work Phone: [facility] 06-14-2016 influenza, high dose seasonal, preservative-free Mathieu Virgen MD Work Phone: [facility] Work Phone: 07-14-2015 influenza, high dose seasonal, preservative-free Mathieu Virgen MD Work Phone: [facility] Work Phone: 06-16-2015 pneumococcal conjuga te vaccine, 13 valent Mathieu Virgen MD Work Phone: [facility] Work Phone: 06-25-2014 influenza, seasonal, injectable Mathieu Virgen MD Work Phone: [facility] 07-12-2013 influenza virus vacc ine, unspecified formulation Mathieu Virgen MD Work Phone: [facility] 06-15-2012 influenza virus vacc ine, unspecified formulation Mathieu Virgen MD Work Phone: [facility] Work Phone: 06-07-2011 influenza virus vacc ine, unspecified formulation Mathieu Virgen MD Work Phone: [facility] Work Phone: 07-02-2010 influenza virus vacc ine, unspecified formulation Mathieu Virgen MD Work Phone: [facility] Work Phone: 07-14-2009 pneumococcal polysaccharide vaccine, 23 valent Mathieu Virgen MD Work Phone: [facility] 06-09-2009 influenza virus vacc ine, unspecified formulation Mathieu Virgen MD Work Phone: [facility] 07-22-2008 influenza virus vacc ine, unspecified formulation Mathieu Virgen MD Work Phone: [facility] 07-27-2007 influenza virus vacc ine, unspecified formulation Mathieu Virgen MD Work Phone: [facility] Work Phone: 07-23-2006 influenza virus vacc ine, unspecified formulation Mathieu Virgen MD Work Phone: [facility] Work Phone: 07-13-2005 influenza virus vacc ine, unspecified formulation Mathieu Virgen MD Work Phone: [facility] Work Phone: Payers Date Payer Category Payer Self-pay [id number] 2014 Medicare (Managed Care) PRIMETIM E [id number] 2014 Unknown PRIMETIME PRIMET FRANCA HMO POS [id number] 2014-Present [phone] [address] [place] [address] [facility] [id number] 2014 Unknown [id number]. 2.7.3.848105[facility] 2014 Unknown [id number] Unknown [id number] 2.16.840.1.630404.3.579. 2.462 Unknown [id number] 2.16.840.1.203890.3.579. 2.462 Unknown [id number] 2.16.840.1.415046.3.579. 2.462 Unknown [id number] 2.16.840.1.677384.3.579. 2.462 Unknown [id number] 2.16.840.1.148445.3.579. 2.462 Unknown [id number] 2.16.840.1.577048.3.579. 2.462 Unknown [id number] 2.16.840.1.968187.3.579. 2.462 Unknown [id number] 2.16.840.1.659767.3.579. 2.462 Unknown [id number] 2.16.840.1.885630.3.579. 2.462 Unknown [id number] 2.16.840.1.298106.3.579. 2.462 Unknown [id number] 2.16.840.1.935521.3.579. 2.462 Unknown [id number] 2.16.840.1.401673.3.579. 2.462 Unknown [id number] 2.16.840.1.292180.3.579. 2.462 Unknown [id number] 2.16.840.1.738563.3.579. 2.462 Unknown [id number] 2.16.840.1.366765.3.579. 2.462 Unknown [id number] 2.16.840.1.334621.3.579. 2.462 Unknown [id number] 2.16.840.1.746704.3.579. 2.462 Unknown [id number] 2.16.840.1.241052.3.579. 2.462 Unknown [id number] 2.16.840.1.122583.3.579. 2.462 Unknown [id number] 2.16.840.1.133617.3.579. 2.462 Unknown [id number] 2.16.840.1.062610.3.579. 2.462 Unknown [id number] 2.16.840.1.296288.3.579. 2.462 Unknown [id number] 2.16.840.1.332015.3.579. 2.462 Unknown [id number] 2.840.1.756638.3.579. 2.462 Unknown [id number] 2.840.1.552129.3.579. 2.462 Unknown [id number] 2.840.1.963835.3.579. 2.462 Unknown [id number] 2.840.1.648344.3.579. 2.462 Unknown [id number] 2.840.1.812434.3.579. 2.462 Unknown [id number] 2.840.1.128891.3.579. 2.462 Unknown [id number] 2.16840.1.117133.3.579. 2.462 Unknown [id number] 2.840.1.774847.3.579. 2.462 Unknown [id number] 2.16840.1.717372.3.579. 2.462 Unknown [id number] 2.16840.1.302398.3.579. 2.462 Unknown [id number] 2.16.840.1.786580.3.579. 2.462 Unknown [id number] 2.16.840.1.400361.3.579. 2.462 Unknown [id number] 2.840.1.927665.3.579. 2.462 Unknown [id number] 2.16.840.1.633174.3.579. 2.462 Unknown [id number] 2.16.840.1.898390.3.579. 2.462 Unknown [id number] 2.16.840.1.069274.3.579. 2.462 Unknown [id number] 2.16.840.1.995835.3.579. 2.462 Unknown [id number] 2.16.840.1.656828.3.579. 2.462 Unknown [id number] 2.16.840.1.165712.3.579. 2.462 Unknown [id number] 2.16.840.1.053133.3.579. 2.462 Unknown [id number] 2.16.840.1.453884.3.579. 2.462 Unknown [id number] 2.16.840.1.718577.3.579. 2.462 Unknown [id number] 2.16.840.1.719306.3.579. 2.462 Unknown [id number] 2.16.840.1.278317.3.579. 2.462 Unknown [id number] 2.16.840.1.402109.3.579. 2.462 Unknown [id number] 2.16.840.1.532054.3.579. 2.462 Unknown [id number] 2.16.840.1.923407.3.579. 2.462 Unknown [id number] 2.16.840.1.654758.3.579. 2.462 Social History Date Type Detail Facility Start: 08-17-2016 End: 04-29-2025 Tobacco smoking status NHIS Ex-smoker [facility] Start: 09-17-1970 End: 09-17-1980 History of tobacco use Current smoker [facility] Start: 09-17-1970 End: 09-17-1980 History of tobacco use Cigarette Smoker [facility] Start: 11-21-2021 End: 01-22-2025 Alcohol intake Current non-drinker of alcohol (finding) [facility] Start: 1945 Sex Assigned At Not on file [facility] Start: 12-25-2020 End: 05-31-2022 Exposure to SARS-CoV-2 (event) Not sure [facility] Start: 01-30-2022 End: 09-22-2023 Tobacco smoking status NHIS Unknown if ever smoked [facility] Start: 10-26-2021 Cigarettes [facility] Start: 1945 Sex Assigned At Male [facility] Start: 03-29-2022 End: 04-08-2022 Exposure to SARS-CoV-2 (event) Unable to assess [facility] Work Phone: Start: 08-17-2016 End: 01-18-2023 Cigarettes smoked current (pack per day) - Reported 2 [facility] Start: 08-17-2016 End: 06-20-2024 Tobacco use and exposure Smokeless tobacco non-user [facility] Start: 01-19-2023 History SDOH Alcohol Frequency 1 [facility] Start: 01-19-2023 History SDOH Alcohol Std Drinks 0 [facility] Start: 01-19-2023 History SDOH Social Connections Phone 5 [facility] Start: 01-19-2023 History SDOH Social Connections Get Together 3 [facility] Start: 01-19-2023 History SDOH Social Connections Membership 2 [facility] Start: 01-19-2023 History SDOH Social Connections Living 4 [facility] Start: 01-18-2023 End: 06-19-2024 Social connection and isolation panel [facility] Do you belong to any clubs or organizations such as spiritism groups, unions, fraternal or athletic groups, or school groups? No [facility] Are you now , , , , never or living with a partner? [facility] How often to you hav e a drink containing alcohol? Never [facility] Start: 08-18-[address] inks containing alcohol do you have on a typical day? Patient does not drink [facility] How hard is it for y ou to pay for the very basics like food, housing, medical care, and heating Not very hard [facility] Do you feel stress - tense, restless, nervous, or anxious, or unable to sleep at night because your mind is troubled all the time - these days [OSQ] Not at all [facility] (I/We) worried wheth er (my/our) food would run out before (I/we) got money to buy more. Never true [facility] Start: 01-18-2023 Gender identity Identifies as male gender (finding) [facility] Start: 12-08-2024 End: 12-09-2024 Sex Male (finding) [facility] Medical Equipment Procedure Code Equipment [...] exploration of common bile duct CLIP,HEMOLOLILIA CHRISTIAN WELILAI FDA Start: 11-19-2019 Total cholecystectomy with exploration of common bile duct CLIP,HEMOLOLILIA CHRISTIAN WECK FDA Start: 11-19-2019 Total cholecystectomy with exploration of common bile duct CLIP,HEMOLOLILIA WEIR FDA Start: 11-19-2019 Total cholecystectomy with exploration of common bile duct CLIP,Bioapter FDA Start: 11-19-2019 Total cholecystectomy with exploration of common bile duct CLIP,Bioapter FDA Start: 11-19-2019 1 Each twice daily. Accucheck compact test strips, dx-NIDDM [id number] Start: 08-20-2013 Comment on above: 1 Each twice daily. Accucheck compact test strips, dx-NIDDM [id number], [id number], [id number] Start: 08-20-2013 End: 06-20-2024 Comment on above: 1 Each once daily. D X: E11.9 Insulin: Yes Test blood sugar(s) 1 times daily. Dx: 250.00. Insulin: Yes Goals Date Patient Goal Desired Activity /State Functional Status Date Assessment Result Facility 04-30-2025 Functional status Ambulates [facility] Work Phone: 04-29-2025 Functional status None [facility] Work Phone: 11-21-2022 Functional status Activity Abili ty Independent [facility] Work Phone: 03-31-2015 Are you deaf, or do you have serious difficulty hearing No 03/31/2015 12:49 PM Gregoria Martinez RN No [facility] 03-31-2015 Are you blind, or do you have serious difficulty seeing, even when wearing glasses No 03/31/2015 12:49 PM Gregoria Martinez RN No [facility] 03-31-2015 Do you have serious difficulty walking or climbing stairs No 03/31/2015 12:49 PM Gregoria Martinez RN No [facility] 03-31-2015 Do you have difficul ty dressing or bathing No 03/31/2015 12:49 PM Gregoria Martinez RN No [facility] 03-31-2015 Because of a physica l, mental, or emotional condition, do you have difficulty doing errands alone such as visiting a physician's office or shopping No 03/31/2015 12:49 PM Gregoria Martinez RN No [facility] Mental Status Date Assessment Result Facility 04-30-2025 Cognitive function Voice/Name [facility] Work Phone: 04-29-2025 Cognitive function Level Of Cons ciousness Awake;Alert;Appropriate;Fol lows Commands [facility] Work Phone: 01-19-2025 Cognitive function Voice/Name [facility] Work Phone: 09-20-2024 Cognitive function Awake;Alert;A ppropriate;Fol lows Commands [facility] Work Phone: 09-01-2024 Cognitive function Level Of Cons ciousness Awake;Alert;Appropriate;Fol lows Commands [facility] Work Phone: 09-22-2023 Cognitive function Level Of Cons ciousness Awake;Alert;Appropriate;Fol lows Commands [facility] Work Phone: 03-31-2023 Cognitive function Level Of Cons ciousness Awake;Alert;Appropriate;Fol lows Commands [facility] Work Phone: 02-24-2023 Cognitive function Level Of Cons ciousness Drowsy [facility] Work Phone: 11-21-2022 Cognitive function Voice/Name [facility] Work Phone: 11-21-2022 Cognitive function Awake;Alert;Appropriat e [facility] Work Phone: 08-08-2022 Cognitive function Level Of Cons ciousness Awake;Alert;Appropriate;Fol lows Commands;Responds to vocal stimuli [facility] Work Phone: 04-08-2022 Cognitive function Level Of Cons ciousness Awake;Alert;Appropriate;Fol lows Commands [facility] Work Phone: 03-31-2015 Because of a physica l, mental, or emotional condition, do you have serious difficulty concentrating, remembering, or making decisions No 03/31/2015 12:49 PM EDT Gregoria Moeller RN No [facility] Clinical Notes 01-24-2021 to 04-30-2025 Note Date & Type Note Facility 04-30-2025 Discharge summary Note Date/Time April 30, 2025 4:01pm [facility] Medical Records Department [address] [place] [address] Instructions for Home/Discharge Instructions 04/30/25 1558 MR#: [id number] Acct: [id number] Name: FAISAL ALARCON Rep #:[id number] : 1945 80 From: Chilango hanley DO [...] DO; Dr. Mathieu Virgen MD ~ Signed [facility] Work Phone: 1(957) 562-423108-14-2025 Discharge summary [facility] Medical Records Department [address] [place] [address] Instructions for Home/Discharge Instructions 04/30/25 1558 MR#: [id number] Acct: [id number] Name: FAISAL ALARCON Rep #:[id number] : 1945 80 From: Chilango hanley DO [...] can be placed): Home, Self Care [facility] CC: Dr. Narda Prather DO; Dr. Mathieu Virgen MD ~ Signed [facility]08-14-20[facility] History and physical note Author Narda Araiza [facility] Note Date/Time April 30, 2025 6: 45am [facility] Medical Records Department [address] [place] [address] H&P Exam - Hospitalist 04/29/25 1905 MR#: [id number] Acct: [id number] Name: FAISAL ALARCON Rep #:[id number] : 1945 80 From: Narda Musa DO PCP: Dr. Mathieu Virgen MD Status:ADM I NO Location: [place] [address] HPI - General General Date of Admission: [...] walker prn at baseline who presents to [facility] ER complaining of syncopal event. Mr. Alarcon [...] expected to be less than 2 midnights. [facility] Medical History (Updated 04/29/25 @ 20:20 [...] (Auto) 71.4 H, Lymph % (Auto) 14.5 L,Navarro % (Auto) 10.5 H, Eos % (Auto) [...] most likely reactive lymph nodes. Reading Location: [facility] Assessment & Plan Assessment/Plan (1) Syncope: QUALIFIERS: [...] 85 minutes. Charges/Coding Visit Charges OBSV E&M: 07411 Observ/hosp same date L3 04/30/25 0645 <Electronically signed by Nrada Prahter DO> Cosigner Signature (if applicable): CC: Dr. Narda Prather DO; Dr. Mathieu Virgen MD~ Signed [facility] Work Phone: 1(849) 298-554108-14-2025 History and physical note [facility] Medical Records Department [address] [facility] [place] [place] [address] H&P Exam - Hospitalist 04/29/25 1905 MR#: [id number] Acct: [id number] Name: FAISAL ALARCON Rep #:[id number] : 1945 80 From: Narda Musa DO PCP: Dr. Mathieu Virgen MD Status:ADM I NO Location: [place] [address]- 1 HPI - General General Date of [...] walker prn at baseline who presents to [facility] ER complaining of syncopal event. Mr. Alarcon [...] is expected mansi less than 2 midnights. [facility] Medical History (Updated 04/29/25 @ 20:20 [...] gram tablet 1 g PO DAILY PRN [facility] 09/03/24 Unknown History furosemide 40 mg [...] (Auto) 71.4 H, Lymph % (Auto) 14.5 L,Navarro % (Auto) 10.5 H, Eos % (Auto) [...] most likely reactive lymph nodes. Reading Location: [facility] Assessment & Plan Assessment/Plan (1) Syncope: QUALIFIERS: [...] 85 minutes. Charges/Coding Visit Charges OBSV E&M: 65630 Observ/hosp same date L3 04/30/25 0645 Cosigner Signature (if applicable): CC: Dr. Narda Prather DO; Dr. Mathieu Virgen MD~ Signed [facility]08-13-2025 Discharge summary Author Yola Canales [facility] Note Date/Time April 29, 2025 7: 15pm [facility] Medical Records Department [address] [place] [address] Emergency Department Summary 04/29/25 MR#: [id number] Acct: [id number] Name: FAISAL ALARCON Rep #:[id number] : 1945 80 From: Yola Canales MD [...] before. He did eat and drink today. [facility] Medical History Diastolic dysfunction Dyspnea Diabetes Sleep [...] 71.4 H Lymph % (Auto) 14.5 L Navarro % (Auto) 10.5 H Eos % (Auto) [...] most likely reactive lymph nodes. Reading Location: [facility] Management Discussion w/another healthcare provider: Hospitalist Discharge [...] MD [Primary Care Provider] - Print Language: French What to do if you have Problems For any increased pain, shortness of breath, bleeding, nausea or vomiting, chestpain, or any unexpected problems, contact your Primary Care Provider. Call [facility] ([phone]) or report to the closest Emergency Room. Call 911 if necessary. 04/29/251914 <Electronically signed by Yola Canales MD> Cosigner Signature (if applicable): CC: Dr. Mathieu Virgen MD ~ Signed [facility] Work Phone: 1(704) 483-418808-13-2025 Discharge summary [facility] Medical Records Department [address] [place] [address] Emergency Department Summary 04/29/25 MR#: [id number] Acct: [id number] Name: FAISAL ALARCON Rep #:[id number] : 1945 80 From: Yola Canales MD [...] before. He did eat and drink today. [facility] Medical History Diastolic dysfunction Dyspnea Diabetes Sleep [...] 71.4 H Lymph % (Auto) 14.5 L Navarro % (Auto) 10.5 H Eos % (Auto) [...] most likely reactive lymph nodes. Reading Location: [facility] Management Discussion w/another healthcare provider: Hospitalist Discharge [...] MD [Primary Care Provider] - Print Language: French What to do if you have Problems For any increased pain, shortness of breath, bleeding, nausea or vomiting, chestpain, or any unexpected problems, contact your Primary Care Provider. Call [facility] ([phone]) or report tothe closest Emergency Room. Call 911 if necessary. 04/29/251914 Cosigner Signature (if applicable): CC: Dr. Mathieu Virgen MD ~ Signed [facility]08-13-2025 Radiology Diagnostic study note [facility] Imaging Services [address] [place], [place] [address] CTA Chest W/WO Contrast MR#: [id number] Acct: [id number] Name: FAISAL ALARCON Rep #: [id number] : 1945 M 80 From: Alcira Tierney MD PCP: Dr. Mathieu Virgen MD Status: REG E R Study:CTA Chest W/WO Contrast Date of Exam: 04/29/25 Exam# [id number] Ordering Dr: Arnulfo Canales MD EXAM: CT [...] most likely reactive lymph nodes. Reading Location: [facility] CC: Dr. Yola Canales MD; Dr. Mathieu Virgen MD ~ Bi Data Architect: Signed [facility]07-18-2025 Telephone encounter Note* Telephone Encounter - Jaylene Henley LPN - 04/03/2025 11:11 AM EDT Faxed application. [facility]07-18-2025 Miscellaneous Notes* Telephone Encounter - Jaylene Henley LPN - 04/03/2025 11:11 AM EDT Faxed application. * Telephone Encounter - Mathieu Virgen MD - 04/03/2025 10:45 AM EDT done * Telephone Encounter - Janet King MA - 04/02/2025 4:14 PM EDT Type of form: Prescription Assistance Form received via walk in When form is completed, Fax form to [facility] Form has been forwarded to Physician Desk: Dr. Virgen Prescription pended to go to [facility], as listed on form. Janet King MA documented in this encounterUc Health07-18-2025 Telephone encounter Note * Telephone Encounter - Mathieu Virgen MD - 04/03/2025 10:45 AM EDT done [facility]07-17-2025 Telephone encounter Note* Telephone Encounter - Janet King MA - 04/02/2025 4:14 PM EDT Type of form: Prescription Assistance Form received via walk in When form is completed, Fax form to [facility] Form has been forwarded to Physician Desk: Dr. Virgen Prescription pended to go to [facility], as listed on form. Janet King MA [facility]07-16-2025 Radiology Diagnostic study note [facility] Imaging Services [address] [place] [address] [id number] Chest without Contrast MR#: [id number] Acct: [id number] Name: FAISAL ALARCON Rep #: [id number] : 1945 M 79 From: Ernst Ngo DO PCP: Dr. Mathieu Virgen MD Status: REG C CLEM Study:Chest without Contrast Date of Exam: 04/01/25 Exam# [id number] Ordering Dr: Megan Macario ALIGNER TYPEWRITER-C PROCEDURE: CHEST WITHOUT CONTRAST 04/01/2025 REASON FOR [...] Mathieu Virgen MD; Megan Macario NP ~ Bi Data Architect: Signed [facility]07-11-2025 Telephone encounter Note* Telephone Encounter - Christian Bob LPN - 03/27/2025 4:01 PM EDT Rx(s) need sent to [facility] d/t [facility] is closing. Christian Bob LPN [facility]07-11-2025 Miscellaneous Notes* Telephone Encounter - Christian Bob LPN - 03/27/2025 4:01 PM EDT Rx(s) need sent to [facility] d/t [facility] is closing. Christian Bob LPN * Telephone Encounter - Nisha Wilson - 03/27/2025 3:38 PM EDT Patient's daughterFarida calling today asking if the medication refill can be completed before theend of the day. Patient is out of the medication. documented in this encounterUc Health07-11-2025 Telephone encounter Note * Telephone Encounter - Nisha Wilson - 03/27/2025 3:38 PM EDT Patient's daughterFarida calling today asking if the medication refill can be completed before theend of the day. Patient is out of the medication. [facility]06-16-2025 Procedure notey [facility] Pulmonary Services/Neurology [address] [place] [address] MR#: [id number] Acct: [id number] Name: FAISAL ALARCON Rep #:[id number] : 1945 79 From: Marvin Reeves DO Referring Dr: Megan Macario ALIGNER TYPEWRITER-C Status: REG CLI Location: PSN Date: Sex: M C PSN 6 Minute Walk Test 6 Minute Walk Test 6 Minute Walk Test: 6 Minute Walk Test PSN:6-Minute Walk Test Start: 02/26/25 14:00 Freq: Status: Active Protocol: RESP.6MINW Document 02/26/25 14:00 [facility] (Rec: 02/26/25 14:37 [facility] [id number]) 6 Minute Walk Test Date Performed 02/26/25 [...] Dictated: 03/02/25 1015 Date Transcribed: 03/02/25 1015 Bi Data Architect: Dr. Marvin Reeves DO Signed [facility]05-28-2025 Miscellaneous Notes* Telephone Encounter - Jaylene Henley LPN - 02/11/2025 9:09 AM EDT [facility] requesting DM note faxed to them documenting diabetes visit. Sent as requested. documented in this encounterUc Health05-28-2025 Telephone encounter Note * Telephone Encounter - Jaylene Henley LPN - 02/11/2025 9:09 AM EDT [facility] requesting DM note faxed to them documenting diabetes visit. Sent as requested. [facility]05-23-2025 Telephone encounter Note* Telephone Encounter - Jaylene Henley LPN - 02/06/2025 1:16 PM EDT Scan on 02/05/2025 4:36 PM by ProviderJulian PAOlgaC: Hematology [facility]05-23-2025 Miscellaneous Notes* Telephone Encounter - Jaylene Henley LPN - 02/06/2025 1:16 PM EDT Scan on 02/05/2025 4:36 PM by ProviderJulian PA-C: Hematology documented in this encounterUc Health05-12-2025 NoteHNO ID: [id number] Author: MATHIEU VIRGEN MD Service: ? Author [...] Quit date: 09/17/1980 Year (more content not included)...[facility]05-12-2025 History of Present illness Narrative* Mathieu Virgen [...] well. Mathieu Virgen MD documented in this encounterUc Health05-10-2025 NoteHNO ID: [id number] Author: JAMAL MACE, ? Service: ? Author [...] Sister Cancer Sister Co (more content not included)...[facility]05-10-2025 History of Present illness Narrative* Jamal Mace [...] every afternoon. Ordered by cardiology Blood-Glucose Sensor ([email or web address] G7 SENSOR) sayra Apply new sensor every [...] fracture of foot, unspecified laterality, initial encounter (S92.126H) - X-rays from January 12, 2025, show [...] prevent further displacement. Attestation Recording using ambient Roovyn software for draft documentation of the visit was discussed with the patient/authorized charter representative; all questions welcomed and answered. Patient/authorized charter representative agreed to proceed Jamal Mace DPM * Pricilla Kuhn LPN - 01/22/2025 3:23 PM EDT AMB ROOMING INTAKE FLOWSHEET DATA Pain Pain Level: 2 Pain Location: Foot-Left Description: Tenderness Duration Amount of Time: 2 Duration Units: Weeks Frequency: Intermittent Intervention/Comfort measure: Relaxation, Reposition Patient presents with: Left Foot - New, Pain, Swelling, Fracture Pricilla Kuhn LPN documented in this encounterUc Health05-08-2025 History of Present illness Narrative* Malik [...] PATIENT PRESENTS WITH AN IMPLANTABLE OR ATTACHED PIG MACHINE CRANE OPERATOR: No RADIOLOGY DEPARTMENT: General X-ray: Exam(s) Completed: Lower Extremity X- Ray(s): Foot, Left PERIPHERAL IV DATA: Not applicable SIGNED BY: RT Natalie(R) January 22, 2025 4:02 PM documented in this encounterUc Health05-08-2025 NoteHNO ID: [id number] Author: MALIK LUNA RT(R) Service: Radiology Author [...] PATIENT PRESENTS WITH AN IMPLANTABLE OR ATTACHED PIG MACHINE CRANE OPERATOR: No RADIOLOGY DEPARTMENT: General X-ray: Exam(s) Completed: Lower Extremity X-Ray(s): Foot, Left PERIPHERAL IV DATA: Not applicable SIGNED BY: RT Natalie(R) January 22, 2025 4:02 [facility]05-08-2025 Instructions* Patient Instructions* Jamal Mace - 01/22/2025 [...] decreased vibratory sensation noted. documented in this encounterUc Health05-08-2025 NoteHNO ID: [id number] Author: PRICILLA KUHN LPN Service: ? Author Type: LICENSED NURSE Type: Progress Notes Filed: 01/24/2025 07:08 Note Text: AMB ROOMING INTAKE FLOWSHEET DATA Pain Pain Level: 2 Pain Location: Foot-Left Description: Tenderness Duration Amount of Time: 2 Duration Units: Weeks Frequency: Intermittent Intervention/Comfort measure: Relaxation, Reposition Patient presents with: Left Foot - New, Pain, Swelling, Fracture [facility] Telephone encounter Note* Telephone Encounter - Liyah Monroy RN - 01/22/2025 8:17 AM EDT Jacki with [facility] called in and need the diagnosis the provider put on the CBC for the pathologistinterpretation. I let her know it was : Leukocytosis, unspecified type [D72.829] Liyah Monroy RN [facility]05-08-2025 Miscellaneous Notes* Telephone Encounter - Liyah Monroy RN - 01/22/2025 8:17 AM EDT Jacki with [facility] called in and need the diagnosis the provider put on the CBC for the pathologistinterpretation. I let her know it was : Leukocytosis, unspecified type [D72.829] Liyah Monroy RN documented in this encounterUc Health05-07-2025 Evaluation note* Diagnosis Onset Date Resolution [...] exertion acut e April 08, 2025 9:06am [facility] Work Phone: 1(408) 128-467205-07-2025 Evaluation note* Diagnosis Onset Date Resolution Status [...] fibrillation chron ic April 29, 2025 7:37pm [facility] Work Phone: 1(220) 236-244405-02-2025 Telephone encounter Note* Telephone Encounter - Lulu Walls MA - 01/16/2025 3:35 PM EDT Patients daughter came into office and picked up hard Rx for post op shoe. Lulu Walls MA [facility]05-02-2025 Miscellaneous Notes* Telephone Encounter - Lulu [...] re: what the podiatristwould do. Transferred to [facility] for assistance. * Telephone Encounter - Reanna [...] a post op shoe. documented in this encounterUc Health05-01-2025 Telephone encounter Note * Telephone Encounter - Mathieu Virgen MD - 01/15/2025 2:13 PM EDT See below. Already wrote for post op shoe that can be obtained here or elsewhere. Script is on thisnote. In addition, she said earlier she had a boot at home. ??? [facility]05-01-2025 Telephone encounter Note* Telephone Encounter - [...] Please call and advise. Liyah Monroy, NILDA [facility]05-01-2025 Telephone encounter Note* Telephone Encounter - Mathieu Virgen MD - 01/15/2025 12:04 PM EDT Let her know fractures of this type need followed by a specialist to ensure they heal correctly. [facility]05-01-2025 Telephone encounter Note* Telephone Encounter - Reanna Cloud - 01/15/2025 8:42 AM EDT Spoke with daughter to schedule podiatry appointments but she has questions re: what the podiatristwould do. Transferred to clinical for assistance. [facility]04-29-2025 Telephone encounter Note* Telephone Encounter - Reanna Cloud - 01/13/2025 8:28 AM EDT Attempted to contact daughter, Farida, but no answer and voicemail full. Should she call back, please schedule podiatry consult. [facility]04-29-2025 Telephone encounter Note* Telephone Encounter - Lulu Walls MA - 01/13/2025 8:06 AM EDT Spoke with both patient and his daughter Farida. Informed of result. Farida states patient already has a boot at home he can wear. Sending to schedulers for Podiatry consult. Lulu Walls MA [facility]04-29-2025 Miscellaneous Notes* Telephone Encounter - Julianna [...] 13, 2025 7:03 AM documented in this encounterUc Health04-29-2025 Telephone encounter Note * Telephone Encounter [...] Lynn LPN January 13, 2025 7:03 AM [facility]04-28-2025 Telephone encounter Note* Telephone Encounter - Mathieu Virgen MD - 01/12/2025 7:30 PM EDT Shows a fracture in his foot. See if can get into podiatry. See if we can get him in a post op shoe. [facility]04-28-2025 History of Present illness Narrative* Malik [...] PATIENT PRESENTS WITH AN IMPLANTABLE OR ATTACHED PIG MACHINE CRANE OPERATOR: No RADIOLOGY DEPARTMENT: General X-ray: Exam(s) Completed: Lower Extremity X- Ray(s): Foot, Left PERIPHERAL IV DATA: Not applicable SIGNED BY: RT Natalie(Leslee) January 12, 2025 5:23 PM documented in this encounterUc Health04-28-2025 NoteHNO ID: [id number] Author: MALIK LUNA RT(R) Service: Radiology Author [...] PATIENT PRESENTS WITH AN IMPLANTABLE OR ATTACHED PIG MACHINE CRANE OPERATOR: No RADIOLOGY DEPARTMENT: General X-ray: Exam(s) Completed: Lower Extremity X-Ray(s): Foot, Left PERIPHERAL IV DATA: Not applicable SIGNED BY: RT Natalie(R) January 12, 2025 5:23 [facility]04-28-2025 NoteHNO ID: [id number] Author: MATHIEU VIRGEN MD Service: ? Author [...] every afternoon. Ordered by cardiology Blood-Glucose Sensor ([email or web address] G7 SENSOR) sayra Apply new sensor every [...] Reviewed current medications, allergie (more content not included)...[facility]04-28-2025 History of Present illness Narrative* Mathieu Viregn MD - 01/12/2025 5:06 PM EDT Patient [...] Mathieu Virgen MD documented in this encounterCleveland [id number] Evaluation note* Diagnosis Onset Date Resolution Status [...] fibrillation chron ic January 26, 2025 9:38am [facility] Work Phone: 1(946) 136-211003-27-2025 Evaluation note* Diagnosis Onset Date Resolution Status [...] exertion acut e April 08, 2025 9:06am [facility] Work Phone: [phone]) [phone] Telephone encounter Note* Telephone Encounter - Tonia Ellis LPN - 12/04/2024 4:20 PM EDT Pt and caregiver notified via [employer]. [facility]03-20-2025 Miscellaneous Notes* Telephone Encounter - Tonia Ellis LPN - 12/04/2024 4:20 PM EDT Pt and caregiver notified via [employer]. * Telephone Encounter - Tonia Ellis LPN - 12/04/2024 11:51 AM EDT Rec'd and in scanned documents. Pharmacy notified. * Telephone Encounter - Reanna Brannon RN - 12/04/2024 11:17 AM EDT Medardo from [employer] calls and reports that patient's medication is approved until 09/06/2025. CaseNumber: [id number] Medardo is faxing over approval letter. Reanna Brannon RN * Telephone Encounter - Aly Mandel MA - 12/03/2024 5:55 PM EDT Received PA from pharmacy for Fiasp Flextouch. Tried to complete through covermymeds but was instructed to call [employer] at . Spoke to [facility] who will submit info to pharmacy for PA. Aly Mandel MA documented in this encounterUc Health03-20-2025 Telephone encounter Note * Telephone Encounter - Tonia Ellis LPN - 12/04/2024 11:51 AM EDT Rec'd and in scanned documents. Pharmacy notified. [facility]03-20-2025 Telephone encounter Note* Telephone Encounter - Reanna Brannon RN - 12/04/2024 11:17 AM EDT Medardo from [employer] calls and reports that patient's medication is approved until 09/06/2025. CaseNumber: [id number] Medardo is faxing over approval letter. Reanna Brannon RN [facility]03-19-2025 Telephone encounter Note* Telephone Encounter - Aly Mandel MA - 12/03/2024 5:55 PM EDT Received PA from pharmacy for Fiasp Flextouch. Tried to complete through covermymeds but was instructed to call [employer] at . Spoke to [facility] who will submit info to pharmacy for PA. Aly Mandel MA [facility]03-18-2025 NoteHNO ID: [id number] Author: MATHIEU VIRGEN MD Service: ? Author [...] up at 12. Has been following with [facility]. Seeing pulmonary. Uro: follows with [...] a day before meals. Getting through [facility] insulin glargine (BASAGLAR KWIKPEN U-100 INSULIN) 100 [...] mouth every 12 hours. Prescribed by outside supplier engineer No current facility-administered medications for this visit. [...] and laser of bladder (more content not included)...[facility]03-18-2025 History of Present illness Narrative* Mathieu Virgen [...] times a day before meals. Getting through [facility] insulin glargine (BASAGLAR KWIKPEN [...] mouth every 12 hours. Prescribed by outside supplier engineer No current facility-administered medications for this visit. [...] or prn Mathieu Virgen documented in [place] encounterAndrew Ville [address]-15-2025 Telephone encounter Note * Telephone Encounter - Mathieu Virgen MD - 11/29/2024 9:18 AM EDT Reviewed. Coming on . Await appt [facility]03-15-2025 Miscellaneous Notes* Telephone Encounter - Mathieu Virgen MD - 11/29/2024 9:18 AM EDT Reviewed. Coming on . Await appt * Telephone Encounter - Miley Pemberton MA - 11/28/2024 4:55 PM EDT Pt had blood work done. View External Labs - Chemistry [ID [id number]] View External Labs - Miscellaneous Lab [ID [id number]] View External Labs - Chemistry [ID [id number]] Miley Pemberton MA documented in this encounterUc Health03-14-2025 Telephone encounter Note * Telephone Encounter - Miley Pemberton MA - 11/28/2024 4:55 PM EDT Pt had blood work done. View External Labs - Chemistry [ID [id number]] View External Labs - Miscellaneous Lab [ID [id number]] View External Labs - Chemistry [ID [id number]] Miley Pemberton MA [facility]03-13-2025 Telephone encounter Note* Telephone Encounter - Jaylene Henley LPN - 11/27/2024 11:40 AM EDT Left message for Farida that lab orders have been placed. [place] [address]-13-2025 Miscellaneous Notes* Telephone Encounter - Jaylene Henley [...] Please assist. Reanna Cloud documented in this encounterUc Health03-13-2025 Telephone encounter Note * Telephone Encounter - Mathieu Virgen MD - 11/27/2024 11:37 AM EDT ordered [facility]03-13-2025 Telephone encounter Note* Telephone Encounter - Jaylene Henley LPN - 11/27/2024 11:30 AM EDT Labs pending to review and file. [facility]03-13-2025 Telephone encounter Note* Telephone Encounter - Reanna Cloud - 11/27/2024 9:52 AM EDT Patient and daughter are here for labs and MyChart is stating that the patinet is due for an Urine Albumin:Creatinine Ration, A1C and LDL Cholesterol but those orders are not in the patient's chart. Patient/daughter want them done today while they are here. Please assist. Reanna Cloud [facility]03-12-2025 Telephone encounter Note* Telephone Encounter - Jaylene Henley LPN - 11/26/2024 5:17 PM EDT Left detailed message on personalized voicemail. [facility]03-12-2025 Miscellaneous Notes* Telephone Encounter - Jaylene [...] needs called with information documented in this encounterUc Health03-12-2025 Telephone encounter Note * Telephone Encounter - Mathieu Virgen MD - 11/26/2024 5:07 PM EDT I am assuming he is taking it once a day. Rx sent [facility]03-12-2025 Telephone encounter Note* Telephone Encounter - Tierra Crawford RN - 11/26/2024 3:58 PM EDT patient daughter is calling in stating that Dr Daley left the office today without filling patients finasteride. daughter is requesting that pcp fill the medication for patient. please review and advise. if ok rx needs [facility] daughter needs called with information [facility]03-10-2025 Telephone encounter Note* Telephone Encounter - Janet King MA - 11/24/2024 10:44 AM EDT Scheduled 12/02/24 [facility]03-10-2025 Miscellaneous Notes* Telephone Encounter - Janet [...] of this. Please advise documented in this encounterUc Health03-10-2025 Telephone encounter Note * Telephone Encounter - Janet King MA - 11/24/2024 10:16 AM EDT Next visit 12/02/24 [facility]03-10-2025 Miscellaneous Notes* Telephone Encounter - Janet King MA - 11/24/2024 10:16 AM EDT Next visit 12/02/24 * Telephone Encounter - Nisha Wilson - 11/24/2024 9:33 AM EDT Patient's daughter calling asking for an medication: dilTIAZem CD (CARDIZEM CD, CARTIA XT) 120 mg 24 hr capsule () Patient last seen 10/31/23 Future visit scheduled: yes PHARMACY: Yanira Fernandez. documented in this encounterUc Health03-10-2025 Telephone encounter Note * Telephone Encounter - Nisha Wilson - 11/24/2024 9:33 AM EDT Patient's daughter calling asking for an medication: dilTIAZem CD (CARDIZEM CD, CARTIA XT) 120 mg 24 hr capsule () Patient last seen 10/31/23 Future visit scheduled: yes PHARMACY: Yanira Esparza/Lisa. [facility]02-27-2025 Telephone encounter Note* Telephone Encounter - Lulu Walls MA - 11/13/2024 2:46 PM EST Message left for daughter Farida to call back to schedule sooner appointment. Lulu Walls MA [address]27-2025 Telephone encounter Note* Telephone Encounter - Marilin Setin MA - 11/13/2024 12:27 PM EST Please see message from pt's Daughter and advise if willing to order labs. Marilin Stein MA [facility]02-27-2025 Miscellaneous Notes* Telephone Encounter - Marilin Stein MA - 11/13/2024 12:27 PM EST Please see message from pt's Daughter and advise if willing to order labs. Marilin Stein MA documented in this encounterUc Health02-26-2025 Telephone encounter Note * Telephone Encounter - Mathieu Virgen MD - 11/12/2024 4:52 PM EST See if we can get him in sooner. [address]26-2025 Telephone encounter Note* Telephone Encounter - Lulu Walls MA - 11/12/2024 4:50 PM EST Has an appointment 12/19/24. Is that out too far? [facility]02-26-2025 Telephone encounter Note* Telephone Encounter - [...] into see me in a few weeks [facility]02-26-2025 Telephone encounter Note* Telephone Encounter - [...] says with all of this. Please advise [facility]02-14-2025 NoteHNO ID: [id number] Author: SUKH HALL APRN.CBX OPERATOR Service: ? Author Type: Nurse Practitioner Type: [...] day. Blood-Glucose Meter,Continuous (FREESTYLE MARIELLE 3 READER) [facility] Use to check blood sugar at least [...] mouth every 12 hours. Prescribed by outside supplier engineer No current facility-admin (more content not included)...[facility]02-14-2025 History of Present illness Narrative* Sukh Hall, PAIGE.CBX OPERATOR - 10/31/2024 2:44 PM EST Chief Complaint [...] day. Blood-Glucose Meter,Continuous (FREESTYLE MARIELLE 3 READER) [facility] Use to check blood sugar at least [...] mouth every 12 hours. Prescribed by outside supplier engineer No current facility-administered medications on file prior [...] per day, discussed with Sergey Carreon at [facility]. Has follow up with Dr. Bailey aguilar. 4. Systolic congestive heart failure, unspecified HF chronicity (HCC) - ICD9: 428.20, 428.0, ICD10:I50.20 - Continue current medications - Encouraged sodium restriction - Encouraged daily weights Patient instructed if he develops swelling, weight gain or SOB to follow up with [facility] for guidance. Sukh Hall APRN.CAESAR documented in this encounterUc Health02-14-2025 Telephone encounter Note * Telephone Encounter [...] waiting for a new C-pap machine from [facility]. (Nisha is calling them to ask about the machine as she is aware that we are not able to do anything about that). Patient wants to discuss the fluid restriction. Nisha aware that if he is dehydrated and needs fluids he should go to the ER but she said he is not to that point. Appointment remains. Jackelin Tinajero RN [facility]02-14-2025 Miscellaneous Notes* Telephone Encounter - Jackelin [...] waiting for a new C-pap machine from [facility]. (Nisha is calling them to ask [...] remains. Jackelin Tinajero RN documented in this encounterUc Health01-30-2025 Telephone encounter Note * Telephone Encounter - Lulu Walls MA - 10/16/2024 11:52 AM EST We do not have samples. Spoke with daughter Farida and informed her of this. She is requesting a Rx for the Dexcom sensors (G7) to the [facility] in [place] while waiting for the company to ship more. Patient has finger stick meter at home but daughter states this is not super convenient for them to check this way. Lulu Walls MA [facility]01-30-2025 Miscellaneous Notes* Telephone Encounter - Lulu Walls MA - 10/16/2024 11:52 AM EST We do not have samples. Spoke with daughter Farida and informed her of this. She is requesting a Rx for the Dexcom sensors (G7) to the [facility] in [place] while waiting for the company to ship [...] get one. Please phone Farida with reply: [phone] documented in this encounterUc Health01-30-2025 Telephone encounter Note * Telephone Encounter - Mathieu Virgen MD - 10/16/2024 10:34 AM EST Do we have anything like that available? Might need to buy one if not [facility]01-30-2025 Telephone encounter Note* Telephone Encounter - Vikas Regalado RN - 10/16/2024 10:31 AM EST Daughter Farida reports patient had 3 Dexcom G 7 sensors that malfunctioned. They notified the company, but it takes 5-7 days to receive new one. Asking if pcp has samples of these sensors or knows how they can get one. Please phone Farida with reply: [phone] [facility]01-23-2025 Telephone encounter Note* Telephone Encounter - Julianna Hood APRN.CNP - 10/09/2024 8:43 AM EST The following approved medication requests have been transmitted electronically. Requested Prescriptions Pending Prescriptions Disp Refills metFORMIN ER (GLUCOPHAGE XR) 500 mg 24 hr tablet 360 tablet 3 Sig: Take 2 tablets by mouth two times a day before meals. Julianna Hood APRN.CNP [facility]01-23-2025 Miscellaneous Notes* Telephone Encounter - Julianna [...] 09, 2024 7:52 AM documented in this encounterUc Health01-23-2025 Telephone encounter Note * Telephone Encounter [...] Frey LPN October 09, 2024 7:52 AM [facility]01-07-2025 NoteHNO ID: [id number] Author: DENISHA SHEPARD APRN.CBX OPERATOR Service: ? Author Type: Nurse Practitioner Type: Progress Notes Filed: 09/23/2024 18:18 Note Text: This is a 79 year old male who presents today with: Patient presents with: ER F/U: [facility] ER 09/20/24 dx:CP HISTORY OF PRESENT ILLNESS: Faisal Alarcon is a 79 year old male. Patient presents with: ER F/U: [facility] ER 09/20/24 dx:CP Patient presents today for emergency room follow-up. He went to the emergency room on 09/20/2024 with complaints of chest discomfort. He had been given nitroglycerin by EMS that did improve his pain. He had negative cardiac enzymes and stable lab work. There was no STEMI. The emergency room did consult patient's supplier engineer, and it was recommended to start patient [...] day. Blood-Glucose Meter,Continuous (FREESTYLE MARIELLE 3 READER) [facility] Use to check blood sugar at least [...] mouth every 12 hours. Prescribed by outside supplier engineer insulin glargine (BASAGLAR KWIKPEN U-100 INSULIN) 100 [...] daily. Dx: 250.00. Insul (more content not included)...[facility] 09-23-2024 History of Present illness Narrative* Denisha Shepard APRN.CBX OPERATOR - 09/23/2024 6:10 PM EST This is a 79 year old male who presents today with: Patient presents with: ER F/U: [facility] ER 09/20/24 dx:CP HISTORY OF PRESENT ILLNESS: Faisal Alarcon is a 79 year old male. Patient presents with: ER F/U: [facility] ER 09/20/24 dx:CP Patient presents today for emergency room follow-up. He went to the emergency room on 09/20/2024 with complaints of chest discomfort. He had been given nitroglycerin by EMS that did improve his pain. He had negative cardiac enzymes and stable lab work. There was no STEMI. The emergency room did consult patient's supplier engineer, and it was recommended to start patient [...] day. Blood-Glucose Meter,Continuous (FREESTYLE MARIELLE 3 READER) [facility] Use to check blood sugar at least [...] mouth every 12 hours. Prescribed by outside supplier engineer insulin glargine (BASAGLAR KWIKPEN U-100 INSULIN) 100 [...] improvement. Denisha Shepard APRN.CNP documented in this encounterUc Health01-07-2025 Telephone encounter Note * Telephone Encounter - Denisha Shepard APRN.CNP - 09/23/2024 5:14 PM EST See office notes. Has appt w/ cardiology today. Denisha Shepard APRN.CNP [facility]01-07-2025 Miscellaneous Notes* Telephone Encounter - Denisha Shepard APRN.CNP - 09/23/2024 5:14 PM EST See office notes. Has appt w/ cardiology today. Denisha Shepard APRN.CNP * Telephone Encounter - Liyah Monroy RN - 09/22/2024 12:49 PM EST Pts daughter called in and reports her father was in [facility] ER 09/20/24. She reports Pt was having chestpain and that is why he went to the ER. Pts daughter states they didn't find anything wrong with him, everything was the same as before. Pt scheduled with Denisha Shepard ALIGNER TYPEWRITER 09/23/24 at 240 pm. She reports he father has been feeling lightheaded and dizzy, and she thinks it's because on 09/13/[address] Operator Dr Ponce double his dose of Lasix. [...] few weeks from now. documented in this encounterUc Health01-06-2025 Telephone encounter Note * Telephone Encounter - Liyah Monroy RN - 09/22/2024 12:49 PM EST Pts daughter called in and reports her father was in [facility] ER 09/20/24. She reports Pt was having chestpain and that is why he went to the ER. Pts daughter states they didn't find anything wrong with him, everything was the same as before. Pt scheduled with Denisha Shepard ALIGNER TYPEWRITER 09/23/24 at 240 pm. She reports he father has been feeling lightheaded and dizzy, and she thinks it's because on 09/13/[address] Ponce double his dose of Lasix. [...] is out a few weeks from now. [facility]12-17-2024 Telephone encounter Note* Telephone Encounter - Angelina Bliss RN - 09/02/2024 3:51 PM EST Patient's daughter Farida, returned call and given provider's message below. Angelina Bliss RN [facility]12-17-2024 Miscellaneous Notes* Telephone Encounter - Angelina [...] symptoms that daughter knows of. Protocols used: [id number] documented in this encounterUc Health12-17-2024 Telephone encounter Note * Telephone Encounter - Janet King MA - 09/02/2024 3:18 PM EST Left message for patient to return call and speak to triage nurse Janet King Ma [facility]12-17-2024 Telephone encounter Note* Telephone Encounter - Mathieu Virgen MD - 09/02/2024 1:07 PM EST If any pain, nausea or vomiting or distention to er for disimpaction if it is the rectum and can't use a suppository or enema. [facility]12-17-2024 Telephone encounter Note* Telephone Encounter - [...] symptoms that daughter knows of. Protocols used: [id number] [facility]12-09-2024 Telephone encounter Note* Telephone Encounter - Kennedi Frey LPN - 08/25/2024 8:12 AM EST Spoke with Farida, daughter of pt and message below given. Farida verbalizes understanding. Kennedi Frey LPN [facility]12-09-2024 Miscellaneous Notes* Telephone Encounter - Kennedi [...] 22, 2024 11:53 AM documented in this encounterUc Health12-06-2024 Telephone encounter Note * Telephone Encounter - Janet King MA - 08/22/2024 1:35 PM EST Left message for patient to return call. Janet King Ma [facility]12-06-2024 Telephone encounter Note* Telephone Encounter - Julianna Hood APRN.CNP - 08/22/2024 12:56 PM EST The following approved medication requests have been transmitted electronically. Requested Prescriptions Pending Prescriptions Disp Refills furosemide (LASIX) 40 mg tablet 90 tablet 1 Sig: Take 1 tablet by mouth once daily. Julianna Hood APRN.CNP [facility]12-06-2024 Miscellaneous Notes* Telephone Encounter - Julianna [...] 22, 2024 11:52 AM documented in this encounterUc Health12-06-2024 Telephone encounter Note * Telephone Encounter - Julianna Hood APRN.CNP - 08/22/2024 12:55 PM EST Since patient has slightly weakened kidneys, I will replace simvastatin with a atorvastatin 20 mg daily. It is a little safer on the kidneys. [facility]12-06-2024 Telephone encounter Note* Telephone Encounter - [...] Bob LPN August 22, 2024 11:53 AM [place] [address]-06-2024 Telephone encounter Note* Telephone Encounter - Christian [...] Bob LPN August 22, 2024 11:52 AM [facility]12-02-2024 Telephone encounter Note* Telephone Encounter - Jaylene Henley LPN - 08/18/2024 1:14 PM EST We did and faxed it back. Will fax again today. [facility]12-02-2024 Miscellaneous Notes* Telephone Encounter - Jaylene Henley LPN - 08/18/2024 1:14 PM EST We did and faxed it back. Will fax again today. * Telephone Encounter - Kristina Higuera LPN - 08/18/2024 12:55 PM EST Kate with [facility] calls to check on status of order form that was faxed last week for Dexcom G7. Kate is asking if office did not receive order form if office would call back and let them know. Kristina Higuera LPN documented in this encounterUc Health12-02-2024 Telephone encounter Note * Telephone Encounter - Kristina Higuera LPN - 08/18/2024 12:55 PM EST Kate with [employer] calls to check on status of order form that was faxed last week for Dexcom G7. Kate is asking if office did not receive order form if office would call back and let them know. Kristina Higuera LPN [facility]11-29-2024 Telephone encounter Note* Telephone Encounter - Angelina Bliss RN - 08/15/2024 8:59 AM EST Summer calling with [employer], the [employer] assisting patient with Dexcom G7 CGM. Requesting recent OV note to further proceed with pt's CGM order. Faxed as requested to [phone]. Angelina Bliss RN [facility]11-29-2024 Miscellaneous Notes* Telephone Encounter - Angelina Bliss RN - 08/15/2024 8:59 AM EST Summer calling with [employer], the company assisting patient with Dexcom G7 CGM. Requesting recent OV note to further proceed with pt's CGM order. Faxed as requested to [phone]. Angelina Bliss RN documented in this encounterUc Health11-27-2024 Evaluation note* Diagnosis Onset Date Resolution [...] fibrillation chron ic September 23, 2024 3:25pm [facility] Work Phone: 1(227) 798-458011-25-2024 Telephone encounter Note* Telephone Encounter - Mathieu Virgen MD - 08/11/2024 1:42 PM EST agree [facility]11-25-2024 Miscellaneous Notes* Telephone Encounter - Mathieu [...] sent to his PCP. documented in this encounterUc Health11-25-2024 Telephone encounter Note * Telephone Encounter [...] note is being sent to his PCP. [facility]11-19-2024 Telephone encounter Note* Telephone Encounter - Lulu Walls MA - 08/05/2024 5:00 PM EST Order faxed to Gilberto and caesar Farida informed. Lulu Walls MA [facility]11-19-2024 Miscellaneous Notes* Telephone Encounter - Lulu Walls MA - 08/05/2024 5:00 PM EST Order faxed to Gilberto and Farida maynard informed. Lulu Walls MA * Telephone Encounter - Mathieu Virgen MD - 08/05/2024 3:52 PM EST printed * Telephone Encounter - Angelina Bliss RN - 08/05/2024 3:12 PM EST This triage nurse spoke with patient's daughter [facility] is for 2 liters of O2 PRN exertion. Daughter asking if Dr. Virgen can send new order to [facility] for 2 liters Oxygen continuous? Daughter states pt prefers to continue to use the tanks and does not want an electric concentrator, if possible. Daughter states patient does not have any worsening symptoms since recent OV on 07/29/24 and she will update PCP if pt does. Please call daughter Farida when order has been sent to [facility]. Thank you. documented in this encounterUc Health11-19-2024 Telephone encounter Note * Telephone Encounter - Mathieu Virgen MD - 08/05/2024 3:52 PM EST printed [facility]11-19-2024 Telephone encounter Note* Telephone Encounter - Angelina Bliss RN - 08/05/2024 3:12 PM EST This triage nurse spoke with patient's daughter [employer] is for 2 liters of O2 PRN exertion. Daughter asking if Dr. Virgen can send new order to [facility] for 2 liters Oxygen continuous? Daughter states pt prefers to continue to use the tanks and does not want an electric concentrator, if possible. Daughter states patient does not have any worsening symptoms since recent OV on 07/29/24 and she will update PCP if pt does. Please call daughter Farida when order has been sent to [facility]. Thank you. [facility]11-19-2024 Telephone encounter Note* Telephone Encounter - Marilin Stein MA - 08/05/2024 2:53 PM EST Watch for Scooter paperwork for pt from [employer]. Marilin Stein MA [facility]11-19-2024 Miscellaneous Notes* Telephone Encounter - Marilin Stein MA - 08/05/2024 2:53 PM EST Watch for Scooter paperwork for pt from [employer]. Marilin Stein MA documented in this encounterUc Health11-15-2024 Telephone encounter Note * Telephone Encounter [...] Abdi LPN August 01, 2024 12:54 PM [facility]11-15-2024 Miscellaneous Notes* Telephone Encounter - Cristina [...] 01, 2024 12:54 PM documented in this encounterUc Health11-15-2024 Telephone encounter Note * Telephone Encounter - Janet King MA - 08/01/2024 11:19 AM EST Daughter, Farida, notified of results. Advised her of provider message to keep eye out for tarry, black stools or bright, red blood. She is agreeable with plan. Patient has follow up scheduled in October. Janet King MA August 01, 2024 11:26 AM [facility]11-15-2024 Miscellaneous Notes* Telephone Encounter - Janet [...] Stop any magnesium supplements. documented in this encounterUc Health11-14-2024 Telephone encounter Note * Telephone Encounter [...] magnesium is high. Stop any magnesium supplements. [facility]11-12-2024 Instructions* Patient Instructions* Julianna Hood APRN.CNP - 07/29/2024 12:10 PM EST 1) Check labs 2) Start OTC B12 1,000 mcg daily 3) Follow up in 3 months documented in this encounterUc Health11-12-2024 NoteHNO ID: [id number] Author: JULIANNA HOOD APRN.CNP Service: ? Author [...] pressure. No nausea. No constipation. Admitted to [facility] w/ pulmonary edeam, hypoxia Echo showed EF [...] mouth two times a day. Blood-Glucose Meter,Continuous (locrSTYLE MARIELLE 3 READER) [facility] Use to check blood sugar at least [...] daily at bedtime. flecaini (more content not included)...[facility]11-12-2024 History of Present illness Narrative* Julianna Hood APRN.CBX OPERATOR - 07/29/2024 11:36 AM EST This is [...] pressure. No nausea. No constipation. Admitted to [facility] w/ pulmonary edeam, hypoxia Echo showed EF [...] day. Blood-Glucose Meter,Continuous (FREESTYLE MARIELLE 3 READER) [facility] Use to check blood sugar at least [...] mouth every 12 hours. Prescribed by outside supplier engineer insulin glargine (BASAGLAR KWIKPEN U-100 INSULIN) 100 [...] as needed for worsening/no improvement. Julianna Hood APRN.CBX OPERATOR documented in this encounterUc Health11-08-2024 [facility]11-08-20[facility]10-25-20[facility]10-23-2024 Telephone encounter Note* Telephone Encounter - Jaylene [...] Henley LPN July 09, 2024 10:38 AM [facility]10-23-2024 Miscellaneous Notes* Telephone Encounter - Jayleen Henley LPN - 07/09/2024 10:37 AM EDT [...] 09, 2024 10:38 AM documented in this encounterUc Health10-08-2024 Telephone encounter Note * Telephone Encounter - Vikas Regalado RN - 06/24/2024 4:23 PM EDT Daughter returned call and given provider's message below with verbalized understanding. Daughter agreeable. Scheduled lab appt in 1 mth. [facility]10-08-2024 Miscellaneous Notes* Telephone Encounter - Vikas Regalado RN - 06/24/2024 4:23 PM EDT Daughter returned call and given provider's message below with verbalized understanding. Daughter agreeable. Scheduled lab appt in 1 mth. * Telephone Encounter - Miley Pemberton MA - 06/24/2024 9:50 AM EDT Tried to reach pt, VM full, unable to leave message or call back number. [employer] message sent to pt, asking them to [...] D level is very low. Please consider krkd-lhn-ygssh vitamin D3-2000 units daily. Your white blood count is improving but now developing some mild anemia. Please recheck CBC in a month again. documented in this encounterUc Health10-08-2024 Telephone encounter Note * Telephone Encounter - Miley Pemberton MA - 06/24/2024 9:50 AM EDT Tried to reach pt, VM full, unable to leave message or call back number. [employer] message sent to pt, asking them to call back for results. Miley Pemberton MA [facility]10-07-2024 Instructions* Patient Instructions* Abril Duval APRN.CAESAR - 06/23/2024 3:20 PM EDT Let me know if you would like to schedule a sleep study. We can have it done at [place] or [place]. documented in this encounterUc Health10-07-2024 History of Present illness Narrative* Abril Duval APRN.CAESAR - 06/23/2024 2:30 PM EDT Images from the original note were not included. [facility] New Patient Evaluation PATIENT NAME: Faisal Alarcon DATE OF SERVICE: June 22, 2024 CONSULTING PROVIDER: Vikas Travis [address] [facility] [address] REASON FOR CONSULT: Vikas Travis sends the [...] day. Blood-Glucose Meter,Continuous (FREESTYLE MARIELLE 3 READER) [facility] Use to check blood sugar at least [...] mouth every 12 hours. Prescribed by outside supplier engineer Review of Systems Cardiovascular: Negative for palpitations. [...] untreated CJ including but not limited to OH/HF/CVA, testing for CJ, treatment with PAP therapy. Not a candidate for OAT since he is edentulous. Briefly discussed hypoglossal nerve stimulation ([employer]). We discussed different mask options for PAP. He will consider a PSG, could schedule at [place] or [place], daughter Farida uses [employer] for him, she will let me know. Abril Duval APRN.CBX OPERATOR documented in this encounterUc Health10-07-2024 NoteHNO ID: [id number] Author: ABRIL DUVAL APRN.CBX OPERATOR Service: ? Author Type: Nurse Practitioner Type: Progress Notes Filed: 06/23/2024 16:46 Note Text: [facility] New Patient Evaluation PATIENT NAME: Faisal Alarcon DATE OF SERVICE: June 22, 2024 CONSULTING PROVIDER: Vikas Travis [address] [facility] [address] REASON FOR CONSULT: Vikas Travis sends the [...] day. Blood-Glucose Meter,Continuous (FREESTYLE MARIELLE 3 READER) [facility] Use to check blood sugar at least [...] inhaler Inhale 2 Puf (more content not included)...[facility]10-07-2024 Telephone encounter Note* Telephone Encounter - Kennedi Frey LPN - 06/23/2024 2:07 PM EDT Attempted to reach pt by phone without success. Mailbox is full. Try later. Kennedi Frey LPN [facility]10-07-2024 Telephone encounter Note* Telephone Encounter - Kennedi Frey LPN - 06/23/2024 2:07 PM EDT ----- Message from Julianna Hood sent at 06/23/2024 1:51 PM EDT ----- Your vitamin D level is very low. Please consider vyfd-fcq-iqgho vitamin D3-2000 units daily. Your white blood count is improving but now developing some mild anemia. Please recheck CBC in a month again. [facility]10-04-2024 NoteHNO ID: [id number] Author: MATHIEU VIRGEN MD Service: ? Author [...] Free style marielle script needs sent through [employer] He is wanting us to send his [...] mouth every 12 hours. Prescribed by outside supplier engineer No current facility-administered medications for this visit. [...] YRS REDUCIBLE Hernia r (more content not included)...[facility]10-04-2024 History of Present illness Narrative* Mathieu Virgen [...] Free style marielle script needs sent through [employer] He is wanting us to send his scooter request to [employer]. They had requested a letter in thepast [...] mouth every 12 hours. Prescribed by outside supplier engineer No current facility-administered medications for this visit. [...] NOS Mathieu Virgen MD documented in this encounterUc Health10-04-2024 Telephone encounter Note * Telephone Encounter - Renetta Gant MA - 06/20/2024 1:34 PM EDT Patient phones requesting refills as follows: Requested Prescriptions Pending Prescriptions Disp Refills ELIQUIS 5 mg tab(s) 60 tablet 1 Sig: Take 1 tablet by mouth two times a day. Please review and advise. Renetta Gant MA [facility]10-04-2024 Miscellaneous Notes* Telephone Encounter - Renetta Gant MA - 06/20/2024 1:34 PM EDT Patient phones requesting refills as follows: Requested Prescriptions Pending Prescriptions Disp Refills ELIQUIS 5 mg tab(s) 60 tablet 1 Sig: Take 1 tablet by mouth two times a day. Please review and advise. Renetta Gant MA documented in this encounterUc Health10-04-2024 Telephone encounter Note * Telephone Encounter - Jaylene Henley LPN - 06/20/2024 11:23 AM EDT Patient has visit today. Clinical staff can follow up with daughter at visit. [facility]10-04-2024 Miscellaneous Notes* Telephone Encounter - Jaylene [...] to patient's scooter and pt's insurance. Farida [phone]. Thank you. documented in this encounterUc Health10-02-2024 Telephone encounter Note * Telephone Encounter - Angelina Bliss RN - 06/18/2024 4:28 PM EDT Patient's daughter Farida Beck calling and requesting to speak specifically with PCP Jaylene blackwell. This is in regard to patient's scooter and pt's insurance. Farida [phone]. Thank you. [facility]10-01-2024 Telephone encounter Note* Telephone Encounter - Kennedi Frey LPN - 06/17/2024 9:36 AM EDT Received a call from Alison with [employer]. PH: [phone]. She reports receiving information on a scooter. Alison reports this has to go thru pt's [employer] 1st and they will fax all information with details to [employer] for PA to be done. I called daughter Farida and she reports they are using [employer] fax:[phone] PH: [phone] Spoke with [employer] and after they received the fax they will go thru it and send forms to be filled out and once those have been returned they will send to [employer] for PA . Information fas been faxed. Kennedi Frey LPN [facility]10-01-2024 Miscellaneous Notes* Telephone Encounter - Kennedi Frey LPN - 06/17/2024 9:36 AM EDT Received a call from Alison with [employer]. PH: [phone]. She reports receiving information on a scooter. Alison reports this has to go thru pt's [employer] and they will fax all information with details to [employer] for PA to be done. I called daughter Farida and she reports they are using [employer] fax:[phone] PH: [phone] Spoke with [employer] and after they received the fax they will go thru it and send forms to be filled out and once those have been returned they will send to [employer] for PA . Information fas been faxed. Kennedi Frey LPN documented in this encounterUc Health09-30-2024 Telephone encounter Note * Telephone Encounter - Jaylene Henley LPN - 06/16/2024 4:24 PM EDT Will fax letter again as requested. [facility]09-30-2024 Miscellaneous Notes* Telephone Encounter - Jaylene Henley LPN - 06/16/2024 4:24 PM EDT Will fax letter again as requested. documented in this encounterUc Health09-23-2024 Telephone encounter Note * Telephone Encounter [...] Lynn LPN June 09, 2024 8:49 AM [facility]-23-2024 Miscellaneous Notes* Telephone Encounter - Julianna [...] 09, 2024 8:49 AM documented in this encounterUc Health09-14-2024 NoteHNO ID: [id number] Author: AMAIRANI MCCLENDON APRN.CAESAR Service: ? Author [...] care plan. Patient's caregiver will take him now.[facility] [facility] History of Present illness Narrative* Amairani Mcclendon [...] will take him now. documented in this encounterUc Health09-14-2024 Telephone encounter Note * Telephone Encounter [...] BP, rapid pulse) Protocols used: Dizziness - Gwshfdmkhteghxj-WODJP-VK [facility]09-14-2024 Miscellaneous Notes* Telephone Encounter - Narda [...] BP, rapid pulse) Protocols used: Dizziness - Umislbmxepaedzx-IMNCD-KP documented in this encounterUc Health08-19-2024 Telephone encounter Note * Telephone Encounter [...] Bob LPN May 05, 2024 5:34 PM [facility]-19[facility] Miscellaneous Notes* Telephone Encounter - Christian [...] 05, 2024 5:34 PM documented in this encounterUc Health07-29-2024 Telephone encounter Note * Telephone Encounter [...] Bob LPN April 14, 2024 11:53 AM [facility]07-29-2024 Miscellaneous Notes* Telephone Encounter - Christian [...] 14, 2024 11:53 AM documented in this encounterUc Health07-26-2024 History of Present illness Narrative* Mariaelena Curry, DO - 04/11/2024 5:27 PM EDT Virtualist Progress Note Triage Call I have communicated my name and active licensure. The patient's identity and physical location wereverified at the time of this visit. Either the patient or their legal charter representative has been informed of the risks and benefits of -- and alternatives to -- treatment through a remote evaluation andconsents to proceed with the evaluation remotely. Triage source: Triage Call (Nurse Student Activities Director, Medical Care at Home - [facility] Triage, [facility] Triage, [facility] Phone Triage) Was patient downgraded (i.e. disposition other than go to the ED was advised)? Yes Mode of contact: Audio Only Visit History/Physical Exam: 79 y/o male presents with hematuria. Went to ER in [place] yesterday. No records on care everywhere. Daughter [...] is considering taking him to main [place] to see if he can have [...] in as Primary Virtualist, Secondary Virtualist, or [facility] Telehealth provider: Secondary documented in this encounterUc Health07-26-2024 Telephone encounter Note * Telephone Encounter - Randi Turner RN - 04/11/2024 4:49 PM EDT Reason for Call: Patient and daughter calling with concerns of blood in urine Outcome: Recommendation to see HCP or PCP Triage within 4 hours Daughter refused ED. Stated they went to [place] ED yesterday and they could not do a Cystoscopy. Has appointment with Urology 04/29. Recommended [facility] ED, daughter wanted to speak to provider Name of Provider contacted for further advice: Dr. Mariaelena Curry Provider's recommendation: PCP office visit Sunday or Sunday, go to ED if worsening symptoms Patient was conferenced to [facility] in Appointment Center for Sunday appointment scheduling. [...] today Protocols used: Urine - Blood In-ADULT- [facility]07-26-2024 Miscellaneous Notes* Telephone Encounter - Randi Turner RN - 04/11/2024 4:49 PM EDT Reason for Call: Patient and daughter calling with concerns of blood in urine Outcome: Recommendation to see HCP or PCP Triage within 4 hours Daughter refused ED. Stated they went to [place] ED yesterday and they could not do a Cystoscopy. Has appointment with Urology 04/29. Recommended [facility] ED, daughter wanted to speak [...] Urine - Blood In-ADULT- documented in this encounterUc Health07-26-2024 Telephone encounter Note * Telephone Encounter [...] Mcclendon MA April 11, 2024 8:02 AM [facility]-26-2024 Miscellaneous Notes* Telephone Encounter - Najma [...] 11, 2024 8:02 AM documented in this encounterUc Health07-24-2024 History of Present illness Narrative* Andrew Guallpa APRN.CBX OPERATOR - 04/09/2024 2:29 PM EDT Images from [...] times a day before meals. Getting through [employer] dilTIAZem CD (CARDIZEM CD, CARTIA XT) 120 [...] mouth every 12 hours. Prescribed by outside supplier engineer colestipol (COLESTID) 1 gram tablet Take 1 [...] of care. This note was generated using [employer] software. It may contain errors in wording, punctuation, or spelling. Andrew Guallpa APRN.CBX OPERATOR documented in this encounterUc Health07-08-2024 Telephone encounter Note * Telephone Encounter - Mathieu Virgen MD - 03/24/2024 4:59 PM EDT Reviewed venous insuffiencey and labs. His diltiazem may be contributing. Offered to see him if need be. Discussed compression hose. Keep cool and elevated. Offered vascular eval as well. Daughter's questions answered. [facility]07-08-2024 Miscellaneous Notes* Telephone Encounter - Mathieu [...] pt. Marilin Stein MA documented in this encounterUc Health07-08-2024 Telephone encounter Note * Telephone Encounter - Jaylene Henley LPN - 03/24/2024 4:07 PM EDT This is her response to the message that Prosper sent from his lab results on 02/28/24. [facility]07-06-2024 Telephone encounter Note* Telephone Encounter - Marilin Stein MA - 03/22/2024 8:27 AM EDT Please review message regarding pt. Marilin Stein MA [facility]07-05-2024 Telephone encounter Note* Telephone Encounter - Reanna Brannon RN - 03/21/2024 1:17 PM EDT Patient's daughter notified of results and provider's instructions. Patient daughter verbalizes understanding. Reanna Brannon RN [facility]07-05-2024 Miscellaneous Notes* Telephone Encounter - Reanna [...] pumps to reduce swelling. Telephone on 03/21/24 [facility] KN[facility] HI 30-40WT CONSULT TO LYMPHEDEMA THERAPY Venous incompetence (primary encounter diagnosis) Lymphedema of left leg Varicose veins of both legs with edema Prosper Patel PA-C documented in this encounterUc Health07-05-2024 Telephone encounter Note * Telephone Encounter - Vikas Regalado RN - 03/21/2024 1:05 PM EDT Left vm on daughters vm to return call to nurse for provider's message, regarding patient's US results. [facility]07-05-20[facility] Telephone encounter Note* Telephone Encounter - [...] pumps to reduce swelling. Telephone on 03/21/24 [employer] KNEE HI 30-40WT CONSULT TO LYMPHEDEMA THERAPY Venous incompetence (primary encounter diagnosis) Lymphedema of left leg Varicose veins of both legs with edema Prosper Patel PA-C [facility]07-03-2024 Telephone encounter Note* Telephone Encounter - Kennedi Frey LPN - 03/19/2024 9:20 AM EDT Daughter notified with results below and report faxed to [facility]. Kennedi Frey LPN [facility]07-03-2024 Miscellaneous Notes* Telephone Encounter - Kennedi Frey LPN - 03/19/2024 9:20 AM EDT Daughter notified with results below and report faxed to [facility]. Kennedi Frey LPN * Telephone Encounter - Vikas Regalado, RN - 03/19/2024 8:18 AM EDT Phoned patient and given provider's message below. Patient reports he is [place] and asked this nurse to call his daughter, Farida, to give her the message. Left vm on Farida's vm asking her to return call to triage nurse for provider's message. * Telephone Encounter - Vikas Travis PA-C [...] up from 13 mmHg. He follows with [place] [facility]: please have him follow up with them in next few months and please have the echo sent there for them to review. Thanks, Prosper Travis PA-C documented in this encounterUc Health07-03-2024 Telephone encounter Note * Telephone Encounter - Vikas Regalado RN - 03/19/2024 8:18 AM EDT Phoned patient and given provider's message below. Patient reports he is [place] and asked this nurse to call his daughter, Farida, to give her the message. Left vm on Farida's vm asking her to return call to triage nurse for provider's message. [facility]07-03-[facility] Telephone encounter Note* Telephone Encounter - [...] up from 13 mmHg. He follows with [place] [facility]: please have him follow up with them in next few months and please have the echo sent there for them to review. Thanks, Prosper Travis PA-C [facility]06-20-[facility] Telephone encounter Note* Telephone Encounter - [...] date of : No Nasra Muñiz LPN [facility]06-20-2024 Miscellaneous Notes* Telephone Encounter - Nasra [...] No Nasra Muñiz LPN documented in this encounterUc Health06-13-2024 History of Present illness Narrative* Vikas [...] feet walking with dyspnea- not new. Sees [place] [facility], last visit 10/24/2023: Notes identified paroxysmal [...] Lymph 1.00 - 4.00 k/uL 2.31 1.59 Navarro% % 11.1 11.1 Abs Navarro <0.87 k/uL 1.14 (H) 1.24 (H) Eosin% [...] times a day before meals. Getting through [employer] 5 Each 1 dilTIAZem CD (CARDIZEM CD, [...] mouth every 12 hours. Prescribed by outside supplier engineer 60 tablet 0 colestipol (COLESTID) 1 gram [...] completed. Vikas Travis PA-C documented in this encounterUc Health05-28-2024 Telephone encounter Note * Telephone Encounter - Janet King MA - 02/12/2024 5:11 PM EDT Patient's daughter was made aware of the results and verbalizes understanding. Janet King Ma [facility]05-28-2024 Miscellaneous Notes* Telephone Encounter - Janet [...] days as ordered Protocols used: No Guideline Yefgmlfhs-MYQJX-GX * Telephone Encounter - Angelina Bliss RN [...] advise! Angelina Bliss RN documented in this encounterUc Health05-28-2024 Telephone encounter Note * Telephone Encounter - Mathieu Virgen MD - 02/12/2024 4:31 PM EDT Check weight daily and call if weight goes up over three lbs in 24 hours. Call if worsening swelling or shortness of breath. His EKG is unchanged. It was read the day he was here when Prosper saw him. [facility] Telephone encounter Note* Telephone Encounter - [...] days as ordered Protocols used: No Guideline Wopzshbno-ITUQJ-UY [facility]05-28-2024 Telephone encounter Note* Telephone Encounter - [...] to me. Please advise! 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 Sees [place] [facility], last visit 10/24/2023: Notes identified paroxysmal [...] times a day before meals. Getting through [employer] 5 Each 1 dilTIAZem CD (CARDIZEM CD, [...] mouth every 12 hours. Prescribed by outside supplier engineer 60 tablet 0 No current facility-administered medications [...] 05/18/2023, NSR 1 degree AVB, LAFB pending supplier engineer review. ASSESSMENT/PLAN: 1. SOB (shortness of breath) - ICD9: 786.05, ICD10: R06.02 (primary diagnosis) Suspect r/t body habitus and deconditioning, chronic lung disease In no acute distress. No chest pain or evidence of DVT. EKG stable Due to sudden weight gain will trial lasix 40mg daily x 5 days with weight onb 5th day to be reported through [employer]- daughter will see this gets completed If chest pain, worsening SOB, feeling worse:go to ER Will send note to [place] [facility] for continuity of care. - COMPLETE [...] data. Vikas Travis PA-C documented in this encounterUc Health05-20-2024 Telephone encounter Note * Telephone Encounter [...] disease. 7. : N/A Protocols used: Ankle Oynhmlpr-LASQK-FC, Leg Swelling and Drisu-TEEXU-PD [facility]05-20-2024 Miscellaneous Notes* Telephone Encounter - Vikas [...] disease. 7. : N/A Protocols used: Ankle Esqkkfnc-FYMID-IE, Leg Swelling and Iaodx-RJBHM-FW documented in this encounterUc Health05-03-2024 Telephone encounter Note * Telephone Encounter [...] Please advise. Thank you. Christian Bob LPN. [facility]05-03-2024 Miscellaneous Notes* Telephone Encounter - Christian [...] you. Christian Bob LPN. documented in this encounterUc Health04-24-2024 Miscellaneous Notes* Telephone Encounter - Renetta Gant MA - 01/09/2024 10:36 AM EDT Patient phones requesting refills as follows: Requested Prescriptions Pending Prescriptions Disp Refills ELIQUIS 5 mg tab(s) 60 tablet 1 Sig: Take 1 tablet by mouth two times a day. Please review and advise. Renetta Gant MA documented in this encounterUc Health04-24-2024 Telephone encounter Note * Telephone Encounter - Renetta Gant MA - 01/09/2024 10:36 AM EDT Patient phones requesting refills as follows: Requested Prescriptions Pending Prescriptions Disp Refills ELIQUIS 5 mg tab(s) 60 tablet 1 Sig: Take 1 tablet by mouth two times a day. Please review and advise. Renetta Gant MA [facility]04-16-2024 Miscellaneous Notes* Telephone Encounter - Mathieu Virgen MD - 01/01/2024 2:13 PM EDT See letter. documented in this encounterUc Health04-16-2024 Miscellaneous Notes* Telephone Encounter - Mathieu Virgen MD - 01/01/2024 2:12 PM EDT See other note * Telephone Encounter - Vikas Regalado RN - 01/01/2024 12:07 PM EDT Daughter, Farida, reports she spoke with [employer] insurance, who informed her pcp would need to write a Prior Auth letter stating condition and diagnoses, and specify patient needs a lite weight, andfax it to [employer] at fax # [phone]. [facility] would then decide if they will cover it. Please phone Farida with any questions. documented in this encounterUc Health04-15-2024 Miscellaneous Notes* Telephone Encounter - Mathieu Virgen MD - 12/31/2023 9:37 AM EDT Printed. * Telephone Encounter - Jaylene Henley LPN - 12/31/2023 8:46 AM EDT See [employer] message needs it to be for this scooter please. documented in this encounterUc Health04-09-2024 Miscellaneous Notes* Addendum Note - Mathieu Virgen MD - 12/25/2023 2:15 PM EDTAddended by: MATHIEU VIRGEN on: 12/25/2023 02:15 PM Modules accepted: Orders documented in this encounterUc Health04-09-2024 History of Present illness Narrative* Mathieu [...] chills. No cough. No dizziness. Latest Ref [facility] 11/28/2023 WBC 3.70 - 11.00 k/uL 10.24 [...] Abs Lymph 1.00 - 4.00 k/uL 2.31 Navarro% % 11.1 Abs Navarro <0.87 k/uL 1.14 (H) Eosin% % 3.4 [...] mouth every 12 hours. Prescribed by outside supplier engineer No current facility-administered medications for this visit. [...] six months or prn documented in this encounterUc Health02-29-2024 Miscellaneous Notes* Telephone Encounter - Julianna [...] to file. Please advise documented in this encounterUc Health02-28-2024 Miscellaneous Notes* Telephone Encounter - Tammy [...] Please advise. Pt uses [facility] in [place]. Julia Chilel LPN documented in this encounterUc Health02-28-2024 Miscellaneous Notes* Telephone Encounter - Tammy [...] you. Tammy Davies LPN. documented in this encounterUc Health02-16-2024 Miscellaneous Notes* Telephone Encounter - Jaylene [...] 12/05/23 Jaylene Henley LPN documented in this encounterUc Health01-27-2024 Miscellaneous Notes* Telephone Encounter - Milye Pemberton Ma - 10/13/2023 10:12 AM EST [...] you. Miley Pemberton Ma. documented in this encounterUc Health01-06-2024 Discharge summary Author Tre Johnson [facility] September 22, 2023 2:48pm Note Date/Time September 22, 2023 10 :58am [facility] Medical Records Department [address] [place] [address] Emergency Department Summary 09/22/23 MR#: [id number] Acct: [id number] Name: FAISAL ALARCON Rep #:[id number] : 1945 78 From: Tre Johnson DO [...] he ate a big Mac and fries. [facility] Medical History Acute respiratory failure with hypoxia [...] 71.2 H Lymph % (Auto) 14.7 L Navarro % (Auto) 9.9 Eos % (Auto) 3.4 [...] 11:54 EST Reading Location ID and State: [facility] / [place] Tel , Service support , Discharge Plan [...] your Primary Care Provider. Call [facility] ([phone]) or report to the closest Emergency Room. Call 911 if necessary. 09/22/23 1448 <Electronically signed by Tre Johnson DO> Cosigner Signature (if applicable): CC: Dr. Mathieu Virgen MD ~ Signed [facility] Work Phone: 1(815) 170-230312-21-2023 Miscellaneous Notes* Telephone Encounter - Liyah Monroy [...] last month. Protocols used: Cough - Acute Zqrtmkqsgw-DDMPQ-WQ documented in this encounterUc Health12-11-2023 Miscellaneous Notes* Telephone Encounter - Christian Bob - 08/27/2023 7:18 PM EST Patient phones requesting refills as follows: Requested Prescriptions Pending Prescriptions Disp Refills simvastatin (ZOCOR) 40 mg tablet 90 tablet 3 Sig: Take 1 tablet by mouth daily at bedtime. ALFA 07/23/23 NOV 12/05/23 Please review and advise. Christian Bob documented in this encounterUc Health11-21-2023 Miscellaneous Notes* Telephone Encounter - Lulu Walls - 08/07/2023 2:34 PM EST Forms completed and signed and faxed back to [employer] at [phone]. Patient informed. Lulu Walls * Telephone Encounter - Lulu Walls - 08/07/2023 2:14 PM EST Type of form: Patient Assistance. [employer] Form received via walk in When form is completed, Fax form to number on form. Form has been forwarded to Physician Desk: Dr. Virgen. Lulu Walls documented in this encounterUc Health11-06-2023 History of Present illness Narrative* Brenda [...] 23, 2023 2:55 PM documented in this encounterUc Health11-06-2023 History of Present illness Narrative* Pio [...] mouth every 12 hours. Prescribed by outside supplier engineer famotidine (PEPCID) 20 mg tablet Take 1 [...] RIGHT Pio Nicole MD documented in this encounterUc Health10-27-2023 Miscellaneous Notes* Telephone Encounter - Jaylene Henley LPN - 07/13/2023 4:19 PM EDT Notified that will place in medical records for pharmacy picking tech. Can pharmacy picking tech starting tomorrow 07/14/23. * Telephone Encounter - Mathieu Virgen MD - 07/13/2023 2:10 PM EDT Printed. * Telephone Encounter - Janet King Ma - 07/13/2023 1:49 PM EDT Received notification that patient will be due for re-enrollment for the [facility] patient assistance programs of Humalog and Gianni starting 09/17/23. Call to daughter and advised her of this. She will start the process and get it to us. She is asking for a handicap placard to be completed for pt. Once done, call her for pharmacy picking tech. Janet King Ma documented in this encounterUc Health10-03-2023 Miscellaneous Notes* Telephone Encounter - Jackelin [...] you. Jackelin Tinajero RN documented in this encounterUc Health09-23-2023 History of Present illness Narrative* Pio [...] three times daily before meals. Getting through [facility] metFORMIN ER (GLUCOPHAGE XR) 500 [...] mouth every 12 hours. Prescribed by outside supplier engineer aspirin 81 mg chewable tablet Take 81 [...] FRONTAL/LAT Pio Nicole MD documented in this encounterUc Health09-23-2023 Miscellaneous Notes* Telephone Encounter - Adele [...] last 30 days. Protocols used: Influenza - Lfgmrddb-TUGCU-OX documented in this encounterUc Health09-21-2023 Miscellaneous Notes* Telephone Encounter - Kennedi [...] you. Kennedi Frey LPN documented in this encounterUc Health09-20-2023 History of Past illness Narrative* Problem [...] of this encounter (statuses as of 06/06/2023) [facility] of Past illness Narrative* Problem [...] of this encounter (statuses as of 06/08/2023) [facility] of Past illness Narrative* Problem [...] of this encounter (statuses as of 06/09/2023) [facility] History of Past illness Narrative* Problem [...] of this encounter (statuses as of 06/09/2023) [facility] History of Past illness Narrative* Problem [...] of this encounter (statuses as of 06/21/2023) [facility] History of Past illness Narrative* Problem [...] of this encounter (statuses as of 07/13/2023) [facility] of Past illness Narrative* Problem [...] of this encounter (statuses as of 07/24/2023) [facility] History of Past illness Narrative* Problem [...] of this encounter (statuses as of 08/08/2023) [facility] History of Past illness Narrative* Problem [...] of this encounter (statuses as of 08/29/2023) [facility] of Past illness Narrative* Problem [...] of this encounter (statuses as of 09/07/2023) [facility] of Past illness Narrative* Problem [...] of this encounter (statuses as of 10/14/2023) [facility] of Past illness Narrative* Problem [...] of this encounter (statuses as of 11/02/2023) [facility] of Past illness Narrative* Problem [...] of this encounter (statuses as of 11/15/2023) [facility] of Past illness Narrative* Problem [...] of this encounter (statuses as of 11/15/2023) [facility] of Past illness Narrative* Problem [...] of this encounter (statuses as of 12/26/2023) [facility] of Past illness Narrative* Problem [...] of this encounter (statuses as of 01/01/2024) [facility] of Past illness Narrative* Problem [...] of this encounter (statuses as of 01/02/2024) [facility] of Past illness Narrative* Problem [...] of this encounter (statuses as of 01/02/2024) [facility] History of Present illness Narrative* Mathieu [...] Abs Lymph 1.00 - 4.00 k/uL 1.48 Navarro% % 9.5 Abs Navarro <0.87 k/uL 1.16 (H) Eosin% % 1.7 [...] Ketones, Urine Trace, Negative Negative Negative Specific Joy, Ur 1.005 - 1.030 1.022 1.022 Hemoglobin/Blood,Ur [...] three times daily before meals. Getting through [facility] losartan-hydroCHLOROthiazide (HYZAAR) 100-12.5 mg [...] mouth every 12 hours. Prescribed by outside supplier engineer aspirin 81 mg chewable tablet Take 81 [...] I48.0 - stable. Stay on meds. See [place] [facility] in the winter again. 4. [...] cough. Mathieu Virgen MD documented in this encounterUc Health09-18-2023 Miscellaneous Notes* Telephone Encounter - Angelina [...] advise. Kristina Higuera LPN documented in this encounterUc Health09-01-2023 Instructions* Patient Instructions* Vikas Travis PA-C - 05/18/2023 4:12 PM EDT Please push fluids with water, non-caffeinated and non-alcoholic beverages, 6-8 glasses today. If you feel weak, faint, or have chest pain, call 911 and have the squad take you to ER. Try to stay cool for the next few days and rest. documented in this encounterUc Health09-01-2023 History of Present illness Narrative* Vikas [...] mouth every 12 hours. Prescribed by outside supplier engineer aspirin 81 mg chewable tablet Take 81 [...] a chair. Negative Romberg. No past-pointing, normal hqqw-kb-tzzw. Seems stiff which I think is affecting his gait. EKG demonstrates normal sinus rhythm with first-degree AV block with SD of 222 MS, otherwise metrics are normal. 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 There is no change from prior EKG 03/01/2023 online under [facility]: I was able to download [...] there. Vikas Travis PA-C documented in this encounterUc Health08-30-2023 Miscellaneous Notes* Telephone Encounter - Mathieu [...] and advise. Gin Khan documented in this encounterUc Health08-25-2023 Miscellaneous Notes* Telephone Encounter - Jaylene Henley LPN - 05/11/2023 3:48 PM EDT Forms completed and faxed. * Telephone Encounter - Jaylene Henley LPN - 05/11/2023 3:08 PM EDT Type of form: Prescription Assistance Form received via walk in When form is completed, Fax form to [phone] Form has been forwarded to Physician Desk: Dr. Param Henley LPN documented in this encounterUc Health08-15-2023 History of Present illness Narrative* Vikas Travis PA-C - 05/01/2023 3:24 PM EDT Here to review bleeding area from largest skin tag removal yesterday. No areas bleeding on exam. Instructed if bleeding, hold pressure solidly for 5 minutes and recheck. BP 118/70 Pulse 80 Temp 36.6 C (97.9 F) (Left Tympanic) Resp 20 SpO2 96% Vikas Travis PA-C documented in this encounterUc Health08-14-2023 Instructions* Patient Instructions* Vikas Travis PA-C [...] recheck in three weeks. documented in this encounterUc Health08-14-2023 History of Present illness Narrative* Vikas [...] times daily before meals. Getting through [employer] [facility] 5 Each 1 ELIQUIS 5 mg tab(s) [...] mouth every 12 hours. Prescribed by outside supplier engineer aspirin 81 mg chewable tablet Take 81 [...] appointment Vikas Travis PA-C documented in this encounterUc Health07-28-2023 Miscellaneous Notes* Telephone Encounter - Shaye [...] Thank you. MANDI Santos documented in this encounterUc Health07-06-2023 Miscellaneous Notes* Telephone Encounter - Denisha Shepard APRN.CNP - 03/22/2023 12:48 PM EDT This encounter was opened in error. documented in this encounterUc Health06-19-2023 Instructions* Patient Instructions* Andrew Guallpa APRN.CNP [...] more? National Digestive Diseases Information Clearinghouse2 Information [place], [place] [address] www.digestive.niddk.nih.gov email: References: National Digestive Diseases Information Clearinghouse. Constipation. digestive.niddk.nih.gov Accessed June 21, 2012. [employer]. Understanding Constipation. www.gastro.org. Accessed June 21, 2012. Copyright 7776-2680 The [facility]. All rights reserved This information is provided by the [facility] and is not intended to replace the medical advice of your doctor or health care provider. Please consult your health care provider for advice about a specific medical condition. For additional health information, please contact the Center for Consumer Health Information at the [facility] or toll-free extension [phone]. If you prefer, you may visit [email or web address]/ or [email or web address]. This document was last reviewed on: 2012 index #4056 documented in this encounterUc Health06-19-2023 History of Present illness Narrative* Andrew [...] mouth every 12 hours. Prescribed by outside supplier engineer aspirin 81 mg chewable tablet Take 81 [...] of care. This note was generated using [employer] software. It may contain errors in wording, punctuation, or spelling. Andrew Guallpa APRN.CAESAR documented in this encounterUc Health06-16-2023 History of Present illness Narrative* Mathieu Virgen MD - 03/02/2023 4:21 PM EDT Patient presents with: ED Follow-up HPI: Patient presents today for office visit for ER follow up. HOSPITAL/ER FOLLOW UP: Reason for visit: 02/26/23 hypoglycemia (40) 03/01/23 abd pain and nausea Which facility: [facility] Diagnosis: mild dehydration, abd pain Testing [...] three times daily before meals. Getting through [employer] ELIQUIS 5 mg tab(s) Take 1 tablet [...] mouth every 12 hours. Prescribed by outside supplier engineer aspirin 81 mg chewable tablet Take 81 [...] UROLOGY Mathieu Virgen MD documented in this encounterUc Health06-15-[address] Taylor [facility] March 01, 2023 10:43pm Note Date/Time March 01, 2023 8:54 pm [facility] Medical Records Department [address] [place] [address] Emergency Department Summary 03/01/23 MR#: [id number] Acct: [id number] Name: FAISAL ALARCON Rep #:[id number] : 1945 77 From: Kodi Taylor MD [...] Nothing specifically makes this better or worse. [facility] Medical History Acute respiratory failure with hypoxia [...] % (Auto) 62.9 Lymph % (Auto) 21.9 Navarro % (Auto) 11.2 H Eos % (Auto) [...] Clarity Clear Urine pH 5.0 Ur Specific Joy 1.025 Urine Protein 15 H Urine Glucose [...] sign of acute ST elevation or depression. SD interval is normal. QRS duration and QTc [...] your Primary Care Provider. Call [facility] ([phone]) or report to the closest Emergency Room. Call 911 if necessary. 03/01/232242 <Electronically signed by Kodi Taylor MD> Cosigner Signature (if applicable): CC: Dr. Mathieu Virgen MD ~ Signed [facility] Work Phone: 1(531) 775-629006-08-2023 Miscellaneous Notes* Telephone Encounter - Tammy Davies [...] daily?If so will need new rx to [facility] pharmacy. Please advise documented in this encounterUc Health06-02-2023 Miscellaneous Notes* Telephone Encounter - Janet [...] repeated in 10-14 days. documented in this encounterUc Health06-02-2023 Instructions* Patient Instructions* Denisha Shepard APRN.CNP - 02/16/2023 3:08 PM EDT Lurdes wrap. Rest Ice Prop the foot. Tylenol as needed. documented in this encounterUc Health06-02-2023 History of Present illness Narrative* Denisha [...] mouth every 12 hours. Prescribed by outside supplier engineer aspirin 81 mg chewable tablet Take 81 [...] agrees with the plan. documented in this encounterUc Health05-31-2023 Nurse Note* Michelle Jara RN - [...] well. Michelle Jara RN documented in this encounterUc Health05-05-2023 History of Present illness Narrative* Mathieu [...] times daily before meals. Getting through [facility] ELIQUIS 5 mg tab(s) Take 1 tablet [...] mouth every 12 hours. Prescribed by outside supplier engineer aspirin 81 mg chewable tablet Take 81 [...] SURGERY Mathieu Virgen MD documented in this encounterUc Health03-15-2023 History of Present illness Narrative* Mathieu Virgen MD - 11/29/2022 9:33 AM EDT Patient presents with: Transition Of Care HPI: Patient presents today for office visit for hospital follow up. Seen in [facility] on 11/21/22. Discharged 11/21/22 Chest pain. [...] note: TRANSITION CARE MANAGEMENT (TCM) INITIAL CONTACT [employer] Sales Manager Outreach Provider Action/FYI: -pt admitted to [facility] on 11/21/22 for 24hr observation d/t [...] Abs Lymph 1.00 - 4.00 k/uL 1.95 Navarro% % 9.8 Abs Navarro <0.87 k/uL 1.09 (H) Eosin% % 4.1 [...] mouth every 12 hours. Prescribed by outside supplier engineer aspirin 81 mg chewable tablet Take 81 [...] stable. Mathieu Virgen MD documented in this encounterUc Health03-13-2023 Miscellaneous Notes* Telephone Encounter - Sheila [...] as the lab orders are in. PH> [phone]. Kennedi Frey LPN * Telephone Encounter - [...] Thank you, Michaelle HERBERT documented in this encounterUc Health03-08-2023 History of Present illness Narrative* Christian Bob LPN - 11/22/2022 9:23 AM EST TRANSITION CARE MANAGEMENT (TCM) INITIAL CONTACT [employer] Sales Manager Outreach Provider Action/FYI: -pt admitted to [facility] on 11/21/22 for 24hr observation d/t [...] flowsheet data found. SUMMARY: -Pt discharged from [facility] on 11/21/22. -Admitted for: Chest Pain Do you have a hospital follow up appointment with your PCP? Appointment on 11/[address] Virgen. Yes. Remind patient of appointment date, time, and location. If not within 14 calendar days of discharge - please reschedule accordingly. Medical records from recent hospitalization: Epic Placed in provider mailbox for further review. documented in this encounterUc Health03-07-2023 History and physical note Author Dr. Stevenson [facility] November 21, 2022 7:08am Note Date/Time November 21, 2022 6:46 am [facility] Medical Records Department [address] [place] [address] History & Physical Exam 11/21/22 0644 MR#: [id number] Acct: [id number] Name: FAISAL ALARCON Rep #:[id number] : 1945 77 From: Mariza Stevenson MD PCP: Dr. Mathieu Virgen MD Status:ADM I NO Location: [place] [address] HPI - General General Date of Admission: 11/21/22 Date of Service: 11/21/22 Chief Complaint: Chest pain. HPI Narrative The patient is a 77 y/o M w/ PMHx: PAF, BPH, HTN, HLD, IDDM, Nonobstructive CAD,Morbid obesity, Former tobacco use who presents to the [facility] ED on 11/21/22 initially earlier in the [...] included CBC with WC 12.1 coming 114.7, with left shift, BMP with sodium 134, [...] similar. In the ED patient administered NG. [facility] Medical History Acute respiratory failure with [...] Former tobacco use who presents to the [facility] ED on 11/21/22 initially earlier in the [...] 55 minutes. Charges/Coding Visit Charges Inpatient E&M: 94075 Init Hosp L2 Procedures Hospitalists Procedures: 02172 Advncd Care Plan 30 Min 11/21/22 0708 <Electronically signed by Mariza Stevenson MD> Cosigner Signature (if applicable): CC: Dr. Mariza Stevenson MD; Dr. Mathieu Virgen MD~ Signed [facility] Work Phone: 1(553) 363-950402-25-2023 Miscellaneous Notes* Telephone Encounter - Christian Bob LPN - 11/11/2022 10:44 AM EST Patient phones requesting refills as follows: Requested Prescriptions Pending Prescriptions Disp Refills losartan-hydroCHLOROthiazide (HYZAAR) 100-12.5 mg per tablet 90 tablet 1 Sig: Take 1 tablet by mouth once daily. Please review and advise. Christian Bob LPN documented in this encounterUc Health02-24-2023 Miscellaneous Notes* Telephone Encounter - Gin Herbert - 11/10/2022 11:30 AM EST Pharmacy verified in [facility] Patient has been identified by name and [...] advise. Gin Longoria Pss documented in this encounterUc Health02-09-2023 Miscellaneous Notes* Telephone Encounter - Kaitlyn [...] Primary Care Clinical Pharmacist documented in this encounterUc Health01-30-2023 Miscellaneous Notes* Addendum Note - Kaitlyn [...] what copay is. If affordable, she will pharmacy picking tech supply. If not affordable, she will let [...] Will await daughter's call. Kaitlyn Hernández PharmD, [facility] Primary Care Clinical Pharmacist * Telephone Encounter - Kaitlyn Hernández RPh - 10/16/2022 12:24 PM EST Patient's daughter, Farida, called PharmAdry and LMOM stating patient will be running out of insulin tomorrow, needs another free trial card. Patient has application in for [employer] PAP. She called [employer] this AM, states they still have not [...] insulin. PharmAdry advised daughter to contact [employer] and ask them to process the Basaglar [...] to keep me informed. Kaitlyn Hernández PharmD, [facility] Primary Care Clinical Pharmacist documented in this encounterUc Health01-18-2023 Miscellaneous Notes* Telephone Encounter - Christian Bob LPN - 10/04/2022 9:32 AM EST Patient phones requesting refills as follows: Requested Prescriptions Pending Prescriptions Disp Refills metFORMIN ER (GLUCOPHAGE XR) 500 mg 24 hr tablet 360 tablet 3 Sig: Take 2 tablets by mouth twice daily before meals. [facility] 05/31/22 11/29/22 Please review and advise. Christian Bob LPN documented in this encounterUc Health01-18-2023 Miscellaneous Notes* Telephone Encounter - Christian Bob LPN - 10/04/2022 9:31 AM EST Patient phones requesting refills as follows: Requested Prescriptions Pending Prescriptions Disp Refills carvedilol (COREG) 25 mg tablet 180 tablet 1 Sig: Take 1 tablet by mouth twice daily. [facility] 05/31/22 11/29/22 Please review and advise. Christian Bob LPN documented in this encounterUc Health01-13-2023 Miscellaneous Notes* Telephone Encounter - Kaitlyn Hernández, [facility] - 09/29/2022 9:18 AM EST Patient's daughter, Farida, called PharmD and LMOM stating the [employer] [facility] application for insulins was submitted this week [...] spoke with patient's daughter. Sent her a [employer] message with a Basaglar Free Trial Offer. [...] Provider: MATHIEU VIRGEN Ordering User: KAITLYN HERNÁNDEZ [facility] documented in this encounterUc Health01-10-2023 Miscellaneous Notes* Telephone Encounter - Janet King Ma - 09/26/2022 9:51 AM EST Talked to daughter and advised of time and fax number. Janet King Ma * Telephone Encounter - Jaylene Henley LPN - 09/25/2022 8:01 PM EST Sent from [phone] at 8:00pm. (If no error report in [...] [facility] shipped for this week. * Telephone Encounter [...] of medications assistance forms for insulins through [employer]. Asking if these were received and fill out? Please fax this [phone]. Please contact Farida back either way. If provider does not have form Farida can come by and drop of other form. Please review and advise, Reanna Brannon RN documented in this encounterUc Health12-05-2022 Miscellaneous Notes* Telephone Encounter - Alejandrina [...] notify patient. Alejandrina Herbert documented in this encounterUc Health11-21-2022 Miscellaneous Notes* Telephone Encounter - Reanna [...] tetanus booster?" Unsure Protocols used: Skin Foreign [id number] documented in this encounterUc Health10-06-2022 Miscellaneous Notes* Telephone Encounter - Kaitlyn Hernández RPh - 06/22/2022 11:52 AM EDT PharmAdry sent request to PAP technicians to assist with [employer] application for Jardiance 10mg daily. Kaitlyn Hernández PharmD, [facility] Primary Care Clinical Pharmacist documented in this encounterUc Health10-06-2022 History of Present illness Narrative* Kaitlyn [...] adverse effects DIET/EXERCISE/SOCIAL Hx: Has been eating [employer] food a lot this summer; went to [place] [employer] daily; goes several times per week Fried veggies, sandwiches Breakfast: couple of eggs, 4 pieces muñoz; occasionally will have waffle Lunch: yesterday had small serving mashed potatoes, baked beans, and steak Dinner: usually the same as lunch; occasionally will have salad No exercise MEDICATIONS: Pill bottles are not present Adherence: denies missed doses Pharmacy: [facility] in [place] Rx coverage: [employer] Affordability: Gets Eliquis, Humalog, [...] mouth every 12 hours. Prescribed by outside supplier engineer insulin glargine (LANTUS SOLOSTAR U-100 INSULIN) 100 [...] TG 130 08/16/2021 The ASCVD Risk score ([place] DK, et al., 2019) failed to calculate [...] time was 35 minutes. documented in this encounterUc Health10-06-2022 Instructions* Patient Instructions* Kaitlyn Hernández RPh - 06/22/2022 11:00 AM EDT START Jardiance 10mg daily. If it is too expensive, let me know. Start to work on your diet. We want all blood sugars to be less than 200 mg/dL. documented in this encounterUc Health09-14-2022 History of Present illness Narrative* Mathieu [...] Abs Lymph 1.00 - 4.00 k/uL 1.67 Navarro% % 11.8 Abs Navarro <0.87 k/uL 1.20 (H) Eosin% % 3.3 [...] mouth every 12 hours. Prescribed by outside supplier engineer simvastatin (ZOCOR) 40 mg tablet Take 1 [...] RTO in six month documented in this encounterUc Health08-22-2022 Miscellaneous Notes* Telephone Encounter - Christian Bob LPN - 05/08/2022 5:59 PM EDT Patient phones requesting refills as follows: Requested Prescriptions Pending Prescriptions Disp Refills losartan-hydroCHLOROthiazide (HYZAAR) 100-12.5 mg per tablet 90 tablet 1 Sig: Take 1 tablet by mouth once daily. [facility]FA 03/03/22 NOV 05/31/22 Please review and advise. Christian Bob LPN documented in this encounterUc Health07-23-2022 History of Present illness Narrative* Andrew Guallpa APRN.CBX OPERATOR - 04/08/2022 2:52 PM EDT Subjective HPI [...] with: Acute Visit: [facility] worried about having affects with carvedilol [...] mouth every 12 hours. Prescribed by outside supplier engineer simvastatin (ZOCOR) 40 mg tablet Take 1 [...] care. Andrew Guallpa APRN.CAESAR documented in this encounterUc Health07-07-2022 Miscellaneous Notes* Telephone Encounter - Kaitlyn Hernández RPh - 03/23/2022 1:22 PM EDT Lisy completed Rx section of [employer] application for Basaglar (to replace Lantus). Full application not required since patient already enrolled and receiving free Humalog. Rx placed on PCP's desk for signature. Kaitlyn Hernández PharmD, [facility] Primary Care Clinical Pharmacist Lisa Souza [facility] documented in this encounterUc Health07-07-2022 History of Present illness Narrative* Kaitlyn [...] Humalog, and Sanofi through [employer]AP[employer] Diabetes supplies: [employer] System: daughter sets up pill box, [...] mouth every 12 hours. Prescribed by outside supplier engineer insulin glargine (LANTUS SOLOSTAR U-100 INSULIN) 100 [...] Basaglar so he can get it through [employer] to replace Lantus Applauded on reducing [...] verbalized understanding of instructions. Kaitlyn Hernández PharmD, [facility] Primary Care Clinical Pharmacist Lisa Souza [facility] The majority of the pharmacy visit (> 50%) was spent counseling and/or coordinating care for thepatient. interaction: face to face time was 35 minutes. documented in this encounterUc Health07-07-2022 Instructions* Patient Instructions* Kaitlyn Hernández RPh [...] accurate than wrist cuffs. documented in this encounterUc Health06-20-2022 Miscellaneous Notes* Telephone Encounter - Mathieu [...] to the [facility] on [facility] [address]. Daughter, Farida, can be reached at [phone] documented in this encounterUc Health06-20-2022 Miscellaneous Notes* Telephone Encounter - Jaylene Henley LPN - 03/06/2022 12:13 PM EDT Patient has been identified by name and date of : Yes Type of form: Prescription Assistance [facility] (humalog kwconniepen) Form received via: at visit form was given to Dr Param Virgen completed form When form is completed, fax form to fax number provided. Form has been forwarded to: Nurse and faxed 03/06/22 Jaylene Henley LPN documented in this encounterUc Health06-17-2022 History of Present illness Narrative* Mathieu [...] mouth every 12 hours. Prescribed by outside supplier engineer Losartan-hydroCHLOROthiazide 100-12.5 mg per tablet Take 1 [...] three months and prn. documented in this encounterUc Health05-26-2022 Miscellaneous Notes* Telephone Encounter - Jaylene Henley LPN - 02/09/2022 11:36 AM EDT [facility] [address] [facility]. Chart Copy of medications dispensed to patient for home use February 09, 2022 Physician Initial: MIRANDA Alarcon Medication: Lantus Qty: 5 boxes Directions: Inject 90 units daily. Medications administered, dispensed and verified on the date indicated above Patient has been notified to pharmacy picking tech medication in Dr. Virgen's office. Jaylene Henley LPN documented in this encounterUc Health05-24-2022 Miscellaneous Notes* Telephone Encounter - Kaitlyn Hernández RPh - 02/07/2022 10:17 AM EDT PharmAdry called daughter. She said they were able to get Lantus yesterday, got full box of Lantus for$35 (insurance covered it). PharmAdry spoke with daughter, will plan to apply for [employer] PAP [facility] [employer] in March at next PharmD appt so patient doesn't have this issue again with Sanofi. Kaitlyn Hernández PharmD, [facility] Primary Care Clinical Pharmacist [facility] * Telephone Encounter - Kaitlyn Hernández, [facility] - 02/06/2022 4:01 PM EDT Daughter, Farida, [...] me updated on status. Kaitlyn Hernández PharmD, [facility] Primary Care Clinical Pharmacist Lisa Souza [facility] * Telephone Encounter - Kaitlyn Aurora, [facility] - 02/06/2022 2:37 PM EDT PharmD called [...] [employer] - can purchase a vial from [employer] with a GoodRx coupon for ~$60. Patient [...] pharmacy). Patient has issues getting Lantus through [employer]. She has no issues getting Humalog through [employer]. Briefly discussed possibly switching patient from Lantus to Basaglar later this summer so no longer has issues with insulin supply. Daughter thought this would be a good idea so will do paperwork later this summer. PharmD will await daughter's call. Kaitlyn Hernández PharmD, [facility] Primary Care Clinical Pharmacist Lisa Souza [facility] * Telephone Encounter - Jaylene [...] patient insurance. Family could checkwith People to People([phone]) for short term cost assistance. Negrita will also send note to Diana as Sw noted that patient follows with Kaitlyn in regards to hisdiabetes care and see if she has any short term assistance ideas. * Telephone Encounter - Jaylene Henley LPN - 02/06/2022 10:02 AM EDT Patient daughter states that [employer] sends refill form to our office 1 [...] Virgen MD] [facility]erred pharmacy: [facility] [place] [address] - [address] - [phone] Delivery method: MailD Daughter says patient will be out of the medication tonight. The shipment for this medication does not go out until today so she is asking for a pen that he could have. Please return call to daughter, [phone] documented in this encounterUc Health05-20-2022 Instructions* Patient Instructions* Papito Castano V, DO - 02/03/2022 2:02 PM EDT Thank you for choosing the [facility] for your acute care needs. 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 Hours: Sunday through Sunday 7:30 am to 7:00 pm. Sunday and Sunday: 8:00 am to 2:30 pm. documented in this encounterUc Health05-20-2022 History of Present illness Narrative* Papito [...] calf and leg. [facility] hast[facility], compression wrapping. PAST MEDICAL HISTORY [...] mouth every 12 hours. Prescribed by outside supplier engineer Losartan-hydroCHLOROthiazide 100-12.5 mg per tablet Take 1 [...] Continuous Intervention/Comfort measure: Medication documented in this encounterUc Health05-18-2022 Miscellaneous Notes* Telephone Encounter - Tammy Davies LPN - 02/01/2022 10:28 AM EDT Patient daughter Farida calling asking for refill on father Lantus insulin 90 day supply from Patient assistance with [employer]. Yesterday request was not sent correctly. She said gets faxed to [employer]. The Insulin gets mailed to his home. She did not have the fax number, she gave me phone number for [employer] . Father has 4 days Lantus left. Please advise documented in this encounterUc Health05-17-2022 Miscellaneous Notes* Telephone Encounter - Janet [...] patient. Radha Frey Pss documented in this encounterUc Health05-13-2022 History of Present illness Narrative* Saad Park APRN.CBX OPERATOR - 01/27/2022 3:27 PM EDT Images from the original note were not included. 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 This started today. Has tried nothing for relief. Symptoms are worsened by walking. Denies numbness/tingling of right lower extremity. 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 Prescribed by outside supplier engineer insulin glargine (LANTUS SOLOSTAR U-100 INSULIN) 100 [...] plan Saad Park APRN.CAESAR documented in this encounterUc Health04-28-2022 Miscellaneous Notes* Telephone Encounter - Kaitlyn Hernández RPh - 01/12/2022 3:09 PM EDT During PharmD visit for DM today, patient's daughter reported patient needs a refill of colestipol.Refill order pended for PCP signature if appropriate. Pending Prescriptions Disp Refills COLESTIPOL 1 GRAM TABLET 60 tablet 5 Sig: Take 1 tablet by mouth twice daily. JANET: No Kaitlyn Hernández RPh documented in this encounterUc Health04-28-2022 History of Present illness Narrative* Kaitlyn [...] Humalog, and Sanofi through PAPs Diabetes supplies: [employer] System: daughter sets up pill box, 2 [...] mouth every 12 hours. Prescribed by outside supplier engineer flecainide (TAMBOCOR) 150 mg tablet Take 150 [...] verbalized understanding of instructions. Kaitlyn Hernández PharmD, [facility] Primary Care Clinical Pharmacist Lisa Souza [facility] The majority of the pharmacy visit (> 50%) was spent counseling and/or coordinating care for thepatient. interaction: face to face time was 35 minutes. documented in this encounterUc Health04-28-2022 Instructions* Patient Instructions* Kaitlyn Hernández RPh [...] butter DRINK MORE WATER documented in this encounterUc Health04-18-2022 Miscellaneous Notes* Telephone Encounter - Kaitlyn Hernández RPh - 01/02/2022 2:42 PM EDT PharmAdry called [employer] ([phone]) and spoke with a helpful charter representative. She stated patient is due to have a shipment tomorrow. Document Scanner changed the delivery information so this shipment will be shipped to patient's home. PharmD called patient's daughter, Farida, and informed of the above information. Kaitlyn Hernández PharmD, [facility] Primary Care Clinical Pharmacist Lisa Souza [facility] * Telephone Encounter - Denisha Shepard APRN.CNP - 12/30/2021 5:51 PM EDT Is this something that can be done, or does it need to come here? * Telephone Encounter - Nisha Wilson - 12/30/2021 12:05 PM EDT Patient's daughter calling regarding patient's request for medicationi rebelulin lispro (HUMALOG KWIKPEN INSULIN) 100 unit/mL . Daughter, Farida says the medication is shipped by [facility], . Medication is being sent to [facility] instead of patient's home. Daughter is asking for this to be changed to being delivered to patient's home. Please return call to Farida ([phone]) when corrected. documented in this encounterU[facility]04-14-2022 Miscellaneous Notes* Telephone Encounter - Leslie [...] notify patient. Leslie Herbert documented in this encounterUc Health04-14-2022 Miscellaneous Notes* Telephone Encounter - Janet [...] corrected script for Humalog is sent to [facility]. The last script sent was for 16 units and not 26 units. He is going to run out of insulin Please advise insulin lispro (HUMALOG KWIKPEN INSULIN) 100 unit/mL 5 Pen 1 11/03/2021 Sig: Inject 26 Units subcutaneously three times daily before meals. Class: Med Update Route: SUBCUTANEOUS documented in this encounterUc Health03-31-2022 Miscellaneous Notes* Telephone Encounter - Janet [...] BCPS Primary Care Clinical Pharmacist Lisa Souza [facility] documented in this encounterUc Health10-27-2021 History of Present illness Narrative* Malik [...] 13, 2021 10:08 AM documented in this encounterUc Health09-08-2021 History of Present illness Narrative* Brenda [...] 25, 2021 2:53 PM documented in this encounterUc Health05-17-2021 History of Past illness Narrative* Problem Noted Date Resolved Date SOB (shortness of breath) 01/31/20212020 Abnormal EKG 01/31/2021 05/06/2021 Sciatica 06/15/2005 05/06/2021 Paranoid schizophrenia, subc hronic condition with acute exacerbation 05/11/2005 04/23/2017 documented as of this encounter (statuses as of 12/12/2021) [facility] of [facility] illness Narrative* Problem Noted Date Resolved Date SOB (shortness of breath) 01/31/20212020 Abnormal EKG 01/31/2021 05/06/2021 Sciatica 06/15/2005 05/06/2021 Paranoid schizophrenia, subc hronic condition with acute exacerbation 05/11/2005 04/23/2017 documented as of this encounter (statuses as of 12/15/2021) [facility] Narrative* Problem Noted Date Resolved Date SOB (shortness of breath) 01/31/20212020 Abnormal EKG 01/31/2021 05/06/2021 Sciatica 06/15/2005 05/06/2021 Paranoid schizophrenia, subc hronic condition with acute exacerbation 05/11/2005 04/23/2017 documented as of this encounter (statuses as of 12/29/2021) [facility] Narrative* Problem Noted Date Resolved Date SOB (shortness of breath) 01/31/20212020 Abnormal EKG 01/31/2021 05/06/2021 Sciatica 06/15/2005 05/06/2021 Paranoid schizophrenia, subc hronic condition with acute exacerbation 05/11/2005 04/23/2017 documented as of this encounter (statuses as of 01/02/2022) [facility] Narrative* Problem Noted Date Resolved Date SOB (shortness of breath) 01/31/20212020 Abnormal EKG 01/31/2021 05/06/2021 Sciatica 06/15/2005 05/06/2021 Paranoid schizophrenia, subc hronic condition with acute exacerbation 05/11/2005 04/23/2017 documented as of this encounter (statuses as of 01/12/2022) [facility] Narrative* Problem Noted Date Resolved Date SOB (shortness of breath) 01/31/20212020 Abnormal EKG 01/31/2021 05/06/2021 Sciatica 06/15/2005 05/06/2021 Paranoid schizophrenia, subc hronic condition with acute exacerbation 05/11/2005 04/23/2017 documented as of this encounter (statuses as of 01/12/2022) [facility] Narrative* Problem Noted Date Resolved Date SOB (shortness of breath) 01/31/20212020 Abnormal EKG 01/31/2021 05/06/2021 Sciatica 06/15/2005 05/06/2021 Paranoid schizophrenia, subc hronic condition with acute exacerbation 05/11/2005 04/23/2017 documented as of this encounter (statuses as of 01/27/2022) [facility] Narrative* Problem Noted Date Resolved Date SOB (shortness of breath) 01/31/20212020 Abnormal EKG 01/31/2021 05/06/2021 Sciatica 06/15/2005 05/06/2021 Paranoid schizophrenia, subc hronic condition with acute exacerbation 05/11/2005 04/23/2017 documented as of this encounter (statuses as of 01/31/2022) [facility] Narrative* Problem Noted Date Resolved Date SOB (shortness of breath) 01/31/20212020 Abnormal EKG 01/31/2021 05/06/2021 Sciatica 06/15/2005 05/06/2021 Paranoid schizophrenia, subc hronic condition with acute exacerbation 05/11/2005 04/23/2017 documented as of this encounter (statuses as of 02/01/2022) [facility] Narrative* Problem Noted Date Resolved Date SOB (shortness of breath) 01/31/20212020 Abnormal EKG 01/31/2021 05/06/2021 Sciatica 06/15/2005 05/06/2021 Paranoid schizophrenia, subc hronic condition with acute exacerbation 05/11/2005 04/23/2017 documented as of this encounter (statuses as of 02/02/2022) [address]17-2021 History of Past illness Narrative* Problem Noted Date Resolved Date SOB (shortness of breath) 01/31/20212020 Abnormal EKG 01/31/2021 05/06/2021 Sciatica 06/15/2005 05/06/2021 Paranoid schizophrenia, subc hronic condition with acute exacerbation 05/11/2005 04/23/2017 documented as of this encounter (statuses as of 02/03/2022) [facility] Narrative* Problem Noted Date Resolved Date SOB (shortness of breath) 01/31/20212020 Abnormal EKG 01/31/2021 05/06/2021 Sciatica 06/15/2005 05/06/2021 Paranoid schizophrenia, subc hronic condition with acute exacerbation 05/11/2005 04/23/2017 documented as of this encounter (statuses as of 02/07/2022) [facility] Narrative* Problem Noted Date Resolved Date SOB (shortness of breath) 01/31/20212020 Abnormal EKG 01/31/2021 05/06/2021 Sciatica 06/15/2005 05/06/2021 Paranoid schizophrenia, subc hronic condition with acute exacerbation 05/11/2005 04/23/2017 documented as of this encounter (statuses as of 02/09/2022) [address]17-2021 History of Past illness Narrative* Problem [...] of this encounter (statuses as of 03/03/2022) [facility]* Problem [...] of this encounter (statuses as of 03/06/2022) [facility]* Problem [...] of this encounter (statuses as of 03/06/2022) [facility]* Problem [...] of this encounter (statuses as of 03/23/2022) [facility]* Problem [...] of this encounter (statuses as of 03/23/2022) [facility]* Problem [...] of this encounter (statuses as of 04/08/2022) [facility] Problem [...] of this encounter (statuses as of 05/08/2022) [facility]* Problem [...] of this encounter (statuses as of 05/31/2022) [facility]* Problem [...] of this encounter (statuses as of 06/22/2022) [facility] Problem [...] of this encounter (statuses as of 06/22/2022) [facility] Problem [...] of this encounter (statuses as of 08/14/2022) [facility] Problem [...] of this encounter (statuses as of 08/21/2022) [facility]* Problem [...] of this encounter (statuses as of 09/26/2022) [facility] Problem [...] of this encounter (statuses as of 09/29/2022) [facility]* Problem [...] of this encounter (statuses as of 10/04/2022) [facility] Problem [...] of this encounter (statuses as of 10/04/2022) [facility] Problem [...] of this encounter (statuses as of 10/16/2022) [facility] Problem [...] of this encounter (statuses as of 10/16/2022) [facility]* Problem [...] of this encounter (statuses as of 10/26/2022) [address]17-2021 History of Past illness Narrative* Problem [...] of this encounter (statuses as of 11/10/2022) [facility] Problem [...] of this encounter (statuses as of 11/13/2022) [facility] Problem [...] of this encounter (statuses as of 11/22/2022) [facility] Problem [...] of this encounter (statuses as of 11/27/2022) [facility] Problem [...] of this encounter (statuses as of 11/29/2022) [facility] Problem [...] of this encounter (statuses as of 01/19/2023) [facility] Problem [...] of this encounter (statuses as of 02/14/2023) [facility] Problem [...] of this encounter (statuses as of 02/16/2023) [facility] Problem [...] of this encounter (statuses as of 02/17/2023) [facility] Problem [...] of this encounter (statuses as of 02/22/2023) [facility] Problem [...] of this encounter (statuses as of 03/03/2023) [facility] Problem [...] of this encounter (statuses as of 03/06/2023) [facility] Problem [...] of this encounter (statuses as of 03/20/2023) [facility] Problem [...] of this encounter (statuses as of 03/22/2023) [facility] Problem [...] of this encounter (statuses as of 04/13/2023) [facility] Problem [...] of this encounter (statuses as of 04/26/2023) [facility] Problem [...] of this encounter (statuses as of 05/01/2023) [facility] Problem [...] of this encounter (statuses as of 05/02/2023) [facility] Problem [...] of this encounter (statuses as of 05/12/2023) [facility] Problem [...] of this encounter (statuses as of 05/17/2023) [facility]* Problem [...] of this encounter (statuses as of 05/19/2023) [facility]* Problem [...] of this encounter (statuses as of 06/04/2023) [facility] of Present [facility] Narrative* Malik [...] 24, 2021 2:41 PM documented in this encounterUc HealthDischar summary [facility] November 21, 2022 4:33pm Note Date/Time November 21, 2022 4:26 pm [facility] Medical Records Department [address] [place] [address] Discharge Summary 11/21/22 1625 MR#: [id number] Acct: [id number] Name: FAISAL ALARCON Rep #:[id number] : 1945 77 From: Narda Kebede MD PCP: Dr. Mathieu Virgen MD Status:ADM I NO Location: [place] [address]- 1 Providers Date of Admission: 11/21/22 Date [...] patient was placed on a monitored bed [place] was ruled out with serial cardiac enzymes [...] Self Care Charges/Coding Visit Charges Inpatient E&M: 18309 Disch Hosp >30min 11/21/22 1633 <Electronically signed by Narda Kebede MD> Cosigner Signature (if applicable): CC: Dr. Narda Kebede MD; Dr. Mathieu Virgen MD~ Signed [facility] Work Phone: Evaluation note* Diagnosis Type 2 diabetes mellitus without complication, with long-term current use of insulin (HCC) documented in this encounter [facility] note* Diagnosis Type 2 diabetes mellitus without complication, with long-term current use of insulin (HCC) [facility]* Diagnosis Type 2 diabetes mellitus without complication, with long-term current use of insulin (HCC) [facility]* Diagnosis Type 2 diabetes mellitus without complication, with long-term current use of insulin (HCC)- Primary documented in this encounter [facility] note* Diagnosis Diarrhea, unspecified type documented in this encounter [facility] note* Diagnosis Strain of calf muscle, right, initial encounter- Primary [facility] Diagnosis Type 2 diabetes mellitus without complication, with long-term current use of insulin (HCC) [facility] Diagnosis Gastrocnemius tear, right, initial encounter- Primary [facility] Diagnosis Type 2 diabetes mellitus without complication, with long-term current use of insulin (HCC) [facility] Diagnosis Onset Date Resolution Status Dyspnea on minimal exertion acute Paroxysmal atrial fibrillation acute Essential (primary) hypertension chronic Hyperlipidemia chronic Morbid obesity acute SOB (shortness of breath) ac [place] Morbid obesity acute SOB (shortness of breath) ac [place] Essential (primary) hypertension chronic Dyspnea on minimal exertion acute Paroxysmal atrial fibrillation acute Essential (primary) hypertension chronic Hyperlipidemia [facility] Work Phone: Evaluation note* Diagnosis Essential hypertension- Primary Unspecified essential hypertension Pure hypercholesterolemia Paroxysmal atrial fibrillation (HCC) Atrial fibrillation Type 2 diabetes mellitus with microalbuminuria, with long-term current use of insulin (HCC) Chronic anticoagulation Long-term (current) use of anticoagulants Need for hepatitis C screening test Special screening examination for other specified viral diseases [facility]* Diagnosis Diarrhea, unspecified type [facility] Diagnosis Type 2 diabetes mellitus without complication, with long-term current use of insulin (HCC)- Primary Essential hypertension Unspecified essential hypertension [facility] Diagnosis Onset Date Resolution Status Dyspnea on minimal exertion acute Paroxysmal atrial fibrillation acute Essential (primary) hypertension chronic Hyperlipidemia chronic Morbid obesity acute Restrictive airway disease a [facility] Work Phone: Evaluation note* Diagnosis Chest pain, unspecified type- Primary Accidental medication error, initial encounter [facility] Diagnosis Essential hypertension Unspecified essential hypertension [facility] Diagnosis Essential hypertension- Primary Unspecified essential hypertension Paroxysmal atrial fibrillation (HCC) Atrial fibrillation Pure hypercholesterolemia Type 2 diabetes mellitus with microalbuminuria, with long-term current use of insulin (HCC) Chronic anticoagulation Long-term (current) use of anticoagulants Monocytosis Monocytosis (symptomatic) Need for influenza vaccination Need for prophylactic vaccination and inoculation against influenza [facility] Diagnosis Type 2 diabetes mellitus without complication, with long-term current use of insulin (HCC)- Primary [facility]* Diagnosis Onset Date Resolution Status Dyspnea on minimal exertion acute Paroxysmal atrial fibrillation acute Essential (primary) hypertension chronic Hyperlipidemia chronic [facility] Work Phone: Evaluation note* Diagnosis Pure hypercholesterolemia [facility]* Diagnosis Type 2 diabetes mellitus without complication, with long-term current use of insulin ([facility]* Diagnosis Onset Date Resolution Status Essential (primary) hypertension chronic Nonobstructive atherosclerosis of coronary artery chronic Paroxysmal atrial fibrillation chronic Chest pain acute Dyspnea on minimal exertion acute History of atrial fibrillation acute [facility] Work Phone: Evaluation note* Diagnosis Type 2 diabetes mellitus with microalbuminuria, with long-term current use of insulin (HCC)- Primary [facility]* Diagnosis Chest pain, unspecified type- Primary Leukocytosis, unspecified type Type 2 diabetes mellitus with microalbuminuria, with long-term current use of insulin ([facility]) Schizophrenia, 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, chronic condition Paroxysmal atrial fibrillation (HCC) Atrial fibrillation Essential hypertension Unspecified essential hypertension Pure hypercholesterolemia [facility]* Diagnosis Skin mass- Primary Localized superficial swelling, mass, or lump [facility]* Diagnosis Lesion of subcutaneous tissue- Primary Unspecified disorder of skin and subcutaneous tissue [facility]* Diagnosis Acute left ankle pain- Primary [facility]* Diagnosis Onset Date Resolution Status History of atrial fibrillation acute Chest pain resolved Dyspnea on minimal exertion resolved Shortness of breath on exertion acute [facility] Work Phone: Evaluation note* Diagnosis Nausea- Primary Nausea alone Hypoglycemia Hypoglycemia, unspecified Type 2 diabetes mellitus with microalbuminuria, with long-term current use of insulin ([facility]) Leukocytosis, unspecified type Abnormal serum level of lipase Other nonspecific abnormal serum enzyme levels Benign prostatic hyperplasia with lower urinary tract symptoms, symptom details unspecified Urinary retention Retention of urine, unspecified [facility]* Diagnosis Acute constipation- Primary Unspecified constipation [facility]* Diagnosis OPENED IN ERROR- Primary To allow closing an encounter opened in error (used in SmartSet) [facility]* Diagnosis Onset Date Resolution Status Shortness of breath on exertion [facility] Work Phone: Evaluation note* Diagnosis Inflamed acrochordon- Primary Unspecified hypertrophic and atrophic condition of skin Seborrheic keratoses, inflamed Inflamed seborrheic keratosis [facility]* Diagnosis Encounter for post surgical wound check- Primary [facility]* Diagnosis Near syncope- Primary Syncope and collapse Fall, initial encounter Acute upper respiratory infection Acute upper respiratory infections of unspecified site Morbid obesity (HCC) Morbid obesity [facility]* Diagnosis Essential hypertension- Primary Unspecified essential [...] not elsewhere classified [facility]* Diagnosis Diarrhea, unspecified type [facility]* Diagnosis Viral URI with cough- Primary Acute upper respiratory infections of unspecified site Suspected COVID-19 virus infection Bronchitis Bronchitis, not specified as acute or chronic documented in this encounter [facility]* Diagnosis Nausea Nausea alone documented [facility] this encounter [facility] noteNo assessment information [facility] Work Phone: Evaluation note* Diagnosis Acute hip pain, right- Primary [facility]* Diagnosis Pure hypercholesterolemia [facility]* Diagnosis Essential hypertension Unspecified essential hypertension [facility]* Diagnosis Type 2 diabetes mellitus without complication, with long-term current use of insulin (HCC)- Primary [facility]* Diagnosis Paroxysmal atrial fibrillation (HCC)- Primary [...] of insulin (HCC) [facility]* Diagnosis Paroxysmal atrial fibrillation (HCC)- Primary Atrial fibrillation Restrictive lung disease Other diseases of lung, not elsewhere classified Pain of right hip Psoriatic arthritis (HCC) Psoriatic arthropathy [facility]* Diagnosis Viral URI with cough Acute upper respiratory infections of unspecified site Bronchitis Bronchitis, not specified as acute or chronic [facility]* Diagnosis Nausea Nausea alone [facility]* Diagnosis SOB (shortness of breath)- Primary Shortness of breath Bilateral leg edema Edema Weight increase Abnormal weight gain [facility]* Diagnosis 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 Venous incompetence Unspecified venous (peripheral) insufficiency Bilateral leg edema Edema SOB (shortness of breath) Shortness of breath Weight gain Abnormal weight gain CJ (obstructive sleep apnea) Obstructive sleep apnea (adult) (pediatric) Hypersomnolence Hypersomnia, unspecified Cushingoid facies Other ill-defined conditions [facility]* Diagnosis Venous incompetence- Primary Unspecified venous (peripheral) insufficiency Lymphedema of left leg Other lymphedema Varicose veins of both legs with edema [facility]* Diagnosis Abrasion of left hand, initial encounter- Primary [facility]* Diagnosis Encounter for medical assessment- Primary [facility]* Diagnosis Essential hypertension Unspecified essential hypertension [facility]* Diagnosis SOB (shortness of breath) Shortness of breath Bilateral leg edema Edema Weight increase Abnormal weight gain [facility]* Diagnosis Generalized weakness- Primary Other malaise and fatigue documented in [facility]* Diagnosis Sinobronchitis Unspecified sinusitis (chronic) [facility]* Diagnosis Viral URI with cough Acute upper respiratory infections of unspecified site Bronchitis Bronchitis, not specified as acute or chronic documented in this encounter [facility]* Diagnosis Acute hip pain, right [facility]* Diagnosis Acute left ankle pain documented in this encounter [facility] note* Diagnosis Diarrhea, unspecified type [facility] this [facility]* Diagnosis Rib pain Chest pain, unspecified documented in this encounter [facility] note* Diagnosis SOB (shortness of breath) Shortness of breath documented in this encounter [facility] note* Diagnosis Essential hypertension- Primary Unspecified essential [...] (HCC) Psoriatic arthropathy documented in this encounter [facility] note* Diagnosis Snoring- Primary Other dyspnea and respiratory abnormality Witnessed episode of apnea Nocturnal leg movements Abnormal involuntary movements Frequent nocturnal awakening Other sleep disturbances Nocturia documented in this encounter [facility] note* Diagnosis Type 2 diabetes mellitus with [...] Other B-complex deficiencies documented in this encounter [facility] note* Diagnosis Nausea Nausea alone documented in this encounter [facility] note* Diagnosis Chronic respiratory failure with hypoxia (HCC)- Primary Chronic respiratory failure documented in this encounter [facility] note* Diagnosis Systolic congestive heart failure, unspecified HF chronicity (HCC) documented in this encounter [facility] note* Diagnosis Systolic congestive heart failure, unspecified HF chronicity (HCC) documented in this encounter [facility] note* Diagnosis Pure hypercholesterolemia documented in this encounter [facility] note* Diagnosis Dizziness- Primary Dizziness and giddiness Chest pain, unspecified type documented in this encounter [facility] note* Diagnosis Type 2 diabetes mellitus without complication, with long-term current use of insulin (HCC) documented in this encounter [facility] note* Diagnosis Type 2 diabetes mellitus with microalbuminuria ([facility])- Primary documented in this encounter [facility] note* Diagnosis Essential hypertension- Primary Unspecified essential hypertension Paroxysmal atrial fibrillation (HCC) Atrial fibrillation Dizziness Dizziness and giddiness Systolic congestive heart failure, unspecified HF chronicity (HCC) documented in this encounter [facility] note* Diagnosis 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 Essential hypertension Unspecified essential hypertension documented in this encounter [facility] note* Diagnosis Essential hypertension Unspecified essential hypertension documented in this encounter [facility] note* Diagnosis 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 Nonobstructive atherosclerosis of coronary artery Pure hypercholesterolemia documented in this encounter [facility] note* Diagnosis Acute diastolic CHF (congestive heart [...] Unspecified essential hypertension documented in this encounter [facility] note* Diagnosis 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, macular edema presence unspecified, unspecified retinopathy severity (HCC) documented in this encounter [facility] note* Diagnosis Contusion of left foot, subsequent encounter- Primary Foot pain, left Pain in limb Contusion of left foot, subsequent encounter Foot pain, left Pain in limb documented in this encounter [facility] note* Diagnosis Contusion of left foot, subsequent encounter Foot pain, left Pain in limb documented in this encounter [facility] note* Diagnosis Closed fracture of foot, unspecified laterality, initial encounter- Primary documented in this encounter [facility] note* Diagnosis Closed fracture of foot, unspecified laterality, initial encounter documented in this encounter [facility] note* Diagnosis Closed fracture of foot, unspecified laterality, initial encounter documented in this encounter [facility] note* Diagnosis Essential hypertension- Primary Unspecified essential hypertension Nausea Nausea alone 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 If you have any further concerns please return the [facility] Phone: Reason for referral (narrative)* Diagnostic Procedure Only (Urgent) - Closed Specialty Diagnoses / Procedures Referred By Shara t Referred To Contact XR IMAGING Diagnoses Acute left ankle pain Procedures XR ANKLE GENERAL 3V AP/LAT/OBL LEFT RADEX ANKLE COMPLETE MINIMUM 3 VIEWS Denisha Shepard, NEGIN [address] [place] [address] Xr Imaging Referral ID Status Reason Start Date Expiration Date V isits Requested Visits Authorized [id number] Closed Auto-Generate d Referral 02/16/2023 03/17/2024 1 1 [facility] for referral (narrative)* Outpatient Procedure (Routine) - Authorized Specialty Diagnoses / Procedures Referred By Contac t Referred To Contact [facility] Diagnoses Near syncope Fall, initial encounter Procedures ECG COMPLETE ECG ROUTINE ECG W/LEAST 12 LDS W/I&R Vikas Travis PA-C [address] [place] [address] [facility] [address] [address] Referral ID Status Reason Start Date Expiration Date Visits Requested Visits Authorized [id number] Authorized Auto-Generat ed Referral 05/18/2023 05/17/2024 1 1 [facility] for referral (narrative)* Diagnostic Procedure Only (Routine) - Closed Specialty Diagnoses / Procedures Referred By Contac t Referred To Contact XR IMAGING Diagnoses Acute hip pain, right Procedures XR HIP GENERAL 3V PELV/AP/LAT RIGHT RADEX HIP UNILATERAL WITH PELVIS 2-3 VIEWS Pio Nicole MD [address] [place] [address] [place] [address] Referral ID Status Reason Start Date Expiration Date V isits Requested Visits Authorized [id number] Closed Auto-Generate d Referral 07/23/2023 08/21/2024 1 1 [facility] for referral (narrative)* Outpatient Procedure (Routine) - Pending Review Specialty Diagnoses / Procedures Referred By Contac t Referred To Contact [facility] VASCULAR DELTA Diagnoses SOB (shortness of breath) Bilateral leg edema Weight increase Procedures ECG COMPLETE ECG ROUTINE ECG W/LEAST 12 LDS W/I&R Vikas Travis PA-C [address] [place] [address] [facility] [place] [address] [place] [address] Referral ID Status Reason Start Date Expiration Date Visits Requested Visits Authorized [id number] Pending Review Auto-Generat ed Referral 02/04/2024 02/03/2025 1 1 [facility] for referral (narrative)* Outpatient Procedure (Routine) - Pending Review Specialty Diagnoses / Procedures Referred By Shara t Referred To Contact [facility] VASCULAR DELTA Diagnoses Varicose veins of both lower extremities with inflammation Procedures US VENOUS INCOMPETENCY KARON VAS LAB DUP-SCAN XTR VEINS COMPLETE BILATERAL STUDY Vikas Travis PA-C [address] [place] [address] [facility] [address] [place] [address] Referral ID Status Reason Start Date Expiration Date Visits Requested Visits Authorized [id number] Pending Review Auto-Generat ed Referral 02/28/2024 02/27/2025 1 1 * Consult, Test, Treat (Routine) - Authorized Specialty Diagnoses / Procedures Referred By Shara russo Referred To Contact Diagnoses CJ (obstructive sleep apnea) Hypersomnolence Procedures CONSULT TO SLEEP MEDICINE - ADULT OFFICE/OUTPATIENT [facility] 60 MINUTES Vikas Travis PA-C [address] [place] [address] Referral ID Status Reason Start Date Expiration Date Visits Requested Visits Authorized [id number] Authorized PCP Requested Referral 02/28/2024 02/27/2025 1 1 * Outpatient Procedure (Routine) - Authorized Specialty Diagnoses / Procedures Referred By Contac t Referred To Contact [facility]ASCULAR DELTA Diagnoses Bilateral leg edema SOB (shortness of breath) Weight gain Procedures ECHO ECHO TTHRC R-T 2D W/WOM-MODE COMPL SPEC&COLR D Vikas Travis PA-C [address] [place] [address] [facility] [address] [place] [address] Referral ID Status Reason Start Date Expiration Date Visits Requested Visits Authorized [id number] Authorized Auto-Generat ed Referral 02/28/2024 02/27/2025 1 1 [facility] for referral (narrative)* Diagnostic Procedure Only (Routine) - Closed Specialty Diagnoses / Procedures Referred By Contac t Referred To Contact XR IMAGING Diagnoses Acute hip pain, right Procedures XR HIP GENERAL 3V PELV/AP/LAT RIGHT RADEX HIP UNILATERAL WITH PELVIS 2-3 VIEWS Pio Nicole MD [address] [place] [address] [place] [address] Referral ID Status Reason Start Date Expiration Date V isits Requested Visits Authorized [id number] Closed Auto-Generate d Referral 07/23/2023 08/21/2024 1 1 [facility] for referral (narrative)* Diagnostic Procedure Only (Urgent) - Closed Specialty Diagnoses / Procedures Referred By Contac t Referred To Contact XR IMAGING Diagnoses Acute left ankle pain Procedures XR ANKLE GENERAL 3V AP/LAT/OBL LEFT RADEX ANKLE COMPLETE MINIMUM 3 VIEWS Denisha Shepard APRN.CNP [address] [place] [address] [place] [address] Referral ID Status Reason Start Date Expiration Date V isits Requested Visits Authorized [id number] Closed Auto-Generate d Referral 02/16/2023 03/17/2024 1 1 [facility] for referral (narrative)* Diagnostic Procedure Only (Routine) - Closed Specialty Diagnoses / Procedures Referred By Contac t Referred To Contact XR IMAGING Diagnoses Rib pain Procedures XR RIBS/CHEST 3V AP RIB/OBLS/CXR RT X-RAY RIBS, CHEST 3+ VW Mathieu Virgen MD [address] [place] [address] [place] [address] Referral ID Status Reason Start Date Expiration Date V isits Requested Visits Authorized [id number] Closed Auto-Generate d Referral 05/25/2021 09/16/2021 99 99 [facility] for referral (narrative)No reason for referral information [facility] Work Phone: Reason for visit Narrative* Diagnostic Procedure Only (Routine) - Closed Specialty Diagnoses / Procedures Referred By Contac t Referred To Contact XR IMAGING Diagnoses Acute hip pain, right Procedures XR HIP GENERAL 3V PELV/AP/LAT RIGHT RADEX HIP UNILATERAL WITH PELVIS 2-3 VIEWS Pio Nicole MD [address] [place] [address] [place] [address] Referral ID Status Reason Start Date Expiration Date V isits Requested Visits Authorized [id number] Closed Auto-Generate d Referral 07/23/2023 08/21/2024 1 1 [facility] for visit Narrative* Diagnostic Procedure Only (Urgent) - Closed Specialty Diagnoses / Procedures Referred By Contac t Referred To Contact XR IMAGING Diagnoses Acute left ankle pain Procedures XR ANKLE GENERAL 3V AP/LAT/OBL LEFT RADEX ANKLE COMPLETE MINIMUM 3 VIEWS Denisha Shepard APRN.CNP [address] [place] [id number] [place] [address] Referral ID Status Reason Start Date Expiration Date V isits Requested Visits Authorized [id number] Closed Auto-Generate d Referral 02/16/2023 03/17/2024 1 1 [facility] for visit Narrative* Diagnostic Procedure Only (Routine) - Closed Specialty Diagnoses / Procedures Referred By Contac t Referred To Contact XR IMAGING Diagnoses Rib pain Procedures XR RIBS/CHEST 3V AP RIB/OBLS/CXR RT X-RAY RIBS, CHEST 3+ VW Mathieu Virgen MD [address] [place] [address] [place] [address] Referral ID Status Reason Start Date Expiration Date V isits Requested Visits Authorized [id number] Closed Auto-Generate d Referral 05/25/2021 09/16/2021 99 99 [facility] for visit Narrative* Diagnostic Procedure Only (Urgent) - Closed Specialty Diagnoses / Procedures Referred By Contac t Referred To Contact XR IMAGING Diagnoses Contusion of left foot, subsequent encounter Foot pain, left Procedures XR FOOT GENERAL 3V AP/LAT/OBL LEFT RADEX FOOT COMPLETE MINIMUM 3 VIEWS Mathieu Virgen MD [address] [place] [address] Phone: tel: fax: [place] [address] Referral ID Status Reason Start Date Expiration Date V isits Requested Visits Authorized [id number] Closed Auto-Generate d Referral 01/12/2025 02/11/2026 1 1 [facility] N[facility]* Diagnostic Procedure Only (Routine) - Closed Specialty Diagnoses / Procedures Referred By Contac t Referred To Contact XR IMAGING Diagnoses Closed fracture of foot, unspecified laterality, initial encounter Procedures XR FOOT GENERAL 3V AP/LAT/OBL LEFT RADEX FOOT COMPLETE MINIMUM 3 VIEWS Jamal Mace [address] [place] [address] Phone: tel: fax: [place] [address] Referral ID Status Reason Start Date Expiration Date V isits Requested Visits Authorized [id number] Closed Auto-Generate d Referral 01/22/2025 02/21/2026 1 1 [facility] Advance Directives No Advanced Directives Records FoundDocuments on File Type Date Recorded 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 Advance Directive(s) Advance Directive(s) 03/14/2021 10:51 AM Documents on File Type Date Recorded 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 Advance Directive(s) Advance Directive(s) 03/14/2021 10:51 AM Advance Directive Response Recorded Date/ Time Living Will No October 26 12:42pm Power of Veterinary Surgeon Yes October 26, 2021 12:42pm Advance Directive Response Recorded Date/ Time Name of Medical Power of Veterinary Surgeon farida harrisr April 08, 2022 4:03pm Living Will Yes April 08, 2022 4:03pm Power of Veterinary Surgeon Yes April 08 4:03pm Documents on File Type Date Recorded 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 Advance Directive(s) 03/14/2021 10:51 AM Advance Directive Response Recorded Date/ Time Living Will No November 22nd, 2 022 9:00am Power of Veterinary Surgeon No August 08, 2022 9:00am Advance Directive Response Recorded Date/ Time Name of Medical Power of Veterinary Surgeon Farida Harrisr November 21, 2022 8:28am Living Will Yes November 21, 2022 8:28am Power of Veterinary Surgeon Yes November 21 8:28am Documents on File Type Date Recorded 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 Advance Directive(s) 03/14/2021 10:51 AM Advance Directive Response Recorded Date/ Time Name of Medical Power of Veterinary Surgeon Farida Harrisr November 21, 2022 9:28am Name of Medical Power of Veterinary Surgeon FÉLIX February 24, 2023 9:59pm Name of Medical Power of Veterinary Surgeon Farida Harrisr March 01, 2023 9:06pm Living Will Yes March 01, 2023 9:06pm Power of Veterinary Surgeon Yes March 01 9:06pm Advance Directive Response Recorded Date/ Time Name of Medical Power of Veterinary Surgeon FÉLIX February 24, 2023 9:59pm Name of Medical Power of Veterinary Surgeon Farida Harrisr March 01, 2023 9:06pm Name of Medical Power of Veterinary Surgeon Farida Harrisr March 31, 2023 12:26am Living Will Yes March 31, 2023 12:26am Power of Veterinary Surgeon Yes March 31 12:26am Advance Directive Response Recorded Date/ Time Living Will Yes March 31, 2023 12:26am Power of Veterinary Surgeon Yes March 31 12:26am Name of Medical Power of Veterinary Surgeon Farida Harrisr March 31, 2023 12:26am Advance Directive Response Recorded Date/ Time Living Will Yes September 22 10:15am Power of Veterinary Surgeon Yes September 22 2 024 10:15am Name of Medical Power of Veterinary Surgeon Farida September 22, 2023 10:15am Advance Directive Response Recorded Date/ Time Living Will Yes June 24 1:50am Do you have a Healthcare Pow er of Veterinary Surgeon? Yes June 24, 2024 1:50am Living Will No September 20 4:50pm Do you have a Healthcare Pow er of Veterinary Surgeon? Yes September 20, 2024 4:50pm Name of Medical Power of Veterinary Surgeon FARIDA BECK September 20, 2024 4:50pm Living Will Yes November 03 025 1:12am Do you have a Healthcare Pow er of Veterinary Surgeon? Yes November 03, 2024 1:12am Name of Medical Power of Veterinary Surgeon daughter November 03, 2024 1:12am Living Will Yes September 01 024 5:43am Do you have a Healthcare Pow er of Veterinary Surgeon? Yes September 01, 2024 5:43am Name of Medical Power of Veterinary Surgeon vanessa Davalos er September 01, 2024 5:43am Advance Directive Response Recorded Date/ Time Living Will Yes September 22 11:15am Do you have a Healthcare Power of Veterinary Surgeon? Yes September 22, 2023 11:15am Living Will Yes November 03 1:12am Do you have a Healthcare Power of Veterinary Surgeon? Yes November 03, 2024 1:12am Name of Medical Power of Veterinary Surgeon daughter November 03, 2024 1:12am Do you have a Healthcare Power of Veterinary Surgeon? Yes January 19, 2025 11:33pm Advance Directive Response Recorded Date/ Time Living Will Yes September 22 11:15am Do you have a Healthcare Power of Veterinary Surgeon? Yes September 22, 2023 11:15am Do you have a Healthcare Power of Veterinary Surgeon? Yes January 19, 2025 11:33pm Advance Directive Response Recorded Date/ Time Do you have a Healthcare Power of Veterinary Surgeon? Yes January 19, 2025 11:33pm Advance Directive Response Recorded Date/ Time Do you have a Healthcare Power of Veterinary Surgeon? Yes January 19, 2025 11:33pm Do you have a Healthcare Power of Veterinary Surgeon? Yes April 29, 2025 3:41pm Advance Directive Response Recorded Date/ Time Do you have a Healthcare Power of Veterinary Surgeon? Yes January 19, 2025 11:33pm Do you have a Healthcare Power of Veterinary Surgeon? Yes April 29, 2025 9:43pm Reason for Referral Specialty Diagnoses / Procedures Referred By Shara russo Referred To Contact Orthopedics Diagnoses Strain of calf muscle, right, initial encounter Procedures CONSULT TO ORTHOPAEDICS OFFICE/OUTPATIENT [facility] 60-74 MINUTES Saad Park APRN.CBX OPERATOR [address] [place] [address] Referral ID Status Reason Start Date Expiration Date Visits Requested Visits Authorized [id number] Pending Review PCP Requested Referral 01/27/2022 01/27/2023 1 1 Specialty Diagnoses / Procedures Referred By Contac t Referred To Contact [facility] Diagnoses Gastrocnemius tear, right, initial encounter Procedures CONSULT TO PHYSICAL THERAPY PHYSICAL THERAPY EVALUATION HIGH COMPLEX 45 MINS Papito Castano V, DO [address] [place] [address] [facility] [place] [address] [place] [address] Referral ID Status Reason Start Date Expiration Date Visits Requested Visits Authorized [id number] Pending Review Auto-Generat ed Referral 02/03/2022 02/03/2023 1 1 Specialty Diagnoses / Procedures Referred By Shara t Referred To Contact General Surgery Diagnoses Skin mass Procedures CONSULT TO GENERAL SURGERY OFFICE/OUTPATIENT [facility] 60-[place] [address] [place] [address] Referral ID Status Reason Start Date Expiration Date Visits Requested Visits Authorized [id number] Pending Review PCP Requested Referral 01/19/2023 01/19/2024 1 1 Specialty Diagnoses / Procedures Referred By Shara t Referred To Contact Urology Diagnoses Benign prostatic hyperplasia with lower urinary tract symptoms, symptom details unspecified Urinary retention Procedures CONSULT TO UROLOGY Mathieu Virgen MD [address] [place] [address] Referral ID Status Reason Start Date Expiration Date Visits Requested Visits Authorized [id number] Ref Not Required PCP Requested Referral 03/02/2023 03/01/2024 1 1 Specialty Diagnoses / Procedures Referred By Shara t Referred To Contact Ophthalmology Diagnoses Type 2 diabetes mellitus with microalbuminuria, with long-term current use of insulin (HCC) Procedures CONSULT TO OPHTHALMOLOGY OFFICE/OUTPATIENT [facility] 60-[place] [address] [place] [address] Referral ID Status Reason Start Date Expiration Date Visits Requested Visits Authorized [id number] Pending Review PCP Requested Referral 06/06/2023 06/05/2024 1 1 Specialty Diagnoses / Procedures Referred By Contluz maria t Referred To Contact [facility] Diagnoses Venous incompetence Lymphedema of left leg Varicose veins of both legs with edema Procedures CONSULT TO LYMPHEDEMA THERAPY OFFICE/OUTPATIENT [facility] 60 MINUTES Vikas Travis PA-C [address] [place] [address] [facility] [place] [address] [place] [address] Referral ID Status Reason Start Date Expiration Date Visits Requested Visits Authorized [id number] Authorized Auto-Generat ed Referral 03/21/2024 03/21/2025 1 [...] Pap compliance January 21, 2025 2:31pm S/P [facility] 01/20January 26, 2025 9:38a m R06.02 - [...] Pap compliance January 21, 2025 2:31pm S/P [facility] 01/20January 26, 2025 9:38a m R06.02 - [...] Syncope April 30, 2025 10 :34am S/P [facility] 04/30May 04, 2025 9: 43am Family History [...] this informatio n is protected by the [facility] Confidentiality of Alcohol and Drug Abuse Patient Records regulations: The Federal rules restrict any use of the information to criminally investigate or prosecute any alcohol or drug abuse patient.[facility] Health[facility] the event this information is protected by the Federal Confidentiality of Alcohol and Drug Abuse Patient Records regulations: The Federal rules restrict any use of the information to criminally investigate or prosecute any alcohol or drug abuse patient.[facility] Health[facility] the event this information is protected by the Federal Confidentiality of Alcohol and Drug Abuse Patient Records regulations: The Federal rules restrict any use of the information to criminally investigate or prosecute any alcohol or drug abuse patient.[facility] the event this information is protected by the Federal Confidentiality of Alcohol and Drug Abuse Patient Records regulations: The Federal rules restrict any use of the information to criminally investigate or prosecute any alcohol or drug abuse patient.[facility] Health[facility] the event this information is protected by the Federal Confidentiality of Alcohol and Drug Abuse Patient Records regulations: The Federal rules restrict any use of the information to criminally investigate or prosecute any alcohol or drug abuse patient.[facility] the event this information is protected by the Federal Confidentiality of Alcohol and Drug Abuse Patient Records regulations: The Federal rules restrict any use of the information to criminally investigate or prosecute any alcohol or drug abuse patient.[facility] HealthIn the event this information is protected by the Federal Confidentiality of Alcohol and Drug Abuse Patient Records regulations: The Federal rules restrict any use of the information to criminally investigate or prosecute any alcohol or drug abuse patient.[facility] HealthIn the event this information is protected by the Federal Confidentiality of Alcohol and Drug Abuse Patient Records regulations: The Federal rules restrict any use of the information to criminally investigate or prosecute any alcohol or drug abuse patient.[facility] HealthIn the event this information is protected by the Federal Confidentiality of Alcohol and Drug Abuse Patient Records regulations: The Federal rules restrict any use of the information to criminally investigate or prosecute any alcohol or drug abuse patient.[facility] HealthIn the event this information is protected by the Federal Confidentiality of Alcohol and Drug Abuse Patient Records regulations: The Federal rules restrict any use of the information to criminally investigate or prosecute any alcohol or drug abuse patient.[facility] HealthIn the event this information is protected by the Federal Confidentiality of Alcohol and Drug Abuse Patient Records regulations: The Federal rules restrict any use of the information to criminally investigate or prosecute any alcohol or drug abuse patient.[facility] HealthIn the event this information is protected by the Federal Confidentiality of Alcohol and Drug Abuse Patient Records regulations: The Federal rules restrict any use of the information to criminally investigate or prosecute any alcohol or drug abuse patient.[facility] HealthIn the event this information is protected by the Federal Confidentiality of Alcohol and Drug Abuse Patient Records regulations: The Federal rules restrict any use of the information to criminally investigate or prosecute any alcohol or drug abuse patient.[facility] HealthIn the event this information is protected by the Federal Confidentiality of Alcohol and Drug Abuse Patient Records regulations: The Federal rules restrict any use of the information to criminally investigate or prosecute any alcohol or drug abuse patient.[facility] HealthIn the event this information is protected by the Federal Confidentiality of Alcohol and Drug Abuse Patient Records regulations: The Federal rules restrict any use of the information to criminally investigate or prosecute any alcohol or drug abuse patient.[facility] HealthIn the event this information is protected by the Federal Confidentiality of Alcohol and Drug Abuse Patient Records regulations: The Federal rules restrict any use of the information to criminally investigate or prosecute any alcohol or drug abuse patient.[facility] HealthIn the event this information is protected by the Federal Confidentiality of Alcohol and Drug Abuse Patient Records regulations: The Federal rules restrict any use of the information to criminally investigate or prosecute any alcohol or drug abuse patient.[facility] HealthIn the event this information is protected by the Federal Confidentiality of Alcohol and Drug Abuse Patient Records regulations: The Federal rules restrict any use of the information to criminally investigate or prosecute any alcohol or drug abuse patient.[facility]In the event this information is protected by the Federal Confidentiality of Alcohol and Drug Abuse Patient Records regulations: The Federal rules restrict any use of the information to criminally investigate or prosecute any alcohol or drug abuse patient.[facility] HealthIn the event this information is protected by the Federal Confidentiality of Alcohol and Drug Abuse Patient Records regulations: The Federal rules restrict any use of the information to criminally investigate or prosecute any alcohol or drug abuse patient.[facility]In the event this information is protected by the Federal Confidentiality of Alcohol and Drug Abuse Patient Records regulations: The Federal rules restrict any use of the information to criminally investigate or prosecute any alcohol or drug abuse patient.[facility] HealthIn the event this information is protected by the Federal Confidentiality of Alcohol and Drug Abuse Patient Records regulations: The Federal rules restrict any use of the information to criminally investigate or prosecute any alcohol or drug abuse patient.[facility]In the event this information is protected by the Federal Confidentiality of Alcohol and Drug Abuse Patient Records regulations: The Federal rules restrict any use of the information to criminally investigate or prosecute any alcohol or drug abuse patient.[facility] HealthIn the event this information is protected by the Federal Confidentiality of Alcohol and Drug Abuse Patient Records regulations: The Federal rules restrict any use of the information to criminally investigate or prosecute any alcohol or drug abuse patient.[facility]In the event this information is protected by the Federal Confidentiality of Alcohol and Drug Abuse Patient Records regulations: The Federal rules restrict any use of the information to criminally investigate or prosecute any alcohol or drug abuse patient.[facility] HealthIn the event this information is protected by the Federal Confidentiality of Alcohol and Drug Abuse Patient Records regulations: The Federal rules restrict any use of the information to criminally investigate or prosecute any alcohol or drug abuse patient.[facility] HealthIn the event this information is protected by the Federal Confidentiality of Alcohol and Drug Abuse Patient Records regulations: The Federal rules restrict any use of the information to criminally investigate or prosecute any alcohol or drug abuse patient.[facility]In the event this information is protected by the Federal Confidentiality of Alcohol and Drug Abuse Patient Records regulations: The Federal rules restrict any use of the information to criminally investigate or prosecute any alcohol or drug abuse patient.[facility]In the event this information is protected by the Federal Confidentiality of Alcohol and Drug Abuse Patient Records regulations: The Federal rules restrict any use of the information to criminally investigate or prosecute any alcohol or drug abuse patient.[facility]In the event this information is protected by the Federal Confidentiality of Alcohol and Drug Abuse Patient Records regulations: The Federal rules restrict any use of the information to criminally investigate or prosecute any alcohol or drug abuse patient.[facility]In the event this information is protected by the Federal Confidentiality of Alcohol and Drug Abuse Patient Records regulations: The Federal rules restrict any use of the information to criminally investigate or prosecute any alcohol or drug abuse patient.[facility]In the event this information is protected by the Federal Confidentiality of Alcohol and Drug Abuse Patient Records regulations: The Federal rules restrict any use of the information to criminally investigate or prosecute any alcohol or drug abuse patient.[facility]In the event this information is protected by the Federal Confidentiality of Alcohol and Drug Abuse Patient Records regulations: The Federal rules restrict any use of the information to criminally investigate or prosecute any alcohol or drug abuse patient.[facility]In the event this information is protected by the Federal Confidentiality of Alcohol and Drug Abuse Patient Records regulations: The Federal rules restrict any use of the information to criminally investigate or prosecute any alcohol or drug abuse patient.[facility]In the event this information is protected by the Federal Confidentiality of Alcohol and Drug Abuse Patient Records regulations: The Federal rules restrict any use of the information to criminally investigate or prosecute any alcohol or drug abuse patient.[facility]In the event this information is protected by the Federal Confidentiality of Alcohol and Drug Abuse Patient Records regulations: The Federal rules restrict any use of the information to criminally investigate or prosecute any alcohol or drug abuse patient.[facility]In the event this information is protected by the Federal Confidentiality of Alcohol and Drug Abuse Patient Records regulations: The Federal rules restrict any use of the information to criminally investigate or prosecute any alcohol or drug abuse patient.[facility]In the event this information is protected by the Federal Confidentiality of Alcohol and Drug Abuse Patient Records regulations: The Federal rules restrict any use of the information to criminally investigate or prosecute any alcohol or drug abuse patient.[facility]In the event this information is protected by the Federal Confidentiality of Alcohol and Drug Abuse Patient Records regulations: The Federal rules restrict any use of the information to criminally investigate or prosecute any alcohol or drug abuse patient.[facility]In the event this information is protected by the Federal Confidentiality of Alcohol and Drug Abuse Patient Records regulations: The Federal rules restrict any use of the information to criminally investigate or prosecute any alcohol or drug abuse patient.[facility]In the event this information is protected by the Federal Confidentiality of Alcohol and Drug Abuse Patient Records regulations: The Federal rules restrict any use of the information to criminally investigate or prosecute any alcohol or drug abuse patient.[facility]In the event this information is protected by the Federal Confidentiality of Alcohol and Drug Abuse Patient Records regulations: The Federal rules restrict any use of the information to criminally investigate or prosecute any alcohol or drug abuse patient.[facility]In the event this information is protected by the Federal Confidentiality of Alcohol and Drug Abuse Patient Records regulations: The Federal rules restrict any use of the information to criminally investigate or prosecute any alcohol or drug abuse patient.[facility]In the event this information is protected by the Federal Confidentiality of Alcohol and Drug Abuse Patient Records regulations: The Federal rules restrict any use of the information to criminally investigate or prosecute any alcohol or drug abuse patient.[facility]In the event this information is protected by the Federal Confidentiality of Alcohol and Drug Abuse Patient Records regulations: The Federal rules restrict any use of the information to criminally investigate or prosecute any alcohol or drug abuse patient.[facility]In the event this information is protected by the Federal Confidentiality of Alcohol and Drug Abuse Patient Records regulations: The Federal rules restrict any use of the information to criminally investigate or prosecute any alcohol or drug abuse patient.[facility]In the event this information is protected by the Federal Confidentiality of Alcohol and Drug Abuse Patient Records regulations: The Federal rules restrict any use of the information to criminally investigate or prosecute any alcohol or drug abuse patient.[facility]In the event this information is protected by the Federal Confidentiality of Alcohol and Drug Abuse Patient Records regulations: The Federal rules restrict any use of the information to criminally investigate or prosecute any alcohol or drug abuse patient.[facility]In the event this information is protected by the Federal Confidentiality of Alcohol and Drug Abuse Patient Records regulations: The Federal rules restrict any use of the information to criminally investigate or prosecute any alcohol or drug abuse patient.[facility]In the event this information is protected by the Federal Confidentiality of Alcohol and Drug Abuse Patient Records regulations: The Federal rules restrict any use of the information to criminally investigate or prosecute any alcohol or drug abuse patient.[facility]In the event this information is protected by the Federal Confidentiality of Alcohol and Drug Abuse Patient Records regulations: The Federal rules restrict any use of the information to criminally investigate or prosecute any alcohol or drug abuse patient.[facility]In the event this information is protected by the Federal Confidentiality of Alcohol and Drug Abuse Patient Records regulations: The Federal rules restrict any use of the information to criminally investigate or prosecute any alcohol or drug abuse patient.[facility]In the event this information is protected by the Federal Confidentiality of Alcohol and Drug Abuse Patient Records regulations: The Federal rules restrict any use of the information to criminally investigate or prosecute any alcohol or drug abuse patient.[facility]In the event this information is protected by the Federal Confidentiality of Alcohol and Drug Abuse Patient Records regulations: The Federal rules restrict any use of the information to criminally investigate or prosecute any alcohol or drug abuse patient.[facility]In the event this information is protected by the Federal Confidentiality of Alcohol and Drug Abuse Patient Records regulations: The Federal rules restrict any use of the information to criminally investigate or prosecute any alcohol or drug abuse patient.[facility]In the event this information is protected by the Federal Confidentiality of Alcohol and Drug Abuse Patient Records regulations: The Federal rules restrict any use of the information to criminally investigate or prosecute any alcohol or drug abuse patient.[facility]In the event this information is protected by the Federal Confidentiality of Alcohol and Drug Abuse Patient Records regulations: The Federal rules restrict any use of the information to criminally investigate or prosecute any alcohol or drug abuse patient.[facility]In the event this information is protected by the Federal Confidentiality of Alcohol and Drug Abuse Patient Records regulations: The Federal rules restrict any use of the information to criminally investigate or prosecute any alcohol or drug abuse patient.[facility]In the event this information is protected by the Federal Confidentiality of Alcohol and Drug Abuse Patient Records regulations: The Federal rules restrict any use of the information to criminally investigate or prosecute any alcohol or drug abuse patient.[facility]In the event this information is protected by the Federal Confidentiality of Alcohol and Drug Abuse Patient Records regulations: The Federal rules restrict any use of the information to criminally investigate or prosecute any alcohol or drug abuse patient.[facility]In the event this information is protected by the Federal Confidentiality of Alcohol and Drug Abuse Patient Records regulations: The Federal rules restrict any use of the information to criminally investigate or prosecute any alcohol or drug abuse patient.[facility]In the event this information is protected by the Federal Confidentiality of Alcohol and Drug Abuse Patient Records regulations: The Federal rules restrict any use of the information to criminally investigate or prosecute any alcohol or drug abuse patient.[facility]In the event this information is protected by the Federal Confidentiality of Alcohol and Drug Abuse Patient Records regulations: The Federal rules restrict any use of the information to criminally investigate or prosecute any alcohol or drug abuse patient.[facility]In the event this information is protected by the Federal Confidentiality of Alcohol and Drug Abuse Patient Records regulations: The Federal rules restrict any use of the information to criminally investigate or prosecute any alcohol or drug abuse patient.[facility]In the event this information is protected by the Federal Confidentiality of Alcohol and Drug Abuse Patient Records regulations: The Federal rules restrict any use of the information to criminally investigate or prosecute any alcohol or drug abuse patient.[facility]In the event this information is protected by the Federal Confidentiality of Alcohol and Drug Abuse Patient Records regulations: The Federal rules restrict any use of the information to criminally investigate or prosecute any alcohol or drug abuse patient.[facility]In the event this information is protected by the Federal Confidentiality of Alcohol and Drug Abuse Patient Records regulations: The Federal rules restrict any use of the information to criminally investigate or prosecute any alcohol or drug abuse patient.[facility]In the event this information is protected by the Federal Confidentiality of Alcohol and Drug Abuse Patient Records regulations: The Federal rules restrict any use of the information to criminally investigate or prosecute any alcohol or drug abuse patient.[facility]In the event this information is protected by the Federal Confidentiality of Alcohol and Drug Abuse Patient Records regulations: The Federal rules restrict any use of the information to criminally investigate or prosecute any alcohol or drug abuse patient.[facility]In the event this information is protected by the Federal Confidentiality of Alcohol and Drug Abuse Patient Records regulations: The Federal rules restrict any use of the information to criminally investigate or prosecute any alcohol or drug abuse patient.[facility]In the event this information is protected by the Federal Confidentiality of Alcohol and Drug Abuse Patient Records regulations: The Federal rules restrict any use of the information to criminally investigate or prosecute any alcohol or drug abuse patient.[facility]In the event this information is protected by the Federal Confidentiality of Alcohol and Drug Abuse Patient Records regulations: The Federal rules restrict any use of the information to criminally investigate or prosecute any alcohol or drug abuse patient.[facility]In the event this information is protected by the Federal Confidentiality of Alcohol and Drug Abuse Patient Records regulations: The Federal rules restrict any use of the information to criminally investigate or prosecute any alcohol or drug abuse patient.[facility]In the event this information is protected by the Federal Confidentiality of Alcohol and Drug Abuse Patient Records regulations: The Federal rules restrict any use of the information to criminally investigate or prosecute any alcohol or drug abuse patient.[facility]In the event this information is protected by the Federal Confidentiality of Alcohol and Drug Abuse Patient Records regulations: The Federal rules restrict any use of the information to criminally investigate or prosecute any alcohol or drug abuse patient.[facility]In the event this information is protected by the Federal Confidentiality of Alcohol and Drug Abuse Patient Records regulations: The Federal rules restrict any use of the information to criminally investigate or prosecute any alcohol or drug abuse patient.[facility]In the event this information is protected by the Federal Confidentiality of Alcohol and Drug Abuse Patient Records regulations: The Federal rules restrict any use of the information to criminally investigate or prosecute any alcohol or drug abuse patient.[facility]In the event this information is protected by the Federal Confidentiality of Alcohol and Drug Abuse Patient Records regulations: The Federal rules restrict any use of the information to criminally investigate or prosecute any alcohol or drug abuse patient.[facility]In the event this information is protected by the Federal Confidentiality of Alcohol and Drug Abuse Patient Records regulations: The Federal rules restrict any use of the information to criminally investigate or prosecute any alcohol or drug abuse patient.[facility]In the event this information is protected by the Federal Confidentiality of Alcohol and Drug Abuse Patient Records regulations: The Federal rules restrict any use of the information to criminally investigate or prosecute any alcohol or drug abuse patient.[facility]In the event this information is protected by the Federal Confidentiality of Alcohol and Drug Abuse Patient Records regulations: The Federal rules restrict any use of the information to criminally investigate or prosecute any alcohol or drug abuse patient.[facility]In the event this information is protected by the Federal Confidentiality of Alcohol and Drug Abuse Patient Records regulations: The Federal rules restrict any use of the information to criminally investigate or prosecute any alcohol or drug abuse patient.[facility]In the event this information is protected by the Federal Confidentiality of Alcohol and Drug Abuse Patient Records regulations: The Federal rules restrict any use of the information to criminally investigate or prosecute any alcohol or drug abuse patient.[facility]In the event this information is protected by the Federal Confidentiality of Alcohol and Drug Abuse Patient Records regulations: The Federal rules restrict any use of the information to criminally investigate or prosecute any alcohol or drug abuse patient.[facility]In the event this information is protected by the Federal Confidentiality of Alcohol and Drug Abuse Patient Records regulations: The Federal rules restrict any use of the information to criminally investigate or prosecute any alcohol or drug abuse patient.[facility]In the event this information is protected by the Federal Confidentiality of Alcohol and Drug Abuse Patient Records regulations: The Federal rules restrict any use of the information to criminally investigate or prosecute any alcohol or drug abuse patient.[facility]In the event this information is protected by the Federal Confidentiality of Alcohol and Drug Abuse Patient Records regulations: The Federal rules restrict any use of the information to criminally investigate or prosecute any alcohol or drug abuse patient.[facility]In the event this information is protected by the Federal Confidentiality of Alcohol and Drug Abuse Patient Records regulations: The Federal rules restrict any use of the information to criminally investigate or prosecute any alcohol or drug abuse patient.[facility]In the event this information is protected by the Federal Confidentiality of Alcohol and Drug Abuse Patient Records regulations: The Federal rules restrict any use of the information to criminally investigate or prosecute any alcohol or drug abuse patient.[facility]In the event this information is protected by the Federal Confidentiality of Alcohol and Drug Abuse Patient Records regulations: The Federal rules restrict any use of the information to criminally investigate or prosecute any alcohol or drug abuse patient.[facility]In the event this information is protected by the Federal Confidentiality of Alcohol and Drug Abuse Patient Records regulations: The Federal rules restrict any use of the information to criminally investigate or prosecute any alcohol or drug abuse patient.[facility]In the event this information is protected by the Federal Confidentiality of Alcohol and Drug Abuse Patient Records regulations: The Federal rules restrict any use of the information to criminally investigate or prosecute any alcohol or drug abuse patient.[facility]In the event this information is protected by the Federal Confidentiality of Alcohol and Drug Abuse Patient Records regulations: The Federal rules restrict any use of the information to criminally investigate or prosecute any alcohol or drug abuse patient.[facility]In the event this information is protected by the Federal Confidentiality of Alcohol and Drug Abuse Patient Records regulations: The Federal rules restrict any use of the information to criminally investigate or prosecute any alcohol or drug abuse patient.[facility]In the event this information is protected by the Federal Confidentiality of Alcohol and Drug Abuse Patient Records regulations: The Federal rules restrict any use of the information to criminally investigate or prosecute any alcohol or drug abuse patient.[facility]In the event this information is protected by the Federal Confidentiality of Alcohol and Drug Abuse Patient Records regulations: The Federal rules restrict any use of the information to criminally investigate or prosecute any alcohol or drug abuse patient.[facility]In the event this information is protected by the Federal Confidentiality of Alcohol and Drug Abuse Patient Records regulations: The Federal rules restrict any use of the information to criminally investigate or prosecute any alcohol or drug abuse patient.[facility] HealthIn the event this information is protected by the Federal Confidentiality of Alcohol and Drug Abuse Patient Records regulations: The Federal rules restrict any use of the information to criminally investigate or prosecute any alcohol or drug abuse patient.[facility] HealthIn the event this information is protected by the Federal Confidentiality of Alcohol and Drug Abuse Patient Records regulations: The Federal rules restrict any use of the information to criminally investigate or prosecute any alcohol or drug abuse patient.[facility] HealthIn the event this information is protected by the Federal Confidentiality of Alcohol and Drug Abuse Patient Records regulations: The Federal rules restrict any use of the information to criminally investigate or prosecute any alcohol or drug abuse patient.[facility] HealthIn the event this information is protected by the Federal Confidentiality of Alcohol and Drug Abuse Patient Records regulations: The Federal rules restrict any use of the information to criminally investigate or prosecute any alcohol or drug abuse patient.[facility] HealthIn the event this information is protected by the Federal Confidentiality of Alcohol and Drug Abuse Patient Records regulations: The Federal rules restrict any use of the information to criminally investigate or prosecute any alcohol or drug abuse patient.[facility] HealthIn the event this information is protected by the Federal Confidentiality of Alcohol and Drug Abuse Patient Records regulations: The Federal rules restrict any use of the information to criminally investigate or prosecute any alcohol or drug abuse patient.[facility] HealthIn the event this information is protected by the Federal Confidentiality of Alcohol and Drug Abuse Patient Records regulations: The Federal rules restrict any use of the information to criminally investigate or prosecute any alcohol or drug abuse patient.[facility] HealthIn the event this information is protected by the Federal Confidentiality of Alcohol and Drug Abuse Patient Records regulations: The Federal rules restrict any use of the information to criminally investigate or prosecute any alcohol or drug abuse patient.[facility] HealthIn the event this information is protected by the Federal Confidentiality of Alcohol and Drug Abuse Patient Records regulations: The Federal rules restrict any use of the information to criminally investigate or prosecute any alcohol or drug abuse patient.[facility] HealthIn the event this information is protected by the Federal Confidentiality of Alcohol and Drug Abuse Patient Records regulations: The Federal rules restrict any use of the information to criminally investigate or prosecute any alcohol or drug abuse patient.[facility] HealthIn the event this information is protected by the Federal Confidentiality of Alcohol and Drug Abuse Patient Records regulations: The Federal rules restrict any use of the information to criminally investigate or prosecute any alcohol or drug abuse patient.[facility] HealthIn the event this information is protected by the Federal Confidentiality of Alcohol and Drug Abuse Patient Records regulations: The Federal rules restrict any use of the information to criminally investigate or prosecute any alcohol or drug abuse patient.[facility] HealthIn the event this information is protected by the Federal Confidentiality of Alcohol and Drug Abuse Patient Records regulations: The Federal rules restrict any use of the information to criminally investigate or prosecute any alcohol or drug abuse patient.[facility] HealthIn the event this information is protected by the Federal Confidentiality of Alcohol and Drug Abuse Patient Records regulations: The Federal rules restrict any use of the information to criminally investigate or prosecute any alcohol or drug abuse patient.[facility] HealthIn the event this information is protected by the Federal Confidentiality of Alcohol and Drug Abuse Patient Records regulations: The Federal rules restrict any use of the information to criminally investigate or prosecute any alcohol or drug abuse patient.[facility] HealthIn the event this information is protected by the Federal Confidentiality of Alcohol and Drug Abuse Patient Records regulations: The Federal rules restrict any use of the information to criminally investigate or prosecute any alcohol or drug abuse patient.[facility] HealthIn the event this information is protected by the Federal Confidentiality of Alcohol and Drug Abuse Patient Records regulations: The Federal rules restrict any use of the information to criminally investigate or prosecute any alcohol or drug abuse patient.[facility] HealthIn the event this information is protected by the Federal Confidentiality of Alcohol and Drug Abuse Patient Records regulations: The Federal rules restrict any use of the information to criminally investigate or prosecute any alcohol or drug abuse patient.[facility] HealthIn the event this information is protected by the Federal Confidentiality of Alcohol and Drug Abuse Patient Records regulations: The Federal rules restrict any use of the information to criminally investigate or prosecute any alcohol or drug abuse patient.[facility] HealthIn the event this information is protected by the Federal Confidentiality of Alcohol and Drug Abuse Patient Records regulations: The Federal rules restrict any use of the information to criminally investigate or prosecute any alcohol or drug abuse patient.[facility] HealthIn the event this information is protected by the Federal Confidentiality of Alcohol and Drug Abuse Patient Records regulations: The Federal rules restrict any use of the information to criminally investigate or prosecute any alcohol or drug abuse patient.[facility] HealthIn the event this information is protected by the Federal Confidentiality of Alcohol and Drug Abuse Patient Records regulations: The Federal rules restrict any use of the information to criminally investigate or prosecute any alcohol or drug abuse patient.[facility] HealthIn the event this information is protected by the Federal Confidentiality of Alcohol and Drug Abuse Patient Records regulations: The Federal rules restrict any use of the information to criminally investigate or prosecute any alcohol or drug abuse patient.[facility] HealthIn the event this information is protected by the Federal Confidentiality of Alcohol and Drug Abuse Patient Records regulations: The Federal rules restrict any use of the information to criminally investigate or prosecute any alcohol or drug abuse patient.[facility] HealthIn the event this information is protected by the Federal Confidentiality of Alcohol and Drug Abuse Patient Records regulations: The Federal rules restrict any use of the information to criminally investigate or prosecute any alcohol or drug abuse patient.[facility] HealthIn the event this information is protected by the Federal Confidentiality of Alcohol and Drug Abuse Patient Records regulations: The Federal rules restrict any use of the information to criminally investigate or prosecute any alcohol or drug abuse patient.[facility] HealthIn the event this information is protected by the Federal Confidentiality of Alcohol and Drug Abuse Patient Records regulations: The Federal rules restrict any use of the information to criminally investigate or prosecute any alcohol or drug abuse patient.[facility] HealthIn the event this information is protected by the Federal Confidentiality of Alcohol and Drug Abuse Patient Records regulations: The Federal rules restrict any use of the information to criminally investigate or prosecute any alcohol or drug abuse patient.[facility] HealthIn the event this information is protected by the Federal Confidentiality of Alcohol and Drug Abuse Patient Records regulations: The Federal rules restrict any use of the information to criminally investigate or prosecute any alcohol or drug abuse patient.[facility] HealthIn the event this information is protected by the Federal Confidentiality of Alcohol and Drug Abuse Patient Records regulations: The Federal rules restrict any use of the information to criminally investigate or prosecute any alcohol or drug abuse patient.[facility] HealthIn the event this information is protected by the Federal Confidentiality of Alcohol and Drug Abuse Patient Records regulations: The Federal rules restrict any use of the information to criminally investigate or prosecute any alcohol or drug abuse patient.[facility] HealthIn the event this information is protected by the Federal Confidentiality of Alcohol and Drug Abuse Patient Records regulations: The Federal rules restrict any use of the information to criminally investigate or prosecute any alcohol or drug abuse patient.[facility] HealthIn the event this information is protected by the Federal Confidentiality of Alcohol and Drug Abuse Patient Records regulations: The Federal rules restrict any use of the information to criminally investigate or prosecute any alcohol or drug abuse patient.[facility] HealthIn the event this information is protected by the Federal Confidentiality of Alcohol and Drug Abuse Patient Records regulations: The Federal rules restrict any use of the information to criminally investigate or prosecute any alcohol or drug abuse patient.[facility] HealthIn the event this information is protected by the Federal Confidentiality of Alcohol and Drug Abuse Patient Records regulations: The Federal rules restrict any use of the information to criminally investigate or prosecute any alcohol or drug abuse patient.[facility] HealthIn the event this information is protected by the Federal Confidentiality of Alcohol and Drug Abuse Patient Records regulations: The Federal rules restrict any use of the information to criminally investigate or prosecute any alcohol or drug abuse patient.[facility] HealthIn the event this information is protected by the Federal Confidentiality of Alcohol and Drug Abuse Patient Records regulations: The Federal rules restrict any use of the information to criminally investigate or prosecute any alcohol or drug abuse patient.[facility] HealthIn the event this information is protected by the Federal Confidentiality of Alcohol and Drug Abuse Patient Records regulations: The Federal rules restrict any use of the information to criminally investigate or prosecute any alcohol or drug abuse patient.[facility] HealthIn the event this information is protected by the Federal Confidentiality of Alcohol and Drug Abuse Patient Records regulations: The Federal rules restrict any use of the information to criminally investigate or prosecute any alcohol or drug abuse patient.[facility] HealthIn the event this information is protected by the Federal Confidentiality of Alcohol and Drug Abuse Patient Records regulations: The Federal rules restrict any use of the information to criminally investigate or prosecute any alcohol or drug abuse patient.[facility] HealthIn the event this information is protected by the Federal Confidentiality of Alcohol and Drug Abuse Patient Records regulations: The Federal rules restrict any use of the information to criminally investigate or prosecute any alcohol or drug abuse patient.[facility] HealthIn the event this information is protected by the Federal Confidentiality of Alcohol and Drug Abuse Patient Records regulations: The Federal rules restrict any use of the information to criminally investigate or prosecute any alcohol or drug abuse patient.[facility] HealthIn the event this information is protected by the Federal Confidentiality of Alcohol and Drug Abuse Patient Records regulations: The Federal rules restrict any use of the information to criminally investigate or prosecute any alcohol or drug abuse patient.[facility] HealthIn the event this information is protected by the Federal Confidentiality of Alcohol and Drug Abuse Patient Records regulations: The Federal rules restrict any use of the information to criminally investigate or prosecute any alcohol or drug abuse patient.[facility] HealthIn the event this information is protected by the Federal Confidentiality of Alcohol and Drug Abuse Patient Records regulations: The Federal rules restrict any use of the information to criminally investigate or prosecute any alcohol or drug abuse patient.[facility] HealthIn the event this information is protected by the Federal Confidentiality of Alcohol and Drug Abuse Patient Records regulations: The Federal rules restrict any use of the information to criminally investigate or prosecute any alcohol or drug abuse patient.[facility] HealthIn the event this information is protected by the Federal Confidentiality of Alcohol and Drug Abuse Patient Records regulations: The Federal rules restrict any use of the information to criminally investigate or prosecute any alcohol or drug abuse patient.[facility] HealthIn the event this information is protected by the Federal Confidentiality of Alcohol and Drug Abuse Patient Records regulations: The Federal rules restrict any use of the information to criminally investigate or prosecute any alcohol or drug abuse patient.[facility] HealthIn the event this information is protected by the Federal Confidentiality of Alcohol and Drug Abuse Patient Records regulations: The Federal rules restrict any use of the information to criminally investigate or prosecute any alcohol or drug abuse patient.[facility] HealthIn the event this information is protected by the Federal Confidentiality of Alcohol and Drug Abuse Patient Records regulations: The Federal rules restrict any use of the information to criminally investigate or prosecute any alcohol or drug abuse patient.[facility] HealthIn the event this information is protected by the Federal Confidentiality of Alcohol and Drug Abuse Patient Records regulations: The Federal rules restrict any use of the information to criminally investigate or prosecute any alcohol or drug abuse patient.[facility] HealthIn the event this information is protected by the Federal Confidentiality of Alcohol and Drug Abuse Patient Records regulations: The Federal rules restrict any use of the information to criminally investigate or prosecute any alcohol or drug abuse patient.[facility] HealthIn the event this information is protected by the Federal Confidentiality of Alcohol and Drug Abuse Patient Records regulations: The Federal rules restrict any use of the information to criminally investigate or prosecute any alcohol or drug abuse patient.[facility] HealthIn the event this information is protected by the Federal Confidentiality of Alcohol and Drug Abuse Patient Records regulations: The Federal rules restrict any use of the information to criminally investigate or prosecute any alcohol or drug abuse patient.[facility] HealthIn the event this information is protected by the Federal Confidentiality of Alcohol and Drug Abuse Patient Records regulations: The Federal rules restrict any use of the information to criminally investigate or prosecute any alcohol or drug abuse patient.[facility] HealthIn the event this information is protected by the Federal Confidentiality of Alcohol and Drug Abuse Patient Records regulations: The Federal rules restrict any use of the information to criminally investigate or prosecute any alcohol or drug abuse patient.[facility] HealthIn the event this information is protected by the Federal Confidentiality of Alcohol and Drug Abuse Patient Records regulations: The Federal rules restrict any use of the information to criminally investigate or prosecute any alcohol or drug abuse patient.[facility] HealthIn the event this information is protected by the Federal Confidentiality of Alcohol and Drug Abuse Patient Records regulations: The Federal rules restrict any use of the information to criminally investigate or prosecute any alcohol or drug abuse patient.[facility] HealthIn the event this information is protected by the Federal Confidentiality of Alcohol and Drug Abuse Patient Records regulations: The Federal rules restrict any use of the information to criminally investigate or prosecute any alcohol or drug abuse patient.[facility] HealthIn the event this information is protected by the Federal Confidentiality of Alcohol and Drug Abuse Patient Records regulations: The Federal rules restrict any use of the information to criminally investigate or prosecute any alcohol or drug abuse patient.[facility] Reason for Visit (unrecogniz ed section and content) Reason Onset Date Comments Refill Request 12/12/2021 Reason Comments Forms [employer] PAP Reason Comments Medication Problem Reason Onset Date Comments Refill Request 12/29/2021 Reason Comments Diabetes Reason Onset Date Comments Refill Request 01/12/2022 Reason Comments right calf pain 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 Reason Onset Date [...] Onset Date Comments Transition Of Care 11/22/2022 [facility] 3/7-3/7 d x: chest pain Reason Comments [...] CONSULT TO SLEEP MEDICINE - ADULT OFFICE/OUTPATIENT [facility] 60 MINUTES Vikas Travis PA-C [address] [place] [address] Referral ID Status Reason Start Date Expiration Date V isits Requested Visits Authorized [id number] Closed PCP Requested Referral 02/28/2024 02/27/2025 1 1 Reason Onset Date Comments Refill Request 07/09/2024 Reason Onset Date Comments Refill Request 08/01/2024 Reason Comments Oxygen Order Request Reason Comments Patient Update Reason Onset Date Comments Refill Request 08/15/2024 Reason Comments CGM Order Reason Onset Date Comments Refill Request 08/22/2024 Reason Comments Constipation Reason Comments Patient Update Appointment Reason Comments ER F/U [facility] ER 09/20/24 dx:CP Reason Onset Date Comments [...] initial encounter Procedures CONSULT TO PODIATRY OFFICE/OUTPATIENT [facility] 60 MINUTES Mathieu Virgen MD [address] [place] [address] Phone: tel: fax: Referral ID Status Reason Start Date Expiration Date V isits Requested Visits Authorized [id number] Closed PCP Requested Referral 01/12/2025 01/12/2026 1 1 Reason Comments Diabetes A1C right now is 6.8 according to his marielle Reason Comments FYI-No Action Needed Diabetes note sent to [facility] Reason Onset Date Comments Refill Request 03/27/2025 refill status 03/27/2025 Reason Comments Patient Assistance [facility] form for [facility] Teams (unrecognized sec tion and content) Chief Warden Relationship Specialty Start Date End Date Mathieu Virgen MD [address] [place], [place] [id number] PCP - General Family Practice [facility]10/[facility] [address] [place] [address] Pharmacist Pharmacy 05/24/20 [facility] [address] [place] [address] Pharmacist Pharmacy 03/31/21 Chief Warden Relationship Specialty Start Date End Date Mathieu Virgen MD [address] [place] [address] PCP - General Family Practice 01/10/18 [facility] [address] [place] [address] Pharmacist Pharmacy 05/24/20 [facility] [address] [place] [address] Pharmacist Pharmacy 03/31/21 Chief Warden Relationship Specialty Start Date End Date Mathieu Virgen MD [address] [place] [address] PCP - General Family Practice 01/10/18 [facility] [address] [place] [address] Pharmacist Pharmacy 05/24/20 [facility] [address] [place] [address] Pharmacist Pharmacy 03/31/21 Chief Warden Relationship Specialty Start Date End Date Mathieu Virgen MD [address] [place] [address] PCP - General Family Practice 01/10/18 [facility] [address] [place] [address] Pharmacist Pharmacy 05/24/20 [facility] [address] [facility] [place] [address] Pharmacist Pharmacy 03/31/21 Chief Warden Relationship Specialty Start Date End Date Mathieu Virgen MD [address] [facility] [place] [address] PCP - General Family Practice 01/10/18 [facility] [address] [place] [address] Pharmacist Pharmacy 05/24/20 [facility] [address] [place] [address] Pharmacist Pharmacy 03/31/21 Chief Warden Relationship Specialty Start Date End Date Mathieu Virgen MD [address] [place] [address] PCP - General Family Practice 01/10/18 [facility] [address] [facility] [place] [address] Pharmacist Pharmacy 05/24/20 [facility] [address] [place] [address] Pharmacist Pharmacy 03/31/21 Chief Warden Relationship Specialty Start Date End Date Mathieu Virgen MD [address] [place] [address] PCP - General Family Practice 01/10/18 [facility] [address] [place] [address] Pharmacist Pharmacy 05/24/20 Kaitlyn Hernández, [facility] [address] [place] [address] Pharmacist Pharmacy 03/31/21 Chief Warden Relationship Specialty Start Date End Date Mathieu Virgen MD [address] [place] [address] PCP - General Family Practice 01/10/18 [facility] [address] [place] [address] Pharmacist Pharmacy 05/24/20 [facility] [address] [place] [address] Pharmacist Pharmacy 03/31/21 Chief Warden Relationship Specialty Start Date End Date Mathieu Virgen MD [address] [place] [address] PCP - General Family Practice 01/10/18 Asad Rothman, [facility] [address] [place] [address] Pharmacist Pharmacy 05/24/20 [facility] [address] [place] [address] Pharmacist Pharmacy 03/31/21 Chief Warden Relationship Specialty Start Date End Date Mathieu Virgen MD [address] [place] [address] PCP - General Family Practice 01/10/18 [facility] [address] [place] [address] Pharmacist Pharmacy 05/24/20 [facility] [address] [place] [address] Pharmacist Pharmacy 03/31/21 Chief Warden Relationship Specialty Start Date End Date Mathieu Virgen MD [address] [facility] [place] [address] PCP - General Family Practice 01/10/18 [facility] [address] [facility] [place] [address] Pharmacist Pharmacy 05/24/20 [facility] [address] [place] [address] Pharmacist Pharmacy 03/31/21 Chief Warden Relationship Specialty Start Date End Date Mathieu Virgen MD [address] [facility] [place] [address] PCP - General Family Practice 01/10/18 [facility] [address] [place] [address] Pharmacist Pharmacy 05/24/20 [facility] [address] [facility] [place] [address] Pharmacist Pharmacy 03/31/21 Chief Warden Relationship Specialty Start Date End Date Mathieu Virgen MD [address] [place] [address] PCP - General Family Practice 01/10/18 Stephan Gregoriocj, [facility] [address] [place] [address] Pharmacist Pharmacy 05/24/20 [facility] [address] [place] [address] Pharmacist Pharmacy 03/31/21 Chief Warden Relationship Specialty Start Date End Date Mathieu Virgen MD [address] [facility] [place] [address] PCP - General Family Practice 01/10/18 Asad Rothman, [facility] [address] [place] [address] Pharmacist Pharmacy 05/24/20 [facility] [address] [place] [address] Pharmacist Pharmacy 03/31/21 Chief Warden Relationship Specialty Start Date End Date Mathieu Virgen MD [address] [place] [address] PCP - General Family Medicine 01/10/18 Stephan Gregoriocj, [facility] [address] [place] [address] Pharmacist Pharmacy 05/24/20 Kaitlyn Hernández, [facility] [address] [place] [address] Pharmacist Pharmacy 03/31/21 Chief Warden Relationship Specialty Start Date End Date Mathieu Virgen MD [address] [facility] [place] [address] PCP - General Family Medicine 01/10/18 Asad Rothman, [facility] - [place] [address] [facility] [place] [address] Pharmacist Pharmacy 05/24/20 Jaqueline Hernándezily, Formerly [facility] [address] [facility] [place] [address] Pharmacist Pharmacy 03/31/21 Chief Warden Relationship Specialty Start Date End Date Mathieu Virgen MD [address] [place] [address] PCP - General Family Medicine 01/10/18 Asad Rothman, [facility]ly [facility] [address] [place] [place] [address] Pharmacist Pharmacy 05/24/20 Kaitlyn Hernández, Formerly [facility] [address] [place] [address] Pharmacist Pharmacy 03/31/21 Chief Warden Relationship Specialty Start Date End Date Mathieu Virgen MD [address] [place] [address] PCP - General Family Medicine 01/10/18 Asad Rothman, [facility]ly [facility] [place] [address] [facility] [place] [address] Pharmacist Pharmacy 05/24/20 Jaqueline Hernándezily, Formerly [facility] [place] [address] [place] [address] Pharmacist Pharmacy 03/31/21 Chief Warden Relationship Specialty Start Date End Date Mathieu Virgen MD [address] [place] [address] PCP - General Family Medicine 01/10/18 Asad Rothman, [facility] [address] [facility] [place] [address] Pharmacist Pharmacy 05/24/20 Kaitlyn Hernández, [facility]ly [facility] [address] [facility] [place] [address] Pharmacist Pharmacy 03/31/21 Chief Warden Relationship Specialty Start Date End Date Mathieu Virgen MD [address] [place] [address] PCP - General Family Medicine 01/10/18 [facility] [address] [place] [place] [address] Pharmacist Pharmacy 05/24/20 Kaitlyn [facility] [address] [facility] [place] [address] Pharmacist Pharmacy 03/31/21 Chief Warden Relationship Specialty Start Date End Date Mathieu Virgen MD [address] [place] [address] PCP - General Family Medicine 01/10/18 Asad [facility] [address] [facility] [place] [address] Pharmacist Pharmacy 05/24/20 Kaitlyn [facility] [address] [place] [address] Pharmacist Pharmacy 03/31/21 Team Status: Active Member [...] Dr. Narda Kebede MD Attending Provider Active Chief Warden Relationship Specialty Start Date End Date Mathieu Virgen MD [address] [place] [address] PCP - General Family Medicine 01/10/18 [facility]ague[facility] [address] [place] [address] Pharmacist Pharmacy 05/24/20 Kaitlyn [facility] [address] [place] [address] Pharmacist Pharmacy 03/31/21 Chief Warden Relationship Specialty Start Date End Date Mathieu Virgen MD [address] [place] [address] PCP - General Family Medicine 01/10/18 Asad [facility] [address] [place] [address] Pharmacist Pharmacy 05/24/20 Kaitlyn [facility] [address] [place] [address] Pharmacist Pharmacy 03/31/21 Chief Warden Relationship Specialty Start Date End Date Mathieu Virgen MD [address] [place] [address] PCP - General Family Medicine 01/10/18 Asad Rothman, [facility] [address] [place] [address] Pharmacist Pharmacy 05/24/20 Kaitlyn [facility] [address] [place] [address] Pharmacist Pharmacy 03/31/21 Chief Warden Relationship Specialty Start Date End Date Mathieu Virgen MD [address] [place] [address] PCP - General Family Medicine 01/10/18 Asad [facility] [address] [place] [address] Pharmacist Pharmacy 05/24/20 Kaitlyn [facility] [address] [place] [address] Pharmacist Pharmacy 03/31/21 Chief Warden Relationship Specialty Start Date End Date Mathieu Virgen MD [address] [place] [address] PCP - General Family Medicine 01/10/18 Asad Rothman, [facility] [address] [place] [address] Pharmacist Pharmacy 05/24/20 Kaitlyn [facility] [address] [place] [address] Pharmacist Pharmacy 03/31/21 Team Status: Inactive Member Role Status Dates Dr. Mathieu Virgen MD Primary Care Provider, Referring Provider Active Halle Pina ALIGNER TYPEWRITER, ALIGNER TYPEWRITER-C Attending Provider Active Team Status: Active Member [...] DO Attending Provider, Emergency Pr ovider Active Chief Warden Relationship Specialty Start Date End Date Mathieu Virgen MD [address] [place] [address] PCP - General Family Medicine 01/10/18 Asad Rothman, [facility] [address] [place] [address] Pharmacist Pharmacy 05/24/20 Kaitlyn [facility] [address] [place] [place] [address] Pharmacist Pharmacy 03/31/21 Chief Warden Relationship Specialty Start Date End Date Mathieu Virgen MD [address] [place] [address] PCP - General Family Medicine 01/10/18 Asad Rothman, [facility] [address] [place] [address] Pharmacist Pharmacy 05/24/20 Kaitlyn [facility] [address] [place] [address] Pharmacist Pharmacy 03/31/21 Team Status: Inactive Member Role Status Dates Dr. Mathieu Virgen MD Primary Care Provider Active Dr. Mani Esquivel DO Emergency Provider Active Chief Warden Relationship Specialty Start Date End Date Mathieu Virgen MD [address] [place] [address] PCP - General Family Medicine 01/10/18 Asad Rothman, [facility] [address] [place] [address] Pharmacist Pharmacy 05/24/20 Kaitlyn Hernández, Former[facility] [address] [place] [address] Pharmacist Pharmacy 03/31/21 Chief Warden Relationship Specialty Start Date End Date Mathieu Viregn MD [address] [place] [address] PCP - General Family Medicine 01/10/18 FaizanAasd spragueResearch [facility] [address] [place] [address] Pharmacist Pharmacy 05/24/20 [place], [facility]aitlynResearch [facility]iatric [facility] [address] [place] [address] Pharmacist Pharmacy 03/31/21 Chief Warden Relationship Specialty Start Date End Date Mathieu Virgen MD [address] [place] [address] PCP - General Family Medicine 01/10/18 Asad [facility] [address] [place] [address] Pharmacist Pharmacy 05/24/20 Jaqueline HernándezilyResearch [facility] [address] [place] [address] Pharmacist Pharmacy 03/31/21 Chief Warden Relationship Specialty Start Date End Date Mathieu Virgen MD [address] [place] [address] PCP - General Family Medicine 01/10/18 Stephan GregoriocjResearch [facility] [address] [place] [address] Pharmacist Pharmacy 05/24/20 Edgar KaitlynResearch Psychiatric Center [address] [place] [address] Pharmacist Pharmacy 03/31/21 Chief Warden Relationship Specialty Start Date End Date Mathieu Virgen MD [address] [place] [address] PCP - General Family Medicine 01/10/18 Asad Rothman, [facility] [address] [place] [address] Pharmacist Pharmacy 05/24/20 Edgar Kaitlyn, Formerly [facility] [address] [place] [address] Pharmacist Pharmacy 03/31/21 Chief Warden Relationship Specialty Start Date End Date Mathieu Virgen MD [address] [place] [address] PCP - General Family Medicine 01/10/18 Asad Rothman, [facility] [address] [place] [address] Pharmacist Pharmacy 05/24/20 Edgar Kaitlyn, Former[facility] [address] [place] [address] Pharmacist Pharmacy 03/31/21 Chief Warden Relationship Specialty Start Date End Date Mathieu Virgen MD [address] [place] [address] PCP - General Family Medicine 01/10/18 FaizanAsad sprague, Formerly [facility] [address] [place] [address] Pharmacist Pharmacy 05/24/20 Aurora, Kaitlyn, Former[facility] [address] [place] [address] Pharmacist Pharmacy 03/31/21 Chief Warden Relationship Specialty Start Date End Date Mathieu Virgen MD [address] [place] [address] PCP - General Family Medicine 01/10/18 Stephan Gregoriocj, Formerly [facility] [address] [place] [address] Pharmacist Pharmacy 05/24/20 Kaitlyn Hernández, Former[facility] [address] [place] [address] Pharmacist Pharmacy 03/31/21 Chief Warden Relationship Specialty Start Date End Date Mathieu Virgen MD [address] [place] [address] PCP - General Family Medicine 01/10/18 Asad Rothman, [facility] [address] [place] [address] Pharmacist Pharmacy 05/24/20 Kaitlyn Hernández, Former[facility] [address] [place] [address] Pharmacist Pharmacy 03/31/21 Chief Warden Relationship Specialty Start Date End Date Mathieu Virgen MD [address] [place] [address] PCP - General Family Medicine 01/10/18 Asad Rothman, [facility] [address] [place] [address] Pharmacist Pharmacy 05/24/20 Kaitlyn Hernández[facility] [address] [place] [address] Pharmacist Pharmacy 03/31/21 Chief Warden Relationship Specialty Start Date End Date Mathieu Virgen MD [address] [place] [address] PCP - General Family Medicine 01/10/18 Asad Rothman, [facility] [address] [place] [address] Pharmacist Pharmacy 05/24/20 Kaitlyn Hernández, [facility] [address] [place] [address] Pharmacist Pharmacy 03/31/21 Chief Warden Relationship Specialty Start Date End Date Mathieu Virgen MD [address] [place] [address] PCP - General Family Medicine 01/10/18 Asad [facility] [address] [place] [address] Pharmacist Pharmacy 05/24/20 EdgarKaitlyn byrneResearch Psychiatric Center [address] [place] [address] Pharmacist Pharmacy 03/31/21 Team Status: Inactive Member Role Status Dates Dr. Mathieu Virgen MD Primary Care Provider Active Dr. Chris Faulkner MD Attending Provider, Chun moore Active Chief Warden Relationship Specialty Start Date End Date Mathieu Virgen MD [address] [place] [address] PCP - General Family Medicine 01/10/18 Asad [facility]man[facility] [address] [place] [address] Pharmacist Pharmacy 05/24/20 Kaitlyn HernándezResearch [facility] [address] [place] [address] Pharmacist Pharmacy 03/31/21 Chief Warden Relationship Specialty Start Date End Date Mathieu Virgen MD [address] [place] [address] PCP - General Family Medicine 01/10/18 Asad Rothman, [facility] [address] [place] [address] Pharmacist Pharmacy 05/24/20 Kaitlyn Hernández, [facility] [address] [place] [address] Pharmacist Pharmacy 03/31/21 Chief Warden Relationship Specialty Start Date End Date Mathieu Virgen MD [address] [place] [address] PCP - General Family Medicine 01/10/18 Kaitlyn Hern[facility] [address] [place] [address] Pharmacist Pharmacy 03/31/21 Chief Warden Relationship Specialty Start Date End Date Mathieu Virgen MD [address] [place] [address] PCP - General Family Medicine 01/10/18 [facility] [address] [place] [address] Pharmacist Pharmacy 03/31/21 Chief Warden Relationship Specialty Start Date End Date Mathieu Virgen MD [address] [place] [address] PCP - General Family Medicine 01/10/18 Team Status: Inactive Member Role Status Dates Dr. Mathieu Virgen MD Primary Care Provider Active Dr. Tre Johnson DO Emergency Provider Active Team Status: Inactive Member Role Status Dates Dr. Mathieu Virgen MD Primary Care Provider Active Dr. Chris Faulkner MD Attending Provider Active Chief Warden Relationship Specialty Start Date End Date Mathieu Virgen MD [address] [place] [address] PCP - General Family Medicine 01/10/18 Chief Warden Relationship Specialty Start Date End Date Mathieu Virgen MD [address] [place], [place] [address] PCP - General Family Medicine 01/10/18 Chief Warden Relationship Specialty Start Date End Date Mathieu Virgen MD [address] [place] [address] PCP - General Family Medicine 01/10/18 Chief Warden Relationship Specialty Start Date End Date Mathieu Virgen MD [address] [place] [address] PCP - General Family Medicine 01/10/18 Chief Warden Relationship Specialty Start Date End Date Mathieu Virgen MD [address] [place] [address] PCP - General Family Medicine 01/10/18 Chief Warden Relationship Specialty Start Date End Date Mathieu Virgen MD [address] [place] [address] PCP - General Family Medicine 01/10/18 Chief Warden Relationship Specialty Start Date End Date Mathieu Virgen MD [address] [place] [address] PCP - General Family Medicine 01/10/18 Chief Warden Relationship Specialty Start Date End Date Mathieu Virgen MD [address] [place] [address] PCP - General Family Medicine 01/10/18 Chief Warden Relationship Specialty Start Date End Date Mathieu Virgen MD [address] [place], [place] [address] PCP - General Family Medicine 01/10/18 Chief Warden Relationship Specialty Start Date End Date Mathieu Virgen MD [address] [place], [place] [address] PCP - General Family Medicine 01/10/18 Chief Warden Relationship Specialty Start Date End Date Mathieu Virgen MD [address] [place] [address] PCP - General Family Medicine 01/10/18 Chief Warden Relationship Specialty Start Date End Date Mathieu Virgen MD [address] [place] [address] PCP - General Family Medicine 01/10/18 Chief Warden Relationship Specialty Start Date End Date Mathieu Virgen MD [address] [place] [address] PCP - General Family Medicine 01/10/18 Chief Warden Relationship Specialty Start Date End Date Mathieu Virgen MD [address] [place] [address] PCP - General Family Medicine 01/10/18 Chief Warden Relationship Specialty Start Date End Date Mathieu Virgen MD [address] [place] [address] PCP - General Family Medicine 01/10/18 Chief Warden Relationship Specialty Start Date End Date Mathieu Virgen MD [address] [place] [address] PCP - General Family Medicine 01/10/18 Chief Warden Relationship Specialty Start Date End Date Mathieu Virgen MD [address] [place] [address] PCP - General Family Medicine 01/10/18 Chief Warden Relationship Specialty Start Date End Date Mathieu Virgen MD [address] [place] [address] PCP - General Family Medicine 01/10/18 FaizanAsad sprague, [facility] [address] [place] [address] Pharmacist Pharmacy 05/24/20 07/30/23 Edgar KaitlynResearch [facility]iatric [facility] [address] [place] [address] Pharmacist Pharmacy 03/31/21 08/29/23 Chief Warden Relationship Specialty Start Date End Date Mathieu Virgen MD [address] [place] [address] PCP - General Family Medicine 01/10/18 Asad Rothman, [facility] [address] [place] [address] Pharmacist Pharmacy 05/24/20 07/30/23 Kaitlyn Hernández, [facility] [address] [place] [address] Pharmacist Pharmacy 03/31/21 08/29/23 Chief Warden Relationship Specialty Start Date End Date Mathieu Virgen MD [address] [place] [address] PCP - General Family Medicine 01/10/18 FaizanAsad sprague, [facility] [address] [place] [address] Pharmacist Pharmacy 05/24/20 07/30/23 Kaitlyn Hernández, [facility] [address] [place] [address] Pharmacist Pharmacy 03/31/21 08/29/23 Chief Warden Relationship Specialty Start Date End Date Mathieu Virgen MD [address] [place] [address] PCP - General Family Medicine 01/10/18 Asad Rothman, [facility] [address] [place] [address] Pharmacist Pharmacy 05/24/20 07/30/23 Kaitlyn Hern[facility] [address] [place] [address] Pharmacist Pharmacy 03/31/21 08/29/23 Chief Warden Relationship Specialty Start Date End Date Mathieu Virgen MD [address] [place] [address] PCP - General Family Medicine 01/10/18 Asad Rothman, [facility] [address] [place] [address] Pharmacist Pharmacy 05/24/20 07/30/23 Kaitlyn Hernández, [facility] [address] [place] [address] Pharmacist Pharmacy 03/31/21 08/29/23 Chief Warden Relationship Specialty Start Date End Date Mathieu Virgen MD [address] [place] [address] PCP - General Family Medicine 01/10/18 Asad Rothman, [facility] [address] [place] [address] Pharmacist Pharmacy 05/24/20 07/30/23 Chief Warden Relationship Specialty Start Date End Date Mathieu Virgen MD [address] [place] [address] PCP - General Family Medicine 01/10/18 Chief Warden Relationship Specialty Start Date End Date Mathieu Virgen MD [address] [place] [address] PCP - General Family Medicine 01/10/18 Chief Warden Relationship Specialty Start Date End Date Mathieu Virgen MD [address] [place] [address] PCP - General Family Medicine 01/10/18 Chief Warden Relationship Specialty Start Date End Date Mathieu Virgen MD [address] [place] [address] PCP - General Family Medicine 01/10/18 Chief Warden Relationship Specialty Start Date End Date Mathieu Virgen MD [address] [place] [address] PCP - General Family Medicine 01/10/18 Chief Warden Relationship Specialty Start Date End Date Mathieu Virgen MD [address] [place] [address] PCP - General Family Medicine 01/10/18 Chief Warden Relationship Specialty Start Date End Date Mathieu Virgen MD [address] [place] [address] PCP - General Family Medicine 01/10/18 Chief Warden Relationship Specialty Start Date End Date Mathieu Virgen MD [address] [place] [address] PCP - General Family Medicine 01/10/18 Chief Warden Relationship Specialty Start Date End Date Mathieu Virgen MD [address] [place] [address] PCP - General Family Medicine 01/10/18 Chief Warden Relationship Specialty Start Date End Date Mathieu Virgen MD [address] [place] [address] PCP - General Family Medicine 01/10/18 Chief Warden Relationship Specialty Start Date End Date Mathieu Virgen MD [address] [place] [address] PCP - General Family Medicine 01/10/18 Denisha Shepard, RAILWAY SIGNAL ELECTRICIAN.CBX OPERATOR [address] [facility] [place] [address] Cabinet Worker Family Medicine 08/25/24 Julianna Hood RAILWAY SIGNAL ELECTRICIAN.CBX OPERATOR [address] [place] [address] Cabinet Worker Family Medicine 08/25/24 Chief Warden Relationship Specialty Start Date End Date Mathieu Virgen MD [address] [place] [address] PCP - General Family Medicine 01/10/18 Denisha Shepard, RAILWAY SIGNAL ELECTRICIAN.CBX OPERATOR [address] [facility] [place] [address] Cabinet Worker Family Medicine 08/25/24 Julianna Hood RAILWAY SIGNAL ELECTRICIAN.CBX OPERATOR [address] [place] [address] Cabinet Worker Family Medicine 08/25/24 Chief Warden Relationship Specialty Start Date End Date Mathieu Virgen MD [address] [place] [address] PCP - General Family Medicine 01/10/18 Denisha Shepard, RAILWAY SIGNAL ELECTRICIAN.CBX OPERATOR [address] [place] [address] Cabinet Worker Family Medicine 08/25/24 Julianna Hood APRN.CBX OPERATOR [address] [place] [address] Cabinet Worker Family Medicine 08/25/24 Chief Warden Relationship Specialty Start Date End Date Mathieu Virgen MD [address] [place] [address] PCP - General Family Medicine 01/10/18 Denisha Shepard APRN.CBX OPERATOR [address] [place] [address] Cabinet Worker Family Medicine 08/25/24 Julianna Hood RAILWAY SIGNAL ELECTRICIAN.CBX OPERATOR [address] [place] [address] Cabinet Worker [facility] 08/25/24 Chief Warden Relationship Specialty Start Date End Date Mathieu Virgen MD [address] [place] [address] PCP - General Family Medicine 01/10/18 Denisha Shepard RAILWAY SIGNAL ELECTRICIAN.CBX OPERATOR [address] [place] [address] Cabinet Worker Family Medicine 08/25/24 Julianna Hood RAILWAY SIGNAL ELECTRICIAN.CBX OPERATOR [address] [place] [address] Cabinet Worker Family [facility] 08/25/24 Chief Warden Relationship Specialty Start Date End Date Mathieu Virgen MD [address] [place] [address] PCP - General Family Medicine 01/10/18 Denisha Shepard APRN.CBX OPERATOR [address] [place] [address] Cabinet Worker Family Medicine 08/25/24 Julianna Hood APRN.CBX OPERATOR [address] [place] [address] Cabinet Worker Family Medicine 08/25/24 Chief Warden Relationship Specialty Start Date End Date Mathieu Virgen MD [address] [place] [address] PCP - General Family Medicine 01/10/18 Denisha Shepard APRN.CBX OPERATOR [address] [place] [address] Cabinet Worker Family Medicine 08/25/24 Julianna Hood APRN.CBX OPERATOR [address] [place] [address] [facility] 08/25/24 Chief Warden Relationship Specialty Start Date End Date Mathieu Virgen MD [address] [place] [address] PCP - General Family Medicine 01/10/18 Denisha Shepard APRN.CBX OPERATOR [address] [place] [address] Cabinet Worker Family Medicine 08/25/24 Julianna Hood APRN.CBX OPERATOR [address] [place] [address] [facility] 08/25/24 Chief Warden Relationship Specialty Start Date End Date Mathieu Virgen MD [address] [place], [place] [address] PCP - General Family Medicine 01/10/18 Denisha Shepard APRN.CBX OPERATOR [address] [place], [place] [address] [facility] 08/25/24 Julianna Hood APRN.CBX OPERATOR [address] [place], [place] [id number] [facility] 08/25/24 Team Status: Active Member Role Status Dates Dr. Mathieu Virgen MD Primary Care Provider Active Team Status: Inactive Member Role Status Dates Dr. Mathieu Virgen MD Primary Care Provider Active Start: August 11, 2024 End: August 11, 2024 Sergey Carreon ALIGNER TYPEWRITER, ALIGNER TYPEWRITER-C Attending Provider Active S tart: August 11, 2024 End: August 11, 2024 Sergey Carreon NP, ALIGNER TYPEWRITER-C Referring Provider Active S tart: August 11, 2024 End: August 11, 2024 Team Status: Inactive Member Role Status Dates Dr. Mathieu Virgen MD Primary Care Provider Active Start: August 13, 2024 End: August 13, 2024 Dr. Mathieu Virgen MD Referring Provider Active Start: August 13, 2024 End: August 13, 2024 Sergey Carreon NP, ALIGNER TYPEWRITER-C Attending Provider Active S tart: August 13, [...] End: September 03, 2024 Sergey Carreon NP ALIGNER TYPEWRITER-C Attending Provider Active S tart: September 03, [...] 2024 End: November 10, 2024 Megan Macario ALIGNER TYPEWRITER-C Attending Provider Active Start: November 10, 2024 [...] November 28, 2024 End: November 28, 2024 Chief Warden Relationship Specialty Start Date End Date Mathieu Virgen MD [address] [place] [address] PCP - General Family Medicine 01/10/18 Denisha Shepard, PAIGE.CBX OPERATOR [address] [place] [address] Cabinet Worker Family Medicine 08/25/24 Julianna Hood, RAILWAY SIGNAL ELECTRICIAN.CBX OPERATOR [address] [place] [address] Cabinet Worker Family [facility] 08/25/24 Chief Warden Relationship Specialty Start Date End Date Mathieu Virgen MD [address] [address] PCP - General Family Medicine 01/10/18 Denisha Shepard RAILWAY SIGNAL ELECTRICIAN.CBX OPERATOR [address] [place] [address] Cabinet Worker Family Medicine 08/25/24 Julianna Hood RAILWAY SIGNAL ELECTRICIAN.CBX OPERATOR [address] [place] [address] [facility] 08/25/24 Chief Warden Relationship Specialty Start Date End Date Mathieu Virgen MD [address] [place] [address] PCP - General Family Medicine 01/10/18 Denisha Shepard, RAILWAY SIGNAL ELECTRICIAN.CBX OPERATOR [address] [place] [address] [facility] 08/25/24 Julianna Hood RAILWAY SIGNAL ELECTRICIAN.CBX OPERATOR [address] [place] [address] [facility] 08/25/24 Chief Warden Relationship Specialty Start Date End Date Mathieu Virgen MD [address] [place] [address] PCP - General Family Medicine 01/10/18 Denisha Shepard, RAILWAY SIGNAL ELECTRICIAN.CBX OPERATOR [address] [place] [address] [facility] 08/25/24 Julianna Hood RAILWAY SIGNAL ELECTRICIAN.CBX OPERATOR [address] [place] [address] [facility] 08/25/24 Chief Warden Relationship Specialty Start Date End Date Mathieu Virgen MD [address] [place] [address] PCP - General Family Medicine 01/10/18 Denisha Shepard, RAILWAY SIGNAL ELECTRICIAN.CBX OPERATOR [address] [place] [address] [facility] 08/25/24 Julianna Hood RAILWAY SIGNAL ELECTRICIAN.CBX OPERATOR [address] [place] [address] [facility] 08/25/24 Chief Warden Relationship Specialty Start Date End Date Mathieu Virgen MD [address] [place] [address] PCP - General Family Medicine 01/10/18 Denisha Shepard, RAILWAY SIGNAL ELECTRICIAN.CBX OPERATOR [address] [place] [address] [facility] 08/25/24 Julianna Hood RAILWAY SIGNAL ELECTRICIAN.CBX OPERATOR [address] [place] [address] [facility] 08/25/24 Team Status: Inactive Member Role Status [...] End: January 26, 2025 Sergey Carreon NP, ALIGNER TYPEWRITER-C Attending Provider Active S tart: January 26, 2025 End: January 26, 2025 Chief Warden Relationship Specialty Start Date End Date Mathieu Virgen MD [address] [place], [place] [address] PCP - General Family Medicine 01/10/18 Denisha Shepard APRN.CBX OPERATOR [address] [place] [address] Cabinet Worker Family Medicine 08/25/24 Julianna Hood APRN.CBX OPERATOR [address] [facility], [place] [id number] [facility] 08/25/24 Team Status: Inactive Member Role Status [...] Provider Active S tart: March 02, 2025 Chief Warden Relationship Specialty Start Date End Date Mathieu Virgen MD [address] [facility], [place] [address] PCP - General Family Medicine 01/10/18 Denisha Shepard, RAILWAY SIGNAL ELECTRICIAN.CBX OPERATOR [address] [facility], [place] [id number] [facility] 08/25/24 Julianna Hood, RAILWAY SIGNAL ELECTRICIAN.CBX OPERATOR [address] [facility], [place] [address] [facility] 08/25/24 Team Status: Active Member Role/Relationship Status [...] End: January 26, 2025 Sergey Carreon NP ALIGNER TYPEWRITER-C Attending Provider Active S tart: January 26, 2025 End: January 26, 2025 Team Status: Inactive Member Role/Relationship Status Dates Dr. Mathieu Virgen MD Primary Care Provider Active Start: January 30, 2025 End: January 30, 2025 TALIA WelchC Attending Provider Active Start: January 30, 2025 End: January 30, 2025 Megan Macario ALIGNER TYPEWRITER-C Referring Provider Active Start: January 30, 2025 End: January 30, 2025 Team Status: Active Member Role/Relationship Status Dates Dr. Mathieu Virgen MD Primary Care Provider Active Start: January 30, 2025 Dr. Marvin Reeves , Attending Provider Active S tart: January 30, 2025 Megan Macario ALIGNER TYPEWRITER-C Referring Provider Active Start: January 30, 2025 Team Status: Inactive Member Role/Relationship Status Dates Dr. Mathieu Virgen MD Primary Care Provider Active Start: February 26, 2025 End: February 26, 2025 Megan Macario ALIGNER TYPEWRITER-C Attending Provider Active Start: February 26, 2025 End: February 26, 2025 Megan Macario ALIGNER TYPEWRITER-C Referring Provider Active Start: February 26, 2025 End: February 26, 2025 Team Status: Active Member Role/Relationship Status Dates Dr. Mathieu Virgen MD Primary Care Provider Active Start: March 02, 2025 Megan Macario ALIGNER TYPEWRITER-C Referring Provider Active Start: March 02, 2025 Megan Macario NP-C Other Provider Active St art: March 02, 2025 Dr. Marvin Reeves , Attending Provider Active S tart: March 02, 2025 Team Status: Inactive Member Role/Relationship Status Dates Dr. Mathieu Virgen MD Primary Care Provider Active Start: April 01, 2025 End: April 01, 2025 Megan Macario ALIGNER TYPEWRITER-C Attending Provider Active Start: April 01, 2025 [...] End: January 26, 2025 Sergey Carreon NP, ALIGNER TYPEWRITER-C Attending Provider Active S tart: January 26, [...] Provider Active S tart: April 30, 2025 Chief Warden Relationship Specialty Start Date End Date Mathieu Virgen MD [address] [place], [place] [id number] PCP - General Family Medicine 01/10/18 Denisha Shepard APRN.CBX OPERATOR [address] [place], [place] [id number] Cabinet Worker Family Medicine 08/25/24 Julianna Hood APRN.CBX OPERATOR [address] [place] [address] [facility] 08/25/24 Team Status: Inactive Member Role/Relationship Status [...] content) DATE CREATED AUTHOR 05/18/2024 [facility] DATE CREATED AUTHOR AUTHOR'S ORGANIZ ATION 05/03/2025 [facility] DATE CREATED AUTHOR AUTHOR'S ORGANIZ ATION 05/30/2025 [facility] FOR RECORDS PERTAINING TO PATIENTS WHO [...] BE BASED ON THE PRIMARY CLINICAL RECORDS. [facility], [facility]. provides no warranty or guarantee of the accuracy or completeness of information in this document.
[2025-05-31] MEDS: APIXABAN 5 MG TABLET PO (20:58)
[2025-06-01] MEDS: INSULN SQ ×5 (00:08→15:59)
[2025-06-01] MEDS: INSULIN ASPART 100 UNIT/ML SQ ×5 (00:08→15:59)
[2025-06-01 01:30] VITALS: BP 132/86; PULSE 72; RESP 15; TEMP 36.6; O2SAT 99
[2025-06-01 05:10] LABS: Hematocrit 43.6 % (40-54); Hemoglobin 14.7 g/dL (13.0-16.5); Mean Corp Hgb Conc 33.7 g/dL (32-36); Mean Corpuscular Volume 81.5 fL (80-94); Mean Platelet Vol. 10.1 fl (6.2-12.0); Platelet Count 264 K/mm3 (150-450); RBC Distribution Width CV 15.6 % (11.6-14.6); RBC Distribution Width SD 46.3 fl (35.1-43.9); Red Blood Count 5.35 M/mm3 (4.6-6.2); White Blood Count 11.8 K/mm3 (4.4-11.0)
[2025-06-01 05:45] LABS: Anion Gap 12 (5-15); BUN 25 mg/dL (4-19); BUN/Creat Ratio 24.7 RATIO (10-20); Calcium,Total 9.3 mg/dL (7.6-11.0); Carbon Dioxide 22.2 mmol/L (21.0-32.0); Chloride 102 mmol/L (98-108); Estimated Creatinine Clearance 75.15 ml/min (50-250); Glucose 148 mg/dL (70-99); Potassium 4.2 mmol/L (3.3-5.1)
[2025-06-01 08:27] VITALS: BP 120/57; PULSE 75; RESP 16; TEMP 36.1; O2SAT 93
--- NOTE | 2025-06-01 08:35 | EKG12_ITS ---
Test Reason : AM EKG Blood Pressure : */* mmHG Vent. Rate : 75 BPM Atrial Rate : 75 BPM P-R Int : 226 ms QRS Dur : 138 ms QT Int : 424 ms P-R-T Axes : 4 -75 21 degrees QTcB Int : 473 ms Sinus rhythm with 1st degree A-V block Left axis deviation Right bundle branch block Inferior infarct , age undetermined Abnormal ECG When compared with ECG of 31-May-2025 11:11, MANUAL COMPARISON REQUIRED DATA IS UNCONFIRMED Confirmed by Gabriel Lin ([id number]), web editor CARLOTA SUTTON ([id number]) on 06/01/2025 1:27:31 PM Referred By: Confirmed By: Gabriel Lin
--- NOTE | 2025-06-01 08:47 | PN.HOSP_ITS ---
Reason for Visit Chief Complaint: Chest pain Subjective Subjective Patient is an 80-year-old male admitted with chest pain Objective Data Objective Data Vital Signs: Vital Signs Temp Pulse Resp BP Pulse Ox O2 Del Method O2 Flow Rate 97.0 F L 75 16 120/57 L 93 Room Air 2 06/01/25 08:27 06/01/25 08:27 06/01/25 08:27 06/01/25 08:27 06/01/25 08:27 06/01/25 08:31 06/01/25 02:30 Oxygen Flow Rate (L/min) 2 Oxygen Delivery Method Room Air Weight: 114 kg Body Mass Index (BMI) 33.1 Intake & Output: Intake and Output for Last 24 Hours 05/30/25 05/31/25 06/01/25 23:59 23:59 23:59 Intake Total 480 / 480 Output Total 350 / 350 500 / 500 Balance 130 / 130 -500 / -500 Lab / Micro Data 06/01/25 04:58 06/01/25 04:58 Labs: Laboratory Results - last 24 hr 05/31/25 11:13: WBC 10.1, RBC 5.54, Hgb 15.3, Hct 44.8, MCV 80.9, MCH 27.6, MCHC 34.2, RDW Std Deviation 45.4 H, RDW Coeff of Lucia 15.5 H, Plt Count 300, MPV 10.7, Immature Gran % (Auto) 0.600, Neut % (Auto) 70.0, Lymph % (Auto) 17.4 L, Sunflower % (Auto) 9.6, Eos % (Auto) 2.0, Baso % (Auto) 0.4, Absolute Neuts (auto) 7.1, Absolute Lymphs (auto) 1.76, Nucleated RBC % 0, D-Dimer Quant (PE/DVT) 0.31, Sodium 135, Potassium 4.1, Chloride 100, Carbon Dioxide 20.0 L, Anion Gap 15, BUN 25 H, Creatinine 0.99, Estim Creat Clear Calc 66.13, Est GFR (MDRD) Non- Af 77, BUN/Creatinine Ratio 25.2 H, Glucose 164 H, Calcium 9.5, Troponin T High Sens 68 H* D, NT pro BNP II 121 05/31/25 11:56: ESR 40 H, C-React Prot Ext Range < 3.00 05/31/25 13:14: Troponin T Hi Sens 2 Hr 59 H* 05/31/25 15:39: Troponin T Hi Sens 4Hr 53 H 05/31/25 18:00: POC Glucose 168 H 05/31/25 20:53: POC Glucose 178 H 06/01/25 01:25: POC Glucose 163 H 06/01/25 04:58: WBC 11.8 H, RBC 5.35, Hgb 14.7, Hct 43.6, MCV 81.5, MCH 27.5, MCHC 33.7, RDW Std Deviation 46.3 H, RDW Coeff of Lucia 15.6 H, Plt Count 264, MPV 10.1, Sodium 136, Potassium 4.2, Chloride 102, Carbon Dioxide 22.2, Anion Gap 12, BUN 25 H, Creatinine 1.02, Estim Creat Clear Calc 75.15, Est GFR (MDRD) Non- Af 74, BUN/Creatinine Ratio 24.7 H, Glucose 148 H, Calcium 9.3 Micro: Microbiology 05/31/25 17:35 Mucosa - Nasopharyngeal Respiratory Panel (PCR) - Final Radiography Diagnostic Testing: Radiology Impression Chest X-Ray 05/31/25 12:00 IMPRESSION: Stable mild cardiomegaly with pulmonary vascular congestion and interstitial lung disease. Reading Location: [facility] Physical Exam Narrative GENERAL: cooperative HEENT: Atraumatic; normocephalic EYES; Anicteric, Normal Conjunctiva NECK; supple, normal thyroid, RESPIRATORY: Diminished to auscultation CARDIOVASCULAR: Regular S1 S2, GI: soft, normoactive bowel sounds, : No Renal angle tenderness; EXTREMITIES: No edema, no clubbing, MUSCULOSKELETAL: no muscle wasting NEURO: Awake; no lateralizing signs. SKIN: No Rash PSYCH; Flat affect Assessment & Plan Assessment/Plan (1) Chest pain: (2) Elevated troponin: PLAN: Plan Patient is an 80-year-old male admitted with chest pain 1. Chest pain patient - Patient pain did increase with deep breath. CRP was however negative. Admitted to monitored bed serial cardiac enzymes ordered. Repeat echo ordered to rule out pericarditis consult placed to cardiology. Also ordered D-dimer which came back at 0.31 2. Diabetes mellitus type II -patient's oral hypoglycemics held. Placed on long acting insulin, Accu-Cheks a.c. and at bedtime and covered with sliding scale insulin 3. GERD – Patient is on Pepcid Carla 4. BPH with lower urinary obstructive symptoms - Patient treated with tamsulosin 5. Obstruct sleep apnea – Patient is on CPAP at night 6. Dyslipidemia –Patient is on statin therapy, continued at home dose 7. Hypertension – Blood pressure controlled, home medications continued with dose adjustment as needed 8. Nonobstructive coronary artery disease – Remains stable 9. Paroxysmal atrial fibrillation – Rate controlled on carvedilol systemic anticoagulation with apixaban 10. DVT prophylaxis Patient is on apixaban Time spent in the patient's overall evaluation,decision-making process, review of diagnostic data, adjustment of management, discussion with other providers, nursing nursing and ancillary staff involved in patient's care documentation,40 Minutes Charges/Coding Visit Charges Inpatient E&M: 14345 Subs Hosp L2
--- NOTE | 2025-06-01 10:00 | EKG12_ITS ---
Test Reason : CP Blood Pressure : */* mmHG Vent. Rate : 80 BPM Atrial Rate : 80 BPM P-R Int : 216 ms QRS Dur : 156 ms QT Int : 422 ms P-R-T Axes : 6 -73 14 degrees QTcB Int : 486 ms Sinus rhythm with 1st degree A-V block with occasional Premature ventricular complexes Right bundle branch block Left anterior fascicular block Bifascicular block Abnormal ECG When compared with ECG of 01-Jun-2025 05:32, MANUAL COMPARISON REQUIRED DATA IS UNCONFIRMED Confirmed by Gabriel Lin ([id number]), photographic editor ENID CLINTON ([id number]) on 06/02/2025 5:47:59 AM Referred By: MICHELL Confirmed By: Gabriel Lin
--- NOTE | 2025-06-01 10:12 | CON.PCM.CA_ITS ---
Assessment & Plan Assessment/Plan (1) Chest pain: QUALIFIERS: Chest pain type: chest pain on breathing Qualified Code(s): R07.1 - Chest pain on breathing PLAN: Patient's chest discomfort is classically pleuritic. I do not feel this represents coronary ischemia. His cardiac enzymes are minimally elevated at 68, 59, and 53. He had a recent negative stress test April 30, 2025. I do not believe that any further cardiovascular evaluation is indicated at this point in time. (2) Aortic stenosis: QUALIFIERS: Cardiac valve disease etiology: nonrheumatic Q ualified Code(s): I35.0 - Nonrheumatic aortic (valve) stenosis PLAN: Patient has a history of moderate aortic stenosis by echocardiogram April 2025. Is difficult to auscultate given his body habitus. This should be monitored and through the outpatient setting on a yearly basis and as needed. (3) History of atrial fibrillation: PLAN: Patient has a history of paroxysmal atrial fibrillation. Currently he is in sinus rhythm on telemetry. He is on Eliquis 5 mg twice daily which is the appropriate dosing given his normal creatinine and his weight with the age of 80. The patient should be continued on his home medications with the Eliquis carvedilol and diltiazem. She should also be maintained on the flecainide 100 mg twice daily. The patient continue to follow-up with his primary seismograph recorder per previously arranged appointments. PLAN: Plan 1. I do not feel that further cardiovascular evaluation is indicated at this point in time. 2. The patient should be continued on his same cardiovascular medications as he was on in the outpatient setting. 3. Patient should follow-up with his primary seismograph recorder per his previous arranged appointments after discharge. HPI Consult Data Date of Consult: 06/01/25 HPI Narrative Reason for Consultation: Chest pain HPI Narrative: INGRIS BALBUENA, is a 80 M who presents with several hours of pleuritic chest discomfort. He denies any URI type symptoms or recent cough to me. The pain is definitely pleuritic it is extremely intense when he takes a deep breath. Troponins were 68 and 59. 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 He denies missing any doses. Patient denies any lower extremity edema. He had a recent echocardiogram April 2025 that showed mild to moderate aortic stenosis and ejection fraction of 60%. Echo was repeated as a limited echo today which shows an EF of 65% normal RV. There was no Doppler performed and there was limited excursion noted on the aortic valve consistent with his mild to moderate . The patient also has obstructive sleep apnea and is on CPAP. The patient carries a history of paroxysmal atrial fibrillation his telemetry today shows normal sinus rhythm at 73 bpm. His ECG on arrival showed normal sinus rhythm with a first-degree AV block and old inferior wall infarct and a right bundle branch block which was not new. [facility] Medical History History of CAD (coronary artery disease) Paroxysmal atrial fibrillation Chronic pain Kidney stones GERD (gastroesophageal reflux disease) Non-smoker Diastolic dysfunction Dyspnea Diabetes Sleep apnea Atrial fibrillation Cancer Walker as ambulation aid Arthritis Prostate disease Complete edentulism, class III Gastric reflux CPAP (continuous positive airway pressure) dependence History of pain when walking History of edema History of echocardiogram History of stress test Cardiology follow-up encounter Blindness Bladder cancer Restrictive airway disease Morbid obesity Pneumonia due to COVID-19 virus Left lower lobe pneumonia Acute respiratory failure with hypoxia Wears hearing aid Wears glasses Insulin dependent diabetes mellitus Psoriasis High cholesterol Restless legs Back pain Injury of back Dietary restriction Former smoker Shortness of breath on exertion Hypertension Right bundle branch 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 Nonobstructive atherosclerosis of coronary artery Obesity BPH (benign prostatic hyperplasia) Hyperlipidemia Essential (primary) hypertension Atrial fibrillation with RVR (02/05/21) Home Medications Medication Instructions Recorded Last Taken Type metformin 500 mg tablet,extended 1,000 mg PO BID blood sugar 10/24/21 05/30/25 History release 24 hr albuterol sulfate 90 mcg/actuation 1 inh inhalation Q6 H PRN SOB #8.5 11/30/21 Unknown Rx aerosol inhaler grams finasteride 5 mg tablet 5 mg PO DAILY bph 10/27/22 0 05/30/25 History famotidine 20 mg tablet 20 mg PO BID reflux 09/22/23 05/30/25 History insulin glargine 100 unit/mL (3 40 unit subcut .COMPLE X diabetes 09/22/23 05/27/25 History mL) subcutaneous pen (Basaglar KwikPen U-100 Insulin) turmeric root extract 500 mg 1,000 mg PO DAILY viatmin 10/24/23 05/30/25 History capsule diltiazem HCl 120 mg 120 mg PO DAILY heart 05/30/25 History capsule,extended release 24 hr (Cartia XT) tamsulosin 0.4 mg capsule 0.4 mg PO BID bph 07/10/24 0 05/30/25 History cholecalciferol (vitamin D3) 50 2,000 unit PO DAILY myles pplement 07/22/24 05/30/25 History mcg (2,000 unit) capsule (Vitamin D3) solifenacin 10 mg tablet 10 mg PO DAILY bladder 07/2205/30/25 History empagliflozin 25 mg tablet 25 mg PO DAILY diabetes #30 tabs 07/25/24 05/30/25 Rx (Jardiance) flecainide 100 mg tablet 100 mg PO Q12H heart #180 ta bs 08/13/24 05/30/25 Rx atorvastatin 20 mg tablet 20 mg PO DAILY cholesterol 1 11/02/23 05/30/25 History spironolactone 25 mg tablet 25 mg PO DAILY diuretic #3 0 tabs 09/23/24 05/30/25 Rx isosorbide mononitrate 30 mg 30 mg PO DAILY heart #90 tabs 10/22/24 05/30/25 Rx tablet,extended release 24 hr insulin aspart 26 unit subcut TID diabetes 01/19/25 05/30/25 History (niacinamide)(U-100) 100 unit/mL(3 mL) subcutaneous pen (Fiasp FlexTouch U-100 Insulin) mecobalamin (vitamin B12) 1,000 1,000 mcg PO DAILY vit cottrell 01/19/25 05/30/25 History mcg chewable tablet ferrous gluconate 324 mg (37.5 mg 324 mg PO DAILY 30 d ays 04/30/25 05/30/25 Rx iron) tablet furosemide 40 mg tablet (Lasix) 40 mg PO PRN 05/22/25 05/30/25 History apixaban 5 mg tablet (Eliquis) 5 mg PO BID BLOOD THINN ER 05/31/25 05/30/25 History carvedilol 25 mg tablet 25 mg PO BID 05/31/25 History Allergy/AdvReac Type Severity Reaction Status Date / Time amoxicillin Allergy Rash Verified 05/31/25 11:08 Family History Sister Colon cancer Brother Diabetes Mother Diabetes Heart disease Cancer Father Heart disease Cancer Diabetes Surgical History Bladder disease Hx of right cataract extraction Hx of colonoscopy Hx of transurethral resection of prostate H/O wrist surgery History of left heart catheterization (02/07/21) Hx of umbilical hernia repair Hx of cholecystectomy Status post surgical manipulation of ankle joint H/O hemorrhoidectomy Social History household members: spouse Smoking Status: Former smoker how long ago did patient quit smokin years ago alcohol intake: never substance use type: does not use caffeine: Yes Type: coffee Number of servings: 1 ROS Constitutional Constitutional: Reports as per HPI Eyes Eyes: Reports systems reviewed and no addt'l complaints, except as documented ENT HEENT: Reports systems reviewed and no addt'l complaints, except as documented Cardiovascular Cardiovascular: Reports as per HPI Respiratory/Chest Respiratory/Chest: Reports as per HPI Gastrointestinal Gastrointestinal: Reports systems reviewed and no addt'l complaints, except as documented Genitourinary Genitourinary: Reports systems reviewed and no addt'l complaints, except as documented Musculoskeletal Musculoskeletal: Reports systems reviewed and no addt'l complaints, except as documented Integumentary Integumentary: Reports systems reviewed and no addt'l complaints, except as documented Neurologic Neurologic: Reports systems reviewed and no addt'l complaints, except as documented Psychiatric Psychiatric: Reports systems reviewed and no addt'l complaints, except as documented Endocrine Endocrinology: Reports systems reviewed and no addt'l complaints, except as documented Hematologic/Lymphatic Hematologic/Lymphatic: Reports as per HPI Allergic/Immunologic Allergic/Immunologic: Reports systems reviewed and no addt'l complaints, except as documented Physical Exam Const alert and oriented x3 HEENT normocephalic Eyes EOMs intact bilaterally Neck no JVD and no carotid bruits Chest inspection of chest normal Resp normal respiratory effort Resp Narrative: Significant pain with deep breaths. Auscultation: crackles bilateral base Cardio Rate: regular rate Rhythm: regular rhythm Heart Sounds: S1 normal, S2 normal and murmur systolic II/ harsh (Difficult to auscultate due to increased AP diameter.); Negative for click or gallop Extremity no pedal edema Neuro Neuro Narrative: Alert and oriented x 3 Psych mental status grossly normal Charges/Coding Visit Charges Inpatient E&M: 07840 Init Hosp L2 Objective Data Vital Signs: Vital Signs Temp Pulse Resp BP Pulse Ox O2 Del Method O2 Flow Rate 97.0 F L 75 16 120/57 L 93 Room Air 2 06/01/25 08:27 06/01/25 08:27 06/01/25 08:27 06/01/25 08:27 06/01/25 08:27 06/01/25 08:31 06/01/25 02:30 Oxygen Flow Rate (L/min) 2 Oxygen Delivery Method Room Air Weight: 251 lb 5.231 oz Body Mass Index (BMI) 33.1 Intake & Output: Intake and Output for Last 24 Hours 05/30/25 05/31/25 06/01/25 23:59 23:59 23:59 Intake Total 480 / 480 Output Total 350 / 350 500 / 500 Balance 130 / 130 -500 / -500 Lab / Micro Data Attestation: I reviewed the patient's lab results. 06/01/25 04:58 06/01/25 04:58 Labs: Laboratory Results - last 24 hr 05/31/25 11:13: WBC 10.1, RBC 5.54, Hgb 15.3, Hct 44.8, MCV 80.9, MCH 27.6, MCHC 34.2, RDW Std Deviation 45.4 H, RDW Coeff of Lucia 15.5 H, Plt Count 300, MPV 10.7, Immature Gran % (Auto) 0.600, Neut % (Auto) 70.0, Lymph % (Auto) 17.4 L, Coles % (Auto) 9.6, Eos % (Auto) 2.0, Baso % (Auto) 0.4, Absolute Neuts (auto) 7.1, Absolute Lymphs (auto) 1.76, Nucleated RBC % 0, D-Dimer Quant (PE/DVT) 0.31, Sodium 135, Potassium 4.1, Chloride 100, Carbon Dioxide 20.0 L, Anion Gap 15, BUN 25 H, Creatinine 0.99, Estim Creat Clear Calc 66.13, Est GFR (MDRD) Non- Af 77, BUN/Creatinine Ratio 25.2 H, Glucose 164 H, Calcium 9.5, Troponin T High Sens 68 H* D, NT pro BNP II 121 05/31/25 11:56: ESR 40 H, C-React Prot Ext Range < 3.00 05/31/25 13:14: Troponin T Hi Sens 2 Hr 59 H* 05/31/25 15:39: Troponin T Hi Sens 4Hr 53 H 05/31/25 18:00: POC Glucose 168 H 05/31/25 20:53: POC Glucose 178 H 06/01/25 01:25: POC Glucose 163 H 06/01/25 04:58: WBC 11.8 H, RBC 5.35, Hgb 14.7, Hct 43.6, MCV 81.5, MCH 27.5, MCHC 33.7, RDW Std Deviation 46.3 H, RDW Coeff of Lucia 15.6 H, Plt Count 264, MPV 10.1, Sodium 136, Potassium 4.2, Chloride 102, Carbon Dioxide 22.2, Anion Gap 12, BUN 25 H, Creatinine 1.02, Estim Creat Clear Calc 75.15, Est GFR (MDRD) Non- Af 74, BUN/Creatinine Ratio 24.7 H, Glucose 148 H, Calcium 9.3 Micro: Microbiology 05/31/25 17:35 Mucosa - Nasopharyngeal Respiratory Panel (PCR) - Final Rhythm Strip Rhythm Strip: Sinus Rhythm Rate: 73 Cardiology Labs/Tests 05/31/25 11:13: WBC 10.1, RBC 5.54, Hgb 15.3, Hct 44.8, MCV 80.9, MCH 27.6, MCHC 34.2, Plt Count 300, MPV 10.7, Immature Gran % (Auto) 0.600, Neut % (Auto) 70.0, Lymph % (Auto) 17.4 L, Coles % (Auto) 9.6, Eos % (Auto) 2.0, Baso % (Auto) 0.4, Absolute Neuts (auto) 7.1, Nucleated RBC % 0, D-Dimer Quant (PE/DVT) 0.31, Sodium 135, Potassium 4.1, Chloride 100, Carbon Dioxide 20.0 L, Anion Gap 15, B UN 25 H, Creatinine 0.99, Est GFR (MDRD) Non-Af 77, BUN/Creatinine Ratio 25.2 H, Glucose 164 H, Calcium 9.5 06/01/25 04:58: WBC 11.8 H, RBC 5.35, Hgb 14.7, Hct 43.6, MCV 81.5, MCH 27.5, MCHC 33.7, Plt Count 264, MPV 10.1, Sodium 136, Potassium 4.2, Chloride 102, Carbon Dioxide 22.2, Anion Gap 12, BUN 25 H, Creatinine 1.02, Est GFR (MDRD) Non-Af 74, BUN/Creatinine Ratio 24.7 H, Glucose 148 H, Calcium 9.3 Rhythm: EKG: ECHO: Stress Test: Cardiac Cath: PCI: CT Surgery: Holter monitor: EPS: PPM: CXR: Chest CT Scan: Radiography Diagnostic Testing: Radiology Impression Chest X-Ray 05/31/25 12:00 IMPRESSION: Stable mild cardiomegaly with pulmonary vascular congestion and interstitial lung disease. Reading Location: [facility] Echocardiogram 05/31/25 15:00 Interpretation Summary Mild concentric left ventricular hypertrophy. The left ventricular ejection fraction is 65 %. Stage I diastolic dysfunction with elevated left atrial filling pressures. The left atrium is mildly enlarged. Mild (1+) mitral valve insufficiency. Mildly calcified and thickened aortic valve leaflets. Restricted leaflet excursion. No Doppler available. Ordering Physician: Chilango Wheeler Performed By: Randi Villagran RDCS Risk Score for UA/STEMI Assesmment (YES = 1) Risk Stratification Applicable: Yes Age > or = 65: Yes > or = 3 CAD risk factors (HTN, Hypercholesterolemia, Diabetes, family hx, current smoker): No Known CAD (Stenosis > or = 50%): Yes ASA used in past 7 days: No Severe angina (> or = 2 episodes in 24 hrs): No EKG ST change > or = 0.5mm: No Positive cardiac markers: Yes Score MARK Risk Score of mortality/ recurrent ischemic event over the next 14 days: 3 = 13.2% Intermediate Risk
[2025-06-01 11:17] VITALS: BP 121/86; PULSE 84; RESP 16; TEMP 36.9; O2SAT 95
--- NOTE | 2025-06-01 11:19 | NURSING ---
meds given late d/t waiting on cardiology to see pt
[2025-06-01] MEDS: Tolterodine Tartrate 4 MG CAP.SA PO (11:21)
[2025-06-01] MEDS: APIXABAN 5 MG TABLET PO (11:21)
[2025-06-01] MEDS: Insulin Glargine-YFGN 100 UNIT/ML Pen 30 UNIT SC (11:23)
[2025-06-01] MEDS: Cholecalciferol (VIT D3) 25 MCG TABLET (1,000 UNITS) 50 MCG PO (11:24)
--- NOTE | 2025-06-01 13:42 | CHAPLAIN ---
Type of Pastoral Visit _x__ Initial Visit ___ Follow-up Visit ___ On-call Visit ___ General Patient Visit ___ Spiritual Assessment ___ Family Conference ___ Bereavement ___ Rapid Response ___ Code Blue ___ Other (describe below) Pastoral Care Referral From _x__ Patient ___ Family ___ Nurse ___ Physician ___ Political Director ___ Corporate Fitness Program Coordinator ___ Other (describe below) Sacrament/Intervention _x__ Active listening ___ Anointing ___ Scientology ___ Bereavement ___ Communion ___ Stephanie exploration ___ _x__ Life review _x__ Prayer ___ Reconciliation ___ Sacrament of Sick _x__ Supportive presence ___ Wedding ___ Other (describe below) Pastoral Comments patient acknowledges his health challenges in recent months; pt is disappointed that he is unable to work or be active but tries to do a few things; 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
--- NOTE | 2025-06-01 14:51 | CASEMGMT ---
ADLER Met with patient to complete ADLER form. ADLER form and its content were verbally explained and patient's questions were answered to the best of my ability. Patient voiced understanding and signed ADLER form. Patient provided a copy of signed ADLER form and original placed in patient's chart. Patient had no further questions. Julia Gonzalez, Discharge Planning Asst
[2025-06-01] MEDS: Insulin Glargine-YFGN 100 UNIT/ML Pen 10 UNIT SC (15:09)
--- NOTE | 2025-06-01 15:20 | DS.PCM_ITS ---
Providers Date of Admission: 05/31/25 Date of Discharge: 06/01/25 Primary Care Physician: Dr. Jeff Subramanian MD Consultations 05/31/25 17:01 Consult: Cardiology Routine Consulting Provider: Lucía Pulido Reason for Consult: recurrent chest pain w/ elevated trops EMERGENT Consult: No MD Notified: Yes Date Notified: 05/31/25 Time Notified: 17:19 Method of Notification: Verbal Reason For Visit: CHEST PAIN Diagnosis Discharge Diagnosis (1) Chest pain: Status: Acute Code(s): R07.9 - Chest pain, unspecified Qualifiers: Chest pain type: chest pain on breathing Qualified Code(s): R07.1 - Chest pain on breathing (2) Aortic stenosis: Status: Acute Code(s): I35.0 - Nonrheumatic aortic (valve) stenosis Qualifiers: Cardiac valve disease etiology: nonrheumatic Qualified Code(s): I35.0 - Nonrheumatic aortic (valve) stenosis (3) History of atrial fibrillation: Status: Acute Code(s): Z86.79 - Personal history of other diseases of the circulatory system Plan Patient is an 80-year-old male admitted with chest pain 1. Chest pain suspected to be secondary to pleurisy - Patient pain did increase with deep breath. CRP was however negative. Admitted to monitored bed serial cardiac enzymes ordered. Repeat echo ordered to rule out pericarditis consult placed to cardiology. Also ordered D-dimer which came back at 0.31 – Patient was seen in consultation by Dr. Lin with cardiology recommended no further treatment 2. Diabetes mellitus type II -patient's oral hypoglycemics held. Placed on long acting insulin, Accu-Cheks a.c. and at bedtime and covered with sliding scale insulin 3. GERD – Patient is on Pepcid, Pepcid discontinued prescription written for Protonix 4. BPH with lower urinary obstructive symptoms - Patient treated with tamsulosin 5. Obstruct sleep apnea – Patient is on CPAP at night 6. Dyslipidemia –Patient is on statin therapy, continued at home dose 7. Hypertension – Blood pressure controlled, home medications continued with dose adjustment as needed 8. Nonobstructive coronary artery disease – Remains stable 9. Paroxysmal atrial fibrillation – Rate controlled on carvedilol systemic anticoagulation with apixaban 10. DVT prophylaxis Patient is on apixaban Time spent in the patient's overall evaluation,decision-making process, review of diagnostic data, adjustment of management, discussion with other providers, nursing nursing and ancillary staff involved in patient's care documentation,40 Minutes Medications at Discharge Home Medications metformin 500 mg tablet,extended release 24 hr 1,000 mg PO BID blood sugar 10/24/21 albuterol sulfate 90 mcg/actuation aerosol inhaler 1 inh inhalation Q6H PRN SOB #8.5 grams 11/30/21 finasteride 5 mg tablet 5 mg PO DAILY bph 10/27/22 insulin glargine 100 unit/mL (3 mL) subcutaneous pen (Basaglar KwikPen U-100 Insulin) 40 unit subcut .COMPLEX diabetes 09/22/23 turmeric root extract 500 mg capsule 1,000 mg PO DAILY viatmin 10/24/23 diltiazem HCl 120 mg capsule,extended release 24 hr (Cartia XT) 120 mg PO DAILY heart 06/08/24 tamsulosin 0.4 mg capsule 0.4 mg PO BID bph 07/10/24 cholecalciferol (vitamin D3) 50 mcg (2,000 unit) capsule (Vitamin D3) 2,000 unit PO DAILY supplement 07/22/24 solifenacin 10 mg tablet 10 mg PO DAILY bladder 07/22/24 empagliflozin 25 mg tablet (Jardiance) 25 mg PO DAILY diabetes #30 tabs 07/25/24 flecainide 100 mg tablet 100 mg PO Q12H heart #180 tabs 08/13/24 atorvastatin 20 mg tablet 20 mg PO DAILY cholesterol 09/01/24 spironolactone 25 mg tablet 25 mg PO DAILY diuretic #30 tabs 09/23/24 isosorbide mononitrate 30 mg tablet,extended release 24 hr 30 mg PO DAILY heart #90 tabs 10/22/24 insulin aspart (niacinamide)(U-100) 100 unit/mL(3 mL) subcutaneous pen (Fiasp FlexTouch U-100 Insulin) 26 unit subcut TID diabetes 01/19/25 mecobalamin (vitamin B12) 1,000 mcg chewable tablet 1,000 mcg PO DAILY vitamin 01/19/25 ferrous gluconate 324 mg (37.5 mg iron) tablet 324 mg PO DAILY 30 days 04/30/25 furosemide 40 mg tablet (Lasix) 40 mg PO PRN 05/22/25 apixaban 5 mg tablet (Eliquis) 5 mg PO BID BLOOD THINNER 05/31/25 carvedilol 25 mg tablet 25 mg PO BID 05/31/25 pantoprazole 40 mg tablet,delayed release (Protonix) 40 mg PO DAILY #30 tabs 06/01/25 Physical Exam Narrative GENERAL: cooperative HEENT: Atraumatic; normocephalic EYES; Anicteric, Normal Conjunctiva NECK; supple, normal thyroid, RESPIRATORY: Diminished to auscultation CARDIOVASCULAR: Regular S1 S2, GI: soft, normoactive bowel sounds, : No Renal angle tenderness; EXTREMITIES: No edema, no clubbing, MUSCULOSKELETAL: no muscle wasting NEURO: Awake; no lateralizing signs. SKIN: No Rash PSYCH; Flat affect Weight / BMI Weight Weight: 114 kg Body Mass Index (BMI) 33.1 ABG / Lab / Microbiology Data 06/01/25 04:58 06/01/25 04:58 Laboratory: Laboratory Results - last 24 hr 05/31/25 11:56: ESR 40 H, C-React Prot Ext Range < 3.00 05/31/25 15:39: Troponin T Hi Sens 4Hr 53 H 05/31/25 18:00: POC Glucose 168 H 05/31/25 20:53: POC Glucose 178 H 06/01/25 01:25: POC Glucose 163 H 06/01/25 04:58: WBC 11.8 H, RBC 5.35, Hgb 14.7, Hct 43.6, MCV 81.5, MCH 27.5, MCHC 33.7, RDW Std Deviation 46.3 H, RDW Coeff of Lucia 15.6 H, Plt Count 264, MPV 10.1, Sodium 136, Potassium 4.2, Chloride 102, Carbon Dioxide 22.2, Anion Gap 12, BUN 25 H, Creatinine 1.02, Estim Creat Clear Calc 75.15, Est GFR (MDRD) Non- Af 74, BUN/Creatinine Ratio 24.7 H, Glucose 148 H, Calcium 9.3 06/01/25 08:37: POC Glucose 175 H 06/01/25 10:58: POC Glucose 183 H 06/01/25 14:42: POC Glucose 327 H Microbiology: Microbiology 05/31/25 17:35 Mucosa - Nasopharyngeal Respiratory Panel (PCR) - Final Radiography Diagnostic Testing: Radiology Impression Echocardiogram 05/31/25 15:00 Interpretation Summary Mild concentric left ventricular hypertrophy. The left ventricular ejection fraction is 65 %. Stage I diastolic dysfunction with elevated left atrial filling pressures. The left atrium is mildly enlarged. Mild (1+) mitral valve insufficiency. Mildly calcified and thickened aortic valve leaflets. Restricted leaflet excursion. No Doppler available. Ordering Physician: Chilango Wheeler Performed By: Randi Villagran RDCS D/C Instructions DC O2, CPAP, BIPAP Needs Home O2 Discharge instructions: No Meaningful Use Info Meaningful Use Meaningful Use Diagnoses (Choose all that apply): None applicable Discharge Plan Admission Admit Date/Time: 05/31/25 14:56 Attending Provider: Sachin Kebede Primary Care Provider: Jeff Subramanian Consulting Providers: Lucía Pulido; Chilango Wheeler Discharge Orders/Prescriptions Prescriptions: New pantoprazole [Protonix] 40 mg tablet,delayed release (DR/EC) 40 mg PO DAILY Qty: 30 0RF Continued metformin 500 mg tablet extended release 24 hr 1,000 mg PO BID albuterol sulfate 90 mcg/actuation HFA aerosol inhaler 1 inh INHALATION Q6H PRN (Reason: SOB) Qty: 8.5 6RF turmeric root extract 500 mg capsule 1,000 mg PO DAILY flecainide 100 mg tablet 100 mg PO Q12H Qty: 180 3RF spironolactone 25 mg tablet 25 mg PO DAILY Qty: 30 11RF insulin glargine [Basaglar KwikPen U-100 Insulin] 100 unit/mL (3 mL) insulin pen 40 unit subcut .COMPLEX Patient Comments: HAS NOT HAD FOR A FEW DAYS BECAUSE HE IS OUT AT HOME Rx Instructions: 40 units subcutaneously QAM; solifenacin 10 mg tablet 10 mg PO DAILY cholecalciferol (vitamin D3) [Vitamin D3] 50 mcg (2,000 unit) capsule 2,000 unit PO DAILY Jardiance 25 mg Tablet 25 mg PO DAILY Qty: 30 2RF Fiasp FlexTouch U-100 Insulin 100 unit/mL (3 mL) insulin pen 26 unit subcut TID Rx Instructions: 20-26 U PER DAUGHTER BASED ON WHAT PT EATS mecobalamin (vitamin B12) 1,000 mcg tablet,chewable 1,000 mcg PO DAILY carvedilol 25 mg tablet 25 mg PO BID Eliquis 5 mg tablet 5 mg PO BID diltiazem HCl [Cartia XT] 120 mg capsule,extended release 24hr 120 mg PO DAILY tamsulosin 0.4 mg capsule 0.4 mg PO BID atorvastatin 20 mg tablet 20 mg PO DAILY ferrous gluconate 324 mg (37.5 mg iron) tablet 324 mg PO DAILY 30 Days 3RF finasteride 5 mg tablet 5 mg PO DAILY isosorbide mononitrate 30 mg tablet extended release 24 hr 30 mg PO DAILY Qty: 90 3RF furosemide [Lasix] 40 mg tablet 40 mg PO PRN Discontinued famotidine 20 mg tablet 20 mg PO BID Patient Comments: take 1 tablet by mouth twice a day Referrals / Follow Up: Jeff Subramanian MD [Primary Care Provider] - Disposition Disposition (needs filled in before D/C Order can be placed): Home, Self Care Charges/Coding Visit Charges Inpatient E&M: 74333 Disch Hosp >30min
[2025-06-01 15:54] VITALS: BP 116/66; PULSE 79; RESP 16; TEMP 36.6; O2SAT 93
== END 2025-06-01 17:24 | disposition home or self-care (01) ==
LOC: ED 15:09 → PCU 16:34
PROVIDERS: Admitting Provider Hospitalist; Emergency Provider Emergency Medicine; PCP Family Medicine; Visit Provider Internal Medicine
DX: R07.1 Chest pain on breathing (principal); J84.9 Interstitial pulmonary disease, unspecified; I48.0 Paroxysmal atrial fibrillation; Z79.4 Long term (current) use of insulin; E11.9 Type 2 diabetes mellitus without complications; I10 Essential (primary) hypertension; K21.9 Gastro-esophageal reflux disease without esophagitis; I95.9 Hypotension, unspecified; Z79.899 Other long term (current) drug therapy; E78.00 Pure hypercholesterolemia, unspecified; I08.0 Rheumatic disorders of both mitral and aortic valves; Z87.891 Personal history of nicotine dependence; Z79.84 Long term (current) use of oral hypoglycemic drugs; H91.90 Unspecified hearing loss, unspecified ear; I44.0 Atrioventricular block, first degree; I25.10 Atherosclerotic heart disease of native coronary artery without angina pectoris; I25.2 Old myocardial infarction; N40.1 Benign prostatic hyperplasia with lower urinary tract symptoms; G47.33 Obstructive sleep apnea (adult) (pediatric); I45.2 Bifascicular block; R94.31 Abnormal electrocardiogram [ECG] [EKG]; N13.8 Other obstructive and reflux uropathy; R06.00 Dyspnea, unspecified
CPT/HCPCS: 36415; 71045; 80048; 82962; 83880; 84484; 85025; 85027; 85379; 85652; 86140; 87633; 93005; 93308; 96374; 97802; 99221; 99285; A4216; G0378

== ENCOUNTER → 2025-06-12 | Outpatient (CLI) | payer MEDICARE, SELFPAY ==
[2025-06-12 13:40] LABS: Anion Gap 12 (5-15); BUN 22 mg/dL (4-19); BUN/Creat Ratio 17.0 RATIO (10-20); Calcium,Total 9.4 mg/dL (7.6-11.0); Carbon Dioxide 22.6 mmol/L (21.0-32.0); Chloride 102 mmol/L (98-108); Glucose 121 mg/dL (70-99); Potassium 4.6 mmol/L (3.3-5.1); Pro- Brain NATRIURETIC PEPTIDE 318 pg/mL (<=1800)
[2025-06-12 13:55] LABS: Magnesium 2.5 mg/dL (1.5-2.2)
[2025-06-12 14:51] LABS: Vitamin B12 > 4000 pg/mL (180-914); Vitamin D,25 Hydroxy 37.4 ng/mL (30-100)
== END | disposition home or self-care (01) ==
LOC: LAB 12:26
PROVIDERS: Student in an Organized Health Care Education/Training Program; PCP Family Medicine; Referring Provider Family Medicine; Visit Provider Family Medicine
DX: E66.811 Obesity, class 1 (principal); I50.20 Unspecified systolic (congestive) heart failure; E11.29 Type 2 diabetes mellitus with other diabetic kidney complication; R80.9 Proteinuria, unspecified; Z51.81 Encounter for therapeutic drug level monitoring; R06.02 Shortness of breath; R60.9 Edema, unspecified
CPT/HCPCS: 36415; 80048; 82306; 82607; 83036; 83735; 83880

== ENCOUNTER → 2025-07-08 | Outpatient (CLI) | payer MEDICARE, SELFPAY | END | disposition home or self-care (01) | LOC: PSN 12:54 | PROVIDERS: PCP Family Medicine; Referring Provider Nurse Practitioner Family; Visit Provider Nurse Practitioner Family | DX: J98.4 Other disorders of lung (principal); R06.02 Shortness of breath | CPT/HCPCS: 94060; 94726; 94729 ==

== ENCOUNTER → 2025-07-31 | Outpatient (CLI) | payer MEDICARE, SELFPAY ==
[2025-07-31 13:48] LABS: Creatinine, Urine (random) 111.00 mg/dL (39.00-259.00); Microalbumin,Random Urine 45.8 mg/L (<20 mg/L)
== END | disposition home or self-care (01) ==
PROVIDERS: PCP Family Medicine; Referring Provider Family Medicine; Visit Provider Student in an Organized Health Care Education/Training Program
DX: R55 Syncope and collapse (principal); I49.3 Ventricular premature depolarization; R80.9 Proteinuria, unspecified
CPT/HCPCS: 82043; 82570; 93225; 93226

== ENCOUNTER 2025-09-04 16:57 | Emergency (ER) | payer MEDICARE, SELFPAY ==
[2025-09-04 16:58] VITALS: BP 107/81; PULSE 55; RESP 14; TEMP 36.6; O2SAT 98
--- NOTE | 2025-09-04 17:38 | ED.VIS.BACK ---
HPI History of Present Illness Chief Complaint: Lower Extremity Injury Informant: patient and spouse/S.O. Onset/Context/Timing Onset: Days Context: Gradual Onset Quality: Sharp Location: Lumbar, Buttock and Left Leg Current Severity: Moderate Maximum Severity: Moderate Worsened by: improves with Movement Relieved by: Nothing Associated Symptoms Associated Symptoms: Radiation to Left Leg; Negative for Numbness, Tingling, Radiation to Right Leg, Fever, Abdominal Pain, Dysuria, Unable to Ambulate, Unable to Transfer, Urinary Retention, Urinary Incontinence, Constipation or Fecal Incontinence Narrative Narrative: 80-year-old male history of A-fib on Eliquis, diabetes. No prior back surgery. He had bilateral lower back pain and hip pain. Not radiating to his left leg. Over his thigh. No weakness. No numbness. No incontinence. Denies any recent fall or trauma. No prior back surgeries. He has been on prednisone without any relief. He denies any fever. Prior similar symptoms: No Recent Illness/Hospitalization: Yes [facility] Medical History History of CAD (coronary artery disease) Paroxysmal atrial fibrillation Chronic pain Kidney stones GERD (gastroesophageal reflux disease) Non-smoker Diastolic dysfunction Dyspnea Diabetes Sleep apnea Atrial fibrillation Cancer Walker as ambulation aid Arthritis Prostate disease Complete edentulism, class III Gastric reflux CPAP (continuous positive airway pressure) dependence History of pain when walking History of edema History of echocardiogram History of stress test Cardiology follow-up encounter Blindness Bladder cancer Restrictive airway disease Morbid obesity Pneumonia due to COVID-19 virus Left lower lobe pneumonia Acute respiratory failure with hypoxia Wears hearing aid Wears glasses Insulin dependent diabetes mellitus Psoriasis High cholesterol Restless legs Back pain Injury of back Dietary restriction Former smoker Shortness of breath on exertion Hypertension Right bundle branch 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 Nonobstructive atherosclerosis of coronary artery Obesity BPH (benign prostatic hyperplasia) Hyperlipidemia Essential (primary) hypertension Atrial fibrillation with RVR (02/05/21) Home Medications ?Medication ?Instructions ?Recorded ?Last Taken ?Type metformin 500 mg tablet,extended 1,000 mg PO BID blood sugar 10/24/21 05/30/25 History release 24 hr albuterol sulfate 90 mcg/actuation 1 inh inhalation Q6H PRN SOB #8.5 11/30/21 Unknown Rx aerosol inhaler grams finasteride 5 mg tablet 5 mg PO DAILY bph 10/27/22 05/30/25 History insulin glargine 100 unit/mL (3 40 unit subcut .COMPLEX diabetes 09/22/23 05/27/25 History mL) subcutaneous pen (Basaglar KwikPen U-100 Insulin) turmeric root extract 500 mg 1,000 mg PO DAILY viatmin 10/24/23 05/30/25 History capsule diltiazem HCl 120 mg 120 mg PO DAILY heart 06/08/24 05/30/25 History capsule,extended release 24 hr (Cartia XT) tamsulosin 0.4 mg capsule 0.4 mg PO BID bph 07/10/24 05/30/25 History cholecalciferol (vitamin D3) 50 2,000 unit PO DAILY supplement 07/22/24 05/30/25 History mcg (2,000 unit) capsule (Vitamin D3) solifenacin 10 mg tablet 10 mg PO DAILY bladder 07/22/24 05/30/25 History empagliflozin 25 mg tablet 25 mg PO DAILY diabetes #30 tabs 07/25/24 05/30/25 Rx (Jardiance) atorvastatin 20 mg tablet 20 mg PO DAILY cholesterol 09/01/24 05/30/25 History spironolactone 25 mg tablet 25 mg PO DAILY diuretic #30 tabs 09/23/24 05/30/25 Rx isosorbide mononitrate 30 mg 30 mg PO DAILY heart #90 tabs 10/22/24 05/30/25 Rx tablet,extended release 24 hr insulin aspart 26 unit subcut TID diabetes 01/19/25 05/30/25 History (niacinamide)(U-100) 100 unit/mL(3 mL) subcutaneous pen (Fiasp FlexTouch U-100 Insulin) mecobalamin (vitamin B12) 1,000 1,000 mcg PO DAILY vitamin 01/19/25 05/30/25 History mcg chewable tablet ferrous gluconate 324 mg (37.5 mg 324 mg PO DAILY 30 days 04/30/25 05/30/25 Rx iron) tablet furosemide 40 mg tablet (Lasix) 40 mg PO PRN 05/22/25 05/30/25 History apixaban 5 mg tablet (Eliquis) 5 mg PO BID BLOOD THINNER 05/31/25 05/30/25 History pantoprazole 40 mg tablet,delayed 40 mg PO DAILY #30 tabs 06/01/25 Unknown Rx release (Protonix) carvedilol 25 mg tablet 12.5 mg PO BID 06/11/25 Unknown History flecainide 100 mg tablet 100 mg PO Q12H heart #180 tabs 08/17/25 Unknown Rx hydrocodone-acetaminophen 5-325mg 1 tab PO Q4H PRN PRN Pain 7 days 09/04/25 Unknown Rx 5mg-325mg #16 TABLETS methylprednisolone 4 mg tablets in 4 mg PO UD ##1 09/04/25 Unknown Rx a dose pack Allergy/AdvReac Type Severity Reaction Status Date / Time amoxicillin Allergy Rash Verified 09/04/25 16:59 Family History Sister Colon cancer Brother Diabetes Mother Diabetes Heart disease Cancer Father Heart disease Cancer Diabetes Surgical History Bladder disease Hx of right cataract extraction Hx of colonoscopy Hx of transurethral resection of prostate H/O wrist surgery History of left heart catheterization (02/07/21) Hx of umbilical hernia repair Hx of cholecystectomy Status post surgical manipulation of ankle joint H/O hemorrhoidectomy Social History household members: spouse Smoking Status: Former smoker how long ago did patient quit smokin years ago alcohol intake: never substance use type: does not use caffeine: Yes Type: coffee Number of servings: 1 ROS ROS ED ROS Narrative Denies recent illness. Back pain. Constitutional Constitutional ED: Denies chills or fever(s) Eyes Eyes: Denies blurry vision ENT ENT ED: Denies ear pain Cardiovascular Cardiovascular: Denies chest pain Respiratory/Chest Respiratory/Chest: Denies dyspnea Gastrointestinal Gastrointestinal: Denies abdominal pain Genitourinary Genitourinary ED: Denies dysuria or hematuria Musculoskeletal Musculoskeletal: Reports back pain; Denies arthralgias, myalgias or neck pain Integumentary Denies abscess or Abrasions Neurologic Neurologic: Denies headache(s) Psychiatric Psychiatric: Denies anxiety or depression Endocrine Endocrinology: Denies cold intolerance Hematologic/Lymphatic Hematologic/Lymphatic: Reports lymphadenopathy Allergic/Immunologic Allergic/Immunologic ED: Denies mouth swelling, tongue swelling or urticaria EXAM Physical Exam Narrative Exam Narrative: 80-year-old male sitting upright in bed vital signs stable afebrile. No acute distress. Accompanied by his . H EENT exam pupils round react light. Moist mucous membranes. Neck nontender no lymphadenopathy. Lungs clear to auscultation bilaterally. Heart regular rhythm no murmur. Abdomen soft, nontender, nondistended, normal bowel sounds without peritoneal signs. No pulsatile mass. Moving all 4 extremities. Dorsi plantarflexion intact. No cauda equina no saddle anesthesia. Normal dorsi plantarflexion. Positive straight leg raise test on the left at about 30 degrees. Back there is no ecchymosis or bruising no redness or warmth. There is really not a lot of reproducible pain over a 0 lumbar spine or SI joint. Neurologically is awake alert. Answer questions following commands. Again good strength and sensation of both upper and lower extremities. Const Vital Signs: 09/04/25 16:58 Temperature 98 F Temperature Source Oral Pulse Rate 55 L Respiratory Rate 14 Blood Pressure 107/81 H Blood Pressure Mean 89 Pulse Ox 98 Oxygen Delivery Method Room Air MDM MDM MDM Narrative Medical decision making narrative: 80-year-old male atraumatic low back pain radiating to his left thigh and down his leg. No bowel or bladder incontinence. No numbness. Is consistent with either sciatica or pain from his lumbar spine with radiculopathy. He has good strength and sensation. No cauda equina. He will be started on a Medrol Dosepak. Mulino for pain. Outpatient follow-up with his primary care physician if not improving he may need an MRI. He does not meet criteria at this time because he has good strength and sensation. He will be given a Mulino prior to discharge placed on a Medrol Dosepak. Instructed to follow-up. Both he and his are comfortable to plan. Discharge Plan Triage Chief Complaint: Lower Extremity Injury ED Provider: Trung Faust Dx/Rx/DC Orders Clinical Impression: History of atrial fibrillation, Chronic anticoagulation, History of diabetes mellitus, Acute back pain with sciatica Instructions: ED Back Pain (Acute or Chronic), ED Sciatica Prescriptions: New methylprednisolone 4 mg tablets,dose pack 4 mg PO UD Qty: 1 0RF hydrocodone-acetaminophen 5-325 mg tablet 1 tab PO Q4H PRN PRN (Reason: Pain) 7 Days Qty: 16 0RF No Action metformin 500 mg tablet extended release 24 hr 1,000 mg PO BID albuterol sulfate 90 mcg/actuation HFA aerosol inhaler 1 inh INHALATION Q6H PRN (Reason: SOB) Qty: 8.5 6RF turmeric root extract 500 mg capsule 1,000 mg PO DAILY spironolactone 25 mg tablet 25 mg PO DAILY Qty: 30 11RF insulin glargine [Basaglar KwikPen U-100 Insulin] 100 unit/mL (3 mL) insulin pen 40 unit subcut .COMPLEX Patient Comments: HAS NOT HAD FOR A FEW DAYS BECAUSE HE IS OUT AT HOME Rx Instructions: 40 units subcutaneously QAM; solifenacin 10 mg tablet 10 mg PO DAILY cholecalciferol (vitamin D3) [Vitamin D3] 50 mcg (2,000 unit) capsule 2,000 unit PO DAILY Jardiance 25 mg Tablet 25 mg PO DAILY Qty: 30 2RF Fiasp FlexTouch U-100 Insulin 100 unit/mL (3 mL) insulin pen 26 unit subcut TID Rx Instructions: 20-26 U PER DAUGHTER BASED ON WHAT PT EATS mecobalamin (vitamin B12) 1,000 mcg tablet,chewable 1,000 mcg PO DAILY Eliquis 5 mg tablet 5 mg PO BID pantoprazole [Protonix] 40 mg tablet,delayed release (DR/EC) 40 mg PO DAILY Qty: 30 0RF carvedilol 25 mg tablet 12.5 mg PO BID diltiazem HCl [Cartia XT] 120 mg capsule,extended release 24hr 120 mg PO DAILY tamsulosin 0.4 mg capsule 0.4 mg PO BID atorvastatin 20 mg tablet 20 mg PO DAILY ferrous gluconate 324 mg (37.5 mg iron) tablet 324 mg PO DAILY 30 Days 3RF finasteride 5 mg tablet 5 mg PO DAILY isosorbide mononitrate 30 mg tablet extended release 24 hr 30 mg PO DAILY Qty: 90 3RF furosemide [Lasix] 40 mg tablet 40 mg PO PRN flecainide 100 mg tablet 100 mg PO Q12H Qty: 180 3RF Primary Care Provider: Jeff Subramanian Referrals: Jeff Subramanian MD [Primary Care Provider, Medical] - 5-7 Days Activity Restrictions/Additional Instructions: He will be on the steroid methylprednisolone which is also a Medrol Dosepak it will be tapered. It stronger than the prednisone. Take it daily as prescribed. Mulino which is hydrocodone for pain. 1 every 4 hours or as needed. The lotion even the better. Anytime you are taking pain medication make sure you are drinking plenty of fluids to prevent constipation. Foods and vegetables. Fiber. Stool softener as needed. The pain medication can constipate you. Do not drive a vehicle or drink alcohol with it. Follow-up with your doctor in 5 to 7 days to ensure you are improving if not you may need an MRI. Return to emergency department if intractable pain or you are feeling worse or you get leg weakness or bowel or bladder incontinence. Print Language: Cymro Disposition Disposition: Home, Self Care
--- OUTSIDE RECORDS SUMMARY | 2025-09-04 17:43 | XMS RPT_ITS | CCD ---
Author Organization [facility] Care Team Providers Care 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 Name Role Phone Mathieu Virgen MD Primary Care Provider [facility], Keti Unavailable [facility], Kaitlyn Unavailable Dr. Mathieu Virgen Primary Care Provider Dr. Mathieu Virgen Referring Provider Roof HOT PACKER, HOT PACKER-C Sergey Solares Attending Provider Dr. Marvin Reeves Attending Provider Dr. Marivn Reeves Referring Provider Dr. Marvin Reeves Other Provider Yovani HOT PACKER, ARSALAN-Lonnie Neri Attending Provider Dr. Mathieu Virgen Primary Care Provider Dr. Mathieu Virgen Referring Provider Roof HOT PACKER, HOT PACKER-C Sergey Solares Attending Provider Dr. Marvin Reeves Attending Provider Mathieu Virgen MD Primary Care Provider [facility], Keti Unavailable [facility], Kaitlyn Unavailable Mathieu Virgen MD Primary Care Provider [facility], Keti Unavailable [facility], Kaitlyn Unavailable Dr. Mathieu Virgen Primary Care Provider Dr. Mathieu Virgen Referring Provider Lauri HOT PACKER, HOT PACKERJosseline Solares Attending Provider Mathieu Virgen MD Primary Care Provider [facility], Keti Unavailable [facility], Kaitlyn Unavailable Dr. Mathieu Virgen Primary [...] Provider Dr. Mathieu Virgen Referring Provider Yovani HOT PACKER, EZRA Neri Attending Provider Dr. Mathieu Virgen Primary Care Provider [facility], Keti Unavailable Mathieu Virgen MD Primary Care Provider MELVIN BINGHAM Attending Unavailable MATHIEU VIRGEN Primary Care Unavailable [facility], Keti Unavailable [facility], Kaitlyn Unavailable Devyn PORCELAIN SLUSHER.Marlon MAYNARDy Unavailable Suppan PORCELAIN SLUSHER.CYBER SECURITY SYSTEMS ENGINEER, Julianna A Unavailable [phone] Suppan PORCELAIN SLUSHER.CYBER SECURITY SYSTEMS ENGINEER, Julianna A Unavailable [phone] Suppan PORCELAIN SLUSHER.CYBER SECURITY SYSTEMS ENGINEER, Julianna A Unavailable Dr. Mathieu Virgen MD Primary Care Provider Lauri HOT PACKER-CSergey Attending Provider Lauri ARRIAZA-CSergey Referring Provider Dr. [...] Care Provider Tierra Perdomo Attending Provider Renaldo ARRIAZA-Megan Fleming Attending Provider Dr. Mathieu Virgen MD Referring Provider Dr. Devante Ponce MD Attending Provider Dr. Abraham Tierney DO Attending Provider Dr. Abraham Tierney DO Emergency Provider Lauri ARRIAZA-CSergey Attending Provider Renaldo HOT PACKER-C, Megan Bean Referring Provider Marilynn SAMUEL, Dr. Aguilar Primary Care Provider Rujavi HOT PACKER-C, Megan Bean Attending Provider Renaldo HOT PACKER-C, Megan Bean Other Provider Pj PEDRO, Dr. Wong Attending Provider Marilynn SAMUEL, Dr. Aguilar Primary Care Provider Marilynn SAMUEL, Dr. Aguilar Referring Provider Rujavi HOT PACKER-C, Megan Bean Attending Provider Marilynn SAMUEL, Dr. Aguilar Attending Provider Pj PEDRO, Dr. Wong Attending Provider Marilynn SAMUEL, Dr. Aguilar Primary Care Provider [phone] Marilynn SAMUEL, Dr. Aguilar Referring Provider Dr. Yola Canales MD Referring Provider Unavailab alexandra Canales MD, Dr. Aceves Emergency Provider Unavailab le de Jose G DO, Dr. Stephenson Admit Provider Unavail able Prather DO, Dr. Stephenson Attending Provider Unav ailable Prather DO, Dr. Stephenson Other Provider Unavail able Dr. Chilango Wheeler DO Attending Provider Dr. Chilango Wheeler DO Other Provider Dr. Edgar Dee MD Attending Provider Unavailab Eduardo Alonso Attending Provider Dr. Mathieu Virgen MD Primary Care Provider Rufener HOT PACKER-C, Megan Bean Attending Provider Renaldo HOT PACKER-C, Megan Bean Referring Provider Marilynn SAMUEL, Dr. Aguilar Referring Provider Juan Carlos SAMUEL, Dr. Jordan Aguayo Attending Provider Prather DO, Dr. Stephenson Referring Provider Unav ailable Dr. Marcelo Hernandez DO Emergency Provider Summer PEDRO, Dr. Kee Admit Provider Ashok SAMUEL, Dr. Castrejon Other Provider Unavailable Yandy SAMUEL, Dr. Stephenson Attending Provider Omar Kebede MD, Dr. Stephenson Other Provider Unavailable John SAMUEL, Dr. Melgar Attending Provider Dr. Mathieu Virgen MD Primary Care Physician Renaldo HOT PACKER-CMegan Attending Physician Renaldo HOT PACKER-CMegan Nurse Practitioner Pj PEDRO, Dr. Wong Attending Physician Ally SAMUEL, Dr. Aceves Emergency Department Physici an Unavailable de Jose G PEDRO, Dr. Stephenson Admitting Physician Yamilet vailable Prather DO, Dr. Stephenson Nurse Practitioner Unav ailable Summer PEDRO, Dr. Kee Attending Physician Juan Carlos SAMUEL, Dr. Jordan Aguayo Attending Physician Summer PEDRO, Dr. Kee Nurse Practitioner Leila SAMUEL, Dr. Hernández Attending Physician UnavailEduardo Bonilla Attending Physician Dr. Marcelo Hernandez DO Emergency Department Physi goyo Summer PEDRO, Dr. Kee Admitting Physician Ashok SAMUEL, Dr. Castrejon Nurse Practitioner Unavailab alexandra Kebede MD, Dr. Stephenson Attending Physician Unavail able Yandy SAMUEL, Dr. Stephenson Nurse Practitioner Unavailrodríguez Lopez MD, Dr. Melgar Attending Physician Tierra Perdomo Attending Physician Dr. Mathieu Virgen MD Attending Physician MATHIEU VIRGEN Referring Unavailable MATHIEU VIRGEN Primary Care Unavailable Dr. Mathieu Virgen MD Primary Care Physician Renaldo HOT PACKER-CMegan Attending Physician Renaldo HOT PACKER-CMegan Referring Provider Miley Rodriguez Attending Unavailable Sara Landry Consulting Unavailable Sara Landry Admitting Unavailable [facility] Primary Care Unavailable Mani Esquivel Attending Unavailable [facility] Primary Care Unavailable Megan Macario Referring Unavailable RuMegan caldwell Attending Unavailable [facility] Primary Care Unavailable Chilango Wheeler Attending Unavailable Yola Canales Referring Unavailable Narda Prather Admitting Unavailable [facility] Primary Care Unavailable Narda Prather Consulting Unavailable Lauri HOT PACKER, Sergey Solares Attending Unavailable Lauri HOT PACKER, Sergey Solares Referring Unavailable [facility] Primary Care Unavailable RuMegan caldwell Referring Unavailable RuMegan caldwell Attending Unavailable [facility] Primary Care Unavailable [place], [facility] Primary Care Unavailable RuMegan caldwell Attending Unavailable Talia Lopez Attending Unavailable [facility] Primary Care Unavailable [facility] Primary Care Unavailable RuMegan caldwell Attending Unavailable [facility] Primary Care Unavailable [place], Mathieu Attending Unavailable [place], Mathieu Referring Unavailable [facility] Primary Care Unavailable [place], Mathieu Attending Unavailable [place], Mathieu Referring Unavailable [facility] Primary Care Unavailable [place], Mathieu Attending Unavailable [facility] Referring Unavailable RuMegan caldwell Attending Unavailable Megan Macario Referring Unavailable [facility] Primary Care Unavailable Megan Macario Referring Unavailable RuMegan caldwell Attending Unavailable [facility] Primary Care Unavailable Julianna Hood Attending Unavailable Julinana Hood Referring Unavailable [facility] Primary Care Unavailable Megan Macario M Referring Unavailable Megan Macario Attending Unavailable [facility] Primary Care Unavailable Qasim Senior Attending Unavailable [facility] Primary Care Unavailable Abraham Tierney Attending Unavailable [facility] Primary Care Unavailable [place], Mathieu Referring Unavailable [place], Mathieu Attending Unavailable [facility] Primary Care Unavailable Megan Macario Referring Unavailable RuMegan caldwell Attending Unavailable [facility] Primary Care Unavailable Eduardo Sweet Attending Unavailable Eduardo Sweet Referring Unavailable [facility] Primary Care Unavailable Tierra Perdomo Attending Unavail able Tierra Perdomo Referring Unavail able [facility] Primary Care Unavailable Julianna Hood Attending Unavailable Kiara, Julianna Referring Unavailable [facility] Primary Care Unavailable Edgar Dee Attending Unavailable Yola Canales Referring Unavailable [facility] Primary Care Unavailable Narda Prather Admitting Unavailable Narda Prather Consulting Unavailable Chilango Wheeler Consulting Unavailable Chilango Wheeler Attending Unavailable Devante Ponce Attending Unavailable [facility] Primary Care Unavailable [place], Mathieu Referring Unavailable RuMegan caldwell Referring Unavailable Megan Macario Consulting Unavailable Marvin Reeves Attending Unavailable [facility] Primary Care Unavailable Megan Macario Referring Unavailable Marvin Reeves Attending Unavailable [facility] Primary Care Unavailable Talia Lopez Attending Unavailable [facility] Primary Care Unavailable Tierra Perdomo Attending Unavail able [place], Mathieu Referring Unavailable [place], [facility] Primary Care Unavailable [place], Mathieu Referring Unavailable Megan Macario Attending Unavailable [facility] Primary Care Unavailable [place], Mathieu Referring Unavailable Roof HOT PACKER, Sergey Solares Attending Unavailable [facility] Primary Care Unavailable Megan Macario Attending Unavailable [facility] Primary Care Unavailable [place], Mathieu Referring Unavailable Roof HOT PACKER, Sergey Solares Attending Unavailable [facility] Primary Care Unavailable [place], Mathieu Referring Unavailable [place], Mathieu Referring Unavailable RuMegan caldwell Attending Unavailable [facility] Primary Care Unavailable [place], Mathieu Referring Unavailable Roof HOT PACKER, Sergey Solares Attending Unavailable [facility] Primary Care Unavailable Tierra Perdomo Attending Unavail able [place], Mathieu Referring Unavailable [facility] Primary Care Unavailable [place], [facility] Referring Unavailable Eduardo Sweet Attending Unavailable [facility] Primary Care Unavailable Chilango Wheeler Attending Unavailable [facility] Primary Care Unavailable Summer Chilango Admitting Unavailable Lucía Pulido Consulting Unavailable Narda Kebede Attending Unavailable [facility] Primary Care Unavailable Chilango Wheeler Consulting Unavailable Narda Kebede Consulting Unavailable Miley Rodriguez Attending Unavailable Sara Landry Admitting Unavailable Sara Landry Consulting Unavailable [facility] Primary Care Unavailable Miley Rodriguez Consulting Unavailable Sara Landry Attending Unavailable [facility] Primary Care Unavailable Reji Smith Attending Unavailable Narda Prather Attending Unavailable Summer, Chilango Admitting Unavailable Lucía Pulido Consulting Unavailable Narda Kebede Attending Unavailable [facility] Primary Care Unavailable Summer Chilango Consulting Unavailable [facility], MATHIEU J Attending Unavailable [facility] Primary Care Unavailable ANOOP PHILIP Attending Unavailable MATHIEU VIRGEN Referring Unavailable MATHIEU VIRGEN Primary Care Unavailable ANOOP PHILIP Attending Unavailable SELF Referring Unavailable MATHIEU VIRGEN Primary Care Unavailable DENISHA SHEPARD Attending Unavailable MATHIEU VIRGEN Primary Care Unavailable [facility] Attending Unavailable MATHIEU VIRGEN Primary Care Unavailable MATHIEU VIRGEN Attending Unavailable MATHIEU VIRGEN Primary Care Unavailable MATHIEU VIRGEN Attending Unavailable MATHIEU VIRGEN Primary Care Unavailable MATHIEU VIRGEN Referring Unavailable MATHIEU VIRGEN Primary Care Unavailable JAMAL MACE Attending Unavailable MATHIEU VIRGEN Referring Unavailable MATHIEU VIRGEN Primary Care Unavailable JAMAL MACE Referring Unavailable MATHIEU VIRGEN Primary Care Unavailable MATHIEU VIRGEN Attending Unavailable MATHIEU VIRGEN Primary Care Unavailable Allergies Allergy Classification Reported Allergen(s) Allergy Type Date of Onset Reaction(s) Facility Penicillins (antibiotic) (2 sources) Amoxicillin Drug Allergy 05-11-2005 [facility] (20 sources) Amoxicillin; Translations: [AMOXICILLIN] Drug Allergy 05-11-2005 Rash [facility] (1 source) Amoxicillin Drug Allergy 06-11-2025 [facility] Repository Medications Current Medications Medication Drug Class(es) Dates Sig (Normalized) Sig (Original) [id number] 200 actuat albuterol 0.09 mg/actuat metered dose [...] 30, 2021 11:37am Start: 07-25-2021 End: 11-30-2021 Start: 07-25-2021 End: 11-30-2021 Albuterol Sulfate Active 1 I [facility] INHALATION EVERY 6 HOURS 8.5 November 30, 2021 10:36am Comment on above: Inhale 2 Puffs as in structed every 4 hours as needed. atorvastatin 20 mg oral tablet (20 sources) HMG-CoA Reductase Inhibitor Start: 08-22-20 End: 08-22-20 take 1 tablet by mouth once daily Blood-Glucose Meter,Continuous (FREESTYLE MARIELLE 3 READER) misc [...] (20 sources) alpha-Adrenergic Salvador, beta-Adrenergic Salvador Start: 06-11-2025 Start: 05-31-2025 End: 06-11-2025 take 1 tablet by mouth twice daily Carvedilol 25 mg tablet Discontinued 25 mg PO TWICE A DAY May 31, 2025 12:00am June 11, 2025 11:40am Start: 05-04-2025 End: 05-31-2025 take 1 tablet by mouth twice daily Carvedilol 12.5 mg tablet Discontinued 12.5 mg PO TWICE A DAY 180 3 May 04th, 2025 10:47am May 31, 2025 11:21am heart Start: 02-07-2021 End: 05-04-2025 take 1 tablet by mouth twice daily Carvedilol 25 mg tablet Discontinued 25 mg PO TWICE A DAY 180 February 22, 2021 3:06pm May 04, 2025 1:37pm heart Start: 02-05-2021 End: 02-07-2021 take 1 tablet by mouth twice daily Carvedilol (Coreg) 12.5 mg Tablet Discontinued 12.5 mg PO TWICE A DAY February 05, 2021 12:00am February 07, 2021 10:53am blood pressure Comment on above: Take 25 mg by mouth twice daily. [facility] a day. cholecalciferol 0.05 mg oral capsule (15 sources) Vitamin D Start: take 1 capsule by mouth once daily 24 hr dilTIAZem hydrochloride 120 mg extended release oral capsule (20 sources) Calcium Channel Salvador Start: End: dilTIAZem CD (CARDIZEM CD, CARTIA XT) 120 [...] on above: Take 1 capsule by mo [facility] once daily. doxycycline hyclate 100 mg oral [...] srikanth th twice daily for 10 days. empagliflozin 25 mg oral tablet (20 sources) Sodium-Glucose Cotransporter 2 Inhibitor Start: 07-25-2024 End: 07-29-2024 take 1 tablet by mouth once daily Start: 06-22-2022 End: 11-29-2022 take 1 tablet by mouth once daily at breakfast empagliflozin (JARDIANCE) 10 mg tablet Take 1 tablet by mouth daily with breakfast. 30 tablet 5 06/22/2022 11/29/2022 Discontinued Comment on above: Take 1 tablet by srikanth th daily with breakfast. ferrous gluconate 324 mg oral tablet (14 sources) Start: 04-30-2025 take 1 tablet by mouth once daily Start: 04-08-2025 End: 04-30-2025 take 1 tablet by mouth twice daily Ferrous Gluconate 324 mg (37.5 mg iron) tablet Discontinued 324 mg PO TWICE A DAY 60 April 08, 2025 12:00am April 30, 2025 4:00pm finasteride 5 mg oral tablet (20 sources) 5-alpha Reductase Inhibitor Start: 12-13-2021 End: 11-26-2025 take 1 tablet by mouth once daily Start: 11-18-2019 End: 11-03-2021 take 1 tablet [...] tablet by srikanth th every twelve hours Start: 10-10-2021 End: 02-03-2022 take 1 tablet [...] th every 12 hours. Prescribed by outside embroiderer hand Take 150 mg by mouth twice daily. furosemide 40 mg oral tablet (20 sources) Loop Diuretic Start: 05-22-2025 Start: 04-29-2025 End: 05-04-2025 take 1 tablet [...] once daily. 3 tablet 02/28/2024 06/20/2024 Discontinued 3 ml insulin aspart, human 1 00 unt/ml pen injector (20 sources) Insulin Analog Start: 01-19-2025 Start: 01-19-2025 Insulin Aspart (Niacinamide) (Fiasp Flextouch U-100 Insulin) 100 unit/mL (3 mL) insulin pen Active 20 U SC THREE TIMES A DAY January 19, 2025 12:00am diabetes 20-26 U PER DAUGHTER BASED ON WHAT PT EATS Start: 01-19-2025 Insulin Aspart (Niacinamide) (Fiasp Flextouch [...] a day before meals. 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 15 mL 3 04/03/2025 Active Start: 09-22-2023 Start: 09-22-2023 Insulin Glargi ne (Basaglar Kwikpen [...] 29 x 1/2 syrg (20 sources) Start: 5 Insulin Syringe-Needle U-100 1/2 mL 29 x [...] insulin dependent. mecobalamin 1 mg chewable tablet (13 sources) Start: 5 take 1 tablet by mouth once daily 24 hr metFORMIN hydrochloride 500 mg extended release oral tablet (20 sources) Biguanide Start: 2 End: 6 Start: 11-04-2020 End: 09-19-2024 take 2 tablets [...] (5 sources) RNA Synthetase Inhibitor Antibacterial Start: 04-09-20 End: 04-14-20 mupirocin (BACTROBAN) 2 % ointment Apply to affected area three times a day for 5 days. 30 g 0 04/09/2024 04/14/2024 Active OTC NUTRITIONAL SUPPLEMENT (20 sources) OTC NUTRITIONAL SUPPLEMENT NUVOFLEX Active OXYGEN, HOME THERAPY, (20 sources) Start: 08-05-20 OXYGEN, HOME THERAPY, Indications: Chronic respiratory failure with hypoxia (HCC) 2 L/min by Nasal Cannula route continuous. 1 Each 08/05/2024 Active pantoprazole 40 mg delayed release oral tablet (4 sources) Proton Pump Inhibitor Start: 06-01-20 take 1 tablet by mouth once daily solifenacin succinate 10 mg oral tablet (20 sources) Cholinergic Muscarinic Antagonist Start: 07-22-20 take 1 tablet by mouth once daily spironolactone 25 mg oral tablet (20 sources) Aldosterone Antagonist Start: 09-23-19 take 1 tablet by mouth once daily Start: 01-30-2022 End: 06-20-2024 take 1 tablet by mouth once daily Spironolactone 25 mg tablet Discontinued 25 mg PO DAILY 30 January 30, 2022 12:00am June 16, 2024 4:48pm Comment on above: Take 25 mg by mouth once daily. Take [facility]. tamsulosin hydrochloride 0.4 mg oral capsule (20 sources) alpha-Adrenergic Salvador Start: 07-10-2024 take 1 capsule by mouth twice daily Start: 07-08-2024 take 1 capsule by mo [facility] every twelve hours tamsulosin (FLOMAX) 0.4 mg [...] Active Turmeric Root Extract 500 mg capsule (15 sources) Start: 10-24-2023 take 1 capsule by mouth once daily Start: 10-24-2023 take 1 capsule by mo [facility] once daily Turmeric Root Extract 500 mg capsule Active 1000 mg PO DAILY October 24, 2023 1:00am viatmin Start: 10-24-2023 take 1 capsule by mo [facility] once daily Turmeric Root Extract 500 mg [...] (Original) amiodarone hydrochloride 200 mg oral tablet (20 sources) Antiarrhythmic Start: 06-23-2021 End: 07-18-2021 take [...] tablet by srikanth two times a day. aspirin 81 mg [...] (1 source) beta-Adrenergic Salvador Start: 0 End: 05-17-202 1 take 1 tablet by mouth once [...] on above: Take 1 capsule by [facility] three times daily as needed for up [...] daily. Take 1 tablet by srikanth th every other day. Take 1 tablet by srikanth th once daily. dexamethasone 4 mg oral tablet (20 sources) Corticosteroid Start: 09-20-19 End: 10-24-19 take 6 mg by mouth once daily Dexamethasone 4 mg Tablet Discontinued 6 mg PO DAILY 12 8 September 20, 2021 1:00am October 24, 2021 [...] Take 0.5 mg by mouth once daily. famotidine 20 mg oral tablet (20 sources) Histamine-2 Receptor Antagonist Start: 06-19-2023 End: 06-02-2025 take 1 tablet by mouth twice daily Famotidine 20 mg tablet Discontinued 20 mg PO TWICE A DAY September 22, 2023 1:00am June 01, 2025 3:23pm reflux Start: 03-02-2023 End: 05-31-2023 take 1 tablet by mouth twice daily famotidine (PEPCID) 20 mg tablet Indications: Nausea Take 1 tablet by mouth twice daily. 60 tablet 2 03/02/2023 05/31/2023 Active Comment on above: Take 1 tablet by srikanth th twice daily. Take 1 tablet by srikanth th two times a day. hydroCHLOROthiazide 12.5 mg / losartan potassium 100 mg oral tablet (20 sources) Thiazide Diuretic, Angiotensin 2 Receptor Salvador Start: 06-23-20 take 1 tablet by mouth once daily Losartan-Hydroc hlorothiazide Active 1 TABLET PO DAILY June 22, [...] complication, with long-term current use of insulin ([facility]) Inject 22 Units subcutaneously three times daily [...] complication, with long-term current use of insulin ([facility]) Inject 15 Units subcutaneously three times daily [...] Discontinued 30 mg PO DAILY 30 0 September 20, 2024 1:00am October 22, 2024 [...] tablet Discontinued 25 mg PO DAILY 90 September 03, 2024 5:04pm December 11, 2024 1:40pm Start: 08-13-2024 End: 09-03-2024 take 1 tablet by mouth once daily Losartan 50 mg tablet Discontinued 50 mg PO DAILY 90 August 13, 2024 2:53pm September 03, 2024 [...] / nitrofurantoin, monohydrate 75 mg oral capsule (15 sources) Nitrofuran Antibacterial Start: 07-11-2024 End: 07-22-2024 take 1 capsule by mouth every twelve hours at mealtime Nitrofurantoin Monohyd/M-Cryst (Macrobid) 100 mg capsule Discontinued 100 mg PO Q12H 6 3 0 July 11, 2024 12:00am July 22, 2024 6:13pm must administer with a meal/food NUVOFLEX (16 sources) Start: 09-22-2023 End: 05-31-2025 NUVOFLEX Discontinued 1 NMA PO DAILY September 22, 2023 1:00am May 31, 2025 1:02pm arthritis Start: 09-22-2023 NUVOFLEX Activ e 1 NMA PO DAILY September 22, 2023 1:00am arthritis Start: 09-22-2023 NUVOFLEX Activ e 1 NMA PO DAILY September 22, 2023 1:00am Start: 09-22-2023 take 2 capsules by m outh once daily NUVOFLEX Active 2 CAP PO DAILY September 22, 2023 12:00am ondansetron 4 mg disintegrating oral tablet (19 sources) Serotonin-3 Receptor Antagonist Start: 03-01-2023 End: 09-22-2023 take 1 tablet by mouth every eight hours as needed for nausea Ondansetron 4 mg tablet,disintegrating Discontinued 4 mg PO EVERY 8 HOURS NEEDED as needed for Nausea 10 0 March 01, 2023 12:00am September 22, 2023 11:42am 24 hr oxybutynin chloride 10 mg extended release oral tablet (15 sources) Cholinergic Muscarinic Antagonist Start: 05-05-2024 End: [...] 0.9% 10 mL injection (DEFINITY) polymyxin b [id number] unt/ml / trimethoprim 1 mg/ml ophthalmic solution (17 sources) Dihydrofolate Reductase Inhibitor Antibacterial, Polymyxin-class Antibacterial Start: 11-21-2021 End: 03-06-2022 take 1 drop(s) into the eye(s) four times daily trimethoprim-polymyxin (POLYTRIM) 10,000 unit- 1 mg/mL ophthalmic solution Indications: Conjunctivitis of both eyes, unspecified conjunctivitis type Use 1 Drop in both eyes four times daily. Do not fill after 12/16/2021. 10 mL 0 11/21/2021 03/06/2022 Discontinued Comment on above: Use 1 Drop in both e yes four times daily. Do not fill after 12/16/2021. potassium chloride 20 meq extended release oral tablet (15 sources) Start: 09-03-2024 End: 09-23-2024 take 1 tablet by mouth twice daily Potassium Chloride 20 mEq tablet extended release Discontinued 20 meq PO TWICE A DAY 60 September 03, 2024 1:00am September 23, 2024 4:56pm sennosides, retirement 8.6 mg oral tablet (20 sources) Start: [...] mL (BD POSIFLUSH) TUMERIC 1,000 mg capsule (15 sources) Start: 09-22-2023 End: 10-24-2023 take 1 [...] Translations: [Malignant neoplasm of bladder, unspecified] Onset: 12-02-2024 12-02-2024 Chronic Cancer of prostate (2 sources) Malignant neoplasm of prostate; Translations: [Prostate cancer (HCC)] Onset: 06-25-2025 Chronic Cardiac dysrhythmias (20 sources) Paroxysmal atrial fibrillation; Translations: [Paroxysmal atrial fibrillation] Onset: 02-05-2021 05-06-2021 Chronic Chronic obstructive pulmonary disease and bronchiectasis (3 sources) Bronchitis; Translations: [Bronchitis, not specified as acute or chronic] 06-09-2023 Episodic Complications of surgical procedures or medical care (15 sources) Postoperative hemorrhage; Translations: [Hemorrhage complicating a [...] coronary artery; Translations: [Atherosclerotic heart disease of [place] coronary artery without angina pectoris] Onset: 06-06-2023 06-22-2021 Chronic Deficiency and other anemia (1 source) Iron deficiency anemia; Translations: [Iron deficiency anemia, unspecified] 07-29-2024 Episodic Deficiency and other anemia (17 sources) Anemia; Translations: [Anemia, unspecified] 04-08-2025 Episodic Diabetes mellitus with complications (20 sources) Type 2 diabetes mellitus; Translations: [Type 2 diabetes mellitus with other diabetic kidney complication] Onset: 05-11-2005 08-18-2021 Chronic Diabetes mellitus without complication (20 sources) Type 2 diabetes mellitus without complication; Translations: [Type 2 diabetes mellitus without complications] Chronic Diseases of white blood cells (20 sources) Monocytosis; 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)] Onset: 01-27-2025 Chronic Disorders of lipid metabolism (20 sources) Pure hypercholesterolemia; Translations: [Pure hypercholesterolemia, unspecified] Onset: 06-13-2005 Resolved: 06-06-2023 06-09-2009 Chronic E Codes: Adverse effects of medical drugs (15 sources) Adverse reaction to drug; Translations: [Adverse effect of unspecified drugs, medicaments and biological substances, initial encounter] 07-10-2024 Episodic E Codes: Fall (1 source) Fall; Translations: [Unspecified fall, initial encounter] 05-18-2023 Episodic Esophageal disorders (1 source) Gastro-esophageal reflux disease without esophagitis; Translations: [Gastroesophageal reflux disease without esophagitis] Onset: 06-12-2025 Chronic Essential hypertension (20 sources) Essential hypertension; Translations: [Essential (primary) hypertension] Onset: 05-11-2005 09-29-2015 Chronic Comment on above: CONTROLLED WITH MEDS Heart valve disorders (13 sources) Aortic valve stenosis; Translations: [Nonrheumatic aortic (valve) stenosis] 05-06-2025 Chronic Hyperplasia of prostate (20 sources) Benign prostatic hyperplasia; Translations: [Benign prostatic hyperplasia with lower urinary tract symptoms] Onset: 06-20-2024 Chronic Immunizations and screening for infectious disease (6 sources) Viral screening status; Translations: [Encounter for screening for other viral diseases] Onset: 06-12-2025 Episodic Malaise and fatigue (17 sources) Asthenia; Translations: [Weakness] 05-31-2024 Episodic Nonspecific chest pain (20 sources) Chest pain; Translations: [Chest pain, unspecified] Onset: 09-23-2024 Episodic Nutritional deficiencies (1 source) Cobalamin deficiency; Translations: [Deficiency of other specified B group vitamins] 07-29-2024 Episodic Other aftercare (20 sources) Long-term current use of anticoagulant; Translations: [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] Onset: 02-15-2021 02-15-2021 Episodic Other aftercare (1 source) Wound ; Translations: [Encounter for other specified surgical aftercare] 05-01-2023 Episodic Other aftercare (2 sources) Encounter for therapeutic drug level monitoring; Translations: [Medication monitoring encounter] Onset: 06-12-2025 Episodic Other and ill-defined heart disease (15 sources) Diastolic dysfunction; Translations: [Other ill-defined heart [...] of other diseases of circulatory system] Onset: 05-28-2025 11-21-2022 Episodic Other circulatory disease (20 sources) H/O: heart disorder; Translations: [Personal history of other diseases of the circulatory system] 07-22-2024 Episodic Other connective tissue disease (4 sources) Pain in left foot; Translations: [Pain in left foot] 01-12-2025 Episodic Other diseases of bladder and urethra (15 sources) Disorder of bladder; Translations: [Bladder disorder, unspecified] 08-13-2024 Chronic Comment on above: BLADDER TUMOR excisi on Other diseases of kidney and ureters (1 source) Disorder of kidney and ureter, unspecified; Translations: [Renal insufficiency] Onset: 06-25-2025 Episodic Other diseases of veins and lymphatics [...] Translations: [Constipation, unspecified] Episodic Other gastrointestinal disorders (15 sources) Acute diarrhea; Translations: [Diarrhea, unspecified] 06-08-2024 Episodic Other inflammatory condition of skin (20 sources) Psoriasis; Translations: [Other psoriasis] Onset: 05-11-2005 05-11-2005 Chronic Other inflammatory condition of skin (20 sources) Psoriatic arthritis; 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, unspecified] Onset: 12-02-2024 12-25-2023 Chronic Other inflammatory condition of skin (1 source) Arthropathic psoriasis, unspecified; Translations: [Psoriatic arthritis (HCC)] Onset: 12-02-2024 Chronic Other lower respiratory disease (15 sources) Pulmonary edema; Translations: [Chronic pulmonary edema] [...] 05-06-2021 11-21-2022 Episodic Other lower respiratory disease (20 sources) Pleuritic pain; Translations: [Pleurodynia] 09-28-2021 Episodic Other lower respiratory disease (20 sources) Restrictive lung disease; Translations: [Other disorders of lung] Onset: 06-06-2023 10-25-2022 Episodic Comment on above: PRN INHALER Other lower respiratory disease (4 sources) Other forms of dyspnea; Translations: [Other respiratory abnormalities] Episodic Other lower respiratory disease (1 source) Rib pain; Translations: [Pleurodynia] 05-25-2021 Episodic Other lower respiratory disease (1 source) Snoring; Translations: [Snoring] 06-23-2024 Episodic Other lower respiratory disease (1 source) Apnea; Translations: [Apnea, not elsewhere classified] 06-23-2024 Episodic Other lower respiratory disease (20 sources) Hypoxia; Translations: [Hypoxemia] 07-22-2024 Episodic Other nervous system disorders (1 source) [...] endocrine; and metabolic disorders (3 sources) Morbid (severe) obesity due to excess calories; Translations: [Morbid obesity] Chronic Other nutritional; endocrine; and metabolic disorders (15 sources) Body mass index 40+ - severely [...] Episodic Poisoning by other medications and drugs (20 sources) Poisoning by unspecified drugs, medicaments and [...] [Hypersomnia, unspecified] 02-28-2024 Chronic Residual codes; unclassified (15 sources) Daytime hypersomnia; Translations: [Hypersomnia, unspecified] 07-31-2024 Chronic Residual codes; unclassified (2 sources) Obstructive sleep apnea (adult) (pediatric); Translations: [Obstructive sleep apnea (adult) (pediatric)] Onset: 11-07-2024 Chronic Residual codes; unclassified (1 source) Hypersomnia, unspecified; Translations: [Hypersomnia, unspecified] Onset: 07-31-2024 Chronic Residual codes; unclassified (1 source) Sleep apnea, unspecified; Translations: [Sleep apnea, unspecified type] Onset: 01-10-2018 Chronic Residual codes; unclassified (3 sources) Bilateral lower limb edema; Translations: [Localized edema] 02-04-2024 Episodic Residual codes; unclassified (1 source) Cushingoid facies; Translations: [Other general symptoms and signs] 02-28-2024 Episodic Residual codes; unclassified (1 source) Frequent night waking; Translations: [Insomnia, unspecified] 06-23-2024 Episodic Residual codes; unclassified (15 sources) Creatinine level - finding 03-09-2023 Episodic Residual codes; unclassified (14 sources) Patient noncompliance - general; Translations: [General [...] level, right leg, initial encounter] Episodic Syncope (20 sources) Near syncope; Translations: [Syncope and collapse] Onset: 05-28-2025 05-18-2023 Episodic Unclassified (1 source) OPENED IN ERROR Unclassified (2 sources) Obesity, Class I, BMI 30-34.9; Translations: [Obesity, Class I, BMI 30-34.9] Onset: 06-12-2025 Unclassified (1 source) Obesity, class 1; Translations: [Obesity, class 1] Onset: 06-26-2025 Unclassified (1 source) Patient's noncompliance with other medical treatment and regimen due to unspecified reason; Translations: [Patient's noncompliance with other medical treatment and regimen due to unspecified reason] Onset: 05-28-2025 Urinary tract infections (20 sources) Urinary tract infectious disease; Translations: [Urinary tract infection, site not specified] 09-09-2024 Episodic Varicose veins of lower extremity (2 sources) [...] giddiness; Translations: [Dizziness] Onset: 04-12-2024 09-23-2024 Episodic Deficiency and other anemia (1 source) Anemia, unspecified; Translations: [Anemia, unspecified] Onset: 04-08-2025 Episodic Fluid and electrolyte disorders (20 sources) Mild dehydration; Translations: [Dehydration] Onset: 04-04-2023 Resolved: 06-06-2023 03-01-2023 Episodic Fracture of lower limb (6 sources) Closed fracture of foot; Translations: [Unspecified fracture of unspecified foot, initial encounter for closed fracture] Onset: 01-22-2025 01-15-2025 Episodic Genitourinary symptoms and ill-defined conditions (20 sources) Retention of urine; Translations: [Retention of urine, unspecified] Onset: 08-18-2021 Episodic Nausea and vomiting (20 sources) Nausea; Translations: [Nausea] Onset: 03-06-2023 Resolved: 06-06-2023 03-01-2023 Episodic Other aftercare (1 source) retirement (current) use of anticoagulants; Translations: [Chronic anticoagulation] Onset: 02-15-2021 Episodic Other and unspecified benign neoplasm (20 sources) Tubular adenoma of colon; Translations: [Benign neoplasm of colon, unspecified] Onset: 06-02-2015 06-02-2015 Episodic Other connective tissue disease (1 source) Pain in left foot; Translations: [Foot pain, left] Onset: 01-12-2025 Episodic Other lower respiratory disease (3 sources) Dyspnea, unspecified; Translations: [Other respiratory abnormalities] Onset: 07-25-2024 Episodic Other lower respiratory disease (6 sources) Shortness of breath; Translations: [Shortness of breath] Onset: 03-14-2025 Episodic Other lower respiratory disease (3 sources) Other disorders of lung; Translations: [Other diseases of lung, not elsewhere classified] Onset: 06-06-2023 Episodic Other lower respiratory disease (2 sources) Hypoxemia; Translations: [Hypoxemia] Onset: 03-14-2025 Episodic Other nutritional; endocrine; and metabolic disorders (20 sources) Cholesterol level - finding; Translations: [Lipoprotein deficiency] Onset: 06-09-2011 Resolved: 06-06-2023 06-09-2011 Chronic Spondylosis; intervertebral disc disorders; other back problems (20 sources) Sciatica; Translations: [Sciatica, unspecified side] Onset: 06-15-2005 Resolved: 05-06-2021 05-06-2021 Episodic Superficial injury; contusion (4 sources) Abrasion of left hand, initial encounter; Translations: [Abrasion or friction burn of hand(s) except finger(s) alone, without mention of infection] Onset: 01-12-2025 04-09-2024 Episodic Unclassified (2 sources) Contusion of left foot 01-12-2025 Results Test Name Value Interpretation Reference Range [facility] Office Visit (UROLSF ) ----- FAISAL ALARCON ([id number]) 1945 M Date Time Provider Department 07/24/25 10:00 AM ANOOP PHILIP During your visit today, we recorded the following information about you: Pulse Blood pressure Weight Height 80/minute 153/82 115.2 kg 1.854 m Anoop Philip MD 07/24/2025 10:21 AM Signed UROLOGY PROCEDURE NOTE Patient presents with history of bladder cancer for cystoscopy. Interval history: No new issues UNIVERSAL PROTOCOL / SAFETY CHECKLIST Procedure to be Performed: Cystoscopy Sign In: A Moment of CARE was completed. Appropriate PPE (Personal Protective Equipment) worn by all providers involved with the procedure. Special equipment not required. Patient/Surrogate Stated/Verified: Patient name, Date of , Relevant allergies, and the intended procedure Time Out: Relevant labs, photos, and/or imaging studies have been reviewed. Intended patient and procedure match the source document(s) (e.g. consent, HANDP, associated studies [imaging, pathology]) match the intended patient and procedure. Consent obtained and matches the intended procedure. Yes. Correct side/site is not applicable. Medications required for this procedure are verified. Fire risk assessed and is not applicable. Implants: are not applicable. Sign Out: Specimens are all correctly labeled and sent. All instruments, equipment, possible retained foreign bodies are accounted for. Yes. The post-procedure plan of care has been communicated to the patient or surrogate. CYSTOSCOPY PROCEDURE NOTE: Antibiotics: None The benefits, risks, alternatives of the cystoscopy procedure and personnel were discussed with the patient. The verbal consent was obtained and the patient agrees to proceed. Procedure: The patient was placed on the procedure table in the supine position and prepped and draped in the usual sterile fashion. 2% Lidocaine Jelly was placed per urethra as an anesthetic in the standard fashion. Once adequate local anesthesia was achieved, the tip of the flexible cystoscope was carefully placed into the urethra under direct visual guidance. Urethra: Normal Prostate: Bilobar hypertrophy Bladder: no stones, trabeculated, Right posterior wall low grade appearing tumor, both ureteral orifices seen Retroflexion: without intravesical protrusion of the prostate At the conclusion of the procedure, the flexible cystoscope was removed atraumatically. The patient tolerated the procedure without complications. Patient was given standard post-procedure instructions, and was directed to complete the course of oral antibiotics and increase oral fluid intake as directed. 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 He is on active surveillance. 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 apixaban (ELIQUIS) 5 mg tab(s) Take 5 mg by mouth two times a day. furosemide (LASIX) 40 mg tablet Take 1 tablet by mouth once daily. prn insulin glargine (BASAGLAR KWIKPEN U-100 INSULIN) 100 unit/mL (3 mL) Inject 47 Units subcutaneously daily at bedtime. ELIQUIS 5 mg tab(s) Take 1 tablet by mouth two times a day. carvedilol (COREG) 25 mg tablet Take 1 tablet by mouth two times a day. insulin aspart, niacinamide, (FIASP FLEXTOUCH U-100 INSULIN) [...] every afternoon. Ordered by cardiology Blood-Glucose Sensor ([employer] G7 SENSOR) sayra Apply new sensor every ten (10) days. metFORMIN ER (GLUCOPHAGE XR) 500 mg 24 hr tablet Take 2 tablets by mouth two times a day before meals. atorvastatin (LIPITOR) 20 mg ta (more content not included)... Normal [facility] CYTOLOGY NON-GYNon 5 AP DISCLAIMER Normal [facility] Comment on above: Order Comment: Speci men Type: URINE SPECIMENOrdering Facility: [facility] Address: [address] [place] [address] Result Comment: Miguel pederson Developed Test (LDT) Disclaimer: Performance characteristics of immunohistochemical, immunofluorescent, and chromogenic in-situ hybridization tests have been determined by the performing laboratory within the [facility] Department of Pathology and Laboratory Medicine ([facility], [facility], [facility], [facility], [facility], [facility], or [facility]) in a manner consistent with CLIA requirements. One or more of these tests may not have been cleared or approved by the FDA. The [facility] Department of Pathology and Laboratory Medicine is regulated under CLIA as qualified to perform high-complexity testing. These tests are used for clinical purposes. These should not be regarded as investigational or for research. Positive and negative controls stain appropriately. Performed By: #### C VAISHNAVI ####[facility] [id number] [place] [address] [place] CASE REPORT Normal [facility] Comment on above: Order Comment: Speci men Type: URINE SPECIMENOrdering Facility: [facility] Address: [address] [place] [address] Result Comment: [facility] Cytology Report Case: [id number] Authorizing Provider: Anoop Philip MD Collected: 07/24/2025 10:51 AM Ordering Location: Urology Received: 07/24/2025 03:00 PM Pathologist: Ekaterina Jain MD Specimen: Urine, Cystoscopic Performed By: #### C YTONON ####[facility] [id number] [place] [address] [place] CLINICAL HISTORY Bladder cancer, new tumor Normal [facility] Comment on above: Order Comment: Speci men Type: URINE SPECIMENOrdering Facility: [facility] Address: [address] [place] [address] Performed By: #### C YTONON ####[facility] [id number] [address] STATES OF [facility] FINAL DIAGNOSIS Normal [facility] Comment on above: Order Comment: Speci men Type: URINE SPECIMENOrdering Facility: [facility] Address: [address] [place] [address] Result Comment: A - Urine, Cystoscopic Negative for high-grade urothelial carcinoma. at 1555 EST Performed By: #### C YTONON ####[facility] [id number] [address] [place] FINAL PERFORMING LAB Normal [facility] Comment on above: Order Comment: Speci men Type: URINE SPECIMENOrdering Facility: [facility] Address: [address] [place] [address] Result Comment: Tech nical component, animal attendants and trainers screening performed at: [facility], [address] [place] [address] CLIA: [id number] Diagnostic interpretation performed at: [facility], [address] [place] [address], [address] [place] [address] CLIA# [id number] File Drawer Finisher: Chris Dodson MD Performed By: #### C YTONON ####[facility] [id number] [place] [address] [place] GROSS DESCRIPTION Normal [facility] Comment on above: Order Comment: Speci men Type: URINE SPECIMENOrdering Facility: [facility] Address: [address] [place] [address] Result Comment: ARoxanna hortae, Cystoscopic 10 cc clear light yellow fluid . ThinPrep prepared. Performed By: #### C YTONON ####[facility] [id number] [place] [address] [place] 25(OH)D3 [facility] 2024 25-hydroxyvitamin D3 [Mass/Vol] 41.2 ng/mL Normal 31.0-80.0 [facility] Comment on above: Order Comment: Speci men Type: BLOOD SPECIMEN [facility] Address: [address] [place] [address] Performed By: #### 1 989-3 #### [facility] CLIA [id number] [address] [place] [address] [place] ALBUMIN/CREATININE RATIO, UR INEon 06-25-2025 Albumin DL <= 20 mg/L (U) [Mass/Vol] 31.2 mg/L Normal [facility] Comment on above: Order Comment: Speci men Type: URINE SPECIMEN [facility] Address: [address] [place] [address] Performed By: #### U ACR #### [facility] CLIA [id number] [address] [place] [address] [place] Albumin/Creatinine (U) [Mass ratio] 44 mg/g High <30 [facility] Comment on above: Order Comment: Speci men Type: URINE SPECIMEN [facility] Address: [address] [place] [address] Result Comment: Adul t Male and Female Nephrotic Criteria: <30 mg/g is considered normal to mildly increased 30-300 mg/g is considered moderately increased >300 mg/g is considered severely increased KDIGO. (2013). KDIGO 2012 Clinical Practice Guideline for the Evaluation and Management of Chronic Kidney Disease. Official Journal of the International Society of Nephrology, 3(1), 1-150. Performed By: #### U ACR #### [facility] CLIA [id number] [address] [place] [address] [place] Creatinine (U) [Mass/Vol] 70.9 mg/dL Normal 20.0-300.0 [facility] Comment on above: Order Comment: Speci men Type: URINE SPECIMEN [facility] Address: [address] [place] [address] Performed By: #### U ACR #### [facility] CLIA [id number] [address] [place] [address] [place] Basic metabolic 2000 panelon 06-25-2025 Anion gap [Moles/Vol] 12 mmol/L Normal 8-15 [facility] Comment on above: Order Comment: Speci men Type: BLOOD SPECIMEN [facility] Address: [address] [place] [address] Performed By: #### 1 23-9, , 2132-05 #### [facility] CLIA [id number] [address] [place] [address] [place] Calcium [Mass/Vol] 9.6 mg/dL Normal 8.5-10.2 [facility] Comment on above: Order Comment: Speci men Type: BLOOD SPECIMEN [facility] Address: [address] [place] [address] Performed By: #### 1 9123-9, , 2132-05 #### [facility] CLIA [id number] [address] [place] [id number] [place] Chloride [Moles/Vol] 103 mmol/L Normal 98-107 [facility] Comment on above: Order Comment: Speci men Type: BLOOD SPECIMEN [facility] Address: [address] [place], [place] [id number] Performed By: #### 1 23-9, , 2132-05 #### [facility] CLIA [id number] [address] [place] [address] [place] CO2 [Moles/Vol] 24 mmol/L Normal 22-30 [facility] Comment on above: Order Comment: Speci men Type: BLOOD SPECIMEN [facility] Address: [address] [place] [address] Performed By: #### 1 9, , 2132-05 #### [facility] CLIA [id number] [address] [place] [address] [place] Creatinine [Mass/Vol] 0.97 mg/dL Normal 0.73-1.22 [facility] Comment on above: Order Comment: Speci men Type: BLOOD SPECIMEN [facility] Address: [address] [place] [address] Performed By: #### 1 9, , 2132-05 #### [facility] CLIA [id number] [address] [place] eGFRcr SerPlBld CKD-EPI 2020 78 mL/min/1.73m??? Normal >=60 [facility] Comment on above: Order Comment: Speci men Type: BLOOD SPECIMEN [facility] Address: [address] [place] [address] Result Comment: Racquel mated Glomerular Filtration Rate [...] accurately reflect actual GFR. Performed By: #### 1 23-9, , 2132-05 #### [facility] CLIA [id number] [address] [place] Glucose [Mass/Vol] 84 mg/dL Normal 74-99 [facility] Comment on above: Order Comment: Speci men Type: BLOOD SPECIMEN [facility] Address: [address] [place] [id number] Result Comment: The [place] Diabetes Association (ADA) provides guidance for cutoff [...] Standards of Medical Care in Diabetes 2016, [place] Diabetes Association. Diabetes Care. 2016.39(Suppl 1). Performed By: #### 1 239, , 2132-05 #### [facility] CLIA [id number] [address] [place] [address] [place] Potassium [Moles/Vol] 5.1 mmol/L Normal 3.7-5.1 [facility] Comment on above: Order Comment: Salvatore de la rosa Type: BLOOD SPECIMEN Ordering Facility: [facility] Address: [address] [place] [address] Performed By: #### 1 9, , 2132-05 #### [facility] CLIA [id number] [address] [place] [address] [place] Sodium [Moles/Vol] 139 mmol/L Normal 136-144 [facility] Comment on above: Order Comment: Salvatore de la rosa Type: BLOOD SPECIMEN Ordering Facility: [facility] Address: [address] [id number] Performed By: #### 1 239, , 2132-05 #### [facility] CLIA [id number] [address] [place] [address] [place] Urea nitrogen [Mass/Vol] 20 mg/dL Normal 9-24 [facility] Comment on above: Order Comment: Salvatore de la rosa Type: BLOOD SPECIMEN Ordering Facility: [facility] Address: [address] [place] [address] Performed By: #### 1 9123-9, 56213-2, 2132-9 #### [facility] CLIA [id number] [address] [place] [address] [facility] CNOVon 06-25-2025 CNOV Office Visit (UROLMD ) ----- FAISAL ALARCON ([id number]) 1945 M Date Time Provider Department 06/25/25 11:40 AM ANOOP PHILIP UROONEYDA During your visit today, we recorded the following information about you: Weight Height 110.7 kg 1.854 m Anoop Philip MD 06/25/2025 12:17 PM Signed NEW PATIENT ENCOUNTER HISTORY OF PRESENT ILLNESS: Faisal Alarcon is a 80 year old with GG1 prostate cancer and TaLG bladder cancer who presents to [facility]. Patient's daughter acted as primary historian. He has a history of above. 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 Patient states he was unaware of this. However he did bring in a pathology report demonstrating GG1 disease present on prostate chips from TURP. Volume/percent of chips with cancer involved not noted. He is not clear if PSA had been checked in follow up. He had an episode of gross hematuria last year and underwent TURBT 04/2024. Path TaLG. He was given a single intraoperative dose of mitomycin. Decision made not to pursue induction therapy due to other comorbidities. He has had negative cystoscopies since and thinks last was ~6 months ago. Environmental Exposures Smoking History - 45 pack year Occupational Exposures - None Pelvic radiation - None MEDICATIONS pantoprazole DR (PROTONIX) 40 mg tablet Take 1 tablet by mouth once daily. apixaban (ELIQUIS) 5 mg tab(s) Take 5 mg by mouth two times a day. furosemide (LASIX) 40 mg tablet Take 1 tablet by mouth once daily. prn insulin glargine (BASAGLAR KWIKPEN U-100 INSULIN) 100 unit/mL (3 mL) Inject 47 Units subcutaneously daily at bedtime. ELIQUIS 5 mg tab(s) Take 1 tablet by mouth two times a day. carvedilol (COREG) 25 mg tablet Take 1 tablet by mouth two times a day. insulin aspart, niacinamide, (FIASP FLEXTOUCH U-100 INSULIN) [...] every afternoon. Ordered by cardiology Blood-Glucose Sensor (AdTrib G7 SENSOR) sayra Apply new sensor every ten (10) days. metFORMIN ER (GLUCOPHAGE XR) 500 mg 24 hr tablet Take 2 tablets by mouth two times a day before meals. atorvastatin (LIPITOR) 20 mg tablet Take 1 tablet by mouth once daily. Replaces simvastatin OXYGEN, HOME THERAPY, 2 L/min by Nasal Cannula route continuous. OTC NUTRITIONAL SUPPLEMENT NUVOFLEX TURMERIC ORAL Take [...] Take 1 tablet by mouth once daily. colestipol (COLESTID) 1 gram tablet Take [...] twice daily. Accucheck compact test strips, dx-NIDDM HISTORIES PAST MEDICAL HISTORY Diagnosis Date DIABETES MELLITUS [...] Hypertension Father Cancer Mother Colon Cancer Sister C (more content not included)... Normal [facility] HbA1c (Bld)on 06-25-2025 Average glucose Estimated from glycated hemoglobin (Bld) [Mass/Vol] 143 mg/dL Normal [facility] Comment on above: Order Comment: Speci men Type: BLOOD SPECIMEN Ordering Facility: [facility] Address: [address] [place] [address] Result Comment: eAG: (Estimated average glucose) is a calculated value from HgbA1c and is inbound call center representative of the average blood glucose level in the last 2-3 month period. Performed By: #### 5 5454-3 #### [facility] CLIA [id number] [address] [place] [address] [place] [address] [place] HbA1c (Bld) [Mass fraction] 6.6 % High 4.3-5.6 [facility] Comment on above: Order Comment: Speci men Type: BLOOD SPECIMEN Ordering Facility: [facility] Address: [address] [place] [address] Result Comment: [place] Diabetes Association guidelines indicate that patients with HgbA1c in the range 5.7-6.4% are at increased risk for development of diabetes, and intervention by lifestyle modification may be beneficial. HgbA1c greater or equal to 6.5% is considered diagnostic of diabetes. Performed By: #### 5 5454-3 #### [facility] CLIA [id number] [address] [place] [address] [place] Magnesium SerPl-ncon 06-25 Magnesium [Mass/Vol] 2.4 mg/dL High 1.7-2.3 [facility] Comment on above: Order Comment: Speci men Type: BLOOD SPECIMEN Ordering Facility: [facility] Address: [address] [place] [address] Performed By: #### 1 9123-9, 71714-9, 2132-9 #### [facility] CLIA [id number] [address] [place] [address] [place] PSA SerPl-ncon 06-25-2025 Prostate specific Ag [Mass/Vol] 1.17 ng/mL Normal <2.60 [facility] Comment on above: Order Comment: Speci men Type: BLOOD SPECIMEN Ordering Facility: [facility] Address: [address] [place] [address] Result Comment: Tota l PSA test methodology used is the Electrochemiluminescence Immunoassay by [employer]. Total PSA values by differing methodologies cannot be interchanged. Performed By: #### 2 857-1 #### [facility] CLIA [id number] [address] [place] [address] [place] Vit B12 SerPl-mCncon 025 Cobalamin (Vitamin B12) [Mass/Vol] 1738 pg/mL High 232-1245 [facility] Comment on above: Order Comment: Speci men Type: BLOOD SPECIMEN Ordering Facility: [facility] Address: [address] [place] [address] Performed By: #### 1 9123-9, 45742-2, 2132-9 #### [facility] CLIA [id number] [address] [place] [address] [place] [facility] CNPNon 06-15-2025 CNPN Telephone (FAMWS) ----- FAISAL ALARCON ([id number]) 1945 M Date Time Provider Department 06/15/25 MATHIEU VIRGEN [facility] During your visit today, we recorded the following information about you: Jaylene Henley LPN 06/15/2025 3:19 PM Signed View External Labs - MG, B12, Vit D [ID [id number]] View External Labs - Chemistry [ID [id number]] Mathieu Virgen MD 06/15/2025 3:31 PM Signed His mag and b12 are both high. Is he still taking any supplements for them Kidney function is minimally down. Can recheck bmp in a few weeks. Sugars are excellent. Liyah Monroy RN 06/15/2025 6:48 PM Signed Called and left a voicemail for the Farida the Pt's daughter to call back and ask for a nurse to receive the providers message. NILDA Montalvo Krystle, RN 06/17/2025 9:39 AM Signed Daughter (Farida) returns call and results and provider message reviewed with verbalized understanding. Patient is taking B-12 and Magnesium Supplements. Farida reports that patient will have recheck BMP completed at [facility] in 3 weeks. Order faxed to [facility]. NILDA Rodriguez William J, MD 06/17/2025 9:56 AM Signed Hold on them for now. Liyah Monroy RN 06/18/2025 6:17 PM Signed Called and left a detailed voicemail notifying Pt's daughter Farida of providers message to hold supplements. Clinic phone number was left in case patient had any questions. Liyah Monroy RN Allergies As of Date: 06/15/2025 Noted Allergy Reaction AMOXICILLIN 05/11/2005 Comments: generalized erythema Date Reviewed: 06/12/2025 Reviewed by: Jaylene Henley LPN - Fully Assessed Reason for Visit: Results [95] Primary Visit Diagnosis:Renal insufficiency [N28.9] Order(s):BASIC METABOLIC PANEL [SQBMP] Order #: [id number] FUTURE Prescriptions as of 06/18/2025 - apixaban (ELIQUIS) 5 mg tab(s) Take 5 mg by mouth two times a day. - furosemide (LASIX) 40 mg tablet Take 1 tablet by mouth once daily. prn - pantoprazole DR (PROTONIX) 40 mg tablet Take 40 mg by mouth once daily. - insulin glargine [...] two times a day before meals. - atorvastatin (LIPITOR) 20 mg tablet Take [...] of 08/20/2013: Problem List As Of Date 06/15/2025 Noted Resolved OTHER PSORIASIS [L40.8] 05/11/2005 Essential hypertension [I10] 05/11/2005 Morbid obesity (HCC) [E66.01] 05/11/2005 06/06/2023 Paranoid schizophrenia, subchronic condition wi*05/11/2005 04/23/2017 Type 2 diabetes mellitus with microalbuminuria *05/11/2005 Pure hypercholesterolemia [E78.00] 06/13/2005 06/06/2023 Sciatica [M54.30] 06/15/2005 08 (more content not included)... [facility] gap in Serum or Plasma Ordered By: Eduardo Sweet on 06-12-2025 Anion gap [Moles/Vol] 12 mmol/L 01-29 [facility] BUN/creatinine ratioOrdered By: Eduardo Sweet on 06-12-2025 Urea nitrogen/Creatinine [Mass ratio] 17.0 mg/mg 07-06 [facility] Basic Metabolic Profile (BMP )on 06-12-2025 BUN/CRE 17.0 RATIO Normal 07-06 [facility] Comment on above: Performed By: #### L 500.2500, L503.7505 ####[facility] [address] [place], [address] Calcium [Mass/Vol] 9.4 mg/dL Normal 7.6-11.0 [facility] Comment on above: Performed By: #### L 500.2500, L503.7505 ####[facility] [address] [place], [address] Chloride [Moles/Vol] 102 mmol/L Normal 98-108 [facility] Comment on above: Performed By: #### L 500.2500, L503.7505 ####[facility] [address] [place], [address] CO2 [Moles/Vol] 22.6 mmol/L Normal 21.0-32.0 [facility] Comment on above: Performed By: #### L 500.2500, L503.7505 ####[facility] [address] [place], [address] Creatinine [Mass/Vol] 1.30 mg/dL High 0.70-1.20 [facility] Comment on above: Performed By: #### L 500.2500, L503.7505 ####[facility] [address] [place], [address] GAP 12 Normal 01-29 [facility] Comment on above: Performed By: #### L 500.2500, L503.7505 ####[facility] [address] [place], [address] GFR/1.73 sq M.predicted among non-blacks MDRD (S/P/Bld) [Vol rate/Area] 55 mL/min/{1.73_m2} Low >60 [facility] Comment on above: Result Comment: mL/m in/1.73m2 CKD-EPI Creatinine Equation (2020) Performed By: #### L 500.2500, L503.7505 ####[facility] [address] [place], [address] Glucose [Mass/Vol] 121 mg/dL High 70-99 [facility] Comment on above: Performed By: #### L 500.2500, L503.7505 ####[facility] [address] [place], [address] Potassium [Moles/Vol] 4.6 mmol/L Normal 3.3-5.1 [facility] Comment on above: Performed By: #### L 500.2500, L503.7505 ####[facility] [address] [place], [address] Sodium [Moles/Vol] 137 mmol/L Normal 133-145 [facility] Comment on above: Performed By: #### L 500.2500, L503.7505 ####[facility] [address] [place], [address] Urea nitrogen [Mass/Vol] 22 mg/dL High 4-19 [facility] Comment on above: Performed By: #### L 500.2500, L503.7505 ####[facility] [address] [place], [address] CNOVon 06-12-2025 CNOV Office Visit (FAMPWS ) ----- FAISAL ALARCON ([id number]) 1945 M Date Time Provider Department 06/12/25 11:00 AM MATHIEU VIRGEN During your visit today, we recorded the following information about you: Pulse Blood pressure Weight 72/minute 92/54 112.5 kg Mathieu Virgen MD 06/12/2025 11:43 AM Signed We discussed your recent hospitalizations and follow-up care: - You were hospitalized on 05/31/2026 and discharged on 06/01/2026 for chest pain. Cardiology evaluated you, and testing (including cardiac enzymes and an echocardiogram) did not indicate a cardiac cause for your symptoms. The echocardiogram showed mild concentric left ventricular hypertrophy, a left ventricular ejection fraction of 65%, stage 1 diastolic dysfunction, mild mitral valve insufficiency, and a mildly enlarged left atrium. - Your chest pain was thought to be related to reflux. Pepcid (famotidine) was discontinued, and you were started on Protonix (pantoprazole). Please continue taking Protonix as prescribed. - You had a prior hospitalization on 04/29/2026 to 04/30/2026 for syncope, which was attributed to dehydration caused by too much Lasix and insufficient fluid intake. Lasix is now to be taken only as needed. Monitor your weight daily, and if you gain 4 pounds or more, you may take Lasix. We discussed your blood pressure and heart rhythm: - Your blood pressure today was 92/54. You are not experiencing dizziness, lightheadedness, or swelling in your legs. - You recently wore a Holter monitor ordered by pulmonology. Cardiology is awaiting the results to determine if adjustments to your heart medications, including diltiazem (Cartia), are needed. No changes will be made until the results are reviewed. We discussed your diabetes: - Your continuous glucose monitor (CGM) shows a 14-day average glucose of 148, corresponding to an estimated A1c of 6.9. This is well-controlled. - Your most recent drawn A1c in May was 7.0. We will recheck your A1c with labs today to confirm your overall control. We discussed your urology care: - You are doing well following your bladder cancer treatment. You are due for follow-up with a urologist. We will refer you to a [facility] urologist for ongoing care. - You have no current issues with urination, such as burning or frequency. We discussed your sebaceous cyst: - You have a raised area on your chest where a sebaceous cyst was previously removed. It is not currently infected. If it becomes red, hot, or painful, please let us know. If you would like it removed again, we can refer you to a specialist. We discussed your overall health and additional testing: - Your appetite is good, and you are monitoring your weight daily. - You are keeping up with your eye care and receiving injections every 5 weeks for diabetic retinopathy. - We will check the following labs today: A1c, B12, vitamin D, and a urine test. - You received your flu shot today. Follow-up plan: - Continue taking Protonix as prescribed for reflux. - Monitor your weight daily and take Lasix as needed if you gain 4 pounds or more. - We will follow up with you in 12 weeks to reassess your symptoms and overall health. - We will refer you to a [facility] urologist for ongoing bladder cancer follow-up. - If your chest discomfort worsens or you experience new or concerning symptoms, please contact our office. Thank you for coming in today. Mathieu Virgen MD 06/12/2025 12:39 PM Signed The patient is an 80-year-old male with aortic stenosis, atrial fibrillation, and diabetes mellitus, presenting for post-discharge follow-up after hospitalization for chest pain. HPI Chest Pain: - Hospitalized at [facility] 05/31-06/01 for chest pain. - Cardiology consult performed; serial cardiac enzymes, monitoring, and echocardiogram conducted. - D-dimer: 0.31. - Echocardiogram (05/31) showed mild concentric LVH, LVEF 65%, stage 1 diastolic dysfunction, mild left atrial enlargement, and mild 1+ mitral valve insufficiency. - Cardiology determined no further cardiac workup was needed. - Pepcid discontinued; Protonix prescribed. - Recent episode of chest pain at embroiderer hand's office; Faisal reports it was minimal. - Pulmonology ordered Holter monitor; results pending. Syncope: - Hospitalized 04/29-04/30 for syncope; attributed to dehydration. - Faisal was outside and felt lightheaded. - Lasix dosage reduced to PRN; Faisal instructed to monitor weight and fluid intake. Aortic Stenosis: - Diagnosed with aortic stenosis; no recent changes in condition reported. Atrial Fibrillation: - History of AFib; previously on Eliquis, which was discontinued but recommended to resume. - Carotid study (04/29) showed mild 50% stenosis in bilateral extracranial internal carotid arteries. - Currently o (more content not included)... Normal [facility] Carbon dioxide, total [Moles /volume] in Central venous bloodOrdered By: Eduardo Sweet on 06-12-2025 CO2 [Moles/Vol] 22.6 mmol/L 21.0-32.0 [facility] Chloride assayOrdered By: Ria Sweet on 06-12-2025 Chloride [Moles/Vol] 102 mmol/L 98-108 [facility] Glomerular filtration rate ( GFR) estimation/1.73 sq m using serum, plasma, or whole bOrdered By: Eduardo Sweet on 06-12-2025 GFR/1.73 sq M.predicted among non-blacks MDRD (S/P/Bld) [Vol rate/Area] 55 mL/min/{1.73_m2} Low >60 [facility] Comment on above: mL/min/1.73m2 CKD-EP I Creatinine Equation (2020) Hemoglobin A1con 06-12-2025 HbA1c (Bld) [Mass fraction] 6.5 % High <=5.6 [facility] Comment on above: Result Comment: Norm al < 5.7 % Prediabetic 5.7 - 6.4 % Diabetic >or= 6.5 % Please note range changes. Performed By: #### L 501.9985, L501.5200, L502.0250, L503.0106, L506.1001 ####[facility] [address] [place], [address] Hemoglobin A1c percentageOrd ered By: Mathieu Virgen on 06-12-2025 HbA1c (Bld) [Mass fraction] 6.5 % High <5.7 [facility] Comment on above: Normal < 5.7 % Predi abetic 5.7 - 6.4 % Diabetic >or= 6.5 % Please note range changes. Magnesiumon 06-12-2025 Magnesium [Mass/Vol] 2.5 mg/dL High 1.5-2.2 [facility] Comment on above: Performed By: #### L 501.9985, L501.5200, L502.0250, L503.0106, L506.1001 ####[facility] [address] [place], [address] Magnesium measurement (mass/ volume)Ordered By: Mathieu Virgen on 06-12-2025 Magnesium (Unsp spec) [Mass/Vol] 2.5 mg/dL High 1.5-2.2 [facility] Microalb:Creat Ratio,Random URon 06-12-2025 MALB:CREAT Normal <30 mg/g CRE [facility] Comment on above: Result Comment: UTO Performed By: #### L 501.9985, L501.5200, L502.0250, L503.0106, L506.1001 ####[facility] [address] [place], [address] MICROALBUMIN,UR Normal <20 mg/L [facility] Comment on above: Result Comment: UTO Performed By: #### L 501.9985, L501.5200, L502.0250, L503.0106, L506.1001 ####[facility] [address] [place], [address] UR CREAT Normal 39.00-259. 00 [facility] Comment on above: Result Comment: UTO Performed By: #### L 501.9985, L501.5200, L502.0250, L503.0106, L506.1001 ####[facility] [address] [place], [address] Natriuretic peptide.B prohor cuate N-Terminal [Mass/volume] in Serum or PlasmaOrdered By: Eduardo Sweet on 06-12-2025 Natriuretic peptide.B prohormone N-Terminal [Mass/Vol] 318 pg/mL <1800 [facility] Comment on above: Heart Failure Unlike ly: < 300 pg/mLHeart Failure Likely< 50 Years: > 450 pg/mL50-75 Years: > 900 pg/mL>75 Years: > 1800 pg/mL Potassium measurement (mass/ volume)Ordered By: Eduardo Sweet on 06-12-2025 Potassium (Unsp spec) [Mass/Vol] 4.6 mmol/L 3.3-5.1 [facility] Pro- Brain NATRIURETIC PEPTI Suyapa 06-12-2025 Natriuretic peptide B (Bld) [Mass/Vol] 318 pg/mL Normal <=1800 [facility] Comment on above: Result Comment: Hear t Failure Unlikely: < 300 pg/mLHeart Failure Likely< 50 Years: > 450 pg/mL50-75 Years: > 900 pg/mL>75 Years: > 1800 pg/mL Performed By: #### L 500.2500, L503.7505 ####[facility] [address] [place], [address] Serum creatinine measurement (mass/volume)Ordered By: Eduardo Sweet on 06-12-2025 Creatinine [Mass/Vol] 1.30 mg/dL High 0.70-1.20 [facility] Serum glucose measurement (m ass/volume)Ordered By: Eduardo Sweet on 06-12-2025 Glucose [Mass/Vol] 121 mg/dL High 70-99 [facility] Serum or plasma calcium nahomy urement (mass/volume)Ordered By: Eduardo Sweet on 06-12-2025 Calcium [Mass/Vol] 9.4 mg/dL 7.6-11.0 [facility] Serum or plasma urea nitroge n measurement (mass/volume)Ordered By: Eduardo Sweet on 06-12-2025 Urea nitrogen [Mass/Vol] 22 mg/dL High 4-19 [facility] Sodium levelOrdered By: Christophe Sweet on 06-12-2025 Sodium [Moles/Vol] 137 mmol/L 133-145 [facility] Vitamin B12on 06-12-2025 Cobalamin (Vitamin B12) [Mass/Vol] pg/mL High 180-914 [facility] Comment on above: Performed By: #### L 501.9985, L501.5200, L502.0250, L503.0106, L506.1001 ####[facility] [address] [place], [address] Vitamin D,25 Hydroxyon 06-12 Vitamin D 25-OH 37.4 ng/mL Normal 30-100 [facility] Comment on above: Result Comment: Rolanda min D StatusDeficiency: <20 ng/mL (50nmol/L)Insufficiency: 20-30 ng/mL (50-75 nmol/L)Sufficiency: 30-100 ng/mL (75-250 nmol/L)Toxicity: >100 ng/mL (>250 nmol/L) Performed By: #### L 501.9985, L501.5200, L502.0250, L503.0106, L506.1001 ####[facility] [address] [place], [address] Cardiology Visit Reporton Cardiology Visit Report Normal [facility] Bedside Glucoseon 06-02-2025 FINGERSTICK GLU 186 mg/dL High 74-106 [facility] Comment on above: Result Comment: URSULA GEMENT OF PATIENT CARE PER NURSING PROTOCOL Performed By: #### L 501.080 ####[facility] [address] [place], [address] FINGERSTICK GLU 188 mg/dL High 74-106 [facility] Comment on above: Result Comment: URSULA GEMENT OF PATIENT CARE PER NURSING PROTOCOL Performed By: #### L 501.080 ####[facility] [address] [place], [address] 12 Lead EKGon 06-01-2025 12 Lead EKG Normal [facility] Anion gap in Serum or Plasma Ordered By: Chilango Wheeler on 06-01-2025 Anion gap [Moles/Vol] 12 mmol/L - [facility] BUN/creatinine ratioOrdered By: Chilango Wheeler on 06-01-2025 Urea nitrogen/Creatinine [Mass ratio] 24.7 mg/mg High - [facility] Basic Metabolic Profile (BMP )on 06-01-2025 BUN/CRE 24.7 RATIO High - [facility] Comment on above: Performed By: #### L 100.0500, L500.2500 ####[facility] [address] [place], [address] Calcium [Mass/Vol] 9.3 mg/dL Normal 7.6-11.0 [facility] Comment on above: Performed By: #### L 100.0500, L500.2500 ####[facility] [address] [place], [address] Chloride [Moles/Vol] 102 mmol/L Normal 98-108 [facility] Comment on above: Performed By: #### L 100.0500, L500.2500 ####[facility] [address] [place], [address] CO2 [Moles/Vol] 22.2 mmol/L Normal 21.0-32.0 [facility] Comment on above: Performed By: #### L 100.0500, L500.2500 ####[facility] [address] [place], [address] Creatinine [Mass/Vol] 1.02 mg/dL Normal 0.70-1.20 [facility] Comment on above: Performed By: #### L 100.0500, L500.2500 ####[facility] [address] [place], [place], [address] ECRCL 75.15 ml/min Normal 50-250 [facility] Comment on above: Performed By: #### L 100.0500, L500.2500 ####[facility] [address] [place], [address] GAP 12 Normal 5-15 [facility] Comment on above: Performed By: #### L 100.0500, L500.2500 ####[facility] [address] [place], [address] GFR/1.73 sq M.predicted among non-blacks MDRD (S/P/Bld) [Vol rate/Area] 74 mL/min/{1.73_m2} Normal >60 [facility] Comment on above: Result Comment: mL/m in/1.73m2 CKD-EPI Creatinine Equation (2020) Performed By: #### L 100.0500, L500.2500 ####[facility] [address] [place], [address] Glucose [Mass/Vol] 148 mg/dL High 70-99 [facility] Comment on above: Performed By: #### L 100.0500, L500.2500 ####[facility] [address] [place], [address] Potassium [Moles/Vol] 4.2 mmol/L Normal 3.3-5.1 [facility] Comment on above: Performed By: #### L 100.0500, L500.2500 ####[facility] [address] [place], [address] Sodium [Moles/Vol] 136 mmol/L Normal 133-145 [facility] Comment on above: Performed By: #### L 100.0500, L500.2500 ####[facility] [address] [place], [address] Urea nitrogen [Mass/Vol] 25 mg/dL High 4-19 [facility] Comment on above: Performed By: #### L 100.0500, L500.2500 ####[facility] [address] [place], [address] Bedside Glucoseon 06-01-2025 FINGERSTICK GLU 228 mg/dL High 74-106 [facility] Comment on above: Result Comment: URSULA GEMENT OF PATIENT CARE PER NURSING PROTOCOL Performed By: #### L 501.080 ####[facility] [address] [place], [address] FINGERSTICK GLU 327 mg/dL High 74-106 [facility] Comment on above: Result Comment: URSULA GEMENT OF PATIENT CARE PER NURSING PROTOCOL Performed By: #### L 501.080 ####[facility] [address] [place], [address] FINGERSTICK GLU 175 mg/dL High 74-106 [facility] Comment on above: Result Comment: URSULA GEMENT OF PATIENT CARE PER NURSING PROTOCOL Performed By: #### L 501.080 ####[facility] [address] [place], [address] FINGERSTICK GLU 183 mg/dL High 74-106 [facility] Comment on above: Result Comment: USRULA GEMENT OF PATIENT CARE PER NURSING PROTOCOL Performed By: #### L 501.080 ####[facility] [address] [place], [address] FINGERSTICK GLU 163 mg/dL High 74-106 [facility] Comment on above: Result Comment: URSULA GEMENT OF PATIENT CARE PER NURSING PROTOCOL Performed By: #### L 501.080 ####[facility] [address] [place], [address] CBC-Complete Blood Cnt No Di ffon 06-01-2025 Erythrocyte distribution width (RBC) [Ratio] 15.6 % High 11.6-14.6 [facility] Comment on above: Performed By: #### L 100.0500, L500.2500 ####[facility] [address] [place], [address] Hematocrit (Bld) [Volume fraction] 43.6 % Normal 40-54 [facility] Comment on above: Performed By: #### L 100.0500, L500.2500 ####[facility] [address] [place], [address] Hemoglobin (Bld) [Mass/Vol] 14.7 g/dL Normal 13.0-16.5 [facility] Comment on above: Performed By: #### L 100.0500, L500.2500 ####[facility] [address] [place], [address] MCH (RBC) [Entitic mass] 27.5 pg Normal 27.0-32.0 [facility] Comment on above: Performed By: #### L 100.0500, L500.2500 ####[facility] [address] [place], [address] MCHC (RBC) [Mass/Vol] 33.7 g/dL Normal 32-36 [facility] Comment on above: Performed By: #### L 100.0500, L500.2500 ####[facility] [address] [place], [address] MCV (RBC) [Entitic vol] 81.5 fL Normal 80-94 [facility] Comment on above: Performed By: #### L 100.0500, L500.2500 ####[facility] [address] [place], [address] Platelet mean volume (Bld) [Entitic vol] 10.1 fL Normal 6.2-12.0 [facility] Comment on above: Performed By: #### L 100.0500, L500.2500 ####[facility] [address] [place], [address] Platelets (Bld) [#/Vol] 264 10*3/uL Normal 150-450 [facility] Comment on above: Performed By: #### L 100.0500, L500.2500 ####[facility] [address] [place], [address] RBC (Bld) [#/Vol] 5.35 10*6/uL Normal 4.6-6.2 [facility] Comment on above: Performed By: #### L 100.0500, L500.2500 ####[facility] [address] [place], [address] RDW SD 46.3 fl High 35.1-43.9 [facility] Comment on above: Performed By: #### L 100.0500, L500.2500 ####[facility] [address] [place], [address] WBC (Bld) [#/Vol] 11.8 10*3/uL High 4.4-11.0 [facility] Comment on above: Performed By: #### L 100.0500, L500.2500 ####[facility] [address] [place], [address] Carbon dioxide, total [Moles /volume] in Central venous bloodOrdered By: Chilango Wheeler on 06-01-2025 CO2 [Moles/Vol] 22.2 mmol/L 21.0-32.0 [facility] Chloride assayOrdered By: Kevin Wheeler on 06-01-2025 Chloride [Moles/Vol] 102 mmol/L 98-108 [facility] Consultation - Cardiologyon 06-01-2025 Consultation - Cardiology Normal [facility] Electrocardiogram reportOrde red By: Gabriel Lin on 06-01-2025 EKG study [facility] Cardiovascular Services [address] [place] [address] 12 Lead EKG 06/01/25 0532 MR#: [id number] Acct: [id number] Name: FAISAL ALARCON Rep #:[id number] : 1945 80 From: Gabriel ramachandran MD Attending Dr: Dr. Narda Kebede MD Status: ADM CARLOS Ordering Dr: Narda Kebede MD Date: Location: U Sex: M C Admitted: 05/31/25 Test Reason : AM EKG Blood Pressure : */* mmHG Vent. Rate : 75 BPM Atrial Rate : 75 BPM P-R Int : 226 ms QRS Dur : 138 ms QT Int : 424 ms P-R-T Axes : 4 -75 21 degrees QTcB Int : 473 ms Sinus rhythm with 1st degree A-V block Left axis deviation Right bundle branch block Inferior infarct , age undetermined Abnormal ECG When compared with ECG of 31-May-2025 11:11, MANUAL COMPARISON REQUIRED DATA IS UNCONFIRMED Confirmed by Gabriel Lin ([id number]), film editor supervisor CARLOTA SUTTON ([id number]) on 06/01/2025 1:27:31 PM Referred By: Confirmed By: Gabriel Lin 06/01/251326 Date _ Gabriel Lin MD CC: Dr. Narda Kebede MD; Dr. Mathieu Virgen MD ~ Signed [facility] Work Phone: EKG study [facility] Cardiovascular Services [address] [place] [address] 12 Lead EKG 05/31/25 1111 MR#: [id number] Acct: [id number] Name: FAISAL ALARCON Rep #:[id number] : 1945 80 From: Gabriel ramachandran MD Attending Dr: Dr. Narda Kebede MD Status: ADM CARLOS Ordering Dr: Marcelo Hernandez DO Date: 0 05/31/25 Location: [facility] Sex: M C Admitted: 05/31/25 Test Reason : CP Blood Pressure : */* mmHG Vent. Rate : 78 BPM Atrial Rate : 78 BPM P-R Int : 214 ms QRS Dur : 152 ms QT Int : 424 ms P-R-T Axes : -2 -74 5 degrees QTcB Int : 483 ms Sinus rhythm with 1st degree A-V block with frequent Premature ventricular complexes LAFB Right bundle branch block Abnormal ECG Confirmed by Gabriel Lin ([id number]), film editor supervisor CARLOTA SUTTON ([id number]) on 06/01/2025 1:25:48 PM Referred By: NIKUNJ/BETSY Confirmed By: Gabriel Lin 06/01/25 132 Date _ Gabriel Lin MD CC: Dr. Narda Kebede MD; Dr. Marcelo Hernandez DO; Dr. Mathieu Virgen MD ~ Signed [facility] Work Phone: Erythrocyte distribution wid th ratioOrdered By: Chilango Wheeler on 06-01-2025 Erythrocyte distribution width (RBC) [Ratio] 15.6 % High 11.6-14.6 [facility] Erythrocyte distribution wid th standard deviationOrdered By: Chilango Wheeler on 06-01-2025 Erythrocyte distribution width (RBC) [Ratio] 46.3 fl High 35.1-43.9 [facility] Glomerular filtration rate ( GFR) estimation/1.73 sq m using serum, plasma, or whole bOrdered By: Chilango Wheeler on 06-01-2025 GFR/1.73 sq M.predicted among non-blacks MDRD (S/P/Bld) [Vol rate/Area] 74 mL/min/{1.73_m2} >60 [facility] Comment on above: mL/min/1.73m2 CKD-EP I Creatinine Equation (2020) [facility] deOrdered By: Narda Kebede on 06-01-2025 Glucose [Mass/Vol] 228 mg/dL High 74-106 [facility] Comment on above: MANAGEMENT OF PATIEN T CARE PER NURSING PROTOCOL Glucose [Mass/Vol] 327 mg/dL High 74-106 [facility] Comment on above: MANAGEMENT OF PATIEN T CARE PER NURSING PROTOCOL Hematocrit Auto (Bld) [Volum e fraction]Ordered By: Chilango Wheeler on 06-01-2025 Hematocrit (Bld) [Volume fraction] 43.6 % 40-54 [facility] Hemoglobin measurementOrdere d By: Chilango Wheeler on 06-01-2025 Hemoglobin (Bld) [Mass/Vol] 14.7 g/dL 13.0-16.5 [facility] Limited echocardiogram repor tOrdered By: Talia Lopez on 06-01-2025 Study report [facility] Cardiovascular Services [address] [place] [address] Echo, Limited Study 06/01/25 0857 MR#: [id number] Acct: [id number] Name: FAISAL ALARCON Rep #:[id number] : 1945 80 From: Talia Lopez MD Attending Dr: Dr. Narda Kebede MD Status: ADM CARLOS Ordering Dr: Chilango Wheeler DO Da te: 05/31/25 Location: [facility] Sex: M C Admitted: 05/31/25 Reason For Study Reason For Study: CHEST PAIN- PERICARDITIS Procedure This was a limited 2D transthoracic echocardiogram. Exam performed portable in patient room. Left Ventricle Normal LV size. Mild concentric left ventricular hypertrophy. The left ventricular ejection fraction is 65 %. Stage I diastolic dysfunction with elevated left atrial filling pressures. Right Ventricle Normal right ventricle. Atria The left atrium is mildly enlarged. Normal right atrium. Mitral Valve Mild (1+) mitral valve insufficiency. Tricuspid Valve Trivial tricuspid valve insufficiency. Unable to estimate RV systolic pressure due to insufficient tricuspid regurgitant envelope. Aortic Valve Mildly calcified and thickened aortic valve leaflets. Restricted leaflet excursion. No Doppler available. Pulmonic Valve The pulmonic valve is not well visualized. Great Vessels Normal sized aortic root. Pericardium/Pleural No pericardial effusion. MMode/2D Measurements & Calculations LVIDd: 4.5 cm IVSd: 1.3 cm LAV(MOD-bp): 49.6 ml LVIDs: 2.7 cm LVPWd: 1.4 cm LAV(MOD-bp) Indexed: 22.8 ml/m2 RVDd: 3.7 cm FS: 39.6 % LAV(MOD-sp2): 36.8 ml LAV(MOD-sp4): 59.8 ml SV(MOD-sp4): 37.6 ml LVAd ap4: 22.1 cm2 LVAd ap2: 21.3 cm2 LVLd ap4: 7.1 cm LVLd ap2: 7.1 cm SI(MOD-sp4): 17.3 ml/m2 EDV(MOD-sp4): 58.9 ml EDV(MOD-sp2): 52.2 ml EDV(sp4-el): 58.8 ml EDV(sp2-el): 54.3 ml LVAs ap4: 12.6 cm2 LVAs ap2: 10.4 cm2 LVLs ap4: 6.7 cm LVLs ap2: 6.0 cm ESV(MOD-sp4): 21.3 ml ESV(MOD-sp2): 15.2 ml ESV(sp4-el): 20.1 ml ESV(sp2-el): 15.1 ml EF(MOD-sp4): 63.8 % EF(MOD-sp2): 70.8 % EF(sp4-el): 65.9 % SV(MOD-sp2): 37.0 ml SV(sp4-el): 38.7 ml LA A4 area: 22.2 cm2 SI(MOD-sp2): 17.0 ml/m2 LA dimension(2D): 4.7 cm TAPSE: 1.8 cm RA A4 area: 13.3 cm2 Time Measurements MV dec time: 0.23 sec Doppler Measurements & Calculations MV E max kahlil: 76.8 cm/sec Lat Peak E' Kahlil: 3.9 cm/sec Med Peak E' Kahlil: 5.9 cm/sec MV A max kahlil: 82.7 cm/sec E/E' lat: 19.7 E/E' med: 13.0 MV E/A: 0.93 MV dec slope: 336.5 cm/sec2 ECHO/Echo, Limited Study Interpretation Summary Mild concentric left ventricular hypertrophy. The left ventricular ejection fraction is 65 %. Stage I diastolic dysfunction with elevated left atrial filling pressures. The left atrium is mildly enlarged. Mild (1+) mitral valve insufficiency. Mildly calcified and thickened aortic valve leaflets. Restricted leaflet excursion. No Doppler available. ___ Ordering Physician: Chilango Wheeler Performed By: Randi Villagran RDCS 06/01/25 1005 Date _ Talia Lopez MD CC: Dr. Chilango Wheeler DO; Dr. Narda Kebede MD; Dr. Mathieu Virgen MD ~ Date Dictated: 06/01/25856 Date Transcribed: 06/01/251004 Co Director: Signed [facility] Work Phone: MCV (mean corpuscular volume ) determinationOrdered By: Chilango Wheeler on 06-01-2025 MCV (RBC) [Entitic vol] 81.5 fL 80-94 [facility] Mean corpuscular hemoglobin (MCH) determinationOrdered By: Chilango Wheeler on 06-01-2025 MCH (RBC) [Entitic mass] 27.5 pg 27.0-32.0 [facility] Mean corpuscular hemoglobin concentration (MCHC) determinationOrdered By: Chilango Wheeler on 06-01-2025 MCHC (RBC) [Mass/Vol] 33.7 g/dL 32-36 [facility] Mean platelet volume determi nationOrdered By: Chilango Wheeler on 06-01-2025 Platelet mean volume (Bld) [Entitic vol] 10.1 fL 6.2-12.0 [facility] Platelet countOrdered By: Kevin Wheeler on 06-01-2025 Platelets (Bld) [#/Vol] 264 10*3/uL 150-450 [facility] Potassium measurement (mass/ volume)Ordered By: Chilango Wheeler on 06-01-2025 Potassium (Unsp spec) [Mass/Vol] 4.2 mmol/L 3.3-5.1 [facility] RBC Auto (Bld) [#/Vol]Ordere d By: Chilango Wheeler on 06-01-2025 RBC (Bld) [#/Vol] 5.35 10*6/uL 4.6-6.2 [facility] Serum creatinine measurement (mass/volume)Ordered By: Chilango Wheeler on 06-01-2025 Creatinine [Mass/Vol] 1.02 mg/dL 0.70-1.20 [facility] Serum glucose measurement (m ass/volume)Ordered By: Chilango Wheeler on 06-01-2025 Glucose [Mass/Vol] 148 mg/dL High 70-99 [facility] Serum or plasma calcium nahomy urement (mass/volume)Ordered By: Chilango Wheeler on 06-01-2025 Calcium [Mass/Vol] 9.3 mg/dL 7.6-11.0 [facility] Serum or plasma urea nitroge n measurement (mass/volume)Ordered By: Chilango Wheeler on 06-01-2025 Urea nitrogen [Mass/Vol] 25 mg/dL High 4-19 [facility] Sodium levelOrdered By: Reji Wheeler on 06-01-2025 Sodium [Moles/Vol] 136 mmol/L 133-145 [facility] White blood cell (WBC) count Ordered By: Chilango Wheeler on 06-01-2025 WBC (Bld) [#/Vol] 11.8 10*3/uL High 4.4-11.0 [facility] 12 Lead EKGon 05-31-2025 12 Lead EKG Normal [facility] Absolute lymphocyte countOrd ered By: Marcelo Hernandez on 05-31-2025 Lymphocytes Auto (Unsp spec) [#/Vol] 1.76 10*3/uL 0.83-4.51 [facility] Absolute neutrophil countOrd ered By: Marcelo Hernandez on 05-31-2025 Neutrophils (Bld) [#/Vol] 7.1 10*3/uL 2.0-7.7 [facility] Anion gap in Serum or Plasma Ordered By: Marcelo Hernandez on 05-31-2025 Anion gap [Moles/Vol] 15 mmol/L 5-15 [facility] Automated lymphocyte count a s percentage of total leukocytesOrdered By: Marcelo Hernandez on 05-31-2025 Lymphocytes/100 WBC Auto (Unsp spec) 17.4 % Low 19-41 [facility] BUN/creatinine ratioOrdered By: Marcelo Hernandez on 05-31-2025 Urea nitrogen/Creatinine [Mass ratio] 25.2 mg/mg High 10-20 [facility] Basic Metabolic Profile (BMP )on 05-31-2025 BUN/CRE 25.2 RATIO High 10-20 [facility] Comment on above: Performed By: #### L 100.0100, L300.8000, L500.2500, L501.4021, L503.7505 ####[facility] [address] [place], [address] Calcium [Mass/Vol] 9.5 mg/dL Normal 7.6-11.0 [facility] Comment on above: Performed By: #### L 100.0100, L300.8000, L500.2500, L501.4021, L503.7505 ####[facility] [address] [place], [address] Chloride [Moles/Vol] 100 mmol/L Normal 98-108 [facility] Comment on above: Performed By: #### L 100.0100, L300.8000, L500.2500, L501.4021, L503.7505 ####[facility] [address] [place], [address] CO2 [Moles/Vol] 20.0 mmol/L Low 21.0-32.0 [facility] Comment on above: Performed By: #### L 100.0100, L300.8000, L500.2500, L501.4021, L503.7505 ####[facility] [address] [place], [address] Creatinine [Mass/Vol] 0.99 mg/dL Normal 0.70-1.20 [facility] Comment on above: Performed By: #### L 100.0100, L300.8000, L500.2500, L501.4021, L503.7505 ####[facility] [address] [place], [address] ECRCL 66.13 ml/min Normal 50-250 [facility] Comment on above: Performed By: #### L 100.0100, L300.8000, L500.2500, L501.4021, L503.7505 ####[facility] [address] [place], [address] GAP 15 Normal 5-15 [facility] Comment on above: Performed By: #### L 100.0100, L300.8000, L500.2500, L501.4021, L503.7505 ####[facility] [address] [place], [address] GFR/1.73 sq M.predicted among non-blacks MDRD (S/P/Bld) [Vol rate/Area] 77 mL/min/{1.73_m2} Normal >60 [facility] Comment on above: Result Comment: mL/m in/1.73m2 CKD-EPI Creatinine Equation (2020) Performed By: #### L 100.0100, L300.8000, L500.2500, L501.4021, L503.7505 ####[facility] [address] [place], [address] Glucose [Mass/Vol] 164 mg/dL High 70-99 [facility] Comment on above: Performed By: #### L 100.0100, L300.8000, L500.2500, L501.4021, L503.7505 ####[facility] [address] [place], [address] Potassium [Moles/Vol] 4.1 mmol/L Normal 3.3-5.1 [facility] Comment on above: Performed By: #### L 100.0100, L300.8000, L500.2500, L501.4021, L503.7505 ####[facility] [address] [place], [address] Sodium [Moles/Vol] 135 mmol/L Normal 133-145 [facility] Comment on above: Performed By: #### L 100.0100, L300.8000, L500.2500, L501.4021, L503.7505 ####[facility] [address] [place], [address] Urea nitrogen [Mass/Vol] 25 mg/dL High 4-19 [facility] Comment on above: Performed By: #### L 100.0100, L300.8000, L500.2500, L501.4021, L503.7505 ####[facility] [address] [place], [address] Basophil percentageOrdered B y: Marcelo Hernandez on 05-31-2025 Basophils/100 WBC (Bld) 0.4 % 0-1 [facility] Bedside Glucoseon 05-31-2025 FINGERSTICK GLU 178 mg/dL High 74-106 [facility] Comment on above: Result Comment: URSULA GEMENT OF PATIENT CARE PER NURSING PROTOCOL Performed By: #### L 501.080 ####[facility] [address] [place], [address] FINGERSTICK GLU 168 mg/dL High 74-106 [facility] Comment on above: Result Comment: URSULA GEMENT OF PATIENT CARE PER NURSING PROTOCOL Performed By: #### L 501.080 ####[facility] [address] [place], [address] CBC W/Diff, Automatedon 05-18-2024 Absolute Lymph 1.76 X10 3/uL Normal 0.83-4.51 [facility] Comment on above: Performed By: #### L 100.0100, L300.8000, L500.2500, L501.4021, L503.7505 ####[facility] [address] [place], [address] Absolute Neut 7.1 X10 3/uL Normal 2.0-7.7 [facility] Comment on above: Performed By: #### L 100.0100, L300.8000, L500.2500, L501.4021, L503.7505 ####[facility] [address] [place], [address] Basophils/100 WBC (Bld) 0.4 % Normal 0-1 [facility] Comment on above: Performed By: #### L 100.0100, L300.8000, L500.2500, L501.4021, L503.7505 ####[facility] [address] [place], [address] Eosinophils/100 WBC (Bld) 2.0 % Normal 0-5 [facility] Comment on above: Performed By: #### L 100.0100, L300.8000, L500.2500, L501.4021, L503.7505 ####[facility] [address] [place], [address] Erythrocyte distribution width (RBC) [Ratio] 15.5 % High 11.6-14.6 [facility] Comment on above: Performed By: #### L 100.0100, L300.8000, L500.2500, L501.4021, L503.7505 ####[facility] [address] [place], [address] Hematocrit (Bld) [Volume fraction] 44.8 % Normal 40-54 [facility] Comment on above: Performed By: #### L 100.0100, L300.8000, L500.2500, L501.4021, L503.7505 ####[facility] [address] [place], [address] Hemoglobin (Bld) [Mass/Vol] 15.3 g/dL Normal 13.0-16.5 [facility] Comment on above: Performed By: #### L 100.0100, L300.8000, L500.2500, L501.4021, L503.7505 ####[facility] [address] [place], [address] IG% 0.600 Normal 0.0-0.9 [facility] Comment on above: Result Comment: IG% - Immature Granulocytes (promyelocytes, myelocytes andmetamyelocytes) > 1% indicates that a LEFT SHIFT is Present. Performed By: #### L 100.0100, L300.8000, L500.2500, L501.4021, L503.7505 ####[facility] [address] [place], [address] Lymphocytes/100 WBC (Bld) 17.4 % Low 19-41 [facility] Comment on above: Performed By: #### L 100.0100, L300.8000, L500.2500, L501.4021, L503.7505 ####[facility] [address] [place], [address] MCH (RBC) [Entitic mass] 27.6 pg Normal 27.0-32.0 [facility] Comment on above: Performed By: #### L 100.0100, L300.8000, L500.2500, L501.4021, L503.7505 ####[facility] [address] [place], [address] MCHC (RBC) [Mass/Vol] 34.2 g/dL Normal 32-36 [facility] Comment on above: Performed By: #### L 100.0100, L300.8000, L500.2500, L501.4021, L503.7505 ####[facility] [address] [place], [address] MCV (RBC) [Entitic vol] 80.9 fL Normal 80-94 [facility] Comment on above: Performed By: #### L 100.0100, L300.8000, L500.2500, L501.4021, L503.7505 ####[facility] [address] [place], [address] Monocytes/100 WBC (Bld) 9.6 % Normal 0-10 [facility] Comment on above: Performed By: #### L 100.0100, L300.8000, L500.2500, L501.4021, L503.7505 ####[facility] [address] [place], [address] Neutrophils/100 WBC (Bld) 70.0 % Normal 47-70 [facility] Comment on above: Performed By: #### L 100.0100, L300.8000, L500.2500, L501.4021, L503.7505 ####[facility] [address] [place], [address] Nucleated RBC (Bld) [#/Vol] 0 10*3/uL Normal 0-5 [facility] Comment on above: Performed By: #### L 100.0100, L300.8000, L500.2500, L501.4021, L503.7505 ####[facility] [address] [place], [address] Platelet mean volume (Bld) [Entitic vol] 10.7 fL Normal 6.2-12.0 [facility] Comment on above: Performed By: #### L 100.0100, L300.8000, L500.2500, L501.4021, L503.7505 ####[facility] [address] [place], [address] Platelets (Bld) [#/Vol] 300 10*3/uL Normal 150-450 [facility] Comment on above: Performed By: #### L 100.0100, L300.8000, L500.2500, L501.4021, L503.7505 ####[facility] [address] [place], [address] RBC (Bld) [#/Vol] 5.54 10*6/uL Normal 4.6-6.2 [facility] Comment on above: Performed By: #### L 100.0100, L300.8000, L500.2500, L501.4021, L503.7505 ####[facility] [address] [place], [address] RDW SD 45.4 fl High 35.1-43.9 [facility] Comment on above: Performed By: #### L 100.0100, L300.8000, L500.2500, L501.4021, L503.7505 ####[facility] [address] [place], [address] WBC (Bld) [#/Vol] 10.1 10*3/uL Normal 4.4-11.0 [facility] Comment on above: Performed By: #### L 100.0100, L300.8000, L500.2500, L501.4021, L503.7505 ####[facility] [address] [place], [address] CRPon 05-31-2025 C-REACTIVE PROT < 3.00 Normal 0.0-3.0 [facility] Comment on above: Performed By: #### L 501.6710, L101.9900 ####[facility] [address] [place], [address] Carbon dioxide, total [Moles /volume] in Central venous bloodOrdered By: Marcelo Hernandez on 05-31-2025 CO2 [Moles/Vol] 20.0 mmol/L Low 21.0-32.0 [facility] Chest 1 View (Portable)on Chest 1 View (Portable) Normal [facility] Chloride assayOrdered By: Honey Hernandez on 05-31-2025 Chloride [Moles/Vol] 100 mmol/L 98-108 [facility] D-Dimer Quantitative (DVT/PE )on 05-31-2025 D-DIMER QUANT 0.31 FEU/ug/m Normal 0.27-0.49 [facility] Comment on above: Result Comment: NORM AL D-Dimer level (<0.50) indicates no DVT or PE. Performed By: #### L 100.0100, L300.8000, L500.2500, L501.4021, L503.7505 ####[facility] [address] [place], [place], [id number] Echo, Limited Studyon 2024 Echo, Limited Study Normal [facility] Emergency Department Summary on 05-31-2025 Emergency Department Summary Normal [facility] Eosinophil percentageOrdered By: Marcelo Hernandez on 05-31-2025 Eosinophils/100 WBC (Bld) 2.0 % 0-5 [facility] Erythrocyte Sed Rateon 05-31 SED RATE 40 mm/hr High 0-20 [facility] Comment on above: Performed By: #### L 501.6710, L101.9900 ####[facility] [address] [place], [address] Erythrocyte distribution wid th ratioOrdered By: Marcelo Hernandez on 05-31-2025 Erythrocyte distribution width (RBC) [Ratio] 15.5 % High 11.6-14.6 [facility] Erythrocyte distribution wid th standard deviationOrdered By: Marcelo Hernandez on 05-31-2025 Erythrocyte distribution width (RBC) [Ratio] 45.4 fl High 35.1-43.9 [facility] Erythrocyte sedimentation ra teOrdered By: Chilango Wheeler on 05-31-2025 ESR (Bld) [Velocity] 40 mm/h High 0-20 [facility] Glomerular filtration rate ( GFR) estimation/1.73 sq m using serum, plasma, or whole bOrdered By: Marcelo Hernandez on 05-31-2025 GFR/1.73 sq M.predicted among non-blacks MDRD (S/P/Bld) [Vol rate/Area] 77 mL/min/{1.73_m2} >60 [facility] Comment on above: mL/min/1.73m2 CKD-EP I Creatinine Equation (2020) H AND P Exam - Hospitaliston 05-31-2025 H&P Exam - Hospitalist Normal [facility] Hematocrit Auto (Bld) [Volum e fraction]Ordered By: Marcelo Hernandez on 05-31-2025 Hematocrit (Bld) [Volume fraction] 44.8 % 40-54 [facility] Hemoglobin measurementOrdere d By: Marcelo Hernandez on 05-31-2025 Hemoglobin (Bld) [Mass/Vol] 15.3 g/dL 13.0-16.5 [facility] Immature granulocytes/100 WB C Auto (Bld)Ordered By: Marcelo Hernandez on 05-31-2025 Immature granulocytes/100 WBC (Bld) 0.600 % 0.0-0.9 [facility] Comment on above: IG% - Immature Granu locytes (promyelocytes, myelocytes and metamyelocytes) > 1% indicates that a LEFT SHIFT is Present. L501.4021on 05-31-2025 Trop T High Sen 68 ng/L Invalid Interpretation Code <=22 [facility] Comment on above: Result Comment: Crit ical Result(s) Called to: Leslie MUNGUIA (ER) by:Fany??Results read back by same. Performed By: #### L 100.0100, L300.8000, L500.2500, L501.4021, L503.7505 ####[facility] [address] [place], [address] MCV (mean corpuscular volume ) determinationOrdered By: Marcelo Hernandez on 05-31-2025 MCV (RBC) [Entitic vol] 80.9 fL 80-94 [facility] Mean corpuscular hemoglobin (MCH) determinationOrdered By: Marcelo Hernandez on 05-31-2025 MCH (RBC) [Entitic mass] 27.6 pg 27.0-32.0 [facility] Mean corpuscular hemoglobin concentration (MCHC) determinationOrdered By: Marcelo Hernandez on 05-31-2025 MCHC (RBC) [Mass/Vol] 34.2 g/dL 32-36 [facility] Mean platelet volume determi nationOrdered By: Marcelo Hernandez on 05-31-2025 Platelet mean volume (Bld) [Entitic vol] 10.7 fL 6.2-12.0 [facility] Monocyte percentageOrdered B y: Marcelo Hernandez on 05-31-2025 Monocytes/100 WBC (Bld) 9.6 % 0-10 [facility] Natriuretic peptide.B prohor cuate N-Terminal [Mass/volume] in Serum or PlasmaOrdered By: Marcelo Hernandez on 05-31-2025 Natriuretic peptide.B prohormone N-Terminal [Mass/Vol] 121 pg/mL <1800 [facility] Comment on above: Heart Failure Unlike ly: < 300 pg/mLHeart Failure Likely< 50 Years: > 450 pg/mL50-75 Years: > 900 pg/mL>75 Years: > 1800 pg/mL Neutrophil percentageOrdered By: Marcelo Hernandez on 05-31-2025 Neutrophils/100 WBC (Bld) 70.0 % 47-70 [facility] Nucleated red blood cell per centageOrdered By: Marcelo Hernandez on 05-31-2025 Nucleated RBC/100 WBC (Bld) [Ratio] 0 % 0-5 [facility] Platelet countOrdered By: Honey Hernandez on 05-31-2025 Platelets (Bld) [#/Vol] 300 10*3/uL 150-450 [facility] Potassium measurement (mass/ volume)Ordered By: Marcelo Hernandez on 05-31-2025 Potassium (Unsp spec) [Mass/Vol] 4.1 mmol/L 3.3-5.1 [facility] Pro- Brain NATRIURETIC PEPTI Suyapa 05-31-2025 Natriuretic peptide B (Bld) [Mass/Vol] 121 pg/mL Normal <=1800 [facility] Comment on above: Result Comment: Hear t Failure Unlikely: < 300 pg/mLHeart Failure Likely< 50 Years: > 450 pg/mL50-75 Years: > 900 pg/mL>75 Years: > 1800 pg/mL Performed By: #### L 100.0100, L300.8000, L500.2500, L501.4021, L503.7505 ####[facility] [address] [facility] [place], [place], [address] RBC Auto (Bld) [#/Vol]Ordere d By: Marcelo Hernandez on 05-31-2025 RBC (Bld) [#/Vol] 5.54 10*6/uL 4.6-6.2 [facility] RESPIRATORY PANEL MOLECULARo n 05-31-2025 RP PANEL Normal [facility] Comment on above: Performed By: #### M 100.638 ####[facility] [address] [facility]. [place], [place], [address] Respiratory pathogens detect ion panel by molecular detection methodOrdered By: Chilango Wheeler on 05-31-2025 Respiratory pathogens DNA and RNA panel DARRIAN+probe (Resp) [facility] Serum creatinine measurement (mass/volume)Ordered By: Marcelo Hernandez on 05-31-2025 Creatinine [Mass/Vol] 0.99 mg/dL 0.70-1.20 [facility] Serum glucose measurement (m ass/volume)Ordered By: Marcelo Hernandez on 05-31-2025 Glucose [Mass/Vol] 164 mg/dL High 70-99 [facility] Serum or plasma C reactive p rotein measurement (mass/volume)Ordered By: Chilango Wheeler on 05-31-2025 CRP [Mass/Vol] mg/L 0.0-3.0 [facility] Serum or plasma calcium nahomy urement (mass/volume)Ordered By: Marcelo Hernandez on 05-31-2025 Calcium [Mass/Vol] 9.5 mg/dL 7.6-11.0 [facility] Serum or plasma urea nitroge n measurement (mass/volume)Ordered By: Marcelo Hrenandez on 05-31-2025 Urea nitrogen [Mass/Vol] 25 mg/dL High 4-19 [facility] Sodium levelOrdered By: Marcelo Hernandez on 05-31-2025 Sodium [Moles/Vol] 135 mmol/L 133-145 [facility] Troponin T HS 2 HRon 025 Trop T High Sen 59 ng/L Invalid Interpretation Code <=22 [facility] Comment on above: Result Comment: Crit ical Result(s) Called to: Leslie MUNGUIA () by:Fany??Results read back by same. Performed By: #### L 499.0042 ####[facility] [address] [facility] [address] [facility] [place], [place], [id number] Troponin T HS 4 HRon 025 Trop T High Sen 53 ng/L High <=22 [facility] Comment on above: Result Comment: Crit ical Result(s) Called KENIASTSANGITA at: 1609 by:JOSETTE??Results read back by same. Performed By: #### L 499.0043 ####[facility] [address] [place], [place], [address] Troponin T.cardiac [Mass/vol ume] in Serum or Plasma by High sensitivity methodOrdered By: Marcelo Hernandez on 05-31-2025 Troponin T.cardiac High sensitivity method [Mass/Vol] 53 ng/L High <22 [facility] Comment on above: Critical Result(s) C alled ZARMSTRONG at: 1609 by: JOSETTE Results read back by same. Troponin T.cardiac High sensitivity method [Mass/Vol] 59 ng/L Critically high <22 [facility] Comment on above: Critical Result(s) C alled to: Leslie MUNGUIA (ER) by: Fany Results read back by marcos. Troponin T.cardiac High sensitivity method [Mass/Vol] 68 ng/L Critically high <22 [facility] Comment on above: Delta: 43 on 5-1600Critical Result(s) Called to: Leslie MUNGUIA (ER) by: Fany Results read back by marcos. White blood cell (WBC) count Ordered By: Marcelo Hernandez on 05-31-2025 WBC (Bld) [#/Vol] 10.1 10*3/uL 4.4-11.0 [facility] Cardiology Visit Reporton Cardiology Visit Report Normal [facility] Basic Metabolic Profile (BMP )on 05-02-2025 BUN Normal 4-19 [facility] Comment on above: Result Comment: Canc elled via OM: Order cancelled - Patient discharged Performed By: #### L 500.2500, L100.0500 ####[facility] [address] [place], [address] BUN/CRE Normal 10-20 [facility] Comment on above: Result Comment: Canc elled via OM: Order cancelled - Patient discharged Performed By: #### L 500.2500, L100.0500 ####[facility] [address] [place], [address] Calcium Normal 7.6-11.0 [facility] Comment on above: Result Comment: Canc elled via OM: Order cancelled - Patient discharged Performed By: #### L 500.2500, L100.0500 ####[facility] [address] [place], [address] CL Normal 98-108 [facility] Comment on above: Result Comment: Canc elled via OM: Order cancelled - Patient discharged Performed By: #### L 500.2500, L100.0500 ####[facility] [address] [place], [address] CO2 Normal 21.0-32.0 [facility] Comment on above: Result Comment: Canc elled via OM: Order cancelled - Patient discharged Performed By: #### L 500.2500, L100.0500 ####[facility] [address] [place], [address] CREAT,SERUM Normal 0.70-1.20 [facility] Comment on above: Result Comment: Canc elled via OM: Order cancelled - Patient discharged Performed By: #### L 500.2500, L100.0500 ####[facility] [address] [place], [address] eGFR Normal >60 [facility] Comment on above: Result Comment: Canc elled via OM: Order cancelled - Patient discharged Performed By: #### L 500.2500, L100.0500 ####[facility] [address] [place], [address] GAP Normal 5-15 [facility] Comment on above: Result Comment: Canc elled via OM: Order cancelled - Patient discharged Performed By: #### L 500.2500, L100.0500 ####[facility] [address] [place], [address] GLU Normal 70-99 [facility] Comment on above: Result Comment: Canc elled via OM: Order cancelled - Patient discharged Performed By: #### L 500.2500, L100.0500 ####[facility] [address] [place], [address] Potassium Normal 3.3-5.1 [facility] Comment on above: Result Comment: Canc elled via OM: Order cancelled - Patient discharged Performed By: #### L 500.2500, L100.0500 ####[facility] [address] [place], [address] Basic Metabolic Profile (BMP) Normal 133-145 [facility] Comment on above: Result Comment: Canc elled via OM: Order cancelled - Patient discharged Performed By: #### L 500.2500, L100.0500 ####[facility] [address] [place], [address] CBC-Complete Blood Cnt No Di ffon 05-02-2025 HCT Normal 40-54 [facility] Comment on above: Result Comment: Canc elled via OM: Order cancelled - Patient discharged Performed By: #### L 500.2500, L100.0500 ####[facility] [address] [place], [address] HGB Normal 13.0-16.5 [facility] Comment on above: Result Comment: Canc elled via OM: Order cancelled - Patient discharged Performed By: #### L 500.2500, L100.0500 ####[facility] [address] [place], [address] MCH Normal 27.0-32.0 [facility] Comment on above: Result Comment: Canc elled via OM: Order cancelled - Patient discharged Performed By: #### L 500.2500, L100.0500 ####[facility] [address] [place], [address] MCHC Normal 32-36 [facility] Comment on above: Result Comment: Canc elled via OM: Order cancelled - Patient discharged Performed By: #### L 500.2500, L100.0500 ####[facility] [address] [place], [address] MCV Normal 80-94 [facility] Comment on above: Result Comment: Canc elled via OM: Order cancelled - Patient discharged Performed By: #### L 500.2500, L100.0500 ####[facility] [address] [place], [address] PLT Normal 150-450 [facility] Comment on above: Result Comment: Canc elled via OM: Order cancelled - Patient discharged Performed By: #### L 500.2500, L100.0500 ####[facility] [address] [place], [address] RBC Normal 4.6-6.2 [facility] Comment on above: Result Comment: Canc elled via OM: Order cancelled - Patient discharged Performed By: #### L 500.2500, L100.0500 ####[facility] [address] [place], [address] RDW CV Normal 11.6-14.6 [facility] Comment on above: Result Comment: Canc elled via OM: Order cancelled - Patient discharged Performed By: #### L 500.2500, L100.0500 ####[facility] [address] [place], [address] RDW SD Normal 35.1-43.9 [facility] Comment on above: Result Comment: Canc elled via OM: Order cancelled - Patient discharged Performed By: #### L 500.2500, L100.0500 ####[facility] [address] [place], [address] WBC Normal 4.4-11.0 [facility] Comment on above: Result Comment: Canc elled via OM: Order cancelled - Patient discharged Performed By: #### L 500.2500, L100.0500 ####[facility] [address] [place], [address] 12 Lead EKGon 04-30-2025 12 Lead EKG Normal [facility] Absolute lymphocyte countOrd ered By: Narda Araiza on 04-30-2025 Lymphocytes Auto (Unsp spec) [#/Vol] 1.56 10*3/uL 0.83-4.51 [facility] Absolute neutrophil countOrd ered By: Narda Araiza on 04-30-2025 Neutrophils (Bld) [#/Vol] 5.7 10*3/uL 2.0-7.7 [facility] Anion gap in Serum or Plasma Ordered By: Narda Araiza on 04-30-2025 Anion gap [Moles/Vol] 11 mmol/L 5-15 [facility] Automated lymphocyte count a s percentage of total leukocytesOrdered By: Narda Araiza on 04-30-2025 Lymphocytes/100 WBC Auto (Unsp spec) 17.7 % Low 19-41 [facility] BUN/creatinine ratioOrdered By: Narda Araiza on 04-30-2025 Urea nitrogen/Creatinine [Mass ratio] 21.9 mg/mg High 10-20 [facility] Basophil percentageOrdered B y: Narda Araiza on 04-30-2025 Basophils/100 WBC (Bld) 0.6 % 0-1 [facility] Bedside Glucoseon 04-30-2025 FINGERSTICK GLU 191 mg/dL High 74-106 [facility] Comment on above: Result Comment: URSULA GEMENT OF PATIENT CARE PER NURSING PROTOCOL Performed By: #### L 501.080 ####[facility] [address] [facility] [address] FINGERSTICK GLU 338 mg/dL High 74-106 [facility] Comment on above: Result Comment: URSULA GEMENT OF PATIENT CARE PER NURSING PROTOCOL Performed By: #### L 501.080 ####[facility] [address] [place], [address] FINGERSTICK GLU 136 mg/dL High [address] [place] [address] Comment on above: Result Comment: URSULA GEMENT OF PATIENT CARE PER NURSING PROTOCOL Performed By: #### L 501.080 ####[facility] [address] [place], [address] FINGERSTICK GLU 177 mg/dL High [facility] Comment on above: Result Comment: URSULA GEMENT OF PATIENT CARE PER NURSING PROTOCOL Performed By: #### L 501.080 ####[facility] [address] [facility] [address] Bilirubin Test strip Ql (U)O rdered By: Narda Araiza on 04-30-2025 Bilirubin Ql (U) Negative Negative [facility] Bilirubin, totalOrdered By: Narda Araiza on 04-30-2025 Bilirubin [Mass/Vol] 0.34 mg/dL 0.00-1.30 [facility] CBC W/Diff, Automatedon 04-17 Absolute Lymph 1.56 X10 3/uL Normal 0.83-4.51 [facility] Comment on above: Performed By: #### L 100.0100, L500.4050, L501.2300, L501.9520, L501.9985 ####[facility] [address] [place], [address] Absolute Neut 5.7 X10 3/uL Normal 2.0-7.7 [facility] Comment on above: Performed By: #### L 100.0100, L500.4050, L501.2300, L501.9520, L501.9985 ####[facility] [address] [place], [address] Basophils/100 WBC (Bld) 0.6 % Normal 0-1 [facility] Comment on above: Performed By: #### L 100.0100, L500.4050, L501.2300, L501.9520, L501.9985 ####[facility] [address] [place], [address] Eosinophils/100 WBC (Bld) 4.2 % Normal 0-5 [facility] Comment on above: Performed By: #### L 100.0100, L500.4050, L501.2300, L501.9520, L501.9985 ####[facility] [address] [place], [address] Erythrocyte distribution width (RBC) [Ratio] 15.1 % High 11.6-14.6 [facility] Comment on above: Performed By: #### L 100.0100, L500.4050, L501.2300, L501.9520, L501.9985 ####[facility] [address] [place], [address] Hematocrit (Bld) [Volume fraction] 40.6 % Normal 40-54 [facility] Comment on above: Performed By: #### L 100.0100, L500.4050, L501.2300, L501.9520, L501.9985 ####[facility] [address] [place], [address] Hemoglobin (Bld) [Mass/Vol] 13.4 g/dL Normal 13.0-16.5 [facility] Comment on above: Performed By: #### L 100.0100, L500.4050, L501.2300, L501.9520, L501.9985 ####[facility] [address] [place], [address] IG% 0.600 Normal 0.0-0.9 [facility] Comment on above: Result Comment: IG% - Immature Granulocytes (promyelocytes, myelocytes andmetamyelocytes) > 1% indicates that a LEFT SHIFT is Present. Performed By: #### L 100.0100, L500.4050, L501.2300, L501.9520, L501.9985 ####[facility] [address] [place], [address] Lymphocytes/100 WBC (Bld) 17.7 % Low 19-41 [facility] Comment on above: Performed By: #### L 100.0100, L500.4050, L501.2300, L501.9520, L501.9985 ####[facility] [address] [place], [address] MCH (RBC) [Entitic mass] 27.1 pg Normal 27.0-32.0 [facility] Comment on above: Performed By: #### L 100.0100, L500.4050, L501.2300, L501.9520, L501.9985 ####[facility] [address] [place], [address] MCHC (RBC) [Mass/Vol] 33.0 g/dL Normal 32-36 [facility] Comment on above: Performed By: #### L 100.0100, L500.4050, L501.2300, L501.9520, L501.9985 ####[facility] [address] [place], [address] MCV (RBC) [Entitic vol] 82.2 fL Normal 80-94 [facility] Comment on above: Performed By: #### L 100.0100, L500.4050, L501.2300, L501.9520, L501.9985 ####[facility] [address] [place], [address] Monocytes/100 WBC (Bld) 11.7 % High 0-10 [facility] Comment on above: Performed By: #### L 100.0100, L500.4050, L501.2300, L501.9520, L501.9985 ####[facility] [address] [place], [address] Neutrophils/100 WBC (Bld) 65.2 % Normal 47-70 [facility] Comment on above: Performed By: #### L 100.0100, L500.4050, L501.2300, L501.9520, L501.9985 ####[facility] [address] [place], [address] Nucleated RBC (Bld) [#/Vol] 0 10*3/uL Normal 0-5 [facility] Comment on above: Performed By: #### L 100.0100, L500.4050, L501.2300, L501.9520, L501.9985 ####[facility] [address] [place], [address] Platelet mean volume (Bld) [Entitic vol] 10.5 fL Normal 6.2-12.0 [facility] Comment on above: Performed By: #### L 100.0100, L500.4050, L501.2300, L501.9520, L501.9985 ####[facility] [address] [place], [address] Platelets (Bld) [#/Vol] 284 10*3/uL Normal 150-450 [facility] Comment on above: Performed By: #### L 100.0100, L500.4050, L501.2300, L501.9520, L501.9985 ####[facility] [address] [place], [address] RBC (Bld) [#/Vol] 4.94 10*6/uL Normal 4.6-6.2 [facility] Comment on above: Performed By: #### L 100.0100, L500.4050, L501.2300, L501.9520, L501.9985 ####[facility] [address] [place], [address] RDW SD 45.4 fl High 35.1-43.9 [facility] Comment on above: Performed By: #### L 100.0100, L500.4050, L501.2300, L501.9520, L501.9985 ####[facility] [address] [place], [address] WBC (Bld) [#/Vol] 8.8 10*3/uL Normal 4.4-11.0 [facility] Comment on above: Performed By: #### L 100.0100, L500.4050, L501.2300, L501.9520, L501.9985 ####[facility] [address] [place], [address] Carbon dioxide, total [Moles /volume] in Central venous bloodOrdered By: Narda Araiza on 04-30-2025 CO2 [Moles/Vol] 21.9 mmol/L 21.0-32.0 [facility] Cardiovascular stress test r eportOrdered By: Edgar Dee on 04-30-2025 Study report [facility] [address] [place] [address] MR#: [id number] Acct: [id number] Name: FAISAL ALARCON Rep #: [id number] : 1945 80 From: Edgar Dee MD [...] Dr. Mathieu Virgen MD ~ Date Dictated: 04/30/251033 Date Transcribed: 04/30/251033 Co Director: SA Doherty [facility] Chloride assayOrdered By: Oracio Araiza on 04-30-2025 Chloride [Moles/Vol] 106 mmol/L 98-108 [facility] Comprehensive Metabolic Prof ilon 04-30-2025 Albumin [Mass/Vol] 3.4 g/dL Normal 3.4-4.8 [facility] Comment on above: Performed By: #### L 100.0100, L500.4050, L501.2300, L501.9520, L501.9985 ####[facility] [address] [place], [address] Albumin/Globulin [Mass ratio] 1.2 {ratio} Normal 0.9-2.4 [facility] Comment on above: Performed By: #### L 100.0100, L500.4050, L501.2300, L501.9520, L501.9985 ####[facility] [address] [place], [address] ALK PHOS 103 U/L Normal 40-129 [facility] Comment on above: Performed By: #### L 100.0100, L500.4050, L501.2300, L501.9520, L501.9985 ####[facility] [address] [place], [address] ALT [Catalytic activity/Vol] 11 U/L Normal <=46 [facility] Comment on above: Performed By: #### L 100.0100, L500.4050, L501.2300, L501.9520, L501.9985 ####[facility] [address] [place], [address] AST [Catalytic activity/Vol] 13 U/L Normal <=37 [facility] Comment on above: Performed By: #### L 100.0100, L500.4050, L501.2300, L501.9520, L501.9985 ####[facility] [address] [place], [address] Bilirubin [Mass/Vol] 0.34 mg/dL Normal 0.00-1.30 [facility] Comment on above: Performed By: #### L 100.0100, L500.4050, L501.2300, L501.9520, L501.9985 ####[facility] [address] [place], [address] BUN/CRE 21.9 RATIO High 10-20 [facility] Comment on above: Performed By: #### L 100.0100, L500.4050, L501.2300, L501.9520, L501.9985 ####[facility] [address] [place], [address] Calcium [Mass/Vol] 8.9 mg/dL Normal 7.6-11.0 [facility] Comment on above: Performed By: #### L 100.0100, L500.4050, L501.2300, L501.9520, L501.9985 ####[facility] [address] [place], [address] Chloride [Moles/Vol] 106 mmol/L Normal 98-108 [facility] Comment on above: Performed By: #### L 100.0100, L500.4050, L501.2300, L501.9520, L501.9985 ####[facility] [address] [place], [address] CO2 [Moles/Vol] 21.9 mmol/L Normal 21.0-32.0 [facility] Comment on above: Performed By: #### L 100.0100, L500.4050, L501.2300, L501.9520, L501.9985 ####[facility] [address] [place], [address] Creatinine [Mass/Vol] 0.83 mg/dL Normal 0.70-1.20 [facility] Comment on above: Performed By: #### L 100.0100, L500.4050, L501.2300, L501.9520, L501.9985 ####[facility] [address] [place], [address] ECRCL 92.43 ml/min Normal 50-250 [facility] Comment on above: Performed By: #### L 100.0100, L500.4050, L501.2300, L501.9520, L501.9985 ####[facility] [address] [place], [address] GAP 11 Normal 5-15 [facility] Comment on above: Performed By: #### L 100.0100, L500.4050, L501.2300, L501.9520, L501.9985 ####[facility] [address] [place], [address] GFR/1.73 sq M.predicted among non-blacks MDRD (S/P/Bld) [Vol rate/Area] 88 mL/min/{1.73_m2} Normal >60 [facility] Comment on above: Result Comment: mL/m in/1.73m2 CKD-EPI Creatinine Equation (2020) Performed By: #### L 100.0100, L500.4050, L501.2300, L501.9520, L501.9985 ####[facility] [address] [place], [address] Globulin (S) [Mass/Vol] 2.8 g/dL Normal 2.2-4.2 [facility] Comment on above: Performed By: #### L 100.0100, L500.4050, L501.2300, L501.9520, L501.9985 ####[facility] [address] [place], [address] Glucose [Mass/Vol] 102 mg/dL High 70-99 [facility] Comment on above: Performed By: #### L 100.0100, L500.4050, L501.2300, L501.9520, L501.9985 ####[facility] [address] [place], [address] Potassium [Moles/Vol] 4.2 mmol/L Normal 3.3-5.1 [facility] Comment on above: Performed By: #### L 100.0100, L500.4050, L501.2300, L501.9520, L501.9985 ####[facility] [address] [place], [address] Sodium [Moles/Vol] 138 mmol/L Normal 133-145 [facility] Comment on above: Performed By: #### L 100.0100, L500.4050, L501.2300, L501.9520, L501.9985 ####[facility] [address] [place], [address] T PROT 6.2 g/dL Normal 5.9-8.4 [facility] Comment on above: Performed By: #### L 100.0100, L500.4050, L501.2300, L501.9520, L501.9985 ####[facility] [address] [place], [address] Urea nitrogen [Mass/Vol] 18 mg/dL Normal - [facility] Comment on above: Performed By: #### L 100.0100, L500.4050, L501.2300, L501.9520, L501.9985 ####[facility] [address] [place], [address] Discharge Instructionon 04-17 Discharge Instruction Normal [facility] Echocardiogram study reportO rdered By: Edgar Dee on 04-30-2025 Study report [facility] [address] [place] [address] Echo Complete 04/30/25 0905 MR#: [id number] Acct: [id number] Name: FAISAL ALARCON Rep #:[id number] : 1945 80 From: Edgar Brannon Attending Dr: Dr. Chilango Wheeler, DO Status: ADM CARLOS Ordering Dr: Narda Prather DO Date: 04/29/25 Location: U Sex: M C Admitted: 04/29/25 Reason For [...] gradient from previously 11 to currently 17 ___ Ordering Physician: Narda Prather Referring Physician: Yola Canales Performed By: Gregoria Pichardo, DORI, RVT 04/30/251127 Date _ Edgar Dee MD CC: Dr. Chilango Wheeler DO; Dr. Narda Prather DO; Dr. Yola Canales MD;Dr. Mathieu Virgen MD ~ Date Dictated: 04/30/25904 Date Transcribed: 04/30/251127 Co Director: Signed [facility] Eosinophil percentageOrdered By: Narda Araiza on 04-30-2025 Eosinophils/100 WBC (Bld) 4.2 % 0-5 [facility] Erythrocyte distribution wid th ratioOrdered By: Narda Araiza on 04-30-2025 Erythrocyte distribution width (RBC) [Ratio] 15.1 % High 11.6-14.6 [facility] Erythrocyte distribution wid th standard deviationOrdered By: Narda Araiza on 04-30-2025 Erythrocyte distribution width (RBC) [Ratio] 45.4 fl High 35.1-43.9 [facility] Glomerular filtration rate ( GFR) estimation/1.73 sq m using serum, plasma, or whole bOrdered By: Narda Araiza on 04-30-2025 GFR/1.73 sq M.predicted among non-blacks MDRD (S/P/Bld) [Vol rate/Area] 88 mL/min/{1.73_m2} >60 [facility] Comment on above: mL/min/1.73m2 CKD-EP I Creatinine Equation (2020) [facility] deOrdered By: Chilango Wheeler on 04-30-2025 Glucose [Mass/Vol] 191 mg/dL High 74-106 [facility] Comment on above: MANAGEMENT OF PATIEN T CARE PER NURSING PROTOCOL Hematocrit Auto (Bld) [Volum e fraction]Ordered By: Narda Araiza on 04-30-2025 Hematocrit (Bld) [Volume fraction] 40.6 % 40-54 [facility] Hemoglobin A1con 04-30-2025 HbA1c (Bld) [Mass fraction] 6.7 % High <=5.6 [facility] Comment on above: Result Comment: Norm al < 5.7 % Prediabetic 5.7 - 6.4 % Diabetic >or= 6.5 % Please note range changes. Performed By: #### L 100.0100, L500.4050, L501.2300, L501.9520, L501.9985 ####[facility] [address] [place], [address] Hemoglobin A1c percentageOrd ered By: Narda Araiza on 04-30-2025 HbA1c (Bld) [Mass fraction] 6.7 % High <5.7 [facility] Comment on above: Normal < 5.7 % Predi abetic 5.7 - 6.4 % Diabetic >or= 6.5 % Please note range changes. Hemoglobin measurementOrdere d By: Narda Araiza on 04-30-2025 Hemoglobin (Bld) [Mass/Vol] 13.4 g/dL 13.0-16.5 [facility] Immature granulocytes/100 WB C Auto (Bld)Ordered By: Narda Araiza on 04-30-2025 Immature granulocytes/100 WBC (Bld) 0.600 % 0.0-0.9 [facility] Comment on above: IG% - Immature Granu locytes (promyelocytes, myelocytes and metamyelocytes) > 1% indicates that a LEFT SHIFT is Present. Ketones Test strip Ql (U)Ord ered By: Narda Araiza on 04-30-2025 Ketones Ql (U) Negative Negative [facility] Laboratory - Chemistry and C hemistry - challengeOrdered By: Narda Araiza on 04-30-2025 AST [Catalytic activity/Vol] 13 U/L <38 [facility] MCV (mean corpuscular volume ) determinationOrdered By: Narda Araiza on 04-30-2025 MCV (RBC) [Entitic vol] 82.2 fL 80-94 [facility] Mean corpuscular hemoglobin (MCH) determinationOrdered By: Narda Araiza on 04-30-2025 MCH (RBC) [Entitic mass] 27.1 pg 27.0-32.0 [facility] Mean corpuscular hemoglobin concentration (MCHC) determinationOrdered By: Narda Araiza on 04-30-2025 MCHC (RBC) [Mass/Vol] 33.0 g/dL 32-36 [facility] Mean platelet volume determi nationOrdered By: Narda Araiza on 04-30-2025 Platelet mean volume (Bld) [Entitic vol] 10.5 fL 6.2-12.0 [facility] Microscopic analysis of urin e for red blood cells (RBC)Ordered By: Narda Araiza on 04-30-2025 Microscopic analysis of urine for red blood cells (RBC) 0 SEEN /hpf 0-5 [facility] Monocyte percentageOrdered B y: Narda Araiza on 04-30-2025 Monocytes/100 WBC (Bld) 11.7 % High 0-10 [facility] Mucus LM Ql (Urine sed)Order ed By: Narda Araiza on 04-30-2025 Mucus Ql (Urine sed) 0 SEEN /hpf [facility] Neutrophil percentageOrdered By: Narda Araiza on 04-30-2025 Neutrophils/100 WBC (Bld) 65.2 % 47-70 [facility] Nitrite Test strip Ql (U)Ord ered By: Narda Araiza on 04-30-2025 Nitrite Ql (U) Negative Negative [facility] Nucleated red blood cell per centageOrdered By: Narda Araiza on 04-30-2025 Nucleated RBC/100 WBC (Bld) [Ratio] 0 % 0-5 [facility] Phosphoruson 04-30-2025 Phosphate [Mass/Vol] 3.0 mg/dL Normal 2.7-4.5 [facility] Comment on above: Performed By: #### L 100.0100, L500.4050, L501.2300, L501.9520, L501.9985 ####[facility] [address] [place], [address] Platelet countOrdered By: Oracio Araiza on 04-30-2025 Platelets (Bld) [#/Vol] 284 10*3/uL 150-450 [facility] Potassium measurement (mass/ volume)Ordered By: Narda Araiza on 04-30-2025 Potassium (Unsp spec) [Mass/Vol] 4.2 mmol/L 3.3-5.1 [facility] Protein Test strip Ql (U)Ord ered By: Narda Araiza on 04-30-2025 Protein Ql (U) 15 mg/dl High Negative [facility] RBC Auto (Bld) [#/Vol]Ordere d By: Narda Araiza on 04-30-2025 RBC (Bld) [#/Vol] 4.94 10*6/uL 4.6-6.2 [facility] Serum creatinine measurement (mass/volume)Ordered By: Narda Araiza on 04-30-2025 Creatinine [Mass/Vol] 0.83 mg/dL 0.70-1.20 [facility] Serum globulin measurementOr dered By: Narda Araiza on 04-30-2025 Globulin (S) [Mass/Vol] 2.8 g/dL 2.2-4.2 [facility] Serum glucose measurement (m ass/volume)Ordered By: Narda Araiza on 04-30-2025 Glucose [Mass/Vol] 102 mg/dL High 70-99 [facility] Serum or plasma alanine cottrell otransferase (ALT) measurementOrdered By: Narda Araiza on 04-30-2025 ALT [Catalytic activity/Vol] 11 U/L <47 [facility] Serum or plasma albumin nahomy urement (mass/volume)Ordered By: Narda Araiza on 04-30-2025 Albumin [Mass/Vol] 3.4 g/dL 3.4-4.8 [facility] Serum or plasma albumin/glob ulin mass ratioOrdered By: Narda Araiza on 04-30-2025 Albumin/Globulin [Mass ratio] 1.2 {ratio} 0.9-2.4 [facility] Serum or plasma alkaline ahsan sphatase measurementOrdered By: Narda Araiza on 04-30-2025 ALP [Catalytic activity/Vol] 103 U/L 40-129 [facility] Serum or plasma calcium nahomy urement (mass/volume)Ordered By: Narda Araiza on 04-30-2025 Calcium [Mass/Vol] 8.9 mg/dL 7.6-11.0 [facility] Serum or plasma urea nitroge n measurement (mass/volume)Ordered By: Narda Araiza on 04-30-2025 Urea nitrogen [Mass/Vol] 18 mg/dL 4-19 [facility] Sodium levelOrdered By: Chaz Araiza on 04-30-2025 Sodium [Moles/Vol] 138 mmol/L 133-145 [facility] Squamous epithelial cells de tection in urine sediment by light microscopyOrdered By: Narda Araiza on 04-30-2025 Epithelial cells.squamous LM Ql (Urine sed) 0-5 SEEN /hpf 0-5 [facility] Stress Reporton 04-30-2025 Stress Report Normal [facility] TSH DL <= 0.005 mIU/L QnOrde red By: Narda Araiza on 04-30-2025 TSH Qn 1.530 uIU/mL 0.300-4.20 0 [facility] Thyroid Stim Hormone (TSH)on 04-30-2025 TSH 1.530 uIU/mL Normal 0.300-4.20 0 [facility] Comment on above: Performed By: #### L 100.0100, L500.4050, L501.2300, L501.9520, L501.9985 ####[facility] [address] [place], [place], [id number] Total proteinOrdered By: Ki Araiza on 04-30-2025 Protein [Mass/Vol] 6.2 g/dL 5.9-8.4 [facility] Urinalysis, Completeon 04-30 BACTERIA 1+ /hpf Normal None Seen [facility] Comment on above: Order Comment: CLEAN CATCH Performed By: #### L 400.0001 ####[facility] [address] [place], [address] EPI,SQUAMOUS 0-5 SEEN Normal 0-5 [facility] Comment on above: Order Comment: CLEAN CATCH Performed By: #### L 400.0001 ####[facility] [address] [place], [place], [id number] WBC 10-25 SEEN Normal 0-5 [facility] Comment on above: Order Comment: CLEAN CATCH Performed By: #### L 400.0001 ####[facility] [address] [place], [place], [address] Mucus Ql (Urine sed) 0 SEEN Normal [facility] Comment on above: Order Comment: CLEAN CATCH Performed By: #### L 400.0001 ####[facility] [address] [place], [place], [id number] RBC 0 SEEN Normal 0-5 [facility] Comment on above: Order Comment: CLEAN CATCH Performed By: #### L 400.0001 ####[facility] [address] [place], [place], [id number] Urine clarityOrdered By: Ki Araiza on 04-30-2025 Clarity (U) Clear Clear [facility] Urine color determinationOrd ered By: Narda Araiza on 04-30-2025 Color (U) Straw Yellow [facility] Urine glucose detectionOrder ed By: Narda Araiza on 04-30-2025 Glucose Ql (U) 1000 mg/dl High Normal [facility] Urine leukocyte esterase det ection by dipstickOrdered By: Narda Araiza on 04-30-2025 Leukocyte esterase Test strip Ql (U) 25 /ul High Negative [facility] Urine pHOrdered By: Narda gabriel on 04-30-2025 pH (U) 6.0 [pH] 5.0 - 8.0 [facility] Urine sediment bacteria coun t by microscopy (number/high power field)Ordered By: Narda Araiza on 04-30-2025 Bacteria LM.HPF (Urine sed) [#/Area] 1 /[HPF] None Seen [facility] Urine specific gravity measu rementOrdered By: Narda Araiza on 04-30-2025 Specific gravity (U) [Rel density] 1.015 1.002-1.03 0 [facility] Urine urobilinogen measureme ntOrdered By: Narda Araiza on 04-30-2025 Urobilinogen Ql (U) Normal mg/dl Normal [facility] White blood cell (WBC) count Ordered By: Narda Araiza on 04-30-2025 WBC (Bld) [#/Vol] 8.8 10*3/uL 4.4-11.0 [facility] White blood cell countOrdere d By: Narda Araiza on 04-30-2025 White blood cell count 10-25 SEEN /hpf 0-5 [facility] Absolute lymphocyte countOrd ered By: Yola Canales on 04-29-2025 Lymphocytes Auto (Unsp spec) [#/Vol] 1.49 10*3/uL 0.83-4.51 [facility] Absolute neutrophil countOrd ered By: Yola Canales on 04-29-2025 Neutrophils (Bld) [#/Vol] 7.3 10*3/uL 2.0-7.7 [facility] Anion gap in Serum or Plasma Ordered By: Yola Canales on 04-29-2025 Anion gap [Moles/Vol] 15 mmol/L 5-15 [facility] Automated blood erythrocyte countOrdered By: Yola Canales on 04-29-2025 RBC (Bld) [#/Vol] 5.23 10*6/uL Normal 4.6-6.2 [facility] Comment on above: Performed By: #### L 100.0100, L500.2500, L501.4021, L501.5200 ####[facility] [address] [place], [place], [address] Automated blood hematocrit ( percentage)Ordered By: Yola Canales on 04-29-2025 Hematocrit (Bld) [Volume fraction] 42.8 % Normal 40-54 [facility] Comment on above: Performed By: #### L 100.0100, L500.2500, L501.4021, L501.5200 ####[facility] [address] [place], [address] Automated lymphocyte count a s percentage of total leukocytesOrdered By: Yola Canales on 04-29-2025 Lymphocytes/100 WBC Auto (Unsp spec) 14.5 % Low 19-41 [facility] BUN/creatinine ratioOrdered By: Yola Canales on 04-29-2025 Urea nitrogen/Creatinine [Mass ratio] 19.8 mg/mg 10-20 [facility] Basic Metabolic Profile (BMP )on 04-29-2025 BUN/CRE 19.8 RATIO Normal 10-20 [facility] Comment on above: Performed By: #### L 100.0100, L500.2500, L501.4021, L501.5200 ####[facility] [address] [place], [address] ECRCL 64.29 ml/min Normal 50-250 [facility] Comment on above: Performed By: #### L 100.0100, L500.2500, L501.4021, L501.5200 ####[facility] [address] [place], [address] GAP 15 Normal 5-15 [facility] Comment on above: Performed By: #### L 100.0100, L500.2500, L501.4021, L501.5200 ####[facility] [address] [place], [address] Potassium [Moles/Vol] 4.1 mmol/L Normal 3.3-5.1 [facility] Comment on above: Performed By: #### L 100.0100, L500.2500, L501.4021, L501.5200 ####[facility] [address] [place], [address] Basophil percentageOrdered B y: Yola Canales on 04-29-2025 Basophils/100 WBC (Bld) 0.4 % Normal 0-1 [facility] Comment on above: Performed By: #### L 100.0100, L500.2500, L501.4021, L501.5200 ####[facility] [address] [place], [address] Bedside Glucoseon 04-29-2025 FINGERSTICK GLU 164 mg/dL High 74-106 [facility] Comment on above: Result Comment: URSULA CHAMBERS OF PATIENT CARE PER NURSING PROTOCOL Performed By: #### L 501.080 ####[facility] [address] [place], [address] CBC W/Diff, Automatedon 04-17 Absolute Lymph 1.49 X10 3/uL Normal 0.83-4.51 [facility] Comment on above: Performed By: #### L 100.0100, L500.2500, L501.4021, L501.5200 ####[facility] [address] [place], [address] Absolute Neut 7.3 X10 3/uL Normal 2.0-7.7 [facility] Comment on above: Performed By: #### L 100.0100, L500.2500, L501.4021, L501.5200 ####[facility] [address] [place], [address] IG% 0.400 Normal 0.0-0.9 [facility] Comment on above: Result Comment: IG% - Immature Granulocytes (promyelocytes, myelocytes andmetamyelocytes) > 1% indicates that a LEFT SHIFT is Present. Performed By: #### L 100.0100, L500.2500, L501.4021, L501.5200 ####[facility] [address] [place], [address] Lymphocytes/100 WBC (Bld) 14.5 % Low 19-41 [facility] Comment on above: Performed By: #### L 100.0100, L500.2500, L501.4021, L501.5200 ####[facility] [address] [place], [address] Nucleated RBC (Bld) [#/Vol] 0 10*3/uL Normal 0-5 [facility] Comment on above: Performed By: #### L 100.0100, L500.2500, L501.4021, L501.5200 ####[facility] [address] [place], [address] RDW SD 44.9 fl High 35.1-43.9 [facility] Comment on above: Performed By: #### L 100.0100, L500.2500, L501.4021, L501.5200 ####[facility] [address] [place], [address] CTA Chest W/WO Contraston CTA Chest W/WO Contrast Normal [facility] Carbon dioxide, total [Moles /volume] in Central venous bloodOrdered By: Yola Canales on 04-29-2025 CO2 [Moles/Vol] 19.9 mmol/L Low 21.0-32.0 [facility] Comment on above: Performed By: #### L 100.0100, L500.2500, L501.4021, L501.5200 ####[facility] [address] [place], [address] Carotid Duplex Ultrasoundon 04-29-2025 Carotid Duplex Ultrasound Normal [facility] Chloride assayOrdered By: Honey Canales on 04-29-2025 Chloride [Moles/Vol] 100 mmol/L Normal 98-108 [facility] Comment on above: Performed By: #### L 100.0100, L500.2500, L501.4021, L501.5200 ####[facility] [address] [place], [address] Echo Completeon 04-29-2025 Echo Complete Normal [facility] Emergency Department Summary on 04-29-2025 Emergency Department Summary Normal [facility] Eosinophil percentageOrdered By: Yola Canales on 04-29-2025 Eosinophils/100 WBC (Bld) 2.8 % Normal 0-5 [facility] Comment on above: Performed By: #### L 100.0100, L500.2500, L501.4021, L501.5200 ####[facility] [address] [place], [address] Erythrocyte distribution wid th ratioOrdered By: Yola Canales on 04-29-2025 Erythrocyte distribution width (RBC) [Ratio] 14.9 % High 11.6-14.6 [facility] Comment on above: Performed By: #### L 100.0100, L500.2500, L501.4021, L501.5200 ####[facility] [address] [place], [address] Erythrocyte distribution wid th standard deviationOrdered By: Yola Canales on 04-29-2025 Erythrocyte distribution width (RBC) [Ratio] 44.9 fl High 35.1-43.9 [facility] Glomerular filtration rate ( GFR) estimation/1.73 sq m using serum, plasma, or whole bOrdered By: Yola Canales on 04-29-2025 GFR/1.73 sq M.predicted among non-blacks MDRD (S/P/Bld) [Vol rate/Area] 61 mL/min/{1.73_m2} Normal >60 [facility] Comment on above: mL/min/1.73m2 CKD-EP I Creatinine Equation (2020) Result Comment: mL/m in/1.73m2 CKD-EPI Creatinine Equation (2020) Performed By: #### L 100.0100, L500.2500, L501.4021, L501.5200 ####[facility] [address] [place], [address] H AND P Exam - Hospitaliston 04-29-2025 H&P Exam - Hospitalist Normal [facility] Hemoglobin measurementOrdere d By: Yola Canales on 04-29-2025 Hemoglobin (Bld) [Mass/Vol] 14.3 g/dL Normal 13.0-16.5 [facility] Comment on above: Performed By: #### L 100.0100, L500.2500, L501.4021, L501.5200 ####[facility] [address] [place], [address] Immature granulocytes/100 WB C Auto (Bld)Ordered By: Yola Canales on 04-29-2025 Immature granulocytes/100 WBC (Bld) 0.400 % 0.0-0.9 [facility] Comment on above: IG% - Immature Granu locytes (promyelocytes, myelocytes and metamyelocytes) > 1% indicates that a LEFT SHIFT is Present. L501.4021on 04-29-2025 Trop T High Sen 43 ng/L High <=22 [facility] Comment on above: Performed By: #### L 100.0100, L500.2500, L501.4021, L501.5200 ####[facility] [address] [place], [address] MCV (mean corpuscular volume ) determinationOrdered By: Yola Canales on 04-29-2025 MCV (RBC) [Entitic vol] 81.8 fL Normal 80-94 [facility] Comment on above: Performed By: #### L 100.0100, L500.2500, L501.4021, L501.5200 ####[facility] [address] [place], [address] Magnesiumon 04-29-2025 Magnesium [Mass/Vol] 2.3 mg/dL High 1.5-2.2 [facility] Comment on above: Performed By: #### L 100.0100, L500.2500, L501.4021, L501.5200 ####[facility] [address] [place], [address] Magnesium measurement (mass/ volume)Ordered By: Yola Canales on 04-29-2025 Magnesium (Unsp spec) [Mass/Vol] 2.3 mg/dL High 1.5-2.2 [facility] Mean corpuscular hemoglobin (MCH) determinationOrdered By: Yola Canales on 04-29-2025 MCH (RBC) [Entitic mass] 27.3 pg Normal 27.0-32.0 [facility] Comment on above: Performed By: #### L 100.0100, L500.2500, L501.4021, L501.5200 ####[facility] [address] [place], [address] Mean corpuscular hemoglobin concentration (MCHC) determinationOrdered By: Yola Canales on 04-29-2025 MCHC (RBC) [Mass/Vol] 33.4 g/dL Normal 32-36 [facility] Comment on above: Performed By: #### L 100.0100, L500.2500, L501.4021, L501.5200 ####[facility] [address] [place], [address] Mean platelet volume determi nationOrdered By: Yola Canales on 04-29-2025 Platelet mean volume (Bld) [Entitic vol] 10.5 fL Normal 6.2-12.0 [facility] Comment on above: Performed By: #### L 100.0100, L500.2500, L501.4021, L501.5200 ####[facility] [address] [place], [address] Monocyte percentageOrdered B y: Yola Canales on 04-29-2025 Monocytes/100 WBC (Bld) 10.5 % High 0-10 [facility] Comment on above: Performed By: #### L 100.0100, L500.2500, L501.4021, L501.5200 ####[facility] [address] [place], [address] Neutrophil percentageOrdered By: Yola Canales on 04-29-2025 Neutrophils/100 WBC (Bld) 71.4 % High 47-70 [facility] Comment on above: Performed By: #### L 100.0100, L500.2500, L501.4021, L501.5200 ####[facility] [address] [place], [address] Nucleated red blood cell per centageOrdered By: Yola Canales on 04-29-2025 Nucleated RBC/100 WBC (Bld) [Ratio] 0 % 0-5 [facility] Platelet countOrdered By: Honey Canales on 04-29-2025 Platelets (Bld) [#/Vol] 327 10*3/uL Normal 150-450 [facility] Comment on above: Performed By: #### L 100.0100, L500.2500, L501.4021, L501.5200 ####[facility] [address] [place], [address] Potassium measurement (mass/ volume)Ordered By: Yola Canales on 04-29-2025 Potassium (Unsp spec) [Mass/Vol] 4.1 mmol/L 3.3-5.1 [facility] Serum creatinine measurement (mass/volume)Ordered By: Yola Canales on 04-29-2025 Creatinine [Mass/Vol] 1.20 mg/dL Normal 0.70-1.20 [facility] Comment on above: Performed By: #### L 100.0100, L500.2500, L501.4021, L501.5200 ####[facility] [address] [place], [address] Serum glucose measurement (m ass/volume)Ordered By: Yola Canales on 04-29-2025 Glucose [Mass/Vol] 155 mg/dL High 70-99 [facility] Comment on above: Performed By: #### L 100.0100, L500.2500, L501.4021, L501.5200 ####[facility] [address] [place], [address] Serum or plasma calcium nahomy urement (mass/volume)Ordered By: Yola Canales on 04-29-2025 Calcium [Mass/Vol] 9.3 mg/dL Normal 7.6-11.0 [facility] Comment on above: Performed By: #### L 100.0100, L500.2500, L501.4021, L501.5200 ####[facility] [address] [place], [address] Serum or plasma urea nitroge n measurement (mass/volume)Ordered By: Yola Canales on 04-29-2025 Urea nitrogen [Mass/Vol] 24 mg/dL High 4-19 [facility] Comment on above: Performed By: #### L 100.0100, L500.2500, L501.4021, L501.5200 ####[facility] [address] [place], [address] Sodium levelOrdered By: Marcelo Canales on 04-29-2025 Sodium [Moles/Vol] 135 mmol/L Normal 133-145 [facility] Comment on above: Performed By: #### L 100.0100, L500.2500, L501.4021, L501.5200 ####[facility] [address] [place], [address] Troponin T HS 2 HRon 025 Trop T High Sen Normal <=22 [facility] Comment on above: Result Comment: DUPL ICATE ORDER Performed By: #### L 499.0042 ####[facility] [address] [place], [address] Trop T High Sen 42 ng/L High <=22 [facility] Comment on above: Performed By: #### L 499.0042 ####[facility] [address] [place], [address] Troponin T HS 4 HRon 04-29-2 025 Trop T High Sen Normal <=22 [facility] Comment on above: Result Comment: DUPL ICATE ORDER Performed By: #### L 499.0043 ####[facility] [address] [place], [address] Trop T High Sen 38 ng/L High <=22 [facility] Comment on above: Performed By: #### L 499.0043 ####[facility] [address] [place], [address] Troponin T.cardiac [Mass/vol ume] in Serum or Plasma by High sensitivity methodOrdered By: Yola Canales on 04-29-2025 Troponin T.cardiac High sensitivity method [Mass/Vol] 38 ng/L High <22 [facility] Troponin T.cardiac High sensitivity method [Mass/Vol] 42 ng/L High <22 [facility] Troponin T.cardiac High sensitivity method [Mass/Vol] 43 ng/L High <22 [facility] Comment on above: Delta: 49 on 5-2300 White blood cell (WBC) count Ordered By: Yola Canales on 04-29-2025 WBC (Bld) [#/Vol] 10.3 10*3/uL Normal 4.4-11.0 [facility] Comment on above: Performed By: #### L 100.0100, L500.2500, L501.4021, L501.5200 ####[facility] [address] [place], [address] GAGANDEEP w/ Reflex Mult Confirmon 04-10-2025 ANTI-DNA (DS)AB TNP Normal [facility] Comment on above: Performed By: #### L 3100.5450, L503.6550, L505.7010, L3300.1200, L4600.0100 ####[facility] [address] [place], [address] ANTI-SS-A TNP Normal [facility] Comment on above: Performed By: #### L 3100.5450, L503.6550, L505.7010, L3300.1200, L4600.0100 ####[facility] [address] [place], [address] ANTI-SS-B TNP Normal [facility] Comment on above: Performed By: #### L 3100.5450, L503.6550, L505.7010, L3300.1200, L4600.0100 ####[facility] [address] [place], [address] ANCAon 04-09-2025 Atypical pANCA <1:20 Normal Neg:<1:20 [facility] Comment on above: Result Comment: The atypical pANCA pattern has been observed in asignificant percentage of patients with ulcerative colitis,primary sclerosing cholangitis and autoimmune hepatitis. Performed By: #### L 3100.5450, L503.6550, L505.7010, L3300.1200, L4600.0100 ####[facility] [address] [place], [address] Cytoplasmic Ab <1:20 Normal Neg:<1:20 [facility] Comment on above: Performed By: #### L 3100.5450, L503.6550, L505.7010, L3300.1200, L4600.0100 ####[facility] [address] [place], [place], [id number] Perinuclear Ab. <1:20 Normal Neg:<1:20 [facility] Comment on above: Result Comment: The presence of positive fluorescence exhibiting P-ANCA orC-ANCA patterns alone is not specific for the diagnosis ofWegener's Granulomatosis (WG) or microscopic polyangiitis.Decisions about treatment should not be based solely onANCA IFA results. The [employer] Consensusrecommends follow up testing of positive sera with both MN-3 and MPO-ANCA enzyme immunoassays. As many as 5% serumsamples are positive only by EIA. Ref. AM J Clin Dbusfx0425;111:507-513. Performed By: #### L 3100.5450, L503.6550, L505.7010, L3300.1200, L4600.0100 ####[facility] [address] [place], [address] CCP IgG Antibodieson 025 CCP IgG Ab. 8 units Normal 0-19 [facility] Comment on above: Result Comment: Nega tive <20 Weak positive 20 - 39 Moderate positive 40 - 59 Strong positive >59Performed at: [address] [id number] Director: Naresh Pruitt PhD, Phone: [phone] Performed By: #### L 3100.5450, L503.6550, L505.7010, L3300.1200, L4600.0100 ####[facility] [address] [place], [place], [address] Ferritinon 04-08-2025 Ferritin [Mass/Vol] 44 ng/mL Normal 37-417 [facility] Comment on above: Performed By: #### L 3100.5450, L503.6550, L505.7010, L3300.1200, L4600.0100 ####[facility] [address] [place], [place], [address] Pulmonary Visit Reporton Pulmonary Visit Report Normal [facility] Rheumatoid Factoron 04-08-20 25 RHEUMATOID FAC < 10.0 Normal <15 [facility] Comment on above: Performed By: #### L 3100.5450, L503.6550, L505.7010, L3300.1200, L4600.0100 ####[facility] [address] [place], [place], [address] Serum DNA double strand anti body assay (units/volume)Ordered By: ARSALAN Macario on 04-08-2025 DNA double strand Ab Qn (S) [facility] Comment on above: Test not performed Serum Scl-70 antibody assay (units/volume)Ordered By: ARSALAN Macario on 04-08-2025 SCL-70 extractable nuclear Ab Qn (S) [facility] Comment on above: Test not performed Serum classic neutrophil cyt oplasmic antibody assay (units/volume)Ordered By: ARSALAN Macario on 04-08-2025 Neutrophil cytoplasmic Ab.classic Qn (S) <1:20 titer Neg:<1:20 [facility] Serum or plasma cyclic citru llinated peptide IgG antibody assay (units/volume)Ordered By: ARSALAN Macario on 04-08-2025 Cyclic citrullinated peptide IgG Qn 8 units 0-19 [facility] Comment on above: Negative <20 Weak po sitive 20 - 39 Moderate positive 40 - 59 Strong positive >59Performed at: [facility] [id number] [place], [place] [id number] Director: Naresh Pruitt PhD, Phone: [phone] Serum or plasma ferritin harsha surement (mass/volume)Ordered By: ARSALAN Macario on 04-08-2025 Ferritin [Mass/Vol] 44 ng/mL 37-417 [facility] Serum perinuclear neutrophil cytoplasmic antibody titer by immunofluorescenceOrdered By: ARSALAN Macario on 04-08-2025 Neutrophil cytoplasmic Ab.perinuclear IF (S) [Titer] <1:20 titer Neg:<1:20 [facility] Comment on above: The presence of posi tive fluorescence exhibiting P-ANCA orC-ANCA patterns alone is not specific for the diagnosis ofWegener's Granulomatosis (WG) or microscopic polyangiitis.Decisions about treatment should not be based solely onANCA IFA results. The [employer] Consensusrecommends follow up testing of positive sera with both MN-3 and MPO-ANCA enzyme immunoassays. As many as 5% serumsamples are positive only by EIA. Ref. AM J Clin Ayrdhx2993;111:507-513. Serum rheumatoid factor dete ctionOrdered By: ARSALAN Macario on 04-08-2025 Rheumatoid factor Ql (S) < 10.0 IU/mL <15 [facility] FAISAL ALARCON ([id number]) 1945 M Date Time Provider Department 04/02/25 MATHIEU VIRGEN [facility] During your visit today, we recorded the following information about you: Janet King MA 04/02/2025 4:39 PM Signed Type of form: Prescription Assistance Form received via walk in When form is completed, Fax form to [facility] Form has been forwarded to Physician Desk: Dr. Virgen Prescription pended to go to [facility], as listed on form. JOSE ARMANDO Tee William J, MD 04/03/2025 10:45 AM Signed Jaylene Otoole LPN 04/03/2025 11:11 AM Signed Faxed application. Allergies As of Date: 04/02/2025 Noted Allergy Reaction AMOXICILLIN 05/11/2005 Comments: generalized erythema Date Reviewed: 01/22/2025 Reviewed by: Pricilla Kuhn LPN - Fully Assessed Reason for Visit: Patient Assistance [4406] Cmt: Ceci Kapadia form for [facility] Visit Diagnosis:Type 2 diabetes mellitus [...] 06/06/2023 Diagno (more content not included)... Normal [facility] Chest without Contraston Chest without Contrast Normal [facility] 6 Minute Walk Teston 025 6 Minute Walk Test Normal [facility] 02-11-[address] [facility] Telephone ([facility]) ----- FAISAL ALARCON ([id number]) 1945 Osvaldo Date Time Provider Department 02/11/25 MATHIEU VIRGEN [...] 06/06/2023 Di (more content not included)... Normal [facility] Ema 02-06-2025 [facility] Telephone ([facility]) ----- FAISAL ALARCON ([id number]) 1945 M Date Time Provider Department 02/06/25 MATHIEU VIRGEN During your visit today, we recorded the following information about you: Jaylene Henley LPN 02/06/2025 1:16 PM Signed Scan on 02/05/2025 4:36 PM by Provider, External, PA-C: Hematology Allergies As of Date: 02/06/2025 Noted [...] afternoon. Ordered by cardiology - Blood-Glucose Sensor ([employer] G7 SENSOR) sayra Apply new sensor every [...] 06/06/2023 Diagnosed: 06/06/2023 Nonobstructive atherosclerosis of coronary luis*more content not included)... Normal [facility] CBC W/Diff, Automatedon 05-2 PATH REV Reviewed Normal [facility] Comment on above: Result Comment: SEE REPORT IN PATIENT'S EMR AMENDED REPORT 02/05/25 1603 PATH REV previously reported as: January Performed By: #### L 100.0100 ####[facility] [address] [place], [address] CNOVon 01-26-2025 CNOV Office Visit ([facility] ) ----- FAISAL ALARCON ([id number]) 1945 M Date Time Provider Department 01/26/25 2:40 PM MATHIEU VIRGEN [facility] During your visit today, we recorded [...] every afternoon. Ordered by cardiology Blood-Glucose Sensor ([employer] G7 SENSOR) sayra Apply new sensor every [...] Sister Cancer (more content not included)... Normal [facility] Cardiology Visit Reporton Cardiology Visit Report Normal [facility] CNOVon 01-22-2025 CNOV Office Visit ([facility]IWS ) ----- FAISAL ALARCON ([id number]) 1945 M Date Time Provider Department 5/8/25 3:15 PM JAMAL MACE During your visit today, we recorded the [...] every afternoon. Ordered by cardiology Blood-Glucose Sensor ([employer] G7 SENSOR) sayra Apply new sensor every [...] mouth once (more content not included)... Normal [facility] ----- FAISAL ALARCON ([id number]) 1945 M Date Time Provider Department 01/22/25 MATHIEU VIRGEN [facility] During your visit today, we recorded the following information about you: Liyah Monroy RN 01/22/2025 8:23 AM Signed Jacki with [facility] called in and need the [...] afternoon. Ordered by cardiology - Blood-Glucose Sensor ([employer] G7 SENSOR) sayra Apply new sensor every [...] Mild dehy (more content not included)... Normal [facility] XR FOOT 3V AP/LAT/OBL LTon 0 [...] Stable 2nd through 4th metatarsal neck fractures Co Director: PSCB Transcribe Date/Time: Jan 28 2025 7:42A Dictated by : DANELLE BHAGAT MD This examination was interpreted and the report reviewed and electronically signed by: DANELLE BHAGAT MD on Jan 28 2025 7:45AM EST [id number] Normal [facility] Absolute lymphocyte countOrd ered By: Mathieu Virgen on 01-21-2025 Lymphocytes Auto (Unsp spec) [#/Vol] 1.71 10*3/uL 0.83-4.51 [facility] Absolute neutrophil countOrd ered By: Mathieu Virgen on 01-21-2025 Neutrophils (Bld) [#/Vol] 7.3 10*3/uL 2.0-7.7 [facility] Automated lymphocyte count a s percentage of total leukocytesOrdered By: Mathieu Virgen on 01-21-2025 Lymphocytes/100 WBC Auto (Unsp spec) 16.5 % Low 19-41 [facility] Basophil percentageOrdered B y: Mathieu Virgen on 01-21-2025 Basophils/100 WBC (Bld) 0.3 % 0-1 [facility] Eosinophil percentageOrdered By: Mathieu Virgen on 01-21-2025 Eosinophils/100 WBC (Bld) 2.4 % 0-5 [facility] Erythrocyte distribution wid th ratioOrdered By: Mathieu Virgen on 01-21-2025 Erythrocyte distribution width (RBC) [Ratio] 15.9 % High 11.6-14.6 [facility] Erythrocyte distribution wid th standard deviationOrdered By: Mathieu Virgen on 01-21-2025 Erythrocyte distribution width (RBC) [Ratio] 47.5 fl High 35.1-43.9 [facility] Hematocrit Auto (Bld) [Volum e fraction]Ordered By: Mathieu Virgen on 01-21-2025 Hematocrit (Bld) [Volume fraction] 43.5 % 40-54 [facility] Hemoglobin measurementOrdere d By: Mahtieu Virgen on 01-21-2025 Hemoglobin (Bld) [Mass/Vol] 14.4 g/dL 13.0-16.5 [facility] Immature granulocytes/100 WB C Auto (Bld)Ordered By: Mathieu Virgen on 01-21-2025 Immature granulocytes/100 WBC (Bld) 0.500 % 0.0-0.9 [facility] Comment on above: IG% - Immature Granu locytes (promyelocytes, myelocytes and metamyelocytes) > 1% indicates that a LEFT SHIFT is Present. MCV (mean corpuscular volume ) determinationOrdered By: Mathieu Virgen on 01-21-2025 MCV (RBC) [Entitic vol] 81.5 fL 80-94 [facility] Mean corpuscular hemoglobin (MCH) determinationOrdered By: Mathieu Virgen 01-21-2025 MCH (RBC) [Entitic mass] 27.0 pg 27.0-32.0 [facility] Mean corpuscular hemoglobin concentration (MCHC) determinationOrdered By: Mathieu Virgen on 01-21-2025 MCHC (RBC) [Mass/Vol] 33.1 g/dL 32-36 [facility] Mean platelet volume determi nationOrdered By: Mathieu Virgen on 01-21-2025 Platelet mean volume (Bld) [Entitic vol] 10.6 fL 6.2-12.0 [facility] Monocyte percentageOrdered B y: Mathieu Virgen on 01-21-2025 Monocytes/100 WBC (Bld) 10.2 % High 0-10 [facility] Neutrophil percentageOrdered By: Mathieu Virgen on 01-21-2025 Neutrophils/100 WBC (Bld) 70.1 % High 47-70 [facility] Nucleated red blood cell per centageOrdered By: Mathieu Virgen on 01-21-2025 Nucleated RBC/100 WBC (Bld) [Ratio] 0 % 0-5 [facility] Platelet countOrdered By: Shannon Virgen on 01-21-2025 Platelets (Bld) [#/Vol] 241 10*3/uL 150-450 [facility] Pulmonary Visit Reporton Pulmonary Visit Report Normal [facility] RBC Auto (Bld) [#/Vol]Ordere d By: Mathieu Virgen on 01-21-2025 RBC (Bld) [#/Vol] 5.34 10*6/uL 4.6-6.2 [facility] Review by pathologistOrdered By: Mathieu Virgen on 01-21-2025 Pathologist review Rey (Unsp spec) [Interp] Tamara bernard [facility] Pathologist review Rey (Unsp spec) [Interp] Reviewed [facility] Comment on above: Previous reported re sult: Tamara bernard Edited by: IRON on 02/05/25:1603SEE REPORT IN PATIENT'S EMR AMENDED REPORT 02/05/25 1603 PATH REV previously reported as: Tamara bernard White blood cell (WBC) count Ordered By: Mathieu Virgen on 01-21-2025 WBC (Bld) [#/Vol] 10.4 10*3/uL 4.4-11.0 [facility] Emergency Department Summary on 01-20-2025 Emergency Department Summary Normal [facility] L499.0042on 01-20-2025 Trop T High Sen 51 ng/L High <=22 [facility] Comment on above: Order Comment: *THIS IS ACTUALLY 4 HOUR TROP* Result Comment: Crit ical Result(s) Called at: by:??Results read back bysame. Performed By: #### L 499.0042 ####[facility] [address] [place], [place], [address] L499.0043on 01-20-2025 Trop T High Sen 53 ng/L High <=22 [facility] Comment on above: Order Comment: *THIS IS ACTUALLY 2 HOUR TROP* Result Comment: Crit ical Result(s) Called at: 0349 by: LAUREN DAVIS Results read back by same. AMENDED REPORT 01/20/25350 Trop T HS 4HR previously reported as: 51 H ng/L Performed By: #### L 499.0043 ####[facility] [address] [place], [place], [address] Troponin T.cardiac [Mass/vol ume] in Serum or Plasma by High sensitivity methodOrdered By: Abraham Tierney on 01-20-2025 Troponin T.cardiac High sensitivity method [Mass/Vol] 51 ng/L High <22 [facility] Comment on above: Critical Result(s) C alled at: by: Results read back by same. Troponin T.cardiac High sensitivity method [Mass/Vol] 53 ng/L High <22 [facility] Comment on above: Critical Result(s) C alled at: 0349 by: LAUREN DAVIS Results read back by same.Previous reported result: 51 ng/LEdited by: MIRA on 01/20/25:0351 AMENDED REPORT 01/20/25350 Trop T HS 4HR previously reported as: 51 H ng/L 12 Lead EKGon 01-19-2025 12 Lead EKG Normal [facility] Absolute lymphocyte countOrd ered By: Abraham Tierney on 01-19-2025 Lymphocytes Auto (Unsp spec) [#/Vol] 2.50 10*3/uL 0.83-4.51 [facility] Absolute neutrophil countOrd ered By: Abraham Tierney on 01-19-2025 Neutrophils (Bld) [#/Vol] 8.3 10*3/uL High 2.0-7.7 [facility] Anion gap in Serum or Plasma Ordered By: Abraham Tierney on 01-19-2025 Anion gap [Moles/Vol] 14 mmol/L 5-15 [facility] Automated blood erythrocyte countOrdered By: Abraham Tierney on 01-19-2025 RBC (Bld) [#/Vol] 5.58 10*6/uL Normal 4.6-6.2 [facility] Comment on above: Performed By: #### L 100.0100, L500.2500, L501.4021 ####[facility] [address] [place], [address] Automated blood hematocrit ( percentage)Ordered By: Abraham Tierney on 01-19-2025 Hematocrit (Bld) [Volume fraction] 44.8 % Normal 40-54 [facility] Comment on above: Performed By: #### L 100.0100, L500.2500, L501.4021 ####[facility] [address] [place], [address] Automated lymphocyte count a s percentage of total leukocytesOrdered By: Abraham Tierney on 01-19-2025 Lymphocytes/100 WBC Auto (Unsp spec) 19.7 % 19-41 [facility] BUN/creatinine ratioOrdered By: Abraham Tierney on 01-19-2025 Urea nitrogen/Creatinine [Mass ratio] 25.0 mg/mg High 10- [facility] Basic Metabolic Profile (BMP )on 01-19-2025 BUN/CRE 25.0 RATIO High - [facility] Comment on above: Performed By: #### L 100.0100, L500.2500, L501.4021 ####[facility] [address] [place], [address] ECRCL 64.50 ml/min Normal 50-250 [facility] Comment on above: Performed By: #### L 100.0100, L500.2500, L501.4021 ####[facility] [address] [place], [address] GAP 14 Normal 5-15 [facility] Comment on above: Performed By: #### L 100.0100, L500.2500, L501.4021 ####[facility] [address] [place], [address] Potassium [Moles/Vol] 3.9 mmol/L Normal 3.3-5.1 [facility] Comment on above: Performed By: #### L 100.0100, L500.2500, L501.4021 ####[facility] [address] [place], [address] Basophil percentageOrdered B y: Abraham Le on 01-19-2025 Basophils/100 WBC (Bld) 0.5 % Normal 0-1 [facility] Comment on above: Performed By: #### L 100.0100, L500.2500, L501.4021 ####[facility] [address] [place], [address] CBC W/Diff, Automatedon 05 Absolute Lymph 2.50 X10 3/uL Normal 0.83-4.51 [facility] Comment on above: Performed By: #### L 100.0100, L500.2500, L501.4021 ####[facility] [address] [place], [address] Absolute Neut 8.3 X10 3/uL High 2.0-7.7 [facility] Comment on above: Performed By: #### L 100.0100, L500.2500, L501.4021 ####[facility] [address] [place], [address] IG% 0.500 Normal 0.0-0.9 [facility] Comment on above: Result Comment: IG% - Immature Granulocytes (promyelocytes, myelocytes andmetamyelocytes) > 1% indicates that a LEFT SHIFT is Present. Performed By: #### L 100.0100, L500.2500, L501.4021 ####[facility] [address] [place], [address] Lymphocytes/100 WBC (Bld) 19.7 % Normal 19-41 [facility] Comment on above: Performed By: #### L 100.0100, L500.2500, L501.4021 ####[facility] [address] [place], [address] Nucleated RBC (Bld) [#/Vol] 0 10*3/uL Normal 0-5 [facility] Comment on above: Performed By: #### L 100.0100, L500.2500, L501.4021 ####[facility] [address] [place], [address] RDW SD 46.3 fl High 35.1-43.9 [facility] Comment on above: Performed By: #### L 100.0100, L500.2500, L501.4021 ####[facility] [address] [place], [address] Carbon dioxide, total [Moles /volume] in Central venous bloodOrdered By: Abraham Tierney on 01-19-2025 CO2 [Moles/Vol] 22.5 mmol/L Normal 21.0-32.0 [facility] Comment on above: Performed By: #### L 100.0100, L500.2500, L501.4021 ####[facility] [address] [place], [address] Chest 1 View (Portable)on Chest 1 View (Portable) Normal [facility] Chloride assayOrdered By: Pineda Tierney on 01-19-2025 Chloride [Moles/Vol] 98 mmol/L Normal 98-108 [facility] Comment on above: Performed By: #### L 100.0100, L500.2500, L501.4021 ####[facility] [address] [place], [address] Eosinophil percentageOrdered By: Abraham Tierney on 01-19-2025 Eosinophils/100 WBC (Bld) 2.7 % Normal 0-5 [facility] Comment on above: Performed By: #### L 100.0100, L500.2500, L501.4021 ####[facility] [address] [place], [address] Erythrocyte distribution wid th ratioOrdered By: Abraham Tierney on 01-19-2025 Erythrocyte distribution width (RBC) [Ratio] 16.0 % High 11.6-14.6 [facility] Comment on above: Performed By: #### L 100.0100, L500.2500, L501.4021 ####[facility] [address] [place], [address] Erythrocyte distribution wid th standard deviationOrdered By: Abraham Tierney on 01-19-2025 Erythrocyte distribution width (RBC) [Ratio] 46.3 fl High 35.1-43.9 [facility] Glomerular filtration rate ( GFR) estimation/1.73 sq m using serum, plasma, or whole bOrdered By: Abraham Tierney on 01-19-2025 GFR/1.73 sq M.predicted among non-blacks MDRD (S/P/Bld) [Vol rate/Area] 58 mL/min/{1.73_m2} Low >60 [facility] Comment on above: mL/min/1.73m2 CKD-EP I Creatinine Equation (2020) Result Comment: mL/m in/1.73m2 CKD-EPI Creatinine Equation (2020) Performed By: #### L 100.0100, L500.2500, L501.4021 ####[facility] [address] [place], [address] Hemoglobin measurementOrdere d By: Abraham Tierney on 01-19-2025 Hemoglobin (Bld) [Mass/Vol] 15.0 g/dL Normal 13.0-16.5 [facility] Comment on above: Performed By: #### L 100.0100, L500.2500, L501.4021 ####[facility] [address] [place], [address] Immature granulocytes/100 WB C Auto (Bld)Ordered By: Abraham Tierney on 01-19-2025 Immature granulocytes/100 WBC (Bld) 0.500 % 0.0-0.9 [facility] Comment on above: IG% - Immature Granu locytes (promyelocytes, myelocytes and metamyelocytes) > 1% indicates that a LEFT SHIFT is Present. L501.4021on 01-19-2025 Trop T High Sen 49 ng/L High <=22 [facility] Comment on above: Performed By: #### L 100.0100, L500.2500, L501.4021 ####[facility] [address] [place], [address] MCV (mean corpuscular volume ) determinationOrdered By: Abraham Tierney on 01-19-2025 MCV (RBC) [Entitic vol] 80.3 fL Normal 80-94 [facility] Comment on above: Performed By: #### L 100.0100, L500.2500, L501.4021 ####[facility] [address] [place] [place], [address] Mean corpuscular hemoglobin (MCH) determinationOrdered By: Abraham Tierney on 01-19-2025 MCH (RBC) [Entitic mass] 26.9 pg Low 27.0-32.0 [facility] Comment on above: Performed By: #### L 100.0100, L500.2500, L501.4021 ####[facility] [address] [place], [address] Mean corpuscular hemoglobin concentration (MCHC) determinationOrdered By: Abraham Tierney on 01-19-2025 MCHC (RBC) [Mass/Vol] 33.5 g/dL Normal 32-36 [facility] Comment on above: Performed By: #### L 100.0100, L500.2500, L501.4021 ####[facility] [address] [place], [address] Mean platelet volume determi nationOrdered By: Abraham Tierney on 01-19-2025 Platelet mean volume (Bld) [Entitic vol] 10.9 fL Normal 6.2-12.0 [facility] Comment on above: Performed By: #### L 100.0100, L500.2500, L501.4021 ####[facility] [address] [place], [address] Monocyte percentageOrdered B y: Abraham Tierney on 01-19-2025 Monocytes/100 WBC (Bld) 11.4 % High 0-10 [facility] Comment on above: Performed By: #### L 100.0100, L500.2500, L501.4021 ####[facility] [address] [place], [address] Neutrophil percentageOrdered By: Abraham Tierney on 01-19-2025 Neutrophils/100 WBC (Bld) 65.2 % Normal 47-70 [facility] Comment on above: Performed By: #### L 100.0100, L500.2500, L501.4021 ####[facility] [address] [place], [address] Nucleated red blood cell per centageOrdered By: Abraham Tierney on 01-19-2025 Nucleated RBC/100 WBC (Bld) [Ratio] 0 % 0-5 [facility] Platelet countOrdered By: Pineda Tierney on 01-19-2025 Platelets (Bld) [#/Vol] 273 10*3/uL Normal 150-450 [facility] Comment on above: Performed By: #### L 100.0100, L500.2500, L501.4021 ####[facility] [address] [place], [address] Potassium measurement (mass/ volume)Ordered By: Abraham Tierney on 01-19-2025 Potassium (Unsp spec) [Mass/Vol] 3.9 mmol/L 3.3-5.1 [facility] Serum creatinine measurement (mass/volume)Ordered By: Abraham Tierney on 01-19-2025 Creatinine [Mass/Vol] 1.25 mg/dL High 0.70-1.20 [facility] Comment on above: Performed By: #### L 100.0100, L500.2500, L501.4021 ####[facility] [address] [place], [address] Serum glucose measurement (m ass/volume)Ordered By: Abraham Tierney on 01-19-2025 Glucose [Mass/Vol] 156 mg/dL High 70-99 [facility] Comment on above: Performed By: #### L 100.0100, L500.2500, L501.4021 ####[facility] [address] [place], [address] Serum or plasma calcium nahomy urement (mass/volume)Ordered By: Abraham Tierney on 01-19-2025 Calcium [Mass/Vol] 9.9 mg/dL Normal 7.6-11.0 [facility] Comment on above: Performed By: #### L 100.0100, L500.2500, L501.4021 ####[facility] [address] [place], [address] Serum or plasma urea nitroge n measurement (mass/volume)Ordered By: Abraham Tierney on 01-19-2025 Urea nitrogen [Mass/Vol] 31 mg/dL High 4-19 [facility] Comment on above: Performed By: #### L 100.0100, L500.2500, L501.4021 ####[facility] [address] [place], [address] Sodium levelOrdered By: Abraham Tierney on 01-19-2025 Sodium [Moles/Vol] 134 mmol/L Normal 133-145 [facility] Comment on above: Performed By: #### L 100.0100, L500.2500, L501.4021 ####[facility] [address] [place], [address] Troponin T.cardiac [Mass/vol ume] in Serum or Plasma by High sensitivity methodOrdered By: Abraham Tierney on 01-19-2025 Troponin T.cardiac High sensitivity method [Mass/Vol] 49 ng/L High <22 [facility] White blood cell (WBC) count Ordered By: Abraham Tierney on 01-19-2025 WBC (Bld) [#/Vol] 12.7 10*3/uL High 4.4-11.0 [facility] Comment on above: Performed By: #### L 100.0100, L500.2500, L501.4021 ####[facility] [address] [place], [place], [address] CNOVon 01-12-2025 [facility] ----- FAISAL ALARCON ([id number]) 1945 M Date Time Provider Department 01/12/25 5:00 PM MATHIEU VIRGEN FAMWS During your visit today, we recorded the [...] chronic condition (HCC) 04/23/2017 Well controlled, Dr Abeeb. Stable for years. Sleep apnea 03/31/2009 Pt [...] pk-yrs) Ty (more content not included)... Normal [facility] 01-12-2025 CNPN Telephone (FAMPWS) ----- FAISAL ALARCON ([id number]) 1945 M Date Time Provider Department 01/12/25 MATHIEU VIRGEN [facility] During your visit today, we recorded [...] but she has questions re: what the masking machine feeder would do. Transferred to clinical for assistance. Mathieu Virgen MD 01/15/2025 12:05 PM Signed Let her know fractures of this type need followed by a specialist to ensure they heal correctly. Liyah Monroy, RN 01/15/2025 12:55 PM Signed Pts daughter [...] [S92.909A] Order(s):CONSULT TO PODIATRY [9034] Order #: [id number]: 1 FUTURE POST - OP SHOE [[id number]] Order #: [id number] Prescriptions as of 01/16/2025 - carvedilol (COREG) [...] LANCETS) lancets (more content not included)... Normal [facility] XR FOOT 3V AP/LAT/OBL LTon 0 [...] joint. 3. Small plantar calcaneal heel spur. Co Director: BERNIE Transcribe Date/Time: Jan 12 2025 7:00P Dictated by : NARDA REEVES MD This examination was interpreted and the report reviewed and electronically signed by: NARDA REEVES MD on Jan 12 2025 7:02PM EST [id number] Normal [facility] XR Foot - left AP and Latera l and obliqueon 01-12-2025 IMPRESSION: 1. Acute appearing fracture through the distal neck of the second third and fourth metatarsals. 2. Mild bunion deformity with mild degenerative changes at the first MTP joint. 3. Small plantar calcaneal heel spur. Co Director: BERNIE Transcribe Date/Time: Jan 12 2025 7:00P [...] of the forefoot. DIVISION OF RADIOLOGY Provider, Dara Barahona - 01/12/2025 * * *Final Report* * [...] joint. 3. Small plantar calcaneal heel spur. Co Director: PSCB Transcribe Date/Time: Jan 12 2025 7:00P Dictated by : NARDA REEVES MD This examination was interpreted and the report reviewed and electronically signed by: NARDA REEVES MD on Jan 12 2025 7:02PM EST [facility] Radiology Study observation (narrative) Armando brannon [facility] XR Foot - left AP and Latera l and obliqueOrdered By: Cc Provider on 01-12-2025 [facility] Cardiology Visit Reporton Cardiology Visit Report Normal [facility] CNPSharlene 12-03-2024 CNPN Telephone (FAMPWS) ----- FAISAL ALARCON ([id number]) 1945 M Date Time Provider Department 12/03/24 MATHIEU VIRGEN During your visit today, we recorded the following information about you: Aly Marcial MA 12/03/2024 6:43 PM Signed Received PA from pharmacy for Fiasp Flextouch. Tried to complete through covermymeds but was instructed to call primetime at . Spoke to [facility] who will submit info to pharmacy [...] PM Signed Pt and caregiver notified via [employer] Allergies As of Date: 12/03/2024 Noted Allergy [...] [E66.812] 01/31/2021 (more content not included)... Normal [facility] CNOVon 12-02-2024 CNOV Office Visit (THERESAPWS ) ----- FAISAL ALARCON ([id number]) 1945 M Date Time Provider Department 12/02/24 3:40 PM MATHIEU VIRGENPWS During your visit today, we recorded the [...] Getting through [facility] insulin glargine (BASAGLAR KWIKPEN U-100 [...] mouth every 12 hours. Prescribed by outside embroiderer hand No current facility-administered medications for this visit. [...] testing as (more content not included)... Normal [facility] CBC-Complete Blood Cnt No Di ffon 11-29-2024 Erythrocyte distribution width (RBC) [Ratio] 17.0 % High 11.6-14.6 [facility] Comment on above: Performed By: #### L 502.0250, L500.4050, L500.4100, L501.9985, L100.0500 ####[facility] [address] [place], [address] Hematocrit (Bld) [Volume fraction] 44.1 % Normal 40-54 [facility] Comment on above: Performed By: #### L 502.0250, L500.4050, L500.4100, L501.9985, L100.0500 ####[facility] [address] [place], [address] Hemoglobin (Bld) [Mass/Vol] 14.6 g/dL Normal 13.0-16.5 [facility] Comment on above: Performed By: #### L 502.0250, L500.4050, L500.4100, L501.9985, L100.0500 ####[facility] [address] [place], [address] MCH (RBC) [Entitic mass] 26.6 pg Low 27.0-32.0 [facility] Comment on above: Performed By: #### L 502.0250, L500.4050, L500.4100, L501.9985, L100.0500 ####[facility] [address] [place], [address] MCHC (RBC) [Mass/Vol] 33.1 g/dL Normal 32-36 [facility] Comment on above: Performed By: #### L 502.0250, L500.4050, L500.4100, L501.9985, L100.0500 ####[facility] [address] [place], [address] MCV (RBC) [Entitic vol] 80.3 fL Normal 80-94 [facility] Comment on above: Performed By: #### L 502.0250, L500.4050, L500.4100, L501.9985, L100.0500 ####[facility] [address] [place], [address] Platelet mean volume (Bld) [Entitic vol] 11.2 fL Normal 6.2-12.0 [facility] Comment on above: Performed By: #### L 502.0250, L500.4050, L500.4100, L501.9985, L100.0500 ####[facility] [address] [place], [address] Platelets (Bld) [#/Vol] 282 10*3/uL Normal 150-450 [facility] Comment on above: Performed By: #### L 502.0250, L500.4050, L500.4100, L501.9985, L100.0500 ####[facility] [address] [place], [address] RBC (Bld) [#/Vol] 5.49 10*6/uL Normal 4.6-6.2 [facility] Comment on above: Performed By: #### L 502.0250, L500.4050, L500.4100, L501.9985, L100.0500 ####[facility] [address] [place], [address] RDW SD 49.3 fl High 35.1-43.9 [facility] Comment on above: Performed By: #### L 502.0250, L500.4050, L500.4100, L501.9985, L100.0500 ####[facility] [address] [place], [address] WBC (Bld) [#/Vol] 12.1 10*3/uL High 4.4-11.0 [facility] Comment on above: Performed By: #### L 502.0250, L500.4050, L500.4100, L501.9985, L100.0500 ####[facility] [address] [place], [address] Erythrocyte distribution wid th ratioOrdered By: Mathieu Virgen on 11-29-2024 Erythrocyte distribution width (RBC) [Ratio] 17.0 % High 11.6-14.6 [facility] Erythrocyte distribution wid th standard deviationOrdered By: Mathieu Virgen on 11-29-2024 Erythrocyte distribution width (RBC) [Entitic vol] 49.3 fL High 35.1-43.9 [facility] Erythrocyte distribution width (RBC) [Ratio] 49.3 fl High 35.1-43.9 [facility] Hematocrit Auto (Bld) [Volum e fraction]Ordered By: Mathieu Virgen on 11-29-2024 Hematocrit (Bld) [Volume fraction] 44.1 % 40-54 [facility] Hemoglobin measurementOrdere d By: Mathieu Virgen on 11-29-2024 Hemoglobin (Bld) [Mass/Vol] 14.6 g/dL 13.0-16.5 [facility] MCV (mean corpuscular volume ) determinationOrdered By: Mathieu Virgen on 11-29-2024 MCV (RBC) [Entitic vol] 80.3 fL 80-94 [facility] Mean corpuscular hemoglobin (MCH) determinationOrdered By: Mathieu Virgen on 11-29-2024 MCH (RBC) [Entitic mass] 26.6 pg Low 27.0-32.0 [facility] Mean corpuscular hemoglobin concentration (MCHC) determinationOrdered By: Mathieu Virgen on 11-29-2024 MCHC (RBC) [Mass/Vol] 33.1 g/dL 32-36 [facility] Mean platelet volume determi nationOrdered By: Mathieu Virgen on 11-29-2024 Platelet mean volume (Bld) [Entitic vol] 11.2 fL 6.2-12.0 [facility] Platelet countOrdered By: Shannon Virgen on 11-29-2024 Platelets (Bld) [#/Vol] 282 10*3/uL 150-450 [facility] RBC Auto (Bld) [#/Vol]Ordere d By: Mathieu Virgen on 11-29-2024 RBC (Bld) [#/Vol] 5.49 10*6/uL 4.6-6.2 [facility] White blood cell (WBC) count Ordered By: Mathieu Virgen on 11-29-2024 WBC (Bld) [#/Vol] 12.1 10*3/uL High 4.4-11.0 [facility] Albumin DL <= 20 mg/L (U) [M ass/Vol]Ordered By: Mathieu Virgen on 11-28-2024 Urine Random Microalbumin 17.0 mg/L NO RANGE EST. [facility] Anion gap in Serum or Plasma Ordered By: Mathieu Virgen on 11-28-2024 Anion gap [Moles/Vol] 13 mmol/L - [facility] BUN/creatinine ratioOrdered By: Mathieu Virgen on 11-28-2024 Urea nitrogen/Creatinine [Mass ratio] 19.6 mg/mg 10-20 [facility] Bilirubin, totalOrdered By: Mathieu Virgen on 11-28-2024 Bilirubin [Mass/Vol] 0.49 mg/dL 0.00-1.30 [facility] CNPNon 11-28-2024 CNPN Telephone (FAMPWS) ----- FAISAL ALARCON ([id number]) 1945 M Date Time Provider Department 11/28/24 MATHIEU VIRGENWS During your visit today, we recorded the following information about you: Miley Pemberton MA 11/28/2024 4:58 PM Signed Pt had blood work done. View External Labs - Chemistry [ID [id number]] View External Labs - Miscellaneous Lab [ID [id number]] View External Labs - Chemistry [ID [id number]] JOSE ARMANDO Corrales William J, MD 11/29/2024 [...] afternoon. Ordered by cardiology - Blood-Glucose Sensor ([employer] G7 SENSOR) sayra Apply new sensor every [...] mouth every 12 hours. Prescribed by outside embroiderer hand - insulin glargine (BASAGLAR KWIKPEN U-100 INSULIN) [...] fibrillation [ (more content not included)... Normal [facility] Calculated very low density lipoprotein (VLDL) cholesterol measurementOrdered By: Mathieu Virgen on 11-28-2024 Calculated very low density lipoprotein (VLDL) cholesterol measurement 22 mg/dL 5-40 [facility] VLDL Cholesterol 22 mg/dL 5-40 [facility] Carbon dioxide, total [Moles /volume] in Central venous bloodOrdered By: Mathieu Virgen on 11-28-2024 CO2 [Moles/Vol] 21.4 mmol/L 21.0-32.0 [facility] Chloride assayOrdered By: Shannon Virgen on 11-28-2024 Chloride [Moles/Vol] 101 mmol/L 98-108 [facility] Comprehensive Metabolic Prof ilon 11-28-2024 Albumin [Mass/Vol] 4.0 g/dL Normal 3.4-4.8 [facility] Comment on above: Order Comment: CBC Performed By: #### L 502.0250, L500.4050, L500.4100, L501.9985, L100.0500 ####[facility] [address] [place], [address] Albumin/Globulin [Mass ratio] 1.2 {ratio} Normal 0.9-2.4 [facility] Comment on above: Order Comment: CBC Performed By: #### L 502.0250, L500.4050, L500.4100, L501.9985, L100.0500 ####[facility] [address] [place], [address] ALK PHOS 110 U/L Normal 40-129 [facility] Comment on above: Order Comment: CBC Performed By: #### L 502.0250, L500.4050, L500.4100, L501.9985, L100.0500 ####[facility] [address] [place], [address] ALT [Catalytic activity/Vol] 15 U/L Normal <=46 [facility] Comment on above: Order Comment: CBC Performed By: #### L 502.0250, L500.4050, L500.4100, L501.9985, L100.0500 ####[facility] [address] [place], [address] AST [Catalytic activity/Vol] 19 U/L Normal <=37 [facility] Comment on above: Order Comment: CBC Performed By: #### L 502.0250, L500.4050, L500.4100, L501.9985, L100.0500 ####[facility] [address] [place], [address] Bilirubin [Mass/Vol] 0.49 mg/dL Normal 0.00-1.30 [facility] Comment on above: Order Comment: CBC Performed By: #### L 502.0250, L500.4050, L500.4100, L501.9985, L100.0500 ####[facility] [address] [place], [address] BUN/CRE 19.6 RATIO Normal 10-20 [facility] Comment on above: Order Comment: CBC Performed By: #### L 502.0250, L500.4050, L500.4100, L501.9985, L100.0500 ####[facility] [address] [place], [address] Calcium [Mass/Vol] 9.3 mg/dL Normal 7.6-11.0 [facility] Comment on above: Order Comment: CBC Performed By: #### L 502.0250, L500.4050, L500.4100, L501.9985, L100.0500 ####[facility] [address] [place], [address] Chloride [Moles/Vol] 101 mmol/L Normal 98-108 [facility] Comment on above: Order Comment: CBC Performed By: #### L 502.0250, L500.4050, L500.4100, L501.9985, L100.0500 ####[facility] [address] [place], [address] CO2 [Moles/Vol] 21.4 mmol/L Normal 21.0-32.0 [facility] Comment on above: Order Comment: CBC Performed By: #### L 502.0250, L500.4050, L500.4100, L501.9985, L100.0500 ####[facility] [address] [place], [address] Creatinine [Mass/Vol] 1.00 mg/dL Normal 0.70-1.20 [facility] Comment on above: Order Comment: CBC Performed By: #### L 502.0250, L500.4050, L500.4100, L501.9985, L100.0500 ####[facility] [address] [place], [address] GAP 13 Normal 5-15 [facility] Comment on above: Order Comment: CBC Performed By: #### L 502.0250, L500.4050, L500.4100, L501.9985, L100.0500 ####[facility] [address] [place], [address] GFR/1.73 sq M.predicted among non-blacks MDRD (S/P/Bld) [Vol rate/Area] 76 mL/min/{1.73_m2} Normal >60 [facility] Comment on above: Order Comment: CBC Result Comment: mL/m in/1.73m2 CKD-EPI Creatinine Equation (2020) Performed By: #### L 502.0250, L500.4050, L500.4100, L501.9985, L100.0500 ####[facility] [address] [place], [address] Globulin (S) [Mass/Vol] 3.3 g/dL Normal 2.2-4.2 [facility] Comment on above: Order Comment: CBC Performed By: #### L 502.0250, L500.4050, L500.4100, L501.9985, L100.0500 ####[facility] [address] [place], [address] Glucose [Mass/Vol] 121 mg/dL High 70-99 [facility] Comment on above: Order Comment: CBC Performed By: #### L 502.0250, L500.4050, L500.4100, L501.9985, L100.0500 ####[facility] [address] [place], [address] Potassium [Moles/Vol] 4.3 mmol/L Normal 3.3-5.1 [facility] Comment on above: Order Comment: CBC Performed By: #### L 502.0250, L500.4050, L500.4100, L501.9985, L100.0500 ####[facility] [address] [place], [address] Sodium [Moles/Vol] 136 mmol/L Normal 133-145 [facility] Comment on above: Order Comment: CBC Performed By: #### L 502.0250, L500.4050, L500.4100, L501.9985, L100.0500 ####[facility] [address] [place], [address] T PROT 7.3 g/dL Normal 5.9-8.4 [facility] Comment on above: Order Comment: CBC Performed By: #### L 502.0250, L500.4050, L500.4100, L501.9985, L100.0500 ####[facility] [address] [place], [address] Urea nitrogen [Mass/Vol] 20 mg/dL High 4-19 [facility] Comment on above: Order Comment: CBC Performed By: #### L 502.0250, L500.4050, L500.4100, L501.9985, L100.0500 ####[facility] [address] [place], [address] Creatinine Unsp time (U) [Ma ss/Vol]Ordered By: Mathieu Virgen on 11-28-2024 Creatinine (U) [Mass/Vol] 90.60 mg/dL 39-259 [facility] GFR/1.73 sq M.predicted ismael g non-blacks MDRD (S/P/Bld) [Vol rate/Area]Ordered By: Mathieu Virgen on 11-28-2024 Estimated GFR (MDRD) Non-Af Amer 76 >60 [facility] Comment on above: mL/min/1.73m2 CKD-EP I Creatinine Equation (2020) Glomerular filtration rate ( GFR) estimation/1.73 sq m using serum, plasma, or whole bOrdered By: Mathieu Virgen on 11-28-2024 GFR/1.73 sq M.predicted among non-blacks MDRD (S/P/Bld) [Vol rate/Area] 76 mL/min/{1.73_m2} >60 [facility] Comment on above: mL/min/1.73m2 CKD-EP I Creatinine Equation (2020) Hemoglobin A1con 11-28-2024 HbA1c (Bld) [Mass fraction] 7.0 % Normal <=5.6 [facility] Comment on above: Performed By: #### L 502.0250, L500.4050, L500.4100, L501.9985, L100.0500 ####[facility] [address] [place], [place], [id number] Hemoglobin A1c percentageOrd ered By: Mathieu Virgen on 11-28-2024 HbA1c (Bld) [Mass fraction] 7.0 % >5.7 [facility] LDL calc ser/plasOrdered By: Mathieu Virgen on 11-28-2024 Cholesterol in LDL [Mass/Vol] 52 mg/dL [facility] Comment on above: Hjzfotgmjy=217-891 m g/dL & Higher Ghak=291 mg/dL or greater LDL Cholesterol, Calculated 52 mg/dL [facility] Comment on above: Gdgzluxzuz=272-269 m g/dL & Higher Uqbw=333 mg/dL or greater Laboratory - Chemistry and C hemistry - challengeOrdered By: Mathieu Virgen on 11-28-2024 AST [Catalytic activity/Vol] 19 U/L <38 [facility] Lipid Profileon 11-28-2024 CHOL:HDL 3.06 Normal [facility] Comment on above: Performed By: #### L 502.0250, L500.4050, L500.4100, L501.9985, L100.0500 ####[facility] [address] [place], [address] Cholesterol [Mass/Vol] 110 mg/dL Normal <=200 [facility] Comment on above: Result Comment: Chol esterol level, Desirable <200 mg/dLBorderline high cholesterol 200-239 mg/dLHigh cholesterol >=240 mg/dLRecommendations of the NCEP Adult Treatment Panel for thefollowing risk-cutoff thresholds for the [place] [facility] Performed By: #### L 502.0250, L500.4050, L500.4100, L501.9985, L100.0500 ####[facility] [address] [place], [address] Cholesterol in HDL [Mass/Vol] 36 mg/dL Low [facility] Comment on above: Result Comment: [place] onal Cholesterol Education Program (NCEP) guidelines:<40 mg/dL: Low HDL-cholesterol (major risk factor for CHD)>= 60 mg/dL: High HDL-cholesterol (negative risk factor forCHD)HDL-cholesterol is affected by a number of factors, e.g.smoking, exercise, hormones, sex and age. Performed By: #### L 502.0250, L500.4050, L500.4100, L501.9985, L100.0500 ####[facility] [address] [place], [address] Cholesterol in LDL [Mass/Vol] 52 mg/dL Normal [facility] Comment on above: Result Comment: Bord kddndv=759-598 mg/dL Higher Dnzh=574 mg/dL or greater Performed By: #### L 502.0250, L500.4050, L500.4100, L501.9985, L100.0500 ####[facility] [address] [place], [address] Cholesterol in VLDL [Mass/Vol] 22 mg/dL Normal 5-40 [facility] Comment on above: Performed By: #### L 502.0250, L500.4050, L500.4100, L501.9985, L100.0500 ####[facility] [address] [place], [address] Triglyceride [Mass/Vol] 108 mg/dL Normal [facility] Comment on above: Result Comment: The drugs N-Acetylcysteine and Metamizole may falselydepress this assay.Normal range: <150 mg/dLBorderline High: 150-199 mg/dLHigh: 200-499 mg/dLVery High: >500 mg/dL Performed By: #### L 502.0250, L500.4050, L500.4100, L501.9985, L100.0500 ####[facility] [address] [place], [address] Microalb:Creat Ratio,Random URon 11-28-2024 MALB:CREAT 187.6 mg/g CRE Normal [facility] Comment on above: Performed By: #### L 502.0250, L500.4050, L500.4100, L501.9985, L100.0500 ####[facility] [address] [place], [address] Creatinine [Mass/Vol] 90.60 mg/dL Normal 39-259 [facility] Comment on above: Performed By: #### L 502.0250, L500.4050, L500.4100, L501.9985, L100.0500 ####[facility] [address] [place], [address] MICROALBUMIN,UR 17.0 mg/L Normal NO RANGE EST. [facility] Comment on above: Performed By: #### L 502.0250, L500.4050, L500.4100, L501.9985, L100.0500 ####[facility] [address] [place], [address] Microalbumin/creat ratio urO rdered By: Mathieu Virgen on 11-28-2024 Urine Microalbumin/Creatinine Ratio 187.6 mg/g CRE [facility] Potassium (Unsp spec) [Mass/ Vol]Ordered By: Mathieu Virgen on 11-28-2024 Potassium [Moles/Vol] 4.3 mmol/L 3.3-5.1 [facility] Potassium measurement (mass/ volume)Ordered By: Mathieu Virgen on 11-28-2024 Potassium (Unsp spec) [Mass/Vol] 4.3 mmol/L 3.3-5.1 [facility] Random urine creatinine nahoym urement (mass/volume)Ordered By: Mathieu Virgen on 11-28-2024 Creatinine Unsp time (U) [Mass/Vol] 90.60 mg/dL 39-259 [facility] Screening total cholesterol/ high density lipoprotein (HDL) cholesterol ratioOrdered By: Mathieu Virgen on 11-28-2024 Cholesterol.total/Cholest abdulkadir in HDL [Mass ratio] 3.06 {ratio} [facility] Serum creatinine measurement (mass/volume)Ordered By: Mathieu Virgen on 11-28-2024 Creatinine [Mass/Vol] 1.00 mg/dL 0.70-1.20 [facility] Serum globulin measurementOr dered By: Mathieu Virgen on 11-28-2024 Globulin (S) [Mass/Vol] 3.3 g/dL 2.2-4.2 [facility] Serum glucose measurement (m ass/volume)Ordered By: Mathieu Virgen on 11-28-2024 Glucose [Mass/Vol] 121 mg/dL High 70-99 [facility] Serum or plasma alanine cottrell otransferase (ALT) measurementOrdered By: Mathieu Virgen on 11-28-2024 ALT [Catalytic activity/Vol] 15 U/L <47 [facility] Serum or plasma albumin nahomy urement (mass/volume)Ordered By: Mathieu Virgen on 11-28-2024 Albumin [Mass/Vol] 4.0 g/dL 3.4-4.8 [facility] Serum or plasma albumin/glob ulin mass ratioOrdered By: Mathieu Virgen on 11-28-2024 Albumin/Globulin [Mass ratio] 1.2 {ratio} 0.9-2.4 [facility] Serum or plasma alkaline ahsan sphatase measurementOrdered By: Mathieu Virgen on 11-28-2024 ALP [Catalytic activity/Vol] 110 U/L 40-129 [facility] Serum or plasma calcium nahomy urement (mass/volume)Ordered By: Mathieu Virgen on 11-28-2024 Calcium [Mass/Vol] 9.3 mg/dL 7.6-11.0 [facility] Serum or plasma cholesterol in HDL measurement (mass/volume)Ordered By: Mathieu Virgen on 11-28-2024 Cholesterol in HDL [Mass/Vol] 36 mg/dL Low >40 [facility] Comment on above: National Cholesterol Education Program (NCEP) guidelines:<40 mg/dL: Low HDL-cholesterol (major risk factor for CHD)>= 60 mg/dL: High HDL-cholesterol (negative risk factor for CHD)HDL-cholesterol is affected by a number of factors, e.g. smoking, exercise, hormones, sex and age. Serum or plasma cholesterol measurement (mass/volume)Ordered By: Mathieu Virgen on 11-28-2024 Cholesterol [Mass/Vol] 110 mg/dL <201 [facility] Comment on above: Cholesterol level, D esirable <200 mg/dLBorderline high cholesterol 200-239 mg/dLHigh cholesterol >=240 mg/dLRecommendations of the NCEP Adult Treatment Panel for the following risk-cutoff thresholds for the [place] population. Serum or plasma urea nitroge n measurement (mass/volume)Ordered By: Mathieu Virgen on 11-28-2024 Urea nitrogen [Mass/Vol] 20 mg/dL High 4-19 [facility] Sodium levelOrdered By: Keny Viregn on 11-28-2024 Sodium [Moles/Vol] 136 mmol/L 133-145 [facility] Total proteinOrdered By: Louis Virgen on 11-28-2024 Protein [Mass/Vol] 7.3 g/dL 5.9-8.4 [facility] Triglycerides measurementOrd ered By: Mathieu Virgen on 11-28-2024 Triglyceride [Mass/Vol] 108 mg/dL <199 [facility] Comment on above: The drugs N-Acetylcy steine and Metamizole may falsely depress this assay. Normal range: <150 mg/dLBorderline High: 150-199 mg/dLHigh: 200-499 mg/dLVery High: >500 mg/dL Urine albumin measurement [facility] detection limit of 20 mg/L or less (mass/volume)Ordered By: Mathieu Virgen on 11-28-2024 Albumin DL <= 20 mg/L (U) [Mass/Vol] 17.0 mg/L NO RANGE EST. [facility] Anion gap in Serum or Plasma Ordered By: Mathieu Virgen on 11-27-2024 Anion gap [Moles/Vol] 17 mmol/L High 5-15 [facility] BUN/creatinine ratioOrdered By: Mathieu Virgen on 11-27-2024 Urea nitrogen/Creatinine [Mass ratio] 18.3 mg/mg - [facility] Basic Metabolic Profile (BMP )on 11-27-2024 BUN/CRE 18.3 RATIO Normal - [facility] Comment on above: Performed By: #### L 501.5200, L500.2500 ####[facility] [address] [place], [address] Calcium [Mass/Vol] 9.3 mg/dL Normal 7.6-11.0 [facility] Comment on above: Performed By: #### L 501.5200, L500.2500 ####[facility] [address] [place], [address] Chloride [Moles/Vol] 100 mmol/L Normal 98-108 [facility] Comment on above: Performed By: #### L 501.5200, L500.2500 ####[facility] [address] [place], [address] CO2 [Moles/Vol] 18.9 mmol/L Low 21.0-32.0 [facility] Comment on above: Performed By: #### L 501.5200, L500.2500 ####[facility] [address] [place], [address] Creatinine [Mass/Vol] 1.19 mg/dL Normal 0.70-1.20 [facility] Comment on above: Performed By: #### L 501.5200, L500.2500 ####[facility] [address] [place], [address] GAP 17 High 5-15 [facility] Comment on above: Performed By: #### L 501.5200, L500.2500 ####[facility] [address] [place], [address] GFR/1.73 sq M.predicted among non-blacks MDRD (S/P/Bld) [Vol rate/Area] 62 mL/min/{1.73_m2} Normal >60 [facility] Comment on above: Result Comment: mL/m in/1.73m2 CKD-EPI Creatinine Equation (2020) Performed By: #### L 501.5200, L500.2500 ####[facility] [address] [place], [address] Glucose [Mass/Vol] 142 mg/dL High 70-99 [facility] Comment on above: Performed By: #### L 501.5200, L500.2500 ####[facility] [address] [place], [address] Potassium [Moles/Vol] 5.0 mmol/L Normal 3.3-5.1 [facility] Comment on above: Result Comment: Hemo lysis present, Results??could be affected.?? Performed By: #### L 501.5200, L500.2500 ####[facility] [address] [place], [address] Sodium [Moles/Vol] 136 mmol/L Normal 133-145 [facility] Comment on above: Performed By: #### L 501.5200, L500.2500 ####[facility] [address] [place], [address] Urea nitrogen [Mass/Vol] 22 mg/dL High 4-19 [facility] Comment on above: Performed By: #### L 501.5200, L500.2500 ####[facility] [address] [place], [address] BUN Normal 4-19 [facility] Comment on above: Result Comment: NEED REORDERED DUE TO MEDITECH ISSUE. Performed By: #### L 100.0500, L501.5200, L500.2500 ####[facility] [address] [place], [address] BUN/CRE Normal 10-20 [facility] Comment on above: Result Comment: NEED REORDERED DUE TO MEDITECH ISSUE. Performed By: #### L 100.0500, L501.5200, L500.2500 ####[facility] [address] [place], [address] Calcium Normal 7.6-11.0 [facility] Comment on above: Result Comment: NEED REORDERED DUE TO MEDITECH ISSUE. Performed By: #### L 100.0500, L501.5200, L500.2500 ####[facility] [address] [place], [address] CL Normal 98-108 [facility] Comment on above: Result Comment: NEED REORDERED DUE TO MEDITECH ISSUE. Performed By: #### L 100.0500, L501.5200, L500.2500 ####[facility] [address] [place], [address] CO2 Normal 21.0-32.0 [facility] Comment on above: Result Comment: NEED REORDERED DUE TO MEDITECH ISSUE. Performed By: #### L 100.0500, L501.5200, L500.2500 ####[facility] [address] [place], [address] CREAT,SERUM Normal 0.70-1.20 [facility] Comment on above: Result Comment: NEED REORDERED DUE TO MEDITECH ISSUE. Performed By: #### L 100.0500, L501.5200, L500.2500 ####[facility] [address] [place], [address] eGFR Normal >60 [facility] Comment on above: Result Comment: NEED REORDERED DUE TO MEDITECH ISSUE. Performed By: #### L 100.0500, L501.5200, L500.2500 ####[facility] [address] [place], [address] GAP Normal 5-15 [facility] Comment on above: Result Comment: NEED REORDERED DUE TO MEDITECH ISSUE. Performed By: #### L 100.0500, L501.5200, L500.2500 ####[facility] [address] [place], [address] GLU Normal 70-99 [facility] Comment on above: Result Comment: NEED REORDERED DUE TO MEDITECH ISSUE. Performed By: #### L 100.0500, L501.5200, L500.2500 ####[facility] [address] [place], [address] Potassium Normal 3.3-5.1 [facility] Comment on above: Result Comment: NEED REORDERED DUE TO MEDITECH ISSUE. Performed By: #### L 100.0500, L501.5200, L500.2500 ####[facility] [address] [place], [address] Basic Metabolic Profile (BMP) Normal 133-145 [facility] Comment on above: Result Comment: NEED REORDERED DUE TO MEDITECH ISSUE. Performed By: #### L 100.0500, L501.5200, L500.2500 ####[facility] [address] [place], [address] CBC-Complete Blood Cnt No Di ffon 11-27-2024 Erythrocyte distribution width (RBC) [Ratio] 17.0 % High 11.6-14.6 [facility] Comment on above: Performed By: #### L 100.0500, L501.5200, L500.2500 ####[facility] [address] [place], [address] Hematocrit (Bld) [Volume fraction] 43.7 % Normal 40-54 [facility] Comment on above: Performed By: #### L 100.0500, L501.5200, L500.2500 ####[facility] [address] [place], [address] Hemoglobin (Bld) [Mass/Vol] 14.3 g/dL Normal 13.0-16.5 [facility] Comment on above: Performed By: #### L 100.0500, L501.5200, L500.2500 ####[facility] [address] [place], [address] MCH (RBC) [Entitic mass] 26.3 pg Low 27.0-32.0 [facility] Comment on above: Performed By: #### L 100.0500, L501.5200, L500.2500 ####[facility] [address] [place], [address] MCHC (RBC) [Mass/Vol] 32.7 g/dL Normal 32-36 [facility] Comment on above: Performed By: #### L 100.0500, L501.5200, L500.2500 ####[facility] [address] [place], [address] MCV (RBC) [Entitic vol] 80.5 fL Normal 80-94 [facility] Comment on above: Performed By: #### L 100.0500, L501.5200, L500.2500 ####[facility] [address] [place], [address] Platelet mean volume (Bld) [Entitic vol] 10.6 fL Normal 6.2-12.0 [facility] Comment on above: Performed By: #### L 100.0500, L501.5200, L500.2500 ####[facility] [address] [place], [address] Platelets (Bld) [#/Vol] 272 10*3/uL Normal 150-450 [facility] Comment on above: Performed By: #### L 100.0500, L501.5200, L500.2500 ####[facility] [address] [place], [address] RBC (Bld) [#/Vol] 5.43 10*6/uL Normal 4.6-6.2 [facility] Comment on above: Performed By: #### L 100.0500, L501.5200, L500.2500 ####[facility] [address] [place], [address] RDW SD 49.5 fl High 35.1-43.9 [facility] Comment on above: Performed By: #### L 100.0500, L501.5200, L500.2500 ####[facility] [address] [place], [address] WBC (Bld) [#/Vol] 11.5 10*3/uL High 4.4-11.0 [facility] Comment on above: Performed By: #### L 100.0500, L501.5200, L500.2500 ####[facility] [address] [place], [address] CNPSharlene 11-27-2024 CAESARN Telephone (FAMPWS) ----- FAISAL [id number]) 1945 M Date Time Provider Department 11/27/24 [facility], we recorded [...] with microalbuminuria (HCC) [E11.29, R80.9] Other Visit Diagnoses:Nonobstructive atherosclerosis of coronary artery [I25.10] Pure hypercholesterolemia [E78.00] Order(s):ADVANCE CARE PLAN DISCUSSION [[id number]] Order #: [id number]: 1 LIPID PANEL BASIC [SQLIPB] Order #: [id number] FUTURE ALBUMIN/CREATININE RATIO, URINE [SQUACR] Order #: [id number] FUTURE HEMOGLOBIN A1C [SGHKL2X] Order #: [id number] FUTURE COMPLETE BLOOD COUNT [SQCBC] Order #: [id number] FUTURE COMPREHENSIVE METABOLIC PANEL [SQCMP] Order #: [id number] FUTURE Prescriptions as of 11/27/2024 - finasteride [...] - Blood-Glucose Meter,Continuous (FREESTYLE MARIELLE 3 READER) [facility] Use to check blood sugar at least [...] Getting through [facility] - simvastatin (ZOCOR) 40 mg tablet Take 1 tablet by mouth daily at bedtime. - flecainide (TAMBOCOR) 150 mg tablet Take 1 tablet by mouth every 12 hours. Prescribed by outside embroiderer hand - insulin glargine (BASAGLAR KWIKPEN U-100 INSULIN) [...] hypertension [I10] (more content not included)... Normal [facility] Carbon dioxide, total [Moles /volume] in Central venous bloodOrdered By: Mathieu Virgen on 11-27-2024 CO2 [Moles/Vol] 18.9 mmol/L Low 21.0-32.0 [facility] Chloride assayOrdered By: Shannon Virgen on 11-27-2024 Chloride [Moles/Vol] 100 mmol/L 98-108 [facility] Erythrocyte distribution wid th ratioOrdered By: Mathieu Virgen on 11-27-2024 Erythrocyte distribution width (RBC) [Ratio] 17.0 % High 11.6-14.6 [facility] Erythrocyte distribution wid th standard deviationOrdered By: Mathieu Virgen on 11-27-2024 Erythrocyte distribution width (RBC) [Entitic vol] 49.5 fL High 35.1-43.9 [facility] Erythrocyte distribution width (RBC) [Ratio] 49.5 fl High 35.1-43.9 [facility] GFR/1.73 sq M.predicted ismael g non-blacks MDRD (S/P/Bld) [Vol rate/Area]Ordered By: Mathieu Virgen on 11-27-2024 Estimated GFR (MDRD) Non-Af Amer 62 >60 [facility] Comment on above: mL/min/1.73m2 CKD-EP I Creatinine Equation (2020) Glomerular filtration rate ( GFR) estimation/1.73 sq m using serum, plasma, or whole bOrdered By: Mathieu Virgen on 11-27-2024 GFR/1.73 sq M.predicted among non-blacks MDRD (S/P/Bld) [Vol rate/Area] 62 mL/min/{1.73_m2} >60 [facility] Comment on above: mL/min/1.73m2 CKD-EP I Creatinine Equation (2020) Hematocrit Auto (Bld) [Volum e fraction]Ordered By: Mathieu Virgen on 11-27-2024 Hematocrit (Bld) [Volume fraction] 43.7 % 40-54 [facility] Hemoglobin measurementOrdere d By: Mathieu Virgen on 11-27-2024 Hemoglobin (Bld) [Mass/Vol] 14.3 g/dL 13.0-16.5 [facility] MCV (mean corpuscular volume ) determinationOrdered By: Mathieu Virgen on 11-27-2024 MCV (RBC) [Entitic vol] 80.5 fL 80-94 [facility] Magnesiumon 11-27-2024 Magnesium [Mass/Vol] 2.3 mg/dL High 1.5-2.2 [facility] Comment on above: Performed By: #### L 501.5200, L500.2500 ####[facility] [address] [place], [address] Magnesium [Mass/Vol] 2.3 mg/dL High 1.5-2.2 [facility] Comment on above: Order Comment: NEED REORDERED DUE TO MEDITECH ISSUE. Result Comment: NEED REORDERED DUE TO MEDITECH ISSUE. Performed By: #### L 100.0500, L501.5200, L500.2500 ####[facility] [address] [place], [address] Magnesium (Unsp spec) [Mass/ Vol]Ordered By: Mathieu Virgen on 11-27-2024 Magnesium [Mass/Vol] 2.3 mg/dL High 1.5-2.2 [facility] Magnesium measurement (mass/ volume)Ordered By: Mathieu Virgen on 11-27-2024 Magnesium (Unsp spec) [Mass/Vol] 2.3 mg/dL High 1.5-2.2 [facility] Mean corpuscular hemoglobin (MCH) determinationOrdered By: Mathieu Virgen on 11-27-2024 MCH (RBC) [Entitic mass] 26.3 pg Low 27.0-32.0 [facility] Mean corpuscular hemoglobin concentration (MCHC) determinationOrdered By: Mathieu Virgen on 11-27-2024 MCHC (RBC) [Mass/Vol] 32.7 g/dL 32-36 [facility] Mean platelet volume determi nationOrdered By: Mathieu Virgen on 11-27-2024 Platelet mean volume (Bld) [Entitic vol] 10.6 fL 6.2-12.0 [facility] Platelet countOrdered By: Shannon Virgen on 11-27-2024 Platelets (Bld) [#/Vol] 272 10*3/uL 150-450 [facility] Potassium (Unsp spec) [Mass/ Vol]Ordered By: Mathieu Virgen on 11-27-2024 Potassium [Moles/Vol] 5.0 mmol/L 3.3-5.1 [facility] Comment on above: Hemolysis present, R esults could be affected. Potassium measurement (mass/ volume)Ordered By: Mathieu Virgen on 11-27-2024 Potassium (Unsp spec) [Mass/Vol] 5.0 mmol/L 3.3-5.1 [facility] Comment on above: Hemolysis present, R esults could be affected. RBC Auto (Bld) [#/Vol]Ordere d By: Mathieu Virgne on 11-27-2024 RBC (Bld) [#/Vol] 5.43 10*6/uL 4.6-6.2 [facility] Serum creatinine measurement (mass/volume)Ordered By: Mathieu Virgen on 11-27-2024 Creatinine [Mass/Vol] 1.19 mg/dL 0.70-1.20 [facility] Serum glucose measurement (m ass/volume)Ordered By: Mathieu Virgen on 11-27-2024 Glucose [Mass/Vol] 142 mg/dL High 70-99 [facility] Serum or plasma calcium nahomy urement (mass/volume)Ordered By: Mathieu Virgen on 11-27-2024 Calcium [Mass/Vol] 9.3 mg/dL 7.6-11.0 [facility] Serum or plasma urea nitroge n measurement (mass/volume)Ordered By: Mathieu Virgen on 11-27-2024 Urea nitrogen [Mass/Vol] 22 mg/dL High 4-19 [facility] Sodium levelOrdered By: Keny kisha Marilynn on 11-27-2024 Sodium [Moles/Vol] 136 mmol/L 133-145 [facility] White blood cell (WBC) count Ordered By: Mathieu Virgen on 11-27-2024 WBC (Bld) [#/Vol] 11.5 10*3/uL High 4.4-11.0 [facility] CNPNon 11-26-2024 CNPN Telephone (PEPE) ----- FAISAL ALARCON ([id number]) 1945 Date Time Provider Department 11/26/24 MATHIEU VIRGEN [...] ok rx needs to sent to yanira rodríguezoter daughter needs called with information Mathieu Virgen MD 11/26/2024 5:08 PM Signed I am assuming he is taking it once a day. Rx sent Jaylene Henley LPN 11/26/2024 5:18 PM Signed Left detailed message on personalized voicemail. Allergies As of Date: 11/26/2024 Noted Allergy [...] afternoon. Ordered by cardiology - Blood-Glucose Sensor ([employer] G7 SENSOR) sayra Apply new sensor every [...] - Blood-Glucose Meter,Continuous (FREESTYLE MARIELLE 3 READER) [facility] Use to check blood sugar at least [...] mouth every 12 hours. Prescribed by outside embroiderer hand - insulin glargine (BASAGLAR KWIKPEN U-100 INSULIN) [...] 06/09/2011 0 (more content not included)... Normal [facility] ----- FAISAL ALARCON ([id number]) 1945 M Date Time Provider Department 11/24/24 MATHIEU VIRGEN [facility] During your visit today, we recorded the following information about you: Anaikate Nisha 11/24/2024 9:35 AM Signed Patient's daughter calling [...] afternoon. Ordered by cardiology - Blood-Glucose Sensor ([employer] G7 SENSOR) sayra Apply new sensor every [...] - Blood-Glucose Meter,Continuous (FREESTYLE MARIELLE 3 READER) [facility] Use to check blood sugar at least [...] mouth every 12 hours. Prescribed by outside embroiderer hand - insulin glargine (BASAGLAR KWIKPEN U-100 INSULIN) [...] breath) [R06.02] (more content not included)... Normal [facility] ----- FAISAL ALARCON ([id number]) 1945 M Date Time Provider Department 11/12/24 MATHIEU VIRGEN [facility] During your visit today, we recorded [...] - Blood-Glucose Meter,Continuous (FREESTYLE MARIELLE 3 READER) [facility] Use to check blood sugar at least four (4) times daily. Uses insulin - Blood-Glucose Sensor (FREESTYLE MARIELLE 3 PLUS SENSOR) sayra Apply new sensor every fifteen (15 (more content not included)... Normal [facility] Bedside Glucoseon 11-03-2024 [facility] GLU 132 mg/dL High 74-106 [facility] Comment on above: Result Comment: URSULA CHAMBERS OF PATIENT CARE PER NURSING PROTOCOL Performed By: #### L 501.080 ####[facility] [address] [place], [address] FINGERSTICK GLU 108 mg/dL High 74-106 [facility] Comment on above: Result Comment: URSULA GEMENT OF PATIENT CARE PER NURSING PROTOCOL Performed By: #### L 501.080 ####[facility] [address] [place], [place], [address] FINGERSTICK GLU 55 mg/dL Low 74-106 [facility] Comment on above: Result Comment: URSULA GEMENT OF PATIENT CARE PER NURSING PROTOCOL Performed By: #### L 501.080 ####[facility] [address] [place], [place], [address] Emergency Department Summary on 11-03-2024 Emergency Department Summary Normal [facility] at [facility] hospital deOrdered By: Qasim Senior on 11-03-2024 Bedside Glucose (Misc Panel) 132 mg/dL High 74-106 [facility] Comment on above: MANAGEMENT OF PATIEN T CARE PER NURSING PROTOCOL Glucose [Mass/Vol] 132 mg/dL High 74-106 [facility] Comment on above: MANAGEMENT OF PATIEN T CARE PER NURSING PROTOCOL [facility]OV[facility] 10-31-2024 [facility] ----- FAISAL ALARCON ([id number]) 1945 M Date Time Provider Department 10/31/24 3:00 PM [facility] During your visit today, we recorded the following information about you: Pulse Respiration Blood pressure Weight 78/minute 18/minute 114/68 124.3 kg Sukh Hall APRN.CYBER SECURITY SYSTEMS ENGINEER 10/31/2024 3:16 PM Signed Chief Complaint Patient presents with: F/U 3 Month HPI Faisal Eugenie Alarcon is a 79 year old male [...] day. Blood-Glucose Meter,Continuous (FREESTYLE MARIELLE 3 READER) [facility] Use to check blood sugar at least [...] 1 safia (more content not included)... Normal [facility] CNPNon 10-31-2024 CNPN Telephone (FAMWS) ----- ESHAFAISAL Eugenie ([id number]) 1945 M Date Time Provider Department 10/31/24 MATHIEU VIRGEN [facility] During your visit today, we recorded the following information about you: Jackelin Tinajero RN 10/31/2024 2:42 PM Signed Call placed to patient and spoke to daughter (Nisha). Nisha reports that patient has on-going dizziness/light-headednes s and has been to the ER multiple [...] waiting for a new C-pap machine from [facility]. (Nihsa is calling them to ask about the [...] - Blood-Glucose Meter,Continuous (FREESTYLE MARIELLE 3 READER) [facility] Use to check blood sugar at least [...] Getting through [facility] - dilTIAZem CD (CARDIZEM CD, CARTIA XT) 120 mg 24 hr capsule Take 1 capsule by mouth once daily. - simvastatin (ZOCOR) 40 mg tablet Take 1 tablet by mouth daily at bedtime. - flecainide (TAMBOCOR) 150 mg tablet Take 1 tablet by mouth every 12 hours. Prescribed by outside embroiderer hand - insulin glargine (BASAGLAR KWIKPEN U-100 INSULIN) [...] microalbuminuria *04/18 (more content not included)... Normal [facility] Ema 10-16-[address] [facility] Telephone (FAMPWS) ----- FAISAL ALARCON ([id number]) 1945 M Date Time Provider Department 10/16/24 MATHIEU VIRGEN During your visit today, we recorded the following information about you: Osvaldo Regalado RN 10/16/2024 10:34 AM Signed Daughter Farida reports patient had 3 Dexcom G 7 sensors that malfunctioned. They notified the company, but it takes 5-7 days to receive new one. Asking if pcp has samples of these sensors or knows how they can get one. Please phone Farida with reply: [phone] Mathieu Virgen MD 10/16/2024 10:35 AM Signed Do we have anything like that available? Might need to buy one if not Lulu Walls MA 10/16/2024 11:55 AM Signed We do not have samples. Spoke with daughter Farida and informed her of this. She is requesting a Rx for the Dexcom sensors (G7) to the [facility] in [place] while waiting for the company to ship [...] - Blood-Glucose Meter,Continuous (FREESTYLE MARIELLE 3 READER) [facility] Use to check blood sugar at least [...] a day before meals. Getting through [facility] - dilTIAZem CD (CARDIZEM CD, CARTIA XT) 120 mg 24 hr capsule Take 1 capsule by mouth once daily. - simvastatin (ZOCOR) 40 mg tablet Take 1 tablet by mouth daily at bedtime. - flecainide (TAMBOCOR) 150 mg tablet Take 1 tablet by mouth every 12 hours. Prescribed by outside embroiderer hand - insulin glargine (BASAGLAR KWIKPEN U-100 INSULIN) [...] 06/06/2023 Tu (more content not included)... Normal [facility] Basic Metabolic Profile (BMP )on 10-07-2024 BUN/CRE 26.7 RATIO High 07-06 [facility] Comment on above: Performed By: #### L 500.2500 ####[facility] [address] [place], [place], [phone] CA,Total 9.6 mg/dL Normal 8.5-10.1 [facility] Comment on above: Performed By: #### L 500.2500 ####[facility] [address] [place], [address] Chloride [Moles/Vol] 104 mmol/L Normal 98-107 [facility] Comment on above: Performed By: #### L 500.2500 ####[facility] [address] [place], [address] CO2 [Moles/Vol] 26.0 mmol/L Normal 21.0-32.0 [facility] Comment on above: Performed By: #### L 500.2500 ####[facility] [address] [place], [address] Creatinine [Mass/Vol] 1.20 mg/dL Normal 0.70-1.30 [facility] Comment on above: Result Comment: The validity of the calculated GFR GFRAA in patients over70 years has not been determined. Clinical correlation isessential. Performed By: #### L 500.2500 ####[facility] [address] [place], [address] EST GFR - AA 75 mL/min Normal >60 [facility] Comment on above: Result Comment: Afri can Croatian GFR Calc Performed By: #### L 500.2500 ####[facility] [address] [place], [address] GAP 6 Normal 5-15 [facility] Comment on above: Performed By: #### L 500.2500 ####[facility] [address] [place], [address] GFR/1.73 sq M.predicted among non-blacks MDRD (S/P/Bld) [Vol rate/Area] 62 mL/min/{1.73_m2} Normal >60 [facility] Comment on above: Result Comment: Non- GFR Calc Performed By: #### L 500.2500 ####[facility] [address] [place], [address] Glucose [Mass/Vol] 142 mg/dL High 74-106 [facility] Comment on above: Result Comment: Fast ing Glucose result greater than or equal to 126 mg/dLsuggests DIABETES MELLITUS per A.D.A. criteria. Performed By: #### L 500.2500 ####[facility] [address] [place], [address] Potassium [Moles/Vol] 4.3 mmol/L Normal 3.5-5.1 [facility] Comment on above: Performed By: #### L 500.2500 ####[facility] [address] [place], [address] Sodium [Moles/Vol] 136 mmol/L Normal 136-145 [facility] Comment on above: Performed By: #### L 500.2500 ####[facility] [address] [place], [address] Urea nitrogen [Mass/Vol] 32 mg/dL High 7-18 [facility] Comment on above: Performed By: #### L 500.2500 ####[facility] [address] [place], [place], [id number] Blood urea nitrogen (BUN)/cr eatinine ratioOrdered By: Tierra Gilbert on 10-07-2024 Urea nitrogen/Creatinine [Mass ratio] 26.7 mg/mg High 10-20 [facility] Carbon dioxide measurementOr dered By: Tierra Gilbert on 10-07-2024 CO2 [Moles/Vol] 26.0 mmol/L 21.0-32.0 [facility] Chloride measurementOrdered By: Tierra Gilbert on 10-07-2024 Chloride [Moles/Vol] 104 mmol/L 98-107 [facility] Estimated glomerular filtrat ion rate (GFR) AmericanOrdered By: Tierra Gilbert on 10-07-2024 Estimated GFR (MDRD) Amer 75 mL/min >60 [facility] Comment on above: GFR Calc Glomerular filtration rate ( GFR) estimationOrdered By: Tierra Gilbert on 10-07-2024 Estimated GFR (MDRD) Non-Af Amer 62 mL/min >60 [facility] Comment on above: Non- GFR Calc GFR/1.73 sq M.predicted among non-blacks MDRD (S/P/Bld) [Vol rate/Area] 62 mL/min/{1.73_m2} >60 [facility] Comment on above: Non- GFR Calc Glucose measurementOrdered B y: Tierra Gilbert on 10-07-2024 Glucose [Mass/Vol] 142 mg/dL High 74-106 [facility] Comment on above: Fasting Glucose resu lt greater than or equal to 126 mg/dL suggests DIABETES MELLITUS per A.D.A. criteria. Potassium measurementOrdered By: Tierra Gilbert on 10-07-2024 Potassium [Moles/Vol] 4.3 mmol/L 3.5-5.1 [facility] Serum anion gap measurementO rdered By: Tierra Gilbert on 10-07-2024 Anion gap [Moles/Vol] 6 mmol/L 5-15 [facility] Serum or plasma calcium nahomy urement (mass/volume)Ordered By: Tierra Gilbert on 10-07-2024 Calcium [Mass/Vol] 9.6 mg/dL 8.5-10.1 [facility] Serum or plasma creatinine m easurement (mass/volume)Ordered By: Tierra Gilbert on 10-07-2024 Creatinine [Mass/Vol] 1.20 mg/dL 0.70-1.30 [facility] Comment on above: The validity of the calculated GFR & GFRAA in patients over 70 years has not been determined. Clinical correlation is essential. Serum or plasma urea nitroge n measurement (mass/volume)Ordered By: Tierra Gilbert on 10-07-2024 Urea nitrogen [Mass/Vol] 32 mg/dL High 7-18 [facility] Sodium levelOrdered By: Misbah Gilbert on 10-07-2024 Sodium [Moles/Vol] 136 mmol/L 136-145 [facility] CNOVon 09-23-2024 CNOV Office Visit (FAMPWS ) ----- FAISAL ALARCON ([id number]) 1945 M Date Time Provider Department 09/23/24 2:40 PM DENISHA SHEPARD FAMPWS During your visit today, we recorded the following information about you: Pulse Respiration Blood pressure Weight 79/minute 16/minute 118/68 127.9 kg Denisha Shepard APRN.CNP 09/23/2024 6:18 PM Signed This is a 79 year old male who presents today with: Patient presents with: ER F/U: [facility] ER 09/20/24 dx:CP HISTORY OF PRESENT ILLNESS: Faisal Alarcon is a 79 year old male. Patient presents with: ER F/U: [facility] ER 09/20/24 dx:CP Patient presents today for emergency room follow-up. He went to the emergency room on 09/20/2024 with complaints of chest discomfort. He had been given nitroglycerin by EMS that did improve his pain. He had negative cardiac enzymes and stable lab work. There was no STEMI. The emergency room did consult patient's embroiderer hand, and it was recommended to start patient on Imdur. He was to follow-up with cardiology. Since he was in the emergency room they have been noticing some more lightheadedness/dizziness . Patient reports his mostly associated with position [...] day. Blood-Glucose Meter,Continuous (FREESTYLE MARIELLE 3 READER) [facility] Use to check blood sugar at least [...] mouth every 12 hours. Prescribed by outside embroiderer hand insulin glargine (BASAGLAR KWIKPEN U-100 INSULIN) 100 [...] Insulin Syri (more content not included)... Normal [facility] Cardiology Visit Reporton Cardiology Visit Report Normal [facility] CBC W/Diff, Automatedon PATH REV Reviewed Normal [facility] Comment on above: Result Comment: Leuk ocytosis.Clinical correlation necessary.Callum Arteaga M.D. 09/22/24 AMENDED REPORT 09/22/24 1321 PATH REV previously reported as: January Performed By: #### L 100.0100, L500.2500, L501.5425 ####[facility] [address] [place], [address] [facility] 09-22-[address] [facility] Telephone (COLIN) ----- FAISAL ALARCON ([id number]) 1945 M Date Time Provider Department 09/22/24 DENISHA SHEPARD During your visit today, we recorded the following information about you: Liyah Monroy, RN 09/22/2024 1:03 PM Signed Pts daughter called in and reports her father was in [facility] ER 09/20/24. She reports Pt was having chest pain and that is why he went to the ER. Pts daughter states they didn't find anything wrong with him, everything was the same as before. Pt scheduled with Denisha Shepard HOT PACKER 09/23/24 at 240 pm. She reports he father has been feeling lightheaded and dizzy, and she thinks it's because on 09/13/24 his [employer] Mechanic Dr Ponce double his dose of Lasix. [...] a few weeks from now. Denisha Shepard APRN.CAESAR 09/23/2024 5:14 PM Signed See office notes. Has appt w/ cardiology today. Denisha Shepard APRN.CAESAR Allergies As of Date: 09/22/2024 Noted Allergy Reaction AMOXICILLIN 05/11/2005 Comments: generalized erythema Date Reviewed: 07/29/2024 Reviewed by: Julianna Hood APRN.CYBER SECURITY SYSTEMS ENGINEER - Fully Assessed Reason for Visit: Patient [...] - Blood-Glucose Meter,Continuous (FREESTYLE MARIELLE 3 READER) [facility] Use to check blood sugar at least [...] a day before meals. Getting through [facility] - dilTIAZem CD (CARDIZEM CD, CARTIA XT) [...] mouth every 12 hours. Prescribed by outside embroiderer hand - insulin glargine (BASAGLAR KWIKPEN U-100 INSULIN) [...] condition wi* (more content not included)... Normal [facility] 12 Lead EKGon 09-20-2024 12 Lead EKG Normal [facility] 12 Lead EKG Normal [facility] Absolute neutrophil countOrd ered By: Reji Smith on 09-20-2024 Neutrophils (Bld) [#/Vol] 7.5 10*3/uL 2.0-7.7 [facility] Basic Metabolic Profile (BMP )on 09-20-2024 BUN/CRE 21.4 RATIO High 10-20 [facility] Comment on above: Order Comment: 1Y Performed By: #### L 100.0100, L500.2500, L501.5425 ####[facility] [address] [place], [address] CA,Total 9.5 mg/dL Normal 8.5-10.1 [facility] Comment on above: Order Comment: 1Y Performed By: #### L 100.0100, L500.2500, L501.5425 ####[facility] [address] [place], [address] Chloride [Moles/Vol] 102 mmol/L Normal 98-107 [facility] Comment on above: Order Comment: 1Y Performed By: #### L 100.0100, L500.2500, L501.5425 ####[facility] [address] [place], [address] CO2 [Moles/Vol] 27.0 mmol/L Normal 21.0-32.0 [facility] Comment on above: Order Comment: 1Y Performed By: #### L 100.0100, L500.2500, L501.5425 ####[facility] [address] [place], [address] Creatinine [Mass/Vol] 1.26 mg/dL Normal 0.70-1.30 [facility] Comment on above: Order Comment: 1Y Result Comment: The validity of the calculated GFR GFRAA in patients over70 years has not been determined. Clinical correlation isessential. Performed By: #### L 100.0100, L500.2500, L501.5425 ####[facility] [address] [place], [address] ECRCL 66.12 ml/min Normal [facility] Comment on above: Order Comment: 1Y Performed By: #### L 100.0100, L500.2500, L501.5425 ####[facility] [address] [place], [address] EST GFR - AA 71 mL/min Normal >60 [facility] Comment on above: Order Comment: 1Y Result Comment: Afri can Croatian GFR Calc Performed By: #### L 100.0100, L500.2500, L501.5425 ####[facility] [address] [place], [address] GAP 8 Normal 5-15 [facility] Comment on above: Order Comment: 1Y Performed By: #### L 100.0100, L500.2500, L501.5425 ####[facility] [address] [place], [address] GFR/1.73 sq M.predicted among non-blacks MDRD (S/P/Bld) [Vol rate/Area] 59 mL/min/{1.73_m2} Low >60 [facility] Comment on above: Order Comment: 1Y Result Comment: Non- GFR Calc Performed By: #### L 100.0100, L500.2500, L501.5425 ####[facility] [address] [place], [address] Glucose [Mass/Vol] 147 mg/dL High 74-106 [facility] Comment on above: Order Comment: 1Y Result Comment: Fast ing Glucose result greater than or equal to 126 mg/dLsuggests DIABETES MELLITUS per A.D.A. criteria. Performed By: #### L 100.0100, L500.2500, L501.5425 ####[facility] [address] [place], [address] Potassium [Moles/Vol] 3.8 mmol/L Normal 3.5-5.1 [facility] Comment on above: Order Comment: 1Y Performed By: #### L 100.0100, L500.2500, L501.5425 ####[facility] [address] [place], [address] Sodium [Moles/Vol] 137 mmol/L Normal 136-145 [facility] Comment on above: Order Comment: 1Y Performed By: #### L 100.0100, L500.2500, L501.5425 ####[facility] [address] [place], [address] Urea nitrogen [Mass/Vol] 27 mg/dL High 7-18 [facility] Comment on above: Order Comment: 1Y Performed By: #### L 100.0100, L500.2500, L501.5425 ####[facility] [address] [place], [address] Basophil percentageOrdered B y: Reji Smith on 09-20-2024 Basophils/100 WBC (Bld) 0.4 % 0-1 [facility] Blood urea nitrogen (BUN)/cr eatinine ratioOrdered By: Reji Smith on 09-20-2024 Urea nitrogen/Creatinine [Mass ratio] 21.4 mg/mg High 10-20 [facility] Carbon dioxide measurementOr dered By: Reji Smith on 09-20-2024 CO2 [Moles/Vol] 27.0 mmol/L 21.0-32.0 [facility] Chest 1 View (Portable)on Chest 1 View (Portable) Normal [facility] Chloride measurementOrdered By: Reji Smith on 09-20-2024 Chloride [Moles/Vol] 102 mmol/L 98-107 [facility] Emergency Department Summary on 09-20-2024 Emergency Department Summary Normal [facility] Eosinophil percentageOrdered By: Reji Smith on 09-20-2024 Eosinophils/100 WBC (Bld) 2.9 % 0-5 [facility] Erythrocyte distribution wid th ratioOrdered By: Reji Smith on 09-20-2024 Erythrocyte distribution width (RBC) [Ratio] 15.0 % High 11.6-14.6 [facility] Erythrocyte distribution wid th standard deviationOrdered By: Reji Smith on 09-20-2024 Erythrocyte distribution width (RBC) [Entitic vol] 43.9 fL 35.1-43.9 [facility] Estimated glomerular filtrat ion rate (GFR) AmericanOrdered By: Reji Smith on 09-20-2024 Estimated GFR (MDRD) Amer 71 mL/min >60 [facility] Comment on above: GFR Calc Estimation of creatinine ashley aranceOrdered By: Reji Smith on 09-20-2024 Estimated Creatinine Clearance Calc 66.12 ml/min [facility] Glomerular filtration rate ( GFR) estimationOrdered By: Reji Smith on 09-20-2024 Estimated GFR (MDRD) Non-Af Amer 59 mL/min Low >60 [facility] Comment on above: Non- GFR Calc Glucose measurementOrdered B y: Reji Smith on 09-20-2024 Glucose [Mass/Vol] 147 mg/dL High 74-106 [facility] Comment on above: Fasting Glucose resu lt greater than or equal to 126 mg/dL suggests DIABETES MELLITUS per A.D.A. criteria. Hematocrit Auto (Bld) [Volum e fraction]Ordered By: Reji Smith on 09-20-2024 Hematocrit (Bld) [Volume fraction] 43.8 % 40-54 [facility] Hemoglobin measurementOrdere d By: Reji Smith on 09-20-2024 Hemoglobin (Bld) [Mass/Vol] 13.9 g/dL 13.0-16.5 [facility] Immature granulocytes/100 WB C Auto (Bld)Ordered By: Reji Smith on 09-20-2024 Immature granulocytes/100 WBC (Bld) 0.400 % 0.0-0.9 [facility] Comment on above: IG% - Immature Granu locytes (promyelocytes, myelocytes and metamyelocytes) > 1% indicates that a LEFT SHIFT is Present. L501.4020on 09-20-2024 TROPONIN-I HS 8 pg/mL Normal 3.0-78.0 [facility] Comment on above: Result Comment: Hannah irwin Note: New Test Units and Gender Specific Reference Ranges. For more information see Policy Stat Procedure [place] High Sensitivity Troponin (TNIH) and attachments. Performed By: #### L 501.4020 ####[facility] [address] [facility] [place], [address] L501.5425on 09-20-2024 TROPONIN-I HS 10 pg/mL Normal 3.0-78.0 [facility] Comment on above: Order Comment: 1Y Result Comment: Plerodríguez se Note: New Test Units and Gender Specific Reference Ranges. For more information see Policy Stat Procedure [place] High Sensitivity Troponin (TNIH) and attachments. Performed By: #### L 100.0100, L500.2500, L501.5425 ####[facility] [address] [place], [address] Lymphocytes Auto (Unsp spec) [#/Vol]Ordered By: Reji Smith on 09-20-2024 Lymphocytes (Bld) [#/Vol] 1.85 10*3/uL 0.83-4.5 1 [facility] Lymphocytes/100 WBC Auto (Un sp spec)Ordered By: Reji Smith on 09-20-2024 Lymphocytes/100 WBC (Bld) 16.3 % Low 19-41 [facility] MCV (mean corpuscular volume ) determinationOrdered By: Reji Smith on 09-20-2024 MCV (RBC) [Entitic vol] 80.4 fL 80-94 [facility] Manual differential comment Rey (Bld) [Interp]Ordered By: Reji Smith on 09-20-2024 Differential Comment SCANNED [facility] Comment on above: MONOCYTOSIS NOTED Mean corpuscular hemoglobin (MCH) determinationOrdered By: Reji Smith on 09-20-2024 MCH (RBC) [Entitic mass] 25.5 pg Low 27.0-32.0 [facility] Mean corpuscular hemoglobin concentration (MCHC) determinationOrdered By: Reji Smith on 09-20-2024 MCHC (RBC) [Mass/Vol] 31.7 g/dL Low 32-36 [facility] Mean platelet volume determi nationOrdered By: Reji Smith on 09-20-2024 Platelet mean volume (Bld) [Entitic vol] 11.3 fL 6.2-12.0 [facility] Monocyte percentageOrdered B y: Reji Smith on 09-20-2024 Monocytes/100 WBC (Bld) 14.0 % High 0-10 [facility] Neutrophil percentageOrdered By: Reji Smith on 09-20-2024 Neutrophils/100 WBC (Bld) 66.0 % 47-70 [facility] Nucleated red blood cell per centageOrdered By: eRji Smith on 09-20-2024 Nucleated RBC/100 WBC (Bld) [Ratio] 0 % 0-5 [facility] Pathologist review Rey (Unsp spec) [Interp]Ordered By: Reji Smith on 09-20-2024 Differential Pathologist's Review Reviewed [facility] Comment on above: Previous reported re sult: Tamara bernard Edited by: IRON on 09/22/24:1321Leukocytosis.Clinical correlation necessary.Callum Arteaga M.D. 09/22/24 AMENDED REPORT 09/22/24 1321 PATH REV previously reported as: Tamara bernard Platelet countOrdered By: Kevin Smith on 09-20-2024 Platelets (Bld) [#/Vol] 284 10*3/uL 150-450 [facility] Potassium measurementOrdered By: Reji Smith on 09-20-2024 Potassium [Moles/Vol] 3.8 mmol/L 3.5-5.1 [facility] RBC Auto (Bld) [#/Vol]Ordere d By: Reji Smith on 09-20-2024 RBC (Bld) [#/Vol] 5.45 10*6/uL 4.6-6.2 [facility] Serum anion gap measurementO rdered By: Reji Smith on 09-20-2024 Anion gap [Moles/Vol] 8 mmol/L 5-15 [facility] Serum or plasma calcium nahomy urement (mass/volume)Ordered By: Reji Smith on 09-20-2024 Calcium [Mass/Vol] 9.5 mg/dL 8.5-10.1 [facility] Serum or plasma creatinine m easurement (mass/volume)Ordered By: Reji Smith on 09-20-2024 Creatinine [Mass/Vol] 1.26 mg/dL 0.70-1.30 [facility] Comment on above: The validity of the calculated GFR & GFRAA in patients over 70 years has not been determined. Clinical correlation is essential. Serum or plasma urea nitroge n measurement (mass/volume)Ordered By: Reji Smith on 09-20-2024 Urea nitrogen [Mass/Vol] 27 mg/dL High 7-18 [facility] Sodium levelOrdered By: Reji Smith on 09-20-2024 Sodium [Moles/Vol] 137 mmol/L 136-145 [facility] Troponin IOrdered By: Reji sawyer on 09-20-2024 Troponin I High Sensitivity 8 pg/mL 3.0-78.0 [facility] Comment on above: Please Note: New Carmen t Units and Gender Specific Reference Ranges. For more information see Policy Stat Procedure [place] High Sensitivity Troponin (TNIH) and attachments. White blood cell (WBC) count Ordered By: Reji Smith on 09-20-2024 WBC (Bld) [#/Vol] 11.4 10*3/uL High 4.4-11.0 [facility] Cardiology Visit Reporton Cardiology Visit Report Normal [facility] Urine Cultureon 09-02-2024 [facility] Mixed Gram Positive Organisms [place] Count 80,000-100,000 MIX[facility] Mixed contaminants. Submit a new specimen if indicated. Normal [facility] Comment on above: Performed By: #### M 100.2200 ####[facility] [address] [place], [place], [id number] Lead EKGon 09-01-2024 12 Lead EKG Normal [facility] Abdomen/Pelvis W IV Cont ONL Yon 09-01-2024 Abdomen/Pelvis W IV Cont ONLY Normal [facility] Absolute neutrophil countOrd ered By: Mani Esquivel on 09-01-2024 Neutrophils (Bld) [#/Vol] 7.5 10*3/uL 2.0-7.7 [facility] Basic Metabolic Profile (BMP )on 09-01-2024 BUN/CRE 28.1 RATIO High 10-20 [facility] Comment on above: Order Comment: 'TROP ' Serial specimen #1, #2 or #3: 1 Performed By: #### L 100.0100, L500.2500, L501.4020, L501.5200 ####[facility] [address] [place], [address] CA,Total 9.3 mg/dL Normal 8.5-10.1 [facility] Comment on above: Order Comment: 'TROP ' Serial specimen #1, #2 or #3: 1 Performed By: #### L 100.0100, L500.2500, L501.4020, L501.5200 ####[facility] [address] [place], [address] Chloride [Moles/Vol] 106 mmol/L Normal 98-107 [facility] Comment on above: Order Comment: 'TROP ' Serial specimen #1, #2 or #3: 1 Performed By: #### L 100.0100, L500.2500, L501.4020, L501.5200 ####[facility] [address] [place], [address] CO2 [Moles/Vol] 24.0 mmol/L Normal 21.0-32.0 [facility] Comment on above: Order Comment: 'TROP ' Serial specimen #1, #2 or #3: 1 Performed By: #### L 100.0100, L500.2500, L501.4020, L501.5200 ####[facility] [address] [place], [address] Creatinine [Mass/Vol] 1.14 mg/dL Normal 0.70-1.30 [facility] Comment on above: Order Comment: 'TROP ' Serial specimen #1, #2 or #3: 1 Result Comment: The validity of the calculated GFR GFRAA in patients over70 years has not been determined. Clinical correlation isessential. Performed By: #### L 100.0100, L500.2500, L501.4020, L501.5200 ####[facility] [address] [place], [address] ECRCL 73.93 ml/min Normal [facility] Comment on above: Order Comment: 'TROP ' Serial specimen #1, #2 or #3: 1 Performed By: #### L 100.0100, L500.2500, L501.4020, L501.5200 ####[facility] [address] [place], [address] EST GFR - AA 79 mL/min Normal >60 [facility] Comment on above: Order Comment: 'TROP ' Serial specimen #1, #2 or #3: 1 Result Comment: Afri can Croatian GFR Calc Performed By: #### L 100.0100, L500.2500, L501.4020, L501.5200 ####[facility] [address] [place], [address] GAP 7 Normal 5-15 [facility] Comment on above: Order Comment: 'TROP ' Serial specimen #1, #2 or #3: 1 Performed By: #### L 100.0100, L500.2500, L501.4020, L501.5200 ####[facility] [address] [place], [address] GFR/1.73 sq M.predicted among non-blacks MDRD (S/P/Bld) [Vol rate/Area] 66 mL/min/{1.73_m2} Normal >60 [facility] Comment on above: Order Comment: 'TROP ' Serial specimen #1, #2 or #3: 1 Result Comment: Non- GFR Calc Performed By: #### L 100.0100, L500.2500, L501.4020, L501.5200 ####[facility] [address] [place], [address] Glucose [Mass/Vol] 98 mg/dL Normal 74-106 [facility] Comment on above: Order Comment: 'TROP ' Serial specimen #1, #2 or #3: 1 Performed By: #### L 100.0100, L500.2500, L501.4020, L501.5200 ####[facility] [address] [place], [address] Potassium [Moles/Vol] 3.6 mmol/L Normal 3.5-5.1 [facility] Comment on above: Order Comment: 'TROP ' Serial specimen #1, #2 or #3: 1 Performed By: #### L 100.0100, L500.2500, L501.4020, L501.5200 ####[facility] [address] [place], [address] Sodium [Moles/Vol] 138 mmol/L Normal 136-145 [facility] Comment on above: Order Comment: 'TROP ' Serial specimen #1, #2 or #3: 1 Performed By: #### L 100.0100, L500.2500, L501.4020, L501.5200 ####[facility] [address] [place], [address] Urea nitrogen [Mass/Vol] 32 mg/dL High 7-18 [facility] Comment on above: Order Comment: 'TROP ' Serial specimen #1, #2 or #3: 1 Performed By: #### L 100.0100, L500.2500, L501.4020, L501.5200 ####[facility] [address] [place], [address] Basophil percentageOrdered B y: Mani Esquivel on 09-01-2024 Basophils/100 WBC (Bld) 0.4 % 0-1 [facility] Bilirubin Test strip Ql (U)O rdered By: Mani Esquivel on 09-01-2024 Bilirubin Ql (U) Negative Negative [facility] Blood urea nitrogen (BUN)/cr eatinine ratioOrdered By: Mani Esquivel on 09-01-2024 Urea nitrogen/Creatinine [Mass ratio] 28.1 mg/mg High 07-06 [facility] CBC W/Diff, Automatedon 08-17 Absolute Lymph 2.06 X10 3/uL Normal 0.83-4.51 [facility] Comment on above: Performed By: #### L 100.0100, L500.2500, L501.4020, L501.5200 ####[facility] [address] [place], [address] Absolute Neut 7.5 X10 3/uL Normal 2.0-7.7 [facility] Comment on above: Performed By: #### L 100.0100, L500.2500, L501.4020, L501.5200 ####[facility] [address] [place], [address] Basophils/100 WBC (Bld) 0.4 % Normal 0-1 [facility] Comment on above: Performed By: #### L 100.0100, L500.2500, L501.4020, L501.5200 ####[facility] [address] [place], [address] Eosinophils/100 WBC (Bld) 2.9 % Normal 0-5 [facility] Comment on above: Performed By: #### L 100.0100, L500.2500, L501.4020, L501.5200 ####[facility] [address] [place], [address] Erythrocyte distribution width (RBC) [Ratio] 15.3 % High 11.6-14.6 [facility] Comment on above: Performed By: #### L 100.0100, L500.2500, L501.4020, L501.5200 ####[facility] [address] [place], [address] Hematocrit (Bld) [Volume fraction] 41.4 % Normal 40-54 [facility] Comment on above: Performed By: #### L 100.0100, L500.2500, L501.4020, L501.5200 ####[facility] [address] [place], [address] Hemoglobin (Bld) [Mass/Vol] 13.1 g/dL Normal 13.0-16.5 [facility] Comment on above: Performed By: #### L 100.0100, L500.2500, L501.4020, L501.5200 ####[facility] [address] [place], [address] IG% 0.300 Normal 0.0-0.9 [facility] Comment on above: Result Comment: IG% - Immature Granulocytes (promyelocytes, myelocytes andmetamyelocytes) > 1% indicates that a LEFT SHIFT is Present. Performed By: #### L 100.0100, L500.2500, L501.4020, L501.5200 ####[facility] [address] [place], [address] Lymphocytes/100 WBC (Bld) 18.2 % Low 19-41 [facility] Comment on above: Performed By: #### L 100.0100, L500.2500, L501.4020, L501.5200 ####[facility] [address] [place], [address] MCH (RBC) [Entitic mass] 26.2 pg Low 27.0-32.0 [facility] Comment on above: Performed By: #### L 100.0100, L500.2500, L501.4020, L501.5200 ####[facility] [address] [place], [address] MCHC (RBC) [Mass/Vol] 31.6 g/dL Low 32-36 [facility] Comment on above: Performed By: #### L 100.0100, L500.2500, L501.4020, L501.5200 ####[facility] [address] [place], [address] MCV (RBC) [Entitic vol] 82.8 fL Normal 80-94 [facility] Comment on above: Performed By: #### L 100.0100, L500.2500, L501.4020, L501.5200 ####[facility] [address] [place], [address] Monocytes/100 WBC (Bld) 11.8 % High 0-10 [facility] Comment on above: Performed By: #### L 100.0100, L500.2500, L501.4020, L501.5200 ####[facility] [address] [place], [address] Neutrophils/100 WBC (Bld) 66.4 % Normal 47-70 [facility] Comment on above: Performed By: #### L 100.0100, L500.2500, L501.4020, L501.5200 ####[facility] [address] [place], [address] Nucleated RBC (Bld) [#/Vol] 0 10*3/uL Normal 0-5 [facility] Comment on above: Performed By: #### L 100.0100, L500.2500, L501.4020, L501.5200 ####[facility] [address] [place], [address] Platelet mean volume (Bld) [Entitic vol] 11.2 fL Normal 6.2-12.0 [facility] Comment on above: Performed By: #### L 100.0100, L500.2500, L501.4020, L501.5200 ####[facility] [address] [place], [address] Platelets (Bld) [#/Vol] 301 10*3/uL Normal 150-450 [facility] Comment on above: Performed By: #### L 100.0100, L500.2500, L501.4020, L501.5200 ####[facility] [address] [place], [address] RBC (Bld) [#/Vol] 5.00 10*6/uL Normal 4.6-6.2 [facility] Comment on above: Performed By: #### L 100.0100, L500.2500, L501.4020, L501.5200 ####[facility] [address] [place], [address] RDW SD 46.0 fl High 35.1-43.9 [facility] Comment on above: Performed By: #### L 100.0100, L500.2500, L501.4020, L501.5200 ####[facility] [address] [place], [address] WBC (Bld) [#/Vol] 11.3 10*3/uL High 4.4-11.0 [facility] Comment on above: Performed By: #### L 100.0100, L500.2500, L501.4020, L501.5200 ####[facility] [address] [place], [address] Carbon dioxide measurementOr dered By: aMni Esquivel on 09-01-2024 CO2 [Moles/Vol] 24.0 mmol/L 21.0-32.0 [facility] Chest PA and Lateralon 09-01 Chest PA and Lateral Normal [facility] Chloride measurementOrdered By: Mani Esquivel on 09-01-2024 Chloride [Moles/Vol] 106 mmol/L 98-107 [facility] Emergency Department Summary on 09-01-2024 Emergency Department Summary Normal [facility] Eosinophil percentageOrdered By: Mani Esquivel on 09-01-2024 Eosinophils/100 WBC (Bld) 2.9 % 0-5 [facility] Epithelial cells.squamous LM Ql (Urine sed)Ordered By: Mani Esquivel on 09-01-2024 Epithelial cells.squamous LM.HPF (Urine sed) [#/Area] 5 /[HPF] 0-5 [facility] Erythrocyte distribution wid th ratioOrdered By: Mani Esquivel on 09-01-2024 Erythrocyte distribution width (RBC) [Ratio] 15.3 % High 11.6-14.6 [facility] Erythrocyte distribution wid th standard deviationOrdered By: Mani Esquivel on 09-01-2024 Erythrocyte distribution width (RBC) [Entitic vol] 46.0 fL High 35.1-43.9 [facility] Estimated glomerular filtrat ion rate (GFR) AmericanOrdered By: Mani Esquivel on 09-01-2024 Estimated GFR (MDRD) Amer 79 mL/min >60 [facility] Comment on above: GFR Calc Estimation of creatinine ashley aranceOrdered By: Mani Esquivel on 09-01-2024 Estimated Creatinine Clearance Calc 73.93 ml/min [facility] Glomerular filtration rate ( GFR) estimationOrdered By: Mani Esquivel on 09-01-2024 Estimated GFR (MDRD) Non-Af Amer 66 mL/min >60 [facility] Comment on above: Non- GFR Calc Glucose Ql (U)Ordered By: Brigitte Esquivel on 09-01-2024 Glucose (U) [Mass/Vol] 1000 mg/dL High Normal [facility] Glucose measurementOrdered B y: Mani Esquivel on 09-01-2024 Glucose [Mass/Vol] 98 mg/dL 74-106 [facility] Hematocrit Auto (Bld) [Volum e fraction]Ordered By: Mani Esquivel on 09-01-2024 Hematocrit (Bld) [Volume fraction] 41.4 % 40-54 [facility] Hemoglobin measurementOrdere d By: Mani Esquivel on 09-01-2024 Hemoglobin (Bld) [Mass/Vol] 13.1 g/dL 13.0-16.5 [facility] Immature granulocytes/100 WB C Auto (Bld)Ordered By: Mani Esqiuvel on 09-01-2024 Immature granulocytes/100 WBC (Bld) 0.300 % 0.0-0.9 [facility] Comment on above: IG% - Immature Granu locytes (promyelocytes, myelocytes and metamyelocytes) > 1% indicates that a LEFT SHIFT is Present. Ketones Test strip Ql (U)Ord ered By: Mani Esquivel on 09-01-2024 Ketones Ql (U) Negative Negative [facility] L501.4020on 09-01-2024 TROPONIN-I HS 11 pg/mL Normal 3.0-78.0 [facility] Comment on above: Order Comment: 'TROP ' Serial specimen #1, #2 or #3: 2 Result Comment: Plea se Note: New Test Units and Gender Specific Reference Ranges. For more information see Policy Stat Procedure [place] High Sensitivity Troponin (TNIH) and attachments. Performed By: #### L 501.4020 ####[facility] [address] [place], [address] TROPONIN-I HS 10 pg/mL Normal 3.0-78.0 [facility] Comment on above: Order Comment: 'TROP ' Serial specimen #1, #2 or #3: 1 Result Comment: Plea se Note: New Test Units and Gender Specific Reference Ranges. For more information see Policy Stat Procedure [place] High Sensitivity Troponin (TNIH) and attachments. Performed By: #### L 100.0100, L500.2500, L501.4020, L501.5200 ####[facility] [address] [place], [address] Lymphocytes Auto (Unsp spec) [#/Vol]Ordered By: Mani Esquivel on 09-01-2024 Lymphocytes (Bld) [#/Vol] 2.06 10*3/uL 0.83-4.5 1 [facility] Lymphocytes/100 WBC Auto (Un sp spec)Ordered By: Mani Esquivel on 09-01-2024 Lymphocytes/100 WBC (Bld) 18.2 % Low 19-41 [facility] MCV (mean corpuscular volume ) determinationOrdered By: Mani Esquivel on 09-01-2024 MCV (RBC) [Entitic vol] 82.8 fL 80-94 [facility] Magnesiumon 09-01-2024 Magnesium [Mass/Vol] 2.2 mg/dL Normal 1.6-2.6 [facility] Comment on above: Order Comment: 'TROP ' Serial specimen #1, #2 or #3: 1 Performed By: #### L 100.0100, L500.2500, L501.4020, L501.5200 ####[facility] [address] [place], [address] Magnesium measurementOrdered By: Mani Esquivel on 09-01-2024 Magnesium [Mass/Vol] 2.2 mg/dL 1.6-2.6 [facility] Mean corpuscular hemoglobin (MCH) determinationOrdered By: Mani Esquivel on 09-01-2024 MCH (RBC) [Entitic mass] 26.2 pg Low 27.0-32.0 [facility] Mean corpuscular hemoglobin concentration (MCHC) determinationOrdered By: Mani Esquivel on 09-01-2024 MCHC (RBC) [Mass/Vol] 31.6 g/dL Low 32-36 [facility] Mean platelet volume determi nationOrdered By: Mani Esquivel on 09-01-2024 Platelet mean volume (Bld) [Entitic vol] 11.2 fL 6.2-12.0 [facility] Microscopic analysis of urin e for red blood cells (RBC)Ordered By: Mani Esquivel on 09-01-2024 Urine RBC 10-25 SEEN /hpf 0-5 [facility] Monocyte percentageOrdered B y: Mani Esquivel on 09-01-2024 Monocytes/100 WBC (Bld) 11.8 % High 0-10 [facility] Mucus LM Ql (Urine sed)Order ed By: Mani Esquivel on 09-01-2024 Mucus Ql (Urine sed) 0 SEEN /hpf [facility] Neutrophil percentageOrdered By: Mani Esquivel on 09-01-2024 Neutrophils/100 WBC (Bld) 66.4 % 47-70 [facility] Nitrite Test strip Ql (U)Ord ered By: Mani Esquivel on 09-01-2024 Nitrite Ql (U) Negative Negative [facility] Nucleated red blood cell per centageOrdered By: Mani Esquivel on 09-01-2024 Nucleated RBC/100 WBC (Bld) [Ratio] 0 % 0-5 [facility] Platelet countOrdered By: Brigitte Esquivel on 09-01-2024 Platelets (Bld) [#/Vol] 301 10*3/uL 150-450 [facility] Potassium measurementOrdered By: Mani Esquivel on 09-01-2024 Potassium [Moles/Vol] 3.6 mmol/L 3.5-5.1 [facility] Protein Test strip Ql (U)Ord ered By: Mani Esquivle on 09-01-2024 Protein Ql (U) 30 mg/dl High Negative [facility] RBC Auto (Bld) [#/Vol]Ordere d By: Mani Esquivel on 09-01-2024 RBC (Bld) [#/Vol] 5.00 10*6/uL 4.6-6.2 [facility] Serum anion gap measurementO rdered By: Mani Esquivel on 09-01-2024 Anion gap [Moles/Vol] 7 mmol/L 5-15 [facility] Serum or plasma calcium nahomy urement (mass/volume)Ordered By: Mani Esquivel on 09-01-2024 Calcium [Mass/Vol] 9.3 mg/dL 8.5-10.1 [facility] Serum or plasma creatinine m easurement (mass/volume)Ordered By: Mani Esquivel on 09-01-2024 Creatinine [Mass/Vol] 1.14 mg/dL 0.70-1.30 [facility] Comment on above: The validity of the calculated GFR & GFRAA in patients over 70 years has not been determined. Clinical correlation is essential. Serum or plasma urea nitroge n measurement (mass/volume)Ordered By: Mani Esquivel on 09-01-2024 Urea nitrogen [Mass/Vol] 32 mg/dL High 7-18 [facility] Sodium levelOrdered By: Lit Esquivel on 09-01-2024 Sodium [Moles/Vol] 138 mmol/L 136-145 [facility] Troponin IOrdered By: Mani Esquivel on 09-01-2024 Troponin I High Sensitivity 11 pg/mL 3.0-78.0 [facility] Comment on above: Please Note: New [place] t Units and Gender Specific Reference Ranges. For more information see Policy Stat Procedure [place] High Sensitivity Troponin (TNIH) and attachments. Urinalysis, Completeon 09-01 BACTERIA 4+ /hpf Normal None Seen [facility] Comment on above: Order Comment: GO CTOR TO SPECIFY Performed By: #### L 400.0001 ####[facility] [address] [place] [address] EPI,SQUAMOUS 5-10 SEEN Normal 0-5 [facility] Comment on above: Order Comment: GO CTOR TO SPECIFY Performed By: #### L 400.0001 ####[facility] [address] [facility] [address] RBC 10-25 SEEN Normal 0-5 [facility] Comment on above: Order Comment: GO CTOR TO SPECIFY Performed By: #### L 400.0001 ####[facility] [address] [facility] [address] WBC 25-50 SEEN Normal 0-5 [facility] Comment on above: Order Comment: GO CTOR TO SPECIFY Performed By: #### L 400.0001 ####[facility] [address] [facility] [address] Mucus Ql (Urine sed) 0 SEEN Normal [facility] Comment on above: Order Comment: GO CTOR TO SPECIFY Performed By: #### L 400.0001 ####[facility] [address] [place] [id number] Urine blood detectionOrdered By: Mani Esquivel on 09-01-2024 Urine Occult Blood 150 /ul High Negative [facility] Urine clarityOrdered By: Rashel Esquivel on 09-01-2024 Clarity (U) Cloudy Clear [facility] Urine color determinationOrd ered By: Mani Esquivel on 09-01-2024 Color (U) Yellow Yellow [facility] Urine cultureOrdered By: Rashel Esquivel on 09-01-2024 Bacteria identified Cx Nom (U) Positive Abnormal [facility] Urine leukocyte esterase det ection by dipstickOrdered By: Mani Esquivel on 09-01-2024 Leukocyte esterase Test strip Ql (U) 500 /ul High Negative [facility] Urine pHOrdered By: Mani khanna on 09-01-2024 pH (U) 5.0 [pH] 5.0 - 8.0 [facility] Urine sediment bacteria coun t by microscopy (number/high power field)Ordered By: Mani Esquivel on 09-01-2024 Bacteria LM.HPF (Urine sed) [#/Area] 4 /[HPF] None Seen [facility] Urine specific gravity measu rementOrdered By: Mani Esquivel on 09-01-2024 Specific gravity (U) [Rel density] 1.025 1.002-1.03 0 [facility] Urobilinogen Ql (U)Ordered B y: Mani Esquivel on 09-01-2024 Urine Urobilinogen Normal mg/dl Normal [facility] White blood cell (WBC) count Ordered By: Mani Esquivel on 09-01-2024 WBC (Bld) [#/Vol] 11.3 10*3/uL High 4.4-11.0 [facility] White blood cell countOrdere d By: Mani Esquivel on 09-01-2024 Urine WBC 25-50 SEEN /hpf 0-5 [facility] CNPNon 08-18-2024 CNPN Telephone ([facility]) ----- ESHAFAISAL PYLE ([id number]) 1945 M Date Time Provider Department 08/18/24 MATHIEU VIRGEN During your visit today, we recorded the following information about you: Kristina Higuera LPN 08/18/2024 12:58 PM Signed Kate with [facility] calls to check on status of order [...] Date Reviewed: 07/29/2024 Reviewed by: Julianna Hood APRN.CYBER SECURITY SYSTEMS ENGINEER - Fully Assessed Reason for Visit: Orders [...] 1 tablet by mouth once daily. - losartan-hydroCHLOROthiaz hardeep (HYZAAR) 100-12.5 mg per tablet Take 1 tablet by mouth once daily. - albuterol HFA (VENTOLIN HFA) 90 mcg/actuation inhaler Inhale 2 Puffs as instructed every 4 hours as needed. - insulin lispro (HUMALOG KWIKPEN INSULIN) 100 unit/mL Inject 20 Units subcutaneously three times a day before meals. Getting through [facility] - dilTIAZem CD (CARDIZEM CD, [...] mouth every 12 hours. Prescribed by outside embroiderer hand - insulin glargine (BASAGLAR KWIKPEN U-100 INSULIN) [...] polyps [Z (more content not included)... Normal [facility] Ema 08-15-2024 CAESARN Telephone ([facility]) ----- ESHAFAISAL ([id number]) 1945 M Date Time Provider Department 08/15/24 MATHIEU VIRGEN During your visit today, we recorded the following information about you: Angelina Bliss RN 08/15/2024 9:05 AM Signed Summer calling with [employer], the [employer] assisting patient with Dexcom G7 CGM. Requesting recent OV note to further proceed with pt's CGM order. Faxed as requested to [phone]. Angelina Bliss RN Allergies As of Date: 08/15/2024 Noted Allergy Reaction AMOXICILLIN 05/11/2005 Comments: generalized erythema Date Reviewed: 07/29/2024 Reviewed by: Julianna Hood APRN.CYBER SECURITY SYSTEMS ENGINEER - Fully Assessed Reason for Visit: CGM [...] - Blood-Glucose Meter,Continuous (FREESTYLE MARIELLE 3 READER) [facility] Use to check blood sugar at least four (4) times daily. Uses insulin - Blood-Glucose Sensor (FREESTYLE MARIELLE 3 PLUS SENSOR) sayra Apply new sensor every fifteen (15) days to upper arm. - colestipol (COLESTID) 1 gram tablet Take 1 tablet by mouth once daily. - losartan-hydroCHLOROthiaz hardeep (HYZAAR) 100-12.5 mg per tablet Take 1 [...] mouth every 12 hours. Prescribed by outside embroiderer hand - insulin glargine (BASAGLAR KWIKPEN U-100 INSULIN) [...] Left low (more content not included)... Normal [facility] Cardiology Visit Reporton Cardiology Visit Report Normal [facility] Absolute neutrophil countOrd ered By: Sergey Carreon on 08-11-2024 Neutrophils (Bld) [#/Vol] 8.0 10*3/uL High 2.0-7.7 [facility] Albumin to globulin ratioOrd ered By: Sergey Carreon on 08-11-2024 Albumin/Globulin [Mass ratio] 0.9 {ratio} 0.9-2.4 [facility] Basophil percentageOrdered B y: Sergey Carreon on 08-11-2024 Basophils/100 WBC (Bld) 0.4 % 0-1 [facility] Bilirubin, totalOrdered By: Sergey Carreon on 08-11-2024 Bilirubin [Mass/Vol] 0.30 mg/dL 0.20-1.00 [facility] Comment on above: For patients on eltr ombopag therapy, use of Dimension [place] TBIL is not recommended. Blood urea nitrogen (BUN)/cr eatinine ratioOrdered By: Sergey Lauri on 08-11-2024 Urea nitrogen/Creatinine [Mass ratio] 25.5 mg/mg High 10-20 [facility] CBC W/Diff, Automatedon 07-19 Absolute Lymph 1.24 X10 3/uL Normal 0.83-4.51 [facility] Comment on above: Performed By: #### L 100.0100, L500.4050, L501.5200, L501.9520 ####[facility] [address] [place], [address] Absolute Neut 8.0 X10 3/uL High 2.0-7.7 [facility] Comment on above: Performed By: #### L 100.0100, L500.4050, L501.5200, L501.9520 ####[facility] [address] [place], [address] Basophils/100 WBC (Bld) 0.4 % Normal 0-1 [facility] Comment on above: Performed By: #### L 100.0100, L500.4050, L501.5200, L501.9520 ####[facility] [address] [place], [address] Eosinophils/100 WBC (Bld) 2.3 % Normal 0-5 [facility] Comment on above: Performed By: #### L 100.0100, L500.4050, L501.5200, L501.9520 ####[facility] [address] [place], [address] Erythrocyte distribution width (RBC) [Ratio] 14.5 % Normal 11.6-14.6 [facility] Comment on above: Performed By: #### L 100.0100, L500.4050, L501.5200, L501.9520 ####[facility] [address] [place], [address] Hematocrit (Bld) [Volume fraction] 42.3 % Normal 40-54 [facility] Comment on above: Performed By: #### L 100.0100, L500.4050, L501.5200, L501.9520 ####[facility] [address] [place], [address] Hemoglobin (Bld) [Mass/Vol] 13.4 g/dL Normal 13.0-16.5 [facility] Comment on above: Performed By: #### L 100.0100, L500.4050, L501.5200, L501.9520 ####[facility] [address] [place], [address] IG% 0.500 Normal 0.0-0.9 [facility] Comment on above: Result Comment: IG% - Immature Granulocytes (promyelocytes, myelocytes andmetamyelocytes) > 1% indicates that a LEFT SHIFT is Present. Performed By: #### L 100.0100, L500.4050, L501.5200, L501.9520 ####[facility] [address] [place], [address] Lymphocytes/100 WBC (Bld) 11.8 % Low 19-41 [facility] Comment on above: Performed By: #### L 100.0100, L500.4050, L501.5200, L501.9520 ####[facility] [address] [place], [address] MCH (RBC) [Entitic mass] 26.4 pg Low 27.0-32.0 [facility] Comment on above: Performed By: #### L 100.0100, L500.4050, L501.5200, L501.9520 ####[facility] [address] [place], [address] MCHC (RBC) [Mass/Vol] 31.7 g/dL Low 32-36 [facility] Comment on above: Performed By: #### L 100.0100, L500.4050, L501.5200, L501.9520 ####[facility] [address] [place], [address] MCV (RBC) [Entitic vol] 83.3 fL Normal 80-94 [facility] Comment on above: Performed By: #### L 100.0100, L500.4050, L501.5200, L501.9520 ####[facility] [address] [place], [address] Monocytes/100 WBC (Bld) 9.3 % Normal 0-10 [facility] Comment on above: Performed By: #### L 100.0100, L500.4050, L501.5200, L501.9520 ####[facility] [address] [place], [address] Neutrophils/100 WBC (Bld) 75.7 % High 47-70 [facility] Comment on above: Performed By: #### L 100.0100, L500.4050, L501.5200, L501.9520 ####[facility] [address] [place], [address] Nucleated RBC (Bld) [#/Vol] 0 10*3/uL Normal 0-5 [facility] Comment on above: Performed By: #### L 100.0100, L500.4050, L501.5200, L501.9520 ####[facility] [address] [place], [address] Platelet mean volume (Bld) [Entitic vol] 11.4 fL Normal 6.2-12.0 [facility] Comment on above: Performed By: #### L 100.0100, L500.4050, L501.5200, L501.9520 ####[facility] [address] [place], [address] Platelets (Bld) [#/Vol] 241 10*3/uL Normal 150-450 [facility] Comment on above: Performed By: #### L 100.0100, L500.4050, L501.5200, L501.9520 ####[facility] [address] [place], [address] RBC (Bld) [#/Vol] 5.08 10*6/uL Normal 4.6-6.2 [facility] Comment on above: Performed By: #### L 100.0100, L500.4050, L501.5200, L501.9520 ####[facility] [address] [place], [address] RDW SD 43.5 fl Normal 35.1-43.9 [facility] Comment on above: Performed By: #### L 100.0100, L500.4050, L501.5200, L501.9520 ####[facility] [address] [place], [address] WBC (Bld) [#/Vol] 10.6 10*3/uL Normal 4.4-11.0 [facility] Comment on above: Performed By: #### L 100.0100, L500.4050, L501.5200, L501.9520 ####[facility] [address] [place], [address] [facility] FAISAL ALARCON ([id number]) 1945 M Date Time Provider Department 08/11/24 MATHIEU V[facility]GEN [facility] During your visit today, we recorded the following information about you: Tammy Davies LPN 08/11/2024 1:12 PM Signed Patient daughter Farida calling father is very pale, weak, has dizziness, [...] Date Reviewed: 07/29/2024 Reviewed by: Julianna Hood APRN.[facility] - Fully Assessed Reason for Visit: Patient [...] - Blood-Glucose Meter,Continuous (FREESTYLE MARIELLE 3 READER) [facility] Use to check blood sugar at least four (4) times daily. Uses insulin - Blood-Glucose Sensor (FREESTYLE MARIELLE 3 PLUS SENSOR) sayra Apply new sensor every fifteen (15) days to upper arm. - colestipol (COLESTID) 1 gram tablet Take 1 tablet by mouth once daily. - losartan-hydroCHLOROthiaz hardeep (HYZAAR) 100-12.5 mg per tablet Take 1 tablet by mouth once daily. - albuterol HFA (VENTOLIN HFA) 90 mcg/actuation inhaler Inhale 2 Puffs as instructed every 4 hours as needed. - insulin lispro (HUMALOG KWIKPEN INSULIN) 100 unit/mL Inject 20 Units subcutaneously three times a day before meals. Getting through [facility] - dilTIAZem CD (CARDIZEM CD, [...] mouth every 12 hours. Prescribed by outside embroiderer hand - insulin glargine (BASAGLAR KWIKPEN U-100 INSULIN) [...] atrial fibrillatio (more content not included)... Normal [facility] Carbon dioxide measurementOr dered By: Sergey Carreon on 08-11-2024 CO2 [Moles/Vol] 25.0 mmol/L 21.0-32.0 [facility] Chloride measurementOrdered By: Sergey Carreon on 08-11-2024 Chloride [Moles/Vol] 104 mmol/L 98-107 [facility] Comprehensive Metabolic Prof ilon 08-11-2024 Albumin [Mass/Vol] 3.6 g/dL Normal 3.2-5.0 [facility] Comment on above: Performed By: #### L 100.0100, L500.4050, L501.5200, L501.9520 ####[facility] [address] [place], [address] Albumin/Globulin [Mass ratio] 0.9 {ratio} Normal 0.9-2.4 [facility] Comment on above: Performed By: #### L 100.0100, L500.4050, L501.5200, L501.9520 ####[facility] [address] [place], [address] ALK P 91 U/L Normal 45-117 [facility] Comment on above: Performed By: #### L 100.0100, L500.4050, L501.5200, L501.9520 ####[facility] [address] [place], [address] ALT [Catalytic activity/Vol] 19 U/L Normal 16-61 [facility] Comment on above: Performed By: #### L 100.0100, L500.4050, L501.5200, L501.9520 ####[facility] [address] [place], [address] AST [Catalytic activity/Vol] 14 U/L Low 15-37 [facility] Comment on above: Performed By: #### L 100.0100, L500.4050, L501.5200, L501.9520 ####[facility] [address] [place], [address] Bilirubin [Mass/Vol] 0.30 mg/dL Normal 0.20-1.00 [facility] Comment on above: Result Comment: For patients on eltrombopag therapy, use of Dimension [place] TBIL is not recommended. Performed By: #### L 100.0100, L500.4050, L501.5200, L501.9520 ####[facility] [address] [place], [address] BUN/CRE 25.5 RATIO High 10-20 [facility] Comment on above: Performed By: #### L 100.0100, L500.4050, L501.5200, L501.9520 ####[facility] [address] [place], [address] CA,Total 9.6 mg/dL Normal 8.5-10.1 [facility] Comment on above: Performed By: #### L 100.0100, L500.4050, L501.5200, L501.9520 ####[facility] [address] [place], [address] Chloride [Moles/Vol] 104 mmol/L Normal 98-107 [facility] Comment on above: Performed By: #### L 100.0100, L500.4050, L501.5200, L501.9520 ####[facility] [address] [place], [address] CO2 [Moles/Vol] 25.0 mmol/L Normal 21.0-32.0 [facility] Comment on above: Performed By: #### L 100.0100, L500.4050, L501.5200, L501.9520 ####[facility] [address] [place], [address] Creatinine [Mass/Vol] 1.37 mg/dL High 0.70-1.30 [facility] Comment on above: Result Comment: The validity of the calculated GFR GFRAA in patients over70 years has not been determined. Clinical correlation isessential. Performed By: #### L 100.0100, L500.4050, L501.5200, L501.9520 ####[facility] [address] [place], [address] EST GFR - AA 64 mL/min Normal >60 [facility] Comment on above: Result Comment: Afri can Croatian GFR Calc Performed By: #### L 100.0100, L500.4050, L501.5200, L501.9520 ####[facility] [address] [place], [address] GAP 8 Normal 5-15 [facility] Comment on above: Performed By: #### L 100.0100, L500.4050, L501.5200, L501.9520 ####[facility] [address] [place], [address] GFR/1.73 sq M.predicted among non-blacks MDRD (S/P/Bld) [Vol rate/Area] 53 mL/min/{1.73_m2} Low >60 [facility] Comment on above: Result Comment: Non- GFR Calc Performed By: #### L 100.0100, L500.4050, L501.5200, L501.9520 ####[facility] [address] [place], [address] Globulin (S) [Mass/Vol] 3.9 g/dL Normal 2.2-4.2 [facility] Comment on above: Performed By: #### L 100.0100, L500.4050, L501.5200, L501.9520 ####[facility] [address] [place], [address] Glucose [Mass/Vol] 168 mg/dL High 74-106 [facility] Comment on above: Result Comment: Fast ing Glucose result greater than or equal to 126 mg/dLsuggests DIABETES MELLITUS per A.D.A. criteria. Performed By: #### L 100.0100, L500.4050, L501.5200, L501.9520 ####[facility] [address] [place], [address] Potassium [Moles/Vol] 4.2 mmol/L Normal 3.5-5.1 [facility] Comment on above: Performed By: #### L 100.0100, L500.4050, L501.5200, L501.9520 ####[facility] [address] [place], [address] Sodium [Moles/Vol] 136 mmol/L Normal 136-145 [facility] Comment on above: Performed By: #### L 100.0100, L500.4050, L501.5200, L501.9520 ####[facility] [address] [place], [address] T PROT 7.5 g/dL Normal 6.4-8.2 [facility] Comment on above: Performed By: #### L 100.0100, L500.4050, L501.5200, L501.9520 ####[facility] [address] [place], [address] Urea nitrogen [Mass/Vol] 35 mg/dL High 7-18 [facility] Comment on above: Performed By: #### L 100.0100, L500.4050, L501.5200, L501.9520 ####[facility] [address] [place], [address] Eosinophil percentageOrdered By: Sergey Carreon on 08-11-2024 Eosinophils/100 WBC (Bld) 2.3 % 0-5 [facility] Erythrocyte distribution wid th ratioOrdered By: Sergey Carreon on 08-11-2024 Erythrocyte distribution width (RBC) [Ratio] 14.5 % 11.6-14.6 [facility] Erythrocyte distribution wid th standard deviationOrdered By: Sergey Carreon on 08-11-2024 Erythrocyte distribution width (RBC) [Entitic vol] 43.5 fL 35.1-43.9 [facility] Estimated glomerular filtrat ion rate (GFR) AmericanOrdered By: Sergey Carreon on 08-11-2024 Estimated GFR (MDRD) Amer 64 mL/min >60 [facility] Comment on above: GFR Calc Glomerular filtration rate ( GFR) estimationOrdered By: Sergey Carreon on 08-11-2024 Estimated GFR (MDRD) Non-Af Amer 53 mL/min Low >60 [facility] Comment on above: Non- GFR Calc Glucose measurementOrdered B y: Sergey Carreon on 08-11-2024 Glucose [Mass/Vol] 168 mg/dL High 74-106 [facility] Comment on above: Fasting Glucose resu lt greater than or equal to 126 mg/dL suggests DIABETES MELLITUS per A.D.A. criteria. Hematocrit Auto (Bld) [Volum e fraction]Ordered By: Sergey Carreon on 08-11-2024 Hematocrit (Bld) [Volume fraction] 42.3 % 40-54 [facility] Hemoglobin measurementOrdere d By: Sergey Carreon on 08-11-2024 Hemoglobin (Bld) [Mass/Vol] 13.4 g/dL 13.0-16.5 [facility] Immature granulocytes/100 WB C Auto (Bld)Ordered By: Sergey Carreon on 08-11-2024 Immature granulocytes/100 WBC (Bld) 0.500 % 0.0-0.9 [facility] Comment on above: IG% - Immature Granu locytes (promyelocytes, myelocytes and metamyelocytes) > 1% indicates that a LEFT SHIFT is Present. Laboratory - Chemistry and C hemistry - challengeOrdered By: Sergey Carreon on 08-11-2024 AST [Catalytic activity/Vol] 14 U/L Low 15-37 [facility] Lymphocytes Auto (Unsp spec) [#/Vol]Ordered By: Sergey Carreon on 08-11-2024 Lymphocytes (Bld) [#/Vol] 1.24 10*3/uL 0.83-4.5 1 [facility] Lymphocytes/100 WBC Auto (Un sp spec)Ordered By: Sergey Carreon on 08-11-2024 Lymphocytes/100 WBC (Bld) 11.8 % Low 19-41 [facility] MCV (mean corpuscular volume ) determinationOrdered By: Sergey Carreon on 08-11-2024 MCV (RBC) [Entitic vol] 83.3 fL 80-94 [facility] Magnesiumon 08-11-2024 Magnesium [Mass/Vol] 2.2 mg/dL Normal 1.6-2.6 [facility] Comment on above: Performed By: #### L 100.0100, L500.4050, L501.5200, L501.9520 ####[facility] [address] [place], [address] Magnesium measurementOrdered By: Sergey Carreon on 08-11-2024 Magnesium [Mass/Vol] 2.2 mg/dL 1.6-2.6 [facility] Mean corpuscular hemoglobin (MCH) determinationOrdered By: Sergey Carreon on 08-11-2024 MCH (RBC) [Entitic mass] 26.4 pg Low 27.0-32.0 [facility] Mean corpuscular hemoglobin concentration (MCHC) determinationOrdered By: Sergey Carreon on 08-11-2024 MCHC (RBC) [Mass/Vol] 31.7 g/dL Low 32-36 [facility] Mean platelet volume determi nationOrdered By: Sergey Carreon on 08-11-2024 Platelet mean volume (Bld) [Entitic vol] 11.4 fL 6.2-12.0 [facility] Monocyte percentageOrdered B y: Sergey Carreon on 08-11-2024 Monocytes/100 WBC (Bld) 9.3 % 0-10 [facility] Neutrophil percentageOrdered By: Sergey Carreon on 08-11-2024 Neutrophils/100 WBC (Bld) 75.7 % High 47-70 [facility] Nucleated red blood cell per centageOrdered By: Sergey Carreon on 08-11-2024 Nucleated RBC/100 WBC (Bld) [Ratio] 0 % 0-5 [facility] Platelet countOrdered By: Marcelina Carreon on 08-11-2024 Platelets (Bld) [#/Vol] 241 10*3/uL 150-450 [facility] Potassium measurementOrdered By: Sergey Carreon on 08-11-2024 Potassium [Moles/Vol] 4.2 mmol/L 3.5-5.1 [facility] RBC Auto (Bld) [#/Vol]Ordere d By: Sergey Carreon on 08-11-2024 RBC (Bld) [#/Vol] 5.08 10*6/uL 4.6-6.2 [facility] Serum anion gap measurementO rdered By: Sergey Carreon on 08-11-2024 Anion gap [Moles/Vol] 8 mmol/L 5-15 [facility] Serum globulin measurementOr dered By: Sergey Carreon on 08-11-2024 Globulin (S) [Mass/Vol] 3.9 g/dL 2.2-4.2 [facility] Serum or plasma alanine cottrell otransferase (ALT) measurementOrdered By: Sergey Carreon on 08-11-2024 ALT [Catalytic activity/Vol] 19 U/L 16-61 [facility] Serum or plasma albumin nahomy urement (mass/volume)Ordered By: Sergey Carreon on 08-11-2024 Albumin [Mass/Vol] 3.6 g/dL 3.2-5.0 [facility] Serum or plasma alkaline ahsan sphatase measurementOrdered By: Sergey Carreon on 08-11-2024 ALP [Catalytic activity/Vol] 91 U/L 45-117 [facility] Serum or plasma calcium nahomy urement (mass/volume)Ordered By: Sergey Carreon on 08-11-2024 Calcium [Mass/Vol] 9.6 mg/dL 8.5-10.1 [facility] Serum or plasma creatinine m easurement (mass/volume)Ordered By: Sergey Carreon on 08-11-2024 Creatinine [Mass/Vol] 1.37 mg/dL High 0.70-1.30 [facility] Comment on above: The validity of the calculated GFR & GFRAA in patients over 70 years has not been determined. Clinical correlation is essential. Serum or plasma urea nitroge n measurement (mass/volume)Ordered By: Sergey Carreon on 08-11-2024 Urea nitrogen [Mass/Vol] 35 mg/dL High 7-18 [facility] Sodium levelOrdered By: Sergey Carreon on 08-11-2024 Sodium [Moles/Vol] 136 mmol/L 136-145 [facility] TSH QnOrdered By: Sergey Carreon on 08-11-2024 Thyroid Stimulating Hormone (TSH) 1.250 uIU/mL 0.358-3.74 0 [facility] Thyroid Stim Hormone (TSH)on 08-11-2024 TSH 1.250 uIU/mL Normal 0.358-3.74 0 [facility] Comment on above: Performed By: #### L 100.0100, L500.4050, L501.5200, L501.9520 ####[facility] [address] [place], [address] Total proteinOrdered By: Morgan Carreon on 08-11-2024 Protein [Mass/Vol] 7.5 g/dL 6.4-8.2 [facility] White blood cell (WBC) count Ordered By: Sergey Carreon on 08-11-2024 WBC (Bld) [#/Vol] 10.6 10*3/uL 4.4-11.0 [facility] Basic Metabolic Profile (BMP )on 07-31-2024 BUN/CRE 17.5 RATIO Normal 10-20 [facility] Comment on above: Performed By: #### L 100.0100, L500.2500, L501.5200 ####[facility] [address] [place], [address] CA,Total 9.0 mg/dL Normal 8.5-10.1 [facility] Comment on above: Performed By: #### L 100.0100, L500.2500, L501.5200 ####[facility] [address] [place], [address] Chloride [Moles/Vol] 107 mmol/L Normal 98-107 [facility] Comment on above: Performed By: #### L 100.0100, L500.2500, L501.5200 ####[facility] [address] [place], [address] CO2 [Moles/Vol] 27.0 mmol/L Normal 21.0-32.0 [facility] Comment on above: Performed By: #### L 100.0100, L500.2500, L501.5200 ####[facility] [address] [place], [address] Creatinine [Mass/Vol] 1.26 mg/dL Normal 0.70-1.30 [facility] Comment on above: Result Comment: The validity of the calculated GFR GFRAA in patients over70 years has not been determined. Clinical correlation isessential. Performed By: #### L 100.0100, L500.2500, L501.5200 ####[facility] [address] [place], [address] EST GFR - AA 71 mL/min Normal >60 [facility] Comment on above: Result Comment: Afri can Croatian GFR Calc Performed By: #### L 100.0100, L500.2500, L501.5200 ####[facility] [address] [place], [address] GAP 7 Normal 5-15 [facility] Comment on above: Performed By: #### L 100.0100, L500.2500, L501.5200 ####[facility] [address] [place], [address] GFR/1.73 sq M.predicted among non-blacks MDRD (S/P/Bld) [Vol rate/Area] 59 mL/min/{1.73_m2} Low >60 [facility] Comment on above: Result Comment: Non- GFR Calc Performed By: #### L 100.0100, L500.2500, L501.5200 ####[facility] [address] [place], [address] Glucose [Mass/Vol] 119 mg/dL High 74-106 [facility] Comment on above: Result Comment: Fast ing Glucose result from 100 to 125 mg/dLsuggests IMPAIRED HOMEOSTASIS per A.D.A. criteria. Performed By: #### L 100.0100, L500.2500, L501.5200 ####[facility] [address] [place], [address] Potassium [Moles/Vol] 3.6 mmol/L Normal 3.5-5.1 [facility] Comment on above: Performed By: #### L 100.0100, L500.2500, L501.5200 ####[facility] [address] [place], [address] Sodium [Moles/Vol] 141 mmol/L Normal 136-145 [facility] Comment on above: Performed By: #### L 100.0100, L500.2500, L501.5200 ####[facility] [address] [place], [address] Urea nitrogen [Mass/Vol] 22 mg/dL High 7-18 [facility] Comment on above: Performed By: #### L 100.0100, L500.2500, L501.5200 ####[facility] [address] [place], [address] CBC W/Diff, Automatedon 07-18 Absolute Lymph 1.13 X10 3/uL Normal 0.83-4.51 [facility] Comment on above: Performed By: #### L 100.0100, L500.2500, L501.5200 ####[facility] [address] [place], [address] Absolute Neut 6.1 X10 3/uL Normal 2.0-7.7 [facility] Comment on above: Performed By: #### L 100.0100, L500.2500, L501.5200 ####[facility] [address] [place], [address] Basophils/100 WBC (Bld) 0.4 % Normal 0-1 [facility] Comment on above: Performed By: #### L 100.0100, L500.2500, L501.5200 ####[facility] [address] [place], [address] Eosinophils/100 WBC (Bld) 2.6 % Normal 0-5 [facility] Comment on above: Performed By: #### L 100.0100, L500.2500, L501.5200 ####[facility] [address] [place], [address] Erythrocyte distribution width (RBC) [Ratio] 14.1 % Normal 11.6-14.6 [facility] Comment on above: Performed By: #### L 100.0100, L500.2500, L501.5200 ####[facility] [address] [place], [address] Hematocrit (Bld) [Volume fraction] 38.0 % Low 40-54 [facility] Comment on above: Performed By: #### L 100.0100, L500.2500, L501.5200 ####[facility] [address] [place], [address] Hemoglobin (Bld) [Mass/Vol] 11.8 g/dL Low 13.0-16.5 [facility] Comment on above: Performed By: #### L 100.0100, L500.2500, L501.5200 ####[facility] [address] [place], [address] IG% 0.200 Normal 0.0-0.9 [facility] Comment on above: Result Comment: IG% - Immature Granulocytes (promyelocytes, myelocytes andmetamyelocytes) > 1% indicates that a LEFT SHIFT is Present. Performed By: #### L 100.0100, L500.2500, L501.5200 ####[facility] [address] [place], [address] Lymphocytes/100 WBC (Bld) 13.3 % Low 19-41 [facility] Comment on above: Performed By: #### L 100.0100, L500.2500, L501.5200 ####[facility] [address] [place], [address] MCH (RBC) [Entitic mass] 26.3 pg Low 27.0-32.0 [facility] Comment on above: Performed By: #### L 100.0100, L500.2500, L501.5200 ####[facility] [address] [place], [address] MCHC (RBC) [Mass/Vol] 31.1 g/dL Low 32-36 [facility] Comment on above: Performed By: #### L 100.0100, L500.2500, L501.5200 ####[facility] [address] [place], [address] MCV (RBC) [Entitic vol] 84.8 fL Normal 80-94 [facility] Comment on above: Performed By: #### L 100.0100, L500.2500, L501.5200 ####[facility] [address] [place], [address] Monocytes/100 WBC (Bld) 11.5 % High 0-10 [facility] Comment on above: Performed By: #### L 100.0100, L500.2500, L501.5200 ####[facility] [address] [place], [address] Neutrophils/100 WBC (Bld) 72.0 % High 47-70 [facility] Comment on above: Performed By: #### L 100.0100, L500.2500, L501.5200 ####[facility] [address] [place], [address] Nucleated RBC (Bld) [#/Vol] 0 10*3/uL Normal 0-5 [facility] Comment on above: Performed By: #### L 100.0100, L500.2500, L501.5200 ####[facility] [address] [place], [address] Platelet mean volume (Bld) [Entitic vol] 11.4 fL Normal 6.2-12.0 [facility] Comment on above: Performed By: #### L 100.0100, L500.2500, L501.5200 ####[facility] [address] [place], [address] Platelets (Bld) [#/Vol] 282 10*3/uL Normal 150-450 [facility] Comment on above: Performed By: #### L 100.0100, L500.2500, L501.5200 ####[facility] [address] [place], [address] RBC (Bld) [#/Vol] 4.48 10*6/uL Low 4.6-6.2 [facility] Comment on above: Performed By: #### L 100.0100, L500.2500, L501.5200 ####[facility] [address] [place], [address] RDW SD 43.7 fl Normal 35.1-43.9 [facility] Comment on above: Performed By: #### L 100.0100, L500.2500, L501.5200 ####[facility] [address] [place], [address] WBC (Bld) [#/Vol] 8.5 10*3/uL Normal 4.4-11.0 [facility] Comment on above: Performed By: #### L 100.0100, L500.2500, L501.5200 ####[facility] [address] [place], [address] Ema 07-31-2024 YAKOV Telephone (FAMPWS) ----- ESHAFAISAL PYLE ([id number]) 1945 M Date Time Provider Department 07/31/24 JULIANNA HOOD During your visit today, we recorded the [...] - Blood-Glucose Meter,Continuous (FREESTYLE MARIELLE 3 READER) [facility] [place] Use to check blood sugar at least four (4) times daily. Uses insulin - Blood-Glucose Sensor (FREESTYLE MARIELLE 3 PLUS SENSOR) sayra Apply new sensor every fifteen (15) days to upper arm. - colestipol (COLESTID) 1 gram tablet Take 1 tablet by mouth once daily. - losartan-hydroCHLOROthiaz hardeep (HYZAAR) 100-12.5 mg per tablet Take 1 [...] a day before meals. Getting through [facility] - dilTIAZem CD (CARDIZEM CD, CARTIA XT) [...] mouth every 12 hours. Prescribed by outside embroiderer hand - insulin glargine (BASAGLAR KWIKPEN U-100 INSULIN) [...] [I48.0] 02/15/2021 (more content not included)... Normal [facility] Magnesiumon 07-31-2024 Magnesium [Mass/Vol] 2.9 mg/dL High 1.6-2.6 [facility] Comment on above: Performed By: #### L 100.0100, L500.2500, L501.5200 ####[facility] [address] [place], [address] Pulmonary Visit Reporton Pulmonary Visit Report Normal [facility] CBC W/Diff, Automatedon 07-18 Absolute Lymph 1.39 X10 3/uL Normal 0.83-4.51 [facility] Comment on above: Performed By: #### L 100.0100, L503.0105, L503.6030, L503.6550, L506.0250 ####[facility] [address] [place], [address] Absolute Neut 7.2 X10 3/uL Normal 2.0-7.7 [facility] Comment on above: Performed By: #### L 100.0100, L503.0105, L503.6030, L503.6550, L506.0250 ####[facility] [address] [place], [address] Basophils/100 WBC (Bld) 0.4 % Normal 0-1 [facility] Comment on above: Performed By: #### L 100.0100, L503.0105, L503.6030, L503.6550, L506.0250 ####[facility] [address] [place], [address] Eosinophils/100 WBC (Bld) 3.0 % Normal 0-5 [facility] Comment on above: Performed By: #### L 100.0100, L503.0105, L503.6030, L503.6550, L506.0250 ####[facility] [address] [place], [address] Erythrocyte distribution width (RBC) [Ratio] 14.1 % Normal 11.6-14.6 [facility] Comment on above: Performed By: #### L 100.0100, L503.0105, L503.6030, L503.6550, L506.0250 ####[facility] [address] [place], [address] Hematocrit (Bld) [Volume fraction] 38.9 % Low 40-54 [facility] Comment on above: Performed By: #### L 100.0100, L503.0105, L503.6030, L503.6550, L506.0250 ####[facility] [address] [place], [address] Hemoglobin (Bld) [Mass/Vol] 12.1 g/dL Low 13.0-16.5 [facility] Comment on above: Performed By: #### L 100.0100, L503.0105, L503.6030, L503.6550, L506.0250 ####[facility] [address] [place], [address] IG% 0.400 Normal 0.0-0.9 [facility] Comment on above: Result Comment: IG% - Immature Granulocytes (promyelocytes, myelocytes andmetamyelocytes) > 1% indicates that a LEFT SHIFT is Present. Performed By: #### L 100.0100, L503.0105, L503.6030, L503.6550, L506.0250 ####[facility] [address] [place], [address] Lymphocytes/100 WBC (Bld) 13.8 % Low 19-41 [facility] Comment on above: Performed By: #### L 100.0100, L503.0105, L503.6030, L503.6550, L506.0250 ####[facility] [address] [place], [address] MCH (RBC) [Entitic mass] 26.1 pg Low 27.0-32.0 [facility] Comment on above: Performed By: #### L 100.0100, L503.0105, L503.6030, L503.6550, L506.0250 ####[facility] [address] [place], [address] MCHC (RBC) [Mass/Vol] 31.1 g/dL Low 32-36 [facility] Comment on above: Performed By: #### L 100.0100, L503.0105, L503.6030, L503.6550, L506.0250 ####[facility] [address] [place], [address] MCV (RBC) [Entitic vol] 84.0 fL Normal 80-94 [facility] Comment on above: Performed By: #### L 100.0100, L503.0105, L503.6030, L503.6550, L506.0250 ####[facility] [address] [place], [address] Monocytes/100 WBC (Bld) 10.6 % High 0-10 [facility] Comment on above: Performed By: #### L 100.0100, L503.0105, L503.6030, L503.6550, L506.0250 ####[facility] [address] [place], [address] Neutrophils/100 WBC (Bld) 71.8 % High 47-70 [facility] Comment on above: Performed By: #### L 100.0100, L503.0105, L503.6030, L503.6550, L506.0250 ####[facility] [address] [place], [address] Nucleated RBC (Bld) [#/Vol] 0 10*3/uL Normal 0-5 [facility] Comment on above: Performed By: #### L 100.0100, L503.0105, L503.6030, L503.6550, L506.0250 ####[facility] [address] [place], [address] Platelet mean volume (Bld) [Entitic vol] 10.6 fL Normal 6.2-12.0 [facility] Comment on above: Performed By: #### L 100.0100, L503.0105, L503.6030, L503.6550, L506.0250 ####[facility] [address] [place], [address] Platelets (Bld) [#/Vol] 321 10*3/uL Normal 150-450 [facility] Comment on above: Performed By: #### L 100.0100, L503.0105, L503.6030, L503.6550, L506.0250 ####[facility] [address] [place], [address] RBC (Bld) [#/Vol] 4.63 10*6/uL Normal 4.6-6.2 [facility] Comment on above: Performed By: #### L 100.0100, L503.0105, L503.6030, L503.6550, L506.0250 ####[facility] [address] [place], [address] RDW SD 42.7 fl Normal 35.1-43.9 [facility] Comment on above: Performed By: #### L 100.0100, L503.0105, L503.6030, L503.6550, L506.0250 ####[facility] [address] [place], [address] WBC (Bld) [#/Vol] 10.0 10*3/uL Normal 4.4-11.0 [facility] Comment on above: Performed By: #### L 100.0100, L503.0105, L503.6030, L503.6550, L506.0250 ####[facility] [address] [place], [address] Ferritinon 07-28-2024 Ferritin [Mass/Vol] 27 ng/mL Normal 26-388 [facility] Comment on above: Order Comment: N Performed By: #### L 100.0100, L503.0105, L503.6030, L503.6550, L506.0250 ####[facility] [address] [place], [address] Folates, (Folic Acid)on 07-18 FOLATES 14.80 ng/mL Normal 3.1-55.4 [facility] Comment on above: Order Comment: N Performed By: #### L 100.0100, L503.0105, L503.6030, L503.6550, L506.0250 ####[facility] [address] [place], [address] Iron+Iron Binding Capacityon 07-28-2024 Iron [Mass/Vol] 50 ug/dL Low 65-175 [facility] Comment on above: Order Comment: N Performed By: #### L 100.0100, L503.0105, L503.6030, L503.6550, L506.0250 ####[facility] [address] [place], [address] IRON SATURATION 12.6 Low 15.0-55.0 [facility] Comment on above: Order Comment: N Performed By: #### L 100.0100, L503.0105, L503.6030, L503.6550, L506.0250 ####[facility] [address] [place], [address] TIBC 397 ug/dL Normal 250-450 [facility] Comment on above: Order Comment: N Performed By: #### L 100.0100, L503.0105, L503.6030, L503.6550, L506.0250 ####[facility] [address] [place], [address] Vitamin B12on 07-28-2024 Cobalamin (Vitamin B12) [Mass/Vol] 310 pg/mL Normal 211-911 [facility] Comment on above: Performed By: #### L 100.0100, L503.0105, L503.6030, L503.6550, L506.0250 ####[facility] [address] [place], [address] Basic Metabolic Profile (BMP )on 07-25-2024 BUN/CRE 34.6 RATIO High 10-20 [facility] Comment on above: Performed By: #### L 100.0100, L500.2500 ####[facility] [address] [place], [address] CA,Total 8.9 mg/dL Normal 8.5-10.1 [facility] Comment on above: Performed By: #### L 100.0100, L500.2500 ####[facility] [address] [place], [address] Chloride [Moles/Vol] 101 mmol/L Normal 98-107 [facility] Comment on above: Performed By: #### L 100.0100, L500.2500 ####[facility] [address] [place], [address] CO2 [Moles/Vol] 30.0 mmol/L Normal 21.0-32.0 [facility] Comment on above: Performed By: #### L 100.0100, L500.2500 ####[facility] [address] [place], [address] Creatinine [Mass/Vol] 1.07 mg/dL Normal 0.70-1.30 [facility] Comment on above: Result Comment: The validity of the calculated GFR GFRAA in patients over70 years has not been determined. Clinical correlation isessential. Performed By: #### L 100.0100, L500.2500 ####[facility] [address] [place], [address] ECRCL 79.30 ml/min Normal [facility] Comment on above: Performed By: #### L 100.0100, L500.2500 ####[facility] [address] [place], [address] EST GFR - AA 86 mL/min Normal >60 [facility] Comment on above: Result Comment: Afri can Croatian GFR Calc Performed By: #### L 100.0100, L500.2500 ####[facility] [address] [place], [address] GAP 8 Normal 5-15 [facility] Comment on above: Performed By: #### L 100.0100, L500.2500 ####[facility] [address] [place], [address] GFR/1.73 sq M.predicted among non-blacks MDRD (S/P/Bld) [Vol rate/Area] 71 mL/min/{1.73_m2} Normal >60 [facility] Comment on above: Result Comment: Non- GFR Calc Performed By: #### L 100.0100, L500.2500 ####[facility] [address] [place], [address] Glucose [Mass/Vol] 114 mg/dL High 74-106 [facility] Comment on above: Result Comment: Fast ing Glucose result from 100 to 125 mg/dLsuggests IMPAIRED HOMEOSTASIS per A.D.A. criteria. Performed By: #### L 100.0100, L500.2500 ####[facility] [address] [place], [address] Potassium [Moles/Vol] 3.2 mmol/L Low 3.5-5.1 [facility] Comment on above: Performed By: #### L 100.0100, L500.2500 ####[facility] [address] [place], [address] Sodium [Moles/Vol] 138 mmol/L Normal 136-145 [facility] Comment on above: Performed By: #### L 100.0100, L500.2500 ####[facility] [address] [place], [address] Urea nitrogen [Mass/Vol] 37 mg/dL High 7-18 [facility] Comment on above: Performed By: #### L 100.0100, L500.2500 ####[facility] [address] [place], [address] Bedside Glucoseon 07-25-2024 FINGERSTICK GLU 277 mg/dL High 74-106 [facility] Comment on above: Result Comment: URSULA CHAMBERS OF PATIENT CARE PER NURSING PROTOCOL Performed By: #### L 501.080 ####[facility] [address] [place], [address] CBC W/Diff, Automatedon 11-0 Absolute Lymph 2.18 X10 3/uL Normal 0.83-4.51 [facility] Comment on above: Performed By: #### L 100.0100, L500.2500 ####[facility] [address] [place], [address] Absolute Neut 9.3 X10 3/uL High 2.0-7.7 [facility] Comment on above: Performed By: #### L 100.0100, L500.2500 ####[facility] [address] [place], [address] Basophils/100 WBC (Bld) 0.4 % Normal 0-1 [facility] Comment on above: Performed By: #### L 100.0100, L500.2500 ####[facility] [address] [place], [address] Eosinophils/100 WBC (Bld) 2.4 % Normal 0-5 [facility] Comment on above: Performed By: #### L 100.0100, L500.2500 ####[facility] [address] [place], [address] Erythrocyte distribution width (RBC) [Ratio] 14.1 % Normal 11.6-14.6 [facility] Comment on above: Performed By: #### L 100.0100, L500.2500 ####[facility] [address] [place], [address] Hematocrit (Bld) [Volume fraction] 38.3 % Low 40-54 [facility] Comment on above: Performed By: #### L 100.0100, L500.2500 ####[facility] [address] [place], [address] Hemoglobin (Bld) [Mass/Vol] 12.3 g/dL Low 13.0-16.5 [facility] Comment on above: Performed By: #### L 100.0100, L500.2500 ####[facility] [address] [place], [address] IG% 0.800 Normal 0.0-0.9 [facility] Comment on above: Result Comment: IG% - Immature Granulocytes (promyelocytes, myelocytes andmetamyelocytes) > 1% indicates that a LEFT SHIFT is Present. Performed By: #### L 100.0100, L500.2500 ####[facility] [address] [place], [address] Lymphocytes/100 WBC (Bld) 16.4 % Low 19-41 [facility] Comment on above: Performed By: #### L 100.0100, L500.2500 ####[facility] [address] [place], [address] MCH (RBC) [Entitic mass] 26.6 pg Low 27.0-32.0 [facility] Comment on above: Performed By: #### L 100.0100, L500.2500 ####[facility] [address] [place], [address] MCHC (RBC) [Mass/Vol] 32.1 g/dL Normal 32-36 [facility] Comment on above: Performed By: #### L 100.0100, L500.2500 ####[facility] [address] [place], [address] MCV (RBC) [Entitic vol] 82.9 fL Normal 80-94 [facility] Comment on above: Performed By: #### L 100.0100, L500.2500 ####[facility] [address] [place], [address] Monocytes/100 WBC (Bld) 10.5 % High 0-10 [facility] Comment on above: Performed By: #### L 100.0100, L500.2500 ####[facility] [address] [place], [address] Neutrophils/100 WBC (Bld) 69.5 % Normal 47-70 [facility] Comment on above: Performed By: #### L 100.0100, L500.2500 ####[facility] [address] [place], [address] Nucleated RBC (Bld) [#/Vol] 0 10*3/uL Normal 0-5 [facility] Comment on above: Performed By: #### L 100.0100, L500.2500 ####[facility] [address] [place], [address] Platelet mean volume (Bld) [Entitic vol] 10.9 fL Normal 6.2-12.0 [facility] Comment on above: Performed By: #### L 100.0100, L500.2500 ####[facility] [address] [place], [address] Platelets (Bld) [#/Vol] 360 10*3/uL Normal 150-450 [facility] Comment on above: Performed By: #### L 100.0100, L500.2500 ####[facility] [address] [place], [address] RBC (Bld) [#/Vol] 4.62 10*6/uL Normal 4.6-6.2 [facility] Comment on above: Performed By: #### L 100.0100, L500.2500 ####[facility] [address] [place], [address] RDW SD 42.3 fl Normal 35.1-43.9 [facility] Comment on above: Performed By: #### L 100.0100, L500.2500 ####[facility] [address] [place], [address] WBC (Bld) [#/Vol] 13.3 10*3/uL High 4.4-11.0 [facility] Comment on above: Performed By: #### L 100.0100, L500.2500 ####[facility] [address] [place], [address] Basic Metabolic Profile (BMP )on 07-24-2024 BUN/CRE 41.7 RATIO High 10-20 [facility] Comment on above: Performed By: #### L 100.0100, L500.2500 ####[facility] [address] [place], [address] CA,Total 8.7 mg/dL Normal 8.5-10.1 [facility] Comment on above: Performed By: #### L 100.0100, L500.2500 ####[facility] [address] [place], [address] Chloride [Moles/Vol] 104 mmol/L Normal 98-107 [facility] Comment on above: Performed By: #### L 100.0100, L500.2500 ####[facility] [address] [place], [address] CO2 [Moles/Vol] 28.0 mmol/L Normal 21.0-32.0 [facility] Comment on above: Performed By: #### L 100.0100, L500.2500 ####[facility] [address] [place], [address] Creatinine [Mass/Vol] 0.91 mg/dL Normal 0.70-1.30 [facility] Comment on above: Result Comment: The validity of the calculated GFR GFRAA in patients over70 years has not been determined. Clinical correlation isessential. Performed By: #### L 100.0100, L500.2500 ####[facility] [address] [place], [address] ECRCL 93.17 ml/min Normal [facility] Comment on above: Performed By: #### L 100.0100, L500.2500 ####[facility] [address] [place], [address] EST GFR - AA 103 mL/min Normal >60 [facility] Comment on above: Result Comment: Afri can Croatian GFR Calc Performed By: #### L 100.0100, L500.2500 ####[facility] [address] [place], [address] GAP 7 Normal 5-15 [facility] Comment on above: Performed By: #### L 100.0100, L500.2500 ####[facility] [address] [place], [address] GFR/1.73 sq M.predicted among non-blacks MDRD (S/P/Bld) [Vol rate/Area] 85 mL/min/{1.73_m2} Normal >60 [facility] Comment on above: Result Comment: Non- GFR Calc Performed By: #### L 100.0100, L500.2500 ####[facility] [address] [place], [address] Glucose [Mass/Vol] 221 mg/dL High 74-106 [facility] Comment on above: Result Comment: Gluc ose result greater than or equal to 200 mg/dLsuggests DIABETES MELLITUS per A.D.A. criteria. Performed By: #### L 100.0100, L500.2500 ####[facility] [address] [place], [address] Potassium [Moles/Vol] 4.0 mmol/L Normal 3.5-5.1 [facility] Comment on above: Performed By: #### L 100.0100, L500.2500 ####[facility] [address] [place], [address] Sodium [Moles/Vol] 139 mmol/L Normal 136-145 [facility] Comment on above: Performed By: #### L 100.0100, L500.2500 ####[facility] [address] [place], [address] Urea nitrogen [Mass/Vol] 38 mg/dL High 7-18 [facility] Comment on above: Performed By: #### L 100.0100, L500.2500 ####[facility] [address] [place], [address] Bedside Glucoseon 07-24-2024 FINGERSTICK GLU 108 mg/dL High 74-106 [facility] Comment on above: Result Comment: URSULA GEMENT OF PATIENT CARE PER NURSING PROTOCOL Performed By: #### L 501.080 ####[facility] [address] [place], [address] FINGERSTICK GLU 192 mg/dL High 74-106 [facility] Comment on above: Result Comment: URSULA GEMENT OF PATIENT CARE PER NURSING PROTOCOL Performed By: #### L 501.080 ####[facility] [address] [place], [address] FINGERSTICK GLU 227 mg/dL High 74-106 [facility] Comment on above: Result Comment: URSULA GEMENT OF PATIENT CARE PER NURSING PROTOCOL Performed By: #### L 501.080 ####[facility] [address] [place], [address] FINGERSTICK GLU 227 mg/dL High 74-106 [facility] Comment on above: Result Comment: URSULA CHAMBERS OF PATIENT CARE PER NURSING PROTOCOL Performed By: #### L 501.080 ####[facility] [address] [place], [address] CBC W/Diff, Automatedon 11-0 7-4 Absolute Lymph 2.00 X10 3/uL Normal 0.83-4.51 [facility] Comment on above: Performed By: #### L 100.0100, L500.2500 ####[facility] [address] [place], [address] Absolute Neut 8.9 X10 3/uL High 2.0-7.7 [facility] Comment on above: Performed By: #### L 100.0100, L500.2500 ####[facility] [address] [place], [address] Basophils/100 WBC (Bld) 0.3 % Normal 0-1 [facility] Comment on above: Performed By: #### L 100.0100, L500.2500 ####[facility] [address] [place], [address] Eosinophils/100 WBC (Bld) 1.0 % Normal 0-5 [facility] Comment on above: Performed By: #### L 100.0100, L500.2500 ####[facility] [address] [place], [address] Erythrocyte distribution width (RBC) [Ratio] 14.1 % Normal 11.6-14.6 [facility] Comment on above: Performed By: #### L 100.0100, L500.2500 ####[facility] [address] [place], [address] Hematocrit (Bld) [Volume fraction] 37.0 % Low 40-54 [facility] Comment on above: Performed By: #### L 100.0100, L500.2500 ####[facility] [address] [place], [address] Hemoglobin (Bld) [Mass/Vol] 11.5 g/dL Low 13.0-16.5 [facility] Comment on above: Performed By: #### L 100.0100, L500.2500 ####[facility] [address] [place], [address] IG% 0.600 Normal 0.0-0.9 [facility] Comment on above: Result Comment: IG% - Immature Granulocytes (promyelocytes, myelocytes andmetamyelocytes) > 1% indicates that a LEFT SHIFT is Present. Performed By: #### L 100.0100, L500.2500 ####[facility] [address] [place], [address] Lymphocytes/100 WBC (Bld) 16.0 % Low 19-41 [facility] Comment on above: Performed By: #### L 100.0100, L500.2500 ####[facility] [address] [place], [address] MCH (RBC) [Entitic mass] 26.6 pg Low 27.0-32.0 [facility] Comment on above: Performed By: #### L 100.0100, L500.2500 ####[facility] [address] [place], [address] MCHC (RBC) [Mass/Vol] 31.1 g/dL Low 32-36 [facility] Comment on above: Performed By: #### L 100.0100, L500.2500 ####[facility] [address] [place], [address] MCV (RBC) [Entitic vol] 85.6 fL Normal 80-94 [facility] Comment on above: Performed By: #### L 100.0100, L500.2500 ####[facility] [address] [place], [address] Monocytes/100 WBC (Bld) 11.4 % High 0-10 [facility] Comment on above: Performed By: #### L 100.0100, L500.2500 ####[facility] [address] [place], [address] Neutrophils/100 WBC (Bld) 70.7 % High 47-70 [facility] Comment on above: Performed By: #### L 100.0100, L500.2500 ####[facility] [address] [place], [address] Nucleated RBC (Bld) [#/Vol] 0 10*3/uL Normal 0-5 [facility] Comment on above: Performed By: #### L 100.0100, L500.2500 ####[facility] [address] [place], [address] Platelet mean volume (Bld) [Entitic vol] 11.5 fL Normal 6.2-12.0 [facility] Comment on above: Performed By: #### L 100.0100, L500.2500 ####[facility] [address] [place], [address] Platelets (Bld) [#/Vol] 302 10*3/uL Normal 150-450 [facility] Comment on above: Performed By: #### L 100.0100, L500.2500 ####[facility] [address] [place], [address] RBC (Bld) [#/Vol] 4.32 10*6/uL Low 4.6-6.2 [facility] Comment on above: Performed By: #### L 100.0100, L500.2500 ####[facility] [address] [place], [address] RDW SD 43.9 fl Normal 35.1-43.9 [facility] Comment on above: Performed By: #### L 100.0100, L500.2500 ####[facility] [address] [place], [address] WBC (Bld) [#/Vol] 12.5 10*3/uL High 4.4-11.0 [facility] Comment on above: Performed By: #### L 100.0100, L500.2500 ####[facility] [address] [place], [address] 12 Lead EKGon 07-23-2024 12 Lead EKG Normal [facility] Basic Metabolic Profile (BMP )on 07-23-2024 BUN/CRE 28.7 RATIO High 10-20 [facility] Comment on above: Performed By: #### L 100.0100, L500.2500, L500.4100, L501.5200 ####[facility] [address] [place], [address] CA,Total 9.0 mg/dL Normal 8.5-10.1 [facility] Comment on above: Performed By: #### L 100.0100, L500.2500, L500.4100, L501.5200 ####[facility] [address] [place], [address] Chloride [Moles/Vol] 103 mmol/L Normal 98-107 [facility] Comment on above: Performed By: #### L 100.0100, L500.2500, L500.4100, L501.5200 ####[facility] [address] [place], [address] CO2 [Moles/Vol] 27.0 mmol/L Normal 21.0-32.0 [facility] Comment on above: Performed By: #### L 100.0100, L500.2500, L500.4100, L501.5200 ####[facility] [address] [place], [address] Creatinine [Mass/Vol] 1.08 mg/dL Normal 0.70-1.30 [facility] Comment on above: Result Comment: The validity of the calculated GFR GFRAA in patients over70 years has not been determined. Clinical correlation isessential. Performed By: #### L 100.0100, L500.2500, L500.4100, L501.5200 ####[facility] [address] [place], [address] ECRCL 78.41 ml/min Normal [facility] Comment on above: Performed By: #### L 100.0100, L500.2500, L500.4100, L501.5200 ####[facility] [address] [place], [address] EST GFR - AA 85 mL/min Normal >60 [facility] Comment on above: Result Comment: Afri can Croatian GFR Calc Performed By: #### L 100.0100, L500.2500, L500.4100, L501.5200 ####[facility] [address] [place], [address] GAP 7 Normal 5-15 [facility] Comment on above: Performed By: #### L 100.0100, L500.2500, L500.4100, L501.5200 ####[facility] [address] [place], [address] GFR/1.73 sq M.predicted among non-blacks MDRD (S/P/Bld) [Vol rate/Area] 70 mL/min/{1.73_m2} Normal >60 [facility] Comment on above: Result Comment: Non- GFR Calc Performed By: #### L 100.0100, L500.2500, L500.4100, L501.5200 ####[facility] [address] [place], [address] Glucose [Mass/Vol] 330 mg/dL High 74-106 [facility] Comment on above: Result Comment: Gluc ose result greater than or equal to 200 mg/dLsuggests DIABETES MELLITUS per A.D.A. criteria. Performed By: #### L 100.0100, L500.2500, L500.4100, L501.5200 ####[facility] [address] [place], [address] Potassium [Moles/Vol] 3.9 mmol/L Normal 3.5-5.1 [facility] Comment on above: Performed By: #### L 100.0100, L500.2500, L500.4100, L501.5200 ####[facility] [address] [place], [address] Sodium [Moles/Vol] 137 mmol/L Normal 136-145 [facility] Comment on above: Performed By: #### L 100.0100, L500.2500, L500.4100, L501.5200 ####[facility] [address] [place], [address] Urea nitrogen [Mass/Vol] 31 mg/dL High 7-18 [facility] Comment on above: Performed By: #### L 100.0100, L500.2500, L500.4100, L501.5200 ####[facility] [address] [place], [address] Bedside Glucoseon 07-23-2024 FINGERSTICK GLU 352 mg/dL High 74-106 [facility] Comment on above: Result Comment: URSULA GEMENT OF PATIENT CARE PER NURSING PROTOCOL Performed By: #### L 501.080 ####[facility] [address] [place], [address] FINGERSTICK GLU 409 mg/dL High 74-106 [facility] Comment on above: Result Comment: URSULA GEMENT OF PATIENT CARE PER NURSING PROTOCOL Performed By: #### L 501.080 ####[facility] [address] [place], [address] FINGERSTICK GLU 350 mg/dL High 74-106 [facility] Comment on above: Result Comment: URSULA GEMENT OF PATIENT CARE PER NURSING PROTOCOL Performed By: #### L 501.080 ####[facility] [address] [place], [address] FINGERSTICK GLU 301 mg/dL High 74-106 [facility] Comment on above: Result Comment: URSULA GEMENT OF PATIENT CARE PER NURSING PROTOCOL Performed By: #### L 501.080 ####[facility] [address] [place], [address] CBC W/Diff, Automatedon 11-0 6-2023 Absolute Lymph 0.66 X10 3/uL Low 0.83-4.51 [facility] Comment on above: Performed By: #### L 100.0100, L500.2500, L500.4100, L501.5200 ####[facility] [address] [place], [address] Absolute Neut 10.7 X10 3/uL High 2.0-7.7 [facility] Comment on above: Performed By: #### L 100.0100, L500.2500, L500.4100, L501.5200 ####[facility] [address] [place], [address] Basophils/100 WBC (Bld) 0.1 % Normal 0-1 [facility] Comment on above: Performed By: #### L 100.0100, L500.2500, L500.4100, L501.5200 ####[facility] [address] [place], [address] Eosinophils/100 WBC (Bld) 0.0 % Normal 0-5 [facility] Comment on above: Performed By: #### L 100.0100, L500.2500, L500.4100, L501.5200 ####[facility] [address] [place], [address] Erythrocyte distribution width (RBC) [Ratio] 14.0 % Normal 11.6-14.6 [facility] Comment on above: Performed By: #### L 100.0100, L500.2500, L500.4100, L501.5200 ####[facility] [address] [place], [address] Hematocrit (Bld) [Volume fraction] 37.3 % Low 40-54 [facility] Comment on above: Performed By: #### L 100.0100, L500.2500, L500.4100, L501.5200 ####[facility] [address] [place], [address] Hemoglobin (Bld) [Mass/Vol] 11.7 g/dL Low 13.0-16.5 [facility] Comment on above: Performed By: #### L 100.0100, L500.2500, L500.4100, L501.5200 ####[facility] [address] [place], [address] IG% 0.500 Normal 0.0-0.9 [facility] Comment on above: Result Comment: IG% - Immature Granulocytes (promyelocytes, myelocytes andmetamyelocytes) > 1% indicates that a LEFT SHIFT is Present. Performed By: #### L 100.0100, L500.2500, L500.4100, L501.5200 ####[facility] [address] [place], [address] Lymphocytes/100 WBC (Bld) 5.6 % Low 19-41 [facility] Comment on above: Performed By: #### L 100.0100, L500.2500, L500.4100, L501.5200 ####[facility] [address] [place], [address] MCH (RBC) [Entitic mass] 26.4 pg Low 27.0-32.0 [facility] Comment on above: Performed By: #### L 100.0100, L500.2500, L500.4100, L501.5200 ####[facility] [address] [place], [address] MCHC (RBC) [Mass/Vol] 31.4 g/dL Low 32-36 [facility] Comment on above: Performed By: #### L 100.0100, L500.2500, L500.4100, L501.5200 ####[facility] [address] [place], [address] MCV (RBC) [Entitic vol] 84.0 fL Normal 80-94 [facility] Comment on above: Performed By: #### L 100.0100, L500.2500, L500.4100, L501.5200 ####[facility] [address] [place], [address] Monocytes/100 WBC (Bld) 3.5 % Normal 0-10 [facility] Comment on above: Performed By: #### L 100.0100, L500.2500, L500.4100, L501.5200 ####[facility] [address] [place], [address] Neutrophils/100 WBC (Bld) 90.3 % High 47-70 [facility] Comment on above: Performed By: #### L 100.0100, L500.2500, L500.4100, L501.5200 ####[facility] [address] [place], [address] Nucleated RBC (Bld) [#/Vol] 0 10*3/uL Normal 0-5 [facility] Comment on above: Performed By: #### L 100.0100, L500.2500, L500.4100, L501.5200 ####[facility] [address] [place], [address] Platelet mean volume (Bld) [Entitic vol] 10.6 fL Normal 6.2-12.0 [facility] Comment on above: Performed By: #### L 100.0100, L500.2500, L500.4100, L501.5200 ####[facility] [address] [place], [address] Platelets (Bld) [#/Vol] 339 10*3/uL Normal 150-450 [facility] Comment on above: Performed By: #### L 100.0100, L500.2500, L500.4100, L501.5200 ####[facility] [address] [place], [address] RBC (Bld) [#/Vol] 4.44 10*6/uL Low 4.6-6.2 [facility] Comment on above: Performed By: #### L 100.0100, L500.2500, L500.4100, L501.5200 ####[facility] [address] [place], [address] RDW SD 43.2 fl Normal 35.1-43.9 [facility] Comment on above: Performed By: #### L 100.0100, L500.2500, L500.4100, L501.5200 ####[facility] [address] [place], [address] WBC (Bld) [#/Vol] 11.9 10*3/uL High 4.4-11.0 [facility] Comment on above: Performed By: #### L 100.0100, L500.2500, L500.4100, L501.5200 ####[facility] [address] [place], [address] Lipid Profileon 07-23-2024 Cholesterol [Mass/Vol] 114 mg/dL Normal 200 [facility] Comment on above: Result Comment: <200 mg/dL Desirable 200-240 mg/dL Borderline >240 mg/dL High Risk Performed By: #### L 100.0100, L500.2500, L500.4100, L501.5200 ####[facility] [address] [place], [address] Cholesterol in HDL [Mass/Vol] 47 mg/dL Normal [facility] Comment on above: Result Comment: The drugs N-Acetylcysteine and Metamizole may falselydepress this assay. Reference Range HDL <40 mg/dL Low HDL Cholesterol HDL >or= 60 mg/dL High HDL Cholesterol Performed By: #### L 100.0100, L500.2500, L500.4100, L501.5200 ####[facility] [address] [place], [address] Cholesterol in LDL [Mass/Vol] 56 mg/dL Normal 0-130 [facility] Comment on above: Performed By: #### L 100.0100, L500.2500, L500.4100, L501.5200 ####[facility] [address] [place], [address] Cholesterol in VLDL [Mass/Vol] 11 mg/dL Normal 5-40 [facility] Comment on above: Performed By: #### L 100.0100, L500.2500, L500.4100, L501.5200 ####[facility] [address] [place], [address] Triglyceride [Mass/Vol] 57 mg/dL Normal [facility] Comment on above: Result Comment: The drugs N-Acetylcysteine and Metamizole may falselydepress this assay.Serum Triglycerides Reference Interval Normal <150 mg/dL Borderline high 150 - 199 mg/dL High 200 - 499 mg/dL Very High > or = 500 mg/dL Performed By: #### L 100.0100, L500.2500, L500.4100, L501.5200 ####[facility] [address] [place], [address] Magnesiumon 07-23-2024 Magnesium [Mass/Vol] 2.0 mg/dL Normal 1.6-2.6 [facility] Comment on above: Performed By: #### L 100.0100, L500.2500, L500.4100, L501.5200 ####[facility] [address] [place], [address] RESPIRATORY PANEL MOLECULARo n 07-23-2024 RP PANEL Normal [facility] Comment on above: Performed By: #### M 100.638 ####[facility] [address] [place], [address] 12 Lead EKGon 07-22-2024 12 Lead EKG Normal [facility] BNP,B-Type NATRIURETIC PEPTI Suyapa 07-22-2024 Natriuretic peptide B (Bld) [Mass/Vol] 108.4 pg/mL High 0-100 [facility] Comment on above: Performed By: #### L 503.6620 ####[facility] [address] [place], [address] Basic Metabolic Profile (BMP )on 07-22-2024 BUN/CRE 34.7 RATIO High 10-20 [facility] Comment on above: Order Comment: 'TROP ' Serial specimen #1, #2 or #3: 1 Performed By: #### L 100.0100, L500.2500, L501.4020 ####[facility] [address] [place], [address] CA,Total 9.2 mg/dL Normal 8.5-10.1 [facility] Comment on above: Order Comment: 'TROP ' Serial specimen #1, #2 or #3: 1 Performed By: #### L 100.0100, L500.2500, L501.4020 ####[facility] [address] [place], [address] Chloride [Moles/Vol] 107 mmol/L Normal 98-107 [facility] Comment on above: Order Comment: 'TROP ' Serial specimen #1, #2 or #3: 1 Performed By: #### L 100.0100, L500.2500, L501.4020 ####[facility] [address] [place], [address] CO2 [Moles/Vol] 29.0 mmol/L Normal 21.0-32.0 [facility] Comment on above: Order Comment: 'TROP ' Serial specimen #1, #2 or #3: 1 Performed By: #### L 100.0100, L500.2500, L501.4020 ####[facility] [address] [place], [address] Creatinine [Mass/Vol] 0.92 mg/dL Normal 0.70-1.30 [facility] Comment on above: Order Comment: 'TROP ' Serial specimen #1, #2 or #3: 1 Result Comment: The validity of the calculated GFR GFRAA in patients over70 years has not been determined. Clinical correlation isessential. Performed By: #### L 100.0100, L500.2500, L501.4020 ####[facility] [address] [place], [address] EST GFR - AA 102 mL/min Normal >60 [facility] Comment on above: Order Comment: 'TROP ' Serial specimen #1, #2 or #3: 1 Result Comment: Afri can Croatian GFR Calc Performed By: #### L 100.0100, L500.2500, L501.4020 ####[facility] [address] [place], [address] GAP 4 Low 5-15 [facility] Comment on above: Order Comment: 'TROP ' Serial specimen #1, #2 or #3: 1 Performed By: #### L 100.0100, L500.2500, L501.4020 ####[facility] [address] [place], [address] GFR/1.73 sq M.predicted among non-blacks MDRD (S/P/Bld) [Vol rate/Area] 84 mL/min/{1.73_m2} Normal >60 [facility] Comment on above: Order Comment: 'TROP ' Serial specimen #1, #2 or #3: 1 Result Comment: Non- GFR Calc Performed By: #### L 100.0100, L500.2500, L501.4020 ####[facility] [address] [place], [address] Glucose [Mass/Vol] 78 mg/dL Normal 74-106 [facility] Comment on above: Order Comment: 'TROP ' Serial specimen #1, #2 or #3: 1 Performed By: #### L 100.0100, L500.2500, L501.4020 ####[facility] [address] [place], [address] Potassium [Moles/Vol] 3.2 mmol/L Low 3.5-5.1 [facility] Comment on above: Order Comment: 'TROP ' Serial specimen #1, #2 or #3: 1 Performed By: #### L 100.0100, L500.2500, L501.4020 ####[facility] [address] [place], [address] Sodium [Moles/Vol] 139 mmol/L Normal 136-145 [facility] Comment on above: Order Comment: 'TROP ' Serial specimen #1, #2 or #3: 1 Performed By: #### L 100.0100, L500.2500, L501.4020 ####[facility] [address] [place], [address] Urea nitrogen [Mass/Vol] 32 mg/dL High 7-18 [facility] Comment on above: Order Comment: 'TROP ' Serial specimen #1, #2 or #3: 1 Performed By: #### L 100.0100, L500.2500, L501.4020 ####[facility] [address] [place], [address] Bedside Glucoseon 07-22-2024 FINGERSTICK GLU 370 mg/dL High 74-106 [facility] Comment on above: Result Comment: URSULA GEMENT OF PATIENT CARE PER NURSING PROTOCOL Performed By: #### L 501.080 ####[facility] [address] [place], [address] FINGERSTICK GLU 206 mg/dL High 74-106 [facility] Comment on above: Result Comment: URSULA GEMENT OF PATIENT CARE PER NURSING PROTOCOL Performed By: #### L 501.080 ####[facility] [address] [place], [address] CBC W/Diff, Automatedon 11-0 Absolute Lymph 0.98 X10 3/uL Normal 0.83-4.51 [facility] Comment on above: Performed By: #### L 100.0100, L500.2500, L501.4020 ####[facility] [address] [place], [address] Absolute Neut 13.9 X10 3/uL High 2.0-7.7 [facility] Comment on above: Performed By: #### L 100.0100, L500.2500, L501.4020 ####[facility] [address] [place], [address] Basophils/100 WBC (Bld) 0.2 % Normal 0-1 [facility] Comment on above: Performed By: #### L 100.0100, L500.2500, L501.4020 ####[facility] [address] [place], [address] Eosinophils/100 WBC (Bld) 0.9 % Normal 0-5 [facility] Comment on above: Performed By: #### L 100.0100, L500.2500, L501.4020 ####[facility] [address] [place], [address] Erythrocyte distribution width (RBC) [Ratio] 14.1 % Normal 11.6-14.6 [facility] Comment on above: Performed By: #### L 100.0100, L500.2500, L501.4020 ####[facility] [address] [place], [address] Hematocrit (Bld) [Volume fraction] 40.3 % Normal 40-54 [facility] Comment on above: Performed By: #### L 100.0100, L500.2500, L501.4020 ####[facility] [address] [place], [address] Hemoglobin (Bld) [Mass/Vol] 12.6 g/dL Low 13.0-16.5 [facility] Comment on above: Performed By: #### L 100.0100, L500.2500, L501.4020 ####[facility] [address] [place], [address] IG% 0.500 Normal 0.0-0.9 [facility] Comment on above: Result Comment: IG% - Immature Granulocytes (promyelocytes, myelocytes andmetamyelocytes) > 1% indicates that a LEFT SHIFT is Present. Performed By: #### L 100.0100, L500.2500, L501.4020 ####[facility] [address] [place], [address] Lymphocytes/100 WBC (Bld) 6.0 % Low 19-41 [facility] Comment on above: Performed By: #### L 100.0100, L500.2500, L501.4020 ####[facility] [address] [place], [address] MCH (RBC) [Entitic mass] 26.6 pg Low 27.0-32.0 [facility] Comment on above: Performed By: #### L 100.0100, L500.2500, L501.4020 ####[facility] [address] [place], [address] MCHC (RBC) [Mass/Vol] 31.3 g/dL Low 32-36 [facility] Comment on above: Performed By: #### L 100.0100, L500.2500, L501.4020 ####[facility] [address] [place], [address] MCV (RBC) [Entitic vol] 85.2 fL Normal 80-94 [facility] Comment on above: Performed By: #### L 100.0100, L500.2500, L501.4020 ####[facility] [address] [place], [address] Monocytes/100 WBC (Bld) 7.7 % Normal 0-10 [facility] Comment on above: Performed By: #### L 100.0100, L500.2500, L501.4020 ####[facility] [address] [place], [address] Neutrophils/100 WBC (Bld) 84.7 % High 47-70 [facility] Comment on above: Performed By: #### L 100.0100, L500.2500, L501.4020 ####[facility] [address] [place], [address] Nucleated RBC (Bld) [#/Vol] 0 10*3/uL Normal 0-5 [facility] Comment on above: Performed By: #### L 100.0100, L500.2500, L501.4020 ####[facility] [address] [place], [address] Platelet mean volume (Bld) [Entitic vol] 10.9 fL Normal 6.2-12.0 [facility] Comment on above: Performed By: #### L 100.0100, L500.2500, L501.4020 ####[facility] [address] [place], [address] Platelets (Bld) [#/Vol] 350 10*3/uL Normal 150-450 [facility] Comment on above: Performed By: #### L 100.0100, L500.2500, L501.4020 ####[facility] [address] [place], [address] RBC (Bld) [#/Vol] 4.73 10*6/uL Normal 4.6-6.2 [facility] Comment on above: Performed By: #### L 100.0100, L500.2500, L501.4020 ####[facility] [address] [place], [address] RDW SD 43.6 fl Normal 35.1-43.9 [facility] Comment on above: Performed By: #### L 100.0100, L500.2500, L501.4020 ####[facility] [address] [place], [address] WBC (Bld) [#/Vol] 16.4 10*3/uL High 4.4-11.0 [facility] Comment on above: Performed By: #### L 100.0100, L500.2500, L501.4020 ####[facility] [address] [place], [address] Chest 1 View (Portable)on Chest 1 View (Portable) Normal [facility] Echo Complete W/ Contraston 07-22-2024 Echo Complete W/ Contrast Normal [facility] Emergency Department Summary on 07-22-2024 Emergency Department Summary Normal [facility] H AND P Exam - Hospitaliston 07-22-2024 H&P Exam - Hospitalist Normal [facility] L501.4020on 07-22-2024 TROPONIN-I HS 14 pg/mL Normal 3.0-78.0 [facility] Comment on above: Order Comment: 'TROP ' Serial specimen #1, #2 or #3: 1 Result Comment: Plea se Note: New Test Units and Gender Specific Reference Ranges. For more information see Policy Stat Procedure [place] High Sensitivity Troponin (TNIH) and attachments. Performed By: #### L 100.0100, L500.2500, L501.4020 ####[facility] [address] [place], [address] M100.678on 07-22-2024 M100.678 Pending SARS-CoV-2 (COVID 19) Negative INFLUENZA A Negative INFLUENZA B Negative RSV PCR Negative Normal [facility] Comment on above: Performed By: #### M 100.678 ####[facility] [address] [place], [address] Urinalysis, Completeon 07-22 BACTERIA RARE Normal None Seen [facility] Comment on above: Order Comment: CLEAN CATCH Performed By: #### L 400.0001 ####[facility] [address] [place], [address] EPI,SQUAMOUS 0-5 SEEN Normal 0-5 [facility] Comment on above: Order Comment: CLEAN CATCH Performed By: #### L 400.0001 ####[facility] [address] [place], [address] RBC 0-5 SEEN Normal 0-5 [facility] Comment on above: Order Comment: CLEAN CATCH Performed By: #### L 400.0001 ####[facility] [address] [place], [address] WBC 0-5 SEEN Normal 0-5 [facility] Comment on above: Order Comment: CLEAN CATCH Performed By: #### L 400.0001 ####[facility] [address] [place], [address] Mucus Ql (Urine sed) 0 SEEN Normal [facility] Comment on above: Order Comment: CLEAN CATCH Performed By: #### L 400.0001 ####[facility] [address] [place], [address] HBA1C (OUTSIDE)on 05-07-2024 HbA1c (Bld) [Mass fraction] 7.2 % [facility] Basic metabolic 2000 panelon 04-12-2024 Anion gap [Moles/Vol] 14 mmol/L Normal 8-15 [facility] Comment on above: Order Comment: Speci men Type: BLOOD SPECIMEN Ordering Facility: [facility] Address: [address] [place] [address] Performed By: #### 2 4321-2 #### [facility] CLIA [id number] 1 [place] [address] [place] Calcium [Mass/Vol] 9.6 mg/dL Normal 8.5-10.2 [facility] Comment on above: Order Comment: Speci men Type: BLOOD SPECIMEN Ordering Facility: [facility] Address: [address] [place] [address] Performed By: #### 2 4321-2 #### [facility] CLIA [id number] 1 [place] [address] [place] Chloride [Moles/Vol] 97 mmol/L Low 98-107 [facility] Comment on above: Order Comment: Speci men Type: BLOOD SPECIMEN Ordering Facility: [facility] Address: [address] [place] [address] Performed By: #### 2 4321-2 #### [facility] CLIA [id number] 1 [place] [address] [place] CO2 [Moles/Vol] 22 mmol/L Normal 22-30 [facility] Comment on above: Order Comment: Speci men Type: BLOOD SPECIMEN Ordering Facility: [facility] Address: [address] [place] [address] Performed By: #### 2 4321-2 #### [facility] CLIA [id number] 1 [place] [address] [place] Creatinine [Mass/Vol] 1.10 mg/dL Normal 0.73-1.22 [facility] Comment on above: Order Comment: Speci men Type: BLOOD SPECIMEN Ordering Facility: [facility] Address: [address] [place] [address] Performed By: #### 2 4321-2 #### [facility] CLIA [id number] [address] [place] [address] [place] Creatinine and Glomerular filtration rate.predicted panel (S/P/Bld) 68 mL/min/1.73m??? Normal >=60 [facility] Comment on above: Order Comment: Salvatore de la rosa Type: BLOOD SPECIMEN Ordering Facility: [facility] Address: [address] [place] [address] Result Comment: Racquel mated Glomerular Filtration Rate [...] GFR. Performed By: #### 2 4321-2 #### [facility] CLIA [id number] [address] [place] [address] [place] Glucose [Mass/Vol] 199 mg/dL High 74-99 [facility] Comment on above: Order Comment: Salvatore de la rosa Type: BLOOD SPECIMEN Ordering Facility: [facility] Address: [address] [place] [address] Result Comment: The [place] Diabetes Association (ADA) provides guidance for cutoff [...] Standards of Medical Care in Diabetes 2016, [place] [employer]. Diabetes Care. 2016.39(Suppl 1). Performed By: #### 2 4321-2 #### [facility] CLIA [id number] [address] Potassium [Moles/Vol] 4.2 mmol/L Normal 3.7-5.1 [facility] Comment on above: Order Comment: Speci men Type: BLOOD SPECIMEN Ordering Facility: [facility] Address: [address] [place] [address] Performed By: #### 2 4321-2 #### [facility] CLIA [id number] [address] [place] [address] Sodium [Moles/Vol] 133 mmol/L Low 136-144 [facility] Comment on above: Order Comment: Speci men Type: BLOOD SPECIMEN Ordering Facility: [facility] Address: [address] [place] [address] Performed By: #### 2 4321-2 #### [facility] CLIA [id number] [address] [place] [address] Urea nitrogen [Mass/Vol] 27 mg/dL High 9-24 [facility] Comment on above: Order Comment: Speci men Type: BLOOD SPECIMEN Ordering Facility: [facility] Address: [address] [place] [address] Performed By: #### 2 4321-2 #### [facility] CLIA [id number] [address] [place] [address] CBC W Auto Differential pane l (Bld)on 04-12-2024 Basophils (Bld) [#/Vol] 0.06 10*3/uL Normal <0.11 [facility] Comment on above: Order Comment: Speci men Type: BLOOD SPECIMEN Ordering Facility: [facility] Address: [address] [place] [address] Performed By: #### 5 7021-8 #### [facility] CLIA [id number] [address] [place] [address] Basophils/100 WBC (Bld) 0.5 % Normal [facility] Comment on above: Order Comment: Speci men Type: BLOOD SPECIMEN Ordering Facility: [facility] Address: [address] [place] [address] Performed By: #### 5 7021-8 #### [facility] CLIA [id number] [address] [place] [address] Differential cell count method Nom (Bld) Auto Normal [facility] Comment on above: Order Comment: Speci men Type: BLOOD SPECIMEN Ordering Facility: [facility] Address: [address] [place] [address] Performed By: #### 5 7021-8 #### [facility] CLIA [id number] [address] [place] [address] Eosinophils (Bld) [#/Vol] 0.39 10*3/uL Normal <0.46 [facility] Comment on above: Order Comment: Speci men Type: BLOOD SPECIMEN Ordering Facility: [facility] Address: [address] [place] [address] Performed By: #### 5 7021-8 #### [facility] CLIA [id number] [address] [place] [address] Eosinophils/100 WBC (Bld) 3.2 % Normal [facility] Comment on above: Order Comment: Speci men Type: BLOOD SPECIMEN Ordering Facility: [facility] Address: [address] [place] [address] Performed By: #### 5 7021-8 #### [facility] CLIA [id number] [address] [place] [address] Erythrocyte distribution width (RBC) [Ratio] 13.3 % Normal 11.5-15.0 [facility] Comment on above: Order Comment: Speci men Type: BLOOD SPECIMEN Ordering Facility: [facility] Address: [address] [place] [address] Performed By: #### 5 7021-8 #### [facility] CLIA [id number] [address] [place] [address] Hematocrit (Bld) [Volume fraction] 40.6 % Normal 39.0-51.0 [facility] Comment on above: Order Comment: Speci men Type: BLOOD SPECIMEN Ordering Facility: [facility] Address: [address] [place] [address] Performed By: #### 5 7021-8 #### [facility] CLIA [id number] [address] [place] Hemoglobin (Bld) [Mass/Vol] 13.4 g/dL Normal 13.0-17.0 [facility] Comment on above: Order Comment: Speci men Type: BLOOD SPECIMEN Ordering Facility: [facility] Address: [address] [place] [address] Performed By: #### 5 7021-8 #### [facility] CLIA [id number] 1 [place] [address] [place] Immature granulocytes (Bld) [#/Vol] 0.05 10*3/uL Normal <0.10 [facility] Comment on above: Order Comment: Speci men Type: BLOOD SPECIMEN Ordering Facility: [facility] Address: [address] [place] [address] Performed By: #### 5 7021-8 #### [facility] CLIA [id number] [address] [place] Immature granulocytes/100 WBC (Bld) 0.4 % Normal [facility] Comment on above: Order Comment: Speci men Type: BLOOD SPECIMEN Ordering Facility: [facility] Address: [address] [place] [address] Performed By: #### 5 7021-8 #### [facility] CLIA [id number] [address] [place] Lymphocytes (Bld) [#/Vol] 2.34 10*3/uL Normal 1.00-4.0 0 [facility] Comment on above: Order Comment: Speci men Type: BLOOD SPECIMEN Ordering Facility: [facility] Address: [address] [place] [address] Performed By: #### 5 7021-8 #### [facility] CLIA [id number] [address] [place] Lymphocytes/100 WBC (Bld) 19.1 % Normal [facility] Comment on above: Order Comment: Speci men Type: BLOOD SPECIMEN Ordering Facility: [facility] Address: [address] [place] [address] Performed By: #### 5 7021-8 #### [facility] CLIA [id number] [address] [place] [address] MCH (RBC) [Entitic mass] 28.4 pg Normal 26.0-34.0 [facility] Comment on above: Order Comment: Speci men Type: BLOOD SPECIMEN Ordering Facility: [facility] Address: [address] [place] [address] Performed By: #### 5 7021-8 #### [facility] CLIA [id number] [address] [place] [address] MCHC (RBC) [Mass/Vol] 33.0 g/dL Normal 30.5-36.0 [facility] Comment on above: Order Comment: Speci men Type: BLOOD SPECIMEN Ordering Facility: [facility] Address: [address] [place] [address] Performed By: #### 5 7021-8 #### [facility] CLIA [id number] [address] [place] [address] MCV (RBC) [Entitic vol] 86.0 fL Normal 80.0-100.0 [facility] Comment on above: Order Comment: Speci men Type: BLOOD SPECIMEN Ordering Facility: [facility] Address: [address] [place] [address] Performed By: #### 5 7021-8 #### [facility] CLIA [id number] [address] [place] [address] Monocytes (Bld) [#/Vol] 1.38 10*3/uL High <0.87 [facility] Comment on above: Order Comment: Speci men Type: BLOOD SPECIMEN Ordering Facility: [facility] Address: [address] [place] [address] Performed By: #### 5 7021-8 #### [facility] CLIA [id number] [address] [place] [address] Monocytes/100 WBC (Bld) 11.3 % Normal [facility] Comment on above: Order Comment: Speci men Type: BLOOD SPECIMEN Ordering Facility: [facility] Address: [address] [place] [address] Performed By: #### 5 7021-8 #### [facility] CLIA [id number] [address] [place] Neutrophils (Bld) [#/Vol] 8.02 10*3/uL High 1.45-7.5 0 [facility] Comment on above: Order Comment: Speci men Type: BLOOD SPECIMEN Ordering Facility: [facility] Address: [address] [place] [address] Performed By: #### 5 7021-8 #### [facility] CLIA [id number] [address] [place] [address] Neutrophils/100 WBC (Bld) 65.5 % Normal [facility] Comment on above: Order Comment: Speci men Type: BLOOD SPECIMEN Ordering Facility: [facility] Address: [address] [place] [address] Performed By: #### 5 7021-8 #### [facility] CLIA [id number] [address] [place] [address] Nucleated RBC (Bld) [#/Vol] 10*3/uL Normal <0.01 [facility] Comment on above: Order Comment: Speci men Type: BLOOD SPECIMEN Ordering Facility: [facility] Address: [address] [place] [address] Performed By: #### 5 7021-8 #### [facility] CLIA [id number] [address] [place] Nucleated RBC/100 WBC (Bld) [Ratio] 0.0 /100 WBC Normal [facility] Comment on above: Order Comment: Speci men Type: BLOOD SPECIMEN Ordering Facility: [facility] Address: [address] [place] [address] Performed By: #### 5 7021-8 #### [facility] CLIA [id number] [address] [place] Platelet mean volume (Bld) [Entitic vol] 10.7 fL Normal 9.0-12.7 [facility] Comment on above: Order Comment: Speci men Type: BLOOD SPECIMEN Ordering Facility: [facility] Address: [address] [place] [address] Performed By: #### 5 7021-8 #### [facility] CLIA [id number] [address] [place] [address] Platelets (Bld) [#/Vol] 268 10*3/uL Normal 150-400 [facility] Comment on above: Order Comment: Speci men Type: BLOOD SPECIMEN Ordering Facility: [facility] Address: [address] [place] [address] Performed By: #### 5 7021-8 #### [facility] CLIA [id number] [address] [place] [address] RBC (Bld) [#/Vol] 4.72 10*6/uL Normal 4.20-6.00 [facility] Comment on above: Order Comment: Speci men Type: BLOOD SPECIMEN Ordering Facility: [facility] Address: [address] [place] [address] Performed By: #### 5 7021-8 #### [facility] CLIA [id number] [address] [place] [address] WBC (Bld) [#/Vol] 12.24 10*3/uL High 3.70-11.00 [facility] Comment on above: Order Comment: Speci men Type: BLOOD SPECIMEN Ordering Facility: [facility] Address: [address] [place] [address] Performed By: #### 5 7021-8 #### [facility] CLIA [id number] [address] [place] [address] ED PROV NOTEon 04-12-2024 ED PROV NOTE HNO ID: [id number] Author: MELVIN BINGHAM MD Service: Emergency Medicine Author Type: Resident Type: ED Provider Notes Filed: 05/18/2024 00:10 Note Text: ----- Attestation signed by Melvin Bingham MD at [...] revisions and/or additions: Signature: Melvin Bingham MD ----- ED Provider Note Patient Name: Faisal Alarcon : 1945 SERVICE DATE: 04/12/24 History Patient presents with: Hematuria: Pt arrives with family stating patient has been having hematuria since Sunday- was seen [place] [facility] and urologist this week. Pt states [...] He went to the emergency department in [place] and was told to follow-up with urology outpatient. Patient had urology appointment in [place] on of this past week who planned for cystoscopy on April 29. They were told that if he had any new symptoms to go to the emergency department. Patient went back to the emergency department in [place] where they performed lab work that was negative for anemia. The patient is now reporting continued dizziness and headache. Patient inquiring if they can see urology for cystoscopy on a more urgent basis here at [facility]. Patient is well appearing in no [...] Diagnostic Testi (more content not included)... Normal [facility] Urinalysis complete panel (U )on 04-12-2024 Bacteria LM.HPF (Urine sed) [#/Area] Few Abnormal None Seen [facility] Comment on above: Order Comment: Speci men Type: URINE SPECIMEN Ordering Facility: [facility] Address: [address] [place] [address] Performed By: #### 2 4356-8 #### [facility] CLIA [id number] [address] [place] Bilirubin Ql (U) 1+ Abnormal Negative [facility] Comment on above: Order Comment: Speci men Type: URINE SPECIMEN Ordering Facility: [facility] Address: [address] [place] [address] Result Comment: Sugg est correlation with clinical findings and serum bilirubin if clinically indicated. Performed By: #### 2 4356-8 #### [facility] CLIA [id number] [address] [place] Clarity (Unsp spec) Cloudy Abnormal Clear [facility] Comment on above: Order Comment: Speci men Type: URINE SPECIMEN Ordering Facility: [facility] Address: [address] [place] [address] Performed By: #### 2 4356-8 #### [facility] CLIA [id number] [address] [place] Color (U) Yellow Normal Yellow [facility] Comment on above: Order Comment: Speci men Type: URINE SPECIMEN Ordering Facility: [facility] Address: [address] [place] [address] Performed By: #### 2 4356-8 #### [facility] CLIA [id number] [address] [place] [address] Glucose Test strip (U) [Mass/Vol] Trace Abnormal Negative [facility] Comment on above: Order Comment: Speci men Type: URINE SPECIMEN Ordering Facility: [facility] Address: [address] [place] [address] Performed By: #### 2 4356-8 #### [facility] CLIA [id number] [address] STATES [facility] Hemoglobin Ql (U) 3+ Abnormal Negative [facility] Comment on above: Order Comment: Speci men Type: URINE SPECIMEN Ordering Facility: [facility] Address: [address] [place] [address] Performed By: #### 2 4356-8 #### [facility] CLIA [id number] [address] [place] Ketones Ql (U) Trace Abnormal Negative [facility] Comment on above: Order Comment: Speci men Type: URINE SPECIMEN Ordering Facility: [facility] Address: [address] [place] [address] Performed By: #### 2 4356-8 #### [facility] CLIA [id number] [address] [place] [address] Leukocyte esterase Test strip Ql (U) Negative Normal Negative [facility] Comment on above: Order Comment: Speci men Type: URINE SPECIMEN Ordering Facility: [facility] Address: [address] [place] [address] Performed By: #### 2 4356-8 #### [facility] CLIA [id number] [address] [place] Nitrite Ql (U) Negative Normal Negative [facility] Comment on above: Order Comment: Speci men Type: URINE SPECIMEN Ordering Facility: [facility] Address: [address] [place] [address] Performed By: #### 2 4356-8 #### [facility] CLIA [id number] [address] [place] [address] pH (U) 6.0 [pH] Normal 5.0-8.0 [facility] Comment on above: Order Comment: Speci men Type: URINE SPECIMEN Ordering Facility: [facility] Address: [address] [place] [address] Performed By: #### 2 4356-8 #### [facility] CLIA [id number] [address] [place] [address] Protein (U) [Mass/Vol] 1+ Abnormal Negative [facility] Comment on above: Order Comment: Speci men Type: URINE SPECIMEN Ordering Facility: [facility] Address: [address] [place] [address] Performed By: #### 2 4356-8 #### [facility] CLIA [id number] [address] [place] [address] RBC LM.HPF (Urine sed) [#/Area] /[HPF] Abnormal 0-3 /HPF [facility] Comment on above: Order Comment: Speci men Type: URINE SPECIMEN Ordering Facility: [facility] Address: [address] [place] [address] Performed By: #### 2 4356-8 #### [facility] CLIA [id number] [address] [place] [address] Specific gravity (U) [Rel density] >=1.030 High 1.005-1.03 0 [facility] Comment on above: Order Comment: Speci men Type: URINE SPECIMEN Ordering Facility: [facility] Address: [address] [place] [address] Performed By: #### 2 4356-8 #### [facility] CLIA [id number] [address] [place] [address] Urobilinogen Ql (U) 0.2 EU/dL Normal 0.2 EU/d L, 1.0 EU/dL [facility] Comment on above: Order Comment: Speci men Type: URINE SPECIMEN Ordering Facility: [facility] Address: [address] [place] [id number] Performed By: #### 2 4356-8 #### [facility] CLIA [id number] [address] [place] [address] WBC LM.HPF (Urine sed) [#/Area] 6-10 /HPF Abnormal 0-5 /HPF [facility] Comment on above: Order Comment: Speci men Type: URINE SPECIMEN Ordering Facility: [facility] Address: [address] [place] [id number] Performed By: #### 2 4356-8 #### [facility] CLIA [id number] [address] [place] [id number] [facility] XR Chest PA and Lateralon IMPRESSION: No developing abnormality or acute process Co Director: BERNIE Transcribe Date/Time: Feb 05 2024 8:15A Dictated by : TRES CARSON MD This examination was interpreted and the report reviewed and electronically signed by: TRES CARSON MD on Feb 05 2024 8:16AM [facility] DIVISION OF RADIOLOGY * * *Final [...] change and osteophytosis. DIVISION OF RADIOLOGY Provider, [facility] - 02/05/2024 * * *Final Report* [...] IMPRESSION: No developing abnormality or acute process Co Director: BERNIE Transcribe Date/Time: Feb 05 2024 8:15A Dictated by : TRES CARSON MD This examination was interpreted and the report reviewed and electronically signed by: TRES CARSON MD on Feb 05 2024 8:16AM EST [facility] XR Chest PA and LateralOrder ed By: [facility] Provider on 02-05-2024 [facility] CBC W Auto Differential pane l (Bld)on 02-04-2024 Basophils (Bld) [#/Vol] 0.05 10*3/uL [facility] Basophils/100 WBC (Bld) 0.4 % C [facility] Differential cell count method Nom (Bld) Auto [facility] Eosinophils (Bld) [#/Vol] 0.34 10*3/uL [facility] Eosinophils/100 WBC (Bld) 3.0 % [facility] Erythrocyte distribution width (RBC) [Ratio] 12.9 % 11.5 - 15.0 % [facility] Hematocrit (Bld) [Volume fraction] 41.9 % 39.0 - 51.0 % [facility] Hemoglobin (Bld) [Mass/Vol] 13.5 g/dL 13.0 - 17.0 g/dL [facility] Immature granulocytes (Bld) [#/Vol] 0.05 10*3/uL [facility] Immature granulocytes/100 WBC (Bld) 0.4 % [facility] Interpretation and review of laboratory results Abnormal [facility] Lymphocytes (Bld) [#/Vol] 1.59 10*3/uL [facility] Lymphocytes/100 WBC (Bld) 14.2 % [facility] MCH (RBC) [Entitic mass] 28.4 pg 26. 0 - 34.0 pg [facility] MCHC (RBC) [Mass/Vol] 32.2 g/dL 30.5 - 36.0 g/dL [facility] MCV (RBC) [Entitic vol] 88.2 fL 80.0 - 100.0 fL [facility] Monocytes (Bld) [#/Vol] 1.24 10*3/uL High [facility] Monocytes/100 WBC (Bld) 11.1 % C [facility] Neutrophils (Bld) [#/Vol] 7.91 10*3/uL High [facility] Neutrophils/100 WBC (Bld) 70.9 % [facility] Nucleated RBC (Bld) [#/Vol] [facility] Nucleated RBC/100 WBC (Bld) [Ratio] 0.0 % /100 WBC [facility] Platelet mean volume (Bld) [Entitic vol] 11.4 fL 9.0 - 12.7 fL [facility] Platelets (Bld) [#/Vol] 256 10*3/uL [facility] RBC (Bld) [#/Vol] 4.75 10*6/uL 4.20 - 6.00 m/uL [facility] WBC (Bld) [#/Vol] 11.18 10*3/uL High [facility] XR Chest PA and Lateralon Radiology Study observation (narrative) [place] Absolute lymphocyte countOrd ered By: Tre Johnson on 09-22-2023 Lymphocytes Auto (Unsp spec) [#/Vol] 1.76 10*3/uL 0.83-4.51 [facility] Basophil percentageOrdered B y: Tre Johnson on 09-22-2023 Basophils/100 WBC (Bld) 0.4 % 0-1 [facility] Chloride [Moles/Vol] 106 mmol/L 98-107 [facility] Eosinophils/100 WBC (Bld) 3.4 % 0-5 [facility] Glucose [Mass/Vol] 168 mg/dL 74-106 [facility] Comment on above: Fasting Glucose resu lt greater than or equal to 126 mg/dL suggests DIABETES MELLITUS per A.D.A. criteria. Neutrophils (Bld) [#/Vol] 8.5 10*3/uL 2.0-7.7 [facility] Neutrophils/100 WBC (Bld) 71.2 % 47-70 [facility] Potassium [Moles/Vol] 4.0 mmol/L 3.5-5.1 [facility] Sodium [Moles/Vol] 137 mmol/L 136-145 [facility] WBC (Bld) [#/Vol] 12.0 10*3/uL 4.4-11.0 [facility] Blood erythrocytes count (nu mber/volume)Ordered By: Tre Johnson on 09-22-2023 RBC (Bld) [#/Vol] 5.22 10*6/uL 4.6-6.2 [facility] Blood hemoglobin measurement (mass/volume)Ordered By: Tre Johnson on 09-22-2023 Hemoglobin (Bld) [Mass/Vol] 14.1 g/dL 13.0-16.5 [facility] [facility]/100 leukoc ytesOrdered By: Tre Johnson on 09-22-2023 Lymphocytes/100 WBC (Bld) 14.7 % 19-41 [facility] Blood monocytes/100 leukocyt esOrdered By: Tre Johnson on 09-22-2023 Monocytes/100 WBC (Bld) 9.9 % 0-10 [facility] Blood platelet mean volumeOr dered By: Tre Johnson on 09-22-2023 Platelet mean volume (Bld) [Entitic vol] 10.9 fL 6.2-12.0 [facility] Determination of erythrocyte mean corpuscular volume (MCV)Ordered By: Tre Johnson on 09-22-2023 MCV (RBC) [Entitic vol] 83.5 fL 80-94 [facility] Hematocrit Auto (Bld) [Volum e fraction]Ordered By: Tre Johnson on 09-22-2023 Hematocrit (Bld) [Volume fraction] 43.6 % 40-54 [facility] Laboratory - Chemistry and C hemistry - challengeOrdered By: Tre Johnson on 09-22-2023 CO2 [Moles/Vol] 25.0 mmol/L 21.0-32.0 [facility] Urea nitrogen/Creatinine [Mass ratio] 16.8 mg/mg 10-20 [facility] Laboratory - Hematology and Cell countsOrdered By: Tre Johnson on 09-22-2023 Erythrocyte distribution width (RBC) [Entitic vol] 43.0 fL 35.1-43.9 [facility] Erythrocyte distribution width (RBC) [Ratio] 14.2 % 11.6-14.6 [facility] Immature granulocytes/100 WBC (Bld) 0.400 % 0.0-0.9 [facility] Comment on above: IG% - Immature Granu locytes (promyelocytes, myelocytes and metamyelocytes) > 1% indicates that a LEFT SHIFT is Present. MCH (RBC) [Entitic mass] 27.0 pg 27.0-32.0 [facility] Nucleated RBC/100 WBC (Bld) [Ratio] 0 % 0-5 [facility] MCHC Auto (RBC) [Mass/Vol]Or dered By: Tre Johnson on 09-22-2023 MCHC (RBC) [Mass/Vol] 32.3 g/dL 32-36 [facility] No Panel InformationOrdered By: Tre Johnson on 09-22-2023 Troponin I High Sensitivity 9 pg/mL 3.0-78.0 [facility] Comment on above: Please Note: New [place] t Units and Gender Specific Reference Ranges. For more information see Policy Stat Procedure [place] High Sensitivity Troponin (TNIH) and attachments. Estimated Creatinine Clearance Calc 63.26 ml/min [facility] Estimated GFR (MDRD) Amer 86 mL/min >60 [facility] Comment on above: GFR Calc Estimated GFR (MDRD) Non-Af Amer 71 mL/min >60 [facility] Comment on above: Non- GFR Calc Platelets bldOrdered By: Tashi Johnson on 09-22-2023 Platelets (Bld) [#/Vol] 210 10*3/uL 150-450 [facility] Comment on above: NO PLATELET CLUMPS Serum or plasma calcium nahomy urement (mass/volume)Ordered By: Tre Johnson on 09-22-2023 Calcium [Mass/Vol] 9.4 mg/dL 8.5-10.1 [facility] Serum or plasma creatinine m easurement (mass/volume)Ordered By: Tre Johnson on 09-22-2023 Creatinine [Mass/Vol] 1.07 mg/dL 0.70-1.30 [facility] Comment on above: The validity of the calculated GFR & GFRAA in patients over 70 years has not been determined. Clinical correlation is essential. Serum or plasma urea nitroge n measurement (mass/volume)Ordered By: Tre Johnson on 09-22-2023 Urea nitrogen [Mass/Vol] 18 mg/dL 7-18 [facility] Thin prep Papanicolaou smear with manual screeningOrdered By: Tre Johnson on 09-22-2023 Thin prep Papanicolaou smear with manual screening 6 5-15 [facility] XR Chest PA and Lateralon IMPRESSION: Diffuse coarsening of the lung markings, with areas of linear atelectasis or fibrosis. Stable Cardiomegaly Co Director: BERNIE Transcribe Date/Time: Sep 11 2023 12:08P Dictated by : TRES CARSON MD This examination was interpreted and the report reviewed and electronically signed by: TRES CARSON MD on Sep 11 2023 12:10PM [facility] DIVISION OF RADIOLOGY * * *Final [...] Multilevel degenerative change. DIVISION OF RADIOLOGY [facility] * * *Final Report* * [...] of linear atelectasis or fibrosis. Stable Cardiomegaly Co Director: BERNIE Transcribe Date/Time: Sep 11 2023 12:08P Dictated by : TRES CARSON MD This examination was interpreted and the report reviewed and electronically signed by: TRES CARSON MD on Sep 11 2023 12:10PM EST [facility] XR Chest PA and LateralOrder ed By: Ccf Provider on 09-11-2023 [facility] XR Chest PA and Lateralon Radiology Study observation (narrative) [place] XR Pelvis and Hip - right AP and Lateral frogon 07-25-2023 IMPRESSION: Minimal right hip osteoarthritis without acute osseous abnormality. Co Director: BERNIE Transcribe Date/Time: Jul 25 2023 9:21A Dictated by : CARINA IGLESIAS DO This examination was interpreted and the report reviewed and electronically signed by: CARINA IGLESIAS DO on Jul 25 2023 9:22AM [facility] DIVISION OF RADIOLOGY * * *Final [...] spine. Pelvic enthesopathy. DIVISION OF RADIOLOGY Provider, Dara aBrahona - 07/25/2023 * * *Final Report* * [...] right hip osteoarthritis without acute osseous abnormality. Co Director: BERNIE Transcribe Date/Time: Jul 25 2023 9:21A Dictated by : CARINA IGLESIAS DO This examination was interpreted and the report reviewed and electronically signed by: CARINA IGLESIAS DO on Jul 25 2023 9:22AM EST [facility] XR Pelvis and Hip - right AP and Lateral frogOrdered By: Cc Provider on 07-25-2023 [facility] XR Pelvis and Hip - right AP and Lateral frogon 07-23-2023 Radiology Study observation (narrative) [place] XR CHEST 2V FRONTAL/LATon [facility] XR Chest PA and Lateralon IMPRESSION: Question of some mild bilateral perihilar infiltrate. Co Director: BERNIE Transcribe Date/Time: Jun 09 2023 12:07P Dictated by : MAN ROSADO DO This examination was interpreted and the report reviewed and electronically signed by: MAN ROSADO DO on Jun 09 2023 12:08PM [facility] DIVISION OF RADIOLOGY * * *Final [...] soft tissues: Unremarkable. DIVISION OF RADIOLOGY Provider, [facility] - 06/09/2023 * * *Final Report* * [...] Question of some mild bilateral perihilar infiltrate. Co Director: BERNIE Transcribe Date/Time: Jun 09 2023 12:07P Dictated by : MAN ROSADO DO This examination was interpreted and the report reviewed and electronically signed by: MAN ROSADO DO on Jun 09 2023 12:08PM EST [facility] Radiology Study observation (narrative) [facility] XR Chest PA and LateralOrder ed By: Ccf Provider on 06-09-2023 [facility] Absolute lymphocyte countOrd ered By: Mani Esquivel on 03-31-2023 Lymphocytes Auto (Unsp spec) [#/Vol] 1.83 10*3/uL 0.83-4.51 [facility] Basophil percentageOrdered B y: Mani Esquivel on 03-31-2023 Basophils/100 WBC (Bld) 0.5 % 0-1 [facility] Bilirubin [Mass/Vol] 0.30 mg/dL 0.20-1.00 [facility] Comment on above: For patients on eltr ombopag therapy, use of Dimension [place] TBIL is not recommended. Chloride [Moles/Vol] 103 mmol/L 98-107 [facility] Eosinophils/100 WBC (Bld) 3.4 % 0-5 [facility] Glucose [Mass/Vol] 81 mg/dL 74-106 [facility] Neutrophils (Bld) [#/Vol] 8.5 10*3/uL 2.0-7.7 [facility] Neutrophils/100 WBC (Bld) 68.4 % 47-70 [facility] Potassium [Moles/Vol] 4.6 mmol/L 3.5-5.1 [facility] Comment on above: Moderate Hemolysis, Result may be falsely increased. Protein [Mass/Vol] 7.2 g/dL 6.4-8.2 [facility] Sodium [Moles/Vol] 135 mmol/L 136-145 [facility] WBC (Bld) [#/Vol] 12.4 10*3/uL 4.4-11.0 [facility] Blood erythrocytes count (nu mber/volume)Ordered By: Mani Esquivel on 03-31-2023 RBC (Bld) [#/Vol] 4.74 10*6/uL 4.6-6.2 [facility] Blood hemoglobin measurement (mass/volume)Ordered By: Mani Esquivel on 03-31-2023 Hemoglobin (Bld) [Mass/Vol] 13.6 g/dL 13.0-16.5 [facility] Blood lymphocytes/100 leukoc ytesOrdered By: Mani Esquivel on 03-31-2023 Lymphocytes/100 WBC (Bld) 14.8 % 19-41 [facility] Blood manual differential co mment interpretation (narrative result)Ordered By: Mani Esquivel on 03-31-2023 Manual differential comment Rey (Bld) [Interp] SCANNED [facility] Comment on above: MONOCYTOSIS Blood monocytes/100 leukocyt esOrdered By: Mani Esquivel on 03-31-2023 Monocytes/100 WBC (Bld) 12.5 % 0-10 [facility] Blood platelet mean volumeOr dered By: Mani Esquivel on 03-31-2023 Platelet mean volume (Bld) [Entitic vol] 11.0 fL 6.2-12.0 [facility] Determination of erythrocyte mean corpuscular volume (MCV)Ordered By: Mani Esquivel on 03-31-2023 MCV (RBC) [Entitic vol] 88.2 fL 80-94 [facility] Direct bilirubinOrdered By: Mani Esquivel on 03-31-2023 Bilirubin.direct [Mass/Vol] 0.07 mg/dL 0.00-0.30 [facility] Hematocrit Auto (Bld) [Volum e fraction]Ordered By: Mani Esquivel on 03-31-2023 Hematocrit (Bld) [Volume fraction] 41.8 % 40-54 [facility] Laboratory - Chemistry and C hemistry - challengeOrdered By: Mani Esquivel on 03-31-2023 ALP [Catalytic activity/Vol] 72 U/L 45-117 [facility] ALT [Catalytic activity/Vol] 32 U/L 16-61 [facility] CO2 [Moles/Vol] 25.0 mmol/L 21.0-32.0 [facility] Globulin (S) [Mass/Vol] 3.8 g/dL 2.2-4.2 [facility] Lipase [Catalytic activity/Vol] 433 U/L 13-75 [facility] Comment on above: Please note:LIPASE r evised reference range effective 22. New Lipase methodology. Expected to produce lower values than the previous assay method. NEW Reference Range: 13 - 75 U/L Urea nitrogen/Creatinine [Mass ratio] 14.8 mg/mg 10-20 [facility] Laboratory - Hematology and Cell countsOrdered By: Mani Esquivel on 03-31-2023 Erythrocyte distribution width (RBC) [Entitic vol] 42.4 fL 35.1-43.9 [facility]th[facility] distribution width (RBC) [Ratio] 13.1 % 11.6-14.6 [facility] Immature granulocytes/100 WBC (Bld) 0.400 % 0.0-0.9 [facility] Comment on above: IG% - Immature Granu locytes (promyelocytes, myelocytes and metamyelocytes) > 1% indicates that a LEFT SHIFT is Present. MCH (RBC) [Entitic mass] 28.7 pg 27.0-32.0 [facility] Nucleated RBC/100 WBC (Bld) [Ratio] 0 % 0-5 [facility] MCHC Auto (RBC) [Mass/Vol]Or dered By: Mani Esquivel on 03-31-2023 MCHC (RBC) [Mass/Vol] 32.5 g/dL 32-36 [facility] No Panel InformationOrdered By: Mani Esquivel on 03-31-2023 Estimated GFR (MDRD) Amer 51 mL/min >60 [facility] Comment on above: GFR Calc Estimated GFR (MDRD) Non-Af Amer 42 mL/min >60 [facility] Comment on above: Non- GFR Calc Platelets bldOrdered By: Rashel Esquivel on 03-31-2023 Platelets (Bld) [#/Vol] 249 10*3/uL 150-450 [facility] Review by pathologistOrdered By: Mani Esquivel on 03-31-2023 Pathologist review Rey (Unsp spec) [Interp] Tamara bernard [facility] Pathologist review Rey (Unsp spec) [Interp] Reviewed [facility] Comment on above: Previous reported re sult: Tamara bernard Edited by: RGOANTONIETTA on 04/03/23:1218Leukocytosis.Clinical correlation necessary.Callum Arteaga M.D. 04/03/23 AMENDED REPORT 04/03/23 1218 PATH REV previously reported as: Tamara bernard Serum or plasma albumin nahomy urement (mass/volume)Ordered By: Mani Esquivel on 03-31-2023 Albumin [Mass/Vol] 3.4 g/dL 3.2-5.0 [facility] Serum or plasma calcium nahomy urement (mass/volume)Ordered By: Mani Esquivel on 03-31-2023 Calcium [Mass/Vol] 8.7 mg/dL 8.5-10.1 [facility] Serum or plasma creatinine m easurement (mass/volume)Ordered By: Mani Esquivel on 03-31-2023 Creatinine [Mass/Vol] 1.69 mg/dL 0.70-1.30 [facility] Comment on above: The validity of the calculated GFR & GFRAA in patients over 70 years has not been determined. Clinical correlation is essential. Serum or plasma urea nitroge n measurement (mass/volume)Ordered By: Mani Esquivel on 03-31-2023 Urea nitrogen [Mass/Vol] 25 mg/dL 04-03 [facility] Thin prep Papanicolaou smear with manual screeningOrdered By: Mani Esquivel on 03-31-2023 Thin prep Papanicolaou smear with manual screening 27 U/L [facility] Comment on above: Moderate Hemolysis, Result may be falsely increased. Thin prep Papanicolaou smear with manual screening 7 01-29 [facility] CBC W Auto Differential pane l (Bld)on 03-02-2023 Basophils (Bld) [#/Vol] 0.06 10*3/uL <0.11 k/uL [facility] Basophils/100 WBC (Bld) 0.5 % [facility] Differential cell count method Nom (Bld) Auto [facility] Eosinophils (Bld) [#/Vol] 0.44 10*3/uL <0.46 k/ uL [facility] Eosinophils/100 WBC (Bld) 4.0 % [facility] Erythrocyte distribution width (RBC) [Ratio] 13.3 % 11.5 - 15.0 % [facility] Hematocrit (Bld) [Volume fraction] 44.9 % 39.0 - 51.0 % [facility] Hemoglobin (Bld) [Mass/Vol] 14.4 g/dL 13.0 - 17.0 g/dL [facility] Immature granulocytes (Bld) [#/Vol] 0.04 10*3/uL <0.10 k/uL [facility] Immature granulocytes/100 WBC (Bld) 0.4 % [facility] Lymphocytes (Bld) [#/Vol] 2.03 10*3/uL 1. 00 - 4.00 k/uL [facility] Lymphocytes/100 WBC (Bld) 18.5 % [facility] MCH (RBC) [Entitic mass] 28.7 pg 26. 0 - 34.0 pg [facility] MCHC (RBC) [Mass/Vol] 32.1 g/dL 30.5 - 36.0 g/dL [facility] MCV (RBC) [Entitic vol] 89.4 fL 80.0 - 100.0 fL [facility] Monocytes (Bld) [#/Vol] 1.22 10*3/uL High <0.87 k/uL [facility] Monocytes/100 WBC (Bld) 11.1 % C [facility] Neutrophils (Bld) [#/Vol] 7.19 10*3/uL 1. 45 - 7.50 k/uL [facility] Neutrophils/100 WBC (Bld) 65.5 % [facility] Nucleated RBC (Bld) [#/Vol] <0.01 k/uL [facility] Nucleated RBC/100 WBC (Bld) [Ratio] 0.0 /100 WBC [facility] Platelet mean volume (Bld) [Entitic vol] 11.5 fL 9.0 - 12.7 fL [facility] Platelets (Bld) [#/Vol] 259 10*3/uL 150 - 400 k/uL [facility] RBC (Bld) [#/Vol] 5.02 10*6/uL 4.20 - 6.00 m/uL [facility] WBC (Bld) [#/Vol] 10.98 10*3/uL 3.70 - 11.00 k/uL [facility] Absolute lymphocyte countOrd ered By: Dr. Taylor on 03-01-2023 Lymphocytes Auto (Unsp spec) [#/Vol] 2.50 10*3/uL 0.83-4.51 [facility] Basophil percentageOrdered B y: Dr. Taylor on 03-01-2023 Basophils/100 WBC (Bld) 0.5 % 0-1 [facility] Bilirubin [Mass/Vol] 0.30 mg/dL 0.20-1.00 [facility] Comment on above: For patients on eltr ombopag therapy, use of Dimension [place] TBIL is not recommended. Chloride [Moles/Vol] 101 mmol/L 98-107 [facility] Eosinophils/100 WBC (Bld) 3.2 % 0-5 [facility] Glucose [Mass/Vol] 132 mg/dL 74-106 [facility] Comment on above: Fasting Glucose resu lt greater than or equal to 126 mg/dL suggests DIABETES MELLITUS per A.D.A. criteria. Neutrophils (Bld) [#/Vol] 7.2 10*3/uL 2.0-7.7 [facility] Neutrophils/100 WBC (Bld) 62.9 % 47-70 [facility] Potassium [Moles/Vol] 3.8 mmol/L 3.5-5.1 [facility] Protein [Mass/Vol] 7.1 g/dL 6.4-8.2 [facility] Sodium [Moles/Vol] 133 mmol/L 136-145 [facility] WBC (Bld) [#/Vol] 11.4 10*3/uL 4.4-11.0 [facility] Basophil percentage 0-5 SEEN /hpf 0-5 [facility] Bilirubin Test strip Ql (U)O rdered By: Dr. Taylor on 03-01-2023 Bilirubin Ql (U) Negative Negative [facility] Blood erythrocytes count (nu mber/volume)Ordered By: Dr. Taylor on 03-01-2023 RBC (Bld) [#/Vol] 4.89 10*6/uL 4.6-6.2 [facility] Blood hemoglobin measurement (mass/volume)Ordered By: Dr. Taylor on 03-01-2023 Hemoglobin (Bld) [Mass/Vol] 14.0 g/dL 13.0-16.5 [facility] Blood lymphocytes/100 leukoc ytesOrdered By: Dr. Taylor on 03-01-2023 Lymphocytes/100 WBC (Bld) 21.9 % 19-41 [facility] Blood monocytes/100 leukocyt esOrdered By: Dr. Taylor on 03-01-2023 Monocytes/100 WBC (Bld) 11.2 % 0-10 [facility] Blood platelet mean volumeOr dered By: Dr. Taylor on 03-01-2023 Platelet mean volume (Bld) [Entitic vol] 10.9 fL 6.2-12.0 [facility] Determination of erythrocyte mean corpuscular volume (MCV)Ordered By: Dr. Taylor on 03-01-2023 MCV (RBC) [Entitic vol] 86.1 fL 80-94 [facility] Hematocrit Auto (Bld) [Volum e fraction]Ordered By: Dr. Taylor on 03-01-2023 Hematocrit (Bld) [Volume fraction] 42.1 % 40-54 [facility] Hyaline casts LM.LPF (Urine sed) [#/Area]Ordered By: Dr. Taylor on 03-01-2023 Hyaline casts (Urine sed) [#/Area] 0 /[LPF] 0-5 [facility] Ketones Test strip Ql (U)Ord ered By: Dr. Taylor on 03-01-2023 Ketones Ql (U) 5 mg/dl Negative [facility] Laboratory - Chemistry and C hemistry - challengeOrdered By: Dr. Taylor on 03-01-2023 ALP [Catalytic activity/Vol] 73 U/L 45-117 [facility] ALT [Catalytic activity/Vol] 33 U/L 16-61 [facility] CO2 [Moles/Vol] 24.0 mmol/L 21.0-32.0 [facility] Globulin (S) [Mass/Vol] 3.6 g/dL 2.2-4.2 [facility] Lipase [Catalytic activity/Vol] 82 U/L 13-75 [facility] Comment on above: Please note:LIPASE r evised reference range effective 22. New Lipase methodology. Expected to produce lower values than the previous assay method. NEW Reference Range: 13 - 75 U/L Urea nitrogen/Creatinine [Mass ratio] 24.8 mg/mg 10-20 [facility] Laboratory - Hematology and Cell countsOrdered By: Dr. Taylor on 03-01-2023 Erythrocyte distribution width (RBC) [Entitic vol] 41.3 fL 35.1-43.9 [facility] Erythrocyte distribution width (RBC) [Ratio] 13.2 % 11.6-14.6 [facility] Immature granulocytes/100 WBC (Bld) 0.300 % 0.0-0.9 [facility] Comment on above: IG% - Immature Granu locytes (promyelocytes, myelocytes and metamyelocytes) > 1% indicates that a LEFT SHIFT is Present. MCH (RBC) [Entitic mass] 28.6 pg 27.0-32.0 [facility] Nucleated RBC/100 W[facility] (Bld) [Ratio] 0 [facility] [Mass/Vol]Or dered By: Dr. Taylor on 03-01-2023 MCHC (RBC) [Mass/Vol] 33.3 g/dL 32-36 [facility] Mucus LM Ql (Urine sed)Order ed By: Dr. Taylor on 03-01-2023 Mucus Ql (Urine sed) 0 SEEN /hpf [facility] Nitrite Test strip Ql (U)Ord ered By: Dr. Taylor on 03-01-2023 Nitrite Ql (U) Negative Negative [facility] No Panel InformationOrdered By: Dr. Taylor on 03-01-2023 Estimated Creatinine Clearance Calc 48.80 ml/min [facility] Estimated GFR (MDRD) Amer 62 mL/min >60 [facility] Comment on above: GFR Calc Estimated GFR (MDRD) Non-Af Amer 52 mL/min >60 [facility] Comment on above: Non- GFR Calc Troponin I High Sensitivity 7 pg/mL 3.0-78.0 [facility] Comment on above: Please Note: New [place] t Units and Gender Specific Reference Ranges. For more information see Policy Stat Procedure [place] High Sensitivity Troponin (TNIH) and attachments. Platelets bldOrdered By: Dr. Taylor on 03-01-2023 Platelets (Bld) [#/Vol] 266 10*3/uL 150-450 [facility] Protein Test strip Ql (U)Ord ered By: Dr. Taylor on 03-01-2023 Protein Ql (U) 15 mg/dl Negative [facility] Serum or plasma albumin nahomy urement (mass/volume)Ordered By: Dr. Taylor on 03-01-2023 Albumin [Mass/Vol] 3.5 g/dL 3.2-5.0 [facility] Serum or plasma albumin/glob ulin mass ratioOrdered By: Dr. Taylor on 03-01-2023 Albumin/Globulin [Mass ratio] 1.0 {ratio} 0.9-2.4 [facility] Serum or plasma calcium nahomy urement (mass/volume)Ordered By: Dr. Taylor on 03-01-2023 Calcium [Mass/Vol] 9.1 mg/dL 8.5-10.1 [facility] Serum or plasma creatinine m easurement (mass/volume)Ordered By: Dr. Taylor on 03-01-2023 Creatinine [Mass/Vol] 1.41 mg/dL 0.70-1.30 [facility] Comment on above: The validity of the calculated GFR & GFRAA in patients over 70 years has not been determined. Clinical correlation is essential. Serum or plasma urea nitroge n measurement (mass/volume)Ordered By: Dr. Taylor on 03-01-2023 Urea nitrogen [Mass/Vol] 35 mg/dL 7-18 [facility] Squamous epithelial cells de tection in urine sediment by light microscopyOrdered By: Dr. Taylor on 03-01-2023 Epithelial cells.squamous LM Ql (Urine sed) 0-5 SEEN /hpf 0-5 [facility] Thin prep Papanicolaou smear with manual screeningOrdered By: Dr. Taylor on 03-01-2023 Thin prep Papanicolaou smear with manual screening 16 U/L 15-37 [facility] Thin prep Papanicolaou smear with manual screening 8 5-15 [facility] Urine blood detectionOrdered By: Dr. Taylor on 03-01-2023 RBC Ql (U) 50 /ul Negative [facility] RBC Ql (U) 0-5 SEEN /hpf 0-5 [facility] Urine clarityOrdered By: Dr. Taylor on 03-01-2023 Clarity (U) Clear Clear [facility] Urine color determinationOrd ered By: Dr. Taylor on 03-01-2023 Color (U) Yellow Yellow [facility] Urine glucose detectionOrder ed By: Dr. Taylor on 03-01-2023 Glucose Ql (U) 250 mg/dl Normal [facility] Urine leukocyte esterase det ection by dipstickOrdered By: Dr. Taylor on 03-01-2023 Leukocyte esterase Test strip Ql (U) Negative Negative [facility] Urine pHOrdered By: Dr. Katlyn burns on 03-01-2023 pH (U) 5.0 [pH] 5.0 - 8.0 [facility] Urine sediment bacteria coun t by microscopy (number/high power field)Ordered By: Dr. Taylor on 03-01-2023 Bacteria LM.HPF (Urine sed) [#/Area] 0 /[HPF] None Seen [facility] Urine specific gravity measu rementOrdered By: Dr. Taylor on 03-01-2023 Specific gravity (U) [Rel density] 1.025 1.002-1.03 0 [facility] Urobilinogen Auto test strip Ql (U)Ordered By: Dr. Taylor on 03-01-2023 Urobilinogen Ql (U) Normal mg/dl Normal [facility] Glucose Glucometer (BldC) [M ass/Vol]Ordered By: Mani Esquivel on 02-25-2023 Glucose [Mass/Vol] 132 mg/dL 74-106 [facility] Comment on above: MANAGEMENT OF PATIEN T CARE PER NURSING PROTOCOL Absolute lymphocyte countOrd ered By: Mani Esquivel on 02-24-2023 Lymphocytes Auto (Unsp spec) [#/Vol] 1.89 10*3/uL 0.83-4.51 [facility] Basophil percentageOrdered B y: Mani Esquivel on 02-24-2023 Basophils/100 WBC (Bld) 0.4 % 0-1 [facility] Bilirubin [Mass/Vol] 0.20 mg/dL 0.20-1.00 [facility] Comment on above: For patients on eltr ombopag therapy, use of Dimension [place] TBIL is not recommended. Chloride [Moles/Vol] 106 mmol/L 98-107 [facility] Eosinophils/100 WBC (Bld) 4.3 % 0-5 [facility] Glucose [Mass/Vol] 66 mg/dL 74-106 [facility] Neutrophils (Bld) [#/Vol] 6.7 10*3/uL 2.0-7.7 [facility] Neutrophils/100 WBC (Bld) 65.7 % 47-70 [facility] Potassium [Moles/Vol] 3.9 mmol/L 3.5-5.1 [facility] Protein [Mass/Vol] 6.9 g/dL 6.4-8.2 [facility] Sodium [Moles/Vol] 138 mmol/L 136-145 [facility] WBC (Bld) [#/Vol] 10.2 10*3/uL 4.4-11.0 [facility] Blood erythrocytes count (nu mber/volume)Ordered By: Mani Esquivel on 02-24-2023 RBC (Bld) [#/Vol] 4.82 10*6/uL 4.6-6.2 [facility] Blood hemoglobin measurement (mass/volume)Ordered By: Mani Esquivel on 02-24-2023 Hemoglobin (Bld) [Mass/Vol] 13.9 g/dL 13.0-16.5 [facility] Blood lymphocytes/100 leukoc ytesOrdered By: Mani Esquivel on 02-24-2023 Lymphocytes/100 WBC (Bld) 18.5 % 19-41 [facility] Blood monocytes/100 leukocyt esOrdered By: Mani Esquivel on 02-24-2023 Monocytes/100 WBC (Bld) 10.7 % 0-10 [facility] Blood platelet mean volumeOr dered By: Mani Esquivel on 02-24-2023 Platelet mean volume (Bld) [Entitic vol] 10.7 fL 6.2-12.0 [facility] Determination of erythrocyte mean corpuscular volume (MCV)Ordered By: Mani Esquivel on 02-24-2023 MCV (RBC) [Entitic vol] 86.9 fL 80-94 [facility] Direct bilirubinOrdered By: Mani Esquivel on 02-24-2023 Bilirubin.direct [Mass/Vol] 0.10 mg/dL 0.00-0.30 [facility] Hematocrit Auto (Bld) [Volum e fraction]Ordered By: Mani Esquivel on 02-24-2023 Hematocrit (Bld) [Volume fraction] 41.9 % 40-54 [facility] Laboratory - Chemistry and C hemistry - challengeOrdered By: Mani Esquivel on 02-24-2023 ALP [Catalytic activity/Vol] 61 U/L 45-117 [facility] ALT [Catalytic activity/Vol] 33 U/L 16-61 [facility] CO2 [Moles/Vol] 24.0 mmol/L 21.0-32.0 [facility] Globulin (S) [Mass/Vol] 3.6 g/dL 2.2-4.2 [facility] Lipase [Catalytic activity/Vol] 96 U/L 13-75 [facility] Comment on above: Please note:LIPASE r evised reference range effective 22. New Lipase methodology. Expected to produce lower values than the previous assay method. NEW Reference Range: 13 - 75 U/L Urea nitrogen/Creatinine [Mass ratio] 20.0 mg/mg 10-20 [facility] Laboratory - Hematology and Cell countsOrdered By: Mani Esquivel on 02-24-2023 Erythrocyte distribution width (RBC) [Entitic vol] 42.4 fL 35.1-43.9 [facility] Erythrocyte distribution width (RBC) [Ratio] 13.4 % 11.6-14.6 [facility] Immature granulocytes/100 WBC (Bld) 0.400 % 0.0-0.9 [facility] Comment on above: IG% - Immature Granu locytes (promyelocytes, myelocytes and metamyelocytes) > 1% indicates that a LEFT SHIFT is Present. MCH (RBC) [Entitic mass] 28.8 pg 27.0-32.0 [facility] Nucleated RBC/100 WBC (Bld) [Ratio] 0 % 0-5 [facility] MCHC Auto (RBC) [Mass/Vol]Or dered By: Mani Esquivel on 02-24-2023 MCHC (RBC) [Mass/Vol] 33.2 g/dL 32-36 [facility] No Panel InformationOrdered By: Mani Esquivel on 02-24-2023 Estimated Creatinine Clearance Calc 68.80 ml/min [facility] Estimated GFR (MDRD) Amer 93 mL/min >60 [facility] Comment on above: GFR Calc Estimated GFR (MDRD) Non-Af Amer 77 mL/min >60 [facility] Comment on above: Non- GFR Calc Troponin I High Sensitivity 7 pg/mL 3.0-78.0 [facility] Comment on above: Please Note: New Carmen t Units and Gender Specific Reference Ranges. For more information see Policy Stat Procedure [place] High Sensitivity Troponin (TNIH) and attachments. Platelets bldOrdered By: Rashel Esquivel on 02-24-2023 Platelets (Bld) [#/Vol] 234 10*3/uL 150-450 [facility] Serum or plasma albumin nahomy urement (mass/volume)Ordered By: Mani Esquivel on 02-24-2023 Albumin [Mass/Vol] 3.3 g/dL 3.2-5.0 [facility] Serum or plasma calcium nahomy urement (mass/volume)Ordered By: Mani Esquivel on 02-24-2023 Calcium [Mass/Vol] 8.9 mg/dL 8.5-10.1 [facility] Serum or plasma creatinine m easurement (mass/volume)Ordered By: Mani Esquivel on 02-24-2023 Creatinine [Mass/Vol] 1.00 mg/dL 0.70-1.30 [facility] Comment on above: The validity of the calculated GFR & GFRAA in patients over 70 years has not been determined. Clinical correlation is essential. 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 No acute fracture seen. Patient can be reevaluated in 10-14 days if symptoms persist. Co Director: PSCOleg Transcribe Date/Time: Feb 16 2023 3:38P Dictated by : XOCHITL SHIPMAN MD This examination was interpreted and the report reviewed and electronically signed by: XOCHITL SHIPMAN MD on Feb 16 2023 3:40PM [facility] DIVISION OF RADIOLOGY * * *Final [...] lateral malleolus. DIVISION OF RADIOLOGY Provider, Dara Maldonado [facility] - 02/16/2023 * * *Final Report* [...] reevaluated in 10-14 days if symptoms persist. Co Director: BERNIE Transcribe Date/Time: Feb 16 2023 3:38P Dictated by : XOCHITL SHIPMAN MD This examination was interpreted and the report reviewed and electronically signed by: XOCHITL SHIPMAN MD on Feb 16 2023 3:40PM [facility] Study observation (narrative) [place] XR Ankle - left AP and Later al and obliqueOrdered By: Ccf Provider on 02-16-2023 [facility] Absolute lymphocyte countOrd ered By: Dr. Taylor on 11-21-2022 Lymphocytes Auto (Unsp spec) [#/Vol] 2.17 10*3/uL 0.83-4.51 [facility] Basophil percentageOrdered B y: Dr. Taylor on 11-21-2022 Basophils/100 WBC (Bld) 0.5 % 0-1 [facility] Chloride [Moles/Vol] 102 mmol/L 98-107 [facility] Eosinophils/100 WBC (Bld) 3.3 % 0-5 [facility] Glucose [Mass/Vol] 153 mg/dL 74-106 [facility] Comment on above: Fasting Glucose resu lt greater than or equal to 126 mg/dL suggests DIABETES MELLITUS per A.D.A. criteria. Neutrophils (Bld) [#/Vol] 7.9 10*3/uL 2.0-7.7 [facility] Neutrophils/100 WBC (Bld) 65.5 % 47-70 [facility] Potassium [Moles/Vol] 3.9 mmol/L 3.5-5.1 [facility] Sodium [Moles/Vol] 134 mmol/L 136-145 [facility] WBC (Bld) [#/Vol] 12.1 10*3/uL 4.4-11.0 [facility] Blood erythrocytes count (nu mber/volume)Ordered By: Dr. Taylor on 11-21-2022 RBC (Bld) [#/Vol] 5.03 10*6/uL 4.6-6.2 [facility] Blood hemoglobin measurement (mass/volume)Ordered By: Dr. Taylor on 11-21-2022 Hemoglobin (Bld) [Mass/Vol] 14.7 g/dL 13.0-16.5 [facility] Blood lymphocytes/100 leukoc ytesOrdered By: Dr. Taylor on 11-21-2022 Lymphocytes/100 WBC (Bld) 17.9 % 19-41 [facility] Blood monocytes/100 leukocyt esOrdered By: Dr. Taylor on 11-21-2022 Monocytes/100 WBC (Bld) 12.4 % 0-10 [facility] Blood platelet mean volumeOr dered By: Dr. Taylor on 11-21-2022 Platelet mean volume (Bld) [Entitic vol] 11.2 fL 6.2-12.0 [facility] Determination of erythrocyte mean corpuscular volume (MCV)Ordered By: Dr. Taylor on 11-21-2022 MCV (RBC) [Entitic vol] 85.5 fL 80-94 [facility] Glucose Glucometer (BldC) [M ass/Vol]Ordered By: Dr. Kebede on 11-21-2022 Glucose [Mass/Vol] 160 mg/dL 74-106 [facility] Comment on above: MANAGEMENT OF PATIEN T CARE PER NURSING PROTOCOL Hematocrit Auto (Bld) [Volum e fraction]Ordered By: Dr. Taylor on 11-21-2022 Hematocrit (Bld) [Volume fraction] 43.0 % 40-54 [facility] Laboratory - Chemistry and C hemistry - challengeOrdered By: Dr. Stevenson on 11-21-2022 Magnesium [Mass/Vol] 2.0 mg/dL 1.6-2.6 [facility] Laboratory - Chemistry and C hemistry - challengeOrdered By: Dr. Taylor on 11-21-2022 CO2 [Moles/Vol] 24.0 mmol/L 21.0-32.0 [facility] Urea nitrogen/Creatinine [Mass ratio] 20.5 mg/mg 10-20 [facility] Laboratory - Hematology and Cell countsOrdered By: Dr. Taylor on 11-21-2022 Erythrocyte distribution width (RBC) [Entitic vol] 41.1 fL 35.1-43.9 [facility] Erythrocyte distribution width (RBC) [Ratio] 13.2 % 11.6-14.6 [facility] Immature granulocytes/100 WBC (Bld) 0.400 % 0.0-0.9 [facility] Comment on above: IG% - Immature Granu locytes (promyelocytes, myelocytes and metamyelocytes) > 1% indicates that a LEFT SHIFT is Present. MCH (RBC) [Entitic mass] 29.2 pg 27.0-32.0 [facility] Nucleated RBC/100 WBC (Bld) [Ratio] 0 % 0-5 [facility] MCHC Auto (RBC) [Mass/Vol]Or dered By: Dr. Taylor on 11-21-2022 MCHC (RBC) [Mass/Vol] 34.2 g/dL 32-36 [facility] No Panel InformationOrdered By: Dr. Kebede on 11-21-2022 Troponin I High Sensitivity 8 pg/mL 3.0-78.0 [facility] Comment on above: Please Note: New Carmen t Units and Gender Specific Reference Ranges. For more information see Policy Stat Procedure [place] High Sensitivity Troponin (TNIH) and attachments. No Panel InformationOrdered By: Dr. Taylor on 11-21-2022 Estimated Creatinine Clearance Calc 56.40 ml/min [facility] Estimated GFR (MDRD) Amer 74 mL/min >60 [facility] Comment on above: GFR Calc Estimated GFR (MDRD) Non-Af Amer 61 mL/min >60 [facility] Comment on above: Non- GFR Calc Troponin I High Sensitivity 8 pg/mL 3.0-78.0 [facility] Comment on above: Please Note: New Carmen t Units and Gender Specific Reference Ranges. For more information see Policy Stat Procedure [place] High Sensitivity Troponin (TNIH) and attachments. Platelets bldOrdered By: Dr. Taylor on 11-21-2022 Platelets (Bld) [#/Vol] 249 10*3/uL 150-450 [facility] Serum or plasma calcium nahomy urement (mass/volume)Ordered By: Dr. Taylor on 11-21-2022 Calcium [Mass/Vol] 9.0 mg/dL 8.5-10.1 [facility] Serum or plasma creatinine m easurement (mass/volume)Ordered By: Dr. Taylor on 11-21-2022 Creatinine [Mass/Vol] 1.22 mg/dL 0.70-1.30 [facility] Comment on above: The validity of the calculated GFR & GFRAA in patients over 70 years has not been determined. Clinical correlation is essential. Serum or plasma urea nitroge n measurement (mass/volume)Ordered By: Dr. Taylor on 11-21-2022 Urea nitrogen [Mass/Vol] 25 mg/dL 7-18 [facility] Thin prep Papanicolaou smear with manual screeningOrdered By: Dr. Taylor on 11-21-2022 Thin prep Papanicolaou smear with manual screening 8 5-15 [facility] Absolute lymphocyte counton 04-08-2022 Lymphocytes Auto (Unsp spec) [#/Vol] 1.70 10*3/uL 0.83-4.51 [facility] Work Phone: Basophil percentageon 2021 Basophils/100 WBC (Bld) 0.4 % 0-1 [facility] Work Phone: Chloride [Moles/Vol] 103 mmol/L 98-107 [facility] Work Phone: Eosinophils/100 WBC (Bld) 3.1 % 0-5 [facility] Work Phone: Glucose [Mass/Vol] 138 mg/dL 74-106 [facility] Work Phone: Comment on above: Fasting Glucose resu lt greater than or equal to 126 mg/dL suggests DIABETES MELLITUS per A.D.A. criteria. Neutrophils (Bld) [#/Vol] 7.1 10*3/uL 2.0-7.7 [facility] Work Phone: Neutrophils/100 WBC (Bld) 68.6 % 47-70 [facility] Work Phone: Potassium [Moles/Vol] 4.6 mmol/L 3.5-5.1 [facility] Work Phone: [phone] Comment on above: Slight Hemolysis, Re sult may be falsely increased. Sodium [Moles/Vol] 137 mmol/L 136-145 [facility] Work Phone: WBC (Bld) [#/Vol] 10.4 10*3/uL 4.4-11.0 [facility] Work Phone: [phone] Blood erythrocytes count (nu mber/volume)on 04-08-2022 RBC (Bld) [#/Vol] 5.10 10*6/uL 4.6-6.2 [facility] Work Phone: Blood hemoglobin measurement (mass/volume)on 04-08-2022 Hemoglobin (Bld) [Mass/Vol] 14.0 g/dL 13.0-16.5 [facility] Work Phone: Blood lymphocytes/100 leukoc yteson 04-08-2022 Lymphocytes/100 WBC (Bld) 16.4 % 19-41 [facility] Work Phone: Blood monocytes/100 leukocyt eson 04-08-2022 Monocytes/100 WBC (Bld) 11.1 % 0-10 [facility] Work Phone: Blood platelet mean volumeon 04-08-2022 Platelet mean volume (Bld) [Entitic vol] 11.5 fL 6.2-12.0 [facility] Work Phone: Determination of erythrocyte mean corpuscular volume (MCV)on 04-08-2022 MCV (RBC) [Entitic vol] 85.1 fL 80-94 [facility] Work Phone: [phone] Hematocrit Auto (Bld) [Volum e fraction]on 04-08-2022 Hematocrit (Bld) [Volume fraction] 43.4 % 40-54 [facility] Work Phone: [phone] Laboratory - Chemistry and C hemistry - challengeon 04-08-2022 CO2 [Moles/Vol] 26.0 mmol/L 21.0-32.0 [facility] Work Phone: [phone] Urea nitrogen/Creatinine [Mass ratio] 17.2 mg/mg 10-20 [facility] Work Phone: [phone] Laboratory - Hematology and Cell countson 04-08-2022 Erythrocyte distribution width (RBC) [Entitic vol] 45.3 fL 35.1-43.9 [facility] Work Phone: [phone] Erythrocyte distribution width (RBC) [Ratio] 14.5 % 11.6-14.6 [facility] Work Phone: [phone] Immature granulocytes/100 WBC (Bld) 0.400 % 0.0-0.9 [facility] Work Phone: Comment on above: IG% - Immature Granu locytes (promyelocytes, myelocytes and metamyelocytes) > 1% indicates that a LEFT SHIFT is Present. MCH (RBC) [Entitic mass] 27.5 pg 27.0-32.0 [facility] Work Phone: [phone] Nucleated RBC/100 WBC (Bld) [Ratio] 0 % 0-5 [facility] Work Phone: [phone] MCHC Auto (RBC) [Mass/Vol]on 04-08-2022 MCHC (RBC) [Mass/Vol] 32.3 g/dL 32-36 [facility] Work Phone: No Panel Informationon 04-08 Troponin I High Sensitivity 9 pg/mL 3.0-78.0 [facility] Work Phone: Comment on above: Please Note: New Carmen t Units and Gender Specific Reference Ranges. For more information see Policy Stat Procedure [place] High Sensitivity Troponin (TNIH) and attachments. Estimated Creatinine Clearance Calc 59.31 ml/min [facility] Work Phone: Estimated GFR (MDRD) Amer 78 mL/min >60 [facility] Work Phone: Comment on above: GFR Calc Estimated GFR (MDRD) Non-Af Amer 65 mL/min >60 [facility] Work Phone: Comment on above: Non- GFR Calc Platelets bldon 04-08-2022 Platelets (Bld) [#/Vol] 247 10*3/uL 150-450 [facility] Work Phone: Serum or plasma calcium nahomy urement (mass/volume)on 04-08-2022 Calcium [Mass/Vol] 9.2 mg/dL 8.5-10.1 [facility] Work Phone: Serum or plasma creatinine m easurement (mass/volume)on 04-08-2022 Creatinine [Mass/Vol] 1.16 mg/dL 0.70-1.30 [facility] Work Phone: Comment on above: The validity of the calculated GFR & GFRAA in patients over 70 years has not been determined. Clinical correlation is essential. Serum or plasma urea nitroge n measurement (mass/volume)on 04-08-2022 Urea nitrogen [Mass/Vol] 20 mg/dL 7-18 [facility] Work Phone: Thin prep Papanicolaou smear with manual screeningon 04-08-2022 Thin prep Papanicolaou smear with manual screening 8 5-15 [facility] Work Phone: Basophil percentageon 2021 Chloride [Moles/Vol] 104 mmol/L 98-107 [facility] Work Phone: Glucose [Mass/Vol] 197 mg/dL 74-106 [facility] Work Phone: Comment on above: Fasting Glucose resu lt greater than or equal to 126 mg/dL suggests DIABETES MELLITUS per A.D.A. criteria. Potassium [Moles/Vol] 3.9 mmol/L 3.5-5.1 [facility] Work Phone: Sodium [Moles/Vol] 136 mmol/L 136-145 [facility] Work Phone: Laboratory - Chemistry and C hemistry - challengeon 02-07-2022 CO2 [Moles/Vol] 25.0 mmol/L 21.0-32.0 [facility] Work Phone: Urea nitrogen/Creatinine [Mass ratio] 16.8 mg/mg 10-20 [facility] Work Phone: No Panel Informationon 02-07 Estimated GFR (MDRD) Amer 86 mL/min >60 [facility] Work Phone: Comment on above: GFR Calc Estimated GFR (MDRD) Non-Af Amer 71 mL/min >60 [facility] Work Phone: Comment on above: Non- GFR Calc Serum or plasma calcium nahomy urement (mass/volume)on 02-07-2022 Calcium [Mass/Vol] 8.8 mg/dL 8.5-10.1 [facility] Work Phone: Serum or plasma creatinine m easurement (mass/volume)on 02-07-2022 Creatinine [Mass/Vol] 1.07 mg/dL 0.70-1.30 [facility] Work Phone: Comment on above: The validity of the calculated GFR & GFRAA in patients over 70 years has not been determined. Clinical correlation is essential. Serum or plasma urea nitroge n measurement (mass/volume)on 02-07-2022 Urea nitrogen [Mass/Vol] 18 mg/dL 7-18 [facility] Work Phone: Thin prep Papanicolaou smear with manual screeningon 02-07-2022 Thin prep Papanicolaou smear with manual screening 7 5-15 [facility] Work Phone: XR Chest PA and Lateralon IMPRESSION: No acute radiographic abnormality. Co Director: BERNIE Transcribe Date/Time: Jul 13 2021 10:18A Dictated by : SILVIO WORTHY MD This examination was interpreted and the report reviewed and electronically signed by: SILVIO WORTHY MD on Jul 13 2021 10:19AM [facility] DIVISION OF RADIOLOGY * * *Final [...] spine. IMPRESSION IMPRESSION: No acute radiographic abnormality. Co Director: PSCB Transcribe Date/Time: Jul 13 2021 10:18A Dictated by : SILVIO WORTHY MD This examination was interpreted and the report reviewed and electronically signed by: SILVIO WORTHY MD on Jul 13 2021 10:19AM EST [facility] Radiology Study observation (narrative) [facility] XR Chest PA and LateralOrder ed By: Ccf Provider on 07-13-2021 [facility] XR Ribs - right Views and est PAon 05-25-2021 IMPRESSION: No acute process is seen. Co Director: PSCB Transcribe Date/Time: May 25 2021 4:16P Dictated by : SHAR ESTEBAN MD This examination was interpreted and the report reviewed and electronically signed by: SHAR ESTEBAN MD on May 25 2021 4:18PM [facility] DIVISION OF RADIOLOGY * * *Final [...] spine appear stable. DIVISION OF RADIOLOGY Provider, [facility] - 05/25/2021 * * *Final Report* * [...] IMPRESSION IMPRESSION: No acute process is seen. Co Director: BERNIE Transcribe Date/Time: May 25 2021 4:16P Dictated by : SHAR ESTEBAN MD This examination was interpreted and the report reviewed and electronically signed by: SHAR ESTEBAN MD on May 25 2021 4:18PM EST [facility] Radiology Study observation (narrative) [facility] XR Ribs - right Views and Ch est PAOrdered By: Ccf Provider on 05-25-2021 [facility] XR Chest PA and Lateralon IMPRESSION: No acute radiographic abnormality is evident. Co Director: BERNIE Transcribe Date/Time: Jan 24 2021 2:44P [...] thoracic spine. DIVISION OF RADIOLOGY Provider, Dara garcia [place] - 01/24/2021 * * *Final Report* * [...] IMPRESSION: No acute radiographic abnormality is evident. Co Director: PSCB Transcribe Date/Time: Jan 24 2021 2:44P Dictated by : ALY SABA MD This examination was interpreted and the report reviewed and electronically signed by: ALY SABA MD on Jan 24 2021 2:47PM EST [facility] Radiology Study observation (narrative) Armando brannon [facility] XR Chest PA and LateralOrder ed By: Ccf Provider on 01-24-2021 [facility] Vital Signs Date Time Vital Sign Value Performing Clinician Facility 06-11-2025 11:54-0400 Diastolic blood pressure 60 mm[Hg] Dr. Mathieu Virgen MD Work Phone: [phone] [place] [address] 06-11-2025 11:54-0400 Systolic blood pressure 100 mm[Hg] Dr. Mathieu Virgen MD Work Phone: 0(334)[phone] [place] [address] 06-11-2025 11:18-0400 Body height 185.[address] Mathieu Virgen MD Work Phone: [phone] [place] [address] 06-11-2025 11:18-0400 Body mass index (BMI) [Ratio] 33 kg/m2 Dr. Mathieu Virgen MD Work Phone: [phone])489-413295 [place] [address] 06-11-2025 11:18-0400 Body weight 113.[address] Mathieu Virgen MD Work Phone: 8(488)117-700695 [place] [address] 06-11-2025 11:18-0400 Heart rate 74 /min Dr. Mathieu Virgen MD Work Phone: [phone])847-313195 [place] [address] 06-11-2025 11:18-0400 Respiratory rate 20 /min Dr. Mathieu Virgen MD Work Phone: [phone])018-179603 [place] [address] 06-11-2025 11:18-0400 SaO2% (BldA) [Mass fraction] 94 % Dr. Mathieu Virgen MD Work Phone: 3(530)813-884703 [place] [address] 06-01-2025 15:54-0400 Body temperature 97.9 [degF] Dr. Mathieu Virgen MD Work Phone: 2(512)590-018703 [place] [address] 06-01-2025 15:54-0400 Diastolic blood pressure 66 mm[Hg] Dr. Mathieu Virgen MD Work Phone: 1(327)580-802203 [place] [address] 06-01-2025 15:54-0400 Heart rate 79 /min Dr. Mathieu Virgen MD Work Phone: 6(438)641-598403 [place] [address] 06-01-2025 15:54-0400 Respiratory rate 16 /min Dr. Mathieu Virgen MD Work Phone: 3(369)722-180403 [place] [address] 06-01-2025 15:54-0400 SaO2% (BldA) [Mass fraction] 93 % Dr. Mathieu Virgen MD Work Phone: 0(428)424-538403 [place] [address] 06-01-2025 15:54-0400 Systolic blood pressure 116 mm[Hg] Dr. Mathieu Virgen MD Work Phone: 5(509)423-704103 [place] [address] 06-01-2025 10:53-0400 Body height 185.[address] Mathieu Virgen MD Work Phone: 5(055)087-594603 [place] [address] 06-01-2025 10:53-0400 Body weight [address] Mathieu Virgen MD Work Phone: 7(228)140-809603 [place] [address] 06-01-2025 02:30-0400 Inhaled oxygen flow rate 2 L/min Dr. Mathieu Virgen MD Work Phone: 1(836)311-403603 [place] [address] 05-31-2025 17:02-0400 Body mass index (BMI) [Ratio] 33.1 kg/m2 Dr. Mathieu Virgen MD Work Phone: 5([phone])044-578603 [place] [address] 05-31-2025 16:24-0400 Diastolic blood pressure 83 mm[Hg] Dr. Mathieu Virgen MD Work Phone: 2([phone])776-749003 [place] [address] 05-31-2025 16:24-0400 Heart rate 78 /min Dr. Mathieu Virgen MD Work Phone: 1(483)[phone] [place] [address] 05-31-2025 16:24-0400 Respiratory rate 19 /min Dr. Mathieu Virgen MD Work Phone: 5(072)259-386203 [place] [address] 05-31-2025 16:24-0400 SaO2% (BldA) [Mass fraction] 97 % Dr. Mathieu Virgen MD Work Phone: 2(098)324-785003 [place] [address] 05-31-2025 16:24-0400 Systolic blood pressure 135 mm[Hg] Dr. Mathieu Viregn MD Work Phone: 1([phone])844-795203 [place] [address] 05-31-2025 15:19-0400 Body temperature 97.9 [degF] Dr. Mathieu Virgen MD Work Phone: 6(908)638-820203 [place] [address] 05-31-2025 11:08-0400 Body height 185.[address] Mathieu Virgen MD Work Phone: 6(753)570-264503 [place] [address] 05-31-2025 11:08-0400 Body mass index (BMI) [Ratio] 27 kg/m2 Dr. Mathieu Virgen MD Work Phone: 1(882)796-098303 [place] [address] 05-31-2025 11:08-0400 Body weight [address] Mathieu Virgen MD Work Phone: 1(786)835-323003 [place] [address] 05-04-2025 10:46-0400 Diastolic blood pressure 62 mm[Hg] Dr. Mathieu Viregn MD Work Phone: 7(262)721-740303 [place] [address] 05-04-2025 10:46-0400 Systolic blood pressure 106 mm[Hg] Dr. Mathieu Virgen MD Work Phone: 8(780)712-127303 [place] [address] 05-04-2025 10:13-0400 Body height 185.[address] Mathieu Virgen MD Work Phone: 9(502)115-096803 [place] [address] 05-04-2025 07:28-0400 Body mass index (BMI) [Ratio] 32 kg/m2 Dr. Mathieu Virgen MD Work Phone: 7(867)255-222203 [place] [address] 05-04-2025 07:28-0400 Body weight 110.[address] Mathieu Virgen MD Work Phone: 3(735)968-586903 [place] [address] 05-04-2025 07:28-0400 Heart rate 72 /min Dr. Mathieu Virgen MD Work Phone: 9(670)805-956803 [place] [address] 05-04-2025 07:28-0400 SaO2% (BldA) [Mass fraction] 96 % Dr. Mathieu Virgen MD Work Phone: 7(286)413-543703 [place] [address] 04-30-2025 16:33-0400 Body temperature 98.4 [degF] Dr. Mathieu Virgen MD Work Phone: 8(340)807-999003 [place] [address] 04-30-2025 16:33-0400 Diastolic blood pressure 73 mm[Hg] Dr. Mathieu Virgen MD Work Phone: 2(681)134-923003 [place] [address] 04-30-2025 16:33-0400 Heart rate 64 /min Dr. Mathieu Virgen MD Work Phone: 0(968)899-969803 [place] [address] 04-30-2025 16:33-0400 Respiratory rate 16 /min Dr. Mathieu Virgen MD Work Phone: 8(706)795-245403 [place] [address] 04-30-2025 16:33-0400 SaO2% (BldA) [Mass fraction] 98 % Dr. Mathieu Virgen MD Work Phone: 6(118)464-231303 [place] [address] 04-30-2025 16:33-0400 Systolic blood pressure 125 mm[Hg] Dr. Mathieu Virgen MD Work Phone: 1(559)428-366603 [place] [address] 04-30-2025 07:15-0400 Inhaled oxygen flow rate 2 L/min Dr. Mathieu Virgen MD Work Phone: 1(134)975-140003 [place] [address] 04-30-2025 03:23-0400 Body mass index (BMI) [Ratio] 33.2 kg/m2 Dr. Mathieu Virgen MD Work Phone: 3(097)129-393803 [place] [address] 04-30-2025 03:23-0400 Body weight 114.[address] Mathieu Virgen MD Work Phone: 9(500)783-451903 [place] [address] 04-29-2025 21:47-0400 Body temperature 97 [degF] Dr. Mathieu Virgen MD Work Phone: 9(538)161-960203 [place] [address] 04-29-2025 21:47-0400 Diastolic blood pressure 71 mm[Hg] Dr. Mathieu Virgen MD Work Phone: 4(891)814-293403 [place] [address] 04-29-2025 21:47-0400 Heart rate 71 /min Dr. Mathieu Virgen MD Work Phone: 1(433)972-989403 [place] [address] 04-29-2025 21:47-0400 Respiratory rate 22 /min Dr. Mathieu Virgen MD Work Phone: 9(482)639-933703 [place] [address] 04-29-2025 21:47-0400 SaO2% (BldA) [Mass fraction] 98 % Dr. Mathieu Virgen MD Work Phone: 3(387)785-538903 [place] [address] 04-29-2025 21:47-0400 Systolic blood pressure 138 mm[Hg] Dr. Mathieu Virgen MD Work Phone: 6(307)845-731703 [place] [address] 04-29-2025 21:43-0400 Body height 185.[address] Mathieu Virgen MD Work Phone: 2(004)658-137603 [place] [address] 04-29-2025 17:28-0400 Inhaled oxygen flow rate 2 L/min Dr. Mathieu Virgen MD Work Phone: 1(937)456-812103 [place] [address] 04-29-2025 15:42-0400 Body mass index (BMI) [Ratio] 33.5 kg/m2 Dr. Mathieu Virgen MD Work Phone: 5(393)395-380703 [place] [address] 04-29-2025 15:42-0400 Body weight 115.[address] Mathieu Virgen MD Work Phone: 2(083)110-487703 [place] [address] 04-29-2025 15:29-0400 Body height 185.[address] Mathieu Virgen MD Work Phone: 3(758)934-592703 [place] [address] 04-08-2025 07:17-0400 Body mass index (BMI) [Ratio] 33.1 kg/m2 Dr. Mathieu Virgen MD Work Phone: 3(333)608-077603 [place] [address] 04-08-2025 07:17-0400 Body temperature 97.2 [degF] Dr. Mathieu Virgen MD Work Phone: 2(635)231-402003 [place] [address] 04-08-2025 07:17-0400 Body weight 113.[address] Mathieu Virgen MD Work Phone: 0(215)513-939103 [place] [address] 04-08-2025 07:17-0400 Diastolic blood pressure 59 mm[Hg] Dr. Mathieu Virgen MD Work Phone: 4(689)139-508203 [place] [address] 04-08-2025 07:17-0400 Heart rate 78 /min Dr. Mathieu Virgen MD Work Phone: 3(028)567-465203 [place] [address] 04-08-2025 07:17-0400 Respiratory rate 20 /min Dr. Mathieu Virgen MD Work Phone: 2(386)119-837203 [place] [address] 04-08-2025 07:17-0400 SaO2% (BldA) [Mass fraction] 95 % Dr. Mathieu Virgen MD Work Phone: 3(507)482-300903 [place] [address] 04-08-2025 07:17-0400 Systolic blood pressure 114 mm[Hg] Dr. Mathieu Virgen MD Work Phone: 2(835)101-411103 [place] [address] 02-26-2025 14:00-0400 Body height 185.[address] Mathieu Virgen MD Work Phone: 0(694)229-751103 [place] [address] 02-26-2025 14:00-0400 Body weight 119.[address] Mathieu Virgen MD Work Phone: 8(721)491-422503 [place] [address] 02-26-2025 14:00-0400 Heart rate 82 /min Dr. Mathieu Virgen MD Work Phone: 2(174)578-778795 [place] [address] 02-26-2025 14:00-0400 SaO2% (BldA) [Mass fraction] 94 % Dr. Mathieu Virgen MD Work Phone: [facility] 01-26-2025 14:24-0400 Body mass index (BMI) [Ratio] 35.49 kg/m2 Mathieu Virgen MD Work Phone: [facility] 01-26-2025 14:24-0400 Body weight 122.02 kg Mathieu Virgen MD Work Phone: [facility] 01-26-2025 14:24-0400 Diastolic blood pressure 64 mm[Hg] Mathieu Virgen MD Work Phone: [facility] 01-26-2025 14:24-0400 Heart rate 82 /min Mathieu Virgen MD Work Phone: [facility] 01-26-2025 14:24-0400 SaO2% (BldA) [Mass fraction] 94 % Mathieu Virgen MD Work Phone: [facility] 01-26-2025 14:24-0400 Systolic blood pressure 108 mm[Hg] Mathieu Virgen MD Work Phone: [facility] 01-26-2025 09:39-0400 Body height 185.[address] Mathieu Virgen MD Work Phone: [facility] 01-26-2025 09:39-0400 Body mass index (BMI) [Ratio] 35.2 kg/m2 Dr. Mathieu Virgen MD Work Phone: [facility] 01-26-2025 09:39-0400 Body weight 121.[address] Mathieu Virgen MD Work Phone: [facility] 01-26-2025 09:39-0400 Diastolic blood pressure 73 mm[Hg] Dr. Mathieu Virgen MD Work Phone: 3(762)006-259295 [place] [address] 01-26-2025 09:39-0400 Heart rate 80 /min Dr. Mathieu Virgen MD Work Phone: [facility] 01-26-2025 09:39-0400 Respiratory rate 20 /min Dr. Mathieu Virgen MD Work Phone: [facility] 01-26-2025 09:39-0400 Systolic blood pressure 141 mm[Hg] Dr. Mathieu Virgen MD Work Phone: [facility] 01-21-2025 08:57-0400 Body mass index (BMI) [Ratio] 35.4 kg/m2 Dr. Mathieu iVrgen MD Work Phone: 3(703)006-339303 [place] [address] 01-21-2025 08:57-0400 Body temperature 97.7 [degF] Dr. Mathieu Virgen MD Work Phone: 1(341)148-071803 [place] [address] 01-21-2025 08:57-0400 Body weight 122.[address] Mathieu Virgen MD Work Phone: 8(356)425-244803 [place] [address] 01-21-2025 08:57-0400 Diastolic blood pressure 66 mm[Hg] Dr. Mathieu Virgen MD Work Phone: 4(481)901-463903 [place] [address] 01-21-2025 08:57-0400 Heart rate 75 /min Dr. Mathieu Virgen MD Work Phone: 6(634)523-442603 [place] [address] 01-21-2025 08:57-0400 Respiratory rate 20 /min Dr. Mathieu Virgen MD Work Phone: 5(245)231-374703 [place] [address] 01-21-2025 08:57-0400 SaO2% (BldA) [Mass fraction] 94 % Dr. Mathieu Virgen MD Work Phone: 4(896)475-269803 [place] [address] 01-21-2025 08:57-0400 Systolic blood pressure 124 mm[Hg] Dr. Mathieu Virgen MD Work Phone: 9(415)310-711903 [place] [address] 01-20-2025 03:54-0400 Body temperature 98.1 [degF] Dr. Mathieu Virgen MD Work Phone: 0(750)524-676203 [place] [address] 01-20-2025 03:54-0400 Diastolic blood pressure 59 mm[Hg] Dr. Mathieu Virgen MD Work Phone: 0(983)293-665303 [place] [address] 01-20-2025 03:54-0400 Heart rate 70 /min Dr. Mathieu Virgen MD Work Phone: 1(046)018-397803 [place] [address] 01-20-2025 03:54-0400 Respiratory rate 18 /min Dr. Mathieu Virgen MD Work Phone: 4(044)158-443803 [place] [address] 01-20-2025 03:54-0400 SaO2% (BldA) [Mass fraction] 95 % Dr. Mathieu Virgen MD Work Phone: 1(196)841-627903 [place] [address] 01-20-2025 03:54-0400 Systolic blood pressure 135 mm[Hg] Dr. Mathieu Virgen MD Work Phone: [facility] 01-19-2025 22:43-0400 Body mass index (BMI) [Ratio] 35.4 kg/m2 Dr. Mathieu Virgen MD Work Phone: [facility] 01-19-2025 22:43-0400 Body weight 122.[address] Mathieu Virgen MD Work Phone: [facility] 01-12-2025 16:57-0400 Body mass index (BMI) [Ratio] 35.36 kg/m2 Mathieu Virgen MD Work Phone: [facility] 01-12-2025 16:57-0400 Body weight 121.56 kg Mathieu Virgen MD Work Phone: [facility] 01-12-2025 16:57-0400 Diastolic blood pressure 62 mm[Hg] Mathieu Virgen MD Work Phone: [facility] 01-12-2025 16:57-0400 Heart rate 77 /min Mathieu Virgen MD Work Phone: [facility] 01-12-2025 16:57-0400 SaO2% (BldA) [Mass fraction] 93 % Mathieu Virgen MD Work Phone: [facility] 01-12-2025 16:57-0400 Systolic blood pressure 112 mm[Hg] Mathieu Virgen MD Work Phone: [facility] 12-11-2024 13:10-0400 Body mass index (BMI) [Ratio] 36 kg/m2 Dr. Mathieu Virgen MD Work Phone: [facility] 12-11-2024 13:10-0400 Body weight 123.[address] Mathieu Virgen MD Work Phone: [facility] 12-11-2024 13:10-0400 Diastolic blood pressure 58 mm[Hg] Dr. Mathieu Virgen MD Work Phone: [facility] 12-11-2024 13:10-0400 Heart rate 72 /min Dr. Mathieu Virgen MD Work Phone: [facility] 12-11-2024 13:10-0400 Respiratory rate 18 /min Dr. Mathieu Virgen MD Work Phone: [facility] 12-11-2024 13:10-0400 Systolic blood pressure 113 mm[Hg] Dr. Mathieu Virgen MD Work Phone: [facility] 12-02-2024 15:36-0400 Body height 185.4 cm Mathieu Virgen MD Work Phone: [facility] 12-02-2024 15:36-0400 Body mass index (BMI) [Ratio] 36.02 kg/m2 Mathieu Virgen MD Work Phone: [facility] 12-02-2024 15:36-0400 Body weight 123.83 kg Mathieu Virgen MD Work Phone: [facility] 12-02-2024 15:36-0400 Diastolic blood pressure 54 mm[Hg] Mathieu Virgen MD Work Phone: [facility] 12-02-2024 15:36-0400 Heart rate 78 /min Mathieu Virgen MD Work Phone: [facility] 12-02-2024 15:36-0400 SaO2% (BldA) [Mass fraction] 95 % Mathieu Virgen MD Work Phone: [facility] 12-02-2024 15:36-0400 Systolic blood pressure 92 mm[Hg] Mathieu Virgen MD Work Phone: [facility] 11-03-2024 02:21-0500 Body temperature 98 [degF] Dr. Mathieu Virgen MD Work Phone: [facility] 11-03-2024 02:21-0500 Diastolic blood pressure 72 mm[Hg] Dr. Mathieu Virgen MD Work Phone: [facility] 11-03-2024 02:21-0500 Heart rate 72 /min Dr. Mathieu Virgen MD Work Phone: [facility] 11-03-2024 02:21-0500 Respiratory rate 18 /min Dr. Mathieu Virgen MD Work Phone: [facility] 11-03-2024 02:21-0500 SaO2% (BldA) [Mass fraction] 96 % Dr. Mathieu Virgen MD Work Phone: [facility] 11-03-2024 02:21-0500 Systolic blood pressure 121 mm[Hg] Dr. Mathieu Virgen MD Work Phone: [facility] 11-03-2024 00:05-0500 Body height 185.[address] Mathieu Virgen MD Work Phone: [facility] 11-03-2024 00:05-0500 Body mass index (BMI) [Ratio] 35.9 kg/m2 Dr. Mathieu Virgen MD Work Phone: [facility] 11-03-2024 00:05-0500 Body weight 123.[address] Mathieu Virgen MD Work Phone: [facility] 10-31-2024 14:40-0500 Body mass index (BMI) [Ratio] 36.15 kg/m2 Sukh Hall APRN.[employer] ENGINEER Work Phone: [facility] 10-31-2024 14:40-0500 Body weight 124.29 kg Sukh Hall APRN.[employer] ENGINEER Work Phone: [facility] 10-31-2024 14:40-0500 Diastolic blood pressure 68 mm[Hg] Sukh Hall APRN.[employer] ENGINEER Work Phone: [facility] 10-31-2024 14:40-0500 Heart rate 78 /min Sukh Hall APRN.[employer] ENGINEER Work Phone: [facility] 10-31-2024 14:40-0500 Respiratory rate 18 /min Sukh Hall APRN.[employer] ENGINEER Work Phone: [facility] 10-31-2024 14:40-0500 SaO2% (BldA) [Mass fraction] 97 % Sukh Hall APRN.[employer]S ENGINEER Work Phone: 7(750)815-547277 [place] [address] 10-31-2024 14:40-0500 Systolic blood pressure 114 mm[Hg] Sukh Hall [employer]S ENGINEER Work Phone: [facility] 09-23-2024 15:27-0500 Body mass index (BMI) [Ratio] 37.2 kg/m2 Dr. Mathieu Virgen MD Work Phone: 8(888)562-234795 [place] [address] 09-23-2024 15:27-0500 Body weight 127.[address] Mathieu Virgen MD Work Phone: 1(262)305-640803 [place] [address] 09-23-2024 15:27-0500 Diastolic blood pressure 80 mm[Hg] Dr. Mathieu Virgen MD Work Phone: 0(986)060-629103 [place] [address] 09-23-2024 15:27-0500 Heart rate 74 /min Dr. Mathieu Virgen MD Work Phone: 7(980)010-814303 [place] [address] 09-23-2024 15:27-0500 Respiratory rate 18 /min Dr. Mathieu Virgen MD Work Phone: 6(022)465-084803 [place] [address] 09-23-2024 15:27-0500 SaO2% (BldA) [Mass fraction] 94 % Dr. Mathieu Virgen MD Work Phone: 3(104)207-493203 [place] [address] 09-23-2024 15:27-0500 Systolic blood pressure 162 mm[Hg] Dr. Mathieu Virgen MD Work Phone: 4(660)112-150895 [place] [address] 09-23-2024 14:42-0500 Body mass index (BMI) [Ratio] 37.21 kg/m2 Denisha Shepard [employer] ENGINEER Work Phone: [facility] 09-23-2024 14:42-0500 Body weight 127.91 kg Denisha Shepard [employer] ENGINEER Work Phone: [facility] 09-23-2024 14:42-0500 Diastolic blood pressure 68 mm[Hg] Denisha Shepard [employer]S ENGINEER Work Phone: [facility] 09-23-2024 14:42-0500 Heart rate 79 /min Denisha Shepard [employer] ENGINEER Work Phone: 3(577)870-439277 [place] [address] 09-23-2024 14:42-0500 Respiratory rate 16 /min Denisha Shepard [employer]S ENGINEER Work Phone: 9(291)741-468777 [place] [address] 09-23-2024 14:42-0500 SaO2% (BldA) [Mass fraction] 99 % Denisha Shepard [employer] ENGINEER Work Phone: 1(623)467-750377 [place] [address] 09-23-2024 14:42-0500 Systolic blood pressure 118 mm[Hg] Denisha Shepard [employer]S ENGINEER Work Phone: 8(518)700-444877 [place] [address] 09-20-2024 19:33-0500 Body temperature 98.2 [degF] Dr. Mathieu Virgen MD Work Phone: 6(070)628-003403 [place] [address] 09-20-2024 19:33-0500 Diastolic blood pressure 72 mm[Hg] Dr. Mathieu Virgen MD Work Phone: 3(910)312-777403 [place] [address] 09-20-2024 19:33-0500 Heart rate 79 /min Dr. Mathieu Virgen MD Work Phone: 2(922)148-008203 [place] [address] 09-20-2024 19:33-0500 Respiratory rate 19 /min Dr. Mathieu Virgen MD Work Phone: 6(567)942-632803 [place] [address] 09-20-2024 19:33-0500 SaO2% (BldA) [Mass fraction] 96 % Dr. Mathieu Virgen MD Work Phone: 5(046)979-999703 [place] [address] 09-20-2024 19:33-0500 Systolic blood pressure 118 mm[Hg] Dr. Mathieu Virgen MD Work Phone: 3(364)941-187803 [place] [address] 09-20-2024 17:00-0500 Inhaled oxygen flow rate 2 L/min Dr. Mathieu Virgen MD Work Phone: 0(199)078-170703 [place] [address] 09-20-2024 15:46-0500 Body mass index (BMI) [Ratio] 37.8 kg/m2 Dr. Mathieu Virgen MD Work Phone: 8(832)415-933003 [place] [address] 09-20-2024 15:46-0500 Body weight 130.[address] Mathieu Virgen MD Work Phone: 8(327)837-585703 [place] [address] 09-03-2024 15:19-0500 Body mass index (BMI) [Ratio] 37.5 kg/m2 Dr. Mathieu Virgen MD Work Phone: 5(711)423-647603 [place] [address] 09-03-2024 15:19-0500 Body weight 129.[address] Mathieu Virgen MD Work Phone: 7(187)550-205703 [place] [address] 09-03-2024 15:19-0500 Diastolic blood pressure 69 mm[Hg] Dr. Mathieu Virgen MD Work Phone: 4(663)153-476603 [place] [address] 09-03-2024 15:19-0500 Heart rate 76 /min Dr. Mathieu Virgen MD Work Phone: 1(531)414-069803 [place] [address] 09-03-2024 15:19-0500 Inhaled oxygen flow rate 2 L/min Dr. Mathieu Virgen MD Work Phone: 4(812)009-385203 [place] [address] 09-03-2024 15:19-0500 Respiratory rate 18 /min Dr. Mathieu Virgen MD Work Phone: 7(360)257-317603 [place] [address] 09-03-2024 15:19-0500 Systolic blood pressure 109 mm[Hg] Dr. Mathieu Virgen MD Work Phone: 4(918)745-534803 [place] [address] 09-01-2024 07:39-0500 Body temperature 98.2 [degF] Dr. Mathieu Virgen MD Work Phone: 0(554)094-771303 [place] [address] 09-01-2024 07:39-0500 Diastolic blood pressure 78 mm[Hg] Dr. Mathieu Virgen MD Work Phone: 9(937)735-014803 [place] [address] 09-01-2024 07:39-0500 Heart rate 65 /min Dr. Mathieu Virgen MD Work Phone: 4(690)341-855003 [place] [address] 09-01-2024 07:39-0500 Respiratory rate 18 /min Dr. Mathieu Virgen MD Work Phone: 5(620)820-710303 [place] [address] 09-01-2024 07:39-0500 SaO2% (BldA) [Mass fraction] 97 % Dr. Mathieu Virgen MD Work Phone: 7(714)536-318503 [place] [address] 09-01-2024 07:39-0500 Systolic blood pressure 101 mm[Hg] Dr. Mathieu Virgen MD Work Phone: 0(990)104-460503 [place] [address] 09-01-2024 06:00-0500 Inhaled oxygen flow rate 2 L/min Dr. Mathieu Virgen MD Work Phone: 1(889)707-756103 [place] [address] 09-01-2024 04:38-0500 Body mass index (BMI) [Ratio] 38.7 kg/m2 Dr. Mathieu Virgen MD Work Phone: 8(921)470-190903 [place] [address] 09-01-2024 04:38-0500 Body weight [address] Mathieu Virgen MD Work Phone: 9(749)363-765803 [place] [address] 08-13-2024 13:17-0500 Body mass index (BMI) [Ratio] 38.1 kg/m2 Dr. Mathieu Virgen MD Work Phone: 2(756)019-521303 [place] [address] 08-13-2024 13:17-0500 Body weight 131.[address] Mathieu Virgen MD Work Phone: 9(580)285-856603 [place] [address] 08-13-2024 13:17-0500 Diastolic blood pressure 57 mm[Hg] Dr. Mathieu Virgen MD Work Phone: 9(563)212-470303 [place] [address] 08-13-2024 13:17-0500 Heart rate 73 /min Dr. Mathieu Virgen MD Work Phone: 4(453)882-043203 [place] [address] 08-13-2024 13:17-0500 Respiratory rate 16 /min Dr. Mathieu Virgen MD Work Phone: 7(336)123-234803 [place] [address] 08-13-2024 13:17-0500 Systolic blood pressure 99 mm[Hg] Dr. Mathieu Virgen MD Work Phone: 1(436)392-158903 [place] [address] 07-29-2024 12:14-0500 Diastolic blood pressure 50 mm[Hg] Julianna Hood [employer]S ENGINEER Work Phone: 6(132)185-372177 [place] [address] 07-29-2024 12:14-0500 Systolic blood pressure 104 mm[Hg] Julianna Hood [employer]S ENGINEER Work Phone: 7(148)868-825077 [place] [address] 07-29-2024 11:29-0500 Body mass index (BMI) [Ratio] 39.32 kg/m2 Julianna Suppan [employer]S ENGINEER Work Phone: [facility] 07-29-2024 11:29-0500 Body weight 135.17 kg Julianna Suppan [employer]S ENGINEER Work Phone: [facility] 07-29-2024 11:29-0500 Heart rate 70 /min Julianna Suppan [employer]S ENGINEER Work Phone: [facility] 07-29-2024 11:29-0500 Respiratory rate 24 /min Julianna Suppan [employer]S ENGINEER Work Phone: [facility] 07-29-2024 11:29-0500 SaO2% (BldA) [Mass fraction] 92 % Julianna Suppan [employer]S ENGINEER Work Phone: [facility] Comment on above: 2 liters 06-23-2024 14:37-0400 Body mass index (BMI) [Ratio] 39.56 kg/m2 Abril Simin [employer]S ENGINEER Work Phone: [facility] 06-23-2024 14:37-0400 Body weight 136 kg Abril Simin [employer]S ENGINEER Work Phone: [facility] 06-23-2024 14:37-0400 Diastolic blood pressure 77 mm[Hg] Abril Simin [employer]S ENGINEER Work Phone: [facility] 06-23-2024 14:37-0400 Heart rate 82 /min Abril Simin [employer]S ENGINEER Work Phone: [facility] 06-23-2024 14:37-0400 Respiratory rate 18 /min Abril Simin [employer]S ENGINEER Work Phone: [facility] 06-23-2024 14:37-0400 SaO2% (BldA) [Mass fraction] 95 % Abril Simin [employer]S ENGINEER Work Phone: [facility] 06-23-2024 14:37-0400 Systolic blood pressure 155 mm[Hg] Abril Duval [employer]S ENGINEER Work Phone: [facility] 06-20-2024 15:38-0400 Body height 185.4 cm Mathieu Virgen MD Work Phone: [facility] 06-20-2024 15:38-0400 Body mass index (BMI) [Ratio] 39.76 kg/m2 Mathieu Virgen MD Work Phone: [facility] 06-20-2024 15:38-0400 Body weight 136.71 kg Mathieu Virgen MD Work Phone: [facility] 06-20-2024 15:38-0400 Diastolic blood pressure 56 mm[Hg] Mathieu Virgen MD Work Phone: [facility] 06-20-2024 15:38-0400 Heart rate 80 /min Mathieu Virgen MD Work Phone: [facility] 06-20-2024 15:38-0400 SaO2% (BldA) [Mass fraction] 94 % Mathieu Virgen MD Work Phone: [facility] 06-20-2024 15:38-0400 Systolic blood pressure 132 mm[Hg] Mathieu Virgen MD Work Phone: [facility] 04-09-2024 14:25-0400 Body mass index (BMI) [Ratio] 40.9 kg/m2 Andrew Guallpa [employer]S ENGINEER Work Phone: [facility] 04-09-2024 14:25-0400 Body temperature 98.8 [degF] Andrew Guallpa [employer]S ENGINEER Work Phone: [facility] 04-09-2024 14:25-0400 Body weight 140.6 kg Andrew Guallpa [employer] ENGINEER Work Phone: [facility] 04-09-2024 14:25-0400 Diastolic blood pressure 84 mm[Hg] Andrew Guallpa [employer]S ENGINEER Work Phone: [facility] 04-09-2024 14:25-0400 Heart rate 94 /min Andrew Guallpa [employer]S ENGINEER Work Phone: [facility] 04-09-2024 14:25-0400 Respiratory rate 20 /min Andrew Guallpa [employer]S ENGINEER Work Phone: [facility] 04-09-2024 14:25-0400 SaO2% (BldA) [Mass fraction] 93 % Andrew Guallpa [employer]S ENGINEER Work Phone: [facility] 04-09-2024 14:25-0400 Systolic blood pressure 128 mm[Hg] Andrew Guallpa [employer] ENGINEER Work Phone: [facility] 02-28-2024 11:50-0400 Diastolic blood pressure 86 mm[Hg] NA Travis PA-C Work Phone: [facility] 02-28-2024 11:50-0400 Systolic blood pressure 148 mm[Hg] NA Travis PA-C Work Phone: [facility] 02-28-2024 11:00-0400 Body mass index (BMI) [Ratio] 40.69 kg/m2 NA Travis PA-C Work Phone: [facility] 02-28-2024 11:00-0400 Body weight 139.89 kg NA Travis PA-C Work Phone: [facility] 02-28-2024 11:00-0400 Heart rate 85 /min NA Travis PA-C Work Phone: [facility] 02-28-2024 11:00-0400 SaO2% (BldA) [Mass fraction] 94 % NA Travis PA-C Work Phone: [facility] 02-04-2024 11:33-0400 Body mass index (BMI) [Ratio] 39.18 kg/m2 NA Travis PA-C Work Phone: [facility] 02-04-2024 11:33-0400 Body weight 134.72 kg NA Travis PA-C Work Phone: [facility] 02-04-2024 11:33-0400 Diastolic blood pressure 69 mm[Hg] NA Travis PA-C Work Phone: [facility] 02-04-2024 11:33-0400 Heart rate 73 /min NA Travis PA-C Work Phone: [facility] 02-04-2024 11:33-0400 Respiratory rate 18 /min NA Travis PA-C Work Phone: [facility] 02-04-2024 11:33-0400 SaO2% (BldA) [Mass fraction] 94 % NA Travis PA-C Work Phone: [facility] 02-04-2024 11:33-0400 Systolic blood pressure 113 mm[Hg] NA Travis PA-C Work Phone: [facility] 12-25-2023 13:44-0400 Body weight 130.18 kg Mathieu Virgen MD Work Phone: [facility] 12-25-2023 13:44-0400 Diastolic blood pressure 80 mm[Hg] Mathieu Virgen MD Work Phone: [facility] 12-25-2023 13:44-0400 Heart rate 73 /min Mathieu Virgen MD Work Phone: [facility] 12-25-2023 13:44-0400 Respiratory rate 18 /min Mathieu Virgen MD Work Phone: [facility] 12-25-2023 13:44-0400 SaO2% (BldA) [Mass fraction] 96 % Mathieu Virgen MD Work Phone: [facility] 12-25-2023 13:44-0400 Systolic blood pressure 122 mm[Hg] Mathieu Virgen MD Work Phone: [facility] 09-22-2023 14:49-0500 Diastolic blood pressure 56 mm[Hg] [facility] 09-22-2023 14:49-0500 Heart rate 75 /min [facility] 09-22-2023 14:49-0500 Respiratory rate 16 /min [facility] 09-22-2023 14:49-0500 SaO2% (BldA) [Mass fraction] 96 % [facility] 09-22-2023 14:49-0500 Systolic blood pressure 121 mm[Hg] [facility] 09-22-2023 10:13-0500 Body height 185.42 cm [facility] 09-22-2023 10:13-0500 Body mass index (BMI) [Ratio] 38.2 kg/m2 [facility] 09-22-2023 10:13-0500 Body temperature 96.9 [degF] [facility] 09-22-2023 10:13-0500 Body weight 131.3 kg [facility] 07-23-2023 14:18-0500 Diastolic blood pressure 70 mm[Hg] Pio Nicole MD Work Phone: [facility] 07-23-2023 14:18-0500 Heart rate 64 /min Pio Nicole MD Work Phone: [facility] 07-23-2023 14:18-0500 Respiratory rate 20 /min Pio Nicole MD Work Phone: [facility] 07-23-2023 14:18-0500 SaO2% (BldA) [Mass fraction] 96 % Pio Nicole MD Work Phone: [facility] 07-23-2023 14:18-0500 Systolic blood pressure 128 mm[Hg] Pio Nicole MD Work Phone: [facility] 06-09-2023 10:41-0400 Body temperature 98.6 [degF] Pio Nicole MD Work Phone: [facility] 06-09-2023 10:41-0400 Body weight 132.45 kg Pio Nicole MD Work Phone: [facility] 06-09-2023 10:41-0400 Diastolic blood pressure 68 mm[Hg] Pio Nicole MD Work Phone: [facility] 06-09-2023 10:41-0400 Heart rate 79 /min Pio Nicole MD Work Phone: [facility] 09-23-2023 10:41-0400 Respiratory rate 30 /min Pio Nicole MD Work Phone: [facility] 06-09-2023 10:41-0400 SaO2% (BldA) [Mass fraction] 93 % Poi Nicole MD Work Phone: [facility] 06-09-2023 10:41-0400 Systolic blood pressure 124 mm[Hg] Pio Nicole MD Work Phone: [facility] 06-06-2023 10:25-0400 Body height 185.4 cm Mathieu Virgen MD Work Phone: [facility] 06-06-2023 10:25-0400 Body weight 134.17 kg Mathieu Virgen MD Work Phone: [facility] 06-06-2023 10:25-0400 Diastolic blood pressure 64 mm[Hg] Mathieu Virgen MD Work Phone: [facility] 06-06-2023 10:25-0400 Heart rate 77 /min Mathieu Virgen MD Work Phone: [facility] 06-06-2023 10:25-0400 SaO2% (BldA) [Mass fraction] 97 % Mathieu Virgen MD Work Phone: [facility] 06-06-2023 10:25-0400 Systolic blood pressure 130 mm[Hg] Mathieu Virgen MD Work Phone: [facility] 05-18-2023 15:03-0400 Body height 185.4 cm NA Travis PA-C Work Phone: [facility] 05-18-2023 15:03-0400 Body temperature 97.11 [degF] NA Travis PA-C Work Phone: [facility] 05-18-2023 15:03-0400 Body weight 131 kg NA Travis PA-C Work Phone: [facility] 05-18-2023 15:03-0400 Diastolic blood pressure 64 mm[Hg] NA Travis PA-C Work Phone: [facility] 05-18-2023 15:03-0400 Heart rate 72 /min NA Travis PA-C Work Phone: [facility] 05-18-2023 15:03-0400 SaO2% (BldA) [Mass fraction] 96 % NA Travis PA-C Work Phone: [facility] 05-18-2023 15:03-0400 Systolic blood pressure 104 mm[Hg] NA Travis PA-C Work Phone: [facility] 05-01-2023 14:23-0400 Body temperature 97.9 [degF] NA Travis PA-C Work Phone: [facility] 05-01-2023 14:23-0400 Diastolic blood pressure 70 mm[Hg] NA Travis PA-C Work Phone: [facility] 05-01-2023 14:23-0400 Heart rate 80 /min NA Travis PA-C Work Phone: [facility] 05-01-2023 14:23-0400 Respiratory rate 20 /min NA Travis PA-C Work Phone: [facility] 05-01-2023 14:23-0400 SaO2% (BldA) [Mass fraction] 96 % NA Travis PA-C Work Phone: [facility] 05-01-2023 14:23-0400 Systolic blood pressure 118 mm[Hg] NA Travis PA-C Work Phone: [facility] 04-30-2023 14:11-0400 Body weight 132.9 kg NA Travis PA-C Work Phone: [facility] 04-30-2023 14:11-0400 Diastolic blood pressure 68 mm[Hg] NA Travis PA-C Work Phone: [facility] 04-30-2023 14:11-0400 Heart rate 75 /min NA Travis PA-C Work Phone: [facility] 04-30-2023 14:11-0400 Respiratory rate 18 /min NA Travis PA-C Work Phone: [facility] 04-30-2023 14:11-0400 SaO2% (BldA) [Mass fraction] 95 % NA Travis PA-C Work Phone: [facility] 04-30-2023 14:11-0400 Systolic blood pressure 114 mm[Hg] NA Travis PA-C Work Phone: [facility] 03-31-2023 04:41-0400 Diastolic blood pressure 68 mm[Hg] Dr. Mathieu Virgen Work Phone: [facility] 03-31-2023 04:41-0400 Heart rate 65 /min Dr. Mathieu Virgen Work Phone: [facility] 03-31-2023 04:41-0400 Respiratory rate 16 /min Dr. Mathieu Virgen Work Phone: [facility] 03-31-2023 04:41-0400 SaO2% (BldA) [Mass fraction] 98 % Dr. Mathieu Virgen Work Phone: [facility] 03-31-2023 04:41-0400 Systolic blood pressure 138 mm[Hg] Dr. Mathieu Virgen Work Phone: [facility] 03-31-2023 00:17-0400 Body height 184.[address] Mathieu Virgen Work Phone: [facility] 03-31-2023 00:17-0400 Body temperature 97.8 [degF] Dr. Mathieu Virgen Work Phone: [facility] 03-05-2023 15:22-0400 Body temperature 97.3 [degF] Andrew Guallpa APRN.[employer] SEC[employer]ITY SYSTEMS ENGINEER Work Phone: [facility] 03-05-2023 15:22-0400 Body weight 138.26 kg Andrew Guallpa APRN.[employer] SEC[employer] SYSTEMS ENGINEER Work Phone: [facility] 03-05-2023 15:22-0400 Diastolic blood pressure 62 mm[Hg] Andrew Guallpa APRN.CYBER SECURITY SYSTEMS ENGINEER Work Phone: [facility] 03-05-2023 15:22-0400 Heart rate 82 /min Andrew Castellanoscollette [employer] SEC[employer]ITY SYSTEMS ENGINEER Work Phone: [facility] 03-05-2023 15:22-0400 Respiratory rate 20 /min Andrew Castellanoscollette [employer].CY[employer] SEC[employer]ITY SYSTEMS ENGINEER Work Phone: [facility] 03-05-2023 15:22-0400 SaO2% (BldA) [Mass fraction] 94 % Andrew Castellanoscollette [employer] SEC[employer]ITY SYSTEMS ENGINEER Work Phone: [facility] 03-05-2023 15:22-0400 Systolic blood pressure 120 mm[Hg] Andrew Castellanoscollette [employer] SEC[employer]ITY SYSTEMS ENGINEER Work Phone: [facility] 03-02-2023 16:23-0400 Body weight 137.44 kg Mathieu Virgen MD Work Phone: [facility] 03-02-2023 16:23-0400 Diastolic blood pressure 60 mm[Hg] Mathieu Virgen MD Work Phone: [facility] 03-02-2023 16:23-0400 Heart rate 76 /min Mathieu Virgen MD Work Phone: [facility] 03-02-2023 16:23-0400 SaO2% (BldA) [Mass fraction] 93 % Mathieu Virgen MD Work Phone: [facility] 03-02-2023 16:23-0400 Systolic blood pressure 112 mm[Hg] Mathieu Virgen MD Work Phone: [facility] 03-01-2023 22:57-0400 Diastolic blood pressure 67 mm[Hg] Dr. Mathieu Virgen Work Phone: [facility] 03-01-2023 22:57-0400 Heart rate 73 /min Dr. Mathieu Virgen Work Phone: [facility] 03-01-2023 22:57-0400 Respiratory rate 16 /min Dr. Mathieu Virgen Work Phone: [facility] 03-01-2023 22:57-0400 SaO2% (BldA) [Mass fraction] 95 % Dr. Mathieu Virgen Work Phone: 2(134)231-930595 [place] [address] 03-01-2023 22:57-0400 Systolic blood pressure 132 mm[Hg] Dr. Mathieu Virgen Work Phone: 9(846)141-081003 [place] [address] 03-01-2023 20:28-0400 Body height 185.[address] Mathieu Virgen Work Phone: 3(478)217-408403 [place] [address] 03-01-2023 20:28-0400 Body mass index (BMI) [Ratio] 40 kg/m2 Dr. Mathieu Virgen Work Phone: 9(324)128-056803 [place] [address] 03-01-2023 20:28-0400 Body temperature 97.8 [degF] Dr. Mathieu Virgen Work Phone: 8(412)605-983003 [place] [address] 03-01-2023 20:28-0400 Body weight 137.[address] Mathieu Virgen Work Phone: 4(937)552-290403 [place] [address] 03-01-2023 07:54-0400 Body mass index (BMI) [Ratio] 39.2 kg/m2 Dr. Mathieu Virgen Work Phone: 3(055)479-195703 [place] [address] 03-01-2023 07:54-0400 Body temperature 97.7 [degF] Dr. Mathieu Virgen Work Phone: 6(232)755-570103 [place] [address] 03-01-2023 07:54-0400 Body weight 134.[address] Mathieu Virgen Work Phone: 8(316)852-237203 [place] [address] 03-01-2023 07:54-0400 Diastolic blood pressure 59 mm[Hg] Dr. Mathieu Vrigen Work Phone: 5(120)094-928395 [place] [address] 03-01-2023 07:54-0400 Heart rate 84 /min Dr. Mathieu Virgen Work Phone: 9(579)836-274003 [place] [address] 03-01-2023 07:54-0400 Respiratory rate 20 /min Dr. Mathieu Virgen Work Phone: 4(829)811-021603 [place] [address] 03-01-2023 07:54-0400 SaO2% (BldA) [Mass fraction] 91 % Dr. Mathieu Virgen Work Phone: 6(036)107-649995 [place] [address] 03-01-2023 07:54-0400 Systolic blood pressure 131 mm[Hg] Dr. Mathieu Virgen Work Phone: 8(104)048-855503 [place] [address] 02-25-2023 03:07-0400 Diastolic blood pressure 75 mm[Hg] Dr. Mathieu Virgen Work Phone: 8(865)929-394103 [place] [address] 02-25-2023 03:07-0400 Heart rate 66 /min Dr. Mathieu Virgen Work Phone: 4(495)861-981003 [place] [address] 02-25-2023 03:07-0400 Respiratory rate 22 /min Dr. Mathieu Virgen Work Phone: 9(887)950-848703 [place] [address] 02-25-2023 03:07-0400 SaO2% (BldA) [Mass fraction] 96 % Dr. Mathieu Virgen Work Phone: 2(924)783-385203 [place] [address] 02-25-2023 03:07-0400 Systolic blood pressure 153 mm[Hg] Dr. Mathieu Virgen Work Phone: 1(141)971-138003 [place] [address] 02-24-2023 21:56-0400 Body mass index (BMI) [Ratio] 40.8 kg/m2 Dr. aMthieu Virgen Work Phone: 1(216)171-478503 [place] [address] 02-24-2023 21:56-0400 Body temperature 96.6 [degF] Dr. Mathieu Virgen Work Phone: 1(609)736-329103 [place] [address] 02-24-2023 21:56-0400 Body weight 140.[address] Mathieu Virgen Work Phone: 6(143)844-026795 [place] [address] 02-16-2023 14:38-0400 Diastolic blood pressure 80 mm[Hg] Denisha Shepard [employer] SYSTEMS ENGINEER Work Phone: 6(105)498-364577 [place] [address] 02-16-2023 14:38-0400 Heart rate 82 /min Denisha Haagen [employer] SYSTEMS ENGINEER Work Phone: [facility] 02-16-2023 14:38-0400 Respiratory rate 16 /min Denisha Jensenagen [employer] SEC[employer]ITY SYSTEMS ENGINEER Work Phone: [facility] 02-16-2023 14:38-0400 SaO2% (BldA) [Mass fraction] 94 % Denisha Shepard [employer]ITY SYSTEMS ENGINEER Work Phone: [facility] 02-16-2023 14:38-0400 Systolic blood pressure 142 mm[Hg] Denisha Shepard [employer]ITY SYSTEMS ENGINEER Work Phone: [facility] 01-19-2023 14:18-0400 Body weight 137.44 kg Mathieu Virgen MD Work Phone: [facility] 01-19-2023 14:18-0400 Diastolic blood pressure 72 mm[Hg] Mathieu Virgen MD Work Phone: [facility] 01-19-2023 14:18-0400 Heart rate 86 /min Mathieu Virgen MD Work Phone: [facility] 01-19-2023 14:18-0400 Respiratory rate 16 /min Mathieu Virgen MD Work Phone: [facility] 01-19-2023 14:18-0400 Systolic blood pressure 134 mm[Hg] Mathieu Virgen MD Work Phone: [facility] 11-29-2022 09:33-0400 Body height 185.4 cm Mathieu Virgen MD Work Phone: [facility] 11-29-2022 09:33-0400 Body weight 137.89 kg Mathieu Virgen MD Work Phone: [facility] 11-29-2022 09:33-0400 Diastolic blood pressure 68 mm[Hg] Mathieu Virgen MD Work Phone: [facility] 11-29-2022 09:33-0400 Heart rate 85 /min Mathieu Virgen MD Work Phone: [facility] 11-29-2022 09:33-0400 SaO2% (BldA) [Mass fraction] 96 % Mathieu Virgen MD Work Phone: [facility] 11-29-2022 09:33-0400 Systolic blood pressure 136 mm[Hg] Mathieu Virgen MD Work Phone: [facility] 11-21-2022 14:44-0500 Body temperature 97.7 [degF] Dr. Mathieu Virgne Work Phone: 7(899)286-212303 [place] [address] 11-21-2022 14:44-0500 Diastolic blood pressure 74 mm[Hg] Dr. Mathieu Virgen Work Phone: 5(160)243-836203 [place] [address] 11-21-2022 14:44-0500 Heart rate 78 /min Dr. Mathieu Virgen Work Phone: 9(713)396-499603 [place] [address] 11-21-2022 14:44-0500 Respiratory rate 16 /min Dr. Mathieu Virgen Work Phone: 2(849)232-200903 [place] [address] 11-21-2022 14:44-0500 SaO2% (BldA) [Mass fraction] 94 % Dr. Mathieu Virgen Work Phone: 1(982)660-187303 [place] [address] 11-21-2022 14:44-0500 Systolic blood pressure 145 mm[Hg] Dr. Mathieu Virgen Work Phone: 0(580)996-724803 [place] [address] 11-21-2022 08:28-0500 Body height 185.[address] Mathieu Virgen Work Phone: 5(642)893-689403 [place] [address] 11-21-2022 08:28-0500 Body mass index (BMI) [Ratio] 39.9 kg/m2 Dr. Mathieu Virgen Work Phone: 7(920)024-100803 [place] [address] 11-21-2022 08:28-0500 Body weight 137.[address] Mathieu Virgen Work Phone: 9(213)701-243503 [place] [address] 11-21-2022 01:50-0500 Diastolic blood pressure 77 mm[Hg] Dr. Mathieu Virgen Work Phone: 6(319)138-353203 [place] [address] 11-21-2022 01:50-0500 Heart rate 89 /min Dr. Mathieu Virgen Work Phone: 8(806)066-949995 [place] [address] 11-21-2022 01:50-0500 Respiratory rate 15 /min Dr. Mathieu Virgen Work Phone: 9(175)691-135203 [place] [address] 11-21-2022 01:50-0500 SaO2% (BldA) [Mass fraction] 99 % Dr. Mathieu Virgen Work Phone: 8(621)755-263095 [place] [address] 11-21-2022 01:50-0500 Systolic blood pressure 150 mm[Hg] Dr. Mathieu Virgen Work Phone: 4(559)417-335603 [place] [address] 11-20-2022 23:59-0500 Body mass index (BMI) [Ratio] 40.8 kg/m2 Dr. Mathieu Virgen Work Phone: 2(943)324-566403 [place] [address] 11-20-2022 23:59-0500 Body temperature 97.9 [degF] Dr. Mathieu Virgen Work Phone: 8(404)507-270903 [place] [address] 11-20-2022 23:59-0500 Body weight 140.[address] Mathieu Virgen Work Phone: 4(755)980-041003 [place] [address] 10-26-2022 11:24-0500 Body weight 138.[address] Mathieu Virgen Work Phone: 3(634)098-993003 [place] [address] 10-26-2022 11:24-0500 Diastolic blood pressure 66 mm[Hg] Dr. Mathieu Virgen Work Phone: 6(255)540-175803 [place] [address] 10-26-2022 11:24-0500 Heart rate 75 /min Dr. Mathieu Virgen Work Phone: 9(095)676-428803 [place] [address] 10-26-2022 11:24-0500 Respiratory rate 24 /min Dr. Mathieu Virgen Work Phone: 2(573)727-034603 [place] [address] 10-26-2022 11:24-0500 Systolic blood pressure 104 mm[Hg] Dr. Mathieu Virgen Work Phone: 2(814)865-248203 [place] [address] 08-08-2022 08:49-0500 Body height 185.[address] Mathieu Virgen Work Phone: 7(032)248-258803 [place] [address] Work Phone: 08-08-2022 08:49-0500 Body mass index (BMI) [Ratio] 39.5 kg/m2 Dr. Mathieu Virgen Work Phone: 6(748)659-285003 [place] [address] 08-08-2022 08:49-0500 Body temperature 97.5 [degF] Dr. Mathieu Virgen Work Phone: 2(492)012-272303 [place] [address] 08-08-2022 08:49-0500 Body weight 136.[address] Mathieu Virgen Work Phone: [facility] 08-08-2022 08:49-0500 Diastolic blood pressure 65 mm[Hg] Dr. Mathieu Virgen Work Phone: [facility] 08-08-2022 08:49-0500 Heart rate 86 /min Dr. Mathieu Virgen Work Phone: [facility] 08-08-2022 08:49-0500 Respiratory rate 14 /min Dr. Mathieu Virgen Work Phone: [facility] 08-08-2022 08:49-0500 SaO2% (BldA) [Mass fraction] 96 % Dr. Mathieu Virgen Work Phone: [facility] 08-08-2022 08:49-0500 Systolic blood pressure 160 mm[Hg] Dr. Mathieu Virgen Work Phone: [facility] 05-31-2022 10:38-0400 Body height 185.4 cm Mathieu Virgen MD Work Phone: [facility] 05-31-2022 10:38-0400 Body weight 136.08 kg Mathieu Virgen MD Work Phone: [facility] 05-31-2022 10:38-0400 Diastolic blood pressure 68 mm[Hg] Mathieu Virgen MD Work Phone: [facility] 05-31-2022 10:38-0400 Heart rate 87 /min Mathieu Virgen MD Work Phone: [facility] 05-31-2022 10:38-0400 SaO2% (BldA) [Mass fraction] 94 % Mathieu Virgen MD Work Phone: [facility] 05-31-2022 10:38-0400 Systolic blood pressure 136 mm[Hg] Mathieu Virgen MD Work Phone: [facility] 05-04-2022 08:51-0400 Body mass index (BMI) [Ratio] 39.8 kg/m2 Dr. Mathieu Virgen Work Phone: [facility] Work Phone: 05-04-2022 08:51-0400 Body weight 136.[address] Mathieu Virgen Work Phone: [facility] Work Phone: 05-04-2022 08:51-0400 Diastolic blood pressure 69 mm[Hg] Dr. Mathieu Virgen Work Phone: [facility] Work Phone: 05-04-2022 08:51-0400 Heart rate 80 /min Dr. Mathieu Virgen Work Phone: [facility] Work Phone: 05-04-2022 08:51-0400 Respiratory rate 22 /min Dr. Mathieu Virgen Work Phone: [facility] Work Phone: 05-04-2022 08:51-0400 Systolic blood pressure 112 mm[Hg] Dr. Mathieu Virgen Work Phone: [facility] Work Phone: 04-08-2022 19:02-0400 Diastolic blood pressure 54 mm[Hg] Dr. Mathieu Virgen Work Phone: [facility] Work Phone: 04-08-2022 19:02-0400 Heart rate 78 /min Dr. Mathieu Virgen Work Phone: [facility] Work Phone: 04-08-2022 19:02-0400 Systolic blood pressure 137 mm[Hg] Dr. Mathieu Virgen Work Phone: [facility] Work Phone: 04-08-2022 18:04-0400 Respiratory rate 16 /min Dr. Mathieu Virgen Work Phone: [facility] Work Phone: 04-08-2022 18:04-0400 SaO2% (BldA) [Mass fraction] 96 % Dr. Mathieu Virgen Work Phone: [facility] Work Phone: 04-08-2022 15:02-0400 Body height 185.[address] Mathieu Virgen Work Phone: [facility] Work Phone: 04-08-2022 15:02-0400 Body mass index (BMI) [Ratio] 39.8 kg/m2 Dr. Mathieu Virgen Work Phone: [facility] Work Phone: 04-08-2022 15:02-0400 Body temperature 97.8 [degF] Dr. Mathieu Virgen Work Phone: [facility] Work Phone: 04-08-2022 15:02-0400 Body weight [address] Mathieu Virgen Work Phone: [facility] Work Phone: 04-08-2022 14:43-0400 Body temperature 97.5 [degF] Andrew Pendlebury [employer]S ENGINEER Work Phone: [facility] 04-08-2022 14:43-0400 Body weight 137.26 kg Andrew Pendlecollette [employer] SYSTEMS ENGINEER Work Phone: [facility] 04-08-2022 14:43-0400 Diastolic blood pressure 60 mm[Hg] Andrew Pendlebury [employer] SEC[employer] SYSTEMS ENGINEER Work Phone: [facility] 04-08-2022 14:43-0400 Heart rate 80 /min Andrew Pendlebury [employer] SEC[employer] SYSTEMS ENGINEER Work Phone: [facility] 04-08-2022 14:43-0400 Respiratory rate 21 /min Andrew Pendlebury [employer] SEC[employer] SYSTEMS ENGINEER Work Phone: [facility] 04-08-2022 14:43-0400 SaO2% (BldA) [Mass fraction] 97 % Andrew Pendlebury [employer] SYSTEMS ENGINEER Work Phone: [facility] 04-08-2022 14:43-0400 Systolic blood pressure 136 mm[Hg] Andrew Guallpa APRN.CNP Work Phone: [facility] 03-03-2022 10:26-0400 Body weight 136.53 kg Mathieu Virgen MD Work Phone: [facility] 03-03-2022 10:26-0400 Diastolic blood pressure 74 mm[Hg] Mathieu Virgen MD Work Phone: [facility] 03-03-2022 10:26-0400 Heart rate 78 /min Mathieu Virgen MD Work Phone: [facility] 03-03-2022 10:26-0400 SaO2% (BldA) [Mass fraction] 95 % Mathieu Virgen MD Work Phone: [facility] 03-03-2022 10:26-0400 Systolic blood pressure 124 mm[Hg] Mathieu Virgen MD Work Phone: [facility] 03-02-2022 10:33-0400 Body mass index (BMI) [Ratio] 39.2 kg/m2 Dr. Mathieu Virgen Work Phone: [facility] Work Phone: 03-02-2022 10:33-0400 Body temperature 97.1 [degF] Dr. Mathieu Virgen Work Phone: [facility] Work Phone: 03-02-2022 10:33-0400 Body weight 134.[address] Mathieu Virgen Work Phone: [facility] Work Phone: 03-02-2022 10:33-0400 Diastolic blood pressure 52 mm[Hg] Dr. Mathieu Virgen Work Phone: [facility] Work Phone: 03-02-2022 10:33-0400 Heart rate 83 /min Dr. Mathieu Virgen Work Phone: [facility] Work Phone: 03-02-2022 10:33-0400 Respiratory rate 17 /min Dr. Mathieu Virgen Work Phone: [facility] Work Phone: 03-02-2022 10:33-0400 SaO2% (BldA) [Mass fraction] 93 % Dr. Mathieu Virgen Work Phone: [facility] Work Phone: 03-02-2022 10:33-0400 Systolic blood pressure 100 mm[Hg] Dr. Mathieu Virgen Work Phone: [facility] Work Phone: 01-30-2022 11:26-0400 Body mass index (BMI) [Ratio] 40.7 kg/m2 Dr. Mathieu Virgen Work Phone: [facility] Work Phone: 01-30-2022 11:26-0400 Body temperature 97.9 [degF] Dr. Mathieu Virgen Work Phone: [facility] Work Phone: 01-30-2022 11:26-0400 Body weight 140.[address] Mathieu Virgen Work Phone: [facility] Work Phone: 01-30-2022 11:26-0400 Diastolic blood pressure 78 mm[Hg] Dr. Mathieu Virgen Work Phone: [facility] Work Phone: 01-30-2022 11:26-0400 Heart rate 83 /min Dr. Mathieu Virgen Work Phone: [facility] Work Phone: 01-30-2022 11:26-0400 Respiratory rate 22 /min Dr. Mathieu Virgen Work Phone: [facility] Work Phone: 01-30-2022 11:26-0400 SaO2% (BldA) [Mass fraction] 93 % Dr. Mathieu Virgen Work Phone: [facility] Work Phone: 01-30-2022 11:26-0400 Systolic blood pressure 126 mm[Hg] Dr. Mathieu Virgen Work Phone: [facility] Work Phone: 01-30-2022 11:26-0400 Body height 185.[address] Mathieu Virgen Work Phone: [facility] Work Phone: 01-30-2022 11:26-0400 Body mass index (BMI) [Ratio] 40.7 kg/m2 Dr. Mathieu Virgen Work Phone: [facility] Work Phone: 01-30-2022 11:26-0400 Body temperature 97.9 [degF] Dr. Mathieu Virgen Work Phone: [facility] Work Phone: 01-30-2022 11:26-0400 Body weight 140.[address] Mathieu Virgen Work Phone: [facility] Work Phone: 01-30-2022 11:26-0400 Diastolic blood pressure 78 mm[Hg] Dr. Mathieu Virgen Work Phone: [facility] Work Phone: 01-30-2022 11:26-0400 Heart rate 83 /min Dr. Mathieu Virgen Work Phone: [facility] Work Phone: 01-30-2022 11:26-0400 Respiratory rate 22 /min Dr. Mathieu Virgen Work Phone: [facility] Work Phone: 01-30-2022 11:26-0400 SaO2% (BldA) [Mass fraction] 93 % Dr. Mathieu Virgen Work Phone: [facility] Work Phone: 01-30-2022 11:26-0400 Systolic blood pressure 126 mm[Hg] Dr. Mathieu Virgen Work Phone: [facility] Work Phone: 01-27-2022 14:46-0400 Body temperature 97.9 [degF] Saad Park [employer]S ENGINEER Work Phone: [facility] 01-27-2022 14:46-0400 Body weight 136.62 kg Saad Park [employer] SYSTEMS ENGINEER Work Phone: [facility] 01-27-2022 14:46-0400 Diastolic blood pressure 74 mm[Hg] Saad King [employer] SYSTEMS ENGINEER Work Phone: [facility] 01-27-2022 14:46-0400 Heart rate 85 /min Saad Park [employer] SYSTEMS ENGINEER Work Phone: [facility] 01-27-2022 14:46-0400 Respiratory rate 18 /min Saad Park [employer] SEC[employer] SYSTEMS ENGINEER Work Phone: [facility] 01-27-2022 14:46-0400 SaO2% (BldA) [Mass fraction] 95 % Saad Park [employer] SEC[employer]ITY SYSTEMS ENGINEER Work Phone: [facility] 01-27-2022 14:46-0400 Systolic blood pressure 128 mm[Hg] Saad Park [employer] SEC[employer]ITY SYSTEMS ENGINEER Work Phone: [facility] 01-12-2022 14:41-0400 Diastolic blood pressure 75 mm[Hg] Kaitlyn [facility] Work Phone: [facility] 01-12-2022 14:41-0400 Heart rate 74 /min [facility] [facility] 01-12-2022 14:41-0400 Systolic blood pressure 132 mm[Hg] [facility] Work Phone: [facility] 11-30-2021 11:14-0400 Body mass index (BMI) [Ratio] 39.4 kg/m2 Dr. Mathieu Virgen Work Phone: [facility] Work Phone: 11-30-2021 11:14-0400 Body temperature 96.9 [degF] Dr. Mathieu Virgen Work Phone: [facility] Work Phone: 11-30-2021 11:14-0400 Body weight 135.[address] Mathieu Virgen Work Phone: [facility] Work Phone: 11-30-2021 11:14-0400 Diastolic blood pressure 76 mm[Hg] Dr. Mathieu Virgen Work Phone: [facility] Work Phone: 11-30-2021 11:14-0400 Heart rate 78 /min Dr. Mathieu Virgen Work Phone: [facility] Work Phone: 11-30-2021 11:14-0400 Respiratory rate 18 /min Dr. Mathieu Virgen Work Phone: [facility] Work Phone: 11-30-2021 11:14-0400 SaO2% (BldA) [Mass fraction] 92 % Dr. Mathieu Virgen Work Phone: [facility] Work Phone: 11-30-2021 11:14-0400 Systolic blood pressure 132 mm[Hg] Dr. Mathieu Virgen Work Phone: [facility] Work Phone: 11-10-2021 12:18-0500 Body weight 135.[address] Mathieu Virgen Work Phone: [facility] Work Phone: 11-10-2021 12:18-0500 Heart rate 81 /min Dr. Mathieu Virgen Work Phone: [facility] Work Phone: 11-10-2021 12:18-0500 SaO2% (BldA) [Mass fraction] 94 % Dr. Mathieu Virgen Work Phone: [facility] Work Phone: 10-26-2021 10:42-0500 Body mass index (BMI) [Ratio] 40.4 kg/m2 Dr. Mathieu Virgen Work Phone: [facility] Work Phone: 10-26-2021 10:42-0500 Body temperature 97.5 [degF] Dr. Mathieu Virgen Work Phone: [facility] Work Phone: 10-26-2021 10:42-0500 Body weight 135.[address] Mathieu Virgen Work Phone: [facility] Work Phone: 10-26-2021 10:42-0500 Diastolic blood pressure 79 mm[Hg] Dr. Mathieu Virgen Work Phone: [facility] Work Phone: 10-26-2021 10:42-0500 Heart rate 79 /min Dr. Mathieu Virgen Work Phone: [facility] Work Phone: 10-26-2021 10:42-0500 Respiratory rate 16 /min Dr. Mathieu Virgen Work Phone: [facility] Work Phone: 10-26-2021 10:42-0500 SaO2% (BldA) [Mass fraction] 94 % Dr. Mathieu Virgen Work Phone: [facility] Work Phone: 10-26-2021 10:42-0500 Systolic blood pressure 118 mm[Hg] Dr. Mathieu Virgen Work Phone: [facility] Work Phone: 10-24-2021 10:15-0500 Body mass index (BMI) [Ratio] 40.5 kg/m2 Dr. Mathieu Virgen Work Phone: [facility] Work Phone: 10-24-2021 10:15-0500 Body weight 135.[address] Mathieu Virgen Work Phone: [facility] Work Phone: 10-24-2021 10:15-0500 Diastolic blood pressure 65 mm[Hg] Dr. Mathieu Virgen Work Phone: [facility] Work Phone: 10-24-2021 10:15-0500 Heart rate 76 /min Dr. Mathieu Virgen Work Phone: [facility] Work Phone: 10-24-2021 10:15-0500 Respiratory rate 24 /min Dr. Mathieu Virgen Work Phone: [facility] Work Phone: 10-24-2021 10:15-0500 SaO2% (BldA) [Mass fraction] 95 % Dr. Mathieu Virgen Work Phone: [facility] Work Phone: 10-24-2021 10:15-0500 Systolic blood pressure 123 mm[Hg] Dr. Mathieu Virgen Work Phone: [facility] Work Phone: Encounters Encounter Date Encounter Type Care Provider Facility Start: 07-31-2025 ambulatory Eduardo Sweet Facility :[facility] Start: 07-24-2025 End: 07-24-2025 ambulatory ANOOP PHILIP Facility:[facility] Start: 07-24-2025 Encounter for other specified special examinations ANOOP PHILIP [facility] Start: 07-08-2025 End: 07-08-2025 ambulatory Megan Macario Facility:[facility] Start: 06-25-2025 End: 06-25-2025 ambulatory MATHIEU VIRGEN Facility:[facility] Start: 06-12-2025 End: 06-12-[address] Mathieu Virgen MD Work Phone: -Laboratory Start: 06-12-2025 End: 06-12-[address] Mathieu Virgen MD -Laboratory Work Phone: Start: 06-12-2025 End: 06-12-2025 ambulatory MATHIEU VIRGEN Facility:[facility] Start: 06-11-2025 End: 06-11-2025 Patient encounter procedure Tierra Gilbert DC -[facility] Work Phone: Start: 06-11-2025 End: 06-12-[address] Mathieu Virgen MD Work Phone: -[facility] Start: 06-02-2025 End: 06-02-2025 Patient Outreach Mathieu Virgen MD Work Phone: [facility] Comment on above: Transition Of Care ( Chest pain [facility] 05/31-06/01) Start: 06-01-2025 [facility] Start: 06-01-2025 Non-patient / Non-visit Dr. Talia velazco MD -[facility] Start: 05-31-2025 End: 06-01-2025 Evaluation and management of inpatient Dr. Chilango Wheeler [facility] Care Unit Work Phone: Start: 05-31-2025 End: 06-01-[address] Mathieu Virgen MD Work Phone: -Progressive Care Unit Start: 05-31-2025 End: 06-01-2025 ambulatory [facility] Facility:[facility] Start: 05-31-2025 Non-patient / [facility] Work Phone: Start: 05-04-2025 End: 05-04-2025 Patient encounter procedure Eduardo Sweet [facility] Work Phone: Start: 05-04-2025 End: 05-04-[address] Mathieu Virgen MD Work Phone: [facility] Start: 04-30-2025 Non-patient / Non-visit Dr. Thapa [facility] Work Phone: Start: 04-30-2025 Non-patient / Non-visit Dr. Edgar ryan MD -[facility] Start: 04-29-2025 End: 04-30-2025 ambulatory [facility] Facility:[facility] Start: 04-29-2025 End: 04-30-2025 Evaluation and management of inpatient Dr. Narda Prather DO -Progressive Care Unit Work Phone: Start: 04-29-2025 End: 04-30-[address] Mathieu Virgen MD Work Phone: -Progressive Care Unit Start: 04-08-2025 End: 04-08-[address] Mathieu Virgen MD Work Phone: -Laboratory Start: 04-08-2025 End: 04-08-2025 Patient encounter procedure HOT PACKER Megan Macario -Laboratory Work Phone: Start: 04-08-2025 End: 04-08-2025 Patient encounter procedure HOT PACKER Megan Macario -[place] [facility] Work Phone: Start: 04-08-2025 End: 04-08-[address] Mathieu Virgen MD Work Phone: -[place] [facility] Start: 04-08-2025 End: 04-08-2025 ambulatory Megan Macario Facility:[facility] Start: 04-02-2025 End: 04-03-2025 Telephone encounter Mathieu Virgen MD Work Phone: [facility] Comment on above: Patient Assistance ( [employer] form for basaglar) Start: 04-01-2025 End: 04-01-[address] Mathieu Virgen MD Work Phone: -Cat Scan [facility] Start: 04-01-2025 End: 04-01-2025 Patient encounter procedure HOT PACKER Megan Macario -Cat Scan [facility] Work Phone: Start: 04-01-2025 End: 04-01-2025 ambulatory Megan Macario Facility:[facility] Start: 03-27-2025 End: 03-27-2025 ambulatory Mathieu Virgen MD Work Phone: [facility] Comment on above: New Pharmacy Refill Request; refi ll status Start: 03-02-2025 ambulatory Megan Macario Facili ty:[facility] Start: 03-02-2025 Non-patient / Non-visit Dr. Marvin Morse own DO -[facility] Start: 02-26-2025 End: 02-26-[address] Mathieu Virgen MD Work Phone: [facility] Work Phone: Start: 02-26-2025 End: 02-26-2025 Patient encounter procedure HOT PACKER Megan Macario -Pulmonary Services/Neurology Work Phone: Start: 02-26-2025 End: 02-26-2025 ambulatory Megan Macario Facility:[facility] Start: 02-11-2025 End: 02-11-2025 Telephone encounter Mathieu Virgen MD Work Phone: [facility] Comment on above: FYI-No Action Needed (Diabetes note sent to DME) Start: 02-06-2025 End: 05-01-2025 Telephone encounter Mathieu Virgen MD Work Phone: [facility] Comment on above: Results Start: 01-30-2025 End: 02-02-2025 Follow-up encounter Jamal Mace Work Phone: Podiatry Start: 01-30-2025 Non-patient / Non-visit Dr. Marvin Morse own DO -[facility] Start: 01-30-2025 End: 01-30-[address] 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) Start: 01-26-2025 End: 01-26-2025 ambulatory MATHIEU VIRGEN Facility:[facility] Start: 01-26-2025 End: 01-26-2025 Patient encounter procedure Sergey Carreon HOT PACKER-[facility] Work Phone: Start: 01-26-2025 End: 01-26-2025 ambulatory Sergey Carreon HOT PACKER Facility:[facility] Start: 01-23-2025 End: 01-23-2025 ambulatory Mathieu Virgen MD Work Phone: [facility] Comment on above: labs Start: 01-23-2025 End: 01-23-2025 E-mail encounter from caregiver Mathieu Virgen MD Work Phone: [facility] Start: 01-22-2025 End: 01-22-2025 Subsequent hospital visit by physician Dominick [facility] Work Phone: Radiology Comment on above: Closed fracture of f oot, unspecified laterality, initial encounter [S92.909A] Start: 01-22-2025 End: 01-22-2025 Patient encounter procedure Jamal Mace Work Phone: Podiatry Comment on above: Closed fracture of f oot, unspecified laterality, initial encounter Start: 01-22-2025 End: 01-22-2025 ambulatory JAMAL MACE Facility:[facility] Start: 01-22-2025 End: 01-22-2025 Telephone encounter Mathieu Virgen MD Work Phone: [facility] Start: 01-21-2025 End: 01-21-[address] Mathieu Virgen MD Work Phone: [facility] Work Phone: Start: 01-21-2025 End: 01-21-[address] Mathieu Virgen MD -Laboratory Work Phone: Start: 01-21-2025 End: 01-21-2025 Patient encounter procedure ARSALAN Macario [facility] Pulmonary [facility] Work Phone: Start: 01-21-2025 End: 01-21-2025 ambulatory Megan Macario Facility:[facility] Start: 01-21-2025 End: 01-21-2025 ambulatory [facility] Facility:[facility] Start: 01-19-2025 End: 01-20-2025 Emergency department patient visit Dr. Abraham Green -Emergency Department Work Phone: Start: 01-13-2025 End: 01-13-2025 Refill Mathieu Virgen MD Work Phone: [facility] Comment on above: Refill Request Start: 01-12-2025 End: 01-12-2025 Subsequent hospital visit by physician Xr [facility] Work Phone: Radiology Comment on above: Contusion of left fo ot, subsequent encounter [S90.32XD] Start: 01-12-2025 End: 01-12-2025 Patient encounter procedure Mathieu Virgen MD Work Phone: [facility] Comment on above: Contusion of left fo ot, subsequent encounter (Primary Dx); Foot pain, left Start: 01-12-2025 End: 01-12-2025 ambulatory [facility] Facility:[facility] Start: 01-12-2025 End: 01-16-2025 Telephone encounter Mathieu Virgen MD Work Phone: [facility] Comment on above: Results Start: 12-11-2024 End: 12-11-[address] Devante Ponce MD -[facility] Work Phone: Start: 12-11-2024 End: 12-11-2024 ambulatory Devante Ponce Facility:[facility] Start: 12-03-2024 End: 12-04-2024 Telephone encounter Mathieu Virgen MD Work Phone: [facility] Comment on above: Insurance Authorizat ion Start: 12-02-2024 End: 12-02-2024 ambulatory [facility] Facility:[facility] Start: 12-02-2024 End: 12-02-2024 Patient encounter procedure Mathieu Virgen MD Work Phone: [facility] Comment on above: Acute diastolic [...] Telephone encounter Mathieu Virgen MD Work Phone: [facility] Comment on above: Results Start: 11-28-2024 End: 11-28-[address] Mathieu Virgen MD Work Phone: [facility] Work Phone: Start: 11-28-2024 End: 11-28-[address] Mathieu Virgen MD -Laboratory Work Phone: Start: 11-27-2024 End: 11-27-2024 Telephone encounter Mathieu Virgen MD Work Phone: [facility] Comment on above: Orders Start: 11-27-2024 End: 11-28-[address] Mathieu Virgen MD Work Phone: [facility] Work Phone: Start: 11-27-2024 End: 11-27-[address] Mathieu Virgen MD -Laboratory Work Phone: Start: 11-26-2024 End: 11-27-2024 ambulatory Mathieu Virgen MD Work Phone: [facility] Start: 11-26-2024 End: 11-27-2024 Patient encounter procedure Mathieu Virgen MD Work Phone: [facility] Comment on above: Clinic Code Start: 11-26-2024 End: 11-26-2024 Telephone encounter Mathieu Virgen MD Work Phone: [facility] Comment on above: Medication Problem Start: 11-24-2024 End: 11-24-2024 Telephone encounter Mathieu Virgen MD Work Phone: [facility] Comment on above: requesting medicatio n that is Start: 11-13-2024 End: 11-13-2024 ambulatory Mathieu Virgen MD Work Phone: [facility] Comment on above: Lab Work Start: 11-12-2024 End: 11-24-2024 Telephone encounter Mathieu Virgen MD Work Phone: [facility] Comment on above: Medication Question Start: 11-10-2024 End: 11-10-2024 Patient encounter procedure ARSALAN Macario -Sleep Lab Work Phone: Start: 11-10-2024 End: 11-10-2024 ambulatory Mathieu Virgen Facility:[facility] Start: 11-03-2024 End: 11-03-2024 Emergency department patient visit Dr. Qasim Senior DO -Emergency Department Work Phone: Start: 10-31-2024 End: 10-31-2024 ambulatory SUKH HALL Facility:[facility] Start: 10-31-2024 End: 10-31-2024 Patient encounter procedure Sukh Hall APRN.CYBER SECURITY SYSTEMS ENGINEER Work Phone: [facility] Comment on above: Essential hypertensi on (Primary Dx); Paroxysmal atrial fibrillation (HCC); Dizziness; Systolic congestive heart failure, unspecified HF chronicity (HCC) Start: 10-31-2024 End: 10-31-2024 Telephone encounter Mathieu Virgen MD Work Phone: [facility] Comment on above: Appointment Start: 10-23-2024 End: 10-23-2024 Patient encounter procedure ARSALAN Macario -Sleep Lab Work Phone: Start: 10-23-2024 End: 10-23-2024 ambulatory [facility] Facility:[facility] Start: 10-16-2024 End: 10-16-2024 Telephone encounter Mathieu Virgen MD Work Phone: [facility] Comment on above: Dexcom G7 sensors / issue Start: 10-08-2024 End: 10-09-2024 Refill Mathieu Virgen MD Work Phone: [facility] Comment on above: Refill Request Start: 10-07-2024 End: 10-07-2024 Patient encounter procedure Tierra Gilbert PA -Laboratory Work Phone: Start: 10-07-2024 End: 10-07-2024 ambulatory Tierra KIRKPATRICK Facility:[facility] Start: 09-23-2024 End: 09-23-2024 Patient encounter procedure Tierra KIRKPATRICK -[facility] Work Phone: Start: 09-23-2024 End: 09-23-2024 ambulatory Tierra KIRKPATRICK Facility:[facility] Start: 09-23-2024 End: 09-23-2024 Office outpatient visit 15 minutes Denisha Shepard PORCELAIN SLUSHER.CYBER SECURITY SYSTEMS ENGINEER Work Phone: [facility] Comment on above: Dizziness (Primary D x); Chest pain, unspecified type Start: 09-23-2024 End: 09-23-2024 ambulatory DENISHA SHEPARD Facility:[facility] Start: 09-22-2024 End: 09-23-2024 Telephone encounter Denisha Shepard APRN.CYBER SECURITY SYSTEMS ENGINEER Work Phone: [facility] Comment on above: Patient Update; Appo intment Start: 09-20-2024 End: 09-20-2024 Emergency department patient visit Dr. Reji Smith MD -Emergency Department Work Phone: Start: 09-03-2024 End: 09-03-2024 Patient encounter procedure Sergey MUNGUIA -[facility] Work Phone: Start: 09-03-2024 End: 09-03-2024 ambulatory [facility] Facility:[facility] Start: 09-02-2024 End: 09-02-2024 ambulatory Mathieu Virgen MD Work Phone: [facility] Comment on above: Constipation Start: 09-01-2024 End: 09-01-2024 Emergency department patient visit Mani Esquivel DO -Emergency Department Work Phone: Start: 08-25-2024 End: 08-25-2024 Patient encounter procedure HOT PACKER Megan Macario -Sleep Lab Work Phone: Start: 08-25-2024 End: 08-25-2024 ambulatory Megan Macario Facility:[facility] Start: 08-22-2024 End: 08-25-2024 Refill Julianna A Suppan PORCELAIN SLUSHER.CYBER SECURITY SYSTEMS ENGINEER Work Phone: [facility] Comment on above: Refill Request Start: 08-18-2024 End: 08-18-2024 Telephone encounter Mathieu Virgen MD Work Phone: [facility] Comment on above: Orders Start: 08-15-2024 End: 08-15-2024 Refill Julianna A Suppan PORCELAIN SLUSHER.CYBER SECURITY SYSTEMS ENGINEER Work Phone: [facility] Comment on above: Refill Request CGM Order Start: 08-13-2024 End: 08-13-2024 Patient encounter procedure Sergey Carreon HOT PACKER-C -[facility] Work Phone: Start: 08-13-2024 End: 08-13-2024 ambulatory Mathieu Virgen Facility:[facility] Start: 08-11-2024 End: 08-11-2024 Patient encounter procedure Sergey Carreon HOT PACKER-C -Laboratory Work Phone: Start: 08-11-2024 End: 08-11-2024 Telephone encounter Mathieu Virgen MD Work Phone: [facility] Comment on above: Patient Update Start: 08-11-2024 End: 08-11-2024 ambulatory Sergey Carreon HOT PACKER Facility:[facility] Start: 08-05-2024 End: 08-08-2024 Nurse Triage Nurse Intm/Famp Triage [facility] Work Phone: Nurse Phone Triage Comment on above: Oxygen Order Request Scooter Start: 08-02-2024 End: 08-04-2024 ambulatory Mathieu Virgen MD Work Phone: [facility] Comment on above: Dexcom G7 CGM Start: 08-01-2024 End: 08-01-2024 Refill Mathieu Virgen MD Work Phone: [facility] Comment on above: Refill Request Start: 07-31-2024 End: 08-01-2024 Telephone encounter Julianna Hood APRN.CYBER SECURITY SYSTEMS ENGINEER Work Phone: [facility] Start: 07-31-2024 End: 07-31-2024 ambulatory Mathieu Virgen Facility:[facility] Start: 07-31-2024 End: 07-31-2024 ambulatory Julianna Suppan Facility:[facility] Start: 07-29-2024 End: 07-29-2024 Office outpatient visit 25 minutes Julianna Hood PORCELAIN SLUSHER.CYBER SECURITY SYSTEMS ENGINEER Work Phone: [facility] Comment on above: Type 2 diabetes debbie itus with microalbuminuria (HCC) (Primary Dx); Systolic congestive heart failure, unspecified HF chronicity (HCC); Essential hypertension; Paroxysmal atrial fibrillation (HCC); Restrictive lung disease; Schizophrenia, chronic condition (HCC); Chronic anticoagulation; Diastolic congestive heart failure, unspecified HF chronicity (HCC); Iron deficiency anemia, unspecified iron deficiency anemia type; Vitamin B12 deficiency Start: 07-28-2024 End: 07-28-2024 ambulatory Julianna Suppan Facility:[facility] Start: 07-23-2024 ambulatory Talia John Facility:[facility] Start: 07-22-2024 ambulatory Miley Michael [facility] Start: 07-22-2024 End: 07-25-2024 Evaluation and management of inpatient Miley Michael Facility:[facility] Start: 07-09-2024 End: 07-09-2024 Refill Mathieu Virgen MD Work Phone: [facility] Comment on above: Refill Request Start: 06-23-2024 End: 06-23-2024 Patient encounter procedure Abril Duval APRN.CYBER SECURITY SYSTEMS ENGINEER Work Phone: Neurology Comment on above: Snoring (Primary Dx) ; Witnessed episode of apnea; Nocturnal leg movements; Frequent nocturnal awakening; Nocturia Start: 06-23-2024 End: 06-24-2024 Telephone encounter Mathieu Virgen MD Work Phone: [facility] Comment on above: Results Start: 06-20-2024 End: 06-20-2024 Refill Zoila Wright APRN.CNP Work Phone: [facility] Comment on above: Refill Request Essential hypertensi [...] Telephone encounter Mathieu Virgen MD Work Phone: [facility] Comment on above: Patient Question Start: 06-17-2024 End: 06-17-2024 Telephone encounter Mathieu Virgen MD Work Phone: [facility] Start: 06-16-2024 End: 06-16-2024 ambulatory Mathieu Virgen MD Work Phone: [facility] Comment on above: Scooter Start: 06-08-2024 End: 06-09-2024 Refill Mathieu Virgen MD Work Phone: [facility] Comment on above: Refill Request Start: 05-31-2024 End: 05-31-2024 ambulatory Narda Theodore RN NURSE DOCUMENTATION SUPERVISOR Comment on above: Dizziness Start: 05-31-2024 End: 05-31-2024 Patient encounter procedure Estela Oliva APRN.CYBER SECURITY SYSTEMS ENGINEER Work Phone: [facility] Comment on above: Generalized weakness (Primary Dx) Start: 05-07-2024 End: 05-07-2024 Chart abstracting Mathieu Virgen MD Work Phone: [facility] Start: 05-05-2024 End: 05-05-2024 Refill Mathieu Virgen MD Work Phone: [facility] Comment on above: Refill Request Start: 04-14-2024 Refill Mathieu Virgen MD Work Phone: [facility] Comment on above: Refill Request Start: 04-12-2024 End: 04-12-2024 Emergency department patient visit MELVIN BINGHAM Facility:[facility] Start: 04-11-2024 ambulatory Randi Turner RN NURSE DOCUMENTATION SUPERVISOR Comment on above: Patient Update; Bloo d In Urine Encounter for medica l assessment (Primary Dx) Start: 04-11-2024 Patient encounter status Mariaelena Curry DO Work Phone: [facility] Work Phone: Start: 04-11-2024 Telemedicine consult ation with patient Mariaelena Curry DO Work Phone: [facility] Start: 04-10-2024 Refill Mathieu Virgen MD Work Phone: [facility] Comment on above: Refill Request Start: 04-09-2024 End: 04-09-2024 Office outpatient visit 15 minutes Andrew Guallpa APRN.CYBER SECURITY SYSTEMS ENGINEER Work Phone: [facility] Comment on above: Abrasion of left verma d, initial encounter (Primary Dx) Start: 04-08-2024 ambulatory Mathieu Virgen MD Work Phone: [facility] Comment on above: Scooter Start: 03-21-2024 ambulatory Osvaldo ruth PA-C Work Phone: [facility] Comment on above: Test Results Start: 03-21-2024 Telephone encounter Osvaldo KIRKPATRICK-C Work Phone: [facility] Start: 03-19-2024 Telephone encounter Osvaldo ChengKelvinpatsy SNYDERC Work Phone: [facility] Comment on above: Results Start: 03-06-2024 Refill Zoila Wright APRN.CNP Work Phone: [facility] Comment on above: Refill Request Start: 02-28-2024 End: 02-28-2024 Patient encounter procedure Osvaldo Warren Thaddeus SNYDERC Work Phone: [facility] Comment on above: 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); Venous incompetence; Bilateral leg edema; SOB (shortness of breath); Weight gain; CJ (obstructive sleep apnea); Hypersomnolence; Cushingoid facies Start: 02-12-2024 End: 02-12-2024 ambulatory Nurse Intm/Famp Triage [facility] Work Phone: Nurse Phone Triage Start: 02-12-2024 End: 02-12-2024 Telephone follow-up Nurse Intm/Famp Triage [facility] Work Phone: Nurse Phone Triage Comment on above: Follow Up Start: 02-10-2024 ambulatory Osvaldo Kelvin Brett ruth PA-C Work Phone: [facility] Start: 02-10-2024 Follow-up encounter Osvaldo Warren Thaddeus SNYDERC [facility]: [facility] Comment on above: Follow Up Weight Start: 02-04-2024 ambulatory Mathieu Virgen MD Work Phone: [facility] Comment on above: Edema Start: 02-04-2024 End: 02-04-2024 Subsequent hospital visit by physician [facility]r [facility] Work Phone: Radiology Comment on above: SOB (shortness of br eath) [R06.02] Start: 02-04-2024 End: 02-04-2024 Patient encounter procedure Osvaldo Kelivn Travis PA-C Work Phone: [facility] Comment on above: SOB (shortness of br eath) (Primary Dx); Bilateral leg edema; Weight increase Start: 01-26-2024 ambulatory Mathieu Virgen MD Work Phone: [facility] Comment on above: ACCU CHECK TEST STRI PS Start: 01-18-2024 Refill Pio Nicole MD Work Phone: [facility] Comment on above: Refill Request Famotidine Start: 01-09-2024 Refill Zoila Wright APRN.CYBER SECURITY SYSTEMS ENGINEER Work Phone: [facility] Comment on above: Refill Request Start: 01-01-2024 ambulatory Mathieu Virgen MD Work Phone: [facility] Comment on above: Scooter Start: 01-01-2024 Telephone encounter Mathieu Virgen MD Work Phone: [facility] Comment on above: Marlone Carlos PA donovan er Start: 12-30-2023 ambulatory Mathieu Virgen MD Work Phone: [facility] Comment on above: Scooter Start: 12-25-2023 End: 12-25-2023 Patient encounter procedure Mathieu Virgen MD Work Phone: [facility] Comment on above: Paroxysmal atrial fi [...] 11-14-2023 Refill Mathieu Virgen MD Work Phone: [facility] Comment on above: Refill Request Medication Question Orders Start: 11-02-2023 Refill Osvaldo ruth PA-C Work Phone: [facility] Comment on above: Refill Request Start: 10-12-2023 Refill Mathieu Virgen MD Work Phone: [facility] Comment on above: Refill Request Start: 09-22-2023 End: 09-22-2023 Emergency department patient visit [facility] Work Phone: Start: 09-06-2023 End: 09-06-2023 Subsequent hospital visit by physician Xr [facility] Work Phone: Radiology Comment on above: Sinobronchitis [J32. 9, J40] Start: 09-06-2023 ambulatory Mathieu Virgen MD Work Phone: [facility] Comment on above: Coughing Up Blood Start: 08-27-2023 Refill Mathieu Virgen MD Work Phone: [facility] Comment on above: Refill Request Start: 08-07-2023 Telephone encounter Mathieu Virgen MD Work Phone: [facility] Comment on above: Patient Assistance ( [employer] (Basaglar and Humalog)) Start: 07-23-2023 End: 07-23-2023 Subsequent hospital visit by physician Xr [facility] Work Phone: Radiology Comment on above: Acute hip pain, righ t [M25.551] Start: 07-23-2023 End: 07-23-2023 Patient encounter procedure Pio Nicole MD Work Phone: [facility] Comment on above: Acute hip pain, righ t (Primary Dx) Start: 07-13-2023 Telephone encounter Mathieu Virgen MD Work Phone: [facility] Start: 07-11-2023 End: 07-11-2023 Patient encounter procedure [facility] Spec[facility] Work Phone: Start: 06-26-2023 End: 06-26-2023 ambulatory [facility] Work Phone: Start: 06-26-2023 End: 06-26-2023 Patient encounter procedure [facility], Specimen Work Phone: Start: 06-19-2023 Refill Mathieu Virgen MD Work Phone: [facility] Comment on above: Refill Request Start: 06-09-2023 ambulatory Adele murrieta RN NURSE DOCUMENTATION SUPERVISOR Comment on above: Viral Syndrome Start: 06-09-2023 End: 06-09-2023 Subsequent hospital visit by physician [facility] Work Phone: Radiology Comment on above: Viral URI with cough [J06.9] Start: 06-09-2023 End: 06-09-2023 Patient encounter procedure Pio Nicole MD Work Phone: [facility] Comment on above: Viral URI with cough (Primary Dx); Suspected COVID-19 virus infection; Bronchitis Start: 06-07-2023 Refill Mathieu Virgen MD Work Phone: [facility] Comment on above: Refill Request Start: 06-06-2023 End: 06-06-2023 Patient encounter procedure Mathieu Virgen MD Work Phone: [facility] Comment on above: Essential hypertensi on (Primary Dx); Encounter for immunization; Paroxysmal atrial fibrillation (HCC); Mixed hyperlipidemia; Schizophrenia, chronic condition (HCC); Chronic anticoagulation; Type 2 diabetes mellitus with microalbuminuria, with long-term current use of insulin (HCC); Restrictive lung disease Start: 06-04-2023 Telephone encounter Mathieu Virgen MD Work Phone: [facility] Comment on above: patient question/lab s Start: 05-18-2023 End: 05-18-2023 Patient encounter procedure Osvaldo Travis PA-C Work Phone: [facility] Comment on above: Near syncope (Primar y Dx); Fall, initial encounter; Acute upper respiratory infection; Morbid obesity (HCC) Start: 05-16-2023 Refill Mathieu Virgen MD Work Phone: [facility] Comment on above: Refill Request Start: 05-11-2023 Telephone encounter Mathieu Virgen MD Work Phone: [facility] Comment on above: Forms Start: 05-01-2023 End: 05-01-2023 Patient encounter procedure Osvaldo Travis PA-C Work Phone: [facility] Comment on above: Encounter for post s urgical wound check (Primary Dx) Start: 04-30-2023 End: 04-30-2023 Patient encounter procedure Osvaldo Kelvin Travis PA-C Work Phone: [facility] Comment on above: Inflamed acrochordon (Primary Dx); Seborrheic keratoses, inflamed Start: 04-26-2023 ambulatory Mathieu Virgen MD Work Phone: [facility] Comment on above: Skin Tags Removal Start: 04-12-2023 Refill Mathieu Virgen MD Work Phone: [facility] Comment on above: Refill Request Start: 03-31-2023 End: 03-31-2023 Emergency department patient [facility]. Mathieu Vir[facility]: Start: 03-19-2023 ambulatory Mathieu Virgen MD Work Phone: [facility] Start: 03-19-2023 Patient encounter procedure Shannon Virgen MD Work Phone: [facility] Comment on above: Appointment Start: 03-05-2023 End: 03-05-2023 Office outpatient visit 15 minutes Andrew Guallpa APRN.CNP Work Phone: [facility] Comment on above: Acute constipation ( Primary Dx) Start: 03-02-2023 End: 03-02-2023 Patient encounter procedure Mathieu Virgen MD Work Phone: [facility] Comment on above: Nausea (Primary Dx); Hypoglycemia; Type 2 diabetes mellitus with microalbuminuria, with long-term current use of insulin (HCC); Leukocytosis, unspecified type; Abnormal serum level of lipase; Benign prostatic hyperplasia with lower urinary tract symptoms, symptom details unspecified; Urinary retention Start: 03-01-2023 End: 03-01-2023 Emergency department patient visit Dr. Mathieu Virgen [facility] Start: 03-01-2023 End: 03-01-[address] Mathieu Virgen [facility] Start: 02-24-2023 End: 02-25-2023 Emergency department patient visit Dr. Mathieu Virgen Work Phone: [facility] Start: 02-22-2023 Refill Mathieu Virgen MD Work Phone: [facility] Comment on above: Refill Request (medi cation question ) Start: 02-16-2023 End: 02-16-2023 Subsequent hospital visit by physician [facility] Work Phone: Radiology Comment on above: Acute left ankle stone n [M25.572] Start: 02-16-2023 End: 02-16-2023 Office outpatient visit 15 minutes Denisha Shepard APRN.CYBER SECURITY SYSTEMS ENGINEER Work Phone: [facility] Comment on above: Acute left ankle stone n (Primary Dx) Start: 02-16-2023 Telephone encounter Denisha hess APRN.CYBER SECURITY SYSTEMS ENGINEER Work Phone: [facility] Comment on above: Results Start: 02-16-2023 Unlisted evaluation and management service Denisha Shepard APRN.CYBER SECURITY SYSTEMS ENGINEER Work Phone: [facility] Comment on above: Opened In Error Start: 02-14-2023 End: 02-14-2023 Nursing evaluation of patient and report Nurse Jerilyn [facility] Work Phone: General Surgery Comment on above: Lesion of subcutaneo us tissue (Primary Dx) Start: 01-19-2023 End: 01-19-2023 Patient encounter procedure Mathieu Virgen MD Work Phone: [facility] Comment on above: Skin mass (Primary D x) Start: 11-29-2022 End: 11-29-2022 Patient encounter procedure Mathieu Virgen MD Work Phone: [facility] Comment on above: Chest pain, unspecif ied type (Primary Dx); Leukocytosis, unspecified type; Type 2 diabetes mellitus with microalbuminuria, with long-term current use of insulin (HCC); Schizophrenia, chronic condition (HCC); Paroxysmal atrial fibrillation (HCC); Essential hypertension; Pure hypercholesterolemia Start: 11-25-2022 Telephone encounter Mathieu Virgen MD Work Phone: [facility] Comment on above: Orders Start: 11-22-2022 Patient Outreach Mathieu kennedy MD Work Phone: [facility] Comment on above: Transition Of Care ( [facility] 11/21-11/21 dx: chest pain) Start: 11-21-2022 Non-patient / Non-visit Dr. Shannon Virgen Work Phone: [facility] Start: 11-21-2022 Non-patient / Non-visit Dr. Shannon Virgen Work Phone: [facility] Start: 11-21-2022 End: 11-21-2022 Evaluation and management of inpatient Dr. Mathieu Virgen Work Phone: [facility] Care Unit Start: 11-21-2022 End: 11-21-[address] Mathieu Virgen Work Phone: [facility] Work Phone: Start: 11-20-2022 End: 11-21-2022 Emergency department patient visit Dr. Mathieu Virgen Work Phone: [facility] Start: 11-10-2022 Refill Mathieu Virgen MD Work Phone: [facility] Comment on above: Refill Request Start: 10-26-2022 Telephone encounter Kaitlyn kennedy [facility] Work Phone: [facility] Comment on above: Medication Question Start: 10-26-2022 End: 10-26-[address] Mathieu Virgen Work Phone: [facility] Start: 10-16-2022 ambulatory Kaitlyn Hernández [facility] Work Phone: [facility] Comment on above: Carmela mustafa trial ca rd Start: 10-16-2022 E-mail encounter deloris bean caregiver Kaitlyn Hernández [facility] Work Phone: [facility] Start: 10-16-2022 Telephone encounter Kaitlyn kennedy [facility] Work Phone: [facility] Comment on above: Medication Question Start: 10-03-2022 Refill Mathieu Virgen MD Work Phone: [facility] Comment on above: Refill Request Start: 09-29-2022 Telephone encounter Kaitlyn kennedy [facility] Work Phone: [facility] Comment on above: Medication Question Start: 09-25-2022 Telephone encounter Mathieu Virgen MD Work Phone: [facility] Comment on above: [employer] Forms for Insulin Start: 08-21-2022 Refill Mathieu Virgen MD Work Phone: [facility] Comment on above: Refill Request Start: 08-08-2022 End: 08-08-2022 Emergency department patient visit Dr. Mathieu Virgen [facility] Start: 08-07-2022 ambulatory Mathieu Virgen MD Work Phone: [facility] Comment on above: Insulin Needle broke in stomach Start: 06-22-2022 Telephone encounter Kaitlyn kennedy [facility] Work Phone: [facility] Comment on above: Forms (Wilmar rodriguez ient assistance application) Start: 06-22-2022 End: 06-22-2022 Patient encounter procedure Kaitlyn Hernández [facility] Work Phone: [facility] Comment on above: Type 2 diabetes debbei itus without complication, with long-term current use of insulin (HCC) (Primary Dx) Start: 05-31-2022 End: 05-31-2022 Patient encounter procedure Mathieu Virgen MD Work Phone: [facility] Comment on above: Essential hypertensi [...] encounter procedure Dr. Mathieu Virgen Work Phone: [facility] Start: 04-08-2022 End: 04-08-2022 Emergency department patient visit Dr. Mathieu Virgen Work Phone: [facility] Start: 04-08-2022 End: 04-08-2022 Patient encounter procedure Andrew Guallpa APRN.[facility] Work Phone: [facility] Comment on above: Chest pain, unspecif ied type (Primary Dx); Accidental medication error, initial encounter Start: 03-23-2022 Telephone encounter Kaitlynaggie Cuevasjose kennedy [facility] Work Phone: [facility] Comment on above: Forms (Basaglar PAP) Start: 03-23-2022 End: 03-23-2022 Patient encounter procedure Kaitlynaggie Cuevasgo [facility] Work Phone: [facility] Comment on above: Type 2 diabetes debbie itus without complication, with long-term current use of insulin (HCC) (Primary Dx); Essential hypertension Start: 03-06-2022 Telephone encounter Mathieu Virgen MD Work Phone: [facility] Comment on above: Forms ([employer] Cares a pplication) Medication Question Start: 03-03-2022 End: 03-03-2022 Patient encounter procedure Mathieu Virgen MD Work Phone: [facility] Comment on above: Essential hypertensi on (Primary Dx); Pure hypercholesterolemia; Paroxysmal atrial fibrillation (HCC); Type 2 diabetes mellitus with microalbuminuria, with long-term current use of insulin (HCC); Chronic anticoagulation; Need for hepatitis C screening test Start: 03-02-2022 End: 03-02-[address] Mathieu Virgen [facility] Start: 02-09-2022 Telephone encounter Mathieu Virgen MD Work Phone: [facility] Comment on above: indigent med Start: 02-07-2022 End: 02-07-[address] Mathieu Virgen Work Phone: [facility] Start: 02-06-2022 Telephone encounter Mathieu Virgen MD Work Phone: [facility] Comment on above: Patient Request Start: 02-03-2022 End: 02-03-2022 Patient encounter procedure Papito Castano Work Phone: [facility] Comment on above: Gastrocnemius tear, right, initial encounter (Primary Dx) Start: 02-02-2022 Refill Mathieu Virgen MD Work Phone: [facility] Comment on above: Refill Request Start: 02-01-2022 Refill Mathieu Virgen MD Work Phone: [facility] Comment on above: Refill Request (michael ent assistance ) Start: 01-31-2022 Refill Mathieu Virgen MD Work Phone: [facility] Comment on above: Prescription Refills Start: 01-30-2022 End: 01-30-[address] Mathieu Virgen Work Phone: [facility] Start: 01-27-2022 End: 01-27-2022 Patient encounter procedure Saad Park APRN.CNP Work Phone: [facility] Comment on above: Strain of calf muscl e, right, initial encounter (Primary Dx) Start: 01-12-2022 End: 01-12-2022 Patient encounter procedure Kaitlyn Edgar [facility] Work Phone: [facility] Comment on above: Type 2 diabetes debbie itus without complication, with long-term current use of insulin (HCC) (Primary Dx) Refill Request Start: 12-30-2021 Telephone encounter Mathieu Virgen MD Work Phone: [facility] Comment on above: Medication Problem Start: 12-29-2021 Refill Mathieu Virgen MD Work Phone: [facility] Comment on above: Refill Request Start: 12-15-2021 Telephone encounter Kaitlyn kennedy [facility] Work Phone: [facility] Comment on above: Forms (Jardiance PAP ) Start: 12-13-2021 Telephone encounter Mathieu Virgen MD Work Phone: [facility] Comment on above: Medication Problem Start: 12-12-2021 Refill Mathieu Virgen MD Work Phone: [facility] Comment on above: Refill Request Start: 11-30-2021 End: 11-30-[address] Mathieu Virgen Work Phone: [facility] Start: 11-11-2021 Non-patient / Non-visit Dr. Shannon Virgen Work Phone: [facility] Start: 11-10-2021 End: 11-10-[address] Mathieu Virgen [facility] Start: 11-09-2021 Non-patient / Non-visit Dr. Shannon Virgen Work Phone: [facility] Start: 11-09-2021 End: 11-09-[address] Mathieu Virgen [facility] Start: 11-01-2021 End: 11-01-[address] Mathieu Virgen Work Phone: [facility] Start: 10-24-2021 End: 10-24-[address] Mathieu Virgen Work Phone: [facility] Start: 07-13-2021 End: 07-13-2021 Subsequent hospital visit by physician [facility] Work Phone: Radiology Comment on above: SOB (shortness of br eath) [R06.02] Start: 05-25-2021 End: 05-25-2021 Subsequent hospital visit by physician [facility]r [facility] Work Phone: Radiology Comment on above: phone apt Start: 01-24-2021 End: 01-24-2021 Subsequent hospital visit by physician Xr [facility] Work Phone: Radiology Comment on above: SOB (shortness of br eath) [R06.02] Procedures Date Procedure Procedure Detail Performing Clinician Start: 06-12-[address] Mathieu Virgen MD Work Phone: Start: 06-12-2025 Vitamin D, 25-hydrox y measurement Dr. Mathieu Virgen MD Work Phone: Comment on above: Vitamin D StatusDefi ciency: <20 ng/mL (50nmol/L)Insufficiency: 20-30 ng/mL (50-75 nmol/L)Sufficiency: 30-100 ng/mL (75-250 nmol/L)Toxicity: >100 ng/mL (>250 nmol/L) Start: 06-01-[address] Mathieu Virgen MD Work Phone: Start: 05-31-[address] Mathieu Virgen MD Work Phone: Start: 05-31-2025 Plain chest X-ray Dr. Dung Virgen MD Work Phone: Start: 05-31-2025 D-dimer assay, quantitative Dr. Mathieu Virgen MD Work Phone: Comment on above: NORMAL D-Dimer level (<0.50) indicates no DVT or PE. Start: 05-31-[address] Mathieu Virgen MD Work Phone: Start: 04-30-[address] Mathieu [...] Work Phone: Comment on above: Performed at: [place] [id number] Director: Naresh Pruitt PhD, Phone: [phone] Start: 04-08-[address] Roxanna Virgen [...] on above: Test not performed Start: 04-08-2025 [employer] MECHANIC antibody measurement Dr. Mathieu Virgen MD Work [...] w/le ast 12 lds i&r only Osvaldo Travis PA-C Work Phone: Start: 12-25-2023 Adult depression screening assessment Mathieu Virgen MD Work Phone: Start: 09-22-2023 Plain chest X-ray Start: 09-06-2023 Radiologic exam ches t 2 views Anum Jonatan PORCELAIN SLUSHER.CYBER SECURITY SYSTEMS ENGINEER Work Phone: Start: 07-23-2023 Radex hip unilateral [...] ankle complete minimum 3 views Denisha Shepard PORCELAIN SLUSHER.CYBER SECURITY SYSTEMS ENGINEER Work Phone: Start: 11-21-2022 Cardiovascular stres s [...] exam ches t 2 views Fito Haseeb PORCELAIN SLUSHER.CYBER SECURITY SYSTEMS ENGINEER, DNP Work Phone: Start: 07-16-2018 Adult depression screening assessment Mathieu Virgen MD Work Phone: H/O: surgery H/O wrist surgery Dr. Judi Virgen Work Phone: Laboratory test resu lt abnormal Abnormal serum level of lipase Mathieu Virgen MD Work Phone: Plan of Treatment Date Care Activity Detail Author Start: 01-26-2026 Annual PCP Team Chronic Disease Visit Annual PCP Team Chronic Disease Visit [facility] Start: 01-26-2026 BP Controlled (<130/80) BP Controlled (<130/80) [facility] Start: 01-12-2026 Annual PCP Team Chronic Disease Visit Annual PCP Team Chronic Disease Visit [facility] Start: 01-12-2026 BP Controlled (<130/80) BP Controlled (<130/80) [facility] Start: 12-02-2025 Annual PCP Team Chronic Disease Visit Annual PCP Team Chronic Disease Visit [facility] Start: 12-02-2025 Anxiety Screening Anxiety Screening [facility] Start: 12-02-2025 BP Controlled (<130/80) BP Controlled (<130/80) [facility] Start: 12-02-2025 Depression Screening Depression Screening [facility] Start: 12-02-2025 RSV Vaccine (1 - 1-dose 75+ series) RSV Vaccine (1 - 1-dose 75+ series) [facility] Comment on above: Postponed from 2019 (Declined at t his time) Start: 10-31-2025 Annual PCP Team Chronic Disease Visit Annual PCP Team Chronic Disease Visit [facility] Start: 10-31-2025 BP Controlled (<130/80) BP Controlled (<130/80) [facility] Start: 09-23-2025 Annual PCP Team Chronic Disease Visit Annual PCP Team Chronic Disease Visit [facility] Start: 09-23-2025 BP Controlled (<130/80) BP Controlled (<130/80) [facility] Start: 07-31-2025 End: 07-31-2025 Patient encounter procedure 07/31/2025 1:40 PM EST Office Visit [facility] [address] [place] [address] Mathieu Virgen MD [address] [place], [place] [id number] follow up meds [facility] Comment on above: follow up [facility] Start: 07-29-2025 BP Controlled (<130/80) BP Controlled (<130/80) [facility] Start: 07-08-2025 Measurement of respiratory function [facility] Start: 07-08-2025 End: 07-08-2025 Patient encounter procedure Departed Clinical -Pulmonary Services/Neurology Work Phone: Start: 06-20-2025 Annual PCP Team Chronic Disease Visit Annual PCP Team Chronic Disease Visit [facility] Start: 06-20-2025 Covid-19 Vaccine ( season) Covid-19 Vaccine () [facility] Comment on above: Postponed from 05/18/2024 (Declined at t his time) Start: 06-20-2025 Diabetic foot examination Diabetic Foot Exam [facility] Start: 06-20-2025 Glaucoma screening Dilated Retinal Exam [facility] Start: 06-20-2025 Shingrix Vaccine (1 of 2) Shingrix Vaccine (1 of 2) [facility] Comment on above: Postponed from 1994 (Declined at t his time) Start: 06-20-2025 Urine microalbumin profile DTaP,Tdap,Td Vaccine (1 - Tdap) [facility] Comment on above: Postponed from 1963 (Declined at t his time) Start: 06-12-2025 End: 06-12-2025 Patient encounter procedure 06/12/2025 11:00 AM EDT Office Visit [facility] [address] [place] [address] Mathieu Virgen MD [address] [facility] [place] [id number] hospital dc with [facility] 9/15 chest pain [facility] Comment on above: hospital dc with [facility] 9/15 chest pain Start: 06-11-2025 End: 06-11-2025 Evaluation of diagnostic study results [facility] Start: 06-01-2025 [facility] Start: 06-01-2025 Patient discharge [facility] Start: 05-31-2025 Following clinical pathway protocol [facility] Start: 05-31-2025 Ambulation without limitation [facility] Start: 05-31-2025 Assessment of risk of venous thromboembolism [facility] Start: 05-31-2025 Care regimes management [facility] Start: 05-31-2025 Insertion of catheter into peripheral vein [facility] Start: 05-31-2025 Measuring intake and output [facility] Start: 05-31-2025 Notification of physician [facility] Start: 05-31-2025 Oxygen therapy [facility] Start: 05-31-2025 Providing care according to standard [facility] Start: 05-31-2025 Referral to embroiderer hand [facility] Start: 05-31-2025 End: 05-31-2025 [facility] Start: 05-31-2025 Hospital admission, emergency, from emergency room, medical nature [facility] Start: 05-31-2025 Respiratory pathogens DNA and RNA panel - Respiratory specimen by DARRIAN with probe detection [facility] Start: 05-31-2025 Verification routine [facility] Start: 05-31-2025 Admission procedure [facility] Start: 05-31-2025 [facility] Start: 05-31-2025 Patient referral to dietitian [facility] Start: 05-18-2025 Influenza vaccination Influenza Vaccine (#1) [facility] Start: 05-13-2025 End: 08-12-2025 Hemoglobin A1c in Blood HEMOGLOBIN A1C Lab Routine 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) Essential hypertension Expected: 05/13/2025, Expires: 08/12/2025 [facility] Comment on above: Expected: 05/13/2025, Expires: Start: 05-04-2025 End: 05-04-2025 Evaluation of diagnostic study results [facility] Start: 04-30-2025 Patient discharge [facility] Start: 04-30-2025 Consultation [facility] Start: 04-29-2025 Assessment of risk of venous thromboembolism [facility] Start: 04-29-2025 Care regimes management [facility] Start: 04-29-2025 Incentive spirometry [facility] Start: 04-29-2025 Insertion of catheter into peripheral vein [facility] Start: 04-29-2025 Measuring intake and output [facility] Start: 04-29-2025 Notification of physician [facility] Start: 04-29-2025 Oxygen therapy [facility] Start: 04-29-2025 Providing care according to standard [facility] Start: 04-29-2025 Provision of activity privileges [facility] Start: 04-29-2025 Referral for physical therapy [facility] Start: 04-29-2025 Referral to occupational therapist [facility] Start: 04-29-2025 Referral to service [facility] Start: 04-29-2025 End: 04-29-2025 [facility] Start: 04-29-2025 Following clinical pathway protocol [facility] Start: 04-29-2025 [facility] Start: 04-29-2025 Cardiovascular stress test using pharmacologic stress agent Nuclear Stress Test - Chemical [facility] Start: 04-29-2025 Urinalysis complete panel - Urine [facility] Start: 04-29-2025 Verification routine [facility] Start: 04-29-2025 Admission procedure [facility] Start: 04-29-2025 Hospital admission, emergency, from emergency room, medical nature [facility] Start: 04-29-2025 [facility] Start: 02-27-2025 Annual PCP Team Chronic Disease Visit Annual PCP Team Chronic Disease Visit [facility] Start: 02-26-2025 Walking distance 6 minutes [facility] Start: 02-03-2025 Annual PCP Team Chronic Disease Visit Annual PCP Team Chronic Disease Visit [facility] Start: 02-03-2025 BP Controlled (<130/80) BP Controlled (<130/80) [facility] Start: 01-26-2025 End: 01-26-2025 Patient encounter procedure 01/26/2025 2:40 PM EDT Office Visit [facility] [address] [place] [address] Mathieu Virgen MD [address] [place] [address] Blood sugar regulation, blood pressure not too low Family [facility] Comment on above: Blood sugar regulation, blood pressure n ot too low Start: 01-22-2025 End: 01-22-2025 Patient encounter procedure 01/22/2025 3:15 PM EDT Office Visit Podiatry [address] [place] [address] Jamal Mace [address] [place] [address] left foot fracture Podiatry Comment on above: left foot fracture Start: 01-20-2025 [facility] Start: 01-19-2025 [facility] Start: 12-24-2024 Annual PCP Team Chronic Disease Visit Annual PCP Team Chronic Disease Visit [facility] Start: 12-24-2024 Anxiety Screening Anxiety Screening [facility] Start: 12-24-2024 Covid-19 Vaccine () Covid-19 Vaccine () [facility] Comment on above: Postponed from 05/18/2023 (Declined at t his time) Start: 12-24-2024 Depression Screening Depression Screening [facility] Start: 12-19-2024 End: 12-19-2024 Patient encounter procedure 12/19/2024 1:40 PM EDT [facility] [address] [place] [address] Mathieu Virgen MD [address] [place] [address] 6 mo follow up [facility] Comment on above: 6 mo follow up Start: 12-09-2024 Hemoglobin A1c measurement HbA1C [facility] Start: 12-02-2024 End: 12-02-2024 Patient encounter procedure 12/02/2024 3:40 PM EDT Office Visit [facility] [address] [place], [place] [id number] Mathieu Virgen MD [address] [place] [address] All lab results Family [facility] Comment on above: All lab results Start: 12-02-2024 End: 03-03-2025 CBC W Ordered Manual Differential panel - Blood PATHOLOGIST INTERPRETATION WITH CBC AND DIFF Lab Routine Leukocytosis, unspecified type Expected: 12/02/2024, Expires: 03/03/2025 [facility] Work Phone: Comment on above: Expected: 12/02/2024, Expires: Start: 11-27-2024 End: 02-26-2025 CBC panel - Blood by Automated count COMPLETE BLOOD COUNT Lab Routine 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) Expected: 11/27/2024, Expires: 02/26/2025 [facility] Comment on above: Expected: 11/27/2024, Expires: Start: 11-27-2024 End: 02-26-2025 Comprehensive metabolic 2000 panel - Serum or Plasma COMPREHENSIVE METABOLIC PANEL Lab Routine 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) Expected: 11/27/2024, Expires: 02/26/2025 [facility] Comment on above: Expected: 11/27/2024, Expires: Start: 11-27-2024 End: 02-26-2025 Hemoglobin A1c in Blood HEMOGLOBIN A1C Lab Routine 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) Expected: 11/27/2024, Expires: 02/26/2025 [facility] Comment on above: Expected: 11/27/2024, Expires: Start: 11-27-2024 Hepatitis B screening Urine Albumin:Creatinine Ratio [facility] Start: 11-27-2024 Hepatitis B surface antibody level LDL Cholesterol [facility] Start: 11-27-2024 End: 02-26-2025 Lipid 1996 panel - Serum or Plasma LIPID PANEL BASIC Lab Routine Nonobstructive atherosclerosis of coronary artery Pure hypercholesterolemia Expected: 11/27/2024, Expires: 02/26/2025 [facility] Work Phone: Comment on above: Expected: 11/27/2024, Expires: Start: 11-27-2024 End: 02-26-2025 Microalbumin/Creatinine [Mass Ratio] in Urine ALBUMIN/CREATININE RATIO, URINE Lab Routine 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) Expected: 11/27/2024, Expires: 02/26/2025 [facility] Comment on above: Expected: 11/27/2024, Expires: Start: 11-13-2024 End: 02-12-2025 Basic metabolic 2000 panel - Serum or Plasma BASIC METABOLIC PANEL Lab Routine 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) Essential hypertension Expected: 11/13/2024, Expires: 02/12/2025 [facility] Comment on above: Expected: 11/13/2024, Expires: Start: 11-13-2024 End: 02-12-2025 CBC panel - Blood by Automated count COMPLETE BLOOD COUNT Lab Routine 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) Essential hypertension Expected: 11/13/2024, Expires: 02/12/2025 [facility] Work Phone: Comment on above: Expected: 11/13/2024, Expires: Start: 11-13-2024 End: 02-12-2025 Magnesium [Mass/volume] in Serum or Plasma MAGNESIUM Lab Routine 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) Essential hypertension Expected: 11/13/2024, Expires: 02/12/2025 [facility] Comment on above: Expected: 11/13/2024, Expires: Start: 11-07-2024 Hemoglobin A1c measurement HbA1C [facility] Start: 11-03-2024 [facility] Start: 10-31-2024 End: 10-31-2024 Patient encounter procedure 10/31/2024 1:40 PM EST Office Visit Family [facility] [address] [place] [id number] Mathieu Virgen MD [address] [place] [address] 3 month f/u [facility] Comment on above: 3 month f/u Start: 09-23-2024 Evaluation of diagnostic study results [facility] Start: 09-20-2024 [facility] Start: 09-20-2024 [facility] Start: 09-17-2024 Advance Directive Discussion Advance Directive Discussion [facility] Start: 09-17-2024 Medicare Advantage Annual Wellness Visit Medicare Advantage Annual Wellness Visit [facility] Start: 09-06-2024 Annual PCP Team Chronic Disease Visit Annual PCP Team Chronic Disease Visit [facility] Start: 09-06-2024 BP Controlled (<130/80) BP Controlled (<130/80) [facility] Start: 09-06-2024 RSV Vaccine (1 - 1-dose 60+ series) RSV Vaccine (1 - 1-dose 60+ series) [facility] Comment on above: Postponed from 2004 (Declined at t his time) Start: 09-06-2024 RSV Vaccine (1 - 1-dose 75+ series) RSV Vaccine (1 - 1-dose 75+ series) [facility] Comment on above: Postponed from 2019 (Declined at t his time) Start: 09-01-2024 [facility] Start: 07-29-2024 End: 10-28-2024 Basic metabolic 2000 panel - Serum or Plasma BASIC METABOLIC PANEL Lab Routine Systolic congestive heart failure, unspecified HF chronicity (HCC) Expected: 07/29/2024, Expires: 10/28/2024 [facility] Work Phone: Comment on above: Expected: 07/29/2024, Expires: Start: 07-29-2024 End: 10-28-2024 CBC W Auto Differential panel - Blood COMPLETE BLOOD COUNT AND DIFFERENTIAL Lab Routine Systolic congestive heart failure, unspecified HF chronicity (HCC) Expected: 07/29/2024, Expires: 10/28/2024 [facility] Comment on above: Expected: 07/29/2024, Expires: Start: 07-29-2024 End: 10-28-2024 Magnesium [Mass/volume] in Serum or Plasma MAGNESIUM Lab Routine Systolic congestive heart failure, unspecified HF chronicity (HCC) Expected: 07/29/2024, Expires: 10/28/2024 [facility] Comment on above: Expected: 07/29/2024, Expires: 5 Start: 07-25-2024 End: 07-25-2024 ambulatory 07/25/2024 1:15 PM EST Results Only [facility] [address] [place] [address] Labs [facility] Comment on above: Labs Start: 07-23-2024 Annual PCP Team Chronic Disease Visit Annual PCP Team Chronic Disease Visit [facility] Start: 07-23-2024 BP Controlled (<130/80) BP Controlled (<130/80) [facility] Start: 06-25-2024 End: 09-24-2024 Comprehensive metabolic 2000 panel - Serum or Plasma COMP METABOLIC PANEL Lab Routine Psoriatic arthritis ([facility]) Expected: 06/25/2024, Expires: 09/24/2024 [facility] Work Phone: Comment on above: Expected: 06/25/2024, Expires: Start: 06-25-2024 End: 09-24-2024 Hemoglobin A1c in Blood HGB A1C Lab Routine Type 2 diabetes mellitus without complication, with long-term current use of insulin ([facility]) Expected: 06/25/2024, Expires: 09/24/2024 [facility] Work Phone: Comment on above: Expected: 06/25/2024, Expires: Start: 06-23-2024 End: 06-23-2024 Patient encounter procedure 06/23/2024 2:30 PM EDT Office Visit Neurology [address] [place] [address] Abril Duval, PAIGE.[employer] SYSTEM[employer] ENGINEER [address] [place] [address] CJ (obstructive sleep apnea) [G47.33] Neurology Comment on above: CJ (obstructive sleep apnea) [G47.33] Start: 06-20-2024 End: 06-20-2024 Patient encounter procedure 06/20/2024 3:40 PM EDT Office Visit [facility] [address] [place] [address] Mathieu Virgen MD [address] [place] [address] Blood sugar levels [facility] Comment on above: Blood sugar levels Start: 06-20-2024 End: 09-19-2024 25-hydroxyvitamin D3 [Mass/volume] in Serum or Plasma [facility] Work Phone: Comment on above: Expected: 06/20/2024, Expires: Start: 06-20-2024 End: 09-19-2024 CBC W Auto Differential panel - Blood [facility] Comment on above: Expected: 06/20/2024, Expires: Start: 06-20-2024 End: 09-19-2024 Creatine kinase [Enzymatic activity/volume] in Serum or Plasma [facility] Comment on above: Expected: 06/20/2024, Expires: Start: 06-20-2024 End: 09-19-2024 Thyrotropin [Units/volume] in Serum or Plasma [facility] Comment on above: Expected: 06/20/2024, Expires: Start: 06-18-2024 Glaucoma screening Dilated Retinal Exam [facility] Start: 06-09-2024 Annual PCP Team Chronic Disease Visit Annual PCP Team Chronic Disease Visit [facility] Start: 06-09-2024 BP Controlled (<130/80) BP Controlled (<130/80) [facility] Start: 06-06-2024 3 comp foot exam completed Diabetic Foot Exam [facility] Start: 06-06-2024 Annual PCP Team Chronic Disease Visit Annual PCP Team Chronic Disease Visit [facility] Start: 06-06-2024 Diabetic foot examination Diabetic Foot Exam [facility] Start: 06-06-2024 Hepatitis B Vaccine (1 of 3 - Risk 3-dose series) Hepatitis B Vaccine (1 of 3 - Risk 3-dose series) [facility] Comment on above: Postponed from 2004 (Declined at t his time) Start: 05-18-2024 ANNUAL PCP TEAM CHRONIC DISEASE VISIT ANNUAL PCP TEAM CHRONIC DISEASE VISIT [facility] Start: 05-18-2024 BP CONTROLLED (<130/80) BP CONTROLLED (<130/80) [facility] Start: 05-18-2024 Covid-19 Vaccine ( season) Covid-19 Vaccine ( season) [facility] Start: 05-18-2024 Covid-19 Vaccine () Covid-19 Vaccine () [facility] Start: 05-18-2024 Influenza vaccination Influenza Vaccine (#1) [facility] Start: 05-01-2024 ANNUAL PCP TEAM CHRONIC DISEASE VISIT ANNUAL PCP TEAM CHRONIC DISEASE VISIT [facility] Start: 05-01-2024 BP CONTROLLED (<130/80) BP CONTROLLED (<130/80) [facility] Start: 04-30-2024 COVID-19 VACCINE (#1) COVID-19 VACCINE (#1) [facility] Comment on above: Postponed from 1944 (Declined at t his time) Start: 04-30-2024 SHINGRIX VACCINE (1 of 2) SHINGRIX VACCINE (1 of 2) [facility] Comment on above: Postponed from 1994 (Insurance Cov erage) Start: 04-30-2024 Urine microalbumin profile [facility] Comment on above: Postponed from 1963 (Insurance Cov erage) Start: 04-30-2024 End: 04-30-2024 ambulatory 04/30/2024 9:45 AM EDT OT/PT/Speech Visit [facility] [address] [place], [place] [id number] Rosa Orta PT Venous incompetence [I87.2] [facility] Comment on above: Venous incompetence [I87.2] Start: 04-14-2024 End: 04-14-2024 Patient encounter procedure 04/14/2024 1:40 PM EDT Office Visit [facility] [address] [place], [place] [address] Julianna Hood APRN.[employer] ENGINEER [address] [place], [place] [id number] Blood in Urine [facility] Comment on above: Blood in Urine Start: 04-10-2024 End: 04-10-2024 Patient encounter procedure 04/10/2024 11:40 AM EDT Office Visit [facility] [address] [facility] [place] [address] Osvaldo Travis PA-C [address] [place] [address] 6 week f/u Family [facility] Comment on above: 6 week f/u Start: 03-19-2024 End: 03-19-2024 Patient encounter procedure 03/19/2024 12:30 PM EDT Office Visit Vasculary Surgery [address] [place] [address] 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, 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]; Venous incompetence [I87.2] [facility] Comment on above: 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, 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]; Venous incompetence [I87.2] Start: 03-17-2024 End: 03-17-2024 Patient encounter procedure 03/17/2024 2:40 PM EDT Office Visit Cardiology [address] [place] [address] Bilateral leg edema [R60.0]; SOB (shortness of breath) [R06.02]; Weight gain [R63.5] Cardiology Comment on above: Bilateral leg edema [R60.0]; SOB (shortn ess of breath) [R06.02]; Weight gain [R63.5] Start: 03-05-2024 BP CONTROLLED (<130/80) BP CONTROLLED (<130/80) [facility] Start: 03-02-2024 ANNUAL PCP TEAM CHRONIC DISEASE VISIT ANNUAL PCP TEAM CHRONIC DISEASE VISIT [facility] Start: 03-02-2024 BP CONTROLLED (<130/80) BP CONTROLLED (<130/80) [facility] Start: 02-28-2024 End: 05-29-2024 Basic metabolic 2000 panel - Serum or Plasma [facility] Work Phone: Comment on above: Expected: 02/28/2024, Expires: Start: 02-28-2024 End: 05-29-2024 Cortisol [Mass/volume] in Serum or Plasma CORTISOL, SERUM Lab Routine Weight gain Hypersomnolence Cushingoid facies Expected: 02/28/2024, Expires: 05/29/2024 [facility] Comment on above: Expected: 02/28/2024, Expires: Start: 02-28-2024 Hemoglobin A1c measurement HbA1C [facility] Start: 02-28-2024 End: 05-29-2024 Natriuretic peptide.B prohormone N-Terminal [Mass/volume] in Serum or Plasma [facility] Comment on above: Expected: 02/28/2024, Expires: Start: 02-28-2024 End: 02-28-2024 Patient encounter procedure 02/28/2024 11:00 AM EDT Office Visit [facility] [address] [place], [place] [id number] Osvaldo Travis PA-C [address] [place], [place] [address] 4 week follow up [facility] Comment on above: 4 week follow up Start: 02-17-2024 ANNUAL PCP TEAM CHRONIC DISEASE VISIT ANNUAL PCP TEAM CHRONIC DISEASE VISIT [facility] Start: 02-04-2024 End: 05-05-2024 Comprehensive metabolic 2000 panel - Serum or Plasma [facility] Work Phone: Comment on above: Expected: 02/04/2024, Expires: Start: 02-04-2024 End: 05-05-2024 Natriuretic peptide.B prohormone N-Terminal [Mass/volume] in Serum or Plasma [facility] Comment on above: Expected: 02/04/2024, Expires: Start: 02-04-2024 End: 05-05-2024 Thyrotropin [Units/volume] in Serum or Plasma [facility] Comment on above: Expected: 02/04/2024, Expires: Start: 01-20-2024 ANNUAL PCP TEAM CHRONIC DISEASE VISIT ANNUAL PCP TEAM CHRONIC DISEASE VISIT [facility] Start: 12-05-2023 End: 02-04-2024 Basic metabolic 2000 panel - Serum or Plasma BASIC METABOLIC PNL Lab Routine Type 2 diabetes mellitus with microalbuminuria, with long-term current use of insulin (HCC) Expected: 12/05/2023, Expires: 02/04/2024 [facility] Work Phone: Comment on above: Expected: 12/05/2023, Expires: Start: 12-05-2023 End: 02-04-2024 CBC W Auto Differential panel - Blood CBC + DIFF Lab Routine Type 2 diabetes mellitus with microalbuminuria, with long-term current use of insulin (HCC) Expected: 12/05/2023, Expires: 02/04/2024 [facility] Work Phone: Comment on above: Expected: 12/05/2023, Expires: Start: 12-05-2023 End: 02-04-2024 Hemoglobin A1c in Blood HGB A1C Lab Routine Type 2 diabetes mellitus with microalbuminuria, with long-term current use of insulin (HCC) Expected: 12/05/2023, Expires: 02/04/2024 [facility] Work Phone: Comment on above: Expected: 12/05/2023, Expires: Start: 12-05-2023 End: 02-04-2024 Lipid 1996 panel - Serum or Plasma LIPID PANEL BASIC Lab Routine Mixed hyperlipidemia Expected: 12/05/2023, Expires: 02/04/2024 [facility] Work Phone: Comment on above: Expected: 12/05/2023, Expires: 4 Start: 11-30-2023 ANNUAL PCP TEAM CHRONIC DISEASE VISIT ANNUAL PCP TEAM CHRONIC DISEASE VISIT [facility] Start: 11-28-2023 End: 02-27-2024 ALBUMIN/CREAT RATIO RND UR ALBUMIN/CREAT RATIO RND UR Lab Routine Type 2 diabetes mellitus without complication, with long-term current use of insulin (HCC) Expected: 11/28/2023, Expires: 02/27/2024 [facility] Work Phone: Comment on above: Expected: 11/28/2023, Expires: 4 Start: 11-28-2023 Hepatitis B screening URINE ALBUMIN:CREATININE RATIO [facility] Start: 11-28-2023 Hepatitis B surface antibody level LDL CHOLESTEROL [facility] Start: 11-16-2023 Hemoglobin A1c measurement HbA1C [facility] Start: 11-16-2023 Hemoglobin A1c/Hemoglobin.total in Blood HbA1C [facility] Start: 09-22-2023 [facility] Start: 09-22-2023 [facility] Start: 09-17-2023 Advance Directive Discussion Advance Directive Discussion [facility] Start: 09-17-2023 Depression Assessment Depression Assessment [facility] Start: 06-01-2023 End: 08-01-2023 Hemoglobin A1c in Blood HGB A1C Lab Routine Type 2 diabetes mellitus with microalbuminuria, with long-term current use of insulin (HCC) Expected: 06/01/2023, Expires: 08/01/2023 [facility] Work Phone: Comment on above: Expected: 06/01/2023, Expires: 3 Start: 05-31-2023 3 comp foot exam completed DIABETIC FOOT EXAM [facility] Start: 05-31-2023 ANNUAL PCP TEAM CHRONIC DISEASE VISIT ANNUAL PCP TEAM CHRONIC DISEASE VISIT [facility] Start: 05-30-2023 Hemoglobin A1c/Hemoglobin.total in Blood HBA1C [facility] Start: 05-30-2023 End: 07-30-2023 Lipid 1996 panel - Serum or Plasma LIPID PANEL BASIC Lab Routine Type 2 diabetes mellitus with microalbuminuria, with long-term current use of insulin (HCC) Expected: 05/30/2023, Expires: 07/30/2023 [facility] Work Phone: Comment on above: Expected: 05/30/2023, Expires: 3 Start: 05-18-2023 End: 07-18-2023 Comprehensive metabolic 2000 panel - Serum or Plasma [facility] Work Phone: Comment on above: Expected: 05/18/2023, Expires: 3 Start: 05-18-2023 End: 07-18-2023 Creatine kinase [Enzymatic activity/volume] in Serum or Plasma [facility] Work Phone: Comment on above: Expected: 05/18/2023, Expires: 3 Start: 05-18-2023 Influenza vaccination [facility] Start: 05-18-2023 End: 07-18-2023 Urinalysis complete panel - Urine [facility] Work Phone: Comment on above: Expected: 05/18/2023, Expires: 3 Start: 05-18-2023 End: 07-18-2023 URINALYSIS, DIPSTICK ONLY [facility] Work Phone: Comment on above: Expected: 05/18/2023, Expires: 3 Start: 03-03-2023 Adult depression screening assessment DEPRESSION SCREENING [facility] Start: 03-03-2023 ANNUAL PCP TEAM CHRONIC DISEASE VISIT ANNUAL PCP TEAM CHRONIC DISEASE VISIT [facility] Start: 03-03-2023 BP CONTROLLED (<130/80) BP CONTROLLED (<130/80) [facility] Start: 03-02-2023 End: 05-02-2023 Comprehensive metabolic 2000 panel - Serum or Plasma [facility] Work Phone: Comment on above: Expected: 03/02/2023, Expires: 3 Start: 03-02-2023 End: 05-02-2023 Lipase [Enzymatic activity/volume] in Serum or Plasma [facility] Work Phone: Comment on above: Expected: 03/02/2023, Expires: 3 Start: 01-27-2023 BP CONTROLLED (<130/80) BP CONTROLLED (<130/80) [facility] Start: 11-29-2022 End: 01-29-2023 CBC W Ordered Manual Differential panel - Blood PATHOLOGIST INTERPRETATION WITH CBC AND DIFF Lab Routine Leukocytosis, unspecified type Expected: 11/29/2022, Expires: 01/29/2023 [facility] Work Phone: Comment on above: Expected: 11/29/2022, Expires: 3 Start: 11-27-2022 End: 01-27-2023 ALBUMIN/CREAT RATIO RND UR [facility] Work Phone: Comment on above: Expected: 11/27/2022, Expires: 3 Start: 11-27-2022 End: 01-27-2023 CBC W Auto Differential panel - Blood [facility] Work Phone: Comment on above: Expected: 11/27/2022, Expires: 3 Start: 11-27-2022 End: 01-27-2023 Comprehensive metabolic 2000 panel - Serum or Plasma [facility] Work Phone: Comment on above: Expected: 11/27/2022, Expires: 3 Start: 11-27-2022 End: 01-27-2023 Hemoglobin A1c in Blood [facility] Work Phone: Comment on above: Expected: 11/27/2022, Expires: 3 Start: 11-21-2022 Patient discharge [facility] Start: 11-21-2022 ANNUAL PCP TEAM CHRONIC DISEASE VISIT ANNUAL PCP TEAM CHRONIC DISEASE VISIT [facility] Start: 11-21-2022 BP CONTROLLED (<130/80) BP CONTROLLED (<130/80) [facility] Start: 11-21-2022 Following clinical pathway protocol [facility] Start: 11-21-2022 Assessment of risk of venous thromboembolism [facility] Start: 11-21-2022 Care regimes management [facility] Start: 11-21-2022 Fall prevention [facility] Start: 11-21-2022 Incentive sp[facility]rometry [facility] [facility] Start[facility]-21-2022 Inhalation therapy procedure [facility] Start: 11-21-2022 Insertion of catheter into peripheral vein [facility] Start: 11-21-2022 Introduction of urinary catheter [facility] Start: 11-21-2022 Measuring intake and output [facility] Start: 11-21-2022 Oxygen therapy [facility] Start: 11-21-2022 Providing care according to standard [facility] Start: 11-21-2022 Provision of activity privileges [facility] Start: 11-21-2022 Referral to service [facility] Start: 11-21-2022 [facility] Start: 11-21-2022 Admission procedure [facility] Start: 11-21-2022 [facility] Start: 10-18-2022 Glaucoma screening Dilated Retinal Exam [facility] Start: 10-18-2022 Hepatitis C antibody, confirmatory test DILATED RETINAL EXAM [facility] Start: 09-17-2022 ADVANCE DIRECTIVE DISCUSSION ADVANCE DIRECTIVE DISCUSSION [facility] Start: 09-17-2022 DEPRESSION ASSESSMENT DEPRESSION ASSESSMENT [facility] Start: 08-30-2022 End: 10-30-2022 Basic metabolic 2000 panel - Serum or Plasma BASIC METABOLIC PNL Lab Routine Type 2 diabetes mellitus without complication, with long-term current use of insulin (HCC) Expected: 08/30/2022, Expires: 10/30/2022 [facility] Work Phone: Comment on above: Expected: 08/30/2022, Expires: 3 Start: 08-30-2022 End: 10-30-2022 CBC W Ordered Manual Differential panel - Blood PATHOLOGIST INTERPRETATION WITH CBC AND DIFF Lab Routine Monocytosis Expected: 08/30/2022, Expires: 10/30/2022 [facility] Work Phone: Comment on above: Expected: 08/30/2022, Expires: 3 Start: 08-30-2022 End: 10-30-2022 Hemoglobin A1c in Blood HGB A1C Lab Routine Type 2 diabetes mellitus with microalbuminuria, with long-term current use of insulin (HCC) Expected: 08/30/2022, Expires: 10/30/2022 [facility] Work Phone: Comment on above: Expected: 08/30/2022, Expires: 3 Start: 08-29-2022 Hemoglobin A1c/Hemoglobin.total in Blood HBA1C [facility] Start: 08-25-2022 Hemoglobin A1c/Hemoglobin.total in Blood HBA1C [facility] Start: 08-16-2022 Hepatitis B screening URINE ALBUMIN:CREATININE RATIO [facility] Start: 08-16-2022 Hepatitis B surface antibody level LDL CHOLESTEROL [facility] Start: 06-03-2022 End: 08-03-2022 Basic metabolic 2000 panel - Serum or Plasma BASIC METABOLIC PNL Lab Routine Type 2 diabetes mellitus with microalbuminuria, with long-term current use of insulin (HCC) Expected: 06/03/2022, Expires: 08/03/2022 [facility] Work Phone: Comment on above: Expected: 06/03/2022, Expires: 2 Start: 06-03-2022 End: 08-03-2022 CBC W Auto Differential panel - Blood CBC + DIFF Lab Routine Type 2 diabetes mellitus with microalbuminuria, with long-term current use of insulin (HCC) Expected: 06/03/2022, Expires: 08/03/2022 [facility] Work Phone: Comment on above: Expected: 06/03/2022, Expires: 2 Start: 06-03-2022 End: 08-03-2022 Hemoglobin A1c in Blood HGB A1C Lab Routine Type 2 diabetes mellitus with microalbuminuria, with long-term current use of insulin (HCC) Expected: 06/03/2022, Expires: 08/03/2022 [facility] Work Phone: Comment on above: Expected: 06/03/2022, Expires: 2 Start: 06-03-2022 End: 08-03-2022 Hepatitis C virus Ab [Presence] in Serum HEP C AB IA W/CONF SCRN Lab Routine Need for hepatitis C screening test Expected: 06/03/2022, Expires: 08/03/2022 [facility] Work Phone: Comment on above: Expected: 06/03/2022, Expires: 2 Start: 05-18-2022 Influenza vaccination INFLUENZA (#1) [facility] Start: 05-06-2022 3 comp foot exam completed DIABETIC FOOT EXAM [facility] Start: 04-08-2022 [facility] Work Phone: Start: 02-11-2022 End: 04-13-2022 Hemoglobin A1c/Hemoglobin.total in Blood [facility] Comment on above: Expected: 02/11/2022, Expires: 2 Start: 01-12-2022 End: 03-14-2022 Basic metabolic 2000 panel - Serum or Plasma BASIC METABOLIC PNL Lab Routine Type 2 diabetes mellitus without complication, with long-term current use of insulin (HCC) Expected: 01/12/2022, Expires: 03/14/2022 [facility] Work Phone: Comment on above: Expected: 01/12/2022, Expires: 2 Start: 09-17-2021 ADVANCE DIRECTIVE DISCUSSION ADVANCE DIRECTIVE DISCUSSION [facility] Start: 09-17-2021 DEPRESSION ASSESSMENT DEPRESSION ASSESSMENT [facility] Start: 07-16-2019 Adult depression screening assessment DEPRESSION SCREENING [facility] Start: 2019 RSV Vaccine (1 - 1-dose 75+ series) RSV Vaccine (1 - 1-dose 75+ series) [facility] Start: 2004 Hepatitis B Vaccine (1 of 3 - Risk 3-dose series) Hepatitis B Vaccine (1 of 3 - Risk 3-dose series) [facility] Start: 2004 RSV Vaccine (1 - 1-dose 60+ series) RSV Vaccine (1 - 1-dose 60+ series) [facility] Start: 1994 SHINGRIX VACCINE (1 of 2) SHINGRIX VACCINE (1 of 2) [facility] Start: 1963 Urine microalbumin profile [facility] Start: 1962 BP CONTROLLED (<130/80) BP CONTROLLED (<130/80) [facility] Start: 1962 HEPATITIS C SCREENING HEPATITIS C SCREENING [facility] Start: 1950 PNEUMOCOCCAL: 65+ (1 - PCV) PNEUMOCOCCAL: 65+ (1 - PCV) [facility] Start: 1949 COVID-19 VACCINE (#1) COVID-19 VACCINE (#1) [facility] Start: 1949 COVID-19 VACCINE (1) COVID-19 VACCINE (1) [facility] Start: 1944 COVID-19 VACCINE (#1) COVID-19 VACCINE (#1) [facility] Ambulatory ECG [facility] CBC W Auto Different ial panel - Blood CBC + DIFF Lab Routine Near syncope 05/18/2023 4:29 PM EDT [facility] Work Phone: COVID & INFLUENZA A/ B & RSV NAAT, ROUTINE COVID & INFLUENZA A/B & RSV NAAT, ROUTINE Microbiology Routine Suspected COVID-19 virus infection 06/09/2023 11:25 AM EDT [facility] Work Phone: End: 05-18-2024 ECG COMPLETE ECG COMPLETE ECG Routine Near syncope Fall, initial encounter 1 Occurrences starting 05/18/2023 until 05/18/2024 [facility] Work Phone: Comment on above: 1 Occurrences starting 05/18/2023 until 05/18/2024 ECG COMPLETE ECG COMPLETE ECG Routine SOB (shortness of breath) Bilateral leg edema Weight increase 02/04/2024 11:01 AM EDT [facility] End: 02-27-2025 Echocardiography ECHO Cardiology Routine Bilateral leg edema SOB (shortness of breath) Weight gain 1 Occurrences starting 02/28/2024 until 02/27/2025 [facility] Comment on above: 1 Occurrences starting 02/28/2024 until 02/27/2025 Ferritin [Mass/volum e] in Serum or Plasma [facility] Lipid 1996 panel - S leatha or Plasma LIPID PANEL BASIC Lab Routine Type 2 diabetes mellitus with microalbuminuria, with long-term current use of insulin (HCC) 11/27/2022 9:20 AM EDT [facility] Work Phone: Measurement of respiratory function [facility] Measurement of respiratory function [facility] Patient Education [facility] Work Phone: Patient referral [facility] Work Phone: ROUTINE FLU A/B + RSV ROUTINE FL U A/B + RSV Lab Routine Suspected COVID-19 virus infection 06/09/2023 11:25 AM EDT [facility] Work Phone: SARS-CoV-2 (COVID-19 ) RNA [Presence] in Respiratory specimen by DARRIAN with probe detection COVID NAAT, ROUTINE Microbiology Routine Acute upper respiratory infection 05/18/2023 4:19 PM EDT [facility] Work Phone: SARS-CoV-2 (COVID-19 ) RNA [Presence] in Respiratory specimen by DARRIAN with probe detection COVID NAAT, UPPER RESPIRATORY, ROUTINE Microbiology Routine Suspected COVID-19 virus infection 06/09/2023 11:25 AM EDT [facility] Work Phone: End: 02-27-2025 US Vein - bilateral US VENOUS INCOMPETENCY [facility] Vascular Lab Routine Varicose veins of both lower extremities with inflammation 1 Occurrences starting 02/28/2024 until 02/27/2025 [facility] Comment on above: 1 Occurrences starting 02/28/2024 until 02/27/2025 Walking distance 6 minutes [facility] End: 03-05-2025 XR Chest PA and Lateral XR CHEST 2V FRONTAL/LAT Radiology Routine SOB (shortness of breath) Bilateral leg edema Weight increase 1 Occurrences starting 02/04/2024 until 03/05/2025 [facility] Comment on above: 1 Occurrences starting 02/04/2024 until 03/05/2025 XR Chest PA and Lateral XR CHEST 2V FRONTAL/LAT Radiology Routine SOB (shortness of breath) Bilateral leg edema Weight increase 02/04/2024 12:26 PM EDT [facility] XR Foot - left AP an d Lateral and oblique XR FOOT GENERAL 3V AP/LAT/OBL LEFT Radiology Routine Closed fracture of foot, unspecified laterality, initial encounter 01/22/2025 4:13 PM EDT [facility] Work Phone: End: 02-21-2026 XR Foot - left AP and Lateral and oblique XR FOOT GENERAL 3V AP/LAT/OBL LEFT Radiology Routine Closed fracture of foot, unspecified laterality, initial encounter 1 Occurrences starting 01/22/2025 until 02/21/2026 [facility] Work Phone: Comment on above: 1 Occurrences starting 01/22/2025 until 02/21/2026 End: 08-21-2024 XR HIP GENERAL 3V PELV/AP/LAT RIGHT XR HIP GENERAL 3V PELV/AP/LAT RIGHT Radiology Routine Acute hip pain, right 1 Occurrences starting 07/23/2023 until 08/21/2024 [facility] Work Phone: Comment on above: 1 Occurrences starting 07/23/2023 until 08/21/2024 XR HIP GENERAL 3V PELV/AP/LAT RIGHT XR HIP GENERAL 3V PELV/AP/LAT RIGHT Radiology Routine Acute hip pain, right 07/23/2023 3:10 PM EST [facility] Work Phone: [facility] Immunizations Immunization Date Immunization Notes Care Provider Rashida light 06-20-2024 influenza, high dose seasonal, preservative-free Zoila Wright [employer] Work Phone: [facility] 06-20-2024 influenza virus vacc ine, unspecified formulation Mathieu Virgen MD Work Phone: [facility] 06-06-2023 influenza (HD-IIV4) vaccine, age 65+ yr, high dose, quadrivalent, PF (FLUZONE HIGH-DOSE) Mathieu Virgen MD Work Phone: [facility] 06-06-2023 influenza virus vacc ine, unspecified formulation FERNY Travis PA-C Work Phone: [facility] 05-31-2022 influenza, high-dose , quadrivalent vaccine (FLUZONE HIGH DOSE QUADRIVALENT) Mathieu Virgen MD Work Phone: [facility] 05-31-2022 influenza virus vacc ine, unspecified formulation Mathieu Virgen MD Work Phone: [facility] 06-17-2021 influenza, injectabl e, quadrivalent, preservative free [facility] 06-17-2021 influenza, seasonal, injectable Mathieu Virgen MD Work Phone: [facility] 06-17-2021 influenza, seasonal, injectable, preservative free Mathieu Virgen MD Work Phone: [facility] 07-26-2020 influenza, high-dose , quadrivalent vaccine (FLUZONE HIGH DOSE QUADRIVALENT) Mathieu Virgen MD Work Phone: [facility] 08-21-2019 influenza, injectabl e, quadrivalent, preservative free [facility] 08-21-2019 influenza, seasonal, injectable Mathieu Virgen MD Work Phone: [facility] 08-21-2019 influenza, seasonal, injectable, preservative free Mathieu Virgen MD Work Phone: [facility] Work Phone: 07-04-2019 influenza, high dose seasonal, preservative-free Mathieu Virgen MD Work Phone: [facility] 07-16-2018 influenza, high dose seasonal, preservative-free Mathieu Virgen MD Work Phone: [facility] 08-27-2017 influenza, high dose seasonal, preservative-free Mathieu Virgen MD Work Phone: [facility] 08-17-2016 pneumococcal polysaccharide vaccine, 23 valent Mathieu Virgen MD Work Phone: [facility] 06-14-2016 influenza, high dose seasonal, preservative-free Mathieu Virgen MD Work Phone: [facility] Work Phone: 07-14-2015 influenza, high dose seasonal, preservative-free Mathieu Virgen MD Work Phone: [facility] Work Phone: 06-16-2015 pneumococcal conjuga te vaccine, 13 valent Mathieu Virgen MD Work Phone: [facility] Work Phone: 06-25-2014 influenza, seasonal, injectable Mathieu Virgen MD Work Phone: [facility] 07-12-2013 influenza virus vacc ine, unspecified formulation Mathieu Virgen MD Work Phone: [facility] 06-15-2012 influenza virus vacc ine, unspecified formulation Mathieu Virgen MD Work Phone: [facility] Work Phone: 06-07-2011 influenza virus vacc ine, unspecified formulation Mathieu Virgen MD Work Phone: [facility] Work Phone: 07-02-2010 influenza virus vacc ine, unspecified formulation Mathieu Virgen MD Work Phone: [facility] Work Phone: 07-14-2009 pneumococcal polysaccharide vaccine, 23 valent Mathieu Virgen MD Work Phone: [facility] 06-09-2009 influenza virus vacc ine, unspecified formulation Mathieu Virgen MD Work Phone: [facility] 07-22-2008 influenza virus vacc ine, unspecified formulation Mathieu Virgen MD Work Phone: [facility] 07-27-2007 influenza virus vacc ine, unspecified formulation Mathieu Virgen MD Work Phone: [facility] Work Phone: 07-23-2006 influenza virus vacc ine, unspecified formulation Mathieu Virgen MD Work Phone: [facility] Work Phone: 07-13-2005 influenza virus vacc ine, unspecified formulation Mathieu Virgen MD Work Phone: [facility] Work Phone: Payers Date Payer Category Payer Self-pay [id number] 2014 Medicare (Managed Care) PRIMETIM E [id number] 2014 Unknown PRIMETIME PRIMET FRANCA HMO POS [id number] 2014-Present [phone] [address] [place] [id number] O [id number] 2014 Unknown [id number] [id number]. [id number] 2014 Unknown [id number] Unknown [id number] 2.16.840.1.658807.3.579. 2.462 Unknown [id number] 2.16.840.1.431584.3.579. 2.462 Unknown [id number] 2.16.840.1.227666.3.579. 2.462 Unknown [id number] 2.16.840.1.853152.3.579. 2.462 Unknown [id number] 2.16.840.1.585406.3.579. 2.462 Unknown [id number] 2..840.1.331663.3.579. 2.462 Unknown [id number] 2.16840.1.930649.3.579. 2.462 Unknown [id number] 2.16.840.1.213444.3.579. 2.462 Unknown [id number] 2.16.840.1.650999.3.579. 2.462 Unknown [id number] 2.16840.1.815768.3.579. 2.462 Unknown [id number] 2.840.1.332190.3.579. 2.462 Unknown [id number] 2.16.840.1.392418.3.579. 2.462 Unknown [id number] 2.16.840.1.115164.3.579. 2.462 Unknown [id number] 2.16.840.1.007568.3.579. 2.462 Unknown [id number] 2.16.840.1.141099.3.579. 2.462 Unknown [id number] 2.16.840.1.969784.3.579. 2.462 Unknown [id number] 2.16.840.1.394786.3.579. 2.462 Unknown [id number] 2.16.840.1.194527.3.579. 2.462 Unknown [id number] 2.16.840.1.879782.3.579. 2.462 Unknown [id number] 2.16.840.1.681518.3.579. 2.462 Unknown [id number] 2.16.840.1.040550.3.579. 2.462 Unknown [id number] 2.16.840.1.177672.3.579. 2.462 Unknown [id number] 2.16.840.1.228701.3.579. 2.462 Unknown [id number] 2..840.1.772958.3.579. 2.462 Unknown [id number] 2..840.1.386351.3.579. 2.462 Unknown [id number] 2.16.840.1.128817.3.579. 2.462 Unknown [id number] 2.16.840.1.381102.3.579. 2.462 Unknown [id number] 2.16.840.1.293176.3.579. 2.462 Unknown [id number] 2.16.840.1.746708.3.579. 2.462 Unknown [id number] 2.16.840.1.986261.3.579. 2.462 Unknown [id number] 2.16.840.1.802948.3.579. 2.462 Unknown [id number] 2.16.840.1.904685.3.579. 2.462 Unknown [id number] 2.16.840.1.427747.3.579. 2.462 Unknown [id number] 2.16.840.1.478093.3.579. 2.462 Unknown [id number] 2.16.840.1.950730.3.579. 2.462 Unknown [id number] 2.16.840.1.250295.3.579. 2.462 Unknown [id number] 2.16.840.1.392827.3.579. 2.462 Unknown [id number] 2.16.840.1.598537.3.579. 2.462 Unknown [id number] 2.16.840.1.341562.3.579. 2.462 Unknown [id number] 2.16.840.1.975001.3.579. 2.462 Unknown [id number] 2.16.840.1.030253.3.579. 2.462 Unknown [id number] 2.16.840.1.959652.3.579. 2.462 Unknown [id number] 2.16.840.1.306029.3.579. 2.462 Unknown [id number] 2.16.840.1.062796.3.579. 2.462 Unknown [id number] 2.16.840.1.478636.3.579. 2.462 Unknown [id number] 2.16.840.1.651429.3.579. 2.462 Unknown [id number] 2.16.840.1.709718.3.579. 2.462 Social History Date Type Detail Facility Start: 08-17-2016 End: 05-31-2025 Tobacco smoking status NHIS Ex-smoker [facility] Start: 09-17-1970 End: 09-17-1980 History of tobacco use Current smoker [facility] Start: 09-17-1970 End: 09-17-1980 History of tobacco use Cigarette Smoker [facility] Start: 11-21-2021 End: 01-22-2025 Alcohol intake Current non-drinker of alcohol (finding) [facility] Start: 1945 Sex Assigned At Not on file [facility] Start: 12-25-2020 End: 05-31-2022 Exposure to SARS-CoV-2 (event) Not sure [facility] Start: 01-30-2022 End: 09-22-2023 Tobacco smoking status NHIS Unknown if ever smoked [facility] Start: 10-26-2021 Cigarettes [facility] Start: 1945 Sex Assigned At Male [facility] Start: 03-29-2022 End: 04-08-2022 Exposure to SARS-CoV-2 (event) Unable to assess [facility] Work Phone: Start: 08-17-2016 End: 01-18-2023 Cigarettes smoked current (pack per day) - Reported 2 [facility] Start: 08-17-2016 End: 06-20-2024 Tobacco use and exposure Smokeless tobacco non-user [facility] Start: 01-19-2023 History SDOH Alcohol Frequency 1 [facility] Start: 01-19-2023 History SDOH Alcohol Std Drinks 0 [facility] Start: 01-19-2023 History SDOH Social Connections Phone 5 [facility] Start: 01-19-2023 History SDOH Social Connections Get Together 3 [facility] Start: 01-19-2023 History SDOH Social Connections Membership 2 [facility] Start: 01-19-2023 History SDOH Social Connections Living 4 [facility] Start: 01-18-2023 End: 06-19-2024 Social connection and isolation panel [facility] Do you belong to any clubs or organizations such as yarsani groups, unions, fraternal or athletic groups, or school groups? No [facility] Are you now , , , , never or living with a partner? [facility] How often to you hav e a drink containing alcohol? Never [facility] Start: 08-18-[address] inks containing alcohol do you have on a typical day? Patient does not drink [facility] How hard is it for y ou to pay for the very basics like food, housing, medical care, and heating Not very hard [facility] Do you feel stress - tense, restless, nervous, or anxious, or unable to sleep at night because your mind is troubled all the time - these days [OSQ] Not at all [facility] (I/We) worried whenoel er (my/our) food would run out before (I/we) got money to buy more. Never true [facility] Start: 01-18-2023 Gender identity Identifies as male gender (finding) [facility] Start: 12-08-2024 End: 12-09-2024 Sex Male (finding) [facility] Medical Equipment Procedure Code Equipment Code Equipment Original Text Equipment Identifier Dates Total cholecystectomy with exploration of common bile duct CLIP,HEMMASOOD WEIR FDA Start: 11-19-2019 Total cholecystectomy with exploration of common bile duct CLIP,HEMMASOOD CHRISTIAN WELILIA FDA Start: 11-19-2019 Total cholecystectomy [...] cholecystectomy with exploration of common bile duct CLIP,[employer] Services[employer] WEIR FDA Start: 11-19-2019 Total cholecystectomy with exploration of common bile duct CLIP,PRABHA WEIR FDA Start: 11-19-2019 Total cholecystectomy with exploration of common bile duct CLIP,PRABHA WEIR FDA Start: 11-19-2019 Total cholecystectomy with exploration of common bile duct CLIP,PRABHA WEIR FDA Start: 11-19-2019 Total cholecystectomy with exploration of common bile duct CLIP,[employer] ServicesMASOOD [facility] FDA Start: 11-19-2019 Total cholecystectomy with exploration of common bile duct CLIP,[employer] Financial ServicesANTHONYQuoforeLILIA FDA Start: 11-19-2019 1 Each twice daily. Accucheck compact test strips, dx-NIDDM [id number] Start: 08-20-2013 Comment on above: 1 Each twice daily. Accucheck compact test strips, dx-NIDDM [id number], [id number], [id number] Start: 08-20-2013 End: 06-20-2024 Comment on above: 1 Each once daily. D X: E11.9 Insulin: Yes Test blood sugar(s) 1 times daily. Dx: 250.00. Insulin: Yes Goals Date Patient Goal Desired Activity /State Functional Status Date Assessment Result Facility 06-01-2025 Functional status Ambulates [facility] Work Phone: 05-31-2025 Functional status Tolerates Activity Fair [facility] Work Phone: 05-31-2025 Functional status None [facility] Work Phone: 04-30-2025 Functional status Ambulates [facility] Work Phone: 04-29-2025 Functional status None [facility] Work Phone: 11-21-2022 Functional status Activity Abili ty Independent [facility] Work Phone: 03-31-2015 Are you deaf, or do you have serious difficulty hearing No 03/31/2015 12:49 PM Gregoria Martinez RN No [facility] 03-31-2015 Are you blind, or do you have serious difficulty seeing, even when wearing glasses No 03/31/2015 12:49 PM EDT Gregoria Moeller RN No [facility] 03-31-2015 Do you have serious difficulty walking or climbing stairs No 03/31/2015 12:49 PM EDT Gregoria Moeller RN No [facility] 03-31-2015 Do you have difficul ty dressing or bathing No 03/31/2015 12:49 PM EDT Gregoria Moeller RN No [facility] 03-31-2015 Because of a physica l, mental, or emotional condition, do you have difficulty doing errands alone such as visiting a physician's office or shopping No 03/31/2015 12:49 PM EDT Gregoria Moeller RN No [facility] Mental Status Date Assessment Result Facility 06-01-2025 Cognitive function Voice/Name [facility] Work Phone: 05-31-2025 Cognitive function Voice/Name;Deep Pain [facility] Work Phone: 04-30-2025 Cognitive function Voice/Name [facility] Work Phone: 04-29-2025 Cognitive function Level Of Cons ciousness Awake;Alert;Appropriate;Fol lows Commands [facility] Work Phone: 01-19-2025 Cognitive function Voice/Name [facility] Work Phone: 09-20-2024 Cognitive function Awake;Alert;A ppropriate;Fol lows Commands [facility] Work Phone: 09-01-2024 Cognitive function Level Of Cons ciousness Awake;Alert;Appropriate;Fol lows Commands [facility] Work Phone: 09-22-2023 Cognitive function Level Of Cons ciousness Awake;Alert;Appropriate;Fol lows Commands [facility] Work Phone: 03-31-2023 Cognitive function Level Of Cons ciousness Awake;Alert;Appropriate;Fol lows Commands [facility] Work Phone: 02-24-2023 Cognitive function Level Of Cons ciousness Drowsy [facility] Work Phone: 11-21-2022 Cognitive function Voice/Name [facility] Work Phone: 11-21-2022 Cognitive function Awake;Alert;Appropriat e [facility] Work Phone: 08-08-2022 Cognitive function Level Of Cons ciousness Awake;Alert;Appropriate;Fol lows Commands;Responds to vocal stimuli [facility] Work Phone: 04-08-2022 Cognitive function Level Of Cons ciousness Awake;Alert;Appropriate;Fol lows Commands [facility] Work Phone: 03-31-2015 Because of a physica l, mental, or emotional condition, do you have serious difficulty concentrating, remembering, or making decisions No 03/31/2015 12:49 PM EDT Gregoria Moeller RN No [facility] Clinical Notes 01-24-2021 to 07-24-2025 Aly Marcial MA - 06/02/2025 6:15 PM EDT Note Date & Type Note Facility 07-24-2025 Note HNO ID: [id number] Author: ANOOP PHILIP MD Service: ? 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 He is on active surveillance. 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 apixaban (ELIQUIS) 5 mg tab(s) Take 5 mg by mouth two times a day. furosemide (LASIX) 40 mg tablet Take 1 tablet by mouth once daily. prn insulin glargine (BASAGLAR KWIKPEN U-100 INSULIN) 100 unit/mL (3 mL) Inject 47 Units subcutaneously daily at bedtime. ELIQUIS 5 mg tab(s) Take 1 tablet by mouth two times a day. carvedilol (COREG) 25 mg tablet Take 1 tablet by mouth two times a day. insulin aspart, niacinamide, (FIASP FLEXTOUCH U-100 INSULIN) [...] mouth two times a day before meals. atorvastatin (LIPITOR) 20 mg tablet Take 1 tablet by mouth once daily. Replaces simvastatin OXYGEN, HOME THERAPY, 2 L/min by Nasal Cannula route continuous. OTC NUTRITIONAL SUPPLEMENT NUVOFLEX TURMERIC ORAL Take by mouth. empagliflozin (JARDIANCE) 25 mg tablet Take 1 tablet by mouth once daily. Take 1 tablet once daily in the morning cyanocobalamin (VITAMIN B-12) 1,000 mcg tab Take 1 tablet by mouth once daily. colestipol (COLESTID) 1 gram tablet Take 1 tablet by mouth once daily. albuterol HFA (VENTOLIN HFA) 90 mcg/actuation inhaler Inhale 2 Puffs as instructed every 4 hours as needed. insulin needles, DISPOSABLE, (1ST TIER UNIFINE PENTIPS) [...] twice daily. Accucheck compact test strips, dx-NIDDM tamsulosin (FLOMAX) 0.4 mg Take 1 capsule by mouth once daily. solifenacin 10 mg tablet Take 1 tablet by mouth every afternoon. aspirin 81 mg chewable tablet Take 81 mg by mouth once daily. HISTORIES PAST MEDICAL HISTORY Diagnosis Date DIABETES MELLITUS [...] Cancer Sister Cancer Sister Colon Cancer Brother SOCIAL HISTORY Social History Tobacco Use Smoking status: Former Current packs/day: 0.00 Average packs/day: 2.0 packs/day for 10.0 years (20.0 ttl pk-yrs) Types: Cigarettes Start date: 09/17/1970 Quit date: 09/17/1980 Years since quittin.8 Smokeless tobacco: Never Vaping Use Vaping status: Never Used Substance Use Topics Alcohol use: No Drug use: No BP 153/82 Pulse 80 Ht 185.4 cm (6' 1) Wt 115.2 kg (254 lb) SpO2 95% BMI 33.51 kg/m? (Z01.89) Encounter for urine test (primary encounter d (more content not included)... [facility] 07-24-2025 Note HNO ID: [id number] Author: ANOOP PHILIP MD Service: ? Author Type: Physician Type: Progress Notes Filed: 07/24/2025 10:21 Note Text: UROLOGY PROCEDURE NOTE Patient presents with history of bladder cancer for cystoscopy. Interval history: No new issues UNIVERSAL PROTOCOL / SAFETY CHECKLIST Procedure to be Performed: Cystoscopy Sign In: A Moment of CARE was completed. Appropriate PPE (Personal Protective Equipment) worn by all providers involved with the procedure. Special equipment not required. Patient/Surrogate Stated/Verified: Patient name, Date of , Relevant allergies, and the intended procedure Time Out: Relevant labs, photos, and/or imaging studies have been reviewed. Intended patient and procedure match the source document(s) (e.g. consent, HANDP, associated studies [imaging, pathology]) match the intended patient and procedure. Consent obtained and matches the intended procedure. Yes. Correct side/site is not applicable. Medications required for this procedure are verified. Fire risk assessed and is not applicable. Implants: are not applicable. Sign Out: Specimens are all correctly labeled and sent. All instruments, equipment, possible retained foreign bodies are accounted for. Yes. The post-procedure plan of care has been communicated to the patient or surrogate. CYSTOSCOPY PROCEDURE NOTE: Antibiotics: None The benefits, risks, alternatives of the cystoscopy procedure and personnel were discussed with the patient. The verbal consent was obtained and the patient agrees to proceed. Procedure: The patient was placed on the procedure table in the supine position and prepped and draped in the usual sterile fashion. 2% Lidocaine Jelly was placed per urethra as an anesthetic in the standard fashion. Once adequate local anesthesia was achieved, the tip of the flexible cystoscope was carefully placed into the urethra under direct visual guidance. Urethra: Normal Prostate: Bilobar hypertrophy Bladder: no stones, trabeculated, Right posterior wall low grade appearing tumor, both ureteral orifices seen Retroflexion: without intravesical protrusion of the prostate At the conclusion of the procedure, the flexible cystoscope was removed atraumatically. The patient tolerated the procedure without complications. Patient was given standard post-procedure instructions, and was directed to complete the course of oral antibiotics and increase oral fluid intake as directed. ASSESSMENT/PLAN: TaLG bladder cancer - See note from today Diagnostic Cystoscopy Performed by: Anoop Philip MD Authorized by: Anoop Philip MD Procedure Details Cystoscope type: Disposable flexible Anoop Philip MD [facility] 06-25-2025 Note HNO ID: [id number] Author: ANOOP PHILIP MD Service: ? Author Type: Physician Type: Progress Notes Filed: 06/25/2025 12:17 Note Text: NEW PATIENT ENCOUNTER HISTORY OF PRESENT ILLNESS: Faisal Alarcon is a 80 year old with GG1 prostate cancer and TaLG bladder cancer who presents to [facility]. Patient's daughter acted as primary historian. He has a history of above. 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 Patient states he was unaware of this. However he did bring in a pathology report demonstrating GG1 disease present on prostate chips from TURP. Volume/percent of chips with cancer involved not noted. He is not clear if PSA had been checked in follow up. He had an episode of gross hematuria last year and underwent TURBT 04/2024. Path TaLG. He was given a single intraoperative dose of mitomycin. Decision made not to pursue induction therapy due to other comorbidities. He has had negative cystoscopies since and thinks last was ~6 months ago. Environmental Exposures Smoking History - 45 pack year Occupational Exposures - None Pelvic radiation - None MEDICATIONS pantoprazole DR (PROTONIX) 40 mg tablet Take 1 tablet by mouth once daily. apixaban (ELIQUIS) 5 mg tab(s) Take 5 mg by mouth two times a day. furosemide (LASIX) 40 mg tablet Take 1 tablet by mouth once daily. prn insulin glargine (BASAGLAR KWIKPEN U-100 INSULIN) 100 unit/mL (3 mL) Inject 47 Units subcutaneously daily at bedtime. ELIQUIS 5 mg tab(s) Take 1 tablet by mouth two times a day. carvedilol (COREG) 25 mg tablet Take 1 tablet by mouth two times a day. insulin aspart, niacinamide, (FIASP FLEXTOUCH U-100 INSULIN) [...] mouth two times a day before meals. atorvastatin (LIPITOR) 20 mg tablet Take 1 tablet by mouth once daily. Replaces simvastatin OXYGEN, HOME THERAPY, 2 L/min by Nasal Cannula route continuous. OTC NUTRITIONAL SUPPLEMENT NUVOFLEX TURMERIC ORAL Take [...] Take 1 tablet by mouth once daily. colestipol (COLESTID) 1 gram tablet Take [...] twice daily. Accucheck compact test strips, dx-NIDDM HISTORIES PAST MEDICAL HISTORY Diagnosis Date DIABETES MELLITUS [...] Cancer Sister Cancer Sister Colon Cancer Brother SOCIAL HISTORY Social History Tobacco Use Smoking status: Former Current packs/day: 0.00 Average packs/day: 2.0 packs/day for 10.0 years (20.0 ttl pk-yrs) Types: Cigarettes S (more content not included)... [facility] 06-12-2025 Note HNO ID: [id number] Author: MATHIEU VIRGEN MD Service: ? Author Type: Physician Type: Progress Notes Filed: 06/12/2025 12:39 Note Text: The patient is an 80-year-old male with aortic stenosis, atrial fibrillation, and diabetes mellitus, presenting for post-discharge follow-up after hospitalization for chest pain. HPI Chest Pain: - Hospitalized at [facility] 05/31-06/01 for chest pain. - Cardiology consult performed; serial cardiac enzymes, monitoring, and echocardiogram conducted. - D-dimer: 0.31. - Echocardiogram (05/31) showed mild concentric LVH, LVEF 65%, stage 1 diastolic dysfunction, mild left atrial enlargement, and mild 1+ mitral valve insufficiency. - Cardiology determined no further cardiac workup was needed. - Pepcid discontinued; Protonix prescribed. - Recent episode of chest pain at embroiderer hand's office; Faisal reports it was minimal. - Pulmonology ordered Holter monitor; results pending. Syncope: - Hospitalized 04/29-04/30 for syncope; attributed to dehydration. - Faisal was outside and felt lightheaded. - Lasix dosage reduced to PRN; Faisal instructed to monitor weight and fluid intake. Aortic Stenosis: - Diagnosed with aortic stenosis; no recent changes in condition reported. Atrial Fibrillation: - History of AFib; previously on Eliquis, which was discontinued but recommended to resume. - Carotid study (04/29) showed mild 50% stenosis in bilateral extracranial internal carotid arteries. - Currently on diltiazem (Cartia); embroiderer hand considering discontinuation pending Holter monitor results. Diabetes Mellitus: - Managed with CGM; 14-day average glucose: 148 mg/dL, corresponding to an A1c of 6.9%. - Last A1c in May: 7.0%. - No significant hypoglycemic episodes; occasional postprandial hyperglycemia. - Receives retinal injections every 5 weeks for diabetic retinopathy. Bladder Cancer: - History of bladder cancer; Faisal reports it was the type that comes back. - No dysuria, frequency, or urgency reported. - Follow-up with urology every 3 months; Faisal expresses desire to switch urologists. Sebaceous Cyst: - Sebaceous cyst removed from the chest; Faisal reports it has recurred. MEDICATIONS: Current Outpatient Medications Medication Sig apixaban (ELIQUIS) 5 mg tab(s) Take 5 mg by mouth two times a day. pantoprazole DR (PROTONIX) 40 mg tablet Take 40 mg by mouth once daily. insulin glargine (BASAGLAR KWIKPEN U-100 INSULIN) 100 unit/mL (3 mL) Inject 47 Units subcutaneously daily at bedtime. carvedilol (COREG) 25 mg tablet Take 1 tablet by mouth two times a day. finasteride (PROSCAR) 5 mg tablet Take 1 [...] by mouth every afternoon. Ordered by cardiology metFORMIN ER (GLUCOPHAGE XR) 500 mg 24 hr tablet Take 2 tablets by mouth two times a day before meals. atorvastatin (LIPITOR) 20 mg tablet Take 1 tablet by mouth once daily. Replaces simvastatin TURMERIC ORAL Take by mouth. tamsulosin (FLOMAX) 0.4 mg Take 1 capsule by mouth every 12 hours. solifenacin 10 mg tablet Take 1 tablet by mouth every afternoon. empagliflozin (JARDIANCE) 25 mg tablet Take 1 tablet by mouth once daily. Take 1 tablet once daily in the morning furosemide (LASIX) 40 mg tablet Take 1 tablet by mouth once daily. prn ELIQUIS 5 mg tab(s) Take 1 tablet by mouth two times a day. insulin aspart, niacinamide, (FIASP FLEXTOUCH U-100 INSULIN) 100 unit/mL (3 mL) pen Inject 26 Units subcutaneously three times a day before meals. Blood-Glucose Sensor (AdTrib G7 SENSOR) sayra Apply new sensor every ten (10) days. OXYGEN, HOME THERAPY, 2 L/min by Nasal Cannula route continuous. OTC NUTRITIONAL SUPPLEMENT NUVOFLEX cyanocobalamin (VITAMIN B-12) 1,000 mcg tab Take 1 tablet by mouth once daily. colestipol (COLESTID) 1 gram tablet Take [...] for this visit. ALLERGIES: ALLERGIES Allergen Reactions (more content not included)... [facility] 06-11-2025 Progress note [facility] 06-02-2025 Note HNO ID: [id number] Author: ALY MARCIAL MA Service: ? Author Type: [employer] Type: Progress Notes Filed: 06/02/2025 18:28 Note Text: TRANSITION CARE MANAGEMENT (TCM) INITIAL CONTACT [employer] Outreach Provider Action/FYI: Chest pain went to [facility] 05/31 and admitted. Had 48 Holter monitor placed 06/02 by [place] [facility]. Aware will let office know so we can fax to get results. Daughter would like to transfer care to [facility] pulmonary due to not happy with cantonment service. Initial contact with patient post discharge, spoke to daughter. Patient identified by name and . TRANSITION CARE MANAGEMENT INITIAL OUTREACH DOCUMENTATION: 06/02/2025 Date of Outreach: Outreach Attempt 1: Contact Made Date of Discharge 06/01/2025 SUMMARY: -Pt discharged from [facility] on 06/01. -Admitted for: chest pain Do you have a hospital follow up appointment with your PCP? Appointment on 06/[address] Virgen Yes. Remind patient of appointment date, time, and location. If not within 14 calendar days of discharge - please reschedule accordingly. MEDICATIONS: Many patients have questions or concerns about their medications once they are home. Were you prescribed any new medications? If yes, what are those medications? pantoprazole Were you told to hold any medications? No Were any of your medications discontinued? If yes, what are those medications? pepcid Do you have any questions about getting or taking your medications? No Your discharge instructions/After visit Summary (AVS) are important in guiding you through the recovery process. Is there anything I might help you understand? No Do you have all the necessary equipment and supplies at home? yes Medical records from recent hospitalization: Placed for provider to review [facility] 06-02-2025 History of Present illness Narrative TRANSITION CARE MANAGEMENT (TCM) INITIAL CONTACT [employer] Outreach Provider Action/FYI: Chest pain went to [facility] 05/31 and admitted. Had 48 Holter monitor placed 06/02 by [place] [facility]. Aware will let office know so we can fax to get results. Daughter would like to transfer care to [facility] pulmonary due to not happy with cantonment service. Initial contact with patient post discharge, spoke to daughter. Patient identified by name and . TRANSITION CARE MANAGEMENT INITIAL OUTREACH DOCUMENTATION: 06/02/2025 Date of Outreach: Outreach Attempt 1: Contact Made Date of Discharge 06/01/2025 SUMMARY: -Pt discharged from [facility] on 06/01. -Admitted for: chest pain Do you have a hospital follow up appointment with your PCP? Appointment on 06/[address] Virgen Yes. Remind patient of appointment date, time, and location. If not within 14 calendar days of discharge - please reschedule accordingly. MEDICATIONS: Many patients have questions or concerns about their medications once they are home. Were you prescribed any new medications? If yes, what are those medications? pantoprazole Were you told to hold any medications? No Were any of your medications discontinued? If yes, what are those medications? pepcid Do you have any questions about getting or taking your medications? No Your discharge instructions/After visit Summary (AVS) are important in guiding you through the recovery process. Is there anything I might help you understand? No Do you have all the necessary equipment and supplies at home? yes Medical records from recent hospitalization: Placed for provider to review documented in this encounter [facility] 06-02-2025 Note Patient Outreach (RASHIDA MPCHANI) FAISAL ALARCON ([id number]) 1945 Date Time Provider Department 06/02/25 MATHIEU VIRGEN During your visit today, we recorded the following information about you: Aly Marcial MA 06/02/2025 6:28 PM Signed TRANSITION CARE MANAGEMENT (TCM) INITIAL CONTACT [employer] Outreach Provider Action/I: Chest pain went to [facility] 05/31 and admitted. Had 48 Holter monitor placed 06/02 by [place] [facility]. Aware will let office know so we can fax to get results. Daughter would like to transfer care to [facility] pulmonary due to not happy with cantonment service. Initial contact with patient post discharge, spoke to daughter. Patient identified by name and . TRANSITION CARE MANAGEMENT INITIAL OUTREACH DOCUMENTATION: 06/02/2025 Date of Outreach: Outreach Attempt 1: Contact Made Date of Discharge 06/01/2025 SUMMARY: -Pt discharged from [facility] on 06/01. -Admitted for: chest pain Do you have a hospital follow up appointment with your PCP? Appointment on 06/[address] Virgen Yes. Remind patient of appointment date, time, and location. If not within 14 calendar days of discharge - please reschedule accordingly. MEDICATIONS: Many patients have questions or concerns about their medications once they are home. Were you prescribed any new medications? If yes, what are those medications? pantoprazole Were you told to hold any medications? No Were any of your medications discontinued? If yes, what are those medications? pepcid Do you have any questions about getting or taking your medications? No Your discharge instructions/After visit Summary (AVS) are important in guiding you through the recovery process. Is there anything I might help you understand? No Do you have all the necessary equipment and supplies at home? yes Medical records from recent hospitalization: Placed for provider to review Allergies As of Date: 06/02/2025 Noted Allergy Reaction AMOXICILLIN 05/11/2005 Comments: generalized erythema Date Reviewed: 01/22/2025 Reviewed by: Pricilla Kuhn LPN - Fully Assessed Reason for Visit: Transition Of Care [4074] Cmt: Chest pain [facility] hospital 05/31-06/01 Prescriptions as of 06/02/2025 - pantoprazole DR (PROTONIX) 40 mg tablet Take 40 mg by mouth once daily. - insulin glargine [...] strips, dx-NIDDM Meds Comments as of 08/20/2013: Medication notes this encounter FAMOTIDINE 20 MG (more content not included)... [facility] 06-01-2025 Discharge summary Note Date/Time June 01, 2025 3:23pm [facility] Medical Records Department [address] [place] [address] Discharge Summary 06/01/25 1520 MR#: [id number] Acct: [id number] Name: FAISAL ALARCON Rep #:[id number] : 1945 80 From: Narda Kebede MD PCP: Dr. Mathieu Virgen MD Status:ADM I NO Location: [place] [address] Providers Date of Admission: 05/31/25 Date of Discharge: 06/01/25 Primary Care Physician: Dr. Mathieu Virgen MD Consultations 05/31/25 17:01 Consult: Cardiology Routine Consulting Provider: Lucía Pulido Reason for Consult: recurrent chest pain w/ elevated trops EMERGENT Consult: No MD Notified: Yes Date Notified: 05/31/25 Time Notified: 17:19 Method of Notification: Verbal Reason For Visit: CHEST PAIN Diagnosis Discharge Diagnosis (1) Chest pain: Status: Acute Code(s): R07.9 - Chest pain, unspecified Qualifiers: Chest pain type: chest pain on breathing Qualified Code(s): R07.1 - Chest pain on breathing (2) Aortic stenosis: Status: Acute Code(s): I35.0 - Nonrheumatic aortic (valve) stenosis Qualifiers: Cardiac valve disease etiology: nonrheumatic Qualified Code(s): I35.0 -Nonrheumatic aortic (valve) stenosis (3) History of atrial fibrillation: Status: Acute Code(s): Z86.79 - Personal history of other diseases of the circulatory system Plan Patient is an 80-year-old male admitted with chest pain 1. Chest pain suspected to be secondary to pleurisy - Patient pain did increase with deep breath. CRP was however negative. Admitted to monitored bed serial cardiac enzymes ordered. Repeat echo ordered to rule out pericarditis consult placed to cardiology. Also ordered D-dimer which came back at 0.31 ? Patient was seen in consultation by Dr. Lin with cardiology recommended no further treatment 2. Diabetes mellitus type II -patient's oral hypoglycemics held. Placed on long acting insulin, Accu-Cheks a.c. and at bedtime and covered with sliding scale insulin 3. GERD ? Patient is on Pepcid, Pepcid discontinued prescription written for Protonix 4. BPH with lower urinary obstructive symptoms - Patient treated with tamsulosin 5. Obstruct sleep apnea ? Patient is on CPAP at night 6. Dyslipidemia ?Patient is on statin therapy, continued at home dose 7. Hypertension ? Blood pressure controlled, home medications continued with dose adjustment as needed 8. Nonobstructive coronary artery disease ? Remains stable 9. Paroxysmal atrial fibrillation ? Rate controlled on carvedilol systemic anticoagulation with apixaban 10. DVT prophylaxis Patient is on apixaban Time spent in the patient's overall evaluation,decision-making process, review of diagnostic data, adjustment of management, discussion with other providers, nursing nursing and ancillary staff involved in patient's care documentation,40 Minutes Medications at Discharge Home Medications metformin 500 mg tablet,extended release 24 hr 1,000 mg PO BID blood sugar 10/24/21 albuterol sulfate 90 mcg/actuation aerosol inhaler 1 inh inhalation Q6H PRN SOB #8.5 grams 11/30/21 finasteride 5 mg tablet 5 mg PO DAILY bph 10/27/22 insulin glargine 100 unit/mL (3 mL) subcutaneous pen (Basaglar KwikPen U-100 Insulin) 40 unit subcut .COMPLEX diabetes 09/22/23 turmeric root extract 500 mg capsule 1,000 mg PO DAILY viatmin 10/24/23 diltiazem HCl 120 mg capsule,extended release 24 hr (Cartia XT) 120 mg PO DAILY heart 06/08/24 tamsulosin 0.4 mg capsule 0.4 mg PO BID bph 07/10/24 cholecalciferol (vitamin D3) 50 mcg (2,000 unit) capsule (Vitamin D3) 2,000 unitPO DAILY supplement 07/22/24 solifenacin 10 mg tablet 10 mg PO DAILY bladder 07/22/24 empagliflozin 25 mg tablet (Jardiance) 25 mg PO DAILY diabetes #30 tabs 07/25/24 flecainide 100 mg tablet 100 mg PO Q12H heart #180 tabs 08/13/24 atorvastatin 20 mg tablet 20 mg PO DAILY cholesterol 09/01/24 spironolactone 25 mg tablet 25 mg PO DAILY diuretic #30 tabs 09/23/24 isosorbide mononitrate 30 mg tablet,extended release 24 hr 30 mg PO DAILY heart #90 tabs 10/22/24 insulin aspart (niacinamide)(U-100) 100 unit/mL(3 mL) subcutaneous pen (Fiasp FlexTouch U-100 Insulin) 26 unit subcut TID diabetes 01/19/25 mecobalamin (vitamin B12) 1,000 mcg chewable tablet 1,000 mcg PO DAILY vitamin 01/19/25 ferrous gluconate 324 mg (37.5 mg iron) tablet 324 mg PO DAILY 30 days 04/30/25 furosemide 40 mg tablet (Lasix) 40 mg PO PRN 05/22/25 apixaban 5 mg tablet (Eliquis) 5 mg PO BID BLOOD THINNER 05/31/25 carvedilol 25 mg tablet 25 mg PO BID 05/31/25 pantoprazole 40 mg tablet,delayed release (Protonix) 40 mg PO DAILY #30 tabs 06/01/25 Physical Exam Narrative GENERAL: cooperative HEENT: Atraumatic; normocephalic EYES; Anicteric, Normal Conjunctiva NECK; supple, normal thyroid, RESPIRATORY: Diminished to auscultation CARDIOVASCULAR: Regular S1 S2, GI: soft, normoactive bowel sounds, : No Renal angle tenderness; EXTREMITIES: No edema, no clubbing, MUSCULOSKELETAL: no muscle wasting NEURO: Awake; no lateralizing signs. SKIN: No Rash PSYCH; Flat affect Weight / BMI Weight Weight: 114 kg Body Mass Index (BMI) 33.1 ABG / Lab / Microbiology Data 06/01/25 04:58 06/01/25 04:58 Laboratory: Laboratory Results - last 24 hr 05/31/25 11:56: ESR 40 H, C-React Prot Ext Range < 3.00 05/31/25 15:39: Troponin T Hi Sens 4Hr 53 H 05/31/25 18:00: POC Glucose 168 H 05/31/25 20:53: POC Glucose 178 H 06/01/25 01:25: POC Glucose 163 H 06/01/25 04:58: WBC 11.8 H, RBC 5.35, Hgb 14.7, Hct 43.6, MCV 81.5, MCH 27.5, MCHC 33.7, RDW Std Deviation 46.3 H, RDW Coeff of Lucia 15.6 H, Plt Count 264, MPV10.1, Sodium 136, Potassium 4.2, Chloride 102, Carbon Dioxide 22.2, Anion Gap 12, BUN 25 H, Creatinine 1.02, Estim Creat Clear Calc 75.15, Est GFR (MDRD) Non-Af 74, BUN/Creatinine Ratio 24.7 H, Glucose 148 H, Calcium 9.3 06/01/25 08:37: POC Glucose 175 H 06/01/25 10:58: POC Glucose 183 H 06/01/25 14:42: POC Glucose 327 H Microbiology: Microbiology 05/31/25 17:35 Mucosa - Nasopharyngeal Respiratory Panel (PCR) - Final Radiography Diagnostic Testing: Radiology Impression Echocardiogram 05/31/25 15:00 Interpretation Summary Mild concentric left ventricular hypertrophy. The left ventricular ejection fraction is 65 %. Stage I diastolic dysfunction with elevated left atrial filling pressures. The left atrium is mildly enlarged. Mild (1+) mitral valve insufficiency. Mildly calcified and thickened aortic valve leaflets. Restricted leaflet excursion. No Doppler available. Ordering Physician: Chilango Wheeler Performed By: Randi Villagran RDCS D/C Instructions DC O2, CPAP, BIPAP Needs Home O2 Discharge instructions: No Meaningful Use Info Meaningful Use Meaningful Use Diagnoses (Choose all that apply): None applicable Discharge Plan Admission Admit Date/Time: 05/31/25 14:56 Attending Provider: Narda Kebede Primary Care Provider: Mathieu Virgen Consulting Providers: Lucía Pulido; Chilango Wheeler Discharge Orders/Prescriptions Prescriptions: New pantoprazole [Protonix] 40 mg tablet,delayed release (DR/EC) 40 mg PO DAILY Qty: 30 0RF Continued metformin 500 mg tablet extended release 24 hr 1,000 mg PO BID albuterol sulfate 90 mcg/actuation HFA aerosol inhaler 1 inh INHALATION Q6H PRN (Reason: SOB) Qty: 8.5 6RF turmeric root extract 500 mg capsule 1,000 mg PO DAILY flecainide 100 mg tablet 100 mg PO Q12H Qty: 180 3RF spironolactone 25 mg tablet 25 mg PO DAILY Qty: 30 11RF insulin glargine [Basaglar KwikPen U-100 Insulin] 100 unit/mL (3 mL) insulin pen 40 unit subcut .COMPLEX Patient Comments: HAS NOT HAD FOR A FEW DAYS BECAUSE HE IS OUT AT HOME Rx Instructions: 40 units subcutaneously QAM; solifenacin 10 mg tablet 10 mg PO DAILY cholecalciferol (vitamin D3) [Vitamin D3] 50 mcg (2,000 unit) capsule 2,000 unit PO DAILY Jardiance 25 mg Tablet 25 mg PO DAILY Qty: 30 2RF Fiasp FlexTouch U-100 Insulin 100 unit/mL (3 mL) insulin pen 26 unit subcut TID Rx Instructions: 20-26 U PER DAUGHTER BASED ON WHAT PT EATS mecobalamin (vitamin B12) 1,000 mcg tablet,chewable 1,000 mcg PO DAILY carvedilol 25 mg tablet 25 mg PO BID Eliquis 5 mg tablet 5 mg PO BID diltiazem HCl [Cartia XT] 120 mg capsule,extended release 24hr 120 mg PO DAILY tamsulosin 0.4 mg capsule 0.4 mg PO BID atorvastatin 20 mg tablet 20 mg PO DAILY ferrous gluconate 324 mg (37.5 mg iron) tablet 324 mg PO DAILY 30 Days 3RF finasteride 5 mg tablet 5 mg PO DAILY isosorbide mononitrate 30 mg tablet extended release 24 hr 30 mg PO DAILY Qty: 90 3RF furosemide [Lasix] 40 mg tablet 40 mg PO PRN Discontinued famotidine 20 mg tablet 20 mg PO BID Patient Comments: take 1 tablet by mouth twice a day Referrals / Follow Up: Mathieu Virgen MD [Primary Care Provider] - Disposition Disposition (needs filled in before D/C Order can be placed): Home, Self Care Charges/Coding Visit Charges Inpatient E&M: 31083 Disch Hosp >30min 06/01/25 1523 <Electronically signed by Narda Kebede MD> Cosigner Signature (if applicable): CC: Dr. Narda Kebede MD; Dr. Mathieu Virgen MD~ Signed [facility] Work Phone: [phone] 387-469809-15-2025 Discharge summary [facility] Medical Records Department [address] [place] [address] Discharge Summary 06/01/25 1520 MR#: [id number] Acct: [id number] Name: FAISAL ALARCON Rep #:[id number] : 1945 80 From: Narda Kebede MD PCP: Dr. Mathieu Virgen MD Status:ADM I NO Location: [place] [address] Providers Date of Admission: 05/31/25 Date of Discharge: 06/01/25 Primary Care Physician: Dr. Mathieu Virgen MD Consultations 05/31/25 17:01 Consult: Cardiology Routine Consulting Provider: Lucía Pulido Reason for Consult: recurrent chest pain w/ elevated trops EMERGENT Consult: No MD Notified: Yes Date Notified: 05/31/25 Time Notified: 17:19 Method of Notification: Verbal Reason For Visit: CHEST PAIN Diagnosis Discharge Diagnosis (1) Chest pain: Status: Acute Code(s): R07.9 - Chest pain, unspecified Qualifiers: Chest pain type: chest pain on breathing Qualified Code(s): R07.1 - Chest pain on breathing (2) Aortic stenosis: Status: Acute Code(s): I35.0 - Nonrheumatic aortic (valve) stenosis Qualifiers: Cardiac valve disease etiology: nonrheumatic Qualified Code(s): I35.0 - Nonrheumatic aortic (valve) stenosis (3) History of atrial fibrillation: Status: Acute Code(s): Z86.79 - Personal history of other diseases of the circulatory system Plan Patient is an 80-year-old male admitted with chest pain 1. Chest pain suspected to be secondary to pleurisy - Patient pain did increase with deep breath. CRP was however negative. Admitted to monitored bed serial cardiac enzymes ordered. Repeat echo ordered to rule out pericarditis consult placed to cardiology. Also ordered D-dimer which came back at 0.31 ? Patient was seen in consultation by Dr. Lin with cardiology recommended no further treatment 2. Diabetes mellitus type II -patient's oral hypoglycemics held. Placed on long acting insulin, Accu-Cheks a.c. and at bedtime and covered with sliding scale insulin 3. GERD ? Patient is on Pepcid, Pepcid discontinued prescription written for Protonix 4. BPH with lower urinary obstructive symptoms - Patient treated with tamsulosin 5. Obstruct sleep apnea ? Patient is on CPAP at night 6. Dyslipidemia ?Patient is on statin therapy, continued at home dose 7. Hypertension ? Blood pressure controlled, home medications continued with dose adjustment as needed 8. Nonobstructive coronary artery disease ? Remains stable 9. Paroxysmal atrial fibrillation ? Rate controlled on carvedilol systemic anticoagulation with apixaban 10. DVT prophylaxis Patient is on apixaban Time spent in the patient's overall evaluation,decision-making process, review of diagnostic data, adjustment of management, discussion with other providers, nursing nursing and ancillary staff involved in patient's care documentation,40 Minutes Medications at Discharge Home Medications metformin 500 mg tablet,extended release 24 hr 1,000 mg PO BID blood sugar 10/24/21 albuterol sulfate 90 mcg/actuation aerosol inhaler 1 inh inhalation Q6H PRN SOB #8.5 grams 11/30/21 finasteride 5 mg tablet 5 mg PO DAILY bph 10/27/22 insulin glargine 100 unit/mL (3 mL) subcutaneous pen (Basaglar KwikPen U-100 Insulin) 40 unit subcut .COMPLEX diabetes 09/22/23 turmeric root extract 500 mg capsule 1,000 mg PO DAILY viatmin 10/24/23 diltiazem HCl 120 mg capsule,extended release 24 hr (Cartia XT) 120 mg PO DAILY heart 06/08/24 tamsulosin 0.4 mg capsule 0.4 mg PO BID bph 07/10/24 cholecalciferol (vitamin D3) 50 mcg (2,000 unit) capsule (Vitamin D3) 2,000 unitPO DAILY [id number]/05/24 solifenacin 10 mg tablet 10 mg PO DAILY bladder 07/22/24 empagliflozin 25 mg tablet (Jardiance) 25 mg PO DAILY diabetes #30 tabs 07/25/24 flecainide 100 mg tablet 100 mg PO Q12H heart #180 tabs 08/13/24 atorvastatin 20 mg tablet 20 mg PO DAILY cholesterol 09/01/24 spironolactone 25 mg tablet 25 mg PO DAILY diuretic #30 tabs 09/23/24 isosorbide mononitrate 30 mg tablet,extended release 24 hr 30 mg PO DAILY heart #90 tabs 10/22/24 insulin aspart (niacinamide)(U-100) 100 unit/mL(3 mL) subcutaneous pen (Fiasp FlexTouch U-100 Insulin) 26 unit subcut TID diabetes 01/19/25 mecobalamin (vitamin B12) 1,000 mcg chewable tablet 1,000 mcg PO DAILY vitamin 01/19/25 ferrous gluconate 324 mg (37.5 mg iron) tablet 324 mg PO DAILY 30 days 04/30/25 furosemide 40 mg tablet (Lasix) 40 mg PO PRN 05/22/25 apixaban 5 mg tablet (Eliquis) 5 mg PO BID BLOOD THINNER 05/31/25 carvedilol 25 mg tablet 25 mg PO BID 05/31/25 pantoprazole 40 mg tablet,delayed release (Protonix) 40 mg PO DAILY #30 tabs 06/01/25 Physical Exam Narrative GENERAL: cooperative HEENT: Atraumatic; normocephalic EYES; Anicteric, Normal Conjunctiva NECK; supple, normal thyroid, RESPIRATORY: Diminished to auscultation CARDIOVASCULAR: Regular S1 S2, GI: soft, normoactive bowel sounds, : No Renal angle tenderness; EXTREMITIES: No edema, no clubbing, MUSCULOSKELETAL: no muscle wasting NEURO: Awake; no lateralizing signs. SKIN: No Rash PSYCH; Flat affect Weight / BMI Weight Weight: 114 kg Body Mass Index (BMI) 33.1 ABG / Lab / Microbiology Data 06/01/25 04:58 06/01/25 04:58 Laboratory: Laboratory Results - last 24 hr 05/31/25 11:56: ESR 40 H, C-React Prot Ext Range < 3.00 05/31/25 15:39: Troponin T Hi Sens 4Hr 53 H 05/31/25 18:00: POC Glucose 168 H 05/31/25 20:53: POC Glucose 178 H 06/01/25 01:25: POC Glucose 163 H 06/01/25 04:58: WBC 11.8 H, RBC 5.35, Hgb 14.7, Hct 43.6, MCV 81.5, MCH 27.5, MCHC 33.7, RDW Std Deviation 46.3 H, RDW Coeff of Lucia 15.6 H, Plt Count 264, MPV10.1, Sodium 136, Potassium 4.2, [id number], Carbon Dioxide 22.2, Anion Gap 12, BUN 25 H, Creatinine 1.02, Estim Creat Clear Calc 75.15, Est GFR (MDRD) Non- Af 74, BUN/Creatinine Ratio 24.7 H, Glucose 148 H, Calcium 9.3 06/01/25 08:37: POC Glucose 175 H 06/01/25 10:58: POC Glucose 183 H 06/01/25 14:42: POC Glucose 327 H Microbiology: Microbiology 05/31/25 17:35 Mucosa - Nasopharyngeal Respiratory Panel (PCR) - Final Radiography Diagnostic Testing: Radiology Impression Echocardiogram 05/31/25 15:00 Interpretation Summary Mild concentric left ventricular hypertrophy. The left ventricular ejection fraction is 65 %. Stage I diastolic dysfunction with elevated left atrial filling pressures. The left atrium is mildly enlarged. Mild (1+) mitral valve insufficiency. Mildly calcified and thickened aortic valve leaflets. Restricted leaflet excursion. No Doppler available. Ordering Physician: Chilango Wheeler Performed By: Randi Villagran RDCS D/C Instructions DC O2, CPAP, BIPAP Needs Home O2 Discharge instructions: No Meaningful Use Info Meaningful Use Meaningful Use Diagnoses (Choose all that apply): None applicable Discharge Plan Admission Admit Date/Time: 05/31/25 14:56 Attending Provider: Narda Kebede Primary Care Provider: Mathieu Virgen Consulting Providers: Lucía Pulido; Chilango Wheeler Discharge Orders/Prescriptions Prescriptions: New pantoprazole [Protonix] 40 mg tablet,delayed release (DR/EC) 40 mg PO DAILY Qty: 30 0RF Continued metformin 500 mg tablet extended release 24 hr 1,000 mg PO BID albuterol sulfate 90 mcg/actuation HFA aerosol inhaler 1 inh INHALATION Q6H PRN (Reason: SOB) Qty: 8.5 6RF turmeric root extract 500 mg capsule 1,000 mg PO DAILY flecainide 100 mg tablet 100 mg PO Q12H Qty: 180 3RF spironolactone 25 mg tablet 25 mg PO DAILY Qty: 30 11RF insulin glargine [Basaglar KwikPen U-100 Insulin] 100 unit/mL (3 mL) insulin pen 40 unit subcut .COMPLEX Patient Comments: HAS NOT HAD FOR A FEW DAYS BECAUSE HE IS OUT AT HOME Rx Instructions: 40 units subcutaneously QAM; solifenacin 10 mg tablet 10 mg PO DAILY cholecalciferol (vitamin D3) [Vitamin D3] 50 mcg (2,000 unit) capsule 2,000 unit PO DAILY Jardiance 25 mg Tablet 25 mg PO DAILY Qty: 30 2RF Fiasp FlexTouch U-100 Insulin 100 unit/mL (3 mL) insulin pen 26 unit subcut TID Rx Instructions: 20-26 U PER DAUGHTER BASED ON WHAT PT EATS mecobalamin (vitamin B12) 1,000 mcg tablet,chewable 1,000 mcg PO DAILY carvedilol 25 mg tablet 25 mg PO BID Eliquis 5 mg tablet 5 mg PO BID diltiazem HCl [Cartia XT] 120 mg capsule,extended release 24hr 120 mg PO DAILY tamsulosin 0.4 mg capsule 0.4 mg PO BID atorvastatin 20 mg tablet 20 mg PO DAILY ferrous gluconate 324 mg (37.5 mg iron) tablet 324 mg PO DAILY 30 Days 3RF finasteride 5 mg tablet 5 mg PO DAILY isosorbide mononitrate 30 mg tablet extended release 24 hr 30 mg PO DAILY Qty: 90 3RF furosemide [Lasix] 40 mg tablet 40 mg PO PRN Discontinued famotidine 20 mg tablet 20 mg PO BID Patient Comments: take 1 tablet by mouth twice a day Referrals / Follow Up: Mathieu Virgen MD [Primary Care Provider] - Disposition Disposition (needs filled in before D/C Order can be placed): Home, Self Care Charges/Coding Visit Charges Inpatient E&M: 67471 Disch Hosp >30min 06/01/25 1522 Cosigner Signature (if applicable): CC: Dr. Narda Kebede MD; Dr. Mathieu Virgen MD~ Signed [facility]09-15-2025 [facility]09-15-2025 Hospital Discharge instructionsAdditional Instructions Date of Discharge: 06/01/25[facility] Work Phone: [phone]) 336-130309-15-2025 Consult note Author Gabriel Lin [facility] Note Date/Time June 01, 2025 10:23am [facility] Medical Records Department [address] [place] [address] Consultation - Cardiology 06/01/25 1012 MR#: [id number] Acct: [id number] Name: FAISAL ALARCON Rep #:[id number] : 1945 80 From: Gabriel Lin MD PCP: Dr. Mathieu Virgen MD Status:ADM I NO Location: [place] [id number] Assessment & Plan Assessment/Plan (1) Chest pain: QUALIFIERS: Chest pain type: chest pain on breathing Qualified Code(s): R07.1 - Chest pain on breathing PLAN: Patient's chest discomfort is classically pleuritic. I do not feel this represents coronary ischemia. His cardiac enzymes are minimally elevated at 68,59, and 53. He had a recent negative stress test April 30, 2025. I do not believe that any further cardiovascular evaluation is indicated at thispoint in time. (2) Aortic stenosis: QUALIFIERS: Cardiac valve disease etiology: nonrheumatic Qualified Code(s): I35.0 - Nonrheumatic aortic (valve) stenosis PLAN: Patient has a history of moderate aortic stenosis by echocardiogram April2025. Is difficult to auscultate given his body habitus. This should be monitored and through the outpatient setting on a yearly basis and as needed. (3) History of atrial fibrillation: PLAN: Patient has a history of paroxysmal atrial fibrillation. Currently he is in sinus rhythm on telemetry. He is on Eliquis 5 mg twice daily which is the appropriate dosing given his normal creatinine and his weight with the age of 80. The patient should be continued on his home medications with the Eliquis carvedilol and diltiazem. She should also be maintained on the flecainide 100 mg twice daily. The patient continue to follow-up with his primary embroiderer hand per previously arranged appointments. PLAN: Plan 1. I do not feel that further cardiovascular evaluation is indicated at this point in time. 2. The patient should be continued on his same cardiovascular medications as hewas on in the outpatient setting. 3. Patient should follow-up with his primary embroiderer hand per his previous arranged appointments after discharge. HPI Consult Data Date of Consult: 06/01/25 HPI Narrative Reason for Consultation: Chest pain HPI Narrative: FAISAL ALARCON, is a 80 M who presents with several hours of pleuritic chest discomfort. He denies any URI type symptoms or recent cough to me. The pain isdefinitely pleuritic it is extremely intense when he takes a deep breath. Troponins were 68 and 59. 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 He denies missing any doses. Patient denies any lower extremity edema. He had a recent echocardiogram April2025 that showed mild to moderate aortic stenosis and ejection fraction of 60%. Echo was repeated as a limited echo today which shows an EF of 65% normal RV. There was no Doppler performed and there was limited excursion noted on the aortic valve consistent with his mild to moderate . The patient also has obstructive sleep apnea and is on CPAP. The patient carries a history of paroxysmal atrial fibrillation his telemetry today shows normal sinus rhythm at 73 bpm. His ECG on arrival showed normal sinus rhythm with a first-degree AV block and old inferior wall infarct and a right bundle branch block which was not new. [facility] Medical History History of CAD (coronary artery disease) Paroxysmal atrial fibrillation Chronic pain Kidney stones GERD (gastroesophageal reflux [...] Medications ?Medication ?Instructions ?Recorded ?Last Taken ?Type metformin 500 mg tablet,extended 1,000 mg PO BID blood sugar 10/24/21 05/30/25 History release 24 hr albuterol sulfate 90 mcg/actuation 1 inh inhalation Q6 H PRN SOB #8.5 11/30/21 Unknown Rx aerosol inhaler grams finasteride 5 mg tablet 5 mg PO DAILY bph 10/27/22 0 05/30/25 History famotidine 20 mg tablet 20 mg PO BID reflux 09/22/23 05/30/25 History insulin glargine 100 unit/mL (3 40 unit subcut .COMPLE X diabetes 09/22/23 05/27/25 History mL) subcutaneous pen (Basaglar KwikPen U-100 Insulin) turmeric root extract 500 mg 1,000 mg PO DAILY viatmin 10/24/23 05/30/25 History capsule diltiazem HCl 120 mg 120 mg PO DAILY heart 05/30/25 History capsule,extended release 24 hr (Cartia XT) tamsulosin 0.4 mg capsule 0.4 mg PO BID bph 07/10/24 0 05/30/25 History cholecalciferol (vitamin D3) 50 2,000 unit PO DAILY myles pplement 07/22/24 05/30/25 History mcg (2,000 unit) capsule (Vitamin D3) solifenacin 10 mg tablet 10 mg PO DAILY bladder 07/2205/30/25 History empagliflozin 25 mg tablet 25 mg PO DAILY diabetes #30 tabs 07/25/24 05/30/25 Rx (Jardiance) flecainide 100 mg tablet 100 mg PO Q12H heart #180 ta bs 08/13/24 05/30/25 Rx atorvastatin 20 mg tablet 20 mg PO DAILY cholesterol 1 11/02/23 05/30/25 History spironolactone 25 mg tablet 25 mg PO DAILY diuretic #3 0 tabs 09/23/24 05/30/25 Rx isosorbide mononitrate 30 mg 30 mg PO DAILY heart #90 tabs 10/22/24 05/30/25 Rx tablet,extended release 24 hr insulin aspart 26 unit subcut TID diabetes 01/19/25 05/30/25 History (niacinamide)(U-100) 100 unit/mL(3 mL) subcutaneous pen (Fiasp FlexTouch U-100 Insulin) mecobalamin (vitamin B12) 1,000 1,000 mcg PO DAILY vit cottrell 01/19/25 05/30/25 History mcg chewable tablet ferrous gluconate 324 mg (37.5 mg 324 mg PO DAILY 30 d ays 04/30/25 05/30/25 Rx iron) tablet furosemide 40 mg tablet (Lasix) 40 mg PO PRN 05/22/25 05/30/25 History apixaban 5 mg tablet (Eliquis) 5 mg PO BID BLOOD THINN ER 05/31/25 05/30/25 History carvedilol 25 mg tablet 25 mg PO BID 05/31/25 History Allergy/AdvReac Type Severity Reaction Status Date / Time amoxicillin Allergy Rash Verified 05/31/25 11:08 Family History Sister Colon cancer Brother Diabetes [...] Type: coffee Number of servings: 1 ROS Constitutional Constitutional: Reports as per HPI Eyes Eyes: Reports systems reviewed and no addt'l complaints, except as documented ENT HEENT: Reports systems reviewed and no addt'l complaints, except as documented Cardiovascular Cardiovascular: Reports as per HPI Respiratory/Chest Respiratory/Chest: Reports as per HPI Gastrointestinal Gastrointestinal: Reports systems reviewed and no addt'l complaints, except as documented Genitourinary Genitourinary: Reports systems reviewed and no addt'l complaints, except as documented Musculoskeletal Musculoskeletal: Reports systems reviewed and no addt'l complaints, except as documented Integumentary Integumentary: Reports systems reviewed and no addt'l complaints, except as documented Neurologic Neurologic: Reports systems reviewed and no addt'l complaints, except as documented Psychiatric Psychiatric: Reports systems reviewed and no addt'l complaints, except as documented Endocrine Endocrinology: Reports systems reviewed and no addt'l complaints, except as documented Hematologic/Lymphatic Hematologic/Lymphatic: Reports as per HPI Allergic/Immunologic Allergic/Immunologic: Reports systems reviewed and no addt'l complaints, except as documented Physical Exam Const alert and oriented x3 HEENT normocephalic Eyes EOMs intact bilaterally Neck no JVD and no carotid bruits Chest inspection of chest normal Resp normal respiratory effort Resp Narrative: Significant pain with deep breaths. Auscultation: crackles bilateral base Cardio Rate: regular rate Rhythm: regular rhythm Heart Sounds: S1 normal, S2 normal and murmur systolic II/ harsh (Difficult toauscultate due to increased AP diameter.); Negative for click or gallop Extremity no pedal edema Neuro Neuro Narrative: Alert and oriented x 3 Psych mental status grossly normal Charges/Coding Visit Charges Inpatient E&M: 73507 Init Hosp L2 Objective Data Vital Signs: Vital Signs Temp Pulse Resp BP Pulse Ox O2 Del Method O2 Flow Rate 97.0 F L 75 16 120/57 L 93 Room Air 2 06/01/25 08:27 06/01/25 08:27 06/01/25 08:27 06/01/25 08:27 06/01/25 08:27 06/01/25 08:31 06/01/25 02:30 Oxygen Flow Rate (L/min) 2 Oxygen Delivery Method Room Air Weight: 251 lb 5.231 oz Body Mass Index (BMI) 33.1 Intake & Output: Intake and Output for Last 24 Hours 05/30/25 05/31/25 06/01/25 23:59 23:59 23:59 Intake Total 480 / 480 Output Total 350 / 350 500 / 500 Balance 130 / 130 -500 / -500 Lab / Micro Data Attestation: I reviewed the patient's lab results. 06/01/25 04:58 06/01/25 04:58 Labs: Laboratory Results - last 24 hr 05/31/25 11:13: WBC 10.1, RBC 5.54, Hgb 15.3, Hct 44.8, MCV 80.9, MCH 27.6, MCHC34.2, RDW Std Deviation 45.4 H, RDW Coeff of Lucia 15.5 H, Plt Count 300, MPV 10.7, Immature Gran % (Auto) 0.600, Neut % (Auto) 70.0, Lymph % (Auto) 17.4 L, Sandoval % (Auto) 9.6, Eos % (Auto) 2.0, Baso % (Auto) 0.4, Absolute Neuts (auto) 7.1, Absolute Lymphs (auto) 1.76, Nucleated RBC % 0, D-Dimer Quant (PE/DVT) 0.31, Sodium 135, Potassium 4.1, Chloride 100, Carbon Dioxide 20.0 L, Anion Gap 15, BUN 25 H, Creatinine 0.99, Estim Creat Clear Calc 66.13, Est GFR (MDRD) Non-Af 77, BUN/Creatinine Ratio 25.2 H, Glucose 164 H, Calcium 9.5, Troponin T High Sens 68 H* D, NT pro BNP II 121 05/31/25 11:56: ESR 40 H, C-React Prot Ext Range < 3.00 05/31/25 13:14: Troponin T Hi Sens 2 Hr 59 H* 05/31/25 15:39: Troponin T Hi Sens 4Hr 53 H 05/31/25 18:00: POC Glucose 168 H 05/31/25 20:53: POC Glucose 178 H 06/01/25 01:25: POC Glucose 163 H 06/01/25 04:58: WBC 11.8 H, RBC 5.35, Hgb 14.7, Hct 43.6, MCV 81.5, MCH 27.5, MCHC 33.7, RDW Std Deviation 46.3 H, RDW Coeff of Lucia 15.6 H, Plt Count 264, MPV10.1, Sodium 136, Potassium 4.2, Chloride 102, Carbon Dioxide 22.2, Anion Gap 12, BUN 25 H, Creatinine 1.02, Estim Creat Clear Calc 75.15, Est GFR (MDRD) Non-Af 74, BUN/Creatinine Ratio 24.7 H, Glucose 148 H, Calcium 9.3 Micro: Microbiology 05/31/25 17:35 Mucosa - Nasopharyngeal Respiratory Panel (PCR) - Final Rhythm Strip Rhythm Strip: Sinus Rhythm Rate: 73 Cardiology Labs/Tests 05/31/25 11:13: WBC 10.1, RBC 5.54, Hgb 15.3, Hct 44.8, MCV 80.9, MCH 27.6, MCHC34.2, Plt Count 300, MPV 10.7, Immature Gran % (Auto) 0.600, Neut % (Auto) 70.0,Lymph % (Auto) 17.4 L, Sandoval % (Auto) 9.6, Eos % (Auto) 2.0, Baso % (Auto) 0.4, Absolute Neuts (auto) 7.1, Nucleated RBC % 0, D-Dimer Quant (PE/DVT) 0.31, Sodium 135, Potassium 4.1, Chloride 100, Carbon Dioxide 20.0 L, Anion Gap 15, BUN 25 H, Creatinine 0.99, Est GFR (MDRD) Non-Af 77, BUN/Creatinine Ratio 25.2 H,Glucose 164 H, Calcium 9.5 06/01/25 04:58: WBC 11.8 H, RBC 5.35, Hgb 14.7, Hct 43.6, MCV 81.5, MCH 27.5, MCHC 33.7, Plt Count 264, MPV 10.1, Sodium 136, Potassium 4.2, Chloride 102, Carbon Dioxide 22.2, Anion Gap 12, BUN 25 H, Creatinine 1.02, Est GFR (MDRD) Non-Af 74, BUN/Creatinine Ratio 24.7 H, Glucose 148 H, Calcium 9.3 Rhythm: EKG: ECHO: Stress Test: Cardiac Cath: PCI: CT Surgery: Holter monitor: EPS: PPM: CXR: Chest CT Scan: Radiography Diagnostic Testing: Radiology Impression Chest X-Ray 05/31/25 12:00 IMPRESSION: Stable mild cardiomegaly with pulmonary vascular congestion and interstitial lung disease. Reading Location: [facility] Echocardiogram 05/31/25 15:00 Interpretation Summary Mild concentric left ventricular hypertrophy. The left ventricular ejection fraction is 65 %. Stage I diastolic dysfunction with elevated left atrial filling pressures. The left atrium is mildly enlarged. Mild (1+) mitral valve insufficiency. Mildly calcified and thickened aortic valve leaflets. Restricted leaflet excursion. No Doppler available. Ordering Physician: Chilango Wheeler Performed By: Sparkle, Randi, RDCS Risk Score for UA/STEMI Assesmment (YES = 1) Risk Stratification Applicable: Yes Age > or = 65: Yes > or = 3 CAD risk factors (HTN, Hypercholesterolemia, Diabetes, family hx, current smoker): No Known CAD (Stenosis > or = 50%): Yes ASA used in past 7 days: No Severe angina (> or = 2 episodes in 24 hrs): No EKG ST change > or = 0.5mm: No Positive cardiac markers: Yes Score MARK Risk Score of mortality/ recurrent ischemic event over the next 14 days: 3 = 13.2% Intermediate Risk 06/01/25 1023 <Electronically signed by Gabriel Lin MD> Cosigner Signature (if applicable): CC: Dr. Mathieu Virgen MD~ Signed [facility] Work Phone: 1(311) 333-228909-15-2025 Progress note Author Narda Palmakaterin [facility] Note Date/Time June 01, 2025 8:56am [facility] Medical Records Department [address] [place] [address] Progress Note - Hospitalist 06/01/25 0847 MR#: [id number] Acct: [id number] Name: FAISAL ALARCON Rep #:[id number] : 1945 80 From: Narda Kebede MD PCP: Dr. Mathieu Virgen MD Status:ADM I NO Location: [place] [address] Reason for Visit Chief Complaint: Chest pain Subjective Subjective Patient is an 80-year-old male admitted with chest pain Objective Data Objective Data Vital Signs: Vital Signs Temp Pulse Resp BP Pulse Ox O2 Del Method O2 Flow Rate 97.0 F L 75 16 120/57 L 93 Room Air 2 06/01/25 08:27 06/01/25 08:27 06/01/25 08:27 06/01/25 08:27 06/01/25 08:27 06/01/25 08:31 06/01/25 02:30 Oxygen Flow Rate (L/min) 2 Oxygen Delivery Method Room Air Weight: 114 kg Body Mass Index (BMI) 33.1 Intake & Output: Intake and Output for Last 24 Hours 05/30/25 05/31/2525 23:59 23:59 23:59 Intake Total 480 / 480 Output Total 350 / 350 500 / 500 Balance 130 / 130 -500 / -500 Lab / Micro Data 06/01/25 04:58 06/01/25 04:58 Labs: Laboratory Results - last 24 hr 05/31/25 11:13: WBC 10.1, RBC 5.54, Hgb 15.3, Hct 44.8, MCV 80.9, MCH 27.6, MCHC34.2, RDW Std Deviation 45.4 H, RDW Coeff of Lucia 15.5 H, Plt Count 300, MPV 10.7, Immature Gran % (Auto) 0.600, Neut % (Auto) 70.0, Lymph % (Auto) 17.4 L, Sandoval % (Auto) 9.6, Eos % (Auto) 2.0, Baso % (Auto) 0.4, Absolute Neuts (auto) 7.1, Absolute Lymphs (auto) 1.76, Nucleated RBC % 0, D-Dimer Quant (PE/DVT) 0.31, Sodium 135, Potassium 4.1, Chloride 100, Carbon Dioxide 20.0 L, Anion Gap 15, BUN 25 H, Creatinine 0.99, Estim Creat Clear Calc 66.13, Est GFR (MDRD) Non-Af 77, BUN/Creatinine Ratio 25.2 H, Glucose 164 H, Calcium 9.5, Troponin T High Sens 68 H* D, NT pro BNP II 121 05/31/25 11:56: ESR 40 H, C-React Prot Ext Range < 3.00 05/31/25 13:14: Troponin T Hi Sens 2 Hr 59 H* 05/31/25 15:39: Troponin T Hi Sens 4Hr 53 H 05/31/25 18:00: POC Glucose 168 H 05/31/25 20:53: POC Glucose 178 H 06/01/25 01:25: POC Glucose 163 H 06/01/25 04:58: WBC 11.8 H, RBC 5.35, Hgb 14.7, Hct 43.6, MCV 81.5, MCH 27.5, MCHC 33.7, RDW Std Deviation 46.3 H, RDW Coeff of Lucia 15.6 H, Plt Count 264, MPV10.1, Sodium 136, Potassium 4.2, Chloride 102, Carbon Dioxide 22.2, Anion Gap 12, BUN 25 H, Creatinine 1.02, Estim Creat Clear Calc 75.15, Est GFR (MDRD) Non-Af 74, BUN/Creatinine Ratio 24.7 H, Glucose 148 H, Calcium 9.3 Micro: Microbiology 05/31/25 17:35 Mucosa - Nasopharyngeal Respiratory Panel (PCR) - Final Radiography Diagnostic Testing: Radiology Impression Chest X-Ray 05/31/25 12:00 IMPRESSION: Stable mild cardiomegaly with pulmonary vascular congestion and interstitial lung disease. Reading Location: [facility] Physical Exam Narrative GENERAL: cooperative HEENT: Atraumatic; normocephalic EYES; Anicteric, Normal Conjunctiva NECK; supple, normal thyroid, RESPIRATORY: Diminished to auscultation CARDIOVASCULAR: Regular S1 S2, GI: soft, normoactive bowel sounds, : No Renal angle tenderness; EXTREMITIES: No edema, no clubbing, MUSCULOSKELETAL: no muscle wasting NEURO: Awake; no lateralizing signs. SKIN: No Rash PSYCH; Flat affect Assessment & Plan Assessment/Plan (1) Chest pain: (2) Elevated troponin: PLAN: Plan Patient is an 80-year-old male admitted with chest pain 1. Chest pain patient - Patient pain did increase with deep breath. CRP was however negative. Admitted to monitored bed serial cardiac enzymes ordered. Repeat echo ordered to rule out pericarditis consult placed to cardiology. Also ordered D-dimer which came back at 0.31 2. Diabetes mellitus type II -patient's oral hypoglycemics held. Placed on long acting insulin, Accu-Cheks a.c. and at bedtime and covered with sliding scale insulin 3. GERD ? Patient is on Pepcid Carla 4. BPH with lower urinary obstructive symptoms - Patient treated with tamsulosin 5. Obstruct sleep apnea ? Patient is on CPAP at night 6. Dyslipidemia ?Patient is on statin therapy, continued at home dose 7. Hypertension ? Blood pressure controlled, home medications continued with dose adjustment as needed 8. Nonobstructive coronary artery disease ? Remains stable 9. Paroxysmal atrial fibrillation ? Rate controlled on carvedilol systemic anticoagulation with apixaban 10. DVT prophylaxis Patient is on apixaban Time spent in the patient's overall evaluation,decision-making process, review of diagnostic data, adjustment of management, discussion with other providers, nursing nursing and ancillary staff involved in patient's care documentation,40 Minutes Charges/Coding Visit Charges Inpatient E&M: 40936 Subs Hosp L2 06/01/25 0856 <Electronically signed by Narda Kebede MD> Cosigner Signature (if applicable): CC: ~ Signed [facility] Work Phone: [phone] 521-921309-15-2025 Consult note [facility] Medical Records Department [address] [place] [address] Consultation - Cardiology 06/01/25 1012 MR#: [id number] Acct: [id number] Name: FAISAL ALARCON Rep #:[id number] : 1945 80 From: Gabriel Lin MD PCP: Dr. Mathieu Virgen MD Status:ADM I NO Location: [place] [address] Assessment & Plan Assessment/Plan (1) Chest pain: QUALIFIERS: Chest pain type: chest pain on breathing Qualified Code(s): R07.1 - Chest pain on breathing PLAN: Patient's chest discomfort is classically pleuritic. I do not feel this represents coronary ischemia. His cardiac enzymes are minimally elevated at 68,59, and 53. He had a recent negative stress test April 30, 2025. I do not believe that any further cardiovascular evaluation is indicated at thispoint in time. (2) Aortic stenosis: QUALIFIERS: Cardiac valve disease etiology: nonrheumatic Qualified Code(s): I35.0 - Nonrheumatic aortic (valve) stenosis PLAN: Patient has a history of moderate aortic stenosis by echocardiogram April2025. Is difficult to auscultate given his body habitus. This should be monitored and through the outpatient setting teena yearly basis and as needed. (3) History of atrial fibrillation: PLAN: Patient has a history of paroxysmal atrial fibrillation. Currently he is in sinus rhythm on telemetry. He is on Eliquis 5 mg twice daily which is the appropriate dosing given his normal creatinine and his weight with the age of 80. The patient should be continued on his home medications with the Eliquis carvedilol and diltiazem. She should also be maintained on the flecainide 100 mg twice daily. The patient continue to follow-up with his primary embroiderer hand per previously arranged appointments. PLAN: Plan 1. I do not feel that further cardiovascular evaluation is indicated at this point in time. 2. The patient should be continued on his same cardiovascular medications as hewas on in the outpatient setting. 3. Patient should follow-up with his primary embroiderer hand per his previous arranged appointments after discharge. HPI Consult Data Date of Consult: 06/01/25 HPI Narrative Reason for Consultation: Chest pain HPI Narrative: FAISAL ALARCON, is a 80 M who presents with several hours of pleuritic chest discomfort. He denies any URI type symptoms or recent cough to me. The pain isdefinitely pleuritic it is extremely intensewhen he takes a deep breath. Troponins were 68 and 59. 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 He denies missing any doses. Patient denies any lower extremity edema. He had a recent echocardiogram April2025 that showed mild to moderate aorticstenosis and ejection fraction of 60%. Echo was repeated as a limited echo today which shows an EF of 65% normal RV. There was no Doppler performed and there was limited excursion noted on the aorticvalve consistent with his mild to moderate . The patient also has obstructive sleep apnea and is on CPAP. The patient carries a history of paroxysmal atrial fibrillation his telemetry today shows normal sinus rhythm at 73 bpm. His ECG on arrival showed normal sinus rhythm with a first-degree AV bl ock and old inferior wall infarct and a right bundle branch block which was not new. [facility] Medical History History of CAD (coronary artery disease) Paroxysmal atrial fibrillation Chronic pain Kidney stones GERD (gastroesophageal reflux [...] Medications ?Medication ?Instructions ?Recorded ?Last Taken ?Type metformin 500 mg tablet,extended 1,000 mg PO BID blood sugar 10/24/21 05/30/25 History release 24 hr albuterol sulfate 90 mcg/actuation 1 inh inhalation Q6 H PRN SOB #8.5 11/30/21 Unknown Rx aerosol inhaler grams finasteride 5 mg tablet 5 mg PO DAILY bph 10/27/22 0 05/30/25 History famotidine 20 mg tablet 20 mg PO BID reflux 09/22/23 05/30/25 History insulin glargine 100 unit/mL (3 40 unit subcut .COMPLE X diabetes 09/22/23 05/27/25 History mL) subcutaneous pen (Basaglar KwikPen U-100 Insulin) turmeric root extract 500 mg 1,000 mg PO DAILY viatmin 10/24/23 05/30/25 History capsule diltiazem HCl 120 mg 120 mg PO DAILY heart 05/30/25 History capsule,extended release 24 hr (Cartia XT) tamsulosin 0.4 mg capsule 0.4 mg PO BID bph 07/10/24 0 05/30/25 History cholecalciferol (vitamin D3) 50 2,000 unit PO DAILY myles pplement 07/22/24 05/30/25 History mcg (2,000 unit) capsule (Vitamin D3) solifenacin 10 mg tablet 10 mg PO DAILY bladder 07/2205/30/25 History empagliflozin 25 mg tablet 25 mg PO DAILY diabetes #30 tabs 07/25/24 05/30/25 Rx (Jardiance) flecainide 100 mg tablet 100 mg PO Q12H heart #180 ta bs 08/13/24 05/30/25 Rx atorvastatin 20 mg tablet 20 mg PO DAILY cholesterol 1 11/02/23 05/30/25 History spironolactone 25 mg tablet 25 mg PO DAILY diuretic #3 0 tabs 09/23/24 05/30/25 Rx isosorbide mononitrate 30 mg 30 mg PO DAILY heart #90 tabs 10/22/24 05/30/25 Rx tablet,extended release 24 hr insulin aspart 26 unit subcut TID diabetes 01/19/25 05/30/25 History (niacinamide)(U-100) 100 unit/mL(3 mL) subcutaneous pen (Fiasp FlexTouch U-100 Insulin) mecobalamin (vitamin B12) 1,000 1,000 mcg PO DAILY vit cottrell 01/19/25 05/30/25 History mcg chewable tablet ferrous gluconate 324 mg (37.5 mg 324 mg PO DAILY 30 d ays 04/30/25 05/30/25 Rx iron) tablet furosemide 40 mg tablet (Lasix) 40 mg PO PRN 05/22/25 05/30/25 History apixaban 5 mg tablet (Eliquis) 5 mg PO BID BLOOD THINN ER 05/31/25 05/30/25 History carvedilol 25 mg tablet 25 mg PO BID 05/31/25 History Allergy/AdvReac Type Severity Reaction Status Date / Time amoxicillin Allergy Rash Verified 05/31/25 11:08 Family History Sister Colon cancer Brother Diabetes [...] Type: coffee Number of servings: 1 ROS Constitutional Constitutional: Reports as per HPI Eyes Eyes: Reports systems reviewed and no addt'l complaints, except as documented ENT HEENT: Reports systems reviewed and no addt'l complaints, except as documented Cardiovascular Cardiovascular: Reports as per HPI Respiratory/Chest Respiratory/Chest: Reports as per HPI Gastrointestinal Gastrointestinal: Reports systems reviewed and no addt'l complaints, except as documented Genitourinary Genitourinary: Reports systems reviewed and no addt'l complaints, except as documented Musculoskeletal Musculoskeletal: Reports systems reviewed and no addt'l complaints, except as documented Integumentary Integumentary: Reports systems reviewed and no addt'l complaints, except as documented Neurologic Neurologic: Reports systems reviewed and no addt'l complaints, except as documented Psychiatric Psychiatric: Reports systems reviewed and no addt'l complaints, except as documented Endocrine Endocrinology: Reports systems reviewed and no addt'l complaints, except as documented Hematologic/Lymphatic Hematologic/Lymphatic: Reports as per HPI Allergic/Immunologic Allergic/Immunologic: Reports systems reviewed and no addt'l complaints, except as documented Physical Exam Const alert and oriented x3 HEENT normocephalic Eyes EOMs intact bilaterally Neck no JVD and no carotid bruits Chest inspection of chest normal Resp normal respiratory effort Resp Narrative: Significant pain with deep breaths. Auscultation: crackles bilateral base Cardio Rate: regular rate Rhythm: regular rhythm Heart Sounds: S1 normal, S2 normal and murmur systolic II/ harsh (Difficult toauscultate due to increased AP diameter.); Negative for click or gallop Extremity no pedal edema Neuro Neuro Narrative: Alert and oriented x 3 Psych mental status grossly normal Charges/Coding Visit Charges Inpatient E&M: 76181 Init Hosp L2 Objective Data Vital Signs: Vital Signs Temp Pulse Resp BP Pulse Ox O2 Del Method O2 Flow Rate 97.0 F L 75 16 120/57 L 93 Room Air 2 06/01/25 08:27 06/01/25 08:27 06/01/25 08:27 06/01/25 08:27 06/01/25 08:27 06/01/25 08:31 06/01/25 02:30 Oxygen Flow Rate (L/min) 2 Oxygen Delivery Method Room Air Weight: 251 lb 5.231 oz Body Mass Index (BMI) 33.1 Intake & Output: Intake and Output for Last 24 Hours 05/30/25 05/31/25 06/01/25 23:59 23:59 23:59 Intake Total 480 / 480 Output Total 350 / 350 500 / 500 Balance 130 / 130 -500 / -500 Lab / Micro Data Attestation: I reviewed the patient's lab results. 06/01/25 04:58 06/01/25 04:58 Labs: Laboratory Results - last 24 hr 05/31/25 11:13: WBC 10.1, RBC 5.54, Hgb 15.3, Hct 44.8, MCV 80.9, MCH 27.6, MCHC34.2, RDW Std Deviation 45.4 H, RDW Coeff of Lucia 15.5 H, Plt Count 300, MPV 10.7, Immature Gran % (Auto) 0.600, Neut % (Auto) 70.0, Lymph % (Auto) 17.4 L, Sandoval % (Auto) 9.6, Eos % (Auto) 2.0, Baso % (Auto) 0.4, AbsoluteNeuts (auto) 7.1, Absolute Lymphs (auto) 1.76, Nucleated RBC % 0, D-Dimer Quant (PE/DVT) 0.31, Sodium 135, Potassium 4.1, Chloride 100, Carbon Dioxide 20.0 L, Anion Gap 15, BUN 25 H, Creatinine 0.99,Estim Creat Clear Calc 66.13, Est GFR (MDRD) Non- Af 77, BUN/Creatinine Ratio 25.2 H, Glucose 164 H,Calcium 9.5, Troponin T High Sens 68 H* D, NT pro BNP II 121 05/31/25 11:56: ESR 40 H, C-React Prot Ext Range < 3.00 05/31/25 13:14: Troponin T Hi Sens 2 Hr 59 H* 05/31/25 15:39: Troponin T Hi Sens 4Hr 53 H 05/31/25 18:00: POC Glucose 168 H 05/31/25 20:53: POC Glucose 178 H 06/01/25 01:25: POC Glucose 163 H 06/01/25 04:58: WBC 11.8 H, RBC 5.35, Hgb 14.7, Hct 43.6, MCV 81.5, MCH 27.5, MCHC 33.7, RDW Std Deviation 46.3 H, RDW Coeff of Lucia 15.6 H, Plt Count 264, MPV10.1, Sodium 136, Potassium 4.2, [id number], Carbon Dioxide 22.2, Anion Gap 12, BUN 25 H, Creatinine 1.02, Estim Creat Clear Calc 75.15, Est GFR (MDRD) Non- Af 74, BUN/Creatinine Ratio 24.7 H, Glucose 148 H, Calcium 9.3 Micro: Microbiology 05/31/25 17:35 Mucosa - Nasopharyngeal Respiratory Panel (PCR) - Final Rhythm Strip Rhythm Strip: Sinus Rhythm Rate: 73 Cardiology Labs/Tests 05/31/25 11:13: WBC 10.1, RBC 5.54, Hgb 15.3, Hct 44.8, MCV 80.9, MCH 27.6, MCHC34.2, Plt Count 300, MPV 10.7, Immature Gran % (Auto) 0.600, Neut % (Auto) 70.0,Lymph % (Auto) 17.4 L, Sandoval % (Auto) 9.6, Eos % (Auto) 2.0, Baso % (Auto) 0.4, Absolute Neuts (auto) 7.1, Nucleated RBC % 0, D-Dimer Quant (PE/DVT) 0.31, Sodium 135, Potassium 4.1, Chloride 100, Carbon Dioxide 20.0 L, Anion Gap 15, BUN 25 H, Creatinine 0.99, Est GFR (MDRD) Non-Af 77, BUN/Creatinine Ratio 25.2 H,Glucose 164 H, Calcium 9.5 06/01/25 04:58: WBC 11.8 H, RBC 5.35, Hgb 14.7, Hct 43.6, MCV 81.5, MCH 27.5, MCHC 33.7, Plt Count 264, MPV 10.1, Sodium 136, Potassium 4.2, Chloride 102, Carbon Dioxide 22.2, Anion Gap 12, BUN 25 H,Creatinine 1.02, Est GFR (MDRD) Non- Af 74, BUN/Creatinine Ratio 24.7 H, Glucose 148 H, Calcium 9.3 Rhythm: EKG: ECHO: Stress Test: Cardiac Cath: PCI: CT Surgery: Holter monitor: EPS: PPM: CXR: Chest CT Scan: Radiography Diagnostic Testing: Radiology Impression Chest X-Ray 05/31/25 12:00 IMPRESSION: Stable mild cardiomegaly with pulmonary vascular congestion and interstitial lung disease. Reading Location: [facility] Echocardiogram 05/31/25 15:00 Interpretation Summary Mild concentric left ventricular hypertrophy. The left ventricular ejection fraction is 65 %. Stage I diastolic dysfunction with elevated left atrial filling pressures. The left atrium is mildly enlarged. Mild (1+) mitral valve insufficiency. Mildly calcified and thickened aortic valve leaflets. Restricted leaflet excursion. No Doppler available. Ordering Physician: Chilango Wheeler Performed By: Randi Villagran RDCS Risk Score for UA/STEMI Assesmment (YES = 1) Risk Stratification Applicable: Yes Age > or = 65: Yes > or = 3 CAD risk factors (HTN, Hypercholesterolemia, Diabetes, family hx, current smoker): No Known CAD (Stenosis > or = 50%): Yes ASA used in past 7 days: No Severe angina (> or = 2 episodes in 24 hrs): No EKG ST change > or = 0.5mm: No Positive cardiac markers: Yes Score MARK Risk Score of mortality/ recurrent ischemic event over the next 14 days: 3 = 13.2% Intermediate Risk 06/01/25 1023 Cosigner Signature (if applicable): CC: Dr. Mathieu Virgen MD~ Signed [facility]09-15-2025 Progress note [facility] Medical Records Department [address] [place] [address] Progress Note - Hospitalist 06/01/25 0847 MR#: [id number] Acct: [id number] Name: FAISAL ALARCON Rep #:[id number] : 1945 80 From: Narda Kebede MD PCP: Dr. Mathieu Virgen MD Status:ADM I NO Location: [place] [address] Reason for Visit Chief Complaint: Chest pain Subjective Subjective Patient is an 80-year-old male admitted with chest pain Objective Data Objective Data Vital Signs: Vital Signs Temp Pulse Resp BP Pulse Ox O2 Del Method O2 Flow Rate 97.0 F L 75 16 120/57 L 93 Room Air 2 06/01/25 08:27 06/01/25 08:27 06/01/25 08:27 06/01/25 08:27 06/01/25 08:27 06/01/25 08:31 06/01/25 02:30 Oxygen Flow Rate (L/min) 2 Oxygen Delivery Method Room Air Weight: 114 kg Body Mass Index (BMI) 33.1 Intake & Output: Intake and Output for Last 24 Hours 05/30/25 05/31/25 06/01/25 23:59 23:59 23:59 Intake Total 480 / 480 Output Total 350 / 350 500 / 500 Balance 130 / 130 -500 / -500 Lab / Micro Data 06/01/25 04:58 06/01/25 04:58 Labs: Laboratory Results - last 24 hr 05/31/25 11:13: WBC 10.1, RBC 5.54, Hgb 15.3, Hct 44.8, MCV 80.9, MCH 27.6, MCHC34.2, RDW Std Deviation 45.4 H, RDW Coeff of Lucia 15.5 H, Plt Count 300, MPV 10.7, Immature Gran % (Auto) 0.600, Neut % (Auto) 70.0, Lymph % (Auto) 17.4 L, Sandoval % (Auto) 9.6, Eos % (Auto) 2.0, Baso % (Auto) 0.4, AbsoluteNeuts (auto) 7.1, Absolute Lymphs (auto) 1.76, Nucleated RBC % 0, D-Dimer Quant (PE/DVT) 0.31, Sodium 135, Potassium 4.1, Chloride 100, Carbon Dioxide 20.0 L, Anion Gap 15, BUN 25 H, Creatinine 0.99,Estim Creat Clear Calc 66.13, Est GFR (MDRD) Non- Af 77, BUN/Creatinine Ratio 25.2 H, Glucose 164 H,Calcium 9.5, Troponin T High Sens 68 H* D, NT pro BNP II 121 05/31/25 11:56: ESR 40 H, C-React Prot Ext Range < 3.00 05/31/25 13:14: Troponin T Hi Sens 2 Hr 59 H* 05/31/25 15:39: Troponin T Hi Sens 4Hr 53 H 05/31/25 18:00: POC Glucose 168 H 05/31/25 20:53: POC Glucose 178 H 06/01/25 01:25: POC Glucose 163 H 06/01/25 04:58: WBC 11.8 H, RBC 5.35, Hgb 14.7, Hct 43.6, MCV 81.5, MCH 27.5, MCHC 33.7, RDW Std Deviation 46.3 H, RDW Coeff of Lucia 15.6 H, Plt Count 264, MPV10.1, Sodium 136, Potassium 4.2, [id number], Carbon Dioxide 22.2, Anion Gap 12, BUN 25 H, Creatinine 1.02, Estim Creat Clear Calc 75.15, Est GFR (MDRD) Non- Af 74, BUN/Creatinine Ratio 24.7 H, Glucose 148 H, Calcium 9.3 Micro: Microbiology 05/31/25 17:35 Mucosa - Nasopharyngeal Respiratory Panel (PCR) - Final Radiography Diagnostic Testing: Radiology Impression Chest X-Ray 05/31/25 12:00 IMPRESSION: Stable mild cardiomegaly with pulmonary vascular congestion and interstitial lung disease. Reading Location: [facility] Physical Exam Narrative GENERAL: cooperative HEENT: Atraumatic; normocephalic EYES; Anicteric, Normal Conjunctiva NECK; supple, normal thyroid, RESPIRATORY: Diminished to auscultation CARDIOVASCULAR: Regular S1 S2, GI: soft, normoactive bowel sounds, : No Renal angle tenderness; EXTREMITIES: No edema, no clubbing, MUSCULOSKELETAL: no muscle wasting NEURO: Awake; no lateralizing signs. SKIN: No Rash PSYCH; Flat affect Assessment & Plan Assessment/Plan (1) Chest pain: (2) Elevated troponin: PLAN: Plan Patient is an 80-year-old male admitted with chest pain 1. Chest pain patient - Patient pain did increase with deep breath. CRP was however negative. Admitted to monitored bed serial cardiac enzymes ordered. Repeat echo ordered to rule out pericarditis consult placed to cardiology. Also ordered D-dimer which came back at 0.31 2. Diabetes mellitus type II -patient's oral hypoglycemics held. Placed on long acting insulin, Accu-Cheks a.c. and at bedtime and covered with sliding scale insulin 3. GERD ? Patient is on Pepcid Carla 4. BPH with lower urinary obstructive symptoms - Patient treated with tamsulosin 5. Obstruct sleep apnea ? Patient is on CPAP at night 6. Dyslipidemia ?Patient is on statin therapy, continued at home dose 7. Hypertension ? Blood pressure controlled, home medications continued with dose adjustment as needed 8. Nonobstructive coronary artery disease ? Remains stable 9. Paroxysmal atrial fibrillation ? Rate controlled on carvedilol systemic anticoagulation with apixaban 10. DVT prophylaxis Patient is on apixaban Time spent in the patient's overall evaluation,decision-making process, review of diagnostic data, adjustment of management, discussion with other providers, nursing nursing and ancillary staff involved in patient's care documentation,40 Minutes Charges/Coding Visit Charges Inpatient E&M: 19709 Subs Hosp L2 06/01/25 0856 Cosigner Signature (if applicable): CC: ~ Signed [facility]09-14-2025 Discharge summary Author Marcelo Hernandez [facility] Note Date/Time May 31, 2025 4:56pm [facility] Medical Records Department [address] [place] [address] Emergency Department Summary 05/31/25 MR#: [id number] Acct: [id number] Name: FAISAL ALARCON Rep #:[id number] : 1945 80 From: Marcelo Kennedy PCP: Dr. Mathieu Virgen MD Status:ADM I NO Location: [place] [address] HPI History of Present Illness Chief Complaint: Chest Pain Informant: patient Onset/Context/Timing Onset: Yesterday Activity at onset: gradual Timing: Continuous Quality: Positive for Sharp Location: Substernal, Left Parasternal and Left Chest Worsened By: Movement of Torso and Breathing Relieved By: Rest Associated Symptoms: Positive for Dyspnea; Negative for Nausea, Vomiting, Diaphoresis, Cough, Fever, Lightheadedness, Acid Reflux or Palpitations Narrative Narrative: Patient presents with chest pain that began last night. Patient states it does constant. Patient describes it as sharp. Patient states it is worse when he takes a deep breath or when he moves. Patient states it is over the substernal area and left chest. Patient states it is better when he is at rest. Patient states he feels short of breath with exertion. Patient denies any nausea or vomiting. Patient denies any lightheadedness or dizziness. Patient denies any palpitations. CVD Risk Factors: Positive for Hypertension, Diabetes and Hypercholesterolemia; Negative for Family History 1' </=55 or Smoking [facility] Medical History History of CAD (coronary artery disease) Paroxysmal atrial fibrillation Chronic pain Kidney stones GERD (gastroesophageal reflux [...] Medications ?Medication ?Instructions ?Recorded ?Last Taken ?Type metformin 500 mg tablet,extended 1,000 mg PO BID blood sugar 10/24/21 05/30/25 History release 24 hr albuterol sulfate 90 mcg/actuation 1 inh inhalation Q6 H PRN SOB #8.5 11/30/21 Unknown Rx aerosol inhaler grams finasteride 5 mg tablet 5 mg PO DAILY bph 10/27/22 0 05/30/25 History famotidine 20 mg tablet 20 mg PO BID reflux 09/22/23 05/30/25 History insulin glargine 100 unit/mL (3 40 unit subcut .COMPLE X diabetes 09/22/23 05/27/25 History mL) subcutaneous pen (Basaglar KwikPen U-100 Insulin) turmeric root extract 500 mg 1,000 mg PO DAILY viatmin 10/24/23 05/30/25 History capsule diltiazem HCl 120 mg 120 mg PO DAILY heart 05/30/25 History capsule,extended release 24 hr (Cartia XT) tamsulosin 0.4 mg capsule 0.4 mg PO BID bph 07/10/24 0 05/30/25 History cholecalciferol (vitamin D3) 50 2,000 unit PO DAILY myles pplement 07/22/24 05/30/25 History mcg (2,000 unit) capsule (Vitamin D3) solifenacin 10 mg tablet 10 mg PO DAILY bladder 07/2205/30/25 History empagliflozin 25 mg tablet 25 mg PO DAILY diabetes #30 tabs 07/25/24 05/30/25 Rx (Jardiance) flecainide 100 mg tablet 100 mg PO Q12H heart #180 ta bs 08/13/24 05/30/25 Rx atorvastatin 20 mg tablet 20 mg PO DAILY cholesterol 1 11/02/23 05/30/25 History spironolactone 25 mg tablet 25 mg PO DAILY diuretic #3 0 tabs 09/23/24 05/30/25 Rx isosorbide mononitrate 30 mg 30 mg PO DAILY heart #90 tabs 10/22/24 05/30/25 Rx tablet,extended release 24 hr insulin aspart 20 unit subcut TID diabetes 01/19/25 05/30/25 History (niacinamide)(U-100) 100 unit/mL(3 mL) subcutaneous pen (Fiasp FlexTouch U-100 Insulin) mecobalamin (vitamin B12) 1,000 1,000 mcg PO DAILY vit cottrell 01/19/25 05/30/25 History mcg chewable tablet ferrous gluconate 324 mg (37.5 mg 324 mg PO DAILY 30 d ays 04/30/25 05/30/25 Rx iron) tablet furosemide 40 mg tablet (Lasix) 40 mg PO PRN 05/22/25 05/30/25 History apixaban 5 mg tablet (Eliquis) 5 mg PO BID BLOOD THINN ER 05/31/25 05/30/25 History carvedilol 25 mg tablet 25 mg PO BID 05/31/25 History Allergy/AdvReac Type Severity Reaction Status Date / Time amoxicillin Allergy Rash Verified 05/31/25 11:08 Family History Sister Colon cancer Brother Diabetes [...] ROS ROS ED Constitutional Constitutional ED: Denies chills or fever(s) Eyes Eyes: Denies blurry vision or change in vision ENT ENT ED: Denies rhinorrhea or sore throat Cardiovascular Cardiovascular: Reports as per HPI and chest pain; Denies palpitations Respiratory/Chest Respiratory/Chest: Reports dyspnea; Denies cough Gastrointestinal Gastrointestinal: Denies nausea or vomiting Genitourinary Genitourinary ED: Denies dysuria or hematuria Musculoskeletal Musculoskeletal: Reports neck pain; Denies back pain Integumentary Denies abscess or rash Neurologic Neurologic: Denies headache(s) or weakness Allergic/Immunologic Allergic/Immunologic ED: Denies mouth swelling or urticaria EXAM Physical Exam Const Vital Signs: 05/31/25 11:08 05/31/25 11:11 05/31/25 11:19 Temperature 97.7 F L Temperature Source Oral Pulse Rate 79 78 Respiratory Rate 18 20 H Respiratory Effort Normal Blood Pressure 144/84 H Blood Pressure Mean 104 Pulse Ox 99 98 Oxygen Delivery Method Room Air 05/31/25 11:30 05/31/25 11:43 05/31/25 12:07 Temperature Temperature Source Pulse Rate 75 96 Respiratory Rate 17 12 Respiratory Effort Blood Pressure 154/108 H Blood Pressure Mean 123 Pulse Ox 99 99 99 Oxygen Delivery Method Room Air Room Air 05/31/25 12:15 05/31/25 13:02 05/31/25 13:15 Temperature Temperature Source Pulse Rate 74 76 75 Respiratory Rate 18 13 21 H Respiratory Effort Blood Pressure 121/75 H 144/83 H Blood Pressure Mean 88 101 Pulse Ox 96 96 94 Oxygen Delivery Method 05/31/25 13:30 05/31/25 13:45 05/31/25 14:00 Temperature Temperature Source Pulse Rate 75 74 75 Respiratory Rate 20 H 23 H 21 H Respiratory Effort Blood Pressure 151/82 H 144/80 H 134/76 H Blood Pressure Mean 101 99 93 Pulse Ox 93 93 93 Oxygen Delivery Method Positive well nourished and well developed Constitutional Narrative: BMI is 27.1. General Appearance ED: well developed and NAD HEENT Reports moist mucous membranes Neck supple and no JVD Chest Wall palpation of chest normal Resp normal respiratory effort and clear to auscultation bilaterally Cardio regular rate and regular rhythm Rhythm: abnormal rhythm ectopic beats GI soft to palpation, non-tender and non-distended Extremity normal to inspection General Extremety ED: Negative for edema or tenderness General Extremity: Negative for edema Neuro oriented x3, CN's II-XII intact bilaterally and no sensory deficits noted Sensorium / Orientation: awake and alert Motor Exam: strength 5/5 throughout Psych mental status grossly normal Heart Score History: Slightly/Non-Suspicious ECG: Nonspecific Repolarization Age: >/= 65 years Risk Factors: >/= 3 Risk Factors or History of CAD Troponin: >/=3 x Normal Limit Score: 7 MDM MDM MDM Narrative Medical decision making narrative: Differential diagnosis includes cardiac dysrhythmia, cardiac ischemia, pneumonia, bronchitis, congestive heart failure, pulmonary embolism, gastroesophageal reflux disease, and musculoskeletal pain. EKG will be obtainedto assess for cardiac dysrhythmia and cardiac ischemia. Chest x-ray will be obtained to assess for pneumonia, congestive heart failure, and bronchitis. CBCwill be obtained to assess for leukocytosis and anemia. Basic metabolic profilewill be obtained to assess for electrolyte abnormality and renal function. High-sensitivity troponin will be obtained to assess for cardiac ischemia. 2-hour repeat high-sensitivity troponin will be obtained to assess for ongoing cardiac ischemia. PT with INR and PTT will be obtained to assess for coagulopathy. D-dimer will be obtained to assess for pulmonary embolism. BNP will be obtained to assess for congestive heart failure. History & Record Review Additional record(s) reviewed:: Prior inpatient record, Prior outpatient record,Prior ED visit and Prior labs Lab Data Attestation: I reviewed the patient's lab results. Lab results narrative: CBC was hydrated and was within normal limits. Basic metabolic profile was reviewed. Glucose was mildly elevated at 164. The remainder is within normal limits. Initial high-sensitivity troponin was reviewed and was elevated at 68. 2-hour repeat high-sensitivity troponin was reviewed and was improving at 59. BNP was reviewed and was normal at 121. Labs: Laboratory Results - last 24 hr 05/31/25 05/31/25 11:13 13:14 WBC 10.1 RBC 5.54 Hgb 15.3 Hct 44.8 MCV 80.9 MCH 27.6 MCHC 34.2 RDW Std Deviation 45.4 H RDW Coeff of Lucai 15.5 H Plt Count 300 MPV 10.7 Immature Gran % (Auto) 0.600 Neut % (Auto) 70.0 Lymph % (Auto) 17.4 L Sandoval % (Auto) 9.6 Eos % (Auto) 2.0 Baso % (Auto) 0.4 Absolute Neuts (auto) 7.1 Absolute Lymphs (auto) 1.76 Nucleated RBC % 0 D-Dimer Quant (PE/DVT) 0.31 Sodium 135 Potassium 4.1 Chloride 100 Carbon Dioxide 20.0 L Anion Gap 15 BUN 25 H Creatinine 0.99 Estim Creat Clear Calc 66.13 Est GFR (MDRD) Non-Af 77 BUN/Creatinine Ratio 25.2 H Glucose 164 H Calcium 9.5 Troponin T High Sens 68 H* D Troponin T Hi Sens 2 Hr 59 H* NT pro BNP II 121 Radiography Chest X-Ray - ED: 1 View, Read by ED Physician, Read by Radiologist and Cardiomegaly Diagnostic Testing: Clinical Impression(s) from Imaging Studies Chest X-Ray 05/31/25 12:00 IMPRESSION: Stable mild cardiomegaly with pulmonary vascular congestion and interstitial lung disease. Reading Location: [facility] Portable 1 view chest x-ray was obtained. On my independent interpretation, lung henderson show mild vascular congestion and interstitial lung disease. There is mild cardiomegaly. Bony thorax is normal. There is no acute process noted. Radiologist also interpreted the x-ray and agrees. EKG Initial EKG: Attestation: I personally reviewed and interpreted this EKG as follows: Interpretation: Sinus Rhythm (With frequent PVCs with rate of 78), RBBB and Non-Specific ST Changes Comments: EKG was obtained. On my independent interpretation, shows a sinus rhythm with frequent PVCs with a rate of 78. MN interval was slightly prolonged at 214 ms. QRS interval was slightly prolonged at 152 ms. QTc interval was normal at 483 ms. There is left axis deviation at -74. There is aright bundle branch block pattern noted. There are no acute ST or T wave changes noted. Prior EKG tracings: available for review Prior: Unchanged (05/04/2025) Treatment and Re-Evaluation :: Patient was given aspirin. Patient was advised of this finding. Patient has a HEART score of 7. Patient was advised overnight increased risk of acute cardiacevent. Discussed case with embroiderer hand, Dr. Pulido. He recommended admission to the hospital. Case was discussed with the hospitalist. He will admit the patient to his service. Patient understood and was agreeable with the plan. All questions were answered. Discharge Plan Triage Chief Complaint: Chest Pain ED Provider: Marcelo Hernandez Dx/Rx/DC Orders Clinical Impression: Chest pain, Essential (primary) hypertension, Elevated troponin Prescriptions: No Action metformin 500 mg tablet extended release 24 [...] mL) insulin pen 40 unit subcut .COMPLEX Patient Comments: HAS NOT HAD FOR A FEW DAYS BECAUSE HE IS OUT AT HOME Rx Instructions: 40 units subcutaneously QAM; solifenacin 10 mg tablet 10 mg PO DAILY cholecalciferol (vitamin D3) [Vitamin D3] 50 mcg (2,000 unit) capsule 2,000 unit PO DAILY Jardiance 25 mg Tablet 25 mg PO DAILY Qty: 30 2RF Fiasp FlexTouch U-100 Insulin 100 unit/mL (3 mL) insulin pen 20 unit subcut TID Rx Instructions: 20-26 U PER DAUGHTER BASED ON WHAT PT EATS mecobalamin (vitamin B12) 1,000 mcg tablet,chewable 1,000 mcg PO DAILY carvedilol 25 mg tablet 25 mg PO BID Eliquis 5 mg tablet 5 mg PO BID diltiazem HCl [Cartia XT] 120 mg capsule,extended release 24hr 120 mg PO DAILY tamsulosin 0.4 mg capsule 0.4 mg PO BID atorvastatin 20 mg tablet 20 mg PO DAILY ferrous gluconate 324 mg (37.5 mg iron) tablet 324 mg PO DAILY 30 Days 3RF finasteride 5 mg tablet 5 mg PO DAILY isosorbide mononitrate 30 mg tablet extended release 24 hr 30 mg PO DAILY Qty: 90 3RF furosemide [Lasix] 40 mg tablet 40 mg PO PRN Primary Care Provider: Mathieu Virgen Referrals: Mathieu Virgen MD [Primary Care Provider] - Print Language: Omani Disposition Disposition: Acute Care Hospital [facility] What to do if you have Problems For any increased pain, shortness of breath, bleeding, nausea or vomiting, chestpain, or any unexpected problems, contact your Primary Care Provider. Call [facility] ([phone]) or report to the closest Emergency Room. Call 911 if necessary. 05/31/25 1656 <Electronically signed by Marcelo Hernandez DO> Cosigner Signature (if applicable): CC: Dr. Mathieu Virgen MD ~ Signed [facility] Work Phone: [phone]) 187-896109-14-2025 History and physical note Author Chilango Wheeler [facility] Note Date/Time May 31, 2025 4:31pm [facility] Medical Records Department [address] [place] [address] H&P Exam - Hospitalist 05/31/25 1453 MR#: [id number] Acct: [id number] Name: FAISAL ALARCON Rep #:[id number] : 1945 80 From: Chilango hanley DO PCP: Dr. Mathieu Virgen MD Status:REG E R Location: ED HPI - General General Date of Admission: 05/31/25 Date of Service: 05/31/25 Chief Complaint: Chest pain HPI Narrative FAISAL ALARCON, is a 80 M who presented to [facility] ED on 05/31/2025 with chest pain. Patient follows with [facility]. He was recently hospitalized here from 04/29-04/30 after an episode of syncope. History is significant for paroxysmal A-fib, nonobstructive CAD, hypertension, hyperlipidemia. Echo showed EF 60%, mild concentric LV hypertrophy, mild to moderate aortic stenosis, no other concerning findings. Stress test was negative. Was suspected that his syncopal episode was due to some degree of dehydration. He saw cardiology in the office shortly after discharge and they noted that he was hypotensive in the office, so they decreased his carvedilol dosing and held his Lasix. However, he began to have some weight gain after this so he was placed back on Lasix daily as needed. Patient has been taking the Lasix fairly regularly over the past few weeks with good urine output and denies any swelling of his lower extremities today. He began to have chest painyesterday evening. He noted that the chest pain was constant and sharp, and it was worse with leaning forward, taking a deep breath and any movement. Pain located over the substernal area. He denied any palpitations, lightheadedness/dizziness or nausea/vomiting. In the ED he was hemodynamically stable on room air at rest. CBC and BMP were benign. However, troponin was elevated with trend 68 > 59. Chest x-ray with stable mild cardiomegaly with pulmonary vascular congestion and interstitial lung disease. EKG with no ischemic changes and appeared stable from previous. Given his elevated troponins and chest pain with chest x-ray findings, hospitalist was contacted for admission. I saw the patient at bedside in the ED, daughter was present. Patient is hard of hearing but is mentally sharp. He was sitting back in bed fairly comfortablyand answering questions appropriately. He showed me that he has increasing painand discomfort when he leans forward, and notes that the pain is in the left side of his chest and radiates up into the lower part of the left neck. On further discussion, patient notes having viral URI symptoms about 4 to 5 days ago that resolved in a few days. He denies any fevers or chills or any other concerns currently. Will be admitted for further management. [facility] Medical History History of CAD (coronary artery disease) Paroxysmal atrial fibrillation Chronic pain Kidney stones GERD (gastroesophageal reflux [...] Medications ?Medication ?Instructions ?Recorded ?Last Taken ?Type metformin 500 mg tablet,extended 1,000 mg PO BID blood sugar 10/24/21 05/30/25 History release 24 hr albuterol sulfate 90 mcg/actuation 1 inh inhalation Q6 H PRN SOB #8.5 11/30/21 Unknown Rx aerosol inhaler grams finasteride 5 mg tablet 5 mg PO DAILY bph 10/27/22 0 05/30/25 History famotidine 20 mg tablet 20 mg PO BID reflux 09/22/23 05/30/25 History insulin glargine 100 unit/mL (3 40 unit subcut .COMPLE X diabetes 09/22/23 05/27/25 History mL) subcutaneous pen (Basaglar KwikPen U-100 Insulin) turmeric root extract 500 mg 1,000 mg PO DAILY viatmin 10/24/23 05/30/25 History capsule diltiazem HCl 120 mg 120 mg PO DAILY heart 05/30/25 History capsule,extended release 24 hr (Cartia XT) tamsulosin 0.4 mg capsule 0.4 mg PO BID bph 07/10/24 0 05/30/25 History cholecalciferol (vitamin D3) 50 2,000 unit PO DAILY myles pplement 07/22/24 05/30/25 History mcg (2,000 unit) capsule (Vitamin D3) solifenacin 10 mg tablet 10 mg PO DAILY bladder 07/2205/30/25 History empagliflozin 25 mg tablet 25 mg PO DAILY diabetes #30 tabs 07/25/24 05/30/25 Rx (Jardiance) flecainide 100 mg tablet 100 mg PO Q12H heart #180 ta bs 08/13/24 05/30/25 Rx atorvastatin 20 mg tablet 20 mg PO DAILY cholesterol 1 11/02/23 05/30/25 History spironolactone 25 mg tablet 25 mg PO DAILY diuretic #3 0 tabs 09/23/24 05/30/25 Rx isosorbide mononitrate 30 mg 30 mg PO DAILY heart #90 tabs 10/22/24 05/30/25 Rx tablet,extended release 24 hr insulin aspart 20 unit subcut TID diabetes 01/19/25 05/30/25 History (niacinamide)(U-100) 100 unit/mL(3 mL) subcutaneous pen (Fiasp FlexTouch U-100 Insulin) mecobalamin (vitamin B12) 1,000 1,000 mcg PO DAILY vit cottrell 01/19/25 05/30/25 History mcg chewable tablet ferrous gluconate 324 mg (37.5 mg 324 mg PO DAILY 30 d ays 04/30/25 05/30/25 Rx iron) tablet furosemide 40 mg tablet (Lasix) 40 mg PO PRN 05/22/25 05/30/25 History apixaban 5 mg tablet (Eliquis) 5 mg PO BID BLOOD THINN ER 05/31/25 05/30/25 History carvedilol 25 mg tablet 25 mg PO BID 05/31/25 History Allergy/AdvReac Type Severity Reaction Status Date / Time amoxicillin Allergy Rash Verified 05/31/25 11:08 Family History Sister Colon cancer Brother Diabetes [...] Type: coffee Number of servings: 1 ROS Constitutional Constitutional: Reports fatigue; Denies chills, fever(s) or weakness Eyes Eyes: Denies change in vision Cardiovascular Cardiovascular: Reports chest pain; Denies dyspnea on exertion, edema, lightheadedness, orthopnea or palpitations Respiratory/Chest Respiratory/Chest: Reports shortness of breath with exertion; Denies cough, productive cough, shortness of breath at rest or wheezing Gastrointestinal Gastrointestinal: Denies abdominal pain Genitourinary Genitourinary: Denies dysuria Musculoskeletal Musculoskeletal: Denies arthralgias or myalgias Neurologic Neurologic: Denies dizziness, focal weakness or headache(s) Vital Signs Vital Signs Vital Signs: 05/31/25 11:08 05/31/25 11:11 05/31/25 11:19 Temperature 97.7 F L Temperature Source Oral Pulse Rate 79 78 Respiratory Rate 18 20 H Respiratory Effort Normal Blood Pressure 144/84 H Blood Pressure Mean 104 Pulse Ox 99 98 Oxygen Delivery Method Room Air 05/31/25 11:30 05/31/25 11:43 05/31/25 12:07 Temperature Temperature Source Pulse Rate 75 96 Respiratory Rate 17 12 Respiratory Effort Blood Pressure 154/108 H Blood Pressure Mean 123 Pulse Ox 99 99 99 Oxygen Delivery Method Room Air Room Air 05/31/25 12:15 05/31/25 13:02 05/31/25 13:15 Temperature Temperature Source Pulse Rate 74 76 75 Respiratory Rate 18 13 21 H Respiratory Effort Blood Pressure 121/75 H 144/83 H Blood Pressure Mean 88 101 Pulse Ox 96 96 94 Oxygen Delivery Method 05/31/25 13:30 05/31/25 13:45 05/31/25 14:00 Temperature Temperature Source Pulse Rate 75 74 75 Respiratory Rate 20 H 23 H 21 H Respiratory Effort Blood Pressure 151/82 H 144/80 H 134/76 H Blood Pressure Mean 101 99 93 Pulse Ox 93 93 93 Oxygen Delivery Method Weight Weight: 93 kg Body Mass Index (BMI) 27.0 Physical Exam Const alert, oriented x3, no apparent distress and average body habitus Constitutional Narrative: Elderly male, mildly fatigued appearing, hard of hearing, mentally sharp, sitting back fairly comfortably in bed, conversing normally, in no acute distress. General Appearance: cooperative and comfortable HEENT normocephalic, head/scalp atraumatic, nasal mucous membranes and turbinates normal and moist oral mucous membranes HEENT Narrative: Hard of hearing. Eyes PERRL, EOMs intact bilaterally and conjunctivae normal Neck full ROM Chest inspection of chest normal and palpation of chest normal Chest Narrative: Chest discomfort with deep breaths noted. Resp normal respiratory effort, normal air movement, no use of accessory muscles and clear to auscultation bilaterally Cardio regular rate, regular rhythm, no murmurs and peripheral pulses 2+ throughout GI normal to inspection, nondistended, normoactive bowel sounds, soft to palpation,non-tender and non-distended Back/Spine normal ROM Extremity normal to inspection, full ROM and no pedal edema Skin no rashes or lesions noted Psych mental status grossly normal Results Lab / Micro Data 05/31/25 11:13 05/31/25 11:13 Labs: Laboratory Results - last 24 hr 05/31/25 11:13: WBC 10.1, RBC 5.54, Hgb 15.3, Hct 44.8, MCV 80.9, MCH 27.6, MCHC34.2, RDW Std Deviation 45.4 H, RDW Coeff of Lucia 15.5 H, Plt Count 300, MPV 10.7, Immature Gran % (Auto) 0.600, Neut % (Auto) 70.0, Lymph % (Auto) 17.4 L, Sandoval % (Auto) 9.6, Eos % (Auto) 2.0, Baso % (Auto) 0.4, Absolute Neuts (auto) 7.1, Absolute Lymphs (auto) 1.76, Nucleated RBC % 0, D-Dimer Quant (PE/DVT) 0.31, Sodium 135, Potassium 4.1, Chloride 100, Carbon Dioxide 20.0 L, Anion Gap 15, BUN 25 H, Creatinine 0.99, Estim Creat Clear Calc 66.13, Est GFR (MDRD) Non-Af 77, BUN/Creatinine Ratio 25.2 H, Glucose 164 H, Calcium 9.5, Troponin T High Sens 68 H* D, NT pro BNP II 121 05/31/25 13:14: Troponin T Hi Sens 2 Hr 59 H* Imaging Radiology Impression Chest X-Ray 05/31/25 12:00 IMPRESSION: Stable mild cardiomegaly with pulmonary vascular congestion and interstitial lung disease. Reading Location: [facility] Assessment & Plan Assessment/Plan (1) Chest pain: (2) Elevated troponin: PLAN: Plan Patient is an 80-year-old male who presented to [facility] ED on05/31/2025 with chest pain. 1. Chest pain with elevated troponins ? Admit under observation status to PCU. Cardiology consulted. Symptoms appearmost consistent with pleuritic chest pain possibly secondary to recent viral URIwith concern for pericarditis. Cannot rule out coronary disease but patient notably had stress test on 04/30 that was negative. Recent echo on 04/30 with EF 60%, mild concentric LV hypertrophy, mild to moderate aortic stenosis, otherwisewas unremarkable. Hemodynamically stable on room air at rest in the ED. Troponin trend 68 > 59, third troponin pending. EKG with no ischemic changes and stable from previous. Chest x-ray with stable mild cardiomegaly with pulmonary vascular congestion and interstitial lung disease. BNP normal, and patient fairly dry appearing on exam. Respiratory PCR panel ordered. ESR and CRP ordered. Repeat limited echo ordered to evaluate for pericarditis. Continue home medications as below. Appreciate cardiology recommendations. Keep n.p.o. at midnight for consideration of heart cath tomorrow. Chronic medical conditions: ? Nonobstructive CAD, paroxysmal A-fib, hypertension, hyperlipidemia, mild to moderate aortic stenosis: Follows with [facility]. Recent hospitalization here for syncope on 04/29-04/30. Workup unremarkable including normal stress test and benign echo as above. In normal sinus rhythm and normotensive on admit. Continue home Eliquis, statin, nitrate, spironolactone, diltiazem and flecainide. Notably was recommended at last cardiology visit thatpatient decrease home dosing of carvedilol, so we will decrease to carvedilol 12.5 mg twice daily here. Will hold home Lasix for now as patient does appear somewhat hypovolemic on exam. ? Type 2 diabetes mellitus: Blood glucose 164 on admit. Recent A1c 6.7% on 04/30. Will treat with reduced doses from home of Lantus 30 units in the morningand Humalog 10 units with meals plus sliding scale insulin, adjust as needed. ? GERD: Continue home Pepcid. ? BPH with obstructive symptoms: Continue home Flomax and finasteride. ? CJ: Continue PAP therapy at night. DVT prophylaxis: Not indicated, on Eliquis CODE STATUS: Full code, verified Expected disposition: Home, 1 to 2 days Total clinical time spent by myself addressing the patient's medical issues, reviewing all the data, and collaborating with patient's care team: 76 minutes. Charges/Coding Visit Charges Inpatient E&M: 51744 Init Hosp L3 05/31/25 1631 <Electronically signed by Chilango Wheeler DO> Cosigner Signature (if applicable): CC: Dr. Chilango Wheeler DO; Dr. Mathieu Virgen MD~ Signed [facility] Work Phone: [phone]) 919-936409-14-2025 Discharge summary [facility] Medical Records Department [address] [place] [address] Emergency Department Summary 05/31/25 MR#: [id number] Acct: [id number] Name: FAISAL ALARCON Rep #:[id number] : 1945 80 From: Marcelo Kennedy PCP: Dr. Mathieu Virgen MD Status:ADM I NO Location: [place] [address]- 1 HPI History of Present Illness Chief Complaint: Chest Pain Informant: patient Onset/Context/Timing Onset: Yesterday Activity at onset: gradual Timing: Continuous Quality: Positive for Sharp Location: Substernal, Left Parasternal and Left Chest Worsened By: Movement of Torso and Breathing Relieved By: Rest Associated Symptoms: Positive for Dyspnea; Negative for Nausea, Vomiting, Diaphoresis, Cough, Fever, Lightheadedness, Acid Reflux or Palpitations Narrative Narrative: Patient presents with chest pain that began last night. Patient states it does constant. Patient describes it as sharp. Patient states it is worse when he takes a deep breath or when he moves. Patient states it is over the substernal area and left chest. Patient states it is better when he is at rest. Patient states he feels short of breath with exertion. Patient denies any nausea or vomiting. Patient denies any lightheadedness or dizziness. Patient denies any palpitations. CVD Risk Factors: Positive for Hypertension, Diabetes and Hypercholesterolemia; Negative for FamilyHistory 1' [facility] Medical History History of CAD (coronary artery disease) Paroxysmal atrial fibrillation Chronic pain Kidney stones GERD (gastroesophageal reflux [...] Medications ?Medication ?Instructions ?Recorded ?Last Taken ?Type metformin 500 mg tablet,extended 1,000 mg PO BID blood sugar 10/24/21 05/30/25 History release 24 hr albuterol sulfate 90 mcg/actuation 1 inh inhalation Q6 H PRN SOB #8.5 11/30/21 Unknown Rx aerosol inhaler grams finasteride 5 mg tablet 5 mg PO DAILY bph 10/27/22 0 05/30/25 History famotidine 20 mg tablet 20 mg PO BID reflux 09/22/23 05/30/25 History insulin glargine 100 unit/mL (3 40 unit subcut .COMPLE X diabetes 09/22/23 05/27/25 History mL) subcutaneous pen (Basaglar KwikPen U-100 Insulin) turmeric root extract 500 mg 1,000 mg PO DAILY viatmin 10/24/23 05/30/25 History capsule diltiazem HCl 120 mg 120 mg PO DAILY heart 05/30/25 History capsule,extended release 24 hr (Cartia XT) tamsulosin 0.4 mg capsule 0.4 mg PO BID bph 07/10/24 0 05/30/25 History cholecalciferol (vitamin D3) 50 2,000 unit PO DAILY myles pplement 07/22/24 05/30/25 History mcg (2,000 unit) capsule (Vitamin D3) solifenacin 10 mg tablet 10 mg PO DAILY bladder 07/2205/30/25 History empagliflozin 25 mg tablet 25 mg PO DAILY diabetes #30 tabs 07/25/24 05/30/25 Rx (Jardiance) flecainide 100 mg tablet 100 mg PO Q12H heart #180 ta bs 08/13/24 05/30/25 Rx atorvastatin 20 mg tablet 20 mg PO DAILY cholesterol 1 11/02/23 05/30/25 History spironolactone 25 mg tablet 25 mg PO DAILY diuretic #3 0 tabs 09/23/24 05/30/25 Rx isosorbide mononitrate 30 mg 30 mg PO DAILY heart #90 tabs 10/22/24 05/30/25 Rx tablet,extended release 24 hr insulin aspart 20 unit subcut TID diabetes 01/19/25 05/30/25 History (niacinamide)(U-100) 100 unit/mL(3 mL) subcutaneous pen (Fiasp FlexTouch U-100 Insulin) mecobalamin (vitamin B12) 1,000 1,000 mcg PO DAILY vit cottrell 01/19/25 05/30/25 History mcg chewable tablet ferrous gluconate 324 mg (37.5 mg 324 mg PO DAILY 30 d ays 04/30/25 05/30/25 Rx iron) tablet furosemide 40 mg tablet (Lasix) 40 mg PO PRN 05/22/25 05/30/25 History apixaban 5 mg tablet (Eliquis) 5 mg PO BID BLOOD THINN ER 05/31/25 05/30/25 History carvedilol 25 mg tablet 25 mg PO BID 05/31/25 History Allergy/AdvReac Type Severity Reaction Status Date / Time amoxicillin Allergy Rash Verified 05/31/25 11:08 Family History Sister Colon cancer Brother Diabetes [...] ROS ROS ED Constitutional Constitutional ED: Denies chills or fever(s) Eyes Eyes: Denies blurry vision or change in vision ENT ENT ED: Denies rhinorrhea or sore throat Cardiovascular Cardiovascular: Reports as per HPI and chest pain; Denies palpitations Respiratory/Chest Respiratory/Chest: Reports dyspnea; Denies cough Gastrointestinal Gastrointestinal: Denies nausea or vomiting Genitourinary Genitourinary ED: Denies dysuria or hematuria Musculoskeletal Musculoskeletal: Reports neck pain; Denies back pain Integumentary Denies abscess or rash Neurologic Neurologic: Denies headache(s) or weakness Allergic/Immunologic Allergic/Immunologic ED: Denies mouth swelling or urticaria EXAM Physical Exam Const Vital Signs: 05/31/25 11:08 05/31/25 11:11 05/31/25 11:19 Temperature 97.7 F L Temperature Source Oral Pulse Rate 79 78 Respiratory Rate 18 20 H Respiratory Effort Normal Blood Pressure 144/84 H Blood Pressure Mean 104 Pulse Ox 99 98 Oxygen Delivery Method Room Air 05/31/25 11:30 05/31/25 11:43 05/31/25 12:07 Temperature Temperature Source Pulse Rate 75 96 Respiratory Rate 17 12 Respiratory Effort Blood Pressure 154/108 H Blood Pressure Mean 123 Pulse Ox 99 99 99 Oxygen Delivery Method Room Air Room Air 05/31/25 12:15 05/31/25 13:02 05/31/25 13:15 Temperature Temperature Source Pulse Rate 74 76 75 Respiratory Rate 18 13 21 H Respiratory Effort Blood Pressure 121/75 H 144/83 H Blood Pressure Mean 88 101 Pulse Ox 96 96 94 Oxygen Delivery Method 05/31/25 13:30 05/31/25 13:45 05/31/25 14:00 Temperature Temperature Source Pulse Rate 75 74 75 Respiratory Rate 20 H 23 H 21 H Respiratory Effort Blood Pressure 151/82 H 144/80 H 134/76 H Blood Pressure Mean 101 99 93 Pulse Ox 93 93 93 Oxygen Delivery Method Positive well nourished and well developed Constitutional Narrative: BMI is 27.1. General Appearance ED: well developed and NAD HEENT Reports moist mucous membranes Neck supple and no JVD Chest Wall palpation of chest normal Resp normal respiratory effort and clear to auscultation bilaterally Cardio regular rate and regular rhythm Rhythm: abnormal rhythm ectopic beats GI soft to palpation, non-tender and non-distended Extremity normal to inspection General Extremety ED: Negative for edema or tenderness General Extremity: Negative for edema Neuro oriented x3, CN's II-XII intact bilaterally and no sensory deficits noted Sensorium / Orientation: awake and alert Motor Exam: strength 5/5 throughout Psych mental status grossly normal Heart Score History: Slightly/Non-Suspicious ECG: Nonspecific Repolarization Age: >/= 65 years Risk Factors: >/= 3 Risk Factors or History of CAD Troponin: >/=3 x Normal Limit Score: 7 MDM MDM MDM Narrative Medical decision making narrative: Differential diagnosis includes cardiac dysrhythmia, cardiac ischemia, pneumonia, bronchitis, congestive heart failure, pulmonary embolism, gastroesophageal reflux disease, and musculoskeletal pain. EKG will be obtainedto assess for cardiac dysrhythmia and cardiac ischemia. Chest x-ray will be obtained to assess for pneumonia, congestive heart failure, and bronchitis. CBCwill be obtained to assess for leukocytosis and anemia. Basic metabolic profilewill be obtained to assess for electrolyte abnormality and renal function. High-sensitivity troponin will be obtained to assess for cardiac ischemia. 2-hour repeat high-sensitivity troponin will be obtained to assess for ongoing cardiac ischemia.PT with INR and PTT will be obtained to assess for coagulopathy. D-dimer will be obtained to assessfor pulmonary embolism. BNP will be obtained to assess for congestive heart failure. History & Record Review Additional record(s) reviewed:: Prior inpatient record, Prior outpatient record,Prior ED visit and Prior labs Lab Data Attestation: I reviewed the patient's lab results. Lab results narrative: CBC was hydrated and was within normal limits. Basic metabolic profile was reviewed. Glucose was mildly elevated at 164. The remainder is within normal limits. Initial high-sensitivity troponin was reviewed and was elevated at 68. 2-hour repeat high-sensitivity troponin was reviewed and was improving at 59. BNP was reviewed and was normal at 121. Labs: Laboratory Results - last 24 hr 05/31/25 05/31/25 11:13 13:14 WBC 10.1 RBC 5.54 Hgb 15.3 Hct 44.8 MCV 80.9 MCH 27.6 MCHC 34.2 RDW Std Deviation 45.4 H RDW Coeff of Lucia 15.5 H Plt Count 300 MPV 10.7 Immature Gran % (Auto) 0.600 Neut % (Auto) 70.0 Lymph % (Auto) 17.4 L Sandoval % (Auto) 9.6 Eos % (Auto) 2.0 Baso % (Auto) 0.4 Absolute Neuts (auto) 7.1 Absolute Lymphs (auto) 1.76 Nucleated RBC % 0 D-Dimer Quant (PE/DVT) 0.31 Sodium 135 Potassium 4.1 Chloride 100 Carbon Dioxide 20.0 L Anion Gap 15 BUN 25 H Creatinine 0.99 Estim Creat Clear Calc 66.13 Est GFR (MDRD) Non-Af 77 BUN/Creatinine Ratio 25.2 H Glucose 164 H Calcium 9.5 Troponin T High Sens 68 H* D Troponin T Hi Sens 2 Hr 59 H* NT pro BNP II 121 Radiography Chest X-Ray - ED: 1 View, Read by ED Physician, Read by Radiologist and Cardiomegaly Diagnostic Testing: Clinical Impression(s) from Imaging Studies Chest X-Ray 05/31/25 12:00 IMPRESSION: Stable mild cardiomegaly with pulmonary vascular congestion and interstitial lung disease. Reading Location: [facility] Portable 1 view chest x-ray was obtained. On my independent interpretation, lung henderson show mild vascular congestion and interstitial lung disease. There is mild cardiomegaly. Bony thorax is normal.There is no acute process noted. Radiologist also interpreted the x-ray and agrees. EKG Initial EKG: Attestation: I personally reviewed and interpreted this EKG as follows: Interpretation: Sinus Rhythm (With frequent PVCs with rate of 78), RBBB and Non- Specific ST Changes Comments: EKG was obtained. On my independent interpretation, shows a sinus rhythm with frequent PVCs with a rate of 78. MN interval was slightly prolonged at 214 ms. QRS interval was slightly prolonged at 152 ms. QTc interval was normal at 483 ms. There is left axis deviation at -74. There is aright bundle branch block pattern noted. There are no acute ST or T wave changes noted. Prior EKG tracings: available for review Prior: Unchanged (05/04/2025) Treatment and Re-Evaluation :: Patient was given aspirin. Patient was advised of this finding. Patient has a HEART score of 7. Patient was advised overnight increased risk of acute cardiacevent. Discussed case with embroiderer hand, Dr. Pulido. He recommended admission to the hospital. Case was discussed with the hospitalist. He willadmit the patient to his service. Patient understood and was agreeable with the plan. All questionswere answered. Discharge Plan Triage Chief Complaint: Chest Pain ED Provider: Marcelo Hernandez Dx/Rx/DC Orders Clinical Impression: Chest pain, Essential (primary) hypertension, Elevated troponin Prescriptions: No Action metformin 500 mg tablet extended release 24 [...] mL) insulin pen 40 unit subcut .COMPLEX Patient Comments: HAS NOT HAD FOR A FEW DAYS BECAUSE HE IS OUT AT HOME Rx Instructions: 40 units subcutaneously QAM; solifenacin 10 mg tablet 10 mg PO DAILY cholecalciferol (vitamin D3) [Vitamin D3] 50 mcg (2,000 unit) capsule 2,000 unit PO DAILY Jardiance 25 mg Tablet 25 mg PO DAILY Qty: 30 2RF Fiasp FlexTouch U-100 Insulin 100 unit/mL (3 mL) insulin pen 20 unit subcut TID Rx Instructions: 20-26 U PER DAUGHTER BASED ON WHAT PT EATS mecobalamin (vitamin B12) 1,000 mcg tablet,chewable 1,000 mcg PO DAILY carvedilol 25 mg tablet 25 mg PO BID Eliquis 5 mg tablet 5 mg PO BID diltiazem HCl [Cartia XT] 120 mg capsule,extended release 24hr 120 mg PO DAILY tamsulosin 0.4 mg capsule 0.4 mg PO BID atorvastatin 20 mg tablet 20 mg PO DAILY ferrous gluconate 324 mg (37.5 mg iron) tablet 324 mg PO DAILY 30 Days 3RF finasteride 5 mg tablet 5 mg PO DAILY isosorbide mononitrate 30 mg tablet extended release 24 hr 30 mg PO DAILY Qty: 90 3RF furosemide [Lasix] 40 mg tablet 40 mg PO PRN Primary Care Provider: Mathieu Virgen Referrals: Mathieu Virgen MD [Primary Care Provider] - Print Language: Omani Disposition Disposition: Acute Care Hospital [facility] What to do if you have Problems For any increased pain, shortness of breath, bleeding, nausea or vomiting, chestpain, or any unexpected problems, contact your Primary Care Provider. Call [facility] ([phone]) or report tothe closest Emergency Room. Call 911 if necessary. 05/31/25 7155 Cosigner Signature (if applicable): CC: Dr. Mathieu Virgen MD ~ Signed [facility]09-14-2025 History and physical note Author Chilango Wheeler [facility] Note Date/Time May 31, 2025 4:31pm [facility] Medical Records Department [address] [place] [address] H&P Exam - Hospitalist 05/31/25 1453 MR#: [id number] Acct: [id number] Name: FAISAL ALARCON Rep #:[id number] : 1945 80 From: Chilango Herrera honey DO PCP: Dr. Mathieu Virgen MD Status:REG E R Location: ED HPI - General General Date of Admission: 05/31/25 Date of Service: 05/31/25 Chief Complaint: Chest pain HPI Narrative FAISAL ALARCON, is a 80 M who presented to [facility] ED on 05/31/2025 with chest pain. Patient follows with [facility]. He was recently hospitalized here from 04/29-04/30 after an episode of syncope. History is significant for paroxysmal A-fib, nonobstructive CAD, hypertension, hyperlipidemia. Echo showed EF 60%, mild concentric LV hypertrophy, mild to moderate aortic stenosis, no other concerning findings. Stress test was negative. Was suspected that his syncopal episode was due to some degree of dehydration. He saw cardiology in the office shortly after discharge and they noted that he was hypotensive in the office, so they decreased his carvedilol dosing and held his Lasix. However, he began to have some weight gain after this so he was placed back on Lasix daily as needed. Patient has been taking the Lasix fairly regularly over the past few weeks with good urine output and denies any swelling of his lower extremities today. He began to have chest painyesterday evening. He noted that the chest pain was constant and sharp, and it was worse with leaning forward, taking a deep breath and any movement. Pain located over the substernal area. He denied any palpitations, lightheadedness/dizziness or nausea/vomiting. In the ED he was hemodynamically stable on room air at rest. CBC and BMP were benign. However, troponin was elevated with trend 68 > 59. Chest x-ray with stable mild cardiomegaly with pulmonary vascular congestion and interstitial lung disease. EKG with no ischemic changes and appeared stable from previous. Given his elevated troponins and chest pain with chest x-ray findings, hospitalist was contacted for admission. I saw the patient at bedside in the ED, daughter was present. Patient is hard of hearing but is mentally sharp. He was sitting back in bed fairly comfortablyand answering questions appropriately. He showed me that he has increasing painand discomfort when he leans forward, and notes that the pain is in the left side of his chest and radiates up into the lower part of the left neck. On further discussion, patient notes having viral URI symptoms about 4 to 5 days ago that resolved in a few days. He denies any fevers or chills or any other concerns currently. Will be admitted for further management. [facility] Medical History History of CAD (coronary artery disease) Paroxysmal atrial fibrillation Chronic pain Kidney stones GERD (gastroesophageal reflux [...] Medications ?Medication ?Instructions ?Recorded ?Last Taken ?Type metformin 500 mg tablet,extended 1,000 mg PO BID blood sugar 10/24/21 05/30/25 History release 24 hr albuterol sulfate 90 mcg/actuation 1 inh inhalation Q6 H PRN SOB #8.5 11/30/21 Unknown Rx aerosol inhaler grams finasteride 5 mg tablet 5 mg PO DAILY bph 10/27/22 0 05/30/25 History famotidine 20 mg tablet 20 mg PO BID reflux 09/22/23 05/30/25 History insulin glargine 100 unit/mL (3 40 unit subcut .COMPLE X diabetes 09/22/23 05/27/25 History mL) subcutaneous pen (Basaglar KwikPen U-100 Insulin) turmeric root extract 500 mg 1,000 mg PO DAILY viatmin 10/24/23 05/30/25 History capsule diltiazem HCl 120 mg 120 mg PO DAILY heart 05/30/25 History capsule,extended release 24 hr (Cartia XT) tamsulosin 0.4 mg capsule 0.4 mg PO BID bph 07/10/24 0 05/30/25 History cholecalciferol (vitamin D3) 50 2,000 unit PO DAILY myles pplement 07/22/24 05/30/25 History mcg (2,000 unit) capsule (Vitamin D3) solifenacin 10 mg tablet 10 mg PO DAILY bladder 07/2205/30/25 History empagliflozin 25 mg tablet 25 mg PO DAILY diabetes #30 tabs 07/25/24 05/30/25 Rx (Jardiance) flecainide 100 mg tablet 100 mg PO Q12H heart #180 ta bs 08/13/24 05/30/25 Rx atorvastatin 20 mg tablet 20 mg PO DAILY cholesterol 1 11/02/23 05/30/25 History spironolactone 25 mg tablet 25 mg PO DAILY diuretic #3 0 tabs 09/23/24 05/30/25 Rx isosorbide mononitrate 30 mg 30 mg PO DAILY heart #90 tabs 10/22/24 05/30/25 Rx tablet,extended release 24 hr insulin aspart 20 unit subcut TID diabetes 01/19/25 05/30/25 History (niacinamide)(U-100) 100 unit/mL(3 mL) subcutaneous pen (Fiasp FlexTouch U-100 Insulin) mecobalamin (vitamin B12) 1,000 1,000 mcg PO DAILY vit cottrell 01/19/25 05/30/25 History mcg chewable tablet ferrous gluconate 324 mg (37.5 mg 324 mg PO DAILY 30 d ays 04/30/25 05/30/25 Rx iron) tablet furosemide 40 mg tablet (Lasix) 40 mg PO PRN 05/22/25 05/30/25 History apixaban 5 mg tablet (Eliquis) 5 mg PO BID BLOOD THINN ER 05/31/25 05/30/25 History carvedilol 25 mg tablet 25 mg PO BID 05/31/25 History Allergy/AdvReac Type Severity Reaction Status Date / Time amoxicillin Allergy Rash Verified 05/31/25 11:08 Family History Sister Colon cancer Brother Diabetes [...] Type: coffee Number of servings: 1 ROS Constitutional Constitutional: Reports fatigue; Denies chills, fever(s) or weakness Eyes Eyes: Denies change in vision Cardiovascular Cardiovascular: Reports chest pain; Denies dyspnea on exertion, edema, lightheadedness, orthopnea or palpitations Respiratory/Chest Respiratory/Chest: Reports shortness of breath with exertion; Denies cough, productive cough, shortness of breath at rest or wheezing Gastrointestinal Gastrointestinal: Denies abdominal pain Genitourinary Genitourinary: Denies dysuria Musculoskeletal Musculoskeletal: Denies arthralgias or myalgias Neurologic Neurologic: Denies dizziness, focal weakness or headache(s) Vital Signs Vital Signs Vital Signs: 05/31/25 11:08 05/31/25 11:11 05/31/25 11:19 Temperature 97.7 F L Temperature Source Oral Pulse Rate 79 78 Respiratory Rate 18 20 H Respiratory Effort Normal Blood Pressure 144/84 H Blood Pressure Mean 104 Pulse Ox 99 98 Oxygen Delivery Method Room Air 05/31/25 11:30 05/31/25 11:43 05/31/25 12:07 Temperature Temperature Source Pulse Rate 75 96 Respiratory Rate 17 12 Respiratory Effort Blood Pressure 154/108 H Blood Pressure Mean 123 Pulse Ox 99 99 99 Oxygen Delivery Method Room Air Room Air 05/31/25 12:15 05/31/25 13:02 05/31/25 13:15 Temperature Temperature Source Pulse Rate 74 76 75 Respiratory Rate 18 13 21 H Respiratory Effort Blood Pressure 121/75 H 144/83 H Blood Pressure Mean 88 101 Pulse Ox 96 96 94 Oxygen Delivery Method 05/31/25 13:30 05/31/25 13:45 05/31/25 14:00 Temperature Temperature Source Pulse Rate 75 74 75 Respiratory Rate 20 H 23 H 21 H Respiratory Effort Blood Pressure 151/82 H 144/80 H 134/76 H Blood Pressure Mean 101 99 93 Pulse Ox 93 93 93 Oxygen Delivery Method Weight Weight: 93 kg Body Mass Index (BMI) 27.0 Physical Exam Const alert, oriented x3, no apparent distress and average body habitus Constitutional Narrative: Elderly male, mildly fatigued appearing, hard of hearing, mentally sharp, sitting back fairly comfortably in bed, conversing normally, in no acute distress. General Appearance: cooperative and comfortable HEENT normocephalic, head/scalp atraumatic, nasal mucous membranes and turbinates normal and moist oral mucous membranes HEENT Narrative: Hard of hearing. Eyes PERRL, EOMs intact bilaterally and conjunctivae normal Neck full ROM Chest inspection of chest normal and palpation of chest normal Chest Narrative: Chest discomfort with deep breaths noted. Resp normal respiratory effort, normal air movement, no use of accessory muscles and clear to auscultation bilaterally Cardio regular rate, regular rhythm, no murmurs and peripheral pulses 2+ throughout GI normal to inspection, nondistended, normoactive bowel sounds, soft to palpation,non-tender and non-distended Back/Spine normal ROM Extremity normal to inspection, full ROM and no pedal edema Skin no rashes or lesions noted Psych mental status grossly normal Results Lab / Micro Data 05/31/25 11:13 05/31/25 11:13 Labs: Laboratory Results - last 24 hr 05/31/25 11:13: WBC 10.1, RBC 5.54, Hgb 15.3, Hct 44.8, MCV 80.9, MCH 27.6, MCHC34.2, RDW Std Deviation 45.4 H, RDW Coeff of Lucia 15.5 H, Plt Count 300, MPV 10.7, Immature Gran % (Auto) 0.600, Neut % (Auto) 70.0, Lymph % (Auto) 17.4 L, Sandoval % (Auto) 9.6, Eos % (Auto) 2.0, Baso % (Auto) 0.4, Absolute Neuts (auto) 7.1, Absolute Lymphs (auto) 1.76, Nucleated RBC % 0, D-Dimer Quant (PE/DVT) 0.31, Sodium 135, Potassium 4.1, Chloride 100, Carbon Dioxide 20.0 L, Anion Gap 15, BUN 25 H, Creatinine 0.99, Estim Creat Clear Calc 66.13, Est GFR (MDRD) Non-Af 77, BUN/Creatinine Ratio 25.2 H, Glucose 164 H, Calcium 9.5, Troponin T High Sens 68 H* D, NT pro BNP II 121 05/31/25 13:14: Troponin T Hi Sens 2 Hr 59 H* Imaging Radiology Impression Chest X-Ray 05/31/25 12:00 IMPRESSION: Stable mild cardiomegaly with pulmonary vascular congestion and interstitial lung disease. Reading Location: [facility] Assessment & Plan Assessment/Plan (1) Chest pain: (2) Elevated troponin: PLAN: Plan Patient is an 80-year-old male who presented to [facility] ED on05/31/2025 with chest pain. 1. Chest pain with elevated troponins ? Admit under observation status to PCU. Cardiology consulted. Symptoms appearmost consistent with pleuritic chest pain possibly secondary to recent viral URIwith concern for pericarditis. Cannot rule out coronary disease but patient notably had stress test on 04/30 that was negative. Recent echo on 04/30 with EF 60%, mild concentric LV hypertrophy, mild to moderate aortic stenosis, otherwisewas unremarkable. Hemodynamically stable on room air at rest in the ED. Troponin trend 68 > 59, third troponin pending. EKG with no ischemic changes and stable from previous. Chest x-ray with stable mild cardiomegaly with pulmonary vascular congestion and interstitial lung disease. BNP normal, and patient fairly dry appearing on exam. Respiratory PCR panel ordered. ESR and CRP ordered. Repeat limited echo ordered to evaluate for pericarditis. Continue home medications as below. Appreciate cardiology recommendations. Keep n.p.o. at midnight for consideration of heart cath tomorrow. Chronic medical conditions: ? Nonobstructive CAD, paroxysmal A-fib, hypertension, hyperlipidemia, mild to moderate aortic stenosis: Follows with [facility]. Recent hospitalization here for syncope on 04/29-04/30. Workup unremarkable including normal stress test and benign echo as above. In normal sinus rhythm and normotensive on admit. Continue home Eliquis, statin, nitrate, spironolactone, diltiazem and flecainide. Notably was recommended at last cardiology visit thatpatient decrease home dosing of carvedilol, so we will decrease to carvedilol 12.5 mg twice daily here. Will hold home Lasix for now as patient does appear somewhat hypovolemic on exam. ? Type 2 diabetes mellitus: Blood glucose 164 on admit. Recent A1c 6.7% on 04/30. Will treat with reduced doses from home of Lantus 30 units in the morningand Humalog 10 units with meals plus sliding scale insulin, adjust as needed. ? GERD: Continue home Pepcid. ? BPH with obstructive symptoms: Continue home Flomax and finasteride. ? CJ: Continue PAP therapy at night. DVT prophylaxis: Not indicated, on Eliquis CODE STATUS: Full code, verified Expected disposition: Home, 1 to 2 days Total clinical time spent by myself addressing the patient's medical issues, reviewing all the data, and collaborating with patient's care team: 76 minutes. Charges/Coding Visit Charges Inpatient E&M: 47388 Init Hosp L3 05/31/25 1631 <Electronically signed by Chilango Wheeler DO> Cosigner Signature (if applicable): CC: Dr. Chilango Wheeler DO; Dr. Mathieu Virgen MD~ Signed [facility] Work Phone: [phone] 162-495109-14-2025 History and physical note [facility] Medical Records Department [address] [place] [address] H&P Exam - Hospitalist 05/31/25 1453 MR#: [id number] Acct: [id number] Name: FAISAL ALARCON Rep #:[id number] : 1945 80 From: Chilango hanley DO PCP: Dr. Mathieu Virgen MD Status:REG E R Location: ED HPI - General General Date of Admission: 05/31/25 Date of Service: 05/31/25 Chief Complaint: Chest pain HPI Narrative FAISAL ESHA, is a 80 M who presented to [facility] ED on 05/31/2025 with chest pain. Patient follows with [facility]. He was recently hospitalized here from 04/29-04/30 after an episode of syncope. History is significant for paroxysmal A-fib, nonobstructive CAD, hypertension, hyperlipidemia. Echo showed EF 60%, mild concentric LV hypertrophy, mild to moderate aortic stenosis, no other concerning findings. Stress test was negative. Was suspected that his syncopal episode was due to some degree of dehydration. He saw cardiology in the office shortly after discharge and they noted that he was hypotensive in the office, so they decreased his carvedilol dosing and held his Lasix. However, he began to have some weight gain after this so he was placed back on Lasix daily as needed. Patient has been taking the Lasix fairly regularly over the past few weeks with good urine output and denies any swelling of his lower extremities today. He began to have chest painyesterday evening. He noted that the chest pain was constant and sharp, and it was worse with leaning forward, taking a deep breath and any movement. Pain located over the substernal area. He denied any palpitations, lightheadedness/dizziness or nausea/vomiting. In the ED he was hemodynamically stable on room air at rest. CBC and BMP were benign. However, troponin was elevated with trend 68 > 59. Chestx-ray with stable mild cardiomegaly with pulmonary vascular congestion and interstitial lung disease. EKG with no ischemic changes and appeared stable from previous. Given his elevated troponins and chest pain with chest x-ray findings, hospitalist was contacted for admission. I saw the patient at bedside in the ED, daughter was present. Patient is hard of hearing but is mentally sharp. He was sitting back in bed fairly comfortablyand answering questions appropriately. He showed me that he has increasing painand discomfort when he leans forward, and notes that the pain is in the left side of his chest and radiates up into the lower part of the left neck. On further disc ussion, patient notes having viral URI symptoms about 4 to 5 days ago that resolved in a few days. He denies any fevers or chills or any other concerns currently. Will be admitted for further management. [facility] Medical History History of CAD (coronary artery disease) Paroxysmal atrial fibrillation Chronic pain Kidney stones GERD (gastroesophageal reflux [...] Medications ?Medication ?Instructions ?Recorded ?Last Taken ?Type metformin 500 mg tablet,extended 1,000 mg PO BID blood sugar 10/24/21 05/30/25 History release 24 hr albuterol sulfate 90 mcg/actuation 1 inh inhalation Q6 H PRN SOB #8.5 11/30/21 Unknown Rx aerosol inhaler grams finasteride 5 mg tablet 5 mg PO DAILY bph 10/27/22 0 05/30/25 History famotidine 20 mg tablet 20 mg PO BID reflux 09/22/23 05/30/25 History insulin glargine 100 unit/mL (3 40 unit subcut .COMPLE X diabetes 09/22/23 05/27/25 History mL) subcutaneous pen (Smitaaglar KwikPen U-100 Insulin) turmeric root extract 500 mg 1,000 mg PO DAILY viatmin 10/24/23 05/30/25 History capsule diltiazem HCl 120 mg 120 mg PO DAILY heart 05/30/25 History capsule,extended release 24 hr (Cartia XT) tamsulosin 0.4 mg capsule 0.4 mg PO BID bph 07/10/24 0 05/30/25 History cholecalciferol (vitamin D3) 50 2,000 unit PO DAILY myles pplement 07/22/24 05/30/25 History mcg (2,000 unit) capsule (Vitamin D3) solifenacin 10 mg tablet 10 mg PO DAILY bladder 11/05 /24 09/13/25 History empagliflozin 25 mg tablet 25 mg PO DAILY diabetes #30 tabs 07/25/24 05/30/25 Rx (Jardiance) flecainide 100 mg tablet 100 mg PO Q12H heart #180 ta bs 08/13/24 05/30/25 Rx atorvastatin 20 mg tablet 20 mg PO DAILY cholesterol 1 11/02/23 05/30/25 History spironolactone 25 mg tablet 25 mg PO DAILY diuretic #3 0 tabs 09/23/24 05/30/25 Rx isosorbide mononitrate 30 mg 30 mg PO DAILY heart #90 tabs 10/22/24 05/30/25 Rx tablet,extended release 24 hr insulin aspart 20 unit subcut TID diabetes 01/19/25 05/30/25 History (niacinamide)(U-100) 100 unit/mL(3 mL) subcutaneous pen (Fiasp FlexTouch U-100 Insulin) mecobalamin (vitamin B12) 1,000 1,000 mcg PO DAILY vit cottrell 01/19/25 05/30/25 History mcg chewable tablet ferrous gluconate 324 mg (37.5 mg 324 mg PO DAILY 30 d ays 04/30/25 05/30/25 Rx iron) tablet furosemide 40 mg tablet (Lasix) 40 mg PO PRN 05/22/25 05/30/25 History apixaban 5 mg tablet (Eliquis) 5 mg PO BID BLOOD THINN ER 05/31/25 05/30/25 History carvedilol 25 mg tablet 25 mg PO BID 05/31/25 History Allergy/AdvReac Type Severity Reaction Status Date / Time amoxicillin Allergy Rash Verified 05/31/25 11:08 Family History Sister Colon cancer Brother Diabetes [...] Type: coffee Number of servings: 1 ROS Constitutional Constitutional: Reports fatigue; Denies chills, fever(s) or weakness Eyes Eyes: Denies change in vision Cardiovascular Cardiovascular: Reports chest pain; Denies dyspnea on exertion, edema, lightheadedness, orthopnea or palpitations Respiratory/Chest Respiratory/Chest: Reports shortness of breath with exertion; Denies cough, productive cough, shortness of breath at rest or wheezing Gastrointestinal Gastrointestinal: Denies abdominal pain Genitourinary Genitourinary: Denies dysuria Musculoskeletal Musculoskeletal: Denies arthralgias or myalgias Neurologic Neurologic: Denies dizziness, focal weakness or headache(s) Vital Signs Vital Signs Vital Signs: 05/31/25 11:08 05/31/25 11:11 05/31/25 11:19 Temperature 97.7 F L Temperature Source Oral Pulse Rate 79 78 Respiratory Rate 18 20 H Respiratory Effort Normal Blood Pressure 144/84 H Blood Pressure Mean 104 Pulse Ox 99 98 Oxygen Delivery Method Room Air 05/31/25 11:30 05/31/25 11:43 05/31/25 12:07 Temperature Temperature Source Pulse Rate 75 96 Respiratory Rate 17 12 Respiratory Effort Blood Pressure 154/108 H Blood Pressure Mean 123 Pulse Ox 99 99 99 Oxygen Delivery Method Room Air Room Air 05/31/25 12:15 05/31/25 13:02 05/31/25 13:15 Temperature Temperature Source Pulse Rate 74 76 75 Respiratory Rate 18 13 21 H Respiratory Effort Blood Pressure 121/75 H 144/83 H Blood Pressure Mean 88 101 Pulse Ox 96 96 94 Oxygen Delivery Method 05/31/25 13:30 05/31/25 13:45 05/31/25 14:00 Temperature Temperature Source Pulse Rate 75 74 75 Respiratory Rate 20 H 23 H 21 H Respiratory Effort Blood Pressure 151/82 H 144/80 H 134/76 H Blood Pressure Mean 101 99 93 Pulse Ox 93 93 93 Oxygen Delivery Method Weight Weight: 93 kg Body Mass Index (BMI) 27.0 Physical Exam Const alert, oriented x3, no apparent distress and average body habitus Constitutional Narrative: Elderly male, mildly fatigued appearing, hard of hearing, mentally sharp, sitting back fairly comfortably in bed, conversing normally, in no acute distress. General Appearance: cooperative and comfortable HEENT normocephalic, head/scalp atraumatic, nasal mucous membranes and turbinates normal and moist oral mucous membranes HEENT Narrative: Hard of hearing. Eyes PERRL, EOMs intact bilaterally and conjunctivae normal Neck full ROM Chest inspection of chest normal and palpation of chest normal Chest Narrative: Chest discomfort with deep breaths noted. Resp normal respiratory effort, normal air movement, no use of accessory muscles and clear to auscultation bilaterally Cardio regular rate, regular rhythm, no murmurs and peripheral pulses 2+ throughout GI normal to inspection, nondistended, normoactive bowel sounds, soft to palpation,non-tender and non-distended Back/Spine normal ROM Extremity normal to inspection, full ROM and no pedal edema Skin no rashes or lesions noted Psych mental status grossly normal Results Lab / Micro Data 05/31/25 11:13 05/31/25 11:13 Labs: Laboratory Results - last 24 hr 05/31/25 11:13: WBC 10.1, RBC 5.54, Hgb 15.3, Hct 44.8, MCV 80.9, MCH 27.6, MCHC34.2, RDW Std Deviation 45.4 H, RDW Coeff of Lucia 15.5 H, Plt Count 300, MPV 10.7, Immature Gran % (Auto) 0.600, Neut % (Auto) 70.0, Lymph % (Auto) 17.4 L, Sandoval % (Auto) 9.6, Eos % (Auto) 2.0, Baso % (Auto) 0.4, AbsoluteNeuts (auto) 7.1, Absolute Lymphs (auto) 1.76, Nucleated RBC % 0, D-Dimer Quant (PE/DVT) 0.31, Sodium 135, Potassium 4.1, Chloride 100, Carbon Dioxide 20.0 L, Anion Gap 15, BUN 25 H, Creatinine 0.99,Estim Creat Clear Calc 66.13, Est GFR (MDRD) Non- Af 77, BUN/Creatinine Ratio 25.2 H, Glucose 164 H,Calcium 9.5, Troponin T High Sens 68 H* D, NT pro BNP II 121 05/31/25 13:14: Troponin T Hi Sens 2 Hr 59 H* Imaging Radiology Impression Chest X-Ray 05/31/25 12:00 IMPRESSION: Stable mild cardiomegaly with pulmonary vascular congestion and interstitial lung disease. Reading Location: [facility] Assessment & Plan Assessment/Plan (1) Chest pain: (2) Elevated troponin: PLAN: Plan Patient is an 80-year-old male who presented to [facility] ED on05/31/2025 with chest pain. 1. Chest pain with elevated troponins ? Admit under observation status to PCU. Cardiology consulted. Symptoms appearmost consistent with pleuritic chest pain possibly secondary to recent viral URIwith concern for pericarditis. Cannot rule out coronary disease but patient notably had stress test on 04/30 that was negative. Recent echo on04/30 with EF 60%, mild concentric LV hypertrophy, mild to moderate aortic stenosis, otherwisewas unremarkable. Hemodynamically stable on room air at rest in the ED. Troponin trend 68 > 59, third troponin pending. EKG with no ischemic changes and stable from previous. Chest x-ray with stable mildcardiomegaly with pulmonary vascular congestion and interstitial lung disease. BNP normal, and patient fairly dry appearing on exam. Respiratory PCR panel ordered. ESR and CRP ordered. Repeat limitedecho ordered to evaluate for pericarditis. Continue home medications as below. Appreciate cardiology recommendations. Keep n.p.o. at midnight for consideration of heart cath tomorrow. Chronic medical conditions: ? Nonobstructive CAD, paroxysmal A-fib, hypertension, hyperlipidemia, mild to moderate aortic stenosis: Follows with [facility]. Recent hospitalization here for syncope on 04/29-04/30. Workup unremarkable including normal stress test and benign echo as above. In normal sinus rhythm and normote nsive on admit. Continue home Eliquis, statin, nitrate, spironolactone, diltiazem and flecainide. Notably was recommended at last cardiology visit thatpatient decrease home dosing of carvedilol, so we will decrease to carvedilol 12.5 mg twice daily here. Will hold home Lasix for now as patient doesappear somewhat hypovolemic on exam. ? Type 2 diabetes mellitus: Blood glucose 164 on admit. Recent A1c 6.7% on 04/30. Will treat with reduced doses from home of Lantus 30 units in the morningand Humalog 10 units with meals plus sliding scale insulin, adjust as needed. ? GERD: Continue home Pepcid. ? BPH with obstructive symptoms: Continue home Flomax and finasteride. ? CJ: Continue PAP therapy at night. DVT prophylaxis: Not indicated, on Eliquis CODE STATUS: Full code, verified Expected disposition: Home, 1 to 2 days Total clinical time spent by myself addressing the patient's medical issues, reviewing all the data, and collaborating with patient's care team: 76 minutes. Charges/Coding Visit Charges Inpatient E&M: 95675 Init Hosp L3 05/31/25 1631 Cosigner Signature (if applicable): CC: Dr. Chilango Wheeler DO; Dr. Mathieu Virgen MD~ Signed [facility]09-14-2025 Radiology Diagnostic study note [facility] Imaging Services [address] [place] [address] Chest 1 View (Portable) MR#: [id number] Acct: [id number] Name: FAISAL ALARCON Rep #: [id number] : 1945 M 80 From: Desmond Gandara MD PCP: Dr. Mathieu Virgen MD Status: REG E R Study:Chest 1 View (Portable) Date of Exam: 05/31/25 Exam# [id number] Ordering Dr: Marcelo Hernandez DO PROCEDURE: CHEST 1 VIEW (PORTABLE) 05/31/2025 REASON FOR EXAM: CHEST PAIN TECHNIQUE: Frontal view of the chest. COMPARISON: CT angio chest 04/29/2025, chest x-ray 01/19/2025 FINDINGS: Hardware: None. Heart: Heart size is mildly enlarged. Lungs: Diffuse pulmonary vascular congestion and interstitial lung opacities. No pneumothorax. Bones: Degenerative changes are identified within the thoracic spine. RAD/Chest 1 View (Portable) IMPRESSION: Stable mild cardiomegaly with pulmonary vascular congestion and interstitial lung disease. Reading Location: [facility] CC: Dr. Marcelo Hernandez DO; Dr. Mathieu Virgen MD ~ Co Director: Signed [facility]08-14-2025 Discharge summary Author Chilango Wheeler [facility] Note Date/Time April 30, 2025 4: 01pm [facility] Medical Records Department [address] [place] [address] Instructions for Home/Discharge Instructions 04/30/25 1558 MR#: [id number] Acct: [id number] Name: FAISAL ALARCON Rep #:[id number] : 1945 80 From: Chilango hanley DO [...] Visit: Episode of passing out Attending Provider: Chilagno Wheeler Primary Care Provider: Mathieu Virgen Consulting [...] DO; Dr. Mathieu Virgen MD ~ Signed [facility] Work Phone: [phone] Discharge summary [facility] Medical Records Department [address] [place] [address] Instructions for Home/Discharge Instructions 04/30/25 1558 MR#: [id number] Acct: [id number] Name: FAISAL ALARCON Rep #:[id number] : 1945 80 From: Chilango hanley DO [...] be placed): Home, Self Care 04/30/25 1601[facility] DO CC: Dr. Narda Prather DO; Dr. Mathieu Virgen MD ~ Signed [facility]08[facility]14[facility] History and physical note Author Narda Arazia [facility] Note Date/Time April 30, 2025 6: 45am [facility] Medical Records Department [address] [place] [address] H&P Exam - Hospitalist 04/29/25 190 MR#: [id number] Acct: [id number] Name: FAISAL ALARCON Rep #:[id number] : 1945 80 From: Narda Musa DO PCP: Dr. Mathieu Virgen MD Status:ADM I NO Location: [address] 1 HPI - General General Date of [...] walker prn at baseline who presents to [facility] ER complaining of syncopal event. [...] expected to be less than 2 midnights. [facility] Medical History (Updated 04/29/25 @ 20:20 [...] (Auto) 71.4 H, Lymph % (Auto) 14.5 L,Sandoval % (Auto) 10.5 H, Eos % (Auto) [...] most likely reactive lymph nodes. Reading Location: [facility] Assessment & Plan Assessment/Plan (1) Syncope: QUALIFIERS: [...] 85 minutes. Charges/Coding Visit Charges OBSV E&M: 59366 Observ/hosp same date L3 04/30/25 0645 <Electronically signed by Narda Prather DO> Cosigner Signature (if applicable): CC: Dr. Narda Prather DO; Dr. Mathieu Virgen MD~ Signed [facility] Work Phone: 1(639) 353-895308-14-2025 History and physical note [facility] Medical Records Department [address] [place] [address] H&P Exam - Hospitalist 04/29/25 1905 MR#: [id number] Acct: [id number] Name: FAISAL ALARCON Rep #:[id number] : 1945 80 From: Narda Musa DO PCP: Dr. Mathieu Virgen MD Status:ADM I NO Location: [place] [address] HPI - General General Date of Admission: [...] walker prn at baseline who presents to [facility] ER complaining of syncopal event. [...] is expected mansi less than 2 midnights. [facility] Medical History (Updated 04/29/25 @ 20:20 [...] bete 09/22/23 Unknown History mL) subcutaneous pen (Smitaaglnimesh Maldonado U-100 Insulin) turmeric root extract 500 [...] (Auto) 71.4 H, Lymph % (Auto) 14.5 L,Sandoval % (Auto) 10.5 H, Eos % (Auto) [...] most likely reactive lymph nodes. Reading Location: [facility] Assessment & Plan Assessment/Plan (1) Syncope: QUALIFIERS: [...] 85 minutes. Charges/Coding Visit Charges OBSV E&M: 80777 Observ/hosp same date L3 04/30/25 0645 Cosigner Signature (if applicable): CC: Dr. Narda Prather DO; Dr. Mathieu Virgen MD~ Signed [facility]08-13-2025 Discharge summary Author Yola Ally [facility] Note Date/Time April 29, 2025 7: 15pm [facility] Medical Records Department [address] [place] [address] Emergency Department Summary 04/29/25 MR#: [id number] Acct: [id number] Name: FAISAL ALARCON Rep #:[id number] : 1945 80 From: Yola Canales MD [...] before. He did eat and drink today. [facility] Medical History Diastolic dysfunction Dyspnea Diabetes [...] 71.4 H Lymph % (Auto) 14.5 L Sandoval % (Auto) 10.5 H Eos % (Auto) [...] most likely reactive lymph nodes. Reading Location: [facility] Management Discussion w/another healthcare provider: Hospitalist Discharge [...] MD [Primary Care Provider] - Print Language: Omani What to do if you have Problems For any increased pain, shortness of breath, bleeding, nausea or vomiting, chestpain, or any unexpected problems, contact your Primary Care Provider. Call [facility] ([phone]) or report to the closest Emergency Room. Call 911 if necessary. 04/29/251914 <Electronically signed by Yola Canales MD> Cosigner Signature (if applicable): CC: Dr. Mathieu Virgen MD ~ Signed [facility] Work Phone: [phone] Discharge summary [facility] Medical Records Department [address] [place] [address] Emergency Department Summary 04/29/25 MR#: [id number] Acct: [id number] Name: FAISAL ALARCON Rep #:[id number] : 1945 80 From: Yola Canales MD [...] before. He did eat and drink today. [facility] Medical History Diastolic dysfunction Dyspnea Diabetes [...] 71.4 H Lymph % (Auto) 14.5 L Sandoval % (Auto) 10.5 H Eos % (Auto) [...] Reading Location: [facility] Management Discussion w/another healthcare provider: Hospitalist Discharge [...] MD [Primary Care Provider] - Print Language: Omani What to do if you have Problems For any increased pain, shortness of breath, bleeding, nausea or vomiting, chestpain, or any unexpected problems, contact your Primary Care Provider. Call [facility] ([phone]) or report tothe closest Emergency Room. Call 911 if necessary. 04/29/251914 Cosigner Signature (if applicable): CC: Dr. Mathieu Virgen MD ~ Signed [facility]08-13-2025 Radiology Diagnostic study note [facility] Imaging Services [address] [place] [address] CTA Chest W/WO Contrast MR#: [id number] Acct: [id number] Name: FAISAL ALARCON Rep #: [id number] : 1945 M 80 From: Alcira Tierney MD PCP: Dr. Mathieu Virgen MD Status: REG E R Study:CTA Chest W/WO Contrast Date of Exam: 04/29/25 Exam# [id number] Ordering Dr: Honey Canales MD EXAM: CT Angiography Chest Without [...] most likely reactive lymph nodes. Reading Location: [facility] CC: Dr. Yola Canales MD; Dr. Mathieu Virgen MD ~ Co Director: Signed [facility]07-23-2025 Evaluation note* Diagnosis Onset Date Resolution Status Admit Date Anemia acute April 08 9:06am History of atrial fibrillation acute April 08, 2025 9:06am Hypoxia acute April 08 9:06am Obesity (BMI 30-39.9) acute Mar 9:06am Obstructive sleep apnea acute J 2024 9:06am Restrictive lung disease acute April 08, 2025 9:06am Shortness of breath on exertion chronic April 08, 2025 9:06am Elevated troponin resolved April 29, 2025 7:37pm Medical non-compliance resolved 2024 7:37pm Syncope resolved April 29 7:37pm History of CAD (coronary artery disease) inactive April 29 7:37pm Paroxysmal atrial fibrillation inact lynne April 29, 2025 7:37pm Aortic stenosis acute May 042024 9:43am Essential (primary) hypertension chronic May 04 9:43am Hyperlipidemia chronic April 9:43am 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 May 04, 2025 9:43am 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 May 04 9:43am Shortness of breath on exertion chronic May 04 9:43am Syncope resolved May 04, 025 9:43am Paroxysmal atrial fibrillation inact lynne May 04, 2025 9:43am Chest pain acute May 2:56pm Elevated troponin acute 2024 2:56pm [facility] Work Phone: 1(339) 596-369107-23-2025 Evaluation note* Diagnosis Onset Date Resolution Status Admit Date Anemia acute April 08 9:06am History of atrial fibrillation acute April 08, 2025 9:06am Hypoxia acute April 08 9:06am Obesity (BMI 30-39.9) acute Mar 9:06am Obstructive sleep apnea acute J 2024 9:06am Restrictive lung disease acute April 08, 2025 9:06am Shortness of breath on exertion chronic April 08, 2025 9:06am Elevated troponin resolved April 29, 2025 7:37pm Medical non-compliance resolved 2024 7:37pm Syncope resolved April 29 025 7:37pm History of CAD (coronary artery disease) inactive April 29 7:37pm Paroxysmal atrial fibrillation inact lynne April 29, 2025 7:37pm Aortic stenosis acute May 042024 9:43am Essential (primary) hypertension chronic May 04 9:43am Hyperlipidemia chronic April 9:43am 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 May 04, 2025 9:43am 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 May 04 9:43am Shortness of breath on exertion chronic May 04 9:43am Syncope resolved May 04, 2 025 9:43am Paroxysmal atrial fibrillation inact lynne May 04, 2025 9:43am Aortic stenosis acute May 31, 2025 2:56pm Chest pain acute May 2:56pm Elevated troponin acute 2024 2:56pm History of atrial fibrillation acute May 31, 2025 2:56pm [facility] Work Phone: [phone]) 813-909707-23-2025 Evaluation note* Diagnosis Onset Date Resolution Status Admit Date Anemia acute April 08 9:06am History of atrial fibrillation acute April 08, 2025 9:06am Hypoxia acute April 08 9:06am Obesity (BMI 30-39.9) acute Mar 9:06am Obstructive sleep apnea acute J 2024 9:06am Restrictive lung disease acute April 08, 2025 9:06am Shortness of breath on exertion chronic April 08, 2025 9:06am Elevated troponin resolved April 29, 2025 7:37pm Medical non-compliance resolved Au 2024 7:37pm Syncope resolved April 29, 025 7:37pm History of CAD (coronary artery disease) inactive April 29 7:37pm Paroxysmal atrial fibrillation inact lynne April 29, 2025 7:37pm Aortic stenosis acute May 042024 9:43am Essential (primary) hypertension chronic May 04 9:43am Hyperlipidemia chronic April 9:43am 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 May 04, 2025 9:43am 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 May 04 9:43am Shortness of breath on exertion chronic May 04 9:43am Syncope resolved May 04 025 9:43am Paroxysmal atrial fibrillation inact lynne May 04, 2025 9:43am Aortic stenosis acute May 31, 2025 2:56pm History of atrial fibrillation acute May 31, 2025 2:56pm Chest pain resolved May 2:56pm Elevated troponin resolved 2024 2:56pm Aortic stenosis acute June 11, 2025 11:18am Essential (primary) hypertension chronic June 11, 2025 11:18am Hyperlipidemia chronic June 11, 2025 11:18am 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 [facility]07-18-2025 Miscellaneous Notes* Telephone Encounter - Jaylene Henley LPN - 04/03/2025 11:11 AM EDT Faxed application. * Telephone Encounter - Mathieu Virgen MD - 04/03/2025 10:45 AM EDT done * Telephone Encounter - Janet King MA - 04/02/2025 4:14 PM EDT Type of form: Prescription Assistance Form received via walk in When form is completed, Fax form to [facility] Form has been forwarded to Physician Desk: Dr. Virgen Prescription pended to go to [facility], as listed on form. Janet King MA [facility] Telephone encounter Note * Telephone Encounter - Mathieu Virgen MD - 04/03/2025 10:45 AM EDT done [facility]07-17-2025 Telephone encounter Note* Telephone Encounter - Janet King MA - 04/02/2025 4:14 PM EDT Type of form: Prescription Assistance Form received via walk in When form is completed, Fax form to [facility] Form has been forwarded to Physician Desk: Dr. Virgen Prescription pended to go to [facility], as listed on form. Janet King MA [facility]07-16-2025 Radiology Diagnostic study note [facility] Imaging Services [address] [place] [address] [id number] Chest without Contrast MR#: [id number] Acct: [id number] Name: FAISAL ALARCON Rep #: [id number] : 1945 M 79 From: Ernst Ngo DO PCP: Dr. Mathieu Virgen MD Status: RAJIV [place] Study:Chest without Contrast Date of Exam: 04/01/25 Exam# [id number] Ordering Dr: Megan Macario [employer]-C PROCEDURE: CHEST WITHOUT CONTRAST 04/01/2025 REASON FOR [...] Cardiomegaly and coronary artery disease. Reading Location: [facility] CC: Dr. Mathieu Virgen MD; Megan Macario NP ~ Co Director: Signed [facility]07-11-2025 Telephone encounter Note* Telephone Encounter - Christian Bob LPN - 03/27/2025 4:01 PM EDT [facility] Christian Bob LPN [facility]07-11-2025 Miscellaneous Notes* Telephone Encounter - Christian Bob LPN - 03/27/2025 4:01 PM EDT [facility]. Christian Bob LPN * Telephone Encounter - Nisha Wilson - 03/27/2025 3:38 PM EDT Patient's daughter, Farida calling today asking if the medication refill can be completed before theend of the day. Patient is out of the medication. [facility] Telephone encounter Note * Telephone Encounter - Nisha Wilson - 03/27/2025 3:38 PM EDT Patient's daughter, Farida calling today asking if the medication refill can be completed before theend of the day. Patient is out of the medication. [facility]06-16-2025 Procedure notey [facility]monary Services/Neurology [address] [place] [address] MR#: [id number] Acct: [id number] Name: FAISAL ALARCON Rep #:[id number] : 1945 79 From: Marvin Reeves DO Referring Dr: Megan Macario HOT PACKER-C Status: REG CLI Location: PSN Date: Sex: M C PSN 6 Minute Walk Test 6 Minute Walk Test 6 Minute Walk Test: 6 Minute Walk Test PSN:6-Minute Walk Test Start: 02/26/25 14:00 Freq: Status: Active Protocol: RESP.6MINW Document 02/26/25 14:00 AMH (Rec: 02/26/25 14:37 [facility] [id number]) 6 Minute Walk Test Date Performed 02/26/25 [...] Walked (ft) 02/26/25 14:07 Cardiopulmonary Services by RoberDecember PATIENT ARRIVED FOR WALK TESTING VIA MOTORIZED [...] Dictated: 03/02/25 1015 Date Transcribed: 03/02/25 1015 Co Director: Dr. Marvin Reeves DO Signed [facility]05-28-2025 Miscellaneous Notes* Telephone Encounter - Jaylene Henley LPN - 02/11/2025 9:09 AM EDT [facility] requesting DM note faxed to them documenting diabetes visit. Sent as requested. [facility]05-[facility] Telephone encounter Note * Telephone Encounter - Jaylene Henley LPN - 02/11/2025 9:09 AM EDT [facility] requesting DM note faxed to them documenting diabetes visit. Sent as requested. [facility]05-23-2025 Telephone encounter Note* Telephone Encounter - Jaylene Henley LPN - 02/06/2025 1:16 PM EDT Scan on 02/05/2025 4:36 PM by ProviderJulian PA-C: Hematology [facility]05-23-2025 Miscellaneous Notes* Telephone Encounter - Jaylene Henley LPN - 02/06/2025 1:16 PM EDT Scan on 02/05/2025 4:36 PM by ProviderJulian PA-C: Hematology documented in this encounterOhio Valley Hospital05-12-2025 NoteHNO ID: [id number] Author: MATHIEU VIRGEN MD Service: ? Author [...] every afternoon. Ordered by cardiology Blood-Glucose Sensor (AdTrib G7 SENSOR) sayra Apply new sensor every [...] Quit date: 09/17/1980 Year (more content not included)...[facility]05-12-2025 History of Present illness Narrative* Mathieu [...] every afternoon. Ordered by cardiology Blood-Glucose Sensor (AdTrib G7 SENSOR) sayra Apply new sensor every [...] well. Mathieu Virgen MD documented in this encounterOhio [facility]05-10-2025 NoteHNO ID: [id number] Author: JAMAL MACE, ? Service: ? Author [...] Sister Cancer Sister Co (more content not included)...[facility]05-10-2025 History of Present illness Narrative* Jamal [...] fracture of foot, unspecified laterality, initial encounter (S92.902G) - X-rays from January 12, 2025, show [...] to prevent further displacement. Attestation Recording using ITADSecurity software for draft documentation of the visit was discussed with the patient/authorized inbound call center representative; all questions welcomed and answered. Patient/authorized inbound call center representative agreed to proceed Jamal Mace DPM * Pricilla Kuhn LPN - 01/22/2025 3:23 PM EDT AMB ROOMING INTAKE FLOWSHEET DATA Pain Pain Level: 2 Pain Location: Foot-Left Description: Tenderness Duration Amount of Time: 2 Duration Units: Weeks Frequency: Intermittent Intervention/Comfort measure: Relaxation, Reposition Patient presents with: Left Foot - New, Pain, Swelling, Fracture Pricilla Kuhn LPN documented in this encounterOhio Valley Hospital05-08-2025 History of Present illness Narrative* Malik Luna [...] PATIENT PRESENTS WITH AN IMPLANTABLE OR ATTACHED INTERNET WEBMASTER: No RADIOLOGY DEPARTMENT: General X-ray: Exam(s) Completed: Lower Extremity X- Ray(s): Foot, Left PERIPHERAL IV DATA: Not applicable SIGNED BY: RT Natalie(R) January 22, 2025 4:02 PM documented in this encounterOhio Valley Hospital05-08-2025 NoteHNO ID: [id number] Author: MALIK LUNA RT(Eugenie) Service: Radiology Author Type: Technologist Type: Progress [...] PATIENT PRESENTS WITH AN IMPLANTABLE OR ATTACHED INTERNET WEBMASTER: No RADIOLOGY DEPARTMENT: General X-ray: Exam(s) Completed: Lower Extremity X-Ray(s): Foot, Left PERIPHERAL IV DATA: Not applicable SIGNED BY: RT Natalie(R) January 22, 2025 4:02 [facility]05-08-2025 Instructions* Patient Instructions* Jamal Mace - [...] decreased vibratory sensation noted. documented in this encounterOhio Valley Hospital05-08-2025 NoteHNO ID: [id number] Author: PRICILLA KUHN LPN Service: ? Author Type: LICENSED NURSE Type: Progress Notes Filed: 01/24/2025 07:08 Note Text: AMB ROOMING INTAKE FLOWSHEET DATA Pain Pain Level: 2 Pain Location: Foot-Left Description: Tenderness Duration Amount of Time: 2 Duration Units: Weeks Frequency: Intermittent Intervention/Comfort measure: Relaxation, Reposition Patient presents with: Left Foot - New, Pain, Swelling, Fracture [facility] Telephone encounter Note* Telephone Encounter - Liyah Monroy RN - 01/22/2025 8:17 AM EDT Jacki with [facility] called in and need the diagnosis the provider put on the CBC for the pathologistinterpretation. I let her know it was : Leukocytosis, unspecified type [D72.829] Liyah Mornoy RN [facility]05-08-2025 Miscellaneous Notes* Telephone Encounter - Liyah Monroy RN - 01/22/2025 8:17 AM EDT Jacki with [facility] called in and need the diagnosis the provider put on the CBC for the pathologistinterpretation. I let her know it was : Leukocytosis, unspecified type [D72.829] Liyah Monroy RN documented in this encounterOhio Valley Hospital05-07-2025 Evaluation note* Diagnosis Onset Date Resolution Status [...] sleep apnea acute J monika 2024 9:06am Restrictive lung disease acute April 08, 2025 9:06am Shortness of breath on exertion acut e April 08, 2025 9:06am [facility] Work Phone: 1(566) 713-266705-07-2025 Evaluation note* Diagnosis Onset Date Resolution Status [...] 08 9:06am Obesity (BMI 30-39.9) acute Louis 2024 9:06am Obstructive sleep apnea acute J monika 2024 9:06am Restrictive lung disease acute April 08, 2025 9:06am Shortness of breath on exertion acut e April 08, 2025 9:06am Elevated troponin acute April 29, 2025 7:37pm History of CAD (coronary art andrey disease) acute April 29 7:37pm Medical non-compliance acute Au liz 2024 7:37pm Syncope acute April 29, 2 025 7:37pm Paroxysmal atrial fibrillation chron ic April 29, 2025 7:37pm [facility] Work Phone: 1(729) 988-159405-02-2025 Telephone encounter Note* Telephone Encounter - Lulu Walls MA - 01/16/2025 3:35 PM EDT Patients daughter came into office and picked up hard Rx for post op shoe. Lulu Walls MA [facility]05-02-2025 Miscellaneous Notes* Telephone Encounter - Lulu [...] and ask. Please call and advise. Liyah Monroy RN * Telephone Encounter - Mathieu Virgen [...] a post op shoe. documented in this encounterOhio Valley Hospital05-01-2025 Telephone encounter Note * Telephone Encounter - Mathieu Virgen MD - 01/15/2025 2:13 PM EDT See below. Already wrote for post op shoe that can be obtained here or elsewhere. Script is on thisnote. In addition, she said earlier she had a boot at home. ??? [facility]05-01-2025 Telephone encounter Note* Telephone Encounter - [...] and ask. Please call and advise. Liyah Monroy RN [facility]05-01-2025 Telephone encounter Note* Telephone Encounter - Mathieu Virgen MD - 01/15/2025 12:04 PM EDT Let her know fractures of this type need followed by a specialist to ensure they heal correctly. [facility]05-01-2025 Telephone encounter Note* Telephone Encounter - Reanna Cloud - 01/15/2025 8:42 AM EDT Spoke with daughter to schedule podiatry appointments but she has questions re: what the podiatristwould do. Transferred to [facility] for assistance. [facility]04-29-2025 Telephone encounter Note* Telephone Encounter - Reanna Cloud - 01/13/2025 8:28 AM EDT Attempted to contact daughter, Farida, but no answer and voicemail full. Should she call back, please schedule podiatry consult. [facility]04-29-2025 Telephone encounter Note* Telephone Encounter - Lulu Walls MA - 01/13/2025 8:06 AM EDT Spoke with both patient and his daughter Farida. Informed of result. Farida states patient already has a boot at home he can wear. Sending to schedulers for Podiatry consult. Lulu Walls MA T [facility]04-29-2025 Miscellaneous Notes* Telephone Encounter - Julianna [...] 13, 2025 7:03 AM documented in this encounterOhio Valley Hospital04-29-2025 Telephone encounter Note * Telephone Encounter [...] Lynn LPN January 13, 2025 7:03 AM [facility]04-28-2025 Telephone encounter Note* Telephone Encounter - Mathieu Virgen MD - 01/12/2025 7:30 PM EDT Shows a fracture in his foot. See if can get into podiatry. See if we can get him in a post op shoe. [facility]04-28-20[facility] History of Present illness Narrative* Malik [...] PATIENT PRESENTS WITH AN IMPLANTABLE OR ATTACHED INTERNET WEBMASTER: No RADIOLOGY DEPARTMENT: General X-ray: Exam(s) Completed: Lower Extremity X- Ray(s): Foot, Left PERIPHERAL IV DATA: Not applicable SIGNED BY: RT Natalie(Eugenie) January 12, 2025 5:23 PM documented in this encounterOhio Valley Hospital04-28-2025 NoteHNO ID: [id number] Author: MALIK LUNA RT (R) Service: Radiology Author Type: Technologist Type: Progress [...] PATIENT PRESENTS WITH AN IMPLANTABLE OR ATTACHED INTERNET WEBMASTER: No RADIOLOGY DEPARTMENT: General X-ray: Exam(s) Completed: Lower Extremity X-Ray(s): Foot, Left PERIPHERAL IV DATA: Not applicable SIGNED BY: RT Natalie(Eugenie) January 12, 2025 5:23 [facility]04-28-2025 NoteHNO ID: [id number] Author: MATHIEU VIRGEN MD Service: ? Author [...] Reviewed current medications, allergie (more content not included)...[facility]04-28-2025 History of Present illness Narrative* Mathieu Virgen [...] every afternoon. Ordered by cardiology Blood-Glucose Sensor (AdTrib G7 SENSOR) sayra Apply new sensor every [...] LEFT Mathieu Virgen MD documented in this encounterOhio Valley Hospital03-27-2025 Evaluation note* Diagnosis Onset Date Resolution [...] fibrillation chron ic January 26, 2025 9:38am [facility] Work Phone: 1(617) 513-731903-27-2025 Evaluation note* Diagnosis Onset Date Resolution Status [...] exertion acut e April 08, 2025 9:06am [facility] Work Phone: 1(979) 923-854403-20-2025 Telephone encounter Note* Telephone Encounter - Tonai Ellis LPN - 12/04/2024 4:20 PM EDT Pt and caregiver notified via [facility] [employer] [facility]03-20-2025 Miscellaneous Notes* Telephone Encounter - Tonia Ellis LPN - 12/04/2024 4:20 PM EDT Pt and caregiver notified via [employer] * Telephone Encounter - Tonia Ellis LPN - 12/04/2024 11:51 AM EDT Rec'd and in scanned documents. Pharmacy notified. * Telephone Encounter - Reanna Brannon RN - 12/04/2024 11:17 AM EDT Medardo from [employer] calls and reports that patient's medication is approved until 09/06/2025. CaseNumber: [id number] Medardo is faxing over approval letter. Reanna Brannon RN * Telephone Encounter - Aly Marcial MA - 12/03/2024 5:55 PM EDT Received PA from pharmacy for Fiasp Flextouch. Tried to complete through covermymeds but was instructed to call [employer] at . Spoke to [facility] who will submit info to pharmacy for PA. Aly Marcial MA documented in this encounterOhio Valley Hospital03-20-2025 Telephone encounter Note * Telephone Encounter - Tonia Ellis LPN - 12/04/2024 11:51 AM EDT Rec'd and in scanned documents. Pharmacy notified. [facility]03-20-2025 Telephone encounter Note* Telephone Encounter - Reanna Brannon RN - 12/04/2024 11:17 AM EDT Medardo from [employer] calls and reports that patient's medication is approved until 09/06/2025. CaseNumber: [id number] [employer] is faxing over approval letter. Reanna Brannon RN [facility]03-19-2025 Telephone encounter Note* Telephone Encounter - Aly Marcial MA - 12/03/2024 5:55 PM EDT Received PA from pharmacy for Fiasp Flextouch. Tried to complete through covermymeds but was instructed to call [employer] at . Spoke to [facility] who will submit info to pharmacy for PA. Aly Marcial MA [facility]03-18-2025 NoteHNO ID: [id number] Author: MATHIEU VIRGEN MD Service: ? Author [...] up at 12. Has been following with [facility]. Seeing pulmonary. Uro: follows with [...] Getting through [facility] insulin glargine (BASAGLAR KWIKPEN U-100 [...] mouth every 12 hours. Prescribed by outside embroiderer hand No current facility-administered medications for this visit. [...] and laser of bladder (more content not included)...[facility]03-18-2025 History of Present illness Narrative* Mathieu Virgen MD - 12/02/2024 3:36 PM EDT Patient presents with: Follow Up HPI: Patient presents today for office visit for medication reconciliation per insurance. Labs done. Reviewed overall ar stable. His bmp is stable with gfr of 62. A1c is 7.0. lipids are good. White count is slightly up at 12. Has been following with [facility]. Seeing pulmonary. Uro: follows with [...] mouth every 12 hours. Prescribed by outside embroiderer hand No current facility-administered medications for this visit. [...] 1. Acute diastolic CHF (congestive heart failure) ([facility]) - ICD9: 428.31, 428.0, ICD10: I50.31 (primary diagnosis) - no signs of overload. Overall is well compensated. Follow with cardiolgy. Continue current meds. 2. Psoriatic arthritis ([facility]) - ICD9: 696.0, ICD10: L40.50 - stable. 3. Schizophrenia, chronic condition ([facility]) - ICD9: 295.62, ICD10: F20.9 - doing well. No complaints. 4. 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 Coming on . Await appt [facility]03-15-2025 Miscellaneous Notes* Telephone Encounter - Mathieu Virgen MD - 11/29/2024 9:18 AM EDT Reviewed. Coming on . Await appt * Telephone Encounter - Miley Pemberton MA - 11/28/2024 4:55 PM EDT Pt had blood work done. View External Labs - Chemistry [ID [id number]] View External Labs - Miscellaneous Lab [ID [id number]] View External Labs - Chemistry [ID [id number]] Miley Pemberton MA documented in this encounterOhio Valley Hospital03-14-2025 Telephone encounter Note * Telephone Encounter - Miley Pemberton MA - 11/28/2024 4:55 PM EDT Pt had blood work done. View External Labs - Chemistry [ID [id number]] View External Labs - Miscellaneous Lab [ID [id number]] View External Labs - Chemistry [ID [id number]] Miley Pemberton MA [facility]03-13-2025 Telephone encounter Note* Telephone Encounter - Jaylene Henley LPN - 11/27/2024 11:40 AM EDT Left message for Farida that lab orders have been placed. [facility]03-13-2025 Miscellaneous Notes* Telephone Encounter - Jaylene [...] Please assist. Reanna Cloud documented in this encounterOhio Valley Hospital03-13-2025 Telephone encounter Note * Telephone Encounter - Mathieu Virgen MD - 11/27/2024 11:37 AM EDT ordered [facility]03-13-2025 Telephone encounter Note* Telephone Encounter - Jaylene Henley LPN - 11/27/2024 11:30 AM EDT Labs pending to review and file. [facility]03-13-2025 Telephone encounter Note* Telephone Encounter - Reanna Cloud - 11/27/2024 9:52 AM EDT Patient and daughter are here for labs and MyChart is stating that the patinet is due for an Urine Albumin:Creatinine Ration, A1C and LDL Cholesterol but those orders are not in the patient's chart. Patient/daughter want them done today while they are here. Please assist. Reanna Cloud [facility]03-12-2025 Telephone encounter Note* Telephone Encounter - Jaylene Henley LPN - 11/26/2024 5:17 PM EDT Left detailed message on personalized voicemail. [facility]03-12-2025 Miscellaneous Notes* Telephone Encounter - Jaylene [...] if ok [facility] daughter needs called with information documented in this encounterOhio Valley Hospital03-12-2025 Telephone encounter Note * Telephone Encounter - Mathieu Virgen MD - 11/26/2024 5:07 PM EDT I am assuming he is taking it once a day. Rx sent [facility]03-12-2025 Telephone encounter Note* Telephone Encounter - Tierra Crawford, NILDA - 11/26/2024 3:58 PM EDT patient daughter is calling in stating that Dr Daley left the office today without filling patients finasteride. daughter is requesting that pcp fill the medication for patient. please review and advise. if ok rx [facility] daughter needs called with information [facility]03-10-2025 Telephone encounter Note* Telephone Encounter - Janet King MA - 11/24/2024 10:44 AM EDT Scheduled 12/02/24 [facility]03-10-2025 Miscellaneous Notes* Telephone Encounter - Janet [...] - 11/12/2024 2:31 PM EST [facility] patient daughter told her [...] of this. Please advise documented in this encounterOhio Valley Hospital03-10-2025 Telephone encounter Note * Telephone Encounter - Janet King MA - 11/24/2024 10:16 AM EDT Next visit 12/02/24 [facility]03-10-2025 Miscellaneous Notes* Telephone Encounter - Janet King MA - 11/24/2024 10:16 AM EDT Next visit 12/02/24 * Telephone Encounter - Nisha Wilson - 11/24/2024 9:33 AM EDT Patient's daughter calling asking for an medication: dilTIAZem CD (CARDIZEM CD, CARTIA XT) 120 mg 24 hr capsule () Patient last seen 10/31/23 Future visit scheduled: yes PHARMACY: [facility]. documented in this encounterOhio Valley Hospital03-10-2025 Telephone encounter Note * Telephone Encounter - Nisha Wilson - 11/24/2024 9:33 AM EDT Patient's daughter calling asking for an medication: dilTIAZem CD (CARDIZEM CD, CARTIA XT) 120 mg 24 hr capsule () Patient last seen 10/31/23 Future visit scheduled: yes PHARMACY: [facility]02-27-2025 Telephone encounter Note* Telephone Encounter - Lulu Walls MA - 11/13/2024 2:46 PM EST Message left for daughter Farida to call back to schedule sooner appointment. Lulu Walls MA [facility]02-27-2025 Telephone encounter Note* Telephone Encounter - Marilin Stein MA - 11/13/2024 12:27 PM EST Please see message from pt's Daughter and advise if willing to order labs. Marilin Stein MA [facility]02-27-2025 Miscellaneous Notes* Telephone Encounter - Marilin Stein MA - 11/13/2024 12:27 PM EST Please see message from pt's Daughter and advise if willing to order labs. Marilin Stein MA documented in this encounterOhio Valley Hospital02-26-2025 Telephone encounter Note * Telephone Encounter - Mathieu Virgen MD - 11/12/2024 4:52 PM EST See if we can get him in sooner. [facility]02-26-2025 Telephone encounter Note* Telephone Encounter - Lulu Walls MA - 11/12/2024 4:50 PM EST Has an appointment 12/19/24. Is that out too far? [facility] Telephone encounter Note* Telephone Encounter - [...] into see me in a few weeks [facility]02-26-2025 Telephone encounter Note* Telephone Encounter - [...] says with all of this. Please advise [facility]02-14-2025 NoteHNO ID: [id number] Author: SUKH HALL APRN.CYBER SECURITY SYSTEMS ENGINEER Service: ? Author Type: Nurse Practitioner Type: [...] every afternoon. Ordered by cardiology Blood-Glucose Sensor ([employer] G7 SENSOR) sayra Apply new sensor every [...] day. Blood-Glucose Meter,Continuous (FREESTYLE MARIELLE 3 READER) [facility] Use to check blood sugar at least [...] mouth every 12 hours. Prescribed by outside embroiderer hand No current facility-admin (more content not included)...[facility]02-14-2025 History of Present illness Narrative* Sukh Hall APRN.CYBER SECURITY SYSTEMS ENGINEER - 10/31/2024 2:44 PM EST Chief Complaint [...] day. Blood-Glucose Meter,Continuous (FREESTYLE MARIELLE 3 READER) [facility] Use to check blood sugar at least [...] mouth every 12 hours. Prescribed by outside embroiderer hand No current facility-administered medications on file prior [...] Vaccine(1 of 2) due on 06/20/2025 Covid-19 Vaccine(1 - ) due on 06/20/2025 HbA1C due on 12/09/2024 [...] per day, discussed with Sergey Carreon at [facility]. Has follow up with Dr. Bailey aguilar. 4. Systolic congestive heart failure, unspecified HF chronicity (HCC) - ICD9: 428.20, 428.0, ICD10:I50.20 - Continue current medications - Encouraged sodium restriction - Encouraged daily weights Patient instructed if he develops swelling, weight gain or SOB to follow up with [facility] for guidance. Sukh Hall APRN.CYBER SECURITY SYSTEMS ENGINEER documented in this encounterOhio Valley Hospital02-14-2025 Telephone encounter Note * Telephone Encounter [...] waiting for a new C-pap machine from [facility]. (Nisha is calling them to ask about the machine as she is aware that we are not able to do anything about that). Patient wants to discuss the fluid restriction. Nisha aware that if he is dehydrated and needs fluids he should go to the ER but she said he is not to that point. Appointment remains. Jackelin Tinajero RN [facility]02-14-2025 Miscellaneous Notes* Telephone Encounter - Jackelin [...] waiting for a new C-pap machine from [facility]. (Nisha is calling them to ask [...] remains. Jackelin Tinajero RN documented in this encounterOhio Valley Hospital01-30-2025 Telephone encounter Note * Telephone Encounter - Lulu Walls MA - 10/16/2024 11:52 AM EST We do not have samples. Spoke with daughter Farida and informed her of this. She is requesting a Rx for the Dexcom sensors (G7) to the [facility] in [place] while waiting for the company to ship more. Patient has finger stick meter at home but daughter states this is not super convenient for them to check this way. Lulu Walls MA [facility]01-30-2025 Miscellaneous Notes* Telephone Encounter - Lulu Walls MA - 10/16/2024 11:52 AM EST We do not have samples. Spoke with daughter Farida and informed her of this. She is requesting a Rx for the Dexcom sensors (G7) to the [facility] in [place] while waiting for the company to ship [...] get one. Please phone Farida with reply: [phone] documented in this encounterOhio Valley Hospital01-30-2025 Telephone encounter Note * Telephone Encounter - Mathieu Virgen MD - 10/16/2024 10:34 AM EST Do we have anything like that available? Might need to buy one if not [facility]01-30-2025 Telephone encounter Note* Telephone Encounter - Osvaldo Regalado RN - 10/16/2024 10:31 AM EST Daughter Farida reports patient had 3 Dexcom G 7 sensors that malfunctioned. They notified the company, but it takes 5-7 days to receive new one. Asking if pcp has samples of these sensors or knows how they can get one. Please phone Farida with reply: [phone] [facility]01-23-2025 Telephone encounter Note* Telephone Encounter - Julianna Hood APRN.CNP - 10/09/2024 8:43 AM EST The following approved medication requests have been transmitted electronically. Requested Prescriptions Pending Prescriptions Disp Refills metFORMIN ER (GLUCOPHAGE XR) 500 mg 24 hr tablet 360 tablet 3 Sig: Take 2 tablets by mouth two times a day before meals. Julianna Hood APRN.CNP [facility]01-23-2025 Miscellaneous Notes* Telephone Encounter - Julianna Hood APRN.CNP - 10/09/2024 8:43 AM EST The following approved medication requests have been transmitted electronically. Requested Prescriptions Pending Prescriptions Disp Refills metFORMIN ER (GLUCOPHAGE XR) 500 mg 24 hr tablet 360 tablet 3 Sig: Take 2 tablets by mouth two times a day before meals. Julainna Hood APRN.CNP * Telephone Encounter - Kennedi [...] 09, 2024 7:52 AM documented in this encounterOhio Valley Hospital01-23-2025 Telephone encounter Note * Telephone Encounter [...] Frey LPN October 09, 2024 7:52 AM [facility]01-07-2025 NoteHNO ID: [id number] Author: DENISHA SHEPARD APRN.CYBER SECURITY SYSTEMS ENGINEER Service: ? Author Type: Nurse Practitioner Type: Progress Notes Filed: 09/23/2024 18:18 Note Text: This is a 79 year old male who presents today with: Patient presents with: ER F/U: [facility] ER 09/20/24 dx:CP HISTORY OF PRESENT ILLNESS: Faisal Alarcon is a 79 year old male. Patient presents with: ER F/U: [facility] ER 09/20/24 dx:CP Patient presents today for emergency room follow-up. He went to the emergency room on 09/20/2024 with complaints of chest discomfort. He had been given nitroglycerin by EMS that did improve his pain. He had negative cardiac enzymes and stable lab work. There was no STEMI. The emergency room did consult patient's embroiderer hand, and it was recommended to start patient [...] day. Blood-Glucose Meter,Continuous (FREESTYLE MARIELLE 3 READER) [facility] Use to check blood sugar at least [...] mouth every 12 hours. Prescribed by outside embroiderer hand insulin glargine (BASAGLAR KWIKPEN U-100 INSULIN) 100 [...] daily. Dx: 250.00. Insul (more content not included)...[facility] 09-23-2024 History of Present illness Narrative* Denisha Shepard, PAIGE.CYBER SECURITY SYSTEMS ENGINEER - 09/23/2024 6:10 PM EST This is a 79 year old male who presents today with: Patient presents with: ER F/U: [facility] ER 09/20/24 dx:CP HISTORY OF PRESENT ILLNESS: Faisal Alarcon is a 79 year old male. Patient presents with: ER F/U: [facility] ER 09/20/24 dx:CP Patient presents today for emergency room follow-up. He went to the emergency room on 09/20/2024 with complaints of chest discomfort. He had been given nitroglycerin by EMS that did improve his pain. He had negative cardiac enzymes and stable lab work. There was no STEMI. The emergency room did consult patient's embroiderer hand, and it was recommended to start patient [...] day. Blood-Glucose Meter,Continuous (FREESTYLE MARIELLE 3 READER) [facility] Use to check blood sugar at least [...] mouth every 12 hours. Prescribed by outside embroiderer hand insulin glargine (BASAGLAR KWIKPEN U-100 INSULIN) 100 [...] as needed for worsening/no improvement. Denisha Shepard APRN.CYBER SECURITY SYSTEMS ENGINEER documented in this encounterOhio [facility]01-07-[facility]25 Telephone encounter Note * Telephone Encounter - Denisha Shepard APRN.CNP - 09/23/2024 5:14 PM EST See office notes. Has appt w/ cardiology today. Denisha Shepard APRN.CNP [facility]01-07-2025 Miscellaneous Notes* Telephone Encounter - Denisha Shepard APRN.CNP - 09/23/2024 5:14 PM EST See office notes. Has appt w/ cardiology today. Denisha Shepard APRN.CNP * Telephone Encounter - Liyah Monroy RN - 09/22/2024 12:49 PM EST Pts daughter called in and reports her father was in [facility] ER 09/20/24. She reports Pt was having chestpain and that is why he went to the ER. Pts daughter states they didn't find anything wrong with him, everything was the same as before. Pt scheduled with Denisha Shepard HOT PACKER 09/23/24 at 240 pm. She reports he father has been feeling lightheaded and dizzy, and she thinks it's because on 09/13/24 his [employer] [address] Mechanic Dr Ponce double his dose of Lasix. [...] few weeks from now. documented in this encounterOhio Valley Hospital01-06-2025 Telephone encounter Note * Telephone Encounter - Liyah Monroy RN - 09/22/2024 12:49 PM EST Pts daughter called in and reports her father was in [facility] ER 09/20/24. She reports Pt was having chestpain and that is why he went to the ER. Pts daughter states they didn't find anything wrong with him, everything was the same as before. Pt scheduled with Denisha Shepard HOT PACKER 09/23/24 at 240 pm. She reports he father has been feeling lightheaded and dizzy, and she thinks it's because on 09/13/24 his [employer] [address] Mechanic Dr Ponce double his dose of Lasix. [...] is out a few weeks from now. [facility]12-[facility] Telephone encounter Note* Telephone Encounter - Angelina Bliss RN - 09/02/2024 3:51 PM EST Patient's daughter Farida, returned call and given provider's message below. Angelina Bliss RN [facility]12-17-2024 Miscellaneous Notes* Telephone Encounter - Angelina [...] symptoms that daughter knows of. Protocols used: Ohzxtcmownza-NQNWQ-TB documented in this encounterOhio Valley Hospital12-17-2024 Telephone encounter Note * Telephone Encounter - Janet King MA - 09/02/2024 3:18 PM EST Left message for patient to return call and speak to triage nurse Janet King Ma [facility]12-17-2024 Telephone encounter Note* Telephone Encounter - Mathieu Virgen MD - 09/02/2024 1:07 PM EST If any pain, nausea or vomiting or distention to er for disimpaction if it is the rectum and can't use a suppository or enema. [facility]12-17-[facility] Telephone encounter Note* Telephone Encounter - [...] symptoms that daughter knows of. Protocols used: Peixermpxbom-OEFRX-TK [facility]12-09-2024 Telephone encounter Note* Telephone Encounter - Kennedi Frey LPN - 08/25/2024 8:12 AM EST Spoke with Farida daughter of pt and message below given. Farida verbalizes understanding. Kennedi Frey LPN [facility]12-09-2024 Miscellaneous Notes* Telephone Encounter - Kennedi Frey LPN - 08/25/2024 8:12 AM EST Spoke with Farida daughter of pt and message below given. [...] 22, 2024 11:53 AM documented in this encounterOhio Valley Hospital12-06-2024 Telephone encounter Note * Telephone Encounter - Janet King MA - 08/22/2024 1:35 PM EST Left message for patient to return call. Janet King Ma [facility]12-06-20[facility] Telephone encounter Note* Telephone Encounter - Julianna Hood APRN.CNP - 08/22/2024 12:56 PM EST The following approved medication requests have been transmitted electronically. Requested Prescriptions Pending Prescriptions Disp Refills furosemide (LASIX) 40 mg tablet 90 tablet 1 Sig: Take 1 tablet by mouth once daily. Julianna Hood APRN.CNP [facility]12-06-2024 Miscellaneous Notes* Telephone Encounter - Julianna [...] 22, 2024 11:52 AM documented in this encounterOhio Valley Hospital12-06-2024 Telephone encounter Note * Telephone Encounter - Julianna Hood APRN.CNP - 08/22/2024 12:55 PM EST Since patient has slightly weakened kidneys, I will replace simvastatin with a atorvastatin 20 mg daily. It is a little safer on the kidneys. [facility]12-06-20[facility] Telephone encounter Note* Telephone Encounter - Christian [...] Bob LPN August 22, 2024 11:53 AM [facility]12-06-2024 Telephone encounter Note* Telephone Encounter - Christian [...] Bob LPN August 22, 2024 11:52 AM [facility]12-02-2024 Telephone encounter Note* Telephone Encounter - Jaylene Henley LPN - 08/18/2024 1:14 PM EST We did and faxed it back. Will fax again today. [facility]12-02-[facility] Miscellaneous Notes* Telephone Encounter - Jaylene Henley LPN - 08/18/2024 1:14 PM EST We did and faxed it back. Will fax again today. * Telephone Encounter - Kristina Higuera LPN - 08/18/2024 12:55 PM EST Kate with [employer] calls to check on status of order form that was faxed last week for Dexcom G7. Kate is asking if office did not receive order form if office would call back and let them know. Kristina Higuera LPN documented in this encounterOhio Valley Hospital12-02-2024 Telephone encounter Note * Telephone Encounter - Kristina Higuera LPN - 08/18/2024 12:55 PM EST Kate with [employer] calls to check on status of order form that was faxed last week for Dexcom G7. Kate is asking if office did not receive order form if office would call back and let them know. Kristina Higuera LPN [facility]11-29-2024 Telephone encounter Note* Telephone Encounter - Angelina Bliss RN - 08/15/2024 8:59 AM EST Summer calling with [employer], the company assisting patient with Dexcom G7 CGM. Requesting recent OV note to further proceed with pt's CGM order. Faxed as requested to [phone]. Angelina Bliss RN [facility]11-29-2024 Miscellaneous Notes* Telephone Encounter - Angelina Bliss RN - 08/15/2024 8:59 AM EST Summer calling with [employer], the [employer] assisting patient with Dexcom G7 CGM. Requesting recent OV note to further proceed with pt's CGM order. Faxed as requested to [phone]. Angelina Bliss RN documented in this encounterOhio Valley Hospital11-27-2024 Evaluation note* Diagnosis Onset Date Resolution [...] fibrillation chron ic September 23, 2024 3:25pm [facility] Work Phone: 1(889) 796-874011-25-2024 Telephone encounter Note* Telephone Encounter - Mathieu Virgen MD - 08/11/2024 1:42 PM EST agree [facility]-25[facility] Miscellaneous Notes* Telephone Encounter - Mathieu Virgen MD - 08/11/2024 1:42 PM EST agree * Telephone Encounter - Tammy Davies LPN - 08/11/2024 1:05 PM EST Patient daughter Farida raymond father is very [...] sent to his PCP. documented in this encounterOhio Valley Hospital11-25-2024 Telephone encounter Note * Telephone Encounter - Tammy Davies LPN - 08/11/2024 1:05 PM EST Patient daughter Farida raymond father is very [...] note is being sent to his PCP. [facility]-19-[facility] Telephone encounter Note* Telephone Encounter - Lulu Walls MA - 08/05/2024 5:00 PM EST Order faxed to [facility] and daughterFarida informed. Lulu Walls MA [facility]11-19-2024 Miscellaneous Notes* Telephone Encounter - Lulu Walls MA - 08/05/2024 5:00 PM EST Order faxed to [employer] and daughterFarida informed. Lulu Walls MA * Telephone Encounter - Mathieu Virgen MD - 08/05/2024 3:52 PM EST printed * Telephone Encounter - Angelina Bliss RN - 08/05/2024 3:12 PM EST This triage nurse spoke with patient's daughter [employer] is for 2 liters of O2 PRN exertion. Daughter asking if Dr. Virgen can send new order to [employer] for 2 liters Oxygen continuous? Daughter states pt prefers to continue to use the tanks and does not want an electric concentrator, if possible. Daughter states patient does not have any worsening symptoms since recent OV on 07/29/24 and she will update PCP if pt does. Please call daughter Farida when order has been sent to [employer]. Thank you. documented in this encounterOhio Valley Hospital11-19-2024 Telephone encounter Note * Telephone Encounter - Mathieu Virgen MD - 08/05/2024 3:52 PM EST printed [facility] Telephone encounter Note* Telephone Encounter - [...] Farida when order has been [place] [facility] Thank you. [facility] Telephone encounter Note* Telephone Encounter - Marilin Stein MA - 08/05/2024 2:53 PM EST Watch for Scooter paperwork for pt from [employer]. Marilin Stein MA [facility]11-19-2024 Miscellaneous Notes* Telephone Encounter - Marilin Stein MA - 08/05/2024 2:53 PM EST Watch for Scooter paperwork for pt from [employer]. Marilin Stein MA documented in this encounterOhio Valley Hospital11-15-2024 Telephone encounter Note * Telephone Encounter [...] Abdi LPN August 01, 2024 12:54 PM [facility]-15-2024 Miscellaneous Notes* Telephone Encounter - Cristina [...] 01, 2024 12:54 PM documented in this encounterOhio Valley Hospital11-15-2024 Telephone encounter Note * Telephone Encounter - Janet King MA - 08/01/2024 11:19 AM EST Daughter, Farida, notified of results. Advised her of provider message to keep eye out for tarry, black stools or bright, red blood. She is agreeable with plan. Patient has follow up scheduled in October. Janet King MA August 01, 2024 11:26 AM [facility] Miscellaneous Notes* Telephone Encounter - Janet King MA - 08/01/2024 11:19 AM EST Daughter, Farida, notified of results. Advised her of provider message to keep eye out for tarry, black stools or bright, red blood. She is agreeable with plan. Patient has follow up scheduled in October. Janet King MA August 01, 2024 11:26 AM * Telephone Encounter - Julianna Hood APRN.CAESAR - 07/31/2024 5:29 PM EST Lab work [...] Stop any magnesium supplements. documented in this encounterOhio Valley Hospital11-14-2024 Telephone encounter Note * Telephone Encounter [...] magnesium is high. Stop any magnesium supplements. [facility]11-12-2024 Instructions* Patient Instructions* Julianna Hood APRN.CNP - 07/29/2024 12:10 PM EST 1) Check labs 2) Start OTC B12 1,000 mcg daily 3) Follow up in 3 months documented in this encounterOhio Valley Hospital11-12-2024 History of Present illness Narrative* Julianna Hood APRN.CNP - 07/29/2024 11:36 AM EST This is [...] pressure. No nausea. No constipation. Admitted to [facility] w/ pulmonary edeam, hypoxia Echo showed [...] day. Blood-Glucose Meter,Continuous (FREESTYLE MARIELLE 3 READER) [facility] Use to check blood sugar at least [...] mouth every 12 hours. Prescribed by outside embroiderer hand insulin glargine (BASAGLAR KWIKPEN U-100 INSULIN) 100 [...] as needed for worsening/no improvement. Julianna Hood APRN.CNP documented in this encounterOhio Valley Hospital11-08-2024 [facility]11-08-2024 [facility]10-23-2024 Telephone encounter Note* Telephone Encounter - Jaylene [...] Henley LPN July 09, 2024 10:38 AM [facility]10-23-2024 Miscellaneous Notes* Telephone Encounter - Jaylene [...] 09, 2024 10:38 AM documented in this encounterOhio Valley Hospital10-08-2024 Telephone encounter Note * Telephone Encounter - Osvaldo Regalado RN - 06/24/2024 4:23 PM EDT Daughter returned call and given provider's message below with verbalized understanding. Daughter agreeable. Scheduled lab appt in 1 mth. [facility]-08-2024 Miscellaneous Notes* Telephone Encounter - Osvaldo [...] D level is very low. Please consider ebdb-ddg-smujn vitamin D3-2000 units daily. Your white blood count is improving but now developing some mild anemia. Please recheck CBC in a month again. documented in this encounterOhio Valley Hospital10-08-2024 Telephone encounter Note * Telephone Encounter - Miley Pemberton MA - 06/24/2024 9:50 AM EDT Tried to reach pt, VM full, unable to leave message or call back number. mobile[employer] message sent to pt, asking them to call back for results. Miley Pemberton MA [facility]10-07-2024 Instructions* Patient Instructions* Abril Duval APRN.CNP - 06/23/2024 3:20 PM EDT Let me know if you would like to schedule a sleep study. We can have it done at [facility] or [facility]. documented in this encounterOhio Valley Hospital10-07-2024 History of Present illness Narrative* Abril Duval APRN.CNP - 06/23/2024 2:30 PM EDT Images from the original note were not included. [facility] New Patient Evaluation PATIENT NAME: Faisal Alarcon DATE OF SERVICE: June 22, 2024 CONSULTING PROVIDER: Osvaldo Travis [id number] [facility] [id number] REASON FOR CONSULT: Osvaldo Travis sends the [...] day. Blood-Glucose Meter,Continuous (FREESTYLE MARIELLE 3 READER) [facility] Use to check blood sugar at least [...] mouth every 12 hours. Prescribed by outside embroiderer hand Review of Systems Cardiovascular: Negative for palpitations. [...] untreated CJ including but not limited to SD/HF/CVA, testing for CJ, treatment with PAP therapy. Not a candidate for OAT since he is edentulous. Briefly discussed hypoglossal nerve stimulation ([employer]). We discussed different mask options for PAP. He will consider a PSG, could schedule at [facility] or [facility], daughter Farida uses [employer] for him, she will let me know. Arbil Duval APRN.CAESAR documented in this encounterOhio Valley Hospital10-07-2024 Telephone encounter Note * Telephone Encounter - Kennedi Frey LPN - 06/23/2024 2:07 PM EDT Attempted to reach pt by phone without success. Mailbox is full. Try later. Kennedi Frey LPN [facility] Telephone encounter Note* Telephone Encounter - Kennedi Frey LPN - 06/23/2024 2:07 PM EDT ----- Message from Julianna Hood sent at 06/23/2024 1:51 PM EDT ----- Your vitamin D level is very low. Please consider agee-onr-wyumu vitamin D3-2000 units daily. Your white blood count is improving but now developing some mild anemia. Please recheck CBC in a month again. [facility]-04[facility] History of Present illness Narrative* Mathieu [...] Free style marielle script needs sent through [employer] He is wanting us to send his scooter request to [facility]. They had requested a letter in thepast [...] mouth every 12 hours. Prescribed by outside embroiderer hand No current facility-administered medications for this visit. [...] NOS Mathieu Virgen MD documented in this encounterOhio Valley Hospital10-04-2024 Telephone encounter Note * Telephone Encounter - Renetta Gant MA - 06/20/2024 1:34 PM EDT Patient phones requesting refills as follows: Requested Prescriptions Pending Prescriptions Disp Refills ELIQUIS 5 mg tab(s) 60 tablet 1 Sig: Take 1 tablet by mouth two times a day. Please review and advise. Renetta Gant MA [facility]10-04-2024 Miscellaneous Notes* Telephone Encounter - Renetta Gant MA - 06/20/2024 1:34 PM EDT Patient phones requesting refills as follows: Requested Prescriptions Pending Prescriptions Disp Refills ELIQUIS 5 mg tab(s) 60 tablet 1 Sig: Take 1 tablet by mouth two times a day. Please review and advise. Renetta Gant MA documented in this encounterOhio Valley Hospital10-04-2024 Telephone encounter Note * Telephone Encounter - Jaylene Henley LPN - 06/20/2024 11:23 AM EDT Patient has visit today. Clinical staff can follow up with daughter at visit. [facility]-04-[facility]24 Miscellaneous Notes* Telephone Encounter - Jaylene Henley LPN - 06/20/2024 11:23 AM EDT Patient has visit today. Clinical staff can follow up with daughter at visit. * Telephone Encounter - Angelina Bliss RN - 06/18/2024 4:28 PM EDT Patient's daughter Farida Beck calling and requesting to speak specifically with PCP nurse, Jaylene. This is in regard to patient's scooter and pt's insurance. Farida [phone]. Thank you. documented in this encounterOhio Valley Hospital10-02-2024 Telephone encounter Note * Telephone Encounter - Angelina Bliss RN - 06/18/2024 4:28 PM EDT Patient's daughter Farida Beck calling and requesting to speak specifically with PCP nurseJaylene. This is in regard to patient's scooter and pt's insurance. Farida [phone]. Thank you. [facility]-01-[facility] Telephone encounter Note* Telephone Encounter - Kennedi Frey LPN - 06/17/2024 9:36 AM EDT Received a call from Alison with [facility]. PH: [phone]. She reports receiving information on a scooter. Alison reports this has to go thru pt's [employer] and they will fax all information with details to [facility] to be done. I called daughter Farida and she reports they are using [employer] fax:[phone] PH: [phone] Spoke with Estela and after they received the fax they will go thru it and send forms to be filled out and once those have been returned they will send to [facility] . Information fas been faxed. Kennedi Frey LPN [facility]10-01-2024 Miscellaneous Notes* Telephone Encounter - Kennedi Frey LPN - 06/17/2024 9:36 AM EDT Received a call from Alison with [employer]. PH: [phone]. She reports receiving information on a scooter. Alison reports this has to go thru pt's [employer] and they will fax all information with details to [facility] to be done. I called daughter Farida and she reports they are using [employer] fax:[phone] PH: [phone] Spoke with Estela and after they received the fax they will go thru it and send forms to be filled out and once those have been returned they will send to [facility] . Information fas been faxed. Kennedi Frey LPN documented in this encounterOhio Valley Hospital09-30-2024 Telephone encounter Note * Telephone Encounter - Jaylene Henley LPN - 06/16/2024 4:24 PM EDT Will fax letter again as requested. [facility] Miscellaneous Notes* Telephone Encounter - Jaylene Henley LPN - 06/16/2024 4:24 PM EDT Will fax letter again as requested. documented in this encounterOhio Valley Hospital09-23-2024 Telephone encounter Note * Telephone Encounter [...] Lynn LPN June 09, 2024 8:49 AM [facility] Miscellaneous Notes* Telephone Encounter - Julianna [...] 09, 2024 8:49 AM documented in this encounterOhio Valley Hospital09-14-2024 History of Present illness Narrative* Estela Oliva APRN.CAESAR - 05/31/2024 8:57 AM EDT Patient came in with complaints of lightheadedness dizziness and weakness. Patient says he feels like he collapsed. Patient does have significant cardiac history including A-fib. At this time patientis being referred to the ER for full evaluation. Patient was okay with this care plan. Patient's caregiver will take him now. documented in this encounterOhio Valley Hospital09-14-2024 Telephone encounter Note * Telephone Encounter [...] BP, rapid pulse) Protocols used: Dizziness - Vlddfvyryopbidk-RQGJV-CT [facility]09-14-2024 Miscellaneous Notes* Telephone Encounter - Narda [...] BP, rapid pulse) Protocols used: Dizziness - Dpwlsqkreqtpmcr-EGTVA-JZ documented in this encounterOhio Valley Hospital08-19-2024 Telephone encounter Note * Telephone Encounter - [...] Bob LPN May 05, 2024 5:34 PM [facility] Miscellaneous Notes* Telephone Encounter - Christian [...] 05, 2024 5:34 PM documented in this encounterOhio Valley Hospital07-29-2024 Telephone encounter Note * Telephone Encounter [...] Bob LPN April 14, 2024 11:53 AM [facility]-29-[facility] Miscellaneous Notes* Telephone Encounter - Christian [...] 14, 2024 11:53 AM documented in this encounterOhio Valley Hospital07-26-2024 History of Present illness Narrative* Mariaelena Curry DO - 04/11/2024 5:27 PM EDT Virtualist Progress Note Triage Call I have communicated my name and active licensure. The patient's identity and physical location wereverified at the time of this visit. Either the patient or their legal inbound call center representative has been informed of the risks and benefits of -- and alternatives to -- treatment through a remote evaluation andconsents to proceed with the evaluation remotely. Triage source: Triage Call (Nurse Asphalt Tile Floor Layer, [facility] Triage, [facility] Triage, [facility] Phone Triage) Was patient downgraded (i.e. [...] his daughter is considering taking him to [facility] ER to see if he can [...] in as Primary Virtualist, Secondary Virtualist, or [facility] Telehealth provider: Secondary documented in this encounterOhio Valley Hospital07-26-2024 Telephone encounter Note * Telephone Encounter - Randi Turner RN - 04/11/2024 4:49 PM EDT Reason for Call: Patient and daughter calling with concerns of blood in urine Outcome: Recommendation to see HCP or PCP Triage within 4 hours Daughter refused ED. Stated they went to [facility] ED yesterday and they could not do a Cystoscopy. Has appointment with Urology 04/29. Recommended [facility] ED, daughter wanted to speak to provider Name of Provider contacted for further advice: Dr. Mariaelena Curry Provider's recommendation: PCP office visit Sunday or Sunday, go to ED if worsening symptoms Patient was conferenced to [facility] in Appointment Center for Sunday appointment scheduling. [...] today Protocols used: Urine - Blood In-ADULT- [facility]07-26-2024 Miscellaneous Notes* Telephone Encounter - Randi Turner RN - 04/11/2024 4:49 PM EDT Reason for Call: Patient and daughter calling with concerns of blood in urine Outcome: Recommendation to see HCP or PCP Triage within 4 hours Daughter refused ED. Stated they went to [facility] ED yesterday and they could not do a Cystoscopy. Has appointment with Urology 04/29. Recommended [facility] ED, daughter wanted to speak [...] pain today Protocols used: Urine - Blood In-ADULT-AH documented in this encounterOhio Valley Hospital07-26-2024 Telephone encounter Note * Telephone Encounter - Najma Oliva MA - 04/11/2024 8:02 AM EDT Prescription [...] by mouth two times a day. Najma Oliva MA April 11, 2024 8:02 AM [facility]07-26-[facility]24 Miscellaneous Notes* Telephone Encounter - Najma Oliva MA - 04/11/2024 8:02 AM EDT Prescription [...] by mouth two times a day. Najma Oliva MA April 11, 2024 8:02 AM documented in this encounterOhio Valley Hospital07-24-2024 History of Present illness Narrative* Andrew Guallpa APRN.CAESAR - 04/09/2024 2:29 PM EDT Images from [...] mouth every 12 hours. Prescribed by outside embroiderer hand colestipol (COLESTID) 1 gram tablet Take 1 [...] of care. This note was generated using Outside.in software. It may contain errors in wording, punctuation, or spelling. Andrew Guallpa APRN.[employer] SYSTEMS ENGINEER documented in this encounterOhio Valley Hospital07-08-2024 Telephone encounter Note * Telephone Encounter - Mathieu Virgen MD - 03/24/2024 4:59 PM EDT Reviewed venous insuffiencey and labs. His diltiazem may be contributing. Offered to see him if need be. Discussed compression hose. Keep cool and elevated. Offered vascular eval as well. Daughter's questions answered. [facility]07-08-2024 Miscellaneous Notes* Telephone Encounter - Mathieu [...] pt. Marilin Stein MA documented in this encounterOhio Valley Hospital07-08-2024 Telephone encounter Note * Telephone Encounter - Jaylene Henley LPN - 03/24/2024 4:07 PM EDT This is her response to the message that Prosper sent from his lab results on 02/28/24. [facility]07-06-2024 Telephone encounter Note* Telephone Encounter - Marilin Stein MA - 03/22/2024 8:27 AM EDT Please review message regarding pt. Marilin Stein MA [facility]07-05-2024 Telephone encounter Note* Telephone Encounter - Reanna Brannon RN - 03/21/2024 1:17 PM EDT Patient's daughter notified of results and provider's instructions. Patient daughter verbalizes understanding. Reanna Brannon RN [facility]07-05-2024 Miscellaneous Notes* Telephone Encounter - Reanna [...] pumps to reduce swelling. Telephone on 03/21/24 [facility] KNEE HI 30-40WT CONSULT TO LYMPHEDEMA THERAPY Venous incompetence (primary encounter diagnosis) Lymphedema of left leg Varicose veins of both legs with edema Prosper Patel PA-C documented in this encounterOhio Valley Hospital07-05-2024 Telephone encounter Note * Telephone Encounter - Osvaldo Regalado RN - 03/21/2024 1:05 PM EDT Left vm on daughters vm to return call to nurse for provider's message, regarding patient's US results. [facility]-05-[facility]24 Telephone encounter Note* Telephone Encounter - [...] pumps to reduce swelling. Telephone on 03/21/24 [place] KNEE HI 30-40WT CONSULT TO LYMPHEDEMA THERAPY Venous incompetence (primary encounter diagnosis) Lymphedema of left leg Varicose veins of both legs with edema Prosper Patel PA-C [facility]07-03-2024 Telephone encounter Note* Telephone Encounter - Kennedi Frey LPN - 03/19/2024 9:20 AM EDT Daughter notified with results below and report faxed to [facility]. Kennedi Frey LPN [facility]07-03-2024 Miscellaneous Notes* Telephone Encounter - Kennedi Frey LPN - 03/19/2024 9:20 AM EDT Daughter notified with results below and report faxed to [facility]. Kennedi Frey LPN * Telephone Encounter - Osvaldo Regalado RN - 03/19/2024 8:18 AM EDT Phoned patient and given provider's message below. Patient reports he is SLEETMUTE and asked this nurse to call his [...] up from 13 mmHg. He follows with [place] [facility]: please have him follow up with them in next few months and please have the echo sent there for them to review. Thanks, Prosper Travis PA-C documented in this encounterOhio Valley Hospital07-03-2024 Telephone encounter Note * Telephone Encounter - Osvaldo Regalado RN - 03/19/2024 8:18 AM EDT Phoned patient and given provider's message below. Patient reports he is SLEETMUTE and asked this nurse to call his daughter, Farida, to give her the message. Left vm on Farida's vm asking her to return call to triage nurse for provider's message. [facility]07-03-[facility]24 Telephone encounter Note* Telephone Encounter - [...] up from 13 mmHg. He follows with [place] [facility]: please have him follow up with them in next few months and please have the echo sent there for them to review. Thanks, Prosper Travis PA-C [facility]06-20-2024 Telephone encounter Note* Telephone Encounter - [...] date of : No Nasra Muñiz LPN [facility]06-20-2024 Miscellaneous Notes* Telephone Encounter - Nasra [...] No Nasra Muñiz LPN documented in this encounterOhio Valley Hospital06-13-2024 History of Present illness Narrative* Osvaldo [...] feet walking with dyspnea- not new. Sees [place] [facility], last visit 10/24/2023: Notes identified paroxysmal [...] Lymph 1.00 - 4.00 k/uL 2.31 1.59 Sandoval% % 11.1 11.1 Abs Sandoval <0.87 k/uL 1.14 (H) 1.24 (H) Eosin% [...] a day before meals. Getting through [facility] 5 Each 1 dilTIAZem CD [...] mouth every 12 hours. Prescribed by outside embroiderer hand 60 tablet 0 colestipol (COLESTID) 1 gram [...] completed. Osvaldo Travis PA-C documented in this encounterOhio Valley Hospital05-28-2024 Telephone encounter Note * Telephone Encounter - Janet King MA - 02/12/2024 5:11 PM EDT Patient's daughter was made aware of the results and verbalizes understanding. Janet King Ma [facility]05-28-2024 Miscellaneous Notes* Telephone Encounter - Janet [...] days as ordered Protocols used: No Guideline Vzkjboboq-RZQXM-WZ * Telephone Encounter - Angelian Bliss RN - 02/12/2024 8:12 AM EDT [...] advise! Angelina Bliss RN documented in this encounterOhio Valley Hospital05-28-2024 Telephone encounter Note * Telephone Encounter - Mathieu Virgen MD - 02/12/2024 4:31 PM EDT Check weight daily and call if weight goes up over three lbs in 24 hours. Call if worsening swelling or shortness of breath. His EKG is unchanged. It was read the day he was here when Prosper saw him. [facility]-28-[facility]24 Telephone encounter Note* Telephone Encounter - [...] 1. Daughter would like to inform Prosper Thaddeus that patient completed his 5 day Lasix [...] days as ordered Protocols used: No Guideline Ynmmftgfe-NQLCJ-FP [facility]05-28-2024 Telephone encounter Note* Telephone Encounter - Angelina Bliss RN - 02/12/2024 8:12 AM EDT Message left for pt's daughter Farida Beck, to call provider's office and ask for a nurse to discussMC message received on 01/11/24, regarding patient, as copied: Faisal Alarcon to [facility] My Chart Rx Pool (supporting Osvaldo Travis PA-C) 02/10/24 2:56 PM Hi Mr. Travis, After the five days of being on lasiks, dad has only lost three pounds. His ankles and feet are still swollen. So still have concern regarding this. Also, his EKG Rhythm Strip is quite concerning to me. Please advise! Angelina Bliss RN [facility]05-20-2024 Instructions* Patient Instructions* Osvaldo Travis PA-C - 02/04/2024 12:49 PM EDT Trial lasix 40mg daily x 5 days Check weight at home prior to starting Recheck weight in 5 days and report to me documented in this encounterOhio Valley Hospital05-20-2024 History of Present illness Narrative* Brenda Arrington [...] PATIENT PRESENTS WITH AN IMPLANTABLE OR ATTACHED INTERNET WEBMASTER: No RADIOLOGY DEPARTMENT: General X-ray: Exam(s) Completed: Chest X-Ray PERIPHERAL IV DATA: Not applicable SIGNED BY: RT Griselda(R) February 04, 2024 12:16 PM documented in this encounterOhio Valley Hospital05-20-2024 History of Present illness Narrative* Osvaldo [...] feet walking with dyspnea- not new. Sees [place] [facility], last visit 10/24/2023: Notes identified paroxysmal [...] times a day before meals. Getting through [facility] 5 Each 1 dilTIAZem CD [...] mouth every 12 hours. Prescribed by outside embroiderer hand 60 tablet 0 No current facility-administered medications [...] 05/18/2023, NSR 1 degree AVB, LAFB pending embroiderer hand review. ASSESSMENT/PLAN: 1. SOB (shortness of breath) - ICD9: 786.05, ICD10: R06.02 (primary diagnosis) Suspect r/t body habitus and deconditioning, chronic lung disease In no acute distress. No chest pain or evidence of DVT. EKG stable Due to sudden weight gain will trial lasix 40mg daily x 5 days with weight onb 5th day to be reported through [employer]- daughter will see this gets completed If chest pain, worsening SOB, feeling worse:go to ER Will send note to [place] [facility] for continuity of care. - COMPLETE [...] data. Osvaldo Travis PA-C documented in this encounterOhio Valley Hospital05-20-2024 Telephone encounter Note * Telephone Encounter [...] disease. 7. : N/A Protocols used: Ankle Fwufpaip-NLURO-JB, Leg Swelling and Icwzb-CYGMD-VK [facility]05-20-2024 Miscellaneous Notes* Telephone Encounter - Osvaldo [...] disease. 7. : N/A Protocols used: Ankle Fuhecnak-AIWOY-LC, Leg Swelling and Pyndv-SBKDW-IQ documented in this encounterOhio Valley Hospital05-03-2024 Telephone encounter Note * Telephone Encounter [...] Please advise. Thank you. Christian Bob LPN. [facility]05-03-2024 Miscellaneous Notes* Telephone Encounter - Christian [...] you. Christian Bob LPN. documented in this encounterOhio Valley Hospital04-24-2024 Miscellaneous Notes* Telephone Encounter - Renetta Gant MA - 01/09/2024 10:36 AM EDT Patient phones requesting refills as follows: Requested Prescriptions Pending Prescriptions Disp Refills ELIQUIS 5 mg tab(s) 60 tablet 1 Sig: Take 1 tablet by mouth two times a day. Please review and advise. Renetta Gant MA documented in this encounterOhio Valley Hospital04-24-2024 Telephone encounter Note * Telephone Encounter - Renetta Gant MA - 01/09/2024 10:36 AM EDT Patient phones requesting refills as follows: Requested Prescriptions Pending Prescriptions Disp Refills ELIQUIS 5 mg tab(s) 60 tablet 1 Sig: Take 1 tablet by mouth two times a day. Please review and advise. Renetta Gant MA [facility]04-16-2024 Miscellaneous Notes* Telephone Encounter - Mathieu Virgen MD - 01/01/2024 2:13 PM EDT See letter. documented in this encounterOhio Valley Hospital04-16-2024 Miscellaneous Notes* Telephone Encounter - Mathieu Virgen MD - 01/01/2024 2:12 PM EDT See other note * Telephone Encounter - Osvaldo Regalado RN - 01/01/2024 12:07 PM EDT Daughter, Farida, reports she spoke with [employer] insurance, who informed her pcp would need to write a Prior Auth letter stating condition and diagnoses, and specify patient needs a lite weight, andfax it to [employer] at fax # [phone]. [facility] would then decide if they will cover it. Please phone Farida with any questions. documented in this encounterOhio Valley Hospital04-15-2024 Miscellaneous Notes* Telephone Encounter - Mathieu Virgen MD - 12/31/2023 9:37 AM EDT Printed. * Telephone Encounter - Jaylene Henlye LPN - 12/31/2023 8:46 AM EDT See MyChart message needs it to be for this scooter please. documented in this encounterOhio Valley Hospital04-09-2024 Miscellaneous Notes* Addendum Note - Mathieu Virgen MD - 12/25/2023 2:15 PM EDTAddended by: MATHIEU VIRGEN on: 12/25/2023 02:15 PM Modules accepted: Orders documented in this encounterOhio Valley Hospital04-09-2024 History of Present illness Narrative* Mathieu [...] chills. No cough. No dizziness. Latest Ref [facility] 11/28/2023 WBC 3.70 - 11.00 k/uL 10.24 [...] Abs Lymph 1.00 - 4.00 k/uL 2.31 Sandoval% % 11.1 Abs Sandoval <0.87 k/uL 1.14 (H) Eosin% % 3.4 [...] mouth every 12 hours. Prescribed by outside embroiderer hand No current facility-administered medications for this visit. [...] six months or prn documented in this encounterOhio Valley Hospital02-29-2024 Miscellaneous Notes* Telephone Encounter - Julianna [...] to file. Please advise documented in this encounterOhio Valley Hospital02-28-2024 Miscellaneous Notes* Telephone Encounter - Tammy [...] Lisa. Julia Chilel LPN documented in this encounterOhio Valley Hospital02-28-2024 Miscellaneous Notes* Telephone Encounter - Tammy Davies LPN - 11/14/2023 8:39 AM EST Patient daughter Farida raymond father has one pill left and wanted [...] you. Tammy Davies LPN. documented in this encounterOhio Valley Hospital02-16-2024 Miscellaneous Notes* Telephone Encounter - Jaylene [...] 12/05/23 Jaylene Henley LPN documented in this encounterOhio Valley Hospital01-27-2024 Miscellaneous Notes* Telephone Encounter - Miley [...] you. Miley Pemberton Ma. documented in this encounterOhio Valley Hospital01-06-2024 Discharge summary Author Tre Johnson [facility] September 22, 2023 2:48pm Note Date/Time September 22, 2023 10 :58am [facility] Medical Records Department [address] [place] [address] Emergency Department Summary 09/22/23 MR#: [id number] Acct: [id number] Name: FAISAL ALARCON Rep #:[id number] : 1945 78 From: Tre Johnson DO [...] he ate a big Mac and fries. [facility] Medical History Acute respiratory failure with [...] 71.2 H Lymph % (Auto) 14.7 L Sandoval % (Auto) 9.9 Eos % (Auto) 3.4 [...] 11:54 EST Reading Location ID and State: [address] [place] [address] Tel , Service support , Discharge Plan [...] your Primary Care Provider. Call [facility] ([phone]) or report to the closest Emergency Room. Call 911 if necessary. 09/22/23 1448 <Electronically signed by Tre Johnson DO> Cosigner Signature (if applicable): CC: Dr. Mathieu Virgen MD ~ Signed [facility] Work Phone: [phone]) 871-149812-21-2023 Miscellaneous Notes* Telephone Encounter - Liyah Monroy [...] last month. Protocols used: Cough - Acute Raailffbow-ZUAZR-FG documented in this encounterOhio Valley Hospital12-11-2023 Miscellaneous Notes* Telephone Encounter - Christian Bob - 08/27/2023 7:18 PM EST Patient phones requesting refills as follows: Requested Prescriptions Pending Prescriptions Disp Refills simvastatin (ZOCOR) 40 mg tablet 90 tablet 3 Sig: Take 1 tablet by mouth daily at bedtime. ALFA 07/23/23 NOV 12/05/23 Please review and advise. Christian Bob documented in this encounterOhio Valley Hospital11-21-2023 Miscellaneous Notes* Telephone Encounter - Lulu Walls - 08/07/2023 2:34 PM EST Forms completed and signed and faxed back to [facility] at [phone]. Patient informed. Lulu Walls * Telephone Encounter - Lulu Walls - 08/07/2023 2:14 PM EST Type of form: Patient Assistance. [facility] Form received via walk in When form is completed, Fax form to number on form. Form has been forwarded to Physician Desk: Dr. Virgen. Lulu Walls documented in this encounterOhio Valley Hospital11-06-2023 History of Present illness Narrative* Brenda Arrington RT(Eugenie) - 07/23/2023 3:00 PM EST Radiology Service [...] 23, 2023 2:55 PM documented in this encounterOhio Valley Hospital11-06-2023 History of Present illness Narrative* Pio [...] mouth every 12 hours. Prescribed by outside embroiderer hand famotidine (PEPCID) 20 mg tablet Take 1 [...] times daily before meals. Getting through [facility] metFORMIN ER (GLUCOPHAGE XR) 500 [...] RIGHT Pio Nicole MD documented in this encounterOhio Valley Hospital10-27-2023 Miscellaneous Notes* Telephone Encounter - Jaylene Henley LPN - 07/13/2023 4:19 PM EDT Notified that will place in medical records for clam picker. Can clam picker starting tomorrow 07/14/23. * Telephone Encounter - Mathieu Virgen MD - 07/13/2023 2:10 PM EDT Printed. * Telephone Encounter - Janet King Ma - 07/13/2023 1:49 PM EDT Received notification that patient will be due for re-enrollment for the [facility] patient assistance programs of Humalog and Basaglar starting 09/17/23. Call to daughter and advised her of this. She will start the process and get it to us. She is asking for a handicap placard to be completed for pt. Once done, call her for clam picker. Janet King Ma documented in this encounterOhio Valley Hospital10-03-2023 Miscellaneous Notes* Telephone Encounter - Jackelin [...] you. Jackelin Tinajero RN documented in this encounterOhio Valley Hospital09-23-2023 History of Present illness Narrative* Pio [...] times daily before meals. Getting through [facility] metFORMIN ER (GLUCOPHAGE XR) 500 [...] mouth every 12 hours. Prescribed by outside embroiderer hand aspirin 81 mg chewable tablet Take 81 [...] FRONTAL/LAT Pio Nicole MD documented in this encounterOhio Valley Hospital09-23-2023 Miscellaneous Notes* Telephone Encounter - Adele [...] last 30 days. Protocols used: Influenza - Elyexsxh-CMNWK-CB documented in this encounterOhio Valley Hospital09-21-2023 Miscellaneous Notes* Telephone Encounter - Kennedi [...] you. Kennedi Frey LPN documented in this encounterOhio Valley Hospital09-20-2023 History of Past illness Narrative* Problem [...] of this encounter (statuses as of 06/06/2023) [facility] of [facility] Narrative* Problem [...] of this encounter (statuses as of 06/08/2023) [facility] of Past [facility] Narrative* Problem [...] of this encounter (statuses as of 06/09/2023) [facility] of Past illness Narrative* Problem [...] of this encounter (statuses as of 06/09/2023) [facility] of [facility] Narrative* Problem [...] of this encounter (statuses as of 06/21/2023) [facility] of [facility] Narrative* Problem [...] of this encounter (statuses as of 07/13/2023) [facility] of [facility] Narrative* Problem [...] of this encounter (statuses as of 07/24/2023) [facility] of [facility] Narrative* Problem Noted Date Diagnosed Date Resolved Date Acute cholecystitis 06/06/2023 06/06/2023 06/06/20 Acute respiratory failure 06/06/2023 06/06/2023 History of atrial fibrillation 06/06/2023 06/06/2023 06/06/2023 Left lower lobe pneumonia 06/06/2023 06/06/2023 Mild dehydration 04/04/2023 06/06/2023 06/06/2023 Nausea 03/06/2023 06/06/2023 06/06/2023 Abdominal pain 08/18/2022 06/06/202306/06/2023 SOB (shortness of breath) 01/31/2021 Abnormal EKG [...] of this encounter (statuses as of 08/08/2023) [facility] Narrative* Problem [...] of this encounter (statuses as of 08/29/2023) [facility] Narrative* Problem [...] of this encounter (statuses as of 09/07/2023) [facility] Narrative* Problem [...] of this encounter (statuses as of 10/14/2023) [facility] of [facility] Narrative* Problem Noted Date Diagnosed Date Resolved Date Acute cholecystitis 06/06/2023 06/06/202320 23 Acute respiratory failure 06/06/2023 06/06/2023 History [...] of this encounter (statuses as of 11/02/2023) [facility] Narrative* Problem [...] of this encounter (statuses as of 11/15/2023) [facility] Narrative* Problem [...] of this encounter (statuses as of 11/15/2023) [facility] Narrative* Problem [...] of this encounter (statuses as of 12/26/2023) [facility] Narrative* Problem [...] of this encounter (statuses as of 01/01/2024) [facility] Narrative* Problem [...] of this encounter (statuses as of 01/02/2024) [facility] Narrative* Problem Noted Date Diagnosed Date Resolved Date Acute cholecystitis 06/06/2023 06/06/2023 06/06/20 23 Acute respiratory failure 06/06/2023 06/06/2023 History of atrial fibrillation 06/06/2023 06/06/2023 06/06/2023 Left lower lobe pneumonia 06/06/2023 06/06/2023/2023 Mild dehydration 04/04/2023 06/06/2023 06/06/2023 Nausea 03/06/2023 [...] of this encounter (statuses as of 01/02/2024) [facility] of Present illness Narrative* Mathieu [...] Abs Lymph 1.00 - 4.00 k/uL 1.48 Sandoval% % 9.5 Abs Sandoval <0.87 k/uL 1.16 (H) Eosin% % 1.7 [...] Ketones, Urine Trace, Negative Negative Negative Specific Davidson, Ur 1.005 - 1.030 1.022 1.022 Hemoglobin/Blood,Ur [...] times daily before meals. Getting through [facility] losartan-hydroCHLOROthiazide (HYZAAR) 100-12.5 mg per [...] mouth every 12 hours. Prescribed by outside embroiderer hand aspirin 81 mg chewable tablet Take 81 [...] I48.0 - stable. Stay on meds. See [facility] in the winter again. 4. [...] cough. Mathieu Virgen MD documented in this encounterOhio Valley Hospital09-18-2023 Miscellaneous Notes* Telephone Encounter - Angelina [...] advise. Kristina Higuera LPN documented in this encounterOhio Valley Hospital09-01-2023 Instructions* Patient Instructions* Osvaldo Travis PA-C - 05/18/2023 4:12 PM EDT Please push fluids with water, non-caffeinated and non-alcoholic beverages, 6-8 glasses today. If you feel weak, faint, or have chest pain, call 911 and have the squad take you to ER. Try to stay cool for the next few days and rest. documented in this encounterOhio Valley Hospital09-01-2023 History of Present illness Narrative* Osvaldo [...] three times daily before meals. Getting through [facility] 5 Each 1 losartan-hydroCHLOROthiazide (HYZAAR) 100-12.5 [...] mouth every 12 hours. Prescribed by outside embroiderer hand aspirin 81 mg chewable tablet Take 81 [...] a chair. Negative Romberg. No past-pointing, normal kjyr-gd-qshm. Seems stiff which I think is affecting his gait. EKG demonstrates normal sinus rhythm with first-degree AV block with MN of 222 MS, otherwise metrics are normal. 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 There is no change from prior EKG 03/01/2023 online under [facility]: I was able to download [...] there. Osvaldo Travis PA-C documented in this encounterOhio Valley Hospital08-30-2023 Miscellaneous Notes* Telephone Encounter - Mathieu [...] and advise. Gin Khan documented in this encounterOhio Valley Hospital08-25-2023 Miscellaneous Notes* Telephone Encounter - Jaylene Henley LPN - 05/11/2023 3:48 PM EDT Forms completed and faxed. * Telephone Encounter - Jaylene Henley LPN - 05/11/2023 3:08 PM EDT Type of form: Prescription Assistance Form received via walk in When form is completed, Fax form to [phone] Form has been forwarded to Physician Desk: Dr. Marilynn Henley LPN documented in this encounterOhio Valley Hospital08-15-2023 History of Present illness Narrative* Osvaldo Travis PA-C - 05/01/2023 3:24 PM EDT Here to review bleeding area from largest skin tag removal yesterday. No areas bleeding on exam. Instructed if bleeding, hold pressure solidly for 5 minutes and recheck. BP 118/70 Pulse 80 Temp 36.6 C (97.9 F) (Left Tympanic) Resp 20 SpO2 96% Osvaldo Travis PA-C documented in this encounterOhio Valley Hospital08-14-2023 Instructions* Patient Instructions* Osvaldo Travis PA-C [...] recheck in three weeks. documented in this encounterOhio Valley Hospital08-14-2023 History of Present illness Narrative* Osvaldo [...] mouth every 12 hours. Prescribed by outside embroiderer hand aspirin 81 mg chewable tablet Take 81 [...] appointment Osvaldo Travis PA-C documented in this encounterOhio Valley Hospital07-28-2023 Miscellaneous Notes* Telephone Encounter - Shaye [...] Thank you. MANDI Santos documented in this encounterOhio Valley Hospital07-06-2023 Miscellaneous Notes* Telephone Encounter - Denisha Shepard APRN.CNP - 03/22/2023 12:48 PM EDT This encounter was opened in error. documented in this encounterOhio Valley Hospital06-19-2023 Instructions* Patient Instructions* Andrew Guallpa APRN.CNP [...] more? National [employer] Information [employer] [place], [place] [address] www.digestive.niddk.nih.gov email: References: National Digestive [employer] Information Clearinghouse. Constipation. digestive.niddk.nih.gov Accessed June 21, 2012. [place] [employer]. Understanding Constipation. www.gastro.org. Accessed June 21, 2012. Copyright 8129-4994 [facility]. All rights reserved This information is provided by the [facility] and is not intended to replace the medical advice of your doctor or health care provider. Please consult your health care provider for advice about a specific medical condition. For additional health information, please contact the Center for [employer] Health Information at the [facility] or toll-free extension [phone]. If you prefer, you may visit [email or web address] or [email or web address]. This document was last reviewed on: 2012 index #4059 documented in this encounterOhio Valley Hospital06-19-2023 History of Present illness Narrative* Andrew [...] mouth every 12 hours. Prescribed by outside embroiderer hand aspirin 81 mg chewable tablet Take 81 [...] of care. This note was generated using Outside.in software. It may contain errors in wording, punctuation, or spelling. Andrew Guallpa APRN.CAESAR documented in this encounterOhio Valley Hospital06-16-2023 History of Present illness Narrative* Mathieu Virgen MD - 03/02/2023 4:21 PM EDT Patient presents with: ED Follow-up HPI: Patient presents today for office visit for ER follow up. HOSPITAL/ER FOLLOW UP: Reason for visit: 02/26/23 hypoglycemia (40) 03/01/23 abd pain and nausea Which facility: [facility] Diagnosis: mild dehydration, abd pain Testing [...] three times daily before meals. Getting through [email or web address] ELIQUIS 5 mg tab(s) Take 1 tablet [...] mouth every 12 hours. Prescribed by outside embroiderer hand aspirin 81 mg chewable tablet Take 81 [...] UROLOGY Mathieu Virgen MD documented in this encounterOhio Valley Hospital06-15-[address] Taylor [facility] March 01, 2023 10:43pm Note Date/Time March 01, 2023 8:54 pm [facility] Medical Records Department [address] [place] [address] Emergency Department Summary 03/01/23 MR#: [id number] Acct: [id number] Name: FAISAL ALARCON Rep #:[id number] : 1945 77 From: Kodi Taylor MD [...] Nothing specifically makes this better or worse. [facility] Medical History Acute respiratory failure with [...] % (Auto) 62.9 Lymph % (Auto) 21.9 Sandoval % (Auto) 11.2 H Eos % (Auto) [...] Clarity Clear Urine pH 5.0 Ur Specific Davidson 1.025 Urine Protein 15 H Urine Glucose [...] sign of acute ST elevation or depression. MN interval is normal. QRS duration and QTc [...] problems, contact your Primary Care Provider. Call [facility] ([phone]) or report to the closest Emergency Room. Call 911 if necessary. 03/01/232242 <Electronically signed by Kodi Taylor MD> Cosigner Signature (if applicable): CC: Dr. Mathieu Virgen MD ~ Signed [facility] Work Phone: 1(527) 920-248806-08-2023 Miscellaneous Notes* Telephone Encounter - Tammy Davies [...] daily?If so will need new rx to [facility] pharmacy. Please advise documented in this encounterOhio Valley Hospital06-02-2023 Miscellaneous Notes* Telephone Encounter - Janet King Ma - 02/16/2023 4:16 PM EDT Patient was made aware of the results. Patient verbalizes understanding. Janet King Ma * Telephone Encounter - Denisha Shepard APRN.CNP - 02/16/2023 3:54 PM EDT Can please [...] repeated in 10-14 days. documented in this encounterOhio Valley Hospital06-02-2023 Instructions* Patient Instructions* Denisha Shepard APRN.CNP - 02/16/2023 3:08 PM EDT Lurdes wrap. Rest Ice Prop the foot. Tylenol as needed. documented in this encounterOhio Valley Hospital06-02-2023 History of Present illness Narrative* Denisha [...] mouth every 12 hours. Prescribed by outside embroiderer hand aspirin 81 mg chewable tablet Take 81 [...] agrees with the plan. documented in this encounterOhio Valley Hospital05-31-2023 Nurse Note* Michelle Jara RN - [...] well. Michelle Jara RN documented in this encounterOhio Valley Hospital05-05-2023 History of Present illness Narrative* Mathieu [...] mouth every 12 hours. Prescribed by outside embroiderer hand aspirin 81 mg chewable tablet Take 81 [...] SURGERY Mathieu Virgen MD documented in this encounterOhio Valley Hospital03-15-2023 History of Present illness Narrative* Mathieu Virgen MD - 11/29/2022 9:33 AM EDT Patient presents with: Transition Of Care HPI: Patient presents today for office visit for hospital follow up. Seen in [facility] on 11/21/22. Discharged 11/21/22 Chest pain. [...] note: TRANSITION CARE MANAGEMENT (TCM) INITIAL CONTACT [employer] Outreach Provider Action/FYI: -pt admitted to [facility] on 11/21/22 for 24hr observation d/t [...] Abs Lymph 1.00 - 4.00 k/uL 1.95 Sandoval% % 9.8 Abs Sandoval <0.87 k/uL 1.09 (H) Eosin% % 4.1 [...] mouth every 12 hours. Prescribed by outside embroiderer hand aspirin 81 mg chewable tablet Take 81 [...] stable. Mathieu Virgen MD documented in this encounterOhio Valley Hospital03-13-2023 Miscellaneous Notes* Telephone Encounter - Sheila [...] as the lab orders are in. PH> [phone]. Kennedi Frey LPN * Telephone Encounter - [...] Thank you, Michaelle HERBERT documented in this encounterOhio Valley Hospital03-08-2023 History of Present illness Narrative* Christian Bob LPN - 11/22/2022 9:23 AM EST TRANSITION CARE MANAGEMENT (TCM) INITIAL CONTACT [employer] Outreach Provider Action/FYI: -pt admitted to [facility] on 11/21/22 for 24hr observation d/t [...] flowsheet data found. SUMMARY: -Pt discharged from [facility] on 11/21/22. -Admitted for: Chest Pain Do you have a hospital follow up appointment with your PCP? Appointment on 11/[address] Virgen. Yes. Remind patient of appointment date, time, and location. If not within 14 calendar days of discharge - please reschedule accordingly. Medical records from recent hospitalization: Epic Placed in provider mailbox for further review. documented in this encounterOhio Valley Hospital03-07-2023 History and physical note Author Dr. Stevenson [facility] November 21, 2022 7:08am Note Date/Time November 21, 2022 6:46 am [facility] Medical Records Department [address] [place] [address] History & Physical Exam 11/21/22 0644 MR#: [id number] Acct: [id number] Name: FAISAL ALARCON Rep #:[id number] : 1945 77 From: Mariza Stevenson MD PCP: Dr. Mathieu Virgen MD Status:ADM I NO Location: [place] [address] HPI - General General Date of Admission: 11/21/22 Date of Service: 11/21/22 Chief Complaint: Chest pain. HPI Narrative The patient is a 77 y/o M w/ PMHx: PAF, BPH, HTN, HLD, IDDM, Nonobstructive CAD,Morbid obesity, Former tobacco use who presents to the [facility] ED on 11/21/22 initially earlier in [...] included CBC with WC 12.1 coming 114.7, smrivqlg125 with left shift, BMP with sodium 134, [...] similar. In the ED patient administered NG. [facility] Medical History Acute respiratory failure [...] Former tobacco use who presents to the [facility] ED on 11/21/22 initially earlier in [...] 55 minutes. Charges/Coding Visit Charges Inpatient E&M: 92882 Init Hosp L2 Procedures Hospitalists Procedures: 78548 Advncd Care Plan 30 Min 11/21/22 0708 <Electronically signed by Mariza Stevenson MD> Cosigner Signature (if applicable): CC: Dr. Mariza Stevenson MD; Dr. Mathieu Virgen MD~ Signed [facility] Work Phone: 1(812) 415-789102-25-2023 Miscellaneous Notes* Telephone Encounter - Christian Bob LPN - 11/11/2022 10:44 AM EST Patient phones requesting refills as follows: Requested Prescriptions Pending Prescriptions Disp Refills losartan-hydroCHLOROthiazide (HYZAAR) 100-12.5 mg per tablet 90 tablet 1 Sig: Take 1 tablet by mouth once daily. Please review and advise. Christian Bob LPN documented in this encounterOhio Valley Hospital02-24-2023 Miscellaneous Notes* Telephone Encounter - Gin Herbert - 11/10/2022 11:30 AM EST Pharmacy verified in [facility] Patient has been identified by name and [...] advise. Gin Longoria Pss documented in this encounterOhio Valley Hospital02-09-2023 Miscellaneous Notes* Telephone Encounter - Kaitlyn [...] to request new refill. Daughter expressed understanding. Rhiannon RicksD, [facility] Primary Care Clinical Pharmacist documented in this encounterOhio Valley Hospital01-30-2023 Miscellaneous Notes* Addendum Note - Kaitlyn Hernández RPh - 10/16/2022 12:50 PM ESTAddended by: KAITLYN HERNÁNDEZ on: 10/16/2022 12:50 PM Modules accepted: Orders * Telephone Encounter - Kaitlyn Hernández RPh - 10/16/2022 12:46 PM EST Daughter returned call, [facility] insurance needs a PA for Basaglar ([employer] reviewed formulary online and Basaglar is not a preferred insulin - Lantus, Toujeo, and Tresiba are). Patient used to be on Lantus. Discussed with daughter - will order Lantus to see what copay is. If affordable, she will clam picker supply. If not affordable, she will [...] Will await daughter's call. Kaitlyn Hernández PharmD, [facility] Primary Care Clinical Pharmacist * Telephone Encounter - Kaityln Hernández RPh - 10/16/2022 12:24 PM EST Patient's daughter, Farida, called [employer] and LMOM stating patient will be running out of insulin tomorrow, needs another free trial card. Patient has application in for [employer] PAP. She called [employer] this AM, states they still have not [...] of insulin. [employer] advised daughter to contact [employer], [employer] and ask them to process the Basaglar [...] to keep me informed. Kaitlyn Hernández PharmD, [facility] Primary Care Clinical Pharmacist documented in this encounterOhio Valley Hospital01-18-2023 Miscellaneous Notes* Telephone Encounter - Christian Bob LPN - 10/04/2022 9:32 AM EST Patient phones requesting refills as follows: Requested Prescriptions Pending Prescriptions Disp Refills metFORMIN ER (GLUCOPHAGE XR) 500 mg 24 hr tablet 360 tablet 3 Sig: Take 2 tablets by mouth twice daily before meals. ALFA 05/31/22 11/29/22 Please review and advise. Christian Bob LPN documented in this encounterOhio Valley Hospital01-18-2023 Miscellaneous Notes* Telephone Encounter - Christian Bob LPN - 10/04/2022 9:31 AM EST Patient phones requesting refills as follows: Requested Prescriptions Pending Prescriptions Disp Refills carvedilol (COREG) 25 mg tablet 180 tablet 1 Sig: Take 1 tablet by mouth twice daily. ALFA 05/31/22 11/29/22 Please review and advise. Christian Bob LPN documented in this encounterOhio Valley Hospital01-13-2023 Miscellaneous Notes* Telephone Encounter - Kaitlyn Hernández RPh - 09/29/2022 9:18 AM EST Patient's daughter, Farida, called PharmD and LMOM stating the [employer] application for insulins was submitted this week [...] spoke with patient's daughter. Sent her a [employer] message with a Basaglar Free Trial Offer. [...] Provider: MATHIEU VIRGEN Ordering User: KAITLYN HERNÁNDEZ RP documented in this encounterOhio Valley Hospital01-10-2023 Miscellaneous Notes* Telephone Encounter - Janet King Ma - 09/26/2022 9:51 AM EST Talked to daughter and advised of time and fax number. Janet King Ma * Telephone Encounter - Jaylene Henley LPN - 09/25/2022 8:01 PM EST Sent from [phone] at 8:00pm. (If no error report in [...] give to daughter so she can have [facility] shipped for this week. * Telephone [...] of medications assistance forms for insulins through [employer]. Asking if these were received and fill out? Please fax this [phone]. Please contact Farida back either way. If provider does not have form Farida can come by and drop of other form. Please review and advise, Reanna Brannon RN documented in this encounterOhio Valley Hospital12-05-2022 Miscellaneous Notes* Telephone Encounter - Alejandrina Herbert [...] notify patient. Alejandrina Herbert documented in this encounterOhio Valley Hospital11-21-2022 Miscellaneous Notes* Telephone Encounter - Reanna [...] tetanus booster? Unsure Protocols used: Skin Foreign [id number] documented in this encounterOhio Valley Hospital10-06-2022 Miscellaneous Notes* Telephone Encounter - Kaitlyn Hernández RPh - 06/22/2022 11:52 AM EDT [employer] sent request to PAP technicians to assist with [employer] application for Jardiance 10mg daily. Kaitlyn Hernández PharmD, [facility] Primary Care Clinical Pharmacist documented in this encounterOhio Valley Hospital10-06-2022 History of Present illness Narrative* Kaitlyn [...] On Statin: Yes ROS: Patient denies CP, JENSEN, blurred vision, dizziness or lightheadedness; reports SOB which is baseline for patient Patient denies symptoms of hypoglycemia (sweating, anxiety, palpitations, hunger, and tremor) Patient denies symptoms of hyperglycemia (polyuria, polydipsia, polyphagia) Patient denies potential medication adverse effects DIET/EXERCISE/SOCIAL Hx: Has been eating [employer] food a lot this summer; went to [employer] daily; goes several times per week Fried veggies, sandwiches Breakfast: couple of eggs, 4 pieces muñoz; occasionally will have waffle Lunch: yesterday had small serving mashed potatoes, baked beans, and steak Dinner: usually the same as lunch; occasionally will have salad No exercise MEDICATIONS: Pill bottles are not present Adherence: denies missed doses Pharmacy: [facility] in [place] Rx coverage: [employer] Affordability: Gets Eliquis, Humalog, [...] mouth every 12 hours. Prescribed by outside embroiderer hand insulin glargine (LANTUS SOLOSTAR U-100 INSULIN) 100 [...] TG 130 08/16/2021 The ASCVD Risk score ([place] DK, et al., 2019) failed to calculate [...] time was 35 minutes. documented in this encounterOhio Valley Hospital10-06-2022 Instructions* Patient Instructions* Kaitlyn Hernández RPh - 06/22/2022 11:00 AM EDT START Jardiance 10mg daily. If it is too expensive, let me know. Start to work on your diet. We want all blood sugars to be less than 200 mg/dL. documented in this encounterOhio Valley Hospital09-14-2022 History of Present illness Narrative* Mathieu [...] Abs Lymph 1.00 - 4.00 k/uL 1.67 Sandoval% % 11.8 Abs Sandoval <0.87 k/uL 1.20 (H) Eosin% % 3.3 [...] mouth every 12 hours. Prescribed by outside embroiderer hand simvastatin (ZOCOR) 40 mg tablet Take 1 [...] RTO in six month documented in this encounterOhio Valley Hospital08-22-2022 Miscellaneous Notes* Telephone Encounter - Christian Bob LPN - 05/08/2022 5:59 PM EDT Patient phones requesting refills as follows: Requested Prescriptions Pending Prescriptions Disp Refills losartan-hydroCHLOROthiazide (HYZAAR) 100-12.5 mg per tablet 90 tablet 1 Sig: Take 1 tablet by mouth once daily. ALFA 03/03/22 NOV 05/31/22 Please review and advise. Christian Bob LPN documented in this encounterOhio Valley Hospital07-23-2022 History of Present illness Narrative* Andrew Guallpa APRN.CYBER SECURITY SYSTEMS ENGINEER - 04/08/2022 2:52 PM EDT Subjective HPI [...] mouth every 12 hours. Prescribed by outside embroiderer hand simvastatin (ZOCOR) 40 mg tablet Take 1 [...] care. Andrew Guallpa APRN.CAESAR documented in this encounterOhio Valley Hospital07-07-2022 Miscellaneous Notes* Telephone Encounter - Kaitlyn Hernández RPh - 03/23/2022 1:22 PM EDT Lisy completed Rx section of [employer] application for Basaglar (to replace Lantus). Full application not required since patient already enrolled and receiving free Humalog. Rx placed on PCP's desk for signature. Kaitlyn Hernández PharmD, [facility] Primary Care Clinical Pharmacist Lisa Souza [facility] documented in this encounterOhio Valley Hospital07-07-2022 History of Present illness Narrative* Kaitlyn [...] Statin: Yes ROS: Patient denies CP, SOB, JENSEN, blurred vision, dizziness or lightheadedness Patient denies [...] Humalog, and [employer] through [employer] Diabetes supplies: [employer] System: daughter sets up pill box, [...] mouth every 12 hours. Prescribed by outside embroiderer hand insulin glargine (LANTUS SOLOSTAR U-100 INSULIN) 100 [...] TG 130 08/16/2021 The ASCVD Risk score ([place] PÉREZ Jr., et al., 2013) failed to calculate for the following reasons: The valid total cholesterol range is 130 to 320 mg/dL Albumin/Creat Ratio (mg/g) Date Value 08/16/2021 231 (H) PHARMACOTHERAPY ASSESSMENT/PLAN: 1. Type 2 diabetes mellitus without complication, with long-term current use of insulin ([facility]) - ICD9: 250.00, V58.67, ICD10: E11.9, Z79.4 [...] Basaglar so he can get it through [email or web address] to replace Lantus Applauded on reducing portion [...] verbalized understanding of instructions. Kaitlyn Hernández PharmD, [facility] Primary Care Clinical Pharmacist Lisa Souza [facility] The majority of the pharmacy visit (> 50%) was spent counseling and/or coordinating care for thepatient. interaction: face to face time was 35 minutes. documented in this encounterOhio Valley Hospital07-07-2022 Instructions* Patient Instructions* Kaitlyn Hernández RPh [...] accurate than wrist cuffs. documented in this encounterOhio Valley Hospital06-20-2022 Miscellaneous Notes* Telephone Encounter - Mathieu [...] and resend to the [facility] on [address]. Daughter, Farida, can be reached at [phone] documented in this encounterOhio Valley Hospital06-20-2022 Miscellaneous Notes* Telephone Encounter - Jaylene Henley LPN - 03/06/2022 12:13 PM EDT Patient has been identified by name and date of : Yes Type of form: Prescription Assistance [employer] (humalog kwconniepen) Form received via: at visit form was given to Dr Marilynn Virgen completed form When form is completed, fax form to fax number provided. Form has been forwarded to: Nurse and faxed 03/06/22 Jaylene Henley LPN documented in this encounterOhio Valley Hospital06-17-2022 History of Present illness Narrative* Mathieu [...] mouth every 12 hours. Prescribed by outside embroiderer hand Losartan-hydroCHLOROthiazide 100-12.5 mg per tablet Take 1 [...] three months and prn. documented in this encounterOhio Valley Hospital05-26-2022 Miscellaneous Notes* Telephone Encounter - Jaylene Henley LPN - 02/09/2022 11:36 AM EDT [facility] [address] Chart Copy of medications dispensed to patient for home use February 09, 2022 Physician Initial: MIRANDA Alarcon Medication: Lantus Qty: 5 boxes Directions: Inject 90 units daily. Medications administered, dispensed and verified on the date indicated above Patient has been notified to clam picker medication in Dr. Virgen's office. Jaylene Henley LPN documented in this encounterOhio Valley Hospital05-24-2022 Miscellaneous Notes* Telephone Encounter - Kaitlyn Hernández RPh - 02/07/2022 10:17 AM EDT PharmD called daughter. She said they were able to get Lantus yesterday, got full box of Lantus for$35 (insurance covered it). [employer] spoke with daughter, will plan to apply for [employer] PAP [facility] in March at next PharmD appt so patient doesn't have this issue again with [employer]. Kaitlyn Hernández PharmD, [facility] Primary Care Clinical Pharmacist [facility] * Telephone Encounter - Kaitlyn [...] me updated on status. Kaitlyn Hernández PharmD, [facility] Primary Care Clinical Pharmacist Lisa Souza [facility] * Telephone Encounter - Kaitlyn Hernández [...] Semglee - can purchase a vial from [facility] with a GoodRx coupon for ~$60. Patient [...] pharmacy). Patient has issues getting Lantus through [employer]. She has no issues getting Humalog through [employer]. Briefly discussed possibly switching patient from Lantus to Basaglar later this summer so no longer has issues with insulin supply. Daughter thought this would be a good idea so will do paperwork later this summer. PharmD will await daughter's call. Kaitlyn Hernández PharmD, [facility] Primary Care Clinical Pharmacist Lisa Souza [facility] * Telephone Encounter - Jaylene Henley [...] patient insurance. Family could checkwith [employer]([phone]) for short term cost assistance. Negrita will also send note to Diana as Sw noted that patient follows with Kaitlyn in regards to hisdiabetes care and see if she has any short term assistance ideas. * Telephone Encounter - Jaylene Henley LPN - 02/06/2022 10:02 AM EDT Patient daughter states that [employer] sends refill form to our office 1 [...] Virgen MD] Preferred pharmacy: [facility] [place] [address] - [phone] - [phone] Delivery method: MailD Daughter says patient will be out of the medication tonight. The shipment for this medication does not go out until today so she is asking for a pen that he could have. Please return call to daughter, [phone] documented in this encounterOhio Valley Hospital05-20-2022 Instructions* Patient Instructions* Papito Castano V, DO - 02/03/2022 2:02 PM EDT Thank you for choosing the [facility] for your acute [...] physician or booking an appointment, please call [phone] or speak with any Patient Car Mover. Hours: Sunday through Sunday 7:30 am to 7:00 pm. Sunday and Sunday: 8:00 am to 2:30 pm. documented in this encounterOhio Valley Hospital05-20-2022 History of Present illness Narrative* Papito [...] calf and leg. He was seen in [facility] hastried elevation, compression wrapping. PAST MEDICAL HISTORY [...] mouth every 12 hours. Prescribed by outside embroiderer hand Losartan-hydroCHLOROthiazide 100-12.5 mg per tablet Take 1 [...] Continuous Intervention/Comfort measure: Medication documented in this encounterOhio Valley Hospital05-18-2022 Miscellaneous Notes* Telephone Encounter - Tammy Davies LPN - 02/01/2022 10:28 AM EDT Patient daughter Farida calling asking for refill on father Lantus insulin 90 day supply from Patient assistance with [employer]. Yesterday request was not sent correctly. She said gets faxed to [employer]. The Insulin gets mailed to his home. She did not have the fax number, she gave me phone number for [employer] [phone]. Father has 4 days Lantus left. Please advise documented in this encounterOhio Valley Hospital05-17-2022 Miscellaneous Notes* Telephone Encounter - Janet [...] patient. Radha Frey Pss documented in this encounterOhio Valley Hospital05-13-2022 History of Present illness Narrative* Saad Park APRN.CYBER SECURITY SYSTEMS ENGINEER - 01/27/2022 3:27 PM EDT Images from the original note were not included. 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 This started today. Has tried nothing for relief. Symptoms are worsened by walking. Denies numbness/tingling of right lower extremity. 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 Prescribed by outside embroiderer hand insulin glargine (LANTUS SOLOSTAR U-100 INSULIN) 100 [...] plan Saad Park APRN.CAESAR documented in this encounterOhio Valley Hospital04-28-2022 Miscellaneous Notes* Telephone Encounter - Kaitlyn Hernández RPh - 01/12/2022 3:09 PM EDT During PharmD visit for DM today, patient's daughter reported patient needs a refill of colestipol.Refill order pended for PCP signature if appropriate. Pending Prescriptions Disp Refills COLESTIPOL 1 GRAM TABLET 60 tablet 5 Sig: Take 1 tablet by mouth twice daily. JANET: No Kaitlyn Hernández RPh documented in this encounterOhio Valley Hospital04-28-2022 History of Present illness Narrative* Kaitlyn [...] Statin: Yes ROS: Patient denies CP, SOB, JENSEN, blurred vision, dizziness or lightheadedness Patient denies [...] mouth every 12 hours. Prescribed by outside embroiderer hand flecainide (TAMBOCOR) 150 mg tablet Take 150 [...] by mouth once daily. Prescribed by Dr. aDley, Urologist trimethoprim-polymyxin (POLYTRIM) 10,000 unit- 1 mg/mL [...] [facility] Primary Care Clinical Pharmacist Lisa Souza [facility] The majority of the pharmacy visit (> 50%) was spent counseling and/or coordinating care for thepatient. interaction: face to face time was 35 minutes. documented in this encounterCleveland [id number] Instructions* Patient Instructions* Kaitlyn Hernández RPh - [...] butter DRINK MORE WATER documented in this encounterOhio Valley Hospital04-18-2022 Miscellaneous Notes* Telephone Encounter - Kaitlyn Hernández RPh - 01/02/2022 2:42 PM EDT [facility] called [facility] ([phone]) and spoke with a helpful inbound call center representative. She stated patient is due to have a shipment tomorrow. Medical Records Clerk changed the delivery information so this shipment will be shipped to patient's home. PharmD called patient's daughter, Farida, and informed of the above information. Kaitlyn Hernández PharmD, [facility] Primary Care Clinical Pharmacist Lisa Souza [facility] * Telephone Encounter - Denisha Shepard APRN.CNP - 12/30/2021 5:51 PM EDT Is this something that can be done, or does it need to come here? * Telephone Encounter - Nisha [place] - 12/30/2021 12:05 PM EDT Patient's daughter calling regarding patient's request for medicationi nsulin lispro (HUMALOG KWIKPEN INSULIN) 100 unit/mL . Daughter, Farida says the medication is shipped by [facility], . Medication is being sent to [facility] instead of patient's home. Daughter is asking for this to be changed to being delivered to patient's home. Please return call to Farida ([phone]) when corrected. documented in this encounterOhio Valley Hospital04-14-2022 Miscellaneous Notes* Telephone Encounter - Leslie [...] notify patient. Leslie Herbert documented in this encounterOhio Valley Hospital04-14-2022 Miscellaneous Notes* Telephone Encounter - Janet King Ma - 12/29/2021 3:12 PM EDT refaxed to [facility] * Telephone Encounter - Julianna Lynn LPN - 12/13/2021 4:13 PM EDT Faxed to number provided. * Telephone Encounter - Mathieu Virgen MD - 12/13/2021 4:02 PM EDT done * Telephone Encounter - Aly Marcial Ma - 12/13/2021 3:57 PM EDT Please print/sign rx and than fax to [facility] Aly Marcial Ma * Telephone Encounter - Grace Greene - 12/13/2021 3:45 PM EDT Faisal Alarcon's daughter is calling Mathieu Virgen MD office today requesting a corrected script for Humalog is sent to [facility]. The last script sent was for 16 units and not 26 units. He is going to run out of insulin Please advise insulin lispro (HUMALOG KWIKPEN INSULIN) 100 unit/mL 5 Pen 1 11/03/2021 Sig: Inject 26 Units subcutaneously three times daily before meals. Class: Med Update Route: SUBCUTANEOUS documented in this encounterOhio Valley Hospital03-31-2022 Miscellaneous Notes* Telephone Encounter - Janet King Ma - 12/15/2021 6:02 PM EDT PCP portion signed and returned to PharmD * Telephone Encounter - Kaitlny Hernández RPh - 12/15/2021 3:12 PM EDT [...] from 12/15 for details). Kaitlyn Hernández PharmD, [facility] Primary Care Clinical Pharmacist Lisa Souza [facility] documented in this encounterOhio Valley Hospital10-27-2021 History of Present illness Narrative* Malik [...] 13, 2021 10:08 AM documented in this encounterOhio Valley Hospital09-08-2021 History of Present illness Narrative* Brenda [...] IV DATA: Not applicable SIGNED BY: RT Griselda(Eugenie) May 25, 2021 2:53 PM documented in this encounterOhio Valley Hospital05-17-2021 History of Past illness Narrative* Problem Noted Date Resolved Date SOB (shortness of breath) 01/31/20212020 Abnormal EKG 01/31/2021 05/06/2021 Sciatica 06/15/2005 05/06/2021 Paranoid schizophrenia, subc hronic condition with acute exacerbation 05/11/2005 04/23/2017 documented as of this encounter (statuses as of 12/12/2021) [facility] of Past illness Narrative* Problem Noted Date Resolved Date SOB (shortness of breath) 01/31/20212020 Abnormal EKG 01/31/2021 05/06/2021 Sciatica 06/15/2005 05/06/2021 Paranoid schizophrenia, subc hronic condition with acute exacerbation 05/11/2005 04/23/2017 documented as of this encounter (statuses as of 12/15/2021) [facility] of Past illness Narrative* Problem Noted Date Resolved Date SOB (shortness of breath) 01/31/20212020 Abnormal EKG 01/31/2021 05/06/2021 Sciatica 06/15/2005 05/06/2021 Paranoid schizophrenia, subc hronic condition with acute exacerbation 05/11/2005 04/23/2017 documented as of this encounter (statuses as of 12/29/2021) [facility] of [facility] illness Narrative* Problem Noted Date Resolved Date SOB (shortness of breath) 01/31/20212020 Abnormal EKG 01/31/2021 05/06/2021 Sciatica 06/15/2005 05/06/2021 Paranoid schizophrenia, subc hronic condition with acute exacerbation 05/11/2005 04/23/2017 documented as of this encounter (statuses as of 01/02/2022) [address]17-2021 History of Past illness Narrative* Problem Noted Date Resolved Date SOB (shortness of breath) 01/31/20212020 Abnormal EKG 01/31/2021 05/06/2021 Sciatica 06/15/2005 05/06/2021 Paranoid schizophrenia, subc hronic condition with acute exacerbation 05/11/2005 04/23/2017 documented as of this encounter (statuses as of 01/12/2022) [place] [id number] History of Past illness Narrative* Problem Noted Date Resolved Date SOB (shortness of breath) 01/31/20212020 Abnormal EKG 01/31/2021 05/06/2021 Sciatica 06/15/2005 05/06/2021 Paranoid schizophrenia, subc hronic condition with acute exacerbation 05/11/2005 04/23/2017 documented as of this encounter (statuses as of 01/12/2022) [facility] Narrative* Problem Noted Date Resolved Date SOB (shortness of breath) 01/31/20212020 Abnormal EKG 01/31/2021 05/06/2021 Sciatica 06/15/2005 05/06/2021 Paranoid schizophrenia, subc hronic condition with acute exacerbation 05/11/2005 04/23/2017 documented as of this encounter (statuses as of 01/27/2022) [facility] Narrative* Problem Noted Date Resolved Date SOB (shortness of breath) 01/31/20212020 Abnormal EKG 01/31/2021 05/06/2021 Sciatica 06/15/2005 05/06/2021 Paranoid schizophrenia, subc hronic condition with acute exacerbation 05/11/2005 04/23/2017 documented as of this encounter (statuses as of 01/31/2022) [facility] Narrative* Problem Noted Date Resolved Date SOB (shortness of breath) 01/31/20212020 Abnormal EKG 01/31/2021 05/06/2021 Sciatica 06/15/2005 05/06/2021 Paranoid schizophrenia, subc hronic condition with acute exacerbation 05/11/2005 04/23/2017 documented as of this encounter (statuses as of 02/01/2022) [facility] Narrative* Problem Noted Date Resolved Date SOB (shortness of breath) 01/31/20212020 Abnormal EKG 01/31/2021 05/06/2021 Sciatica 06/15/2005 05/06/2021 Paranoid schizophrenia, subc hronic condition with acute exacerbation 05/11/2005 04/23/2017 documented as of this encounter (statuses as of 02/02/2022) [facility] Narrative* Problem Noted Date Resolved Date SOB (shortness of breath) 01/31/20212020 Abnormal EKG 01/31/2021 05/06/2021 Sciatica 06/15/2005 05/06/2021 Paranoid schizophrenia, subc hronic condition with acute exacerbation 05/11/2005 04/23/2017 documented as of this encounter (statuses as of 02/03/2022) [facility] Narrative* Problem Noted Date Resolved Date SOB (shortness of breath) 01/31/20212020 Abnormal EKG 01/31/2021 05/06/2021 Sciatica 06/15/2005 05/06/2021 Paranoid schizophrenia, subc hronic condition with acute exacerbation 05/11/2005 04/23/2017 documented as of this encounter (statuses as of 02/07/2022) [facility] Narrative* Problem Noted Date Resolved Date SOB (shortness of breath) 01/31/20212020 Abnormal EKG 01/31/2021 05/06/2021 Sciatica 06/15/2005 05/06/2021 Paranoid schizophrenia, subc hronic condition with acute exacerbation 05/11/2005 04/23/2017 documented as of this encounter (statuses as of 02/09/2022) [facility]* Problem [...] of this encounter (statuses as of 03/03/2022) [facility] N[facility]* Problem [...] of this encounter (statuses as of 03/06/2022) [facility]* Problem [...] of this encounter (statuses as of 03/06/2022) [facility]* Problem [...] of this encounter (statuses as of 03/23/2022) [facility] N[facility]* Problem [...] of this encounter (statuses as of 03/23/2022) [facility]* Problem [...] of this encounter (statuses as of 04/08/2022) [facility] N[facility]* Problem [...] of this encounter (statuses as of 05/08/2022) [facility]* Problem [...] of this encounter (statuses as of 05/31/2022) [facility]* Problem [...] of this encounter (statuses as of 06/22/2022) [facility]* Problem [...] of this encounter (statuses as of 06/22/2022) [facility]* Problem [...] of this encounter (statuses as of 08/14/2022) [facility]* Problem [...] of this encounter (statuses as of 08/21/2022) [facility]* Problem [...] of this encounter (statuses as of 09/26/2022) [facility]* Problem [...] of this encounter (statuses as of 09/29/2022) [facility]* Problem [...] of this encounter (statuses as of 10/04/2022) [facility]* Problem [...] of this encounter (statuses as of 10/04/2022) [facility]* Problem [...] of this encounter (statuses as of 10/16/2022) [facility]* Problem [...] of this encounter (statuses as of 10/16/2022) [facility]* Problem [...] of this encounter (statuses as of 10/26/2022) [facility]* Problem [...] of this encounter (statuses as of 11/10/2022) [facility] Problem [...] of this encounter (statuses as of 11/13/2022) [facility] Problem [...] of this encounter (statuses as of 11/22/2022) [facility] Problem [...] of this encounter (statuses as of 11/27/2022) [facility]* Problem [...] of this encounter (statuses as of 11/29/2022) [facility] Problem [...] of this encounter (statuses as of 01/19/2023) [facility] Problem [...] of this encounter (statuses as of 02/14/2023) [facility] Problem [...] of this encounter (statuses as of 02/16/2023) [facility] Problem [...] of this encounter (statuses as of 02/17/2023) [facility] Problem [...] of this encounter (statuses as of 02/22/2023) [facility] Problem [...] of this encounter (statuses as of 03/03/2023) [facility] Problem [...] of this encounter (statuses as of 03/06/2023) [facility] Problem [...] of this encounter (statuses as of 03/20/2023) [facility] Problem [...] of this encounter (statuses as of 03/22/2023) [facility] Problem [...] of this encounter (statuses as of 04/13/2023) [facility]* Problem [...] of this encounter (statuses as of 04/26/2023) [facility] Problem [...] of this encounter (statuses as of 05/01/2023) [facility]* Problem [...] of this encounter (statuses as of 05/02/2023) [facility]* Problem [...] of this encounter (statuses as of 05/12/2023) [facility]* Problem Noted Date Diagnosed Date Resolved Date SOB (shortness of breath) 01/31/2021 Abnormal EKG 01/31/2021 05/06/2021 Nonspecific abnormal results of liver function study 03/31/2009 03/03/2022 Overview: ALT 57 in 6-, 83 in 09-25, 75 in 03-25 Clarify when Crestor started as labs first abnl on 09-19-08 US 03-25: multiple, small GS with no GB wall thickening, liver with fatty infiltration Sciatica 06/15/2005 05/06/2021 Paranoid schizophrenia, subc hronic condition with acute exacerbation 05/11/2005 04/23/2017 documented as of this encounter (statuses as of 05/17/2023) [facility] Narr[facility]* Problem [...] of this encounter (statuses as of 05/19/2023) [facility]* Problem [...] of this encounter (statuses as of 06/04/2023) [facility] of Present illness Narrative* Malik [...] IV DATA: Not applicable SIGNED BY: RT Natalie(Eugenie) January 24, 2021 2:41 PM documented in this encounterOhio Valley HospitalDischarge summary Author Dr. Yandy Gonzalez [facility] November 21, 2022 4:33pm Note Date/Time November 21, 2022 4:26 pm [facility] Medical Records Department [address] [place] [address] Discharge Summary 11/21/22 1625 MR#: [id number] Acct: [id number] Name: FAISAL ALARCON Rep #:[id number] : 1945 77 From: Narda Kebede MD PCP: Dr. Mathieu Virgen MD Status:ADM I NO Location: [place] [address] Providers Date of Admission: 11/21/22 Date of [...] patient was placed on a monitored bed SD was ruled out with serial cardiac enzymes [...] Self Care Charges/Coding Visit Charges Inpatient E&M: 90284 Disch Hosp >30min 11/21/22 1633 <Electronically signed by Narda Kebede MD> Cosigner Signature (if applicable): CC: Dr. Narda Kebede MD; Dr. Mathieu Virgen MD~ Signed [facility] Work Phone: Evaluation note* Diagnosis Type 2 diabetes mellitus without complication, with long-term current use of insulin (HCC) documented in this encounter [facility] note* Diagnosis Type 2 diabetes mellitus without complication, with long-term current use of insulin (HCC) documented in this encounter [facility] note* Diagnosis Type 2 diabetes mellitus without complication, with long-term current use of insulin ([facility]) documented in this encounter [facility] note* Diagnosis Type 2 diabetes mellitus without complication, with long-term current use of insulin (HCC)- Primary documented in this encounter [facility] note* Diagnosis Diarrhea, unspecified type documented in this encounter [facility] note* Diagnosis Strain of calf muscle, right, initial encounter- Primary [facility] Diagnosis Type 2 diabetes mellitus without complication, with long-term current use of insulin (HCC) [facility]* Diagnosis Gastrocnemius tear, right, initial encounter- Primary [facility]* Diagnosis Type 2 diabetes mellitus without complication, with long-term current use of insulin (HCC) [facility]* Diagnosis Onset Date Resolution Status Dyspnea on minimal exertion acute Paroxysmal atrial fibrillation acute Essential (primary) hypertension chronic Hyperlipidemia chronic Morbid obesity acute SOB (shortness of breath) [place] Morbid obesity acute SOB (shortness of breath) [place] Essential (primary) hypertension chronic Dyspnea on minimal exertion acute Paroxysmal atrial fibrillation acute Essential (primary) hypertension chronic Hyperlipidemia [facility] Work Phone: Evaluation note* Diagnosis Essential hypertension- Primary Unspecified essential hypertension Pure hypercholesterolemia Paroxysmal atrial fibrillation (HCC) Atrial fibrillation Type 2 diabetes mellitus with microalbuminuria, with long-term current use of insulin (HCC) Chronic anticoagulation Long-term (current) use of anticoagulants Need for hepatitis C screening test Special screening examination for other specified viral diseases [facility]* Diagnosis Diarrhea, unspecified type [facility]* Diagnosis Type 2 diabetes mellitus without complication, with long-term current use of insulin (HCC)- Primary Essential hypertension Unspecified essential hypertension [facility]* Diagnosis Onset Date Resolution Status Dyspnea on minimal exertion acute Paroxysmal atrial fibrillation acute Essential (primary) hypertension chronic Hyperlipidemia chronic Morbid obesity acute Restrictive airway disease [facility] Work Phone: Evaluation note* Diagnosis Chest pain, unspecified type- Primary Accidental medication error, initial encounter [facility] Diagnosis Essential hypertension Unspecified essential hypertension [facility] encounter [facility]* Diagnosis Essential hypertension- Primary Unspecified essential hypertension Paroxysmal atrial fibrillation (HCC) Atrial fibrillation Pure hypercholesterolemia Type 2 diabetes mellitus with microalbuminuria, with long-term current use of insulin (HCC) Chronic anticoagulation Long-term (current) use of anticoagulants Monocytosis Monocytosis (symptomatic) Need for influenza vaccination Need for prophylactic vaccination and inoculation against influenza [facility]* Diagnosis Type 2 diabetes mellitus without complication, with long-term current use of insulin (HCC)- Primary [facility]* Diagnosis Onset Date Resolution Status Dyspnea on minimal exertion acute Paroxysmal atrial fibrillation acute Essential (primary) hypertension chronic Hyperlipidemia chronic [facility] Work Phone: Evaluation note* Diagnosis Pure hypercholesterolemia [facility]* Diagnosis Type 2 diabetes mellitus without complication, with long-term current use of insulin ([facility]) documented in this encounter [facility] note* Diagnosis Onset Date Resolution Status Essential (primary) hypertension chronic Nonobstructive atherosclerosis of coronary artery chronic Paroxysmal atrial fibrillation chronic Chest pain acute Dyspnea on minimal exertion acute History of atrial fibrillation acute [facility] Work Phone: Evaluation note* Diagnosis Type 2 diabetes mellitus with microalbuminuria, with long-term current use of insulin (HCC)- Primary [facility]* Diagnosis Chest pain, unspecified type- Primary Leukocytosis, unspecified type Type 2 diabetes mellitus with microalbuminuria, with long-term current use of insulin ([facility]) Schizophrenia, 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, chronic condition Paroxysmal atrial fibrillation (HCC) Atrial fibrillation Essential hypertension Unspecified essential hypertension Pure hypercholesterolemia [facility]* Diagnosis Skin mass- Primary Localized superficial swelling, mass, or lump [facility]* Diagnosis Lesion of subcutaneous tissue- Primary Unspecified disorder of skin and subcutaneous tissue [facility]* Diagnosis Acute left ankle pain- Primary documented [facility] encounter [facility]* Diagnosis Onset Date Resolution Status History of atrial fibrillation acute Chest pain resolved Dyspnea on minimal exertion resolved Shortness of breath on exertion acute [facility] Work Phone: Evaluation note* Diagnosis Nausea- Primary Nausea alone Hypoglycemia Hypoglycemia, unspecified Type 2 diabetes mellitus with microalbuminuria, with long-term current use of insulin ([facility]) Leukocytosis, unspecified type Abnormal serum level of lipase Other nonspecific abnormal serum enzyme levels Benign prostatic hyperplasia with lower urinary tract symptoms, symptom details unspecified Urinary retention Retention of urine, unspecified documented in this encounter [facility] note* Diagnosis Acute constipation- Primary Unspecified constipation documented in this encounter [facility] note* Diagnosis OPENED IN ERROR- Primary To allow closing an encounter opened in error (used in SmartSet) [facility]* Diagnosis Onset Date Resolution Status Shortness of breath on exertion [facility] Work Phone: Evaluation note* Diagnosis Inflamed acrochordon- Primary Unspecified hypertrophic and atrophic condition of skin Seborrheic keratoses, inflamed Inflamed seborrheic keratosis [facility] encounter [facility]* Diagnosis Encounter for post surgical wound check- Primary [facility]* Diagnosis Near syncope- Primary Syncope and collapse Fall, initial encounter Acute upper respiratory infection Acute upper respiratory infections of unspecified site Morbid obesity (HCC) Morbid obesity [facility]* Diagnosis Essential hypertension- Primary Unspecified essential hypertension Encounter for immunization Need for other specified prophylactic vaccination against single bacterial disease Paroxysmal atrial fibrillation (HCC) Atrial fibrillation Mixed hyperlipidemia Schizophrenia, 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, chronic condition Chronic anticoagulation Long-term (current) use of anticoagulants Type 2 diabetes mellitus with microalbuminuria, with long-term current use of insulin ([facility]) Restrictive lung disease Other diseases of lung, not elsewhere classified documented [facility]* Diagnosis Diarrhea, unspecified type [facility]* Diagnosis Viral URI with cough- Primary Acute upper respiratory infections of unspecified site Suspected COVID-19 virus infection Bronchitis Bronchitis, not specified as acute or chronic documented [facility] Diagnosis Nausea Nausea alone documented [facility] noteNo assessment information availableWMercy [facility] Work Phone: Evaluation note* Diagnosis Acute hip pain, right- Primary [facility]* Diagnosis Pure hypercholesterolemia documented [facility]* Diagnosis Essential hypertension Unspecified essential hypertension [facility]* Diagnosis Type 2 diabetes mellitus without complication, with long-term current use of insulin (HCC)- Primary [facility]* Diagnosis Paroxysmal atrial fibrillation (HCC)- Primary [...] of insulin (HCC) documented [facility]* Diagnosis Paroxysmal atrial fibrillation (HCC)- Primary Atrial fibrillation Restrictive lung disease Other diseases of lung, not elsewhere classified Pain of right hip Psoriatic arthritis (HCC) Psoriatic arthropathy [facility]* Diagnosis Viral URI with cough Acute upper respiratory infections of unspecified site Bronchitis Bronchitis, not specified as acute or chronic documented [facility]* Diagnosis Nausea Nausea alone [facility]* Diagnosis SOB (shortness of breath)- Primary Shortness of breath Bilateral leg edema Edema Weight increase Abnormal weight gain [facility]* Diagnosis 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 Venous incompetence Unspecified venous (peripheral) insufficiency Bilateral leg edema Edema SOB (shortness of breath) Shortness of breath Weight gain Abnormal weight gain CJ (obstructive sleep apnea) Obstructive sleep apnea (adult) (pediatric) Hypersomnolence Hypersomnia, unspecified Cushingoid facies Other ill-defined conditions [facility]* Diagnosis Venous incompetence- Primary Unspecified venous (peripheral) insufficiency Lymphedema of left leg Other lymphedema Varicose veins of both legs with edema [facility]* Diagnosis Abrasion of left hand, initial encounter- Primary [facility]* Diagnosis Encounter for medical assessment- Primary [facility] Diagnosis Essential hypertension Unspecified essential hypertension [facility]* Diagnosis SOB (shortness of breath) Shortness of breath Bilateral leg edema Edema Weight increase Abnormal weight gain [facility]* Diagnosis Generalized weakness- Primary Other malaise and fatigue documented [facility]* Diagnosis Sinobronchitis Unspecified sinusitis (chronic) documented [facility]* Diagnosis Viral URI with cough Acute upper respiratory infections of unspecified site Bronchitis Bronchitis, not specified as acute or chronic [facility]* Diagnosis Acute hip pain, right documented [facility]* Diagnosis Acute left ankle pain documented in this encounter [facility] note* Diagnosis Diarrhea, unspecified type [facility]* Diagnosis Rib pain Chest pain, unspecified documented in this encounter [facility] note* Diagnosis SOB (shortness of breath) Shortness of breath documented in this encounter [facility] note* Diagnosis Essential hypertension- Primary Unspecified [...] arthropathy documented in this encounter [facility] note* Diagnosis Snoring- Primary Other dyspnea and respiratory abnormality Witnessed episode of apnea Nocturnal leg movements Abnormal involuntary movements Frequent nocturnal awakening Other sleep disturbances Nocturia documented in this encounter [facility] note* Diagnosis Type 2 diabetes mellitus [...] deficiencies documented in this encounter [facility] note* Diagnosis Nausea Nausea alone documented in this encounter [facility] note* Diagnosis Chronic respiratory failure with hypoxia (HCC)- Primary Chronic respiratory failure [facility]* Diagnosis Systolic congestive heart failure, unspecified HF chronicity (HCC) documented in this encounter [facility] note* Diagnosis Systolic congestive heart failure, unspecified HF chronicity (HCC) documented in this encounter [facility] note* Diagnosis Pure hypercholesterolemia documented in this encounter [facility] note* Diagnosis Dizziness- Primary Dizziness and giddiness Chest pain, unspecified type documented in this encounter [facility] note* Diagnosis Type 2 diabetes mellitus without complication, with long-term current use of insulin (HCC) documented [facility]* Diagnosis 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 [facility]* Diagnosis Essential hypertension- Primary Unspecified essential hypertension Paroxysmal atrial fibrillation (HCC) Atrial fibrillation Dizziness Dizziness and giddiness Systolic congestive heart failure, unspecified HF chronicity (HCC) documented in this encounter [facility] note* Diagnosis 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 Essential hypertension Unspecified essential hypertension documented in this encounter [facility] note* Diagnosis Essential hypertension Unspecified essential hypertension [facility]* Diagnosis 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 Nonobstructive atherosclerosis of coronary artery Pure hypercholesterolemia documented [facility]* Diagnosis Acute diastolic CHF (congestive heart [...] hypertension documented in this encounter [facility] note* Diagnosis 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, macular edema presence unspecified, unspecified retinopathy severity (HCC) [facility] Diagnosis Contusion of left foot, subsequent encounter- Primary Foot pain, left Pain in limb Contusion of left foot, subsequent encounter Foot pain, left Pain in limb [facility] Diagnosis Contusion of left foot, subsequent encounter Foot pain, left Pain in limb [facility] Diagnosis Closed fracture of foot, unspecified laterality, initial encounter- Primary [facility]* Diagnosis Closed fracture of foot, unspecified laterality, initial encounter [facility] Diagnosis Closed fracture of foot, unspecified laterality, initial encounter [facility]* Diagnosis Essential hypertension- Primary Unspecified essential hypertension Nausea Nausea alone 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) documented [facility]* Diagnosis Paroxysmal atrial fibrillation (HCC) Atrial fibrillation 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) documented [facility]* Diagnosis 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) [facility] Additional Instructions Please continue all of your home medications as previously directed but keep yourself well-hydrated as your exam and laboratory studies showed elevation to your kidney function consistent with dehydration. If you have any further concerns please return the hospital for repeat evaluationWMercy Memorial Hospital Work Phone: Progress note Author Tierra Gilbert [facility] Note Date/Time June 11, 2025 12:01pm [facility] [address] [place] [address]. [address] [place] [address] OFFICE VISIT Date of Service: 06/11/25 MR#: [id number] Acct: [id number] Name: FAISAL ALARCON Rep #: [id number] : 1945 Provider: CASIMIRO Obrien Age/Sex: 80/M Location: [facility] Status: Signed HPI HPI History of Present Illness Details: Faisal Alarcon is an 80-year-old male who presents to the office today for hospital follow-up. Patient has a history of right bundle branch block, nonobstructive coronary artery disease, hypertension and hyperlipidemia. Patient was admitted to [facility] in July 2024 for shortness of breath and treated for fluid overload. Echocardiogram showed ejection fraction of 70% with stage II diastolic dysfunction, severe left atrialenlargement, RVSP was 50 mmHg. He was discharged with initiation of Jardiance and Lasix and discontinuation of his hydrochlorothiazide. He also has CJ and isusing a CPAP with O2. Patient was seen in the emergency department in January 2025 for chest pain and cardiac workup was negative. Patient presented to [facility] 04/29/2025 with concerns of syncope. Daughter reports that he was evaluated and they were told it was likely secondary to dehydration. Echocardiogram demonstrated an ejection fraction of 60%, mild LVH, mild?moderate aortic valve stenosis. Stress test wasnegative for ischemia or infarction. His coreg was decreased to 12.5 mg BID. Patient was admitted to [facility] on May 31, 2025 for chest pain. Troponins trended 68/59/53. He had a stress test from a previous hospital stay in April 2025 that was negative for ischemia. Echocardiogram done in April 2025 demonstrated moderate aortic stenosis. No changes were madeto his medications during his hospital stay in May 2025. Daughter had called after this hospital stay concerned about weight gain and needing to give his diuretic every other day. proBNP was 121. He did return his HM this past Sunday. I do not have the results yet. Since his hospital stay he does sometimes have a chest ache. He sts that it just started today. It is similar to what he has had. He does have SOB with exertion. He does wear his O2 at night. He does does not have any palpitations. He does complain of issues with constipation. Intake Vital Signs 12/11/24 13:10 06/01/25 10:53 06/11/25 11:18 06/11/25 11:54 Height 6 ft 1 in 6 ft 1 in 6 ft 1 in Weight: 250 lb BMI 33.0 BP 96/59 L 100/60 Blood Pressure Location Rt brachial Position Sitting Respiration 20 H Pulse 74 Pulse Source NIBP Pulse Oximetry (%) 94 Oxygen Delivery Method room air Intake Visit Reasons: 6 M FU Accompanied by: Daughter Is patient in pain?: No Allergies amoxicillin Allergy (Verified 06/11/25 11:23) Rash Medications ?Medication ?Instructions ?Recorded ?Confirmed ?Type metformin 500 mg tablet,extended 1,000 mg PO BID blood sugar 10/24/21 06/11/25 History release 24 hr albuterol sulfate 90 mcg/actuation 1 inh inhalation Q6 H PRN SOB #8.5 11/30/21 06/11/25 Rx aerosol inhaler grams finasteride 5 mg tablet 5 mg PO DAILY bph 10/27/22 0 06/11/25 History insulin glargine 100 unit/mL (3 40 unit subcut .COMPLE X diabetes 09/22/23 06/11/25 History mL) subcutaneous pen (Basaglar KwikPen U-100 Insulin) turmeric root extract 500 mg 1,000 mg PO DAILY viatmin 10/24/23 06/11/25 History capsule diltiazem HCl 120 mg 120 mg PO DAILY heart 06/11/25 History capsule,extended release 24 hr (Cartia XT) tamsulosin 0.4 mg capsule 0.4 mg PO BID bph 07/10/24 0 06/11/25 History cholecalciferol (vitamin D3) 50 2,000 unit PO DAILY myles pplement 07/22/24 06/11/25 History mcg (2,000 unit) capsule (Vitamin D3) solifenacin 10 mg tablet 10 mg PO DAILY bladder 07/2206/11/25 History empagliflozin 25 mg tablet 25 mg PO DAILY diabetes #30 tabs 07/25/24 06/11/25 Rx (Jardiance) flecainide 100 mg tablet 100 mg PO Q12H heart #180 ta bs 08/13/24 06/11/25 Rx atorvastatin 20 mg tablet 20 mg PO DAILY cholesterol 1 11/02/23 06/11/25 History spironolactone 25 mg tablet 25 mg PO DAILY diuretic #3 0 tabs 09/23/24 06/11/25 Rx isosorbide mononitrate 30 mg 30 mg PO DAILY heart #90 tabs 10/22/24 06/11/25 Rx tablet,extended release 24 hr insulin aspart 26 unit subcut TID diabetes 01/19/25 06/11/25 History (niacinamide)(U-100) 100 unit/mL(3 mL) subcutaneous pen (Fiasp FlexTouch U-100 Insulin) mecobalamin (vitamin B12) 1,000 1,000 mcg PO DAILY vit cottrell 01/19/25 06/11/25 History mcg chewable tablet ferrous gluconate 324 mg (37.5 mg 324 mg PO DAILY 30 d ays 04/30/25 06/11/25 Rx iron) tablet furosemide 40 mg tablet (Lasix) 40 mg PO PRN 05/22/25 06/11/25 History apixaban 5 mg tablet (Eliquis) 5 mg PO BID BLOOD THINN ER 05/31/25 06/11/25 History pantoprazole 40 mg tablet,delayed 40 mg PO DAILY #30 t abs 06/01/25 06/11/25 Rx release (Protonix) carvedilol 25 mg tablet 12.5 mg PO BID 06/11/2505/19 History Ejection fraction %: 65 Have you fallen in the past year?: Yes PFSH Medical History History of CAD (coronary artery disease) Paroxysmal atrial fibrillation Chronic pain Kidney stones GERD (gastroesophageal reflux [...] (primary) hypertension Atrial fibrillation with RVR (02/05/21) Surgical History Bladder disease Hx of right cataract extraction Hx of colonoscopy Hx of transurethral resection of prostate H/O wrist surgery History of left heart catheterization (02/07/21) Hx of umbilical hernia repair Hx of cholecystectomy Status post surgical manipulation of ankle joint H/O hemorrhoidectomy Family History Sister Colon cancer Brother Diabetes Mother Diabetes Heart disease Cancer Father Heart disease Cancer Diabetes Social History household members: spouse Smoking Status: Former smoker how long ago did patient quit smokin years ago alcohol intake: never substance use type: does not use caffeine: Yes Type: coffee Number of servings: 1 ROS Const Const: Positive for fatigue, weakness and daytime sleepiness; Negative for headache(s) or frequent falls Eyes Eyes: Negative for blurry vision ENT ENT: Positive for balance problems; Negative for headache(s), dizziness, tinnitus or Nosebleed/epistaxis Cardio Chest Pain: No Palpitations: No Edema: None Muscle aches with walking: None Resp Respiratory: Positive for SOB with activity; Negative for SOB at rest, SOB orthopnea\SOB lying down, Cough or chest congestion GI GI: Negative nausea, vomiting, heartburn, bright, red blood in stools or black,tarry stools : Negative for hematuria Musc Musc: Positive for balance problems Neuro Neuro: Positive for weakness; Negative for dizziness, lightheadedness, near syncope, syncope, frequent falls, headache(s) or blurry vision Endo Endo: Positive for fatigue Cardiology Exam Const Appearance: cooperative, comfortable, no acute distress and well developed; Negative diaphoretic or ill appearing Nutritional Appearance: obese Orientation: alert and oriented x3 Ambulating via electric scooter Head Head: normal to inspection, normocephalic and atraumatic Ears: hearing grossly normal bilaterally Nose: external nose normal and Negative epistaxis Face and Sinus: face symmetric Eyes General: appearance normal, both eyes and all related structures Eyelids: eyelids normal Conjunctivae: conjunctivae normal; Negative scleral icterus EOM: EOM intact bilaterally Neck Neck: no JVD Carotids: normal carotid upstroke; Negative bruit Neck Mass: Negative Neck mass Chest Chest inspection: normal respiratory effort; Negative respiratory distress, audible wheezes or tachypneic Auscultation: Bilateral: Clear to Auscultation Cardio Rate: regular rate Rhythm: regular rhythm Heart sounds: S1 normal and S2 normal; Negative rub or gallop Murmur: Grade 1/6, soft, holosystolic and VALERY loudest primary aortic area GI GI: obese Neuro General: patient alert, patient awake, patient oriented x3 and moves all extremities Skin Skin: no rashes or lesions noted Extremities Pulses: Normal: Right Posterior Tibial Pulse, Left Posterior Tibial Pulse, RightRadial Pulse and Left Radial Pulse Lower Extremity Edema: None: Bilateral Psych Psychological: normal affect Supplemental Info Supplemental Information Echo Complete 04/30/2025 Interpretation Summary Normal LV size. Mild concentric [...] gradient from previously 11 to currently 17 Echocardiogram 07/23/2024 Interpretation Summary The left ventricular ejection fraction is 70 %. Stage 2 diastolic dysfunction. The left atrium is severely enlarged. Mild (1+) mitral valve insufficiency. Mild tricuspid valve insufficiency. Right ventricular systolic pressure estimated to be 50 mmHg. Mild aortic stenosis. Pharmacological myocardial perfusion stress test 04/30/2025 Gated SPECT analysis: The gated ejection fraction is [ 75]%. Conclusion: [Normal] pharmacologic myocardial perfusion stress test. No evidence of ischemia or infarction [Preserved normal LV ejection fraction. Underlying sinus bradycardia with bifascicular block CORONARY ANGIOGRAPHY 02/07/2021: CONCLUSIONS Mild nonobstructive CAD. Preserved left ventricular function. Atrial fibrillation. DOMINANCE: Right Dominant LEFT HEART ASSESSMENT Left Ventricular Ejection Fraction: by LV Gram 65 % Normal LV wall motion Normal Left Ventricular systolic function LEFT MAIN: Non-obstructive LEFT ANTERIOR DESCENDING ARTERY: PROX LAD: smooth 40 % Stenosis CIRCUMFLEX ARTERY: Mild luminal irregularities RIGHT CORONARY ARTERY: Mild luminal irregularities Labs: LDL Cholesterol, (0-130) 56 mg/dL HDL Cholesterol, (40-) 36 mg/dL L Cholesterol, (<=200) 110 mg/dL Triglycerides, (-199) 108 mg/dL Diagnostics: Electrocardiogram Echocardiogram Stress Test Stress Test Nuclear Medicine Cardiac Catheterization Chest X-Ray Chest CTA Abdomen Ultrasound Abdomen/Pelvis CT Carotid Duplex Pulmonary: Pulmonary Function Test Pulmonary Exercise Test Past Visits: Cardiology Visit Today Assessment and Plan Assessment and Plan (1) Syncope: Status: Resolved Qualifiers: Syncope type: unspecified Qualified Code(s): R55 - Syncope and collapse Plan: Holter monitor is still pending. Patient has not had any lightheadedness or dizziness since his hospital stay in April 2025. With his low blood pressure readings we will likely stop his diltiazem. He is keeping himself hydrated with an adequate amount of water. Plan: Will decrease carvedilol to 12.5 mg twice daily, discontinued furosemide. Asked patient to monitor his weight daily and notify our office with weight gain of 3 pounds in 1 day or 5 pounds in 1 week. Patient was asked to monitor his blood pressure in his home environment over the next 2 weeks and notify our office with persistently elevated or low readings. Would like to obtain a 48-hour Holter monitor. (2) Hyperlipidemia: Status: Chronic Qualifiers: Hyperlipidemia type: other hyperlipidemia Qualified Code(s): E78.49 - Other hyperlipidemia Plan: Patient has a history of hyperlipidemia. Most recent lipid panel 11/28/2024 demonstrates total cholesterol 110, triglyceride 108, LDL 52 and HDL 36. This appears controlled at this time. Plan: Recommend patient continue atorvastatin nightly. Encourage lifestyle and risk factor modification. (3) Essential (primary) hypertension: Status: Chronic Plan: Blood pressure is on the low side. Systolics are still around the 100. After I have Holter monitor we will call patient back. Feel that we will likely be stopping his diltiazem. (4) Right bundle branch 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: Status: Chronic Plan: Patient has a known right bundle branch block. EKG in office today demonstrates sinus rhythm with first-degree AV block with known right bundle branch block. (5) Nonobstructive atherosclerosis of coronary artery: Status: Chronic Plan: Patient has a history of nonobstructive coronary artery disease. Cardiac catheterization 02/03/2021 demonstrated 40% stenosis of the proximal LAD and mild luminal irregularities in the circumflex artery and the RCA. His stress test 04/30/2025 was negative for ischemia or infarction. Plan: Recommend patient continue atorvastatin. Encouraged lifestyle and risk factor modification. (6) Aortic stenosis: Status: Acute Qualifiers: Cardiac valve disease etiology: nonrheumatic Qualified Code(s): I35.0 - Nonrheumatic aortic (valve) stenosis Plan: Echocardiogram 04/29/2025 demonstrates trileaflet aortic valve, mild diffuse aortic valve thickening, mild focal aortic valve calcification, mild to moderate aortic stenosis with a peak aortic valve gradient of 34 mmHg and a mean aortic valve gradient of 17 mmHg. Plan: Will continue to monitor with history, physical exam and echocardiograms as deemed appropriate. Orders: Orders 12 Lead EKG performed by [facility] Today Z86.79 - Personal history of other diseases of the circulatory system Patient Instructions: I will look for your monitor. Based on findings I will call you back. We may consider decreasing your carvedilol or stopping your diltiazem because her blood pressure is on the low side today. 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 Nonobstructive atherosclerosis of coronary artery I25.10 Nonrheumatic aortic valve stenosis I35.0 Cardiac valve disease etiology: nonrheumatic Coding Level of Care Code Off vis,est,level 4 Diagnoses Syncope, unspecified syncope type R55 Syncope type: unspecified Other hyperlipidemia E78.49 Hyperlipidemia type: other hyperlipidemia Essential (primary) hypertension 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 Mathieu Virgen MD ~ [facility] [employer] Work Phone: Reason for referral (narrative)* Diagnostic Procedure Only (Urgent) - Closed Specialty Diagnoses / Procedures [facility]erred To Contact XR IMAGING Diagnoses Acute left ankle pain Procedures XR ANKLE GENERAL 3V AP/LAT/OBL LEFT RADEX ANKLE COMPLETE MINIMUM 3 VIEWS Denisha Shepard APRN.CNP [address] [place] [address] Xr Imaging Referral ID Status Reason Start Date Expiration Date V isits Requested Visits Authorized [id number] Closed Auto-Generate d Referral 02/16/2023 03/17/2024 1 1 [facility] for referral (narrative)* Outpatient Procedure (Routine) - Authorized Specialty Diagnoses / Procedures [facility] [facility] Diagnoses Near syncope Fall, initial encounter Procedures ECG COMPLETE ECG ROUTINE ECG W/LEAST 12 LDS W/I&R Osvaldo Travis PA-C [address] [place] [address] [facility] [place] [address] [place] [address] Referral ID Status Reason Start Date Expiration Date Visits Requested Visits Authorized [id number] Authorized Auto-Generat ed Referral 05/18/2023 05/17/2024 1 1 [facility] for referral (narrative)* Diagnostic Procedure Only (Routine) - Closed Specialty Diagnoses / Procedures [facility] X[facility] Diagnoses Acute hip pain, right Procedures XR HIP GENERAL 3V PELV/AP/LAT RIGHT RADEX HIP UNILATERAL WITH PELVIS 2-3 VIEWS Pio Nicole MD [address] [place] [address] [place] [address] Referral ID Status Reason Start Date Expiration Date V isits Requested Visits Authorized [id number] Closed Auto-Generate d Referral 07/23/2023 08/21/2024 1 1 [facility] for referral (narrative)* Outpatient Procedure (Routine) - Pending Review Specialty Diagnoses / Procedures Referred By Contac t Referred To Contact [facility] Diagnoses SOB (shortness of breath) Bilateral leg edema Weight increase Procedures ECG COMPLETE ECG ROUTINE ECG W/LEAST 12 LDS W/I&R Osvaldo Travis PA-C [address] [place] [address] [address] Referral ID Status Reason Start Date Expiration Date Visits Requested Visits Authorized [id number] Pending Review Auto-Generat ed Referral 02/04/2024 02/03/2025 1 1 [facility] for referral (narrative)* Outpatient Procedure (Routine) - Pending Review Specialty Diagnoses / Procedures Referred By Contac t Referred To Contact [facility] Diagnoses Varicose veins of both lower extremities with inflammation Procedures US VENOUS INCOMPETENCY KARON VAS LAB DUP-SCAN XTR VEINS COMPLETE BILATERAL STUDY Osvaldo Travis PA-C [address] [place] [address] [address] Referral ID Status Reason Start Date Expiration Date Visits Requested Visits Authorized [id number] Pending Review Auto-Generat ed Referral 02/28/2024 02/27/2025 1 1 * Consult, Test, Treat (Routine) - Authorized Specialty Diagnoses / Procedures Referred By Contac t Referred To Contact Diagnoses CJ (obstructive sleep apnea) Hypersomnolence Procedures CONSULT TO SLEEP MEDICINE - ADULT OFFICE/OUTPATIENT [facility] 60 MINUTES Osvaldo Travis PA-C [address] [place] [address] Referral ID Status Reason Start Date Expiration Date Visits Requested Visits Authorized [id number] Authorized PCP Requested Referral 02/28/2024 02/27/2025 1 1 * Outpatient Procedure (Routine) - Authorized Specialty Diagnoses / Procedures Referred By [facility]ac t Referred [facility] Diagnoses Bilateral leg edema SOB (shortness of breath) Weight gain Procedures ECHO ECHO TTHRC R-T 2D W/WOM-MODE COMPL SPEC&COLR Osvaldo Rojas PA-C [address] [place] [address] [facility] [place] [address] [place] [address] Referral ID Status Reason Start Date Expiration Date Visits Requested Visits Authorized [id number] Authorized Auto-Generat ed Referral 02/28/2024 02/27/2025 1 1 [facility] for referral (narrative)* Diagnostic Procedure Only (Routine) - Closed Specialty Diagnoses / Procedures Referred By Contac t Referred To Contact XR IMAGING Diagnoses Acute hip pain, right Procedures XR HIP GENERAL 3V PELV/AP/LAT RIGHT RADEX HIP UNILATERAL WITH PELVIS 2-3 VIEWS Pio Nicole MD [address] [place] [address] [place] [address] Referral ID Status Reason Start Date Expiration Date V isits Requested Visits Authorized [id number] Closed Auto-Generate d Referral 07/23/2023 08/21/2024 1 1 [facility] for referral (narrative)* Diagnostic Procedure Only (Urgent) - Closed Specialty Diagnoses / Procedures Referred By Contac t Referred To Contact XR IMAGING Diagnoses Acute left ankle pain Procedures XR ANKLE GENERAL 3V AP/LAT/OBL LEFT RADEX ANKLE COMPLETE MINIMUM 3 VIEWS Denisha Shepard APRN.[employer] ENGINEER [address] [place] [address] [place] [address] Referral ID Status Reason Start Date Expiration Date V isits Requested Visits Authorized [id number] Closed Auto-Generate d Referral 02/16/2023 03/17/2024 1 1 [facility] for referral (narrative)* Diagnostic Procedure Only (Routine) - Closed Specialty Diagnoses / Procedures Referred By Contac t Referred To Contact XR IMAGING Diagnoses Rib pain Procedures XR RIBS/CHEST 3V AP RIB/OBLS/CXR RT X-RAY RIBS, CHEST 3+ VW Mathieu Virgen MD [address] [place] [address] [place] [address] Referral ID Status Reason Start Date Expiration Date V isits Requested Visits Authorized [id number] Closed Auto-Generate d Referral 05/25/2021 09/16/2021 99 99 [facility] for referral (narrative)No reason for referral information [facility] Narrative* Diagnostic Procedure Only (Routine) - Closed Specialty Diagnoses / Procedures Referred By Contac t Referred To Contact XR IMAGING Diagnoses Acute hip pain, right Procedures XR HIP GENERAL 3V PELV/AP/LAT RIGHT RADEX HIP UNILATERAL WITH PELVIS 2-3 VIEWS Pio Nicole MD [address] [place] [address] [place] [address] Referral ID Status Reason Start Date Expiration Date V isits Requested Visits Authorized [id number] Closed Auto-Generate d Referral 07/23/2023 08/21/2024 1 1 [facility] for visit Narrative* Diagnostic Procedure Only (Urgent) - Closed Specialty Diagnoses / Procedures Referred By Contac t Referred To Contact XR IMAGING Diagnoses Acute left ankle pain Procedures XR ANKLE GENERAL 3V AP/LAT/OBL LEFT RADEX ANKLE COMPLETE MINIMUM 3 VIEWS Denisha Shepard APRN.CNP [address] [place] [address] [place] [address] Referral ID Status Reason Start Date Expiration Date V isits Requested Visits Authorized [id number] Closed Auto-Generate d Referral 02/16/2023 03/17/2024 1 1 [facility] for visit Narrative* Diagnostic Procedure Only (Routine) - Closed Specialty Diagnoses / Procedures Referred By Contac t Referred To Contact XR IMAGING Diagnoses Rib pain Procedures XR RIBS/CHEST 3V AP RIB/OBLS/CXR RT X-RAY RIBS, CHEST 3+ VW Mathieu Virgen MD [address] [place] [address] [place] [address] Referral ID Status Reason Start Date Expiration Date V isits Requested Visits Authorized [id number] Closed Auto-Generate d Referral 05/25/2021 09/16/2021 99 99 [facility] for visit Narrative* Diagnostic Procedure Only (Urgent) - Closed Specialty Diagnoses / Procedures Referred By Contac t Referred To Contact XR IMAGING Diagnoses Contusion of left foot, subsequent encounter Foot pain, left Procedures XR FOOT GENERAL 3V AP/LAT/OBL LEFT RADEX FOOT COMPLETE MINIMUM 3 VIEWS Mathieu Virgen MD [address] [place] [address] Phone: tel: fax: [place] [address] Referral ID Status Reason Start Date Expiration Date V isits Requested Visits Authorized [id number] Closed Auto-Generate d Referral 01/12/2025 02/11/2026 1 1 [facility] for visit Narrative* Diagnostic Procedure Only (Routine) - Closed Specialty Diagnoses / Procedures Referred By Contac t Referred To Contact XR IMAGING Diagnoses Closed fracture of foot, unspecified laterality, initial encounter Procedures XR FOOT GENERAL 3V AP/LAT/OBL LEFT RADEX FOOT COMPLETE MINIMUM 3 VIEWS Jamal Mace [address] [place] [address] Phone: tel: fax: [place] [address] Referral ID Status Reason Start Date Expiration Date V isits Requested Visits Authorized [id number] Closed Auto-Generate d Referral 01/22/2025 02/21/2026 1 1 [facility] Advance Directives No Advanced Directives Records FoundDocuments on File Type Date Recorded 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 anation Advance Directive(s) Advance Directive(s) 03/14/2021 10:51 AM Documents on File Type Date Recorded 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 anation Advance Directive(s) Advance Directive(s) 03/14/2021 10:51 AM Advance Directive Response Recorded Date/ Time Living Will No October 26 12:42pm Power of Acid Retort Operator Yes October 26, 2021 12:42pm Advance Directive Response Recorded Date/ Time Name of Medical Power of Acid Retort Operator farida harrisr April 08, 2022 4:03pm Living Will Yes April 08, 2022 4:03pm Power of Acid Retort Operator Yes April 08 4:03pm Documents on File Type Date Recorded 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 anation Advance Directive(s) 03/14/2021 10:51 AM Advance Directive Response Recorded Date/ Time Living Will No August 08 9:00am Power of Acid Retort Operator No August 08, 2022 9:00am Advance Directive Response Recorded Date/ Time Name of Medical Power of Acid Retort Operator Farida Harrisr November 21, 2022 8:28am Living Will Yes November 21, 2022 8:28am Power of Acid Retort Operator Yes November 21 8:28am Documents on File Type Date Recorded 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 anation Advance Directive(s) 03/14/2021 10:51 AM Advance Directive Response Recorded Date/ Time Name of Medical Power of Acid Retort Operator Farida Harrisr November 21, 2022 9:28am Name of Medical Power of Acid Retort Operator FÉLIX February 24, 2023 9:59pm Name of Medical Power of Acid Retort Operator Farida Harrisr March 01, 2023 9:06pm Living Will Yes March 01, 2023 9:06pm Power of Acid Retort Operator Yes March 01 9:06pm Advance Directive Response Recorded Date/ Time Name of Medical Power of Acid Retort Operator FÉLIX February 24, 2023 9:59pm Name of Medical Power of Acid Retort Operator Farida Harrisr March 01, 2023 9:06pm Name of Medical Power of Acid Retort Operator Farida Harrisr March 31, 2023 12:26am Living Will Yes March 31, 2023 12:26am Power of Acid Retort Operator Yes March 31 12:26am Advance Directive Response Recorded Date/ Time Living Will Yes March 31, 2023 12:26am Power of Acid Retort Operator Yes March 31 12:26am Name of Medical Power of Acid Retort Operator Farida Beck March 31, 2023 12:26am Advance Directive Response Recorded Date/ Time Living Will Yes September 22 10:15am Power of Acid Retort Operator Yes September 22 024 10:15am Name of Medical Power of Acid Retort Operator Farida September 22, 2023 10:15am Advance Directive Response Recorded Date/ Time Living Will Yes June 24 1:50am Do you have a Healthcare Pow er of Acid Retort Operator? Yes June 24, 2024 1:50am Living Will No September 20 4:50pm Do you have a Healthcare Pow er of Acid Retort Operator? Yes September 20, 2024 4:50pm Name of Medical Power of Acid Retort Operator FARIDA BECK September 20, 2024 4:50pm Living Will Yes November 03 025 1:12am Do you have a Healthcare Pow er of Acid Retort Operator? Yes November 03, 2024 1:12am Name of Medical Power of Acid Retort Operator daughter November 03, 2024 1:12am Living Will Yes September 01 5:43am Do you have a Healthcare Pow er of Acid Retort Operator? Yes September 01, 2024 5:43am Name of Medical Power of Acid Retort Operator oracio Davalosught er September 01, 2024 5:43am Advance Directive Response Recorded Date/ Time Living Will Yes September 22 11:15am Do you have a Healthcare Power of Acid Retort Operator? Yes September 22, 2023 11:15am Living Will Yes November 03 025 1:12am Do you have a Healthcare Power of Acid Retort Operator? Yes November 03, 2024 1:12am Name of Medical Power of Acid Retort Operator daughter November 03, 2024 1:12am Do you have a Healthcare Power of Acid Retort Operator? Yes January 19, 2025 11:33pm Advance Directive Response Recorded Date/ Time Living Will Yes September 22 11:15am Do you have a Healthcare Power of Acid Retort Operator? Yes September 22, 2023 11:15am Do you have a Healthcare Power of Acid Retort Operator? Yes January 19, 2025 11:33pm Advance Directive Response Recorded Date/ Time Do you have a Healthcare Power of Acid Retort Operator? Yes January 19, 2025 11:33pm Advance Directive Response Recorded Date/ Time Do you have a Healthcare Power of Acid Retort Operator? Yes January 19, 2025 11:33pm Do you have a Healthcare Power of Acid Retort Operator? Yes April 29, 2025 3:41pm Advance Directive Response Recorded Date/ Time Do you have a Healthcare Power of Acid Retort Operator? Yes January 19, 2025 11:33pm Do you have a Healthcare Power of Acid Retort Operator? Yes April 29, 2025 9:43pm Advance Directive Response Recorded Date/ Time Do you have a Healthcare Power of Acid Retort Operator? No May 31, 2025 11:11am Do you have a Healthcare Power of Acid Retort Operator? Yes April 29, 2025 9:43pm Advance Directive Response Recorded Date/ Time Do you have a Healthcare Power of Acid Retort Operator? Yes May 31, 2025 5:02pm Do you have a Healthcare Power of Acid Retort Operator? Yes April 29, 2025 9:43pm Reason for Referral Specialty Diagnoses / Procedures Referred By Contac t Referred To Contact Orthopedics Diagnoses Strain of calf muscle, right, initial encounter Procedures CONSULT TO ORTHOPAEDICS OFFICE/OUTPATIENT [facility] 60-74 MINUTES Saad Park APRN.CNP [address] [place] [address] Referral ID Status Reason Start Date Expiration Date Visits Requested Visits Authorized [id number] Pending Review PCP Requested Referral 01/27/2022 01/27/2023 1 1 Specialty Diagnoses / Procedures Referred By Contac t Referred To Contact [facility] Diagnoses Gastrocnemius tear, right, initial encounter Procedures CONSULT TO PHYSICAL THERAPY PHYSICAL THERAPY EVALUATION HIGH COMPLEX 45 MINS Papito Castano V, DO [address] [place] [address] [facility] [place] [address] [place] [address] Referral ID Status Reason Start Date Expiration Date Visits Requested Visits Authorized [id number] Pending Review Auto-Generat ed Referral 02/03/2022 02/03/2023 1 1 Specialty Diagnoses / Procedures Referred By Contac t Referred To Contact General Surgery Diagnoses Skin mass Procedures CONSULT TO GENERAL SURGERY OFFICE/OUTPATIENT [facility] 60-74 MINUTES Mathieu Virgen MD [address] [place] [address] Referral ID Status Reason Start Date Expiration Date Visits Requested Visits Authorized [id number] Pending Review PCP Requested Referral 01/19/2023 01/19/2024 1 1 Specialty Diagnoses / Procedures Referred By Contac t Referred To Contact Urology Diagnoses Benign prostatic hyperplasia with lower urinary tract symptoms, symptom details unspecified Urinary retention Procedures CONSULT TO UROLOGY Mathieu Virgen MD [address] [place] [address] Referral ID Status Reason Start Date Expiration Date Visits Requested Visits Authorized [id number] Ref Not Required PCP Requested Referral 03/02/2023 03/01/2024 1 1 Specialty Diagnoses / Procedures Referred By Alyac t Referred To Contact Ophthalmology Diagnoses Type 2 diabetes mellitus with microalbuminuria, with long-term current use of insulin (HCC) Procedures CONSULT TO OPHTHALMOLOGY OFFICE/OUTPATIENT [facility] 60-74 MINUTES Mathieu Virgen MD [address] [place] [address] Referral ID Status Reason Start Date Expiration Date Visits Requested Visits Authorized [id number] Pending Review PCP Requested Referral 06/06/2023 06/05/2024 1 1 Specialty Diagnoses / Procedures Referred By Shara t Referred To Contact [facility] Diagnoses Venous incompetence Lymphedema of left leg Varicose veins of both legs with edema Procedures CONSULT TO LYMPHEDEMA THERAPY OFFICE/OUTPATIENT [facility] 60 MINUTES Osvaldo Travis PA-C [address] [place] [address] [facility] [place] [address] [place] [address] Referral ID Status Reason Start Date Expiration Date Visits Requested Visits Authorized [id number] Authorized Auto-Generat ed Referral 03/21/2024 03/21/2025 1 [...] Pap compliance January 21, 2025 2:31pm [facility] 01/20January 26, 2025 9:38a m R06.02 [...] Pap compliance January 21, 2025 2:31pm [facility] 01/20January 26, 2025 9:38a m R06.02 [...] (primary) hypertension January 9:38am Nonobstructive atherosclerosis of frod ry artery January 26, 2025 9:38am Paroxysmal [...] Pap compliance January 21, 2025 2:31pm [facility] 01/20January 26, 2025 9:38a m R06.02 [...] Pap compliance January 21, 2025 2:31pm [facility] 01/20January 26, 2025 9:38a m R06.02 [...] Pap compliance January 21, 2025 2:31pm [facility] 01/20January 26, 2025 9:38a m R06.02 - Shortness of breath January 30, 025 9:25am R06.02 - Shortness of breath January 30 2 025 9:32am R09.02 - Hypoxemia February 26, 2025 1:35 pm R09.02 - Hypoxemia March 02, 2025 10:1 5am SOB April 01, 2025 3:40 pm 3 M FU April 08, 2025 9:06 am SYNCOPE April 29, 2025 7: 37pm Syncope April 30, 2025 10 :34am [facility] 04/30May 04, 2025 9: 43am Chief Complaint Admit Date R09.02 - Hypoxemia February 26, 2025 1:35 pm R09.02 - Hypoxemia March 02, 2025 10:1 5am SOB April 01, 2025 3:40 pm 3 M FU April 08, 2025 9:06 am SYNCOPE April 29, 2025 7: 37pm SYNCOPE April 30, 2025 10 :07am Syncope April 30, 2025 10 :34am Syncope April 30, 2025 3: 59pm [facility] 04/30May 04, 2025 9: 43am chest May 31, 2025 2:53pm CHEST PAIN May 31, 2025 2:56pm Reason for Visit Admit Date Anemia April 08, 2025 9:06 am History of atrial fibrillation March 9:06am Hypoxia April 08, 2025 9:06 am Obesity (BMI 30-39.9) April 08, 2025 9: 06am Obstructive sleep apnea April 08, 2025 9:06am Restrictive lung disease April 08, 2025 9:06am Shortness of breath on exertion March 9:06am Elevated troponin April 29, 2025 7: 37pm Medical non-compliance April 29, 2025 7:37pm Syncope April 29, 2025 7: 37pm History of CAD (coronary artery disease) April 29, 2025 7:37pm Paroxysmal atrial fibrillation April 292024 7:37pm Aortic stenosis [place] 18th, 2025 9: 43am Essential (primary) hypertension May 04, 2025 9:43am Hyperlipidemia May 04, 2025 9: 43am Nonobstructive atherosclerosis of ford ry artery May 04, 2025 9:43am Right bundle branch block (R BBB) with left anterior fascicular block May 04, 2025 9:43am Shortness of breath on exertion April 172024 9:43am Syncope May 04, 2025 9: 43am Paroxysmal atrial fibrillation May 042024 9:43am Chest pain May 31, 2025 2:56pm Elevated troponin May 31, 2025 2:56pm Chief Complaint Admit Date R09.02 - Hypoxemia February 26, 2025 1:35 pm R09.02 - Hypoxemia March 02, 2025 10:1 5am SOB April 01, 2025 3:40 pm 3 M FU April 08, 2025 9:06 am SYNCOPE April 29, 2025 7: 37pm SYNCOPE April 30, 2025 10 :07am Syncope April 30, 2025 10 :34am Syncope April 30, 2025 3: 59pm [facility] 04/30May 04, 2025 9: 43am chest May 31, 2025 2:53pm CHEST PAIN May 31, 2025 2:56pm CHEST PAIN June 01, 2025 8:47am Reason for Visit Admit Date Anemia April 08, 2025 9:06 am History of atrial fibrillation March 9:06am Hypoxia April 08, 2025 9:06 am Obesity (BMI 30-39.9) April 08, 2025 9: 06am Obstructive sleep apnea April 08, 2025 9:06am Restrictive lung disease April 08, 2025 9:06am Shortness of breath on exertion March 9:06am Elevated troponin April 29, 2025 7: 37pm Medical non-compliance April 29, 2025 7:37pm Syncope April 29, 2025 7: 37pm History of CAD (coronary artery disease) April 29, 2025 7:37pm Paroxysmal atrial fibrillation April 292024 7:37pm Aortic stenosis May 04, 2025 9: 43am Essential (primary) hypertension May 04, 2025 9:43am Hyperlipidemia May 04, 2025 9: 43am Nonobstructive atherosclerosis of ford ry artery May 04, 2025 9:43am Right bundle branch block (R BBB) with left anterior fascicular block May 04, 2025 9:43am Shortness of breath on exertion April 172024 9:43am Syncope May 04, 2025 9: 43am Paroxysmal atrial fibrillation May 042024 9:43am Aortic stenosis May 31, 2025 2:56pm Chest pain May 31, 2025 2:56pm Elevated troponin May 31, 2025 2:56pm History of atrial fibrillation May 31, 2025 2:56pm Chief Complaint Admit Date R09.02 - Hypoxemia February 26, 2025 1:35 pm R09.02 - Hypoxemia March 02, 2025 10:1 5am SOB April 01, 2025 3:40 pm 3 M FU April 08, 2025 9:06 am SYNCOPE April 29, 2025 7: 37pm SYNCOPE April 30, 2025 10 :07am Syncope April 30, 2025 10 :34am Syncope April 30, 2025 3: 59pm S[facility] 04/30May 04, 2025 9: 43am chest May 31, 2025 2:53pm CHEST PAIN May 31, 2025 2:56pm CHEST PAIN June 01, 2025 8:47am 6 M FU June 11, 2025 11:18am Reason for Visit Admit Date Anemia April 08, 2025 9:06 am History of atrial fibrillation March 9:06am Hypoxia April 08, 2025 9:06 am Obesity (BMI 30-39.9) April 08, 2025 9: 06am Obstructive sleep apnea April 08, 2025 9:06am Restrictive lung disease April 08, 2025 9:06am Shortness of breath on exertion March 9:06am Elevated troponin April 29, 2025 7: 37pm Medical non-compliance April 29, 2025 7:37pm Syncope April 29, 2025 7: 37pm History of CAD (coronary artery disease) April 29, 2025 7:37pm Paroxysmal atrial fibrillation April 292024 7:37pm Aortic stenosis May 04, 2025 9: 43am Essential (primary) hypertension May 04, 2025 9:43am Hyperlipidemia May 04, 2025 9: 43am Nonobstructive atherosclerosis of ford ry artery May 04, 2025 9:43am Right bundle branch block (R BBB) with left anterior fascicular block May 04, 2025 9:43am Shortness of breath on exertion April 172024 9:43am Syncope May 04, 2025 9: 43am Paroxysmal atrial fibrillation May 042024 9:43am Aortic stenosis May 31, 2025 2:56pm History of atrial fibrillation May 31, 2025 2:56pm Chest pain May 31, 2025 2:56pm Elevated troponin May 31, 2025 2:56pm Aortic stenosis June 11, 2025 11:18am Essential (primary) hypertension Sept2024 11:18am Hyperlipidemia June 11, 2025 11:18am Nonobstructive atherosclerosis of ford ry artery June 11, 2025 11:18am Right bundle branch block (R BBB) with left anterior fascicular block June 11, 2025 11:18am Syncope June 11, 2025 11:18am Chief Complaint Admit Date SOB April 01, 2025 3:40 pm 3 M FU April 08, 2025 9:06 am SYNCOPE April 29, 2025 7: 37pm SYNCOPE April 30, 2025 10 :07am Syncope April 30, 2025 10 :34am Syncope April 30, 2025 3: 59pm S/P [facility] 04/30May 04, 2025 9: 43am chest May 31, 2025 2:53pm CHEST PAIN May 31, 2025 2:56pm CHEST PAIN June 01, 2025 8:47am 6 M FU June 11, 2025 11:18am RESTRICTIVE LUNG DISEASE, SOB July 082024 12:54pm Family History No Family History Records Found [...] or prosecute any alcohol or drug abuse patient.[facility] the event this information is protected by the Federal Confidentiality of Alcohol and Drug Abuse Patient Records regulations: The Federal rules restrict any use of the information to criminally investigate or prosecute any alcohol or drug abuse patient.[facility] the event this information is protected by the Federal Confidentiality of Alcohol and Drug Abuse Patient Records regulations: The Federal rules restrict any use of the information to criminally investigate or prosecute any alcohol or drug abuse patient.[facility] the event this information is protected by the Federal Confidentiality of Alcohol and Drug Abuse Patient Records regulations: The Federal rules restrict any use of the information to criminally investigate or prosecute any alcohol or drug abuse patient.[facility] HospitalIn the event this information is protected by the Federal Confidentiality of Alcohol and Drug Abuse Patient Records regulations: The Federal rules restrict any use of the information to criminally investigate or prosecute any alcohol or drug abuse patient.[facility] Hospital[facility] the event this information is protected by the Federal Confidentiality of Alcohol and Drug Abuse Patient Records regulations: The Federal rules restrict any use of the information to criminally investigate or prosecute any alcohol or drug abuse patient.[facility] HospitalIn the event this information is protected by the Federal Confidentiality of Alcohol and Drug Abuse Patient Records regulations: The Federal rules restrict any use of the information to criminally investigate or prosecute any alcohol or drug abuse patient.[facility] the event this information is protected by the Federal Confidentiality of Alcohol and Drug Abuse Patient Records regulations: The Federal rules restrict any use of the information to criminally investigate or prosecute any alcohol or drug abuse patient.[facility]In the event this information is protected by the Federal Confidentiality of Alcohol and Drug Abuse Patient Records regulations: The Federal rules restrict any use of the information to criminally investigate or prosecute any alcohol or drug abuse patient.[facility]In the event this information is protected by the Federal Confidentiality of Alcohol and Drug Abuse Patient Records regulations: The Federal rules restrict any use of the information to criminally investigate or prosecute any alcohol or drug abuse patient.[facility]In the event this information is protected by the Federal Confidentiality of Alcohol and Drug Abuse Patient Records regulations: The Federal rules restrict any use of the information to criminally investigate or prosecute any alcohol or drug abuse patient.[facility]In the event this information is protected by the Federal Confidentiality of Alcohol and Drug Abuse Patient Records regulations: The Federal rules restrict any use of the information to criminally investigate or prosecute any alcohol or drug abuse patient.[facility] HospitalIn the event this information is protected by the Federal Confidentiality of Alcohol and Drug Abuse Patient Records regulations: The Federal rules restrict any use of the information to criminally investigate or prosecute any alcohol or drug abuse patient.[facility] HospitalIn the event this information is protected by the Federal Confidentiality of Alcohol and Drug Abuse Patient Records regulations: The Federal rules restrict any use of the information to criminally investigate or prosecute any alcohol or drug abuse patient.[facility] HospitalIn the event this information is protected by the Federal Confidentiality of Alcohol and Drug Abuse Patient Records regulations: The Federal rules restrict any use of the information to criminally investigate or prosecute any alcohol or drug abuse patient.[facility]In the event this information is protected by the Federal Confidentiality of Alcohol and Drug Abuse Patient Records regulations: The Federal rules restrict any use of the information to criminally investigate or prosecute any alcohol or drug abuse patient.[facility]In the event this information is protected by the Federal Confidentiality of Alcohol and Drug Abuse Patient Records regulations: The Federal rules restrict any use of the information to criminally investigate or prosecute any alcohol or drug abuse patient.[facility] HospitalIn the event this information is protected by the Federal Confidentiality of Alcohol and Drug Abuse Patient Records regulations: The Federal rules restrict any use of the information to criminally investigate or prosecute any alcohol or drug abuse patient.[facility]In the event this information is protected by the Federal Confidentiality of Alcohol and Drug Abuse Patient Records regulations: The Federal rules restrict any use of the information to criminally investigate or prosecute any alcohol or drug abuse patient.[facility]In the event this information is protected by the Federal Confidentiality of Alcohol and Drug Abuse Patient Records regulations: The Federal rules restrict any use of the information to criminally investigate or prosecute any alcohol or drug abuse patient.[facility]In the event this information is protected by the Federal Confidentiality of Alcohol and Drug Abuse Patient Records regulations: The Federal rules restrict any use of the information to criminally investigate or prosecute any alcohol or drug abuse patient.[facility] HospitalIn the event this information is protected by the Federal Confidentiality of Alcohol and Drug Abuse Patient Records regulations: The Federal rules restrict any use of the information to criminally investigate or prosecute any alcohol or drug abuse patient.[facility]In the event this information is protected by the Federal Confidentiality of Alcohol and Drug Abuse Patient Records regulations: The Federal rules restrict any use of the information to criminally investigate or prosecute any alcohol or drug abuse patient.[facility] HospitalIn the event this information is protected by the Federal Confidentiality of Alcohol and Drug Abuse Patient Records regulations: The Federal rules restrict any use of the information to criminally investigate or prosecute any alcohol or drug abuse patient.[facility] HospitalIn the event this information is protected by the Federal Confidentiality of Alcohol and Drug Abuse Patient Records regulations: The Federal rules restrict any use of the information to criminally investigate or prosecute any alcohol or drug abuse patient.[facility] HospitalIn the event this information is protected by the Federal Confidentiality of Alcohol and Drug Abuse Patient Records regulations: The Federal rules restrict any use of the information to criminally investigate or prosecute any alcohol or drug abuse patient.[facility] HospitalIn the event this information is protected by the Federal Confidentiality of Alcohol and Drug Abuse Patient Records regulations: The Federal rules restrict any use of the information to criminally investigate or prosecute any alcohol or drug abuse patient.[facility] HospitalIn the event this information is protected by the Federal Confidentiality of Alcohol and Drug Abuse Patient Records regulations: The Federal rules restrict any use of the information to criminally investigate or prosecute any alcohol or drug abuse patient.[facility] HospitalIn the event this information is protected by the Federal Confidentiality of Alcohol and Drug Abuse Patient Records regulations: The Federal rules restrict any use of the information to criminally investigate or prosecute any alcohol or drug abuse patient.[facility]In the event this information is protected by the Federal Confidentiality of Alcohol and Drug Abuse Patient Records regulations: The Federal rules restrict any use of the information to criminally investigate or prosecute any alcohol or drug abuse patient.[facility] HospitalIn the event this information is protected by the Federal Confidentiality of Alcohol and Drug Abuse Patient Records regulations: The Federal rules restrict any use of the information to criminally investigate or prosecute any alcohol or drug abuse patient.[facility] HospitalIn the event this information is protected by the Federal Confidentiality of Alcohol and Drug Abuse Patient Records regulations: The Federal rules restrict any use of the information to criminally investigate or prosecute any alcohol or drug abuse patient.[facility] HospitalIn the event this information is protected by the Federal Confidentiality of Alcohol and Drug Abuse Patient Records regulations: The Federal rules restrict any use of the information to criminally investigate or prosecute any alcohol or drug abuse patient.[facility] HospitalIn the event this information is protected by the Federal Confidentiality of Alcohol and Drug Abuse Patient Records regulations: The Federal rules restrict any use of the information to criminally investigate or prosecute any alcohol or drug abuse patient.[facility] HospitalIn the event this information is protected by the Federal Confidentiality of Alcohol and Drug Abuse Patient Records regulations: The Federal rules restrict any use of the information to criminally investigate or prosecute any alcohol or drug abuse patient.[facility] HospitalIn the event this information is protected by the Federal Confidentiality of Alcohol and Drug Abuse Patient Records regulations: The Federal rules restrict any use of the information to criminally investigate or prosecute any alcohol or drug abuse patient.[facility] HospitalIn the event this information is protected by the Federal Confidentiality of Alcohol and Drug Abuse Patient Records regulations: The Federal rules restrict any use of the information to criminally investigate or prosecute any alcohol or drug abuse patient.[facility] HospitalIn the event this information is protected by the Federal Confidentiality of Alcohol and Drug Abuse Patient Records regulations: The Federal rules restrict any use of the information to criminally investigate or prosecute any alcohol or drug abuse patient.[facility]In the event this information is protected by the Federal Confidentiality of Alcohol and Drug Abuse Patient Records regulations: The Federal rules restrict any use of the information to criminally investigate or prosecute any alcohol or drug abuse patient.[facility] HospitalIn the event this information is protected by the Federal Confidentiality of Alcohol and Drug Abuse Patient Records regulations: The Federal rules restrict any use of the information to criminally investigate or prosecute any alcohol or drug abuse patient.[facility] HospitalIn the event this information is protected by the Federal Confidentiality of Alcohol and Drug Abuse Patient Records regulations: The Federal rules restrict any use of the information to criminally investigate or prosecute any alcohol or drug abuse patient.[facility] HospitalIn the event this information is protected by the Federal Confidentiality of Alcohol and Drug Abuse Patient Records regulations: The Federal rules restrict any use of the information to criminally investigate or prosecute any alcohol or drug abuse patient.[facility]In the event this information is protected by the Federal Confidentiality of Alcohol and Drug Abuse Patient Records regulations: The Federal rules restrict any use of the information to criminally investigate or prosecute any alcohol or drug abuse patient.[facility]In the event this information is protected by the Federal Confidentiality of Alcohol and Drug Abuse Patient Records regulations: The Federal rules restrict any use of the information to criminally investigate or prosecute any alcohol or drug abuse patient.[facility]In the event this information is protected by the Federal Confidentiality of Alcohol and Drug Abuse Patient Records regulations: The Federal rules restrict any use of the information to criminally investigate or prosecute any alcohol or drug abuse patient.[facility]In the event this information is protected by the Federal Confidentiality of Alcohol and Drug Abuse Patient Records regulations: The Federal rules restrict any use of the information to criminally investigate or prosecute any alcohol or drug abuse patient.[facility]In the event this information is protected by the Federal Confidentiality of Alcohol and Drug Abuse Patient Records regulations: The Federal rules restrict any use of the information to criminally investigate or prosecute any alcohol or drug abuse patient.[facility]In the event this information is protected by the Federal Confidentiality of Alcohol and Drug Abuse Patient Records regulations: The Federal rules restrict any use of the information to criminally investigate or prosecute any alcohol or drug abuse patient.[facility]In the event this information is protected by the Federal Confidentiality of Alcohol and Drug Abuse Patient Records regulations: The Federal rules restrict any use of the information to criminally investigate or prosecute any alcohol or drug abuse patient.[facility] HospitalIn the event this information is protected by the Federal Confidentiality of Alcohol and Drug Abuse Patient Records regulations: The Federal rules restrict any use of the information to criminally investigate or prosecute any alcohol or drug abuse patient.[facility]In the event this information is protected by the Federal Confidentiality of Alcohol and Drug Abuse Patient Records regulations: The Federal rules restrict any use of the information to criminally investigate or prosecute any alcohol or drug abuse patient.[facility]In the event this information is protected by the Federal Confidentiality of Alcohol and Drug Abuse Patient Records regulations: The Federal rules restrict any use of the information to criminally investigate or prosecute any alcohol or drug abuse patient.[facility]In the event this information is protected by the Federal Confidentiality of Alcohol and Drug Abuse Patient Records regulations: The Federal rules restrict any use of the information to criminally investigate or prosecute any alcohol or drug abuse patient.[facility]In the event this information is protected by the Federal Confidentiality of Alcohol and Drug Abuse Patient Records regulations: The Federal rules restrict any use of the information to criminally investigate or prosecute any alcohol or drug abuse patient.[facility]In the event this information is protected by the Federal Confidentiality of Alcohol and Drug Abuse Patient Records regulations: The Federal rules restrict any use of the information to criminally investigate or prosecute any alcohol or drug abuse patient.[facility] HospitalIn the event this information is protected by the Federal Confidentiality of Alcohol and Drug Abuse Patient Records regulations: The Federal rules restrict any use of the information to criminally investigate or prosecute any alcohol or drug abuse patient.[facility] HospitalIn the event this information is protected by the Federal Confidentiality of Alcohol and Drug Abuse Patient Records regulations: The Federal rules restrict any use of the information to criminally investigate or prosecute any alcohol or drug abuse patient.[facility] HospitalIn the event this information is protected by the Federal Confidentiality of Alcohol and Drug Abuse Patient Records regulations: The Federal rules restrict any use of the information to criminally investigate or prosecute any alcohol or drug abuse patient.[facility]In the event this information is protected by the Federal Confidentiality of Alcohol and Drug Abuse Patient Records regulations: The Federal rules restrict any use of the information to criminally investigate or prosecute any alcohol or drug abuse patient.[facility]In the event this information is protected by the Federal Confidentiality of Alcohol and Drug Abuse Patient Records regulations: The Federal rules restrict any use of the information to criminally investigate or prosecute any alcohol or drug abuse patient.[facility]In the event this information is protected by the Federal Confidentiality of Alcohol and Drug Abuse Patient Records regulations: The Federal rules restrict any use of the information to criminally investigate or prosecute any alcohol or drug abuse patient.[facility]In the event this information is protected by the Federal Confidentiality of Alcohol and Drug Abuse Patient Records regulations: The Federal rules restrict any use of the information to criminally investigate or prosecute any alcohol or drug abuse patient.[facility]In the event this information is protected by the Federal Confidentiality of Alcohol and Drug Abuse Patient Records regulations: The Federal rules restrict any use of the information to criminally investigate or prosecute any alcohol or drug abuse patient.[facility]In the event this information is protected by the Federal Confidentiality of Alcohol and Drug Abuse Patient Records regulations: The Federal rules restrict any use of the information to criminally investigate or prosecute any alcohol or drug abuse patient.[facility]In the event this information is protected by the Federal Confidentiality of Alcohol and Drug Abuse Patient Records regulations: The Federal rules restrict any use of the information to criminally investigate or prosecute any alcohol or drug abuse patient.[facility]In the event this information is protected by the Federal Confidentiality of Alcohol and Drug Abuse Patient Records regulations: The Federal rules restrict any use of the information to criminally investigate or prosecute any alcohol or drug abuse patient.[facility]In the event this information is protected by the Federal Confidentiality of Alcohol and Drug Abuse Patient Records regulations: The Federal rules restrict any use of the information to criminally investigate or prosecute any alcohol or drug abuse patient.[facility]In the event this information is protected by the Federal Confidentiality of Alcohol and Drug Abuse Patient Records regulations: The Federal rules restrict any use of the information to criminally investigate or prosecute any alcohol or drug abuse patient.[facility]In the event this information is protected by the Federal Confidentiality of Alcohol and Drug Abuse Patient Records regulations: The Federal rules restrict any use of the information to criminally investigate or prosecute any alcohol or drug abuse patient.[facility]In the event this information is protected by the Federal Confidentiality of Alcohol and Drug Abuse Patient Records regulations: The Federal rules restrict any use of the information to criminally investigate or prosecute any alcohol or drug abuse patient.[facility]In the event this information is protected by the Federal Confidentiality of Alcohol and Drug Abuse Patient Records regulations: The Federal rules restrict any use of the information to criminally investigate or prosecute any alcohol or drug abuse patient.[facility]In the event this information is protected by the Federal Confidentiality of Alcohol and Drug Abuse Patient Records regulations: The Federal rules restrict any use of the information to criminally investigate or prosecute any alcohol or drug abuse patient.[facility]In the event this information is protected by the Federal Confidentiality of Alcohol and Drug Abuse Patient Records regulations: The Federal rules restrict any use of the information to criminally investigate or prosecute any alcohol or drug abuse patient.[facility]In the event this information is protected by the Federal Confidentiality of Alcohol and Drug Abuse Patient Records regulations: The Federal rules restrict any use of the information to criminally investigate or prosecute any alcohol or drug abuse patient.[facility]In the event this information is protected by the Federal Confidentiality of Alcohol and Drug Abuse Patient Records regulations: The Federal rules restrict any use of the information to criminally investigate or prosecute any alcohol or drug abuse patient.[facility]In the event this information is protected by the Federal Confidentiality of Alcohol and Drug Abuse Patient Records regulations: The Federal rules restrict any use of the information to criminally investigate or prosecute any alcohol or drug abuse patient.[facility]In the event this information is protected by the Federal Confidentiality of Alcohol and Drug Abuse Patient Records regulations: The Federal rules restrict any use of the information to criminally investigate or prosecute any alcohol or drug abuse patient.[facility]In the event this information is protected by the Federal Confidentiality of Alcohol and Drug Abuse Patient Records regulations: The Federal rules restrict any use of the information to criminally investigate or prosecute any alcohol or drug abuse patient.[facility]In the event this information is protected by the Federal Confidentiality of Alcohol and Drug Abuse Patient Records regulations: The Federal rules restrict any use of the information to criminally investigate or prosecute any alcohol or drug abuse patient.[facility]In the event this information is protected by the Federal Confidentiality of Alcohol and Drug Abuse Patient Records regulations: The Federal rules restrict any use of the information to criminally investigate or prosecute any alcohol or drug abuse patient.[facility]In the event this information is protected by the Federal Confidentiality of Alcohol and Drug Abuse Patient Records regulations: The Federal rules restrict any use of the information to criminally investigate or prosecute any alcohol or drug abuse patient.[facility]In the event this information is protected by the Federal Confidentiality of Alcohol and Drug Abuse Patient Records regulations: The Federal rules restrict any use of the information to criminally investigate or prosecute any alcohol or drug abuse patient.[facility]In the event this information is protected by the Federal Confidentiality of Alcohol and Drug Abuse Patient Records regulations: The Federal rules restrict any use of the information to criminally investigate or prosecute any alcohol or drug abuse patient.[facility]In the event this information is protected by the Federal Confidentiality of Alcohol and Drug Abuse Patient Records regulations: The Federal rules restrict any use of the information to criminally investigate or prosecute any alcohol or drug abuse patient.[facility]In the event this information is protected by the Federal Confidentiality of Alcohol and Drug Abuse Patient Records regulations: The Federal rules restrict any use of the information to criminally investigate or prosecute any alcohol or drug abuse patient.[facility]In the event this information is protected by the Federal Confidentiality of Alcohol and Drug Abuse Patient Records regulations: The Federal rules restrict any use of the information to criminally investigate or prosecute any alcohol or drug abuse patient.[facility]In the event this information is protected by the Federal Confidentiality of Alcohol and Drug Abuse Patient Records regulations: The Federal rules restrict any use of the information to criminally investigate or prosecute any alcohol or drug abuse patient.[facility]In the event this information is protected by the Federal Confidentiality of Alcohol and Drug Abuse Patient Records regulations: The Federal rules restrict any use of the information to criminally investigate or prosecute any alcohol or drug abuse patient.[facility]In the event this information is protected by the Federal Confidentiality of Alcohol and Drug Abuse Patient Records regulations: The Federal rules restrict any use of the information to criminally investigate or prosecute any alcohol or drug abuse patient.[facility]In the event this information is protected by the Federal Confidentiality of Alcohol and Drug Abuse Patient Records regulations: The Federal rules restrict any use of the information to criminally investigate or prosecute any alcohol or drug abuse patient.[facility]In the event this information is protected by the Federal Confidentiality of Alcohol and Drug Abuse Patient Records regulations: The Federal rules restrict any use of the information to criminally investigate or prosecute any alcohol or drug abuse patient.[facility]In the event this information is protected by the Federal Confidentiality of Alcohol and Drug Abuse Patient Records regulations: The Federal rules restrict any use of the information to criminally investigate or prosecute any alcohol or drug abuse patient.[facility]In the event this information is protected by the Federal Confidentiality of Alcohol and Drug Abuse Patient Records regulations: The Federal rules restrict any use of the information to criminally investigate or prosecute any alcohol or drug abuse patient.[facility]In the event this information is protected by the Federal Confidentiality of Alcohol and Drug Abuse Patient Records regulations: The Federal rules restrict any use of the information to criminally investigate or prosecute any alcohol or drug abuse patient.[facility] HospitalIn the event this information is protected by the Federal Confidentiality of Alcohol and Drug Abuse Patient Records regulations: The Federal rules restrict any use of the information to criminally investigate or prosecute any alcohol or drug abuse patient.[facility] HospitalIn the event this information is protected by the Federal Confidentiality of Alcohol and Drug Abuse Patient Records regulations: The Federal rules restrict any use of the information to criminally investigate or prosecute any alcohol or drug abuse patient.[facility] HospitalIn the event this information is protected by the Federal Confidentiality of Alcohol and Drug Abuse Patient Records regulations: The Federal rules restrict any use of the information to criminally investigate or prosecute any alcohol or drug abuse patient.[facility] HospitalIn the event this information is protected by the Federal Confidentiality of Alcohol and Drug Abuse Patient Records regulations: The Federal rules restrict any use of the information to criminally investigate or prosecute any alcohol or drug abuse patient.[facility] HospitalIn the event this information is protected by the Federal Confidentiality of Alcohol and Drug Abuse Patient Records regulations: The Federal rules restrict any use of the information to criminally investigate or prosecute any alcohol or drug abuse patient.[facility] HospitalIn the event this information is protected by the Federal Confidentiality of Alcohol and Drug Abuse Patient Records regulations: The Federal rules restrict any use of the information to criminally investigate or prosecute any alcohol or drug abuse patient.[facility] HospitalIn the event this information is protected by the Federal Confidentiality of Alcohol and Drug Abuse Patient Records regulations: The Federal rules restrict any use of the information to criminally investigate or prosecute any alcohol or drug abuse patient.[facility] HospitalIn the event this information is protected by the Federal Confidentiality of Alcohol and Drug Abuse Patient Records regulations: The Federal rules restrict any use of the information to criminally investigate or prosecute any alcohol or drug abuse patient.[facility] HospitalIn the event this information is protected by the Federal Confidentiality of Alcohol and Drug Abuse Patient Records regulations: The Federal rules restrict any use of the information to criminally investigate or prosecute any alcohol or drug abuse patient.[facility] HospitalIn the event this information is protected by the Federal Confidentiality of Alcohol and Drug Abuse Patient Records regulations: The Federal rules restrict any use of the information to criminally investigate or prosecute any alcohol or drug abuse patient.[facility] HospitalIn the event this information is protected by the Federal Confidentiality of Alcohol and Drug Abuse Patient Records regulations: The Federal rules restrict any use of the information to criminally investigate or prosecute any alcohol or drug abuse patient.[facility] HospitalIn the event this information is protected by the Federal Confidentiality of Alcohol and Drug Abuse Patient Records regulations: The Federal rules restrict any use of the information to criminally investigate or prosecute any alcohol or drug abuse patient.[facility] HospitalIn the event this information is protected by the Federal Confidentiality of Alcohol and Drug Abuse Patient Records regulations: The Federal rules restrict any use of the information to criminally investigate or prosecute any alcohol or drug abuse patient.[facility] HospitalIn the event this information is protected by the Federal Confidentiality of Alcohol and Drug Abuse Patient Records regulations: The Federal rules restrict any use of the information to criminally investigate or prosecute any alcohol or drug abuse patient.[facility] ClinicIn the event this information is protected by the Federal Confidentiality of Alcohol and Drug Abuse Patient Records regulations: The Federal rules restrict any use of the information to criminally investigate or prosecute any alcohol or drug abuse patient.[facility] HospitalIn the event this information is protected by the Federal Confidentiality of Alcohol and Drug Abuse Patient Records regulations: The Federal rules restrict any use of the information to criminally investigate or prosecute any alcohol or drug abuse patient.[facility] HospitalIn the event this information is protected by the Federal Confidentiality of Alcohol and Drug Abuse Patient Records regulations: The Federal rules restrict any use of the information to criminally investigate or prosecute any alcohol or drug abuse patient.[facility] HospitalIn the event this information is protected by the Federal Confidentiality of Alcohol and Drug Abuse Patient Records regulations: The Federal rules restrict any use of the information to criminally investigate or prosecute any alcohol or drug abuse patient.[facility] HospitalIn the event this information is protected by the Federal Confidentiality of Alcohol and Drug Abuse Patient Records regulations: The Federal rules restrict any use of the information to criminally investigate or prosecute any alcohol or drug abuse patient.[facility] HospitalIn the event this information is protected by the Federal Confidentiality of Alcohol and Drug Abuse Patient Records regulations: The Federal rules restrict any use of the information to criminally investigate or prosecute any alcohol or drug abuse patient.[facility] HospitalIn the event this information is protected by the Federal Confidentiality of Alcohol and Drug Abuse Patient Records regulations: The Federal rules restrict any use of the information to criminally investigate or prosecute any alcohol or drug abuse patient.[facility] HospitalIn the event this information is protected by the Federal Confidentiality of Alcohol and Drug Abuse Patient Records regulations: The Federal rules restrict any use of the information to criminally investigate or prosecute any alcohol or drug abuse patient.[facility] HospitalIn the event this information is protected by the Federal Confidentiality of Alcohol and Drug Abuse Patient Records regulations: The Federal rules restrict any use of the information to criminally investigate or prosecute any alcohol or drug abuse patient.[facility] HospitalIn the event this information is protected by the Federal Confidentiality of Alcohol and Drug Abuse Patient Records regulations: The Federal rules restrict any use of the information to criminally investigate or prosecute any alcohol or drug abuse patient.[facility] HospitalIn the event this information is protected by the Federal Confidentiality of Alcohol and Drug Abuse Patient Records regulations: The Federal rules restrict any use of the information to criminally investigate or prosecute any alcohol or drug abuse patient.[facility] HospitalIn the event this information is protected by the Federal Confidentiality of Alcohol and Drug Abuse Patient Records regulations: The Federal rules restrict any use of the information to criminally investigate or prosecute any alcohol or drug abuse patient.[facility] HospitalIn the event this information is protected by the Federal Confidentiality of Alcohol and Drug Abuse Patient Records regulations: The Federal rules restrict any use of the information to criminally investigate or prosecute any alcohol or drug abuse patient.[facility] HospitalIn the event this information is protected by the Federal Confidentiality of Alcohol and Drug Abuse Patient Records regulations: The Federal rules restrict any use of the information to criminally investigate or prosecute any alcohol or drug abuse patient.[facility] HospitalIn the event this information is protected by the Federal Confidentiality of Alcohol and Drug Abuse Patient Records regulations: The Federal rules restrict any use of the information to criminally investigate or prosecute any alcohol or drug abuse patient.[facility] HospitalIn the event this information is protected by the Federal Confidentiality of Alcohol and Drug Abuse Patient Records regulations: The Federal rules restrict any use of the information to criminally investigate or prosecute any alcohol or drug abuse patient.[facility] HospitalIn the event this information is protected by the Federal Confidentiality of Alcohol and Drug Abuse Patient Records regulations: The Federal rules restrict any use of the information to criminally investigate or prosecute any alcohol or drug abuse patient.[facility] HospitalIn the event this information is protected by the Federal Confidentiality of Alcohol and Drug Abuse Patient Records regulations: The Federal rules restrict any use of the information to criminally investigate or prosecute any alcohol or drug abuse patient.[facility] HospitalIn the event this information is protected by the Federal Confidentiality of Alcohol and Drug Abuse Patient Records regulations: The Federal rules restrict any use of the information to criminally investigate or prosecute any alcohol or drug abuse patient.[facility] HospitalIn the event this information is protected by the Federal Confidentiality of Alcohol and Drug Abuse Patient Records regulations: The Federal rules restrict any use of the information to criminally investigate or prosecute any alcohol or drug abuse patient.[facility] HospitalIn the event this information is protected by the Federal Confidentiality of Alcohol and Drug Abuse Patient Records regulations: The Federal rules restrict any use of the information to criminally investigate or prosecute any alcohol or drug abuse patient.[facility] HospitalIn the event this information is protected by the Federal Confidentiality of Alcohol and Drug Abuse Patient Records regulations: The Federal rules restrict any use of the information to criminally investigate or prosecute any alcohol or drug abuse patient.[facility] HospitalIn the event this information is protected by the Federal Confidentiality of Alcohol and Drug Abuse Patient Records regulations: The Federal rules restrict any use of the information to criminally investigate or prosecute any alcohol or drug abuse patient.[facility] HospitalIn the event this information is protected by the Federal Confidentiality of Alcohol and Drug Abuse Patient Records regulations: The Federal rules restrict any use of the information to criminally investigate or prosecute any alcohol or drug abuse patient.[facility] HospitalIn the event this information is protected by the Federal Confidentiality of Alcohol and Drug Abuse Patient Records regulations: The Federal rules restrict any use of the information to criminally investigate or prosecute any alcohol or drug abuse patient.[facility] HospitalIn the event this information is protected by the Federal Confidentiality of Alcohol and Drug Abuse Patient Records regulations: The Federal rules restrict any use of the information to criminally investigate or prosecute any alcohol or drug abuse patient.[facility] HospitalIn the event this information is protected by the Federal Confidentiality of Alcohol and Drug Abuse Patient Records regulations: The Federal rules restrict any use of the information to criminally investigate or prosecute any alcohol or drug abuse patient.[facility] HospitalIn the event this information is protected by the Federal Confidentiality of Alcohol and Drug Abuse Patient Records regulations: The Federal rules restrict any use of the information to criminally investigate or prosecute any alcohol or drug abuse patient.[facility] HospitalIn the event this information is protected by the Federal Confidentiality of Alcohol and Drug Abuse Patient Records regulations: The Federal rules restrict any use of the information to criminally investigate or prosecute any alcohol or drug abuse patient.[facility] HospitalIn the event this information is protected by the Federal Confidentiality of Alcohol and Drug Abuse Patient Records regulations: The Federal rules restrict any use of the information to criminally investigate or prosecute any alcohol or drug abuse patient.[facility] HospitalIn the event this information is protected by the Federal Confidentiality of Alcohol and Drug Abuse Patient Records regulations: The Federal rules restrict any use of the information to criminally investigate or prosecute any alcohol or drug abuse patient.[facility] HospitalIn the event this information is protected by the Federal Confidentiality of Alcohol and Drug Abuse Patient Records regulations: The Federal rules restrict any use of the information to criminally investigate or prosecute any alcohol or drug abuse patient.[facility] HospitalIn the event this information is protected by the Federal Confidentiality of Alcohol and Drug Abuse Patient Records regulations: The Federal rules restrict any use of the information to criminally investigate or prosecute any alcohol or drug abuse patient.[facility] HospitalIn the event this information is protected by the Federal Confidentiality of Alcohol and Drug Abuse Patient Records regulations: The Federal rules restrict any use of the information to criminally investigate or prosecute any alcohol or drug abuse patient.[facility] HospitalIn the event this information is protected by the Federal Confidentiality of Alcohol and Drug Abuse Patient Records regulations: The Federal rules restrict any use of the information to criminally investigate or prosecute any alcohol or drug abuse patient.[facility] HospitalIn the event this information is protected by the Federal Confidentiality of Alcohol and Drug Abuse Patient Records regulations: The Federal rules restrict any use of the information to criminally investigate or prosecute any alcohol or drug abuse patient.[facility] HospitalIn the event this information is protected by the Federal Confidentiality of Alcohol and Drug Abuse Patient Records regulations: The Federal rules restrict any use of the information to criminally investigate or prosecute any alcohol or drug abuse patient.[facility] HospitalIn the event this information is protected by the Federal Confidentiality of Alcohol and Drug Abuse Patient Records regulations: The Federal rules restrict any use of the information to criminally investigate or prosecute any alcohol or drug abuse patient.[facility] HospitalIn the event this information is protected by the Federal Confidentiality of Alcohol and Drug Abuse Patient Records regulations: The Federal rules restrict any use of the information to criminally investigate or prosecute any alcohol or drug abuse patient.[facility] HospitalIn the event this information is protected by the Federal Confidentiality of Alcohol and Drug Abuse Patient Records regulations: The Federal rules restrict any use of the information to criminally investigate or prosecute any alcohol or drug abuse patient.[facility] HospitalIn the event this information is protected by the Federal Confidentiality of Alcohol and Drug Abuse Patient Records regulations: The Federal rules restrict any use of the information to criminally investigate or prosecute any alcohol or drug abuse patient.[facility] HospitalIn the event this information is protected by the Federal Confidentiality of Alcohol and Drug Abuse Patient Records regulations: The Federal rules restrict any use of the information to criminally investigate or prosecute any alcohol or drug abuse patient.[facility] HospitalIn the event this information is protected by the Federal Confidentiality of Alcohol and Drug Abuse Patient Records regulations: The Federal rules restrict any use of the information to criminally investigate or prosecute any alcohol or drug abuse patient.[facility] HospitalIn the event this information is protected by the Federal Confidentiality of Alcohol and Drug Abuse Patient Records regulations: The Federal rules restrict any use of the information to criminally investigate or prosecute any alcohol or drug abuse patient.[facility] HospitalIn the event this information is protected by the Federal Confidentiality of Alcohol and Drug Abuse Patient Records regulations: The Federal rules restrict any use of the information to criminally investigate or prosecute any alcohol or drug abuse patient.[facility] HospitalIn the event this information is protected by the Federal Confidentiality of Alcohol and Drug Abuse Patient Records regulations: The Federal rules restrict any use of the information to criminally investigate or prosecute any alcohol or drug abuse patient.[facility] HospitalIn the event this information is protected by the Federal Confidentiality of Alcohol and Drug Abuse Patient Records regulations: The Federal rules restrict any use of the information to criminally investigate or prosecute any alcohol or drug abuse patient.[facility] HospitalIn the event this information is protected by the Federal Confidentiality of Alcohol and Drug Abuse Patient Records regulations: The Federal rules restrict any use of the information to criminally investigate or prosecute any alcohol or drug abuse patient.[facility] HospitalIn the event this information is protected by the Federal Confidentiality of Alcohol and Drug Abuse Patient Records regulations: The Federal rules restrict any use of the information to criminally investigate or prosecute any alcohol or drug abuse patient.[facility] HospitalIn the event this information is protected by the Federal Confidentiality of Alcohol and Drug Abuse Patient Records regulations: The Federal rules restrict any use of the information to criminally investigate or prosecute any alcohol or drug abuse patient.[facility] Reason for Visit (unrecogniz ed section and content) Reason Onset Date Comments Refill Request 12/12/2021 Reason Comments Forms [employer] PAP Reason Comments Medication Problem Reason Onset Date Comments Refill Request 12/29/2021 Reason Comments Diabetes Reason Onset Date Comments Refill Request 01/12/2022 Reason Comments right calf 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 Reason 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 Reason Onset Date [...] Onset Date Comments Transition Of Care 11/22/2022 [facility] 3/7-37 d x: chest pain Reason [...] MEDICINE - ADULT OFFICE/OUTPATIENT [facility] 60 MINUTES Osvaldo Travis PA-C [address] [place] [address] Referral ID Status Reason Start Date Expiration Date V isits Requested Visits Authorized [id number] Closed PCP Requested Referral 02/28/2024 02/27/2025 1 1 Reason Onset Date Comments Refill Request 07/09/2024 Reason Onset Date Comments Refill Request 08/01/2024 Reason Comments Oxygen Order Request Reason Comments Patient Update Reason Onset Date Comments Refill Request 08/15/2024 Reason Comments CGM Order Reason Onset Date Comments Refill Request 08/22/2024 Reason Comments Constipation Reason Comments Patient Update Appointment Reason Comments ER F/U [facility] ER 09/20/24 dx:CP Reason Onset Date Comments [...] initial encounter Procedures CONSULT TO PODIATRY OFFICE/OUTPATIENT NEW HIGH MDM 60 MINUTES Mathieu Virgen MD [address] [place] [address] Phone: tel: fax: Referral ID Status Reason Start Date Expiration Date V isits Requested Visits Authorized [id number] Closed PCP Requested Referral 01/12/2025 01/12/2026 1 1 Reason Comments Diabetes A1C right now is 6.8 according to his marielle Reason Comments FYI-No Action Needed Diabetes note sent to DME Reason Onset Date Comments Refill Request 03/27/2025 refill status 03/27/2025 Reason Comments Patient Assistance Ceci Reyes form for basaglar Reason Onset Date Comments Transition Of Care 06/02/2025 Chest pain [facility] 05/31-06/01 Care Teams (unrecognized sec tion and content) 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 Relationship Specialty Start Date End Date Mathieu Virgen MD [address] [place], [place] [id number] PCP - General Family Practice 01/10/18 Asad Rothman, [facility] [address] [place], [place] [id number] Pharmacist Pharmacy 05/24/20 [facility] [address] [place], [place] [id number] Pharmacist Pharmacy 03/31/21 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 Relationship Specialty Start Date End Date Mathieu Virgen MD [address] [place] [address] PCP - General Family Practice 01/10/18 [facility] [address] [facility] [place] [address] Pharmacist Pharmacy 05/24/20 [facility] [address] [place] [address] Pharmacist Pharmacy 03/31/21 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 Relationship Specialty Start Date End Date Mathieu Virgen MD [address] [place] [address] PCP - General Family Practice 01/10/18 Asad Rothman, [facility] [address] [facility] [place] [address] Pharmacist Pharmacy 05/24/20 [facility] [address] [place] [address] Pharmacist Pharmacy 03/31/21 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 Relationship Specialty Start Date End Date Mathieu Virgen MD [address] [place] [address] PCP - General Family Practice 01/10/18 [facility] [address] [facility] [place] [address] Pharmacist Pharmacy 05/24/20 Kaitlyn Hernández, [facility] [address] [place] [address] Pharmacist Pharmacy 03/31/21 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 Relationship Specialty Start Date End Date Mathieu Virgen MD [address] [place] [address] PCP - General Family Practice 01/10/18 Asad Rothman, [facility] [address] [place] [address] Pharmacist Pharmacy 05/24/20 Kaitlyn Hernández, [facility] [address] [facility] [place] [address] Pharmacist Pharmacy 03/31/21 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 Relationship Specialty Start Date End Date Mathieu Virgen MD [address] [facility] [place] [address] PCP - General Family Practice 01/10/18 [facility] [address] [facility] [place] [address] Pharmacist Pharmacy 05/24/20 [facility] [address] [facility] [place] [address] Pharmacist Pharmacy 03/31/21 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 Relationship Specialty Start Date End Date Mathieu Virgen MD [address] [place] [address] PCP - General Family Practice 01/10/18 [facility] [address] [facility] [place] [address] Pharmacist Pharmacy 05/24/20 Kaitlyn Hernández, [facility] [address] [facility] [place] [address] Pharmacist Pharmacy 03/31/21 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 Relationship Specialty Start Date End Date Mathieu Virgen MD [address] [place] [address] PCP - General Family Practice 01/10/18 Asad Rothman, [facility] [address] [place] [address] Pharmacist Pharmacy 05/24/20 [facility] [address] [place] [address] Pharmacist Pharmacy 03/31/21 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 Relationship Specialty Start Date End Date Mathieu Virgen MD [address] [place] [address] PCP - General Family Practice 01/10/18 [facility] [address] [place] [address] Pharmacist Pharmacy 05/24/20 [facility] [address] [place] [address] Pharmacist Pharmacy 03/31/21 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 Relationship Specialty Start Date End Date Mathieu Virgen MD [address] [place] [address] PCP - General Family Practice 01/10/18 [facility] [address] [place] [address] Pharmacist Pharmacy 05/24/20 Kaitlyn [facility] [address] [place] [address] Pharmacist Pharmacy 03/31/21 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 Relationship Specialty Start Date End Date Mathieu Virgen MD [address] [place] [address] PCP - General Family Practice 01/10/18 Asad RothmanUniversity [facility] [address] [place] [address] Pharmacist Pharmacy 05/24/20 Kaitlyn Hernández, [facility] [address] [place] [address] Pharmacist Pharmacy 03/31/21 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 Relationship Specialty Start Date End Date Mathieu Virgen MD [address] [place] [address] PCP - General Family Practice 01/10/18 Asad Rothman, [facility] [address] [facility] [place] [address] Pharmacist Pharmacy 05/24/20 Kaitlyn [facility]án[facility] [address] [facility] [place] [address] Pharmacist Pharmacy 03/31/21 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 Relationship Specialty Start Date End Date Mathieu Virgen MD [address] [place] [address] PCP - General Family Practice 01/10/18 Asad RothmanUniversity [facility] [address] [facility] [place] [address] Pharmacist Pharmacy 05/24/20 Kaitlyn HernándezUniversity [facility] [address] [place] [address] Pharmacist Pharmacy 03/31/21 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 Relationship Specialty Start Date End Date Mathieu Virgen MD [address] [place] [address] PCP - General Family Practice 01/10/18 Asad RothmanUniversity [facility] [address] [facility] [place] [address] Pharmacist Pharmacy 05/24/20 Kaitlyn Hernán[facility] [address] [facility] [place] [address] Pharmacist Pharmacy 03/31/21 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 Relationship Specialty Start Date End Date Mathieu Virgen MD [address] [place] [address] PCP - General Family Medicine 01/10/18 Asad Rothman, [facility] [address] [place] [address] Pharmacist Pharmacy 05/24/20 Kaitlyn Hernández [facility] [address] [facility] [place] [address] Pharmacist Pharmacy 03/31/21 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 Relationship Specialty Start Date End Date Mathieu Virgen MD [address] [facility] [place] [address] PCP - General Family Medicine 01/10/18 Asad RothmanUniversity [facility] [address] [facility] [place] [address] Pharmacist Pharmacy 05/24/20 [place], [facility]lynUniversity [facility] [address] [facility] [place] [address] Pharmacist Pharmacy 03/31/21 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 Relationship Specialty Start Date End Date Mathieu Virgen MD [address] [facility] [place] [address] PCP - General Family Medicine 01/10/18 Asad Rothman, [facility] [address] [facility] [place] [address] Pharmacist Pharmacy 05/24/20 Jaqueline Hernándezily, [facility] [address] [facility] [place] [address] Pharmacist Pharmacy 03/31/21 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 Relationship Specialty Start Date End Date Mathieu Virgen MD [address] [place] [address] PCP - General Family Medicine 01/10/18 Stephan Gregoriocj, [facility] [address] [facility] [place] [address] Pharmacist Pharmacy 05/24/20 Edgar, Kaitlyn, [facility] [address] [facility] [place] [address] Pharmacist Pharmacy 03/31/21 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 Relationship Specialty Start Date End Date Mathieu Virgen MD [address] [place] [address] PCP - General Family Medicine 01/10/18 Stephan GregoriocjUniversity [facility] [address] [facility] [place] [address] Pharmacist Pharmacy 05/24/20 Jaqueline HernándezilyUniversity [facility] [address] [place] [address] Pharmacist Pharmacy 03/31/21 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 Relationship Specialty Start Date End Date Mathieu Virgen MD [address] [place] [address] PCP - General Family Medicine 01/10/18 Stephan GregoriocjUniversity [facility] [address] [place] [address] Pharmacist Pharmacy 05/24/20 Jaqueline Hernándezily, [facility] [address] [place] [address] Pharmacist Pharmacy 03/31/21 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 Relationship Specialty Start Date End Date Mathieu Virgen MD [address] [place] [address] PCP - General Family Medicine 01/10/18 Asad RothmanUniversity [facility] [address] [place] [address] Pharmacist Pharmacy 05/24/20 [place], Kaitlyn, [facility] [address] [place] [address] Pharmacist Pharmacy 03/31/21 Team Status: Active Member [...] Dr. Narda Kebede MD Attending Provider Active 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 Relationship Specialty Start Date End Date Mathieu Virgen MD [address] [place] [address] PCP - General Family Medicine 01/10/18 Asad RothmanUniversity [facility] [address] [place] [address] Pharmacist Pharmacy 05/24/20 Kaitlyn HernándezUniversity [facility] [address] [place] [address] Pharmacist Pharmacy 03/31/21 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 Relationship Specialty Start Date End Date Mathieu Virgen MD [address] [place] [address] PCP - General Family Medicine 01/10/18 Asad Rothman, [facility] [address] [place] [address] Pharmacist Pharmacy 05/24/20 Kaitlyn HernándezUniversity [facility] [address] [place] [address] Pharmacist Pharmacy 03/31/21 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 Relationship Specialty Start Date End Date Mathieu Virgen MD [address] [place] [address] PCP - General Family Medicine 01/10/18 Asad [facility]manUniversity [facility] [address] [place] [address] Pharmacist Pharmacy 05/24/20 Kaitlyn HernándezUniversity [facility] [address] [place] [address] Pharmacist Pharmacy 03/31/21 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 Relationship Specialty Start Date End Date Mathieu Virgen MD [address] [place] [address] PCP - General Family Medicine 01/10/18 Asad RothmanUniversity [facility] [address] [place] [address] Pharmacist Pharmacy 05/24/20 Kaitlyn HernándezUniversity [facility] [address] [place] [address] Pharmacist Pharmacy 03/31/21 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 Relationship Specialty Start Date End Date Mathieu Virgen MD [address] [place] [address] PCP - General Family Medicine 01/10/18 Asad RothmanUniversity [facility] [address] [place] [address] Pharmacist Pharmacy 05/24/20 Kaitlyn HernándezUniversity [facility] [address] [place] [address] Pharmacist Pharmacy 03/31/21 Team Status: Inactive Member Role Status Dates Dr. Mathieu Virgen MD Primary Care Provider, Referring Provider Active Halle Pina HOT PACKER, HOT PACKER-C Attending Provider Active Team Status: Active Member [...] DO Attending Provider, Emergency Pr ovider Active 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 Relationship Specialty Start Date End Date Mathieu Virgen MD [address] [place] [address] PCP - General Family Medicine 01/10/18 Asad Rothman, [facility] [address] [place] [address] Pharmacist Pharmacy 05/24/20 Kaitlyn Hernández, [facility] [address] [place] [address] Pharmacist Pharmacy 03/31/21 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 Relationship Specialty Start Date End Date Mathieu Virgen MD [address] [place] [address] PCP - General Family Medicine 01/10/18 Asad Rothman, [facility] [address] [place] [address] Pharmacist Pharmacy 05/24/20 Kaitlyn Hernández, [facility] [address] [place] [address] Pharmacist Pharmacy 03/31/21 Team Status: Inactive Member Role Status Dates Dr. Mathieu Virgen MD Primary Care Provider Active Dr. Mani Esquivel DO Emergency Provider Active 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 Relationship Specialty Start Date End Date Mathieu Virgen MD [address] [place] [address] PCP - General Family Medicine 01/10/18 Asad RothmanUniversity [facility] [address] [place] [address] Pharmacist Pharmacy 05/24/20 [place], KaitlynUniversity [facility] [address] [place] [address] Pharmacist Pharmacy 03/31/21 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 Relationship Specialty Start Date End Date Mathieu Virgen MD [address] [facility] [place] [address] PCP - General Family Medicine 01/10/18 Asad Rothman, [facility] [address] [place] [address] Pharmacist Pharmacy 05/24/20 Kaitlyn Hernández, [facility] [address] [place] [address] Pharmacist Pharmacy 03/31/21 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 Relationship Specialty Start Date End Date Mathieu Virgen MD [address] [place] [address] PCP - General Family Medicine 01/10/18 Asad [facility]manUniversity [facility] [address] [place] [address] Pharmacist Pharmacy 05/24/20 Edgar Kaitlyn, [facility] [address] [facility] [place] [address] Pharmacist Pharmacy 03/31/21 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 Relationship Specialty Start Date End Date Mathieu Virgen MD [address] [place] [address] PCP - General Family Medicine 01/10/18 Asad Rothman, [facility] [address] [place] [address] Pharmacist Pharmacy 05/24/20 Kaitlyn Hernández[facility] [address] [place] [address] Pharmacist Pharmacy 03/31/21 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 Relationship Specialty Start Date End Date Mathieu Virgen MD [address] [place] [address] PCP - General Family Medicine 01/10/18 Asad Rothman, [facility] [address] [place] [address] Pharmacist Pharmacy 05/24/20 Kaitlyn Hernández, [facility] [address] [place] [address] Pharmacist Pharmacy 03/31/21 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 Relationship Specialty Start Date End Date Mathieu Virgen MD [address] [place] [address] PCP - General Family Medicine 01/10/18 Asad Rothman, [facility] [address] [place] [address] Pharmacist Pharmacy 05/24/20 Kaitlyn HernándezUniversity [facility] [address] [place] [address] Pharmacist Pharmacy 03/31/21 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 Relationship Specialty Start Date End Date Mathieu Virgen MD [address] [place] [address] PCP - General Family Medicine 01/10/18 Asad Rothman, [facility] [address] [place] [address] Pharmacist Pharmacy 05/24/20 [place], Kaitlyn, [facility] [address] [place] [address] Pharmacist Pharmacy 03/31/21 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 Relationship Specialty Start Date End Date Mathieu Virgen MD [address] [place] [address] PCP - General Family Medicine 01/10/18 Asad Rothman, [facility] [address] [facility] [place] [address] Pharmacist Pharmacy 05/24/20 Edgar, Kaitlyn, [facility] [address] [facility] [place] [address] Pharmacist Pharmacy 03/31/21 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 Relationship Specialty Start Date End Date Mathieu Virgen MD [address] [facility] [place] [address] PCP - General Family Medicine 01/10/18 Asad Rothman, [facility] [address] [place] [address] Pharmacist Pharmacy 05/24/20 Edgar, Kaitlyn, [facility] [address] [facility] [place] [address] Pharmacist Pharmacy 03/31/21 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 Relationship Specialty Start Date End Date Mathieu Virgen MD [address] [place] [address] PCP - General Family Medicine 01/10/18 Asad Rothman, [facility] [address] [place] [address] Pharmacist Pharmacy 05/24/20 Jaqueline Hernándezily, [facility] [address] [facility] [place] [address] Pharmacist Pharmacy 03/31/21 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 Relationship Specialty Start Date End Date Mathieu Virgen MD [address] [place] [address] PCP - General Family Medicine 01/10/18 [facility] AsadUniversity [facility] [address] [place] [address] Pharmacist Pharmacy 05/24/20 [place] K[facility]lynUniversity [facility] [address] [facility] [place] [address] Pharmacist Pharmacy 03/31/21 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 Relationship Specialty Start Date End Date Mathieu Virgen MD [address] [facility] [place] [address] PCP - General Family Medicine 01/10/18 [facility] Asad, [facility] [address] [place] [address] Pharmacist Pharmacy 05/24/20 [place], [facility]lynUniversity [facility] [address] [place] [address] Pharmacist Pharmacy 03/31/21 Team Status: Inactive Member Role Status Dates Dr. Mathieu Virgen MD Primary Care Provider Active Dr. Chris Faulkner MD Attending Provider, Chun moore Active 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 Relationship Specialty Start Date End Date Mathieu Virgen MD [address] [place] [address] PCP - General Family Medicine 01/10/18 Faizandarcie Asad, [facility] [address] [place] [address] Pharmacist Pharmacy 05/24/20 [place], [facility]lynUniversity [facility] [address] [place] [address] Pharmacist Pharmacy 03/31/21 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 Relationship Specialty Start Date End Date Mathieu Virgen MD [address] [place] [address] PCP - General Family Medicine 01/10/18 Asad RothmanUniversity [facility] [address] [place] [address] Pharmacist Pharmacy 05/24/20 Kaitlyn HernándezUniversity [facility] [address] [facility] [place] [address] Pharmacist Pharmacy 03/31/21 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 Relationship Specialty Start Date End Date Mathieu Virgen MD [address] [place] [address] PCP - General Family Medicine 01/10/18 [facility] [address] [employer] [place] [place] [address] Pharmacist Pharmacy 03/31/21 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 Relationship Specialty Start Date End Date Mathieu Virgen MD [address] [place] [place] [address] PCP - General Family Medicine 01/10/18 Kaitlyn HernándezUniversity [facility] [address] [employer] [place] [place] [address] Pharmacist Pharmacy 03/31/21 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 Relationship Specialty Start Date End Date Mathieu Virgen MD [address] [facility] [place] [address] PCP - General Family Medicine 01/10/18 Team Status: Inactive Member Role Status Dates Dr. Mathieu Virgen MD Primary Care Provider Active Dr. Tre Johnson DO Emergency Provider Active Team Status: Inactive Member Role Status Dates Dr. Mathieu Virgen MD Primary Care Provider Active Dr. Chris Faulkner MD Attending Provider Active 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 Relationship Specialty Start Date End Date Mathieu Virgen MD [address] [place] [address] PCP - General Family Medicine 01/10/18 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 Relationship Specialty Start Date End Date Mathieu Virgen MD [address] [place] [address] PCP - General Family Medicine 01/10/18 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 Relationship Specialty Start Date End Date Mathieu Virgen MD [address] [place] [address] PCP - General Family Medicine 01/10/18 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 Relationship Specialty Start Date End Date Mathieu Virgen MD [address] [place] [address] PCP - General Family Medicine 01/10/18 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 Relationship Specialty Start Date End Date Mathieu Virgen MD [address] [place] [address] PCP - General Family Medicine 01/10/18 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 Relationship Specialty Start Date End Date Mathieu Virgen MD [address] [place] [address] PCP - General Family Medicine 01/10/18 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 Relationship Specialty Start Date End Date Mathieu Virgen MD [address] [place] [address] PCP - General Family Medicine 01/10/18 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 Relationship Specialty Start Date End Date Mathieu Virgen MD [address] [place] [address] PCP - General Family Medicine 01/10/18 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 Relationship Specialty Start Date End Date Mathieu Virgen MD [address] [place] [address] PCP - General Family Medicine 01/10/18 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 Relationship Specialty Start Date End Date Mathieu Virgen MD [address] [place] [address] PCP - General Family Medicine 01/10/18 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 Relationship Specialty Start Date End Date Mathieu Virgen MD [address] [place] [address] PCP - General Family Medicine 01/10/18 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 Relationship Specialty Start Date End Date Matiheu Virgen MD [address] [place] [address] PCP - General Family Medicine 01/10/18 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 Relationship Specialty Start Date End Date Mathieu Virgen MD [address] [place] [address] PCP - General Family Medicine 01/10/18 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 Relationship Specialty Start Date End Date Mathieu Virgen MD [address] [place] [address] PCP - General Family Medicine 01/10/18 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 Relationship Specialty Start Date End Date Mathieu Virgen MD [address] [place] [address] PCP - General Family Medicine 01/10/18 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 Relationship Specialty Start Date End Date Mathieu Virgen MD [address] [place] [address] PCP - General Family Medicine 01/10/18 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 Relationship Specialty Start Date End Date Mathieu Virgen MD [address] [place] [address] PCP - General Family Medicine 01/10/18 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 Relationship Specialty Start Date End Date Mathieu Virgen MD [address] [place] [address] PCP - General Family Medicine 01/10/18 Asad Rothman, [facility] [address] [place] [address] Pharmacist Pharmacy 05/24/20 07/30/23 Kaitlyn Hernández [facility] [address] [place] [address] Pharmacist Pharmacy 03/31/21 08/29/23 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 Relationship Specialty Start Date End Date Mathieu Virgen MD [address] [place] [address] PCP - General Family Medicine 01/10/18 Asad Rothman, [facility] [address] [place] [address] Pharmacist Pharmacy 05/24/20 07/30/23 Kaitlyn Hernández [facility] [address] [place] [address] Pharmacist Pharmacy 03/31/21 08/29/23 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 Relationship Specialty Start Date End Date Mathieu Virgen MD [address] [place] [address] PCP - General Family Medicine 01/10/18 Asad Rothman, [facility] [address] [place] [address] Pharmacist Pharmacy 05/24/20 07/30/23 Kaitlyn Hernández, [facility] [address] [place] [address] Pharmacist Pharmacy 03/31/21 08/29/23 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 Relationship Specialty Start Date End Date Mathieu Virgen MD [address] [place] [address] PCP - General Family Medicine 01/10/18 Asad Rothman, [facility] [address] [place] [address] Pharmacist Pharmacy 05/24/20 07/30/23 Edgar, Kaitlyn, [facility] [address] [place] [address] Pharmacist Pharmacy 03/31/21 08/29/23 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 Relationship Specialty Start Date End Date Mathieu Virgen MD [address] [place] [address] PCP - General Family Medicine 01/10/18 Asad Rothman, [facility] [address] [place] [address] Pharmacist Pharmacy 05/24/20 07/30/23 Kaitlyn Hernández, [facility] [address] [place] [address] Pharmacist Pharmacy 03/31/21 08/29/23 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 Relationship Specialty Start Date End Date Mathieu Virgen MD [address] [place] [address] PCP - General Family Medicine 01/10/18 Asad Rothman, [facility] [address] [place] [address] Pharmacist Pharmacy 05/24/20 07/30/23 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 Relationship Specialty Start Date End Date Mathieu Virgen MD [address] [place], [place] [address] PCP - General Family Medicine 01/10/18 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 Relationship Specialty Start Date End Date Mathieu Virgen MD [address] [place], [place] [address] PCP - General Family Medicine 01/10/18 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 Relationship Specialty Start Date End Date Mathieu Virgen MD [address] [place], [place] [address] PCP - General Family Medicine 01/10/18 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 Relationship Specialty Start Date End Date Mathieu Virgen MD [address] [place], [place] [address] PCP - General Family Medicine 01/10/18 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 Relationship Specialty Start Date End Date Mathieu Virgen MD [address] [place] [address] PCP - General Family Medicine 01/10/18 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 Relationship Specialty Start Date End Date Mathieu Virgen MD [address] [place], [place] [address] PCP - General Family Medicine 01/10/18 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 Relationship Specialty Start Date End Date Mathieu Virgen MD [address] [place], [place] [address] PCP - General Family Medicine 01/10/18 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 Relationship Specialty Start Date End Date Mathieu Virgen MD [address] [place] [address] PCP - General Family Medicine 01/10/18 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 Relationship Specialty Start Date End Date Mathieu Virgen MD [address] [place] [address] PCP - General Family Medicine 01/10/18 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 Relationship Specialty Start Date End Date Mathieu Virgen MD [address] [place] [address] PCP - General Family Medicine 01/10/18 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 Relationship Specialty Start Date End Date Mathieu Virgen MD [address] [place] [address] PCP - General Family Medicine 01/10/18 Denisha Shepard, [employer]CEL[employer]HER.[employer]S ENGINEER [address] [place] [address] [employer] [facility] 08/25/24 Julianna Hood [employer]EL[employer]HER.[employer] SEC[employer]ITY SYSTEMS ENGINEER [address] [place] [address] [employer] 08/25/24 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 Relationship Specialty Start Date End Date Mathieu Virgen MD [address] [place] [address] PCP - General Family Medicine 01/10/18 Denisha Shepard, P[employer]CEL[employer]USHER.[employer] SECURITY SYSTEMS ENGINEER [address] [place] [address] [employer] 08/25/24 Julianna Hood APRN.CYBER SECURITY SYSTEMS ENGINEER [address] [facility] [id number] [facility] 08/25/24 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 Relationship Specialty Start Date End Date Mathieu Virgen MD [address] [place] [address] PCP - General Family Medicine 01/10/18 Denisha Shepard PORCELAIN SLUSHER.CYBER SECURITY SYSTEMS ENGINEER [address] [place] [address] [facility] 08/25/24 Julianna Hood PORCELAIN SLUSHER.CYBER SECURITY SYSTEMS ENGINEER [address] [place] [address] [facility] 08/[facility] 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 Relationship Specialty Start Date End Date Mathieu Virgen MD [address] [place] [address] PCP - General Family Medicine 01/10/18 Denisha Shepard, PORCELAIN SLUSHER.CYBER SECURITY SYSTEMS ENGINEER [address] [place] [address] [facility] 08/25/24 Julianna Hood PORCELAIN SLUSHER.CYBER SECURITY SYSTEMS ENGINEER [address] [place] [address] [facility] 08/25/24 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 Relationship Specialty Start Date End Date Mathieu Virgen MD [address] [place] [address] PCP - General Family Medicine 01/10/18 Denisha Shepard, PORCELAIN SLUSHER.CYBER SECURITY SYSTEMS ENGINEER [address] [place] [address] [facility] 08/25/24 Julianna Hood APRN.CYBER SECURITY SYSTEMS ENGINEER [address] [place] [address] [facility] 08/25/24 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 Relationship Specialty Start Date End Date Mathieu Virgen MD [address] [place] [address] PCP - General Family Medicine 01/10/18 Denisha Shepard APRN.CYBER SECURITY SYSTEMS ENGINEER [address] [place] [address] [facility] 08/25/24 Julianna Hood APRN.CYBER SECURITY SYSTEMS ENGINEER [address] [place] [address] [facility] 08/25/24 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 Relationship Specialty Start Date End Date Mathieu Virgen MD [address] [place] [address] PCP - General Family Medicine 01/10/18 Denisha Shepard PORCELAIN SLUSHER.CYBER SECURITY SYSTEMS ENGINEER [address] [place] [address] [facility] 08/25/24 Julianna Hood APRN.CYBER SECURITY SYSTEMS ENGINEER [address] [place] [address] [facility] 08/25/24 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 Relationship Specialty Start Date End Date Mathieu Virgen MD [address] [place], [place] [address] PCP - General Family Medicine 01/10/18 Denisha Shepard APRN.CYBER SECURITY SYSTEMS ENGINEER [address] [place], [place] [id number] [facility] 08/25/24 Julianna Hood APRN.CYBER SECURITY SYSTEMS ENGINEER [address] [place], [place] [address] [facility] 08/25/24 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 Relationship Specialty Start Date End Date Mathieu Virgen MD [address] [place], [place] [address] PCP - General Family Medicine 01/10/18 Denisha Shepard APRN.CYBER SECURITY SYSTEMS ENGINEER [address] [place], [place] [address] [facility] 08/25/24 Julianna Hood APRN.CYBER SECURITY SYSTEMS ENGINEER [address] [place], [place] [id number] [facility] 08/25/24 Team Status: Active Member Role Status Dates Dr. Mathieu Virgen MD Primary Care Provider Active Team Status: Inactive Member Role Status Dates Dr. Mathieu Virgen MD Primary Care Provider Active Start: August 11, 2024 End: August 11, 2024 Sergey Carreon HOT PACKER, HOT PACKER-C Attending Provider Active S tart: August 11, 2024 End: August 11, 2024 Sergey Carreon HOT PACKER, HOT PACKER-C Referring Provider Active S tart: August 11, 2024 End: August 11, 2024 Team Status: Inactive Member Role Status Dates Dr. Mathieu Virgen MD Primary Care Provider Active Start: August 13, 2024 End: August 13, 2024 Dr. Mathieu Virgen MD Referring Provider Active Start: August 13, 2024 End: August 13, 2024 Sergey Carreon HOT PACKER, HOT PACKER-C Attending Provider Active S tart: August 13, [...] 2024 End: September 03, 2024 Sergey Carreon HOT PACKER, HOT PACKER-C Attending Provider Active S tart: September 03, [...] October 07, 2024 End: October 07, 2024 CASIMIRO Whyte Referring Provider Active Start: October 07, 2024 [...] 03, 2024 End: November 03, 2024 Dr. aQsim Senior DO Attending Provider Active S tart: November 03, 2024 End: November 03, 2024 Dr. Qasim Senior DO Emergency Provider Active S tart: November 03, 2024 End: November 03, 2024 Team Status: Inactive Member Role Status Dates Dr. Mathieu Virgen MD Primary Care Provider Active Start: November 10, 2024 End: November 10, 2024 TALIA WelchC Attending Provider Active Start: November 10, 2024 [...] Provider Active Start: November 28, 2024 End: March 14th, 2025 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 Relationship Specialty Start Date End Date Mathieu Virgen MD [address] [place] [address] PCP - General Family Medicine 01/10/18 Denisha Shepard APRN.CYBER SECURITY SYSTEMS ENGINEER [address] [place] [address] [facility] 08/25/24 Julianna Hood APRN.CYBER SECURITY SYSTEMS ENGINEER [address] [place] [address] [facility] 08/25/24 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 Relationship Specialty Start Date End Date Mathieu Virgen MD [address] [place] [address] PCP - General Family Medicine 01/10/18 Denisha Shepard PORCELAIN SLUSHER.CYBER SECURITY SYSTEMS ENGINEER [address] [place] [address] [facility] 08/25/24 Julianna Hood PORCELAIN SLUSHER.CYBER SECURITY SYSTEMS ENGINEER [address] [facility] [place] [address] [facility] 08/25/24 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 Relationship Specialty Start Date End Date Mathieu Virgen MD [address] [place] [address] PCP - General Family Medicine 01/10/18 Denisha Shepard APRN.CYBER SECURITY SYSTEMS ENGINEER [address] [place] [address] [facility] 08/25/24 Julianna Hood PORCELAIN SLUSHER.CYBER SECURITY SYSTEMS ENGINEER [address] [place] [address] [facility] 08/25/24 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 Relationship Specialty Start Date End Date Mathieu Virgen MD [address] [facility] [place] [address] PCP - General Family Medicine 01/10/18 Denisha Shepard, PORCELAIN SLUSHER.CYBER SECURITY SYSTEMS ENGINEER [address] [place] [address] [facility] 08/25/24 Julianna Hood PORCELAIN SLUSHER.CYBER SECURITY SYSTEMS ENGINEER [address] [place] [address] [facility] 08/25/24 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 Relationship Specialty Start Date End Date Mathieu Virgen MD [address] [place] [address] PCP - General Family Medicine 01/10/18 Denisha Shepard, PORCELAIN SLUSHER.CYBER SECURITY SYSTEMS ENGINEER [address] [place] [address] [facility] 08/25/24 Julianna Hood PORCELAIN SLUSHER.CYBER SECURITY SYSTEMS ENGINEER [address] [place] [address] [facility] 08/25/24 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 Relationship Specialty Start Date End Date Mathieu Virgen MD [address] [place] [address] PCP - General Family Medicine 01/10/18 Denisha Shepard, PORCELAIN SLUSHER.CYBER SECURITY SYSTEMS ENGINEER [address] [place] [address] [facility] 08/25/24 Julianna Hood APRN.CYBER SECURITY SYSTEMS ENGINEER [address] [place] [address] [facility] 08/25/24 Team Status: Inactive Member Role [...] End: January 26, 2025 Sergey Carreon NP, HOT PACKER-C Attending Provider Active S tart: January 26, 2025 End: January 26, 2025 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 Relationship Specialty Start Date End Date Mathieu Virgen MD [address] [place], [place] [address] PCP - General Family Medicine 01/10/18 Denisha Shepard APRN.CYBER SECURITY SYSTEMS ENGINEER [address] [place], [place] [id number] [facility] 08/25/24 Julianna Hood APRN.CYBER SECURITY SYSTEMS ENGINEER [address] [place] [address] [facility] 08/25/24 Team Status: Inactive Member Role [...] Provider Active S tart: March 02, 2025 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 Relationship Specialty Start Date End Date Mathieu Virgen MD [address] [facility] [place] [id number] PCP - General Family Medicine 01/10/18 Denisha Shepard, PORCELAIN SLUSHER.CYBER SECURITY SYSTEMS ENGINEER [address] [place], [place] [address] [facility] 08/25/24 Julianna Hood PORCELAIN SLUSHER.CYBER SECURITY SYSTEMS ENGINEER [address] [place], [place] [address] [facility] 08/25/24 Team Status: Active Member Role/Relationship [...] End: January 26, 2025 Sergey Carreon NP HOT PACKER-C Attending Provider Active S tart: January 26, 2025 End: January 26, 2025 Team Status: Inactive Member Role/Relationship Status Dates Dr. Mathieu Virgen MD Primary Care Provider Active Start: January 30, 2025 End: January 30, 2025 Megan Macario NP-C Attending Provider Active Start: January 30, 2025 End: January 30, 2025 Megan Maacrio NP-C Referring Provider Active Start: January 30, 2025 End: January 30, 2025 Team Status: Active Member Role/Relationship Status Dates Dr. Matiheu Virgen MD Primary Care Provider Active Start: [...] End: February 26, 2025 Megan Macario NP-C Referring Provider Active Start: February 26, 2025 End: February 26, 2025 Team Status: Active Member Role/Relationship Status Dates Dr. Mathiue Virgen MD Primary Care Provider Active Start: March 02, 2025 Megan Macario NP-C Referring Provider Active Start: March 02, 2025 Megan Macario NP-Lonnie Other Provider Active St art: March 02, [...] April 08, 2025 End: April 08, 2025 TALIA WelchC Attending Provider Active Start: April 08, 2025 [...] End: January 26, 2025 Sergey Carreon NP, NP-C Attending Provider Active S tart: January 26, 2025 End: January 26, 2025 Team Status: Inactive Member Role/Relationship Status Dates Dr. Mathieu Virgen MD Primary Care Provider Active Start: January 30, 2025 End: January 30, 2025 Megan M Rufener , HOT PACKER-C Attending Provider Active Start: January 30, 2025 End: January 30, 2025 Megan Macario HOT PACKER-C Referring Provider Active Start: January 30, 2025 End: January 30, 2025 Team Status: Active Member Role/Relationship Status Dates Dr. Mathieu Virgen MD Primary Care Provider Active Start: January 30, 2025 Dr. Marvin Reeves DO Attending Provider Active S tart: January 30, 2025 Megan Macario HOT PACKER-C Referring Provider Active Start: January 30, 2025 Team Status: Inactive Member Role/Relationship Status Dates Dr. Mathieu Virgen MD Primary Care Provider Active Start: February 26, 2025 End: February 26, 2025 Megan Macario HOT PACKER-C Attending Provider Active Start: February 26, 2025 End: February 26, 2025 Megan Macario HOT PACKER-C Referring Provider Active Start: February 26, 2025 End: February 26, 2025 Team Status: Active Member Role/Relationship Status Dates Dr. Mathieu Virgen MD Primary Care Provider Active Start: March 02, 2025 Megan Macario HOT PACKER-C Referring Provider Active Start: March 02, 2025 Megan Macario HOT PACKER-C Other Provider Active St art: March 02, 2025 Dr. Marvin Reeves DO Attending Provider Active S tart: March 02, 2025 Team Status: Inactive Member Role/Relationship Status Dates Dr. Mathieu Virgen MD Primary Care Provider Active Start: April 01, 2025 End: April 01, 2025 Megan Macario HOT PACKER-C Attending Provider Active Start: April 01, 2025 End: April 01, 2025 Megan Macario HOT PACKER-C Referring Provider Active Start: April 01, 2025 End: April 01, 2025 Team Status: Inactive Member Role/Relationship Status Dates Dr. Mathieu Virgen MD Primary Care Provider Active Start: April 08, 2025 End: April 08, 2025 Dr. Mathieu Virgen MD Referring Provider Active Start: April 08, 2025 End: April 08, 2025 Megan Macario HOT PACKER-C Attending Provider Active Start: April 08, 2025 [...] Provider Active S tart: April 30, 2025 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 Relationship Specialty Start Date End Date Mathieu Virgen MD [address] [place], [place] [address] PCP - General Family Medicine 01/10/18 Denisha Shepard APRN.CYBER SECURITY SYSTEMS ENGINEER [address] [place], [place] [id number] [facility] 08/25/24 Julianna Hood PORCELAIN SLUSHER.CYBER SECURITY SYSTEMS ENGINEER [address] [place], [place] [address] [facility] 08/25/24 Team Status: Inactive Member Role/Relationship Status Dates Dr. Mathieu Virgen MD Primary Care Provider Active Start: May 04, 2025 End: May 04, 2025 Dr. Mathieu Virgen MD Referring Provider Active Start: May 04, 2025 End: May 04, 2025 CASIMIRO Santana Attending Provider Active St art: May 04, 2025 End: May 04, 2025 Team Status: Inactive Member Role/Relationship Status [...] April 08, 2025 End: April 08, 2025 TALIA WelchC Attending Provider Active Start: April 08, 2025 [...] Status: Active Member Role/Relationship Status Dates Dr. Jordan Rangel MD Attending Provider Active Start: April 30, 2025 Dr. Narda Prather DO Referring Provider Active Start: April 30, 2025 Team Status: Active Member Role/Relationship Status Dates Dr. Mathieu Virgen MD Primary Care Provider Active Start: April 30, 2025 Dr. Yola Canales MD Referring Provider Active S tart: April 30, 2025 Dr. Yola Canales MD Emergency Provider Active S tart: April 30, 2025 Dr. Narda Prather DO Admit Provider Active Start: April 30, 2025 Dr. Narda Pratehr DO Other Provider Active Start: April 30, 2025 Dr. Chilango Wheeler DO Other Provider Active Start: April 30, 2025 Dr. Edgar Dee MD Attending Provider Active S tart: April 30, 2025 Team Status: Active Member Role/Relationship Status Dates Dr. Matheiu Virgen MD Primary Care Provider Active Start: April 30, 2025 Dr. Yola Canales MD Emergency Provider Active S tart: April 30, 2025 Dr. Narda Prather DO Admit Provider Active Start: April 30, 2025 Dr. Narda Prather DO Other Provider Active Start: April 30, 2025 Dr. Chilango Wheeler DO Attending Provider Active Start: April 30, 2025 Dr. Chilango Wheeler DO Other Provider Active Start: April 30, 2025 Team Status: Inactive Member Role/Relationship Status Dates Dr. Mathieu Virgen MD Primary Care Provider Active Start: May 04, 2025 End: May 04, 2025 Dr. Mathieu Virgen MD Referring Provider Active Start: May 04, 2025 End: May 04, 2025 CASIMIRO Santana Attending Provider Active St art: May 04, 2025 End: May 04, 2025 Team Status: Active Member Role/Relationship Status Dates Dr. Mathieu Virgen MD Primary Care Provider Active Start: May 31, 2025 Dr. Marcelo Hernandez DO Emergency Provider Active Start: May 31, 2025 Dr. Chilango Wheeler DO Attending Provider Active Start: May 31, 2025 Team Status: Active Member Role/Relationship Status Dates Dr. Mathieu Virgen MD Primary Care Provider Active Start: May 31, 2025 Dr. Marcelo Hernandez DO Emergency Provider Active Start: May 31, 2025 Dr. Chilango Wheeler DO Admit Provider Active Start: May 31, 2025 Dr. Chilango Mosteller , DO Attending Provider Active Start: May 31, 2025 Team Status: Inactive Member Role/Relationship Status Dates Dr. Mathieu Virgen MD Primary Care Provider Active Start: May 31, 2025 End: June 01, 2025 Dr. Marcelo Hernandez DO Emergency Provider Active Start: May 31, 2025 End: June 01, 2025 Dr. Chilango Wheeler DO Admit Provider Active Start: May 31, 2025 End: June 01, 2025 Dr. Chilango Wheeler DO Other Provider Active Start: May 31, 2025 End: June 01, 2025 Dr. Lucía Pulido MD Other Provider Active Start : May 31, 2025 End: June 01, 2025 Dr. Narda Kebede MD Attending Provider Active Start: May 31, 2025 End: June 01, 2025 Team Status: Active Member Role/Relationship Status Dates Dr. Mathieu Virgen MD Primary Care Provider Active Start: June 01, 2025 Dr. Marcelo Hernandez DO Emergency Provider Active Start: June 01, 2025 Dr. Chilango Wheeler DO Admit Provider Active Start: June 01, 2025 Dr. Chilango Wheeler DO Other Provider Active Start: June 01, 2025 Dr. Lucía Pulido MD Other Provider Active Start : June 01, 2025 Dr. Narda Kebede MD Attending Provider Active Start: June 01, 2025 Dr. Narda Kebede MD Other Provider Active Star t: June 01, 2025 Team Status: Active Member Role/Relationship Status Dates Dr. Mathieu Virgen MD Primary Care Provider Active Start: June 01, 2025 Dr. Talia Lopez MD Attending Provider Active Start: June 01, 2025 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 Relationship Specialty Start Date End Date Mathieu Virgen MD [address] [place], [place] [id number] PCP - General Family Medicine 01/10/18 Denisha Shepard, PAIGE.CYBER SECURITY SYSTEMS ENGINEER [address] [place] [address] [facility] 08/25/24 Julianna Hood, PORCELAIN SLUSHER.CYBER SECURITY SYSTEMS ENGINEER [address] [place] [address] [facility] 08/25/24 Team Status: Active Member Role/Relationship Status Dates Dr. Mathieu Virgen MD Primary care physician Active Team Status: Inactive Member Role/Relationship Status Dates Dr. Mathieu Virgen MD Primary care physician Active Start: February 26, 2025 End: February 26, 2025 EZRA Welch Attending physician Active Start: February 26, 2025 End: February 26, 2025 EZRA Welch Referring Provider Active Start: February 26, 2025 End: February 26, 2025 Team Status: Active Member Role/Relationship Status Dates Dr. Mathieu Virgen MD Primary care physician Active Start: March 02, 2025 EZRA Welch Referring Provider Active Start: March 02, 2025 EZRA Welch Nurse Practitioner Active Start: March 02, 2025 Dr. Marvin Reeves DO Attending physician Active Start: March 02, 2025 Team Status: Inactive Member Role/Relationship Status Dates Dr. Mathieu Virgen MD Primary care physician Active Start: April 01, 2025 End: April 01, 2025 EZRA Welch Attending physician Active Start: April 01, 2025 End: April 01, 2025 EZRA Welch Referring Provider Active Start: April 01, 2025 End: April 01, 2025 Team Status: Inactive Member Role/Relationship Status Dates Dr. Mathieu Virgen MD Primary care physician Active Start: April 08, 2025 End: April 08, 2025 Dr. Mathieu Virgen MD Referring Provider Active Start: April 08, 2025 End: April 08, 2025 EZRA Welch Attending physician Active Start: April 08, 2025 End: April 08, 2025 Team Status: Inactive Member Role/Relationship Status Dates Dr. Mathieu Virgen MD Primary care physician Active Start: April 08, 2025 End: April 08, 2025 EZRA Welch Attending physician Active Start: April 08, 2025 End: April 08, 2025 EZRA Welch Referring Provider Active Start: April 08, 2025 End: April 08, 2025 Team Status: Inactive Member Role/Relationship Status Dates Dr. Mathieu Virgen MD Primary care physician Active Start: April 29, 2025 End: April 30, 2025 Dr. Yola Canales MD Referring Provider Active S tart: April 29, 2025 End: April 30, 2025 Dr. [facility] Active Start: April 29, 2025 End: April 30, 2025 Dr. Narda Prather DO Admitting physician Active Start: April 29, 2025 End: April 30, 2025 Dr. Narda Prather DO Nurse Practitioner Active Start: April 29, 2025 End: April 30, 2025 Dr. Chilango Wheeler DO Attending physician Active Start: April 29, 2025 End: April 30, 2025 Team Status: Active Member Role/Relationship Status Dates Dr. Jordan Rangel MD Attending physician Active Start: April 30, 2025 Dr. Narda Prather DO Referring Provider Active Start: April 30, 2025 Team Status: Active Member Role/Relationship Status Dates Dr. Mathieu Virgen MD Primary care physician Active Start: April 30, 2025 Dr. Yola Canales MD Referring Provider Active S tart: April 30, 2025 Dr. Yola [facility]ales [facility] Active Start: April 30, 2025 Dr. Narda Prather DO Admitting physician Active Start: April 30, 2025 Dr. Narda Prather DO Nurse Practitioner Active Start: April 30, 2025 Dr. Chilango Wheeler DO Nurse Practitioner Active Start: April 30, 2025 Dr. Edgar Dee MD Attending physician Active Start: April 30, 2025 Team Status: Active Member Role/Relationship Status Dates Dr. Mathieu Virgen MD Primary care physician Active Start: April 30, 2025 Dr. Yola Canales [facility] Active Start: April 30, 2025 Dr. Narda Prather DO Admitting physician Active Start: April 30, 2025 Dr. Narda Prather DO Nurse Practitioner Active Start: April 30, 2025 Dr. Chilango Wheeler DO Attending physician Active Start: April 30, 2025 Dr. Chilango Wheeler DO Nurse Practitioner Active Start: April 30, 2025 Team Status: Inactive Member Role/Relationship Status Dates Dr. Mathieu Virgen MD Primary care physician Active Start: May 04, 2025 End: May 04, 2025 Dr. Mathieu Virgen MD Referring Provider Active Start: May 04, 2025 End: May 04, 2025 CASIMIRO Santana Attending physician Active S tart: May 04, 2025 End: May 04, 2025 Team Status: Active Member Role/Relationship Status Dates Dr. Mathieu Virgen MD Primary care physician Active Start: May 31, 2025 Dr. Marcelo Hernandez , DO Emergency Departm ent Physician Active Start: May 31, 2025 Dr. Chilango Wheeler DO Attending physician Active Start: May Team Status: Inactive Member Role/Relationship Status Dates Dr. Mathieu Virgen MD Primary care physician Active Start: May 31, 2025 End: June 01, 2025 Dr. Marcelo Hernandez , DO Emergency Departm ent Physician Active Start: May 31, 2025 End: June 01, 2025 Dr. Chilango Wheeler DO Admitting physician Active Start: May End: June 01, 2025 Dr. Chilango Wheeler DO Nurse Practitioner Active Start: May End: June 01, 2025 Dr. Lucía Pulido MD Nurse Practitioner Active S tart: May 31, 2025 End: June 01, 2025 Dr. Narda Kebede MD Attending physician Active Start: May 31, 2025 End: June 01, 2025 Team Status: Active Member Role/Relationship Status Dates Dr. Mathieu Virgen MD Primary care physician Active Start: June 01, 2025 Dr. Marcelo Hernandez , DO Emergency Departm ent Physician Active Start: June 01, 2025 Dr. Chilango Wheeler DO Admitting physician Active Start: May Dr. Chilango Wheeler DO Nurse Practitioner Active Start: May Dr. Lucía Pulido MD Nurse Practitioner Active S tart: June 01, 2025 Dr. Narda Kebede MD Attending physician Active Start: June 01, 2025 Dr. Narda Kebede MD Nurse Practitioner Active Start: June 01, 2025 Team Status: Active Member Role/Relationship Status Dates Dr. Mathieu Virgen MD Primary care physician Active Start: June 01, 2025 Dr. Talia Lopez MD Attending physician Active Start: June 01, 2025 Team Status: Inactive Member Role/Relationship Status Dates Dr. Mathieu Virgen MD Primary care physician Active Start: June 11, 2025 End: June 11, 2025 Dr. Mathieu Virgen MD Referring Provider Active Start: June 11, 2025 End: June 11, 2025 Tierra Gilbert PA, PA Attending physician Active Start: June 11, 2025 End: June 11, 2025 Team Status: Active Member Role/Relationship Status Dates Dr. Mathieu Virgen MD Primary care physician Active Start: June 12, 2025 Dr. Mathieu Virgen MD Attending physician Active Start: June 12, 2025 Dr. Mathieu Virgen MD Referring Provider Active Start: June 12, 2025 Team Status: Inactive Member Role/Relationship Status Dates Dr. Mathieu Virgen MD Primary care physician Active Start: April 01, 2025 End: April 01, 2025 EZRA Welch Attending physician Active Start: April 01, 2025 End: April 01, 2025 EZRA Welch Referring Provider Active Start: April 01, 2025 End: April 01, 2025 Team Status: Inactive Member Role/Relationship Status Dates Dr. Mathieu Virgen MD Primary care physician Active Start: April 08, 2025 End: April 08, 2025 Dr. Mathieu Virgen MD Referring Provider Active Start: April 08, 2025 End: April 08, 2025 EZRA Welch Attending physician Active Start: April 08, 2025 End: April 08, 2025 Team Status: Inactive Member Role/Relationship Status Dates Dr. Mathieu Virgen MD Primary care physician Active Start: April 08, 2025 End: April 08, 2025 EZRA Welch Attending physician Active Start: April 08, 2025 End: April 08, 2025 Megan M Rufener , HOT PACKER-C Referring Provider Active Start: April 08, 2025 End: April 08, 2025 Team Status: Inactive Member Role/Relationship Status Dates Dr. Mathieu Virgen MD Primary care physician Active Start: April 29, 2025 End: April 30, 2025 Dr. Yola Canales MD Referring Provider Active S tart: April 29, 2025 End: April 30, 2025 Dr. Yola Canales MD Emergency Departmen t Physician Active Start: April 29, 2025 End: April 30, 2025 Dr. Narda Prather DO Admitting physician Active Start: April 29, 2025 End: April 30, 2025 Dr. Narda Prather DO Nurse Practitioner Active Start: April 29, 2025 End: April 30, 2025 Dr. Chilango Wheeler DO Attending physician Active Start: April 29, 2025 End: April 30, 2025 Team Status: Active Member Role/Relationship Status Dates Dr. Jordan Rangel MD Attending physician Active Start: April 30, 2025 Dr. Narda Prather DO Referring Provider Active Start: April 30, 2025 Team Status: Active Member Role/Relationship Status Dates Dr. Mathieu Virgen MD Primary care physician Active Start: April 30, 2025 Dr. Yola Canales MD Referring Provider Active S tart: April 30, 2025 Dr. [facility] Active Start: April 30, 2025 Dr. Narda Prather DO Admitting physician Active Start: April 30, 2025 Dr. Narda Prather DO Nurse Practitioner Active Start: April 30, 2025 Dr. Chilango Wheeler DO Nurse Practitioner Active Start: April 30, 2025 Dr. Edgar eDe MD Attending physician Active Start: April 30, 2025 Team Status: Active Member Role/Relationship Status Dates Dr. Mathieu Virgen MD Primary care physician Active Start: April 30, 2025 Dr. Y[facility]ales [facility] Active Start: April 30, 2025 Dr. Narda Prather DO Admitting physician Active Start: April 30, 2025 Dr. Narda Prather DO Nurse Practitioner Active Start: April 30, 2025 Dr. Chilango Wheeler DO Attending physician Active Start: April 30, 2025 Dr. Chilango Wheeler DO Nurse Practitioner Active Start: April 30, 2025 Team Status: Inactive Member Role/Relationship Status Dates Dr. Mathieu Virgen MD Primary care physician Active Start: May 04, 2025 End: May 04, 2025 Dr. Mathieu Virgen MD Referring Provider Active Start: May 04, 2025 End: May 04, 2025 CASIMIRO Santana Attending physician Active S tart: May 04, 2025 End: May 04, 2025 Team Status: Active Member Role/Relationship Status Dates Dr. Mathieu Virgen MD Primary care physician Active Start: May 31, 2025 Dr. Marcelo Hernandez , DO Emergency Departm ent Physician Active Start: May 31, 2025 Dr. Chilango Wheeler DO Attending physician Active Start: May Team Status: Inactive Member Role/Relationship Status Dates Dr. Mathieu Virgen MD Primary care physician Active Start: May 31, 2025 End: June 01, 2025 Dr. Marcelo Hernandez , DO Emergency Departm ent Physician Active Start: May 31, 2025 End: June 01, 2025 Dr. Chilango Wheeler DO Admitting physician Active Start: May End: June 01, 2025 Dr. Chilango Wheeler DO Nurse Practitioner Active Start: May End: June 01, 2025 Dr. Lucía Pulido MD Nurse Practitioner Active S tart: May 31, 2025 End: June 01, 2025 Dr. Narda Kebede MD Attending physician Active Start: May 31, 2025 End: June 01, 2025 Team Status: Active Member Role/Relationship Status Dates Dr. Mathieu Virgen MD Primary care physician Active Start: June 01, 2025 Dr. Marcelo Hernandez DO Emergency Departm ent Physician Active Start: June 01, 2025 Dr. Chilango Wheeler DO Admitting physician Active Start: May Dr. Chilango Wheeler DO Nurse Practitioner Active Start: May Dr. Lucía Pulido MD Nurse Practitioner Active S tart: June 01, 2025 Dr. Narda Kebede MD Attending physician Active Start: June 01, 2025 Dr. Narda Kebede MD Nurse Practitioner Active Start: June 01, 2025 Team Status: Active Member Role/Relationship Status Dates Dr. Mathieu Virgen MD Primary care physician Active Start: June 01, 2025 Dr. Talia Lopez MD Attending physician Active Start: June 01, 2025 Team Status: Inactive Member Role/Relationship Status Dates Dr. Mathieu Virgen MD Primary care physician Active Start: June 11, 2025 End: June 11, 2025 Dr. Mathieu Virgen MD Referring Provider Active Start: June 11, 2025 End: June 11, 2025 Tierra KIRKPATRICK, PA Attending physician Active Start: June 11, 2025 End: June 11, 2025 Team Status: Inactive Member Role/Relationship Status Dates Dr. Mathieu Virgen MD Primary care physician Active Start: June 12, 2025 End: June 12, 2025 Dr. Mathieu Virgen MD Attending physician Active Start: June 12, 2025 End: June 12, 2025 Dr. Mathieu Virgen MD Referring Provider Active Start: June 12, 2025 End: June 12, 2025 Team Status: Inactive Member Role/Relationship Status Dates Dr. Mathieu Virgen MD Primary care physician Active Start: July 08, 2025 End: July 08, 2025 EZRA Welch Attending physician Active Start: July 08, 2025 End: July 08, 2025 EZRA Welch Referring Provider Active Start: July 08, 2025 End: July 08, 2025 Goals (unrecognized section and content) [...] Records FoundNo Status Records FoundNo Status Records FoundNo Status Records Found INFORMATION SOURCE (unrecogn ized section and content) DATE CREATED AUTHOR 05/18/2024 [facility] DATE CREATED AUTHOR AUTHOR'S ORGANIZ ATION 06/27/2025 [facility] DATE CREATED AUTHOR AUTHOR'S ORGANIZ ATION 07/14/2025 [facility] DATE CREATED AUTHOR AUTHOR'S ORGANIZ ATION 07/30/2025 [facility] FOR RECORDS PERTAINING TO PATIENTS WHO [...] BE BASED ON THE PRIMARY CLINICAL RECORDS. [facility] [employer] [facility]. provides no warranty or guarantee of the accuracy or completeness of information in this document.
[2025-09-04] MEDS: HYDROcodone Bitartrate/Apap 5/325 Tablet PO (17:53)
[2025-09-04 18:01] VITALS: BP 135/78; PULSE 78; RESP 16; TEMP 36.8; O2SAT 98
== END 2025-09-04 18:07 | disposition home or self-care (01) ==
PROVIDERS: Emergency Provider Emergency Medicine; PCP Family Medicine; Visit Provider Emergency Medicine
DX: M54.40 Lumbago with sciatica, unspecified side (principal); I48.91 Unspecified atrial fibrillation; Z79.4 Long term (current) use of insulin; E11.9 Type 2 diabetes mellitus without complications; E78.00 Pure hypercholesterolemia, unspecified; Z87.891 Personal history of nicotine dependence; I25.10 Atherosclerotic heart disease of native coronary artery without angina pectoris; Z82.49 Family history of ischemic heart disease and other diseases of the circulatory system; Z90.49 Acquired absence of other specified parts of digestive tract; Z79.01 Long term (current) use of anticoagulants; I10 Essential (primary) hypertension
CPT/HCPCS: 99283

== ENCOUNTER 2025-09-12 12:26 | Emergency (ER) | payer MEDICARE, SELFPAY ==
[2025-09-12 12:27] VITALS: BP 88/53; PULSE 76; RESP 16; TEMP 36.4; O2SAT 95
[2025-09-12 12:39] VITALS: BP 123/64; PULSE 77; RESP 21; O2SAT 96; BMI 32.8
--- NOTE | 2025-09-12 12:41 | EX.ED.GENINJ ---
HPI History of Present Illness Chief Complaint: Back Narrative Narrative: Pt is a 80-year-old male who is presenting to the ER with chief complaint of acute on chronic left lower back pain, left hip pain, and left lumbar radiculopathy. Patient was seen here on September 04, patient was seen evaluated. Patient was placed on Medrol Dosepak and hydrocodone. Patient did not have any relief of his symptoms or pain. Patient daughter at bedside states that he had bladder cancer surgery on August 21, and he was lying on the table in the operating room. She believes that something happened with the position he was in otherwise leading to flare of left lower lumbar radiculopathy and left hip pain. Patient does have a walker at home. Patient and daughter at bedside with the understanding if patient's symptoms did not improve after the Medrol Dosepak and pain medication had worn out, they will return to the ER for further evaluation and testing and possibly MRI. Patient was at [facility] Yesterday. Patient was there at a different doctor's office visit. Secondary to his pain, they were going to check into the ER at [facility]. The wait was 6 hours, patient may not have been seen until today, so they left the waiting room and went home. Patient still having the same pain today, no saddle anesthesia or cauda equina's. Patient is having left lumbar no radiculopathy, no paresthesias. No abdominal pain. No nausea vomiting. No history abdominal aneurysm. Obese, no palpable mass, no palpable pulsatile mass, REVIEW OF SYSTEMS: Unless otherwise stated in this report the patient's positive and negative responses for review of systems for constitutional, eyes, ENT, cardiovascular, respiratory, gastrointestinal, neurological, , musculoskeletal, and integument systems and related systems to the presenting problem are either stated in the history of present illness or were not pertinent or were negative for the symptoms and/or complaints related to the presenting medical problem. Nurse's notes and vital signs reviewed. The patient is not hypoxic. Vital signs reviewed and patient is not hypoxic. General: The patient appears well and in no apparent distress. Patient is resting comfortably on cart. Not toxic, lethargic, or listless. Skin: Warm, dry, no pallor noted. There is no rash noted. Head: Normocephalic, atraumatic Eye: Normal conjunctiva, no drainage, EOMI. PERRL. Ears, Nose, Mouth, and Throat: oral mucosa is moist. Nares patent. Mouth without vesicles. Cardiovascular: Regular Rate and Rhythm, no murmurs, gallops, or rubs Respiratory: Patient is in no distress, no accessory muscle use, lungs are clear to auscultation, no wheezing, rales or rhonchi Back: Patient has mild left paralumbar tenderness palpation, no new lumbar sacral step-off, no rash, signs of abscess, ecchymosis, signs of infection. Patient has mild to moderate reproducible tenderness palpation from approximately L3-S1, the rest of his back is non-tender, no CVA tenderness bilaterally to percussion. NO CTLS midline or paraspinal tenderness to palpation. GI: Soft, no flank pain bilateral. No suprapubic tenderness to palpation. Patient denies any pain to penis or testicles. No midepigastric tenderness to palpation. No rigidity or tympany. No tenderness to palpation, no masses appreciated. No rebound, guarding, or rigidity noted. Musculoskeletal: The patient has full range of motion of all extremities and joints with no difficulty except the left hip. Patient has moderate to severe pain with internal/external rotation of left hip while he is lying in bed with leg extended, mild crepitus palpated. Patient has mild to moderate reproducible left piriformis tenderness palpation, positive straight leg raising test on the left, no signs of saddle anesthesia cauda equina. Patient has no motor, no sensory deficits. Neurological: A&O x4, normal speech, no focal neurological deficits. Psychiatric: Cooperative [facility] Medical History History of CAD (coronary artery disease) Paroxysmal atrial fibrillation Chronic pain Kidney stones GERD (gastroesophageal reflux disease) Non-smoker Diastolic dysfunction Dyspnea Diabetes Sleep apnea Atrial fibrillation Cancer Walker as ambulation aid Arthritis Prostate disease Complete edentulism, class III Gastric reflux CPAP (continuous positive airway pressure) dependence History of pain when walking History of edema History of echocardiogram History of stress test Cardiology follow-up encounter Blindness Bladder cancer Restrictive airway disease Morbid obesity Pneumonia due to COVID-19 virus Left lower lobe pneumonia Acute respiratory failure with hypoxia Wears hearing aid Wears glasses Insulin dependent diabetes mellitus Psoriasis High cholesterol Restless legs Back pain Injury of back Dietary restriction Former smoker Shortness of breath on exertion Hypertension Right bundle branch 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 Nonobstructive atherosclerosis of coronary artery Obesity BPH (benign prostatic hyperplasia) Hyperlipidemia Essential (primary) hypertension Atrial fibrillation with RVR (02/05/21) Home Medications ?Medication ?Instructions ?Recorded ?Last Taken ?Type metformin 500 mg tablet,extended 1,000 mg PO BID blood sugar 10/24/21 05/30/25 History release 24 hr albuterol sulfate 90 mcg/actuation 1 inh inhalation Q6H PRN SOB #8.5 11/30/21 Unknown Rx aerosol inhaler grams finasteride 5 mg tablet 5 mg PO DAILY bph 10/27/22 05/30/25 History turmeric root extract 500 mg 1,000 mg PO DAILY viatmin 10/24/23 05/30/25 History capsule diltiazem HCl 120 mg 120 mg PO DAILY heart 06/08/24 05/30/25 History capsule,extended release 24 hr (Cartia XT) cholecalciferol (vitamin D3) 50 2,000 unit PO DAILY supplement 07/22/24 05/30/25 History mcg (2,000 unit) capsule (Vitamin D3) solifenacin 10 mg tablet 10 mg PO DAILY bladder 07/22/24 05/30/25 History empagliflozin 25 mg tablet 25 mg PO DAILY diabetes #30 tabs 07/25/24 05/30/25 Rx (Jardiance) atorvastatin 20 mg tablet 20 mg PO DAILY cholesterol 09/01/24 05/30/25 History spironolactone 25 mg tablet 25 mg PO DAILY diuretic #30 tabs 09/23/24 05/30/25 Rx isosorbide mononitrate 30 mg 30 mg PO DAILY heart #90 tabs 10/22/24 05/30/25 Rx tablet,extended release 24 hr insulin aspart 26 unit subcut TID diabetes 01/19/25 05/30/25 History (niacinamide)(U-100) 100 unit/mL(3 mL) subcutaneous pen (Fiasp FlexTouch U-100 Insulin) mecobalamin (vitamin B12) 1,000 1,000 mcg PO DAILY vitamin 01/19/25 05/30/25 History mcg chewable tablet ferrous gluconate 324 mg (37.5 mg 324 mg PO DAILY 30 days 04/30/25 05/30/25 Rx iron) tablet furosemide 40 mg tablet (Lasix) 40 mg PO PRN 05/22/25 05/30/25 History apixaban 5 mg tablet (Eliquis) 5 mg PO BID BLOOD THINNER 05/31/25 05/30/25 History pantoprazole 40 mg tablet,delayed 40 mg PO DAILY #30 tabs 06/01/25 Unknown Rx release (Protonix) carvedilol 25 mg tablet 12.5 mg PO BID 06/11/25 Unknown History hydrocodone-acetaminophen 5-325mg 1 tab PO Q4H PRN PRN Pain 7 days 09/04/25 Unknown Rx 5mg-325mg #16 TABLETS methylprednisolone 4 mg tablets in 4 mg PO UD ##1 09/04/25 Unknown Rx a dose pack flecainide 100 mg tablet 100 mg PO Q12H heart #180 tabs 09/07/25 Unknown Rx insulin glargine 100 unit/mL (3 45 unit subcut .COMPLEX diabetes 09/07/25 Unknown History mL) subcutaneous pen (Basaglar KwikPen U-100 Insulin) lisinopril 2.5 mg tablet 2.5 mg PO DAILY 09/07/25 Unknown History magnesium 200 mg tablet 200 mg PO .qod 09/07/25 Unknown History tamsulosin 0.4 mg capsule 0.4 mg PO QDAY bph 09/07/25 Unknown History methocarbamol 750 mg tablet 750 mg PO Q8H PRN pain #14 tabs 09/12/25 Unknown Rx oxycodone-acetaminophen 5 mg-325 1 tab PO Q6H PRN PRN Pain 3 days 09/12/25 Unknown Rx mg tablet #12 TABLETS Allergy/AdvReac Type Severity Reaction Status Date / Time amoxicillin Allergy Rash Verified 09/12/25 12:30 Family History Sister Colon cancer Brother Diabetes Mother Diabetes Heart disease Cancer Father Heart disease Cancer Diabetes Surgical History Bladder disease Hx of right cataract extraction Hx of colonoscopy Hx of transurethral resection of prostate H/O wrist surgery History of left heart catheterization (02/07/21) Hx of umbilical hernia repair Hx of cholecystectomy Status post surgical manipulation of ankle joint H/O hemorrhoidectomy Social History household members: spouse Smoking Status: Former smoker how long ago did patient quit smokin years ago alcohol intake: never substance use type: does not use caffeine: Yes Type: coffee Number of servings: 1 EXAM Physical Exam Const Vital Signs: 09/12/25 12:27 09/12/25 12:39 09/12/25 12:43 Temperature 97.6 F L Temperature Source Oral Pulse Rate 76 77 77 Respiratory Rate 16 21 H 17 Blood Pressure 88/53 L 123/64 H 123/64 H Blood Pressure Mean 64 83 83 Pulse Ox 95 96 95 Oxygen Delivery Method Room Air Room Air Room Air 09/12/25 13:58 09/12/25 15:05 Temperature 98.2 F Temperature Source Pulse Rate 71 61 Respiratory Rate 14 12 Blood Pressure 115/69 145/86 H Blood Pressure Mean 84 105 Pulse Ox 99 100 Oxygen Delivery Method Room Air MDM MDM MDM Narrative Medical decision making narrative: Patient seen and examined: CT pelvis/left hip, CT lumbar sacral, IM morphine, IM Norflex, ice Differential diagnosis includes but is not limited to: Lumbar to radiculopathy, sciatica, abscess, left hip osteoarthritis, pelvic fracture, DJD, avascular necrosis of left hip Radiological studies: CT of the lumbar sacral and pelvic/left hip show no acute findings. Is a CT report is given to the patient and daughter. Reevaluation: Patient was given IM injection of morphine and also Norflex. He had just taken off patient's pain. The was taken patient's pain. Social barriers to healthcare: There are no food insecurities, there is no issue with transportation, there are no insurance barriers Disposition: Patient will be sent home with Percocet and Robaxin. Patient understands a follow-up with PCP on Sunday, patient was also given internet security specialist as well. Patient and daughter aware they can also follow-up with pain management, neurosurgeon if needed. They will call PCP to have outpatient MRI ordered if indicated. Patient has no acute neurological status. No signs of saddle seizure or cauda equina. No acute findings. Patient was at home. Patient does not want to be admitted to the hospital, does not want to go to rehab, patient wants to go home. Patient can function with a walker. We are trying to help manage patient's pain until he gets to additional testing him physicians he can help manage his pain and lumbar radiculopathy symptoms. Patient and Daughter comfortable this plan. Lab Data Labs: Laboratory Results - last 24 hr 09/12/25 14:50 POC Glucose 70 L Radiography Diagnostic Testing: Clinical Impression(s) from Imaging Studies Lumbar Spine CT 09/12/25 13:00 IMPRESSION: 1. No acute fracture. 2. Mild spinal canal stenosis of L3-S1 secondary to facet arthropathy and disc bulge. Reading Location: [facility] Pelvis CT 09/12/25 13:01 IMPRESSION: 1. Moderate degenerative changes of the hip joints, bilaterally, greater on the right. 2. Bilateral inguinal hernias. Reading Location: [facility] Discharge Plan Triage Chief Complaint: Back ED Provider: Andrew Walters Dx/Rx/DC Orders Clinical Impression: Chronic pain, Lumbar back pain with radiculopathy affecting left lower extremity, Chronic left hip pain Instructions: Understanding Lumbar Radiculopathy, Back Exercises: Hip Rotator Stretch, Hip Rotation (Flexibility), Sciatica Exercise, ED Back Care Tips, ED Chronic Pain, ED Pain Management: Chronic, ED Sciatica Prescriptions: New methocarbamol 750 mg tablet 750 mg PO Q8H PRN (Reason: pain) Qty: 14 0RF oxycodone-acetaminophen 5-325 mg tablet 1 tab PO Q6H PRN PRN (Reason: Pain) 3 Days Qty: 12 0RF No Action metformin 500 mg tablet extended release 24 hr 1,000 mg PO BID albuterol sulfate 90 mcg/actuation HFA aerosol inhaler 1 inh INHALATION Q6H PRN (Reason: SOB) Qty: 8.5 6RF turmeric root extract 500 mg capsule 1,000 mg PO DAILY spironolactone 25 mg tablet 25 mg PO DAILY Qty: 30 11RF lisinopril 2.5 mg tablet 2.5 mg PO DAILY magnesium 200 mg tablet 200 mg PO .qod Rx Instructions: M, W, F flecainide 100 mg tablet 100 mg PO Q12H Qty: 180 3RF insulin glargine [Basaglar KwikPen U-100 Insulin] 100 unit/mL (3 mL) insulin pen 45 unit subcut .COMPLEX Patient Comments: HAS NOT HAD FOR A FEW DAYS BECAUSE HE IS OUT AT HOME Rx Instructions: 45 units subcutaneously QAM; solifenacin 10 mg tablet 10 mg PO DAILY cholecalciferol (vitamin D3) [Vitamin D3] 50 mcg (2,000 unit) capsule 2,000 unit PO DAILY Jardiance 25 mg Tablet 25 mg PO DAILY Qty: 30 2RF Fiasp FlexTouch U-100 Insulin 100 unit/mL (3 mL) insulin pen 26 unit subcut TID Rx Instructions: 20-26 U PER DAUGHTER BASED ON WHAT PT EATS mecobalamin (vitamin B12) 1,000 mcg tablet,chewable 1,000 mcg PO DAILY Eliquis 5 mg tablet 5 mg PO BID pantoprazole [Protonix] 40 mg tablet,delayed release (DR/EC) 40 mg PO DAILY Qty: 30 0RF carvedilol 25 mg tablet 12.5 mg PO BID methylprednisolone 4 mg tablets,dose pack 4 mg PO UD Qty: 1 0RF hydrocodone-acetaminophen 5-325 mg tablet 1 tab PO Q4H PRN PRN (Reason: Pain) 7 Days Qty: 16 0RF diltiazem HCl [Cartia XT] 120 mg capsule,extended release 24hr 120 mg PO DAILY tamsulosin 0.4 mg capsule 0.4 mg PO QDAY atorvastatin 20 mg tablet 20 mg PO DAILY ferrous gluconate 324 mg (37.5 mg iron) tablet 324 mg PO DAILY 30 Days 3RF finasteride 5 mg tablet 5 mg PO DAILY isosorbide mononitrate 30 mg tablet extended release 24 hr 30 mg PO DAILY Qty: 90 3RF furosemide [Lasix] 40 mg tablet 40 mg PO PRN Primary Care Provider: Jeff Subramanian Referrals: Pedrito Saul MD [Med Staff - Active Staff, Orthopedics] Jeff Subramanian MD [Primary Care Provider, Medical] Activity Restrictions/Additional Instructions: Use ice 20 minutes on, 20 minutes off for the next 5 to 7 days, do not use heat. You may alternate Tylenol and either Motrin, Advil, or ibuprofen every 4 hours for pain or fever. You may substitute Percocet for Tylenol if the pain is severe. However, do not take Percocet and Tylenol together, you may accidentally take too much Tylenol in 1 day. The maximum dose of Tylenol daily is 3000 mg. The maximum dose of either Motrin, Advil, or ibuprofen is 2400 mg daily. Take medication with food or drink to help buffer the medication in your stomach. Continue using MiraLAX daily. Call your PCP, Dr. Subramanian, on Sunday and be referred to neurosurgery, pain management, orthopedic surgery as well to help with treatment of ongoing pain. Print Language: Georgian Disposition Disposition: Home, Self Care Discharge Date/Time: 09/12/25 15:15
[2025-09-12 12:43] VITALS: BP 123/64; PULSE 77; RESP 17; O2SAT 95
--- NOTE | 2025-09-12 13:00 | CT_ITS ---
EXAM: CT Lumbar Spine Without Intravenous Contrast CLINICAL INDICATION: LEFT SCIATICA TECHNIQUE: Axial computed tomography images of the lumbar spine without intravenous contrast. This CT exam was performed using one or more of the following dose reduction techniques: automated exposure control, adjustment of the mA and/or kV according to patient size, and/or use of iterative reconstruction technique. RADIATION DOSE: CTDIvol = 3 3 mGy, DLP = 2552 mGy-cm COMPARISON: No relevant prior studies available. FINDINGS: VERTEBRAE: No acute fracture. DISCS/SPINAL CANAL/NEURAL FORAMINA: Mild spinal canal stenosis of L3-S1 secondary to facet arthropathy and disc bulge. SOFT TISSUES: Unremarkable. CT/Spine Lumbar without Contrast IMPRESSION: 1. No acute fracture. 2. Mild spinal canal stenosis of L3-S1 secondary to facet arthropathy and disc bulge. Reading Location: [facility]
--- NOTE | 2025-09-12 13:01 | CT_ITS ---
EXAM: CT Pelvis Without Intravenous Contrast CLINICAL INDICATION: LEFT HIP, WELL TECHNIQUE: Axial computed tomography images of the pelvis without intravenous contrast. This CT exam was performed using one or more of the following dose reduction techniques: automated exposure control, adjustment of the mA and/or kV according to patient size, and/or use of iterative reconstruction technique. COMPARISON: No relevant prior studies available. FINDINGS: BOWEL: Unremarkable. No obstruction. No mucosal thickening. APPENDIX: No findings to suggest acute appendicitis. INTRAPERITONEAL SPACE: Unremarkable. No free air. No significant fluid collection. BLADDER: Unremarkable. No stones. REPRODUCTIVE: Unremarkable as visualized. BONES/JOINTS: Multilevel endplate degenerative changes and disc degeneration of the visualized lumbar spine, most prominent at L5-S1. Moderate degenerative changes of the hip joints, bilaterally, greater on the right. No acute fracture. No dislocation. SOFT TISSUES: Bilateral inguinal hernias. VASCULATURE: Unremarkable. No lower abdominal aortic aneurysm. LYMPH NODES: Unremarkable. No enlarged lymph nodes. CT/Pelvis without IV Contrast IMPRESSION: 1. Moderate degenerative changes of the hip joints, bilaterally, greater on th e right. 2. Bilateral inguinal hernias. Reading Location: [id number]
--- OUTSIDE RECORDS SUMMARY | 2025-09-12 13:06 | XMS RPT_ITS | CCD ---
Author Organization [facility] Care Team Providers Care Manager Athletics Name Role Phone Mathieu Virgen MD Primary Care Provider [facility], Keti Unavailable [facility], Kaitlyn Unavailable Dr. Mathieu Virgen Primary Care Provider Dr. Mathieu Virgen Referring Provider Roof HARBOR DEPARTMENT MANAGER, HARBOR DEPARTMENT MANAGER-C Sergey Solares Attending Provider Dr. Marvin Reeves Attending Provider Dr. Marvin Reeves Referring Provider Dr. Marvin Reeves Other Provider Yovani HARBOR DEPARTMENT MANAGER, ARSALAN-Lonnie Neri Attending Provider Dr. Mathieu Virgen Primary Care Provider Dr. Mathieu Virgen Referring Provider Roof HARBOR DEPARTMENT MANAGER, HARBOR DEPARTMENT MANAGER-C Sergey Solares Attending Provider Dr. Marvin Reeves Attending Provider Mathieu Virgen MD Primary Care Provider [facility], Keti Unavailable [facility], Kaitlyn Unavailable Mathieu Virgen MD Primary Care Provider [facility], Keti Unavailable [facility], Kaitlyn Unavailable Dr. Mathieu Virgen Primary Care Provider Dr. Mathieu Virgen Referring Provider Lauri HARBOR DEPARTMENT MANAGER, HARBOR DEPARTMENT MANAGERJosseline Solares Attending Provider Mathieu Virgen MD Primary Care Provider [facility], Keti Unavailable [facility], Kaitlyn Unavailable Dr. Mathieu Virgen Primary [...] Provider Dr. Mathieu Virgen Referring Provider Yovani HARBOR DEPARTMENT MANAGER, EZRA Neri Attending Provider Dr. Mathieu Virgen Primary Care Provider [facility], Keti Unavailable Mathieu Virgen MD Primary Care Provider MELVIN BINGHAM Attending Unavailable MATHIEU VIRGEN Primary Care Unavailable [facility], Keti Unavailable [facility], Kaitlyn Unavailable Devyn FOXING CLOSER.Marlon MAYNARDy Unavailable Suppan FOXING CLOSER.MANUFACTURING MAINTENANCE TECHNICIAN, Julianna A Unavailable Suppan FOXING CLOSER.MANUFACTURING MAINTENANCE TECHNICIAN, Julianna A Unavailable Suppan FOXING CLOSER.MANUFACTURING MAINTENANCE TECHNICIAN, Julianna A Unavailable Dr. Mathieu Virgen MD Primary Care Provider Lauri HARBOR DEPARTMENT MANAGER-CSergey Attending Provider Lauri ARRIAZA-CSergey Referring Provider Dr. [...] Emergency Provider Lauri ARRIAZA-CSergey Attending Provider Renaldo HARBOR DEPARTMENT MANAGER-C, Megan Bean Referring Provider Marilynn SAMUEL, Dr. Aguilar Primary Care Provider Rujavi HARBOR DEPARTMENT MANAGER-C, Megan Bean Attending Provider Renaldo HARBOR DEPARTMENT MANAGER-C, Megan Bean Other Provider Pj PEDRO, Dr. Wong Attending Provider Marilynn SAMUEL, Dr. Aguilar Primary Care Provider Marilynn SAMUEL, Dr. Aguilar Referring Provider Rujavi HARBOR DEPARTMENT MANAGER-C, Megan Bean Attending Provider Marilynn SAMUEL, Dr. Aguilar Attending Provider Pj PEDRO, Dr. Wong Attending Provider Marilynn SAMUEL, Dr. Aguilar Primary Care Provider Marilynn SAMUEL, Dr. Aguilar Referring Provider Dr. [...] Mathieu Virgen MD Primary Care Provider Rufener HARBOR DEPARTMENT MANAGER-C, Megan Bean Attending Provider Renaldo HARBOR DEPARTMENT MANAGER-C, Megan Bean Referring Provider Marilynn SAMUEL, Dr. [...] Mathieu Virgen MD Primary Care Physician Renaldo HARBOR DEPARTMENT MANAGER-CMegan Attending Physician Renaldo HARBOR DEPARTMENT MANAGER-CMegan Nurse Practitioner Pj PEDRO, Dr. Wong Attending [...] Mathieu Virgen MD Primary Care Physician Renaldo HARBOR DEPARTMENT MANAGER-CMegan Attending Physician [phone] Renaldo HARBOR DEPARTMENT MANAGER-CMegan Referring Provider Miley Rodriguez Attending Unavailable Sara Landry Consulting Unavailable Sara Landry Admitting Unavailable [facility] Primary Care Unavailable Mani Esquivel Attending Unavailable [facility] Primary Care Unavailable Megan Macario Referring Unavailable RuMegan caldwell Attending Unavailable [facility] Primary Care Unavailable Chilango Wheeler Attending Unavailable Yola Canales Referring Unavailable Narda Prather Admitting Unavailable [facility] Primary Care Unavailable Narda Prather Consulting Unavailable Lauri HARBOR DEPARTMENT MANAGER, Sergey Solares Attending Unavailable Lauri HARBOR DEPARTMENT MANAGER, Sergey Solares Referring Unavailable [facility] Primary Care Unavailable RuMegan caldwell Referring Unavailable RuMegan caldwell Attending Unavailable [facility] Primary Care Unavailable Gerber, [facility] Primary Care Unavailable RuMegan caldwell Attending Unavailable Talia Lopez Attending Unavailable [facility] Primary Care Unavailable [facility] Primary Care Unavailable RuMegan caldwell Attending Unavailable [facility] Primary Care Unavailable Gerber, Mathieu Attending Unavailable Gerber, Mathieu Referring Unavailable [facility] Primary Care Unavailable Gerber, Mathieu Attending Unavailable Gerber, Mathieu Referring Unavailable [facility] Primary Care Unavailable Gerber, Mathieu Attending Unavailable [facility] Referring Unavailable RuMegan caldwell Attending Unavailable Megan Macario Referring Unavailable [facility] Primary Care Unavailable Megan Macario Referring Unavailable RuMegan caldwell Attending Unavailable [facility] Primary Care Unavailable Julianna Hood Attending Unavailable Julianna Hood Referring Unavailable [facility] Primary Care Unavailable Megan Macario M Referring Unavailable Megan Macario Attending Unavailable [facility] Primary Care Unavailable Qasim Senior Attending Unavailable [facility] Primary Care Unavailable Abraham Tierney Attending Unavailable [facility] Primary Care Unavailable Gerber, Mathieu Referring Unavailable Gerber, Mathieu Attending Unavailable [facility] Primary Care Unavailable Megan Macario Referring Unavailable RuMegan caldwell Attending Unavailable [facility] Primary Care Unavailable Eduardo Sweet Attending Unavailable Eduardo Sweet Referring Unavailable [facility] Primary Care Unavailable Tierra Perdomo Attending Unavail able Tierra Perdomo Referring Unavail able [facility] Primary Care Unavailable Julianna Hood Attending Unavailable Kiara, Julianna Referring Unavailable [facility] Primary Care Unavailable Edgar Dee Attending Unavailable Yola Canales Referring Unavailable [facility] Primary Care Unavailable Narda Prather Admitting Unavailable Narda Prather Consulting Unavailable Chilango Wheeler Consulting Unavailable Chilango Wheeler Attending Unavailable Devante Ponce Attending Unavailable [facility] Primary Care Unavailable Gerber, Mathieu Referring Unavailable RuMegan caldwell Referring Unavailable Megan Macario Consulting Unavailable Marvin Reeves Attending Unavailable [facility] Primary Care Unavailable Megan Macario Referring Unavailable Marvin Reeves Attending Unavailable [facility] Primary Care Unavailable Talia Lopez Attending Unavailable [facility] Primary Care Unavailable Tierra Perdomo Attending Unavail able Gerber, Mathieu Referring Unavailable Gerber, [facility] Primary Care Unavailable Gerber, Mathieu Referring Unavailable Megan Macario Attending Unavailable [facility] Primary Care Unavailable Gerber, Mathieu Referring Unavailable Roof HARBOR DEPARTMENT MANAGER, Sergey Solares Attending Unavailable [facility] Primary Care Unavailable Megan Macario Attending Unavailable [facility] Primary Care Unavailable Gerber, Mathieu Referring Unavailable Roof HARBOR DEPARTMENT MANAGER, Sergey Solares Attending Unavailable [facility] Primary Care Unavailable Gerber, Mathieu Referring Unavailable Gerber, Mathieu Referring Unavailable RuMegan caldwell Attending Unavailable [facility] Primary Care Unavailable Gerber, Mathieu Referring Unavailable Roof HARBOR DEPARTMENT MANAGER, Sergey Sloares Attending Unavailable [facility] Primary Care Unavailable Tierra Perdomo Attending Unavail able Gerber, Mathieu Referring Unavailable [facility] Primary Care Unavailable Gerber, [facility] Referring Unavailable Eduardo Sweet Attending Unavailable [facility] Primary Care Unavailable Chilango Wheeler Attending Unavailable [facility] Primary Care Unavailable Summer Chilango Admitting Unavailable Lucía Pulido Consulting Unavailable Narda Kebede Attending Unavailable [facility] Primary Care Unavailable Chilango Wheeler Consulting Unavailable Narda Kebede Consulting Unavailable Miley Rodriguez Attending Unavailable Sara Landry Admitting Unavailable Sara Landry Consulting Unavailable [facility] Primary Care Unavailable Miley Rodriguez Consulting Unavailable Sara Landry Attending Unavailable [facility] Primary Care Unavailable Reji Smith Attending Unavailable Narda Prather Attending Unavailable Summer, Chilango Admitting Unavailable Lucía Pulido Consulting Unavailable Narda Kebede Attending Unavailable [facility] Primary Care Unavailable Summer Chilango Consulting Unavailable [facility], MATHIEU J Attending Unavailable [facility] Primary Care Unavailable ANOOP PHILIP Attending Unavailable [...] (antibiotic) (2 sources) Amoxicillin Drug Allergy 05-11-2005 [facility] (20 sources) Amoxicillin; Translations: [AMOXICILLIN] Drug Allergy 05-11-2005 [facility] (1 source) Amoxicillin Drug Allergy 06-11-2025 [facility] Repository Medications Current Medications Medication Drug Class(es) Dates Sig (Normalized) Sig (Original) [id number] 200 actuat albuterol 0.09 mg/actuat metered dose [...] mouth twice daily. [facility] 1 tablet by [facility]. Take 1 tablet by [facility] two times a day. cholecalciferol 0.05 mg [...] on above: Take 1 capsule by [facility] once daily. doxycycline hyclate 100 mg oral [...] th every 12 hours. Prescribed by outside cartography professor Take 150 mg by mouth twice daily. [...] Start: 04-21-2021 End: 09-23-2021 insulin glargine (LANTUS AMRGARET OSTAR U-100 INSULIN) 100 unit/mL (3 mL) [...] mouth once daily. Take 1 tablet by [facility] once daily. tamsulosin hydrochloride 0.4 mg oral capsule (20 sources) alpha-Adrenergic Salvador Start: 07-10-2024 take 1 capsule by mouth twice daily Start: 07-08-2024 take 1 capsule by [facility] every twelve hours tamsulosin (FLOMAX) 0.4 mg [...] Start: 10-24-2023 take 1 capsule by [facility] once daily Turmeric Root Extract 500 mg capsule Active 1000 mg PO DAILY October 24, 2023 1:00am viatmin Start: 10-24-2023 take 1 capsule by [facility] once daily Turmeric Root Extract 500 mg [...] Comment on above: Take 1 capsule by [facility] three times daily as needed [...] complication, with long-term current use of insulin ([facility]) Inject 22 Units subcutaneously three times [...] complication, with long-term current use of insulin ([facility]) Inject 15 Units subcutaneously three times [...] 0.9% 10 mL injection (DEFINITY) polymyxin b [id number] unt/ml / trimethoprim 1 mg/ml ophthalmic solution [...] 2024 1:00am September 23, 2024 4:56pm sennosides, fpc 8.6 mg oral tablet (20 sources) Start: [...] coronary artery; Translations: [Atherosclerotic heart disease of [place] coronary artery without angina pectoris] Onset: 06-06-2023 [...] sources) Long-term current use of anticoagulant; Translations: [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 Ordered by cardiology Blood-Glucose Sensor ([employer] G7 SENSOR) sayra Apply new sensor every ten (10) days. metFORMIN ER (GLUCOPHAGE XR) 500 mg 24 hr tablet Take 2 tablets by mouth two times a day before meals. atorvastatin (LIPITOR) 20 mg ta (more content not included)... Normal [facility] CYTOLOGY NON-GYNon 5 AP DISCLAIMER Normal [facility] Comment on above: Order Comment: Speci men Type: URINE SPECIMENOrdering Facility: [facility] Address: [address] [place] [address] Result Comment: Miguel pederson Developed Test (LDT) Disclaimer: Performance characteristics of immunohistochemical, immunofluorescent, and chromogenic in-situ hybridization tests have been determined by the performing laboratory within the [facility] Department of Pathology and Laboratory Medicine ([facility], [facility], [facility], [facility], [facility], [facility], or [facility]) in a manner consistent with CLIA requirements. One or more of these tests may not have been cleared or approved by the FDA. The [facility] Department of Pathology and Laboratory Medicine is regulated under CLIA as qualified to perform high-complexity testing. These tests are used for clinical purposes. These should not be regarded as investigational or for research. Positive and negative controls stain appropriately. Performed By: #### C VAISHNAVI ####[facility] LABCLIA [id number] [place] [address] [place] CASE REPORT Normal [facility] Comment on above: Order Comment: Speci men Type: URINE SPECIMENOrdering Facility: [facility] Address: [address] [place] [address] Result Comment: [facility] Cytology Report Case: [id number] Authorizing Provider: Anoop Philip MD Collected: 07/24/2025 10:51 AM Ordering Location: Urology Received: 07/24/2025 03:00 PM Pathologist: Ekaterina Jain MD Specimen: Urine, Cystoscopic Performed By: #### C YTONON ####[facility] LABCLIA [id number] [place] [address] [place] CLINICAL HISTORY Bladder cancer, new tumor Normal [facility] Comment on above: Order Comment: Speci men Type: URINE SPECIMENOrdering Facility: [facility] Address: [address] [place] [address] Performed By: #### C YTONON ####[facility] LABCLIA [id number] [address] STATES OF [facility] FINAL DIAGNOSIS Normal [facility] Comment on above: Order Comment: Speci men Type: URINE SPECIMENOrdering Facility: [facility] Address: [address] [place] [address] Result Comment: A - Urine, Cystoscopic Negative for high-grade urothelial carcinoma. at 1555 EST Performed By: #### C YTONON ####[facility] LABCLIA [id number] [address] [place] FINAL PERFORMING LAB Normal [facility] Comment on above: Order Comment: Speci men Type: URINE SPECIMENOrdering Facility: [facility] Address: [address] [place] [address] Result Comment: Tech nical component, welder apprentice combination screening performed at: [facility], [address] [place] [address] CLIA: [id number] Diagnostic interpretation performed at: [facility], [address] [place] [address], [address]th [place] [address] CLIA# [id number] [employer] Dual Rate Supervisor: Chris Dodson MD Performed By: #### C YTONON ####[facility] LABCLIA [id number] [place] [address] [place] GROSS DESCRIPTION Normal [facility] Comment on above: Order Comment: Speci men Type: URINE SPECIMENOrdering Facility: [facility] Address: [address] [place] [address] Result Comment: ARoxanna hortae, Cystoscopic 10 cc clear light yellow fluid . ThinPrep prepared. Performed By: #### C YTONON ####[facility] LABCLIA [id number] [place] [address] [place] 25(OH)D3 [facility] 2024 25-hydroxyvitamin D3 [Mass/Vol] 41.2 ng/mL Normal 31.0-80.0 [facility] Comment on above: Order Comment: Speci men Type: BLOOD SPECIMEN Ordering Facility: [facility] Address: [address] [place] [address] Performed By: #### 1 989-3 #### [facility] CLIA [id number] [address] [place] [address] [place] ALBUMIN/CREATININE RATIO, UR INEon 06-25-2025 Albumin DL <= 20 mg/L (U) [Mass/Vol] 31.2 mg/L Normal [facility] Comment on above: Order Comment: Speci men Type: URINE SPECIMEN Ordering Facility: [facility] Address: [address] [place] [address] Performed By: #### U ACR #### [facility] CLIA [id number] [address] [place] [address] [place] Albumin/Creatinine (U) [Mass ratio] 44 mg/g High <30 [facility] Comment on above: Order Comment: Speci men Type: URINE SPECIMEN Ordering Facility: [facility] Address: [address] [place] [address] Result Comment: Adul t Male and Female Nephrotic Criteria: <30 mg/g is considered normal to mildly increased 30-300 mg/g is considered moderately increased >300 mg/g is considered severely increased KDIGO. (2013). KDIGO 2012 Clinical Practice Guideline for the Evaluation and Management of Chronic Kidney Disease. Official Journal of the International Society of Nephrology, 3(1), 1-150. Performed By: #### U ACR #### [facility] CLIA [id number] [address] [place] [address] [place] Creatinine (U) [Mass/Vol] 70.9 mg/dL Normal 20.0-300.0 [facility] Comment on above: Order Comment: Speci men Type: URINE SPECIMEN Ordering Facility: [facility] Address: [address] [place] [address] Performed By: #### U ACR #### [facility] CLIA [id number] [address] [place] [address] [place] Basic metabolic 2000 panelon 06-25-2025 Anion gap [Moles/Vol] 12 mmol/L Normal 8-[address] [facility] Comment on above: Order Comment: Speci men Type: BLOOD SPECIMEN Ordering Facility: [facility] Address: [address] [place] [address] Performed By: #### 1 23-9, , 2132-05 #### [facility] CLIA [id number] [address] [place] [address] [place] Calcium [Mass/Vol] 9.6 mg/dL Normal 8.5-10.2 [facility] Comment on above: Order Comment: Speci men Type: BLOOD SPECIMEN Ordering Facility: [facility] Address: [address] [place] [address] Performed By: #### 1 9123-9, , 2132-05 #### [facility] CLIA [id number] [address] [place] [id number] [place] Chloride [Moles/Vol] 103 mmol/L Normal 98-107 [facility] Comment on above: Order Comment: Speci men Type: BLOOD SPECIMEN Ordering Facility: [facility] Address: [address] [place], [place] [address] Performed By: #### 1 23-9, , 2132-05 #### [facility] CLIA [id number] [address] [place] [address] [place] CO2 [Moles/Vol] 24 mmol/L Normal 22-30 [facility] Comment on above: Order Comment: Speci men Type: BLOOD SPECIMEN Ordering Facility: [facility] Address: [address] [place] [address] Performed By: #### 1 9, , 2132-05 #### [facility] CLIA [id number] [address] [place] [address] [place] Creatinine [Mass/Vol] 0.97 mg/dL Normal 0.73-1.[address] [facility] Comment on above: Order Comment: Speci men Type: BLOOD SPECIMEN Ordering Facility: [facility] Address: [address] [place] [address] Performed By: #### 1 9, , 2132-05 #### [facility] CLIA [id number] [address] [place] eGFRcr SerPlBld CKD-EPI 2020 78 mL/min/1.73m??? Normal >=60 [facility] Comment on above: Order Comment: Speci men Type: BLOOD SPECIMEN Ordering Facility: [facility] Address: [address] [place] [address] Result Comment: Racquel mated Glomerular Filtration Rate [...] 23-9, , 2132-05 #### [facility] CLIA [id number] [address] [place] Glucose [Mass/Vol] 84 mg/dL Normal 74-99 [facility] Comment on above: Order Comment: Speci men Type: BLOOD SPECIMEN Ordering Facility: [facility] Address: [address] [place] [id number] Result Comment: The [place] Diabetes Association (ADA) provides guidance for cutoff [...] Standards of Medical Care in Diabetes 2016, [place] [employer]. Diabetes Care. 2016.39(Suppl 1). Performed By: #### 1 239, , 2132-05 #### [facility] CLIA [id number] [address] [place] [address] [place] Potassium [Moles/Vol] 5.1 mmol/L Normal 3.7-5.[address] [facility] Comment on above: Order Comment: Salvatore de la rosa Type: BLOOD SPECIMEN Ordering Facility: [facility] Address: [address] [place] [address] Performed By: #### 1 9, , 2132-05 #### [facility] CLIA [id number] [address] [place] [address] [place] Sodium [Moles/Vol] 139 mmol/L Normal 136-144 [facility] Comment on above: Order Comment: Salvatore de la rosa Type: BLOOD SPECIMEN Ordering Facility: [facility] Address: [address] [id number] Performed By: #### 1 239, , 2132-05 #### [facility] CLIA [id number] [address] [place] [address] [place] Urea nitrogen [Mass/Vol] 20 mg/dL Normal 9-24 [facility] Comment on above: Order Comment: Salvatore de la rosa Type: BLOOD SPECIMEN Ordering Facility: [facility] Address: [address] [place] [address] Performed By: #### 1 9123-9, 33728-8, 2132-9 #### [facility] CLIA [id number] [address] [place] [address] [facility] CNOVon 06-25-2025 CNOV Office Visit (UROLMD ) ----- FAISAL ALARCON ([id number]) 1945 M Date Time Provider Department 06/25/25 11:40 AM ANOOP PHILIP UROONEYDA During your visit today, we recorded the following information about you: Weight Height 110.7 kg 1.854 m Anoop Philip MD 06/25/2025 12:17 PM Signed NEW PATIENT ENCOUNTER HISTORY OF PRESENT ILLNESS: Faisal Alarcon is a 80 year old with 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 Patient's daughter acted as primary historian. [...] every afternoon. Ordered by cardiology Blood-Glucose Sensor ([employer] G7 SENSOR) sayra Apply new sensor every [...] Sister C (more content not included)... Normal [facility] HbA1c (Bld)on 06-25-2025 Average glucose Estimated from glycated hemoglobin (Bld) [Mass/Vol] 143 mg/dL Normal [facility] Comment on above: Order Comment: Speci men Type: BLOOD SPECIMEN Ordering Facility: [facility] Address: [address] [place] [address] Result Comment: eAG: (Estimated average glucose) is a calculated value from HgbA1c and is small business representative of the average blood glucose level in the last 2-3 month period. Performed By: #### 5 5454-3 #### [facility] CLIA [id number] [address] [place] [address] [place] [address] [place] HbA1c (Bld) [Mass fraction] 6.6 % High 4.3-5.6 [facility] Comment on above: Order Comment: Speci men Type: BLOOD SPECIMEN Ordering Facility: [facility] Address: [address] [place] [address] Result Comment: Amer [place] Diabetes Association guidelines indicate that patients with HgbA1c in the range 5.7-6.4% are at increased risk for development of diabetes, and intervention by lifestyle modification may be beneficial. HgbA1c greater or equal to 6.5% is considered diagnostic of diabetes. Performed By: #### 5 5454-3 #### [facility] CLIA [id number] [address] [place] [address] [place] Magnesium SerPl-ncon 06-25 Magnesium [Mass/Vol] 2.4 mg/dL High 1.7-2.3 [facility] Comment on above: Order Comment: Speci men Type: BLOOD SPECIMEN Ordering Facility: [facility] Address: [address] [place] [address] Performed By: #### 1 9123-9, 90073-7, 2132-9 #### [facility] CLIA [id number] [address] [place] [address] [place] PSA SerPl-ncon 06-25-2025 Prostate specific Ag [Mass/Vol] 1.17 ng/mL Normal <2.60 [facility] Comment on above: Order Comment: Speci men Type: BLOOD SPECIMEN Ordering Facility: [facility] Address: [address] [place] [address] Result Comment: Tota l PSA test methodology used is the Electrochemiluminescence Immunoassay by [employer]. Total PSA values by differing methodologies cannot be interchanged. Performed By: #### 2 857-1 #### [facility] CLIA [id number] [address] [place] [address] [place] Vit B12 SerPl-mCncon 025 Cobalamin (Vitamin B12) [Mass/Vol] 1738 pg/mL High 232-1245 [facility] Comment on above: Order Comment: Speci men Type: BLOOD SPECIMEN Ordering Facility: [facility] Address: [address] [place] [address] Performed By: #### 1 9123-9, 37295-1, 2132-9 #### [facility] CLIA [id number] [address] [place] [address] [place] [facility] CNPNon 06-15-2025 CNPN Telephone (FAMWS) ----- FAISAL ALARCON ([id number]) 1945 M Date Time Provider Department 06/15/25 MATHIEU VIRGEN [facility] During your visit today, we recorded the following information about you: Jaylene Henley LPN 06/15/2025 3:19 PM Signed View External Labs - MG, B12, Vit D [ID [id number]] View External Labs - Chemistry [ID [id number]] Mathieu Virgen MD 06/15/2025 3:31 PM Signed [...] patient will have recheck BMP completed at [facility] in 3 weeks. Order faxed to [facility]. NILDA Rodriguez William J, MD 06/17/2025 [...] [N28.9] Order(s):BASIC METABOLIC PANEL [SQBMP] Order #: [id number] FUTURE Prescriptions as of 06/18/2025 - apixaban [...] 06-12-2025 Anion gap [Moles/Vol] 12 mmol/L 01-29 [facility] BUN/creatinine ratioOrdered By: Eduardo Sweet on 06-12-2025 Urea nitrogen/Creatinine [Mass ratio] 17.0 mg/mg 07-06 [facility] Basic Metabolic Profile (BMP )on 06-12-2025 BUN/CRE 17.0 RATIO Normal 07-06 [facility] Comment on above: Performed By: #### L 500.2500, L503.7505 ####[facility] [address] [place], [address] Calcium [Mass/Vol] 9.4 mg/dL Normal 7.6-11.0 [facility] Comment on above: Performed By: #### L 500.2500, L503.7505 ####[facility] [address] [place], [address] Chloride [Moles/Vol] 102 mmol/L Normal 98-108 [facility] Comment on above: Performed By: #### L 500.2500, L503.7505 ####[facility] [address] [place], [address] CO2 [Moles/Vol] 22.6 mmol/L Normal 21.0-32.0 [facility] Comment on above: Performed By: #### L 500.2500, L503.7505 ####[facility] [address] [place], [address] Creatinine [Mass/Vol] 1.30 mg/dL High 0.70-1.20 [facility] Comment on above: Performed By: #### L 500.2500, L503.7505 ####[facility] [address] [place], [address] GAP 12 Normal 01-29 [facility] Comment on above: Performed By: #### L 500.2500, L503.7505 ####[facility] [address] [place], [address] GFR/1.73 sq M.predicted among non-blacks MDRD (S/P/Bld) [Vol rate/Area] 55 mL/min/{1.73_m2} Low >60 [facility] Comment on above: Result Comment: mL/m in/1.73m2 CKD-EPI Creatinine Equation (2020) Performed By: #### L 500.2500, L503.7505 ####[facility] [address] [place], [address] Glucose [Mass/Vol] 121 mg/dL High 70-99 [facility] Comment on above: Performed By: #### L 500.2500, L503.7505 ####[facility] [address] [place], [address] Potassium [Moles/Vol] 4.6 mmol/L Normal 3.3-5.1 [facility] Comment on above: Performed By: #### L 500.2500, L503.7505 ####[facility] [address] [place], [address] Sodium [Moles/Vol] 137 mmol/L Normal 133-145 [facility] Comment on above: Performed By: #### L 500.2500, L503.7505 ####[facility] [address] [place], [address] Urea nitrogen [Mass/Vol] 22 mg/dL High 4-19 [facility] Comment on above: Performed By: #### L 500.2500, L503.7505 ####[facility] [address] [place], [address] CNOVon 06-12-2025 CNOV Office Visit (FAMPWS ) ----- FAISAL ALARCON ([id number]) 1945 M Date Time Provider Department 06/12/25 [...] urologist. We will refer you to a [facility] urologist for ongoing care. - You [...] - We will refer you to a [facility] urologist for ongoing bladder cancer follow-up. [...] pain. HPI Chest Pain: - Hospitalized at [facility] 05/31-06/01 for chest pain. - Cardiology consult performed; serial cardiac enzymes, monitoring, and echocardiogram conducted. - D-dimer: 0.31. - Echocardiogram (05/31) showed mild concentric LVH, LVEF 65%, stage 1 diastolic dysfunction, mild left atrial enlargement, and mild 1+ mitral valve insufficiency. - Cardiology determined no further cardiac workup was needed. - Pepcid discontinued; Protonix prescribed. 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 - [...] Currently o (more content not included)... Normal [facility] Carbon dioxide, total [Moles /volume] in Central venous bloodOrdered By: Eduardo Sweet on 06-12-2025 CO2 [Moles/Vol] 22.6 mmol/L 21.0-32.0 [facility] Chloride assayOrdered By: Ria Sweet on 06-12-2025 Chloride [Moles/Vol] 102 mmol/L 98-108 [facility] Glomerular filtration rate ( GFR) estimation/1.73 sq m using serum, plasma, or whole bOrdered By: Eduardo Sweet on 06-12-2025 GFR/1.73 sq M.predicted among non-blacks MDRD (S/P/Bld) [Vol rate/Area] 55 mL/min/{1.73_m2} Low >60 [facility] Comment on above: mL/min/1.73m2 CKD-EP I Creatinine Equation (2020) Hemoglobin A1con 06-12-2025 HbA1c (Bld) [Mass fraction] 6.5 % High <=5.6 [facility] Comment on above: Result Comment: Norm al < 5.7 % Prediabetic 5.7 - 6.4 % Diabetic >or= 6.5 % Please note range changes. Performed By: #### L 501.9985, L501.5200, L502.0250, L503.0106, L506.1001 ####[facility] [address] [place], [address] Hemoglobin A1c percentageOrd ered By: Mathieu Virgen on 06-12-2025 HbA1c (Bld) [Mass fraction] 6.5 % High <5.7 [facility] Comment on above: Normal < 5.7 % Predi abetic 5.7 - 6.4 % Diabetic >or= 6.5 % Please note range changes. Magnesiumon 06-12-2025 Magnesium [Mass/Vol] 2.5 mg/dL High 1.5-2.2 [facility] Comment on above: Performed By: #### L 501.9985, L501.5200, L502.0250, L503.0106, L506.1001 ####[facility] [address] [place], [address] Magnesium measurement (mass/ volume)Ordered By: Mathieu Virgen on 06-12-2025 Magnesium (Unsp spec) [Mass/Vol] 2.5 mg/dL High 1.5-2.2 [facility] Microalb:Creat Ratio,Random URon 06-12-2025 MALB:CREAT Normal <30 mg/g CRE [facility] Comment on above: Result Comment: UTO Performed By: #### L 501.9985, L501.5200, L502.0250, L503.0106, L506.1001 ####[facility] [address] [place], [address] MICROALBUMIN,UR Normal <20 mg/L [facility] Comment on above: Result Comment: UTO Performed By: #### L 501.9985, L501.5200, L502.0250, L503.0106, L506.1001 ####[facility] [address] [place], [address] UR CREAT Normal 39.00-259. 00 [facility] Comment on above: Result Comment: UTO Performed By: #### L 501.9985, L501.5200, L502.0250, L503.0106, L506.1001 ####[facility] [address] [place], [address] Natriuretic peptide.B prohor cuate N-Terminal [Mass/volume] in Serum or PlasmaOrdered By: Eduardo Sweet on 06-12-2025 Natriuretic peptide.B prohormone N-Terminal [Mass/Vol] 318 pg/mL <1800 [facility] Comment on above: Heart Failure Unlike ly: < 300 pg/mLHeart Failure Likely< 50 Years: > 450 pg/mL50-75 Years: > 900 pg/mL>75 Years: > 1800 pg/mL Potassium measurement (mass/ volume)Ordered By: Eduardo Sweet on 06-12-2025 Potassium (Unsp spec) [Mass/Vol] 4.6 mmol/L 3.3-5.1 [facility] Pro- Brain NATRIURETIC PEPTI Suyapa 06-12-2025 Natriuretic peptide B (Bld) [Mass/Vol] 318 pg/mL Normal <=1800 [facility] Comment on above: Result Comment: Hear t Failure Unlikely: < 300 pg/mLHeart Failure Likely< 50 Years: > 450 pg/mL50-75 Years: > 900 pg/mL>75 Years: > 1800 pg/mL Performed By: #### L 500.2500, L503.7505 ####[facility] [address] [place], [address] Serum creatinine measurement (mass/volume)Ordered By: Eduardo Sweet on 06-12-2025 Creatinine [Mass/Vol] 1.30 mg/dL High 0.70-1.20 [facility] Serum glucose measurement (m ass/volume)Ordered By: Eduardo Sweet on 06-12-2025 Glucose [Mass/Vol] 121 mg/dL High 70-99 [facility] Serum or plasma calcium nahomy urement (mass/volume)Ordered By: Eduardo Sweet on 06-12-2025 Calcium [Mass/Vol] 9.4 mg/dL 7.6-11.0 [facility] Serum or plasma urea nitroge n measurement (mass/volume)Ordered By: Eduardo Sweet on 06-12-2025 Urea nitrogen [Mass/Vol] 22 mg/dL High 4-19 [facility] Sodium levelOrdered By: Christophe Sweet on 06-12-2025 Sodium [Moles/Vol] 137 mmol/L 133-145 [facility] Vitamin B12on 06-12-2025 Cobalamin (Vitamin B12) [Mass/Vol] pg/mL High 180-914 [facility] Comment on above: Performed By: #### L 501.9985, L501.5200, L502.0250, L503.0106, L506.1001 ####[facility] [address] [place], [address] Vitamin D,25 Hydroxyon 06-12 Vitamin D 25-OH 37.4 ng/mL Normal 30-100 [facility] Comment on above: Result Comment: Rolanda min D StatusDeficiency: <20 ng/mL (50nmol/L)Insufficiency: 20-30 ng/mL (50-75 nmol/L)Sufficiency: 30-100 ng/mL (75-250 nmol/L)Toxicity: >100 ng/mL (>250 nmol/L) Performed By: #### L 501.9985, L501.5200, L502.0250, L503.0106, L506.1001 ####[facility] [address] [place], [address] Cardiology Visit Reporton Cardiology Visit Report Normal [facility] Glucoseon 06-02-2025 FINGERSTICK GLU 186 mg/dL High 74-106 [facility] Comment on above: Result Comment: URSULA GEMENT OF PATIENT CARE PER NURSING PROTOCOL Performed By: #### L 501.080 ####[facility] [address] [place], [address] FINGERSTICK GLU 188 mg/dL High 74-106 [facility] Comment on above: Result Comment: URSULA GEMENT OF PATIENT CARE PER NURSING PROTOCOL Performed By: #### L 501.080 ####[facility] [address] [place], [address] 12 Lead EKGon 06-01-2025 12 Lead EKG Normal [facility] Anion gap in Serum or Plasma Ordered By: Chilango Wheeler on 06-01-2025 Anion gap [Moles/Vol] 12 mmol/L - [facility] BUN/creatinine ratioOrdered By: Chilango Wheeler on 06-01-2025 Urea nitrogen/Creatinine [Mass ratio] 24.7 mg/mg High - [facility] Basic Metabolic Profile (BMP )on 06-01-2025 BUN/CRE 24.7 RATIO High - [facility] Comment on above: Performed By: #### L 100.0500, L500.2500 ####[facility] [address] [place], [address] Calcium [Mass/Vol] 9.3 mg/dL Normal 7.6-11.0 [facility] Comment on above: Performed By: #### L 100.0500, L500.2500 ####[facility] [address] [place], [address] Chloride [Moles/Vol] 102 mmol/L Normal 98-108 [facility] Comment on above: Performed By: #### L 100.0500, L500.2500 ####[facility] [address] [place], [address] CO2 [Moles/Vol] 22.2 mmol/L Normal 21.0-32.0 [facility] Comment on above: Performed By: #### L 100.0500, L500.2500 ####[facility] [address] [place], [address] Creatinine [Mass/Vol] 1.02 mg/dL Normal 0.70-1.20 [facility] Comment on above: Performed By: #### L 100.0500, L500.2500 ####[facility] [address] [place], [address] ECRCL 75.15 ml/min Normal 50-250 [facility] Comment on above: Performed By: #### L 100.0500, L500.2500 ####[facility] [address] [place], [address] GAP 12 Normal 5-15 [facility] Comment on above: Performed By: #### L 100.0500, L500.2500 ####[facility] [address] [place], [address] GFR/1.73 sq M.predicted among non-blacks MDRD (S/P/Bld) [Vol rate/Area] 74 mL/min/{1.73_m2} Normal >60 [facility] Comment on above: Result Comment: mL/m in/1.73m2 CKD-EPI Creatinine Equation (2020) Performed By: #### L 100.0500, L500.2500 ####[facility] [address] [place], [address] Glucose [Mass/Vol] 148 mg/dL High 70-99 [facility] Comment on above: Performed By: #### L 100.0500, L500.2500 ####[facility] [address] [place], [address] Potassium [Moles/Vol] 4.2 mmol/L Normal 3.3-5.1 [facility] Comment on above: Performed By: #### L 100.0500, L500.2500 ####[facility] [address] [place], [address] Sodium [Moles/Vol] 136 mmol/L Normal 133-145 [facility] Comment on above: Performed By: #### L 100.0500, L500.2500 ####[facility] [address] [place], [address] Urea nitrogen [Mass/Vol] 25 mg/dL High 4-19 [facility] Comment on above: Performed By: #### L 100.0500, L500.2500 ####[facility] [address] [place], [address] Bedside Glucoseon 06-01-2025 FINGERSTICK GLU 228 mg/dL High 74-106 [facility] Comment on above: Result Comment: URSULA GEMENT OF PATIENT CARE PER NURSING PROTOCOL Performed By: #### L 501.080 ####[facility] [address] [place], [address] FINGERSTICK GLU 327 mg/dL High 74-106 [facility] Comment on above: Result Comment: URSULA GEMENT OF PATIENT CARE PER NURSING PROTOCOL Performed By: #### L 501.080 ####[facility] [address] [place], [address] FINGERSTICK GLU 175 mg/dL High 74-106 [facility] Comment on above: Result Comment: URSULA GEMENT OF PATIENT CARE PER NURSING PROTOCOL Performed By: #### L 501.080 ####[facility] [address] [place], [address] FINGERSTICK GLU 183 mg/dL High 74-106 [facility] Comment on above: Result Comment: URSULA GEMENT OF PATIENT CARE PER NURSING PROTOCOL Performed By: #### L 501.080 ####[facility] [address] [place], [address] FINGERSTICK GLU 163 mg/dL High 74-106 [facility] Comment on above: Result Comment: URSULA GEMENT OF PATIENT CARE PER NURSING PROTOCOL Performed By: #### L 501.080 ####[facility] [address] [place], [address] CBC-Complete Blood Cnt No Di ffon 06-01-2025 Erythrocyte distribution width (RBC) [Ratio] 15.6 % High 11.6-14.6 [facility] Comment on above: Performed By: #### L 100.0500, L500.2500 ####[facility] [address] [place], [address] Hematocrit (Bld) [Volume fraction] 43.6 % Normal 40-54 [facility] Comment on above: Performed By: #### L 100.0500, L500.2500 ####[facility] [address] [place], [address] Hemoglobin (Bld) [Mass/Vol] 14.7 g/dL Normal 13.0-16.5 [facility] Comment on above: Performed By: #### L 100.0500, L500.2500 ####[facility] [address] [place], [address] MCH (RBC) [Entitic mass] 27.5 pg Normal 27.0-32.0 [facility] Comment on above: Performed By: #### L 100.0500, L500.2500 ####[facility] [address] [place], [address] MCHC (RBC) [Mass/Vol] 33.7 g/dL Normal 32-36 [facility] Comment on above: Performed By: #### L 100.0500, L500.2500 ####[facility] [address] [place], [address] MCV (RBC) [Entitic vol] 81.5 fL Normal 80-94 [facility] Comment on above: Performed By: #### L 100.0500, L500.2500 ####[facility] [address] [place], [address] Platelet mean volume (Bld) [Entitic vol] 10.1 fL Normal 6.2-12.0 [facility] Comment on above: Performed By: #### L 100.0500, L500.2500 ####[facility] [address] [place], [address] Platelets (Bld) [#/Vol] 264 10*3/uL Normal 150-450 [facility] Comment on above: Performed By: #### L 100.0500, L500.2500 ####[facility] [address] [place], [address] RBC (Bld) [#/Vol] 5.35 10*6/uL Normal 4.6-6.2 [facility] Comment on above: Performed By: #### L 100.0500, L500.2500 ####[facility] [address] [place], [address] RDW SD 46.3 fl High 35.1-43.9 [facility] Comment on above: Performed By: #### L 100.0500, L500.2500 ####[facility] [address] [place], [address] WBC (Bld) [#/Vol] 11.8 10*3/uL High 4.4-11.0 [facility] Comment on above: Performed By: #### L 100.0500, L500.2500 ####[facility] [address] [place], [address] Carbon dioxide, total [Moles /volume] in Central venous bloodOrdered By: Chilango Wheeler on 06-01-2025 CO2 [Moles/Vol] 22.2 mmol/L 21.0-32.0 [facility] Chloride assayOrdered By: Kevin Wheeler on 06-01-2025 Chloride [Moles/Vol] 102 mmol/L 98-108 [facility] Consultation - Cardiologyon 06-01-2025 Consultation - Cardiology Normal [facility] Electrocardiogram reportOrde red By: Gabriel Lin on 06-01-2025 EKG study [facility] Services [address] [place] [address] 12 Lead EKG 06/01/25 0532 MR#: [id number] Acct: [id number] Name: FAISAL ALARCON Rep #:[id number] : 1945 80 From: Gabriel ramachandran MD [...] DATA IS UNCONFIRMED Confirmed by Gabriel Lin ([id number]), business editor CARLOTA SUTTON ([id number]) on 06/01/2025 1:27:31 PM Referred By: Confirmed By: Gabriel Lin 06/01/251326 Date _ Gabriel Lin MD CC: Dr. Narda Kebede MD; Dr. Mathieu Virgen MD ~ Signed [facility] Work Phone: EKG study [facility] Cardiovascular Services [address] [place] [address] 12 Lead EKG 05/31/25 1111 MR#: [id number] Acct: [id number] Name: FAISAL ALARCON Rep #:[id number] : 1945 80 From: Gabriel ramachandran MD Attending Dr: Dr. Narda Kebede MD Status: ADM CARLOS Ordering Dr: Marceol Hernandez DO Date: 0 05/31/25 Location: [facility] Sex: M C Admitted: 05/31/25 Test Reason [...] block Abnormal ECG Confirmed by Gabriel Lin ([id number]), business editor CARLOTA SUTTON ([id number]) on 06/01/2025 1:25:48 PM Referred By: NIKUNJ/BETSY Confirmed By: Gabriel Lin 06/01/25 132 Date _ Gabriel Lin MD CC: Dr. Narda Kebede MD; Dr. Marcelo Hernandez DO; Dr. Mathieu Virgen MD ~ Signed [facility] Work Phone: Erythrocyte distribution wid th ratioOrdered By: Chilango Wheeler on 06-01-2025 Erythrocyte distribution width (RBC) [Ratio] 15.6 % High 11.6-14.6 [facility] Erythrocyte distribution wid th standard deviationOrdered By: Chilango Wheeler on 06-01-2025 Erythrocyte distribution width (RBC) [Ratio] 46.3 fl High 35.1-43.9 [facility] Glomerular filtration rate ( GFR) estimation/1.73 sq m using serum, plasma, or whole bOrdered By: Chilango Wheeler on 06-01-2025 GFR/1.73 sq M.predicted among non-blacks MDRD (S/P/Bld) [Vol rate/Area] 74 mL/min/{1.73_m2} >60 [facility] Comment on above: mL/min/1.73m2 CKD-EP I Creatinine Equation (2020) [facility] de[facility]dered By: Narda Kebede on 06-01-2025 Glucose [Mass/Vol] 228 mg/dL High 74-106 [facility] Comment on above: MANAGEMENT OF PATIEN T CARE PER NURSING PROTOCOL Glucose [Mass/Vol] 327 mg/dL High 74-106 [facility] Comment on above: MANAGEMENT OF PATIEN T CARE PER NURSING PROTOCOL Hematocrit Auto (Bld) [Volum e fraction]Ordered By: Chilango Wheeler on 06-01-2025 Hematocrit (Bld) [Volume fraction] 43.6 % 40-54 [facility] Hemoglobin measurementOrdere d By: Chilango Wheeler on 06-01-2025 Hemoglobin (Bld) [Mass/Vol] 14.7 g/dL 13.0-16.5 [facility] Limited echocardiogram repor tOrdered By: Talia Lopez on 06-01-2025 Study report [facility] [address] [place] [address] Echo, Limited Study 06/01/25 0857 MR#: [id number] Acct: [id number] Name: FAISAL ALARCON Rep #:[id number] : 1945 80 From: Talia Lopez MD Attending Dr: Dr. Narda Kebede MD Status: ADM CARLOS Ordering Dr: Chilango Wheeler DO Da te: 05/31/25 Location: [facility] Sex: M C Admitted: 05/31/25 Reason For [...] ~ Date Dictated: 06/01/25856 Date Transcribed: 06/01/251004 Manager Sourcing: Signed [facility] Work Phone: MCV (mean corpuscular volume ) determinationOrdered By: Chilango Wheeler on 06-01-2025 MCV (RBC) [Entitic vol] 81.5 fL 80-94 [facility] Mean corpuscular hemoglobin (MCH) determinationOrdered By: Chilango Wheeler on 06-01-2025 MCH (RBC) [Entitic mass] 27.5 pg 27.0-32.0 [facility] Mean corpuscular hemoglobin concentration (MCHC) determinationOrdered By: Chilango Wheeler on 06-01-2025 MCHC (RBC) [Mass/Vol] 33.7 g/dL 32-36 [facility] Mean platelet volume determi nationOrdered By: Chilango Wheeler on 06-01-2025 Platelet mean volume (Bld) [Entitic vol] 10.1 fL 6.2-12.0 [facility] Platelet countOrdered By: Kevin Wheeler on 06-01-2025 Platelets (Bld) [#/Vol] 264 10*3/uL 150-450 [facility] Potassium measurement (mass/ volume)Ordered By: Chilango Wheeler on 06-01-2025 Potassium (Unsp spec) [Mass/Vol] 4.2 mmol/L 3.3-5.1 [facility] RBC Auto (Bld) [#/Vol]Ordere d By: Chilango Wheeler on 06-01-2025 RBC (Bld) [#/Vol] 5.35 10*6/uL 4.6-6.2 [facility] Serum creatinine measurement (mass/volume)Ordered By: Chilango Wheeler on 06-01-2025 Creatinine [Mass/Vol] 1.02 mg/dL 0.70-1.20 [facility] Serum glucose measurement (m ass/volume)Ordered By: Chilango Wheeler on 06-01-2025 Glucose [Mass/Vol] 148 mg/dL High 70-99 [facility] Serum or plasma calcium nahomy urement (mass/volume)Ordered By: Chilango Wheeler on 06-01-2025 Calcium [Mass/Vol] 9.3 mg/dL 7.6-11.0 [facility] Serum or plasma urea nitroge n measurement (mass/volume)Ordered By: Chilango Wheeler on 06-01-2025 Urea nitrogen [Mass/Vol] 25 mg/dL High 4-19 [facility] Sodium levelOrdered By: Reji Wheeler on 06-01-2025 Sodium [Moles/Vol] 136 mmol/L 133-145 [facility] White blood cell (WBC) count Ordered By: Chilango Wheeler on 06-01-2025 WBC (Bld) [#/Vol] 11.8 10*3/uL High 4.4-11.0 [facility] 12 Lead EKGon 05-31-2025 12 Lead EKG Normal [facility] Absolute lymphocyte countOrd ered By: Marcelo Hernandez on 05-31-2025 Lymphocytes Auto (Unsp spec) [#/Vol] 1.76 10*3/uL 0.83-4.51 [facility] Absolute neutrophil countOrd ered By: Marcelo Hernandez on 05-31-2025 Neutrophils (Bld) [#/Vol] 7.1 10*3/uL 2.0-7.7 [facility] Anion gap in Serum or Plasma Ordered By: Marcelo Hernandez on 05-31-2025 Anion gap [Moles/Vol] 15 mmol/L 5-15 [facility] Automated lymphocyte count a s percentage of total leukocytesOrdered By: Marcelo Hernandez on 05-31-2025 Lymphocytes/100 WBC Auto (Unsp spec) 17.4 % Low 19-41 [facility] BUN/creatinine ratioOrdered By: Marcelo Hernandez on 05-31-2025 Urea nitrogen/Creatinine [Mass ratio] 25.2 mg/mg High 10-20 [facility] Basic Metabolic Profile (BMP )on 05-31-2025 BUN/CRE 25.2 RATIO High 10-20 [facility] Comment on above: Performed By: #### L 100.0100, L300.8000, L500.2500, L501.4021, L503.7505 ####[facility] [address] [place], [address] Calcium [Mass/Vol] 9.5 mg/dL Normal 7.6-11.0 [facility] Comment on above: Performed By: #### L 100.0100, L300.8000, L500.2500, L501.4021, L503.7505 ####[facility] [address] [place], [address] Chloride [Moles/Vol] 100 mmol/L Normal 98-108 [facility] Comment on above: Performed By: #### L 100.0100, L300.8000, L500.2500, L501.4021, L503.7505 ####[facility] [address] [place], [address] CO2 [Moles/Vol] 20.0 mmol/L Low 21.0-32.0 [facility] Comment on above: Performed By: #### L 100.0100, L300.8000, L500.2500, L501.4021, L503.7505 ####[facility] [address] [place], [address] Creatinine [Mass/Vol] 0.99 mg/dL Normal 0.70-1.20 [facility] Comment on above: Performed By: #### L 100.0100, L300.8000, L500.2500, L501.4021, L503.7505 ####[facility] [address] [place], [address] ECRCL 66.13 ml/min Normal 50-250 [facility] Comment on above: Performed By: #### L 100.0100, L300.8000, L500.2500, L501.4021, L503.7505 ####[facility] [address] [place], [address] GAP 15 Normal 5-15 [facility] Comment on above: Performed By: #### L 100.0100, L300.8000, L500.2500, L501.4021, L503.7505 ####[facility] [address] [place], [address] GFR/1.73 sq M.predicted among non-blacks MDRD (S/P/Bld) [Vol rate/Area] 77 mL/min/{1.73_m2} Normal >60 [facility] Comment on above: Result Comment: mL/m in/1.73m2 CKD-EPI Creatinine Equation (2020) Performed By: #### L 100.0100, L300.8000, L500.2500, L501.4021, L503.7505 ####[facility] [address] [place], [address] Glucose [Mass/Vol] 164 mg/dL High 70-99 [facility] Comment on above: Performed By: #### L 100.0100, L300.8000, L500.2500, L501.4021, L503.7505 ####[facility] [address] [place], [address] Potassium [Moles/Vol] 4.1 mmol/L Normal 3.3-5.1 [facility] Comment on above: Performed By: #### L 100.0100, L300.8000, L500.2500, L501.4021, L503.7505 ####[facility] [address] [place], [address] Sodium [Moles/Vol] 135 mmol/L Normal 133-145 [facility] Comment on above: Performed By: #### L 100.0100, L300.8000, L500.2500, L501.4021, L503.7505 ####[facility] [address] [place], [address] Urea nitrogen [Mass/Vol] 25 mg/dL High 4-19 [facility] Comment on above: Performed By: #### L 100.0100, L300.8000, L500.2500, L501.4021, L503.7505 ####[facility] [address] [place], [address] Basophil percentageOrdered B y: Marcelo Hernandez on 05-31-2025 Basophils/100 WBC (Bld) 0.4 % 0-1 [facility] Glucoseon 05-31-2025 FINGERSTICK GLU 178 mg/dL High 74-106 [facility] Comment on above: Result Comment: URSULA GEMENT OF PATIENT CARE PER NURSING PROTOCOL Performed By: #### L 501.080 ####[facility] [address] [place], [address] FINGERSTICK GLU 168 mg/dL High 74-106 [facility] Comment on above: Result Comment: URSULA GEMENT OF PATIENT CARE PER NURSING PROTOCOL Performed By: #### L 501.080 ####[facility] [address] [place], [address] CBC W/Diff, Automatedon 05-18-2024 Absolute Lymph 1.76 X10 3/uL Normal 0.83-4.51 [facility] Comment on above: Performed By: #### L 100.0100, L300.8000, L500.2500, L501.4021, L503.7505 ####[facility] [address] [place], [address] Absolute Neut 7.1 X10 3/uL Normal 2.0-7.7 [facility] Comment on above: Performed By: #### L 100.0100, L300.8000, L500.2500, L501.4021, L503.7505 ####[facility] [address] [place], [address] Basophils/100 WBC (Bld) 0.4 % Normal 0-1 [facility] Comment on above: Performed By: #### L 100.0100, L300.8000, L500.2500, L501.4021, L503.7505 ####[facility] [address] [place], [address] Eosinophils/100 WBC (Bld) 2.0 % Normal 0-5 [facility] Comment on above: Performed By: #### L 100.0100, L300.8000, L500.2500, L501.4021, L503.7505 ####[facility] [address] [place], [address] Erythrocyte distribution width (RBC) [Ratio] 15.5 % High 11.6-14.6 [facility] Comment on above: Performed By: #### L 100.0100, L300.8000, L500.2500, L501.4021, L503.7505 ####[facility] [address] [place], [address] Hematocrit (Bld) [Volume fraction] 44.8 % Normal 40-54 [facility] Comment on above: Performed By: #### L 100.0100, L300.8000, L500.2500, L501.4021, L503.7505 ####[facility] [address] [place], [address] Hemoglobin (Bld) [Mass/Vol] 15.3 g/dL Normal 13.0-16.5 [facility] Comment on above: Performed By: #### L 100.0100, L300.8000, L500.2500, L501.4021, L503.7505 ####[facility] [address] [place], [address] IG% 0.600 Normal 0.0-0.9 [facility] Comment on above: Result Comment: IG% - Immature Granulocytes (promyelocytes, myelocytes andmetamyelocytes) > 1% indicates that a LEFT SHIFT is Present. Performed By: #### L 100.0100, L300.8000, L500.2500, L501.4021, L503.7505 ####[facility] [address] [place], [address] Lymphocytes/100 WBC (Bld) 17.4 % Low 19-41 [facility] Comment on above: Performed By: #### L 100.0100, L300.8000, L500.2500, L501.4021, L503.7505 ####[facility] [address] [place], [address] MCH (RBC) [Entitic mass] 27.6 pg Normal 27.0-32.0 [facility] Comment on above: Performed By: #### L 100.0100, L300.8000, L500.2500, L501.4021, L503.7505 ####[facility] [address] [place], [address] MCHC (RBC) [Mass/Vol] 34.2 g/dL Normal 32-36 [facility] Comment on above: Performed By: #### L 100.0100, L300.8000, L500.2500, L501.4021, L503.7505 ####[facility] [address] [place], [address] MCV (RBC) [Entitic vol] 80.9 fL Normal 80-94 [facility] Comment on above: Performed By: #### L 100.0100, L300.8000, L500.2500, L501.4021, L503.7505 ####[facility] [address] [place], [address] Monocytes/100 WBC (Bld) 9.6 % Normal 0-10 [facility] Comment on above: Performed By: #### L 100.0100, L300.8000, L500.2500, L501.4021, L503.7505 ####[facility] [address] [place], [address] Neutrophils/100 WBC (Bld) 70.0 % Normal 47-70 [facility] Comment on above: Performed By: #### L 100.0100, L300.8000, L500.2500, L501.4021, L503.7505 ####[facility] [address] [place], [address] Nucleated RBC (Bld) [#/Vol] 0 10*3/uL Normal 0-5 [facility] Comment on above: Performed By: #### L 100.0100, L300.8000, L500.2500, L501.4021, L503.7505 ####[facility] [address] [place], [address] Platelet mean volume (Bld) [Entitic vol] 10.7 fL Normal 6.2-12.0 [facility] Comment on above: Performed By: #### L 100.0100, L300.8000, L500.2500, L501.4021, L503.7505 ####[facility] [address] [place], [address] Platelets (Bld) [#/Vol] 300 10*3/uL Normal 150-450 [facility] Comment on above: Performed By: #### L 100.0100, L300.8000, L500.2500, L501.4021, L503.7505 ####[facility] [address] [place], [address] RBC (Bld) [#/Vol] 5.54 10*6/uL Normal 4.6-6.2 [facility] Comment on above: Performed By: #### L 100.0100, L300.8000, L500.2500, L501.4021, L503.7505 ####[facility] [address] [place], [address] RDW SD 45.4 fl High 35.1-43.9 [facility] Comment on above: Performed By: #### L 100.0100, L300.8000, L500.2500, L501.4021, L503.7505 ####[facility] [address] [place], [address] WBC (Bld) [#/Vol] 10.1 10*3/uL Normal 4.4-11.0 [facility] Comment on above: Performed By: #### L 100.0100, L300.8000, L500.2500, L501.4021, L503.7505 ####[facility] [address] [place], [address] CRPon 05-31-2025 C-REACTIVE PROT < 3.00 Normal 0.0-3.0 [facility] Comment on above: Performed By: #### L 501.6710, L101.9900 ####[facility] [address] [place], [address] Carbon dioxide, total [Moles /volume] in Central venous bloodOrdered By: Marcelo Hernandez on 05-31-2025 CO2 [Moles/Vol] 20.0 mmol/L Low 21.0-32.0 [facility] Chest 1 View (Portable)on Chest 1 View (Portable) Normal [facility] Chloride assayOrdered By: Honey Hernandez on 05-31-2025 Chloride [Moles/Vol] 100 mmol/L 98-108 [facility] D-Dimer Quantitative (DVT/PE )on 05-31-2025 D-DIMER QUANT 0.31 FEU/ug/m Normal 0.27-0.49 [facility] Comment on above: Result Comment: NORM AL D-Dimer level (<0.50) indicates no DVT or PE. Performed By: #### L 100.0100, L300.8000, L500.2500, L501.4021, L503.7505 ####[facility] [address] [place], [place], [address] Echo, Limited Studyon 2024 Echo, Limited Study Normal [facility] Emergency Department Summary on 05-31-2025 Emergency Department Summary Normal [facility] Eosinophil percentageOrdered By: Marcelo Hernandez on 05-31-2025 Eosinophils/100 WBC (Bld) 2.0 % 0-5 [facility] Erythrocyte Sed Rateon 05-31 SED RATE 40 mm/hr High 0-20 [facility] Comment on above: Performed By: #### L 501.6710, L101.9900 ####[facility] [address] [place], [address] Erythrocyte distribution wid th ratioOrdered By: Marcelo Hernandez on 05-31-2025 Erythrocyte distribution width (RBC) [Ratio] 15.5 % High 11.6-14.6 [facility] Erythrocyte distribution wid th standard deviationOrdered By: Marcelo Hernandez on 05-31-2025 Erythrocyte distribution width (RBC) [Ratio] 45.4 fl High 35.1-43.9 [facility] Erythrocyte sedimentation ra teOrdered By: Chilango Wheeler on 05-31-2025 ESR (Bld) [Velocity] 40 mm/h High 0-20 [facility] Glomerular filtration rate ( GFR) estimation/1.73 sq m using serum, plasma, or whole bOrdered By: Marcelo Hernandez on 05-31-2025 GFR/1.73 sq M.predicted among non-blacks MDRD (S/P/Bld) [Vol rate/Area] 77 mL/min/{1.73_m2} >60 [facility] Comment on above: mL/min/1.73m2 CKD-EP I Creatinine Equation (2020) H AND P Exam - Hospitaliston 05-31-2025 H&P Exam - Hospitalist Normal [facility] Hematocrit Auto (Bld) [Volum e fraction]Ordered By: Marcelo Hernandez on 05-31-2025 Hematocrit (Bld) [Volume fraction] 44.8 % 40-54 [facility] Hemoglobin measurementOrdere d By: Marcelo Hernandez on 05-31-2025 Hemoglobin (Bld) [Mass/Vol] 15.3 g/dL 13.0-16.5 [facility] Immature granulocytes/100 WB C Auto (Bld)Ordered By: Marcelo Hernandez on 05-31-2025 Immature granulocytes/100 WBC (Bld) 0.600 % 0.0-0.9 [facility] Comment on above: IG% - Immature Granu locytes (promyelocytes, myelocytes and metamyelocytes) > 1% indicates that a LEFT SHIFT is Present. L501.4021on 05-31-2025 Trop T High Sen 68 ng/L Invalid Interpretation Code <=22 [facility] Comment on above: Result Comment: Crit ical Result(s) Called to: Leslie MUNGUIA (ER) by:Fany??Results read back by same. Performed By: #### L 100.0100, L300.8000, L500.2500, L501.4021, L503.7505 ####[facility] [address] [place], [address] MCV (mean corpuscular volume ) determinationOrdered By: Marcelo Hernandez on 05-31-2025 MCV (RBC) [Entitic vol] 80.9 fL 80-94 [facility] Mean corpuscular hemoglobin (MCH) determinationOrdered By: Marcelo Hernandez on 05-31-2025 MCH (RBC) [Entitic mass] 27.6 pg 27.0-32.0 [facility] Mean corpuscular hemoglobin concentration (MCHC) determinationOrdered By: Marcelo Hernandez on 05-31-2025 MCHC (RBC) [Mass/Vol] 34.2 g/dL 32-36 [facility] Mean platelet volume determi nationOrdered By: Marcelo Hernandez on 05-31-2025 Platelet mean volume (Bld) [Entitic vol] 10.7 fL 6.2-12.0 [facility] Monocyte percentageOrdered B y: Marcelo Hernandez on 05-31-2025 Monocytes/100 WBC (Bld) 9.6 % 0-10 [facility] Natriuretic peptide.B prohor cuate N-Terminal [Mass/volume] in Serum or PlasmaOrdered By: Marcelo Hernandez on 05-31-2025 Natriuretic peptide.B prohormone N-Terminal [Mass/Vol] 121 pg/mL <1800 [facility] Comment on above: Heart Failure Unlike ly: < 300 pg/mLHeart Failure Likely< 50 Years: > 450 pg/mL50-75 Years: > 900 pg/mL>75 Years: > 1800 pg/mL Neutrophil percentageOrdered By: Marcelo Hernandez on 05-31-2025 Neutrophils/100 WBC (Bld) 70.0 % 47-70 [facility] Nucleated red blood cell per centageOrdered By: Marcelo Hernandez on 05-31-2025 Nucleated RBC/100 WBC (Bld) [Ratio] 0 % 0-5 [facility] Platelet countOrdered By: Honey Hernandez on 05-31-2025 Platelets (Bld) [#/Vol] 300 10*3/uL 150-450 [facility] Potassium measurement (mass/ volume)Ordered By: Marcelo Hernandez on 05-31-2025 Potassium (Unsp spec) [Mass/Vol] 4.1 mmol/L 3.3-5.1 [facility] Pro- Brain NATRIURETIC PEPTI Suyapa 05-31-2025 Natriuretic peptide B (Bld) [Mass/Vol] 121 pg/mL Normal <=1800 [facility] Comment on above: Result Comment: Hear t Failure Unlikely: < 300 pg/mLHeart Failure Likely< 50 Years: > 450 pg/mL50-75 Years: > 900 pg/mL>75 Years: > 1800 pg/mL Performed By: #### L 100.0100, L300.8000, L500.2500, L501.4021, L503.7505 ####[facility] [address] [facility] [place], [place], [address] RBC Auto (Bld) [#/Vol]Ordere d By: Marcelo Hernandez on 05-31-2025 RBC (Bld) [#/Vol] 5.54 10*6/uL 4.6-6.2 [facility] RESPIRATORY PANEL MOLECULARo n 05-31-2025 RP PANEL Normal [facility] Comment on above: Performed By: #### M 100.638 ####[facility] [address] [facility] [place], [place], [address] Respiratory pathogens detect ion panel by molecular detection methodOrdered By: Chilango Wheeler on 05-31-2025 Respiratory pathogens DNA and RNA panel DARRIAN+probe (Resp) [facility] Serum creatinine measurement (mass/volume)Ordered By: Marcelo Hernandez on 05-31-2025 Creatinine [Mass/Vol] 0.99 mg/dL 0.70-1.20 [facility] Serum glucose measurement (m ass/volume)Ordered By: Marcelo Hernandez on 05-31-2025 Glucose [Mass/Vol] 164 mg/dL High 70-99 [facility] Serum or plasma C reactive p rotein measurement (mass/volume)Ordered By: Chilango Wheeler on 05-31-2025 CRP [Mass/Vol] mg/L 0.0-3.0 [facility] Serum or plasma calcium nahomy urement (mass/volume)Ordered By: Marcelo Hernandez on 05-31-2025 Calcium [Mass/Vol] 9.5 mg/dL 7.6-11.0 [facility] Serum or plasma urea nitroge n measurement (mass/volume)Ordered By: Marcelo Hernandez on 05-31-2025 Urea nitrogen [Mass/Vol] 25 mg/dL High 4-19 [facility] Sodium levelOrdered By: Marcelo Hernandez on 05-31-2025 Sodium [Moles/Vol] 135 mmol/L 133-145 [facility] Troponin T HS 2 HRon 025 Trop T High Sen 59 ng/L Invalid Interpretation Code <=22 [facility] Comment on above: Result Comment: Crit ical Result(s) Called to: Leslie MUNGUIA () by:Fany??Results read back by same. Performed By: #### L 499.0042 ####[facility] [address] [facility] [place], [place], [address] Troponin T HS 4 HRon 025 Trop T High Sen 53 ng/L High <=22 [facility] Comment on above: Result Comment: Crit ical Result(s) Called KENIASTSANGITA at: 1609 by:JOSETTE??Results read back by same. Performed By: #### L 499.0043 ####[facility] [address] [place], [place], [address] Troponin T.cardiac [Mass/vol ume] in Serum or Plasma by High sensitivity methodOrdered By: Marcelo Hernandez on 05-31-2025 Troponin T.cardiac High sensitivity method [Mass/Vol] 53 ng/L High <22 [facility] Comment on above: Critical Result(s) C alled ZARMSTRONG at: 1609 by: JOSETTE Results read back by same. Troponin T.cardiac High sensitivity method [Mass/Vol] 59 ng/L Critically high <22 [facility] Comment on above: Critical Result(s) C alled to: Leslie MUNGUIA (ER) by: Fany Results read back by marcos. Troponin T.cardiac High sensitivity method [Mass/Vol] 68 ng/L Critically high <22 [facility] Comment on above: Delta: 43 on 5-1600Critical Result(s) Called to: Leslie MUNGUIA (ER) by: Fany Results read back by marcos. White blood cell (WBC) count Ordered By: Marcelo Hernandez on 05-31-2025 WBC (Bld) [#/Vol] 10.1 10*3/uL 4.4-11.0 [facility] Cardiology Visit Reporton Cardiology Visit Report Normal [facility] Basic Metabolic Profile (BMP )on 05-02-2025 BUN Normal 4-19 [facility] Comment on above: Result Comment: Canc elled via OM: Order cancelled - Patient discharged Performed By: #### L 500.2500, L100.0500 ####[facility] [address] [place], [address] BUN/CRE Normal 10-20 [facility] Comment on above: Result Comment: Canc elled via OM: Order cancelled - Patient discharged Performed By: #### L 500.2500, L100.0500 ####[facility] [address] [place], [address] Calcium Normal 7.6-11.0 [facility] Comment on above: Result Comment: Canc elled via OM: Order cancelled - Patient discharged Performed By: #### L 500.2500, L100.0500 ####[facility] [address] [place], [address] CL Normal 98-108 [facility] Comment on above: Result Comment: Canc elled via OM: Order cancelled - Patient discharged Performed By: #### L 500.2500, L100.0500 ####[facility] [address] [place], [address] CO2 Normal 21.0-32.0 [facility] Comment on above: Result Comment: Canc elled via OM: Order cancelled - Patient discharged Performed By: #### L 500.2500, L100.0500 ####[facility] [address] [place], [address] CREAT,SERUM Normal 0.70-1.20 [facility] Comment on above: Result Comment: Canc elled via OM: Order cancelled - Patient discharged Performed By: #### L 500.2500, L100.0500 ####[facility] [address] [place], [address] eGFR Normal >60 [facility] Comment on above: Result Comment: Canc elled via OM: Order cancelled - Patient discharged Performed By: #### L 500.2500, L100.0500 ####[facility] [address] [place], [address] GAP Normal 5-15 [facility] Comment on above: Result Comment: Canc elled via OM: Order cancelled - Patient discharged Performed By: #### L 500.2500, L100.0500 ####[facility] [address] [place], [address] GLU Normal 70-99 [facility] Comment on above: Result Comment: Canc elled via OM: Order cancelled - Patient discharged Performed By: #### L 500.2500, L100.0500 ####[facility] [address] [place], [address] Potassium Normal 3.3-5.1 [facility] Comment on above: Result Comment: Canc elled via OM: Order cancelled - Patient discharged Performed By: #### L 500.2500, L100.0500 ####[facility] [address] [place], [address] Basic Metabolic Profile (BMP) Normal 133-145 [facility] Comment on above: Result Comment: Canc elled via OM: Order cancelled - Patient discharged Performed By: #### L 500.2500, L100.0500 ####[facility] [address] [place], [address] CBC-Complete Blood Cnt No Di ffon 05-02-2025 HCT Normal 40-54 [facility] Comment on above: Result Comment: Canc elled via OM: Order cancelled - Patient discharged Performed By: #### L 500.2500, L100.0500 ####[facility] [address] [place], [address] HGB Normal 13.0-16.5 [facility] Comment on above: Result Comment: Canc elled via OM: Order cancelled - Patient discharged Performed By: #### L 500.2500, L100.0500 ####[facility] [address] [place], [address] MCH Normal 27.0-32.0 [facility] Comment on above: Result Comment: Canc elled via OM: Order cancelled - Patient discharged Performed By: #### L 500.2500, L100.0500 ####[facility] [address] [place], [address] MCHC Normal 32-36 [facility] Comment on above: Result Comment: Canc elled via OM: Order cancelled - Patient discharged Performed By: #### L 500.2500, L100.0500 ####[facility] [address] [place], [address] MCV Normal 80-94 [facility] Comment on above: Result Comment: Canc elled via OM: Order cancelled - Patient discharged Performed By: #### L 500.2500, L100.0500 ####[facility] [address] [place], [address] PLT Normal 150-450 [facility] Comment on above: Result Comment: Canc elled via OM: Order cancelled - Patient discharged Performed By: #### L 500.2500, L100.0500 ####[facility] [address] [place], [address] RBC Normal 4.6-6.2 [facility] Comment on above: Result Comment: Canc elled via OM: Order cancelled - Patient discharged Performed By: #### L 500.2500, L100.0500 ####[facility] [id number] [place], [address] RDW CV Normal 11.6-14.6 [facility] Comment on above: Result Comment: Canc elled via OM: Order cancelled - Patient discharged Performed By: #### L 500.2500, L100.0500 ####[facility] [address] [place], [address] RDW SD Normal 35.1-43.9 [facility] Comment on above: Result Comment: Canc elled via OM: Order cancelled - Patient discharged Performed By: #### L 500.2500, L100.0500 ####[facility] [address] [place], [address] WBC Normal 4.4-11.0 [facility] Comment on above: Result Comment: Canc elled via OM: Order cancelled - Patient discharged Performed By: #### L 500.2500, L100.0500 ####[facility] [address] [place], [address] 12 Lead EKGon 04-30-2025 12 Lead EKG Normal [facility] Absolute lymphocyte countOrd ered By: Narda Araiza on 04-30-2025 Lymphocytes Auto (Unsp spec) [#/Vol] 1.56 10*3/uL 0.83-4.51 [facility] Absolute neutrophil countOrd ered By: Narda Araiza on 04-30-2025 Neutrophils (Bld) [#/Vol] 5.7 10*3/uL 2.0-7.7 [facility] Anion gap in Serum or Plasma Ordered By: Narda Araiza on 04-30-2025 Anion gap [Moles/Vol] 11 mmol/L 5-15 [facility] Automated lymphocyte count a s percentage of total leukocytesOrdered By: Narda Araiza on 04-30-2025 Lymphocytes/100 WBC Auto (Unsp spec) 17.7 % Low 19-41 [facility] BUN/creatinine ratioOrdered By: Narda Araiza on 04-30-2025 Urea nitrogen/Creatinine [Mass ratio] 21.9 mg/mg High 10-20 [facility] Basophil percentageOrdered B y: Narda Araiza on 04-30-2025 Basophils/100 WBC (Bld) 0.6 % 0-1 [facility] Bedside Glucoseon 04-30-2025 FINGERSTICK GLU 191 mg/dL High 74-106 [facility] Comment on above: Result Comment: URSULA GEMENT OF PATIENT CARE PER NURSING PROTOCOL Performed By: #### L 501.080 ####[facility] [address] [facility] [address] FINGERSTICK GLU 338 mg/dL High 74-106 [facility] Comment on above: Result Comment: URSULA GEMENT OF PATIENT CARE PER NURSING PROTOCOL Performed By: #### L 501.080 ####[facility] [address] [place], [address] FINGERSTICK GLU 136 mg/dL High [address] [place] [address] Comment on above: Result Comment: URSULA GEMENT OF PATIENT CARE PER NURSING PROTOCOL Performed By: #### L 501.080 ####[facility] [address] [place], [address] FINGERSTICK GLU 177 mg/dL High [facility]106 [facility] Comment on above: Result Comment: URSULA GEMENT OF PATIENT CARE PER NURSING PROTOCOL Performed By: #### L 501.080 ####[facility] [address] [facility] [address] Bilirubin Test strip Ql (U)O rdered By: Narda Araiza on 04-30-2025 Bilirubin Ql (U) Negative Negative [facility] Bilirubin, totalOrdered By: Narda Araiza on 04-30-2025 Bilirubin [Mass/Vol] 0.34 mg/dL 0.00-1.30 [facility] CBC W/Diff, Automatedon 04-17 Absolute Lymph 1.56 X10 3/uL Normal 0.83-4.51 [facility] Comment on above: Performed By: #### L 100.0100, L500.4050, L501.2300, L501.9520, L501.9985 ####[facility] [address] [place], [address] Absolute Neut 5.7 X10 3/uL Normal 2.0-7.7 [facility] Comment on above: Performed By: #### L 100.0100, L500.4050, L501.2300, L501.9520, L501.9985 ####[facility] [address] [place], [address] Basophils/100 WBC (Bld) 0.6 % Normal 0-1 [facility] Comment on above: Performed By: #### L 100.0100, L500.4050, L501.2300, L501.9520, L501.9985 ####[facility] [address] [place], [address] Eosinophils/100 WBC (Bld) 4.2 % Normal 0-5 [facility] Comment on above: Performed By: #### L 100.0100, L500.4050, L501.2300, L501.9520, L501.9985 ####[facility] [address] [place], [address] Erythrocyte distribution width (RBC) [Ratio] 15.1 % High 11.6-14.6 [facility] Comment on above: Performed By: #### L 100.0100, L500.4050, L501.2300, L501.9520, L501.9985 ####[facility] [address] [place], [address] Hematocrit (Bld) [Volume fraction] 40.6 % Normal 40-54 [facility] Comment on above: Performed By: #### L 100.0100, L500.4050, L501.2300, L501.9520, L501.9985 ####[facility] [address] [place], [address] Hemoglobin (Bld) [Mass/Vol] 13.4 g/dL Normal 13.0-16.5 [facility] Comment on above: Performed By: #### L 100.0100, L500.4050, L501.2300, L501.9520, L501.9985 ####[facility] [address] [place], [address] IG% 0.600 Normal 0.0-0.9 [facility] Comment on above: Result Comment: IG% - Immature Granulocytes (promyelocytes, myelocytes andmetamyelocytes) > 1% indicates that a LEFT SHIFT is Present. Performed By: #### L 100.0100, L500.4050, L501.2300, L501.9520, L501.9985 ####[facility] [address] [place], [address] Lymphocytes/100 WBC (Bld) 17.7 % Low 19-41 [facility] Comment on above: Performed By: #### L 100.0100, L500.4050, L501.2300, L501.9520, L501.9985 ####[facility] [address] [place], [address] MCH (RBC) [Entitic mass] 27.1 pg Normal 27.0-32.0 [facility] Comment on above: Performed By: #### L 100.0100, L500.4050, L501.2300, L501.9520, L501.9985 ####[facility] [address] [place], [address] MCHC (RBC) [Mass/Vol] 33.0 g/dL Normal 32-36 [facility] Comment on above: Performed By: #### L 100.0100, L500.4050, L501.2300, L501.9520, L501.9985 ####[facility] [address] [place], [address] MCV (RBC) [Entitic vol] 82.2 fL Normal 80-94 [facility] Comment on above: Performed By: #### L 100.0100, L500.4050, L501.2300, L501.9520, L501.9985 ####[facility] [address] [place], [address] Monocytes/100 WBC (Bld) 11.7 % High 0-10 [facility] Comment on above: Performed By: #### L 100.0100, L500.4050, L501.2300, L501.9520, L501.9985 ####[facility] [address] [place], [address] Neutrophils/100 WBC (Bld) 65.2 % Normal 47-70 [facility] Comment on above: Performed By: #### L 100.0100, L500.4050, L501.2300, L501.9520, L501.9985 ####[facility] [address] [place], [address] Nucleated RBC (Bld) [#/Vol] 0 10*3/uL Normal 0-5 [facility] Comment on above: Performed By: #### L 100.0100, L500.4050, L501.2300, L501.9520, L501.9985 ####[facility] [address] [place], [address] Platelet mean volume (Bld) [Entitic vol] 10.5 fL Normal 6.2-12.0 [facility] Comment on above: Performed By: #### L 100.0100, L500.4050, L501.2300, L501.9520, L501.9985 ####[facility] [address] [place], [address] Platelets (Bld) [#/Vol] 284 10*3/uL Normal 150-450 [facility] Comment on above: Performed By: #### L 100.0100, L500.4050, L501.2300, L501.9520, L501.9985 ####[facility] [address] [place], [address] RBC (Bld) [#/Vol] 4.94 10*6/uL Normal 4.6-6.2 [facility] Comment on above: Performed By: #### L 100.0100, L500.4050, L501.2300, L501.9520, L501.9985 ####[facility] [address] [place], [address] RDW SD 45.4 fl High 35.1-43.9 [facility] Comment on above: Performed By: #### L 100.0100, L500.4050, L501.2300, L501.9520, L501.9985 ####[facility] [address] [place], [address] WBC (Bld) [#/Vol] 8.8 10*3/uL Normal 4.4-11.0 [facility] Comment on above: Performed By: #### L 100.0100, L500.4050, L501.2300, L501.9520, L501.9985 ####[facility] [address] [place], [address] Carbon dioxide, total [Moles /volume] in Central venous bloodOrdered By: Narda Araiza on 04-30-2025 CO2 [Moles/Vol] 21.9 mmol/L 21.0-32.0 [facility] Cardiovascular stress test r eportOrdered By: Edgar Dee on 04-30-2025 Study report [facility] [address] [place] [address] MR#: [id number] Acct: [id number] Name: FAISAL ALARCON Rep #: [id number] : 1945 80 From: Edgar Dee MD [...] ~ Date Dictated: 04/30/251033 Date Transcribed: 04/30/251033 Manager Sourcing: SA Doherty [facility] Chloride assayOrdered By: Oracio Araiza on 04-30-2025 Chloride [Moles/Vol] 106 mmol/L 98-108 [facility] Comprehensive Metabolic Prof ilon 04-30-2025 Albumin [Mass/Vol] 3.4 g/dL Normal 3.4-4.8 [facility] Comment on above: Performed By: #### L 100.0100, L500.4050, L501.2300, L501.9520, L501.9985 ####[facility] [address] [place], [address] Albumin/Globulin [Mass ratio] 1.2 {ratio} Normal 0.9-2.4 [facility] Comment on above: Performed By: #### L 100.0100, L500.4050, L501.2300, L501.9520, L501.9985 ####[facility] [address] [place], [address] ALK PHOS 103 U/L Normal 40-129 [facility] Comment on above: Performed By: #### L 100.0100, L500.4050, L501.2300, L501.9520, L501.9985 ####[facility] [address] [place], [address] ALT [Catalytic activity/Vol] 11 U/L Normal <=46 [facility] Comment on above: Performed By: #### L 100.0100, L500.4050, L501.2300, L501.9520, L501.9985 ####[facility] [address] [place], [address] AST [Catalytic activity/Vol] 13 U/L Normal <=37 [facility] Comment on above: Performed By: #### L 100.0100, L500.4050, L501.2300, L501.9520, L501.9985 ####[facility] [address] [place], [address] Bilirubin [Mass/Vol] 0.34 mg/dL Normal 0.00-1.30 [facility] Comment on above: Performed By: #### L 100.0100, L500.4050, L501.2300, L501.9520, L501.9985 ####[facility] [address] [place], [address] BUN/CRE 21.9 RATIO High 10-20 [facility] Comment on above: Performed By: #### L 100.0100, L500.4050, L501.2300, L501.9520, L501.9985 ####[facility] [address] [place], [address] Calcium [Mass/Vol] 8.9 mg/dL Normal 7.6-11.0 [facility] Comment on above: Performed By: #### L 100.0100, L500.4050, L501.2300, L501.9520, L501.9985 ####[facility] [address] [place], [address] Chloride [Moles/Vol] 106 mmol/L Normal 98-108 [facility] Comment on above: Performed By: #### L 100.0100, L500.4050, L501.2300, L501.9520, L501.9985 ####[facility] [address] [place], [address] CO2 [Moles/Vol] 21.9 mmol/L Normal 21.0-32.0 [facility] Comment on above: Performed By: #### L 100.0100, L500.4050, L501.2300, L501.9520, L501.9985 ####[facility] [address] [place], [address] Creatinine [Mass/Vol] 0.83 mg/dL Normal 0.70-1.20 [facility] Comment on above: Performed By: #### L 100.0100, L500.4050, L501.2300, L501.9520, L501.9985 ####[facility] [address] [place], [address] ECRCL 92.43 ml/min Normal 50-250 [facility] Comment on above: Performed By: #### L 100.0100, L500.4050, L501.2300, L501.9520, L501.9985 ####[facility] [address] [place], [address] GAP 11 Normal 5-15 [facility] Comment on above: Performed By: #### L 100.0100, L500.4050, L501.2300, L501.9520, L501.9985 ####[facility] [address] [place], [address] GFR/1.73 sq M.predicted among non-blacks MDRD (S/P/Bld) [Vol rate/Area] 88 mL/min/{1.73_m2} Normal >60 [facility] Comment on above: Result Comment: mL/m in/1.73m2 CKD-EPI Creatinine Equation (2020) Performed By: #### L 100.0100, L500.4050, L501.2300, L501.9520, L501.9985 ####[facility] [address] [place], [address] Globulin (S) [Mass/Vol] 2.8 g/dL Normal 2.2-4.2 [facility] Comment on above: Performed By: #### L 100.0100, L500.4050, L501.2300, L501.9520, L501.9985 ####[facility] [address] [place], [address] Glucose [Mass/Vol] 102 mg/dL High 70-99 [facility] Comment on above: Performed By: #### L 100.0100, L500.4050, L501.2300, L501.9520, L501.9985 ####[facility] [address] [place], [address] Potassium [Moles/Vol] 4.2 mmol/L Normal 3.3-5.1 [facility] Comment on above: Performed By: #### L 100.0100, L500.4050, L501.2300, L501.9520, L501.9985 ####[facility] [address] [place], [address] Sodium [Moles/Vol] 138 mmol/L Normal 133-145 [facility] Comment on above: Performed By: #### L 100.0100, L500.4050, L501.2300, L501.9520, L501.9985 ####[facility] [address] [place], [address] T PROT 6.2 g/dL Normal 5.9-8.4 [facility] Comment on above: Performed By: #### L 100.0100, L500.4050, L501.2300, L501.9520, L501.9985 ####[facility] [address] [place], [address] Urea nitrogen [Mass/Vol] 18 mg/dL Normal - [facility] Comment on above: Performed By: #### L 100.0100, L500.4050, L501.2300, L501.9520, L501.9985 ####[facility] [address] [place], [address] Discharge Instructionon 04-17 Discharge Instruction Normal [facility] Echocardiogram study reportO rdered By: Edgar Dee on 04-30-2025 Study report [facility] [address] [place] [address] Echo Complete 04/30/25 0905 MR#: [id number] Acct: [id number] Name: FAISAL ALARCON Rep #:[id number] : 1945 80 From: Edgar Brannon Attending [...] ~ Date Dictated: 04/30/25904 Date Transcribed: 04/30/251127 Manager Sourcing: Signed [facility] Eosinophil percentageOrdered By: Narda Araiza on 04-30-2025 Eosinophils/100 WBC (Bld) 4.2 % 0-5 [facility] Erythrocyte distribution wid th ratioOrdered By: Narda Araiza on 04-30-2025 Erythrocyte distribution width (RBC) [Ratio] 15.1 % High 11.6-14.6 [facility] Erythrocyte distribution wid th standard deviationOrdered By: Narda Araiza on 04-30-2025 Erythrocyte distribution width (RBC) [Ratio] 45.4 fl High 35.1-43.9 [facility] Glomerular filtration rate ( GFR) estimation/1.73 sq m using serum, plasma, or whole bOrdered By: Narda Araiza on 04-30-2025 GFR/1.73 sq M.predicted among non-blacks MDRD (S/P/Bld) [Vol rate/Area] 88 mL/min/{1.73_m2} >60 [facility] Comment on above: mL/min/1.73m2 CKD-EP I Creatinine Equation (2020) [facility] de[facility]dered By: Chilango Wheeler on 04-30-2025 Glucose [Mass/Vol] 191 mg/dL High 74-106 [facility] Comment on above: MANAGEMENT OF PATIEN T CARE PER NURSING PROTOCOL Hematocrit Auto (Bld) [Volum e fraction]Ordered By: Narda Araiza on 04-30-2025 Hematocrit (Bld) [Volume fraction] 40.6 % 40-54 [facility] Hemoglobin A1con 04-30-2025 HbA1c (Bld) [Mass fraction] 6.7 % High <=5.6 [facility] Comment on above: Result Comment: Norm al < 5.7 % Prediabetic 5.7 - 6.4 % Diabetic >or= 6.5 % Please note range changes. Performed By: #### L 100.0100, L500.4050, L501.2300, L501.9520, L501.9985 ####[facility] [address] [place], [address] Hemoglobin A1c percentageOrd ered By: Narda Araiza on 04-30-2025 HbA1c (Bld) [Mass fraction] 6.7 % High <5.7 [facility] Comment on above: Normal < 5.7 % Predi abetic 5.7 - 6.4 % Diabetic >or= 6.5 % Please note range changes. Hemoglobin measurementOrdere d By: Narda Araiza on 04-30-2025 Hemoglobin (Bld) [Mass/Vol] 13.4 g/dL 13.0-16.5 [facility] Immature granulocytes/100 WB C Auto (Bld)Ordered By: Narda Araiza on 04-30-2025 Immature granulocytes/100 WBC (Bld) 0.600 % 0.0-0.9 [facility] Comment on above: IG% - Immature Granu locytes (promyelocytes, myelocytes and metamyelocytes) > 1% indicates that a LEFT SHIFT is Present. Ketones Test strip Ql (U)Ord ered By: Narda Araiza on 04-30-2025 Ketones Ql (U) Negative Negative [facility] Laboratory - Chemistry and C hemistry - challengeOrdered By: Narda Araiza on 04-30-2025 AST [Catalytic activity/Vol] 13 U/L <38 [facility] MCV (mean corpuscular volume ) determinationOrdered By: Narda Araiza on 04-30-2025 MCV (RBC) [Entitic vol] 82.2 fL 80-94 [facility] Mean corpuscular hemoglobin (MCH) determinationOrdered By: Narda Araiza on 04-30-2025 MCH (RBC) [Entitic mass] 27.1 pg 27.0-32.0 [facility] Mean corpuscular hemoglobin concentration (MCHC) determinationOrdered By: Narda Araiza on 04-30-2025 MCHC (RBC) [Mass/Vol] 33.0 g/dL 32-36 [facility] Mean platelet volume determi nationOrdered By: Narda Araiza on 04-30-2025 Platelet mean volume (Bld) [Entitic vol] 10.5 fL 6.2-12.0 [facility] Microscopic analysis of urin e for red blood cells (RBC)Ordered By: Narda Araiza on 04-30-2025 Microscopic analysis of urine for red blood cells (RBC) 0 SEEN /hpf 0-5 [facility] Monocyte percentageOrdered B y: Narda Araiza on 04-30-2025 Monocytes/100 WBC (Bld) 11.7 % High 0-10 [facility] Mucus LM Ql (Urine sed)Order ed By: Narda Araiza on 04-30-2025 Mucus Ql (Urine sed) 0 SEEN /hpf [facility] Neutrophil percentageOrdered By: Narda Araiza on 04-30-2025 Neutrophils/100 WBC (Bld) 65.2 % 47-70 [facility] Nitrite Test strip Ql (U)Ord ered By: Narda Araiza on 04-30-2025 Nitrite Ql (U) Negative Negative [facility] Nucleated red blood cell per centageOrdered By: Narda Araiza on 04-30-2025 Nucleated RBC/100 WBC (Bld) [Ratio] 0 % 0-5 [facility] Phosphoruson 04-30-2025 Phosphate [Mass/Vol] 3.0 mg/dL Normal 2.7-4.5 [facility] Comment on above: Performed By: #### L 100.0100, L500.4050, L501.2300, L501.9520, L501.9985 ####[facility] [address] [place], [address] Platelet countOrdered By: Oracio Araiza on 04-30-2025 Platelets (Bld) [#/Vol] 284 10*3/uL 150-450 [facility] Potassium measurement (mass/ volume)Ordered By: Narda Araiza on 04-30-2025 Potassium (Unsp spec) [Mass/Vol] 4.2 mmol/L 3.3-5.1 [facility] Protein Test strip Ql (U)Ord ered By: Narda Araiza on 04-30-2025 Protein Ql (U) 15 mg/dl High Negative [facility] RBC Auto (Bld) [#/Vol]Ordere d By: Narda Araiza on 04-30-2025 RBC (Bld) [#/Vol] 4.94 10*6/uL 4.6-6.2 [facility] Serum creatinine measurement (mass/volume)Ordered By: Narda Araiza on 04-30-2025 Creatinine [Mass/Vol] 0.83 mg/dL 0.70-1.20 [facility] Serum globulin measurementOr dered By: Narda Araiza on 04-30-2025 Globulin (S) [Mass/Vol] 2.8 g/dL 2.2-4.2 [facility] Serum glucose measurement (m ass/volume)Ordered By: Narda Araiza on 04-30-2025 Glucose [Mass/Vol] 102 mg/dL High 70-99 [facility] Serum or plasma alanine cottrell otransferase (ALT) measurementOrdered By: Narda Araiza on 04-30-2025 ALT [Catalytic activity/Vol] 11 U/L <47 [facility] Serum or plasma albumin nahomy urement (mass/volume)Ordered By: Narda Araiza on 04-30-2025 Albumin [Mass/Vol] 3.4 g/dL 3.4-4.8 [facility] Serum or plasma albumin/glob ulin mass ratioOrdered By: Narda Araiza on 04-30-2025 Albumin/Globulin [Mass ratio] 1.2 {ratio} 0.9-2.4 [facility] Serum or plasma alkaline ahsan sphatase measurementOrdered By: Narda Araiza on 04-30-2025 ALP [Catalytic activity/Vol] 103 U/L 40-129 [facility] Serum or plasma calcium nahomy urement (mass/volume)Ordered By: Narda Araiza on 04-30-2025 Calcium [Mass/Vol] 8.9 mg/dL 7.6-11.0 [facility] Serum or plasma urea nitroge n measurement (mass/volume)Ordered By: Narda Araiza on 04-30-2025 Urea nitrogen [Mass/Vol] 18 mg/dL 4-19 [facility] Sodium levelOrdered By: Chaz Araiza on 04-30-2025 Sodium [Moles/Vol] 138 mmol/L 133-145 [facility] Squamous epithelial cells de tection in urine sediment by light microscopyOrdered By: Narda Araiza on 04-30-2025 Epithelial cells.squamous LM Ql (Urine sed) 0-5 SEEN /hpf 0-5 [facility] Stress Reporton 04-30-2025 Stress Report Normal [facility] TSH DL <= 0.005 mIU/L QnOrde red By: Narda Araiza on 04-30-2025 TSH Qn 1.530 uIU/mL 0.300-4.20 0 [facility] Thyroid Stim Hormone (TSH)on 04-30-2025 TSH 1.530 uIU/mL Normal 0.300-4.20 0 [facility] Comment on above: Performed By: #### L 100.0100, L500.4050, L501.2300, L501.9520, L501.9985 ####[facility] [address] [place], [place], [address] Total proteinOrdered By: Ki Araiza on 04-30-2025 Protein [Mass/Vol] 6.2 g/dL 5.9-8.4 [facility] Urinalysis, Completeon 04-30 BACTERIA 1+ /hpf Normal None Seen [facility] Comment on above: Order Comment: CLEAN CATCH Performed By: #### L 400.0001 ####[facility] [address] [place], [address] EPI,SQUAMOUS 0-5 SEEN Normal 0-5 [facility] Comment on above: Order Comment: CLEAN CATCH Performed By: #### L 400.0001 ####[facility] [address] [place], [place], [address] WBC 10-25 SEEN Normal 0-5 [facility] Comment on above: Order Comment: CLEAN CATCH Performed By: #### L 400.0001 ####[facility] [address] [place], [place], [address] Mucus Ql (Urine sed) 0 SEEN Normal [facility] Comment on above: Order Comment: CLEAN CATCH Performed By: #### L 400.0001 ####[facility] [address] [place], [place], [address] RBC 0 SEEN Normal 0-5 [facility] Comment on above: Order Comment: CLEAN CATCH Performed By: #### L 400.0001 ####[facility] [address] [place], [place], [address] Urine clarityOrdered By: Ki Araiza on 04-30-2025 Clarity (U) Clear Clear [facility] Urine color determinationOrd ered By: Narda Araiza on 04-30-2025 Color (U) Straw Yellow [facility] Urine glucose detectionOrder ed By: Narda Araiza on 04-30-2025 Glucose Ql (U) 1000 mg/dl High Normal [facility] Urine leukocyte esterase det ection by dipstickOrdered By: Narda Araiza on 04-30-2025 Leukocyte esterase Test strip Ql (U) 25 /ul High Negative [facility] Urine pHOrdered By: Narda gabriel on 04-30-2025 pH (U) 6.0 [pH] 5.0 - 8.0 [facility] Urine sediment bacteria coun t by microscopy (number/high power field)Ordered By: Narda Araiza on 04-30-2025 Bacteria LM.HPF (Urine sed) [#/Area] 1 /[HPF] None Seen [facility] Urine specific gravity measu rementOrdered By: Narda Araiza on 04-30-2025 Specific gravity (U) [Rel density] 1.015 1.002-1.03 0 [facility] Urine urobilinogen measureme ntOrdered By: Narda Araiza on 04-30-2025 Urobilinogen Ql (U) Normal mg/dl Normal [facility] White blood cell (WBC) count Ordered By: Narda Araiza on 04-30-2025 WBC (Bld) [#/Vol] 8.8 10*3/uL 4.4-11.0 [facility] White blood cell countOrdere d By: Narda Araiza on 04-30-2025 White blood cell count 10-25 SEEN /hpf 0-5 [facility] Absolute lymphocyte countOrd ered By: Yola Canales on 04-29-2025 Lymphocytes Auto (Unsp spec) [#/Vol] 1.49 10*3/uL 0.83-4.51 [facility] Absolute neutrophil countOrd ered By: Yola Canales on 04-29-2025 Neutrophils (Bld) [#/Vol] 7.3 10*3/uL 2.0-7.7 [facility] Anion gap in Serum or Plasma Ordered By: Yola Canales on 04-29-2025 Anion gap [Moles/Vol] 15 mmol/L 5-15 [facility] Automated blood erythrocyte countOrdered By: Yola Canales on 04-29-2025 RBC (Bld) [#/Vol] 5.23 10*6/uL Normal 4.6-6.2 [facility] Comment on above: Performed By: #### L 100.0100, L500.2500, L501.4021, L501.5200 ####[facility] [address] [place], [place], [id number] Automated blood hematocrit ( percentage)Ordered By: Yola Canales on 04-29-2025 Hematocrit (Bld) [Volume fraction] 42.8 % Normal 40-54 [facility] Comment on above: Performed By: #### L 100.0100, L500.2500, L501.4021, L501.5200 ####[facility] [address] [place], [address] Automated lymphocyte count a s percentage of total leukocytesOrdered By: Yola Canales on 04-29-2025 Lymphocytes/100 WBC Auto (Unsp spec) 14.5 % Low 19-41 [facility] BUN/creatinine ratioOrdered By: Yola Canales on 04-29-2025 Urea nitrogen/Creatinine [Mass ratio] 19.8 mg/mg 10-20 [facility] Basic Metabolic Profile (BMP )on 04-29-2025 BUN/CRE 19.8 RATIO Normal 10-20 [facility] Comment on above: Performed By: #### L 100.0100, L500.2500, L501.4021, L501.5200 ####[facility] [address] [place], [address] ECRCL 64.29 ml/min Normal 50-250 [facility] Comment on above: Performed By: #### L 100.0100, L500.2500, L501.4021, L501.5200 ####[facility] [address] [place], [address] GAP 15 Normal 5-15 [facility] Comment on above: Performed By: #### L 100.0100, L500.2500, L501.4021, L501.5200 ####[facility] [address] [place], [address] Potassium [Moles/Vol] 4.1 mmol/L Normal 3.3-5.1 [facility] Comment on above: Performed By: #### L 100.0100, L500.2500, L501.4021, L501.5200 ####[facility] [address] [place], [address] Basophil percentageOrdered B y: Yola Canales on 04-29-2025 Basophils/100 WBC (Bld) 0.4 % Normal 0-1 [facility] Comment on above: Performed By: #### L 100.0100, L500.2500, L501.4021, L501.5200 ####[facility] [address] [place], [address] Bedside Glucoseon 04-29-2025 FINGERSTICK GLU 164 mg/dL High 74-106 [facility] Comment on above: Result Comment: URSULA CHAMBERS OF PATIENT CARE PER NURSING PROTOCOL Performed By: #### L 501.080 ####[facility] [address] [place], [address] CBC W/Diff, Automatedon 04-17 Absolute Lymph 1.49 X10 3/uL Normal 0.83-4.51 [facility] Comment on above: Performed By: #### L 100.0100, L500.2500, L501.4021, L501.5200 ####[facility] [address] [place], [address] Absolute Neut 7.3 X10 3/uL Normal 2.0-7.7 [facility] Comment on above: Performed By: #### L 100.0100, L500.2500, L501.4021, L501.5200 ####[facility] [address] [place], [address] IG% 0.400 Normal 0.0-0.9 [facility] Comment on above: Result Comment: IG% - Immature Granulocytes (promyelocytes, myelocytes andmetamyelocytes) > 1% indicates that a LEFT SHIFT is Present. Performed By: #### L 100.0100, L500.2500, L501.4021, L501.5200 ####[facility] [address] [place], [address] Lymphocytes/100 WBC (Bld) 14.5 % Low 19-41 [facility] Comment on above: Performed By: #### L 100.0100, L500.2500, L501.4021, L501.5200 ####[facility] [address] [place], [address] Nucleated RBC (Bld) [#/Vol] 0 10*3/uL Normal 0-5 [facility] Comment on above: Performed By: #### L 100.0100, L500.2500, L501.4021, L501.5200 ####[facility] [address] [place], [address] RDW SD 44.9 fl High 35.1-43.9 [facility] Comment on above: Performed By: #### L 100.0100, L500.2500, L501.4021, L501.5200 ####[facility] [address] [place], [address] CTA Chest W/WO Contraston CTA Chest W/WO Contrast Normal [facility] Carbon dioxide, total [Moles /volume] in Central venous bloodOrdered By: Yola Canales on 04-29-2025 CO2 [Moles/Vol] 19.9 mmol/L Low 21.0-32.0 [facility] Comment on above: Performed By: #### L 100.0100, L500.2500, L501.4021, L501.5200 ####[facility] [address] [place], [address] Carotid Duplex Ultrasoundon 04-29-2025 Carotid Duplex Ultrasound Normal [facility] Chloride assayOrdered By: Honey Canales on 04-29-2025 Chloride [Moles/Vol] 100 mmol/L Normal 98-108 [facility] Comment on above: Performed By: #### L 100.0100, L500.2500, L501.4021, L501.5200 ####[facility] [address] [place], [address] Echo Completeon 04-29-2025 Echo Complete Normal [facility] Emergency Department Summary on 04-29-2025 Emergency Department Summary Normal [facility] Eosinophil percentageOrdered By: Yola Canales on 04-29-2025 Eosinophils/100 WBC (Bld) 2.8 % Normal 0-5 [facility] Comment on above: Performed By: #### L 100.0100, L500.2500, L501.4021, L501.5200 ####[facility] [address] [place], [address] Erythrocyte distribution wid th ratioOrdered By: Yola Canales on 04-29-2025 Erythrocyte distribution width (RBC) [Ratio] 14.9 % High 11.6-14.6 [facility] Comment on above: Performed By: #### L 100.0100, L500.2500, L501.4021, L501.5200 ####[facility] [address] [place], [address] Erythrocyte distribution wid th standard deviationOrdered By: Yola Canales on 04-29-2025 Erythrocyte distribution width (RBC) [Ratio] 44.9 fl High 35.1-43.9 [facility] Glomerular filtration rate ( GFR) estimation/1.73 sq m using serum, plasma, or whole bOrdered By: Yola Canales on 04-29-2025 GFR/1.73 sq M.predicted among non-blacks MDRD (S/P/Bld) [Vol rate/Area] 61 mL/min/{1.73_m2} Normal >60 [facility] Comment on above: mL/min/1.73m2 CKD-EP I Creatinine Equation (2020) Result Comment: mL/m in/1.73m2 CKD-EPI Creatinine Equation (2020) Performed By: #### L 100.0100, L500.2500, L501.4021, L501.5200 ####[facility] [address] [place], [address] H AND P Exam - Hospitaliston 04-29-2025 H&P Exam - Hospitalist Normal [facility] Hemoglobin measurementOrdere d By: Yola Canales on 04-29-2025 Hemoglobin (Bld) [Mass/Vol] 14.3 g/dL Normal 13.0-16.5 [facility] Comment on above: Performed By: #### L 100.0100, L500.2500, L501.4021, L501.5200 ####[facility] [address] [place], [address] Immature granulocytes/100 WB C Auto (Bld)Ordered By: Yola Canales on 04-29-2025 Immature granulocytes/100 WBC (Bld) 0.400 % 0.0-0.9 [facility] Comment on above: IG% - Immature Granu locytes (promyelocytes, myelocytes and metamyelocytes) > 1% indicates that a LEFT SHIFT is Present. L501.4021on 04-29-2025 Trop T High Sen 43 ng/L High <=22 [facility] Comment on above: Performed By: #### L 100.0100, L500.2500, L501.4021, L501.5200 ####[facility] [address] [place], [address] MCV (mean corpuscular volume ) determinationOrdered By: Yola Canales on 04-29-2025 MCV (RBC) [Entitic vol] 81.8 fL Normal 80-94 [facility] Comment on above: Performed By: #### L 100.0100, L500.2500, L501.4021, L501.5200 ####[facility] [address] [place], [address] Magnesiumon 04-29-2025 Magnesium [Mass/Vol] 2.3 mg/dL High 1.5-2.2 [facility] Comment on above: Performed By: #### L 100.0100, L500.2500, L501.4021, L501.5200 ####[facility] [address] [place], [address] Magnesium measurement (mass/ volume)Ordered By: Yola Canales on 04-29-2025 Magnesium (Unsp spec) [Mass/Vol] 2.3 mg/dL High 1.5-2.2 [facility] Mean corpuscular hemoglobin (MCH) determinationOrdered By: Yola Canales on 04-29-2025 MCH (RBC) [Entitic mass] 27.3 pg Normal 27.0-32.0 [facility] Comment on above: Performed By: #### L 100.0100, L500.2500, L501.4021, L501.5200 ####[facility] [address] [place], [address] Mean corpuscular hemoglobin concentration (MCHC) determinationOrdered By: Yola Canales on 04-29-2025 MCHC (RBC) [Mass/Vol] 33.4 g/dL Normal 32-36 [facility] Comment on above: Performed By: #### L 100.0100, L500.2500, L501.4021, L501.5200 ####[facility] [address] [place], [address] Mean platelet volume determi nationOrdered By: Yola Canales on 04-29-2025 Platelet mean volume (Bld) [Entitic vol] 10.5 fL Normal 6.2-12.0 [facility] Comment on above: Performed By: #### L 100.0100, L500.2500, L501.4021, L501.5200 ####[facility] [address] [place], [address] Monocyte percentageOrdered B y: Yola Canales on 04-29-2025 Monocytes/100 WBC (Bld) 10.5 % High 0-10 [facility] Comment on above: Performed By: #### L 100.0100, L500.2500, L501.4021, L501.5200 ####[facility] [address] [place], [address] Neutrophil percentageOrdered By: Yola Canales on 04-29-2025 Neutrophils/100 WBC (Bld) 71.4 % High 47-70 [facility] Comment on above: Performed By: #### L 100.0100, L500.2500, L501.4021, L501.5200 ####[facility] [address] [place], [address] Nucleated red blood cell per centageOrdered By: Yola Canales on 04-29-2025 Nucleated RBC/100 WBC (Bld) [Ratio] 0 % 0-5 [facility] Platelet countOrdered By: Honey Canales on 04-29-2025 Platelets (Bld) [#/Vol] 327 10*3/uL Normal 150-450 [facility] Comment on above: Performed By: #### L 100.0100, L500.2500, L501.4021, L501.5200 ####[facility] [address] [place], [address] Potassium measurement (mass/ volume)Ordered By: Yola Canales on 04-29-2025 Potassium (Unsp spec) [Mass/Vol] 4.1 mmol/L 3.3-5.1 [facility] Serum creatinine measurement (mass/volume)Ordered By: Yola Canales on 04-29-2025 Creatinine [Mass/Vol] 1.20 mg/dL Normal 0.70-1.20 [facility] Comment on above: Performed By: #### L 100.0100, L500.2500, L501.4021, L501.5200 ####[facility] [address] [place], [address] Serum glucose measurement (m ass/volume)Ordered By: Yola Canales on 04-29-2025 Glucose [Mass/Vol] 155 mg/dL High 70-99 [facility] Comment on above: Performed By: #### L 100.0100, L500.2500, L501.4021, L501.5200 ####[facility] [address] [place], [address] Serum or plasma calcium nahomy urement (mass/volume)Ordered By: Yola Canales on 04-29-2025 Calcium [Mass/Vol] 9.3 mg/dL Normal 7.6-11.0 [facility] Comment on above: Performed By: #### L 100.0100, L500.2500, L501.4021, L501.5200 ####[facility] [address] [place], [address] Serum or plasma urea nitroge n measurement (mass/volume)Ordered By: Yola Canales on 04-29-2025 Urea nitrogen [Mass/Vol] 24 mg/dL High 4-19 [facility] Comment on above: Performed By: #### L 100.0100, L500.2500, L501.4021, L501.5200 ####[facility] [address] [place], [address] Sodium levelOrdered By: Marcelo Canales on 04-29-2025 Sodium [Moles/Vol] 135 mmol/L Normal 133-145 [facility] Comment on above: Performed By: #### L 100.0100, L500.2500, L501.4021, L501.5200 ####[facility] [address] [place], [address] Troponin T HS 2 HRon 025 Trop T High Sen Normal <=22 [facility] Comment on above: Result Comment: DUPL ICATE ORDER Performed By: #### L 499.0042 ####[facility] [address] [place], [address] Trop T High Sen 42 ng/L High <=22 [facility] Comment on above: Performed By: #### L 499.0042 ####[facility] [address] [place], [address] Troponin T HS 4 HRon 04-29-2 025 Trop T High Sen Normal <=22 [facility] Comment on above: Result Comment: DUPL ICATE ORDER Performed By: #### L 499.0043 ####[facility] [address] [place], [address] Trop T High Sen 38 ng/L High <=22 [facility] Comment on above: Performed By: #### L 499.0043 ####[facility] [address] [place], [address] Troponin T.cardiac [Mass/vol ume] in Serum or Plasma by High sensitivity methodOrdered By: Yola Canales on 04-29-2025 Troponin T.cardiac High sensitivity method [Mass/Vol] 38 ng/L High <22 [facility] Troponin T.cardiac High sensitivity method [Mass/Vol] 42 ng/L High <22 [facility] Troponin T.cardiac High sensitivity method [Mass/Vol] 43 ng/L High <22 [facility] Comment on above: Delta: 49 on 5-2300 White blood cell (WBC) count Ordered By: Yola Canales on 04-29-2025 WBC (Bld) [#/Vol] 10.3 10*3/uL Normal 4.4-11.0 [facility] Comment on above: Performed By: #### L 100.0100, L500.2500, L501.4021, L501.5200 ####[facility] [address] [place], [address] GAGANDEEP w/ Reflex Mult Confirmon 04-10-2025 ANTI-DNA (DS)AB TNP Normal [facility] Comment on above: Performed By: #### L 3100.5450, L503.6550, L505.7010, L3300.1200, L4600.0100 ####[facility] [address] [place], [address] ANTI-SS-A TNP Normal [facility] Comment on above: Performed By: #### L 3100.5450, L503.6550, L505.7010, L3300.1200, L4600.0100 ####[facility] [address] [place], [address] ANTI-SS-B TNP Normal [facility] Comment on above: Performed By: #### L 3100.5450, L503.6550, L505.7010, L3300.1200, L4600.0100 ####[facility] [address] [place], [address] ANCAon 04-09-2025 Atypical pANCA <1:20 Normal Neg:<1:20 [facility] Comment on above: Result Comment: The atypical pANCA pattern has been observed in asignificant percentage of patients with ulcerative colitis,primary sclerosing cholangitis and autoimmune hepatitis. Performed By: #### L 3100.5450, L503.6550, L505.7010, L3300.1200, L4600.0100 ####[facility] [address] [place], [address] Cytoplasmic Ab <1:20 Normal Neg:<1:20 [facility] Comment on above: Performed By: #### L 3100.5450, L503.6550, L505.7010, L3300.1200, L4600.0100 ####[facility] [address] [place], [place], [address] Perinuclear Ab. <1:20 Normal Neg:<1:20 [facility] Comment on above: Result Comment: The [...] only by EIA. Ref. AM J Clin Rxbyet8313;111:507-513. Performed By: #### L 3100.5450, L503.6550, L505.7010, L3300.1200, L4600.0100 ####[facility] [address] [place], [address] CCP IgG Antibodieson 025 CCP IgG Ab. 8 units Normal 0-19 [facility] Comment on above: Result Comment: Nega tive <20 Weak positive 20 - 39 Moderate positive 40 - 59 Strong positive >59Performed at: [address] [id number] Director: Naresh Pruitt PhD, Phone: [phone] Performed By: #### L 3100.5450, L503.6550, L505.7010, L3300.1200, L4600.0100 ####[facility] [address] [place], [place], [address] Ferritinon 04-08-2025 Ferritin [Mass/Vol] 44 ng/mL Normal 37-417 [facility] Comment on above: Performed By: #### L 3100.5450, L503.6550, L505.7010, L3300.1200, L4600.0100 ####[facility] [address] [place], [place], [address] Pulmonary Visit Reporton Pulmonary Visit Report Normal [facility] Rheumatoid Factoron 04-08-20 25 RHEUMATOID FAC < 10.0 Normal <15 [facility] Comment on above: Performed By: #### L 3100.5450, L503.6550, L505.7010, L3300.1200, L4600.0100 ####[facility] [address] [place], [place], [address] Serum DNA double strand anti body assay (units/volume)Ordered By: ARSALAN Macario on 04-08-2025 DNA double strand Ab Qn (S) [facility] Comment on above: Test not performed Serum Scl-70 antibody assay (units/volume)Ordered By: ARSALAN Macario on 04-08-2025 SCL-70 extractable nuclear Ab Qn (S) [facility] Comment on above: Test not performed Serum classic neutrophil cyt oplasmic antibody assay (units/volume)Ordered By: ARSALAN Macario on 04-08-2025 Neutrophil cytoplasmic Ab.classic Qn (S) <1:20 titer Neg:<1:20 [facility] Serum or plasma cyclic citru llinated peptide IgG antibody assay (units/volume)Ordered By: ARSALAN Macario on 04-08-2025 Cyclic citrullinated peptide IgG Qn 8 units 0-19 [facility] Comment on above: Negative <20 Weak po sitive 20 - 39 Moderate positive 40 - 59 Strong positive >59Performed at: [facility] [id number] [place], [place] [id number] Director: Naresh Pruitt PhD, Phone: [phone] Serum or plasma ferritin harsha surement (mass/volume)Ordered By: ARSALAN Macario on 04-08-2025 Ferritin [Mass/Vol] 44 ng/mL 37-417 [facility] Serum perinuclear neutrophil cytoplasmic antibody titer by immunofluorescenceOrdered By: ARSALAN Macario on 04-08-2025 Neutrophil cytoplasmic Ab.perinuclear IF (S) [Titer] <1:20 titer Neg:<1:20 [facility] Comment on above: The presence of [...] only by EIA. Ref. AM J Clin Jezalk9399;111:507-513. Serum rheumatoid factor dete ctionOrdered By: ARSALAN Macario on 04-08-2025 Rheumatoid factor Ql (S) < 10.0 IU/mL <15 [facility] FAISAL ALARCON ([id number]) 1945 M Date Time Provider Department 04/02/25 MATHIEU VIRGEN [facility] During your visit today, we recorded the following information about you: Janet King MA 04/02/2025 4:39 PM Signed Type of form: Prescription Assistance Form received via walk in When form is completed, Fax form to [facility] Form has been forwarded to Physician Desk: Dr. Virgen Prescription pended to go to [facility], as listed on form. JOSE ARMANDO Tee William J, MD 04/03/2025 10:45 AM Signed Jaylene Otoole LPN 04/03/2025 11:11 AM Signed Faxed application. Allergies As of Date: 04/02/2025 Noted Allergy Reaction AMOXICILLIN 05/11/2005 Comments: generalized erythema Date Reviewed: 01/22/2025 Reviewed by: Pricilla Kuhn LPN - Fully Assessed Reason for Visit: Patient Assistance [2636] Cmt: Ceci Kapadia form for [facility] Visit Diagnosis:Type 2 diabetes mellitus with [...] 06/06/2023 Diagno (more content not included)... Normal [facility] Chest without Contraston Chest without Contrast Normal [facility] 6 Minute Walk Teston 025 6 Minute Walk Test Normal [facility] 02-11-2025 [facility] Telephone ([facility]) ----- FAISAL ALARCON ([id number]) 1945 Osvaldo Date Time Provider Department 02/11/25 MATHIEU VIRGEN During your visit today, we recorded the following information about you: Jaylene Henley LPN 02/11/2025 9:10 AM Signed [facility] requesting DM note faxed to them documenting [...] 06/06/2023 Di (more content not included)... Normal [facility] Ema 02-06-2025 [facility] Telephone ([facility]) ----- FAISAL ALARCON ([id number]) 1945 M Date Time Provider Department 02/06/25 [...] afternoon. Ordered by cardiology - Blood-Glucose Sensor ([employer] G7 SENSOR) sayra Apply new sensor every [...] of coronary luis*more content not included)... Normal [facility] CBC W/Diff, Automatedon 05-2 PATH REV Reviewed Normal [facility] Comment on above: Result Comment: SEE REPORT IN PATIENT'S EMR AMENDED REPORT 02/05/25 1603 PATH REV previously reported as: January Performed By: #### L 100.0100 ####[facility] [address] [place], [address] CNOVon 01-26-2025 CNOV Office Visit (FAMPWS ) ----- FAISAL ALARCON ([id number]) 1945 M Date Time Provider Department 01/26/25 2:40 PM MATHIEU VIRGEN [facility] During your visit today, we recorded [...] every afternoon. Ordered by cardiology Blood-Glucose Sensor ([employer] G7 SENSOR) sayra Apply new sensor every [...] Sister Cancer (more content not included)... Normal [facility] Cardiology Visit Reporton Cardiology Visit Report Normal [facility] CNOVon 01-22-2025 CNOV Office Visit (PODIWS ) ----- FAISAL ALARCON ([id number]) 1945 M Date Time Provider Department 5/8/25 [...] every afternoon. Ordered by cardiology Blood-Glucose Sensor ([employer] G7 SENSOR) sayra Apply new sensor every [...] mouth once (more content not included)... Normal [facility] ----- FAISAL ALARCON ([id number]) 1945 M Date Time Provider Department 01/22/25 MATHIEU VIRGEN [facility] During your visit today, we recorded the following information about you: Liyah Monroy RN 01/22/2025 8:23 AM Signed Jacki with [facility] Lab called in and need the [...] afternoon. Ordered by cardiology - Blood-Glucose Sensor ([employer] G7 SENSOR) sayra Apply new sensor every [...] Mild dehy (more content not included)... Normal [facility] XR FOOT 3V AP/LAT/OBL LTon 0 01-22-2025 [...] Stable 2nd through 4th metatarsal neck fractures Manager Sourcing: [employer] Transcribe Date/Time: Jan 28 2025 7:42A Dictated by : DANELLE BHAGAT MD This examination was interpreted and the report reviewed and electronically signed by: DANELLE BHAGAT MD on Jan 28 2025 7:45AM EST [id number] Normal [facility] Absolute lymphocyte countOrd ered By: Mathieu Virgen on 01-21-2025 Lymphocytes Auto (Unsp spec) [#/Vol] 1.71 10*3/uL 0.83-4.51 [facility] Absolute neutrophil countOrd ered By: Mathieu Virgen on 01-21-2025 Neutrophils (Bld) [#/Vol] 7.3 10*3/uL 2.0-7.7 [facility] Automated lymphocyte count a s percentage of total leukocytesOrdered By: Mathieu Virgen on 01-21-2025 Lymphocytes/100 WBC Auto (Unsp spec) 16.5 % Low 19-41 [facility] Basophil percentageOrdered B y: Mathieu Virgen on 01-21-2025 Basophils/100 WBC (Bld) 0.3 % 0-1 [facility] Eosinophil percentageOrdered By: Mathieu Virgen on 01-21-2025 Eosinophils/100 WBC (Bld) 2.4 % 0-5 [facility] Erythrocyte distribution wid th ratioOrdered By: Mathieu Virgen on 01-21-2025 Erythrocyte distribution width (RBC) [Ratio] 15.9 % High 11.6-14.6 [facility] Erythrocyte distribution wid th standard deviationOrdered By: Mathieu Virgen on 01-21-2025 Erythrocyte distribution width (RBC) [Ratio] 47.5 fl High 35.1-43.9 [facility] Hematocrit Auto (Bld) [Volum e fraction]Ordered By: Mathieu Virgen on 01-21-2025 Hematocrit (Bld) [Volume fraction] 43.5 % 40-54 [facility] Hemoglobin measurementOrdere d By: Mathieu Virgen on 01-21-2025 Hemoglobin (Bld) [Mass/Vol] 14.4 g/dL 13.0-16.5 [facility] Immature granulocytes/100 WB C Auto (Bld)Ordered By: Mathieu Virgen on 01-21-2025 Immature granulocytes/100 WBC (Bld) 0.500 % 0.0-0.9 [facility] Comment on above: IG% - Immature Granu locytes (promyelocytes, myelocytes and metamyelocytes) > 1% indicates that a LEFT SHIFT is Present. MCV (mean corpuscular volume ) determinationOrdered By: Mathieu Virgen on 01-21-2025 MCV (RBC) [Entitic vol] 81.5 fL 80-94 [facility] Mean corpuscular hemoglobin (MCH) determinationOrdered By: Mathieu Virgen 01-21-2025 MCH (RBC) [Entitic mass] 27.0 pg 27.0-32.0 [facility] Mean corpuscular hemoglobin concentration (MCHC) determinationOrdered By: Mathieu Virgen on 01-21-2025 MCHC (RBC) [Mass/Vol] 33.1 g/dL 32-36 [facility] Mean platelet volume determi nationOrdered By: Mathieu Virgen on 01-21-2025 Platelet mean volume (Bld) [Entitic vol] 10.6 fL 6.2-12.0 [facility] Monocyte percentageOrdered B y: Mathieu Virgen on 01-21-2025 Monocytes/100 WBC (Bld) 10.2 % High 0-10 [facility] Neutrophil percentageOrdered By: Mathieu Virgen on 01-21-2025 Neutrophils/100 WBC (Bld) 70.1 % High 47-70 [facility] Nucleated red blood cell per centageOrdered By: Mathieu Virgen on 01-21-2025 Nucleated RBC/100 WBC (Bld) [Ratio] 0 % 0-5 [facility] Platelet countOrdered By: Shannon Virgen on 01-21-2025 Platelets (Bld) [#/Vol] 241 10*3/uL 150-450 [facility] Pulmonary Visit Reporton Pulmonary Visit Report Normal [facility] RBC Auto (Bld) [#/Vol]Ordere d By: Mathieu Virgen on 01-21-2025 RBC (Bld) [#/Vol] 5.34 10*6/uL 4.6-6.2 [facility] Review by pathologistOrdered By: Mathieu Virgen on 01-21-2025 Pathologist review Rey (Unsp spec) [Interp] Tamara bernard [facility] Pathologist review Rey (Unsp spec) [Interp] Reviewed [facility] Comment on above: Previous reported re sult: Tamara bernard Edited by: IRON on 02/05/25:1603SEE REPORT IN PATIENT'S EMR AMENDED REPORT 02/05/25 1603 PATH REV previously reported as: Tamara bernard White blood cell (WBC) count Ordered By: Mathieu Virgen on 01-21-2025 WBC (Bld) [#/Vol] 10.4 10*3/uL 4.4-11.0 [facility] Emergency Department Summary on 01-20-2025 Emergency Department Summary Normal [facility] L499.0042on 01-20-2025 Trop T High Sen 51 ng/L High <=22 [facility] Comment on above: Order Comment: *THIS IS ACTUALLY 4 HOUR TROP* Result Comment: Crit ical Result(s) Called at: by:??Results read back bysame. Performed By: #### L 499.0042 ####[facility] [address] [place], [place], [address] L499.0043on 01-20-2025 Trop T High Sen 53 ng/L High <=22 [facility] Comment on above: Order Comment: *THIS IS ACTUALLY 2 HOUR TROP* Result Comment: Crit ical Result(s) Called at: 0349 by: LAUREN DAVIS Results read back by same. AMENDED REPORT 01/20/25350 Trop T HS 4HR previously reported as: 51 H ng/L Performed By: #### L 499.0043 ####[facility] [address] [place], [place], [id number] Troponin T.cardiac [Mass/vol ume] in Serum or Plasma by High sensitivity methodOrdered By: Abraham Tierney on 01-20-2025 Troponin T.cardiac High sensitivity method [Mass/Vol] 51 ng/L High <22 [facility] Comment on above: Critical Result(s) C alled at: by: Results read back by same. Troponin T.cardiac High sensitivity method [Mass/Vol] 53 ng/L High <22 [facility] Comment on above: Critical Result(s) C alled at: 0349 by: LAUREN DAVIS Results read back by same.Previous reported result: 51 ng/LEdited by: MIRA on 01/20/25:0351 AMENDED REPORT 01/20/25350 Trop T HS 4HR previously reported as: 51 H ng/L 12 Lead EKGon 01-19-2025 12 Lead EKG Normal [facility] Absolute lymphocyte countOrd ered By: Abraham Tierney on 01-19-2025 Lymphocytes Auto (Unsp spec) [#/Vol] 2.50 10*3/uL 0.83-4.51 [facility] Absolute neutrophil countOrd ered By: Abraham Tierney on 01-19-2025 Neutrophils (Bld) [#/Vol] 8.3 10*3/uL High 2.0-7.7 [facility] Anion gap in Serum or Plasma Ordered By: Abraham Tierney on 01-19-2025 Anion gap [Moles/Vol] 14 mmol/L 5-15 [facility] Automated blood erythrocyte countOrdered By: Abraham Tierney on 01-19-2025 RBC (Bld) [#/Vol] 5.58 10*6/uL Normal 4.6-6.2 [facility] Comment on above: Performed By: #### L 100.0100, L500.2500, L501.4021 ####[facility] [address] [place], [address] Automated blood hematocrit ( percentage)Ordered By: Abraham Tierney on 01-19-2025 Hematocrit (Bld) [Volume fraction] 44.8 % Normal 40-54 [facility] Comment on above: Performed By: #### L 100.0100, L500.2500, L501.4021 ####[facility] [address] [place], [address] Automated lymphocyte count a s percentage of total leukocytesOrdered By: Abraham Tierney on 01-19-2025 Lymphocytes/100 WBC Auto (Unsp spec) 19.7 % 19-41 [facility] BUN/creatinine ratioOrdered By: Abraham Tierney on 01-19-2025 Urea nitrogen/Creatinine [Mass ratio] 25.0 mg/mg High 10- [facility] Basic Metabolic Profile (BMP )on 01-19-2025 BUN/CRE 25.0 RATIO High - [facility] Comment on above: Performed By: #### L 100.0100, L500.2500, L501.4021 ####[facility] [address] [place], [address] ECRCL 64.50 ml/min Normal 50-250 [facility] Comment on above: Performed By: #### L 100.0100, L500.2500, L501.4021 ####[facility] [address] [place], [address] GAP 14 Normal 5-15 [facility] Comment on above: Performed By: #### L 100.0100, L500.2500, L501.4021 ####[facility] [address] [place], [address] Potassium [Moles/Vol] 3.9 mmol/L Normal 3.3-5.1 [facility] Comment on above: Performed By: #### L 100.0100, L500.2500, L501.4021 ####[facility] [address] [place], [address] Basophil percentageOrdered B y: Abraham Le on 01-19-2025 Basophils/100 WBC (Bld) 0.5 % Normal 0-1 [facility] Comment on above: Performed By: #### L 100.0100, L500.2500, L501.4021 ####[facility] [address] [place], [address] CBC W/Diff, Automatedon 05 Absolute Lymph 2.50 X10 3/uL Normal 0.83-4.51 [facility] Comment on above: Performed By: #### L 100.0100, L500.2500, L501.4021 ####[facility] [address] [place], [address] Absolute Neut 8.3 X10 3/uL High 2.0-7.7 [facility] Comment on above: Performed By: #### L 100.0100, L500.2500, L501.4021 ####[facility] [address] [place], [address] IG% 0.500 Normal 0.0-0.9 [facility] Comment on above: Result Comment: IG% - Immature Granulocytes (promyelocytes, myelocytes andmetamyelocytes) > 1% indicates that a LEFT SHIFT is Present. Performed By: #### L 100.0100, L500.2500, L501.4021 ####[facility] [address] [place], [address] Lymphocytes/100 WBC (Bld) 19.7 % Normal 19-41 [facility] Comment on above: Performed By: #### L 100.0100, L500.2500, L501.4021 ####[facility] [address] [place], [address] Nucleated RBC (Bld) [#/Vol] 0 10*3/uL Normal 0-5 [facility] Comment on above: Performed By: #### L 100.0100, L500.2500, L501.4021 ####[facility] [address] [place], [address] RDW SD 46.3 fl High 35.1-43.9 [facility] Comment on above: Performed By: #### L 100.0100, L500.2500, L501.4021 ####[facility] [address] [place], [address] Carbon dioxide, total [Moles /volume] in Central venous bloodOrdered By: Abraham Tierney on 01-19-2025 CO2 [Moles/Vol] 22.5 mmol/L Normal 21.0-32.0 [facility] Comment on above: Performed By: #### L 100.0100, L500.2500, L501.4021 ####[facility] [address] [place], [address] Chest 1 View (Portable)on Chest 1 View (Portable) Normal [facility] Chloride assayOrdered By: Pineda Tierney on 01-19-2025 Chloride [Moles/Vol] 98 mmol/L Normal 98-108 [facility] Comment on above: Performed By: #### L 100.0100, L500.2500, L501.4021 ####[facility] [address] [place], [address] Eosinophil percentageOrdered By: Abraham Tierney on 01-19-2025 Eosinophils/100 WBC (Bld) 2.7 % Normal 0-5 [facility] Comment on above: Performed By: #### L 100.0100, L500.2500, L501.4021 ####[facility] [address] [place], [address] Erythrocyte distribution wid th ratioOrdered By: Abraham Tierney on 01-19-2025 Erythrocyte distribution width (RBC) [Ratio] 16.0 % High 11.6-14.6 [facility] Comment on above: Performed By: #### L 100.0100, L500.2500, L501.4021 ####[facility] [address] [place], [address] Erythrocyte distribution wid th standard deviationOrdered By: Abraham Tierney on 01-19-2025 Erythrocyte distribution width (RBC) [Ratio] 46.3 fl High 35.1-43.9 [facility] Glomerular filtration rate ( GFR) estimation/1.73 sq m using serum, plasma, or whole bOrdered By: Abraham Tierney on 01-19-2025 GFR/1.73 sq M.predicted among non-blacks MDRD (S/P/Bld) [Vol rate/Area] 58 mL/min/{1.73_m2} Low >60 [facility] Comment on above: mL/min/1.73m2 CKD-EP I Creatinine Equation (2020) Result Comment: mL/m in/1.73m2 CKD-EPI Creatinine Equation (2020) Performed By: #### L 100.0100, L500.2500, L501.4021 ####[facility] [address] [place], [address] Hemoglobin measurementOrdere d By: Abraham Tierney on 01-19-2025 Hemoglobin (Bld) [Mass/Vol] 15.0 g/dL Normal 13.0-16.5 [facility] Comment on above: Performed By: #### L 100.0100, L500.2500, L501.4021 ####[facility] [address] [place], [address] Immature granulocytes/100 WB C Auto (Bld)Ordered By: Abraham Tierney on 01-19-2025 Immature granulocytes/100 WBC (Bld) 0.500 % 0.0-0.9 [facility] Comment on above: IG% - Immature Granu locytes (promyelocytes, myelocytes and metamyelocytes) > 1% indicates that a LEFT SHIFT is Present. L501.4021on 01-19-2025 Trop T High Sen 49 ng/L High <=22 [facility] Comment on above: Performed By: #### L 100.0100, L500.2500, L501.4021 ####[facility] [address] [place], [address] MCV (mean corpuscular volume ) determinationOrdered By: Abraham Tierney on 01-19-2025 MCV (RBC) [Entitic vol] 80.3 fL Normal 80-94 [facility] Comment on above: Performed By: #### L 100.0100, L500.2500, L501.4021 ####[facility] [address] [place], [address] Mean corpuscular hemoglobin (MCH) determinationOrdered By: Abraham Tierney on 01-19-2025 MCH (RBC) [Entitic mass] 26.9 pg Low 27.0-32.0 [facility] Comment on above: Performed By: #### L 100.0100, L500.2500, L501.4021 ####[facility] [address] [place], [address] Mean corpuscular hemoglobin concentration (MCHC) determinationOrdered By: Abraham Tierney on 01-19-2025 MCHC (RBC) [Mass/Vol] 33.5 g/dL Normal 32-36 [facility] Comment on above: Performed By: #### L 100.0100, L500.2500, L501.4021 ####[facility] [address] [place], [address] Mean platelet volume determi nationOrdered By: Abraham Tierney on 01-19-2025 Platelet mean volume (Bld) [Entitic vol] 10.9 fL Normal 6.2-12.0 [facility] Comment on above: Performed By: #### L 100.0100, L500.2500, L501.4021 ####[facility] [address] [place], [address] Monocyte percentageOrdered B y: Abraham Tierney on 01-19-2025 Monocytes/100 WBC (Bld) 11.4 % High 0-10 [facility] Comment on above: Performed By: #### L 100.0100, L500.2500, L501.4021 ####[facility] [address] [place], [address] Neutrophil percentageOrdered By: Abraham Tierney on 01-19-2025 Neutrophils/100 WBC (Bld) 65.2 % Normal 47-70 [facility] Comment on above: Performed By: #### L 100.0100, L500.2500, L501.4021 ####[facility] [address] [place], [address] Nucleated red blood cell per centageOrdered By: Abraham Tierney on 01-19-2025 Nucleated RBC/100 WBC (Bld) [Ratio] 0 % 0-5 [facility] Platelet countOrdered By: Pineda Tierney on 01-19-2025 Platelets (Bld) [#/Vol] 273 10*3/uL Normal 150-450 [facility] Comment on above: Performed By: #### L 100.0100, L500.2500, L501.4021 ####[facility] [address] [place], [address] Potassium measurement (mass/ volume)Ordered By: Abraham Tierney on 01-19-2025 Potassium (Unsp spec) [Mass/Vol] 3.9 mmol/L 3.3-5.1 [facility] Serum creatinine measurement (mass/volume)Ordered By: Abraham Tierney on 01-19-2025 Creatinine [Mass/Vol] 1.25 mg/dL High 0.70-1.20 [facility] Comment on above: Performed By: #### L 100.0100, L500.2500, L501.4021 ####[facility] [address] [place], [address] Serum glucose measurement (m ass/volume)Ordered By: Abraham Tierney on 01-19-2025 Glucose [Mass/Vol] 156 mg/dL High 70-99 [facility] Comment on above: Performed By: #### L 100.0100, L500.2500, L501.4021 ####[facility] [address] [place], [address] Serum or plasma calcium nahomy urement (mass/volume)Ordered By: Abraham Tierney on 01-19-2025 Calcium [Mass/Vol] 9.9 mg/dL Normal 7.6-11.0 [facility] Comment on above: Performed By: #### L 100.0100, L500.2500, L501.4021 ####[facility] [address] [place], [address] Serum or plasma urea nitroge n measurement (mass/volume)Ordered By: Abraham Tierney on 01-19-2025 Urea nitrogen [Mass/Vol] 31 mg/dL High 4-19 [facility] Comment on above: Performed By: #### L 100.0100, L500.2500, L501.4021 ####[facility] [address] [place], [address] Sodium levelOrdered By: Abraham Tierney on 01-19-2025 Sodium [Moles/Vol] 134 mmol/L Normal 133-145 [facility] Comment on above: Performed By: #### L 100.0100, L500.2500, L501.4021 ####[facility] [address] [place], [address] Troponin T.cardiac [Mass/vol ume] in Serum or Plasma by High sensitivity methodOrdered By: Abraham Tierney on 01-19-2025 Troponin T.cardiac High sensitivity method [Mass/Vol] 49 ng/L High <22 [facility] White blood cell (WBC) count Ordered By: Abraham Tierney on 01-19-2025 WBC (Bld) [#/Vol] 12.7 10*3/uL High 4.4-11.0 [facility] Comment on above: Performed By: #### L 100.0100, L500.2500, L501.4021 ####[facility] [address] [place], [place], [address] CNOVon 01-12-2025 [facility] FAISAL ALARCON ([id number]) 1945 M Date Time Provider Department 01/12/25 [...] pk-yrs) Ty (more content not included)... Normal [facility] 01-12-2025 CNPN Telephone (FAMPWS) ----- FAISAL ALARCON ([id number]) 1945 M Date Time Provider Department 01/12/25 MATHIEU VIRGEN [facility] During your visit today, we recorded [...] but she has questions re: what the finished goods planner would do. Transferred to clinical for assistance. [...] [S92.909A] Order(s):CONSULT TO PODIATRY [9034] Order #: [id number]: [id number] FUTURE POST - OP SHOE [[id number]] Order #: [id number] Prescriptions as of 01/16/2025 - carvedilol (COREG) [...] LANCETS) lancets (more content not included)... Normal [facility] XR FOOT 3V AP/LAT/OBL LTon 0 01-12-2025 [...] joint. 3. Small plantar calcaneal heel spur. Manager Sourcing: BERNIE Transcribe Date/Time: Jan 12 2025 7:00P Dictated by : NARDA REEVES MD This examination was interpreted and the report reviewed and electronically signed by: NARDA REEVES MD on Jan 12 2025 7:02PM EST [id number] Normal [facility] XR Foot - left AP and Latera l and obliqueon 01-12-2025 IMPRESSION: 1. Acute appearing fracture through the distal neck of the second third and fourth metatarsals. 2. Mild bunion deformity with mild degenerative changes at the first MTP joint. 3. Small plantar calcaneal heel spur. Manager Sourcing: BERNIE Transcribe Date/Time: Jan 12 2025 7:00P [...] joint. 3. Small plantar calcaneal heel spur. Manager Sourcing: PSCB Transcribe Date/Time: Jan 12 2025 7:00P Dictated by : NARDA REEVES MD This examination was interpreted and the report reviewed and electronically signed by: NARDA REEVES MD on Jan 12 2025 7:02PM EST [facility] Radiology Study observation (narrative) Armando brannon [facility] XR Foot - left AP and Latera l and obliqueOrdered By: Cc Provider on 01-12-2025 [facility] Cardiology Visit Reporton Cardiology Visit Report Normal [facility] CNPSharlene 12-03-2024 CNPN Telephone (FAMPWS) ----- FAISAL ALARCON ([id number]) 1945 M Date Time Provider Department 12/03/24 MATHIEU VIRGEN During your visit today, we recorded the following information about you: Aly Marcial MA 12/03/2024 6:43 PM Signed Received PA from pharmacy for Fiasp Flextouch. Tried to complete through covermymeds but was instructed to call primetime at . Spoke to [facility] who will submit info to pharmacy [...] PM Signed Pt and caregiver notified via [employer]. Allergies As of Date: 12/03/2024 Noted Allergy [...] [E66.812] 01/31/2021 (more content not included)... Normal [facility] CNOVon 12-02-2024 CNOV Office Visit ([facility] ) ----- FAISAL ALARCON ([id number]) 1945 M Date Time Provider Department 12/02/24 [...] a day before meals. Getting through [facility] insulin glargine (BASAGLAR KWIKPEN U-100 INSULIN) [...] mouth every 12 hours. Prescribed by outside cartography professor No current facility-administered medications for this visit. [...] testing as (more content not included)... Normal [facility] CBC-Complete Blood Cnt No Di ffon 11-29-2024 Erythrocyte distribution width (RBC) [Ratio] 17.0 % High 11.6-14.6 [facility] Comment on above: Performed By: #### L 502.0250, L500.4050, L500.4100, L501.9985, L100.0500 ####[facility] [address] [place], [address] Hematocrit (Bld) [Volume fraction] 44.1 % Normal 40-54 [facility] Comment on above: Performed By: #### L 502.0250, L500.4050, L500.4100, L501.9985, L100.0500 ####[facility] [address] [place], [address] Hemoglobin (Bld) [Mass/Vol] 14.6 g/dL Normal 13.0-16.5 [facility] Comment on above: Performed By: #### L 502.0250, L500.4050, L500.4100, L501.9985, L100.0500 ####[facility] [address] [place], [address] MCH (RBC) [Entitic mass] 26.6 pg Low 27.0-32.0 [facility] Comment on above: Performed By: #### L 502.0250, L500.4050, L500.4100, L501.9985, L100.0500 ####[facility] [address] [place], [address] MCHC (RBC) [Mass/Vol] 33.1 g/dL Normal 32-36 [facility] Comment on above: Performed By: #### L 502.0250, L500.4050, L500.4100, L501.9985, L100.0500 ####[facility] [address] [place], [address] MCV (RBC) [Entitic vol] 80.3 fL Normal 80-94 [facility] Comment on above: Performed By: #### L 502.0250, L500.4050, L500.4100, L501.9985, L100.0500 ####[facility] [address] [place], [address] Platelet mean volume (Bld) [Entitic vol] 11.2 fL Normal 6.2-12.0 [facility] Comment on above: Performed By: #### L 502.0250, L500.4050, L500.4100, L501.9985, L100.0500 ####[facility] [address] [place], [address] Platelets (Bld) [#/Vol] 282 10*3/uL Normal 150-450 [facility] Comment on above: Performed By: #### L 502.0250, L500.4050, L500.4100, L501.9985, L100.0500 ####[facility] [address] [place], [address] RBC (Bld) [#/Vol] 5.49 10*6/uL Normal 4.6-6.2 [facility] Comment on above: Performed By: #### L 502.0250, L500.4050, L500.4100, L501.9985, L100.0500 ####[facility] [address] [place], [address] RDW SD 49.3 fl High 35.1-43.9 [facility] Comment on above: Performed By: #### L 502.0250, L500.4050, L500.4100, L501.9985, L100.0500 ####[facility] [address] [place], [address] WBC (Bld) [#/Vol] 12.1 10*3/uL High 4.4-11.0 [facility] Comment on above: Performed By: #### L 502.0250, L500.4050, L500.4100, L501.9985, L100.0500 ####[facility] [address] [place], [address] Erythrocyte distribution wid th ratioOrdered By: Mathieu Virgen on 11-29-2024 Erythrocyte distribution width (RBC) [Ratio] 17.0 % High 11.6-14.6 [facility] Erythrocyte distribution wid th standard deviationOrdered By: Mathieu Virgen on 11-29-2024 Erythrocyte distribution width (RBC) [Entitic vol] 49.3 fL High 35.1-43.9 [facility] Erythrocyte distribution width (RBC) [Ratio] 49.3 fl High 35.1-43.9 [facility] Hematocrit Auto (Bld) [Volum e fraction]Ordered By: Mathieu Virgen on 11-29-2024 Hematocrit (Bld) [Volume fraction] 44.1 % 40-54 [facility] Hemoglobin measurementOrdere d By: Mathieu Virgen on 11-29-2024 Hemoglobin (Bld) [Mass/Vol] 14.6 g/dL 13.0-16.5 [facility] MCV (mean corpuscular volume ) determinationOrdered By: Mathieu Virgen on 11-29-2024 MCV (RBC) [Entitic vol] 80.3 fL 80-94 [facility] Mean corpuscular hemoglobin (MCH) determinationOrdered By: Mathieu Virgen on 11-29-2024 MCH (RBC) [Entitic mass] 26.6 pg Low 27.0-32.0 [facility] Mean corpuscular hemoglobin concentration (MCHC) determinationOrdered By: Mathieu Virgen on 11-29-2024 MCHC (RBC) [Mass/Vol] 33.1 g/dL 32-36 [facility] Mean platelet volume determi nationOrdered By: Mathieu Virgen on 11-29-2024 Platelet mean volume (Bld) [Entitic vol] 11.2 fL 6.2-12.0 [facility] Platelet countOrdered By: Shannon Virgen on 11-29-2024 Platelets (Bld) [#/Vol] 282 10*3/uL 150-450 [facility] RBC Auto (Bld) [#/Vol]Ordere d By: Mathieu Virgen on 11-29-2024 RBC (Bld) [#/Vol] 5.49 10*6/uL 4.6-6.2 [facility] White blood cell (WBC) count Ordered By: Mathieu Virgen on 11-29-2024 WBC (Bld) [#/Vol] 12.1 10*3/uL High 4.4-11.0 [facility] Albumin DL <= 20 mg/L (U) [M ass/Vol]Ordered By: Mathieu Virgen on 11-28-2024 Urine Random Microalbumin 17.0 mg/L NO RANGE EST. [facility] Anion gap in Serum or Plasma Ordered By: Mathieu Virgen on 11-28-2024 Anion gap [Moles/Vol] 13 mmol/L - [facility] BUN/creatinine ratioOrdered By: Mathieu Virgen on 11-28-2024 Urea nitrogen/Creatinine [Mass ratio] 19.6 mg/mg 10-20 [facility] Bilirubin, totalOrdered By: Mathieu Virgen on 11-28-2024 Bilirubin [Mass/Vol] 0.49 mg/dL 0.00-1.30 [facility] CNPNon 11-28-2024 CNPN Telephone (FAMPWS) ----- FAISAL ALARCON ([id number]) 1945 M Date Time Provider Department 11/28/24 MATHIEU VIRGENWS During your visit today, we recorded the following information about you: Miley Pemberton MA 11/28/2024 4:58 PM Signed Pt had blood work done. View External Labs - Chemistry [ID [id number]] View External Labs - Miscellaneous Lab [ID [id number]] View External Labs - Chemistry [ID [id number]] JOSE ARMANDO Corrales William J, MD 11/29/2024 [...] afternoon. Ordered by cardiology - Blood-Glucose Sensor ([employer] G7 SENSOR) sayra Apply new sensor every [...] mouth every 12 hours. Prescribed by outside cartography professor - insulin glargine (BASAGLAR KWIKPEN U-100 INSULIN) [...] fibrillation [ (more content not included)... Normal [facility] Calculated very low density lipoprotein (VLDL) cholesterol measurementOrdered By: Mathieu Virgen on 11-28-2024 Calculated very low density lipoprotein (VLDL) cholesterol measurement 22 mg/dL 5-40 [facility] VLDL Cholesterol 22 mg/dL 5-40 [facility] Carbon dioxide, total [Moles /volume] in Central venous bloodOrdered By: Mathieu Virgen on 11-28-2024 CO2 [Moles/Vol] 21.4 mmol/L 21.0-32.0 [facility] Chloride assayOrdered By: Shannon Virgen on 11-28-2024 Chloride [Moles/Vol] 101 mmol/L 98-108 [facility] Comprehensive Metabolic Prof ilon 11-28-2024 Albumin [Mass/Vol] 4.0 g/dL Normal 3.4-4.8 [facility] Comment on above: Order Comment: CBC Performed By: #### L 502.0250, L500.4050, L500.4100, L501.9985, L100.0500 ####[facility] [address] [place], [address] Albumin/Globulin [Mass ratio] 1.2 {ratio} Normal 0.9-2.4 [facility] Comment on above: Order Comment: CBC Performed By: #### L 502.0250, L500.4050, L500.4100, L501.9985, L100.0500 ####[facility] [address] [place], [address] ALK PHOS 110 U/L Normal 40-129 [facility] Comment on above: Order Comment: CBC Performed By: #### L 502.0250, L500.4050, L500.4100, L501.9985, L100.0500 ####[facility] [address] [place], [address] ALT [Catalytic activity/Vol] 15 U/L Normal <=46 [facility] Comment on above: Order Comment: CBC Performed By: #### L 502.0250, L500.4050, L500.4100, L501.9985, L100.0500 ####[facility] [address] [place], [address] AST [Catalytic activity/Vol] 19 U/L Normal <=37 [facility] Comment on above: Order Comment: CBC Performed By: #### L 502.0250, L500.4050, L500.4100, L501.9985, L100.0500 ####[facility] [address] [place], [address] Bilirubin [Mass/Vol] 0.49 mg/dL Normal 0.00-1.30 [facility] Comment on above: Order Comment: CBC Performed By: #### L 502.0250, L500.4050, L500.4100, L501.9985, L100.0500 ####[facility] [address] [place], [address] BUN/CRE 19.6 RATIO Normal 10-20 [facility] Comment on above: Order Comment: CBC Performed By: #### L 502.0250, L500.4050, L500.4100, L501.9985, L100.0500 ####[facility] [address] [place], [address] Calcium [Mass/Vol] 9.3 mg/dL Normal 7.6-11.0 [facility] Comment on above: Order Comment: CBC Performed By: #### L 502.0250, L500.4050, L500.4100, L501.9985, L100.0500 ####[facility] [address] [place], [address] Chloride [Moles/Vol] 101 mmol/L Normal 98-108 [facility] Comment on above: Order Comment: CBC Performed By: #### L 502.0250, L500.4050, L500.4100, L501.9985, L100.0500 ####[facility] [address] [place], [address] CO2 [Moles/Vol] 21.4 mmol/L Normal 21.0-32.0 [facility] Comment on above: Order Comment: CBC Performed By: #### L 502.0250, L500.4050, L500.4100, L501.9985, L100.0500 ####[facility] [address] [place], [address] Creatinine [Mass/Vol] 1.00 mg/dL Normal 0.70-1.20 [facility] Comment on above: Order Comment: CBC Performed By: #### L 502.0250, L500.4050, L500.4100, L501.9985, L100.0500 ####[facility] [address] [place], [address] GAP 13 Normal 5-15 [facility] Comment on above: Order Comment: CBC Performed By: #### L 502.0250, L500.4050, L500.4100, L501.9985, L100.0500 ####[facility] [address] [place], [address] GFR/1.73 sq M.predicted among non-blacks MDRD (S/P/Bld) [Vol rate/Area] 76 mL/min/{1.73_m2} Normal >60 [facility] Comment on above: Order Comment: CBC Result Comment: mL/m in/1.73m2 CKD-EPI Creatinine Equation (2020) Performed By: #### L 502.0250, L500.4050, L500.4100, L501.9985, L100.0500 ####[facility] [address] [place], [address] Globulin (S) [Mass/Vol] 3.3 g/dL Normal 2.2-4.2 [facility] Comment on above: Order Comment: CBC Performed By: #### L 502.0250, L500.4050, L500.4100, L501.9985, L100.0500 ####[facility] [address] [place], [address] Glucose [Mass/Vol] 121 mg/dL High 70-99 [facility] Comment on above: Order Comment: CBC Performed By: #### L 502.0250, L500.4050, L500.4100, L501.9985, L100.0500 ####[facility] [address] [place], [address] Potassium [Moles/Vol] 4.3 mmol/L Normal 3.3-5.1 [facility] Comment on above: Order Comment: CBC Performed By: #### L 502.0250, L500.4050, L500.4100, L501.9985, L100.0500 ####[facility] [address] [place], [address] Sodium [Moles/Vol] 136 mmol/L Normal 133-145 [facility] Comment on above: Order Comment: CBC Performed By: #### L 502.0250, L500.4050, L500.4100, L501.9985, L100.0500 ####[facility] [address] [place], [address] T PROT 7.3 g/dL Normal 5.9-8.4 [facility] Comment on above: Order Comment: CBC Performed By: #### L 502.0250, L500.4050, L500.4100, L501.9985, L100.0500 ####[facility] [address] [place], [address] Urea nitrogen [Mass/Vol] 20 mg/dL High 4-19 [facility] Comment on above: Order Comment: CBC Performed By: #### L 502.0250, L500.4050, L500.4100, L501.9985, L100.0500 ####[facility] [address] [place], [address] Creatinine Unsp time (U) [Ma ss/Vol]Ordered By: Mathieu Virgen on 11-28-2024 Creatinine (U) [Mass/Vol] 90.60 mg/dL 39-259 [facility] GFR/1.73 sq M.predicted ismael g non-blacks MDRD (S/P/Bld) [Vol rate/Area]Ordered By: Mathieu Virgen on 11-28-2024 Estimated GFR (MDRD) Non-Af Amer 76 >60 [facility] Comment on above: mL/min/1.73m2 CKD-EP I Creatinine Equation (2020) Glomerular filtration rate ( GFR) estimation/1.73 sq m using serum, plasma, or whole bOrdered By: Mathieu Virgen on 11-28-2024 GFR/1.73 sq M.predicted among non-blacks MDRD (S/P/Bld) [Vol rate/Area] 76 mL/min/{1.73_m2} >60 [facility] Comment on above: mL/min/1.73m2 CKD-EP I Creatinine Equation (2020) Hemoglobin A1con 11-28-2024 HbA1c (Bld) [Mass fraction] 7.0 % Normal <=5.6 [facility] Comment on above: Performed By: #### L 502.0250, L500.4050, L500.4100, L501.9985, L100.0500 ####[facility] [address] [place], [place], [address] Hemoglobin A1c percentageOrd ered By: Mathieu Virgen on 11-28-2024 HbA1c (Bld) [Mass fraction] 7.0 % >5.7 [facility] LDL calc ser/plasOrdered By: Mathieu Virgen on 11-28-2024 Cholesterol in LDL [Mass/Vol] 52 mg/dL [facility] Comment on above: Xyspwkfgrf=721-387 m g/dL & Higher Zzwd=122 mg/dL or greater LDL Cholesterol, Calculated 52 mg/dL [facility] Comment on above: Gvdvsxogmw=969-504 m g/dL & Higher Gceo=112 mg/dL or greater Laboratory - Chemistry and C hemistry - challengeOrdered By: Mathieu Virgen on 11-28-2024 AST [Catalytic activity/Vol] 19 U/L <38 [facility] Lipid Profileon 11-28-2024 CHOL:HDL 3.06 Normal [facility] Comment on above: Performed By: #### L 502.0250, L500.4050, L500.4100, L501.9985, L100.0500 ####[facility] [address] [place], [address] Cholesterol [Mass/Vol] 110 mg/dL Normal <=200 [facility] Comment on above: Result Comment: Chol esterol level, Desirable <200 mg/dLBorderline high cholesterol 200-239 mg/dLHigh cholesterol >=240 mg/dLRecommendations of the NCEP Adult Treatment Panel for thefollowing risk-cutoff thresholds for the [place] Americant[place] health. Performed By: #### L 502.0250, L500.4050, L500.4100, L501.9985, L100.0500 ####[facility] [address] [place], [address] Cholesterol in HDL [Mass/Vol] 36 mg/dL Low [facility] Comment on above: Result Comment: [place] onal Cholesterol Education Program (NCEP) guidelines:<40 mg/dL: Low HDL-cholesterol (major risk factor for CHD)>= 60 mg/dL: High HDL-cholesterol (negative risk factor forCHD)HDL-cholesterol is affected by a number of factors, e.g.smoking, exercise, hormones, sex and age. Performed By: #### L 502.0250, L500.4050, L500.4100, L501.9985, L100.0500 ####[facility] [address] [place], [address] Cholesterol in LDL [Mass/Vol] 52 mg/dL Normal [facility] Comment on above: Result Comment: Bord fublkl=149-185 mg/dL Higher Lcbq=263 mg/dL or greater Performed By: #### L 502.0250, L500.4050, L500.4100, L501.9985, L100.0500 ####[facility] [address] [place], [address] Cholesterol in VLDL [Mass/Vol] 22 mg/dL Normal 5-40 [facility] Comment on above: Performed By: #### L 502.0250, L500.4050, L500.4100, L501.9985, L100.0500 ####[facility] [address] [place], [address] Triglyceride [Mass/Vol] 108 mg/dL Normal [facility] Comment on above: Result Comment: The drugs N-Acetylcysteine and Metamizole may falselydepress this assay.Normal range: <150 mg/dLBorderline High: 150-199 mg/dLHigh: 200-499 mg/dLVery High: >500 mg/dL Performed By: #### L 502.0250, L500.4050, L500.4100, L501.9985, L100.0500 ####[facility] [address] [place], [address] Microalb:Creat Ratio,Random URon 11-28-2024 MALB:CREAT 187.6 mg/g CRE Normal [facility] Comment on above: Performed By: #### L 502.0250, L500.4050, L500.4100, L501.9985, L100.0500 ####[facility] [address] [place], [address] Creatinine [Mass/Vol] 90.60 mg/dL Normal 39-259 [facility] Comment on above: Performed By: #### L 502.0250, L500.4050, L500.4100, L501.9985, L100.0500 ####[facility] [address] [place], [address] MICROALBUMIN,UR 17.0 mg/L Normal NO RANGE EST. [facility] Comment on above: Performed By: #### L 502.0250, L500.4050, L500.4100, L501.9985, L100.0500 ####[facility] [address] [place], [address] Microalbumin/creat ratio urO rdered By: Mathieu Virgen on 11-28-2024 Urine Microalbumin/Creatinine Ratio 187.6 mg/g CRE [facility] Potassium (Unsp spec) [Mass/ Vol]Ordered By: Mathieu Virgen on 11-28-2024 Potassium [Moles/Vol] 4.3 mmol/L 3.3-5.1 [facility] Potassium measurement (mass/ volume)Ordered By: Mathieu Virgen on 11-28-2024 Potassium (Unsp spec) [Mass/Vol] 4.3 mmol/L 3.3-5.1 [facility] Random urine creatinine nahomy urement (mass/volume)Ordered By: Mathieu Virgen on 11-28-2024 Creatinine Unsp time (U) [Mass/Vol] 90.60 mg/dL 39-259 [facility] Screening total cholesterol/ high density lipoprotein (HDL) cholesterol ratioOrdered By: Mathieu Virgen on 11-28-2024 Cholesterol.total/Cholest abdulkadir in HDL [Mass ratio] 3.06 {ratio} [facility] Serum creatinine measurement (mass/volume)Ordered By: Mathieu Virgen on 11-28-2024 Creatinine [Mass/Vol] 1.00 mg/dL 0.70-1.20 [facility] Serum globulin measurementOr dered By: Mathieu Virgen on 11-28-2024 Globulin (S) [Mass/Vol] 3.3 g/dL 2.2-4.2 [facility] Serum glucose measurement (m ass/volume)Ordered By: Mathieu Virgen on 11-28-2024 Glucose [Mass/Vol] 121 mg/dL High 70-99 [facility] Serum or plasma alanine cottrell otransferase (ALT) measurementOrdered By: Mathieu Virgen on 11-28-2024 ALT [Catalytic activity/Vol] 15 U/L <47 [facility] Serum or plasma albumin nahomy urement (mass/volume)Ordered By: Mathieu Virgen on 11-28-2024 Albumin [Mass/Vol] 4.0 g/dL 3.4-4.8 [facility] Serum or plasma albumin/glob ulin mass ratioOrdered By: Mathieu Virgen on 11-28-2024 Albumin/Globulin [Mass ratio] 1.2 {ratio} 0.9-2.4 [facility] Serum or plasma alkaline ahsan sphatase measurementOrdered By: Mathieu Virgen on 11-28-2024 ALP [Catalytic activity/Vol] 110 U/L 40-129 [facility] Serum or plasma calcium nahomy urement (mass/volume)Ordered By: Mathieu Virgen on 11-28-2024 Calcium [Mass/Vol] 9.3 mg/dL 7.6-11.0 [facility] Serum or plasma cholesterol in HDL measurement (mass/volume)Ordered By: Mathieu Virgen on 11-28-2024 Cholesterol in HDL [Mass/Vol] 36 mg/dL Low >40 [facility] Comment on above: National Cholesterol Education Program (NCEP) guidelines:<40 mg/dL: Low HDL-cholesterol (major risk factor for CHD)>= 60 mg/dL: High HDL-cholesterol (negative risk factor for CHD)HDL-cholesterol is affected by a number of factors, e.g. smoking, exercise, hormones, sex and age. Serum or plasma cholesterol measurement (mass/volume)Ordered By: Mathieu Virgen on 11-28-2024 Cholesterol [Mass/Vol] 110 mg/dL <201 [facility] Comment on above: Cholesterol level, D esirable <200 mg/dLBorderline high cholesterol 200-239 mg/dLHigh cholesterol >=240 mg/dLRecommendations of the NCEP Adult Treatment Panel for the following risk-cutoff thresholds for the [place] population. Serum or plasma urea nitroge n measurement (mass/volume)Ordered By: Mathieu Virgen on 11-28-2024 Urea nitrogen [Mass/Vol] 20 mg/dL High 4-19 [facility] Sodium levelOrdered By: Keny Virgen on 11-28-2024 Sodium [Moles/Vol] 136 mmol/L 133-145 [facility] Total proteinOrdered By: Louis Virgen on 11-28-2024 Protein [Mass/Vol] 7.3 g/dL 5.9-8.4 [facility] Triglycerides measurementOrd ered By: Mathieu Virgen on 11-28-2024 Triglyceride [Mass/Vol] 108 mg/dL <199 [facility] Comment on above: The drugs N-Acetylcy steine and Metamizole may falsely depress this assay. Normal range: <150 mg/dLBorderline High: 150-199 mg/dLHigh: 200-499 mg/dLVery High: >500 mg/dL Urine albumin measurement [facility] detection limit of 20 mg/L or less (mass/volume)Ordered By: Mathieu Virgen on 11-28-2024 Albumin DL <= 20 mg/L (U) [Mass/Vol] 17.0 mg/L NO RANGE EST. [facility] Anion gap in Serum or Plasma Ordered By: Mathieu Virgen on 11-27-2024 Anion gap [Moles/Vol] 17 mmol/L High 5-15 [facility] BUN/creatinine ratioOrdered By: Mathieu Virgen on 11-27-2024 Urea nitrogen/Creatinine [Mass ratio] 18.3 mg/mg - [facility] Basic Metabolic Profile (BMP )on 11-27-2024 BUN/CRE 18.3 RATIO Normal - [facility] Comment on above: Performed By: #### L 501.5200, L500.2500 ####[facility] [address] [place], [address] Calcium [Mass/Vol] 9.3 mg/dL Normal 7.6-11.0 [facility] Comment on above: Performed By: #### L 501.5200, L500.2500 ####[facility] [address] [place], [address] Chloride [Moles/Vol] 100 mmol/L Normal 98-108 [facility] Comment on above: Performed By: #### L 501.5200, L500.2500 ####[facility] [address] [place], [address] CO2 [Moles/Vol] 18.9 mmol/L Low 21.0-32.0 [facility] Comment on above: Performed By: #### L 501.5200, L500.2500 ####[facility] [address] [place], [address] Creatinine [Mass/Vol] 1.19 mg/dL Normal 0.70-1.20 [facility] Comment on above: Performed By: #### L 501.5200, L500.2500 ####[facility] [address] [place], [address] GAP 17 High 5-15 [facility] Comment on above: Performed By: #### L 501.5200, L500.2500 ####[facility] [address] [place], [address] GFR/1.73 sq M.predicted among non-blacks MDRD (S/P/Bld) [Vol rate/Area] 62 mL/min/{1.73_m2} Normal >60 [facility] Comment on above: Result Comment: mL/m in/1.73m2 CKD-EPI Creatinine Equation (2020) Performed By: #### L 501.5200, L500.2500 ####[facility] [address] [place], [address] Glucose [Mass/Vol] 142 mg/dL High 70-99 [facility] Comment on above: Performed By: #### L 501.5200, L500.2500 ####[facility] [address] [place], [address] Potassium [Moles/Vol] 5.0 mmol/L Normal 3.3-5.1 [facility] Comment on above: Result Comment: Hemo lysis present, Results??could be affected.?? Performed By: #### L 501.5200, L500.2500 ####[facility] [address] [place], [address] Sodium [Moles/Vol] 136 mmol/L Normal 133-145 [facility] Comment on above: Performed By: #### L 501.5200, L500.2500 ####[facility] [address] [place], [address] Urea nitrogen [Mass/Vol] 22 mg/dL High 4-19 [facility] Comment on above: Performed By: #### L 501.5200, L500.2500 ####[facility] [address] [place], [address] BUN Normal 4-19 [facility] Comment on above: Result Comment: NEED REORDERED DUE TO MEDITECH ISSUE. Performed By: #### L 100.0500, L501.5200, L500.2500 ####[facility] [address] [place], [address] BUN/CRE Normal 10-20 [facility] Comment on above: Result Comment: NEED REORDERED DUE TO MEDITECH ISSUE. Performed By: #### L 100.0500, L501.5200, L500.2500 ####[facility] [address] [place], [address] Calcium Normal 7.6-11.0 [facility] Comment on above: Result Comment: NEED REORDERED DUE TO MEDITECH ISSUE. Performed By: #### L 100.0500, L501.5200, L500.2500 ####[facility] [address] [place], [address] CL Normal 98-108 [facility] Comment on above: Result Comment: NEED REORDERED DUE TO MEDITECH ISSUE. Performed By: #### L 100.0500, L501.5200, L500.2500 ####[facility] [address] [place], [address] CO2 Normal 21.0-32.0 [facility] Comment on above: Result Comment: NEED REORDERED DUE TO MEDITECH ISSUE. Performed By: #### L 100.0500, L501.5200, L500.2500 ####[facility] [address] [place], [address] CREAT,SERUM Normal 0.70-1.20 [facility] Comment on above: Result Comment: NEED REORDERED DUE TO MEDITECH ISSUE. Performed By: #### L 100.0500, L501.5200, L500.2500 ####[facility] [address] [place], [address] eGFR Normal >60 [facility] Comment on above: Result Comment: NEED REORDERED DUE TO MEDITECH ISSUE. Performed By: #### L 100.0500, L501.5200, L500.2500 ####[facility] [address] [place], [address] GAP Normal 5-15 [facility] Comment on above: Result Comment: NEED REORDERED DUE TO MEDITECH ISSUE. Performed By: #### L 100.0500, L501.5200, L500.2500 ####[facility] [address] [place], [address] GLU Normal 70-99 [facility] Comment on above: Result Comment: NEED REORDERED DUE TO MEDITECH ISSUE. Performed By: #### L 100.0500, L501.5200, L500.2500 ####[facility] [address] [place], [address] Potassium Normal 3.3-5.1 [facility] Comment on above: Result Comment: NEED REORDERED DUE TO MEDITECH ISSUE. Performed By: #### L 100.0500, L501.5200, L500.2500 ####[facility] [address] [place], [address] Basic Metabolic Profile (BMP) Normal 133-145 [facility] Comment on above: Result Comment: NEED REORDERED DUE TO MEDITECH ISSUE. Performed By: #### L 100.0500, L501.5200, L500.2500 ####[facility] [address] [place], [address] CBC-Complete Blood Cnt No Di ffon 11-27-2024 Erythrocyte distribution width (RBC) [Ratio] 17.0 % High 11.6-14.6 [facility] Comment on above: Performed By: #### L 100.0500, L501.5200, L500.2500 ####[facility] [address] [place], [address] Hematocrit (Bld) [Volume fraction] 43.7 % Normal 40-54 [facility] Comment on above: Performed By: #### L 100.0500, L501.5200, L500.2500 ####[facility] [address] [place], [address] Hemoglobin (Bld) [Mass/Vol] 14.3 g/dL Normal 13.0-16.5 [facility] Comment on above: Performed By: #### L 100.0500, L501.5200, L500.2500 ####[facility] [address] [place], [address] MCH (RBC) [Entitic mass] 26.3 pg Low 27.0-32.0 [facility] Comment on above: Performed By: #### L 100.0500, L501.5200, L500.2500 ####[facility] [address] [place], [address] MCHC (RBC) [Mass/Vol] 32.7 g/dL Normal 32-36 [facility] Comment on above: Performed By: #### L 100.0500, L501.5200, L500.2500 ####[facility] [address] [place], [address] MCV (RBC) [Entitic vol] 80.5 fL Normal 80-94 [facility] Comment on above: Performed By: #### L 100.0500, L501.5200, L500.2500 ####[facility] [address] [place], [address] Platelet mean volume (Bld) [Entitic vol] 10.6 fL Normal 6.2-12.0 [facility] Comment on above: Performed By: #### L 100.0500, L501.5200, L500.2500 ####[facility] [address] [place], [address] Platelets (Bld) [#/Vol] 272 10*3/uL Normal 150-450 [facility] Comment on above: Performed By: #### L 100.0500, L501.5200, L500.2500 ####[facility] [address] [place], [address] RBC (Bld) [#/Vol] 5.43 10*6/uL Normal 4.6-6.2 [facility] Comment on above: Performed By: #### L 100.0500, L501.5200, L500.2500 ####[facility] [address] [place], [address] RDW SD 49.5 fl High 35.1-43.9 [facility] Comment on above: Performed By: #### L 100.0500, L501.5200, L500.2500 ####[facility] [address] [place], [address] WBC (Bld) [#/Vol] 11.5 10*3/uL High 4.4-11.0 [facility] Comment on above: Performed By: #### L 100.0500, L501.5200, L500.2500 ####[facility] [address] [place], [address] CNPSharlene 11-27-2024 CAESARN Telephone (FAMPWS) ----- FAISAL [id number]) 1945 M Date Time Provider Department 11/27/24 [facility], we recorded [...] Pure hypercholesterolemia [E78.00] Order(s):ADVANCE CARE PLAN DISCUSSION [[id number]] Order #: [id number]: 1 LIPID PANEL BASIC [SQLIPB] Order #: [id number] FUTURE ALBUMIN/CREATININE RATIO, URINE [SQUACR] Order #: [id number] FUTURE HEMOGLOBIN A1C [UUUWW7G] Order #: [id number] FUTURE COMPLETE BLOOD COUNT [SQCBC] Order #: [id number] FUTURE COMPREHENSIVE METABOLIC PANEL [SQCMP] Order #: [id number] FUTURE Prescriptions as of 11/27/2024 - finasteride [...] - Blood-Glucose Meter,Continuous (FREESTYLE MARIELLE 3 READER) [facility] Use to check blood sugar [...] a day before meals. Getting through [facility] - simvastatin (ZOCOR) 40 mg tablet Take 1 tablet by mouth daily at bedtime. - flecainide (TAMBOCOR) 150 mg tablet Take 1 tablet by mouth every 12 hours. Prescribed by outside cartography professor - insulin glargine (BASAGLAR KWIKPEN U-100 INSULIN) [...] hypertension [I10] (more content not included)... Normal [facility] Carbon dioxide, total [Moles /volume] in Central venous bloodOrdered By: Mathieu Virgen on 11-27-2024 CO2 [Moles/Vol] 18.9 mmol/L Low 21.0-32.0 [facility] Chloride assayOrdered By: Shannon Virgen on 11-27-2024 Chloride [Moles/Vol] 100 mmol/L 98-108 [facility] Erythrocyte distribution wid th ratioOrdered By: Mathieu Virgen on 11-27-2024 Erythrocyte distribution width (RBC) [Ratio] 17.0 % High 11.6-14.6 [facility] Erythrocyte distribution wid th standard deviationOrdered By: Mathieu Virgen on 11-27-2024 Erythrocyte distribution width (RBC) [Entitic vol] 49.5 fL High 35.1-43.9 [facility] Erythrocyte distribution width (RBC) [Ratio] 49.5 fl High 35.1-43.9 [facility] GFR/1.73 sq M.predicted ismael g non-blacks MDRD (S/P/Bld) [Vol rate/Area]Ordered By: Mathieu Virgen on 11-27-2024 Estimated GFR (MDRD) Non-Af Amer 62 >60 [facility] Comment on above: mL/min/1.73m2 CKD-EP I Creatinine Equation (2020) Glomerular filtration rate ( GFR) estimation/1.73 sq m using serum, plasma, or whole bOrdered By: Mathieu Virgen on 11-27-2024 GFR/1.73 sq M.predicted among non-blacks MDRD (S/P/Bld) [Vol rate/Area] 62 mL/min/{1.73_m2} >60 [facility] Comment on above: mL/min/1.73m2 CKD-EP I Creatinine Equation (2020) Hematocrit Auto (Bld) [Volum e fraction]Ordered By: Mathieu Virgen on 11-27-2024 Hematocrit (Bld) [Volume fraction] 43.7 % 40-54 [facility] Hemoglobin measurementOrdere d By: Mathieu Virgen on 11-27-2024 Hemoglobin (Bld) [Mass/Vol] 14.3 g/dL 13.0-16.5 [facility] MCV (mean corpuscular volume ) determinationOrdered By: Mathieu Virgen on 11-27-2024 MCV (RBC) [Entitic vol] 80.5 fL 80-94 [facility] Magnesiumon 11-27-2024 Magnesium [Mass/Vol] 2.3 mg/dL High 1.5-2.2 [facility] Comment on above: Performed By: #### L 501.5200, L500.2500 ####[facility] [address] [place], [address] Magnesium [Mass/Vol] 2.3 mg/dL High 1.5-2.2 [facility] Comment on above: Order Comment: NEED REORDERED DUE TO MEDITECH ISSUE. Result Comment: NEED REORDERED DUE TO MEDITECH ISSUE. Performed By: #### L 100.0500, L501.5200, L500.2500 ####[facility] [address] [place], [address] Magnesium (Unsp spec) [Mass/ Vol]Ordered By: Mathieu Virgen on 11-27-2024 Magnesium [Mass/Vol] 2.3 mg/dL High 1.5-2.2 [facility] Magnesium measurement (mass/ volume)Ordered By: Mathieu Virgen on 11-27-2024 Magnesium (Unsp spec) [Mass/Vol] 2.3 mg/dL High 1.5-2.2 [facility] Mean corpuscular hemoglobin (MCH) determinationOrdered By: Mathieu Virgen on 11-27-2024 MCH (RBC) [Entitic mass] 26.3 pg Low 27.0-32.0 [facility] Mean corpuscular hemoglobin concentration (MCHC) determinationOrdered By: Mathieu Virgen on 11-27-2024 MCHC (RBC) [Mass/Vol] 32.7 g/dL 32-36 [facility] Mean platelet volume determi nationOrdered By: Mathieu Virgen on 11-27-2024 Platelet mean volume (Bld) [Entitic vol] 10.6 fL 6.2-12.0 [facility] Platelet countOrdered By: Shannon Virgen on 11-27-2024 Platelets (Bld) [#/Vol] 272 10*3/uL 150-450 [facility] Potassium (Unsp spec) [Mass/ Vol]Ordered By: Mathieu Virgen on 11-27-2024 Potassium [Moles/Vol] 5.0 mmol/L 3.3-5.1 [facility] Comment on above: Hemolysis present, R esults could be affected. Potassium measurement (mass/ volume)Ordered By: Mathieu Virgen on 11-27-2024 Potassium (Unsp spec) [Mass/Vol] 5.0 mmol/L 3.3-5.1 [facility] Comment on above: Hemolysis present, R esults could be affected. RBC Auto (Bld) [#/Vol]Ordere d By: Mathieu Virgen on 11-27-2024 RBC (Bld) [#/Vol] 5.43 10*6/uL 4.6-6.2 [facility] Serum creatinine measurement (mass/volume)Ordered By: Mathieu Virgen on 11-27-2024 Creatinine [Mass/Vol] 1.19 mg/dL 0.70-1.20 [facility] Serum glucose measurement (m ass/volume)Ordered By: Mathieu Virgen on 11-27-2024 Glucose [Mass/Vol] 142 mg/dL High 70-99 [facility] Serum or plasma calcium nahomy urement (mass/volume)Ordered By: Mtahieu Virgen on 11-27-2024 Calcium [Mass/Vol] 9.3 mg/dL 7.6-11.0 [facility] Serum or plasma urea nitroge n measurement (mass/volume)Ordered By: Mathieu Virgen on 11-27-2024 Urea nitrogen [Mass/Vol] 22 mg/dL High 4-19 [facility] Sodium levelOrdered By: Keny kisha Marilynn on 11-27-2024 Sodium [Moles/Vol] 136 mmol/L 133-145 [facility] White blood cell (WBC) count Ordered By: Mathieu Virgen on 11-27-2024 WBC (Bld) [#/Vol] 11.5 10*3/uL High 4.4-11.0 [facility] CNPNon 11-26-2024 CNPN Telephone (PEPE) ----- FAISAL ALARCON ([id number]) 1945 Date Time Provider Department 11/26/24 MATHIEU [...] afternoon. Ordered by cardiology - Blood-Glucose Sensor (The .tv Corporation[employer] G7 SENSOR) sayra Apply new sensor every [...] - Blood-Glucose Meter,Continuous (FREESTYLE MARIELLE 3 READER) [facility] Use to check blood sugar [...] mouth every 12 hours. Prescribed by outside cartography professor - insulin glargine (BASAGLAR KWIKPEN U-100 INSULIN) [...] 06/09/2011 0 (more content not included)... Normal [facility] ----- FAISAL ALARCON ([id number]) 1945 M Date Time Provider Department 11/24/24 MATHIEU VIRGEN [facility] During your visit today, we recorded [...] afternoon. Ordered by cardiology - Blood-Glucose Sensor ([employer] G7 SENSOR) sayra Apply new sensor every [...] - Blood-Glucose Meter,Continuous (FREESTYLE MARIELLE 3 READER) [facility] Use to check blood sugar [...] mouth every 12 hours. Prescribed by outside cartography professor - insulin glargine (BASAGLAR KWIKPEN U-100 INSULIN) [...] breath) [R06.02] (more content not included)... Normal [facility]-20[facility] ----- FAISAL ALARCON ([id number]) 1945 M Date Time Provider Department 11/12/24 MATHIEU VIRGEN [facility] During your visit today, we recorded [...] - Blood-Glucose Meter,Continuous (FREESTYLE MARIELLE 3 READER) [facility] Use to check blood sugar at least four (4) times daily. Uses insulin - Blood-Glucose Sensor (FREESTYLE MARIELLE 3 PLUS SENSOR) sayra Apply new sensor every fifteen (15 (more content not included)... Normal [facility] Bedside Glucoseon 11-03-2024 FINGERSTICK GLU 132 mg/dL High 74-106 [facility] Comment on above: Result Comment: URSULA CHAMBERS OF PATIENT CARE PER NURSING PROTOCOL Performed By: #### L 501.080 ####[facility] [address] [place], [address] FINGERSTICK GLU 108 mg/dL High 74-106 [facility] Comment on above: Result Comment: URSULA GEMENT OF PATIENT CARE PER NURSING PROTOCOL Performed By: #### L 501.080 ####[facility] [address] [place], [place], [address] FINGERSTICK GLU 55 mg/dL Low 74-106 [facility] Comment on above: Result Comment: URSULA GEMENT OF PATIENT CARE PER NURSING PROTOCOL Performed By: #### L 501.080 ####[facility] [address] [place], [place], [address] Emergency Department Summary on 11-03-2024 Emergency Department Summary Normal [facility] deOrdered By: Qasim Senior on 11-03-2024 Bedside Glucose (Misc Panel) 132 mg/dL High 74-106 [facility] Comment on above: MANAGEMENT OF PATIEN T CARE PER NURSING PROTOCOL Glucose [Mass/Vol] 132 mg/dL High 74-106 [facility] Comment on above: MANAGEMENT OF PATIEN T CARE PER NURSING PROTOCOL [facility] 10-31-2024 [facility] FAISAL ALARCON ([id number]) 1945 M Date Time Provider Department 10/31/24 3[facility]00 [facility] During your visit today, we recorded the following information about you: Pulse Respiration Blood pressure Weight 78/minute 18/minute 114/68 124.3 kg Sukh Hall APRN.MANUFACTURING MAINTENANCE TECHNICIAN 10/31/2024 3:16 PM Signed Chief Complaint Patient [...] day. Blood-Glucose Meter,Continuous (FREESTYLE MARIELLE 3 READER) [facility] Use to check blood sugar [...] 1 safia (more content not included)... Normal [facility] CNPNon 10-31-2024 CNPN Telephone (FAMWS) ----- ESHAFAISAL Eugenie ([id number]) 1945 M Date Time Provider Department 10/31/24 MATHIEU VIRGEN [facility] During your visit today, we recorded the following information about you: Jackelin Tinajero RN 10/31/2024 2:42 PM Signed Call placed to patient and spoke to daughter (Nisha). Nisha reports that patient has on-going dizziness/light-headednes s and has been to the ER multiple times for syncopal episodes. Patient was seen 09/23/2024 for ER follow up for CP and dizziness. Nihsa reports that symptoms are not any worse [...] waiting for a new C-pap machine from [facility]. (Nisha is calling them to ask [...] - Blood-Glucose Meter,Continuous (FREESTYLE MARIELLE 3 READER) [facility] Use to check blood sugar [...] a day before meals. Getting through [facility] - dilTIAZem CD (CARDIZEM CD, CARTIA XT) 120 mg 24 hr capsule Take 1 capsule by mouth once daily. - simvastatin (ZOCOR) 40 mg tablet Take 1 tablet by mouth daily at bedtime. - flecainide (TAMBOCOR) 150 mg tablet Take 1 tablet by mouth every 12 hours. Prescribed by outside cartography professor - insulin glargine (BASAGLAR KWIKPEN U-100 INSULIN) [...] microalbuminuria *04/18 (more content not included)... Normal [facility] Ema 10-16-2024 [facility] Telephone (FAMPWS) ----- FAISAL ALARCON ([id number]) 1945 M Date Time Provider Department 10/16/24 [...] get one. Please phone Farida with reply: [phone] Mathieu Virgen MD 10/16/2024 10:35 AM Signed Do we have anything like that available? Might need to buy one if not Lulu Walls MA 10/16/2024 11:55 AM Signed We do not have samples. Spoke with daughter Farida and informed her of this. She is requesting a Rx for the Dexcom sensors (G7) to the [facility] in [place] while waiting for the company to ship [...] - Blood-Glucose Meter,Continuous (FREESTYLE MARIELLE 3 READER) [facility] Use to check blood sugar [...] day before meals. Getting through [facility] - dilTIAZem CD (CARDIZEM CD, CARTIA XT) 120 mg 24 hr capsule Take 1 capsule by mouth once daily. - simvastatin (ZOCOR) 40 mg tablet Take 1 tablet by mouth daily at bedtime. - flecainide (TAMBOCOR) 150 mg tablet Take 1 tablet by mouth every 12 hours. Prescribed by outside cartography professor - insulin glargine (BASAGLAR KWIKPEN U-100 INSULIN) [...] 06/06/2023 Tu (more content not included)... Normal [facility] Basic Metabolic Profile (BMP )on 10-07-2024 BUN/CRE 26.7 RATIO High 07-06 [facility] Comment on above: Performed By: #### L 500.2500 ####[facility] [address] [place], [place], [id number]) CA,Total 9.6 mg/dL Normal 8.5-10.1 [facility] Comment on above: Performed By: #### L 500.2500 ####[facility] [address] [place], [address] Chloride [Moles/Vol] 104 mmol/L Normal 98-107 [facility] Comment on above: Performed By: #### L 500.2500 ####[facility] [address] [place], [address] CO2 [Moles/Vol] 26.0 mmol/L Normal 21.0-32.0 [facility] Comment on above: Performed By: #### L 500.2500 ####[facility] [address] [place], [address] Creatinine [Mass/Vol] 1.20 mg/dL Normal 0.70-1.30 [facility] Comment on above: Result Comment: The validity of the calculated GFR GFRAA in patients over70 years has not been determined. Clinical correlation isessential. Performed By: #### L 500.2500 ####[facility] [address] [place], [address] EST GFR - AA 75 mL/min Normal >60 [facility] Comment on above: Result Comment: Afri can Faroese GFR Calc Performed By: #### L 500.2500 ####[facility] [address] [place], [address] GAP 6 Normal 5-15 [facility] Comment on above: Performed By: #### L 500.2500 ####[facility] [address] [place], [address] GFR/1.73 sq M.predicted among non-blacks MDRD (S/P/Bld) [Vol rate/Area] 62 mL/min/{1.73_m2} Normal >60 [facility] Comment on above: Result Comment: Non- GFR Calc Performed By: #### L 500.2500 ####[facility] [address] [place], [address] Glucose [Mass/Vol] 142 mg/dL High 74-106 [facility] Comment on above: Result Comment: Fast ing Glucose result greater than or equal to 126 mg/dLsuggests DIABETES MELLITUS per A.D.A. criteria. Performed By: #### L 500.2500 ####[facility] [address] [place], [address] Potassium [Moles/Vol] 4.3 mmol/L Normal 3.5-5.1 [facility] Comment on above: Performed By: #### L 500.2500 ####[facility] [address] [place], [address] Sodium [Moles/Vol] 136 mmol/L Normal 136-145 [facility] Comment on above: Performed By: #### L 500.2500 ####[facility] [address] [place], [address] Urea nitrogen [Mass/Vol] 32 mg/dL High 7-18 [facility] Comment on above: Performed By: #### L 500.2500 ####[facility] [address] [place], [place], [id number] Blood urea nitrogen (BUN)/cr eatinine ratioOrdered By: Tierra Gilbert on 10-07-2024 Urea nitrogen/Creatinine [Mass ratio] 26.7 mg/mg High 10-20 [facility] Carbon dioxide measurementOr dered By: Tierra Gilbert on 10-07-2024 CO2 [Moles/Vol] 26.0 mmol/L 21.0-32.0 [facility] Chloride measurementOrdered By: Tierra Gilbert on 10-07-2024 Chloride [Moles/Vol] 104 mmol/L 98-107 [facility] Estimated glomerular filtrat ion rate (GFR) AmericanOrdered By: Tierra Gilbert on 10-07-2024 Estimated GFR (MDRD) Amer 75 mL/min >60 [facility] Comment on above: GFR Calc Glomerular filtration rate ( GFR) estimationOrdered By: Tierra Gilbert on 10-07-2024 Estimated GFR (MDRD) Non-Af Amer 62 mL/min >60 [facility] Comment on above: Non- GFR Calc GFR/1.73 sq M.predicted among non-blacks MDRD (S/P/Bld) [Vol rate/Area] 62 mL/min/{1.73_m2} >60 [facility] Comment on above: Non- GFR Calc Glucose measurementOrdered B y: Tierra Gilbert on 10-07-2024 Glucose [Mass/Vol] 142 mg/dL High 74-106 [facility] Comment on above: Fasting Glucose resu lt greater than or equal to 126 mg/dL suggests DIABETES MELLITUS per A.D.A. criteria. Potassium measurementOrdered By: Tierra Gilbert on 10-07-2024 Potassium [Moles/Vol] 4.3 mmol/L 3.5-5.1 [facility] Serum anion gap measurementO rdered By: Tierra Gilbert on 10-07-2024 Anion gap [Moles/Vol] 6 mmol/L 5-15 [facility] Serum or plasma calcium nahomy urement (mass/volume)Ordered By: Tierra Gilbert on 10-07-2024 Calcium [Mass/Vol] 9.6 mg/dL 8.5-10.1 [facility] Serum or plasma creatinine m easurement (mass/volume)Ordered By: Tierra Gilbert on 10-07-2024 Creatinine [Mass/Vol] 1.20 mg/dL 0.70-1.30 [facility] Comment on above: The validity of the calculated GFR & GFRAA in patients over 70 years has not been determined. Clinical correlation is essential. Serum or plasma urea nitroge n measurement (mass/volume)Ordered By: Tierra Gilbert on 10-07-2024 Urea nitrogen [Mass/Vol] 32 mg/dL High 7-18 [facility] Sodium levelOrdered By: Misbah Gilbert on 10-07-2024 Sodium [Moles/Vol] 136 mmol/L 136-145 [facility] CNOVon 09-23-2024 CNOV Office Visit (FAMPWS ) ----- FAISAL ALARCON ([id number]) 1945 M Date Time Provider Department 09/23/24 2:40 PM DENISHA SHEPARD FAMPWS During your visit today, we recorded the following information about you: Pulse Respiration Blood pressure Weight 79/minute 16/minute 118/68 127.9 kg Denisha Shepard APRN.CNP 09/23/2024 6:18 PM Signed This is a 79 year old male who presents today with: Patient presents with: ER F/U: [facility] ER 09/20/24 dx:CP HISTORY OF PRESENT ILLNESS: Faisal Alarcon is a 79 year old male. Patient presents with: ER F/U: [facility] ER 09/20/24 dx:CP Patient presents today for emergency room follow-up. He went to the emergency room on 09/20/2024 with complaints of chest discomfort. He had been given nitroglycerin by EMS that did improve his pain. He had negative cardiac enzymes and stable lab work. There was no STEMI. The emergency room did consult patient's cartography professor, and it was recommended to start patient [...] day. Blood-Glucose Meter,Continuous (FREESTYLE MARIELLE 3 READER) [facility] Use to check blood sugar [...] mouth every 12 hours. Prescribed by outside cartography professor insulin glargine (BASAGLAR KWIKPEN U-100 INSULIN) 100 [...] Insulin Syri (more content not included)... Normal [facility] Cardiology Visit Reporton Cardiology Visit Report Normal [facility] CBC W/Diff, Automatedon PATH REV Reviewed Normal [facility] Comment on above: Result Comment: Leuk ocytosis.Clinical correlation necessary.Callum Arteaga M.D. 09/22/24 AMENDED REPORT 09/22/24 1321 PATH REV previously reported as: January Performed By: #### L 100.0100, L500.2500, L501.5425 ####[facility] [address] [place], [address] [facility] 09-22-2024 [facility] Telephone (COLIN) ----- FAISAL ALARCON ([id number]) 1945 M Date Time Provider Department 09/22/24 DENISHA SHEPARD During your visit today, we recorded the following information about you: Liyah Monroy, RN 09/22/2024 1:03 PM Signed Pts daughter called in and reports her father was in [facility] ER 09/20/24. She reports Pt was having chest pain and that is why he went to the ER. Pts daughter states they didn't find anything wrong with him, everything was the same as before. Pt scheduled with Denisha Shepard HARBOR DEPARTMENT MANAGER 09/23/24 at 240 pm. She reports he father has been feeling lightheaded and dizzy, and she thinks it's because on 09/13/[address] Ponce double his dose of [...] Date Reviewed: 07/29/2024 Reviewed by: Julianna Hood APRN.MANUFACTURING MAINTENANCE TECHNICIAN - Fully Assessed Reason for Visit: Patient [...] - Blood-Glucose Meter,Continuous (FREESTYLE MARIELLE 3 READER) [facility] Use to check blood sugar [...] day before meals. Getting through [facility] - dilTIAZem CD (CARDIZEM CD, CARTIA XT) [...] mouth every 12 hours. Prescribed by outside cartography professor - insulin glargine (BASAGLAR KWIKPEN U-100 INSULIN) [...] condition wi* (more content not included)... Normal [facility] 12 Lead EKGon 09-20-2024 12 Lead EKG Normal [facility] 12 Lead EKG Normal [facility] Absolute neutrophil countOrd ered By: Reji Smith on 09-20-2024 Neutrophils (Bld) [#/Vol] 7.5 10*3/uL 2.0-7.7 [facility] Basic Metabolic Profile (BMP )on 09-20-2024 BUN/CRE 21.4 RATIO High 10-20 [facility] Comment on above: Order Comment: 1Y Performed By: #### L 100.0100, L500.2500, L501.5425 ####[facility] [address] [place], [address] CA,Total 9.5 mg/dL Normal 8.5-10.1 [facility] Comment on above: Order Comment: 1Y Performed By: #### L 100.0100, L500.2500, L501.5425 ####[facility] [address] [place], [address] Chloride [Moles/Vol] 102 mmol/L Normal 98-107 [facility] Comment on above: Order Comment: 1Y Performed By: #### L 100.0100, L500.2500, L501.5425 ####[facility] [address] [place], [address] CO2 [Moles/Vol] 27.0 mmol/L Normal 21.0-32.0 [facility] Comment on above: Order Comment: 1Y Performed By: #### L 100.0100, L500.2500, L501.5425 ####[facility] [address] [place], [address] Creatinine [Mass/Vol] 1.26 mg/dL Normal 0.70-1.30 [facility] Comment on above: Order Comment: 1Y Result Comment: The validity of the calculated GFR GFRAA in patients over70 years has not been determined. Clinical correlation isessential. Performed By: #### L 100.0100, L500.2500, L501.5425 ####[facility] [address] [place], [address] ECRCL 66.12 ml/min Normal [facility] Comment on above: Order Comment: 1Y Performed By: #### L 100.0100, L500.2500, L501.5425 ####[facility] [address] [place], [address] EST GFR - AA 71 mL/min Normal >60 [facility] Comment on above: Order Comment: 1Y Result Comment: Afri can Faroese GFR Calc Performed By: #### L 100.0100, L500.2500, L501.5425 ####[facility] [address] [place], [address] GAP 8 Normal 5-15 [facility] Comment on above: Order Comment: 1Y Performed By: #### L 100.0100, L500.2500, L501.5425 ####[facility] [address] [place], [address] GFR/1.73 sq M.predicted among non-blacks MDRD (S/P/Bld) [Vol rate/Area] 59 mL/min/{1.73_m2} Low >60 [facility] Comment on above: Order Comment: 1Y Result Comment: Non- GFR Calc Performed By: #### L 100.0100, L500.2500, L501.5425 ####[facility] [address] [place], [address] Glucose [Mass/Vol] 147 mg/dL High 74-106 [facility] Comment on above: Order Comment: 1Y Result Comment: Fast ing Glucose result greater than or equal to 126 mg/dLsuggests DIABETES MELLITUS per A.D.A. criteria. Performed By: #### L 100.0100, L500.2500, L501.5425 ####[facility] [address] [place], [address] Potassium [Moles/Vol] 3.8 mmol/L Normal 3.5-5.1 [facility] Comment on above: Order Comment: 1Y Performed By: #### L 100.0100, L500.2500, L501.5425 ####[facility] [address] [place], [address] Sodium [Moles/Vol] 137 mmol/L Normal 136-145 [facility] Comment on above: Order Comment: 1Y Performed By: #### L 100.0100, L500.2500, L501.5425 ####[facility] [address] [place], [address] Urea nitrogen [Mass/Vol] 27 mg/dL High 7-18 [facility] Comment on above: Order Comment: 1Y Performed By: #### L 100.0100, L500.2500, L501.5425 ####[facility] [address] [place], [address] Basophil percentageOrdered B y: Reji Smith on 09-20-2024 Basophils/100 WBC (Bld) 0.4 % 0-1 [facility] Blood urea nitrogen (BUN)/cr eatinine ratioOrdered By: Reji Smith on 09-20-2024 Urea nitrogen/Creatinine [Mass ratio] 21.4 mg/mg High 10-20 [facility] Carbon dioxide measurementOr dered By: Reji Smith on 09-20-2024 CO2 [Moles/Vol] 27.0 mmol/L 21.0-32.0 [facility] Chest 1 View (Portable)on Chest 1 View (Portable) Normal [facility] Chloride measurementOrdered By: Reji Smith on 09-20-2024 Chloride [Moles/Vol] 102 mmol/L 98-107 [facility] Emergency Department Summary on 09-20-2024 Emergency Department Summary Normal [facility] Eosinophil percentageOrdered By: Reji Smith on 09-20-2024 Eosinophils/100 WBC (Bld) 2.9 % 0-5 [facility] Erythrocyte distribution wid th ratioOrdered By: Reji Smith on 09-20-2024 Erythrocyte distribution width (RBC) [Ratio] 15.0 % High 11.6-14.6 [facility] Erythrocyte distribution wid th standard deviationOrdered By: Reji Smith on 09-20-2024 Erythrocyte distribution width (RBC) [Entitic vol] 43.9 fL 35.1-43.9 [facility] Estimated glomerular filtrat ion rate (GFR) AmericanOrdered By: Reji Smith on 09-20-2024 Estimated GFR (MDRD) Amer 71 mL/min >60 [facility] Comment on above: GFR Calc Estimation of creatinine ashley aranceOrdered By: Reji Smith on 09-20-2024 Estimated Creatinine Clearance Calc 66.12 ml/min [facility] Glomerular filtration rate ( GFR) estimationOrdered By: Reji Smith on 09-20-2024 Estimated GFR (MDRD) Non-Af Amer 59 mL/min Low >60 [facility] Comment on above: Non- GFR Calc Glucose measurementOrdered B y: Reji Smith on 09-20-2024 Glucose [Mass/Vol] 147 mg/dL High 74-106 [facility] Comment on above: Fasting Glucose resu lt greater than or equal to 126 mg/dL suggests DIABETES MELLITUS per A.D.A. criteria. Hematocrit Auto (Bld) [Volum e fraction]Ordered By: Reji Smith on 09-20-2024 Hematocrit (Bld) [Volume fraction] 43.8 % 40-54 [facility] Hemoglobin measurementOrdere d By: Reji Smith on 09-20-2024 Hemoglobin (Bld) [Mass/Vol] 13.9 g/dL 13.0-16.5 [facility] Immature granulocytes/100 WB C Auto (Bld)Ordered By: Reji Smith on 09-20-2024 Immature granulocytes/100 WBC (Bld) 0.400 % 0.0-0.9 [facility] Comment on above: IG% - Immature Granu locytes (promyelocytes, myelocytes and metamyelocytes) > 1% indicates that a LEFT SHIFT is Present. L501.4020on 09-20-2024 TROPONIN-I HS 8 pg/mL Normal 3.0-78.0 [facility] Comment on above: Result Comment: Hannah irwin Note: New Test Units and Gender Specific Reference Ranges. For more information see Policy Stat Procedure [place] High Sensitivity Troponin (TNIH) and attachments. Performed By: #### L 501.4020 ####[facility] [address] [facility] [place], [address] L501.5425on 09-20-2024 TROPONIN-I HS 10 pg/mL Normal 3.0-78.0 [facility] Comment on above: Order Comment: 1Y Result Comment: Plerodríguez se Note: New Test Units and Gender Specific Reference Ranges. For more information see Policy Stat Procedure [place] High Sensitivity Troponin (TNIH) and attachments. Performed By: #### L 100.0100, L500.2500, L501.5425 ####[facility] [address] [place], [address] Lymphocytes Auto (Unsp spec) [#/Vol]Ordered By: Reji Smith on 09-20-2024 Lymphocytes (Bld) [#/Vol] 1.85 10*3/uL 0.83-4.5 1 [facility] Lymphocytes/100 WBC Auto (Un sp spec)Ordered By: Reji Smith on 09-20-2024 Lymphocytes/100 WBC (Bld) 16.3 % Low 19-41 [facility] MCV (mean corpuscular volume ) determinationOrdered By: Reji Smith on 09-20-2024 MCV (RBC) [Entitic vol] 80.4 fL 80-94 [facility] Manual differential comment Rey (Bld) [Interp]Ordered By: Reji Smith on 09-20-2024 Differential Comment SCANNED [facility] Comment on above: MONOCYTOSIS NOTED Mean corpuscular hemoglobin (MCH) determinationOrdered By: Reji Smith on 09-20-2024 MCH (RBC) [Entitic mass] 25.5 pg Low 27.0-32.0 [facility] Mean corpuscular hemoglobin concentration (MCHC) determinationOrdered By: Reji Smith on 09-20-2024 MCHC (RBC) [Mass/Vol] 31.7 g/dL Low 32-36 [facility] Mean platelet volume determi nationOrdered By: Reji Smith on 09-20-2024 Platelet mean volume (Bld) [Entitic vol] 11.3 fL 6.2-12.0 [facility] Monocyte percentageOrdered B y: Reji Smith on 09-20-2024 Monocytes/100 WBC (Bld) 14.0 % High 0-10 [facility] Neutrophil percentageOrdered By: Reji Smith on 09-20-2024 Neutrophils/100 WBC (Bld) 66.0 % 47-70 [facility] Nucleated red blood cell per centageOrdered By: Reji Smith on 09-20-2024 Nucleated RBC/100 WBC (Bld) [Ratio] 0 % 0-5 [facility] Pathologist review Rey (Unsp spec) [Interp]Ordered By: Reji Smith on 09-20-2024 Differential Pathologist's Review Reviewed [facility] Comment on above: Previous reported re sult: Tamara bernard Edited by: IRON on 09/22/24:1321Leukocytosis.Clinical correlation necessary.Callum Arteaga M.D. 09/22/24 AMENDED REPORT 09/22/24 1321 PATH REV previously reported as: Tamara bernard Platelet countOrdered By: Kevin Smith on 09-20-2024 Platelets (Bld) [#/Vol] 284 10*3/uL 150-450 [facility] Potassium measurementOrdered By: Reji Smith on 09-20-2024 Potassium [Moles/Vol] 3.8 mmol/L 3.5-5.1 [facility] RBC Auto (Bld) [#/Vol]Ordere d By: Reji Smith on 09-20-2024 RBC (Bld) [#/Vol] 5.45 10*6/uL 4.6-6.2 [facility] Serum anion gap measurementO rdered By: Reji Smith on 09-20-2024 Anion gap [Moles/Vol] 8 mmol/L 5-15 [facility] Serum or plasma calcium nahomy urement (mass/volume)Ordered By: Reji Smith on 09-20-2024 Calcium [Mass/Vol] 9.5 mg/dL 8.5-10.1 [facility] Serum or plasma creatinine m easurement (mass/volume)Ordered By: Reji Smith on 09-20-2024 Creatinine [Mass/Vol] 1.26 mg/dL 0.70-1.30 [facility] Comment on above: The validity of the calculated GFR & GFRAA in patients over 70 years has not been determined. Clinical correlation is essential. Serum or plasma urea nitroge n measurement (mass/volume)Ordered By: Reji Smith on 09-20-2024 Urea nitrogen [Mass/Vol] 27 mg/dL High 7-18 [facility] Sodium levelOrdered By: Reji Smith on 09-20-2024 Sodium [Moles/Vol] 137 mmol/L 136-145 [facility] Troponin IOrdered By: Reji sawyer on 09-20-2024 Troponin I High Sensitivity 8 pg/mL 3.0-78.0 [facility] Comment on above: Please Note: New Carmen t Units and Gender Specific Reference Ranges. For more information see Policy Stat Procedure [place] High Sensitivity Troponin (TNIH) and attachments. White blood cell (WBC) count Ordered By: Reji Smith on 09-20-2024 WBC (Bld) [#/Vol] 11.4 10*3/uL High 4.4-11.0 [facility] Cardiology Visit Reporton Cardiology Visit Report Normal [facility] Urine Cultureon 09-02-2024 URC Mixed Gram Positive Organisms Lykens Count 80,000-100,000 MIXC Mixed contaminants. Submit a new specimen if indicated. Normal [facility] Comment on above: Performed By: #### M 100.2200 ####[facility] [address] [place], [address] 12 Lead EKGon 09-01-2024 12 Lead EKG Normal [facility] Abdomen/Pelvis W IV Cont ONL Yon 09-01-2024 Abdomen/Pelvis W IV Cont ONLY Normal [facility] Absolute neutrophil countOrd ered By: Mani Esquivel on 09-01-2024 Neutrophils (Bld) [#/Vol] 7.5 10*3/uL 2.0-7.7 [facility] Basic Metabolic Profile (BMP )on 09-01-2024 BUN/CRE 28.1 RATIO High 10-20 [facility] Comment on above: Order Comment: 'TROP ' Serial specimen #1, #2 or #3: 1 Performed By: #### L 100.0100, L500.2500, L501.4020, L501.5200 ####[facility] [address] [place], [address] CA,Total 9.3 mg/dL Normal 8.5-10.1 [facility] Comment on above: Order Comment: 'TROP ' Serial specimen #1, #2 or #3: 1 Performed By: #### L 100.0100, L500.2500, L501.4020, L501.5200 ####[facility] [address] [place], [address] Chloride [Moles/Vol] 106 mmol/L Normal 98-107 [facility] Comment on above: Order Comment: 'TROP ' Serial specimen #1, #2 or #3: 1 Performed By: #### L 100.0100, L500.2500, L501.4020, L501.5200 ####[facility] [address] [place], [address] CO2 [Moles/Vol] 24.0 mmol/L Normal 21.0-32.0 [facility] Comment on above: Order Comment: 'TROP ' Serial specimen #1, #2 or #3: 1 Performed By: #### L 100.0100, L500.2500, L501.4020, L501.5200 ####[facility] [address] [place], [address] Creatinine [Mass/Vol] 1.14 mg/dL Normal 0.70-1.30 [facility] Comment on above: Order Comment: 'TROP ' Serial specimen #1, #2 or #3: 1 Result Comment: The validity of the calculated GFR GFRAA in patients over70 years has not been determined. Clinical correlation isessential. Performed By: #### L 100.0100, L500.2500, L501.4020, L501.5200 ####[facility] [address] [place], [address] ECRCL 73.93 ml/min Normal [facility] Comment on above: Order Comment: 'TROP ' Serial specimen #1, #2 or #3: 1 Performed By: #### L 100.0100, L500.2500, L501.4020, L501.5200 ####[facility] [address] [place], [address] EST GFR - AA 79 mL/min Normal >60 [facility] Comment on above: Order Comment: 'TROP ' Serial specimen #1, #2 or #3: 1 Result Comment: Afri can Faroese GFR Calc Performed By: #### L 100.0100, L500.2500, L501.4020, L501.5200 ####[facility] [address] [place], [address] GAP 7 Normal 5-15 [facility] Comment on above: Order Comment: 'TROP ' Serial specimen #1, #2 or #3: 1 Performed By: #### L 100.0100, L500.2500, L501.4020, L501.5200 ####[facility] [address] [place], [address] GFR/1.73 sq M.predicted among non-blacks MDRD (S/P/Bld) [Vol rate/Area] 66 mL/min/{1.73_m2} Normal >60 [facility] Comment on above: Order Comment: 'TROP ' Serial specimen #1, #2 or #3: 1 Result Comment: Non- GFR Calc Performed By: #### L 100.0100, L500.2500, L501.4020, L501.5200 ####[facility] [address] [place], [address] Glucose [Mass/Vol] 98 mg/dL Normal 74-106 [facility] Comment on above: Order Comment: 'TROP ' Serial specimen #1, #2 or #3: 1 Performed By: #### L 100.0100, L500.2500, L501.4020, L501.5200 ####[facility] [address] [place], [address] Potassium [Moles/Vol] 3.6 mmol/L Normal 3.5-5.1 [facility] Comment on above: Order Comment: 'TROP ' Serial specimen #1, #2 or #3: 1 Performed By: #### L 100.0100, L500.2500, L501.4020, L501.5200 ####[facility] [address] [place], [address] Sodium [Moles/Vol] 138 mmol/L Normal 136-145 [facility] Comment on above: Order Comment: 'TROP ' Serial specimen #1, #2 or #3: 1 Performed By: #### L 100.0100, L500.2500, L501.4020, L501.5200 ####[facility] [address] [place], [address] Urea nitrogen [Mass/Vol] 32 mg/dL High 7-18 [facility] Comment on above: Order Comment: 'TROP ' Serial specimen #1, #2 or #3: 1 Performed By: #### L 100.0100, L500.2500, L501.4020, L501.5200 ####[facility] [address] [place], [address] Basophil percentageOrdered B y: Mani Esquivel on 09-01-2024 Basophils/100 WBC (Bld) 0.4 % 0-1 [facility] Bilirubin Test strip Ql (U)O rdered By: Mani Esquivel on 09-01-2024 Bilirubin Ql (U) Negative Negative [facility] Blood urea nitrogen (BUN)/cr eatinine ratioOrdered By: Mani Esquivel on 09-01-2024 Urea nitrogen/Creatinine [Mass ratio] 28.1 mg/mg High 07-06 [facility] CBC W/Diff, Automatedon 08-17 Absolute Lymph 2.06 X10 3/uL Normal 0.83-4.51 [facility] Comment on above: Performed By: #### L 100.0100, L500.2500, L501.4020, L501.5200 ####[facility] [address] [place], [address] Absolute Neut 7.5 X10 3/uL Normal 2.0-7.7 [facility] Comment on above: Performed By: #### L 100.0100, L500.2500, L501.4020, L501.5200 ####[facility] [address] [place], [address] Basophils/100 WBC (Bld) 0.4 % Normal 0-1 [facility] Comment on above: Performed By: #### L 100.0100, L500.2500, L501.4020, L501.5200 ####[facility] [address] [place], [address] Eosinophils/100 WBC (Bld) 2.9 % Normal 0-5 [facility] Comment on above: Performed By: #### L 100.0100, L500.2500, L501.4020, L501.5200 ####[facility] [address] [place], [address] Erythrocyte distribution width (RBC) [Ratio] 15.3 % High 11.6-14.6 [facility] Comment on above: Performed By: #### L 100.0100, L500.2500, L501.4020, L501.5200 ####[facility] [address] [place], [address] Hematocrit (Bld) [Volume fraction] 41.4 % Normal 40-54 [facility] Comment on above: Performed By: #### L 100.0100, L500.2500, L501.4020, L501.5200 ####[facility] [address] [place], [address] Hemoglobin (Bld) [Mass/Vol] 13.1 g/dL Normal 13.0-16.5 [facility] Comment on above: Performed By: #### L 100.0100, L500.2500, L501.4020, L501.5200 ####[facility] [address] [place], [address] IG% 0.300 Normal 0.0-0.9 [facility] Comment on above: Result Comment: IG% - Immature Granulocytes (promyelocytes, myelocytes andmetamyelocytes) > 1% indicates that a LEFT SHIFT is Present. Performed By: #### L 100.0100, L500.2500, L501.4020, L501.5200 ####[facility] [address] [place], [address] Lymphocytes/100 WBC (Bld) 18.2 % Low 19-41 [facility] Comment on above: Performed By: #### L 100.0100, L500.2500, L501.4020, L501.5200 ####[facility] [address] [place], [address] MCH (RBC) [Entitic mass] 26.2 pg Low 27.0-32.0 [facility] Comment on above: Performed By: #### L 100.0100, L500.2500, L501.4020, L501.5200 ####[facility] [address] [place], [address] MCHC (RBC) [Mass/Vol] 31.6 g/dL Low 32-36 [facility] Comment on above: Performed By: #### L 100.0100, L500.2500, L501.4020, L501.5200 ####[facility] [address] [place], [address] MCV (RBC) [Entitic vol] 82.8 fL Normal 80-94 [facility] Comment on above: Performed By: #### L 100.0100, L500.2500, L501.4020, L501.5200 ####[facility] [address] [place], [address] Monocytes/100 WBC (Bld) 11.8 % High 0-10 [facility] Comment on above: Performed By: #### L 100.0100, L500.2500, L501.4020, L501.5200 ####[facility] [address] [place], [address] Neutrophils/100 WBC (Bld) 66.4 % Normal 47-70 [facility] Comment on above: Performed By: #### L 100.0100, L500.2500, L501.4020, L501.5200 ####[facility] [address] [place], [address] Nucleated RBC (Bld) [#/Vol] 0 10*3/uL Normal 0-5 [facility] Comment on above: Performed By: #### L 100.0100, L500.2500, L501.4020, L501.5200 ####[facility] [address] [place], [address] Platelet mean volume (Bld) [Entitic vol] 11.2 fL Normal 6.2-12.0 [facility] Comment on above: Performed By: #### L 100.0100, L500.2500, L501.4020, L501.5200 ####[facility] [address] [place], [address] Platelets (Bld) [#/Vol] 301 10*3/uL Normal 150-450 [facility] Comment on above: Performed By: #### L 100.0100, L500.2500, L501.4020, L501.5200 ####[facility] [address] [place], [address] RBC (Bld) [#/Vol] 5.00 10*6/uL Normal 4.6-6.2 [facility] Comment on above: Performed By: #### L 100.0100, L500.2500, L501.4020, L501.5200 ####[facility] [address] [place], [address] RDW SD 46.0 fl High 35.1-43.9 [facility] Comment on above: Performed By: #### L 100.0100, L500.2500, L501.4020, L501.5200 ####[facility] [address] [place], [address] WBC (Bld) [#/Vol] 11.3 10*3/uL High 4.4-11.0 [facility] Comment on above: Performed By: #### L 100.0100, L500.2500, L501.4020, L501.5200 ####[facility] [address] [place], [address] Carbon dioxide measurementOr dered By: Mani Esquivel on 09-01-2024 CO2 [Moles/Vol] 24.0 mmol/L 21.0-32.0 [facility] Chest PA and Lateralon 09-01 Chest PA and Lateral Normal [facility] Chloride measurementOrdered By: Mani Esquivel on 09-01-2024 Chloride [Moles/Vol] 106 mmol/L 98-107 [facility] Emergency Department Summary on 09-01-2024 Emergency Department Summary Normal [facility] Eosinophil percentageOrdered By: Mani Esquivel on 09-01-2024 Eosinophils/100 WBC (Bld) 2.9 % 0-5 [facility] Epithelial cells.squamous LM Ql (Urine sed)Ordered By: Mani Esquivel on 09-01-2024 Epithelial cells.squamous LM.HPF (Urine sed) [#/Area] 5 /[HPF] 0-5 [facility] Erythrocyte distribution wid th ratioOrdered By: Mani Esquivel on 09-01-2024 Erythrocyte distribution width (RBC) [Ratio] 15.3 % High 11.6-14.6 [facility] Erythrocyte distribution wid th standard deviationOrdered By: Mani Esquivel on 09-01-2024 Erythrocyte distribution width (RBC) [Entitic vol] 46.0 fL High 35.1-43.9 [facility] Estimated glomerular filtrat ion rate (GFR) AmericanOrdered By: Mani Esquivel on 09-01-2024 Estimated GFR (MDRD) Amer 79 mL/min >60 [facility] Comment on above: GFR Calc Estimation of creatinine ashley aranceOrdered By: Mani Esquivel on 09-01-2024 Estimated Creatinine Clearance Calc 73.93 ml/min [facility] Glomerular filtration rate ( GFR) estimationOrdered By: Mani Esquivel on 09-01-2024 Estimated GFR (MDRD) Non-Af Amer 66 mL/min >60 [facility] Comment on above: Non- GFR Calc Glucose Ql (U)Ordered By: Brigitte Esquivel on 09-01-2024 Glucose (U) [Mass/Vol] 1000 mg/dL High Normal [facility] Glucose measurementOrdered B y: Mani Esquivel on 09-01-2024 Glucose [Mass/Vol] 98 mg/dL 74-106 [facility] Hematocrit Auto (Bld) [Volum e fraction]Ordered By: Mani Esquivel on 09-01-2024 Hematocrit (Bld) [Volume fraction] 41.4 % 40-54 [facility] Hemoglobin measurementOrdere d By: Mani Esquivel on 09-01-2024 Hemoglobin (Bld) [Mass/Vol] 13.1 g/dL 13.0-16.5 [facility] Immature granulocytes/100 WB C Auto (Bld)Ordered By: Mani Esquivel on 09-01-2024 Immature granulocytes/100 WBC (Bld) 0.300 % 0.0-0.9 [facility] Comment on above: IG% - Immature Granu locytes (promyelocytes, myelocytes and metamyelocytes) > 1% indicates that a LEFT SHIFT is Present. Ketones Test strip Ql (U)Ord ered By: Mani Esquivel on 09-01-2024 Ketones Ql (U) Negative Negative [facility] L501.4020on 09-01-2024 TROPONIN-I HS 11 pg/mL Normal 3.0-78.0 [facility] Comment on above: Order Comment: 'TROP ' Serial specimen #1, #2 or #3: 2 Result Comment: Plea se Note: New Test Units and Gender Specific Reference Ranges. For more information see Policy Stat Procedure [place] High Sensitivity Troponin (TNIH) and attachments. Performed By: #### L 501.4020 ####[facility] [address] [place], [address] TROPONIN-I HS 10 pg/mL Normal 3.0-78.0 [facility] Comment on above: Order Comment: 'TROP ' Serial specimen #1, #2 or #3: 1 Result Comment: Plea se Note: New Test Units and Gender Specific Reference Ranges. For more information see Policy Stat Procedure [place] High Sensitivity Troponin (TNIH) and attachments. Performed By: #### L 100.0100, L500.2500, L501.4020, L501.5200 ####[facility] [address] [place], [address] Lymphocytes Auto (Unsp spec) [#/Vol]Ordered By: Mani Esquivel on 09-01-2024 Lymphocytes (Bld) [#/Vol] 2.06 10*3/uL 0.83-4.5 1 [facility] Lymphocytes/100 WBC Auto (Un sp spec)Ordered By: Mani Esquivel on 09-01-2024 Lymphocytes/100 WBC (Bld) 18.2 % Low 19-41 [facility] MCV (mean corpuscular volume ) determinationOrdered By: Mani Esquivel on 09-01-2024 MCV (RBC) [Entitic vol] 82.8 fL 80-94 [facility] Magnesiumon 09-01-2024 Magnesium [Mass/Vol] 2.2 mg/dL Normal 1.6-2.6 [facility] Comment on above: Order Comment: 'TROP ' Serial specimen #1, #2 or #3: 1 Performed By: #### L 100.0100, L500.2500, L501.4020, L501.5200 ####[facility] [address] [place], [address] Magnesium measurementOrdered By: Mani Esquivel on 09-01-2024 Magnesium [Mass/Vol] 2.2 mg/dL 1.6-2.6 [facility] Mean corpuscular hemoglobin (MCH) determinationOrdered By: Mani Esquivel on 09-01-2024 MCH (RBC) [Entitic mass] 26.2 pg Low 27.0-32.0 [facility] Mean corpuscular hemoglobin concentration (MCHC) determinationOrdered By: Mani Esquivel on 09-01-2024 MCHC (RBC) [Mass/Vol] 31.6 g/dL Low 32-36 [facility] Mean platelet volume determi nationOrdered By: Mani Esquivel on 09-01-2024 Platelet mean volume (Bld) [Entitic vol] 11.2 fL 6.2-12.0 [facility] Microscopic analysis of urin e for red blood cells (RBC)Ordered By: Mani Esquivel on 09-01-2024 Urine RBC 10-25 SEEN /hpf 0-5 [facility] Monocyte percentageOrdered B y: Mani Esquivel on 09-01-2024 Monocytes/100 WBC (Bld) 11.8 % High 0-10 [facility] Mucus LM Ql (Urine sed)Order ed By: Mani Esquivel on 09-01-2024 Mucus Ql (Urine sed) 0 SEEN /hpf [facility] Neutrophil percentageOrdered By: Mani Esquivel on 09-01-2024 Neutrophils/100 WBC (Bld) 66.4 % 47-70 [facility] Nitrite Test strip Ql (U)Ord ered By: Mani Esquivel on 09-01-2024 Nitrite Ql (U) Negative Negative [facility] Nucleated red blood cell per centageOrdered By: Mani Esquivel on 09-01-2024 Nucleated RBC/100 WBC (Bld) [Ratio] 0 % 0-5 [facility] Platelet countOrdered By: Brigitte Esquivel on 09-01-2024 Platelets (Bld) [#/Vol] 301 10*3/uL 150-450 [facility] Potassium measurementOrdered By: Mani Esquivel on 09-01-2024 Potassium [Moles/Vol] 3.6 mmol/L 3.5-5.1 [facility] Protein Test strip Ql (U)Ord ered By: Mani Esquivel on 09-01-2024 Protein Ql (U) 30 mg/dl High Negative [facility] RBC Auto (Bld) [#/Vol]Ordere d By: Mani Esquivel on 09-01-2024 RBC (Bld) [#/Vol] 5.00 10*6/uL 4.6-6.2 [facility] Serum anion gap measurementO rdered By: Mani Esquivel on 09-01-2024 Anion gap [Moles/Vol] 7 mmol/L 5-15 [facility] Serum or plasma calcium nahomy urement (mass/volume)Ordered By: Mani Esquivel on 09-01-2024 Calcium [Mass/Vol] 9.3 mg/dL 8.5-10.1 [facility] Serum or plasma creatinine m easurement (mass/volume)Ordered By: Mani Esquivel on 09-01-2024 Creatinine [Mass/Vol] 1.14 mg/dL 0.70-1.30 [facility] Comment on above: The validity of the calculated GFR & GFRAA in patients over 70 years has not been determined. Clinical correlation is essential. Serum or plasma urea nitroge n measurement (mass/volume)Ordered By: Mani Esquivel on 09-01-2024 Urea nitrogen [Mass/Vol] 32 mg/dL High 7-18 [facility] Sodium levelOrdered By: Lit Esquivel on 09-01-2024 Sodium [Moles/Vol] 138 mmol/L 136-145 [facility] Troponin IOrdered By: Mani Esquivel on 09-01-2024 Troponin I High Sensitivity 11 pg/mL 3.0-78.0 [facility] Comment on above: Please Note: New Carmen t Units and Gender Specific Reference Ranges. For more information see Policy Stat Procedure [place] High Sensitivity Troponin (TNIH) and attachments. Urinalysis, Completeon 09-01 BACTERIA 4+ /hpf Normal None Seen [facility] Comment on above: Order Comment: GO CTOR TO SPECIFY Performed By: #### L 400.0001 ####[facility] [address] [place] [address] EPI,SQUAMOUS 5-10 SEEN Normal 0-5 [facility] Comment on above: Order Comment: GO CTOR TO SPECIFY Performed By: #### L 400.0001 ####[facility] [address] [facility] [address] RBC 10-25 SEEN Normal 0-5 [facility] Comment on above: Order Comment: GO CTOR TO SPECIFY Performed By: #### L 400.0001 ####[facility] [address] [facility] [address] WBC 25-50 SEEN Normal 0-5 [facility] Comment on above: Order Comment: GO CTOR TO SPECIFY Performed By: #### [id number] ####[facility] [address] [facility] [id number] Mucus Ql (Urine sed) 0 SEEN Normal [facility] Comment on above: Order Comment: GO CTOR TO SPECIFY Performed By: #### L [id number] ####[facility] [address] [place] [id number] Urine blood detectionOrdered By: Mani Esquivel on 09-01-2024 Urine Occult Blood 150 /ul High Negative [facility] Urine clarityOrdered By: Rashel Esquivel on 09-01-2024 Clarity (U) Cloudy Clear [facility] Urine color determinationOrd ered By: Mani Esquivel on 09-01-2024 Color (U) Yellow Yellow [facility] Urine cultureOrdered By: Rashel Esquivel on 09-01-2024 Bacteria identified Cx Nom (U) Positive Abnormal [facility] Urine leukocyte esterase det ection by dipstickOrdered By: Mani Esquivel on 09-01-2024 Leukocyte esterase Test strip Ql (U) 500 /ul High Negative [facility] Urine pHOrdered By: Mani khanna on 09-01-2024 pH (U) 5.0 [pH] 5.0 - 8.0 [facility] Urine sediment bacteria coun t by microscopy (number/high power field)Ordered By: Mani Esquivel on 09-01-2024 Bacteria LM.HPF (Urine sed) [#/Area] 4 /[HPF] None Seen [facility] Urine specific gravity measu rementOrdered By: Mani Esquivel on 09-01-2024 Specific gravity (U) [Rel density] 1.025 1.002-1.03 0 [facility] Urobilinogen Ql (U)Ordered B y: Mani Esquivel on 09-01-2024 Urine Urobilinogen Normal mg/dl Normal [facility] White blood cell (WBC) count Ordered By: Mani Esquivel on 09-01-2024 WBC (Bld) [#/Vol] 11.3 10*3/uL High 4.4-11.0 [facility] White blood cell countOrdere d By: Mani Esquivel on 09-01-2024 Urine WBC 25-50 SEEN /hpf 0-5 [facility] CNPNon 08-18-2024 CNPN Telephone ([facility]) ----- ESHAFAISAL PYLE ([id number]) 1945 M Date Time Provider Department 08/18/24 MATHIEU VIRGEN During your visit today, we recorded the following information about you: Kristina Higuera LPN 08/18/2024 12:58 PM Signed Kate with [facility] calls to check on status of [...] Date Reviewed: 07/29/2024 Reviewed by: Julianna Hood APRN.MANUFACTURING MAINTENANCE TECHNICIAN - Fully Assessed Reason for Visit: Orders [...] a day before meals. Getting through [facility] - dilTIAZem CD (CARDIZEM CD, CARTIA [...] mouth every 12 hours. Prescribed by outside cartography professor - insulin glargine (BASAGLAR KWIKPEN U-100 INSULIN) [...] polyps [Z (more content not included)... Normal [facility] Ema 08-15-2024 CAESARN Telephone ([facility]) ----- ESHAFAISAL ([id number]) 1945 M Date Time Provider Department 08/15/24 MATHIEU VIRGEN During your visit today, we recorded the following information about you: Angelina Bliss RN 08/15/2024 9:05 AM Signed Summer calling with [employer], the [email or web address] assisting patient with Dexcom G7 CGM. Requesting recent OV note to further proceed with pt's CGM order. Faxed as requested to [phone]. Angelina Bliss RN Allergies As of Date: 08/15/2024 Noted Allergy Reaction AMOXICILLIN 05/11/2005 Comments: generalized erythema Date Reviewed: 07/29/2024 Reviewed by: Julianna Hood APRN.MANUFACTURING MAINTENANCE TECHNICIAN - Fully Assessed Reason for Visit: CGM [...] - Blood-Glucose Meter,Continuous (FREESTYLE MARIELLE 3 READER) [facility] Use to check blood sugar [...] mouth every 12 hours. Prescribed by outside cartography professor - insulin glargine (BASAGLAR KWIKPEN U-100 INSULIN) [...] Left low (more content not included)... Normal [facility] Cardiology Visit Reporton Cardiology Visit Report Normal [facility] Absolute neutrophil countOrd ered By: Sergey Carreon on 08-11-2024 Neutrophils (Bld) [#/Vol] 8.0 10*3/uL High 2.0-7.7 [facility] Albumin to globulin ratioOrd ered By: Sergey Carreon on 08-11-2024 Albumin/Globulin [Mass ratio] 0.9 {ratio} 0.9-2.4 [facility] Basophil percentageOrdered B y: Sergey Carreon on 08-11-2024 Basophils/100 WBC (Bld) 0.4 % 0-1 [facility] Bilirubin, totalOrdered By: Sergey Carreon on 08-11-2024 Bilirubin [Mass/Vol] 0.30 mg/dL 0.20-1.00 [facility] Comment on above: For patients on eltr ombopag therapy, use of Dimension [place] TBIL is not recommended. Blood urea nitrogen (BUN)/cr eatinine ratioOrdered By: Sergey Lauri on 08-11-2024 Urea nitrogen/Creatinine [Mass ratio] 25.5 mg/mg High 10-20 [facility] CBC W/Diff, Automatedon 07-19 Absolute Lymph 1.24 X10 3/uL Normal 0.83-4.51 [facility] Comment on above: Performed By: #### L 100.0100, L500.4050, L501.5200, L501.9520 ####[facility] [address] [place], [address] Absolute Neut 8.0 X10 3/uL High 2.0-7.7 [facility] Comment on above: Performed By: #### L 100.0100, L500.4050, L501.5200, L501.9520 ####[facility] [address] [place], [address] Basophils/100 WBC (Bld) 0.4 % Normal 0-1 [facility] Comment on above: Performed By: #### L 100.0100, L500.4050, L501.5200, L501.9520 ####[facility] [address] [place], [address] Eosinophils/100 WBC (Bld) 2.3 % Normal 0-5 [facility] Comment on above: Performed By: #### L 100.0100, L500.4050, L501.5200, L501.9520 ####[facility] [address] [place], [address] Erythrocyte distribution width (RBC) [Ratio] 14.5 % Normal 11.6-14.6 [facility] Comment on above: Performed By: #### L 100.0100, L500.4050, L501.5200, L501.9520 ####[facility] [address] [place], [address] Hematocrit (Bld) [Volume fraction] 42.3 % Normal 40-54 [facility] Comment on above: Performed By: #### L 100.0100, L500.4050, L501.5200, L501.9520 ####[facility] [address] [place], [address] Hemoglobin (Bld) [Mass/Vol] 13.4 g/dL Normal 13.0-16.5 [facility] Comment on above: Performed By: #### L 100.0100, L500.4050, L501.5200, L501.9520 ####[facility] [address] [place], [address] IG% 0.500 Normal 0.0-0.9 [facility] Comment on above: Result Comment: IG% - Immature Granulocytes (promyelocytes, myelocytes andmetamyelocytes) > 1% indicates that a LEFT SHIFT is Present. Performed By: #### L 100.0100, L500.4050, L501.5200, L501.9520 ####[facility] [address] [place], [address] Lymphocytes/100 WBC (Bld) 11.8 % Low 19-41 [facility] Comment on above: Performed By: #### L 100.0100, L500.4050, L501.5200, L501.9520 ####[facility] [address] [place], [address] MCH (RBC) [Entitic mass] 26.4 pg Low 27.0-32.0 [facility] Comment on above: Performed By: #### L 100.0100, L500.4050, L501.5200, L501.9520 ####[facility] [address] [place], [address] MCHC (RBC) [Mass/Vol] 31.7 g/dL Low 32-36 [facility] Comment on above: Performed By: #### L 100.0100, L500.4050, L501.5200, L501.9520 ####[facility] [address] [place], [address] MCV (RBC) [Entitic vol] 83.3 fL Normal 80-94 [facility] Comment on above: Performed By: #### L 100.0100, L500.4050, L501.5200, L501.9520 ####[facility] [address] [place], [address] Monocytes/100 WBC (Bld) 9.3 % Normal 0-10 [facility] Comment on above: Performed By: #### L 100.0100, L500.4050, L501.5200, L501.9520 ####[facility] [address] [place], [address] Neutrophils/100 WBC (Bld) 75.7 % High 47-70 [facility] Comment on above: Performed By: #### L 100.0100, L500.4050, L501.5200, L501.9520 ####[facility] [address] [place], [address] Nucleated RBC (Bld) [#/Vol] 0 10*3/uL Normal 0-5 [facility] Comment on above: Performed By: #### L 100.0100, L500.4050, L501.5200, L501.9520 ####[facility] [address] [place], [address] Platelet mean volume (Bld) [Entitic vol] 11.4 fL Normal 6.2-12.0 [facility] Comment on above: Performed By: #### L 100.0100, L500.4050, L501.5200, L501.9520 ####[facility] [address] [place], [address] Platelets (Bld) [#/Vol] 241 10*3/uL Normal 150-450 [facility] Comment on above: Performed By: #### L 100.0100, L500.4050, L501.5200, L501.9520 ####[facility] [address] [place], [address] RBC (Bld) [#/Vol] 5.08 10*6/uL Normal 4.6-6.2 [facility] Comment on above: Performed By: #### L 100.0100, L500.4050, L501.5200, L501.9520 ####[facility] [address] [place], [address] RDW SD 43.5 fl Normal 35.1-43.9 [facility] Comment on above: Performed By: #### L 100.0100, L500.4050, L501.5200, L501.9520 ####[facility] [address] [place], [address] WBC (Bld) [#/Vol] 10.6 10*3/uL Normal 4.4-11.0 [facility] Comment on above: Performed By: #### L 100.0100, L500.4050, L501.5200, L501.9520 ####[facility] [address] [place], [address] [facility] FAISAL ALARCON ([id number]) 1945 M Date Time Provider Department 08/11/24 MATHIEU VIRGEN [facility] During your visit today, we recorded [...] Date Reviewed: 07/29/2024 Reviewed by: Julianna Hood APRN.[facility] - Fully Assessed Reason for Visit: [...] - Blood-Glucose Meter,Continuous (FREESTYLE MARIELLE 3 READER) [facility] Use to check blood sugar [...] a day before meals. Getting through [facility] - dilTIAZem CD (CARDIZEM CD, CARTIA [...] mouth every 12 hours. Prescribed by outside cartography professor - insulin glargine (BASAGLAR KWIKPEN U-100 INSULIN) [...] atrial fibrillatio (more content not included)... Normal [facility] Carbon dioxide measurementOr dered By: Sergey Carreon on 08-11-2024 CO2 [Moles/Vol] 25.0 mmol/L 21.0-32.0 [facility] Chloride measurementOrdered By: Sergey Carreon on 08-11-2024 Chloride [Moles/Vol] 104 mmol/L 98-107 [facility] Comprehensive Metabolic Prof ilon 08-11-2024 Albumin [Mass/Vol] 3.6 g/dL Normal 3.2-5.0 [facility] Comment on above: Performed By: #### L 100.0100, L500.4050, L501.5200, L501.9520 ####[facility] [address] [place], [address] Albumin/Globulin [Mass ratio] 0.9 {ratio} Normal 0.9-2.4 [facility] Comment on above: Performed By: #### L 100.0100, L500.4050, L501.5200, L501.9520 ####[facility] [address] [place], [address] ALK P 91 U/L Normal 45-117 [facility] Comment on above: Performed By: #### L 100.0100, L500.4050, L501.5200, L501.9520 ####[facility] [address] [place], [address] ALT [Catalytic activity/Vol] 19 U/L Normal 16-61 [facility] Comment on above: Performed By: #### L 100.0100, L500.4050, L501.5200, L501.9520 ####[facility] [address] [place], [address] AST [Catalytic activity/Vol] 14 U/L Low 15-37 [facility] Comment on above: Performed By: #### L 100.0100, L500.4050, L501.5200, L501.9520 ####[facility] [address] [place], [address] Bilirubin [Mass/Vol] 0.30 mg/dL Normal 0.20-1.00 [facility] Comment on above: Result Comment: For patients on eltrombopag therapy, use of Dimension [place] TBIL is not recommended. Performed By: #### L 100.0100, L500.4050, L501.5200, L501.9520 ####[facility] [address] [place], [address] BUN/CRE 25.5 RATIO High 10-20 [facility] Comment on above: Performed By: #### L 100.0100, L500.4050, L501.5200, L501.9520 ####[facility] [address] [place], [address] CA,Total 9.6 mg/dL Normal 8.5-10.1 [facility] Comment on above: Performed By: #### L 100.0100, L500.4050, L501.5200, L501.9520 ####[facility] [address] [place], [address] Chloride [Moles/Vol] 104 mmol/L Normal 98-107 [facility] Comment on above: Performed By: #### L 100.0100, L500.4050, L501.5200, L501.9520 ####[facility] [address] [place], [address] CO2 [Moles/Vol] 25.0 mmol/L Normal 21.0-32.0 [facility] Comment on above: Performed By: #### L 100.0100, L500.4050, L501.5200, L501.9520 ####[facility] [address] [place], [address] Creatinine [Mass/Vol] 1.37 mg/dL High 0.70-1.30 [facility] Comment on above: Result Comment: The validity of the calculated GFR GFRAA in patients over70 years has not been determined. Clinical correlation isessential. Performed By: #### L 100.0100, L500.4050, L501.5200, L501.9520 ####[facility] [address] [place], [address] EST GFR - AA 64 mL/min Normal >60 [facility] Comment on above: Result Comment: Afri can Faroese GFR Calc Performed By: #### L 100.0100, L500.4050, L501.5200, L501.9520 ####[facility] [address] [place], [address] GAP 8 Normal 5-15 [facility] Comment on above: Performed By: #### L 100.0100, L500.4050, L501.5200, L501.9520 ####[facility] [address] [place], [address] GFR/1.73 sq M.predicted among non-blacks MDRD (S/P/Bld) [Vol rate/Area] 53 mL/min/{1.73_m2} Low >60 [facility] Comment on above: Result Comment: Non- GFR Calc Performed By: #### L 100.0100, L500.4050, L501.5200, L501.9520 ####[facility] [address] [place], [address] Globulin (S) [Mass/Vol] 3.9 g/dL Normal 2.2-4.2 [facility] Comment on above: Performed By: #### L 100.0100, L500.4050, L501.5200, L501.9520 ####[facility] [address] [place], [address] Glucose [Mass/Vol] 168 mg/dL High 74-106 [facility] Comment on above: Result Comment: Fast ing Glucose result greater than or equal to 126 mg/dLsuggests DIABETES MELLITUS per A.D.A. criteria. Performed By: #### L 100.0100, L500.4050, L501.5200, L501.9520 ####[facility] [address] [place], [address] Potassium [Moles/Vol] 4.2 mmol/L Normal 3.5-5.1 [facility] Comment on above: Performed By: #### L 100.0100, L500.4050, L501.5200, L501.9520 ####[facility] [address] [place], [address] Sodium [Moles/Vol] 136 mmol/L Normal 136-145 [facility] Comment on above: Performed By: #### L 100.0100, L500.4050, L501.5200, L501.9520 ####[facility] [address] [place], [address] T PROT 7.5 g/dL Normal 6.4-8.2 [facility] Comment on above: Performed By: #### L 100.0100, L500.4050, L501.5200, L501.9520 ####[facility] [address] [place], [address] Urea nitrogen [Mass/Vol] 35 mg/dL High 7-18 [facility] Comment on above: Performed By: #### L 100.0100, L500.4050, L501.5200, L501.9520 ####[facility] [address] [place], [address] Eosinophil percentageOrdered By: Sergey Carreon on 08-11-2024 Eosinophils/100 WBC (Bld) 2.3 % 0-5 [facility] Erythrocyte distribution wid th ratioOrdered By: Sergey Carreon on 08-11-2024 Erythrocyte distribution width (RBC) [Ratio] 14.5 % 11.6-14.6 [facility] Erythrocyte distribution wid th standard deviationOrdered By: Sergey Carreon on 08-11-2024 Erythrocyte distribution width (RBC) [Entitic vol] 43.5 fL 35.1-43.9 [facility] Estimated glomerular filtrat ion rate (GFR) AmericanOrdered By: Sergey Carreon on 08-11-2024 Estimated GFR (MDRD) Amer 64 mL/min >60 [facility] Comment on above: GFR Calc Glomerular filtration rate ( GFR) estimationOrdered By: Sergey Carreon on 08-11-2024 Estimated GFR (MDRD) Non-Af Amer 53 mL/min Low >60 [facility] Comment on above: Non- GFR Calc Glucose measurementOrdered B y: Sergey Carreon on 08-11-2024 Glucose [Mass/Vol] 168 mg/dL High 74-106 [facility] Comment on above: Fasting Glucose resu lt greater than or equal to 126 mg/dL suggests DIABETES MELLITUS per A.D.A. criteria. Hematocrit Auto (Bld) [Volum e fraction]Ordered By: Sergey Carreon on 08-11-2024 Hematocrit (Bld) [Volume fraction] 42.3 % 40-54 [facility] Hemoglobin measurementOrdere d By: Sergey Carreon on 08-11-2024 Hemoglobin (Bld) [Mass/Vol] 13.4 g/dL 13.0-16.5 [facility] Immature granulocytes/100 WB C Auto (Bld)Ordered By: Sergey Carreon on 08-11-2024 Immature granulocytes/100 WBC (Bld) 0.500 % 0.0-0.9 [facility] Comment on above: IG% - Immature Granu locytes (promyelocytes, myelocytes and metamyelocytes) > 1% indicates that a LEFT SHIFT is Present. Laboratory - Chemistry and C hemistry - challengeOrdered By: Sergey Carreon on 08-11-2024 AST [Catalytic activity/Vol] 14 U/L Low 15-37 [facility] Lymphocytes Auto (Unsp spec) [#/Vol]Ordered By: Sergey Carreon on 08-11-2024 Lymphocytes (Bld) [#/Vol] 1.24 10*3/uL 0.83-4.5 1 [facility] Lymphocytes/100 WBC Auto (Un sp spec)Ordered By: Sergey Carreon on 08-11-2024 Lymphocytes/100 WBC (Bld) 11.8 % Low 19-41 [facility] MCV (mean corpuscular volume ) determinationOrdered By: Sergey Carreon on 08-11-2024 MCV (RBC) [Entitic vol] 83.3 fL 80-94 [facility] Magnesiumon 08-11-2024 Magnesium [Mass/Vol] 2.2 mg/dL Normal 1.6-2.6 [facility] Comment on above: Performed By: #### L 100.0100, L500.4050, L501.5200, L501.9520 ####[facility] [address] [place], [address] Magnesium measurementOrdered By: Sergey Carreon on 08-11-2024 Magnesium [Mass/Vol] 2.2 mg/dL 1.6-2.6 [facility] Mean corpuscular hemoglobin (MCH) determinationOrdered By: Sergey Carreon on 08-11-2024 MCH (RBC) [Entitic mass] 26.4 pg Low 27.0-32.0 [facility] Mean corpuscular hemoglobin concentration (MCHC) determinationOrdered By: Sergey Carreon on 08-11-2024 MCHC (RBC) [Mass/Vol] 31.7 g/dL Low 32-36 [facility] Mean platelet volume determi nationOrdered By: Sergey Carreon on 08-11-2024 Platelet mean volume (Bld) [Entitic vol] 11.4 fL 6.2-12.0 [facility] Monocyte percentageOrdered B y: Sergey Carreon on 08-11-2024 Monocytes/100 WBC (Bld) 9.3 % 0-10 [facility] Neutrophil percentageOrdered By: Sergey Carreon on 08-11-2024 Neutrophils/100 WBC (Bld) 75.7 % High 47-70 [facility] Nucleated red blood cell per centageOrdered By: Sergey Carreon on 08-11-2024 Nucleated RBC/100 WBC (Bld) [Ratio] 0 % 0-5 [facility] Platelet countOrdered By: Marcelina Carreon on 08-11-2024 Platelets (Bld) [#/Vol] 241 10*3/uL 150-450 [facility] Potassium measurementOrdered By: Sergey Carreon on 08-11-2024 Potassium [Moles/Vol] 4.2 mmol/L 3.5-5.1 [facility] RBC Auto (Bld) [#/Vol]Ordere d By: Sergey Carreon on 08-11-2024 RBC (Bld) [#/Vol] 5.08 10*6/uL 4.6-6.2 [facility] Serum anion gap measurementO rdered By: Sergey Carreon on 08-11-2024 Anion gap [Moles/Vol] 8 mmol/L 5-15 [facility] Serum globulin measurementOr dered By: Sergey Carreon on 08-11-2024 Globulin (S) [Mass/Vol] 3.9 g/dL 2.2-4.2 [facility] Serum or plasma alanine cottrell otransferase (ALT) measurementOrdered By: Sergey Carreon on 08-11-2024 ALT [Catalytic activity/Vol] 19 U/L 16-61 [facility] Serum or plasma albumin nahomy urement (mass/volume)Ordered By: Sergey Carreon on 08-11-2024 Albumin [Mass/Vol] 3.6 g/dL 3.2-5.0 [facility] Serum or plasma alkaline ahsan sphatase measurementOrdered By: Segrey Carreon on 08-11-2024 ALP [Catalytic activity/Vol] 91 U/L 45-117 [facility] Serum or plasma calcium nahomy urement (mass/volume)Ordered By: Sergey Carreon on 08-11-2024 Calcium [Mass/Vol] 9.6 mg/dL 8.5-10.1 [facility] Serum or plasma creatinine m easurement (mass/volume)Ordered By: Sergey Carreon on 08-11-2024 Creatinine [Mass/Vol] 1.37 mg/dL High 0.70-1.30 [facility] Comment on above: The validity of the calculated GFR & GFRAA in patients over 70 years has not been determined. Clinical correlation is essential. Serum or plasma urea nitroge n measurement (mass/volume)Ordered By: Sergey Carreon on 08-11-2024 Urea nitrogen [Mass/Vol] 35 mg/dL High 7-18 [facility] Sodium levelOrdered By: Sergey Carreon on 08-11-2024 Sodium [Moles/Vol] 136 mmol/L 136-145 [facility] TSH QnOrdered By: Sergey Carreon on 08-11-2024 Thyroid Stimulating Hormone (TSH) 1.250 uIU/mL 0.358-3.74 0 [facility] Thyroid Stim Hormone (TSH)on 08-11-2024 TSH 1.250 uIU/mL Normal 0.358-3.74 0 [facility] Comment on above: Performed By: #### L 100.0100, L500.4050, L501.5200, L501.9520 ####[facility] [address] [place], [address] Total proteinOrdered By: Morgan Carreon on 08-11-2024 Protein [Mass/Vol] 7.5 g/dL 6.4-8.2 [facility] White blood cell (WBC) count Ordered By: Sergey Carreon on 08-11-2024 WBC (Bld) [#/Vol] 10.6 10*3/uL 4.4-11.0 [facility] Basic Metabolic Profile (BMP )on 07-31-2024 BUN/CRE 17.5 RATIO Normal 10-20 [facility] Comment on above: Performed By: #### L 100.0100, L500.2500, L501.5200 ####[facility] [address] [place], [address] CA,Total 9.0 mg/dL Normal 8.5-10.1 [facility] Comment on above: Performed By: #### L 100.0100, L500.2500, L501.5200 ####[facility] [address] [place], [address] Chloride [Moles/Vol] 107 mmol/L Normal 98-107 [facility] Comment on above: Performed By: #### L 100.0100, L500.2500, L501.5200 ####[facility] [address] [place], [address] CO2 [Moles/Vol] 27.0 mmol/L Normal 21.0-32.0 [facility] Comment on above: Performed By: #### L 100.0100, L500.2500, L501.5200 ####[facility] [address] [place], [address] Creatinine [Mass/Vol] 1.26 mg/dL Normal 0.70-1.30 [facility] Comment on above: Result Comment: The validity of the calculated GFR GFRAA in patients over70 years has not been determined. Clinical correlation isessential. Performed By: #### L 100.0100, L500.2500, L501.5200 ####[facility] [address] [place], [address] EST GFR - AA 71 mL/min Normal >60 [facility] Comment on above: Result Comment: Afri can Faroese GFR Calc Performed By: #### L 100.0100, L500.2500, L501.5200 ####[facility] [address] [place], [address] GAP 7 Normal 5-15 [facility] Comment on above: Performed By: #### L 100.0100, L500.2500, L501.5200 ####[facility] [address] [place], [address] GFR/1.73 sq M.predicted among non-blacks MDRD (S/P/Bld) [Vol rate/Area] 59 mL/min/{1.73_m2} Low >60 [facility] Comment on above: Result Comment: Non- GFR Calc Performed By: #### L 100.0100, L500.2500, L501.5200 ####[facility] [id number] [place], [address] Glucose [Mass/Vol] 119 mg/dL High 74-106 [facility] Comment on above: Result Comment: Fast ing Glucose result from 100 to 125 mg/dLsuggests IMPAIRED HOMEOSTASIS per A.D.A. criteria. Performed By: #### L 100.0100, L500.2500, L501.5200 ####[facility] [id number] [place], [address] Potassium [Moles/Vol] 3.6 mmol/L Normal 3.5-5.1 [facility] Comment on above: Performed By: #### L 100.0100, L500.2500, L501.5200 ####[facility] [id number] [place], [address] Sodium [Moles/Vol] 141 mmol/L Normal 136-145 [facility] Comment on above: Performed By: #### L 100.0100, L500.2500, L501.5200 ####[facility] [address] [place], [address] Urea nitrogen [Mass/Vol] 22 mg/dL High 7-18 [facility] Comment on above: Performed By: #### L 100.0100, L500.2500, L501.5200 ####[facility] [address] [place], [address] CBC W/Diff, Automatedon 07-18 Absolute Lymph 1.13 X10 3/uL Normal 0.83-4.51 [facility] Comment on above: Performed By: #### L 100.0100, L500.2500, L501.5200 ####[facility] [address] [place], [address] Absolute Neut 6.1 X10 3/uL Normal 2.0-7.7 [facility] Comment on above: Performed By: #### L 100.0100, L500.2500, L501.5200 ####[facility] [address] [place], [address] Basophils/100 WBC (Bld) 0.4 % Normal 0-1 [facility] Comment on above: Performed By: #### L 100.0100, L500.2500, L501.5200 ####[facility] [address] [place], [address] Eosinophils/100 WBC (Bld) 2.6 % Normal 0-5 [facility] Comment on above: Performed By: #### L 100.0100, L500.2500, L501.5200 ####[facility] [address] [place], [address] Erythrocyte distribution width (RBC) [Ratio] 14.1 % Normal 11.6-14.6 [facility] Comment on above: Performed By: #### L 100.0100, L500.2500, L501.5200 ####[facility] [address] [place], [address] Hematocrit (Bld) [Volume fraction] 38.0 % Low 40-54 [facility] Comment on above: Performed By: #### L 100.0100, L500.2500, L501.5200 ####[facility] [address] [place], [address] Hemoglobin (Bld) [Mass/Vol] 11.8 g/dL Low 13.0-16.5 [facility] Comment on above: Performed By: #### L 100.0100, L500.2500, L501.5200 ####[facility] [address] [place], [address] IG% 0.200 Normal 0.0-0.9 [facility] Comment on above: Result Comment: IG% - Immature Granulocytes (promyelocytes, myelocytes andmetamyelocytes) > 1% indicates that a LEFT SHIFT is Present. Performed By: #### L 100.0100, L500.2500, L501.5200 ####[facility] [address] [place], [address] Lymphocytes/100 WBC (Bld) 13.3 % Low 19-41 [facility] Comment on above: Performed By: #### L 100.0100, L500.2500, L501.5200 ####[facility] [address] [place], [address] MCH (RBC) [Entitic mass] 26.3 pg Low 27.0-32.0 [facility] Comment on above: Performed By: #### L 100.0100, L500.2500, L501.5200 ####[facility] [address] [place], [address] MCHC (RBC) [Mass/Vol] 31.1 g/dL Low 32-36 [facility] Comment on above: Performed By: #### L 100.0100, L500.2500, L501.5200 ####[facility] [address] [place], [address] MCV (RBC) [Entitic vol] 84.8 fL Normal 80-94 [facility] Comment on above: Performed By: #### L 100.0100, L500.2500, L501.5200 ####[facility] [address] [place], [address] Monocytes/100 WBC (Bld) 11.5 % High 0-10 [facility] Comment on above: Performed By: #### L 100.0100, L500.2500, L501.5200 ####[facility] [address] [place], [address] Neutrophils/100 WBC (Bld) 72.0 % High 47-70 [facility] Comment on above: Performed By: #### L 100.0100, L500.2500, L501.5200 ####[facility] [address] [place], [address] Nucleated RBC (Bld) [#/Vol] 0 10*3/uL Normal 0-5 [facility] Comment on above: Performed By: #### L 100.0100, L500.2500, L501.5200 ####[facility] [address] [place], [address] Platelet mean volume (Bld) [Entitic vol] 11.4 fL Normal 6.2-12.0 [facility] Comment on above: Performed By: #### L 100.0100, L500.2500, L501.5200 ####[facility] [address] [place], [address] Platelets (Bld) [#/Vol] 282 10*3/uL Normal 150-450 [facility] Comment on above: Performed By: #### L 100.0100, L500.2500, L501.5200 ####[facility] [address] [place], [address] RBC (Bld) [#/Vol] 4.48 10*6/uL Low 4.6-6.2 [facility] Comment on above: Performed By: #### L 100.0100, L500.2500, L501.5200 ####[facility] [address] [place], [address] RDW SD 43.7 fl Normal 35.1-43.9 [facility] Comment on above: Performed By: #### L 100.0100, L500.2500, L501.5200 ####[facility] [address] [place], [address] WBC (Bld) [#/Vol] 8.5 10*3/uL Normal 4.4-11.0 [facility] Comment on above: Performed By: #### L 100.0100, L500.2500, L501.5200 ####[facility] [address] [place], [address] Ema 07-31-2024 YAKOV Telephone (FAMPWS) ----- ESHAFAISAL PYLE ([id number]) 1945 M Date Time Provider Department 07/31/24 [...] - Blood-Glucose Meter,Continuous (FREESTYLE MARIELLE 3 READER) [facility] Use to check blood sugar [...] day before meals. Getting through [facility] [place] - dilTIAZem CD (CARDIZEM CD, CARTIA XT) [...] mouth every 12 hours. Prescribed by outside cartography professor - insulin glargine (BASAGLAR KWIKPEN U-100 INSULIN) [...] [I48.0] 02/15/2021 (more content not included)... Normal [facility] Magnesiumon 07-31-2024 Magnesium [Mass/Vol] 2.9 mg/dL High 1.6-2.6 [facility] Comment on above: Performed By: #### L 100.0100, L500.2500, L501.5200 ####[facility] [address] [place], [address] Pulmonary Visit Reporton Pulmonary Visit Report Normal [facility] CBC W/Diff, Automatedon 07-18 Absolute Lymph 1.39 X10 3/uL Normal 0.83-4.51 [facility] Comment on above: Performed By: #### L 100.0100, L503.0105, L503.6030, L503.6550, L506.0250 ####[facility] [address] [place], [address] Absolute Neut 7.2 X10 3/uL Normal 2.0-7.7 [facility] Comment on above: Performed By: #### L 100.0100, L503.0105, L503.6030, L503.6550, L506.0250 ####[facility] [address] [place], [address] Basophils/100 WBC (Bld) 0.4 % Normal 0-1 [facility] Comment on above: Performed By: #### L 100.0100, L503.0105, L503.6030, L503.6550, L506.0250 ####[facility] [address] [place], [address] Eosinophils/100 WBC (Bld) 3.0 % Normal 0-5 [facility] Comment on above: Performed By: #### L 100.0100, L503.0105, L503.6030, L503.6550, L506.0250 ####[facility] [address] [place], [address] Erythrocyte distribution width (RBC) [Ratio] 14.1 % Normal 11.6-14.6 [facility] Comment on above: Performed By: #### L 100.0100, L503.0105, L503.6030, L503.6550, L506.0250 ####[facility] [address] [place], [address] Hematocrit (Bld) [Volume fraction] 38.9 % Low 40-54 [facility] Comment on above: Performed By: #### L 100.0100, L503.0105, L503.6030, L503.6550, L506.0250 ####[facility] [address] [place], [address] Hemoglobin (Bld) [Mass/Vol] 12.1 g/dL Low 13.0-16.5 [facility] Comment on above: Performed By: #### L 100.0100, L503.0105, L503.6030, L503.6550, L506.0250 ####[facility] [address] [place], [address] IG% 0.400 Normal 0.0-0.9 [facility] Comment on above: Result Comment: IG% - Immature Granulocytes (promyelocytes, myelocytes andmetamyelocytes) > 1% indicates that a LEFT SHIFT is Present. Performed By: #### L 100.0100, L503.0105, L503.6030, L503.6550, L506.0250 ####[facility] [address] [place], [address] Lymphocytes/100 WBC (Bld) 13.8 % Low 19-41 [facility] Comment on above: Performed By: #### L 100.0100, L503.0105, L503.6030, L503.6550, L506.0250 ####[facility] [address] [place], [address] MCH (RBC) [Entitic mass] 26.1 pg Low 27.0-32.0 [facility] Comment on above: Performed By: #### L 100.0100, L503.0105, L503.6030, L503.6550, L506.0250 ####[facility] [address] [place], [address] MCHC (RBC) [Mass/Vol] 31.1 g/dL Low 32-36 [facility] Comment on above: Performed By: #### L 100.0100, L503.0105, L503.6030, L503.6550, L506.0250 ####[facility] [address] [place], [address] MCV (RBC) [Entitic vol] 84.0 fL Normal 80-94 [facility] Comment on above: Performed By: #### L 100.0100, L503.0105, L503.6030, L503.6550, L506.0250 ####[facility] [address] [place], [address] Monocytes/100 WBC (Bld) 10.6 % High 0-10 [facility] Comment on above: Performed By: #### L 100.0100, L503.0105, L503.6030, L503.6550, L506.0250 ####[facility] [address] [place], [address] Neutrophils/100 WBC (Bld) 71.8 % High 47-70 [facility] Comment on above: Performed By: #### L 100.0100, L503.0105, L503.6030, L503.6550, L506.0250 ####[facility] [address] [place], [address] Nucleated RBC (Bld) [#/Vol] 0 10*3/uL Normal 0-5 [facility] Comment on above: Performed By: #### L 100.0100, L503.0105, L503.6030, L503.6550, L506.0250 ####[facility] [address] [place], [address] Platelet mean volume (Bld) [Entitic vol] 10.6 fL Normal 6.2-12.0 [facility] Comment on above: Performed By: #### L 100.0100, L503.0105, L503.6030, L503.6550, L506.0250 ####[facility] [address] [place], [address] Platelets (Bld) [#/Vol] 321 10*3/uL Normal 150-450 [facility] Comment on above: Performed By: #### L 100.0100, L503.0105, L503.6030, L503.6550, L506.0250 ####[facility] [address] [place], [address] RBC (Bld) [#/Vol] 4.63 10*6/uL Normal 4.6-6.2 [facility] Comment on above: Performed By: #### L 100.0100, L503.0105, L503.6030, L503.6550, L506.0250 ####[facility] [address] [place], [address] RDW SD 42.7 fl Normal 35.1-43.9 [facility] Comment on above: Performed By: #### L 100.0100, L503.0105, L503.6030, L503.6550, L506.0250 ####[facility] [address] [place], [address] WBC (Bld) [#/Vol] 10.0 10*3/uL Normal 4.4-11.0 [facility] Comment on above: Performed By: #### L 100.0100, L503.0105, L503.6030, L503.6550, L506.0250 ####[facility] [address] [place], [address] Ferritinon 07-28-2024 Ferritin [Mass/Vol] 27 ng/mL Normal 26-388 [facility] Comment on above: Order Comment: N Performed By: #### L 100.0100, L503.0105, L503.6030, L503.6550, L506.0250 ####[facility] [address] [place], [address] Folates, (Folic Acid)on 07-18 FOLATES 14.80 ng/mL Normal 3.1-55.4 [facility] Comment on above: Order Comment: N Performed By: #### L 100.0100, L503.0105, L503.6030, L503.6550, L506.0250 ####[facility] [address] [place], [address] Iron+Iron Binding Capacityon 07-28-2024 Iron [Mass/Vol] 50 ug/dL Low 65-175 [facility] Comment on above: Order Comment: N Performed By: #### L 100.0100, L503.0105, L503.6030, L503.6550, L506.0250 ####[facility] [address] [place], [address] IRON SATURATION 12.6 Low 15.0-55.0 [facility] Comment on above: Order Comment: N Performed By: #### L 100.0100, L503.0105, L503.6030, L503.6550, L506.0250 ####[facility] [address] [place], [address] TIBC 397 ug/dL Normal 250-450 [facility] Comment on above: Order Comment: N Performed By: #### L 100.0100, L503.0105, L503.6030, L503.6550, L506.0250 ####[facility] [address] [place], [address] Vitamin B12on 07-28-2024 Cobalamin (Vitamin B12) [Mass/Vol] 310 pg/mL Normal 211-911 [facility] Comment on above: Performed By: #### L 100.0100, L503.0105, L503.6030, L503.6550, L506.0250 ####[facility] [address] [place], [address] Basic Metabolic Profile (BMP )on 07-25-2024 BUN/CRE 34.6 RATIO High 10-20 [facility] Comment on above: Performed By: #### L 100.0100, L500.2500 ####[facility] [address] [place], [address] CA,Total 8.9 mg/dL Normal 8.5-10.1 [facility] Comment on above: Performed By: #### L 100.0100, L500.2500 ####[facility] [address] [place], [address] Chloride [Moles/Vol] 101 mmol/L Normal 98-107 [facility] Comment on above: Performed By: #### L 100.0100, L500.2500 ####[facility] [address] [place], [address] CO2 [Moles/Vol] 30.0 mmol/L Normal 21.0-32.0 [facility] Comment on above: Performed By: #### L 100.0100, L500.2500 ####[facility] [address] [place], [address] Creatinine [Mass/Vol] 1.07 mg/dL Normal 0.70-1.30 [facility] Comment on above: Result Comment: The validity of the calculated GFR GFRAA in patients over70 years has not been determined. Clinical correlation isessential. Performed By: #### L 100.0100, L500.2500 ####[facility] [address] [place], [address] ECRCL 79.30 ml/min Normal [facility] Comment on above: Performed By: #### L 100.0100, L500.2500 ####[facility] [address] [place], [address] EST GFR - AA 86 mL/min Normal >60 [facility] Comment on above: Result Comment: Afri can Faroese GFR Calc Performed By: #### L 100.0100, L500.2500 ####[facility] [address] [place], [address] GAP 8 Normal 5-15 [facility] Comment on above: Performed By: #### L 100.0100, L500.2500 ####[facility] [address] [place], [address] GFR/1.73 sq M.predicted among non-blacks MDRD (S/P/Bld) [Vol rate/Area] 71 mL/min/{1.73_m2} Normal >60 [facility] Comment on above: Result Comment: Non- GFR Calc Performed By: #### L 100.0100, L500.2500 ####[facility] [address] [place], [address] Glucose [Mass/Vol] 114 mg/dL High 74-106 [facility] Comment on above: Result Comment: Fast ing Glucose result from 100 to 125 mg/dLsuggests IMPAIRED HOMEOSTASIS per A.D.A. criteria. Performed By: #### L 100.0100, L500.2500 ####[facility] [address] [place], [address] Potassium [Moles/Vol] 3.2 mmol/L Low 3.5-5.1 [facility] Comment on above: Performed By: #### L 100.0100, L500.2500 ####[facility] [address] [place], [address] Sodium [Moles/Vol] 138 mmol/L Normal 136-145 [facility] Comment on above: Performed By: #### L 100.0100, L500.2500 ####[facility] [address] [place], [address] Urea nitrogen [Mass/Vol] 37 mg/dL High 7-18 [facility] Comment on above: Performed By: #### L 100.0100, L500.2500 ####[facility] [address] [place], [address] Bedside Glucoseon 07-25-2024 FINGERSTICK GLU 277 mg/dL High 74-106 [facility] Comment on above: Result Comment: URSULA CHAMBERS OF PATIENT CARE PER NURSING PROTOCOL Performed By: #### L 501.080 ####[facility] [address] [place], [address] CBC W/Diff, Automatedon 11-0 Absolute Lymph 2.18 X10 3/uL Normal 0.83-4.51 [facility] Comment on above: Performed By: #### L 100.0100, L500.2500 ####[facility] [address] [place], [address] Absolute Neut 9.3 X10 3/uL High 2.0-7.7 [facility] Comment on above: Performed By: #### L 100.0100, L500.2500 ####[facility] [address] [place], [address] Basophils/100 WBC (Bld) 0.4 % Normal 0-1 [facility] Comment on above: Performed By: #### L 100.0100, L500.2500 ####[facility] [address] [place], [address] Eosinophils/100 WBC (Bld) 2.4 % Normal 0-5 [facility] Comment on above: Performed By: #### L 100.0100, L500.2500 ####[facility] [address] [place], [address] Erythrocyte distribution width (RBC) [Ratio] 14.1 % Normal 11.6-14.6 [facility] Comment on above: Performed By: #### L 100.0100, L500.2500 ####[facility] [address] [place], [address] Hematocrit (Bld) [Volume fraction] 38.3 % Low 40-54 [facility] Comment on above: Performed By: #### L 100.0100, L500.2500 ####[facility] [address] [place], [address] Hemoglobin (Bld) [Mass/Vol] 12.3 g/dL Low 13.0-16.5 [facility] Comment on above: Performed By: #### L 100.0100, L500.2500 ####[facility] [address] [place], [address] IG% 0.800 Normal 0.0-0.9 [facility] Comment on above: Result Comment: IG% - Immature Granulocytes (promyelocytes, myelocytes andmetamyelocytes) > 1% indicates that a LEFT SHIFT is Present. Performed By: #### L 100.0100, L500.2500 ####[facility] [address] [place], [address] Lymphocytes/100 WBC (Bld) 16.4 % Low 19-41 [facility] Comment on above: Performed By: #### L 100.0100, L500.2500 ####[facility] [address] [place], [address] MCH (RBC) [Entitic mass] 26.6 pg Low 27.0-32.0 [facility] Comment on above: Performed By: #### L 100.0100, L500.2500 ####[facility] [address] [place], [address] MCHC (RBC) [Mass/Vol] 32.1 g/dL Normal 32-36 [facility] Comment on above: Performed By: #### L 100.0100, L500.2500 ####[facility] [address] [place], [address] MCV (RBC) [Entitic vol] 82.9 fL Normal 80-94 [facility] Comment on above: Performed By: #### L 100.0100, L500.2500 ####[facility] [address] [place], [address] Monocytes/100 WBC (Bld) 10.5 % High 0-10 [facility] Comment on above: Performed By: #### L 100.0100, L500.2500 ####[facility] [address] [place], [address] Neutrophils/100 WBC (Bld) 69.5 % Normal 47-70 [facility] Comment on above: Performed By: #### L 100.0100, L500.2500 ####[facility] [address] [place], [address] Nucleated RBC (Bld) [#/Vol] 0 10*3/uL Normal 0-5 [facility] Comment on above: Performed By: #### L 100.0100, L500.2500 ####[facility] [address] [place], [address] Platelet mean volume (Bld) [Entitic vol] 10.9 fL Normal 6.2-12.0 [facility] Comment on above: Performed By: #### L 100.0100, L500.2500 ####[facility] [address] [place], [address] Platelets (Bld) [#/Vol] 360 10*3/uL Normal 150-450 [facility] Comment on above: Performed By: #### L 100.0100, L500.2500 ####[facility] [address] [place], [address] RBC (Bld) [#/Vol] 4.62 10*6/uL Normal 4.6-6.2 [facility] Comment on above: Performed By: #### L 100.0100, L500.2500 ####[facility] [address] [place], [address] RDW SD 42.3 fl Normal 35.1-43.9 [facility] Comment on above: Performed By: #### L 100.0100, L500.2500 ####[facility] [address] [place], [address] WBC (Bld) [#/Vol] 13.3 10*3/uL High 4.4-11.0 [facility] Comment on above: Performed By: #### L 100.0100, L500.2500 ####[facility] [address] [place], [address] Basic Metabolic Profile (BMP )on 07-24-2024 BUN/CRE 41.7 RATIO High 10-20 [facility] Comment on above: Performed By: #### L 100.0100, L500.2500 ####[facility] [address] [place], [address] CA,Total 8.7 mg/dL Normal 8.5-10.1 [facility] Comment on above: Performed By: #### L 100.0100, L500.2500 ####[facility] [address] [place], [address] Chloride [Moles/Vol] 104 mmol/L Normal 98-107 [facility] Comment on above: Performed By: #### L 100.0100, L500.2500 ####[facility] [address] [place], [address] CO2 [Moles/Vol] 28.0 mmol/L Normal 21.0-32.0 [facility] Comment on above: Performed By: #### L 100.0100, L500.2500 ####[facility] [address] [place], [address] Creatinine [Mass/Vol] 0.91 mg/dL Normal 0.70-1.30 [facility] Comment on above: Result Comment: The validity of the calculated GFR GFRAA in patients over70 years has not been determined. Clinical correlation isessential. Performed By: #### L 100.0100, L500.2500 ####[facility] [address] [place], [address] ECRCL 93.17 ml/min Normal [facility] Comment on above: Performed By: #### L 100.0100, L500.2500 ####[facility] [address] [place], [address] EST GFR - AA 103 mL/min Normal >60 [facility] Comment on above: Result Comment: Afri can Faroese GFR Calc Performed By: #### L 100.0100, L500.2500 ####[facility] [address] [place], [address] GAP 7 Normal 5-15 [facility] Comment on above: Performed By: #### L 100.0100, L500.2500 ####[facility] [address] [place], [address] GFR/1.73 sq M.predicted among non-blacks MDRD (S/P/Bld) [Vol rate/Area] 85 mL/min/{1.73_m2} Normal >60 [facility] Comment on above: Result Comment: Non- GFR Calc Performed By: #### L 100.0100, L500.2500 ####[facility] [id number] [place], [address] Glucose [Mass/Vol] 221 mg/dL High 74-106 [facility] Comment on above: Result Comment: Gluc ose result greater than or equal to 200 mg/dLsuggests DIABETES MELLITUS per A.D.A. criteria. Performed By: #### L 100.0100, L500.2500 ####[facility] [address] [place], [address] Potassium [Moles/Vol] 4.0 mmol/L Normal 3.5-5.1 [facility] Comment on above: Performed By: #### L 100.0100, L500.2500 ####[facility] [address] [place], [address] Sodium [Moles/Vol] 139 mmol/L Normal 136-145 [facility] Comment on above: Performed By: #### L 100.0100, L500.2500 ####[facility] [address] [place], [address] Urea nitrogen [Mass/Vol] 38 mg/dL High 7-18 [facility] Comment on above: Performed By: #### L 100.0100, L500.2500 ####[facility] [address] [place], [address] Bedside Glucoseon 07-24-2024 FINGERSTICK GLU 108 mg/dL High 74-106 [facility] Comment on above: Result Comment: URSULA GEMENT OF PATIENT CARE PER NURSING PROTOCOL Performed By: #### L 501.080 ####[facility] [address] [place], [address] FINGERSTICK GLU 192 mg/dL High 74-106 [facility] Comment on above: Result Comment: URSULA GEMENT OF PATIENT CARE PER NURSING PROTOCOL Performed By: #### L 501.080 ####[facility] [address] [place], [address] FINGERSTICK GLU 227 mg/dL High 74-106 [facility] Comment on above: Result Comment: URSULA GEMENT OF PATIENT CARE PER NURSING PROTOCOL Performed By: #### L 501.080 ####[facility] [address] [place], [address] FINGERSTICK GLU 227 mg/dL High 74-106 [facility] Comment on above: Result Comment: URSULA CHAMBERS OF PATIENT CARE PER NURSING PROTOCOL Performed By: #### L 501.080 ####[facility] [address] [place], [address] CBC W/Diff, Automatedon 11-0 7-4 Absolute Lymph 2.00 X10 3/uL Normal 0.83-4.51 [facility] Comment on above: Performed By: #### L 100.0100, L500.2500 ####[facility] [address] [place], [address] Absolute Neut 8.9 X10 3/uL High 2.0-7.7 [facility] Comment on above: Performed By: #### L 100.0100, L500.2500 ####[facility] [address] [place], [address] Basophils/100 WBC (Bld) 0.3 % Normal 0-1 [facility] Comment on above: Performed By: #### L 100.0100, L500.2500 ####[facility] [address] [place], [address] Eosinophils/100 WBC (Bld) 1.0 % Normal 0-5 [facility] Comment on above: Performed By: #### L 100.0100, L500.2500 ####[facility] [address] [place], [address] Erythrocyte distribution width (RBC) [Ratio] 14.1 % Normal 11.6-14.6 [facility] Comment on above: Performed By: #### L 100.0100, L500.2500 ####[facility] [address] [place], [address] Hematocrit (Bld) [Volume fraction] 37.0 % Low 40-54 [facility] Comment on above: Performed By: #### L 100.0100, L500.2500 ####[facility] [address] [place], [address] Hemoglobin (Bld) [Mass/Vol] 11.5 g/dL Low 13.0-16.5 [facility] Comment on above: Performed By: #### L 100.0100, L500.2500 ####[facility] [address] [place], [address] IG% 0.600 Normal 0.0-0.9 [facility] Comment on above: Result Comment: IG% - Immature Granulocytes (promyelocytes, myelocytes andmetamyelocytes) > 1% indicates that a LEFT SHIFT is Present. Performed By: #### L 100.0100, L500.2500 ####[facility] [address] [place], [address] Lymphocytes/100 WBC (Bld) 16.0 % Low 19-41 [facility] Comment on above: Performed By: #### L 100.0100, L500.2500 ####[facility] [address] [place], [address] MCH (RBC) [Entitic mass] 26.6 pg Low 27.0-32.0 [facility] Comment on above: Performed By: #### L 100.0100, L500.2500 ####[facility] [address] [place], [address] MCHC (RBC) [Mass/Vol] 31.1 g/dL Low 32-36 [facility] Comment on above: Performed By: #### L 100.0100, L500.2500 ####[facility] [address] [place], [address] MCV (RBC) [Entitic vol] 85.6 fL Normal 80-94 [facility] Comment on above: Performed By: #### L 100.0100, L500.2500 ####[facility] [address] [place], [address] Monocytes/100 WBC (Bld) 11.4 % High 0-10 [facility] Comment on above: Performed By: #### L 100.0100, L500.2500 ####[facility] [address] [place], [address] Neutrophils/100 WBC (Bld) 70.7 % High 47-70 [facility] Comment on above: Performed By: #### L 100.0100, L500.2500 ####[facility] [address] [place], [address] Nucleated RBC (Bld) [#/Vol] 0 10*3/uL Normal 0-5 [facility] Comment on above: Performed By: #### L 100.0100, L500.2500 ####[facility] [address] [place], [address] Platelet mean volume (Bld) [Entitic vol] 11.5 fL Normal 6.2-12.0 [facility] Comment on above: Performed By: #### L 100.0100, L500.2500 ####[facility] [address] [place], [address] Platelets (Bld) [#/Vol] 302 10*3/uL Normal 150-450 [facility] Comment on above: Performed By: #### L 100.0100, L500.2500 ####[facility] [address] [place], [address] RBC (Bld) [#/Vol] 4.32 10*6/uL Low 4.6-6.2 [facility] Comment on above: Performed By: #### L 100.0100, L500.2500 ####[facility] [address] [place], [address] RDW SD 43.9 fl Normal 35.1-43.9 [facility] Comment on above: Performed By: #### L 100.0100, L500.2500 ####[facility] [address] [place], [address] WBC (Bld) [#/Vol] 12.5 10*3/uL High 4.4-11.0 [facility] Comment on above: Performed By: #### L 100.0100, L500.2500 ####[facility] [address] [place], [address] 12 Lead EKGon 07-23-2024 12 Lead EKG Normal [facility] Basic Metabolic Profile (BMP )on 07-23-2024 BUN/CRE 28.7 RATIO High 10-20 [facility] Comment on above: Performed By: #### L 100.0100, L500.2500, L500.4100, L501.5200 ####[facility] [address] [place], [address] CA,Total 9.0 mg/dL Normal 8.5-10.1 [facility] Comment on above: Performed By: #### L 100.0100, L500.2500, L500.4100, L501.5200 ####[facility] [address] [place], [address] Chloride [Moles/Vol] 103 mmol/L Normal 98-107 [facility] Comment on above: Performed By: #### L 100.0100, L500.2500, L500.4100, L501.5200 ####[facility] [address] [place], [address] CO2 [Moles/Vol] 27.0 mmol/L Normal 21.0-32.0 [facility] Comment on above: Performed By: #### L 100.0100, L500.2500, L500.4100, L501.5200 ####[facility] [address] [place], [address] Creatinine [Mass/Vol] 1.08 mg/dL Normal 0.70-1.30 [facility] Comment on above: Result Comment: The validity of the calculated GFR GFRAA in patients over70 years has not been determined. Clinical correlation isessential. Performed By: #### L 100.0100, L500.2500, L500.4100, L501.5200 ####[facility] [address] [place], [address] ECRCL 78.41 ml/min Normal [facility] Comment on above: Performed By: #### L 100.0100, L500.2500, L500.4100, L501.5200 ####[facility] [address] [place], [address] EST GFR - AA 85 mL/min Normal >60 [facility] Comment on above: Result Comment: Afri can Faroese GFR Calc Performed By: #### L 100.0100, L500.2500, L500.4100, L501.5200 ####[facility] [address] [place], [address] GAP 7 Normal 5-15 [facility] Comment on above: Performed By: #### L 100.0100, L500.2500, L500.4100, L501.5200 ####[facility] [address] [place], [address] GFR/1.73 sq M.predicted among non-blacks MDRD (S/P/Bld) [Vol rate/Area] 70 mL/min/{1.73_m2} Normal >60 [facility] Comment on above: Result Comment: Non- GFR Calc Performed By: #### L 100.0100, L500.2500, L500.4100, L501.5200 ####[facility] [address] [place], [address] Glucose [Mass/Vol] 330 mg/dL High 74-106 [facility] Comment on above: Result Comment: Gluc ose result greater than or equal to 200 mg/dLsuggests DIABETES MELLITUS per A.D.A. criteria. Performed By: #### L 100.0100, L500.2500, L500.4100, L501.5200 ####[facility] [address] [place], [address] Potassium [Moles/Vol] 3.9 mmol/L Normal 3.5-5.1 [facility] Comment on above: Performed By: #### L 100.0100, L500.2500, L500.4100, L501.5200 ####[facility] [address] [place], [address] Sodium [Moles/Vol] 137 mmol/L Normal 136-145 [facility] Comment on above: Performed By: #### L 100.0100, L500.2500, L500.4100, L501.5200 ####[facility] [address] [place], [address] Urea nitrogen [Mass/Vol] 31 mg/dL High 7-18 [facility] Comment on above: Performed By: #### L 100.0100, L500.2500, L500.4100, L501.5200 ####[facility] [address] [place], [address] Bedside Glucoseon 07-23-2024 FINGERSTICK GLU 352 mg/dL High 74-106 [facility] Comment on above: Result Comment: URSULA GEMENT OF PATIENT CARE PER NURSING PROTOCOL Performed By: #### L 501.080 ####[facility] [address] [place], [address] FINGERSTICK GLU 409 mg/dL High 74-106 [facility] Comment on above: Result Comment: URSULA GEMENT OF PATIENT CARE PER NURSING PROTOCOL Performed By: #### L 501.080 ####[facility] [address] [place], [address] FINGERSTICK GLU 350 mg/dL High 74-106 [facility] Comment on above: Result Comment: URSULA GEMENT OF PATIENT CARE PER NURSING PROTOCOL Performed By: #### L 501.080 ####[facility] [address] [place], [address] FINGERSTICK GLU 301 mg/dL High 74-106 [facility] Comment on above: Result Comment: URSULA GEMENT OF PATIENT CARE PER NURSING PROTOCOL Performed By: #### L 501.080 ####[facility] [address] [place], [address] CBC W/Diff, Automatedon 11-0 6-2023 Absolute Lymph 0.66 X10 3/uL Low 0.83-4.51 [facility] Comment on above: Performed By: #### L 100.0100, L500.2500, L500.4100, L501.5200 ####[facility] [address] [place], [address] Absolute Neut 10.7 X10 3/uL High 2.0-7.7 [facility] Comment on above: Performed By: #### L 100.0100, L500.2500, L500.4100, L501.5200 ####[facility] [address] [place], [address] Basophils/100 WBC (Bld) 0.1 % Normal 0-1 [facility] Comment on above: Performed By: #### L 100.0100, L500.2500, L500.4100, L501.5200 ####[facility] [address] [place], [address] Eosinophils/100 WBC (Bld) 0.0 % Normal 0-5 [facility] Comment on above: Performed By: #### L 100.0100, L500.2500, L500.4100, L501.5200 ####[facility] [address] [place], [address] Erythrocyte distribution width (RBC) [Ratio] 14.0 % Normal 11.6-14.6 [facility] Comment on above: Performed By: #### L 100.0100, L500.2500, L500.4100, L501.5200 ####[facility] [address] [place], [address] Hematocrit (Bld) [Volume fraction] 37.3 % Low 40-54 [facility] Comment on above: Performed By: #### L 100.0100, L500.2500, L500.4100, L501.5200 ####[facility] [address] [place], [address] Hemoglobin (Bld) [Mass/Vol] 11.7 g/dL Low 13.0-16.5 [facility] Comment on above: Performed By: #### L 100.0100, L500.2500, L500.4100, L501.5200 ####[facility] [address] [place], [address] IG% 0.500 Normal 0.0-0.9 [facility] Comment on above: Result Comment: IG% - Immature Granulocytes (promyelocytes, myelocytes andmetamyelocytes) > 1% indicates that a LEFT SHIFT is Present. Performed By: #### L 100.0100, L500.2500, L500.4100, L501.5200 ####[facility] [address] [place], [address] Lymphocytes/100 WBC (Bld) 5.6 % Low 19-41 [facility] Comment on above: Performed By: #### L 100.0100, L500.2500, L500.4100, L501.5200 ####[facility] [address] [place], [address] MCH (RBC) [Entitic mass] 26.4 pg Low 27.0-32.0 [facility] Comment on above: Performed By: #### L 100.0100, L500.2500, L500.4100, L501.5200 ####[facility] [address] [place], [address] MCHC (RBC) [Mass/Vol] 31.4 g/dL Low 32-36 [facility] Comment on above: Performed By: #### L 100.0100, L500.2500, L500.4100, L501.5200 ####[facility] [address] [place], [address] MCV (RBC) [Entitic vol] 84.0 fL Normal 80-94 [facility] Comment on above: Performed By: #### L 100.0100, L500.2500, L500.4100, L501.5200 ####[facility] [address] [place], [address] Monocytes/100 WBC (Bld) 3.5 % Normal 0-10 [facility] Comment on above: Performed By: #### L 100.0100, L500.2500, L500.4100, L501.5200 ####[facility] [address] [place], [address] Neutrophils/100 WBC (Bld) 90.3 % High 47-70 [facility] Comment on above: Performed By: #### L 100.0100, L500.2500, L500.4100, L501.5200 ####[facility] [address] [place], [address] Nucleated RBC (Bld) [#/Vol] 0 10*3/uL Normal 0-5 [facility] Comment on above: Performed By: #### L 100.0100, L500.2500, L500.4100, L501.5200 ####[facility] [address] [place], [address] Platelet mean volume (Bld) [Entitic vol] 10.6 fL Normal 6.2-12.0 [facility] Comment on above: Performed By: #### L 100.0100, L500.2500, L500.4100, L501.5200 ####[facility] [address] [place], [address] Platelets (Bld) [#/Vol] 339 10*3/uL Normal 150-450 [facility] Comment on above: Performed By: #### L 100.0100, L500.2500, L500.4100, L501.5200 ####[facility] [address] [place], [address] RBC (Bld) [#/Vol] 4.44 10*6/uL Low 4.6-6.2 [facility] Comment on above: Performed By: #### L 100.0100, L500.2500, L500.4100, L501.5200 ####[facility] [address] [place], [address] RDW SD 43.2 fl Normal 35.1-43.9 [facility] Comment on above: Performed By: #### L 100.0100, L500.2500, L500.4100, L501.5200 ####[facility] [address] [place], [address] WBC (Bld) [#/Vol] 11.9 10*3/uL High 4.4-11.0 [facility] Comment on above: Performed By: #### L 100.0100, L500.2500, L500.4100, L501.5200 ####[facility] [address] [place], [address] Lipid Profileon 07-23-2024 Cholesterol [Mass/Vol] 114 mg/dL Normal 200 [facility] Comment on above: Result Comment: <200 mg/dL Desirable 200-240 mg/dL Borderline >240 mg/dL High Risk Performed By: #### L 100.0100, L500.2500, L500.4100, L501.5200 ####[facility] [address] [place], [address] Cholesterol in HDL [Mass/Vol] 47 mg/dL Normal [facility] Comment on above: Result Comment: The drugs N-Acetylcysteine and Metamizole may falselydepress this assay. Reference Range HDL <40 mg/dL Low HDL Cholesterol HDL >or= 60 mg/dL High HDL Cholesterol Performed By: #### L 100.0100, L500.2500, L500.4100, L501.5200 ####[facility] [address] [place], [address] Cholesterol in LDL [Mass/Vol] 56 mg/dL Normal 0-130 [facility] Comment on above: Performed By: #### L 100.0100, L500.2500, L500.4100, L501.5200 ####[facility] [address] [place], [address] Cholesterol in VLDL [Mass/Vol] 11 mg/dL Normal 5-40 [facility] Comment on above: Performed By: #### L 100.0100, L500.2500, L500.4100, L501.5200 ####[facility] [address] [place], [address] Triglyceride [Mass/Vol] 57 mg/dL Normal [facility] Comment on above: Result Comment: The drugs N-Acetylcysteine and Metamizole may falselydepress this assay.Serum Triglycerides Reference Interval Normal <150 mg/dL Borderline high 150 - 199 mg/dL High 200 - 499 mg/dL Very High > or = 500 mg/dL Performed By: #### L 100.0100, L500.2500, L500.4100, L501.5200 ####[facility] [address] [place], [address] Magnesiumon 07-23-2024 Magnesium [Mass/Vol] 2.0 mg/dL Normal 1.6-2.6 [facility] Comment on above: Performed By: #### L 100.0100, L500.2500, L500.4100, L501.5200 ####[facility] [address] [place], [address] RESPIRATORY PANEL MOLECULARo n 07-23-2024 RP PANEL Normal [facility] Comment on above: Performed By: #### M 100.638 ####[facility] [address] [place], [address] 12 Lead EKGon 07-22-2024 12 Lead EKG Normal [facility] BNP,B-Type NATRIURETIC PEPTI Suyapa 07-22-2024 Natriuretic peptide B (Bld) [Mass/Vol] 108.4 pg/mL High 0-100 [facility] Comment on above: Performed By: #### L 503.6620 ####[facility] [address] [place], [address] Basic Metabolic Profile (BMP )on 07-22-2024 BUN/CRE 34.7 RATIO High 10-20 [facility] Comment on above: Order Comment: 'TROP ' Serial specimen #1, #2 or #3: 1 Performed By: #### L 100.0100, L500.2500, L501.4020 ####[facility] [address] [place], [address] CA,Total 9.2 mg/dL Normal 8.5-10.1 [facility] Comment on above: Order Comment: 'TROP ' Serial specimen #1, #2 or #3: 1 Performed By: #### L 100.0100, L500.2500, L501.4020 ####[facility] [address] [place], [address] Chloride [Moles/Vol] 107 mmol/L Normal 98-107 [facility] Comment on above: Order Comment: 'TROP ' Serial specimen #1, #2 or #3: 1 Performed By: #### L 100.0100, L500.2500, L501.4020 ####[facility] [address] [place], [address] CO2 [Moles/Vol] 29.0 mmol/L Normal 21.0-32.0 [facility] Comment on above: Order Comment: 'TROP ' Serial specimen #1, #2 or #3: 1 Performed By: #### L 100.0100, L500.2500, L501.4020 ####[facility] [address] [place], [address] Creatinine [Mass/Vol] 0.92 mg/dL Normal 0.70-1.30 [facility] Comment on above: Order Comment: 'TROP ' Serial specimen #1, #2 or #3: 1 Result Comment: The validity of the calculated GFR GFRAA in patients over70 years has not been determined. Clinical correlation isessential. Performed By: #### L 100.0100, L500.2500, L501.4020 ####[facility] [address] [place], [address] EST GFR - AA 102 mL/min Normal >60 [facility] Comment on above: Order Comment: 'TROP ' Serial specimen #1, #2 or #3: 1 Result Comment: Afri can Faroese GFR Calc Performed By: #### L 100.0100, L500.2500, L501.4020 ####[facility] [address] [place], [address] GAP 4 Low 5-15 [facility] Comment on above: Order Comment: 'TROP ' Serial specimen #1, #2 or #3: 1 Performed By: #### L 100.0100, L500.2500, L501.4020 ####[facility] [address] [place], [address] GFR/1.73 sq M.predicted among non-blacks MDRD (S/P/Bld) [Vol rate/Area] 84 mL/min/{1.73_m2} Normal >60 [facility] Comment on above: Order Comment: 'TROP ' Serial specimen #1, #2 or #3: 1 Result Comment: Non- GFR Calc Performed By: #### L 100.0100, L500.2500, L501.4020 ####[facility] [address] [place], [address] Glucose [Mass/Vol] 78 mg/dL Normal 74-106 [facility] Comment on above: Order Comment: 'TROP ' Serial specimen #1, #2 or #3: 1 Performed By: #### L 100.0100, L500.2500, L501.4020 ####[facility] [address] [place], [address] Potassium [Moles/Vol] 3.2 mmol/L Low 3.5-5.1 [facility] Comment on above: Order Comment: 'TROP ' Serial specimen #1, #2 or #3: 1 Performed By: #### L 100.0100, L500.2500, L501.4020 ####[facility] [address] [place], [address] Sodium [Moles/Vol] 139 mmol/L Normal 136-145 [facility] Comment on above: Order Comment: 'TROP ' Serial specimen #1, #2 or #3: 1 Performed By: #### L 100.0100, L500.2500, L501.4020 ####[facility] [address] [place], [address] Urea nitrogen [Mass/Vol] 32 mg/dL High 7-18 [facility] Comment on above: Order Comment: 'TROP ' Serial specimen #1, #2 or #3: 1 Performed By: #### L 100.0100, L500.2500, L501.4020 ####[facility] [address] [place], [address] Bedside Glucoseon 07-22-2024 FINGERSTICK GLU 370 mg/dL High 74-106 [facility] Comment on above: Result Comment: URSULA GEMENT OF PATIENT CARE PER NURSING PROTOCOL Performed By: #### L 501.080 ####[facility] [address] [place], [address] FINGERSTICK GLU 206 mg/dL High 74-106 [facility] Comment on above: Result Comment: URSULA GEMENT OF PATIENT CARE PER NURSING PROTOCOL Performed By: #### L 501.080 ####[facility] [address] [place], [address] CBC W/Diff, Automatedon 11-0 Absolute Lymph 0.98 X10 3/uL Normal 0.83-4.51 [facility] Comment on above: Performed By: #### L 100.0100, L500.2500, L501.4020 ####[facility] [address] [place], [address] Absolute Neut 13.9 X10 3/uL High 2.0-7.7 [facility] Comment on above: Performed By: #### L 100.0100, L500.2500, L501.4020 ####[facility] [address] [place], [address] Basophils/100 WBC (Bld) 0.2 % Normal 0-1 [facility] Comment on above: Performed By: #### L 100.0100, L500.2500, L501.4020 ####[facility] [address] [place], [address] Eosinophils/100 WBC (Bld) 0.9 % Normal 0-5 [facility] Comment on above: Performed By: #### L 100.0100, L500.2500, L501.4020 ####[facility] [address] [place], [address] Erythrocyte distribution width (RBC) [Ratio] 14.1 % Normal 11.6-14.6 [facility] Comment on above: Performed By: #### L 100.0100, L500.2500, L501.4020 ####[facility] [address] [place], [address] Hematocrit (Bld) [Volume fraction] 40.3 % Normal 40-54 [facility] Comment on above: Performed By: #### L 100.0100, L500.2500, L501.4020 ####[facility] [address] [place], [address] Hemoglobin (Bld) [Mass/Vol] 12.6 g/dL Low 13.0-16.5 [facility] Comment on above: Performed By: #### L 100.0100, L500.2500, L501.4020 ####[facility] [address] [place], [address] IG% 0.500 Normal 0.0-0.9 [facility] Comment on above: Result Comment: IG% - Immature Granulocytes (promyelocytes, myelocytes andmetamyelocytes) > 1% indicates that a LEFT SHIFT is Present. Performed By: #### L 100.0100, L500.2500, L501.4020 ####[facility] [address] [place], [address] Lymphocytes/100 WBC (Bld) 6.0 % Low 19-41 [facility] Comment on above: Performed By: #### L 100.0100, L500.2500, L501.4020 ####[facility] [address] [place], [address] MCH (RBC) [Entitic mass] 26.6 pg Low 27.0-32.0 [facility] Comment on above: Performed By: #### L 100.0100, L500.2500, L501.4020 ####[facility] [id number] [place], [address] MCHC (RBC) [Mass/Vol] 31.3 g/dL Low 32-36 [facility] Comment on above: Performed By: #### L 100.0100, L500.2500, L501.4020 ####[facility] [id number] [place], [address] MCV (RBC) [Entitic vol] 85.2 fL Normal 80-94 [facility] Comment on above: Performed By: #### L 100.0100, L500.2500, L501.4020 ####[facility] [id number] [place], [address] Monocytes/100 WBC (Bld) 7.7 % Normal 0-10 [facility] Comment on above: Performed By: #### L 100.0100, L500.2500, L501.4020 ####[facility] [id number] [place], [address] Neutrophils/100 WBC (Bld) 84.7 % High 47-70 [facility] Comment on above: Performed By: #### L 100.0100, L500.2500, L501.4020 ####[facility] [id number] [place], [address] Nucleated RBC (Bld) [#/Vol] 0 10*3/uL Normal 0-5 [facility] Comment on above: Performed By: #### L 100.0100, L500.2500, L501.4020 ####[facility] [address] [place], [address] Platelet mean volume (Bld) [Entitic vol] 10.9 fL Normal 6.2-12.0 [facility] Comment on above: Performed By: #### L 100.0100, L500.2500, L501.4020 ####[facility] [address] [place], [address] Platelets (Bld) [#/Vol] 350 10*3/uL Normal 150-450 [facility] Comment on above: Performed By: #### L 100.0100, L500.2500, L501.4020 ####[facility] [address] [place], [address] RBC (Bld) [#/Vol] 4.73 10*6/uL Normal 4.6-6.2 [facility] Comment on above: Performed By: #### L 100.0100, L500.2500, L501.4020 ####[facility] [address] [place], [address] RDW SD 43.6 fl Normal 35.1-43.9 [facility] Comment on above: Performed By: #### L 100.0100, L500.2500, L501.4020 ####[facility] [address] [place], [address] WBC (Bld) [#/Vol] 16.4 10*3/uL High 4.4-11.0 [facility] Comment on above: Performed By: #### L 100.0100, L500.2500, L501.4020 ####[facility] [address] [place], [address] Chest 1 View (Portable)on Chest 1 View (Portable) Normal W [facility] Echo Complete W/ Contraston 07-22-2024 Echo Complete W/ Contrast Normal [facility] Emergency Department Summary on 07-22-2024 Emergency Department Summary Normal [facility] H AND P Exam - Hospitaliston 07-22-2024 H&P Exam - Hospitalist Normal [facility] L501.4020on 07-22-2024 TROPONIN-I HS 14 pg/mL Normal 3.0-78.0 [facility] Comment on above: Order Comment: 'TROP ' Serial specimen #1, #2 or #3: 1 Result Comment: Plea se Note: New Test Units and Gender Specific Reference Ranges. For more information see Policy Stat Procedure [place] High Sensitivity Troponin (TNIH) and attachments. Performed By: #### L 100.0100, L500.2500, L501.4020 ####[facility] [address] [place], [address] M100.678on 07-22-2024 M100.678 Pending SARS-CoV-2 (COVID 19) Negative INFLUENZA A Negative INFLUENZA B Negative RSV PCR Negative Normal [facility] Comment on above: Performed By: #### M 100.678 ####[facility] [address] [place], [address] Urinalysis, Completeon 07-22 BACTERIA RARE Normal None Seen [facility] Comment on above: Order Comment: CLEAN CATCH Performed By: #### L 400.0001 ####[facility] [address] [place], [address] EPI,SQUAMOUS 0-5 SEEN Normal 0-5 [facility] Comment on above: Order Comment: CLEAN CATCH Performed By: #### L 400.0001 ####[facility] [address] [place], [address] RBC 0-5 SEEN Normal 0-5 [facility] Comment on above: Order Comment: CLEAN CATCH Performed By: #### L 400.0001 ####[facility] [address] [place], [address] WBC 0-5 SEEN Normal 0-5 [facility] Comment on above: Order Comment: CLEAN CATCH Performed By: #### L 400.0001 ####[facility] [address] [place], [address] Mucus Ql (Urine sed) 0 SEEN Normal [facility] Comment on above: Order Comment: CLEAN CATCH Performed By: #### L 400.0001 ####[facility] [address] [place], [address] HBA1C (OUTSIDE)on 05-07-2024 HbA1c (Bld) [Mass fraction] 7.2 % [facility] Basic metabolic 2000 panelon 04-12-2024 Anion gap [Moles/Vol] 14 mmol/L Normal 8-15 [facility] Comment on above: Order Comment: Speci men Type: BLOOD SPECIMEN Ordering Facility: [facility] Address: [address] [place] [address] Performed By: #### 2 4321-2 #### [facility] CLIA [id number] 1 [place] [address] [place] Calcium [Mass/Vol] 9.6 mg/dL Normal 8.5-10.2 [facility] Comment on above: Order Comment: Speci men Type: BLOOD SPECIMEN Ordering Facility: [facility] Address: [address] [place] [address] Performed By: #### 2 4321-2 #### [facility] CLIA [id number] 1 [place] [address] [place] Chloride [Moles/Vol] 97 mmol/L Low 98-107 [facility] Comment on above: Order Comment: Speci men Type: BLOOD SPECIMEN Ordering Facility: [facility] Address: [address] [place] [address] Performed By: #### 2 4321-2 #### [facility] CLIA [id number] 1 [place] [address] [place] CO2 [Moles/Vol] 22 mmol/L Normal 22-30 [facility] Comment on above: Order Comment: Speci men Type: BLOOD SPECIMEN Ordering Facility: [facility] Address: [address] [place] [address] Performed By: #### 2 4321-2 #### [facility] CLIA [id number] 1 [place] [address] [place] Creatinine [Mass/Vol] 1.10 mg/dL Normal 0.73-1.22 [facility] Comment on above: Order Comment: Speci men Type: BLOOD SPECIMEN Ordering Facility: [facility] Address: [address] [place] [address] Performed By: #### 2 4321-2 #### [facility] CLIA [id number] [address] [place] [address] [place] Creatinine and Glomerular filtration rate.predicted panel (S/P/Bld) 68 mL/min/1.73m??? Normal >=60 [facility] Comment on above: Order Comment: Salvatore de la rosa Type: BLOOD SPECIMEN Ordering Facility: [facility] Address: [address] [place] [address] Result Comment: Racquel mated Glomerular Filtration Rate [...] GFR. Performed By: #### 2 4321-2 #### [facility] CLIA [id number] [address] [place] [address] [place] Glucose [Mass/Vol] 199 mg/dL High 74-99 [facility] Comment on above: Order Comment: Salvatore de la rosa Type: BLOOD SPECIMEN Ordering Facility: [facility] Address: [address] [place] [address] Result Comment: The [place] [employer] (ADA) provides guidance for cutoff [...] Standards of Medical Care in Diabetes 2016, [place] [employer]. Diabetes Care. 2016.39(Suppl 1). Performed By: #### 2 4321-2 #### [facility] CLIA [id number] [address] [place] [address] Potassium [Moles/Vol] 4.2 mmol/L Normal 3.7-5.1 [facility] Comment on above: Order Comment: Speci men Type: BLOOD SPECIMEN Ordering Facility: [facility] Address: [address] [place] [address] Performed By: #### 2 4321-2 #### [facility] CLIA [id number] [address] Sodium [Moles/Vol] 133 mmol/L Low 136-144 [facility] Comment on above: Order Comment: Speci men Type: BLOOD SPECIMEN Ordering Facility: [facility] Address: [address] [place] [address] Performed By: #### 2 4321-2 #### [facility] CLIA [id number] [address] Urea nitrogen [Mass/Vol] 27 mg/dL High 9-24 [facility] Comment on above: Order Comment: Speci men Type: BLOOD SPECIMEN Ordering Facility: [facility] Address: [address] [place] [address] Performed By: #### 2 4321-2 #### [facility] CLIA [id number] [address] CBC W Auto Differential pane l (Bld)on 04-12-2024 Basophils (Bld) [#/Vol] 0.06 10*3/uL Normal <0.11 [facility] Comment on above: Order Comment: Speci men Type: BLOOD SPECIMEN Ordering Facility: [facility] Address: [address] [place] [address] Performed By: #### 5 7021-8 #### [facility] CLIA [id number] [address] Basophils/100 WBC (Bld) 0.5 % Normal A [facility] Comment on above: Order Comment: Speci men Type: BLOOD SPECIMEN Ordering Facility: [facility] Address: [address] [place] [address] Performed By: #### 5 7021-8 #### [facility] CLIA [id number] [address] Differential cell count method Nom (Bld) Auto Normal [facility] Comment on above: Order Comment: Speci men Type: BLOOD SPECIMEN Ordering Facility: [facility] Address: [address] [place] [address] Performed By: #### 5 7021-8 #### [facility] CLIA [id number] [address] Eosinophils (Bld) [#/Vol] 0.39 10*3/uL Normal <0.46 [facility] Comment on above: Order Comment: Speci men Type: BLOOD SPECIMEN Ordering Facility: [facility] Address: [address] [place] [address] Performed By: #### 5 7021-8 #### [facility] CLIA [id number] [address] Eosinophils/100 WBC (Bld) 3.2 % Normal [facility] Comment on above: Order Comment: Speci men Type: BLOOD SPECIMEN Ordering Facility: [facility] Address: [address] [place] [address] Performed By: #### 5 7021-8 #### [facility] CLIA [id number] [address] Erythrocyte distribution width (RBC) [Ratio] 13.3 % Normal 11.5-15.0 [facility] Comment on above: Order Comment: Speci men Type: BLOOD SPECIMEN Ordering Facility: [facility] Address: [address] [place] [address] Performed By: #### 5 7021-8 #### [facility] CLIA [id number] [address] Hematocrit (Bld) [Volume fraction] 40.6 % Normal 39.0-51.0 [facility] Comment on above: Order Comment: Speci men Type: BLOOD SPECIMEN Ordering Facility: [facility] Address: [address] [place] [address] Performed By: #### 5 7021-8 #### [facility] CLIA [id number] [address] [place] Hemoglobin (Bld) [Mass/Vol] 13.4 g/dL Normal 13.0-17.0 [facility] Comment on above: Order Comment: Speci men Type: BLOOD SPECIMEN Ordering Facility: [facility] Address: [address] [place] [address] Performed By: #### 5 7021-8 #### [facility] CLIA [id number] 1 [place] [address] [place] Immature granulocytes (Bld) [#/Vol] 0.05 10*3/uL Normal <0.10 [facility] Comment on above: Order Comment: Speci men Type: BLOOD SPECIMEN Ordering Facility: [facility] Address: [address] [place] [address] Performed By: #### 5 7021-8 #### [facility] CLIA [id number] [address] [place] Immature granulocytes/100 WBC (Bld) 0.4 % Normal [facility] Comment on above: Order Comment: Speci men Type: BLOOD SPECIMEN Ordering Facility: [facility] Address: [address] [place] [address] Performed By: #### 5 7021-8 #### [facility] CLIA [id number] [address] [place] Lymphocytes (Bld) [#/Vol] 2.34 10*3/uL Normal 1.00-4.0 0 [facility] Comment on above: Order Comment: Speci men Type: BLOOD SPECIMEN Ordering Facility: [facility] Address: [address] [place] [address] Performed By: #### 5 7021-8 #### [facility] CLIA [id number] [address] [place] Lymphocytes/100 WBC (Bld) 19.1 % Normal [facility] Comment on above: Order Comment: Speci men Type: BLOOD SPECIMEN Ordering Facility: [facility] Address: [address] [place] [address] Performed By: #### 5 7021-8 #### [facility] CLIA [id number] [address] MCH (RBC) [Entitic mass] 28.4 pg Normal 26.0-34.0 [facility] Comment on above: Order Comment: Speci men Type: BLOOD SPECIMEN Ordering Facility: [facility] Address: [address] [place] [address] Performed By: #### 5 7021-8 #### [facility] CLIA [id number] [address] MCHC (RBC) [Mass/Vol] 33.0 g/dL Normal 30.5-36.0 [facility] Comment on above: Order Comment: Speci men Type: BLOOD SPECIMEN Ordering Facility: [facility] Address: [address] [place] [address] Performed By: #### 5 7021-8 #### [facility] CLIA [id number] [address] MCV (RBC) [Entitic vol] 86.0 fL Normal 80.0-100.0 [facility] Comment on above: Order Comment: Speci men Type: BLOOD SPECIMEN Ordering Facility: [facility] Address: [address] [place] [address] Performed By: #### 5 7021-8 #### [facility] CLIA [id number] [address] Monocytes (Bld) [#/Vol] 1.38 10*3/uL High <0.87 [facility] Comment on above: Order Comment: Speci men Type: BLOOD SPECIMEN Ordering Facility: [facility] Address: [address] [place] [address] Performed By: #### 5 7021-8 #### [facility] CLIA [id number] [address] Monocytes/100 WBC (Bld) 11.3 % Normal A [facility] Comment on above: Order Comment: Speci men Type: BLOOD SPECIMEN Ordering Facility: [facility] Address: [address] [place] [address] Performed By: #### 5 7021-8 #### [facility] CLIA [id number] [address] [place] Neutrophils (Bld) [#/Vol] 8.02 10*3/uL High 1.45-7.5 0 [facility] Comment on above: Order Comment: Speci men Type: BLOOD SPECIMEN Ordering Facility: [facility] Address: [address] [place] [address] Performed By: #### 5 7021-8 #### [facility] CLIA [id number] [address] Neutrophils/100 WBC (Bld) 65.5 % Normal [facility] Comment on above: Order Comment: Speci men Type: BLOOD SPECIMEN Ordering Facility: [facility] Address: [address] [place] [address] Performed By: #### 5 7021-8 #### [facility] CLIA [id number] [address] Nucleated RBC (Bld) [#/Vol] 10*3/uL Normal <0.01 [facility] Comment on above: Order Comment: Speci men Type: BLOOD SPECIMEN Ordering Facility: [facility] Address: [address] [place] [address] Performed By: #### 5 7021-8 #### [facility] CLIA [id number] [address] [place] Nucleated RBC/100 WBC (Bld) [Ratio] 0.0 /100 WBC Normal [facility] Comment on above: Order Comment: Speci men Type: BLOOD SPECIMEN Ordering Facility: [facility] Address: [address] [place] [address] Performed By: #### 5 7021-8 #### [facility] CLIA [id number] [address] [place] Platelet mean volume (Bld) [Entitic vol] 10.7 fL Normal 9.0-12.7 [facility] Comment on above: Order Comment: Speci men Type: BLOOD SPECIMEN Ordering Facility: [facility] Address: [address] [place] [address] Performed By: #### 5 7021-8 #### [facility] CLIA [id number] [address] Platelets (Bld) [#/Vol] 268 10*3/uL Normal 150-400 [facility] Comment on above: Order Comment: Speci men Type: BLOOD SPECIMEN Ordering Facility: [facility] Address: [address] [place] [address] Performed By: #### 5 7021-8 #### [facility] CLIA [id number] [address] RBC (Bld) [#/Vol] 4.72 10*6/uL Normal 4.20-6.00 [facility] Comment on above: Order Comment: Speci men Type: BLOOD SPECIMEN Ordering Facility: [facility] Address: [address] [place] [address] Performed By: #### 5 7021-8 #### [facility] CLIA [id number] [address] WBC (Bld) [#/Vol] 12.24 10*3/uL High 3.70-11.00 [facility] Comment on above: Order Comment: Speci men Type: BLOOD SPECIMEN Ordering Facility: [facility] Address: [address] [place] [address] Performed By: #### 5 7021-8 #### [facility] CLIA [id number] [address] ED PROV NOTEon 04-12-2024 ED PROV NOTE HNO ID: [id number] Author: MELVIN BINGHAM MD Service: Emergency Medicine [...] having hematuria since Sunday- was seen in [place] [facility] and urologist this week. Pt states [...] He went to the emergency department in [place] and was told to follow-up with urology outpatient. Patient had urology appointment in [place] on of this past week who planned for cystoscopy on April 29. They were told that if he had any new symptoms to go to the emergency department. Patient went back to the emergency department in [place] where they performed lab work that was negative for anemia. The patient is now reporting continued dizziness and headache. Patient inquiring if they can see urology for cystoscopy on a more urgent basis here at [facility]. Patient is well appearing in no [...] Speci men Type: URINE SPECIMEN Ordering Facility: [facility] Address: [address] [place] [address] Performed By: #### 2 4356-8 #### [facility] CLIA [id number] [address] [place] Bilirubin Ql (U) 1+ Abnormal Negative [facility] Comment on above: Order Comment: Speci men Type: URINE SPECIMEN Ordering Facility: [facility] Address: [address] [place] [address] Result Comment: Sugg est correlation with clinical findings and serum bilirubin if clinically indicated. Performed By: #### 2 4356-8 #### [facility] CLIA [id number] [address] [place] Clarity (Unsp spec) Cloudy Abnormal Clear [facility] Comment on above: Order Comment: Speci men Type: URINE SPECIMEN Ordering Facility: [facility] Address: [address] [place] [address] Performed By: #### 2 4356-8 #### [facility] CLIA [id number] [address] [place] Color (U) Yellow Normal Yellow [facility] Comment on above: Order Comment: Speci men Type: URINE SPECIMEN Ordering Facility: [facility] Address: [address] [place] [address] Performed By: #### 2 4356-8 #### [facility] CLIA [id number] [address] Glucose Test strip (U) [Mass/Vol] Trace Abnormal Negative [facility] Comment on above: Order Comment: Speci men Type: URINE SPECIMEN Ordering Facility: [facility] Address: [address] [place] [address] Performed By: #### 2 4356-8 #### [facility] CLIA [id number] [address] STATES [facility] Hemoglobin Ql (U) 3+ Abnormal Negative [facility] Comment on above: Order Comment: Speci men Type: URINE SPECIMEN Ordering Facility: [facility] Address: [address] [place] [address] Performed By: #### 2 4356-8 #### [facility] CLIA [id number] [address] [place] Ketones Ql (U) Trace Abnormal Negative [facility] Comment on above: Order Comment: Speci men Type: URINE SPECIMEN Ordering Facility: [facility] Address: [address] [place] [address] Performed By: #### 2 4356-8 #### [facility] CLIA [id number] [address] Leukocyte esterase Test strip Ql (U) Negative Normal Negative [facility] Comment on above: Order Comment: Speci men Type: URINE SPECIMEN Ordering Facility: [facility] Address: [address] [place] [address] Performed By: #### 2 4356-8 #### [facility] CLIA [id number] [address] [place] Nitrite Ql (U) Negative Normal Negative [facility] Comment on above: Order Comment: Speci men Type: URINE SPECIMEN Ordering Facility: [facility] Address: [address] [place] [address] Performed By: #### 2 4356-8 #### [facility] CLIA [id number] [address] pH (U) 6.0 [pH] Normal 5.0-8.0 [facility] Comment on above: Order Comment: Speci men Type: URINE SPECIMEN Ordering Facility: [facility] Address: [address] [place] [address] Performed By: #### 2 4356-8 #### [facility] CLIA [id number] [address] Protein (U) [Mass/Vol] 1+ Abnormal Negative [facility] Comment on above: Order Comment: Speci men Type: URINE SPECIMEN Ordering Facility: [facility] Address: [address] [place] [address] Performed By: #### 2 4356-8 #### [facility] CLIA [id number] [address] [place] [address] RBC LM.HPF (Urine sed) [#/Area] /[HPF] Abnormal 0-3 /HPF [facility] Comment on above: Order Comment: Speci men Type: URINE SPECIMEN Ordering Facility: [facility] Address: [address] [place] [address] Performed By: #### 2 4356-8 #### [facility] CLIA [id number] [address] Specific gravity (U) [Rel density] >=1.030 High 1.005-1.03 0 [facility] Comment on above: Order Comment: Speci men Type: URINE SPECIMEN Ordering Facility: [facility] Address: [address] [place] [address] Performed By: #### 2 4356-8 #### [facility] CLIA [id number] [address] Urobilinogen Ql (U) 0.2 EU/dL Normal 0.2 EU/d L, 1.0 EU/dL [facility] Comment on above: Order Comment: Speci men Type: URINE SPECIMEN Ordering Facility: [facility] Address: [address] [place] [id number] Performed By: #### 2 4356-8 #### [facility] CLIA [id number] [address] WBC LM.HPF (Urine sed) [#/Area] 6-10 /HPF Abnormal 0-5 /HPF [facility] Comment on above: Order Comment: Speci men Type: URINE SPECIMEN Ordering Facility: [facility] Address: [address] [place] [id number] Performed By: #### 2 4356-8 #### [facility] CLIA [id number] [address] [place] [id number] [facility] XR Chest PA and Lateralon IMPRESSION: No developing abnormality or acute process Manager Sourcing: BERNIE Transcribe Date/Time: Feb 05 2024 8:15A Dictated by : TRES CARSON MD This examination was interpreted and the report reviewed and electronically signed by: TRES CARSON MD on Feb 05 2024 8:16AM [facility] [email or web address] DIVISION OF RADIOLOGY * * *Final Report* [...] change and osteophytosis. DIVISION OF RADIOLOGY Provider, [facility] - 02/05/2024 * * *Final Report* [...] IMPRESSION: No developing abnormality or acute process Manager Sourcing: BERNIE Transcribe Date/Time: Feb 05 2024 8:15A Dictated by : TRES CARSON MD This examination was interpreted and the report reviewed and electronically signed by: TRES CARSON MD on Feb 05 2024 8:16AM EST [facility] XR Chest PA and LateralOrder ed By: [facility] Provider on 02-05-2024 [facility] CBC W Auto Differential pane l (Bld)on 02-04-2024 Basophils (Bld) [#/Vol] 0.05 10*3/uL [facility] Basophils/100 WBC (Bld) 0.4 % [facility] Differential cell count method Nom (Bld) Auto [facility] Eosinophils (Bld) [#/Vol] 0.34 10*3/uL [facility] Eosinophils/100 WBC (Bld) 3.0 % [facility] Erythrocyte distribution width (RBC) [Ratio] 12.9 % 11.5 - 15.0 % [facility] Hematocrit (Bld) [Volume fraction] 41.9 % 39.0 - 51.0 % [facility] Hemoglobin (Bld) [Mass/Vol] 13.5 g/dL 13.0 - 17.0 g/dL [facility] Immature granulocytes (Bld) [#/Vol] 0.05 10*3/uL [facility] Immature granulocytes/100 WBC (Bld) 0.4 % [facility] Interpretation and review of laboratory results Abnormal [facility] Lymphocytes (Bld) [#/Vol] 1.59 10*3/uL [facility] Lymphocytes/100 WBC (Bld) 14.2 % [facility] MCH (RBC) [Entitic mass] 28.4 pg 26. 0 - 34.0 pg [facility] MCHC (RBC) [Mass/Vol] 32.2 g/dL 30.5 - 36.0 g/dL [facility] MCV (RBC) [Entitic vol] 88.2 fL 80.0 - 100.0 fL [facility] Monocytes (Bld) [#/Vol] 1.24 10*3/uL High [facility] Monocytes/100 WBC (Bld) 11.1 % [facility] [facility] (Bld[facility] [#/Vol] 7.91 10*3/uL [facility] Neutrophils/100 WBC (Bld) 70.9 % [facility] Nucleated RBC (Bld) [#/Vol] [facility] Nucleated RBC/100 WBC (Bld) [Ratio] 0.0 % /100 WBC [facility] Platelet mean volume (Bld) [Entitic vol] 11.4 fL 9.0 - 12.7 fL [facility] Platelets (Bld) [#/Vol] 256 10*3/uL [facility] RBC (Bld) [#/Vol] 4.75 10*6/uL 4.20 - 6.00 m/uL [facility] WBC (Bld) [#/Vol] 11.18 10*3/uL [facility] XR Chest PA and Lateralon Radiology Study observation (narrative) [facility] Absolute lymphocyte countOrd ered By: Tre Johnson on 09-22-2023 Lymphocytes Auto (Unsp spec) [#/Vol] 1.76 10*3/uL 0.83-4.51 [facility] Basophil percentageOrdered B y: Tre Johnson on 09-22-2023 Basophils/100 WBC (Bld) 0.4 % 0-1 [facility] Chloride [Moles/Vol] 106 mmol/L 98-107 [facility] Eosinophils/100 WBC (Bld) 3.4 % 0-5 [facility] Glucose [Mass/Vol] 168 mg/dL 74-106 [facility] Comment on above: Fasting Glucose resu lt greater than or equal to 126 mg/dL suggests DIABETES MELLITUS per A.D.A. criteria. Neutrophils (Bld) [#/Vol] 8.5 10*3/uL 2.0-7.7 [facility] Neutrophils/100 WBC (Bld) 71.2 % 47-70 [facility] Potassium [Moles/Vol] 4.0 mmol/L 3.5-5.1 [facility] Sodium [Moles/Vol] 137 mmol/L 136-145 [facility] WBC (Bld) [#/Vol] 12.0 10*3/uL 4.4-11.0 [facility] Blood erythrocytes count (nu mber/volume)Ordered By: Tre Johnson on 09-22-2023 RBC (Bld) [#/Vol] 5.22 10*6/uL 4.6-6.2 [facility] Blood hemoglobin measurement (mass/volume)Ordered By: Tre Johnson on 09-22-2023 Hemoglobin (Bld) [Mass/Vol] 14.1 g/dL 13.0-16.5 [facility] Blood lymphocytes/100 leukoc ytesOrdered By: Tre Johnson on 09-22-2023 Lymphocytes/100 WBC (Bld) 14.7 % 19-41 [facility] Blood monocytes/100 leukocyt esOrdered By: Tre Johnson on 09-22-2023 Monocytes/100 WBC (Bld) 9.9 % 0-10 [facility] Blood platelet mean volumeOr dered By: Tre Johnson on 09-22-2023 Platelet mean volume (Bld) [Entitic vol] 10.9 fL 6.2-12.0 [facility] Determination of erythrocyte mean corpuscular volume (MCV)Ordered By: Tre Johnson on 09-22-2023 MCV (RBC) [Entitic vol] 83.5 fL 80-94 [facility] Hematocrit Auto (Bld) [Volum e fraction]Ordered By: Tre Johnson on 09-22-2023 Hematocrit (Bld) [Volume fraction] 43.6 % 40-54 [facility] Laboratory - Chemistry and C hemistry - challengeOrdered By: Tre Johnson on 09-22-2023 CO2 [Moles/Vol] 25.0 mmol/L 21.0-32.0 [facility] Urea nitrogen/Creatinine [Mass ratio] 16.8 mg/mg 10-20 [facility] Laboratory - Hematology and Cell countsOrdered By: Tre Johnson on 09-22-2023 Erythrocyte distribution width (RBC) [Entitic vol] 43.0 fL 35.1-43.9 [facility] Erythrocyte distribution width (RBC) [Ratio] 14.2 % 11.6-14.6 [facility] Immature granulocytes/100 WBC (Bld) 0.400 % 0.0-0.9 [facility] Comment on above: IG% - Immature Granu locytes (promyelocytes, myelocytes and metamyelocytes) > 1% indicates that a LEFT SHIFT is Present. MCH (RBC) [Entitic mass] 27.0 pg 27.0-32.0 [facility] Nucleated RBC/100 WBC (Bld) [Ratio] 0 % 0-5 [facility] MCHC Auto (RBC) [Mass/Vol]Or dered By: Tre Johnson on 09-22-2023 MCHC (RBC) [Mass/Vol] 32.3 g/dL 32-36 [facility] No Panel InformationOrdered By: Tre Johnson on 09-22-2023 Troponin I High Sensitivity 9 pg/mL 3.0-78.0 [facility] Comment on above: Please Note: New [place] t Units and Gender Specific Reference Ranges. For more information see Policy Stat Procedure [place] High Sensitivity Troponin (TNIH) and attachments. Estimated Creatinine Clearance Calc 63.26 ml/min [facility] Estimated GFR (MDRD) Amer 86 mL/min >60 [facility] Comment on above: GFR Calc Estimated GFR (MDRD) Non-Af Amer 71 mL/min >60 [facility] Comment on above: Non- GFR Calc Platelets bldOrdered By: Tasih Johnson on 09-22-2023 Platelets (Bld) [#/Vol] 210 10*3/uL 150-450 [facility] Comment on above: NO PLATELET CLUMPS Serum or plasma calcium nahomy urement (mass/volume)Ordered By: Tre Johnson on 09-22-2023 Calcium [Mass/Vol] 9.4 mg/dL 8.5-10.1 [facility] Serum or plasma creatinine m easurement (mass/volume)Ordered By: Tre Johnson on 09-22-2023 Creatinine [Mass/Vol] 1.07 mg/dL 0.70-1.30 [facility] Comment on above: The validity of the calculated GFR & GFRAA in patients over 70 years has not been determined. Clinical correlation is essential. Serum or plasma urea nitroge n measurement (mass/volume)Ordered By: Tre Johnson on 09-22-2023 Urea nitrogen [Mass/Vol] 18 mg/dL 7-18 [facility] Thin prep Papanicolaou smear with manual screeningOrdered By: Tre Johnson on 09-22-2023 Thin prep Papanicolaou smear with manual screening 6 5-15 [facility] XR Chest PA and Lateralon IMPRESSION: Diffuse coarsening of the lung markings, with areas of linear atelectasis or fibrosis. Stable Cardiomegaly Manager Sourcing: BERNIE Transcribe Date/Time: Sep 11 2023 12:08P Dictated by : TRES CARSON MD This examination was interpreted and the report reviewed and electronically signed by: TRES CARSON MD on Sep 11 2023 12:10PM [facility] [[email or web address] DIVISION OF RADIOLOGY * * *Final Report* [...] Multilevel degenerative change. DIVISION OF RADIOLOGY Provider[facility] * * *Final Report* * [...] of linear atelectasis or fibrosis. Stable Cardiomegaly Manager Sourcing: BERNIE Transcribe Date/Time: Sep 11 2023 12:08P Dictated by : TRES CARSON MD This examination was interpreted and the report reviewed and electronically signed by: TRES CARSON MD on Sep 11 2023 12:10PM EST [facility] XR Chest PA and LateralOrder ed By: Ccf Provider on 09-11-2023 [facility] XR Chest PA and Lateralon Radiology Study observation (narrative) [facility] XR Pelvis and Hip - right AP and Lateral frogon 07-25-2023 IMPRESSION: Minimal right hip osteoarthritis without acute osseous abnormality. Manager Sourcing: BERNIE Transcribe Date/Time: Jul 25 2023 9:21A Dictated by : CARINA IGLESIAS DO This examination was interpreted and the report reviewed and electronically signed by: CARINA IGLESIAS DO on Jul 25 2023 9:22AM [facility] [[email or web address] DIVISION OF RADIOLOGY * * *Final Report* [...] Pelvic enthesopathy. DIVISION OF RADIOLOGY Provider, Dara Barahona - 07/25/2023 * * *Final Report* * [...] right hip osteoarthritis without acute osseous abnormality. Manager Sourcing: BERNIE Transcribe Date/Time: Jul 25 2023 9:21A Dictated by : CARINA IGLESIAS DO This examination was interpreted and the report reviewed and electronically signed by: CARINA IGLESIAS DO on Jul 25 2023 9:22AM EST [facility] XR Pelvis and Hip - right AP and Lateral frogOrdered By: Cc Provider on 07-25-2023 [facility] XR Pelvis and Hip - right AP and Lateral frogon 07-23-2023 Radiology Study observation (narrative) [facility] XR CHEST 2V FRONTAL/LATon [facility] XR Chest PA and Lateralon IMPRESSION: Question of some mild bilateral perihilar infiltrate. Manager Sourcing: BERNIE Transcribe Date/Time: Jun 09 2023 12:07P Dictated by : MAN ROSADO DO This examination was interpreted and the report reviewed and electronically signed by: MAN ROSADO DO on Jun 09 2023 12:08PM [facility] [[email or web address]] DIVISION OF RADIOLOGY * * *Final Report* [...] soft tissues: Unremarkable. DIVISION OF RADIOLOGY Provider, [facility] - 06/09/2023 * * *Final Report* * [...] Question of some mild bilateral perihilar infiltrate. Manager Sourcing: BERNIE Transcribe Date/Time: Jun 09 2023 12:07P Dictated by : MAN ROSADO DO This examination was interpreted and the report reviewed and electronically signed by: MAN ROSADO DO on Jun 09 2023 12:08PM EST [facility] Radiology Study observation (narrative) [facility] XR Chest PA and LateralOrder ed By: Ccf Provider on 06-09-2023 [facility] Absolute lymphocyte countOrd ered By: Mani Esquivel on 03-31-2023 Lymphocytes Auto (Unsp spec) [#/Vol] 1.83 10*3/uL 0.83-4.51 [facility] Basophil percentageOrdered B y: Mani Esquivel on 03-31-2023 Basophils/100 WBC (Bld) 0.5 % 0-1 [facility] Bilirubin [Mass/Vol] 0.30 mg/dL 0.20-1.00 [facility] Comment on above: For patients on eltr ombopag therapy, use of Dimension [place] TBIL is not recommended. Chloride [Moles/Vol] 103 mmol/L 98-107 [facility] Eosinophils/100 WBC (Bld) 3.4 % 0-5 [facility] Glucose [Mass/Vol] 81 mg/dL 74-106 [facility] Neutrophils (Bld) [#/Vol] 8.5 10*3/uL 2.0-7.7 [facility] Neutrophils/100 WBC (Bld) 68.4 % 47-70 [facility] Potassium [Moles/Vol] 4.6 mmol/L 3.5-5.1 [facility] Comment on above: Moderate Hemolysis, Result may be falsely increased. Protein [Mass/Vol] 7.2 g/dL 6.4-8.2 [facility] Sodium [Moles/Vol] 135 mmol/L 136-145 [facility] WBC (Bld) [#/Vol] 12.4 10*3/uL 4.4-11.0 [facility] Blood erythrocytes count (nu mber/volume)Ordered By: Mani Esquivel on 03-31-2023 RBC (Bld) [#/Vol] 4.74 10*6/uL 4.6-6.2 [facility] Blood hemoglobin measurement (mass/volume)Ordered By: Mani Esquivel on 03-31-2023 Hemoglobin (Bld) [Mass/Vol] 13.6 g/dL 13.0-16.5 [facility] Blood lymphocytes/100 leukoc ytesOrdered By: Mani Esquivel on 03-31-2023 Lymphocytes/100 WBC (Bld) 14.8 % 19-41 [facility] Blood manual differential co mment interpretation (narrative result)Ordered By: Mani Esquivel on 03-31-2023 Manual differential comment Rey (Bld) [Interp] SCANNED [facility] Comment on above: MONOCYTOSIS Blood monocytes/100 leukocyt esOrdered By: Mani Esquivel on 03-31-2023 Monocytes/100 WBC (Bld) 12.5 % 0-10 [facility] Blood platelet mean volumeOr dered By: Mani Esquivel on 03-31-2023 Platelet mean volume (Bld) [Entitic vol] 11.0 fL 6.2-12.0 [facility] Determination of erythrocyte mean corpuscular volume (MCV)Ordered By: Mani Esquivel on 03-31-2023 MCV (RBC) [Entitic vol] 88.2 fL 80-94 [facility] Direct bilirubinOrdered By: Mani Esquivel on 03-31-2023 Bilirubin.direct [Mass/Vol] 0.07 mg/dL 0.00-0.30 [facility] Hematocrit Auto (Bld) [Volum e fraction]Ordered By: Mani Esquivel on 03-31-2023 Hematocrit (Bld) [Volume fraction] 41.8 % 40-54 [facility] Laboratory - Chemistry and C hemistry - challengeOrdered By: Mani Esquivel on 03-31-2023 ALP [Catalytic activity/Vol] 72 U/L 45-117 [facility] ALT [Catalytic activity/Vol] 32 U/L 16-61 [facility] CO2 [Moles/Vol] 25.0 mmol/L 21.0-32.0 [facility] Globulin (S) [Mass/Vol] 3.8 g/dL 2.2-4.2 [facility] Lipase [Catalytic activity/Vol] 433 U/L 13-75 [facility] Comment on above: Please note:LIPASE r evised reference range effective 22. New Lipase methodology. Expected to produce lower values than the previous assay method. NEW Reference Range: 13 - 75 U/L Urea nitrogen/Creatinine [Mass ratio] 14.8 mg/mg 10-20 [facility] Laboratory - Hematology and Cell countsOrdered By: Mani Esquivel on 03-31-2023 Erythrocyte distribution width (RBC) [Entitic vol] 42.4 fL 35.1-43.9 [facility] Erythrocyte distribution width (RBC) [Ratio] 13.1 % 11.6-14.6 [facility] Immature granulocytes/100 WBC (Bld) 0.400 % 0.0-0.9 [facility] Comment on above: IG% - Immature Granu locytes (promyelocytes, myelocytes and metamyelocytes) > 1% indicates that a LEFT SHIFT is Present. MCH (RBC) [Entitic mass] 28.7 pg 27.0-32.0 [facility] Nucleated RBC/100 WBC (Bld) [Ratio] 0 % 0-5 [facility] MCHC Auto (RBC) [Mass/Vol]Or dered By: Mani Esquivel on 03-31-2023 MCHC (RBC) [Mass/Vol] 32.5 g/dL 32-36 [facility] No Panel InformationOrdered By: Mani Esquivel on 03-31-2023 Estimated GFR (MDRD) Amer 51 mL/min >60 [facility] Comment on above: GFR Calc Estimated GFR (MDRD) Non-Af Amer 42 mL/min >60 [facility] Comment on above: Non- GFR Calc Platelets bldOrdered By: Rashel Esquivel on 03-31-2023 Platelets (Bld) [#/Vol] 249 10*3/uL 150-450 [facility] Review by pathologistOrdered By: Mani Esquivel on 03-31-2023 Pathologist review Rey (Unsp spec) [Interp] Tamara bernard [facility] Pathologist review Rey (Unsp spec) [Interp] Reviewed [facility] Comment on above: Previous reported re sult: Tamara bernard Edited by: RGOANTONIETTA on 04/03/23:1218Leukocytosis.Clinical correlation necessary.Callum Arteaga M.D. 04/03/23 AMENDED REPORT 04/03/23 1218 PATH REV previously reported as: Tamara bernard Serum or plasma albumin nahomy urement (mass/volume)Ordered By: Mani Esquivel on 03-31-2023 Albumin [Mass/Vol] 3.4 g/dL 3.2-5.0 [facility] Serum or plasma calcium nahomy urement (mass/volume)Ordered By: Mani Esquivel on 03-31-2023 Calcium [Mass/Vol] 8.7 mg/dL 8.5-10.1 [facility] Serum or plasma creatinine m easurement (mass/volume)Ordered By: Mani Esquivel on 03-31-2023 Creatinine [Mass/Vol] 1.69 mg/dL 0.70-1.30 [facility] Comment on above: The validity of the calculated GFR & GFRAA in patients over 70 years has not been determined. Clinical correlation is essential. Serum or plasma urea nitroge n measurement (mass/volume)Ordered By: Mani Esquivel on 03-31-2023 Urea nitrogen [Mass/Vol] 25 mg/dL 04-03 [facility] Thin prep Papanicolaou smear with manual screeningOrdered By: Mani Esquivel on 03-31-2023 Thin prep Papanicolaou smear with manual screening 27 U/L [facility] Comment on above: Moderate Hemolysis, Result may be falsely increased. Thin prep Papanicolaou smear with manual screening 7 01-29 [facility] CBC W Auto Differential pane l (Bld)on 03-02-2023 Basophils (Bld) [#/Vol] 0.06 10*3/uL <0.11 k/uL [facility] Basophils/100 WBC (Bld) 0.5 % [facility] Differential cell count method Nom (Bld) Auto [facility] Eosinophils (Bld) [#/Vol] 0.44 10*3/uL <0.46 k/ uL [facility] Eosinophils/100 WBC (Bld) 4.0 % [facility] Erythrocyte distribution width (RBC) [Ratio] 13.3 % 11.5 - 15.0 % [facility] Hematocrit (Bld) [Volume fraction] 44.9 % 39.0 - 51.0 % [facility] Hemoglobin (Bld) [Mass/Vol] 14.4 g/dL 13.0 - 17.0 g/dL [facility] Immature granulocytes (Bld) [#/Vol] 0.04 10*3/uL <0.10 k/uL [facility] Immature granulocytes/100 WBC (Bld) 0.4 % [facility] Lymphocytes (Bld) [#/Vol] 2.03 10*3/uL 1. 00 - 4.00 k/uL [facility] Lymphocytes/100 WBC (Bld) 18.5 % [facility] MCH (RBC) [Entitic mass] 28.7 pg 26. 0 - 34.0 pg [facility] MCHC (RBC) [Mass/Vol] 32.1 g/dL 30.5 - 36.0 g/dL [facility] MCV (RBC) [Entitic vol] 89.4 fL 80.0 - 100.0 fL [facility] Monocytes (Bld) [#/Vol] 1.22 10*3/uL High <0.87 k/uL [facility] Monocytes/100 WBC (Bld) 11.1 % [facility] Neutrophils (Bld) [#/Vol] 7.19 10*3/uL 1. 45 - 7.50 k/uL [facility] Neutrophils/100 WBC (Bld) 65.5 % [facility] Nucleated RBC (Bld) [#/Vol] <0.01 k/uL [facility] Nucleated RBC/100 WBC (Bld) [Ratio] 0.0 /100 WBC [facility] Platelet mean volume (Bld) [Entitic vol] 11.5 fL 9.0 - 12.7 fL [facility] Platelets (Bld) [#/Vol] 259 10*3/uL 150 - 400 k/uL [facility] RBC (Bld) [#/Vol] 5.02 10*6/uL 4.20 - 6.00 m/uL [facility] WBC (Bld) [#/Vol] 10.98 10*3/uL 3.70 - 11.00 k/uL [facility] Absolute lymphocyte countOrd ered By: Dr. Taylor on 03-01-2023 Lymphocytes Auto (Unsp spec) [#/Vol] 2.50 10*3/uL 0.83-4.51 [facility] Basophil percentageOrdered B y: Dr. Taylor on 03-01-2023 Basophils/100 WBC (Bld) 0.5 % 0-1 [facility] Bilirubin [Mass/Vol] 0.30 mg/dL 0.20-1.00 [facility] Comment on above: For patients on eltr ombopag therapy, use of Dimension [place] TBIL is not recommended. Chloride [Moles/Vol] 101 mmol/L 98-107 [facility] Eosinophils/100 WBC (Bld) 3.2 % 0-5 [facility] Glucose [Mass/Vol] 132 mg/dL 74-106 [facility] Comment on above: Fasting Glucose resu lt greater than or equal to 126 mg/dL suggests DIABETES MELLITUS per A.D.A. criteria. Neutrophils (Bld) [#/Vol] 7.2 10*3/uL 2.0-7.7 [facility] Neutrophils/100 WBC (Bld) 62.9 % 47-70 [facility] Potassium [Moles/Vol] 3.8 mmol/L 3.5-5.1 [facility] Protein [Mass/Vol] 7.1 g/dL 6.4-8.2 [facility] Sodium [Moles/Vol] 133 mmol/L 136-145 [facility] WBC (Bld) [#/Vol] 11.4 10*3/uL 4.4-11.0 [facility] Basophil percentage 0-5 SEEN /hpf 0-5 [facility] Bilirubin Test strip Ql (U)O rdered By: Dr. Taylor on 03-01-2023 Bilirubin Ql (U) Negative Negative [facility] Blood erythrocytes count (nu mber/volume)Ordered By: Dr. Taylor on 03-01-2023 RBC (Bld) [#/Vol] 4.89 10*6/uL 4.6-6.2 [facility] Blood hemoglobin measurement (mass/volume)Ordered By: Dr. Taylor on 03-01-2023 Hemoglobin (Bld) [Mass/Vol] 14.0 g/dL 13.0-16.5 [facility] Blood lymphocytes/100 leukoc ytesOrdered By: Dr. Taylor on 03-01-2023 Lymphocytes/100 WBC (Bld) 21.9 % 19-41 [facility] Blood monocytes/100 leukocyt esOrdered By: Dr. Taylor on 03-01-2023 Monocytes/100 WBC (Bld) 11.2 % 0-10 [facility] Blood platelet mean volumeOr dered By: Dr. Taylor on 03-01-2023 Platelet mean volume (Bld) [Entitic vol] 10.9 fL 6.2-12.0 [facility] Determination of erythrocyte mean corpuscular volume (MCV)Ordered By: Dr. Taylor on 03-01-2023 MCV (RBC) [Entitic vol] 86.1 fL 80-94 [facility] Hematocrit Auto (Bld) [Volum e fraction]Ordered By: Dr. Taylor on 03-01-2023 Hematocrit (Bld) [Volume fraction] 42.1 % 40-54 [facility] Hyaline casts LM.LPF (Urine sed) [#/Area]Ordered By: Dr. Taylor on 03-01-2023 Hyaline casts (Urine sed) [#/Area] 0 /[LPF] 0-5 [facility] Ketones Test strip Ql (U)Ord ered By: Dr. Taylor on 03-01-2023 Ketones Ql (U) 5 mg/dl Negative [facility] Laboratory - Chemistry and C hemistry - challengeOrdered By: Dr. Taylor on 03-01-2023 ALP [Catalytic activity/Vol] 73 U/L 45-117 [facility] ALT [Catalytic activity/Vol] 33 U/L 16-61 [facility] CO2 [Moles/Vol] 24.0 mmol/L 21.0-32.0 [facility] Globulin (S) [Mass/Vol] 3.6 g/dL 2.2-4.2 [facility] Lipase [Catalytic activity/Vol] 82 U/L 13-75 [facility] Comment on above: Please note:LIPASE r evised reference range effective 22. New Lipase methodology. Expected to produce lower values than the previous assay method. NEW Reference Range: 13 - 75 U/L Urea nitrogen/Creatinine [Mass ratio] 24.8 mg/mg 10-20 [facility] Laboratory - Hematology and Cell countsOrdered By: Dr. Taylor on 03-01-2023 Erythrocyte distribution width (RBC) [Entitic vol] 41.3 fL 35.1-43.9 [facility] Erythrocyte distribution width (RBC) [Ratio] 13.2 % 11.6-14.6 [facility] Immature granulocytes/100 WBC (Bld) 0.300 % 0.0-0.9 [facility] Comment on above: IG% - Immature Granu locytes (promyelocytes, myelocytes and metamyelocytes) > 1% indicates that a LEFT SHIFT is Present. MCH (RBC) [Entitic mass] 28.6 pg 27.0-32.0 [facility] Nucleated RBC/100 WBC (Bld) [Ratio] 0 % 0-[address] [facility] [Mass/Vol]Or dered By: Dr. Taylor on 03-01-2023 MCHC (RBC) [Mass/Vol] 33.3 g/dL 32-36 [facility] Mucus LM Ql (Urine sed)Order ed By: Dr. Taylor on 03-01-2023 Mucus Ql (Urine sed) 0 SEEN /hpf [facility] Nitrite Test strip Ql (U)Ord ered By: Dr. Taylor on 03-01-2023 Nitrite Ql (U) Negative Negative [facility] No Panel InformationOrdered By: Dr. Taylor on 03-01-2023 Estimated Creatinine Clearance Calc 48.80 ml/min [facility] Estimated GFR (MDRD) Amer 62 mL/min >60 [facility] Comment on above: GFR Calc Estimated GFR (MDRD) Non-Af Amer 52 mL/min >60 [facility] Comment on above: Non- GFR Calc Troponin I High Sensitivity 7 pg/mL 3.0-78.0 [facility] Comment on above: Please Note: New [place] t Units and Gender Specific Reference Ranges. For more information see Policy Stat Procedure [place] High Sensitivity Troponin (TNIH) and attachments. Platelets bldOrdered By: Dr. Taylor on 03-01-2023 Platelets (Bld) [#/Vol] 266 10*3/uL 150-450 [facility] Protein Test strip Ql (U)Ord ered By: Dr. Taylor on 03-01-2023 Protein Ql (U) 15 mg/dl Negative [facility] Serum or plasma albumin nahomy urement (mass/volume)Ordered By: Dr. Taylor on 03-01-2023 Albumin [Mass/Vol] 3.5 g/dL 3.2-5.0 [facility] Serum or plasma albumin/glob ulin mass ratioOrdered By: Dr. Taylor on 03-01-2023 Albumin/Globulin [Mass ratio] 1.0 {ratio} 0.9-2.4 [facility] Serum or plasma calcium nahomy urement (mass/volume)Ordered By: Dr. Taylor on 03-01-2023 Calcium [Mass/Vol] 9.1 mg/dL 8.5-10.1 [facility] Serum or plasma creatinine m easurement (mass/volume)Ordered By: Dr. Taylor on 03-01-2023 Creatinine [Mass/Vol] 1.41 mg/dL 0.70-1.30 [facility] Comment on above: The validity of the calculated GFR & GFRAA in patients over 70 years has not been determined. Clinical correlation is essential. Serum or plasma urea nitroge n measurement (mass/volume)Ordered By: Dr. Taylor on 03-01-2023 Urea nitrogen [Mass/Vol] 35 mg/dL 7-18 [facility] Squamous epithelial cells de tection in urine sediment by light microscopyOrdered By: Dr. Taylor on 03-01-2023 Epithelial cells.squamous LM Ql (Urine sed) 0-5 SEEN /hpf 0-5 [facility] Thin prep Papanicolaou smear with manual screeningOrdered By: Dr. Taylor on 03-01-2023 Thin prep Papanicolaou smear with manual screening 16 U/L 15-37 [facility] Thin prep Papanicolaou smear with manual screening 8 5-15 [facility] Urine blood detectionOrdered By: Dr. Taylor on 03-01-2023 RBC Ql (U) 50 /ul Negative [facility] RBC Ql (U) 0-5 SEEN /hpf 0-5 [facility] Urine clarityOrdered By: Dr. Taylor on 03-01-2023 Clarity (U) Clear Clear [facility] Urine color determinationOrd ered By: Dr. Taylor on 03-01-2023 Color (U) Yellow Yellow [facility] Urine glucose detectionOrder ed By: Dr. Taylor on 03-01-2023 Glucose Ql (U) 250 mg/dl Normal [facility] Urine leukocyte esterase det ection by dipstickOrdered By: Dr. Taylor on 03-01-2023 Leukocyte esterase Test strip Ql (U) Negative Negative [facility] Urine pHOrdered By: Dr. Katlyn burns on 03-01-2023 pH (U) 5.0 [pH] 5.0 - 8.0 [facility] Urine sediment bacteria coun t by microscopy (number/high power field)Ordered By: Dr. Taylor on 03-01-2023 Bacteria LM.HPF (Urine sed) [#/Area] 0 /[HPF] None Seen [facility] Urine specific gravity measu rementOrdered By: Dr. Taylor on 03-01-2023 Specific gravity (U) [Rel density] 1.025 1.002-1.03 0 [facility] Urobilinogen Auto test strip Ql (U)Ordered By: Dr. Taylor on 03-01-2023 Urobilinogen Ql (U) Normal mg/dl Normal [facility] Glucose Glucometer (BldC) [M ass/Vol]Ordered By: Mani Esquivel on 02-25-2023 Glucose [Mass/Vol] 132 mg/dL 74-106 [facility] Comment on above: MANAGEMENT OF PATIEN T CARE PER NURSING PROTOCOL Absolute lymphocyte countOrd ered By: Mani Esquivel on 02-24-2023 Lymphocytes Auto (Unsp spec) [#/Vol] 1.89 10*3/uL 0.83-4.51 [facility] Basophil percentageOrdered B y: Mani Esquivel on 02-24-2023 Basophils/100 WBC (Bld) 0.4 % 0-1 [facility] Bilirubin [Mass/Vol] 0.20 mg/dL 0.20-1.00 [facility] Comment on above: For patients on eltr ombopag therapy, use of Dimension [place] TBIL is not recommended. Chloride [Moles/Vol] 106 mmol/L 98-107 [facility] Eosinophils/100 WBC (Bld) 4.3 % 0-5 [facility] Glucose [Mass/Vol] 66 mg/dL 74-106 [facility] Neutrophils (Bld) [#/Vol] 6.7 10*3/uL 2.0-7.7 [facility] Neutrophils/100 WBC (Bld) 65.7 % 47-70 [facility] Potassium [Moles/Vol] 3.9 mmol/L 3.5-5.1 [facility] Protein [Mass/Vol] 6.9 g/dL 6.4-8.2 [facility] Sodium [Moles/Vol] 138 mmol/L 136-145 [facility] WBC (Bld) [#/Vol] 10.2 10*3/uL 4.4-11.0 [facility] Blood erythrocytes count (nu mber/volume)Ordered By: Mani Esquivel on 02-24-2023 RBC (Bld) [#/Vol] 4.82 10*6/uL 4.6-6.2 [facility] Blood hemoglobin measurement (mass/volume)Ordered By: Mani Esquivel on 02-24-2023 Hemoglobin (Bld) [Mass/Vol] 13.9 g/dL 13.0-16.5 [facility] Blood lymphocytes/100 leukoc ytesOrdered By: Mani Esquivel on 02-24-2023 Lymphocytes/100 WBC (Bld) 18.5 % 19-41 [facility] Blood monocytes/100 leukocyt esOrdered By: Mani Esquivel on 02-24-2023 Monocytes/100 WBC (Bld) 10.7 % 0-10 [facility] Blood platelet mean volumeOr dered By: Mani Esquivel on 02-24-2023 Platelet mean volume (Bld) [Entitic vol] 10.7 fL 6.2-12.0 [facility] Determination of erythrocyte mean corpuscular volume (MCV)Ordered By: Mani Esquivel on 02-24-2023 MCV (RBC) [Entitic vol] 86.9 fL 80-94 [facility] Direct bilirubinOrdered By: Mani Esquivel on 02-24-2023 Bilirubin.direct [Mass/Vol] 0.10 mg/dL 0.00-0.30 [facility] Hematocrit Auto (Bld) [Volum e fraction]Ordered By: Mani Esquivel on 02-24-2023 Hematocrit (Bld) [Volume fraction] 41.9 % 40-54 [facility] Laboratory - Chemistry and C hemistry - challengeOrdered By: Mani Esquivel on 02-24-2023 ALP [Catalytic activity/Vol] 61 U/L 45-117 [facility] ALT [Catalytic activity/Vol] 33 U/L 16-61 [facility] CO2 [Moles/Vol] 24.0 mmol/L 21.0-32.0 [facility] Globulin (S) [Mass/Vol] 3.6 g/dL 2.2-4.2 [facility] Lipase [Catalytic activity/Vol] 96 U/L 13-75 [facility] Comment on above: Please note:LIPASE r evised reference range effective 22. New Lipase methodology. Expected to produce lower values than the previous assay method. NEW Reference Range: 13 - 75 U/L Urea nitrogen/Creatinine [Mass ratio] 20.0 mg/mg 10-20 [facility] Laboratory - Hematology and Cell countsOrdered By: Mani Esquivel on 02-24-2023 Erythrocyte distribution width (RBC) [Entitic vol] 42.4 fL 35.1-43.9 [facility] Erythrocyte distribution width (RBC) [Ratio] 13.4 % 11.6-14.6 [facility] Immature granulocytes/100 WBC (Bld) 0.400 % 0.0-0.9 [facility] Comment on above: IG% - Immature Granu locytes (promyelocytes, myelocytes and metamyelocytes) > 1% indicates that a LEFT SHIFT is Present. MCH (RBC) [Entitic mass] 28.8 pg 27.0-32.0 [facility] Nucleated RBC/100 WBC (Bld) [Ratio] 0 % 0-5 [facility] MCHC Auto (RBC) [Mass/Vol]Or dered By: Mani Esquivel on 02-24-2023 MCHC (RBC) [Mass/Vol] 33.2 g/dL 32-36 [facility] No Panel InformationOrdered By: Mani Esquivel on 02-24-2023 Estimated Creatinine Clearance Calc 68.80 ml/min [facility] Estimated GFR (MDRD) Amer 93 mL/min >60 [facility] Comment on above: GFR Calc Estimated GFR (MDRD) Non-Af Amer 77 mL/min >60 [facility] Comment on above: Non- GFR Calc Troponin I High Sensitivity 7 pg/mL 3.0-78.0 [facility] Comment on above: Please Note: New [place] t Units and Gender Specific Reference Ranges. For more information see Policy Stat Procedure [place] High Sensitivity Troponin (TNIH) and attachments. Platelets bldOrdered By: Rashel Esquivel on 02-24-2023 Platelets (Bld) [#/Vol] 234 10*3/uL 150-450 [facility] Serum or plasma albumin nahomy urement (mass/volume)Ordered By: Mani Esquivel on 02-24-2023 Albumin [Mass/Vol] 3.3 g/dL 3.2-5.0 [facility] Serum or plasma calcium nahomy urement (mass/volume)Ordered By: Mani Esquivel on 02-24-2023 Calcium [Mass/Vol] 8.9 mg/dL 8.5-10.1 [facility] Serum or plasma creatinine m easurement (mass/volume)Ordered By: Mani Esquivel on 02-24-2023 Creatinine [Mass/Vol] 1.00 mg/dL 0.70-1.30 [facility] Comment on above: The validity of the calculated GFR & GFRAA in patients over 70 years has not been determined. Clinical correlation is essential. 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 No acute fracture seen. Patient can be reevaluated in 10-14 days if symptoms persist. Manager Sourcing: PSCOleg Transcribe Date/Time: Feb 16 2023 3:38P Dictated by : XOCHITL SHIPMAN MD This examination was interpreted and the report reviewed and electronically signed by: XOCHITL SHIPMAN MD on Feb 16 2023 3:40PM [facility] [[email or web address]] DIVISION OF RADIOLOGY * * *Final Report* [...] malleolus. DIVISION OF RADIOLOGY Provider, Dara Maldonado [facility] - 02/16/2023 * * *Final Report* [...] reevaluated in 10-14 days if symptoms persist. Manager Sourcing: BERNIE Transcribe Date/Time: Feb 16 2023 3:38P Dictated by : XOCHITL SHIPMAN MD This examination was interpreted and the report reviewed and electronically signed by: XOCHITL SHIPMAN MD on Feb 16 2023 3:40PM [facility] Radiology Study observation (narrative) [facility] XR Ankle - left AP and Later al and obliqueOrdered By: Ccf Provider on 02-16-2023 [facility] Absolute lymphocyte countOrd ered By: Dr. Taylor on 11-21-2022 Lymphocytes Auto (Unsp spec) [#/Vol] 2.17 10*3/uL 0.83-4.51 [facility] Basophil percentageOrdered B y: Dr. Taylor on 11-21-2022 Basophils/100 WBC (Bld) 0.5 % 0-1 [facility] Chloride [Moles/Vol] 102 mmol/L 98-107 [facility] Eosinophils/100 WBC (Bld) 3.3 % 0-5 [facility] Glucose [Mass/Vol] 153 mg/dL 74-106 [facility] Comment on above: Fasting Glucose resu lt greater than or equal to 126 mg/dL suggests DIABETES MELLITUS per A.D.A. criteria. Neutrophils (Bld) [#/Vol] 7.9 10*3/uL 2.0-7.7 [facility] Neutrophils/100 WBC (Bld) 65.5 % 47-70 [facility] Potassium [Moles/Vol] 3.9 mmol/L 3.5-5.1 [facility] Sodium [Moles/Vol] 134 mmol/L 136-145 [facility] WBC (Bld) [#/Vol] 12.1 10*3/uL 4.4-11.0 [facility] Blood erythrocytes count (nu mber/volume)Ordered By: Dr. Taylor on 11-21-2022 RBC (Bld) [#/Vol] 5.03 10*6/uL 4.6-6.2 [facility] Blood hemoglobin measurement (mass/volume)Ordered By: Dr. Taylor on 11-21-2022 Hemoglobin (Bld) [Mass/Vol] 14.7 g/dL 13.0-16.5 [facility] Blood lymphocytes/100 leukoc ytesOrdered By: Dr. Taylor on 11-21-2022 Lymphocytes/100 WBC (Bld) 17.9 % 19-41 [facility] Blood monocytes/100 leukocyt esOrdered By: Dr. Taylor on 11-21-2022 Monocytes/100 WBC (Bld) 12.4 % 0-10 [facility] Blood platelet mean volumeOr dered By: Dr. Taylor on 11-21-2022 Platelet mean volume (Bld) [Entitic vol] 11.2 fL 6.2-12.0 [facility] Determination of erythrocyte mean corpuscular volume (MCV)Ordered By: Dr. Taylor on 11-21-2022 MCV (RBC) [Entitic vol] 85.5 fL 80-94 [facility] Glucose Glucometer (BldC) [M ass/Vol]Ordered By: Dr. Kebede on 11-21-2022 Glucose [Mass/Vol] 160 mg/dL 74-106 [facility] Comment on above: MANAGEMENT OF PATIEN T CARE PER NURSING PROTOCOL Hematocrit Auto (Bld) [Volum e fraction]Ordered By: Dr. Taylor on 11-21-2022 Hematocrit (Bld) [Volume fraction] 43.0 % 40-54 [facility] Laboratory - Chemistry and C hemistry - challengeOrdered By: Dr. Stevenson on 11-21-2022 Magnesium [Mass/Vol] 2.0 mg/dL 1.6-2.6 [facility] Laboratory - Chemistry and C hemistry - challengeOrdered By: Dr. Taylor on 11-21-2022 CO2 [Moles/Vol] 24.0 mmol/L 21.0-32.0 [facility] Urea nitrogen/Creatinine [Mass ratio] 20.5 mg/mg 10-20 [facility] Laboratory - Hematology and Cell countsOrdered By: Dr. Taylor on 11-21-2022 Erythrocyte distribution width (RBC) [Entitic vol] 41.1 fL 35.1-43.9 [facility] Erythrocyte distribution width (RBC) [Ratio] 13.2 % 11.6-14.6 [facility] Immature granulocytes/100 WBC (Bld) 0.400 % 0.0-0.9 [facility] Comment on above: IG% - Immature Granu locytes (promyelocytes, myelocytes and metamyelocytes) > 1% indicates that a LEFT SHIFT is Present. MCH (RBC) [Entitic mass] 29.2 pg 27.0-32.0 [facility] Nucleated RBC/100 WBC (Bld) [Ratio] 0 % 0-5 [facility] MCHC Auto (RBC) [Mass/Vol]Or dered By: Dr. Taylor on 11-21-2022 MCHC (RBC) [Mass/Vol] 34.2 g/dL 32-36 [facility] No Panel InformationOrdered By: Dr. Kebede on 11-21-2022 Troponin I High Sensitivity 8 pg/mL 3.0-78.0 [facility] Comment on above: Please Note: New [place] t Units and Gender Specific Reference Ranges. For more information see Policy Stat Procedure [place] High Sensitivity Troponin (TNIH) and attachments. No Panel InformationOrdered By: Dr. Taylor on 11-21-2022 Estimated Creatinine Clearance Calc 56.40 ml/min [facility] Estimated GFR (MDRD) Amer 74 mL/min >60 [facility] Comment on above: GFR Calc Estimated GFR (MDRD) Non-Af Amer 61 mL/min >60 [facility] Comment on above: Non- GFR Calc Troponin I High Sensitivity 8 pg/mL 3.0-78.0 [facility] Comment on above: Please Note: New [place] t Units and Gender Specific Reference Ranges. For more information see Policy Stat Procedure [place] High Sensitivity Troponin (TNIH) and attachments. Platelets bldOrdered By: Dr. Taylor on 11-21-2022 Platelets (Bld) [#/Vol] 249 10*3/uL 150-450 [facility] Serum or plasma calcium nahomy urement (mass/volume)Ordered By: Dr. Taylor on 11-21-2022 Calcium [Mass/Vol] 9.0 mg/dL 8.5-10.1 [facility] Serum or plasma creatinine m easurement (mass/volume)Ordered By: Dr. Taylor on 11-21-2022 Creatinine [Mass/Vol] 1.22 mg/dL 0.70-1.30 [facility] Comment on above: The validity of the calculated GFR & GFRAA in patients over 70 years has not been determined. Clinical correlation is essential. Serum or plasma urea nitroge n measurement (mass/volume)Ordered By: Dr. Taylor on 11-21-2022 Urea nitrogen [Mass/Vol] 25 mg/dL 7-18 [facility] Thin prep Papanicolaou smear with manual screeningOrdered By: Dr. Taylor on 11-21-2022 Thin prep Papanicolaou smear with manual screening 8 5-15 [facility] Absolute lymphocyte counton 04-08-2022 Lymphocytes Auto (Unsp spec) [#/Vol] 1.70 10*3/uL 0.83-4.51 [facility] Work Phone: Basophil percentageon 2021 Basophils/100 WBC (Bld) 0.4 % 0-1 [facility] Work Phone: Chloride [Moles/Vol] 103 mmol/L 98-107 [facility] Work Phone: Eosinophils/100 WBC (Bld) 3.1 % 0-5 [facility] Work Phone: Glucose [Mass/Vol] 138 mg/dL 74-106 [facility] Work Phone: Comment on above: Fasting Glucose resu lt greater than or equal to 126 mg/dL suggests DIABETES MELLITUS per A.D.A. criteria. Neutrophils (Bld) [#/Vol] 7.1 10*3/uL 2.0-7.7 [facility] Work Phone: Neutrophils/100 WBC (Bld) 68.6 % 47-70 [facility] Work Phone: Potassium [Moles/Vol] 4.6 mmol/L 3.5-5.1 [facility] Work Phone: [phone] Comment on above: Slight Hemolysis, Re sult may be falsely increased. Sodium [Moles/Vol] 137 mmol/L 136-145 [facility] Work Phone: WBC (Bld) [#/Vol] 10.4 10*3/uL 4.4-11.0 [facility] Work Phone: [phone] Blood erythrocytes count (nu mber/volume)on 04-08-2022 RBC (Bld) [#/Vol] 5.10 10*6/uL 4.6-6.2 [facility] Work Phone: Blood hemoglobin measurement (mass/volume)on 04-08-2022 Hemoglobin (Bld) [Mass/Vol] 14.0 g/dL 13.0-16.5 [facility] Work Phone: Blood lymphocytes/100 leukoc yteson 04-08-2022 Lymphocytes/100 WBC (Bld) 16.4 % 19-41 [facility] Work Phone: Blood monocytes/100 leukocyt eson 04-08-2022 Monocytes/100 WBC (Bld) 11.1 % 0-10 [facility] Work Phone: Blood platelet mean volumeon 04-08-2022 Platelet mean volume (Bld) [Entitic vol] 11.5 fL 6.2-12.0 [facility] Work Phone: Determination of erythrocyte mean corpuscular volume (MCV)on 04-08-2022 MCV (RBC) [Entitic vol] 85.1 fL 80-94 [facility] Work Phone: [phone] Hematocrit Auto (Bld) [Volum e fraction]on 04-08-2022 Hematocrit (Bld) [Volume fraction] 43.4 % 40-54 [facility] Work Phone: [phone] Laboratory - Chemistry and C hemistry - challengeon 04-08-2022 CO2 [Moles/Vol] 26.0 mmol/L 21.0-32.0 [facility] Work Phone: [phone] Urea nitrogen/Creatinine [Mass ratio] 17.2 mg/mg 10-20 [facility] Work Phone: [phone] Laboratory - Hematology and Cell countson 04-08-2022 Erythrocyte distribution width (RBC) [Entitic vol] 45.3 fL 35.1-43.9 [facility] Work Phone: [phone] Erythrocyte distribution width (RBC) [Ratio] 14.5 % 11.6-14.6 [facility] Work Phone: [phone] Immature granulocytes/100 WBC (Bld) 0.400 % 0.0-0.9 [facility] Work Phone: Comment on above: IG% - Immature Granu locytes (promyelocytes, myelocytes and metamyelocytes) > 1% indicates that a LEFT SHIFT is Present. MCH (RBC) [Entitic mass] 27.5 pg 27.0-32.0 [facility] Work Phone: [phone] Nucleated RBC/100 WBC (Bld) [Ratio] 0 % 0-5 [facility] Work Phone: [phone] MCHC Auto (RBC) [Mass/Vol]on 04-08-2022 MCHC (RBC) [Mass/Vol] 32.3 g/dL 32-36 [facility] Work Phone: No Panel Informationon 04-08 Troponin I High Sensitivity 9 pg/mL 3.0-78.0 [facility] Work Phone: Comment on above: Please Note: New [place] t Units and Gender Specific Reference Ranges. For more information see Policy Stat Procedure [place] High Sensitivity Troponin (TNIH) and attachments. Estimated Creatinine Clearance Calc 59.31 ml/min [facility] Work Phone: Estimated GFR (MDRD) Amer 78 mL/min >60 [facility] Work Phone: Comment on above: GFR Calc Estimated GFR (MDRD) Non-Af Amer 65 mL/min >60 [facility] Work Phone: Comment on above: Non- GFR Calc Platelets bldon 04-08-2022 Platelets (Bld) [#/Vol] 247 10*3/uL 150-450 [facility] Work Phone: Serum or plasma calcium nahomy urement (mass/volume)on 04-08-2022 Calcium [Mass/Vol] 9.2 mg/dL 8.5-10.1 [facility] Work Phone: Serum or plasma creatinine m easurement (mass/volume)on 04-08-2022 Creatinine [Mass/Vol] 1.16 mg/dL 0.70-1.30 [facility] Work Phone: Comment on above: The validity of the calculated GFR & GFRAA in patients over 70 years has not been determined. Clinical correlation is essential. Serum or plasma urea nitroge n measurement (mass/volume)on 04-08-2022 Urea nitrogen [Mass/Vol] 20 mg/dL 7-18 [facility] Work Phone: Thin prep Papanicolaou smear with manual screeningon 04-08-2022 Thin prep Papanicolaou smear with manual screening 8 5-15 [facility] Work Phone: Basophil percentageon 2021 Chloride [Moles/Vol] 104 mmol/L 98-107 [facility] Work Phone: Glucose [Mass/Vol] 197 mg/dL 74-106 [facility] Work Phone: Comment on above: Fasting Glucose resu lt greater than or equal to 126 mg/dL suggests DIABETES MELLITUS per A.D.A. criteria. Potassium [Moles/Vol] 3.9 mmol/L 3.5-5.1 [facility] Work Phone: Sodium [Moles/Vol] 136 mmol/L 136-145 [facility] Work Phone: Laboratory - Chemistry and C hemistry - challengeon 02-07-2022 CO2 [Moles/Vol] 25.0 mmol/L 21.0-32.0 [facility] Work Phone: Urea nitrogen/Creatinine [Mass ratio] 16.8 mg/mg 10-20 [facility] Work Phone: No Panel Informationon 02-07 Estimated GFR (MDRD) Amer 86 mL/min >60 [facility] Work Phone: Comment on above: GFR Calc Estimated GFR (MDRD) Non-Af Amer 71 mL/min >60 [facility] Work Phone: Comment on above: Non- GFR Calc Serum or plasma calcium nahomy urement (mass/volume)on 02-07-2022 Calcium [Mass/Vol] 8.8 mg/dL 8.5-10.1 [facility] Work Phone: Serum or plasma creatinine m easurement (mass/volume)on 02-07-2022 Creatinine [Mass/Vol] 1.07 mg/dL 0.70-1.30 [facility] Work Phone: Comment on above: The validity of the calculated GFR & GFRAA in patients over 70 years has not been determined. Clinical correlation is essential. Serum or plasma urea nitroge n measurement (mass/volume)on 02-07-2022 Urea nitrogen [Mass/Vol] 18 mg/dL 7-18 [facility] Work Phone: Thin prep Papanicolaou smear with manual screeningon 02-07-2022 Thin prep Papanicolaou smear with manual screening 7 5-15 [facility] Work Phone: XR Chest PA and Lateralon IMPRESSION: No acute radiographic abnormality. Manager Sourcing: BERNIE Transcribe Date/Time: Jul 13 2021 10:18A Dictated by : SILVIO WORTHY MD This examination was interpreted and the report reviewed and electronically signed by: SILVIO WORTHY MD on Jul 13 2021 10:19AM [facility] [[email or web address]] DIVISION OF RADIOLOGY * * *Final Report* [...] DIVISION OF RADIOLOGY Provider, [facility] - 07/13/2021 * * *Final [...] spine. IMPRESSION IMPRESSION: No acute radiographic abnormality. Manager Sourcing: PSCB Transcribe Date/Time: Jul 13 2021 10:18A Dictated by : SILVIO WORTHY MD This examination was interpreted and the report reviewed and electronically signed by: SILVIO WORTHY MD on Jul 13 2021 10:19AM EST [facility] Radiology Study observation (narrative) [facility] XR Chest PA and LateralOrder ed By: [facility] Provider on 07-13-2021 [facility] XR Ribs - right Views and est PAon 05-25-2021 IMPRESSION: No acute process is seen. Manager Sourcing: PSCB Transcribe Date/Time: May 25 2021 4:16P Dictated by : SHAR ESTEBAN MD This examination was interpreted and the report reviewed and electronically signed by: SHAR ESTEBAN MD on May 25 2021 4:18PM [facility] [[email or web address] DIVISION OF RADIOLOGY * * *Final Report* [...] DIVISION OF RADIOLOGY Provider, [facility] - 05/25/2021 * * *Final Report* * [...] IMPRESSION IMPRESSION: No acute process is seen. Manager Sourcing: BERNIE Transcribe Date/Time: May 25 2021 4:16P Dictated by : SHAR ESTEBAN MD This examination was interpreted and the report reviewed and electronically signed by: SHAR ESTEBAN MD on May 25 2021 4:18PM EST [facility] Radiology Study observation (narrative) [facility] XR Ribs - right Views and Ch est PAOrdered By: Ccf Provider on 05-25-2021 [facility] XR Chest PA and Lateralon IMPRESSION: No acute radiographic abnormality is evident. Manager Sourcing: BERNIE Transcribe Date/Time: Jan 24 2021 2:44P [...] spine. DIVISION OF RADIOLOGY Provider, Dara garcia [place] - 01/24/2021 * * *Final Report* * [...] IMPRESSION: No acute radiographic abnormality is evident. Manager Sourcing: PSCB Transcribe Date/Time: Jan 24 2021 2:44P Dictated by : ALY SABA MD This examination was interpreted and the report reviewed and electronically signed by: ALY SABA MD on Jan 24 2021 2:47PM EST [facility] Radiology Study observation (narrative) Armando br[facility] XR Chest PA and LateralOrder ed By: [facility] Provider on 01-24-2021 [facility] Vital Signs Date Time Vital Sign Value Performing Clinician Facility 06-11-2025 11:54-0400 Diastolic blood pressure 60 mm[Hg] Dr. Mathieu Virgen MD Work Phone: [phone] [place] [address] 06-11-2025 11:54-0400 Systolic blood pressure 100 mm[Hg] Dr. Mathieu Virgen MD Work Phone: [phone] [place] [address] 06-11-2025 11:18-0400 Body height 185.[address] Mathieu Virgen MD Work Phone: [phone] [place] [address] 06-11-2025 11:18-0400 Body mass index (BMI) [Ratio] 33 kg/m2 Dr. Mathieu Virgen MD Work Phone: [phone] [place] [address] 06-11-2025 11:18-0400 Body weight 113.[address] Mathieu Virgen MD Work Phone: 1(299)076-367721 [place] [address] 06-11-2025 11:18-0400 Heart rate 74 /min Dr. Mathieu Virgen MD Work Phone: [phone])469-978421 [place] [address] 06-11-2025 11:18-0400 Respiratory rate 20 /min Dr. Mathieu Virgen MD Work Phone: [phone])469-290982 [place] [address] 06-11-2025 11:18-0400 SaO2% (BldA) [Mass fraction] 94 % Dr. Mathieu Virgen MD Work Phone: [phone] [place] [address] 06-01-2025 15:54-0400 Body temperature 97.9 [degF] Dr. Mathieu Virgen MD Work Phone: [phone])[phone] [place] [address] 06-01-2025 15:54-0400 Diastolic blood pressure 66 mm[Hg] Dr. Mathieu Virgen MD Work Phone: 2(387)434-064882 [place] [address] 06-01-2025 15:54-0400 Heart rate 79 /min Dr. Mathieu Virgen MD Work Phone: [phone])605-896082 [place] [address] 06-01-2025 15:54-0400 Respiratory rate 16 /min Dr. Mathieu Virgen MD Work Phone: [phone])630-328182 [place] [address] 06-01-2025 15:54-0400 SaO2% (BldA) [Mass fraction] 93 % Dr. Mathieu Virgen MD Work Phone: 3(443)480-765682 [place] [address] 06-01-2025 15:54-0400 Systolic blood pressure 116 mm[Hg] Dr. Mathieu Virgen MD Work Phone: 2(303)231-893282 [place] [address] 06-01-2025 10:53-0400 Body height 185.[address] Mathieu Virgen MD Work Phone: 9(065)652-332182 [place] [address] 06-01-2025 10:53-0400 Body weight [address] Mathieu Virgen MD Work Phone: [phone])[phone] [place] [address] 06-01-2025 02:30-0400 Inhaled oxygen flow rate 2 L/min Dr. Mathieu Virgen MD Work Phone: 1(033)005-220982 [place] [address] 05-31-2025 17:02-0400 Body mass index (BMI) [Ratio] 33.1 kg/m2 Dr. Mathieu Virgen MD Work Phone: 1(376)680-071682 [place] [address] 05-31-2025 16:24-0400 Diastolic blood pressure 83 mm[Hg] Dr. Mathieu Virgen MD Work Phone: 4(449)453-151482 [place] [address] 05-31-2025 16:24-0400 Heart rate 78 /min Dr. Mathieu Virgen MD Work Phone: 5(842)435-903782 [place] [address] 05-31-2025 16:24-0400 Respiratory rate 19 /min Dr. Mathieu Virgen MD Work Phone: [phone] [place] [address] 05-31-2025 16:24-0400 SaO2% (BldA) [Mass fraction] 97 % Dr. Mathieu Virgen MD Work Phone: [phone])[phone] [place] [address] 05-31-2025 16:24-0400 Systolic blood pressure 135 mm[Hg] Dr. Mathieu Virgen MD Work Phone: 2(051)342-878682 [place] [address] 05-31-2025 15:19-0400 Body temperature 97.9 [degF] Dr. Mathieu Virgen MD Work Phone: 9(367)158-267182 [place] [address] 05-31-2025 11:08-0400 Body height 185.[address] Mathieu Virgen MD Work Phone: 8(157)489-719482 [place] [address] 05-31-2025 11:08-0400 Body mass index (BMI) [Ratio] 27 kg/m2 Dr. Mathieu Virgen MD Work Phone: 9(150)370-017082 [place] [address] 05-31-2025 11:08-0400 Body weight [address] Mathieu Virgen MD Work Phone: 1(292)006-750782 [place] [address] 05-04-2025 10:46-0400 Diastolic blood pressure 62 mm[Hg] Dr. Mathieu Virgen MD Work Phone: 7(616)106-538882 [place] [address] 05-04-2025 10:46-0400 Systolic blood pressure 106 mm[Hg] Dr. Mathieu Virgen MD Work Phone: 2(632)894-893282 [place] [address] 05-04-2025 10:13-0400 Body height 185.[address] Mathieu Virgen MD Work Phone: 6(588)570-180782 [place] [address] 05-04-2025 07:28-0400 Body mass index (BMI) [Ratio] 32 kg/m2 Dr. Mathieu Virgen MD Work Phone: 6(387)607-854482 [place] [address] 05-04-2025 07:28-0400 Body weight 110.[address] Mathieu Virgen MD Work Phone: 7(623)690-397282 [place] [address] 05-04-2025 07:28-0400 Heart rate 72 /min Dr. Mathieu Virgen MD Work Phone: 0(201)968-816482 [place] [address] 05-04-2025 07:28-0400 SaO2% (BldA) [Mass fraction] 96 % Dr. Mathieu Virgen MD Work Phone: 2(487)962-182682 [place] [address] 04-30-2025 16:33-0400 Body temperature 98.4 [degF] Dr. Mathieu Virgen MD Work Phone: 4(419)288-142182 [place] [address] 04-30-2025 16:33-0400 Diastolic blood pressure 73 mm[Hg] Dr. Mathieu Virgen MD Work Phone: 6(205)813-325382 [place] [address] 04-30-2025 16:33-0400 Heart rate 64 /min Dr. Mathieu Virgen MD Work Phone: 3(700)369-183182 [place] [address] 04-30-2025 16:33-0400 Respiratory rate 16 /min Dr. Mathieu Virgen MD Work Phone: 7(561)173-199582 [place] [address] 04-30-2025 16:33-0400 SaO2% (BldA) [Mass fraction] 98 % Dr. Mathieu Virgen MD Work Phone: 4(371)372-350582 [place] [address] 04-30-2025 16:33-0400 Systolic blood pressure 125 mm[Hg] Dr. Mathieu Virgen MD Work Phone: 3(426)881-086682 [place] [address] 04-30-2025 07:15-0400 Inhaled oxygen flow rate 2 L/min Dr. Mathieu Virgen MD Work Phone: 6(971)115-432082 [place] [address] 04-30-2025 03:23-0400 Body mass index (BMI) [Ratio] 33.2 kg/m2 Dr. Mathieu Virgen MD Work Phone: 8(604)300-481282 [place] [address] 04-30-2025 03:23-0400 Body weight 114.[address] Mathieu Virgen MD Work Phone: 8(021)366-155482 [place] [address] 04-29-2025 21:47-0400 Body temperature 97 [degF] Dr. Mathieu Virgen MD Work Phone: 1(369)681-576182 [place] [address] 04-29-2025 21:47-0400 Diastolic blood pressure 71 mm[Hg] Dr. Mathieu Virgen MD Work Phone: 4(922)632-859682 [place] [address] 04-29-2025 21:47-0400 Heart rate 71 /min Dr. Mathieu Virgen MD Work Phone: 7(756)141-346882 [place] [address] 04-29-2025 21:47-0400 Respiratory rate 22 /min Dr. Mathieu Virgen MD Work Phone: 8(736)978-648482 [place] [address] 04-29-2025 21:47-0400 SaO2% (BldA) [Mass fraction] 98 % Dr. Mathieu Virgen MD Work Phone: 2(778)707-984582 [place] [address] 04-29-2025 21:47-0400 Systolic blood pressure 138 mm[Hg] Dr. Mathieu Virgen MD Work Phone: 3(314)590-347682 [place] [address] 04-29-2025 21:43-0400 Body height 185.[address] Mathieu Virgen MD Work Phone: 1(475)282-836282 [place] [address] 04-29-2025 17:28-0400 Inhaled oxygen flow rate 2 L/min Dr. Mathieu Virgen MD Work Phone: 6(785)226-734382 [place] [address] 04-29-2025 15:42-0400 Body mass index (BMI) [Ratio] 33.5 kg/m2 Dr. Mathieu Virgen MD Work Phone: 6(062)768-767682 [place] [address] 04-29-2025 15:42-0400 Body weight 115.[address] Mathieu Virgen MD Work Phone: 1(839)325-332782 [place] [address] 04-29-2025 15:29-0400 Body height 185.[address] Mathieu Virgen MD Work Phone: 2(542)657-280282 [place] [address] 04-08-2025 07:17-0400 Body mass index (BMI) [Ratio] 33.1 kg/m2 Dr. Mathieu Virgen MD Work Phone: 1(527)049-558682 [place] [address] 04-08-2025 07:17-0400 Body temperature 97.2 [degF] Dr. Mathieu Virgen MD Work Phone: 6(694)213-729182 [place] [address] 04-08-2025 07:17-0400 Body weight 113.[address] Mathieu Virgen MD Work Phone: 5(347)714-779482 [place] [address] 04-08-2025 07:17-0400 Diastolic blood pressure 59 mm[Hg] Dr. Mathieu Virgen MD Work Phone: 2(970)946-158482 [place] [address] 04-08-2025 07:17-0400 Heart rate 78 /min Dr. Mathieu Virgen MD Work Phone: 5(238)216-638982 [place] [address] 04-08-2025 07:17-0400 Respiratory rate 20 /min Dr. Mathieu Virgen MD Work Phone: 2(367)724-911682 [place] [address] 04-08-2025 07:17-0400 SaO2% (BldA) [Mass fraction] 95 % Dr. Mathieu Virgen MD Work Phone: 2(701)829-187782 [place] [address] 04-08-2025 07:17-0400 Systolic blood pressure 114 mm[Hg] Dr. Mathieu Virgen MD Work Phone: 7(336)517-940782 [place] [address] 02-26-2025 14:00-0400 Body height 185.[address] Mathieu Virgen MD Work Phone: 9(481)477-550382 [place] [address] 02-26-2025 14:00-0400 Body weight 119.[address] Mathieu Virgen MD Work Phone: 4(864)436-576482 [place] [address] 02-26-2025 14:00-0400 Heart rate 82 /min Dr. Mathieu Virgen MD Work Phone: 8(785)405-850521 [place] [address] 02-26-2025 14:00-0400 SaO2% (BldA) [Mass fraction] 94 % Dr. Mathieu Virgen MD Work Phone: [facility] 01-26-2025 14:24-0400 Body mass index (BMI) [Ratio] 35.49 kg/m2 Mathieu Virgen MD Work Phone: [facility] 01-26-2025 14:24-0400 Body weight 122.02 kg Mathieu Virgen MD Work Phone: [facility] 01-26-2025 14:24-0400 Diastolic blood pressure 64 mm[Hg] Mathieu Virgen MD Work Phone: [facility] 01-26-2025 14:24-0400 Heart rate 82 /min Mathieu Virgen MD Work Phone: [facility] 01-26-2025 14:24-0400 SaO2% (BldA) [Mass fraction] 94 % Mathieu Virgen MD Work Phone: [facility] 01-26-2025 14:24-0400 Systolic blood pressure 108 mm[Hg] Mathieu Virgen MD Work Phone: [facility] 01-26-2025 09:39-0400 Body height 185.[address] Mathieu Virgen MD Work Phone: [facility] 01-26-2025 09:39-0400 Body mass index (BMI) [Ratio] 35.2 kg/m2 Dr. Mathieu Virgen MD Work Phone: [facility] 01-26-2025 09:39-0400 Body weight 121.[address] Mathieu Virgen MD Work Phone: [facility] 01-26-2025 09:39-0400 Diastolic blood pressure 73 mm[Hg] Dr. Mathieu Virgen MD Work Phone: 9(934)339-148221 [place] [address] 01-26-2025 09:39-0400 Heart rate 80 /min Dr. Mathieu Virgen MD Work Phone: [facility] 01-26-2025 09:39-0400 Respiratory rate 20 /min Dr. Mathieu Virgen MD Work Phone: [facility] 01-26-2025 09:39-0400 Systolic blood pressure 141 mm[Hg] Dr. Mathieu Virgen MD Work Phone: [facility] 01-21-2025 08:57-0400 Body mass index (BMI) [Ratio] 35.4 kg/m2 Dr. Mathieu Virgen MD Work Phone: 7(276)053-377982 [place] [address] 01-21-2025 08:57-0400 Body temperature 97.7 [degF] Dr. Mathieu Virgen MD Work Phone: 6(491)015-311782 [place] [address] 01-21-2025 08:57-0400 Body weight 122.[address] Mathieu Virgen MD Work Phone: 5(527)170-234382 [place] [address] 01-21-2025 08:57-0400 Diastolic blood pressure 66 mm[Hg] Dr. Mathieu Virgen MD Work Phone: 8(846)345-907582 [place] [address] 01-21-2025 08:57-0400 Heart rate 75 /min Dr. Mathieu Virgen MD Work Phone: 4(196)967-657082 [place] [address] 01-21-2025 08:57-0400 Respiratory rate 20 /min Dr. Mathieu Virgen MD Work Phone: 3(637)756-584182 [place] [address] 01-21-2025 08:57-0400 SaO2% (BldA) [Mass fraction] 94 % Dr. Mathieu Virgen MD Work Phone: 9(485)556-003582 [place] [address] 01-21-2025 08:57-0400 Systolic blood pressure 124 mm[Hg] Dr. Mathieu Virgen MD Work Phone: 4(747)799-511082 [place] [address] 01-20-2025 03:54-0400 Body temperature 98.1 [degF] Dr. Mathieu Virgen MD Work Phone: 7(814)240-185282 [place] [address] 01-20-2025 03:54-0400 Diastolic blood pressure 59 mm[Hg] Dr. Mathieu Virgen MD Work Phone: 4(027)307-133682 [place] [address] 01-20-2025 03:54-0400 Heart rate 70 /min Dr. Mathieu Virgen MD Work Phone: 0(868)980-147182 [place] [address] 01-20-2025 03:54-0400 Respiratory rate 18 /min Dr. Mathieu Virgen MD Work Phone: 2(338)331-375482 [place] [address] 01-20-2025 03:54-0400 SaO2% (BldA) [Mass fraction] 95 % Dr. Mathieu Virgen MD Work Phone: 4(552)289-610382 [place] [address] 01-20-2025 03:54-0400 Systolic blood pressure 135 mm[Hg] Dr. Mathieu Virgen MD Work Phone: [facility] 01-19-2025 22:43-0400 Body mass index (BMI) [Ratio] 35.4 kg/m2 Dr. Mathieu Virgen MD Work Phone: [facility] 01-19-2025 22:43-0400 Body weight 122.[address] Mathieu Virgen MD Work Phone: [facility] 01-12-2025 16:57-0400 Body mass index (BMI) [Ratio] 35.36 kg/m2 Mathieu Virgen MD Work Phone: [facility] 01-12-2025 16:57-0400 Body weight 121.56 kg Mathieu Virgen MD Work Phone: [facility] 01-12-2025 16:57-0400 Diastolic blood pressure 62 mm[Hg] Mathieu Virgen MD Work Phone: [facility] 01-12-2025 16:57-0400 Heart rate 77 /min Mathieu Virgen MD Work Phone: [facility] 01-12-2025 16:57-0400 SaO2% (BldA) [Mass fraction] 93 % Mathieu Virgen MD Work Phone: [facility] 01-12-2025 16:57-0400 Systolic blood pressure 112 mm[Hg] Mathieu Virgen MD Work Phone: [facility] 12-11-2024 13:10-0400 Body mass index (BMI) [Ratio] 36 kg/m2 Dr. Mathieu Virgen MD Work Phone: [facility] 12-11-2024 13:10-0400 Body weight 123.[address] Mathieu Virgen MD Work Phone: [facility] 12-11-2024 13:10-0400 Diastolic blood pressure 58 mm[Hg] Dr. Mathieu Virgen MD Work Phone: [facility] 12-11-2024 13:10-0400 Heart rate 72 /min Dr. Mathieu Virgen MD Work Phone: [facility] 12-11-2024 13:10-0400 Respiratory rate 18 /min Dr. Mathieu Virgen MD Work Phone: [facility] 12-11-2024 13:10-0400 Systolic blood pressure 113 mm[Hg] Dr. Mathieu Virgen MD Work Phone: [facility] 12-02-2024 15:36-0400 Body height 185.4 cm Mathieu Virgen MD Work Phone: [facility] 12-02-2024 15:36-0400 Body mass index (BMI) [Ratio] 36.02 kg/m2 Mathieu Virgen MD Work Phone: [facility] 12-02-2024 15:36-0400 Body weight 123.83 kg Mathieu Virgen MD Work Phone: [facility] 12-02-2024 15:36-0400 Diastolic blood pressure 54 mm[Hg] Mathieu Virgen MD Work Phone: [facility] 12-02-2024 15:36-0400 Heart rate 78 /min Mathieu Virgen MD Work Phone: [facility] 12-02-2024 15:36-0400 SaO2% (BldA) [Mass fraction] 95 % Mathieu Virgen MD Work Phone: [facility] 12-02-2024 15:36-0400 Systolic blood pressure 92 mm[Hg] Mathieu Virgen MD Work Phone: [facility] 11-03-2024 02:21-0500 Body temperature 98 [degF] Dr. Mathieu Virgen MD Work Phone: [facility] 11-03-2024 02:21-0500 Diastolic blood pressure 72 mm[Hg] Dr. Mathieu Virgen MD Work Phone: [facility] 11-03-2024 02:21-0500 Heart rate 72 /min Dr. Mathieu Virgen MD Work Phone: [facility] 11-03-2024 02:21-0500 Respiratory rate 18 /min Dr. Mathieu Virgne MD Work Phone: [facility] 11-03-2024 02:21-0500 SaO2% (BldA) [Mass fraction] 96 % Dr. Mathieu Virgen MD Work Phone: [facility] 11-03-2024 02:21-0500 Systolic blood pressure 121 mm[Hg] Dr. Mathieu Virgen MD Work Phone: [facility] 11-03-2024 00:05-0500 Body height 185.[address] Mathieu Virgen MD Work Phone: [facility] 11-03-2024 00:05-0500 Body mass index (BMI) [Ratio] 35.9 kg/m2 Dr. Mathieu Virgen MD Work Phone: [facility] 11-03-2024 00:05-0500 Body weight 123.[address] Mathieu Virgen MD Work Phone: [facility] 10-31-2024 14:40-0500 Body mass index (BMI) [Ratio] 36.15 kg/m2 Sukh Hall APRN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: [facility] 10-31-2024 14:40-0500 Body weight 124.29 kg Sukh Hall APRN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: [facility] 10-31-2024 14:40-0500 Diastolic blood pressure 68 mm[Hg] Sukh Hall APRN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: [facility] 10-31-2024 14:40-0500 Heart rate 78 /min Sukh Hall APRN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: [facility] 10-31-2024 14:40-0500 Respiratory rate 18 /min Sukh Hall APRN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: [facility] 10-31-2024 14:40-0500 SaO2% (BldA) [Mass fraction] 97 % Sukh Hall APRN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: 6(421)257-679496 [place] [address] 10-31-2024 14:40-0500 Systolic blood pressure 114 mm[Hg] Sukh Hall [employer]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: [facility] 09-23-2024 15:27-0500 Body mass index (BMI) [Ratio] 37.2 kg/m2 Dr. Mathieu Virgen MD Work Phone: 9(004)519-232421 [place] [address] 09-23-2024 15:27-0500 Body weight 127.[address] Mathieu Virgen MD Work Phone: 9(483)006-631482 [place] [address] 09-23-2024 15:27-0500 Diastolic blood pressure 80 mm[Hg] Dr. Mathieu Virgen MD Work Phone: 7(810)376-318582 [place] [address] 09-23-2024 15:27-0500 Heart rate 74 /min Dr. Mathieu Virgen MD Work Phone: 5(624)425-345182 [place] [address] 09-23-2024 15:27-0500 Respiratory rate 18 /min Dr. Mathieu Virgen MD Work Phone: 7(187)386-177982 [place] [address] 09-23-2024 15:27-0500 SaO2% (BldA) [Mass fraction] 94 % Dr. Mathieu Virgen MD Work Phone: 9(134)954-158282 [place] [address] 09-23-2024 15:27-0500 Systolic blood pressure 162 mm[Hg] Dr. Mathieu Virgen MD Work Phone: 7(553)067-106621 [place] [address] 09-23-2024 14:42-0500 Body mass index (BMI) [Ratio] 37.21 kg/m2 Denisha Shepard [employer]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: [facility] 09-23-2024 14:42-0500 Body weight 127.91 kg Denisha Shepard [employer]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: [facility] 09-23-2024 14:42-0500 Diastolic blood pressure 68 mm[Hg] Denisha Shepard [employer]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: [facility] 09-23-2024 14:42-0500 Heart rate 79 /min Denisha Shepard [employer]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: 2(272)435-720796 [place] [address] 09-23-2024 14:42-0500 Respiratory rate 16 /min Denisha Shepard [employer]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: 7(737)785-023996 [place] [address] 09-23-2024 14:42-0500 SaO2% (BldA) [Mass fraction] 99 % Denisha Shepard [employer]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: 6(196)588-604396 [place] [address] 09-23-2024 14:42-0500 Systolic blood pressure 118 mm[Hg] Denisha Shepard [employer]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: 6(877)780-007496 [place] [address] 09-20-2024 19:33-0500 Body temperature 98.2 [degF] Dr. Mathieu Virgen MD Work Phone: 2(801)862-433082 [place] [address] 09-20-2024 19:33-0500 Diastolic blood pressure 72 mm[Hg] Dr. Mathieu Virgen MD Work Phone: 6(330)848-666982 [place] [address] 09-20-2024 19:33-0500 Heart rate 79 /min Dr. Mathieu Virgen MD Work Phone: 4(307)248-869582 [place] [address] 09-20-2024 19:33-0500 Respiratory rate 19 /min Dr. Mathieu Virgen MD Work Phone: 1(732)696-732582 [place] [address] 09-20-2024 19:33-0500 SaO2% (BldA) [Mass fraction] 96 % Dr. Mathieu Virgen MD Work Phone: 6(833)485-600882 [place] [address] 09-20-2024 19:33-0500 Systolic blood pressure 118 mm[Hg] Dr. Mathieu Virgen MD Work Phone: 3(371)290-583782 [place] [address] 09-20-2024 17:00-0500 Inhaled oxygen flow rate 2 L/min Dr. Mathieu Virgen MD Work Phone: 5(983)762-019782 [place] [address] 09-20-2024 15:46-0500 Body mass index (BMI) [Ratio] 37.8 kg/m2 Dr. Mathieu Virgen MD Work Phone: 2(104)793-289082 [place] [address] 09-20-2024 15:46-0500 Body weight 130.[address] Mathieu Virgen MD Work Phone: 3(931)496-844582 [place] [address] 09-03-2024 15:19-0500 Body mass index (BMI) [Ratio] 37.5 kg/m2 Dr. Mathieu Virgen MD Work Phone: 2(265)419-209182 [place] [address] 09-03-2024 15:19-0500 Body weight 129.[address] Mathieu Virgen MD Work Phone: 6(770)969-226882 [place] [address] 09-03-2024 15:19-0500 Diastolic blood pressure 69 mm[Hg] Dr. Mathieu Virgen MD Work Phone: 8(734)592-262682 [place] [address] 09-03-2024 15:19-0500 Heart rate 76 /min Dr. Mathieu Virgen MD Work Phone: 9(185)133-203882 [place] [address] 09-03-2024 15:19-0500 Inhaled oxygen flow rate 2 L/min Dr. Mathieu Virgen MD Work Phone: 5(414)124-457782 [place] [address] 09-03-2024 15:19-0500 Respiratory rate 18 /min Dr. Mathieu Virgen MD Work Phone: 8(444)029-780082 [place] [address] 09-03-2024 15:19-0500 Systolic blood pressure 109 mm[Hg] Dr. Mathieu Virgen MD Work Phone: 4(126)936-935082 [place] [address] 09-01-2024 07:39-0500 Body temperature 98.2 [degF] Dr. Mathieu Virgen MD Work Phone: 9(320)759-617682 [place] [address] 09-01-2024 07:39-0500 Diastolic blood pressure 78 mm[Hg] Dr. Mathieu Virgen MD Work Phone: 3(504)872-557782 [place] [address] 09-01-2024 07:39-0500 Heart rate 65 /min Dr. Mathieu Virgen MD Work Phone: 1(802)878-152682 [place] [address] 09-01-2024 07:39-0500 Respiratory rate 18 /min Dr. Mathieu Virgen MD Work Phone: 4(030)770-067882 [place] [address] 09-01-2024 07:39-0500 SaO2% (BldA) [Mass fraction] 97 % Dr. Mathieu Virgen MD Work Phone: 2(966)530-865282 [place] [address] 09-01-2024 07:39-0500 Systolic blood pressure 101 mm[Hg] Dr. Mathieu Virgen MD Work Phone: 8(247)797-842582 [place] [address] 09-01-2024 06:00-0500 Inhaled oxygen flow rate 2 L/min Dr. Mathieu Virgen MD Work Phone: 2(332)209-128882 [place] [address] 09-01-2024 04:38-0500 Body mass index (BMI) [Ratio] 38.7 kg/m2 Dr. Mathieu Virgen MD Work Phone: 0(269)107-201882 [place] [address] 09-01-2024 04:38-0500 Body weight [address] Mathieu Virgen MD Work Phone: 4(473)046-877582 [place] [address] 08-13-2024 13:17-0500 Body mass index (BMI) [Ratio] 38.1 kg/m2 Dr. Mathieu Virgen MD Work Phone: 4(647)095-954082 [place] [address] 08-13-2024 13:17-0500 Body weight 131.[address] Mathieu Virgen MD Work Phone: 6(578)641-588982 [place] [address] 08-13-2024 13:17-0500 Diastolic blood pressure 57 mm[Hg] Dr. Mathieu Virgen MD Work Phone: 4(317)106-484582 [place] [address] 08-13-2024 13:17-0500 Heart rate 73 /min Dr. Mathieu Virgen MD Work Phone: 2(856)806-669482 [place] [address] 08-13-2024 13:17-0500 Respiratory rate 16 /min Dr. Mathieu Virgen MD Work Phone: 3(831)195-406582 [place] [address] 08-13-2024 13:17-0500 Systolic blood pressure 99 mm[Hg] Dr. Mathieu Virgen MD Work Phone: 2(467)890-051782 [place] [address] 07-29-2024 12:14-0500 Diastolic blood pressure 50 mm[Hg] Julianna Hood [employer]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: 6(647)614-095696 [place] [address] 07-29-2024 12:14-0500 Systolic blood pressure 104 mm[Hg] Julianna Hood [employer]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: 5(780)779-659196 [place] [address] 07-29-2024 11:29-0500 Body mass index (BMI) [Ratio] 39.32 kg/m2 Julianna Suppan [employer]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: [facility] 07-29-2024 11:29-0500 Body weight 135.17 kg Julianna Suppan [employer]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: [facility] 07-29-2024 11:29-0500 Heart rate 70 /min Julianna Suppan [employer]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: [facility] 07-29-2024 11:29-0500 Respiratory rate 24 /min Julianna Suppan [employer]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: [facility] 07-29-2024 11:29-0500 SaO2% (BldA) [Mass fraction] 92 % Julianna Suppan [employer]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: [facility] Comment on above: 2 liters 06-23-2024 14:37-0400 Body mass index (BMI) [Ratio] 39.56 kg/m2 Abril Simin [employer]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: [facility] 06-23-2024 14:37-0400 Body weight 136 kg Abril Simin [employer]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: [facility] 06-23-2024 14:37-0400 Diastolic blood pressure 77 mm[Hg] Abril Simin [employer]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: [facility] 06-23-2024 14:37-0400 Heart rate 82 /min Abril Simin [employer]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: [facility] 06-23-2024 14:37-0400 Respiratory rate 18 /min Abril Simin [employer]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: [facility] 06-23-2024 14:37-0400 SaO2% (BldA) [Mass fraction] 95 % Abril Simin [employer]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: [facility] 06-23-2024 14:37-0400 Systolic blood pressure 155 mm[Hg] Abril Duval [employer]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: [facility] 06-20-2024 15:38-0400 Body height 185.4 cm Mathieu Virgen MD Work Phone: [facility] 06-20-2024 15:38-0400 Body mass index (BMI) [Ratio] 39.76 kg/m2 Mathieu Virgen MD Work Phone: [facility] 06-20-2024 15:38-0400 Body weight 136.71 kg Mathieu Virgen MD Work Phone: [facility] 06-20-2024 15:38-0400 Diastolic blood pressure 56 mm[Hg] Mathieu Virgen MD Work Phone: [facility] 06-20-2024 15:38-0400 Heart rate 80 /min Mathieu Virgen MD Work Phone: [facility] 06-20-2024 15:38-0400 SaO2% (BldA) [Mass fraction] 94 % Mathieu Virgen MD Work Phone: [facility] 06-20-2024 15:38-0400 Systolic blood pressure 132 mm[Hg] Mathieu Virgen MD Work Phone: [facility] 04-09-2024 14:25-0400 Body mass index (BMI) [Ratio] 40.9 kg/m2 Andrew Guallpa [employer]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: [facility] 04-09-2024 14:25-0400 Body temperature 98.8 [degF] Andrew Guallpa [employer]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: [facility] 04-09-2024 14:25-0400 Body weight 140.6 kg Andrew Guallpa [employer]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: [facility] 04-09-2024 14:25-0400 Diastolic blood pressure 84 mm[Hg] Andrew Guallpa [employer]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: [facility] 04-09-2024 14:25-0400 Heart rate 94 /min Andrew Guallpa [employer]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: [facility] 04-09-2024 14:25-0400 Respiratory rate 20 /min Andrew Guallpa [employer]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: [facility] 04-09-2024 14:25-0400 SaO2% (BldA) [Mass fraction] 93 % Andrew Guallpa [employer]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: [facility] 04-09-2024 14:25-0400 Systolic blood pressure 128 mm[Hg] Andrew Guallpa [employer]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: [facility] 02-28-2024 11:50-0400 Diastolic blood pressure 86 mm[Hg] NA Travis PA-C Work Phone: [facility] 02-28-2024 11:50-0400 Systolic blood pressure 148 mm[Hg] NA Travis PA-C Work Phone: [facility] 02-28-2024 11:00-0400 Body mass index (BMI) [Ratio] 40.69 kg/m2 NA Travis PA-C Work Phone: [facility] 02-28-2024 11:00-0400 Body weight 139.89 kg NA Travis PA-C Work Phone: [facility] 02-28-2024 11:00-0400 Heart rate 85 /min NA Travis PA-C Work Phone: [facility] 02-28-2024 11:00-0400 SaO2% (BldA) [Mass fraction] 94 % NA Travis PA-C Work Phone: [facility] 02-04-2024 11:33-0400 Body mass index (BMI) [Ratio] 39.18 kg/m2 NA Travis PA-C Work Phone: [facility] 02-04-2024 11:33-0400 Body weight 134.72 kg NA Travis PA-C Work Phone: [facility] 02-04-2024 11:33-0400 Diastolic blood pressure 69 mm[Hg] NA Travis PA-C Work Phone: [facility] 02-04-2024 11:33-0400 Heart rate 73 /min NA Travis PA-C Work Phone: [facility] 02-04-2024 11:33-0400 Respiratory rate 18 /min NA Travis PA-C Work Phone: [facility] 02-04-2024 11:33-0400 SaO2% (BldA) [Mass fraction] 94 % NA Travis PA-C Work Phone: [facility] 02-04-2024 11:33-0400 Systolic blood pressure 113 mm[Hg] NA Travis PA-C Work Phone: [facility] 12-25-2023 13:44-0400 Body weight 130.18 kg Mathieu Virgen MD Work Phone: [facility] 12-25-2023 13:44-0400 Diastolic blood pressure 80 mm[Hg] Mathieu Virgen MD Work Phone: [facility] 12-25-2023 13:44-0400 Heart rate 73 /min Mathieu Virgen MD Work Phone: [facility] 12-25-2023 13:44-0400 Respiratory rate 18 /min Mathieu Virgen MD Work Phone: [facility] 12-25-2023 13:44-0400 SaO2% (BldA) [Mass fraction] 96 % Mathieu Virgen MD Work Phone: [facility] 12-25-2023 13:44-0400 Systolic blood pressure 122 mm[Hg] Mathieu Virgen MD Work Phone: [facility] 09-22-2023 14:49-0500 Diastolic blood pressure 56 mm[Hg] [facility] 09-22-2023 14:49-0500 Heart rate 75 /min [facility] 09-22-2023 14:49-0500 Respiratory rate 16 /min [facility] 09-22-2023 14:49-0500 SaO2% (BldA) [Mass fraction] 96 % [facility] 09-22-2023 14:49-0500 Systolic blood pressure 121 mm[Hg] [facility] 09-22-2023 10:13-0500 Body height 185.42 cm [facility] 09-22-2023 10:13-0500 Body mass index (BMI) [Ratio] 38.2 kg/m2 [facility] 09-22-2023 10:13-0500 Body temperature 96.9 [degF] [facility] 09-22-2023 10:13-0500 Body weight 131.3 kg [facility] 07-23-2023 14:18-0500 Diastolic blood pressure 70 mm[Hg] Pio Nicole MD Work Phone: [facility] 07-23-2023 14:18-0500 Heart rate 64 /min Pio Nicole MD Work Phone: [facility] 07-23-2023 14:18-0500 Respiratory rate 20 /min Pio Nicole MD Work Phone: [facility] 07-23-2023 14:18-0500 SaO2% (BldA) [Mass fraction] 96 % Pio Nicole MD Work Phone: [facility] 07-23-2023 14:18-0500 Systolic blood pressure 128 mm[Hg] Pio Nicole MD Work Phone: [facility] 06-09-2023 10:41-0400 Body temperature 98.6 [degF] Pio Nicole MD Work Phone: [facility] 06-09-2023 10:41-0400 Body weight 132.45 kg Pio Nicole MD Work Phone: [facility] 06-09-2023 10:41-0400 Diastolic blood pressure 68 mm[Hg] Pio Nicole MD Work Phone: [facility] 06-09-2023 10:41-0400 Heart rate 79 /min Pio Nicole MD Work Phone: [facility] 09-23-2023 10:41-0400 Respiratory rate 30 /min Pio Nicole MD Work Phone: [facility] 06-09-2023 10:41-0400 SaO2% (BldA) [Mass fraction] 93 % Pio Nicole MD Work Phone: [facility] 06-09-2023 10:41-0400 Systolic blood pressure 124 mm[Hg] Pio Nicole MD Work Phone: [facility] 06-06-2023 10:25-0400 Body height 185.4 cm Mathieu Virgen MD Work Phone: [facility] 06-06-2023 10:25-0400 Body weight 134.17 kg Mathieu Virgen MD Work Phone: [facility] 06-06-2023 10:25-0400 Diastolic blood pressure 64 mm[Hg] Mathieu Virgen MD Work Phone: [facility] 06-06-2023 10:25-0400 Heart rate 77 /min Mathieu Virgen MD Work Phone: [facility] 06-06-2023 10:25-0400 SaO2% (BldA) [Mass fraction] 97 % Mathieu Virgen MD Work Phone: [facility] 06-06-2023 10:25-0400 Systolic blood pressure 130 mm[Hg] Mathieu Virgen MD Work Phone: [facility] 05-18-2023 15:03-0400 Body height 185.4 cm NA Travis PA-C Work Phone: [facility] 05-18-2023 15:03-0400 Body temperature 97.11 [degF] NA Travis PA-C Work Phone: [facility] 05-18-2023 15:03-0400 Body weight 131 kg NA Travis PA-C Work Phone: [facility] 05-18-2023 15:03-0400 Diastolic blood pressure 64 mm[Hg] NA Travis PA-C Work Phone: [facility] 05-18-2023 15:03-0400 Heart rate 72 /min NA Travis PA-C Work Phone: [facility] 05-18-2023 15:03-0400 SaO2% (BldA) [Mass fraction] 96 % NA Travis PA-C Work Phone: [facility] 05-18-2023 15:03-0400 Systolic blood pressure 104 mm[Hg] NA Travis PA-C Work Phone: [facility] 05-01-2023 14:23-0400 Body temperature 97.9 [degF] NA Travis PA-C Work Phone: [facility] 05-01-2023 14:23-0400 Diastolic blood pressure 70 mm[Hg] NA Travis PA-C Work Phone: [facility] 05-01-2023 14:23-0400 Heart rate 80 /min NA Travis PA-C Work Phone: [facility] 05-01-2023 14:23-0400 Respiratory rate 20 /min NA Travis PA-C Work Phone: [facility] 05-01-2023 14:23-0400 SaO2% (BldA) [Mass fraction] 96 % NA Travis PA-C Work Phone: [facility] 05-01-2023 14:23-0400 Systolic blood pressure 118 mm[Hg] NA Travis PA-C Work Phone: [facility] 04-30-2023 14:11-0400 Body weight 132.9 kg NA Travis PA-C Work Phone: [facility] 04-30-2023 14:11-0400 Diastolic blood pressure 68 mm[Hg] NA Travis PA-C Work Phone: [facility] 04-30-2023 14:11-0400 Heart rate 75 /min NA Travis PA-C Work Phone: [facility] 04-30-2023 14:11-0400 Respiratory rate 18 /min NA Travis PA-C Work Phone: [facility] 04-30-2023 14:11-0400 SaO2% (BldA) [Mass fraction] 95 % NA Travis PA-C Work Phone: [facility] 04-30-2023 14:11-0400 Systolic blood pressure 114 mm[Hg] NA Travis PA-C Work Phone: [facility] 03-31-2023 04:41-0400 Diastolic blood pressure 68 mm[Hg] Dr. Mathieu Virgen Work Phone: [facility] 03-31-2023 04:41-0400 Heart rate 65 /min Dr. Mathieu Virgen Work Phone: [facility] 03-31-2023 04:41-0400 Respiratory rate 16 /min Dr. Mathieu Virgen Work Phone: [facility] 03-31-2023 04:41-0400 SaO2% (BldA) [Mass fraction] 98 % Dr. Mathieu Virgen Work Phone: [facility] 03-31-2023 04:41-0400 Systolic blood pressure 138 mm[Hg] Dr. Mathieu Virgen Work Phone: [facility] 03-31-2023 00:17-0400 Body height 184.[address] Mathieu Virgen Work Phone: [facility] 03-31-2023 00:17-0400 Body temperature 97.8 [degF] Dr. Mathieu Virgen Work Phone: [facility] 03-05-2023 15:22-0400 Body temperature 97.3 [degF] Andrew Guallpa APRN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: [facility] 03-05-2023 15:22-0400 Body weight 138.26 kg Andrew Guallpa APRN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: [facility] 03-05-2023 15:22-0400 Diastolic blood pressure 62 mm[Hg] Andrew Guallpa APRN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: [facility] 03-05-2023 15:22-0400 Heart rate 82 /min Andrew Castellanoscollette [employer]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: [facility] 03-05-2023 15:22-0400 Respiratory rate 20 /min Andrew Castellanoscollette [employer]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: [facility] 03-05-2023 15:22-0400 SaO2% (BldA) [Mass fraction] 94 % Andrew Castellanoscollette [employer]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: [facility] 03-05-2023 15:22-0400 Systolic blood pressure 120 mm[Hg] Andrew Castellanoscollette [employer]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: [facility] 03-02-2023 16:23-0400 Body weight 137.44 kg Mathieu Virgen MD Work Phone: [facility] 03-02-2023 16:23-0400 Diastolic blood pressure 60 mm[Hg] Mathieu Virgen MD Work Phone: [facility] 03-02-2023 16:23-0400 Heart rate 76 /min Mathieu Virgen MD Work Phone: [facility] 03-02-2023 16:23-0400 SaO2% (BldA) [Mass fraction] 93 % Mathieu Virgen MD Work Phone: [facility] 03-02-2023 16:23-0400 Systolic blood pressure 112 mm[Hg] Mathieu Virgen MD Work Phone: [facility] 03-01-2023 22:57-0400 Diastolic blood pressure 67 mm[Hg] Dr. Mathieu Virgen Work Phone: [facility] 03-01-2023 22:57-0400 Heart rate 73 /min Dr. Mathieu Virgen Work Phone: [facility] 03-01-2023 22:57-0400 Respiratory rate 16 /min Dr. Mathieu Virgen Work Phone: [facility] 03-01-2023 22:57-0400 SaO2% (BldA) [Mass fraction] 95 % Dr. Mathieu Virgen Work Phone: 9(708)295-550721 [place] [address] 03-01-2023 22:57-0400 Systolic blood pressure 132 mm[Hg] Dr. Mathieu Virgen Work Phone: 0(229)200-139482 [place] [address] 03-01-2023 20:28-0400 Body height 185.[address] Mathieu Virgen Work Phone: 4(695)126-674782 [place] [address] 03-01-2023 20:28-0400 Body mass index (BMI) [Ratio] 40 kg/m2 Dr. Mathieu Virgen Work Phone: 9(376)168-666882 [place] [address] 03-01-2023 20:28-0400 Body temperature 97.8 [degF] Dr. Mathieu Virgen Work Phone: 2(080)080-946482 [place] [address] 03-01-2023 20:28-0400 Body weight 137.[address] Mathieu Virgen Work Phone: 5(952)967-675882 [place] [address] 03-01-2023 07:54-0400 Body mass index (BMI) [Ratio] 39.2 kg/m2 Dr. Mathieu Virgen Work Phone: 4(562)038-249582 [place] [address] 03-01-2023 07:54-0400 Body temperature 97.7 [degF] Dr. Mathieu Virgen Work Phone: 9(617)432-433782 [place] [address] 03-01-2023 07:54-0400 Body weight 134.[address] Mathieu Virgen Work Phone: 3(610)656-705682 [place] [address] 03-01-2023 07:54-0400 Diastolic blood pressure 59 mm[Hg] Dr. Mathieu Virgen Work Phone: 4(537)091-564021 [place] [address] 03-01-2023 07:54-0400 Heart rate 84 /min Dr. Mathieu Virgen Work Phone: 8(384)960-529782 [place] [address] 03-01-2023 07:54-0400 Respiratory rate 20 /min Dr. Mathieu Virgen Work Phone: 7(515)517-705282 [place] [address] 03-01-2023 07:54-0400 SaO2% (BldA) [Mass fraction] 91 % Dr. Mathieu Virgen Work Phone: 9(161)384-360621 [place] [address] 03-01-2023 07:54-0400 Systolic blood pressure 131 mm[Hg] Dr. Mathieu Virgen Work Phone: 2(757)005-989482 [place] [address] 02-25-2023 03:07-0400 Diastolic blood pressure 75 mm[Hg] Dr. Mathieu Virgen Work Phone: 3(542)063-540482 [place] [address] 02-25-2023 03:07-0400 Heart rate 66 /min Dr. Mathieu Virgen Work Phone: 7(440)027-480082 [place] [address] 02-25-2023 03:07-0400 Respiratory rate 22 /min Dr. Mathieu Virgen Work Phone: 7(362)934-931382 [place] [address] 02-25-2023 03:07-0400 SaO2% (BldA) [Mass fraction] 96 % Dr. Mathieu Virgen Work Phone: 4(651)756-459382 [place] [address] 02-25-2023 03:07-0400 Systolic blood pressure 153 mm[Hg] Dr. Mathieu Virgen Work Phone: 3(593)507-281482 [place] [address] 02-24-2023 21:56-0400 Body mass index (BMI) [Ratio] 40.8 kg/m2 Dr. Mathieu Virgen Work Phone: 4(248)619-529682 [place] [address] 02-24-2023 21:56-0400 Body temperature 96.6 [degF] Dr. Mathieu Virgen Work Phone: 3(159)918-854782 [place] [address] 02-24-2023 21:56-0400 Body weight 140.[address] Mathieu Virgen Work Phone: 4(102)345-541821 [place] [address] 02-16-2023 14:38-0400 Diastolic blood pressure 80 mm[Hg] Denisha Shepard [employer]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: 2(840)032-348596 [place] [address] 02-16-2023 14:38-0400 Heart rate 82 /min Denisha Haagen [employer]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: [facility] 02-16-2023 14:38-0400 Respiratory rate 16 /min Denisha Jensenagen [employer]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: [facility] 02-16-2023 14:38-0400 SaO2% (BldA) [Mass fraction] 94 % Denisha Shepard [employer]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: [facility] 02-16-2023 14:38-0400 Systolic blood pressure 142 mm[Hg] Denisha Shepard [employer]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: [facility] 01-19-2023 14:18-0400 Body weight 137.44 kg Mathieu Virgen MD Work Phone: [facility] 01-19-2023 14:18-0400 Diastolic blood pressure 72 mm[Hg] Mathieu Virgen MD Work Phone: [facility] 01-19-2023 14:18-0400 Heart rate 86 /min Mathieu Virgen MD Work Phone: [facility] 01-19-2023 14:18-0400 Respiratory rate 16 /min Mathieu Virgen MD Work Phone: [facility] 01-19-2023 14:18-0400 Systolic blood pressure 134 mm[Hg] Mathieu Virgen MD Work Phone: [facility] 11-29-2022 09:33-0400 Body height 185.4 cm Mathieu Virgen MD Work Phone: [facility] 11-29-2022 09:33-0400 Body weight 137.89 kg Mathieu Virgen MD Work Phone: [facility] 11-29-2022 09:33-0400 Diastolic blood pressure 68 mm[Hg] Mathieu Virgen MD Work Phone: [facility] 11-29-2022 09:33-0400 Heart rate 85 /min Mathieu Virgen MD Work Phone: [facility] 11-29-2022 09:33-0400 SaO2% (BldA) [Mass fraction] 96 % Mathieu Virgen MD Work Phone: [facility] 11-29-2022 09:33-0400 Systolic blood pressure 136 mm[Hg] Mathieu Viregn MD Work Phone: [facility] 11-21-2022 14:44-0500 Body temperature 97.7 [degF] Dr. Mathieu Virgen Work Phone: 6(356)942-196982 [place] [address] 11-21-2022 14:44-0500 Diastolic blood pressure 74 mm[Hg] Dr. Mathieu Virgen Work Phone: 8(390)974-303182 [place] [address] 11-21-2022 14:44-0500 Heart rate 78 /min Dr. Mathieu Virgen Work Phone: 9(834)634-240382 [place] [address] 11-21-2022 14:44-0500 Respiratory rate 16 /min Dr. Mathieu Virgen Work Phone: 3(222)949-085282 [place] [address] 11-21-2022 14:44-0500 SaO2% (BldA) [Mass fraction] 94 % Dr. Mathieu Virgen Work Phone: 5(546)305-387582 [place] [address] 11-21-2022 14:44-0500 Systolic blood pressure 145 mm[Hg] Dr. Mathieu Virgen Work Phone: 3(389)561-708682 [place] [address] 11-21-2022 08:28-0500 Body height 185.[address] Mathieu Virgen Work Phone: 9(058)897-529582 [place] [address] 11-21-2022 08:28-0500 Body mass index (BMI) [Ratio] 39.9 kg/m2 Dr. Mathieu Virgen Work Phone: 7(324)074-334982 [place] [address] 11-21-2022 08:28-0500 Body weight 137.[address] Mathieu Virgen Work Phone: 1(579)922-312182 [place] [address] 11-21-2022 01:50-0500 Diastolic blood pressure 77 mm[Hg] Dr. Mathieu Virgen Work Phone: 7(432)623-711782 [place] [address] 11-21-2022 01:50-0500 Heart rate 89 /min Dr. Mathieu Virgen Work Phone: 2(645)885-982921 [place] [address] 11-21-2022 01:50-0500 Respiratory rate 15 /min Dr. Mathieu Virgen Work Phone: 4(264)770-836982 [place] [address] 11-21-2022 01:50-0500 SaO2% (BldA) [Mass fraction] 99 % Dr. Mathieu Virgen Work Phone: 4(933)992-707721 [place] [address] 11-21-2022 01:50-0500 Systolic blood pressure 150 mm[Hg] Dr. Mathieu Virgen Work Phone: 7(942)503-524682 [place] [address] 11-20-2022 23:59-0500 Body mass index (BMI) [Ratio] 40.8 kg/m2 Dr. Mathieu Virgen Work Phone: 0(784)992-816282 [place] [address] 11-20-2022 23:59-0500 Body temperature 97.9 [degF] Dr. Mathieu Virgen Work Phone: 5(159)117-432282 [place] [address] 11-20-2022 23:59-0500 Body weight 140.[address] Mathieu Virgen Work Phone: 8(250)664-842482 [place] [address] 10-26-2022 11:24-0500 Body weight 138.[address] Mathieu Virgen Work Phone: 0(959)379-938682 [place] [address] 10-26-2022 11:24-0500 Diastolic blood pressure 66 mm[Hg] Dr. Mathieu Virgen Work Phone: 5(039)863-676482 [place] [address] 10-26-2022 11:24-0500 Heart rate 75 /min Dr. Mathieu Virgen Work Phone: 1(023)974-133582 [place] [address] 10-26-2022 11:24-0500 Respiratory rate 24 /min Dr. Mathieu Virgen Work Phone: 1(105)872-385582 [place] [address] 10-26-2022 11:24-0500 Systolic blood pressure 104 mm[Hg] Dr. Mathieu Virgen Work Phone: 7(905)243-272782 [place] [address] 08-08-2022 08:49-0500 Body height 185.[address] Mathieu Virgen Work Phone: 3(383)099-745482 [place] [address] Work Phone: 08-08-2022 08:49-0500 Body mass index (BMI) [Ratio] 39.5 kg/m2 Dr. Mathieu Virgen Work Phone: 6(823)529-788982 [place] [address] 08-08-2022 08:49-0500 Body temperature 97.5 [degF] Dr. Mathieu Virgen Work Phone: 1(746)883-590882 [place] [address] 08-08-2022 08:49-0500 Body weight 136.[address] Mathieu Virgen Work Phone: [facility] 08-08-2022 08:49-0500 Diastolic blood pressure 65 mm[Hg] Dr. Mathieu Virgen Work Phone: [facility] 08-08-2022 08:49-0500 Heart rate 86 /min Dr. Mathieu Virgen Work Phone: [facility] 08-08-2022 08:49-0500 Respiratory rate 14 /min Dr. Mathieu Virgen Work Phone: [facility] 08-08-2022 08:49-0500 SaO2% (BldA) [Mass fraction] 96 % Dr. Mathieu Virgen Work Phone: [facility] 08-08-2022 08:49-0500 Systolic blood pressure 160 mm[Hg] Dr. Mathieu Virgen Work Phone: [facility] 05-31-2022 10:38-0400 Body height 185.4 cm Mathieu Virgen MD Work Phone: [facility] 05-31-2022 10:38-0400 Body weight 136.08 kg Mathieu Virgen MD Work Phone: [facility] 05-31-2022 10:38-0400 Diastolic blood pressure 68 mm[Hg] Mathieu Virgen MD Work Phone: [facility] 05-31-2022 10:38-0400 Heart rate 87 /min Mathieu Virgen MD Work Phone: [facility] 05-31-2022 10:38-0400 SaO2% (BldA) [Mass fraction] 94 % Mathieu Virgen MD Work Phone: [facility] 05-31-2022 10:38-0400 Systolic blood pressure 136 mm[Hg] Mathieu Virgen MD Work Phone: [facility] 05-04-2022 08:51-0400 Body mass index (BMI) [Ratio] 39.8 kg/m2 Dr. Mathieu Virgen Work Phone: [facility] Work Phone: 05-04-2022 08:51-0400 Body weight 136.[address] Mathieu Virgen Work Phone: [facility] Work Phone: 05-04-2022 08:51-0400 Diastolic blood pressure 69 mm[Hg] Dr. Mathieu Virgen Work Phone: [facility] Work Phone: 05-04-2022 08:51-0400 Heart rate 80 /min Dr. Mathieu Virgen Work Phone: [facility] Work Phone: 05-04-2022 08:51-0400 Respiratory rate 22 /min Dr. Mathieu Virgen Work Phone: [facility] Work Phone: 05-04-2022 08:51-0400 Systolic blood pressure 112 mm[Hg] Dr. Mathieu Virgen Work Phone: [facility] Work Phone: 04-08-2022 19:02-0400 Diastolic blood pressure 54 mm[Hg] Dr. Mathieu Virgen Work Phone: [facility] Work Phone: 04-08-2022 19:02-0400 Heart rate 78 /min Dr. Mathieu Virgen Work Phone: [facility] Work Phone: 04-08-2022 19:02-0400 Systolic blood pressure 137 mm[Hg] Dr. Mathieu Virgen Work Phone: [facility] Work Phone: 04-08-2022 18:04-0400 Respiratory rate 16 /min Dr. Mathieu Virgen Work Phone: [facility] Work Phone: 04-08-2022 18:04-0400 SaO2% (BldA) [Mass fraction] 96 % Dr. Mathieu Virgen Work Phone: [facility] Work Phone: 04-08-2022 15:02-0400 Body height 185.[address] Mathieu Virgen Work Phone: [facility] Work Phone: 04-08-2022 15:02-0400 Body mass index (BMI) [Ratio] 39.8 kg/m2 Dr. aMthieu Virgen Work Phone: [facility] Work Phone: 04-08-2022 15:02-0400 Body temperature 97.8 [degF] Dr. Mathieu Virgen Work Phone: [facility] Work Phone: 04-08-2022 15:02-0400 Body weight [address] Mathieu Virgen Work Phone: [facility] Work Phone: 04-08-2022 14:43-0400 Body temperature 97.5 [degF] Andrew Pendlebury [employer]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: [facility] 04-08-2022 14:43-0400 Body weight 137.26 kg Andrew Pendlecollette [employer]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: [facility] 04-08-2022 14:43-0400 Diastolic blood pressure 60 mm[Hg] Andrew Pendlebury [employer]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: [facility] 04-08-2022 14:43-0400 Heart rate 80 /min Andrew Pendlebury [employer]ING [employer]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: [facility] 04-08-2022 14:43-0400 Respiratory rate 21 /min Andrew Pendlebury [employer]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: [facility] 04-08-2022 14:43-0400 SaO2% (BldA) [Mass fraction] 97 % Andrew Pendlebury [employer]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: [facility] 04-08-2022 14:43-0400 Systolic blood pressure 136 mm[Hg] Andrew Guallpa APRN.CNP Work Phone: [facility] 03-03-2022 10:26-0400 Body weight 136.53 kg Mathieu Virgen MD Work Phone: [facility] 03-03-2022 10:26-0400 Diastolic blood pressure 74 mm[Hg] Mathieu Virgen MD Work Phone: [facility] 03-03-2022 10:26-0400 Heart rate 78 /min Mathieu Virgen MD Work Phone: [facility] 03-03-2022 10:26-0400 SaO2% (BldA) [Mass fraction] 95 % Mathieu Virgen MD Work Phone: [facility] 03-03-2022 10:26-0400 Systolic blood pressure 124 mm[Hg] Mathieu Virgen MD Work Phone: [facility] 03-02-2022 10:33-0400 Body mass index (BMI) [Ratio] 39.2 kg/m2 Dr. Mathieu Virgen Work Phone: [facility] Work Phone: 03-02-2022 10:33-0400 Body temperature 97.1 [degF] Dr. Mathieu Virgen Work Phone: [facility] Work Phone: 03-02-2022 10:33-0400 Body weight 134.[address] Mathieu Virgen Work Phone: [facility] Work Phone: 03-02-2022 10:33-0400 Diastolic blood pressure 52 mm[Hg] Dr. Mathieu Virgen Work Phone: [facility] Work Phone: 03-02-2022 10:33-0400 Heart rate 83 /min Dr. Mathieu Virgen Work Phone: [facility] Work Phone: 03-02-2022 10:33-0400 Respiratory rate 17 /min Dr. Mathieu Virgen Work Phone: [facility] Work Phone: 03-02-2022 10:33-0400 SaO2% (BldA) [Mass fraction] 93 % Dr. Mathieu Virgen Work Phone: [facility] Work Phone: 03-02-2022 10:33-0400 Systolic blood pressure 100 mm[Hg] Dr. Mathieu Virgen Work Phone: [facility] Work Phone: 01-30-2022 11:26-0400 Body mass index (BMI) [Ratio] 40.7 kg/m2 Dr. Mathieu Virgen Work Phone: [facility] Work Phone: 01-30-2022 11:26-0400 Body temperature 97.9 [degF] Dr. Mathieu Virgen Work Phone: [facility] Work Phone: 01-30-2022 11:26-0400 Body weight 140.[address] Mathieu Virgen Work Phone: [facility] Work Phone: 01-30-2022 11:26-0400 Diastolic blood pressure 78 mm[Hg] Dr. Mathieu Virgen Work Phone: [facility] Work Phone: 01-30-2022 11:26-0400 Heart rate 83 /min Dr. Mathieu Virgen Work Phone: [facility] Work Phone: 01-30-2022 11:26-0400 Respiratory rate 22 /min Dr. Mathieu Virgen Work Phone: [facility] Work Phone: 01-30-2022 11:26-0400 SaO2% (BldA) [Mass fraction] 93 % Dr. Mathieu Virgen Work Phone: [facility] Work Phone: 01-30-2022 11:26-0400 Systolic blood pressure 126 mm[Hg] Dr. Mathieu Virgen Work Phone: [facility] Work Phone: 01-30-2022 11:26-0400 Body height 185.[address] Mathieu Virgen Work Phone: [facility] Work Phone: 01-30-2022 11:26-0400 Body mass index (BMI) [Ratio] 40.7 kg/m2 Dr. Mathieu Virgen Work Phone: [facility] Work Phone: 01-30-2022 11:26-0400 Body temperature 97.9 [degF] Dr. Mathieu Virgen Work Phone: [facility] Work Phone: 01-30-2022 11:26-0400 Body weight 140.[address] Mathieu Virgen Work Phone: [facility] Work Phone: 01-30-2022 11:26-0400 Diastolic blood pressure 78 mm[Hg] Dr. Mathieu Virgen Work Phone: [facility] Work Phone: 01-30-2022 11:26-0400 Heart rate 83 /min Dr. Mathieu Virgen Work Phone: [facility] Work Phone: 01-30-2022 11:26-0400 Respiratory rate 22 /min Dr. Mathieu Virgen Work Phone: [facility] Work Phone: 01-30-2022 11:26-0400 SaO2% (BldA) [Mass fraction] 93 % Dr. Mathieu Virgen Work Phone: [facility] Work Phone: 01-30-2022 11:26-0400 Systolic blood pressure 126 mm[Hg] Dr. Mathieu Virgen Work Phone: [facility] Work Phone: 01-27-2022 14:46-0400 Body temperature 97.9 [degF] Saad Park FOXING CLOSER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: [facility] 01-27-2022 14:46-0400 Body weight 136.62 kg Saad Park FOXING CLOSER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: [facility] 01-27-2022 14:46-0400 Diastolic blood pressure 74 mm[Hg] Saad King FOXING CLOSER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: [facility] 01-27-2022 14:46-0400 Heart rate 85 /min Saad Park FOXING CLOSER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: [facility] 01-27-2022 14:46-0400 Respiratory rate 18 /min Saad Park FOXING CLOSER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: [facility] 01-27-2022 14:46-0400 SaO2% (BldA) [Mass fraction] 95 % Saad Park FOXING CLOSER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: [facility] 01-27-2022 14:46-0400 Systolic blood pressure 128 mm[Hg] Saad Park FOXING CLOSER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: [facility] 01-12-2022 14:41-0400 Diastolic blood pressure 75 mm[Hg] Kaitlyn [facility] Work Phone: [facility] 01-12-2022 14:41-0400 Heart rate 74 /min [facility] Work Phone: [facility] 01-12-2022 14:41-0400 Systolic blood pressure 132 mm[Hg] [facility] Work Phone: [facility] 11-30-2021 11:14-0400 Body mass index (BMI) [Ratio] 39.4 kg/m2 Dr. Mathieu Virgen Work Phone: [facility] Work Phone: 11-30-2021 11:14-0400 Body temperature 96.9 [degF] Dr. Mathieu Virgen Work Phone: [facility] Work Phone: 11-30-2021 11:14-0400 Body weight 135.[address] Mathieu Virgen Work Phone: [facility] Work Phone: 11-30-2021 11:14-0400 Diastolic blood pressure 76 mm[Hg] Dr. Mathieu Virgen Work Phone: [facility] Work Phone: 11-30-2021 11:14-0400 Heart rate 78 /min Dr. Mathieu Virgen Work Phone: [facility] Work Phone: 11-30-2021 11:14-0400 Respiratory rate 18 /min Dr. Mathieu Virgen Work Phone: [facility] Work Phone: 11-30-2021 11:14-0400 SaO2% (BldA) [Mass fraction] 92 % Dr. Mathieu Virgen Work Phone: [facility] Work Phone: 11-30-2021 11:14-0400 Systolic blood pressure 132 mm[Hg] Dr. Mathieu Virgen Work Phone: [facility] Work Phone: 11-10-2021 12:18-0500 Body weight 135.[address] Mathieu Virgen Work Phone: [facility] Work Phone: 11-10-2021 12:18-0500 Heart rate 81 /min Dr. Mathieu Virgen Work Phone: [facility] Work Phone: 11-10-2021 12:18-0500 SaO2% (BldA) [Mass fraction] 94 % Dr. Mathieu Virgen Work Phone: [facility] Work Phone: 10-26-2021 10:42-0500 Body mass index (BMI) [Ratio] 40.4 kg/m2 Dr. Mathieu Virgen Work Phone: [facility] Work Phone: 10-26-2021 10:42-0500 Body temperature 97.5 [degF] Dr. Mathieu Virgen Work Phone: [facility] Work Phone: 10-26-2021 10:42-0500 Body weight 135.[address] Mathieu Virgen Work Phone: [facility] Work Phone: 10-26-2021 10:42-0500 Diastolic blood pressure 79 mm[Hg] Dr. Mathieu Virgen Work Phone: [facility] Work Phone: 10-26-2021 10:42-0500 Heart rate 79 /min Dr. Mathieu Virgen Work Phone: [facility] Work Phone: 10-26-2021 10:42-0500 Respiratory rate 16 /min Dr. Mathieu Virgen Work Phone: [facility] Work Phone: 10-26-2021 10:42-0500 SaO2% (BldA) [Mass fraction] 94 % Dr. Mathieu Virgen Work Phone: [facility] Work Phone: 10-26-2021 10:42-0500 Systolic blood pressure 118 mm[Hg] Dr. Mathieu Virgen Work Phone: [facility] Work Phone: 10-24-2021 10:15-0500 Body mass index (BMI) [Ratio] 40.5 kg/m2 Dr. Mathieu Virgen Work Phone: [facility] Work Phone: 10-24-2021 10:15-0500 Body weight 135.[address] Mathieu Virgen Work Phone: [facility] Work Phone: 10-24-2021 10:15-0500 Diastolic blood pressure 65 mm[Hg] Dr. Mathieu Virgen Work Phone: [facility] Work Phone: 10-24-2021 10:15-0500 Heart rate 76 /min Dr. Mathieu Virgen Work Phone: [facility] Work Phone: 10-24-2021 10:15-0500 Respiratory rate 24 /min Dr. Mathieu Virgen Work Phone: [facility] Work Phone: 10-24-2021 10:15-0500 SaO2% (BldA) [Mass fraction] 95 % Dr. Mathieu Virgen Work Phone: [facility] Work Phone: 10-24-2021 10:15-0500 Systolic blood pressure 123 mm[Hg] Dr. Mathieu Virgen Work Phone: [facility] Work Phone: Encounters Encounter Date Encounter Type Care Provider Facility Start: 07-31-2025 ambulatory Eduardo Sweet Facility :[facility] Start: 07-24-2025 End: 07-24-2025 ambulatory ANOOP PHILIP Facility:[facility] Start: 07-24-2025 Encounter for other specified special examinations ANOOP PHILIP [facility] Start: 07-08-2025 End: 07-08-2025 ambulatory Megan Macario Facility:[facility] Start: 06-25-2025 End: 06-25-2025 ambulatory MATHIEU VIRGEN Facility:[facility] Start: 06-12-2025 End: 06-12-[address] Mathieu Virgen MD Work Phone: -Laboratory Start: 06-12-2025 End: 06-12-[address] Mathieu Virgen MD -Laboratory Work Phone: Start: 06-12-2025 End: 06-12-2025 ambulatory MATHIEU VIRGEN Facility:[facility] Start: 06-11-2025 End: 06-11-2025 Patient encounter procedure Tierra Gilbert [place] -[facility] Work Phone: Start: 06-11-2025 End: 06-12-[address] Mathieu Virgen MD Work Phone: -[facility] Start: 06-02-2025 End: 06-02-2025 Patient Outreach Mathieu Virgen MD Work Phone: [facility] Comment on above: Transition Of Care ( Chest pain [facility] 05/31-06/01) Start: 06-01-20[facility] Start: 06-01-2025 Non-patient / Non-visit Dr. Talia velazco MD -[facility] Start: 05-31-2025 End: 06-01-2025 Evaluation and management of inpatient Dr. Chilango Wheeler [facility] Work Phone: Start: 05-31-2025 End: 06-01-[address] Mathieu Virgen MD Work Phone: -Progressive Care Unit Start: 05-31-2025 End: 06-01-2025 ambulatory [facility] Facility:[facility] Start: 05-31-2025 Non-patient / [facility] Work Phone: Start: 05-04-2025 End: 05-04-2025 Patient encounter procedure Eduardo Sweet [facility] Work Phone: Start: 05-04-2025 End: 05-04-[address] Mathieu Virgen MD Work Phone: [facility] Start: 04-30-2025 Non-patient / Non-visit Dr. Thapa [facility] Work Phone: Start: 04-30-2025 Non-patient / Non-visit Dr. Edgar ryan MD -[facility] Start: 04-29-2025 End: 04-30-2025 ambulatory [facility] Facility:[facility] Start: 04-29-2025 End: 04-30-2025 Evaluation and management of inpatient Dr. Narda Prather DO -Progressive Care Unit Work Phone: Start: 04-29-2025 End: 04-30-[address] Mathieu Virgen MD Work Phone: -Progressive Care Unit Start: 04-08-2025 End: 04-08-[address] Mathieu Virgen MD Work Phone: -Laboratory Start: 04-08-2025 End: 04-08-2025 Patient encounter procedure HARBOR DEPARTMENT MANAGER Megan Macario -Laboratory Work Phone: Start: 04-08-2025 End: 04-08-2025 Patient encounter procedure HARBOR DEPARTMENT MANAGER Megan Macario -[facility] Work Phone: Start: 04-08-2025 End: 04-08-[address] Mathieu Virgen MD Work Phone: -[facility] Start: 04-08-2025 End: 04-08-2025 ambulatory Megan Macario Facility:[facility] Start: 04-02-2025 End: 04-03-2025 Telephone encounter Mathieu Virgen MD Work Phone: [facility] Comment on above: Patient Assistance ( [employer] form for basaglar) Start: 04-01-2025 End: 04-01-[address] Mathieu Virgen MD Work Phone: -Cat Scan [facility] Start: 04-01-2025 End: 04-01-2025 Patient encounter procedure HARBOR DEPARTMENT MANAGER Megan Macario -Cat Scan [facility] Work Phone: Start: 04-01-2025 End: 04-01-2025 ambulatory Megan Macario Facility:[facility] Start: 03-27-2025 End: 03-27-2025 ambulatory Mathieu Virgen MD Work Phone: [facility] Comment on above: New Pharmacy Refill Request; refi ll status Start: 03-02-2025 ambulatory Megan Macario Facili ty:[facility] Start: 03-02-2025 Non-patient / Non-visit Dr. Marvin Morse own DO -[facility] Start: 02-26-2025 End: 02-26-[address] Mathieu Virgen MD Work Phone: [facility] Work Phone: Start: 02-26-2025 End: 02-26-2025 Patient encounter procedure HARBOR DEPARTMENT MANAGER Megan Macario -Pulmonary Services/Neurology Work Phone: Start: 02-26-2025 End: 02-26-2025 ambulatory Megan Macario Facility:[facility] Start: 02-11-2025 End: 02-11-2025 Telephone encounter Mathieu Virgen MD Work Phone: [facility] Comment on above: FYI-No Action Needed (Diabetes note sent to DME) Start: 02-06-2025 End: 05-01-2025 Telephone encounter Mathieu Virgen MD Work Phone: [facility] Comment on above: Results Start: 01-30-2025 End: 02-02-2025 Follow-up encounter Jamal Mace Work Phone: Podiatry Start: 01-30-2025 Non-patient / Non-visit Dr. Marvin Morse own DO -[facility] Start: 01-30-2025 End: 01-30-[address] 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) Start: 01-26-2025 End: 01-26-2025 ambulatory MATHIEU VIRGEN Facility:[facility] Start: 01-26-2025 End: 01-26-2025 Patient encounter procedure Sergey Carreon HARBOR DEPARTMENT MANAGER-[facility] Work Phone: Start: 01-26-2025 End: 01-26-2025 ambulatory Sergey Carreon HARBOR DEPARTMENT MANAGER [place] [place] Start: 01-23-2025 End: 01-23-2025 ambulatory Mathieu Virgen MD Work Phone: [facility] Comment on above: labs Start: 01-23-2025 End: 01-23-2025 E-mail encounter from caregiver Mathieu Virgen MD Work Phone: [facility] Start: 01-22-2025 End: 01-22-2025 Subsequent hospital visit by physician Dominick [facility] Work Phone: Radiology Comment on above: Closed fracture of f oot, unspecified laterality, initial encounter [S92.909A] Start: 01-22-2025 End: 01-22-2025 Patient encounter procedure Jamal Mace Work Phone: Podiatry Comment on above: Closed fracture of f oot, unspecified laterality, initial encounter Start: 01-22-2025 End: 01-22-2025 ambulatory JAMAL MACE Facility:[facility] Start: 01-22-2025 End: 01-22-2025 Telephone encounter Mathieu Virgen MD Work Phone: [facility] Start: 01-21-2025 End: 01-21-[address] Mathieu Virgen MD Work Phone: [facility] Work Phone: Start: 01-21-2025 End: 01-21-[address] Mathieu Virgen MD -Laboratory Work Phone: Start: 01-21-2025 End: 01-21-2025 Patient encounter procedure ARSALAN Macario [facility] Work Phone: Start: 01-21-2025 End: 01-21-2025 ambulatory Megan Macario [place] [place] Start: 01-21-2025 End: 01-21-2025 ambulatory [facility] Facility:[facility] Start: 01-19-2025 End: 01-20-2025 Emergency department patient visit Dr. Abraham Green -Emergency Department Work Phone: Start: 01-13-2025 End: 01-13-2025 Refill Mathieu Virgen MD Work Phone: [facility] Comment on above: Refill Request Start: 01-12-2025 End: 01-12-2025 Subsequent hospital visit by physician Xr [facility] Work Phone: Radiology Comment on above: Contusion of left fo ot, subsequent encounter [S90.32XD] Start: 01-12-2025 End: 01-12-2025 Patient encounter procedure Mathieu Virgen MD Work Phone: [facility] Comment on above: Contusion of left fo ot, subsequent encounter (Primary Dx); Foot pain, left Start: 01-12-2025 End: 01-12-2025 ambulatory [facility] Facility:[facility] Start: 01-12-2025 End: 01-16-2025 Telephone encounter Mathieu Virgen MD Work Phone: [facility] Comment on above: Results Start: 12-11-2024 End: 12-11-[address] Devante Ponce MD -[facility] Work Phone: Start: 12-11-2024 End: 12-11-2024 ambulatory Devante Ponce [place] [place] Start: 12-03-2024 End: 12-04-2024 Telephone encounter Mathieu Virgen MD Work Phone: [facility] Comment on above: Insurance Authorizat ion Start: 12-02-2024 End: 12-02-2024 ambulatory [facility] Facility:[facility] Start: 12-02-2024 End: 12-02-2024 Patient encounter procedure Mathieu Virgen MD Work Phone: [facility] Comment on above: Acute diastolic CHF (congestive [...] Mathieu Virgen MD Work Phone: [facility] Comment on above: Results Start: 11-28-2024 End: 11-28-[address] Mathieu Virgen MD Work Phone: [facility] Work Phone: Start: 11-28-2024 End: 11-28-[address] Mathieu Virgen MD -Laboratory Work Phone: Start: 11-27-2024 End: 11-27-2024 Telephone encounter Mathieu Virgen MD Work Phone: [facility] Comment on above: Orders Start: 11-27-2024 End: 11-28-[address] Mathieu Virgen MD Work Phone: [facility] Work Phone: Start: 11-27-2024 End: 11-27-[address] Mathieu Virgen MD -Laboratory Work Phone: Start: 11-26-2024 End: 11-27-2024 ambulatory Mathieu Virgen MD Work Phone: [facility] Start: 11-26-2024 End: 11-27-2024 Patient encounter procedure Mathieu Virgen MD Work Phone: [facility] Comment on above: Clinic Code Start: 11-26-2024 End: 11-26-2024 Telephone encounter Mathieu Virgen MD Work Phone: [facility] Comment on above: Medication Problem Start: 11-24-2024 End: 11-24-2024 Telephone encounter Mathieu Virgen MD Work Phone: [facility] Comment on above: requesting medicatio n that is Start: 11-13-2024 End: 11-13-2024 ambulatory Mathieu Virgen MD Work Phone: [facility] Comment on above: Lab Work Start: 11-12-2024 End: 11-24-2024 Telephone encounter Mathieu Virgen MD Work Phone: [facility] Comment on above: Medication Question Start: 11-10-2024 End: 11-10-2024 Patient encounter procedure ARSALAN Macario -Sleep Lab Work Phone: Start: 11-10-2024 End: 11-10-2024 ambulatory Mathieu Virgen Facility:[facility] Start: 11-03-2024 End: 11-03-2024 Emergency department patient visit Dr. 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: [facility] Comment on above: Essential hypertensi on (Primary Dx); Paroxysmal atrial fibrillation (HCC); Dizziness; Systolic congestive heart failure, unspecified HF chronicity (HCC) Start: 10-31-2024 End: 10-31-2024 Telephone encounter Mathieu Virgen MD Work Phone: [facility] Comment on above: Appointment Start: 10-23-2024 End: 10-23-2024 Patient encounter procedure ARSALAN Macario -Sleep Lab Work Phone: Start: 10-23-2024 End: 10-23-2024 ambulatory [facility] Facility:[facility] Start: 10-16-2024 End: 10-16-2024 Telephone encounter Mathieu Virgen MD Work Phone: [facility] Comment on above: Dexcom G7 sensors / issue Start: 10-08-2024 End: 10-09-2024 Refill Mathieu Virgen MD Work Phone: [facility] Comment on above: Refill Request Start: 10-07-2024 End: 10-07-2024 Patient encounter procedure Tierra Gilbert PA -Laboratory Work Phone: Start: 10-07-2024 End: 10-07-2024 ambulatory Tierra KIRKPATRICK Facility:[facility] Start: 09-23-2024 End: 09-23-2024 Patient encounter procedure Tierra KIRKPATRICK -[facility] Work Phone: Start: 09-23-2024 End: 09-23-2024 ambulatory Tierra KIRKPATRICK [place] [place] Start: 09-23-2024 End: 09-23-2024 Office outpatient visit 15 minutes Denisha Shepard FOXING CLOSER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: [facility] Comment on above: Dizziness (Primary D x); Chest pain, unspecified type Start: 09-23-2024 End: 09-23-2024 ambulatory DENISHA SHEPARD Facility:[facility] Start: 09-22-2024 End: 09-23-2024 Telephone encounter Denisha Shepard APRN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: [facility] Comment on above: Patient Update; Appo intment Start: 09-20-2024 End: 09-20-2024 Emergency department patient visit Dr. Reji Smith MD -Emergency Department Work Phone: Start: 09-03-2024 End: 09-03-2024 Patient encounter procedure Sergey MUNGUIA [facility] Work Phone: Start: 09-03-2024 End: 09-03-2024 ambulatory [facility] Facility[place] [place] Start: 09-02-2024 End: 09-02-2024 ambulatory Mathieu Virgen MD Work Phone: [facility] Comment on above: Constipation Start: 09-01-2024 End: 09-01-2024 Emergency department patient visit Mani Esquivel DO -Emergency Department Work Phone: Start: 08-25-2024 End: 08-25-2024 Patient encounter procedure HARBOR DEPARTMENT MANAGER Megan Macario -Sleep Lab Work Phone: Start: 08-25-2024 End: 08-25-2024 ambulatory Megan Macario Facility:[facility] Start: 08-22-2024 End: 08-25-2024 Refill Julianna A Suppan FOXING CLOSER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: [facility] Comment on above: Refill Request Start: 08-18-2024 End: 08-18-2024 Telephone encounter Mathieu Virgen MD Work Phone: [facility] Comment on above: Orders Start: 08-15-2024 End: 08-15-2024 Refill Julianna A Suppan FOXING CLOSER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: [facility] Comment on above: Refill Request CGM Order Start: 08-13-2024 End: 08-13-2024 Patient encounter procedure Sergey Carreon HARBOR DEPARTMENT MANAGER-C [facility] Work Phone: Start: 08-13-2024 End: 08-13-2024 ambulatory Mathieu Virgen Facility:[facility] Start: 08-11-2024 End: 08-11-2024 Patient encounter procedure Sergey Carreon HARBOR DEPARTMENT MANAGER-C -Laboratory Work Phone: Start: 08-11-2024 End: 08-11-2024 Telephone encounter Mathieu Virgen MD Work Phone: [facility] Comment on above: Patient Update Start: 08-11-2024 End: 08-11-2024 ambulatory Sergey Carreon HARBOR DEPARTMENT MANAGER Facility:[facility] Start: 08-05-2024 End: 08-08-2024 Nurse Triage Nurse Intm/Famp Triage [facility] Work Phone: Nurse Phone Triage Comment on above: Oxygen Order Request Scooter Start: 08-02-2024 End: 08-04-2024 ambulatory Mathieu Virgen MD Work Phone: [facility] Comment on above: Dexcom G7 CGM Start: 08-01-2024 End: 08-01-2024 Refill Mathieu Virgen MD Work Phone: [facility] Comment on above: Refill Request Start: 07-31-2024 End: 08-01-2024 Telephone encounter Julianna Hood APRN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: [facility] Start: 07-31-2024 End: 07-31-2024 ambulatory Mathieu Virgen Facility:[facility] Start: 07-31-2024 End: 07-31-2024 ambulatory Julianna Suppan Facility:[facility] Start: 07-29-2024 End: 07-29-2024 Office outpatient visit 25 minutes Julianna Hood FOXING CLOSER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: [facility] Comment on above: Type 2 diabetes debbie itus with microalbuminuria (HCC) (Primary Dx); Systolic congestive heart failure, unspecified HF chronicity (HCC); Essential hypertension; Paroxysmal atrial fibrillation (HCC); Restrictive lung disease; Schizophrenia, chronic condition (HCC); Chronic anticoagulation; Diastolic congestive heart failure, unspecified HF chronicity (HCC); Iron deficiency anemia, unspecified iron deficiency anemia type; Vitamin B12 deficiency Start: 07-28-2024 End: 07-28-2024 ambulatory Julianna Suppan Facility:[facility] Start: 07-23-2024 ambulatory Talia John Facility:[facility] Start: 07-22-2024 ambulatory Miley Michael [facility] Start: 07-22-2024 End: 07-25-2024 Evaluation and management of inpatient Miley Michael Facility:[facility] Start: 07-09-2024 End: 07-09-2024 Refill Mathieu Virgen MD Work Phone: [facility] Comment on above: Refill Request Start: 06-23-2024 End: 06-23-2024 Patient encounter procedure Abril Duval APRN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: Neurology Comment on above: Snoring (Primary Dx) ; Witnessed episode of apnea; Nocturnal leg movements; Frequent nocturnal awakening; Nocturia Start: 06-23-2024 End: 06-24-2024 Telephone encounter Mathieu Virgen MD Work Phone: [facility] Comment on above: Results Start: 06-20-2024 End: 06-20-2024 Refill Zoila Wright APRN.CNP Work Phone: [facility] Comment on above: Refill Request Essential hypertensi [...] Mathieu Virgen MD Work Phone: [facility] Comment on above: Patient Question Start: 06-17-2024 End: 06-17-2024 Telephone encounter Mathieu Virgen MD Work Phone: [facility] Start: 06-16-2024 End: 06-16-2024 ambulatory Mathieu Virgen MD Work Phone: [facility] Comment on above: Scooter Start: 06-08-2024 End: 06-09-2024 Refill Mathieu Virgen MD Work Phone: [facility] Comment on above: Refill Request Start: 05-31-2024 End: 05-31-2024 ambulatory Narda Theodore RN NURSE CYBER SECURITY ARCHITECT Comment on above: Dizziness Start: 05-31-2024 End: 05-31-2024 Patient encounter procedure Estela Oliva APRN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: [facility] Comment on above: Generalized weakness (Primary Dx) Start: 05-07-2024 End: 05-07-2024 Chart abstracting Mathieu Virgen MD Work Phone: Family [facility] Start: 05-05-2024 End: 05-05-2024 Refill Mathieu Virgen MD Work Phone: [facility] Comment on above: Refill Request Start: 04-14-2024 Refill Mathieu Virgen MD Work Phone: [facility] Comment on above: Refill Request Start: 04-12-2024 End: 04-12-2024 Emergency department patient visit MELVIN BINGHAM Facility:[facility] Start: 04-11-2024 ambulatory Randi Turner RN NURSE CYBER SECURITY ARCHITECT Comment on above: Patient Update; Bloo d In Urine Encounter for medica l assessment (Primary Dx) Start: 04-11-2024 Patient encounter status Mariaelena Curry DO Work Phone: [facility] Work Phone: Start: 04-11-2024 Telemedicine consult ation with patient Mariaelena Curry DO Work Phone: [facility] Start: 04-10-2024 Refill Mathieu Virgen MD Work Phone: [facility] Comment on above: Refill Request Start: 04-09-2024 End: 04-09-2024 Office outpatient visit 15 minutes Andrew Guallpa APRN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: [facility] Comment on above: Abrasion of left verma d, initial encounter (Primary Dx) Start: 04-08-2024 ambulatory Mathieu Virgen MD Work Phone: [facility] Comment on above: Scooter Start: 03-21-2024 ambulatory Osvaldo ruth PA-C Work Phone: [facility] Comment on above: Test Results Start: 03-21-2024 Telephone encounter Osvaldo KIRKPATRICK-C Work Phone: [facility] Start: 03-19-2024 Telephone encounter Osvaldo ChengKelvinpatsy SNYDERC Work Phone: [facility] Comment on above: Results Start: 03-06-2024 Refill Zoila Wright APRN.CNP Work Phone: [facility] Comment on above: Refill Request Start: 02-28-2024 End: 02-28-2024 Patient encounter procedure Osvaldo Warren Thaddeus SNYDERC Work Phone: [facility] Comment on above: 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); Venous incompetence; Bilateral leg edema; SOB (shortness of breath); Weight gain; CJ (obstructive sleep apnea); Hypersomnolence; Cushingoid facies Start: 02-12-2024 End: 02-12-2024 ambulatory Nurse Intm/Famp Triage [facility] Work Phone: Nurse Phone Triage Start: 02-12-2024 End: 02-12-2024 Telephone follow-up Nurse Intm/Famp Triage [facility] Work Phone: Nurse Phone Triage Comment on above: Follow Up Start: 02-10-2024 ambulatory Osvaldo Kelvin Brett ruth PA-C Work Phone: [facility] Start: 02-10-2024 Follow-up encounter [facility]valdo Warren Thaddeus [facility]DERC [facility] Comment on above: Follow Up Weight Start: 02-04-2024 ambulatory Mathieu Virgen MD Work Phone: [facility] Comment on above: Edema Start: 02-04-2024 End: 02-04-2024 Subsequent hospital visit by physician Xr [facility] Work Phone: Radiology Comment on above: SOB (shortness of br eath) [R06.02] Start: 02-04-2024 End: 02-04-2024 Patient encounter procedure Osvaldo Kelvin Travis [facility]-C [facility] Comment on above: SOB (shortness of br eath) (Primary Dx); Bilateral leg edema; Weight increase Start: 01-26-2024 ambulatory Mathieu Virgen MD Work Phone: [facility] Comment on above: ACCU CHECK TEST STRI PS Start: 01-18-2024 Refill Pio Nicole MD Work Phone: [facility] Comment on above: Refill Request Famotidine Start: 01-09-2024 Refill Zoila Wright APRN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: [facility] Comment on above: Refill Request Start: 01-01-2024 ambulatory Mathieu Virgen MD Work Phone: [facility] Comment on above: Scooter Start: 01-01-2024 Telephone encounter Mathieu Virgen MD Work Phone: [facility] Comment on above: Marlone Carlos PA donovan er Start: 12-30-2023 ambulatory Mathieu Virgen MD Work Phone: [facility] Comment on above: Scooter Start: 12-25-2023 End: 12-25-2023 Patient encounter procedure Mtahieu Virgen MD Work Phone: [facility] Comment on above: Paroxysmal atrial [...] Refill Mathieu Virgen MD Work Phone: [facility] Comment on above: Refill Request Medication Question Orders Start: 11-02-2023 Refill Osvaldo ruth PA-C Work Phone: [facility] Comment on above: Refill Request Start: 10-12-2023 Refill Mathieu Virgen MD Work Phone: [facility] Comment on above: Refill Request Start: 09-22-2023 End: 09-22-2023 Emergency department patient visit [facility] Work Phone: Start: 09-06-2023 End: 09-06-2023 Subsequent hospital visit by physician Xr [facility] Work Phone: Radiology Comment on above: Sinobronchitis [J32. 9, J40] Start: 09-06-2023 ambulatory Mathieu Virgen MD Work Phone: [facility] Comment on above: Coughing Up Blood Start: 08-27-2023 Refill Mathieu Virgen MD Work Phone: [facility] Comment on above: Refill Request Start: 08-07-2023 Telephone encounter Mathieu Virgen MD Work Phone: [facility] Comment on above: Patient Assistance ( [employer] (Basaglar and Humalog)) Start: 07-23-2023 End: 07-23-2023 Subsequent hospital visit by physician Xr [facility] Work Phone: Radiology Comment on above: Acute hip pain, righ t [M25.551] Start: 07-23-2023 End: 07-23-2023 Patient encounter procedure Pio Nicole MD Work Phone: [facility] Comment on above: Acute hip pain, righ t (Primary Dx) Start: 07-13-2023 Telephone encounter Mathieu Virgen MD Work Phone: [facility] Start: 07-11-2023 End: 07-11-2023 Patient encounter procedure [facility], Specimen Work Phone: Start: 06-26-2023 End: 06-26-2023 ambulatory [facility] Work Phone: Start: 06-26-2023 End: 06-26-2023 Patient encounter procedure [facility], Specimen Work Phone: Start: 06-19-2023 Refill Mathieu Virgen MD Work Phone: [facility] Comment on above: Refill Request Start: 06-09-2023 ambulatory Adele murrieta RN NURSE CYBER SECURITY ARCHITECT Comment on above: Viral Syndrome Start: 06-09-2023 End: 06-09-2023 Subsequent hospital visit by physician Dominick [facility] Work Phone: Radiology Comment on above: Viral URI with cough [J06.9] Start: 06-09-2023 End: 06-09-2023 Patient encounter procedure Pio Nicole MD Work Phone: [facility] Comment on above: Viral URI with cough (Primary Dx); Suspected COVID-19 virus infection; Bronchitis Start: 06-07-2023 Refill Mathieu Virgen MD Work Phone: [facility] Comment on above: Refill Request Start: 06-06-2023 End: 06-06-2023 Patient encounter procedure Mathieu Virgen MD Work Phone: [facility] Comment on above: Essential hypertensi on (Primary Dx); Encounter for immunization; Paroxysmal atrial fibrillation (HCC); Mixed hyperlipidemia; Schizophrenia, chronic condition (HCC); Chronic anticoagulation; Type 2 diabetes mellitus with microalbuminuria, with long-term current use of insulin (HCC); Restrictive lung disease Start: 06-04-2023 Telephone encounter Mathieu Virgen MD Work Phone: [facility] Comment on above: patient question/lab s Start: 05-18-2023 End: 05-18-2023 Patient encounter procedure Osvaldo Travis PA-C Work Phone: [facility] Comment on above: Near syncope (Primar y Dx); Fall, initial encounter; Acute upper respiratory infection; Morbid obesity (HCC) Start: 05-16-2023 Refill Mathieu Virgen MD Work Phone: [facility] Comment on above: Refill Request Start: 05-11-2023 Telephone encounter Mathieu Virgen MD Work Phone: [facility] Comment on above: Forms Start: 05-01-2023 End: 05-01-2023 Patient encounter procedure Osvaldo Traivs PA-C Work Phone: [facility] Comment on above: Encounter for post s urgical wound check (Primary Dx) Start: 04-30-2023 End: 04-30-2023 Patient encounter procedure Osvaldo Kelvin Travis PA-C Work Phone: [facility] Comment on above: Inflamed acrochordon (Primary Dx); Seborrheic keratoses, inflamed Start: 04-26-2023 ambulatory Mathieu Virgen MD Work Phone: [facility] Comment on above: Skin Tags Removal Start: 04-12-2023 Refill Mathieu Virgen MD Work Phone: [facility] Comment on above: Refill Request Start: 03-31-2023 End: 03-31-2023 Emergency department patient [facility]: Start: 03-19-2023 ambulatory Mathieu Virgen MD Work Phone: [facility] [place] Start: 03-19-2023 Patient encounter procedure Shannon Virgen MD Work Phone: [facility] Comment on above: Appointment Start: 03-05-2023 End: 03-05-2023 Office outpatient visit 15 minutes Andrew Guallpa APRN.CNP Work Phone: [facility] Comment on above: Acute constipation ( Primary Dx) Start: 03-02-2023 End: 03-02-2023 Patient encounter procedure Mathieu Virgen MD Work Phone: [facility] Comment on above: Nausea (Primary Dx); Hypoglycemia; Type 2 diabetes mellitus with microalbuminuria, with long-term current use of insulin (HCC); Leukocytosis, unspecified type; Abnormal serum level of lipase; Benign prostatic hyperplasia with lower urinary tract symptoms, symptom details unspecified; Urinary retention Start: 03-01-2023 End: 03-01-2023 Emergency department patient visit Dr. Matheiu [facility]gen [facility] Start: 03-01-2023 End: 03-01-[address] Mathieu Virgen [facility] Start: 02-24-2023 End: 02-25-2023 Emergency department patient visit Dr. Mathieu Virgen Work Phone: [facility] Start: 02-22-2023 Refill Mathieu Virgen MD Work Phone: [facility] Comment on above: Refill Request (medi cation question ) Start: 02-16-2023 End: 02-16-2023 Subsequent hospital visit by physician Xr [facility] Work Phone: Radiology Comment on above: Acute left ankle stone n [M25.572] Start: 02-16-2023 End: 02-16-2023 Office outpatient visit 15 minutes Denisha Shepard APRN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: [facility] Comment on above: Acute left ankle stone n (Primary Dx) Start: 02-16-2023 Telephone encounter Denisha hess APRN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: [facility] Comment on above: Results Start: 02-16-2023 Unlisted evaluation and management service Denisha Shepard APRN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: [facility] Comment on above: Opened In Error Start: 02-14-2023 End: 02-14-2023 Nursing evaluation of patient and report Nurse Jerilyn [facility] Work Phone: General Surgery Comment on above: Lesion of subcutaneo us tissue (Primary Dx) Start: 01-19-2023 End: 01-19-2023 Patient encounter procedure Mathieu Virgen MD Work Phone: [facility] Comment on above: Skin mass (Primary D x) Start: 11-29-2022 End: 11-29-2022 Patient encounter procedure Mathieu Virgen MD Work Phone: [facility] Comment on above: Chest pain, unspecif ied type (Primary Dx); Leukocytosis, unspecified type; Type 2 diabetes mellitus with microalbuminuria, with long-term current use of insulin (HCC); Schizophrenia, chronic condition (HCC); Paroxysmal atrial fibrillation (HCC); Essential hypertension; Pure hypercholesterolemia Start: 11-25-2022 Telephone encounter Mathieu Virgen MD Work Phone: [facility] Comment on above: Orders Start: 11-22-2022 Patient Outreach Mathieu kennedy MD Work Phone: [facility] Comment on above: Transition Of Care ( [facility] 11/21-11/21 dx: chest pain) Start: 11-21-2022 Non-patient / Non-visit Dr. Shannon Virgen Work Phone: [facility] Start: 11-21-2022 Non-patient / Non-visit Dr. Shannon Virgen Work Phone: [facility] Inpatient Phys[facility] Start: 11-21-2022 End: 11-21-2022 Evaluation and management of inpatient Dr. Mathieu Virgen Work Phone: [facility] Start: 11-21-2022 End: 11-21-[address] Mathieu Virgen Work Phone: [facility] Work Phone: Start: 11-20-2022 End: 11-21-2022 Emergency department patient visit Dr. Mathieu Virgen Work Phone: [facility] Start: 11-10-2022 Refill Mathieu Virgen MD Work Phone: [facility] Comment on above: Refill Request Start: 10-26-2022 Telephone encounter Kaitlyn kennedy [facility] Work Phone: [facility] Comment on above: Medication Question Start: 10-26-2022 End: 10-26-[address] Mathieu Virgen Work Phone: [facility] Start: 10-16-2022 ambulatory Kaitlyn Hernández [facility] Work Phone: [facility] Comment on above: Carmela mustafa trial ca rd Start: 10-16-2022 E-mail encounter deloris bean caregiver Kaitlyn Hernández [facility] Work Phone: [facility] Start: 10-16-2022 Telephone encounter Kaitlyn kennedy [facility] Work Phone: [facility] Comment on above: Medication Question Start: 10-03-2022 Refill Mathieu Virgen MD Work Phone: [facility] Comment on above: Refill Request Start: 09-29-2022 Telephone encounter Kaitlyn kennedy [facility] Work Phone: [facility] Comment on above: Medication Question Start: 09-25-2022 Telephone encounter Mathieu Virgen MD Work Phone: [facility] Comment on above: [employer] Forms for Insulin Start: 08-21-2022 Refill Mathieu Virgen MD Work Phone: [facility] Comment on above: Refill Request Start: 08-08-2022 End: 08-08-2022 Emergency department patient visit Dr. Mathieu Virgen [facility] Start: 08-07-2022 ambulatory Mathieu Virgen MD Work Phone: [facility] Comment on above: Insulin Needle broke in stomach Start: 06-22-2022 Telephone encounter Kaitlyn kennedy [facility] Work Phone: [facility] Comment on above: Forms (Wilmar rodriguez ient assistance application) Start: 06-22-2022 End: 06-22-2022 Patient encounter procedure Kaitlyn Hernández [facility] Work Phone: [facility] Comment on above: Type 2 diabetes debbie itus without complication, with long-term current use of insulin (HCC) (Primary Dx) Start: 05-31-2022 End: 05-31-2022 Patient encounter procedure Mathieu Virgen MD Work Phone: [facility] Comment on above: Essential hypertensi on (Primary Dx); Paroxysmal atrial fibrillation (HCC); Pure hypercholesterolemia; Type 2 diabetes mellitus with microalbuminuria, with long-term current use of insulin (HCC); Chronic anticoagulation; Monocytosis; Need for influenza vaccination Start: 05-08-2022 Refill Mathieu Virgen MD Work Phone: [facility] Comment on above: Refill Request Start: 05-04-2022 End: 05-04-[address] Mathieu Virgen Work Phone: [facility] Start: 04-08-2022 End: 04-08-2022 Emergency department patient visit Dr. Mathieu Virgen Work Phone: [facility] Start: 04-08-2022 End: 04-08-2022 Patient encounter procedure Andrew Guallpa APRN.[facility] Work Phone: [facility] Comment on above: Chest pain, unspecif ied type (Primary Dx); Accidental medication error, initial encounter Start: 03-23-2022 Telephone encounter Kaitlynaggie Cuevasjose kennedy [facility] Work Phone: [facility] Comment on above: Forms (Basaglar PAP) Start: 03-23-2022 End: 03-23-2022 Patient encounter procedure Kaitlynaggie Cuevasgo [facility] Work Phone: [facility] Comment on above: Type 2 diabetes debbie itus without complication, with long-term current use of insulin (HCC) (Primary Dx); Essential hypertension Start: 03-06-2022 Telephone encounter Mathieu Virgen MD Work Phone: [facility] Comment on above: Forms (Sang[employer] Cares a pplication) Medication Question Start: 03-03-2022 End: 03-03-2022 Patient encounter procedure Mathieu Virgen MD Work Phone: [facility] Comment on above: Essential hypertensi on (Primary Dx); Pure hypercholesterolemia; Paroxysmal atrial fibrillation (HCC); Type 2 diabetes mellitus with microalbuminuria, with long-term current use of insulin (HCC); Chronic anticoagulation; Need for hepatitis C screening test Start: 03-02-2022 End: 03-02-[address] Mathieu Virgen [facility] Start: 02-09-2022 Telephone encounter Mathieu Virgen MD Work Phone: [facility] Comment on above: indigent med Start: 02-07-2022 End: 02-07-[address] Mathieu Virgen Work Phone: [facility] Start: 02-06-2022 Telephone encounter Mathieu Virgen MD Work Phone: [facility] Comment on above: Patient Request Start: 02-03-2022 End: 02-03-2022 Patient encounter procedure Papito Castano Work Phone: [facility] Comment on above: Gastrocnemius tear, right, initial encounter (Primary Dx) Start: 02-02-2022 Refill Mathieu Virgen MD Work Phone: [facility] Comment on above: Refill Request Start: 02-01-2022 Refill Mathieu Virgen MD Work Phone: [facility] Comment on above: Refill Request (michael ent assistance ) Start: 01-31-2022 Refill Mathieu Virgen MD Work Phone: [facility] Comment on above: Prescription Refills Start: 01-30-2022 End: 01-30-[address] Mathieu Virgen Work Phone: [facility] Start: 01-27-2022 End: 01-27-2022 Patient encounter procedure Saad Park APRN.CNP Work Phone: [facility] Comment on above: Strain of calf muscl e, right, initial encounter (Primary Dx) Start: 01-12-2022 End: 01-12-2022 Patient encounter procedure Kaitlyn Edgar [facility] Work Phone: [facility] Comment on above: Type 2 diabetes debbie itus without complication, with long-term current use of insulin (HCC) (Primary Dx) Refill Request Start: 12-30-2021 Telephone encounter Mathieu Virgen MD Work Phone: [facility] Comment on above: Medication Problem Start: 12-29-2021 Refill Mathieu Virgen MD Work Phone: [facility] Comment on above: Refill Request Start: 12-15-2021 Telephone encounter Kaitlyn kennedy [facility] Work Phone: [facility] Comment on above: Forms (Jardiance PAP ) Start: 12-13-2021 Telephone encounter Mathieu Virgen MD Work Phone: [facility] Comment on above: Medication Problem Start: 12-12-2021 Refill Mathieu Virgen MD Work Phone: [facility] Comment on above: Refill Request Start: 11-30-2021 End: 11-30-[address] Mathieu Virgen Work Phone: [facility] Start: 11-11-2021 Non-patient / Non-visit Dr. Shannon Virgen Work Phone: [facility] Start: 11-10-2021 End: 11-10-[address] Mathieu [facility] Start: 11-09-2021 Non-patient / Non-visit Dr. Shannon Virgen Work Phone: [facility] Start: 11-09-2021 End: 11-09-[address] Mathieu Virgen [facility] Start: 11-01-2021 End: 11-01-[address] Mathieu Virgen Work Phone: [facility] Start: 10-24-2021 End: 10-24-[address] Mathieu Virgen Work Phone: [facility] Start: 07-13-2021 End: 07-13-2021 Subsequent hospital visit by physician [facility] Work Phone: Radiology Comment on above: SOB (shortness of br eath) [R06.02] Start: 05-25-2021 End: 05-25-2021 Subsequent hospital visit by physician Xr [facility] Work Phone: Radiology Comment on above: phone apt Start: 01-24-2021 End: 01-24-2021 Subsequent hospital visit by physician Xr [facility] Work Phone: Radiology Comment on above: SOB [...] Work Phone: Comment on above: Performed at: [place] [id number] Director: Naresh Pruitt PhD, Phone: [phone] Start: 04-08-[address] Roxanna Virgen [...] on above: Test not performed Start: 04-08-[address] antibody measurement Dr[address] Mathieu Virgen MD Work [...] exam ches t 2 views Anum Jonatan FOXING CLOSER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: Start: 07-23-2023 Radex hip unilateral [...] ankle complete minimum 3 views Denisha Shepard FOXING CLOSER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: Start: 11-21-2022 Cardiovascular stres s [...] exam ches t 2 views Fito Haseeb FOXING CLOSER.MANUFACTURING MAINTENANCE TECHNICIAN, DNP Work Phone: Start: 07-16-2018 Adult depression screening assessment Mathieu Virgen MD Work Phone: H/O: surgery H/O wrist surgery Dr. Judi Virgen Work Phone: Laboratory test resu lt abnormal Abnormal serum level of lipase Mathieu Virgen MD Work Phone: Plan of Treatment Date Care Activity Detail Author Start: 01-26-2026 Annual PCP Team Chronic Disease Visit Annual PCP Team Chronic Disease Visit [facility] Start: 01-26-2026 BP Controlled (<130/80) BP Controlled (<130/80) [facility] Start: 01-12-2026 Annual PCP Team Chronic Disease Visit Annual PCP Team Chronic Disease Visit [facility] Start: 01-12-2026 BP Controlled (<130/80) BP Controlled (<130/80) [facility] Start: 12-02-2025 Annual PCP Team Chronic Disease Visit Annual PCP Team Chronic Disease Visit [facility] Start: 12-02-2025 Anxiety Screening Anxiety Screening [facility] Start: 12-02-2025 BP Controlled (<130/80) BP Controlled (<130/80) [facility] Start: 12-02-2025 Depression Screening Depression Screening [facility] Start: 12-02-2025 RSV Vaccine (1 - 1-dose 75+ series) RSV Vaccine (1 - 1-dose 75+ series) [facility] Comment on above: Postponed from 2019 (Declined at t his time) Start: 10-31-2025 Annual PCP Team Chronic Disease Visit Annual PCP Team Chronic Disease Visit [facility] Start: 10-31-2025 BP Controlled (<130/80) BP Controlled (<130/80) [facility] Start: 09-23-2025 Annual PCP Team Chronic Disease Visit Annual PCP Team Chronic Disease Visit [facility] Start: 09-23-2025 BP Controlled (<130/80) BP Controlled (<130/80) [facility] Start: 07-31-2025 End: 07-31-2025 Patient encounter procedure 07/31/2025 1:40 PM EST Office Visit [facility] [address] [place] [address] Mathieu Virgen MD [address] [place], [place] [id number] follow up meds [facility] Comment on above: follow up [facility] Start: 07-29-2025 BP Controlled (<130/80) BP Controlled (<130/80) [facility] Start: 07-08-2025 Measurement of respiratory function [facility] Start: 07-08-2025 End: 07-08-2025 Patient encounter procedure Departed Clinical -Pulmonary Services/Neurology Work Phone: Start: 06-20-2025 Annual PCP Team Chronic Disease Visit Annual PCP Team Chronic Disease Visit [facility] Start: 06-20-2025 Covid-19 Vaccine ( season) Covid-19 Vaccine () [facility] Comment on above: Postponed from 05/18/2024 (Declined at t his time) Start: 06-20-2025 Diabetic foot examination Diabetic Foot Exam [facility] Start: 06-20-2025 Glaucoma screening Dilated Retinal Exam [facility] Start: 06-20-2025 Shingrix Vaccine (1 of 2) Shingrix Vaccine (1 of 2) [facility] Comment on above: Postponed from 1994 (Declined at t his time) Start: 06-20-2025 Urine microalbumin profile DTaP,Tdap,Td Vaccine (1 - Tdap) [facility] Comment on above: Postponed from 1963 (Declined at t his time) Start: 06-12-2025 End: 06-12-2025 Patient encounter procedure 06/12/2025 11:00 AM EDT Office Visit [facility] [address] [place] [address] Mathieu Virgen MD [address] [facility] [place] [id number] hospital dc with [facility] 9/15 chest pain [facility] Comment on above: hospital dc with [facility] 9/15 chest pain Start: 06-11-2025 End: 06-11-2025 Evaluation of diagnostic study results [facility] Start: 06-01-2025 [facility] Start: 06-01-2025 Patient discharge [facility] Start: 05-31-2025 Following clinical pathway protocol [facility] Start: 05-31-2025 Ambulation without limitation [facility] Start: 05-31-2025 Assessment of risk of venous thromboembolism [facility] Start: 05-31-2025 Care regimes management [facility] Start: 05-31-2025 Insertion of catheter into peripheral vein [facility] Start: 05-31-2025 Measuring intake and output [facility] Start: 05-31-2025 Notification of physician [facility] Start: 05-31-2025 Oxygen therapy [facility] Start: 05-31-2025 Providing care according to standard [facility] Start: 05-31-2025 Referral to cartography professor [facility] Start: 05-31-2025 End: 05-31-2025 [facility] Start: 05-31-2025 Hospital admission, emergency, from emergency room, medical nature [facility] Start: 05-31-2025 Respiratory pathogens DNA and RNA panel - Respiratory specimen by DARRIAN with probe detection [facility] Start: 05-31-2025 Verification routine [facility] Start: 05-31-2025 Admission procedure [facility] Start: 05-31-2025 [facility] Start: 05-31-2025 Patient referral to dietitian [facility] Start: 05-18-2025 Influenza vaccination Influenza Vaccine (#1) [facility] Start: 05-13-2025 End: 08-12-2025 Hemoglobin A1c in Blood HEMOGLOBIN A1C Lab Routine 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) Essential hypertension Expected: 05/13/2025, Expires: 08/12/2025 [facility] Comment on above: Expected: 05/13/2025, Expires: Start: 05-04-2025 End: 05-04-2025 Evaluation of diagnostic study results [facility] Start: 04-30-2025 Patient discharge [facility] Start: 04-30-2025 Consultation [facility] Start: 04-29-2025 Assessment of risk of venous thromboembolism [facility] Start: 04-29-2025 Care regimes management [facility] Start: 04-29-2025 Incentive spirometry [facility] Start: 04-29-2025 Insertion of catheter into peripheral vein [facility] Start: 04-29-2025 Measuring intake and output [facility] Start: 04-29-2025 Notification of physician [facility] Start: 04-29-2025 Oxygen therapy [facility] Start: 04-29-2025 Providing care according to standard [facility] Start: 04-29-2025 Provision of activity privileges [facility] Start: 04-29-2025 Referral for physical therapy [facility] Start: 04-29-2025 Referral to occupational therapist [facility] Start: 04-29-2025 Referral to service [facility] Start: 04-29-2025 End: 04-29-2025 [facility] Start: 04-29-2025 Following clinical pathway protocol [facility] Start: 04-29-2025 [facility] Start: 04-29-2025 Cardiovascular stress test using pharmacologic stress agent Nuclear Stress Test - Chemical [facility] Start: 04-29-2025 Urinalysis complete panel - Urine [facility] Start: 04-29-2025 Verification routine [facility] Start: 04-29-2025 Admission procedure [facility] Start: 04-29-2025 Hospital admission, emergency, from emergency room, medical nature [facility] Start: 04-29-2025 [facility] Start: 02-27-2025 Annual PCP Team Chronic Disease Visit Annual PCP Team Chronic Disease Visit [facility] Start: 02-26-2025 Walking distance 6 minutes [facility] Start: 02-03-2025 Annual PCP Team Chronic Disease Visit Annual PCP Team Chronic Disease Visit [facility] Start: 02-03-2025 BP Controlled (<130/80) BP Controlled (<130/80) [facility] Start: 01-26-2025 End: 01-26-2025 Patient encounter procedure 01/26/2025 2:40 PM EDT Office Visit [facility] [address] [place] [address] Mathieu Virgen MD [address] [place] [address] Blood sugar regulation, blood pressure not too low [facility] Comment on above: Blood sugar regulation, blood pressure n ot too low Start: 01-22-2025 End: 01-22-2025 Patient encounter procedure 01/22/2025 3:15 PM EDT Office Visit Podiatry [address] [place] [address] Jamal Mace [address] [place] [address] left foot fracture Podiatry Comment on above: left foot fracture Start: 01-20-2025 [facility] Start: 01-19-2025 [facility] Start: 12-24-2024 Annual PCP Team Chronic Disease Visit Annual PCP Team Chronic Disease Visit [facility] Start: 12-24-2024 Anxiety Screening Anxiety Screening [facility] Start: 12-24-2024 Covid-19 Vaccine () Covid-19 Vaccine () [facility] Comment on above: Postponed from 05/18/2023 (Declined at t his time) Start: 12-24-2024 Depression Screening Depression Screening [facility] Start: 12-19-2024 End: 12-19-2024 Patient encounter procedure 12/19/2024 1:40 PM EDT [facility] [address] [place] [address] Mathieu Virgen MD [address] [place] [address] 6 mo follow up [facility] Comment on above: 6 mo follow up Start: 12-09-2024 Hemoglobin A1c measurement HbA1C [facility] Start: 12-02-2024 End: 12-02-2024 Patient encounter procedure 12/02/2024 3:40 PM EDT Office Visit [facility] [address] [place], [place] [id number] Mathieu Virgen MD [address] [place] [address] All lab results Family [facility] Comment on above: All lab results Start: 12-02-2024 End: 03-03-2025 CBC W Ordered Manual Differential panel - Blood PATHOLOGIST INTERPRETATION WITH CBC AND DIFF Lab Routine Leukocytosis, unspecified type Expected: 12/02/2024, Expires: 03/03/2025 [facility] Work Phone: Comment on above: Expected: 12/02/2024, Expires: Start: 11-27-2024 End: 02-26-2025 CBC panel - Blood by Automated count COMPLETE BLOOD COUNT Lab Routine 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) Expected: 11/27/2024, Expires: 02/26/2025 [facility] Comment on above: Expected: 11/27/2024, Expires: Start: 11-27-2024 End: 02-26-2025 Comprehensive metabolic 2000 panel - Serum or Plasma COMPREHENSIVE METABOLIC PANEL Lab Routine 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) Expected: 11/27/2024, Expires: 02/26/2025 [facility] Comment on above: Expected: 11/27/2024, Expires: Start: 11-27-2024 End: 02-26-2025 Hemoglobin A1c in Blood HEMOGLOBIN A1C Lab Routine 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) Expected: 11/27/2024, Expires: 02/26/2025 [facility] Comment on above: Expected: 11/27/2024, Expires: Start: 11-27-2024 Hepatitis B screening Urine Albumin:Creatinine Ratio [facility] Start: 11-27-2024 Hepatitis B surface antibody level LDL Cholesterol [facility] Start: 11-27-2024 End: 02-26-2025 Lipid 1996 panel - Serum or Plasma LIPID PANEL BASIC Lab Routine Nonobstructive atherosclerosis of coronary artery Pure hypercholesterolemia Expected: 11/27/2024, Expires: 02/26/2025 [facility] Work Phone: Comment on above: Expected: 11/27/2024, Expires: Start: 11-27-2024 End: 02-26-2025 Microalbumin/Creatinine [Mass Ratio] in Urine ALBUMIN/CREATININE RATIO, URINE Lab Routine 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) Expected: 11/27/2024, Expires: 02/26/2025 [facility] Comment on above: Expected: 11/27/2024, Expires: Start: 11-13-2024 End: 02-12-2025 Basic metabolic 2000 panel - Serum or Plasma BASIC METABOLIC PANEL Lab Routine 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) Essential hypertension Expected: 11/13/2024, Expires: 02/12/2025 [facility] Comment on above: Expected: 11/13/2024, Expires: Start: 11-13-2024 End: 02-12-2025 CBC panel - Blood by Automated count COMPLETE BLOOD COUNT Lab Routine 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) Essential hypertension Expected: 11/13/2024, Expires: 02/12/2025 [facility] Work Phone: Comment on above: Expected: 11/13/2024, Expires: Start: 11-13-2024 End: 02-12-2025 Magnesium [Mass/volume] in Serum or Plasma MAGNESIUM Lab Routine 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) Essential hypertension Expected: 11/13/2024, Expires: 02/12/2025 [facility] Comment on above: Expected: 11/13/2024, Expires: Start: 11-07-2024 Hemoglobin A1c measurement HbA1C [facility] Start: 11-03-2024 [facility] Start: 10-31-2024 End: 10-31-2024 Patient encounter procedure 10/31/2024 1:40 PM EST Office Visit Family Medicine [facility] [address] [place] [id number] Mathieu Virgen MD [address] [place] [address] 3 month f/u [facility] Comment on above: 3 month f/u Start: 09-23-2024 Evaluation of diagnostic study results [facility] Start: 09-20-2024 [facility] Start: 09-20-2024 [facility] Start: 09-17-2024 Advance Directive Discussion Advance Directive Discussion [facility] Start: 09-17-2024 Medicare Advantage Annual Wellness Visit Medicare Advantage Annual Wellness Visit [facility] Start: 09-06-2024 Annual PCP Team Chronic Disease Visit Annual PCP Team Chronic Disease Visit [facility] Start: 09-06-2024 BP Controlled (<130/80) BP Controlled (<130/80) [facility] Start: 09-06-2024 RSV Vaccine (1 - 1-dose 60+ series) RSV Vaccine (1 - 1-dose 60+ series) [facility] Comment on above: Postponed from 2004 (Declined at t his time) Start: 09-06-2024 RSV Vaccine (1 - 1-dose 75+ series) RSV Vaccine (1 - 1-dose 75+ series) [facility] Comment on above: Postponed from 2019 (Declined at t his time) Start: 09-01-2024 [facility] Start: 07-29-2024 End: 10-28-2024 Basic metabolic 2000 panel - Serum or Plasma BASIC METABOLIC PANEL Lab Routine Systolic congestive heart failure, unspecified HF chronicity (HCC) Expected: 07/29/2024, Expires: 10/28/2024 [facility] Work Phone: Comment on above: Expected: 07/29/2024, Expires: Start: 07-29-2024 End: 10-28-2024 CBC W Auto Differential panel - Blood COMPLETE BLOOD COUNT AND DIFFERENTIAL Lab Routine Systolic congestive heart failure, unspecified HF chronicity (HCC) Expected: 07/29/2024, Expires: 10/28/2024 [facility] Comment on above: Expected: 07/29/2024, Expires: Start: 07-29-2024 End: 10-28-2024 Magnesium [Mass/volume] in Serum or Plasma MAGNESIUM Lab Routine Systolic congestive heart failure, unspecified HF chronicity (HCC) Expected: 07/29/2024, Expires: 10/28/2024 [facility] Comment on above: Expected: 07/29/2024, Expires: 5 Start: 07-25-2024 End: 07-25-2024 ambulatory 07/25/2024 1:15 PM EST Results Only [facility] [address] [place] [address] Labs [facility] Comment on above: Labs Start: 07-23-2024 Annual PCP Team Chronic Disease Visit Annual PCP Team Chronic Disease Visit [facility] Start: 07-23-2024 BP Controlled (<130/80) BP Controlled (<130/80) [facility] Start: 06-25-2024 End: 09-24-2024 Comprehensive metabolic 2000 panel - Serum or Plasma COMP METABOLIC PANEL Lab Routine Psoriatic arthritis ([facility]) Expected: 06/25/2024, Expires: 09/24/2024 [facility] Work Phone: Comment on above: Expected: 06/25/2024, Expires: Start: 06-25-2024 End: 09-24-2024 Hemoglobin A1c in Blood HGB A1C Lab Routine Type 2 diabetes mellitus without complication, with long-term current use of insulin ([facility]) Expected: 06/25/2024, Expires: 09/24/2024 [facility] Work Phone: Comment on above: Expected: 06/25/2024, Expires: Start: 06-23-2024 End: 06-23-2024 Patient encounter procedure 06/23/2024 2:30 PM EDT Office Visit Neurology [address] [place] [address] Abril Duval, PAIGE.MANUFACTURING MAINTENANCE TECHNICIAN [address] [place] [address] CJ (obstructive sleep apnea) [G47.33] Neurology Comment on above: CJ (obstructive sleep apnea) [G47.33] Start: 06-20-2024 End: 06-20-2024 Patient encounter procedure 06/20/2024 3:40 PM EDT Office Visit Family [facility] [address] [place] [address] Mathieu Virgen MD [address] [place] [address] Blood sugar levels [facility] Comment on above: Blood sugar levels Start: 06-20-2024 End: 09-19-2024 25-hydroxyvitamin D3 [Mass/volume] in Serum or Plasma [facility] Work Phone: Comment on above: Expected: 06/20/2024, Expires: Start: 06-20-2024 End: 09-19-2024 CBC W Auto Differential panel - Blood [facility] Comment on above: Expected: 06/20/2024, Expires: Start: 06-20-2024 End: 09-19-2024 Creatine kinase [Enzymatic activity/volume] in Serum or Plasma [facility] Comment on above: Expected: 06/20/2024, Expires: Start: 06-20-2024 End: 09-19-2024 Thyrotropin [Units/volume] in Serum or Plasma [facility] Comment on above: Expected: 06/20/2024, Expires: Start: 06-18-2024 Glaucoma screening Dilated Retinal Exam [facility] Start: 06-09-2024 Annual PCP Team Chronic Disease Visit Annual PCP Team Chronic Disease Visit [facility] Start: 06-09-2024 BP Controlled (<130/80) BP Controlled (<130/80) [facility] Start: 06-06-2024 3 comp foot exam completed Diabetic Foot Exam [facility] Start: 06-06-2024 Annual PCP Team Chronic Disease Visit Annual PCP Team Chronic Disease Visit [facility] Start: 06-06-2024 Diabetic foot examination Diabetic Foot Exam [facility] Start: 06-06-2024 Hepatitis B Vaccine (1 of 3 - Risk 3-dose series) Hepatitis B Vaccine (1 of 3 - Risk 3-dose series) [facility] Comment on above: Postponed from 2004 (Declined at t his time) Start: 05-18-2024 ANNUAL PCP TEAM CHRONIC DISEASE VISIT ANNUAL PCP TEAM CHRONIC DISEASE VISIT [facility] Start: 05-18-2024 BP CONTROLLED (<130/80) BP CONTROLLED (<130/80) [facility] Start: 05-18-2024 Covid-19 Vaccine ( season) Covid-19 Vaccine ( season) [facility] Start: 05-18-2024 Covid-19 Vaccine () Covid-19 Vaccine () [facility] Start: 05-18-2024 Influenza vaccination Influenza Vaccine (#1) [facility] Start: 05-01-2024 ANNUAL PCP TEAM CHRONIC DISEASE VISIT ANNUAL PCP TEAM CHRONIC DISEASE VISIT [facility] Start: 05-01-2024 BP CONTROLLED (<130/80) BP CONTROLLED (<130/80) [facility] Start: 04-30-2024 COVID-19 VACCINE (#1) COVID-19 VACCINE (#1) [facility] Comment on above: Postponed from 1944 (Declined at t his time) Start: 04-30-2024 SHINGRIX VACCINE (1 of 2) SHINGRIX VACCINE (1 of 2) [facility] Comment on above: Postponed from 1994 (Insurance Cov erage) Start: 04-30-2024 Urine microalbumin profile [facility] Comment on above: Postponed from 1963 (Insurance Cov erage) Start: 04-30-2024 End: 04-30-2024 ambulatory 04/30/2024 9:45 AM EDT OT/PT/Speech Visit [facility] [address] [place], [place] [id number] Rosa Orta PT Venous incompetence [I87.2] [facility] Comment on above: Venous incompetence [I87.2] Start: 04-14-2024 End: 04-14-2024 Patient encounter procedure 04/14/2024 1:40 PM EDT Office Visit [facility] [address] [place], [place] [id number] Julianna Hood APRN.MANUFACTURING MAINTENANCE TECHNICIAN [address] [place], [place] [address] Blood in Urine [facility] Comment on above: Blood in Urine Start: 04-10-2024 End: 04-10-2024 Patient encounter procedure 04/10/2024 11:40 AM EDT Office Visit [facility] [address] [facility] [place] [address] Osvaldo Travis PA-C [address] [place] [address] 6 week f/u Family [facility] Comment on above: 6 week f/u Start: 03-19-2024 End: 03-19-2024 Patient encounter procedure 03/19/2024 12:30 PM EDT Office Visit Vasculary Surgery [address] [place] [address] 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, 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]; Venous incompetence [I87.2] [facility] Comment on above: 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, 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]; Venous incompetence [I87.2] Start: 03-17-2024 End: 03-17-2024 Patient encounter procedure 03/17/2024 2:40 PM EDT Office Visit Cardiology [address] [place] [address] Bilateral leg edema [R60.0]; SOB (shortness of breath) [R06.02]; Weight gain [R63.5] Cardiology Comment on above: Bilateral leg edema [R60.0]; SOB (shortn ess of breath) [R06.02]; Weight gain [R63.5] Start: 03-05-2024 BP CONTROLLED (<130/80) BP CONTROLLED (<130/80) [facility] Start: 03-02-2024 ANNUAL PCP TEAM CHRONIC DISEASE VISIT ANNUAL PCP TEAM CHRONIC DISEASE VISIT [facility] Start: 03-02-2024 BP CONTROLLED (<130/80) BP CONTROLLED (<130/80) [facility] Start: 02-28-2024 End: 05-29-2024 Basic metabolic 2000 panel - Serum or Plasma [facility] Work Phone: Comment on above: Expected: 02/28/2024, Expires: Start: 02-28-2024 End: 05-29-2024 Cortisol [Mass/volume] in Serum or Plasma CORTISOL, SERUM Lab Routine Weight gain Hypersomnolence Cushingoid facies Expected: 02/28/2024, Expires: 05/29/2024 [facility] Comment on above: Expected: 02/28/2024, Expires: Start: 02-28-2024 Hemoglobin A1c measurement HbA1C [facility] Start: 02-28-2024 End: 05-29-2024 Natriuretic peptide.B prohormone N-Terminal [Mass/volume] in Serum or Plasma [facility] Comment on above: Expected: 02/28/2024, Expires: Start: 02-28-2024 End: 02-28-2024 Patient encounter procedure 02/28/2024 11:00 AM EDT Office Visit [facility] [address] [place], [place] [id number] Osvaldo Travis PA-C [address] [place], [place] [id number] 4 week follow up [facility] Comment on above: 4 week follow up Start: 02-17-2024 ANNUAL PCP TEAM CHRONIC DISEASE VISIT ANNUAL PCP TEAM CHRONIC DISEASE VISIT [facility] Start: 02-04-2024 End: 05-05-2024 Comprehensive metabolic 2000 panel - Serum or Plasma [facility] Work Phone: Comment on above: Expected: 02/04/2024, Expires: Start: 02-04-2024 End: 05-05-2024 Natriuretic peptide.B prohormone N-Terminal [Mass/volume] in Serum or Plasma [facility] Comment on above: Expected: 02/04/2024, Expires: Start: 02-04-2024 End: 05-05-2024 Thyrotropin [Units/volume] in Serum or Plasma [facility] Comment on above: Expected: 02/04/2024, Expires: Start: 01-20-2024 ANNUAL PCP TEAM CHRONIC DISEASE VISIT ANNUAL PCP TEAM CHRONIC DISEASE VISIT [facility] Start: 12-05-2023 End: 02-04-2024 Basic metabolic 2000 panel - Serum or Plasma BASIC METABOLIC PNL Lab Routine Type 2 diabetes mellitus with microalbuminuria, with long-term current use of insulin (HCC) Expected: 12/05/2023, Expires: 02/04/2024 [facility] Work Phone: Comment on above: Expected: 12/05/2023, Expires: Start: 12-05-2023 End: 02-04-2024 CBC W Auto Differential panel - Blood CBC + DIFF Lab Routine Type 2 diabetes mellitus with microalbuminuria, with long-term current use of insulin (HCC) Expected: 12/05/2023, Expires: 02/04/2024 [facility] Work Phone: Comment on above: Expected: 12/05/2023, Expires: Start: 12-05-2023 End: 02-04-2024 Hemoglobin A1c in Blood HGB A1C Lab Routine Type 2 diabetes mellitus with microalbuminuria, with long-term current use of insulin (HCC) Expected: 12/05/2023, Expires: 02/04/2024 [facility] Work Phone: Comment on above: Expected: 12/05/2023, Expires: Start: 12-05-2023 End: 02-04-2024 Lipid 1996 panel - Serum or Plasma LIPID PANEL BASIC Lab Routine Mixed hyperlipidemia Expected: 12/05/2023, Expires: 02/04/2024 [facility] Work Phone: Comment on above: Expected: 12/05/2023, Expires: 4 Start: 11-30-2023 ANNUAL PCP TEAM CHRONIC DISEASE VISIT ANNUAL PCP TEAM CHRONIC DISEASE VISIT [facility] Start: 11-28-2023 End: 02-27-2024 ALBUMIN/CREAT RATIO RND UR ALBUMIN/CREAT RATIO RND UR Lab Routine Type 2 diabetes mellitus without complication, with long-term current use of insulin (HCC) Expected: 11/28/2023, Expires: 02/27/2024 [facility] Work Phone: Comment on above: Expected: 11/28/2023, Expires: 4 Start: 11-28-2023 Hepatitis B screening URINE ALBUMIN:CREATININE RATIO [facility] Start: 11-28-2023 Hepatitis B surface antibody level LDL CHOLESTEROL [facility] Start: 11-16-2023 Hemoglobin A1c measurement HbA1C [facility] Start: 11-16-2023 Hemoglobin A1c/Hemoglobin.total in Blood HbA1C [facility] Start: 09-22-2023 [facility] Start: 09-22-2023 [facility] Start: 09-17-2023 Advance Directive Discussion Advance Directive Discussion [facility] Start: 09-17-2023 Depression Assessment Depression Assessment [facility] Start: 06-01-2023 End: 08-01-2023 Hemoglobin A1c in Blood HGB A1C Lab Routine Type 2 diabetes mellitus with microalbuminuria, with long-term current use of insulin (HCC) Expected: 06/01/2023, Expires: 08/01/2023 [facility] Work Phone: Comment on above: Expected: 06/01/2023, Expires: 3 Start: 05-31-2023 3 comp foot exam completed DIABETIC FOOT EXAM [facility] Start: 05-31-2023 ANNUAL PCP TEAM CHRONIC DISEASE VISIT ANNUAL PCP TEAM CHRONIC DISEASE VISIT [facility] Start: 05-30-2023 Hemoglobin A1c/Hemoglobin.total in Blood HBA1C [facility] Start: 05-30-2023 End: 07-30-2023 Lipid 1996 panel - Serum or Plasma LIPID PANEL BASIC Lab Routine Type 2 diabetes mellitus with microalbuminuria, with long-term current use of insulin (HCC) Expected: 05/30/2023, Expires: 07/30/2023 [facility] Work Phone: Comment on above: Expected: 05/30/2023, Expires: 3 Start: 05-18-2023 End: 07-18-2023 Comprehensive metabolic 2000 panel - Serum or Plasma [facility] Work Phone: Comment on above: Expected: 05/18/2023, Expires: 3 Start: 05-18-2023 End: 07-18-2023 Creatine kinase [Enzymatic activity/volume] in Serum or Plasma [facility] Work Phone: Comment on above: Expected: 05/18/2023, Expires: 3 Start: 05-18-2023 Influenza vaccination [facility] Start: 05-18-2023 End: 07-18-2023 Urinalysis complete panel - Urine [facility] Work Phone: Comment on above: Expected: 05/18/2023, Expires: 3 Start: 05-18-2023 End: 07-18-2023 URINALYSIS, DIPSTICK ONLY [facility] Work Phone: Comment on above: Expected: 05/18/2023, Expires: 3 Start: 03-03-2023 Adult depression screening assessment DEPRESSION SCREENING [facility] Start: 03-03-2023 ANNUAL PCP TEAM CHRONIC DISEASE VISIT ANNUAL PCP TEAM CHRONIC DISEASE VISIT [facility] Start: 03-03-2023 BP CONTROLLED (<130/80) BP CONTROLLED (<130/80) [facility] Start: 03-02-2023 End: 05-02-2023 Comprehensive metabolic 2000 panel - Serum or Plasma [facility] Work Phone: Comment on above: Expected: 03/02/2023, Expires: 3 Start: 03-02-2023 End: 05-02-2023 Lipase [Enzymatic activity/volume] in Serum or Plasma [facility] Work Phone: Comment on above: Expected: 03/02/2023, Expires: 3 Start: 01-27-2023 BP CONTROLLED (<130/80) BP CONTROLLED (<130/80) [facility] Start: 11-29-2022 End: 01-29-2023 CBC W Ordered Manual Differential panel - Blood PATHOLOGIST INTERPRETATION WITH CBC AND DIFF Lab Routine Leukocytosis, unspecified type Expected: 11/29/2022, Expires: 01/29/2023 [facility] Work Phone: Comment on above: Expected: 11/29/2022, Expires: 3 Start: 11-27-2022 End: 01-27-2023 ALBUMIN/CREAT RATIO RND UR [facility] Work Phone: Comment on above: Expected: 11/27/2022, Expires: 3 Start: 11-27-2022 End: 01-27-2023 CBC W Auto Differential panel - Blood [facility] Work Phone: Comment on above: Expected: 11/27/2022, Expires: 3 Start: 11-27-2022 End: 01-27-2023 Comprehensive metabolic 2000 panel - Serum or Plasma [facility] Work Phone: Comment on above: Expected: 11/27/2022, Expires: 3 Start: 11-27-2022 End: 01-27-2023 Hemoglobin A1c in Blood [facility] Work Phone: Comment on above: Expected: 11/27/2022, Expires: 3 Start: 11-21-2022 Patient discharge [facility] Start: 11-21-2022 ANNUAL PCP TEAM CHRONIC DISEASE VISIT ANNUAL PCP TEAM CHRONIC DISEASE VISIT [facility] Start: 11-21-2022 BP CONTROLLED (<130/80) BP CONTROLLED (<130/80) [facility] Start: 11-21-2022 Following clinical pathway protocol [facility] Start: 11-21-2022 Assessment of risk of venous thromboembolism [facility] Start: 11-21-2022 Care regimes management [facility] Start: 11-21-2022 Fall prevention [facility] Start: 11-21-2022 Incentive spirometry [facility] Start: 11-21-2022 Inhalation therapy procedure [facility] Start: 11-21-2022 Insertion of catheter into peripheral vein [facility] Start: 11-21-2022 Introduction of urinary catheter [facility] Start: 11-21-2022 Measuring intake and output [facility] Start: 11-21-2022 Oxygen therapy [facility] Start: 11-21-2022 Providing care according to standard [facility] Start: 11-21-2022 Provision of activity privileges [facility] Start: 11-21-2022 Referral to service [facility] Start: 11-21-2022 [facility] Start: 11-21-2022 Admission procedure [facility] Start: 11-21-2022 [facility] Start: 10-18-2022 Glaucoma screening Dilated Retinal Exam [facility] Start: 10-18-2022 Hepatitis C antibody, confirmatory test DILATED RETINAL EXAM [facility] Start: 09-17-2022 ADVANCE DIRECTIVE DISCUSSION ADVANCE DIRECTIVE DISCUSSION [facility] Start: 09-17-2022 DEPRESSION ASSESSMENT DEPRESSION ASSESSMENT [facility] Start: 08-30-2022 End: 10-30-2022 Basic metabolic 2000 panel - Serum or Plasma BASIC METABOLIC PNL Lab Routine Type 2 diabetes mellitus without complication, with long-term current use of insulin (HCC) Expected: 08/30/2022, Expires: 10/30/2022 [facility] Work Phone: Comment on above: Expected: 08/30/2022, Expires: 3 Start: 08-30-2022 End: 10-30-2022 CBC W Ordered Manual Differential panel - Blood PATHOLOGIST INTERPRETATION WITH CBC AND DIFF Lab Routine Monocytosis Expected: 08/30/2022, Expires: 10/30/2022 [facility] Work Phone: Comment on above: Expected: 08/30/2022, Expires: 3 Start: 08-30-2022 End: 10-30-2022 Hemoglobin A1c in Blood HGB A1C Lab Routine Type 2 diabetes mellitus with microalbuminuria, with long-term current use of insulin (HCC) Expected: 08/30/2022, Expires: 10/30/2022 [facility] Work Phone: Comment on above: Expected: 08/30/2022, Expires: 3 Start: 08-29-2022 Hemoglobin A1c/Hemoglobin.total in Blood HBA1C [facility] Start: 08-25-2022 Hemoglobin A1c/Hemoglobin.total in Blood HBA1C [facility] Start: 08-16-2022 Hepatitis B screening URINE ALBUMIN:CREATININE RATIO [facility] Start: 08-16-2022 Hepatitis B surface antibody level LDL CHOLESTEROL [facility] Start: 06-03-2022 End: 08-03-2022 Basic metabolic 2000 panel - Serum or Plasma BASIC METABOLIC PNL Lab Routine Type 2 diabetes mellitus with microalbuminuria, with long-term current use of insulin (HCC) Expected: 06/03/2022, Expires: 08/03/2022 [facility] Work Phone: Comment on above: Expected: 06/03/2022, Expires: 2 Start: 06-03-2022 End: 08-03-2022 CBC W Auto Differential panel - Blood CBC + DIFF Lab Routine Type 2 diabetes mellitus with microalbuminuria, with long-term current use of insulin (HCC) Expected: 06/03/2022, Expires: 08/03/2022 [facility] Work Phone: Comment on above: Expected: 06/03/2022, Expires: 2 Start: 06-03-2022 End: 08-03-2022 Hemoglobin A1c in Blood HGB A1C Lab Routine Type 2 diabetes mellitus with microalbuminuria, with long-term current use of insulin (HCC) Expected: 06/03/2022, Expires: 08/03/2022 [facility] Work Phone: Comment on above: Expected: 06/03/2022, Expires: 2 Start: 06-03-2022 End: 08-03-2022 Hepatitis C virus Ab [Presence] in Serum HEP C AB IA W/CONF SCRN Lab Routine Need for hepatitis C screening test Expected: 06/03/2022, Expires: 08/03/2022 [facility] Work Phone: Comment on above: Expected: 06/03/2022, Expires: 2 Start: 05-18-2022 Influenza vaccination INFLUENZA (#1) [facility] Start: 05-06-2022 3 comp foot exam completed DIABETIC FOOT EXAM [facility] Start: 04-08-2022 [facility] Work Phone: Start: 02-11-2022 End: 04-13-2022 Hemoglobin A1c/Hemoglobin.total in Blood [facility] Comment on above: Expected: 02/11/2022, Expires: 2 Start: 01-12-2022 End: 03-14-2022 Basic metabolic 2000 panel - Serum or Plasma BASIC METABOLIC PNL Lab Routine Type 2 diabetes mellitus without complication, with long-term current use of insulin (HCC) Expected: 01/12/2022, Expires: 03/14/2022 [facility] Work Phone: Comment on above: Expected: 01/12/2022, Expires: 2 Start: 09-17-2021 ADVANCE DIRECTIVE DISCUSSION ADVANCE DIRECTIVE DISCUSSION [facility] Start: 09-17-2021 DEPRESSION ASSESSMENT DEPRESSION ASSESSMENT [facility] Start: 07-16-2019 Adult depression screening assessment DEPRESSION SCREENING [facility] Start: 2019 RSV Vaccine (1 - 1-dose 75+ series) RSV Vaccine (1 - 1-dose 75+ series) [facility] Start: 2004 Hepatitis B Vaccine (1 of 3 - Risk 3-dose series) Hepatitis B Vaccine (1 of 3 - Risk 3-dose series) [facility] Start: 2004 RSV Vaccine (1 - 1-dose 60+ series) RSV Vaccine (1 - 1-dose 60+ series) [facility] Start: 1994 SHINGRIX VACCINE (1 of 2) SHINGRIX VACCINE (1 of 2) [facility] Start: 1963 Urine microalbumin profile [facility] Start: 1962 BP CONTROLLED (<130/80) BP CONTROLLED (<130/80) [facility] Start: 1962 HEPATITIS C SCREENING HEPATITIS C SCREENING [facility] Start: 1950 PNEUMOCOCCAL: 65+ (1 - PCV) PNEUMOCOCCAL: 65+ (1 - PCV) [facility] Start: 1949 COVID-19 VACCINE (#1) COVID-19 VACCINE (#1) [facility] Start: 1949 COVID-19 VACCINE (1) COVID-19 VACCINE (1) [facility] Start: 1944 COVID-19 VACCINE (#1) COVID-19 VACCINE (#1) [facility] Ambulatory ECG [facility] CBC W Auto Different ial panel - Blood CBC + DIFF Lab Routine Near syncope 05/18/2023 4:29 PM EDT [facility] Work Phone: COVID & INFLUENZA A/ B & RSV NAAT, ROUTINE COVID & INFLUENZA A/B & RSV NAAT, ROUTINE Microbiology Routine Suspected COVID-19 virus infection 06/09/2023 11:25 AM EDT [facility] Work Phone: End: 05-18-2024 ECG COMPLETE ECG COMPLETE ECG Routine Near syncope Fall, initial encounter 1 Occurrences starting 05/18/2023 until 05/18/2024 [facility] Work Phone: Comment on above: 1 Occurrences starting 05/18/2023 until 05/18/2024 ECG COMPLETE ECG COMPLETE ECG Routine SOB (shortness of breath) Bilateral leg edema Weight increase 02/04/2024 11:01 AM EDT [facility] End: 02-27-2025 Echocardiography ECHO Cardiology Routine Bilateral leg edema SOB (shortness of breath) Weight gain 1 Occurrences starting 02/28/2024 until 02/27/2025 [facility] Comment on above: 1 Occurrences starting 02/28/2024 until 02/27/2025 Ferritin [Mass/volum e] in Serum or Plasma [facility] Lipid 1996 panel - S leatha or Plasma LIPID PANEL BASIC Lab Routine Type 2 diabetes mellitus with microalbuminuria, with long-term current use of insulin (HCC) 11/27/2022 9:20 AM EDT [facility] Work Phone: Measurement of respiratory function [facility] Measurement of respiratory function [facility] Patient Education [facility] Work Phone: Patient referral [facility] Work Phone: ROUTINE FLU A/B + RSV ROUTINE FL U A/B + RSV Lab Routine Suspected COVID-19 virus infection 06/09/2023 11:25 AM EDT [facility] Work Phone: SARS-CoV-2 (COVID-19 ) RNA [Presence] in Respiratory specimen by DARRIAN with probe detection COVID NAAT, ROUTINE Microbiology Routine Acute upper respiratory infection 05/18/2023 4:19 PM EDT [facility] Work Phone: SARS-CoV-2 (COVID-19 ) RNA [Presence] in Respiratory specimen by DARRIAN with probe detection COVID NAAT, UPPER RESPIRATORY, ROUTINE Microbiology Routine Suspected COVID-19 virus infection 06/09/2023 11:25 AM EDT [facility] Work Phone: End: 02-27-2025 US Vein - bilateral US VENOUS INCOMPETENCY [facility] Vascular Lab Routine Varicose veins of both lower extremities with inflammation 1 Occurrences starting 02/28/2024 until 02/27/2025 [facility] Comment on above: 1 Occurrences starting 02/28/2024 until 02/27/2025 Walking distance 6 minutes [facility] End: 03-05-2025 XR Chest PA and Lateral XR CHEST 2V FRONTAL/LAT Radiology Routine SOB (shortness of breath) Bilateral leg edema Weight increase 1 Occurrences starting 02/04/2024 until 03/05/2025 [facility] Comment on above: 1 Occurrences starting 02/04/2024 until 03/05/2025 XR Chest PA and Lateral XR CHEST 2V FRONTAL/LAT Radiology Routine SOB (shortness of breath) Bilateral leg edema Weight increase 02/04/2024 12:26 PM EDT [facility] XR Foot - left AP an d Lateral and oblique XR FOOT GENERAL 3V AP/LAT/OBL LEFT Radiology Routine Closed fracture of foot, unspecified laterality, initial encounter 01/22/2025 4:13 PM EDT [facility] Work Phone: End: 02-21-2026 XR Foot - left AP and Lateral and oblique XR FOOT GENERAL 3V AP/LAT/OBL LEFT Radiology Routine Closed fracture of foot, unspecified laterality, initial encounter 1 Occurrences starting 01/22/2025 until 02/21/2026 [facility] Work Phone: Comment on above: 1 Occurrences starting 01/22/2025 until 02/21/2026 End: 08-21-2024 XR HIP GENERAL 3V PELV/AP/LAT RIGHT XR HIP GENERAL 3V PELV/AP/LAT RIGHT Radiology Routine Acute hip pain, right 1 Occurrences starting 07/23/2023 until 08/21/2024 [facility] Work Phone: Comment on above: 1 Occurrences starting 07/23/2023 until 08/21/2024 XR HIP GENERAL 3V PELV/AP/LAT RIGHT XR HIP GENERAL 3V PELV/AP/LAT RIGHT Radiology Routine Acute hip pain, right 07/23/2023 3:10 PM EST [facility] Work Phone: [facility] Immunizations Immunization Date Immunization Notes Care Provider Rashida light 06-20-2024 influenza, high dose seasonal, preservative-free Zoila Wright [employer]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: [facility] 06-20-2024 influenza virus vacc ine, unspecified formulation Mathieu Virgen MD Work Phone: [facility] 06-06-2023 influenza (HD-IIV4) vaccine, age 65+ yr, high dose, quadrivalent, PF (FLUZONE HIGH-DOSE) Mathieu Virgen MD Work Phone: [facility] 06-06-2023 influenza virus vacc ine, unspecified formulation FERNY Travis PA-C Work Phone: [facility] 05-31-2022 influenza, high-dose , quadrivalent vaccine (FLUZONE HIGH DOSE QUADRIVALENT) Mathieu Virgen MD Work Phone: [facility] 05-31-2022 influenza virus vacc ine, unspecified formulation Mathieu Virgen MD Work Phone: [facility] 06-17-2021 influenza, injectabl e, quadrivalent, preservative free [facility] 06-17-2021 influenza, seasonal, injectable Mathieu Virgen MD Work Phone: [facility] 06-17-2021 influenza, seasonal, injectable, preservative free Mathieu Virgen MD Work Phone: [facility] 07-26-2020 influenza, high-dose , quadrivalent vaccine (FLUZONE HIGH DOSE QUADRIVALENT) Mathieu Virgen MD Work Phone: [facility] 08-21-2019 influenza, injectabl e, quadrivalent, preservative free [facility] 08-21-2019 influenza, seasonal, injectable Mathieu Virgen MD Work Phone: [facility] 08-21-2019 influenza, seasonal, injectable, preservative free Mathieu Virgen MD Work Phone: [facility] Work Phone: 07-04-2019 influenza, high dose seasonal, preservative-free Mathieu Virgen MD Work Phone: [facility] 07-16-2018 influenza, high dose seasonal, preservative-free Mathieu Virgen MD Work Phone: [facility] 08-27-2017 influenza, high dose seasonal, preservative-free Mathieu Virgen MD Work Phone: [facility] 08-17-2016 pneumococcal polysaccharide vaccine, 23 valent Mathieu Virgen MD Work Phone: [facility] 06-14-2016 influenza, high dose seasonal, preservative-free Mathieu Virgen MD Work Phone: [facility] Work Phone: 07-14-2015 influenza, high dose seasonal, preservative-free Mathieu Virgen MD Work Phone: [facility] Work Phone: 06-16-2015 pneumococcal conjuga te vaccine, 13 valent Mathieu Virgen MD Work Phone: [facility] Work Phone: 06-25-2014 influenza, seasonal, injectable Mathieu Virgen MD Work Phone: [facility] 07-12-2013 influenza virus vacc ine, unspecified formulation Mathieu Virgen MD Work Phone: [facility] 06-15-2012 influenza virus vacc ine, unspecified formulation Mathieu Virgen MD Work Phone: [facility] Work Phone: 06-07-2011 influenza virus vacc ine, unspecified formulation Mathieu Virgen MD Work Phone: [facility] Work Phone: 07-02-2010 influenza virus vacc ine, unspecified formulation Mathieu Virgen MD Work Phone: [facility] Work Phone: 07-14-2009 pneumococcal polysaccharide vaccine, 23 valent Mathieu Virgen MD Work Phone: [facility] 06-09-2009 influenza virus vacc ine, unspecified formulation Mathieu Virgen MD Work Phone: [facility] 07-22-2008 influenza virus vacc ine, unspecified formulation Mathieu Virgen MD Work Phone: [facility] 07-27-2007 influenza virus vacc ine, unspecified formulation Mathieu Virgen MD Work Phone: [facility] Work Phone: 07-23-2006 influenza virus vacc ine, unspecified formulation Mathieu Virgen MD Work Phone: [facility] Work Phone: 07-13-2005 influenza virus vacc ine, unspecified formulation Mathieu Virgen MD Work Phone: [facility] Work Phone: Payers Date Payer Category Payer Self-pay [id number] 2014 Medicare (Managed Care) PRIMETIM E [id number] 2014 Unknown PRIMETIME PRIMET FRANCA HMO POS [id number] 2014-Present [phone] [address] [place] [id number] O [id number] 2014 Unknown [id number] [id number]. 2.7.3.999424.315 2014 Unknown [id number] Unknown [id number] 2.16.840.1.332115.3.579. 2.462 Unknown [id number] 2.16.840.1.803479.3.579. 2.462 Unknown [id number] 2.16.840.1.158211.3.579. 2.462 Unknown [id number] 2.16.840.1.876948.3.579. 2.462 Unknown [id number] 2.16.840.1.380363.3.579. 2.462 Unknown [id number] 2..840.1.898195.3.579. 2.462 Unknown [id number] 2.16840.1.249472.3.579. 2.462 Unknown [id number] 2.16.840.1.566756.3.579. 2.462 Unknown [id number] 2.16.840.1.301041.3.579. 2.462 Unknown [id number] 2.16840.1.633669.3.579. 2.462 Unknown [id number] 2.840.1.085056.3.579. 2.462 Unknown [id number] 2.16.840.1.611721.3.579. 2.462 Unknown [id number] 2.16.840.1.070883.3.579. 2.462 Unknown [id number] 2.16.840.1.721258.3.579. 2.462 Unknown [id number] 2.16.840.1.057591.3.579. 2.462 Unknown [id number] 2.16.840.1.619849.3.579. 2.462 Unknown [id number] 2.16.840.1.260541.3.579. 2.462 Unknown [id number] 2.16.840.1.090492.3.579. 2.462 Unknown [id number] 2.16.840.1.716311.3.579. 2.462 Unknown [id number] 2.16.840.1.673474.3.579. 2.462 Unknown [id number] 2.16.840.1.019722.3.579. 2.462 Unknown [id number] 2.16.840.1.738862.3.579. 2.462 Unknown [id number] 2.16.840.1.933168.3.579. 2.462 Unknown [id number] 2..840.1.721343.3.579. 2.462 Unknown [id number] 2..840.1.462839.3.579. 2.462 Unknown [id number] 2.16.840.1.787565.3.579. 2.462 Unknown [id number] 2.16.840.1.992018.3.579. 2.462 Unknown [id number] 2.16.840.1.670893.3.579. 2.462 Unknown [id number] 2.16.840.1.394838.3.579. 2.462 Unknown [id number] 2.16.840.1.260346.3.579. 2.462 Unknown [id number] 2.16.840.1.023101.3.579. 2.462 Unknown [id number] 2.16.840.1.651802.3.579. 2.462 Unknown [id number] 2.16.840.1.351802.3.579. 2.462 Unknown [id number] 2.16.840.1.769373.3.579. 2.462 Unknown [id number] 2.16.840.1.106664.3.579. 2.462 Unknown [id number] 2.16.840.1.239344.3.579. 2.462 Unknown [id number] 2.16.840.1.132739.3.579. 2.462 Unknown [id number] 2.16.840.1.078327.3.579. 2.462 Unknown [id number] 2.16.840.1.173931.3.579. 2.462 Unknown [id number] 2.16.840.1.764046.3.579. 2.462 Unknown [id number] 2.16.840.1.678540.3.579. 2.462 Unknown [id number] 2.16.840.1.409709.3.579. 2.462 Unknown [id number] 2.16.840.1.516592.3.579. 2.462 Unknown [id number] 2.16.840.1.186472.3.579. 2.462 Unknown [id number] 2.16.840.1.933789.3.579. 2.462 Unknown [id number] 2.16.840.1.092256.3.579. 2.462 Unknown [id number] 2.16.840.1.413393.3.579. 2.462 Social History Date Type Detail Facility Start: 08-17-2016 End: 05-31-2025 Tobacco smoking status NHIS Ex-smoker [facility] Start: 09-17-1970 End: 09-17-1980 History of tobacco use Current smoker [facility] Start: 09-17-1970 End: 09-17-1980 History of tobacco use Cigarette Smoker [facility] Start: 11-21-2021 End: 01-22-2025 Alcohol intake Current non-drinker of alcohol (finding) [facility] Start: 1945 Sex Assigned At Not on file [facility] Start: 12-25-2020 End: 05-31-2022 Exposure to SARS-CoV-2 (event) Not sure [facility] Start: 01-30-2022 End: 09-22-2023 Tobacco smoking status NHIS Unknown if ever smoked [facility] Start: 10-26-2021 Cigarettes [facility] Start: 1945 Sex Assigned At Male [facility] Start: 03-29-2022 End: 04-08-2022 Exposure to SARS-CoV-2 (event) Unable to assess [facility] Work Phone: Start: 08-17-2016 End: 01-18-2023 Cigarettes smoked current (pack per day) - Reported 2 [facility] Start: 08-17-2016 End: 06-20-2024 Tobacco use and exposure Smokeless tobacco non-user [facility] Start: 01-19-2023 History SDOH Alcohol Frequency 1 [facility] Start: 01-19-2023 History SDOH Alcohol Std Drinks 0 [facility] Start: 01-19-2023 History SDOH Social Connections Phone 5 [facility] Start: 01-19-2023 History SDOH Social Connections Get Together 3 [facility] Start: 01-19-2023 History SDOH Social Connections Membership 2 [facility] Start: 01-19-2023 History SDOH Social Connections Living 4 [facility] Start: 01-18-2023 End: 06-19-2024 Social connection and isolation panel [facility] Do you belong to any clubs or organizations such as taoism groups, unions, fraternal or athletic groups, or school groups? No [facility] Are you now , , , , never or living with a partner? [facility] How often to you hav e a drink containing alcohol? Never [facility] Start: 08-18-[address] inks containing alcohol do you have on a typical day? Patient does not drink [facility] How hard is it for y ou to pay for the very basics like food, housing, medical care, and heating Not very hard [facility] Do you feel stress - tense, restless, nervous, or anxious, or unable to sleep at night because your mind is troubled all the time - these days [OSQ] Not at all [facility] (I/We) worried whenoel er (my/our) food would run out before (I/we) got money to buy more. Never true [facility] Start: 01-18-2023 Gender identity Identifies as male gender (finding) [facility] Start: 12-08-2024 End: 12-09-2024 Sex Male (finding) [facility] Medical Equipment Procedure Code Equipment Code [...] cholecystectomy with exploration of common bile duct CLIP,Stat DoctorsMASOOD WEIR FDA Start: 11-19-2019 Total cholecystectomy with exploration of common bile duct CLIP,PRABHA WEIR FDA Start: 11-19-2019 Total cholecystectomy with exploration of common bile duct CLIP,PRABHA WEIR FDA Start: 11-19-2019 Total cholecystectomy with exploration of common bile duct CLIP,PRABHA WEIR FDA Start: 11-19-2019 Total cholecystectomy with exploration of common bile duct CLIP,Stat DoctorsMASOOD [employer]LLA FDA Start: 11-19-2019 Total cholecystectomy with exploration of common bile duct CLIP,Stat DoctorsANTHONYTripConnectLILIA FDA Start: 11-19-2019 1 Each twice daily. Accucheck compact test strips, dx-NIDDM [id number] Start: 08-20-2013 Comment on above: 1 Each twice daily. Accucheck compact test strips, dx-NIDDM [id number], [id number], [id number] Start: 08-20-2013 End: 06-20-2024 Comment on above: 1 Each once daily. D X: E11.9 Insulin: Yes Test blood sugar(s) 1 times daily. Dx: 250.00. Insulin: Yes Goals Date Patient Goal Desired Activity /State Functional Status Date Assessment Result Facility 06-01-2025 Functional status Ambulates [facility] Work Phone: 05-31-2025 Functional status Tolerates Activity Fair [facility] Work Phone: 05-31-2025 Functional status None [facility] Work Phone: 04-30-2025 Functional status Ambulates [facility] Work Phone: 04-29-2025 Functional status None [facility] Work Phone: 11-21-2022 Functional status Activity Abili ty Independent [facility] Work Phone: 03-31-2015 Are you deaf, or do you have serious difficulty hearing No 03/31/2015 12:49 PM Gregoria Martinez RN No [facility] 03-31-2015 Are you blind, or do you have serious difficulty seeing, even when wearing glasses No 03/31/2015 12:49 PM EDT Gregoria Moeller RN No [facility] 03-31-2015 Do you have serious difficulty walking or climbing stairs No 03/31/2015 12:49 PM EDT Gregoria Moeller RN No [facility] 03-31-2015 Do you have difficul ty dressing or bathing No 03/31/2015 12:49 PM EDT Gregoria Moeller RN No [facility] 03-31-2015 Because of a physica l, mental, or emotional condition, do you have difficulty doing errands alone such as visiting a physician's office or shopping No 03/31/2015 12:49 PM EDT Gregoria Moeller RN No [facility] Mental Status Date Assessment Result Facility 06-01-2025 Cognitive function Voice/Name [facility] Work Phone: 05-31-2025 Cognitive function Voice/Name;Deep Pain [facility] Work Phone: 04-30-2025 Cognitive function Voice/Name [facility] Work Phone: 04-29-2025 Cognitive function Level Of Cons ciousness Awake;Alert;Appropriate;Fol lows Commands [facility] Work Phone: 01-19-2025 Cognitive function Voice/Name [facility] Work Phone: 09-20-2024 Cognitive function Awake;Alert;A ppropriate;Fol lows Commands [facility] Work Phone: 09-01-2024 Cognitive function Level Of Cons ciousness Awake;Alert;Appropriate;Fol lows Commands [facility] Work Phone: 09-22-2023 Cognitive function Level Of Cons ciousness Awake;Alert;Appropriate;Fol lows Commands [facility] Work Phone: 03-31-2023 Cognitive function Level Of Cons ciousness Awake;Alert;Appropriate;Fol lows Commands [facility] Work Phone: 02-24-2023 Cognitive function Level Of Cons ciousness Drowsy [facility] Work Phone: 11-21-2022 Cognitive function Voice/Name Andrew C [facility] Work Phone: 11-21-2022 Cognitive function Awake;Alert;Appropriat e [facility] Work Phone: 08-08-2022 Cognitive function Level Of Cons ciousness Awake;Alert;Appropriate;Fol lows Commands;Responds to vocal stimuli [facility] Work Phone: 04-08-2022 Cognitive function Level Of Cons ciousness Awake;Alert;Appropriate;Fol lows Commands [facility] Work Phone: 03-31-2015 Because of a physica l, mental, or emotional condition, do you have serious difficulty concentrating, remembering, or making decisions No 03/31/2015 12:49 PM EDT Gregoria Moeller RN No [facility] Clinical Notes 01-24-2021 to 07-24-2025 Aly Marcial MA - 06/02/2025 6:15 PM EDT Note Date & Type Note Facility 07-24-2025 Note HNO ID: [id number] Author: ANOOP PHILIP MD Service: ? 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 [facility] 07-24-2025 Note HNO ID: [id number] Author: ANOOP PHILIP MD Service: ? Author [...] Cystoscope type: Disposable flexible Anoop Philip MD [facility] 06-25-2025 Note HNO ID: [id number] Author: ANOOP PHILIP MD Service: ? Author Type: Physician Type: Progress Notes Filed: 06/25/2025 12:17 Note Text: NEW PATIENT ENCOUNTER HISTORY OF PRESENT ILLNESS: Faisal Alarcon is a 80 year old with 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 Patient's daughter acted as primary historian. [...] Types: Cigarettes S (more content not included)... [facility] 06-12-2025 Note HNO ID: [id number] Author: MATHIEU VIRGEN MD Service: ? Author Type: Physician Type: Progress Notes Filed: 06/12/2025 12:39 Note Text: The patient is an 80-year-old male with aortic stenosis, atrial fibrillation, and diabetes mellitus, presenting for post-discharge follow-up after hospitalization for chest pain. HPI Chest Pain: - Hospitalized at [facility] 05/31-06/01 for chest pain. - Cardiology consult performed; serial cardiac enzymes, monitoring, and echocardiogram conducted. - D-dimer: 0.31. - Echocardiogram (05/31) showed mild concentric LVH, LVEF 65%, stage 1 diastolic dysfunction, mild left atrial enlargement, and mild 1+ mitral valve insufficiency. - Cardiology determined no further cardiac workup was needed. - Pepcid discontinued; Protonix prescribed. 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 - [...] carotid arteries. - Currently on diltiazem (Cartia); cartography professor considering discontinuation pending Holter monitor results. Diabetes [...] times a day before meals. Blood-Glucose Sensor ([employer] G7 SENSOR) sayra Apply new sensor every [...] ALLERGIES Allergen Reactions (more content not included)... [facility] 06-11-2025 Progress note [facility] 06-02-2025 Note HNO ID: [id number] Author: ALY MARCIAL MA Service: ? Author Type: Pocket Assembler Type: Progress Notes Filed: 06/02/2025 18:28 Note Text: TRANSITION CARE MANAGEMENT (TCM) INITIAL CONTACT Pocket Assembler Outreach Provider Action/FYI: Chest pain went to [facility] 05/31 and admitted. Had 48 Holter monitor placed 06/02 by [facility]. Aware will let office know so we can fax to get results. Daughter would like to transfer care to [facility] pulmonary due to not happy with [facility] service. Initial contact with patient post discharge, spoke to daughter. Patient identified by name and . TRANSITION CARE MANAGEMENT INITIAL OUTREACH DOCUMENTATION: 06/02/2025 Date of Outreach: Outreach Attempt 1: Contact Made Date of Discharge 06/01/2025 SUMMARY: -Pt discharged from [facility] on 06/01. -Admitted for: chest pain Do [...] recent hospitalization: Placed for provider to review [facility] 06-02-2025 History of Present illness Narrative TRANSITION CARE MANAGEMENT (TCM) INITIAL CONTACT Pocket Assembler Outreach Provider Action/FYI: Chest pain went to [facility] 05/31 and admitted. Had 48 Holter monitor placed 06/02 by [facility]. Aware will let office know so we can fax to get results. Daughter would like to transfer care to [facility] pulmonary due to not happy with [facility] service. Initial contact with patient post discharge, spoke to daughter. Patient identified by name and . TRANSITION CARE MANAGEMENT INITIAL OUTREACH DOCUMENTATION: 06/02/2025 Date of Outreach: Outreach Attempt 1: Contact Made Date of Discharge 06/01/2025 SUMMARY: -Pt discharged from [facility] on 06/01. -Admitted for: chest pain Do [...] provider to review documented in this encounter [facility] 06-02-2025 Note Patient Outreach (RASHIDA MPCHANI) FAISAL ALARCON ([id number]) 1945 Date Time Provider Department 06/02/25 MATHIEU VIRGEN During your visit today, we recorded the following information about you: Aly Marcial MA 06/02/2025 6:28 PM Signed TRANSITION CARE MANAGEMENT (TCM) INITIAL CONTACT Pocket Assembler Outreach Provider Action/I: Chest pain went to [facility] 05/31 and admitted. Had 48 Holter monitor placed 06/02 by [facility]. Aware will let office know so we can fax to get results. Daughter would like to transfer care to [facility] pulmonary due to not happy with [facility] service. Initial contact with patient post discharge, spoke to daughter. Patient identified by name and . TRANSITION CARE MANAGEMENT INITIAL OUTREACH DOCUMENTATION: 06/02/2025 Date of Outreach: Outreach Attempt 1: Contact Made Date of Discharge 06/01/2025 SUMMARY: -Pt discharged from [facility] on 06/01. -Admitted for: chest pain Do [...] Transition Of Care [4074] Cmt: Chest pain [facility] hospital 05/31-06/01 Prescriptions as of 06/02/2025 [...] FAMOTIDINE 20 MG (more content not included)... [facility] 06-01-2025 Discharge summary Note Date/Time June 01, 2025 3:23pm [facility] Medical Records Department [address] [place] [address] Discharge Summary 06/01/25 1520 MR#: [id number] Acct: [id number] Name: FAISAL ALARCON Rep #:[id number] : 1945 80 From: Narda Kebede MD PCP: Dr. Mathieu Virgen MD Status:ADM I NO Location: [place] [address] Providers Date of Admission: 05/31/25 Date of [...] Self Care Charges/Coding Visit Charges Inpatient E&M: 77555 Disch Hosp >30min 06/01/25 1523 <Electronically signed by Narda Kebede MD> Cosigner Signature (if applicable): CC: Dr. Narda Kebede MD; Dr. Mathieu Virgen MD~ Signed [facility] Work Phone: 1(600) 775-656909-15-2025 Discharge summary [facility] Medical Records Department [address] [place] [address] Discharge Summary 06/01/25 1520 MR#: [id number] Acct: [id number] Name: FAISAL ALARCON Rep #:[id number] : 1945 80 From: Narda Kebede MD PCP: Dr. Mathieu Virgen MD Status:ADM I NO Location: [place] [address] Providers Date of Admission: 05/31/25 Date of [...] unit) capsule (Vitamin D3) 2,000 unitPO DAILY hwitlaomvj92/05/24 solifenacin 10 mg tablet 10 mg PO [...] Count 264, MPV10.1, Sodium 136, Potassium 4.2, Spszzdqx871, Carbon Dioxide 22.2, Anion Gap 12, BUN [...] Self Care Charges/Coding Visit Charges Inpatient E&M: 35159 Disch Hosp >30min 06/01/25 1521 Cosigner Signature (if applicable): CC: Dr. Narda Kebede MD; Dr. Mathieu Virgen MD~ Signed [facility]09-15-2025 [facility]09-15-2025 Hospital Discharge instructionsAdditional Instructions Date of Discharge: 06/01/25[facility] Work Phone: 1(314) 253-577709-15-2025 Consult note Author Gabriel Lin [facility] Note Date/Time June 01, 2025 10:23am [facility] Medical Records Department [address] [place] [address] Consultation - Cardiology 06/01/25 1012 MR#: [id number] Acct: [id number] Name: FAISAL ALARCON Rep #:[id number] : 1945 80 From: Gabriel Lin MD PCP: Dr. Mathieu Virgen MD Status:ADM I NO Location: [place] [id number]- [id number] Assessment & Plan Assessment/Plan (1) Chest [...] patient continue to follow-up with his primary cartography professor per previously arranged appointments. PLAN: Plan 1. I do not feel that further cardiovascular evaluation is indicated at this point in time. 2. The patient should be continued on his same cardiovascular medications as hewas on in the outpatient setting. 3. Patient should follow-up with his primary cartography professor per his previous arranged appointments after discharge. [...] bundle branch block which was not new. [facility] Medical History History of CAD (coronary [...] grossly normal Charges/Coding Visit Charges Inpatient E&M: 87696 Init Hosp L2 Objective Data Vital Signs: [...] (Auto) 70.0, Lymph % (Auto) 17.4 L, [place] % (Auto) 9.6, Eos % (Auto) 2.0, [...] % (Auto) 70.0,Lymph % (Auto) 17.4 L, [place] % (Auto) 9.6, Eos % (Auto) 2.0, [...] congestion and interstitial lung disease. Reading Location: [facility] Echocardiogram 05/31/25 15:00 Interpretation Summary Mild concentric [...] applicable): CC: Dr. Mathieu Virgen MD~ Signed [facility] Work Phone: 1(564) 539-541109-15-2025 Progress note Author Narda Palmakaterin [facility] Note Date/Time June 01, 2025 8:56am [facility] Medical Records Department [address] [place] [address] Progress Note - Hospitalist 06/01/25 0847 MR#: [id number] Acct: [id number] Name: FAISAL ALARCON Rep #:[id number] : 1945 80 From: Narda Kebede MD PCP: Dr. Mathieu Virgen MD Status:ADM I NO Location: [place] [address] Reason for Visit Chief Complaint: Chest pain [...] (Auto) 70.0, Lymph % (Auto) 17.4 L, [place] % (Auto) 9.6, Eos % (Auto) 2.0, [...] congestion and interstitial lung disease. Reading Location: [facility] Physical Exam Narrative GENERAL: cooperative HEENT: Atraumatic; [...] documentation,40 Minutes Charges/Coding Visit Charges Inpatient E&M: 01191 Subs Hosp L2 06/01/25 0856 <Electronically signed by Narda Kebede MD> Cosigner Signature (if applicable): CC: ~ Signed [facility] Work Phone: 1(841) 947-874309-15-2025 Consult note [facility] Medical Records Department [address] [place] [address] Consultation - Cardiology 06/01/25 1012 MR#: [id number] Acct: [id number] Name: FAISAL ALARCON Rep #:[id number] : 1945 80 From: Gabriel Lin MD PCP: Dr. Mathieu Virgen MD Status:ADM I NO Location: [place] [address] Assessment & Plan Assessment/Plan (1) Chest pain: [...] patient continue to follow-up with his primary cartography professor per previously arranged appointments. PLAN: Plan 1. I do not feel that further cardiovascular evaluation is indicated at this point in time. 2. The patient should be continued on his same cardiovascular medications as hewas on in the outpatient setting. 3. Patient should follow-up with his primary cartography professor per his previous arranged appointments after discharge. [...] bundle branch block which was not new. [facility] Medical History History of CAD (coronary [...] grossly normal Charges/Coding Visit Charges Inpatient E&M: 07358 Init Hosp L2 Objective Data Vital Signs: [...] (Auto) 70.0, Lymph % (Auto) 17.4 L, [place] % (Auto) 9.6, Eos % (Auto) 2.0, [...] Count 264, MPV10.1, Sodium 136, Potassium 4.2, Isdgceps616, Carbon Dioxide 22.2, Anion Gap 12, BUN [...] % (Auto) 70.0,Lymph % (Auto) 17.4 L, [place] % (Auto) 9.6, Eos % (Auto) 2.0, [...] congestion and interstitial lung disease. Reading Location: [facility] Echocardiogram 05/31/25 15:00 Interpretation Summary Mild concentric [...] applicable): CC: Dr. Mathieu Virgen MD~ Signed [facility]09-15-2025 Progress note [facility] Medical Records Department [address] [place] [address] Progress Note - Hospitalist 06/01/25 0847 MR#: [id number] Acct: [id number] Name: FAISAL ALARCON Rep #:[id number] : 1945 80 From: Narda Kebede MD PCP: Dr. Mathieu Virgen MD Status:ADM I NO Location: [place] [address] Reason for Visit Chief Complaint: Chest pain [...] (Auto) 70.0, Lymph % (Auto) 17.4 L, [place] % (Auto) 9.6, Eos % (Auto) 2.0, [...] Count 264, MPV10.1, Sodium 136, Potassium 4.2, Dheqqryj385, Carbon Dioxide 22.2, Anion Gap 12, BUN [...] congestion and interstitial lung disease. Reading Location: [facility] Physical Exam Narrative GENERAL: cooperative HEENT: Atraumatic; [...] documentation,40 Minutes Charges/Coding Visit Charges Inpatient E&M: 55631 Subs Hosp L2 06/01/25 0856 Cosigner Signature (if applicable): CC: ~ Signed [facility]09-14-2025 Discharge summary Author Marcelo Hernandez [facility] Note Date/Time May 31, 2025 4:56pm [facility] Medical Records Department [address] [place] [address] Emergency Department Summary 05/31/25 MR#: [id number] Acct: [id number] Name: FAISAL ALARCON Rep #:[id number] : 1945 80 From: Marcelo Kennedy PCP: Dr. Mathieu Virgen MD Status:ADM I NO Location: [place] [address] HPI History of Present Illness Chief Complaint: [...] for Family History 1' </=55 or Smoking [facility] Medical History History of CAD (coronary artery [...] (Auto) 70.0 Lymph % (Auto) 17.4 L [place] % (Auto) 9.6 Eos % (Auto) 2.0 [...] congestion and interstitial lung disease. Reading Location: [facility] Portable 1 view chest x-ray was obtained. [...] frequent PVCs with a rate of 78. NE interval was slightly prolonged at 214 ms. [...] risk of acute cardiacevent. Discussed case with cartography professor, Dr. Pulido. He recommended admission to the [...] MD [Primary Care Provider] - Print Language: Citizen [place] Disposition Disposition: Acute Care Hospital [facility] What to do if you have Problems For any increased pain, shortness of breath, bleeding, nausea or vomiting, chestpain, or any unexpected problems, contact your Primary Care Provider. Call [facility] ([phone]) or report to the closest Emergency Room. Call 911 if necessary. 05/31/25 1656 <Electronically signed by Marcelo Hernandez DO> Cosigner Signature (if applicable): CC: Dr. Mathieu Virgen MD ~ Signed [facility] Work Phone: 1(286) 590-422009-14-2025 History and physical note Author Chilango Wheeler [facility] Note Date/Time May 31, 2025 4:31pm [facility] Medical Records Department [address] [place] [address] H&P Exam - Hospitalist 05/31/25 1453 MR#: [id number] Acct: [id number] Name: FAISAL ALARCON Rep #:[id number] : 1945 80 From: Chliango hanley DO PCP: Dr. Mathieu Virgen MD Status:REG E R Location: ED HPI - General General Date of Admission: 05/31/25 Date of Service: 05/31/25 Chief Complaint: Chest pain HPI Narrative FAISAL ALARCON, is a 80 M who presented to [facility] ED on 05/31/2025 with chest pain. Patient follows with [facility]. He was recently hospitalized here from [...] currently. Will be admitted for further management. [facility] Medical History History of CAD (coronary [...] (Auto) 70.0, Lymph % (Auto) 17.4 L, [place] % (Auto) 9.6, Eos % (Auto) 2.0, [...] congestion and interstitial lung disease. Reading Location: [facility] Assessment & Plan Assessment/Plan (1) Chest pain: (2) Elevated troponin: PLAN: Plan Patient is an 80-year-old male who presented to [facility] ED on05/31/2025 with chest pain. 1. Chest [...] mild to moderate aortic stenosis: Follows with [facility]. Recent hospitalization here for syncope on [...] 76 minutes. Charges/Coding Visit Charges Inpatient E&M: 04120 Init Hosp L3 05/31/25 1631 <Electronically signed by Chilango Wheeler DO> Cosigner Signature (if applicable): CC: Dr. Chilango Wheeler DO; Dr. Mathieu Virgen MD~ Signed [facility] Work Phone: 1(340) 857-686209-14-2025 Discharge summary [facility] Medical Records Department [address] [place] [address] Emergency Department Summary 05/31/25 MR#: [id number] Acct: [id number] Name: FAISAL ALARCON Rep #:[id number] : 1945 80 From: Marcelo Kennedy PCP: Dr. Mathieu Virgen MD Status:ADM I NO Location: [place] [address]- 1 HPI History of Present Illness Chief [...] Diabetes and Hypercholesterolemia; Negative for FamilyHistory 1' [facility] Medical History History of CAD (coronary artery [...] (Auto) 70.0 Lymph % (Auto) 17.4 L [place] % (Auto) 9.6 Eos % (Auto) 2.0 [...] congestion and interstitial lung disease. Reading Location: [facility] Portable 1 view chest x-ray was obtained. [...] frequent PVCs with a rate of 78. NE interval was slightly prolonged at 214 ms. [...] risk of acute cardiacevent. Discussed case with cartography professor, Dr. Pulido. He recommended admission to the [...] MD [Primary Care Provider] - Print Language: Citizen [place] Disposition Disposition: Acute Care Hospital [facility] What to do if you have Problems For any increased pain, shortness of breath, bleeding, nausea or vomiting, chestpain, or any unexpected problems, contact your Primary Care Provider. Call [facility] ([phone]) or report tothe closest Emergency Room. Call 911 if necessary. 05/31/25 4500 Cosigner Signature (if applicable): CC: Dr. Mathieu Virgen MD ~ Signed [facility]09-14-2025 History and physical note Author Chilango Wheeler [facility] Note Date/Time May 31, 2025 4:31pm [facility] Medical Records Department [address] [place] [address] H&P Exam - Hospitalist 05/31/25 1453 MR#: [id number] Acct: [id number] Name: FAISAL ALARCON Rep #:[id number] : 1945 80 From: Chilango Herrera honey DO PCP: Dr. Mathieu Virgen MD Status:REG E R Location: ED HPI - General General Date of Admission: 05/31/25 Date of Service: 05/31/25 Chief Complaint: Chest pain HPI Narrative FAISAL ALARCON, is a 80 M who presented to [facility] ED on 05/31/2025 with chest pain. Patient follows with [facility]. He was recently hospitalized here from [...] currently. Will be admitted for further management. [facility] Medical History History of CAD (coronary [...] (Auto) 70.0, Lymph % (Auto) 17.4 L, [place] % (Auto) 9.6, Eos % (Auto) 2.0, [...] congestion and interstitial lung disease. Reading Location: [facility] Assessment & Plan Assessment/Plan (1) Chest pain: (2) Elevated troponin: PLAN: Plan Patient is an 80-year-old male who presented to [facility] ED on05/31/2025 with chest pain. 1. Chest [...] mild to moderate aortic stenosis: Follows with [facility]. Recent hospitalization here for syncope on [...] 76 minutes. Charges/Coding Visit Charges Inpatient E&M: 80526 Init Hosp L3 05/31/25 1631 <Electronically signed by Chilango Wheeler DO> Cosigner Signature (if applicable): CC: Dr. Chilango Wheeler DO; Dr. Mathieu Virgen MD~ Signed [facility] Work Phone: 1(851) 877-321509-14-2025 History and physical note [facility] Medical Records Department [address] [facility] [place] [address] H&P Exam - Hospitalist 05/31/25 1453 MR#: [id number] Acct: [id number] Name: FAISAL ALARCON Rep #:[id number] : 1945 80 From: Chilango hanley DO PCP: Dr. Mathieu Virgen MD Status:REG E R Location: ED HPI - General General Date of Admission: 05/31/25 Date of Service: 05/31/25 Chief Complaint: Chest pain HPI Narrative FAISAL ESHA, is a 80 M who presented to [facility] ED on 05/31/2025 with chest pain. Patient follows with [facility]. He was recently hospitalized here from [...] currently. Will be admitted for further management. [facility] Medical History History of CAD (coronary [...] (Auto) 70.0, Lymph % (Auto) 17.4 L, [place] % (Auto) 9.6, Eos % (Auto) 2.0, [...] congestion and interstitial lung disease. Reading Location: [facility] Assessment & Plan Assessment/Plan (1) Chest pain: (2) Elevated troponin: PLAN: Plan Patient is an 80-year-old male who presented to [facility] ED on05/31/2025 with chest pain. 1. Chest [...] mild to moderate aortic stenosis: Follows with [facility]. Recent hospitalization here for syncope on [...] 76 minutes. Charges/Coding Visit Charges Inpatient E&M: 39550 Init Hosp L3 05/31/25 1631 Cosigner Signature (if applicable): CC: Dr. Chilango Wheeler DO; Dr. Mathieu Virgen MD~ Signed [facility]09-14-2025 Radiology Diagnostic study note [facility] Imaging Services [address] [place] [address] Chest 1 View (Portable) MR#: [id number] Acct: [id number] Name: FAISAL ALARCON Rep #: [id number] : 1945 M 80 From: Desmond Gandara MD PCP: Dr. Mathieu Virgen MD Status: REG E R Study:Chest 1 View (Portable) Date of Exam: 05/31/25 Exam# [id number] Ordering Dr: Marcelo Hernandez DO PROCEDURE: CHEST [...] congestion and interstitial lung disease. Reading Location: [facility] CC: Dr. Marcelo Hernandez DO; Dr. Mathieu Virgen MD ~ Manager Sourcing: Signed [facility]08-14-2025 Discharge summary Author Chilango Wheeler [facility] Note Date/Time April 30, 2025 4: 01pm [facility] Medical Records Department [address] [place] [address] Instructions for Home/Discharge Instructions 04/30/25 1558 MR#: [id number] Acct: [id number] Name: FAISAL ALARCON Rep #:[id number] : 1945 80 From: Chilango hanley DO [...] DO; Dr. Mathieu Virgen MD ~ Signed [facility] Work Phone: 1(205) 546-210308-14-2025 Discharge summary [facility] Medical Records Department [address] [facility] [place] [address] Instructions for Home/Discharge Instructions 04/30/25 1558 MR#: [id number] Acct: [id number] Name: FAISAL ALARCON Rep #:[id number] : 1945 80 From: Chilango hanley DO [...] can be placed): Home, Self Care [facility]/30/[facility] CC: Dr. Narda Prather DO; Dr. Mathieu Virgen MD ~ Signed [facility]08-14-20[facility] History and physical note Author Narda Araiza [facility] Note Date/Time April 30, 2025 6: 45am [facility] Medical Records Department [address] [place] [address] H&P Exam - Hospitalist 04/29/25 190 MR#: [id number] Acct: [id number] Name: FAISAL ALARCON Rep #:[id number] : 1945 80 From: Narda Musa DO PCP: Dr. Mathieu Virgen MD Status:ADM I NO Location: [address] HPI - General General Date [...] walker prn at baseline who presents to [facility] ER complaining of syncopal event. Mr. [...] expected to be less than 2 midnights. [facility] Medical History (Updated 04/29/25 @ 20:20 [...] (Auto) 71.4 H, Lymph % (Auto) 14.5 L,[place] % (Auto) 10.5 H, Eos % (Auto) [...] most likely reactive lymph nodes. Reading Location: [facility] Assessment & Plan Assessment/Plan (1) Syncope: QUALIFIERS: [...] 85 minutes. Charges/Coding Visit Charges OBSV E&M: 33676 Observ/hosp same date L3 04/30/25 0645 <Electronically signed by Narda Prather DO> Cosigner Signature (if applicable): CC: Dr. Narda Prather DO; Dr. Mathieu Virgen MD~ Signed [facility] Work Phone: 1(324) 374-548408-14-2025 History and physical note [facility] Medical Records Department [address] [place] [address] H&P Exam - Hospitalist 04/29/25 1905 MR#: [id number] Acct: [id number] Name: FAISAL ALARCON Rep #:[id number] : 1945 80 From: Narda Musa DO PCP: Dr. Mathieu Virgen MD Status:ADM I NO Location: [place] [address] HPI - General General Date of Admission: [...] walker prn at baseline who presents to [facility] ER complaining of syncopal event. Mr. [...] is expected mansi less than 2 midnights. [facility] Medical History (Updated 04/29/25 @ 20:20 [...] (Auto) 71.4 H, Lymph % (Auto) 14.5 L,[place] % (Auto) 10.5 H, Eos % (Auto) [...] most likely reactive lymph nodes. Reading Location: [facility] Assessment & Plan Assessment/Plan (1) Syncope: QUALIFIERS: [...] 85 minutes. Charges/Coding Visit Charges OBSV E&M: 72815 Observ/hosp same date L3 04/30/25 0645 Cosigner Signature (if applicable): CC: Dr. Narda Prather DO; Dr. Mathieu Virgen MD~ Signed [facility]08-13-2025 Discharge summary Author Yola Ally [facility] Note Date/Time April 29, 2025 7: 15pm [facility] Medical Records Department [address] [place] [address] Emergency Department Summary 04/29/25 MR#: [id number] Acct: [id number] Name: FAISAL ALARCON Rep #:[id number] : 1945 80 From: Yola Canales MD [...] before. He did eat and drink today. [facility] Medical History Diastolic dysfunction Dyspnea Diabetes Sleep [...] 71.4 H Lymph % (Auto) 14.5 L [place] % (Auto) 10.5 H Eos % (Auto) [...] likely reactive lymph nodes. Reading Location: [facility] Management Discussion w/another healthcare provider: Hospitalist Discharge [...] MD [Primary Care Provider] - Print Language: Citizen [place] What to do if you have Problems For any increased pain, shortness of breath, bleeding, nausea or vomiting, chestpain, or any unexpected problems, contact your Primary Care Provider. Call [facility] ([phone]) or report to the closest Emergency Room. Call 911 if necessary. 04/29/251914 <Electronically signed by Yola Canales MD> Cosigner Signature (if applicable): CC: Dr. Mathieu Virgen MD ~ Signed [facility] Work Phone: 1(969) 661-108108-13-2025 Discharge summary [facility] Medical Records Department [address] [place] [address] Emergency Department Summary 04/29/25 MR#: [id number] Acct: [id number] Name: FAISAL ALARCON Rep #:[id number] : 1945 80 From: Yola Canales MD [...] before. He did eat and drink today. [facility] Medical History Diastolic dysfunction Dyspnea Diabetes Sleep [...] 71.4 H Lymph % (Auto) 14.5 L [place] % (Auto) 10.5 H Eos % (Auto) [...] most likely reactive lymph nodes. Reading Location: [facility] Management Discussion w/another healthcare provider: Hospitalist Discharge [...] MD [Primary Care Provider] - Print Language: Citizen Of [place] What to do if you have Problems For any increased pain, shortness of breath, bleeding, nausea or vomiting, chestpain, or any unexpected problems, contact your Primary Care Provider. Call [facility] ([phone]) or report tothe closest Emergency Room. Call 911 if necessary. 04/29/251914 Cosigner Signature (if applicable): CC: Dr. Mathieu Virgen MD ~ Signed [facility]08-13-2025 Radiology Diagnostic study note [facility] Imaging Services [address] [place] [address] CTA Chest W/WO Contrast MR#: [id number] Acct: [id number] Name: FAISAL ALARCON Rep #: [id number] : 1945 M 80 From: Alcira Tierney MD PCP: Dr. Mathieu Virgen MD Status: REG E R Study:CTA Chest W/WO Contrast Date of Exam: 04/29/25 Exam# [id number] Ordering Dr: Honey Canales MD EXAM: CT [...] likely reactive lymph nodes. Reading Location: [facility] CC: Dr. Yola Canales MD; Dr. Mathieu Virgen MD ~ Manager Sourcing: Signed [facility]07-23-2025 Evaluation note* Diagnosis Onset Date Resolution Status [...] May 2:56pm Elevated troponin acute 2024 2:56pm [facility] Work Phone: 1(519) 389-887107-23-2025 Evaluation note* Diagnosis Onset Date Resolution Status [...] atrial fibrillation acute May 31, 2025 2:56pm [facility] Work Phone: 1(565) 136-689207-23-2025 Evaluation note* Diagnosis Onset Date Resolution Status [...] 11, 2025 11:18am Syncope resolved May 11:18am [facility] Work Phone: 1(694) 168-1215661722-30-2921 Telephone encounter Note* Telephone Encounter - Jaylene Henley LPN - 04/03/2025 11:11 AM EDT Faxed application. [facility]07-18-2025 Miscellaneous Notes* Telephone Encounter - Jaylene Henley LPN - 04/03/2025 11:11 AM EDT Faxed application. * Telephone Encounter - Mathieu Virgen MD - 04/03/2025 10:45 AM EDT done * Telephone Encounter - Janet King MA - 04/02/2025 4:14 PM EDT Type of form: Prescription Assistance Form received via walk in When form is completed, Fax form to [facility] Form has been forwarded to Physician Desk: Dr. Virgen Prescription pended to go to [facility], as listed on form. Janet King MA documented [facility]07-[facility]25 Telephone encounter Note * Telephone Encounter - Mathieu Virgen MD - 04/03/2025 10:45 AM EDT done [facility]07-17-2025 Telephone encounter Note* Telephone Encounter - Janet King MA - 04/02/2025 4:14 PM EDT Type of form: Prescription Assistance Form received via walk in When form is completed, Fax form to [facility] Form has been forwarded to Physician Desk: Dr. Virgen Prescription pended to go to [facility], as listed on form. Janet King MA [facility]07-16-2025 Radiology Diagnostic study note [facility] Imaging Services [address] [place] [id number] Chest without Contrast MR#: [id number] Acct: [id number] Name: FAISAL ALARCON Rep #: [id number] : 1945 M 79 From: Ernst Ngo DO PCP: Dr. Mathieu Virgen MD Status: RAJIV [place] Study:Chest without Contrast Date of Exam: 04/01/25 Exam# [id number] Ordering Dr: Megan Macario HARBOR DEPARTMENT MANAGER-C PROCEDURE: CHEST WITHOUT CONTRAST 04/01/2025 REASON FOR [...] Mathieu Virgen MD; Megan Macario NP ~ Manager Sourcing: Signed [facility]07-11-2025 Telephone encounter Note* Telephone Encounter - Christian oBb LPN - 03/27/2025 4:01 PM EDT [facility] Christian Bob LPN [facility]07-11-2025 Miscellaneous Notes* Telephone Encounter - Christian Bob LPN - 03/27/2025 4:01 PM EDT [facility]. Christian Bob LPN * Telephone Encounter - Nisha Wilson - 03/27/2025 3:38 PM EDT Patient's daughter, Farida calling today asking if the medication refill can be completed before theend of the day. Patient is out of the medication. documented in this encounterLuther[facility] Hospital07-11-2025 Telephone encounter Note * Telephone Encounter - Nisha Wilson - 03/27/2025 3:38 PM EDT Patient's daughter, Farida calling today asking if the medication refill can be completed before theend of the day. Patient is out of the medication. [facility]06-16-2025 Procedure notey [facility] Pulmonary Services/Neurology [address] [place] [address] MR#: [id number] Acct: [id number] Name: FAISAL ALARCON Rep #:[id number] : 1945 79 From: Marvin Reeves DO Referring Dr: Megan Macario HARBOR DEPARTMENT MANAGER-C Status: REG CLI Location: PSN Date: Sex: M C PSN 6 Minute Walk Test 6 Minute Walk Test 6 Minute Walk Test: 6 Minute Walk Test PSN:6-Minute Walk Test Start: 02/26/25 14:00 Freq: Status: Active Protocol: RESP.6MINW Document 02/26/25 14:00 [facility] (Rec: 02/26/25 14:37 [facility] [id number]) 6 Minute Walk Test Date Performed 02/26/25 [...] Dictated: 03/02/25 1015 Date Transcribed: 03/02/25 1015 Manager Sourcing: Dr. Marvin Reeves DO Signed [facility]05-28-2025 Miscellaneous Notes* Telephone Encounter - Jaylene Henley LPN - 02/11/2025 9:09 AM EDT [facility] requesting DM note faxed to them documenting diabetes visit. Sent as requested. documented in this encounterLuther[facility] Hospital05-28-2025 Telephone encounter Note * Telephone Encounter - Jaylene Henley LPN - 02/11/2025 9:09 AM EDT [facility] requesting DM note faxed to them documenting diabetes visit. Sent as requested. [facility]05-23-2025 Telephone encounter Note* Telephone Encounter - Jaylene Henley LPN - 02/06/2025 1:16 PM EDT Scan on 02/05/2025 4:36 PM by ProviderJulian PA-C: Hematology [facility]05-23-2025 Miscellaneous Notes* Telephone Encounter - Jaylene Henley LPN - 02/06/2025 1:16 PM EDT Scan on 02/05/2025 4:36 PM by ProviderJulian PA-C: Hematology documented in this encounterLutheran Hospital05-12-2025 NoteHNO ID: [id number] Author: MATHIEU VIRGEN MD Service: ? Author [...] every afternoon. Ordered by cardiology Blood-Glucose Sensor ([employer] G7 SENSOR) sayra Apply new sensor every [...] Quit date: 09/17/1980 Year (more content not included)...[facility] [place] [facility]05-12-2025 History of Present illness Narrative* Mathieu Virgen [...] every afternoon. Ordered by cardiology Blood-Glucose Sensor ([employer] G7 SENSOR) sayra Apply new sensor every [...] well. Mathieu Virgen MD documented in this encounterLutheran Hospital05-10-2025 NoteHNO ID: [id number] Author: JAMAL MACE, ? Service: ? Author [...] Sister Cancer Sister Co (more content not included)...[facility] [place] [facility]05-10-2025 History of Present illness Narrative* Jamal Mace [...] fracture of foot, unspecified laterality, initial encounter (S92.908K) - X-rays from January 12, 2025, show [...] to prevent further displacement. Attestation Recording using Startpack software for draft documentation of the visit was discussed with the patient/authorized small business representative; all questions welcomed and answered. Patient/authorized small business representative agreed to proceed Jamal Mace DPM * Pricilla Kuhn LPN - 01/22/2025 3:23 PM EDT AMB ROOMING INTAKE FLOWSHEET DATA Pain Pain Level: 2 Pain Location: Foot-Left Description: Tenderness Duration Amount of Time: 2 Duration Units: Weeks Frequency: Intermittent Intervention/Comfort measure: Relaxation, Reposition Patient presents with: Left Foot - New, Pain, Swelling, Fracture Pricilla Kuhn LPN documented in this encounterLutheran Hospital05-08-2025 History of Present illness Narrative* Malik [...] PATIENT PRESENTS WITH AN IMPLANTABLE OR ATTACHED RIM TURNING FINISHER: No RADIOLOGY DEPARTMENT: General X-ray: Exam(s) Completed: Lower Extremity X- Ray(s): Foot, Left PERIPHERAL IV DATA: Not applicable SIGNED BY: RT Natalie(R) January 22, 2025 4:02 PM documented in this encounterLutheran Hospital05-08-2025 NoteHNO ID: [id number] Author: MALIK LUNA RT(Eugenie) Service: Radiology Author [...] PATIENT PRESENTS WITH AN IMPLANTABLE OR ATTACHED RIM TURNING FINISHER: No RADIOLOGY DEPARTMENT: General X-ray: Exam(s) Completed: Lower Extremity X-Ray(s): Foot, Left PERIPHERAL IV DATA: Not applicable SIGNED BY: RT Natalie(R) January 22, 2025 4:02 [facility]05-08-2025 Instructions* Patient Instructions* Jamal Mace - [...] decreased vibratory sensation noted. documented in this encounterLutheran Hospital05-08-2025 NoteHNO ID: [id number] Author: PRICILLA KUHN LPN Service: ? Author Type: LICENSED NURSE Type: Progress Notes Filed: 01/24/2025 07:08 Note Text: AMB ROOMING INTAKE FLOWSHEET DATA Pain Pain Level: 2 Pain Location: Foot-Left Description: Tenderness Duration Amount of Time: 2 Duration Units: Weeks Frequency: Intermittent Intervention/Comfort measure: Relaxation, Reposition Patient presents with: Left Foot - New, Pain, Swelling, Fracture [facility] Telephone encounter Note* Telephone Encounter - Liyah Monroy RN - 01/22/2025 8:17 AM EDT Jacki with [facility] called in and need the diagnosis the provider put on the CBC for the pathologistinterpretation. I let her know it was : Leukocytosis, unspecified type [D72.829] Liyah Monroy RN [facility]05-08-2025 Miscellaneous Notes* Telephone Encounter - Liyah Monroy RN - 01/22/2025 8:17 AM EDT Jacki with [facility] called in and need the diagnosis the provider put on the CBC for the pathologistinterpretation. I let her know it was : Leukocytosis, unspecified type [D72.829] Liyah Monroy RN documented in this encounterLutheran Hospital05-07-2025 Evaluation note* Diagnosis Onset Date Resolution [...] exertion acut e April 08, 2025 9:06am [facility] Work Phone: 1(556) 723-153205-07-2025 Evaluation note* Diagnosis Onset Date Resolution Status [...] fibrillation chron ic April 29, 2025 7:37pm [facility] Work Phone: 1(603) 112-713805-02-2025 Telephone encounter Note* Telephone Encounter - Lulu Walls MA - 01/16/2025 3:35 PM EDT Patients daughter came into office and picked up hard Rx for post op shoe. Lulu Walls MA [facility]05-02-2025 Miscellaneous Notes* Telephone Encounter - Lulu [...] a post op shoe. documented in this encounterLutheran Hospital05-01-2025 Telephone encounter Note * Telephone Encounter - Mathieu Virgen MD - 01/15/2025 2:13 PM EDT See below. Already wrote for post op shoe that can be obtained here or elsewhere. Script is on thisnote. In addition, she said earlier she had a boot at home. ??? [facility]05-01-2025 Telephone encounter Note* Telephone Encounter - [...] Please call and advise. Liyah Monroy RN [facility]05-01-2025 Telephone encounter Note* Telephone Encounter - Mathieu Virgen MD - 01/15/2025 12:04 PM EDT Let her know fractures of this type need followed by a specialist to ensure they heal correctly. [facility]05-01-2025 Telephone encounter Note* Telephone Encounter - Reanna Cloud - 01/15/2025 8:42 AM EDT Spoke with daughter to schedule podiatry appointments but she has questions re: what the podiatristwould do. Transferred to [facility] for assistance. [facility]04-29-2025 Telephone encounter Note* Telephone Encounter - Reanna Cloud - 01/13/2025 8:28 AM EDT Attempted to contact daughter, Farida, but no answer and voicemail full. Should she call back, please schedule podiatry consult. [facility]04-29-2025 Telephone encounter Note* Telephone Encounter - Lulu Walls MA - 01/13/2025 8:06 AM EDT Spoke with both patient and his daughter Farida. Informed of result. Farida states patient already has a boot at home he can wear. Sending to schedulers for Podiatry consult. Lulu Walls MA T [facility]04-29-2025 Miscellaneous Notes* Telephone Encounter - Julianna [...] 13, 2025 7:03 AM documented in this encounterLutheran Hospital04-29-2025 Telephone encounter Note * Telephone Encounter [...] Lynn LPN January 13, 2025 7:03 AM [facility]04-28-2025 Telephone encounter Note* Telephone Encounter - Mathieu Virgen MD - 01/12/2025 7:30 PM EDT Shows a fracture in his foot. See if can get into podiatry. See if we can get him in a post op shoe. [facility]04-28-2025 History of Present illness Narrative* Malik [...] PATIENT PRESENTS WITH AN IMPLANTABLE OR ATTACHED RIM TURNING FINISHER: No RADIOLOGY DEPARTMENT: General X-ray: Exam(s) Completed: Lower Extremity X- Ray(s): Foot, Left PERIPHERAL IV DATA: Not applicable SIGNED BY: RT Natalie(Eugenie) January 12, 2025 5:23 PM documented in this encounterLutheran Hospital04-28-2025 NoteHNO ID: [id number] Author: MALIK LUNA RT (R) Service: Radiology [...] PATIENT PRESENTS WITH AN IMPLANTABLE OR ATTACHED RIM TURNING FINISHER: No RADIOLOGY DEPARTMENT: General X-ray: Exam(s) Completed: Lower Extremity X-Ray(s): Foot, Left PERIPHERAL IV DATA: Not applicable SIGNED BY: RT Natalie(Eugenie) January 12, 2025 5:23 [facility]04-28-2025 NoteHNO ID: [id number] Author: MATHIEU VIRGEN MD Service: ? Author [...] Reviewed current medications, allergie (more content not included)...[facility]04-28-2025 History of Present illness Narrative* Mathieu Virgen [...] every afternoon. Ordered by cardiology Blood-Glucose Sensor ([employer] G7 SENSOR) sayra Apply new sensor every [...] LEFT Mathieu Virgen MD documented in this encounterLutheran Hospital03-27-2025 Evaluation note* Diagnosis Onset Date Resolution [...] fibrillation chron ic January 26, 2025 9:38am [facility] Work Phone: 1(652) 740-368203-27-2025 Evaluation note* Diagnosis Onset Date Resolution Status [...] exertion acut e April 08, 2025 9:06am [facility] Work Phone: 1(980) 284-820203-20-2025 Telephone encounter Note* Telephone Encounter - Tonia Ellis LPN - 12/04/2024 4:20 PM EDT Pt and caregiver notified via [employer]. [facility]03-20-2025 Miscellaneous Notes* Telephone Encounter - Tonia Ellis LPN - 12/04/2024 4:20 PM EDT Pt and caregiver notified via [employer]. * Telephone Encounter - Tonia Ellis LPN - 12/04/2024 11:51 AM EDT Rec'd and in scanned documents. Pharmacy notified. * Telephone Encounter - Reanna Brannon RN - 12/04/2024 11:17 AM EDT Medardo from [employer] calls and reports that patient's medication is approved until 09/06/2025. CaseNumber: [id number] Medardo is faxing over approval letter. Reanna Brannon RN * Telephone Encounter - Aly Marcial MA - 12/03/2024 5:55 PM EDT Received PA from pharmacy for Fiasp Flextouch. Tried to complete through covermymeds but was instructed to call [employer] at . Spoke to [facility] who will submit info to pharmacy for PA. Aly Marcial MA documented in this encounterLutheran Hospital03-20-2025 Telephone encounter Note * Telephone Encounter - Tonia Ellis LPN - 12/04/2024 11:51 AM EDT Rec'd and in scanned documents. Pharmacy notified. [facility]03-20-2025 Telephone encounter Note* Telephone Encounter - Reanna Brannon RN - 12/04/2024 11:17 AM EDT Medardo from [employer] calls and reports that patient's medication is approved until 09/06/2025. CaseNumber: [id number] Medardo is faxing over approval letter. Reanna Brannon RN [facility]03-19-2025 Telephone encounter Note* Telephone Encounter - Aly Marcial MA - 12/03/2024 5:55 PM EDT Received PA from pharmacy for Fiasp Flextouch. Tried to complete through covermymeds but was instructed to call [employer] at . Spoke to [facility] who will submit info to pharmacy for PA. Aly Marcial MA [facility]03-18-2025 NoteHNO ID: [id number] Author: MATHIEU VIRGEN MD Service: ? Author [...] up at 12. Has been following with [facility]. Seeing pulmonary. Uro: follows with [...] a day before meals. Getting through [facility] insulin glargine (BASAGLAR KWIKPEN U-100 INSULIN) [...] mouth every 12 hours. Prescribed by outside cartography professor No current facility-administered medications for this visit. [...] and laser of bladder (more content not included)...[facility]03-18-2025 History of Present illness Narrative* Mathieu Virgen MD - 12/02/2024 3:36 PM EDT Patient presents with: Follow Up HPI: Patient presents today for office visit for medication reconciliation per insurance. Labs done. Reviewed overall ar stable. His bmp is stable with gfr of 62. A1c is 7.0. lipids are good. White count is slightly up at 12. Has been following with [facility]. Seeing pulmonary. Uro: follows with [...] mouth every 12 hours. Prescribed by outside cartography professor No current facility-administered medications for this visit. [...] 1. Acute diastolic CHF (congestive heart failure) ([facility]) - ICD9: 428.31, 428.0, ICD10: I50.31 (primary diagnosis) - no signs of overload. Overall is well compensated. Follow with cardiolgy. Continue current meds. 2. Psoriatic arthritis ([facility]) - ICD9: 696.0, ICD10: L40.50 - stable. 3. Schizophrenia, chronic condition ([facility]) - ICD9: 295.62, ICD10: F20.9 - doing well. No complaints. 4. 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 Coming on . Await appt [facility]03-15-2025 Miscellaneous Notes* Telephone Encounter - Mathieu Virgen MD - 11/29/2024 9:18 AM EDT Reviewed. Coming on . Await appt * Telephone Encounter - Miley Pemberton MA - 11/28/2024 4:55 PM EDT Pt had blood work done. View External Labs - Chemistry [ID [id number]] View External Labs - Miscellaneous Lab [ID [id number]] View External Labs - Chemistry [ID [id number]] Miley Pemberton MA documented in this encounterLutheran Hospital03-14-2025 Telephone encounter Note * Telephone Encounter - Miley Pemberton MA - 11/28/2024 4:55 PM EDT Pt had blood work done. View External Labs - Chemistry [ID [id number]] View External Labs - Miscellaneous Lab [ID [id number]] View External Labs - Chemistry [ID [id number]] Miley Pemberton MA [facility]03-13-2025 Telephone encounter Note* Telephone Encounter - Jaylene Henley LPN - 11/27/2024 11:40 AM EDT Left message for Farida that lab orders have been placed. [facility]03-13-2025 Miscellaneous Notes* Telephone Encounter - Jaylene [...] while they are here. Please assist. Reanna Cluod documented in this encounterLutheran Hospital03-13-2025 Telephone encounter Note * Telephone Encounter - Mathieu Virgen MD - 11/27/2024 11:37 AM EDT ordered [facility]03-13-2025 Telephone encounter Note* Telephone Encounter - Jaylene Henley LPN - 11/27/2024 11:30 AM EDT Labs pending to review and file. [facility]03-13-2025 Telephone encounter Note* Telephone Encounter - Reanna Cloud - 11/27/2024 9:52 AM EDT Patient and daughter are here for labs and MyChart is stating that the patinet is due for an Urine Albumin:Creatinine Ration, A1C and LDL Cholesterol but those orders are not in the patient's chart. Patient/daughter want them done today while they are here. Please assist. Reanna Cloud [facility]03-12-2025 Telephone encounter Note* Telephone Encounter - Jaylene Henley LPN - 11/26/2024 5:17 PM EDT Left detailed message on personalized voicemail. [facility]03-12-2025 Miscellaneous Notes* Telephone Encounter - Jaylene [...] needs called with information documented in this encounterLutheran Hospital03-12-2025 Telephone encounter Note * Telephone Encounter - Mathieu Virgen MD - 11/26/2024 5:07 PM EDT I am assuming he is taking it once a day. Rx sent [facility]03-12-2025 Telephone encounter Note* Telephone Encounter - Tierra Crawford, NILDA - 11/26/2024 3:58 PM EDT patient daughter is calling in stating that Dr Daley left the office today without filling patients finasteride. daughter is requesting that pcp fill the medication for patient. please review and advise. if ok [facility] daughter needs called with information [facility]03-10-2025 Telephone encounter Note* Telephone Encounter - Janet King MA - 11/24/2024 10:44 AM EDT Scheduled 12/02/24 [facility]03-10-2025 Miscellaneous Notes* Telephone Encounter - Janet [...] - 11/12/2024 2:31 PM EST [facility] patient daughter told [...] of this. Please advise documented in this encounterLutheran Hospital03-10-2025 Telephone encounter Note * Telephone Encounter - Janet King MA - 11/24/2024 10:16 AM EDT Next visit 12/02/24 [facility]03-10-2025 Miscellaneous Notes* Telephone Encounter - Janet King MA - 11/24/2024 10:16 AM EDT Next visit 12/02/24 * Telephone Encounter - Nisha Wilson - 11/24/2024 9:33 AM EDT Patient's daughter calling asking for an medication: dilTIAZem CD (CARDIZEM CD, CARTIA XT) 120 mg 24 hr capsule () Patient last seen 10/31/23 Future visit scheduled: yes [facility]AC[facility] documented in this encounterLutheran Hospital03-10-2025 Telephone encounter Note * Telephone Encounter - Nisha Wilson - 11/24/2024 9:33 AM EDT Patient's daughter calling asking for an medication: dilTIAZem CD (CARDIZEM CD, CARTIA XT) 120 mg 24 hr capsule () Patient last seen 10/31/23 Future visit scheduled: yes PHARMACY: [facility]. [facility]02-27-2025 Telephone encounter Note* Telephone Encounter - Lulu Walls MA - 11/13/2024 2:46 PM EST Message left for daughter Farida to call back to schedule sooner appointment. Lulu Walls MA [facility]02-27-2025 Telephone encounter Note* Telephone Encounter - Marilin Stein MA - 11/13/2024 12:27 PM EST Please see message from pt's Daughter and advise if willing to order labs. Marilin Stein MA [facility]02-27-2025 Miscellaneous Notes* Telephone Encounter - Marilin Stein MA - 11/13/2024 12:27 PM EST Please see message from pt's Daughter and advise if willing to order labs. Marilin Stein MA documented in this encounterLutheran Hospital02-26-2025 Telephone encounter Note * Telephone Encounter - Mathieu Virgen MD - 11/12/2024 4:52 PM EST See if we can get him in sooner. [facility]02-26-2025 Telephone encounter Note* Telephone Encounter - Lulu Walls MA - 11/12/2024 4:50 PM EST Has an appointment 12/19/24. Is that out too far? [facility]02-26-[facility] Telephone encounter Note* Telephone Encounter - [...] into see me in a few weeks [facility]02-26-2025 Telephone encounter Note* Telephone Encounter - [...] says with all of this. Please advise [facility]02-14-2025 NoteHNO ID: [id number] Author: SUKH HALL APRN.MANUFACTURING MAINTENANCE TECHNICIAN Service: ? Author Type: Nurse Practitioner Type: [...] every afternoon. Ordered by cardiology Blood-Glucose Sensor ([employer] G7 SENSOR) sayra Apply new sensor every [...] day. Blood-Glucose Meter,Continuous (FREESTYLE MARIELLE 3 READER) [facility] Use to check blood sugar [...] mouth every 12 hours. Prescribed by outside cartography professor No current facility-admin (more content not included)...[facility]02-14-2025 History of Present illness Narrative* Sukh Hall APRN.MANUFACTURING MAINTENANCE TECHNICIAN - 10/31/2024 2:44 PM EST Chief Complaint [...] day. Blood-Glucose Meter,Continuous (FREESTYLE MARIELLE 3 READER) [facility] Use to check blood sugar [...] mouth every 12 hours. Prescribed by outside cartography professor No current facility-administered medications on file prior [...] per day, discussed with Sergey Carreon at [facility]. Has follow up with Dr. Bailey aguilar. 4. Systolic congestive heart failure, unspecified HF chronicity (HCC) - ICD9: 428.20, 428.0, ICD10:I50.20 - Continue current medications - Encouraged sodium restriction - Encouraged daily weights Patient instructed if he develops swelling, weight gain or SOB to follow up with [facility] for guidance. Sukh Hall APRN.MANUFACTURING MAINTENANCE TECHNICIAN documented in this encounterLutheran Hospital02-14-[facility]25 Telephone encounter Note * Telephone Encounter [...] waiting for a new C-pap machine from [facility]. (Nisha is calling them to ask about the machine as she is aware that we are not able to do anything about that). Patient wants to discuss the fluid restriction. Nisha aware that if he is dehydrated and needs fluids he should go to the ER but she said he is not to that point. Appointment remains. Jackelin Tinajero RN [facility]02-14-[facility]25 Miscellaneous Notes* Telephone Encounter - Jackelin [...] waiting for a new C-pap machine from [facility]. (Nisha is calling them to ask [...] remains. Jackelin Tinajero RN documented in this encounterLutheran Hospital01-30-2025 Telephone encounter Note * Telephone Encounter - Lulu Walls MA - 10/16/2024 11:52 AM EST We do not have samples. Spoke with daughter Farida and informed her of this. She is requesting a Rx for the Dexcom sensors (G7) to the [facility] in [place] while waiting for the company to ship more. Patient has finger stick meter at home but daughter states this is not super convenient for them to check this way. Lulu Walls MA [facility]01-30-2025 Miscellaneous Notes* Telephone Encounter - Lulu Walls MA - 10/16/2024 11:52 AM EST We do not have samples. Spoke with daughter Farida and informed her of this. She is requesting a Rx for the Dexcom sensors (G7) to the [facility] in [place] while waiting for the company to ship [...] get one. Please phone Farida with reply: [phone] documented in this encounterLutheran Hospital01-30-2025 Telephone encounter Note * Telephone Encounter - Mathieu Virgen MD - 10/16/2024 10:34 AM EST Do we have anything like that available? Might need to buy one if not [facility]01-30[facility] Telephone encounter Note* Telephone Encounter - Osvaldo Regalado RN - 10/16/2024 10:31 AM EST Daughter Farida reports patient had 3 Dexcom G 7 sensors that malfunctioned. They notified the company, but it takes 5-7 days to receive new one. Asking if pcp has samples of these sensors or knows how they can get one. Please phone Farida with reply: [phone] [facility]01-23-[facility]25 Telephone encounter Note* Telephone Encounter - Julianna Hood APRN.CNP - 10/09/2024 8:43 AM EST The following approved medication requests have been transmitted electronically. Requested Prescriptions Pending Prescriptions Disp Refills metFORMIN ER (GLUCOPHAGE XR) 500 mg 24 hr tablet 360 tablet 3 Sig: Take 2 tablets by mouth two times a day before meals. Julianna Hood APRN.CNP [facility]01-23-2025 Miscellaneous Notes* Telephone Encounter - Julianna [...] 09, 2024 7:52 AM documented in this encounterLutheran Hospital01-23-2025 Telephone encounter Note * Telephone Encounter [...] Frey LPN October 09, 2024 7:52 AM [facility]01-07[facility]25 NoteHNO ID: [id number] Author: DENISHA SHEPARD APRN.MANUFACTURING MAINTENANCE TECHNICIAN Service: ? Author Type: Nurse Practitioner Type: Progress Notes Filed: 09/23/2024 18:18 Note Text: This is a 79 year old male who presents today with: Patient presents with: ER F/U: [facility] ER 09/20/24 dx:CP HISTORY OF PRESENT ILLNESS: Faisal Alarcon is a 79 year old male. Patient presents with: ER F/U: [facility] ER 09/20/24 dx:CP Patient presents today for emergency room follow-up. He went to the emergency room on 09/20/2024 with complaints of chest discomfort. He had been given nitroglycerin by EMS that did improve his pain. He had negative cardiac enzymes and stable lab work. There was no STEMI. The emergency room did consult patient's cartography professor, and it was recommended to start patient [...] day. Blood-Glucose Meter,Continuous (FREESTYLE MARIELLE 3 READER) [facility] Use to check blood sugar [...] mouth every 12 hours. Prescribed by outside cartography professor insulin glargine (BASAGLAR KWIKPEN U-100 INSULIN) 100 [...] daily. Dx: 250.00. Insul (more content not included)...[facility] 09-23-2024 History of Present illness Narrative* Denisha Shepard, PAIGE.MANUFACTURING MAINTENANCE TECHNICIAN - 09/23/2024 6:10 PM EST This is a 79 year old male who presents today with: Patient presents with: ER F/U: [facility] ER 09/20/24 dx:CP HISTORY OF PRESENT ILLNESS: Faisal Alarcon is a 79 year old male. Patient presents with: ER F/U: [facility] ER 09/20/24 dx:CP Patient presents today for emergency room follow-up. He went to the emergency room on 09/20/2024 with complaints of chest discomfort. He had been given nitroglycerin by EMS that did improve his pain. He had negative cardiac enzymes and stable lab work. There was no STEMI. The emergency room did consult patient's cartography professor, and it was recommended to start patient [...] day. Blood-Glucose Meter,Continuous (FREESTYLE MARIELLE 3 READER) [facility] Use to check blood sugar [...] mouth every 12 hours. Prescribed by outside cartography professor insulin glargine (BASAGLAR KWIKPEN U-100 INSULIN) 100 [...] as needed for worsening/no improvement. Denisha Shepard APRN.MANUFACTURING MAINTENANCE TECHNICIAN documented in this encounterLutheran Hospital01-07-2025 Telephone encounter Note * Telephone Encounter - Denisha Shepard APRN.CNP - 09/23/2024 5:14 PM EST See office notes. Has appt w/ cardiology today. Denisha Shepard APRN.CNP [facility]01-07-2025 Miscellaneous Notes* Telephone Encounter - Denisha Shepard APRN.CNP - 09/23/2024 5:14 PM EST See office notes. Has appt w/ cardiology today. Denisha Shepard APRN.CNP * Telephone Encounter - Liyah Monroy RN - 09/22/2024 12:49 PM EST Pts daughter called in and reports her father was in [facility] ER 09/20/24. She reports Pt was having chestpain and that is why he went to the ER. Pts daughter states they didn't find anything wrong with him, everything was the same as before. Pt scheduled with Denisha Shepard HARBOR DEPARTMENT MANAGER 09/23/24 at 240 pm. She reports he father has been feeling lightheaded and dizzy, and she thinks it's because on 09/13/[address] Ponce double his dose of [...] few weeks from now. documented in this encounterLutheran Hospital01-06-2025 Telephone encounter Note * Telephone Encounter - Liyah Monroy RN - 09/22/2024 12:49 PM EST Pts daughter called in and reports her father was in [facility] ER 09/20/24. She reports Pt was having chestpain and that is why he went to the ER. Pts daughter states they didn't find anything wrong with him, everything was the same as before. Pt scheduled with Denisha Shepard HARBOR DEPARTMENT MANAGER 09/23/24 at 240 pm. She reports he father has been feeling lightheaded and dizzy, and she thinks it's because on 09/13/[address] Dr Ponce double his dose of [...] is out a few weeks from now. [facility]12-17-2024 Telephone encounter Note* Telephone Encounter - Angelina Bliss RN - 09/02/2024 3:51 PM EST Patient's daughter Farida, returned call and given provider's message below. Angelina Bliss RN [facility]12-17-2024 Miscellaneous Notes* Telephone Encounter - Angelina [...] symptoms that daughter knows of. Protocols used: [id number] documented in this encounterLutheran Hospital12-17-2024 Telephone encounter Note * Telephone Encounter - Janet King MA - 09/02/2024 3:18 PM EST Left message for patient to return call and speak to triage nurse Janet King Ma [facility]12-17-2024 Telephone encounter Note* Telephone Encounter - Mathieu Virgen MD - 09/02/2024 1:07 PM EST If any pain, nausea or vomiting or distention to er for disimpaction if it is the rectum and can't use a suppository or enema. [facility]12-17-[facility]24 Telephone encounter Note* Telephone Encounter - [...] symptoms that daughter knows of. Protocols used: [id number] [facility]12-09-2024 Telephone encounter Note* Telephone Encounter - Kennedi Frey LPN - 08/25/2024 8:12 AM EST Spoke with Farida daughter of pt and message below given. Farida verbalizes understanding. Kennedi Frey LPN [facility]12-09-2024 Miscellaneous Notes* Telephone Encounter - Kenendi Frey LPN - 08/25/2024 8:12 AM EST [...] 22, 2024 11:53 AM documented in this encounterLutheran Hospital12-06-2024 Telephone encounter Note * Telephone Encounter - Janet King MA - 08/22/2024 1:35 PM EST Left message for patient to return call. Janet King Ma [facility]12-06-2024 Telephone encounter Note* Telephone Encounter - Julianna Hood APRN.CNP - 08/22/2024 12:56 PM EST The following approved medication requests have been transmitted electronically. Requested Prescriptions Pending Prescriptions Disp Refills furosemide (LASIX) 40 mg tablet 90 tablet 1 Sig: Take 1 tablet by mouth once daily. Julianna Hood APRN.CNP [facility]12-06-2024 Miscellaneous Notes* Telephone Encounter - Julianna [...] 22, 2024 11:52 AM documented in this encounterLutheran Hospital12-06-2024 Telephone encounter Note * Telephone Encounter - Julianna Hood APRN.CNP - 08/22/2024 12:55 PM EST Since patient has slightly weakened kidneys, I will replace simvastatin with a atorvastatin 20 mg daily. It is a little safer on the kidneys. [facility]12-06-2024 Telephone encounter Note* Telephone Encounter - [...] Bob LPN August 22, 2024 11:53 AM [facility]12-06-2024 Telephone encounter Note* Telephone Encounter - [...] Bob LPN August 22, 2024 11:52 AM [facility]12-02-2024 Telephone encounter Note* Telephone Encounter - Jaylene Henley LPN - 08/18/2024 1:14 PM EST We did and faxed it back. Will fax again today. [facility]12-02-[facility] Miscellaneous Notes* Telephone Encounter - Jaylene Henley LPN - 08/18/2024 1:14 PM EST We did and faxed it back. Will fax again today. * Telephone Encounter - Kristina Higuera LPN - 08/18/2024 12:55 PM EST Kate with [employer] calls to check on status of order form that was faxed last week for Dexcom G7. Kate is asking if office did not receive order form if office would call back and let them know. Kristina Higuera LPN documented in this encounterLutheran Hospital12-02-2024 Telephone encounter Note * Telephone Encounter - Kristina Higuera LPN - 08/18/2024 12:55 PM EST Kate with [employer] calls to check on status of order form that was faxed last week for Dexcom G7. Kate is asking if office did not receive order form if office would call back and let them know. Kristina Higuera LPN [facility]11-29-2024 Telephone encounter Note* Telephone Encounter - Angelina Bliss RN - 08/15/2024 8:59 AM EST Summer calling with [employer], the company assisting patient with Dexcom G7 CGM. Requesting recent OV note to further proceed with pt's CGM order. Faxed as requested to [phone]. Angelina Bliss RN [facility]11-29-2024 Miscellaneous Notes* Telephone Encounter - Angelina Bliss RN - 08/15/2024 8:59 AM EST Summer calling with [employer], the [employer] assisting patient with Dexcom G7 CGM. Requesting recent OV note to further proceed with pt's CGM order. Faxed as requested to [phone]. Angelina Bliss RN documented in this encounterLutheran Hospital11-27-2024 Evaluation note* Diagnosis Onset Date Resolution [...] fibrillation chron ic September 23, 2024 3:25pm [facility] Work Phone: [phone]) 412-472111-25-2024 Telephone encounter Note* Telephone Encounter - Mathieu Virgen MD - 08/11/2024 1:42 PM EST agree [facility]11-25-2024 Miscellaneous Notes* Telephone Encounter - Mathieu [...] sent to his PCP. documented in this encounterLutheran Hospital11-25-2024 Telephone encounter Note * Telephone Encounter [...] note is being sent to his PCP. [facility]11-19-2024 Telephone encounter Note* Telephone Encounter - Lulu Walls MA - 08/05/2024 5:00 PM EST Order faxed to Gilberto and daughterFarida informed. Lulu Walls MA [facility]11-19-2024 Miscellaneous Notes* Telephone Encounter - Lulu [...] Farida when order has been sent to [employer]. Thank you. documented in this encounterLutheran Hospital11-19-2024 Telephone encounter Note * Telephone Encounter - Mtahieu Virgen MD - 08/05/2024 3:52 PM EST printed [facility]11-19-2024 Telephone encounter Note* Telephone Encounter - [...] Farida when order has been sent to [facility] [place] [facility]. Thank you. [facility]11-19-[facility] Telephone encounter Note* Telephone Encounter - Marilin Stein MA - 08/05/2024 2:53 PM EST Watch for Scooter paperwork for pt from [employer]. Marilin Stein MA [facility]11-19-2024 Miscellaneous Notes* Telephone Encounter - Marilin Stein MA - 08/05/2024 2:53 PM EST Watch for Scooter paperwork for pt from [employer]. Marilin Stein MA documented in this encounterLutheran Hospital11-15-2024 Telephone encounter Note * Telephone Encounter [...] Abdi LPN August 01, 2024 12:54 PM [facility]11-15-2024 Miscellaneous Notes* Telephone Encounter - Cristina [...] 01, 2024 12:54 PM documented in this encounterLutheran Hospital11-15-2024 Telephone encounter Note * Telephone Encounter - Janet King MA - 08/01/2024 11:19 AM EST Daughter, Farida, notified of results. Advised her of provider message to keep eye out for tarry, black stools or bright, red blood. She is agreeable with plan. Patient has follow up scheduled in October. Janet King MA August 01, 2024 11:26 AM [facility]11-15-2024 Miscellaneous Notes* Telephone Encounter - Janet [...] Stop any magnesium supplements. documented in this encounterLutheran Hospital11-14-2024 Telephone encounter Note * Telephone Encounter [...] magnesium is high. Stop any magnesium supplements. [facility]11-12-2024 Instructions* Patient Instructions* Julianna Hood APRN.CNP - 07/29/2024 12:10 PM EST 1) Check labs 2) Start OTC B12 1,000 mcg daily 3) Follow up in 3 months documented in this encounterLutheran Hospital11-12-2024 History of Present illness Narrative* Julianna [...] pressure. No nausea. No constipation. Admitted to [facility] w/ pulmonary edeam, hypoxia Echo showed [...] day. Blood-Glucose Meter,Continuous (FREESTYLE MARIELLE 3 READER) [facility] Use to check blood sugar [...] mouth every 12 hours. Prescribed by outside cartography professor insulin glargine (BASAGLAR KWIKPEN U-100 INSULIN) 100 [...] improvement. Julianna Hood APRN.CNP documented in this encounterLutheran Hospital11-08-2024 [facility]11-08-2024 [facility]10-23-20[facility] Telephone encounter Note* Telephone Encounter - [...] Henley LPN July 09, 2024 10:38 AM [facility] Miscellaneous Notes* Telephone Encounter - Jaylene [...] 09, 2024 10:38 AM documented in this encounterLutheran Hospital10-08-2024 Telephone encounter Note * Telephone Encounter - sOvaldo Regalado RN - 06/24/2024 4:23 PM EDT Daughter returned call and given provider's message below with verbalized understanding. Daughter agreeable. Scheduled lab appt in 1 mth. [facility]10-08[facility] Miscellaneous Notes* Telephone Encounter - Osvaldo [...] D level is very low. Please consider mmwk-idr-afefy vitamin D3-2000 units daily. Your white blood count is improving but now developing some mild anemia. Please recheck CBC in a month again. documented in this encounterLutheran Hospital10-08-2024 Telephone encounter Note * Telephone Encounter - Miley Pemberton MA - 06/24/2024 9:50 AM EDT Tried to reach pt, VM full, unable to leave message or call back number. [employer] message sent to pt, asking them to call back for results. Miley Pemberton MA [facility]10-07-2024 Instructions* Patient Instructions* Abril Duval APRN.CNP - 06/23/2024 3:20 PM EDT Let me know if you would like to schedule a sleep study. We can have it done at [place] or [place]. documented in this encounterLutheran Hospital10-07-2024 History of Present illness Narrative* Abril Duval APRN.CNP - 06/23/2024 2:30 PM EDT Images from the original note were not included. [facility] New Patient Evaluation PATIENT NAME: Faisal Alarcon DATE OF SERVICE: June 22, 2024 CONSULTING PROVIDER: Osvaldo Travis [address] [facility] [address] REASON FOR CONSULT: Osvaldo Travis sends the [...] day. Blood-Glucose Meter,Continuous (FREESTYLE MARIELLE 3 READER) [facility] Use to check blood sugar [...] mouth every 12 hours. Prescribed by outside cartography professor Review of Systems Cardiovascular: Negative for palpitations. [...] untreated CJ including but not limited to [place]/HF/CVA, testing for CJ, treatment with PAP therapy. Not a candidate for OAT since he is edentulous. Briefly discussed hypoglossal nerve stimulation ([employer]). We discussed different mask options for PAP. He will consider a PSG, could schedule at [place] or [place], daughter Farida uses [employer] for him, she will let me know. Abril Duval APRN.CAESAR documented in this encounterLutheran Hospital10-07-2024 Telephone encounter Note * Telephone Encounter - Kennedi Frey LPN - 06/23/2024 2:07 PM EDT Attempted to reach pt by phone without success. Mailbox is full. Try later. Kennedi Frey LPN [facility]10-07-2024 Telephone encounter Note* Telephone Encounter - Kennedi Frey LPN - 06/23/2024 2:07 PM EDT ----- Message from Julianna Hood sent at 06/23/2024 1:51 PM EDT ----- Your vitamin D level is very low. Please consider mgem-afk-fwqou vitamin D3-2000 units daily. Your white blood count is improving but now developing some mild anemia. Please recheck CBC in a month again. [facility]10[facility] History of Present illness Narrative* Mathieu [...] Free style marielle script needs sent through [employer] He is wanting us to send his scooter request to [employer]. They had requested a letter in thepast [...] mouth every 12 hours. Prescribed by outside cartography professor No current facility-administered medications for this visit. [...] NOS Mathieu Virgen MD documented in this encounterLutheran Hospital10-04-2024 Telephone encounter Note * Telephone Encounter - Renetta Gant MA - 06/20/2024 1:34 PM EDT Patient phones requesting refills as follows: Requested Prescriptions Pending Prescriptions Disp Refills ELIQUIS 5 mg tab(s) 60 tablet 1 Sig: Take 1 tablet by mouth two times a day. Please review and advise. Renetta Gant MA [facility]10-04-2024 Miscellaneous Notes* Telephone Encounter - Renetta Gant MA - 06/20/2024 1:34 PM EDT Patient phones requesting refills as follows: Requested Prescriptions Pending Prescriptions Disp Refills ELIQUIS 5 mg tab(s) 60 tablet 1 Sig: Take 1 tablet by mouth two times a day. Please review and advise. Renetta Gant MA documented in this encounterLutheran Hospital10-04-2024 Telephone encounter Note * Telephone Encounter - Jaylene Henley LPN - 06/20/2024 11:23 AM EDT Patient has visit today. Clinical staff can follow up with daughter at visit. [facility]10-04-[facility]24 Miscellaneous Notes* Telephone Encounter - Jaylene [...] to patient's scooter and pt's insurance. Farida [phone]. Thank you. documented in this encounterLutheran Hospital10-02-2024 Telephone encounter Note * Telephone Encounter - Angelina Bliss RN - 06/18/2024 4:28 PM EDT Patient's daughter Farida Beck calling and requesting to speak specifically with PCP nurseJaylene. This is in regard to patient's scooter and pt's insurance. Farida [phone]. Thank you. [facility]10-01-[facility] Telephone encounter Note* Telephone Encounter - Kennedi Frey LPN - 06/17/2024 9:36 AM EDT Received a call from Alison with [facility]. PH: [phone]. She reports receiving information on a scooter. Alison reports this has to go thru pt's [employer] company 1st and they will fax all information with details to [facility] to be done. I called daughter Farida and she reports they are using [employer] fax:[phone] PH: [phone] Spoke with Estela and after they received the fax they will go thru it and send forms to be filled out and once those have been returned they will send to [facility] [employer] . Information fas been faxed. Kennedi Frey LPN [facility]10-01-2024 Miscellaneous Notes* Telephone Encounter - Kennedi Frey LPN - 06/17/2024 9:36 AM EDT Received a call from [facility] with [facility]. PH: [phone]. She reports receiving information on a scooter. Alison reports this has to go thru pt's [employer] company 1st and they will fax all information with details to [facility] to be done. I called daughter Farida and she reports they are using [employer] fax:[phone] PH: [phone] Spoke with Estela and after they received the fax they will go thru it and send forms to be filled out and once those have been returned they will send to [facility] . Information fas been faxed. Kennedi Frey LPN documented in this encounterLutheran Hospital09-30-2024 Telephone encounter Note * Telephone Encounter - Jaylene Henley LPN - 06/16/2024 4:24 PM EDT Will fax letter again as requested. [facility] Miscellaneous Notes* Telephone Encounter - Jaylene Henley LPN - 06/16/2024 4:24 PM EDT Will fax letter again as requested. documented in this encounterLutheran Hospital09-23-2024 Telephone encounter Note * Telephone Encounter [...] Lynn LPN June 09, 2024 8:49 AM [facility]23[facility] Miscellaneous Notes* Telephone Encounter - Julianna [...] 09, 2024 8:49 AM documented in this encounterLutheran Hospital09-14-2024 History of Present illness Narrative* Estela [...] will take him now. documented in this encounterLutheran Hospital09-14-2024 Telephone encounter Note * Telephone Encounter [...] BP, rapid pulse) Protocols used: Dizziness - [id number] [facility]09-14-2024 Miscellaneous Notes* Telephone Encounter - Narda [...] BP, rapid pulse) Protocols used: Dizziness - [id number]-AL documented in this encounterLutheran Hospital08-19-2024 Telephone encounter Note * Telephone Encounter [...] Bob LPN May 05, 2024 5:34 PM [facility]-19[facility]24 Miscellaneous Notes* Telephone Encounter - Christian [...] 05, 2024 5:34 PM documented in this encounterLutheran Hospital07-29-2024 Telephone encounter Note * Telephone Encounter [...] Bob LPN April 14, 2024 11:53 AM [facility]-29-[facility]24 Miscellaneous Notes* Telephone Encounter - Christian [...] 14, 2024 11:53 AM documented in this encounterLutheran Hospital07-26-2024 History of Present illness Narrative* Mariaelena Curry DO - 04/11/2024 5:27 PM EDT Virtualist Progress Note Triage Call I have communicated my name and active licensure. The patient's identity and physical location wereverified at the time of this visit. Either the patient or their legal small business representative has been informed of the risks and benefits of -- and alternatives to -- treatment through a remote evaluation andconsents to proceed with the evaluation remotely. Triage source: Triage Call (Nurse Workday Senior Associate, [facility] - [facility] Triage, [facility] Triage, [facility] Phone Triage) Was patient downgraded (i.e. disposition [...] his daughter is considering taking him to [facility] ER to see if he can [...] in as Primary Virtualist, Secondary Virtualist, or [facility] Telehealth provider: Secondary documented in this encounterLuther[facility] Hospital07-[facility]24 Telephone encounter Note * Telephone Encounter - Randi Turner RN - 04/11/2024 4:49 PM EDT Reason for Call: Patient and daughter calling with concerns of blood in urine Outcome: Recommendation to see HCP or PCP Triage within 4 hours Daughter refused ED. Stated they went to [facility] yesterday and they could not do a Cystoscopy. Has appointment with Urology 04/29. Recommended [facility] ED, daughter wanted to speak to provider Name of Provider contacted for further advice: Dr. Mariaelena Curry Provider's recommendation: PCP office visit Sunday or Sunday, go to ED if worsening symptoms Patient was conferenced to [place] in Appointment Center for Sunday appointment scheduling. [...] today Protocols used: Urine - Blood In-ADULT- [facility] Miscellaneous Notes* Telephone Encounter - Randi Turner RN - 04/11/2024 4:49 PM EDT Reason for Call: Patient and daughter calling with concerns of blood in urine Outcome: Recommendation to see HCP or PCP Triage within 4 hours Daughter refused ED. Stated they went to [facility] yesterday and they could not do a Cystoscopy. Has appointment with Urology 04/29. Recommended [facility] ED, daughter wanted to speak [...] Urine - Blood In-ADULT-AH documented in this encounterLutheran Hospital07-26-2024 Telephone encounter Note * Telephone Encounter [...] Oliva MA April 11, 2024 8:02 AM [facility] Miscellaneous Notes* Telephone Encounter - Najma [...] 11, 2024 8:02 AM documented in this encounterLutheran Hospital07-24-2024 History of Present illness Narrative* [facility] [...] mouth every 12 hours. Prescribed by outside cartography professor colestipol (COLESTID) 1 gram tablet Take 1 [...] of care. This note was generated using [employer] software. It may contain errors in wording, punctuation, or spelling. Andrew Guallpa APRN.MANUFACTURING MAINTENANCE TECHNICIAN documented in this encounterLutheran Hospital07-08-2024 Telephone encounter Note * Telephone Encounter - Mathieu Vrigen MD - 03/24/2024 4:59 PM EDT Reviewed venous insuffiencey and labs. His diltiazem may be contributing. Offered to see him if need be. Discussed compression hose. Keep cool and elevated. Offered vascular eval as well. Daughter's questions answered. [facility] Miscellaneous Notes* Telephone Encounter - Mathieu [...] pt. Marilin Stein MA documented in this encounterLutheran Hospital07-08-2024 Telephone encounter Note * Telephone Encounter - Jaylene Henley LPN - 03/24/2024 4:07 PM EDT This is her response to the message that Prosper sent from his lab results on 02/28/24. [facility] Telephone encounter Note* Telephone Encounter - Marilin Stein MA - 03/22/2024 8:27 AM EDT Please review message regarding pt. Marilin Stein MA [facility]24 Telephone encounter Note* Telephone Encounter - Reanna Brannon RN - 03/21/2024 1:17 PM EDT Patient's daughter notified of results and provider's instructions. Patient daughter verbalizes understanding. Reanna Brannon RN [facility] Miscellaneous Notes* Telephone Encounter - Reanna Brannon RN - 03/21/2024 1:17 PM EDT Patient's daughter notified of results and provider's instructions. Patient daughter verbalizes understanding. Reanna Brannon RN * Telephone Encounter - Osvaldo Regalado RN - 03/21/2024 1:05 PM EDT Left vm on daughters vm to return call to nurse for provider's message, regarding patient's US results. * Telephone Encounter - Osvlado Travis PA-C - 03/21/2024 9:03 AM EDT [...] pumps to reduce swelling. Telephone on 03/21/24 [facility] KNEE HI 30-40WT CONSULT TO LYMPHEDEMA THERAPY Venous incompetence (primary encounter diagnosis) Lymphedema of left leg Varicose veins of both legs with edema Prosper Patel PA-C documented in this encounterLutheran Hospital07-05-2024 Telephone encounter Note * Telephone Encounter - Osvaldo Regalado RN - 03/21/2024 1:05 PM EDT Left vm on daughters vm to return call to nurse for provider's message, regarding patient's US results. [facility] Telephone encounter Note* Telephone Encounter - [...] pumps to reduce swelling. Telephone on 03/21/24 [place] [facility] KNEE HI 30-40WT CONSULT TO LYMPHEDEMA THERAPY Venous incompetence (primary encounter diagnosis) Lymphedema of left leg Varicose veins of both legs with edema Prosper Patel PA-C [facility] Telephone encounter Note* Telephone Encounter - Kennedi Frey LPN - 03/19/2024 9:20 AM EDT Daughter notified with results below and report faxed to [facility]. Kennedi Frey LPN [facility] Miscellaneous Notes* Telephone Encounter - Kennedi Frey LPN - 03/19/2024 9:20 AM EDT Daughter notified with results below and report faxed to [facility]. Kennedi Frey LPN * Telephone Encounter - Osvaldo Regalado RN - 03/19/2024 8:18 AM EDT Phoned patient and given provider's message below. Patient reports he is [place] and asked this nurse to call his [...] up from 13 mmHg. He follows with [facility]: please have him follow up with them in next few months and please have the echo sent there for them to review. Thanks, Prosper Travis PA-C documented in this encounterLutheran Hospital07-03-2024 Telephone encounter Note * Telephone Encounter - Osvaldo Regalado RN - 03/19/2024 8:18 AM EDT Phoned patient and given provider's message below. Patient reports he is [place] and asked this nurse to call his daughter, Farida, to give her the message. Left vm on Farida's vm asking her to return call to triage nurse for provider's message. [facility] Telephone encounter Note* Telephone Encounter - [...] up from 13 mmHg. He follows with [facility]: please have him follow up with them in next few months and please have the echo sent there for them to review. Thanks, Prosper Travis PA-C [facility] Telephone encounter Note* Telephone Encounter - [...] date of : No Nasra Muñiz LPN [facility] Miscellaneous Notes* Telephone Encounter - Nasra [...] No Nasra Muñiz LPN documented in this encounterLutheran Hospital06-13-2024 History of Present illness Narrative* Osvaldo [...] feet walking with dyspnea- not new. Sees [facility], last visit 10/24/2023: Notes identified paroxysmal [...] Lymph 1.00 - 4.00 k/uL 2.31 1.59 [place]% % 11.1 11.1 Abs [place] <0.87 k/uL 1.14 (H) 1.24 (H) Eosin% [...] a day before meals. Getting through [facility] 5 Each 1 dilTIAZem CD (CARDIZEM [...] mouth every 12 hours. Prescribed by outside cartography professor 60 tablet 0 colestipol (COLESTID) 1 gram [...] completed. Osvaldo Travis PA-C documented in this encounterLutheran Hospital05-28-2024 Telephone encounter Note * Telephone Encounter - Janet King MA - 02/12/2024 5:11 PM EDT Patient's daughter was made aware of the results and verbalizes understanding. Janet King Ma [facility] Miscellaneous Notes* Telephone Encounter - Janet [...] days as ordered Protocols used: No Guideline Sboivmfls-XODZD-TV * Telephone Encounter - Angelina Bliss RN [...] advise! Angelina Bliss RN documented in this encounterLutheran Hospital05-28-2024 Telephone encounter Note * Telephone Encounter - Mathieu Virgen MD - 02/12/2024 4:31 PM EDT Check weight daily and call if weight goes up over three lbs in 24 hours. Call if worsening swelling or shortness of breath. His EKG is unchanged. It was read the day he was here when Prosper saw him. [facility] Telephone encounter Note* Telephone Encounter - [...] days as ordered Protocols used: No Guideline Vexmtaxrz-TFSHX-IM [facility]-28-[facility] Telephone encounter Note* Telephone Encounter - [...] to me. Please advise! Angelina Bliss RN [facility]-20-[facility] Instructions* Patient Instructions* Osvaldo Travis PA-C - 02/04/2024 12:49 PM EDT Trial lasix 40mg daily x 5 days Check weight at home prior to starting Recheck weight in 5 days and report to me documented in this encounterLutheran Hospital05-20-2024 History of Present illness Narrative* Brenda [...] PATIENT PRESENTS WITH AN IMPLANTABLE OR ATTACHED RIM TURNING FINISHER: No RADIOLOGY DEPARTMENT: General X-ray: Exam(s) Completed: Chest X-Ray PERIPHERAL IV DATA: Not applicable SIGNED BY: RT Griselda(R) February 04, 2024 12:16 PM documented in this encounterLutheran Hospital05-20-2024 History of Present illness Narrative* Osvaldo [...] feet walking with dyspnea- not new. Sees [facility], last visit 10/24/2023: Notes identified paroxysmal [...] times a day before meals. Getting through [facility] 5 Each 1 dilTIAZem CD (CARDIZEM [...] mouth every 12 hours. Prescribed by outside cartography professor 60 tablet 0 No current facility-administered medications [...] 05/18/2023, NSR 1 degree AVB, LAFB pending cartography professor review. ASSESSMENT/PLAN: 1. SOB (shortness of breath) - ICD9: 786.05, ICD10: R06.02 (primary diagnosis) Suspect r/t body habitus and deconditioning, chronic lung disease In no acute distress. No chest pain or evidence of DVT. EKG stable Due to sudden weight gain will trial lasix 40mg daily x 5 days with weight onb 5th day to be reported through [employer]- daughter will see this gets completed If chest pain, worsening SOB, feeling worse:go to ER Will send note to [facility] for continuity of care. - COMPLETE [...] data. Osvaldo Travis PA-C documented in this encounterLutheran Hospital05-20-2024 Telephone encounter Note * Telephone Encounter [...] disease. 7. : N/A Protocols used: Ankle Vddsjuua-HPDCY-DC, Leg Swelling and Omqjw-XGMVM-QO [facility] Miscellaneous Notes* Telephone Encounter - Osvaldo [...] disease. 7. : N/A Protocols used: Ankle Zazogkst-BPZZS-JY, Leg Swelling and Vhcgz-JIUSS-FY documented in this encounterLutheran Hospital05-03-2024 Telephone encounter Note * Telephone Encounter [...] Please advise. Thank you. Christian Bob LPN. [facility] Miscellaneous Notes* Telephone Encounter - Christian [...] you. Christian Bob LPN. documented in this encounterLutheran Hospital04-24-2024 Miscellaneous Notes* Telephone Encounter - Renetta Gant MA - 01/09/2024 10:36 AM EDT Patient phones requesting refills as follows: Requested Prescriptions Pending Prescriptions Disp Refills ELIQUIS 5 mg tab(s) 60 tablet 1 Sig: Take 1 tablet by mouth two times a day. Please review and advise. Renetta Gant MA documented in this encounterLutheran Hospital04-24-2024 Telephone encounter Note * Telephone Encounter - Renetta Gant MA - 01/09/2024 10:36 AM EDT Patient phones requesting refills as follows: Requested Prescriptions Pending Prescriptions Disp Refills ELIQUIS 5 mg tab(s) 60 tablet 1 Sig: Take 1 tablet by mouth two times a day. Please review and advise. Renetta Gant MA [facility]04-16-[facility]24 Miscellaneous Notes* Telephone Encounter - Mathieu Virgen MD - 01/01/2024 2:13 PM EDT See letter. documented in this encounterLutheran Hospital04-16-2024 Miscellaneous Notes* Telephone Encounter - Mathieu Virgen MD - 01/01/2024 2:12 PM EDT See other note * Telephone Encounter - Osvaldo Regalado RN - 01/01/2024 12:07 PM EDT Daughter, Farida, reports she spoke with [employer] insurance, who informed her pcp would need to write a Prior Auth letter stating condition and diagnoses, and specify patient needs a lite weight, andfax it to [employer] at fax # [phone]. [facility] would then decide if they will cover it. Please phone Farida with any questions. documented in this encounterLutheran Hospital04-15-2024 Miscellaneous Notes* Telephone Encounter - Mathieu Virgen MD - 12/31/2023 9:37 AM EDT Printed. * Telephone Encounter - Jaylene Henley LPN - 12/31/2023 8:46 AM EDT See MyChart message needs it to be for this scooter please. documented in this encounterLutheran Hospital04-09-2024 Miscellaneous Notes* Addendum Note - Mathieu Virgen MD - 12/25/2023 2:15 PM EDTAddended by: MATHIEU VIRGEN on: 12/25/2023 02:15 PM Modules accepted: Orders documented in this encounterLutheran Hospital04-09-2024 History of Present illness Narrative* Mathieu [...] chills. No cough. No dizziness. Latest Ref [facility] 11/28/2023 WBC 3.70 - 11.00 k/uL [...] Abs Lymph 1.00 - 4.00 k/uL 2.31 [place]% % 11.1 Abs [place] <0.87 k/uL 1.14 (H) Eosin% % 3.4 [...] mouth every 12 hours. Prescribed by outside cartography professor No current facility-administered medications for this visit. [...] six months or prn documented in this encounterLutheran Hospital02-29-2024 Miscellaneous Notes* Telephone Encounter - Julianna [...] to file. Please advise documented in this encounterLutheran Hospital02-28-2024 Miscellaneous Notes* Telephone Encounter - Tammy [...] Lisa. Julia Chilel LPN documented in this encounterLutheran Hospital02-28-2024 Miscellaneous Notes* Telephone Encounter - Tammy [...] you. Tammy Davies LPN. documented in this encounterLutheran Hospital02-16-2024 Miscellaneous Notes* Telephone Encounter - Jaylene [...] 12/05/23 Jaylene Henley LPN documented in this encounterLutheran Hospital01-27-2024 Miscellaneous Notes* Telephone Encounter - Miley [...] you. Miley Pemberton Ma. documented in this encounterLutheran Hospital01-06-2024 Discharge summary Author Tre Johnson [facility] September 22, 2023 2:48pm Note Date/Time September 22, 2023 10 :58am [facility] Medical Records Department [address] [place] [address] Emergency Department Summary 09/22/23 MR#: [id number] Acct: [id number] Name: FAISAL ALARCON Rep #:[id number] : 1945 78 From: Tre Johnson DO [...] he ate a big Mac and fries. [facility] Medical History Acute respiratory failure with hypoxia [...] 71.2 H Lymph % (Auto) 14.7 L [place] % (Auto) 9.9 Eos % (Auto) 3.4 [...] 11:54 EST Reading Location ID and State: [address] [place] [address] Tel , Service support , Discharge Plan [...] your Primary Care Provider. Call [facility] ([phone]) or report to the closest Emergency Room. Call 911 if necessary. 09/22/23 1448 <Electronically signed by Tre Johnson DO> Cosigner Signature (if applicable): CC: Dr. Mathieu Virgen MD ~ Signed [facility] Work Phone: [phone] Miscellaneous Notes* Telephone Encounter - Liyah Monroy [...] last month. Protocols used: Cough - Acute Zvxppcvkms-LIQQI-VX documented in this encounterLutheran Hospital12-11-2023 Miscellaneous Notes* Telephone Encounter - Christian Bob - 08/27/2023 7:18 PM EST Patient phones requesting refills as follows: Requested Prescriptions Pending Prescriptions Disp Refills simvastatin (ZOCOR) 40 mg tablet 90 tablet 3 Sig: Take 1 tablet by mouth daily at bedtime. ALFA 07/23/23 NOV 12/05/23 Please review and advise. Christian Bob documented in this encounterLutheran Hospital11-21-2023 Miscellaneous Notes* Telephone Encounter - Lulu Walls - 08/07/2023 2:34 PM EST Forms completed and signed and faxed back to [facility] at [phone]. Patient informed. Lulu Walls * Telephone Encounter - Lulu Walls - 08/07/2023 2:14 PM EST Type of form: Patient Assistance. [facility] [employer] Form received via walk in When form is completed, Fax form to number on form. Form has been forwarded to Physician Desk: Dr. Virgen. Lulu Walls documented in this encounterLutheran Hospital11-06-2023 History of Present illness Narrative* Brenda [...] 23, 2023 2:55 PM documented in this encounterLutheran Hospital11-06-2023 History of Present illness Narrative* Pio [...] mouth every 12 hours. Prescribed by outside cartography professor famotidine (PEPCID) 20 mg tablet Take 1 [...] times daily before meals. Getting through [facility] metFORMIN ER (GLUCOPHAGE XR) 500 mg [...] RIGHT Pio Nicole MD documented in this encounterLutheran Hospital10-27-2023 Miscellaneous Notes* Telephone Encounter - Jaylene Henley LPN - 07/13/2023 4:19 PM EDT Notified that will place in medical records for picking belt operator. Can picking belt operator starting tomorrow 07/14/23. * Telephone Encounter - Mathieu Virgen MD - 07/13/2023 2:10 PM EDT Printed. * Telephone Encounter - Janet King Ma - 07/13/2023 1:49 PM EDT Received notification that patient will be due for re-enrollment for the [facility] patient assistance programs of Humalog and Basaglar starting 09/17/23. Call to daughter and advised her of this. She will start the process and get it to us. She is asking for a handicap placard to be completed for pt. Once done, call her for picking belt operator. Janet King Ma documented in this encounterLutheran Hospital10-03-2023 Miscellaneous Notes* Telephone Encounter - Jackelin [...] you. Jackelin Tinajero RN documented in this encounterLutheran Hospital09-23-2023 History of Present illness Narrative* Pio [...] times daily before meals. Getting through [facility] metFORMIN ER (GLUCOPHAGE XR) 500 mg [...] mouth every 12 hours. Prescribed by outside cartography professor aspirin 81 mg chewable tablet Take 81 [...] FRONTAL/LAT Pio Nicole MD documented in this encounterLutheran Hospital09-23-2023 Miscellaneous Notes* Telephone Encounter - Adele [...] last 30 days. Protocols used: Influenza - Ttraoggj-QOEOD-GP documented in this encounterLutheran Hospital09-21-2023 Miscellaneous Notes* Telephone Encounter - Kennedi [...] you. Kennedi Frey LPN documented in this encounterLutheran Hospital09-20-2023 History of Past illness Narrative* Problem [...] of this encounter (statuses as of 06/06/2023) [facility] of [facility] Narrative* Problem [...] of this encounter (statuses as of 06/08/2023) [facility] of [facility] illness Narrative* Problem [...] of this encounter (statuses as of 06/09/2023) [facility] of Past illness Narrative* Problem [...] of this encounter (statuses as of 06/09/2023) [facility] of Past illness Narrative* Problem [...] of this encounter (statuses as of 06/21/2023) [facility] of Past illness Narrative* Problem [...] of this encounter (statuses as of 07/13/2023) [facility] of [facility] illness Narrative* Problem [...] of this encounter (statuses as of 07/24/2023) [facility] of [facility] Narrative* Problem [...] of this encounter (statuses as of 08/08/2023) [facility] Narrative* Problem [...] of this encounter (statuses as of 08/29/2023) [facility] Narrative* Problem [...] of this encounter (statuses as of 09/07/2023) [facility] Narrative* Problem [...] of this encounter (statuses as of 10/14/2023) [facility] Narrative* Problem [...] of this encounter (statuses as of 11/02/2023) [facility] Narrative* Problem [...] of this encounter (statuses as of 11/15/2023) [facility] Narrative* Problem [...] of this encounter (statuses as of 11/15/2023) [facility] Narrative* Problem [...] of this encounter (statuses as of 12/26/2023) [facility] Narrative* Problem [...] of this encounter (statuses as of 01/01/2024) [facility] Narrative* Problem [...] of this encounter (statuses as of 01/02/2024) [facility] Narrative* Problem [...] of this encounter (statuses as of 01/02/2024) [facility] of Present illness Narrative* Mathieu [...] Abs Lymph 1.00 - 4.00 k/uL 1.48 [place]% % 9.5 Abs [place] <0.87 k/uL 1.16 (H) Eosin% % 1.7 [...] Ketones, Urine Trace, Negative Negative Negative Specific [place], Ur 1.005 - 1.030 1.022 1.022 Hemoglobin/Blood,Ur [...] times daily before meals. Getting through [facility] losartan-hydroCHLOROthiazide (HYZAAR) 100-12.5 mg per tablet [...] mouth every 12 hours. Prescribed by outside cartography professor aspirin 81 mg chewable tablet Take 81 [...] I48.0 - stable. Stay on meds. See [facility] in the winter again. 4. [...] cough. Mathieu Virgen MD documented in this encounterLutheran Hospital09-18-2023 Miscellaneous Notes* Telephone Encounter - Angelina [...] advise. Kristina Higuera LPN documented in this encounterLutheran Hospital09-01-2023 Instructions* Patient Instructions* Osvaldo Travis PA-C - 05/18/2023 4:12 PM EDT Please push fluids with water, non-caffeinated and non-alcoholic beverages, 6-8 glasses today. If you feel weak, faint, or have chest pain, call 911 and have the squad take you to ER. Try to stay cool for the next few days and rest. documented in this encounterLutheran Hospital09-01-2023 History of Present illness Narrative* Osvaldo [...] three times daily before meals. Getting through [facility] 5 Each 1 losartan-hydroCHLOROthiazide (HYZAAR) 100-12.5 [...] mouth every 12 hours. Prescribed by outside cartography professor aspirin 81 mg chewable tablet Take 81 [...] a chair. Negative Romberg. No past-pointing, normal dadx-jw-aqzs. Seems stiff which I think is affecting [...] change from prior EKG 03/01/2023 online under [facility]: I was able to download and [...] there. Osvaldo Travis PA-C documented in this encounterLutheran Hospital08-30-2023 Miscellaneous Notes* Telephone Encounter - Mathieu [...] and advise. Gin Khan documented in this encounterLutheran Hospital08-25-2023 Miscellaneous Notes* Telephone Encounter - Jaylene Henley LPN - 05/11/2023 3:48 PM EDT Forms completed and faxed. * Telephone Encounter - Jaylene Henley LPN - 05/11/2023 3:08 PM EDT Type of form: Prescription Assistance Form received via walk in When form is completed, Fax form to [phone] Form has been forwarded to Physician Desk: Dr. Marilynn Henley LPN documented in this encounterLutheran Hospital08-15-2023 History of Present illness Narrative* Osvaldo Travis PA-C - 05/01/2023 3:24 PM EDT Here to review bleeding area from largest skin tag removal yesterday. No areas bleeding on exam. Instructed if bleeding, hold pressure solidly for 5 minutes and recheck. BP 118/70 Pulse 80 Temp 36.6 C (97.9 F) (Left Tympanic) Resp 20 SpO2 96% Osvaldo Travis PA-C documented in this encounterLutheran Hospital08-14-2023 Instructions* Patient Instructions* Osvaldo Travis PA-C [...] recheck in three weeks. documented in this encounterLutheran Hospital08-14-2023 History of Present illness Narrative* Osvaldo [...] mouth every 12 hours. Prescribed by outside cartography professor aspirin 81 mg chewable tablet Take 81 [...] appointment Osvaldo Travis PA-C documented in this encounterLutheran Hospital07-28-2023 Miscellaneous Notes* Telephone Encounter - Shaye [...] Thank you. MANDI Santos documented in this encounterLutheran Hospital07-06-2023 Miscellaneous Notes* Telephone Encounter - Denisha Shepard APRN.CNP - 03/22/2023 12:48 PM EDT This encounter was opened in error. documented in this encounterLutheran Hospital06-19-2023 Instructions* Patient Instructions* Andrwe Guallpa APRN.CNP - 03/05/2023 3:37 PM EDT [...] more? National [employer] Information [employer] [place], [place] [address] www.digestive.niddk.nih.gov email: References: National Digestive Diseases Information Clearinghouse. Constipation. digestive.niddk.nih.gov Accessed June 21, 2012. [employer]. Understanding Constipation. www.gastro.org. Accessed June 21, 2012. Copyright 2260-3449 [facility]. All rights reserved This information is provided by the [facility] and is not intended to replace the medical advice of your doctor or health care provider. Please consult your health care provider for advice about a specific medical condition. For additional health information, please contact the Center for [employer] Health Information at the [facility] or toll-free extension [phone]. If you prefer, you may visit www.[facility].[email or web address]/health/ or www.[email or web address].[email or web address]. This document was last reviewed on: 2012 index #4059 documented in this encounterLutheran Hospital06-19-2023 History of Present illness Narrative* Andrew [...] mouth every 12 hours. Prescribed by outside cartography professor aspirin 81 mg chewable tablet Take 81 [...] of care. This note was generated using [employer] software. It may contain errors in wording, punctuation, or spelling. Andrew Guallpa APRN.CAESAR documented in this encounterLutheran Hospital06-16-2023 History of Present illness Narrative* Mathieu Virgen MD - 03/02/2023 4:21 PM EDT Patient presents with: ED Follow-up HPI: Patient presents today for office visit for ER follow up. HOSPITAL/ER FOLLOW UP: Reason for visit: 02/26/23 hypoglycemia (40) 03/01/23 abd pain and nausea Which facility: [facility] Diagnosis: mild dehydration, abd pain Testing [...] three times daily before meals. Getting through [employer] ELIQUIS 5 mg tab(s) Take 1 tablet [...] mouth every 12 hours. Prescribed by outside cartography professor aspirin 81 mg chewable tablet Take 81 [...] UROLOGY Mathieu Virgen MD documented in this encounterLutheran Hospital06-15-[address] Taylor [facility] March 01, 2023 10:43pm Note Date/Time March 01, 2023 8:54 pm [facility] Medical Records Department [address] [place] [address] Emergency Department Summary 03/01/23 MR#: [id number] Acct: [id number] Name: FAISAL ALARCON Rep #:[id number] : 1945 77 From: Kodi Taylor MD [...] Nothing specifically makes this better or worse. [facility] Medical History Acute respiratory failure with hypoxia [...] % (Auto) 62.9 Lymph % (Auto) 21.9 [place] % (Auto) 11.2 H Eos % (Auto) [...] Clarity Clear Urine pH 5.0 Ur Specific Weir 1.025 Urine Protein 15 H Urine Glucose [...] problems, contact your Primary Care Provider. Call [facility] ([phone]) or report to the closest Emergency Room. Call 911 if necessary. 03/01/232242 <Electronically signed by Kodi Taylor MD> Cosigner Signature (if applicable): CC: Dr. Mathieu Virgen MD ~ Signed [facility] Work Phone: [phone]) 633-499706-08-2023 Miscellaneous Notes* Telephone Encounter - Tammy Davies [...] daily?If so will need new rx to [facility] pharmacy. Please advise documented in this encounterLutheran Hospital06-02-2023 Miscellaneous Notes* Telephone Encounter - Janet [...] repeated in 10-14 days. documented in this encounterLutheran Hospital06-02-2023 Instructions* Patient Instructions* Denisha Shepard APRN.CNP - 02/16/2023 3:08 PM EDT Lurdes wrap. Rest Ice Prop the foot. Tylenol as needed. documented in this encounterLutheran Hospital06-02-2023 History of Present illness Narrative* Denisha [...] mouth every 12 hours. Prescribed by outside cartography professor aspirin 81 mg chewable tablet Take 81 [...] agrees with the plan. documented in this encounterLutheran Hospital05-31-2023 Nurse Note* Michelle Jara RN - [...] well. Michelle Jara RN documented in this encounterLutheran Hospital05-05-2023 History of Present illness Narrative* Mathieu [...] mouth every 12 hours. Prescribed by outside cartography professor aspirin 81 mg chewable tablet Take 81 [...] SURGERY Mathieu Virgen MD documented in this encounterLutheran Hospital03-15-2023 History of Present illness Narrative* Mathieu Virgen MD - 11/29/2022 9:33 AM EDT Patient presents with: Transition Of Care HPI: Patient presents today for office visit for hospital follow up. Seen in [facility] on 11/21/22. Discharged 11/21/22 Chest pain. [...] note: TRANSITION CARE MANAGEMENT (TCM) INITIAL CONTACT Pocket [employer] Outreach Provider Action/FYI: -pt admitted to [facility] on 11/21/22 for 24hr observation d/t [...] Abs Lymph 1.00 - 4.00 k/uL 1.95 [place]% % 9.8 Abs [place] <0.87 k/uL 1.09 (H) Eosin% % 4.1 [...] mouth every 12 hours. Prescribed by outside cartography professor aspirin 81 mg chewable tablet Take 81 [...] stable. Mathieu Virgen MD documented in this encounterLutheran Hospital03-13-2023 Miscellaneous Notes* Telephone Encounter - Sheila [...] as the lab orders are in. PH> [phone]. Kennedi Frey LPN * Telephone Encounter - [...] Thank you, Michaelle HERBERT documented in this encounterLutheran Hospital03-08-2023 History of Present illness Narrative* Christian Bob LPN - 11/22/2022 9:23 AM EST TRANSITION CARE MANAGEMENT (TCM) INITIAL CONTACT Pocket As[employer]er Outreach Provider Action/FYI: -pt admitted to [facility] on 11/21/22 for 24hr observation d/t [...] flowsheet data found. SUMMARY: -Pt discharged from [facility] on 11/21/22. -Admitted for: Chest Pain Do you have a hospital follow up appointment with your PCP? Appointment on 11/[address] Virgen. Yes. Remind patient of appointment date, time, and location. If not within 14 calendar days of discharge - please reschedule accordingly. Medical records from recent hospitalization: Epic Placed in provider mailbox for further review. documented in this encounterLutheran Hospital03-07-2023 History and physical note Author Dr. Stevenson [facility] November 21, 2022 7:08am Note Date/Time November 21, 2022 6:46 am [facility] Medical Records Department [address] [place] [address] History & Physical Exam 11/21/22 0644 MR#: [id number] Acct: [id number] Name: FAISAL ALARCON Rep #:[id number] : 1945 77 From: Mariza Stevenson MD PCP: Dr. Mathieu Virgen MD Status:ADM I NO Location: [place] [address] HPI - General General Date of Admission: 11/21/22 Date of Service: 11/21/22 Chief Complaint: Chest pain. HPI Narrative The patient is a 77 y/o M w/ PMHx: PAF, BPH, HTN, HLD, IDDM, Nonobstructive CAD,Morbid obesity, Former tobacco use who presents to the [facility] ED on 11/21/22 initially earlier in [...] included CBC with WC 12.1 coming 114.7, [id number] with left shift, BMP with sodium 134, [...] similar. In the ED patient administered NG. [facility] Medical History Acute respiratory failure with [...] Former tobacco use who presents to the [facility] ED on 11/21/22 initially earlier in [...] 55 minutes. Charges/Coding Visit Charges Inpatient E&M: 71435 Init Hosp L2 Procedures Hospitalists Procedures: 00909 Advncd Care Plan 30 Min 11/21/22 0708 <Electronically signed by Mariza Stevenson MD> Cosigner Signature (if applicable): CC: Dr. Mariza Stevenson MD; Dr. Mathieu Virgen MD~ Signed [facility] Work Phone: 1(828) 331-177502-25-2023 Miscellaneous Notes* Telephone Encounter - Christian Bob LPN - 11/11/2022 10:44 AM EST Patient phones requesting refills as follows: Requested Prescriptions Pending Prescriptions Disp Refills losartan-hydroCHLOROthiazide (HYZAAR) 100-12.5 mg per tablet 90 tablet 1 Sig: Take 1 tablet by mouth once daily. Please review and advise. Christian Bob LPN documented in this encounterLutheran Hospital02-24-2023 Miscellaneous Notes* Telephone Encounter - Gin Herbert - 11/10/2022 11:30 AM EST Pharmacy verified in [facility] Patient has been identified by name [...] advise. Gin Longoria Pss documented in this encounterLutheran Hospital02-09-2023 Miscellaneous Notes* Telephone Encounter - Kaitlyn [...] new refill. Daughter expressed understanding. Rhiannon RicksD, [facility] Primary Care Clinical Pharmacist documented in this encounterLutheran Hospital01-30-2023 Miscellaneous Notes* Addendum Note - Kaitlyn Hernández RPh - 10/16/2022 12:50 PM ESTAddended by: KAITLYN HERNÁNDEZ on: 10/16/2022 12:50 PM Modules accepted: Orders * Telephone Encounter - Kaitlyn Hernández RPh - 10/16/2022 12:46 PM EST Daughter returned call, [facility] insurance needs a PA for Basaglar ([employer] reviewed formulary online and Basaglar is not a preferred insulin - Lantus, Toujeo, and Tresiba are). Patient used to be on Lantus. Discussed with daughter - will order Lantus to see what copay is. If affordable, she will picking belt operator supply. If not affordable, she will let [...] Will await daughter's call. Kaitlyn Hernández PharmD, [facility] Primary Care Clinical Pharmacist * Telephone Encounter - Kaitlyn Hernández RPh - 10/16/2022 12:24 PM EST Patient's daughter, Farida, called [employer] and LMOM stating patient will be running out of insulin tomorrow, needs another free trial card. Patient has application in for [employer] PAP. She called [employer] this AM, states they still have not [...] of insulin. [employer] advised daughter to contact [employer] and ask them to process the Basaglar [...] to keep me informed. Kaitlyn Hernández PharmD, [facility] Primary Care Clinical Pharmacist documented in this encounterLutheran Hospital01-18-2023 Miscellaneous Notes* Telephone Encounter - Christian Bob LPN - 10/04/2022 9:32 AM EST Patient phones requesting refills as follows: Requested Prescriptions Pending Prescriptions Disp Refills metFORMIN ER (GLUCOPHAGE XR) 500 mg 24 hr tablet 360 tablet 3 Sig: Take 2 tablets by mouth twice daily before meals. ALFA 05/31/22 11/29/22 Please review and advise. Christian Bob LPN documented in this encounterLutheran Hospital01-18-2023 Miscellaneous Notes* Telephone Encounter - Christian Bob LPN - 10/04/2022 9:31 AM EST Patient phones requesting refills as follows: Requested Prescriptions Pending Prescriptions Disp Refills carvedilol (COREG) 25 mg tablet 180 tablet 1 Sig: Take 1 tablet by mouth twice daily. ALFA 05/31/22 11/29/22 Please review and advise. Christian Bob LPN documented in this encounterLutheran Hospital01-13-2023 Miscellaneous Notes* Telephone Encounter - Kaitlyn Hernández RPh - 09/29/2022 9:18 AM EST Patient's daughter, Farida, called PharmD and LMOM stating the [employer] application for insulins was submitted this week [...] spoke with patient's daughter. Sent her a [employer] message with a Basaglar Free Trial Offer. [...] User: KAITLYN HERNÁNDEZ RP documented in this encounterLutheran Hospital01-10-2023 Miscellaneous Notes* Telephone Encounter - Janet King Ma - 09/26/2022 9:51 AM EST Talked to daughter and advised of time and fax number. Janet King Ma * Telephone Encounter - Jaylene Henley LPN - 09/25/2022 8:01 PM EST Sent from [phone] at 8:00pm. (If no error report in [...] to daughter so she can have [facility] shipped for this week. * [...] of medications assistance forms for insulins through [employer]. Asking if these were received and fill out? Please fax this [phone]. Please contact Farida back either way. If provider does not have form Farida can come by and drop of other form. Please review and advise, Reanna Brannon RN documented in this encounterLutheran Hospital12-05-2022 Miscellaneous Notes* Telephone Encounter - Alejandrina [...] notify patient. Alejandrina Herbert documented in this encounterLutheran Hospital11-21-2022 Miscellaneous Notes* Telephone Encounter - Reanna [...] tetanus booster? Unsure Protocols used: Skin Foreign [id number] documented in this encounterLutheran Hospital10-06-2022 Miscellaneous Notes* Telephone Encounter - Kaitlyn Hernández RPh - 06/22/2022 11:52 AM EDT [employer] sent request to PAP technicians to assist with [employer] application for Jardiance 10mg daily. Kaitlyn Hernández PharmD, [facility] Primary Care Clinical Pharmacist documented in this encounterLutheran Hospital10-06-2022 History of Present illness Narrative* Kaitlyn [...] adverse effects DIET/EXERCISE/SOCIAL Hx: Has been eating [employer] food a lot this summer; went to [place] [employer] daily; goes several times per week Fried veggies, sandwiches Breakfast: couple of eggs, 4 pieces muñoz; occasionally will have waffle Lunch: yesterday had small serving mashed potatoes, baked beans, and steak Dinner: usually the same as lunch; occasionally will have salad No exercise MEDICATIONS: Pill bottles are not present Adherence: denies missed doses Pharmacy: [facility] in [place] Rx coverage: [employer] Affordability: Gets Eliquis, Humalog, [...] mouth every 12 hours. Prescribed by outside cartography professor insulin glargine (LANTUS SOLOSTAR U-100 INSULIN) 100 [...] TG 130 08/16/2021 The ASCVD Risk score ([place] DK, et al., 2019) failed to calculate [...] time was 35 minutes. documented in this encounterLutheran Hospital10-06-2022 Instructions* Patient Instructions* Kaitlyn Hernández RPh - 06/22/2022 11:00 AM EDT START Jardiance 10mg daily. If it is too expensive, let me know. Start to work on your diet. We want all blood sugars to be less than 200 mg/dL. documented in this encounterLutheran Hospital09-14-2022 History of Present illness Narrative* Mathieu [...] Abs Lymph 1.00 - 4.00 k/uL 1.67 [place]% % 11.8 Abs [place] <0.87 k/uL 1.20 (H) Eosin% % 3.3 [...] mouth every 12 hours. Prescribed by outside cartography professor simvastatin (ZOCOR) 40 mg tablet Take 1 [...] RTO in six month documented in this encounterLutheran Hospital08-22-2022 Miscellaneous Notes* Telephone Encounter - Christian Bob LPN - 05/08/2022 5:59 PM EDT Patient phones requesting refills as follows: Requested Prescriptions Pending Prescriptions Disp Refills losartan-hydroCHLOROthiazide (HYZAAR) 100-12.5 mg per tablet 90 tablet 1 Sig: Take 1 tablet by mouth once daily. ALFA 03/03/22 NOV 05/31/22 Please review and advise. Christian Bob LPN documented in this encounterLutheran Hospital07-23-2022 History of Present illness Narrative* [place] Guallpa APRN.MANUFACTURING MAINTENANCE TECHNICIAN - 04/08/2022 2:52 PM EDT Subjective HPI [...] mouth every 12 hours. Prescribed by outside cartography professor simvastatin (ZOCOR) 40 mg tablet Take 1 [...] care. [place] Guallpa APRN.CAESAR documented in this encounterLutheran Hospital07-07-2022 Miscellaneous Notes* Telephone Encounter - Kaitlyn Hernández RPh - 03/23/2022 1:22 PM EDT Lisy completed Rx section of [employer] application for Basaglar (to replace Lantus). Full application not required since patient already enrolled and receiving free Humalog. Rx placed on PCP's desk for signature. Kaitlyn Hernández PharmD, [facility] Primary Care Clinical Pharmacist Lisa Souza [facility] documented in this encounterLutheran Hospital07-07-2022 History of Present illness Narrative* Kaitlyn [...] not present Adherence: denies missed doses Pharmacy: [facility] Rx coverage: [employer] Affordability: Gets Eliquis, Humalog, and [employer]i through [employer] Diabetes supplies: [employer] System: daughter sets up pill box, [...] mouth every 12 hours. Prescribed by outside cartography professor insulin glargine (LANTUS SOLOSTAR U-100 INSULIN) 100 [...] TG 130 08/16/2021 The ASCVD Risk score (Milmineboaz PÉREZ Jr., et al., 2013) failed to calculate for the following reasons: The valid total cholesterol range is 130 to 320 mg/dL Albumin/Creat Ratio (mg/g) Date Value 08/16/2021 231 (H) PHARMACOTHERAPY ASSESSMENT/PLAN: 1. Type 2 diabetes mellitus without complication, with long-term current use of insulin ([facility]) - ICD9: 250.00, V58.67, ICD10: E11.9, [...] Basaglar so he can get it through [employer] to replace Lantus Applauded on reducing portion [...] verbalized understanding of instructions. Kaitlyn Hernández PharmD, [facility] Primary Care Clinical Pharmacist Lisa Souza [facility] The majority of the pharmacy visit (> 50%) was spent counseling and/or coordinating care for thepatient. interaction: face to face time was 35 minutes. documented in this encounterLutheran Hospital07-07-2022 Instructions* Patient Instructions* Kaitlyn Hernández RPh [...] accurate than wrist cuffs. documented in this encounterLutheran Hospital06-20-2022 Miscellaneous Notes* Telephone Encounter - Mathieu [...] and resend to the [facility]. Daughter, Farida, can be reached at [phone] documented in this encounterLutheran Hospital06-20-2022 Miscellaneous Notes* Telephone Encounter - Jaylene [...] 03/06/22 Jaylene Henley LPN documented in this encounterLutheran Hospital06-17-2022 History of Present illness Narrative* Mathieu [...] mouth every 12 hours. Prescribed by outside cartography professor Losartan-hydroCHLOROthiazide 100-12.5 mg per tablet Take 1 [...] three months and prn. documented in this encounterLutheran Hospital05-26-2022 Miscellaneous Notes* Telephone Encounter - Jaylene Henley LPN - 02/09/2022 11:36 AM EDT [facility] [address] Chart Copy of medications dispensed to patient for home use February 09, 2022 Physician Initial: MIRANDA Alarcon Medication: Lantus Qty: 5 boxes Directions: Inject 90 units daily. Medications administered, dispensed and verified on the date indicated above Patient has been notified to picking belt operator medication in Dr. Virgen's office. Jaylene Henley LPN documented in this encounterLutheran Hospital05-24-2022 Miscellaneous Notes* Telephone Encounter - Kaitlyn Hernández RPh - 02/07/2022 10:17 AM EDT PharmD called daughter. She said they were able to get Lantus yesterday, got full box of Lantus for$35 (insurance covered it). [employer] spoke with daughter, will plan to apply for [employer] PAP [facility] in March at next PharmD appt so patient doesn't have this issue again with [employer]. Kaitlyn Hernández PharmD, [facility] Primary Care Clinical Pharmacist [facility] * Telephone Encounter - Kaitlyn Hernández [...] me updated on status. Kaitlyn Hernández PharmD, [facility] Primary Care Clinical Pharmacist Lisa Souza [facility] * Telephone Encounter - Kaitlyn Hernández RPh [...] pharmacy). Patient has issues getting Lantus through [employer]. She has no issues getting Humalog through [employer]. Briefly discussed possibly switching patient from Lantus to Basaglar later this summer so no longer has issues with insulin supply. Daughter thought this would be a good idea so will do paperwork later this summer. PharmD will await daughter's call. Kaitlyn Hernández PharmD, [facility] Primary Care Clinical Pharmacist Lisa Souza [facility] * Telephone Encounter - Jaylene Henley LPN [...] patient insurance. Family could checkwith [employer]([phone]) for short term cost assistance. Negrita will also send note to Diana as Sw noted that patient follows with Kaitlyn in regards to hisdiabetes care and see if she has any short term assistance ideas. * Telephone Encounter - Jaylene Henley LPN - 02/06/2022 10:02 AM EDT Patient daughter states that [employer] sends refill form to our office 1 [...] Virgen MD] Preferred pharmacy: [facility] [place] [address] - [phone] - [phone] Delivery method: MailD Daughter says patient will be out of the medication tonight. The shipment for this medication does not go out until today so she is asking for a pen that he could have. Please return call to daughter, [phone] documented in this encounterLutheran Hospital05-20-2022 Instructions* Patient Instructions* Papito Castano V, DO - 02/03/2022 2:02 PM EDT Thank you for choosing the [facility] for your acute care needs. [...] physician or booking an appointment, please call [phone] or speak with any Patient Parachute/Combatant Diver Officer. Hours: Sunday through Sunday 7:30 am to 7:00 pm. Sunday and Sunday: 8:00 am to 2:30 pm. documented in this encounterLutheran Hospital05-20-2022 History of Present illness Narrative* Papito [...] calf and leg. He was [facility] in [facility] hastried elevation, compression wrapping. PAST MEDICAL HISTORY [...] mouth every 12 hours. Prescribed by outside cartography professor Losartan-hydroCHLOROthiazide 100-12.5 mg per tablet Take 1 [...] Continuous Intervention/Comfort measure: Medication documented in this encounterLutheran Hospital05-18-2022 Miscellaneous Notes* Telephone Encounter - Tammy Davies LPN - 02/01/2022 10:28 AM EDT Patient daughter Farida calling asking for refill on father Lantus insulin 90 day supply from Patient assistance with [employer]. Yesterday request was not sent correctly. She said gets faxed to [employer]. The Insulin gets mailed to his home. She did not have the fax number, she gave me phone number for [employer] [phone]. Father has 4 days Lantus left. Please advise documented in this encounterLutheran Hospital05-17-2022 Miscellaneous Notes* Telephone Encounter - Janet [...] patient. Radha Frey Pss documented in this encounterLutheran Hospital05-13-2022 History of Present illness Narrative* Saad Park APRN.MANUFACTURING MAINTENANCE TECHNICIAN - 01/27/2022 3:27 PM EDT Images from the original note were not included. Subjective HPI HPI Faisal Alarcon is a 76 year old male who presents today for CC of sudden right calf pain while getting onto manhole stripper. This started today. Has tried nothing for relief. Symptoms are worsened by walking. Denies numbness/tingling of right lower extremity. .Patient presents with: right calf pain: x 2 hours-pulled something getting on manhole stripper PAST MEDICAL HISTORY Diagnosis Date DIABETES MELLITUS [...] mouth every 12 hours. Prescribed by outside cartography professor insulin glargine (LANTUS SOLOSTAR U-100 INSULIN) 100 [...] plan Saad Park APRN.CAESAR documented in this encounterLutheran Hospital04-28-2022 Miscellaneous Notes* Telephone Encounter - Kaitlyn Hernández RPh - 01/12/2022 3:09 PM EDT During PharmD visit for DM today, patient's daughter reported patient needs a refill of colestipol.Refill order pended for PCP signature if appropriate. Pending Prescriptions Disp Refills COLESTIPOL 1 GRAM TABLET 60 tablet 5 Sig: Take 1 tablet by mouth twice daily. JANET: No Kaitlyn Hernández RPh documented in this encounterLutheran Hospital04-28-2022 History of Present illness Narrative* Kaitlyn [...] mouth every 12 hours. Prescribed by outside cartography professor flecainide (TAMBOCOR) 150 mg tablet Take 150 [...] [facility] Primary Care Clinical Pharmacist Lisa Souza [facility] The majority of the pharmacy visit (> 50%) was spent counseling and/or coordinating care for thepatient. interaction: face to face time was 35 minutes. documented in this encounterCleveland [id number] Instructions* Patient Instructions* Kaitlyn Hernández RPh - [...] butter DRINK MORE WATER documented in this encounterLutheran Hospital04-18-2022 Miscellaneous Notes* Telephone Encounter - Kaitlyn Hernández RPh - 01/02/2022 2:42 PM EDT [employer] called [employer] ([phone]) and spoke with a helpful small business representative. She stated patient is due to have a shipment tomorrow. Electronic Scale Subassembler changed the delivery information so this shipment will be shipped to patient's home. PharmD called patient's daughter, Farida, and informed of the above information. Kaitlyn Hernández PharmD, [facility] Primary Care Clinical Pharmacist Lisa Souza [facility] * Telephone Encounter - Denisha Shepard APRN.CNP - 12/30/2021 5:51 PM EDT Is this something that can be done, or does it need to come here? * Telephone Encounter - Nisha Wilson - 12/30/2021 12:05 PM EDT Patient's daughter calling regarding patient's request for medicationi nsulin lispro (HUMALOG KWIKPEN INSULIN) 100 unit/mL . Daughter, Farida says the medication is shipped by [facility] [place], . Medication is being sent to [facility] instead of patient's home. Daughter is asking for this to be changed to being delivered to patient's home. Please return call to Farida ([phone]) when corrected. [facility]22 Miscellaneous Notes* Telephone Encounter - Leslie [...] notify patient. Leslie Herbert documented in this encounterL[facility]04[facility]14-[facility]22 Miscellaneous Notes* Telephone Encounter - Janet [...] corrected script for Humalog is sent to [facility]. The last script sent was for 16 units and not 26 units. He is going to run out of insulin Please advise insulin lispro (HUMALOG KWIKPEN INSULIN) 100 unit/mL 5 Pen 1 11/03/2021 Sig: Inject 26 Units subcutaneously three times daily before meals. Class: Med Update Route: SUBCUTANEOUS documented in this encounterLutheran Hospital03-31-2022 Miscellaneous Notes* Telephone Encounter - Janet [...] from 12/15 for details). Kaitlyn Hernández PharmD, [facility] Primary Care Clinical Pharmacist Lisa Souza [facility] documented in this encounterLuther[facility] Hospital10-27-2021 History of Present illness Narrative* Malik [...] 13, 2021 10:08 AM documented in this encounterLuther[facility] Hospital09-08-2021 History of Present illness Narrative* Brenda [...] 25, 2021 2:53 PM documented in this encounterLutheran Hospital05-17-2021 History of Past illness Narrative* Problem Noted Date Resolved Date SOB (shortness of breath) 01/31/20212020 Abnormal EKG 01/31/2021 05/06/2021 Sciatica 06/15/2005 05/06/2021 Paranoid schizophrenia, subc hronic condition with acute exacerbation 05/11/2005 04/23/2017 documented as of this encounter (statuses as of 12/12/2021) [facility] of Past illness Narrative* Problem Noted Date Resolved Date SOB (shortness of breath) 01/31/20212020 Abnormal EKG 01/31/2021 05/06/2021 Sciatica 06/15/2005 05/06/2021 Paranoid schizophrenia, subc hronic condition with acute exacerbation 05/11/2005 04/23/2017 documented as of this encounter (statuses as of 12/15/2021) [facility] Narrative* Problem Noted Date Resolved Date SOB (shortness of breath) 01/31/20212020 Abnormal EKG 01/31/2021 05/06/2021 Sciatica 06/15/2005 05/06/2021 Paranoid schizophrenia, subc hronic condition with acute exacerbation 05/11/2005 04/23/2017 documented as of this encounter (statuses as of 12/29/2021) [facility] Narrative* Problem Noted Date Resolved Date SOB (shortness of breath) 01/31/20212020 Abnormal EKG 01/31/2021 05/06/2021 Sciatica 06/15/2005 05/06/2021 Paranoid schizophrenia, subc hronic condition with acute exacerbation 05/11/2005 04/23/2017 documented as of this encounter (statuses as of 01/02/2022) [address]17-2021 History of Past illness Narrative* Problem Noted Date Resolved Date SOB (shortness of breath) 01/31/20212020 Abnormal EKG 01/31/2021 05/06/2021 Sciatica 06/15/2005 05/06/2021 Paranoid schizophrenia, subc hronic condition with acute exacerbation 05/11/2005 04/23/2017 documented as of this encounter (statuses as of 01/12/2022) [place] [address]21 History of Past illness Narrative* Problem Noted Date Resolved Date SOB (shortness of breath) 01/31/20212020 Abnormal EKG 01/31/2021 05/06/2021 Sciatica 06/15/2005 05/06/2021 Paranoid schizophrenia, subc hronic condition with acute exacerbation 05/11/2005 04/23/2017 documented as of this encounter (statuses as of 01/12/2022) [facility] Narrative* Problem Noted Date Resolved Date SOB (shortness of breath) 01/31/20212020 Abnormal EKG 01/31/2021 05/06/2021 Sciatica 06/15/2005 05/06/2021 Paranoid schizophrenia, subc hronic condition with acute exacerbation 05/11/2005 04/23/2017 documented as of this encounter (statuses as of 01/27/2022) [facility] Narr[facility]* Problem Noted Date Resolved Date SOB (shortness of breath) 01/31/20212020 Abnormal EKG 01/31/2021 05/06/2021 Sciatica 06/15/2005 05/06/2021 Paranoid schizophrenia, subc hronic condition with acute exacerbation 05/11/2005 04/23/2017 documented as of this encounter (statuses as of 01/31/2022) [facility] Narr[facility]* Problem Noted Date Resolved Date SOB (shortness of breath) 01/31/20212020 Abnormal EKG 01/31/2021 05/06/2021 Sciatica 06/15/2005 05/06/2021 Paranoid schizophrenia, subc hronic condition with acute exacerbation 05/11/2005 04/23/2017 documented as of this encounter (statuses as of 02/01/2022) [facility]* Problem Noted Date Resolved Date SOB (shortness of breath) 01/31/20212020 Abnormal EKG 01/31/2021 05/06/2021 Sciatica 06/15/2005 05/06/2021 Paranoid schizophrenia, subc hronic condition with acute exacerbation 05/11/2005 04/23/2017 documented as of this encounter (statuses as of 02/02/2022) [facility]* Problem Noted Date Resolved Date SOB (shortness of breath) 01/31/20212020 Abnormal EKG 01/31/2021 05/06/2021 Sciatica 06/15/2005 05/06/2021 Paranoid schizophrenia, subc hronic condition with acute exacerbation 05/11/2005 04/23/2017 documented as of this encounter (statuses as of 02/03/2022) [facility]* Problem Noted Date Resolved Date SOB (shortness of breath) 01/31/20212020 Abnormal EKG 01/31/2021 05/06/2021 Sciatica 06/15/2005 05/06/2021 Paranoid schizophrenia, subc hronic condition with acute exacerbation 05/11/2005 04/23/2017 documented as of this encounter (statuses as of 02/07/2022) [facility]* Problem Noted Date Resolved Date SOB (shortness of breath) 01/31/20212020 Abnormal EKG 01/31/2021 05/06/2021 Sciatica 06/15/2005 05/06/2021 Paranoid schizophrenia, subc hronic condition with acute exacerbation 05/11/2005 04/23/2017 documented as of this encounter (statuses as of 02/09/2022) [facility]* Problem [...] of this encounter (statuses as of 03/03/2022) [facility]* Problem [...] of this encounter (statuses as of 03/06/2022) [facility]* Problem [...] of this encounter (statuses as of 03/06/2022) [facility]* Problem [...] of this encounter (statuses as of 03/23/2022) [facility]* Problem [...] of this encounter (statuses as of 03/23/2022) [facility]* Problem [...] of this encounter (statuses as of 04/08/2022) [facility]* Problem [...] of this encounter (statuses as of 05/08/2022) [facility] Problem [...] of this encounter (statuses as of 05/31/2022) [facility] Problem [...] of this encounter (statuses as of 06/22/2022) [facility] Problem [...] of this encounter (statuses as of 06/22/2022) [facility] Problem [...] of this encounter (statuses as of 08/14/2022) [facility] Problem [...] of this encounter (statuses as of 08/21/2022) [facility] Problem [...] of this encounter (statuses as of 09/26/2022) [facility] Problem [...] of this encounter (statuses as of 09/29/2022) [facility] Problem [...] of this encounter (statuses as of 10/04/2022) [facility] Problem [...] of this encounter (statuses as of 10/04/2022) [facility] Problem [...] of this encounter (statuses as of 10/16/2022) [facility] Problem [...] of this encounter (statuses as of 10/16/2022) [facility] Problem [...] of this encounter (statuses as of 10/26/2022) [facility] Problem [...] of this encounter (statuses as of 11/10/2022) [facility] Problem [...] of this encounter (statuses as of 11/13/2022) [facility] Problem [...] of this encounter (statuses as of 11/22/2022) [facility] Problem [...] of this encounter (statuses as of 11/27/2022) [facility] Problem [...] of this encounter (statuses as of 11/29/2022) [facility] Problem [...] of this encounter (statuses as of 01/19/2023) [facility] Problem [...] of this encounter (statuses as of 02/14/2023) [facility] Problem [...] of this encounter (statuses as of 02/16/2023) [facility] Problem [...] of this encounter (statuses as of 02/17/2023) [facility] Problem [...] of this encounter (statuses as of 02/22/2023) [facility] Problem [...] of this encounter (statuses as of 03/03/2023) [facility] Problem [...] of this encounter (statuses as of 03/06/2023) [facility] Problem [...] of this encounter (statuses as of 03/20/2023) [facility] Problem [...] of this encounter (statuses as of 03/22/2023) [facility] Problem [...] of this encounter (statuses as of 04/13/2023) [facility] Problem [...] of this encounter (statuses as of 04/26/2023) [facility] Problem [...] of this encounter (statuses as of 05/01/2023) [facility] Problem [...] of this encounter (statuses as of 05/02/2023) [facility] Problem [...] of this encounter (statuses as of 05/12/2023) [facility] Problem [...] of this encounter (statuses as of 05/17/2023) [facility] Problem [...] of this encounter (statuses as of 05/19/2023) [facility] Problem [...] of this encounter (statuses as of 06/04/2023) [facility] Narrative* Malik [...] 24, 2021 2:41 PM documented in this encounterLutheran HospitalDischarge summary Author Dr. Yandy Gonzalez [facility] November 21, 2022 4:33pm Note Date/Time November 21, 2022 4:26 pm [facility] Medical Records Department [address] [place] [address] Discharge Summary 11/21/22 1625 MR#: [id number] Acct: [id number] Name: FAISAL ALARCON Rep #:[id number] : 1945 77 From: Narda Kebede MD PCP: Dr. Mathieu Virgen MD Status:ADM I NO Location: [place] [address] Providers Date of Admission: 11/21/22 Date of [...] patient was placed on a monitored bed [place] was ruled out with serial cardiac enzymes [...] Self Care Charges/Coding Visit Charges Inpatient E&M: 90791 Disch Hosp >30min 11/21/22 1633 <Electronically signed by Narda Kebede MD> Cosigner Signature (if applicable): CC: Dr. Narda Kebede MD; Dr. Mathieu Virgen MD~ Signed [facility] Work Phone: Evaluation note* Diagnosis Type 2 diabetes mellitus without complication, with long-term current use of insulin (HCC) documented in this encounter [facility] note* Diagnosis Type 2 diabetes mellitus without complication, with long-term current use of insulin (HCC) documented in this encounter [facility] note* Diagnosis Type 2 diabetes mellitus without complication, with long-term current use of insulin ([facility]) documented in this encounter [facility] note* Diagnosis Type 2 diabetes mellitus without complication, with long-term current use of insulin (HCC)- Primary documented in this encounter [facility] note* Diagnosis Diarrhea, unspecified type documented in this encounter [facility] note* Diagnosis Strain of calf muscle, right, initial encounter- Primary [facility] Diagnosis Type 2 diabetes mellitus without complication, with long-term current use of insulin (HCC) [facility] encounter [facility]* Diagnosis Gastrocnemius tear, right, initial encounter- Primary [facility]* Diagnosis Type 2 diabetes mellitus without complication, with long-term current use of insulin (HCC) [facility]* Diagnosis Onset Date Resolution Status Dyspnea on minimal exertion acute Paroxysmal atrial fibrillation acute Essential (primary) hypertension chronic Hyperlipidemia chronic Morbid obesity acute SOB (shortness of breath) [facility] [place] Morbid obesity acute SOB (shortness of breath) [facility] [place] Essential (primary) hypertension chronic Dyspnea on minimal exertion acute Paroxysmal atrial fibrillation acute Essential (primary) hypertension chronic Hyperlipidemia [facility] Work Phone: Evaluation note* Diagnosis Essential hypertension- Primary Unspecified essential hypertension Pure hypercholesterolemia Paroxysmal atrial fibrillation (HCC) Atrial fibrillation Type 2 diabetes mellitus with microalbuminuria, with long-term current use of insulin (HCC) Chronic anticoagulation Long-term (current) use of anticoagulants Need for hepatitis C screening test Special screening examination for other specified viral diseases [facility] encounter [facility]* Diagnosis Diarrhea, unspecified type [facility] encounter [facility]* Diagnosis Type 2 diabetes mellitus without complication, with long-term current use of insulin (HCC)- Primary Essential hypertension Unspecified essential hypertension [facility]* Diagnosis Onset Date Resolution Status Dyspnea on minimal exertion acute Paroxysmal atrial fibrillation acute Essential (primary) hypertension chronic Hyperlipidemia chronic Morbid obesity acute Restrictive airway disease a [facility] Work Phone: Evaluation note* Diagnosis Chest pain, unspecified type- Primary Accidental medication error, initial encounter [facility] Diagnosis Essential hypertension Unspecified essential hypertension [facility]* Diagnosis Essential hypertension- Primary Unspecified essential hypertension Paroxysmal atrial fibrillation (HCC) Atrial fibrillation Pure hypercholesterolemia Type 2 diabetes mellitus with microalbuminuria, with long-term current use of insulin (HCC) Chronic anticoagulation Long-term (current) use of anticoagulants Monocytosis Monocytosis (symptomatic) Need for influenza vaccination Need for prophylactic vaccination and inoculation against influenza [facility] encounter [facility]* Diagnosis Type 2 diabetes mellitus without complication, with long-term current use of insulin (HCC)- Primary [facility]* Diagnosis Onset Date Resolution Status Dyspnea on minimal exertion acute Paroxysmal atrial fibrillation acute Essential (primary) hypertension chronic Hyperlipidemia chronic [facility] Work Phone: Evaluation note* Diagnosis Pure hypercholesterolemia [facility]* Diagnosis Type 2 diabetes mellitus without complication, with long-term current use of insulin ([facility]) documented in this encounter [facility] note* Diagnosis Onset Date Resolution Status Essential (primary) hypertension chronic Nonobstructive atherosclerosis of coronary artery chronic Paroxysmal atrial fibrillation chronic Chest pain acute Dyspnea on minimal exertion acute History of atrial fibrillation acute [facility] Work Phone: Evaluation note* Diagnosis Type 2 diabetes mellitus with microalbuminuria, with long-term current use of insulin (HCC)- Primary documented [facility] encounter [facility]* Diagnosis Chest pain, unspecified type- Primary Leukocytosis, unspecified type Type 2 diabetes mellitus with microalbuminuria, with long-term current use of insulin ([facility]) Schizophrenia, 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, chronic condition Paroxysmal atrial fibrillation (HCC) Atrial fibrillation Essential hypertension Unspecified essential hypertension Pure hypercholesterolemia [facility]* Diagnosis Skin mass- Primary Localized superficial swelling, mass, or lump [facility]* Diagnosis Lesion of subcutaneous tissue- Primary Unspecified disorder of skin and subcutaneous tissue [facility]* Diagnosis Acute left ankle pain- Primary documented [facility] encounter [facility]* Diagnosis Onset Date Resolution Status History of atrial fibrillation acute Chest pain resolved Dyspnea on minimal exertion resolved Shortness of breath on exertion acute [facility] Work Phone: Evaluation note* Diagnosis Nausea- Primary Nausea alone Hypoglycemia Hypoglycemia, unspecified Type 2 diabetes mellitus with microalbuminuria, with long-term current use of insulin ([facility]) Leukocytosis, unspecified type Abnormal serum level of lipase Other nonspecific abnormal serum enzyme levels Benign prostatic hyperplasia with lower urinary tract symptoms, symptom details unspecified Urinary retention Retention of urine, unspecified documented in this encounter [facility] note* Diagnosis Acute constipation- Primary Unspecified constipation documented in this encounter [facility] note* Diagnosis OPENED IN ERROR- Primary To allow closing an encounter opened in error (used in SmartSet) documented [facility] this encounter [facility]* Diagnosis Onset Date Resolution Status Shortness of breath on exertion [facility] Work Phone: Evaluation note* Diagnosis Inflamed acrochordon- Primary Unspecified hypertrophic and atrophic condition of skin Seborrheic keratoses, inflamed Inflamed seborrheic keratosis documented [facility] this encounter [facility]* Diagnosis Encounter for post surgical wound check- Primary documented in this encounter [facility]* Diagnosis Near syncope- Primary Syncope and collapse Fall, initial encounter Acute upper respiratory infection Acute upper respiratory infections of unspecified site Morbid obesity (HCC) Morbid obesity documented [facility] encounter [facility]* Diagnosis Essential hypertension- Primary Unspecified essential hypertension Encounter for immunization Need for other specified prophylactic vaccination against single bacterial disease Paroxysmal atrial fibrillation (HCC) Atrial fibrillation Mixed hyperlipidemia Schizophrenia, 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, chronic condition Chronic anticoagulation Long-term (current) use of anticoagulants Type 2 diabetes mellitus with microalbuminuria, with long-term current use of insulin ([facility]) Restrictive lung disease Other diseases of lung, not elsewhere classified documented [facility] this encounter [facility]* Diagnosis Diarrhea, unspecified type [facility]* Diagnosis Viral URI with cough- Primary Acute upper respiratory infections of unspecified site Suspected COVID-19 virus infection Bronchitis Bronchitis, not specified as acute or chronic documented [facility] this encounter [facility]* Diagnosis Nausea Nausea alone documented in this encounter [facility] noteNo assessment information availableWMercy Health Work Phone: Evaluation note* Diagnosis Acute hip pain, right- Primary documented in this encounter [facility]* Diagnosis Pure hypercholesterolemia documented [facility] this encounter [facility]* Diagnosis Essential hypertension Unspecified essential hypertension [facility]* Diagnosis Type 2 diabetes mellitus without complication, with long-term current use of insulin (HCC)- Primary [facility] this encounter [facility]* Diagnosis Paroxysmal atrial fibrillation [...] of insulin (HCC) [facility]* Diagnosis Paroxysmal atrial fibrillation (HCC)- Primary Atrial fibrillation Restrictive lung disease Other diseases of lung, not elsewhere classified Pain of right hip Psoriatic arthritis (HCC) Psoriatic arthropathy documented [facility] this encounter [facility]* Diagnosis Viral URI with cough Acute upper respiratory infections of unspecified site Bronchitis Bronchitis, not specified as acute or chronic documented [facility] this encounter [facility]* Diagnosis Nausea Nausea alone [facility]* Diagnosis SOB (shortness of breath)- Primary Shortness of breath Bilateral leg edema Edema Weight increase Abnormal weight gain [facility]* Diagnosis 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 Venous incompetence Unspecified venous (peripheral) insufficiency Bilateral leg edema Edema SOB (shortness of breath) Shortness of breath Weight gain Abnormal weight gain CJ (obstructive sleep apnea) Obstructive sleep apnea (adult) (pediatric) Hypersomnolence Hypersomnia, unspecified Cushingoid facies Other ill-defined conditions documented [facility] this encounter [facility]* Diagnosis Venous incompetence- Primary Unspecified venous (peripheral) insufficiency Lymphedema of left leg Other lymphedema Varicose veins of both legs with edema [facility] Diagnosis Abrasion of left hand, initial encounter- Primary [facility]* Diagnosis Encounter for medical assessment- Primary [facility] Diagnosis Essential hypertension Unspecified essential hypertension [facility]* Diagnosis SOB (shortness of breath) Shortness of breath Bilateral leg edema Edema Weight increase Abnormal weight gain [facility]* Diagnosis Generalized weakness- Primary Other malaise and fatigue [facility]* Diagnosis Sinobronchitis Unspecified sinusitis (chronic) [facility]* Diagnosis Viral URI with cough Acute upper respiratory infections of unspecified site Bronchitis Bronchitis, not specified as acute or chronic [facility]* Diagnosis Acute hip pain, right [facility]* Diagnosis Acute left ankle pain documented in this encounter [facility]* Diagnosis Diarrhea, unspecified type documented [facility]* Diagnosis Rib pain Chest pain, unspecified documented in this encounter [facility] note* Diagnosis SOB (shortness of breath) Shortness of breath documented in this encounter [facility] note* Diagnosis Essential hypertension- Primary Unspecified [...] (HCC) Psoriatic arthropathy documented in this encounter [facility] note* Diagnosis Snoring- Primary Other dyspnea and respiratory abnormality Witnessed episode of apnea Nocturnal leg movements Abnormal involuntary movements Frequent nocturnal awakening Other sleep disturbances Nocturia documented in this encounter [facility] note* Diagnosis Type 2 diabetes mellitus [...] Other B-complex deficiencies documented in this encounter [facility] note* Diagnosis Nausea Nausea alone documented in this encounter [facility] note* Diagnosis Chronic respiratory failure with hypoxia (HCC)- Primary Chronic respiratory failure [facility]* Diagnosis Systolic congestive heart failure, unspecified HF chronicity (HCC) documented in this encounter [facility] note* Diagnosis Systolic congestive heart failure, unspecified HF chronicity (HCC) documented in this encounter [facility] note* Diagnosis Pure hypercholesterolemia documented in this encounter [facility] note* Diagnosis Dizziness- Primary Dizziness and giddiness Chest pain, unspecified type documented in this encounter [facility] note* Diagnosis Type 2 diabetes mellitus without complication, with long-term current use of insulin (HCC) documented [facility]* Diagnosis 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 documented [facility]* Diagnosis Essential hypertension- Primary Unspecified essential hypertension Paroxysmal atrial fibrillation (HCC) Atrial fibrillation Dizziness Dizziness and giddiness Systolic congestive heart failure, unspecified HF chronicity (HCC) documented in this encounter [facility] note* Diagnosis 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 Essential hypertension Unspecified essential hypertension documented in this encounter [facility] note* Diagnosis Essential hypertension Unspecified essential hypertension documented [facility]* Diagnosis 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 Nonobstructive atherosclerosis of coronary artery Pure hypercholesterolemia documented in this [facility]* Diagnosis Acute diastolic CHF (congestive [...] Unspecified essential hypertension documented in this encounter [facility] note* Diagnosis 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, macular edema presence unspecified, unspecified retinopathy severity (HCC) [facility] Diagnosis Contusion of left foot, subsequent encounter- Primary Foot pain, left Pain in limb Contusion of left foot, subsequent encounter Foot pain, left Pain in limb [facility] Diagnosis Contusion of left foot, subsequent encounter Foot pain, left Pain in limb [facility] Diagnosis Closed fracture of foot, unspecified laterality, initial encounter- Primary [facility]* Diagnosis Closed fracture of foot, unspecified laterality, initial encounter [facility] Diagnosis Closed fracture of foot, unspecified laterality, initial encounter [facility]* Diagnosis Essential hypertension- Primary Unspecified essential hypertension Nausea Nausea alone 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) documented [facility]* Diagnosis Paroxysmal atrial fibrillation (HCC) Atrial fibrillation 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) [facility]* Diagnosis 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) [facility] Additional Instructions Please continue all of your home medications as previously directed but keep yourself well-hydrated as your exam and laboratory studies showed elevation to your kidney function consistent with dehydration. If you have any further concerns please return the hospital for [facility] Work Phone: Progress note Author Tierra [facility] Note Date/Time June 11, 2025 12:01pm [facility] [address] [place] [address]. [address] [place] [address] OFFICE VISIT Date of Service: 06/11/25 MR#: [id number] Acct: [id number] Name: FAISAL ALARCON Rep #: [id number] : 1945 Provider: CASIMIRO Obrien Age/Sex: 80/M [place] [facility] [place] Status: Signed HPI HPI History of Present Illness Details: Faisal Alarcon is an 80-year-old male who presents to the office today for hospital follow-up. Patient has a history of right bundle branch block, nonobstructive coronary artery disease, hypertension and hyperlipidemia. Patient was admitted to [facility] in July 2024 for shortness of breath [...] cardiac workup was negative. Patient presented to [facility] 04/29/2025 with concerns of syncope. Daughter reports that he was evaluated and they were told it was likely secondary to dehydration. Echocardiogram demonstrated an ejection fraction of 60%, mild LVH, mild?moderate aortic valve stenosis. Stress test wasnegative for ischemia or infarction. His coreg was decreased to 12.5 mg BID. Patient was admitted to [facility] on May 31, 2025 for chest pain. [...] Orders: Orders 12 Lead [place] performed [place] [facility] [place] Z86.79 - Personal history of other diseases of the circulatory system Patient Instructions: I will look for your monitor. Based on findings I will call you back. We may consider decreasing your carvedilol or stopping your diltiazem because her blood pressure is on the low side today. Plan Details Follow Up: 3 Months (MMM/SD) 1 Year (END FRAZER) Coding Level of Care Code Off vis,est,level [...] applicable) CC: Dr. Mathieu Virgen MD ~ [facility] [employer] Work Phone: Reason for referral (narrative)* Diagnostic Procedure Only (Urgent) - Closed Specialty Diagnoses / Procedures [facility] To Contact [facility] Diagnoses Acute left ankle pain Procedures XR ANKLE GENERAL 3V AP/LAT/OBL LEFT RADEX ANKLE COMPLETE MINIMUM 3 VIEWS Denisha Shepard APRN.CNP [address] [place] [address] Xr Imaging Referral ID Status Reason Start Date Expiration Date V isits Requested Visits Authorized [id number] Closed Auto-Generate d Referral 02/16/2023 03/17/2024 1 1 [facility] for referral (narrative)* Outpatient Procedure (Routine) - Authorized Specialty Diagnoses / Procedures [facility] Diagnoses Near syncope Fall, initial encounter Procedures ECG COMPLETE ECG ROUTINE ECG W/LEAST 12 LDS W/I&R Osvaldo Travis PA-C [address] [place] [address] [facility] [address] [place] [address] Referral ID Status Reason Start Date Expiration Date Visits Requested Visits Authorized [id number] Authorized Auto-Generat ed Referral 05/18/2023 05/17/2024 1 1 [facility] for referral (narrative)* Diagnostic Procedure Only (Routine) - Closed Specialty Diagnoses / Procedures [facility] To Contact [facility] Diagnoses Acute hip pain, right Procedures XR HIP GENERAL 3V PELV/AP/LAT RIGHT RADEX HIP UNILATERAL WITH PELVIS 2-3 VIEWS Pio Nicole MD [address] [place] [address] [place] [address] Referral ID Status Reason Start Date Expiration Date V isits Requested Visits Authorized [id number] Closed Auto-Generate d Referral 07/23/2023 08/21/2024 1 1 [facility] for referral (narrative)* Outpatient Procedure (Routine) - Pending Review Specialty Diagnoses / Procedures Referred By Contac t Referred To Contact [facility] Diagnoses SOB (shortness of breath) Bilateral leg edema Weight increase Procedures ECG COMPLETE ECG ROUTINE ECG W/LEAST 12 LDS W/I&R Osvaldo Travis PA-C [address] [place] [address] [address] Referral ID Status Reason Start Date Expiration Date Visits Requested Visits Authorized [id number] Pending Review Auto-Generat ed Referral 02/04/2024 02/03/2025 1 1 [facility] for referral (narrative)* Outpatient Procedure (Routine) - Pending Review Specialty Diagnoses / Procedures Referred By Contac t Referred To Contact [facility] Diagnoses Varicose veins of both lower extremities with inflammation Procedures US VENOUS INCOMPETENCY KARON VAS LAB DUP-SCAN XTR VEINS COMPLETE BILATERAL STUDY Osvaldo Travis PA-C [address] [place] [address] [address] Referral ID Status Reason Start Date Expiration Date Visits Requested Visits Authorized [id number] Pending Review Auto-Generat ed Referral 02/28/2024 02/27/2025 1 1 * Consult, Test, Treat (Routine) - Authorized Specialty Diagnoses / Procedures Referred By Contac t Referred To Contact Diagnoses CJ (obstructive sleep apnea) Hypersomnolence Procedures CONSULT TO SLEEP MEDICINE - ADULT OFFICE/OUTPATIENT [facility] 60 MINUTES Osvaldo Travis PA-C [address] [place] [address] Referral ID Status Reason Start Date Expiration Date Visits Requested Visits Authorized [id number] Authorized PCP Requested Referral 02/28/2024 02/27/2025 1 1 * Outpatient Procedure (Routine) - Authorized Specialty Diagnoses / Procedures Referred By Contac t Ref[facility] Diagnoses Bilateral leg edema SOB (shortness of breath) Weight gain Procedures ECHO ECHO TTHRC R-T 2D W/WOM-MODE COMPL SPEC&COLR Osvaldo Rojas PA-C [address] [place] [address] [facility] [address] [place] [address] Referral ID Status Reason Start Date Expiration Date Visits Requested Visits Authorized [id number] Authorized Auto-Generat ed Referral 02/28/2024 02/27/2025 1 1 [facility] for referral (narrative)* Diagnostic Procedure Only (Routine) - Closed Specialty Diagnoses / Procedures Referred By Contac t Referred To Contact XR IMAGING Diagnoses Acute hip pain, right Procedures XR HIP GENERAL 3V PELV/AP/LAT RIGHT RADEX HIP UNILATERAL WITH PELVIS 2-3 VIEWS Pio Nicole MD [address] [place] [address] [place] [address] Referral ID Status Reason Start Date Expiration Date V isits Requested Visits Authorized [id number] Closed Auto-Generate d Referral 07/23/2023 08/21/2024 1 1 [facility] for referral (narrative)* Diagnostic Procedure Only (Urgent) - Closed Specialty Diagnoses / Procedures Referred By Contac t Referred To Contact XR IMAGING Diagnoses Acute left ankle pain Procedures XR ANKLE GENERAL 3V AP/LAT/OBL LEFT RADEX ANKLE COMPLETE MINIMUM 3 VIEWS Denisha Shepard APRN.MANUFACTURING MAINTENANCE TECHNICIAN [address] [place] [address] [place] [address] Referral ID Status Reason Start Date Expiration Date V isits Requested Visits Authorized [id number] Closed Auto-Generate d Referral 02/16/2023 03/17/2024 1 1 [facility] for referral (narrative)* Diagnostic Procedure Only (Routine) - Closed Specialty Diagnoses / Procedures Referred By Contac t Referred To Contact XR IMAGING Diagnoses Rib pain Procedures XR RIBS/CHEST 3V AP RIB/OBLS/CXR RT X-RAY RIBS, CHEST 3+ VW Mathieu Virgen MD [address] [place] [address] [place] [address] Referral ID Status Reason Start Date Expiration Date V isits Requested Visits Authorized [id number] Closed Auto-Generate d Referral 05/25/2021 09/16/2021 99 99 [facility] for referral (narrative)No reason for referral information availableWMercy Health Work Phone: [facility] for visit Narrative* Diagnostic Procedure Only (Routine) - Closed Specialty Diagnoses / Procedures Referred By Contac t Referred To Contact XR IMAGING Diagnoses Acute hip pain, right Procedures XR HIP GENERAL 3V PELV/AP/LAT RIGHT RADEX HIP UNILATERAL WITH PELVIS 2-3 VIEWS Pio Nicole MD [address] [place] [address] [place] [address] Referral ID Status Reason Start Date Expiration Date V isits Requested Visits Authorized [id number] Closed Auto-Generate d Referral 07/23/2023 08/21/2024 1 1 [facility] for visit Narrative* Diagnostic Procedure Only (Urgent) - Closed Specialty Diagnoses / Procedures Referred By Contac t Referred To Contact XR IMAGING Diagnoses Acute left ankle pain Procedures XR ANKLE GENERAL 3V AP/LAT/OBL LEFT RADEX ANKLE COMPLETE MINIMUM 3 VIEWS Denisha Shepard APRN.CNP [address] [place] [address] [place] [address] Referral ID Status Reason Start Date Expiration Date V isits Requested Visits Authorized [id number] Closed Auto-Generate d Referral 02/16/2023 03/17/2024 1 1 [facility] for visit Narrative* Diagnostic Procedure Only (Routine) - Closed Specialty Diagnoses / Procedures Referred By Contac t Referred To Contact XR IMAGING Diagnoses Rib pain Procedures XR RIBS/CHEST 3V AP RIB/OBLS/CXR RT X-RAY RIBS, CHEST 3+ VW Mathieu Virgen MD [address] [place] [address] [place] [address] Referral ID Status Reason Start Date Expiration Date V isits Requested Visits Authorized [id number] Closed Auto-Generate d Referral 05/25/2021 09/16/2021 99 99 [facility] for visit Narrative* Diagnostic Procedure Only (Urgent) - Closed Specialty Diagnoses / Procedures Referred By Contac t Referred To Contact XR IMAGING Diagnoses Contusion of left foot, subsequent encounter Foot pain, left Procedures XR FOOT GENERAL 3V AP/LAT/OBL LEFT RADEX FOOT COMPLETE MINIMUM 3 VIEWS Mathieu Virgen MD [address] [place] [address] Phone: tel: fax: [place] [address] Referral ID Status Reason Start Date Expiration Date V isits Requested Visits Authorized [id number] Closed Auto-Generate d Referral 01/12/2025 02/11/2026 1 1 [facility] for visit Narrative* Diagnostic Procedure Only (Routine) - Closed Specialty Diagnoses / Procedures Referred By Contac t Referred To Contact XR IMAGING Diagnoses Closed fracture of foot, unspecified laterality, initial encounter Procedures XR FOOT GENERAL 3V AP/LAT/OBL LEFT RADEX FOOT COMPLETE MINIMUM 3 VIEWS Jamal Mace [address] [place] [address] Phone: tel: fax: [place] [address] Referral ID Status Reason Start Date Expiration Date V isits Requested Visits Authorized [id number] Closed Auto-Generate d Referral 01/22/2025 02/21/2026 1 1 [facility] Advance Directives No Advanced Directives Records FoundDocuments on File Type Date Recorded 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 Advance Directive(s) Advance Directive(s) 03/14/2021 10:51 AM Documents on File Type Date Recorded 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 Advance Directive(s) Advance Directive(s) 03/14/2021 10:51 AM Advance Directive Response Recorded Date/ Time Living Will No October 26 12:42pm Power of Art Educator Yes October 26, 2021 12:42pm Advance Directive Response Recorded Date/ Time Name of Medical Power of Art Educator farida harrisr April 08, 2022 4:03pm Living Will Yes April 08, 2022 4:03pm Power of Art Educator Yes April 08 4:03pm Documents on File Type Date Recorded 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 Advance Directive(s) 03/14/2021 10:51 AM Advance Directive Response Recorded Date/ Time Living Will No August 08 9:00am Power of Art Educator No August 08, 2022 9:00am Advance Directive Response Recorded Date/ Time Name of Medical Power of Art Educator Farida Harrisr November 21, 2022 8:28am Living Will Yes November 21, 2022 8:28am Power of Art Educator Yes November 21 8:28am Documents on File Type Date Recorded 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 Advance Directive(s) 03/14/2021 10:51 AM Advance Directive Response Recorded Date/ Time Name of Medical Power of Art Educator Farida Harrisr November 21, 2022 9:28am Name of Medical Power of Art Educator FÉLIX February 24, 2023 9:59pm Name of Medical Power of Art Educator Farida Harrisr March 01, 2023 9:06pm Living Will Yes March 01, 2023 9:06pm Power of Art Educator Yes March 01 9:06pm Advance Directive Response Recorded Date/ Time Name of Medical Power of Art Educator FÉLIX February 24, 2023 9:59pm Name of Medical Power of Art Educator Farida Harrisr March 01, 2023 9:06pm Name of Medical Power of Art Educator Farida Harrisr March 31, 2023 12:26am Living Will Yes March 31, 2023 12:26am Power of Art Educator Yes March 31 12:26am Advance Directive Response Recorded Date/ Time Living Will Yes March 31, 2023 12:26am Power of Art Educator Yes March 31 12:26am Name of Medical Power of Art Educator Farida Beck March 31, 2023 12:26am Advance Directive Response Recorded Date/ Time Living Will Yes September 22 10:15am Power of Art Educator Yes September 22 024 10:15am Name of Medical Power of Art Educator Farida September 22, 2023 10:15am Advance Directive Response Recorded Date/ Time Living Will Yes June 24 1:50am Do you have a Healthcare Pow er of Art Educator? Yes June 24, 2024 1:50am Living Will No September 20 4:50pm Do you have a Healthcare Pow er of Art Educator? Yes September 20, 2024 4:50pm Name of Medical Power of Art Educator FARIDA BECK September 20, 2024 4:50pm Living Will Yes November 03 025 1:12am Do you have a Healthcare Pow er of Art Educator? Yes November 03, 2024 1:12am Name of Medical Power of Art Educator daughter November 03, 2024 1:12am Living Will Yes September 01 5:43am Do you have a Healthcare Pow er of Art Educator? Yes September 01, 2024 5:43am Name of Medical Power of Art Educator oracio Davalosught er September 01, 2024 5:43am Advance Directive Response Recorded Date/ Time Living Will Yes September 22 11:15am Do you have a Healthcare Power of Art Educator? Yes September 22, 2023 11:15am Living Will Yes November 03 025 1:12am Do you have a Healthcare Power of Art Educator? Yes November 03, 2024 1:12am Name of Medical Power of Art Educator daughter November 03, 2024 1:12am Do you have a Healthcare Power of Art Educator? Yes January 19, 2025 11:33pm Advance Directive Response Recorded Date/ Time Living Will Yes September 22 11:15am Do you have a Healthcare Power of Art Educator? Yes September 22, 2023 11:15am Do you have a Healthcare Power of Art Educator? Yes January 19, 2025 11:33pm Advance Directive Response Recorded Date/ Time Do you have a Healthcare Power of Art Educator? Yes January 19, 2025 11:33pm Advance Directive Response Recorded Date/ Time Do you have a Healthcare Power of Art Educator? Yes January 19, 2025 11:33pm Do you have a Healthcare Power of Art Educator? Yes April 29, 2025 3:41pm Advance Directive Response Recorded Date/ Time Do you have a Healthcare Power of Art Educator? Yes January 19, 2025 11:33pm Do you have a Healthcare Power of Art Educator? Yes April 29, 2025 9:43pm Advance Directive Response Recorded Date/ Time Do you have a Healthcare Power of Art Educator? No May 31, 2025 11:11am Do you have a Healthcare Power of Art Educator? Yes April 29, 2025 9:43pm Advance Directive Response Recorded Date/ Time Do you have a Healthcare Power of Art Educator? Yes May 31, 2025 5:02pm Do you have a Healthcare Power of Art Educator? Yes April 29, 2025 9:43pm Reason for Referral Specialty Diagnoses / Procedures Referred By Contac t Referred To Contact Orthopedics Diagnoses Strain of calf muscle, right, initial encounter Procedures CONSULT TO ORTHOPAEDICS OFFICE/OUTPATIENT [facility] 60-74 MINUTES Saad Park APRN.CNP [address] [place] [address] Referral ID Status Reason Start Date Expiration Date Visits Requested Visits Authorized [id number] Pending Review PCP Requested Referral 01/27/2022 01/27/2023 1 1 Specialty Diagnoses / Procedures Referred By Contac t Referred To Contact [facility] Diagnoses Gastrocnemius tear, right, initial encounter Procedures CONSULT TO PHYSICAL THERAPY PHYSICAL THERAPY EVALUATION HIGH COMPLEX 45 MINS Papito Castano V, DO [address] [place] [address] [facility] [address] [address] Referral ID Status Reason Start Date Expiration Date Visits Requested Visits Authorized [id number] Pending Review Auto-Generat ed Referral 02/03/2022 02/03/2023 1 1 Specialty Diagnoses / Procedures Referred By Contac t Referred To Contact General Surgery Diagnoses Skin mass Procedures CONSULT TO GENERAL SURGERY OFFICE/OUTPATIENT [facility] 60-74 MINUTES Mathieu Virgen MD [address] [place] [address] Referral ID Status Reason Start Date Expiration Date Visits Requested Visits Authorized [id number] Pending Review PCP Requested Referral 01/19/2023 01/19/2024 1 1 Specialty Diagnoses / Procedures Referred By Contac t Referred To Contact Urology Diagnoses Benign prostatic hyperplasia with lower urinary tract symptoms, symptom details unspecified Urinary retention Procedures CONSULT TO UROLOGY Mathieu Virgen MD [address] [place] [address] Referral ID Status Reason Start Date Expiration Date Visits Requested Visits Authorized [id number] Ref Not Required PCP Requested Referral 03/02/2023 03/01/2024 1 1 Specialty Diagnoses / Procedures Referred By Alyac t Referred To Contact Ophthalmology Diagnoses Type 2 diabetes mellitus with microalbuminuria, with long-term current use of insulin (HCC) Procedures CONSULT TO OPHTHALMOLOGY OFFICE/OUTPATIENT [facility] 60-74 MINUTES Mathieu Virgen MD [address] [place] [address] Referral ID Status Reason Start Date Expiration Date Visits Requested Visits Authorized [id number] Pending Review PCP Requested Referral 06/06/2023 06/05/2024 1 1 Specialty Diagnoses / Procedures Referred By Shara t Referred To Contact [facility] Diagnoses Venous incompetence Lymphedema of left leg Varicose veins of both legs with edema Procedures CONSULT TO LYMPHEDEMA THERAPY OFFICE/OUTPATIENT [facility] 60 MINUTES Osvaldo Travis PA-C [address] [place] [address] [facility] [place] [address] [place] [address] Referral ID Status Reason Start Date Expiration Date Visits Requested Visits Authorized [id number] Authorized Auto-Generat ed Referral 03/21/2024 03/21/2025 1 [...] Pap compliance January 21, 2025 2:31pm S/P [facility] 01/20January 26, 2025 9:38a m R06.02 [...] Pap compliance January 21, 2025 2:31pm S/P [facility] 01/20January 26, 2025 9:38a m R06.02 [...] Pap compliance January 21, 2025 2:31pm S/P [facility] 01/20January 26, 2025 9:38a m R06.02 [...] Pap compliance January 21, 2025 2:31pm S/P [facility] 01/20January 26, 2025 9:38a m R06.02 [...] Pap compliance January 21, 2025 2:31pm S/P [facility] 01/20January 26, 2025 9:38a m R06.02 [...] Syncope April 30, 2025 10 :34am S/P [facility] 04/30May 04, 2025 9: 43am Chief [...] Syncope April 30, 2025 3: 59pm S/P [facility] 04/30May 04, 2025 9: 43am chest [...] atrial fibrillation April 292024 7:37pm Aortic stenosis [place] 18th, 2025 9: 43am Essential (primary) hypertension [...] Syncope April 30, 2025 3: 59pm S/P [facility] 04/30May 04, 2025 9: 43am chest [...] Syncope April 30, 2025 3: 59pm S/P [facility] 04/30May 04, 2025 9: 43am chest [...] or prosecute any alcohol or drug abuse patient.[facility] HospitalIn the event this information is protected by the Federal Confidentiality of Alcohol and Drug Abuse Patient Records regulations: The Federal rules restrict any use of the information to criminally investigate or prosecute any alcohol or drug abuse patient.[facility] HospitalIn the event this information is protected by the Federal Confidentiality of Alcohol and Drug Abuse Patient Records regulations: The Federal rules restrict any use of the information to criminally investigate or prosecute any alcohol or drug abuse patient.[facility] HospitalIn the event this information is protected by the Federal Confidentiality of Alcohol and Drug Abuse Patient Records regulations: The Federal rules restrict any use of the information to criminally investigate or prosecute any alcohol or drug abuse patient.[facility] HospitalIn the event this information is protected by the Federal Confidentiality of Alcohol and Drug Abuse Patient Records regulations: The Federal rules restrict any use of the information to criminally investigate or prosecute any alcohol or drug abuse patient.[facility] HospitalIn the event this information is protected by the Federal Confidentiality of Alcohol and Drug Abuse Patient Records regulations: The Federal rules restrict any use of the information to criminally investigate or prosecute any alcohol or drug abuse patient.[facility] HospitalIn the event this information is protected by the Federal Confidentiality of Alcohol and Drug Abuse Patient Records regulations: The Federal rules restrict any use of the information to criminally investigate or prosecute any alcohol or drug abuse patient.[facility] HospitalIn the event this information is protected [...] or prosecute any alcohol or drug abuse patient.[facility] HospitalIn the event this information is protected by the Federal Confidentiality of Alcohol and Drug Abuse Patient Records regulations: The Federal rules restrict any use of the information to criminally investigate or prosecute any alcohol or drug abuse patient.[facility] HospitalIn the event this information is protected by the Federal Confidentiality of Alcohol and Drug Abuse Patient Records regulations: The Federal rules restrict any use of the information to criminally investigate or prosecute any alcohol or drug abuse patient.[facility] HospitalIn the event this information is protected by the Federal Confidentiality of Alcohol and Drug Abuse Patient Records regulations: The Federal rules restrict any use of the information to criminally investigate or prosecute any alcohol or drug abuse patient.[facility] HospitalIn the event this information is protected by the Federal Confidentiality of Alcohol and Drug Abuse Patient Records regulations: The Federal rules restrict any use of the information to criminally investigate or prosecute any alcohol or drug abuse patient.[facility] HospitalIn the event this information is protected by the Federal Confidentiality of Alcohol and Drug Abuse Patient Records regulations: The Federal rules restrict any use of the information to criminally investigate or prosecute any alcohol or drug abuse patient.[facility] HospitalIn the event this information is protected by the Federal Confidentiality of Alcohol and Drug Abuse Patient Records regulations: The Federal rules restrict any use of the information to criminally investigate or prosecute any alcohol or drug abuse patient.[facility] HospitalIn the event this information is protected by the Federal Confidentiality of Alcohol and Drug Abuse Patient Records regulations: The Federal rules restrict any use of the information to criminally investigate or prosecute any alcohol or drug abuse patient.[facility] HospitalIn the event this information is protected by the Federal Confidentiality of Alcohol and Drug Abuse Patient Records regulations: The Federal rules restrict any use of the information to criminally investigate or prosecute any alcohol or drug abuse patient.[facility] HospitalIn the event this information is protected by the Federal Confidentiality of Alcohol and Drug Abuse Patient Records regulations: The Federal rules restrict any use of the information to criminally investigate or prosecute any alcohol or drug abuse patient.[facility] HospitalIn the event this information is protected by the Federal Confidentiality of Alcohol and Drug Abuse Patient Records regulations: The Federal rules restrict any use of the information to criminally investigate or prosecute any alcohol or drug abuse patient.[facility] HospitalIn the event this information is protected by the Federal Confidentiality of Alcohol and Drug Abuse Patient Records regulations: The Federal rules restrict any use of the information to criminally investigate or prosecute any alcohol or drug abuse patient.[facility] HospitalIn the event this information is protected by the Federal Confidentiality of Alcohol and Drug Abuse Patient Records regulations: The Federal rules restrict any use of the information to criminally investigate or prosecute any alcohol or drug abuse patient.[facility] HospitalIn the event this information is protected by the Federal Confidentiality of Alcohol and Drug Abuse Patient Records regulations: The Federal rules restrict any use of the information to criminally investigate or prosecute any alcohol or drug abuse patient.[facility] HospitalIn the event this information is protected by the Federal Confidentiality of Alcohol and Drug Abuse Patient Records regulations: The Federal rules restrict any use of the information to criminally investigate or prosecute any alcohol or drug abuse patient.[facility] HospitalIn the event this information is protected by the Federal Confidentiality of Alcohol and Drug Abuse Patient Records regulations: The Federal rules restrict any use of the information to criminally investigate or prosecute any alcohol or drug abuse patient.[facility] HospitalIn the event this information is protected by the Federal Confidentiality of Alcohol and Drug Abuse Patient Records regulations: The Federal rules restrict any use of the information to criminally investigate or prosecute any alcohol or drug abuse patient.[facility] HospitalIn the event this information is protected by the Federal Confidentiality of Alcohol and Drug Abuse Patient Records regulations: The Federal rules restrict any use of the information to criminally investigate or prosecute any alcohol or drug abuse patient.[facility] HospitalIn the event this information is protected by the Federal Confidentiality of Alcohol and Drug Abuse Patient Records regulations: The Federal rules restrict any use of the information to criminally investigate or prosecute any alcohol or drug abuse patient.[facility] HospitalIn the event this information is protected by the Federal Confidentiality of Alcohol and Drug Abuse Patient Records regulations: The Federal rules restrict any use of the information to criminally investigate or prosecute any alcohol or drug abuse patient.[facility] HospitalIn the event this information is protected by the Federal Confidentiality of Alcohol and Drug Abuse Patient Records regulations: The Federal rules restrict any use of the information to criminally investigate or prosecute any alcohol or drug abuse patient.[facility] HospitalIn the event this information is protected by the Federal Confidentiality of Alcohol and Drug Abuse Patient Records regulations: The Federal rules restrict any use of the information to criminally investigate or prosecute any alcohol or drug abuse patient.[facility] HospitalIn the event this information is protected by the Federal Confidentiality of Alcohol and Drug Abuse Patient Records regulations: The Federal rules restrict any use of the information to criminally investigate or prosecute any alcohol or drug abuse patient.[facility] HospitalIn the event this information is protected by the Federal Confidentiality of Alcohol and Drug Abuse Patient Records regulations: The Federal rules restrict any use of the information to criminally investigate or prosecute any alcohol or drug abuse patient.[facility] HospitalIn the event this information is protected by the Federal Confidentiality of Alcohol and Drug Abuse Patient Records regulations: The Federal rules restrict any use of the information to criminally investigate or prosecute any alcohol or drug abuse patient.[facility] HospitalIn the event this information is protected by the Federal Confidentiality of Alcohol and Drug Abuse Patient Records regulations: The Federal rules restrict any use of the information to criminally investigate or prosecute any alcohol or drug abuse patient.[facility] HospitalIn the event this information is protected by the Federal Confidentiality of Alcohol and Drug Abuse Patient Records regulations: The Federal rules restrict any use of the information to criminally investigate or prosecute any alcohol or drug abuse patient.[facility] HospitalIn the event this information is protected by the Federal Confidentiality of Alcohol and Drug Abuse Patient Records regulations: The Federal rules restrict any use of the information to criminally investigate or prosecute any alcohol or drug abuse patient.[facility] HospitalIn the event this information is protected by the Federal Confidentiality of Alcohol and Drug Abuse Patient Records regulations: The Federal rules restrict any use of the information to criminally investigate or prosecute any alcohol or drug abuse patient.[facility] HospitalIn the event this information is protected by the Federal Confidentiality of Alcohol and Drug Abuse Patient Records regulations: The Federal rules restrict any use of the information to criminally investigate or prosecute any alcohol or drug abuse patient.[facility] HospitalIn the event this information is protected by the Federal Confidentiality of Alcohol and Drug Abuse Patient Records regulations: The Federal rules restrict any use of the information to criminally investigate or prosecute any alcohol or drug abuse patient.[facility] HospitalIn the event this information is protected by the Federal Confidentiality of Alcohol and Drug Abuse Patient Records regulations: The Federal rules restrict any use of the information to criminally investigate or prosecute any alcohol or drug abuse patient.[facility] HospitalIn the event this information is protected by the Federal Confidentiality of Alcohol and Drug Abuse Patient Records regulations: The Federal rules restrict any use of the information to criminally investigate or prosecute any alcohol or drug abuse patient.[facility] HospitalIn the event this information is protected by the Federal Confidentiality of Alcohol and Drug Abuse Patient Records regulations: The Federal rules restrict any use of the information to criminally investigate or prosecute any alcohol or drug abuse patient.[facility] HospitalIn the event this information is protected by the Federal Confidentiality of Alcohol and Drug Abuse Patient Records regulations: The Federal rules restrict any use of the information to criminally investigate or prosecute any alcohol or drug abuse patient.[facility] HospitalIn the event this information is protected by the Federal Confidentiality of Alcohol and Drug Abuse Patient Records regulations: The Federal rules restrict any use of the information to criminally investigate or prosecute any alcohol or drug abuse patient.[facility] HospitalIn the event this information is protected by the Federal Confidentiality of Alcohol and Drug Abuse Patient Records regulations: The Federal rules restrict any use of the information to criminally investigate or prosecute any alcohol or drug abuse patient.[facility] HospitalIn the event this information is protected by the Federal Confidentiality of Alcohol and Drug Abuse Patient Records regulations: The Federal rules restrict any use of the information to criminally investigate or prosecute any alcohol or drug abuse patient.[facility] HospitalIn the event this information is protected by the Federal Confidentiality of Alcohol and Drug Abuse Patient Records regulations: The Federal rules restrict any use of the information to criminally investigate or prosecute any alcohol or drug abuse patient.[facility] HospitalIn the event this information is protected by the Federal Confidentiality of Alcohol and Drug Abuse Patient Records regulations: The Federal rules restrict any use of the information to criminally investigate or prosecute any alcohol or drug abuse patient.[facility] HospitalIn the event this information is protected by the Federal Confidentiality of Alcohol and Drug Abuse Patient Records regulations: The Federal rules restrict any use of the information to criminally investigate or prosecute any alcohol or drug abuse patient.[facility] HospitalIn the event this information is protected by the Federal Confidentiality of Alcohol and Drug Abuse Patient Records regulations: The Federal rules restrict any use of the information to criminally investigate or prosecute any alcohol or drug abuse patient.[facility] HospitalIn the event this information is protected by the Federal Confidentiality of Alcohol and Drug Abuse Patient Records regulations: The Federal rules restrict any use of the information to criminally investigate or prosecute any alcohol or drug abuse patient.[facility] HospitalIn the event this information is protected by the Federal Confidentiality of Alcohol and Drug Abuse Patient Records regulations: The Federal rules restrict any use of the information to criminally investigate or prosecute any alcohol or drug abuse patient.[facility] HospitalIn the event this information is protected by the Federal Confidentiality of Alcohol and Drug Abuse Patient Records regulations: The Federal rules restrict any use of the information to criminally investigate or prosecute any alcohol or drug abuse patient.[facility] HospitalIn the event this information is protected by the Federal Confidentiality of Alcohol and Drug Abuse Patient Records regulations: The Federal rules restrict any use of the information to criminally investigate or prosecute any alcohol or drug abuse patient.[facility] HospitalIn the event this information is protected by the Federal Confidentiality of Alcohol and Drug Abuse Patient Records regulations: The Federal rules restrict any use of the information to criminally investigate or prosecute any alcohol or drug abuse patient.[facility] HospitalIn the event this information is protected by the Federal Confidentiality of Alcohol and Drug Abuse Patient Records regulations: The Federal rules restrict any use of the information to criminally investigate or prosecute any alcohol or drug abuse patient.[facility] HospitalIn the event this information is protected by the Federal Confidentiality of Alcohol and Drug Abuse Patient Records regulations: The Federal rules restrict any use of the information to criminally investigate or prosecute any alcohol or drug abuse patient.[facility] HospitalIn the event this information is protected [...] or prosecute any alcohol or drug abuse patient.[facility] HospitalIn the event this information is protected by the Federal Confidentiality of Alcohol and Drug Abuse Patient Records regulations: The Federal rules restrict any use of the information to criminally investigate or prosecute any alcohol or drug abuse patient.[facility] HospitalIn the event this information is protected by the Federal Confidentiality of Alcohol and Drug Abuse Patient Records regulations: The Federal rules restrict any use of the information to criminally investigate or prosecute any alcohol or drug abuse patient.[facility] HospitalIn the event this information is protected by the Federal Confidentiality of Alcohol and Drug Abuse Patient Records regulations: The Federal rules restrict any use of the information to criminally investigate or prosecute any alcohol or drug abuse patient.[facility] HospitalIn the event this information is protected by the Federal Confidentiality of Alcohol and Drug Abuse Patient Records regulations: The Federal rules restrict any use of the information to criminally investigate or prosecute any alcohol or drug abuse patient.[facility] HospitalIn the event this information is protected by the Federal Confidentiality of Alcohol and Drug Abuse Patient Records regulations: The Federal rules restrict any use of the information to criminally investigate or prosecute any alcohol or drug abuse patient.[facility] HospitalIn the event this information is protected by the Federal Confidentiality of Alcohol and Drug Abuse Patient Records regulations: The Federal rules restrict any use of the information to criminally investigate or prosecute any alcohol or drug abuse patient.[facility] HospitalIn the event this information is protected by the Federal Confidentiality of Alcohol and Drug Abuse Patient Records regulations: The Federal rules restrict any use of the information to criminally investigate or prosecute any alcohol or drug abuse patient.[facility] HospitalIn the event this information is protected by the Federal Confidentiality of Alcohol and Drug Abuse Patient Records regulations: The Federal rules restrict any use of the information to criminally investigate or prosecute any alcohol or drug abuse patient.[facility] HospitalIn the event this information is protected by the Federal Confidentiality of Alcohol and Drug Abuse Patient Records regulations: The Federal rules restrict any use of the information to criminally investigate or prosecute any alcohol or drug abuse patient.[facility] HospitalIn the event this information is protected by the Federal Confidentiality of Alcohol and Drug Abuse Patient Records regulations: The Federal rules restrict any use of the information to criminally investigate or prosecute any alcohol or drug abuse patient.[facility] HospitalIn the event this information is protected by the Federal Confidentiality of Alcohol and Drug Abuse Patient Records regulations: The Federal rules restrict any use of the information to criminally investigate or prosecute any alcohol or drug abuse patient.[facility] HospitalIn the event this information is protected by the Federal Confidentiality of Alcohol and Drug Abuse Patient Records regulations: The Federal rules restrict any use of the information to criminally investigate or prosecute any alcohol or drug abuse patient.[facility] HospitalIn the event this information is protected by the Federal Confidentiality of Alcohol and Drug Abuse Patient Records regulations: The Federal rules restrict any use of the information to criminally investigate or prosecute any alcohol or drug abuse patient.[facility] HospitalIn the event this information is protected by the Federal Confidentiality of Alcohol and Drug Abuse Patient Records regulations: The Federal rules restrict any use of the information to criminally investigate or prosecute any alcohol or drug abuse patient.[facility] HospitalIn the event this information is protected by the Federal Confidentiality of Alcohol and Drug Abuse Patient Records regulations: The Federal rules restrict any use of the information to criminally investigate or prosecute any alcohol or drug abuse patient.[facility] HospitalIn the event this information is protected by the Federal Confidentiality of Alcohol and Drug Abuse Patient Records regulations: The Federal rules restrict any use of the information to criminally investigate or prosecute any alcohol or drug abuse patient.[facility] HospitalIn the event this information is protected by the Federal Confidentiality of Alcohol and Drug Abuse Patient Records regulations: The Federal rules restrict any use of the information to criminally investigate or prosecute any alcohol or drug abuse patient.[facility] HospitalIn the event this information is protected by the Federal Confidentiality of Alcohol and Drug Abuse Patient Records regulations: The Federal rules restrict any use of the information to criminally investigate or prosecute any alcohol or drug abuse patient.[facility] HospitalIn the event this information is protected by the Federal Confidentiality of Alcohol and Drug Abuse Patient Records regulations: The Federal rules restrict any use of the information to criminally investigate or prosecute any alcohol or drug abuse patient.[facility] HospitalIn the event this information is protected by the Federal Confidentiality of Alcohol and Drug Abuse Patient Records regulations: The Federal rules restrict any use of the information to criminally investigate or prosecute any alcohol or drug abuse patient.[facility] HospitalIn the event this information is protected by the Federal Confidentiality of Alcohol and Drug Abuse Patient Records regulations: The Federal rules restrict any use of the information to criminally investigate or prosecute any alcohol or drug abuse patient.[facility] HospitalIn the event this information is protected by the Federal Confidentiality of Alcohol and Drug Abuse Patient Records regulations: The Federal rules restrict any use of the information to criminally investigate or prosecute any alcohol or drug abuse patient.[facility] HospitalIn the event this information is protected by the Federal Confidentiality of Alcohol and Drug Abuse Patient Records regulations: The Federal rules restrict any use of the information to criminally investigate or prosecute any alcohol or drug abuse patient.[facility] HospitalIn the event this information is protected by the Federal Confidentiality of Alcohol and Drug Abuse Patient Records regulations: The Federal rules restrict any use of the information to criminally investigate or prosecute any alcohol or drug abuse patient.[facility] HospitalIn the event this information is protected by the Federal Confidentiality of Alcohol and Drug Abuse Patient Records regulations: The Federal rules restrict any use of the information to criminally investigate or prosecute any alcohol or drug abuse patient.[facility] HospitalIn the event this information is protected by the Federal Confidentiality of Alcohol and Drug Abuse Patient Records regulations: The Federal rules restrict any use of the information to criminally investigate or prosecute any alcohol or drug abuse patient.[facility] HospitalIn the event this information is protected by the Federal Confidentiality of Alcohol and Drug Abuse Patient Records regulations: The Federal rules restrict any use of the information to criminally investigate or prosecute any alcohol or drug abuse patient.[facility] HospitalIn the event this information is protected by the Federal Confidentiality of Alcohol and Drug Abuse Patient Records regulations: The Federal rules restrict any use of the information to criminally investigate or prosecute any alcohol or drug abuse patient.[facility] HospitalIn the event this information is protected by the Federal Confidentiality of Alcohol and Drug Abuse Patient Records regulations: The Federal rules restrict any use of the information to criminally investigate or prosecute any alcohol or drug abuse patient.[facility] HospitalIn the event this information is protected by the Federal Confidentiality of Alcohol and Drug Abuse Patient Records regulations: The Federal rules restrict any use of the information to criminally investigate or prosecute any alcohol or drug abuse patient.[facility] HospitalIn the event this information is protected by the Federal Confidentiality of Alcohol and Drug Abuse Patient Records regulations: The Federal rules restrict any use of the information to criminally investigate or prosecute any alcohol or drug abuse patient.[facility] HospitalIn the event this information is protected by the Federal Confidentiality of Alcohol and Drug Abuse Patient Records regulations: The Federal rules restrict any use of the information to criminally investigate or prosecute any alcohol or drug abuse patient.[facility] HospitalIn the event this information is protected by the Federal Confidentiality of Alcohol and Drug Abuse Patient Records regulations: The Federal rules restrict any use of the information to criminally investigate or prosecute any alcohol or drug abuse patient.[facility] HospitalIn the event this information is protected by the Federal Confidentiality of Alcohol and Drug Abuse Patient Records regulations: The Federal rules restrict any use of the information to criminally investigate or prosecute any alcohol or drug abuse patient.[facility] HospitalIn the event this information is protected by the Federal Confidentiality of Alcohol and Drug Abuse Patient Records regulations: The Federal rules restrict any use of the information to criminally investigate or prosecute any alcohol or drug abuse patient.[facility] HospitalIn the event this information is protected by the Federal Confidentiality of Alcohol and Drug Abuse Patient Records regulations: The Federal rules restrict any use of the information to criminally investigate or prosecute any alcohol or drug abuse patient.[facility] HospitalIn the event this information is protected by the Federal Confidentiality of Alcohol and Drug Abuse Patient Records regulations: The Federal rules restrict any use of the information to criminally investigate or prosecute any alcohol or drug abuse patient.[facility] HospitalIn the event this information is protected by the Federal Confidentiality of Alcohol and Drug Abuse Patient Records regulations: The Federal rules restrict any use of the information to criminally investigate or prosecute any alcohol or drug abuse patient.[facility] HospitalIn the event this information is protected by the Federal Confidentiality of Alcohol and Drug Abuse Patient Records regulations: The Federal rules restrict any use of the information to criminally investigate or prosecute any alcohol or drug abuse patient.[facility] HospitalIn the event this information is protected by the Federal Confidentiality of Alcohol and Drug Abuse Patient Records regulations: The Federal rules restrict any use of the information to criminally investigate or prosecute any alcohol or drug abuse patient.[facility] HospitalIn the event this information is protected by the Federal Confidentiality of Alcohol and Drug Abuse Patient Records regulations: The Federal rules restrict any use of the information to criminally investigate or prosecute any alcohol or drug abuse patient.[facility] HospitalIn the event this information is protected by the Federal Confidentiality of Alcohol and Drug Abuse Patient Records regulations: The Federal rules restrict any use of the information to criminally investigate or prosecute any alcohol or drug abuse patient.[facility] HospitalIn the event this information is protected by the Federal Confidentiality of Alcohol and Drug Abuse Patient Records regulations: The Federal rules restrict any use of the information to criminally investigate or prosecute any alcohol or drug abuse patient.[facility] HospitalIn the event this information is protected by the Federal Confidentiality of Alcohol and Drug Abuse Patient Records regulations: The Federal rules restrict any use of the information to criminally investigate or prosecute any alcohol or drug abuse patient.[facility] HospitalIn the event this information is protected by the Federal Confidentiality of Alcohol and Drug Abuse Patient Records regulations: The Federal rules restrict any use of the information to criminally investigate or prosecute any alcohol or drug abuse patient.[facility] HospitalIn the event this information is protected by the Federal Confidentiality of Alcohol and Drug Abuse Patient Records regulations: The Federal rules restrict any use of the information to criminally investigate or prosecute any alcohol or drug abuse patient.[facility] HospitalIn the event this information is protected by the Federal Confidentiality of Alcohol and Drug Abuse Patient Records regulations: The Federal rules restrict any use of the information to criminally investigate or prosecute any alcohol or drug abuse patient.[facility] HospitalIn the event this information is protected by the Federal Confidentiality of Alcohol and Drug Abuse Patient Records regulations: The Federal rules restrict any use of the information to criminally investigate or prosecute any alcohol or drug abuse patient.[facility] HospitalIn the event this information is protected [...] or prosecute any alcohol or drug abuse patient.[facility] HospitalIn the event this information is protected by the Federal Confidentiality of Alcohol and Drug Abuse Patient Records regulations: The Federal rules restrict any use of the information to criminally investigate or prosecute any alcohol or drug abuse patient.[facility] HospitalIn the event this information is protected by the Federal Confidentiality of Alcohol and Drug Abuse Patient Records regulations: The Federal rules restrict any use of the information to criminally investigate or prosecute any alcohol or drug abuse patient.[facility] HospitalIn the event this information is protected by the Federal Confidentiality of Alcohol and Drug Abuse Patient Records regulations: The Federal rules restrict any use of the information to criminally investigate or prosecute any alcohol or drug abuse patient.[facility] HospitalIn the event this information is protected by the Federal Confidentiality of Alcohol and Drug Abuse Patient Records regulations: The Federal rules restrict any use of the information to criminally investigate or prosecute any alcohol or drug abuse patient.[facility] HospitalIn the event this information is protected by the Federal Confidentiality of Alcohol and Drug Abuse Patient Records regulations: The Federal rules restrict any use of the information to criminally investigate or prosecute any alcohol or drug abuse patient.[facility] HospitalIn the event this information is protected by the Federal Confidentiality of Alcohol and Drug Abuse Patient Records regulations: The Federal rules restrict any use of the information to criminally investigate or prosecute any alcohol or drug abuse patient.[facility] HospitalIn the event this information is protected by the Federal Confidentiality of Alcohol and Drug Abuse Patient Records regulations: The Federal rules restrict any use of the information to criminally investigate or prosecute any alcohol or drug abuse patient.[facility] HospitalIn the event this information is protected by the Federal Confidentiality of Alcohol and Drug Abuse Patient Records regulations: The Federal rules restrict any use of the information to criminally investigate or prosecute any alcohol or drug abuse patient.[facility] HospitalIn the event this information is protected by the Federal Confidentiality of Alcohol and Drug Abuse Patient Records regulations: The Federal rules restrict any use of the information to criminally investigate or prosecute any alcohol or drug abuse patient.[facility] HospitalIn the event this information is protected by the Federal Confidentiality of Alcohol and Drug Abuse Patient Records regulations: The Federal rules restrict any use of the information to criminally investigate or prosecute any alcohol or drug abuse patient.[facility] HospitalIn the event this information is protected by the Federal Confidentiality of Alcohol and Drug Abuse Patient Records regulations: The Federal rules restrict any use of the information to criminally investigate or prosecute any alcohol or drug abuse patient.[facility] HospitalIn the event this information is protected by the Federal Confidentiality of Alcohol and Drug Abuse Patient Records regulations: The Federal rules restrict any use of the information to criminally investigate or prosecute any alcohol or drug abuse patient.[facility] HospitalIn the event this information is protected by the Federal Confidentiality of Alcohol and Drug Abuse Patient Records regulations: The Federal rules restrict any use of the information to criminally investigate or prosecute any alcohol or drug abuse patient.[facility] HospitalIn the event this information is protected by the Federal Confidentiality of Alcohol and Drug Abuse Patient Records regulations: The Federal rules restrict any use of the information to criminally investigate or prosecute any alcohol or drug abuse patient.[facility] HospitalIn the event this information is protected by the Federal Confidentiality of Alcohol and Drug Abuse Patient Records regulations: The Federal rules restrict any use of the information to criminally investigate or prosecute any alcohol or drug abuse patient.[facility] HospitalIn the event this information is protected by the Federal Confidentiality of Alcohol and Drug Abuse Patient Records regulations: The Federal rules restrict any use of the information to criminally investigate or prosecute any alcohol or drug abuse patient.[facility] HospitalIn the event this information is protected by the Federal Confidentiality of Alcohol and Drug Abuse Patient Records regulations: The Federal rules restrict any use of the information to criminally investigate or prosecute any alcohol or drug abuse patient.[facility] HospitalIn the event this information is protected by the Federal Confidentiality of Alcohol and Drug Abuse Patient Records regulations: The Federal rules restrict any use of the information to criminally investigate or prosecute any alcohol or drug abuse patient.[facility] HospitalIn the event this information is protected by the Federal Confidentiality of Alcohol and Drug Abuse Patient Records regulations: The Federal rules restrict any use of the information to criminally investigate or prosecute any alcohol or drug abuse patient.[facility] HospitalIn the event this information is protected by the Federal Confidentiality of Alcohol and Drug Abuse Patient Records regulations: The Federal rules restrict any use of the information to criminally investigate or prosecute any alcohol or drug abuse patient.[facility] HospitalIn the event this information is protected by the Federal Confidentiality of Alcohol and Drug Abuse Patient Records regulations: The Federal rules restrict any use of the information to criminally investigate or prosecute any alcohol or drug abuse patient.[facility] HospitalIn the event this information is protected by the Federal Confidentiality of Alcohol and Drug Abuse Patient Records regulations: The Federal rules restrict any use of the information to criminally investigate or prosecute any alcohol or drug abuse patient.[facility] HospitalIn the event this information is protected by the Federal Confidentiality of Alcohol and Drug Abuse Patient Records regulations: The Federal rules restrict any use of the information to criminally investigate or prosecute any alcohol or drug abuse patient.[facility] HospitalIn the event this information is protected by the Federal Confidentiality of Alcohol and Drug Abuse Patient Records regulations: The Federal rules restrict any use of the information to criminally investigate or prosecute any alcohol or drug abuse patient.[facility] HospitalIn the event this information is protected by the Federal Confidentiality of Alcohol and Drug Abuse Patient Records regulations: The Federal rules restrict any use of the information to criminally investigate or prosecute any alcohol or drug abuse patient.[facility] HospitalIn the event this information is protected by the Federal Confidentiality of Alcohol and Drug Abuse Patient Records regulations: The Federal rules restrict any use of the information to criminally investigate or prosecute any alcohol or drug abuse patient.[facility] HospitalIn the event this information is protected by the Federal Confidentiality of Alcohol and Drug Abuse Patient Records regulations: The Federal rules restrict any use of the information to criminally investigate or prosecute any alcohol or drug abuse patient.[facility] HospitalIn the event this information is protected by the Federal Confidentiality of Alcohol and Drug Abuse Patient Records regulations: The Federal rules restrict any use of the information to criminally investigate or prosecute any alcohol or drug abuse patient.[facility] HospitalIn the event this information is protected by the Federal Confidentiality of Alcohol and Drug Abuse Patient Records regulations: The Federal rules restrict any use of the information to criminally investigate or prosecute any alcohol or drug abuse patient.[facility] HospitalIn the event this information is protected by the Federal Confidentiality of Alcohol and Drug Abuse Patient Records regulations: The Federal rules restrict any use of the information to criminally investigate or prosecute any alcohol or drug abuse patient.[facility] HospitalIn the event this information is protected by the Federal Confidentiality of Alcohol and Drug Abuse Patient Records regulations: The Federal rules restrict any use of the information to criminally investigate or prosecute any alcohol or drug abuse patient.[facility] HospitalIn the event this information is protected by the Federal Confidentiality of Alcohol and Drug Abuse Patient Records regulations: The Federal rules restrict any use of the information to criminally investigate or prosecute any alcohol or drug abuse patient.[facility] HospitalIn the event this information is protected by the Federal Confidentiality of Alcohol and Drug Abuse Patient Records regulations: The Federal rules restrict any use of the information to criminally investigate or prosecute any alcohol or drug abuse patient.[facility] HospitalIn the event this information is protected by the Federal Confidentiality of Alcohol and Drug Abuse Patient Records regulations: The Federal rules restrict any use of the information to criminally investigate or prosecute any alcohol or drug abuse patient.[facility] HospitalIn the event this information is protected by the Federal Confidentiality of Alcohol and Drug Abuse Patient Records regulations: The Federal rules restrict any use of the information to criminally investigate or prosecute any alcohol or drug abuse patient.[facility] HospitalIn the event this information is protected by the Federal Confidentiality of Alcohol and Drug Abuse Patient Records regulations: The Federal rules restrict any use of the information to criminally investigate or prosecute any alcohol or drug abuse patient.[facility] HospitalIn the event this information is protected by the Federal Confidentiality of Alcohol and Drug Abuse Patient Records regulations: The Federal rules restrict any use of the information to criminally investigate or prosecute any alcohol or drug abuse patient.[facility] HospitalIn the event this information is protected by the Federal Confidentiality of Alcohol and Drug Abuse Patient Records regulations: The Federal rules restrict any use of the information to criminally investigate or prosecute any alcohol or drug abuse patient.[facility] HospitalIn the event this information is protected by the Federal Confidentiality of Alcohol and Drug Abuse Patient Records regulations: The Federal rules restrict any use of the information to criminally investigate or prosecute any alcohol or drug abuse patient.[facility] HospitalIn the event this information is protected by the Federal Confidentiality of Alcohol and Drug Abuse Patient Records regulations: The Federal rules restrict any use of the information to criminally investigate or prosecute any alcohol or drug abuse patient.[facility] HospitalIn the event this information is protected by the Federal Confidentiality of Alcohol and Drug Abuse Patient Records regulations: The Federal rules restrict any use of the information to criminally investigate or prosecute any alcohol or drug abuse patient.[facility] HospitalIn the event this information is protected by the Federal Confidentiality of Alcohol and Drug Abuse Patient Records regulations: The Federal rules restrict any use of the information to criminally investigate or prosecute any alcohol or drug abuse patient.[facility] HospitalIn the event this information is protected by the Federal Confidentiality of Alcohol and Drug Abuse Patient Records regulations: The Federal rules restrict any use of the information to criminally investigate or prosecute any alcohol or drug abuse patient.[facility] HospitalIn the event this information is protected by the Federal Confidentiality of Alcohol and Drug Abuse Patient Records regulations: The Federal rules restrict any use of the information to criminally investigate or prosecute any alcohol or drug abuse patient.[facility] HospitalIn the event this information is protected by the Federal Confidentiality of Alcohol and Drug Abuse Patient Records regulations: The Federal rules restrict any use of the information to criminally investigate or prosecute any alcohol or drug abuse patient.[facility] HospitalIn the event this information is protected by the Federal Confidentiality of Alcohol and Drug Abuse Patient Records regulations: The Federal rules restrict any use of the information to criminally investigate or prosecute any alcohol or drug abuse patient.[facility] HospitalIn the event this information is protected by the Federal Confidentiality of Alcohol and Drug Abuse Patient Records regulations: The Federal rules restrict any use of the information to criminally investigate or prosecute any alcohol or drug abuse patient.[facility] HospitalIn the event this information is protected by the Federal Confidentiality of Alcohol and Drug Abuse Patient Records regulations: The Federal rules restrict any use of the information to criminally investigate or prosecute any alcohol or drug abuse patient.[facility] HospitalIn the event this information is protected [...] x 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 Reason Comments Patient Assistance [employer] (Basagla r and Humalog) Reason Onset [...] CONSULT TO SLEEP MEDICINE - ADULT OFFICE/OUTPATIENT [facility] 60 MINUTES Osvaldo Travis PA-C [address] [place] [address] Referral ID Status Reason Start Date Expiration Date V isits Requested Visits Authorized [id number] Closed PCP Requested Referral 02/28/2024 02/27/2025 1 [...] HIGH MDM 60 MINUTES Mathieu Virgen MD [address] [place] [address] Phone: tel: fax: Referral ID Status Reason Start Date Expiration Date V isits Requested Visits Authorized [id number] Closed PCP Requested Referral 01/12/2025 01/12/2026 1 1 Reason Comments Diabetes A1C right now is 6.8 according to his marielle Reason Comments FYI-No Action Needed Diabetes note sent to DME Reason Onset Date Comments Refill Request 03/27/2025 refill status 03/27/2025 Reason Comments Patient Assistance Ceci Reyes form for basaglar Reason Onset Date Comments Transition Of Care 06/02/2025 Chest pain [facility] 05/31-06/01 Care Teams (unrecognized sec tion and content) Manager Athletics Relationship Specialty Start Date End Date Mathieu Virgen MD [address], [place] [id number] PCP - General Family Practice 01/10/18 Asad Rothman, [facility] [address], [place] [id number] Pharmacist Pharmacy 05/24/20 [facility] [address], [place] [id number] Pharmacist Pharmacy 03/31/21 Manager Athletics Relationship Specialty Start Date End Date Mathieu Virgen MD [address] [place] [address] PCP - General Family Practice 01/10/18 [facility] [address] [place] [address] Pharmacist Pharmacy 05/24/20 [facility] [address] [place] [address] Pharmacist Pharmacy 03/31/21 Manager Athletics Relationship Specialty Start Date End Date Mathieu Virgen MD [address] [facility] [address] PCP - General Family Practice 01/10/18 Asad Rothman, [facility] [address] [place] [address] Pharmacist Pharmacy 05/24/20 [facility] [address] [place] [address] Pharmacist Pharmacy 03/31/21 Manager Athletics Relationship Specialty Start Date End Date Mathieu Virgen MD [address] [facility] [address] PCP - General Family Practice 01/10/18 [facility] [address] [place] [address] Pharmacist Pharmacy 05/24/20 Kaitlyn Hernández, [facility] [address] [place] [address] Pharmacist Pharmacy 03/31/21 Manager Athletics Relationship Specialty Start Date End Date Mathieu Virgen MD [address] [facility] [address] PCP - General Family Practice 01/10/18 Asad Rothman, [facility] [address] [place] [address] Pharmacist Pharmacy 05/24/20 Kaitlyn Hernández, [facility] [address] [place] [address] Pharmacist Pharmacy 03/31/21 Manager Athletics Relationship Specialty Start Date End Date Mathieu Virgen MD [address] [place] [address] PCP - General Family Practice 01/10/18 [facility] [address] [place] [address] Pharmacist Pharmacy 05/24/20 [facility] [address] [place] [address] Pharmacist Pharmacy 03/31/21 Manager Athletics Relationship Specialty Start Date End Date Mathieu Virgen MD [address] [place] [address] PCP - General Family Practice 01/10/18 [facility] [address] [place] [address] Pharmacist Pharmacy 05/24/20 Kaitlyn Hernández, [facility] [address] [place] [address] Pharmacist Pharmacy 03/31/21 Manager Athletics Relationship Specialty Start Date End Date Mathieu Virgen MD [address] [place] [address] PCP - General Family Practice 01/10/18 Asad Rothman, [facility] [address] [place] [address] Pharmacist Pharmacy 05/24/20 [facility] [address] [place] [address] Pharmacist Pharmacy 03/31/21 Manager Athletics Relationship Specialty Start Date End Date Mathieu Virgen MD [address] [facility] [address] PCP - General Family Practice 01/10/18 [facility] [address] [place] [address] Pharmacist Pharmacy 05/24/20 Kaitlyn [facility] [address] [place] [address] Pharmacist Pharmacy 03/31/21 Manager Athletics Relationship Specialty Start Date End Date Mathieu Virgen MD [address] [place] [address] PCP - General Family Practice 01/10/18 Asad RothmanSaint [facility] [address] [place] [address] Pharmacist Pharmacy 05/24/20 Kaitlyn HernándezSaint [facility] [address] [place] [address] Pharmacist Pharmacy 03/31/21 Manager Athletics Relationship Specialty Start Date End Date Mathieu Virgen MD [address] [facility] [address] PCP - General Family Practice 01/10/18 Asad RothmanSaint [facility]'s [facility] [address] [place] [address] Pharmacist Pharmacy 05/24/20 Kaitlyn Hernández, [facility] [address] [place] [address] Pharmacist Pharmacy 03/31/21 Manager Athletics Relationship Specialty Start Date End Date Mathieu Virgen MD [address] [facility] [address] PCP - General Family Practice 01/10/18 Asad Rothman, [facility] [address] [place] [address] Pharmacist Pharmacy 05/24/20 Kaitlyn HernándezSaint [facility] [address] [place] [address] Pharmacist Pharmacy 03/31/21 Manager Athletics Relationship Specialty Start Date End Date Mathieu Virgen MD [address] [place] [address] PCP - General Family Practice 01/10/18 Asad RothmanSaint [facility] [address] [place] [address] Pharmacist Pharmacy 05/24/20 Kaitlyn HernándezSaint [facility] [address] [place] [address] Pharmacist Pharmacy 03/31/21 Manager Athletics Relationship Specialty Start Date End Date Mathieu Virgen MD [address] [place] [address] PCP - General Family Practice 01/10/18 Asad RothmanSaint [facility] [address] [place] [address] Pharmacist Pharmacy 05/24/20 Kaitlyn HernándezSaint [facility] [address] [place] [address] Pharmacist Pharmacy 03/31/21 Manager Athletics Relationship Specialty Start Date End Date Mathieu Virgen MD [address] [place] [address] PCP - General Family Medicine 01/10/18 Asad Rothman, [facility] [address] [place] [address] Pharmacist Pharmacy 05/24/20 Kaitlyn Hernández [facility] [address] [place] [address] Pharmacist Pharmacy 03/31/21 Manager Athletics Relationship Specialty Start Date End Date Mathieu Virgen MD [address] [place] [address] PCP - General Family Medicine 01/10/18 Asad RothmanSaint [facility] [address] [place] [address] Pharmacist Pharmacy 05/24/20 [place], KaitlynSaint [facility]'s [facility] [address] [place] [address] Pharmacist Pharmacy 03/31/21 Manager Athletics Relationship Specialty Start Date End Date Mathieu Virgen MD [address] [place] [address] PCP - General Family Medicine 01/10/18 Asad Rothman, [facility] [address] [place] [address] Pharmacist Pharmacy 05/24/20 Jaqueline Hernándezily, [facility] [address] [place] [address] Pharmacist Pharmacy 03/31/21 Manager Athletics Relationship Specialty Start Date End Date Mathieu Virgen MD [address] [facility] [address] PCP - General Family Medicine 01/10/18 Stephan Gregoriocj, [facility] [address] [place] [address] Pharmacist Pharmacy 05/24/20 Edgar, Kaitlyn, [facility] [address] [place] [address] Pharmacist Pharmacy 03/31/21 Manager Athletics Relationship Specialty Start Date End Date Mathieu Virgen MD [address] [facility] [address] PCP - General Family Medicine 01/10/18 Stephan GregoriocjSaint [facility] [address] [place] [address] Pharmacist Pharmacy 05/24/20 Jaqueline HernándezilySaint John's Regional Health Center [address] [facility] [address] Pharmacist Pharmacy 03/31/21 Manager Athletics Relationship Specialty Start Date End Date Mathieu Virgen MD [address] [facility] [address] PCP - General Family Medicine 01/10/18 Stephan GregoriocjSaint [facility] [address] [facility] [address] Pharmacist Pharmacy 05/24/20 Jaqueline Hernándezily, [facility] [address] [facility] [address] Pharmacist Pharmacy 03/31/21 Manager Athletics Relationship Specialty Start Date End Date Mathieu Virgen MD [address] [facility] [address] PCP - General Family Medicine 01/10/18 Asad RothmanSaint [facility] [address] [facility] [address] Pharmacist Pharmacy 05/24/20 [place], Kaitlyn, [facility] [address] [facility] [address] Pharmacist Pharmacy 03/31/21 Team Status: Active Member [...] Dr. Narda Kebede MD Attending Provider Active Manager Athletics Relationship Specialty Start Date End Date Mathieu Virgen MD [address] [place] [address] PCP - General Family Medicine 01/10/18 Asad RothmanSaint [facility] [address] [place] [address] Pharmacist Pharmacy 05/24/20 Kaitlyn HernándezSaint [facility]'s [facility] [address] [place] [address] Pharmacist Pharmacy 03/31/21 Manager Athletics Relationship Specialty Start Date End Date Mathieu Virgen MD [address] [place] [address] PCP - General Family Medicine 01/10/18 Asad Rothman, [facility] [address] [facility] [address] Pharmacist Pharmacy 05/24/20 Kaitlyn HernándezSaint [facility] [address] [place] [address] Pharmacist Pharmacy 03/31/21 Manager Athletics Relationship Specialty Start Date End Date Mathieu Virgen MD [address] [facility] [address] PCP - General Family Medicine 01/10/18 Asad RothmanSaint [facility] [address] [facility] [address] Pharmacist Pharmacy 05/24/20 Kaitlyn HernándezSaint [facility] [address] [facility] [address] Pharmacist Pharmacy 03/31/21 Manager Athletics Relationship Specialty Start Date End Date Mathieu Virgen MD [address] [facility] [address] PCP - General Family Medicine 01/10/18 Asad RothmanSaint [facility] [address] [facility] [address] Pharmacist Pharmacy 05/24/20 Kaitlyn HernándezSaint [facility] [address] [facility] [address] Pharmacist Pharmacy 03/31/21 Manager Athletics Relationship Specialty Start Date End Date Mathieu Virgen MD [address] [facility] [address] PCP - General Family Medicine 01/10/18 Asad RothmanSaint [facility] [address] [facility] [address] Pharmacist Pharmacy 05/24/20 Kaitlyn HernándezSaint [facility]'s Regional [facility] [address] [facility] [address] Pharmacist Pharmacy 03/31/21 Team Status: Inactive Member Role Status Dates Dr. Mathieu Virgen MD Primary Care Provider, Referring Provider Active Halle Pina HARBOR DEPARTMENT MANAGER, HARBOR DEPARTMENT MANAGER-C Attending Provider Active Team Status: Active Member [...] DO Attending Provider, Emergency Pr ovider Active Manager Athletics Relationship Specialty Start Date End Date Mathieu Virgen MD [address] [facility] [address] PCP - General Family Medicine 01/10/18 Asad Rothman, [facility] [address] [facility] [address] Pharmacist Pharmacy 05/24/20 Kaitlyn Hernández, [facility] [address] [facility] [address] Pharmacist Pharmacy 03/31/21 Manager Athletics Relationship Specialty Start Date End Date Mathieu Virgen MD [address] [facility] [address] PCP - General Family Medicine 01/10/18 Asad Rothman, [facility] [address] [facility] [address] Pharmacist Pharmacy 05/24/20 Kaitlyn Hernández, [facility] [address] [facility] [address] Pharmacist Pharmacy 03/31/21 Team Status: Inactive Member Role Status Dates Dr. Mathieu Virgen MD Primary Care Provider Active Dr. Mani Esquivel DO Emergency Provider Active Manager Athletics Relationship Specialty Start Date End Date Mathieu Virgen MD [address] [facility] [address] PCP - General Family Medicine 01/10/18 Asad RothmanSaint [facility] [address] [place] [address] Pharmacist Pharmacy 05/24/20 [place], KaitlynSaint John's Regional Health Center [address] [place] [address] Pharmacist Pharmacy 03/31/21 Manager Athletics Relationship Specialty Start Date End Date Mathieu Virgen MD [address] [place] [address] PCP - General Family Medicine 01/10/18 Asad Rothman, [facility] [address] [place] [address] Pharmacist Pharmacy 05/24/20 Kaitlyn Hernández, [facility] [address] [place] [address] Pharmacist Pharmacy 03/31/21 Manager Athletics Relationship Specialty Start Date End Date Mathieu Virgen MD [address] [place] [address] PCP - General Family Medicine 01/10/18 Asad RothmanSaint [facility] [address] [place] [address] Pharmacist Pharmacy 05/24/20 Edgar Kaitlyn, [facility] [address] [place] [address] Pharmacist Pharmacy 03/31/21 Manager Athletics Relationship Specialty Start Date End Date Mathieu Virgen MD [address] [place] [address] PCP - General Family Medicine 01/10/18 Asad Rothman, [facility] [address] [place] [address] Pharmacist Pharmacy 05/24/20 Kaitlyn HernándezSaint [facility] [address] [place] [address] Pharmacist Pharmacy 03/31/21 Manager Athletics Relationship Specialty Start Date End Date Mathieu Virgen MD [address] [place] [address] PCP - General Family Medicine 01/10/18 Asad Rothman, [facility] [address] [place] [address] Pharmacist Pharmacy 05/24/20 Kaitlyn Hernández, [facility] [address] [place] [address] Pharmacist Pharmacy 03/31/21 Manager Athletics Relationship Specialty Start Date End Date Mathieu Virgen MD [address] [place] [address] PCP - General Family Medicine 01/10/18 Asad Rothman, [facility] [address] [place] [address] Pharmacist Pharmacy 05/24/20 Kaitlyn HernándezSaint [facility] [address] [place] [address] Pharmacist Pharmacy 03/31/21 Manager Athletics Relationship Specialty Start Date End Date Mathieu Virgen MD [address] [place] [address] PCP - General Family Medicine 01/10/18 Asad Rothman, [facility] [address] [place] [address] Pharmacist Pharmacy 05/24/20 [place], Kaitlyn, [facility] [address] [place] [address] Pharmacist Pharmacy 03/31/21 Manager Athletics Relationship Specialty Start Date End Date Mathieu Virgen MD [address] [place] [address] PCP - General Family Medicine 01/10/18 Asad Rothman, [facility] [address] [place] [address] Pharmacist Pharmacy 05/24/20 Edgar, Kaitlyn, [facility] [address] [place] [address] Pharmacist Pharmacy 03/31/21 Manager Athletics Relationship Specialty Start Date End Date Mathieu Virgen MD [address] [place] [address] PCP - General Family Medicine 01/10/18 Asad Rothman, [facility] [address] [place] [address] Pharmacist Pharmacy 05/24/20 Edgar, Kaitlyn, [facility] [address] [place] [address] Pharmacist Pharmacy 03/31/21 Manager Athletics Relationship Specialty Start Date End Date Mathieu Virgen MD [address] [place] [address] PCP - General Family Medicine 01/10/18 Asad Rothman, [facility] [address] [place] [address] Pharmacist Pharmacy 05/24/20 Jaqueline Hernándezily, [facility] [address] [place] [address] Pharmacist Pharmacy 03/31/21 Manager Athletics Relationship Specialty Start Date End Date Mathieu Virgen MD [address] [place] [address] PCP - General Family Medicine 01/10/18 [facility] AsadSaint [facility] [address] [place] [address] Pharmacist Pharmacy 05/24/20 [place] KaitlynSaint [facility]'s [facility] [address] [place] [address] Pharmacist Pharmacy 03/31/21 Manager Athletics Relationship Specialty Start Date End Date Mathieu Virgen MD [address] [place] [address] PCP - General Family Medicine 01/10/18 [facility] Asad, [facility] [address] [place] [address] Pharmacist Pharmacy 05/24/20 [place], [facility]aitlynSaint [facility] [address] [place] [address] Pharmacist Pharmacy 03/31/21 Team Status: Inactive Member Role Status Dates Dr. Mathiue Virgen MD Primary Care Provider Active Dr. Chris Faulkner MD Attending Provider, Chun moore Active Manager Athletics Relationship Specialty Start Date End Date Mathieu Virgen MD [address] [place] [address] PCP - General Family Medicine 01/10/18 Faizandarcie Asad, [facility] [address] [place] [address] Pharmacist Pharmacy 05/24/20 [place], [facility]aitlynSaint [facility] [address] [place] [address] Pharmacist Pharmacy 03/31/21 Manager Athletics Relationship Specialty Start Date End Date Mathieu Virgen MD [address] [place] [address] PCP - General Family Medicine 01/10/18 Asad RothmanSaint [facility] [address] [place] [address] Pharmacist Pharmacy 05/24/20 Kaitlyn HernándezSaint [facility] [address] [place] [address] Pharmacist Pharmacy 03/31/21 Manager Athletics Relationship Specialty Start Date End Date Mathieu Virgen MD [address] [place] [address] PCP - General Family Medicine 01/10/18 [facility] [address] [place] [address] Pharmacist Pharmacy 03/31/21 Manager Athletics Relationship Specialty Start Date End Date Mathieu Virgen MD [address] [place] [address] PCP - General Family Medicine 01/10/18 Kaitlyn HernándezSaint [facility] [address] [place] [address] Pharmacist Pharmacy 03/31/21 Manager Athletics Relationship Specialty Start Date End Date Mathieu Virgen MD [address] [place] [address] PCP - General Family Medicine 01/10/18 Team Status: Inactive Member Role Status Dates Dr. Mathieu Virgen MD Primary Care Provider Active Dr. Tre Johnson DO Emergency Provider Active Team Status: Inactive Member Role Status Dates Dr. Mathieu Virgen MD Primary Care Provider Active Dr. Chris Faulkner MD Attending Provider Active Manager Athletics Relationship Specialty Start Date End Date Mathieu Virgen MD [address] [place] [address] PCP - General Family Medicine 01/10/18 Manager Athletics Relationship Specialty Start Date End Date Mathieu Virgen MD [address] [place] [address] PCP - General Family Medicine 01/10/18 Manager Athletics Relationship Specialty Start Date End Date Mathieu Virgen MD [address] [place] [address] PCP - General Family Medicine 01/10/18 Manager Athletics Relationship Specialty Start Date End Date Mathieu Virgen MD [address] [place] [address] PCP - General Family Medicine 01/10/18 Manager Athletics Relationship Specialty Start Date End Date Mathieu Virgen MD [address] [place] [address] PCP - General Family Medicine 01/10/18 Manager Athletics Relationship Specialty Start Date End Date Mathieu Virgen MD [address] [place] [address] PCP - General Family Medicine 01/10/18 Manager Athletics Relationship Specialty Start Date End Date Mathieu Virgen MD [address] [place] [address] PCP - General Family Medicine 01/10/18 Manager Athletics Relationship Specialty Start Date End Date Mathieu Virgen MD [address] [place] [address] PCP - General Family Medicine 01/10/18 Manager Athletics Relationship Specialty Start Date End Date Mathieu Virgen MD [address] [place] [address] PCP - General Family Medicine 01/10/18 Manager Athletics Relationship Specialty Start Date End Date Mathieu Virgen MD [address] [place] [address] PCP - General Family Medicine 01/10/18 Manager Athletics Relationship Specialty Start Date End Date Mathieu Virgen MD [address] [place] [address] PCP - General Family Medicine 01/10/18 Manager Athletics Relationship Specialty Start Date End Date Mathieu Virgen MD [address] [place] [address] PCP - General Family Medicine 01/10/18 Manager Athletics Relationship Specialty Start Date End Date Mathieu Virgen MD [address] [place] [address] PCP - General Family Medicine 01/10/18 Manager Athletics Relationship Specialty Start Date End Date Mathieu Virgen MD [address] [place] [address] PCP - General Family Medicine 01/10/18 Manager Athletics Relationship Specialty Start Date End Date Mathieu Virgen MD [address] [place] [address] PCP - General Family Medicine 01/10/18 Manager Athletics Relationship Specialty Start Date End Date Mathieu Virgen MD [address] [place] [address] PCP - General Family Medicine 01/10/18 Manager Athletics Relationship Specialty Start Date End Date Mathieu Virgen MD [address] [place] [address] PCP - General Family Medicine 01/10/18 Manager Athletics Relationship Specialty Start Date End Date Mathieu Virgen MD [address] [place] [address] PCP - General Family Medicine 01/10/18 Asad Rothman, [facility] [address] [place] [address] Pharmacist Pharmacy 05/24/20 07/30/23 Kaitlyn Hernández [facility] [address] [place] [address] Pharmacist Pharmacy 03/31/21 08/29/23 Manager Athletics Relationship Specialty Start Date End Date Mathieu Virgen MD [address] [place] [address] PCP - General Family Medicine 01/10/18 Asad Rothman, [facility] [address] [place] [address] Pharmacist Pharmacy 05/24/20 07/30/23 Kaitlyn Hernández [facility] [address] [place] [address] Pharmacist Pharmacy 03/31/21 08/29/23 Manager Athletics Relationship Specialty Start Date End Date Mathieu Virgen MD [address] [place] [address] PCP - General Family Medicine 01/10/18 Asad Rothman, [facility] [address] [place] [address] Pharmacist Pharmacy 05/24/20 07/30/23 Kaitlyn Hernández, [facility] [address] [place] [address] Pharmacist Pharmacy 03/31/21 08/29/23 Manager Athletics Relationship Specialty Start Date End Date Mathieu Virgen MD [address] [place] [address] PCP - General Family Medicine 01/10/18 Asad Rothman, [facility] [address] [place] [address] Pharmacist Pharmacy 05/24/20 07/30/23 Edgar, Kaitlyn, [facility] [address] [place] [address] Pharmacist Pharmacy 03/31/21 08/29/23 Manager Athletics Relationship Specialty Start Date End Date Mathieu Virgen MD [address] [place] [address] PCP - General Family Medicine 01/10/18 Asad Rothman, [facility] [address] [place] [address] Pharmacist Pharmacy 05/24/20 07/30/23 Kaitlyn Hernández, [facility] [address] [place] [address] Pharmacist Pharmacy 03/31/21 08/29/23 Manager Athletics Relationship Specialty Start Date End Date Mathieu Virgen MD [address] [place] [address] PCP - General Family Medicine 01/10/18 Asad Rothman, [facility] [address] [place] [address] Pharmacist Pharmacy 05/24/20 07/30/23 Manager Athletics Relationship Specialty Start Date End Date Mathieu Virgen MD [address] [place], [place] [address] PCP - General Family Medicine 01/10/18 Manager Athletics Relationship Specialty Start Date End Date Mathieu Virgen MD [address] [place], [place] [address] PCP - General Family Medicine 01/10/18 Manager Athletics Relationship Specialty Start Date End Date Mathieu Virgen MD [address] [place], [place] [address] PCP - General Family Medicine 01/10/18 Manager Athletics Relationship Specialty Start Date End Date Mathieu Virgen MD [address] [place], [place] [address] PCP - General Family Medicine 01/10/18 Manager Athletics Relationship Specialty Start Date End Date Mathieu Virgen MD [address] [place] [address] PCP - General Family Medicine 01/10/18 Manager Athletics Relationship Specialty Start Date End Date Mathieu Virgen MD [address] [place], [place] [address] PCP - General Family Medicine 01/10/18 Manager Athletics Relationship Specialty Start Date End Date Mathieu Virgen MD [address] [place], [place] [address] PCP - General Family Medicine 01/10/18 Manager Athletics Relationship Specialty Start Date End Date Mathieu Virgen MD [address] [facility] [address] PCP - General Family Medicine 01/10/18 Manager Athletics Relationship Specialty Start Date End Date Mathieu Virgen MD [address] [facility] [address] PCP - General Family Medicine 01/10/18 Manager Athletics Relationship Specialty Start Date End Date Mathieu Virgen MD [address] [facility] [address] PCP - General Family Medicine 01/10/18 Manager Athletics Relationship Specialty Start Date End Date Mathieu Virgen MD [address] [facility] [address] PCP - General Family Medicine 01/10/18 Denisha Shepard, FOXING CLOSER.MANUFACTURING MAINTENANCE TECHNICIAN [address] [place] [address] Cattle Dealer Family Medicine 08/25/24 Julianna Hood FOXING CLOSER.MANUFACTURING MAINTENANCE TECHNICIAN [address] [facility] [address] Cattle Dealer Family Medicine 08/25/24 Manager Athletics Relationship Specialty Start Date End Date Mathieu Virgen MD [address] [facility] [address] PCP - General Family Medicine 01/10/18 Denisha Shepard, FOXING CLOSER.MANUFACTURING MAINTENANCE TECHNICIAN [address] [place] [address] Cattle Dealer Family Medicine 08/25/24 Julianna Hood APRN.MANUFACTURING MAINTENANCE TECHNICIAN [address] [facility] [address] Cattle Dealer Family Medicine 08/25/24 Manager Athletics Relationship Specialty Start Date End Date Mathieu Virgen MD [address] [facility] [address] PCP - General Family Medicine 01/10/18 Denisha Shepard FOXING CLOSER.MANUFACTURING MAINTENANCE TECHNICIAN [address] [place] [address] Cattle Dealer Family Medicine 08/25/24 Julianna Hood FOXING CLOSER.MANUFACTURING MAINTENANCE TECHNICIAN [address] [facility] [address] [facility] 08/25/24 Manager Athletics Relationship Specialty Start Date End Date Mathieu Virgen MD [address] [facility] [address] PCP - General Family Medicine 01/10/18 Denisha Shepard, FOXING CLOSER.MANUFACTURING MAINTENANCE TECHNICIAN [address] [place] [address] Cattle Dealer Family Medicine 08/25/24 Julianna Hood FOXING CLOSER.MANUFACTURING MAINTENANCE TECHNICIAN [address] [facility] [address] Cattle Dealer Family Medicine 08/25/24 Manager Athletics Relationship Specialty Start Date End Date Mathieu Virgen MD [address] [facility] [address] PCP - General Family Medicine 01/10/18 Denisha Shepard, FOXING CLOSER.MANUFACTURING MAINTENANCE TECHNICIAN [address] [place] [address] Cattle Dealer Family [facility] 08/25/24 Julianna Hood APRN.MANUFACTURING MAINTENANCE TECHNICIAN [address] [place] [address] [facility] 08/25/24 Manager Athletics Relationship Specialty Start Date End Date Mathieu Virgen MD [address] [place] [address] PCP - General Family Medicine 01/10/18 Denisha Shepard APRN.MANUFACTURING MAINTENANCE TECHNICIAN [address] [place] [address] [facility] 08/25/24 Julianna Hood APRN.MANUFACTURING MAINTENANCE TECHNICIAN [address] [place] [address] Cattle Dealer Family [facility] 08/25/24 Manager Athletics Relationship Specialty Start Date End Date Mathieu Virgen MD [address] [place] [address] PCP - General Family Medicine 01/10/18 Denisha Shepard FOXING CLOSER.MANUFACTURING MAINTENANCE TECHNICIAN [address] [place] [address] [facility] 08/25/24 Julianna Hood APRN.MANUFACTURING MAINTENANCE TECHNICIAN [address] [place] [address] [facility] 08/25/24 Manager Athletics Relationship Specialty Start Date End Date Mathieu Virgen MD [address] [place], [place] [address] PCP - General Family Medicine 01/10/18 Denisha Shepard APRN.MANUFACTURING MAINTENANCE TECHNICIAN [address] [place], [place] [id number] [facility]24 Julianna Hood APRN.MANUFACTURING MAINTENANCE TECHNICIAN [address] [place], [place] [address] [facility] 08/25/24 Manager Athletics Relationship Specialty Start Date End Date Mathieu Virgen MD [address] [place], [place] [address] PCP - General Family Medicine 01/10/18 Denisha Shepard APRN.MANUFACTURING MAINTENANCE TECHNICIAN [address] [place], [place] [address] [facility] 08/25/24 Julianna Hood APRN.MANUFACTURING MAINTENANCE TECHNICIAN [address] [place], [place] [id number] [facility] 08/25/24 Team Status: Active Member Role Status Dates Dr. Mathieu Virgen MD Primary Care Provider Active Team Status: Inactive Member Role Status Dates Dr. Mathieu Virgen MD Primary Care Provider Active Start: August 11, 2024 End: August 11, 2024 Sergey Carreon HARBOR DEPARTMENT MANAGER, HARBOR DEPARTMENT MANAGER-C Attending Provider Active S tart: August 11, 2024 End: August 11, 2024 Sergey Carreon HARBOR DEPARTMENT MANAGER, HARBOR DEPARTMENT MANAGER-C Referring Provider Active S tart: August 11, 2024 End: August 11, 2024 Team Status: Inactive Member Role Status Dates Dr. Mathieu Virgen MD Primary Care Provider Active Start: August 13, 2024 End: August 13, 2024 Dr. Mathieu Virgen MD Referring Provider Active Start: August 13, 2024 End: August 13, 2024 Sergey Carreon HARBOR DEPARTMENT MANAGER, HARBOR DEPARTMENT MANAGER-C Attending Provider Active S tart: August 13, [...] 2024 End: September 03, 2024 Sergey Carreon HARBOR DEPARTMENT MANAGER, HARBOR DEPARTMENT MANAGER-C Attending Provider Active S tart: September 03, [...] November 28, 2024 End: March 14th, 2025 Manager Athletics Relationship Specialty Start Date End Date Mathieu Virgen MD [address] [facility] [address] PCP - General Family Medicine 01/10/18 Denisha Shepard APRN.MANUFACTURING MAINTENANCE TECHNICIAN [address] [place] [address] [facility] 08/25/24 Julianna Hood APRN.MANUFACTURING MAINTENANCE TECHNICIAN [address] [facility] [address] Cattle Dealer [facility] 08/25/24 Manager Athletics Relationship Specialty Start Date End Date Mathieu Virgen MD [address] [facility] [address] PCP - General Family Medicine 01/10/18 Denisha Shepard FOXING CLOSER.MANUFACTURING MAINTENANCE TECHNICIAN [address] [facility] [place] [address] [facility] 08/25/24 Julianna Hood FOXING CLOSER.MANUFACTURING MAINTENANCE TECHNICIAN [address] [place] [address] [facility] 08/25/24 Manager Athletics Relationship Specialty Start Date End Date Mathieu Virgen MD [address] [facility] [address] PCP - General Family Medicine 01/10/18 Denisha Shepard APRN.MANUFACTURING MAINTENANCE TECHNICIAN [address] [place] [address] [facility] 08/25/24 Julianna Hood FOXING CLOSER.MANUFACTURING MAINTENANCE TECHNICIAN [address] [place] [address] Cattle Dealer Family [facility] 08/25/24 Manager Athletics Relationship Specialty Start Date End Date Mathieu Virgen MD [address] [facility] [place] [address] PCP - General Family Medicine 01/10/18 Denisha Shepard, FOXING CLOSER.MANUFACTURING MAINTENANCE TECHNICIAN [address] [place] [address] [facility] 08/25/24 Julianna Hood FOXING CLOSER.MANUFACTURING MAINTENANCE TECHNICIAN [address] [place] [address] [facility] 08[facility] Manager Athletics Relationship Specialty Start Date End Date Mathieu Virgen MD [address] [place] [address] PCP - General Family Medicine 01/10/18 Denisha Shepard, FOXING CLOSER.MANUFACTURING MAINTENANCE TECHNICIAN [address] [place] [address] [facility] 08/25/24 Julianna Hood FOXING CLOSER.MANUFACTURING MAINTENANCE TECHNICIAN [address] [place] [address] [facility] 08/25/24 Manager Athletics Relationship Specialty Start Date End Date Mathieu Virgen MD [address] [place] [address] PCP - General Family Medicine 01/10/18 Denisha Shepard, FOXING CLOSER.MANUFACTURING MAINTENANCE TECHNICIAN [address] [place] [address] [facility] 08/25/24 Julianna Hood APRN.MANUFACTURING MAINTENANCE TECHNICIAN [address] [place] [address] [facility] 08/25/24 Team Status: Inactive Member Role Status [...] End: January 26, 2025 Sergey Carreon NP, HARBOR DEPARTMENT MANAGER-C Attending Provider Active S tart: January 26, 2025 End: January 26, 2025 Manager Athletics Relationship Specialty Start Date End Date Mathieu Virgen MD [address] [place], [place] [address] PCP - General Family Medicine 01/10/18 Denisha Shepard APRN.MANUFACTURING MAINTENANCE TECHNICIAN [address] [place], [place] [id number] [facility] 08/25/24 Julianna Hood APRN.MANUFACTURING MAINTENANCE TECHNICIAN [address] [place] [address] [facility] 08/25/24 Team Status: Inactive Member Role Status [...] Provider Active Start: March 02, 2025 EZRA Wlech Other Provider Active St art: March 02, 2025 Dr. Marvin Reeves DO Attending Provider Active S tart: March 02, 2025 Manager Athletics Relationship Specialty Start Date End Date Mathieu Virgen MD [address] [facility] [place] [id number] PCP - General Family Medicine 01/10/18 Denisha Shepard, FOXING CLOSER.MANUFACTURING MAINTENANCE TECHNICIAN [address] [place], [place] [address] [facility] 08/25/24 Julianna Hood FOXING CLOSER.MANUFACTURING MAINTENANCE TECHNICIAN [address] [place], [place] [address] [facility] 08/25/24 Team Status: Active Member Role/Relationship Status [...] End: January 26, 2025 Sergey Carreon NP HARBOR DEPARTMENT MANAGER-C Attending Provider Active S tart: January 26, [...] January 30, 2025 Megan M Rufener , HARBOR DEPARTMENT MANAGER-C Attending Provider Active Start: January 30, 2025 End: January 30, 2025 Megan Macario HARBOR DEPARTMENT MANAGER-C Referring Provider Active Start: January 30, 2025 End: January 30, 2025 Team Status: Active Member Role/Relationship Status Dates Dr. Mathieu Virgen MD Primary Care Provider Active Start: January 30, 2025 Dr. Marvin Reeves DO Attending Provider Active S tart: January 30, 2025 Megan Macario HARBOR DEPARTMENT MANAGER-C Referring Provider Active Start: January 30, 2025 Team Status: Inactive Member Role/Relationship Status Dates Dr. Mathieu Virgen MD Primary Care Provider Active Start: February 26, 2025 End: February 26, 2025 Megan Macario HARBOR DEPARTMENT MANAGER-C Attending Provider Active Start: February 26, 2025 End: February 26, 2025 Megan Macario HARBOR DEPARTMENT MANAGER-C Referring Provider Active Start: February 26, 2025 End: February 26, 2025 Team Status: Active Member Role/Relationship Status Dates Dr. Mathieu Virgen MD Primary Care Provider Active Start: March 02, 2025 Megan Macario HARBOR DEPARTMENT MANAGER-C Referring Provider Active Start: March 02, 2025 Megan Macario HARBOR DEPARTMENT MANAGER-C Other Provider Active St art: March 02, 2025 Dr. Marvin Reeves DO Attending Provider Active S tart: March 02, 2025 Team Status: Inactive Member Role/Relationship Status Dates Dr. Mathieu Virgen MD Primary Care Provider Active Start: April 01, 2025 End: April 01, 2025 Megan Macario HARBOR DEPARTMENT MANAGER-C Attending Provider Active Start: April 01, 2025 End: April 01, 2025 Megan Macario HARBOR DEPARTMENT MANAGER-C Referring Provider Active Start: April 01, 2025 End: April 01, 2025 Team Status: Inactive Member Role/Relationship Status Dates Dr. Mathieu Virgen MD Primary Care Provider Active Start: April 08, 2025 End: April 08, 2025 Dr. Mathieu Virgen MD Referring Provider Active Start: April 08, 2025 End: April 08, 2025 Megan Macario HARBOR DEPARTMENT MANAGER-C Attending Provider Active Start: April 08, 2025 [...] Provider Active S tart: April 30, 2025 Manager Athletics Relationship Specialty Start Date End Date Mathieu Virgen MD [address] [place], [place] [address] PCP - General Family Medicine 01/10/18 Denisha Shepard APRN.MANUFACTURING MAINTENANCE TECHNICIAN [address] [place], [place] [address] [facility] 08/[facility]/24 Julianna Hood FOXING CLOSER.MANUFACTURING MAINTENANCE TECHNICIAN [address] [place], [place] [address] [facility] 08/25/24 Team Status: Inactive Member Role/Relationship Status [...] Status: Active Member Role/Relationship Status Dates Dr. Joradn Rangel MD Attending Provider Active Start: April [...] Provider Active Start: May 31, 2025 Dr. hCilango Wheeler DO Admit Provider Active Start: May [...] Attending Provider Active Start: June 01, 2025 Manager Athletics Relationship Specialty Start Date End Date Mathieu Virgen MD [address] [place], [place] [address] PCP - General Family Medicine 01/10/18 Denisha Shepard, PAIGE.MANUFACTURING MAINTENANCE TECHNICIAN [address] [place] [address] [facility] 08/25/24 Julianna Hood, FOXING CLOSER.MANUFACTURING MAINTENANCE TECHNICIAN [address] [place] [address] [facility] 08/25/24 Team Status: Active Member [...] 30, 2025 Dr. Y[facility] Active Start: April 29, 2025 [...] 30, 2025 Dr. Yola [facility]ales [facility] Active Start: April 30, 2025 [...] 30, 2025 Dr. Yola [facility]ales [facility] Active Start: April 30, 2025 [...] April 08, 2025 Megan M Rufener , HARBOR DEPARTMENT MANAGER-C Referring Provider Active Start: April 08, 2025 [...] 30, 2025 Dr. Yola [facility]ales [facility] Active Start: April 30, 2025 [...] 30, 2025 Dr. Yola [facility]ales [facility] Active Start: April 30, 2025 [...] content) DATE CREATED AUTHOR 05/18/2024 [facility] DATE CREATED AUTHOR AUTHOR'S ORGANIZ ATION 06/27/2025 [facility] DATE CREATED AUTHOR AUTHOR'S ORGANIZ ATION 07/14/2025 [facility] DATE CREATED AUTHOR AUTHOR'S ORGANIZ ATION 07/30/2025 [facility] FOR RECORDS PERTAINING TO PATIENTS [...] BE BASED ON THE PRIMARY CLINICAL RECORDS. [facility] [employer] [facility]. provides no warranty or guarantee of the accuracy or completeness of information in this document.
[2025-09-12] MEDS: Orphenadrine 60 MG/2 ML Ampul IM (13:26)
[2025-09-12 13:58] VITALS: BP 115/69; PULSE 71; RESP 14; O2SAT 99
--- NOTE | 2025-09-12 14:15 | ED.RN ---
Daughter is super angry because they called out and he had to urinate. Aide wasnt sure how the pt was going to get up so she was waiting until the nurse came back. Pt got up himself and went to the bathroom. He wet his pants. Daughter said that he needs an attends and a bag for his wet clothing. I apologised to the daughter as I didnt know that he had called out and her response was sure as all of you are just sitting out here. They department at the time was getting multiple patients and just the aide was at the desk. We got her a new brief and a bag and offered to help him and she refused to let us help.
--- NOTE | 2025-09-12 14:30 | ED.RN ---
1428: PT. AMBULATED W/ ROLLATOR FROM BATHROOM TO BED IN ROOM 6. PT. ASSISTED BACK INTO BED W/ STANDBY ASSIST PER PT. REQUEST. WARM BLANKET PROVIDED. CALL LIGHT WITHIN REACH. FAMILY MEMBER ASKED ABOUT NEEDS WELL. FAMILY MEMBER ASKED FOR DOOR TO BE CLOSED AND CURTAIN TO BE PULLED SHUT. TECH. Varinder ANDERSON PULLED CURTAIN TO PROVIDE PT. PRIVACY, BUT FAMILY MEMBER PULLED IT FURTHER AROUND STATING I WILL GET IT THE REST OF THE WAY I GUESS. THE ROOM DOOR WAS CLOSED BY THIS NURSE.
--- NOTE | 2025-09-12 14:40 | ED.RN ---
Pt requests coffee with [address] Pay. Pt was given coffee per request
--- NOTE | 2025-09-12 14:41 | ED.RN ---
Pt was warned that coffee is hot. Pts response was Cheryl been waiting on you
[2025-09-12 15:05] VITALS: BP 145/86; PULSE 61; RESP 12; TEMP 36.8; O2SAT 100
== END 2025-09-12 15:15 | disposition home or self-care (01) ==
PROVIDERS: Emergency Provider Emergency Medicine; PCP Family Medicine; Visit Provider Emergency Medicine
DX: G89.29 Other chronic pain (principal); I11.0 Hypertensive heart disease with heart failure; I50.32 Chronic diastolic (congestive) heart failure; Z79.4 Long term (current) use of insulin; E11.9 Type 2 diabetes mellitus without complications; E78.00 Pure hypercholesterolemia, unspecified; E66.9 Obesity, unspecified; M47.27 Other spondylosis with radiculopathy, lumbosacral region; I25.10 Atherosclerotic heart disease of native coronary artery without angina pectoris; Z87.891 Personal history of nicotine dependence; M25.552 Pain in left hip; Z90.49 Acquired absence of other specified parts of digestive tract; K21.9 Gastro-esophageal reflux disease without esophagitis
CPT/HCPCS: 72131; 72192; 82962; 96372; 99283